=== PATIENT | male | born 1965 | race Caucasian/White ===

== ENCOUNTER 2022-09-06 08:24 | Outpatient (OUT) | payer OTHER, SELFPAY | END 2022-09-06 08:25 | disposition home or self-care (01) | LOC: LAB 08:24 | PROVIDERS: PCP Family Medicine; Visit Provider Family Medicine | DX: R19.7 Diarrhea, unspecified (principal) | CPT/HCPCS: 87045; 87046; 87427; 87493; 87507 ==

== ENCOUNTER 2022-11-27 14:05 | Outpatient (OUT) | payer OTHER, SELFPAY ==
[2022-11-27 14:54] LABS: Hematocrit 42.1 % (42.0-54.0); Hemoglobin 14.2 g/dL (14.0-18.0); Mean Corpuscular HGB Conc 33.7 g/dL (29.9-35.2); Mean Corpuscular Hemoglobin 31.6 pg (25.9-34.0); Mean Corpuscular Volume 93.6 fL (80.0-94.0); Mean Platelet Volume 9.4 fL (9.5-13.5); Platelet Count 235 10^3/uL (150-450); Red Cell Distribution Width 12.8 % (11.0-15.0); White Blood Count 5.3 10^3/uL (4.0-11.0)
[2022-11-27 15:00] LABS: Bilirubin Urine NEGATIVE (NEGATIVE); Blood Urine NEGATIVE (NEGATIVE); Clarity Urine CLEAR (CLEAR); Color Urine YELLOW (YELLOW); Glucose Urine UA NEGATIVE (NEGATIVE); Ketones Urine NEGATIVE (NEGATIVE); Leukocyte Esterase Urine NEGATIVE (NEGATIVE); Nitrite Urine NEGATIVE (NEGATIVE); Protein Urine NEGATIVE (NEG/TRACE); Urobilinogen Urine 0.2 EU/dL (0.2-1.0); pH Urine 5.5 (5.0-9.0)
[2022-11-27 15:08] LABS: Bacteria Urine NONE SEEN #/HPF (NONE SEEN); Mucus Urine NONE SEEN (NONE SEEN); RBC Urine NONE SEEN #/HPF (0-2); Squamous Epithelial Cell Urine RARE #/LPF (NONE/RARE); WBC Urine NONE SEEN #/HPF (NONE SEEN)
[2022-11-27 15:09] LABS: Cast Seen? SEEN #/LPF (NONE SEEN); Hyaline Casts Urine MODERATE
[2022-11-27 15:18] LABS: Creatinine Urine Random 128.19 mg/dL (20.00-300.00); Protein Creatinine Ratio Urine 0.08; Total Protein Urine Random 10.1 mg/dL (<=11.9)
[2022-11-27 15:26] LABS: Percent Iron Saturation 52.7 %
[2022-11-27 15:27] LABS: Albumin Level 3.8 g/dL (3.4-5.0); Anion Gap 11.3; BUN Creatinine Ratio 15.1; Calcium 8.9 mg/dL (8.5-10.1); Carbon Dioxide 29.3 mmol/L (21.0-32.0); Chloride 106 mmol/L (98-107); Estimated GFR (African America >60 (>=60); Estimated GFR (Non-African Ame 52 (>=60); Glucose 137 mg/dL (74-106); Magnesium 1.7 mg/dL (1.8-2.4); Phosphorus 2.2 mg/dL (2.6-4.7); Potassium 3.6 mmol/L (3.5-5.1); Sodium 143 mmol/L (136-145); Uric Acid 7.2 mg/dL (3.5-7.2)
[2022-11-28 11:09] LABS: PTH, Intact 59 pg/mL (15-65)
== END 2022-11-27 14:06 | disposition home or self-care (01) ==
LOC: LAB 14:07
PROVIDERS: PCP Family Medicine; Visit Provider Internal Medicine
DX: E11.22 Type 2 diabetes mellitus with diabetic chronic kidney disease (principal); N18.30 Chronic kidney disease, stage 3 unspecified; I12.9 Hypertensive chronic kidney disease with stage 1 through stage 4 chronic kidney disease, or unspecified chronic kidney disease; N25.81 Secondary hyperparathyroidism of renal origin; R31.29 Other microscopic hematuria; N20.0 Calculus of kidney; E79.0 Hyperuricemia without signs of inflammatory arthritis and tophaceous disease; D63.1 Anemia in chronic kidney disease
CPT/HCPCS: 36415; 80069; 81001; 82306; 82570; 82728; 83540; 83550; 83735; 83970; 84156; 84550; 85027

== ENCOUNTER 2022-12-24 10:50 | Outpatient (OUT) | payer OTHER, SELFPAY ==
--- NOTE | 2022-12-24 10:54 | XR_ITS ---
The [address] [address] Patient Name: SUKHDEEP SIMENTAL MRN: [id number] date: 1965 Sex: M Assigned Patient Location: [facility] Current Patient Location: [facility] Accession/Order Number: [id number] Exam Date: 12/24/2022 11:10 Report Date: 12/24/2022 11:27 At the request of: BLAYNE ISABEL Procedure: XR chest 2V EXAM: XR chest 2V HISTORY: Left Lower Lobe Consolidation J18.1 COMPARISON: None. TECHNIQUE: PA and lateral views of the chest. FINDINGS: The cardiomediastinal silhouette is normal. No focal consolidation is identified. There is no pneumothorax. No pleural effusion is noted. The osseous structures are intact. XR/XR chest 2V IMPRESSION: No acute cardiopulmonary process. Electronically authenticated by: SHANIA ORTEGA Date: 12/24/2022 11:27
== END 2022-12-24 10:51 | disposition home or self-care (01) ==
LOC: RAD 10:50
PROVIDERS: PCP Family Medicine; Visit Provider Family Medicine
DX: J18.1 Lobar pneumonia, unspecified organism (principal)
CPT/HCPCS: 71046

== ENCOUNTER 2022-12-25 17:01 | Outpatient (REF) | payer OTHER, SELFPAY | END 2022-12-25 17:02 | disposition home or self-care (01) | LOC: LAB 17:01 | PROVIDERS: PCP Family Medicine; Visit Provider Family Medicine | DX: J18.1 Lobar pneumonia, unspecified organism (principal) | CPT/HCPCS: 87070; 87106; 87205 ==

== ENCOUNTER 2023-01-30 10:14 | Outpatient (OUT) | payer OTHER, SELFPAY ==
--- NOTE | 2023-01-30 10:19 | CT_ITS ---
The [address] [address] Patient Name: SUKHDEEP SIMENTAL MRN: [id number] date: 1965 Sex: M Assigned Patient Location: CT Current Patient Location: CT Accession/Order Number: [id number] Exam Date: 01/30/2023 10:28 Report Date: 01/30/2023 10:54 At the request of: CECELIA MURILLO Procedure: CT abdomen pelvis wo con EXAM: CT abdomen pelvis wo con HISTORY: Kidney Stones N20.0 COMPARISON: CT abdomen and pelvis 07/06/2022.. TECHNIQUE: Axial soft tissue windows of the abdomen and pelvis with coronal and sagittal reformats. CT dose reduction technique was used including Automated Exposure Control. Findings: Lack of intravenous contrast limits evaluation. ABDOMEN: Within segment 4 of the liver there is a 1.0 cm cyst. There are couple other scattered hepatic low-attenuation lesions, too small to characterize. The gallbladder, spleen, pancreas, and adrenal glands are unremarkable. Mild nonspecific bilateral perinephric fat stranding. Originating from the lower pole the right kidney is a 2.7 cm cyst. There are nonobstructing bilateral renal stones. The largest is within the lower pole the right kidney measuring approximately 0.9 cm. No renal collecting system or ureteral dilatation bilaterally. Evaluation of the bowel is limited given the absence of oral contrast. There is a small region of inflammation adjacent to the distal descending colon which is stable when compared to the prior study. No bowel obstruction. Colonic diverticula. Postsurgical changes consistent with sleeve gastrectomy. The appendix is nondilated. The aorta is normal caliber. No enlarged abdominal lymph nodes or free abdominal fluid. Small fat-containing umbilicus hernia. Pelvis: Unremarkable bladder. The prostate is nonenlarged. No enlarged pelvic lymph nodes or free pelvic fluid. No aggressive sclerotic or lytic osseous lesions. Multilevel lumbar fusion and laminectomies. CT/CT abdomen pelvis wo con IMPRESSION: 1. Nonobstructing bilateral renal stones. 2. Other more incidental findings, as described above. Electronically authenticated by: SUZANNE CHRISTENSEN Date: 01/30/2023 10:54
== END 2023-01-30 10:15 | disposition home or self-care (01) ==
LOC: CT 10:14
PROVIDERS: PCP Family Medicine; Visit Provider Urology
DX: N20.0 Calculus of kidney (principal)
CPT/HCPCS: 74176

== ENCOUNTER 2023-02-12 12:52 | Outpatient (RCR) | payer OTHER, SELFPAY | END 2023-02-24 08:17 | disposition home or self-care (01) | LOC: PT 12:52 | PROVIDERS: PCP Family Medicine; Visit Provider Family Medicine | DX: R20.2 Paresthesia of skin (principal); R20.0 Anesthesia of skin | CPT/HCPCS: 97110; 97140; 97163 ==

== ENCOUNTER 2023-02-12 12:53 | Outpatient (RCR) | payer OTHER, SELFPAY | END 2023-02-24 08:16 | disposition home or self-care (01) | LOC: OT 12:53 | PROVIDERS: PCP Family Medicine; Visit Provider Family Medicine | DX: R20.2 Paresthesia of skin (principal); R20.0 Anesthesia of skin | CPT/HCPCS: 97165 ==

== ENCOUNTER 2023-02-25 09:33 | Outpatient (RCR) | payer OTHER, SELFPAY | END 2023-03-01 16:03 | disposition home or self-care (01) | LOC: PT 09:33 | PROVIDERS: PCP Family Medicine; Visit Provider Family Medicine | DX: R20.2 Paresthesia of skin (principal); R20.0 Anesthesia of skin | CPT/HCPCS: 97140 ==

== ENCOUNTER 2023-04-03 09:49 | Outpatient (OUT) | payer OTHER, SELFPAY ==
--- NOTE | 2023-04-03 09:52 | CT_ITS ---
The [address] [address] Patient Name: SUKHDEEP SIMENTAL MRN: [id number] date: 1965 Sex: M Assigned Patient Location: CT Current Patient Location: CT Accession/Order Number: [id number] Exam Date: 04/03/2023 10:04 Report Date: 04/03/2023 10:35 At the request of: NON-STAFF PHYSICIAN Procedure: CT lumbar spine wo con EXAM: CT lumbar spine wo con HISTORY: Spinal Stenosis Of Lumbar M48.062 COMPARISON: 01/30/2023 TECHNIQUE: Axial CT images were obtained of the lumbar spine without intravenous contrast. Multiplanar reconstructions were performed. FINDINGS: No acute fracture or malalignment. There is a chronic fibrous union fracture of the superior endplate of the L2 vertebral body, middle column of the spine, at the site of pedicle screws. There are postoperative changes of a posterior lumbar fusion and laminectomy spanning L2-S1. Intervertebral disc constructs are present at L2-L3 and L3-L4. There are extensive multilevel degenerative changes present at these levels. A slight chronic anterolisthesis of L4 on L5 is present. Overall the appearance is not significantly changed from previous exams. There is moderate bilateral neural foraminal stenosis at L5-S1 due to uncovertebral hypertrophy. Mild to moderate left neural foraminal stenosis is present at L2-L3 due to uncovertebral hypertrophy. Evaluation of the soft tissue structures of the spine is limited due to streak artifact from the orthopedic hardware. There is a chronic dextroscoliosis of the lumbar spine. Unremarkable appearance of the paraspinal soft tissues. Multiple nonobstructive renal calculi are noted in the kidneys bilaterally. There is a cyst noted at the lower pole of the right kidney. CT/CT lumbar spine wo con IMPRESSION: 1. No acute abnormality. 2. Postoperative fusion changes spanning L2-S1. 3. Multilevel degenerative changes are present with the greatest degree of bony stenosis at L5-S1 with moderate bilateral neural foraminal stenosis and at L2-L3 with moderate left-sided neural foraminal stenosis. Evaluation of the soft tissues is limited due to streak artifact from orthopedic hardware. 4. Nephrolithiasis Electronically authenticated by: HERRERA LAMAS Date: 04/03/2023 10:35
== END 2023-04-03 09:50 | disposition home or self-care (01) ==
LOC: CT 09:50
PROVIDERS: PCP Family Medicine
DX: M48.062 Spinal stenosis, lumbar region with neurogenic claudication (principal)
CPT/HCPCS: 72131

== ENCOUNTER 2023-06-21 09:40 | Outpatient (OUT) | payer OTHER, SELFPAY ==
[2023-06-21 10:28] LABS: Basophils Percent Auto 0.8 % (0.2-2.0); Eosinophils Absolute Auto 0.2 10^3/uL (0.0-0.7); Hematocrit 42.7 % (42.0-54.0); Hemoglobin 14.4 g/dL (14.0-18.0); Immature Granulocytes Abs Auto 0.01 10^3/uL (0.00-0.03); Immature Granulocytes Pct Auto 0.2 % (0.0-0.5); Lymphocytes Absolute Auto 0.8 10^3/uL (1.2-3.8); Lymphocytes Percent Auto 17.4 % (20.5-60.0); Mean Corpuscular HGB Conc 33.7 g/dL (29.9-35.2); Mean Corpuscular Hemoglobin 31.6 pg (25.9-34.0); Mean Corpuscular Volume 93.6 fL (80.0-94.0); Monocytes Absolute Auto 0.9 10^3/uL (0.3-0.8); Monocytes Percent Auto 18.4 % (1.7-12.0); Neutrophils Absolute Auto 2.8 10^3/uL (1.4-6.5); Neutrophils Percent Auto 59.2 % (43.0-75.0); Platelet Count 203 10^3/uL (150-450); Red Blood Count 4.56 10^6/uL (4.70-6.10); Red Cell Distribution Width 12.1 % (11.0-15.0); White Blood Count 4.7 10^3/uL (4.0-11.0)
[2023-06-21 11:46] LABS: Prostate Specific Antigen Scrn 1.11 ng/mL (<=4.00)
[2023-06-21 11:50] LABS: Estimated Average Glucose 111 mg/dL; Glycohemoglobin A1C 5.5 % (4.5-6.2)
[2023-06-21 11:59] LABS: Alanine Aminotransferase 26 U/L (16-63); Albumin Level 3.6 g/dL (3.4-5.0); Alkaline Phosphatase 77 U/L (46-116); Anion Gap 10.2; Aspartate Amino Transferase 23 U/L (15-37); BUN Creatinine Ratio 14.3; Calcium 8.7 mg/dL (8.5-10.1); Carbon Dioxide 31.4 mmol/L (21.0-32.0); Chloride 105 mmol/L (98-107); Chol HDL Ratio 3.3; Cholesterol 154 mg/dL (<=200); Estimated GFR (African America >60 (>=60); Estimated GFR (Non-African Ame 55 (>=60); Free T3 3.08 pg/mL (2.18-3.98); Globulin 3.5 g/dL; Glucose 105 mg/dL (74-106); HDL Cholesterol 47 mg/dL (40-60); Potassium 3.6 mmol/L (3.5-5.1); Sodium 143 mmol/L (136-145); Thyroid Stimulating Hormone 0.478 uIU/mL (0.358-3.740); Total Protein 7.1 g/dL (6.4-8.2); Triglycerides 95 mg/dL (<=150)
== END 2023-06-21 09:41 | disposition home or self-care (01) ==
LOC: LAB 09:40
PROVIDERS: PCP Family Medicine; Visit Provider Family Medicine
DX: Z00.00 Encounter for general adult medical examination without abnormal findings (principal); E78.5 Hyperlipidemia, unspecified; R73.9 Hyperglycemia, unspecified; Z12.5 Encounter for screening for malignant neoplasm of prostate; I50.30 Unspecified diastolic (congestive) heart failure; I11.0 Hypertensive heart disease with heart failure
CPT/HCPCS: 36415; 80053; 80061; 83036; 83880; 84436; 84443; 84481; 84550; 85025; G0103

== ENCOUNTER 2023-10-01 14:04 | Outpatient (OUT) | payer OTHER, SELFPAY ==
--- NOTE | 2023-10-01 14:17 | XR_ITS ---
The [address] [address] Patient Name: SUKHDEEP SIMENTAL MRN: [id number] date: 1965 Sex: M Assigned Patient Location: [facility] Current Patient Location: Accession/Order Number: [id number] Exam Date: 10/01/2023 14:10 Report Date: 10/03/2023 06:26 At the request of: NON-STAFF PHYSICIAN Procedure: XR lumbar spine 2-3V EXAMINATION: XR lumbar spine 2-3V HISTORY: Lumbar Region Radiculopathy M54.16 ; chronic low back pain COMPARISON: CT lumbar spine 04/03/2023 FINDINGS: BONES: Mechanical fusion L2-S1 via bilateral pedicle screws and rods; no appreciable hardware fracture or loosening. No bone fracture or significant listhesis. Mild-moderate curvature of lumbar spine. Posterior decompression L2-S1. DISC SPACES: Intervertebral disc spacers L2-L3, L3-L4. Moderate-marked narrowing L4-L5, L5-S1. PARASPINOUS: Negative. No paraspinous abnormality is seen. OTHER: Negative. XR/XR lumbar spine 2-3V IMPRESSION: 1. Grossly stable surgical changes and degenerative changes. No appreciable progression or acute abnormality. Electronically authenticated by: AUSTIN LARIOS Date: 10/03/2023 06:26
== END 2023-10-01 14:05 | disposition home or self-care (01) ==
LOC: RAD 14:04
PROVIDERS: PCP Family Medicine
DX: M47.26 Other spondylosis with radiculopathy, lumbar region (principal)
CPT/HCPCS: 72100

== ENCOUNTER 2023-10-29 12:52 | Outpatient (OUT) | payer OTHER, SELFPAY ==
[2023-10-29 13:23] LABS: Hematocrit 47.7 % (42.0-54.0); Hemoglobin 16.8 g/dL (14.0-18.0); Mean Corpuscular HGB Conc 35.2 g/dL (29.9-35.2); Mean Corpuscular Hemoglobin 32.2 pg (25.9-34.0); Mean Corpuscular Volume 91.6 fL (80.0-94.0); Mean Platelet Volume 8.9 fL (9.5-13.5); Platelet Count 236 10^3/uL (150-450); Red Blood Count 5.21 10^6/uL (4.70-6.10); Red Cell Distribution Width 11.5 % (11.0-15.0); White Blood Count 6.9 10^3/uL (4.0-11.0)
[2023-10-29 13:43] LABS: Creatinine Urine Random 15.18 mg/dL (20.00-300.00); Total Protein Urine Random <6.0 mg/dL (<=11.9)
[2023-10-29 13:46] LABS: Bilirubin Urine NEGATIVE (NEGATIVE); Blood Urine NEGATIVE (NEGATIVE); Clarity Urine CLEAR (CLEAR); Color Urine LT. YELLOW (YELLOW); Glucose Urine UA NEGATIVE (NEGATIVE); Ketones Urine NEGATIVE (NEGATIVE); Leukocyte Esterase Urine NEGATIVE (NEGATIVE); Nitrite Urine NEGATIVE (NEGATIVE); Protein Urine NEGATIVE (NEG/TRACE); Specific Gravity Urine 1.015 (1.005-1.025); Urobilinogen Urine 0.2 EU/dL (0.2-1.0)
[2023-10-29 13:55] LABS: Bacteria Urine NONE SEEN #/HPF (NONE SEEN); Mucus Urine NONE SEEN (NONE SEEN); RBC Urine NONE SEEN #/HPF (0-2); WBC Urine NONE SEEN #/HPF (NONE SEEN)
[2023-10-29 13:56] LABS: Cast Seen? SEEN #/LPF (NONE SEEN); Hyaline Casts Urine RARE; Squamous Epithelial Cell Urine FEW #/LPF (NONE/RARE)
[2023-10-29 13:56] LABS: Albumin Level 3.7 g/dL (3.4-5.0); Anion Gap 15.1; BUN Creatinine Ratio 18.4; Carbon Dioxide 26.8 mmol/L (21.0-32.0); Chloride 103 mmol/L (98-107); Estimated GFR (African America >60 (>=60); Estimated GFR (Non-African Ame 51 (>=60); Glucose 167 mg/dL (74-106); Magnesium 1.9 mg/dL (1.8-2.4); Phosphorus 2.3 mg/dL (2.6-4.7); Potassium 3.9 mmol/L (3.5-5.1); Sodium 141 mmol/L (136-145); Uric Acid 7.9 mg/dL (3.5-7.2)
[2023-10-30 10:09] LABS: PTH, Intact 91 pg/mL (15-65)
== END 2023-10-29 12:53 | disposition home or self-care (01) ==
LOC: LAB 12:52
PROVIDERS: PCP Family Medicine; Visit Provider Internal Medicine
DX: N18.30 Chronic kidney disease, stage 3 unspecified (principal); E11.22 Type 2 diabetes mellitus with diabetic chronic kidney disease; I12.9 Hypertensive chronic kidney disease with stage 1 through stage 4 chronic kidney disease, or unspecified chronic kidney disease; N25.81 Secondary hyperparathyroidism of renal origin; R31.29 Other microscopic hematuria; N20.0 Calculus of kidney; E79.0 Hyperuricemia without signs of inflammatory arthritis and tophaceous disease
CPT/HCPCS: 36415; 80069; 81001; 82306; 82570; 83735; 83970; 84156; 84550; 85027

== ENCOUNTER 2023-11-22 15:54 | Outpatient (OUT) | payer OTHER, SELFPAY ==
--- OUTSIDE RECORDS SUMMARY | 2023-11-22 15:59 | XMS_ITS | CCD ---
Author Organization [facility] CliniSywv Care Team Providers Care Hl7 Interface Developer Name Role Phone Derick Isabel Primary Care Provider SUZANNE DAVIES Attending Unavailable DERICK ISABEL Primary Care Unavailable ALINE BHATTI Referring Unavailable DERICK ISABEL Primary Care Unavailable ALINE BHATTI Referring Unavailable DERICK ISABEL Primary Care Unavailable ROSE HILTON Attending Unavailable DERICK ISABEL Primary Care Unavailable DERICK ISABEL Consulting Unavailable Derick Isabel Primary Care Provider [phone] Derick Isabel Primary Care Provider Octavio Becker Attending Provider Derick Isabel MD Primary Care Provider OCTAVIO MCCLELLAN Referring Unavailable DERICK ISABEL Primary Care Unavailable OCTAVIO MCCLELLAN Referring Unavailable DERICK ISABEL Primary Care Unavailable OCTAVIO MCCLELLAN Referring Unavailable DERICK ISABEL Primary Care Unavailable OCTAVIO MCCLELLAN Admitting Unavailable OCTAVIO MCCLELLAN Attending Unavailable DERICK ISABEL Primary Care Unavailable AGUSTIN FISCHER Consulting Unavailable LEISA PERRY Referring Unavailable DERICK ISABEL Primary Care Unavailable DORIE RUSH Consulting Unavailable SAI OWENS Attending Unavailable SAI OWENS Admitting Unavailable UNKNOWN, PHYSICIAN Referring Unavailable UNKNOWN, PHYSICIAN Primary Care Unavailable PAYTON HELM Attending Unavailable PAYTON HELM Admitting Unavailable Oumou Weinstein Unavailable STEPH Lowry Attending Provider Estephanie Lowry Unavailable STEPH Lowry Attending Provider NO FAMILY, PHYSICIAN Primary Care Provider Unava ilDO Gianni Balderasia Attending Provider [phone] Estephanie Lowry Admitting Unavailable Estephanie Lowry Attending Unavailable NO FAMILY, PHYSICIAN Primary Care Unavailable NO FAMILY, PHYSICIAN Primary Care Unavailable Gianni Richter Admitting Unavailable Gianni Richter Attending Unavailable Derick Isabel Primary Care Physician LIDIA ., DR RAI Consulting Unavailable MURILLO ., DR RAI Admitting Unavailable MURILLO ., DR RAI Attending Unavailable HOY ., DR CISNEROS Primary Care Unavailable BREE, ALBERTASAM Consulting Unavailable HOY ., DR CISNEROS Attending Unavailable HOY ., DR CISNEROS Consulting Unavailable HOY ., DR CISNEROS Primary Care Unavailable HOY ., DR CISNEROS Admitting Unavailable MISC, DR GARCIA Admitting Unavailable MISC, DR GARCIA Attending Unavailable WEST, DR OBIE Swartz Consulting Unavailable HOY ., DR CISNEROS Primary Care Unavailable MISC, DR GARCIA Consulting Unavailable CORINNA, OUMOU Admitting Unavailable CORINNA, OUMOU Attending Unavailable HOY ., DR CISNEROS Consulting Unavailable HOY ., DR CISNEROS Primary Care Unavailable MISC, DR GARCIA Consulting Unavailable MISC, DR GARCIA Admitting Unavailable MISC, DR GARCIA Attending Unavailable HOY ., DR CISNEROS Primary Care Unavailable HOY ., DR CISNEROS Attending Unavailable HOY ., DR CISNEROS Referring Unavailable HOY ., DR CISNEROS Consulting Unavailable HOY ., DR CISNEROS Primary Care Unavailable HOY ., DR CISNEROS Admitting Unavailable CORINNA, OUMOU Attending Unavailable CORINNA, OUMOU Admitting Unavailable HOY ., DR CISNEROS Primary Care Unavailable HOY ., DR CISNEROS Consulting Unavailable HOY ., DR ICSNEROS Primary Care Unavailable HOY ., DR CISNEROS Admitting Unavailable HOY ., DR CISNEROS Attending Unavailable HOY ., DR CISNEROS Attending Unavailable HOY ., DR CISNEROS Consulting Unavailable HOY ., DR CISENROS Primary Care Unavailable HOY ., DR CISNEROS Admitting Unavailable WEST, DR OBIE Swartz Consulting Unavailable HOY ., DR CISNEROS Attending Unavailable HOY ., DR CISNEROS Consulting Unavailable HOY ., DR CISNEROS Primary Care Unavailable HOY ., DR CISNEROS Admitting Unavailable MISC, DR GARCIA Admitting Unavailable HOY ., DR CISNEROS Consulting Unavailable MISC, DR GARCIA Attending Unavailable HOY ., DR CISNEROS Primary Care Unavailable MISC, DR GARCIA Consulting Unavailable CORINNA, OUMOU Admitting Unavailable CORINNA, OUMOU Attending Unavailable CORINNA, OUMOU Consulting Unavailable HOY ., DR CISNEROS Primary Care Unavailable HOY ., DR CISNEROS Consulting Unavailable HOY ., DR CISNEROS Admitting Unavailable HOY ., DR CISNEROS Primary Care Unavailable HOY ., DR CISNEROS Attending Unavailable WEST, DR OBIE Swartz Consulting Unavailable BARBARA SCHRADER Consulting Unavailable HOY ., DR CISNEROS Consulting Unavailable HOY ., DR CISNEROS Admitting Unavailable HOY ., DR CISNEROS Primary Care Unavailable HOY ., DR CISNEROS Attending Unavailable ZIEBER, DR AUSTIN Jj Consulting Unavailable HOY ., DR CISNEROS Attending Unavailable HOY ., DR ICSNEROS Consulting Unavailable HOY ., DR CISNEROS Primary Care Unavailable HOY ., DR CISNEROS Admitting Unavailable CORINNA, OUMOU Attending Unavailable CORINNA, OUMOU Consulting Unavailable HOY ., DR CISNEROS Primary Care Unavailable CORINNA, OUMOU Admitting Unavailable MISC, DR GARCIA Consulting Unavailable MISC, DR GARCIA Admitting Unavailable MISC, DR GARCIA Attending Unavailable HOY ., DR CISNEROS Primary Care Unavailable HOY ., DR CISNEROS Attending Unavailable HOY ., DR CISNEROS Consulting Unavailable HOY ., DR CISNEROS Primary Care Unavailable HOY ., DR CISNEROS Admitting Unavailable HOY ., DR CISNEROS Primary Care Unavailable HOY ., DR CISNEROS Consulting Unavailable HOY ., DR CISNEROS Admitting Unavailable HOY ., DR CISNEROS Attending Unavailable WEST, DR OBIE Swartz Consulting Unavailable ZIEBER, DR AUSTIN Jj Consulting Unavailable MURILLO ., DR RAI Admitting Unavailable MURILLO ., DR RAI Attending Unavailable MURILLO ., DR RAI Consulting Unavailable HOY ., DR CISNEROS Primary Care Unavailable WEST, DR OBIE Swartz Consulting Unavailable MISC, DR DOCTOR Recio Unavailable MISC, DR GARCIA Admitting Unavailable MISC, DR GARCIA Attending Unavailable HOY ., DR CISNEROS Primary Care Unavailable LEISA PERRY Admitting Unavailable LEISA PERRY Attending Unavailable MYRANDA .SCARLET Consulting Unavailabl e HOChad ., DR CISNEROS Primary Care Unavailable MISC, DR GARCIA Consulting Unavailable MISC, DR GARCIA Admitting Unavailable MISC, DR GARCIA Attending Unavailable HOY ., DR CISNEROS Primary Care Unavailable Derick Isabel MD Primary Care Provider [phone] ELGAFY, JASON Attending Unavailable SHENDGE, VITHAL Admitting Unavailable SHENDGE, VITHAL Attending Unavailable SHENDGE, VITHAL Referring Unavailable ELGAFY, JASON Attending Unavailable ELGAFY, JASON Referring Unavailable ELGAFY, JASON Referring Unavailable SHENDGE, VITHAL Referring Unavailable SHENDGE, VITHAL Admitting Unavailable SHENDGE, VITHAL Attending Unavailable SHENDGE, VITHAL Referring Unavailable ELGAFY, JASON Attending Unavailable SHENDGE, VITHAL Attending Unavailable SHENDGE, VITHAL Attending Unavailable SHENDGE, VITHAL Referring Unavailable SHENDGE, VITHAL Referring Unavailable SHENDGE, VITHAL Attending Unavailable NATHALY SINGH Attending Unavailable SHENDGE, VITHAL Attending Unavailable SHENDGE, VITHAL Attending Unavailable ELGAFY, JASON Attending Unavailable ELGAFY, JASON Referring Unavailable ELGAFY, JASON Referring Unavailable HABBOUB, EDD Attending Unavailable HABBOUB, EDD Admitting Unavailable HOY, DERICK M Primary Care Unavailable LUUL OVIEDO Consulting Unavailabl Cecelia Goldberg Attending Unavailable Cecelia MURILLO Attending Unavailable Cecelia MURILLO Attending Unavailable Cecelia MURILLO Attending Unavailable NILLCj Attending Unavailable Sarmady, Derick Referring Unavailable NILL, Cj Jj Attending Unavailable Hoy, Derick Referring Unavailable Cecelia MURILLO Attending Unavailable Cecelia MURILLO Attending Unavailable Derick Isabel MD Primary Care Provider [phone] Derick Isabel MD Primary Care Provider [phone] DERICK ISABEL Primary Care Unavailable HABBOUB, EDD Referring Unavailable CJ GALLOWAY Referring Unavailable HOY, DERICK M Primary Care Unavailable HOY, DERICK M Primary Care Unavailable CJ GALLOWAY Referring Unavailable AHSAN FLYNN Attending Unavailable HOY, DERICK M Referring Unavailable HOY, DERICK M Primary Care Unavailable AHSAN FLYNN Attending Unavailable HOY, DERICK M Referring Unavailable HOY, DERICK M Primary Care Unavailable RIDDHI GOSS Attending Unavailable HOY, DERICK M Primary Care Unavailable MYRNA SCHRADER Attending Unavailable HOY, DERICK M Primary Care Unavailable HABBOUB, EDD Attending Unavailable ELGAFY, JASON KAMAL Referring Unavailabl e DERICK ISABEL Primary Care Unavailable EDD MATHEW Attending Unavailable SELF Referring Unavailable DERICK ISABEL Primary Care Unavailable EDD MATHEW Referring Unavailable DERICK ISABEL Primary Care Unavailable EDD MATHEW Attending Unavailable DERICK ISABEL Primary Care Unavailable HELEN MORGAN Referring Unavailable DERICK ISABEL Primary Care Unavailable Unavailable Unavailable Unavailable Allergies Allergy Classification Reported Allergen(s) Allergy Type Date of Onset Reaction(s) Facility (8 sources) Povidone-Iodine; Translations: [povidone iodine topical] Drug Allergy 9 [facility] (11 sources) Povidone-Iodine; Translations: [povidone-iodine] Drug Allergy 9 [facility] (9 sources) soap; Translations: [soap] Allergy to substance 9 [facility] (9 sources) Chlorhexidine; Translations: [CHLORHEXIDINE] Drug Allergy 1 [facility] (9 sources) Iodine; Translations: [IODINE] Drug Allergy 9 [facility] Work Phone: (8 sources) Loratadine; Translations: [loratadine] Drug Allergy 2 [facility] (1 source) Chlorhexidine Drug Allergy [facility] (1 source) Povidone-Iodine; Translations: [Betadine] Drug Allergy [facility] Rep[facility] Medications Current Medications Medication Drug Class(es) Dates Sig (Normalized) Sig (Original) acetaminophen 500 mg oral tablet (8 sources) Start: 01-02-2022 End: 01-10-2023 take 2 tablets by mouth every eight hours acetaminophen (TYLENOL EXTRA STRENGTH) 500 mg tablet TAKE TWO TABLETS BY MOUTH EVERY 8 HOURS 0 01/02/2022 Active Comment on above: [facility] 2 tablets [facility] every 8 hours. acetaminophen 325 mg / HYDROcodone bitartrate 5 mg oral tablet (17 sources) Opioid Agonist Start: 11-10-2021 HYDROcodone-acetami nophen (NORCO) 5-325 mg per tablet Take 1 tablet by mouth 4 (four) times a day as needed. Max Daily Amount: 4 tablets 0 11/10/2021 Active Start: 05-05-2020 End: 05-08-2021 HYDROcodone-acetaminophen (N ORCO) 5-325 MG per tablet Hydrocodone-Acetaminophen Active 1 TAB PO As Directed May 05, 2020 11:40am 0 05/05/2020 05/08/2021 Discontinued (LIST CLEANUP) Start: 05-05-2020 End: 11-07-2023 Hydrocodone-Acetaminophen Di scontinued 1 TAB PO As Directed May 05, 2020 1:00am November 07, 2023 11:13am Start: 04-11-2019 End: 04-14-2019 take 1 tablet by mouth every four hours as needed for pain, then take 1 tablet by mouth as needed for pain HYDROcodone-acetaminophen (NORCO) 5-325 MG per tablet Indications: Acute bilateral low back pain with right-sided sciatica , Traumatic buttock pain Take 1 tablet by mouth every 4 hours as needed for Pain for up to 3 days. Intended supply: 3 days. Take lowest dose possible to manage pain 15 tablet 0 04/11/2019 04/14/2019 Active take 1 tablet by [facility] every six hours HYDROcodone-Acetaminophen 5-325 MG 1 tab let as needed Orally every 6 hrs Active acetaminophen 325 mg / oxyCODONE hydrochloride 10 mg oral tablet (9 sources) Opioid Agonist Start: 11-07-2023 take 1 tablet by mouth every six hours Oxycodone-Acetaminophen Active 1 TAB PO Every 6 hours November 07, 2023 12:00am Start: 10-10-2022 take 1 tablet by [facility] every six hours as needed for pain acetaminophen-oxycodone 325 mg-10 mg ora l tablet 1 tab(s), Oral, q6hr as needed for pain, Refill(s) 0 Start Date: 10/10/22 Status: Ordered Start: 05-25-2021 End: 06-01-2021 oxyCODONE-acetaminophen (PER COCET) 5-325 MG per tablet Indications: S/P laparoscopic sleeve gastrectomy Take 1 tablet by mouth every 6 hours as needed for Pain for up to 7 days. Intended supply: 7 days. Take lowest dose possible to manage pain 28 tablet 0 05/25/2021 06/01/2021 Active Start: 05-24-2021 oxyCODONE-acet aminophen (PERCOCET) 5-325 MG per tablet 1 tablet Start: 11-06-2013 take 1 tablet by [facility] every four hours as needed oxyCODONE-acetaminophen (PERCOCET) 5-325 mg tablet Take 1 tablet by mouth every 4 hours as needed. 20 tablet 0 11/06/2013 Active Comment on above: Take 1 tablet by [facility] every 4 hours as needed. [id number] 200 actuat albuterol 0.09 mg/actuat metered dose inhaler (5 sources) beta2-Adrenergic Agonist Start: 01-07-2021 albuterol (PROVENTIL HFA;VENTOLIN HFA) 90 mcg/actuation inhaler INHALE 2 PUFFS BY MOUTH FOUR TIMES DAILY NEEDED (practice 2 (TWO) puffs 30 MINUTES prior) 0 01/07/2021 Active ALBUTEROL SULFAT E HFA IN Inhale into the lungs as needed 0 Active albuterol 0.833 mg/ml / ipratropium bromide 0.167 mg/ml inhalation solution (1 source) Anticholinergic, beta2-Adrenergic Agonist Start: 05-24-2021 ipratropium-albuterol (DUONEB) nebulizer solution 1 ampule amLODIPine 10 mg oral tablet (7 sources) Dihydropyridine Calcium Channel Merlyn Start: 12-12-2019 take 1 tablet by mouth once daily amLODIPine 10 MG tablet Take 10 mg by mouth daily. 0 12/12/2019 Active Start: 12-12-2019 take 5 mg by mouth once daily amLODIPine 10 MG tablet Take 5 mg by mouth daily. 0 12/12/2019 Active Comment on above: Take 10 mg by mouth once daily. apixaban 5 mg oral tablet (3 sources) Factor Xa Inhibitor take 2 tablets by mouth twice daily, then take 1 tablet by mouth twice daily apixaban (ELIQUIS) 5 mg tablet Eliquis 5 mg tablet TAKE 2 TABLETS BY MOUTH TWICE DAILY FOR 3 DAYS, then TAKE 1 TABLET BY MOUTH TWICE DAILY 0 Active End: 05-08-2021 Apixaban (ELIQUIS PO) Take b y mouth 0 05/08/2021 Discontinued (LIST CLEANUP) aprepitant 40 mg oral capsule (1 source) Substance P/Neurokinin-1 Receptor Antagonist Start: 05-25-2021 aprepitant (EMEND) capsule 80 mg atropine sulfate 0.025 mg / diphenoxylate hydrochloride 2.5 mg oral tablet (2 sources) Anticholinergic, Cholinergic Muscarinic Antagonist, Antidiarrheal Start: 09-12-2018 take 1 tablet by mouth three times daily diphenoxylate-a tropine (LOMOTIL) 2.5-0.025 mg per tablet Take 1 tablet by mouth 3 (three) times a day. 0 09/12/2018 Active 60 actuat budesonide 0.16 mg/actuat / formoterol fumarate 0.0045 mg/actuat metered dose inhaler (2 sources) Corticosteroid, beta2-Adrenergic Agonist Start: 01-01-2021 take 2 puff(s) by inhalation twice daily SYMBICORT 160-4.5 mcg/actuation inhaler Inhale 2 puffs 2 (two) times a day. 0 01/01/2021 Active bumetanide 1 mg oral tablet (20 sources) Loop Diuretic Start: 11-07-2023 take 1 mg by mouth once daily Bumetanide Active 1 MG PO Daily November 07, 2023 12:00am Start: 11-07-2021 take 1 tablet by [facility] once daily bumetanide (BUMEX) 1 mg tablet Take 1 tablet by mouth once daily. 0 11/07/2021 Active Comment on above: Take 1 tablet by [facility] once daily. cyclobenzaprine hydrochloride 10 mg oral tablet (3 sources) Muscle Relaxant Start: 05-24-2021 cyclobenzaprine (FLEXERIL) tablet 10 mg Start: 09-29-2018 [facility] 2 tablets [facility] daily cyclobenzaprine (FLEXERIL) 10 mg tablet Take 20 mg by mouth nightly. 11 09/29/2018 Active diclofenac sodium 75 mg delayed release oral tablet (2 sources) Nonsteroidal Anti-inflammatory Drug Start: 09-09-2018 take 1 tablet by mouth in the morning diclofenac (VOLTAREN) 75 mg EC tablet Take 75 mg by mouth in the morning and 75 mg before bedtime. 11 09/09/2018 Active docusate sodium 100 mg oral capsule (6 sources) Start: 12-11-2022 End: 01-10-2023 take 1 capsule by mouth twice daily docusate sodium (COLACE) 100 mg capsule Take 1 capsule by mouth two times a day. 60 capsule 0 12/11/2022 01/10/2023 Active Comment on above: Take 1 capsule by [facility] two times a day. doxazosin 4 mg oral tablet (20 sources) alpha-Adrenergic Merlyn Start: 02-15-2021 doxazosin (CARDURA) 4 mg tablet Take 4 mg by mouth. 0 02/15/2021 Active Start: 05-05-2020 End: 05-08-2021 take 4 mg by mouth twice daily Doxazosin Active 4 MG P O Twice daily May 05, 2020 1:00am Comment on above: Take 4 mg by mouth. doxepin hydrochloride 10 mg oral capsule (5 sources) Tricyclic Antidepressant Start: take 10 mg by mouth once daily Doxepin Active 10 MG PO Daily November 07, 2023 12:00am Start: 11-29-2022 take 1 capsule by [facility] in the morning doxepin (SINEquan) 10 mg capsule Take 1 capsule (10 mg total) by mouth in the morning. 0 11/29/2022 Active doxycycline hyclate 100 mg oral capsule (4 sources) Tetracycline-class Drug take 1 capsule by mouth in the morning, then take 1 capsule by mouth at bedtime doxycycline (VIBRAMYCIN) 100 mg capsule Take 1 capsule (100 mg total) by mouth in the morning and 1 capsule (100 mg total) before bedtime. 0 Active 1 ml enoxaparin sodium 100 mg/ml prefilled syringe (3 sources) Low Molecular Weight Heparin Start: End: enoxaparin (LOVENOX) 100 MG/ML injection Inject 1 mL into the skin 2 times daily for 10 days 20 mL 0 05/26/2021 06/05/2021 Active Start: 05-24-2021 enoxaparin (LO VENOX) injection 60 mg ergocalciferol 1.25 mg oral capsule (4 sources) Provitamin D2 Compound Start: 01-05-2021 ergocalciferol (DRISDOL) 1,250 mcg (50,000 unit) capsule Take 50,000 Units by mouth. 0 01/05/2021 Active Start: 01-05-2021 take 1 capsule by [facility] vitamin D (ERGOCALCIFEROL) 1.25 MG (51907 UT) CAPS capsule Indications: Vitamin D deficiency Take 1 capsule by mouth once a week for 8 doses 8 capsule 0 01/05/2021 Active famotidine 20 mg oral tablet (12 sources) Histamine-2 Receptor Antagonist Start: 11-07-2021 take 1 tablet by mouth once daily famotidine (PEPCID) 20 mg tablet Take 20 mg by mouth nightly. 0 11/07/2021 Active Start: 05-24-2021 famotidine (PE PCID) tablet 20 mg FeroSul 325 mg oral tablet (3 sources) Start: 03-19-2022 take 1 tablet by mouth twice daily FeroSul 325 mg oral tablet 325 mg = 1 tab(s), Oral, BID, Refills(s) 0 Start Date: 03/19/22 Status: Ordered Start: 03-19-2022 FeroSul 325 mg oral tablet Refills(s) 0 Start Date: 03/19/22 Status: Ordered ferrous sulfate (20 sources) Start: 11-07-2023 take 1 tablet by [facility] twice daily Ferrous Sulfate Active 1 TAB PO Twice daily November 07, 2023 12:00am FreeTextSi tablet Orally twice a day; Note: Source Status: Taking; Provider: Corinna Coello ( ) Start: 10-31-2022 take 1 tablet by [facility] every twelve hours FEROSUL 325 mg (65 mg iron) tablet Take 1 tablet by mouth every 12 (twelve) hours. 0 10/31/2022 Active Start: 11-07-2021 take 1 tablet by [facility] in the morning, then take 1 tablet by mouth at bedtime FeroSuL 325 mg (65 mg iron) tablet Take 1 tablet (325 mg total) by mouth in the morning and 1 tablet (325 mg total) before bedtime. 0 11/07/2021 Active take 1 tablet by [facility] twice daily Ferrous Sulfate 325 (65 Fe) MG 1 tablet Orally twice a day Active Comment on above: Take 1 tablet by [facility] every 12 (twelve) hours. gabapentin 100 mg oral capsule (1 source) Anti-epileptic Agent Start: 022 gabapentin (NEURONTIN) capsule 100 mg hydroCHLOROthiazide 25 mg oral tablet (3 sources) Thiazide Diuretic Start: 020 take 1 tablet by mouth once daily hydroCHLOROthiazide 25 MG tablet Take 1 tablet by mouth daily. 30 tablet 3 02/02/2020 Active HYDROCHLOROTHIAZ NICK ORAL Take by mouth. 0 Active Comment on above: Take by mouth. 1 ml HYDROmorphone hydrochloride 1 mg/ml cartridge (2 sources) Opioid Agonist Start: 05-24-2021 HYDROmorphone (DILAUDID) injection 1 mg Start: 04-11-2019 End: 04-11-2019 HYDROmorphone (DILAUDID) inj ection 1 mg hydrOXYzine hydrochloride 25 mg oral tablet (16 sources) Antihistamine Start: 11-06-2022 take 1 tablet by mouth four times daily as needed hydrOXYzine HCl (ATARAX) 25 mg tablet TAKE 1 TABLET BY MOUTH FOUR TIMES DAILY NEEDED MUST LAST 30 DAYS 0 11/06/2022 Active Comment on above: TAKE 1 TABLET BY [facility] FOUR TIMES DAILY NEEDED MUST LAST 30 DAYS indomethacin 50 mg oral capsule (7 sources) Nonsteroidal Anti-inflammatory Drug indomethacin (INDOCIN) 50 mg capsule Take 50 mg by mouth in the morning and 50 mg at noon and 50 mg in the evening. Take with meals. 0 Active indomethacin 50 MG capsule Every 6 hours. 0 Active irbesartan 300 mg oral tablet (20 sources) Angiotensin 2 Receptor Merlyn Start: 11-07-2023 take 150 mg by mouth once daily Irbesartan Active 150 MG PO Daily November 07, 2023 12:00am Start: 02-15-2020 take 0.5 tablet by m outh once daily irbesartan (AVAPRO) 300 mg tablet 1/2 tablet Orally Once a day for 60 days 0 02/15/2020 Active Start: 02-15-2020 End: 05-08-2021 take 1 tablet by mouth once daily Avapro 300 mg Tab 300 mg = 1 tab(s), Oral, Daily, Refills(s) 0, High blood pressure Start Date: 02/15/20 Status: Ordered take 1 tablet by [facility] every twenty-four hours Irbesartan 150 MG 1 tablet Orally Once a day Active Comment on above: 1/2 tablet Orally On ce a day for 60 days 24 hr levomilnacipran 40 mg extended release oral capsule (2 sources) Serotonin and Norepinephrine Reuptake Inhibitor take 1 capsule by mouth every twenty-four hours in the morning levomilnacipran (FETZIMA) 40 mg capsule,extended release 24 hr Take 40 mg by mouth in the morning. 0 Active LORazepam 1 mg oral tablet (9 sources) Benzodiazepine Start: 023 take 1 tablet by mouth three times daily Ativan 1 mg Tab mg tab(s), Oral, TID, Refills(s) 0 Start Date: 03/19/22 Status: Ordered take 1 tablet by [facility] every six hours as needed LORazepam (ATIVAN) 1 mg tablet Take 1 tablet (1 mg total) by mouth every 6 (six) hours as needed. 0 Active LORazepam (ATIVA N) 0.5 mg tab Take by mouth three times daily as needed. 0 Active take 1 tablet by [facility] every twenty-four hours Ativan 1 MG 1 tablet at bedtime as neede d Orally Once a day Not-Taking Comment on above: Take by mouth three times daily as needed. metFORMIN hydrochloride 500 mg oral tablet (2 sources) Biguanide take 1 tablet by mouth in the morning metFORMIN (GLUCOPHAGE) 500 mg tablet Take 1 tablet by mouth in the morning and 1 tablet before bedtime. 0 Active metoclopramide 10 mg oral tablet (20 sources) Dopamine-2 Receptor Antagonist Start: 03-19-19 23 take 1 tablet by mouth twice daily at bedtime metoclopramide (REGLAN) 10 mg tablet TAKE 1 TABLET BY MOUTH TWICE DAILY (AT SUPPER & AT BEDTIME) 0 08/01/2022 Active Comment on above: Take 10 mg by mouth as needed. metoprolol tartrate 25 mg oral tablet (3 sources) beta-Adrenergic Merlyn Start: 05-26-19 End: 06-25-19 take 1 tablet by mouth twice daily metoprolol tartrate (LOPRESSOR) 25 MG tablet Take 1 tablet by mouth 2 times daily 60 tablet 0 05/25/2021 06/24/2021 Active Start: 05-24-2021 End: 05-25-2021 metoprolol (LOPRESSOR) injec tion 5 mg Multiple Vitamin (ONE-A-DAY MENS PO) (3 sources) Multiple Vitamin (ONE-A-DAY MENS PO) Take by mouth daily 0 Active Multivitamin, Therapeutic w/ Minerals (3 sources) Start: 0 take 1 tablet by mouth once daily Multivitamin, Therapeutic w/ Minerals 1 tab(s), Oral, Daily, Prophylaxis Start Date: 02/23/20 Status: Ordered naloxone hydrochloride 40 mg/ml nasal spray (11 sources) Opioid Antagonist Start: 3 naloxone 4 mg/actuation nasal spray (NARCAN) Use 1 spray in one nostril as needed for overdose. May repeat every 2 to 3 min in alternating nostrils until medical assistance is available 2 Each 0 12/20/2022 Active Comment on above: Use 1 spray in one n ostril as needed for overdose. May repeat every 2 to 3 min in alternating nostrils until medical assistance is available naloxone 4 mg/actuation nasal spray (NARCAN) (1 source) Start: 3 naloxone 4 mg/actuation nasal spray (NARCAN) Use 1 spray in one nostril as needed for overdose. May repeat every 2 to 3 min in alternating nostrils until medical assistance is available 2 Each 0 12/20/2022 Active omeprazole 20 mg delayed release oral capsule (20 sources) Proton Pump Inhibitor Start: take 20 mg by mouth twice daily Omeprazole Active 20 MG PO Twice daily November 07, 2023 12:00am Start: 01-16-2022 take 1 capsule by [facility] twice daily omeprazole (PRILOSEC) 20 mg capsule Indications: Pre-op examination Take 1 capsule by mouth twice daily. 0 11/21/2022 Active Comment on above: Take 1 capsule by [facility] twice daily. 2 ml ondansetron 2 mg/ml injection (4 sources) Serotonin-3 Receptor Antagonist Start: 05-24-2021 ondansetron (ZOFRAN) injection 4 mg Start: 09-29-2018 ondansetron OD T (ZOFRAN-ODT) 4 mg disintegrating tablet Dissolve 1 tablet on tongue as needed. 0 09/29/2018 Active oxaprozin (2 sources) Nonsteroidal Anti-inflammatory Drug oxaprozin (DAYPRO ORAL) Daypro 0 Active oxyCODONE hydrochloride 15 mg oral tablet (7 sources) Opioid Agonist Start: 2022 End: 2022 take 1 tablet by mouth every six hours as needed for pain oxyCODONE (ROXICODONE) 15 mg immediate release tablet Indications: Lumbar adjacent segment disease with spondylolisthesis Take 1 tablet by mouth every 6 hours as needed for pain for up to 7 days. 28 tablet 0 12/20/2022 12/27/2022 Active Start: 12-11-2022 End: 12-18-2022 take 1 tablet by mouth every three hours as needed for pain oxyCODONE (ROXICODONE) 15 mg immediate release tablet Indications: Post-op pain Take 1 tablet by mouth every 3 hours as needed for pain for up to 7 days. 56 tablet 0 12/11/2022 12/18/2022 Active Start: 03-19-2022 oxyCODONE 5 mg Tab Refills(s) 0 Start Date: 03/19/22 Status: Ordered Comment on above: Take 1 tablet by evangel[facility] every 3 hours as needed for pain for up to 7 days. Take 1 tablet by evangel[facility] th every 6 hours as needed for pain for up to 7 days. pantoprazole 40 mg delayed release oral tablet (14 sources) Proton Pump Inhibitor take 1 tablet by mouth in the morning pantoprazole (PROTONIX) 40 mg EC tablet Take 40 mg by mouth in the morning. 0 Active take 40 mg by mouth once daily P antoprazole Sodium (PROTONIX PO) Take 40 mg by mouth daily 0 Active Phenazopyridine (8 sources) Pyridium Active phentermine hydrochloride 37.5 mg oral tablet (6 sources) Sympathomimetic Amine Anorectic Start: 11-07-19 take 1 tablet by mouth once daily Phentermine (Adipex-P) 37.5 mg tablet Active 37.5 MG PO Daily November 07, 2023 12:00am take 1 tablet by mouth once tavo y phentermine (ADIPEX-P) 37.5 mg tablet phentermine 37.5 mg tablet TAKE 1 TABLET BY MOUTH ONCE DAILY 0 Active take 1 capsule by mo uth once daily in the morning phentermine (ADIPEX-P) 37.5 MG capsule T marco antonio 37.5 mg by mouth every morning. 0 Active pioglitazone 30 mg oral tablet (20 sources) Peroxisome Proliferator Receptor alpha Agonist, Peroxisome Proliferator Receptor gamma Agonist, Thiazolidinedione Start: 11-07-2023 take 15 mg by mouth once daily Pioglitazone Active 15 MG PO Daily November 07, 2023 11:13am Start: 12-12-2019 End: 11-07-2023 pioglitazone (ACTOS) 30 mg t ablet take 2 tablets by mo uth in the morning pioglitazone (ACTOS) 15 mg tablet Take 2 tablets (30 mg total) by mouth in the morning. 0 Active predniSONE 20 mg oral tablet (2 sources) Start: 04-12-2019 End: 04-17-2019 take 2 tablets by mouth once daily predniSONE (DELTASONE) 20 MG tablet Take 2 tablets by mouth daily for 5 days 10 tablet 0 04/12/2019 04/17/2019 Active pregabalin 100 mg oral capsule (3 sources) Start: 12-07-2020 End: 05-08-2021 take 1 capsule by mouth in the morning, then take 1 capsule by mouth at bedtime pregabalin (LYRICA) 100 mg capsule Take 1 capsule (100 mg total) by mouth in the morning and 1 capsule (100 mg total) before bedtime. 0 12/07/2020 Active Probiotic Product (PROBIOTIC DAILY PO) (3 sources) Probiotic Produc t (PROBIOTIC DAILY PO) Take by mouth daily 0 Active promethazine hydrochloride 25 mg oral tablet (2 sources) Phenothiazine Start: 05-25-2021 take 1 tablet by mouth every six hours as needed for nausea promethazine (PHENERGAN) 25 MG tablet Take 1 tablet by mouth every 6 hours as needed for Nausea 30 tablet 0 05/25/2021 Active Start: 05-24-2021 promethazine ( PHENERGAN) tablet 25 mg 5 ml sodium chloride 9 mg/ml injection (3 sources) Start: 05-24-2021 0.9 % sodium c hloride infusion Start: 05-24-2021 sodium chlorid e flush 0.9 % injection 5-40 mL spironolactone 100 mg oral tablet (7 sources) Aldosterone Antagonist Start: 01-01-2021 take 1 tablet by mouth once daily spironolactone (ALDACTONE) 100 mg tablet Take 100 mg by mouth daily. 0 01/01/2021 Active End: 05-25-2021 take 1 tablet by mouth every other day spironolactone (ALDACTONE) 100 MG tablet Take 100 mg by mouth every other day 0 05/25/2021 Discontinued (Stop Taking at Discharge) sucralfate 1000 mg oral tablet (16 sources) Aluminum Complex Start: 03-19-2022 take 1 tablet by mouth twice daily sucralfate 1 g Tab 1 gm = 1 tab(s), Oral, BID, Refills(s) 0 Start Date: 03/19/22 Status: Ordered Start: 03-19-2022 sucralfate 1 g Tab Refills(s) 0 Start Date: 03/19/22 Status: Ordered Start: 10-08-2021 take 1 tablet by evangel[facility] at bedtime sucralfate (CARAFATE) 1 gram tablet Take 1 tablet (1 g total) by mouth in the morning and 1 tablet (1 g total) at noon and 1 tablet (1 g total) in the evening and 1 tablet (1 g total) before bedtime. 0 10/08/2021 Active tamsulosin hydrochloride 0.4 mg oral capsule (20 sources) alpha-Adrenergic Merlyn Start: 11-07-2023 take 0.4 mg by mouth once daily at bedtime Tamsulosin Active 0.4 MG PO Daily at bedtime November 07, 2023 12:00am Start: 03-03-2021 [facility] 1 capsule [facility] daily tamsulosin (FLOMAX) 0.4 mg Take 1 capsule by mouth once daily. 0 03/19/2022 Active Comment on above: Take 1 capsule by [facility] once daily. temazepam 15 mg oral capsule (3 sources) Benzodiazepine Start: take 1 capsule by mouth once daily as needed temazepam (RESTORIL) 15 mg capsule Take 15 mg by mouth nightly as needed. 0 01/12/2021 Active End: 05-08-2021 take 2 capsules by mouth once daily as needed for sleep temazepam (RESTORIL) 15 MG capsule Take 30 mg by mouth nightly as needed for Sleep. 0 05/08/2021 Discontinued (LIST CLEANUP) 1 ml testosterone cypionate 200 mg/ml injection (20 sources) Androgen Start: 11-07-2023 inject 200 mg by intramuscular injection every other week Testosterone Cypionate Active 200 MG IM EVERY 2 WEEKS November 07, 2023 12:00am Start: 05-05-2020 testosterone c ypionate (DEPO-TESTOSTERONE) 100 mg/mL injection INJECT 1.5 ML INTO THE MUSCLE EVERY 2 WEEKS DIRECTED 0 05/05/2020 Active Start: 05-05-2020 End: 05-08-2021 inject 100 mg by intramuscular injection every other week testosterone cypionate (DEPOTESTOTERONE CYPIONATE) 100 MG/ML injection Testosterone Cypionate Active 100 MG IM EVERY 2 WEEKS May 05, 2020 11:40am Last taken 05/03/20 0 05/05/2020 05/08/2021 Discontinued (DUPLICATE) Start: 05-05-2020 End: 11-07-2023 inject 100 mg by intramuscular injection every other week Testosterone Cypionate Discontinued 100 MG IM EVERY 2 WEEKS May 05, 2020 1:00am November 07, 2023 11:18am Last taken 05/03/20 inject 0.75 mL by in tramuscular injection every other week Depo-Testosterone 200 MG/ML 3/4 ml Intramuscular every 2 weeks Active Comment on above: INJECT 1.5 ML INTO T HE MUSCLE EVERY 2 WEEKS DIRECTED TESTOSTERONE AQUEOUS IM (3 sources) TESTOSTERONE AQU EOUS IM Inject 0.75 mLs into the muscle every 14 days 0 Active Testosterone Cypionate 200 mg/mL intramuscular solution (3 sources) Start: 023 inject 200 mg by intramuscular injection every other week Testosterone Cypionate 200 mg/mL intramuscular solution 200 mg = 1 mL, IntraMuscular, q2wk, Refills(s) 0 Start Date: 03/19/22 Status: Ordered tiZANidine 4 mg oral tablet (20 sources) Central alpha-2 Adrenergic Agonist Start: 021 tiZANidine (ZANAFLEX) 4 MG tablet 4 mg 1-2 every night 0 05/05/2020 Active Start: 05-05-2020 take 8 mg by mouth o nce daily at bedtime Tizanidine Active 8 MG PO Daily at bedtime May 05, 2020 1:00am Start: 02-15-2020 take 1 tablet by evangel[facility] th every eight hours Zanaflex 4 mg Tab 4 mg = 1 tab(s), Oral, q8hr, Refills(s) 0, Sleep Start Date: 02/15/20 Status: Ordered Start: 08-21-2018 take 2 tablets by mo uth once daily tiZANidine (ZANAFLEX) 4 mg tablet Take 2 tablets (8 mg total) by mouth nightly. 0 08/21/2018 Active tizanidine HCl ( ZANAFLEX ORAL) daily at bedtime. 0 Active tizanidine HCl ( ZANAFLEX ORAL) tiZANidine (Omar flex) 4 MG tablet Every 8 hours. 0 Active Comment on above: daily at bedtime. traZODone hydrochloride 150 mg oral tablet (20 sources) Serotonin Reuptake Inhibitor Start: 4 take 150 mg by mouth once daily at bedtime Trazodone Active 150 MG PO Daily at bedtime November 07, 2023 12:00am Start: 10-31-2022 traZODone (GABINO YREL) 150 mg tablet Start: 04-17-2021 take 1 tablet by [facility] once daily traZODone (DESYREL) 50 mg tablet Take 1 tablet (50 mg total) by mouth nightly. 0 04/17/2021 Active Zinc (3 sources) ZINC PO Take by mouth daily 0 Active Completed/Discontinued Medications Medication Drug Class(es) Dates Sig (Normalized) Sig (Original) amitriptyline hydrochloride 50 mg oral tablet (16 sources) Tricyclic Antidepressant Start: 05-05-2020 End: 11-07-2023 take 150 mg by mouth once daily at bedtime Amitriptyline Discontinued 150 MG PO Daily at bedtime May 05, 2020 1:00am November 07, 2023 11:12am take 1 tablet by mouth once tavo y amitriptyline (ELAVIL) 50 mg tablet Take 50 mg by mouth nightly. 0 Active Comment on above: Take 50 mg by mouth daily at bedtime. baclofen 10 mg oral tablet (4 sources) gamma-Aminobutyric Acid-ergic Agonist Start: 021 End: take 10 mg by mouth once daily at bedtime Baclofen Discontinued 10 MG PO Daily at bedtime May 05, 2020 1:00am November 07, 2023 11:12am Takes if zanaflex is unavailable besifloxacin 6 mg/ml ophthalmic suspension (2 sources) Quinolone Antimicrobial Besifloxacin (BESIVANCE) 0.6 % drps Use 1 Drop in both eyes as directed. 0 Active Comment on above: Use 1 Drop in both e yes as directed. brimonidine tartrate 2 mg/ml / timolol 5 mg/ml ophthalmic solution (2 sources) alpha-Adrenergic Agonist, beta-Adrenergic Merlyn Brimonidine-Timolol (COMBIGAN) 0.2-0.5 % drop Use 1 Drop in the right eye twice daily. 0 Active Comment on above: Use 1 Drop in the ri ght eye twice daily. 168 hr buprenorphine 0.01 mg/hr transdermal system (2 sources) Partial Opioid Agonist apply 1 dose transdermal route every week buprenorphine (BUTRANS) 10 mcg/hour Apply 1 Patch as directed once each week. 0 Active Comment on above: Apply 1 Patch as dir ected once each week. calcium chloride 0.0014 meq/ml / potassium chloride 0.004 meq/ml / sodium chloride 0.103 meq/ml / sodium lactate 0.028 meq/ml injectable solution (2 sources) Start: End: lactated ringers infusion carvedilol 25 mg oral tablet (12 sources) alpha-Adrenergic Merlyn, beta-Adrenergic Merlyn Start: End: take 25 mg by mouth twice daily Carvedilol Discontinued 25 MG PO Twice daily May 05, 2020 1:00am November 07, 2023 11:12am Comment on above: Take 25 mg by mouth twice daily with meals. ceFAZolin (ANCEF) 1,000 mg in sterile water 10 mL IV syringe (1 source) Start: End: ceFAZolin (ANCEF) 1,000 mg in sterile water 10 mL IV syringe cephalexin 500 mg oral capsule (2 sources) Cephalosporin Antibacterial take 1 capsule by mouth twice daily cephALEXin (KEFLEX) 500 mg capsule Take 500 mg by mouth twice daily. 0 Active Comment on above: Take 500 mg by mouth twice daily. cetirizine hydrochloride 10 mg oral tablet (20 sources) Histamine-1 Receptor Antagonist Start: End: take 10 mg by mouth once daily at bedtime Cetirizine Discontinued 10 MG PO Daily at bedtime May 05, 2020 1:00am November 07, 2023 11:12am CETIRIZINE HCL ( ZYRTEC ORAL) Take by mouth. Prn 0 Active take 15 mg by mouth once daily C etirizine HCl (ZYRTEC ALLERGY PO) Take 15 mg by mouth daily 0 Active Comment on above: Take by mouth. Prn chlorhexidine gluconate 0.2 mg/ml in NS ophthalmic drops (2 sources) chlorhexidine gluconate 0.2 mg/ml in NS ophthalmic drops Use in the right eye every hour. 0 Active Comment on above: Use in the right eye every hour. cyclopentolate hydrochloride 5 mg/ml ophthalmic solution (2 sources) cyclopentolate (CYCLOGYL) 0.5 % ophthalmic solution Use 1 Drop in both eyes as directed. 0 Active Comment on above: Use 1 Drop in both e yes as directed. dapagliflozin 5 mg oral tablet (10 sources) Sodium-Glucose Cotransporter 2 Inhibitor Start: End: take 1 tablet by mouth once daily Dapagliflozin Propanediol (Farxiga) 5 mg tablet Discontinued 5 MG PO Daily May 05, 2020 1:00am November 07, 2023 11:12am 1 ml dexamethasone phosphate 10 mg/ml injection (1 source) Corticosteroid Start: End: dexamethasone (PF) (DECADRON) injection 10 mg 0.5 ml dulaglutide 1.5 mg/ml auto-injector (14 sources) GLP-1 Receptor Agonist Start: End: Dulaglutide (Trulicity) 0.75 mg/0.5 mL pen injector Discontinued 0.75 MG SUBCUT every week May 05, 2020 1:00am November 07, 2023 11:13am takes on Saturday dulaglutide 0.75 mg/0.5 mL pen injector Inject 0.75 mg under the skin every 7 days. On Mondays 0 Active Dulaglutide (Vinicius licity) 0.75 MG/0.5ML Solution Pen-injector injection as directed 0 Active erythromycin 0.005 mg/mg ophthalmic ointment (2 sources) Macrolide, Macrolide Antimicrobial erythromycin ophthalmic ointment Use 1 application in the right eye daily at bedtime. 0 Active Comment on above: Use 1 application in the right eye daily at bedtime. 2 ml fentaNYL 0.05 mg/ml injection (1 source) Opioid Agonist Start: 05-25-19 End: 05-25-19 fentaNYL (SUBLIMAZE) injection 50 mcg FLUoxetine 20 mg oral capsule (2 sources) Serotonin Reuptake Inhibitor take 1 capsule by mouth once daily FLUoxetine (PROZAC) 20 mg capsule Take 20 mg by mouth once daily. 0 Active Comment on above: Take 20 mg by mouth once daily. glimepiride 4 mg oral tablet (14 sources) Sulfonylurea Start: 12-12-19 End: 11-07-19 take 4 mg by mouth once daily Glimepiride Discontinued 4 MG PO Daily May 05, 2020 1:00am November 07, 2023 11:13am 1 ml ketorolac tromethamine 30 mg/ml cartridge (1 source) Nonsteroidal Anti-inflammatory Drug, Cyclooxygenase Inhibitor Start: 04-11-19 End: 04-11-19 ketorolac (TORADOL) injection 60 mg lansoprazole 30 mg delayed release oral capsule (2 sources) Proton Pump Inhibitor take 1 capsule by mouth once daily lansoprazole (PREVACID) 30 mg capsule Take 30 mg by mouth once daily. 0 Active Comment on above: Take 30 mg by mouth once daily. levoFLOXacin (10 sources) Quinolone Antimicrobial LEVOFLOXACIN ORAL Take by mouth. lavaza 0 Active levoFLOXacin Act deann Comment on above: Take by mouth. lavaz a 2 ml midazolam 1 mg/ml injection (1 source) Benzodiazepine Start: 2021 End: 2021 midazolam PF (VERSED) injection 1 mg 2 ml orphenadrine citrate 30 mg/ml injection (1 source) Muscle Relaxant Start: 2019 End: 2019 orphenadrine (NORFLEX) injection 60 mg PERFLUTREN LIPID MICROSPHERE 1.3 ML/8.7ML (1 source) Start: 2019 End: 2019 PERFLUTREN LIPID MICROSPHERE 1.3 ML/8.7ML prednisoLONE acetate 10 mg/ml ophthalmic suspension (2 sources) Corticosteroid Start: 2013 prednisoLONE acetate (PRED FORTE, ECONOPRED PLUS) 1 % ophthalmic suspension Use 1 Drop in the right eye once daily. 1 Bottle 0 12/29/2013 Active Comment on above: Use 1 Drop in the ri ght eye once daily. 72 hr scopolamine 0.0139 mg/hr transdermal system (1 source) Anticholinergic Start: 2021 End: 2021 scopolamine (TRANSDERM-SCOP) transdermal patch 1 patch simvastatin 10 mg oral tablet (20 sources) HMG-CoA Reductase Inhibitor Start: 2016 End: 2023 take 10 mg by mouth once daily at bedtime Simvastatin Discontinued 10 MG PO Daily at bedtime May 05, 2020 1:00am November 07, 2023 11:14am Comment on above: Take 1 tablet by [facility] once daily. tetrahydrozoline (2 sources) TETRAHYDROZOLINE HCL (EYE DROPS OPHTHALMIC) Use in eyes. voriconizole 1% q hour OD 0 Active Comment on above: Use in eyes. voricon izole 1% q hour OD tobramycin 3 mg/ml ophthalmic solution (2 sources) Aminoglycoside Antibacterial tobramycin (TOBREX) 0.3 % ophthalmic solution Use 1 Drop in the right eye as directed. 0 Active Comment on above: Use 1 Drop in the ri ght eye as directed. traMADol hydrochloride 50 mg oral tablet (3 sources) Opioid Agonist End: 2021 take 1 tablet by mouth every six hours as needed traMADol (ULTRAM) 50 mg tablet Take 50 mg by mouth every 6 hours as needed. 0 Active Comment on above: Take 50 mg by mouth every 6 hours as needed. valACYclovir 500 mg oral tablet (2 sources) Herpesvirus Nucleoside Analog DNA Polymerase Inhibitor, Herpes Simplex Virus Nucleoside Analog DNA Polymerase Inhibitor, Herpes Zoster Virus Nucleoside Analog DNA Polymerase Inhibitor Start: 2013 take 1 tablet by mouth once daily valACYclovir (VALTREX) 500 mg tablet Take 1 tablet by mouth once daily. 30 tablet 3 02/03/2014 Active Comment on above: Take 1 tablet by [facility] once daily. Vancomycin (2 sources) Glycopeptide Antibacterial VANCOMYCIN HCL (VANCOMYCIN 50 MG/ML) Use 1 Drop in the right eye as directed. 0 Active Comment on above: Use 1 Drop in the ri ght eye as directed. voriconazole 200 mg injection (4 sources) Azole Antifungal Start: 2013 take 1 tablet by mouth twice daily voriconazole (VFEND) 200 mg tablet Take 1 tablet by mouth twice daily. 60 tablet 2 11/26/2013 Active Start: 11-26-2013 take 1 drop(s) into the eye(s) every two hours voriconazole (VFEND) 1% Ophth Drops ([facility]) Use 1 Drop in the right eye every 2 hours. 1 Bottle 3 11/26/2013 Active Comment on above: Use 1 Drop in the ri ght eye every 2 hours. Take 1 tablet by [facility] th twice daily. Problems Active Problems Problem Classification Problem Date Documented Date Episodic/Chronic Allergic reactions (3 sources) Environmental allergy 05-24-2016 Episodic Anxiety disorders (17 sources) Anxiety disorder, unspecified; Translations: [Anxiety] Onset: 2 12-07-2022 Chronic Blindness and vision defects (1 source) Unspecified visual loss; Translations: [UNSPECIFIED VISUAL LOSS] Onset: 2 Chronic Calculus of urinary tract (20 sources) History of calculus of kidney; Translations: [Personal history of urinary calculi] Onset: 2 12-28-2020 Episodic Chronic kidney disease (20 sources) Chronic kidney disease stage 4; Translations: [Chronic kidney disease, stage 4 (severe)] Onset: 2 Resolved: 3 Chronic Complication of device; implant or graft (20 sources) Retained ureteric stent; Translations: [Infection and inflammatory reaction due to other internal joint prosthesis, subsequent encounter] Onset: 2 02-15-2020 Episodic Deficiency and other anemia (11 sources) Anemia of renal disease; Translations: [Anemia in chronic kidney disease] Chronic Deficiency and other anemia (4 sources) Anemia in chronic kidney disease; Translations: [ANEMIA IN CHRONIC KIDNEY DISEASE] Onset: 2 Resolved: 2 Chronic Diabetes mellitus with complications (20 sources) Type 2 diabetes mellitus in obese; Translations: [Type 2 diabetes mellitus with other specified complication] Onset: 1 Resolved: 2 12-28-2020 Chronic Diabetes mellitus without complication (20 sources) Type 2 diabetes mellitus without complication; Translations: [Diabetes mellitus] Onset: 0 02-02-2020 Chronic Disorders of lipid metabolism (18 sources) Pure hypercholesterolemia, unspecified; Translations: [Hyperlipidemia] Onset: 2 12-07-2022 Chronic Diverticulosis and diverticulitis (1 source) Diverticulosis of large intestine without perforation or abscess without bleeding; Translations: [DVRTCLOS LG INT NO PERF/ABSC W/O BL] Onset: 3 Chronic Esophageal disorders (17 sources) Gastro-esophageal reflux disease without esophagitis; Translations: [Gastroesophageal reflux disease] Onset: 2 12-07-2022 Chronic Essential hypertension (20 sources) Essential hypertension; Translations: [Hypertensive disorder] Onset: 0 02-02-2020 Chronic Fluid and electrolyte disorders (6 sources) Hyperkalemia; Translations: [HYPERKALEMIA] Onset: 2 Resolved: 2 Episodic Genitourinary symptoms and ill-defined conditions (15 sources) Dysuria; Translations: [Dysuria] Onset: 2 Episodic Hyperplasia of prostate (16 sources) Benign prostatic hyperplasia; Translations: [Benign prostatic hyperplasia without lower urinary tract symptoms] Onset: 3 12-07-2022 Chronic Hypertension with complications and secondary hypertension (20 sources) Chronic kidney disease due to hypertension; Translations: [Hypertensive chronic kidney disease with stage 1 through stage 4 chronic kidney disease, or unspecified chronic kidney disease] Onset: 2 Resolved: 2 Chronic Joint disorders and dislocations; trauma-related (2 sources) Chronic instability of knee, right knee; Translations: [Chronic instability of knee, right knee] Onset: 2 Chronic Osteoarthritis (1 source) Unspecified osteoarthritis, unspecified site; Translations: [UNSPECIFIED OSTEOARTHRITIS UNS SITE] Onset: 2 Chronic Other connective tissue disease (3 sources) Presence of unspecified artificial knee joint; Translations: [PRESENCE UNS ARTIFICIAL KNEE JOINT] Onset: 3 Chronic Other connective tissue disease (1 source) Presence of artificial knee joint, bilateral; Translations: [PRESENCE ARTIFICIAL KNEE JNT BILAT] Onset: 2 Chronic Other connective tissue disease (2 sources) Presence of right artificial knee joint; Translations: [Presence of right artificial knee joint] Onset: 2 Chronic Other diseases of kidney and ureters (16 sources) Secondary hyperparathyroidism; Translations: [Secondary hyperparathyroidism of renal origin] Onset: 3 Resolved: 3 11-21-2022 Chronic Other diseases of kidney and ureters (5 sources) Secondary hyperparathyroidism of renal origin; Translations: [Secondary hyperparathyroidism (of renal origin)] Onset: 2 Resolved: 2 Chronic Other diseases of kidney and ureters (2 sources) Disorder of kidney and/or ureter; Translations: [Other specified disorders of kidney and ureter] Onset: 3 Chronic Other diseases of kidney and ureters (3 sources) Renal mass 03-19-2022 Chronic Other diseases of kidney and ureters (4 sources) Other specified disorders of kidney and ureter; Translations: [OTHER SPEC DISORDERS KIDNEY URETER] Onset: 3 Chronic Other endocrine disorders (2 sources) Male hypogonadism 10-10-2022 Chronic Other gastrointestinal disorders (2 sources) History of sleeve gastrectomy; Translations: [Bariatric surgery status] Onset: 2 Episodic Other gastrointestinal disorders (5 sources) Altered bowel function; Translations: [Change in bowel habit] Onset: 3 Episodic Other gastrointestinal disorders (2 sources) Acute diarrhea 10-10-2022 Episodic Other hereditary and degenerative nervous system conditions (18 sources) Essential tremor; Translations: [Essential tremor] Onset: 3 10-10-2022 Chronic Other injuries and conditions due to external causes (1 source) Traumatic AND/OR non-traumatic injury; Translations: [Injury] Episodic Other nervous system disorders (3 sources) Other chronic pain; Translations: [OTHER CHRONIC PAIN] Onset: 2 Chronic Other nervous system disorders (2 sources) Neurogenic claudication 10-10-2022 Episodic Other nervous system disorders (3 sources) Other acute postprocedural pain; Translations: [Other acute postprocedural pain] Onset: 3 Episodic Other non-traumatic joint disorders (5 sources) Chronic pain following right total knee arthroplasty; Translations: [Pain in right knee] 12-28-2020 Episodic Other nutritional; endocrine; and metabolic disorders (19 sources) Morbid obesity; Translations: [Morbid (severe) obesity due to excess calories] Onset: 0 02-02-2020 Chronic Other nutritional; endocrine; and metabolic disorders (20 sources) Body mass index 40+ - severely obese; Translations: [Morbid (severe) obesity due to excess calories] Onset: 1 12-28-2020 Chronic Other nutritional; endocrine; and metabolic disorders (1 source) Obesity, unspecified; Translations: [OBESITY UNSPECIFIED] Onset: 2 Chronic Other nutritional; endocrine; and metabolic disorders (1 source) Body mass index (BMI) 45.0-49.9, adult; Translations: [BODY MASS INDEX BMI 45.0-49.9 ADULT] Onset: 2 Chronic Other nutritional; endocrine; and metabolic disorders (1 source) Morbid (severe) obesity due to excess calories; Translations: [MORBID SEVERE OBES D/T EXCESS CARLY] Onset: 2 Chronic Other nutritional; endocrine; and metabolic disorders (1 source) Body mass index (BMI) 40.0-44.9, adult; Translations: [BODY MASS INDEX BMI 40.0-44.9 ADULT] Onset: 2 Chronic Other nutritional; endocrine; and metabolic disorders (3 sources) Hyperuricemia without signs of inflammatory arthritis and tophaceous disease; Translations: [Other abnormal blood chemistry] Episodic Other nutritional; endocrine; and metabolic disorders (1 source) Hyperuricemia; Translations: [Hyperuricemia without signs of inflammatory arthritis and tophaceous disease] 11-06-2023 Episodic Other screening for suspected conditions (not mental disorders or infectious disease) (11 sources) Encounter for screening for malignant neoplasm of prostate; Translations: [Other specified abnormal findings of blood chemistry] Onset: 2 Episodic Pulmonary heart disease (2 sources) 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 Residual codes; unclassified (5 sources) Sleep apnea 05-25-2016 Chronic Comment on above: has cpap but hasnt w orn in 3 years because he is claustrophobic Residual codes; unclassified (1 source) Obstructive sleep apnea (adult) (pediatric); Translations: [OBSTRUCTIVE SLEEP APNEA] Onset: 2 Chronic Residual codes; unclassified (16 sources) Obstructive sleep apnea syndrome; Translations: [Obstructive sleep apnea (adult) (pediatric)] Onset: 2 12-07-2022 Chronic Residual codes; unclassified (1 source) Edema of lower extremity; Translations: [Fluid retention in legs] Episodic Residual codes; unclassified (1 source) Swelling - edema - symptom; Translations: [Edema] Onset: 0 02-02-2020 Episodic Residual codes; unclassified (3 sources) Insomnia 05-24-2016 Episodic Spondylosis; intervertebral disc disorders; other back problems (20 sources) Degeneration of lumbar intervertebral disc; Translations: [Other intervertebral disc degeneration, lumbar region] Onset: 2 10-10-2022 Chronic Unclassified (1 source) Infection and inflammatory reaction due to internal right knee prosthesis, initial encounter; Translations: [Infection and inflammatory reaction due to internal right knee prosthesis, initial encounter] Onset: 2 Unclassified (1 source) CHRN KIDNEY DISEASE STG 3 UNSP; Translations: [CHRN KIDNEY DISEASE STG 3 UNSP] Onset: 3 Unclassified (1 source) CONTACT W/AND (SUSP) EXPOS COVID-19; Translations: [CONTACT W/AND (SUSP) EXPOS COVID-19] Onset: 2 Unclassified (1 source) PERSONAL HISTORY OF COVID-19; Translations: [PERSONAL HISTORY OF COVID-19] Onset: 2 Unclassified (1 source) LOW BACK PAIN, UNSPECIFIED; Translations: [LOW BACK PAIN, UNSPECIFIED] Onset: 2 Unclassified (1 source) Patient encounter status 02-04-2023 Unclassified (1 source) New Patient Onset: 3 Past or Other Problems Problem Classification Problem Date Documented Da te Episodic/Chronic Abdominal pain (4 sources) Unspecified abdominal pain; Translations: [UNSPECIFIED ABDOMINAL PAIN] Onset: 12-21-2021 Episodic Cardiac dysrhythmias (5 sources) Tachycardia; Translations: [Tachycardia, unspecified] Onset: 01-25-2021 01-25-2021 Episodic Chronic kidney disease (12 sources) Chronic kidney disease; Translations: [Chronic kidney disease, stage III (moderate)] Deficiency and other anemia (4 sources) Anemia, unspecified; Translations: [ANEMIA UNSPECIFIED] Onset: 09-25-2021 Episodic Deficiency and other anemia (16 sources) Iron deficiency anemia; Translations: [Iron deficiency anemia, unspecified] Onset: 12-07-2022 12-07-2022 Episodic Inflammation; infection of eye (except that caused by tuberculosis or sexually transmitteddisease) (5 sources) Herpes simplex iridocyclitis; Translations: [Herpesviral iridocyclitis] Onset: 12-09-2013 Resolved: 12-07-2022 12-09-2013 Episodic Malaise and fatigue (4 sources) Other fatigue; Translations: [OTHER FATIGUE] Onset: 08-09-2021 Episodic Other acquired deformities (2 sources) Spondylolisthesis, lumbar region; Translations: [Lumbar adjacent segment disease with spondylolisthesis] Onset: 12-07-2022 Episodic Other aftercare (1 source) Other skilled nursing (current) drug therapy; Translations: [OTH CARE HOME CURRENT DRUG THERAPY] Onset: 06-28-2022 Episodic Other connective tissue disease (1 source) Arthrodesis status; Translations: [ARTHRODESIS STATUS] Onset: 08-22-2021 Episodic Other connective tissue disease (2 sources) Muscle weakness (generalized); Translations: [Muscle weakness (generalized)] Onset: 12-27-2021 Episodic Other connective tissue disease (16 sources) History of lumbar fusion; Translations: [Arthrodesis status] Onset: 12-07-2022 12-07-2022 Episodic Other eye disorders (5 sources) Corneal edema; Translations: [Unspecified corneal edema] Onset: 12-10-2013 Resolved: 12-07-2022 12-10-2013 Episodic Other gastrointestinal disorders (1 source) Bariatric surgery status; Translations: [BARIATRIC SURGERY STATUS] Onset: 08-22-2021 Episodic Other infections; including parasitic (3 sources) Personal history of other infectious and parasitic diseases; Translations: [PERSONAL HX OTH INF AND PARASITIC DZ] Onset: 03-16-2022 Episodic Other lower respiratory disease (5 sources) Dyspnea; Translations: [Dyspnea, unspecified] Onset: 01-25-2021 01-25-2021 Episodic Other lower respiratory disease (4 sources) Shortness of breath; Translations: [SHORTNESS OF BREATH] Onset: 10-31-2021 Episodic Other lower respiratory disease (1 source) Personal history of pneumonia (recurrent); Translations: [PERSONAL HX OF PNEUMONIA RECURRENT] Onset: 08-22-2021 Episodic Other non-traumatic joint disorders (2 sources) Pain in right knee; Translations: [Pain in right knee] Onset: 01-05-2022 Episodic Other non-traumatic joint disorders (2 sources) Other instability, right knee; Translations: [Other instability, right knee] Onset: 12-27-2021 Episodic Pulmonary heart disease (20 sources) H/O: pulmonary embolus; Translations: [Personal history of pulmonary embolism] Onset: 08-22-2021 12-28-2020 Episodic Residual codes; unclassified (1 source) Pain in buttock Episodic Residual codes; unclassified (3 sources) Other specified postprocedural states; Translations: [OTH SPECIFIED POSTPROCEDURAL STATES] Onset: 03-20-2022 Episodic Residual codes; unclassified (2 sources) Pain; Translations: [Pain] Onset: 12-20-2021 Episodic Skin and subcutaneous tissue infections (1 source) Cellulitis, unspecified; Translations: [CELLULITIS UNSPECIFIED] Onset: 09-28-2021 Episodic Spondylosis; intervertebral disc disorders; other back problems (20 sources) Acute back pain with sciatica; Translations: [Chronic low back pain] Onset: 08-17-2021 12-28-2020 Episodic Results Test Name Value Interpretation Reference Range Facility Erythrocyte distribution wid th Auto (RBC) [Ratio]on 10-29-2023 Erythrocyte distribution width (RBC) [Ratio] 11.5 % 11.0-15.0 [facility] Estimated glomerular filtrat ion rate (GFR) non- Americanon 10-29-2023 GFR/1.73 sq M.predicted among non-blacks MDRD (S/P/Bld) [Vol rate/Area] 51 mL/min/{1.73_m2} Low >=60 [facility] Hematocrit Auto (Bld) [Volum e fraction]on 10-29-2023 Hematocrit (Bld) [Volume fraction] 47.7 % 42.0-54.0 [facility] Hemoglobin [Mass/volume] in Bloodon 10-29-2023 Hemoglobin (Bld) [Mass/Vol] 16.8 g/dL 14.0-18.0 [facility] Laboratory - Chemistry and C hemistry - challengeon 10-29-2023 Albumin [Mass/Vol] 3.7 g/dL 3.4-5.0 [facility] Calcium [Mass/Vol] 9.0 mg/dL 8.5-10.1 [facility] Chloride [Moles/Vol] 103 mmol/L 98-107 [facility] CO2 [Moles/Vol] 26.8 mmol/L 21.0-32.0 [facility] Creatinine [Mass/Vol] 1.41 mg/dL High 0.70-1.30 [facility] GFR/1.73 sq M.predicted MDRD (S/P/Bld) [Vol rate/Area] mL/min/{1.73_m2} >=60 [facility] Glucose [Mass/Vol] 167 mg/dL High 74-106 [facility] Magnesium [Mass/Vol] 1.9 mg/dL 1.8-2.4 [facility] Potassium [Moles/Vol] 3.9 mmol/L 3.5-5.1 [facility] Sodium [Moles/Vol] 141 mmol/L 136-145 [facility] Urate [Mass/Vol] 7.9 mg/dL High 3.5-7.2 [facility] Urea nitrogen [Mass/Vol] 26.0 mg/dL High 7.0-18.0 [facility] Urea nitrogen/Creatinine [Mass ratio] 18.4 mg/mg [facility] Bilirubin Ql (U) Negative NEGATIVE [facility] Glucose (U) [Mass/Vol] Negative NEGATIVE [facility] Ketones Ql (U) Negative NEGATIVE [facility] pH (U) 6.0 [pH] 5.0-9.0 [facility] Specific gravity (U) [Rel density] 1.015 1.005-1.025 [facility] Urobilinogen Qn (U) 0.2 {Dahiana'U}/dL 0.2-1.0 [facility] Laboratory - Specimen inform ationon 10-29-2023 Appearance (U) CLEAR CLEAR [facility] Color (U) LT. YELLOW YELLOW [facility] Laboratory - Urinalysison Hyaline casts LM Ql (Urine sed) RARE [facility] Leukocyte esterase Test strip Ql (U) Negative NEGATIVE [facility] Mucus Ql (Urine sed) NONE SEEN NONE SEEN [facility] Nitrite Ql (U) Negative NEGATIVE [facility] Protein Ql (U) Negative NEG/TRACE [facility] Leukocytes [#/volume] correc romaine for nucleated erythrocytes in Blood by Automated counon 10-29-2023 WBC corrected for nucl RBC Auto (Bld) [#/Vol] 6.9 10 3/uL 4.0-11.0 [facility] MCH Auto (RBC) [Entitic mass ]on 10-29-2023 MCH (RBC) [Entitic mass] 32.2 pg 25.9-34.0 [facility] MCHC Auto (RBC) [Mass/Vol]on 10-29-2023 MCHC (RBC) [Mass/Vol] 35.2 g/dL 29.9-35.2 [facility] MCV Auto (RBC) [Entitic vol] on 10-29-2023 MCV (RBC) [Entitic vol] 91.6 fL 80.0-94.0 [facility] No Panel Informationon 10-28 25-Hydroxy Vitamin D Total 40.8 ng/mL [facility] Comment on above: <20 ng/mL Vit D defi cient20-<30 ng/mL Vit D doexymgrzjth21-613 ng/mL Vit D sufficient>100 ng/mL Potential Toxicity Parathyroid Hormone (Intact) 91 pg/mL Abnormal 15-65 [facility] Comment on above: Performed at: [facility] [place] [id number] Director: Logan Martinez PhD, Phone: [phone] Phosphorus Level 2.3 mg/dL Low 2.6-4.7 [facility] Urine Bacteria NONE SEEN #/HPF NONE SEEN [facility] Urine Occult Blood Negative NEGATIVE [facility] Urine Other Casts SEEN #/LPF Abnormal NONE SEEN [facility] Urine Random Creatinine 15.18 mg/dL Low 20.00-300.00 [facility] Urine Random Total Protein <6.0 mg/dL <=11.9 [facility] Urine RBC NONE SEEN #/HPF 0-2 [facility] Urine Squamous Epithelial Cells FEW #/LPF Abnormal NONE/RARE [facility] Urine WBC NONE SEEN #/HPF NONE SEEN [facility] Platelet mean volume Auto (B ld) [Entitic vol]on 10-29-2023 Platelet mean volume (Bld) [Entitic vol] 8.9 fL Low 9.5-13.5 [facility] Platelets Auto (Bld) [#/Vol] on 10-29-2023 Platelets (Bld) [#/Vol] 236 10 3/uL 150-450 [facility] RBC Auto (Bld) [#/Vol]on RBC (Bld) [#/Vol] 5.21 10 6/uL 4.70-6.10 [facility] Serum or plasma anion gap de terminationon 09-03-2024 Anion gap [Moles/Vol] 15.1 mmol/L [facility] CNPAlejandra 10-04-2023 CNPN Telephone (NEADFV) SUKHDEEP SIMENTAL ([id number]) 1965 M Date Time Provider Department 10/04/23 EDD MATHEW NEADFV During your visit today, we recorded the following information about you: Arianna Little 10/04/2023 10:42 AM Signed [place] report XR Lumbar Spine 2-3v scanned to Epic Allergies As of Date: 10/04/2023 (No Known Allergies) Date Reviewed: 03/25/2023 Reviewed by: Mundo Ness PCNA - Fully Assessed Reason for Visit: Results [95] Prescriptions as of 10/04/2023 - naloxone 4 mg/actuation nasal spray (NARCAN) Use 1 spray in one nostril as needed for overdose. May repeat every 2 to 3 min in alternating nostrils until medical assistance is available - metoclopramide HCl (REGLAN) 10 mg tablet Take 10 mg by mouth as needed. - FEROSUL 325 mg (65 mg iron) tablet Take 1 tablet by mouth every 12 (twelve) hours. - hydrOXYzine HCl (ATARAX) 25 mg tablet TAKE 1 TABLET BY MOUTH FOUR TIMES DAILY NEEDED MUST LAST 30 DAYS - omeprazole (PRILOSEC) 20 mg capsule Take 1 capsule by mouth twice daily. - doxazosin (CARDURA) 4 mg tablet Take 4 mg by mouth. - irbesartan (AVAPRO) 300 mg tablet 1/2 tablet Orally Once a day for 60 days - pioglitazone (ACTOS) 30 mg tablet - bumetanide (BUMEX) 1 mg tablet Take 1 tablet by mouth once daily. - tamsulosin (FLOMAX) 0.4 mg Take 1 capsule by mouth once daily. - tizanidine HCl (ZANAFLEX ORAL) daily at bedtime. - traZODone (DESYREL) 150 mg tablet - simvastatin (ZOCOR) 10 mg tablet Take 1 tablet by mouth once daily. 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] 12/09/2013 12/07/2022 Corneal edema, unspecified [H18.20] 12/10/2013 12/07/2022 Anxiety [F41.9] 12/27/2021 Essential hypertension [I10] 02/02/2020 Essential tremor [G25.0] 11/21/2022 Gastroesophageal reflux disease [K21.9] 12/27/2021 History of pulmonary embolism [Z86.711] 01/05/2022 Morbid obesity (HCC) [E66.01] 12/27/2021 ELIDA (obstructive sleep apnea) [G47.33] 12/27/2021 Secondary hyperparathyroidism (HCC) [N25.81] 11/21/2022 11/21/2022 Type 2 diabetes mellitus without complications *02/02/2020 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 Status post lumbar spinal fusion [Z98.1] 12/07/2022 Stage 3 chronic kidney disease (HCC) [N18.30] 12/07/2022 CIRO (iron deficiency anemia) [D50.9] 12/07/2022 HLD (hyperlipidemia) [E78.5] 12/07/2022 BPH (benign prostatic hyperplasia) [N40.0] 12/07/2022 Obesity, Class III, BMI >= 40 [E66.01] 12/08/2022 Encounter Status:Closed by JUAN PABLO NOVA on 10/04/23 [facility] [place] 07-30-2023 OLGAN Telephone (NEADFV) SUKHDEEP SIMENTAL ([id number]) 1965 M Date Time Provider Department 07/30/23 LOUARLEYMARIUMEDD NEADFV During your visit today, we recorded the following information about you: Arianna Little 07/30/2023 11:51 AM Signed Pt phoned regarding upcoming visit 10/06 work[employer]iance 11 comp appt. Pt unable to manage virtual visit asking for telephone visit. Pt asking how far in advance to do X-Ray. Pt will have X-Ray done locally at [place]. Please call and advise Pt phone # [phone] Emily Rondon 07/30/2023 1:07 PM Signed Have sent XR Lumbar order to [place] fax # [phone] as requested from patient. Riddhi Goss APRN.OLGA 07/30/2023 3:25 PM Signed Called Sukhdeep, no answer, left VM Allergies As of Date: 07/30/2023 (No Known Allergies) Date Reviewed: 03/25/2023 Reviewed by: Mundo Ness PCNA - Fully Assessed Reason for Visit: Appointment [186] Orders [681] Prescriptions as of 07/30/2023 - naloxone 4 mg/actuation nasal spray (NARCAN) Use 1 spray in one nostril as needed for overdose. May repeat every 2 to 3 min in alternating nostrils until medical assistance is available - metoclopramide HCl (REGLAN) 10 mg tablet Take 10 mg by mouth as needed. - FEROSUL 325 mg (65 mg iron) tablet Take 1 tablet by mouth every 12 (twelve) hours. - hydrOXYzine HCl (ATARAX) 25 mg tablet TAKE 1 TABLET BY MOUTH FOUR TIMES DAILY NEEDED MUST LAST 30 DAYS - omeprazole (PRILOSEC) 20 mg capsule Take 1 capsule by mouth twice daily. - doxazosin (CARDURA) 4 mg tablet Take 4 mg by mouth. - irbesartan (AVAPRO) 300 mg tablet 1/2 tablet Orally Once a day for 60 days - pioglitazone (ACTOS) 30 mg tablet - bumetanide (BUMEX) 1 mg tablet Take 1 tablet by mouth once daily. - tamsulosin (FLOMAX) 0.4 mg Take 1 capsule by mouth once daily. - tizanidine HCl (ZANAFLEX ORAL) daily at bedtime. - traZODone (DESYREL) 150 mg tablet - simvastatin (ZOCOR) 10 mg tablet Take 1 tablet by mouth once daily. 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] 12/09/2013 12/07/2022 Corneal edema, unspecified [H18.20] 12/10/2013 12/07/2022 Anxiety [F41.9] 12/27/2021 Essential hypertension [I10] 02/02/2020 Essential tremor [G25.0] 11/21/2022 Gastroesophageal reflux disease [K21.9] 12/27/2021 History of pulmonary embolism [Z86.711] 01/05/2022 Morbid obesity (HCC) [E66.01] 12/27/2021 ELIDA (obstructive sleep apnea) [G47.33] 12/27/2021 Secondary hyperparathyroidism (HCC) [N25.81] 11/21/2022 11/21/2022 Type 2 diabetes mellitus without complications *02/02/2020 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 Status post lumbar spinal fusion [Z98.1] 12/07/2022 Stage 3 chronic kidney disease (HCC) [N18.30] 12/07/2022 CIRO (iron deficiency anemia) [D50.9] 12/07/2022 HLD (hyperlipidemia) [E78.5] 12/07/2022 BPH (benign prostatic hyperplasia) [N40.0] 12/07/2022 Obesity, Class III, BMI >= 40 [E66.01] 12/08/2022 Encounter Status:Closed by RIDDHI GOSS on 07/30/23 [facility] 07-23-2023 HARIKA Telephone (NIQ) SIMENTAL,SUKHDEEP ([id number]) 1965 M Date Time Provider Department 07/23/23 EDD MATHEW During your visit today, we recorded the following information about you: Scherer Brenda Isabel 07/23/2023 9:38 AM Signed [facility], in epic for review. Juan Pablo Nova RN 07/23/2023 10:08 AM Signed Printed for review. Juan Pablo Nova RN 07/26/2023 10:57 AM Signed Office note faxed. Faxed verification received. Allergies As of Date: 07/23/2023 (No Known Allergies) Date Reviewed: 03/25/2023 Reviewed by: Mundo Ness PCNA - Fully Assessed Prescriptions as of 07/26/2023 - naloxone 4 mg/actuation nasal spray (NARCAN) Use 1 spray in one nostril as needed for overdose. May repeat every 2 to 3 min in alternating nostrils until medical assistance is available - metoclopramide HCl (REGLAN) 10 mg tablet Take 10 mg by mouth as needed. - FEROSUL 325 mg (65 mg iron) tablet Take 1 tablet by mouth every 12 (twelve) hours. - hydrOXYzine HCl (ATARAX) 25 mg tablet TAKE 1 TABLET BY MOUTH FOUR TIMES DAILY NEEDED MUST LAST 30 DAYS - omeprazole (PRILOSEC) 20 mg capsule Take 1 capsule by mouth twice daily. - doxazosin (CARDURA) 4 mg tablet Take 4 mg by mouth. - irbesartan (AVAPRO) 300 mg tablet 1/2 tablet Orally Once a day for 60 days - pioglitazone (ACTOS) 30 mg tablet - bumetanide (BUMEX) 1 mg tablet Take 1 tablet by mouth once daily. - tamsulosin (FLOMAX) 0.4 mg Take 1 capsule by mouth once daily. - tizanidine HCl (ZANAFLEX ORAL) daily at bedtime. - traZODone (DESYREL) 150 mg tablet - simvastatin (ZOCOR) 10 mg tablet Take 1 tablet by mouth once daily. 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] 12/09/2013 12/07/2022 Corneal edema, unspecified [H18.20] 12/10/2013 12/07/2022 Anxiety [F41.9] 12/27/2021 Essential hypertension [I10] 02/02/2020 Essential tremor [G25.0] 11/21/2022 Gastroesophageal reflux disease [K21.9] 12/27/2021 History of pulmonary embolism [Z86.711] 01/05/2022 Morbid obesity (HCC) [E66.01] 12/27/2021 ELIDA (obstructive sleep apnea) [G47.33] 12/27/2021 Secondary hyperparathyroidism (HCC) [N25.81] 11/21/2022 11/21/2022 Type 2 diabetes mellitus without complications *02/02/2020 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 Status post lumbar spinal fusion [Z98.1] 12/07/2022 Stage 3 chronic kidney disease (HCC) [N18.30] 12/07/2022 CIRO (iron deficiency anemia) [D50.9] 12/07/2022 HLD (hyperlipidemia) [E78.5] 12/07/2022 BPH (benign prostatic hyperplasia) [N40.0] 12/07/2022 Obesity, Class III, BMI >= 40 [E66.01] 12/08/2022 Encounter Status:Closed by JUAN PABLO NOVA on 07/26/23 [facility] [place] 04-16-2023 HARIKA Telephone (NIQ) SUKHDEEP SIMENTAL ([id number]) 1965 M Date Time Provider Department 04/16/23 EDD MATHEW During your visit today, we recorded the following information about you: Moriah Ferguson 04/16/2023 1:27 PM Signed Received imaging disc by mail from [facility]. Disc contains CT Lumbar spine done on 04/03/23. Will place in nurse folder in [address]. Allergies As of Date: 04/16/2023 (No Known Allergies) Date Reviewed: 03/25/2023 Reviewed by: Mundo Ness PCNA - Fully Assessed Reason for Visit: Imaging Disc [Other] Prescriptions as of 06/06/2023 - naloxone 4 mg/actuation nasal spray (NARCAN) Use 1 spray in one nostril as needed for overdose. May repeat every 2 to 3 min in alternating nostrils until medical assistance is available - metoclopramide HCl (REGLAN) 10 mg tablet Take 10 mg by mouth as needed. - FEROSUL 325 mg (65 mg iron) tablet Take 1 tablet by mouth every 12 (twelve) hours. - hydrOXYzine HCl (ATARAX) 25 mg tablet TAKE 1 TABLET BY MOUTH FOUR TIMES DAILY NEEDED MUST LAST 30 DAYS - omeprazole (PRILOSEC) 20 mg capsule Take 1 capsule by mouth twice daily. - doxazosin (CARDURA) 4 mg tablet Take 4 mg by mouth. - irbesartan (AVAPRO) 300 mg tablet 1/2 tablet Orally Once a day for 60 days - pioglitazone (ACTOS) 30 mg tablet - bumetanide (BUMEX) 1 mg tablet Take 1 tablet by mouth once daily. - tamsulosin (FLOMAX) 0.4 mg Take 1 capsule by mouth once daily. - tizanidine HCl (ZANAFLEX ORAL) daily at bedtime. - traZODone (DESYREL) 150 mg tablet - simvastatin (ZOCOR) 10 mg tablet Take 1 tablet by mouth once daily. 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] 12/09/2013 12/07/2022 Corneal edema, unspecified [H18.20] 12/10/2013 12/07/2022 Anxiety [F41.9] 12/27/2021 Essential hypertension [I10] 02/02/2020 Essential tremor [G25.0] 11/21/2022 Gastroesophageal reflux disease [K21.9] 12/27/2021 History of pulmonary embolism [Z86.711] 01/05/2022 Morbid obesity (HCC) [E66.01] 12/27/2021 ELIDA (obstructive sleep apnea) [G47.33] 12/27/2021 Secondary hyperparathyroidism (HCC) [N25.81] 11/21/2022 11/21/2022 Type 2 diabetes mellitus without complications *02/02/2020 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 Status post lumbar spinal fusion [Z98.1] 12/07/2022 Stage 3 chronic kidney disease (HCC) [N18.30] 12/07/2022 CIRO (iron deficiency anemia) [D50.9] 12/07/2022 HLD (hyperlipidemia) [E78.5] 12/07/2022 BPH (benign prostatic hyperplasia) [N40.0] 12/07/2022 Obesity, Class III, BMI >= 40 [E66.01] 12/08/2022 Encounter Status:Closed by MORIAH FERGUSON on 06/06/23 [facility] 04-10-2023 CNPN Telephone (NIQ) SUKHDEEP SIMENTAL ([id number]) 1965 M Date Time Provider Department 04/10/23 EDD MATHEW [facility] During your visit today, we recorded the following information about you: Moriah Ferguson 04/10/2023 2:11 PM Signed Received PT Certification from [facility] Scanned to chart for provider signature. Juan Pablo Nova RN 04/18/2023 8:43 AM Signed Printed for review and signature. Juan Pablo Nova RN 04/18/2023 9:25 AM Signed Signed form faxed to number requested. Faxed verification received. Allergies As of Date: 04/10/2023 (No Known Allergies) Date Reviewed: 03/25/2023 Reviewed by: Mundo Ness PCNA - Fully Assessed Reason for Visit: PT Certification [Other] Prescriptions as of 04/18/2023 - naloxone 4 mg/actuation nasal spray (NARCAN) Use 1 spray in one nostril as needed for overdose. May repeat every 2 to 3 min in alternating nostrils until medical assistance is available - metoclopramide HCl (REGLAN) 10 mg tablet Take 10 mg by mouth as needed. - FEROSUL 325 mg (65 mg iron) tablet Take 1 tablet by mouth every 12 (twelve) hours. - hydrOXYzine HCl (ATARAX) 25 mg tablet TAKE 1 TABLET BY MOUTH FOUR TIMES DAILY NEEDED MUST LAST 30 DAYS - omeprazole (PRILOSEC) 20 mg capsule Take 1 capsule by mouth twice daily. - doxazosin (CARDURA) 4 mg tablet Take 4 mg by mouth. - irbesartan (AVAPRO) 300 mg tablet 1/2 tablet Orally Once a day for 60 days - pioglitazone (ACTOS) 30 mg tablet - bumetanide (BUMEX) 1 mg tablet Take 1 tablet by mouth once daily. - tamsulosin (FLOMAX) 0.4 mg Take 1 capsule by mouth once daily. - tizanidine HCl (ZANAFLEX ORAL) daily at bedtime. - traZODone (DESYREL) 150 mg tablet - simvastatin (ZOCOR) 10 mg tablet Take 1 tablet by mouth once daily. 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] 12/09/2013 12/07/2022 Corneal edema, unspecified [H18.20] 12/10/2013 12/07/2022 Anxiety [F41.9] 12/27/2021 Essential hypertension [I10] 02/02/2020 Essential tremor [G25.0] 11/21/2022 Gastroesophageal reflux disease [K21.9] 12/27/2021 History of pulmonary embolism [Z86.711] 01/05/2022 Morbid obesity (HCC) [E66.01] 12/27/2021 ELIDA (obstructive sleep apnea) [G47.33] 12/27/2021 Secondary hyperparathyroidism (HCC) [N25.81] 11/21/2022 11/21/2022 Type 2 diabetes mellitus without complications *02/02/2020 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 Status post lumbar spinal fusion [Z98.1] 12/07/2022 Stage 3 chronic kidney disease (HCC) [N18.30] 12/07/2022 CIRO (iron deficiency anemia) [D50.9] 12/07/2022 HLD (hyperlipidemia) [E78.5] 12/07/2022 BPH (benign prostatic hyperplasia) [N40.0] 12/07/2022 Obesity, Class III, BMI >= 40 [E66.01] 12/08/2022 Encounter Status:Closed by JUAN PABLO NOVA on 04/18/23 [facility] CNPAlejandra 04-09-2023 CNPN Telephone (NIQ) SUKHDEEP SIMENTAL ([id number]) 1965 M Date Time Provider Department 04/09/23 EDD MATHEW During your visit today, we recorded the following information about you: Brenda Alex 04/09/2023 10:[address] Lumbar Spine Report from [facility], in epic to review. Brittany Carr PA-C 04/09/2023 12:24 PM Signed Will require images to be uploaded to assess for bony fusion at previous surgical site and adjacent segment disease. Robson Lazo RN 04/09/2023 12:34 PM Signed Called AND spoke with Sukhdeep Asked him to obtain imaging disc AND send to our office. Allergies As of Date: 04/09/2023 (No Known Allergies) Date Reviewed: 03/25/2023 Reviewed by: Mundo Ness PCNA - Fully Assessed Prescriptions as of 04/09/2023 - naloxone 4 mg/actuation nasal spray (NARCAN) Use 1 spray in one nostril as needed for overdose. May repeat every 2 to 3 min in alternating nostrils until medical assistance is available - metoclopramide HCl (REGLAN) 10 mg tablet Take 10 mg by mouth as needed. - FEROSUL 325 mg (65 mg iron) tablet Take 1 tablet by mouth every 12 (twelve) hours. - hydrOXYzine HCl (ATARAX) 25 mg tablet TAKE 1 TABLET BY MOUTH FOUR TIMES DAILY NEEDED MUST LAST 30 DAYS - omeprazole (PRILOSEC) 20 mg capsule Take 1 capsule by mouth twice daily. - doxazosin (CARDURA) 4 mg tablet Take 4 mg by mouth. - irbesartan (AVAPRO) 300 mg tablet 1/2 tablet Orally Once a day for 60 days - pioglitazone (ACTOS) 30 mg tablet - bumetanide (BUMEX) 1 mg tablet Take 1 tablet by mouth once daily. - tamsulosin (FLOMAX) 0.4 mg Take 1 capsule by mouth once daily. - tizanidine HCl (ZANAFLEX ORAL) daily at bedtime. - traZODone (DESYREL) 150 mg tablet - simvastatin (ZOCOR) 10 mg tablet Take 1 tablet by mouth once daily. 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] 12/09/2013 12/07/2022 Corneal edema, unspecified [H18.20] 12/10/2013 12/07/2022 Anxiety [F41.9] 12/27/2021 Essential hypertension [I10] 02/02/2020 Essential tremor [G25.0] 11/21/2022 Gastroesophageal reflux disease [K21.9] 12/27/2021 History of pulmonary embolism [Z86.711] 01/05/2022 Morbid obesity (HCC) [E66.01] 12/27/2021 ELIDA (obstructive sleep apnea) [G47.33] 12/27/2021 Secondary hyperparathyroidism (HCC) [N25.81] 11/21/2022 11/21/2022 Type 2 diabetes mellitus without complications *02/02/2020 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 Status post lumbar spinal fusion [Z98.1] 12/07/2022 Stage 3 chronic kidney disease (HCC) [N18.30] 12/07/2022 CIRO (iron deficiency anemia) [D50.9] 12/07/2022 HLD (hyperlipidemia) [E78.5] 12/07/2022 BPH (benign prostatic hyperplasia) [N40.0] 12/07/2022 Obesity, Class III, BMI >= 40 [E66.01] 12/08/2022 Encounter Status:Closed by ROBSON LAZO on 04/09/23 [facility] CNPNon 03-26-2023 CNPN Telephone (NEADFV) SUKHDEEP SIMENTAL ([id number]) 1965 M Date Time Provider Department 03/26/23 EDD MATHEW NEWALLYFV During your visit today, we recorded the following information about you: Emily Rondon 03/26/2023 10:20 AM Signed Patient called regarding his visit yesterday, he was given CT order and is requesting a C9 to be sent to his WC. Juan Pablo Nova RN 03/26/2023 10:39 AM Signed C9 created. Awaiting signature. Juan Pablo Nova RN 03/27/2023 12:44 PM Signed Signed C9 faxed. Faxed verification received. Allergies As of Date: 03/26/2023 (No Known Allergies) Date Reviewed: 03/25/2023 Reviewed by: Mundo Ness PCNA - Fully Assessed Reason for Visit: Orders [681] Patient Question [0507] Prescriptions as of 03/27/2023 - naloxone 4 mg/actuation nasal spray (NARCAN) Use 1 spray in one nostril as needed for overdose. May repeat every 2 to 3 min in alternating nostrils until medical assistance is available - metoclopramide HCl (REGLAN) 10 mg tablet Take 10 mg by mouth as needed. - FEROSUL 325 mg (65 mg iron) tablet Take 1 tablet by mouth every 12 (twelve) hours. - hydrOXYzine HCl (ATARAX) 25 mg tablet TAKE 1 TABLET BY MOUTH FOUR TIMES DAILY NEEDED MUST LAST 30 DAYS - omeprazole (PRILOSEC) 20 mg capsule Take 1 capsule by mouth twice daily. - doxazosin (CARDURA) 4 mg tablet Take 4 mg by mouth. - irbesartan (AVAPRO) 300 mg tablet 1/2 tablet Orally Once a day for 60 days - pioglitazone (ACTOS) 30 mg tablet - bumetanide (BUMEX) 1 mg tablet Take 1 tablet by mouth once daily. - tamsulosin (FLOMAX) 0.4 mg Take 1 capsule by mouth once daily. - tizanidine HCl (ZANAFLEX ORAL) daily at bedtime. - traZODone (DESYREL) 150 mg tablet - simvastatin (ZOCOR) 10 mg tablet Take 1 tablet by mouth once daily. 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] 12/09/2013 12/07/2022 Corneal edema, unspecified [H18.20] 12/10/2013 12/07/2022 Anxiety [F41.9] 12/27/2021 Essential hypertension [I10] 02/02/2020 Essential tremor [G25.0] 11/21/2022 Gastroesophageal reflux disease [K21.9] 12/27/2021 History of pulmonary embolism [Z86.711] 01/05/2022 Morbid obesity (HCC) [E66.01] 12/27/2021 ELIDA (obstructive sleep apnea) [G47.33] 12/27/2021 Secondary hyperparathyroidism (HCC) [N25.81] 11/21/2022 11/21/2022 Type 2 diabetes mellitus without complications *02/02/2020 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 Status post lumbar spinal fusion [Z98.1] 12/07/2022 Stage 3 chronic kidney disease (HCC) [N18.30] 12/07/2022 CIRO (iron deficiency anemia) [D50.9] 12/07/2022 HLD (hyperlipidemia) [E78.5] 12/07/2022 BPH (benign prostatic hyperplasia) [N40.0] 12/07/2022 Obesity, Class III, BMI >= 40 [E66.01] 12/08/2022 Encounter Status:Closed by JUAN PABLO NOVA on 03/27/23 [facility] ALLIED HEALTHon 03-25-2023 ALLIED HEALTH HNO ID: [id number] Author: YASH MORRISON RT(R) Service: ? Author Type: Technologist Type: Allied Health Filed: 03/25/2023 15:41 Note Text: Radiology Service Progress Note PATIENT NAME: Sukhdeep Simental DATE OF SERVICE: March 25, 2023 TIME: 3:40 PM PATIENT IDENTITY VERIFICATION COMPLETED USING TWO (2) IDENTIFIERS: Name and Date of confirmed by patient verbally and Name and Date of confirmed by identification band. FALL SCREENING: Has the patient had 2 falls in the last year or 1 fall with injury or currently using an Ambulatory Assistive Device (Walker, Cane, Wheelchair, Crutches, etc.)? Yes, Patient High Risk for Falls What interventions were put in place to prevent falls during this visit? Yellow Falls Risk Wristband Applied PATIENT GENDER DATA: Male PATIENT RELEVANT IMPLANT DATA REVIEWED: Not Applicable PATIENT PRESENTS WITH AN IMPLANTABLE OR ATTACHED LAYUP WORKER: No RADIOLOGY DEPARTMENT: General X-ray: Exam(s) Completed: Spine X-Ray(s): Lumbar AP / LAT PERIPHERAL IV DATA: Not applicable SIGNED BY: RT Carlos(R) March 25, 2023 3:40 PM [facility] CNOVon 03-25-2023 CNOV Office Visit (NSFRVW ) SIMENTALSUKHDEEP Gusman ([id number]) 1965 M Date Time Provider Department 03/25/23 2:20 PM EDD MATHEW NSFRVW During your visit today, we recorded the following information about you: Pulse Blood pressure 96/minute 153/94 Edd Mathew MD 03/26/2023 6:46 AM Signed SPINE SURGERY FOLLOW UP This is an in-person visit. SERVICE DATE: 03/25/2023 SURGERY DATE: 12/07/2022 L2-S1 revision instrumented fusion; L2/3, L3/4 TLIF Sukhdeep Simental is seen for 3 month post operative follow up. He continues to experience low back pain into the buttock. Radiation of pain down leg has resolved during the day but returns at night. Reports difficulty sleeping due to pain despite taking muscle relaxants (Zanaflex) and sleep aides. Has discomfort with both standing and sitting, states PT was suspended due to lack of efficacy. Ambulates with a walker due to weakness and imbalance. States skin on thigh has been sensitive to touch, did not occur prior to surgery. Does not note significant worsening or improvement since surgery. PAIN EVALUATION 03/25/2023 1411 Pain Level: 8 Pain Location: Back-Lower Description: Sharp Frequency: Continuous Pain Radiation: Low back into buttock and leg Aggravating Factors: Standing, Sitting ANTIPLATELET OR ANTICOAGULATION STATUS: No Patient Entered Questionnaires PROMIS Score Percentiles Percentiles provide an indication of how the patient's score ranks in relation to the general population. Higher percentile rankings indicate better function/quality of life. 50th percentile is the average of the general population and indicates half of respondents had a worse score. Depression Screening: PHQ-9 Self-Harm (Item 9) response options: 0 Not at all 1 Several days 2 More than half the days 3 Nearly every day PHQ-9 Levels: 0-4 No to mild depression 5-9 Mild depression 10-14 Moderate depression 15-19 Moderately severe depression 20-27 Severe depression PHYSICAL EXAM: BP 153/94 Pulse 96 SpO2 98% Oriented x3 PERRL FS Motor: UE D 5/5, B 5/5, T 5/5, G 5/5, HI 5/5 LE HF 5/5, KE 5/5, DF 5/5, PF 5/5, EHL 5/5 except R HF 2/5 Incision C/D/I DATA REVIEW No additional images reviewed today ASSESSMENT/PLAN (M51.36, M43.16) Lumbar adjacent segment disease with spondylolisthesis (primary encounter diagnosis) (M48.062) Spinal stenosis of lumbar region with neurogenic claudication Sukhdeep Simental has a condition that requires further workup. 1. Imaging: Lumbar X-Ray and Lumbar CT Without Contrast Symptoms of neuro deficit or red flag symptoms listed in HPI 2. Follow up: Following above Imaging Ordered: Lumbar X-Ray and Lumbar CT The documentation for this note was completed by Hannah Ochoa, AA Student acting as scribe for Edd Mathew MD. March 25, 2023 2:45 PM. SIGNATURE: Edd Mathew MD PATIENT NAME: Sukhdeep Simental DATE: March 25, 2023 TIME: 2:20 PM PAGER: Referring Provider: SELF [200] Allergies As of Date: 03/25/2023 (No Known Allergies) Date Reviewed: 03/25/2023 Reviewed by: Mundo Ness PCNA - Fully Assessed Reason for Visit: Follow Up [171] Cmt: Still having difficulty sleeping due to pain Primary Visit Diagnosis:Lumbar adjacent segment disease with spondylolisthesis [M51.36, M43.16] Other Visit Diagnosis:Spinal stenosis of lumbar region with neurogenic claudication [M48.062] Order(s):XR LUMBAR LIMITED 2V AP/LAT [[id number]] Order #: [id number] FUTURE CT LUMBAR SPINE WO IVCON [[id number]] Order #: [id number] FUTURE Prescriptions as of 03/26/2023 - naloxone 4 mg/actuation nasal spray (NARCAN) Use 1 spray in one nostril as needed for overdose. May repeat every 2 to 3 min in alternating nostrils until medical assistance is available - metoclopramide HCl (REGLAN) 10 mg tablet Take 10 mg by mouth as needed. - FEROSUL 325 mg (65 mg iron) tablet Take 1 tablet by mouth every 12 (twelve) hours. - hydrOXYzine HCl (ATARAX) 25 mg tablet TAKE 1 TABLET BY MOUTH FOUR TIMES DAILY NEEDED MUST LAST 30 DAYS - omeprazole (PRILOSEC) 20 mg capsule Take 1 capsule by mouth twice daily. - doxazosin (CARDURA) 4 mg tablet Take 4 mg by mouth. - irbesartan (AVAPRO) 300 mg tablet 1/2 tablet Orally Once a day for 60 days - pioglitazone (ACTOS) 30 mg tablet - bumetanide (BUMEX) 1 mg tablet Take 1 tablet by mouth once daily. - tamsulosin (FLOMAX) 0.4 mg Take 1 capsule by mouth once daily. - tizanidine HCl (ZANAFLEX ORAL) daily at bedtime. - traZODone (DESYREL) 150 mg tablet - simvastatin (ZOCOR) 10 mg tablet Take 1 tablet by mouth once daily. 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 [facility] XR LUMBAR 2V AP/LATon 2023 XR LUMBAR 2V AP/LAT * * *Final Report* * * DATE OF EXAM: Mar 25 2023 3:43PM FVX 5229 - XR LUMBAR 2V AP/LAT / PROCEDURE REASON: multiple diagnoses * * * * Physician Interpretation * * * * TECHNIQUE: Lumbosacral spine series 2 views HISTORY: Lumbar pain, spondylolisthesis. COMPARISON STUDY: 02/07/2023 RESULT: For the purpose of this report the iliac crest will be considered the L4/L5 level. There are postsurgical changes from a posterior L2-S1 fusion. There are disc cages at the L2/L3 and L3/L4. There is mild grade 1 retrolisthesis of L3 on L4 and possible minimal anterolisthesis of L4 on L5. There is significant narrowing of the L4/L5 and L5/S1 disc spaces. The hardware appears intact. IMPRESSION: 1. Degenerative and postsurgical changes. Television Station Manager: PSCB Transcribe Date/Time: Mar 27 2023 9:39A Dictated by : TYLER CASTILLO MD This examination was interpreted and the report reviewed and electronically signed by: TYLER CASTILLO MD on Mar 27 2023 9:41AM EST [id number] [facility] CNPAlejandra 03-07-2023 CNPN Telephone (NEADFV) SUKHDEEP SIMENTAL ([id number]) 1965 M Date Time Provider Department 03/07/23 EDD MATHEW During your visit today, we recorded the following information about you: Emily Rondon 03/07/2023 10:46 AM Signed Scan prudential completed form in chart for records. Allergies As of Date: 03/07/2023 (No Known Allergies) Date Reviewed: 02/07/2023 Reviewed by: Brittany Ratliff - Fully Assessed Prescriptions as of 03/14/2023 - naloxone 4 mg/actuation nasal spray (NARCAN) Use 1 spray in one nostril as needed for overdose. May repeat every 2 to 3 min in alternating nostrils until medical assistance is available - metoclopramide HCl (REGLAN) 10 mg tablet Take 10 mg by mouth as needed. - FEROSUL 325 mg (65 mg iron) tablet Take 1 tablet by mouth every 12 (twelve) hours. - hydrOXYzine HCl (ATARAX) 25 mg tablet TAKE 1 TABLET BY MOUTH FOUR TIMES DAILY NEEDED MUST LAST 30 DAYS - omeprazole (PRILOSEC) 20 mg capsule Take 1 capsule by mouth twice daily. - doxazosin (CARDURA) 4 mg tablet Take 4 mg by mouth. - irbesartan (AVAPRO) 300 mg tablet 1/2 tablet Orally Once a day for 60 days - pioglitazone (ACTOS) 30 mg tablet - bumetanide (BUMEX) 1 mg tablet Take 1 tablet by mouth once daily. - tamsulosin (FLOMAX) 0.4 mg Take 1 capsule by mouth once daily. - tizanidine HCl (ZANAFLEX ORAL) daily at bedtime. - traZODone (DESYREL) 150 mg tablet - simvastatin (ZOCOR) 10 mg tablet Take 1 tablet by mouth once daily. 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] 12/09/2013 12/07/2022 Corneal edema, unspecified [H18.20] 12/10/2013 12/07/2022 Anxiety [F41.9] 12/27/2021 Essential hypertension [I10] 02/02/2020 Essential tremor [G25.0] 11/21/2022 Gastroesophageal reflux disease [K21.9] 12/27/2021 History of pulmonary embolism [Z86.711] 01/05/2022 Morbid obesity (HCC) [E66.01] 12/27/2021 ELIDA (obstructive sleep apnea) [G47.33] 12/27/2021 Secondary hyperparathyroidism (HCC) [N25.81] 11/21/2022 11/21/2022 Type 2 diabetes mellitus without complications *02/02/2020 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 Status post lumbar spinal fusion [Z98.1] 12/07/2022 Stage 3 chronic kidney disease (HCC) [N18.30] 12/07/2022 CIRO (iron deficiency anemia) [D50.9] 12/07/2022 HLD (hyperlipidemia) [E78.5] 12/07/2022 BPH (benign prostatic hyperplasia) [N40.0] 12/07/2022 Obesity, Class III, BMI >= 40 [E66.01] 12/08/2022 Encounter Status:Closed by EMILY RONDON on 03/14/23 [facility] 03-06-2023 HARIKA Telephone (NSFRVW) SUKHDEEP SIMENTAL ([id number]) 1965 M Date Time Provider Department 03/06/23 EDD MATHEW [facility] During your visit today, we recorded the following information about you: Juan Pablo Nova RN 03/06/2023 9:34 AM Signed Patient called regarding disability forms. Patient is concerned as forms have him returning to work on 03/09/23. Per patient he is still using a walker, concerned about ability to return to work. Patient has a follow up appointment on 03/25/23. Asking for extension of leave. Will discuss with provider and update patient. Juan Pablo Nova RN 03/07/2023 10:24 AM Signed Spoke with patient and informed that leave has been extended through 03/26/23. Informed need for further extension can be discussed at upcoming appointment on 03/25/23. Allergies As of Date: 03/06/2023 (No Known Allergies) Date Reviewed: 02/07/2023 Reviewed by: Brittany Ratliff - Fully Assessed Prescriptions as of 03/07/2023 - naloxone 4 mg/actuation nasal spray (NARCAN) Use 1 spray in one nostril as needed for overdose. May repeat every 2 to 3 min in alternating nostrils until medical assistance is available - metoclopramide HCl (REGLAN) 10 mg tablet Take 10 mg by mouth as needed. - FEROSUL 325 mg (65 mg iron) tablet Take 1 tablet by mouth every 12 (twelve) hours. - hydrOXYzine HCl (ATARAX) 25 mg tablet TAKE 1 TABLET BY MOUTH FOUR TIMES DAILY NEEDED MUST LAST 30 DAYS - omeprazole (PRILOSEC) 20 mg capsule Take 1 capsule by mouth twice daily. - doxazosin (CARDURA) 4 mg tablet Take 4 mg by mouth. - irbesartan (AVAPRO) 300 mg tablet 1/2 tablet Orally Once a day for 60 days - pioglitazone (ACTOS) 30 mg tablet - bumetanide (BUMEX) 1 mg tablet Take 1 tablet by mouth once daily. - tamsulosin (FLOMAX) 0.4 mg Take 1 capsule by mouth once daily. - tizanidine HCl (ZANAFLEX ORAL) daily at bedtime. - traZODone (DESYREL) 150 mg tablet - simvastatin (ZOCOR) 10 mg tablet Take 1 tablet by mouth once daily. 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] 12/09/2013 12/07/2022 Corneal edema, unspecified [H18.20] 12/10/2013 12/07/2022 Anxiety [F41.9] 12/27/2021 Essential hypertension [I10] 02/02/2020 Essential tremor [G25.0] 11/21/2022 Gastroesophageal reflux disease [K21.9] 12/27/2021 History of pulmonary embolism [Z86.711] 01/05/2022 Morbid obesity (HCC) [E66.01] 12/27/2021 ELIDA (obstructive sleep apnea) [G47.33] 12/27/2021 Secondary hyperparathyroidism (HCC) [N25.81] 11/21/2022 11/21/2022 Type 2 diabetes mellitus without complications *02/02/2020 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 Status post lumbar spinal fusion [Z98.1] 12/07/2022 Stage 3 chronic kidney disease (HCC) [N18.30] 12/07/2022 CIRO (iron deficiency anemia) [D50.9] 12/07/2022 HLD (hyperlipidemia) [E78.5] 12/07/2022 BPH (benign prostatic hyperplasia) [N40.0] 12/07/2022 Obesity, Class III, BMI >= 40 [E66.01] 12/08/2022 Encounter Status:Closed by JUAN PABLO NOVA on 03/06/23 [facility] 02-11-2023 [facility] Telephone (NIQ) SUKHDEEP SIMENTAL ([id number]) 1965 M Date Time Provider Department 02/11/23 EDD MATHEW During your visit today, we recorded the following information about you: Moriah Ferguson 02/11/2023 1:36 PM Signed Received fax from [employer] requesting office notes, C-9, and [employer] 14. See fax scanned in patient's chart. Juan Pablo Nova RN 02/13/2023 3:14 PM Signed Information faxed to number requested. Faxed verification received. Neal Robson F 03/06/2023 3:20 PM Signed Received updated notes from [facility] dated 03/05/23. Scanned into [employer]. Allergies As of Date: 02/11/2023 (No Known Allergies) Date Reviewed: 02/07/2023 Reviewed by: Brittany Ratliff - Fully Assessed Reason for Visit: [facility] (Worker's Comp) [4136] Prescriptions as of 03/07/2023 - naloxone 4 mg/actuation nasal spray (NARCAN) Use 1 spray in one nostril as needed for overdose. May repeat every 2 to 3 min in alternating nostrils until medical assistance is available - metoclopramide HCl (REGLAN) 10 mg tablet Take 10 mg by mouth as needed. - FEROSUL 325 mg (65 mg iron) tablet Take 1 tablet by mouth every 12 (twelve) hours. - hydrOXYzine HCl (ATARAX) 25 mg tablet TAKE 1 TABLET BY MOUTH FOUR TIMES DAILY NEEDED MUST LAST 30 DAYS - omeprazole (PRILOSEC) 20 mg capsule Take 1 capsule by mouth twice daily. - doxazosin (CARDURA) 4 mg tablet Take 4 mg by mouth. - irbesartan (AVAPRO) 300 mg tablet 1/2 tablet Orally Once a day for 60 days - pioglitazone (ACTOS) 30 mg tablet - bumetanide (BUMEX) 1 mg tablet Take 1 tablet by mouth once daily. - tamsulosin (FLOMAX) 0.4 mg Take 1 capsule by mouth once daily. - tizanidine HCl (ZANAFLEX ORAL) daily at bedtime. - traZODone (DESYREL) 150 mg tablet - simvastatin (ZOCOR) 10 mg tablet Take 1 tablet by mouth once daily. 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] 12/09/2013 12/07/2022 Corneal edema, unspecified [H18.20] 12/10/2013 12/07/2022 Anxiety [F41.9] 12/27/2021 Essential hypertension [I10] 02/02/2020 Essential tremor [G25.0] 11/21/2022 Gastroesophageal reflux disease [K21.9] 12/27/2021 History of pulmonary embolism [Z86.711] 01/05/2022 Morbid obesity (HCC) [E66.01] 12/27/2021 ELIDA (obstructive sleep apnea) [G47.33] 12/27/2021 Secondary hyperparathyroidism (HCC) [N25.81] 11/21/2022 11/21/2022 Type 2 diabetes mellitus without complications *02/02/2020 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 Status post lumbar spinal fusion [Z98.1] 12/07/2022 Stage 3 chronic kidney disease (HCC) [N18.30] 12/07/2022 CIRO (iron deficiency anemia) [D50.9] 12/07/2022 HLD (hyperlipidemia) [E78.5] 12/07/2022 BPH (benign prostatic hyperplasia) [N40.0] 12/07/2022 Obesity, Class III, BMI >= 40 [E66.01] 12/08/2022 Encounter Status:Closed by JUAN PABLO NOVA on 02/13/23 [facility] Pre-Certification Formon Pre-Certification Form [id number] Normal [facility] CNOVon 02-07-2023 CNOV Office Visit (NSFRVW ) SUKHDEEP SIMENTAL ([id number]) 1965 M Date Time Provider Department 02/07/23 3:00 PM RIDDHI GOSS NSFRVW During your visit today, we recorded the following information about you: Temperature Pulse Blood pressure Weight 98.6 degrees 79/minute 157/80 122.9 kg Riddhi Goss APRN.MICA MINER BLASTING 02/08/2023 3:34 PM Signed SPINE SURGERY FOLLOW UP This is an in-person visit. SERVICE DATE: 02/07/2023 SURGERY DATE: 12/07/22 Sukhdeep Simental is seen for 6 week post operative follow up. He is s/p L2-S1 revision instrumented fusion, L2-3 3-4 TLIF. He states his low back pain is about the same since before surgery and his radicular pain is improved. He endorses right leg weakness since prior to surgery that has been unchanged. Since his procedure he endorses increased skin sensitivity and feeling of pins and needles in his feet and right calf. He endorses trouble sleeping. He continues to require using a Rolator for ambulation. Has tried gabapentin and lyrica in the past without relief. Denies bowel or bladder incontinence. PAIN EVALUATION 02/07/2023 1437 Pain Level: 4 Pain Location: Back-Lower Description: Aching;Shooting;Sharp Duration Units: Unknown Patient Entered Questionnaires PROMIS Score Percentiles Percentiles provide an indication of how the patient's score ranks in relation to the general population. Higher percentile rankings indicate better function/quality of life. 50th percentile is the average of the general population and indicates half of respondents had a worse score. Depression Screening: PHQ-9 Self-Harm (Item 9) response options: 0 Not at all 1 Several days 2 More than half the days 3 Nearly every day PHQ-9 Levels: 0-4 No to mild depression 5-9 Mild depression 10-14 Moderate depression 15-19 Moderately severe depression 20-27 Severe depression PHYSICAL EXAM: BP 157/80 Pulse 79 Temp 37 ?C (98.6 ?F) Wt 122.9 kg (271 lb) SpO2 98% BMI 40.02 kg/m? GENERAL APPEARANCE: Well nourished, well developed, and no apparent distress. NEURO PSYCH: Patient oriented to person, place, and time. Mood pleasant. Benign affect. MUSCULOSKELETAL VISUAL INSPECTION CERVICAL: WNL THORACIC: WNL LUMBAR: WNL MOTOR: 5/5 in all muscle groups. Except right HF 3/5 and KE 4/5 SENSORY: Normal sensory exam GAIT: Use rolator for support, +shopping cart LONG TRACT SIGNS: No clonus. No Hoffmans. WOUND ASSESSMENT: Well approximated incision, Non-reddened, well healing incision. DATA REVIEW [facility] records independently reviewed ASSESSMENT/PLAN (M51.36, M43.16) Lumbar adjacent segment disease with spondylolisthesis (primary encounter diagnosis) Sukhdeep Simental will continue with medical management of his condition. Ok to start aquatic therapy as incision is well healed, discussed starting PT, starting membrane stabilizer but he declined. Lumbar xray pending. 1. Consults: Physical Therapy 2. Follow up: Six weeks I spent a total of 17 minutes on the date of the service which included preparing to see the patient, [id number] patient care, completing clinical documentation, obtaining and/or reviewing separately obtained history, performing a medically appropriate examination, counseling and educating the patient/family/caregiv er, and ordering medications, tests, or procedures. 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 May repeat every 2 to 3 min in alternating nostrils until medical assistance is available - metoclopramide HCl (REGLAN) 10 mg tablet Take 10 mg by mouth as needed. - FEROSUL 325 mg (65 mg iron) tablet Take 1 tablet by mouth every 12 (twelve) hours. - hydrOXYzine HCl (ATARAX) 25 mg tablet TAKE 1 TABLET BY MOUTH FOUR TIMES DAILY NEEDED MUST LAST 30 DAYS - omeprazole (PRILOSEC) 20 mg capsule Take 1 capsule by mouth twice daily. - doxazosin (CARDURA) 4 mg tablet Take 4 mg by mouth. - irbesartan (AVAPRO) 300 mg tablet 1/2 tablet Orally Once a day for 60 days - pioglitazone (ACTOS) 30 mg tablet - bumetanide (BUMEX) 1 mg tablet Take 1 tablet by mouth once daily. - tamsulosin (FLOMAX) 0.4 mg Take 1 capsule by mouth once daily. - tizanidine HCl (ZANAFLEX ORAL) daily at bedtime. - traZODone (DESYREL) 150 mg tablet - simvastatin (ZOCOR) 10 mg tab (more content not included)... [facility] 02-07-2023 [facility] Telephone (NSFRVW) SUKHDEEP SIMENTAL ([id number]) 1965 M Date Time Provider Department 02/07/23 EDD MATHEW [facility] During your visit today, we recorded the following information about you: Juan Pablo Nova RN 02/07/2023 3:46 PM Signed C9 for physical therapy faxed to [employer]. Faxed verification received. Allergies As of Date: 02/07/2023 (No Known Allergies) Date Reviewed: 02/07/2023 Reviewed by: Brittany Ratliff - Fully Assessed Prescriptions as of 02/07/2023 - naloxone 4 mg/actuation nasal spray (NARCAN) Use 1 spray in one nostril as needed for overdose. May repeat every 2 to 3 min in alternating nostrils until medical assistance is available - metoclopramide HCl (REGLAN) 10 mg tablet Take 10 mg by mouth as needed. - FEROSUL 325 mg (65 mg iron) tablet Take 1 tablet by mouth every 12 (twelve) hours. - hydrOXYzine HCl (ATARAX) 25 mg tablet TAKE 1 TABLET BY MOUTH FOUR TIMES DAILY NEEDED MUST LAST 30 DAYS - omeprazole (PRILOSEC) 20 mg capsule Take 1 capsule by mouth twice daily. - doxazosin (CARDURA) 4 mg tablet Take 4 mg by mouth. - irbesartan (AVAPRO) 300 mg tablet 1/2 tablet Orally Once a day for 60 days - pioglitazone (ACTOS) 30 mg tablet - bumetanide (BUMEX) 1 mg tablet Take 1 tablet by mouth once daily. - tamsulosin (FLOMAX) 0.4 mg Take 1 capsule by mouth once daily. - tizanidine HCl (ZANAFLEX ORAL) daily at bedtime. - traZODone (DESYREL) 150 mg tablet - simvastatin (ZOCOR) 10 mg tablet Take 1 tablet by mouth once daily. 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] 12/09/2013 12/07/2022 Corneal edema, unspecified [H18.20] 12/10/2013 12/07/2022 Anxiety [F41.9] 12/27/2021 Essential hypertension [I10] 02/02/2020 Essential tremor [G25.0] 11/21/2022 Gastroesophageal reflux disease [K21.9] 12/27/2021 History of pulmonary embolism [Z86.711] 01/05/2022 Morbid obesity (HCC) [E66.01] 12/27/2021 ELIDA (obstructive sleep apnea) [G47.33] 12/27/2021 Secondary hyperparathyroidism (HCC) [N25.81] 11/21/2022 11/21/2022 Type 2 diabetes mellitus without complications *02/02/2020 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 Status post lumbar spinal fusion [Z98.1] 12/07/2022 Stage 3 chronic kidney disease (HCC) [N18.30] 12/07/2022 CIRO (iron deficiency anemia) [D50.9] 12/07/2022 HLD (hyperlipidemia) [E78.5] 12/07/2022 BPH (benign prostatic hyperplasia) [N40.0] 12/07/2022 Obesity, Class III, BMI >= 40 [E66.01] 12/08/2022 Encounter Status:Closed by JUAN PABLO NOVA on 02/07/23 [facility] XR LUMBAR 2V AP/LATon 2022 XR LUMBAR 2V AP/LAT * * *Final Report* * * DATE OF EXAM: Feb 07 2023 3:42PM FVX 5229 - XR LUMBAR 2V AP/LAT / PROCEDURE REASON: multiple diagnoses * * * * Physician Interpretation * * * * History: Pain TECHNIQUE: 2 views of the lumbar spine Comparison dated 12/09/2022. Findings/ impression: There are moderate degenerative changes of spine. Status post fusion of L2-S1 with interbody cages at L2/L3 and L3/L4. The hardware is intact. Television Station Manager: PSCB Transcribe Date/Time: Feb 12 2023 8:31A Dictated by : DANIELA SAHNI MD This examination was interpreted and the report reviewed and electronically signed by: DANIELA SAHNI MD on Feb 12 2023 8:35AM EST [id number] Normal [facility] RAD - CT Reporton 02-05-2023 RAD - CT Report [id number] 20 [id number] Normal [facility] Ambulatory Visit Summaryon 1 04-07-2022 Ambulatory Visit Summary SUKHDEEP SIMENTAL :1965 Visit Date:02/04/2023 Ambulatory Visit Instructions Your Diagnosis Renal mass Kidney stone Prostate cancer screening Tests Performed CT Abdomen/Pelvis w/o Contrast -- Results Pending -- Please visit your patient portal for your results or contact your primary care physician. Your Care Team Attending Physician - Cecelia MURILLO MD Primary Care Physician - Derick Isabel MD This Is Your Medications List Contact prescribing physician if questions or concerns acetaminophen-oxycodon e (acetaminophen-oxycodo ne 325 mg-10 mg oral tablet) bumetanide (bumetanide 1 mg Tab) doxazosin (doxazosin 4 mg Tab) doxepin (doxepin 10 mg Cap) ferrous sulfate (FeroSul 325 mg oral tablet) irbesartan (Avapro 300 mg Tab) metoclopramide (metoclopramide 10 mg Tab) multivitamin with minerals (Multivitamin, Therapeutic w/ Minerals) omeprazole (omeprazole 20 mg Cap-DR) pioglitazone (pioglitazone 30 mg Tab) simvastatin sucralfate (sucralfate 1 g Tab) tamsulosin (tamsulosin 0.4 mg Cap) testosterone (Testosterone Cypionate 200 mg/mL intramuscular solution) tizanidine (Zanaflex 4 mg Tab) trazodone (traZODONE 150 mg Tab) Procedures Performed Arthroplasty of knee (2022), Fusion of lumbar spine (2022), Cystoscopic removal of ureteric stent (07/13/2021), ESWL of kidney (07/13/2021), Cystoscopic insertion of ureteric stent (06/29/2021), Gastric sleeve (04/2021), Cystoscopy (03/28/2020), ESWL (extracorporeal shockwave lithotripsy) of ureteric calculus (02/24/2020), Colonoscopy (12/18/2017), cysto rt retrograde rt ureteroscopy rt holmium laser lithotripsy rt j stent with string (05/25/2016), Ankle joint operations, Bilateral replacement of knee joints, Cystoscopy, Lumbar spinal fusion, Meniscectomy. Discharge Vitals Heart Rate (Peripheral) 79 Respiratory Rate 16 Blood Pressure 139/88 Height 175 cm Height 69 in Weight 141 kg Weight 310.2 lb BMI 46.04 What to do next Scheduled Follow-Up Appointments Saturday 10:30 AM EST With: Cecelia MURILLO MD Where: [facility]04[facility]20[facility] SUKHDEEP SIMENTAL ([id number]) 1965 M Date Time Provider Department 02/04/23 EDD MATHEW [facility] During your visit today, we recorded the following information about you: Robson De Jesus 02/04/2023 9:01 AM Signed Received a fax from [employer] requesting additional information for a disability claim with a questionnaire to be filled out. Scanned into [employer]. Juan Pablo Nova RN 02/13/2023 1:09 PM Signed Form completed and faxed to number requested. Faxed verification received. Allergies As of Date: 02/04/2023 (No Known Allergies) Date Reviewed: 12/20/2022 Reviewed by: Mundo Ness PCNA - Fully Assessed Reason for Visit: Forms [913] Cmt: prudential Prescriptions as of 02/13/2023 - naloxone 4 mg/actuation nasal spray (NARCAN) Use 1 spray in one nostril as needed for overdose. May repeat every 2 to 3 min in alternating nostrils until medical assistance is available - metoclopramide HCl (REGLAN) 10 mg tablet Take 10 mg by mouth as needed. - FEROSUL 325 mg (65 mg iron) tablet Take 1 tablet by mouth every 12 (twelve) hours. - hydrOXYzine HCl (ATARAX) 25 mg tablet TAKE 1 TABLET BY MOUTH FOUR TIMES DAILY NEEDED MUST LAST 30 DAYS - omeprazole (PRILOSEC) 20 mg capsule Take 1 capsule by mouth twice daily. - doxazosin (CARDURA) 4 mg tablet Take 4 mg by mouth. - irbesartan (AVAPRO) 300 mg tablet 1/2 tablet Orally Once a day for 60 days - pioglitazone (ACTOS) 30 mg tablet - bumetanide (BUMEX) 1 mg tablet Take 1 tablet by mouth once daily. - tamsulosin (FLOMAX) 0.4 mg Take 1 capsule by mouth once daily. - tizanidine HCl (ZANAFLEX ORAL) daily at bedtime. - traZODone (DESYREL) 150 mg tablet - simvastatin (ZOCOR) 10 mg tablet Take 1 tablet by mouth once daily. 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] 12/09/2013 12/07/2022 Corneal edema, unspecified [H18.20] 12/10/2013 12/07/2022 Anxiety [F41.9] 12/27/2021 Essential hypertension [I10] 02/02/2020 Essential tremor [G25.0] 11/21/2022 Gastroesophageal reflux disease [K21.9] 12/27/2021 History of pulmonary embolism [Z86.711] 01/05/2022 Morbid obesity (HCC) [E66.01] 12/27/2021 ELIDA (obstructive sleep apnea) [G47.33] 12/27/2021 Secondary hyperparathyroidism (HCC) [N25.81] 11/21/2022 11/21/2022 Type 2 diabetes mellitus without complications *02/02/2020 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 Status post lumbar spinal fusion [Z98.1] 12/07/2022 Stage 3 chronic kidney disease (HCC) [N18.30] 12/07/2022 CIRO (iron deficiency anemia) [D50.9] 12/07/2022 HLD (hyperlipidemia) [E78.5] 12/07/2022 BPH (benign prostatic hyperplasia) [N40.0] 12/07/2022 Obesity, Class III, BMI >= 40 [E66.01] 12/08/2022 Encounter Status:Closed by JUAN PABLO NOVA on 02/13/23 [facility] Patient Educationon 02-05-20 Patient Education Nephrology Dietary Guidelines to Help Prevent Kidney Stones Kidney stones are deposits of minerals and salts that form inside your kidneys. Your risk of developing kidney stones may be greater depending on your diet, your lifestyle, the medicines you take, and whether you have certain medical conditions. Most people can lower their risks of developing kidney stones by following these dietary guidelines. Your dietitian may give you more specific instructions depending on your overall health and the type of kidney stones you tend to develop. What are tips for following this plan? Reading food labels ? Choose foods with no salt added or low-salt labels. Limit your salt (sodium) intake to less than 1,500 mg a day. ? Choose foods with calcium for each meal and snack. Try to eat about 300 mg of calcium at each meal. Foods that contain 200?500 mg of calcium a serving include: ? 8 oz (237 mL) of milk, ekwwdnl-mwcxkdbppquv-m airy milk, and calcium-fortifiedfruit juice. Calcium-fortified means that calcium has been added to these drinks. ? 8 oz (237 mL) of kefir, yogurt, and soy yogurt. ? 4 oz (114 g) of tofu. ? 1 oz (28 g) of cheese. ? 1 cup (150 g) of dried figs. ? 1 cup (91 g) of cooked broccoli. ? One 3 oz (85 g) can of sardines or mackerel. Most people need 1,000?1,500 mg of calcium a day. Talk to your dietitian about how much calcium is recommended for you. Shopping ? Buy plenty of fresh fruits and vegetables. Most people do not need to avoid fruits and vegetables, even if these foods contain nutrients that may contribute to kidney stones. ? When shopping for convenience foods, choose: ? Whole pieces of fruit. ? Pre-made salads with dressing on the side. ? Low-fat fruit and yogurt smoothies. ? Avoid buying frozen meals or prepared deli foods. These can be high in sodium. ? Look for foods with live cultures, such as yogurt and kefir. ? Choose high-fiber grains, such as whole-wheat breads, oat bran, and wheat cereals. Cooking ? Do not add salt to food when cooking. Place a salt shaker on the table and allow each person to add their own salt to taste. ? Use vegetable protein, such as beans, textured vegetable protein (TVP), or tofu, instead of meat in pasta, casseroles, and soups. Meal planning ? Eat less salt, if told by your dietitian. To do this: ? Avoid eating processed or pre-made food. ? Avoid eating fast food. ? Eat less animal protein, including cheese, meat, poultry, or fish, if told by your dietitian. To do this: ? Limit the number of times you have meat, poultry, fish, or cheese each week. Eat a diet free of meat at least 2 days a week. ? Eat only one serving each day of meat, poultry, fish, or seafood. ? When you prepare animal proteins, cut pieces into small portion sizes. For most meat and fish, one serving is about the size of the palm of your hand. ? Eat at least five servings of fresh fruits and vegetables each day. To do this: ? Keep fruits and vegetables on hand for snacks. ? Eat one piece of fruit or a handful of berries with breakfast. ? Have a salad and fruit at lunch. ? Have two kinds of vegetables at dinner. ? You may be told to limit foods that are high in a substance called oxalate. These include: ? Spinach (cooked), rhubarb, beets, sweet potatoes, and Prydeinig chard. ? Peanuts. ? Potato chips, costa rican fries, and baked potatoes with skin on. ? Nuts and nut products. ? Chocolate. ? If you regularly take a diuretic medicine, make sure to eat at least 1 or 2 servings of fruits or vegetables that are high in potassium each day. These include: ? Avocado. ? Banana. ? [place], prune, carrot, or tomato juice. ? Baked potato. ? Cabbage. ? Beans and split peas. Lifestyle ? Drink enough fluid to keep your urine pale yellow. This is the most important thing you can do. Spread your fluid intake throughout the day. ? If you drink alcohol: ? Limit how much you have to: ? 0?1 drink a day for women who are not . ? 0?2 drinks a day for men. ? Know how much alcohol is in your drink. In the [place] one drink equals one 12 oz bottle of beer (355 mL), one 5 oz glass of wine (148 mL), or one 1? oz glass of hard liquor (44 mL). ? Lose weight if told by your health care provider. Work with your dietitian to find an eating plan and weight loss strategies that work best for you. General information ? Talk to your health care provider and dietitian about taking daily supplements. Depending on your health and the cause of your kidney stones, you may be told: ? Do not take high-dose supplements of vitamin C (1,000 mg a day or more). ? To take a calcium supplement. ? To take a daily probiotic supplement. ? To take other supplements such as magnesium, fish oil, or vitamin B6. ? Take jnxq-tzp-xmyndkg and prescription medicines only as told by your health care provider. These include supplements. What foods sh (more content not included)... Normal [facility] Reminderson 02-04-2023 Reminders - From: Sosa Francisco To: EU - Recalls Murillo; Sent: 02/04/2023 10:31:25 EST Show up: 12/27/2023 10:31:00 EDT Subject: Ct scan Due Date/Time: 01/13/2024 10:31:00 EST Reminder/Recall [facility]- Ct scan ABD/Pelvis w/o contrast, ([facility]) prior to Feb 022023. Please follow thru with appt time and date. Last year pt was not called by our office or Hosp. He had to call to sched testing himself. Normal [facility] Urology Office/Clinic Noteon 02-04-2023 Urology Office/Clinic Note Chief Complaint right renal mass and kidney stones HPI Staff Pt last seen in our office 03/19/22 w/CT due to Renal Mass. Additional DX: Kidney Stone. Pt was then scheduled for 4m CT 07/16/22. However left that day without being seen due to long wait time. CT ap w/o 07/06/22 Pt is here today to follow up with another CT ap w/o 01/30/23 Tamsulosin 0.4mg QD from PCP. Dysuria: no Incomplete bladder emptying: no Hematuria: no Frequency: no Urgency: no Nocturia: no Stream: no straining Leaking: no Post void dripping: no Wearing pads/ Depends: no Urge incontinence: no Stress incontinence: no Incontinence without Sensory Awareness: no Abdominal pain: no Flank pain: no Sexual complaints: no History of Present Illness Tests reviewed: reviewed CT. I have reviewed the previous health record information and history for this patient from . I have reviewed and verified the staff HPI to be accurate for this encounter. There have been no associated fever, chills, flank pain, or blood in the urine. Denies any urinary infections since last encounter. Review of Systems PHQ Score Initial Depression Screen Score: 0 SCORE ROS - Provider Constitutional: denies weight loss, denies hot flashes. Eyes: denies eye problems. Gastrointestinal: denies nausea, denies vomiting. Cardiovascular: denies chest pain or angina. Integumentary: no dryness Musculoskeletal: denies musculoskeletal symptoms. ENMT: denies otolaryngeal symptoms. Respiratory: no shortness of breath. Heme/Lymph: denies easy bleeding tendency, denies easy bruising tendency. Psychiatric: no confusion, no anxiety. Genitourinary: See HPI. Physical Exam Vitals & Measurements HR: 79(Peripheral) RR: 16 BP: 139/88 HT: 69 in HT: 175 cm WT: 141 kg WT: 310.2 lb BMI: 46.04 General Appearance: alert, no distress, well nourished, well developed male. Assessment/Plan 1. Renal mass (N28.89: Other specified disorders of kidney and ureter) Seen in consult on 06/29/21 at [facility]. 11/14/21: BUN 19.0. Crea 1.62. eGFR 44. CT AP wo con done 03/12/22 shows 4 right renal hypodensities, the largest 3 cm, bilateral renal nonobstructive stones measuring up to 8 mm and stable mild bilateral adrenal nodularities. CT AP w/o Con 07/06/22 - multiple stable cortical hypodensities the largest measuring 2.8cm, cysts are suspected CT AP w/o Con 01/30/23 - mild nonspecific bilateral perinephric fat stranding, originating from the lower pole of the Rt kidney is a 2.7cm cyst Discussed imaging results with pt, stable, the mass may be a cyst and we would need an MRI or ct with contrast to determine if they are cysts for sure, but due to pt's previous surgeries of knee replacements and chronic kidney disease, we cannot do these. Advised pt that we could do a repeat CT scan in a year and if this is stable we can prolong the f/u's. Follow up in 1 yr w/CT. All questions/concerns were discussed. Pt to call the office if he encounters any issues prior. Pt acknowledges understanding. -Will order CT AP w/o Con. 2. Kidney stone (N20.0: Calculus of kidney) S/p L ESWL/L stent removal/L ureteroscopy/holmium laser litho of large left ureteral calculus/stone basket extraction done 07/13/[address] Murillo. SÁNCHEZ done 12/21/21 shows 1.7 x 1.3 x 1.1 cm hypervascular hypoechoic cortical medullary mass. Multiple echogenic foci in the right kidney, the largest measuring up to 1 (no measurement given) nonobstructing nephrolithiasis. 3 cm cortical cyst. Echogenic foci in the left kidney measuring up to 4 mm, nonobstructing nephrolithiasis. X-ray Ab done 12/21/21 shows no suspicious abdominal findings. Evaluation is slightly limited by patient body evidence. CT AP wo con done 03/12/22 shows bilateral renal nonobstructive stones measuring up to 8 mm and stable mild bilateral adrenal nodularities. CT AP w/o Con 07/06/22 - Bilateral nonobstructing stones CT AP w/o Con 01/30/23 - nonobstructing bilateral stones, largest is within the lower pole of the Rt kidney measuring approx 0.9cm 3. Prostate cancer screening (Z12.5: Encounter for screening for malignant neoplasm of prostate) Pt is not sure if he has had his PSA levels checked. Advised pt that we will order a PSA and call him with the results. -Will order PSA. Follow-up With When Contact Information Cecelia MURILLO MD, DILSHAD In 1 year [facility] [address] [place] [address]- Additional Instructions: w/CT AP w/o Con Patient Education Dietary Guidelines to Help Prevent Kidney Stones I, Nakia Ahn , personally scribed for Dr. Murillo on 02/04/2023 10:27:14. . Documentation recorded by the scribe, Nakia Ahn, accurately reflects the services(s) I performed and decisions made by me. Problem List/Past Medical History Ongoing Acute diarrhea Benign essential tremor BMI 40.0-44.9, adult Bowel habit changes Change in bowel habits (more content not included)... Normal [facility] Comment on above: Result Comment: Elec tronically Signed By: Cecelia MURILLO MD\\.br\\Date and Time Signed: 02/04/23 10:29 EST\\.br\\Electronically Co-Signed By: Nakia Ahn\\.br\\Date and Time Co-Signed: 02/04/23 10:27 EST Reminderson 02-01-2023 Reminders - From: Yaneth Frias To: EU - Alexis Murillo; Sent: 07/27/2022 14:22:37 EDT Show up: 11/26/2022 14:22:00 EDT Subject: Reminder Message Reminder Message Please Remember to:_ PATIENT RELATED REMINDER:_ ( X ) Call Patient To schedule CT Scan w/o contrast prior to next appt ( ) Ask Patient to ( ) Call Relative ( ) Schedule Patient ( ) Follow up on Results ( ) Other: PROVIDER RELATED REMINDER:_ ( ) Dairy Hand ( ) Call Pharmacy ( ) Call Lab ( ) Other: Special Instructions:_ Comments:_ From: Eve Kennedy MA (EU - Recalls Murillo) To: EU - Pending Results; Sent: 12/04/2022 11:31:17 EDT Show up: 01/07/2023 11:31:00 EST Subject: RE: Reminder Message Due Date/Time: 01/28/2023 11:31:00 EST Pt is scheduled to see PRW 02/04/23. Checked with Terri at [facility], no order. CT AP wo order faxed today. Spoke with Maribeth @ [facility] CS - precert pending through [employer]. CT complete and in chart. Will review at appt 02/04 [facility]23-2023 CNP[facility] Telephone ([facility]) SUKHDEEP SIMENTAL ([id number]) 1965 M Date Time Provider Department 01/23/23 EDD MATHEW [facility] During your visit today, we recorded the following information about you: Robson De Jesus 01/23/2023 10:26 AM Addendum Received fax from [employer]. Scanned into [employer]. Also received a RTW from [employer]. Scanned into [employer] as well. Allergies As of Date: 01/23/2023 (No Known Allergies) Date Reviewed: 12/20/2022 Reviewed by: Mundo Ness PCNA - Fully Assessed Reason for Visit: Received Outside Medical Records [[id number]] Cmt: [facility] Prescriptions as of 01/23/2023 - naloxone 4 mg/actuation nasal spray (NARCAN) Use 1 spray in one nostril as needed for overdose. May repeat every 2 to 3 min in alternating nostrils until medical assistance is available - metoclopramide HCl (REGLAN) 10 mg tablet Take 10 mg by mouth as needed. - FEROSUL 325 mg (65 mg iron) tablet Take 1 tablet by mouth every 12 (twelve) hours. - hydrOXYzine HCl (ATARAX) 25 mg tablet TAKE 1 TABLET BY MOUTH FOUR TIMES DAILY NEEDED MUST LAST 30 DAYS - omeprazole (PRILOSEC) 20 mg capsule Take 1 capsule by mouth twice daily. - doxazosin (CARDURA) 4 mg tablet Take 4 mg by mouth. - irbesartan (AVAPRO) 300 mg tablet 1/2 tablet Orally Once a day for 60 days - pioglitazone (ACTOS) 30 mg tablet - bumetanide (BUMEX) 1 mg tablet Take 1 tablet by mouth once daily. - tamsulosin (FLOMAX) 0.4 mg Take 1 capsule by mouth once daily. - tizanidine HCl (ZANAFLEX ORAL) daily at bedtime. - traZODone (DESYREL) 150 mg tablet - simvastatin (ZOCOR) 10 mg tablet Take 1 tablet by mouth once daily. 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] 12/09/2013 12/07/2022 Corneal edema, unspecified [H18.20] 12/10/2013 12/07/2022 Anxiety [F41.9] 12/27/2021 Essential hypertension [I10] 02/02/2020 Essential tremor [G25.0] 11/21/2022 Gastroesophageal reflux disease [K21.9] 12/27/2021 History of pulmonary embolism [Z86.711] 01/05/2022 Morbid obesity (HCC) [E66.01] 12/27/2021 ELIDA (obstructive sleep apnea) [G47.33] 12/27/2021 Secondary hyperparathyroidism (HCC) [N25.81] 11/21/2022 11/21/2022 Type 2 diabetes mellitus without complications *02/02/2020 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 Status post lumbar spinal fusion [Z98.1] 12/07/2022 Stage 3 chronic kidney disease (HCC) [N18.30] 12/07/2022 CIRO (iron deficiency anemia) [D50.9] 12/07/2022 HLD (hyperlipidemia) [E78.5] 12/07/2022 BPH (benign prostatic hyperplasia) [N40.0] 12/07/2022 Obesity, Class III, BMI >= 40 [E66.01] 12/08/2022 Encounter Status:Closed by JUAN PABLO NOVA on [facility]23/[facility] SUKHDEEP SIMENTAL ([id number]) 1965 M Date Time Provider Department 12/26/22 EDD MATHEW During your visit today, we recorded the following information about you: Emily Rondon 12/26/2022 1:57 PM Signed Received Prior Authorization from [employer] for medication Naloxone HC1 4 mg. Scan in patient chart for review. Juan Pablo Nova RN 12/27/2022 7:39 AM Signed PA completed. Awaiting response. Emily Rondon 12/27/2022 10:28 AM Signed Received prior authorization request form. Scan in patient chart for review. Emily Rondon 01/01/2023 10:39 AM Signed Received [facility] prior authorization. Scan in patient chart for review. Allergies As of Date: 12/26/2022 (No Known Allergies) Date Reviewed: 12/20/2022 Reviewed by: Mundo Ness PCNA - Fully Assessed Reason for Visit: Medication Authorization [[id number]] Prescriptions as of 01/01/2023 - naloxone 4 mg/actuation nasal spray (NARCAN) Use 1 spray in one nostril as needed for overdose. May repeat every 2 to 3 min in alternating nostrils until medical assistance is available - docusate sodium (COLACE) 100 mg capsule Take 1 capsule by mouth two times a day. - acetaminophen (TYLENOL) 500 mg tablet Take 2 tablets by mouth every 8 hours. - metoclopramide HCl (REGLAN) 10 mg tablet Take 10 mg by mouth as needed. - FEROSUL 325 mg (65 mg iron) tablet Take 1 tablet by mouth every 12 (twelve) hours. - hydrOXYzine HCl (ATARAX) 25 mg tablet TAKE 1 TABLET BY MOUTH FOUR TIMES DAILY NEEDED MUST LAST 30 DAYS - omeprazole (PRILOSEC) 20 mg capsule Take 1 capsule by mouth twice daily. - doxazosin (CARDURA) 4 mg tablet Take 4 mg by mouth. - irbesartan (AVAPRO) 300 mg tablet 1/2 tablet Orally Once a day for 60 days - pioglitazone (ACTOS) 30 mg tablet - bumetanide (BUMEX) 1 mg tablet Take 1 tablet by mouth once daily. - tamsulosin (FLOMAX) 0.4 mg Take 1 capsule by mouth once daily. - tizanidine HCl (ZANAFLEX ORAL) daily at bedtime. - traZODone (DESYREL) 150 mg tablet - simvastatin (ZOCOR) 10 mg tablet Take 1 tablet by mouth once daily. 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] 12/09/2013 12/07/2022 Corneal edema, unspecified [H18.20] 12/10/2013 12/07/2022 Anxiety [F41.9] 12/27/2021 Essential hypertension [I10] 02/02/2020 Essential tremor [G25.0] 11/21/2022 Gastroesophageal reflux disease [K21.9] 12/27/2021 History of pulmonary embolism [Z86.711] 01/05/2022 Morbid obesity (HCC) [E66.01] 12/27/2021 ELIDA (obstructive sleep apnea) [G47.33] 12/27/2021 Secondary hyperparathyroidism (HCC) [N25.81] 11/21/2022 11/21/2022 Type 2 diabetes mellitus without complications *02/02/2020 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 Status post lumbar spinal fusion [Z98.1] 12/07/2022 Stage 3 chronic kidney disease (HCC) [N18.30] 12/07/2022 CIRO (iron deficiency anemia) [D50.9] 12/07/2022 HLD (hyperlipidemia) [E78.5] 12/07/2022 BPH (benign prostatic hyperplasia) [N40.0] 12/07/2022 Obesity, Class III, BMI >= 40 [E66.01] 12/08/2022 Encounter Status:Closed by JUAN PABLO NOVA on 12/27/22 [facility] 12-21-2022 [facility] Telephone (NIQ) SUKHDEEP SIMENTAL ([id number]) 1965 M Date Time Provider Department 12/21/22 EDD MATHEW [facility] During your visit today, we recorded the following information about you: Moriah Ferguson 12/21/2022 9:29 AM Signed Patient called with complaints of [facility] not allowing him to strip picker the pain medication that was sent yesterday. They are telling the patient that he is picking it up too soon. Per patient, the old bottle had instructions to take every 12 hours, but his post op instruction said to take every 3 hours as needed, which is what he did. He would like our office to call the pharmacy and have them release is medication. Please call patient with an update. Allergies As of Date: 12/21/2022 (No Known Allergies) Date Reviewed: 12/20/2022 Reviewed by: Mundo Ness PCNA - Fully Assessed Reason for Visit: Medication Problem [65] Prescriptions as of 12/21/2022 - oxyCODONE (ROXICODONE) 15 mg immediate release tablet Take 1 tablet by mouth every 6 hours as needed for pain for up to 7 days. - naloxone 4 mg/actuation nasal spray (NARCAN) Use 1 spray in one nostril as needed for overdose. May repeat every 2 to 3 min in alternating nostrils until medical assistance is available - docusate sodium (COLACE) 100 mg capsule Take 1 capsule by mouth two times a day. - acetaminophen (TYLENOL) 500 mg tablet Take 2 tablets by mouth every 8 hours. - metoclopramide HCl (REGLAN) 10 mg tablet Take 10 mg by mouth as needed. - FEROSUL 325 mg (65 mg iron) tablet Take 1 tablet by mouth every 12 (twelve) hours. - hydrOXYzine HCl (ATARAX) 25 mg tablet TAKE 1 TABLET BY MOUTH FOUR TIMES DAILY NEEDED MUST LAST 30 DAYS - omeprazole (PRILOSEC) 20 mg capsule Take 1 capsule by mouth twice daily. - doxazosin (CARDURA) 4 mg tablet Take 4 mg by mouth. - irbesartan (AVAPRO) 300 mg tablet 1/2 tablet Orally Once a day for 60 days - pioglitazone (ACTOS) 30 mg tablet - bumetanide (BUMEX) 1 mg tablet Take 1 tablet by mouth once daily. - tamsulosin (FLOMAX) 0.4 mg Take 1 capsule by mouth once daily. - tizanidine HCl (ZANAFLEX ORAL) daily at bedtime. - traZODone (DESYREL) 150 mg tablet - simvastatin (ZOCOR) 10 mg tablet Take 1 tablet by mouth once daily. 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] 12/09/2013 12/07/2022 Corneal edema, unspecified [H18.20] 12/10/2013 12/07/2022 Anxiety [F41.9] 12/27/2021 Essential hypertension [I10] 02/02/2020 Essential tremor [G25.0] 11/21/2022 Gastroesophageal reflux disease [K21.9] 12/27/2021 History of pulmonary embolism [Z86.711] 01/05/2022 Morbid obesity (HCC) [E66.01] 12/27/2021 ELIDA (obstructive sleep apnea) [G47.33] 12/27/2021 Secondary hyperparathyroidism (HCC) [N25.81] 11/21/2022 11/21/2022 Type 2 diabetes mellitus without complications *02/02/2020 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 Status post lumbar spinal fusion [Z98.1] 12/07/2022 Stage 3 chronic kidney disease (HCC) [N18.30] 12/07/2022 CIRO (iron deficiency anemia) [D50.9] 12/07/2022 HLD (hyperlipidemia) [E78.5] 12/07/2022 BPH (benign prostatic hyperplasia) [N40.0] 12/07/2022 Obesity, Class III, BMI >= 40 [E66.01] 12/08/2022 Encounter Status:Closed by MYRNA SCHRADER on 12/21/22 [facility] CNOVon 12-20-2022 CNOV Office Visit (NSFRVW ) KAMILLESUKHDEEP ([id number]) 1965 M Date Time Provider Department 12/20/22 2:30 PM HELEN MORGAN NSFRVW During your visit today, we recorded the following information about you: Pulse Blood pressure Weight Height 76/minute 165/84 123.1 kg 1.753 m Helen Morgan PA-C 12/20/2022 3:17 PM Signed SPINE SURGERY FOLLOW UP This is an in-person visit. SERVICE DATE: 12/20/2022 SURGERY DATE: 12/07/22 Sukhdeep Simental is seen for 2 week post operative follow up from L2-S1 revision instrumented fusion, L2-3 3-4 TLIF. He states his pre-op pain is unchanged. He is using a rollator for ambulation. He is having a pins and needles feeling in his right foot which is new. PAIN EVALUATION 12/20/2022 1425 Pain Level: 8 Pain Location: Back-Lower Description: Burning;Aching;Other: See comment Frequency: Continuous Comments: spikes Patient Entered Questionnaires PROMIS Score Percentiles Percentiles provide an indication of how the patient's score ranks in relation to the general population. Higher percentile rankings indicate better function/quality of life. 50th percentile is the average of the general population and indicates half of respondents had a worse score. Depression Screening: PHQ-9 Self-Harm (Item 9) response options: 0 Not at all 1 Several days 2 More than half the days 3 Nearly every day PHQ-9 Levels: 0-4 No to mild depression 5-9 Mild depression 10-14 Moderate depression 15-19 Moderately severe depression 20-27 Severe depression PHYSICAL EXAM: BP 165/84 Pulse 76 Ht 175.3 cm (5' 9 ) Wt 123.1 kg (271 lb 6.4 oz) SpO2 97% BMI 40.08 kg/m? GENERAL APPEARANCE: Well nourished, well developed, and no apparent distress. NEURO PSYCH: Patient oriented to person, place, and time. Mood pleasant. Benign affect. MUSCULOSKELETAL VISUAL INSPECTION CERVICAL: WNL THORACIC: WNL LUMBAR: WNL MOTOR: 5/5 in all muscle groups. SENSORY: Normal sensory exam GAIT: Using rollator, + shopping cart. Incision healing well with mahendra. DATA REVIEW No additional images reviewed today ASSESSMENT/PLAN (M51.36, M43.16) Lumbar adjacent segment disease with spondylolisthesis (primary encounter diagnosis) Sukhdeep Simental will continue with medical management of his/her condition. 1. Percocet refill sent. 2. Follow up: 6 weeks post op 3. Standing x-rays ordered. 4. We will discuss PT at next appointment. I spent a total of 20 minutes on the date of the service which included preparing to see the patient, [id number] patient care, completing clinical documentation, obtaining and/or reviewing separately obtained history, performing a medically appropriate examination, counseling and educating the patient/family/caregiv er, and ordering medications, tests, or procedures. SIGNATURE: Helen Morgan PA-C PATIENT NAME: Sukhdeep Simental DATE: December 20, 2022 TIME: 2:58 PM PAGER: Referring Provider: SELF [200] Allergies As of Date: 12/20/2022 (No Known Allergies) Date Reviewed: 12/20/2022 Reviewed by: Mundo Ness PCNA - Fully Assessed Reason for Visit: Post Op [174] Cmt: Staple removal Primary Visit Diagnosis:Lumbar adjacent segment disease with spondylolisthesis [M51.36, M43.16] Order(s):XR LUMBAR LIMITED 2V AP/LAT [[id number]] Order #: [id number] FUTURE oxyCODONE (ROXICODONE) 15 mg immediate release tabletTake 1 tablet by mouth every 6 hours as needed for pain for up to 7 days.Disp: 28 tabletRfl: 0 naloxone 4 mg/actuation nasal spray (NARCAN)Use 1 spray in one nostril as needed for overdose. May repeat every 2 to 3 min in alternating nostrils until medical assistance is availableDisp: 2 EachRfl: 0 Prescriptions as of 12/20/2022 - oxyCODONE (ROXICODONE) 15 mg immediate release tablet Take 1 tablet by mouth every 6 hours as needed for pain for up to 7 days. - naloxone 4 mg/actuation nasal spray (NARCAN) Use 1 spray in one nostril as needed for overdose. May repeat every 2 to 3 min in alternating nostrils until medical assistance is available - docusate sodium (COLACE) 100 mg capsule Take 1 capsule by mouth two times a day. - acetaminophen (TYLENOL) 500 mg tablet Take 2 tablets by mouth every 8 hours. - metoclopramide HCl (REGLAN) 10 mg tablet Take 10 mg by mouth as needed. - FEROSUL 325 mg (65 mg iron) tablet Take 1 tablet by mouth every 12 (twelve) hours. - hydrOXYzine HCl (ATARAX) 25 mg tablet TAKE 1 TABLET BY MOUTH FOUR TIMES DAILY NEEDED MUST LAST 30 DAYS - omeprazole (PRILOSEC) 20 mg capsule Take 1 capsule by mouth twice daily. - doxazosin (CARDURA) 4 mg tablet Take 4 mg by mouth. - irbesartan (AVAPRO) 300 mg tablet 1/2 tablet Orally Once a day for 60 days - pioglitazone (ACTOS) 30 mg tablet - bumetanide (BUMEX) 1 mg tablet Take 1 tablet by mouth once daily. - tamsulosin (FLOMAX) 0.4 mg Take 1 capsule by (more content not included)... [facility] (PODCCP) SUKHDEEP SIMENTAL ([id number]) 1965 Date Time Provider Department 12/18/22 DERICK ISABEL PODCCP During your visit today, we recorded the following information about you: Amaury Carreon 12/18/2022 1:52 PM Signed PATIENT INFORMATION Record ID: [id number] Patient Name: Sukhdeep [facility]: [facility] [place]: [facility] [place] Attending: Edd Mathew [facility]: [facility] INSTRUCTIONS SN to remind patient of next upcoming appointment date, time, location SN TRANSFER TO [facility] SURVEY INFORMATION Medical/Nurse Paper Baler: Amaury Calderón 1. Your discharge instructions are important in guiding you through the recovery process. Is there anything I could help you clarify on your discharge instructions? (Standard Question) No, no clarification needed 2. We encourage a follow up appointment with your physician. Do you have one scheduled? If not; what is the name of the doctor you should be seeing for your follow up care? (Standard Question) Yes 3. Many patients have concerns about their medications once they are home. Do you have any questions about getting or taking your medications? (Standard Question) No 4. Do you have any new or worsening symptoms? (Standard Question) Yes MA/SN Notes: Pt state that his hand is numb and is having extreme pain on his foot 09/03 Allergies As of Date: 12/18/2022 (No Known Allergies) Date Reviewed: 12/10/2022 Reviewed by: Yoli Guerin, RN - Fully Assessed Reason for Visit: Follow Up Phone Call [[id number]] Cmt: All Clear Prescriptions as of 12/18/2022 - docusate sodium (COLACE) 100 mg capsule Take 1 capsule by mouth two times a day. - acetaminophen (TYLENOL) 500 mg tablet Take 2 tablets by mouth every 8 hours. - oxyCODONE (ROXICODONE) 15 mg immediate release tablet Take 1 tablet by mouth every 3 hours as needed for pain for up to 7 days. - metoclopramide HCl (REGLAN) 10 mg tablet Take 10 mg by mouth as needed. - FEROSUL 325 mg (65 mg iron) tablet Take 1 tablet by mouth every 12 (twelve) hours. - hydrOXYzine HCl (ATARAX) 25 mg tablet TAKE 1 TABLET BY MOUTH FOUR TIMES DAILY NEEDED MUST LAST 30 DAYS - omeprazole (PRILOSEC) 20 mg capsule Take 1 capsule by mouth twice daily. - doxazosin (CARDURA) 4 mg tablet Take 4 mg by mouth. - irbesartan (AVAPRO) 300 mg tablet 1/2 tablet Orally Once a day for 60 days - pioglitazone (ACTOS) 30 mg tablet - bumetanide (BUMEX) 1 mg tablet Take 1 tablet by mouth once daily. - tamsulosin (FLOMAX) 0.4 mg Take 1 capsule by mouth once daily. - tizanidine HCl (ZANAFLEX ORAL) daily at bedtime. - traZODone (DESYREL) 150 mg tablet - simvastatin (ZOCOR) 10 mg tablet Take 1 tablet by mouth once daily. 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] 12/09/2013 12/07/2022 Corneal edema, unspecified [H18.20] 12/10/2013 12/07/2022 Anxiety [F41.9] 12/27/2021 Essential hypertension [I10] 02/02/2020 Essential tremor [G25.0] 11/21/2022 Gastroesophageal reflux disease [K21.9] 12/27/2021 History of pulmonary embolism [Z86.711] 01/05/2022 Morbid obesity (HCC) [E66.01] 12/27/2021 ELIDA (obstructive sleep apnea) [G47.33] 12/27/2021 Secondary hyperparathyroidism (HCC) [N25.81] 11/21/2022 11/21/2022 Type 2 diabetes mellitus without complications *02/02/2020 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 Status post lumbar spinal fusion [Z98.1] 12/07/2022 Stage 3 chronic kidney disease (HCC) [N18.30] 12/07/2022 CIRO (iron deficiency anemia) [D50.9] 12/07/2022 HLD (hyperlipidemia) [E78.5] 12/07/2022 BPH (benign prostatic hyperplasia) [N40.0] 12/07/2022 Obesity, Class III, BMI >= 40 [E66.01] 12/08/2022 Encounter Status:Closed by AMAURY CARREON on 12/18/22 [facility] CNPNon 12-14-2022 CNPN Telephone (NIQ) SUKHDEEP SIMENTAL ([id number]) 1965 M Date Time Provider Department 12/14/22 EDD MATHEW During your visit today, we recorded the following information about you: Moriah Ferguson 12/14/2022 2:29 PM Signed Received FMLA form by fax from patient's . Scanned to patient's chart for review and completion. Juan Pablo Nova RN 12/14/2022 2:36 PM Signed Printed for review. Juan Pablo Nova RN 12/14/2022 2:58 PM Signed Form completed. Awaiting signature. Abby Hernandez RN 12/17/2022 4:07 PM Addendum Forms completed and signed by provider. Faxed to number provided and and Sukhdeep notified via voice mail, as requested. Scanned into [employer]. Allergies As of Date: 12/14/2022 (No Known Allergies) Date Reviewed: 12/10/2022 Reviewed by: Yoli Guerin RN - Fully Assessed Reason for Visit: FMLA Paperwork [4181] Prescriptions as of 12/17/2022 - docusate sodium (COLACE) 100 mg capsule Take 1 capsule by mouth two times a day. - acetaminophen (TYLENOL) 500 mg tablet Take 2 tablets by mouth every 8 hours. - oxyCODONE (ROXICODONE) 15 mg immediate release tablet Take 1 tablet by mouth every 3 hours as needed for pain for up to 7 days. - metoclopramide HCl (REGLAN) 10 mg tablet Take 10 mg by mouth as needed. - FEROSUL 325 mg (65 mg iron) tablet Take 1 tablet by mouth every 12 (twelve) hours. - hydrOXYzine HCl (ATARAX) 25 mg tablet TAKE 1 TABLET BY MOUTH FOUR TIMES DAILY NEEDED MUST LAST 30 DAYS - omeprazole (PRILOSEC) 20 mg capsule Take 1 capsule by mouth twice daily. - doxazosin (CARDURA) 4 mg tablet Take 4 mg by mouth. - irbesartan (AVAPRO) 300 mg tablet 1/2 tablet Orally Once a day for 60 days - pioglitazone (ACTOS) 30 mg tablet - bumetanide (BUMEX) 1 mg tablet Take 1 tablet by mouth once daily. - tamsulosin (FLOMAX) 0.4 mg Take 1 capsule by mouth once daily. - tizanidine HCl (ZANAFLEX ORAL) daily at bedtime. - traZODone (DESYREL) 150 mg tablet - simvastatin (ZOCOR) 10 mg tablet Take 1 tablet by mouth once daily. 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] 12/09/2013 12/07/2022 Corneal edema, unspecified [H18.20] 12/10/2013 12/07/2022 Anxiety [F41.9] 12/27/2021 Essential hypertension [I10] 02/02/2020 Essential tremor [G25.0] 11/21/2022 Gastroesophageal reflux disease [K21.9] 12/27/2021 History of pulmonary embolism [Z86.711] 01/05/2022 Morbid obesity (HCC) [E66.01] 12/27/2021 ELIDA (obstructive sleep apnea) [G47.33] 12/27/2021 Secondary hyperparathyroidism (HCC) [N25.81] 11/21/2022 11/21/2022 Type 2 diabetes mellitus without complications *02/02/2020 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 Status post lumbar spinal fusion [Z98.1] 12/07/2022 Stage 3 chronic kidney disease (HCC) [N18.30] 12/07/2022 CIRO (iron deficiency anemia) [D50.9] 12/07/2022 HLD (hyperlipidemia) [E78.5] 12/07/2022 BPH (benign prostatic hyperplasia) [N40.0] 12/07/2022 Obesity, Class III, BMI >= 40 [E66.01] 12/08/2022 Encounter Status:Closed by ABBY HERNANDEZ on 12/17/22 [facility] 12-13-2022 CNPN Telephone (NSFRVW) SUKHDEEP SIMENTAL ([id number]) 1965 M Date Time Provider Department 12/13/22 [facility] During your visit today, we recorded the following information about you: Eric Goldberg Eva 12/13/2022 12:17 PM Signed Patient at [phone] is requesting a call back. He had back surgery on 12-07. He states for the past 2 days his right ring and little finger has been numb. Myrna Schrader PA-C 12/13/2022 12:23 PM Signed Spoke with patient at 12:22 PM on 12/13/2022. Over the past 2 days he developed numbness in the right ring and little fingers. Denies spreading of the numbness, pain, or weakness in the hand or arm. Discussed that this could be from positioning during surgery but likely not related to the lumbar surgery. Advised to keep an eye on it and if anything worsens or he develops weakness to give our office a carly. Myrna Schrader PA-C Allergies As of Date: 12/13/2022 (No Known Allergies) Date Reviewed: 12/10/2022 Reviewed by: Yoli Guerin RN - Fully Assessed Reason for Visit: post op update [Other] Prescriptions as of 12/13/2022 - docusate sodium (COLACE) 100 mg capsule Take 1 capsule by mouth two times a day. - acetaminophen (TYLENOL) 500 mg tablet Take 2 tablets by mouth every 8 hours. - oxyCODONE (ROXICODONE) 15 mg immediate release tablet Take 1 tablet by mouth every 3 hours as needed for pain for up to 7 days. - metoclopramide HCl (REGLAN) 10 mg tablet Take 10 mg by mouth as needed. - FEROSUL 325 mg (65 mg iron) tablet Take 1 tablet by mouth every 12 (twelve) hours. - hydrOXYzine HCl (ATARAX) 25 mg tablet TAKE 1 TABLET BY MOUTH FOUR TIMES DAILY NEEDED MUST LAST 30 DAYS - omeprazole (PRILOSEC) 20 mg capsule Take 1 capsule by mouth twice daily. - doxazosin (CARDURA) 4 mg tablet Take 4 mg by mouth. - irbesartan (AVAPRO) 300 mg tablet 1/2 tablet Orally Once a day for 60 days - pioglitazone (ACTOS) 30 mg tablet - bumetanide (BUMEX) 1 mg tablet Take 1 tablet by mouth once daily. - tamsulosin (FLOMAX) 0.4 mg Take 1 capsule by mouth once daily. - tizanidine HCl (ZANAFLEX ORAL) daily at bedtime. - traZODone (DESYREL) 150 mg tablet - simvastatin (ZOCOR) 10 mg tablet Take 1 tablet by mouth once daily. 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] 12/09/2013 12/07/2022 Corneal edema, unspecified [H18.20] 12/10/2013 12/07/2022 Anxiety [F41.9] 12/27/2021 Essential hypertension [I10] 02/02/2020 Essential tremor [G25.0] 11/21/2022 Gastroesophageal reflux disease [K21.9] 12/27/2021 History of pulmonary embolism [Z86.711] 01/05/2022 Morbid obesity (HCC) [E66.01] 12/27/2021 ELIDA (obstructive sleep apnea) [G47.33] 12/27/2021 Secondary hyperparathyroidism (HCC) [N25.81] 11/21/2022 11/21/2022 Type 2 diabetes mellitus without complications *02/02/2020 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 Status post lumbar spinal fusion [Z98.1] 12/07/2022 Stage 3 chronic kidney disease (HCC) [N18.30] 12/07/2022 CIRO (iron deficiency anemia) [D50.9] 12/07/2022 HLD (hyperlipidemia) [E78.5] 12/07/2022 BPH (benign prostatic hyperplasia) [N40.0] 12/07/2022 Obesity, Class III, BMI >= 40 [E66.01] 12/08/2022 Encounter Status:Closed by MYRNA SCHRADER on 12/13/22 [facility] SUKHDEEP SIMENTAL ([id number]) 1965 M Date Time Provider Department 12/12/22 BRITTANY CARR During your visit today, we recorded the following information about you: Brenda Alex 12/12/2022 9:36 AM Signed [email or web address] [id number] - [place] [address] [phone] - [phone] Pharmacist at [facility] wanted to inform the office that this patient already takes Percocet 10-325 every 6 hours, picked it up 13 days ago. They tried running the Percocet but his insurance will not cover both. Please call them back with new instructions. Brittany Carr PA-C 12/12/2022 9:45 AM Signed I called the pharmacy on 12/12/2022 at 9:40 AM. Insurance will not pay for the frequency of medication written. They will cover q12h. Prescription changed to oxycodone 15 mg 12h. Emily Rondon 12/12/2022 11:14 AM Signed Patient called stating pharmacy needs a prior authorization for oxycodone 15 mg. Juan Pablo Nova RN 12/12/2022 4:40 PM Signed Spoke with pharmacy and was informed that medication is approved. No prior authorization needed. Allergies As of Date: 12/12/2022 (No Known Allergies) Date Reviewed: 12/10/2022 Reviewed by: Yoli Guerin RN - Fully Assessed Reason for Visit: Medication Problem [65] Prescriptions as of 12/12/2022 - docusate sodium (COLACE) 100 mg capsule Take 1 capsule by mouth two times a day. - acetaminophen (TYLENOL) 500 mg tablet Take 2 tablets by mouth every 8 hours. - oxyCODONE (ROXICODONE) 15 mg immediate release tablet Take 1 tablet by mouth every 3 hours as needed for pain for up to 7 days. - metoclopramide HCl (REGLAN) 10 mg tablet Take 10 mg by mouth as needed. - FEROSUL 325 mg (65 mg iron) tablet Take 1 tablet by mouth every 12 (twelve) hours. - hydrOXYzine HCl (ATARAX) 25 mg tablet TAKE 1 TABLET BY MOUTH FOUR TIMES DAILY NEEDED MUST LAST 30 DAYS - omeprazole (PRILOSEC) 20 mg capsule Take 1 capsule by mouth twice daily. - doxazosin (CARDURA) 4 mg tablet Take 4 mg by mouth. - irbesartan (AVAPRO) 300 mg tablet 1/2 tablet Orally Once a day for 60 days - pioglitazone (ACTOS) 30 mg tablet - bumetanide (BUMEX) 1 mg tablet Take 1 tablet by mouth once daily. - tamsulosin (FLOMAX) 0.4 mg Take 1 capsule by mouth once daily. - tizanidine HCl (ZANAFLEX ORAL) daily at bedtime. - traZODone (DESYREL) 150 mg tablet - simvastatin (ZOCOR) 10 mg tablet Take 1 tablet by mouth once daily. 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] 12/09/2013 12/07/2022 Corneal edema, unspecified [H18.20] 12/10/2013 12/07/2022 Anxiety [F41.9] 12/27/2021 Essential hypertension [I10] 02/02/2020 Essential tremor [G25.0] 11/21/2022 Gastroesophageal reflux disease [K21.9] 12/27/2021 History of pulmonary embolism [Z86.711] 01/05/2022 Morbid obesity (HCC) [E66.01] 12/27/2021 ELIDA (obstructive sleep apnea) [G47.33] 12/27/2021 Secondary hyperparathyroidism (HCC) [N25.81] 11/21/2022 11/21/2022 Type 2 diabetes mellitus without complications *02/02/2020 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 Status post lumbar spinal fusion [Z98.1] 12/07/2022 Stage 3 chronic kidney disease (HCC) [N18.30] 12/07/2022 CIRO (iron deficiency anemia) [D50.9] 12/07/2022 HLD (hyperlipidemia) [E78.5] 12/07/2022 BPH (benign prostatic hyperplasia) [N40.0] 12/07/2022 Obesity, Class III, BMI >= 40 [E66.01] 12/08/2022 Encounter Status:Closed by JUAN PABLO NOVA on 12/12/22 [facility] Basic metabolic 2000 panelon 12-11-2022 Anion gap [Moles/Vol] 8 mmol/L Low 11-12 [facility] Comment on above: Order Comment: Speci men Type: BLOOD SPECIMEN Ordering Facility: [facility] Address: [address] [place] [address] Performed By: #### 2 4321-2 #### [facility] CLIA [id number] [address] [place] [address] [place] Calcium [Mass/Vol] 8.7 mg/dL Normal 8.5-10.2 [facility] Comment on above: Order Comment: Speci men Type: BLOOD SPECIMEN Ordering Facility: [facility] Address: [address] [place] [address] Performed By: #### 2 4321-2 #### [facility] CLIA [id number] [address] [place], [place] [address] [place] Chloride [Moles/Vol] 106 mmol/L High 97-105 [facility] Comment on above: Order Comment: Speci men Type: BLOOD SPECIMEN Ordering Facility: [facility] Address: [address] [place] [address] Performed By: #### 2 4321-2 #### [facility] CLIA [id number] [address] [place], [place] [address] [place] CO2 [Moles/Vol] 29 mmol/L Normal 22-30 [facility] Comment on above: Order Comment: Speci men Type: BLOOD SPECIMEN Ordering Facility: [facility] Address: [address] [place] [address] Performed By: #### 2 4321-2 #### [facility] CLIA [id number] [address] [place] [address] [place] Creatinine [Mass/Vol] 1.17 mg/dL Normal 0.73-1.22 [facility] Comment on above: Order Comment: Speci men Type: BLOOD SPECIMEN Ordering Facility: [facility] Address: [address] [place] [address] Performed By: #### 2 4321-2 #### [facility] CLIA [id number] [address] [place] [address] [place] Creatinine and Glomerular filtration rate.predicted panel (S/P/Bld) 72 mL/min/1.73m??? Normal >=60 [facility] Comment on above: Order Comment: Speci men Type: BLOOD SPECIMEN Ordering Facility: [facility] Address: [address] [place] [address] Result Comment: Leah mated Glomerular Filtration Rate (eGFR) is calculated using the 2020 CKD-EPI creatinine equation. This equation utilizes serum creatinine, sex, and age as parameters. The creatinine assay has traceable calibration to isotope dilution-mass spectrometry. Refer to KDIGO guidelines for clinical interpretation. In patients with unstable renal function, e.g. those with acute kidney injury, the eGFR may not accurately reflect actual GFR. Performed By: #### 2 4321-2 #### [facility] [id number] [address] [place], [place] [address] [place] Glucose [Mass/Vol] 98 mg/dL Normal 74-99 [facility] Comment on above: Order Comment: Shahrzad dumont Type: BLOOD SPECIMEN Ordering Facility: [facility] Address: [address] [place] [address] Result Comment: The [place] [employer] (ADA) provides guidance for cutoff values for fasting glucose and random glucose. The ADA defines fasting as no caloric intake for at least 8 hours. Fasting plasma glucose results between 100 to 125 mg/dL indicate increased risk for diabetes (prediabetes). Fasting plasma glucose results greater than or equal to 126 mg/dL meet the criteria for diagnosis of diabetes. In the absence of unequivocal hyperglycemia, results should be confirmed by repeat testing. In a patient with classic symptoms of hyperglycemia or hyperglycemic crisis, random plasma glucose results greater than or equal to 200 mg/dL meet the criteria for diagnosis of diabetes. Reference: Standards of Medical Care in Diabetes 2016, [place] [employer]. Diabetes Care. 2016.39(Suppl 1). Performed By: #### 2 4321-2 #### [facility] [id number] [address] [place], [place] [address] [place] Potassium [Moles/Vol] 4.8 mmol/L Normal 3.7-5.1 [facility] Comment on above: Order Comment: Shahrzad dumont Type: BLOOD SPECIMEN Ordering Facility: [facility] Address: [address] [place] [address] Performed By: #### 2 4321-2 #### [facility] [id number] [address] [place], [place] [address] [place] Sodium [Moles/Vol] 143 mmol/L Normal 136-144 [facility] Comment on above: Order Comment: Shahrzad dumont Type: BLOOD SPECIMEN Ordering Facility: [facility] Address: [address] [place] [address] Performed By: #### 2 4321-2 #### [facility] CLIA [id number] [address] [place], [place] [address] [place] Urea nitrogen [Mass/Vol] 13 mg/dL Normal 9-24 [facility] Comment on above: Order Comment: Speci men Type: BLOOD SPECIMEN Ordering Facility: [facility] Address: [address] [place] [address] Performed By: #### 2 4321-2 #### [facility] [place] [id number] [address] [place], [place] [address] [facility] [place] CASE MANAGEMon 12-11-2022 CASE MANAGEM HNO ID: [id number] Author: Gloria Toro RN Service: ? Author Type: Registered Nurse Type: Care Mgt Progress Note Filed: 12/11/2022 3:26 PM Note Text: CARE MANAGEMENT PROGRESS NOTE SERVICE DATE: 12/11/2022 SERVICE TIME: 3:26 pm LOS: 4 days No further skilled PT / OT needed at [place]. SIGNATURE: Gloria Toro RN PATIENT NAME: Sukhdeep Simental DATE: December 11, 2022 TIME: 3:25 PM PAGER/CONTACT #: [phone] Normal [facility] CBC panel Auto (Bld)on 12-11 Erythrocyte distribution width (RBC) [Ratio] 12.5 % Normal 11.5-15.0 [facility] Comment on above: Order Comment: Speci men Type: BLOOD SPECIMEN Ordering Facility: [facility] Address: [address] [place] [address] Performed By: #### 5 8410-2 #### [facility] [place] [id number] [address] [place], [place] [address] [place] Hematocrit (Bld) [Volume fraction] 34.6 % Low 39.0-51.0 [facility] Comment on above: Order Comment: Speci men Type: BLOOD SPECIMEN Ordering Facility: [facility] Address: [address] [place] [address] Performed By: #### 5 8410-2 #### [facility] [place] [id number] [address] [place] [address] [place] Hemoglobin (Bld) [Mass/Vol] 11.7 g/dL Low 13.0-17.0 [facility] Comment on above: Order Comment: Speci men Type: BLOOD SPECIMEN Ordering Facility: [facility] Address: [address] [place] [address] Performed By: #### 5 8410-2 #### [facility] CLIA [id number] [address] [place] [address] [place] MCH (RBC) [Entitic mass] 32.0 pg Normal 26.0-34.0 [facility] Comment on above: Order Comment: Speci men Type: BLOOD SPECIMEN Ordering Facility: [facility] Address: [address] [place] [address] Performed By: #### 5 8410-2 #### [facility] CLIA [id number] [address] [place] [address] [place] MCHC (RBC) [Mass/Vol] 33.8 g/dL Normal 30.5-36.0 [facility] Comment on above: Order Comment: Speci men Type: BLOOD SPECIMEN Ordering Facility: [facility] Address: [address] [place] [address] Performed By: #### 5 8410-2 #### [facility] CLIA [id number] [address] [place] [address] [place] MCV (RBC) [Entitic vol] 94.5 fL Normal 80.0-100.0 [facility] Comment on above: Order Comment: Speci men Type: BLOOD SPECIMEN Ordering Facility: [facility] Address: [address] [place] [address] Performed By: #### 5 8410-2 #### [facility] CLIA [id number] [address] [place] [address] [place] Nucleated RBC (Bld) [#/Vol] 10*3/uL Normal <0.01 [facility] Comment on above: Order Comment: Speci men Type: BLOOD SPECIMEN Ordering Facility: [facility] Address: [address] [place] [address] Performed By: #### 5 8410-2 #### [facility] CLIA [id number] [address] [place] [address] [place] Platelet mean volume (Bld) [Entitic vol] 9.4 fL Normal 9.0-12.7 [facility] Comment on above: Order Comment: Speci men Type: BLOOD SPECIMEN Ordering Facility: [facility] Address: [address] [place] [address] Performed By: #### 5 8410-2 #### [facility] CLIA [id number] [address] [place] [address] [place] Platelets (Bld) [#/Vol] 196 10*3/uL Normal 150-400 [facility] Comment on above: Order Comment: Speci men Type: BLOOD SPECIMEN Ordering Facility: [facility] Address: [address] [place] [address] Performed By: #### 5 8410-2 #### [facility] IA [id number] [address] [place] [address] [place] RBC (Bld) [#/Vol] 3.66 10*6/uL Low 4.20-6.00 [facility] Comment on above: Order Comment: Speci men Type: BLOOD SPECIMEN Ordering Facility: [facility] Address: [address] [place] [address] Performed By: #### 5 8410-2 #### [facility] IA [id number] [address] [place] [address] [place] WBC (Bld) [#/Vol] 9.04 10*3/uL Normal 3.70-11.00 [facility] Comment on above: Order Comment: Speci men Type: BLOOD SPECIMEN Ordering Facility: [facility] Address: [address] [place] [address] Performed By: #### 5 8410-2 #### [facility] CLIA [id number] [address] [place] [address] OF [place] CNDSon 12-11-2022 CNDS HNO ID: [id number] Author: Brittany Carr PA-C Service: Neurosurgery Author Type: Physician Paper Baler Type: Discharge Summary Filed: 12/11/2022 10:38 AM Note Text: Attestation signed by Edd Mathew MD at 12/11/2022 11:33 AM Edd Mathew MD DISCHARGE SUMMARY PATIENT NAME: Sukhdeep Simental Code Status: Not on file Highest Readmission Risk Score: 11 The 30 day readmissions risk score is derived from an internally validated risk model which evaluates patient level characteristics, utilization history, medication orders and lab results up until the day of discharge. Patients with a score of 40 or above are considered highest risk for readmission. Specific patient level drivers will be listed at the bottom of the summary. Admission Information Admission Information ADMIT DATE: 12/07/2022 DISCHARGE DATE: 12/11/2022 MY DOCTORS AND MEDICAL TEAM: My Main Hospital Doctor: Edd Mathew MD Primary Care Provider: Derick Isabel MD My Medical Team Members: Treatment Team: Attending Provider: Edd Mathew MD Consulting: Lulu Oviedo MD MY CONDITION AT DISCHARGE: Stable REASON I WAS IN THE HOSPITAL: L2-S1 revision instrumented fusion, L2/3, L3/4 TLIF SUMMARY OF WHAT HAPPENED WHILE I WAS IN THE HOSPITAL: You were brought to the OR as scheduled on 12/07/2022 for a L2-S1 revision instrumented fusion, L2/3, L3/[address] Mathew. Post-operatively you were brought to PACU and subsequently transferred to a regular nursing floor in stable condition. Your pain was controlled on a combination of IV and oral pain medication. Physical and occupational therapy evaluated you and thought you fit for discharge home. You were discharged home on 12/11/2022 with prescriptions for oxycodone and Tylenol for pain control and colace for constipation. OTHER PROBLEMS/DIAGNOSIS: Principal Problem: Status post lumbar spinal fusion Active Problems: Anxiety Essential hypertension Gastroesophageal reflux disease History of pulmonary embolism Morbid obesity (HCC) ELIDA (obstructive sleep apnea) Type 2 diabetes mellitus without complications (HCC) Lumbar adjacent segment disease with spondylolisthesis Stage 3 chronic kidney disease (HCC) CIRO (iron deficiency anemia) HLD (hyperlipidemia) BPH (benign prostatic hyperplasia) Obesity, Class III, BMI >= 40 Resolved Problems: * No resolved hospital problems. * OPERATIONS PERFORMED WHILE IN THE HOSPITAL: 1. L2-S1 revision instrumented fusion 2. L2/3, L3/4 TLIF IMPORTANT TEST/PROCEDURES: No procedures performed TEST RESULTS NOT AVAILABLE AT THIS TIME: No pending results Discharge Disposition Discharge Disposition: Home With Self Care Activity When You Leave the Hospital Avoid activities or extremely hot conditions that may cause you to perspire Do not bend over at the waist to lift heavy objects Lifting is restricted to: 10 lbs May bathe and shower Okay to shower, do not submerge the incision No driving for: 2 weeks or while on narcotic pain medication No walking restrictions Diet Instructions After general anesthetic, your stomach may be sensitive. Begin slowly by drinking water, then clear liquids, and then a light meal Drink 6 to 8 glasses of fluids per day Resume your pre-hospital diet For Pain When You Leave the Hospital Apply a covered cold pack to the area Continue taking previously prescribed pain medications as directed If you become constipated, you may use any nbfd-brm-zctounw treatment such as Milk of Magnesia, Sennakot, Prune Juice, Suppositories, etc. in addition to the stool softener/fiber supplement No alcohol or driving while on pain medication Use the dispensed medication (see prescription) You should use an lgyl-sei-tvnvyib stool softener (Docusate sodium) and/or a fiber supplement (Metamucil, Fiber Con) every day while taking prescribed pain medication Wound/Surgical Site Care Apply ice packs as needed It is normal to have swelling, mild bruising, blood on the steri-strips, numbness and firmness around the incision Leave open to air Wash your hands frequently, especially before touching your incision, after using restroom and before eating Call Your Doctor If There is severe pain at the operative site You have lightheadedness, fainting, or confusion You have pain and swelling in your legs, especially if it is only on one side and not the other You have persistent or heavy bleeding You have redness, swelling, pus or drainage from the wound You have swollen glands or cold and clammy skin Your temperature is greater than 101F Follow Up Appointments Follow-Up Appointment 12/20/2022 2:30 PM (Arrive by 2:00 PM) When: In 2 weeks Patient/Parents to call for appointment?: (more content not included)... [facility] CONSULTon 12-11-2022 CONSULT HNO ID: [id number] Author: Jaiden Rucker PA-C Service: Pain Management Author Type: Physician Paper Baler Type: Consults Filed: 12/11/2022 8:09 AM Note Text: Attestation signed by Nila Cramer MD at 12/11/2022 3:42 PM I saw and evaluated the patient. Discussed with the pa and agree with scarlet's findings and plan as documented in the pa's note. INPATIENT PAIN MANAGEMENT CONSULT Patient Name: Sukhdeep Simental SERVICE DATE: December 11, 2022 SERVICE TIME: 7:59 AM PRIMARY SERVICE: Ortho and Spine Consult by Dr Mathew for acute post operative pain INTERVAL HPI: Is the patient having any pain? 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 PAST MEDICAL HISTORY Diagnosis Date Central corneal ulcer Herpes simplex iridocyclitis Hypertension PAST SURGICAL HISTORY Procedure Laterality Date PAST SURGICAL HISTORY OF knee replacment right PAST SURGICAL HISTORY OF kidney stones removed FAMILY HISTORY Problem Relation Age of Onset Cancer Father Diabetes Mother Detached Retina Maternal Uncle Hypertension Maternal Uncle Social History Tobacco Use Smoking status: Never Smokeless tobacco: Never Vaping Use Vaping Use: Never used Substance Use Topics Alcohol use: No Drug use: No MEDICATIONS: Current Facility-Administered Medications Medication Dose Route Frequency simvastatin 10 mg tab(s) (ZOCOR) 10 mg ORAL AT BEDTIME tamsulosin 0.4 mg cap(s) (FLOMAX) 0.4 mg ORAL DAILY doxazosin 4 mg tab(s) (CARDURA) 4 mg ORAL DAILY NaCl 0.9% iv flush bag 20 mL INTRAVENOUS PRN lactated ringers iv infusion 75 mL/hr INTRAVENOUS CONTINUOUS docusate sodium 100 mg cap(s) (COLACE) 100 mg ORAL BID valsartan 80 mg tab(s) (DIOVAN) 80 mg ORAL DAILY hydrOXYzine HCl 25 mg tab(s) (ATARAX) 25 mg ORAL q 6 H PRN ferrous sulfate 325 mg tab(s) 325 mg ORAL DAILY traZODone 150 mg tab(s) (DESYREL) 150 mg ORAL AT BEDTIME acetaminophen 1,000 mg tab(s) (TYLENOL) 1,000 mg ORAL q 8 H polyethylene glycol 3350 17 g packet 17 g ORAL DAILY dextrose 40 % 15 g 15 g ORAL PRN Or glucagon 1 mg injection 1 mg INTRAMUSCULAR PRN Or dextrose 10% iv bolus 12.5 g INTRAVENOUS PRN insulin lispro injection (rapid acting) (HumaLOG) SUBCUTANEOUS w MEALS AND HS bisacodyl EC 10 mg tab(s) (DULCOLAX) 10 mg ORAL DAILY PRN heparin 5,000 Units injection 5,000 Units SUBCUTANEOUS q 12 H aluminum-magnesium hydroxide-simethicone 200-200-20 mg/5 mL 30 mL 30 mL ORAL q 6 H PRN omeprazole 20 mg cap(s) (PriLOSEC) 20 mg ORAL 2 times per day naloxone 0.1 mg injection (NARCAN) 0.1 mg INTRAVENOUS q 2 MIN PRN tiZANidine 4 mg tab(s) (ZANAFLEX) 4 mg ORAL TID oxyCODONE IR 10-15 mg tab(s) (ROXICODONE) 10-15 mg ORAL q 3 H PRN metoclopramide HCl 10 mg injection (REGLAN) 10 mg INTRAVENOUS q 6 H PRN keTORolac 15 mg injection (Toradol) 15 mg INTRAVENOUS q 6 H PRN PHYSICAL EXAM: Blood pressure 156/83, pulse 100, temperature 36.8 ?C (98.3 ?F), temperature source Oral, resp. rate 16, height 175.3 cm (5' 9 ), weight 122.9 kg (271 lb), SpO2 100 %. GENERAL: Alert, no distress, cooperative SKIN: Skin color, texture, turgor normal. No rashes or lesions. HEAD/SINUSES: No significant findings EYES: PERRLA, EOMI Heart: RRR without murmur, gallop, or rubs. No ectopy Lungs: lungs clear to auscultation no wheezing or rhonchi Abdomen: Abdomen soft, non-tender. Bowel sounds normal. No masses, organomegaly EXTREMITIES: Extremities normal, no deformities, edema, clubbing or skin discoloration. NEURO: Motor and Sensory intact DATA: Diagnostic tests reviewed for today's visit: Most recent labs Glucose (mg/dL) Date Value 12/11/2022 98 Potassium (mmol/L) Date Value 12/11/2022 4.8 Sodium (mmol/L) Date Value 12/11/2022 143 Chloride (mmol/L) Date Value 12/11/2022 106 CO2 (mmol/L) Date Value 12/11/2022 29 Creatinine (mg/dL) Date Value 12/11/2022 1.17 BUN (mg/dL) Date Value 12/11/2022 13 Anion Gap (mmol/L) Date Value 12/11/2022 8 Calcium, Total (mg/dL) Date Value 12/11/2022 8.7 WBC (k/uL) Date Value 12/11/2022 9.04 RBC (m/uL) Date Value 12/11/2022 3.66 (L) Hemoglobin (g/dL) Date Value 12/11/2022 11.7 (L) Hematocrit (%) Date Value 12/11/2022 34.6 (L) MCV (fL) Date Saniya (more content not included)... [facility] NURSING PROGon 12-11-2022 NURSING PROG HNO ID: [id number] Author: Erlinda Bui, RN Service: Nursing Author Type: Advance Clinical Nurse Type: Nursing Progress Note Filed: 12/11/2022 1:43 PM Note Text: Other: Reviewed discharge instructions for spine with patient and as follows:showering and care of incision. Patient instructed to change dressing pod#4 and as needed postop. If drainage is greater than 7 days and the character of the drainage changes to call surgeon immediately. Patient instructed if any drainage from the incision they may not shower. No tub or pools till cleared by surgeon. Discussed with patient if fever greater than 101 and interventions, use of incentive spirometry at home, use of ice no heat, SANDS of DVT and PE and interventions, wearing protocol for romaine hose/ rohan wrap compression, good nutrition for healing, good body mechanics for moving and sitting, no chairs that have not support to the spine, no abdominal lying, no driving till cleared by the surgeon, no back exercises,the only exercises that patient should be doing is isometrics and walking as much as possible, no use of nicotine of any kind and no use of NSAID unless cleared by the surgeon , these things can interfere with bone and wound healing,patient also instructed if they have any acute loss of motor function in legs or loss of bowel or bladder they are to call the surgeon immediately if unable to reach go to nearest emergency room. Reviewed use of narcotics, constipation,driving. Patient aware to call if any questions or concerns. Patient given handouts to support the above information. Patient verbalizing understanding of instructions. [facility] Basic metabolic 2000 panelon 12-10-2022 Anion gap [Moles/Vol] 7 mmol/L Low -18 [facility] Comment on above: Order Comment: Speci men Type: BLOOD SPECIMEN Ordering Facility: [facility] Address: [address] [place] [address] [place] [address] Performed By: #### 2 4321-2 #### [facility] CLIA [id number] [address] [place] [address] [place] Calcium [Mass/Vol] 8.3 mg/dL Low 8.5-10.2 [facility] Comment on above: Order Comment: Speci men Type: BLOOD SPECIMEN Ordering Facility: [facility] Address: [address] [place] [address] Performed By: #### 2 4321-2 #### [facility] CLIA [id number] [address] [place] [address] [place] Chloride [Moles/Vol] 107 mmol/L High 97-105 [facility] Comment on above: Order Comment: Speci men Type: BLOOD SPECIMEN Ordering Facility: [facility] Address: [address] [place] [address] Performed By: #### 2 4321-2 #### [facility] CLIA [id number] [address] [place] [address] [place] CO2 [Moles/Vol] 26 mmol/L Normal 22-30 [facility] Comment on above: Order Comment: Speci men Type: BLOOD SPECIMEN Ordering Facility: [facility] Address: [address] [place] [address] Performed By: #### 2 4321-2 #### [facility] CLIA [id number] [address] [place] [address] [place] Creatinine [Mass/Vol] 1.16 mg/dL Normal 0.73-1.22 [facility] Comment on above: Order Comment: Speci men Type: BLOOD SPECIMEN Ordering Facility: [facility] Address: [address] [place] [address] Performed By: #### 2 4321-2 #### [facility] CLIA [id number] [address] [place] [address] [place] Creatinine and Glomerular filtration rate.predicted panel (S/P/Bld) 73 mL/min/1.73m??? Normal >=60 [facility] Comment on above: Order Comment: Speci men Type: BLOOD SPECIMEN Ordering Facility: [facility] Address: [address] [place] [address] Result Comment: Leah mated Glomerular Filtration Rate (eGFR) is calculated using the 2020 CKD-EPI creatinine equation. This equation utilizes serum creatinine, sex, and age as parameters. The creatinine assay has traceable calibration to isotope dilution-mass spectrometry. Refer to KDIGO guidelines for clinical interpretation. In patients with unstable renal function, e.g. those with acute kidney injury, the eGFR may not accurately reflect actual GFR. Performed By: #### 2 4321-2 #### [facility] IA [id number] [address] [place] [address] [place] Glucose [Mass/Vol] 129 mg/dL High 74-99 [facility] Comment on above: Order Comment: Shahrzad dumont Type: BLOOD SPECIMEN Ordering Facility: [facility] Address: [address] [place] [address] Result Comment: The [place] [employer] (ADA) provides guidance for cutoff values for fasting glucose and random glucose. The ADA defines fasting as no caloric intake for at least 8 hours. Fasting plasma glucose results between 100 to 125 mg/dL indicate increased risk for diabetes (prediabetes). Fasting plasma glucose results greater than or equal to 126 mg/dL meet the criteria for diagnosis of diabetes. In the absence of unequivocal hyperglycemia, results should be confirmed by repeat testing. In a patient with classic symptoms of hyperglycemia or hyperglycemic crisis, random plasma glucose results greater than or equal to 200 mg/dL meet the criteria for diagnosis of diabetes. Reference: Standards of Medical Care in Diabetes 2016, [place] [employer]. Diabetes Care. 2016.39(Suppl 1). Performed By: #### 2 4321-2 #### [facility] IA [id number] [address] [place], [place] [address] [place] Potassium [Moles/Vol] 4.3 mmol/L Normal 3.7-5.1 [facility] Comment on above: Order Comment: Shahrzad men Type: BLOOD SPECIMEN Ordering Facility: [facility] Address: [address] [place] [address] Performed By: #### 2 4321-2 #### [facility] IA [id number] [address] [place], [place] [address] [place] Sodium [Moles/Vol] 140 mmol/L Normal 136-144 [facility] Comment on above: Order Comment: Speci men Type: BLOOD SPECIMEN Ordering Facility: [facility] Address: [address] [place] [address] Performed By: #### 2 4321-2 #### [facility] CLIA [id number] [address] [place] [address] [place] Urea nitrogen [Mass/Vol] 16 mg/dL Normal 9-24 [facility] Comment on above: Order Comment: Speci men Type: BLOOD SPECIMEN Ordering Facility: [facility] Address: [address] [place] [address] Performed By: #### 2 4321-2 #### [facility] CLIA [id number] [address] [place] [address] [place] CBC panel Auto (Bld)on 12-10 Erythrocyte distribution width (RBC) [Ratio] 12.6 % Normal 11.5-15.0 [facility] Comment on above: Order Comment: Speci men Type: BLOOD SPECIMEN Ordering Facility: [facility] Address: [address] [place] [address] Performed By: #### 5 8410-2 #### [facility] CLIA [id number] [address] [place] [address] [place] Hematocrit (Bld) [Volume fraction] 32.7 % Low 39.0-51.0 [facility] Comment on above: Order Comment: Speci men Type: BLOOD SPECIMEN Ordering Facility: [facility] Address: [address] [place] [address] Performed By: #### 5 8410-2 #### [facility] CLIA [id number] [address] [place] [address] [place] Hemoglobin (Bld) [Mass/Vol] 10.9 g/dL Low 13.0-17.0 [facility] Comment on above: Order Comment: Speci men Type: BLOOD SPECIMEN Ordering Facility: [facility] Address: [address] [place] [address] Performed By: #### 5 8410-2 #### [facility] CLIA [id number] [address] [place] [address] [place] MCH (RBC) [Entitic mass] 31.5 pg Normal 26.0-34.0 [facility] Comment on above: Order Comment: Speci men Type: BLOOD SPECIMEN Ordering Facility: [facility] Address: [address] [place] [address] Performed By: #### 5 8410-2 #### [facility] IA [id number] [address] [place] [address] [place] MCHC (RBC) [Mass/Vol] 33.3 g/dL Normal 30.5-36.0 [facility] Comment on above: Order Comment: Speci men Type: BLOOD SPECIMEN Ordering Facility: [facility] Address: [address] [place] [address] Performed By: #### 5 8410-2 #### [facility] IA [id number] [address] [place] [address] [place] MCV (RBC) [Entitic vol] 94.5 fL Normal 80.0-100.0 [facility] Comment on above: Order Comment: Speci men Type: BLOOD SPECIMEN Ordering Facility: [facility] Address: [address] [place] [address] Performed By: #### 5 8410-2 #### [facility] IA [id number] [address] [place] [address] [place] Nucleated RBC (Bld) [#/Vol] 10*3/uL Normal <0.01 [facility] Comment on above: Order Comment: Speci men Type: BLOOD SPECIMEN Ordering Facility: [facility] Address: [address] [place] [address] Performed By: #### 5 8410-2 #### [facility] IA [id number] [address] [place] [address] [place] Platelet mean volume (Bld) [Entitic vol] 9.6 fL Normal 9.0-12.7 [facility] Comment on above: Order Comment: Speci men Type: BLOOD SPECIMEN Ordering Facility: [facility] Address: [address] [place] [address] Performed By: #### 5 8410-2 #### [facility] CLIA [id number] [address] [place], [place] [address] [place] Platelets (Bld) [#/Vol] 157 10*3/uL Normal 150-400 [facility] Comment on above: Order Comment: Speci men Type: BLOOD SPECIMEN Ordering Facility: [facility] Address: [address] [place] [address] Performed By: #### 5 8410-2 #### [facility] IA [id number] [address] [place] [address] [place] RBC (Bld) [#/Vol] 3.46 10*6/uL Low 4.20-6.00 [facility] Comment on above: Order Comment: Speci men Type: BLOOD SPECIMEN Ordering Facility: [facility] Address: [address] [place] [address] Performed By: #### 5 8410-2 #### [facility] IA [id number] [address] [place], [place] [address] [place] WBC (Bld) [#/Vol] 8.16 10*3/uL Normal 3.70-11.00 [facility] Comment on above: Order Comment: Speci men Type: BLOOD SPECIMEN Ordering Facility: [facility] Address: [address] [place] [address] Performed By: #### 5 8410-2 #### [facility] IA [id number] [address] [place], [place] [address] [place] THERAPY NTon 12-10-2022 THERAPY NT HNO ID: [id number] Author: Odilon Madrid PT Service: Physical Therapy Author Type: Physical Therapist Type: Therapy (PT/OT/Speech/Resp) Filed: 12/10/2022 11:20 AM Note Text: PHYSICAL THERAPY MISSED VISIT SERVICE DATE: 12/10/2022 SERVICE TIME: 1109 to 1111 ROOM: [place] [address] Patient not seen due to Refused Treatment. Pt reported pain levels are too high to attempt therapy. Will f/u as schedule allows and pain improves. SIGNATURE: Odilon Madrid PT PATIENT NAME: Sukhdeep Simental DATE: December 10, 2022 TIME: 11:20 AM [facility] ALLIED HEALTHon 12-09-2022 ALLIED HEALTH HNO ID: [id number] Author: Akila Huitron RT(R) Service: Radiology Author Type: Technologist Type: Allied Health Filed: 12/09/2022 2:02 PM Note Text: Radiology Service Progress Note PATIENT NAME: Sukhdeep Simental DATE OF SERVICE: December 09, 2022 TIME: 2:01 PM PATIENT IDENTITY VERIFICATION COMPLETED USING TWO (2) IDENTIFIERS: Name and Date of confirmed by patient verbally and Name and Date of confirmed by identification band. FALL SCREENING: Has the patient had 2 falls in the last year or 1 fall with injury or currently using an Ambulatory Assistive Device (Walker, Cane, Wheelchair, Crutches, etc.)? Inpatient: Screened on floor PATIENT GENDER DATA: Male PATIENT RELEVANT IMPLANT DATA REVIEWED: Not Applicable RADIOLOGY DEPARTMENT: General X-ray: Exam(s) Completed: Spine X-Ray(s): Lumbar AP / LAT PERIPHERAL IV DATA: Not applicable SIGNED BY: RT Jose(R) December 09, 2022 2:01 PM [facility] Basic metabolic 2000 panelon 12-09-2022 Anion gap [Moles/Vol] 6 mmol/L Low -18 [facility] Comment on above: Order Comment: Speci men Type: BLOOD SPECIMEN Ordering Facility: [facility] Address: [address] [place] [address] Performed By: #### 2 4321-2 #### [facility] CLIA [id number] [address] [place], [place] [address] [place] Calcium [Mass/Vol] 8.5 mg/dL Normal 8.5-10.2 [facility] Comment on above: Order Comment: Speci men Type: BLOOD SPECIMEN Ordering Facility: [facility] Address: [address] [place] [address] Performed By: #### 2 4321-2 #### [facility] CLIA [id number] [address] [place] [address] [place] Chloride [Moles/Vol] 106 mmol/L High 97-105 [facility] Comment on above: Order Comment: Speci men Type: BLOOD SPECIMEN Ordering Facility: [facility] Address: [address] [place] [address] Performed By: #### 2 4321-2 #### [facility] CLIA [id number] [address] [place] [address] [place] CO2 [Moles/Vol] 30 mmol/L Normal 22-30 [facility] Comment on above: Order Comment: Speci men Type: BLOOD SPECIMEN Ordering Facility: [facility] Address: [address] [place] [address] Performed By: #### 2 4321-2 #### [facility] CLIA [id number] [address] [place] [address] [place] Creatinine [Mass/Vol] 1.34 mg/dL High 0.73-1.22 [facility] Comment on above: Order Comment: Speci men Type: BLOOD SPECIMEN Ordering Facility: [facility] Address: [address] [place] [address] Performed By: #### 2 4321-2 #### [facility] CLIA [id number] [address] [place] [address] [place] Creatinine and Glomerular filtration rate.predicted panel (S/P/Bld) 61 mL/min/1.73m??? Normal >=60 [facility] Comment on above: Order Comment: Speci men Type: BLOOD SPECIMEN Ordering Facility: [facility] Address: [address] [place] [address] Result Comment: Leah mated Glomerular Filtration Rate (eGFR) is calculated using the 2020 CKD-EPI creatinine equation. This equation utilizes serum creatinine, sex, and age as parameters. The creatinine assay has traceable calibration to isotope dilution-mass spectrometry. Refer to KDIGO guidelines for clinical interpretation. In patients with unstable renal function, e.g. those with acute kidney injury, the eGFR may not accurately reflect actual GFR. Performed By: #### 2 4321-2 #### [facility] CLIA [id number] [address] [place] [address] [place] Glucose [Mass/Vol] 105 mg/dL High 74-99 [facility] Comment on above: Order Comment: Shahrzad dumont Type: BLOOD SPECIMEN Ordering Facility: [facility] Address: [address] [place] [address] Result Comment: The [place] [employer] (ADA) provides guidance for cutoff values for fasting glucose and random glucose. The ADA defines fasting as no caloric intake for at least 8 hours. Fasting plasma glucose results between 100 to 125 mg/dL indicate increased risk for diabetes (prediabetes). Fasting plasma glucose results greater than or equal to 126 mg/dL meet the criteria for diagnosis of diabetes. In the absence of unequivocal hyperglycemia, results should be confirmed by repeat testing. In a patient with classic symptoms of hyperglycemia or hyperglycemic crisis, random plasma glucose results greater than or equal to 200 mg/dL meet the criteria for diagnosis of diabetes. Reference: Standards of Medical Care in Diabetes 2016, [place] [employer]. Diabetes Care. 2016.39(Suppl 1). Performed By: #### 2 4321-2 #### [facility] CLIA [id number] [address] [place] [address] [place] Potassium [Moles/Vol] 3.9 mmol/L Normal 3.7-5.1 [facility] Comment on above: Order Comment: Shahrzad dumont Type: BLOOD SPECIMEN Ordering Facility: [facility] Address: [address] [place] [address] Performed By: #### 2 4321-2 #### [facility] CLIA [id number] [address] [place] [address] [place] Sodium [Moles/Vol] 142 mmol/L Normal 136-144 [facility] Comment on above: Order Comment: Shahrzad dumont Type: BLOOD SPECIMEN Ordering Facility: [facility] Address: [address] [place] [address] Performed By: #### 2 4321-2 #### [facility] CLIA [id number] [address] [place] [address] [place] Urea nitrogen [Mass/Vol] 18 mg/dL Normal 9-24 [facility] Comment on above: Order Comment: Shahrzad dumont Type: BLOOD SPECIMEN Ordering Facility: [facility] Address: [address] [place] [address] Performed By: #### 2 4321-2 #### [facility] CLIA [id number] [address] [place] [address] [place] CBC panel Auto (Bld)on 12-09 Erythrocyte distribution width (RBC) [Ratio] 12.7 % Normal 11.5-15.0 [facility] Comment on above: Order Comment: Speci men Type: BLOOD SPECIMEN Ordering Facility: [facility] Address: [address] [place] [address] Performed By: #### 5 8410-2 #### [facility] CLIA [id number] [address] [place] [address] [place] Hematocrit (Bld) [Volume fraction] 34.1 % Low 39.0-51.0 [facility] Comment on above: Order Comment: Speci men Type: BLOOD SPECIMEN Ordering Facility: [facility] Address: [address] [place] [address] Performed By: #### 5 8410-2 #### [facility] IA [id number] [address] [place] [address] [place] Hemoglobin (Bld) [Mass/Vol] 11.6 g/dL Low 13.0-17.0 [facility] Comment on above: Order Comment: Speci men Type: BLOOD SPECIMEN Ordering Facility: [facility] Address: [address] [place] [address] Performed By: #### 5 8410-2 #### [facility] CLIA [id number] [address] [place] [address] [place] MCH (RBC) [Entitic mass] 32.3 pg Normal 26.0-34.0 [facility] Comment on above: Order Comment: Speci men Type: BLOOD SPECIMEN Ordering Facility: [facility] Address: [address] [place] [address] Performed By: #### 5 8410-2 #### [facility] CLIA [id number] [address] [place] [address] [place] MCHC (RBC) [Mass/Vol] 34.0 g/dL Normal 30.5-36.0 [facility] Comment on above: Order Comment: Speci men Type: BLOOD SPECIMEN Ordering Facility: [facility] Address: [address] [place] [address] Performed By: #### 5 8410-2 #### [facility] IA [id number] [address] [place] [address] [place] MCV (RBC) [Entitic vol] 95.0 fL Normal 80.0-100.0 [facility] Comment on above: Order Comment: Speci men Type: BLOOD SPECIMEN Ordering Facility: [facility] Address: [address] [place] [address] Performed By: #### 5 8410-2 #### [facility] IA [id number] [address] [place] [address] [place] Nucleated RBC (Bld) [#/Vol] 10*3/uL Normal <0.01 [facility] Comment on above: Order Comment: Speci men Type: BLOOD SPECIMEN Ordering Facility: [facility] Address: [address] [place] [address] Performed By: #### 5 8410-2 #### [facility] IA [id number] [address] [place] [address] [place] Platelet mean volume (Bld) [Entitic vol] 9.6 fL Normal 9.0-12.7 [facility] Comment on above: Order Comment: Speci men Type: BLOOD SPECIMEN Ordering Facility: [facility] Address: [address] [place] [address] Performed By: #### 5 8410-2 #### [facility] CLIA [id number] [address] [place] [address] [place] Platelets (Bld) [#/Vol] 159 10*3/uL Normal 150-400 [facility] Comment on above: Order Comment: Speci men Type: BLOOD SPECIMEN Ordering Facility: [facility] Address: [address] [place] [address] Performed By: #### 5 8410-2 #### [facility] CLIA [id number] [address] [place] [address] [place] RBC (Bld) [#/Vol] 3.59 10*6/uL Low 4.20-6.00 [facility] Comment on above: Order Comment: Speci men Type: BLOOD SPECIMEN Ordering Facility: [facility] Address: [place] [id number] Performed By: #### 5 8410-2 #### [facility] CLIA [id number] [address] [place], [place] [address] [facility] WBC (Bld) [#/Vol] 8.72 10*3/uL Normal 3.70-11.00 [facility] Comment on above: Order Comment: Speci men Type: BLOOD SPECIMEN Ordering Facility: [facility] Address: [place] [id number] Performed By: #### 5 8410-2 #### [facility] CLIA [id number] [address] [place] [address] [facility] NURSING PROGon 12-09-2022 NURSING PROG HNO ID: [id number] Author: Abdias Pemberton RN Service: Nursing Author Type: Registered Nurse Type: Nursing Progress Note Filed: 12/09/2022 7:21 PM Note Text: 12/09/2022 0826: hydromorphone BED CONTROL SPECIALIST rate varied. Patient rating pain 8/10 at this time stating oh, its much better than yesterday . 0931: Patient working with PT at this time 1035: Patient resting/sleeping comfortably in bed at this time. 1200: fentaNYL BED CONTROL SPECIALIST ordered. 1345: Patient ambulating in the hallway with nursing staff and . 1402: Patient at radiology for post-op XR 1406: Hydromorphone BED CONTROL SPECIALIST discontinued. While discontinuing the hydromorphone BED CONTROL SPECIALIST, patient made several comments about unused hydromorphone, I can take that medication off your hands. Patient educated that the medication will be properly wasted per protocol. 1407: fentaNYL BED CONTROL SPECIALIST started and Hydromorphone properly wasted per protocol. 1530: Patient resting comfortably in bed at this time. Patient's no longer at the bedside. 1615: Patient resting/sleeping comfortably in bed at this time. 1737: Patient medicated per eMAR with Robaxin. 1821: Patient's returned to bedside. Patient rating his pain 10/10 while resting in bed. Patient states I know you guys started me off on the lowest dose of fentaNYL but the pain is starting to cycle again. Can't you increase my setting on the BED CONTROL SPECIALIST because I had better pain relief with the Dilaudid pump because I could press the button more frequent? Can you increase the pump settings? [facility] THERAPY NTon 12-09-2022 THERAPY NT HNO ID: [id number] Author: Abdias Crooks, OT/L Service: Occupational Therapy Author Type: Occupational Therapist Type: Therapy (PT/OT/Speech/Resp) Filed: 12/09/2022 3:30 PM Note Text: Occupational Therapy Evaluation SERVICE DATE: 12/09/2022 SERVICE TIME: 1438 to 1502 ROOM: [place] [address] Total Joint Replacement Discharge Readiness: Cleared from Occupational Therapy Recommended Discharge Disposition: Home Recommended Discharge Disposition Comments: Patient needs to continue with walking and functional mobility at home to help him achieve neuromuscular re-education following surgery to improve mobility and normalize pain. Anticipated Discharge Needs: Physical Assist at Home Physical Assist at Home for: Cleaning, Laundry, Meals, Stairs, Self Care, Shopping, Transportation Recommended Discharge Equipment: No equipment needs anticipated OT 6 Clicks Score: 24 Precautions/Activity Restrictions: Lines/Tubes/Drains, Spine Precaution/Activity Restriction Comments: Lumbar Current Hospital Course: s/p lumbar spinal fusion Reason for Hospital Admission: planned spine surgery Relevant Past Medical History: Central corneal ulcer, Herpes simplex iridocyclitis, Hypertension Response to Therapy Interventions: Pain, Requires Additional Time to Complete Activities, Requires Encouragement to Complete Activities Continued Skilled Needs Due to: Functional Impairment Occupational Therapy Problem List: Pain, Impaired Self Care, Decreased Activity Tolerance, Functional Mobility Impairment, Balance Impaired Cognition/Communicatio n Deficits Responsiveness: Alert, Awake Follows Commands: 3-step Commands Treatment Interventions: Education, Self Care/Home Management, Functional Mobility Training, Pain Management Plan for Next Visit: (N/A; cleared from an OT perspective.) Home Environment Patient Lives With: Spouse, Other: See Comment, Family (29 year old daughter) Assistance Available: Part-Time Entry To Home: Stairs Number Of Stairs Into Home: 1 Number Of Stairs To Bed/Bath: 0 Tub/Shower Type: walk in Laundry: will complete Equipment Owned: Cane, Grab Bars- Shower, Rollator, Walker- Wheeled Prior Functional Level: Required Assistance Assistance Required With: Cleaning, Laundry, Meals, Self Care, Shopping, Transportation Prior Functional Level Comments: Was using a rollator at home for mobility. assisted patient with LB ADLs prior to surgery. and daughter prepare meals, do housework and laundry, etc. Baseline Cognition: Oriented to self, Oriented to place, Oriented to time, Oriented to situation Subjective: I just got back into bed. They started me on Fentanyl, which should help, because the Dilaudid wasn't really working. CURRENT FUNCTIONAL STATUS: Most recent performance Current Activities of Daily Living Assist Level Additional Information Feeding Independent Grooming Set Up (while seated) Bathing Upper Body Set Up (while seated) Bathing Lower Body Stand By Assistance (using Figure 4 formation) Dressing Upper Body Set Up Dressing Lower Body Stand By Assistance (using Figure 4 formation) Toileting Stand By Assistance Instrumental Activities of Daily Living Assist Level Additional Information Meal/Beverage Prep Total Assistance Cleaning Total Assistance Laundry Total Assistance Medication Management with Strategies Set Up Functional Mobility Assist Level Additional Information Rolling Stand By Assistance Supine to Sit Stand By Assistance Sit to Supine Stand By Assistance Scooting Sit to Stand Stand By Assistance Stand to Sit Stand By Assistance Bed to Chair Stand By Assistance Stepping Wheeled Walker Toilet/Commode Stand By Assistance (with 3-in-1 commode over toilet) Shower Functional Mobility Stand By Assistance Wheeled Walker Blank garza indicate activity not attempted Balance: Static Sitting, Dynamic Sitting, Static Standing, Dynamic Standing Static Sitting Balance: Good Patient able to maintain balance without handhold support, limited postural sway Dynamic Sitting Balance: Good Patient accepts moderate challenge, able to maintain balance while picking up object off floor Static Standing Balance: Fair Patient able to maintain balance with handhold support, may require occasional minimal assistance Dynamic Standing Balance: Fair Patient accepts minimal challenge, able to maintain balance while turning head/trunk Learning/Educational Needs: Discharge Plan, Pain Management, Plan of Care, Precautions, Safety, Self Care Goals for Plan of Care: Patient/Caregiver Goals: Reduce ADL/IADL barriers Goals: Patient will demonstrate progress with self-care, cognitive and/or coping needs identified to allow safe discharge to home with available support and/or physical assistance. Lower Body Bathing with: Stand By Assistance Lower Body Dressing with: Stand By Assistance Progress Toward Goals: Progressing slower than expec (more content not included)... [facility] THERAPY NT HNO ID: [id number] Author: Hannah Mota, PT, DPT Service: Physical Therapy Author Type: Physical Therapist Type: Therapy (PT/OT/Speech/Resp) Filed: 12/09/2022 10:06 AM Note Text: Physical Therapy Treatment SERVICE DATE: 12/09/2022 SERVICE TIME: 930 to 954 ROOM: [place] [address] Total Joint Replacement Discharge Readiness: Cleared from Physical Therapy Recommended Discharge Disposition: Home Anticipated Discharge Needs: Physical Assist at Home Physical Assist at Home for: Cleaning, Laundry, Meals, Stairs, Safety Recommended Discharge Equipment: No equipment needs anticipated PT 6 Clicks Score: 24 Pt agreeable to participate. Reports slight improvement in pain compared to yesterday but relies highly on BED CONTROL SPECIALIST. Pt able to ambulate around unit with Wheeled walker and Supervision. Declined need for additional curb step training this session. I having no problem getting into my house . Reviewed post op exercises, precautions and use of staff to ambulate frequently on unit. Pt voiced understanding. Pt cleared from PT standpoint for D/C home with no skilled PT needs when medically cleared. Precautions/Activity Restrictions: Lines/Tubes/Drains, Spine Precaution/Activity Restriction Comments: Lumbar Current Hospital Course: s/p lumbar spinal fusion Reason for Hospital Admission: planned spine surgery Relevant Past Medical History: Central corneal ulcer, Herpes simplex iridocyclitis, Hypertension Response to Therapy Interventions: Good Participation in Activities, Improved Tolerance for Activity, On-Track to Achieve Discharge Goals, Notable Progression with Functional Activities/Skills, Pain Physical Therapy Problem List: Edema, Pain, Functional Mobility Impairment Treatment Interventions: Strengthening, Functional Mobility Training, Education, Pain Management Home Environment Patient Lives With: Spouse Assistance Available: PRN Entry To Home: Stairs Number Of Stairs Into Home: 1 Number Of Stairs To Bed/Bath: 0 Tub/Shower Type: walk in Laundry: will complete Equipment Owned: Cane, Grab Bars- Shower, Rollator, Walker- Wheeled Prior Functional Level: Within Functional Limits Prior Functional Level Comments: used rollator for all mobility due to RLE weakness Subjective: The pain was out of control yesterday. Today it's more like an 8.5 CURRENT FUNCTIONAL STATUS: Most recent performance Current Functional Mobility Assist Level Additional Information Rolling Supine to Sit Modified Independent Sit to Supine Minimal Assistance, Additional Information with Parviz Darby Modified Independent Sit to Stand Supervision Stand to Sit Supervision Bed to Chair Supervision Bed To Chair Transfer Type: Stepping Bed To Chair Transfer Equipment: Wheeled Walker Toilet/Commode Gait Supervision Gait Device: Wheeled Walker Gait Distance (feet): 200 feet x 1 Stairs Curb Step Additional Information Device: Wheeled Walker pt declined additional curb step training 12/09/22 Car Transfer Blank garza indicate activity not attempted Gait Deviations Right Lower Extremity: Stance time decreased, Weight bearing decreased General Deviations/Observation s: Briseida decreased, Shuffling Gait, Step length decreased, UE weight bearing on assistive device excessive JH-HLM: 7: Walk 25 feet or more Learning/Educational Needs: Discharge Plan, Plan of Care, Precautions, PT In-Hospital Exercise Program, Functional Activities/Mobility, Safety Goals for Plan of Care: Patient/Caregiver Goals: Go Home Goals: Patient will demonstrate progress with functional mobility to allow safe discharge to home with available support and/or physical assistance. Progress Toward Goals: Progressing as expected Rehab Potential: Good Patient will be discontinued from Physical Therapy when no further skilled needs are identified in this setting. PLAN: PT Frequency: 5 Times Per Week Plan of Care developed with: Patient TREATMENT INTERVENTIONS: Therapy Diagnosis: Reduced mobility-other, Difficulty walking-musculoskeleta l Interventions Provided: Therapeutic Activity (59403), Gait Training (16370) Therapeutic Activity (95193) Treatment Minutes: 10 $ Therapeutic Activity (15166) Billed Units: 1 unit Gait Training (23469) Treatment Minutes: 14 $ Gait Training (09575) Billed Units: 1 unit Training AND Education Provided in: Assistive Device Use, Discharge Planning, Edema Management, Exercise Program, Falls Prevention, Expected Functional Level, Handout Issued, Precautions/Restrictio ns, Positioning, Role of Physical Therapy, Transfers, Curb Step Navigation The Following Therapeutic Skills Were Used: Activity Dosing, Cues for Sequencing/Proper Technique for Activity, Cuing Verbal, Teach-Back for Education Timed Code Treatment (minutes): 24 Skilled Treatment Time (minutes): 24 Please see discipline specific clinical documentation flowsheet for complete details for this therapy (more content not included)... [facility] XR LUMBAR 2V AP/LATon 10-15- 2023 XR LUMBAR 2V AP/LAT * * *Final Report* * * DATE OF EXAM: Dec 09 2022 2:02PM LUX 5229 - XR LUMBAR 2V AP/LAT / PROCEDURE REASON: Postoperative assessment * * * * Physician Interpretation * * * * EXAMINATION: XR LUMBAR 2V AP/LAT PATIENT/TECHNOLOGIST PROVIDED HISTORY: post op 12/07 CLINICAL INFORMATION: 57 years old Male with Postoperative assessment Xray AP/LAT Lumbar Spine - weight bearing in Radiology on POD #2 TECHNIQUE: XR LUMBAR 2V AP/LAT Laterality: NOT APPLICABLE Number of different views (projections): 2 COMPARISON: Intraoperative lumbar spine radiographs 12/07/2022, outside hospital [place] 10/12/2022 RESULT: Lumbar spine: Counting reference: Lumbosacral junction. For the purposes of this report, L4-5 is considered the level of the iliac crest and there are 5 lumbar-type vertebrae. Anatomic Variants: None. Post-op assessment: Status post redo decompression and posterior instrumented fusion now extending from L2 to S1 with bilateral transpedicular screws, vertical interconnecting rods and interbody cages at L2-L3 and L3-L4. Surgical drain is present. Alignment: Straightening of the normal lumbar lordosis. Mild levoconvex curvature of the lower lumbar spine. Mild retrolisthesis of L2 on L3 and L3 on L4. Vertebral bodies: Vertebral body heights are maintained. Spine articulations: Interbody cages at L2-L3 and L3-L4. Severe disc space narrowing L4-L5 and L5-S1. Multilevel and plate osteophytes. Other: Sacroiliac joints are within normal limits. IMPRESSION: Postoperative and degenerative changes as described. Television Station Manager: PSCB Transcribe Date/Time: Dec 09 2022 3:39P Dictated by : DONNY WOO DO This examination was interpreted and the report reviewed and electronically signed by: DONNY WOO DO on Dec 09 2022 3:42PM EST [id number] Normal [facility] Basic metabolic 2000 panelon 12-08-2022 Anion gap [Moles/Vol] 7 mmol/L Low 11-12 [facility] Comment on above: Order Comment: Speci men Type: BLOOD SPECIMEN Ordering Facility: [facility] Address: [address] [place], [place] [address] Performed By: #### 2 4321-2 #### [facility] CLIA [id number] [address] [place] [address] [place] Calcium [Mass/Vol] 8.2 mg/dL Low 8.5-10.2 [facility] Comment on above: Order Comment: Speci men Type: BLOOD SPECIMEN Ordering Facility: [facility] Address: [address] [place] [address] Performed By: #### 2 4321-2 #### [facility] CLIA [id number] [address] [place] [address] [place] Chloride [Moles/Vol] 106 mmol/L High 97-105 [facility] Comment on above: Order Comment: Speci men Type: BLOOD SPECIMEN Ordering Facility: [facility] Address: [address] [place] [address] Performed By: #### 2 4321-2 #### [facility] CLIA [id number] [address] [place] [address] [place] CO2 [Moles/Vol] 28 mmol/L Normal 22-30 [facility] Comment on above: Order Comment: Speci men Type: BLOOD SPECIMEN Ordering Facility: [facility] Address: [address] [place] [address] Performed By: #### 2 4321-2 #### [facility] CLIA [id number] [address] [place] [address] [place] Creatinine [Mass/Vol] 1.35 mg/dL High 0.73-1.22 [facility] Comment on above: Order Comment: Speci men Type: BLOOD SPECIMEN Ordering Facility: [facility] Address: [address] [place] [address] Performed By: #### 2 4321-2 #### [facility] CLIA [id number] [address] [place] [address] [place] Creatinine and Glomerular filtration rate.predicted panel (S/P/Bld) 60 mL/min/1.73m??? Normal >=60 [facility] Comment on above: Order Comment: Speci men Type: BLOOD SPECIMEN Ordering Facility: [facility] Address: [address] [place] [address] Result Comment: Leah mated Glomerular Filtration Rate (eGFR) is calculated using the 2020 CKD-EPI creatinine equation. This equation utilizes serum creatinine, sex, and age as parameters. The creatinine assay has traceable calibration to isotope dilution-mass spectrometry. Refer to KDIGO guidelines for clinical interpretation. In patients with unstable renal function, e.g. those with acute kidney injury, the eGFR may not accurately reflect actual GFR. Performed By: #### 2 4321-2 #### [facility] CLIA [id number] [address] [place] [address] [place] Glucose [Mass/Vol] 139 mg/dL High 74-99 [facility] Comment on above: Order Comment: Shahrzad dumont Type: BLOOD SPECIMEN Ordering Facility: [facility] Address: [address] [place] [address] Result Comment: The [place] Diabetes Association (ADA) provides guidance for cutoff values for fasting glucose and random glucose. The ADA defines fasting as no caloric intake for at least 8 hours. Fasting plasma glucose results between 100 to 125 mg/dL indicate increased risk for diabetes (prediabetes). Fasting plasma glucose results greater than or equal to 126 mg/dL meet the criteria for diagnosis of diabetes. In the absence of unequivocal hyperglycemia, results should be confirmed by repeat testing. In a patient with classic symptoms of hyperglycemia or hyperglycemic crisis, random plasma glucose results greater than or equal to 200 mg/dL meet the criteria for diagnosis of diabetes. Reference: Standards of Medical Care in Diabetes 2016, [place] [employer]. Diabetes Care. 2016.39(Suppl 1). Performed By: #### 2 4321-2 #### [facility] IA [id number] [address] [place], [place] [id number] [place] Potassium [Moles/Vol] 3.7 mmol/L Normal 3.7-5.1 [facility] Comment on above: Order Comment: Shahrzad dumont Type: BLOOD SPECIMEN Ordering Facility: [facility] Address: [address] [place] [address] Performed By: #### 2 4321-2 #### [facility] CLIA [id number] [address] Sodium [Moles/Vol] 141 mmol/L Normal 136-144 [facility] Comment on above: Order Comment: Speci men Type: BLOOD SPECIMEN Ordering Facility: [facility] Address: [address] [place] [id number] Performed By: #### 2 4321-2 #### [facility] CLIA [id number] [address] [place], [place] [id number] [facility] Urea nitrogen [Mass/Vol] 23 mg/dL Normal 9-24 [facility] Comment on above: Order Comment: Speci men Type: BLOOD SPECIMEN Ordering Facility: [facility] Address: [address] [place] [address] Performed By: #### 2 4321-2 #### [facility] CLIA [id number] [address] [place] [id number] [facility] CASE MGT INIT ASSESon 2022 CASE MGT INIT ASSES HNO ID: [id number] Author: Gloria Toro RN Service: ? Author Type: Registered Nurse Type: Care Mgt Initial Assessment Filed: 12/08/2022 8:48 AM Note Text: CARE MANAGEMENT: ASSESSMENT AND DISCHARGE PLAN SERVICE DATE: December 08, 2022 SERVICE TIME: 8:46 am PCP: Derick Isabel MD Primary Contact: Extended Emergency Contact Information Primary Emergency Contact: Darryl Simental Address: [address] [place] [address] Mobile Relation: Spouse Admission Status: Inpatient - SURGERY/PROCEDURE(S): L2-S1 revision instrumented fusion L2/3, L3/4 TLIF Insurance Provider: [employer] Discharge Planning requested by: Per Department Practice Potential Transition Plans Home Advance Directives Current Advance Directive: None Current Living Arrangements and Support Lives with: Spouse/significant other Type of Residence: Private Residence (House) Support: Spouse/significant other How do you manage to accomplish the following: Needs Assistance: Transportation to appointments/community ;Ambulation Current Services/Equipment Current Post-Acute Service(s): DME Current DME Type: Cane, Rolling walker, Standard walker Discharge Planning Patient Goal(s): Better mobility, Be able to go home, General wellness, Less pain [place] of Choice Explained: [place] of Choice Given: No Reason Not Given: No placements necessary Discharge Planning Participant(s): Patient Patient/Family Comments: Caregiver Assessment: Transport at Discharge: Needs Prior to Discharge: Needs Prior to Discharge: To Be Determined;OT/PT Evaluation Post-Acute Discharge Plan: CM met with patient at the bedside this a.m., has rollator, cane AND walker, says will be driving him home at [place] and can assist him as well, per eval, no further skilled PT / OT needed at [place]. CM Department will continue to follow until [place]. SIGNATURE: Gloria Toro RN PATIENT NAME: Sukhdeep Simental DATE: December 08, 2022 TIME: 8:46 AM CONTACT #: [phone] [facility] CBC panel Auto (Bld)on 12-08 Erythrocyte distribution width (RBC) [Ratio] 12.8 % Normal 11.5-15.0 [facility] Comment on above: Order Comment: Shahrzad dumont Type: BLOOD SPECIMEN Ordering Facility: [facility] Address: [address] [place] [address] Performed By: #### 5 8410-2 #### [facility] CLIA [id number] [address] [place] [address] [place] Hematocrit (Bld) [Volume fraction] 34.8 % Low 39.0-51.0 [facility] Comment on above: Order Comment: Shahrzad dumont Type: BLOOD SPECIMEN Ordering Facility: [facility] Address: [address] [place] [address] Performed By: #### 5 8410-2 #### [facility] CLIA [id number] [address] [place] [address] [place] Hemoglobin (Bld) [Mass/Vol] 11.7 g/dL Low 13.0-17.0 [facility] Comment on above: Order Comment: Shahrzad dumont Type: BLOOD SPECIMEN Ordering Facility: [facility] Address: [address] [place] [address] Performed By: #### 5 8410-2 #### [facility] CLIA [id number] [address] [place] [address] [place] MCH (RBC) [Entitic mass] 31.8 pg Normal 26.0-34.0 [facility] Comment on above: Order Comment: Speci men Type: BLOOD SPECIMEN Ordering Facility: [facility] Address: [address] [place] [address] Performed By: #### 5 8410-2 #### [facility] CLIA [id number] [address] [place] [address] [place] MCHC (RBC) [Mass/Vol] 33.6 g/dL Normal 30.5-36.0 [facility] Comment on above: Order Comment: Speci men Type: BLOOD SPECIMEN Ordering Facility: [facility] Address: [address] [place] [address] Performed By: #### 5 8410-2 #### [facility] CLIA [id number] [address] [place] [address] [place] MCV (RBC) [Entitic vol] 94.6 fL Normal 80.0-100.0 [facility] Comment on above: Order Comment: Speci men Type: BLOOD SPECIMEN Ordering Facility: [facility] Address: [address] [place] [address] Performed By: #### 5 8410-2 #### [facility] IA [id number] [address] [place] [address] [place] Nucleated RBC (Bld) [#/Vol] 10*3/uL Normal <0.01 [facility] Comment on above: Order Comment: Speci men Type: BLOOD SPECIMEN Ordering Facility: [facility] Address: [address] [place] [address] Performed By: #### 5 8410-2 #### [facility] CLIA [id number] [address] [place] [address] [place] Platelet mean volume (Bld) [Entitic vol] 9.4 fL Normal 9.0-12.7 [facility] Comment on above: Order Comment: Speci men Type: BLOOD SPECIMEN Ordering Facility: [facility] Address: [address] [place] [address] Performed By: #### 5 8410-2 #### [facility] CLIA [id number] [address] [place] [address] [place] Platelets (Bld) [#/Vol] 162 10*3/uL Normal 150-400 [facility] Comment on above: Order Comment: Speci men Type: BLOOD SPECIMEN Ordering Facility: [facility] Address: [address] [place] [address] Performed By: #### 5 8410-2 #### [facility] CLIA [id number] [address] [place] [address] [place] RBC (Bld) [#/Vol] 3.68 10*6/uL Low 4.20-6.00 [facility] Comment on above: Order Comment: Speci men Type: BLOOD SPECIMEN Ordering Facility: [facility] Address: [address] [place] [address] Performed By: #### 5 8410-2 #### [facility] CLIA [id number] [address] [place] [address] [place] WBC (Bld) [#/Vol] 7.95 10*3/uL Normal 3.70-11.00 [facility] Comment on above: Order Comment: Speci men Type: BLOOD SPECIMEN Ordering Facility: [facility] Address: [address] [place] [address] Performed By: #### 5 8410-2 #### [facility] CLIA [id number] [address] [place], [place] [id number] [facility] [place] CONSULTon 12-08-2022 CONSULT HNO ID: [id number] Author: Lulu Oviedo MD Service: General Internal Medicine Author Type: Physician Type: Consults Filed: 12/08/2022 12:04 PM Note Text: INTERNAL MEDICINE CONSULT HISTORY AND PHYSICAL PLEASE DO NOT REMOVE FROM THE CHART OR MODIFY PRINTED COPY Patient Name: Sukhdeep Simental PRIMARY CARE PHYSICIAN: Derick Isabel MD CONSULTING PHYSICIAN: Edd Mathew MD MD DATE of CONSULT: 12:02 PM HPI: This is a 57 year old male who presents with L2-S1 revision instrumented fusion L2/3, L3/4 TLIF send seen postop day 1 pain pain is escalating to 8/10 denied any nausea vomiting history of hypertension history of GERD PAST MEDICAL HISTORY: PAST MEDICAL HISTORY Diagnosis Date Central corneal ulcer Herpes simplex iridocyclitis Hypertension PAST SURGICAL HISTORY: PAST SURGICAL HISTORY Procedure Laterality Date PAST SURGICAL HISTORY OF knee replacment right PAST SURGICAL HISTORY OF kidney stones removed FAMILY HISTORY: FAMILY HISTORY Problem Relation Age of Onset Cancer Father Diabetes Mother Detached Retina Maternal Uncle Hypertension Maternal Uncle SOCIAL HISTORY: Social History Tobacco Use Smoking status: Never Smokeless tobacco: Never Vaping Use Vaping Use: Never used Substance Use Topics Alcohol use: No Drug use: No ALLERGIES: ALLERGIES No Known Allergies PRIOR TO ADMISSION MEDICATIONS: bumetanide (BUMEX) 1 mg tablet, Take 1 tablet by mouth once daily., Disp: , Rfl: , 12/06/2022 doxazosin (CARDURA) 4 mg tablet, Take 4 mg by mouth., Disp: , Rfl: , 12/07/2022 FEROSUL 325 mg (65 mg iron) tablet, Take 1 tablet by mouth every 12 (twelve) hours., Disp: , Rfl: , 12/06/2022 hydrOXYzine HCl (ATARAX) 25 mg tablet, TAKE 1 TABLET BY MOUTH FOUR TIMES DAILY NEEDED MUST LAST 30 DAYS, Disp: , Rfl: , Past Week irbesartan (AVAPRO) 300 mg tablet, 1/2 tablet Orally Once a day for 60 days, Disp: , Rfl: , 12/06/2022 metoclopramide HCl (REGLAN) 10 mg tablet, Take 10 mg by mouth as needed., Disp: , Rfl: , 10/22/2022 omeprazole (PRILOSEC) 20 mg capsule, Take 1 capsule by mouth twice daily., Disp: , Rfl: , 12/06/2022 pioglitazone (ACTOS) 30 mg tablet, , Disp: , Rfl: , 12/06/2022 simvastatin (ZOCOR) 10 mg tablet, Take 1 tablet by mouth once daily., Disp: , Rfl: , 12/06/2022 tamsulosin (FLOMAX) 0.4 mg, Take 1 capsule by mouth once daily., Disp: , Rfl: , 12/07/2022 testosterone cypionate (DEPO-TESTOSTERONE) 100 mg/mL injection, INJECT 1.5 ML INTO THE MUSCLE EVERY 2 WEEKS DIRECTED, Disp: , Rfl: , 12/02/2022 tizanidine HCl (ZANAFLEX ORAL), daily at bedtime., Disp: , Rfl: , 12/05/2022 traZODone (DESYREL) 150 mg tablet, , Disp: , Rfl: , 12/06/2022 REVIEW OF SYSTEMS: GENERAL: No weight loss, malaise or fevers HEENT: Negative for frequent or significant headaches, No changes in hearing or vision, no nose bleeds or other nasal problems NECK: Negative for lumps, goiter, pain and significant neck swelling RESPIRATORY: Negative for cough, hemoptysis, wheezing, COPD, dyspnea or shortness of breath CARDIOVASCULAR: Negative for chest pain, leg swelling, hypertension, CHF or palpitations GI: No nausea, vomiting, or diarrhea MUSCULOSKELETAL: Negative for joint pain or swelling, back pain or muscle pain SKIN: Negative for lesions, rash, and itching HEMATOLOGY/LYMPHOLOGY: Negative for prolonged bleeding, bruising easily or swollen nodes ENDOCRINE: Negative for cold or heat intolerance, polyuria, polydipsia and goiter NEURO: No history of headaches, syncope, paralysis, seizures or tremors All other reviewed and negative other than HPI. PHYSICAL EXAM: Blood pressure 134/86, pulse 72, temperature 37 ?C (98.6 ?F), resp. rate 16, height 175.3 cm (5' 9 ), weight 122.9 kg (271 lb), SpO2 97 %. General appearance: well appearing, alert, in no acute distress, and well-hydrated, well nourished Skin: Skin color, texture, turgor normal, no suspicious rashes or lesions Head: normal Eyes: Anicteric sclera. Pupils are equally round and reactive to light. Extraocular movements are intact. Ears: external ears normal, canals clear, TM's normal Nose/Sinuses: Negative Oropharynx: Lips, mucosa, and tongue normal, teeth and gums normal, oropharynx normal Neck: Supple, no adenopathy; thyroid symmetric, normal size, no bruits Back: no pain to palpation over spine or costovertebral angles, reflexes are 2+ and symmetric, motor and sensory appear to be normal Lungs: clear to auscultation no wheezing or rhonchi Heart: RRR without murmur, gallop, or rubs. No ectopy Abdomen: Normal abdominal exam, Abdomen soft, non-tender. Bowel sounds normal. No masses, organomegaly Extremities: Extremities normal. No deformities, edema, or skin discoloration. Good capillary refill. Peripheral pulses: Normal Neuro: Gait normal. Reflexes normal and symmetric. Sensation grossly intact. DATA: CBC, Coags, BMP, Mg, Phos Recent Labs 12/08 (more content not included)... [facility] NURSING PROGon 12-08-2022 NURSING PROG HNO ID: [id number] Author: Abdias Pemberton, RN Service: Nursing Author Type: Registered Nurse Type: Nursing Progress Note Filed: 12/09/2022 7:14 PM Note Text: 12/08/2022 1645: Patient sitting up in chair, tearful, and rocking back and forth with at the bedside. Patient rating his pain 10/10 and stating I need the pain pump again , Fentanyl works for me, I need Fentanyl to break the cycle of pain, it is the only thing that will work , I know that Fentanyl is stronger than what I am getting now . 1650: Patient medicated per eMAR with Robaxin 1651: Pain management and Dr. Mathew notified of the patient's increased pain after BED CONTROL SPECIALIST was DC'ed earlier and transitioned to PO medications. Hydromorphone BED CONTROL SPECIALIST reordered per Dr. Mathew. 1729: Hydromorphone BED CONTROL SPECIALIST restarted. 1735: Patient assisted by nursing staff to bed and states that his pain has decreased. Patient resting comfortably in bed at this time. 1900: Patient resting comfortably in bed at this time. Normal [facility] THERAPY NTon 12-08-2022 THERAPY NT HNO ID: [id number] Author: Taylor Montoya OTR/Kelly Service: Occupational Therapy Author Type: Occupational Therapist Type: Therapy (PT/OT/Speech/Resp) Filed: 12/08/2022 12:35 PM Note Text: OCCUPATIONAL THERAPY MISSED VISIT SERVICE DATE: 12/08/2022 SERVICE TIME: 1233 to 1233 ROOM: [place] [address] Patient not seen due to Refused Treatment. Patient having a significant amount of pain. Offered patient option of working with OT tomorrow. Pt would prefer OT evaluation tomorrow. SIGNATURE: URSULA Glynn/Kelly PATIENT NAME: Sukhdeep Simental DATE: December 08, 2022 TIME: 12:34 PM [facility] THERAPY NT HNO ID: [id number] Author: Jean-Pierre Lutz, PT, DPT Service: Physical Therapy Author Type: Physical Therapist Type: Therapy (PT/OT/Speech/Resp) Filed: 12/08/2022 8:44 AM Note Text: Physical Therapy Evaluation SERVICE DATE: 12/08/2022 SERVICE TIME: 807 to 830 ROOM: [place] [address] Cleared from Physical Therapy Recommended Discharge Disposition: Home Anticipated Discharge Needs: Physical Assist at Home Physical Assist at Home for: Cleaning, Laundry, Meals, Stairs, Safety Recommended Discharge Equipment: No equipment needs anticipated PT 6 Clicks Score: 24 Precautions/Activity Restrictions: Lines/Tubes/Drains, Spine Precaution/Activity Restriction Comments: Lumbar Current Hospital Course: s/p lumbar spinal fusion Reason for Hospital Admission: planned spine surgery Relevant Past Medical History: Central corneal ulcer, Herpes simplex iridocyclitis, Hypertension Response to Therapy Interventions: Good Participation in Activities, On-Track to Achieve Discharge Goals, Pain Assessment Comments: Pt tolerated session well. Limited most by pain in low back and weakness in RLE. Patient able to complete all functional mobility without physical assistance this date. Currently safe to discharge home from therapy stand point. Will not need home PT. Continued Skilled Needs Due to: Functional Mobility/Skill Impairments, Family Training Required Physical Therapy Problem List: Edema, Pain, Functional Mobility Impairment Treatment Interventions: Strengthening, Functional Mobility Training, Education, Pain Management Plan for Next Visit: Bed Mobility, Edema Management, Gait Training, Family Instruction, Sit to Stand Transfers, Stair Training, Exercise Instruction/Handout, Walker Training Home Environment Patient Lives With: Spouse Assistance Available: PRN Entry To Home: Stairs Number Of Stairs Into Home: 1 Number Of Stairs To Bed/Bath: 0 Tub/Shower Type: walk in Laundry: will complete Equipment Owned: Cane, Grab Bars- Shower, Rollator, Walker- Wheeled Prior Functional Level: Within Functional Limits Prior Functional Level Comments: used rollator for all mobility due to RLE weakness Subjective: pt agreeable to therapy eval CURRENT FUNCTIONAL STATUS: Most recent performance Current Functional Mobility Assist Level Additional Information Rolling Supine to Sit Sit to Supine Scooting Independent Sit to Stand Supervision Stand to Sit Supervision Bed to Chair Toilet/Commode Gait Stand By Assistance Gait Device: Wheeled Walker (heavy reliance on UE WB) Gait Distance (feet): 100ft Stairs Curb Step Stand By Assistance Device: Wheeled Walker Car Transfer Blank garza indicate activity not attempted Gait Deviations Right Lower Extremity: Stance time decreased, Weight bearing decreased General Deviations/Observation s: Antalgic gait, Flexed trunk posture, Wide base of support -HLM: 7: Walk 25 feet or more Learning/Educational Needs: Discharge Plan, Plan of Care, Precautions, PT In-Hospital Exercise Program, Functional Activities/Mobility, Safety Goals for Plan of Care: Patient/Caregiver Goals: Go Home Goals: Patient will demonstrate progress with functional mobility to allow safe discharge to home with available support and/or physical assistance. Progress Toward Goals: Progressing as expected Rehab Potential: Good Patient will be discontinued from Physical Therapy when no further skilled needs are identified in this setting. PLAN: PT Frequency: 5 Times Per Week Plan of Care developed with: Patient TREATMENT INTERVENTIONS: Therapy Diagnosis: Reduced mobility-other, Muscle Weakness (generalized) Interventions Provided: Evaluation, Gait Training (04651) $ Evaluation-Low (21355) Billed Units: 1 unit Gait Training (64802) Treatment Minutes: 8 $ Gait Training (51028) Billed Units: 1 unit Training AND Education Provided in: Assistive Device Use, Discharge Planning, Edema Management, Exercise Program, Falls Prevention, Expected Functional Level, Handout Issued, Precautions/Restrictio ns, Positioning, Role of Physical Therapy, Transfers, Curb Step Navigation The Following Therapeutic Skills Were Used: Activity Dosing, Cues for Sequencing/Proper Technique for Activity, Cuing Verbal, Teach-Back for Education Timed Code Treatment (minutes): 8 Skilled Treatment Time (minutes): 23 Exercise Anti-Embolics (number of reps): 10 LAQ (number of reps): 10 Please see discipline specific clinical documentation flowsheet for complete details for this therapy evaluation/treatment. SIGNATURE: Jean-Pierre Lutz PT, DPT PATIENT NAME: Sukhdeep Simental DATE: December 08, 2022 TIME: 8:44 AM [facility] ANES POSTPROC EVALon -13-2 023 ANES POSTPROC EVAL HNO ID: [id number] Author: Ankit Orlando MD Service: Anesthesiology Author Type: Anesthesiologist Type: Anesthesia Postprocedure Evaluation Filed: 12/07/2022 3:37 PM Note Text: POST ANESTHESIA EVALUATION NOTE : 1965 Procedure Summary Date: 12/07/22 Room / Location: OR / OR Anesthesia Start: 737 Anesthesia Stop: 1255 Procedures: TLIF DECOMPRESSION LAMINECTOMY INTERBODY FUSION LUMBAR POSTERIOR (PLIF) LEVEL 1 (Spine Lumbar) DECOMPRESSION LAMINECTOMY INTERBODY FUSION LUMBAR POSTERIOR (PLIF) LEVEL 2 (Spine Lumbar) POSTERIOR SEGMENTAL INSTRUMENTATION FOLLOWING LUMBAR FUSION 3-6 LEVELS (Spine Lumbar) INSERTION INTERBODY BIOMED DEVICE(S) W/ANT INSTR ANCHORING TO DISC SPACE W/INTERBODY FUSION,EA INTERSPACE (Spine Lumbar) Diagnosis: Lumbar adjacent segment disease with spondylolisthesis (Lumbar adjacent segment disease with spondylolisthesis [M51.36, M43.16]) Surgeons: Edd Mathew MD Responsible Provider: Ankit Orlando MD Anesthesia Type: general ASA Status: 3 Anesthesia Type: general Airway Type: ETT Last Vitals Vitals Value Taken Time BP 140/71 12/07/22 1426 Temp 36.9 ?C (98.4 ?F) 12/07/22 1426 Pulse 83 12/07/22 1426 Resp 18 12/07/22 1426 SpO2 98 % 12/07/22 1426 Post Anesthesia Patient Status Patient Evaluation: PACU. PACU/ICU Patient Condition: stable. Anticipated Disposition: inpatient floor planned admission. Neurological Status: aware and responsive. Pulmonary Status: breathing comfortably on room air Airway Control: returned to baseline unsupported. Cardiovascular Status: stable. Pain Management: clinically adequate - multimodal analgesia pain management approach Postoperative Hydration: acceptable. Intraoperative Events: no significant anesthesia events Post Operative Nausea/Vomiting Status: no significant post operative nausea or vomiting Recommendation: continue current plan of care and further care per PACU/ICU/floor team. Anesthesia Observations No Documentation SIGNATURE: Ankit Orlando MD PATIENT NAME: Sukhdeep Simental DATE: December 07, 2022 TIME: 3:37 PM CSN: [id number] [facility] ANES PRE-OPon 12-07-2022 ANES PRE-OP HNO ID: [id number] Author: Nasim Pruett I, MD Service: Anesthesiology Author Type: Anesthesiologist Type: Anesthesia Preprocedure Evaluation Filed: 12/07/2022 7:02 AM Note Text: ANESTHESIOLOGY DAY OF SURGERY NOTE : 1965 Procedure Information Date/Time: 12/07/2230 Procedures: TLIF DECOMPRESSION LAMINECTOMY INTERBODY FUSION LUMBAR POSTERIOR (PLIF) LEVEL 1 (Spine Lumbar) DECOMPRESSION LAMINECTOMY INTERBODY FUSION LUMBAR POSTERIOR (PLIF) LEVEL 2 (Spine Lumbar) POSTERIOR SEGMENTAL INSTRUMENTATION FOLLOWING LUMBAR FUSION 3-6 LEVELS (Spine Lumbar) INSERTION INTERBODY BIOMED DEVICE(S) W/ANT INSTR ANCHORING TO DISC SPACE W/INTERBODY FUSION,EA INTERSPACE (Spine Lumbar) - L2-S1 revision fusion, L2-3, 3-4 TLIF O-Arm Location: [facility] / [facility] Surgeons: Edd Mathew MD Estimated body mass index is 40.02 kg/m? as calculated from the following: Height as of 11/21/22: 175.3 cm (5' 9 ). Weight as of 11/21/22: 122.9 kg (271 lb). Most recent hematocrit and potassium results: Hematocrit 42.9 11/21/2022 Potassium 4.2 11/21/2022 Relevant Problems ANESTHESIA (+) ELIDA (obstructive sleep apnea) CARDIO (+) Essential hypertension ENDO (+) Type 2 diabetes mellitus without complications (HCC) GI (+) Gastroesophageal reflux disease NEURO-PSYCH (+) History of pulmonary embolism PULMONARY (+) ELIDA (obstructive sleep apnea) I - PHYSICAL EVALUATION AIRWAY Patient intubated: No. Tracheostomy tube not present Mallampati: II. TM distance: >3 FB. Neck ROM: full ROM without neurological symptoms. Mouth opening: adequate. Short neck: no. Thick neck: yes Felder present: yes DENTAL Dental findings: missing tooth/teeth. II - ANESTHESIA PLAN ASA Score: 3 Anesthetic Plan: general Airway type: ETT NPO Status: adequate Beta Merlyn Monitoring Plan Monitoring plan: standard ASA. Post Procedure Analgesic Plan Postoperative analgesic plan: parenteral or oral opioids. Informed Consent Anesthetic risks, benefits, alternatives, personnel and consent discussed: yes. Patient / Responsible Libertarian agrees to proceed: yes Patient / Surrogate agrees to blood products: Yes DNR status not reviewed with patient and/or family prior to surgery. Significant changes in the patient condition since the History and Physical, not otherwise documented in primary service progress note: no. Vitals Value Taken Time BP 167/88 10/13/23 0640 Pulse 78 10/13/23 0640 Resp 16 12/07/22639 Temp 36.1 ?C (97 ?F) 12/07/22639 SpO2 100 % 12/07/22639 Facility-Administered Medications as of 12/07/2022 Medication Dose Route Frequency - ceFAZolin 3 g in D5W 100 mL (ANCEF) 3 g INTRAVENOUS ONCE - lactated ringers iv infusion 75 mL/hr INTRAVENOUS CONTINUOUS Outpatient Medications as of 12/07/2022 Medication Sig - bumetanide (BUMEX) 1 mg tablet Take 1 tablet by mouth once daily. - CETIRIZINE HCL (ZYRTEC ORAL) Take by mouth. Prn - doxazosin (CARDURA) 4 mg tablet Take 4 mg by mouth. - FEROSUL 325 mg (65 mg iron) tablet Take 1 tablet by mouth every 12 (twelve) hours. - hydrOXYzine HCl (ATARAX) 25 mg tablet TAKE 1 TABLET BY MOUTH FOUR TIMES DAILY NEEDED MUST LAST 30 DAYS - irbesartan (AVAPRO) 300 mg tablet 1/2 tablet Orally Once a day for 60 days - pioglitazone (ACTOS) 30 mg tablet - simvastatin (ZOCOR) 10 mg tablet Take 1 tablet by mouth once daily. - tamsulosin (FLOMAX) 0.4 mg Take 1 capsule by mouth once daily. - testosterone cypionate (DEPO-TESTOSTERONE) 100 mg/mL injection INJECT 1.5 ML INTO THE MUSCLE EVERY 2 WEEKS DIRECTED - tizanidine HCl (ZANAFLEX ORAL) daily at bedtime. - traZODone (DESYREL) 150 mg tablet I have interviewed and examined the patient. I have reviewed the medical record and/or the pre-anesthesia evaluation, pertinent labs, and test results. This contains updated information obtained within 48 hours of Surgery/Procedure. SIGNATURE: Nasim Pruett MD PATIENT NAME: Sukhdeep Simental DATE: December 07, 2022 TIME: 7:01 AM CSN: [id number] [facility] BRIEF OP NOTon 12-07-2022 BRIEF OP NOT HNO ID: [id number] Author: Edd Mathew MD Service: Neurosurgery Author Type: Physician Type: Brief Op Note Filed: 12/07/2022 12:49 PM Note Text: BRIEF OPERATIVE / PROCEDURE NOTE LOG ID: [id number] SURGERY/PROCEDURE DATE: 12/07/2022 INCISION/PROCEDURE START TIME: 8:09 AM INCISION CLOSE/PROCEDURE END TIME: 12:34 PM SURGEON(S)/PROCEDURALI ST(S) AND INFANT BABYSITTER(S): Surgeon(s) and Role: * Edd Mathew MD - Primary * Janey Hess MD - Resident - Assisting No Additional Staff SURGERY/PROCEDURE(S): L2-S1 revision instrumented fusion L2/3, L3/4 TLIF ANESTHESIA: General FINDINGS: Appropriate decompression and hardware placement ESTIMATED BLOOD LOSS: 450 mls SPECIMENS: None COMPLICATIONS: None DRAINS: Subfascial drain CLOSURE TECHNIQUE: Primary PRE-OP/PRE-PROCEDURE DIAGNOSIS: Adjacent segment spondylolisthesis, L2/3, L3/4 lumbar stenosis with neurogenic claudication, degenerative scoliosis POST-OP/POST-PROCEDURE DIAGNOSIS: Adjacent segment spondylolisthesis, L2/3, L3/4 lumbar stenosis with neurogenic claudication, degenerative scoliosis SIGNATURE: Edd Mathew MD PATIENT NAME: Sukhdeep Simental DATE: December 07, 2022 TIME: 12:31 PM [facility] NURSING PROGon 12-07-2022 NURSING PROG HNO ID: [id number] Author: Livia Calix RN Service: ? Author Type: Registered Nurse Type: Nursing Progress Note Filed: 12/07/2022 2:48 PM Note Text: Transfer Note: PATIENT NAME: Sukhdeep Simental Patient Location: [address]/[place] [address] Room: [place] [address] Patient transferred into room/unit [facility] in stable condition. Patient educated on use of call light, fall precautions, and incentive spirometer. No futher actions taken at this time. Will continue to monitor and check with patient. [facility] OPERATIVE NOon 12-07-2022 OPERATIVE NO HNO ID: [id number] Author: Edd Mathew MD Service: Neurosurgery Author Type: Physician Type: Operative Report Filed: 12/07/2022 3:54 PM Note Text: OPERATIVE/PROCEDURE REPORT LOG ID: [id number] SURGERY/PROCEDURE DATE: 12/07/2022 INCISION/PROCEDURE START TIME: 8:09 AM INCISION CLOSE/PROCEDURE END TIME: 12:34 PM SURGEON(S)/PROCEDURALI ST(S) AND INFANT BABYSITTER(S): Surgeon(s) and Role: * Edd Mathew MD - Primary * Janey Hess MD - Resident - Assisting No Additional Staff SURGERY/PROCEDURE(S): L2-S1 revision instrumented fusion L2/3, L3/4 TLIF ANESTHESIA: General INDICATION: 57-year-old male who presented clinic with symptoms low back bilateral leg pain. Patient failed conservative management. CT myelogram showed degenerative segment degeneration with spondylolisthesis at the L2-3 and L3-4. Decision was made for extension of fusion to L2. SURGERY/PROCEDURE DETAILS: Patient was brought to the operating room. A huddle was performed with anesthesia team and nursing staff and surgical team all agreed to proceed. Patient was positioned prone on the Anirudh table. IV antibiotics were given. The area was prepped and draped in usual fashion. A midline lumbar incision was created using a #10 blade scalpel and carried down through the subcutaneous tissue. Monopolar cautery was utilized for hemostasis and then to divide along the midline down to the spinous processes. The fascia was opened and of the L2-S1 level was dissected free in the subperiosteal plane. Dissection was carried out laterally over the transverse processes of L2-L4. A cross table lateral x-ray confirmed the appropriate level. The spinous process and a bulk of the lamina were removed with a Leksell rongeur and save this bone for arthrodesis later in the operation. A high speed air drill removed the remaining lamina over the region of the ligamentum flavum. Kerrison rongeurs completed the laminectomy. The lateral recesses were completely decompressed and the L2, L3 and L4 neural foramina were decompressed with Kerrison rongeurs. The right side inferior articulating facet and the pars of the L2 and L3 level were removed. The superior articulating process of the L3 and L4 level was removed on the same side. The disc space was identified and an annulotomy created with a #11 blade scalpel. The disc space was entered with ginna and spreaders. The endplates were prepared and a trial was placed into the disc space. A trial interbody cage was used and sized at a 10 mm. The [place] system was the instrumentation system used. Local autograft was used to pack the disc space in the anterior region. At that point, the interbody cage with local autograft was introduced into the disk space and positioned in the appropriate fashion. Again, local autograft was used to pack the posterior aspect of the disc space. Then, attention was turned towards placing the pedicle screws. The mammillary process of L2 and L3 were identified bilaterally. The high speed air drill was used to make a small pilot boat deckhand hole. The gear shift along with pedicle probe verification was created the pedicle screw trajectory. Each screw trajectory was tapped, pedicle probe verified, and then a MRI-compatible multi-axial pedicle screw was inserted. Screw sizes utilized: 6.5*45 at L2 and 6.5*55 at L3. At that point, small MRI-compatible rods were used to connect the screws on each side. Caps were removed at the L4 to S1. The luis was extended from the L2-S1.. Cross-table lateral x-ray demonstrated appropriate position of the hardware. The screw nuts were torqued to final tightness. The transverse process was decorticated with the high speed air drill. Local autograft was placed over the transverse process to perform an arthrodesis. A drain was tunneled out of the wound. Incision was closed in 3 layers. 1 Vicryl for fascia, 2-0 Vicryl for subcutaneous layer, mahendra for skin. Dressing was applied. Patient was gently emerged from anesthesia and was transferred to PACU in stable condition. PRE-OP/PRE-PROCEDURE DIAGNOSIS: Adjacent segment spondylolisthesis, L2/3, L3/4 lumbar stenosis with neurogenic claudication, degenerative scoliosis POST-OP/POST-PROCEDURE DIAGNOSIS: Adjacent segment spondylolisthesis, L2/3, L3/4 lumbar stenosis with neurogenic claudication, degenerative scoliosis ESTIMATED BLOOD LOSS: 450 mls SPECIMENS: None IMPLANTABLE DEVICES: Implant Name Type Inv. Item Serial No. Estimator Lot No. LRB No. Used Action PingerOSS [id number] BIOACTIVE BONE GRAFT SUBSTITUTE 5.0CUB CM Implant [place] [id number] N/A 1 Implanted CAGE TRITANIUM 6D [id number] SPINAL STERILE LATEX FREE LUMBAR POSTERIOR - [id number] Implant CAGE TRITANIUM 6D [id number] SPINAL STERILE LATEX FREE LUMBAR POSTERIOR [place] SPINE [id number] N/A 1 Implanted CAGE TRITANIUM 6D [id number] SPINAL STERILE LATEX FREE LUMBAR POSTERIOR - [id number] Implant CAGE TRITANIUM 6D [id number] (more content not included)... [facility] XR LUMBAR 2V AP/LATon 2022 XR LUMBAR 2V AP/LAT * * *Final Report* * * DATE OF EXAM: Dec 07 2022 12:52PM DI 5229 - XR LUMBAR 2V AP/LAT / PROCEDURE REASON: Lumbar adjacent segment disease with spondylolisthesis * * * * Physician Interpretation * * * * EXAMINATION: XR LUMBAR 2V AP/LAT CLINICAL INFORMATION: 57 years old Male with Lumbar adjacent segment disease with spondylolisthesis TECHNIQUE: Frontal and lateral intraoperative images of the lumbar spine timed 11:15 AM labeled #5 and #6. COMPARISON: Same-day intraoperative lumbar spine radiographs RESULT: Counting reference: Lumbosacral junction. L4-L5 is considered the level of the iliac crest. A single lateral image is obtained intraoperatively for surgical planning. Ongoing postsurgical changes of redo posterior instrumented fusion from L2 to S1 with transpedicular screws at all the levels, interbody cages at L2-L3 and L3-L4 and interval placement of vertical interconnecting rods. Surgical retractors are present. IMPRESSION: Intraoperative examination for surgical planning and documentation. . Television Station Manager: PSCB Transcribe Date/Time: Dec 07 2022 3:13P Dictated by : DONNY WOO DO This examination was interpreted and the report reviewed and electronically signed by: DONNY WOO DO on Dec 07 2022 3:15PM EST [id number] [facility] XR LUMBAR 2V AP/LAT * * *Final Report* * * DATE OF EXAM: Dec 07 2022 11:33AM DI 5229 - XR LUMBAR 2V AP/LAT / PROCEDURE REASON: Lumbar adjacent segment disease with spondylolisthesis * * * * Physician Interpretation * * * * EXAMINATION: XR LUMBAR 2V AP/LAT CLINICAL INFORMATION: 57 years old Male with Lumbar adjacent segment disease with spondylolisthesis TECHNIQUE: Frontal and lateral intraoperative image of the lumbar spine timed 11:20 AM labeled #3 and #4 COMPARISON: Same-day intraoperative lumbar spine radiographs, outside hospital CT lumbar spine 10/12/2022 RESULT: Counting reference: Lumbosacral junction. L4-L5 is considered the level of the iliac crest. A single lateral image is obtained intraoperatively for surgical planning. Ongoing postsurgical changes of redo posterior instrumented fusion now extending from L2 to S1 with placement of bilateral transpedicular screws. Interval placement of interbody cages at L2-L3 and L3-L4 and placement of RIGHT-sided vertical interconnecting luis at L2-L3 . Surgical retractors are present. IMPRESSION: Intraoperative examination for surgical planning and documentation. Television Station Manager: COURTNEY Transcribe Date/Time: Dec 07 2022 2:43P Dictated by : DONNY WOO DO This examination was interpreted and the report reviewed and electronically signed by: DONNY WOO DO on Dec 07 2022 2:46PM EST [id number] [facility] XR LUMBAR 2V AP/LAT * * *Final Report* * * DATE OF EXAM: Dec 07 2022 9:27AM DI 5229 - XR LUMBAR 2V AP/LAT / PROCEDURE REASON: Lumbar adjacent segment disease with spondylolisthesis * * * * Physician Interpretation * * * * EXAMINATION: XR LUMBAR 2V AP/LAT CLINICAL INFORMATION: 57 years old Male with Lumbar adjacent segment disease with spondylolisthesis TECHNIQUE: Frontal and lateral intraoperative images of the lumbar spine timed 9:20 AM labeled #1 and #2. COMPARISON: Outside hospital CT lumbar spine 10/12/2022 RESULT: Counting reference: Lumbosacral junction. L4-L5 is considered the level of the iliac crest. A single lateral image is obtained intraoperatively for surgical planning. Ongoing postsurgical changes of redo posterior instrumented fusion now extending from L2 to S1 with placement of bilateral transpedicular screws IMPRESSION: Intraoperative examination for surgical planning and documentation. . Television Station Manager: COURTNEY Transcribe Date/Time: Dec 07 2022 2:37P Dictated by : DONNY WOO DO This examination was interpreted and the report reviewed and electronically signed by: DONNY WOO DO on Dec 07 2022 2:40PM EST [id number] [facility] 11-29-2022 [facility] Telephone (NIQ) SUKHDEEP SIMENTAL ([id number]) 1965 M Date Time Provider Department 11/29/22 EDD MATHEW During your visit today, we recorded the following information about you: Moriah Ferguson 11/29/2022 9:50 AM Signed Patient called regarding a C/9 being filed for his Dec 07 surgery. He spoke to his [facility] contact and they said nothing has been filed yet. Please update patient. Juan Pablo Nova RN 11/29/2022 10:27 AM Signed C9 sent to provider for signature. Awaiting signature. Juan Pablo Nova RN 11/29/2022 12:20 PM Signed Signed C9 sent to [facility] and Mitra. Faxed verifications received. Kathe Lezama 12/05/2022 11:01 AM Signed Patient calling asking for an update on his C9 and surgery approval. He would like to know if nurse can reach out to mitra for an update and let him know. Juan Pablo Nova RN 12/05/2022 11:43 AM Signed Called Mitra and discussed patient's upcoming surgery. Per Mitra she did already explain to the patient that the information was submitted to the [employer] Worker for review and does take up to 5 business days for a decision. Juan Pablo Nova RN 12/05/2022 1:16 PM Signed Spoke with patient. Informed case is still on for Saturday and that I spoke with Mitra. Patient appreciative of call. Emily Rondon 12/06/2022 11:34 AM Addendum Mitra called from [facility], regarding patient surgery tomorrow. Surgery has been approved based on what it was shown on the medical record. Mitra wanted a called back # [phone] Emily Rondon 12/06/2022 11:35 AM Signed Received [facility] workers compensation forms. Scan in patient chart for review. Juan Pablo Nova RN 12/06/2022 1:09 PM Signed Called Mitra with no answer. Left message to return call. Wanted to get more information regarding her questions. Juan Pablo Nova RN 12/06/2022 2:00 PM Signed Spoke with Mitra who states surgery has been approved for the surgery requested and a 3 day stay after surgery. No further questions. Allergies As of Date: 11/29/2022 (No Known Allergies) Date Reviewed: 11/21/2022 Reviewed by: Cj Galloway APRN.MICA [employer] - Fully Assessed Reason for Visit: [facility] (Worker's Comp) [4136] Prescriptions as of 12/06/2022 - bumetanide (BUMEX) 1 mg tablet Take 1 tablet by mouth once daily. - CETIRIZINE HCL (ZYRTEC ORAL) Take by mouth. Prn - doxazosin (CARDURA) 4 mg tablet Take 4 mg by mouth. - FEROSUL 325 mg (65 mg iron) tablet Take 1 tablet by mouth every 12 (twelve) hours. - hydrOXYzine HCl (ATARAX) 25 mg tablet TAKE 1 TABLET BY MOUTH FOUR TIMES DAILY NEEDED MUST LAST 30 DAYS - irbesartan (AVAPRO) 300 mg tablet 1/2 tablet Orally Once a day for 60 days - metoclopramide HCl (REGLAN) 10 mg tablet Take 10 mg by mouth as needed. - mupirocin (BACTROBAN) 2 % ointment Apply 1/2 ointment with a cotton swab in each nostril 2x daily for five days preop - omeprazole (PRILOSEC) 20 mg capsule Take 1 capsule by mouth twice daily. - pioglitazone (ACTOS) 30 mg tablet - simvastatin (ZOCOR) 10 mg tablet Take 1 tablet by mouth once daily. - tamsulosin (FLOMAX) 0.4 mg Take 1 capsule by mouth once daily. - testosterone cypionate (DEPO-TESTOSTERONE) 100 mg/mL injection INJECT 1.5 ML INTO THE MUSCLE EVERY 2 WEEKS DIRECTED - tizanidine HCl (ZANAFLEX ORAL) daily at bedtime. 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 Corneal edema, unspecified [H18.20] 12/10/2013 Anxiety [F41.9] 12/27/2021 Essential hypertension [I10] 02/02/2020 Essential tremor [G25.0] 11/21/2022 Gastroesophageal reflux disease [K21.9] 12/27/2021 History of pulmonary embolism [Z86.711] 01/05/2022 Morbid obesity (HCC) [E66.01] 12/27/2021 ELIDA (obstructive sleep apnea) [G47.33] 12/27/2021 Secondary hyperparathyroidism (HCC) [N25.81] 11/21/2022 11/21/2022 Type 2 diabetes mellitus without complications *02/02/2020 Encounter Status:Closed by JUAN PABLO NOVA on 11/29/22 Normal [facility] CBC W Auto Differential pane l (Bld)on 11-21-2022 Basophils (Bld) [#/Vol] 0.04 10*3/uL Normal <0.11 [facility] Comment on above: Order Comment: Speci men Type: BLOOD SPECIMENOrdering Facility: [facility] Address: [address] [place] [address] Performed By: #### 5 7021-8 ####[facility] LABCLIA [id number] [place] [address] [place] Basophils/100 WBC (Bld) 0.8 % Normal [facility] Comment on above: Order Comment: Speci men Type: BLOOD SPECIMENOrdering Facility: [facility] Address: [address] [place] [address] Performed By: #### 5 7021-8 ####[facility] LABCLIA [id number] [place] [address] [place] Differential cell count method Nom (Bld) Auto Normal [facility] Comment on above: Order Comment: Speci men Type: BLOOD SPECIMENOrdering Facility: [facility] Address: [address] [place] [address] Performed By: #### 5 7021-8 ####[facility] LABCLIA [id number] [place] [address] [place] Eosinophils (Bld) [#/Vol] 0.11 10*3/uL Normal <0.46 [facility] Comment on above: Order Comment: Speci men Type: BLOOD SPECIMENOrdering Facility: [facility] Address: [address] [place], [place] [address] Performed By: #### 5 7021-8 ####[facility] LABCLIA [id number] [place] [address] [place] Eosinophils/100 WBC (Bld) 2.1 % Normal [facility] Comment on above: Order Comment: Speci men Type: BLOOD SPECIMENOrdering Facility: [facility] Address: [address] Performed By: #### 5 7021-8 ####[facility] LABIA [id number] [place] [address] [place] Erythrocyte distribution width (RBC) [Ratio] 12.4 % Normal 11.5-15.0 [facility] Comment on above: Order Comment: Speci men Type: BLOOD SPECIMENOrdering Facility: [facility] Address: [address] [place], [place] [address] Performed By: #### 5 7021-8 ####[facility] LABIA [id number] [place] [address] [place] Hematocrit (Bld) [Volume fraction] 42.9 % Normal 39.0-51.0 [facility] Comment on above: Order Comment: Speci men Type: BLOOD SPECIMENOrdering Facility: [facility] Address: [address] Performed By: #### 5 7021-8 ####[facility] LABIA [id number] [place] [address] [place] Hemoglobin (Bld) [Mass/Vol] 14.5 g/dL Normal 13.0-17.0 [facility] Comment on above: Order Comment: Speci men Type: BLOOD SPECIMENOrdering Facility: [facility] Address: [address] [place], [place] [address] Performed By: #### 5 7021-8 ####[facility] LABCLIA [id number] [place] [address] [place] Immature granulocytes (Bld) [#/Vol] 10*3/uL Normal <0.10 [facility] Comment on above: Order Comment: Speci men Type: BLOOD SPECIMENOrdering Facility: [facility] Address: [address] [place], [place] [address] Performed By: #### 5 7021-8 ####[facility] LABCLIA [id number] [address] [place] Immature granulocytes/100 WBC (Bld) 0.4 % Normal [facility] Comment on above: Order Comment: Speci men Type: BLOOD SPECIMENOrdering Facility: [facility] Address: [address] [place], [place] [address] Performed By: #### 5 7021-8 ####[facility] LABIA [id number] [place] [address] [place] Lymphocytes (Bld) [#/Vol] 1.45 10*3/uL Normal 1.00-4.00 [facility] Comment on above: Order Comment: Speci men Type: BLOOD SPECIMENOrdering Facility: [facility] Address: [address] [place] [address] Performed By: #### 5 7021-8 ####[facility] LABCLIA [id number] [address] [place] Lymphocytes/100 WBC (Bld) 27.4 % Normal [facility] Comment on above: Order Comment: Speci men Type: BLOOD SPECIMENOrdering Facility: [facility] Address: [address] [place] [address] Performed By: #### 5 7021-8 ####[facility] LABCLIA [id number] [place] [address] [place] MCH (RBC) [Entitic mass] 31.7 pg Normal 26.0-34.0 [facility] Comment on above: Order Comment: Speci men Type: BLOOD SPECIMENOrdering Facility: [facility] Address: [address] [place] [address] Performed By: #### 5 7021-8 ####[facility] LABCLIA [id number] [place] [address] [place] MCHC (RBC) [Mass/Vol] 33.8 g/dL Normal 30.5-36.0 [facility] Comment on above: Order Comment: Speci men Type: BLOOD SPECIMENOrdering Facility: [facility] Address: [address] [place] [address] Performed By: #### 5 7021-8 ####[facility] LABCLIA [id number] [place] [address] [place] MCV (RBC) [Entitic vol] 93.7 fL Normal 80.0-100.0 [facility] Comment on above: Order Comment: Speci men Type: BLOOD SPECIMENOrdering Facility: [facility] Address: [address] [place], [place] [address] Performed By: #### 5 7021-8 ####[facility] LABIA [id number] [place] [address] [place] Monocytes (Bld) [#/Vol] 0.49 10*3/uL Normal <0.87 [facility] Comment on above: Order Comment: Speci men Type: BLOOD SPECIMENOrdering Facility: [facility] Address: [address] [place], [place] [address] Performed By: #### 5 7021-8 ####[facility] LABIA [id number] [address] [place] Monocytes/100 WBC (Bld) 9.2 % Normal [facility] Comment on above: Order Comment: Speci men Type: BLOOD SPECIMENOrdering Facility: [facility] Address: [address] [place] [address] Performed By: #### 5 7021-8 ####[facility] LABCLIA [id number] [place] [address] [place] Neutrophils (Bld) [#/Vol] 3.19 10*3/uL Normal 1.45-7.50 [facility] Comment on above: Order Comment: Speci men Type: BLOOD SPECIMENOrdering Facility: [facility] Address: [address] Performed By: #### 5 7021-8 ####[facility] LABCLIA [id number] [place] [address] [place] Neutrophils/100 WBC (Bld) 60.1 % Normal [facility] Comment on above: Order Comment: Speci men Type: BLOOD SPECIMENOrdering Facility: [facility] Address: [address] Performed By: #### 5 7021-8 ####[facility] LABCLIA [id number] [place] [address] [place] Nucleated RBC (Bld) [#/Vol] 10*3/uL Normal <0.01 [facility] Comment on above: Order Comment: Speci men Type: BLOOD SPECIMENOrdering Facility: [facility] Address: [address] [place] [address] Performed By: #### 5 7021-8 ####[facility] LABCLIA [id number] [place] [address] [place] Nucleated RBC/100 WBC (Bld) [Ratio] 0.0 /100 WBC Normal [facility] Comment on above: Order Comment: Speci men Type: BLOOD SPECIMENOrdering Facility: [facility] Address: [address] [place] [address] Performed By: #### 5 7021-8 ####[facility] LABCLIA [id number] [place] [id number] [place] Platelet mean volume (Bld) [Entitic vol] 9.4 fL Normal 9.0-12.7 [facility] Comment on above: Order Comment: Speci men Type: BLOOD SPECIMENOrdering Facility: [facility] Address: [address] [place] [address] Performed By: #### 5 7021-8 ####[facility] LABCLIA [id number] [place] [address] [place] Platelets (Bld) [#/Vol] 222 10*3/uL Normal 150-400 [facility] Comment on above: Order Comment: Speci men Type: BLOOD SPECIMENOrdering Facility: [facility] Address: [address] [place] [address] Performed By: #### 5 7021-8 ####[facility] LABCLIA [id number] [place] [address] [place] RBC (Bld) [#/Vol] 4.58 10*6/uL Normal 4.20-6.00 [facility] Comment on above: Order Comment: Speci men Type: BLOOD SPECIMENOrdering Facility: [facility] Address: [address] [place], [place] [address] Performed By: #### 5 7021-8 ####[facility] LABCLIA [id number] [place] [address] [place] WBC (Bld) [#/Vol] 5.30 10*3/uL Normal 3.70-11.00 [facility] Comment on above: Order Comment: Speci men Type: BLOOD SPECIMENOrdering Facility: [facility] Address: [address] [place], [place] [address] Performed By: #### 5 7021-8 ####[facility] LABCLIA [id number] [place] [address] [place] CONFIRM BLOOD TYPEon 023 ABO A Normal [facility] Comment on above: Order Comment: Speci men Type: BLOOD SPECIMENOrdering Facility: [facility] Address: [address] [place] [address] Performed By: #### C ONABO ####CC [facility] BLOOD BANKCLIA [id number] [address] STATES OF [facility] Rh Nom (Bld) Negative Normal [facility] Comment on above: Order Comment: Speci men Type: BLOOD SPECIMENOrdering Facility: [facility] Address: [address] Performed By: #### C ONABO ####CC [facility] B[facility] BANKIA [id number] [address] OF [facility] Comprehensive metabolic 2000 panelon 11-21-2022 Albumin [Mass/Vol] 4.3 g/dL Normal 3.9-4.9 [facility] Comment on above: Order Comment: Speci men Type: BLOOD SPECIMENOrdering Facility: [facility] Address: [address] Performed By: #### 2 4323-8 ####[facility] LABCLIA [id number] [place] [address] [place] ALP [Catalytic activity/Vol] 68 U/L Normal 38-113 [facility] Comment on above: Order Comment: Speci men Type: BLOOD SPECIMENOrdering Facility: [facility] Address: [address] [place] [address] Performed By: #### 2 4323-8 ####[facility] LABCLIA [id number] [place] [address] [place] ALT [Catalytic activity/Vol] 16 U/L Normal 10-54 [facility] Comment on above: Order Comment: Speci men Type: BLOOD SPECIMENOrdering Facility: [facility] Address: [address] Performed By: #### 2 4323-8 ####[facility] LABCLIA [id number] [place] [address] [place] Anion gap [Moles/Vol] 10 mmol/L Normal 9-18 [facility] Comment on above: Order Comment: Speci men Type: BLOOD SPECIMENOrdering Facility: [facility] Address: [address] [place] [address] Performed By: #### 2 4323-8 ####[facility] LABCLIA [id number] [place] [address] [place] AST [Catalytic activity/Vol] 21 U/L Normal 14-40 [facility] Comment on above: Order Comment: Speci men Type: BLOOD SPECIMENOrdering Facility: [facility] Address: [address] [place] [address] Performed By: #### 2 4323-8 ####[facility] LABCLIA [id number] [place] [address] [place] Bilirubin [Mass/Vol] 0.5 mg/dL Normal 0.2-1.3 [facility] Comment on above: Order Comment: Speci men Type: BLOOD SPECIMENOrdering Facility: [facility] Address: [address] [place] [address] Performed By: #### 2 4323-8 ####[facility] LABCLIA [id number] [place] [address] [place] Calcium [Mass/Vol] 9.9 mg/dL Normal 8.5-10.2 [facility] Comment on above: Order Comment: Speci men Type: BLOOD SPECIMENOrdering Facility: [facility] Address: [address] [place] [address] Performed By: #### 2 4323-8 ####[facility] LABCLIA [id number] [place] [address] [place] Chloride [Moles/Vol] 106 mmol/L High 97-105 [facility] Comment on above: Order Comment: Speci men Type: BLOOD SPECIMENOrdering Facility: [facility] Address: [address] [place] [address] Performed By: #### 2 4323-8 ####[facility] LABCLIA [id number] [address] CO2 [Moles/Vol] 27 mmol/L Normal 22-30 [facility] Comment on above: Order Comment: Speci men Type: BLOOD SPECIMENOrdering Facility: [facility] Address: [address] [place] [address] Performed By: #### 2 4323-8 ####[facility] LABIA [id number] [address] OF [facility] Creatinine [Mass/Vol] 1.22 mg/dL Normal 0.73-1.22 [facility] Comment on above: Order Comment: Speci men Type: BLOOD SPECIMENOrdering Facility: [facility] Address: [address] [place] [address] Performed By: #### 2 4323-8 ####[facility] LABIA [id number] [address] Creatinine and Glomerular filtration rate.predicted panel (S/P/Bld) 68 mL/min/1.73m??? Normal >=60 [facility] Comment on above: Order Comment: Speci men Type: BLOOD SPECIMENOrdering Facility: [facility] Address: [address] [place] [address] Result Comment: Leah mated Glomerular Filtration Rate (eGFR) is calculated using the 2020 CKD-EPI creatinine equation. This equation utilizes serum creatinine, sex, and age as parameters. The creatinine assay has traceable calibration to isotope dilution-mass spectrometry. Refer to KDIGO guidelines for clinical interpretation. In patients with unstable renal function, e.g. those with acute kidney injury, the eGFR may not accurately reflect actual GFR. Performed By: #### 2 4323-8 ####[facility] LABIA [id number] [place] [id number] [place] Glucose [Mass/Vol] 111 mg/dL High 74-99 [facility] Comment on above: Order Comment: Speci men Type: BLOOD SPECIMENOrdering Facility: [facility] Address: [address] [place] [address] Result Comment: The [place] [employer] Association (ADA) provides guidance for cutoff values for fasting glucose and random glucose. The ADA defines fasting as no caloric intake for at least 8 hours. Fasting plasma glucose results between 100 to 125 mg/dL indicate increased risk for diabetes (prediabetes). Fasting plasma glucose results greater than or equal to 126 mg/dL meet the criteria for diagnosis of diabetes. In the absence of unequivocal hyperglycemia, results should be confirmed by repeat testing. In a patient with classic symptoms of hyperglycemia or hyperglycemic crisis, random plasma glucose results greater than or equal to 200 mg/dL meet the criteria for diagnosis of diabetes. Reference: Standards of Medical Care in Diabetes 2016, [place] [employer]. Diabetes Care. 2016.39(Suppl 1). Performed By: #### 2 4323-8 ####[facility] LABCLIA [id number] [place] [address] [place] Potassium [Moles/Vol] 4.2 mmol/L Normal 3.7-5.1 [facility] Comment on above: Order Comment: Toneyi tim Type: BLOOD SPECIMENOrdering Facility: [facility] Address: [address] [place] [address] Performed By: #### 2 4323-8 ####[facility] LABCLIA [id number] [place] [address] [place] Protein [Mass/Vol] 7.0 g/dL Normal 6.3-8.0 [facility] Comment on above: Order Comment: Speci men Type: BLOOD SPECIMENOrdering Facility: [facility] Address: [address] [place] [address] Performed By: #### 2 4323-8 ####[facility] LABCLIA [id number] [place] [address] [place] Sodium [Moles/Vol] 143 mmol/L Normal 136-144 [facility] Comment on above: Order Comment: Speci men Type: BLOOD SPECIMENOrdering Facility: [facility] Address: [address] [place] [address] Performed By: #### 2 4323-8 ####[facility] LABIA [id number] [address] [place] Urea nitrogen [Mass/Vol] 22 mg/dL Normal 9-24 [facility] Comment on above: Order Comment: Speci men Type: BLOOD SPECIMENOrdering Facility: [facility] Address: [place] [address] Performed By: #### 2 4323-8 ####[facility] LABIA [id number] [address] OF [place] [id number] 11-21-2022 ECG01 Ventricular Rate : 6 5 BPM Atrial Rate : 65 BPM P-R Interval : 180 ms QRS Duration : 98 ms Q-T Interval : 440 ms QTC Calculation(Bazett) : 457 ms Calculated P [place] : 0 degrees Calculated R [place] : -10 degrees Calculated T [place] : 49 degrees NORMAL SINUS RHYTHM NORMAL ECG Confirmed by SHANIA RESTREPO M.D. ([id number]) on 11/22/2022 12:00:34 PM NAME : SUKHDEEP SIMENTAL PID : [id number] : 1965 Gender : Male Race : ORD : Procedure Date : Nov 21 2022 10:59:49 Edit Date : Nov 22 2022 12:00:38 Diagnosis: NORMAL SINUS RHYTHM NORMAL ECG Confirmed by SHANIA RESTREPO M.D. ([id number]) on 11/22/2022 12:00:34 PM Test Reason : SURGERY Location : 545 : [facility] Overread By : SHANIA RESTREPO M.D. Edited By : SHANIA RESTREPO M.D. Referred By : EDD MATHEW Acquired by : Santiago DANIELLE [facility] HISTORY PHYSICALon HISTORY PHYSICAL HNO ID: [id number] Author: Cj Galloway APRN.CNP Service: ? Author Type: Nurse Practitioner Type: HANDP Filed: 11/23/2022 8:29 AM Note Text: HISTORY AND PHYSICAL EXAMINATION SERVICE DATE: 11/21/2022 SERVICE TIME: 10:51 AM PRIMARY CARE PHYSICIAN: Derick Isabel MD REASON FOR VISIT: Sukhdeep Simental is a 57 year old male who is scheduled for Procedure(s) (LRB): TLIF DECOMPRESSION LAMINECTOMY INTERBODY FUSION LUMBAR POSTERIOR (PLIF) LEVEL 1 (N/A) DECOMPRESSION LAMINECTOMY INTERBODY FUSION LUMBAR POSTERIOR (PLIF) LEVEL 2 (N/A) POSTERIOR SEGMENTAL INSTRUMENTATION FOLLOWING LUMBAR FUSION 3-6 LEVELS (N/A) INSERTION INTERBODY BIOMED DEVICE(S) W/ANT INSTR ANCHORING TO DISC SPACE W/INTERBODY FUSION,EA INTERSPACE (N/A) at the request of Dr. Edd Mathew for consultation. My final recommendation will be communicated back to the requesting physician by way of shared medical record or letter. 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 Patient denies any chest pain, shortness of breath, palpitations, fever/chills, nausea/vomiting, fatigue, or diarrhea. 8/10 pain at today's visit. Recommended for above surgery. PAST MEDICAL HISTORY Diagnosis Date Central corneal ulcer Herpes simplex iridocyclitis Hypertension PAST SURGICAL HISTORY Procedure Laterality Date PAST SURGICAL HISTORY OF knee replacment right PAST SURGICAL HISTORY OF kidney stones removed FAMILY HISTORY Problem Relation Age of Onset Cancer Father Diabetes Mother Detached Retina Maternal Uncle Hypertension Maternal Uncle SOCIAL HISTORY: Social History Tobacco Use Smoking status: Never Smokeless tobacco: Never Vaping Use Vaping Use: Never used Substance Use Topics Alcohol use: No Drug use: No MEDICATIONS: Prior to Admission medications as of 11/21/22 1054 Medication Sig Last Dose Taking metoclopramide HCl (REGLAN) 10 mg tablet Take 10 mg by mouth as needed. Taking Yes FEROSUL 325 mg (65 mg iron) tablet Take 1 tablet by mouth every 12 (twelve) hours. Taking Yes hydrOXYzine HCl (ATARAX) 25 mg tablet TAKE 1 TABLET BY MOUTH FOUR TIMES DAILY NEEDED MUST LAST 30 DAYS Taking Yes mupirocin (BACTROBAN) 2 % ointment Apply 1/2 ointment with a cotton swab in each nostril 2x daily for five days preop Taking Yes doxazosin (CARDURA) 4 mg tablet Take 4 mg by mouth. Taking Yes irbesartan (AVAPRO) 300 mg tablet 1/2 tablet Orally Once a day for 60 days Taking Yes pioglitazone (ACTOS) 30 mg tablet Taking Yes bumetanide (BUMEX) 1 mg tablet Take 1 tablet by mouth once daily. Taking Yes tamsulosin (FLOMAX) 0.4 mg Take 1 capsule by mouth once daily. Taking Yes tizanidine HCl (ZANAFLEX ORAL) daily at bedtime. Taking Yes traZODone (DESYREL) 150 mg tablet Taking Yes simvastatin (ZOCOR) 10 mg tablet Take 1 tablet by mouth once daily. Taking Yes testosterone cypionate (DEPO-TESTOSTERONE) 100 mg/mL injection INJECT 1.5 ML INTO THE MUSCLE EVERY 2 WEEKS DIRECTED Taking Yes CETIRIZINE HCL (ZYRTEC ORAL) Take by mouth. Prn Taking Yes omeprazole (PRILOSEC) 20 mg capsule Take 1 capsule by mouth twice daily. No medication comments found. CURRENT ALLERGIES: ALLERGIES No Known Allergies Covid Immunization Dates Overdue - Covid-19 Vaccine (1) Overdue - never done No completion, postpone, frequency change, or communication history exists for this topic. REVIEW OF SYSTEMS: PAIN ASSESSMENT: Pain Pain Level: 9 Pain Location: Back-Lower (right leg) Description: Aching, Bloating, Sharp Frequency: Continuous Intervention/Comfort measure: Declined General: No weight loss, malaise or fevers. Neuro: Postive for essential tremor, Negative for TIA's Headaches Seizures Respiratory: Positive for ELIDA, Negative for Current cough, Pneumonia within 6 weeks (date) Cardiovascular: Positive for: Hypertension, Negative for CAD, Chest Pain, CHF GI: Positive for GERD, Negative for Abdominal pain, Difficulty swallowing : No history of dysuria, frequency or incontinence,, stones or chronic kidney disease Endocrine: Diabetes Mellitus on oral agent, hyperparathyroidism Hematology: hx of pulmonary embolism, resolved July 2021, no thinners Oncology: No history of CA metastasis, chemo within 30 days, or radiotherapy within 90 days. Has not lost 10% of body wt in 6 months. No history of oncological symptoms or problems. Psych: Anxiety Musculoskeletal: Negative for joint pain or swelling, back pain or muscle pain. Skin: (more content not included)... Normal [facility] HbA1c (Bld)on 11-21-2022 Average glucose Estimated from glycated hemoglobin (Bld) [Mass/Vol] 111 mg/dL Normal [facility] Comment on above: Order Comment: Shahrzad dumont Type: BLOOD SPECIMENOrdering Facility: [facility] Address: [address] [place] [address] Result Comment: eAG: (Estimated average glucose) is a calculated value from HgbA1c and is apprenticeship representative of the average blood glucose level in the last 2-3 month period. Performed By: #### 5 5454-3 ####[facility] LABCLIA [id number] [address] HbA1c (Bld) [Mass fraction] 5.5 % Normal 4.3-5.6 [facility] Comment on above: Order Comment: Shahrzad dumont Type: BLOOD SPECIMENOrdering Facility: [facility] Address: [address] [place] [address] Result Comment: [place] Diabetes Association guidelines indicate that patients with HgbA1c in the range 5.7-6.4% are at increased risk for development of diabetes, and intervention by lifestyle modification may be beneficial. HgbA1c greater or equal to 6.5% is considered diagnostic of diabetes. Performed By: #### 5 5454-3 ####[facility] LABCLIA [id number] [address] TYPE AND SCREEN,30 DAYon ABO A Normal [facility] Comment on above: Order Comment: Shahrzad dumont Type: BLOOD SPECIMENOrdering Facility: [facility] Address: [address] [place] [address] Performed By: #### T SCR30 ####[facility] BLOOD BANKCLIA [id number] [address] HISTORICAL AB SCR STATUS Negative Normal [facility] Comment on above: Order Comment: Speci men Type: BLOOD SPECIMENOrdering Facility: [facility] Address: [address] [address] Performed By: #### T SCR30 ####CC MAIN BLOOD BANKCLIA [id number] [address] OF [place] Rh Nom (Bld) Negative Normal [facility] Comment on above: Order Comment: Speci men Type: BLOOD SPECIMENOrdering Facility: [facility] Address: [address] [place] [address] Performed By: #### T SCR30 ####CC MAIN BLOOD BANKCLIA [id number] [address] OF [facility] CNOVon 11-05-2022 CNOV Office Visit (NSFRVW ) SUKHDEEP SIMENTAL ([id number]) 1965 M Date Time Provider Department 11/05/22 2:00 PM EDD MATHEW NSFRVW During your visit today, we recorded the following information about you: Pulse Blood pressure Weight Height 66/minute 156/84 124 kg 1.753 m Edd Mathew MD 11/09/2022 8:29 AM Signed SPINE SURGERY NEW PATIENT This is an in-person visit. PCP: Derick Isabel MD REFERRING PROVIDER: Jason Kiser SUBJECTIVE HISTORY OF PRESENT ILLNESS: Sukhdeep Simental is a 57 year old male. Complains of lower back pain radiating to bilateral hips and down both thighs. Right leg pain > Left leg pain. Mild walking difficulty. The pain averages around 8/10. It is affecting the patient daily activities. The pain is worse with activities and partially relieved with rest. It has been debilitating to the patient. He denies any weakness, bowel or bladder incontinence. He is also complaining of acute numbness and tingling in toes of bilateral feet. He tried Percocet and Tramadol for pain relief. He received spinal injections which gave him minimal pain relief. He underwent an L4-S1 fusion in the past. CHIEF COMPLAINT: Lower back and bilateral leg pain PRECIPITATING EVENT: None DURATION OF SYMPTOMS: Greater Than 1 Year PAIN EVALUATION 11/05/2022 1401 Pain Level: 8 Pain Location: Back-Lower Description: Sharp;Burning;Aching Frequency: Continuous Pain Radiation: low back to bilateral hips and thighs Aggravating Factors: Constant Alleviating Factors: Medications Pain Ratio: Pain in the back is greater than in the leg DERMATOMAL DISTRIBUTION: Not applicable AMBULATORY STATUS: Impaired Community Distances ANTIPLATELET OR ANTICOAGULATION STATUS: No PREVIOUS CONSERVATIVE TREATMENTS: Percocet Tramadol Injections PREVIOUS SPINAL SURGERY: SURGERY #1: L4-S1 fusion ACTIVE PROBLEM LIST Herpes Simplex Iridocyclitis Corneal Edema, Unspecified PAST MEDICAL HISTORY Diagnosis Date Central corneal ulcer Herpes simplex iridocyclitis Hypertension PAST SURGICAL HISTORY Procedure Laterality Date PAST SURGICAL HISTORY OF knee replacment right PAST SURGICAL HISTORY OF kidney stones removed FAMILY HISTORY Problem Relation Age of Onset Cancer Father Diabetes Mother Detached Retina Maternal Uncle Hypertension Maternal Uncle Social History Tobacco Use Smoking status: Never Smokeless tobacco: Never Substance Use Topics Alcohol use: No Drug use: No ALLERGIES No Known Allergies MEDICATIONS: doxazosin (CARDURA) 4 mg tablet Take 4 mg by mouth. irbesartan (AVAPRO) 300 mg tablet 1/2 tablet Orally Once a day for 60 days pioglitazone (ACTOS) 30 mg tablet bumetanide (BUMEX) 1 mg tablet Take 1 tablet by mouth once daily. tamsulosin (FLOMAX) 0.4 mg Take 1 capsule by mouth once daily. tizanidine HCl (ZANAFLEX ORAL) traZODone (DESYREL) 150 mg tablet simvastatin (ZOCOR) 10 mg tablet Take 1 tablet by mouth once daily. testosterone cypionate (DEPO-TESTOSTERONE) 100 mg/mL injection INJECT 1.5 ML INTO THE MUSCLE EVERY 2 WEEKS DIRECTED CETIRIZINE HCL (ZYRTEC ORAL) Take by mouth. Prn [START ON 12/02/2022] mupirocin (BACTROBAN) 2 % ointment Apply 1/2 ointment with a cotton swab in each nostril 2x daily for five days preop valACYclovir (VALTREX) 500 mg tablet Take 1 tablet by mouth once daily. (Patient not taking: Reported on 11/05/2022) prednisoLONE acetate (PRED FORTE, ECONOPRED PLUS) 1 % ophthalmic suspension Use 1 Drop in the right eye once daily. (Patient not taking: Reported on 11/05/2022) buprenorphine (BUTRANS) 10 mcg/hour Apply 1 Patch as directed once each week. (Patient not taking: Reported on 11/05/2022) Brimonidine-Timolol (COMBIGAN) 0.2-0.5 % drop Use 1 Drop in the right eye twice daily. (Patient not taking: Reported on 11/05/2022) voriconazole (VFEND) 1% Ophth Drops ([facility]) Use 1 Drop in the right eye every 2 hours. (Patient not taking: Reported on 11/05/2022) voriconazole (VFEND) 200 mg tablet Take 1 tablet by mouth twice daily. (Patient not taking: Reported on 11/05/2022) chlorhexidine gluconate 0.2 mg/ml in NS ophthalmic drops Use in the right eye every hour. (Patient not taking: Reported on 11/05/2022) TETRAHYDROZOLINE HCL (EYE DROPS OPHTHALMIC) Use in eyes. voriconizole 1% q hour OD (Patient not taking: Reported on 11/05/2022) traMADol (ULTRAM) 50 mg tablet Take 50 mg by mouth every 6 hours as needed. (Patient not taking: Reported on 11/05/2022) amLODIPine (NORVASC) 10 mg tablet Take 10 mg by mouth once daily. (Patient not taking: Reported on 11/05/2022) carvedilol (COREG) 25 mg tablet Take 25 mg by mouth twice daily with meals. (Patient not taking: Reported on 11/05/2022) lansoprazole (PREVACID) 30 mg capsule Take 30 mg by mouth once daily. (Patient not taking: Reported on 11/05/2022) FLUoxetine (PROZAC) 20 mg capsule Take 20 mg by mouth on (more content not included)... [facility] 36on 10-18-2022 36 [place] in radiology called to notify that patient's CT scan showed significant findings. [facility] Ambulatory Visit Summaryon 0 10-17-2022 Ambulatory Visit Summary SUKHDEEP SIMENTAL :1965 Visit Date:10/17/2022 Ambulatory Visit Instructions Your Care Team Attending Physician - TAVIA JACOBS, Cj Jj Primary Care Physician - Birdie JACOBS, Derick Referring Physician - Derick Isabel MD This Is Your Medications List acetaminophen-oxycodon e (acetaminophen-oxycodo ne 325 mg-10 mg oral tablet) bumetanide (bumetanide 1 mg Tab) doxazosin (doxazosin 4 mg Tab) ferrous sulfate (FeroSul 325 mg oral tablet) irbesartan (Avapro 300 mg Tab) metoclopramide (metoclopramide 10 mg Tab) multivitamin with minerals (Multivitamin, Therapeutic w/ Minerals) omeprazole (omeprazole 20 mg Cap-DR) pioglitazone (pioglitazone 30 mg Tab) simvastatin sucralfate (sucralfate 1 g Tab) tamsulosin (tamsulosin 0.4 mg Cap) testosterone (Testosterone Cypionate 200 mg/mL intramuscular solution) tizanidine (Zanaflex 4 mg Tab) Procedures Performed Cystoscopic removal of ureteric stent (07/13/2021), ESWL of kidney (07/13/2021), Cystoscopic insertion of ureteric stent (06/29/2021), Gastric sleeve (04/2021), Cystoscopy (03/28/2020), ESWL (extracorporeal shockwave lithotripsy) of ureteric calculus (02/24/2020), Colonoscopy (12/18/2017), cysto rt retrograde rt ureteroscopy rt holmium laser lithotripsy rt j stent with string (05/25/2016), Ankle joint operations, Bilateral replacement of knee joints, Cystoscopy, Lumbar spinal fusion, Meniscectomy. Discharge Vitals Heart Rate (Peripheral) 70 Respiratory Rate 16 Blood Pressure 118/84 Height 175 cm Height 69 in Weight 124 kg Weight 272.8 lb BMI 40.49 What to do next Scheduled Follow-Up Appointments Saturday 9:15 AM EST With: LIDIA JACOBS, eCcelia Jj Where: [facility] [place] Normal [facility] [place] MYELOGRAM LUMBARon 2022 [place] MYELOGRAM LUMBAR Addendum: Reference air kerma is 0.19 mGy. Electronically signed: Cj Hernandez. [place] MYELOGRAM LUMBAR 10/12/2022 10:07 AM CLINICAL INDICATIONS: Lumbar radiculopathy. History of low back pain with prior fusion surgery in 2019. INFORMED CONSENT: Reason for procedure was discussed with the patient. The procedure expectations risks benefits options and alternatives were discussed. All the questions were answered. The patient understood that results cannot be guaranteed. The procedure is indicated and risks are acceptable. Consent was obtained. MEDICATIONS: 2 mg of versed and 50 micrograms of Fentanyl was used for moderate sedation monitored under my direction. Total physician intra-service time of sedation was 10 minutes. The patient's vital signs were monitored throughout the procedure and recorded by the nurse. Performing physician:Dr. Mg Start time: 1019 End time: 102 Conscious sedation was used for the lumbar myelogram due to patient significant back pain and discomfort and anxiety. Timeout: Firth protocol timeout verification performed. PROCEDURE: Estimated blood loss: 1 mL. Fluoroscopy time: 19 seconds Number of fluoroscopic images:5 CONTRAST: 15 mL Omnipaque 180 FINDINGS: After the consent was obtained and time out was performed, the patient was prepped and draped in the usual sterile fashion. Utilizing fluoroscopic guidance, L4-5 interspace was selected for the procedure. 1 percent lidocaine was used for local anesthesia. A 22 gauge needle was placed into the subarachnoid space under fluoroscopic guidance. The location of the needle was confirmed by CSF return. Approximately 15 mL of Omnipaque 180 was injected and presence of the contrast in the intrathecal space was documented by AP, lateral, and bilateral obliques views. Significant extrinsic indentation and compression on the anterior thecal sac above the fusion level at L3-4. Evidence of posterior spinal hardware fusion at L4-S1 level with laminectomy at L4 and L5. The patient tolerated the procedure well and was sent for CT lumbar myelogram. IMPRESSION: Successful lumbar spine myelogram. Please see separate CT lumbar spine report for detailed findings. Electronically signed: Parvin Mg. [facility] Comment on above: Order Comment: Emiliano islas requested 36on 10-05-2022 36 Patient has concerns about IV contrast with the CT Myelogram. His kidney function is at 18% so he cannot have the additional contrast through IV. Spoke to Fredy in radiology, who checked with one of the CT techs, who explained they do not use IV contrast, only the contrast injected through the spine. The patient verbalized understanding to this information and will follow through with his myelogram on 10/12. Normal [facility] CT LUMBAR SPINE W IV CONTRAS Ton 10-04-2022 CT LUMBAR SPINE W IV CONTRAST CT LUMBAR SPINE W IV CONTRAST 10/12/2022 10:37 AM CLINICAL INDICATIONS: Lumbar radiculopathy, spinal stenosis TECHNIQUE: Multi detector CT axial slices of the lumbar spine are obtained following the administration of intrathecal contrast. Volumetric acquisition sagittal, coronal, and 3-D reconstructions were performed and reviewed on a separate workstation. All CT scans at this facility use dose modulation, iterative reconstruction, and/or weight based dosing when appropriate to reduce radiation dose to as low as reasonably achievable. COMPARISON: CT myelogram 02/28/2021 FINDINGS: There are 5 lumbar-type nonrib-bearing vertebrae. There is a levoconvex curvature of the lumbar spine. There is minimal 1 to 2 mm of retrolisthesis of L3 on L4 and 1 to 2 millimeters of anterolisthesis of L4 and L5. There is moderate degenerative disc disease at L2-L3 and L3-L4 with vacuum disc phenomena, worse from prior. Mild degenerative changes of the sacroiliac joints. There is sclerosis of the right sacrum, possibly bone island. There is redemonstration of surgical posterior screw and luis fixation of L5-S1 as well as laminectomy changes at these levels. Hardware configuration is similar to prior. There are no prosthetic or periprosthetic fractures. There are no periprosthetic lucencies. At L4-L5 and L5-S1 there are partial fusion changes of the vertebral bodies. Partial osseous bridging on the left at the postsurgical levels. Conus medullaris tip is at the approximate L1 level. There is a masslike filling defect or punching of the cauda equina nerve roots at the L2-L3 level, particularly on the left, worsened from prior. There is also bunching of the cauda equina nerve roots just inferior to severe stenosis at L3. At L1-L2 there is a mild disc bulge and mild to moderate facet degeneration, particularly on the right. There is mild bilateral neural foraminal stenosis. These findings are similar to slightly worsened from prior exam. At L2-L3, there is moderate disc osteophyte complex and moderate facet degeneration. There is mild spinal canal stenosis. There is mild to moderate bilateral neural foraminal stenosis, greater on the left. These findings are similar prior exam. At L3-L4, there is new severe spinal canal stenosis with only a small amount of intrathecal contrast seen posterior right within the canal. Similar hypertrophic postoperative changes of the facets. Ill-defined material fills the neural foramina bilaterally. These findings have significantly progressed from prior. At L4-L5 there is mild to moderate disc osteophyte complex and postsurgical changes of the facets. There is no significant spinal canal stenosis. There is likely mild to moderate bilateral neural foraminal stenosis, greater on the right. These findings are similar to prior exam. At L5-S1, there is moderate disc osteophyte complex and postsurgical changes of the facets. There is no significant thecal sac narrowing. There is at least moderate neural foraminal stenosis on the left and moderate to severe on the right. These findings are similar to prior exam. There is an approximately 3 mm left renal calculus. Suggestion of multiple stones within the proximal right ureter, measuring up to 8mm. There is thickening of the left adrenal gland with questionable nodular indeterminate density area superiorly. Postsurgical changes of the epigastric region. IMPRESSION: 1.Interval worsening of spinal canal stenosis at L3-L4 with near complete myelographic block with small amount of contrast seen traversing this level. Ill-defined soft tissue fills the neural foramina at this level as well. In addition there is an ill-defined masslike filling defect within the spinal canal at the L2-L3 level which may be due to clumping of the nerve roots or mass lesion. Further evaluation with MRI with contrast recommended. 2.Suggestion of multiple stones within the proximal right ureter and questionable nodular lesion of the left adrenal gland. Further evaluation with adrenal protocol CT abdomen pelvis recommended. Significant findings were instructed to be communicated to the ordering clinician by the credit card control clerk at the time of dictation, on 10/18/2022 at 2:47 PM Electronically signed: Abdias Shannon. Normal [facility] Lab Reportson 09-14-2022 Lab Reports [id number] 0CD:127 Normal [facility] Physician Referralon 023 Physician Referral [id number] 0CD:127 [facility] Follow-Upon 08-15-2022 Follow-Up [id number] Sukhdeep Simental 1965 M Date Provider Department Center 08/15/2022 Yulissa-JASON [facility] ORTHO MPORTHO Family History Problem Relation Age of Onset Dementia Mother Esophageal cancer Father Alcohol abuse Father Family Status - Relation Status Age at Mother Alive Father Level of Service:[id number] [place] OFFICE/OUTPATIENT ESTABLISHED LOW MDM 20-29 MIN () Reason for Visit and Comments: Follow-up [333092] - [facility] packet to get surgery approved [facility] 36on 08-10-2022 36 Per juwan agustin p is an appt to fill out pre-op paperwork. Appt scheduled for next week. [facility] Auth for Release of Medical Recordson 08-09-2022 Auth for Release of Medical Records [id number] CD:127 [facility] Patient Educationon 07-17-19 23 Patient Education Nephrology Dietary Guidelines to Help Prevent Kidney Stones Kidney stones are deposits of minerals and salts that form inside your kidneys. Your risk of developing kidney stones may be greater depending on your diet, your lifestyle, the medicines you take, and whether you have certain medical conditions. Most people can lower their chances of developing kidney stones by following the instructions below. Your dietitian may give you more specific instructions depending on your overall health and the type of kidney stones you tend to develop. What are tips for following this plan? Reading food labels ? Choose foods with no salt added or low-salt labels. Limit your salt (sodium) intake to less than 1,500 mg a day. ? Choose foods with calcium for each meal and snack. Try to eat about 300 mg of calcium at each meal. Foods that contain 200?500 mg of calcium a serving include: ? 8 oz (237 mL) of milk, psvxekq-zngdoabugvvs-b airy milk, and calcium-fortifiedfruit juice. Calcium-fortified means that calcium has been added to these drinks. ? 8 oz (237 mL) of kefir, yogurt, and soy yogurt. ? 4 oz (114 g) of tofu. ? 1 oz (28 g) of cheese. ? 1 cup (150 g) of dried figs. ? 1 cup (91 g) of cooked broccoli. ? One 3 oz (85 g) can of sardines or mackerel. Most people need 1,000?1,500 mg of calcium a day. Talk to your dietitian about how much calcium is recommended for you. Shopping ? Buy plenty of fresh fruits and vegetables. Most people do not need to avoid fruits and vegetables, even if these foods contain nutrients that may contribute to kidney stones. ? When shopping for convenience foods, choose: ? Whole pieces of fruit. ? Pre-made salads with dressing on the side. ? Low-fat fruit and yogurt smoothies. ? Avoid buying frozen meals or prepared deli foods. These can be high in sodium. ? Look for foods with live cultures, such as yogurt and kefir. ? Choose high-fiber grains, such as whole-wheat breads, oat bran, and wheat cereals. Cooking ? Do not add salt to food when cooking. Place a salt shaker on the table and allow each person to add his or her own salt to taste. ? Use vegetable protein, such as beans, textured vegetable protein (TVP), or tofu, instead of meat in pasta, casseroles, and soups. Meal planning ? Eat less salt, if told by your dietitian. To do this: ? Avoid eating processed or pre-made food. ? Avoid eating fast food. ? Eat less animal protein, including cheese, meat, poultry, or fish, if told by your dietitian. To do this: ? Limit the number of times you have meat, poultry, fish, or cheese each week. Eat a diet free of meat at least 2 days a week. ? Eat only one serving each day of meat, poultry, fish, or seafood. ? When you prepare animal protein, cut pieces into small portion sizes. For most meat and fish, one serving is about the size of the palm of your hand. ? Eat at least five servings of fresh fruits and vegetables each day. To do this: ? Keep fruits and vegetables on hand for snacks. ? Eat one piece of fruit or a handful of berries with breakfast. ? Have a salad and fruit at lunch. ? Have two kinds of vegetables at dinner. ? Limit foods that are high in a substance called oxalate. These include: ? Spinach (cooked), rhubarb, beets, sweet potatoes, and Prydeinig chard. ? Peanuts. ? Potato chips, costa rican fries, and baked potatoes with skin on. ? Nuts and nut products. ? Chocolate. ? If you regularly take a diuretic medicine, make sure to eat at least 1 or 2 servings of fruits or vegetables that are high in potassium each day. These include: ? Avocado. ? Banana. ? [place], prune, carrot, or tomato juice. ? Baked potato. ? Cabbage. ? Beans and split peas. Lifestyle ? Drink enough fluid to keep your urine pale yellow. This is the most important thing you can do. Spread your fluid intake throughout the day. ? If you drink alcohol: ? Limit how much you use to: ? 0?1 drink a day for women who are not . ? 0?2 drinks a day for men. ? Be aware of how much alcohol is in your drink. In the [place] one drink equals one 12 oz bottle of beer (355 mL), one 5 oz glass of wine (148 mL), or one 1? oz glass of hard liquor (44 mL). ? Lose weight if told by your health care provider. Work with your dietitian to find an eating plan and weight loss strategies that work best for you. General information ? Talk to your health care provider and dietitian about taking daily supplements. You may be told the following depending on your health and the cause of your kidney stones: ? Not to take supplements with vitamin C. ? To take a calcium supplement. ? To take a daily probiotic supplement. ? To take other supplements such as magnesium, fish oil, or vitamin B6. ? Take ojsi-qfj-ugevfsz and prescription medicines only as told by your health care provider. These include supplements. What foods should I limit? Limit your in (more content not included)... Normal [facility] RAD - CT Reporton 07-09-2022 RAD - CT Report [id number] 0CD:127 Normal [facility] CT ABD/PELVIS WO CONon 07-06 CT ABD/PELVIS WO CON EXAMINATION: CT ABD/PELVIS WO CON, 07/06/2022 12:03 PM EDT HISTORY: Disorder of kidney and/or ureter COMPARISON: 03/12/2022 TECHNIQUE: CT scan of the abdomen and pelvis was performed without IV contrast. CT dose reduction technique was used, including Automated Exposure Control. FINDINGS: LUNG BASES: No visible pulmonary or pleural disease. LIVER: No enlargement, atrophy, abnormal density, or significant focal lesion. BILIARY: No dilatation or calcification. PANCREAS: No lesion, fluid collection, ductal dilatation, or atrophy. SPLEEN: No enlargement or focal lesion. ADRENALS: No mass or enlargement. KIDNEYS: Multiple stable cortical hypodensities the largest measuring 2.8 cm right cortical hypodensity. Bilateral nonobstructing nephrolithiasis. No hydronephrosis BOWEL/MESENTERY: No visible mass, obstruction, or bowel wall thickening. Normal appendix. Central line along the stomach AORTA/VASCULAR: No aneurysm or dissection. RETROPERITONEUM: No mass or adenopathy. LYMPH NODES: No adenopathy. URINARY BLADDER: No visible focal wall thickening, lesion, or calculus. PELVIC ORGANS: No visible mass. Pelvic organs appropriate for patient age. ABDOMINAL WALL: No mass or hernia. BONES: Posterior decompression and bilateral transpedicular fusion L4-S1. Moderate degenerative spondylosis. OTHER: Negative. IMPRESSION: Stable renal hypodensities. Cysts are suspected Electronically authenticated by: OBIE TSE Date: 2022-07-06 13:19 Normal [facility] Pre-Certification Formon Pre-Certification Form [id number] 0CD:127 Normal [facility] Orders Onlyon 06-25-2022 Orders Only [id number] SimentalSukhdeep Darrel 1965 M Date Provider Department Center 06/25/2022 BLAISE ANGELA MP ORTHO MPORTHO Family History Problem Relation Age of Onset Dementia Mother Esophageal cancer Father Alcohol abuse Father Family Status - Relation Status Age at Mother Alive Father Normal [facility] Follow-Upon 06-22-2022 Follow-Up [id number] SimentalSukhdeep 1965 M Date Provider Department Center 06/22/2022 PAYTON GRIFFITH MP ORTHO MPORTHO Family History Problem Relation Age of Onset Dementia Mother Esophageal cancer Father Alcohol abuse Father Family Status - Relation Status Age at Mother Alive Father Level of Service:15020 [place] POSTOP FOLLOW UP VISIT RELATED TO ORIGINAL PX Reason for Visit and Comments: Follow-up [817588] Normal [facility] Office Visiton 06-22-2022 Follow-up visit [id number] Sukhdeep Simental 1965 M Date Provider Department Center 06/22/2022 JASON ALVES MP ORTHO MPORTHO Family History Problem Relation Age of Onset Dementia Mother Esophageal cancer Father Alcohol abuse Father Family Status - Relation Status Age at Mother Alive Father Level of Service:31999 [place] OFFICE/OUTPATIENT ESTABLISHED MOD MDM 30-39 MIN (57) Reason for Visit and Comments: Follow-up [767908] Normal [facility] PTH INTACTon 06-12-2022 PTH, Intact 38 pg/mL Normal 15-65 [facility] Comment on above: Performed By: #### P T #### [facility] [address] [place] [address] Dr. Hugh Landis FERRITINon 06-11-2022 Ferritin [Mass/Vol] 96.0 ng/mL Normal 26.0-388.0 [facility] Comment on above: Performed By: #### P T #### [facility] [address] [address] [address] Hugh Landis HEMOGRAM AND PLATELon 2022 Hematocrit (Bld) [Volume fraction] 39.1 % Critically low 42.0-54.0 [facility] Comment on above: Performed By: #### H H #### [facility] [address] [address] [address] Hugh Landis Hemoglobin (Bld) [Mass/Vol] 13.3 g/dL Critically low 14.0-18.0 [facility] Comment on above: Performed By: #### H H #### [facility] [address] [address] [address] Hugh Landis MCH (RBC) [Entitic mass] 30.5 pg Normal 25.9-34.0 [facility] Comment on above: Performed By: #### H H #### [facility] [address] [address] [address] Hugh Landis MCHC (RBC) [Mass/Vol] 34.0 g/dL Normal 29.9-35.2 [facility] Comment on above: Performed By: #### H H #### [facility] [address] [address] [address] Hugh Landis MCV (RBC) [Entitic vol] 89.7 fL Normal 80.0-94.0 [facility] Comment on above: Performed By: #### H H #### [facility] [address] [place] [address] Dr. Hugh Landis PLT 230 103/ul Normal 150-450 [facility] Comment on above: Performed By: #### H H #### [facility] [address] [place] [address] Dr. Hugh Landis RBC 4.36 106/ul Critically low 4.70-6.10 [facility] Comment on above: Performed By: #### H H #### [facility] [address] [place] [address] Dr. Hugh Landis WBC 4.8 103/ul Normal 4.0-11.0 [facility] Comment on above: Performed By: #### H H #### [facility] [address] [place] [address] Dr. Hugh Landis IRON AND TIBCon 06-11-2022 % SATURATION 55.0 % Normal [facility] Comment on above: Performed By: #### P T #### [facility] [address] [place] [address] Dr. Hugh Landis Iron [Mass/Vol] 137.0 ug/dL Normal 65.0-175.0 [facility] Comment on above: Performed By: #### P T #### [facility] [address] [place] [address] Dr. Hugh Landis TIBC DIRECT 249.0 ug/dL Critically low 250.0-450.0 [facility] Comment on above: Performed By: #### P T #### [facility] [address] [address] [address] Hugh Landis MAGNESIUMon 06-11-2022 Magnesium [Mass/Vol] 1.9 mg/dL Normal 1.8-2.4 [facility] Comment on above: Performed By: #### P TT #### [facility] [address] [place] [address] Dr. Hugh Landis RENAL FUNCTION PANELon 06-11 Albumin [Mass/Vol] 3.5 g/dL Normal 3.4-5.0 [facility] Comment on above: Performed By: #### P TT #### [facility] [address] [place] [address] Dr. Hugh Landis Calcium [Mass/Vol] 9.5 mg/dL Normal 8.5-10.1 [facility] Comment on above: Performed By: #### P TT #### [facility] [address] [place] [address] Dr. Hugh Landis Chloride [Moles/Vol] 107 mmol/L Normal 98-107 [facility] Comment on above: Performed By: #### P TT #### [facility] [address] [place] [address] Dr. Hugh Landis CO2 [Moles/Vol] 30.9 mmol/L Normal 21.0-32.[address] [facility] Comment on above: Performed By: #### P TT #### [facility] [address] [place] [address] Dr. Hugh Landis Creatinine [Mass/Vol] 1.41 mg/dL Critically high 0.70-1.30 [facility] Comment on above: Performed By: #### P TT #### [facility] [address] [place] [address] Dr. Hugh Landis EGFR-AF GUAMANIAN >60 Normal >=[address] [facility] Comment on above: Performed By: #### P TT #### [facility] [address] [place] [address] Dr. Hugh Landis EGFR-NON AF GUAMANIAN 52 mL/min/1.73m2 Critically low >=60 [facility] Comment on above: Performed By: #### P TT #### [facility] [address] [address] [address] Hugh Landis Glucose [Mass/Vol] 118 mg/dL Critically high 74-106 [facility] Comment on above: Performed By: #### P TT #### [facility] [address] [address] [address] Hugh Landis Phosphate [Mass/Vol] 3.0 mg/dL Normal 2.6-4.7 [facility] Comment on above: Performed By: #### P TT #### [facility] [address] [address] [address] Hugh Landis Potassium [Moles/Vol] 3.9 mmol/L Normal 3.5-5.1 [facility] Comment on above: Performed By: #### P TT #### [facility] [address] [address] [address] Hugh Landis Sodium [Moles/Vol] 143 mmol/L Normal 136-145 [facility] Comment on above: Performed By: #### P TT #### [facility] [address] [address] [address] Hugh Landis Urea nitrogen [Mass/Vol] 19.0 mg/dL Critically high 7.0-18.0 [facility] Comment on above: Performed By: #### P TT #### [facility] [address] [address] [address] Hugh Landis UA RANDOM W/MICROSCOPICon BACTERIA NONE SEEN Normal NONE SEEN [facility] Comment on above: Performed By: #### P T #### [facility] [address] [address] [address] Hugh Landis Bilirubin Ql (U) Negative Normal NEGATIVE [facility] Comment on above: Performed By: #### P T #### [facility] [address] [address] [address] Hugh Landis CAST NONE SEEN Normal NONE SEEN [facility] Comment on above: Performed By: #### P T #### [facility] [address] [place] [address] Dr. Hugh Landis Clarity (U) CLEAR Normal CLEAR [facility] Comment on above: Performed By: #### P T #### [facility] [address] [place] [address] Dr. Hugh Landis Color (U) YELLOW Normal YELLOW [facility] Comment on above: Performed By: #### P T #### [facility] [address] [place] [address] Dr. Hugh Landis Crystals LM Nom (Urine sed) NONE SEEN Normal NONE SEEN [facility] Comment on above: Performed By: #### P T #### [facility] [address] [place] [address] Dr. Hugh Landis Epithelial cells LM Ql (Urine sed) FEW Abnormal NONE SEEN /RARE [facility] Comment on above: Performed By: #### P T #### [facility] [address] [place] [address] Dr. Hugh Landis Glucose Ql (U) Negative Normal NEGATIVE [facility] Comment on above: Performed By: #### P T #### [facility] [address] [place] [address] Dr. Hugh Landis Hemoglobin Ql (U) Negative Normal NEGATIVE [facility] Comment on above: Performed By: #### P T #### [facility] [address] [place] [address] Dr. Hugh Landis Ketones Ql (U) TRACE Abnormal NEGATIVE [facility] Comment on above: Performed By: #### P T #### [facility] [address] [place] [address] Dr. Hugh Landis LEUKOCYTES Negative Normal NEGATIVE [facility] Comment on above: Performed By: #### P T #### [facility] [address] [place] [address] Dr. Hugh Landis MUCOUS MODERATE Abnormal NONE SEEN [facility] Comment on above: Performed By: #### P T #### [facility] [address] [place] [address] Dr. Hugh Landis Nitrite Ql (U) Negative Normal NEGATIVE [facility] Comment on above: Performed By: #### P T #### [facility] [address] [place] [address] Dr. Hugh Landis pH (U) 5.0 [pH] Normal 5-9 [facility] Comment on above: Performed By: #### P T #### [facility] [address] [place] [address] Dr. Hugh Landis RBC NONE SEEN Abnormal 0-2 [facility] Comment on above: Performed By: #### P T #### [facility] [address] [place] [address] Dr. Hugh Landis SPEC GRAVITY 1.025 Normal 1.005-<=1.025 [facility] Comment on above: Performed By: #### P T #### [facility] [address] [place] [address] Dr. Hugh Landis UA PROTEIN TRACE Normal NEGATIVE/ TRACE [facility] Comment on above: Performed By: #### P T #### [facility] [address] [place] [address] Dr. Hugh Landis Urobilinogen Qn (U) 0.2 {Dahiana'U}/dL Normal 0.2 - 1. 0 [facility] Comment on above: Performed By: #### P T #### [facility] [address] [place] [address] Dr. Hugh Landis WBC NONE SEEN Normal NONE SEEN [facility] Comment on above: Performed By: #### P T #### [facility] [address] [place] [address] Dr. Hugh Landis URIC ACID SERUMon 06-11-2022 Urate [Mass/Vol] 7.5 mg/dL Critically high 3.5-7.2 [facility] Comment on above: Performed By: #### P TT #### [facility] [address] [place] [address] Dr. Hugh Landis VITAMIN D 25 OHon 06-11-2022 VIT D 25-OH 35.0 ng/mL Normal [facility] Comment on above: Performed By: #### P T #### [facility] [address] [place] [address] Dr. Hugh Landis VIT D RANGES SEE BELOW Normal [facility] Comment on above: Result Comment: <20 ng/mL Vit D deficient 20 - <30 ng/mL Vit D insufficient 30 - 100 ng/mL Vit D sufficient >100 ng/mL Potential Toxicity Performed By: #### P T #### [facility] [address] [address] [address] Hugh Landis Follow-Upon 04-18-2022 Follow-Up [id number] Sukhdeep Simental 1965 M Date Provider Department Center 04/18/2022 JASON ALVES MP ORTHO MPORTHO Family History Problem Relation Age of Onset Dementia Mother Esophageal cancer Father Alcohol abuse Father Family Status - Relation Status Age at Mother Alive Father Level of Service:03753 [place] OFFICE/OUTPATIENT ESTABLISHED LOW MDM 20-29 MIN (GC) Reason for Visit and Comments: Follow-up [048048] [facility] Office Visiton 04-13-2022 Follow-up visit [id number] Sukhdeep Simental 1965 M Date Provider Department Center 04/13/2022 PAYTON GRIFFITH MP Family History Problem Relation Age of Onset Dementia Mother Esophageal cancer Father Alcohol abuse Father Family Status - Relation Status Age at Mother Alive Father Level of Service:77668 [place] POST[place] FOLLOW UP VISIT RELATED TO ORIGINAL PX (GC) Reason for Visit and Comments: Post-op [483] Pain [136] [facility] 36on 04-04-2022 36 came in receive d copy of FMLA give by senior underwriter on 04/03/2022. Normal [facility] Letter (Out)on 04-04-2022 Letter (Out) [id number] Sukhdeep Simental 1965 M Date Provider Department Center 04/04/2022 PAYTON GRIFFITH MP Family History Problem Relation Age of Onset Dementia Mother Esophageal cancer Father Alcohol abuse Father Family Status - Relation Status Age at Mother Alive Father [facility] 36on 04-02-2022 36 Patient came in to the office requesting for a copy of patient FMLA paperwork, she states the employer stated that they did not receive the fax. Normal [facility] 36on 03-30-2022 36 I called and spoke t o the patient for a discharge follow up call following his joint replacement surgery. The patient is doing well at home but complains that his pain is not well controlled. He is requesting a stronger pain medication. Dr. Helm notified and a new script was written and sent to the patient's pharamacy. The patient has outpatient therapy appointments set up. He denies any issues with his surgical dressing. He is taking lovenox daily and doxycycline BID. I confirmed with the patient that he has a follow up on April 13 at 3:00pm [facility] Orders Onlyon 03-30-2022 Orders Only [id number] Sukhdeep Simental Darrel 1965 M Date Provider Department Center 03/30/2022 PAYTON GRIFFITH MP ORTHO MPORTHO Family History Problem Relation Age of Onset Dementia Mother Esophageal cancer Father Alcohol abuse Father Family Status - Relation Status Age at Mother Alive Father [facility] 30on 03-29-2022 30 The patient is Moderately Stable - Low risk of patient condition declining or worsening The patient's goals for the shift include comfort The clinical goals for the shift include comfort Over the shift, the patient did not make progress toward the following goals. Barriers to progression include post op pain. Recommendations to address these barriers include , meds as prescribed. Normal [facility] BASIC METABOLIC PANELon 02-0 Anion gap [Moles/Vol] 8 mmol/L Normal 7-20 [facility] Comment on above: Performed By: #### L AB15 ####[facility] [place] [address] Calcium [Mass/Vol] 8.5 mg/dL Low 8.6-10.3 [facility] Comment on above: Performed By: #### L AB15 ####[facility] [place] [address] Chloride [Moles/Vol] 106 mmol/L Normal 98-107 [facility] Comment on above: Performed By: #### L AB15 ####[facility] [place] [address] CO2 [Moles/Vol] 25 mmol/L Normal 21-31 [facility] Comment on above: Performed By: #### L AB15 ####[facility] ([facility] [place] [address] Creatinine [Mass/Vol] 1.41 mg/dL High 0.70-1.30 [facility] Comment on above: Performed By: #### L AB15 ####[facility] ([facility])[address] [place] [address] GLOMERULAR FILTRATION RATE ML/MIN/1.73 SQ M.PREDICTED 54.5 mL/min/1.73m*2 Low >60.0 [facility] Comment on above: Result Comment: [facility]???s estimated glomerular filtration rate (eGFR) will no longer include consideration of race in its calculation. The National Kidney Foundation???s eGFR Task Force developed new recommendations for the estimation of the glomerular filtration rate in the [place] They recommend immediate implementation of the new equation refit without the race variable in all laboratories because the calculation does not include race. In addition to not including race in the calculation and reporting, it included diversity in its development, and has acceptable performance characteristics and potential consequences that do not disproportionately affect any one group of individuals. Performed By: #### L AB15 ####[facility] ([facility])[address] [place] [address] Glucose [Mass/Vol] 187 mg/dL High 70-100 [facility] Comment on above: Performed By: #### L AB15 ####[facility] ([facility])[address] [place] [address] Potassium [Moles/Vol] 4.3 mmol/L Normal 3.5-5.1 [facility] Comment on above: Performed By: #### L AB15 ####[facility] ([facility])[address] [place] [address] Sodium [Moles/Vol] 139 mmol/L Normal 136-145 [facility] Comment on above: Performed By: #### L AB15 ####[facility] [place] [address] Urea nitrogen [Mass/Vol] 28 mg/dL High 7-25 [facility] Comment on above: Performed By: #### L AB15 ####[facility] ([facility])[address] [place] [address] UREA NITROGEN/CREATININE (MASS RATIO) IN SER/PLAS 19.86 Normal [facility] Comment on above: Performed By: #### L [id number] ####[facility] ([facility] [place] [address] C-REACTIVE PROTEINon 023 C REACTIVE PROTEIN (MG/L) IN SER/PLAS 10.3 mg/L High 0.0-7.0 [facility] Comment on above: Performed By: #### L [id number] ####[facility] ([facility])[address] [place] [address] CBCon 03-29-2022 Erythrocyte distribution width (RBC) [Ratio] 13.3 % Normal 11.5-15.0 [facility] Comment on above: Performed By: #### L [id number] ####[facility] ([facility] [place] [address] ERYTHROCYTE MEAN CORPUSCULAR HEMOGLOBIN CONCENTRATION (G/DL) BY AUTOMATED 34.2 g/dL Normal 32.0-35.0 [facility] Comment on above: Performed By: #### L [id number] ####[facility] ([facility])[address] [place] [address] Hematocrit (Bld) [Volume fraction] 34.8 % Low 39.0-55.0 [facility] Comment on above: Performed By: #### L [id number] ####[facility] ([facility])[address] [place] [address] Hemoglobin (Bld) [Mass/Vol] 11.9 g/dL Low 13.0-17.0 [facility] Comment on above: Performed By: #### L [id number] ####[facility] ([facility])[address] [place] [address] MCH (RBC) [Entitic mass] 30.8 pg Normal 27.0-33.0 [facility] Comment on above: Performed By: #### L [id number] ####[facility] ([facility])[address] [place] [address] MCV (RBC) [Entitic vol] 90.2 fL Normal 82.0-98.0 [facility] Comment on above: Performed By: #### L [id number] ####[facility] ([facility])[address] [place] [address] PLATELETS (10*3/UL) IN BLOOD AUTOMATED COUNT 178 10*3/uL Normal 150-400 [facility] Comment on above: Performed By: #### L [id number] ####[facility] ([facility])[address] [place] [address] RBC (Bld) [#/Vol] 3.86 10*6/uL Low 4.20-5.[address] [facility] Comment on above: Performed By: #### L [id number] ####[facility] ([facility])[address] [place] [address] WBC (Bld) [#/Vol] 10.22 10*3/uL Normal 4.00-10.60 [facility] Comment on above: Performed By: #### L [id number] ####[facility] ([facility])[address] [place] [address] DSon 03-29-2022 DS Admission Admitted 03/28/2022 for History of removal of joint prosthesis right knee joint antibiotic empirically and stage II revision knee arthroplasty. Patient has done well following this surgery and was admitted for pain control and other consults required as well as infectious disease consult. 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 Discharge Disposition Home or Self Care Discharge Medications Your medication list START taking these medications Instructions Last Dose Given Next Dose Due docusate sodium 100 mg capsule Commonly known as: Colace Take 1 capsule (100 mg) by mouth in the morning and at bedtime for 15 days. doxycycline 100 mg capsule Commonly known as: Vibramycin Take 1 capsule (100 mg) by mouth in the morning and at bedtime. Take with at least 8 ounces (large glass) of water, do not lie down for 30 minutes after enoxaparin 40 mg/0.4 mL syringe Commonly known as: Lovenox Inject 0.4 mL (40 mg) under the skin in the morning. CHANGE how you take these medications Instructions Last Dose Given Next Dose Due HYDROcodone-acetaminop hen 5-325 mg tablet Commonly known as: [place] What changed: Another medication with the same name was added. Make sure you understand how and when to take each. HYDROcodone-acetaminop hen 5-325 mg tablet Commonly known as: [place] What changed: You were already taking a medication with the same name, and this prescription was added. Make sure you understand how and when to take each. Take 1 tablet by mouth every 6 (six) hours if needed for severe pain (8-10 pain score) for up to 7 days. CONTINUE taking these medications Instructions Last Dose Given Next Dose Due bumetanide 1 mg tablet Commonly known as: Bumex doxazosin 4 mg tablet Commonly known as: Cardura famotidine 20 mg tablet Commonly known as: Pepcid ferrous sulfate 325 (65 Fe) MG tablet irbesartan 300 mg tablet Commonly known as: Avapro LORazepam 1 mg tablet Commonly known as: Ativan metoclopramide 10 mg tablet Commonly known as: Reglan omeprazole [address] capsule Commonly known as: PriLOSEC pantoprazole 40 mg EC tablet Commonly known as: ProtoNix pioglitazone 15 mg tablet Commonly known as: Actos simvastatin 10 mg tablet Commonly known as: Zocor sucralfate 1 gram tablet Commonly known as: Carafate tamsulosin 0.4 mg 24 hr capsule Commonly known as: Flomax testosterone cypionate 100 mg/mL injection Commonly known as: Depo-Testosterone testosterone cypionate 200 mg/mL injection Commonly known as: Depo-Testosterone traZODone 50 mg tablet Commonly known as: Desyrel ZANAFLEX ORAL STOP taking these medications apixaban 2.5 mg tablet Commonly known as: Eliquis oxyCODONE 5 mg immediate release tablet Commonly known as: Roxicodone Where to Get Your Medications These medications were sent to [facility] - [place], [place] - [address] [place] [address] doxycycline 100 mg capsule HYDROcodone-acetaminop hen 5-325 mg tablet These medications were sent to [facility] - [place], [place] - [address], [facility] [address] docusate sodium 100 mg capsule enoxaparin 40 mg/0.4 mL syringe Activity Patient currently has no discharge activity orders Diet Patient currently has no discharge diet orders Allergies Iodine and Loratadine Hospital Course Patient was admitted following his right stage II cemented total stabilized CCK revision knee arthroplasty with Biomet implants. Patient was allowed to weightbearing as tolerated . Patient was admitted for pain control reasons. He also had physical therapy and Occupational Therapy consults on the floor as well as infectious disease consult. Patient will be using a walker to ambulate around and milligrams precautions due to his lumbosacral radiculopathy, and weakness in his quads and hamstrings. Patient will be having a PICC line and IV antibiotics as well. Pertinent Physical Exam At Time of Discharge Physical Exam Patient had right knee examined his incision is healed, no signs of infection dressing in situ, no evidence of any major spotting noted. Patient has full active extension of his right knee joint along with flexion to about 30 to 40 degrees. Minor hematoma seen. No redness noted. No signs of deep vein thrombosis. Ankle and toe range of motion were well-maintained. No new neurological deficits seen. Lab Results Labs Reviewed BODY FLUID CULTURE - Abnormal Result Value Culture No growth at 2 days Gram Stain Result Polymorphonuclear leukocytes (*) Gram Stain Result No organisms seen (*) Gram Stain Result Cytocentrifuge sample (*) POCT GLUCOSE METER UNSOLICITED RESULTS - Abnormal Glucose POC 185 (*) POC (more content not included)... Normal [facility] POCT GLUCOSE METER UNSOLICIT ED RESULTSon 03-29-2022 Glucose [Mass/Vol] 186 mg/dL High 70-105 [facility] Comment on above: Result Comment: jeas tri2 Performed By: #### L [id number] ####[facility] ([facility])[address] [facility] [place] [address] Glucose [Mass/Vol] 170 mg/dL High 70-105 [facility] Comment on above: Result Comment: jay berry Performed By: #### L [id number] #### [facility] ([facility]) [address] [place] [address] SEDIMENTATION RATEon 023 SEDIMENTATION RATE, ERYTHROCYTE 30 mm/hr High <=10 [facility] Comment on above: Performed By: #### L [id number] ####[facility] ([facility])[address] [facility] [address] 29on 03-28-2022 29 Addendum created 03/28/22 1525 by Dereck Rosales MD Order list changed, Pharmacy for encounter modified Normal [facility] Anesthesiaon 03-28-2022 Anesthesia [id number] Sukhdeep Simental 1965 M Date Provider Department Center 03/28/2022 UMBERTO MACIAS [facility] OR SD Medical C Family History Problem Relation Age of Onset Dementia Mother Esophageal cancer Father Alcohol abuse Father Family Status - Relation Status Age at Mother Alive Father Normal [facility] BODY FLUID CULTUREon 023 Bacteria identified Cx Nom (Unsp spec) No growth at 5 days Normal [facility] Comment on above: Order Comment: Pre-o p diagnosis: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 [Z86.19, Z98.890] Performed By: #### L [id number] #### [facility] ([facility]) [address] [place] [address] GRAM STAIN RESULT Abnormal [facility] Comment on above: Order Comment: Pre-o p diagnosis: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 [Z86.19, Z98.890] Result Comment: Poly morphonuclear leukocytes No organisms seen Cytocentrifuge sample Performed By: #### L [id number] #### [facility] ([facility]) [address] [place] [address] HISTOLOGY - TISSUE EXAMon LAB AP CASE REPORT Normal [facility] Comment on above: Order Comment: Pre-o p diagnosis: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 [Z86.19, Z98.890] Result Comment: Surg ical Pathology Case: [id number] Authorizing Provider: Payton Helm MD Collected: 03/28/2022 1215 Ordering Location: [facility] Main Operating Room Received: 03/28/2022 1229 Pathologist: Estella Albert MD Intraop: Sherly Campos MD Specimens: A) - Knee, Right Knee, Posterior Capsule B) - Femur, Right Femur C) - Tibia, Right Tibia D) - Patella, Right Patella Performed By: #### L [id number] ####[facility] ([facility])[address] [place] [address] LAB AP CLINICAL INFORMATION Normal [facility] Comment on above: Order Comment: Pre-o p diagnosis: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 Knee. 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 It consists of 3 bundy-pink pieces of bone and soft tissue measuring 1.9 x 1.0 x 0.6 cm in aggregate. The soft tissue is entirely submitted for frozen analysis. The specimen is submitted entirely as follows: A1: remainder of frozen section A2: remainder of bone (decal) Yash Vela, Pathologists' Paper Baler Student Guille Sahni, Pathologists' Paper Baler B. Femur. Part B is received fresh for frozen section labeled Sukhdeep Simental and right femur. It consists of 4 bundy-pink pieces of bone and soft tissue measuring 4.4 x 3.1 x 1.2 cm in aggregate. The soft tissue is entirely submitted for frozen analysis. Firebreak Cutter sections of the specimen are submitted as follows: B1: Remainder of frozen section B2-B4: apprenticeship representative of bone (decal) Yash Vela, Pathologists' Paper Baler Student Guille Sahni, Pathologists' Paper Baler C. Tibia. Part C is received fresh for frozen section in a container labeled Sukhdeep Simental and right tibia. It consists of 2 pieces of bundy-pink pieces of soft tissue and bone measuring 2.6 x 2.5 x 0.4 cm in aggregate. The soft tissue is entirely submitted for frozen analysis. The specimen is submitted entirely as follows: C1: Remainder of frozen section C2-C3: Remainder of bone (decal) Lamine Melo, Pathologists' Paper Baler Student Guille Sahni, Pathologists' Paper Baler D. Patella. Part D is received fresh for frozen section in a container labeled Sukhdeep Simental and right patella. It consists of 7 pieces of bundy-pink soft tissue and bone measuring 2.4 x 1.9 x 1.1 cm in aggregate. The soft tissue is entirely submitted for frozen analysis. The specimen is submitted entirely as follows: D1: Remainder frozen section D2-D3: Remainder of bone (decal) Lamine Melo, Pathologists' Paper Baler Student Guille Sahni Pathologists' Paper Baler Performed By: #### L [id number] ####[facility] ([facility])[address] [place] [address] LAB AP INTRAOPERATIVE CONSULTATION A. Knee. 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 Soft tissue and fibrin 0 neutrophils/HPF 1 frozen block. Called to OR at 1:00 pm. B. Femur. Collected 03/28/22 12:15 PM by Payton Helm MD. Soft tissue with foci of chronic inflammation and fragments of bone. 0-2 neutrophils/HPF 1 frozen block Called to OR at 1:00 pm C. Tibia. Collected 03/28/22 12:16 PM by Payton Helm MD. Soft tissue with foci of chronic inflammation and fragments of bone. 0-1 neutrophils/HPF 1 frozen block Called to OR at 1:00 pm D. Patella. Collected 03/28/22 12:17 PM by Payton Helm MD. Soft tissue with foci of chronic inflammation and fragments of bone. 0-1 neutrophils/HPF 1 frozen block Called to OR at 1:00 pm Performed By: #### L [id number] ####[facility] ([facility])[address] [place] [address] LAB AP MICROSCOPIC DESCRIPTION Microscopic examination performed. 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 R ight knee, posterior capsule, biopsy: - Benign fibrovascular tissue and minute fragment of bone. Focal foreign body giant cell reaction. - 0-1 neutrophil/high power field. B. Right femur, biopsy: - Benign fibrovascular tissue and fragments of bone. Focal foreign body giant cell reaction. - 0-2 neutrophils/high power field. C. Right tibia, biopsy: - Benign fibrovascular tissue and fragments of bone. - 0-1 neutrophil/high power field. D. Right patella, biopsy: - Benign fibrovascular tissue and fragments of bone. Focal foreign body giant cell reaction. - 0-1 neutrophil/high power field. Final Diagnosis was reviewed during inter-department consult. Performed By: #### L [id number] ####[facility] ([facility])[address] [place] [address] HPon 03-28-2022 H&P reviewed. The patient was examined and there are no changes to the H&P. Normal [facility] History Of Present Illness Sukhdeep Simental is a 56 y.o. male presenting with Chief complaint: Follow-up status post stage I revision right TKA 02/23/22 Sukhdeep Simental is a 56 y.o. year old male presenting for preop visit and above-mentioned reason. DOS: 12/27/2021. Patient has completed IV antibiotics under the guidance of the infectious disease team and is eager to pursue a stage II revision today. Patient denies any incisional issues with the right knee. Denies any constitutional symptoms concerning for infection including fever/night sweats/chills/malaise/ fatigue. Patient denies any new numbness/tingling/weak ness to the right lower extremity that is different than his baseline. Patient has had multiple revisions to the right knee up to this point. He is unhealthy at baseline and he does understand that we will attempt one more revision to his right knee before we have to proceed with either a amputation or fusion. Past Medical History He has a past medical history of Allergic rhinitis, Anemia, Anxiety, BPH (benign prostatic hyperplasia), CKD (chronic kidney disease), Diabetes (CMS/[facility]), GERD (gastroesophageal reflux disease), Hyperlipidemia, Hyperparathyroidism ([facility]), Hypertension, Kidney stones, Lumbar pain, OA (osteoarthritis), Obesity, Obstetric pulmonary blood clot embolism, antepartum, and Sleep apnea. Surgical History He has a past surgical history that includes Stomach surgery (N/A); Kidney stone surgery; Lumbar fusion; Joint replacement (Bilateral); and Ankle surgery (Left). Social History He reports that he has never smoked. He has never used smokeless tobacco. He reports that he does not drink alcohol and does not use drugs. Family History Family History Problem Relation Name Age of Onset Dementia Mother Esophageal cancer Father Alcohol abuse Father Allergies Iodine and Loratadine Medications Medications Prior to Admission Medication Sig Dispense Refill Last Dose bumetanide (Bumex) 1 mg tablet Take 1 tablet by mouth in the morning. 03/27/2022 doxazosin (Cardura) 4 mg tablet Take 4 mg by mouth in the morning. 03/28/2022 at 0600 ferrous sulfate 325 (65 Fe) MG tablet Take 1 tablet by mouth in the morning and 1 tablet in the evening. 03/27/2022 irbesartan (Avapro) 300 mg tablet Take 1 tablet by mouth in the morning. 03/27/2022 metoclopramide (Reglan) 10 mg tablet Take 10 mg by mouth if needed. Past Week omeprazole (PriLOSEC) [address] capsule Take 20 mg by mouth in the morning and at bedtime. 03/28/2022 pioglitazone (Actos) 15 mg tablet Take 30 mg by mouth in the morning. 03/27/2022 simvastatin (Zocor) 10 mg tablet Take 10 mg by mouth at bedtime. 03/27/2022 sucralfate (Carafate) 1 gram tablet Take 1 g by mouth in the morning, at noon, in the evening, and at bedtime. 03/27/2022 tamsulosin (Flomax) 0.4 mg 24 hr capsule Take 0.4 mg by mouth in the morning. 03/28/2022 tizanidine HCl (ZANAFLEX ORAL) Take 4 mg by mouth at bedtime. 03/27/2022 traZODone (Desyrel) 50 mg tablet Take 50 mg by mouth at bedtime. 03/27/2022 apixaban (Eliquis) 2.5 mg tablet Take 1 tablet (2.5 mg) by mouth in the morning and at bedtime. Take this medication as prescribed to prevent a blood clot. 60 tablet 0 famotidine (Pepcid) 20 mg tablet in the morning. Not Taking HYDROcodone-acetaminop hen ([place]) 5-325 mg tablet 1 tablet if needed each day for severe pain (8-10 pain score). More than a month LORazepam (Ativan) 1 mg tablet Take 1 mg by mouth every 6 (six) hours if needed for anxiety. More than a month oxyCODONE (Roxicodone) 5 mg immediate release tablet Take 5 mg by mouth every 4 (four) hours if needed for severe pain (8-10 pain score). Not Taking pantoprazole (ProtoNix) 40 mg EC tablet Take 40 mg by mouth before breakfast. Not Taking testosterone cypionate (Depo-Testosterone) 100 mg/mL injection testosterone cypionate 100 mg/mL intramuscular oil INJECT 1.5 ML INTO THE MUSCLE EVERY 2 WEEKS DIRECTED Not Taking testosterone cypionate (Depo-Testosterone) 200 mg/mL injection testosterone cypionate 200 mg/mL intramuscular oil administer 3/4 mL INTRAMUSCULARLY EVERY 2 (TWO) weeks More than a month Review of Systems Last Recorded Vitals Patient Vitals for the past 24 hrs: BP Temp Temp src Pulse Resp SpO2 Height Weight 03/28/22 1000 139/78 36.2 ???C (97.2 ???F) Temporal 64 18 98 % 1.753 m (5' 9 ) 122 kg (270 lb) Physical Exam Relevant Lab Results Lab Results Component Value Date NA 141 01/02/2022 K 4.4 01/02/2022 CL 107 01/02/2022 CO2 30 01/02/2022 BUN 12 01/02/2022 CREATININE 1.23 01/02/2022 GLUCOSE 102 (H) 01/02/2022 CALCIUM 8.9 01/02/2022 ANIONGAP 4 (L) 01/02/2022 EGFR 64.3 01/02/2022 BCR 9.76 01/02/2022 Objective General: Body mass index is 38.69 kg/m???. General: No acute distress, comfortable Respiratory: Unlabored breathing with normal rate, no cough Cardiovascular: Warm and well perfused extremities Psych: Appropriate mood and behavior. A (more content not included)... [facility] MRSA/MSSA DNA NASALon 2022 MRSA DNA Negative Normal Negative, Invalid [facility] Comment on above: Performed By: #### L [id number] ####[facility] ([facility])[address] [place] [address] MSSA DNA Negative Normal Negative, Invalid [facility] Comment on above: Performed By: #### L [id number] ####[facility] ([facility])[address] [place] [address] NURSNOTEon 03-28-2022 NURSNOTE at [facility] to review x-rays and speak with pt. All questions answered. [facility] NURSNOTE Belongings at [facility], post op x-ray completed. 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 #2 augmentation and repair of the extensor mechanism of the patellar tendon back to the tibial tuberosity #3 debridement washout removal of antibiotic spacer and reconstruction of bone loss using augmented total knee arthroplasty using Biomet persona implants. #4 superficial and deep complex primary closure for right knee arthrotomy. Surgeons * Payton Helm - Primary Assistants: #1 Donn Horner MD resident orthopedic surgery #2 Mahad Stubbs landscape painter #3 Cj York medical student year 3 procedure Summary Anesthesia: General ASA: III Estimated Blood Loss: 150 mL Total IV Fluids: Please see anesthesia chart mL Tourniquet time: 88 minutes. Drains: Urethral Catheter 16 Fr. (Active) Specimens ID Source Type Tests Collected By Collected At Frozen? Priority Lab ID 1 Knee Synovial Fluid BODY FLUID CULTURE AND ANAEROBIC CULTURE Payton Helm MD 03/28/22 1214 [id number], [id number] Description: Right Knee A Knee Tissue HISTOLOGY - TISSUE EXAM Payton Helm MD 03/28/22 1215 Yes [id number] Description: Right Knee, Posterior Capsule B Femur Tissue HISTOLOGY - TISSUE EXAM Payton Helm MD 03/28/22 1215 Yes [id number] Description: Right Femur C Tibia Tissue HISTOLOGY - TISSUE EXAM Payton Helm MD 03/28/22 1216 Yes [id number] Description: Right Tibia D Patella Tissue HISTOLOGY - TISSUE EXAM Payton Helm MD 03/28/22 1217 Yes [id number] Description: Right Patella Implants Type Name Action Serial No. Bone Cement CEMENT,BONE,R,[id number] - [id number] Implanted Persona Revision Tibial Augment Cemented Implanted Persona Revision Tibia Fixed Cemented Implanted Persona Revision Stem Extension Implanted Persona Revision Femoral Distal Augment Cemented Implanted Persona Revision Stem Extension Implanted Persona Revision Femoral Distal Augment Cemented Implanted Persona Revision Femur Cemented Implanted Persona Revision Tibial Augment Cemented Implanted Persona Revision Vivacit-E Highly Crosslinked Polyethylene Articular Surface Implanted Staff: Staff Air Tactical Officer: Corrie Quijano RN Relief Staff Air Tactical Officer: Ashley Bhatti RN Scrub Person: Karina Gordon, CARLA; Lilia Garcia CST Satellite Communications Operator: Jef Stubbs CSA [employer] Staff Air Tactical Officer: Sonya Noriega Indications: Sukhdeep Simental is an 56 y.o. 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 Patient is a 56-year-old male who underwent right stage I revision knee arthroplasty for infected right knee arthroplasty along with severe instability the right knee joint secondary to weakness in his quadriceps and lumbosacral region about the distended cavity. Patient noted to have severe pain control issues along with previous lumbosacral degenerative disc disease that required fusion. Patient has been under pain management as well. Patient has failed nonsurgical treatment and has had stage I revision. He has completed a course of antibiotics and is now indicated for stage II revision meatoplasty. He denies any fever, chills or rigors breathlessness. X-rays of his right knee joint show right knee antibiotic impregnated spacer. No complications noted. Patient does have very thin patella along with loss of extensor mechanism with weakness of his right extensor mechanism. Patient has a higher than normal risk for recurrent instability and falls as well as previous hip fractures. Patient will need to lose weight to have optimal outcome as well as to have strict blood sugar control to have improvement in his future outcome of his right knee revision arthroplasty. Patient has had previous revisions and he understands that if he fails this revision he may end up needing right above-knee amputation. Patient has signed his consent form patient and the family agree with the treatment plan. Procedure Details: The patient was seen in the preoperative area. The risks, benefits, complications, treatment options, non-operative alternatives, expected recovery and outcomes were discussed with the patient. The possibilities of reaction to medication, pulmonary aspiration, injury to surrounding structures, bleeding, recurrent infection, the need for additional procedures, failure to diagnose (more content not included)... Normal [facility] POCT GLUCOSE METER UNSOLICIT ED RESULTSon 03-28-2022 Glucose [Mass/Vol] 236 mg/dL High 70-105 [facility] Comment on above: Result Comment: elac umsky Performed By: #### L [id number] ####[facility] ([facility])[address] [place] [address] Glucose [Mass/Vol] 185 mg/dL High 70-105 [facility] Comment on above: Result Comment: asor ia3 Performed By: #### L [id number] ####[facility] ([facility])[address] [place] [address] Glucose [Mass/Vol] 102 mg/dL Normal 70-105 [facility] Comment on above: Result Comment: [facility] Performed By: #### L [id number] ####[facility] ([facility])[address] [place] [address] POCT SARS-COV-2 PCRon 2022 POC SARS-COV-2 ANTIGEN Negative Normal Negative [facility] Comment on above: Result Comment: ID N OW COVID-19 assay performed on the [employer] NOW Instrument is a rapid molecular in vitro diagnostic test utilizing an isothermal nucleic acid amplification technology intended for the qualitative detection of nucleic acid from the SARS-CoV-2 virus in direct anterior nasal(nasal), nasopharyngeal or throat swabs from individuals who are suspected of COVID-19 by their healthcare provider within the first seven days of the onset of symptoms.Testing is limited to laboratories certified under the Clinical Laboratory Improvement Amendments of 1988 (CLIA), 42 U.S.C. ???263a,that meet the requirements to perform high, moderate, or waived complexity tests. The ID NOW COVID-19 assay is also authorized for use at the Point of Care (POC), i.e., in patient care settings operating under a CLIA Certificate of Waiver, Certificate of Compliance, or Certificate of Accreditation. Performed By: #### L [id number] ####[facility] ([facility])[address] [place] [address] TYPE AND SCREENon 03-28-2022 AB SCREEN Negative Normal [facility] Comment on above: Performed By: #### L [id number] ####[facility], ABO group Nom (Bld) A Normal [facility] Comment on above: Performed By: #### L [id number] ####[facility], RH TYPE IN BLOOD Negative Normal [facility] Comment on above: Performed By: #### L [id number] ####[facility], 36on 03-24-2022 36 Spoke with pateint's regarding FMLA forms, she stated she will have the forms faxed again. I spoke with Sukhdeep as well and let him know that he might have to reach out to customer services regarding anything with billing for his brace. Normal [facility] Orders Onlyon 03-23-2022 Orders Only [id number] Sukhdeep Simental 1965 M Date Provider Department Center 03/23/[address] [facility] Medical C Family History Problem Relation Age of Onset Dementia Mother Esophageal cancer Father Alcohol abuse Father Family Status - Relation Status Age at Mother Alive Father Normal [facility] Ambulatory Visit Summaryon 0 03-19-2022 Ambulatory Visit Summary SUKHDEEP SIMENTAL Darrel :1965 Visit Date:03/19/2022 Ambulatory Visit Instructions Your Diagnosis Renal mass Kidney stone Your Care Team Attending Physician - Cecelia MURILLO MD Primary Care Physician - Derick Isabel MD This Is Your Medications List Contact prescribing physician if questions or concerns bumetanide (bumetanide 1 mg Tab) doxazosin (doxazosin 4 mg Tab) ferrous sulfate (FeroSul 325 mg oral tablet) irbesartan (Avapro 300 mg Tab) lorazepam (Ativan 1 mg Tab) metoclopramide (metoclopramide 10 mg Tab) multivitamin with minerals (Multivitamin, Therapeutic w/ Minerals) omeprazole (omeprazole 20 mg Cap-DR) oxycodone (oxyCODONE 5 mg Tab) pioglitazone (pioglitazone 30 mg Tab) simvastatin sucralfate (sucralfate 1 g Tab) tamsulosin (tamsulosin 0.4 mg Cap) testosterone (Testosterone Cypionate 200 mg/mL intramuscular solution) tizanidine (Zanaflex 4 mg Tab) trazodone (traZODONE 50 mg Tab) Procedures Performed Cystoscopic removal of ureteric stent (07/13/2021), ESWL of kidney (07/13/2021), Cystoscopic insertion of ureteric stent (06/29/2021), Procedure on stomach (04/2021), Cystoscopy (03/28/2020), ESWL (extracorporeal shockwave lithotripsy) of ureteric calculus (02/24/2020), cysto rt retrograde rt ureteroscopy rt holmium laser lithotripsy rt j stent with string (05/25/2016), Ankle joint operations, Bilateral replacement of knee joints, Cystoscopy, Lumbar spinal fusion. Discharge Vitals Heart Rate (Peripheral) 78 Respiratory Rate 16 Blood Pressure 139/88 Height 175 cm Height 69 in Weight 140 kg Weight 308 lb BMI 45.71 What to do next Scheduled Follow-Up Appointments Saturday. 2022 2:45 PM EDT With: Cecelia MURILLO MD Where: [facility] Patient Educationon 03-19-19 Patient Education Urology Dietary Guidelines to Help Prevent Kidney Stones Kidney stones are deposits of minerals and salts that form inside your kidneys. Your risk of developing kidney stones may be greater depending on your diet, your lifestyle, the medicines you take, and whether you have certain medical conditions. Most people can reduce their chances of developing kidney stones by following the instructions below. Depending on your overall health and the type of kidney stones you tend to develop, your dietitian may give you more specific instructions. What are tips for following this plan? Reading food labels ? Choose foods with no salt added or low-salt labels. Limit your sodium intake to less than 1500 mg per day. ? Choose foods with calcium for each meal and snack. Try to eat about 300 mg of calcium at each meal. Foods that contain 200?500 mg of calcium per serving include: ? 8 oz (237 ml) of milk, fortified nondairy milk, and fortified fruit juice. ? 8 oz (237 ml) of kefir, yogurt, and soy yogurt. ? 4 oz (118 ml) of tofu. ? 1 oz of cheese. ? 1 cup (300 g) of dried figs. ? 1 cup (91 g) of cooked broccoli. ? 1?3 oz can of sardines or mackerel. ? Most people need 1000 to 1500 mg of calcium each day. Talk to your dietitian about how much calcium is recommended for you. Shopping ? Buy plenty of fresh fruits and vegetables. Most people do not need to avoid fruits and vegetables, even if they contain nutrients that may contribute to kidney stones. ? When shopping for convenience foods, choose: ? Whole pieces of fruit. ? Premade salads with dressing on the side. ? Low-fat fruit and yogurt smoothies. ? Avoid buying frozen meals or prepared deli foods. ? Look for foods with live cultures, such as yogurt and kefir. Cooking ? Do not add salt to food when cooking. Place a salt shaker on the table and allow each person to add his or her own salt to taste. ? Use vegetable protein, such as beans, textured vegetable protein (TVP), or tofu instead of meat in pasta, casseroles, and soups. Meal planning ? Eat less salt, if told by your dietitian. To do this: ? Avoid eating processed or premade food. ? Avoid eating fast food. ? Eat less animal protein, including cheese, meat, poultry, or fish, if told by your dietitian. To do this: ? Limit the number of times you have meat, poultry, fish, or cheese each week. Eat a diet free of meat at least 2 days a week. ? Eat only one serving each day of meat, poultry, fish, or seafood. ? When you prepare animal protein, cut pieces into small portion sizes. For most meat and fish, one serving is about the size of one deck of cards. ? Eat at least 5 servings of fresh fruits and vegetables each day. To do this: ? Keep fruits and vegetables on hand for snacks. ? Eat 1 piece of fruit or a handful of berries with breakfast. ? Have a salad and fruit at lunch. ? Have two kinds of vegetables at dinner. ? Limit foods that are high in a substance called oxalate. These include: ? Spinach. ? Rhubarb. ? Beets. ? Potato chips and costa rican fries. ? Nuts. ? If you regularly take a diuretic medicine, make sure to eat at least 1?2 fruits or vegetables high in potassium each day. These include: ? Avocado. ? Banana. ? [place], prune, carrot, or tomato juice. ? Baked potato. ? Cabbage. ? Beans and split peas. General instructions ? Drink enough fluid to keep your urine clear or pale yellow. This is the most important thing you can do. ? Talk to your health care provider and dietitian about taking daily supplements. Depending on your health and the cause of your kidney stones, you may be advised: ? Not to take supplements with vitamin C. ? To take a calcium supplement. ? To take a daily probiotic supplement. ? To take other supplements such as magnesium, fish oil, or vitamin B6. ? Take all medicines and supplements as told by your health care provider. ? Limit alcohol intake to no more than 1 drink a day for non women and 2 drinks a day for men. One drink equals 12 oz of beer, 5 oz of wine, or 1? oz of hard liquor. ? Lose weight if told by your health care provider. Work with your dietitian to find strategies and an eating plan that works best for you. What foods are not recommended? Limit your intake of the following foods, or as told by your dietitian. Talk to your dietitian about specific foods you should avoid based on the type of kidney stones and your overall health. Grains Breads. Bagels. Rolls. Baked goods. Salted crackers. Cereal. Pasta. Vegetables Spinach. Rhubarb. Beets. Canned vegetables. Pickles. Olives. Meats and other protein foods Nuts. Nut butters. Large portions of meat, poultry, or fish. Salted or cured meats. Deli meats. Hot dogs. Sausages. Dairy Cheese. Beverages Regular soft drinks. Regular vegetable juice. Seasonings and other foods Seasoning blends with salt. Faby baldwin (more content not included)... Normal [facility] Urology Office/Clinic Noteon 03-19-2022 Urology Office/Clinic Note Chief Complaint f/u to CT HPI Staff Pt is here for f/u to CT for renal mass. Previous dx of kidney stone and gross hematuria. CT done 1/16/23 shows 4 right renal hypodensities, the largest 3cm, bilateral renal nonobstructive stones measuring up to 8mm and stable mild bilateral adrenal nodularities. Dysuria: no Incomplete bladder emptying: no Hematuria: no Frequency: no Urgency: no Nocturia: does not get up Stream: good Leaking: no Post void dripping: no Wearing pads/ Depends: no Urge incontinence: no Stress incontinence: no Incontinence without Sensory Awareness: no Abdominal pain: no Flank pain: no Sexual complaints: no History of Present Illness Tests reviewed: reviewed UA, CT scan, KUB, SÁNCHEZ. I have reviewed the previous health record information and history for this patient from Dr. Murillo. I have reviewed and verified the staff HPI to be accurate for this encounter. There have been no associated fever, chills, flank pain, or blood in the urine. Denies any urinary infections since last encounter. Review of Systems PHQ Score Initial Depression Screen Score: 0 ROS - Provider Constitutional: denies weight loss, denies hot flashes. Eyes: denies eye problems. Gastrointestinal: denies nausea, denies vomiting. Cardiovascular: denies chest pain or angina. Integumentary: no dryness Musculoskeletal: denies musculoskeletal symptoms. ENMT: denies otolaryngeal symptoms. Respiratory: no shortness of breath. Heme/Lymph: denies easy bleeding tendency, denies easy bruising tendency. Psychiatric: no confusion, no anxiety. Genitourinary: See HPI. Physical Exam Vitals & Measurements HR: 78(Peripheral) RR: 16 BP: 139/88 HT: 69 in HT: 175 cm WT: 140 kg WT: 308 lb BMI: 45.71 General Appearance: alert, no distress, well nourished, well developed male. Genitourinary: normal scrotum, normal testes, normal urethra, normal epididymis, normal vas deferens/spermatic cord. Flank Pain: none. Bladder: nonpalpable. Assessment/Plan No sample provided for UA today. Pt is wheelchair bound at this time. 1. Renal mass (N28.89: Other specified disorders of kidney and ureter) Pt is here for f/u to CT for renal mass. Seen in consult on 06/29/21 at [facility]. 11/14/21: BUN 19.0. Crea 1.62. eGFR 44. CT AP wo con done 03/12/22 shows 4 right renal hypodensities, the largest 3 cm, bilateral renal nonobstructive stones measuring up to 8 mm and stable mild bilateral adrenal nodularities. Explained pt does have significant stone burden on the right but also has 3 growths on the right kidney. Discussed repeat CT with con, pt unable to have con due to kidney function. Reports kidney function was as low as 18%, cannot have IV con. Findings could represent simple cysts. Discussed MRI but pt has metal in his back, unable to have MRI. Could have repeat CT wo con imaging done in 4 mos to monitor for changes. Discussed bx if masses grow, does not seem warranted at this time. Follow up in [address] AP wo con. All questions/concerns were discussed. Pt to call the office if heencounters any issues prior. Pt acknowledges understanding and agrees with plan. 2. Kidney stone (N20.0: Calculus of kidney) -S/p L ESWL/L stent removal/L ureteroscopy/holmium laser litho of large left ureteral calculus/stone basket extraction done 07/13/[address] Murillo. -SÁNCHEZ done 12/21/21 shows 1.7 x 1.3 x 1.1 cm hypervascular hypoechoic cortical medullary mass. Multiple echogenic foci in the right kidney, the largest measuring up to 1 (no measurement given) nonobstructing nephrolithiasis. 3 cm cortical cyst. Echogenic foci in the left kidney measuring up to 4 mm, nonobstructing nephrolithiasis. -X-ray Ab done 12/21/21 shows no suspicious abdominal findings. Evaluation is slightly limited by patient body evidence. -CT AP wo con done 03/12/22 shows bilateral renal nonobstructive stones measuring up to 8 mm and stable mild bilateral adrenal nodularities. Explained pt does have significant stone burden on the right. Stones secondary concern to renal mass and his R knee crisis at this time. Follow-up With When Contact Information LIDIA JACOBS, Cecelia Jj, URL [facility] [address], [place] [address]- Additional Instructions: f/u [address] AP wo con Patient Education Dietary Guidelines to Help Prevent Kidney Stones I, Catherine Tan, personally scribed for Dr. Murillo on 03/19/2022 10:47:10. . Documentation recorded by the scribe, Catherine Tan, accurately reflects the services(s) I performed and decisions made by me. Authenticated by Dr. Murillo on 03/19/2022 10:53:32. Problem List/Past Medical History Ongoing Gross hematuria Kidney stone Morbid obesity with body mass index (BMI) of 45.0 to 49.9 in adult Renal mass Retained ureteral stent Historical No qualifying data Procedure/Surgical History Cystoscopic removal of ureteric stent (07/13/2021), ESWL of k (more content not included)... Normal [facility] Comment on above: Result Comment: Elec tronically Signed By: Cecelia MURILLO MD R\\.br\\Date and Time Signed: 03/19/22 10:53 EST\\.br\\Electronically Co-Signed By: Catherine Tan\\.br\\Date and Time Co-Signed: 03/19/22 10:47 EST PROTIMEon 03-15-2022 INR Coag (PPP) [Relative time] 1.11 {INR} Normal [facility] Comment on above: Performed By: #### P T #### [facility] [address] [address] [address] Hugh Landis INR GUIDELINES SEE BELOW Normal [facility] Comment on above: Result Comment: VIC RED INR: 2.0 - 3.0 CONDITIONS NOT LISTED BELOW 2.5 - 3.5 FOR PROSTHETIC HEART VALVE REPLACEMENT 2.5 - 3.5 RECURRENT THROMBOSIS Performed By: #### P T #### [facility] [address] [address] [address] Hugh Landis PT Coag (PPP) [Time] 11.7 s Critically high 9.0-11.6 [facility] Comment on above: Performed By: #### P T #### [facility] [address] [address] [address] Hugh Landis RAD - CT Reporton 03-15-2022 RAD - CT Report [id number]:[id number] Normal [facility] UA (CLEAN/CATCH) RN OBGYN/MICRO I F IND.on 03-15-2022 Bilirubin Ql (U) Negative Normal NEGATIVE [facility] Comment on above: Performed By: #### P TT #### [facility] [address] [place] [address] Dr. Hugh Landis Clarity (U) CLEAR Normal CLEAR [facility] Comment on above: Performed By: #### P TT #### [facility] [address] [place] [address] Dr. Hugh Landis Color (U) YELLOW Normal YELLOW [facility] Comment on above: Performed By: #### P TT #### [facility] [address] [place] [address] Dr. Hugh Landis Glucose Ql (U) Negative Normal NEGATIVE [facility] Comment on above: Performed By: #### P TT #### [facility] [address] [place] [address] Dr. Hugh Landis Hemoglobin Ql (U) SMALL Abnormal NEGATIVE [facility] Comment on above: Performed By: #### P TT #### [facility] [address] [place] [address] Dr. Hugh Landis Ketones Ql (U) Negative Normal NEGATIVE [facility] Comment on above: Performed By: #### P TT #### [facility] [address] [place] [address] Dr. Hugh Landis LEUKOCYTES Negative Normal NEGATIVE [facility] Comment on above: Performed By: #### P TT #### [facility] [address] [place] [address] Dr. Hugh Landis Nitrite Ql (U) Negative Normal NEGATIVE [facility] Comment on above: Performed By: #### P TT #### [facility] [address] [place] [address] Dr. Hugh Landis pH (U) 5.5 [pH] Normal 5-9 [facility] Comment on above: Performed By: #### P TT #### [facility] [address] [place] [address] Dr. Hugh Landis SPEC GRAVITY 1.025 Normal 1.005-<=1.025 [facility] Comment on above: Performed By: #### P TT #### [facility] [address] [place] [address] Dr. Hugh Landis UA PROTEIN Negative Normal NEGATIVE/ TRACE [facility] Comment on above: Performed By: #### P TT #### [facility] [address] [place] [address] Dr. Hugh Landis UR MICRO IND INDICATED Normal [facility] Comment on above: Performed By: #### P TT #### [facility] [address] [place] [address] Dr. Hugh Landis Urobilinogen Qn (U) 0.2 {Dahiana'U}/dL Normal 0.2 - 1. 0 [facility] Comment on above: Performed By: #### P TT #### [facility] [address] [place] [address] Dr. Hugh Landis URINE MICROSCOPIC ONLYon BACTERIA TRACE Abnormal NONE SEEN [facility] Comment on above: Performed By: #### P TT #### [facility] [address] [place] [address] Dr. Hugh Landis Bacteria identified Cx Nom (U) NOT INDICATED Normal [facility] Comment on above: Performed By: #### P TT #### [facility] [address] [place] [address] Dr. Hugh Landis CAST NONE SEEN Normal NONE SEEN [facility] Comment on above: Performed By: #### P TT #### [facility] [address] [place] [address] Dr. Hugh Landis Crystals LM Nom (Urine sed) NONE SEEN Normal NONE SEEN [facility] Comment on above: Performed By: #### P TT #### [facility] [address] [place] [address] Dr. Hugh Landis Epithelial cells LM Ql (Urine sed) RARE Normal NONE SEEN /RARE [facility] Comment on above: Performed By: #### P TT #### [facility] [address] [place] [address] Dr. Hugh Landis MUCOUS NONE SEEN Normal NONE SEEN [facility] Comment on above: Performed By: #### P TT #### [facility] [address] [place], [place] [address] Dr. Hugh Landis RBC 0-2 Normal 0-2 [facility] Comment on above: Performed By: #### P TT #### [facility] [address] [id number] Hugh Landis WBC 0-2 Abnormal NONE SEEN [facility] Comment on above: Performed By: #### P TT #### [facility] [id number] Hugh Landis [id number] 03-13-2022 [id number] NPO after [place] Must have a cement mixer driver to take you home and someone to stay for 24 hours after surgery. No jewelry. Hold the meds we spoke about: NSAIDS Take the meds we spoke about w/a sip of water DOS: PRILOSEC CARDURA TAMSULOSIN AND OXY AND ATIVAN PRN Bring insurance card and ID. [facility] 36on 03-13-2022 36 I called and spoke t o the patient for discharge planning prior to his joint replacement surgery. The patient would like to discharge to home following his release from the hospital. He has one step to get into his house, and once he is inside everything remains on one floor. He will have support at home. He has a walker, shower chair, and raised toilet seat. As long as Dr Helm clears him to do physical therapy, he would like [facility]. Normal [facility] Orders Onlyon 03-13-2022 Orders Only [id number] Sukhdeep Simental 1965 M Date Provider Department Center 03/13/2022 ROYER MICHAUD [facility] Family History Problem Relation Age of Onset Dementia Mother Esophageal cancer Father Alcohol abuse Father Family Status - Relation Status Age at Mother Alive Father [facility] Telephoneon 03-13-2022 Telephone [id number] Sukhdeep Simental F 1965 M Date Provider Department Center 03/13/2022 BLADIMIR ROSE [facility] Family History Problem Relation Age of Onset Dementia Mother Esophageal cancer Father Alcohol abuse Father Family Status - Relation Status Age at Mother Alive Father [facility] MRSA NARES #1on 03-08-2022 MRSA NARES #1 Culture Observations : NO GROWTH OF MRSA AT 48 HOURS. Normal [facility] Comment on above: Performed By: #### B MP #### [facility] [address] [place] [address] Dr. Hugh Landis PROF CHEM 8 (BAS METB)on Anion gap [Moles/Vol] 9.9 mmol/L Normal [facility] Comment on above: Performed By: #### C MP, LIPID, TSH #### [facility] [address] [place] [address] Dr. Hugh Landis Calcium [Mass/Vol] 9.4 mg/dL Normal 8.5-10.1 [facility] Comment on above: Performed By: #### C MP, LIPID, TSH #### [facility] [address] [place] [address] Dr. Hugh Landis Chloride [Moles/Vol] 103 mmol/L Normal 98-107 [facility] Comment on above: Performed By: #### C MP, LIPID, TSH #### [facility] [address] [place] [address] Dr. Hugh Landis CO2 [Moles/Vol] 31.6 mmol/L Normal 21.0-32.[address] [facility] Comment on above: Performed By: #### C MP, LIPID, TSH #### [facility] [address] [place] [address] Dr. Hugh Landis Creatinine [Mass/Vol] 1.25 mg/dL Normal 0.70-1.30 [facility] Comment on above: Performed By: #### C MP, LIPID, TSH #### [facility] [address] [place] [address] Dr. Hugh Landis EGFR-AF GUAMANIAN >60 Normal >=[address] [facility] Comment on above: Performed By: #### C MP, LIPID, TSH #### [facility] [address] [place] [address] Dr. Hugh Landis EGFR-NON AF GUAMANIAN 59 mL/min/1.73m2 Critically low >=60 [facility] Comment on above: Performed By: #### C MP, LIPID, TSH #### [facility] [address] [address] [address] Hugh Landis Glucose [Mass/Vol] 110 mg/dL Critically high 74-106 [facility] Comment on above: Performed By: #### C MP, LIPID, TSH #### [facility] [address] [place] [address] Dr. Hugh Landis Potassium [Moles/Vol] 3.5 mmol/L Normal 3.5-5.1 [facility] Comment on above: Performed By: #### C MP, LIPID, TSH #### [facility] [address] [place] [address] Dr. Hugh Landis Sodium [Moles/Vol] 141 mmol/L Normal 136-145 [facility] Comment on above: Performed By: #### C MP, LIPID, TSH #### [facility] [address] [place] [address] Dr. Hugh Landis Urea nitrogen [Mass/Vol] 27.0 mg/dL Critically high 7.0-18.0 [facility] Comment on above: Performed By: #### C MP, LIPID, TSH #### [facility] [address] [place] [address] Dr. Hugh Landis Urea nitrogen/Creatinine [Mass ratio] 21.6 mg/mg Normal [facility] Comment on above: Performed By: #### C MP, LIPID, TSH #### [facility] [address] [place] [address] Dr. Hugh Landis PTTon 03-08-2022 aPTT Coag (Bld) [Time] 27.0 s Normal 22.3-36.2 [facility] Comment on above: Performed By: #### P TT #### [facility] [address] [place] [address] Dr. Hugh Landis Letter (Out)on 03-07-2022 Letter (Out) [id number] Sukhdeep Simental 1965 M Date Provider Department Center 03/07/2022 None-None [facility] Medical C Family History Problem Relation Age of Onset Dementia Mother Esophageal cancer Father Alcohol abuse Father Family Status - Relation Status Age at Mother Alive Father Normal [facility] 29on 02-23-2022 29 Addended by: JACOB MCKEE on: 03/07/2022 11:52 AM Modules accepted: Leslie Barajas Normal [facility] C-REACTIVE PROTEINon 022 C REACTIVE PROTEIN (MG/L) IN SER/PLAS 24.6 mg/L High 0.0-7.0 [facility] Comment on above: Performed By: #### L [id number] #### [facility] ([facility]) [address] [place] [address] CBC WITH AUTO DIFFERENTIALon 02-23-2022 Basophils (Bld) [#/Vol] 0.02 10*3/uL Normal 0.00-0.20 [facility] Comment on above: Performed By: #### L [id number] ####[facility] ([facility])[address] [place] [address] Basophils/100 WBC (Bld) 0.4 % Normal 0.0-1.0 [facility] Comment on above: Performed By: #### L [id number] ####[facility] (BEAKER)[address] [place] [address] Eosinophils (Bld) [#/Vol] 0.16 10*3/uL Normal 0.00-0.50 [facility] Comment on above: Performed By: #### L [id number] ####[facility] (BEAKER)[address] [place] [address] Eosinophils/100 WBC (Bld) 2.8 % Normal 0.0-6.0 [facility] Comment on above: Performed By: #### L [id number] ####[facility] (BEAKER)[address] [place] [address] Erythrocyte distribution width (RBC) [Ratio] 12.6 % Normal 11.5-15.0 [facility] Comment on above: Performed By: #### L [id number] ####[facility] (BEAKER)[address] [place] [address] ERYTHROCYTE MEAN CORPUSCULAR HEMOGLOBIN CONCENTRATION (G/DL) BY AUTOMATED 32.1 g/dL Normal 32.0-35.0 [facility] Comment on above: Performed By: #### L [id number] ####[facility] (BEAKER)[address] [place] [address] Hematocrit (Bld) [Volume fraction] 40.5 % Normal 39.0-55.0 [facility] Comment on above: Performed By: #### L [id number] ####[facility] (BEAKER)[address] [place] [address] Hemoglobin (Bld) [Mass/Vol] 13.0 g/dL Normal 13.0-17.0 [facility] Comment on above: Performed By: #### L [id number] ####[facility] (BEAKER)[address] [place] [address] Immature granulocytes (Bld) [#/Vol] 0.01 10*3/uL Normal 0.00-0.20 [facility] Comment on above: Performed By: #### L [id number] ####[facility] (BEAKER)[address] [place] [address] Immature granulocytes/100 WBC (Bld) 0.2 % Normal 0.0-1.0 [facility] Comment on above: Performed By: #### L [id number] ####[facility] (BEAKER)[address] [place] [address] Lymphocytes (Bld) [#/Vol] 1.05 10*3/uL Low 1.20-4.00 [facility] Comment on above: Performed By: #### L [id number] ####[facility] (BEAKER)[address] [place] [address] Lymphocytes/100 WBC (Bld) 18.4 % Low 20.0-45.0 [facility] Comment on above: Performed By: #### L [id number] ####[facility] (BEAKER)[address] [place] [address] MCH (RBC) [Entitic mass] 29.3 pg Normal 27.0-33.0 [facility] Comment on above: Performed By: #### L [id number] ####[facility] ([facility] [place] [address] MCV (RBC) [Entitic vol] 91.2 fL Normal 82.0-98.0 [facility] Comment on above: Performed By: #### L [id number] ####[facility] ([facility] [place] [address] Monocytes (Bld) [#/Vol] 0.82 10*3/uL Normal 0.10-1.00 [facility] Comment on above: Performed By: #### L [id number] ####[facility] ([facility])[address] [place] [address] Monocytes/100 WBC (Bld) 14.4 % High 5.0-12.0 [facility] Comment on above: Performed By: #### L [id number] ####[facility] ([facility])[address] [place] [address] Neutrophils (Bld) [#/Vol] 3.65 10*3/uL Normal 1.60-7.60 [facility] Comment on above: Performed By: #### L [id number] ####[facility] ([facility])[address] [place] [address] Neutrophils/100 WBC (Bld) 63.8 % Normal 40.0-72.0 [facility] Comment on above: Performed By: #### L [id number] ####[facility] ([facility])[address] [place] [address] NRBC (PER 100 WBCS) BY AUTOMATED COUNT 0.0 % Normal 0.0-0.0 [facility] Comment on above: Performed By: #### L [id number] ####[facility] (BEAKER)[address] [place] [address] PLATELETS (10*3/UL) IN BLOOD AUTOMATED COUNT 210 10*3/uL Normal 150-400 [facility] Comment on above: Performed By: #### L [id number] ####[facility] ([facility])[address] [place] [address] RBC (Bld) [#/Vol] 4.44 10*6/uL Normal 4.20-5.[address] [facility] Comment on above: Performed By: #### L [id number] ####[facility] ([facility])[address] [place] [address] WBC (Bld) [#/Vol] 5.71 10*3/uL Normal 4.00-10.[address] [facility] Comment on above: Performed By: #### L [id number] ####[facility] ([facility])[address] [place] [address] Follow-Upon 02-23-2022 Follow-Up [id number] Sukhdeep Simental 1965 M Date Provider Department Center 02/23/2022 [facility] ORTHO MPORTHO Family History Problem Relation Age of Onset Dementia Mother Esophageal cancer Father Alcohol abuse Father Family Status - Relation Status Age at Mother Alive Father Level of Service:36228 [place] OFFICE/OUTPATIENT ESTABLISHED MOD MDM 30-39 MIN () Reason for Visit and Comments: Pain [136] Normal [facility] Labon 02-23-2022 Lab [id number] Sukhdeep Simental 1965 M Date Provider Department Center 02/23/2022 2244-[facility] MP LAB RESOURCE MP DRAW Medical Pavi Family History Problem Relation Age of Onset Dementia Mother Esophageal cancer Father Alcohol abuse Father Family Status - Relation Status Age at Mother Alive Father Normal [facility] SEDIMENTATION RATEon 022 SEDIMENTATION RATE, ERYTHROCYTE 39 mm/hr High <=10 [facility] Comment on above: Performed By: #### L [id number] ####[facility] ([facility])[address] [place] [address] Patient Educationon 02-13-20 22 Patient Education Urology Dietary Guidelines to Help Prevent Kidney Stones Kidney stones are deposits of minerals and salts that form inside your kidneys. Your risk of developing kidney stones may be greater depending on your diet, your lifestyle, the medicines you take, and whether you have certain medical conditions. Most people can reduce their chances of developing kidney stones by following the instructions below. Depending on your overall health and the type of kidney stones you tend to develop, your dietitian may give you more specific instructions. What are tips for following this plan? Reading food labels ? Choose foods with no salt added or low-salt labels. Limit your sodium intake to less than 1500 mg per day. ? Choose foods with calcium for each meal and snack. Try to eat about 300 mg of calcium at each meal. Foods that contain 200?500 mg of calcium per serving include: ? 8 oz (237 ml) of milk, fortified nondairy milk, and fortified fruit juice. ? 8 oz (237 ml) of kefir, yogurt, and soy yogurt. ? 4 oz (118 ml) of tofu. ? 1 oz of cheese. ? 1 cup (300 g) of dried figs. ? 1 cup (91 g) of cooked broccoli. ? 1?3 oz can of sardines or mackerel. ? Most people need 1000 to 1500 mg of calcium each day. Talk to your dietitian about how much calcium is recommended for you. Shopping ? Buy plenty of fresh fruits and vegetables. Most people do not need to avoid fruits and vegetables, even if they contain nutrients that may contribute to kidney stones. ? When shopping for convenience foods, choose: ? Whole pieces of fruit. ? Premade salads with dressing on the side. ? Low-fat fruit and yogurt smoothies. ? Avoid buying frozen meals or prepared deli foods. ? Look for foods with live cultures, such as yogurt and kefir. Cooking ? Do not add salt to food when cooking. Place a salt shaker on the table and allow each person to add his or her own salt to taste. ? Use vegetable protein, such as beans, textured vegetable protein (TVP), or tofu instead of meat in pasta, casseroles, and soups. Meal planning ? Eat less salt, if told by your dietitian. To do this: ? Avoid eating processed or premade food. ? Avoid eating fast food. ? Eat less animal protein, including cheese, meat, poultry, or fish, if told by your dietitian. To do this: ? Limit the number of times you have meat, poultry, fish, or cheese each week. Eat a diet free of meat at least 2 days a week. ? Eat only one serving each day of meat, poultry, fish, or seafood. ? When you prepare animal protein, cut pieces into small portion sizes. For most meat and fish, one serving is about the size of one deck of cards. ? Eat at least 5 servings of fresh fruits and vegetables each day. To do this: ? Keep fruits and vegetables on hand for snacks. ? Eat 1 piece of fruit or a handful of berries with breakfast. ? Have a salad and fruit at lunch. ? Have two kinds of vegetables at dinner. ? Limit foods that are high in a substance called oxalate. These include: ? Spinach. ? Rhubarb. ? Beets. ? Potato chips and [place] fries. ? Nuts. ? If you regularly take a diuretic medicine, make sure to eat at least 1?2 fruits or vegetables high in potassium each day. These include: ? Avocado. ? Banana. ? [place], prune, carrot, or tomato juice. ? Baked potato. ? Cabbage. ? Beans and split peas. General instructions ? Drink enough fluid to keep your urine clear or pale yellow. This is the most important thing you can do. ? Talk to your health care provider and dietitian about taking daily supplements. Depending on your health and the cause of your kidney stones, you may be advised: ? Not to take supplements with vitamin C. ? To take a calcium supplement. ? To take a daily probiotic supplement. ? To take other supplements such as magnesium, fish oil, or vitamin B6. ? Take all medicines and supplements as told by your health care provider. ? Limit alcohol intake to no more than 1 drink a day for non women and 2 drinks a day for men. One drink equals 12 oz of beer, 5 oz of wine, or 1? oz of hard liquor. ? Lose weight if told by your health care provider. Work with your dietitian to find strategies and an eating plan that works best for you. What foods are not recommended? Limit your intake of the following foods, or as told by your dietitian. Talk to your dietitian about specific foods you should avoid based on the type of kidney stones and your overall health. Grains Breads. Bagels. Rolls. Baked goods. Salted crackers. Cereal. Pasta. Vegetables Spinach. Rhubarb. Beets. Canned vegetables. Pickles. Olives. Meats and other protein foods Nuts. Nut butters. Large portions of meat, poultry, or fish. Salted or cured meats. Deli meats. Hot dogs. Sausages. Dairy Cheese. Beverages Regular soft drinks. Regular vegetable juice. Seasonings and other foods Seasoning blends with salt. Fbay baldwin (more content not included)... Normal [facility] INSULINon 01-25-2022 Insulin 11.1 uIU/mL Normal 2.6-24.9 [facility] Comment on above: Performed By: #### U TOMAS, TSH, CMP, LIPID, T7 #### [facility] [address] [address] [address] Hugh Landis CBC AUTO DIFFon 01-24-2022 BASO # 0.1 103/ul Normal 0.0-0.1 [facility] Comment on above: Performed By: #### C MP, LIPID, TSH #### [facility] [address] [address] [address] Hugh Landis Basophils/100 WBC (Bld) 1.3 % Normal 0.2-2.0 [facility] Comment on above: Performed By: #### C MP, LIPID, TSH #### [facility] [address] [address] [address] Hugh Landis EO # 0.2 103/ul Normal 0.0-0.7 [facility] Comment on above: Performed By: #### C MP, LIPID, TSH #### [facility] [address] [address] [address] Hugh Landis Eosinophils/100 WBC (Bld) 4.7 % Normal 0.9-7.0 [facility] Comment on above: Performed By: #### C MP, LIPID, TSH #### [facility] [address] [address] [address] Hugh Landis Erythrocyte distribution width (RBC) [Ratio] 12.6 % Normal 11.0-15.0 [facility] Comment on above: Performed By: #### C MP, LIPID, TSH #### [facility] [address] [address] [address] Hugh Landis Hematocrit (Bld) [Volume fraction] 39.1 % Critically low 42.0-54.0 [facility] Comment on above: Performed By: #### C MP, LIPID, TSH #### [facility] [address] [place] [address] Dr. Hugh Landis Hemoglobin (Bld) [Mass/Vol] 12.4 g/dL Critically low 14.0-18.0 [facility] Comment on above: Performed By: #### C MP, LIPID, TSH #### [facility] [address] [place] [address] Dr. Hugh Landis IG # 0.01 10e3/ul Normal 0.00-0.03 [facility] Comment on above: Performed By: #### C MP, LIPID, TSH #### [facility] [address] [place] [address] Dr. Hugh Landis IG % 0.2 % Normal 0.0-0.5 [facility] Comment on above: Performed By: #### C MP, LIPID, TSH #### [facility] [address] [place] [address] Dr. Hugh Landis LYMPH # 0.9 103/ul Critically low 1.2-3.8 [facility] Comment on above: Performed By: #### C MP, LIPID, TSH #### [facility] [address] [place] [address] Dr. Hugh Landis Lymphocytes/100 WBC (Bld) 19.4 % Critically low 20.5-60.0 [facility] Comment on above: Performed By: #### C MP, LIPID, TSH #### [facility] [address] [place] [address] Dr. Hugh Landis MANUAL DIFF REQ NO Normal [facility] Comment on above: Performed By: #### C MP, LIPID, TSH #### [facility] [address] [place] [address] Dr. Hugh Landis MCH (RBC) [Entitic mass] 29.2 pg Normal 25.9-34.0 [facility] Comment on above: Performed By: #### C MP, LIPID, TSH #### [facility] [address] [place] [address] Dr. Hugh Landis MCHC (RBC) [Mass/Vol] 31.7 g/dL Normal 29.9-35.2 [facility] Comment on above: Performed By: #### C MP, LIPID, TSH #### [facility] [address] [place] [address] Dr. Hugh Landis MCV (RBC) [Entitic vol] 92.0 fL Normal 80.0-94.0 [facility] Comment on above: Performed By: #### C MP, LIPID, TSH #### [facility] [address] [place] [address] Dr. Hugh Landis MONO # 0.5 103/ul Normal 0.3-0.8 [facility] Comment on above: Performed By: #### C MP, LIPID, TSH #### [facility] [address] [place] [address] Dr. Hugh Landis Monocytes/100 WBC (Bld) 9.6 % Normal 1.7-12.0 [facility] Comment on above: Performed By: #### C MP, LIPID, TSH #### [facility] [address] [place] [address] Dr. Hugh Landis NEUT # 3.0 103/ul Normal 1.4-6.5 [facility] Comment on above: Performed By: #### C MP, LIPID, TSH #### [facility] [address] [place] [address] Dr. Hugh Landis Neutrophils/100 WBC (Bld) 64.8 % Normal 43.0-75.0 [facility] Comment on above: Performed By: #### C MP, LIPID, TSH #### [facility] [address] [place] [address] Dr. Hugh Landis Platelet mean volume (Bld) [Entitic vol] 9.4 fL Critically low 9.5-13.5 [facility] Comment on above: Performed By: #### C MP, LIPID, TSH #### [facility] [address] [address] [address] Hugh Landis PLT 232 103/ul Normal 150-450 [facility] Comment on above: Performed By: #### C MP, LIPID, TSH #### [facility] [address] [address] [address] Hugh Landis RBC 4.25 106/ul Critically low 4.70-6.10 [facility] Comment on above: Performed By: #### C MP, LIPID, TSH #### [facility] [address] [address] [address] Hugh Landis WBC 4.7 103/ul Normal 4.0-11.0 [facility] Comment on above: Performed By: #### C MP, LIPID, TSH #### [facility] [address] [place] [address] Dr. Hugh Landis FREE THYROXINE INDEX T7on FTI 2.65 Normal 1.30-4.50 [facility] Comment on above: Performed By: #### B MP #### [facility] [address] [place] [address] Dr. Hugh Landis T3U 34.0 % Normal 33.0-40.0 [facility] Comment on above: Performed By: #### B MP #### [facility] [address] [place] [address] Dr. Hugh Landis T4 [Mass/Vol] 7.80 ug/dL Normal 4.50-12.10 [facility] Comment on above: Performed By: #### B MP #### [facility] [address] [place] [address] Dr. Hugh Landis GLYCOHEMOGLOBIN A1Con 2021 ADA RECOMMENDATION SEE BELOW Normal [facility] Comment on above: Result Comment: ADA RECOMMENDED LIMIT 4.0 - 6.0 ADA THERAPEUTIC TARGET < 7.0 ACTION SUGGESTED > 7.0 Performed By: #### C MP, LIPID, TSH #### [facility] [address] [place] [address] Dr. Hugh Landis Glucose [Mass/Vol] 123 mg/dL Normal [facility] Comment on above: Performed By: #### C MP, LIPID, TSH #### [facility] [address] [address] [address] Hugh Landis HbA1c (Bld) [Mass fraction] 5.9 % Normal 4.5-6.2 [facility] Comment on above: Performed By: #### C MP, LIPID, TSH #### [facility] [address] [address] [address] Hugh Landis LIPID PROFILEon 01-24-2022 CHOL-HDL RATIO NORM SEE BELOW Normal [facility] Comment on above: Result Comment: 3.3 - 4.4 LOW RISK 4.4 - 7.1 AVERAGE RISK 7.1 - 11.0 MODERATE RISK >11.0 HIGH RISK Performed By: #### U TOMAS, TSH, CMP, LIPID, T7 #### [facility] [address] [address] [address] Hugh Landis Cholesterol [Mass/Vol] 179 mg/dL Normal <=200 [facility] Comment on above: Performed By: #### U TOMAS, TSH, CMP, LIPID, T7 #### [facility] [address] [address] [address] Hugh Landis Cholesterol in HDL [Mass/Vol] 46 mg/dL Normal 40-60 [facility] Comment on above: Performed By: #### U TOMAS, TSH, CMP, LIPID, T7 #### [facility] [address] [address] [address] Hugh Landis Cholesterol in LDL [Mass/Vol] 100.4 mg/dL Normal [facility] Comment on above: Performed By: #### U TOMAS, TSH, CMP, LIPID, T7 #### [facility] [address] [address] [address] Hugh Landis Cholesterol.total/C holesterol in HDL [Mass ratio] 3.9 {ratio} Normal [facility] Comment on above: Performed By: #### U TOMAS, TSH, CMP, LIPID, T7 #### [facility] [address] [address] [address] Hugh Landis HDL NORMAL > or = 60 mg/dl - LO W CARDIOVASCULAR RISK <40 mg/dl - HIGH CARDIOVASCULAR RISK Normal [facility] Comment on above: Performed By: #### U TOMAS, TSH, CMP, LIPID, T7 #### [facility] [address] [address] [address] Hugh Landis LDL CALC NORMAL SEE BELOW Normal [facility] Comment on above: Result Comment: <100 mg/dl OPTIMAL 100 - 129 mg/dl NEAR OR ABOVE OPTIMAL 130 - 159 mg/dl BORDERLINE HIGH 160 - 189 mg/dl HIGH >190 mg/dl VERY HIGH Performed By: #### U TOMAS, TSH, CMP, LIPID, T7 #### [facility] [address] [address] [address] Hugh Lnadis Triglyceride [Mass/Vol] 163 mg/dL Critically high <=150 [facility] Comment on above: Performed By: #### U TOMAS, TSH, CMP, LIPID, T7 #### [facility] [address] [address] [address] Hugh Landis VLDL CALC 32.6 mg/dL Normal [facility] Comment on above: Performed By: #### U TOMAS, TSH, CMP, LIPID, T7 #### [facility] [address] [address] [address] Hugh Landis PROF 14(COMP METB)on 022 Albumin [Mass/Vol] 3.6 g/dL Normal 3.4-5.0 [facility] Comment on above: Performed By: #### U TOMAS, TSH, CMP, LIPID, T7 #### [facility] [address] [address] [address] Hugh Landis Albumin/Globulin [Mass ratio] 0.9 {ratio} Normal [facility] Comment on above: Performed By: #### U TOMAS, TSH, CMP, LIPID, T7 #### [facility] [address] [address] [address] Hugh Landis ALP [Catalytic activity/Vol] 81 U/L Normal 46-116 [facility] Comment on above: Performed By: #### U TOMAS, TSH, CMP, LIPID, T7 #### [facility] [address] [address] [address] Hugh Landis ALT [Catalytic activity/Vol] 19 U/L Normal 16-63 [facility] Comment on above: Performed By: #### U TOMAS, TSH, CMP, LIPID, T7 #### [facility] [address] [address] [address] Hugh Landis Anion gap [Moles/Vol] 13.4 mmol/L Normal [facility] Comment on above: Performed By: #### U TOMAS, TSH, CMP, LIPID, T7 #### [facility] [address] [address] [address] Hugh Landis AST [Catalytic activity/Vol] 16 U/L Normal 15-37 [facility] Comment on above: Performed By: #### U TOMAS, TSH, CMP, LIPID, T7 #### [facility] [address] [address] [address] Hugh Landis Bilirubin [Mass/Vol] 0.5 mg/dL Normal 0.2-1.0 [facility] Comment on above: Performed By: #### U TOMAS, TSH, CMP, LIPID, T7 #### [facility] [address] [address] [address] Hugh Landis Calcium [Mass/Vol] 9.7 mg/dL Normal 8.5-10.1 [facility] Comment on above: Performed By: #### U TOMAS, TSH, CMP, LIPID, T7 #### [facility] [address] [address] [address] Hugh Landis Chloride [Moles/Vol] 105 mmol/L Normal 98-107 [facility] Comment on above: Performed By: #### U TOMAS, TSH, CMP, LIPID, T7 #### [facility] [address] [address] [address] Hugh Landis CO2 [Moles/Vol] 27.4 mmol/L Normal 21.0-32.[address] [facility] Comment on above: Performed By: #### U TOMAS, TSH, CMP, LIPID, T7 #### [facility] [address] [address] [address] Hugh Landis Creatinine [Mass/Vol] 1.37 mg/dL Critically high 0.70-1.30 [facility] Comment on above: Performed By: #### U TOMAS, TSH, CMP, LIPID, T7 #### [facility] [address] [address] [address] Hugh Landis EGFR-AF GUAMANIAN >60 Normal >=[address] [facility] Comment on above: Performed By: #### U TOMAS, TSH, CMP, LIPID, T7 #### [facility] [address] [address] [address] Hugh Landis EGFR-NON AF GUAMANIAN 53 mL/min/1.73m2 Critically low >=60 [facility] Comment on above: Performed By: #### U TOMAS, TSH, CMP, LIPID, T7 #### [facility] [address] [place] [address] Dr. Hugh Landis Globulin (S) [Mass/Vol] 4.0 g/dL Normal [facility] Comment on above: Performed By: #### U TOMAS, TSH, CMP, LIPID, T7 #### [facility] [address] [address] [address] Hugh Landis Glucose [Mass/Vol] 113 mg/dL Critically high 74-106 [facility] Comment on above: Performed By: #### U TOMAS, TSH, CMP, LIPID, T7 #### [facility] [address] [address] [address] Hugh Landis Potassium [Moles/Vol] 3.8 mmol/L Normal 3.5-5.1 [facility] Comment on above: Performed By: #### U TOMAS, TSH, CMP, LIPID, T7 #### [facility] [address] [address] [address] Hugh Landis Protein [Mass/Vol] 7.6 g/dL Normal 6.4-8.2 [facility] Comment on above: Performed By: #### U TOMAS, TSH, CMP, LIPID, T7 #### [facility] [address] [address] [address] Hugh Landis Sodium [Moles/Vol] 142 mmol/L Normal 136-145 [facility] Comment on above: Performed By: #### U TOMAS, TSH, CMP, LIPID, T7 #### [facility] [address] [address] [address] Hugh Landis Urea nitrogen [Mass/Vol] 21.0 mg/dL Critically high 7.0-18.0 [facility] Comment on above: Performed By: #### U TOMAS, TSH, CMP, LIPID, T7 #### [facility] [address] [address] [address] Hugh Landis Urea nitrogen/Creatinine [Mass ratio] 15.3 mg/mg Normal [facility] Comment on above: Performed By: #### U TOMAS, TSH, CMP, LIPID, T7 #### [facility] [address] [place] [address] Dr. Hugh Landis TSHon 01-24-2022 TSH 0.663 uIU/mL Normal 0.358-3.740 [facility] Comment on above: Performed By: #### U TOMAS, TSH, CMP, LIPID, T7 #### [facility] [address] [address] [address] Hugh Landis URIC ACID SERUMon 01-24-2022 Urate [Mass/Vol] 6.9 mg/dL Normal 3.5-7.[address] [facility] Comment on above: Performed By: #### B MP #### [facility] [address] [place] [address] Dr. Hugh Landis VITAMIN D 25 OHon 01-24-2022 VIT D 25-OH 37.0 ng/mL Normal [facility] Comment on above: Performed By: #### P TT #### [facility] [address] [place] [address] Dr. Hugh Landis VIT D RANGES SEE BELOW Normal [facility] Comment on above: Result Comment: <20 ng/mL Vit D deficient 20 - <30 ng/mL Vit D insufficient 30 - 100 ng/mL Vit D sufficient >100 ng/mL Potential Toxicity Performed By: #### P TT #### [facility] [address] [place] [address] Dr. Hugh Landis 36on 01-22-2022 36 Called patient's wif e to discuss her FMLA forms no answer left detailed message. I will discuss a continus leave with Dr. Helm on 01/24/22 forms will then be updated based on his decision, the interment leave was requested from patient directly! Any changes made now will be based on Dr. Helm's discretion. [facility] Office Visiton 01-17-2022 Follow-up visit [id number] Sukhdeep Simental 1965 M Date Provider Department Center 01/17/2022 [facility] Family History Problem Relation Age of Onset Dementia Mother Esophageal cancer Father Alcohol abuse Father Family Status - Relation Status Age at Mother Alive Father Level of Service:28369 [place] PHYS/QHP TELEPHONE EVALUATION 11-20 MIN Reason for Visit and Comments: Infection in right knee [Other] [facility] Office Visiton 01-12-2022 Follow-up visit [id number] Sukhdeep Simental 1965 M Date Provider Department Center 01/12/2022 [facility] Family History Problem Relation Age of Onset Dementia Mother Esophageal cancer Father Alcohol abuse Father Family Status - Relation Status Age at Mother Alive Father Level of Service:37544 [place] POSTOP FOLLOW UP VISIT RELATED TO ORIGINAL PX (GC) Reason for Visit and Comments: Follow-up [336088] Pain [136] [facility] 01-11-2022 36 Jacob from ortho calling as pt concerned because [facility] where he is receiving his dalbavancin commented that the 1500 mg usually given only x 1. I reinforced that I spoke directly to Dr Richter and this x 2 was confirmed for his out pt infusions [facility] 3601-09-2022 36 Clarified with [facility] -Dalbavancin dose 1500 mg x 2 one week apart. [facility] 3601-04-2022 36 Confirmed with pt an d made f/up he is going back for 2nd dalba 01/09 [facility] 30on 01-02-2022 30 The patient is Moderately Stable - Low risk of patient condition declining or worsening The patient's goals for the shift include comfort The clinical goals for the shift include potential discharge Over the shift, the patient did not make progress toward the following goals. Barriers to progression include n/a. Recommendations to address these barriers include n/a. Normal [facility] BASIC METABOLIC PANELon 11-0 Anion gap [Moles/Vol] 4 mmol/L Low 7-20 [facility] Comment on above: Performed By: #### L [id number] ####[facility] ([facility])[address] [address] Calcium [Mass/Vol] 8.9 mg/dL Normal 8.6-10.3 [facility] Comment on above: Performed By: #### L [id number] ####[facility] ([facility])[address] [place] [address] Chloride [Moles/Vol] 107 mmol/L Normal 98-107 [facility] Comment on above: Performed By: #### L [id number] ####[facility] ([facility])[address] [place] [address] CO2 [Moles/Vol] 30 mmol/L Normal 21-31 [facility] Comment on above: Performed By: #### L [id number] ####[facility] ([facility])[address] [place] [address] Creatinine [Mass/Vol] 1.23 mg/dL Normal 0.70-1.30 [facility] Comment on above: Performed By: #### L [id number] ####[facility] ([facility])[address] [facility] [address] GLOMERULAR FILTRATION RATE ML/MIN/1.73 SQ M.PREDICTED 64.3 mL/min/1.73m*2 Normal >60.0 [facility] Comment on above: Result Comment: [facility]???s estimated glomerular filtration rate (eGFR) will no longer include consideration of race in its calculation. The National Kidney Foundation???s eGFR Task Force developed new recommendations for the estimation of the glomerular filtration rate in the [place] They recommend immediate implementation of the new equation refit without the race variable in all laboratories because the calculation does not include race. In addition to not including race in the calculation and reporting, it included diversity in its development, and has acceptable performance characteristics and potential consequences that do not disproportionately affect any one group of individuals. Performed By: #### L [id number] ####[facility] ([facility])[address] [place] [address] Glucose [Mass/Vol] 102 mg/dL High 70-100 [facility] Comment on above: Performed By: #### L [id number] ####[facility] ([facility])[address] [facility] [place] [address] Potassium [Moles/Vol] 4.4 mmol/L Normal 3.5-5.1 [facility] Comment on above: Performed By: #### L [id number] ####[facility] ([facility])[address] [facility] [place] [address] Sodium [Moles/Vol] 141 mmol/L Normal 136-145 [facility] Comment on above: Performed By: #### L [id number] ####[facility] ([facility])[address] [place] [address] Urea nitrogen [Mass/Vol] 12 mg/dL Normal 7-25 [facility] Comment on above: Performed By: #### L [id number] ####[facility] ([facility])[address] [place] [address] UREA NITROGEN/CREATININE (MASS RATIO) IN SER/PLAS 9.76 Normal [facility] Comment on above: Performed By: #### L [id number] ####[facility] ([facility])[address] [facility] [place] [address] DSon 01-02-2022 DS Admission Admitted 12/27/2021 for Chronic instability of right knee Discharge Diagnosis Right knee periprosthetic infection. Discharge Disposition Home-Health Care [facility] Discharge Medications Your medication list START taking these medications Instructions Last Dose Given Next Dose Due acetaminophen 500 mg tablet Commonly known as: Tylenol Take 2 tablets (1,000 mg) by mouth every 8 (eight) hours for 7 days. apixaban 2.5 mg tablet Commonly known as: Eliquis Take 1 tablet (2.5 mg) by mouth in the morning and at bedtime. Take this medication as prescribed to prevent a blood clot. docusate sodium 100 mg capsule Commonly known as: Colace Take 1 capsule (100 mg) by mouth in the morning and at bedtime for 10 days. Please take this medication as prescribed to prevent constipation if you are taking narcotics. oxyCODONE 5 mg immediate release tablet Commonly known as: Roxicodone Take 1 tablet (5 mg) by mouth every 6 (six) hours if needed for severe pain (8-10 pain score) for up to 7 days. CONTINUE taking these medications Instructions Last Dose Given Next Dose Due bumetanide 1 mg tablet Commonly known as: Bumex doxazosin 4 mg tablet Commonly known as: Cardura famotidine 20 mg tablet Commonly known as: Pepcid ferrous sulfate 325 (65 Fe) MG tablet irbesartan 300 mg tablet Commonly known as: Avapro LORazepam 1 mg tablet Commonly known as: Ativan metoclopramide 10 mg tablet Commonly known as: Reglan pantoprazole 40 mg EC tablet Commonly known as: ProtoNix pioglitazone 15 mg tablet Commonly known as: Actos simvastatin 10 mg tablet Commonly known as: Zocor sucralfate 1 gram tablet Commonly known as: Carafate tamsulosin 0.4 mg 24 hr capsule Commonly known as: Flomax testosterone cypionate 100 mg/mL injection Commonly known as: Depo-Testosterone testosterone cypionate 200 mg/mL injection Commonly known as: Depo-Testosterone traZODone 50 mg tablet Commonly known as: Desyrel ZANAFLEX ORAL STOP taking these medications HYDROcodone-acetaminop hen 5-325 mg tablet Commonly known as: [place] ASK your doctor about these medications Instructions Last Dose Given Next Dose Due dalbavancin 500 mg injection Commonly known as: Dalvanmerline Ask about: Should I take this medication? Infuse 1,500 mg into a venous catheter 1 (one) time for 1 dose. Do not start before January 01, 2022. Where to Get Your Medications You can get these medications from any pharmacy Bring a paper prescription for each of these medications acetaminophen 500 mg tablet apixaban 2.5 mg tablet dalbavancin 500 mg injection docusate sodium 100 mg capsule oxyCODONE 5 mg immediate release tablet Activity Do not drive or drink alcohol while taking narcotic pain medications. No tub baths, swimming, or submerging your incision. Keep clean and dry until your follow-up visit Diet Resume home diet. Allergies Loratadine and Iodine Hospital Course Sukhdeep was admitted for right knee revision arthroplasty. We are concerned with a right knee periprosthetic infection due to loose implants and frozen tissue samples which were indicative of infection. Due to this, we performed a stage I revision surgery where we remove the implants and placed an antibiotic cement spacer. After the surgery we consulted infectious disease. They helped place him on appropriate antibiotic regimen. The patient refused a PICC line for outpatient antibiotic therapy and because of this, they helped the patient set up an infusion of an antibiotic which has similar efficacy as vancomycin per infectious disease. We followed the patient's cultures during the patient's stay and while they are not growing any organisms, we still have a very high suspicion of a periprosthetic infection and we will treat him as such. Also during the patient's stay, he refused antihypertensive medications during episodes of hypertension. On the day of the patient's discharge, he refused IV vancomycin and we therefore attempted to give him doxycycline for 1 day but the patient is refusing. We will provide him a 1 day course of doxycycline in case he changes his mind however. Our social workers are helping him set up his antibiotic infusion so that he can get his first infusion the day after discharge. Of note, the patient was made nonweightbearing to the right lower extremity with a knee immobilizer that keeps his leg in extension. Pertinent Physical Exam At Time of Discharge Physical Exam: See progress note on day of discharge. Lab Results Labs Reviewed BODY FLUID CULTURE - Abnormal Result Value Culture No growth at 5 days Gram Stain Result Many Polymorphonuclear leukocytes (*) Gram Stain Result No organisms seen (*) POCT GLUCOSE METER UNSOLICITED RESULTS - Abnormal Glucose POC 183 (*) POCT GLUCOSE METER UNSOLICITED RESULTS - Abnormal Glucose POC 274 (*) BASIC METABOLIC PANEL - Abnormal Sodium 137 Potassium 4.4 C (more content not included)... Normal [facility] Orders Onlyon 01-02-2022 Orders Only [id number] Sukhdeep Simental 1965 M Date Provider Department Center 01/02/2022 1883-NADIRA AHN [facility] [address] Second Fl Family History Problem Relation Age of Onset Dementia Mother Esophageal cancer Father Alcohol abuse Father Family Status - Relation Status Age at Mother Alive Father Normal [facility] Orders Only [id number] Sukhdeep Simental 1965 M Date Provider Department Center 01/02/2022 1973-GRACIELA CASTAÑEDA [facility] 2A Second Fl Family History Problem Relation Age of Onset Dementia Mother Esophageal cancer Father Alcohol abuse Father Family Status - Relation Status Age at Mother Alive Father Normal [facility] POCT GLUCOSE METER UNSOLICIT ED RESULTSon 01-02-2022 Glucose [Mass/Vol] 139 mg/dL High 70-105 [facility] Comment on above: Result Comment: [email or web address] Performed By: #### L [id number] ####[facility] ([facility])[address] [place] [address] Glucose [Mass/Vol] 101 mg/dL Normal 70-105 [facility] Comment on above: Result Comment: [email or web address] [email or web address] Performed By: #### L [id number] ####[facility] ([facility])[address] [place] [address] VANCOMYCIN, PEAKon 2 VANCOMYCIN (UG/ML) IN SER/PLAS - PEAK 13.0 ug/mL Low 20.0-50.0 [facility] Comment on above: Performed By: #### L [id number] ####[facility] ([facility])[address] [place] [address] VANCOMYCIN, TROUGHon 022 VANCOMYCIN (UG/ML) IN SER/PLAS - TROUGH 10.5 ug/mL Normal 5.0-20.0 [facility] Comment on above: Performed By: #### L [id number] #### [facility] ([facility]) [address] [place] [address] NURSNOTEon 01-01-2022 NURSNOTE Pt with increased BP at 178/96 P- 74. PRN labetalol given per orders. Hospitalist aware. Pt remains asymptomatic. Normal [facility] POCT GLUCOSE METER UNSOLICIT ED RESULTSon 01-01-2022 Glucose [Mass/Vol] 150 mg/dL High 70-105 [facility] Comment on above: Result Comment: [email or web address] Performed By: #### L [id number] ####[facility] ([facility])[address] [place] [address] Glucose [Mass/Vol] 113 mg/dL High 70-105 [facility] Comment on above: Result Comment: [email or web address] Performed By: #### L [id number] ####[facility] ([facility])[address] [place] [address] Glucose [Mass/Vol] 128 mg/dL High 70-105 [facility] Comment on above: Result Comment: [email or web address] be Performed By: #### L [id number] ####[facility] ([facility])[address] [place] [address] Glucose [Mass/Vol] 111 mg/dL High 70-105 [facility] Comment on above: Result Comment: [email or web address] Performed By: #### L [id number] #### [facility] ([facility]) [address] [place] [address] BASIC METABOLIC PANELon 11-0 -2021 Anion gap [Moles/Vol] 5 mmol/L Low 7-20 [facility] Comment on above: Performed By: #### L [id number] #### [facility] ([facility]) [address] [place] [address] Calcium [Mass/Vol] 8.4 mg/dL Low 8.6-10.3 [facility] Comment on above: Performed By: #### L [id number] #### [facility] ([facility]) [address] [place] [address] Chloride [Moles/Vol] 107 mmol/L Normal 98-107 [facility] Comment on above: Performed By: #### L [id number] #### [facility] ([facility]) [address] [place] [address] CO2 [Moles/Vol] 27 mmol/L Normal 21-31 [facility] Comment on above: Performed By: #### L [id number] #### [facility] ([facility]) [address] [place] [address] Creatinine [Mass/Vol] 1.30 mg/dL Normal 0.70-1.30 [facility] Comment on above: Performed By: #### L [id number] #### [facility] ([facility]) [address] [facility] [place] [address] GLOMERULAR FILTRATION RATE ML/MIN/1.73 SQ M.PREDICTED 60.1 mL/min/1.73m*2 Normal >60.0 [facility] Comment on above: Result Comment: [facility]???s estimated glomerular filtration rate (eGFR) will no longer include consideration of race in its calculation. The National Kidney Foundation???s eGFR Task Force developed new recommendations for the estimation of the glomerular filtration rate in the [place] They recommend immediate implementation of the new equation refit without the race variable in all laboratories because the calculation does not include race. In addition to not including race in the calculation and reporting, it included diversity in its development, and has acceptable performance characteristics and potential consequences that do not disproportionately affect any one group of individuals. Performed By: #### L [id number] #### [facility] ([facility]) [address] [place] [address] Glucose [Mass/Vol] 150 mg/dL High 70-100 [facility] Comment on above: Performed By: #### L [id number] #### [facility] ([facility]) [address] [place] [address] Potassium [Moles/Vol] 3.7 mmol/L Normal 3.5-5.1 [facility] Comment on above: Performed By: #### L [id number] #### [facility] ([facility]) [address] [place] [address] Sodium [Moles/Vol] 139 mmol/L Normal 136-145 [facility] Comment on above: Performed By: #### L [id number] #### [facility] ([facility]) [address] [place] [address] Urea nitrogen [Mass/Vol] 14 mg/dL Normal 7-25 [facility] Comment on above: Performed By: #### L [id number] #### [facility] ([facility]) [address] [place] [address] UREA NITROGEN/CREATININE (MASS RATIO) IN SER/PLAS 10.77 Normal [facility] Comment on above: Performed By: #### L [id number] #### [facility] ([facility]) [address] [place] [address] CBC WITH AUTO DIFFERENTIALon 12-31-2021 Basophils (Bld) [#/Vol] 0.03 10*3/uL Normal 0.00-0.20 [facility] Comment on above: Performed By: #### L [id number] #### [facility] ([facility]) [address] [place] [address] Basophils/100 WBC (Bld) 0.5 % Normal 0.0-1.0 [facility] Comment on above: Performed By: #### L [id number] #### [facility] ([facility]) [address] [place] [address] Eosinophils (Bld) [#/Vol] 0.32 10*3/uL Normal 0.00-0.50 [facility] Comment on above: Performed By: #### L [id number] #### [facility] ([facility]) [address] [place] [address] Eosinophils/100 WBC (Bld) 4.8 % Normal 0.0-6.0 [facility] Comment on above: Performed By: #### L [id number] #### [facility] ([facility]) [address] [place] [address] ERYTHROCYTE DISTRIBUTION WIDTH (RATIO) STANDARD DEVIATION 44.7 Normal [facility] Comment on above: Performed By: #### L [id number] #### [facility] ([facility]) [address] [place] [address] Erythrocyte distribution width (RBC) [Ratio] 13.3 % Normal 11.5-15.0 [facility] Comment on above: Performed By: #### L [id number] #### [facility] ([facility]) [address] [place] [address] ERYTHROCYTE MEAN CORPUSCULAR HEMOGLOBIN CONCENTRATION (G/DL) BY AUTOMATED 32.3 g/dL Normal 32.0-35.0 [facility] Comment on above: Performed By: #### L [id number] #### [facility] ([facility]) [address] [place] [address] Hematocrit (Bld) [Volume fraction] 35.3 % Low 39.0-55.0 [facility] Comment on above: Performed By: #### L [id number] #### [facility] ([facility]) [address] [place] [address] Hemoglobin (Bld) [Mass/Vol] 11.4 g/dL Low 13.0-17.0 [facility] Comment on above: Performed By: #### L [id number] #### [facility] ([facility]) [address] [place] [address] Immature granulocytes (Bld) [#/Vol] 0.04 10*3/uL Normal 0.00-0.20 [facility] Comment on above: Performed By: #### L [id number] #### [facility] ([facility]) [address] [place] [address] Immature granulocytes/100 WBC (Bld) 0.6 % Normal 0.0-1.0 [facility] Comment on above: Performed By: #### L [id number] #### [facility] ([facility]) [address] [place] [address] Lymphocytes (Bld) [#/Vol] 1.44 10*3/uL Normal 1.20-4.00 [facility] Comment on above: Performed By: #### L [id number] #### [facility] ([facility]) [address] [place] [address] Lymphocytes/100 WBC (Bld) 21.7 % Normal 20.0-45.0 [facility] Comment on above: Performed By: #### L [id number] #### [facility] ([facility]) [address] [place] [address] MCH (RBC) [Entitic mass] 30.1 pg Normal 27.0-33.0 [facility] Comment on above: Performed By: #### L [id number] #### [facility] ([facility]) [address] [place] [address] MCV (RBC) [Entitic vol] 93.1 fL Normal 82.0-98.0 [facility] Comment on above: Performed By: #### L [id number] #### [facility] ([facility]) [address] [place] [address] Monocytes (Bld) [#/Vol] 0.61 10*3/uL Normal 0.10-1.00 [facility] Comment on above: Performed By: #### L [id number] #### [facility] ([facility]) [address] [place] [address] Monocytes/100 WBC (Bld) 9.2 % Normal 5.0-12.0 [facility] Comment on above: Performed By: #### L [id number] #### [facility] ([facility]) [address] [place] [address] Neutrophils (Bld) [#/Vol] 4.19 10*3/uL Normal 1.60-7.60 [facility] Comment on above: Performed By: #### L [id number] #### [facility] ([facility]) [address] [place] [address] Neutrophils/100 WBC (Bld) 63.2 % Normal 40.0-72.0 [facility] Comment on above: Performed By: #### L [id number] #### [facility] ([facility]) [address] [place] [address] NRBC (PER 100 WBCS) BY AUTOMATED COUNT 0.0 % Normal 0.0-0.0 [facility] Comment on above: Performed By: #### L [id number] #### [facility] ([facility]) [address] [place] [address] PLATELETS (10*3/UL) IN BLOOD AUTOMATED COUNT 228 10*3/uL Normal 150-400 [facility] Comment on above: Performed By: #### L [id number] #### [facility] ([facility]) [address] [place] [address] RBC (Bld) [#/Vol] 3.79 10*6/uL Low 4.20-5.[address] [facility] Comment on above: Performed By: #### L [id number] #### [facility] ([facility]) [address] [place] [address] WBC (Bld) [#/Vol] 6.63 10*3/uL Normal 4.00-10.[address] [facility] Comment on above: Performed By: #### L [id number] #### [facility] ([facility]) [address] [place] [address] POCT GLUCOSE METER UNSOLICIT ED RESULTSon 12-31-2021 Glucose [Mass/Vol] 129 mg/dL High 70-105 [facility] Comment on above: Result Comment: [email or web address] Performed By: #### L [id number] #### [facility] ([facility]) [address] [place] [address] Glucose [Mass/Vol] 136 mg/dL High 70-105 [facility] Comment on above: Result Comment: elac umsky Performed By: #### L [id number] #### [facility] ([facility]) [address] [place] [address] Glucose [Mass/Vol] 148 mg/dL High 70-105 [facility] Comment on above: Result Comment: elac umsky Performed By: #### L [id number] ####[facility] ([facility])[address] [place] [address] Glucose [Mass/Vol] 109 mg/dL High 70-105 [facility] Comment on above: Result Comment: elac umsky Performed By: #### L [id number] ####[facility] ([facility])[address] [place] [address] POCT GLUCOSE METER UNSOLICIT ED RESULTSon 12-30-2021 Glucose [Mass/Vol] 128 mg/dL High 70-105 [facility] Comment on above: Result Comment: [email or web address] Performed By: #### L [id number] ####[facility] ([facility])[address] [place] [address] Glucose [Mass/Vol] 117 mg/dL High 70-105 [facility] Comment on above: Result Comment: elac umsky Performed By: #### L [id number] #### [facility] ([facility]) [address] [place] [address] Glucose [Mass/Vol] 128 mg/dL High 70-105 [facility] Comment on above: Result Comment: [email or web address] Performed By: #### L [id number] ####[facility] ([facility])[address] [place] [address] Glucose [Mass/Vol] 94 mg/dL Normal 70-105 [facility] Comment on above: Result Comment: elac umsky Performed By: #### L [id number] ####[facility] ([facility])[address] [place] [address] POCT GLUCOSE METER UNSOLICIT ED RESULTSon 12-29-2021 Glucose [Mass/Vol] 153 mg/dL High 70-105 [facility] Comment on above: Result Comment: [email or web address] Performed By: #### L [id number] ####[facility] ([facility])[address] [place] [address] Glucose [Mass/Vol] 130 mg/dL High 70-105 [facility] Comment on above: Result Comment: ayah [email or web address] Performed By: #### L [id number] #### [facility] ([facility]) [address] [place] [address] Glucose [Mass/Vol] 98 mg/dL Normal 70-105 [facility] Comment on above: Result Comment: [email or web address] [email or web address] Performed By: #### L [id number] #### [facility] ([facility]) [address] [place] [address] Glucose [Mass/Vol] 124 mg/dL High 70-105 [facility] Comment on above: Result Comment: [email or web address] [email or web address] Performed By: #### L [id number] ####[facility] ([facility])[address] [place] [address] VANCOMYCIN, PEAKon VANCOMYCIN (UG/ML) IN SER/PLAS - PEAK 20.6 ug/mL Normal 20.0-50.0 [facility] Comment on above: Order Comment: (NOT duplicated order) Performed By: #### L [id number] #### [facility] ([facility]) [address] [place] [address] BASIC METABOLIC PANELon 110 Anion gap [Moles/Vol] 7 mmol/L Normal 7-20 [facility] Comment on above: Performed By: #### L [id number] ####[facility] ([facility])[address] [place] [address] Calcium [Mass/Vol] 8.4 mg/dL Low 8.6-10.3 [facility] Comment on above: Performed By: #### L [id number] ####[facility] ([facility])[address] [place] [address] Chloride [Moles/Vol] 107 mmol/L Normal 98-107 [facility] Comment on above: Performed By: #### L [id number] ####[facility] ([facility])[address] [place] [address] CO2 [Moles/Vol] 25 mmol/L Normal 21-31 [facility] Comment on above: Performed By: #### L [id number] ####[facility] ([facility])[address] [place] [address] Creatinine [Mass/Vol] 1.34 mg/dL High 0.70-1.30 [facility] Comment on above: Performed By: #### L [id number] ####[facility] ([facility])[address] [place] [address] GLOMERULAR FILTRATION RATE ML/MIN/1.73 SQ M.PREDICTED 58.0 mL/min/1.73m*2 Low >60.0 [facility] Comment on above: Result Comment: [facility]???s estimated glomerular filtration rate (eGFR) will no longer include consideration of race in its calculation. The National Kidney Foundation???s eGFR Task Force developed new recommendations for the estimation of the glomerular filtration rate in the [place] They recommend immediate implementation of the new equation refit without the race variable in all laboratories because the calculation does not include race. In addition to not including race in the calculation and reporting, it included diversity in its development, and has acceptable performance characteristics and potential consequences that do not disproportionately affect any one group of individuals. Performed By: #### L [id number] ####[facility] ([facility])[address] [place] [address] Glucose [Mass/Vol] 208 mg/dL High 70-100 [facility] Comment on above: Performed By: #### L [id number] ####[facility] ([facility])[address] [place] [address] Potassium [Moles/Vol] 5.1 mmol/L Normal 3.5-5.1 [facility] Comment on above: Performed By: #### L [id number] ####[facility] ([facility])[address] [place] [address] Sodium [Moles/Vol] 139 mmol/L Normal 136-145 [facility] Comment on above: Performed By: #### L [id number] ####[facility] ([facility])[address] [facility] [place] [address] Urea nitrogen [Mass/Vol] 23 mg/dL Normal 7-25 [facility] Comment on above: Performed By: #### L [id number] ####[facility] ([facility])[address] [place] [address] UREA NITROGEN/CREATININE (MASS RATIO) IN SER/PLAS 17.16 Normal [facility] Comment on above: Performed By: #### L [id number] ####[facility] ([facility])[address] [place] [address] C-REACTIVE PROTEINon 022 C REACTIVE PROTEIN (MG/L) IN SER/PLAS 14.2 mg/L High 0.0-7.0 [facility] Comment on above: Performed By: #### L [id number] #### [facility] ([facility]) [address] [place] [address] CBCon 12-28-2021 Erythrocyte distribution width (RBC) [Ratio] 13.2 % Normal 11.5-15.0 [facility] Comment on above: Performed By: #### L [id number] #### [facility] ([facility]) [address] [place] [address] ERYTHROCYTE MEAN CORPUSCULAR HEMOGLOBIN CONCENTRATION (G/DL) BY AUTOMATED 32.7 g/dL Normal 32.0-35.0 [facility] Comment on above: Performed By: #### L [id number] #### [facility] ([facility]) [address] [place] [address] Hematocrit (Bld) [Volume fraction] 32.1 % Low 39.0-55.0 [facility] Comment on above: Performed By: #### L [id number] #### [facility] ([facility]) [address] [place] [address] Hemoglobin (Bld) [Mass/Vol] 10.5 g/dL Low 13.0-17.0 [facility] Comment on above: Performed By: #### L [id number] #### [facility] ([facility]) [address] [place] [address] MCH (RBC) [Entitic mass] 30.2 pg Normal 27.0-33.0 [facility] Comment on above: Performed By: #### L [id number] #### [facility] ([facility]) [address] [place] [address] MCV (RBC) [Entitic vol] 92.2 fL Normal 82.0-98.0 [facility] Comment on above: Performed By: #### L [id number] #### [facility] ([facility]) [address] [place] [address] PLATELETS (10*3/UL) IN BLOOD AUTOMATED COUNT 235 10*3/uL Normal 150-400 [facility] Comment on above: Performed By: #### L [id number] #### [facility] ([facility]) [address] [place] [address] RBC (Bld) [#/Vol] 3.48 10*6/uL Low 4.20-5.[address] [facility] Comment on above: Performed By: #### L [id number] #### [facility] ([facility]) [address] [place] [address] WBC (Bld) [#/Vol] 12.19 10*3/uL High 4.00-10.60 [facility] Comment on above: Performed By: #### L [id number] #### [facility] ([facility]) [address] [place] [address] POCT GLUCOSE METER UNSOLICIT ED RESULTSon 12-28-2021 Glucose [Mass/Vol] 187 mg/dL High 70-105 [facility] Comment on above: Result Comment: [email or web address] Performed By: #### L [id number] ####[facility] ([facility])[address] [place] [address] Glucose [Mass/Vol] 135 mg/dL High 70-105 [facility] Comment on above: Result Comment: [email or web address] Performed By: #### L [id number] ####[facility] ([facility])[address] [place] [address] Glucose [Mass/Vol] 180 mg/dL High 70-105 [facility] Comment on above: Result Comment: bcur ry Performed By: #### L [id number] #### [facility] ([facility]) [address] [place] [address] Glucose [Mass/Vol] 165 mg/dL High 70-105 [facility] Comment on above: Result Comment: bcur ry Performed By: #### L [id number] ####[facility] ([facility])[address] [place] [address] SEDIMENTATION RATEon 022 SEDIMENTATION RATE, ERYTHROCYTE 53 mm/hr High <=10 [facility] Comment on above: Performed By: #### L [id number] #### [facility] ([facility]) [address] [place] [address] VANCOMYCIN, TROUGHon 022 VANCOMYCIN (UG/ML) IN SER/PLAS - TROUGH 13.1 ug/mL Normal 5.0-20.0 [facility] Comment on above: Performed By: #### L [id number] ####[facility] ([facility])[address] [place] [address] BASIC METABOLIC PANELon 11-0 Anion gap [Moles/Vol] 8 mmol/L Normal 7-20 [facility] Comment on above: Performed By: #### L [id number] #### [facility] ([facility]) [address] [place] [address] Calcium [Mass/Vol] 8.7 mg/dL Normal 8.6-10.3 [facility] Comment on above: Performed By: #### L [id number] #### [facility] ([facility]) [address] [place] [address] Chloride [Moles/Vol] 104 mmol/L Normal 98-107 [facility] Comment on above: Performed By: #### L [id number] #### [facility] ([facility]) [address] [place] [address] CO2 [Moles/Vol] 25 mmol/L Normal 21-31 [facility] Comment on above: Performed By: #### L [id number] #### [facility] ([facility]) [address] [place] [address] Creatinine [Mass/Vol] 1.49 mg/dL High 0.70-1.30 [facility] Comment on above: Performed By: #### L [id number] #### [facility] ([facility]) [address] [place] [address] GLOMERULAR FILTRATION RATE ML/MIN/1.73 SQ M.PREDICTED 51.0 mL/min/1.73m*2 Low >60.0 [facility] Comment on above: Result Comment: [facility]???s estimated glomerular filtration rate (eGFR) will no longer include consideration of race in its calculation. The National Kidney Foundation???s eGFR Task Force developed new recommendations for the estimation of the glomerular filtration rate in the [place] They recommend immediate implementation of the new equation refit without the race variable in all laboratories because the calculation does not include race. In addition to not including race in the calculation and reporting, it included diversity in its development, and has acceptable performance characteristics and potential consequences that do not disproportionately affect any one group of individuals. Performed By: #### L [id number] #### [facility] ([facility]) [address] [place] [address] Glucose [Mass/Vol] 246 mg/dL High 70-100 [facility] Comment on above: Performed By: #### L [id number] #### [facility] ([facility]) [address] [place] [address] Potassium [Moles/Vol] 4.4 mmol/L Normal 3.5-5.1 [facility] Comment on above: Performed By: #### L [id number] #### [facility] ([facility]) [address] [place] [address] Sodium [Moles/Vol] 137 mmol/L Normal 136-145 [facility] Comment on above: Performed By: #### L [id number] #### [facility] ([facility]) [address] [place] [address] Urea nitrogen [Mass/Vol] 23 mg/dL Normal 7-25 [facility] Comment on above: Performed By: #### L [id number] #### [facility] ([facility]) [address] [place] [address] UREA NITROGEN/CREATININE (MASS RATIO) IN SER/PLAS 15.44 Normal [facility] Comment on above: Performed By: #### L [id number] #### [facility] ([facility]) [address] [place] [address] BODY FLUID CULTUREon 022 Bacteria identified Cx Nom (Unsp spec) No growth at 5 days Normal [facility] Comment on above: Order Comment: Pre-o p diagnosis:Chronic instability of right knee [M23.51]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, initial encounter ([facility]) [T84.032A]Quadriceps weakness [M62.81]Lumbosacral radiculopathy [M54.17] Performed By: #### L [id number] #### [facility] ([facility]) [address] [place] [address] GRAM STAIN RESULT Abnormal [facility] Comment on above: Order Comment: Pre-o p diagnosis:Chronic instability of right knee [M23.51]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, initial encounter ([facility]) [T84.032A]Quadriceps weakness [M62.81]Lumbosacral radiculopathy [M54.17] Result Comment: Many Polymorphonuclear leukocytes No organisms seen Performed By: #### L [id number] #### [facility] ([facility]) [address] [place] [address] CONSULTon 12-27-2021 CONSULT Infectious Diseases - Initial Consult Note - Please contact us via [employer] chat during business hours. If no response within 15 min and after hours, call [phone] Patient name: Sukhdeep Simental Patient Today's Date and Time: 12/27/2021, 1:28 PM Admission Date: 12/27/2021 While we are always available for questions, only new STAT consults need to be called, in which case a physician to physician call should take place. 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 At this point will start patient on vancomycin and ceftriaxone and de-escalate based on culture results for more today. Case discussed with patient and at bedside she decision-making made all questions answered. Subjective Reason for consultation / Chief complaint: Antibiotic management History of Present Illness Sukhdeep Simental is a 56 y.o.-year-old male who was initially admitted on 12/27/2021 total knee revision and removal of infected hardware. Patient has a past medical history of obesity, diabetes, hyperlipidemia, dependent edema leading to secondary cellulitis, multiple knee replacements and revisions. Patient states he denies having any fevers or chills prior to coming the hospital. Did notice movement of his prosthesis in his right joint. Went to Ortho clinic who recommended removal. Patient came to the hospital today for removal of hardware. 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 The prosthesis has been removed. Past Medical History: Past Medical History: Diagnosis Date Allergic rhinitis Anemia Anxiety BPH (benign prostatic hyperplasia) CKD (chronic kidney disease) 3 Diabetes ([facility]) GERD (gastroesophageal reflux disease) Hyperlipidemia Hyperparathyroidism ([facility]) Hypertension Lumbar pain OA (osteoarthritis) Obesity Obstetric pulmonary blood clot embolism, antepartum Sleep apnea Past Surgical History: Past Surgical History: Procedure Laterality Date ANKLE SURGERY Left JOINT REPLACEMENT Bilateral KIDNEY STONE SURGERY MULTIPLE LUMBAR FUSION STOMACH SURGERY N/A GASTRIC SLEEVE Medications: [START ON 12/28/2021] apixaban, 2.5 mg, oral, BID [START ON 12/28/2021] bumetanide, 1 mg, oral, Daily bupivacaine-epinephrin e, , , ceFAZolin, 3 g, intravenous, q8h docusate sodium, 100 mg, oral, BID doxazosin, 4 mg, oral, Daily famotidine, 20 mg, oral, Daily ferrous sulfate, 325 mg, oral, BID with meals lidocaine, , , Oxygen Therapy, , inhalation, Continuous pantoprazole, 40 mg, oral, Nightly simvastatin, 10 mg, oral, Nightly sucralfate, 1 g, oral, BID AC tamsulosin, 0.4 mg, oral, Daily traZODone, 50 mg, oral, Nightly vancomycin, , , Social History: Social History Socioeconomic History Marital status: Spouse name: None Number of children: None Years of education: None Highest education level: None Occupational History None Tobacco Use Smoking status: Never Smokeless tobacco: Never Vaping Use Vaping Use: Never used Substance and Sexual Activity Alcohol use: Never Drug use: Never Sexual activity: Defer Other Topics Concern None Social History Narrative None Social Determinants of Health Financial Resource Strain: Low Risk Difficulty of Paying Living Expenses: Not hard at all Food Insecurity: No Food Insecurity Worried About Running Out of Food in the Last Year: Never true Ran Out of Food in the Last Year: Never true Transportation Needs: No Transportation Needs Lack of Transportation (Medical): No Lack of Transportation (Non-Medical): No Physical Activity: Inactive Days of Exercise per Week: 0 days Minutes of Exercise per Session: 20 min Stress: No Stress Concern Present Feeling of Stress : Not at all Social Connections: Moderately Isolated Frequency of Communication with Friends and Family: More than three times a week Frequency of Social Gatherings with Friends and Family: Once a week Attends Zoroastrian Services: Never Active Member of Clubs or Organizations: No Attends Club or Organization Meetings: Never Marital Status: Intimate Partner Violence: Not At Risk Fear of Current or Ex-Partner: No Emotionally Abused: No Physically Abused: No Sexually Abused: No Housing Stability: Low Risk Unable to Pay for Housing in the Last Year: No Number of Places Lived in the Last Year: 1 Unstable Housing in the Last Year: No Family History: Family History Problem Relation Name Age of Onset Dementia Mother Esophageal cancer Father Alcohol abuse Father Immunization History: There is no immunization history on file for this patient. Allergies: Allergies Allergen Reactions Loratadine Other reaction(s): rash hives Iodine Rash Topical iodi (more content not included)... [facility] CONSULT -- Attestation signed by Kb Cordova MD at 12/27/2021 5:19 PM I personally saw and examined the patient on the same date of service as resident/fellow . I discussed the findings and therapeutic plan with the resident/fellow . I agree with the documentation, except for any edits/updates below. Teaching Physician's Revisions: agree with plan of care and documentation. Reason For Consult Medicinal management and reconciliation Referring Provider: Payton Helm MD History Of Present Illness Sukhdeep Simental is a 56 y.o. male with history of osteoarthritis ,non-insulin dependent diabetes mellitus, h/o DVT/PE, essential hypertension, CKD, GERD, anxiety/depression, hyperlipidemia, who is admitted for total knee revision and removal of hardware. He was following with orthopedic surgery for painful and unsteady R revision total knee arthroplasty. He had knee arthroscopy which showed elevated ESR, WBC count. Cultures of aspirate showed polymorphonuclear WBCs, but had no bacteria on gram stain and are NGTD. Ortho took him to surgery where they found right femoral knee joint that was loose. Past Medical History He has a past medical history of Allergic rhinitis, Anemia, Anxiety, BPH (benign prostatic hyperplasia), CKD (chronic kidney disease), Diabetes ([facility]), GERD (gastroesophageal reflux disease), Hyperlipidemia, Hyperparathyroidism (CMS/HCC), Hypertension, Lumbar pain, OA (osteoarthritis), Obesity, Obstetric pulmonary blood clot embolism, antepartum, and Sleep apnea. Surgical History He has a past surgical history that includes Stomach surgery (N/A); Kidney stone surgery; Lumbar fusion; Joint replacement (Bilateral); and Ankle surgery (Left). Family History Family History Problem Relation Name Age of Onset Dementia Mother Esophageal cancer Father Alcohol abuse Father Social History He reports that he has never smoked. He has never used smokeless tobacco. He reports that he does not drink alcohol and does not use drugs. Allergies Loratadine and Iodine Medications Medications Prior to Admission Medication Sig Dispense Refill Last Dose bumetanide (Bumex) 1 mg tablet Take 1 tablet by mouth in the morning. 12/26/2021 at 0800 doxazosin (Cardura) 4 mg tablet Take 4 mg by mouth in the morning. 12/27/2021 famotidine (Pepcid) 20 mg tablet in the morning. 12/27/2021 ferrous sulfate 325 (65 Fe) MG tablet Take 1 tablet by mouth in the morning and 1 tablet in the evening. Past Week HYDROcodone-acetaminop hen ([place]) 5-325 mg tablet Take 1 tablet by mouth every 4 (four) hours if needed for severe pain (8-10 pain score). 12/26/2021 at 2200 irbesartan (Avapro) 300 mg tablet Take 1 tablet by mouth in the morning. 12/26/2021 at 0800 metoclopramide (Reglan) 10 mg tablet Take 10 mg by mouth if needed. 12/26/2021 at 1600 pantoprazole (ProtoNix) 40 mg EC tablet Take 40 mg by mouth at bedtime. 12/26/2021 at 2200 pioglitazone (Actos) 15 mg tablet Take 30 mg by mouth in the morning. 12/26/2021 at 2100 simvastatin (Zocor) 10 mg tablet Take 10 mg by mouth at bedtime. 12/26/2021 at 2100 sucralfate (Carafate) 1 gram tablet Take 1 g by mouth before breakfast and before evening meal. 12/26/2021 tamsulosin (Flomax) 0.4 mg 24 hr capsule Take 0.4 mg by mouth in the morning. 12/27/2021 at 0530 testosterone cypionate (Depo-Testosterone) 100 mg/mL injection testosterone cypionate 100 mg/mL intramuscular oil INJECT 1.5 ML INTO THE MUSCLE EVERY 2 WEEKS DIRECTED Past Week testosterone cypionate (Depo-Testosterone) 200 mg/mL injection testosterone cypionate 200 mg/mL intramuscular oil administer 3/4 mL INTRAMUSCULARLY EVERY 2 (TWO) weeks Past Week tizanidine HCl (ZANAFLEX ORAL) Take 4 mg by mouth at bedtime. 12/26/2021 at 2200 traZODone (Desyrel) 50 mg tablet Take 50 mg by mouth at bedtime. 12/26/2021 at 2130 LORazepam (Ativan) 1 mg tablet Take 1 mg by mouth every 6 (six) hours if needed for anxiety. More than a month Active Hospital Medications Medication Dose Route Frequency Last Admin [START ON 12/28/2021] apixaban 2.5 mg oral BID [START ON 12/28/2021] bumetanide 1 mg oral Daily bupivacaine-epinephrin e ceFAZolin 3 g intravenous q8h docusate sodium 100 mg oral BID doxazosin 4 mg oral Daily famotidine 20 mg oral Daily fentaNYL 25 mcg intravenous q10 min PRN fentaNYL 50 mcg intravenous q10 min PRN ferrous sulfate 325 mg oral BID with meals HYDROcodone-acetaminop hen 1 tablet oral q4h PRN HYDROcodone-acetaminop hen 2 tablet oral q4h PRN HYDROmorphone 0.3 mg intravenous q15 min PRN HYDROmorphone 0.4 mg intravenous q15 min PRN 0.4 mg at 12/27/21 1300 lidocaine ondansetron ODT 4 mg oral q8h PRN Or ondansetron 4 mg intravenous q6h PRN Oxygen Therapy inhalation Continuous PRN Oxygen Therapy 1 each inhalation Continuous PRN (more content not included)... Normal [facility] FUNGAL CULTUREon 12-27-2021 FUNGAL SMEAR No fungal elements seen Normal [facility] Comment on above: Order Comment: Pre-o p diagnosis:Chronic instability of right knee [M23.51]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, initial encounter ([facility]) [T84.032A]Quadriceps weakness [M62.81]Lumbosacral radiculopathy [M54.17] Performed By: #### L [id number] #### [facility] [address] [place] [address] FUNGAL SMEAR No fungal elements seen Normal [facility] Comment on above: Order Comment: Pre-o p diagnosis:Chronic instability of right knee [M23.51]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, initial encounter ([facility]) [T84.032A]Quadriceps weakness [M62.81]Lumbosacral radiculopathy [M54.17] Performed By: #### L [id number] #### [facility]) [address] [place] [address] FUNGAL SMEAR No fungal elements seen Normal [facility] Comment on above: Order Comment: Pre-o p diagnosis:Chronic instability of right knee [M23.51]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, initial encounter ([facility]) [T84.032A]Quadriceps weakness [M62.81]Lumbosacral radiculopathy [M54.17] Performed By: #### L [id number] #### [facility] ([facility]) [address] [place] [address] HISTOLOGY - TISSUE EXAMon LAB AP CASE REPORT Normal [facility] Comment on above: Order Comment: Pre-o p diagnosis:Chronic instability of right knee [M23.51]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, initial encounter ([facility]) [T84.032A]Quadriceps weakness [M62.81]Lumbosacral radiculopathy [M54.17] Result Comment: Surg ical Pathology Case: [id number] Authorizing Provider: Payton Helm MD Collected: 12/27/202118 Ordering Location: [facility] Main Operating Room Received: 12/27/2021 0952 Pathologist: Pricilla Fernando MD Intraop: Luis Juares MD Specimens: A) - Knee, RIGHT KNEE SYNOVIUM B) - Tibia, RIGHT TIBIA C) - Femur, RIGHT FEMUR D) - Patella, RIGHT PATELLA E) - Knee, RIGHT KNEE POSTERIOR CAPSULE Performed By: #### L [id number] #### [facility] ([facility]) [address] [place] [address] LAB AP CLINICAL INFORMATION Normal [facility] Comment on above: Order Comment: Pre-o p diagnosis:Chronic instability of right knee [M23.51]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, initial encounter ([facility]) [T84.032A]Quadriceps weakness [M62.81]Lumbosacral radiculopathy [M54.17] Result Comment: Pre- op diagnosis: Chronic instability of right knee [M23.51] 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, initial encounter ([facility]) [T84.032A] Quadriceps weakness [M62.81] Lumbosacral radiculopathy [M54.17] Performed By: #### L [id number] #### [facility] ([facility]) [address] [place] [address] LAB AP GROSS DESCRIPTION A. Knee. Normal [facility] Comment on above: Order Comment: Pre-o p diagnosis:Chronic instability of right knee [M23.51]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, initial encounter ([facility]) [T84.032A]Quadriceps weakness [M62.81]Lumbosacral radiculopathy [M54.17] Result Comment: Part A is received fresh for intraoperative consultation, labeled right knee synovium. It consists of a 4.2 x 3.5 x 1.5 cm unoriented, bundy-pink, rubbery, irregular piece of soft tissue. One side of the tissue is smooth and glistening. The opposing surface is roughened. The specimen is serially sectioned to reveal bundy-pink and bundy-white, rubbery cut surfaces. Firebreak Cutter sections are submitted for frozen section analysis. Firebreak Cutter sections are submitted as follows: A1: Frozen remnant A2-A4: Soft tissue Jacob Mc' Paper Baler B. Tibia. Part B is received fresh for intraoperative consultation, labeled right tibia. It consists of a 3.0 x 2.5 x 1.2 cm aggregate of bundy-pink, rubbery, irregular soft tissue and possible bone. The specimen is serially sectioned to reveal bundy-pink and bundy-white, rubbery cut surfaces. Firebreak Cutter sections are submitted for frozen section analysis. Firebreak Cutter sections are submitted as follows: B1: Frozen remnant B2-B4: Soft tissue and bone, following decalcification Jacob Mc' Paper Baler C. Femur. Part C is receivedfresh for intraoperative consultation, labeled Sukhdeep F Simental and RIGHT FEMUR. It consists of a 4.0 x 2.6 x 1.4 cm aggregate of bundy-pink, rubbery, irregular soft tissue and possible bone. The specimen is serially sectioned to reveal bundy-pink and bundy-white, rubbery cut surfaces. Firebreak Cutter sections are submitted for frozen section analysis. Firebreak Cutter sections are submitted as follows: C1: Frozen remnant C2-C4: Soft tissue and bone, following decalcification Jacob Mc' Paper Baler D. Patella. Part D is received fresh for intraoperative consultation, labeled right patella. It consists of a 6.4 x 4.6 x 1.3 cm aggregate of bundy-pink, rubbery, irregular soft tissue. The specimen is serially sectioned to reveal bundy-pink and bundy-white, rubbery cut surfaces. Firebreak Cutter sections are submitted for frozen section analysis. Firebreak Cutter sections are submitted as follows: D1: Frozen remnant D2-D4: Soft tissue Guille Sahni Pathologists' Paper Baler E. Knee. Part E is received fresh for intraoperative consultation, labeled right knee posterior capsule. It consists of a 1.6 x 0.8 x 0.5 cm piece of bundy-pink, rubbery, irregular soft tissue. The specimen is serially sectioned to reveal bundy-pink and bundy-white, rubbery cut surfaces. The specimen is entirely submitted for frozen section analysis. The frozen remnant is entirely submitted in 1 cassette. Guille Sahni Pathologists' Paper Baler Performed By: #### L [id number] #### [facility] ([facility]) [address] [place] [address] LAB AP INTRAOPERATIVE CONSULTATION A. Knee. [facility] Comment on above: Order Comment: Pre-o p diagnosis:Chronic instability of right knee [M23.51]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, initial encounter ([facility]) [T84.032A]Quadriceps weakness [M62.81]Lumbosacral radiculopathy [M54.17] Result Comment: Belinda ected 12/27/21 9:18 AM by Payton Helm MD. Negative for significant acute inflammation involving tissue, less than 5 neutrophils/HPF in 5/HPF. B. Tibia. Collected 12/27/21 9:36 AM by Payton Helm MD. >5 neutrophils/HPF in >5HPFs C. Femur. Collected 12/27/21 9:40 AM by Payton Helm MD. >5 neutrophils/HPF in 5 HPFs D. Patella. Collected 12/27/21 9:42 AM by Payton Helm MD. <5 neutrophils/HPF in 5 HPFs E. Knee. Collected 12/27/21 9:43 AM by Payton Helm MD. One field with 6 neutrophils/HPF Performed By: #### L [id number] #### [facility]) [address] [place] [address] LAB AP MICROSCOPIC DESCRIPTION Microscopic examination performed. [facility] Comment on above: Order Comment: Pre-o p diagnosis:Chronic instability of right knee [M23.51]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, initial encounter ([facility]) [T84.032A]Quadriceps weakness [M62.81]Lumbosacral radiculopathy [M54.17] Performed By: #### L [id number] #### [facility]) [address] [place] [address] LAB AP REPORT FINAL DIAGNOSIS NARRATIVE [facility] Comment on above: Order Comment: Pre-o p diagnosis:Chronic instability of right knee [M23.51]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, initial encounter ([facility]) [T84.032A]Quadriceps weakness [M62.81]Lumbosacral radiculopathy [M54.17] Result Comment: A. S oft tissue, right knee synovium, excision: - Necrosis and acute inflammation in fibrous soft tissue B. Soft tissue and bone, tibia, excision: - Minute focus of mild acute osteomyelitis - Necrosis and acute inflammation of soft tissue C. Soft tissue and bone, femur, excision: - Necrosis and acute inflammation in fibroadipose tissue - Reactive bone fragments D. Soft tissue, patella, excision: - Focal acute inflammation in fibrous soft tissue E. Soft tissue, right knee posterior capsule, excision: - Focal necrosis and acute inflammation in fibrous soft tissue Performed By: #### L [id number] #### [facility] [address] [place] [address] HPon 12-27-2021 CLAUDIO Simental is a 56 y.o. male who returns to see me today for a preoperative visit for his right revision knee arthroplasty. he says he has been cleared by his primary care physician. Patient has been initially has been referred by Dr. 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 Patient was recently seen and evaluated in the office with aspiration of his right total knee arthroplasty. He continues to have persistent complaints of painful/unsteady R revision TKA. He underwent revision for infection approximately 6 years ago and reports continued dysfunction of knee. He also reports multiple yearly episodes of lower extremity cellulitis associated with chronic vascular changes in legs for which he has a standing prn antibiotic prescription from his primary care physician. He was seen less than a week ago for aspiration of the knee due to elevated ESR and CRP, which shows elevated WBC count and PMN percentage but cultures without growth to date. He denies any erythema, warmth, or wound complication, denies fevers, chills, rigors, nausea, vomitting. Patient has a complex medical history with morbid obesity along with bilateral knee arthroplasty, previous abdominal plasty, infections around the abdominal pannus, deep vein thrombosis and pulmonary embolus. He reports that he has already begun working with a bariatric surgeon and should be undergoing gastric bypass surgery in the near future. He has been led to believe that this should result in significant weight loss in the next year. 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 . Objective Ht 1.753 m (5' 9 ) Wt 127 kg (280 lb) BMI 41.35 kg/m??? General: alert and oriented, in no acute distress Gait: Antalgic. The patient can bear weight on the injured extremity. Right Lower Extremity Hip Palpation: moderate tenderness over the greater trochanter Hip ROM: 25% of normal Hamstring tightness reveals a popliteal angle to be 15 degrees Knee Effusion: 1+ Ecchymosis: none Knee ROM: -5 to 100 degrees with subpatellar crepitance. Patella: Patella does track normally. Patellar apprehension test: negative Patellar compression test: negative Tenderness: none, medial joint line, lateral joint line, medial facet of the patella, lateral facet of the patella, medial femoral condyle, medial tibial plateau, lateral femoral condyle, lateral tibial plateau, tibial tubercle, and patellar tendon insertion Stability: Delphine's test: positive Posterior drawer: positive Medial collateral ligament: negative Lateral collateral ligament: negative Thelma Test: negative Robe's Test: negative with no joint line tenderness Sensation: deficit noted - around the incision site Pulses: normal DP and PT pulses General Appearance: NAD, morbidly obese Gait and Station Appearance: antalgic gait, waddling gait (Trendelenburg), ambulates with cane Cardiovascular System Arterial Pulses Right: dorsalis pedis diminished (chronic bilateal venous stasis ulcers to mid leg) Edema Right: pretibial 3+ Edema Left: pretibial 3+ Varicosities Right: no varicosities Varicosities Left: no varicosities Knees Inspection Right: no deformity, no mass, no induration, no warmth, no erythema (well healed midline surgical incision) Inspection Left: no deformity, no mass, no induration, no warmth, no erythema Bony Palpation Right: tenderness of the medial joint line, tenderness of the lateral joint line, tenderness of the lateral patellar facet, tenderness of the medial patellar facet, tenderness of the lateral tibial plateau, tenderness of the medial tibial plateau Soft Tissue Palpation Right: no tenderness of the quadriceps tendon, no tenderness of the patellar tendon Active Range of Motion Right: extension normal, flexion (100 deg), pain on initiation of movement Passive Range of Motion RIght: flexion (110 deg.), extension (0 deg.) Stability Right: ligamentous instability medial with valgus stress at 0 deg. grade 2, ligamentous instability medial with varus stress at 0 deg. grade 2, anterior drawer sign positive, Delphine test positive grade 3+ Strength Right: flexion 5/5, extension 5/5 Skin Right Lower Extremity: thin, rash Left Lower Extremity: thin, rash OE : AO X 3, Vitals: stable, R/S: No SOB CVS: No chest pain or palpitations. Right knee joint compared to left side: Incisions have healed well has severe trophic changes bilateral lower extremities along with anterior posterior drawer's test positive, mid flexion instability noted at about 30 and 90 degrees as well, varus valgus instability noted which is globally unstable right knee arthroplasty, tenderness is global around the knee joint, patella tracks normally, mild to moderate effusion noted. No localized redness (more content not included)... 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, initial encounter ([facility]) [T84.032A] * Quadriceps weakness [M62.81] * Lumbosacral radiculopathy [M54.17] Post-op Diagnosis * Chronic instability of right knee [M23.51] * 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, initial encounter ([facility]) [T84.032A] * Quadriceps weakness [M62.81] * Lumbosacral radiculopathy [M54.17] Procedures INFECTED PROSTHETIC, STAGE 1 REVISION AND DEBRIDEMENT, REMOVAL OF HARDWARE ALL COMPONENTS, WASHOUT AND SPACER PLACEMENT 30923 - [place] REVJ TOT KNEE ARTHRP FEM&ENTIRE TIBIAL COMPONE #1 removal of all hardware components secondary to loosening due to periprosthetic joint infection right knee joint #2 debridement subtotal synovectomy, washout of the infected periprosthetic joint infection #3 intraoperative frozen sections to confirm presence of infection, followed by placement of antibiotic impregnated spacer using Biomet implants. #4 superficial and deep complex primary closure of knee arthrotomy for morbidly obese patient. Surgeons * Payton Helm - Primary Paper Baler; Dave Brooke MD resident orthopedic surgery Procedure Summary Anesthesia: General ASA: ASA status not filed in the log. Estimated Blood Loss: 100 mL Total IV Fluids: Please see anesthesia chart mL Drains: * None in log * Specimens ID Source Type Tests Collected By Collected At Frozen? Priority Lab ID 1 Knee Synovial Fluid ANAEROBIC CULTURE FUNGAL CULTURE BODY FLUID CULTURE Payton Helm MD 12/27/21 0946 Routine [id number], [id number], [id number] Description: RIGHT KNEE SYNOVIAL FLUID 2 Femur Tissue ANAEROBIC CULTURE FUNGAL CULTURE TISSUE CULTURE Payton Helm MD 12/27/21 0951 Routine [id number], [id number], [id number] Description: RIGHT FEMUR 3 Tibia Tissue ANAEROBIC CULTURE FUNGAL CULTURE TISSUE CULTURE Payton Helm MD 12/27/21 0953 Routine [id number], [id number], [id number] Description: RIGHT TIBIA 4 Patella Tissue ANAEROBIC CULTURE FUNGAL CULTURE TISSUE CULTURE Payton Helm MD 12/27/21 0954 Routine [id number], [id number], [id number] Description: RIGHT PATELLA A Knee Synovium HISTOLOGY - TISSUE EXAM Payton Helm MD 12/27/21 0918 Yes STAT [id number] Description: RIGHT KNEE SYNOVIUM B Tibia Tissue HISTOLOGY - TISSUE EXAM Payton Helm MD 12/27/21 0936 Yes STAT [id number] Description: RIGHT TIBIA C Femur Tissue HISTOLOGY - TISSUE EXAM Payton Helm MD 12/27/21 0940 Yes STAT [id number] Description: RIGHT FEMUR D Patella Tissue HISTOLOGY - TISSUE EXAM Payton Helm MD 12/27/21 0942 Yes STAT [id number] Description: RIGHT PATELLA E Knee Tissue HISTOLOGY - TISSUE EXAM Payton Helm MD 12/27/21 0943 Yes STAT [id number] Description: RIGHT KNEE POSTERIOR CAPSULE Implants Type Name Action Serial No. Bone Cement CEMENT,BONE,R,1X40US - [id number] Implanted REMEDY TIBIAL INSERT WEDGE Implanted REMEDY STEMMED TIBIAL COMPONENT Implanted REMEDY STEMMED FEMORAL COMPONENT Implanted REMEDY STEM EXTENSION COMPONENT Implanted Staff: Staff Air Tactical Officer: Nathaly Funk RN Relief Scrub: Aline Brooke CST Scrub Person: Yany Chanel CST Satellite Communications Operator: Johnny Scott CSA Orientee Staff Air Tactical Officer: Sonya Noriega Indications: Sukhdeep Simental is an 56 y.o. 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 Procedure Details: The patient was seen in the preoperative area. The risks, benefits, complications, treatment options, non-operative alternatives, expected recovery and outcomes were discussed with the patient. The possibilities of reaction to medication, pulmonary aspiration, injury to surrounding structures, bleeding, recurrent infection, the need for additional procedures, failure to diagnose a condition, and creating a complication requiring transfusion or operation were discussed with the patient. The patient concurred with the proposed plan, giving informed consent. The site of surgery was properly noted/marked if necessary per policy. The patient has been actively warmed in preoperative area. Preoperative antibiotics have been ordered and given within 1 hours of incision. 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 Normal [facility] OPNOTE -- Attestation signed by Payton Helm MD at 12/27/2021 3:36 PM I was present for the entire procedure. 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 Estimated Blood Loss: 100 ml Total IV Fluids: Per anesthesia records Drains: * None in log * Specimens ID Source Type Tests Collected By Collected At Frozen? Priority Lab ID 1 Knee Synovial Fluid ANAEROBIC CULTURE FUNGAL CULTURE BODY FLUID CULTURE Payton Helm MD 12/27/21 0946 Routine [id number], [id number], [id number] Description: RIGHT KNEE SYNOVIAL FLUID 2 Femur Tissue ANAEROBIC CULTURE FUNGAL CULTURE TISSUE CULTURE Payton Helm MD 12/27/21 0951 Routine [id number], [id number], [id number] Description: RIGHT FEMUR 3 Tibia Tissue ANAEROBIC CULTURE FUNGAL CULTURE TISSUE CULTURE Payton Helm MD 12/27/21 0953 Routine [id number], [id number], [id number] Description: RIGHT TIBIA 4 Patella Tissue ANAEROBIC CULTURE FUNGAL CULTURE TISSUE CULTURE Payton Helm MD 12/27/21 0954 Routine [id number], [id number], [id number] Description: RIGHT PATELLA A Knee Synovium HISTOLOGY - TISSUE EXAM Payton Helm MD 12/27/21 0918 Yes STAT [id number] Description: RIGHT KNEE SYNOVIUM B Tibia Tissue HISTOLOGY - TISSUE EXAM Payton Helm MD 12/27/21 0936 Yes STAT [id number] Description: RIGHT TIBIA C Femur Tissue HISTOLOGY - TISSUE EXAM Payton Helm MD 12/27/21 0940 Yes STAT [id number] Description: RIGHT FEMUR D Patella Tissue HISTOLOGY - TISSUE EXAM Payton Helm MD 12/27/21 0942 Yes STAT [id number] Description: RIGHT PATELLA E Knee Tissue HISTOLOGY - TISSUE EXAM Payton Helm MD 12/27/21 0943 Yes STAT [id number] Description: RIGHT KNEE POSTERIOR CAPSULE Implants Type Name Action Serial No. Bone Cement CEMENT,BONE,R,1X40US - [id number] Implanted REMEDY TIBIAL INSERT WEDGE Implanted REMEDY STEMMED TIBIAL COMPONENT Implanted REMEDY STEMMED FEMORAL COMPONENT Implanted REMEDY STEM EXTENSION COMPONENT Implanted Staff: Staff Air Tactical Officer: Nathaly Funk RN Relief Scrub: Aline Brooke CST Scrub Person: Yany Chanel CST Satellite Communications Operator: Johnny Scott CSA Orientee Staff Air Tactical Officer: Sonya Noriega Indications: Sukhdeep Simental is an 56 y.o. 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 Findings: Right femoral and tibial components that are loose. Complications: None; patient tolerated the procedure well. Disposition: PACU - hemodynamically stable. 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, initial encounter ([facility]) [T84.032A] Quadriceps weakness [M62.81] Lumbosacral radiculopathy [M54.17] Collected By: Payton Helm MD 12/27/2021 9:47 AM Release to Patient Immediately BODY FLUID CULTURE Knee Pre-op diagnosis: Chronic instability of right knee [M23.51] 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 Normal [facility] POCT GLUCOSE METER UNSOLICIT ED RESULTSon 12-27-2021 Glucose [Mass/Vol] 275 mg/dL High 70-105 [facility] Comment on above: Result Comment: [email or web address] [email or web address] Performed By: #### L [id number] ####[facility] (BEAKER)[address] [place] [address] Glucose [Mass/Vol] 274 mg/dL High 70-105 [facility] Comment on above: Result Comment: elac umsky Performed By: #### L [id number] ####[facility] ([facility])[address] [place] [address] Glucose [Mass/Vol] 183 mg/dL High 70-105 [facility] Comment on above: Result Comment: emey [email or web address] Performed By: #### L [id number] #### [facility] ([facility]) [address] [place] [address] Glucose [Mass/Vol] 101 mg/dL Normal 70-105 [facility] Comment on above: Result Comment: miwa rd Performed By: #### L [id number] ####[facility] ([facility])[address] [place] [address] TISSUE CULTUREon 12-27-2021 Bacteria identified Cx Nom (Unsp spec) No growth at 5 days Normal [facility] Comment on above: Order Comment: Pre-o p diagnosis:Chronic instability of right knee [M23.51]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, initial encounter ([facility]) [T84.032A]Quadriceps weakness [M62.81]Lumbosacral radiculopathy [M54.17] Performed By: #### L [id number] #### [facility] ([facility]) [address] [place] [address] GRAM STAIN RESULT Normal [facility] Comment on above: Order Comment: Pre-o p diagnosis:Chronic instability of right knee [M23.51]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, initial encounter ([facility]) [T84.032A]Quadriceps weakness [M62.81]Lumbosacral radiculopathy [M54.17] Result Comment: Zero Polymorphonuclear leukocytes No organisms seen Performed By: #### L [id number] #### [facility] ([facility]) [address] [place] [address] Bacteria identified Cx Nom (Unsp spec) No growth at 5 days Normal [facility] Comment on above: Order Comment: Pre-o p diagnosis:Chronic instability of right knee [M23.51]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, initial encounter ([facility]) [T84.032A]Quadriceps weakness [M62.81]Lumbosacral radiculopathy [M54.17] Performed By: #### L [id number] #### [facility] ([facility]) [address] [place] [address] GRAM STAIN RESULT Normal [facility] Comment on above: Order Comment: Pre-o p diagnosis:Chronic instability of right knee [M23.51]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, initial encounter ([facility]) [T84.032A]Quadriceps weakness [M62.81]Lumbosacral radiculopathy [M54.17] Result Comment: Mode rate Polymorphonuclear leukocytes No organisms seen Performed By: #### L [id number] #### [facility] ([facility]) [address] [place] [address] Bacteria identified Cx Nom (Unsp spec) No growth at 5 days Normal [facility] Comment on above: Order Comment: Pre-o p diagnosis:Chronic instability of right knee [M23.51]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, initial encounter ([facility]) [T84.032A]Quadriceps weakness [M62.81]Lumbosacral radiculopathy [M54.17] Performed By: #### L [id number] #### [facility] ([facility]) [address] [place] [address] GRAM STAIN RESULT Normal [facility] Comment on above: Order Comment: Pre-o p diagnosis:Chronic instability of right knee [M23.51]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 Medical C Family History Problem Relation Age of Onset Dementia Mother Esophageal cancer Father Alcohol abuse Father Family Status - Relation Status Age at Mother Alive Father Normal [facility] US KIDNEYSon 12-21-2021 US KIDNEYS EXAMINATION: US KIDNEYS HISTORY: Urgent desire to urinate COMPARISON: No relevant comparison available. TECHNIQUE: Ultrasound examination was performed of the bladder. FINDINGS: Right Kidney: Normal in size, contour and cortical echotexture with no solid mass or hydronephrosis. Multiple echogenic foci the largest measuring up to 1 nonobstructing nephrolithiasis. 3 cm cortical cyst. Cortex measures 1 cm thick Height: 5.4 cm Length: 12.1 cm Width: 5.9 cm Left Kidney: Normal in size, contour and cortical echotexture. 1.7 cm cortical medullary hypoechogenic mass measuring 1.7 x 1.3 x 1.1 cm. No hydronephrosis. Echogenic foci measuring up to 4 mm, nonobstructing nephrolithiasis. The cortex measures 1.5 cm Height: 5.3 cm Length: 11.5 cm Width: 4.9 cm Urinary bladder measures 5.3 x 1.2 x 2.7 with a volume of 12 and L1 IMPRESSION: 1.7 cm hypervascular hypoechoic cortical medullary mass. Consider CT scan without and with contrast for further evaluation Bilateral nonobstructing nephrolithiasis Electronically authenticated by: OBIE TSE Date: 2021-12-21 17:34 Normal [facility] XR ABD FLAT UP_PA Barrett 12-21 XR ABD FLAT UP_PA CH EXAMINATION: XR ABD FLAT UP_PA CH HISTORY: Abdominal pain ; urinary frequency COMPARISON: XR chest 10/31/2021 FINDINGS: LUNGS: No infiltrate, pneumothorax, or pleural effusion. MEDIASTINUM: No abnormal widening. BOWEL GAS PATTERN: Non-obstructed. No abnormal dilation, suspicious fluid levels, or significant stool burden. FREE AIR: None. CALCIFICATIONS: None significant. BONES: Right convex curvature lumbar spine. Posterior mechanical fusion and decompression L4-L5-S1. OTHER: Negative. IMPRESSION: 1. No acute cardiopulmonary process. 2. No acute or suspicious abdominal findings. Evaluation is slightly limited by patient body evidence. Electronically authenticated by: AUSTIN LARIOS Date: 2021-12-21 18:13 Normal [facility] Office Visiton 12-20-2021 Follow-up visit [id number] Sukhdeep Simental 1965 M Date Provider Department Center 12/20/2021 Yulissa-JASON KISER MP ORTHO ESTEBAN Family History Problem Relation Age of Onset Dementia Mother Esophageal cancer Father Alcohol abuse Father Family Status - Relation Status Age at Mother Alive Father Level of Service:48198 [place] OFFICE/OUTPATIENT ESTABLISHED LOW MDM 20-29 MIN (GC) Reason for Visit and Comments: Pain [136] Normal [facility] [id number] 12-19-2021 [id number] NPO after MN Must have a cement mixer driver to take you home and someone to stay for 24 hours after surgery. No jewelry. Hold the meds we spoke about: VITAMINS AND NSAIDS Take the meds we spoke about w/a sip of water DOS: CARDURA, REGLAN, PEPCID FLOMAX Bring insurance card and ID. Normal [facility] Documentationon 12-19-2021 Documentation [id number] Sukhdeep Simental 1965 M Date Provider Department Center 12/19/2021 BLADIMIR ROSE MP Family History Problem Relation Age of Onset Dementia Mother Esophageal cancer Father Alcohol abuse Father Family Status - Relation Status Age at Mother Alive Father Reason for Visit and Comments: pre-op [Other] - Mr Simental called regarding HHC. He would like [place] [facility] to come out for the first 1-2 weeks then would like to go to outpatient therapy at [place]. Normal [facility] Urine culture routineOrdered By: Estephanie Lowry on 12-17-2021 Bacteria identified Cx Nom (U) No Growth 2 Days [facility] Chlamydia trachomatis DNA [P resence] in Specimen by MUKUL with probe detectionOrdered By: Estephanie Lowry on 12-15-2021 C. trachomatis DNA MUKUL+probe Ql (Unsp spec) Negative Negative [facility] Chlamydia/GC/Trich NAAon Chlamydia Trachomotis, MUKUL Negative Normal Negative [facility] Comment on above: Order Comment: Reaso n for Exam Dysuria Performed By: #### G CCHLAMTRI #### [facility] , #### CUU #### [facility] [address] [place] [address] Neisseria Gonorrhoeae, MUKUL Negative Normal Negative [facility] Comment on above: Order Comment: Reaso n for Exam Dysuria Performed By: #### G CCHLAMTRI #### [facility] , #### CUU #### [facility] [address] Trichomonas MUKUL Negative Normal Negative [facility] Comment on above: Order Comment: Reaso n for Exam Dysuria Result Comment: Perf ormed at: =G - [facility] [address] [id number] Order Detailer: Shoshnaa Camargo MD, Phone: [phone] PERFORMED BY: [place] [address] PATHOLOGIST SHIPPING CLERK/ADMIN SABRA SAUNDERS M.D. Performed By: #### G CCHLAMTRI #### [facility] , #### CUU #### [facility] [address] [place] [address] Chlamydia/GC/Trich MUKUL Negative Negative [facility] [employer] Other Neisseria gonorrhoeae DNA [P resence] in Specimen by MUKUL with probe detectionOrdered By: Estephanie Lowry on 12-15-2021 N. gonorrhoeae DNA MUKUL+probe Ql (Unsp spec) Negative Negative [facility] Trichomonas vaginalis DNA [P resence] in Specimen by MUKUL with probe detectionOrdered By: Estephanie Lowry on 12-15-2021 T. vaginalis DNA MUKUL+probe Ql (Unsp spec) Negative Negative [facility] Comment on above: Performed at: =G - [facility] [address] [id number] Director: Shoshana Camargo MD, Phone: [phone] Urinalysis - AUTOMATEDon Appearance (U) clear [employer] Other Bilirubin Ql (U) Negative Impulsiv ast [employer] Other Color (U) orange [facility] [employer] Other Glucose Ql (U) Negative [employer] Other Hemoglobin Ql (U) moderate [facility] [employer] Other Ketones Ql (U) Negative [employer] Other Leukocyte esterase Test strip Ql (U) Negative [employer] Other Nitrite Ql (U) Positive [employer] Other pH (U) 5.5 [pH] [facility] [employer] Other Protein Ql (U) Negative [employer] Other Specific gravity (U) [Rel density] 1.015 [facility] Other Urobilinogen (U) [Mass/Vol] 0.2 mg/dL [facility] Other Urinalysis - AUTOMATED [facility] Other Urine Cultureon 12-15-2021 Bacteria identified Cx Nom (U) Reason for Exam Dysuria Urine No Growth 2 Days PERFORMED BY: [place] [address] PATHOLOGIST SHIPPING CLERK/ADMIN SABRA SAUNDERS M.D. [facility] Comment on above: Performed By: #### G CCHLAMTRI #### [facility] , #### CUU #### [address] Bacteria identified Cx Nom (U) [facility] [employer] Other 36on 12-14-2021 36 I called and spoke t o the patient for discharge planning prior to his joint replacement surgery. The patient would like to discharge to home following his release from the hospital. He has one step to get into his house, and once he is inside everything remains on one floor. He will have support at home. He would like outpatient therapy at [place]. He has a walker, shower chair, and raised toilet seat. Normal [facility] Orders Onlyon 12-14-2021 Orders Only [id number] Sukhdeep Simental 1965 M Date Provider Department Center 12/14/2021 BLADIMIR ROSE MP Family History Problem Relation Age of Onset Dementia Mother Esophageal cancer Father Alcohol abuse Father Family Status - Relation Status Age at Mother Alive Father Normal [facility] Telephoneon 12-14-2021 Telephone [id number] Sukhdeep Simental 1965 M Date Provider Department Center 12/14/2021 BLADIMIR ROSE MP Family History Problem Relation Age of Onset Dementia Mother Esophageal cancer Father Alcohol abuse Father Family Status - Relation Status Age at Mother Alive Father Normal [facility] APTTon 12-01-2021 ACTIVATED PARTIAL THROMBOPLASTIN TIME IN PPP BY COAGULATION ASSAY 28.5 Seconds Normal 25.0-35.0 [facility] Comment on above: Performed By: #### L [id number] ####[facility] (AKER)[address] [place] [address] BASIC METABOLIC PANELon 10 Anion gap [Moles/Vol] 9 mmol/L Normal <=30 [facility] Comment on above: Performed By: #### L [id number] ####[facility] ([facility])[address] [place] [address] Calcium [Mass/Vol] 9.2 mg/dL Normal 8.6-10.3 [facility] Comment on above: Performed By: #### L [id number] ####[facility] ([facility])[address] [place] [address] Chloride [Moles/Vol] 104 mmol/L Normal 98-107 [facility] Comment on above: Performed By: #### L [id number] ####[facility] ([facility])[address] [place] [address] CO2 [Moles/Vol] 29 mmol/L Normal 21-31 [facility] Comment on above: Performed By: #### L [id number] ####[facility] ([facility])[address] [place] [address] Creatinine [Mass/Vol] 1.42 mg/dL High 0.70-1.30 [facility] Comment on above: Performed By: #### L [id number] ####[facility] ([facility])[address] [place] [address] GLOMERULAR FILTRATION RATE ML/MIN/1.73 SQ M.PREDICTED 54.1 mL/min/1.73m*2 Low >60.0 [facility] Comment on above: Result Comment: [facility]???s estimated glomerular filtration rate (eGFR) will no longer include consideration of race in its calculation. The National Kidney Foundation???s eGFR Task Force developed new recommendations for the estimation of the glomerular filtration rate in the [place] They recommend immediate implementation of the new equation refit without the race variable in all laboratories because the calculation does not include race. In addition to not including race in the calculation and reporting, it included diversity in its development, and has acceptable performance characteristics and potential consequences that do not disproportionately affect any one group of individuals. Performed By: #### L [id number] ####[facility] ([facility])[address] [place] [address] Glucose [Mass/Vol] 105 mg/dL High 70-100 [facility] Comment on above: Performed By: #### L [id number] ####[facility] ([facility])[address] [facility] [place] [place] [address] Potassium [Moles/Vol] 4.3 mmol/L Normal 3.5-5.1 [facility] Comment on above: Performed By: #### L [id number] ####[facility] ([facility])[address] [place] [address] Sodium [Moles/Vol] 142 mmol/L Normal 136-145 [facility] Comment on above: Performed By: #### L [id number] ####[facility] (BEAKER)[address] [place] [address] Urea nitrogen [Mass/Vol] 16 mg/dL Normal 7-25 [facility] Comment on above: Performed By: #### L [id number] ####[facility] ([facility])[address] [place] [address] UREA NITROGEN/CREATININE (MASS RATIO) IN SER/PLAS 11.27 Normal [facility] Comment on above: Performed By: #### L [id number] ####[facility] ([facility])[address] [place] [address] CBC WITH AUTO DIFFERENTIALon 12-01-2021 Basophils (Bld) [#/Vol] 0.02 10*3/uL Normal 0.00-0.20 [facility] Comment on above: Performed By: #### L [id number] ####[facility] ([facility])[address] [place] [address] Basophils/100 WBC (Bld) 0.4 % Normal 0.0-1.0 [facility] Comment on above: Performed By: #### L [id number] ####[facility] ([facility])[address] [place] [address] Eosinophils (Bld) [#/Vol] 0.08 10*3/uL Normal 0.00-0.50 [facility] Comment on above: Performed By: #### L [id number] ####[facility] ([facility])[address] [place] [address] Eosinophils/100 WBC (Bld) 1.5 % Normal 0.0-6.0 [facility] Comment on above: Performed By: #### L [id number] ####[facility] ([facility]ER)[address] [place] [address] ERYTHROCYTE DISTRIBUTION WIDTH (RATIO) STANDARD DEVIATION 44.9 Normal [facility] Comment on above: Performed By: #### L [id number] ####[facility] ([facility]ER)[address] [place] [address] Erythrocyte distribution width (RBC) [Ratio] 13.4 % Normal 11.5-15.0 [facility] Comment on above: Performed By: #### L [id number] ####[facility] ([facility]ER)[address] [place] [address] ERYTHROCYTE MEAN CORPUSCULAR HEMOGLOBIN CONCENTRATION (G/DL) BY AUTOMATED 32.9 g/dL Normal 32.0-35.0 [facility] Comment on above: Performed By: #### L [id number] ####[facility] (BE[facility]ER)[address] [place] [address] Hematocrit (Bld) [Volume fraction] 36.2 % Low 39.0-55.0 [facility] Comment on above: Performed By: #### L [id number] ####[facility] ([facility]ER)[address] [place], [place] [address] Hemoglobin (Bld) [Mass/Vol] 11.9 g/dL Low 13.0-17.0 [facility] Comment on above: Performed By: #### L [id number] ####[facility] (BEAKER)[address] [place] [address] Immature granulocytes (Bld) [#/Vol] 0.01 10*3/uL Normal 0.00-0.20 [facility] Comment on above: Performed By: #### L [id number] ####[facility] (BE[facility]ER)[address] [place] [address] Immature granulocytes/100 WBC (Bld) 0.2 % Normal 0.0-1.0 [facility] Comment on above: Performed By: #### L [id number] ####[facility] ([facility])[address] [place] [address] Lymphocytes (Bld) [#/Vol] 1.05 10*3/uL Low 1.20-4.00 [facility] Comment on above: Performed By: #### L [id number] ####[facility] ([facility])[address] [place] [address] Lymphocytes/100 WBC (Bld) 20.2 % Normal 20.0-45.0 [facility] Comment on above: Performed By: #### L [id number] ####[facility] ([facility])[address] [place] [address] MCH (RBC) [Entitic mass] 30.5 pg Normal 27.0-33.0 [facility] Comment on above: Performed By: #### L [id number] ####[facility] ([facility])[address] [place] [address] MCV (RBC) [Entitic vol] 92.8 fL Normal 82.0-98.0 [facility] Comment on above: Performed By: #### L [id number] ####[facility] ([facility])[address] [place] [address] Monocytes (Bld) [#/Vol] 0.64 10*3/uL Normal 0.10-1.00 [facility] Comment on above: Performed By: #### L [id number] ####[facility] ([facility])[address] [place] [address] Monocytes/100 WBC (Bld) 12.3 % High 5.0-12.0 [facility] Comment on above: Performed By: #### L [id number] ####[facility] ([facility])[address] [place] [address] Neutrophils (Bld) [#/Vol] 3.39 10*3/uL Normal 1.60-7.60 [facility] Comment on above: Performed By: #### L [id number] ####[facility] ([facility])[address] [place] [address] Neutrophils/100 WBC (Bld) 65.4 % Normal 40.0-72.0 [facility] Comment on above: Performed By: #### L [id number] ####[facility] ([facility])[address] [place] [address] NRBC (PER 100 WBCS) BY AUTOMATED COUNT 0.0 % Normal 0.0-0.0 [facility] Comment on above: Performed By: #### L [id number] ####[facility] ([facility])[address] [facility] [place] [address] PLATELETS (10*3/UL) IN BLOOD AUTOMATED COUNT 241 10*3/uL Normal 150-400 [facility] Comment on above: Performed By: #### L [id number] ####[facility] ([facility])[address] [place] [address] RBC (Bld) [#/Vol] 3.90 10*6/uL Low 4.20-5.[address] [facility] Comment on above: Performed By: #### L [id number] ####[facility] ([facility])[address] [facility] [place] [address] WBC (Bld) [#/Vol] 5.19 10*3/uL Normal 4.00-10.[address] [facility] Comment on above: Performed By: #### L [id number] ####[facility] ([facility])[address] [place] [address] HEMOGLOBIN A1Con 12-01-2021 Glucose [Mass/Vol] 119.76 mg/dL Normal [facility] Comment on above: Performed By: #### L [id number] ####[facility] ([facility])[address] [place] [address] HbA1c (Bld) [Mass fraction] 5.8 % Normal 4.0-6.0 [facility] Comment on above: Performed By: #### L [id number] ####[facility] ([facility])[address] [place] [address] Hospital Encounteron 022 Hospital Encounter [id number] Sukhdeep Simental 1965 M Date Provider Department Center 12/01/2021 None-None [facility] 6AB SD Medical C Family History Problem Relation Age of Onset Dementia Mother Esophageal cancer Father Alcohol abuse Father Family Status - Relation Status Age at Mother Alive Father Normal [facility] MRSA/MSSA DNA NASALon 2021 MRSA DNA Negative Normal Negative, Invalid [facility] Comment on above: Performed By: #### L [id number] #### [facility] ([facility]) [address] [place] [address] MSSA DNA Negative Normal Negative, Invalid [facility] Comment on above: Performed By: #### L [id number] #### [facility] ([facility]) [address] [place] [address] Office Visiton 12-01-2021 Follow-up visit [id number] Sukhdeep Simental 1965 M Date Provider Department Center 12/01/2021 PAYTON GRIFFITH MP ORTHO MPORTHO Family History Problem Relation Age of Onset Dementia Mother Esophageal cancer Father Alcohol abuse Father Family Status - Relation Status Age at Mother Alive Father Level of Service:52513 [place] OFFICE/OUTPATIENT ESTABLISHED MOD MDM 30-39 MIN Reason for Visit and Comments: Pain [136] - Kidney function is better per patient. His surgery was canceled do to abnormal lab results. Normal [facility] PROTIME-INRon 12-01-2021 INR IN PPP BY COAGULATION ASSAY 1.17 High 0.90-1.10 [facility] Comment on above: Result Comment: ACCC P RECOMMENDED INR FOR WARFARIN THERAPY CONDITION INR PROPHYLAXIS OF VENOUS THROMBOSIS 2-3 (HIGH-RISK SURGERY) TREATMENT OF VENOUS THROMBOSIS 2-3 TREATMENT OF PULMONARY EMBOLISM 2-3 PREVENTION OF SYSTEMIC EMBOLISM: 2-3 ACUTE MYOCARDIAL INFARCTION TISSUE HEART VALVES VALVULAR HEART DISEASE ATRIAL FIBRILLATION RECURRENT SYSTEMIC EMBOLISM MECHANICAL HEART VALVE 2.5-3.5 FROM: ORAL ANTICOAGULANTS. MECHANISM OF ACTION, CLINICAL EFFECTIVENESS, AND OPTIMAL THERAPEUTIC RANGE. CHEST 1995;108:231S-246S. Performed By: #### L [id number] ####[facility] ([facility])[address] [place] [id number] PROTHROMBIN TIME (PT) IN PPP BY COAGULATION ASSAY 14.8 Seconds Normal 12.3-14.8 [facility] Comment on above: Performed By: #### L [id number] ####[facility] ([place])[address] [place] [address] SARS-COV-2 IGG, QUALITATIVEo n 12-01-2021 COVID-19 IGG ANTIBODY Negative Normal Negative [facility] Comment on above: Result Comment: Nega tive results do not rule out SARS-CoV-2 infection, particularly in those who have been in contact with the virus. Follow-up testing with a molecular diagnostic test should be considered to rule out infection in these individuals. Results from antibody testing should not be used as the sole basis to diagnose or exclude SARS-CoV-2 infection or to inform infection status. INTERPRETIVE INFORMATION: COVID-19 IgG, Qualitative by PAULA The COVID-19 IgG, Qualitative by PAULA test is for in vitro diagnostic use under an FDA Emergency Use Authorization (EUA). In compliance with this authorization, please visit [email or web address] for more information and to access the applicable information sheets. This test should not be used for screening of donated blood. Use for the qualitative detection of IgG antibodies against the nucleocapsid protein of SARS-CoV-2 (COVID-19) that develop in response to natural infection with SARS-CoV-2. These antibodies do not develop as a result of a COVID-19 vaccination. There are no current recommendations for assessing COVID-19 vaccine response. Performed by [employer], [address], [place] [id number] [email or web address], Jean-Pierre Garnica MD, PHD, Lab. Director Performed By: #### L [id number] ####[email or web address] ([place])[address] [place] [address] TYPE AND SCREENon 12-01-2021 AB SCREEN Negative Normal [facility] Comment on above: Performed By: #### L [id number] ####[facility], ABO group Nom (Bld) A Normal [facility] Comment on above: Performed By: #### L [id number] ####[facility], RH TYPE IN BLOOD Negative Normal [facility] Comment on above: Performed By: #### L [id number] ####[facility], URINALYSISon 12-01-2021 BILIRUBIN, TOTAL PRESENCE IN URINE Negative Normal Negative [facility] Comment on above: Order Comment: 0000 Performed By: #### L [id number] ####[facility] ([place])[address] [place] [address] Clarity (U) Clear Normal Clear [facility] Comment on above: Order Comment: 0000 Performed By: #### L [id number] ####[facility] ([place])[address] [place] [address] Color (U) Yellow Normal Yellow, Dark Yellow, Straw [facility] Comment on above: Order Comment: 0000 Performed By: #### L [id number] ####[facility] ([facility])[address] [place] [address] Glucose (U) [Mass/Vol] Negative Normal Negative [facility] Comment on above: Order Comment: 0000 Performed By: #### L [id number] ####[facility] ([facility])[address] [place] [address] HEMOGLOBIN PRESENCE IN URINE Large Abnormal Negative [facility] Comment on above: Order Comment: 0000 Performed By: #### L [id number] ####[facility] ([facility])[address] [place] [address] Ketones Ql (U) Negative Normal Negative [facility] Comment on above: Order Comment: 0000 Performed By: #### L [id number] ####[facility] ([facility])[address] [place] [address] LEUKOCYTE ESTERASE PRESENCE IN URINE BY TEST STRIP Negative Normal Negative [facility] Comment on above: Order Comment: 0000 Performed By: #### L [id number] ####[facility] ([facility])[address] [place] [address] NITRITE PRESENCE IN URINE Negative Normal Negative [facility] Comment on above: Order Comment: 0000 Performed By: #### L [id number] ####[facility] ([facility])[address] [place] [address] pH (U) 7.5 [pH] Normal 5.0-8.0 [facility] Comment on above: Order Comment: 0000 Performed By: #### L [id number] ####[facility] ([facility])[address] [place] [address] Protein (U) [Mass/Vol] Negative Normal Negative [facility] Comment on above: Order Comment: 0000 Performed By: #### L [id number] ####[facility] ([facility])[address] [place] [address] Specific gravity (U) [Rel density] 1.025 High 1.015-1.020 [facility] Comment on above: Order Comment: 0000 Performed By: #### L [id number] ####[facility] ([facility])[address] [place] [address] UROBILINOGEN (EU/DL) IN URINE 0.2 EU/dL Normal Negative [facility] Comment on above: Order Comment: 0000 Performed By: #### L [id number] ####[facility] ([facility])[address] [place] [address] URINALYSIS MICROSCOPICon CASTS IN URINE Present Abnormal None Seen [facility] Comment on above: Performed By: #### L [id number] #### [facility] ([facility]) [address] [place] [address] CRYSTALS IN URINE Normal Univers [facility] Comment on above: Performed By: #### L [id number] #### [facility] ([facility]) [address] [place] [address] HYALINE CASTS /LPF IN URINE SEDIMENT BY MICROSCOPY 4 /LPF High <1 [facility] Comment on above: Performed By: #### L [id number] #### [facility] ([facility]) [address] [place] [address] MUCUS (#/HPF) IN URINE SEDIMENT Occasional Normal None Seen, Occasional, Few [facility] Comment on above: Performed By: #### L [id number] #### [facility] ([facility]) [address] [place] [address] RBC (#/HPF) IN URINE SEDIMENT 51-100 Abnormal None Seen [facility] Comment on above: Performed By: #### L [id number] #### [facility] ([facility]) [address] [place] [address] SQUAMOUS EPITHELIAL CELLS (#/HPF) IN URINE SEDIMENT Few Abnormal None Seen, Occasional [facility] Comment on above: Performed By: #### L [id number] #### [facility] ([facility]) [address] [place] [address] WBC (LEUKOCYTE) (#/HPF) IN URINE SEDIMENT 0-2 Abnormal None Seen [facility] Comment on above: Performed By: #### L [id number] #### [facility] ([facility]) [address] [place] [address] CULTURE URINEon 11-24-2021 CULTURE URINE Culture Observations : NO GROWTH. Normal [facility] Comment on above: Performed By: #### B MP #### [facility] [address] [place] [address] Dr. Hugh Landis PROTEIN ELECTROPHERESIS URIN E RANDOMon 11-17-2021 Albumin, U 33.4 % Normal [facility] Comment on above: Performed By: #### C MP, LIPID, TSH #### [facility] [address] [address] [address] Hugh Landis Alpha-1 Globulin U 4.7 % Normal [facility] Comment on above: Performed By: #### C MP, LIPID, TSH #### [facility] [address] [address] [address] Hugh Landis Alpha-2 Glubulin U 18.6 % Normal [facility] Comment on above: Performed By: #### C MP, LIPID, TSH #### [facility] [address] [address] [address] Hugh Landis Beta Globulin, U 19.9 % Normal [facility] Comment on above: Performed By: #### C MP, LIPID, TSH #### [facility] [address] [address] [address] Hugh Landis Gamma Globulin U 23.4 % Normal [facility] Comment on above: Performed By: #### C MP, LIPID, TSH #### [facility] [address] [address] [address] Hugh Landis M-Tariq, % Not Observed Normal Not Observed [facility] Comment on above: Performed By: #### C MP, LIPID, TSH #### [facility] [address] [address] [address] Hugh Landis PDF . Normal [facility] Comment on above: Performed By: #### C MP, LIPID, TSH #### [facility] [address] [place] [address] Dr. Hugh Landis Please note: Comment Normal [facility] Comment on above: Result Comment: Prot ein electrophoresis scan will follow via computer, mail, or diesel motor mechanic delivery. Performed By: #### C MP, LIPID, TSH #### [facility] [address] [address] [address] Hugh Landis Protein (U) [Mass/Vol] 4.9 mg/dL Normal Not Estab. [facility] Comment on above: Performed By: #### C MP, LIPID, TSH #### [facility] [address] [address] [address] Hugh Landis IMMUNOFIXATION(PRINCE),PROTEIN ELEC(PE),FREon 11-16-2021 Albumin [Mass/Vol] 3.4 g/dL Normal 2.9-4.4 [facility] Comment on above: Performed By: #### C MP, LIPID, TSH #### [facility] [address] [address] [address] Hugh Landis Albumin/Globulin [Mass ratio] 1.0 {ratio} Normal 0.7-1.7 [facility] Comment on above: Performed By: #### C MP, LIPID, TSH #### [facility] [address] [address] [address] Hugh Landis Jlalu-5-Ucgnuvyv 0.2 g/dL Normal 0.0-0.4 The [facility] Comment on above: Performed By: #### C MP, LIPID, TSH #### [facility] [address] [address] [address] Hugh Landis Rbxtr-8-Oemmnwhr 1.1 g/dL Critically high 0.4-1.0 [facility] Comment on above: Performed By: #### C MP, LIPID, TSH #### [facility] [address] [address] [address] Hugh Landis Beta Globulin 1.0 g/dL Normal 0.7-1.3 The [facility] Comment on above: Performed By: #### C MP, LIPID, TSH #### [facility] [address] [address] [address] Hugh Landis Free Braidwood Lt Chains,S 35.7 mg/L Critically high 3.3-19.4 [facility] Comment on above: Performed By: #### C MP, LIPID, TSH #### [facility] [address] [address] [address] Hugh Landis Free Lambda Lt Chains,S 21.1 mg/L Normal 5.7-26.3 [facility] Comment on above: Performed By: #### C MP, LIPID, TSH #### [facility] [address] [address] [address] uHgh Landis Gamma Globulin 1.2 g/dL Normal 0.4-1.8 [facility] Comment on above: Performed By: #### C MP, LIPID, TSH #### [facility] [address] [address] [address] Huhg Landis Globulin (S) [Mass/Vol] 3.5 g/dL Normal 2.2-3.9 [facility] Comment on above: Performed By: #### C MP, LIPID, TSH #### [facility] [address] [address] [address] Hugh Landis Immunofixation Result, Serum Comment Normal [facility] Comment on above: Result Comment: No m onoclonality detected. Performed By: #### C MP, LIPID, TSH #### [facility] [address] [address] [address] Hugh Landis Immunoglobulin A, Qn, Serum 228 mg/dL Normal 90-386 [facility] Comment on above: Performed By: #### C MP, LIPID, TSH #### [facility] [address] [address] [address] Hugh Landis Immunoglobulin G, Qn, Serum 1221 mg/dL Normal 603-1613 [facility] Comment on above: Performed By: #### C MP, LIPID, TSH #### [facility] [address] [address] [address] Hugh Landis Immunoglobulin M, Qn, Serum 79 mg/dL Normal 20-172 [facility] Comment on above: Performed By: #### C MP, LIPID, TSH #### [facility] [address] [address] [address] Hugh Landis Braidwood/Lambda Ratio, S 1.69 Critically high 0.26-1.65 [facility] Comment on above: Performed By: #### C MP, LIPID, TSH #### [facility] [address] [address] [address] Hugh Landis M-Tariq Not Observed Normal Not Observed [facility] Comment on above: Performed By: #### C MP, LIPID, TSH #### [facility] [address] [address] [address] Hugh Landis PDF . Normal [facility] Comment on above: Performed By: #### C MP, LIPID, TSH #### [facility] [address] [address] [address] Hugh Landis Please note: Comment Normal [facility] Comment on above: Result Comment: Prot ein electrophoresis scan will follow via computer, mail, or diesel motor mechanic delivery. Performed By: #### C MP, LIPID, TSH #### [facility] [address] [address] [address] Hugh Landis Protein [Mass/Vol] 6.9 g/dL Normal 6.0-8.5 [facility] Comment on above: Performed By: #### C MP, LIPID, TSH #### [facility] [address] [address] [address] Hugh Landis PROTEIN AND CREA RANDOM UR R ATIOon 11-16-2021 Creatinine, Urine 54.8 mg/dL Normal Not Estab. [facility] Comment on above: Performed By: #### C MP, LIPID, TSH #### [facility] [address] [address] [address] Hugh Landis Protein (U) [Mass/Vol] 4.1 mg/dL Normal Not Estab. [facility] Comment on above: Performed By: #### C MP, LIPID, TSH #### [facility] [address] [place] [address] Dr. Hugh Landis Protein/Creat Ratio 75 mg/g creat Normal 0-200 [facility] Comment on above: Performed By: #### C MP, LIPID, TSH #### [facility] [address] [place] [address] Dr. Hugh Landis PTH INTACTon 11-15-2021 PTH, Intact 39 pg/mL Normal 15-65 [facility] Comment on above: Performed By: #### P T #### [facility] [address] [place] [address] Dr. Hugh Landis UA RANDOM W/MICROSCOPICon BACTERIA NONE SEEN Normal NONE SEEN [facility] Comment on above: Performed By: #### P TT #### [facility] [address] [address] [address] Hugh Landis Bilirubin Ql (U) Negative Normal NEGATIVE [facility] Comment on above: Performed By: #### P TT #### [facility] [address] [place] [address] Dr. Hugh Landis CAST NONE SEEN Normal NONE SEEN [facility] Comment on above: Performed By: #### P TT #### [facility] [address] [place] [address] Dr. Hugh Landis Clarity (U) CLEAR Normal CLEAR [facility] Comment on above: Performed By: #### P TT #### [facility] [address] [address] [address] Hugh Landis Color (U) LT. YELLOW Normal YELLOW [facility] Comment on above: Performed By: #### P TT #### [facility] [address] [place] [address] Dr. Hugh Landis Crystals LM Nom (Urine sed) NONE SEEN Normal NONE SEEN [facility] Comment on above: Performed By: #### P TT #### [facility] [address] [place] [address] Dr. Hugh Landis Epithelial cells LM Ql (Urine sed) NONE SEEN Normal NONE SEEN /RARE [facility] Comment on above: Performed By: #### P TT #### [facility] [address] [place] [address] Dr. Hugh Landis Glucose Ql (U) Negative Normal NEGATIVE [facility] Comment on above: Performed By: #### P TT #### [facility] [address] [place] [address] Dr. Hugh Landis Hemoglobin Ql (U) MODERATE Abnormal NEGATIVE [facility] Comment on above: Performed By: #### P TT #### [facility] [address] [place] [address] Dr. Hugh Landis Ketones Ql (U) Negative Normal NEGATIVE [facility] Comment on above: Performed By: #### P TT #### [facility] [address] [place] [address] Dr. Hugh Landis LEUKOCYTES Negative Normal NEGATIVE [facility] Comment on above: Performed By: #### P TT #### [facility] [address] [place] [address] Dr. Hugh Landis MUCOUS NONE SEEN Normal NONE SEEN [facility] Comment on above: Performed By: #### P TT #### [facility] [address] [place] [address] Dr. Hugh Landis Nitrite Ql (U) Negative Normal NEGATIVE [facility] Comment on above: Performed By: #### P TT #### [facility] [address] [place] [address] Dr. Hugh Landis pH (U) 5.5 [pH] Normal 5-9 [facility] Comment on above: Performed By: #### P TT #### [facility] [address] [address] [address] Hugh Landis RBC 5-10 Abnormal 0-2 [facility] Comment on above: Performed By: #### P TT #### [facility] [address] [place] [address] Dr. Hugh Landis SPEC GRAVITY 1.010 Normal 1.005-<=1.025 [facility] Comment on above: Performed By: #### P TT #### [facility] [address] [place] [address] Dr. Hugh Landis UA PROTEIN Negative Normal NEGATIVE/ TRACE [facility] Comment on above: Performed By: #### P TT #### [facility] [address] [place] [address] Dr. Hugh Landis Urobilinogen Qn (U) 0.2 {Dahiana'U}/dL Normal 0.2 - 1. 0 [facility] Comment on above: Performed By: #### P TT #### [facility] [address] [place] [address] Dr. Hugh Landis WBC 0-2 Abnormal NONE SEEN [facility] Comment on above: Performed By: #### P TT #### [facility] [address] [place] [address] Dr. Hugh Landis URINE T PROTEIN CREAT RATIOo n 11-15-2021 Protein (U) [Mass/Vol] 10.0 mg/dL Normal <=12.0 [facility] Comment on above: Performed By: #### B MP #### [facility] [address] [place] [address] Dr. Hugh Landis UR PROT CREAT RAT 0.18 Normal [facility] Comment on above: Performed By: #### B MP #### [facility] [address] [place] [address] Dr. Hugh Landis URINE CREAT 57.11 mg/dL Normal 20.00-300.00 [facility] Comment on above: Performed By: #### B MP #### [facility] [address] [address] [address] Hugh Landis FERRITINon 11-14-2021 Ferritin [Mass/Vol] 95.0 ng/mL Normal 26.0-388.0 [facility] Comment on above: Performed By: #### C MP, LIPID, TSH #### [facility] [address] [place] [address] Dr. Hugh Landis HEMOGRAM AND PLATELon 2021 Hematocrit (Bld) [Volume fraction] 35.7 % Critically low 42.0-54.0 [facility] Comment on above: Performed By: #### U TOMAS, TSH, CMP, LIPID, T7 #### [facility] [address] [place] [address] Dr. Hugh Landis Hemoglobin (Bld) [Mass/Vol] 11.5 g/dL Critically low 14.0-18.0 [facility] Comment on above: Performed By: #### U TOMAS, TSH, CMP, LIPID, T7 #### [facility] [address] [place] [address] Dr. Hugh Landis MCH (RBC) [Entitic mass] 30.3 pg Normal 25.9-34.0 [facility] Comment on above: Performed By: #### U TOMAS, TSH, CMP, LIPID, T7 #### [facility] [address] [place] [address] Dr. Hugh Landis MCHC (RBC) [Mass/Vol] 32.2 g/dL Normal 29.9-35.2 [facility] Comment on above: Performed By: #### U TOMAS, TSH, CMP, LIPID, T7 #### [facility] [address] [place] [address] Dr. Hugh Landis MCV (RBC) [Entitic vol] 93.9 fL Normal 80.0-94.0 [facility] Comment on above: Performed By: #### U TOMAS, TSH, CMP, LIPID, T7 #### [facility] [address] [place] [address] Dr. Hugh Landis PLT 254 103/ul Normal 150-450 [facility] Comment on above: Performed By: #### U TOMAS, TSH, CMP, LIPID, T7 #### [facility] [address] [address] [address] Hugh Landis RBC 3.80 106/ul Critically low 4.70-6.10 [facility] Comment on above: Performed By: #### U TOMAS, TSH, CMP, LIPID, T7 #### [facility] [address] [place] [address] Dr. Hugh Landis WBC 6.4 103/ul Normal 4.0-11.0 [facility] Comment on above: Performed By: #### U TOMAS, TSH, CMP, LIPID, T7 #### [facility] [address] [place] [address] Dr. Hugh Landis IRON AND TIBCon 11-14-2021 % SATURATION 27.6 % Normal [facility] Comment on above: Performed By: #### C MP, LIPID, TSH #### [facility] [address] [place] [address] Dr. Hugh Landis Iron [Mass/Vol] 68.0 ug/dL Normal 65.0-175.0 [facility] Comment on above: Performed By: #### C MP, LIPID, TSH #### [facility] [address] [place] [address] Dr. Hugh Landis TIBC DIRECT 246.0 ug/dL Critically low 250.0-450.0 [facility] Comment on above: Performed By: #### C MP, LIPID, TSH #### [facility] [address] [place] [address] Dr. Hugh Landis MAGNESIUMon 11-14-2021 Magnesium [Mass/Vol] 1.8 mg/dL Normal 1.8-2.4 [facility] Comment on above: Performed By: #### U TOMAS, TSH, CMP, LIPID, T7 #### [facility] [address] [place] [address] Dr. Hugh Landis RENAL FUNCTION PANELon 11-14 Albumin [Mass/Vol] 3.4 g/dL Normal 3.4-5.0 [facility] Comment on above: Performed By: #### U TOMAS, TSH, CMP, LIPID, T7 #### [facility] [address] [address] [address] Hugh Landis Calcium [Mass/Vol] 9.1 mg/dL Normal 8.5-10.1 [facility] Comment on above: Performed By: #### U TOMAS, TSH, CMP, LIPID, T7 #### [facility] [address] [address] [address] Hugh Landis Chloride [Moles/Vol] 105 mmol/L Normal 98-107 [facility] Comment on above: Performed By: #### U TOMAS, TSH, CMP, LIPID, T7 #### [facility] [address] [address] [address] Hugh Landis CO2 [Moles/Vol] 29.2 mmol/L Normal 21.0-32.[address] [facility] Comment on above: Performed By: #### U TOMAS, TSH, CMP, LIPID, T7 #### [facility] [address] [address] [address] Hugh Landis Creatinine [Mass/Vol] 1.62 mg/dL Critically high 0.70-1.30 [facility] Comment on above: Performed By: #### U TOMAS, TSH, CMP, LIPID, T7 #### [facility] [address] [place] [address] Dr. Hugh Landis EGFR-AF GUAMANIAN 53 mL/min/1.73m2 Critically low >=60 [facility] Comment on above: Performed By: #### U TOMAS, TSH, CMP, LIPID, T7 #### [facility] [address] [address] [address] Hugh Landis EGFR-NON AF GUAMANIAN 44 mL/min/1.73m2 Critically low >=60 [facility] Comment on above: Performed By: #### U TOMAS, TSH, CMP, LIPID, T7 #### [facility] [address] [place] [address] Dr. Hugh Landis Glucose [Mass/Vol] 136 mg/dL Critically high 74-106 [facility] Comment on above: Performed By: #### U TOMAS, TSH, CMP, LIPID, T7 #### [facility] [address] [address] [address] Hugh Landis Phosphate [Mass/Vol] 2.8 mg/dL Normal 2.6-4.7 [facility] Comment on above: Performed By: #### U TOMAS, TSH, CMP, LIPID, T7 #### [facility] [address] [address] [address] Hugh Landis Potassium [Moles/Vol] 3.1 mmol/L Critically low 3.5-5.1 [facility] Comment on above: Performed By: #### U TOMAS, TSH, CMP, LIPID, T7 #### [facility] [address] [address] [address] Hugh Landis Sodium [Moles/Vol] 141 mmol/L Normal 136-145 [facility] Comment on above: Performed By: #### U TOMAS, TSH, CMP, LIPID, T7 #### [facility] [address] [place] [address] Dr. Hugh Landis Urea nitrogen [Mass/Vol] 19.0 mg/dL Critically high 7.0-18.0 [facility] Comment on above: Performed By: #### U TOMAS, TSH, CMP, LIPID, T7 #### [facility] [address] [place] [address] Dr. Hugh Landis URIC ACID SERUMon 11-14-2021 Urate [Mass/Vol] 8.7 mg/dL Critically high 3.5-7.2 [facility] Comment on above: Performed By: #### U TOMAS, TSH, CMP, LIPID, T7 #### [facility] [address] [place] [address] Dr. Hugh Landis VIT B12 AND FOLATEon 022 Cobalamin (Vitamin B12) [Mass/Vol] 373.0 pg/mL Normal 193.0-986.0 [facility] Comment on above: Performed By: #### U TOMAS, TSH, CMP, LIPID, T7 #### [facility] [address] [place] [address] Dr. Hugh Landis FOLATE 14.00 ng/mL Normal 8.60-58.90 [facility] Comment on above: Performed By: #### U TOMAS, TSH, CMP, LIPID, T7 #### [facility] [address] [place], [place] [address] Dr. Hugh Landis VITAMIN D 25 OHon 11-14-2021 VIT D 25-OH 33.8 ng/mL Normal [facility] Comment on above: Performed By: #### U TOMAS, TSH, CMP, LIPID, T7 #### [facility] [address] [place], [place] [address] Dr. Hugh Landis VIT D RANGES SEE BELOW Normal [facility] Comment on above: Result Comment: <20 ng/mL Vit D deficient 20 - <30 ng/mL Vit D insufficient 30 - 100 ng/mL Vit D sufficient >100 ng/mL Potential Toxicity Performed By: #### U TOMAS, TSH, CMP, LIPID, T7 #### [facility] [address] [place], [place] [address] Dr. Hugh Landis US KIDNEYS BLADDERon 022 US KIDNEYS BLADDER EXAMINATION: US KIDNEYS BLADDER HISTORY: Unspecified abnormal finding in specimens from other organs, systems and tissues COMPARISON: CT abdomen pelvis 06/26/2021 TECHNIQUE: Ultrasound examination was performed of the kidneys and urinary bladder. FINDINGS: RIGHT KIDNEY: Contains a few nonobstructing stones in a 2.6 cm benign-appearing cyst. Mild cortical thinning. No evidence of pelvocaliectasis, mass, or calculi. Normal renal cortical parenchymal echogenicity. Color Doppler demonstrates blood flow within the kidney. Kidney: 11.1 x 6.4 x 6.4 cm LEFT KIDNEY: No evidence of pelvocaliectasis, mass, or calculi. Normal renal cortical parenchymal echogenicity. Color Doppler demonstrates blood flow within the kidney. Kidney: 11.3 x 5.2 x 5.3 cm BLADDER: No visible wall thickening, mass, or calculi. Post void residual: 4 mL URETERAL JETS: Visualized bilaterally. IMPRESSION: 1. Nonobstructing right nephrolithiasis. Electronically authenticated by: AUSTIN LARIOS Date: 2021-11-01 16:44 Normal [facility] XR CHEST 2 Von 11-01-2021 XR CHEST 2 V EXAMINATION: XR CHES T 2 V HISTORY: Dyspnea COMPARISON: 07/15/2021 TECHNIQUE: PA and lateral FINDINGS: LUNGS: No significant pulmonary parenchymal abnormalities. VASCULATURE: No increased pulmonary vasculature. PLEURA: No pneumothorax, effusion, or pleural thickening. CARDIAC: No cardiomegaly or cardiac silhouette abnormality. MEDIASTINUM: No visible mass or adenopathy. BONES: No fracture or visible bone lesion. OTHER: Negative. IMPRESSION: No acute disease. Electronically authenticated by: OBIE TSE Date: 2021-11-01 06:51 Normal [facility] NM LUNG VENT_PERFon 11-01-19 22 NM LUNG VENT_PERF EXAM: NM LUNG VENT_PERF HISTORY: Dyspnea COMPARISON: Chest x-ray 10/31/2021 TECHNIQUE: 6.1 mCi technetium MAA. 24.9 mCi technetium DTPA. FINDINGS: Perfusion images demonstrate no segmental perfusion defects to suggest acute pulmonary embolism Ventilation images are normal without ventilation defects. IMPRESSION: Normal ventilation/perfusion scan Electronically authenticated by: BARBARA SCHRADER Date: 2021-10-31 12:35 Normal [facility] PROF CHEM 8 (BAS METB)on Anion gap [Moles/Vol] 17.5 mmol/L Normal [facility] Comment on above: Performed By: #### B MP #### [facility] [address] [place] [address] [address] Hugh Landis Calcium [Mass/Vol] 9.4 mg/dL Normal 8.5-10.1 [facility] Comment on above: Performed By: #### B MP #### [facility] [address] [place] [address] Dr. Hugh Landis Chloride [Moles/Vol] 100 mmol/L Normal 98-107 [facility] Comment on above: Performed By: #### B MP #### [facility] [address] [place] [address] [address] Hugh Landis CO2 [Moles/Vol] 22.8 mmol/L Normal 21.0-32.0 [facility] Comment on above: Performed By: #### B MP #### [facility] [address] [place] [address] [address] Hugh Landis Creatinine [Mass/Vol] 2.69 mg/dL Critically high 0.70-1.30 [facility] Comment on above: Performed By: #### B MP #### [facility] [address] [place] [address] [address] Hugh Landis EGFR-AF GUAMANIAN 30 mL/min/1.73m2 Critically low >=60 [facility] Comment on above: Performed By: #### B MP #### [facility] [address] [place] [address] [address] Hugh Landis EGFR-NON AF GUAMANIAN 24 mL/min/1.73m2 Critically low >=60 [facility] Comment on above: Performed By: #### B MP #### [facility] [address] [place] [address] [address] Hugh Landis Glucose [Mass/Vol] 117 mg/dL Critically high 74-106 [facility] Comment on above: Performed By: #### B MP #### [facility] [address] [place] [address] [address] Hugh Landis Potassium [Moles/Vol] 4.3 mmol/L Normal 3.5-5.1 [facility] Comment on above: Performed By: #### B MP #### [facility] [address] [place] [address] [address] Hugh Landis Sodium [Moles/Vol] 136 mmol/L Normal 136-145 [facility] Comment on above: Performed By: #### B MP #### [facility] [address] [place] [address] [address] Hugh Landis Urea nitrogen [Mass/Vol] 41.0 mg/dL Critically high 7.0-18.0 [facility] Comment on above: Performed By: #### B MP #### [facility] [address] [place] [address] [address] Hugh Landis Urea nitrogen/Creatinine [Mass ratio] 15.2 mg/mg Normal [facility] Comment on above: Performed By: #### B MP #### [facility] [address] [place] [address] [address] Hugh Landis CBC AUTO DIFFon 10-16-2021 BASO # 0.0 103/ul Normal 0.0-0.1 [facility] Comment on above: Performed By: #### P T #### [facility] [address] [place] [address] [address] Hugh Landis Basophils/100 WBC (Bld) 0.6 % Normal 0.2-2.0 [facility] Comment on above: Performed By: #### P T #### [facility] [address] [place] [address] Dr. Hugh Landis EO # 0.2 103/ul Normal 0.0-0.7 [facility] Comment on above: Performed By: #### P T #### [facility] [address] [place] [address] Dr. Hugh Landis Eosinophils/100 WBC (Bld) 2.3 % Normal 0.9-7.0 [facility] Comment on above: Performed By: #### P T #### [facility] [address] [place] [address] Dr. Hugh Landis Erythrocyte distribution width (RBC) [Ratio] 12.7 % Normal 11.0-15.0 [facility] Comment on above: Performed By: #### P T #### [facility] [address] [place] [address] Dr. Hugh Landis Hematocrit (Bld) [Volume fraction] 36.2 % Critically low 42.0-54.0 [facility] Comment on above: Performed By: #### P T #### [facility] [address] [place] [address] Dr. Hugh Landis Hemoglobin (Bld) [Mass/Vol] 11.5 g/dL Critically low 14.0-18.0 [facility] Comment on above: Performed By: #### P T #### [facility] [address] [place] [address] Dr. Hugh Landis IG # 0.02 10e3/ul Normal 0.00-0.03 [facility] Comment on above: Performed By: #### P T #### [facility] [address] [place] [address] Dr. Hugh Landis IG % 0.3 % Normal 0.0-0.5 [facility] Comment on above: Performed By: #### P T #### [facility] [address] [place] [address] Dr. Hugh Landis LYMPH # 1.4 103/ul Normal 1.2-3.8 [facility] Comment on above: Performed By: #### P T #### [facility] [address] [place] [address] Dr. Hugh Landis Lymphocytes/100 WBC (Bld) 21.3 % Normal 20.5-60.0 [facility] Comment on above: Performed By: #### P T #### [facility] [address] [place] [address] Dr. Hugh Landis MANUAL DIFF REQ NO Normal [facility] Comment on above: Performed By: #### P T #### [facility] [address] [place] [address] Dr. Hugh Landis MCH (RBC) [Entitic mass] 29.6 pg Normal 25.9-34.0 [facility] Comment on above: Performed By: #### P T #### [facility] [address] [place] [address] Dr. Hugh Landis MCHC (RBC) [Mass/Vol] 31.8 g/dL Normal 29.9-35.2 [facility] Comment on above: Performed By: #### P T #### [facility] [address] [place] [address] Dr. Hugh Landis MCV (RBC) [Entitic vol] 93.1 fL Normal 80.0-94.0 [facility] Comment on above: Performed By: #### P T #### [facility] [address] [place] [address] Dr. Hugh Landis MONO # 0.8 103/ul Normal 0.3-0.8 [facility] Comment on above: Performed By: #### P T #### [facility] [address] [place] [address] Dr. Hugh Landis Monocytes/100 WBC (Bld) 11.5 % Normal 1.7-12.0 [facility] Comment on above: Performed By: #### P T #### [facility] [address] [place] [address] [address] Hugh Landis NEUT # 4.2 103/ul Normal 1.4-6.5 [facility] Comment on above: Performed By: #### P T #### [facility] [address] [place] [address] [address] Hugh Landis Neutrophils/100 WBC (Bld) 64.0 % Normal 43.0-75.0 [facility] Comment on above: Performed By: #### P T #### [facility] [address] [place] [address] [address] Hugh Landis Platelet mean volume (Bld) [Entitic vol] 9.2 fL Critically low 9.5-13.5 [facility] Comment on above: Performed By: #### P T #### [facility] [address] [place] [address] Dr. Hugh Landis PLT 241 103/ul Normal 150-450 [facility] Comment on above: Performed By: #### P T #### [facility] [address] [place] [address] [address] Hugh Landis RBC 3.89 106/ul Critically low 4.70-6.10 [facility] Comment on above: Performed By: #### P T #### [facility] [address] [place] [address] [address] Hugh Landis WBC 6.5 103/ul Normal 4.0-11.0 [facility] Comment on above: Performed By: #### P T #### [facility] [address] [place] [address] Dr. Hugh Landis Covid-19 PCR (CVDTB)on 09-26 SARS-CoV-2 (COVID-19) RNA MUKUL+probe Ql (Unsp spec) Not detected Normal NOT DETECTED [facility] Comment on above: Result Comment: This test is not yet approved or cleared by the [place] FDA. When there are no FDA-approved or cleared tests available, and other criteria are met, FDA can make tests available under an emergency access mechanism called an Emergency Use Authorization (EUA). The EUA for this test is supported by the [place] Clerk of Health and Human Service's (HHS's) declaration that circumstances exist to justify the emergency use of in vitro diagnostics for the detection and/or diagnosis of the virus that causes COVID-19. This EUA will remain in effect (meaning this test can be used) for the duration of the COVID-19 declaration justifying emergency of IVDs, unless it is terminated or revoked by FDA (after which the test may no longer be used). When diagnostic testing is negative, the possibility of a false negative should be considered in the context of a patient's recent exposures and the presence of clinical signs and symptoms consistent with SARS-CoV-2. Performed By: #### U TOMAS, TSH, CMP, LIPID, T7 #### [facility] [address] [place] [address] [address] Hugh Landis PROF CHEM 8 (BAS METB)on Anion gap [Moles/Vol] 16.3 mmol/L Normal [facility] Comment on above: Performed By: #### C MP, LIPID, TSH #### [facility] [address] [place] [address] [address] Hugh Landis Calcium [Mass/Vol] 9.6 mg/dL Normal 8.5-10.1 [facility] Comment on above: Performed By: #### C MP, LIPID, TSH #### [facility] [address] [place] [address] Dr. Hugh Landis Chloride [Moles/Vol] 103 mmol/L Normal 98-107 [facility] Comment on above: Performed By: #### C MP, LIPID, TSH #### [facility] [address] [place] [address] Dr. Hugh Landis CO2 [Moles/Vol] 21.9 mmol/L Normal 21.0-32.0 [facility] Comment on above: Performed By: #### C MP, LIPID, TSH #### [facility] [address] [place] [address] Dr. Hugh Landis Creatinine [Mass/Vol] 3.58 mg/dL Critically high 0.70-1.30 [facility] Comment on above: Performed By: #### C MP, LIPID, TSH #### [facility] [address] [place] [address] [address] Hugh Landis EGFR-AF GUAMANIAN 21 mL/min/1.73m2 Critically low >=60 [facility] Comment on above: Performed By: #### C MP, LIPID, TSH #### [facility] [address] [place] [address] [address] Hugh Landis EGFR-NON AF GUAMANIAN 18 mL/min/1.73m2 Critically low >=60 [facility] Comment on above: Performed By: #### C MP, LIPID, TSH #### [facility] [address] [place] [address] Dr. Hugh Landis Glucose [Mass/Vol] 115 mg/dL Critically high 74-106 [facility] Comment on above: Performed By: #### C MP, LIPID, TSH #### [facility] [address] [place] [address] Dr. Hugh Landis Potassium [Moles/Vol] 5.2 mmol/L Critically high 3.5-5.1 [facility] Comment on above: Performed By: #### C MP, LIPID, TSH #### [facility] [address] [place] [address] Dr. Hugh Landis Sodium [Moles/Vol] 136 mmol/L Normal 136-145 [facility] Comment on above: Performed By: #### C MP, LIPID, TSH #### [facility] [address] [place] [address] Dr. Hugh Landis Urea nitrogen [Mass/Vol] 54.0 mg/dL Critically high 7.0-18.0 [facility] Comment on above: Performed By: #### C MP, LIPID, TSH #### [facility] [address] [place] [address] Dr. Hugh Landis Urea nitrogen/Creatinine [Mass ratio] 15.1 mg/mg Normal [facility] Comment on above: Performed By: #### C MP, LIPID, TSH #### [facility] [address] [place] [address] Dr. Hugh Landis MRSA COLONIZATION SCREENING CULTUREon 10-09-2021 MRSA Screening Culture Negative Normal [facility] Comment on above: Performed By: #### C MP, LIPID, TSH #### [facility] [address] [place] [address] Dr. Hugh Landis CBC AUTO DIFFon 10-06-2021 BASO # 0.0 103/ul Normal 0.0-0.1 [facility] Comment on above: Performed By: #### U TOMAS, TSH, CMP, LIPID, T7 #### [facility] [address] [place] [address] Dr. Hugh Landis Basophils/100 WBC (Bld) 0.3 % Normal 0.2-2.0 [facility] Comment on above: Performed By: #### U TOMAS, TSH, CMP, LIPID, T7 #### [facility] [address] [place] [address] Dr. Hugh Landis EO # 0.1 103/ul Normal 0.0-0.7 [facility] Comment on above: Performed By: #### U TOMAS, TSH, CMP, LIPID, T7 #### [facility] [address] [place] [address] Dr. Hugh Landis Eosinophils/100 WBC (Bld) 2.3 % Normal 0.9-7.0 [facility] Comment on above: Performed By: #### U TOMAS, TSH, CMP, LIPID, T7 #### [facility] [address] [place] [address] Dr. Hugh Landis Erythrocyte distribution width (RBC) [Ratio] 13.3 % Normal 11.0-15.0 [facility] Comment on above: Performed By: #### U TOMAS, TSH, CMP, LIPID, T7 #### [facility] [address] [place] [address] Dr. Hugh Landis Hematocrit (Bld) [Volume fraction] 36.5 % Critically low 42.0-54.0 [facility] Comment on above: Performed By: #### U TOMAS, TSH, CMP, LIPID, T7 #### [facility] [address] [place] [address] Dr. Hugh Landis Hemoglobin (Bld) [Mass/Vol] 11.7 g/dL Critically low 14.0-18.0 [facility] Comment on above: Performed By: #### U TOMAS, TSH, CMP, LIPID, T7 #### [facility] [address] [place] [address] [address] Hugh Landis IG # 0.02 10e3/ul Normal 0.00-0.03 [facility] Comment on above: Performed By: #### U TOMAS, TSH, CMP, LIPID, T7 #### [facility] [address] [place] [address] Dr. Hugh Landis IG % 0.3 % Normal 0.0-0.5 [facility] Comment on above: Performed By: #### U TOMAS, TSH, CMP, LIPID, T7 #### [facility] [address] [place] [address] Dr. Hugh Landis LYMPH # 1.3 103/ul Normal 1.2-3.8 [facility] Comment on above: Performed By: #### U TOMAS, TSH, CMP, LIPID, T7 #### [facility] [address] [place] [address] Dr. Hugh Landis Lymphocytes/100 WBC (Bld) 21.9 % Normal 20.5-60.0 [facility] Comment on above: Performed By: #### U TOMAS, TSH, CMP, LIPID, T7 #### [facility] [address] [place] [address] Dr. Hugh Landis MANUAL DIFF REQ NO Normal [facility] Comment on above: Performed By: #### U TOMAS, TSH, CMP, LIPID, T7 #### [facility] [address] [place] [address] Dr. Hugh Landis MCH (RBC) [Entitic mass] 29.7 pg Normal 25.9-34.0 [facility] Comment on above: Performed By: #### U TOMAS, TSH, CMP, LIPID, T7 #### [facility] [address] [place] [address] Dr. Hugh Landis MCHC (RBC) [Mass/Vol] 32.1 g/dL Normal 29.9-35.2 [facility] Comment on above: Performed By: #### U TOMAS, TSH, CMP, LIPID, T7 #### [facility] [address] [place] [address] Dr. Hugh Landis MCV (RBC) [Entitic vol] 92.6 fL Normal 80.0-94.0 [facility] Comment on above: Performed By: #### U TOMAS, TSH, CMP, LIPID, T7 #### [facility] [address] [place] [address] Dr. Hugh Landis MONO # 0.7 103/ul Normal 0.3-0.8 [facility] Comment on above: Performed By: #### U TOMAS, TSH, CMP, LIPID, T7 #### [facility] [address] [place] [address] Dr. Hugh Landis Monocytes/100 WBC (Bld) 11.3 % Normal 1.7-12.0 [facility] Comment on above: Performed By: #### U TOMAS, TSH, CMP, LIPID, T7 #### [facility] [address] [place] [address] Dr. Hugh Landis NEUT # 3.7 103/ul Normal 1.4-6.5 [facility] Comment on above: Performed By: #### U TOMAS, TSH, CMP, LIPID, T7 #### [facility] [address] [place] [address] Dr. Hugh Landis Neutrophils/100 WBC (Bld) 63.9 % Normal 43.0-75.0 [facility] Comment on above: Performed By: #### U TOMAS, TSH, CMP, LIPID, T7 #### [facility] [address] [place] [address] Dr. Hugh Landis Platelet mean volume (Bld) [Entitic vol] 8.9 fL Critically low 9.5-13.5 [facility] Comment on above: Performed By: #### U TOMAS, TSH, CMP, LIPID, T7 #### [facility] [address] [place] [address] Dr. Hugh Landis PLT 257 103/ul Normal 150-450 [facility] Comment on above: Performed By: #### U TOMAS, TSH, CMP, LIPID, T7 #### [facility] [address] [place] [address] Dr. Hugh Landis RBC 3.94 106/ul Critically low 4.70-6.10 [facility] Comment on above: Performed By: #### U TOMAS, TSH, CMP, LIPID, T7 #### [facility] [address] [place] [address] [address] Hugh Landis WBC 5.8 103/ul Normal 4.0-11.0 [facility] Comment on above: Performed By: #### U TOMAS, TSH, CMP, LIPID, T7 #### [facility] [address] [place] [address] [address] Hugh Landis GLYCOHEMOGLOBIN A1Con 2021 ADA RECOMMENDATION SEE BELOW Normal [facility] Comment on above: Result Comment: ADA RECOMMENDED LIMIT 4.0 - 6.0 ADA THERAPEUTIC TARGET < 7.0 ACTION SUGGESTED > 7.0 Performed By: #### U TOMAS, TSH, CMP, LIPID, T7 #### [facility] [address] [place] [address] [address] Hugh Landis Glucose [Mass/Vol] 134 mg/dL Normal [facility] Comment on above: Performed By: #### U TOMAS, TSH, CMP, LIPID, T7 #### [facility] [address] [place] [address] [address] Hugh Landis HbA1c (Bld) [Mass fraction] 6.3 % Critically high 4.5-6.2 [facility] Comment on above: Performed By: #### U TOMAS, TSH, CMP, LIPID, T7 #### [facility] [address] [address] [address] Hugh Landis PROF CHEM 8 (BAS METB)on Anion gap [Moles/Vol] 17.6 mmol/L Normal [facility] Comment on above: Performed By: #### C MP, LIPID, TSH #### [facility] [address] [address] [address] Hugh Landis Calcium [Mass/Vol] 9.5 mg/dL Normal 8.5-10.1 [facility] Comment on above: Performed By: #### C MP, LIPID, TSH #### [facility] [address] [place] [address] [address] Hugh Landis Chloride [Moles/Vol] 102 mmol/L Normal 98-107 [facility] Comment on above: Performed By: #### C MP, LIPID, TSH #### [facility] [address] [place] [address] Dr. Hugh Landis CO2 [Moles/Vol] 22.2 mmol/L Normal 21.0-32.[address] [facility] Comment on above: Performed By: #### C MP, LIPID, TSH #### [facility] [address] [address] [address] Hugh Landis Creatinine [Mass/Vol] 2.94 mg/dL Critically high 0.70-1.30 [facility] Comment on above: Performed By: #### C MP, LIPID, TSH #### [facility] [address] [place] [address] Dr. Hugh Landis EGFR-AF GUAMANIAN 27 mL/min/1.73m2 Critically low >=60 [facility] Comment on above: Performed By: #### C MP, LIPID, TSH #### [facility] [address] [place] [address] Dr. Hugh Landis EGFR-NON AF GUAMANIAN 22 mL/min/1.73m2 Critically low >=60 [facility] Comment on above: Performed By: #### C MP, LIPID, TSH #### [facility] [address] [place] [address] Dr. Hugh Landis Glucose [Mass/Vol] 234 mg/dL Critically high 74-106 [facility] Comment on above: Performed By: #### C MP, LIPID, TSH #### [facility] [address] [place] [address] Dr. Hugh Landis Potassium [Moles/Vol] 5.8 mmol/L Critically high 3.5-5.1 [facility] Comment on above: Performed By: #### C MP, LIPID, TSH #### [facility] [address] [place] [address] Dr. Hugh Lnadis Sodium [Moles/Vol] 136 mmol/L Normal 136-145 [facility] Comment on above: Performed By: #### C MP, LIPID, TSH #### [facility] [address] [address] [address] Hugh Landis Urea nitrogen [Mass/Vol] 46.0 mg/dL Critically high 7.0-18.0 [facility] Comment on above: Performed By: #### C MP, LIPID, TSH #### [facility] [address] [address] [address] Hugh Landis Urea nitrogen/Creatinine [Mass ratio] 15.6 mg/mg Normal [facility] Comment on above: Performed By: #### C MP, LIPID, TSH #### [facility] [address] [address] [address] Hugh Landis PROTIMEon 10-06-2021 INR Coag (PPP) [Relative time] 1.22 {INR} Normal [facility] Comment on above: Performed By: #### U TOMAS, TSH, CMP, LIPID, T7 #### [facility] [address] [place] [address] Dr. Hugh Landis INR GUIDELINES SEE BELOW Normal [facility] Comment on above: Result Comment: VIC RED INR: 2.0 - 3.0 CONDITIONS NOT LISTED BELOW 2.5 - 3.5 FOR PROSTHETIC HEART VALVE REPLACEMENT 2.5 - 3.5 RECURRENT THROMBOSIS Performed By: #### U TOMAS, TSH, CMP, LIPID, T7 #### [facility] [address] [place] [address] Dr. Hugh Landis PT Coag (PPP) [Time] 13.0 s Critically high 9.0-11.6 [facility] Comment on above: Performed By: #### U TOMAS, TSH, CMP, LIPID, T7 #### [facility] [address] [place] [address] Dr. Hugh Landis PTTon 10-06-2021 aPTT Coag (Bld) [Time] 30.6 s Normal 22.3-36.2 [facility] Comment on above: Performed By: #### U TOMAS, TSH, CMP, LIPID, T7 #### [facility] [address] [place] [address] Dr. Hugh Landis UA RANDOMon 10-06-2021 Bilirubin Ql (U) Negative Normal NEGATIVE [facility] Comment on above: Performed By: #### C MP, LIPID, TSH #### [facility] [address] [address] [address] Hugh Landis Clarity (U) CLEAR Normal CLEAR [facility] Comment on above: Performed By: #### C MP, LIPID, TSH #### [facility] [address] [address] [address] Hugh Landis Color (U) LT. YELLOW Normal YELLOW [facility] Comment on above: Performed By: #### C MP, LIPID, TSH #### [facility] [address] [address] [address] Hugh Landis Glucose Ql (U) Negative Normal NEGATIVE [facility] Comment on above: Performed By: #### C MP, LIPID, TSH #### [facility] [address] [address] [address] Hugh Landis Hemoglobin Ql (U) Negative Normal NEGATIVE [facility] Comment on above: Performed By: #### C MP, LIPID, TSH #### [facility] [address] [address] [address] Hugh Landis Ketones Ql (U) Negative Normal NEGATIVE [facility] Comment on above: Performed By: #### C MP, LIPID, TSH #### [facility] [address] [address] [address] Hugh Landis LEUKOCYTES Negative Normal NEGATIVE [facility] Comment on above: Performed By: #### C MP, LIPID, TSH #### [facility] [address] [address] [address] Hugh Landis Nitrite Ql (U) Negative Normal NEGATIVE [facility] Comment on above: Performed By: #### C MP, LIPID, TSH #### [facility] [address] [address] [address] Hugh Landis pH (U) 5.5 [pH] Normal 5-9 [facility] Comment on above: Performed By: #### C MP, LIPID, TSH #### [facility] [address] [address] [address] Hugh Landis SPEC GRAVITY 1.020 Normal 1.005-<=1.025 [facility] Comment on above: Performed By: #### C MP, LIPID, TSH #### [facility] [address] [address] [address] Hugh Landis UA PROTEIN Negative Normal NEGATIVE/ TRACE [facility] Comment on above: Performed By: #### C MP, LIPID, TSH #### [facility] [address] [address] [address] Hugh Landis Urobilinogen Qn (U) 0.2 {Dahiana'U}/dL Normal 0.2 - 1. 0 [facility] Comment on above: Performed By: #### C MP, LIPID, TSH #### [facility] [address] [place] [address] Dr. Hugh Landis CBC AUTO DIFFon 09-25-2021 BASO # 0.0 103/ul Normal 0.0-0.1 [facility] Comment on above: Performed By: #### U TOMAS, TSH, CMP, LIPID, T7 #### [facility] [address] [place] [address] Dr. Hugh Landis Basophils/100 WBC (Bld) 0.4 % Normal 0.2-2.0 [facility] Comment on above: Performed By: #### U TOMAS, TSH, CMP, LIPID, T7 #### [facility] [address] [place] [address] Dr. Hugh Landis EO # 0.1 103/ul Normal 0.0-0.7 [facility] Comment on above: Performed By: #### U TOMAS, TSH, CMP, LIPID, T7 #### [facility] [address] [address] [address] Hugh Landis Eosinophils/100 WBC (Bld) 1.7 % Normal 0.9-7.0 [facility] Comment on above: Performed By: #### U TOMAS, TSH, CMP, LIPID, T7 #### [facility] [address] [address] [address] Hugh Landis Erythrocyte distribution width (RBC) [Ratio] 13.5 % Normal 11.0-15.0 [facility] Comment on above: Performed By: #### U TOMAS, TSH, CMP, LIPID, T7 #### [facility] [address] [place] [address] Dr. Hugh Lnadis Hematocrit (Bld) [Volume fraction] 36.0 % Critically low 42.0-54.0 [facility] Comment on above: Performed By: #### U TOMAS, TSH, CMP, LIPID, T7 #### [facility] [address] [address] [address] Hugh Landis Hemoglobin (Bld) [Mass/Vol] 11.7 g/dL Critically low 14.0-18.0 [facility] Comment on above: Performed By: #### U TOMAS, TSH, CMP, LIPID, T7 #### [facility] [address] [place] [address] Dr. Hugh Landis IG # 0.02 10e3/ul Normal 0.00-0.03 [facility] Comment on above: Performed By: #### U TOMAS, TSH, CMP, LIPID, T7 #### [facility] [address] [place] [address] Dr. Hugh Landis IG % 0.3 % Normal 0.0-0.5 [facility] Comment on above: Performed By: #### U TOMAS, TSH, CMP, LIPID, T7 #### [facility] [address] [place] [address] Dr. Hugh Lanids LYMPH # 1.3 103/ul Normal 1.2-3.8 [facility] Comment on above: Performed By: #### U TOMAS, TSH, CMP, LIPID, T7 #### [facility] [address] [place] [address] Dr. Hugh Landis Lymphocytes/100 WBC (Bld) 18.3 % Critically low 20.5-60.0 [facility] Comment on above: Performed By: #### U TOMAS, TSH, CMP, LIPID, T7 #### [facility] [address] [place] [address] Dr. Hugh Landis MANUAL DIFF REQ NO Normal [facility] Comment on above: Performed By: #### U TOMAS, TSH, CMP, LIPID, T7 #### [facility] [address] [place] [address] Dr. Hugh Landis MCH (RBC) [Entitic mass] 29.4 pg Normal 25.9-34.0 [facility] Comment on above: Performed By: #### U TOMAS, TSH, CMP, LIPID, T7 #### [facility] [address] [place] [address] Dr. Hugh Landis MCHC (RBC) [Mass/Vol] 32.5 g/dL Normal 29.9-35.2 [facility] Comment on above: Performed By: #### U TOMAS, TSH, CMP, LIPID, T7 #### [facility] [address] [place] [address] Dr. Hugh Landis MCV (RBC) [Entitic vol] 90.5 fL Normal 80.0-94.0 [facility] Comment on above: Performed By: #### U TOMAS, TSH, CMP, LIPID, T7 #### [facility] [address] [place] [address] Dr. Hugh Landis MONO # 0.6 103/ul Normal 0.3-0.8 [facility] Comment on above: Performed By: #### U TOMAS, TSH, CMP, LIPID, T7 #### [facility] [address] [place] [address] Dr. Hugh Landis Monocytes/100 WBC (Bld) 8.6 % Normal 1.7-12.0 [facility] Comment on above: Performed By: #### U TOMAS, TSH, CMP, LIPID, T7 #### [facility] [address] [place] [address] Dr. Hugh Landis NEUT # 4.9 103/ul Normal 1.4-6.5 [facility] Comment on above: Performed By: #### U TOMAS, TSH, CMP, LIPID, T7 #### [facility] [address] [place] [address] Dr. Hugh Landis Neutrophils/100 WBC (Bld) 70.7 % Normal 43.0-75.0 [facility] Comment on above: Performed By: #### U TOMAS, TSH, CMP, LIPID, T7 #### [facility] [address] [place] [address] Dr. Hugh Landis Platelet mean volume (Bld) [Entitic vol] 8.8 fL Critically low 9.5-13.5 [facility] Comment on above: Performed By: #### U TOMAS, TSH, CMP, LIPID, T7 #### [facility] [address] [place] [address] Dr. Hugh Landis PLT 270 103/ul Normal 150-450 [facility] Comment on above: Performed By: #### U TOMAS, TSH, CMP, LIPID, T7 #### [facility] [address] [place] [address] Dr. Hugh Landis RBC 3.98 106/ul Critically low 4.70-6.10 [facility] Comment on above: Performed By: #### U TOMAS, TSH, CMP, LIPID, T7 #### [facility] [address] [place] [address] Dr. Hugh Landis WBC 6.9 103/ul Normal 4.0-11.0 [facility] Comment on above: Performed By: #### U TOMAS, TSH, CMP, LIPID, T7 #### [facility] [address] [place] [address] Dr. Hugh Lanids CRPon 09-25-2021 CRP [Mass/Vol] mg/L Normal <=1.0 [facility] Comment on above: Performed By: #### P T #### [facility] [address] [place] [address] Dr. Hugh Landis CULTURE BLOODon 09-25-2021 Microscopic examination of blood, culture Culture Observations: NO GROWTH AT 5 DAYS. Normal [facility] Comment on above: Performed By: #### B MP #### [facility] [address] [place] [address] Dr. Hugh Landis Microscopic examination of blood, culture Culture Observations: NO GROWTH AT 5 DAYS. Normal [facility] Comment on above: Performed By: #### B MP #### [facility] [address] [place] [address] Dr. Hugh Landis IRONon 09-25-2021 Iron [Mass/Vol] 62.0 ug/dL Critically low 65.0-175.0 [facility] Comment on above: Performed By: #### B MP #### [facility] [address] [address] [address] Hugh Landis SED RATE WESTERGRENon 2021 SED RATE 102 mm/hr Critically high <=20 [facility] Comment on above: Performed By: #### C MP, LIPID, TSH #### [facility] [address] [place] [address] Dr. 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 TECHNIQUE: 24.6 mCi Technetium 99m MDP was injected intravenously followed by acquisition of dynamic flow, immediate blood pool, and delayed static images. FINDINGS: IMAGED AREA: Bilateral knees FLOW PHASE: Normal. BLOOD POOL PHASE: Asymmetrically increased activity in the tibia and fibula surrounding the right knee prosthesis. Slight increased activity identified in the left medial tibial plateau at the margin of the prosthesis DELAYED IMAGES: Normal. OTHER: Negative. IMPRESSION: Diffuse increase in right knee periprosthetic bone activity on blood pool and delayed images, consider loosening or particle disease Slight increase activity left medial tibial plateau Electronically authenticated by: OBIE TSE Date: 2021-09-05 16:15 Normal [facility] CREATININEon 08-25-2021 Creatinine [Mass/Vol] 1.92 mg/dL Critically high 0.70-1.30 [facility] Comment on above: Performed By: #### C MP, LIPID, TSH #### [facility] [address] [place] [address] Dr. Hugh Landis EGFR-AF GUAMANIAN 44 mL/min/1.73m2 Critically low >=60 [facility] Comment on above: Performed By: #### C MP, LIPID, TSH #### [facility] [address] [address] [address] Hugh Landis EGFR-NON AF GUAMANIAN 36 mL/min/1.73m2 Critically low >=60 [facility] Comment on above: Performed By: #### C MP, LIPID, TSH #### [facility] [address] [address] [address] Hugh Landis CTA CHEST WO W CONon 022 CTA CHEST WO W CON EXAMINATION: CTA BOOKER ST WO W CON HISTORY: Pulmonary embolism COMPARISON: 07/15/2021 TECHNIQUE: Axial, Coronal, and Sagittal images were created without and with IV contrast. Dose reduction techniques were achieved by using automated exposure control and/or adjustment of mA and/or kV according to patient size and/or use of iterative reconstruction technique. FINDINGS: LUNGS: Scattered dependent opacities, atelectasis is favored. Scattered punctate pulmonary nodules of doubtful clinical significance. No significant peribronchial thickening or bronchiectasis. PLEURA: 8mm right and 5 mm left pleural effusions VASCULATURE: Normal postcontrast opacification of the central pulmonary arterial tree with no focal filling defects. WILL: No mass or adenopathy. MEDIASTINUM: No mass or adenopathy. CARDIAC: Stable cardiomegaly. No pericardial effusion. Mild coronary atherosclerosis AORTA: No aneurysm or dissection. CHEST WALL: No mass or axillary adenopathy. BONES: No bone lesion or fracture. LIMITED ABDOMEN: Suture line along the stomach OTHER: Negative. IMPRESSION: No central pulmonary thromboembolic disease Electronically authenticated by: OBIE TSE Date: 2021-08-25 10:16 Normal [facility] CBC AUTO DIFFon 08-18-2021 BASO # 0.0 103/ul Normal 0.0-0.1 [facility] Comment on above: Performed By: #### C MP, LIPID, TSH #### [facility] [address] [address] [address] Hugh Landis Basophils/100 WBC (Bld) 0.4 % Normal 0.2-2.0 [facility] Comment on above: Performed By: #### C MP, LIPID, TSH #### [facility] [address] [address] [address] Hugh Landis EO # 0.1 103/ul Normal 0.0-0.7 [facility] Comment on above: Performed By: #### C MP, LIPID, TSH #### [facility] [address] [place] [address] Dr. Hugh Landis Eosinophils/100 WBC (Bld) 1.8 % Normal 0.9-7.0 [facility] Comment on above: Performed By: #### C MP, LIPID, TSH #### [facility] [address] [address] [address] Hugh Landis Erythrocyte distribution width (RBC) [Ratio] 13.3 % Normal 11.0-15.0 [facility] Comment on above: Performed By: #### C MP, LIPID, TSH #### [facility] [address] [place] [address] Dr. Hugh Landis Hematocrit (Bld) [Volume fraction] 34.7 % Critically low 42.0-54.0 [facility] Comment on above: Performed By: #### C MP, LIPID, TSH #### [facility] [address] [place] [address] Dr. Hugh Ladnis Hemoglobin (Bld) [Mass/Vol] 11.3 g/dL Critically low 14.0-18.0 [facility] Comment on above: Performed By: #### C MP, LIPID, TSH #### [facility] [address] [place] [address] Dr. Hugh Landis IG # 0.05 10e3/ul Critically high 0.00-0.03 [facility] Comment on above: Performed By: #### C MP, LIPID, TSH #### [facility] [address] [place] [address] Dr. Hugh Landis IG % 0.7 % Critically high 0.0-0.5 [facility] Comment on above: Performed By: #### C MP, LIPID, TSH #### [facility] [address] [place] [address] Dr. Hugh Landis LYMPH # 1.1 103/ul Critically low 1.2-3.8 [facility] Comment on above: Performed By: #### C MP, LIPID, TSH #### [facility] [address] [place] [address] Dr. Hugh Landis Lymphocytes/100 WBC (Bld) 16.0 % Critically low 20.5-60.0 [facility] Comment on above: Performed By: #### C MP, LIPID, TSH #### [facility] [address] [place] [address] Dr. Hugh Landis MANUAL DIFF REQ NO Normal [facility] Comment on above: Performed By: #### C MP, LIPID, TSH #### [facility] [address] [place] [address] Dr. Hugh Landis MCH (RBC) [Entitic mass] 29.7 pg Normal 25.9-34.0 [facility] Comment on above: Performed By: #### C MP, LIPID, TSH #### [facility] [address] [place] [address] Dr. Hugh Landis MCHC (RBC) [Mass/Vol] 32.6 g/dL Normal 29.9-35.2 [facility] Comment on above: Performed By: #### C MP, LIPID, TSH #### [facility] [address] [place] [address] Dr. Hugh Landis MCV (RBC) [Entitic vol] 91.3 fL Normal 80.0-94.0 [facility] Comment on above: Performed By: #### C MP, LIPID, TSH #### [facility] [address] [place] [address] Dr. Hugh Landis MONO # 0.7 103/ul Normal 0.3-0.8 [facility] Comment on above: Performed By: #### C MP, LIPID, TSH #### [facility] [address] [place] [address] Dr. Hugh Landis Monocytes/100 WBC (Bld) 9.7 % Normal 1.7-12.0 [facility] Comment on above: Performed By: #### C MP, LIPID, TSH #### [facility] [address] [place] [address] Dr. Hugh Landis NEUT # 4.9 103/ul Normal 1.4-6.5 [facility] Comment on above: Performed By: #### C MP, LIPID, TSH #### [facility] [address] [place] [address] Dr. Hugh Landis Neutrophils/100 WBC (Bld) 71.4 % Normal 43.0-75.0 [facility] Comment on above: Performed By: #### C MP, LIPID, TSH #### [facility] [address] [address] [address] Hugh Landis Platelet mean volume (Bld) [Entitic vol] 9.0 fL Critically low 9.5-13.5 [facility] Comment on above: Performed By: #### C MP, LIPID, TSH #### [facility] [address] [place] [address] Dr. Hugh Landis PLT 264 103/ul Normal 150-450 [facility] Comment on above: Performed By: #### C MP, LIPID, TSH #### [facility] [address] [place] [address] Dr. Hugh Landis RBC 3.80 106/ul Critically low 4.70-6.10 [facility] Comment on above: Performed By: #### C MP, LIPID, TSH #### [facility] [address] [place] [address] Dr. Hugh Landis WBC 6.8 103/ul Normal 4.0-11.0 [facility] Comment on above: Performed By: #### C MP, LIPID, TSH #### [facility] [address] [place] [address] Dr. Hugh Landis PROF 14(COMP METB)on 022 Albumin [Mass/Vol] 3.5 g/dL Normal 3.4-5.0 [facility] Comment on above: Performed By: #### U TOMAS, TSH, CMP, LIPID, T7 #### [facility] [address] [place] [address] Dr. Hugh Landis Albumin/Globulin [Mass ratio] 0.8 {ratio} Normal [facility] Comment on above: Performed By: #### U TOMAS, TSH, CMP, LIPID, T7 #### [facility] [address] [place] [address] Dr. Hugh Landis ALP [Catalytic activity/Vol] 63 U/L Normal 46-116 [facility] Comment on above: Performed By: #### U TOMAS, TSH, CMP, LIPID, T7 #### [facility] [address] [address] [address] Hugh Landis ALT [Catalytic activity/Vol] 26 U/L Normal 16-63 [facility] Comment on above: Performed By: #### U TOMAS, TSH, CMP, LIPID, T7 #### [facility] [address] [address] [address] Hugh Landis Anion gap [Moles/Vol] 12.7 mmol/L Normal [facility] Comment on above: Performed By: #### U TOMAS, TSH, CMP, LIPID, T7 #### [facility] [address] [address] [address] Hugh Landis AST [Catalytic activity/Vol] 14 U/L Critically low 15-37 [facility] Comment on above: Performed By: #### U TOMAS, TSH, CMP, LIPID, T7 #### [facility] [address] [address] [address] Hugh Landis Bilirubin [Mass/Vol] 0.3 mg/dL Normal 0.2-1.0 [facility] Comment on above: Performed By: #### U TOMAS, TSH, CMP, LIPID, T7 #### [facility] [address] [place] [address] Dr. Hugh Landis Calcium [Mass/Vol] 9.2 mg/dL Normal 8.5-10.1 [facility] Comment on above: Performed By: #### U TOMAS, TSH, CMP, LIPID, T7 #### [facility] [address] [address] [address] Hugh Landis Chloride [Moles/Vol] 105 mmol/L Normal 98-107 [facility] Comment on above: Performed By: #### U TOMAS, TSH, CMP, LIPID, T7 #### [facility] [address] [place] [address] Dr. Hugh Landis CO2 [Moles/Vol] 25.5 mmol/L Normal 21.0-32.[address] [facility] Comment on above: Performed By: #### U TOMAS, TSH, CMP, LIPID, T7 #### [facility] [address] [address] [address] Hugh Landis Creatinine [Mass/Vol] 2.46 mg/dL Critically high 0.70-1.30 [facility] Comment on above: Performed By: #### U TOMAS, TSH, CMP, LIPID, T7 #### [facility] [address] [address] [address] Hugh Landis EGFR-AF GUAMANIAN 33 mL/min/1.73m2 Critically low >=60 [facility] Comment on above: Performed By: #### U TOMAS, TSH, CMP, LIPID, T7 #### [facility] [address] [address] [address] Hugh Landis EGFR-NON AF GUAMANIAN 27 mL/min/1.73m2 Critically low >=60 [facility] Comment on above: Performed By: #### U TOMAS, TSH, CMP, LIPID, T7 #### [facility] [address] [place] [address] Dr. Hugh Landis Globulin (S) [Mass/Vol] 4.5 g/dL Normal [facility] Comment on above: Performed By: #### U TOMAS, TSH, CMP, LIPID, T7 #### [facility] [address] [address] [address] Hugh Landis Glucose [Mass/Vol] 119 mg/dL Critically high 74-106 [facility] Comment on above: Performed By: #### U TOMAS, TSH, CMP, LIPID, T7 #### [facility] [address] [address] [address] Hugh Landis Potassium [Moles/Vol] 4.2 mmol/L Normal 3.5-5.1 [facility] Comment on above: Performed By: #### U TOMAS, TSH, CMP, LIPID, T7 #### [facility] [address] [place] [address] Dr. Hugh Landis Protein [Mass/Vol] 8.0 g/dL Normal 6.4-8.2 [facility] Comment on above: Performed By: #### U TOMAS, TSH, CMP, LIPID, T7 #### [facility] [address] [place] [address] Dr. Hugh Landis Sodium [Moles/Vol] 139 mmol/L Normal 136-145 [facility] Comment on above: Performed By: #### U TOMAS, TSH, CMP, LIPID, T7 #### [facility] [address] [address] [address] Hugh Landis Urea nitrogen [Mass/Vol] 49.0 mg/dL Critically high 7.0-18.0 [facility] Comment on above: Performed By: #### U TOMAS, TSH, CMP, LIPID, T7 #### [facility] [address] [address] [address] Hugh Landis Urea nitrogen/Creatinine [Mass ratio] 19.9 mg/mg Normal [facility] Comment on above: Performed By: #### U TOMAS, TSH, CMP, LIPID, T7 #### [facility] [address] [place] [address] Dr. Hugh Landis TESTOSTERONE, FREE,DIRECT, T OTALon 08-14-2021 Free Testosterone(Direct ) 5.9 pg/mL Critically low 7.2-24.0 [facility] Comment on above: Result Comment: Perf ormed at: BN Performed By: #### B MP #### [facility] [address] [place] [address] Dr. Hugh Landis Testosterone [Mass/Vol] 392 ng/dL Normal 264-916 [facility] Comment on above: Result Comment: Adul t male reference interval is based on a population of healthy nonobese males (BMI <30) between 19 and 39 years old. Gavi et.al. JCEM 2017,102;4755-1256. PMID: [id number]. Performed at: CB Performed By: #### B MP #### [facility] [address] [place], [place] [id number] Dr. Hugh Landis VITAMIN B1 (THIAMINE)on 07-27 Vit. B1, Whole Blood 145.1 nmol/L Normal 66.5-200.0 [facility] Comment on above: Performed By: #### C MP, LIPID, TSH #### [facility] [address] [place] [address] Dr. Hugh Landis VITAMIN Aon 08-13-2021 Vitamin A 82.7 ug/dL Critically high 20.1-62.0 [facility] Comment on above: Result Comment: Refe rence intervals for vitamin A determined from [facility] internal studies. Individuals with vitamin A less than 20 ug/dL are considered vitamin A deficient and those with serum concentrations less than 10 ug/dL are considered severely deficient. . This test was developed and its performance characteristics determined by [facility]. It has not been cleared or approved by the Food and Drug Administration. Performed By: #### P T #### [facility] [address] [place] [address] Dr. Hugh Landis ZINC SERUM OR PLASMAon 08-10 Zinc, Plasma or Serum 78 ug/dL Normal 44-115 [facility] Comment on above: Result Comment: Dete ction Limit = 5 Performed By: #### C MP, LIPID, TSH #### [facility] [address] [place] [address] Dr. Hugh Landis FOLATE ([facility])on 2 Folate 12.9 ng/mL Normal >3.0 [facility] Comment on above: Result Comment: A se rum folate concentration of less than 3.1 ng/mL is considered to represent clinical deficiency. Performed By: #### P TT #### [facility] [address] [place] [address] Dr. Hugh Landis PTH INTACTon 08-09-2021 PTH, Intact 29 pg/mL Normal 15-65 [facility] Comment on above: Performed By: #### P TT #### [facility] [address] [place] [address] Dr. Hugh Landis CBC AUTO DIFFon 08-08-2021 BASO # 0.0 103/ul Normal 0.0-0.1 [facility] Comment on above: Performed By: #### C MP, LIPID, TSH #### [facility] [address] [place] [address] Dr. Hugh Landis Basophils/100 WBC (Bld) 0.6 % Normal 0.2-2.0 [facility] Comment on above: Performed By: #### C MP, LIPID, TSH #### [facility] [address] [place] [address] Dr. Hugh Landis EO # 0.2 103/ul Normal 0.0-0.7 [facility] Comment on above: Performed By: #### C MP, LIPID, TSH #### [facility] [address] [place] [address] Dr. Hugh Landis Eosinophils/100 WBC (Bld) 2.2 % Normal 0.9-7.0 [facility] Comment on above: Performed By: #### C MP, LIPID, TSH #### [facility] [address] [place] [address] Dr. Hugh Landis Erythrocyte distribution width (RBC) [Ratio] 13.4 % Normal 11.0-15.0 [facility] Comment on above: Performed By: #### C MP, LIPID, TSH #### [facility] [address] [place] [address] Dr. Hugh Landis Hematocrit (Bld) [Volume fraction] 38.2 % Critically low 42.0-54.0 [facility] Comment on above: Performed By: #### C MP, LIPID, TSH #### [facility] [address] [place] [address] Dr. Hugh Landis Hemoglobin (Bld) [Mass/Vol] 11.8 g/dL Critically low 14.0-18.0 [facility] Comment on above: Performed By: #### C MP, LIPID, TSH #### [facility] [address] [place] [address] Dr. Hugh Landis IG # 0.03 10e3/ul Normal 0.00-0.03 [facility] Comment on above: Performed By: #### C MP, LIPID, TSH #### [facility] [address] [place] [address] Dr. Hugh Landis IG % 0.4 % Normal 0.0-0.5 [facility] Comment on above: Performed By: #### C MP, LIPID, TSH #### [facility] [address] [place] [address] Dr. Hugh Landis LYMPH # 1.0 103/ul Critically low 1.2-3.8 [facility] Comment on above: Performed By: #### C MP, LIPID, TSH #### [facility] [address] [place] [address] Dr. Hugh Landis Lymphocytes/100 WBC (Bld) 14.9 % Critically low 20.5-60.0 [facility] Comment on above: Performed By: #### C MP, LIPID, TSH #### [facility] [address] [place] [address] Dr. Hugh Landis MANUAL DIFF REQ NO Normal [facility] Comment on above: Performed By: #### C MP, LIPID, TSH #### [facility] [address] [place] [address] Dr. Hugh Landis MCH (RBC) [Entitic mass] 28.5 pg Normal 25.9-34.0 [facility] Comment on above: Performed By: #### C MP, LIPID, TSH #### [facility] [address] [place] [address] Dr. Hugh Landis MCHC (RBC) [Mass/Vol] 30.9 g/dL Normal 29.9-35.2 [facility] Comment on above: Performed By: #### C MP, LIPID, TSH #### [facility] [address] [place] [address] Dr. Hugh Landis MCV (RBC) [Entitic vol] 92.3 fL Normal 80.0-94.0 [facility] Comment on above: Performed By: #### C MP, LIPID, TSH #### [facility] [address] [place] [address] Dr. Hugh Landis MONO # 0.7 103/ul Normal 0.3-0.8 [facility] Comment on above: Performed By: #### C MP, LIPID, TSH #### [facility] [address] [place] [address] Dr. Hugh Landis Monocytes/100 WBC (Bld) 10.6 % Normal 1.7-12.0 [facility] Comment on above: Performed By: #### C MP, LIPID, TSH #### [facility] [address] [address] [address] Hugh Landis NEUT # 4.9 103/ul Normal 1.4-6.5 [facility] Comment on above: Performed By: #### C MP, LIPID, TSH #### [facility] [address] [place] [address] Dr. Hugh Landis Neutrophils/100 WBC (Bld) 71.3 % Normal 43.0-75.0 [facility] Comment on above: Performed By: #### C MP, LIPID, TSH #### [facility] [address] [place] [address] Dr. Hugh Landis Platelet mean volume (Bld) [Entitic vol] 9.4 fL Critically low 9.5-13.5 [facility] Comment on above: Performed By: #### C MP, LIPID, TSH #### [facility] [address] [place] [address] Dr. Hugh Landis PLT 249 103/ul Normal 150-450 [facility] Comment on above: Performed By: #### C MP, LIPID, TSH #### [facility] [address] [place] [address] Dr. Hugh Landis RBC 4.14 106/ul Critically low 4.70-6.10 [facility] Comment on above: Performed By: #### C MP, LIPID, TSH #### [facility] [address] [place] [address] Dr. Hugh Landis WBC 6.9 103/ul Normal 4.0-11.0 [facility] Comment on above: Performed By: #### C MP, LIPID, TSH #### [facility] [address] [place] [address] Dr. Hugh Landis FERRITINon 08-08-2021 Ferritin [Mass/Vol] 154.0 ng/mL Normal 26.0-388.0 [facility] Comment on above: Performed By: #### C MP, LIPID, TSH #### [facility] [address] [place] [address] Dr. Hugh Landis GLYCOHEMOGLOBIN A1Con 2021 ADA RECOMMENDATION SEE BELOW Normal [facility] Comment on above: Result Comment: ADA RECOMMENDED LIMIT 4.0 - 6.0 ADA THERAPEUTIC TARGET < 7.0 ACTION SUGGESTED > 7.0 Performed By: #### P T #### [facility] [address] [place] [address] Dr. Hugh Landis Glucose [Mass/Vol] 140 mg/dL Normal [facility] Comment on above: Performed By: #### P T #### [facility] [address] [address] [address] Hugh Landis HbA1c (Bld) [Mass fraction] 6.5 % Critically high 4.5-6.2 [facility] Comment on above: Performed By: #### P T #### [facility] [address] [place] [address] Dr. Hugh Landis IRON AND TIBCon 08-08-2021 % SATURATION 13.6 % Normal [facility] Comment on above: Performed By: #### C MP, LIPID, TSH #### [facility] [address] [place] [address] Dr. Hugh Landis Iron [Mass/Vol] 45.0 ug/dL Critically low 65.0-175.0 [facility] Comment on above: Performed By: #### C MP, LIPID, TSH #### [facility] [address] [place] [address] Dr. Hugh Landis TIBC DIRECT 332.0 ug/dL Normal 250.0-450.0 [facility] Comment on above: Performed By: #### C MP, LIPID, TSH #### [facility] [address] [place] [address] Dr. Hugh Landis LIPID PROFILEon 08-08-2021 CHOL-HDL RATIO NORM SEE BELOW Normal [facility] Comment on above: Result Comment: 3.3 - 4.4 LOW RISK 4.4 - 7.1 AVERAGE RISK 7.1 - 11.0 MODERATE RISK >11.0 HIGH RISK Performed By: #### C MP, LIPID, TSH #### [facility] [address] [place] [address] Dr. Hugh Landis Cholesterol [Mass/Vol] 187 mg/dL Normal <=200 [facility] Comment on above: Performed By: #### C MP, LIPID, TSH #### [facility] [address] [address] [address] Hugh Landis Cholesterol in HDL [Mass/Vol] 51 mg/dL Normal 40-60 [facility] Comment on above: Performed By: #### C MP, LIPID, TSH #### [facility] [address] [address] [address] Hugh Landis Cholesterol in LDL [Mass/Vol] 101.8 mg/dL Normal [facility] Comment on above: Performed By: #### C MP, LIPID, TSH #### [facility] [address] [address] [address] Hugh Landis Cholesterol.total/C holesterol in HDL [Mass ratio] 3.7 {ratio} Normal [facility] Comment on above: Performed By: #### C MP, LIPID, TSH #### [facility] [address] [address] [address] Hugh Landis HDL NORMAL > or = 60 mg/dl - LO W CARDIOVASCULAR RISK <40 mg/dl - HIGH CARDIOVASCULAR RISK Normal [facility] Comment on above: Performed By: #### C MP, LIPID, TSH #### [facility] [address] [address] [address] Hugh Landis LDL CALC NORMAL SEE BELOW Normal [facility] Comment on above: Result Comment: <100 mg/dl OPTIMAL 100 - 129 mg/dl NEAR OR ABOVE OPTIMAL 130 - 159 mg/dl BORDERLINE HIGH 160 - 189 mg/dl HIGH >190 mg/dl VERY HIGH Performed By: #### C MP, LIPID, TSH #### [facility] [address] [address] [address] Hugh Landis Triglyceride [Mass/Vol] 171 mg/dL Critically high <=150 [facility] Comment on above: Performed By: #### C MP, LIPID, TSH #### [facility] [address] [address] [address] Hugh Landis VLDL CALC 34.2 mg/dL Normal [facility] Comment on above: Performed By: #### C MP, LIPID, TSH #### [facility] [address] [address] [address] Hugh Landis PROF 14(COMP METB)on 022 Albumin [Mass/Vol] 3.6 g/dL Normal 3.4-5.0 [facility] Comment on above: Performed By: #### C MP, LIPID, TSH #### [facility] [address] [address] [address] Hugh Landis Albumin/Globulin [Mass ratio] 0.8 {ratio} Normal [facility] Comment on above: Performed By: #### C MP, LIPID, TSH #### [facility] [address] [address] [address] Hugh Landis ALP [Catalytic activity/Vol] 64 U/L Normal 46-116 [facility] Comment on above: Performed By: #### C MP, LIPID, TSH #### [facility] [address] [place] [address] Dr. Hugh Landis ALT [Catalytic activity/Vol] 28 U/L Normal 16-63 [facility] Comment on above: Performed By: #### C MP, LIPID, TSH #### [facility] [address] [address] [address] Hugh Landis Anion gap [Moles/Vol] 15.0 mmol/L Normal [facility] Comment on above: Performed By: #### C MP, LIPID, TSH #### [facility] [address] [address] [address] Hugh Landis AST [Catalytic activity/Vol] 14 U/L Critically low 15-37 [facility] Comment on above: Performed By: #### C MP, LIPID, TSH #### [facility] [address] [address] [address] Hugh Landis Bilirubin [Mass/Vol] 0.5 mg/dL Normal 0.2-1.0 [facility] Comment on above: Performed By: #### C MP, LIPID, TSH #### [facility] [address] [address] [address] Hugh Landis Calcium [Mass/Vol] 9.6 mg/dL Normal 8.5-10.1 [facility] Comment on above: Performed By: #### C MP, LIPID, TSH #### [facility] [address] [address] [address] Hugh Landis Chloride [Moles/Vol] 105 mmol/L Normal 98-107 [facility] Comment on above: Performed By: #### C MP, LIPID, TSH #### [facility] [address] [place] [address] Dr. Hugh Landis CO2 [Moles/Vol] 23.5 mmol/L Normal 21.0-32.[address] [facility] Comment on above: Performed By: #### C MP, LIPID, TSH #### [facility] [address] [place] [address] Dr. Hugh Landis Creatinine [Mass/Vol] 2.69 mg/dL Critically high 0.70-1.30 [facility] Comment on above: Performed By: #### C MP, LIPID, TSH #### [facility] [address] [place] [address] Dr. Hugh Landis EGFR-AF GUAMANIAN 30 mL/min/1.73m2 Critically low >=60 [facility] Comment on above: Performed By: #### C MP, LIPID, TSH #### [facility] [address] [place] [address] Dr. Hugh Landis EGFR-NON AF GUAMANIAN 25 mL/min/1.73m2 Critically low >=60 [facility] Comment on above: Performed By: #### C MP, LIPID, TSH #### [facility] [address] [place] [address] Dr. Hugh Landis Globulin (S) [Mass/Vol] 4.3 g/dL Normal [facility] Comment on above: Performed By: #### C MP, LIPID, TSH #### [facility] [address] [place] [address] Dr. Hugh Landis Glucose [Mass/Vol] 80 mg/dL Normal 74-106 [facility] Comment on above: Performed By: #### C MP, LIPID, TSH #### [facility] [address] [place] [address] Dr. Hugh Landis Potassium [Moles/Vol] 5.5 mmol/L Critically high 3.5-5.1 [facility] Comment on above: Performed By: #### C MP, LIPID, TSH #### [facility] [address] [place] [address] Dr. Hugh Landis Protein [Mass/Vol] 7.9 g/dL Normal 6.4-8.2 [facility] Comment on above: Performed By: #### C MP, LIPID, TSH #### [facility] [address] [place] [address] Dr. Hugh Landis Sodium [Moles/Vol] 138 mmol/L Normal 136-145 [facility] Comment on above: Performed By: #### C MP, LIPID, TSH #### [facility] [address] [place] [address] Dr. Hugh Landis Urea nitrogen [Mass/Vol] 47.0 mg/dL Critically high 7.0-18.0 [facility] Comment on above: Performed By: #### C MP, LIPID, TSH #### [facility] [address] [place] [address] Dr. Hugh Landis Urea nitrogen/Creatinine [Mass ratio] 17.5 mg/mg Normal [facility] Comment on above: Performed By: #### C MP, LIPID, TSH #### [facility] [address] [place] [address] Dr. Hugh Landis TSHon 08-08-2021 TSH 1.069 uIU/mL Normal 0.358-3.740 [facility] Comment on above: Performed By: #### C MP, LIPID, TSH #### [facility] [address] [place] [address] Dr. Hugh Landis TSH RANGE SEE BELOW Normal [facility] Comment on above: Result Comment: <0.3 4 UIU/ml HYPERTHYROID 0.34-5.60 UIU/ml EUTHYROID >5.60 UIU/ml HYPOTHYROID Performed By: #### C MP, LIPID, TSH #### [facility] [address] [place] [address] Dr. Hugh Landis VITAMIN B12on 08-08-2021 Cobalamin (Vitamin B12) [Mass/Vol] 336.0 pg/mL Normal 193.0-986.0 [facility] Comment on above: Performed By: #### C MP, LIPID, TSH #### [facility] [address] [address] [address] Hugh Landis VITAMIN D 25 OHon 08-08-2021 VIT D 25-OH 36.6 ng/mL Normal [facility] Comment on above: Performed By: #### C MP, LIPID, TSH #### [facility] [address] [address] [address] Hugh Landis VIT D RANGES SEE BELOW Normal [facility] Comment on above: Result Comment: <20 ng/mL Vit D deficient 20 - <30 ng/mL Vit D insufficient 30 - 100 ng/mL Vit D sufficient >100 ng/mL Potential Toxicity Performed By: #### C MP, LIPID, TSH #### [facility] [address] [address] [address] Hugh Landis KNEE RIGHT 3 Son 2 KNEE RIGHT 3 [facility] Department of Radiology [address] [place] [id number] ======== Patient Name: SUKHDEEP SIMENTAL : 1965 Sex: M Age: Race: White Pt. Location: Patient Status: D Ordered Date: 07/21/2021 3:35:00 PM Completed Date: 07/21/2021 03:37 PM Requesting Provider: PAYTON HELM Attending Provider: PAYTON HELM Report Copy To: Signs & Symptoms: M17.11 Unilateral primary osteoarthritis, right knee I10 History: Comments: Evaluate Exam: KNEE RIGHT 3 VWS ======== KNEE RIGHT 3 VWS 07/21/2021 3:37 PM CLINICAL INDICATIONS: M17.11 Unilateral primary osteoarthritis, right knee I10 TECHNOLOGIST COMMENTS: Patient complains of right knee pain with history of multiple surgeries. QUESTION FOR THE RADIOLOGIST: Evaluate PROTOCOL: AP,Lateral and Tangential views were obtained. COMPARISON: December 15, 2020 FINDINGS: Total knee arthroplasty with patellar resurfacing identified. There has been a significant increase in the soft tissues between the patellar and the femoral component suggesting a joint effusion. In addition the patella appears low lying with a measurement of approximately 35 mm on the tibial tuberosity as compared to 63 mm on the prior study. IMPRESSION: Significant widening of the patellofemoral articulation with large joint effusion. Low-lying patella suggesting quadriceps tendon disruption. Electronically signed: Gina Richmond. Transcribed by: [email or web address], User Resident: Electronically Signed by: GINA RICHMOND @ 07/23/2021 10:50 PM Normal [facility] Comment on above: Order Comment: Evalu ate CBCon 07-18-2021 Erythrocyte distribution width (RBC) [Ratio] 13.5 % Normal 11.8-14.4 [facility] Comment on above: Performed By: #### C BC, PT, PTT, BMP #### [employer] [address] [place] [id number] Order Detailer: Good Melendez MD #### ANICOT #### [facility] [address] [place] [address] Order Detailer: Troy Link MD Hematocrit (Bld) [Volume fraction] 39.1 % Low 40.7-50.3 [facility] Comment on above: Performed By: #### C BC, PT, PTT, BMP #### [employer] [address] [place] [id number] Order Detailer: Good Melendez MD #### ANICOT #### [facility] [address] [place], [place] [id number] Order Detailer: Troy Link MD Hemoglobin (Bld) [Mass/Vol] 12.3 g/dL Low 13.0-17.0 [facility] Comment on above: Performed By: #### C BC, PT, PTT, BMP #### [address] [address] Order Detailer: Good Melendez MD #### ANICOT #### [facility] [address] [place], [place] [id number] Order Detailer: Troy Link MD MCH (RBC) [Entitic mass] 28.8 pg Normal 25.2-33.5 [facility] Comment on above: Performed By: #### C BC, PT, PTT, BMP #### [address] [address] Order Detailer: Good Melendez MD #### ANICOT #### [facility] [address] [place] [address] Order Detailer: Troy Link MD MCHC (RBC) [Mass/Vol] 31.5 g/dL Normal 28.4-34.8 [facility] Comment on above: Performed By: #### C BC, PT, PTT, BMP #### [address] [address] Order Detailer: Good Melendez MD #### ANICOT #### [facility] [address] [place] [address] Order Detailer: Troy Link MD MCV (RBC) [Entitic vol] 91.6 fL Normal 82.6-102.9 [facility] Comment on above: Performed By: #### C BC, PT, PTT, BMP #### [address] [id number] Order Detailer: Good Melendez MD #### ANICOT #### [facility] [address] [place] [address] Order Detailer: Troy Link MD NRBC Automated 0.0 per 100 WBC Normal 0.0 [facility] Comment on above: Performed By: #### C BC, PT, PTT, BMP #### [address] [id number] Order Detailer: Good Melendez MD #### ANICOT #### [facility] [address] [place], [place] [id number] Order Detailer: Troy Link MD Platelet mean volume (Bld) [Entitic vol] 9.7 fL Normal 8.1-13.5 [facility] Comment on above: Performed By: #### C BC, PT, PTT, BMP #### [address] [id number] Order Detailer: Good Melendez MD #### ANICOT #### [facility] [address] [place] [address] Order Detailer: Troy Link MD Platelets (Bld) [#/Vol] 190 10*3/uL Normal 138-453 [facility] Comment on above: Performed By: #### C BC, PT, PTT, BMP #### [address] [address] Order Detailer: Good Melendez MD #### ANICOT #### [facility] [address] [place] [address] Order Detailer: Troy Link MD RBC (Bld) [#/Vol] 4.27 10*6/uL Normal 4.21-5.77 [facility] Comment on above: Performed By: #### C BC, PT, PTT, BMP #### [address] [address] Order Detailer: Good Melendez MD #### ANICOT #### [facility] [address] [place] [address] Order Detailer: Troy Link MD WBC (Bld) [#/Vol] 8.7 10*3/uL Normal 3.5-11.3 [facility] Comment on above: Performed By: #### C BC, PT, PTT, BMP #### [facility] [address] [place] [address] Order Detailer: Good Melendez MD #### ANICOT #### [facility] [address] [place] [address] Order Detailer: Troy Link MD APTTon 07-17-2021 aPTT Coag (Bld) [Time] 20.8 s Normal 20.5-30.5 [facility] Comment on above: Result Comment: IV Heparin Therapy Range: 48.6-77.8 Performed By: #### C BC, PT, PTT, BMP #### [address] [address] Order Detailer: Good Melendez MD #### ANICOT #### [facility] [address] [place], [place] [id number] Order Detailer: Troy Link MD aPTT Coag (Bld) [Time] 37.9 s High 20.5-30.5 [facility] Comment on above: Result Comment: IV Heparin Therapy Range: 48.6-77.8 Performed By: #### C BC, PT, PTT, BMP #### [address] [address] Order Detailer: Good Melendez MD #### ANICOT #### [facility] [address] [place], [place] [id number] Order Detailer: Troy Link MD aPTT Coag (Bld) [Time] 78.1 s High 20.5-30.5 [facility] Comment on above: Result Comment: IV Heparin Therapy Range: 48.6-77.8 Performed By: #### C BC, PT, PTT, BMP #### [facility] [place] [address] Order Detailer: Good Melendez MD #### ANICOT #### [facility] [address] [place], [place] [id number] Order Detailer: Troy Link MD Basic Metab w/rfx MGon 07-17 (cont.) Normal [facility] Comment on above: Result Comment: Aver age GFR for 50-59 years old: 93 mL/min/1.73sq m Chronic Kidney Disease: <60 mL/min/1.73sq m Kidney failure: <15 mL/min/1.73sq m eGFR calculated using average adult body mass. Additional eGFR calculator available at: http://www.[employer]/multiple_crcl_2012.htm Performed By: #### C BC, PT, PTT, BMP #### [facility] [employer] [address] [place] [address] Order Detailer: Good Melendez MD #### ANICOT #### [facility] [address] [place], [place] [id number] Order Detailer: Troy Link MD Anion gap [Moles/Vol] 9 mmol/L Normal 9-17 [facility] Comment on above: Performed By: #### C BC, PT, PTT, BMP #### [facility] [employer] [facility] [place] [address] Order Detailer: Good Melendez MD #### ANICOT #### [facility] [address] [place], [place] [id number] Order Detailer: Troy Link MD Calcium [Mass/Vol] 9.3 mg/dL Normal 8.6-10.4 [facility] Comment on above: Performed By: #### C BC, PT, PTT, BMP #### [address] [id number] Order Detailer: Good Melendez MD #### ANICOT #### [facility] [address] [place], [place] [id number] Order Detailer: Troy Link MD Chloride [Moles/Vol] 106 mmol/L Normal 98-107 [facility] Comment on above: Performed By: #### C BC, PT, PTT, BMP #### [address] [id number] Order Detailer: Good Melendez MD #### ANICOT #### [address] [address] Order Detailer: Troy Link MD CO2 [Moles/Vol] 23 mmol/L Normal 20-31 [facility] Comment on above: Performed By: #### C BC, PT, PTT, BMP #### [address] [id number] Order Detailer: Good Melendez MD #### ANICOT #### [facility] [address] [place] [id number] Order Detailer: Troy Link MD Creatinine [Mass/Vol] 1.40 mg/dL High 0.70-1.20 [facility] Comment on above: Performed By: #### C BC, PT, PTT, BMP #### [address] [id number] Order Detailer: Good Melendez MD #### ANICOT #### [facility] [address] [place] [address] Order Detailer: Troy Link MD GFR, Amer >60 Normal >60 [facility] Comment on above: Performed By: #### C BC, PT, PTT, BMP #### [facility] [address] [place] [address] Order Detailer: Good Melendez MD #### ANICOT #### [facility] [address] [place] [address] Order Detailer: Troy Link MD GFR,non Amer 52 mL/min Low >60 [facility] Comment on above: Performed By: #### C BC, PT, PTT, BMP #### [facility] [address] [place] [address] Order Detailer: Good Melendez MD #### ANICOT #### [address] [address] Order Detailer: Troy Link MD Glucose [Mass/Vol] 170 mg/dL High 70-99 [facility] Comment on above: Performed By: #### C BC, PT, PTT, BMP #### [address] [address] Order Detailer: Good Melendez MD #### ANICOT #### [address] [address] Order Detailer: Troy Link MD Potassium [Moles/Vol] 4.6 mmol/L Normal 3.7-5.3 [facility] Comment on above: Performed By: #### C BC, PT, PTT, BMP #### [facility] [employer] [address] [place] [address] Order Detailer: Good Melendez MD #### ANICOT #### [facility] [address] [place] [address] Order Detailer: Troy Link MD Sodium [Moles/Vol] 138 mmol/L Normal 135-144 [facility] Comment on above: Performed By: #### C BC, PT, PTT, BMP #### [address] [address] Order Detailer: Good Melendez MD #### ANICOT #### [facility] [address] [place] [address] Order Detailer: Troy Link MD Urea nitrogen [Mass/Vol] 33 mg/dL High 6-20 [facility] Comment on above: Performed By: #### C BC, PT, PTT, BMP #### [address] [address] Order Detailer: Good Melendez MD #### ANICOT #### [facility] [address] [place] [address] Order Detailer: Troy Link MD Basic Metabolic Profon 07-17 (cont.) Normal [facility] Comment on above: Result Comment: Aver age GFR for 50-59 years old: 93 mL/min/1.73sq m Chronic Kidney Disease: <60 mL/min/1.73sq m Kidney failure: <15 mL/min/1.73sq m eGFR calculated using average adult body mass. Additional eGFR calculator available at: http://www.[employer].com/multiple_crcl_2011.htm Performed By: #### C BC, PT, PTT, BMP #### [address] [address] Order Detailer: Good Melendez MD #### ANICOT #### [facility] [address] [place] [address] Order Detailer: Troy Link MD Anion gap [Moles/Vol] 8 mmol/L Low 9-17 [facility] Comment on above: Performed By: #### C BC, PT, PTT, BMP #### [address] [address] Order Detailer: Good Melendez MD #### ANICOT #### [facility] [address] [place] [address] Order Detailer: Troy Link MD Calcium [Mass/Vol] 9.5 mg/dL Normal 8.6-10.4 [facility] Comment on above: Performed By: #### C BC, PT, PTT, BMP #### [address] [address] Order Detailer: Good Melendez MD #### ANICOT #### [facility] [address] [place] [address] Order Detailer: Troy Link MD Chloride [Moles/Vol] 104 mmol/L Normal 98-107 [facility] Comment on above: Performed By: #### C BC, PT, PTT, BMP #### [address] [address] Order Detailer: Good Melendez MD #### ANICOT #### [facility] [address] [place] [id number] Order Detailer: Troy Link MD CO2 [Moles/Vol] 23 mmol/L Normal 20-31 [facility] Comment on above: Performed By: #### C BC, PT, PTT, BMP #### [address] [address] Order Detailer: Good Melendez MD #### ANICOT #### [facility] [address] [place] [address] Order Detailer: Troy Link MD Creatinine [Mass/Vol] 1.34 mg/dL High 0.70-1.20 [facility] Comment on above: Performed By: #### C BC, PT, PTT, BMP #### [address] [address] Order Detailer: Good Melendez MD #### ANICOT #### [facility] [address] [place], [place] [id number] Order Detailer: Troy Link MD GFR, Amer >60 Normal >60 [facility] Comment on above: Performed By: #### C BC, PT, PTT, BMP #### [address] [id number] Order Detailer: Good Melendez MD #### ANICOT #### [facility] [address] [place], [place] [id number] Order Detailer: Troy Link MD GFR,non Amer 55 mL/min Low >60 [facility] Comment on above: Performed By: #### C BC, PT, PTT, BMP #### [address] [phone] Order Detailer: Good Melendez MD #### ANICOT #### [facility] [address] [place], [place] [id number] Order Detailer: Troy Link MD Glucose [Mass/Vol] 136 mg/dL High 70-99 [facility] Comment on above: Performed By: #### C BC, PT, PTT, BMP #### [address] [address] Order Detailer: Good Melendez MD #### ANICOT #### [facility] [address] [place], [place] [id number] Order Detailer: Troy Link MD Potassium [Moles/Vol] 4.7 mmol/L Normal 3.7-5.3 [facility] Comment on above: Performed By: #### C BC, PT, PTT, BMP #### [address] [id number] Order Detailer: Good Melendez MD #### ANICOT #### [facility] [address] [place], [place] [id number] Order Detailer: Troy Link MD Sodium [Moles/Vol] 135 mmol/L Normal 135-144 [facility] Comment on above: Performed By: #### C BC, PT, PTT, BMP #### [facility] [address] [place] [address] Order Detailer: Good Melendez MD #### ANICOT #### [facility] [address] [place], [place] [id number] Order Detailer: Troy Link MD Urea nitrogen [Mass/Vol] 31 mg/dL High 6-20 [facility] Comment on above: Performed By: #### C BC, PT, PTT, BMP #### [facility] [address] [place] [address] Order Detailer: Good Melendez MD #### ANICOT #### [facility] [address] [place], [place] [id number] Order Detailer: Troy Link MD Fibrinogenon 07-17-2021 Fibrinogen 404 mg/dL Normal 140-420 [facility] Comment on above: Performed By: #### C BC, PT, PTT, BMP #### [address] [address] Order Detailer: Good Melendez MD #### ANICOT #### [facility] [address] [place], [place] [id number] Order Detailer: Troy Link MD Fibrinogen 395 mg/dL Normal 140-420 [facility] Comment on above: Performed By: #### C BC, PT, PTT, BMP #### [facility] [address] [place] [address] Order Detailer: Good Melendez MD #### ANICOT #### [facility] [address] [place], [place] [id number] Order Detailer: Troy Link MD Hemoglobin A1Con 07-17-2021 Glucose [Mass/Vol] 169 mg/dL Normal [facility] Comment on above: Result Comment: The ADA and AACC recommend providing the estimated average glucose result to permit better patient understanding of their HBA1c result. Performed By: #### C BC, PT, PTT, BMP #### [facility] [address] [place] [address] Order Detailer: Good Melendez MD #### ANICOT #### [facility] [address] [place], [place] [id number] Order Detailer: Troy Link MD HbA1c (Bld) [Mass fraction] 7.5 % High 4.0-6.0 [facility] Comment on above: Performed By: #### C BC, PT, PTT, BMP #### [facility] [employer] [address] [place] [address] Order Detailer: Good Melendez MD #### ANICOT #### [address] [id number] Order Detailer: Troy Link MD PTon 07-17-2021 INR Coag (PPP) [Relative time] 1.2 {INR} Normal [facility] Comment on above: Result Comment: Therapeutic Range: Moderate Anticoagulant Intensity: INR = 2.0-3.0 High Anticoagulant Intensity: INR = 2.5-3.5 Performed By: #### C BC, PT, PTT, BMP #### [facility] [employer] [address] [place] [address] Order Detailer: Good Melendez MD #### ANICOT #### [facility] [address] [place], [place] [id number] Order Detailer: Troy Link MD PT Coag (PPP) [Time] 12.6 s High 9.1-12.3 [facility] Comment on above: Performed By: #### C BC, PT, PTT, BMP #### [facility] [employer] [address] [place] [address] Order Detailer: Good Melendez MD #### ANICOT #### [facility] [address] [place], [place] [id number] Order Detailer: Troy Link MD Troponinon 07-17-2021 Troponin, High Sens 38 ng/L High 0-22 [facility] Comment on above: Result Comment: High Sensitivity Troponin values cannot be compared with other Troponin methodologies. Patients with high levels of Biotin oral intake (i.e >5mg/day) may have falsely decreased Troponin levels. Samples collected within 8 hours of biotin intake may require additional information for diagnosis. Performed By: #### C BC, PT, PTT, BMP #### [facility] [address] [place] [address] Order Detailer: Good Melendez MD #### ANICOT #### [facility] [address] [place], [place] [id number] Order Detailer: Troy Link MD APTTon 07-16-2021 aPTT Coag (Bld) [Time] 51.1 s High 20.5-30.5 [facility] Comment on above: Result Comment: IV Heparin Therapy Range: 48.6-77.8 Performed By: #### C BC, PT, PTT, BMP #### [facility] [address] [place] [address] Order Detailer: Good Melendez MD #### ANICOT #### [facility] [address] [place], [place] [id number] Order Detailer: Troy Link MD aPTT Coag (Bld) [Time] 31.1 s High 20.5-30.5 [facility] Comment on above: Result Comment: IV Heparin Therapy Range: 48.6-77.8 Performed By: #### C BC, PT, PTT, BMP #### [facility] [address] [place] [address] Order Detailer: Good Melendez MD #### ANICOT #### [facility] [address] [place], [place] [id number] Order Detailer: Troy Link MD Brain Natri. Peptideon 07-16 Natriuretic peptide B (Bld) [Mass/Vol] 1492 pg/mL High <300 [facility] Comment on above: Result Comment: An age-independent cutoff point of 300 pg/ml has a 98% negative predictive value excluding acute heart failure. Performed By: #### C BC, PT, PTT, BMP #### [address] [address] Order Detailer: Good Melendez MD #### ANICOT #### [facility] [address] [place], [place] [id number] Order Detailer: Troy Link MD [facility] Erythrocyte distribution width (RBC) [Ratio] 13.6 % Normal 11.8-14.4 [facility] Comment on above: Performed By: #### C BC, PT, PTT, BMP #### [facility] [employer] [address] [place] [address] Order Detailer: Good Melendez MD #### ANICOT #### [facility] [address] [place], [place] [id number] Order Detailer: Troy Link MD Hematocrit (Bld) [Volume fraction] 40.3 % Low 40.7-50.3 [facility] Comment on above: Performed By: #### C BC, PT, PTT, BMP #### [facility] [employer] [address] [place] [address] Order Detailer: Good Melendez MD #### ANICOT #### [facility] [address] [place], [place] [id number] Order Detailer: Troy Link MD Hemoglobin (Bld) [Mass/Vol] 13.0 g/dL Normal 13.0-17.0 [facility] Comment on above: Performed By: #### C BC, PT, PTT, BMP #### [facility] [employer] [address] [place] [address] Order Detailer: Good Melendez MD #### ANICOT #### [facility] [address] [place] [address] Order Detailer: Troy Link MD MCH (RBC) [Entitic mass] 28.7 pg Normal 25.2-33.5 [facility] Comment on above: Performed By: #### C BC, PT, PTT, BMP #### [address] [address] Order Detailer: Good Melendez MD #### ANICOT #### [address] [address] Order Detailer: Troy Link MD MCHC (RBC) [Mass/Vol] 32.3 g/dL Normal 28.4-34.8 [facility] Comment on above: Performed By: #### C BC, PT, PTT, BMP #### [address] [address] Order Detailer: Good Melendez MD #### ANICOT #### [address] [address] Order Detailer: Troy Link MD MCV (RBC) [Entitic vol] 89.0 fL Normal 82.6-102.9 [facility] Comment on above: Performed By: #### C BC, PT, PTT, BMP #### [address] [address] Order Detailer: Good Melendez MD #### ANICOT #### [facility] [address] [place] [address] Order Detailer: Troy Link MD NRBC Automated 0.0 per 100 WBC Normal 0.0 [facility] Comment on above: Performed By: #### C BC, PT, PTT, BMP #### [facility] [address] [place] [address] Order Detailer: Good Melendez MD #### ANICOT #### [facility] [address] [place] [address] Order Detailer: Troy Link MD Platelet mean volume (Bld) [Entitic vol] 9.6 fL Normal 8.1-13.5 [facility] Comment on above: Performed By: #### C BC, PT, PTT, BMP #### [address] [address] Order Detailer: Good Melendez MD #### ANICOT #### [facility] [address] [place], [place] [id number] Order Detailer: Troy Link MD Platelets (Bld) [#/Vol] 203 10*3/uL Normal 138-453 [facility] Comment on above: Performed By: #### C BC, PT, PTT, BMP #### [address] [id number] Order Detailer: Good Melendez MD #### ANICOT #### [facility] [address] [place], [place] [id number] Order Detailer: Troy Link MD RBC (Bld) [#/Vol] 4.53 10*6/uL Normal 4.21-5.77 [facility] Comment on above: Performed By: #### C BC, PT, PTT, BMP #### [address] [address] Order Detailer: Good Melendez MD #### ANICOT #### [facility] [address] [place], [place] [id number] Order Detailer: Troy Link MD WBC (Bld) [#/Vol] 6.8 10*3/uL Normal 3.5-11.3 [facility] Comment on above: Performed By: #### C BC, PT, PTT, BMP #### [facility] [address] [place] [address] Order Detailer: Good Melendez MD #### ANICOT #### [facility] [address] [place], [place] [id number] Order Detailer: Troy Link MD Troponinon 07-16-2021 Troponin, High Sens 59 ng/L Critically high 0- [facility] Comment on above: Result Comment: High Sensitivity Troponin values cannot be compared with other Troponin methodologies. Patients with high levels of Biotin oral intake (i.e >5mg/day) may have falsely decreased Troponin levels. Samples collected within 8 hours of biotin intake may require additional information for diagnosis. Performed By: #### C BC, PT, PTT, BMP #### [facility] [place] [address] Order Detailer: Good Melendez MD #### ANICOT #### [facility] [address] [place], [place] [id number] Order Detailer: Troy Link MD EKG 12 LeadOrdered By: Matias Varela on 05-26-2021 Atrial Rate 108 BPM [employer] Phone: P [place] -96 degrees [employer] Phone: P-R Interval 192 ms [employer] Phone: Q-T Interval 348 ms [employer] Phone: QRS Duration 94 ms [employer] Phone: QTc Calculation (Bazett) 466 ms [employer] Phone: R [place] -116 degrees [employer] Phone: T [place] -114 degrees [employer] Phone: Ventricular Rate 108 BPM [employer] Work Phone: [employer] Phone: EKG 12 Leadon 05-26-2021 Arm lead reversal Sinus Tachycardia V Leads placement error Repeat ECG When compared with ECG of 08-MAY-2021 11:42, Significant changes have occurred [facility] Matias Hernandez MD - 05/26/2021 Arm lead reversal Sinus Tachycardia V Leads placement error Repeat ECG When compared with ECG of 08-MAY-2021 11:42, Significant changes have occurred [employer] Work Phone: SURGICAL PATHOLOGY REPORTon 05-26-2021 Surgical Pathology Report -- Diagnosis -- STOMACH, SLEEVE GASTRECTOMY: - NORMAL GASTRIC MUCOSA AND WALL. Lucio Angeles M.D. Electronically Signed Out /05/26/2021 Clinical Information Pre-op Diagnosis: MORBID OBESITY, TYPE 2 DIABETES, HYPERTENSION Operative Findings: GASTRIC REMNANT Operation Performed: XI ROBOTIC LAPAROSCOPIC GASTRECTOMY SLEEVE, EGD Source of Specimen A: GASTRIC REMNANT Gross Description SUKHDEEP SIMENTAL, GASTRIC REMNANT 21.0 x 4.2 x 2.5 cm portion of stomach with a staple line that runs along its length. The serosa is pink-bundy and the mucosa is pink-red with no areas of granularity or masses. [employer] sections 1cs. tm Microscopic Description Sections of gastric wall show lamina propria without evidence of significant inflammation. There is no evidence of intestinal metaplasia or dysplasia. There is no evidence of organisms suspicious for Helicobacter with the routine H&E stain. SURGICAL PATHOLOGY CONSULTATION Patient Name: SUKHDEEP SIMENTAL [facility] Rec: [id number] Path Number: [id number] [employer] [facility] ANATOMIC PATHOLOGY [address] [place] [address]. [place], [place] [address] [facility] Basic Metabolic Panelon 03-3 Anion gap [Moles/Vol] 10 mmol/L 9 - 17 mmol/L [employer] Calcium [Mass/Vol] 9.1 mg/dL 8.6 - 10. 4 mg/dL [employer] Chloride [Moles/Vol] 106 mmol/L 98 - 107 mmol/L [employer] CO2 [Moles/Vol] 23 mmol/L 20 - 31 mmol/L [facility] Creatinine [Mass/Vol] 1.1 mg/dL 0.70 - 1.20 mg/dL [facility] GFR >60 >60 mL/min [facility] GFR Non- >60 >60 mL/min [facility] GFR/1.73 sq M.predicted MDRD (S/P/Bld) [Vol rate/Area] [facility] Comment on above: Average GFR for 50-5 9 years old: 93 mL/min/1.73sq m Chronic Kidney Disease: <60 mL/min/1.73sq m Kidney failure: <15 mL/min/1.73sq m eGFR calculated using average adult body mass. Additional eGFR calculator available at: http://www.[employer]/multiple_crcl_2012.htm Glucose [Mass/Vol] 127 mg/dL High 70 - 99 mg/dL [facility] Interpretation and review of laboratory results Abnormal [facility] Potassium [Moles/Vol] 4.8 mmol/L 3.7 - 5.3 mmol/L [facility] Sodium [Moles/Vol] 139 mmol/L 135 - 144 mmol/L [facility] Urea nitrogen (BldV) [Mass/Vol] 24 mg/dL High 6 - 20 mg/dL [facility] Basic Metabolic Profon 05-25 (cont.) Normal [facility] Comment on above: Result Comment: Aver age GFR for 50-59 years old: 93 mL/min/1.73sq m Chronic Kidney Disease: <60 mL/min/1.73sq m Kidney failure: <15 mL/min/1.73sq m eGFR calculated using average adult body mass. Additional eGFR calculator available at: http://www.[employer]/multiple_crcl_2011.htm Performed By: #### C BC, PT, PTT, BMP #### [employer] [address] [place], [place] [id number] Order Detailer: Good Melendez MD #### ANICOT #### [facility] [address] [place] [address] Order Detailer: Troy Link MD Anion gap [Moles/Vol] 10 mmol/L Normal -17 [facility] Comment on above: Performed By: #### C BC, PT, PTT, BMP #### [address] [address] Order Detailer: Good Melendez MD #### ANICOT #### [facility] [address] [place] [address] Order Detailer: Troy Link MD Calcium [Mass/Vol] 9.1 mg/dL Normal 8.6-10.4 [facility] Comment on above: Performed By: #### C BC, PT, PTT, BMP #### [address] [address] Order Detailer: Good Melendez MD #### ANICOT #### [facility] [address] [place] [address] [id number] Order Detailer: Troy Link MD Chloride [Moles/Vol] 106 mmol/L Normal 98-107 [facility] Comment on above: Performed By: #### C BC, PT, PTT, BMP #### [address] [address] Order Detailer: Good Melendez MD #### ANICOT #### [facility] [address] [place] [address] [id number] Order Detailer: Troy Link MD CO2 [Moles/Vol] 23 mmol/L Normal 20-31 [facility] Comment on above: Performed By: #### C BC, PT, PTT, BMP #### [address] [address] Order Detailer: Good Melendez MD #### ANICOT #### [facility] [address] [place], [place] [id number] Order Detailer: Troy Link MD Creatinine [Mass/Vol] 1.10 mg/dL Normal 0.70-1.20 [facility] Comment on above: Performed By: #### C BC, PT, PTT, BMP #### [address] [address] Order Detailer: Good Melendez MD #### ANICOT #### [facility] [address] [place], [place] [id number] Order Detailer: Troy Link MD GFR, Amer >60 Normal >60 [facility] Comment on above: Performed By: #### C BC, PT, PTT, BMP #### [address] [address] Order Detailer: Good Melendez MD #### ANICOT #### [address] [id number] Order Detailer: Troy Link MD GFR,non Amer >60 Normal >60 [facility] Comment on above: Performed By: #### C BC, PT, PTT, BMP #### [address] [address] Order Detailer: Good Melendez MD #### ANICOT #### [facility] [address] [place], [place] [id number] Order Detailer: Troy Link MD Glucose [Mass/Vol] 127 mg/dL High 70-99 [facility] Comment on above: Performed By: #### C BC, PT, PTT, BMP #### [address] [address] Order Detailer: Good Melendez MD #### ANICOT #### [facility] [address] [place] [address] Order Detailer: Troy Link MD Potassium [Moles/Vol] 4.8 mmol/L Normal 3.7-5.3 [facility] Comment on above: Performed By: #### C BC, PT, PTT, BMP #### [facility] [place] [address] Order Detailer: Good Melendez MD #### ANICOT #### [facility] [address] [place] [address] Order Detailer: Troy Link MD Sodium [Moles/Vol] 139 mmol/L Normal 135-144 [facility] Comment on above: Performed By: #### C BC, PT, PTT, BMP #### [facility] [address] [place] [address] Order Detailer: Good Melendez MD #### ANICOT #### [facility] [address] [place] [address] Order Detailer: Troy Link MD Urea nitrogen [Mass/Vol] 24 mg/dL High 6-20 [facility] Comment on above: Performed By: #### C BC, PT, PTT, BMP #### [facility] [address] [place] [address] Order Detailer: Good Melendez MD #### ANICOT #### [facility] [address] [place] [address] Order Detailer: Troy Link MD CBCon 05-25-2021 Erythrocyte distribution width (RBC) [Ratio] 13.9 % Normal 11.8-14.4 [facility] Comment on above: Performed By: #### C BC, PT, PTT, BMP #### [facility] [employer] [address] [place] [address] Order Detailer: Good Melendez MD #### ANICOT #### [facility] [address] [place] [address] Order Detailer: Troy Link MD Hematocrit (Bld) [Volume fraction] 39.5 % Low 40.7-50.3 [facility] Comment on above: Performed By: #### C BC, PT, PTT, BMP #### [address] [address] Order Detailer: Good Melendez MD #### ANICOT #### [facility] [address] [place], [place] [id number] Order Detailer: Troy Link MD Hemoglobin (Bld) [Mass/Vol] 12.2 g/dL Low 13.0-17.0 [facility] Comment on above: Performed By: #### C BC, PT, PTT, BMP #### [address] [address] Order Detailer: Good Melendez MD #### ANICOT #### [facility] [address] [place] [address] Order Detailer: Troy Link MD MCH (RBC) [Entitic mass] 30.2 pg Normal 25.2-33.5 [facility] Comment on above: Performed By: #### C BC, PT, PTT, BMP #### [address] [id number] Order Detailer: Good Melendez MD #### ANICOT #### [facility] [address] [place] [address] Order Detailer: Troy Link MD MCHC (RBC) [Mass/Vol] 30.9 g/dL Normal 28.4-34.8 [facility] Comment on above: Performed By: #### C BC, PT, PTT, BMP #### [address] [id number] Order Detailer: Good Melendez MD #### ANICOT #### [facility] [address] [place] [address] Order Detailer: Troy Link MD MCV (RBC) [Entitic vol] 97.8 fL Normal 82.6-102.9 [facility] Comment on above: Performed By: #### C BC, PT, PTT, BMP #### [address] [address] Order Detailer: Good Melendez MD #### ANICOT #### [facility] [address] [place] [address] Order Detailer: Troy Link MD NRBC Automated 0.0 per 100 WBC Normal 0.0 [facility] Comment on above: Performed By: #### C BC, PT, PTT, BMP #### [address] [id number] Order Detailer: Good Melendez MD #### ANICOT #### [facility] [address] [place] [address] Order Detailer: Troy Link MD Platelet mean volume (Bld) [Entitic vol] 8.8 fL Normal 8.1-13.5 [facility] Comment on above: Performed By: #### C BC, PT, PTT, BMP #### [address] [address] Order Detailer: Good Melendez MD #### ANICOT #### [facility] [address] [place] [address] Order Detailer: Troy Link MD Platelets (Bld) [#/Vol] 263 10*3/uL Normal 138-453 [facility] Comment on above: Performed By: #### C BC, PT, PTT, BMP #### [address] [address] Order Detailer: Good Melendez MD #### ANICOT #### [facility] [address] [place] [address] Order Detailer: Troy Link MD RBC (Bld) [#/Vol] 4.04 10*6/uL Low 4.21-5.77 [facility] Comment on above: Performed By: #### C BC, PT, PTT, BMP #### [facility] [address] [place], [place] [id number] Order Detailer: Good Melendez MD #### ANICOT #### [facility] [address] [place], [place] [phone] Order Detailer: Troy Link MD WBC (Bld) [#/Vol] 10.8 10*3/uL Normal 3.5-11.3 [facility] Comment on above: Performed By: #### C BC, PT, PTT, BMP #### [employer] [facility] [place] [address] Order Detailer: Good Melendez MD #### ANICOT #### [facility] [address] [place] [address] Order Detailer: Troy Link MD Hematocrit (Bld) [Volume fraction] 39.5 % Low 40.7 - 50.3 % [facility] [employer] Hemoglobin.gastroin testinal spec 1 Ql (Stl) 12.2 g/dL Low 13.0 - 17.0 g/dL [facility] [employer] Interpretation and review of laboratory results Abnormal [facility] MCH (RBC) [Entitic mass] 30.2 pg 25.2 - 33.5 pg [facility] [employer] MCHC (RBC) [Mass/Vol] 30.9 g/dL 28.4 - 34.8 g/dL [facility] MCV (RBC) [Entitic vol] 97.8 fL 82.6 - 102.9 fL [facility] NRBC Automated 0.0 0.0 per 100 WBC [facility] Platelet distribution width (Bld) [Ratio] 13.9 % 11.8 - 14.4 % [employer] Platelet mean volume (Bld) [Entitic vol] 8.8 fL 8.1 - 13.5 fL [facility] Platelets (Bld) [#/Vol] 263 10*3/uL [facility] RBC (Bld) [#/Vol] 4.04 10*6/uL Low 4.21 - 5.7 7 m/uL [facility] WBC (Bld) [#/Vol] 10.8 10*3/uL [facility] Magnesiumon 05-25-2021 Magnesium [Mass/Vol] 1.9 mg/dL Normal 1.6-2.6 [facility] Comment on above: Performed By: #### C BC, PT, PTT, BMP #### [employer] [facility] [place], [place] [id number] Order Detailer: Good Melendez MD #### ANLACEY #### [facility] [address] [place] [address] Order Detailer: Troy Link MD Magnesium [Mass/Vol] 1.9 mg/dL 1.6 - 2.6 mg/dL [facility] Surgical Pathologyon 022 Surgical Pathology (NOTE) -- Diagnosis -- STOMACH, SLEEVE GASTRECTOMY: - NORMAL GASTRIC MUCOSA AND WALL. Lucio Angeles M.D. Electronically Signed Out jet/05/26/2021 Clinical Information Pre-op Diagnosis: MORBID OBESITY, TYPE 2 DIABETES, HYPERTENSION Operative Findings: GASTRIC REMNANT Operation Performed: XI ROBOTIC LAPAROSCOPIC GASTRECTOMY SLEEVE, EGD Source of Specimen A: GASTRIC REMNANT Gross Description SUKHDEEP SIMENTAL, GASTRIC REMNANT 21.0 x 4.2 x 2.5 cm portion of stomach with a staple line that runs along its length. The serosa is pink-bundy and the mucosa is pink-red with no areas of granularity or masses. [employer] C[employer] sections 1cs. tm Microscopic Description Sections of gastric wall show lamina propria without evidence of significant inflammation. There is no evidence of intestinal metaplasia or dysplasia. There is no evidence of organisms suspicious for Helicobacter with the routine CANDY stain. SURGICAL PATHOLOGY CONSULTATION Patient Name: SUKHDEEP SIMENTAL [facility] Rec: [id number] Path Number: [id number] [facility] ANATOMIC PATHOLOGY [address] [place] [id number] Normal [facility] Comment on above: Performed By: #### C BC, PT, PTT, BMP #### [employer] [address] [place] [address] Order Detailer: Good Melendez MD #### ANICOT #### [facility] [address] [place] [address] Order Detailer: Troy Link MD Basic Metabolic Panelon - Anion gap [Moles/Vol] 13 mmol/L 9 - 17 mmol/L [employer] Calcium [Mass/Vol] 9.1 mg/dL 8.6 - 10. 4 mg/dL [facility] Chloride [Moles/Vol] 102 mmol/L 98 - 107 mmol/L [facility] CO2 [Moles/Vol] 17 mmol/L Low 20 - 31 mmol/L [facility] Creatinine [Mass/Vol] 1.16 mg/dL 0.70 - 1.20 mg/dL [facility] GFR >60 >60 mL/min [facility] [employer] GFR Non- >60 >60 mL/min [facility] GFR/1.73 sq M.predicted MDRD (S/P/Bld) [Vol rate/Area] [facility] [employer] Comment on above: Average GFR for 50-5 9 years old: 93 mL/min/1.73sq m Chronic Kidney Disease: <60 mL/min/1.73sq m Kidney failure: <15 mL/min/1.73sq m eGFR calculated using average adult body mass. Additional eGFR calculator available at: http://www.[employer]/multiple_crcl_2012.htm Glucose [Mass/Vol] 203 mg/dL High 70 - 99 mg/dL [facility] Interpretation and review of laboratory results Abnormal [employer] Potassium [Moles/Vol] 4.2 mmol/L 3.7 - 5.3 mmol/L [facility] [employer] Sodium [Moles/Vol] 132 mmol/L Low 135 - 144 mmol/L [facility] [employer] Urea nitrogen (BldV) [Mass/Vol] 29 mg/dL High 6 - 20 mg/dL [facility] Basic Metabolic Profon 05-24 (cont.) Normal [facility] Comment on above: Result Comment: Aver age GFR for 50-59 years old: 93 mL/min/1.73sq m Chronic Kidney Disease: <60 mL/min/1.73sq m Kidney failure: <15 mL/min/1.73sq m eGFR calculated using average adult body mass. Additional eGFR calculator available at: http://www.[employer]/multiple_crcl_2012.htm Performed By: #### C BC, BMP #### [facility] [employer] [address] [place] [address] Order Detailer: Good Melendez MD Anion gap [Moles/Vol] 13 mmol/L Normal 9-17 [facility] Comment on above: Performed By: #### C BC, BMP #### [facility] [employer] [address] [place] [address] Order Detailer: Good Melendez MD Calcium [Mass/Vol] 9.1 mg/dL Normal 8.6-10.4 [facility] Comment on above: Performed By: #### C BC, BMP #### [facility] [employer] [address] [place] [address] Order Detailer: Good Melendez MD Chloride [Moles/Vol] 102 mmol/L Normal 98-107 [facility] Comment on above: Performed By: #### C BC, BMP #### [address] [address] Order Detailer: Good Melendez MD CO2 [Moles/Vol] 17 mmol/L Low 20-31 [facility] Comment on above: Performed By: #### C BC, BMP #### [facility] [employer] [address] [place] [address] Order Detailer: Good Melendez MD Creatinine [Mass/Vol] 1.16 mg/dL Normal 0.70-1.20 [facility] Comment on above: Performed By: #### C BC, BMP #### [facility] [employer] [address] [place] [address] Order Detailer: Good Melendez MD GFR, Amer >60 Normal >60 [facility] Comment on above: Performed By: #### C BC, BMP #### [facility] [employer] [address] [place] [address] Order Detailer: Good Melendez MD GFR,non Amer >60 Normal >60 [facility] Comment on above: Performed By: #### C BC, BMP #### [facility] [employer] [address] [place] [address] Order Detailer: Good Melendez MD Glucose [Mass/Vol] 203 mg/dL High 70-99 [facility] Comment on above: Performed By: #### C BC, BMP #### [facility] [employer] [address] [place] [address] Order Detailer: Good Melendez MD Potassium [Moles/Vol] 4.2 mmol/L Normal 3.7-5.3 [facility] Comment on above: Performed By: #### C BC, BMP #### [facility] [employer] [address] [place] [address] Order Detailer: Good Melendez MD Sodium [Moles/Vol] 132 mmol/L Low 135-144 [facility] Comment on above: Performed By: #### C BC, BMP #### [facility] [employer] [address] [place] [address] Order Detailer: Good Melendez MD Urea nitrogen [Mass/Vol] 29 mg/dL High 6-20 [facility] Comment on above: Performed By: #### C BC, BMP #### [facility] [address] [place] [address] Order Detailer: Good Melendez MD CBCon 05-24-2021 Erythrocyte distribution width (RBC) [Ratio] 14.0 % Normal 11.8-14.4 [facility] Comment on above: Performed By: #### C BC, BMP #### [facility] [employer] [address] [place] [address] Order Detailer: Good Melendez MD Hematocrit (Bld) [Volume fraction] 41.0 % Normal 40.7-50.3 [facility] Comment on above: Performed By: #### C BC, BMP #### [address] [address] Order Detailer: Good Melendez MD Hemoglobin (Bld) [Mass/Vol] 12.7 g/dL Low 13.0-17.0 [facility] Comment on above: Performed By: #### C BC, BMP #### [address] [address] Order Detailer: Good Melendez MD MCH (RBC) [Entitic mass] 29.5 pg Normal 25.2-33.5 [facility] Comment on above: Performed By: #### C BC, BMP #### [address] [address] Order Detailer: Good Melendez MD MCHC (RBC) [Mass/Vol] 31.0 g/dL Normal 28.4-34.8 [facility] Comment on above: Performed By: #### C BC, BMP #### [address] [address] Order Detailer: Good Melendez MD MCV (RBC) [Entitic vol] 95.3 fL Normal 82.6-102.9 [facility] Comment on above: Performed By: #### C BC, BMP #### [address] [address] Order Detailer: Good Melendez MD NRBC Automated 0.0 per 100 WBC Normal 0.0 [facility] Comment on above: Performed By: #### C BC, BMP #### [address] [address] Order Detailer: Good Melendez MD Platelet mean volume (Bld) [Entitic vol] 8.8 fL Normal 8.1-13.5 [facility] Comment on above: Performed By: #### C JASE, BMP #### [facility] [employer] [facility] [place] [address] Order Detailer: Good Melendez MD Platelets (Bld) [#/Vol] 273 10*3/uL Normal 138-453 [facility] Comment on above: Performed By: #### C JASE, BMP #### [facility] [place] [address] Order Detailer: Good Melendez MD RBC (Bld) [#/Vol] 4.30 10*6/uL Normal 4.21-5.77 [facility] Comment on above: Performed By: #### Bennett LAGUNA, BMP #### [facility] [employer] [address] [place] [address] Order Detailer: Good Melendez MD WBC (Bld) [#/Vol] 9.6 10*3/uL Normal 3.5-11.3 [facility] Comment on above: Performed By: #### Bennett LAGUNA, BMP #### [facility] [employer] [address] [place] [address] Order Detailer: Good Melendez MD CBC without Diffon Hematocrit (Bld) [Volume fraction] 41.0 % 40.7 - 50.3 % [facility] Hemoglobin.gastroin testinal spec 1 Ql (Stl) 12.7 g/dL Low 13.0 - 17.0 g/dL [facility] Interpretation and review of laboratory results Abnormal [facility] MCH (RBC) [Entitic mass] 29.5 pg 25.2 - 33.5 pg [facility] MCHC (RBC) [Mass/Vol] 31.0 g/dL 28.4 - 34.8 g/dL [facility] MCV (RBC) [Entitic vol] 95.3 fL 82.6 - 102.9 fL [facility] NRBC Automated 0.0 0.0 per 100 WBC [facility] Platelet distribution width (Bld) [Ratio] 14.0 % 11.8 - 14.4 % [facility] Platelet mean volume (Bld) [Entitic vol] 8.8 fL 8.1 - 13.5 fL [facility] Platelets (Bld) [#/Vol] 273 10*3/uL [facility] RBC (Bld) [#/Vol] 4.30 10*6/uL 4.21 - 5.7 7 m/uL [facility] WBC (Bld) [#/Vol] 9.6 10*3/uL [facility] COVID-19, Rapidon 05-24-2021 SARS-CoV-2 (COVID-19) RNA MUKUL+probe Ql (Unsp spec) Not detected Not Detected [facility] Comment on above: Rapid NAAT: The specimen is NEGATIVE for SARS-CoV-2, the novel coronavirus associated with COVID-19. The ID NOW COVID-19 assay is designed to detect the virus that causes COVID-19 in patients with signs and symptoms of infection who are suspected of COVID-19. An individual without symptoms of COVID-19 and who is not shedding SARS-CoV-2 virus would expect to have a negative (not detected) result in this assay. Negative results should be treated as presumptive and, if inconsistent with clinical signs and symptoms or necessary for patient management, should be tested with an alternative molecular assay. Negative results do not preclude SARS-CoV-2 infection and should not be used as the sole basis for patient management decisions. Fact sheet for Healthcare Providers: https://www.fda.gov/media/552254/download Fact sheet for Patients: https://www.fda.gov/media/883741/download Methodology: Isothermal Nucleic Acid Amplification Specimen Description .NAS[facility]HARYNGEAL SWAB [facility] Calcium, Ionicon 05-24-2021 Calcium [Moles/Vol] 1.31 mmol/L Normal 1.13-1.33 [facility] Comment on above: Performed By: #### I MG BRAVO, BRITTANIE #### [facility] [employer] [address] [place] [address] Order Detailer: Good Melendez MD Calcium, Ionizedon Calcium [Moles/Vol] 1.31 mmol/L 1.13 - 1 .33 mmol/L [facility] Magnesiumon 05-24-2021 Magnesium [Mass/Vol] 2.0 mg/dL Normal 1.6-2.6 [facility] Comment on above: Performed By: #### C BC, PT, PTT, BMP #### [facility] [employer] [address] [place], [place] [phone] Order Detailer: Good Melendez MD #### ANICOT #### [facility] [address] [place] [address] Order Detailer: Troy Link MD Magnesium [Mass/Vol] 2.0 mg/dL 1.6 - 2.6 mg/dL [facility] No Panel Informationon 05-[address] [facility] POC Glucose Fingerstickon Glucose [Mass/Vol] 199 mg/dL High 75 - 110 mg/dL [facility] Interpretation and review of laboratory results Abnormal [facility] Glucose [Mass/Vol] 209 mg/dL High 75 - 110 mg/dL [facility] Interpretation and review of laboratory results Abnormal [facility] POCT Glucoseon 05-24-2021 Glucose [Mass/Vol] 150 mg/dL High 74 - 100 mg/dL [facility] Interpretation and review of laboratory results Abnormal [facility] POTASSIUM (POC)on 05-24-2021 Potassium [Moles/Vol] 3.9 mmol/L 3.5 - 4.5 mmol/L [facility] Phosphoruson 05-24-2021 Phosphate [Mass/Vol] 3.8 mg/dL 2.5 - 4.5 mg/dL [facility] Phosphorus, Inorg.on 022 Phosphorus, Inorg. 3.8 mg/dL Normal 2.5-4.5 [facility] Comment on above: Performed By: #### C BC, PT, PTT, BMP #### [facility] [employer] [address] [place], [place] [phone] Order Detailer: Good Melendez MD #### ANICOT #### [facility] [address] [place] [address] Order Detailer: Troy Link MD [id number] 05-24-2021 SARS-CoV-2 (COVID-19) RNA MUKUL+probe Ql (Unsp spec) Not detected Normal [facility] Comment on above: Result Comment: Rapid NAAT: The specimen is NEGATIVE for SARS-CoV-2, the novel coronavirus associated with COVID-19. The ID NOW COVID-19 assay is designed to detect the virus that causes COVID-19 in patients with signs and symptoms of infection who are suspected of COVID-19. An individual without symptoms of COVID-19 and who is not shedding SARS-CoV-2 virus would expect to have a negative (not detected) result in this assay. Negative results should be treated as presumptive and, if inconsistent with clinical signs and symptoms or necessary for patient management, should be tested with an alternative molecular assay. Negative results do not preclude SARS-CoV-2 infection and should not be used as the sole basis for patient management decisions. Fact sheet for Healthcare Providers: https://www.fda.gov/media/012896/download Fact sheet for Patients: https://www.fda.gov/media/544299/download Methodology: Isothermal Nucleic Acid Amplification Performed By: #### C OVRB #### [employer] [address] [place] [address] Order Detailer: Good Melendez MD Nicotineon 05-11-2021 [id number] <2 Normal [facility] Comment on above: Performed By: #### C BC, PT, PTT, BMP #### [employer] [address] [place] [address] Order Detailer: Good Melendez MD #### ANICOT #### [facility] [address] [place] [address] Order Detailer: Troy Link MD Cotinine <2 Normal [facility] Comment on above: Performed By: #### C BC, PT, PTT, BMP #### [employer] [address] [place] [address] Order Detailer: Good Melendez MD #### ANICOT #### [facility] [address] [place] [address] Order Detailer: Troy Link MD Nicotine <2 Normal [facility] Comment on above: Result Comment: (NOT E) Consistent with abstinence from nicotine-containing products for at least 1 week. INTERPRETIVE INFORMATION: Nicotine and Metabolites, Serum or Plasma, Quantitative Methodology: Quantitative Liquid Chromatography-Tandem Mass Spectrometry Positive cutoff: 2 ng/mL For medical purposes only; not valid for forensic use. This test is designed to evaluate recent use of nicotine-containing products. Passive and active exposure cannot be discriminated definitively, although a cutoff of 10 ng/mL cotinine is frequently used for surgery qualification purposes. For smoking cessation programs or compliance testing, the absence of expected drug(s) and/or drug metabolite(s) may indicate non-compliance, inappropriate timing of specimen collection relative to drug administration, poor drug absorption, or limitations of testing. This test cannot distinguish between use of tobacco and purified nicotine products. The concentration value must be greater than or equal to the cutoff to be reported as positive. This test was developed and its performance characteristics determined by [employer]. It has not been cleared or approved by the [place] Food and Drug Administration. This test was performed in a CLIA certified laboratory and is intended for clinical purposes. Performed By: [employer] [address] [place] [id number] General Practice: Ayse Diaz MD Performed By: #### C BC, PT, PTT, BMP #### [facility] [address] [address] Order Detailer: Good Melendez MD #### ANICOT #### [facility] [address] [place] [address] Order Detailer: Troy Link MD Nicotine, Bloodon 05-11-2021 [id number] <2 ng/mL [facility] h Cotinine <2 ng/mL [facility] Nicotine <2 ng/mL [facility] Comment on above: (NOTE) Consistent with abstinence from nicotine-containing products for at least 1 week. INTERPRETIVE INFORMATION: Nicotine and Metabolites, Serum or Plasma, Quantitative Methodology: Quantitative Liquid Chromatography-Tandem Mass Spectrometry Positive cutoff: 2 ng/mL For medical purposes only; not valid for forensic use. This test is designed to evaluate recent use of nicotine-containing products. Passive and active exposure cannot be discriminated definitively, although a cutoff of 10 ng/mL cotinine is frequently used for surgery qualification purposes. For smoking cessation programs or compliance testing, the absence of expected drug(s) and/or drug metabolite(s) may indicate non-compliance, inappropriate timing of specimen collection relative to drug administration, poor drug absorption, or limitations of testing. This test cannot distinguish between use of tobacco and purified nicotine products. The concentration value must be greater than or equal to the cutoff to be reported as positive. This test was developed and its performance characteristics determined by [employer]. It has not been cleared or approved by the [place] Food and Drug Administration. This test was performed in a CLIA certified laboratory and is intended for clinical purposes. Performed By: [employer] [address] [place] [address] General Practice: Ayse Diaz MD [employer] EKG 12 LeadOrdered By: Unkno wn Result on 05-09-2021 Atrial Rate 122 BPM [employer] P [place] 55 degrees [employer] P-R Interval 164 ms [employer] Q-T Interval 298 ms [employer] QRS Duration 84 ms [employer] QTc Calculation (Bazett) 424 ms [employer] R [place] -11 degrees [employer] T [place] 42 degrees [employer] Ventricular Rate 122 BPM [facility] EKG 12 Leadon 05-09-2021 Sinus tachycardia Otherwise normal ECG No previous ECGs available [facility] MUSE Result, Unknown Provider - 05/09/2021 Sinus tachycardia Otherwise normal ECG No previous ECGs available [employer] Work Phone: XR CHEST (2 VW)on 05-09-2021 XR CHEST (2 VW) EXAMINATION: TWO XRAY VIEWS OF THE CHEST 05/08/2021 12:06 pm COMPARISON: None. HISTORY: ORDERING SYSTEM PROVIDED HISTORY: Pre-op chest exam FINDINGS: Cardiac silhouette size at the upper limits of normal. Minimal linear opacities in the mid and lower lung garza, which may represent subsegmental atelectasis or scarring. There is no consolidation, pneumothorax or evidence for edema. No evidence for effusion. No acute osseous abnormality is identified. IMPRESSION: No acute airspace disease identified. Interpreted by: Helen Calero MD Signed by: Helen Calero MD 05/09/21 Final result Normal [facility] No acute airspace disease identified. [facility] EXAMINATION: TWO XRAY VIEWS OF THE CHEST 05/08/2021 12:06 pm COMPARISON: None. HISTORY: ORDERING SYSTEM PROVIDED HISTORY: Pre-op chest exam FINDINGS: Cardiac silhouette size at the upper limits of normal. Minimal linear opacities in the mid and lower lung garza, which may represent subsegmental atelectasis or scarring. There is no consolidation, pneumothorax or evidence for edema. No evidence for effusion. No acute osseous abnormality is identified. [facility] Helen Calero MD - 05/09/2021 EXAMINATION: TWO XRAY VIEWS OF THE CHEST 05/08/2021 12:06 pm COMPARISON: None. HISTORY: ORDERING SYSTEM PROVIDED HISTORY: Pre-op chest exam FINDINGS: Cardiac silhouette size at the upper limits of normal. Minimal linear opacities in the mid and lower lung garza, which may represent subsegmental atelectasis or scarring. There is no consolidation, pneumothorax or evidence for edema. No evidence for effusion. No acute osseous abnormality is identified. IMPRESSION: No acute airspace disease identified. [employer] Phone: XR CHEST (2 VW)Ordered By: Carlos Calero on 05-09-2021 [employer] Phone: APTTon 05-08-2021 aPTT Coag (Bld) [Time] 23.1 s Normal 20.5-30.5 [facility] Comment on above: Result Comment: IV Heparin Therapy Range: 48.6-77.8 Performed By: #### C BC, PT, PTT, BMP #### [employer] [address] [place] [address] Order Detailer: Good Melendez MD #### ANICOT #### [facility] [address] [place] [address] Order Detailer: Troy Link MD aPTT Coag (Bld) [Time] 23.1 s [facility] Comment on above: IV Heparin Therapy Range: 48.6-77.8 Basic Metabolic Panelon 04-25 Anion gap [Moles/Vol] 15 mmol/L 9 - 17 mmol/L [facility] [employer] Calcium [Mass/Vol] 9.4 mg/dL 8.6 - 10. 4 mg/dL [facility] [employer] Chloride [Moles/Vol] 103 mmol/L 98 - 107 mmol/L [facility] [employer] CO2 [Moles/Vol] 19 mmol/L Low 20 - 31 mmol/L [facility] [employer] Creatinine [Mass/Vol] 1.59 mg/dL High 0.70 - 1.20 mg/dL [facility] [employer] GFR 55 mL/min Low >60 [facility] [employer] GFR Non- 45 mL/min Low >60 [facility] [employer] GFR/1.73 sq M.predicted MDRD (S/P/Bld) [Vol rate/Area] [facility] Comment on above: Average GFR for 50-5 9 years old: 93 mL/min/1.73sq m Chronic Kidney Disease: <60 mL/min/1.73sq m Kidney failure: <15 mL/min/1.73sq m eGFR calculated using average adult body mass. Additional eGFR calculator available at: http://www.[employer]/multiple_crcl_2011.htm Glucose [Mass/Vol] 141 mg/dL High 70 - 99 mg/dL [facility] Interpretation and review of laboratory results Abnormal [facility] [employer] Potassium [Moles/Vol] 5.3 mmol/L 3.7 - 5.3 mmol/L [facility] [employer] Sodium [Moles/Vol] 137 mmol/L 135 - 144 mmol/L [facility] Urea nitrogen (BldV) [Mass/Vol] 37 mg/dL High 6 - 20 mg/dL [facility] Basic Metabolic Profon 05-08 (cont.) Normal [facility] Comment on above: Result Comment: Aver age GFR for 50-59 years old: 93 mL/min/1.73sq m Chronic Kidney Disease: <60 mL/min/1.73sq m Kidney failure: <15 mL/min/1.73sq m eGFR calculated using average adult body mass. Additional eGFR calculator available at: http://www.[employer].SocialExpress/multiple_crcl_2012.htm Performed By: #### C BC, PT, PTT, BMP #### [address] [address] Order Detailer: Good Melendez MD #### ANICOT #### [facility] [address] [place], [place] [id number] Order Detailer: Troy Link MD Anion gap [Moles/Vol] 15 mmol/L Normal 9-17 [facility] Comment on above: Performed By: #### C BC, PT, PTT, BMP #### [address] [address] Order Detailer: Good Melendez MD #### ANICOT #### [facility] [address] [place], [place] [id number] Order Detailer: Troy Link MD Calcium [Mass/Vol] 9.4 mg/dL Normal 8.6-10.4 [facility] Comment on above: Performed By: #### C BC, PT, PTT, BMP #### [address] [address] Order Detailer: Good Melendez MD #### ANICOT #### [facility] [address] [place], [place] [phone] Order Detailer: Troy Link MD Chloride [Moles/Vol] 103 mmol/L Normal 98-107 [facility] Comment on above: Performed By: #### C BC, PT, PTT, BMP #### [address] [address] Order Detailer: Good Melendez MD #### ANICOT #### [facility] [address] [place] [address] Order Detailer: Troy Link MD CO2 [Moles/Vol] 19 mmol/L Low 20-31 [facility] Comment on above: Performed By: #### C BC, PT, PTT, BMP #### [facility] [address] [place] [address] [phone] Order Detailer: Good Melendez MD #### ANICOT #### [facility] [address] [place], [place] [id number] Order Detailer: Troy Link MD Creatinine [Mass/Vol] 1.59 mg/dL High 0.70-1.20 [facility] Comment on above: Performed By: #### C BC, PT, PTT, BMP #### [address] [phone] Order Detailer: Good Melendez MD #### ANICOT #### [facility] [address] [place], [place] [id number] Order Detailer: Troy Link MD GFR, Amer 55 mL/min Low >60 [facility] Comment on above: Performed By: #### C BC, PT, PTT, BMP #### [address] [phone] Order Detailer: Good Melendez MD #### ANICOT #### [facility] [address] [place], [place] [id number] Order Detailer: Troy Link MD GFR,non Amer 45 mL/min Low >60 [facility] Comment on above: Performed By: #### C BC, PT, PTT, BMP #### [facility] [address] [place] [address] Order Detailer: Good Melendez MD #### ANICOT #### [facility] [address] [place], [place] [phone] Order Detailer: Troy Link MD Glucose [Mass/Vol] 141 mg/dL High 70-99 [facility] Comment on above: Performed By: #### C BC, PT, PTT, BMP #### [facility] [employer] [address] [place] [address] Order Detailer: Good Melendez MD #### ANICOT #### [facility] [address] [place], [place] [phone] Order Detailer: Troy Link MD Potassium [Moles/Vol] 5.3 mmol/L Normal 3.7-5.3 [facility] Comment on above: Performed By: #### C BC, PT, PTT, BMP #### [address] [address] Order Detailer: Good Melendez MD #### ANICOT #### [address] [address] Order Detailer: Troy Link MD Sodium [Moles/Vol] 137 mmol/L Normal 135-144 [facility] Comment on above: Performed By: #### C BC, PT, PTT, BMP #### [address] [address] Order Detailer: Good Melendez MD #### ANICOT #### [address] [address] Order Detailer: Troy Link MD Urea nitrogen [Mass/Vol] 37 mg/dL High 6-20 [facility] Comment on above: Performed By: #### C BC, PT, PTT, BMP #### [facility] [employer] [address] [place] [address] Order Detailer: Good Melendez MD #### ANICOT #### [address] [address] Order Detailer: Troy Link MD CBCon 05-08-2021 Erythrocyte distribution width (RBC) [Ratio] 14.1 % Normal 11.8-14.4 [facility] Comment on above: Performed By: #### C BC, PT, PTT, BMP #### [facility] [place] [address] Order Detailer: Good Melendez MD #### ANICOT #### [facility] [address] [place], [place] [id number] Order Detailer: Troy Link MD Hematocrit (Bld) [Volume fraction] 43.6 % Normal 40.7-50.3 [facility] Comment on above: Performed By: #### C BC, PT, PTT, BMP #### [facility] [address] [place] [address] Order Detailer: Good Melendez MD #### ANICOT #### [facility] [address] [place] [address] Order Detailer: Troy Link MD Hemoglobin (Bld) [Mass/Vol] 13.5 g/dL Normal 13.0-17.0 [facility] Comment on above: Performed By: #### C BC, PT, PTT, BMP #### [facility] [address] [place] [address] [phone] Order Detailer: Good Melendez MD #### ANICOT #### [facility] [address] [place] [address] Order Detailer: Troy Link MD MCH (RBC) [Entitic mass] 29.4 pg Normal 25.2-33.5 [facility] Comment on above: Performed By: #### C BC, PT, PTT, BMP #### [facility] [address] [place] [address] [phone] Order Detailer: Good Melendez MD #### ANICOT #### [facility] [address] [place] [address] Order Detailer: Troy Link MD MCHC (RBC) [Mass/Vol] 31.0 g/dL Normal 28.4-34.8 [facility] Comment on above: Performed By: #### C BC, PT, PTT, BMP #### [address] [phone] Order Detailer: Good Melendez MD #### ANICOT #### [facility] [address] [place] [address] Order Detailer: Troy Link MD MCV (RBC) [Entitic vol] 95.0 fL Normal 82.6-102.9 [facility] Comment on above: Performed By: #### C BC, PT, PTT, BMP #### [address] [address] Order Detailer: Good Melendez MD #### ANICOT #### [facility] [address] [place], [place] [id number] Order Detailer: Troy Link MD NRBC Automated 0.0 per 100 WBC Normal 0.0 [facility] Comment on above: Performed By: #### C BC, PT, PTT, BMP #### [address] [phone] Order Detailer: Good Melendez MD #### ANICOT #### [facility] [address] [place], [place] [id number] Order Detailer: Troy Link MD Platelet mean volume (Bld) [Entitic vol] 8.7 fL Normal 8.1-13.5 [facility] Comment on above: Performed By: #### C BC, PT, PTT, BMP #### [address] [phone] Order Detailer: Good Melendez MD #### ANICOT #### [facility] [address] [place], [place] [phone] Order Detailer: Troy Link MD Platelets (Bld) [#/Vol] 279 10*3/uL Normal 138-453 [facility] Comment on above: Performed By: #### C BC, PT, PTT, BMP #### [facility] [address] [place] [address] Order Detailer: Good Melendez MD #### ANICOT #### [facility] [address] [place], [place] [phone] Order Detailer: Troy Link MD RBC (Bld) [#/Vol] 4.59 10*6/uL Normal 4.21-5.77 [facility] Comment on above: Performed By: #### C BC, PT, PTT, BMP #### [facility] [address] [place] [address] [id number] Order Detailer: Good Melendez MD #### ANICOT #### [facility] [address] [place] [address] Order Detailer: Troy Link MD WBC (Bld) [#/Vol] 8.9 10*3/uL Normal 3.5-11.3 [facility] Comment on above: Performed By: #### C BC, PT, PTT, BMP #### [facility] [address] [place] [address] [phone] Order Detailer: Good Melendez MD #### ANICOT #### [facility] [address] [place], [place] [phone] Order Detailer: Troy Link MD Hematocrit (Bld) [Volume fraction] 43.6 % 40.7 - 50.3 % [facility] Hemoglobin.gastroin testinal spec 1 Ql (Stl) 13.5 g/dL 13.0 - 17.0 g/dL [facility] MCH (RBC) [Entitic mass] 29.4 pg 25.2 - 33.5 pg [facility] MCHC (RBC) [Mass/Vol] 31.0 g/dL 28.4 - 34.8 g/dL [facility] MCV (RBC) [Entitic vol] 95.0 fL 82.6 - 102.9 fL [facility] NRBC Automated 0.0 0.0 per 100 WBC [facility] Platelet distribution width (Bld) [Ratio] 14.1 % 11.8 - 14.4 % [facility] Platelet mean volume (Bld) [Entitic vol] 8.7 fL 8.1 - 13.5 fL [facility] Platelets (Bld) [#/Vol] 279 10*3/uL [facility] RBC (Bld) [#/Vol] 4.59 10*6/uL 4.21 - 5.7 7 m/uL [facility] WBC (Bld) [#/Vol] 8.9 10*3/uL [facility] No Panel Informationon 05-08 [facility] PTon 05-08-2021 INR Coag (PPP) [Relative time] 1.1 {INR} Normal [facility] Comment on above: Result Comment: Therapeutic Range: Moderate Anticoagulant Intensity: INR = 2.0-3.0 High Anticoagulant Intensity: INR = 2.5-3.5 Performed By: #### C BC, PT, PTT, BMP #### [facility] [place], [place] [phone] Order Detailer: Good Melendez MD #### JIMENA #### [facility] [address] [place] [address] Order Detailer: Troy Link MD PT Coag (PPP) [Time] 11.2 s Normal 9.1-12.3 [facility] Comment on above: Performed By: #### C BC, PT, PTT, BMP #### [employer] [address] [place] [address] Order Detailer: Good Melendez MD #### YASSINET #### [facility] [address] [place] [address] Order Detailer: Troy Link MD [employer]-INRon 05-08-2021 INR Coag (Bld) [Relative time] 1.1 {INR} [facility] Comment on above: Therapeutic Range: Moderate Anticoagulant Intensity: INR = 2.0-3.0 High Anticoagulant Intensity: INR = 2.5-3.5 PT Coag (PPP) [Time] 11.2 s [facility] XR CHEST (2 VW)on 05-08-2021 Radiology Study observation (narrative) [employer] Work Phone: CT LUMBAR SPINE W CONTRASTon 02-28-2021 CT LUMBAR SPINE W CONTRAST [facility] Department of Radiology [address] [place] [phone] ======== Patient Name: SUKHDEEP SIMENTAL : 1965 Sex: M Age: Race: White Pt. Location: Patient Status: D Ordered Date: 02/13/2021 9:35:00 AM Completed Date: 02/28/2021 02:00 PM Requesting Provider: JASON KISER Attending Provider: JASON KISER Report Copy To: Signs & Symptoms: Z98.1 Arthrodesis status I10 History: Crissy Comments: Exam: CT LUMBAR SPINE W CONTRAST ======== CT LUMBAR SPINE W CONTRAST 02/28/2021 2:00 PM CLINICAL INDICATIONS: Z98.1 Arthrodesis status I10 TECHNOLOGIST COMMENTS: QUESTION FOR THE RADIOLOGIST: PROTOCOL: Volume acquisition with MIP, multiplanar reformats and 3D reconstructed images were generated on an independent workstation and reviewed to further define anatomy and possible pathology. TECHNIQUE: Multidetector CT axial slices of thelumbar spine were obtained without IV contrast. Multiplanar reformats, MIP, volume rendered 3-D images were generated on a separate workstation and reviewed to further define anatomy and possible pathology. Study was performed following intrathecal administration of contrast All CT scans at this facility use dose modulation, iterative reconstruction, and/or weight based dosing when appropriate to reduce radiation dose to as low as reasonably achievable COMPARISON: Myelogram from earlier on the same day. Prior lumbar spine x-rays from 02/01/2021 FINDINGS: Axial CT scan images of the lumbar spine with sagittal, coronal and 3-D reconstruction revealed the presence of mild levoconvex lower lumbar scoliosis with evidence of prior L4 and L5 as well as L3 laminectomy with posterior spinal hardware fusion and transpedicular screws at L4-S1 level. There is vacuum disc phenomenon and severe disc space narrowing at L5-S1 level and severe disc space narrowing at L4-5. There is bony fusion masses seen bilaterally. There is significant vacuum disc phenomenon and narrowing with endplate sclerosis and Schmorl's nodes seen at L2-3 with vacuum disc phenomenon seen at L3-4 but without disc space narrowing. There is central spondylotic disc bulges at L2-3 with effacement of the thecal sac and mild acquired canal stenosis is noticed at L2-3. The graph at L3-4, there is focal eccentric disc protrusion to the right side of midline and extending to the right neural foramen with significant right neural foramen narrowing and moderate to severe acquired canal stenosis seen. The disc extends superiorly posterior to L3 vertebral body. The graph bilateral sacroiliac joint vacuum disc phenomenon and mild bony spurring. Visualized lower abdomen and pelvis soft tissues appear grossly unremarkable. Visualized part of the lungs are clear. IMPRESSION: Evidence of prior L3-L5 laminectomy and posterior spinal hardware fusion with transpedicular screws at L4-S1 level. Bony fusion masses are seen bilaterally and mild levoconvex scoliosis. Severe acquired canal stenosis at L3-4 secondary to focal eccentric disc protrusion extending superiorly posterior to L3 vertebral body to the right side of midline and associated with right neural foramen narrowing. Mild L2-3 spondylotic changes as described above Electronically signed: Parvin Mg. Transcribed by: [email or web address], User Resident: Electronically Signed by: PARVIN MG @ 03/01/2021 02:21 PM Normal [facility] LUMBAR MYELOGRAMon LUMBAR MYELOGRAM [facility] Department of Radiology [address] [place] [phone] ======== Patient Name: SUKHDEEP SIMENTAL : 1965 Sex: M Age: Race: White Pt. Location: 84 Patient Status: O Ordered Date: 02/13/2021 9:35:00 AM Completed Date: 02/28/2021 02:06 PM Requesting Provider: JASON KISER Attending Provider: JASON KISER Report Copy To: Signs & Symptoms: Z98.1 Arthrodesis status I10 History: [phone] Is patient on thinners? Eliquis hold 48hrs. 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 Mg and Dr. Hong 5 images sent .13 min fluoro time used 50 mGy QUESTION FOR THE RADIOLOGIST: INFORMED CONSENT: Reason for procedure was discussed with the patient. The procedure expectations risks benefits options and alternatives were discussed. All the questions were answered. The patient understood that results cannot be guaranteed. The procedure is indicated and risks are acceptable. Consent was obtained. Timeout: Firth protocol timeout verification performed. PROCEDURE: Estimated blood loss: None mL. Fluoroscopy time: 0.13 minutes Number of fluoroscopic images:5. Total radiation exposure is 50 mGy CONTRAST: Contrast: OMNIPAQUE 180 (LOCM), 15 milliliter FINDINGS: After the consent was obtained and time out was performed, the patient was prepped and draped in the usual sterile fashion. Utilizing fluoroscopic guidance, L4-L5 interspace was selected for the procedure. 1 percent lidocaine was used for local anesthesia. A 20 gauge needle was placed into the subarachnoid space under fluoroscopic guidance. The location of the needle was confirmed by lateral projection prior to injection of the contrast. Approximately 15 mL of Omnipaque 180 was injected and presence of the contrast in the intrathecal space was documented by AP, lateral, and bilateral obliques views. Posterior spinal hardware fusion was transpedicular screws at L4-S1 level. Frontal, lateral and oblique views are obtained of the lumbar spine and demonstrate disc bulges at L3-4 and L2-3 level. The patient tolerated the procedure well and was sent for CT lumbar myelogram. Dr. MG was present during the critical part of the procedure IMPRESSION: Successful lumbar spine myelogram. Please see separate CT lumbar spine report for detailed findings. Approved by:Ochoa Rogers02/28/2021 3:03 PM. I, Parvin Mg,have reviewed the image(s) and agree with the findings in this report. Electronically signed: Parvin Mg. Transcribed by: [email or web address], User Resident: OCHOA HONG Electronically Signed by: PARVIN MG @ 02/28/2021 03:13 PM I personally read this/these film(s) with this resident Normal [facility] LUMBAR SPINE 4 OR 5 [facility] LUMBAR SPINE 4 OR 5 [facility] Department of Radiology [address] [place] [phone] ======== Patient Name: SUKHDEEP SIMENTAL : 1965 Sex: M Age: Race: White Pt. Location: Patient Status: D Ordered Date: 02/01/2021 1:05:00 PM Completed Date: 02/01/2021 01:12 PM Requesting Provider: JASON KISER Attending Provider: JASON KISER Report Copy To: Signs & Symptoms: M54.16 Radiculopathy, lumbar region I10 History: Crissy Comments: Views (X-RAY, LUMBAR SPINE): AP, Lateral, L5-S1 Spot, Flexion, Extension Exam: LUMBAR SPINE 4 OR 5 VWS ======== LUMBAR SPINE 4 OR 5 VWS CLINICAL INFORMATION: pt states having lower back pain. hx of lumbar fusion. M54.16 Radiculopathy, lumbar region I10. COMPARISON: None. IMPRESSION: 1. Dextroconvex scoliosis. L4-S1 fusion. There is mild retrolisthesis of L2 on L3 and mild anterolisthesis of L4 on L5. No evidence of acute fracture. No instability on dynamic imaging. No loss of vertebral body height. Endplate and facet degenerative changes at multiple levels. Prior laminectomies in the lower lumbosacral spine. Osteopenia. Electronically signed: Ahsan Farmer. Transcribed by: [email or web address], User Resident: Electronically Signed by: AHSAN FARMER @ 02/02/2021 10:14 AM Normal [facility] Comment on above: Order Comment: Views (X-RAY, LUMBAR SPINE): AP, Lateral, L5-S1 Spot, Flexion, Extension C REACTIVE PROTEINon 021 CRP [Mass/Vol] 9.6 mg/L High 0.0-7.0 [facility] Comment on above: Performed By: #### 6 1405 #### [facility] [address] [place] [address], [facility] CBC W/DIFFon 12-15-2020 ABS IMM GRANS 0.1 10*3/uL Normal 0.0-0.2 [facility] Comment on above: Performed By: #### 5 6505, 32496 #### [facility] [address] [place] [id number], [facility] ABS NEUTROPHILS 6.1 10*3/uL Normal 1.6-7.6 [facility] Comment on above: Performed By: #### 5 6505, 01617 #### [facility] [address] [place] [address], [facility] Basophils (Bld) [#/Vol] 0.1 10*3/uL Normal 0.0-0.2 [facility] Comment on above: Performed By: #### 5 6505, 89996 #### [facility] [address] [place] [address], [facility] Basophils/100 WBC (Bld) 0.8 % Normal 0.0-1.0 [facility] Comment on above: Performed By: #### 5 6505, 81111 #### [facility] [address] [place] [address], [facility] Eosinophils (Bld) [#/Vol] 0.4 10*3/uL Normal 0.0-0.5 [facility] Comment on above: Performed By: #### 5 6505, 22641 #### [facility] [address] [place] [address], [facility] Eosinophils/100 WBC (Bld) 4.1 % Normal 0.0-6.0 [facility] Comment on above: Performed By: #### 5 6505, 98274 #### [facility] [address] [place] [address], [facility] Erythrocyte distribution width (RBC) [Ratio] 12.6 % Normal 11.5-15.0 [facility] Comment on above: Performed By: #### 5 6505, 99453 #### [facility] [address] Hematocrit (Bld) [Volume fraction] 40.2 % Normal 39.0-50.0 [facility] Comment on above: Performed By: #### 5 6505, 21963 #### [facility] [address] [place] [address], [facility] Hemoglobin (Bld) [Mass/Vol] 12.6 g/dL Low 13.0-17.0 [facility] Comment on above: Performed By: #### 5 6505, 22611 #### [facility] [address] [place] [address], [facility] IMMATURE GRANS 0.7 % Normal 0.0-1.0 [facility] Comment on above: Performed By: #### 5 6505, 57941 #### [facility] [address] Lymphocytes (Bld) [#/Vol] 2.0 10*3/uL Normal 1.2-4.0 [facility] Comment on above: Performed By: #### 5 6505, 47327 #### [facility] [address] [facility] [place] [address], [facility] Lymphocytes/100 WBC (Bld) 20.6 % Normal 20.0-45.0 [facility] Comment on above: Performed By: #### 5 6505, 98368 #### [facility] [address] [place] [address], [facility] MCH (RBC) [Entitic mass] 30.0 pg Normal 27.0-33.0 [facility] Comment on above: Performed By: #### 5 6505, 05981 #### [facility] [address] [place] [address], [facility] MCHC (RBC) [Mass/Vol] 31.3 g/dL Low 32.0-35.0 [facility] Comment on above: Performed By: #### 5 6505, 66515 #### [facility] [address] [place] [address], [facility] MCV (RBC) [Entitic vol] 95.7 fL Normal 82.0-98.0 [facility] Comment on above: Performed By: #### 5 6505, 40050 #### [facility] [address] [place] [address], [facility] Monocytes (Bld) [#/Vol] 1.2 10*3/uL High 0.1-1.0 [facility] Comment on above: Performed By: #### 5 6505, 12374 #### [facility] [address] [facility] [place] [address], [facility] MONOS 11.9 % Normal 5.0-12.0 [facility] Comment on above: Performed By: #### 5 6505, 62833 #### [facility] [address] [facility] [place] [address], [facility] Neutrophils/100 WBC (Bld) 61.9 % Normal 40.0-72.0 [facility] Comment on above: Performed By: #### 5 6505, 25323 #### [facility] [address] [facility] [place] [address], [facility] Nucleated RBC/100 WBC (Bld) [Ratio] 0 % Normal 0-0 [facility] Comment on above: Performed By: #### 5 6505, 05649 #### [facility] [address] [facility] [place] [address], [facility] PLAT CNT 335 10*3/uL Normal 150-400 [facility] Comment on above: Performed By: #### 5 6505, 85636 #### [facility] [address] [place] [address], [facility] RBC (Bld) [#/Vol] 4.20 10*6/uL Normal 4.20-5.70 [facility] Comment on above: Performed By: #### 5 6505, 67226 #### [facility] [address] [facility] [place], [place] [id number] [place] [address] WBC (Bld) [#/Vol] 9.86 10*3/uL Normal 4.00-10.60 [facility] Comment on above: Performed By: #### 5 6506, 66867 #### [facility] [address] [facility]. [place], [place] [id number] [place] [address] KNEE RIGHT 4 [facility] 1 KNEE RIGHT 4 S [facility] Department of Radiology [address] [place] [address] ======== Patient Name: SUKHDEEP SIMENTAL : 1965 Sex: M Age: Race: White Pt. Location: OUTP Patient Status: D Ordered Date: 12/15/2020 12:25:00 PM Completed Date: 12/15/2020 12:35 PM Requesting Provider: ROBBI MCKINNEY Attending Provider: ROBBI MCKINNEY Report Copy To: Signs & Symptoms: L03.115 cellulitis of rt lower limb History: Comments: evaluate Exam: KNEE RIGHT 4 [facility] ======== KNEE RIGHT 4 S 12/15/2020 12:35 PM CLINICAL INDICATIONS: L03.115 cellulitis of rt lower limb TECHNOLOGIST COMMENTS: pt states having right knee pain. hx of multiple right knee surgeries QUESTION FOR THE RADIOLOGIST: evaluate PROTOCOL: AP, Lateral, Tunnel and Tangential views were obtained. COMPARISON: None FINDINGS: There is a right knee prosthesis, without evidence of periprosthetic fracture or advanced osteolysis. Small suprapatellar effusion. IMPRESSION: No acute osseous abnormality. Small knee joint effusion. Approved by:Yash Littlejohnn1 8:20 AM. I, Alesha Jimenes,have reviewed the image(s) and agree with the findings in this report. Electronically signed: Alesha Jimenes. Transcribed by: [id number], User Resident: ALESHA MOCTEZUMAAH CONSUELO Electronically Signed by: ALESHA JIMENES @ 12/16/2020 09:18 AM I personally read this/these film(s) with this resident Normal [facility] Comment on above: Order Comment: evalu ate SEDIMENTATION RATEon 021 SED RATE 77 mm/hr High 0-10 [facility] Comment on above: Performed By: #### 5 [id number], [id number] #### [facility] [address] COVID-19 Positive/Negativeon 05-05-2020 COVID-19 Positive/Negative Negative Negative [facility] Comment on above: Reference: NegativeT esting for SARS-CoV-2 by RT-PCRThis test was developed and its performance characteristics determined by [employer] ([employer]) and validated at the [facility]. This test has not been FDA cleared or approved. This test has been authorized by FDA under an Emergency Use Authorization (EUA). This test has been validated in accordance with the FDA's Guidance Document (Policy for Diagnostics Testing in Laboratories Certified to Perform High Complexity Testing under CLIA prior to Emergency Use Authorization for Coronavirus Disease-2019 during the Public Health Emergency) issued on May 28, 2019. This test is only authorized for the duration of time the declaration that circumstances exist justifying the authorization of the emergency use of in vitro diagnostic tests for detection of SARS-CoV-2 virus and/or diagnosis of COVID-19 infection under section 564(b)(1) of the Act, 21 U.S.C. 360bbb-3(b)(1), unless the authorization is terminated or revoked sooner. Estimated glomerular filtrat ion rate (GFR) non- Americanon 05-05-2020 GFR/1.73 sq M predicted among non-blacks MDRD (S/P/Bld) [Vol rate/Area] mL/min/{1.73_m2} [facility] Otheron 05-05-2020 GFR/1.73 sq M.predicted MDRD (S/P/Bld) [Vol rate/Area] mL/min/{1.73_m2} [facility] Comment on above: GFR estimated refere nce range: According to KDOQI guidelines, <60 ml/min/1.73m2 is sufficient to diagnose a patient with chronic kidney disease. Pharmacy Creatinine Clearance (Chem N/A [facility] Coronavirus 2019 PCR Interp N/A [facility] Serum or plasma calcium yeni urement (mass/volume)on 05-05-2020 Calcium [Mass/Vol] 8.6 mg/dL 8.2-10.2 [facility] Serum or plasma chloride myrna surement (moles/volume)on 05-05-2020 Chloride [Moles/Vol] 104 mmol/L 95-114 [facility] Serum or plasma creatinine m easurement with calculation of estimated glomerular filtron 05-05-2020 Creatinine [Mass/Vol] 1.14 mg/dL 0.64-1.27 [facility] Serum or plasma glucose yeni urement (mass/volume)on 05-05-2020 Glucose [Mass/Vol] 178 mg/dL 70-100 [facility] Comment on above: ADA recommended refe rence rangeRandom Glucose Reference Range is dependent on time and content of last meal. Glucose of more than 200 mg/dL in a nonstressed, ambulatory subject supports the diagnosis of Diabetes Mellitus. Serum or plasma potassium me asurement (moles/volume)on 05-05-2020 Potassium [Moles/Vol] 4.0 mmol/L 3.5-5.1 [facility] Serum or plasma sodium measu rement (moles/volume)on 05-05-2020 Sodium [Moles/Vol] 141 mmol/L 136-146 [facility] Serum or plasma total carbon dioxide measurement (moles/volume)on 05-05-2020 CO2 [Moles/Vol] 27.4 mmol/L 22.0-30.0 [facility] Serum or plasma urea nitroge n measurement (mass/volume)on 05-05-2020 Urea nitrogen [Mass/Vol] 18 mg/dL 9-23 [facility] .eGFRon 06-10-2019 eGFR AA >60 Normal >=60 [facility] Comment on above: Result Comment: Resu lt = 0-14.9 mL/min/1.73 m2 Kidney failure or Dialysis Result = 15-29 mL/min/1.73 m2 Severe decrease in GFR Result = 30-59 mL/min/1.73 m2 Moderate decrease in GFR Result >= 60 mL/min/1.73 m2 Normal or increased GFR Performed By: #### E GFR #### [address] [address] eGFR Non-AA >60 Normal >=60 [facility] Comment on above: Result Comment: Resu lt = 0-14.9 mL/min/1.73 m2 Kidney failure or Dialysis Result = 15-29 mL/min/1.73 m2 Severe decrease in GFR Result = 30-59 mL/min/1.73 m2 Moderate decrease in GFR Result >= 60 mL/min/1.73 m2 Normal or increased GFR Chronic kidney disease is defined as either kidney damage or GFR < 60 mL/min/1.73 m2 for >= 3 months. Kidney damage is defined as pathologic abnormalities or markers of damage including abnormalities in blood or urine tests or imaging studies. This GFR is NOT used for medication dosing. Performed By: #### E GFR #### [address] [address] Basic Metabolic Profileon Anion gap [Moles/Vol] 15 mmol/L Normal 7-17 [facility] Comment on above: Performed By: #### C [id number] #### [address] [address] Calcium [Mass/Vol] 9.8 mg/dL Normal 8.5-10.3 [facility] Comment on above: Performed By: #### C [id number] #### [address] [place] [address] Chloride [Moles/Vol] 103 mmol/L Normal 98-110 [facility] Comment on above: Performed By: #### C [id number] #### [address] [address] CO2 [Moles/Vol] 27 mmol/L Normal 22-32 [facility] Comment on above: Performed By: #### C [id number] #### [address] [address] Creatinine [Mass/Vol] 0.98 mg/dL Normal 0.61-1.24 [facility] Comment on above: Performed By: #### C [id number] #### [address] [address] Glucose [Mass/Vol] 198 mg/dL High 70-99 [facility] Comment on above: Performed By: #### C [id number] #### [address] [address] Potassium [Moles/Vol] 4.0 mmol/L Normal 3.4-4.8 [facility] Comment on above: Performed By: #### C [id number] #### [address] [address] Sodium [Moles/Vol] 141 mmol/L Normal 133-142 [facility] Comment on above: Performed By: #### C [id number] #### [address] [address] Urea nitrogen [Mass/Vol] 18 mg/dL Normal 8-26 [facility] Comment on above: Performed By: #### C [id number] #### [address] [address] Urea nitrogen/Creatinine [Mass ratio] 18.4 mg/mg Normal 10.0-20.0 [facility] Comment on above: Performed By: #### C [id number] #### [address] [place] [address] CBCon 06-10-2019 Erythrocyte distribution width (RBC) [Ratio] 13.0 % Normal 11.6-14.8 [facility] Comment on above: Performed By: #### C BCI #### [address] [address] Hematocrit (Bld) [Volume fraction] 46.2 % Normal 41.0-53.0 [facility] Comment on above: Performed By: #### C BCI #### [address] [address] Hemoglobin (Bld) [Mass/Vol] 16.2 g/dL Normal 13.5-17.5 [facility] Comment on above: Performed By: #### C BCI #### [address] [address] MCH (RBC) [Entitic mass] 32.1 pg Normal 27.0-35.0 [facility] Comment on above: Performed By: #### C BCI #### [address] [address] MCHC (RBC) [Mass/Vol] 35.0 % Normal 31.0-37.0 [facility] Comment on above: Performed By: #### C BCI #### [address] [address] MCV (RBC) [Entitic vol] 91.6 fL Normal 80.0-100.0 [facility] Comment on above: Performed By: #### C BCI #### [address] [address] Platelet mean volume (Bld) [Entitic vol] 7.5 fL Normal 6.7-10.6 [facility] Comment on above: Performed By: #### C BCI #### [address] [address] Platelets (Bld) [#/Vol] 263 x10*3/mcL Normal 150-350 [facility] Comment on above: Performed By: #### C BCI #### [address] [address] RBC (Bld) [#/Vol] 5.04 x10*6/mcL Normal 4.30-5.80 [facility] Comment on above: Performed By: #### C BCI #### [address] [address] WBC (Bld) [#/Vol] 9.7 x10*3/mcL Normal 4.5-11.0 [facility] Comment on above: Performed By: #### C BCI #### [address] [address] Hgb A1con 06-10-2019 HbA1c (Bld) [Mass fraction] 134 mg/dL High 68-114 [facility] Comment on above: Result Comment: Math ematical Calc approx. The mean gluc equivalency of A1c Performed By: #### H BA1C #### [address] [address] HbA1c (Bld) [Mass fraction] 6.3 % A1c High 4.0-5.6 [facility] Comment on above: Result Comment: Refe rence Range: 4.0 - 5.6 % Normal 5.7 - 6.4 % Pre-Diabetes > 6.5 % Diabetes Performed By: #### H BA1C #### [address] [address] MRSA, PCRon 06-10-2019 INR Coag (Bld) [Relative time] Negative Normal [facility] Comment on above: Result Comment: The [employer] Xpert MRSA Assay is a qualitative in vitro diagnostic test designed for rapid detection of Methicillin-Resistant Staphylococcus aureus (MRSA) from nasal swabs in patients at risk for nasal colonization.The test utilizes automated real-time polymerase chain reaction (PCR) to detect MRSA DNA,because the detection of MRSA is dependent on the number of organisms present. A positive test result does not necessarily indicate the presence of viable organism. It is however,presumptive for the presence of MRSA.Test results might be affected by concurrent antibiotic therapy. Therefore, therapeutic success or failure cannot be assessed using this test because DNA might persist following antimicrobial therapy. Mutations or polymorphisms in primer or probe binding regions may affect detection of new or unknown MRSA variants resulting in a false negative result. Results from the Xpert MRSA Assay should be interpreted in conjunction with other laboratory and clinical data available to the clinician. Performed By: #### M RSAPC #### [address] [address] PTon 06-10-2019 INR Coag (PPP) [Relative time] 1.0 {INR} Normal <=3.5 [facility] Comment on above: Result Comment: INR has no normal range. INR Therapeutic range is: 2.0-3.0 (AF, CVA, TIAs, DVT prophylaxis, acute DVT) 2.5-3.5 ([facility] heart valves, recurrent thrombosis/emboli) Performed By: #### P TINR #### [address] [address] PT Coag (PPP) [Time] 11.9 s Normal 8.9-11.9 [facility] Comment on above: Performed By: #### P TINR #### [address] [address] PTTon 06-10-2019 aPTT Coag (Bld) [Time] 23.0 s Normal 19.2-27.8 [facility] Comment on above: Performed By: #### P TT #### [address] [address] XR Chest 2 Viewson 0 XR Chest 2 Views History: Preop for lumbar surgery There is no prior exam for comparison. There is no pulmonary vascular congestion. There is moderate ectasia of the thoracic aorta. There is no cardiac enlargement. There is no nodule, confluent infiltrate, or mass. There is no pleural effusion. There is no pneumothorax. No significant osseous abnormality is seen. IMPRESSION: No acute findings. Final Dictated by: Diana Delatorre MD Dictated DT/TM: 06/10/2019 2:08 pm Signed by: Diana Delatorre MD Signed (Electronic Signature): 06/10/2019 2:11 pm (If Report Is Signed, Electronically Signed in Other Vendor System) Normal [facility] XR LUMBAR SPINE (2-3 VIEWS)o n 04-16-2019 XR LUMBAR SPINE (2-3 VIEWS) EXAMINATION: 2 XRAY VIEWS OF THE LUMBAR SPINE 04/16/2019 10:21 am COMPARISON: None. HISTORY: ORDERING SYSTEM PROVIDED HISTORY: Injury Back pain after fall. FINDINGS: Lateral flexion extension views of the lumbar spine. With extension, no instability. Range of motion is reduced. With flexion, no substantial interval movement. No pathologic malalignment. Diffuse disc degeneration greatest in the lower lumbar spine. Spinous processes appear intact. IMPRESSION: Limited range of motion without evidence of instability. Multilevel disc degeneration. Interpreted by: Juwan Kumar MD Signed by: Juwan Kumar MD 04/16/19 Final result Normal [facility] Limited range of motion without evidence of instability. Multilevel disc degeneration. [facility] [place] EXAMINATION: 2 XRAY VIEWS OF THE LUMBAR SPINE 04/16/2019 10:21 am COMPARISON: None. HISTORY: ORDERING SYSTEM PROVIDED HISTORY: Injury Back pain after fall. FINDINGS: Lateral flexion extension views of the lumbar spine. With extension, no instability. Range of motion is reduced. With flexion, no substantial interval movement. No pathologic malalignment. Diffuse disc degeneration greatest in the lower lumbar spine. Spinous processes appear intact. [employer] [place] [facility], [employer] Incoming Radiant Results From [employer] - 04/16/2019 11:16 AM EST EXAMINATION: 2 XRAY VIEWS OF THE LUMBAR SPINE 04/16/2019 10:21 am COMPARISON: None. HISTORY: ORDERING SYSTEM PROVIDED HISTORY: Injury Back pain after fall. FINDINGS: Lateral flexion extension views of the lumbar spine. With extension, no instability. Range of motion is reduced. With flexion, no substantial interval movement. No pathologic malalignment. Diffuse disc degeneration greatest in the lower lumbar spine. Spinous processes appear intact. IMPRESSION: Limited range of motion without evidence of instability. Multilevel disc degeneration. [employer] [facility] [place] CT LUMBAR SPINE WO CONTRASTo n 04-11-2019 CT LUMBAR SPINE WO CONTRAST EXAMINATION: CT OF THE LUMBAR SPINE WITHOUT CONTRAST 04/11/2019 TECHNIQUE: CT of the lumbar spine was performed without the administration of intravenous contrast. Multiplanar reformatted images are provided for review. Dose modulation, iterative reconstruction, and/or weight based adjustment of the mA/kV was utilized to reduce the radiation dose to as low as reasonably achievable. COMPARISON: None HISTORY: ORDERING SYSTEM PROVIDED HISTORY: fall on ice. felt pop today. TECHNOLOGIST PROVIDED HISTORY: fall on ice. felt pop today. Reason for Exam: BACK PAIN Acuity: Acute Type of Exam: Initial Mechanism of Injury: PT STATES HE FELL AT WORK YESTERDAY, RE-INJURED IT TODAY FINDINGS: BONES/ALIGNMENT: No acute fracture. No subluxation. DEGENERATIVE CHANGES: Moderate-severe multilevel degenerative changes. SOFT TISSUES/RETROPERITONEU M: No acute paraspinal abnormality. IMPRESSION: Lumbar spine degenerative changes without acute findings. Interpreted by: Ahsan Guidry MD Signed by: Ahsan Guidry MD 04/11/19 Final result Normal [facility] XR PELVIS (1-2 VIEWS)on 03-28 XR PELVIS (1-2 VIEWS) EXAMINATION: ONE XRAY VIEW OF THE PELVIS 04/11/2019 1:24 pm COMPARISON: None. HISTORY: ORDERING SYSTEM PROVIDED HISTORY: fall right buttock pain TECHNOLOGIST PROVIDED HISTORY: fall right buttock pain Reason for Exam: fall buttocks pain Acuity: Acute Type of Exam: Initial FINDINGS: No acute fracture. No widening of the sacroiliac joints. Degenerative changes within the lower lumbar spine. Mild bilateral hip osteoarthritis. IMPRESSION: No acute findings. Interpreted by: Ahsan Guidry MD Signed by: Ahsan Guidry MD 04/11/19 Final result Normal [facility] No acute findings. [employer] Phone: EXAMINATION: ONE XRA Y VIEW OF THE PELVIS 04/11/2019 1:24 pm COMPARISON: None. HISTORY: ORDERING SYSTEM PROVIDED HISTORY: fall right buttock pain TECHNOLOGIST PROVIDED HISTORY: fall right buttock pain Reason for Exam: fall buttocks pain Acuity: Acute Type of Exam: Initial FINDINGS: No acute fracture. No widening of the sacroiliac joints. Degenerative changes within the lower lumbar spine. Mild bilateral hip osteoarthritis. [employer] Phone: [employer], [employer] Incoming Radiant Results From [employer] - 04/11/2019 2:02 PM EST EXAMINATION: ONE XRAY VIEW OF THE PELVIS 04/11/2019 1:24 pm COMPARISON: None. HISTORY: ORDERING SYSTEM PROVIDED HISTORY: fall right buttock pain TECHNOLOGIST PROVIDED HISTORY: fall right buttock pain Reason for Exam: fall buttocks pain Acuity: Acute Type of Exam: Initial FINDINGS: No acute fracture. No widening of the sacroiliac joints. Degenerative changes within the lower lumbar spine. Mild bilateral hip osteoarthritis. IMPRESSION: No acute findings. [employer] Work Phone: Vital Signs Date Time Vital Sign Value Performing Clinician Facility 11-07-2023 11:09-0400 Body height 175.26 cm [facility] 11-07-2023 11:09-0400 Body mass index (BMI) [Ratio] 39 kg/m2 [facility] 11-07-2023 11:09-0400 Body temperature 97.4 [degF] [facility] 11-07-2023 11:09-0400 Body weight 119.86 kg [facility] 11-07-2023 11:09-0400 Diastolic blood pressure 85 mm[Hg] [facility] 11-07-2023 11:09-0400 Heart rate 88 /min [facility] 11-07-2023 11:09-0400 Respiratory rate 18 /min [facility] 11-07-2023 11:09-0400 SaO2% (BldA) [Mass fraction] 98 % [facility] 11-07-2023 11:09-0400 Systolic blood pressure 123 mm[Hg] [facility] 02-07-2023 14:37-0500 Body temperature 98.6 [degF] Riddhi Schabel RANGE MECHANIC[employer] Work Phone: [facility] 02-07-2023 14:37-0500 Body weight 122.92 kg Riddhi Schabel RANGE MECHANIC[employer] Work Phone: [facility] 02-07-2023 14:37-0500 Diastolic blood pressure 80 mm[Hg] Riddhi Schabel RANGE MECHANIC[employer] Work Phone: [facility] 02-07-2023 14:37-0500 Heart rate 79 /min Riddhi Schabel RANGE MECHANIC[employer] Work Phone: [facility] 02-07-2023 14:37-0500 SaO2% (BldA) [Mass fraction] 98 % Riddhiyuly Goss RANGE MECHANIC[employer] Work Phone: [facility] 02-07-2023 14:37-0500 Systolic blood pressure 157 mm[Hg] Riddhi Ana Paula RANGE MECHANIC.[employer] Work Phone: [facility] 02-04-2023 09:16-0500 Blood Pressure Location Cecelia MURILLO [facility] 02-04-2023 09:16-0500 Diastolic blood pressure 88 mm[Hg] Cecelia MURILLO [facility] 02-04-2023 09:16-0500 Heart rate 79 /min Cecelia MURILLO [facility] 02-04-2023 09:16-0500 Respiratory rate 16 /min Cecelia MURILLO [facility] 02-04-2023 09:16-0500 Systolic blood pressure 139 mm[Hg] Cecelialitzy MURILLO [facility] 12-20-2022 14:26-0400 Body height 175.3 cm Helen Morgan PA-C Work Phone: [facility] 12-20-2022 14:26-0400 Body weight 123.11 kg Helen Morgan PA-C Work Phone: [facility] 12-20-2022 14:26-0400 Diastolic blood pressure 84 mm[Hg] Helen Morgan PA-C Work Phone: [facility] 12-20-2022 14:26-0400 Heart rate 76 /min Helen Morgan PA-C Work Phone: [facility] 12-20-2022 14:26-0400 SaO2% (BldA) [Mass fraction] 97 % Helen Morgan PA-C Work Phone: [facility] 12-20-2022 14:26-0400 Systolic blood pressure 165 mm[Hg] Helen Morgan PA-C Work Phone: [facility] 12-06-2022 15:00-0400 Body height 175.26 cm Oumou Corinna Other [employer] Other 12-06-2022 15:00-0400 Body mass index (BMI) [Ratio] 39.9 kg/m2 Oumou Corinna Other [facility] [employer] Other 12-06-2022 15:00-0400 Body temperature 98.1 [degF] Oumou Corinna Other [employer] Other 12-06-2022 15:00-0400 Body weight 122.56 kg Oumou Corinna Other [employer] Other 12-06-2022 15:00-0400 Diastolic blood pressure 81 mm[Hg] Oumou Corinna Other [employer] Other 12-06-2022 15:00-0400 Respiratory rate 20 /min Oumou Corinna Other [employer] Other 12-06-2022 15:00-0400 SaO2% (BldA) [Mass fraction] 97 % Oumou Corinna Other [employer] Other 12-06-2022 15:00-0400 Systolic blood pressure 127 mm[Hg] Oumou Corinna Other [employer] Other 11-05-2022 14:17-0400 Body height 175.3 cm Edd Mathew MD Work Phone: [facility] 11-05-2022 14:17-0400 Body weight 123.97 kg Edd Mathew MD Work Phone: [facility] 11-05-2022 14:17-0400 Diastolic blood pressure 84 mm[Hg] Edd Mathew MD Work Phone: [facility] 11-05-2022 14:17-0400 Heart rate 66 /min Edd Mathew MD Work Phone: [facility] 11-05-2022 14:17-0400 SaO2% (BldA) [Mass fraction] 100 % Edd Mathew MD Work Phone: [facility] 11-05-2022 14:17-0400 Systolic blood pressure 156 mm[Hg] Edd Mathew MD Work Phone: [facility] 10-17-2022 15:41-0400 Blood Pressure Location Cj SQUIRES [facility] 10-17-2022 15:41-0400 Diastolic blood pressure 84 mm[Hg] Cj RICKL [facility] [place] 10-17-2022 15:41-0400 Heart rate 70 /min Cj NILL [facility] 10-17-2022 15:41-0400 Respiratory rate 16 /min Cj RICKL [facility] [place] 10-17-2022 15:41-0400 Systolic blood pressure 118 mm[Hg] Cj NILL [facility] 06-21-2022 10:20-0400 Body height 175.26 cm Oumou Corinna Other [employer] Other 06-21-2022 10:20-0400 Body mass index (BMI) [Ratio] 40.02 kg/m2 Oumou Corinna Other [employer] Other 06-21-2022 10:20-0400 Body temperature 97.6 [degF] Oumou Corinna Other [employer] Other 06-21-2022 10:20-0400 Body weight 122.93 kg Oumou Corinna Other [employer] Other 06-21-2022 10:20-0400 Diastolic blood pressure 80 mm[Hg] Oumou Corinna Other [employer] Other 06-21-2022 10:20-0400 Respiratory rate 20 /min Oumou Corinna Other [employer] Other 06-21-2022 10:20-0400 SaO2% (BldA) [Mass fraction] 97 % Oumou Corinna Other [employer] Other 06-21-2022 10:20-0400 Systolic blood pressure 114 mm[Hg] Oumou Corinna Other [employer] Other 03-19-2022 09:48-0500 Blood Pressure Location Cecelia MURILLO [facility] 03-19-2022 09:48-0500 Diastolic blood pressure 88 mm[Hg] Cecelia MURILLO [facility] 03-19-2022 09:48-0500 Heart rate 78 /min Cecelia MURILLO [facility] 03-19-2022 09:48-0500 Respiratory rate 16 /min Cecelia MURILLO [facility] 03-19-2022 09:48-0500 Systolic blood pressure 139 mm[Hg] Cecelia MURILLO [facility] 01-11-2022 11:15-0500 Body temperature 98.1 [degF] PHYSICIAN NO [facility] 01-11-2022 11:15-0500 Diastolic blood pressure 88 mm[Hg] PHYSICIAN NO [facility] 01-11-2022 11:15-0500 Heart rate 79 /min PHYSICIAN NO [facility] 01-11-2022 11:15-0500 Respiratory rate 18 /min PHYSICIAN NO [facility] 01-11-2022 11:15-0500 SaO2% (BldA) [Mass fraction] 96 % PHYSICIAN NO [facility] 01-11-2022 11:15-0500 Systolic blood pressure 137 mm[Hg] PHYSICIAN NO [facility] 12-15-2021 12:20-0400 Body height 175.26 cm Estephanie Lowry Other [employer] Other 12-15-2021 12:20-0400 Body mass index (BMI) [Ratio] 41.49 kg/m2 Estephanie Lowry Other [employer] Other 12-15-2021 12:20-0400 Body temperature 98.6 [degF] Estephanie Lowry Other [employer] Other 12-15-2021 12:20-0400 Body weight 127.46 kg Estephanie Lowry Other [employer] Other 12-15-2021 12:20-0400 Diastolic blood pressure 96 mm[Hg] Estephanie Lowry Other [employer] Other 12-15-2021 12:20-0400 Respiratory rate 18 /min Estephanie Lowry Other [employer] Other 12-15-2021 12:20-0400 SaO2% (BldA) [Mass fraction] 97 % Estephanie Lowry Other [employer] Other 12-15-2021 12:20-0400 Systolic blood pressure 132 mm[Hg] Estephanie Lowry Other [employer] Other 10-25-2021 14:00-0400 Body height 175.26 cm Oumou Corinna Other [employer] Other 10-25-2021 14:00-0400 Body mass index (BMI) [Ratio] 42.02 kg/m2 Oumou Corinna Other [employer] Other 10-25-2021 14:00-0400 Body temperature 96.8 [degF] Oumou Corinna Other [employer] Other 10-25-2021 14:00-0400 Body weight 129.09 kg Oumou Corinna Other [employer] Other 10-25-2021 14:00-0400 Diastolic blood pressure 69 mm[Hg] Oumou Corinna Other [employer] Other 10-25-2021 14:00-0400 Respiratory rate 20 /min Oumou Corinna Other [employer] Other 10-25-2021 14:00-0400 SaO2% (BldA) [Mass fraction] 98 % Oumou Corinna Other [employer] Other 08-31-2022 14:00-0400 Systolic blood pressure 109 mm[Hg] Oumou Weinstein Other [place] [facility] Other 05-26-2021 10:45-0400 Body temperature 98.8 [degF] Octavio Mcclellan DO Work Phone: [employer] 05-26-2021 10:45-0400 Respiratory rate 18 /min Octavio Mcclellan DO Work Phone: [employer] 05-26-2021 10:45-0400 SaO2% (BldA) [Mass fraction] 98 % Octavio Mcclellan DO Work Phone: [facility] 05-26-2021 07:30-0400 Heart rate 105 /min Octavio Mcclellan DO Work Phone: [facility] 05-25-2021 23:20-0400 Diastolic blood pressure 85 mm[Hg] Octavio Mcclellan DO Work Phone: [facility] 05-25-2021 23:20-0400 Systolic blood pressure 130 mm[Hg] Octavio Mcclellan DO Work Phone: [facility] 05-24-2021 10:15-0400 Body height 175.3 cm Octavio Mcclellan DO Work Phone: [facility] 05-24-2021 10:15-0400 Body mass index (BMI) [Ratio] 50.65 kg/m2 Octavio Mcclellan DO Work Phone: [facility] 05-24-2021 10:15-0400 Body weight 155.58 kg Octavio Mcclellan DO Work Phone: [facility] 05-08-2021 11:04-0400 Body height 175.3 cm [facility] 2 [facility] 05-08-2021 11:04-0400 Body mass index (BMI) [Ratio] 51.98 kg/m2 [facility] 05-08-2021 11:04-0400 Body temperature 97.3 [degF] [facility] 05-08-2021 11:04-0400 Body weight 159.67 kg [facility] 2 [facility] 05-08-2021 11:04-0400 Diastolic blood pressure 83 mm[Hg] Stv 2 [facility] 05-08-2021 11:04-0400 Heart rate 126 /min [facility] 2 [facility] 05-08-2021 11:04-0400 Respiratory rate 20 /min [facility]-08[facility]21 11:04-0400 SaO2% (BldA) [Mass fraction] 95 % [facility] 2 [facility] 05-08-2021 11:04-0400 Systolic blood pressure 121 mm[Hg] [address] 01-08-2020 14:04-0500 BMI (Body Mass Index) 47.99 kg/m2 [facility] [employer] [facility] 01-08-2020 14:04-0500 Body Temperature 96.69 [degF] [facility] [employer]ion 01-08-2020 14:04-0500 Body weight 147.42 kg [facility] [employer] s tem 01-08-2020 14:04-0500 Height 175.3 cm [facility] [employer] [facility] 04-11-2019 12:42-0500 BMI (Body Mass Index) 44.3 kg/m2 [facility] Phone: 04-11-2019 12:42-0500 Body Temperature 97.39 [degF] [facility] Phone: 04-11-2019 12:42-0500 Body weight 136.08 kg [facility] Phone: 04-11-2019 12:42-0500 BP Diastolic 98 mm[Hg] [facility] Phone: 04-11-2019 12:42-0500 BP Systolic 196 mm[Hg] [facility] Phone: 04-11-2019 12:42-0500 Height 175.3 cm [facility] Phone: 04-11-2019 12:42-0500 Pulse (Heart Rate) 72 /min [facility] Phone: 04-11-2019 12:42-0500 Pulse Oximetry 96 % [facility] Work Phone: 04-11-2019 12:42-0500 Respiratory Rate 16 /min [facility] Work Phone: Encounters Encounter Date Encounter Type Care Provider Facility Start: 02-03-2024 ambulatory Cecelia MURILLO Salasfrances ty:MELANI JuniorLaura Start: 11-07-2023 End: 11-07-2023 ambulatory [facility] Work Phone: Start: 11-07-2023 End: 11-07-2023 Patient encounter procedure [facility] Nephrology Reg Work Phone: Start: 10-29-2023 Non-patient / Non-visit [facility] Work Phone: Start: 10-04-2023 Telephone encounter Edd crabtree MD Work Phone: Neurology Comment on above: Results Start: 08-15-2023 End: 08-15-2023 ambulatory AHSAN S RINA [facility] Start: 07-30-2023 Telephone encounter Edd crabtree MD Work Phone: Neurology Comment on above: Appointment; Orders Start: 07-23-2023 Telephone encounter Edd crabtree MD Work Phone: Neurology Start: 05-08-2023 End: 05-13-2023 ambulatory Edd Mathew MD Work Phone: Neurosurgery Comment on above: Radiculopathy, lumba r region (Primary Dx) Start: 05-08-2023 End: 05-08-2023 Telemedicine consultation with patient Edd Mathew MD Work Phone: [facility] Start: 05-08-2023 Telephone encounter Cherelle Oleary RN [facility] Start: 05-07-2023 Telephone encounter Cherelle Oleary RN [facility] Start: 04-16-2023 Telephone encounter Edd crabtree MD Work Phone: Neurology Comment on above: Imaging Disc Start: 04-10-2023 Telephone encounter Edd crabtree MD Work Phone: Neurology Comment on above: PT Certification Start: 04-09-2023 Telephone encounter Edd crabtree MD Work Phone: Neurology Start: 03-25-2023 End: 03-25-2023 ambulatory EDD MATHEW Facility:[facility] Start: 02-14-2023 End: 02-14-2023 ambulatory AHSAN [facility] Start: 02-07-2023 End: 02-07-2023 Patient encounter procedure Riddhi Goss [employer]CH[employer]MICA [employer]ING Work Phone: Neurosurgery Comment on above: 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) Start: 02-07-2023 End: 02-07-2023 ambulatory HELEN MORGAN Facility:[facility] Start: 02-07-2023 Telephone encounter Edd crabtree MD Work Phone: Neurosurgery Start: 02-04-2023 End: 02-05-2023 ambulatory Cecelia MURILLO Facility:[facility] Start: 02-04-2023 End: 02-04-2023 Patient encounter procedure Cecelia MURILLO [facility] Start: 01-23-2023 Telephone encounter Edd crabtree MD Work Phone: Neurology Comment on above: Received Outside Med ical Records ([facility]) Start: 12-21-2022 Telephone encounter Edd crabtree MD Work Phone: Neurology Comment on above: Medication Problem Start: 12-20-2022 End: 12-20-2022 Patient encounter procedure Helen Morgan PATed Work Phone: Neurosurgery Comment on above: 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) Start: 12-20-2022 End: 12-20-2022 ambulatory MYRNA SCHRADER Facility:[facility] Start: 12-18-2022 Telephone encounter Derick Isabel MD Work Phone: NOC Comment on above: Opened In Error Start: 12-14-2022 Telephone encounter Edd crabtree MD Work Phone: Neurology Comment on above: FMLA Paperwork Start: 12-13-2022 Telephone encounter Edd crabtree MD Work Phone: Neurosurgery Comment on above: post op update Start: 12-12-2022 Telephone encounter Brittany gaming PA-C Work Phone: Neurology Comment on above: Medication Problem Start: 12-07-2022 End: 12-11-2022 Evaluation and management of inpatient EDD MATHEW Facility:[facility] Start: 12-06-2022 End: 12-06-2022 ambulatory Oumou Weinstein Other [employer] Other Start: 12-06-2022 Office outpatient vi sit 25 minutes Oumou Weinstein [facility] Nephrology Reg Start: 11-21-2022 End: 11-21-2022 ambulatory CJ GALLOWAY Facility:[facility] Start: 11-21-2022 End: 11-21-2022 ambulatory DERICK ISABEL Facility:[facility] Start: 11-21-2022 End: 11-21-2022 ambulatory DERICK ISABEL Facility: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) Start: 11-05-2022 End: 11-05-2022 ambulatory EDD MATHEW Facility:[facility] Start: 10-17-2022 End: 10-18-2022 ambulatory Cj Jj PRABHJOTKelly Facility:[facility] Start: 10-17-2022 End: 10-17-2022 Patient encounter procedure Cj Jj TAVIA [facility] Nill/Nathanael [facility] Start: 10-12-2022 End: 10-13-2022 ambulatory [facility] Start: 10-04-2022 End: 10-05-2022 ambulatory [facility] Start: 09-20-2022 End: 09-20-2022 ambulatory Oumou Corinna Other [employer] Other Start: 09-20-2022 Chart abstracting None (Historical) Neurology Start: 09-20-2022 Telephone encounter Oumou Corinna [facility] Start: 09-05-2022 ambulatory Cj SQUIRES Facility :[facility] Start: 08-15-2022 End: 08-15-2022 ambulatory [facility] Start: 07-16-2022 End: 07-17-2022 ambulatory Cecelia MURILLO Facility:[facility] Start: 07-06-2022 End: 07-07-[address] CECELIA MURILLO . Facility:[facility] Start: 06-22-2022 End: 06-23-2022 ambulatory [facility] Start: 06-21-2022 End: 06-21-2022 ambulatory Oumou Corinna Other [employer] [facility] [employer] Other Start: 06-21-2022 Office outpatient vi sit 25 minutes Oumou Corinna [facility] Start: 06-11-2022 End: 06-12-2022 ambulatory OUMOU CORINNA Facility:[facility] Start: 04-30-2022 End: 05-01-2022 ambulatory Cecelia MURILLO Facility:[facility] Start: 04-18-[address] [facility] Start: 04-13-2022 End: 04-14-2022 ambulatory [facility] Start: 04-03-2022 End: 04-03-2022 ambulatory Oumou Weinstein Other [place] LMN-1 Other Start: 04-03-2022 Telephone encounter Oumou Weinstein [facility] Start: 03-28-2022 Evaluation and manag ement of inpatient [facility] Start: 03-28-2022 ambulatory [facility] Start: 03-28-2022 End: 03-29-2022 Evaluation and management of inpatient [facility] Start: 03-20-2022 Encounter for preprocedural laboratory examination DR DOCTOR MILES [facility] Start: 03-19-2022 End: 03-20-2022 ambulatory Cecelia MURILLO Facility:[facility] Start: 03-19-2022 End: 03-19-2022 Patient encounter procedure Cecelia MURILLO [facility] Start: 03-15-2022 End: 03-16-[address] DOCTOR MILES Facility:[facility] Start: 03-15-2022 End: 03-16-2022 Encounter for preprocedural laboratory examination DR DOCTOR MILES Facility:[facility] Start: 03-12-2022 End: 03-13-[address] CECELIA MURILLO . Facility:[facility] Start: 03-08-2022 End: 03-09-[address] DOCTOR MILES Facility:[facility] Start: 02-23-2022 ambulatory JASON KISER [facility] Start: 02-23-2022 End: 02-23-2022 ambulatory [facility] Start: 01-27-2022 Encounter for genera l adult medical examination without abnormal findings DR DERICK ISABEL . [facility] Start: 01-24-2022 End: 01-25-[address] DERICK ISABEL . Facility:[facility] Start: 01-24-2022 End: 01-25-2022 Encounter for general adult medical examination without abnormal findings DR DERICK ISABEL . Facility:[facility] Start: 01-22-2022 End: 01-22-2022 ambulatory Oumou Corinna Other [employer] Other Start: 01-22-2022 Telephone encounter Oumou Corinna [facility] Start: 01-17-2022 End: 01-17-2022 [facility] Start: 01-12-2022 End: 01-13-2022 ambulatory [facility] Start: 01-11-2022 End: 01-11-2022 ambulatory PHYSICIAN NO FAMILY Facility:[facility] Start: 01-11-2022 End: 01-11-2022 ambulatory PHYSICIAN NO [facility] Work Phone: Start: 01-11-2022 End: 01-11-2022 Discharged Recurring PHYSICIAN NO [facility]-Infusion Therapy - O/P Start: 01-10-2022 End: 01-10-2022 ambulatory Oumou Corinna Other [employer] Other Start: 01-10-2022 Telephone encounter Oumou Corinna [facility] Start: 01-02-2022 End: 01-02-2022 ambulatory Oumou Corinna Other [employer] Other Start: 01-02-2022 Telephone encounter Oumou Corinna [facility] Start: 01-01-2022 End: 01-01-2022 ambulatory Oumou Corinna Other [employer] Other Start: 01-01-2022 Telephone encounter Oumou Corinna [facility] Start: 12-27-2021 Encounter for preprocedural laboratory examination [facility] Start: 12-27-2021 Evaluation and manag ement of inpatient [facility] Start: 12-27-2021 End: 01-02-2022 Encounter for preprocedural laboratory examination [facility] Start: 12-27-2021 End: 01-02-2022 Evaluation and management of inpatient [facility] Start: 12-21-2021 End: 12-22-[address] DERICK ISABEL . Facility:[facility] Start: 12-20-2021 End: 12-20-2021 ambulatory [facility] Start: 12-15-2021 Office outpatient vi sit 15 minutes Estephanie Lowry [facility] Start: 12-15-2021 Telephone encounter Oumou Corinna [facility] Start: 12-15-2021 End: 12-15-2021 ambulatory Estephanie Lowry [facility] [employer] Other Start: 12-15-2021 End: 12-15-2021 Departed Referred [employer]-C Estephanie Lowry Work Phone: [facility] Start: 12-01-[address] [facility] Start: 12-01-2021 End: 12-01-2021 ambulatory [facility] Start: 11-24-2021 End: 11-25-2021 ambulatory OUMOU CORINNA Facility:[facility] Start: 11-15-2021 End: 11-15-2021 ambulatory OUMOU CORINNA Facility:[facility] Start: 11-14-2021 End: 11-15-2021 ambulatory OUMOU CORINNA Facility:[facility] Start: 11-01-2021 End: 11-02-[address] DERICK ISABEL . Facility:[facility] Start: 10-31-2021 End: 11-01-[address] DERICK ISABEL . Facility:[facility] Start: 10-25-2021 End: 10-25-2021 ambulatory Oumou Corinna Other [employer] Other Start: 10-25-2021 Office outpatient ne w 45 minutes Oumou Weinstein [facility] Nephrology Start: 10-18-2021 End: 10-19-[address] DERICK ISABEL . Facility:[facility] Start: 10-17-2021 Encounter for other specified special examinations DR DOCTOR MILES [facility] Start: 10-17-2021 Encounter for preprocedural laboratory examination DR DOCTOR MILES [facility] Start: 10-16-2021 End: 10-17-[address] DERICK ISABEL . Facility:[facility] Start: 10-16-2021 End: 10-17-2021 Encounter for other specified special examinations DR DOCTOR MILES Facility:[facility] Start: 10-13-2021 End: 10-21-2021 ambulatory PHYSICIAN BRADFORD Facility:[facility] Start: 10-10-2021 End: 10-11-[address] DERICK ISABEL . Facility:[facility] Start: 10-06-2021 End: 10-07-[address] DOCTOR MIELS Facility:[facility] Start: 09-25-2021 End: 09-26-[address] DERICK ISABEL . Facility:[facility] Start: 09-05-2021 End: 09-06-[address] DOCTOR MILES Facility:[facility] Start: 08-25-2021 End: 08-26-[address] DERICK ISABEL . Facility:[facility] Start: 08-18-2021 End: 08-18-2021 ambulatory LEISA PERRY Facility:[facility] Start: 08-09-2021 End: 08-09-[address] DERICK ISABEL . Facility:[facility] Start: 08-08-2021 End: 08-09-[address] DOCTOR MILES Facility:[facility] Start: 07-16-2021 End: 07-18-2021 Evaluation and management of inpatient LEISA JYOTIDK [facility] Start: 05-24-2021 End: 05-26-2021 ambulatory OCTAVIO MCCLELLAN [facility] Start: 05-24-2021 End: 05-26-2021 Subsequent hospital visit by physician Octavio Mcclellan DO Work Phone: [facility] Ortho/Med Surg Comment on above: S/P laparoscopic sle may gastrectomy (Primary Dx) Start: 05-08-2021 End: 05-08-2021 Subsequent hospital visit by physician Twyla Mccracken Rm 2 [facility] Pre-Admit Testing Comment on above: Canceled (Other) Start: 05-08-2021 End: 05-11-[address] [facility] Start: 05-08-2021 End: 05-13-[address] [facility] Start: 05-08-2021 End: 05-10-2021 Patient encounter status Stv Xr [facility] Radiology Start: 05-08-2021 End: 05-10-2021 Subsequent hospital visit by physician Glory Mccracken Xr [facility] Radiology Comment on above: Pre-op chest exam Start: 05-08-2021 End: 05-12-2021 Subsequent hospital visit by physician Twyla Mccracken Rm 2 [facility] Pre-Admit Testing Start: 05-05-2020 End: 05-05-2020 Patient encounter procedure Derick Isabel -Pre-Surgical Testing Start: 02-04-2020 End: 02-04-2020 Subsequent hospital visit by physician Suzanne Pruett Work Phone: [facility] Echocardiography Comment on above: Arrived Start: 01-08-2020 End: 01-08-2020 Subsequent hospital visit by physician Alexandro Muhammad Work Phone: [facility] Radiology Start: 01-08-2020 End: 01-08-2020 Office outpatient new 30 minutes Alexandro Muhammad Work Phone: [facility] Orthopedics Comment on above: Fluid retention in l egs (Primary Dx) Start: 06-10-2019 End: 06-11-2019 Patient encounter procedure [facility] Facility:[facility] Start: 04-16-2019 End: 04-19-2019 Patient encounter procedure ALINE Leyva DAVY [facility] Start: 04-16-2019 End: 04-18-2019 Subsequent hospital visit by physician Nelson Xr Room 4 On license of [facility] Comment on above: Injury Start: 04-11-2019 End: 04-11-2019 Emergency department patient visit SUZANNE DAVIES [facility] Start: 04-11-2019 End: 04-11-2019 Emergency department patient visit Suzanne Davies Work Phone: [facility] ED Comment on above: Acute bilateral low back pain with right-sided sciatica (Primary Dx); Traumatic buttock pain Procedures Date Procedure Procedure Detail Performing Clinician Start: 11-21-2022 Antibody screen DERICK ISABEL Comment on above: Order Comment: Speci men Type: BLOOD SPECIMENOrdering Facility: [facility] Address: [address] [address] Performed By: #### T [id number] ####CC MAIN BLOOD BANKCLIA [id number] [facility] [id number] [place] Start: 08-15-2022 Follow-up visit Follow-up JASON KISER Start: 02-25-2022 Arthroplasty of knee Scarlet MURILLO Start: 02-25-2022 Lumbar spinal fusion Scarlet MURILLO Start: 01-24-[address] SHERRI MURILLO . Comment on above: Performed By: #### P TT #### [facility] [address] [place] [address] Dr. Hugh Landis Start: 07-13-2021 Cystoscopic removal of ureteric stent Cecelia MURILLO Start: 07-13-2021 Extracorporeal shock wave lithotripsy of calculus of kidney Cecelia MURILLO Start: 06-29-2021 Cystoscopic insertio n of ureteric stent Cecelia MURILLO Start: 05-25-2021 HOME O2 EVAL (DESATU RATION SCREEN) Octavio Mcclellan DO Work Phone: Start: 05-25-2021 Assay of magnesium Zoran Hernandes MD Work Phone: Start: 05-25-2021 SURGICAL PATHOLOGY REPORT Octavio Mcclellan DO Work Phone: Start: 05-25-2021 Basic metabolic pane l calcium total Octavio Mcclellan DO Work Phone: Start: 05-24-2021 Glucose blood reagent strip Octavio Mcclellan DO Work Phone: Start: 05-24-2021 Calcium ionized Sonya I Desiree DO Work Phone: Start: 05-24-2021 Ecg routine ecg w/le ast 12 lds w/i&r Sonya I Desiree DO Work Phone: Start: 05-24-2021 End: 05-24-2021 Basic metabolic panel calcium total Octavio Mcclellan DO Work Phone: Start: 05-24-2021 End: 05-24-2021 Laps gstrc rstrictiv px longitudinal gastrectomy Octavio Mcclellan DO Work Phone: Start: 05-24-2021 Gluc bld gluc mntr d ev cleared fda spec home use Octavio Mcclellan DO Work Phone: Start: 05-24-2021 Potassium [Moles/vol ume] in Serum or Plasma Octavio Mcclellan DO Work Phone: Start: 05-24-2021 COVID-19, RAPID Octavio Mcclellan DO Work Phone: Start: 05-08-2021 Radiologic exam ches t 2 views Octavio Mcclellan DO Work Phone: Start: 05-08-2021 Assay of nicotine Ever Mcclellan DO Work Phone: Start: 05-08-2021 Basic metabolic pane l calcium total Octavio Mcclellan DO Work Phone: Start: 05-08-2021 Ecg routine ecg w/le ast 12 lds trcg only w/o i&r Octavio Mcclellan DO Work Phone: Start: 04-25-2021 Gastric sleeve Cj SQUIRES Start: 04-25-2021 Procedure on stomach Pa trick MURILLO Start: 03-28-2020 Cystoscopy Cecelia PICKETT Start: 02-24-2020 Extracorporeal shock wave lithotripsy of ureter Cecelia MURILLO Start: 04-16-2019 Radex spine lumbosac ral 2/3 views SUZANNE DAVIES Start: 04-16-2019 Radex spine lumbosac ral 2/3 views Aline Bhatti Work Phone: Start: 04-11-2019 Ct lumbar spine w/o contrast material SUZANNE DAVIES Start: 04-11-2019 Radiologic examinati on pelvis 1/2 views SUZANNE DAVIES Start: 04-11-2019 Ct lumbar spine w/o contrast material Cecilia Guajardo Huberpolo Work Phone: Start: 04-11-2019 Radiologic examinati on pelvis 1/2 views Cecilia Bennett Ngopolo Work Phone: Start: 12-18-2017 Colonoscopy Cj BETANCUR Start: 05-25-2016 cysto rt retrograde rt ureteroscopy rt holmium laser lithotripsy rt j stent with string Cecelia MURILLO Ankle joint operations Kaykayadalberto yoana MURILLO Bilateral replacemen t of knee joints Cecelia MURILLO Chondrectomy of semi lunar cartilage of knee Cj TAVIA Cystoscopy Cecelia MURILLO Lumbar spinal fusion Cecelia MURILLO Urine culture PHYSICIAN TOM BUSBY Plan of Treatment Date Care Activity Detail Author Start: 01-24-2027 Prostate Cancer Screening Discussion Prostate Cancer Screening Discussion [facility] Start: 01-24-2027 Prostate specific antigen measurement Prostate Cancer Screening Discussion [facility] Start: 02-15-2024 Adult BMI Screening Adult BMI Screening [facility] Start: 02-15-2024 Tobacco Screening Tobacco Screening [facility] Start: 12-12-2023 Creatinine measurement Serum Creatinine [facility] Start: 12-12-2023 Serum Creatinine Serum Creatinine [facility] Start: 10-27-2023 Influenza vaccination Influenza Vaccine (#1) [facility] Start: 10-07-2023 End: 10-07-2023 Follow-up encounter Neurosurgery Comment on above: FOLLOW UP Start: 2023 RSV Vaccine (1 - 1-dose 60+ series) RSV Vaccine (1 - 1-dose 60+ series) [facility] Start: 08-15-2023 End: 08-15-2023 Patient encounter procedure 08/15/2023 11:15 AM EDT Office Visit [facility] [address] [place] [id number] Ahsan Flynn PA [address] [place] [address] [facility] Start: 05-22-2023 Hemoglobin A1c measurement HbA1C [facility] Start: 05-22-2023 Hemoglobin A1c/Hemoglobin.total in Blood HbA1C [facility] Start: 02-25-2023 Behavioral Health Screening Behavioral Health Screening [facility] Start: 02-25-2023 Depression Assessment Depression Assessment [facility] Start: 01-20-2023 End: 01-19-2024 Radex spine lumbosacral 2/3 views XR LUMBAR LIMITED 2V AP/LAT Radiology Routine Lumbar adjacent segment disease with spondylolisthesis Expected: 01/20/2023, Expires: 01/19/2024 [facility] Work Phone: Comment on above: Expected: 01/20/2023, Expires: Start: 10-26-2022 Covid-19 Vaccine ( season) Covid-19 Vaccine ( season) [facility] Start: 10-26-2022 Influenza vaccination [facility] Start: 05-25-2022 Creatinine measurement Creatinine monitoring [facility] Start: 05-25-2022 Potassium monitoring Potassium monitoring [facility] Start: 05-08-2022 Creatinine measurement Creatinine monitoring [facility] Start: 05-08-2022 Potassium monitoring Potassium monitoring [facility] Start: 02-25-2022 DEPRESSION ASSESSMENT DEPRESSION ASSESSMENT [facility] Start: 01-03-2022 Hemoglobin A1c measurement A1C test (Diabetic or Prediabetic) [facility] Start: 01-03-2022 Lipid panel Lipid screen [facility] Start: 10-26-2021 Influenza vaccination Flu vaccine (Season Ended) Heydi celestin Start: 06-06-2021 End: 06-06-2021 Patient encounter procedure 06/06/2021 Office Visit Oncology Spencer Guy MD [address] [place] [address] [facility] Start: 06-02-2021 End: 06-02-2021 Patient encounter procedure 06/02/2021 Office Visit Bariatrics Octavio Mcclellan DO [address] [place] [address] [facility] Invasive Bariatric Surg Start: 05-24-2021 End: 05-24-2021 Admission to same day surgery center [facility] Comment on above: XI ROBOTIC LAPOROSCOPIC GASTRECTOMY SLEE VE, LIVER BIOPSY, EGD- GI SCHEDULED XI ROBOTIC LAPOROSCO PIC GASTRECTOMY SLEEVE, LIVER BIOPSY, EGD- GI SCHEDULED, POSSIBLE OPEN Start: 05-24-2021 End: 05-24-2021 Laps gstrc rstrictiv px longitudinal gastrectomy [facility] Start: 05-24-2021 Subsequent hospital visit by physician 05/24/2021 Hospital Encounter IP Unit Octavio Mcclellan DO [address] [address] [facility] Start: 05-19-2021 End: 05-19-2021 Patient encounter procedure 05/19/2021 Appointment Pre-Admission Testing [facility] PRE ADMIT Start: 05-18-2021 End: 05-18-2021 Patient encounter procedure 05/18/2021 Office Visit Bariatrics Octavio Mcclellan DO [address] [place], [place] [id number] [facility] In[facility] Bariatric Surg Start: 10-26-2020 Influenza vaccination Flu vaccine (#1) [facility] Start: 04-04-2020 End: 04-04-2020 Office Visit 04/04/2020 Office Visit Cardiovascular Medicine Suzanne Pruett MD [address] [place] [address] [phone] [facility] Start: 02-02-2020 End: 02-02-2020 Office Visit 02/02/2020 Office Visit Cardiovascular Medicine Suzanne Pruett MD [address] [place] [address] [phone] [facility] Start: 10-27-2019 Influenza vaccination INFLUENZA VACCINE (#1) [facility] stem Start: 10-26-2018 Influenza vaccination Flu vaccine (#1) [facility] [employer] Phone: Start: 09-10-2018 PROSTATE CANCER SCREENING DISCUSSION PROSTATE CANCER SCREENING DISCUSSION [facility] Start: 09-10-2013 Administration of varicella zoster vaccine Zoster (Shingles) Vaccine (1 of 2) [facility] Start: 09-10-2013 Colon cancer screen colonoscopy Colon cancer screen colonoscopy [facility] [employer] Phone: Start: 09-10-2013 Colonoscopy COLORECTAL CANCER SCREENING DISCUSSION [facility] Start: 09-10-2013 Prostate specific antigen measurement PROSTATE CANCER SCREENING DISCUSSION [facility] Start: 09-10-2013 Shingles Vaccine (1 of 2) Shingles Vaccine (1 of 2) [facility] Start: 09-10-2013 SHINGRIX VACCINE (1 of 2) SHINGRIX VACCINE (1 of 2) [facility] Start: 09-10-2013 Zoster vaccine hzv live for subcutaneous use ZOSTER (SHINGLES) VACCINE (1 of 2) [facility] Start: 09-10-2008 COLOGUARD (FIT-DNA) COLOGUARD (FIT-DNA) [facility] Start: 09-10-2008 Colonoscopy COLONOSCOPY [facility] Start: 09-10-2008 COLORECTAL CANCER SCREENING COLORECTAL CANCER SCREENING [facility] Start: 09-10-[address] COLONOGRAPHY [facility] Start: 09-10-2008 DIABETES SCREEN DIABETES SCREEN [facility] Start: 09-10-2008 Diabetes Screening Diabetes Screening [facility] Start: 09-10-2008 FECAL OCCULT BLOOD FECAL OCCULT BLOOD [facility] Start: 09-10-2008 Screening for malignant neoplasm of colon [facility] Start: 09-10-2008 SIGMOIDOSCOPY SIGMOIDOSCOPY [facility] Start: 2003 Diabetes screen Diabetes screen [facility] [employer] Phone: Start: 2003 Fasting lipid profile LIPID SCREENING [facility] [employer] [facility] Start: 2003 Lipid screen Lipid screen [facility] Phone: Start: 09-10-1998 Lipid 1996 panel - Serum or Plasma Lipid Screening [facility] Start: 09-10-1998 LIPID SCREEN LIPID SCREEN [facility] Start: 09-10-1982 DTaP,Tdap and Td Vaccines (1 - Tdap) DTaP,Tdap and Td Vaccines (1 - Tdap) [facility] Start: 09-10-1982 DTaP/Tdap/Td vaccine (1 - Tdap) DTaP/Tdap/Td vaccine (1 - Tdap) [facility] Start: 09-10-1982 Hepatitis B vaccine (1 of 3 - Risk 3-dose series) Hepatitis B vaccine (1 of 3 - Risk 3-dose series) [facility] Start: 09-10-1982 Third diphtheria, tetanus and acellular pertussis (DTaP) vaccination TDAP (ADULT) [facility] Start: 09-10-1982 Urine microalbumin profile [facility] Start: 09-10-1981 Adult BMI Follow Up Plan Adult BMI Follow Up Plan [facility] Start: 09-10-1981 Annual PCP Team Chronic Disease Visit Annual PCP Team Chronic Disease Visit [facility] Start: 09-10-1981 BP Controlled (<130/80) BP Controlled (<130/80) [facility] in Start: 09-10-1981 Depression Screening Depression Screening [facility] Start: 09-10-1981 Diabetic retinal exam Diabetic retinal exam [facility] Start: 09-10-1981 Hepatitis B surface antibody level LDL Cholesterol [facility] Start: 09-10-1981 HEPATITIS C SCREENING HEPATITIS C SCREENING [facility] Start: 09-10-1981 Hepatitis C screening Hepatitis C Screening [facility] Start: 09-10-1981 HIV SCREENING HIV SCREENING [facility] Start: 09-10-1981 HIV screening HIV Screening [facility] Start: 09-10-1981 Tetanus vaccination TETANUS [facility] Start: 09-10-1981 Urine screening for protein Diabetic microalbuminuria test [facility] Start: 09-10-1978 HIV screen HIV screen [facility] Phone: Start: 09-10-1978 HIV screening HIV screen [facility] Start: 09-10-1976 HIV screening HIV SCREENING DISCUSSION [facility] [employer] stem Start: 1975 Depression Screen Depression Screen [facility] Start: 1975 Depression Screening Depression Screening [facility] Start: 09-10-1974 DTaP/Tdap/Td vaccine (1 - Tdap) DTaP/Tdap/Td vaccine (1 - Tdap) [facility] Phone: Start: 09-10-1973 3 comp foot exam completed Diabetic Foot Exam [facility] Start: 09-10-1973 Diabetic foot examination Diabetic foot exam [facility] Start: 09-10-1973 Glaucoma screening Dilated Retinal Exam [facility] Start: 09-10-1973 Hepatitis B screening Urine Albumin:Creatinine Ratio [facility] Start: 09-10-1973 Hepatitis C antibody, confirmatory test Dilated Retinal Exam [facility] Start: 09-10-1969 Pneumococcal 0-64 years Vaccine (1 of 2 - PPSV23) Pneumococcal 0-64 years Vaccine (1 of 2 - PPSV23) [facility] Start: 09-10-1969 Pneumococcal vaccination [facility] Start: 09-10-1968 COVID-19 Vaccine (1) COVID-19 Vaccine (1) [facility] Start: 03-13-1964 COVID-19 VACCINE (#1) COVID-19 VACCINE (#1) [facility] Start: 1963 Hepatitis C antibody, confirmatory test HEPATITIS C VIRUS SCREENING [facility] Start: 1963 Hepatitis C screen Hepatitis C screen [facility] Phone: Start: 1963 Hepatitis C screening Hepatitis C screen [facility] Start: 1963 Potassium [Moles/Vol] POTASSIUM [facility] Bacteria identified in Urine by Culture [facility] Chlamydia trachomati s DNA [Presence] in Unspecified specimen by MUKUL with probe detection [facility] Work Phone: Continuous pulse oximetry Pulse oximetry, continuous Respiratory Care Routine Every 4hr until discontinued starting 05/24/2021 [facility] Phone: Comment on above: Every 4hr until discontinued starting CT LUMBAR SPINE WO CONTRAST CT LUMBAR SPINE WO CONTRAST Imaging STAT 04/11/2019 1:43 PM EST [employer] Work Phone: Neisseria gonorrhoea e DNA [Presence] in Unspecified specimen by MUKUL with probe detection [facility] Work Phone: Oxygen therapy [[facility] Data Set] Initiate Oxygen Therapy Protocol Respiratory Care Routine As Needed until discontinued starting 05/24/2021 [employer] Work Phone: Comment on above: As Needed until discontinued starting Radiography for bone length studies XR BONE LENGTH STUDY Imaging Routine Hx of total knee arthroplasty, right 01/08/2020 1:37 PM [employer] Renal function 2000 panel - Serum or Plasma [facility] Spirometry panel Incentive silverio metry Respiratory Care Routine Every 2hr while awake until discontinued starting 05/24/2021 [employer] Work Phone: Comment on above: Every 2hr while awake until discontinued starting 05/24/2021 Surgical Pathology Surgical Path ology Lab Routine Release Upon Ordering for 1 Occurrences starting 05/24/2021 [employer] Phone: Comment on above: Release Upon Ordering for 1 Occurrences starting 05/24/2021 Trichomonas vaginali s DNA [Presence] in Unspecified specimen by MUKUL with probe detection [facility] Work Phone: X-ray of right knee XR KNEE RIGH T 3 VIEWS Imaging Routine Hx of total knee arthroplasty, right 01/08/2020 1:37 PM [employer] End: 06-06-2024 XR Lumbar spine AP and Lateral XR LUMBAR LIMITED 2V AP/LAT Radiology Routine Radiculopathy, lumbar region 1 Occurrences starting 05/08/2023 until 06/06/2024 [facility] Work Phone: Comment on above: 1 Occurrences starting 05/08/2023 until 06/06/2024 [facility] Immunizations Immunization Date Immunization Notes Care Provider Jazimn mariscal 05-08-2023 influenza virus vacc ine, unspecified formulation Edd Mathew MD Work Phone: [facility] Payers Date Payer Category Payer Self-pay [id number] 2019 Private Health Insurance xxx [id number] [id number] 2019 Worker's Compensation [address] [facility] FUNDED xxxxxxxx 2019-Present [phone] [facility] [employer] [address] [place] [address] xxxxxxxx [id number]. 2.7.3.085766.315 2019 Unknown [id number] 2019 Unknown [id number] [facility] xxxxx 2019-Present [phone] [facility] [employer] [address] [place] [address] xxxxx 1.2.840.678135.1.13.239. 2.7.3.309749.315 2019 Unknown [id number]. 1.13.159. 2.7.3.208460.315 2019 Unknown [id number] 2014 Private Health Insurance [id number] 2014 Private Health Insurance [employer] xxxxxxxxxx 2014-Present [phone] [address] [place] [address] xxxxxxxxxx 1.2.840.991405.1.13.239. 2.7.3.342333.315 2013 Private Health Insurance 1965 Unknown [id number] 2.16.840.1.148878.3.579. 2.176 1963 Unknown [id number] 2.16.840.1.021320.3.579. 2.176 1963 Unknown [id number] 2.16.840.1.208771.3.579. 2.176 1963 Unknown [id number] 2.16.840.1.293968.3.579. 2.196 1963 Unknown [id number] 2.16.840.1.365425.3.579. 2.175 1963 Unknown [id number] 2.16.840.1.603885.3.579. 2.647 1963 Unknown [id number] 2.16.840.1.567204.3.579. 2.593 1963 Unknown [id number] 2.16.840.1.965809.3.579. 2.593 1963 Unknown [id number] 2.840.1.546151.3.579. 2.593 1963 Unknown [id number] 2.16.840.1.675940.3.579. 2.593 1963 Unknown [id number] 2.16840.1.909836.3.579. 2.593 1963 Unknown [id number] 2.16840.1.817976.3.579. 2.593 1963 Unknown [id number] 2.840.1.358735.3.579. 2.593 1963 Unknown [id number] 2.16.840.1.758176.3.579. 2.593 1963 Unknown [id number] 2.16840.1.158162.3.579. 2.593 1963 Unknown [id number] 2.16.840.1.119398.3.579. 2.593 1963 Unknown [id number] 2.16840.1.298462.3.579. 2.593 1963 Unknown [id number] 2.16.840.1.991821.3.579. 259 1963 Unknown [id number] 2.16.840.1.901527.3.579. 259 1963 Unknown [id number] 2.16.840.1.941080.3.579. 259 1963 Unknown [id number] 2.840.1.069922.3.579. 259 1963 Unknown [id number] 2..840.1.956912.3.579. 259 1963 Unknown [id number] 2.840.1.705728.3.579. 259 1963 Unknown [id number] .840.1.631896.3.579. 259 1963 Unknown [id number] .840.1.652409.3.579. 259 1963 Unknown [id number] .840.1.375746.3.579. 259 1963 Unknown [id number] .840.1.607653.3.579. 259 1963 Unknown [id number] 2..840.1.733341.3.579. 259 1963 Unknown [id number] .840.1.256297.3.579. 259 1963 Unknown [id number] .840.1.181995.3.579. 272 1963 Unknown [id number] .840.1.655604.3.579. 272 1963 Unknown [id number] 2.16840.1.769767.3.579. 272 1963 Unknown [id number] 2.840.1.135723.3.579. 272 1963 Unknown [id number] 2.16.840.1.400807.3.579. 2.727 1963 Unknown [id number] 2.16.840.1.746254.3.579. 2.727 1963 Unknown [id number] 2.16.840.1.528405.3.579. 2.727 1963 Unknown [id number] 2.16.840.1.063026.3.579. 2.1286 1963 Unknown [id number] 2.16.840.1.732625.3.579. 2.1286 1959 Unknown [id number] 1.2.840.447696.1.13.239. 2.7.3.476474.315 1959 Unknown [id number] Self-pay Self Pay [facility]mt [id number] Unknown [id number] 2.16.840.1.825177.3.579. 2.531 Unknown [id number] 2.16.840.1.576798.3.579. 2.531 Unknown [id number] 2.16.840.1.207662.19 Social History Date Type Detail Facility Start: 04-11-2019 End: 11-07-2023 Tobacco smoking status DEIS Never smoker [facility] Start: 04-11-2019 End: 05-25-2021 Alcohol intake Lifetime non-drinker (finding) [employer] Phone: Start: 04-11-2019 End: 01-08-2020 History SDOH Alcohol Frequency 1 [employer] Phone: Start: 1965 Sex Assigned At Not on file M [employer] Phone: Start: 11-26-2013 End: 01-08-2020 Tobacco use and exposure Never used [facility] Start: 1965 Sex Assigned At Male [facility] Start: 04-08-2021 End: 05-24-2021 Exposure to SARS-CoV-2 (event) Not sure [employer] Phone: Start: 11-05-2022 End: 03-25-2023 Sex Assigned At [facility] Start: 01-26-2014 End: 03-25-2023 Alcohol intake Current non-drinker of alcohol (finding) [facility] Tobacco smoking status Never [facility] Start: 11-05-2022 End: 03-25-2023 History of Social function [facility] Start: 02-14-2023 Alcohol intake Ex-drinker (finding) [employer] Medical Equipment Procedure Code Equipment Code Equipment Origin al Text Equipment Identifier Dates CYSTOSCOPY W/ HO MIUM LASER JOSE G JACOBS, Octavio Myers 03/28/20 Unknown Abdomen [id number] [id number] FDA Start: 03-28-2020 Screw Darby 3 Alicia nium Set Merlyn Spine - [id number] Start: 12-07-2022 Screw Darby 3 Serr eladio 6.5mm 50mm Bone Polyaxial Nonsterile Spine - [id number] Start: 12-07-2022 Vitoss Ba2x Bioactive Bone Graft Substitute 5.0cub Cm [id number] Start: 12-07-2022 Cage Tritanium 6 d [id number] Spinal Sterile Latex Free Lumbar Posterior - [id number] Start: 12-07-2022 Cage Tritanium 6 d [id number] Spinal Sterile Latex Free Lumbar Posterior - [id number] Start: 12-07-2022 Screw Darby 3 Serr eladio 6.5mm 45mm Bone Polyaxial Nonsterile Spine - [id number] Start: 12-07-2022 Goals Date Patient Goal Desired Activity /State Functional Status Date Assessment Result Facility 02-04-2023 Functional Status N/A [facility] 10-17-2022 Functional Status N/A General Anaya [facility] 03-19-2022 Functional Status N/A [facility] Clinical Notes 05-03-2021 to 10-04-2023 Telephone Encounter - Arianna Little - 10/04/2023 10:41 AM EDTTelephone Encounter - Arianna Little - 10/04/2023 10:41 AM EDTTelephone Encounter - Emily Rondon - 07/30/2023 1:06 PM EDT Note Date & Type Note Facility 10-04-2023 Telephone encounter Note Laura report XR Lumbar Spine 2-3v scanned to [facility] 10-04-2023 Miscellaneous Notes Laura report XR Lumbar Spine 2-3v scanned to [facility] documented in this encounter [facility] 07-30-2023 Telephone encounter Note Called Sukhdeep, no answer, left VM [facility] Work Phone: 07-30-2023 Miscellaneous Notes Called Sukhdeep, no answer, left VM Have sent XR Lumbar order to [place] fax # [phone] as requested from patient. Pt phoned regarding upcoming visit 10/06 workman's comp appt. Pt unable to manage virtual visit asking for telephone visit. Pt asking how far in advance to do X-Ray. Pt will have X-Ray done locally at [place]. Please call and advise Pt phone # [phone] documented in this encounter [facility] 07-30-2023 Telephone encounter Note Have sent XR Lumbar order to [place] fax # [phone] as requested from patient. [facility] 07-30-2023 Telephone encounter Note Pt phoned regarding upcoming visit 10/06 [place] comp appt. Pt unable to manage virtual visit asking for telephone visit. Pt asking how far in advance to do X-Ray. Pt will have X-Ray done locally at [place]. Please call and advise Pt phone # [phone] [facility] 07-26-2023 Telephone encounter Note Office note faxed. Faxed verification received. [facility] 07-26-2023 Miscellaneous Notes Office note faxed. Faxed verification received. Printed for review. Received request from [employer] needing more info, in [employer] for review. documented in this encounter [facility] 07-23-2023 Telephone encounter Note Printed for review. [facility] 07-23-2023 Telephone encounter Note Received request from [employer] needing more info, in [employer] for review. [facility] 05-08-2023 History of Presen t illness Narrative SPINE SURGERY FOLLOW UP This is a virtual visit using Audio Only Visit. It required patient-provider interaction for the medical decision making as documented below. I have communicated my name and active licensure. The patient's identity and physical location were verified at the time of this visit. Either the patient or their legal apprenticeship representative has been informed of the risks and benefits of -- and alternatives to -- treatment through a remote evaluation and consents to proceed with the evaluation remotely. SERVICE DATE: 05/08/2023 SURGERY DATE: 12/07/2022 L2-S1 revision instrumented fusion; L2/3, L3/4 TLIF Sukhdeep Simental is seen for 5 month post operative follow up. Continues to complain of back pain and thigh tenderness and difficulty ambulation. Some pain below knee. Reports improvement similar to last time. No significant change since last time. Pain continues to be severe. ANTIPLATELET OR ANTICOAGULATION STATUS: No Patient Entered Questionnaires PROMIS Score Percentiles Percentiles provide an indication of how the patient's score ranks in relation to the general population. Higher percentile rankings indicate better function/quality of life. 50th percentile is the average of the general population and indicates half of respondents had a worse score. Depression Screening: PHQ-9 Self-Harm (Item 9) response options: 0 Not at all 1 Several days 2 More than half the days 3 Nearly every day PHQ-9 Levels: 0-4 No to mild depression 5-9 Mild depression 10-14 Moderate depression 15-19 Moderately severe depression 20-27 Severe depression PHYSICAL EXAM: There were no vitals taken for this visit. Limited due to virtual visit DATA REVIEW CT scan showing possible pedicle fratcure L2 was not reported on the radiology report A/p Early kyphosis and L2 fracture appears to be healing l2-3 monitor at moment with repeat xray 2 months and virtual visit ASSESSMENT/PLAN (M54.16) Radiculopathy, 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primary encounter diagnosis) Sukhdeep Simental will continue with medical management of his/her condition. There appears to be L2 fracture at the bilateral pedicle which might explain some of the patient's symptoms. It is unclear if that area is healing versus developing early PJK. We will continue to monitor at moment with repeat X-ray in 2 months and virtual visit. There is a consideration of extension of fusion to L1. Imaging: Lumbar X-Ray Follow up: Two months (virtual visit) Imaging Ordered: Lumbar X-Ray I spent 15 minutes discussing with the patient his/her symptoms and future plans I have communicated my name and active licensure. The patient's identity and physical location were verified at the time of this visit. Either the patient or their legal apprenticeship representative has been informed of the risks and benefits of -- and alternatives to -- treatment through a remote evaluation and consents to proceed with the evaluation remotely. The documentation for this note was completed by Hannah Ochoa, AA Student acting as scribe for Edd Mathew MD. May 08, 2023 4:33 PM. SIGNATURE: Edd Mathew MD PATIENT NAME: Sukhdeep Simental DATE: May 08, 2023 TIME: 4:00 PM PAGER: documented in this encounter [facility] 05-08-2023 Note HNO ID: [id number] Author: EDD MATHEW MD Service: ? Author Type: Physician Type: Progress Notes Filed: 05/13/2023 07:52 Note Text: SPINE SURGERY FOLLOW UP This is a virtual visit using Audio Only Visit. It required patient-provider interaction for the medical decision making as documented below. I have communicated my name and active licensure. The patient's identity and physical location were verified at the time of this visit. Either the patient or their legal apprenticeship representative has been informed of the risks and benefits of -- and alternatives to -- treatment through a remote evaluation and consents to proceed with the evaluation remotely. SERVICE DATE: 05/08/2023 SURGERY DATE: 12/07/2022 L2-S1 revision instrumented fusion; L2/3, L3/4 TLIF Sukhdeep Simental is seen for 5 month post operative follow up. Continues to complain of back pain and thigh tenderness and difficulty ambulation. Some pain below knee. Reports improvement similar to last time. No significant change since last time. Pain continues to be severe. ANTIPLATELET OR ANTICOAGULATION STATUS: No Patient Entered Questionnaires PROMIS Score Percentiles Percentiles provide an indication of how the patient's score ranks in relation to the general population. Higher percentile rankings indicate better function/quality of life. 50th percentile is the average of the general population and indicates half of respondents had a worse score. Depression Screening: PHQ-9 Self-Harm (Item 9) response options: 0 Not at all 1 Several days 2 More than half the days 3 Nearly every day PHQ-9 Levels: 0-4 No to mild depression 5-9 Mild depression 10-14 Moderate depression 15-19 Moderately severe depression 20-27 Severe depression PHYSICAL EXAM: There were no vitals taken for this visit. Limited due to virtual visit DATA REVIEW CT scan showing possible pedicle fratcure L2 was not reported on the radiology report A/p Early kyphosis and L2 fracture appears to be healing l2-3 monitor at moment with repeat xray 2 months and virtual visit ASSESSMENT/PLAN (M54.16) Radiculopathy, 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primary encounter diagnosis) Sukhdeep Simental will continue with medical management of his/her condition. There appears to be L2 fracture at the bilateral pedicle which might explain some of the patient's symptoms. It is unclear if that area is healing versus developing early PJK. We will continue to monitor at moment with repeat X-ray in 2 months and virtual visit. There is a consideration of extension of fusion to L1. Imaging: Lumbar X-Ray Follow up: Two months (virtual visit) Imaging Ordered: Lumbar X-Ray I spent 15 minutes discussing with the patient his/her symptoms and future plans I have communicated my name and active licensure. The patient's identity and physical location were verified at the time of this visit. Either the patient or their legal apprenticeship representative has been informed of the risks and benefits of -- and alternatives to -- treatment through a remote evaluation and consents to proceed with the evaluation remotely. The documentation for this note was completed by Hannah Ochoa, JOSÉ MIGUEL Student acting as scribe for Edd Mathew MD. May 08, 2023 4:33 PM. SIGNATURE: Edd Mathew MD PATIENT NAME: Sukhdeep Simental DATE: May 08, 2023 TIME: 4:00 PM PAGER: [facility] 05-08-2023 Miscellaneous Notes A letter was received from the law office of Barbara Loredo. 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 The information was reviewed by Nadiya Flynn PA-C and he would not like to amend the [facility] claim to allow the above mentioned condition. Call placed to the office of Barbara Loredo to inform him of provider's decision. No answer at the time call was made. Message left. documented in this encounter [facility] 05-08-2023 Telephone encounter Note A letter was received from the law office of Barbara Loredo. 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 The information was reviewed by Nadiya Flynn PA-C and he would not like to amend the [facility] claim to allow the above mentioned condition. Call placed to the office of Barbara Loredo to inform him of provider's decision. No answer at the time call was made. Message left. [facility] Call received from Hannah, patient's case assistant. She called as patient's MEDCO-14 is expiring soon. Hannah is informed that patient called about this and an updated MEDCO-14 was completed and faxed on 05/03/2023. Hannah states she is his case assistant and would like information sent to her at - done. She asked what the form states. She is informed that there are no changes . She asks if patient is able to return to work. She is informed again that MEDCO 14 indicates No Changes and office restrictions ordered by this office have not changed. Hannah is reminded that patient had surgery. Hannah informed that new dates for restrictions will be 05/15/2023-11/14/2023. documented in this encounter [facility] 05-07-2023 Telephone encounter Note Call received from Hannah, patient's case assistant. She called as patient's MEDCO-14 is expiring soon. Hannah is informed that patient called about this and an updated MEDCO-14 was completed and faxed on 05/03/2023. Hannah states she is his case assistant and would like information sent to her at - [facility]. She asked what the form states. She is informed that there are no changes . She asks if patient is able to return to work. She is informed again that MEDCO 14 indicates No Changes and office restrictions ordered by this office have not changed. Hannah is reminded that patient had surgery. Hannah informed that new dates for restrictions will be 05/15/2023-11/14/2023. [facility] 04-18-2023 Miscellaneous Notes Signed form faxed to number requested. Faxed verification received. Printed for review and signature. Received PT Certification from [facility]. Scanned to chart for provider signature. documented in this encounter [facility] 04-16-2023 Miscellaneous Notes Received imaging disc by mail from [facility]. Disc contains CT Lumbar spine done on 04/03/23. Will place in nurse folder in [address]. documented in this encounter [facility] 04-09-2023 Miscellaneous Notes Called & spoke with Sukhdeep Asked him to obtain imaging disc & send to our office. Will require images to be uploaded to assess for bony fusion at previous surgical site and adjacent segment disease. Received CT Lumbar Spine Report from [facility], in epic to review. documented in this encounter [facility] 03-25-2023 Note HNO ID: [id number] Author: EDD MATHEW MD Service: ? Author Type: Physician Type: Progress Notes Filed: 03/26/2023 06:46 Note Text: SPINE SURGERY FOLLOW UP This is an in-person visit. SERVICE DATE: 03/25/2023 SURGERY DATE: 12/07/2022 L2-S1 revision instrumented fusion; L2/3, L3/4 TLIF Sukhdeep Simental is seen for 3 month post operative follow up. He continues to experience low back pain into the buttock. Radiation of pain down leg has resolved during the day but returns at night. Reports difficulty sleeping due to pain despite taking muscle relaxants (Zanaflex) and sleep aides. Has discomfort with both standing and sitting, states PT was suspended due to lack of efficacy. Ambulates with a walker due to weakness and imbalance. States skin on thigh has been sensitive to touch, did not occur prior to surgery. Does not note significant worsening or improvement since surgery. PAIN EVALUATION 03/25/2023 1411 Pain Level: 8 Pain Location: Back-Lower Description: Sharp Frequency: Continuous Pain Radiation: Low back into buttock and leg Aggravating Factors: Standing, Sitting ANTIPLATELET OR ANTICOAGULATION STATUS: No Patient Entered Questionnaires PROMIS Score Percentiles Percentiles provide an indication of how the patient's score ranks in relation to the general population. Higher percentile rankings indicate better function/quality of life. 50th percentile is the average of the general population and indicates half of respondents had a worse score. Depression Screening: PHQ-9 Self-Harm (Item 9) response options: 0 Not at all 1 Several days 2 More than half the days 3 Nearly every day PHQ-9 Levels: 0-4 No to mild depression 5-9 Mild depression 10-14 Moderate depression 15-19 Moderately severe depression 20-27 Severe depression PHYSICAL EXAM: BP 153/94 Pulse 96 SpO2 98% Oriented x3 PERRL FS Motor: UE D 5/5, B 5/5, T 5/5, G 5/5, HI 5/5 LE HF 5/5, KE 5/5, DF 5/5, PF 5/5, EHL 5/5 except R HF 2/5 Incision C/D/I DATA REVIEW No additional images reviewed today ASSESSMENT/PLAN (M51.36, M43.16) Lumbar adjacent segment disease with spondylolisthesis (primary encounter diagnosis) (M48.062) Spinal stenosis of lumbar region with neurogenic claudication Sukhdeep Simental has a condition that requires further workup. 1. Imaging: Lumbar X-Ray and Lumbar CT Without Contrast Symptoms of neuro deficit or red flag symptoms listed in HPI 2. Follow up: Following above Imaging Ordered: Lumbar X-Ray and Lumbar CT The documentation for this note was completed by Hannah Ochoa, AA Student acting as scribe for Edd Mathew MD. March 25, 2023 2:45 PM. SIGNATURE: Edd Mathew MD PATIENT NAME: Sukhdeep Simental DATE: March 25, 2023 TIME: 2:20 PM PAGER: [facility] 02-07-2023 Note HNO ID: [id number] Author: Christiano Griffiths RT(R) Service: ? Author Type: Technologist Type: Progress Notes Filed: 02/07/2023 3:42 PM Note Text: Radiology Service Progress Note PATIENT NAME: Sukhdeep Simental DATE OF SERVICE: February 07, 2023 TIME: 3:41 PM PATIENT IDENTITY VERIFICATION COMPLETED USING TWO (2) IDENTIFIERS: Name and Date of confirmed by patient verbally. FALL SCREENING: Has the patient had 2 falls in the last year or 1 fall with injury or currently using an Ambulatory Assistive Device (Walker, Cane, Wheelchair, Crutches, etc.)? Inpatient: Screened on floor PATIENT GENDER DATA: Male PATIENT RELEVANT IMPLANT DATA REVIEWED: Not Applicable RADIOLOGY DEPARTMENT: General X-ray: Exam(s) Completed: Spine X-Ray(s): Lumbar AP / LAT / L5-S1 PERIPHERAL IV DATA: Not applicable SIGNED BY: RT Norma(R) February 07, 2023 3:41 PM [facility] 02-07-2023 Miscellaneous Notes C9 for physical therapy faxed to [facility]. Faxed verification received. documented in this encounter [facility] 02-07-2023 Note HNO ID: [id number] Author: Riddhi Goss APRN.[employer] Service: ? Author Type: Nurse Practitioner Type: Progress Notes Filed: 02/08/2023 3:34 PM Note Text: SPINE SURGERY FOLLOW UP This is an in-person visit. SERVICE DATE: 02/07/2023 SURGERY DATE: 12/07/22 Sukhdeep Simental is seen for 6 week post operative follow up. He is s/p L2-S1 revision instrumented fusion, L2-3 3-4 TLIF. He states his low back pain is about the same since before surgery and his radicular pain is improved. He endorses right leg weakness since prior to surgery that has been unchanged. Since his procedure he endorses increased skin sensitivity and feeling of pins and needles in his feet and right calf. He endorses trouble sleeping. He continues to require using a Rolator for ambulation. Has tried gabapentin and lyrica in the past without relief. Denies bowel or bladder incontinence. PAIN EVALUATION 02/07/2023 1437 Pain Level: 4 Pain Location: Back-Lower Description: Aching;Shooting;Sharp Duration Units: Unknown Patient Entered Questionnaires PROMIS Score Percentiles Percentiles provide an indication of how the patient's score ranks in relation to the general population. Higher percentile rankings indicate better function/quality of life. 50th percentile is the average of the general population and indicates half of respondents had a worse score. Depression Screening: PHQ-9 Self-Harm (Item 9) response options: 0 Not at all 1 Several days 2 More than half the days 3 Nearly every day PHQ-9 Levels: 0-4 No to mild depression 5-9 Mild depression 10-14 Moderate depression 15-19 Moderately severe depression 20-27 Severe depression PHYSICAL EXAM: BP 157/80 Pulse 79 Temp 37 ?C (98.6 ?F) Wt 122.9 kg (271 lb) SpO2 98% BMI 40.02 kg/m? GENERAL APPEARANCE: Well nourished, well developed, and no apparent distress. NEURO PSYCH: Patient oriented to person, place, and time. Mood pleasant. Benign affect. MUSCULOSKELETAL VISUAL INSPECTION CERVICAL: WNL THORACIC: WNL LUMBAR: WNL MOTOR: 5/5 in all muscle groups. Except right HF 3/5 and KE 4/5 SENSORY: Normal sensory exam GAIT: Use rolator for support, +shopping cart LONG TRACT SIGNS: No clonus. No Hoffmans. WOUND ASSESSMENT: Well approximated incision, Non-reddened, well healing incision. DATA REVIEW [facility] records independently reviewed ASSESSMENT/PLAN (M51.36, M43.16) Lumbar adjacent segment disease with spondylolisthesis (primary encounter diagnosis) Sukhdeep Simental will continue with medical management of his condition. Ok to start aquatic therapy as incision is well healed, discussed starting PT, starting membrane stabilizer but he declined. Lumbar xray pending. 1. Consults: Physical Therapy 2. Follow up: Six weeks I spent a total of 17 minutes on the date of the service which included preparing to see the patient, [id number] patient care, completing clinical documentation, obtaining and/or reviewing separately obtained history, performing a medically appropriate examination, counseling and educating the patient/family/caregiver, and ordering medications, tests, or procedures. SIGNATURE: Riddhi Goss APRN.OLGA PATIENT NAME: Sukhdeep Simental DATE: February 07, 2023 TIME: 2:39 PM PAGER: [facility] 02-07-2023 History of Presen t illness Narrative SPINE SURGERY FOLLOW UP This is an in-person visit. SERVICE DATE: 02/07/2023 SURGERY DATE: 12/07/22 Sukhdeep Simental is seen for 6 week post operative follow up. He is s/p L2-S1 revision instrumented fusion, L2-3 3-4 TLIF. He states his low back pain is about the same since before surgery and his radicular pain is improved. He endorses right leg weakness since prior to surgery that has been unchanged. Since his procedure he endorses increased skin sensitivity and feeling of pins and needles in his feet and right calf. He endorses trouble sleeping. He continues to require using a Rolator for ambulation. Has tried gabapentin and lyrica in the past without relief. Denies bowel or bladder incontinence. PAIN EVALUATION 02/07/2023 1437 Pain Level: 4 Pain Location: Back-Lower Description: Aching;Shooting;Sharp Duration Units: Unknown Patient Entered Questionnaires PROMIS Score Percentiles Percentiles provide an indication of how the patient's score ranks in relation to the general population. Higher percentile rankings indicate better function/quality of life. 50th percentile is the average of the general population and indicates half of respondents had a worse score. Depression Screening: PHQ-9 Self-Harm (Item 9) response options: 0 Not at all 1 Several days 2 More than half the days 3 Nearly every day PHQ-9 Levels: 0-4 No to mild depression 5-9 Mild depression 10-14 Moderate depression 15-19 Moderately severe depression 20-27 Severe depression PHYSICAL EXAM: BP 157/80 Pulse 79 Temp 37 C (98.6 F) Wt 122.9 kg (271 lb) SpO2 98% BMI 40.02 kg/m GENERAL APPEARANCE: Well nourished, well developed, and no apparent distress. NEURO PSYCH: Patient oriented to person, place, and time. Mood pleasant. Benign affect. MUSCULOSKELETAL VISUAL INSPECTION CERVICAL: WNL THORACIC: WNL LUMBAR: WNL MOTOR: 5/5 in all muscle groups. Except right HF 3/5 and KE 4/5 SENSORY: Normal sensory exam GAIT: Use rolator for support, +shopping cart LONG TRACT SIGNS: No clonus. No Hoffmans. WOUND ASSESSMENT: Well approximated incision, Non-reddened, well healing incision. DATA REVIEW [facility] records independently reviewed ASSESSMENT/PLAN (M51.36, M43.16) Lumbar adjacent segment disease with spondylolisthesis (primary encounter diagnosis) Sukhdeep Simental will continue with medical management of his condition. Ok to start aquatic therapy as incision is well healed, discussed starting PT, starting membrane stabilizer but he declined. Lumbar xray pending. 1. Consults: Physical Therapy 2. Follow up: Six weeks I spent a total of 17 minutes on the date of the service which included preparing to see the patient, [id number] patient care, completing clinical documentation, obtaining and/or reviewing separately obtained history, performing a medically appropriate examination, counseling and educating the patient/family/caregiver, and ordering medications, tests, or procedures. SIGNATURE: Riddhi Goss APRN.CNP PATIENT NAME: Sukhdeep Simental DATE: February 07, 2023 TIME: 2:39 PM PAGER: documented in this encounter [facility] 02-04-2023 Hospital Discharg e instructions Patient Education 02/04/2023 10:26:49 Dietary Guidelines to Help Prevent Kidney Stones Dietary Guidelines to Help Prevent Kidney Stones Kidney stones are deposits of minerals and salts that form inside your kidneys. Your risk of developing kidney stones may be greater depending on your diet, your lifestyle, the medicines you take, and whether you have certain medical conditions. Most people can lower their risks of developing kidney stones by following these dietary guidelines. Your dietitian may give you more specific instructions depending on your overall health and the type of kidney stones you tend to develop. What are tips for following this plan? Reading food labels Choose foods with no salt added or low-salt labels. Limit your salt (sodium) intake to less than 1,500 mg a day. Choose foods with calcium for each meal and snack. Try to eat about 300 mg of calcium at each meal. Foods that contain 200 500 mg of calcium a serving include: ?8 oz (237 mL) of milk, ewtrnvu-mlqbwqplzyys-nuivn milk, and calcium-fortifiedfruit juice. Calcium-fortified means that calcium has been added to these drinks. ?8 oz (237 mL) of kefir, yogurt, and soy yogurt. ?4 oz (114 g) of tofu. ?1 oz (28 g) of cheese. ?1 cup (150 g) of dried figs. ?1 cup (91 g) of cooked broccoli. ?One 3 oz (85 g) can of sardines or mackerel. Most people need 1,000 1,500 mg of calcium a day. Talk to your dietitian about how much calcium is recommended for you. Shopping Buy plenty of fresh fruits and vegetables. Most people do not need to avoid fruits and vegetables, even if these foods contain nutrients that may contribute to kidney stones. When shopping for convenience foods, choose: ?Whole pieces of fruit. ?Pre-made salads with dressing on the side. ?Low-fat fruit and yogurt smoothies. Avoid buying frozen meals or prepared deli foods. These can be high in sodium. Look for foods with live cultures, such as yogurt and kefir. Choose high-fiber grains, such as whole-wheat breads, oat bran, and wheat cereals. Cooking Do not add salt to food when cooking. Place a salt shaker on the table and allow each person to add their own salt to taste. Use vegetable protein, such as beans, textured vegetable protein (TVP), or tofu, instead of meat in pasta, casseroles, and soups. Meal planning Eat less salt, if told by your dietitian. To do this: ?Avoid eating processed or pre-made food. ?Avoid eating fast food. Eat less animal protein, including cheese, meat, poultry, or fish, if told by your dietitian. To do this: ?Limit the number of times you have meat, poultry, fish, or cheese each week. Eat a diet free of meat at least 2 days a week. ?Eat only one serving each day of meat, poultry, fish, or seafood. ?When you prepare animal proteins, cut pieces into small portion sizes. For most meat and fish, one serving is about the size of the palm of your hand. Eat at least five servings of fresh fruits and vegetables each day. To do this: ?Keep fruits and vegetables on hand for snacks. ?Eat one piece of fruit or a handful of berries with breakfast. ?Have a salad and fruit at lunch. ?Have two kinds of vegetables at dinner. You may be told to limit foods that are high in a substance called oxalate. These include: ?Spinach (cooked), rhubarb, beets, sweet potatoes, and Prydeinig chard. ?Peanuts. ?Potato chips, [place] fries, and baked potatoes with skin on. ?Nuts and nut products. ?Chocolate. If you regularly take a diuretic medicine, make sure to eat at least 1 or 2 servings of fruits or vegetables that are high in potassium each day. These include: ?Avocado. ?Banana. ?[place], prune, carrot, or tomato juice. ?Baked potato. ?Cabbage. ?Beans and split peas. Lifestyle Drink enough fluid to keep your urine pale yellow. This is the most important thing you can do. Spread your fluid intake throughout the day. If you drink alcohol: ?Limit how much you have to: ?0 1 drink a day for women who are not . ?0 2 drinks a day for men. ?Know how much alcohol is in your drink. In the [place] one drink equals one 12 oz bottle of beer (355 mL), one 5 oz glass of wine (148 mL), or one 1 oz glass of hard liquor (44 mL). Lose weight if told by your health care provider. Work with your dietitian to find an eating plan and weight loss strategies that work best for you. General information Talk to your health care provider and dietitian about taking daily supplements. Depending on your health and the cause of your kidney stones, you may be told: ?Do not take high-dose supplements of vitamin C (1,000 mg a day or more). ?To take a calcium supplement. ?To take a daily probiotic supplement. ?To take other supplements such as magnesium, fish oil, or vitamin B6. Take dqpg-utb-rzroqgv and prescription medicines only as told by your health care provider. These include supplements. What foods should I limit? Limit your intake of the following foods, or eat them as told by your dietitian. Vegetables Spinach. Rhubarb. Beets. Canned vegetables. Pickles. Olives. Baked potatoes with skin. Grains Wheat bran. Baked goods. Salted crackers. Cereals high in sugar. Meats and other proteins Nuts. Nut butters. Large portions of meat, poultry, or fish. Salted, precooked, or cured meats, such as sausages, meat loaves, and hot dogs. Dairy Cheeses. Beverages Regular soft drinks. Regular vegetable juice. Seasonings and condiments Seasoning blends with salt. Salad dressings. Soy sauce. Ketchup. Barbecue sauce. Other foods Canned soups. Canned pasta sauce. Casseroles. Pizza. Lasagna. Frozen meals. Potato chips. Russian fries. The items listed above may not be a complete list of foods and beverages you should limit. Contact a dietitian for more information. What foods should I avoid? Talk to your dietitian about specific foods you should avoid based on the type of kidney stones you have and your overall health. Fruits Grapefruit. The item listed above may not be a complete list of foods and beverages you should avoid. Contact a dietitian for more information. Summary Kidney stones are deposits of minerals and salts that form inside your kidneys. You can lower your risk of kidney stones by making changes to your diet. The most important thing you can do is drink enough fluid. Drink enough fluid to keep your urine pale yellow. Talk to your dietitian about how much calcium you should have each day, and eat less salt and animal protein as told by your dietitian. This information is not intended to replace advice given to you by your health care provider. Make sure you discuss any questions you have with your health care provider. Document Revised: 05/24/2022 Document Reviewed: 05/24/2022 [employer] Patient Education 2022 [employer]. Follow Up Care 07/27/2022 14:20:34 With:LIDIA JACOBS, Cecelia Jj, URL Address: [facility] [address] , [place] [address]- When:Within 1 Year(s) Comments:w/CT AP w/o José [facility] 01-23-2023 Miscellaneous Notes Received fax from [employer]. Scanned into [employer]. Also received a RTW from [employer]. Scanned into [employer] as well. documented in this encounter [facility] 12-21-2022 Miscellaneous Notes Patient called with complaints of [facility] not allowing him to strip picker the pain medication that was sent yesterday. They are telling the patient that he is picking it up too soon. Per patient, the old bottle had instructions to take every 12 hours, but his post op instruction said to take every 3 hours as needed, which is what he did. He would like our office to call the pharmacy and have them release is medication. Please call patient with an update. documented in this encounter [facility] 12-20-2022 Note HNO ID: [id number] Author: Helen Morgan PA-C Service: ? Author Type: Physician Paper Baler Type: Progress Notes Filed: 12/20/2022 3:17 PM Note Text: SPINE SURGERY FOLLOW UP This is an in-person visit. SERVICE DATE: 12/20/2022 SURGERY DATE: 12/07/22 Sukhdeep Simental is seen for 2 week post operative follow up from L2-S1 revision instrumented fusion, L2-3 3-4 TLIF. He states his pre-op pain is unchanged. He is using a rollator for ambulation. He is having a pins and needles feeling in his right foot which is new. PAIN EVALUATION 12/20/2022 1425 Pain Level: 8 Pain Location: Back-Lower Description: Burning;Aching;Other: See comment Frequency: Continuous Comments: spikes Patient Entered Questionnaires PROMIS Score Percentiles Percentiles provide an indication of how the patient's score ranks in relation to the general population. Higher percentile rankings indicate better function/quality of life. 50th percentile is the average of the general population and indicates half of respondents had a worse score. Depression Screening: PHQ-9 Self-Harm (Item 9) response options: 0 Not at all 1 Several days 2 More than half the days 3 Nearly every day PHQ-9 Levels: 0-4 No to mild depression 5-9 Mild depression 10-14 Moderate depression 15-19 Moderately severe depression 20-27 Severe depression PHYSICAL EXAM: BP 165/84 Pulse 76 Ht 175.3 cm (5' 9 ) Wt 123.1 kg (271 lb 6.4 oz) SpO2 97% BMI 40.08 kg/m? GENERAL APPEARANCE: Well nourished, well developed, and no apparent distress. NEURO PSYCH: Patient oriented to person, place, and time. Mood pleasant. Benign affect. MUSCULOSKELETAL VISUAL INSPECTION CERVICAL: WNL THORACIC: WNL LUMBAR: WNL MOTOR: 5/5 in all muscle groups. SENSORY: Normal sensory exam GAIT: Using rollator, + shopping cart. Incision healing well with mahendra. DATA REVIEW No additional images reviewed today ASSESSMENT/PLAN (M51.36, M43.16) Lumbar adjacent segment disease with spondylolisthesis (primary encounter diagnosis) Sukhdeep Simental will continue with medical management of his/her condition. 1. Percocet refill sent. 2. Follow up: 6 weeks post op 3. Standing x-rays ordered. 4. We will discuss PT at next appointment. I spent a total of 20 minutes on the date of the service which included preparing to see the patient, [id number] patient care, completing clinical documentation, obtaining and/or reviewing separately obtained history, performing a medically appropriate examination, counseling and educating the patient/family/caregiver, and ordering medications, tests, or procedures. SIGNATURE: Helen Morgan PA-C PATIENT NAME: Sukhdeep Simental DATE: December 20, 2022 TIME: 2:58 PM PAGER: [facility] 12-20-2022 History of Presen t illness Narrative SPINE SURGERY FOLLOW UP This is an in-person visit. SERVICE DATE: 12/20/2022 SURGERY DATE: 12/07/22 Sukhdeep Simental is seen for 2 week post operative follow up from L2-S1 revision instrumented fusion, L2-3 3-4 TLIF. He states his pre-op pain is unchanged. He is using a rollator for ambulation. He is having a pins and needles feeling in his right foot which is new. PAIN EVALUATION 12/20/2022 1425 Pain Level: 8 Pain Location: Back-Lower Description: Burning;Aching;Other: See comment Frequency: Continuous Comments: spikes Patient Entered Questionnaires PROMIS Score Percentiles Percentiles provide an indication of how the patient's score ranks in relation to the general population. Higher percentile rankings indicate better function/quality of life. 50th percentile is the average of the general population and indicates half of respondents had a worse score. Depression Screening: PHQ-9 Self-Harm (Item 9) response options: 0 Not at all 1 Several days 2 More than half the days 3 Nearly every day PHQ-9 Levels: 0-4 No to mild depression 5-9 Mild depression 10-14 Moderate depression 15-19 Moderately severe depression 20-27 Severe depression PHYSICAL EXAM: BP 165/84 Pulse 76 Ht 175.3 cm (5' 9 ) Wt 123.1 kg (271 lb 6.4 oz) SpO2 97% BMI 40.08 kg/m GENERAL APPEARANCE: Well nourished, well developed, and no apparent distress. NEURO PSYCH: Patient oriented to person, place, and time. Mood pleasant. Benign affect. MUSCULOSKELETAL VISUAL INSPECTION CERVICAL: WNL THORACIC: WNL LUMBAR: WNL MOTOR: 5/5 in all muscle groups. SENSORY: Normal sensory exam GAIT: Using rollator, + shopping cart. Incision healing well with mahendra. DATA REVIEW No additional images reviewed today ASSESSMENT/PLAN (M51.36, M43.16) Lumbar adjacent segment disease with spondylolisthesis (primary encounter diagnosis) Sukhdeep Simental will continue with medical management of his/her condition. 1. Percocet refill sent. 2. Follow up: 6 weeks post op 3. Standing x-rays ordered. 4. We will discuss PT at next appointment. I spent a total of 20 minutes on the date of the service which included preparing to see the patient, [id number] patient care, completing clinical documentation, obtaining and/or reviewing separately obtained history, performing a medically appropriate examination, counseling and educating the patient/family/caregiver, and ordering medications, tests, or procedures. SIGNATURE: Helen Morgan PA-C PATIENT NAME: Sukhdeep Simental DATE: December 20, 2022 TIME: 2:58 PM PAGER: documented in this encounter [facility] 12-17-2022 Miscellaneous Notes Forms completed and signed by provider. Faxed to number provided and and Sukhdeep notified via voice mail, as requested. Scanned into OnBase. Form completed. Awaiting signature. Printed for review. Received FMLA form by fax from patient's . Scanned to patient's chart for review and completion. documented in this encounter [facility] 12-13-2022 Miscellaneous Notes Spoke with patient at 12:22 PM on 12/13/2022. Over the past 2 days he developed numbness in the right ring and little fingers. Denies spreading of the numbness, pain, or weakness in the hand or arm. Discussed that this could be from positioning during surgery but likely not related to the lumbar surgery. Advised to keep an eye on it and if anything worsens or he develops weakness to give our office a carly. Myrna Schrader PA-C Patient at [phone] is requesting a call back. He had back surgery on 12-07. He states for the past 2 days his right ring and little finger has been numb. documented in this encounter [facility] 12-12-2022 Miscellaneous Notes Spoke with pharmacy and was informed that medication is approved. No prior authorization needed. Patient called stating pharmacy needs a prior authorization for oxycodone 15 mg. I called the pharmacy on 12/12/2022 at 9:40 AM. Insurance will not pay for the frequency of medication written. They will cover q12h. Prescription changed to oxycodone 15 mg 12h. [email or web address] [id number] - [place] [address] - [phone] - [phone] Pharmacist at [facility] wanted to inform the office that this patient already takes Percocet 10-325 every 6 hours, picked it up 13 days ago. They tried running the Percocet but his insurance will not cover both. Please call them back with new instructions. documented in this encounter [facility] 12-11-2022 Note HNO ID: [id number] Author: Lulu Oviedo MD Service: General Internal Medicine Author Type: Physician Type: Progress Notes Filed: 12/11/2022 12:53 PM Note Text: PROGRESS NOTE - INTERNAL MEDICINE PATIENT NAME: Sukhdeep Simental SERVICE DATE: December 11, 2022 SERVICE TIME: 12:52 PM PCP: Derick Isabel MD ADMITTING PHYSICIAN: Edd Mahtew MD MD INTERVAL HISTORY OF PRESENT ILLNESS: pt seen denied cp/ sob no weakness . No n/v REVIEW OF SYSTEMS: GENERAL: No weight loss, malaise or fevers RESPIRATORY: Negative for cough, hemoptysis, wheezing, COPD, dyspnea or shortness of breath CARDIOVASCULAR: Negative for chest pain, leg swelling, hypertension, CHF or palpitations GI: No nausea, vomiting, or diarrhea : No history of dysuria, frequency or incontinence PSYCH: Negative for sleep disturbance, mood disorder and recent psychosocial stressors. ENDOCRINE: Negative for cold or heat intolerance, polyuria, polydipsia and goiter All other reviewed and negative other than HPI. PRIOR TO ADMISSION MEDICATIONS: FEROSUL 325 mg (65 mg iron) tablet, Take 1 tablet by mouth every 12 (twelve) hours., Disp: , Rfl: , 12/06/2022 hydrOXYzine HCl (ATARAX) 25 mg tablet, TAKE 1 TABLET BY MOUTH FOUR TIMES DAILY NEEDED MUST LAST 30 DAYS, Disp: , Rfl: , Past Week omeprazole (PRILOSEC) 20 mg capsule, Take 1 capsule by mouth twice daily., Disp: , Rfl: , 12/06/2022 doxazosin (CARDURA) 4 mg tablet, Take 4 mg by mouth., Disp: , Rfl: , 12/07/2022 irbesartan (AVAPRO) 300 mg tablet, 1/2 tablet Orally Once a day for 60 days, Disp: , Rfl: , 12/06/2022 pioglitazone (ACTOS) 30 mg tablet, , Disp: , Rfl: , 12/06/2022 bumetanide (BUMEX) 1 mg tablet, Take 1 tablet by mouth once daily., Disp: , Rfl: , 12/06/2022 tamsulosin (FLOMAX) 0.4 mg, Take 1 capsule by mouth once daily., Disp: , Rfl: , 12/07/2022 traZODone (DESYREL) 150 mg tablet, , Disp: , Rfl: , 12/06/2022 simvastatin (ZOCOR) 10 mg tablet, Take 1 tablet by mouth once daily., Disp: , Rfl: , 12/06/2022 metoclopramide HCl (REGLAN) 10 mg tablet, Take 10 mg by mouth as needed., Disp: , Rfl: , 10/22/2022 tizanidine HCl (ZANAFLEX ORAL), daily at bedtime., Disp: , Rfl: , 12/05/2022 testosterone cypionate (DEPO-TESTOSTERONE) 100 mg/mL injection, INJECT 1.5 ML INTO THE MUSCLE EVERY 2 WEEKS DIRECTED, Disp: , Rfl: , 12/02/2022 INs AND OUT SUMMARY: Intake/Output Summary (Last 24 hours) at 12/11/2022 1252 Last data filed at 12/10/2022 2300 Gross per 24 hour Intake -- Output 141 ml Net -141 ml PHYSICAL EXAM: Patient Vitals for the past 24 hrs: BP Temp Temp src Pulse Resp SpO2 12/11/22 1156 117/68 37.1 ?C (98.8 ?F) Oral 81 18 91 % 12/11/22 0507 156/83 36.8 ?C (98.3 ?F) Oral 100 16 100 % 12/10/22 2228 105/57 36.9 ?C (98.4 ?F) Oral 68 16 95 % 12/10/22 1757 126/70 -- -- (!) 55 -- -- GENERAL: Alert, no distress, cooperative SKIN: Skin color, texture, turgor normal. No rashes or lesions. NECK: No jugulovenous distention, No carotid bruits, Carotid pulse normal contour, Supple LUNGS: Lungs clear to auscultation. Good diaphragmatic excursion. CARDIAC: Normal S1 and S2; no rubs, murmurs, or gallops ABDOMEN: Abdomen soft, non-tender. BS normal. No masses or organomegaly. EXTREMETIES: Extremities normal. No deformities, edema, clubbing or skin discoloration. NEURO: Alert, oriented X 3, Cranial nerves II-XII intact, Gait normal. Reflexes normal and symmetric. Sensation grossly intact. PULSES: 2+ radial, 2+ carotid DATA: CBC, Coags, BMP, Mg, Phos Recent Labs 12/11/22 0450 12/10/22 0440 12/09/22 045 WBC 9.04 8.16 8.72 HB 11.7* 10.9* 11.6* HCT 34.6* 32.7* 34.1* PLT 196 157 159 NA 143 140 142 K 4.8 4.3 3.9 CHLOR 106* 107* 106* CO2 29 26 30 BUN 13 16 18 CREAT 1.17 1.16 1.34* GLUC 98 129* 105* CA 8.7 8.3* 8.5 CSF AND Dilantin Liver Function, Amylase, AND Lipase IMAGING Reviewed and discussed with the patient. IN-PATIENT MEDICATIONS: Current Facility-Administered Medications Medication Dose Route Frequency simvastatin 10 mg tab(s) (ZOCOR) 10 mg ORAL AT BEDTIME tamsulosin 0.4 mg cap(s) (FLOMAX) 0.4 mg ORAL DAILY doxazosin 4 mg tab(s) (CARDURA) 4 mg ORAL DAILY NaCl 0.9% iv flush bag 20 mL INTRAVENOUS PRN lactated ringers iv infusion 75 mL/hr INTRAVENOUS CONTINUOUS docusate sodium 100 mg cap(s) (COLACE) 100 mg ORAL BID valsartan 80 mg tab(s) (DIOVAN) 80 mg ORAL DAILY hydrOXYzine HCl 25 mg tab(s) (ATARAX) 25 mg ORAL q 6 H PRN ferrous sulfate 325 mg tab(s) 325 mg ORAL DAILY traZODone 150 mg tab(s) (DESYREL) 150 mg ORAL AT BEDTIME acetaminophen 1,000 mg tab(s) (TYLENOL) 1,000 mg ORAL q 8 H polyethylene glycol 3350 17 g packet 17 g ORAL DAILY dextrose 40 % 15 g 15 g ORAL PRN Or glucagon 1 mg injection 1 mg INTRAMUSCULAR PRN Or dextrose 10% iv bolus 12.5 g INTRAVENOUS PRN insulin lispro injection (rapid acting) (HumaLOG) SUBCUTANEOUS w MEALS AND HS bisacodyl EC 10 mg tab( (more content not included)... [facility] 12-10-2022 Note HNO ID: [id number] Author: Lulu Oviedo MD Service: General Internal Medicine Author Type: Physician Type: Progress Notes Filed: 12/10/2022 1:03 PM Note Text: PROGRESS NOTE - INTERNAL MEDICINE PATIENT NAME: Sukhdeep Simental SERVICE DATE: December 10, 2022 SERVICE TIME: 1:01 PM PCP: Derick Isabel MD ADMITTING PHYSICIAN: Edd Mathew MD MD INTERVAL HISTORY OF PRESENT ILLNESS: pt seen denied cp/ sob . Pain 07/04 / no weakness REVIEW OF SYSTEMS: GENERAL: No weight loss, malaise or fevers RESPIRATORY: Negative for cough, hemoptysis, wheezing, COPD, dyspnea or shortness of breath CARDIOVASCULAR: Negative for chest pain, leg swelling, hypertension, CHF or palpitations GI: No nausea, vomiting, or diarrhea : No history of dysuria, frequency or incontinence PSYCH: Negative for sleep disturbance, mood disorder and recent psychosocial stressors. ENDOCRINE: Negative for cold or heat intolerance, polyuria, polydipsia and goiter All other reviewed and negative other than HPI. PRIOR TO ADMISSION MEDICATIONS: bumetanide (BUMEX) 1 mg tablet, Take 1 tablet by mouth once daily., Disp: , Rfl: , 12/06/2022 doxazosin (CARDURA) 4 mg tablet, Take 4 mg by mouth., Disp: , Rfl: , 12/07/2022 FEROSUL 325 mg (65 mg iron) tablet, Take 1 tablet by mouth every 12 (twelve) hours., Disp: , Rfl: , 12/06/2022 hydrOXYzine HCl (ATARAX) 25 mg tablet, TAKE 1 TABLET BY MOUTH FOUR TIMES DAILY NEEDED MUST LAST 30 DAYS, Disp: , Rfl: , Past Week irbesartan (AVAPRO) 300 mg tablet, 1/2 tablet Orally Once a day for 60 days, Disp: , Rfl: , 12/06/2022 metoclopramide HCl (REGLAN) 10 mg tablet, Take 10 mg by mouth as needed., Disp: , Rfl: , 10/22/2022 omeprazole (PRILOSEC) 20 mg capsule, Take 1 capsule by mouth twice daily., Disp: , Rfl: , 12/06/2022 pioglitazone (ACTOS) 30 mg tablet, , Disp: , Rfl: , 12/06/2022 simvastatin (ZOCOR) 10 mg tablet, Take 1 tablet by mouth once daily., Disp: , Rfl: , 12/06/2022 tamsulosin (FLOMAX) 0.4 mg, Take 1 capsule by mouth once daily., Disp: , Rfl: , 12/07/2022 testosterone cypionate (DEPO-TESTOSTERONE) 100 mg/mL injection, INJECT 1.5 ML INTO THE MUSCLE EVERY 2 WEEKS DIRECTED, Disp: , Rfl: , 12/02/2022 tizanidine HCl (ZANAFLEX ORAL), daily at bedtime., Disp: , Rfl: , 12/05/2022 traZODone (DESYREL) 150 mg tablet, , Disp: , Rfl: , 12/06/2022 INs AND OUT SUMMARY: Intake/Output Summary (Last 24 hours) at 12/10/2022 1301 Last data filed at 12/10/2022 0500 Gross per 24 hour Intake 300 ml Output 435 ml Net -135 ml PHYSICAL EXAM: Patient Vitals for the past 24 hrs: BP Temp Temp src Pulse Resp SpO2 12/10/22 1120 173/63 36.9 ?C (98.5 ?F) Oral 90 18 97 % 12/10/22 0819 135/95 -- -- 80 -- -- 12/10/22 0401 144/78 37.2 ?C (99 ?F) Oral 79 18 91 % 12/09/22 2028 135/66 36.9 ?C (98.4 ?F) Oral 77 18 99 % 12/09/22 1821 -- -- -- -- 16 95 % 12/09/22 1639 123/61 37.1 ?C (98.8 ?F) Oral 78 16 94 % 12/09/22 1407 -- -- -- -- 16 97 % GENERAL: Alert, no distress, cooperative SKIN: Skin color, texture, turgor normal. No rashes or lesions. NECK: No jugulovenous distention, No carotid bruits, Carotid pulse normal contour, Supple LUNGS: Lungs clear to auscultation. Good diaphragmatic excursion. CARDIAC: Normal S1 and S2; no rubs, murmurs, or gallops ABDOMEN: Abdomen soft, non-tender. BS normal. No masses or organomegaly. EXTREMETIES: Extremities normal. No deformities, edema, clubbing or skin discoloration. NEURO: Alert, oriented X 3, Cranial nerves II-XII intact, Gait normal. Reflexes normal and symmetric. Sensation grossly intact. PULSES: 2+ radial, 2+ carotid DATA: CBC, Coags, BMP, Mg, Phos Recent Labs 12/10/22 0440 12/09/22 0459 12/08/22 0501 WBC 8.16 8.72 7.95 HB 10.9* 11.6* 11.7* HCT 32.7* 34.1* 34.8* PLT 157 159 162 NA 140 142 141 K 4.3 3.9 3.7 CHLOR 107* 106* 106* CO2 26 30 28 BUN 16 18 23 CREAT 1.16 1.34* 1.35* GLUC 129* 105* 139* CA 8.3* 8.5 8.2* CSF AND Dilantin Liver Function, Amylase, AND Lipase IMAGING Reviewed and discussed with the patient. IN-PATIENT MEDICATIONS: Current Facility-Administered Medications Medication Dose Route Frequency simvastatin 10 mg tab(s) (ZOCOR) 10 mg ORAL AT BEDTIME tamsulosin 0.4 mg cap(s) (FLOMAX) 0.4 mg ORAL DAILY doxazosin 4 mg tab(s) (CARDURA) 4 mg ORAL DAILY NaCl 0.9% iv flush bag 20 mL INTRAVENOUS PRN lactated ringers iv infusion 75 mL/hr INTRAVENOUS CONTINUOUS docusate sodium 100 mg cap(s) (COLACE) 100 mg ORAL BID valsartan 80 mg tab(s) (DIOVAN) 80 mg ORAL DAILY hydrOXYzine HCl 25 mg tab(s) (ATARAX) 25 mg ORAL q 6 H PRN ferrous sulfate 325 mg tab(s) 325 mg ORAL DAILY traZODone 150 mg tab(s) (DESYREL) 150 mg ORAL AT BEDTIME acetaminophen 1,000 mg tab(s) (TYLENOL) 1,000 mg ORAL q 8 H polyethylene glycol 3350 17 g packet 17 g ORAL DAILY dextrose 40 % 15 g 15 g ORAL PRN Or glucagon 1 mg injection 1 mg INTRAMUSCULAR PRN Or dextrose 10% iv bolu (more content not included)... [facility] 12-09-2022 Note HNO ID: [id number] Author: Alyssa Tim APRN.CNP Service: Neurosurgery Author Type: Nurse Practitioner Type: Progress Notes Filed: 12/09/2022 12:23 PM Note Text: NEUROSURGERY POST OP PROGRESS NOTE SERVICE DATE: December 09, 2022 SERVICE TIME: 12:03 PM POST OP DAY: #2 SUBJECTIVE Patient states that the preoperative symptoms of low back pain with radiation to right buttocks and down RLE are slightly improved but now he is having worsening burning pain in his left buttocks/hip area. Postoperative pain is currently not well controlled despite Dilaudid BED CONTROL SPECIALIST and Toradol. He denies new weakness, numbness, or tingling. He denies fevers, chest pain, SOB, or N/V. He is voiding well and passing flatus. YANG drain intact. OBJECTIVE BP 121/61 Pulse 86 Temp 37.2 ?C (99 ?F) (Oral) Resp 16 Ht 175.3 cm (5' 9 ) Wt 122.9 kg (271 lb) SpO2 91% BMI 40.02 kg/m? GENERAL: Alert, cooperative, and pleasant in no distress. Obese, appears well-developed and well-nourished. LUNGS: Lungs clear to auscultation, no wheezing or rales noted. Good diaphragmatic excursion. CARDIAC: Normal S1 and S2; no rubs, murmurs, or gallops. ABDOMEN: Soft, NTND, BS normal x4. EXTREMITIES: Bilateral lower extremities with 5/5 strength intact. NEURO: Alert and oriented to person, place, and time. Sensation and cognition intact. Incision: Dressing CDI. Drain: output is serosanguineous 180 ml/24hrs. Current Facility-Administered Medications Medication Dose Route Frequency Provider Last Rate Last Admin acetaminophen 1,000 mg tab(s) (TYLENOL) 1,000 mg ORAL q 8 H Alyssa Tim APRN.MICA MINER BLASTING 1,000 mg at 12/09/22 0559 aluminum-magnesium hydroxide-simethicone 200-200-20 mg/5 mL 30 mL 30 mL ORAL q 6 H PRN Alyssa Tim, RANGE MECHANIC.MICA MINER BLASTING bisacodyl EC 10 mg tab(s) (DULCOLAX) 10 mg ORAL DAILY PRN Alyssa Tim APRN.MICA MINER BLASTING dextrose 40 % 15 g 15 g ORAL PRN Archual, Alyssa, RANGE MECHANIC.MICA MINER [employer]ING Or glucagon 1 mg injection 1 mg INTRAMUSCULAR PRN Archual, Alyssa, RANGE MECHANIC.MICA MINER BLASTING Or dextrose 10% iv bolus 12.5 g INTRAVENOUS PRN Archual, Alyssa, RANGE MECHANIC.MICA MINER BLASTING docusate sodium 100 mg cap(s) (COLACE) 100 mg ORAL BID Edd Mathew MD 100 mg at 12/09/22 0821 doxazosin 4 mg tab(s) (CARDURA) 4 mg ORAL DAILY Edd Mathew MD 4 mg at 12/09/22 0821 fentaNYL BED CONTROL SPECIALIST 20 mcg/mL in NaCl 0.9% 100 mL (SUBLIMAZE) INTRAVENOUS CONTINUOUS Archual, Alyssa, RANGE MECHANIC.MICA MINER BLASTING ferrous sulfate 325 mg tab(s) 325 mg ORAL DAILY Archual, Alyssa, RANGE MECHANIC.MICA MINER BLASTING 325 mg at 12/09/22 0821 heparin 5,000 Units injection 5,000 Units SUBCUTANEOUS q 12 H Archual, Alyssa, RANGE MECHANIC.MICA MINER BLASTING 5,000 Units at 12/09/22 0821 hydrOXYzine HCl 25 mg tab(s) (ATARAX) 25 mg ORAL q 6 H PRN Archual, Alyssa, RANGE MECHANIC.MICA MINER BLASTING insulin lispro injection (rapid acting) (HumaLOG) SUBCUTANEOUS w MEALS AND HS Archual, Alyssa, RANGE MECHANIC.MICA MINER BLASTING 1 Units at 12/07/22 1803 lactated ringers iv infusion 75 mL/hr INTRAVENOUS CONTINUOUS Edd Mathew MD 75 mL/hr at 12/09/22 1018 75 mL/hr at 12/09/22 1018 methocarbamol 750 mg tab(s) (ROBAXIN) 750 mg ORAL QID Archual, Alyssa, RANGE MECHANIC.MICA MINER BLASTING NaCl 0.9% iv flush bag 20 mL INTRAVENOUS PRN Edd Mathew MD naloxone 0.1 mg injection (NARCAN) 0.1 mg INTRAVENOUS q 2 MIN PRN Archual, Alyssa, RANGE MECHANIC.MICA MINER BLASTING omeprazole 20 mg cap(s) (PriLOSEC) 20 mg ORAL 2 times per day Michael York RPh 20 mg at 12/08/222019 ondansetron 4 mg tab(s) (ZOFRAN) 4 mg ORAL q 6 H PRN Edd Mathew MD Or ondansetron (PF) 4 mg injection (ZOFRAN) 4 mg INTRAVENOUS q 6 H PRN Edd Mathew MD 4 mg at 12/09/22 0941 polyethylene glycol 3350 17 g packet 17 g ORAL DAILY Alyssa Tim APRN.MICA MINER BLASTING 17 g at 12/09/22 08 simvastatin 10 mg tab(s) (ZOCOR) 10 mg ORAL AT BEDTIME Edd Mathew MD 10 mg at 12/08/222019 tamsulosin 0.4 mg cap(s) (FLOMAX) 0.4 mg ORAL DAILY Edd Mathew MD 0.4 mg at 12/09/22 08 traZODone 150 mg tab(s) (DESYREL) 150 mg ORAL AT BEDTIME Alyssa Tim APRN.MICA MINER BLASTING 150 mg at 12/08/222019 valsartan 80 mg tab(s) (DIOVAN) 80 mg ORAL DAILY Alyssa Tim APRN.MICA MINER BLASTING 80 mg at 12/09/22 08 ASSESSMENT AND PLAN Sukhdeep Simental is a 57 year old male status post L2-S1 revision instrumented fusion and L2/3, L3/4 TLIF on 12/07/[address] Mathew. -Most recent labs and imaging results reviewed. -Strength is 5/5 in BLE -Dressing clean, dry, and intact -YANG drain intact, continue to monitor output -Recommend increasing activity and PT/OT consult -Incentive spirometry, ROMAINE hose, SCDs, Heparin SC started today -Post-operative pain control, Pain management consulted, started Fentanyl BED CONTROL SPECIALIST today due to continued uncontrolled pain, Robaxin and Tylenol scheduled, no further Toradol due to CKD 3. -Check postop lumbar XR today -Medicine consult for post-operative medical management -Discharge planning, anticipate discharge home in 1-2 more days. Plan of care discussed with Dr. Mathew via phone. Medication and Non-Pharmacologic VTE Prophylaxis/Anticoagulants 10/25/21 1215 vte pharmacologic prophylaxis contraindicated (fl,oh) (more content not included)... [facility] 12-08-2022 Note HNO ID: [id number] Author: Alyssa Tim APRN.MICA MINER BLASTING Service: Neurosurgery Author Type: Nurse Practitioner Type: Progress Notes Filed: 12/08/2022 1:50 PM Note Text: NEUROSURGERY POST OP PROGRESS NOTE SERVICE DATE: December 08, 2022 SERVICE TIME: 1:45 PM POST OP DAY: #1 SUBJECTIVE Patient states that the preoperative symptoms of low back pain with radiation to right buttocks and down RLE are the same since surgery. Postoperative pain is currently not well controlled. He denies new weakness, numbness, or tingling. He denies fevers, chest pain, SOB, or N/V. Browning removed, awaiting void. Passing flatus. YANG drain intact. OBJECTIVE BP 134/86 Pulse 72 Temp 37 ?C (98.6 ?F) Resp 16 Ht 175.3 cm (5' 9 ) Wt 122.9 kg (271 lb) SpO2 97% BMI 40.02 kg/m? GENERAL: Alert, cooperative, and pleasant in no distress. Obese, appears well-developed and well-nourished. LUNGS: Lungs clear to auscultation, no wheezing or rales noted. Good diaphragmatic excursion. CARDIAC: Normal S1 and S2; no rubs, murmurs, or gallops. ABDOMEN: Soft, NTND, BS normal x4. EXTREMITIES: Bilateral lower extremities with 5/5 strength intact. NEURO: Alert and oriented to person, place, and time. Sensation and cognition intact. Incision: dressing CDI. Drain: output is serosanguineous 500 ml/24hrs. Browning: Removed. Current Facility-Administered Medications Medication Dose Route Frequency NaCl 0.9% iv flush bag 20 mL INTRAVENOUS PRN sodium chloride 0.9 % (flush) 3-5 mL (BD POSIFLUSH) 3-5 mL INTRAVENOUS q 12 H lactated ringers iv infusion 50 mL/hr INTRAVENOUS CONTINUOUS oxyCODONE-acetaminophen 5-325 mg 1-2 tablet (PERCOCET) 1-2 tablet ORAL q 6 H PRN HYDROmorphone (PF) 0.5 mg injection (DILAUDID) 0.5 mg INTRAVENOUS q 3 H PRN keTORolac 15 mg injection (TORADOL) 15 mg INTRAVENOUS q 6 H cyclobenzaprine 10 mg tab(s) (FLEXERIL) 10 mg ORAL TID ondansetron 4 mg tab(s) (ZOFRAN) 4 mg ORAL q 6 H PRN Or ondansetron (PF) 4 mg injection (ZOFRAN) 4 mg INTRAVENOUS q 6 H PRN docusate sodium 100 mg cap(s) (COLACE) 100 mg ORAL BID [START ON 10/27/2021] bisacodyl 10 mg suppository (DULCOLAX) 10 mg RECTAL DAILY PRN thyroid 60 mg tab(s) 60 mg ORAL DAILY (6 AM) progesterone micronized 200 mg cap(s) (PROMETRIUM) 200 mg ORAL AT BEDTIME gabapentin 600 mg cap(s) (NEURONTIN) 600 mg ORAL TID DULoxetine 60 mg cap(s) (CYMBALTA) 60 mg ORAL AT BEDTIME ASSESSMENT AND PLAN Sukhdeep Simental is a 57 year old male status post L2-S1 revision instrumented fusion and L2/3, L3/4 TLIF on 12/07/[address] Mathew. -Most recent labs and imaging results reviewed. -Strength is 5/5 in BLE -Dressing clean, dry, and intact -YANG drain intact, continue to monitor output -Browning catheter removed, awaiting void -Recommend increasing activity and PT/OT consult -Incentive spirometry, ROMAINE hose, SCDs, Heparin SC to start on POD #2 -Post-operative pain control, Dilaudid BED CONTROL SPECIALIST discontinued. Continue Tylenol, Toradol IV, and Robaxin PRN. Start oxycodone every 3 hours PRN and Dilaudid IV PRN. -Check postop XR tomorrow. -Medicine consult for post-operative medical management -Discharge planning, anticipate discharge home in 1-2 more days. Plan of care discussed with Dr Hopper via phone. Medication and Non-Pharmacologic VTE Prophylaxis/Anticoagulants 10/25/21 1215 vte pharmacologic prophylaxis contraindicated (tn,az) 10/25/21 1215 pneumatic compression stockings (tn,az) 10/25/21 1215 activity - mobilize patient ([place], [place]) VTE Prophylaxis: VTE prophylaxis appropriate SIGNATURE: Alyssa Tim APRN.MICA MINER [employer]ING DATE: December 08, 2022 TIME: 1:50 PM [facility] 12-08-2022 Note HNO ID: [id number] Author: Note, Interface Service: ? Author Type: ? Type: Progress Notes Filed: 12/08/2022 3:59 AM Note Text: Epic Scheduled Downtime: 12/08/2022 1:00:00 AM to 12/08/2022 1:28:00 AM [facility] 12-07-2022 Note HNO ID: [id number] Author: Aaron Noriega AA Service: Anesthesiology Author Type: Ip Litigation Associate Type: Anesthesia Procedure Notes Filed: 12/07/2022 8:04 AM Note Text: ANESTHESIOLOGY PROCEDURE NOTE Airway General Information Procedure Start Time/Medication Administration: 12/07/2022 7:49 AM Patient location during procedure: OR Timeout Performed Pre-procedure: timeout performed Consent Obtained: Yes Patient identity confirmed: arm band and patient Staffing CAA: Aaron Noriega AA Performed by: anesthesiologist and CAA Indications and Patient Condition Indications for airway management: anesthesia Preoxygenated: yes anesthesia circuit Patient position: sniffing Method: asleep Cricoid Pressure: Yes Manual In-Line Stabilization: No Difficult Mask: No Airway Accessory: oral airway Final Airway Details Final airway type: endotracheal airway Final Endotracheal Airway: ETT Cuffed: yes Successful intubation technique: direct laryngoscopy Endotracheal tube insertion site: oral Blade: Victor Manuel Blade size: #4 ETT size (mm): 7.5 Measured from: lips Measurement (cm): 23 Placement verified by: chest auscultation and capnometry Cormack-Lehane Classification: grade IIa - partial view of glottis Number of attempts at approach: 1 Failed airway: no Airway not difficult SIGNATURE: JOSÉ MIGUEL Yan PATIENT NAME: Sukhdeep Simental DATE: December 07, 2022 TIME: 8:03 AM CSN: [id number] [facility] 12-06-2022 Evaluation note Encounter Date Diagnosis Assessment Notes Nov, 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 He currently takes irbesartan for renal protection. I will continue that. I discussed with him that he may benefit with the SGLT2 inhibitor due to his including Farxiga, Jardiance or Invokana. He reported that he was on Farxiga before but was not able to afford it due to the high cost. I also explained to him due to the hyperkalemia in the past with the spironolactone I will avoid to prescribe him Kerendia. Nov, Chronic kidney disease, stage III (moderate) (ICD-10 - N18.30) He has a CKD likely due to the longstanding DM and HTN. His baseline serum creatinine is 1.4- 1.6 mg/dL. His renal function fluctuates based on his hemodynamic and diuretic use. His renal ultrasound showed a right-sided nephrolithiasis and benign cysts with no evidence of obstructive uropathy or kidney mass. I discussed with him importance of good DM and HTN control to slow down the progression of CKD. He has no absolute contraindication for surgery from renal standpoint. Explained to him possible risk of LARS due to the perioperative hemodynamic changes. He understood and and verbalized information. He has a mildly elevated free light chain ratio likely due to the CKD but unremarkable SPEP, serum and urine immunofixation Nov, Ashvin hy kid w cr kid I-IV (ICD-10 - I12.9) Blood pressure is controlled. He appears to be euvolemic. Continue current medication irbesartan and Bumex. Nov, Secondary hyperparathyroidis m (ICD-10 - N25.81) MBD parameters including calcium, phosphorus, PTH and vitamin D are within the goal. Nov, Microscopic hematuria (ICD-10 - R31.29) He has intermittent microscopic hematuria likely due to the nephrolithiasis. Nov, Nephrolithiasis (ICD-10 - N20.0) Continue follow-up with urology. Nov, Hyperuricemia (ICD-10 - E79.0) He has hyperuricemia due to the CKD but denies any recent gout flare. We will continue to monitor without any medications. Nov, Other Hemoglobin is within the goal but has adequate iron stores. 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 12/07/2022 documented as of this encounter (statuses as of 12/18/2022) [address]27-2023 History of Past illness Narrative* Problem Noted Date Diagnosed Date Resolved Date Secondary hyperparathyroidism 11/21/2022 11/21/2022 11/21/2022 Corneal edema, unspecified 12/10/2013 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 12/07/2022 documented as of this encounter (statuses as of 12/21/2022) [address]27-2023 History of Past illness Narrative* Problem Noted Date Diagnosed Date Resolved Date Secondary hyperparathyroidism 11/21/2022 11/21/2022 11/21/2022 Corneal edema, unspecified 12/10/2013 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 12/07/2022 documented as of this encounter (statuses as of 12/21/2022) [address]27-2023 History of Past illness Narrative* Problem Noted Date Diagnosed Date Resolved Date Secondary hyperparathyroidism 11/21/2022 11/21/2022 11/21/2022 Corneal edema, unspecified 12/10/2013 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 12/07/2022 documented as of this encounter (statuses as of 01/24/2023) [address]27-2023 History of Past illness Narrative* Problem Noted Date Diagnosed Date Resolved Date Secondary hyperparathyroidism 11/21/2022 11/21/2022 11/21/2022 Corneal edema, unspecified 12/10/2013 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 12/07/2022 documented as of this encounter (statuses as of 02/08/2023) [address]27-2023 History of Past illness Narrative* Problem Noted Date Diagnosed Date Resolved Date Secondary hyperparathyroidism 11/21/2022 11/21/2022 11/21/2022 Corneal edema, unspecified 12/10/2013 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 12/07/2022 documented as of this encounter (statuses as of 02/09/2023) [facility]-27-2023 History of Past illness Narrative* Problem Noted Date Diagnosed Date Resolved Date Secondary hyperparathyroidism 11/21/2022 11/21/2022 11/21/2022 Corneal edema, unspecified 12/10/2013 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 12/07/2022 documented as of this encounter (statuses as of 04/09/2023) [facility]09-27-2023 History of Past illness Narrative* Problem Noted Date Diagnosed Date Resolved Date Secondary hyperparathyroidism 11/21/2022 11/21/2022 11/21/2022 Corneal edema, unspecified 12/10/2013 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 12/07/2022 documented as of this encounter (statuses as of 04/18/2023) [facility]-2023 History of Past illness Narrative* Problem Noted Date Diagnosed Date Resolved Date Secondary hyperparathyroidism 11/21/2022 11/21/2022 11/21/2022 Corneal edema, unspecified 12/10/2013 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 12/07/2022 documented as of this encounter (statuses as of 05/13/2023) [facility]27-2023 History of Past illness Narrative* Problem Noted Date Diagnosed Date Resolved Date Secondary hyperparathyroidism 11/21/2022 11/21/2022 11/21/2022 Corneal edema, unspecified 12/10/2013 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 12/07/2022 documented as of this encounter (statuses as of 06/06/2023) [facility]2023 Nurse Note* Juan Pablo Nova RN - 11/05/2022 3:11 PM EDT Neuro SPINE CARE COORDINATION PRE-OP VISIT Met with patient and spouse for pre op education. Given both written and verbal instructions re : Skin prep, wound care, pain management and post op restrictions. Provided to patient: [facility] Surgery Guide, skin prep supplies, Spine Surgery Pre/post op education packet. Yes Reviewed with patient to report to the registration desk for surgery? Yes. Reviewed with the patient that a surgery retail sales representative will call the working day prior to surgery to confirm surgery time? Yes. Patient aware eat nothing after midnight prior to surgery, clear liquids only until 2 hours before report time. Yes. Patient aware surgery will be INPATIENT. Discussed care post discharge : Self care. Does patient have transportation to and from surgery ? Yes. Falls Education provided ? Yes Nasal swab obtained ? No. Patient instructed in mupirocin treatment : Prescription will be sent to preferred pharmacy. Questions answered and patient and spouse voice(s) understanding via teach back. Additional Comments : Post -op Support. Juan Pablo Nova RN Neuro SPINE CARE COORDINATION SURGERY SCHEDULING Patient accepts surgery date of 12/07/[address] Mathew. Planned procedure is L2-S1 revision fusion, L2-3, 3-4 TLIF. PACC will be scheduled by office. [employer] : N/A Medications reviewed : Yes. Meds to be stopped prior to surgery : other : N/A. Additional pre op clearances needed : none. Any implanted devices : No. Transplant History No. Patient will get optimization lab work : To be completed at [facility]. Questions answered. Patient verbalizes understanding via teach back. Additional comments : Informed to call with any questions or concerns. Juan Pablo Nova RN [facility] NoteHNO ID: [id number] Author: Edd Mathew MD Service: ? Author Type: Physician Type: Progress Notes Filed: 11/09/2022 8:29 AM Note Text: SPINE SURGERY NEW PATIENT This is an in-person visit. PCP: Derick Isabel MD REFERRING PROVIDER: Jason Kiser SUBJECTIVE HISTORY OF PRESENT ILLNESS: Sukhdeep Simental is a 57 year old male. Complains of lower back pain radiating to bilateral hips and down both thighs. Right leg pain > Left leg pain. Mild walking difficulty. The pain averages around 8/10. It is affecting the patient daily activities. The pain is worse with activities and partially relieved with rest. It has been debilitating to the patient. He denies any weakness, bowel or bladder incontinence. He is also complaining of acute numbness and tingling in toes of bilateral feet. He tried Percocet and Tramadol for pain relief. He received spinal injections which gave him minimal pain relief. He underwent an L4-S1 fusion in the past. CHIEF COMPLAINT: Lower back and bilateral leg pain PRECIPITATING EVENT: None DURATION OF SYMPTOMS: Greater Than 1 Year PAIN EVALUATION 11/05/2022 1401 Pain Level: 8 Pain Location: Back-Lower Description: Sharp;Burning;Aching Frequency: Continuous Pain Radiation: low back to bilateral hips and thighs Aggravating Factors: Constant Alleviating Factors: Medications Pain Ratio: Pain in the back is greater than in the leg DERMATOMAL DISTRIBUTION: Not applicable AMBULATORY STATUS: Impaired Community Distances ANTIPLATELET OR ANTICOAGULATION STATUS: No PREVIOUS CONSERVATIVE TREATMENTS: Percocet Tramadol Injections PREVIOUS SPINAL SURGERY: SURGERY #1: L4-S1 fusion ACTIVE PROBLEM LIST Herpes Simplex Iridocyclitis Corneal Edema, Unspecified PAST MEDICAL HISTORY Diagnosis Date Central corneal ulcer Herpes simplex iridocyclitis Hypertension PAST SURGICAL HISTORY Procedure Laterality Date PAST SURGICAL HISTORY OF knee replacment right PAST SURGICAL HISTORY OF kidney stones removed FAMILY HISTORY Problem Relation Age of Onset Cancer Father Diabetes Mother Detached Retina Maternal Uncle Hypertension Maternal Uncle Social History Tobacco Use Smoking status: Never Smokeless tobacco: Never Substance Use Topics Alcohol use: No Drug use: No ALLERGIES No Known Allergies MEDICATIONS: doxazosin (CARDURA) 4 mg tablet Take 4 mg by mouth. irbesartan (AVAPRO) 300 mg tablet 1/2 tablet Orally Once a day for 60 days pioglitazone (ACTOS) 30 mg tablet bumetanide (BUMEX) 1 mg tablet Take 1 tablet by mouth once daily. tamsulosin (FLOMAX) 0.4 mg Take 1 capsule by mouth once daily. tizanidine HCl (ZANAFLEX ORAL) traZODone (DESYREL) 150 mg tablet simvastatin (ZOCOR) 10 mg tablet Take 1 tablet by mouth once daily. testosterone cypionate (DEPO-TESTOSTERONE) 100 mg/mL injection INJECT 1.5 ML INTO THE MUSCLE EVERY 2 WEEKS DIRECTED CETIRIZINE HCL (ZYRTEC ORAL) Take by mouth. Prn [START ON 12/02/2022] mupirocin (BACTROBAN) 2 % ointment Apply 1/2 ointment with a cotton swab in each nostril 2x daily for five days preop valACYclovir (VALTREX) 500 mg tablet Take 1 tablet by mouth once daily. (Patient not taking: Reported on 11/05/2022) prednisoLONE acetate (PRED FORTE, ECONOPRED PLUS) 1 % ophthalmic suspension Use 1 Drop in the right eye once daily. (Patient not taking: Reported on 11/05/2022) buprenorphine (BUTRANS) 10 mcg/hour Apply 1 Patch as directed once each week. (Patient not taking: Reported on 11/05/2022) Brimonidine-Timolol (COMBIGAN) 0.2-0.5 % drop Use 1 Drop in the right eye twice daily. (Patient not taking: Reported on 11/05/2022) voriconazole (VFEND) 1% Ophth Drops ([facility]F) Use 1 Drop in the right eye every 2 hours. (Patient not taking: Reported on 11/05/2022) voriconazole (VFEND) 200 mg tablet Take 1 tablet by mouth twice daily. (Patient not taking: Reported on 11/05/2022) chlorhexidine gluconate 0.2 mg/ml in NS ophthalmic drops Use in the right eye every hour. (Patient not taking: Reported on 11/05/2022) TETRAHYDROZOLINE HCL (EYE DROPS OPHTHALMIC) Use in eyes. voriconizole 1% q hour OD (Patient not taking: Reported on 11/05/2022) traMADol (ULTRAM) 50 mg tablet Take 50 mg by mouth every 6 hours as needed. (Patient not taking: Reported on 11/05/2022) amLODIPine (NORVASC) 10 mg tablet Take 10 mg by mouth once daily. (Patient not taking: Reported on 11/05/2022) carvedilol (COREG) 25 mg tablet Take 25 mg by mouth twice daily with meals. (Patient not taking: Reported on 11/05/2022) lansoprazole (PREVACID) 30 mg capsule Take 30 mg by mouth once daily. (Patient not taking: Reported on 11/05/2022) FLUoxetine (PROZAC) 20 mg capsule Take 20 mg by mouth once daily. (Patient not taking: Reported on 11/05/2022) amitriptyline (ELAVIL) 50 mg tablet Take 50 mg by mouth daily at bedtime. (Patient not taking: Reported on 11/05/2022) HYDROCHLOROTHIAZIDE ORAL Take by mouth. (Patient not taking: Reported on (more content not included)...[id number] of Present illness Narrative* Edd Mathew MD - 11/05/2022 2:20 PM EDT SPINE SURGERY NEW PATIENT This is an in-person visit. PCP: Derick Isabel MD REFERRING PROVIDER: Jason Kiser SUBJECTIVE HISTORY OF PRESENT ILLNESS: Sukhdeep Simental is a 57 year old male. Complains of lower back pain radiating to bilateral hips and down both thighs. Right leg pain > Left leg pain. Mild walking difficulty. The pain averages around 8/10. It is affecting the patient daily activities. The pain is worse with activities and partially relieved with rest. It has been debilitating to the patient. He denies any weakness, bowel or bladder incontinence. He is also complaining of acute numbness and tingling in toes of bilateral feet. He tried Percocet and Tramadol for pain relief. He received spinal injections which gave him minimal pain relief. He underwent an L4-S1 fusion in the past. CHIEF COMPLAINT: Lower back and bilateral leg pain PRECIPITATING EVENT: None DURATION OF SYMPTOMS: Greater Than 1 Year PAIN EVALUATION 11/05/2022 1401 Pain Level: 8 Pain Location: Back-Lower Description: Sharp;Burning;Aching Frequency: Continuous Pain Radiation: low back to bilateral hips and thighs Aggravating Factors: Constant Alleviating Factors: Medications Pain Ratio: Pain in the back is greater than in the leg DERMATOMAL DISTRIBUTION: Not applicable AMBULATORY STATUS: Impaired Community Distances ANTIPLATELET OR ANTICOAGULATION STATUS: No PREVIOUS CONSERVATIVE TREATMENTS: Percocet Tramadol Injections PREVIOUS SPINAL SURGERY: SURGERY #1: L4-S1 fusion ACTIVE PROBLEM LIST Herpes Simplex Iridocyclitis Corneal Edema, Unspecified PAST MEDICAL HISTORY Diagnosis Date Central corneal ulcer Herpes simplex iridocyclitis Hypertension PAST SURGICAL HISTORY Procedure Laterality Date PAST SURGICAL HISTORY OF knee replacment right PAST SURGICAL HISTORY OF kidney stones removed FAMILY HISTORY Problem Relation Age of Onset Cancer Father Diabetes Mother Detached Retina Maternal Uncle Hypertension Maternal Uncle Social History Tobacco Use Smoking status: Never Smokeless tobacco: Never Substance Use Topics Alcohol use: No Drug use: No ALLERGIES No Known Allergies MEDICATIONS: doxazosin (CARDURA) 4 mg tablet Take 4 mg by mouth. irbesartan (AVAPRO) 300 mg tablet 1/2 tablet Orally Once a day for 60 days pioglitazone (ACTOS) 30 mg tablet bumetanide (BUMEX) 1 mg tablet Take 1 tablet by mouth once daily. tamsulosin (FLOMAX) 0.4 mg Take 1 capsule by mouth once daily. tizanidine HCl (ZANAFLEX ORAL) traZODone (DESYREL) 150 mg tablet simvastatin (ZOCOR) 10 mg tablet Take 1 tablet by mouth once daily. testosterone cypionate (DEPO-TESTOSTERONE) 100 mg/mL injection INJECT 1.5 ML INTO THE MUSCLE EVERY 2 WEEKS DIRECTED CETIRIZINE HCL (ZYRTEC ORAL) Take by mouth. Prn [START ON 12/02/2022] mupirocin (BACTROBAN) 2 % ointment Apply 1/2 ointment with a cotton swab in each nostril 2x daily for five days preop valACYclovir (VALTREX) 500 mg tablet Take 1 tablet by mouth once daily. (Patient not taking: Reported on 11/05/2022) prednisoLONE acetate (PRED FORTE, ECONOPRED PLUS) 1 % ophthalmic suspension Use 1 Drop in the righteye once daily. (Patient not taking: Reported on 11/05/2022) buprenorphine (BUTRANS) 10 mcg/hour Apply 1 Patch as directed once each week. (Patient not taking: Reported on 11/05/2022) Brimonidine-Timolol (COMBIGAN) 0.2-0.5 % drop Use 1 Drop in the right eye twice daily. (Patient nottaking: Reported on 11/05/2022) voriconazole (VFEND) 1% Ophth Drops ([facility]F) Use 1 Drop in the right eye every 2 hours. (Patient not taking: Reported on 11/05/2022) voriconazole (VFEND) 200 mg tablet Take 1 tablet by mouth twice daily. (Patient not taking: Reported on 11/05/2022) chlorhexidine gluconate 0.2 mg/ml in NS ophthalmic drops Use in the right eye every hour. (Patient not taking: Reported on 11/05/2022) TETRAHYDROZOLINE HCL (EYE DROPS OPHTHALMIC) Use in eyes. voriconizole 1% q hour OD (Patient not taking: Reported on 11/05/2022) traMADol (ULTRAM) 50 mg tablet Take 50 mg by mouth every 6 hours as needed. (Patient not taking: Reported on 11/05/2022) amLODIPine (NORVASC) 10 mg tablet Take 10 mg by mouth once daily. (Patient not taking: Reported on 11/05/2022) carvedilol (COREG) 25 mg tablet Take 25 mg by mouth twice daily with meals. (Patient not taking: Reported on 11/05/2022) lansoprazole (PREVACID) 30 mg capsule Take 30 mg by mouth once daily. (Patient not taking: Reportedon 11/05/2022) FLUoxetine (PROZAC) 20 mg capsule Take 20 mg by mouth once daily. (Patient not taking: Reported on 11/05/2022) amitriptyline (ELAVIL) 50 mg tablet Take 50 mg by mouth daily at bedtime. (Patient not taking: Reported on 11/05/2022) HYDROCHLOROTHIAZIDE ORAL Take by mouth. (Patient not taking: Reported on 11/05/2022) LORazepam (ATIVAN) 0.5 mg tab Take by mouth three times daily as needed. (Patient not taking: Reported on 11/05/2022) LEVOFLOXACIN ORAL Take by mouth. lavaza (Patient not taking: Reported on 11/05/2022) Besifloxacin (BESIVANCE) 0.6 % drps Use 1 Drop in both eyes as directed. (Patient not taking: Reported on 11/05/2022) cyclopentolate (CYCLOGYL) 0.5 % ophthalmic solution Use 1 Drop in both eyes as directed. (Patient not taking: Reported on 11/05/2022) VANCOMYCIN HCL (VANCOMYCIN 50 MG/ML) Use 1 Drop in the right eye as directed. (Patient not taking: Reported on 11/05/2022) tobramycin (TOBREX) 0.3 % ophthalmic solution Use 1 Drop in the right eye as directed. (Patient nottaking: Reported on 11/05/2022) erythromycin ophthalmic ointment Use 1 application in the right eye daily at bedtime. (Patient not taking: Reported on 11/05/2022) cephALEXin (KEFLEX) 500 mg capsule Take 500 mg by mouth twice daily. (Patient not taking: Reported on 11/05/2022) oxyCODONE-acetaminophen (PERCOCET) 5-325 mg tablet Take 1 tablet by mouth every 4 hours as needed. (Patient not taking: Reported on 11/05/2022) oxyCODONE-acetaminophen (PERCOCET) 5-325 mg tablet Take 1 tablet by mouth every 4 hours as needed. (Patient not taking: Reported on 11/05/2022) REVIEW OF SYSTEMS: PAIN ASSESSMENT: See HPI. GENERAL: Denies fever, chills malaise and weight loss. HEENT: No recent change in vision or hearing. CARDIOVASCULAR: Denies chest pain, history of A-fib, valvular disease, or pacemaker/ICD. RESPIRATORY: Denies SOB, sputum production, and hemoptysis. GI: Denies GI ulcers, inflammatory disease, or liver disease. : Denies change in frequency or urgency, kidney disease, and burning with urination. MUSCULOSKELETAL: Low back pain radiates to bilateral hips and buttocks. Right leg pain > Left leg pain. SKIN: Denies rash or itching. PSYCHOLOGICAL: Denies uncontrolled depression or anxiety. NEURO: Acute numbness and tingling in toes of bilateral feet. ENDOCRINE: Denies diabetes, thyroid disease. HEMATOLOGY/LYMPHOLOGY: Denies cancer, bleeding or clotting disorders, anemia,and DVT's. ALLERGIC/IMMUNOLOGICAL: Denies risks for infection, or recent MRSA infections. Patient Entered Questionnaires PROMIS Score Percentiles Percentiles provide an indication of how the patient's score ranks in relation to the general population. Higher percentile rankings indicate better function/quality of life. 50th percentile is the average of the general population and indicates half of respondents had a worse score. Depression Screening: PHQ-9 Self-Harm (Item 9) response options: 0 Not at all 1 Several days 2 More than half the days 3 Nearly every day PHQ-9 Levels: 0-4 No to mild depression 5-9 Mild depression 10-14 Moderate depression 15-19 Moderately severe depression 20-27 Severe depression OBJECTIVE: PHYSICAL EXAM BP 156/84 Pulse 66 Ht 175.3 cm (5' 9 ) Wt 124 kg (273 lb 4.8 oz) SpO2 100% BMI 40.36 kg/m Oriented x3 PERRL FS Motor: UE D 5/5, B 5/5, T 5/5, G 5/5, HI 5/5 LE HF 5/5, KE 5/5, DF 5/5, PF 5/5, EHL 5/5 Incision C/D/I Gait is normal Hip exam is normal NEURO TESTS: None DATA REVIEW CT myelogram and XR lumbar spine shows adjacent segment degeneration with spondylolisthesis at L2/3and L3/4 causing severe lateral recess and foraminal stenosis. ASSESSMENT/PLAN (M51.36, M43.16) Lumbar adjacent segment disease with spondylolisthesis (primary encounter diagnosis) Patient with symptoms over several months. Conservative management offering only mild relieve. It has been debilitating to the patient 1. We will proceed with L2-S1 revision fusion, L2-3, 3-4 TLIF. I discussed with the patient the risks and benefits and he would like to proceed. 2. Referral to pain psychology 2. Follow up: for preoperative evaluation SIGNATURE: Edd Mathew MD PATIENT NAME: Sukhdeep Simental DATE: November 05, 2022 TIME: 2:20 PM PAGER: documented in [facility] NoteChief Complaint consultation for diarrhea HPI Staff 57 year old male presents on consultation from Dr. Isabel for diarrhea. Stool studies completed 09/10- negative. Reports approximate one year history of daily loose to liquid stool. Has been taking Imodium with relief for 3-4 days then stools returns to loose. Gastric sleeve completed 04/2021. Last colonoscopy completed 11/2017- normal. Denies abdominal or rectal pain, No rectal bleeding, nausea or vomiting. History of Present Illness 57 yo male with h/o htn, hyperlipidemia, ELIDA, lumbar disc disease, neurogenic claudication, referred for loose stools; patient had gastric sleeve resection 04/2021, and reports shortly after that surgery, he developed looser stools, only has bm once per day, soft and loose, not eating much fiber, mostly low residue foods and shakes; no N/V; no abd pain, no blood in stools, patient thought he was due for screening colonoscopy, but we found an operative report from 11/2017, which was a normal colonoscopy by Dr Orozco; no other abd operations; no asa or NSAID use; no tobacco use. no fmhx of GI malignancy or IBD. Review of Systems PHQ Score Initial Depression Screen Score: 0 ROS - Provider Constitutional: no fever, no sweats, no weight loss. Eyes: no glasses, no blurred vision, no visual loss. ENMT: no dentures, no hoarseness, no swallowing difficulties, no hearing loss, no ear infection(s),no nose bleeds. Cardiovascular: normal blood pressure, no chest pain, regular heartbeat, no heart murmur. Respiratory: no shortness of breath, no cough, no asthma, no wheezing. Gastrointestinal: no nausea, no vomiting, no diarrhea, no constipation, no blood in stool, no change in bowel habits, no abdominal pain, no hepatitis. Genitourinary: no kidney stones, no urine infection, no dysuria. Musculoskeletal: no pain, no weakness. Skin: no changing moles, no rash, no skin lumps. Neurologic: no seizures, no epilepsy, no headache. Psychiatric: no emotional or psychiatric problem. Heme/Lymph: no bleeding problems, no anemia, no blood clots, no transfusions. Allergy/Immunologic: no swollen lymph nodes/glands, no IV drug abuse. Other: Additional ROS info: Except as noted in the above Review of Systems and in the History of Present Illness, all other systems have been reviewed and are negative or noncontributory. Physical Exam Vitals & Measurements HR: 70(Peripheral) RR: 16 BP: 118/84 HT: 69 in HT: 175 cm WT: 124 kg WT: 272.8 lb BMI: 40.49 HEENT: normal conjunctiva, sclera clear, no scleral icterus, EOM intact, PERRLA, oral mucosa moist without lesions. Neck: trachea midline, no mass, symmetric, no thyromegaly or nodules, no adenopathy Respiratory: lungs CTA, respirations non labored. Cardiovascular: regular rate and rhythm, no murmur, no pedal edema or varicosities. Gastrointestinal: obese, soft, non distended, no tenderness, no masses, small reducible umbilical hernia, diastasis recti yes, no hepatosplenomegaly; normal bs Lymphatic: no cervical adenopathy, no supraclavicular adenopathy. Musculoskeletal: normal gait, digits and nails without infection, nodes, cyanosis, clubbing. Skin: no rashes, no lesions, no ulcers, no subcutaneous nodules, induration. Psychiatric/Neuro: oriented to time, place, person, judgement normal, affect appropriate for age, insight intact, no focal deficits. Tests: review of old records completed, Discussed surgical options, risks, and possible complications with patient. Assessment/Plan 1. Change in bowel habits (R19.4: Change in bowel habit) no diarrhea; likely related to gastric sleeve resection and major diet changes; recommend increasedfiber, fruits and vegetables; not due for screening colonoscopy for 5 years, will place in recall; call sooner if problems/questions. 2. BMI 40.0-44.9, adult (Z68.41: Body mass index [BMI] 40.0-44.9, adult) recommend diet and exercise. Follow-up No qualifying data available Problem List/Past Medical History Ongoing Acute diarrhea Benign essential tremor BMI 40.0-44.9, adult Bowel habit changes Change in bowel habits Degeneration of lumbar intervertebral disc Gross hematuria Kidney stone Male hypogonadism Morbid obesity Neurogenic claudication Renal mass Retained ureteral stent Saddle embolus of pulmonary artery Sleep apnea Spinal stenosis of lumbosacral region Historical Chronic kidney disease stage 4 Procedure/Surgical History Cystoscopic removal of ureteric stent (07/13/2021), ESWL of kidney (07/13/2021), Cystoscopic insertion of ureteric stent (06/29/2021), Gastric sleeve (04/2021), Cystoscopy (03/28/2020), ESWL (extracorporeal shockwave lithotripsy) of ureteric calculus (02/24/2020), Colonoscopy (12/18/2017), cysto rtretrograde rt ureteroscopy rt holmium laser lithotripsy rt j stent with string (05/25/2016), Ankle joint operations, Bilateral replacement of knee joints, Cystoscopy, Lumbar spinal fusion, Meniscectomy. Medications acetaminophen-oxyco (more content not included)...[facility] Comment on above:Result Comment: Electronically Signed By: TAVIA JACOBS, Cj Sneed\\Date and Time Signed: 10/17/22 21:18 [id number] NoteHNO ID: [id number] Author: Sonya Wilhelm APRN.[employer] Service: ? Author Type: Nurse Practitioner Type: Progress Notes Filed: 10/16/2022 4:03 PM Note Text: Per Triage: Sukhdeep Simental is a 57 year old male that requests evaluation of lumbar spine. Per review, they have symptoms of LBP Hip pain Leg pain (R) Numbness, Tingling Toes Trouble lifting leg (R) Prev surgery yes L4-S1 fusion in [facility] CMT: Injection Muscle relaxants, Zanaflex Studies (Reports unless indicated) CT lumbar report only Mild levoconvex lumbar scoliosis with evidence of prior L4-L5 as well as L3 laminectomy with posterior spinal hardware fusion and transpedicular screws at L4-S1. Vacuum disc phenomenon and severe disc space narrowing at L5-S1 level and severe disc space narrowing at L4-L5. There is significant vacuum disc phenomenon and narrowing of the endplate sclerosis and Schmorl's nodes seen at L2-3 with vacuum disc phenomenon seen at L3-4 but without disc space narrowing. L3-L4 shows significant right foraminal narrowing with moderate to severe acquired canal stenosis seen. Disposition: Please schedule with first available lumbar revision surgeon. [facility]08-22-2023 History of Present illness Narrative* Sonya Wilhelm APRN.[employer] - 10/16/2022 3:51 PM EDT Per Triage: Sukhdeep Simental is a 57 year old male that requests evaluation of lumbar spine. Per review, they have symptoms of LBP Hip pain Leg pain (R) Numbness, Tingling Toes Trouble lifting leg (R) Prev surgery yes L4-S1 fusion in [facility] CMT: Injection Muscle relaxants, Zanaflex Studies (Reports unless indicated) CT lumbar report only Mild levoconvex lumbar scoliosis with evidence of prior L4-L5 as well as L3 laminectomy with posterior spinal hardware fusion and transpedicular screws at L4-S1. Vacuum disc phenomenon and severe disc space narrowing at L5-S1 level and severe disc space narrowing at L4-L5. There is significant vacuum disc phenomenon and narrowing of the endplate sclerosis and Schmorl's nodes seen at L2-3 with vacuum disc phenomenon seen at L3-4 but without disc space narrowing. L3-L4 shows significant right foraminal narrowing with moderate to severe acquired canal stenosis seen. Disposition: Please schedule with first available lumbar revision surgeon. * Adonis Lopez P - 09/20/2022 1:17 PM EDT Patient name: Sukhdeep Simental Are you being referred by a [facility] or Pain Management Provider at [facility]? No If answer is YES please schedule directly with surgeon, triage does not need to be completed. Is this a self-referral Yes If not, who is the Referring Provider Is this a 2nd opinion? No Were you offered surgery? No MRI/CT/myelogram within 12 months? Yes If NO , please refer to medical spine or PCP to complete above imaging, triage does not need to be completed If YES, please ask for the name/address of the facility where the MRI/CT/myelogram was completed: [facility] Address: [address] [place] [address] MRI/CT/myelogram viewable in Epic: No If not, please provide [phone] to fax in imaging reports for review. Also, please inform patient to hand carry imaging disc to appointment. XR (spine) within 12 months: Yes If YES, please ask for the name/address of the facility where the XR was completed: Same Dr. Butcher[facility] patients: Have you had previous EMG/Nerve Conduction Study, Ultrasound, or MRI for thesesame symptoms? If YES, please ask for the name/address of the facility where they were completed: Requested provider (First and Last name): [facility] Are you interested in a virtual visit if offered? No 1. Where are you having symptoms related to this visit? LBP Hip pain Leg pain (R) Numbness, Tingling Toes Trouble lifting leg (R) Back pain Yes Leg pain Yes Arm pain No Neck pain No 2. Are you having any of the following symptoms: Difficulty walking Yes Numbness Yes Weakness Yes Trouble using your hands? No 3. Have you had any injections or physical therapy in the last 12 months? Yes If YES then please ask for the name/address of the facility where the injections and/or physical therapy was completed Injection [facility] Address: [address] [place] [address] Have you tried any other kinds of non-surgical treatments in the last 12 months? (For example: NSAIDS, muscle relaxants, analgesics, oral steroids, Chiropractor, Acupuncture): Muscle relaxants, 4. Are you currently taking daily prescribed narcotic medications for your current symptoms (For example Oxycodone, Hydrocodone, Tramadol, Morphine, Other)? No 5. Have you had previous spinal surgery for this same symptoms? Yes If YES please ask for the name of facility/address of where the surgery was completed: [facility] Address: [address], [place] [address] Additional Comments [phone] (Home Phone) [facility] NoteHNO ID: [id number] Author: Adonis Lopez Service: ? Author Type: ? Type: Progress Notes Filed: 10/16/2022 4:03 PM Note Text: Patient name: Sukhdeep Simental Are you being referred by a [place] [facility] Provider or Pain Management Provider at [facility]? No If answer is YES please schedule directly with surgeon, triage does not need to be completed. Is this a self-referral Yes If not, who is the Referring Provider Is this a 2nd opinion? No Were you offered surgery? No MRI/CT/myelogram within 12 months? Yes If NO , please refer to medical spine or PCP to complete above imaging, triage does not need to be completed If YES,? please ask for the name/address of the facility where the MRI/CT/myelogram was completed: [facility] Address: [address] [place] [address] MRI/CT/myelogram viewable in Epic: No If not, please provide [phone] to fax in imaging reports for review. Also, please inform patient to hand carry imaging disc to appointment. XR (spine) within 12 months: Yes If YES,? please ask for the name/address of the facility where the XR was completed: Same Dr. Butcher's patients: Have you had previous EMG/Nerve Conduction Study, Ultrasound, or MRI for these same symptoms? If YES,? please ask for the name/address of the facility where they were completed: Requested provider (First and Last name): [facility] Are you interested in a virtual visit if offered? No 1. Where are you having symptoms related to this visit? LBP Hip pain Leg pain (R) Numbness, Tingling Toes Trouble lifting leg (R) Back pain Yes Leg pain Yes Arm pain No Neck pain No 2. Are you having any of the following symptoms: Difficulty walking Yes Numbness Yes Weakness Yes Trouble using your hands? No 3. Have you had any injections or physical therapy in the last 12 months? Yes If YES then please ask for the name/address of the facility where the injections and/or physical therapy was completed Injection [facility] Address: [address] [place] [address] Have you tried any other kinds of non-surgical treatments in the last 12 months? (For example: NSAIDS, muscle relaxants, analgesics, oral steroids, Chiropractor, Acupuncture): Muscle relaxants, 4. Are you currently taking daily prescribed narcotic medications for your current symptoms (For example Oxycodone, Hydrocodone, Tramadol, Morphine, Other)? No 5. Have you had previous spinal surgery for this same symptoms? Yes If YES? please ask for the name of facility/address of where the surgery was completed: [facility] Address: [address] [place] [id number] Additional Comments [phone] (Home Phone)[facility]06-21-2023 NoteChief Complaint: lbp and radicular pain right lower extremity HPI When did this problem begin: Long time Timing/frequency of occurrence: Constant Pain description: dull ache to sharp pain Pain severity: 9 Radicular pain: right lower extremity Numbness/tingling: Yes Pain is getting: gradually worsening Weakness: Yes What improves symptoms: Rest What makes symptoms worse: Activity Gait disturbance: Yes Fine hand dexterity problem: No Previous surgeries for this problem: L4-S1 fusion Dr. Hilton [place], [place] ROS Constitutional: Fatigue: No Weight loss: No Fever: No Chills: No Past Surgical History: Procedure Laterality Date ANKLE SURGERY Left JOINT REPLACEMENT Bilateral KIDNEY STONE SURGERY MULTIPLE LUMBAR FUSION STOMACH SURGERY N/A GASTRIC SLEEVE Past Medical History: Diagnosis Date Allergic rhinitis Anemia Anxiety BPH (benign prostatic hyperplasia) CKD (chronic kidney disease) 3 Diabetes ([facility]) GERD (gastroesophageal reflux disease) Hyperlipidemia Hyperparathyroidism (CMS/HCC) Hypertension Kidney stones Lumbar pain OA (osteoarthritis) Obesity Obstetric pulmonary blood clot embolism, antepartum Sleep apnea Past Surgical History: Procedure Laterality Date ANKLE SURGERY Left JOINT REPLACEMENT Bilateral KIDNEY STONE SURGERY MULTIPLE LUMBAR FUSION STOMACH SURGERY N/A GASTRIC SLEEVE No Known Allergies Current Outpatient Medications: bumetanide (Bumex) 1 mg tablet, Take 1 tablet by mouth in the morning., Disp: , Rfl: doxazosin (Cardura) 4 mg tablet, Take 4 mg by mouth in the morning., Disp: , Rfl: doxycycline (Vibramycin) 100 mg capsule, Take 100 mg by mouth in the morning and at bedtime. Take with at least 8 ounces (large glass) of water, do not lie down for 30 minutes after, Disp: , Rfl: famotidine (Pepcid) 20 mg tablet, in the morning., Disp: , Rfl: ferrous sulfate 325 (65 Fe) MG tablet, Take 1 tablet by mouth in the morning and 1 tablet in the evening., Disp: , Rfl: irbesartan (Avapro) 300 mg tablet, Take 1 tablet by mouth in the morning., Disp: , Rfl: ketoconazole (NIZOral) 2 % cream, 1 application. every 12 (twelve) hours., Disp: , Rfl: LORazepam (Ativan) 1 mg tablet, Take 1 mg by mouth every 6 (six) hours if needed for anxiety., Disp: , Rfl: metoclopramide (Reglan) 10 mg tablet, Take 10 mg by mouth if needed., Disp: , Rfl: omeprazole (PriLOSEC) [address] capsule, Take 20 mg by mouth in the morning and at bedtime., Disp: , Rfl: pantoprazole (ProtoNix) 40 mg EC tablet, Take 40 mg by mouth before breakfast., Disp: , Rfl: pioglitazone (Actos) 15 mg tablet, Take 30 mg by mouth in the morning., Disp: , Rfl: simvastatin (Zocor) 10 mg tablet, Take 10 mg by mouth at bedtime., Disp: , Rfl: sucralfate (Carafate) 1 gram tablet, Take 1 g by mouth in the morning, at noon, in the evening, and at bedtime., Disp: , Rfl: tamsulosin (Flomax) 0.4 mg 24 hr capsule, Take 0.4 mg by mouth in the morning., Disp: , Rfl: testosterone cypionate (Depo-Testosterone) 200 mg/mL injection, testosterone cypionate 200 mg/mL intramuscular oil administer 3/4 mL INTRAMUSCULARLY EVERY 2 (TWO) weeks, Disp: , Rfl: tizanidine HCl (ZANAFLEX ORAL), Take 4 mg by mouth at bedtime., Disp: , Rfl: traZODone (Desyrel) 150 mg tablet, Take 150 mg by mouth at bedtime., Disp: , Rfl: Social History Socioeconomic History Marital status: Spouse name: Not on file Number of children: Not on file Years of education: Not on file Highest education level: Not on file Occupational History Not on file Tobacco Use Smoking status: Never Smokeless tobacco: Never Vaping Use Vaping Use: Never used Substance and Sexual Activity Alcohol use: Never Drug use: Never Sexual activity: Defer Other Topics Concern Not on file Social History Narrative Not on file Social Determinants of Health Financial Resource Strain: Low Risk Difficulty of Paying Living Expenses: Not hard at all Food Insecurity: No Food Insecurity Worried About Running Out of Food in the Last Year: Never true Ran Out of Food in the Last Year: Never true Transportation Needs: No Transportation Needs Lack of Transportation (Medical): No Lack of Transportation (Non-Medical): No Physical Activity: Inactive Days of Exercise per Week: 0 days Minutes of Exercise per Session: 20 min Stress: No Stress Concern Present Feeling of Stress : Not at all Social Connections: Moderately Isolated Frequency of Communication with Friends and Family: More than three times a week Frequency of Social Gatherings with Friends and Family: Once a week Attends Zoroastrian Services: Never Active Member of Clubs or Organizations: No Attends Club or Organization Meetings: Never Marital Status: Intimate Partner Violence: Not At Risk Fear of Current or Ex-Partner: No Emotionally Abused: No Physically Abused: No Sexually Abused: No Housing Stability: Low (more content not included)...[facility]06-16-2023 NotePatient stated that hes still waiting for a C9 to be put in for a surgery. We have the evaluation that he was originally supposed to be waiting on so hes not sure what the hold up is now.[facility]05-01-2023 Note This report has been cancelled.[facility]04-28-2023 NoteOrthopedic Surgery Subjective Chief complaint: Chief Complaint Patient presents with Right Knee - Follow-up 06/22/2022 Sukhdeep Simental is a 56 y.o. year old male presenting for evaluation of revision of the right knee arthroplasty along with quadriceps weakness and difficulty in walking for long distances without support. Patient has weakness in the bilateral lower extremities right side worse than left side and continues to have difficulty in having strong push of in the right foot. Continues to use a brace on the right knee joint due to the weakness in the leg and instability. Patient has not had any new falls. Patient is now almost 3 months following his right revision knee arthroplasty for aseptic loosening along with instability of the right knee joint and underwent complex revision including complete persona Biomet revision knee arthroplasty along with extensor mechanism reconstruction and augmentation for chronic insufficiency. Patient understands that he has limited options if this gets infected and/or fails in future. He has weakness in the lower extremity secondary to his adjacent level disc degenerative changes and lumbosacral difficulty that was evidenced on his CT scan of the lumbosacral spine. Patient continues to have paresthesia weakness in the both lower extremities right side seems to be worse than left side. Patient denies any bowel or bladder involvement or any saddle anesthesia at this point in time. He has some minor weakness in the foot and ankle region as well. He tends to use a walker to ambulate to prevent falls. He says he has tried a cane in the opposite hand but due to the weakness in the lower extremities and unable to get rid of his walker. He says he has been very afraid of losing power in both his lower extremities and ending in the wheelchair. He is s/p fusion of his L4-L5 and L5-S1 levels in the past. He is due to see for his lumbosacral spine today as well. He denies any change in his general health. Patient History Past Surgical History: Procedure Laterality Date ANKLE SURGERY Left JOINT REPLACEMENT Bilateral KIDNEY STONE SURGERY MULTIPLE LUMBAR FUSION STOMACH SURGERY N/A GASTRIC SLEEVE Past Medical History: Diagnosis Date Allergic rhinitis Anemia Anxiety BPH (benign prostatic hyperplasia) CKD (chronic kidney disease) 3 Diabetes ([facility]) GERD (gastroesophageal reflux disease) Hyperlipidemia Hyperparathyroidism ([facility]) Hypertension Kidney stones Lumbar pain OA (osteoarthritis) Obesity Obstetric pulmonary blood clot embolism, antepartum Sleep apnea Objective General: Body mass index is 38.4 kg/m???. No acute distress, comfortable Respiratory: Unlabored breathing with normal rate, no cough Cardiovascular: Warm well perfused extremities Psych: Appropriate mood behavior Right knee joint was examined in the lower extremity compared with the left side: Scar on the anterior aspect of the right knee joint has healed well no signs of any infection or inflammation seen. No major effusion noted. Patient has active contraction of the quads but power is about 3-4 out of 5 along with similar power in the left side. Patient also has hamstring power which is 3 out of 5. Weakness in the L3-L4 as well as L4-L5 level noted. Weakness in the foot noted both lower extremities with a EHL power of about 4 out of 5. DTR 1+. Patella tracks slightly laterally with no major physical instability noted. Ant and posterior drawer's test negative. Delphine's is negative. No calf swelling or tenderness noted, bilateral pitting edema noted right side worse than left side. Active extension is -10 degrees in the right knee joint and flexion to about 110- 120 degrees. Passive extension is full on the right side. Trophic changes noted in the luna on both the lower extremities. Imaging personally reviewed: X-rays of the right knee joint 3 views to 4 views that were done in the office was seen by myself and interpreted currently which were the patient has right revision knee arthroplasty which is well aligned well fixed without any major complicating process. He does have some mild lateral maltracking of the patella which is secondary to the none resurfacing secondary to bone loss as well as the previous extensor mechanism reconstruction. No evidence of any new fracture or dislocation seen. The details were explained to the patient and his family. Assessment/Plan Sukhdeep Simental is a 56 y.o. year old male with Status post revision of total knee replacement, right 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 Lumbosacral radiculopathy Quadriceps weakness Patient was explained that overall right knee looks good on the x-rays there is no evidence of any loosening or any fracture seen. Due to his previous scarring as well as previous weakness from his lumbosacral radiculopathy and failed back (more content not included)...[facility]04-28-2023 Note Chief Complaint: lbp and radicular pain right lower extremity HPI When did this problem begin: Long time Timing/frequency of occurrence: Constant Pain description: dull ache Pain severity: 9 Radicular pain: right lower extremity Numbness/tingling: Yes Pain is getting: gradually worsening Weakness: No What improves symptoms: Rest What makes symptoms worse: Activity Gait disturbance: No Fine hand dexterity problem: No Previous surgeries for this problem: L4-S1 fusion [facility] Constitutional: Fatigue: No Weight loss: No Fever: No Chills: No Past Surgical History: Procedure Laterality Date ANKLE SURGERY Left JOINT REPLACEMENT Bilateral KIDNEY STONE SURGERY MULTIPLE LUMBAR FUSION STOMACH SURGERY N/A GASTRIC SLEEVE Past Medical History: Diagnosis Date Allergic rhinitis Anemia Anxiety BPH (benign prostatic hyperplasia) CKD (chronic kidney disease) 3 Diabetes (CMS/HCC) GERD (gastroesophageal reflux disease) Hyperlipidemia Hyperparathyroidism (CMS/HCC) Hypertension Kidney stones Lumbar pain OA (osteoarthritis) Obesity Obstetric pulmonary blood clot embolism, antepartum Sleep apnea Past Surgical History: Procedure Laterality Date ANKLE SURGERY Left JOINT REPLACEMENT Bilateral KIDNEY STONE SURGERY MULTIPLE LUMBAR FUSION STOMACH SURGERY N/A GASTRIC SLEEVE No Known Allergies Current Outpatient Medications: bumetanide (Bumex) 1 mg tablet, Take 1 tablet by mouth in the morning., Disp: , Rfl: doxazosin (Cardura) 4 mg tablet, Take 4 mg by mouth in the morning., Disp: , Rfl: doxycycline (Vibramycin) 100 mg capsule, Take 100 mg by mouth in the morning and at bedtime. Take with at least 8 ounces (large glass) of water, do not lie down for 30 minutes after, Disp: , Rfl: famotidine (Pepcid) 20 mg tablet, in the morning., Disp: , Rfl: ferrous sulfate 325 (65 Fe) MG tablet, Take 1 tablet by mouth in the morning and 1 tablet in the evening., Disp: , Rfl: irbesartan (Avapro) 300 mg tablet, Take 1 tablet by mouth in the morning., Disp: , Rfl: ketoconazole (NIZOral) 2 % cream, 1 application. every 12 (twelve) hours., Disp: , Rfl: LORazepam (Ativan) 1 mg tablet, Take 1 mg by mouth every 6 (six) hours if needed for anxiety., Disp: , Rfl: metoclopramide (Reglan) 10 mg tablet, Take 10 mg by mouth if needed., Disp: , Rfl: omeprazole (PriLOSEC) [address] capsule, Take 20 mg by mouth in the morning and at bedtime., Disp: , Rfl: pantoprazole (ProtoNix) 40 mg EC tablet, Take 40 mg by mouth before breakfast., Disp: , Rfl: pioglitazone (Actos) 15 mg tablet, Take 30 mg by mouth in the morning., Disp: , Rfl: simvastatin (Zocor) 10 mg tablet, Take 10 mg by mouth at bedtime., Disp: , Rfl: sucralfate (Carafate) 1 gram tablet, Take 1 g by mouth in the morning, at noon, in the evening, and at bedtime., Disp: , Rfl: tamsulosin (Flomax) 0.4 mg 24 hr capsule, Take 0.4 mg by mouth in the morning., Disp: , Rfl: testosterone cypionate (Depo-Testosterone) 200 mg/mL injection, testosterone cypionate 200 mg/mL intramuscular oil administer 3/4 mL INTRAMUSCULARLY EVERY 2 (TWO) weeks, Disp: , Rfl: tizanidine HCl (ZANAFLEX ORAL), Take 4 mg by mouth at bedtime., Disp: , Rfl: traZODone (Desyrel) 150 mg tablet, Take 150 mg by mouth at bedtime., Disp: , Rfl: Social History Socioeconomic History Marital status: Spouse name: Not on file Number of children: Not on file Years of education: Not on file Highest education level: Not on file Occupational History Not on file Tobacco Use Smoking status: Never Smokeless tobacco: Never Vaping Use Vaping Use: Never used Substance and Sexual Activity Alcohol use: Never Drug use: Never Sexual activity: Defer Other Topics Concern Not on file Social History Narrative Not on file Social Determinants of Health Financial Resource Strain: Low Risk Difficulty of Paying Living Expenses: Not hard at all Food Insecurity: No Food Insecurity Worried About Running Out of Food in the Last Year: Never true Ran Out of Food in the Last Year: Never true Transportation Needs: No Transportation Needs Lack of Transportation (Medical): No Lack of Transportation (Non-Medical): No Physical Activity: Inactive Days of Exercise per Week: 0 days Minutes of Exercise per Session: 20 min Stress: No Stress Concern Present Feeling of Stress : Not at all Social Connections: Moderately Isolated Frequency of Communication with Friends and Family: More than three times a week Frequency of Social Gatherings with Friends and Family: Once a week Attends Zoroastrian Services: Never Active Member of Clubs or Organizations: No Attends Club or Organization Meetings: Never Marital Status: Intimate Partner Violence: Not At Risk Fear of Current or Ex-Partner: No Emotionally Abused: No Physically Abused: No Sexually Abused: No Housing Stability: Low Risk Unable t (more content not included)...[facility] 06-21-2022 Evaluation note* Encounter Date Diagnosis Assessment Notes Treatment Notes Treatment Clinical Notes May, 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 He currently takes irbesartan for renal protection. I will continue that. I discussed with him that he may benefit with the SGLT2 inhibitor due to his including Farxiga, Jardiance or Invokana. He reported that he was on Farxiga before but was not able to afford it due to the high cost. I also explained to him due to the hyperkalemia in the past with the spironolactone I will avoid to prescribe him Kerendia. May, Chronic kidney disea se, stage III (moderate) (ICD-10 - N18.30) He has a CKD likely due to the longstanding DM and HTN. His baseline serum creatinine is 1.4- 1.6 mg/dL. His renal function fluctuates based on his hemodynamic and diuretic use. His renal ultrasound showed a right-sided nephrolithiasis and benign cysts with no evidence of obstructive uropathy or kidney mass. I discussed with him importance of good DM and HTN control to slow down the progression of CKD. May, Ashvin hy kid w cr kid I-IV (ICD-10 - I12.9) Blood pressure is controlled. He appears to be euvolemic. Continue current medication irbesartan and Bumex. May, Secondary hyperparathyroidism (ICD-10 - N25.81) MBD parameters including calcium, phosphorus, PTH and vitamin D are within the goal. May, Anemia of renal dise ase (ICD-10 - D63.1) Hemoglobin is within the goal but has adequate iron stores. He has a mildly elevated free light chain ratio likely due to the CKD but unremarkable SPEP, serum and urine immunofixation May, Microscopic hematuri a (ICD-10 - R31.29) He has intermittent microscopic hematuria likely due to the nephrolithiasis. May, Nephrolithiasis (ICD -10 - N20.0) He denies any recent passage of kidney stones. Continue follow-up with urology. May, Hyperuricemia (ICD-1 0 - E79.0) He has hyperuricemia due to the CKD but denies any recent gout flare. We will continue to monitor without any medications. [employer] [facility] Other 02-22-2023 Note Attestation signed by Jason Kiser MD at 04/19/2022 8:57 AM I personally saw and examined the patient on the same date of service as resident/fellow paul goldberg. I discussed the findings and therapeutic plan with the resident/fellow paul goldberg. I agree with the documentation, except for any edits/updates below. Teaching Physician's Revisions: jason kiser Orthopaedic Surgery Subjective 04/18/22 Pain persists R side and low back. Had R TKA 3 weeks ago. Seen pain management and discussed spine stimulator and failed other modalities. 12/20/21 Sukhdeep Simental is a 56 y.o. year old male [facility] patient returns to clinic today for follow-up of low back pain and right lower extremity radicular symptoms. Patient does have history of previous L4 S1 laminectomy and fusion. He reports since his last visit he underwent a series of epidural injections with pain management. He states the first of these injections helped for several hours, but the remaining 2 injections did not provide him any relief. He has not had any relief from therapy in the past. He continues to report significant pain radiating from his right lower back, down his buttock and down his leg. He reports he continues to need a walker for ambulation reports difficulty with movement of his right leg. Does also report numbness and tingling distally. 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 available given his need for walker for ambulation When did this problem begin: Long time Timing/frequency of occurrence: Constant Pain description: dull ache Pain severity: 8 Radicular pain: Yes, right lower extremity Numbness/tingling: Yes Pain is getting: gradually worsening Weakness: Yes What improves symptoms: Rest What makes symptoms worse: Activity Gait disturbance: No Fine hand dexterity problem: No Previous surgeries for this problem: Yes, L4-S1 laminectomy and fusion Patient History Past Surgical History: Procedure Laterality Date ANKLE SURGERY Left JOINT REPLACEMENT Bilateral KIDNEY STONE SURGERY MULTIPLE LUMBAR FUSION STOMACH SURGERY N/A GASTRIC SLEEVE Past Medical History: Diagnosis Date Allergic rhinitis Anemia Anxiety BPH (benign prostatic hyperplasia) CKD (chronic kidney disease) 3 Diabetes ([facility]) GERD (gastroesophageal reflux disease) Hyperlipidemia Hyperparathyroidism ([facility]) Hypertension Kidney stones Lumbar pain OA (osteoarthritis) Obesity Obstetric pulmonary blood clot embolism, antepartum Sleep apnea Objective General: There is no height or weight on file to calculate BMI. No acute distress, comfortable Respiratory: Unlabored breathing with normal rate, no cough Cardiovascular: Warm well perfused extremities Psych: Appropriate mood and behavior MSK: Using rolling walker for ambulation Neck/Back: Normal neck/cervical spine flexion and extension Normal alignment of cervical spine No kyphosis, scoliosis, or cervical paraspinal muscle tenderness Limited thoracolumbar flexion and lumbosacral extension Lumbar pain with flexion and extension Paraspinal tenderness. Upper Extremity: Bilateral finger flexor strength 5/5 Abduction strength 5/5 Biceps strength 5/5 Wrist strength 5/5 Triceps strength 5/5 Normal sensation to pinprick Lower Extremity: Positive straight leg raise bilaterally Lower extremity peripheral pulses Normal sensation to pinprick Flexion at the hip strength 5/5 on the left, 2/5 on the right Quadriceps strength 5/5 on the left, 3/5 on the right Tibialis anterior strength 5/5 Plantar flexion strength 5/5 Extensor hallicis longus strength 5/5 Neurologic Detailed Exam Tan reflex absent DTRs 2+ bilaterally throughout Gait and Station: normal gait Imaging: Prior x-rays and CT myelogram demonstrate L1-4 disc degeneration, degenerative lumbar scoliosis, prior L4-S1 Ectomy and fusion, and L2-3 and L3-4 disc degeneration and foraminal stenosis Assessment/Plan Sukhdeep Simental is a 56 y.o. year old male [facility] patient with history of L4-S1 laminectomy and fusion with L1-L4 disc degeneration, degenerative lumbar scoliosis, L2-3 and L3-4 disc degeneration and foraminal stenosis Discussed the nature of the disease as well as treatment options including conservative vs surgical interventions Conservative interventions including: pain management, PT Surgical interventions including: L2-L3, L3-L4 decompression and fusion -Discussed we cannot stop at L3-L4 due to sagittal plane deformity; approval for L2-L3 would be required -Patient will return to clinic after TKA rehabilitation -Patient will continue pain management -Activity as tolerated Paul Goldberg MD By using the attestations below, the signing (more content not included)... [facility]02-17-2023 NoteOrthopedic Surgery Subjective 03/28/2022 Revision, Total Arthroplasty, Knee, All Components - Right 04/13/22 Sukhdeep presents today for his first postoperative visit, doing well, no reinjury or drainage. Has been working with PT 3x per week. Taking lovenox for DVT ppx. Patient has been using a brace on his right knee joint and has been trying to get his extension of the knee joint. He has flexion of about 70 to 80 degrees. He has been working with physical therapy in [place]. Patient denies any fever, chills or rigors or breathlessness. His pain is well controlled he does have a request for Ultram as he continues to have occasional pain. Patient has lumbosacral degenerative arthritis lumbar for spinal fusion surgery and weakness in the bilateral lower extremities right side worse than left side. Patient History Past Surgical History: Procedure Laterality Date ANKLE SURGERY Left JOINT REPLACEMENT Bilateral KIDNEY STONE SURGERY MULTIPLE LUMBAR FUSION STOMACH SURGERY N/A GASTRIC SLEEVE Past Medical History: Diagnosis Date Allergic rhinitis Anemia Anxiety BPH (benign prostatic hyperplasia) CKD (chronic kidney disease) 3 Diabetes ([facility]) GERD (gastroesophageal reflux disease) Hyperlipidemia Hyperparathyroidism ([facility]) Hypertension Kidney stones Lumbar pain OA (osteoarthritis) Obesity Obstetric pulmonary blood clot embolism, antepartum Sleep apnea Revision total knee arthroplasty Objective Exam: Right knee joint examined: Surgical incision healthy, most evidence of any redness noted, no evidence of any inflammation or infection seen. No localized collection noted. Patient has active extension of -5 to 10 degrees, passive extension is full. Flexion possible to about 90 to 95 degrees. No calf swelling or tenderness noted, no signs of deep and thrombosis seen. - Incision clean, dry, and intact. No drainage or erythema - Reasonable post-surgical ROM, swelling, and tenderness - 5-100 degrees passively, unable to perform an SLR due to weakness - Sensation grossly intact distally - Brisk capillary refill Assessment/Plan History of revision total knee arthroplasty right side for periprosthetic joint infection. Sukhdeep Simental is a 56 y.o. year old male s/p Revision, Total Arthroplasty, Knee, All Components - Right (03/28/2022) - Continue WBAT, PT, work on knee extension, wean from brace - Tramadol script given for 7 days. This will be her last refill for him he will need to continue stepping down for his oral narcotic medications. He will avoid falls. He may use his walker to ambulate full weightbearing. Patient will follow-up to see me in about 3 months time or earlier if required. He says he does have some limitations on his insurance after June he goes on to Medicare and may not be able to follow-up to see me. Patient was advised to continue with remembering to take oral antibiotics prior to dental work or colonoscopy in future. All questions were answered today. Note for physical therapy was given to the patient. Continue with weight loss program and strengthening of the lower extremity. - RTC in 3 months with repeat x-rays of the right knee joint 3-4 views. Randy Haynes MD Orthopedic Surgery, PGY-5 04/13/22 4:22 PM By using the attestations below, the signing clinician agrees that I have read and verify that the documentation has been personally reviewed by me and ensure that the documentation accurately reflects the encounter. GC: I personally saw this patient on the day of the encounter, performed the alvarez portion(s) of the service and participated in the management and confirm the resident's documentation. Please note there may be an additional personal documentation from me. Dr. Payton Helm MD MRCSEd Thermodynamicist orthopedic surgery-[facility]. [facility]02[facility] however after running his benefits they found that pt would have to pay $2274 before even being covered for 80%. Discussed this with pt who stated he will just do outpatient therapy instead. Obtained a script/order from Ortho and provided to the pt.[facility]02-02-2023 NotePt known from previous admissions. Still lives at home with and dgtr. PT reporting pt could benefit from home PT. Spoke with pt who wanted to try for [facility] but they are out of network. Sent multiple new referrals out but noted pt has recent history with [facility] 03-29-2022 NoteInfectious Diseases - Inpatient daily Progress Note - Patient name: Sukhdeep Simental Patient Today's Date and Time: 03/29/2022, 12:43 PM Admission Date: 03/28/2022 Assessment/Plan Impression: Infected right knee prosthetic joint s/p explantation 2 doses of dalbavancin and then reimplantation on this admission. Recommendations: Even though he did not have growth on cultures it is recommended to treat any for 6 months to cover for his infection so he will be given doxycycline 100 mg oral every 12 hourly for 6 months he is advised to avoid any antacids and any [id number] Maalox or Pepto-Bismol if he does think that he should space it was at least 2 hours before taking doxycycline he is also advised on use and sunscreen especially in the summertime because of doxycycline induced phototoxicity. He will require scheduled ESR and CRP to be done every 2 months while he is on doxycycline. Please schedule him to follow-up in ID clinic within 3 months of discharge. Subjective Interval history: The patient is well-known to ID service he had a right knee prosthetic joint that was infected cultures were negative he was empirically started on IV vancomycin and ceftriaxone later he was discharged on 2 doses of dalbavancin which he received dalbavancin on January 03 and the second dose was in January 11.That he had the been asked since then he had the second stage at this admission and ID is consulted again to assess if he needs more antibiotics. He has no fever no chills and he is anxious to go home. He has a relevant past history of chronic kidney disease that is why nephrotoxic agents are avoided and he has history of gastric sleeve surgery but he said he had tolerated doxycycline before. Objective Physical Examination: BP 127/71 Pulse 68 Temp 36.6 ???C (97.8 ???F) (Oral) Resp 20 Ht 1.753 m (5' 9 ) Wt 135 kg (296 lb 8.3 oz) SpO2 96% BMI 43.79 kg/m??? Temperature Range: Temp: 36.6 ???C (97.8 ???F) Temp Av.8 ???C (98.2 ???F) Min: 36.6 ???C (97.8 ???F) Max: 37.1 ???C (98.7 ???F) General Appearance: Awake, alert, and in no apparent distress, nontoxic Right knee is incision is covered with clean dressing. He is awake alert oriented x3. No skin rash. No respiratory distress. No fluid overload. Laboratory data: I have independently reviewed the following labs: Results from last 7 days Lab Units 03/29/22 0545 WBC AUTO 10*3/uL 10.22 HEMOGLOBIN g/dL 11.9* HEMATOCRIT % 34.8* MCV fL 90.2 PLATELETS AUTO 10*3/uL 178 Results from last 7 days Lab Units 03/29/22 0545 POTASSIUM mmol/L 4.3 CHLORIDE mmol/L 106 CO2 mmol/L 25 BUN mg/dL 28* CREATININE mg/dL 1.41* GLUCOSE mg/dL 187* CALCIUM mg/dL 8.5* Results from last 7 days Lab Units 03/29/22 0545 CRP mg/L 10.3* No lab exists for component: COLOR, TURBIDITY, SPECIFICGRA, PHURINE, LEUKOCYTE, PROTEIN, BLOODHGB, RBCELLS, RENALEPITH No lab exists for component: TOXIGENICC Imaging Studies: have reviewed myself the following imaging studies performed in the past 3 days: Right knee prosthetic joint in place no evidence of soft tissue swelling and no evidence of fracture. Cultures: Results for orders placed or performed during the hospital encounter of 03/28/22 Body fluid culture Specimen: Knee; Synovial Fluid Result Value Ref Range Culture No growth at 18-24 hours Gram Stain Result Polymorphonuclear leukocytes (A) Gram Stain Result No organisms seen (A) Gram Stain Result Cytocentrifuge sample (A) Anaerobic culture Specimen: Knee; Synovial Fluid Result Value Ref Range Anaerobic Culture No anaerobes isolated at 18-24 hours Medications: acetaminophen, 1,000 mg, oral, q8h bumetanide, 1 mg, oral, Daily ceFAZolin, 2 g, intravenous, q8h docusate sodium, 100 mg, oral, BID doxazosin, 4 mg, oral, Daily enoxaparin, 40 mg, subcutaneous, Daily famotidine, 40 mg, oral, Daily losartan, 100 mg, oral, Daily Oxygen Therapy, , inhalation, Continuous pantoprazole, 40 mg, oral, Daily pioglitazone, 30 mg, oral, Daily tamsulosin, 0.4 mg, oral, Daily tiZANidine, 4 mg, oral, Nightly traZODone, 50 mg, oral, Nightly This progress note was completed using a voice rubber stamp maker system. Every effort was made to ensure accuracy; however, inadvertent computerized rubber stamp maker errors may be present. Thank you for allowing me to see the patient Please call for any questions or concerns, Sammi Venegas MD [place] Infectious diseases P:[phone] Note Attestation signed by Deidra Camarillo OT at 03/29/2022 12:02 PM This senior underwriter present and provided 1:1 supervision and direction of patient care. Jamie VERGARA/ANTONIO Mendoza Occupational Therapy Occupational Therapy Evaluation Patient Name: Sukhdeep Simental : 1965 Today's Date: 03/29/2022 Time in: 1012 Time out: 1042 Surgery type: Stage II R TKA Revision Surgery date: 03/28/2022 BRETT ok for pt to be seen at this time. Pt sitting upright in bed upon arrival and agreeable to session. Pt completed functional mobility, functional transfers, toileting with distant supervision, and grooming at with close supervision. Pt was left sitting upright in bed with call light and needs in reach. RN aware of pt performance. General Subjective: 56 yo M presents for stage II revision of R TKA on 03/28. Pt has a hx of multiple revisions and was immobilized since 12/2021. Pt states that he is experiencing high pain but was happy to get out of bed to move. Family/Caregiver Present: No Patient Active Problem List Diagnosis Chronic instability of right knee Loose right total knee arthroplasty (CMS/HCC) Quadriceps weakness Lumbosacral radiculopathy Encounter for pre-operative laboratory testing HTN (hypertension) Diabetes mellitus, type 2 (CMS/HCC) Gastroesophageal reflux disease Morbid obesity (CMS/HCC) ELIDA (obstructive sleep apnea) Anxiety Chronic kidney disease Infection of prosthetic knee joint (CMS/HCC) Acute renal failure (CMS/HCC) Chronic knee pain 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 Chronic low back pain Corneal edema, unspecified Degeneration of lumbosacral intervertebral disc Dyspnea and respiratory abnormality Edema Herpes simplex iridocyclitis History of kidney stones History of pulmonary embolism Other specified inflammatory spondylopathies, 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CMS/HCC) Pulmonary embolism with acute cor pulmonale (CMS/HCC) Recurrent pulmonary emboli (CMS/HCC) S/P laparoscopic sleeve gastrectomy Spinal stenosis, lumbar region, with neurogenic claudication Tachycardia 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 Past Medical History: Diagnosis Date Allergic rhinitis Anemia Anxiety BPH (benign prostatic hyperplasia) CKD (chronic kidney disease) 3 Diabetes (CMS/HCC) GERD (gastroesophageal reflux disease) Hyperlipidemia Hyperparathyroidism ([facility]/H[facility]) Hypertension Kidney stones Lumbar pain OA (osteoarthritis) Obesity Obstetric pulmonary blood clot embolism, antepartum Sleep apnea Past Surgical History: Procedure Laterality Date ANKLE SURGERY Left JOINT REPLACEMENT Bilateral KIDNEY STONE SURGERY MULTIPLE LUMBAR FUSION STOMACH SURGERY N/A GASTRIC SLEEVE Pain Pain Assessment Pain Assessment: 0-10 Pain Score: 9 Pain Interventions: Cold applied Home Living Home Living Type of Home: House Lives With: Spouse Home Adaptive Equipment: Walker rolling, Wheelchair-manual Home Layout: One level Home Access: Stairs to enter without rails, Ramped entrance Entrance Stairs-Number of Steps: 1 Bathroom Shower/Tub: Walk-in shower Bathroom Toilet: Standard Bathroom Equipment: Grab bars in shower, Shower chair with back, Raised toilet seat with rails, Hand-held shower Prior Level of Function Prior Function Level of [place]: Independent with ADLs and functional transfers, Needs assistance with homemaking (Receives help as needed for ADLs but is typically independent.) Receives Help From: Family (PRN) ADL Assistance: Independent Static Sitting Balance Static Sitting Balance Static Sitting-Balance Support: Right upper extremity supported, Left upper extremity supported, Feet supported Static Sitting-Level of Assistance: Close supervision Dynamic Sitting Balance Dynamic Sitting Balance Dynamic Sitting-Balance Support: Unilateral upper extremity supported, Feet supported Dynamic Sitting-Balance: Forward lean, Lateral lean Dynamic Sitting Balance-Level of Assistance: Close supervision Static Standing Balance Static Standing Balance Static Standing-Balance Support: Right upper extremity supported, Left upper extremity supported Static Standing-Level of Assistance: Close supervision Dynamic Standing Balance Dynamic Standing Balance Dynamic Standing-Balance Support: Unilateral upper extremity supported Dynamic Standing-Balance: Forward lean, Reaching for objects Dynamic Standing Balance-Level of Assistance: Contact guard Bed Mobility Bed Mobility Bed Mobility: Yes Bed Mobility 1 Bed Mobility From 1: Supine Bed Mobility Type 1: To and from Bed Mobility to 1: Short sit Level of Assistance 1: Close supervision Transfers Transfers Transfer: Yes Transfer 1 Transfer From 1: Bed, Sit (more content not included)...[facility]02-02-2023 NotePhysical Therapy Physical Therapy Evaluation Patient Name: Sukhdeep Simental : 1965 Today's Date: 03/29/2022 General Subjective: 56 y.o. male h/o R TKA, stage I revision 12/27/21. Admit 03/28/22 for R TKA stage II revision, repair of extensor mechanism, and reconstruction of bone loss. Pt supine upon arrival, agreeable to PT. Pt amb to bathroom, then out to arboleda. Returned to supine in bed at end of session. Call light given, cold pack in place. Patient Active Problem List Diagnosis Chronic instability of right knee Loose right total knee arthroplasty (CMS/HCC) Quadriceps weakness Lumbosacral radiculopathy Encounter for pre-operative laboratory testing HTN (hypertension) Diabetes mellitus, type 2 (CMS/HCC) Gastroesophageal reflux disease Morbid obesity (CMS/HCC) ELIDA (obstructive sleep apnea) Anxiety Chronic kidney disease Infection of prosthetic knee joint (CMS/HCC) Acute renal failure (CMS/HCC) Chronic knee pain 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 Chronic low back pain Corneal edema, unspecified Degeneration of lumbosacral intervertebral disc Dyspnea and respiratory abnormality Edema Herpes simplex iridocyclitis History of kidney stones History of pulmonary embolism Other specified inflammatory spondylopathies, 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[facility]) Pulmonary embolism with acute cor pulmonale ([facility]) Recurrent pulmonary emboli ([facility]) S/P laparoscopic sleeve gastrectomy Spinal stenosis, lumbar region, with neurogenic claudication Tachycardia 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 Past Medical History: Diagnosis Date Allergic rhinitis Anemia Anxiety BPH (benign prostatic hyperplasia) CKD (chronic kidney disease) 3 Diabetes ([facility]) GERD (gastroesophageal reflux disease) Hyperlipidemia Hyperparathyroidism ([facility]) Hypertension Kidney stones Lumbar pain OA (osteoarthritis) Obesity Obstetric pulmonary blood clot embolism, antepartum Sleep apnea Past Surgical History: Procedure Laterality Date ANKLE SURGERY Left JOINT REPLACEMENT Bilateral KIDNEY STONE SURGERY MULTIPLE LUMBAR FUSION STOMACH SURGERY N/A GASTRIC SLEEVE Pain Pain Assessment Pain Assessment: 0-10 Pain Score: 9 Pain Type: Acute pain, Surgical pain Pain Location: Knee Pain Orientation: Right Pain Interventions: Cold applied Home Living Home Living Type of Home: House Lives With: Spouse Home Adaptive Equipment: Walker rolling, Wheelchair-manual Home Layout: One level Home Access: Ramped entrance Bathroom Shower/Tub: Walk-in shower Bathroom Toilet: Standard Bathroom Equipment: Grab bars in shower, Hand-held shower, Raised toilet seat without rails Prior Level of Function Prior Function Level of [place]: Independent with ADLs and functional transfers (Amb with r. walker in home, uses w/c for increased distance.) Receives Help From: Family ADL Assistance: Independent Homemaking Assistance: Needs assistance Objective Precautions Precautions LE Weight Bearing Status: Right, WBAT Medical Precautions: fall risk, IV, TKA Post-Surgical Precautions: TKA Cognition Cognition Arousal/Alertness: Appropriate responses to stimuli Following Commands: Follows all commands and directions without difficulty General Assessments Activity Tolerance Endurance: Stage III Stage III (METs 2.0-3.0) - Sitting to Standin-10 mins Sensation Light Touch: No apparent deficits Postural Control Posture Assessment: Flexed posture Static Sitting Balance Static Sitting-Balance Support: Right upper extremity supported, Left upper extremity supported, Feet supported Static Sitting-Level of Assistance: Close supervision Dynamic Sitting Balance Dynamic Sitting-Balance Support: Unilateral upper extremity supported, Feet supported Dynamic Sitting-Balance: Forward lean Dynamic Sitting Balance-Level of Assistance: Close supervision Static Standing Balance Static Standing-Balance Support: Right upper extremity supported, Left upper extremity supported (walker) Static Standing-Level of Assistance: Close supervision Dynamic Standing Balance Dynamic Standing-Balance Support: Right upper extremity supported, Left upper extremity supported (walker) Dynamic Standing-Balance: Forward lean Dynamic Standing Balance-Level of Assistance: Contact guard Functional Assessments Bed Mobility Bed Mobility: Yes Bed Mobility 1 Bed Mobility From 1: Supine Bed Mobility Type 1: To and from Bed Mobility to 1: Short sit Level of Assistance 1: Minimum assistance Transfers Transfer: Yes Transfer 1 Transfer From 1: Sit Transfer Type 1: To and from Transfer to 1: Stand Transfer Device 1: rolling walker Transfer Level of Assistance 1: Close supervision Ambulation Ambulation: Yes Ambulation 1 Surface 1: Level tile Device 1: Rolling walker Assistance 1: Close supervision Qu (more content not included)...[facility]02-02-2023 Note Attestation signed by Payton Helm MD at 03/29/2022 8:41 AM I have not seen patient personally and discussed plan with resident Dr Donn Horner MD Orthopedic Surgery Subjective No acute events overnight. Patient resting comfortably in bed. Pain controlled. Denies numbness, tingling, chest pain, shortness of breath. Patient History Past Surgical History: Procedure Laterality Date ANKLE SURGERY Left JOINT REPLACEMENT Bilateral KIDNEY STONE SURGERY MULTIPLE LUMBAR FUSION STOMACH SURGERY N/A GASTRIC SLEEVE Past Medical History: Diagnosis Date Allergic rhinitis Anemia Anxiety BPH (benign prostatic hyperplasia) CKD (chronic kidney disease) 3 Diabetes ([facility]) GERD (gastroesophageal reflux disease) Hyperlipidemia Hyperparathyroidism ([facility]) Hypertension Kidney stones Lumbar pain OA (osteoarthritis) Obesity Obstetric pulmonary blood clot embolism, antepartum Sleep apnea Objective General: Body mass index is 43.79 kg/m???. No acute distress, comfortable Respiratory: Unlabored breathing with normal rate, no cough Cardiovascular: Warm well perfused extremities Psych: Appropriate mood behavior General: No acute distress alert and oriented sitting comfortably in bed General: No acute distress alert and oriented sitting comfortably in bed Right lower extremity: Dressing: clean, dry, intact Tenderness to palpation: saúl-incisional ROM-deferred due to pain EHL, FHL, ankle plantar flexion, ankle dorsiflexion 5/5 Sensation-saphenous, sural, superficial peroneal, deep peroneal, tibial nerve distributions sensation intact to light touch Dorsalis pedis and posterior tibial pulses palpable Compartments are soft and compressible Imaging personally reviewed: Post op knee xray: no acute fractures, hardware in place without evidence of complications Labs: Lab Results Component Value Date HGB 11.9 (L) 03/29/2022 HGB 13.0 02/23/2022 HGB 11.4 (L) 12/31/2021 Lab Results Component Value Date CREATININE 1.41 (H) 03/29/2022 CREATININE 1.23 01/02/2022 CREATININE 1.30 12/31/2021 Lab Results Component Value Date CRP 24.6 (H) 02/23/2022 CRP 14.2 (H) 12/28/2021 CRP 9.6 (H) 12/15/2020 Lab Results Component Value Date SEDRATE 39 (H) 02/23/2022 SEDRATE 53 (H) 12/28/2021 Lab Results Component Value Date CULTURE No growth at 5 days 12/27/2021 CULTURE No growth at 5 days 12/27/2021 CULTURE No growth at 5 days 12/27/2021 Assessment/Plan Sukhdeep Simental is a 56 y.o. year old male with status post REVISION, TOTAL ARTHROPLASTY, KNEE, ALL COMPONENTS [id number] - [place] REVJ TOT KNEE ARTHRP FEM&ENTIRE TIBIAL COMPONE DOS: 03/28/22 Weight-bearing status:WBAT limit flexion to 90 DVT prophylaxis: Eliquis Antibiotics: saúl op ancef Infectious disease consulted for PJI abx recs Pain control, ice, elevate PT/OT Discharge home today or tomorrow Donn Horner MD Orthopedic Surgery Resident Orthopedic Surgery Pager: [phone] 03/29/22 7:[facility] NotePatient: Sukhdeep Simental Procedure Summary Date: 03/28/22 Room / Location: [facility] OPERATING ROOM 04 / [facility] Operating Room Anesthesia Start: 1140 Anesthesia Stop: 1437 Procedure: REVISION, TOTAL ARTHROPLASTY, KNEE, ALL COMPONENTS (Right: Knee) Diagnosis: 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 Quadriceps weakness Infection of prosthetic knee joint, subsequent encounter (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 [Z86.19, Z98.890]) Surgeons: Payton Helm MD Responsible Provider: Dereck Rosales MD Anesthesia Type: general, regional ASA Status: 3 Anesthesia Type: general, regional Vitals Value Taken Time BP 167/85 03/28/22 1430 Temp 36.6 ???C (97.9 ???F) 03/28/22 1430 Pulse 102 03/28/22 1500 Resp 18 03/28/22 1500 SpO2 99 % 03/28/22 1430 Anesthesia Post Evaluation Patient location during evaluation: PACU Patient participation: complete - patient participated Level of consciousness: awake and alert Pain score: 4 Pain management: adequate Airway patency: patent Cardiovascular status: acceptable Respiratory status: acceptable Hydration status: acceptable Comments: Pain reasonably controlled, suitable for discharge from PACU. There were no known notable events for this encounter.[facility]02-01-2023 NoteAirway Date/Time: 03/28/2022 11:48 AM Urgency: elective Airway not difficult General Information and Staff Patient location during procedure: OR Anesthesiologist: Dereck Rosales MD Resident/ROAD OILER/CAA: AMY Rust Performed: resident/ROAD OILER/AMY Indications and Patient Condition Indications for airway management: anesthesia Spontaneous Ventilation: absent Sedation level: deep Preoxygenated: yes Patient position: sniffing Mask difficulty assessment: 1 - vent by mask No planned trial extubation Final Airway Details Final airway type: endotracheal airway Successful airway: ETT Cuffed: yes Successful intubation technique: direct laryngoscopy Endotracheal tube insertion site: oral Blade: Dee Blade size: #3 ETT size (mm): 7.5 Cormack-Lehane Classification: grade I - full view of glottis Placement verified by: chest auscultation and capnometry Measured from: lips ETT to lips (cm): 22 Number of attempts at approach: 1 Number of other approaches attempted: 0[facility] 03-28-2022 NotePeripheral Block Patient location during procedure: pre-op Start time: 03/28/2022 10:43 AM End time: 03/28/2022 10:58 AM Reason for block: at surgeon's request and post-op pain management Staffing Performed: resident/ROAD OILER/CAA Anesthesiologist: Dereck Rosales MD Resident/ROAD OILER: Dami Henry MD Preanesthetic Checklist Completed: patient identified, IV checked, site marked, risks and benefits discussed, surgical consent, monitors and equipment checked, pre-op evaluation and timeout performed Peripheral Block Patient position: supine Prep: ChloraPrep Patient monitoring: continuous pulse ox and heart rate Block type: adductor canal block Laterality: right Injection technique: single-shot Guidance: ultrasound guided Needle Needle gauge: 21 G Needle length: 4 in Needle localization: ultrasound guidance Medications Administered Midazolam (VERSED) IV, 2 mg bupivacaine HCl (Marcaine) 0.5 % (5 mg/mL) injection, 100 mg Assessment Injection assessment: negative aspiration for heme and no paresthesia on injection Heart rate change: [facility]02-01-2023 NotePatient: Sukhdeep Simental Procedure Information Anesthesia Start Date/Time: 12/27/21 0838 Procedure: INFECTED PROSTHETIC, STAGE 1 REVISION AND DEBRIDEMENT, REMOVAL OF HARDWARE ALL COMPONENTS, WASHOUT AND SPACER PLACEMENT (Right: Knee) - biometInpatient Only, reps notified. 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 Patient understands these risks and is willing to proceed with the nerve block. ) intravenous induction Anesthetic plan and risks discussed with patient. Plan discussed with CAA. [facility] Note Patient called into the office and stated that his procedure is schedule on sat03/28/2022 for a knee replacement and he needs la paperwork completed and a letter for medical necessity for DOS 07/21/2021 claim# [id number], the letter can be faxed to [phone] subject line Attn Garrett roy , and questions in regards to procedure. He states that he know your in clinic and he tried calling several times today.[facility]01-23-2023 Hospital Discharge instructions Patient Education 03/19/2022 08:17:27 Dietary Guidelines to Help Prevent Kidney Stones Dietary Guidelines to Help Prevent Kidney Stones Kidney stones are deposits of minerals and salts that form inside your kidneys. Your risk of developing kidney stones may be greater depending on your diet, your lifestyle, the medicines you take, and whether you have certain medical conditions. Most people can reduce their chances of developing kidney stones by following the instructions below. Depending on your overall health and the type of kidney stones you tend to develop, your dietitian may give you more specific instructions. What are tips for following this plan? Reading food labels Choose foods with no salt added or low-salt labels. Limit your sodium intake to less than 1500 mg per day. Choose foods with calcium for each meal and snack. Try to eat about 300 mg of calcium at each meal.Foods that contain 200 500 mg of calcium per serving include: ?8 oz (237 ml) of milk, fortified nondairy milk, and fortified fruit juice. ?8 oz (237 ml) of kefir, yogurt, and soy yogurt. ?4 oz (118 ml) of tofu. ?1 oz of cheese. ?1 cup (300 g) of dried figs. ?1 cup (91 g) of cooked broccoli. ?1 3 oz can of sardines or mackerel. Most people need 1000 to 1500 mg of calcium each day. Talk to your dietitian about how much calciumis recommended for you. Shopping Buy plenty of fresh fruits and vegetables. Most people do not need to avoid fruits and vegetables, even if they contain nutrients that may contribute to kidney stones. When shopping for convenience foods, choose: ?Whole pieces of fruit. ?Premade salads with dressing on the side. ?Low-fat fruit and yogurt smoothies. Avoid buying frozen meals or prepared deli foods. Look for foods with live cultures, such as yogurt and kefir. Cooking Do not add salt to food when cooking. Place a salt shaker on the table and allow each person to addhis or her own salt to taste. Use vegetable protein, such as beans, textured vegetable protein (TVP), or tofu instead of meat in pasta, casseroles, and soups. Meal planning Eat less salt, if told by your dietitian. To do this: ?Avoid eating processed or premade food. ?Avoid eating fast food. Eat less animal protein, including cheese, meat, poultry, or fish, if told by your dietitian. To dothis: ?Limit the number of times you have meat, poultry, fish, or cheese each week. Eat a diet free of meat at least 2 days a week. ?Eat only one serving each day of meat, poultry, fish, or seafood. ?When you prepare animal protein, cut pieces into small portion sizes. For most meat and fish, one serving is about the size of one deck of cards. Eat at least 5 servings of fresh fruits and vegetables each day. To do this: ?Keep fruits and vegetables on hand for snacks. ?Eat 1 piece of fruit or a handful of berries with breakfast. ?Have a salad and fruit at lunch. ?Have two kinds of vegetables at dinner. Limit foods that are high in a substance called oxalate. These include: ?Spinach. ?Rhubarb. ?Beets. ?Potato chips and [place] fries. ?Nuts. If you regularly take a diuretic medicine, make sure to eat at least 1 2 fruits or vegetables high in potassium each day. These include: ?Avocado. ?Banana. ?[place], prune, carrot, or tomato juice. ?Baked potato. ?Cabbage. ?Beans and split peas. General instructions Drink enough fluid to keep your urine clear or pale yellow. This is the most important thing you can do. Talk to your health care provider and dietitian about taking daily supplements. Depending on your health and the cause of your kidney stones, you may be advised: ?Not to take supplements with vitamin C. ?To take a calcium supplement. ?To take a daily probiotic supplement. ?To take other supplements such as magnesium, fish oil, or vitamin B6. Take all medicines and supplements as told by your health care provider. Limit alcohol intake to no more than 1 drink a day for non women and 2 drinks a day for men. One drink equals 12 oz of beer, 5 oz of wine, or 1 oz of hard liquor. Lose weight if told by your health care provider. Work with your dietitian to find strategies and an eating plan that works best for you. What foods are not recommended? Limit your intake of the following foods, or as told by your dietitian. Talk to your dietitian about specific foods you should avoid based on the type of kidney stones and your overall health. Grains Breads. Bagels. Rolls. Baked goods. Salted crackers. Cereal. Pasta. Vegetables Spinach. Rhubarb. Beets. Canned vegetables. Pickles. Olives. Meats and other protein foods Nuts. Nut butters. Large portions of meat, poultry, or fish. Salted or cured meats. Deli meats. Hotdogs. Sausages. Dairy Cheese. Beverages Regular soft drinks. Regular vegetable juice. Seasonings and other foods Seasoning blends with salt. Salad dressings. Canned soups. Soy sauce. Ketchup. Barbecue sauce. Canned pasta sauce. Casseroles. Pizza. Lasagna. Frozen meals. Potato chips. Russian fries. Summary You can reduce your risk of kidney stones by making changes to your diet. The most important thing you can do is drink enough fluid. You should drink enough fluid to keep your urine clear or pale yellow. Ask your health care provider or dietitian how much protein from animal sources you should eat eachday, and also how much salt and calcium you should have each day. This information is not intended to replace advice given to you by your health care provider. Make sure you discuss any questions you have with your health care provider. Document Released: 06/08/2011 Document Revised: 06/03/2019 Document Reviewed: 01/22/2017 [employer] Patient Education 2019 [employer]. Follow Up Care 03/15/2022 09:49:40 With:LIDIA JACOBS, Cecelia Jj, URL Address: [facility] [address], [place] [address]- When: Unknown [facility] 01-16-2023 NoteIndication: Renal mass. Comparison: 07/14/2021 exam. Procedure: Axial images were made from the diaphragms through the symphysis pubis. No oral contrast or intravenous contrast was given. Dose reduction techniques were achieved by using automated exposure control and/or adjustment of mA and/or kV according to patient size and/or use of iterative reconstruction technique. Findings: Liver/Biliary System: Stable 3 hypodensities in the liver measuring up to 1.3 cm, most likely cysts. No suspicious liver lesions are seen. No intra or extrahepatic biliary dilatation. No gallstones or cholecystitis. Pancreas/Spleen: Pancreatic duct is not dilated. No evidence of pancreatitis. No obvious pancreatic lesions are seen. No splenomegaly. Kidneys/Adrenals: 3 right renal nonobstructive stones are seen, the largest measures 8mm. A 5 mm left renal nonobstructive stone. No ureteral stones. No hydronephrosis or hydroureter bilaterally. 4 hypodensities are seen in the right kidney, the largest measures 3 cm. Those hypodensities are most likely cysts, however evaluation is limited due to lack of IV contrast. No obvious renal masses identified, in limitation of no IV contrast. Stable nonspecific mild bilateral adrenal nodularities, probably benign.. Aorta/Vessels: No evidence of aortic aneurysm. Evaluation of vessels is limited due to lack of IV contrast. Bowel/Fluid/Nodes: No bowel dilatation. No bowel wall thickening. Colonic diverticulosis with no evidence of diverticulitis. Status post gastric sleeve procedure. Normal appendix. No ascites or fluid collection. No adenopathy. Lung bases: Clear. Other findings: No aggressive osseous lesions are seen. Hardware in lower lumbar spine. Pelvis: No pelvic masses or adenopathy. No free fluid seen in the pelvis. Bladder, seminal vesicles and prostate grossly unremarkable. Other Findings: No aggressive osseous lesions are seen. Impression: 1. 4 right renal hypodensities, the largest measures 3 cm. Those hypodensities are more likely cysts, however evaluation is limited due to lack of IV contrast. No obvious renal masses identified, in limitation of no IV contrast. 2. Bilateral renal nonobstructive stones measuring up to 8 mm. No hydronephrosis. 3. Colonic diverticulosis with no evidence of diverticulitis. Hepatic cysts measuring up to 1.3 cm. Stable mild bilateral adrenal nodularities, probably benign. Hardware in lower lumbar spine. Electronically authenticated by: CITLALI GIRON Date: 2022-03-12 18:03[facility]12-30-2022 NoteOrthopedic Surgery Visit Description: Follow-up Subjective Chief complaint: Follow-up status post stage I revision right TKA 02/23/22 Sukhdeep Simental is a 56 y.o. year old male presenting for preop visit and above-mentioned reason. DOS: 12/27/2021. Patient has completed IV antibiotics under the guidance of the infectious disease team and is eager to pursue a stage II revision today. Patient denies any incisional issues with the right knee. Denies any constitutional symptoms concerning for infection including fever/night sweats/chills/malaise/fatigue. Patient denies any new numbness/tingling/weakness to the right lower extremity that is different than his baseline. Patient has had multiple revisions to the right knee up to this point. He is unhealthy at baseline and he does understand that we will attempt one more revision to his right knee before we have to proceed with either a amputation or fusion. Patient History Past Surgical History: Procedure Laterality Date ANKLE SURGERY Left JOINT REPLACEMENT Bilateral KIDNEY STONE SURGERY MULTIPLE LUMBAR FUSION STOMACH SURGERY N/A GASTRIC SLEEVE Past Medical History: Diagnosis Date Allergic rhinitis Anemia Anxiety BPH (benign prostatic hyperplasia) CKD (chronic kidney disease) 3 Diabetes (CMS/HCC) GERD (gastroesophageal reflux disease) Hyperlipidemia Hyperparathyroidism (CMS/HCC) Hypertension Lumbar pain OA (osteoarthritis) Obesity Obstetric pulmonary blood clot embolism, antepartum Sleep apnea Objective General: Body mass index is 38.69 kg/m???. General: No acute distress, comfortable Respiratory: Unlabored breathing with normal rate, no cough Cardiovascular: Warm and well perfused extremities Psych: Appropriate mood and behavior. Alert and oriented to person, place, time, and event Right lower extremity: -Incision is completely healed without any signs of surrounding erythema or induration -There is not a significant effusion present -Active and passive range of motion exam deferred secondary to known static spacer in place -Compartments of thigh and leg are soft and compressible -Right lower extremity is grossly neurovascularly intact distally Imaging personally reviewed: X-rays show well-maintained static antibiotic cement spacer Assessment/Plan Sukhdeep Simental is a 56 y.o. year old male with right knee prosthetic joint infection that is status post stage I revision arthroplasty performed 12/27/2021 -Clinically, the right knee looks far improved today with no significant effusion. Furthermore, he denies any constitutional symptoms concerning for infection. Given his history and exam findings, we will proceed with right TKA revision in the form of either a stage I or stage II. We will obtain intraoperative frozen sections which will determine whether we proceed with a definitive stage II or repeat stage I. Consent obtained today -Repeat ESR, CRP, CBC= is a ESR has subsided from 53 months ago to 39 mm at the end of first hour. White cell count has subsided to 5.7. C-reactive protein is 24.6 I have explained to the patient that we will plan for stage II versus stage I revision of his right knee arthroplasty if deemed cleared by his infectious disease team as well as his primary care physician. Risk and benefits of multiple revisions were again discussed at length with the patient including the fact that he has had bone loss which was explained to him on the x-rays. Patient will benefit with stage II revision knee arthroplasty if infection is completely cleared and will need long-term antibiotic suppression to prevent recurrence of infection in future. Due to his weakness in his quadriceps and lumbosacral activity he will have guarded outcome following revision. Risk and benefits of his surgery were explained at length with the patient including complication which are but not restricted to bleeding, infection, neurovascular, residual pain and stiffness, anesthetic risk, deep vein thrombosis, pulmonary embolism, myocardial infarction, stroke, mortality less than 1%, loosening of the hardware, failure of knee arthroplasty requiring fusion and or above-knee amputation, wound dehiscence, wound healing complications, need for lifelong antibiotic suppression as well as long-term physical therapy rehab were all discussed at length with the patient. Despite all the risks he wishes to proceed with surgery. He has signed his consent form today. We will wait for his final paperwork prior to the placement of his wrist. He understand this may take about 3 to 4 weeks Prior to the surgery. All questions answered patient happy with plan. -Obtain preoperative clearance. Once he is able to do this, he can let us know over the phone and we can schedule his surgery and provide him with the appropriate instructions/orders without needing him to return for formal visit. Return to Clinic for routine (more content not included)...[facility]11-23-2022 NoteDate of Telehealth Visit: 01/17/2022 HPI: Sukhdeep Simental is a 56 y.o. male patient HPI: This is a 48 years old male patient, medical history of CKD 3, morbid obesity, bilateral knee arthoplasty with multiple knee replacement and revisions, BPH, and anxiety admitted to [facility] on 12/27/2021 for a planned right knee revision with hardware removal per . Of note, patient was seen in orthopedic clinic and there was concerns for loosening of the prosthesis. On 12/27/2021 patient underwent a debridement with stage I revision of the right knee arthroplasty with placement of antibiotic cement spacer. Infectious disease was consulted and patient was initially started on IV vancomycin and ceftriaxone pending susceptibility report. Intra-Op cultures were all negative. It is noted that patient completed a course of amoxicillin and oral cephalosporin for about 4 weeks (2 weeks prior to this infection). Fluid cultures grew many polymorphonuclear leukocytes. 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 IV Ceftriaxone was discontinued. ID recommended empiric IV Vancomycin for 6 weeks however patient declined need for extensive course of IV antibiotics due to high deductible. ID recommended IV Dalbavancin X 2( 1 week apart) which is tissue ANGELIQUE equivalent to 6 weeks course. Patient is seen via telemedicine visit. He completed IV Dalbavancin X 2 on 01/11/22. Patient states he tolerated IV antibiotics well without adverse reaction. Patient followed up with Dr Helm on 01/12/22; he states right knee is without drainage, warmth, or redness. He has an upcoming appointment on 02/23/[address] Helm plans to aspirate the knee and if cultures are negative then plans for stage 2 revision. Patient expresses concerns regarding need to have his new knee replaced as soon as possible as he stated no cultures were obtained. He reports right knee pain otherwise denies fever, chills, nausea, vomiting, or diarrhea. The patient was notified that using 3rd constitution party telecommunication application (e.g., [employer]) is not HIPPA compliant and may carry some privacy risks. Yes The visit was conducted [id number] with the use of audio and video technology [employer] between patient and provider for a virtual visit. Verbal consent to provide and bill this service was obtained on 01/17/2022. No signature was obtained due to the COVID-19 pandemic. Patient Location: home I spent 12 minutes of total time on the day of the visit. This time was spent preparing for the visit, obtaining and reviewing any outside history/data, taking a history, performing an exam/evaluation, counseling and educating patient/family about the diagnosis and plan, performing medical decision making, referring to and communicating with other health care referrals, independently interpreting results and documenting in the EMR, and coordinating care. Please see the additional documentation in this note for specific details. Review of Systems Constitutional: Negative. Negative for activity change. Right knee pain HENT: Negative. Eyes: Negative. Respiratory: Negative. Cardiovascular: Negative. Gastrointestinal: Negative. Endocrine: Negative. Genitourinary: Negative. Musculoskeletal: Negative. Skin: Positive for wound. Neurological: Negative. Hematological: Negative. Psychiatric/Behavioral: Frustration Objective Physical Exam Patient is alert and oriented x 4 Patient denies drainage, warmth, or hotness to right knee. States right knee is open to air LAB 01/02/22 Lab Results Component Value Date WBC 6.63 12/31/2021 BUN 12 01/02/2022 CRP 14.2 (H) 12/28/2021 SEDRATE 53 (H) 12/28/2021 Assessment/Plan Diagnoses and all orders for this visit: Infection of prosthetic knee joint, subsequent encounter [id number] patient with bilateral knee arthoplasty with multiple knee replacement and revisions admitted to [facility] on 12/27/2021 for prosthetic joint infection of the right knee sp debridement with stage I revision of the right knee arthroplasty with placement of antibiotic cement spacer on 12/27/21. Intra-operative cultures were all negative. However, intraoperative findings were concerning for true infection. Patient has completed IV Dalbavancin X 2 on 01/11/22 without adverse reaction. Patient again expresses frustration regarding need for implantation of new prosthesis within 4 weeks post IV Antibiotics. I reinforced to patient that while intraoperative cultures may have been negative, operative findings were concerning for true infection and it was imperative to follow evidenced based guidelines to avoid recurrent infection. I recommended to repeat inflammatory markers however patient declines at this time; He has an upcoming appointment with Orthopedic next month and they plan on obtaining an aspiration o (more content not included)...[facility] 01-12-2022 NoteOrthopedic Surgery Subjective Follow-up and Pain of the Right Knee 01/12/22 Sukhdeep Simental is a 56 y.o. male presenting for evaluation of first post operative visit status post right stage 1 revision with debridement and removal of hardware (DOS 12/27/21). The patient reports he has not had fevers, chills, rigors, or constitutional symptoms since he was discharged from the hospital. He has completed the antibiotic infusions of dalbavancin without complication. He has been nonweightbearing on the right lower extremity. He denies calf pain, CP, SOB, calf swelling, or pain with range of motion of the right ankle. Patient has questions about the cultures which did not grow anything and as to whether he can go for revision knee arthroplasty staged as soon as possible. Patient History Past Surgical History: Procedure Laterality Date ANKLE SURGERY Left JOINT REPLACEMENT Bilateral KIDNEY STONE SURGERY MULTIPLE LUMBAR FUSION STOMACH SURGERY N/A GASTRIC SLEEVE Past Medical History: Diagnosis Date Allergic rhinitis Anemia Anxiety BPH (benign prostatic hyperplasia) CKD (chronic kidney disease) 3 Diabetes ([facility]) GERD (gastroesophageal reflux disease) Hyperlipidemia Hyperparathyroidism ([facility]) Hypertension Lumbar pain OA (osteoarthritis) Obesity Obstetric pulmonary blood clot embolism, antepartum Sleep apnea Objective General: Body mass index is 41.05 kg/m???. No acute distress, comfortable Respiratory: Unlabored breathing with normal rate, no cough Cardiovascular: Warm well perfused extremities Psych: Appropriate mood behavior Right knee: Anterior knee incision has healed well, dressings were taken down did not show any major hematoma. No signs of redness noted. Knee immobilizer in place and rohan bandage taken down. Mepilex dressing in place. No visible erythema or redness about incision Non tender to palpation of right knee Motor intact to DF, PF, EHL, FHL SILT to ankle in sural, saphenous, spn, dpn, and tibial distributions WWP foot Knee quads and hamstring power cannot be tested due to the fusion due to spacer at this point in time. Imaging Xray of right knee obtained in clinic today were seen by myself and interpreted independently which were the patient has antibiotic implanted cement spacer with intramedullary extension stress to enable antibiotic extraction. Patient also has very thinned out kneecap on the anterior aspect. These were compared with the previous x-rays and these were shown and explained to the patient and his family. I have explained to him that he has some bone loss on the femur as well as the proximal tibia and the patella. Assessment/Plan Sukhdeep Simental is a 56 y.o. male with 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, initial encounter ([facility]) Disc degeneration, lumbar Infection of prosthetic knee joint, subsequent encounter presenting for first post operative visit s/p right stage 1 revision and debridement with removal of hardware components and antibiotic spacer placement. Details of the problem and treatment options were discussed at length with the patient including treatment options. Patient had questions about his cultures which did not grow any organism. I explained to him that about 10 to 15% of the cultures may not grow anything but since intraoperatively I found that he had high number of PMNs per high-power field in the frozen section he has infection of this problem otherwise. This may be due to slow-growing organism or organisms that are not detected. Newer modalities of investigations are not available at this point in time at [facility] and we will continue to plan his treatment as a gold standard two-stage treatment. We will review him in 4 weeks time and if he has effusion we will plan to aspirate his knee joint at that point in time. If he does not have any effusion we will plan for stage II revision as an as we get his clearance. I have explained to him that I cannot promise him that his stage II revision will be done before the end of the year. I have also explained to him that we have done our best to avoid premature placement of his new second stage knee arthroplasty and have failure requiring future amputations. We will also avoid future bone loss by doing two-stage revision. Also explained to him that he does have a very thinned out kneecap which had severe destruction of his bone due to possible chronic osteomyelitis. Since he had severe loosening of his hardware he has higher than normal risk for complications in future including further recurrent loosening and or bone loss and complications from scarring as well as loss of his extensor mechanism. I have shown him his previous preoperative x-rays which show that the patient has severe low-lying patella as well as severe lucency underlying the patella component as well as around the tibial and femoral component. I have (more content not included)...[facility]11-08-2022 NotePt ready for discharge and has been setup to do his 2 outpatient infusions through [facility] in [place]. Sent final AVS and discharge order to [facility] via [employer]. Also obtained scripts/face to face to [facility] in [place] for a bariatric rolling walker and provided pt with the address to pick it up.[facility]11-08-2022 NotePhysical Therapy Physical Therapy Treatment Patient Name: Sukhdeep Simental : 1965 Today's Date: 01/02/2022 Patient Active Problem List Diagnosis Chronic instability of right knee Loose right total knee arthroplasty (CMS/HCC) Quadriceps weakness Lumbosacral radiculopathy Encounter for pre-operative laboratory testing HTN (hypertension) Diabetes mellitus, type 2 (CMS/HCC) Gastroesophageal reflux disease Morbid obesity (CMS/HCC) ELIDA (obstructive sleep apnea) Anxiety Chronic kidney disease Infection of prosthetic knee joint (CMS/HCC) Pain Pain Assessment Pain Assessment: 0-10 Pain Score: 9 Pain Type: Acute pain Pain Location: Knee Pain Orientation: Right Pain Frequency: Constant/continuous Pain Onset: Ongoing Clinical Progression: Not changed Objective General Visit Information: PT Last Visit PT Received On: 01/02/22 Response to Previous Treatment: Patient with no complaints from previous session. General Family/Caregiver Present: No Subjective: Pt. seen bedside for PT session this a.m. Upon arrival, pt. in bedside chair and reports he has been sitting since ~0600. Pt. states I just decided I am going to go home . Pt. reports that he feels he is ready to go home and does not necessarily feel the need to work on anything with PT at this time. Did ask pt. if he needed to ambulate to the bathroom or would like to return to the bed, which he defers. Pt. cont. to report sig. right knee pain, but is agreeable to education with this [employer]NICE [employer]KER at this time. Precautions Precautions LE Weight Bearing Status: Right, NWB (Spoke to pt. regarding importance of maintaining NWBing with activities. Pt. reports he is in good understanding of this.) Medical Precautions: fall risk, immobilizer (Spoke to pt. regarding proper positioning of immobilizer, states he is in good understanding of this.) General Assessments: Cognition Overall Cognitive Status: Within Functional Limits Attention Span: Appears intact Memory: Appears intact Problem Solving: Assistance required to generate solutions Treatment: Stairs Stairs: No (Pt. reports one threshold step to enter his home. Demonstrated use of rollator at top of step with brakes applied as he uses RW to position himself so that he can turn and sit into rollator. Pt. reports good understanding of this.) Other Activity Other Activity 1: Spoke to pt. at length regarding home discharge. Pt. reports that he was able to manage getting OOB without assistance stabilizing RLE this morning and has adjustable bed at home. Does report he also has a lift chair at home which he intends on primarily sleeping in. Pt. has mostly only required CGA for transfers and limited ambulation for safety and states that or daughter would be able to give this assistance if needed. Pt. does report this date that he does not have a manual w/c at home but has rollator. SW is attempting to obtain bariatric RW for pt. at this time. Pt. states he would like to have a w/c for home and appointment use, but if needed can sit in rollator for longer distances. Did give education and demonstration of technique to negotiate one threshold step to enter home (see stair section) and pt. reports he is in good understanding of this. Pt. does not feel need to perform any activities with PT at this time. Outcome Assessments 6 Clicks (Mobility) Impairment Codes: Fracture/Other ortho Help from another person turning from your back to your side while in a flat bed without using bedrails: A little Help from another person moving from lying on your back to sitting on the side of a flat bed without using bedrails: A little Help from another person moving to and from a bed to a chair (including a wheelchair): A little Help from another person standing up from a chair using your arms (e.g. wheelchair or bedside chair): A little Help from another person to walk in hospital room: A little Help from another person climbing 3-5 steps with a railing: Total Mobility 6 Clicks T-Score: 16 Assessment/Plan PT Assessment PT Assessment/CORNICE MAKER Summary: Pt. reports good understanding of all education given this session. Evaluation/Treatment Tolerance: Patient limited by pain Medical Staff Made Aware: Yes PT Education/Comments: Pt. educated in home safety and fall prevention. Reports good understanding of this. Plan Level of assist: 1 assist Treatment/Interventions: Patient/family training PT Plan: Skilled PT PT Frequency: 1 time per day until discharge & PRN PT Discharge Recommendations: (Pt. reports wish to discharge home at this time.) Equipment Recommended: rolling walker (bariatric RW) Goals: Multi-Disciplinary Problems (from Physical Therapy) Active Problems Problem: Balance Start Date: 12/28/21 Goal Start Date Expected End Date End Date LTG - Patient will maintain standing and sitting balance to allow f (more content not included)...[facility]11-08-2022 Note Subjective Patient continues to endorse right knee pain this morning. He does not want a picc line and IV antibiotics, he is agreeable to the transfusion that infectious disease is setting up. Objective Patient Vitals for the past 24 hrs: BP Temp Temp src Pulse Resp SpO2 Weight 01/02/22 0413 -- -- -- -- -- -- (!) 138 kg (303 lb 2.1 oz) 01/01/22 1946 158/89 37.3 ???C (99.1 ???F) Oral 88 16 97 % -- 01/01/22 1500 (!) 188/99 36.9 ???C (98.5 ???F) Oral 82 17 99 % -- Physical Exam Gen: Alert, no acute distress. RLE: Dressing is clean, dry and intact. Fires ankle df/pf. SILT in SP/T. DP pulse intact. Lab Results Component Value Date NA 141 01/02/2022 K 4.4 01/02/2022 CL 107 01/02/2022 ANIONGAP 4 (L) 01/02/2022 BUN 12 01/02/2022 CREATININE 1.23 01/02/2022 CALCIUM 8.9 01/02/2022 No results found for: BILITOT, BILIDIR, ALKPHOS, AST, ALT, PROT, ALBUMIN Lab Results Component Value Date WBC 6.63 12/31/2021 RBC 3.79 (L) 12/31/2021 HGB 11.4 (L) 12/31/2021 HCT 35.3 (L) 12/31/2021 MCV 93.1 12/31/2021 MCH 30.1 12/31/2021 MCHC 32.3 12/31/2021 RDW 13.3 12/31/2021 NEUTOPHILPCT 63.2 12/31/2021 LYMPHOPCT 21.7 12/31/2021 MONOPCT 9.2 12/31/2021 EOSPCT 4.8 12/31/2021 BASOPCT 0.5 12/31/2021 NEUTROABS 4.19 12/31/2021 LYMPHSABS 1.44 12/31/2021 MONOSABS 0.61 12/31/2021 EOSABS 0.32 12/31/2021 BASOSABS 0.03 12/31/2021 PLT 228 12/31/2021 NRBC 0.0 12/31/2021 === Imaging Orders, Last 24 Hours === XR KNEE 1-2 VIEWS RIGHT - Impression - Right total knee arthroplasty revision. Arthroplasty hardware removed and a cement spacer and 2 small metal rods placed tibia and fibula. There is some immediate postprocedure soft tissue air and a soft tissue swelling Electronically signed: Todd Ashby. Assessment/Plan Active Problems: Chronic instability of right knee Loose right total knee arthroplasty ([facility]) 56 yo m with R knee stage 1 revision 12/27/21. 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 We explained this to the patient but he is adamant that he does not have an infection since his cultures are negative. We believe he would benefit from a proper stage 1 and 2 revision with at least 6 weeks of IV antibiotics but he is adamant that he does not need this. He wants only the infusion that Infectious disease is setting up and would like surgery earlier than 6-8 weeks and says he is willing to take the risk of not ridding his infection. -NWB RLE in Knee brace. -ID abs per ID. -Appreciate med management. -Pain meds. -DVT proph with eliquis. -DC likely today. Dave Reyes [id number] NoteOhio[facility] is only HHC agency that accepted and pt agreeable. Updated AVS.[facility]11-07-2022 NoteFinal ID recs are in for 2 outpatient doses of Dalbavancin. Advised [facility] of this and they ran the cost which would be $5279 for each dose and would be a problem for them. Discussed this with the pt on how if he went home and did the doses outpatient it would be significantly cheaper and that SNF placement would be very difficult now. Pt responded that he just wants to go home citing I was on the cusp about really wanting to go to a SNF anyway . Asked pt if he wanted us to set up [facility] and he is agreeable and wanted [facility] which after a phone call is only outpatient therapy, not home. Pt then stated he would want [facility] and is agreeable to multiple referrals in case they cannot accept. [facility] is working on setting up pt's outpatient infusions. Pt also reported his cannot pick him up tonight anyway. [facility]11-07-2022 NoteAwaiting fax [facility] Dalbavancin injections. Once this is filled out their scheduling department will call the patient.[facility]11-07-2022 Note Attestation signed by Gianni Richter DO at 01/01/2022 1:54 PM Reviewed and approved by GIANNI RICHTER on 01/01/22 at 1:54 PM. Patient name: Sukhdeep Simental Date of : 1965 Admission date: 12/27/2021 ANTIBIOTIC ORDERS Infectious Diseases Diagnosis for antibiotic management: Prosthetic joint infection right knee joint Name/dosing/frequency of antibiotic: dalbavancin x2 outpatient Continue antibiotics through: Two dose of dalbavancin LABORATORY ORDERS: CONTACT NUMBERS For all questions call: [phone] IV ACCESS: N/A IV ACCESS FLUSHING ORDERS PER INFUSION COMPANY PROTOCOL ID PHYSICIAN WHO WILL BE OVERSEEING OUTPATIENT IV ANTIMICROBIAL THERAPY: Dr. Asim Alfonso MD - fellow PRIMARY CARE PROVIDER: No primary care provider on file. ALLERGIES: Allergies Allergen Reactions Loratadine Other reaction(s): rash hives Iodine Rash Topical iodine-no dye per pain clinic Topical iodine WEIGHT: Wt Readings from Last 1 Encounters: 01/01/22 (!) 138 kg (303 lb 2.1 oz) HEIGHT: Ht Readings from Last 1 Encounters: 12/27/21 1.727 m (5' 8 ) RECENT LABS: Results from last 7 days Lab Units 12/31/21 0935 POTASSIUM mmol/L 3.7 CHLORIDE mmol/L 107 CO2 mmol/L 27 BUN mg/dL 14 CREATININE mg/dL 1.30 CALCIUM mg/dL 8.4* Results from last 7 days Lab Units 12/31/21 0935 WBC AUTO 10*3/uL 6.63 HEMOGLOBIN g/dL 11.4* HEMATOCRIT % 35.3* PLATELETS AUTO 10*3/uL 228 NEUTROS PCT AUTO % 63.2 LYMPHS PCT AUTO % 21.7 MONOS PCT AUTO % 9.2 EOS PCT AUTO % 4.8 Significant Hospital Summary: Patient is a 56-year-old male who presented to the hospital due to right knee stage I repair found to have infected hardware which was removed. Cultures negative thus far patient reluctant on starting or continuing 6 weeks of IV antibiotics decision made to give him 2 doses of dalbavancin. Patient agrees and understands plan. MICROBIOLOGY: Na DISPOSITION: TBD Follow-up: Patient needs to follow up in 2 weeks. Please call with appointment. This information has been explained to the patient: [facility]11-07-2022 NotePharmacy Dosing Service - Vancomycin Daily IVent Vancomycin Day 6 Indication: R knee periprosthetic infection Target: AUC 400-600 mg*hr/L and trough 10-20 mcg/mL Other Antimicrobial Regimens: None -Missed administrations? yes, 22:00 dose 12/30 -New Microbiology results? no -Renal function stable? yes -Date of last level evaluation? 12/29 Temp (24hrs), Av.9 ???C (98.4 ???F), Min:36.8 ???C (98.2 ???F), Max:36.9 ???C (98.5 ???F) Auto WBC Date/Time Value Ref Range Status 12/31/2021 09:35 AM 6.63 4.00 - 10.60 10*3/uL Final 12/28/2021 04:16 AM 12.19 (H) 4.00 - 10.60 10*3/uL Final 12/01/2021 12:11 PM 5.19 4.00 - 10.60 10*3/uL Final 12/19/2020 12:01 PM 11,976 WBC/uL Final Comment: Some reference interval(s) and other method performance specifications have not been established for analytes on this body fluid. The test result must be integrated into the clinical context for interpretation. 12/15/2020 11:51 AM 9.86 4.00 - 10.60 10*3/uL Final BUN Date/Time Value Ref Range Status 12/31/2021 09:35 AM 14 7 - 25 mg/dL Final 12/28/2021 04:16 AM 23 7 - 25 mg/dL Final 12/27/2021 06:45 PM 23 7 - 25 mg/dL Final 12/01/2021 12:11 PM 16 7 - 25 mg/dL Final Plan -Patient remains hemodynamically stable and afebrile with no leukocytosis and stable renal function on 12/31 labs -Continue vancomycin 1250 q12 with plans to switch to dalbavancin as outpatient per ID -Next levels on 01/02 Peak 01:00 Trough 09:00 -Check BUN/SCr daily Thank you for the consult! Abdias Tovar PharmD 01/01/2022[facility]11-07-2022 Note Attestation signed by Gianni Richter DO at 01/01/2022 2:06 PM I performed a history and physical examination of the patient Sukhdeep Simental, I independently reviewed the laboratory work and imaging as well as other studies mentioned in the above note; I have seen the patient along with and discussed the management with the Infectious Diseases fellow, Asim Alfonso MD I have reviewed the above note, I agree with the findings and plan of care with the following additions and corrections: Agree with above, discussed with patient at length. Given his underlying CKD he is reluctant to do 6 weeks of IV vanco therapy. I spoke with Ortho team and agree that intra-operative findings could very well be consistent with true infection even if surgical cultures are negative. Dalbavancin infusion times 2 achieves tissue ANGELIQUE equivalent of 6 weeks of therapy and would be a good alternative to daily IV therapy. It does not require the same kind of renal dose adjustments that vancomycin would. Patient would like to have new prosthesis implanted as soon as possible after completing antibiotics. I did explain that typical two stage procedure delays part two by 6-8 weeks to ensure there is no active infection and reduce risk of re-seeding new hardware. Patient stated he was willing the accept the risks of earlier placement. Ultimately it is at the discretion of Orthopedic surgery when to place new hardware. It is difficult to urge them to abandon the standard of care and place new hardware prior to 6 weeks. Thank you for allowing us to participate in the care of this patient. . Infectious Diseases - Progress Note Our team prefers to use [employer] for communication during business hours (8 AM - 5 PM). We make every effort to keep the Treatment Team in [facility] updated. If I do not respond within 30 minutes, please page me with urgent issues. From 5 PM - 8 AM, please page or call through the track moving machine operator for urgent issues. 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 Recommendations: Cultures negative thus far, does have a lot of leukocytes. Of note pt was on amoxicillin and oral cephalosporin for about 4 weeks (2 weeks prior to this infection). continue vancomycin, while inpatient Cultures have been negative thus far patient does not want to do 6 weeks of IV therapy at this time okay to give dalbavancin x2 outpatient if needed. Scripts in chart. If not approved can do oral therapy with doxycycline as an alternative option. No PICC line ordered for the above mentioned reasoning by pt. ID will sign off. Subjective Interval History: Patient seen and examined at bedside. No overnight events. No fevers no chills. No diarrhea. Objective Physical Examination : BP (!) 163/101 Pulse 83 Temp 36.9 ???C (98.5 ???F) (Oral) Resp 17 Ht 1.727 m (5' 8 ) Wt (!) 138 kg (303 lb 2.1 oz) SpO2 97% BMI 46.09 kg/m??? Temperature Range: Temp: 36.9 ???C (98.5 ???F) Temp Av.9 ???C (98.4 ???F) Min: 36.8 ???C (98.2 ???F) Max: 36.9 ???C (98.5 ???F) General Appearance: Awake, alert, and in no apparent distress Head: Normocephalic, without obvious abnormality, atraumatic Eyes: Pupils equal, round, reactive, to light and accommodation; extraocular movements intact; sclera anicteric; conjunctivae pink ENT: Oropharynx clear, without erythema, exudate, or thrush. Neck: Supple, without lymphadenopathy. Pulmonary/Chest: Clear to auscultation, without wheezes, rales, or rhonchi Cardiovascular: Regular rate and rhythm without murmurs, rubs, or gallops. Abdomen: Soft, nontender, nondistended. Extremities: Right knee wrapped in Rohan bandage Neurologic: Bulk and tone are normal. No atrophy is noted. Moves extremities.Sensation grossly intact Skin: No rash or lesions. Laboratory data: I have independently reviewed the following labs: Results from last 7 days Lab Units 12/31/21 0935 12/28/21 0416 WBC AUTO 10*3/uL 6.63 12.19* HEMOGLOBIN g/dL 11.4* 10.5* HEMATOCRIT % 35.3* 32.1* MCV fL 93.1 92.2 PLATELETS AUTO 10*3/uL 228 235 NEUTROS ABS 10*3/uL 4.19 -- LYMPHS ABS AUTO 10*3/uL 1.44 -- MONOS ABS AUTO 10*3/uL 0.61 -- EOS ABS AUTO 10*3/uL 0.32 -- BASOS ABS AUTO 10*3/uL 0.03 -- Results from last 7 days Lab Units 12/31/21 0935 12/28/21 0416 12/27/21 1845 POTASSIUM mmol/L 3.7 5.1 4.4 CHLORIDE mmol/L 107 107 104 CO2 mmol/L 27 25 25 BUN mg/dL 14 23 23 CREATININE mg/dL 1.30 1.34* 1.49* GLUCOSE mg/dL 150* 208* 246* CALCIUM mg/dL 8.4* 8.4* 8.7 Re (more content not included)...[facility]11-07-2022 NoteSent updates to [facility]. Awaiting pre-cert. Of note pt is refusing PICC placement.[facility]11-07-2022 Note Physical Therapy Physical Therapy Treatment Patient Name: Sukhdeep Simental : 1965 Today's Date: 01/01/2022 Patient Active Problem List Diagnosis Chronic instability of right knee Loose right total knee arthroplasty (CMS/HCC) Quadriceps weakness Lumbosacral radiculopathy Encounter for pre-operative laboratory testing HTN (hypertension) Diabetes mellitus, type 2 ([facility]/HCC) Gastroesophageal reflux disease Morbid obesity ([facility]) ELIDA (obstructive sleep apnea) Anxiety Chronic kidney disease Pain Pain Assessment Pain Assessment: 0-10 Pain Score: 9 Pain Type: Acute pain Pain Location: Knee Pain Orientation: Right Pain Frequency: Constant/continuous Pain Onset: Ongoing Clinical Progression: Not changed Pain Interventions: Cold applied, Repositioned Objective General Visit Information: PT Last Visit PT Received On: 01/01/22 Response to Previous Treatment: Patient with no complaints from previous session. General Family/Caregiver Present: No Subjective: Pt. seen bedside for PT session this a.m. Upon arrival, pt. in bed and cont. to report sig. right knee pain. Pt. also reports frustration with medical course at this time. States I told them what BP medication I take and they told me not to bring mine and they don't have it here also those doctors told me I don't have anything growing in my cultures so I don't know why they keep wanting me to have a PICC line . Pt. is overall pleasant and agreeable to working with PT at this time. RN vaughn session including up to bedside chair. Precautions Precautions LE Weight Bearing Status: Right, NWB Medical Precautions: fall risk, immobilizer Static Sitting Balance Static Sitting Balance Static Sitting-Balance Support: Unilateral upper extremity supported, Feet supported Static Sitting-Level of Assistance: Distant supervision Dynamic Sitting Balance Dynamic Sitting Balance Dynamic Sitting-Balance Support: Unilateral upper extremity supported, Feet supported Dynamic Sitting Balance-Level of Assistance: Close supervision Static Standing Balance Static Standing Balance Static Standing-Balance Support: Right upper extremity supported, Left upper extremity supported (UEs supported through RW) Static Standing-Level of Assistance: Contact guard Dynamic Standing Balance Dynamic Standing Balance Dynamic Standing-Balance Support: Right upper extremity supported, Left upper extremity supported (UEs supported through RW) Dynamic Standing Balance-Level of Assistance: Contact guard General Assessments: Activity Tolerance Ambulation comments: Pt. able to ambulate to and from bathroom from EOB with use of RW. Pt. again mostly maintains NWBing through RLE. Is noted to occassional place toe down for stability. Verbal reminder is given. Endurance: Stage III Activity Tolerance Comments: Pt. remains mostly limited by pain and occassional difficulty fully maintaining NWBing status. Cognition Overall Cognitive Status: Within Functional Limits Arousal/Alertness: Appropriate responses to stimuli Orientation Level: Oriented X4 Following Commands: Follows all commands and directions without difficulty Safety Judgment: Decreased awareness of need for safety Awareness of Errors: Assistance required to identify errors made Deficits: Decreased awareness of deficits Attention Span: Appears intact Memory: Appears intact Problem Solving: Assistance required to identify errors made Treatment: Therapeutic Exercise Therapeutic Exercise Activity 1: RLE (AROM) ankle pumps while long sitting in bedside chair Therapeutic Exercise Activity 2: Right heel cord stretches 4 x 20 ea. while long sitting in bedside chair Therapeutic Exercise Acitivity 3: RLE (AA/PROM) SLRs and hip abd/add 2 x 5 reps.ea. while long sitting in bedside chair Balance/Neuromuscular Re-Education Balance/Neuromuscular Re-Education Activity 1: Pt. stands for ~3 mins. at toilet to urinate using RW for stability. Ambulation Ambulation: Yes Ambulation 1 Surface 1: Level tile Device 1: Rolling walker Assistance 1: Contact guard Quality of Gait 1: Pt. mostly able to maintain NWBing through RLE, but occassionally places toe down for stability. Pt. with mild unsteadiness, but no LOB. Comments/Distance (ft) 1: 12' x 2 Stairs Stairs: No Bed Mobility Bed Mobility: Yes Bed Mobility 1 Bed Mobility From 1: Long sit Bed Mobility Type 1: To Bed Mobility to 1: Short sit Level of Assistance 1: Minimum assistance (pt. uses immobilizer to assist in advancing RLE to EOB. Min. A is given when lowering to the floor for stability.) Bed Mobility Comments 1: HOB is elevated and uses bedrail to assists Transfers Transfer: Yes Transfer 1 Transfer From 1: Sit Transfer Type 1: To and from Transfer to 1: Stand Transfer Device 1: rolling walker Transfer Level of Assistance 1: Contact guard Modalities Cryoth (more content not included)...[facility] 01-01-2022 NoteSubjective Patient endorses less pain to his right knee this morning. He is frustrated as he does not want to proceed with a picc line and would not like to wait 6 weeks to get a new knee as he believes there is no infection in his knee since his cultures post op have been no growth. Objective Patient Vitals for the past 24 hrs: BP Temp Temp src Pulse Resp SpO2 Weight 01/01/22 0355 -- -- -- -- -- -- (!) 138 kg (303 lb 2.1 oz) 12/31/21 2355 (!) 164/91 36.9 ???C (98.4 ???F) Oral 70 19 96 % -- 12/31/21 2210 (!) 178/98 36.9 ???C (98.5 ???F) Oral 79 19 98 % -- 12/31/21 1930 (!) 184/96 36.9 ???C (98.5 ???F) Oral 89 19 96 % -- 12/31/21 1700 (!) 158/92 36.8 ???C (98.2 ???F) Oral 80 16 94 % -- 12/31/21 0715 154/90 36.7 ???C (98.1 ???F) Oral 75 16 98 % -- Physical Exam Gen: Alert, no acute distress. RLE: Dressing is clean, dry and intact. Fires ankle df/pf. SILT in SP/DP/T. DP pulse intact. Lab Results Component Value Date NA 139 12/31/2021 K 3.7 12/31/2021 CL 107 12/31/2021 ANIONGAP 5 (L) 12/31/2021 BUN 14 12/31/2021 CREATININE 1.30 12/31/2021 CALCIUM 8.4 (L) 12/31/2021 No results found for: BILITOT, BILIDIR, ALKPHOS, AST, ALT, PROT, ALBUMIN Lab Results Component Value Date WBC 6.63 12/31/2021 RBC 3.79 (L) 12/31/2021 HGB 11.4 (L) 12/31/2021 HCT 35.3 (L) 12/31/2021 MCV 93.1 12/31/2021 MCH 30.1 12/31/2021 MCHC 32.3 12/31/2021 RDW 13.3 12/31/2021 NEUTOPHILPCT 63.2 12/31/2021 LYMPHOPCT 21.7 12/31/2021 MONOPCT 9.2 12/31/2021 EOSPCT 4.8 12/31/2021 BASOPCT 0.5 12/31/2021 NEUTROABS 4.19 12/31/2021 LYMPHSABS 1.44 12/31/2021 MONOSABS 0.61 12/31/2021 EOSABS 0.32 12/31/2021 BASOSABS 0.03 12/31/2021 PLT 228 12/31/2021 NRBC 0.0 12/31/2021 === Imaging Orders, Last 24 Hours === XR KNEE 1-2 VIEWS RIGHT - Impression - Right total knee arthroplasty revision. Arthroplasty hardware removed and a cement spacer and 2 small metal rods placed tibia and fibula. There is some immediate postprocedure soft tissue air and a soft tissue swelling Electronically signed: Todd Ashby. Assessment/Plan Active Problems: Chronic instability of right knee Loose right total knee arthroplasty ([facility]) 56 yo m with R knee stage 1 revision 12/27/21. 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 We explained this to the patient but he is adamant that he does not have an infection since his cultures are negative. We believe he would benefit from a proper stage 1 and 2 revision with at least 6 weeks of IV antibiotics but he is adamant that he does not need this. -NWB RLE in Knee brace. -ID abs per ID. -Appreciate med management. -Pain meds. -DVT proph with eliquis. -DC pending snf placement and abs. [id number] NoteSubjective Patient endorses pain to right knee this morning. He was able to get some sleep overnight. Objective Patient Vitals for the past 24 hrs: BP Temp Temp src Pulse Resp SpO2 12/30/21 2330 (!) 165/95 -- -- 77 -- -- 12/30/21 1630 (!) 168/101 36.8 ???C (98.3 ???F) Oral 72 16 96 % Physical Exam Gen: Alert, no acute distress. RLE: Dressing is clean, dry and intact. Fires ankle df/pf. SILT in SP/DP/T. DP pulse intact. Lab Results Component Value Date NA 139 12/28/2021 K 5.1 12/28/2021 CL 107 12/28/2021 ANIONGAP 7 12/28/2021 BUN 23 12/28/2021 CREATININE 1.34 (H) 12/28/2021 CALCIUM 8.4 (L) 12/28/2021 No results found for: BILITOT, BILIDIR, ALKPHOS, AST, ALT, PROT, ALBUMIN Lab Results Component Value Date WBC 12.19 (H) 12/28/2021 RBC 3.48 (L) 12/28/2021 HGB 10.5 (L) 12/28/2021 HCT 32.1 (L) 12/28/2021 MCV 92.2 12/28/2021 MCH 30.2 12/28/2021 MCHC 32.7 12/28/2021 RDW 13.2 12/28/2021 NEUTOPHILPCT 65.4 12/01/2021 LYMPHOPCT 20.2 12/01/2021 MONOPCT 12.3 (H) 12/01/2021 EOSPCT 1.5 12/01/2021 BASOPCT 0.4 12/01/2021 NEUTROABS 3.39 12/01/2021 LYMPHSABS 1.05 (L) 12/01/2021 MONOSABS 0.64 12/01/2021 EOSABS 0.08 12/01/2021 BASOSABS 0.02 12/01/2021 PLT 235 12/28/2021 NRBC 0.0 12/01/2021 === Imaging Orders, Last 24 Hours === XR KNEE 1-2 VIEWS RIGHT - Impression - Right total knee arthroplasty revision. Arthroplasty hardware removed and a cement spacer and 2 small metal rods placed tibia and fibula. There is some immediate postprocedure soft tissue air and a soft tissue swelling Electronically signed: Todd Ashby. Assessment/Plan Active Problems: Chronic instability of right knee Loose right total knee arthroplasty (CMS/HCC) 56 yo m with R knee stage 1 revision 12/27/21. -NWB RLE in Knee brace. -ID abs per ID. -Appreciate med management. -Pain meds. -DVT proph with eliquis. -DC pending snf placement. Dave Reyes [id number]22 NoteOccupational Therapy Occupational Therapy Treatment Patient Name: Sukhdeep Simental : 1965 Today's Date: 12/30/2021 Pt would benefit from SNF to increase overall strength, endurance, balance, activity tolerance and safety awareness necessary to promote ease with safe return to highest level of ind with adls/transfers while reducing risk for falls. 12/30/21 1433 OT Last Visit OT Received On 12/30/21 General Subjective Pt states, I looked it up myself, I can put weight on this leg.. pt demos poor return of RLE NWB prec Family/Caregiver Present No Precautions LE Weight Bearing Status Right;NWB Pain Assessment Pain Score 9 Pain Type Chronic pain Pain Location Back Cognition Overall Cognitive Status WFL Orientation Level Oriented X4 Safety Judgment Decreased awareness of need for safety Awareness of Errors Assistance required to identify errors made;Decreased awareness of errors Deficits Decreased awareness of deficits Problem Solving Assistance required to generate solutions;Assistance required to implement solutions Cognition Comments pt demos difficulty adhering to NWB prec this date and states he told the doctor that he looked up his surgery and that he is allowed to weightbear. pt is advised to follow doctors order of NWB with P return LE Dressing LE Dressing Yes LE Dressing Adaptive Equipment Sock aide;It Engineer Pants Level of Assistance Minimum assistance Sock Level of Assistance Minimum assistance LE Dressing Where Assessed Other (Comment) (seated at recliner chair) LE Dressing Comments pt attempting to place weight through RLE when pulling shorts over hips despite education from senior underwriter. pt was encouraged to sit to complete dressing task safely but pt deffered Toileting Toileting Level of Assistance Close supervision Where Assessed Toilet Toileting Comments completed in standing at RW Functional Standing Tolerance Time 6 min Activity functional mobility and urinating at toilet with use of RW for support Dynamic Standing Balance Dynamic Standing-Balance Support Right upper extremity supported;Left upper extremity supported Dynamic Standing-Balance Reaching for objects;Lateral lean Dynamic Standing Balance-Level of Assistance Contact guard Dynamic Standing-Comments use of RW, increased vcs to adhere to NWB prec Transfers Transfer Yes Transfer 1 Transfer From 1 Chair with arms Transfer Type 1 To and from Transfer to 1 Chair with arms Technique 1 Sit to stand;Stand to sit Transfer Device 1 rolling walker Transfer Level of Assistance 1 Contact guard Trials/Comments 1 pt continues to require mod vcs to adhere to NWB prec. pt demos ability to follow precs but believes he does not need to follow d/t looking up the procedure online. OT Assessment OT Impairments Decreased ADL status;Decreased safe judgment during ADL;Decreased endurance;Decreased functional mobility;Decreased IADLs Evaluation/Treatment Tolerance Patient tolerated treatment well Medical Staff Made Aware Yes Plan Level of assist 1 assist OT Plan Skilled OT OT Discharge Recommendations intermediate facility placement 12/30/21 1700 AM-PAC 6 Clicks Putting on and taking off regular lower body clothing? 3 Bathing(Including washing,rinsing,drying)? 3 Toileting, which includes using the toilet,bedpan,or urinal? 3 Putting on and taking off regular upper body clothing? 4 Taking care of personal grooming such as brushing teeth? 3 Eating meals? 4 Total Score OT [facility] 20 12/30/21 1713 Time Calculation Start Time 1433 Stop Time 1509 Time Calculation (min) 36 min OT Therapeutic Procedures Time Entry Self Care/Home Management (ADLs) Time Entry 20 Therapeutic Activity Time Entry 16 [facility]11-05-2022 NoteSent updates to [facility]. [facility] reported ID made new recommendations. Awaiting precert. Pt has DC orders.[facility]11-05-2022 Note Attestation signed by Gianni Richter DO at 12/30/2021 9:27 PM I performed a history and physical examination of the patient Sukhdeep Simental, I independently reviewed the laboratory work and imaging as well as other studies mentioned in the above note; I have seen the patient along with and discussed the management with the Infectious Diseases fellow, Asim Alfonso MD I have reviewed the above note, I agree with the findings and plan of care with the following additions and corrections: Agree with above. Cultures from stage 1 procedure have remained negative. He was noted to be on antibiotics prior to procedure with about a two week gap. He is reluctant to do 6 weeks of IV therapy, dalbavancin infusion is a reasonable option. If this is not approved then oral doxycyline would be an option Thank you for allowing us to participate in the care of this patient. . Infectious Diseases - Progress Note Our team prefers to use [employer] for communication during business hours (8 AM - 5 PM). We make every effort to keep the Treatment Team in [facility] updated. If I do not respond within 30 minutes, please page me with urgent issues. From 5 PM - 8 AM, please page or call through the track moving machine operator for urgent issues. 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 Recommendations: Cultures negative thus far, does have a lot of leukocytes. Of note pt was on amoxicillin and oral cephalosporin for about 4 weeks (2 weeks prior to this infection). We will continue with empiric vancomycin and Discontinue ceftriaxone as unlikely to be gram-negative organism causing current picture. Cultures have been negative thus far patient does not want to do 6 weeks of IV therapy at this time okay to give dalbavancin x2 outpatient if needed. Scripts in epic chart. If not approved can do oral therapy with doxycycline as an alternative option. No PICC line ordered for the above mentioned reasoning by pt. ID will continue to follow him. Subjective Interval History: Patient seen and examined at bedside. No overnight events. No fevers no chills. No diarrhea. Objective Physical Examination : BP (!) 176/98 Pulse 68 Temp 36.6 ???C (97.8 ???F) (Oral) Resp 18 Ht 1.727 m (5' 8 ) Wt (!) 140 kg (308 lb) SpO2 97% BMI 46.83 kg/m??? Temperature Range: Temp: 36.6 ???C (97.8 ???F) Temp Av.7 ???C (98 ???F) Min: 36.6 ???C (97.8 ???F) Max: 36.8 ???C (98.2 ???F) General Appearance: Awake, alert, and in no apparent distress Head: Normocephalic, without obvious abnormality, atraumatic Eyes: Pupils equal, round, reactive, to light and accommodation; extraocular movements intact; sclera anicteric; conjunctivae pink ENT: Oropharynx clear, without erythema, exudate, or thrush. Neck: Supple, without lymphadenopathy. Pulmonary/Chest: Clear to auscultation, without wheezes, rales, or rhonchi Cardiovascular: Regular rate and rhythm without murmurs, rubs, or gallops. Abdomen: Soft, nontender, nondistended. Extremities: Right knee wrapped in Rohan bandage Neurologic: Bulk and tone are normal. No atrophy is noted. Moves extremities.Sensation grossly intact Skin: No rash or lesions. Laboratory data: I have independently reviewed the following labs: Results from last 7 days Lab Units 12/28/21 0416 WBC AUTO 10*3/uL 12.19* HEMOGLOBIN g/dL 10.5* HEMATOCRIT % 32.1* MCV fL 92.2 PLATELETS AUTO 10*3/uL 235 Results from last 7 days Lab Units 12/28/21 0416 12/27/21 1845 POTASSIUM mmol/L 5.1 4.4 CHLORIDE mmol/L 107 104 CO2 mmol/L 25 25 BUN mg/dL 23 23 CREATININE mg/dL 1.34* 1.49* GLUCOSE mg/dL 208* 246* CALCIUM mg/dL 8.4* 8.7 Results from last 7 days Lab Units 12/28/21 0416 SED RATE mm/hr 53* CRP mg/L 14.2* No lab exists for component: COLOR, TURBIDITY, SPECIFICGRA, PHURINE, LEUKOCYTE, PROTEIN, BLOODHGB, RBCELLS, RENALEPITH No lab exists for component: TOXIGENICC Imaging Studies: I have personally reviewed this study. Cultures: Negative thus far Medications: acetaminophen, 1,000 mg, oral, q8h apixaban, 2.5 mg, oral, BID bumetanide, 1 mg, oral, Daily docusate sodium, 100 mg, oral, BID doxazosin, 4 mg, oral, Daily famotidine, 20 mg, oral, Daily ferrous sulfate, 325 mg, oral, BID with meals insulin aspart, 0-20 Units, subcutaneous, TID with meals And insulin aspart, 0-20 Units, subcutaneous, Nightly insulin NPH (Isophane), 5 Units, subcutaneous, Once losartan, 25 mg, oral, Daily Oxygen Therapy, , inhalation, Continuous pantoprazole, 4 (more content not included)...[facility]11-05-2022 NoteSubjective Patient endorses pain to right knee this morning and lower back. He says he has chronic low back pain and that the hospital bed is aggravating his back pain. Objective Patient Vitals for the past 24 hrs: BP Temp Temp src Pulse Resp SpO2 Weight 12/30/21 0700 (!) 176/98 36.6 ???C (97.8 ???F) Oral 68 18 97 % -- 12/30/21 0330 -- -- -- -- -- -- (!) 140 kg (308 lb) 12/29/21 2140 (!) 160/94 36.8 ???C (98.2 ???F) Oral 62 16 96 % -- 12/29/21 1200 -- -- -- -- -- 92 % -- Physical Exam Gen: Alert, no acute distress. RLE: Dressing is clean, dry and intact. Fires ankle df/pf. SILT in SP/DP/T. DP pulse intact. Lab Results Component Value Date NA 139 12/28/2021 K 5.1 12/28/2021 CL 107 12/28/2021 ANIONGAP 7 12/28/2021 BUN 23 12/28/2021 CREATININE 1.34 (H) 12/28/2021 CALCIUM 8.4 (L) 12/28/2021 No results found for: BILITOT, BILIDIR, ALKPHOS, AST, ALT, PROT, ALBUMIN Lab Results Component Value Date WBC 12.19 (H) 12/28/2021 RBC 3.48 (L) 12/28/2021 HGB 10.5 (L) 12/28/2021 HCT 32.1 (L) 12/28/2021 MCV 92.2 12/28/2021 MCH 30.2 12/28/2021 MCHC 32.7 12/28/2021 RDW 13.2 12/28/2021 NEUTOPHILPCT 65.4 12/01/2021 LYMPHOPCT 20.2 12/01/2021 MONOPCT 12.3 (H) 12/01/2021 EOSPCT 1.5 12/01/2021 BASOPCT 0.4 12/01/2021 NEUTROABS 3.39 12/01/2021 LYMPHSABS 1.05 (L) 12/01/2021 MONOSABS 0.64 12/01/2021 EOSABS 0.08 12/01/2021 BASOSABS 0.02 12/01/2021 PLT 235 12/28/2021 NRBC 0.0 12/01/2021 === Imaging Orders, Last 24 Hours === XR KNEE 1-2 VIEWS RIGHT - Impression - Right total knee arthroplasty revision. Arthroplasty hardware removed and a cement spacer and 2 small metal rods placed tibia and fibula. There is some immediate postprocedure soft tissue air and a soft tissue swelling Electronically signed: Todd Ashby. Assessment/Plan Active Problems: Chronic instability of right knee Loose right total knee arthroplasty (CMS/HCC) 56 yo m with R knee stage 1 revision 12/27/21. -NWB RLE in Knee brace. -ID abs per ID. -Appreciate med management. -Pain meds. -DVT proph with eliquis. Dave Reyes [id number]11-[facility]-2022 NotePhysical Therapy Physical Therapy Treatment Patient Name: Sukhdeep Simental : 1965 Today's Date: 12/30/2021 Patient Active Problem List Diagnosis Chronic instability of right knee Loose right total knee arthroplasty (CMS/HCC) Quadriceps weakness Lumbosacral radiculopathy Encounter for pre-operative laboratory testing HTN (hypertension) Diabetes mellitus, type 2 (CMS/HCC) Gastroesophageal reflux disease Morbid obesity (CMS/HCC) ELIDA (obstructive sleep apnea) Anxiety Chronic kidney disease Pain Pain Assessment Pain Assessment: 0-10 Pain Score: 9 Pain Type: Chronic pain Pain Location: Back Pain Frequency: Constant/continuous Pain Onset: Ongoing Clinical Progression: Not changed Pain Interventions: Repositioned, Cold applied Objective General Visit Information: PT Last Visit PT Received On: 12/30/21 Response to Previous Treatment: Patient with no complaints from previous session. General Family/Caregiver Present: No Subjective: Pt. seen bedside for PT session this a.m. Upon arrival, pt. in bed and reports sig. back and right knee pain. Pt. reports that majority of pain is in the back at this time. Pt. reports that this is chronic. Pt. is overall pleasant and agreeable to activities as able. RN okays session including up to bedside chair. Precautions Precautions LE Weight Bearing Status: Right, NWB Medical Precautions: fall risk, immobilizer Static Sitting Balance Static Sitting Balance Static Sitting-Balance Support: Unilateral upper extremity supported, Feet supported Static Sitting-Level of Assistance: Close supervision Dynamic Sitting Balance Dynamic Sitting Balance Dynamic Sitting-Balance Support: Unilateral upper extremity supported, Feet supported Dynamic Sitting Balance-Level of Assistance: Close supervision Static Standing Balance Static Standing Balance Static Standing-Balance Support: Right upper extremity supported, Left upper extremity supported (UEs supported through RW) Static Standing-Level of Assistance: Contact guard Dynamic Standing Balance Dynamic Standing Balance Dynamic Standing-Balance Support: Right upper extremity supported, Left upper extremity supported (UEs supported through RW) Dynamic Standing Balance-Level of Assistance: Contact guard General Assessments: Activity Tolerance Ambulation comments: Pt. able to ambulate within his room including into the bathroom and mostly maintains NWBing through RLE. Pt. is noted to occassionally place toe down for stability. Pt. reminded of need to remain NWBing. Endurance: Stage III Activity Tolerance Comments: Pt. primarily limited by pain at this time. Cognition Overall Cognitive Status: Within Functional Limits Arousal/Alertness: Appropriate responses to stimuli Orientation Level: Oriented X4 Following Commands: Follows all commands and directions without difficulty Safety Judgment: Good awareness of safety precautions Awareness of Errors: Assistance required to identify errors made Attention Span: Appears intact Memory: Appears intact Problem Solving: Assistance required to identify errors made Treatment: Therapeutic Exercise Therapeutic Exercise Activity 1: RLE (AROM) ankle pumps x 10 reps. ea. while long sitting in bedside chair Therapeutic Exercise Activity 2: Right heel cord stretches 4 x 20 ea. while long sitting in bedside chair Therapeutic Exercise Acitivity 3: Right (AAROM) SLRs and hip abd/add x 5 reps. ea. while long sitting in bedside chair Balance/Neuromuscular Re-Education Balance/Neuromuscular Re-Education Activity 1: Pt. stands for ~3 mins. at toilet to urinate using RW for stability. Ambulation Ambulation: Yes Ambulation 1 Surface 1: Level tile Device 1: Rolling walker Assistance 1: Contact guard Quality of Gait 1: Pt. mostly able to maintain NWBing through RLE but is noted to occassionally place toe down for stability. Verbal reminder given of NWBing status. Mild unsteadiness is noted, but no LOB. Comments/Distance (ft) 1: 16' x 2 Bed Mobility Bed Mobility: Yes Bed Mobility 1 Bed Mobility From 1: Long sit Bed Mobility Type 1: To Bed Mobility to 1: Short sit Level of Assistance 1: Minimum assistance (min. A given to advance RLE to EOB) Bed Mobility Comments 1: HOB is elevated and uses bedrail to assist Transfers Transfer: Yes Transfer 1 Transfer From 1: Sit Transfer Type 1: To Transfer to 1: Stand Transfer Device 1: rolling walker Transfer Level of Assistance 1: Contact guard Modalities Cryotherapy (Minutes/Location/Skin Check): cold pack placed to right knee at end of session Outcome Assessments 6 Clicks (Mobility) Impairment Codes: Fracture/Other ortho Help from another person turning from your back to your side while in a flat bed without using bedrails: A little Help from another person moving from lying on your back to sitting on the side of a flat bed (more content not included)...[facility]. Updated pt and updated AVS.[facility]11-04-2022 NoteThis report has been cancelled.[facility]11-04-2022 Note Attestation signed by Kb Cordova MD at 12/29/2021 2:27 PM I personally saw and examined the patient on the same date of service as resident/fellow . I discussed the findings and therapeutic plan with the resident/fellow . I agree with the documentation, except for any edits/updates below. Teaching Physician's Revisions: agree with plan of care and documentation Subjective Patient was seen and examined at the bedside this morning. Has significant pain over the right side of the lower limb 11/04 slightly controlled with med's. No acute events overnight reported. Vitally stable. Objective Patient Vitals for the past 24 hrs: BP Temp Temp src Pulse Resp SpO2 12/29/21 1009 164/89 36.7 ???C (98.1 ???F) Oral 85 18 97 % 12/29/21 0730 144/84 36.7 ???C (98.1 ???F) Oral 91 18 96 % 12/28/21 1953 148/70 36.9 ???C (98.5 ???F) Oral 74 16 92 % Physical Exam Constitutional: Appearance: Normal appearance. He is normal weight. HENT: Head: Normocephalic and atraumatic. Right Ear: Tympanic membrane, ear canal and external ear normal. Left Ear: Tympanic membrane, ear canal and external ear normal. Nose: Nose normal. Mouth/Throat: Mouth: Mucous membranes are moist. Pharynx: Oropharynx is clear. Eyes: Extraocular Movements: Extraocular movements intact. Conjunctiva/sclera: Conjunctivae normal. Pupils: Pupils are equal, round, and reactive to light. Cardiovascular: Rate and Rhythm: Normal rate and regular rhythm. Pulses: Normal pulses. Heart sounds: Normal heart sounds. Pulmonary: Effort: Pulmonary effort is normal. Breath sounds: Normal breath sounds. Abdominal: General: Abdomen is flat. Bowel sounds are normal. Palpations: Abdomen is soft. Musculoskeletal: General: Normal range of motion. Cervical back: Normal range of motion and neck supple. Skin: General: Skin is warm and dry. Neurological: General: No focal deficit present. Mental Status: He is alert and oriented to person, place, and time. Mental status is at baseline. Psychiatric: Mood and Affect: Mood normal. Behavior: Behavior normal. Thought Content: Thought content normal. Judgment: Judgment normal. Lab Results Component Value Date NA 139 12/28/2021 K 5.1 12/28/2021 CL 107 12/28/2021 ANIONGAP 7 12/28/2021 BUN 23 12/28/2021 CREATININE 1.34 (H) 12/28/2021 CALCIUM 8.4 (L) 12/28/2021 No results found for: BILITOT, BILIDIR, ALKPHOS, AST, ALT, PROT, ALBUMIN Lab Results Component Value Date WBC 12.19 (H) 12/28/2021 RBC 3.48 (L) 12/28/2021 HGB 10.5 (L) 12/28/2021 HCT 32.1 (L) 12/28/2021 MCV 92.2 12/28/2021 MCH 30.2 12/28/2021 MCHC 32.7 12/28/2021 RDW 13.2 12/28/2021 NEUTOPHILPCT 65.4 12/01/2021 LYMPHOPCT 20.2 12/01/2021 MONOPCT 12.3 (H) 12/01/2021 EOSPCT 1.5 12/01/2021 BASOPCT 0.4 12/01/2021 NEUTROABS 3.39 12/01/2021 LYMPHSABS 1.05 (L) 12/01/2021 MONOSABS 0.64 12/01/2021 EOSABS 0.08 12/01/2021 BASOSABS 0.02 12/01/2021 PLT 235 12/28/2021 NRBC 0.0 12/01/2021 === Imaging Orders, Last 24 Hours === XR KNEE 1-2 VIEWS RIGHT - Impression - Right total knee arthroplasty revision. Arthroplasty hardware removed and a cement spacer and 2 small metal rods placed tibia and fibula. There is some immediate postprocedure soft tissue air and a soft tissue swelling Electronically signed: Todd Ashby. Assessment/Plan Active Problems: Chronic instability of right knee Loose right total knee arthroplasty ([facility]) #Total knee arthroplasty debridement and hardware removal Suspicious for periprosthetic joint infection - ID are following,recommended Vancomycin and ceftriaxone. #Non-insulin dependent diabetes mellitus - Given 18mg of dexamethasone during surgery. - blood glucose looks more controlled with sliding scale lispro,CW - Would not restart home pioglitazone -If greater than 300, give one time dose of NPH. -Diet adjusted to diabetic diet. #Depression/Anxiety - CW home trazodone #Hyperlipidemia - CW home lipitor #Low testosterone levels - Last dose of testosterone was on Saturday12/24/2021. #Essential hypertension -CW home doxazosin 4 mg and losartan 25 mg. -diet with sodium restrictions. -keep close monitoring. #Chronic kidney disease stage II - Baseline around 1.4 - Monitor with BMP. #GERD - CW home sucralfate, protonix #BPH - CW home flomax Melina Hidalgo MD PGY 2,internal medicine resident.[facility]11-04-2022 NoteInfectious Diseases - Progress Note Our team prefers to use [employer] for communication during business hours (8 AM - 5 PM). We make every effort to keep the Treatment Team in [employer] updated. If I do not respond within 30 minutes, please page me with urgent issues. From 5 PM - 8 AM, please page or call through the track moving machine operator for urgent issues. 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 Recommendations: Cultures negative thus far, does have a lot of leukocytes, will follow up cultures. Of note pt was on amoxicillin and oral cephalosporin for about 4 weeks (2 weeks prior to this infection). We will continue with empiric vancomycin and ceftriaxone If patient does not grow any organism, will likely need empiric treatment with approximately 6 weeks of IV antibiotics. However pt is very reluctant to go for 6 weeks treatment if cx are negative as he feel it would be a huge deductible for him to pay for everything. He is okay with getting dalbavancin x 2 outpatient if needed. No PICC line ordered for the above mentioned reasoning by pt. ID will continue to follow him. Subjective Interval History: Patient seen and examined at bedside. No overnight events. No fevers no chills. No diarrhea. Continues to have some pain in the right lower extremity. Objective Physical Examination : BP 144/84 Pulse 91 Temp 36.7 ???C (98.1 ???F) (Oral) Resp 18 Ht 1.727 m (5' 8 ) Wt (!) 140 kg (308 lb 6.8 oz) SpO2 96% BMI 46.90 kg/m??? Temperature Range: Temp: 36.7 ???C (98.1 ???F) Temp Av.8 ???C (98.3 ???F) Min: 36.7 ???C (98.1 ???F) Max: 36.9 ???C (98.5 ???F) General Appearance: Awake, alert, and in no apparent distress Head: Normocephalic, without obvious abnormality, atraumatic Eyes: Pupils equal, round, reactive, to light and accommodation; extraocular movements intact; sclera anicteric; conjunctivae pink ENT: Oropharynx clear, without erythema, exudate, or thrush. Neck: Supple, without lymphadenopathy. Pulmonary/Chest: Clear to auscultation, without wheezes, rales, or rhonchi Cardiovascular: Regular rate and rhythm without murmurs, rubs, or gallops. Abdomen: Soft, nontender, nondistended. Extremities: Right knee wrapped in Rohan bandage Neurologic: Bulk and tone are normal. No atrophy is noted. Moves extremities.Sensation grossly intact Skin: No rash or lesions. Laboratory data: I have independently reviewed the following labs: Results from last 7 days Lab Units 12/28/21 0416 WBC AUTO 10*3/uL 12.19* HEMOGLOBIN g/dL 10.5* HEMATOCRIT % 32.1* MCV fL 92.2 PLATELETS AUTO 10*3/uL 235 Results from last 7 days Lab Units 12/28/21 0416 12/27/21 1845 POTASSIUM mmol/L 5.1 4.4 CHLORIDE mmol/L 107 104 CO2 mmol/L 25 25 BUN mg/dL 23 23 CREATININE mg/dL 1.34* 1.49* GLUCOSE mg/dL 208* 246* CALCIUM mg/dL 8.4* 8.7 Results from last 7 days Lab Units 12/28/21 0416 SED RATE mm/hr 53* CRP mg/L 14.2* No lab exists for component: COLOR, TURBIDITY, SPECIFICGRA, PHURINE, LEUKOCYTE, PROTEIN, BLOODHGB, RBCELLS, RENALEPITH No lab exists for component: TOXIGENICC Imaging Studies: I have personally reviewed this study. Cultures: Negative thus far Medications: acetaminophen, 1,000 mg, oral, q8h apixaban, 2.5 mg, oral, BID bumetanide, 1 mg, oral, Daily cefTRIAXone, 2 g, intravenous, q24h docusate sodium, 100 mg, oral, BID doxazosin, 4 mg, oral, Daily famotidine, 20 mg, oral, Daily ferrous sulfate, 325 mg, oral, BID with meals insulin aspart, 0-20 Units, subcutaneous, TID with meals And insulin aspart, 0-20 Units, subcutaneous, Nightly insulin NPH (Isophane), 5 Units, subcutaneous, Once losartan, 25 mg, oral, Daily Oxygen Therapy, , inhalation, Continuous pantoprazole, 40 mg, oral, Nightly simvastatin, 10 mg, oral, Nightly sucralfate, 1 g, oral, BID AC tamsulosin, 0.4 mg, oral, Daily traZODone, 50 mg, oral, Nightly vancomycin, 1.25 g, intravenous, q12h This progress note was completed using a voice rubber stamp maker system. Every effort was made to ensure accuracy; however, inadvertent computerized rubber stamp maker errors may be present. . Erica Pompa MD, [facility] Infectious Diseases Pager: [phone] Contact us via [employer] Chat or page through the [facility]11-04-2022 NotePharmacy Dosing Service - Vancomycin Follow Up Note Sukhdeep Simental is a 56 y.o. male admitted for No Principal Problem: There is no principal problem currently on the Problem List. Please update the Problem List and refresh.. Patient has a past medical history of Allergic rhinitis, Anemia, Anxiety, BPH (benign prostatic hyperplasia), CKD (chronic kidney disease), Diabetes (CMS/HCC), GERD (gastroesophageal reflux disease), Hyperlipidemia, Hyperparathyroidism (CMS/HCC), Hypertension, Lumbar pain, OA (osteoarthritis), Obesity, Obstetric pulmonary blood clot embolism, antepartum, and Sleep apnea. Pharmacy has been consulted for vancomycin dosing and monitoring for R knee periprosthetic infection . AUC 400-600 mg*hr/L and trough 10-20 mcg/mL Current Antimicrobial Regimens: Anti-infectives (From admission, onward) Start Dose/Rate Route Frequency Ordered Stop 12/27/212199 vancomycin IVPB 1 g 1 g 200 mL/hr over 60 Minutes intravenous Every 12 hours 12/27/21200212/30/21215812/27/211999 cefTRIAXone (Rocephin) IVPB 2 g in NS 50 mL (Mini-Bag Plus) 2 g 100 mL/hr over 30 Minutes intravenous Every 24 hours 12/27/21 19301/01/221958 Labs and Renal Function Total body weight: (!) 140 kg (308 lb 6.8 oz) [place] body weight: 68.4 kg (150 lb 12.7 oz) Adjusted ideal body weight: 97 kg (213 lb 13.5 oz) Body mass index is 46.9 kg/m???. Lab Results Component Value Date WBC 12.19 (H) 12/28/2021 WBC 5.19 12/01/2021 WBC 11,976 12/19/2020 Recent Labs 12/27/21 1845 12/28/21 0416 BUN 23 23 CREATININE 1.49* 1.34* BCR 15.44 17.16 Serum creatinine: 1.34 mg/dL (H) 12/28/21 0416 Estimated creatinine clearance: 82.4 mL/min (A) I/O last 3 completed shifts: In: 2299 (16.4 mL/kg) [P.O.:360; I.V.:1239 (8.9 mL/kg); IV Piggyback:700] Out: 1220 (8.7 mL/kg) [Urine:1220 (0.2 mL/kg/hr)] Weight: 139.9 kg Visit Vitals BP 148/70 Pulse 74 Temp 36.9 ???C (98.5 ???F) (Oral) Resp 16 Estimated Pharmacokinetic Parameters: Weight used to calculate CrCl and Ke: adjusted body weight (due to obesity) Last Dose: 1000 mg Date: 12/28/2021 Time: 23:13 Vancomycin Tr Date/Time Value Ref Range Status 12/28/2021 07:51 PM 13.1 5.0 - 20.0 ug/mL Final Vancomycin Pk Date/Time Value Ref Range Status 12/29/2021 02:06 AM 20.6 20.0 - 50.0 ug/mL Final Pharmacokinetic Evaluation: Ke 0.079 hr-1 T1/2 8.8 hr Peak 23.9 mcg/mL Trough 10.0 mcg/mL Vd 65.9 L (0.5 L/kg) Cl 5.18 hr/L (86.4 mL/min) AUC 385.8 mcg*hr/mL Microbiology: Results for orders placed or performed during the hospital encounter of 12/27/21 Tissue culture Specimen: Patella; Tissue Result Value Ref Range Culture No growth at 18-24 hours Gram Stain Result Zero Polymorphonuclear leukocytes Gram Stain Result No organisms seen Tissue culture Specimen: Tibia; Tissue Result Value Ref Range Culture No growth at 18-24 hours Gram Stain Result Moderate Polymorphonuclear leukocytes Gram Stain Result No organisms seen Tissue culture Specimen: Femur; Tissue Result Value Ref Range Culture No growth at 18-24 hours Gram Stain Result Many Polymorphonuclear leukocytes Gram Stain Result No organisms seen Body fluid culture Specimen: Knee; Synovial Fluid Result Value Ref Range Culture No growth at 18-24 hours Gram Stain Result Many Polymorphonuclear leukocytes (A) Gram Stain Result No organisms seen (A) Fungal culture Specimen: Patella; Tissue Result Value Ref Range Fungal Smear No fungal elements seen Fungal culture Specimen: Tibia; Tissue Result Value Ref Range Fungal Smear No fungal elements seen Fungal culture Specimen: Femur; Tissue Result Value Ref Range Fungal Smear No fungal elements seen Anaerobic culture Specimen: Patella; Tissue Result Value Ref Range Anaerobic Culture No anaerobes isolated at 18-24 hours Anaerobic culture Specimen: Tibia; Tissue Result Value Ref Range Anaerobic Culture No anaerobes isolated at 18-24 hours Anaerobic culture Specimen: Femur; Tissue Result Value Ref Range Anaerobic Culture No anaerobes isolated at 18-24 hours Anaerobic culture Specimen: Knee; Synovial Fluid Result Value Ref Range Anaerobic Culture No anaerobes isolated at 18-24 hours Assessment / Comments: - AUC of 385.8 mcg*hr/mL is subtherapeutic, goal range 400-600. Patient is hemodynamically stable and afebrile. - Cultures so far no growth - Current risk factors for nephrotoxicity: Baseline renal dysfunction - Comments on renal function / baseline serum creatinine: stable Plan: - Modify regimen to vancomycin 1250 mg every 12 hours for a predicted AUC of 482.2 mg*hr/L and trough of 13.3 mcg/mL - Plan to check serum peak and trough levels in 5-7 days or sooner if change in renal function - Check BUN/SCr every other day -Pharmacy will follow up daily on culture and sensitivity results and renal function -Please do not hesitate to contact us with comments or questions Thank you, Ly (more content not included)...[facility]11-04-2022 NoteSubjective Patient endorses pain to right knee this morning. He seems to be doing well overall however. Objective Patient Vitals for the past 24 hrs: BP Temp Temp src Pulse Resp SpO2 12/28/211952 148/70 36.9 ???C (98.5 ???F) Oral 74 16 92 % 12/28/21826 127/83 36.4 ???C (97.5 ???F) Oral 65 18 97 % Physical Exam Gen: Alert, no acute distress. RLE: Dressing is clean, dry and intact. Fires ankle df/pf. SILT in SP/DP/T. DP pulse intact. Lab Results Component Value Date NA 139 12/28/2021 K 5.1 12/28/2021 CL 107 12/28/2021 ANIONGAP 7 12/28/2021 BUN 23 12/28/2021 CREATININE 1.34 (H) 12/28/2021 CALCIUM 8.4 (L) 12/28/2021 No results found for: BILITOT, BILIDIR, ALKPHOS, AST, ALT, PROT, ALBUMIN Lab Results Component Value Date WBC 12.19 (H) 12/28/2021 RBC 3.48 (L) 12/28/2021 HGB 10.5 (L) 12/28/2021 HCT 32.1 (L) 12/28/2021 MCV 92.2 12/28/2021 MCH 30.2 12/28/2021 MCHC 32.7 12/28/2021 RDW 13.2 12/28/2021 NEUTOPHILPCT 65.4 12/01/2021 LYMPHOPCT 20.2 12/01/2021 MONOPCT 12.3 (H) 12/01/2021 EOSPCT 1.5 12/01/2021 BASOPCT 0.4 12/01/2021 NEUTROABS 3.39 12/01/2021 LYMPHSABS 1.05 (L) 12/01/2021 MONOSABS 0.64 12/01/2021 EOSABS 0.08 12/01/2021 BASOSABS 0.02 12/01/2021 PLT 235 12/28/2021 NRBC 0.0 12/01/2021 === Imaging Orders, Last 24 Hours === XR KNEE 1-2 VIEWS RIGHT - Impression - Right total knee arthroplasty revision. Arthroplasty hardware removed and a cement spacer and 2 small metal rods placed tibia and fibula. There is some immediate postprocedure soft tissue air and a soft tissue swelling Electronically signed: Todd Ashby. Assessment/Plan Active Problems: Chronic instability of right knee Loose right total knee arthroplasty ([facility]) 56 yo m with R knee stage 1 revision 12/27/21 who is post op day 2. -NWB RLE in Knee brace. -ID abs per ID. -Appreciate med management. -Pain meds. -DVT proph with eliquis. Dave Reyes [id number] Note Attestation signed by Sonal Bowles OT at 12/29/2021 5:19 PM This note has been reviewed and is co-signed by the supervising therapist. Occupational Therapy Pt is unable to be seen for therapy at this time secondary to pt requesting that senior underwriter return in about 15 mins to allow pain medication to kick in however, when senior underwriter returned pt stated that the pain medication was not working and he did not want to get up . Will continue to check back as appropriate. Time attempted: 1515 and 1537[facility] Note Physical Therapy Physical Therapy Evaluation Patient Name: Sukhdeep Simental : 1965 Today's Date: 12/28/2021 Time in: 09:25 Time out : 10:08 General Subjective: Patient resting in bed at start and end of session Present Illness: Admitted for stage 1 revision right knee due to knee dysfunction and instability. Recent knee aspiration. Stage 1 revision with spacer 12/27/21 PMH: obesity, bilateral TKA, abdominoplasty, pannus infections , DVT, PE, CKD, hypertension, right knee revision 6 years ago, lumbar fusion, left ankle surgery, back pain Patient Active Problem List Diagnosis Chronic instability of right knee Loose right total knee arthroplasty (CMS/HCC) Quadriceps weakness Lumbosacral radiculopathy Encounter for pre-operative laboratory testing HTN (hypertension) Diabetes mellitus, type 2 (CMS/HCC) Gastroesophageal reflux disease Morbid obesity (CMS/HCC) ELIDA (obstructive sleep apnea) Anxiety Chronic kidney disease Past Medical History: Diagnosis Date Allergic rhinitis Anemia Anxiety BPH (benign prostatic hyperplasia) CKD (chronic kidney disease) 3 Diabetes (CMS/HCC) GERD (gastroesophageal reflux disease) Hyperlipidemia Hyperparathyroidism (CMS/HCC) Hypertension Lumbar pain OA (osteoarthritis) Obesity Obstetric pulmonary blood clot embolism, antepartum Sleep apnea Past Surgical History: Procedure Laterality Date ANKLE SURGERY Left JOINT REPLACEMENT Bilateral KIDNEY STONE SURGERY MULTIPLE LUMBAR FUSION STOMACH SURGERY N/A GASTRIC SLEEVE Pain Pain Assessment Pain Assessment: 0-10 Pain Score: 9 Home Living Home Living Type of Home: House Lives With: Spouse, Daughter Home Adaptive Equipment: Rollator, Lift Chair, Wheelchair-manual Home Living Comments: Patient states that daughter is not home much and is ill, therefore he will not have much help at home Home Layout: One level Home Access: Stairs to enter with rails, Stairs to enter without rails Entrance Stairs-Number of Steps: 1 Prior Level of Function Prior Function Level of [place]: Independent with ADLs and functional transfers (household mobility and limited community due to back and knee problems) Prior Function Comments: patient states he has had difficulty with the right leg and always uses the 4 wheeled walker for support, he also at times does not bear as much weight on the right leg due to pain and dysfunction right leg Objective Precautions Precautions LE Weight Bearing Status: Right, NWB Medical Precautions: fall risk, immobilizer, IV, TKA (stage 1 revision) Cognition Cognition Overall Cognitive Status: Within Functional Limits General Assessments Activity Tolerance Ambulation comments: used 4 wheeled walker for ambulation Endurance: Stage III Sensation Light Touch: Partial deficits in the RLE (pain radiating down right leg with painful tingling in toes right foot from back problems) Functional Assessments Bed Mobility 1 Bed Mobility From 1: Supine Bed Mobility Type 1: To and from Level of Assistance 1: Minimum assistance Bed Mobility Comments 1: assist with right leg in and out of bed Transfer 1 Technique 1: Sit to stand, Stand pivot Transfer Device 1: rolling walker Transfer Level of Assistance 1: Contact guard Trials/Comments 1: patient needs reminders to maintain non-wieght bearing right leg, patient able to lift leg but tends to put partial weight to toe touch weight on right leg approximattely 25% of the time despite cuing Gait Ambulates with bariatric wheeled walker 20 ft with CGA for safety, NWB right leg but needs cues to consistently maintain no weight as patient puts toe touch weight and light partial weight on right foot at times Extremity Assessments AROM RLE (degrees) R Hip Flexion 0-125: 90 (able to long sit in bed with hip grossly at 90 degrees) R Knee Flexion 0-140: (not tested due to knee immobilizer maintaining knee extension right leg) R Ankle Dorsiflexion 0-20: 0 Strength RLE R Hip Flexion: 2-/5 R Hip ABduction: 2-/5 R Knee Extension: (weak but active quad set right leg) R Ankle Dorsiflexion: 5/5 LLE Assessment LLE Assessment: Within Functional Limits Outcome Assessments 6 Clicks (Mobility) Impairment Codes: Fracture/Other ortho Help from another person turning from your back to your side while in a flat bed without using bedrails: A little Help from another person moving from lying on your back to sitting on the side of a flat bed without using bedrails: A little Help from another person moving to and from a bed to a chair (including a wheelchair): A little Help from another person standing up from a chair using your arms (e.g. wheelchair or bedside chair): A little Help from another person to walk in hospital room: A little Help from another person climbing 3-5 steps with a railing: Total Mobility 6 Clicks T-Score: 16 As (more content not included)...[facility]11-03-2022 NotePt's first SN[facility] choice [facility] is out of network with insurance. Discussed with pt and he provided 3 more choices of 1. [facility], 2. [facility], 3. [facility]. Sent referrals via [facility]11-03-2022 NoteInfectious Diseases - Progress Note Our team prefers to use [employer] for communication during business hours (8 AM - 5 PM). We make every effort to keep the Treatment Team in [facility] updated. If I do not respond within 30 minutes, please page me with urgent issues. From 5 PM - 8 AM, please page or call through the track moving machine operator for urgent issues. 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 Recommendations: Cultures negative thus far does have a lot of leukocytes, will follow up cultures This time we will continue with vancomycin and ceftriaxone If patient does not grow any organism will likely need empiric treatment for approximately 6 weeks of IV antibiotics Case discussed with patient and at bedside she decision-making made all questions answered. Subjective Interval History: Patient seen and examined at bedside. No overnight events. No fevers no chills. No diarrhea. Objective Physical Examination : BP 127/83 (BP Location: Left arm) Pulse 65 Temp 36.4 ???C (97.5 ???F) (Oral) Resp 18 Ht 1.727 m (5' 8 ) Wt (!) 140 kg (308 lb 6.8 oz) SpO2 97% BMI 46.90 kg/m??? Temperature Range: Temp: 36.4 ???C (97.5 ???F) Temp Av.7 ???C (98.1 ???F) Min: 36.4 ???C (97.5 ???F) Max: 36.9 ???C (98.5 ???F) General Appearance: Awake, alert, and in no apparent distress Head: Normocephalic, without obvious abnormality, atraumatic Eyes: Pupils equal, round, reactive, to light and accommodation; extraocular movements intact; sclera anicteric; conjunctivae pink ENT: Oropharynx clear, without erythema, exudate, or thrush. Neck: Supple, without lymphadenopathy. Pulmonary/Chest: Clear to auscultation, without wheezes, rales, or rhonchi Cardiovascular: Regular rate and rhythm without murmurs, rubs, or gallops. Abdomen: Soft, nontender, nondistended. Extremities: Right knee wrapped in Rohan bandage, did not open as patient had recent surgery. Neurologic: Bulk and tone are normal. No atrophy is noted. Moves extremities.Sensation grossly intact Skin: No rash or lesions. Laboratory data: I have independently reviewed the following labs: Results from last 7 days Lab Units 12/28/21 0416 WBC AUTO 10*3/uL 12.19* HEMOGLOBIN g/dL 10.5* HEMATOCRIT % 32.1* MCV fL 92.2 PLATELETS AUTO 10*3/uL 235 Results from last 7 days Lab Units 12/28/21 0416 12/27/21 1845 POTASSIUM mmol/L 5.1 4.4 CHLORIDE mmol/L 107 104 CO2 mmol/L 25 25 BUN mg/dL 23 23 CREATININE mg/dL 1.34* 1.49* GLUCOSE mg/dL 208* 246* CALCIUM mg/dL 8.4* 8.7 No lab exists for component: PROCALCITON No lab exists for component: COLOR, TURBIDITY, SPECIFICGRA, PHURINE, LEUKOCYTE, PROTEIN, BLOODHGB, RBCELLS, RENALEPITH No lab exists for component: TOXIGENICC Imaging Studies: I have personally reviewed this study. Cultures: Negative thus far Medications: apixaban, 2.5 mg, oral, BID bumetanide, 1 mg, oral, Daily cefTRIAXone, 2 g, intravenous, q24h docusate sodium, 100 mg, oral, BID doxazosin, 4 mg, oral, Daily famotidine, 20 mg, oral, Daily ferrous sulfate, 325 mg, oral, BID with meals insulin aspart, 0-20 Units, subcutaneous, TID with meals And insulin aspart, 0-20 Units, subcutaneous, Nightly insulin NPH (Isophane), 5 Units, subcutaneous, Once losartan, 25 mg, oral, Daily Oxygen Therapy, , inhalation, Continuous pantoprazole, 40 mg, oral, Nightly simvastatin, 10 mg, oral, Nightly sucralfate, 1 g, oral, BID AC tamsulosin, 0.4 mg, oral, Daily traZODone, 50 mg, oral, Nightly vancomycin, 1 g, intravenous, q12h This progress note was completed using a voice rubber stamp maker system. Every effort was made to ensure accuracy; however, inadvertent computerized rubber stamp maker errors may be present. Thank you for allowing us to participate in the care of this patient. Asim Alfonso MD Infectious Diease Fellow PGY 5 [facility] I performed a history and physical examination of the patient Sukhdeep Simental, I independently reviewed the laboratory work and imaging as well as other studies mentioned in the above note; I have seen the patient along with and discussed the management with the Infectious Diseases fellow, Asim Alfonso MD I have reviewed the above note, I agree with the findings and plan of care with the following additions and corrections: Agree with A/P as above Thank you for allowing us to participate in the care of this patient. . Erica Pompa MD, [facility] Infectious Diseases Pager: [phone] Contact us via [employer] Chat or page through the [facility]11-03-2022 Note Attestation signed by Kb Cordova MD at 12/28/2021 5:10 PM I personally saw and examined the patient on the same date of service as resident/fellow . I discussed the findings and therapeutic plan with the resident/fellow . I agree with the documentation, except for any edits/updates below. Teaching Physician's Revisions: agree with plan of care and documentation Subjective Patient was seen and examined at the bedside this morning. No acute events overnight reported. Feels good overall. Vitally stable. Objective Patient Vitals for the past 24 hrs: BP Temp Temp src Pulse Resp SpO2 Height Weight 12/28/21 0827 127/83 36.4 ???C (97.5 ???F) Oral 65 18 97 % -- -- 12/27/212002 145/80 36.8 ???C (98.3 ???F) Oral 75 18 96 % -- -- 12/27/21 1730 141/88 36.9 ???C (98.5 ???F) Oral 86 16 97 % 1.727 m (5' 8 ) (!) 140 kg (308 lb 6.8 oz) 12/27/21 1640 -- -- -- 94 12 98 % -- -- 12/27/21 1635 -- -- -- 103 16 99 % -- -- 12/27/21 1630 (!) 154/93 -- -- 102 15 98 % -- -- 12/27/21 1625 -- -- -- 101 23 98 % -- -- 12/27/21 1405 -- -- -- 109 15 97 % -- -- 12/27/21 1400 139/81 -- -- 103 20 97 % -- -- 12/27/21 1355 -- -- -- 89 19 96 % -- -- 12/27/21 1350 -- -- -- 105 13 98 % -- -- 12/27/21 1300 158/85 -- -- (!) 114 16 97 % -- -- 12/27/21 1250 -- -- -- 101 (!) 9 97 % -- -- 12/27/21 1245 130/85 -- -- 108 15 98 % -- -- 12/27/21 1240 -- -- -- (!) 112 21 95 % -- -- 12/27/21 1235 -- -- -- 103 14 93 % -- -- 12/27/21 1230 147/83 -- -- 103 14 95 % -- -- 12/27/21 1225 -- -- -- 101 16 92 % -- -- 12/27/21 1220 -- -- -- 102 16 95 % -- -- 12/27/21 1200 -- 36 ???C (96.8 ???F) Temporal -- -- 95 % -- -- Physical Exam Constitutional: Appearance: Normal appearance. He is normal weight. HENT: Head: Normocephalic and atraumatic. Right Ear: Tympanic membrane, ear canal and external ear normal. Left Ear: Tympanic membrane, ear canal and external ear normal. Nose: Nose normal. Mouth/Throat: Mouth: Mucous membranes are moist. Pharynx: Oropharynx is clear. Eyes: Extraocular Movements: Extraocular movements intact. Conjunctiva/sclera: Conjunctivae normal. Pupils: Pupils are equal, round, and reactive to light. Cardiovascular: Rate and Rhythm: Normal rate and regular rhythm. Pulses: Normal pulses. Heart sounds: Normal heart sounds. Pulmonary: Effort: Pulmonary effort is normal. Breath sounds: Normal breath sounds. Abdominal: General: Abdomen is flat. Bowel sounds are normal. Palpations: Abdomen is soft. Musculoskeletal: General: Normal range of motion. Cervical back: Normal range of motion and neck supple. Skin: General: Skin is warm and dry. Neurological: General: No focal deficit present. Mental Status: He is alert and oriented to person, place, and time. Mental status is at baseline. Psychiatric: Mood and Affect: Mood normal. Behavior: Behavior normal. Thought Content: Thought content normal. Judgment: Judgment normal. Lab Results Component Value Date NA 139 12/28/2021 K 5.1 12/28/2021 CL 107 12/28/2021 ANIONGAP 7 12/28/2021 BUN 23 12/28/2021 CREATININE 1.34 (H) 12/28/2021 CALCIUM 8.4 (L) 12/28/2021 No results found for: BILITOT, BILIDIR, ALKPHOS, AST, ALT, PROT, ALBUMIN Lab Results Component Value Date WBC 12.19 (H) 12/28/2021 RBC 3.48 (L) 12/28/2021 HGB 10.5 (L) 12/28/2021 HCT 32.1 (L) 12/28/2021 MCV 92.2 12/28/2021 MCH 30.2 12/28/2021 MCHC 32.7 12/28/2021 RDW 13.2 12/28/2021 NEUTOPHILPCT 65.4 12/01/2021 LYMPHOPCT 20.2 12/01/2021 MONOPCT 12.3 (H) 12/01/2021 EOSPCT 1.5 12/01/2021 BASOPCT 0.4 12/01/2021 NEUTROABS 3.39 12/01/2021 LYMPHSABS 1.05 (L) 12/01/2021 MONOSABS 0.64 12/01/2021 EOSABS 0.08 12/01/2021 BASOSABS 0.02 12/01/2021 PLT 235 12/28/2021 NRBC 0.0 12/01/2021 === Imaging Orders, Last 24 Hours === XR KNEE 1-2 VIEWS RIGHT - Impression - Right total knee arthroplasty revision. Arthroplasty hardware removed and a cement spacer and 2 small metal rods placed tibia and fibula. There is some immediate postprocedure soft tissue air and a soft tissue swelling Electronically signed: Todd Ashby. Assessment/Plan Active Problems: Chronic instability of right knee Loose right total knee arthroplasty ([facility]) #Total knee arthroplasty debridement and hardware removal Suspicious for periprosthetic joint infection - ID are following,recommended Vancomycin and ceftriaxone. #Non-insulin dependent diabetes mellitus - Given 18mg of dexamethasone during surgery. - blood glucose 180s. Start sliding scale lispro - Would not restart home pioglitazone -If greater than 300, give one time dose of NPH. -Diet adjusted ,will monitor if still running high will switch to MCS. #Depression/Anxiety - CW home trazodone - Would hold off on home ativan given that patient (more content not included)...[facility]11-03-2022 Note Attestation signed by Deidra Camarillo OT at 12/28/2021 3:57 PM This senior underwriter present and provided 1:1 supervision and direction of patient care. Jamie CHONG, ANTONIO Occupational Therapy Occupational Therapy Evaluation Patient Name: Sukhdeep Simental : 1965 Today's Date: 12/28/2021 Uzma Oliver/ISSAC This session was completed under the supervision of ARLETTE King MOT Time in: 926 Time out: 100 Sx type: R knee stage 1 TKA revision and periprosthetic infection debridement, removal of hardware, washout and space placement Sx date: 12/27/21 General Subjective: 56 yoM presents with chronic instability of R knee and loose R TKA with periprosthetic infection. H/o lumbar fusion with lumbosacral radiculopathy and compressive neuropathy. Per pt report, is in need of additional lumbar sx. Family/Caregiver Present: No Pt presents semi-fowlers in bed wearing R knee immobilizer, agreeable to OT session. RN okay for pt to be seen OOB this date. Pt completed functional tasks including bed mobility, functional transfers, LB dressing, simulated toileting, functional ambulation, and post-op education. Pt demonstrated/verbalized understanding with frequent vc for maintenance of RLE NWB status. Upon completion of session, pt returned to semi-fowlers in bed with call light and needs in reach. RN updated on pt's performance. Patient Active Problem List Diagnosis Chronic instability of right knee Loose right total knee arthroplasty ([facility]) Quadriceps weakness Lumbosacral radiculopathy Encounter for pre-operative laboratory testing HTN (hypertension) Diabetes mellitus, type 2 ([facility]) Gastroesophageal reflux disease Morbid obesity ([facility]) ELIDA (obstructive sleep apnea) Anxiety Chronic kidney disease Past Medical History: Diagnosis Date Allergic rhinitis Anemia Anxiety BPH (benign prostatic hyperplasia) CKD (chronic kidney disease) 3 Diabetes ([facility]) GERD (gastroesophageal reflux disease) Hyperlipidemia Hyperparathyroidism ([facility]/HCC) Hypertension Lumbar pain OA (osteoarthritis) Obesity Obstetric pulmonary blood clot embolism, antepartum Sleep apnea Past Surgical History: Procedure Laterality Date ANKLE SURGERY Left JOINT REPLACEMENT Bilateral KIDNEY STONE SURGERY MULTIPLE LUMBAR FUSION STOMACH SURGERY N/A GASTRIC SLEEVE Precautions Precautions LE Weight Bearing Status: Right, NWB Medical Precautions: fall risk, immobilizer, IV, nerve block, TKA Pain Pain Assessment Pain Assessment: 0-10 Pain Score: 9 Home Living Home Living Type of Home: House Lives With: Spouse, Daughter ( and adult daughter) Home Adaptive Equipment: Rollator, Lift Chair, It Engineer, Cane, Wheelchair-manual Home Living Comments: Pt reports that his daughter is not consistently home to provide assistance PRN and that his is too sick to provide assistance PRN. Home Layout: One level Home Access: Stairs to enter without rails Entrance Stairs-Rails: None Entrance Stairs-Number of Steps: 1 Bathroom Shower/Tub: Walk-in shower Bathroom Toilet: Standard Bathroom Equipment: Other (Comment), Shower chair without back, Grab bars in shower, Hand-held shower (bidet) Bathroom Accessibility: Pt reports that rollator fits inside bathroom. Prior Level of Function Prior Function Level of [place]: Needs assistance with ADLs, Needs assistance with homemaking (Pt reports using rollator for ambulation.) Receives Help From: Family ADL Assistance: Needs assistance Homemaking Assistance: Needs assistance Meal Prep: (Pt reports that he was unable to tolerate standing to make a sandwich d/t pain.) Homemaking Assistance Comments: (Pt reports receiving assistance for most IADLs.) Prior Function Comments: Pt reports that he sometimes needed assistance with LB dressing. Prior IADLs IADL History Homemaking Responsibilities: No IADL Comments: Pt reports that he pays for lawncare and housekeeping services. Cognition Cognition Arousal/Alertness: Appropriate responses to stimuli Orientation Level: Oriented X4 Following Commands: Follows all commands and directions without difficulty Safety Judgment: Decreased awareness of need for safety Awareness of Errors: Assistance required to identify errors made, Decreased awareness of errors Attention Span: Appears intact Memory: Appears intact Problem Solving: Able to problem solve independently Communication: Intact Static Sitting Balance Static Sitting Balance Static Sitting-Balance Support: Unilateral upper extremity supported (L foot supported) Static Sitting-Level of Assistance: Close supervision Dynamic Sitting Balance Dynamic Sitting Balance Dynamic Sitting-Balance Support: Uni (more content not included)...[facility]11-03-2022 NotePt lives at home with his and 28 y/o dgtr. Is POD1 from right knee revision and is NWB. Pt expressed concerns about being being able to discharge home as his is recovering from pneumonia and his dgtr works all the time. Pt is requesting [facility]. Provided pt with a backup SNF list in case they cannot accept. Discussed with OT who reported pt could qualify for SNF but likely could also discharge home functionally. Sent referral and updated AVS. Advised pt of the pre-cert process that will be needed.[facility]11-03-2022 NoteSubjective Patient endorses pain to right knee this morning. He seems to be doing well overall however. Objective Patient Vitals for the past 24 hrs: BP Temp Temp src Pulse Resp SpO2 Height Weight 12/27/212002 145/80 36.8 ???C (98.3 ???F) Oral 75 18 96 % -- -- 12/27/21 1730 141/88 36.9 ???C (98.5 ???F) Oral 86 16 97 % 1.727 m (5' 8 ) (!) 140 kg (308 lb 6.8 oz) 12/27/21 1640 -- -- -- 94 12 98 % -- -- 12/27/21 1635 -- -- -- 103 16 99 % -- -- 12/27/21 1630 (!) 154/93 -- -- 102 15 98 % -- -- 12/27/21 1625 -- -- -- 101 23 98 % -- -- 12/27/21 1405 -- -- -- 109 15 97 % -- -- 12/27/21 1400 139/81 -- -- 103 20 97 % -- -- 12/27/21 1355 -- -- -- 89 19 96 % -- -- 12/27/21 1350 -- -- -- 105 13 98 % -- -- 12/27/21 1300 158/85 -- -- (!) 114 16 97 % -- -- 12/27/21 1250 -- -- -- 101 (!) 9 97 % -- -- 12/27/21 1245 130/85 -- -- 108 15 98 % -- -- 12/27/21 1240 -- -- -- (!) 112 21 95 % -- -- 12/27/21 1235 -- -- -- 103 14 93 % -- -- 12/27/21 1230 147/83 -- -- 103 14 95 % -- -- 12/27/21 1225 -- -- -- 101 16 92 % -- -- 12/27/21 1220 -- -- -- 102 16 95 % -- -- 12/27/21 1200 -- 36 ???C (96.8 ???F) Temporal -- -- 95 % -- -- 12/27/21 0736 153/89 36.6 ???C (97.9 ???F) Temporal 91 20 97 % 1.753 m (5' 9.02 ) 129 kg (283 lb 4.7 oz) Physical Exam Gen: Alert, no acute distress. RLE: Dressing is clean, dry and intact. Fires ankle df/pf. SILT in SP/DP/T. DP pulse intact. Lab Results Component Value Date NA 139 12/28/2021 K 5.1 12/28/2021 CL 107 12/28/2021 ANIONGAP 7 12/28/2021 BUN 23 12/28/2021 CREATININE 1.34 (H) 12/28/2021 CALCIUM 8.4 (L) 12/28/2021 No results found for: BILITOT, BILIDIR, ALKPHOS, AST, ALT, PROT, ALBUMIN Lab Results Component Value Date WBC 12.19 (H) 12/28/2021 RBC 3.48 (L) 12/28/2021 HGB 10.5 (L) 12/28/2021 HCT 32.1 (L) 12/28/2021 MCV 92.2 12/28/2021 MCH 30.2 12/28/2021 MCHC 32.7 12/28/2021 RDW 13.2 12/28/2021 NEUTOPHILPCT 65.4 12/01/2021 LYMPHOPCT 20.2 12/01/2021 MONOPCT 12.3 (H) 12/01/2021 EOSPCT 1.5 12/01/2021 BASOPCT 0.4 12/01/2021 NEUTROABS 3.39 12/01/2021 LYMPHSABS 1.05 (L) 12/01/2021 MONOSABS 0.64 12/01/2021 EOSABS 0.08 12/01/2021 BASOSABS 0.02 12/01/2021 PLT 235 12/28/2021 NRBC 0.0 12/01/2021 === Imaging Orders, Last 24 Hours === XR KNEE 1-2 VIEWS RIGHT - Impression - Right total knee arthroplasty revision. Arthroplasty hardware removed and a cement spacer and 2 small metal rods placed tibia and fibula. There is some immediate postprocedure soft tissue air and a soft tissue swelling Electronically signed: Todd Ashby. Assessment/Plan Active Problems: Chronic instability of right knee Loose right total knee arthroplasty ([facility]) 56 yo m with R knee stage 1 revision 12/27/21 who is post op day 1. -NWB RLE in Knee brace. -ID abs per ID. -Appreciate med management. -Pain meds. -DVT proph with eliquis. Dave Reyes [id number]22 NotePt seen and evaluated bedside per RT assess protocol. Pt reports no SOB or difficulty breathing at this time. He reports no pulmonary disease history. Coached pt with deep breathing and pt performed incentive spirometry reaching 2000ml x5. He has no other concerns at this time. Encouraged pt to continue to use IS hourly as tolerated.[facility]11-02-2022 NotePharmacy Dosing Service - Vancomycin Initial Consult Note Pharmacy has been consulted for the dosing and evaluation of Drug: Vancomycin Indication: Right knee periprosthetic infection AUC 400-600 mg*hr/L and trough 10-20 mcg/mL Other Antimicrobial Regimens: ceftriaxone Labs and Renal Function Total body weight: (!) 140 kg (308 lb 6.8 oz) [place] body weight: 68.4 kg (150 lb 12.7 oz) Adjusted ideal body weight: 97 kg (213 lb 13.5 oz) Body mass index is 46.9 kg/m???. Auto WBC Date/Time Value Ref Range Status 12/01/2021 12:11 PM 5.19 4.00 - 10.60 10*3/uL Final 12/19/2020 12:01 PM 11,976 WBC/uL Final Comment: Some reference interval(s) and other method performance specifications have not been established for analytes on this body fluid. The test result must be integrated into the clinical context for interpretation. 12/15/2020 11:51 AM 9.86 4.00 - 10.60 10*3/uL Final BUN Date/Time Value Ref Range Status 12/27/2021 06:45 PM 23 7 - 25 mg/dL Final 12/01/2021 12:11 PM 16 7 - 25 mg/dL Final CrCl or renal function: Estimated Creatinine Clearance: 74.1 mL/min (A) (by C-G formula based on SCr of 1.49 mg/dL (H)). I/O: I/O last 3 completed shifts: In: 953 (6.8 mL/kg) [I.V.:923 (6.6 mL/kg); IV Piggyback:30] Out: 100 (0.7 mL/kg) [Blood:100] Weight: 139.9 kg Estimated Pharmacokinetic Parameters: Weight used to calculate CrCl and Ke: adjusted body weight (due to obesity) Pharmacokinetic Parameters: Vd: 70 L Ke: 0.066 hr -1 T1/2: 10.5 hr Microbiology: Tissue cultures drawn -MRSA Nares ordered? N/A Assessment / Comments: - Patient received a dose of 1000 mg in the OR at 1124 - Based on age, weight and renal function, a regimen of 1000 mg q12h would estimate an AUC of 433.5 mg*L/hr (Goal = 400-600 mg*L/hr) and a trough of 12.7 mcg/mL - Current risk factors for nephrotoxicity: Baseline renal dysfunction - Comments on renal function / baseline serum creatinine: at baseline - Recent vancomycin history: No Plan: - Start vancomycin 1000 mg every 12 hours - Plan to check serum peak and trough levels at steady state - Check BUN/SCr daily -Pharmacy will follow up daily on culture and sensitivity results and renal function -Please do not hesitate to contact us with comments or questions Thank you, Balwinder Short, PharmD, 12/27/21UnMer[facility]11-02-2022 NotePatient: Sukhdeep Simental Procedure Summary Date: 12/27/21 Room / Location: [facility] OPERATING ROOM 02 / [facility] Operating Room Anesthesia Start: 0838 Anesthesia Stop: 1205 Procedure: INFECTED PROSTHETIC, STAGE 1 REVISION AND DEBRIDEMENT, REMOVAL OF HARDWARE ALL COMPONENTS, WASHOUT AND SPACER PLACEMENT (Right: Knee) Diagnosis: Chronic instability of right knee 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, initial encounter ([facility]) Quadriceps weakness Lumbosacral radiculopathy (Chronic instability of right knee [M23.51]) (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, initial encounter ([facility]) [T84.032A]) (Quadriceps weakness [M62.81]) (Lumbosacral radiculopathy [M54.17]) Surgeons: Payton Helm MD Responsible Provider: Steve Moses MD Anesthesia Type: general, regional ASA Status: Not recorded Anesthesia Type: general, regional Vitals Value Taken Time BP 160/92 12/27/21 1331 Temp 36 ???C (96.8 ???F) 12/27/21 1200 Pulse 108 12/27/21 1338 Resp 21 12/27/21 1338 SpO2 99 % 12/27/21 1338 Vitals shown include unvalidated device data. Anesthesia Post Evaluation Patient location during evaluation: PACU Patient participation: complete - patient participated Level of consciousness: awake and alert Pain management: adequate Airway patency: patent Cardiovascular status: acceptable Respiratory status: acceptable Hydration status: acceptable No notable events documented.[facility]11-02-2022 Note Patient: Sukhdeep Simental Procedure Information Anesthesia Start Date/Time: 12/27/21 0838 Procedure: INFECTED PROSTHETIC, STAGE 1 REVISION AND DEBRIDEMENT, REMOVAL OF HARDWARE ALL COMPONENTS, WASHOUT AND SPACER PLACEMENT (Right: Knee) - biometInpatient Only, reps notified. Location: [facility] OPERATING ROOM 02 / [facility] Operating Room Surgeons: Payton Helm MD Relevant Problems Anesthesia (+) ELIDA (obstructive sleep apnea) (-) History of anesthesia complications Cardio (+) HTN (hypertension) Endo (+) Diabetes mellitus, type 2 (CMS/HCC) GI (+) Gastroesophageal reflux disease /Renal (+) Chronic kidney disease Nervous (+) Lumbosacral radiculopathy Musculoskeletal (+) Chronic instability of right knee (+) Loose right total knee arthroplasty (CMS/HCC) (+) Quadriceps weakness Endocrine/Metabolic (+) Morbid obesity ([facility]) Other (+) Anxiety Clinical information reviewed: Tobacco Allergies Meds Med Hx Surg Hx Fam Hx Soc Hx Physical Exam Airway Mallampati: III TM distance: >3 FB Neck ROM: full Cardiovascular Rhythm: regular Rate: normal Dental Pulmonary Breath sounds clear to auscultation Abdominal Anesthesia Plan ASA 3 general (Discussed risks of peripheral nerve block with the patient, specifically including possible bleeding, infection, temporary or permanent neve damage. Patient understands these risks and is willing to proceed with the nerve block. ) intravenous induction Anesthetic plan and risks discussed with patient. Plan discussed with CAA, resident and medical student. [facility] Note Airway Date/Time: 12/27/2021 9:05 AM Urgency: elective Airway not difficult General Information and Staff Patient location during procedure: OR Anesthesiologist: Steve Moses MD Resident/ROAD OILER/CAA: AMY Gonzales Performed: other anesthesia staff Indications and Patient Condition Indications for airway management: anesthesia Spontaneous Ventilation: absent Sedation level: deep Preoxygenated: yes Mask difficulty assessment: 3 - difficult mask (inadequate, unstable or two providers) +/- NMBA Final Airway Details Final airway type: endotracheal airway Successful airway: ETT Cuffed: yes Successful intubation technique: video laryngoscopy Endotracheal tube insertion site: oral Blade: Dee Blade size: #4 ETT size (mm): 7.5 Cormack-Lehane Classification: grade IIa - partial view of glottis Placement verified by: chest auscultation and capnometry Measured from: lips ETT to lips (cm): 22 Number of attempts at approach: 1 Number of other approaches attempted: [facility]Un[facility] 12-[facility]-2021 NotePeripheral Block Patient location during procedure: pre-op Start time: 12/27/2021 8:24 AM End time: 12/27/2021 8:29 AM Reason for block: at surgeon's request and post-op pain management Staffing Performed: anesthesiologist Anesthesiologist: Steve Moses MD Resident/ROAD OILER: AMY Gonzales Other anesthesia staff: Umberto Garcia MD Preanesthetic Checklist Completed: patient identified, IV checked, site marked, risks and benefits discussed, surgical consent, monitors and equipment checked, pre-op evaluation and timeout performed Peripheral Block Patient position: supine Prep: ChloraPrep Patient monitoring: continuous pulse ox Block type: adductor canal block Laterality: right Injection technique: single-shot Guidance: ultrasound guided Local infiltration: bupivicaine Infiltration strength: 0.5 % Dose: 30 mL Needle Needle type: short-bevel Needle gauge: 22 G Needle length: 4 in Needle localization: ultrasound guidance and anatomical landmarks Medications Administered Midazolam (VERSED) IV, 2 mg fentaNYL (SUBLIMAZE) IV, 100 mcg bupivacaine HCl (Marcaine) 0.5 % (5 mg/mL) injection, 150 mg Assessment Injection assessment: negative aspiration for heme, no paresthesia on injection, incremental injection and local visualized surrounding nerve on ultrasound Paresthesia pain: none Heart rate change: no Slow fractionated injection: [facility]Un[facility] Note Attestation signed by Jason Kiser MD at 12/20/2021 8:01 PM I personally saw and examined the patient on the same date of service as resident/fellow Akash Loredo. I discussed the findings and therapeutic plan with the resident/fellow Akash Loredo. I agree with the documentation, except for any edits/updates below. Teaching Physician's Revisions: Jason Kiser Orthopaedic Surgery Subjective 12/20/21 Sukhdeep Simental is a 56 y.o. year old male [facility] patient returns to clinic today for follow-up of low back pain and right lower extremity radicular symptoms. Patient does have history of previous L4 S1 laminectomy and fusion. He reports since his last visit he underwent a series of epidural injections with pain management. He states the first of these injections helped for several hours, but the remaining 2 injections did not provide him any relief. He has not had any relief from therapy in the past. He continues to report significant pain radiating from his right lower back, down his buttock and down his leg. He reports he continues to need a walker for ambulation reports difficulty with movement of his right leg. Does also report numbness and tingling distally. 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 [employer] and there is no light duty options available given his need for walker for ambulation When did this problem begin: Long time Timing/frequency of occurrence: Constant Pain description: dull ache Pain severity: 8 Radicular pain: Yes, right lower extremity Numbness/tingling: Yes Pain is getting: gradually worsening Weakness: Yes What improves symptoms: Rest What makes symptoms worse: Activity Gait disturbance: No Fine hand dexterity problem: No Previous surgeries for this problem: Yes, L4-S1 laminectomy and fusion Patient History Past Surgical History: Procedure Laterality Date ANKLE SURGERY Left JOINT REPLACEMENT Bilateral KIDNEY STONE SURGERY MULTIPLE LUMBAR FUSION STOMACH SURGERY N/A GASTRIC SLEEVE Past Medical History: Diagnosis Date Allergic rhinitis Anemia Anxiety BPH (benign prostatic hyperplasia) CKD (chronic kidney disease) 3 Diabetes ([facility]) GERD (gastroesophageal reflux disease) Hyperlipidemia Hyperparathyroidism ([facility]) Hypertension Lumbar pain OA (osteoarthritis) Obesity Obstetric pulmonary blood clot embolism, antepartum Sleep apnea Objective General: Body mass index is 41.35 kg/m???. No acute distress, comfortable Respiratory: Unlabored breathing with normal rate, no cough Cardiovascular: Warm well perfused extremities Psych: Appropriate mood and behavior MSK: Using rolling walker for ambulation Neck/Back: Normal neck/cervical spine flexion and extension Normal alignment of cervical spine No kyphosis, scoliosis, or cervical paraspinal muscle tenderness Limited thoracolumbar flexion and lumbosacral extension Lumbar pain with flexion and extension Paraspinal tenderness. Upper Extremity: Bilateral finger flexor strength 5/5 Abduction strength 5/5 Biceps strength 5/5 Wrist strength 5/5 Triceps strength 5/5 Normal sensation to pinprick Lower Extremity: Positive straight leg raise bilaterally Lower extremity peripheral pulses Normal sensation to pinprick Flexion at the hip strength 5/5 on the left, 2/5 on the right Quadriceps strength 5/5 on the left, 3/5 on the right Tibialis anterior strength 5/5 Plantar flexion strength 5/5 Extensor hallicis longus strength 5/5 Neurologic Detailed Exam Tan reflex absent DTRs 2+ bilaterally throughout Gait and Station: normal gait Imaging: Prior x-rays and CT myelogram demonstrate L1-4 disc degeneration, degenerative lumbar scoliosis, prior L4-S1 Ectomy and fusion, and L2-3 and L3-4 disc degeneration and foraminal stenosis Assessment/Plan Sukhdeep Simental is a 56 y.o. year old male [facility] patient with history of L4-S1 laminectomy and fusion with L1-L4 disc degeneration, degenerative lumbar scoliosis, L2-3 and L3-4 disc degeneration and foraminal stenosis -Discussed clinical and imaging findings with the patient at length today -Recommend patient follow-up again with pain management clinic and discussed with them possibility of spinal cord stimulator or pain pump -Submit C9 to add L1-2 disc generation and L2-3 disc degeneration to approved diagnoses -Submit C9 to add L2-3 foraminal stenosis to approved diagnoses -Return to clinic after evaluation by pain management if symptoms persist. We did discuss that operative intervention would be very high risk due to his existing lumbar scoliosis as well as extensive fusion levels Akash Loredo MD Orthopaedic Surgery, PGY-5 By using the attestations below, the signing clinician agrees that I have read (more content not included)...[facility]10-21-2022 Evaluation note* Encounter Date Diagnosis Assessment Notes Treatment Notes Treatment Clinical Notes Nov, Dysuria (ICD-10 - R30.0) Dysuria: adult home care material was printed Drink plenty fluids, get plenty of rest. Continue home medications as prescribed including the levofloxacin. Follow-up with your family physician next week for recheck. Go to the ER for worsening symptoms or concerns Patient's urine dip is not convincing for a UTI. He is on levofloxacin for a sinus infection which should treat the UTI as well if it were present. Patient is instructed to continue the levofloxacin, his urine will be cultured for infection, gonorrhea, chlamydia, yeast. [employer] Other 10-07-2022 NoteSubjective Sukhdeep Simental is a 56 y.o. male who returns to see me today for a preoperative visit for his right revision knee arthroplasty. he says he has been cleared by his primary care physician. Patient has been initially has been referred by Dr. 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 Patient was recently seen and evaluated in the office with aspiration of his right total knee arthroplasty. He continues to have persistent complaints of painful/unsteady R revision TKA. He underwent revision for infection approximately 6 years ago and reports continued dysfunction of knee. He also reports multiple yearly episodes of lower extremity cellulitis associated with chronic vascular changes in legs for which he has a standing prn antibiotic prescription from his primary care physician. He was seen less than a week ago for aspiration of the knee due to elevated ESR and CRP, which shows elevated WBC count and PMN percentage but cultures without growth to date. He denies any erythema, warmth, or wound complication, denies fevers, chills, rigors, nausea, vomitting. Patient has a complex medical history with morbid obesity along with bilateral knee arthroplasty, previous abdominal plasty, infections around the abdominal pannus, deep vein thrombosis and pulmonary embolus. He reports that he has already begun working with a bariatric surgeon and should be undergoing gastric bypass surgery in the near future. He has been led to believe that this should result in significant weight loss in the next year. 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 . Objective Ht 1.753 m (5' 9 ) Wt 127 kg (280 lb) BMI 41.35 kg/m??? General: alert and oriented, in no acute distress Gait: Antalgic. The patient can bear weight on the injured extremity. Right Lower Extremity Hip Palpation: moderate tenderness over the greater trochanter Hip ROM: 25% of normal Hamstring tightness reveals a popliteal angle to be 15 degrees Knee Effusion: 1+ Ecchymosis: none Knee ROM: -5 to 100 degrees with subpatellar crepitance. Patella: Patella does track normally. Patellar apprehension test: negative Patellar compression test: negative Tenderness: none, medial joint line, lateral joint line, medial facet of the patella, lateral facet of the patella, medial femoral condyle, medial tibial plateau, lateral femoral condyle, lateral tibial plateau, tibial tubercle, and patellar tendon insertion Stability: Delphine's test: positive Posterior drawer: positive Medial collateral ligament: negative Lateral collateral ligament: negative Thelma Test: negative Robe's Test: negative with no joint line tenderness Sensation: deficit noted - around the incision site Pulses: normal DP and PT pulses General Appearance: NAD, morbidly obese Gait and Station Appearance: antalgic gait, waddling gait (Trendelenburg), ambulates with cane Cardiovascular System Arterial Pulses Right: dorsalis pedis diminished (chronic bilateal venous stasis ulcers to mid leg) Edema Right: pretibial 3+ Edema Left: pretibial 3+ Varicosities Right: no varicosities Varicosities Left: no varicosities Knees Inspection Right: no deformity, no mass, no induration, no warmth, no erythema (well healed midline surgical incision) Inspection Left: no deformity, no mass, no induration, no warmth, no erythema Bony Palpation Right: tenderness of the medial joint line, tenderness of the lateral joint line, tenderness of the lateral patellar facet, tenderness of the medial patellar facet, tenderness of the lateral tibial plateau, tenderness of the medial tibial plateau Soft Tissue Palpation Right: no tenderness of the quadriceps tendon, no tenderness of the patellar tendon Active Range of Motion Right: extension normal, flexion (100 deg), pain on initiation of movement Passive Range of Motion RIght: flexion (110 deg.), extension (0 deg.) Stability Right: ligamentous instability medial with valgus stress at 0 deg. grade 2, ligamentous instability medial with varus stress at 0 deg. grade 2, anterior drawer sign positive, Delphine test positive grade 3+ Strength Right: flexion 5/5, extension 5/5 Skin Right Lower Extremity: thin, rash Left Lower Extremity: thin, rash OE : AO X 3, Vitals: stable, R/S: No SOB CVS: No chest pain or palpitations. Right knee joint compared to left side: Incisions have healed well has severe trophic changes bilateral lower extremities along with anterior posterior drawer's test positive, mid flexion instability noted at about 30 and 90 degrees as well, varus valgus instability noted which is globally unstable right knee arthroplasty, tenderness is global around the knee joint, patella tracks normally, mild to moderate effusion noted. No local (more content not included)...[facility]08-31-2022 Evaluation note* Encounter Date Diagnosis Assessment Notes Treatment Notes Treatment Clinical Notes Sep, CKD (chronic kidney disease) stage 4, GFR 15-29 ml/min (ICD-10 - N18.4) Thanks for referring Mr. Simental to our office for an evaluation management of CKD. As you know he has longstanding DM with HTN and likely has a CKD as a result of these comorbidities. His renal function has been declining due to the progression of CKD. He reported that he is scheduled to have a renal ultrasound next week. I have ordered a UA UPCR to evaluate for hematuria proteinuria. I discussed with the importance of good DM and HTN control to slow down the progression of CKD. I have advised him to avoid NSAIDs. Sep, 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 He currently takes irbesartan for renal protection. I will continue that. Sep, Ashvin hy kid w cr kid I-IV (ICD-10 - I12.9) Blood pressure is controlled. He appears to be euvolemic. Continue current medication irbesartan and Bumex. Sep, Hyperkalemia (ICD-10 - E87.5) He had a hyperkalemia likely due to the combination of CKD, spironolactone and irbesartan. His potassium is back to normal after discontinuation of spironolactone. I have advised him low potassium diet and provide information about it. Sep, Secondary hyperparathyroidism (ICD-10 - N25.81) Calcium is within normal limit. We will check PTH and vitamin D. Sep, Anemia of renal dise ase (ICD-10 - D63.1) Hemoglobin is within the goal. We will check iron studies B12 and folate level. Also will check the work-up for paraproteinemia due to the CKD and anemia. [employer] [facility] Other 04-01-2022 History of Present illness Narrative* Jenny Lentz RN - 05/26/2021 2:30 PM EDT Discharge instructions reviewed with patient and spouse. Patient sent home with IS, CHG soap, scripts from outpatient pharmacy, home O2 and all belongings. Patient taken via wheelchair x 1 staff to waiting transportation. * Octavio Mcclellan DO - 05/26/2021 12:34 PM EDT Met with patient to discuss oxygen for hypoxic respiratory failure. Alternatives discussed. He would like to go home on oxygen at this point. Dx: hypoxic respiratory failure * Kraig Lake APRN - OLGA - 05/26/2021 12:10 PM EDT Images from the original note were not included. [employer] Progress Note Date: 05/26/2021 Patient name: Sukhdeep Simental Date of admission: 05/24/2021 9:07 AM Date of : 1965 PCP: Derick Isabel MD Reason for Admission: S/P laparoscopic sleeve gastrectomy [Z98.84] Subjective: Clinical Changes / Abnormalities: Pt seen and examined in the room. No further VT. Pt denies any CPor SOB Medications: Scheduled Meds: tamsulosin 0.4 mg Oral Daily metoprolol tartrate 25 mg Oral BID aprepitant 80 mg Oral Daily ipratropium-albuterol 1 ampule Inhalation Q6H WA enoxaparin 60 mg SubCUTAneous BID gabapentin 100 mg Oral TID sodium chloride flush 5-40 mL IntraVENous 2 times per day famotidine 20 mg Oral BID Or famotidine (PEPCID) injection 20 mg IntraVENous BID Continuous Infusions: sodium chloride CBC: Recent Labs 05/24/21 1558 05/25/21 0627 WBC 9.6 10.8 HGB 12.7* 12.2* PLT 273 263 BMP: Recent Labs 05/24/21 1558 05/25/21 0627 NA 132* 139 K 4.2 4.8 CL 102 106 CO2 17* 23 BUN 29* 24* CREATININE 1.16 1.10 GLUCOSE 203* 127* Hepatic: No results for input(s): AST, ALT, ALB, BILITOT, ALKPHOS in the last 72 hours. Troponin: No results for input(s): TROPHS in the last 72 hours. BNP: No results for input(s): BNP in the last 72 hours. Lipids: No results for input(s): CHOL, HDL in the last 72 hours. Invalid input(s): LDLCALCU INR: No results for input(s): INR in the last 72 hours. ECHO: previously taken 01/2020 and show mild LVH, reduced LV diastolic compliance, PA pressure 24 mmHg. Ejection fraction: 55-60% Objective: Vitals: BP 130/85 Pulse 105 Temp 98.8 F (37.1 C) (Oral) Resp 18 Ht 5' 9 (1.753 m) Wt (!)343 lb (155.6 kg) SpO2 98% BMI 50.65 kg/m General appearance: alert and cooperative with exam HEENT: Head: Normocephalic, no lesions, without obvious abnormality. Neck: no JVD, trachea midline, no adenopathy Lungs: Clear to auscultation Heart: Regular rate and rhythm, s1/s2 auscultated, no murmurs Abdomen: soft, non-tender, bowel sounds active Extremities: no edema Neurologic: not done Assessment / Acute Cardiac Problems: 1. VT 2. S/p Sleeve Patient Active Problem List: Diabetes mellitus type 2 in obese (HCC) Hypertension History of pulmonary embolism History of kidney stones Chronic knee pain 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 Chronic low back pain Morbid obesity with BMI of 50.0-59.9, adult (HCC) Dyspnea and respiratory abnormality Tachycardia S/P laparoscopic sleeve gastrectomy Plan of Treatment: 1. VT. No further episodes. Continue BB BID. 2. Ok for d/c from cardiology standpoint. [employer] [phone] * Octavio Mcclellan DO - 05/25/2021 5:42 PM EDT Met with patient to discuss oxygen for hypoxic respiratory failure and obstructive sleep apnea. Alternatives discussed. He would like to go home on oxygen at this point. Dx: hypoxic respiratory failure * Dottie Otoole RCP - 05/25/2021 4:45 PM EDT Home Oxygen Evaluation Home Oxygen Evaluation completed. Patient is on 3 liters per minute via nasal cannula. Resting SpO2 = 98% Resting SpO2 on room air = 95% SpO2 on room air with exercise =88% SpO2 on oxygen as above with exercise =95% Nocturnal Oximetry with patient on room air is recommended is SpO2 is between 89% and 95% (requiresadditional order). Dottie Otoole RCP 4:22 PM * Lucio Braswell RN - 05/25/2021 10:30 AM EDT Discussed bariatric discharge instructions with patient, allowed time for questions, had patient demonstrate IS, lovenox teaching done and patient voices understanding * Tona Foreman RN - 05/25/2021 8:32 AM EDT [employer] Documentation Note Admission Dx: S/P laparoscopic sleeve gastrectomy [Z98.84] Past Medical History: has a past medical history of Arthritis, Cellulitis, Diabetes mellitus (HCC),History of echocardiogram, Hypertension, Kidney stone, Obesity, Sciatica, Sleep apnea, Tachycardia,and Uses roller walker. Previous Testing: ECHO 02/04/2020: EF 55-60%, mild LVH, reduced LV diastolic compliance, PA pressure 24 mmHg. Previous office/hospital visit: Dr. Malone 05/23/2021: 1. Hypertension 2. Diabetes mellitus 3. Hyperlipidemia 4. Echocardiogram 01/2020 showed ejection fraction of 55-60% 5. Mild LVH with grade 1 diastolic dysfunction on echocardiogram 01/2020 6. DVT and PE July 2020 has been on Eliquis 7. COVID-19 pneumonia 12/2020 8. Morbid obesity 9. Lymphedema Plan -- 1. Preop risk stratification for gastric sleeve surgery since patient is fairly asymptomatic from cardiac standpoint with unremarkable echocardiogram with preserved LV systolic function his cardiac risk is intermediate and I gave him clearance. 2. Hypertension well controlled currently on Cardura and Avapro in addition to diuretics apparentlyCoreg was discontinued due to low diastolic blood pressure and side effects. Continue to monitor blood pressure at home 3. Hyperlipidemia currently on statins 4. Morbid obesity going for gastric sleeve surgery I advised him lifestyle modifications 5. DVT and PE currently Off anticoagulation 6. Follow-up on an annual basis Tona Foreman RN [employer] * Sonya Ramírez, - 05/25/2021 6:45 AM EDT General Surgery Progress Note PATIENT NAME: Sukhdeep Simental TODAY'S DATE: 05/25/2021, 6:45 AM SUBJECTIVE: Patient seen and examined at bedside. Short run of VT yesterday. EKG and labs ordered, cardiology contacted. No other events overnight. Reports some pain and nausea, controlled with medication. Tolerating liquids. Patient with some urine output, but required straight cath for bladder scan > 500 cc. ROS: Gen: No fever or chills Eyes: No blurry vision or conjunctivitis ENT: No sinus congestion or sore throat CV: No chest pain or dyspnea on exertion Pulm: No cough or shortness of breath GI: Positive for post operative abdominal pain, nausea Renal: No dysuria or hematuria Endo: No excessive sweating or cold intolerance Heme/Onc: No excessive bruising or swollen lymph nodes Neuro: No difficulty with speech or acute extremity weakness Skin: No rashes or ulcers OBJECTIVE: VITALS: BP (!) 155/86 Pulse 104 Temp 98.1 F (36.7 C) (Oral) Resp 14 Ht 5' 9 (1.753 m) Wt(!) 343 lb (155.6 kg) SpO2 98% BMI 50.65 kg/m INTAKE/OUTPUT: Intake/Output Summary (Last 24 hours) at 05/25/2021 0645 Last data filed at 05/25/2021 0400 Gross per 24 hour Intake 900 ml Output 405 ml Net 495 ml PHYSICAL EXAM GEN: alert, awake, oriented, NAD HEENT: normocephalic, no scleral icterus, moist mucous membranes CV: sinus tachycardia on monitor, low 100's LUNG: no respiratory distress, no audible wheezing ABDOMEN: soft, non-distended. Appropriately tender to palpation. Surgical incisions clean and dry with skin glue intact. No surrounding erythema, bleeding, or drainage. EXTREMITIES: no edema, cyanosis or clubbing Data: CBC with Differential: Lab Results Component Value Date WBC 10.8 05/25/2021 RBC 4.04 05/25/2021 HGB 12.2 05/25/2021 HCT 39.5 05/25/2021 PLT 263 05/25/2021 MCV 97.8 05/25/2021 MCH 30.2 05/25/2021 MCHC 30.9 05/25/2021 RDW 13.9 05/25/2021 LYMPHOPCT 16.3 12/03/2020 MONOPCT 9.5 12/03/2020 EOSPCT 2.3 12/03/2020 BASOPCT 0.6 12/03/2020 MONOSABS 0.8 12/03/2020 LYMPHSABS 1.4 12/03/2020 EOSABS 0.2 12/03/2020 BASOSABS 0.1 12/03/2020 BMP: Lab Results Component Value Date NA 139 05/25/2021 K 4.8 05/25/2021 CL 106 05/25/2021 CO2 23 05/25/2021 BUN 24 05/25/2021 LABALBU 3.4 12/03/2020 CREATININE 1.10 05/25/2021 CALCIUM 9.1 05/25/2021 GFRAA >60 05/25/2021 LABGLOM >60 05/25/2021 GLUCOSE 127 05/25/2021 Radiology Review: No results found. ASSESSMENT 1. 55 year old male POD #1 s/p gastric sleeve Plan 1. Continue bariatric CLD 2. Continue telemetry. Follow up Cardiology recommendations 3. Monitor urine output and monitor for urinary retention. Will add Flomax daily. 4. Encourage ambulation and IS use 5. DVT ppx: heparin Sonya Ramírez DO PGY-2 05/25/2021 at 6:45 AM Associated attestation - Octavio Mcclellan DO - 05/25/2021 7:42 PM EDT I have discussed the care of the patient, including pertinent history and exam findings, with the resident. I have seen and examined the patient and the alvarez elements of all parts of the encounter have been performed by me. I agree with the assessment, plan and orders as documented by the resident. * Octavio Mcclellan DO - 05/24/2021 12:32 PM EDT Discussed surgical consents with patient. Discussed risks of bleeding, leak, stricture, infection, PE/DVT, adverse cardiac event or . He was given time again to review the consents, all questions answered. He is aware given he is private pay that should he develop a complication after surgery or need hospitalization or further procedures he could receive further medical bills. He has been given option of medical weight loss and would like to move forward with surgical weight loss * Bennie Painting RN - 05/23/2021 1:51 PM EDT Cardiac clearance on chart for or 05/24/21. * Bennie Painting RN - 05/22/2021 8:43 AM EDT Medical clearance and cardiac clearance on chart.dr mcclellan request update cardiac clearance for or 05/24/21.appt dr malone 05/23/21 * Kraig Napier RN - 05/08/2021 11:52 AM EDT Day of Surgery/Procedure As a patient at [facility] you can expect quality medical and nursing care that is centered on your individual needs. Our goal is to make your surgical experience as comfortableas possible . Directions to the Surgery Center [facility] is located at [address] [place] [address]. Please pull into the Emergency parking lot and stop at the vertical contour band saw operator ojeda. We offer free vertical contour band saw operator service for all our surgery patients, if you choose not to have vertical contour band saw operator parking we have additional parking across the street.You will enter the facility under the blue canopy/walkway following the [facility] sign. Please stop at the reception clerk desk where you will be checked in by the staff. If you have any questions please call [phone]. Transportation after your procedure. You will need a friend or family member to drive you home after your procedure. Your cement mixer driver must be18 years of age or older and able to sign off on your discharge instructions. Taxi cabs or any formof public transportation is not acceptable. It is preferable that the friend or family member stay at the hospital throughout your procedure. Someone must remain with you for the first 24 hours after your surgery if you receive anesthesia ormedication. If you do not have someone to stay with you, your procedure may be cancelled. Patient Instructions If you are having any type of anesthesia you are to have nothing to eat or drink after midnight thenight before your surgery. This includes gum, mints, water or smoking or chewing tobacco. The only exception to this is a small sip of water to take with any morning dose of heart, blood pressure, orseizure medications. Bring a list of all medications you take, along with the dose of the medications and how often you take it. If more convenient bring the pharmacy bottles in a zip lock bag. Please shower the night before and the morning of surgery with an antibacterial soap. Please use the wipes given to you the night before your surgery after your shower. Unless otherwise told by your physician, please do not shave legs or any part of your body below your neck the night before or dayof your surgery. You may shave your face or neck. [place] your teeth but do not swallow water. Bring your inhaler if you are currently using one. Bring your eyeglasses and case with you. No contacts are to be worn the day of surgery. You also may bring your hearing aids. Bring your blood band if one has been given to you. Please do not close the clasp. If you are on C-PAP or Bi-PAP at home and plan on staying in the hospital overnight for your surgery please bring the machine with you. Do not wear any jewelry or body piercings day of surgery. Also, NO lotion, perfume or deodorant to be used the day of surgery. Do not bring any valuables, such as jewelry, zapata or credit cards. If you are staying overnight with us, please bring a SMALL bag of personal items. We cannot accommodate large items, like suitcases. Please wear loose, comfortable clothing. If you are potentially going to have a cast or brace bringclothing that will fit over them. In case of illness If you have cold or flu like symptoms (high fever, runny nose, sore throat, cough, etc.) rash, nausea, vomiting, loose stools, and/or recent contact with someone who has a contagious disease (chicken pox, measles, etc.) Please call your doctor before coming to the hospital. If your child is having surgery please make arrangements for any other children to be cared for at home on the day of surgery. Other children are not permitted in recovery room and we want you to be able to spend time with the patient. If other arrangements are not available then we suggest that you have a second adult to stay in the waiting room. If you have any other questions regarding your procedure or the day of surgery, please call [phone], or [phone] documented in this [facility] Phone: [phone]) 656-183003-31-2022 Hospital Discharge instructions* Discharge Instr - KAMARI* Jenny Lentz RN - 05/25/2021 5:44 PM EDT PHYSICIAN SIGNATURE: * Additional Instructions* Jenny Lentz, RN - 05/26/2021 Discharge Instructions for Bariatric Surgery You had a Laparoscopic Sleeve Gastrectomy (01620) surgery to treat obesity. Recovery from this surgery can take several weeks and requires permanent lifestyle changes. What You Will Need Protein Supplements Bariatric Vitamins Abdominal Binder Incentive spirometer (a breathing device) Home Care It is important to keep the incisions clean and dry to promote healing. Shower with soap and rinse and dry thoroughly. If incisions are oozing, you may cover with clean gauze. Use the incentive spirometer every couple of hours. This is to make sure you are breathing deeply and keeping the air sacs within your lungs as open as possible to prevent respiratory problems. Diet It is important to follow the diet progression very closely in order to prevent complications. When arriving home, follow the Phase 1A Liquid Diet for one weeks. Dehydration and changes in bowelhabits can occur after surgery. Refer to your educational binder provided pre-op for additional information. Once you move to solids, food must be chewed well. When making food choices, you'll need to ensure adequate protein intake, while avoiding sweets and fatty foods. Eating too much or too quickly can cause vomiting or intense pain under your breastbone. Most people quickly learn how much food they can tolerate. Physical Activity When home, we recommend that you take frequent walks, as tolerated, to prevent complications and increase your endurance. Ask your doctor when you will be able to return to work. You may need to wait 2- [address] unless you are no longer using pain medications Do not lift anything over ten pounds for 4 weeks. Medications Remember to avoid aspirin, aspirin-containing products, and nonsteroidal anti- inflammatory drugs (NSAIDs, such as ibuprofen, naproxen, etc.). If you were taking these medications before the procedure, and had to stop, ask your doctor when you can resume taking them. Be sure to review your medications with your primary care provider at yourfollow up office visit. Lifestyle Changes Changing your diet and level of activity are the biggest lifestyle changes associated with your success. Be aware that you may have emotional ups and downs after this surgery. Follow-up Follow up with your primary care physician in one week. Follow up with Dr. Mcclellan in 1 week. If you don't already have a scheduled appointment, please call the office at [phone]. Call Your Doctor If Any of the Following Occurs Monitor your recovery once you leave the hospital. If any of the following occur, call your doctor: Signs of infection, including fever above 100.5F Redness, swelling, increasing pain, excessive bleeding, or any discharge from the incision site Persistent nausea and/or vomiting Pain that you can't control with the medications you've been given Shortness of breath and/or chest pain Tachycardia (racing heart sensation) unrelieved by rest Pain, redness and/or swelling in your feet or legs Sudden onset of severe left shoulder pain or severe abdominal pain Any symptoms that are causing you concern In case of an emergency, call 911 immediately. * Attachments The following attachments cannot be sent through Care Everywhere. * Enoxaparin (Lovenox) (Gibraltarian) * metoprolol (oral/injection) (Gibraltarian) * acetaminophen and oxycodone (Gibraltarian) documented in this [facility] Phone: [phone]) 368-150803-09-2022 Hospital Discharge instructions* Instructions* Etelvina Ledbetter APRN - [employer] - 05/03/2021 Pre-operative Instructions Please arrive at the surgery center by 9:20 AM on 05/24/2021 (or as directed by your surgeon's office). See Directons to Surgery Center below. FASTING NOTHING TO EAT OR DRINK AFTER MIDNIGHT the night prior to surgery (This includes gum, candy, mints,chewing tobacco, etc). EXCEPT GATORADE PER SURGEON (Follow bowel prep instructions if instructed by your surgeon.) MEDICATIONS 1. What to STOP: ANY BLOOD THINNING MEDICATION(S) as directed by your surgeon or prescribing physician. FAILURE TO STOP CERTAIN MEDICATIONS MAY INTERFERE WITH YOUR SCHEDULED SURGERY. According to the medication list you provided today, ACCORDING TO YOUR WELLHEAD PUMPER, PLEASE HOLD ELIQUIS 3 DAYS PRIOR TO SURGERY. 2. What to CONTINUE leading up to your surgery: Please take all your other daily medications except the medications listed above that you were instructed to hold. 3. What to TAKE MORNING OF SURGERY with SMALL SIP OF WATER: irbesartan (Avapro), carvedilol (Coreg), doxazosin (Cardura), and if needed: norco IF APPLICABLE: -If you have been given a blood band, you must bring it with you the day of surgery, unclasped. -Use routine inhalers and bring inhalers the day of surgery. -Bring C-Pap/Bi-pap with you morning of surgery if planning on staying in the hospital overnight. -Do not take diabetic medications on the day of surgery. OTHER IMPORTANT REMINDERS 1) Please REMEMBER to get Covid-19 Screening if scheduled 2) You may be required to provide a urine sample upon your arrival to the pre-op area, so please take this into consideration. 3) If NOT planning on staying in the hospital overnight : A.You will need an adult family member /friend to drive you home after your procedure. Taxi cabs orany form of public transportation ALONE is not acceptable. -Your cement mixer driver must be 18 years of age or older and able to sign off on your discharge instructions. -It is preferable that the friend or family member stay at the hospital throughout your procedure. B. Someone must remain with you once you have arrived home for the first 24 hours after your surgery if you receive anesthesia or medication. If you do not have someone to stay with you, your procedure may be cancelled. 4) Do not wear any jewelry or body piercings day of surgery. 5) In case of illness If you have cold or flu like symptoms (high fever, runny nose, sore throat, cough, etc.) rash, nausea, vomiting, loose stools, and/or recent contact with someone who has a contagious disease (Covid-19, chicken pox, measles, etc.) PLEASE notify your surgeon as soon as possible. 05/03/21 3:27 PM Signature (Provider) Signature (Patient) Day of Surgery/Procedure As a patient at [facility] you can expect quality medical and nursing care that is centered on your individual needs. Our goal is to make your surgical experience as comfortableas possible . Directions to the Surgery Center [facility] is located at [address] [place] [address]. Please pull into the Emergency/Surgery Center parking lot and stop at the vertical contour band saw operator ojeda. We offer free vertical contour band saw operator service for all our surgery patients, if you choose not to have vertical contour band saw operator parking we have additional parking across the street. You will enter the facility under through the glass doors and proceed to registration check-in which is right inside the door. Thereafter you will be directed to the Surgery Center ON THE FIRST FLOOR. Patient Instructions Please shower the night before and the morning of surgery with an antibacterial soap. Please use the cleaning solution (bottle) given to you the night before your surgery after your shower. Unless otherwise told by your physician, please do not shave legs or any part of your body below your neck the night before or day of your surgery. You may shave your face or neck. Please wear loose, comfortable clothing. If you are potentially going to have a cast or brace bringclothing that will fit over them. Bring a list of all medications you take, along with the dose of the medications and how often you take it. If more convenient bring the pharmacy bottles in a zip lock bag. [place] your teeth but do not swallow water. Bring your eyeglasses and case with you. No contacts are to be worn the day of surgery. You also may bring your hearing aids. Do not bring any valuables, such as jewelry, zapata or credit cards. If you are staying overnight with us, please bring a SMALL bag of personal items. We cannot accommodate large items, like suitcases. If your child is having surgery please make arrangements for any other children to be cared for at home on the day of surgery. Other children are not permitted in recovery room and we want you to be able to spend time with the patient. If other arrangements are not available then we suggest that you have a second adult to stay in the waiting room. If you are having any type of anesthesia you are to have nothing to eat or drink after midnight thenight before your surgery. This includes gum, mints, water or smoking or chewing tobacco. The only exception to this is a small sip of water to take with any morning dose of heart, blood pressure, orseizure medications. Bring your inhaler if you are currently using one. Bring your blood band if one has been given to you. Please do not close the clasp. If you are on C-PAP or Bi-PAP at home and plan on staying in the hospital overnight for your surgery please bring the machine with you. Do not wear any jewelry or body piercings day of surgery. Also, NO lotion, perfume or deodorant to be used the day of surgery. If you have any other questions regarding your procedure/surgery please call your surgeon's office. If you have a last minute question(s) the DAY OF your surgery, you may call [phone] documented in this [facility] Phone: evaluation + Plan note Future Appointments Appointment Date:07/16/2022 02:45:00 PM Scheduled Provider:Cecelia MURILLO MD Location:[facility] Appointment Type:URO Office Visit [facility] evaluation + Plan note Future Appointments Appointment Date:02/04/2023 09:15:00 AM Scheduled Provider:Cecelia MURILLO MD Location:[facility] Appointment Type:URO Office Visit General Surgery Laura Evaluation + Plan note Future Appointments Appointment Date:02/03/2024 10:30:00 AM Scheduled Provider:Cecelia MURILLO MD Location:[facility] Appointment Type:URO Office Visit Diagnostic Tests Pending * PSA Total 02/04/23 [facility]* Diagnosis Pre-op chest exam Pre-operative respiratory examination documented in this encounter [employer] Phone: evaliwusgk note* Diagnosis S/P laparoscopic sleeve gastrectomy- Primary documented in this encounter [employer] Phone: evalupuddp noteNo InformationNort LMN-1 Other Evaluation noteNo assessment information available [facility] Work Phone: Evaluation note* Diagnosis Lumbar adjacent segment disease with spondylolisthesis- Primary Lumbar adjacent segment disease with spondylolisthesis documented in this encounter [facility] note* Diagnosis Lumbar adjacent segment disease with spondylolisthesis- Primary documented in this encounter [facility] note* Diagnosis Lumbar adjacent segment disease with spondylolisthesis- Primary documented in this encounter [facility] note* Diagnosis Radiculopathy, lumbar region- Primary Thoracic or lumbosacral neuritis or radiculitis, unspecified documented in this encounter [facility] note* Diagnosis Onset Date Resolution Status CKD (chronic kidney disease) stage 3, GFR 30-59 ml/min acute [id number] acute Hyperuricemia acute Microscopic hematuria acute Nephrolithiasis acute Secondary hyperparathyroidism acute Type 2 diabetes 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 acute [facility] Work Phone: [facility] general Narrative - Reported* Type Description Date Medical History RENAL CALCULUS, LEFT Medical History DISTAL URETERAL CALCULUS, RIGHT Medical History TEAR OF MEDIAL MENISCUS, RIGHT K NEE Medical History HEMATURIA Medical History PANIC ATTACK Medical History DEPRESSION Medical History IRRITABLE BOWEL SYNDROME Medical History KNEE OSTEOARTHRITIS Surgical History LEFT TOTAL KNEE ARTHROPLASTY Surgical History RIGHT KNEE ARTHROPLASTY x2 03/25 Surgical History VASECTOMY Surgical History LUMBAR DISKECTOMY L4-L5 10/16/18 Surgical History CYSTOSCOPY RIGHT RENAL CALCULI Surgical History CYSTOSCOPY LEFT Surgical History CYSTOSCOPY RIGHT URETERAL STENT REMOVAL Surgical History GASTRIC SLEEVE 04/2021 Hospitalization History SEE ABOVE [facility] Other [facility] Narrative - Reported* Type Description Date Medical History RENAL CALCULUS, LEFT Medical History DISTAL URETERAL CALCULUS, RIGHT Medical History TEAR OF MEDIAL MENISCUS, RIGHT K NEE Medical History HEMATURIA Medical History PANIC ATTACK Medical History DEPRESSION Medical History IRRITABLE BOWEL SYNDROME Medical History KNEE OSTEOARTHRITIS Medical History KNEE INFECTION Surgical History LEFT TOTAL KNEE ARTHROPLASTY Surgical History RIGHT KNEE ARTHROPLASTY x2 03/25 Surgical History VASECTOMY Surgical History LUMBAR DISKECTOMY L4-L5 10/16/18 Surgical History CYSTOSCOPY RIGHT RENAL CALCULI Surgical History CYSTOSCOPY LEFT Surgical History CYSTOSCOPY RIGHT URETERAL STENT REMOVAL Surgical History GASTRIC SLEEVE 04/2021 Surgical History KNEE JOINT REMOVED 12/2021 Surgical History NEW TOTAL KNEE REPLACEMENT 04/16 22 Hospitalization History SEE ABOVE [facility] Other Hospital course Narrative No data available for this section [facility] Hospital Discharge instructions No data available for this section General Surgery [place] InstructionsNot on filedocumented in this encounter [facility] No data available for this section [facility] reason for referral (narrative)* Diagnostic Procedure Only (Routine) - Pending Review Specialty Diagnoses / Procedures Referred By Contac t Referred To Contact XR IMAGING Diagnoses Lumbar adjacent segment disease with spondylolisthesis Procedures XR LUMBAR LIMITED 2V AP/LAT RADEX SPINE LUMBOSACRAL 2/3 VIEWS Helen Morgan PA-C [address] [place] [address] Xr Imaging [facility] Referral ID Status Reason Start Date Expiration Date Visits Requested Visits Authorized [id number] Pending Review Auto-Generat ed Referral 3 01/19/2024 1 1 [facility] for referral (narrative)* Diagnostic Procedure Only (Routine) - Pending Review Specialty Diagnoses / Procedures Referred By Contac t Referred To Contact XR IMAGING Diagnoses Radiculopathy, lumbar region Procedures XR LUMBAR LIMITED 2V AP/LAT RADEX SPINE LUMBOSACRAL 2/[place] [address] [place] [address] Xr Imaging [facility] Referral ID Status Reason Start Date Expiration Date Visits Requested Visits Authorized [id number] Pending Review Auto-Generat ed Referral 05/08/2023 06/06/2024 1 1 [facility] for visit Narrative* Auth/Cert Specialty Diagnoses / Procedures Referred By Contac t Referred To Contact Diagnoses Morbid obesity (HCC) Type II diabetes circulatory disorder causing erectile dysfunction (HCC) Hypertension MORBID OBESITY, TYPE II DIABETES, HYPERTENSION Procedures W[place] LAP, JUAN RESTRICT PROC, LONGITUDINAL GASTRECTOMY XI ROBOTIC LAPOROSCOPIC GASTRECTOMY SLEEVE, LIVER BIOPSY, EGD- GI SCHEDULED Octavio Mcclellan DO [address] [address] [employer] [address] [place] [address] Referral ID Status Reason Start Date Expiration Date Visits Re quested Visits Authorized [id number] 1 1 [employer] Phone: Advance Directives Documents on File Type Date Recorded Patient Firebreak Cutter Expl anation Advance Directives and Living Will Power of Physical Therapy Assistant Instructor Advance Directive Response Recorded Date/ Time Advance Directives No September 16 2:32pm Documents on File Type Date Recorded Patient Firebreak Cutter Expl anation ACP-Advance Directive ACP-Power of Physical Therapy Assistant Instructor Documents on File Type Date Recorded Patient Firebreak Cutter Expl anation ACP-Advance Directive ACP-Power of Physical Therapy Assistant Instructor Latest Code Status on File Code Status Date Activated Date Inactivated Comments Full Code 05/24/2021 4:29 PM Advance Directive Response Recorded Date/ Time Advance Directives No September 16 3:32pm Summary Purpose Family History Relationship Condition Age at Onset Recorded Date/T kelsi Not Specified History of gastric bypass Unknown father Malignant neoplasm of oral cavity Unknown Malignant neoplasm of pharynx Unknown Relationship Condition Age at Onset Recorded Date/T eklsi mother History of gastric bypass Unknown father Malignant neoplasm of oral cavity Unknown Malignant neoplasm of pharynx Unknown father Malignant neoplasm Unknown Unknown mother Heart disease Unknown Diabetes mellitus Unknown Hypertension Unknown son Heart disease Unknown Aneurysm Unknown Assessments Diagnosis Injury Injury, other and unspecified, unspecified site Diagnosis Fluid retention in legs- Primary Edema Diagnosis Acute bilateral low back pain with right-sided sciatica- Primary Traumatic buttock pain Reason for Referral Status Reason Specialty Diagnoses / Procedures Referred By Contact Referred To Contact Closed Cardiovascular Medicine Diagnoses Fluid retention in legs Alexandro Muhammad MD [address] [place] [id number] Cj John MD [address] [place] [id number] Scheduling Instructions . Specialty Diagnoses / Procedures Referred By Contac t Referred To Contact [facility] [place] Diagnoses Lumbar adjacent segment disease with spondylolisthesis Procedures CONSULT TO [facility] OFFICE/OUTPATIENT [facility] 60-[place] [address] [place] [address] Referral ID Status Reason Start Date Expiration Date Visits Requested Visits Authorized [id number] Pending Review PCP Requested Referral 11/05/2022 11/05/2023 1 1 Specialty Diagnoses / Procedures Referred By Contac t Referred To Contact [facility] Diagnoses Lumbar adjacent segment disease with spondylolisthesis Procedures CONSULT TO PHYSICAL THERAPY PHYSICAL THERAPY EVALUATION [facility] 45 MINS Riddhi Goss, RANGE MECHANIC.MICA [employer]ER BLASTING [address] [place] [address] [facility] [place] [address] [place] [address] Referral ID Status Reason Start Date Expiration Date Visits Requested Visits Authorized [id number] Pending Review Auto-Generat ed Referral 3 02/07/2024 1 1 History of Present Illness * Alexandro Muhammad MD - 01/08/2020 1:30 PM EST HPI: Patient is here today to be evaluated for right knee pain. He is a pleasant 54 y.o. male. He is here today as a referral from Dr. Silverio. Primary complaint is pain and discomfort. He has experienced a progressive decline in physical function and quality of life secondary to the discomfort in the right knee. He is status post a right total knee revision arthro[place] [address] Silverio with the primary knee being done in 2013. The more he is on it, the more it hurts. His primary complaint is with instability. He presents with excessive swelling in bilateral lower legs. He reports he has been treated in the past by [employer] financial developer as well as his PCP. They contribute his swe lling to his current increased BMI. His pain is a 8 on a 10 point scale today. At this point, he isinterested in what options are available to him today. PHYSICAL EXAM: This is an alert, oriented, and age-appropriate male. He is in no distress. Pleasantand cooperative. EXTREMITIES: The lower extremities have no gross deformities. Normal stability. Skin Intact. 5/5 motor. Intact sensation. Normal neurovascular status. Normal coordination. Excessive swelling in bilateral lower legs. Range of motion upon exam today is 0-120. Grossly instability withflexion and extension. Painful range of motion. Full motion of hip. No pain. No impingement. No instability. Contralateral leg has normal alignment. Full motion. No pain. No impingement. No instability. IMAGING: Plain film radiographs were reviewed. He has a right total knee revision arthroplasty in fair position and alignment, Emerald implant prosthesis. IMPRESSION: 1.) Status post a right total knee revision arthroplasty. 2.) Flexion and extension instability, right prosthetic knee. 3.) Obesity, increased BMI. PLAN: I have reviewed my findings with patient. We have gone over the diagnosis and treatment and have talked about his options for management. We discussed his need for a right total knee revision and the associated pros and cons. We also discussed his current BMI and its elevated risks in relation to the postoperative recovery of a total knee revision arthroplasty. I explained in depth the reasoning behind my recommendation. A weight loss goal amount was calculated and given to patient. He understands the importance of this, agrees with my recommendation in order to receive the best possible outcomes and lowest risk for complications. He will work towards achieving the weight loss goal. On ce he has reached the goal, he will call my office. In the meantime, I recommend a brace for his instability as well as a referral to Dr. John or Dr. Pruett for a second opinion on the water retention in the bilateral lower legs. I will make that referral today. He is in agreement with this plan of care going forward. All questions were answered. He has no further questions. Next appointment will be left open to him. Vitals: 01/08/20 1404 Temp: 96.7 degrees F (35.9 degrees C) TempSrc: Temporal Weight: (!) 147.4 kg (325 lb) Height: 1.753 m (5' 9 ) Pain Presence of Pain: complains of pain/discomfort Pain Location: knee, right Select Pain Scale: DVPRS (Defense and Veterans Pain Rating Scale) (Adult- Cognitively Intact) Pain Location: knee, right Select Pain Scale: DVPRS (Defense and Veterans Pain Rating Scale) (Adult- Cognitively Intact) Recent Labs No results found for: CRP No results found for: SEDRATE No results found for: WBC, WBCCOUNT, WBCFETAL, HGB, HCT, PLATELET, MCV Past Medical History: Diagnosis Date Cellulitis left and right ankle Past Surgical History: Procedure Laterality Date BACK SURGERY 06/2019 fusion ARTHROPLASTY KNEE TOTAL Right 03/22/2014 Revision ANKLE SURGERY spurs ARTHROPLASTY KNEE TOTAL Left BACK SURGERY L4-L5 History reviewed. No pertinent family history. Social History Socioeconomic History Marital status: Spouse name: Not on file Number of children: Not on file Years of education: Not on file Highest education level: Not on file Occupational History Not on file Social Needs Financial resource strain: Not on file Food insecurity Worry: Not on file Inability: Not on file Transportation needs Medical: Not on file Non-medical: Not on file Tobacco Use Smoking status: Never Smoker Smokeless tobacco: Never Used Substance and Sexual Activity Alcohol use: Never Frequency: Never Drug use: Never Sexual activity: Not on file Lifestyle Physical activity Days per week: Not on file Minutes per session: Not on file Stress: Not on file Relationships Social connections Talks on phone: Not on file Gets together: Not on file Attends jain service: Not on file Active member of club or organization: Not on file Attends meetings of clubs or organizations: Not on file Relationship status: Not on file Intimate partner violence Fear of current or ex partner: Not on file Emotionally abused: Not on file Physically abused: Not on file Forced sexual activity: Not on file Other Topics Concern Not on file Social History Narrative Not on file Current Outpatient Medications: amitriptyline 50 MG tablet, 1-3 tablet at bedtime, Disp: , Rfl: amLODIPine 10 MG tablet, Take 10 mg by mouth daily., Disp: , Rfl: carveDILOL (Coreg) 25 MG tablet, , Disp: , Rfl: cetirizine 10 MG tablet, Take 10 mg by mouth at bedtime., Disp: , Rfl: Dapagliflozin Propanediol (Farxiga) 5 MG tablet, 1 tablet, Disp: , Rfl: Dulaglutide (Trulicity) 0.75 MG/0.5ML Solution Pen-injector injection, as directed, Disp: , Rfl: gliMEPIride 4 MG tablet, Take 4 mg by mouth daily., Disp: , Rfl: indomethacin 50 MG capsule, Every 6 hours., Disp: , Rfl: irbesartan (Avapro) 300 MG tablet, 1 tablet, Disp: , Rfl: pioglitazone 30 MG tablet, Take 30 mg by mouth daily., Disp: , Rfl: simvastatin 10 MG tablet, 1 tablet in the evening, Disp: , Rfl: tiZANidine (Zanaflex) 4 MG tablet, Every 8 hours., Disp: , Rfl: Allergies Allergen Reactions Betadine [Povidone Iodine] Rash * Tima Bacon LPN - 01/08/2020 1:30 PM EST Ortho Nurse Patient Intake Room#: 2 Right knee pain of 8 , Dr Silverio revision 03-22-14, he has been back to Dr Silverio and he referred to Dr Muhammad Date: 01/08/2020 2:19 PM Patient: Sukhdeep Simental MR#: [id number] : 1965 Age: 54 y.o. Referring Physician: Alexandro Muhammad MD Insurance: Payor: AETNA / Plan: AETNA / Product Type: *No Product type* / Chief Complaint Patient presents with Right Knee - Pain Visit Vitals Temp 96.7 F (35.9 C) (Temporal) Ht 1.753 m (5' 9 ) Wt (!) 147.4 kg (325 lb) BMI 47.99 kg/m Pain Presence of Pain: complains of pain/discomfort Pain Location: knee, right Select Pain Scale: DVPRS (Defense and Veterans Pain Rating Scale) (Adult- Cognitively Intact) Pain Location: knee, right Select Pain Scale: DVPRS (Defense and Veterans Pain Rating Scale) (Adult- Cognitively Intact) Recent Labs No results found for: CRP No results found for: SEDRATE No results found for: WBC, WBCCOUNT, WBCFETAL, HGB, HCT, PLATELET, MCV History No past medical history on file. Past Surgical History: Procedure Laterality Date BACK SURGERY 06/2019 fusion ARTHROPLASTY KNEE TOTAL Right 03/22/2014 Revision ANKLE SURGERY spurs ARTHROPLASTY KNEE TOTAL Left BACK SURGERY L4-L5 Family History: His family history is not on file. Social History: His reports that he has never smoked. He has never used smokeless tobacco. He reports that he does not drink alcohol or use drugs. Additional Social History Y N Notes Do you live alone? [] [x] Who lives with you: Do you have children? [x] [] How many: 2 Do you currently work? 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 [] [x] How many do you have to climb to enter your home: What services do you currently receive at home? [] [x] Name: Do you have transportation to go to outpatient therapy if needed? [x] [] What Equipment do you have at home? [x] [] []Walker, []Crutches, []Commode Chair, []Shower []Chair,[]cane, []bracing Are you followed by a electronics production supervisor? [] [x] Name: Are you followed by pain management? [x] [] Name: Dr Jose Campbell pain manage Are you followed by any other specialists? [] [x] Name: Outpatient Medications Prior to Visit Medication Sig Dispense Refill amitriptyline 50 MG tablet 1-3 tablet at bedtime amLODIPine 10 MG tablet Take 10 mg by mouth daily. carveDILOL (Coreg) 25 MG tablet cetirizine 10 MG tablet Take 10 mg by mouth at bedtime. Dapagliflozin Propanediol (Farxiga) 5 MG tablet 1 tablet Dulaglutide (Trulicity) 0.75 MG/0.5ML Solution Pen-injector injection as directed gliMEPIride 4 MG tablet Take 4 mg by mouth daily. indomethacin 50 MG capsule Every 6 hours. irbesartan (Avapro) 300 MG tablet 1 tablet pioglitazone 30 MG tablet Take 30 mg by mouth daily. simvastatin 10 MG tablet 1 tablet in the evening tiZANidine (Zanaflex) 4 MG tablet Every 8 hours. No facility-administered medications prior to visit. Current Outpatient Medications: amitriptyline 50 MG tablet, 1-3 tablet at bedtime, Disp: , Rfl: amLODIPine 10 MG tablet, Take 10 mg by mouth daily., Disp: , Rfl: carveDILOL (Coreg) 25 MG tablet, , Disp: , Rfl: cetirizine 10 MG tablet, Take 10 mg by mouth at bedtime., Disp: , Rfl: Dapagliflozin Propanediol (Farxiga) 5 MG tablet, 1 tablet, Disp: , Rfl: Dulaglutide (Trulicity) 0.75 MG/0.5ML Solution Pen-injector injection, as directed, Disp: , Rfl: gliMEPIride 4 MG tablet, Take 4 mg by mouth daily., Disp: , Rfl: indomethacin 50 MG capsule, Every 6 hours., Disp: , Rfl: irbesartan (Avapro) 300 MG tablet, 1 tablet, Disp: , Rfl: pioglitazone 30 MG tablet, Take 30 mg by mouth daily., Disp: , Rfl: simvastatin 10 MG tablet, 1 tablet in the evening, Disp: , Rfl: tiZANidine (Zanaflex) 4 MG tablet, Every 8 hours., Disp: , Rfl: Allergies: He is allergic to betadine [povidone iodine]. Y N Are you allergic to any metals? [] [x] If yes, what metals: Review of Systems System Y N Symptoms Constitutional [] [x] Weight Loss [] [x] Weight Gain [] [x] Chronic Fever [x] [] Insomnia Eyes [] [x] Resent Vision Change [] [x] Cataracts [] [x] Glaucoma [] [x] Any Hx of Metal Fragments in the Eye ENT [] [x] Loss of hearing [] [x] Hearing Aids [x] [] Seasonal Allergies [] [x] Dental Issues Cardiovascular [] [x] Chest Pain [] [x] Angina [] [x] Stent [x] [] Hypertension [] [x] Heart Murmur [] [x] Irregular Pulse [] [x] Pacemaker [] [x] Palpitations [x] [] High cholesterol Respiratory [] [x] Wheezing [] [x] Shortness of Breath [] [x] Pneumonia [] [x] Bronchitis [x] [] Sleep Apnea [] [x] COPD [] [x] Date/ LOC of last CXR: Gastrointestinal [] [x] Heartburn [] [x] Indigestion [] [x] Constipation [] [x] Ulcer [] [x] GI Stomach Bleed [] [x] Diarrhea [] [x] Colon Cancer [] [x] Acid Reflux [] [x] Blood in Stools Musculoskeletal [x] [] Arthritis [] [x] Muscle Weakness [x] [] Joint Pain [x] [] Back Pain [] [x] Fibromyalgia [] [x] Bone Infection [] [x] Swelling Multiple Joints [] [x] Reflex Sympathetic Dystrophy Skin [] [x] Chronic Rash [] [x] Ulcers [] [x] Eczema [] [x] Psoriasis [] [x] Skin Cancer [] [x] Melanoma Neurologic [] [x] Numbness [] [x] Weakness or loss of sensation in arms or legs [] [x] Leg Pain / Sciatica [] [x] Headaches [] [x] Loss of bowel or bladder control Psychiatric [x] [] Anxiety [x] [] Claustrophobia [] [x] Other Psychiatric Problems Hematologic [] [x] Easy Bruising [] [x] Easy Bleeding [] [x] Blood Transfusion Date: Endocrine [] [x] Hypothyroid [] [x] Hyperthyroid [] [x] Hot Flashes [] [x] Hormone Replacement [x] [] Prednisone Use Does pt have dentures? 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 * Back Pain (Gibraltarian) documented in this encounter Additional Source Comments (unrecognized sect ion and content) No Status Records FoundNo Status Records FoundNo Status Records FoundNo Status Records FoundNo Status Records FoundNo Status Records FoundNo Status Records FoundNo Status Records FoundNo Status Records FoundNo Status Records FoundNo Status Records FoundNo Status Records Found INFORMATION SOURCE (unrecogn ized section and content) DATE CREATED AUTHOR 04/18/2019 [facility] DATE CREATED AUTHOR AUTHOR'S ORGANIZ ATION 06/10/2019 [facility] DATE CREATED AUTHOR AUTHOR'S ORGANIZ ATION 07/21/2021 [facility] DATE CREATED AUTHOR AUTHOR'S ORGANIZ ATION 10/22/2021 [facility] DATE CREATED AUTHOR AUTHOR'S ORGANIZ ATION 01/23/2022 [facility] DATE CREATED AUTHOR AUTHOR'S ORGANIZ ATION 08/04/2022 [facility] DATE CREATED AUTHOR AUTHOR'S ORGANIZ ATION 10/27/2022 [facility] DATE CREATED AUTHOR AUTHOR'S ORGANIZ ATION 12/12/2022 [facility] DATE CREATED AUTHOR AUTHOR'S ORGANIZ ATION 02/11/2023 [facility] DATE CREATED AUTHOR AUTHOR'S ORGANIZ ATION 07/27/2023 [facility] DATE CREATED AUTHOR AUTHOR'S ORGANIZ ATION 08/17/2023 [facility] DATE CREATED AUTHOR AUTHOR'S ORGANIZ ATION 10/07/2023 [facility] Reason for Visit (unrecogniz ed section and content) Status Reason Specialty Diagnoses / Procedures Referred By Contact Referred To Contact Pending Review Diagnoses Hx of total knee arthroplasty, right Procedures XR BONE LENGTH STUDY Alexandro Muhammad MD [address] [place] [id number] Reason Comments Pain Status Reason Specialty Diagnoses / Procedures Referred By Contact Referred To Contact Closed Cardiovascular Medicine Diagnoses Localized edema Procedures ECHOCARDIOGRAM [place] ECHO HEART XTHORACIC,COMPLETE W DOPPLER Suzanne Pruett MD [address] [place] [address] [address] Buc Echocardiograph y [address] [place] [address] Reason Comments Back Pain Lower back pain s/p slip on ice Buttocks Pain Rt buttocks pain Reason Comments New Patient Lumbar spine Specialty Diagnoses / Procedures Referred By Contac t Referred To Contact Neurosurgery / NEUROSURGERY Diagnoses lumbar spine eHealth records requested Procedures REFERRAL TO [facility] FINANCIAL COUNSELOR NEW SPINE SURGICAL TRIAGE Jason Kiser [address] [place] [address] [place] [address] [place] [address] Referral ID Status Reason Start Date Expiration Date V isits Requested Visits Authorized [id number] Outside PCP 11/05/2022 01/04/2023 99 99 Reason Comments Medication Problem Reason Comments post op update Reason Comments FMLA Paperwork Reason Comments Opened In Error Reason Comments Post Op Staple removal Specialty Diagnoses / Procedures Referred By Contac t Referred To Contact Neurosurgery / NEUROSURGERY Diagnoses Follow-up examination post op visit Procedures OFFICE/OUTPATIENT ESTABLISHED MOD MDM 30-39 MIN POST OP NEUS/NRES Self Myrna Schrader PA-C [id number] [place] [address] Referral ID Status Reason Start Date Expiration Date Visits Re quested Visits Authorized [id number] Closed 12/20/2022 02/24/2023 1 1 Reason Comments Received Outside Medical Records promedi ca Reason Comments Follow Up Specialty Diagnoses / Procedures Referred By Contac t Referred To Contact Neurosurgery / NEUROSURGERY Diagnoses Follow-up exam Follow Up Procedures OFFICE/OUTPATIENT ESTABLISHED MOD MDM 30-39 MIN EST NI PATIENT Self Myrna Schrader PA-C [id number] [place] [address] Referral ID Status Reason Start Date Expiration Date Visits Re quested Visits Authorized [id number] Closed 02/07/2023 02/07/2023 1 1 Reason Comments PT Certification Specialty Diagnoses / Procedures Referred By Contac t Referred To Contact Neurosurgery / NEUROSURGERY Diagnoses Lumbar adjacent segment disease with spondylolisthesis discuss imaging and BWC requirements Procedures PHYS/QHP TELEPHONE EVALUATION 5-10 MIN [place] [address] [place] [address] Referral ID Status Reason Start Date Expiration Date V isits Requested Visits Authorized [id number] Denied Patient Cleared - Admin/Chairm an/Director advise to proceed or did not respond 05/08/2023 08/06/2023 1 0 Reason Comments Imaging Disc Reason Comments Appointment Orders Reason Comments Results Care Teams (unrecognized sec tion and content) Team Status: Active Member Role Status Dates PHYSICIAN NO FAMILY Primary Care Provider Active Team Status: Active Member Role Status Dates PHYSICIAN NO FAMILY Primary Care Provider Active Start: October 29, 2023 Oumuo Weinstein MD Attending Provider Active Start : October 29, 2023 Team Status: Inactive Member Role Status Dates PHYSICIAN NO FAMILY Primary Care Provider Active Start: November 07, 2023 End: November 07, 2023 Oumou Weinstein MD Attending Provider Active Start : November 07, 2023 End: November 07, 2023 Hl7 Interface Developer Relationship Specialty Start Date End Date Derick Isabel MD [address] [place] [address] PCP - General Family Medicine 04/11/19 Hl7 Interface Developer Relationship Specialty Start Date End Date Derick Isabel MD [address] [place] [address] PCP - General Family Medicine 04/11/19 Hl7 Interface Developer Relationship Specialty Start Date End Date Derick Isabel MD [address] [place] [address] PCP - General Family Medicine 04/11/19 Hl7 Interface Developer Relationship Specialty Start Date End Date Derick Isabel MD [address] [place] [address] PCP - General Family Medicine 04/11/19 Team Status: Inactive Member Role Status Dates STEPH Sarkar Attending Provider Active Team Status: Inactive Member Role Status Dates PHYSICIAN NO FAMILY Primary Care Provider Active Gianni Richter DO Attending Provider Active Team Status: Inactive Member Role Status Dates STEPH Sarkar Attending Provider Active PHYSICIAN NO FAMILY Primary Care Provider Active Team Status: Active Member Role Status Dates PHYSICIAN NO FAMILY Primary Care Provider Active Hl7 Interface Developer Relationship Specialty Start Date End Date Derick Isabel MD PCP - General Family Medicine 11/06/13 Hl7 Interface Developer Relationship Specialty Start Date End Date Derick Isabel MD PCP - General Family Medicine 11/06/13 Hl7 Interface Developer Relationship Specialty Start Date End Date Derick Isabel MD PCP - General Family Medicine 11/06/13 Hl7 Interface Developer Relationship Specialty Start Date End Date Derick Isabel MD PCP - General Family Medicine 11/06/13 Hl7 Interface Developer Relationship Specialty Start Date End Date Derick Isabel MD PCP - General Family Medicine 11/06/13 Hl7 Interface Developer Relationship Specialty Start Date End Date Derick Isabel MD PCP - General Family Medicine 11/06/13 Hl7 Interface Developer Relationship Specialty Start Date End Date Derick Isabel MD PCP - General Family Medicine 11/06/13 Hl7 Interface Developer Relationship Specialty Start Date End Date Derick Isabel MD PCP - General Family Medicine 11/06/13 Hl7 Interface Developer Relationship Specialty Start Date End Date Derick Isabel MD PCP - General Family Medicine 11/06/13 Hl7 Interface Developer Relationship Specialty Start Date End Date Derick Isabel MD PCP - General Family Medicine 11/06/13 Hl7 Interface Developer Relationship Specialty Start Date End Date Derick Isabel MD PCP - General Family Medicine 11/06/13 Hl7 Interface Developer Relationship Specialty Start Date End Date Derick Isabel MD PCP - General Family Medicine 11/06/13 Hl7 Interface Developer Relationship Specialty Start Date End Date Derick Isabel MD [address] [place] [address] PCP - General Family Medicine 10/08/18 Team Status: Active Member Role Status Dates PHYSICIAN NO FAMILY Primary Care Provider Active Start: October 29, 2023 Oumou Weinstein MD Attending Provider Active Start : October 29, 2023 Team Status: Inactive Member Role Status Dates PHYSICIAN NO FAMILY Primary Care Provider Active Start: November 07, 2023 End: November 07, 2023 Oumou Weinstein MD Attending Provider Active Start : November 07, 2023 End: November 07, 2023 Ordered Prescriptions (unrec ognized section and content) Prescription Sig Dispensed Refills Start Date End Da te enoxaparin (LOVENOX) 100 MG/ML injection Inject 1 mL into the skin 2 times daily for 10 days 20 mL 0 05/26/2021 06/05/2021 promethazine (PHENERGAN) 25 MG tablet Take 1 tablet by mouth every 6 hours as needed for Nausea 30 tablet 0 05/25/2021 oxyCODONE-acetaminophen (PERCOCET) 5-325 MG per tabletIndications:S/P laparoscopic sleeve gastrectomy Take 1 tablet by mouth every 6 hours as needed for Pain for up to 7 days. Intended supply: 7 days. Take lowest dose possible to manage pain 28 tablet 0 05/25/2021 06/01/2021 metoprolol tartrate (LOPRESSOR) 25 MG tablet Take 1 tablet by mouth 2 times daily 60 tablet 0 05/25/2021 06/24/2021 enoxaparin (LOVENOX) 100 MG/ML injection Inject 1 mL into the skin 2 times daily 60 mL 0 05/25/2021 05/26/2021 Scheduled Active and Recently Administ ered Medications (unrecognized section and content) Medication Order 05/24/2021 05/25/2021 05/26/2021 aprepitant (EMEND) capsule 80 mg 80 mg, Oral, DAILY, First dose on Yaquelin 05/25/21 at 1815, Until Discontinued 1839 (Given - Provider: Milagros Reich RN) 0981 (Given - Provider: Jenny Lentz RN) ceFAZolin (ANCEF) 1,000 mg in sterile water 10 mL IV syringe (COMPLETED) 1,000 mg, IntraVENous, EVERY 8 HOURS, 2 doses, First dose (after last modification) on Sat05/24/21 at 2100, Last dose on Sat05/25/21 at 0500, Antimicrobial Indications: Surgical Prophylaxis, Administer over 5 mins. Reconstitute 1 g vial with 2.5 mL Sterile Water. Withdraw 3.1 mL from vial and further dilute with 6.9 mL Sterile Water (final administration volume=10 mL). 2117 (Given - Provider: Giselle Painting RN) 536 (Given - Provider: Giselle Painting RN) enoxaparin (LOVENOX) injection 60 mg 60 mg, SubCUTAneous, 2 TIMES DAILY, First dose on Sat05/24/21 at 2100, Until Discontinued, Pharmacy to dose if renal insufficiency present. 2116 (Given - Provider: Giselle Painting RN) 0843 (Given - Provider: Milagros Reich, BRETT)2131 (Given - Provider: Batsheva Carias, RN) 09 (Given - Provider: Jenny Lentz, RN)2099 (Due) famotidine (PEPCID) 20 mg in sodium chloride (PF) 10 mL injection(Linked Group 1) 20 mg, IntraVENous, 2 TIMES DAILY, First dose on Sat05/24/21 at 2100, Until Discontinued, Administer if oral route cannot be used, Post-op 2116 (See Alternative - Provider: Giselle Painting RN) 0839 (See Alternative - Provider: Milagros Reich, BRETT)2131 (See Alternative - Provider: Batsheva Carias, RN) 100 (See Alternative - Provider: Jenny Lentz, RN)2099 (Due) famotidine (PEPCID) tablet 20 mg(Linked Group 1) 20 mg, Oral, 2 TIMES DAILY, First dose on Sat05/24/21 at 2100, Until Discontinued, Post-op 2116 (Given - Provider: Giselle Painting RN) 0839 (Given - Provider: Milagros Reich, BRETT)2131 (Given - Provider: Batsheav Carias, BRETT) 100 (Given - Provider: Jenny Lentz, BRETT)2099 (Due) gabapentin (NEURONTIN) capsule 100 mg 100 mg, Oral, 3 TIMES DAILY, First dose on Sat05/24/21 at 1530, Until Discontinued 153 (Due)2117 (Given - Provider: Giselle Painting RN) 0838 (Not Given - Provider: Milagros Reich RN - Reason: Patient/family refused)1405 (Not Given - Provider: Milagros Reich RN - Reason: Patient/family refused)2131 (Not Given - Provider: Batsheva Carias, RN - Reason: Patient/family refused) 0900 (Not Given - Provider: Jenny Lentz, RN - Reason: Patient/family refused)1400 (Due)2100 (Due) ipratropium-albuterol (DUONEB) nebulizer solution 1 ampule 1 ampule, Inhalation, EVERY 6 HOURS WHILE AWAKE, First dose on Sat05/24/21 at 1530, Until Discontinued, Initiate RT Bronchodilator Protocol: Yes, q6 hours and PRN 1530 (Due)2057 (Not Given - Provider: Naheed Fernando RCP - Reason: Other - Comment: pt. sleeping) 0745 (Given - Provider: Dottie Otoole RCP)1301 (Given - Provider: Dottie Otoole REFINERY OPERATOR [employer]OV[employer] UNIT)1949 (Given - Provider: Yamilka Doyle REFINERY OPERATOR [employer]IT) 0729 (Not Given - Provider: Swapna De Anda RCP - Reason: Patient/family refused - Comment: pt stated he wants to sleep)1400 (Due)2000 (Due) metoprolol (LOPRESSOR) injection 5 mg (CANCELED) 5 mg, IntraVENous, EVERY 6 HOURS, First dose on Sat05/24/21 at 1530, Until Discontinued 1756 (Given - Provider: Milagros Reich RN) 0015 (Given - Provider: Giselle Painting RN)0605 (Given - Provider: Giselle Painting RN)1148 (Given - Provider: Milagros Reich RN) metoprolol tartrate (LOPRESSOR) tablet 25 mg 25 mg, Oral, 2 TIMES DAILY, First dose on Yaquelin 05/25/21 at 1315, Until Discontinued 1408 (Given - Provider: Milagros Reich RN)2132 (Given - Provider: Batsheva Carias, RN) 1009 (Given - Provider: Jenny Lentz, RN)2100 (Due) scopolamine (TRANSDERM-SCOP) transdermal patch 1 patch (CANCELED) 1 patch, TransDERmal, Administer over 72 Hours, EVERY 72 HOURS, First dose on Sat05/24/21 at 1700, 1.5 mg patch delivers 1 mg over 3 days. Apply patch to hairless area behind the ear., Post-op 1714 (Patch Applied - Provider: Milagros Reich RN) 1629 (Patch Removed - Provider: Milagros Reich RN - Comment: Time automatically adjusted from order being discontinued) sodium chloride flush 0.9 % injection 5-40 mL 5-40 mL, IntraVENous, EVERY 12 HOURS SCHEDULED (2 times per day), First dose on Sat05/24/21 at 2100, Until Discontinued, For Line Patency: Peripheral IV = 5 mL; Midline or Central Line = 10 mL/lumen. If following IV push medication, administer flush at same rate as the IV push. Flush volume is determined by type of infusion therapy being given. For non-viscous solutions use: Peripheral IV = 5 mL Midline or Central Line = 10 mL/lumen For viscous solutions (i.e. blood components, parenteral nutrition, contrast media, or after obtaining blood sample) use: Peripheral IV = 10 mL Midline or Central Line = 20 mL/lumen, Post-op 211 (Not Given - Provider: Giselle Painting RN - Reason: IV Fluid Infusing) 0838 (Not Given - Provider: Milagros Reich RN - Reason: IV Fluid Infusing)2132 (Given - Provider: Batsheva Carias RN) 1006 (Not Given - Provider: Jenny Lentz RN - Reason: Loss of IV access)2100 (Due) tamsulosin (FLOMAX) capsule 0.4 mg 0.4 mg, Oral, DAILY, First dose on [place] 05/25/21 at 0900, Until Discontinued, Do not crush or break. 0920 (Given - Provider: Milagros Reich RN) 0900 (Due) Continuous Medication Order 05/24/2021 05/25/2021 05/26/2021 lactated ringers infusion 1,000 mL (CANCELED) 1,000 mL, IntraVENous, at 50 mL/hr, CONTINUOUS, Starting on Sat05/24/21 at 1015, Pre-op (day of surgery) 1042 (New Bag - Provider: Molly Williamson RN)1301 (NoRateChange - Provider: Yi Mena, BRETT)1427 (Paused - Provider: Yi Mena RN - Comment: Switch to gravity)1428 (New Bag - Provider: Yi Mena RN)1503 (Anesthesia Volume Adjustment - Provider: Yi Mena RN) 0730 (Stopped - Provider: Jenny Lentz RN) lactated ringers infusion (CANCELED) IntraVENous, at 125 mL/hr, CONTINUOUS, Starting on Sat05/24/21 at 1645, Post-op 1638 (New Bag - Provider: Milagros Reich RN)1933 (New Bag - Provider: Milagros Reich RN) 0315 (New Bag - Provider: Giselle Painting RN) 0730 (Stopped - Provider: Jenny Lentz RN) PRN Medication Order 05/24/2021 05/25/2021 05/26/2021 0.9 % sodium chloride infusion 25 mL, IntraVENous, at 100 mL/hr, PRN, If patient receiving piggyback infusions without ordered maintenance IV fluids or with frequent/long duration piggyback infusions, Starting on Sat05/24/21 at 1628, Administer at the same rate as the piggyback being infused., Post-op bupivacaine (MARCAINE) 0.5 % injection (CANCELED) PRN, Starting on Sat05/24/21 at 1351, Until Sat05/24/21 at 1616, Intra-op 1351 (Given - Provider: Octavio Mcclellan, - Comment: Given at incision sites.) cyclobenzaprine (FLEXERIL) tablet 10 mg 10 mg, Oral, 3 TIMES DAILY PRN, Starting on Sat05/24/21 at 1507, Until Discontinued, Muscle spasms 0845 (Given - Provider: Milagros Reich RN)1541 (Given - Provider: Milagros Reich RN) fentaNYL (SUBLIMAZE) injection 50 mcg (COMPLETED) 50 mcg, IntraVENous, ONCE PRN, 1 dose, Starting on Sat05/24/21 at 1024, Until Sat05/24/21 at 2359, Pain Severe (7-10), ., Pre-op (day of surgery) 1043 (Given - Provider: Molly Williamson RN) fentaNYL (SUBLIMAZE) injection 50 mcg (CANCELED) 50 mcg, IntraVENous, EVERY 5 MIN PRN, 4 doses, Starting on Sat05/24/21 at 1404, Until Sat05/24/21 at 1620, Pain Severe (7-10), Phase I - Initial therapy for severe pain., PACU only 1545 (Given - Provider: Pricilla Vivar, BRETT)1550 (Given - Provider: Pricilla Vivar, BRETT) HYDROmorphone (DILAUDID) injection 1 mg HYDROmorphone (DILAUDID) 1.5mg IV is equivalent to morphine 10mg IV, 1 mg, IntraVENous, EVERY 3 HOURS PRN, Starting on Sat05/24/21 at 1628, Until Discontinued, Pain Moderate (4-6), Pain Severe (7-10), If oral and IV narcotics ordered, use oral first and only use IV if oral is ineffective or cannot take oral. Do Not give oral and IV within 1 hour of each other unless specifically ordered., Post-op 1637 (Given - Provider: Milagros Reich RN)1933 (Given - Provider: Milagros Reich RN) 0015 (Given - Provider: Giselle Painting RN)0841 (Given - Provider: Milagros Reich RN)2137 (Given - Provider: Batsheva Carias RN) midazolam PF (VERSED) injection 1 mg (CANCELED) 1 mg, IntraVENous, EVERY 10 MIN PRN, 2 doses, Starting on Sat05/24/21 at 1024, Until Sat05/24/21 at 1620, Anxiety, Anxiety pre-op. Max dose 2 mg., Pre-op (day of surgery) 1043 (Given - Provider: Molly Williamson RN) ondansetron (ZOFRAN) injection 4 mg 4 mg, IntraVENous, EVERY 6 HOURS PRN, Starting on Sat05/24/21 at 1628, Until Discontinued, Nausea, Post-op 2126 (Given - Provider: Giselle Painting RN) 0409 (Given - Provider: Giselle Painting RN)1616 (Given - Provider: Milagros Reich RN) oxyCODONE-acetaminophen (PERCOCET) 5-325 MG per tablet 1 tablet(Linked Group 2) Mg/kg dosing is based on the oxycodone component., 1 tablet, Oral, EVERY 6 HOURS PRN, Starting on Sat05/24/21 at 1507, Until Discontinued, Pain Moderate (4-6), Maximum dose of acetaminophen is 4000 mg from all sources in 24 hours. 2125 (See Alternative - Provider: Giselle Painting RN) 042 (See Alternative - Provider: Giselle Painting RN)1148 (See Alternative - Provider: Milagros Reich RN)183 (See Alternative - Provider: Milagros Reich RN) 0051 (See Alternative - Provider: Alesha Shaikh, BRETT)0755 (See Alternative - Provider: Jenny Lentz, BRETT)1348 (See Alternative - Provider: Jenny Lentz RN) oxyCODONE-acetaminophen (PERCOCET) 5-325 MG per tablet 2 tablet(Linked Group 2) Mg/kg dosing is based on the oxycodone component., 2 tablet, Oral, EVERY 6 HOURS PRN, Starting on Sat05/24/21 at 1507, Until Discontinued, Pain Severe (7-10), Maximum dose of acetaminophen is 4000 mg from all sources in 24 hours. 2125 (Given - Provider: Giselle Painting RN) 421 (Given - Provider: Giselle Painting RN)114 (Given - Provider: Milagros Reich RN)183 (Given - Provider: Milagros Reich RN) 005 (Given - Provider: Alesha Shaikh, BRETT)0755 (Given - Provider: Jenny Lentz, BRETT)1348 (Given - Provider: Jenny Lentz, BRETT) promethazine (PHENERGAN) tablet 25 mg 25 mg, Oral, EVERY 6 HOURS PRN, Starting on Sat05/24/21 at 1507, Until Discontinued, Nausea 1652 (Given - Provider: Milagros Reich RN) 0257 (Given - Provider: Alesha Shaikh RN) sodium chloride 0.9 % irrigation (COMPLETED) CONTINUOUS PRN, Starting on Sat05/24/21 at 1351, Intra-op 1351 (New Bag - Provider: Octavio Mcclellan, DO - Comment: 1000 ml. poured to back table, 1000 ml. for suction executive personal assistant.) sodium chloride flush 0.9 % injection 5-40 mL 5-40 mL, IntraVENous, PRN, Starting on Sat05/24/21 at 1628, Until Discontinued, Line Care, After every IV line use, Post-op Linked Groups Order Group 1: famotidine (PEPCID) tablet 20 mgJump to med 20 mg, Oral, 2 TIMES DAILY, First dose on Sat05/24/21 at 2100, Until Discontinued, Post-op Or famotidine (PEPCID) 20 mg in sodium chloride (PF) 10 mL injectionJump to med 20 mg, IntraVENous, 2 TIMES DAILY, First dose on Sat05/24/21 at 2100, Until Discontinued
Administer if oral route cannot be used
Post-op Group 2: oxyCODONE-acetaminophen (PERCOCET) 5-325 MG per tablet 1 tabletJump to med Mg/kg dosing is based on the oxycodone component.
1 tablet, Oral, EVERY 6 HOURS PRN, Starting on Sat05/24/21 at 1507, Until Discontinued, Pain Moderate (4-6)
Maximum dose of acetaminophen is 4000 mg from all sources in 24 hours.
Or oxyCODONE-acetaminophen (PERCOCET) 5-325 MG per tablet 2 tabletJump to med Mg/kg dosing is based on the oxycodone component.
2 tablet, Oral, EVERY 6 HOURS PRN, Starting on Sat05/24/21 at 1507, Until Discontinued, Pain Severe (7-10)
Maximum dose of acetaminophen is 4000 mg from all sources in 24 hours.
Goals (unrecognized section and content) Goals may be documented in a n alternate section Source Comments (unrecognize d section and content) In the event this informatio n is protected by the Federal Confidentiality of Alcohol and Drug Abuse Patient Records regulations: The Federal rules restrict any use of the information to criminally investigate or prosecute any alcohol or drug abuse patient.[facility] HospitalIn the event this information is protected by the Federal Confidentiality of Alcohol and Drug Abuse Patient Records regulations: The Federal rules restrict any use of the information to criminally investigate or prosecute any alcohol or drug abuse patient.[facility] HospitalIn the event this information is protected by the Federal Confidentiality of Alcohol and Drug Abuse Patient Records regulations: The Federal rules restrict any use of the information to criminally investigate or prosecute any alcohol or drug abuse patient.[facility] HospitalIn the event this information is protected by the Federal Confidentiality of Alcohol and Drug Abuse Patient Records regulations: The Federal rules restrict any use of the information to criminally investigate or prosecute any alcohol or drug abuse patient.[facility] HospitalIn the event this information is protected by the Federal Confidentiality of Alcohol and Drug Abuse Patient Records regulations: The Federal rules restrict any use of the information to criminally investigate or prosecute any alcohol or drug abuse patient.[facility] HospitalIn the event this information is protected by the Federal Confidentiality of Alcohol and Drug Abuse Patient Records regulations: The Federal rules restrict any use of the information to criminally investigate or prosecute any alcohol or drug abuse patient.[facility] HospitalIn the event this information is protected by the Federal Confidentiality of Alcohol and Drug Abuse Patient Records regulations: The Federal rules restrict any use of the information to criminally investigate or prosecute any alcohol or drug abuse patient.[facility] HospitalIn the event this information is protected by the Federal Confidentiality of Alcohol and Drug Abuse Patient Records regulations: The Federal rules restrict any use of the information to criminally investigate or prosecute any alcohol or drug abuse patient.[facility] HospitalIn the event this information is protected by the Federal Confidentiality of Alcohol and Drug Abuse Patient Records regulations: The Federal rules restrict any use of the information to criminally investigate or prosecute any alcohol or drug abuse patient.[facility] HospitalIn the event this information is protected by the Federal Confidentiality of Alcohol and Drug Abuse Patient Records regulations: The Federal rules restrict any use of the information to criminally investigate or prosecute any alcohol or drug abuse patient.[facility] HospitalIn the event this information is protected by the Federal Confidentiality of Alcohol and Drug Abuse Patient Records regulations: The Federal rules restrict any use of the information to criminally investigate or prosecute any alcohol or drug abuse patient.[facility] HospitalIn the event this information is protected by the Federal Confidentiality of Alcohol and Drug Abuse Patient Records regulations: The Federal rules restrict any use of the information to criminally investigate or prosecute any alcohol or drug abuse patient.[facility] HospitalIn the event this information is protected by the Federal Confidentiality of Alcohol and Drug Abuse Patient Records regulations: The Federal rules restrict any use of the information to criminally investigate or prosecute any alcohol or drug abuse patient.[facility] HospitalIn the event this information is protected by the Federal Confidentiality of Alcohol and Drug Abuse Patient Records regulations: The Federal rules restrict any use of the information to criminally investigate or prosecute any alcohol or drug abuse patient.[facility] HospitalIn the event this information is protected by the Federal Confidentiality of Alcohol and Drug Abuse Patient Records regulations: The Federal rules restrict any use of the information to criminally investigate or prosecute any alcohol or drug abuse patient.[facility] HospitalIn the event this information is protected by the Federal Confidentiality of Alcohol and Drug Abuse Patient Records regulations: The Federal rules restrict any use of the information to criminally investigate or prosecute any alcohol or drug abuse patient.[facility] HospitalIn the event this information is protected by the Federal Confidentiality of Alcohol and Drug Abuse Patient Records regulations: The Federal rules restrict any use of the information to criminally investigate or prosecute any alcohol or drug abuse patient.[facility] HospitalIn the event this information is protected by the Federal Confidentiality of Alcohol and Drug Abuse Patient Records regulations: The Federal rules restrict any use of the information to criminally investigate or prosecute any alcohol or drug abuse patient.[facility] FOR RECORDS PERTAINING TO PATIENTS WHO ARE OR HAVE BEEN ENROLLED IN A CHEMICAL DEPENDENCY/SUBSTANCEABUSE PROGRAM, SOME INFORMATION MAY BE OMITTED. This clinical summary was aggregated from multiple sources. Caution should be exercised in using it in the provision of clinical care. This summary normalizes information from multiple sources, and as a consequence, information in this document may materially change the coding, format and clinical context of patient data. In addition, data may be omitted in some cases. CLINICAL DECISIONS SHOULD BE BASED ON THE PRIMARY CLINICAL RECORDS. [facility]. provides no warranty or guarantee of the accuracy or completeness of information in this document."
[2023-11-24 08:09] LABS: Testosterone 628 ng/dL (264-916)
== END 2023-11-22 15:55 | disposition home or self-care (01) ==
LOC: LAB 15:54
PROVIDERS: PCP Family Medicine; Visit Provider Family Medicine
DX: E29.1 Testicular hypofunction (principal)
CPT/HCPCS: 36415; 84403

== ENCOUNTER 2023-12-03 11:35 | Outpatient (OUT) | payer OTHER, SELFPAY ==
[2023-12-04 04:08] LABS: Testosterone 556 ng/dL (264-916)
== END 2023-12-03 11:36 | disposition home or self-care (01) ==
LOC: LAB 11:36
PROVIDERS: PCP Family Medicine; Visit Provider Family Medicine
DX: E29.1 Testicular hypofunction (principal)
CPT/HCPCS: 36415; 84403

== ENCOUNTER 2024-03-17 06:40 | Outpatient (OUT) | payer OTHER, SELFPAY ==
--- OUTSIDE RECORDS SUMMARY | 2024-03-17 06:46 | XMS_ITS | CCD ---
Author Organization [facility] CliniSymd Care Team Providers Care Winding Rack Operator Name Role Phone Derick Isabel Primary Care Provider SUZANNE ACEVEDO Attending Unavailable DERICK ISABEL Primary Care Unavailable ALINE BHATTI Referring Unavailable DERICK ISABEL Primary Care Unavailable ALINE BHATTI Referring Unavailable DERICK ISABEL Primary Care Unavailable ROSE HILTON Attending Unavailable DERICK ISABEL Primary Care Unavailable DERICK ISABEL Consulting Unavailable Derick Isabel Primary Care Provider Derick Isabel Primary Care Provider Octavio Becker Attending Provider Derick Isabel MD Primary Care Provider OCTAVIO MCCLELLAN Referring Unavailable DERICK ISABEL Primary Care Unavailable OCTAVIO MCCLELLAN Referring Unavailable CHALO DERICK M Primary Care Unavailable OCTAVIO MCCLELLAN Referring Unavailable DERICK ISABEL Primary Care Unavailable OCTAVIO MCCLELLAN Admitting Unavailable OCTAVIO MCCLELLAN Attending Unavailable DERICK ISABEL Primary Care Unavailable AGUSTIN FISCHER Consulting Unavailable LEISA PERRY Referring Unavailable CHALO DERICK M Primary Care Unavailable DORIE RUSH Consulting Unavailable SAI OWENS Attending Unavailable SAI OWENS Admitting Unavailable UNKNOWN, PHYSICIAN Referring Unavailable UNKNOWN, PHYSICIAN Primary Care Unavailable PAYTON HEML Attending Unavailable PAYTON HELM Admitting Unavailable Oumou Weinstein Unavailable STEPH Lowry Attending Provider [phone] Estephanie Lowry Unavailable STEPH Lowry Attending Provider NO FAMILY, PHYSICIAN Primary Care Provider Unava ilable DO Gianni Richter Attending Provider Estephanie Lowry Admitting Unavailable Estephanie Lowry Attending Unavailable NO FAMILY, PHYSICIAN Primary Care Unavailable NO FAMILY, PHYSICIAN Primary Care Unavailable Gianni Richter Admitting Unavailable Gianni Richter Attending Unavailable Derick Isabel Primary Care Physician LIDIA Gaspar, DR RAI Consulting Unavailable MURILLO ., DR [...] DR CISNEROS Admitting Unavailable WEST, DR OBIE wSartz Consulting Unavailable HOY ., DR CISNEROS Attending [...] CISNEROS Consulting Unavailable HOY ., DR CISNEROS Admcleopatra Unavailable HOY ., DR CISNEROS Attending Unavailable [...] Unavailable Derick Isabel MD Primary Care Provider [phone] ELGAFY, JASON Attending Unavailable SHENDGE, VITHAL Admitting [...] Unavailable HOY, DERICK M Primary Care Unavailable LULU OVIEDO Consulting UnavailDerick Poole MD Primary Care Provider [phone] Derick Isabel MD Primary Care Provider [phone] DERICK ISABEL M Primary Care Unavailable HABBOUB, EDD Referring Unavailable CJ GALLOWAY Referring Unavailable HOY, DERICK M Primary Care Unavailable HOY, DERICK M Primary Care Unavailable CJ GALLOWAY Referring Unavailable RIDDHI GOSS Attending Unavailable HOY, DERICK M Primary Care Unavailable MYRNA SCHRADER Attending Unavailable HOY, DERICK M Primary Care Unavailable HABBOUB, EDD Attending Unavailable ELGAFY, JASON KAMAL Referring Unavailabl e HOY, DERICK M Primary Care Unavailable HABBOUB, EDD Attending Unavailable SELF Referring Unavailable HOY, DERICK M Primary Care Unavailable HABBOUB, EDD Referring Unavailable HOY, DERICK M Primary Care Unavailable HABBOUB, EDD Attending Unavailable HOY, DERICK M Primary Care Unavailable HELEN MORGAN Referring Unavailable HOY, DERICK M Primary Care Unavailable Derick Isabel MD Primary Care Provider [phone] Cecelia MURILLO Attending Unavailable AHSAN FLYNN Attending Unavailable DERICK ISABEL Referring Unavailable DERICK ISABEL Primary Care Unavailable AHSAN FLYNN Attending Unavailable DERICK ISABEL Referring Unavailable DERICK ISABEL Primary Care Unavailable AHSAN FLYNN Attending Unavailable DERICK ISABEL Referring Unavailable DERICK ISABEL Primary Care Unavailable Unavailable Unavailable Unavailable Allergies Allergy Classification Reported Allergen(s) Allergy Type Date of Onset Reaction(s) Facility (12 sources) Povidone-Iodine; Translations: [povidone iodine topical] Drug Allergy 9 [facility] (11 sources) Povidone-Iodine; Translations: [povidone-iodine] Drug Allergy 9 [facility] (9 sources) soap; Translations: [soap] Allergy to substance 9 [facility] (12 sources) Chlorhexidine; Translations: [CHLORHEXIDINE] Drug Allergy 1 [facility] (12 sources) Iodine; Translations: [IODINE] Drug Allergy 9 [facility] Work Phone: (12 sources) Loratadine; Translations: [loratadine] Drug Allergy 2 [facility] (1 source) Chlorhexidine Drug Allergy [facility] (1 source) Povidone-Iodine; Translations: [Betadine] Drug Allergy [facility] Repository Medications Current Medications Medication Drug Class(es) Dates Sig (Normalized) Sig (Original) acetaminophen 500 mg oral tablet (11 sources) Start: 01-02-2022 End: 01-10-2023 take 2 tablets by mouth every eight hours acetaminophen (TYLENOL EXTRA STRENGTH) 500 mg tablet TAKE TWO TABLETS BY MOUTH EVERY 8 HOURS 01/02/2022 Active Comment on above: Take 2 tablets by mo ut every 8 hours. acetaminophen 325 mg / HYDROcodone bitartrate 5 mg oral tablet (20 sources) Opioid Agonist Start: 11-10-2021 take 1 tablet by mouth four times daily as needed HYDROcodone-acetami nophen (NORCO) 5-325 mg per tablet Take 1 tablet by mouth 4 (four) times a day as needed. 11/10/2021 Active Start: 05-05-2020 End: 05-08-2021 HYDROcodone-acetaminophen [...] / oxyCODONE hydrochloride 10 mg oral tablet (13 sources) Opioid Agonist Start: 10-10-2022 take 1 tablet by mouth every six hours as needed for pain oxyCODONE-acetaminophen (PERCOCET) 10-325 mg per tablet Take 1 tablet by mouth every 6 (six) hours as needed for pain. 08/07/2023 Active Start: 05-25-2021 End: 06-01-2021 oxyCODONE-acetaminophen (PER COCET) [...] Comment on above: Take 1 tablet by [facility] every 4 hours as needed. [id number] 200 actuat albuterol 0.09 mg/actuat metered dose inhaler (8 sources) beta2-Adrenergic Agonist Start: 01-07-2021 albuterol (PROVENTIL HFA;VENTOLIN HFA) 90 mcg/actuation inhaler INHALE 2 PUFFS BY MOUTH FOUR TIMES DAILY NEEDED (practice 2 (TWO) puffs 30 MINUTES prior) 01/07/2021 Active ALBUTEROL SULFAT E HFA IN Inhale into the lungs as needed 0 Active albuterol 0.833 mg/ml / ipratropium bromide 0.167 mg/ml inhalation solution (1 source) Anticholinergic, beta2-Adrenergic Agonist Start: 05-24-2021 ipratropium-albuterol (DUONEB) nebulizer solution 1 ampule amLODIPine 10 mg oral tablet (10 sources) Dihydropyridine Calcium Channel Merlyn Start: 12-12-2019 [...] once daily. apixaban 5 mg oral tablet (6 sources) Factor Xa Inhibitor take 2 tablets by mouth twice daily, then take 1 tablet by mouth twice daily apixaban (ELIQUIS) 5 mg tablet Eliquis 5 mg tablet TAKE 2 TABLETS BY MOUTH TWICE DAILY FOR 3 DAYS, then TAKE 1 TABLET BY MOUTH TWICE DAILY Active End: 05-08-2021 Apixaban (ELIQUIS PO) Take b y mouth 0 05/08/2021 Discontinued (LIST CLEANUP) aprepitant 40 mg oral capsule (1 source) Substance P/Neurokinin-1 Receptor Antagonist Start: 05-25-2021 aprepitant (EMEND) capsule 80 mg atropine sulfate 0.025 mg / diphenoxylate hydrochloride 2.5 mg oral tablet (5 sources) Anticholinergic, Cholinergic Muscarinic Antagonist, Antidiarrheal Start: 09-12-2018 take 1 tablet by mouth three times daily diphenoxylate-atrop ine (LOMOTIL) 2.5-0.025 mg per tablet Take 1 tablet by mouth 3 (three) times a day. 0 09/12/2018 Active 60 actuat budesonide 0.16 mg/actuat / formoterol fumarate 0.0045 mg/actuat metered dose inhaler (5 sources) Corticosteroid, beta2-Adrenergic Agonist Start: 01-01-2021 take 2 puff(s) by inhalation twice daily SYMBICORT 160-4.5 mcg/actuation inhaler Inhale 2 puffs 2 (two) times a day. 01/01/2021 Active bumetanide 1 mg oral tablet (20 sources) Loop Diuretic Start: 11-07-2021 take 1 tablet by mouth once daily bumetanide (BUMEX) 1 mg tablet Take 1 tablet (1 mg total) by mouth daily. 11/07/2021 Active Comment on above: Take 1 tablet by [facility] once daily. cholecalciferol 0.125 mg oral tablet (3 sources) Vitamin D take 1 tablet by mouth in the morning cholecalciferol, vitamin D3, 5,000 units tablet Take 1 tablet (5,000 Units total) by mouth in the morning. Active cyclobenzaprine hydrochloride 10 mg oral tablet (6 sources) Muscle Relaxant Start: 05-24-2021 cyclobenzaprine (FLEXERIL) tablet 10 mg Start: 09-29-2018 take 2 tablets by [facility] once daily cyclobenzaprine (FLEXERIL) 10 mg tablet Take 20 mg by mouth nightly. 11 09/29/2018 Active diclofenac sodium 75 mg delayed release oral tablet (5 sources) Nonsteroidal Anti-inflammatory Drug Start: 09-09-2018 take [...] on above: Take 1 capsule by mo [facility] two times a day. doxazosin 4 mg oral tablet (20 sources) alpha-Adrenergic Merlyn Start: 02-15-2021 take 1 tablet by mouth in the morning doxazosin (CARDURA) 4 mg tablet Take 1 tablet (4 mg total) by mouth in the morning. 02/15/2021 Active Start: 05-05-2020 End: 05-08-2021 take 4 mg by mouth twice daily Doxazosin Active 4 MG P O Twice daily May 05, 2020 1:00am Comment on above: Take 4 mg by mouth. doxepin hydrochloride 10 mg oral capsule (9 sources) Tricyclic Antidepressant Start: 11-30-19 take 1 capsule by mouth in the morning doxepin (SINEquan) 10 mg capsule Take 1 capsule (10 mg total) by mouth in the morning. 11/29/2022 Active doxycycline hyclate 100 mg oral capsule (7 sources) Tetracycline-class Drug take 1 capsule by mouth in the morning, then take 1 capsule by mouth at bedtime doxycycline (VIBRAMYCIN) 100 mg capsule Take 1 capsule (100 mg total) by mouth in the morning and 1 capsule (100 mg total) before bedtime. Active 1 ml enoxaparin sodium 100 mg/ml prefilled syringe (3 sources) Low Molecular Weight Heparin Start: 05-26-19 End: 06-06-19 enoxaparin (LOVENOX) 100 MG/ML injection Inject 1 mL into the skin 2 times daily for 10 days 20 mL 0 05/26/2021 06/05/2021 Active Start: 05-24-2021 enoxaparin (LO VENOX) injection 60 mg ergocalciferol 1.25 mg oral capsule (7 sources) Provitamin D2 Compound Start: 01-05-2021 ergocalciferol (DRISDOL) 1,250 mcg (50,000 unit) capsule Take 50,000 Units by mouth. 01/05/2021 Active Start: 01-05-2021 take 1 capsule by mo uth every week vitamin D (ERGOCALCIFEROL) 1.25 MG (40711 UT) CAPS capsule Indications: Vitamin D deficiency Take 1 capsule by mouth once a week for 8 doses 8 capsule 0 01/05/2021 Active famotidine 20 mg oral tablet (15 sources) Histamine-2 Receptor Antagonist Start: 11-07-2021 take 1 tablet by mouth once daily famotidine (PEPCID) 20 mg tablet Take 20 mg by mouth nightly. 11/07/2021 Active Start: 05-24-2021 famotidine (PE PCID) tablet 20 mg FeroSul 325 mg oral tablet (4 sources) Start: 03-19-2022 take 1 tablet by [...] 1 tablet (325 mg total) before bedtime. 11/07/2021 Active take 1 tablet by [facility] twice daily Ferrous Sulfate 325 (65 Fe) MG 1 tablet Orally twice a day Active Comment on above: Take 1 tablet by [facility] every 12 (twelve) hours. gabapentin 100 mg oral capsule (1 source) Anti-epileptic Agent Start: 2021 gabapentin (NEURONTIN) capsule 100 mg glimepiride 4 mg oral tablet (17 sources) Sulfonylurea Start: 2019 End: 2023 take 1 tablet by mouth once daily glimepiride (AMARYL) 4 mg tablet Take 4 mg by mouth daily. 02/15/2021 Active hydroCHLOROthiazide 25 mg oral tablet (3 sources) Thiazide Diuretic Start: 2019 take 1 tablet by mouth once daily [...] 30 DAYS indomethacin 50 mg oral capsule (10 sources) Nonsteroidal Anti-inflammatory Drug indomethacin (INDOCIN) 50 mg capsule Take 50 mg by mouth in the morning and 50 mg at noon and 50 mg in the evening. Take with meals. Active indomethacin 50 MG capsule Every 6 [...] levomilnacipran 40 mg extended release oral capsule (5 sources) Serotonin and Norepinephrine Reuptake Inhibitor take 1 capsule by mouth every twenty-four hours in the morning levomilnacipran (FETZIMA) 40 mg capsule,extended release 24 hr Take 40 mg by mouth in the morning. Active LORazepam 1 mg oral tablet (12 sources) Benzodiazepine Start: 023 take 1 tablet by mouth three times daily Ativan 1 mg Tab mg tab(s), Oral, TID, Refills(s) 0 Start Date: 03/19/22 Status: Ordered take 1 tablet by [facility] every six hours as needed LORazepam (ATIVAN) 1 mg tablet Take 1 tablet (1 mg total) by mouth every 6 (six) hours as needed. Active LORazepam (ATIVA N) 0.5 mg tab Take by mouth three times daily as needed. 0 Active take 1 tablet by [facility] every twenty-four hours Ativan 1 MG 1 tablet at bedtime as neede d Orally Once a day Not-Taking Comment on above: Take by mouth three times daily as needed. metFORMIN hydrochloride 500 mg oral tablet (5 sources) Biguanide take 1 tablet by mouth in the morning metFORMIN (GLUCOPHAGE) 500 mg tablet Take 1 tablet by mouth in the morning and 1 tablet before bedtime. Active metoclopramide 10 mg oral tablet (20 sources) Dopamine-2 Receptor Antagonist Start: 03-19-19 take 1 tablet by mouth twice daily at bedtime metoclopramide (REGLAN) 10 mg tablet TAKE 1 TABLET BY MOUTH TWICE DAILY (AT SUPPER & AT BEDTIME) 08/01/2022 Active Comment on above: Take 10 [...] daily 0 Active Multivitamin, Therapeutic w/ Minerals (4 sources) Start: 0 take 1 tablet by [...] capsule (20 sources) Proton Pump Inhibitor Start: 2 take 1 capsule by mouth in the morning, then take 1 capsule by mouth at bedtime omeprazole (PriLOSEC) 20 mg capsule Take 1 capsule (20 mg total) by mouth in the morning and 1 capsule (20 mg total) before bedtime. 01/16/2022 Active Comment on above: Take 1 capsule by [facility] twice daily. 2 ml ondansetron 2 mg/ml injection (7 sources) Serotonin-3 Receptor Antagonist Start: 2 ondansetron (ZOFRAN) injection 4 mg Start: 09-29-2018 ondansetron OD T (ZOFRAN-ODT) 4 mg disintegrating tablet Dissolve 1 tablet on tongue as needed. 0 09/29/2018 Active oxaprozin (5 sources) Nonsteroidal Anti-inflammatory Drug oxaprozin (DAYPRO ORAL) Active oxaprozin (DAYPR O ORAL) Daypro 0 Active oxyCODONE hydrochloride 15 mg oral tablet (7 sources) Opioid Agonist Start: 12-20-2022 End: 12-27-2022 take 1 tablet by mouth every six [...] pantoprazole 40 mg delayed release oral tablet (17 sources) Proton Pump Inhibitor take 1 tablet by mouth in the morning pantoprazole (PROTONIX) 40 mg EC tablet Take 1 tablet (40 mg total) by mouth in the morning. Active take 40 mg by mouth once daily P antoprazole Sodium (PROTONIX PO) Take 40 mg by mouth daily 0 Active Phenazopyridine (8 sources) Pyridium Active phentermine hydrochloride 37.5 mg oral tablet (9 sources) Sympathomimetic Amine Anorectic Start: 11-07-19 take 1 tablet by mouth once daily Phentermine (Adipex-P) 37.5 mg tablet Active 37.5 MG PO Daily November 07, 2023 12:00am take 1 capsule by mo uth once [...] 07, 2023 11:13am Start: 12-12-2019 End: 11-07-2023 take 1 tablet by mouth once daily pioglitazone 30 mg Tab 30 mg = 1 tab(s), Oral, Daily, Blood glucose Start Date: 02/23/20 Status: Ordered take 2 tablets by mo uth in the morning pioglitazone (ACTOS) 15 mg tablet Take 2 tablets (30 mg total) by mouth in the morning. Active predniSONE 20 mg oral tablet (2 sources) Start: 04-12-2019 End: 04-17-2019 take 2 tablets by mouth once daily predniSONE (DELTASONE) 20 MG tablet Take 2 tablets by mouth daily for 5 days 10 tablet 0 04/12/2019 04/17/2019 Active pregabalin 100 mg oral capsule (6 sources) Start: 12-07-2020 End: 05-08-2021 take 1 capsule by mouth in the morning, then take 1 capsule by mouth at bedtime pregabalin (LYRICA) 100 mg capsule Take 1 capsule (100 mg total) by mouth in the morning and 1 capsule (100 mg total) before bedtime. 12/07/2020 Active Probiotic Product (PROBIOTIC DAILY PO) [...] 05-24-2021 promethazine ( PHENERGAN) tablet 25 mg simvastatin 10 mg oral tablet (20 sources) HMG-CoA Reductase Inhibitor Start: 05-24-2016 End: 11-07-2023 take 10 mg by mouth once daily at bedtime simvastatin 10 mg, Oral, Once a day (at bedtime), Refills(s) 0 Start Date: 05/24/16 Status: Ordered Comment on above: Take 1 tablet by [facility] once daily. 5 ml sodium chloride 9 mg/ml injection (3 sources) Start: 05-24-2021 0.9 % sodium chloride infusion Start: 05-24-2021 sodium chlorid e flush 0.9 % injection 5-40 mL spironolactone 100 mg oral tablet (10 sources) Aldosterone Antagonist Start: 01-01-2021 take 1 tablet by mouth in the morning spironolactone (ALDACTONE) 100 mg tablet Take 1 tablet (100 mg total) by mouth in the morning. 01/01/2021 Active End: 05-25-2021 take 1 tablet by mouth every other day spironolactone (ALDACTONE) 100 MG tablet Take 100 mg by mouth every other day 0 05/25/2021 Discontinued (Stop Taking at Discharge) sucralfate 1000 mg oral tablet (20 sources) Aluminum Complex Start: 03-19-2022 take 1 [...] 1 tablet (1 g total) before bedtime. 10/08/2021 Active tamsulosin hydrochloride 0.4 mg oral capsule (20 sources) alpha-Adrenergic Merlyn Start: 03-03-2021 take 1 capsule by mouth in the morning tamsulosin (FLOMAX) 0.4 mg capsule Take 1 capsule (0.4 mg total) by mouth in the morning. 03/03/2021 Active Comment on above: Take 1 capsule by mo [facility] once daily. temazepam 15 mg oral capsule (6 sources) Benzodiazepine Start: 01-12-2021 take 1 capsule by mouth once daily as needed temazepam (RESTORIL) 15 mg capsule Take 15 mg by mouth nightly as needed. 01/12/2021 Active End: 05-08-2021 take 2 capsules [...] WEEKS November 07, 2023 12:00am Start: 05-05-2020 inject 1.5 mL by int ramuscular injection every other week testosterone cypionate (DEPOTESTOTERONE CYPIONATE) 100 mg/mL injection testosterone cypionate 100 mg/mL intramuscular oil INJECT 1.5 ML INTO THE MUSCLE EVERY 2 WEEKS DIRECTED 05/05/2020 Active Start: 05-05-2020 End: 05-08-2021 inject [...] Active Testosterone Cypionate 200 mg/mL intramuscular solution (4 sources) Start: 023 inject 200 mg by [...] Start: 08-21-2018 take 2 tablets by mo [facility] once daily tiZANidine (ZANAFLEX) 4 mg tablet Take 2 tablets (8 mg total) by mouth nightly. 0 08/21/2018 Active tizanidine HCl ( ZANAFLEX ORAL) daily at bedtime. 0 Active tizanidine HCl ( ZANAFLEX ORAL) tiZANidine (Omar flex) 4 MG tablet Every 8 hours. 0 Active Comment on above: daily at bedtime. traZODone hydrochloride 150 mg oral tablet (20 sources) Serotonin Reuptake Inhibitor Start: take 150 mg by mouth once daily at bedtime Trazodone Active 150 MG PO Daily at bedtime November 07, 2023 12:00am Start: 04-17-2021 take 3 tablets by mo uth once daily traZODone (DESYREL) 50 mg tablet Take 3 tablets (150 mg total) by mouth nightly. 04/17/2021 Active Start: 04-17-2021 take 1 tablet by [facility] once daily traZODone (DESYREL) 50 mg tablet Take 1 tablet (50 mg total) by mouth nightly. 0 04/17/2021 Active Zinc (3 sources) ZINC PO Take by mouth daily 0 Active Completed/Discontinued Medications Medication Drug Class(es) Dates Sig (Normalized) Sig (Original) amitriptyline hydrochloride 50 mg oral tablet (19 sources) Tricyclic Antidepressant Start: 05-05-2020 End: 11-07-2023 take 150 mg by mouth once daily at bedtime Amitriptyline Discontinued 150 MG PO Daily at bedtime May 05, 2020 1:00am November 07, 2023 11:12am take 1 tablet by mouth once tavo y amitriptyline (ELAVIL) 50 mg tablet Take 50 mg by mouth nightly. Active Comment on above: Take 50 mg by mouth daily at bedtime. baclofen 10 mg oral tablet (4 sources) gamma-Aminobutyric Acid-ergic Agonist Start: End: take 10 mg by mouth [...] ringers infusion carvedilol 25 mg oral tablet (15 sources) alpha-Adrenergic Merlyn, beta-Adrenergic Merlyn Start: End: [...] as directed. dapagliflozin 5 mg oral tablet (13 sources) Sodium-Glucose Cotransporter 2 Inhibitor Start: End: take 1 tablet by mouth once daily Dapagliflozin Propanediol (Farxiga) 5 mg tablet Discontinued 5 MG PO Daily May 05, 2020 1:00am November 07, 2023 11:12am 1 ml dexamethasone phosphate 10 mg/ml injection (1 source) Corticosteroid Start: End: dexamethasone (PF) (DECADRON) injection 10 mg 0.5 ml dulaglutide 1.5 mg/ml auto-injector (17 sources) GLP-1 Receptor Agonist Start: End: Dulaglutide (Trulicity) 0.75 mg/0.5 mL pen injector Discontinued 0.75 MG SUBCUT every week May 05, 2020 1:00am November 07, 2023 11:13am takes on Saturday dulaglutide 0.75 mg/0.5 mL pen injector Inject 0.75 mg under the skin every 7 days. On Mondays Active Dulaglutide (Vinicius licity) 0.75 MG/0.5ML Solution [...] Take 20 mg by mouth once daily. 1 ml ketorolac tromethamine 30 mg/ml cartridge [...] above: Use 1 Drop in the ri t eye once daily. 72 hr scopolamine 0.0139 mg/hr transdermal system (1 source) Anticholinergic Start: 2021 End: 2021 scopolamine (TRANSDERM-SCOP) transdermal patch 1 patch tetrahydrozoline (2 sources) TETRAHYDROZOLINE HCL (EYE DROPS [...] Problem Date Documented Date Episodic/Chronic Allergic reactions (4 sources) Environmental allergy 05-24-2016 Episodic Anxiety disorders (17 sources) Anxiety disorder, unspecified; Translations: [Anxiety] Onset: 2 12-07-2022 Chronic Blindness and vision defects (1 source) Unspecified visual loss; Translations: [UNSPECIFIED VISUAL LOSS] Onset: 2 Chronic Calculus of urinary tract (20 sources) History of calculus of kidney; Translations: [Personal history of urinary calculi] Onset: 2 12-28-2020 Episodic Complication of device; implant or graft (20 [...] 2 Episodic Genitourinary symptoms and ill-defined conditions (16 sources) Dysuria; Translations: [Dysuria] Onset: 2 Episodic [...] diseases of kidney and ureters (4 sources) Renal mass 03-19-2022 Chronic Other diseases of kidney and ureters (4 sources) Other specified disorders of kidney and ureter; Translations: [OTHER SPEC DISORDERS KIDNEY URETER] Onset: 3 Chronic Other endocrine disorders (3 sources) Male hypogonadism 10-10-2022 Chronic Other gastrointestinal disorders (2 sources) History of sleeve gastrectomy; Translations: [Bariatric surgery status] Onset: 2 Episodic Other gastrointestinal disorders (7 sources) Altered bowel function; Translations: [Change in bowel habit] Onset: 3 Episodic Other gastrointestinal disorders (3 sources) Acute diarrhea 10-10-2022 Episodic Other hereditary and degenerative nervous system conditions (19 sources) Essential tremor; Translations: [Essential tremor] Onset: 3 10-10-2022 Chronic Other injuries and conditions due to external causes (1 source) Traumatic AND/OR non-traumatic injury; Translations: [Injury] Episodic Other nervous system disorders (3 sources) Other chronic pain; Translations: [OTHER CHRONIC PAIN] Onset: 2 Chronic Other nervous system disorders (3 sources) Neurogenic claudication 10-10-2022 Episodic Other nervous system disorders (3 sources) Other acute postprocedural pain; Translations: [Other acute postprocedural pain] Onset: 3 Episodic Other non-traumatic joint disorders (5 sources) Chronic pain following right total knee arthroplasty; Translations: [Pain in right knee] 12-28-2020 Episodic Other nutritional; endocrine; and metabolic disorders (20 sources) Morbid obesity; Translations: [Morbid (severe) obesity [...] chemistry] Onset: 2 Episodic Pulmonary heart disease (3 sources) 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 Residual codes; unclassified (7 sources) Sleep apnea 05-25-2016 Chronic Comment on [...] Onset: 0 02-02-2020 Episodic Residual codes; unclassified (4 sources) Insomnia 05-24-2016 Episodic Spondylosis; intervertebral disc [...] [LOW BACK PAIN, UNSPECIFIED] Onset: 2 Unclassified (2 sources) Patient encounter status 02-04-2023 Unclassified (1 source) New Patient Onset: 3 Past or Other Problems Problem Classification Problem Date Documented Da te Episodic/Chronic Abdominal pain (4 sources) Unspecified abdominal pain; Translations: [UNSPECIFIED ABDOMINAL PAIN] Onset: 12-21-2021 Episodic Cardiac dysrhythmias (5 sources) Tachycardia; Translations: [Tachycardia, unspecified] Onset: 01-25-2021 01-25-2021 Episodic Chronic kidney disease (20 sources) Chronic kidney disease stage 4; Translations: [Chronic kidney disease, stage 4 (severe)] Onset: 08-22-2021 Resolved: 10-10-2022 Chronic Chronic kidney disease (12 sources) Chronic kidney [...] 12-07-2022 Episodic Other aftercare (1 source) Other detention (current) drug therapy; Translations: [OTH STRATEGIC PLANNER CURRENT DRUG THERAPY] Onset: 08-22-2021 Episodic Other connective tissue disease (1 source) [...] distribution width (RBC) [Ratio] 11.5 % 11.0-15.0 [place] Estimated glomerular filtrat ion rate (GFR) non- Americanon 10-29-2023 GFR/1.73 sq M.predicted among non-blacks MDRD (S/P/Bld) [Vol rate/Area] 51 mL/min/{1.73_m2} Low >=60 [place] Hematocrit Auto (Bld) [Volum e fraction]on 10-29-2023 Hematocrit (Bld) [Volume fraction] 47.7 % 42.0-54.0 [place] Hemoglobin [Mass/volume] in Bloodon 10-29-2023 Hemoglobin (Bld) [Mass/Vol] 16.8 g/dL 14.0-18.0 [place] [facility] - Chemistry and C hemistry - challengeon 10-29-2023 Albumin [Mass/Vol] 3.7 g/dL 3.4-5.0 [facility] Calcium [Mass/Vol] 9.0 mg/dL 8.5-10.1 [facility] Chloride [Moles/Vol] 103 mmol/L 98-107 [place] CO2 [Moles/Vol] 26.8 mmol/L 21.0-32.0 [facility] Creatinine [Mass/Vol] 1.41 mg/dL High 0.70-1.30 [place] GFR/1.73 sq M.predicted MDRD (S/P/Bld) [Vol rate/Area] mL/min/{1.73_m2} >=60 [place] Glucose [Mass/Vol] 167 mg/dL High 74-106 [facility] Magnesium [Mass/Vol] 1.9 mg/dL 1.8-2.4 [place] Potassium [Moles/Vol] 3.9 mmol/L 3.5-5.1 [place] Sodium [Moles/Vol] 141 mmol/L 136-145 [facility] Urate [Mass/Vol] 7.9 mg/dL High 3.5-7.2 [facility] Urea nitrogen [Mass/Vol] 26.0 mg/dL High 7.0-18.0 [place] Urea nitrogen/Creatinine [Mass ratio] 18.4 mg/mg [place] Bilirubin Ql (U) Negative NEGATIVE [facility] Glucose (U) [Mass/Vol] Negative NEGATIVE [place] Ketones Ql (U) Negative NEGATIVE [place] pH (U) 6.0 [pH] 5.0-9.0 [place] Specific gravity (U) [Rel density] 1.015 1.005-1.025 [place] Urobilinogen Qn (U) 0.2 {Dahiana'U}/dL 0.2-1.0 [place] [facility] - Specimen inform ationon 10-29-2023 Appearance (U) CLEAR CLEAR [place] Color (U) LT. YELLOW YELLOW [place] [facility] - Urinalysison Hyaline casts LM Ql (Urine sed) RARE [place] Leukocyte esterase Test strip Ql (U) Negative NEGATIVE [place] Mucus Ql (Urine sed) NONE SEEN NONE SEEN [place] Nitrite Ql (U) Negative NEGATIVE [place] Protein Ql (U) Negative NEG/TRACE [place] Leukocytes [#/volume] correc romaine for nucleated erythrocytes in Blood by Automated counon 10-29-2023 WBC corrected for nucl RBC Auto (Bld) [#/Vol] 6.9 10 3/uL 4.0-11.0 [place] MCH Auto (RBC) [Entitic mass ]on 10-29-2023 MCH (RBC) [Entitic mass] 32.2 pg 25.9-34.0 [place] MCHC Auto (RBC) [Mass/Vol]on 10-29-2023 MCHC (RBC) [Mass/Vol] 35.2 g/dL 29.9-35.2 [place] MCV Auto (RBC) [Entitic vol] on 10-29-2023 MCV (RBC) [Entitic vol] 91.6 fL 80.0-94.0 [place] No Panel Informationon 10-28 25-Hydroxy Vitamin D Total 40.8 ng/mL [place] Comment on above: <20 ng/mL Vit D defi cient20-<30 ng/mL Vit D [id number] ng/mL Vit D sufficient>100 ng/mL Potential Toxicity Parathyroid Hormone (Intact) 91 pg/mL Abnormal 15-65 [place] Comment on above: Performed at: - [facility] [id number] Director: Logan Martinez PhD, Phone: [phone] Phosphorus Level 2.3 mg/dL Low 2.6-4.7 [facility] Urine Bacteria NONE SEEN #/HPF NONE SEEN [facility] Urine Occult Blood Negative NEGATIVE [facility] Urine Other Casts SEEN #/LPF Abnormal NONE SEEN [facility] Urine Random Creatinine 15.18 mg/dL Low 20.00-300.00 [place] Urine Random Total Protein <6.0 mg/dL <=11.9 [place] Urine RBC NONE SEEN #/HPF 0-2 [place] Urine Squamous Epithelial Cells FEW #/LPF Abnormal NONE/RARE [place] Urine WBC NONE SEEN #/HPF NONE SEEN [place] Platelet mean volume Auto (B ld) [Entitic vol]on 10-29-2023 Platelet mean volume (Bld) [Entitic vol] 8.9 fL Low 9.5-13.5 [place] Platelets Auto (Bld) [#/Vol] on 10-29-2023 Platelets (Bld) [#/Vol] 236 10 3/uL 150-450 [place] RBC Auto (Bld) [#/Vol]on RBC (Bld) [#/Vol] 5.21 10 6/uL 4.70-6.10 [facility] Serum or plasma anion gap de terminationon 10-29-2023 Anion gap [Moles/Vol] 15.1 mmol/L [place] CNPNon 10-04-2023 CNPN Telephone (NEADFV) KAMALJITSUKHDEEP ([id number]) 1965 M Date Time Provider Department 10/04/23 EDD MATHEW During your visit today, we recorded the following information about you: Arianna Little 10/04/2023 10:42 AM Signed Laura report XR Lumbar Spine 2-3v scanned [...] Status:Closed by JUAN PABLO NOVA on 10/04/23 [facility] [place] 07-30-2023 [facility] Telephone (NEADFV) SUKHDEEP SIMENTAL ([id number]) 1965 M Date Time Provider Department 07/30/23 EDD MATHEW During your visit today, we recorded the following information about you: Arianna Little 07/30/2023 11:51 AM Signed Pt phoned regarding upcoming visit 10/06 workman's comp appt. Pt unable to manage virtual visit asking for telephone visit. Pt asking how far in advance to do X-Ray. Pt will have X-Ray done locally at [place]. Please call and advise Pt phone # [phone] Emily Rondon 07/30/2023 1:07 PM Signed Have sent XR Lumbar order to [facility] fax # [phone] as requested from patient. Riddhi Goss APRN.OLGA [...] Encounter Status:Closed by [facility]IDDHI GOSS [facility] Telephone (NIQ) SUKHDEEP SIMENTAL ([id number]) 1965 M Date Time Provider Department 07/23/23 EDD MATHEW During your visit today, we recorded the following information about you: Brenda Alex 07/23/2023 9:38 AM Signed Received request from [employer] needing more info, in epic for review. Juan Pablo Nvoa RN 07/23/2023 10:08 AM Signed Printed for [...] Status:Closed by JUAN PABLO NOVA on 07/26/23 [facility] [place] 04-16-2023 CNPN Telephone (NIQ) SUKHDEEP SIMENTAL ([id number]) 1965 M Date Time Provider Department 04/16/23 EDD MATHEW During your visit today, we recorded the following information about you: Moriah Ferguson 04/16/2023 1:27 PM Signed Received imaging disc by mail from [facility]. Disc contains CT Lumbar spine done on 04/03/23. Will place in nurse folder in [address]. Allergies As of Date: 04/16/2023 (No Known Allergies) Date Reviewed: 03/25/2023 Reviewed by: Colon, Mundo, PCNA - Fully Assessed Reason for Visit: [...] Encounter Status:Closed by MORIAH FERGUSON on 06/06/23 [facility] 04-10-2023 CNPN Telephone (NIQ) SUKHDEEP SIMENTAL ([id number]) 1965 M Date Time Provider Department 04/10/23 EDD MATHEW [facility] During your visit today, we recorded [...] Status:Closed by JUAN PABLO NOVA on 04/18/23 [facility]PAlejandra 04-09-2023 CNPN Telephone (NIQ) SUKHDEEP SIMENTAL ([id number]) 1965 M Date Time Provider Department 04/09/23 EDD MATHEW During your visit today, we recorded the following information about you: Brenda Alex 04/09/2023 10:[address] Lumbar Spine Report from [facility], in epic to review. Brittany Carr PA-C [...] Encounter Status:Closed by ROBSON LAZO on 04/09/23 [facility] CNPN Telephone (NEADFV) SUKHDEEP SIMENTAL ([id number]) 1965 M Date Time Provider Department 03/26/23 EDD MATHEW NEADFV During your visit today, [...] Reason for Visit: Orders [681] Patient Question [0067] Prescriptions as of 03/27/2023 - naloxone 4 [...] Status:Closed by JUAN PABLO NOVA on 03/27/23 [facility] ALLIED HEALTHon 03-25-2023 ALLIED HEALTH HNO ID: [id number] Author: YASH MRORISON RT(R) Service: ? Author Type: Technologist Type: [...] PATIENT PRESENTS WITH AN IMPLANTABLE OR ATTACHED SANITATION INSPECTOR: No RADIOLOGY DEPARTMENT: General X-ray: Exam(s) Completed: Spine X-Ray(s): Lumbar AP / LAT PERIPHERAL IV DATA: Not applicable SIGNED BY: RT Carlos(R) March 25, 2023 3:40 PM [facility] CNOVon 03-25-2023 CNOV Office Visit (NSFRVW ) SUKHDEEP SIMENTAL ([id number]) 1965 M Date Time Provider Department 03/25/23 [...] claudication [M48.062] Order(s):XR LUMBAR LIMITED 2V AP/LAT [[id number]] Order #: [id number] FUTURE CT LUMBAR SPINE WO IVCON [[id number]] Order #: [id number] FUTURE Prescriptions as of 03/26/2023 - naloxone [...] edema, unspecified [H18.20] (more content not included)... [facility] XR LUMBAR 2V AP/LATon 2023 XR LUMBAR [...] intact. IMPRESSION: 1. Degenerative and postsurgical changes. Nurse Executive: COURTNEY Transcribe Date/Time: Mar 27 2023 9:39A Dictated by : TYLER CASTILLO MD This examination was interpreted and the report reviewed and electronically signed by: TYLER CASTILLO MD on Mar 27 2023 9:41AM EST [id number] [facility] [place] 03-07-2023 CNPN Telephone (NEADFV) SUKHDEEP SIMENTAL ([id number]) 1965 M Date Time Provider Department 03/07/23 [...] Encounter Status:Closed by EMILY RONDON on 03[facility]14/23 [facility] Telephone (NSFRVW) SUKHDEEP SIMENTAL ([id number]) 1965 M Date Time Provider Department 03/06/23 [facility] During [...] Status:Closed by JUAN PABLO NOVA on 03/06/23 [facility] SU[facility]EP SIM[facility]AL ([id number]) 1965 M Date Time Provider Department 02/11/23 EDD MATHEW During your visit today, we recorded the following information about you: Moriah Ferguson 02/11/2023 1:36 PM Signed Received fax from [employer] requesting office notes, C-9, and [employer] 14. See fax scanned in patient's chart. Juan Pablo Nova RN 02/13/2023 3:14 PM Signed Information faxed to number requested. Faxed verification received. Robson De Jesus 03/06/2023 3:20 PM Signed Received updated notes from [employer] dated 03/05/23. Scanned into Brammo. Allergies As of Date: 02/11/2023 (No Known Allergies) Date Reviewed: 02/07/2023 Reviewed by: Brittany Ratliff - Fully Assessed Reason for Visit: [facility] (Worker's Comp) [4136] Prescriptions as of 03/07/2023 [...] Status:Closed by JUAN PABLO NOVA on 02/13/23 [facility] CNOVon 02-07-2023 CNOV Office Visit (NSFRVW ) SUKHDEEP SIMENTAL ([id number]) 1965 M Date Time Provider Department 02/07/23 3:00 PM RIDDHI GOSS NSFRVW During your visit today, we recorded the following information about you: Temperature Pulse Blood pressure Weight 98.6 degrees 79/minute 157/80 122.9 kg Riddhi Goss, PURCHASE ANALYST.ASSESSMENT MANAGER 02/08/2023 3:34 PM Signed SPINE SURGERY FOLLOW [...] which included preparing to see the patient, [id number] patient care, completing clinical documentation, obtaining and/or reviewing separately obtained history, performing a medically appropriate examination, counseling and educating the patient/family/caregiv er, and ordering medications, tests, or procedures. 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 [facility] SUKHDEEP SIMENTAL ([id number]) 1965 M Date Time Provider Department 02/07/23 EDD MATHEW NSFRVW During your visit today, [...] Status:Closed by JUAN PABLO NOVA on 02/07/23 [facility] XR LUMBAR 2V AP/LATon 2022 XR LUMBAR [...] L2/L3 and L3/L4. The hardware is intact. Nurse Executive: ISABELLEB Transcribe Date/Time: Feb 12 2023 8:31A Dictated by : DANIELA SAHNI MD This examination was interpreted and the report reviewed and electronically signed by: DANIELA SAHNI MD on Feb 12 2023 8:35AM EST [id number] [facility] 02-04-2023 CNPN Telephone (NEADFV) SUKHDEEP SIMENTAL ([id number]) 1965 M Date Time Provider Department 02/04/23 EDD MATHEW [facility] During your visit today, we recorded the following information about you: Robson De Jesus 02/04/2023 9:01 AM Signed Received a fax from [employer] requesting additional information for a disability claim with a questionnaire to be filled out. Scanned into Brammo. Juan Pablo Nova RN 02/13/2023 1:09 PM [...] Status:Closed by JUAN PABLO NOVA on 02/13/23 [facility] 01-23-2023 CNPN Telephone (NEADFV) SIMENTALSUKHDEEP ([id number]) 1965 M Date Time Provider Department 01/23/23 EDD MATHEW NEADFV During your visit today, we recorded the following information about you: Robson De Jesus 01/23/2023 10:26 AM Addendum Received fax from [employer]. Scanned into Brammo. Also received a RTW from [employer]. Scanned into Brammo as well. Allergies As of Date: 01/23/2023 (No Known Allergies) Date Reviewed: 12/20/2022 Reviewed by: Mundo Ness PCNA - Fully Assessed Reason for Visit: Received Outside Medical Records [6436] Cmt: [employer] Prescriptions as of 01/23/2023 - naloxone 4 [...] Status:Closed by JUAN PABLO NOVA on 01/23/23 [facility] 12-26-2022 [facility] Telephone (NEADFV) SUKHDEEP SIMENTAL ([id number]) 1965 M Date Time Provider Department 12/26/22 EDD MATHEW During your visit today, we recorded the following information about you: Emily Rondon 12/26/2022 1:57 PM Signed Received Prior Authorization from [employer] for medication Naloxone HC1 4 mg. Scan in patient chart for review. Juan Pablo Nova RN 12/27/2022 7:39 AM Signed PA completed. Awaiting response. Emily Rondon 12/27/2022 10:28 AM Signed Received prior authorization request form. Scan in patient chart for review. Emily Rondon 01/01/2023 10:39 AM Signed Received [employer] prior authorization. Scan in patient chart for review. Allergies As of Date: 12/26/2022 (No Known Allergies) Date Reviewed: 12/20/2022 Reviewed by: Mundo Ness PCNA - Fully Assessed Reason for Visit: Medication Authorization [1699] Prescriptions as of 01/01/2023 - naloxone 4 [...] Status:Closed by JUAN PABLO NOVA on 12/27/22 [facility] 12-21-2022 [facility] Telephone (NIQ) SUKHDEEP SIMENTAL ([id number]) 1965 M Date Time Provider Department 12/21/22 EDD MATHEW During your visit today, we recorded the following information about you: Moriah Ferguson 12/21/2022 9:29 AM Signed Patient called with complaints of [facility] not allowing him to order picker the pain medication that was sent [...] Encounter Status:Closed by MYRNA SCHRADER on 12/21/22 [facility] CNOVon 12-20-2022 CNOV Office Visit (NSFRVW ) SUKHDEEP SIMENTAL ([id number]) 1965 M Date Time Provider Department 12/20/22 [...] which included preparing to see the patient, egam-qs-mrse patient care, completing clinical documentation, obtaining and/or [...] [M51.36, M43.16] Order(s):XR LUMBAR LIMITED 2V AP/LAT [[id number]] Order #: [id number] FUTURE oxyCODONE (ROXICODONE) 15 mg immediate release [...] 1 capsule by (more content not included)... [facility] 12-18-2022 [facility] Telephone (PODCCP) SUKHDEEP SIMENTAL ([id number]) 1965 Date Time Provider Department 12/18/22 [facility] ISABEL [facility] During your visit today, we recorded the following information about you: Amaury Carreon 12/18/2022 1:52 PM Signed PATIENT INFORMATION Record ID: [id number] Patient Name: Sukhdeep Simental [facility]: [facility] [place]: [facility] [place] Attending: Edd Mathew Center: [facility] INSTRUCTIONS SN to remind patient of next upcoming appointment date, time, location SN TRANSFER TO [facility] SURVEY INFORMATION Medical/Nurse Convex Grinder: Amaury Calderón 1. Your discharge instructions are [...] Reason for Visit: Follow Up Phone Call [0827] Cmt: All Clear Prescriptions as of 12/18/2022 [...] Encounter Status:Closed by AMAURY CARREON on 12/18/22 [facility] [place] 12-14-2022 [facility] Telephone (NIAlan) SUKHDEEP SIMENTAL ([id number]) 1965 M Date Time Provider Department 12/14/22 [...] Fully Assessed Reason for Visit: FMLA Paperwork [4185] Prescriptions as of 12/17/2022 - docusate sodium [...] Encounter Status:Closed by ABBY HERNANDEZ on 12/17/22 [facility] [place] 12-13-2022 [facility] Telephone (NSFRVW) SUKHDEEP SIMENTAL ([id number]) 1965 M Date Time Provider Department 12/13/22 EDD MATHEW NSFRVW During your visit today, we recorded the following information about you: Eva Galdamez 12/13/2022 12:17 PM Signed Patient at [phone] is requesting a call back. He had [...] Encounter Status:Closed by MYRNA SCHRADER [facility] C[facility] Telephone (NEADFV) SIMENTALSUKHDEEP ([id number]) 1965 M Date Time Provider Department 12/12/22 BRITTANY CARR NEADFV During your visit today, we recorded the following information about you: Brenda Alex 12/12/2022 9:36 AM Signed [facility] [place] [address] - [address] - [phone] Pharmacist at [employer] wanted to inform the office that this [...] Status:Closed by JUAN PABLO NOVA on 12/12/22 [facility] Basic metabolic 2000 panelon 12-11-2022 Anion gap [Moles/Vol] 8 mmol/L Low 11-12 [facility] Comment on above: Order Comment: Speci men Type: BLOOD SPECIMEN Ordering Facility: [facility] Address: [address] [place] [address] Performed By: #### 2 4321-2 #### [facility] CLIA [id number] [address] [place] [address] [place] Calcium [Mass/Vol] 8.7 mg/dL Normal 8.5-10.2 [facility] Comment on above: Order Comment: Speci men Type: BLOOD SPECIMEN Ordering Facility: [facility] Address: [address] [place] [address] Performed By: #### 2 4321-2 #### [facility] CLIA [id number] [address] [place] [address] [place] Chloride [Moles/Vol] 106 mmol/L High 97-105 [facility] Comment on above: Order Comment: Speci men Type: BLOOD SPECIMEN Ordering Facility: [facility] Address: [address] [place] [address] Performed By: #### 2 4321-2 #### [facility] CLIA [id number] [address] [place] [address] [place] CO2 [Moles/Vol] 29 mmol/L Normal 22-30 [facility] Comment on above: Order Comment: Speci men Type: BLOOD SPECIMEN Ordering Facility: [facility] Address: [address] [place] [address] Performed By: #### 2 4321-2 #### [facility] CLIA [id number] [address] [place], [place] [address] [place] Creatinine [Mass/Vol] 1.17 mg/dL Normal 0.73-1.22 [facility] Comment on above: Order Comment: Shahrzad dumont Type: BLOOD SPECIMEN Ordering Facility: [facility] Address: [address] [place] [address] Performed By: #### 2 4321-2 #### [facility] [place] [id number] [address] [place] [address] [place] Creatinine and Glomerular filtration rate.predicted panel (S/P/Bld) 72 mL/min/1.73m??? Normal >=60 [facility] Comment on above: Order Comment: Shahrzad dumont Type: BLOOD SPECIMEN Ordering Facility: [facility] Address: [address] [place] [address] Result Comment: Leah mated Glomerular Filtration Rate [...] GFR. Performed By: #### 2 4321-2 #### [facility] CLIA [id number] [address] [place], [place] [address] [place] Glucose [Mass/Vol] 98 mg/dL Normal 74-99 [facility] Comment on above: Order Comment: Shahrzad dumont Type: BLOOD SPECIMEN Ordering Facility: [facility] Address: [address] [place] [address] Result Comment: The [place] [employer] (ADA) provides guidance for cutoff [...] Standards of Medical Care in Diabetes 2016, [place] [employer]. Diabetes Care. 2016.39(Suppl 1). Performed By: #### 2 4321-2 #### [facility] CLIA [id number] [address] [place] [address] [place] Potassium [Moles/Vol] 4.8 mmol/L Normal 3.7-5.1 [facility] Comment on above: Order Comment: Shahrzad dumont Type: BLOOD SPECIMEN Ordering Facility: [facility] Address: [address] [place] [address] Performed By: #### 2 4321-2 #### [facility] [place] [id number] [address] [place] [address] STATES [facility] Sodium [Moles/Vol] 143 mmol/L Normal 136-144 [facility] Comment on above: Order Comment: Shahrzad dumont Type: BLOOD SPECIMEN Ordering Facility: [facility] Address: [address] [place] [address] Performed By: #### 2 4321-2 #### [facility] [place] [id number] [address] [place] [address] [place] Urea nitrogen [Mass/Vol] 13 mg/dL Normal 9-24 [facility] Comment on above: Order Comment: Shahrzad dumont Type: BLOOD SPECIMEN Ordering Facility: [facility] Address: [address] [place] [address] Performed By: #### 2 4321-2 #### [facility] [place] [id number] [address] [place] [address] OF ARE[place] CASE MANAGEMon 12-11-2022 CASE MANAGEM HNO ID: [id number] Author: Gloria Toro RN Service: ? Author Type: Registered Nurse Type: Care Mgt Progress Note Filed: 12/11/2022 3:26 PM Note Text: CARE MANAGEMENT PROGRESS NOTE SERVICE DATE: 12/11/2022 SERVICE TIME: 3:26 pm LOS: 4 days No further skilled PT / OT needed at [place]. SIGNATURE: Gloria Toro RN PATIENT NAME: Sukhdeep Simental DATE: December 11, 2022 TIME: 3:25 PM PAGER/CONTACT #: [phone] Normal [facility] CBC panel Auto (Bld)on 12-11 Erythrocyte distribution width (RBC) [Ratio] 12.5 % Normal 11.5-15.0 [facility] Comment on above: Order Comment: Speci men Type: BLOOD SPECIMEN Ordering Facility: [facility] Address: [address] [place] [address] Performed By: #### 5 8410-2 #### [facility] CLIA [id number] [address] [place] [address] OF [place] Hematocrit (Bld) [Volume fraction] 34.6 % Low 39.0-51.0 [facility] Comment on above: Order Comment: Speci men Type: BLOOD SPECIMEN Ordering Facility: [facility] Address: [address] [place] [address] Performed By: #### 5 8410-2 #### [facility] CLIA [id number] [address] [place] [address] [place] Hemoglobin (Bld) [Mass/Vol] 11.7 g/dL Low 13.0-17.0 [facility] Comment on above: Order Comment: Speci men Type: BLOOD SPECIMEN Ordering Facility: [facility] Address: [address] [place] [address] Performed By: #### 5 8410-2 #### [facility] CLIA [id number] [address] [place] [address] [place] MCH (RBC) [Entitic mass] 32.0 pg Normal 26.0-34.0 [facility] Comment on above: Order Comment: Speci men Type: BLOOD SPECIMEN Ordering Facility: [facility] Address: [address] [place] [address] Performed By: #### 5 8410-2 #### [facility] CLIA [id number] [address] [place] [address] [place] MCHC (RBC) [Mass/Vol] 33.8 g/dL Normal 30.5-36.0 [facility] Comment on above: Order Comment: Speci men Type: BLOOD SPECIMEN Ordering Facility: [facility] Address: [address] [place] [address] Performed By: #### 5 8410-2 #### [facility] CLIA [id number] [address] [place] [address] [place] MCV (RBC) [Entitic vol] 94.5 fL Normal 80.0-100.0 [facility] Comment on above: Order Comment: Speci men Type: BLOOD SPECIMEN Ordering Facility: [facility] [facility] Address: [address] [place] [address] Performed By: #### 5 8410-2 #### [facility] IA [id number] [address] [place] [address] [place] Nucleated RBC (Bld) [#/Vol] 10*3/uL Normal <0.01 [facility] Comment on above: Order Comment: Speci men Type: BLOOD SPECIMEN Ordering Facility: [facility] Address: [address] [place] [address] Performed By: #### 5 8410-2 #### [facility] IA [id number] [address] [place] [address] [place] Platelet mean volume (Bld) [Entitic vol] 9.4 fL Normal 9.0-12.7 [facility] Comment on above: Order Comment: Speci men Type: BLOOD SPECIMEN Ordering Facility: [facility] Address: [address] [place] [address] Performed By: #### 5 8410-2 #### [facility] CLIA [id number] [address] [place] [address] [place] Platelets (Bld) [#/Vol] 196 10*3/uL Normal 150-400 [facility] Comment on above: Order Comment: Speci men Type: BLOOD SPECIMEN Ordering Facility: [facility] Address: [address] [place] [address] Performed By: #### 5 8410-2 #### [facility] CLIA [id number] [address] [place] [address] [place] RBC (Bld) [#/Vol] 3.66 10*6/uL Low 4.20-6.00 [facility] Comment on above: Order Comment: Shahrzad dumont Type: BLOOD SPECIMEN Ordering Facility: [facility] Address: [place] [address] Performed By: #### 5 8410-2 #### [facility] CLIA [id number] [address] [place], [place] [address] [place] WBC (Bld) [#/Vol] 9.04 10*3/uL Normal 3.70-11.00 [facility] Comment on above: Order Comment: Shahrzad dumont Type: BLOOD SPECIMEN Ordering Facility: [facility] Address: [address] [place] [address] Performed By: #### 5 8410-2 #### [facility] CLIA [id number] [address] [place] [id number] [facility] CNDSon 12-11-2022 CNDS HNO ID: [id number] Author: Brittany Carr PA-C Service: Neurosurgery Author Type: Physician Convex Grinder Type: Discharge Summary Filed: 12/11/2022 10:38 AM [...] Doctor: Edd Mathew MD Primary Care Provider: Dreick Isabel MD My Medical Team Members: Treatment [...] you become constipated, you may use any dhrt-lsk-cijixmb treatment such as Milk of Magnesia, Sennakot, Prune Juice, Suppositories, etc. in addition to the stool softener/fiber supplement No alcohol or driving while on pain medication Use the dispensed medication (see prescription) You should use an juio-bew-fxgrohu stool softener (Docusate sodium) and/or a fiber [...] call for appointment?: (more content not included)... [facility] CONSULTon 12-11-2022 CONSULT HNO ID: [id number] Author: Jaiden Rucker PA-C Service: Pain Management Author Type: Physician Convex Grinder Type: Consults Filed: 12/11/2022 8:09 AM Note Text: Attestation signed by Nila Cramer MD at 12/11/2022 3:42 PM I saw and evaluated the patient. Discussed with the pa and agree with pa's findings and plan as documented in the [...] 8/10 Lack of pain control with iv sausage meat trimmer fentanyl and dilaudid PERTINENT ROS: denies fever, [...] (fL) Date Saniya (more content not included)... [facility] NURSING PROGon 12-11-2022 NURSING PROG HNO ID: [id number] Author: Erlinda Bui, RN Service: Nursing Author [...] above information. Patient verbalizing understanding of instructions. Normal [facility] Basic metabolic 2000 panelon 12-10-2022 Anion gap [Moles/Vol] 7 mmol/L Low 9-18 [facility] Comment on above: Order Comment: Speci men Type: BLOOD SPECIMEN Ordering Facility: [facility] Address: [address] [place] [address] Performed By: #### 2 4321-2 #### [facility] CLIA [id number] [address] [place] [address] [place] Calcium [Mass/Vol] 8.3 mg/dL Low 8.5-10.2 [facility] Comment on above: Order Comment: Speci men Type: BLOOD SPECIMEN Ordering Facility: [facility] Address: [address] [place] [address] Performed By: #### 2 4321-2 #### [facility] CLIA [id number] [address] [place] [address] [place] Chloride [Moles/Vol] 107 mmol/L High 97-105 [facility] Comment on above: Order Comment: Speci men Type: BLOOD SPECIMEN Ordering Facility: [facility] Address: [address] [place] [address] Performed By: #### 2 4321-2 #### [facility] CLIA [id number] [address] [place] [address] [place] CO2 [Moles/Vol] 26 mmol/L Normal 22-30 [facility] Comment on above: Order Comment: Shahrzad dumont Type: BLOOD SPECIMEN Ordering Facility: [facility] Address: [address] [place] [address] Performed By: #### 2 4321-2 #### [facility] CLIA [id number] [address] [place], [place] [address] [place] Creatinine [Mass/Vol] 1.16 mg/dL Normal 0.73-1.22 [facility] Comment on above: Order Comment: Shahrzad men Type: BLOOD SPECIMEN Ordering Facility: [facility] Address: [address] [place] [address] Performed By: #### 2 4321-2 #### [facility] CLIA [id number] [address] [place] [address] [place] Creatinine and Glomerular filtration rate.predicted panel (S/P/Bld) 73 mL/min/1.73m??? Normal >=60 [facility] Comment on above: Order Comment: Shahrzad dumont Type: BLOOD SPECIMEN Ordering Facility: [facility] Address: [address] [place] [address] Result Comment: Leah mated Glomerular Filtration Rate [...] GFR. Performed By: #### 2 4321-2 #### [facility] CLIA [id number] [address] [place], [place] [address] [place] Glucose [Mass/Vol] 129 mg/dL High 74-99 [facility] Comment on above: Order Comment: Shahrzad tim Type: BLOOD SPECIMEN Ordering Facility: [facility] Address: [address] [place] [address] Result Comment: The [place] [employer] (ADA) provides guidance for cutoff [...] Standards of Medical Care in Diabetes 2016, [place] [employer]. Diabetes Care. 2016.39(Suppl 1). Performed By: #### 2 4321-2 #### [facility] CLIA [id number] [address] [place] [address] [place] Potassium [Moles/Vol] 4.3 mmol/L Normal 3.7-5.1 [facility] Comment on above: Order Comment: Shahrzad dumont Type: BLOOD SPECIMEN Ordering Facility: [facility] Address: [address] [place] [address] Performed By: #### 2 4321-2 #### [facility] CLIA [id number] [address] [place] [address] [place] Sodium [Moles/Vol] 140 mmol/L Normal 136-144 [facility] Comment on above: Order Comment: Shahrzad dumont Type: BLOOD SPECIMEN Ordering Facility: [facility] Address: [address] [place] [address] Performed By: #### 2 4321-2 #### [facility] CLIA [id number] [address] [place] [address] [place] Urea nitrogen [Mass/Vol] 16 mg/dL Normal 9-24 [facility] Comment on above: Order Comment: Shahrzad dumont Type: BLOOD SPECIMEN Ordering Facility: [facility] Address: [address] [place] [address] Performed By: #### 2 4321-2 #### [facility] CLIA [id number] [address] [place] [address] [place] CBC panel Auto (Bld)on 12-10 Erythrocyte distribution width (RBC) [Ratio] 12.6 % Normal 11.5-15.0 [facility] Comment on above: Order Comment: Speci men Type: BLOOD SPECIMEN Ordering Facility: [facility] Address: [address] [place] [address] Performed By: #### 5 8410-2 #### [facility] CLIA [id number] [address] [place] [address] [place] Hematocrit (Bld) [Volume fraction] 32.7 % Low 39.0-51.0 [facility] Comment on above: Order Comment: Speci men Type: BLOOD SPECIMEN Ordering Facility: [facility] Address: [address] [place] [address] Performed By: #### 5 8410-2 #### [facility] CLIA [id number] [address] [place] [address] [place] [facility] Hemoglobin (Bld) [Mass/Vol] 10.9 g/dL Low 13.0-17.0 [facility] Comment on above: Order Comment: Speci men Type: BLOOD SPECIMEN Ordering Facility: [facility] Address: [address] [place] [address] Performed By: #### 5 8410-2 #### [facility] CLIA [id number] [address] [place] [address] [place] [facility] MCH (RBC) [Entitic mass] 31.5 pg Normal 26.0-34.0 [facility] Comment on above: Order Comment: Speci men Type: BLOOD SPECIMEN Ordering Facility: [facility] Address: [address] [place] [address] Performed By: #### 5 8410-2 #### [facility] CLIA [id number] [address] [place] [address] [place] MCHC (RBC) [Mass/Vol] 33.3 g/dL Normal 30.5-36.0 [facility] Comment on above: Order Comment: Speci men Type: BLOOD SPECIMEN Ordering Facility: [facility] Address: [address] [place] [address] Performed By: #### 5 8410-2 #### [facility] CLIA [id number] [address] [place] [address] [place] MCV (RBC) [Entitic vol] 94.5 fL Normal 80.0-100.0 [facility] Comment on above: Order Comment: Speci men Type: BLOOD SPECIMEN Ordering Facility: [facility] Address: [address] [place] [address] Performed By: #### 5 8410-2 #### [facility] CLIA [id number] [address] [place] [address] [place] Nucleated RBC (Bld) [#/Vol] 10*3/uL Normal <0.01 [facility] Comment on above: Order Comment: Speci men Type: BLOOD SPECIMEN Ordering Facility: [facility] Address: [address] [place] [address] Performed By: #### 5 8410-2 #### [facility] CLIA [id number] [address] [place] [address] [place] Platelet mean volume (Bld) [Entitic vol] 9.6 fL Normal 9.0-12.7 [facility] Comment on above: Order Comment: Speci men Type: BLOOD SPECIMEN Ordering Facility: [facility] Address: [address] [place] [address] Performed By: #### 5 8410-2 #### [facility] CLIA [id number] [address] [place] [address] [place] Platelets (Bld) [#/Vol] 157 10*3/uL Normal 150-400 [facility] Comment on above: Order Comment: Speci men Type: BLOOD SPECIMEN Ordering Facility: [facility] Address: [address] [place] [address] Performed By: #### 5 8410-2 #### [facility] CLIA [id number] [address] [place] [address] [place] RBC (Bld) [#/Vol] 3.46 10*6/uL Low 4.20-6.00 [facility] Comment on above: Order Comment: Speci men Type: BLOOD SPECIMEN Ordering Facility: [facility] Address: [address] [place] [address] Performed By: #### 5 8410-2 #### [facility] CLIA [id number] [address] [place], [place] [address] [place] WBC (Bld) [#/Vol] 8.16 10*3/uL Normal 3.70-11.00 [facility] Comment on above: Order Comment: Speci men Type: BLOOD SPECIMEN Ordering Facility: [facility] Address: [address] [place] [address] Performed By: #### 5 8410-2 #### [facility] CLIA [id number] [address] [place], [place] [address] [place] THERAPY NTon 12-10-2022 THERAPY NT HNO ID: [id number] Author: Odilon Madrid PT Service: Physical Therapy Author Type: Physical Therapist Type: Therapy (PT/OT/Speech/Resp) Filed: 12/10/2022 11:20 AM Note Text: PHYSICAL THERAPY MISSED VISIT SERVICE DATE: 12/10/2022 SERVICE TIME: 1109 to 1111 ROOM: [place] [address] Patient not seen due to Refused Treatment. Pt reported pain levels are too high to attempt therapy. Will f/u as schedule allows and pain improves. SIGNATURE: Odilon Madrid PT PATIENT NAME: Sukhdeep Simental DATE: December 10, 2022 TIME: 11:20 AM [facility] ALLIED HEALTHon 12-09-2022 ALLIED HEALTH HNO ID: [id number] Author: Akila Huitron RT(R) Service: Radiology Author [...] RT Jose(R) December 09, 2022 2:01 PM Normal [facility] Basic metabolic 2000 panelon 12-09-2022 Anion gap [Moles/Vol] 6 mmol/L Low 9-18 [facility] Comment on above: Order Comment: Speci men Type: BLOOD SPECIMEN Ordering Facility: [facility] Address: [address] [place] [address] Performed By: #### 2 4321-2 #### [facility] CLIA [id number] [address] [place] [address] [place] Calcium [Mass/Vol] 8.5 mg/dL Normal 8.5-10.2 [facility] Comment on above: Order Comment: Speci men Type: BLOOD SPECIMEN Ordering Facility: [facility] Address: [address] [place] [address] Performed By: #### 2 4321-2 #### [facility] CLIA [id number] [address] [place] [address] [place] Chloride [Moles/Vol] 106 mmol/L High 97-105 [facility] Comment on above: Order Comment: Speci men Type: BLOOD SPECIMEN Ordering Facility: [facility] Address: [address] [place] [address] Performed By: #### 2 4321-2 #### [facility] CLIA [id number] [address] [place], [place] [address] [place] CO2 [Moles/Vol] 30 mmol/L Normal 22-30 [facility] Comment on above: Order Comment: Speci men Type: BLOOD SPECIMEN Ordering Facility: [facility] Address: [address] [place] [address] Performed By: #### 2 4321-2 #### [facility] CLIA [id number] [address] [place], [place] [address] [place] Creatinine [Mass/Vol] 1.34 mg/dL High 0.73-1.22 [facility] Comment on above: Order Comment: Speci men Type: BLOOD SPECIMEN Ordering Facility: [facility] Address: [address] [place] [address] Performed By: #### 2 4321-2 #### [id number] [address] [place], [place] [address] [place] Creatinine and Glomerular filtration rate.predicted panel (S/P/Bld) 61 mL/min/1.73m??? Normal >=60 [facility] Comment on above: Order Comment: Shahrzad dumont Type: BLOOD SPECIMEN Ordering Facility: [facility] Address: [address] [place] [address] Result Comment: Leah mated Glomerular Filtration Rate [...] GFR. Performed By: #### 2 4321-2 #### [facility] [id number] [address] [place] [address] [place] Glucose [Mass/Vol] 105 mg/dL High 74-99 [facility] Comment on above: Order Comment: Shahrzad dumont Type: BLOOD SPECIMEN Ordering Facility: [facility] Address: [address] [place] [address] Result Comment: The [place] [employer] (ADA) provides guidance for cutoff [...] Standards of Medical Care in Diabetes 2016, [place] [employer]. Diabetes Care. 2016.39(Suppl 1). Performed By: #### 2 4321-2 #### [facility] IA [id number] [address] [place] [address] [place] Potassium [Moles/Vol] 3.9 mmol/L Normal 3.7-5.1 [facility] Comment on above: Order Comment: Speci men Type: BLOOD SPECIMEN Ordering Facility: [facility] Address: [address] [place] [address] Performed By: #### 2 4321-2 #### [facility] CLIA [id number] [address] [place] [address] [place] Sodium [Moles/Vol] 142 mmol/L Normal 136-144 [facility] Comment on above: Order Comment: Speci men Type: BLOOD SPECIMEN Ordering Facility: [facility] Address: [address] [place] [address] Performed By: #### 2 4321-2 #### [facility] CLIA [id number] [address] [place] [address] [place] Urea nitrogen [Mass/Vol] 18 mg/dL Normal 9-24 [facility] Comment on above: Order Comment: Speci men Type: BLOOD SPECIMEN Ordering Facility: [facility] Address: [address] [place] [address] Performed By: #### 2 4321-2 #### [facility] CLIA [id number] [address] [place] [address] [place] CBC panel Auto (Bld)on 12-09 Erythrocyte distribution width (RBC) [Ratio] 12.7 % Normal 11.5-15.0 [facility] Comment on above: Order Comment: Speci men Type: BLOOD SPECIMEN Ordering Facility: [facility] Address: [address] [place] [address] Performed By: #### 5 8410-2 #### [facility] CLIA [id number] [address] [place] [address] [place] Hematocrit (Bld) [Volume fraction] 34.1 % Low 39.0-51.0 [facility] Comment on above: Order Comment: Speci men Type: BLOOD SPECIMEN Ordering Facility: [facility] Address: [address] [place] [address] Performed By: #### 5 8410-2 #### [facility] IA [id number] [address] [place] [address] [place] Hemoglobin (Bld) [Mass/Vol] 11.6 g/dL Low 13.0-17.0 [facility] Comment on above: Order Comment: Speci men Type: BLOOD SPECIMEN Ordering Facility: [facility] Address: [address] [place] [address] Performed By: #### 5 8410-2 #### [facility] IA [id number] [address] [place] [address] [place] MCH (RBC) [Entitic mass] 32.3 pg Normal 26.0-34.0 [facility] Comment on above: Order Comment: Speci men Type: BLOOD SPECIMEN Ordering Facility: [facility] Address: [address] [place] [address] Performed By: #### 5 8410-2 #### [facility] IA [id number] [address] [place] [address] [place] MCHC (RBC) [Mass/Vol] 34.0 g/dL Normal 30.5-36.0 [facility] Comment on above: Order Comment: Speci men Type: BLOOD SPECIMEN Ordering Facility: [facility] Address: [address] [place] [address] Performed By: #### 5 8410-2 #### [facility] IA [id number] [address] [place] [address] [place] MCV (RBC) [Entitic vol] 95.0 fL Normal 80.0-100.0 [facility] Comment on above: Order Comment: Speci men Type: BLOOD SPECIMEN Ordering Facility: [facility] Address: [address] [place] [address] Performed By: #### 5 8410-2 #### [facility] IA [id number] [address] [place] [address] [place] Nucleated RBC (Bld) [#/Vol] 10*3/uL Normal <0.01 [facility] Comment on above: Order Comment: Speci men Type: BLOOD SPECIMEN Ordering Facility: [facility] Address: [address] [place] [address] Performed By: #### 5 8410-2 #### [facility] CLIA [id number] [address] [place], [place] [address] [place] Platelet mean volume (Bld) [Entitic vol] 9.6 fL Normal 9.0-12.7 [facility] Comment on above: Order Comment: Speci men Type: BLOOD SPECIMEN Ordering Facility: [facility] Address: [address] [place] [address] Performed By: #### 5 8410-2 #### [facility] CLIA [id number] [address] [place], [place] [address] [place] Platelets (Bld) [#/Vol] 159 10*3/uL Normal 150-400 [facility] Comment on above: Order Comment: Speci men Type: BLOOD SPECIMEN Ordering Facility: [facility] Address: [address] [place] [address] Performed By: #### 5 8410-2 #### [facility] IA [id number] [address] [place] [address] [place] RBC (Bld) [#/Vol] 3.59 10*6/uL Low 4.20-6.00 [facility] Comment on above: Order Comment: Speci men Type: BLOOD SPECIMEN Ordering Facility: [facility] Address: [address] [place] [address] Performed By: #### 5 8410-2 #### [facility] CLIA [id number] [address] [place], [place] [address] [place] WBC (Bld) [#/Vol] 8.72 10*3/uL Normal 3.70-11.00 [facility] Comment on above: Order Comment: Speci men Type: BLOOD SPECIMEN Ordering Facility: [facility] Address: [address] [place] [address] Performed By: #### 5 8410-2 #### [facility] CLIA [id number] [address] [place], [place] [address] [place] NURSING PROGon 12-09-2022 NURSING PROG HNO ID: [id number] Author: Abdias Pemberton, RN Service: Nursing Author Type: Registered Nurse Type: Nursing Progress Note Filed: 12/09/2022 7:21 PM Note Text: 12/09/2022 0826: hydromorphone TESTER REGULATOR rate varied. Patient rating pain 8/10 at this time stating oh, its much better than yesterday . 0931: Patient working with PT at this time 1035: Patient resting/sleeping comfortably in bed at this time. 1200: fentaNYL TESTER REGULATOR ordered. 1345: Patient ambulating in the hallway with nursing staff and . 1402: Patient at radiology for post-op XR 1406: Hydromorphone TESTER REGULATOR discontinued. While discontinuing the hydromorphone TESTER REGULATOR, patient made several comments about unused hydromorphone, I can take that medication off your hands. Patient educated that the medication will be properly wasted per protocol. 1407: fentaNYL TESTER REGULATOR started and Hydromorphone properly wasted per protocol. [...] Can't you increase my setting on the TESTER REGULATOR because I had better pain relief with the Dilaudid pump because I could press the button more frequent? Can you increase the pump settings? [facility] THERAPY NTon 12-09-2022 THERAPY NT HNO ID: [id number] Author: Abdias Crooks, OT/L Service: Occupational Therapy Author Type: Occupational Therapist Type: Therapy (PT/OT/Speech/Resp) Filed: 12/09/2022 3:30 PM Note Text: Occupational Therapy Evaluation SERVICE DATE: 12/09/2022 SERVICE TIME: 1438 to 1502 ROOM: [place] [address] Total Joint Replacement Discharge Readiness: Cleared from [...] slower than expec (more content not included)... [facility] THERAPY NT HNO ID: [id number] Author: Hannah Mota PT, DPT Service: Physical Therapy Author Type: Physical Therapist Type: Therapy (PT/OT/Speech/Resp) Filed: 12/09/2022 10:06 AM Note Text: Physical Therapy Treatment SERVICE DATE: 12/09/2022 SERVICE TIME: 930 to 954 ROOM: [place] [address] Total Joint Replacement Discharge Readiness: Cleared from Physical Therapy Recommended Discharge Disposition: Home Anticipated Discharge Needs: Physical Assist at Home Physical Assist at Home for: Cleaning, Laundry, Meals, Stairs, Safety Recommended Discharge Equipment: No equipment needs anticipated PT 6 Clicks Score: 24 Pt agreeable to participate. Reports slight improvement in pain compared to yesterday but relies highly on TESTER REGULATOR. Pt able to ambulate around unit with [...] control yesterday. Today it's more like an 8.5/10 CURRENT FUNCTIONAL STATUS: Most recent performance Current Functional Mobility Assist Level Additional Information Rolling Supine to Sit Modified Independent Sit to Supine Minimal Assistance, Additional Information with R LE Scooting Modified Independent Sit to Stand Supervision Stand [...] Difficulty walking-musculoskeleta l Interventions Provided: Therapeutic Activity (95864), Gait Training (37866) Therapeutic Activity (87761) Treatment Minutes: 10 $ Therapeutic Activity (29206) Billed Units: 1 unit Gait Training (60340) Treatment Minutes: 14 $ Gait Training (14925) Billed Units: 1 unit Training AND Education [...] for this therapy (more content not included)... [facility] XR LUMBAR 2V AP/LATon 2022 XR LUMBAR 2V AP/LAT * * *Final Report* * * DATE OF EXAM: Dec 09 2022 2:02PM SURI 5229 - XR LUMBAR 2V AP/LAT / [...] IMPRESSION: Postoperative and degenerative changes as described. Nurse Executive: COURTNEY Transcribe Date/Time: Dec 09 2022 3:39P Dictated by : DONNY WOO DO This examination was interpreted and the report reviewed and electronically signed by: DONNY WOO DO on Dec 09 2022 3:42PM EST [id number] Normal [facility] Basic metabolic 2000 panelon 12-08-2022 Anion gap [Moles/Vol] 7 mmol/L Low 9-18 [facility] Comment on above: Order Comment: Shahrzad dumont Type: BLOOD SPECIMEN Ordering Facility: [facility] Address: [address] [place] [address] Performed By: #### 2 4321-2 #### [facility] CLIA [id number] [address] [place] [address] [place] Calcium [Mass/Vol] 8.2 mg/dL Low 8.5-10.2 [facility] Comment on above: Order Comment: Shahrzad dumont Type: BLOOD SPECIMEN Ordering Facility: [facility] Address: [address] [place] [address] Performed By: #### 2 4321-2 #### [facility] CLIA [id number] [address] [place] [address] [place] Chloride [Moles/Vol] 106 mmol/L High 97-105 [facility] Comment on above: Order Comment: Shahrzad dumont Type: BLOOD SPECIMEN Ordering Facility: [facility] Address: [address] [place] [address] Performed By: #### 2 4321-2 #### [facility] CLIA [id number] [address] [place] [address] [place] CO2 [Moles/Vol] 28 mmol/L Normal 22-30 [facility] Comment on above: Order Comment: Shahrzad dumont Type: BLOOD SPECIMEN Ordering Facility: [facility] Address: [address] [place] [address] Performed By: #### 2 4321-2 #### [facility] [place] [id number] [address] [place], [place] [address] [place] Creatinine [Mass/Vol] 1.35 mg/dL High 0.73-1.22 [facility] Comment on above: Order Comment: Shahrzad men Type: BLOOD SPECIMEN Ordering Facility: [facility] Address: [address] [place] [address] Performed By: #### 2 4321-2 #### [facility] IA [id number] [address] [place] [address] [place] Creatinine and Glomerular filtration rate.predicted panel (S/P/Bld) 60 mL/min/1.73m??? Normal >=60 [facility] Comment on above: Order Comment: Shahrzad dumont Type: BLOOD SPECIMEN Ordering Facility: [facility] Address: [address] [place] [address] Result Comment: Leah mated Glomerular Filtration Rate [...] GFR. Performed By: #### 2 4321-2 #### [facility] [place] [id number] [address] [place] [address] [place] Glucose [Mass/Vol] 139 mg/dL High 74-99 [facility] Comment on above: Order Comment: Shahrzad tim Type: BLOOD SPECIMEN Ordering Facility: [facility] Address: [address] [place] [address] Result Comment: The [place] Diabetes Association (ADA) provides guidance for cutoff [...] Standards of Medical Care in Diabetes 2016, [place] [employer]. Diabetes Care. 2016.39(Suppl 1). Performed By: #### 2 4321-2 #### [facility] CLIA [id number] [address] [place] [address] [place] Potassium [Moles/Vol] 3.7 mmol/L Normal 3.7-5.1 [facility] Comment on above: Order Comment: Shahrzad dumont Type: BLOOD SPECIMEN Ordering Facility: [facility] Address: [address] [place] [address] Performed By: #### 2 4321-2 #### [facility] CLIA [id number] [address] [place] [address] [place] Sodium [Moles/Vol] 141 mmol/L Normal 136-144 [facility] Comment on above: Order Comment: Shahrzad dumont Type: BLOOD SPECIMEN Ordering Facility: [facility] Address: [address] [place] [address] Performed By: #### 2 4321-2 #### [facility] CLIA [id number] [address] [place] [address] [place] Urea nitrogen [Mass/Vol] 23 mg/dL Normal 9-24 [facility] Comment on above: Order Comment: Shahrzad dumont Type: BLOOD SPECIMEN Ordering Facility: [facility] Address: [address] [place] [address] Performed By: #### 2 4321-2 #### [facility] CLIA [id number] [address] [place] [address] [place] CASE MGT INIT ASSESon 2022 CASE MGT INIT ASSES HNO ID: [id number] Author: Gloria Toro RN Service: ? Author Type: Registered Nurse Type: Care Mgt Initial Assessment Filed: 12/08/2022 8:48 AM Note Text: CARE MANAGEMENT: ASSESSMENT AND DISCHARGE PLAN SERVICE DATE: December 08, 2022 SERVICE TIME: 8:46 am PCP: Derick Isabel MD Primary Contact: Extended Emergency Contact Information Primary Emergency Contact: Darryl Simental Address: [address] [place] [address] [place] [address] [facility] Mobile Relation: Spouse Admission Status: Inpatient - SURGERY/PROCEDURE(S): L2-S1 revision instrumented fusion L2/3, L3/4 TLIF Insurance Provider: [employer] [facility] Discharge Planning requested by: Per Department Practice [...] to go home, General wellness, Less pain [place] of Choice Explained: [place] of Choice Given: No Reason Not Given: No placements necessary Discharge Planning Participant(s): Patient Patient/Family Comments: Caregiver Assessment: Transport at Discharge: Needs Prior to Discharge: Needs Prior to Discharge: To Be Determined;OT/PT Evaluation Post-Acute Discharge Plan: CM met with patient at the bedside this a.m., has rollator, cane AND walker, says will be driving him home at DC and can assist him as well, per eval, no further skilled PT / OT needed at DC. CM Department will continue to follow until DC. SIGNATURE: Gloria Toro RN PATIENT NAME: Sukhdeep Simental DATE: December 08, 2022 TIME: 8:46 AM CONTACT #: [phone] [facility] CBC panel Auto (Bld)on 12-08 Erythrocyte distribution width (RBC) [Ratio] 12.8 % Normal 11.5-15.0 [facility] Comment on above: Order Comment: Speci men Type: BLOOD SPECIMEN Ordering Facility: [facility] Address: [address] [place] [address] Performed By: #### 5 8410-2 #### [facility] CLIA [id number] [address] [place] [address] [place] Hematocrit (Bld) [Volume fraction] 34.8 % Low 39.0-51.0 [facility] Comment on above: Order Comment: Speci men Type: BLOOD SPECIMEN Ordering Facility: [facility] Address: [address] [place] [address] Performed By: #### 5 8410-2 #### [facility] CLIA [id number] [address] [place] [address] [place] Hemoglobin (Bld) [Mass/Vol] 11.7 g/dL Low 13.0-17.0 [facility] Comment on above: Order Comment: Speci men Type: BLOOD SPECIMEN Ordering Facility: [facility] Address: [address] [place] [address] Performed By: #### 5 8410-2 #### [facility] CLIA [id number] [address] [place] [address] [place] MCH (RBC) [Entitic mass] 31.8 pg Normal 26.0-34.0 [facility] Comment on above: Order Comment: Speci men Type: BLOOD SPECIMEN Ordering Facility: [facility] Address: [address] [place] [address] Performed By: #### 5 8410-2 #### [facility] CLIA [id number] [address] [place] [address] [place] MCHC (RBC) [Mass/Vol] 33.6 g/dL Normal 30.5-36.0 [facility] Comment on above: Order Comment: Speci men Type: BLOOD SPECIMEN Ordering Facility: [facility] Address: [address] [place] [address] Performed By: #### 5 8410-2 #### [facility] CLIA [id number] [address] [place] [address] [place] MCV (RBC) [Entitic vol] 94.6 fL Normal 80.0-100.0 [facility] Comment on above: Order Comment: Speci men Type: BLOOD SPECIMEN Ordering Facility: [facility] Address: [address] [place] [address] Performed By: #### 5 8410-2 #### [facility] CLIA [id number] [address] [place] [address] [place] Nucleated RBC (Bld) [#/Vol] 10*3/uL Normal <0.01 [facility] Comment on above: Order Comment: Speci men Type: BLOOD SPECIMEN Ordering Facility: [facility] Address: [address] [place] [address] Performed By: #### 5 8410-2 #### [facility] CLIA [id number] [address] [place] [address] [place] Platelet mean volume (Bld) [Entitic vol] 9.4 fL Normal 9.0-12.7 [facility] Comment on above: Order Comment: Speci men Type: BLOOD SPECIMEN Ordering Facility: [facility] Address: [address] [place] [address] Performed By: #### 5 8410-2 #### [facility] CLIA [id number] [address] [place] [address] [place] Platelets (Bld) [#/Vol] 162 10*3/uL Normal 150-400 [facility] Comment on above: Order Comment: Speci men Type: BLOOD SPECIMEN Ordering Facility: [facility] Address: [address] [place] [address] Performed By: #### 5 8410-2 #### [facility] CLIA [id number] [address] [place] [address] [place] RBC (Bld) [#/Vol] 3.68 10*6/uL Low 4.20-6.00 [facility] Comment on above: Order Comment: Speci men Type: BLOOD SPECIMEN Ordering Facility: [facility] Address: [address] [place] [address] Performed By: #### 5 8410-2 #### [facility] CLIA [id number] [address] [place], [place] [address] [place] WBC (Bld) [#/Vol] 7.95 10*3/uL Normal 3.70-11.00 [facility] Comment on above: Order Comment: Speci men Type: BLOOD SPECIMEN Ordering Facility: [facility] Address: [address] [place] [address] [place] [address] Performed By: #### 5 8410-2 #### [facility] CLIA [id number] [address] [place], [place] [address] [place] CONSULTon 12-08-2022 CONSULT HNO ID: [id number] Author: Lulu Oviedo MD Service: General Internal [...] Recent Labs 12/08 (more content not included)... Normal [facility] NURSING PROGon 12-08-2022 NURSING PROG HNO ID: [id number] Author: Abdias Pemberton, RN Service: Nursing Author [...] notified of the patient's increased pain after TESTER REGULATOR was DC'ed earlier and transitioned to PO medications. Hydromorphone TESTER REGULATOR reordered per Dr. Mathew. 1729: Hydromorphone TESTER REGULATOR restarted. 1735: Patient assisted by nursing staff to bed and states that his pain has decreased. Patient resting comfortably in bed at this time. 1900: Patient resting comfortably in bed at this time. [facility] THERAPY NT 12-08-2022 THERAPY NT HNO ID: [id number] Author: Taylor Montoya OTR/L Service: Occupational Therapy Author Type: Occupational Therapist Type: Therapy (PT/OT/Speech/Resp) Filed: 12/08/2022 12:35 PM Note Text: OCCUPATIONAL THERAPY MISSED VISIT SERVICE DATE: 12/08/2022 SERVICE TIME: 1233 to 1233 ROOM: [place] [address] Patient not seen due to Refused Treatment. Patient having a significant amount of pain. Offered patient option of working with OT tomorrow. Pt would prefer OT evaluation tomorrow. SIGNATURE: URSULA Glynn/L PATIENT NAME: Sukhdeep Simental DATE: December 08, 2022 TIME: 12:34 PM [facility] THERAPY NT HNO ID: [id number] Author: Jean-Pierre Lutz, PT, DPT Service: Physical Therapy Author Type: Physical Therapist Type: Therapy (PT/OT/Speech/Resp) Filed: 12/08/2022 8:44 AM Note Text: Physical Therapy Evaluation SERVICE DATE: 12/08/2022 SERVICE TIME: 807 to 08 ROOM: [place] [address] Cleared from Physical Therapy Recommended Discharge Disposition: [...] Weakness (generalized) Interventions Provided: Evaluation, Gait Training (48848) $ Evaluation-Low (50274) Billed Units: 1 unit Gait Training (86370) Treatment Minutes: 8 $ Gait Training (94710) Billed Units: 1 unit Training AND Education [...] DATE: December 08, 2022 TIME: 8:44 AM [facility] ANES POSTPROC EVALon 023 ANES POSTPROC EVAL HNO ID: [id number] Author: Ankit Orlando MD Service: Anesthesiology Author Type: Anesthesiologist Type: Anesthesia Postprocedure Evaluation Filed: 12/07/2022 3:37 PM Note Text: POST ANESTHESIA EVALUATION NOTE : 1965 Procedure Summary Date: 12/07/22 Room / Location: [place] [address] / OR Anesthesia Start: 07 Anesthesia Stop: 125 Procedures: TLIF DECOMPRESSION LAMINECTOMY INTERBODY FUSION LUMBAR [...] 1426 Temp 36.9 ?C (98.4 ?F) 12/07/22 142 Pulse 83 12/07/22 142 Resp 18 12/07/22 142 SpO2 98 % 12/07/221425 Post Anesthesia Patient Status Patient Evaluation: PACU. [...] December 07, 2022 TIME: 3:37 PM CSN: [id number] [facility] ANES PRE-OPon 12-07-2022 ANES PRE-OP HNO ID: [id number] Author: Nasim Pruett I, MD Service: Anesthesiology Author Type: Anesthesiologist Type: Anesthesia Preprocedure Evaluation Filed: 12/07/2022 7:02 AM Note Text: ANESTHESIOLOGY DAY OF SURGERY NOTE : 1965 Procedure Information Date/Time: 12/07/22729 Procedures: TLIF DECOMPRESSION LAMINECTOMY INTERBODY FUSION LUMBAR POSTERIOR (PLIF) LEVEL 1 (Spine Lumbar) DECOMPRESSION LAMINECTOMY INTERBODY FUSION LUMBAR POSTERIOR (PLIF) LEVEL 2 (Spine Lumbar) POSTERIOR SEGMENTAL INSTRUMENTATION FOLLOWING LUMBAR FUSION 3-6 LEVELS (Spine Lumbar) INSERTION INTERBODY BIOMED DEVICE(S) W/ANT INSTR ANCHORING TO DISC SPACE W/INTERBODY FUSION,EA INTERSPACE (Spine Lumbar) - L2-S1 revision fusion, L2-3, 3-4 TLIF O-Arm Location: OR / [facility] OR Surgeons: Edd Mathew MD [...] and consent discussed: yes. Patient / Responsible Constitution Party agrees to proceed: yes Patient / Surrogate agrees to blood products: Yes DNR status not reviewed with patient and/or family prior to surgery. Significant changes in the patient condition since the History and Physical, not otherwise documented in primary service progress note: no. Vitals Value Taken Time BP 167/88 12/07/2240 Pulse 78 12/07/2240 Resp 16 12/07/2240 Temp 36.1 ?C (97 ?F) 12/07/2240 SpO2 100 % 12/07/22639 Facility-Administered Medications as [...] December 07, 2022 TIME: 7:01 AM CSN: [id number] [facility] BRIEF OP NOTon 12-07-2022 BRIEF OP NOT HNO ID: [id number] Author: Edd Mathew MD Service: Neurosurgery Author Type: Physician Type: Brief Op Note Filed: 12/07/2022 12:49 PM Note Text: BRIEF OPERATIVE / PROCEDURE NOTE LOG ID: [id number] SURGERY/PROCEDURE DATE: 12/07/2022 INCISION/PROCEDURE START TIME: 8:09 AM INCISION CLOSE/PROCEDURE END TIME: 12:34 PM SURGEON(S)/PROCEDURALI ST(S) AND LIQUOR DEPARTMENT MANAGER(S): Surgeon(s) and Role: * Edd Mathew MD [...] DATE: December 07, 2022 TIME: 12:31 PM [facility] NURSING PROGon 12-07-2022 NURSING PROG HNO ID: [id number] Author: Livia Calix RN Service: ? Author Type: Registered Nurse Type: Nursing Progress Note Filed: 12/07/2022 2:48 PM Note Text: Transfer Note: PATIENT NAME: Sukhdeep Simental [facility] [address] Room: [address] Patient transferred into room/unit 503-2 in stable condition. Patient educated on use of call light, fall precautions, and incentive spirometer. No futher actions taken at this time. Will continue to monitor and check with patient. [facility] OPERATIVE NOon 12-07-2022 OPERATIVE NO HNO ID: [id number] Author: Edd Mathew MD Service: Neurosurgery Author Type: Physician Type: Operative Report Filed: 12/07/2022 3:54 PM Note Text: OPERATIVE/PROCEDURE REPORT LOG ID: [id number] SURGERY/PROCEDURE DATE: 12/07/2022 INCISION/PROCEDURE START TIME: 8:09 AM INCISION CLOSE/PROCEDURE END TIME: 12:34 PM SURGEON(S)/PROCEDURALI ST(S) AND LIQUOR DEPARTMENT MANAGER(S): Surgeon(s) and Role: * Edd Mathew MD [...] and sized at a 10 mm. The [employer] system was the instrumentation system used. Local [...] drill was used to make a small yard pilot hole. The gear shift along with pedicle [...] Implant Name Type Inv. Item Serial No. Assistant Director Of Admissions Lot No. LRB No. Used Action [id number] BIOACTIVE BONE GRAFT SUBSTITUTE [id number] CM Implant [place] [id number] N/A 1 Implanted CAGE TRITANIUM 6D [id number] SPINAL STERILE LATEX FREE LUMBAR POSTERIOR - [id number] Implant CAGE TRITANIUM 6D [id number] SPINAL STERILE LATEX FREE LUMBAR POSTERIOR [place] SPINE [id number] N/A 1 Implanted CAGE TRITANIUM 6D [id number] SPINAL STERILE LATEX FREE LUMBAR POSTERIOR - [id number] Implant CAGE TRITANIUM 6D [id number] (more content not included)... [facility] XR LUMBAR 2V AP/LATon 2022 XR LUMBAR 2V AP/LAT * * *Final Report* * * DATE OF EXAM: Dec 07 2022 12:52PM [facility] [place] [place] 5229 - XR LUMBAR 2V AP/LAT / [...] examination for surgical planning and documentation. . Nurse Executive: COURTNEY Transcribe Date/Time: Dec 07 2022 3:13P Dictated by : DONNY WOO DO This examination was interpreted and the report reviewed and electronically signed by: DONNY WOO DO on Dec 07 2022 3:15PM EST [id number] [facility] XR LUMBAR 2V AP/LAT * * *Final [...] Intraoperative examination for surgical planning and documentation. Nurse Executive: COURTNEY Transcribe Date/Time: Dec 07 2022 2:43P Dictated by : DONNY WOO DO This examination was interpreted and the report reviewed and electronically signed by: DONNY WOO DO on Dec 07 2022 2:46PM EST [id number] [facility] XR LUMBAR 2V AP/LAT * * *Final [...] examination for surgical planning and documentation. . Nurse Executive: PSCJohn Transcribe Date/Time: Dec 07 2022 2:37P Dictated by : DONNY WOO DO This examination was interpreted and the report reviewed and electronically signed by: DONNY WOO DO on Dec 07 2022 2:40PM EST [id number] [facility] 11-29-2022 [facility] Telephone (NIQ) SUKHDEEP SIMENTAL ([id number]) 1965 M Date Time Provider Department 11/29/22 [facility] During your visit today, we recorded the following information about you: Moriah Ferguson 11/29/2022 9:50 AM Signed Patient called regarding a C/9 being filed for his Dec 07 surgery. He spoke to his [facility] contact and they said nothing has been filed yet. Please update patient. Juan Pablo Nova RN 11/29/2022 10:27 AM Signed C9 sent to provider for signature. Awaiting signature. Juan Pablo Nova RN 11/29/2022 12:20 PM Signed Signed C9 sent to [facility] and [facility]. Faxed verifications received. Kathe Lezama 12/05/2022 11:01 AM Signed Patient calling asking for an update on his C9 and surgery approval. He would like to know if nurse can reach out to [facility] for an update and let him know. Juan Pablo Nova, BRETT 12/05/2022 11:43 AM Signed Called [facility] and discussed patient's upcoming surgery. Per [facility] she did already explain to the patient that the information was submitted to the [employer] Administrator for review and does take up to 5 business days for a decision. Juan Pablo Nova, BRETT 12/05/2022 1:16 PM Signed Spoke with patient. Informed case is still on for Saturday and that I spoke with [facility]. Patient appreciative of call. Emily Rondon 12/06/2022 11:34 AM Addendum [facility] called from [facility], regarding patient surgery tomorrow. Surgery has been approved based on what it was shown on the medical record. [facility] wanted a called back # [phone] Emily Rondon 12/06/2022 11:35 AM Signed Received [facility] workers compensation forms. Scan in patient chart [...] Date Reviewed: 11/21/2022 Reviewed by: Cj Galloway APRN.ASSESSMENT MANAGER - Fully Assessed Reason for Visit: Bwc (Worker's Comp) [4136] Prescriptions as of 12/06/2022 [...] by JUAN PABLO NOVA on 11/29/22 Normal [facility] CBC W Auto Differential pane l (Bld)on 11-21-2022 Basophils (Bld) [#/Vol] 0.04 10*3/uL Normal <0.11 [facility] Comment on above: Order Comment: Speci men Type: BLOOD SPECIMENOrdering Facility: [facility] Address: [address] [place] [address] [place] [address] Performed By: #### 5 7021-8 ####[facility] [id number] [place] [address] [place] Basophils/100 WBC (Bld) 0.8 % Normal [facility] Comment on above: Order Comment: Speci men Type: BLOOD SPECIMENOrdering Facility: [facility] Address: [address] [place] [address] Performed By: #### 5 7021-8 ####[facility] [id number] [place] [address] [place] Differential cell count method Nom (Bld) Auto Normal [facility] Comment on above: Order Comment: Speci men Type: BLOOD SPECIMENOrdering Facility: [facility] Address: [address] [place] [address] Performed By: #### 5 7021-8 ####[facility] [id number] [place] [address] [place] Eosinophils (Bld) [#/Vol] 0.11 10*3/uL Normal <0.46 [facility] Comment on above: Order Comment: Speci men Type: BLOOD SPECIMENOrdering Facility: [facility] Address: [address] [place] [address] Performed By: #### 5 7021-8 ####[facility] [id number] [address] [place] Eosinophils/100 WBC (Bld) 2.1 % Normal [facility] Comment on above: Order Comment: Speci men Type: BLOOD SPECIMENOrdering Facility: [facility] Address: [address] [place], [place] [address] Performed By: #### 5 7021-8 ####[facility] [id number] [place] [address] [place] Erythrocyte distribution width (RBC) [Ratio] 12.4 % Normal 11.5-15.0 [facility] Comment on above: Order Comment: Speci men Type: BLOOD SPECIMENOrdering Facility: [facility] Address: [address] [place] [address] Performed By: #### 5 7021-8 ####[facility] [id number] [address] [place] Hematocrit (Bld) [Volume fraction] 42.9 % Normal 39.0-51.0 [facility] Comment on above: Order Comment: Speci men Type: BLOOD SPECIMENOrdering Facility: [facility] Address: [address] Performed By: #### 5 7021-8 ####[facility] LABIA [id number] [place] [address] [place] Hemoglobin (Bld) [Mass/Vol] 14.5 g/dL Normal 13.0-17.0 [facility] Comment on above: Order Comment: Speci men Type: BLOOD SPECIMENOrdering Facility: [facility] Address: [address] Performed By: #### 5 7021-8 ####[facility] LABIA [id number] [address] [place] Immature granulocytes (Bld) [#/Vol] 10*3/uL Normal <0.10 [facility] Comment on above: Order Comment: Speci men Type: BLOOD SPECIMENOrdering Facility: [facility] Address: [address] Performed By: #### 5 7021-8 ####[facility] LABCLIA [id number] [address] [place] Immature granulocytes/100 WBC (Bld) 0.4 % Normal [facility] Comment on above: Order Comment: Speci men Type: BLOOD SPECIMENOrdering Facility: [facility] Address: [address] Performed By: #### 5 7021-8 ####[facility] LABCLIA [id number] [place] [address] [place] Lymphocytes (Bld) [#/Vol] 1.45 10*3/uL Normal 1.00-4.00 [facility] Comment on above: Order Comment: Speci men Type: BLOOD SPECIMENOrdering Facility: [facility] Address: [address] [place] [address] Performed By: #### 5 7021-8 ####[facility]IA [id number] [place] [address] [place] Lymphocytes/100 WBC (Bld) 27.4 % Normal [facility] Comment on above: Order Comment: Speci men Type: BLOOD SPECIMENOrdering Facility: [facility] Address: [address] [place] [address] Performed By: #### 5 7021-8 ####[facility] LABIA [id number] [place] [address] [place] MCH (RBC) [Entitic mass] 31.7 pg Normal 26.0-34.0 [facility] Comment on above: Order Comment: Speci men Type: BLOOD SPECIMENOrdering Facility: [facility] Address: [address] [place], [place] [address] Performed By: #### 5 7021-8 ####[facility]IA [id number] [place] [address] [place] MCHC (RBC) [Mass/Vol] 33.8 g/dL Normal 30.5-36.0 [facility] Comment on above: Order Comment: Speci men Type: BLOOD SPECIMENOrdering Facility: [facility] Address: [address] [place], [place] [address] Performed By: #### 5 7021-8 ####[facility]IA [id number] [address] [place] MCV (RBC) [Entitic vol] 93.7 fL Normal 80.0-100.0 [facility] Comment on above: Order Comment: Speci men Type: BLOOD SPECIMENOrdering Facility: [facility] Address: [address] Performed By: #### 5 7021-8 ####[facility] LABCLIA [id number] [place] [address] [place] Monocytes (Bld) [#/Vol] 0.49 10*3/uL Normal <0.87 [facility] Comment on above: Order Comment: Speci men Type: BLOOD SPECIMENOrdering Facility: [facility] Address: [address] [place], [place] [address] Performed By: #### 5 7021-8 ####[facility] LABCLIA [id number] [place] [address] [place] Monocytes/100 WBC (Bld) 9.2 % Normal [facility] Comment on above: Order Comment: Speci men Type: BLOOD SPECIMENOrdering Facility: [facility] Address: [address] [place], [place] [address] Performed By: #### 5 7021-8 ####[facility] LABCLIA [id number] [place] [address] [place] Neutrophils (Bld) [#/Vol] 3.19 10*3/uL Normal 1.45-7.50 [facility] Comment on above: Order Comment: Speci men Type: BLOOD SPECIMENOrdering Facility: [facility] Address: [address] [place], [place] [address] Performed By: #### 5 7021-8 ####[facility] LABCLIA [id number] [place] [address] [place] Neutrophils/100 WBC (Bld) 60.1 % Normal [facility] Comment on above: Order Comment: Speci men Type: BLOOD SPECIMENOrdering Facility: [facility] Address: [address] [place], [place] [address] Performed By: #### 5 7021-8 ####[facility] LABCLIA [id number] [place] [address] [place] Nucleated RBC (Bld) [#/Vol] 10*3/uL Normal <0.01 [facility] Comment on above: Order Comment: Speci men Type: BLOOD SPECIMENOrdering Facility: [facility] Address: [address] [place] [address] Performed By: #### 5 7021-8 ####[facility] LABCLIA [id number] [place] [address] [place] Nucleated RBC/100 WBC (Bld) [Ratio] 0.0 /100 WBC Normal [facility] Comment on above: Order Comment: Speci men Type: BLOOD SPECIMENOrdering Facility: [facility] Address: [address] [place] [phone] Performed By: #### 5 7021-8 ####[facility]IA [id number] [place] [address] [place] Platelet mean volume (Bld) [Entitic vol] 9.4 fL Normal 9.0-12.7 [facility] Comment on above: Order Comment: Speci men Type: BLOOD SPECIMENOrdering Facility: [facility] Address: [address] [place] [address] Performed By: #### 5 7021-8 ####[facility]IA [id number] [place] [address] [place] Platelets (Bld) [#/Vol] 222 10*3/uL Normal 150-400 [facility] Comment on above: Order Comment: Speci men Type: BLOOD SPECIMENOrdering Facility: [facility] Address: [address] [place] Performed By: #### 5 7021-8 ####[facility] LABCLIA [id number] [place] [address] [place] RBC (Bld) [#/Vol] 4.58 10*6/uL Normal 4.20-6.00 [facility] Comment on above: Order Comment: Speci men Type: BLOOD SPECIMENOrdering Facility: [facility] Address: [address] [place] [address] Performed By: #### 5 7021-8 ####[facility] LABCLIA [id number] [address] [place] OF [facility] WBC (Bld) [#/Vol] 5.30 10*3/uL Normal 3.70-11.00 [facility] Comment on above: Order Comment: Speci men Type: BLOOD SPECIMENOrdering Facility: [facility] Address: [address] [place] [address] Performed By: #### 5 7021-8 ####[facility] LABCLIA [id number] [address] OF [facility] CONFIRM BLOOD TYPEon 023 ABO A Normal [facility] Comment on above: Order Comment: Speci men Type: BLOOD SPECIMENOrdering Facility: [facility] Address: [address] [place] [address] Performed By: #### C ONABO ####[facility] BLOOD BANKCLIA [id number] [address] [place] Rh Nom (Bld) Negative Normal [facility] Comment on above: Order Comment: Speci men Type: BLOOD SPECIMENOrdering Facility: [facility] Address: [address] [place] [address] Performed By: #### C ONABO ####[facility] BLOOD BANKCLIA [id number] [address] [place] Comprehensive metabolic 2000 panelon 11-21-2022 Albumin [Mass/Vol] 4.3 g/dL Normal 3.9-4.9 [facility] Comment on above: Order Comment: Speci men Type: BLOOD SPECIMENOrdering Facility: [facility] Address: [address] [place], [place] [address] Performed By: #### 2 4323-8 ####[facility] LABCLIA [id number] [place] [address] [place] ALP [Catalytic activity/Vol] 68 U/L Normal 38-113 [facility] Comment on above: Order Comment: Speci men Type: BLOOD SPECIMENOrdering Facility: [facility] Address: [address] [address] Performed By: #### 2 4323-8 ####[facility] LABCLIA [id number] [place] [address] [place] ALT [Catalytic activity/Vol] 16 U/L Normal 10-54 [facility] Comment on above: Order Comment: Speci men Type: BLOOD SPECIMENOrdering Facility: [facility] Address: [address] [place], [place] [address] Performed By: #### 2 4323-8 ####[facility] LABCLIA [id number] [place] [address] [place] Anion gap [Moles/Vol] 10 mmol/L Normal 9-18 [facility] Comment on above: Order Comment: Speci men Type: BLOOD SPECIMENOrdering Facility: [facility] Address: [address] [place], [place] [address] Performed By: #### 2 4323-8 ####[facility] LABCLIA [id number] [place] [address] [place] AST [Catalytic activity/Vol] 21 U/L Normal 14-40 [facility] Comment on above: Order Comment: Speci men Type: BLOOD SPECIMENOrdering Facility: [facility] Address: [address] [place], [place] [address] Performed By: #### 2 4323-8 ####[facility] LABCLIA [id number] [place] [address] [place] Bilirubin [Mass/Vol] 0.5 mg/dL Normal 0.2-1.3 [facility] Comment on above: Order Comment: Speci men Type: BLOOD SPECIMENOrdering Facility: [facility] Address: [address] [place] [address] Performed By: #### 2 4323-8 ####[facility] LABCLIA [id number] [place] [address] [place] Calcium [Mass/Vol] 9.9 mg/dL Normal 8.5-10.2 [facility] Comment on above: Order Comment: Speci men Type: BLOOD SPECIMENOrdering Facility: [facility] Address: [address] [place] [address] Performed By: #### 2 4323-8 ####[facility] LABCLIA [id number] [place] [address] [place] Chloride [Moles/Vol] 106 mmol/L High 97-105 [facility] Comment on above: Order Comment: Speci men Type: BLOOD SPECIMENOrdering Facility: [facility] Address: [address] [place], [place] [address] Performed By: #### 2 4323-8 ####[facility] LABCLIA [id number] [place] [address] [place] CO2 [Moles/Vol] 27 mmol/L Normal 22-30 [facility] Comment on above: Order Comment: Speci men Type: BLOOD SPECIMENOrdering Facility: [facility] Address: [address] [place], [place] [address] Performed By: #### 2 4323-8 ####[facility] LABCLIA [id number] [place] [address] [place] Creatinine [Mass/Vol] 1.22 mg/dL Normal 0.73-1.22 [facility] Comment on above: Order Comment: Speci men Type: BLOOD SPECIMENOrdering Facility: [facility] Address: [address] [address] Performed By: #### 2 4323-8 ####[facility]IA [id number] [address] [place] Creatinine and Glomerular filtration rate.predicted panel (S/P/Bld) 68 mL/min/1.73m??? Normal >=60 [facility] Comment on above: Order Comment: Shahrzad dumont Type: BLOOD SPECIMENOrdering Facility: [facility] Address: [address] [address] Result Comment: Leah mated Glomerular Filtration Rate [...] actual GFR. Performed By: #### 2 4323-8 ####[facility] LABIA [id number] [place] [address] [place] Glucose [Mass/Vol] 111 mg/dL High 74-99 [facility] Comment on above: Order Comment: Shahrzad dumont Type: BLOOD SPECIMENOrdering Facility: [facility] Address: [address] [place] [address] Result Comment: The [place] [employer] (ADA) provides guidance for cutoff [...] Standards of Medical Care in Diabetes 2016, [place] [employer]. Diabetes Care. 2016.39(Suppl 1). Performed By: #### 2 4323-8 ####[facility] LABCLIA [id number] [place] [address] [place] Potassium [Moles/Vol] 4.2 mmol/L Normal 3.7-5.1 [facility] Comment on above: Order Comment: Speci men Type: BLOOD SPECIMENOrdering Facility: [facility] Address: [address] [place] [address] Performed By: #### 2 4323-8 ####[facility] LABIA [id number] [place] [address] [place] Protein [Mass/Vol] 7.0 g/dL Normal 6.3-8.0 [facility] Comment on above: Order Comment: Speci men Type: BLOOD SPECIMENOrdering Facility: [facility] Address: [address] [place] [address] Performed By: #### 2 4323-8 ####[facility]IA [id number] [place] [address] [place] Sodium [Moles/Vol] 143 mmol/L Normal 136-144 [facility] Comment on above: Order Comment: Speci men Type: BLOOD SPECIMENOrdering Facility: [facility] Address: [address] [place] [address] Performed By: #### 2 4323-8 ####[facility] LABIA [id number] [place] [address] [place] Urea nitrogen [Mass/Vol] 22 mg/dL Normal 9-24 [facility] Comment on above: Order Comment: Speci men Type: BLOOD SPECIMENOrdering Facility: [facility] Address: [address] [place] [address] Performed By: #### 2 4323-8 ####[facility] LABIA [id number] [place] [address] [place] [id number] 11-21-2022 ECG01 Ventricular Rate : 6 5 BPM Atrial Rate : 65 BPM P-R Interval : 180 ms QRS Duration : 98 ms Q-T Interval : 440 ms QTC Calculation(Bazett) : 457 ms Calculated P [place] : 0 degrees Calculated R [place] : -10 degrees Calculated T [place] : 49 degrees NORMAL SINUS RHYTHM NORMAL ECG Confirmed by SHANIA RESTREPO M.D. ([id number]) on 11/22/2022 12:00:34 PM NAME : SUKHDEEP SIMENTAL PID : [id number] : 1965 Gender : Male Race : ORD : Procedure Date : Nov 21 2022 10:59:49 Edit Date : Nov 22 2022 12:00:38 Diagnosis: NORMAL SINUS RHYTHM NORMAL ECG Confirmed by SHANIA RESTREPO M.D. ([id number]) on 11/22/2022 12:00:34 PM Test Reason : SURGERY Location : 545 : [facility] Overread By : SHANIA RESTREPO M.D. Edited By : SHANIA RESTREPO M.D. Referred By : EDD MATHEW Acquired by : Santiago DANIELLE [facility] HISTORY PHYSICALon HISTORY PHYSICAL HNO ID: [id number] Author: Cj Galloway APRN.ASSESSMENT MANAGER Service: ? Author Type: Nurse Practitioner Type: [...] pain. Skin: (more content not included)... Normal [facility] HbA1c (Bld)on 11-21-2022 Average glucose Estimated from glycated hemoglobin (Bld) [Mass/Vol] 111 mg/dL Normal [facility] Comment on above: Order Comment: Speci men Type: BLOOD SPECIMENOrdering Facility: [facility] Address: [address] [id number] Result Comment: eAG: (Estimated average glucose) is a calculated value from HgbA1c and is education courses sales representative of the average blood glucose level in the last 2-3 month period. Performed By: #### 5 5454-3 ####[facility] LABCLIA [id number] [place] [address] [place] HbA1c (Bld) [Mass fraction] 5.5 % Normal 4.3-5.6 [facility] Comment on above: Order Comment: Speci men Type: BLOOD SPECIMENOrdering Facility: [facility] Address: [address] [place] [address] Result Comment: [place] Diabetes Association guidelines indicate that patients with HgbA1c in the range 5.7-6.4% are at increased risk for development of diabetes, and intervention by lifestyle modification may be beneficial. HgbA1c greater or equal to 6.5% is considered diagnostic of diabetes. Performed By: #### 5 5454-3 ####[facility] LABCLIA [id number] [address] TYPE AND SCREEN,30 DAYon ABO A Normal [facility] Comment on above: Order Comment: Speci men Type: BLOOD SPECIMENOrdering Facility: [facility] Address: [address] [place] [address] Performed By: #### T SCR30 ####[facility] BLOOD BANKCLIA [id number] [address] HISTORICAL AB SCR STATUS Negative Normal [facility] Comment on above: Order Comment: Speci men Type: BLOOD SPECIMENOrdering Facility: [facility] Address: [address] [place] [address] Performed By: #### T SCR30 ####[facility] BLOOD BANKCLIA [id number] [address] [place] Rh Nom (Bld) Negative Normal [facility] Comment on above: Order Comment: Speci men Type: BLOOD SPECIMENOrdering Facility: [facility] Address: [address] [place] [address] Performed By: #### T SCR30 ####[facility] BLOOD BANKCLIA [id number] [address] CNOVon 11-05-2022 CNOV Office Visit (NSFRVW ) SUKHDEEP SIMENTAL ([id number]) 1965 M Date Time Provider Department 11/05/22 [...] by mouth on (more content not included)... Normal [facility] 36on 10-18-2022 36 [place] in radiology called to notify that patient's CT scan showed significant findings. Normal [facility] [place] MYELOGRAM LUMBARon 2022 [place] MYELOGRAM LUMBAR [...] physician:Dr. Mg Start time: 1019 End time: 1029 Conscious sedation was used for the lumbar myelogram due to patient significant back pain and discomfort and anxiety. Timeout: [place] protocol timeout verification performed. PROCEDURE: Estimated blood [...] for detailed findings. Electronically signed: Parvin Mg. Normal [facility] Comment on above: Order Comment: Emiliano islas [...] through with his myelogram on 10/12. Normal [facility] CT LUMBAR SPINE W IV CONTRAS [...] communicated to the ordering clinician by the minute clerk at the time of dictation, on 10/18/2022 at 2:47 PM Electronically signed: Abdias Shannon. [facility] Follow-Upon 08-15-2022 Follow-Up [id number] Sukhdeep Simental 1965 M Date Provider Department Center 08/15/2022 Yulissa-JASON KISER MP ORTHO MPORTHO Family History Problem Relation Age of Onset Dementia Mother Esophageal cancer Father Alcohol abuse Father Family Status - Relation Status Age at Mother Alive Father Level of Service:55864 [place] OFFICE/OUTPATIENT ESTABLISHED LOW MDM 20-29 MIN (GC) Reason for Visit and Comments: Follow-up [372591] - [facility] packet to get surgery approved [facility] 36on 08-10-2022 36 Per juwan - graeme manohar p is an appt to fill out pre-op paperwork. Appt scheduled for next week. [facility] CT ABD/PELVIS WO CONon 07-06 CT ABD/PELVIS [...] by: OBIE TSE Date: 2022-07-06 13:19 Normal [facility] Orders Onlyon 06-25-2022 Orders Only [id number] Sukhdeep Simental 1965 M Date Provider Department Center 06/25/2022 Courtney3-BLAISE YEPEZ MP ORTHO MPORTHO Family History Problem Relation Age of Onset Dementia Mother Esophageal cancer Father Alcohol abuse Father Family Status - Relation Status Age at Mother Alive Father Normal [facility] Follow-Upon 06-22-2022 Follow-Up [id number] Sukhdeep Simental 1965 M Date Provider Department Center 06/22/2022 Benito-PAYTON HELM MP ORTHO MPORTHO Family History Problem Relation Age of Onset Dementia Mother Esophageal cancer Father Alcohol abuse Father Family Status - Relation Status Age at Mother Alive Father Level of Service:23143 [place] POSTOP FOLLOW UP VISIT RELATED TO ORIGINAL PX Reason for Visit and Comments: Follow-up [486781] Normal [facility] Office Visiton 06-22-2022 Follow-up visit [id number] Sukhdeep Simental 1965 M Date Provider Department Center 06/22/2022 Yulissa-JASON KISER MP ORTHO MPORTHO Family History Problem Relation Age of Onset Dementia Mother Esophageal cancer Father Alcohol abuse Father Family Status - Relation Status Age at Mother Alive Father Level of Service:92825 [place] OFFICE/OUTPATIENT ESTABLISHED MOD MDM 30-39 MIN (57) Reason for Visit and Comments: Follow-up [[id number]] Normal [facility] PTH INTACTon 06-12-2022 PTH, Intact 38 pg/mL Normal 15-65 [facility] Comment on above: Performed By: #### P T #### [facility] [address] [place] [address] Dr. Hugh Landis FERRITINon 06-11-2022 Ferritin [Mass/Vol] 96.0 ng/mL Normal 26.0-388.0 [facility] Comment on above: Performed By: #### P T #### [facility] [address] [place] [address] Dr. Hugh Landis HEMOGRAM AND PLATELon 2022 Hematocrit (Bld) [Volume fraction] 39.1 % Critically low 42.0-54.0 [facility] Comment on above: Performed By: #### H H #### [facility] [address] [place] [address] Dr. Hugh Landis Hemoglobin (Bld) [Mass/Vol] 13.3 g/dL Critically low 14.0-18.0 [facility] Comment on above: Performed By: #### H H #### [facility] [address] [place] [address] Dr. Hugh Landis MCH (RBC) [Entitic mass] 30.5 pg Normal 25.9-34.0 [facility] Comment on above: Performed By: #### H H #### [facility] [address] [place] [address] Dr. Hugh Landis MCHC (RBC) [Mass/Vol] 34.0 g/dL Normal 29.9-35.2 [facility] Comment on above: Performed By: #### H H #### [facility] [address] [place] [address] Dr. Hugh Landis MCV (RBC) [Entitic vol] 89.7 fL Normal 80.0-94.0 [facility] Comment on above: Performed By: #### H H #### [facility] [address] [address] [address] Hugh Landis PLT 230 103/ul Normal 150-450 [facility] Comment on above: Performed By: #### H H #### [facility] [address] [address] [address] Hugh Landis RBC 4.36 106/ul Critically low 4.70-6.10 [facility] Comment on above: Performed By: #### H H #### [facility] [address] [address] [address] Hugh Landis WBC 4.8 103/ul Normal 4.0-11.0 [facility] Comment on above: Performed By: #### H H #### [facility] [address] [address] [address] Hugh Landis IRON AND TIBCon 06-11-2022 % SATURATION 55.0 % Normal [facility] Comment on above: Performed By: #### P T #### [facility] [address] [place] [address] Dr. Hugh Landis Iron [Mass/Vol] 137.0 ug/dL Normal 65.0-175.0 [facility] Comment on above: Performed By: #### P T #### [facility] [address] [address] [address] Hugh Landis TIBC DIRECT 249.0 ug/dL Critically low 250.0-450.0 [facility] Comment on above: Performed By: #### P T #### [facility] [address] [place] [address] Dr. Hugh Landis MAGNESIUMon 06-11-2022 Magnesium [Mass/Vol] 1.9 mg/dL Normal 1.8-2.4 [facility] Comment on above: Performed By: #### P TT #### [facility] [address] [place] [address] Dr. Hugh Landis RENAL FUNCTION PANELon 06-11 Albumin [Mass/Vol] 3.5 g/dL Normal 3.4-5.0 [facility] Comment on above: Performed By: #### P TT #### [facility] [address] [address] [address] Hugh Landis Calcium [Mass/Vol] 9.5 mg/dL Normal 8.5-10.1 [facility] Comment on above: Performed By: #### P TT #### [facility] [address] [address] [address] Hugh Landis Chloride [Moles/Vol] 107 mmol/L Normal 98-107 [facility] Comment on above: Performed By: #### P TT #### [facility] [address] [address] Dr. Hugh Landis CO2 [Moles/Vol] 30.9 mmol/L Normal 21.0-32.0 [facility] Comment on above: Performed By: #### P TT #### [facility] [address] [address] [address] Hugh Landis Creatinine [Mass/Vol] 1.41 mg/dL Critically high 0.70-1.30 [facility] Comment on above: Performed By: #### P TT #### [facility] [address] [address] [address] Hugh Landis EGFR-AF [place] >60 Normal >=60 [facility] Comment on above: Performed By: #### P TT #### [facility] [address] [place] [address] Dr. Hugh Landis EGFR-NON AF [place] 52 mL/min/1.73m2 Critically low >=60 [facility] Comment on above: Performed By: #### P TT #### [facility] [address] [address] [address] Hugh Landis Glucose [Mass/Vol] 118 mg/dL Critically high 74-106 [facility] Comment on above: Performed By: #### P TT #### [facility] [address] [address] [address] Hugh Landis Phosphate [Mass/Vol] 3.0 mg/dL Normal 2.6-4.7 [facility] Comment on above: Performed By: #### P TT #### [facility] [address] [address] [address] Hugh Landis Potassium [Moles/Vol] 3.9 mmol/L Normal 3.5-5.1 [facility] Comment on above: Performed By: #### P TT #### [facility] [address] [place] [address] Dr. Hugh Landis Sodium [Moles/Vol] 143 mmol/L Normal 136-145 [facility] Comment on above: Performed By: #### P TT #### [facility] [address] [place] [address] Dr. Hugh Landis Urea nitrogen [Mass/Vol] 19.0 mg/dL Critically high 7.0-18.0 [facility] Comment on above: Performed By: #### P TT #### [facility] [address] [place] [address] Dr. Hugh Landis UA RANDOM W/MICROSCOPICon BACTERIA NONE SEEN Normal NONE SEEN [facility] Comment on above: Performed By: #### P T #### [facility] [address] [place] [address] Dr. Hugh Landis Bilirubin Ql (U) Negative Normal NEGATIVE [facility] Comment on above: Performed By: #### P T #### [facility] [address] [place] [address] Dr. Hugh Landis CAST NONE SEEN Normal NONE SEEN [facility] Comment on above: Performed By: #### P T #### [facility] [address] [place] [address] Dr. Hugh Landis Clarity (U) CLEAR Normal CLEAR [facility] Comment on above: Performed By: #### P T #### [facility] [address] [place] [address] Dr. Hugh Landis Color (U) YELLOW Normal YELLOW [facility] Comment on above: Performed By: #### P T #### [facility] [address] [place] [address] Dr. Hugh Landis Crystals LM Nom (Urine sed) NONE SEEN Normal NONE SEEN [facility] Comment on above: Performed By: #### P T #### [facility] [address] [place] [address] Dr. Hugh Landis Epithelial cells LM Ql (Urine sed) FEW Abnormal NONE SEEN /RARE [facility] Comment on above: Performed By: #### P T #### [facility] [address] [place] [address] Dr. Hugh Landis Glucose Ql (U) Negative Normal NEGATIVE [facility] Comment on above: Performed By: #### P T #### [facility] [address] [place] [address] Dr. Hugh Landis Hemoglobin Ql (U) Negative Normal NEGATIVE [facility] Comment on above: Performed By: #### P T #### [facility] [address] [place] [address] Dr. Hugh Landis Ketones Ql (U) TRACE Abnormal NEGATIVE [facility] Comment on above: Performed By: #### P T #### [facility] [address] [place] [address] Dr. Hugh Landis LEUKOCYTES Negative Normal NEGATIVE [facility] Comment on above: Performed By: #### P T #### [facility] [address] [place] [address] Dr. Hugh Landis MUCOUS MODERATE Abnormal NONE SEEN [facility] Comment on above: Performed By: #### P T #### [facility] [address] [place] [address] Dr. Hugh Landis Nitrite Ql (U) Negative Normal NEGATIVE [facility] Comment on above: Performed By: #### P T #### [facility] [address] [place] [address] Dr. Hugh Landis pH (U) 5.0 [pH] Normal 5-9 [facility] Comment on above: Performed By: #### P T #### [facility] [address] [place] [address] Dr. Hugh Landis RBC NONE SEEN Abnormal 0-2 [facility] Comment on above: Performed By: #### P T #### [facility] [address] [place] [address] Dr. Hugh Landis SPEC GRAVITY 1.025 Normal 1.005-<=1.025 [facility] Comment on above: Performed By: #### P T #### [facility] [address] [address] [address] Hugh Landis UA PROTEIN TRACE Normal NEGATIVE/ TRACE [facility] Comment on above: Performed By: #### P T #### [facility] [address] [address] [address] Hugh Landis Urobilinogen Qn (U) 0.2 {Dahiana'U}/dL Normal 0.2 - 1. 0 [facility] Comment on above: Performed By: #### P T #### [facility] [address] [place] [address] Dr. Hugh Landis WBC NONE SEEN Normal NONE SEEN [facility] Comment on above: Performed By: #### P T #### [facility] [address] [place] [address] Dr. Hugh Landis URIC ACID SERUMon 06-11-2022 Urate [Mass/Vol] 7.5 mg/dL Critically high 3.5-7.2 [facility] Comment on above: Performed By: #### P TT #### [facility] [address] [place] [address] Dr. Hugh Landis VITAMIN D 25 OHon 06-11-2022 VIT D 25-OH 35.0 ng/mL Normal [facility] Comment on above: Performed By: #### P T #### [facility] [address] [place] [address] Dr. Hugh Landis VIT D RANGES SEE BELOW Normal [facility] Comment on above: Result Comment: <20 ng/mL Vit D deficient 20 - <30 ng/mL Vit D insufficient 30 - 100 ng/mL Vit D sufficient >100 ng/mL Potential Toxicity Performed By: #### P T #### [facility] [address] [place] [address] Dr. Hugh Landis Follow-Upon 04-18-2022 Follow-Up [id number] Sukhdeep Simental 1965 M Date Provider Department Center 04/18/2022 JASON ALVES MP ORTHO MPORTHO Family History Problem Relation Age of Onset Dementia Mother Esophageal cancer Father Alcohol abuse Father Family Status - Relation Status Age at Mother Alive Father Level of Service:13807 [place] OFFICE/OUTPATIENT ESTABLISHED LOW MDM 20-29 MIN (GC) Reason for Visit and Comments: Follow-up [[id number]] [facility] Office Visiton 04-13-2022 Follow-up visit [id number] Sukhdeep Simental 1965 M Date Provider Department Center 04/13/2022 PAYTON GRIFFITH MP Family History Problem Relation Age of Onset Dementia Mother Esophageal cancer Father Alcohol abuse Father Family Status - Relation Status Age at Mother Alive Father Level of Service:77846 [place] POSTOP FOLLOW UP VISIT RELATED TO ORIGINAL PX (GC) Reason for Visit and Comments: Post-op [483] Pain [136] [facility] 36on 04-04-2022 36 came in receive d copy of FMLA give by keno writer / runner on 04/03/2022. [facility] Letter (Out)on 04-04-2022 Letter (Out) [id number] Sukhdeep Simental 1965 M Date Provider Department Center 04/04/2022 PAYTON GRIFFITH MP Family History Problem Relation Age of Onset Dementia Mother Esophageal cancer Father Alcohol abuse Father Family Status - Relation Status Age at Mother Alive Father [facility] 36on 04-02-2022 36 Patient came in to the office requesting for a copy of patient FMLA paperwork, she states the employer stated that they did not receive the fax. [facility] 3603-30-2022 36 I called and spoke t o [...] follow up on April 13 at 3:00pm [facility] Orders Onlyon 03-30-2022 Orders Only [id number] Sukhdeep Simental 1965 M Date Provider Department Center 03/30/2022 PAYTON GRIFFITH MP ORTHO MPOKATHIA Family History Problem Relation Age of Onset Dementia Mother Esophageal cancer Father Alcohol abuse Father Family Status - Relation Status Age at Mother Alive Father Normal [facility] 30on 03-29-2022 30 The patient is Moderately [...] barriers include , meds as prescribed. Normal [facility] BASIC METABOLIC PANELon Anion gap [Moles/Vol] 8 mmol/L Normal 7-20 [facility] Comment on above: Performed By: #### L [id number] ####[facility] ([facility])[address] [place] [address] Calcium [Mass/Vol] 8.5 mg/dL Low 8.6-10.3 [facility] Comment on above: Performed By: #### L [id number] ####[facility] ([facility])[address] [place] [address] Chloride [Moles/Vol] 106 mmol/L Normal 98-107 [facility] Comment on above: Performed By: #### L [id number] ####[facility] ([facility]ER)[address] [place] [address] CO2 [Moles/Vol] 25 mmol/L Normal 21-31 [facility] Comment on above: Performed By: #### L [id number] ####[facility] ([facility]ER)[address] [place] [address] Creatinine [Mass/Vol] 1.41 mg/dL High 0.70-1.30 [facility] Comment on above: Performed By: #### L [id number] ####[facility] ([facility]ER)[address] [place] [address] GLOMERULAR FILTRATION RATE ML/MIN/1.73 SQ M.PREDICTED 54.5 mL/min/1.73m*2 Low >60.0 [facility] Comment on above: Result Comment: [facility]???s estimated glomerular filtration rate (eGFR) will [...] of individuals. Performed By: #### L [id number] ####[facility] ([facility])[address] [place] [address] Glucose [Mass/Vol] 187 mg/dL High 70-100 [facility] Comment on above: Performed By: #### L [id number] ####[facility] ([facility])[address] [place] [address] Potassium [Moles/Vol] 4.3 mmol/L Normal 3.5-5.1 [facility] Comment on above: Performed By: #### L [id number] ####[facility] ([facility])[address] [place] [address] Sodium [Moles/Vol] 139 mmol/L Normal 136-145 [facility] Comment on above: Performed By: #### L [id number] ####[facility] ([facility])[address] [place] [address] Urea nitrogen [Mass/Vol] 28 mg/dL High 7-25 [facility] Comment on above: Performed By: #### L [id number] ####[facility] ([facility])[address] [place] [address] UREA NITROGEN/CREATININE (MASS RATIO) IN SER/PLAS 19.86 Normal [facility] Comment on above: Performed By: #### L [id number] ####[facility] ([facility])[address] [place] [place] [address] C-REACTIVE PROTEINon 02-02-2 023 C REACTIVE PROTEIN (MG/L) IN SER/PLAS 10.3 mg/L High 0.0-7.0 [facility] Comment on above: Performed By: #### L [id number] ####[facility] ([facility])[address] [address] CBCon 03-29-2022 Erythrocyte distribution width (RBC) [Ratio] 13.3 % Normal 11.5-15.0 [facility] Comment on above: Performed By: #### L [id number] ####[facility] ([facility])[address] [place] [address] ERYTHROCYTE MEAN CORPUSCULAR HEMOGLOBIN CONCENTRATION (G/DL) BY AUTOMATED 34.2 g/dL Normal 32.0-35.0 [facility] Comment on above: Performed By: #### L [id number] ####[facility] ([facility])[address] [place] [address] Hematocrit (Bld) [Volume fraction] 34.8 % Low 39.0-55.0 [facility] Comment on above: Performed By: #### L [id number] ####[facility] ([facility])[address] [place] [address] Hemoglobin (Bld) [Mass/Vol] 11.9 g/dL Low 13.0-17.0 [facility] Comment on above: Performed By: #### L [id number] ####[facility] ([facility])[address] [place] [address] MCH (RBC) [Entitic mass] 30.8 pg Normal 27.0-33.0 [facility] Comment on above: Performed By: #### L [id number] ####[facility] ([facility])[address] [place] [address] MCV (RBC) [Entitic vol] 90.2 fL Normal 82.0-98.0 [facility] Comment on above: Performed By: #### L [id number] ####[facility] ([facility])[address] [place] [address] PLATELETS (10*3/UL) IN BLOOD AUTOMATED COUNT 178 10*3/uL Normal 150-400 [facility] Comment on above: Performed By: #### L [id number] ####[facility] ([facility])[address] [place] [address] RBC (Bld) [#/Vol] 3.86 10*6/uL Low 4.20-5.70 [facility] Comment on above: Performed By: #### L [id number] ####[facility] ([facility])[address] [facility] [place] [address] WBC (Bld) [#/Vol] 10.22 10*3/uL Normal 4.00-10.60 [facility] Comment on above: Performed By: #### L [id number] ####[facility] ([facility])[address] [place] [address] DSon 03-29-2022 DS Admission Admitted 03/28/2022 for [...] hen 5-325 mg tablet Commonly known as: [place] What changed: Another medication with the same name was added. Make sure you understand how and when to take each. HYDROcodone-acetaminop hen 5-325 mg tablet Commonly known as: [place] What changed: You were already taking a [...] Your Medications These medications were sent to [id number] [place] - [address] [facility] [address] [place] [address] doxycycline 100 mg capsule HYDROcodone-acetaminop hen 5-325 mg tablet These medications were sent to [facility] - [place], [place] - [address] [place] [address], [facility] [address] docusate sodium 100 mg capsule enoxaparin 40 [...] (*) POC (more content not included)... Normal [facility] POCT GLUCOSE METER UNSOLICIT ED RESULTSon 03-29-2022 Glucose [Mass/Vol] 186 mg/dL High 70-105 [facility] Comment on above: Result Comment: jay tri2 Performed By: #### L [id number] ####[facility] [place] [address] Glucose [Mass/Vol] 170 mg/dL High 70-105 [facility] Comment on above: Result Comment: [email or web address] tri2 Performed By: #### L [id number] #### [facility] ([facility]) [address] [place] [address] SEDIMENTATION RATEon 023 SEDIMENTATION RATE, ERYTHROCYTE 30 mm/hr High <=10 [facility] Comment on above: Performed By: #### L [id number] ####[facility] [place] [address] 29on 03-28-2022 29 Addendum created 03/28/22 1525 by Dereck Rosales MD Order list changed, Pharmacy for encounter modified Normal [facility] Anesthesiaon 03-28-2022 Anesthesia [id number] Sukhdeep Simental 1965 M Date Provider Department Center 03/28/2022 UMBERTO MACIAS [facility] Family History Problem Relation Age of Onset Dementia Mother Esophageal cancer Father Alcohol abuse Father Family Status - Relation Status Age at Mother Alive Father Normal [facility] BODY FLUID CULTUREon 023 Bacteria identified Cx Nom (Unsp spec) No growth at 5 days Normal [facility] Comment on above: Order Comment: Pre-o p diagnosis: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 [Z86.19, Z98.890] Performed By: #### L [id number] #### [facility] ([facility]) [address] [place] [address] GRAM STAIN RESULT Abnormal [facility] Comment on above: Order Comment: Pre-o p diagnosis: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 [Z86.19, Z98.890] Result Comment: Poly morphonuclear leukocytes No organisms seen Cytocentrifuge sample Performed By: #### L [id number] #### [facility] ([facility]) [address] [place] [address] HISTOLOGY - TISSUE EXAMon LAB AP CASE REPORT Normal [facility] Comment on above: Order Comment: Pre-o p diagnosis: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 [address] LAB AP GROSS DESCRIPTION A. Knee. 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 It consists of 3 bundy-pink pieces of bone and soft tissue measuring 1.9 x 1.0 x 0.6 cm in aggregate. The soft tissue is entirely submitted for frozen analysis. The specimen is submitted entirely as follows: A1: remainder of frozen section A2: remainder of bone (decal) Yash Vela, Pathologists' Convex Grinder Student Guille Sahni, Pathologists' Convex Grinder B. Femur. Part B is received fresh for frozen section labeled Sukhdeep Simental and right femur. It consists of 4 bundy-pink pieces of bone and soft tissue measuring 4.4 x 3.1 x 1.2 cm in aggregate. The soft tissue is entirely submitted for frozen analysis. Editor sections of the specimen are submitted as follows: B1: Remainder of frozen section B2-B4: education courses sales representative of bone (decal) Yash Vela, Pathologists' Convex Grinder Student Guille Sahni, Pathologists' Convex Grinder C. Tibia. Part C is received fresh [...] Remainder of bone (decal) Lamine Melo, Pathologists' Convex Grinder Student Guille Sahni, Pathologists' Convex Grinder D. Patella. Part D is received fresh [...] Remainder of bone (decal) Lamine Melo, Pathologists' Convex Grinder Student Guille Sahni, Pathologists' Convex Grinder Performed By: #### L [id number] ####[facility] ([facility]ER)[address] [place] [address] LAB AP INTRAOPERATIVE CONSULTATION A. Knee. [facility] Comment on above: Order Comment: Pre-o [...] at 1:00 pm Performed By: #### L [id number] ####[facility] ([facility])[address] [place] [address] LAB AP MICROSCOPIC DESCRIPTION Microscopic examination performed. 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 Performed By: #### L [id number] ####[facility] ([facility])[address] [place] [address] HPon 03-28-2022 HP H&P reviewed. The patient was examined and there are no changes to the H&P. [facility] HP History Of Present Illness Sukhdeep Simental is [...] (gastroesophageal reflux disease), Hyperlipidemia, Hyperparathyroidism (CMS/HCC), Hypertension, Kidney stones, Lumbar pain, OA (osteoarthritis), [...] in the morning. Not Taking HYDROcodone-acetaminop hen ([place]) 5-325 mg tablet 1 tablet if needed [...] and behavior. A (more content not included)... [facility] MRSA/MSSA DNA NASALon 2022 MRSA DNA Negative Normal Negative, Invalid [facility] Comment on above: Performed By: #### L [id number] ####[facility] ([facility]ER)[address] [place] [address] MSSA DNA Negative Normal Negative, Invalid [facility] Comment on above: Performed By: #### L [id number] ####[facility] (BEAKER)[address] [place] [address] NURSNOTEon 03-28-2022 [facility] and speak with pt. All questions answered. [facility] NURSNOTE Belongings at [facility], post op x-ray completed. 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] * Infection of prosthetic knee joint, subsequent encounter [T84.59XD, Z96.659] Procedures REVISION, TOTAL ARTHROPLASTY, KNEE, ALL COMPONENTS [id number] - [place] REVJ TOT KNEE ARTHRP FEM&ENTIRE TIBIAL COMPONE [...] MD resident orthopedic surgery #2 Mahad Stubbs senior writer #3 [employer] 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 Bone Cement CEMENT,BONE,R,[id number] - [id number] Implanted Persona Revision Tibial Augment Cemented Implanted Person[employer] Tibia Fixed Cemented Implanted Person[employer] Stem Extension Implanted Person[employer] Femoral Distal Augment Cemented Implanted Person[employer] Stem Extension Implanted Person[employer] Rev[employer] Femoral Distal Augment Cemented Implanted Persona Revision Femur Cemented Implanted Persona Revision Tibial Augment Cemented Implanted Persona Revision Vivacit-E Highly Crosslinked Polyethylene Articular Surface Implanted Staff: Blood Bank Booking Clerk: Corrie Quijano RN Relief Blood Bank Booking Clerk: Ashley Bhatti RN Scrub Person: Karina Gordon CST; Lilia Garcia CST Store Group Manager: Jef Stubbs CSA [employer] Blood Bank Booking Clerk: Sonya Noriega Indications: Sukhdeep Simental is an [...] to diagnose (more content not included)... Normal [facility] POCT GLUCOSE METER UNSOLICIT ED RESULTSon 03-28-2022 Glucose [Mass/Vol] 236 mg/dL High 70-105 [facility] Comment on above: Result Comment: elac umsky Performed By: #### L [id number] ####[facility] (MELODIE)[address] [place] [address] Glucose [Mass/Vol] 185 mg/dL High 70-105 [facility] Comment on above: Result Comment: asor ia3 Performed By: #### L [id number] ####[facility] (BEAKER)[address] [place] [address] Glucose [Mass/Vol] 102 mg/dL Normal 70-105 [facility] Comment on above: Result Comment: [facility] [place] [facility] Performed By: #### L [id number] ####[facility] (SHAUNAKER)[address] [place] [address] POCT SARS-COV-2 PCRon 2022 POC SARS-COV-2 ANTIGEN Negative Normal Negative [facility] Comment on above: Result Comment: ID N OW COVID-19 assay performed on the ID NOW Instrument is a rapid molecular in [...] Certificate of Accreditation. Performed By: #### L [id number] ####[facility] (KAYLENE)[address] [place] [address] TYPE AND SCREENon 03-28-2022 AB SCREEN Negative Normal [facility] Comment on above: Performed By: #### L [id number] ####[facility] BLOOD BANK, ABO group Nom (Bld) A Normal [facility] Comment on above: Performed By: #### L [id number] ####[facility], RH TYPE IN BLOOD Negative Normal [facility] Comment on above: Performed By: #### L [id number] ####[facility], 36on 03-24-2022 36 Spoke with pateint's regarding FMLA forms, she stated she will have the forms faxed again. I spoke with Sukhdeep as well and let him know that he might have to reach out to customer services regarding anything with billing for his brace. Normal [facility] Orders Onlyon 03-23-2022 Orders Only [id number] Sukhdeep Simental 1965 M Date Provider Department Center 03/23/2022 TonyDevinSoniyaDANAY JENNY [facility] PAT [place] [facility] C Family History Problem Relation Age of Onset Dementia Mother Esophageal cancer Father Alcohol abuse Father Family Status - Relation Status Age at Mother Alive Father Normal [facility] PROTIMEon 03-15-2022 INR Coag (PPP) [Relative time] 1.11 {INR} Normal [facility] Comment on above: Performed By: #### P T #### [facility] [address] [place] [address] Dr. Hugh Landis INR GUIDELINES SEE BELOW Normal [facility] Comment on above: Result Comment: VIC RED INR: 2.0 - 3.0 CONDITIONS NOT LISTED BELOW 2.5 - 3.5 FOR PROSTHETIC HEART VALVE REPLACEMENT 2.5 - 3.5 RECURRENT THROMBOSIS Performed By: #### P T #### [facility] [address] [place] [address] Dr. Hugh Landis PT Coag (PPP) [Time] 11.7 s Critically high 9.0-11.6 [facility] Comment on above: Performed By: #### P T #### [facility] [address] [place] [address] Dr. Hugh Landis UA (CLEAN/CATCH) CNC PROGRAMMER/MICRO I F IND.on 03-15-2022 Bilirubin Ql (U) Negative Normal NEGATIVE [facility] Comment on above: Performed By: #### P TT #### [facility] [address] [place] [address] Dr. Hugh Landis Clarity (U) CLEAR Normal CLEAR [facility] Comment on above: Performed By: #### P TT #### [facility] [address] [place] [address] Dr. Hugh Landis Color (U) YELLOW Normal YELLOW [facility] Comment on above: Performed By: #### P TT #### [facility] [address] [place] [address] Dr. Hugh Landis Glucose Ql (U) Negative Normal NEGATIVE [facility] Comment on above: Performed By: #### P TT #### [facility] [address] [address] [address] Hugh Landis Hemoglobin Ql (U) SMALL Abnormal NEGATIVE [facility] Comment on above: Performed By: #### P TT #### [facility] [address] [place] [address] Dr. Hugh Landis Ketones Ql (U) Negative Normal NEGATIVE [facility] Comment on above: Performed By: #### P TT #### [facility] [address] [place] [address] Dr. Hugh Landis LEUKOCYTES Negative Normal NEGATIVE [facility] Comment on above: Performed By: #### P TT #### [facility] [address] [place] [address] Dr. Hugh Landis Nitrite Ql (U) Negative Normal NEGATIVE [facility] Comment on above: Performed By: #### P TT #### [facility] [address] [place] [address] Dr. Hugh Landis pH (U) 5.5 [pH] Normal 5-9 [facility] Comment on above: Performed By: #### P TT #### [facility] [address] [place] [address] Dr. Hugh Landis SPEC GRAVITY 1.025 Normal 1.005-<=1.025 [facility] Comment on above: Performed By: #### P TT #### [facility] [address] [place] [address] Dr. Hugh Landis UA PROTEIN Negative Normal NEGATIVE/ TRACE [facility] Comment on above: Performed By: #### P TT #### [facility] [address] [place] [address] Dr. Hugh Landis UR MICRO IND INDICATED Normal [facility] Comment on above: Performed By: #### P TT #### [facility] [address] [place] [address] Dr. Hugh Landis Urobilinogen Qn (U) 0.2 {Dahiana'U}/dL Normal 0.2 - 1. 0 [facility] Comment on above: Performed By: #### P TT #### [facility] [address] [place] [address] Dr. Hugh Landis URINE MICROSCOPIC ONLYon BACTERIA TRACE Abnormal NONE SEEN [facility] Comment on above: Performed By: #### P TT #### [facility] [address] [place] [address] Dr. Hugh Landis Bacteria identified Cx Nom (U) NOT INDICATED Normal [facility] Comment on above: Performed By: #### P TT #### [facility] [address] [place] [address] Dr. Hugh Landis CAST NONE SEEN Normal NONE SEEN [facility] Comment on above: Performed By: #### P TT #### [facility] [address] [place] [address] Dr. Hugh Landis Crystals LM Nom (Urine sed) NONE SEEN Normal NONE SEEN [facility] Comment on above: Performed By: #### P TT #### [facility] [address] [place] [address] Dr. Hugh Landis Epithelial cells LM Ql (Urine sed) RARE Normal NONE SEEN /RARE [facility] Comment on above: Performed By: #### P TT #### [facility] [address] [place] [address] Dr. Hugh Landis MUCOUS NONE SEEN Normal NONE SEEN [facility] Comment on above: Performed By: #### P TT #### [facility] [address] [place] [address] Dr. Hugh Landis RBC 0-2 Normal 0-2 [facility] Comment on above: Performed By: #### P TT #### [facility] [address] [place] [address] Dr. Hugh Landis WBC 0-2 Abnormal NONE SEEN [facility] Comment on above: Performed By: #### P TT #### [facility] [address] [place] [address] Dr. Hugh Landis [id number] 03-13-2022 [id number] NPO after [place] Must have a driver helper to take you home and someone to stay for 24 hours after surgery. No jewelry. Hold the meds we spoke about: NSAIDS Take the meds we spoke about w/a sip of water DOS: PRILOSEC CARDURA TAMSULOSIN AND OXY AND ATIVAN PRN Bring insurance card and ID. [facility] 36on 03-13-2022 36 I called and spoke [...] to do physical therapy, he would like [facility]. [facility] Orders Onlyon 03-13-2022 Orders Only [id number] Sukhdeep Simental 1965 M Date Provider Department Center 03/13/2022 ROYER MICHAUD [facility] Family History Problem Relation Age of Onset Dementia Mother Esophageal cancer Father Alcohol abuse Father Family Status - Relation Status Age at Mother Alive Father [facility] Telephoneon 03-13-2022 Telephone [id number] KamaljitSukhdeep 1965 M Date Provider Department Center 03/13/2022 BLADIMIR ROSE MP ORTHO MPORTHO Family History Problem Relation Age of Onset Dementia Mother Esophageal cancer Father Alcohol abuse Father Family Status - Relation Status Age at Mother Alive Father [facility] MRSA NARES #1on 03-08-2022 MRSA NARES #1 Culture Observations : NO GROWTH OF MRSA AT 48 HOURS. [facility] Comment on above: Performed By: #### B MP #### [facility] [address] [address] [address] Hugh Landis PROF CHEM 8 (BAS METB)on Anion gap [Moles/Vol] 9.9 mmol/L [facility] Comment on above: Performed By: #### C MP, LIPID, TSH #### [facility] [address] [address] [address] Hugh Landis Calcium [Mass/Vol] 9.4 mg/dL Normal 8.5-10.1 [facility] Comment on above: Performed By: #### C MP, LIPID, TSH #### [facility] [address] [address] [address] Hugh Landis Chloride [Moles/Vol] 103 mmol/L Normal 98-107 [facility] Comment on above: Performed By: #### C MP, LIPID, TSH #### [facility] [address] [address] [address] Hugh Landis CO2 [Moles/Vol] 31.6 mmol/L Normal 21.0-32.0 [facility] Comment on above: Performed By: #### C MP, LIPID, TSH #### [facility] [address] [place] [address] Dr. Hugh Landis Creatinine [Mass/Vol] 1.25 mg/dL Normal 0.70-1.30 [facility] Comment on above: Performed By: #### C MP, LIPID, TSH #### [facility] [address] [address] [address] Hugh Landis EGFR-AF [place] >60 Normal >=60 [facility] Comment on above: Performed By: #### C MP, LIPID, TSH #### [facility] [address] [address] [address] Hugh Landis EGFR-NON AF [place] 59 mL/min/1.73m2 Critically low >=60 [facility] Comment on above: Performed By: #### C MP, LIPID, TSH #### [facility] [address] [address] [address] Hugh Landis Glucose [Mass/Vol] 110 mg/dL Critically high 74-106 [facility] Comment on above: Performed By: #### C MP, LIPID, TSH #### [facility] [address] [address] [address] Hugh Landis Potassium [Moles/Vol] 3.5 mmol/L Normal 3.5-5.1 [facility] Comment on above: Performed By: #### C MP, LIPID, TSH #### [facility] [address] [address] [address] Hugh Landis Sodium [Moles/Vol] 141 mmol/L Normal 136-145 [facility] Comment on above: Performed By: #### C MP, LIPID, TSH #### [facility] [address] [address] [address] Hugh Landis Urea nitrogen [Mass/Vol] 27.0 mg/dL Critically high 7.0-18.0 [facility] Comment on above: Performed By: #### C MP, LIPID, TSH #### [facility] [address] [address] [address] Hugh Landis Urea nitrogen/Creatinine [Mass ratio] 21.6 mg/mg Normal [facility] Comment on above: Performed By: #### C MP, LIPID, TSH #### [facility] [address] [place] [address] Dr. Hugh Landis PTTon 03-08-2022 aPTT Coag (Bld) [Time] 27.0 s Normal 22.3-36.2 [facility] Comment on above: Performed By: #### P TT #### [facility] [address] [place] [address] Dr. Hugh Landis Letter (Out)on 03-07-2022 Letter (Out) [id number] Sukhdeep Simental 1965 M Date Provider Department Center 03/07/2022 None-None [facility] AUTH [place] Medical C Family History Problem Relation Age of Onset Dementia Mother Esophageal cancer Father Alcohol abuse Father Family Status - Relation Status Age at Mother Alive Father Normal [facility] 29on 02-23-2022 29 Addended by: JACOB MCKEE on: 03/07/2022 11:52 AM Modules accepted: Orders, SmartSet Normal [facility] C-REACTIVE PROTEINon 022 C REACTIVE PROTEIN (MG/L) IN SER/PLAS 24.6 mg/L High 0.0-7.0 [facility] Comment on above: Performed By: #### L [id number] #### [facility] (BEAKER) [address] [place] [address] CBC WITH AUTO DIFFERENTIALon 02-23-2022 Basophils (Bld) [#/Vol] 0.02 10*3/uL Normal 0.00-0.20 [facility] Comment on above: Performed By: #### L [id number] ####[facility] (BEAKER)[address] [place] [address] Basophils/100 WBC (Bld) 0.4 % Normal 0.0-1.0 [facility] Comment on above: Performed By: #### L [id number] ####[facility] [place] [address] Eosinophils (Bld) [#/Vol] 0.16 10*3/uL Normal 0.00-0.50 [facility] Comment on above: Performed By: #### L [id number] ####[facility] [place] [address] Eosinophils/100 WBC (Bld) 2.8 % Normal 0.0-6.0 [facility] Comment on above: Performed By: #### L [id number] ####[facility] [place] [address] Erythrocyte distribution width (RBC) [Ratio] 12.6 % Normal 11.5-15.0 [facility] Comment on above: Performed By: #### L [id number] ####[facility] [place] [address] ERYTHROCYTE MEAN CORPUSCULAR HEMOGLOBIN CONCENTRATION (G/DL) BY AUTOMATED 32.1 g/dL Normal 32.0-35.0 [facility] Comment on above: Performed By: #### L [id number] ####[facility] (BEAKER)[address] [place] [address] Hematocrit (Bld) [Volume fraction] 40.5 % Normal 39.0-55.0 [facility] Comment on above: Performed By: #### L [id number] ####[facility] (BEAKER)[address] [place] [address] Hemoglobin (Bld) [Mass/Vol] 13.0 g/dL Normal 13.0-17.0 [facility] Comment on above: Performed By: #### L [id number] ####[facility] (BEAKER)[address] [place] [address] Immature granulocytes (Bld) [#/Vol] 0.01 10*3/uL Normal 0.00-0.20 [facility] Comment on above: Performed By: #### L [id number] ####[facility] (BEAKER)[address] [place] [address] Immature granulocytes/100 WBC (Bld) 0.2 % Normal 0.0-1.0 [facility] Comment on above: Performed By: #### L [id number] ####[facility] (BEAKER)[address] [place] [address] Lymphocytes (Bld) [#/Vol] 1.05 10*3/uL Low 1.20-4.00 [facility] Comment on above: Performed By: #### L [id number] ####[facility] (BEAKER)[address] [place] [address] Lymphocytes/100 WBC (Bld) 18.4 % Low 20.0-45.0 [facility] Comment on above: Performed By: #### L [id number] ####[facility] (BEAKER)[address] [place] [address] MCH (RBC) [Entitic mass] 29.3 pg Normal 27.0-33.0 [facility] Comment on above: Performed By: #### L [id number] ####[facility] (BEAKER)[address] [place] [address] MCV (RBC) [Entitic vol] 91.2 fL Normal 82.0-98.0 [facility] Comment on above: Performed By: #### L [id number] ####[facility] (BEAKER)[address] [place] [address] Monocytes (Bld) [#/Vol] 0.82 10*3/uL Normal 0.10-1.00 [facility] Comment on above: Performed By: #### L [id number] ####[facility] ([facility])[address] [place] [address] Monocytes/100 WBC (Bld) 14.4 % High 5.0-12.0 [facility] Comment on above: Performed By: #### L [id number] ####[facility] ([facility])[address] [place] [address] Neutrophils (Bld) [#/Vol] 3.65 10*3/uL Normal 1.60-7.60 [facility] Comment on above: Performed By: #### L [id number] ####[facility] ([facility])[address] [place] [address] Neutrophils/100 WBC (Bld) 63.8 % Normal 40.0-72.0 [facility] Comment on above: Performed By: #### L [id number] ####[facility] ([facility])[address] [place] [address] NRBC (PER 100 WBCS) BY AUTOMATED COUNT 0.0 % Normal 0.0-0.0 [facility] Comment on above: Performed By: #### L [id number] ####[facility] ([facility])[address] [place] [address] PLATELETS (10*3/UL) IN BLOOD AUTOMATED COUNT 210 10*3/uL Normal 150-400 [facility] Comment on above: Performed By: #### L [id number] ####[facility] ([facility])[address] [place] [address] RBC (Bld) [#/Vol] 4.44 10*6/uL Normal 4.20-5.70 [facility] Comment on above: Performed By: #### L [id number] ####[facility] ([facility])[address] [place] [address] WBC (Bld) [#/Vol] 5.71 10*3/uL Normal 4.00-10.60 [facility] Comment on above: Performed By: #### L [id number] ####[facility] ([facility])[address] [place] [address] Follow-Upon 02-23-2022 Follow-Up [id number] Sukhdeep Simental 1965 M Date Provider Department Center 02/23/2022 433-[place] [facility] MP ORTHO MPORTHO Family History Problem Relation Age of Onset Dementia Mother Esophageal cancer Father Alcohol abuse Father Family Status - Relation Status Age at Mother Alive Father Level of Service:39292 [place] OFFICE/OUTPATIENT ESTABLISHED MOD MDM 30-39 MIN () Reason for Visit and Comments: Pain [136] Normal [facility] Labon 02-23-2022 Lab [id number] Sukhdeep Simental 1965 M Date Provider Department Center 02/23/2022 2244-[facility] MP LAB RESOURCE MP DRAW Medical Pavi Family History Problem Relation Age of Onset Dementia Mother Esophageal cancer Father Alcohol abuse Father Family Status - Relation Status Age at Mother Alive Father Normal [facility] SEDIMENTATION RATEon 022 SEDIMENTATION RATE, ERYTHROCYTE 39 mm/hr High <=10 [facility] Comment on above: Performed By: #### L [id number] ####[facility] ([facility])[address] [place] [address] INSULINon 01-25-2022 Insulin 11.1 uIU/mL Normal 2.6-24.9 [facility] Comment on above: Performed By: #### U TOMAS, TSH, CMP, LIPID, T7 #### [facility] [address] [address] [address] Hugh Landis CBC AUTO DIFFon 01-24-2022 BASO # 0.1 103/ul Normal 0.0-0.1 [facility] Comment on above: Performed By: #### C MP, LIPID, TSH #### [facility] [address] [place] [address] Dr. Hugh Landis Basophils/100 WBC (Bld) 1.3 % Normal 0.2-2.0 [facility] Comment on above: Performed By: #### C MP, LIPID, TSH #### [facility] [address] [place] [address] Dr. uHgh Landis EO # 0.2 103/ul Normal 0.0-0.7 [facility] Comment on above: Performed By: #### C MP, LIPID, TSH #### [facility] [address] [place] [address] Dr. Hugh Landis Eosinophils/100 WBC (Bld) 4.7 % Normal 0.9-7.0 [facility] Comment on above: Performed By: #### C MP, LIPID, TSH #### [facility] [address] [place] [address] Dr. Hugh Landis Erythrocyte distribution width (RBC) [Ratio] 12.6 % Normal 11.0-15.0 [facility] Comment on above: Performed By: #### C MP, LIPID, TSH #### [facility] [address] [place] [address] Dr. Hugh Landis Hematocrit (Bld) [Volume fraction] 39.1 % Critically low 42.0-54.0 [facility] Comment on above: Performed By: #### C MP, LIPID, TSH #### [facility] [address] [place] [address] Dr. Hugh Landis Hemoglobin (Bld) [Mass/Vol] 12.4 g/dL Critically low 14.0-18.0 [facility] Comment on above: Performed By: #### C MP, LIPID, TSH #### [facility] [address] [place] [address] Dr. Hugh Landis IG # 0.01 10e3/ul Normal 0.00-0.03 [facility] Comment on above: Performed By: #### C MP, LIPID, TSH #### [facility] [address] [place] [address] Dr. Hugh Landis IG % 0.2 % Normal 0.0-0.5 [facility] Comment on above: Performed By: #### C MP, LIPID, TSH #### [facility] [address] [place] [address] Dr. Hugh Landis LYMPH # 0.9 103/ul Critically low 1.2-3.8 [facility] Comment on above: Performed By: #### C MP, LIPID, TSH #### [facility] [address] [place] [address] Dr. Hugh Landis Lymphocytes/100 WBC (Bld) 19.4 % Critically low 20.5-60.0 [facility] Comment on above: Performed By: #### C MP, LIPID, TSH #### [facility] [address] [place] [address] Dr. Hugh Landis MANUAL DIFF REQ NO Normal [facility] Comment on above: Performed By: #### C MP, LIPID, TSH #### [facility] [address] [place] [address] Dr. Hugh Landis MCH (RBC) [Entitic mass] 29.2 pg Normal 25.9-34.0 [facility] Comment on above: Performed By: #### C MP, LIPID, TSH #### [facility] [address] [place] [address] Dr. Hugh Landis MCHC (RBC) [Mass/Vol] 31.7 g/dL Normal 29.9-35.2 [facility] Comment on above: Performed By: #### C MP, LIPID, TSH #### [facility] [address] [place] [address] Dr. Hugh Landis MCV (RBC) [Entitic vol] 92.0 fL Normal 80.0-94.0 [facility] Comment on above: Performed By: #### C MP, LIPID, TSH #### [facility] [address] [place] [address] Dr. Hugh Landis MONO # 0.5 103/ul Normal 0.3-0.8 [facility] Comment on above: Performed By: #### C MP, LIPID, TSH #### [facility] [address] [place] [address] Dr. Hugh Landis Monocytes/100 WBC (Bld) 9.6 % Normal 1.7-12.0 [facility] Comment on above: Performed By: #### C MP, LIPID, TSH #### [facility] [address] [place], [place] [id number] Dr. Hugh Landis NEUT # 3.0 103/ul Normal 1.4-6.5 [facility] [facility] Comment on above: Performed By: #### C MP, LIPID, TSH #### [facility] [address] [place] [address] Dr. Hugh Landis Neutrophils/100 WBC (Bld) 64.8 % Normal 43.0-75.0 [facility] Comment on above: Performed By: #### C MP, LIPID, TSH #### [facility] [address] [place] [address] Dr. Hugh Landis Platelet mean volume (Bld) [Entitic vol] 9.4 fL Critically low 9.5-13.5 [facility] Comment on above: Performed By: #### C MP, LIPID, TSH #### [facility] [address] [place] [address] Dr. Hugh Landis PLT 232 103/ul Normal 150-450 [facility] Comment on above: Performed By: #### C MP, LIPID, TSH #### [facility] [address] [place] [address] Dr. Hugh Landis RBC 4.25 106/ul Critically low 4.70-6.10 [facility] Comment on above: Performed By: #### C MP, LIPID, TSH #### [facility] [address] [place] [address] Dr. Hugh Landis WBC 4.7 103/ul Normal 4.0-11.0 [facility] Comment on above: Performed By: #### C MP, LIPID, TSH #### [facility] [address] [place] [address] Dr. Hugh Landis FREE THYROXINE INDEX T7on FTI 2.65 Normal 1.30-4.50 [facility] Comment on above: Performed By: #### B MP #### [facility] [address] [place] [address] Dr. Hugh Landis T3U 34.0 % Normal 33.0-40.0 [facility] Comment on above: Performed By: #### B MP #### [facility] [address] [address] [address] Hugh Landis T4 [Mass/Vol] 7.80 ug/dL Normal 4.50-12.10 [facility] Comment on above: Performed By: #### B MP #### [facility] [address] [address] [address] Hugh Landis GLYCOHEMOGLOBIN A1Con 2021 ADA RECOMMENDATION SEE BELOW Normal [facility] Comment on above: Result Comment: ADA RECOMMENDED LIMIT 4.0 - 6.0 ADA THERAPEUTIC TARGET < 7.0 ACTION SUGGESTED > 7.0 Performed By: #### C MP, LIPID, TSH #### [facility] [address] [address] [address] Hugh Landis Glucose [Mass/Vol] 123 mg/dL Normal [facility] Comment on above: Performed By: #### C MP, LIPID, TSH #### [facility] [address] [address] [address] Hugh Landis HbA1c (Bld) [Mass fraction] 5.9 % Normal 4.5-6.2 [facility] Comment on above: Performed By: #### C MP, LIPID, TSH #### [facility] [address] [address] [address] Hugh Landis LIPID PROFILEon 01-24-2022 CHOL-HDL RATIO NORM SEE BELOW Normal [facility] Comment on above: Result Comment: 3.3 - 4.4 LOW RISK 4.4 - 7.1 AVERAGE RISK 7.1 - 11.0 MODERATE RISK >11.0 HIGH RISK Performed By: #### U TOMAS, TSH, CMP, LIPID, T7 #### [facility] [address] [address] [address] Hugh Landis Cholesterol [Mass/Vol] 179 mg/dL Normal <=200 [facility] Comment on above: Performed By: #### U TOMAS, TSH, CMP, LIPID, T7 #### [facility] [address] [address] [address] Hugh Landis Cholesterol in HDL [Mass/Vol] 46 mg/dL Normal 40-60 [facility] Comment on above: Performed By: #### U TOMAS, TSH, CMP, LIPID, T7 #### [facility] [address] [place], [place] [address] Dr. Hugh Landis Cholesterol in LDL [Mass/Vol] 100.4 mg/dL Normal [facility] Comment on above: Performed By: #### U TOMAS, TSH, CMP, LIPID, T7 #### [facility] [address] [address] [address] Hugh Landis Cholesterol.total/C holesterol in HDL [Mass ratio] 3.9 {ratio} Normal [facility] Comment on above: Performed By: #### U TOMAS, TSH, CMP, LIPID, T7 #### [facility] [address] [address] [address] Hugh Landis HDL NORMAL > or = 60 mg/dl - LO W CARDIOVASCULAR RISK <40 mg/dl - HIGH CARDIOVASCULAR RISK Normal [facility] Comment on above: Performed By: #### U TOMAS, TSH, CMP, LIPID, T7 #### [facility] [address] [address] [address] Hugh Landis LDL CALC NORMAL SEE BELOW Normal [facility] Comment on above: Result Comment: <100 mg/dl OPTIMAL 100 - 129 mg/dl NEAR OR ABOVE OPTIMAL 130 - 159 mg/dl BORDERLINE HIGH 160 - 189 mg/dl HIGH >190 mg/dl VERY HIGH Performed By: #### U TOMAS, TSH, CMP, LIPID, T7 #### [facility] [address] [address] [address] Hugh Landis Triglyceride [Mass/Vol] 163 mg/dL Critically high <=150 [facility] Comment on above: Performed By: #### U TOMAS, TSH, CMP, LIPID, T7 #### [facility] [address] [address] [address] Hugh Landis VLDL CALC 32.6 mg/dL Normal [facility] Comment on above: Performed By: #### U TOMAS, TSH, CMP, LIPID, T7 #### [facility] [address] [address] [address] Hugh Landis PROF 14(COMP METB)on 022 Albumin [Mass/Vol] 3.6 g/dL Normal 3.4-5.0 [facility] Comment on above: Performed By: #### U TOMAS, TSH, CMP, LIPID, T7 #### [facility] [address] [place] [address] Dr. Hugh Landis Albumin/Globulin [Mass ratio] 0.9 {ratio} Normal [facility] Comment on above: Performed By: #### U TOMAS, TSH, CMP, LIPID, T7 #### [facility] [address] [place] [address] Dr. Hugh Landis ALP [Catalytic activity/Vol] 81 U/L Normal 46-116 [facility] Comment on above: Performed By: #### U TOMAS, TSH, CMP, LIPID, T7 #### [facility] [address] [place] [address] Dr. Hugh Landis ALT [Catalytic activity/Vol] 19 U/L Normal 16-63 [facility] Comment on above: Performed By: #### U TOMAS, TSH, CMP, LIPID, T7 #### [facility] [address] [place] [address] Dr. Hugh Landis Anion gap [Moles/Vol] 13.4 mmol/L Normal [facility] Comment on above: Performed By: #### U TOMAS, TSH, CMP, LIPID, T7 #### [facility] [address] [place] [address] Dr. Hugh Landis AST [Catalytic activity/Vol] 16 U/L Normal 15-37 [facility] Comment on above: Performed By: #### U TOMAS, TSH, CMP, LIPID, T7 #### [facility] [address] [place] [address] Dr. Hugh Landis Bilirubin [Mass/Vol] 0.5 mg/dL Normal 0.2-1.0 [facility] Comment on above: Performed By: #### U TOMAS, TSH, CMP, LIPID, T7 #### [facility] [address] [place] [address] Dr. Hugh Landis Calcium [Mass/Vol] 9.7 mg/dL Normal 8.5-10.1 [facility] Comment on above: Performed By: #### U TOMAS, TSH, CMP, LIPID, T7 #### [facility] [address] [address] [address] Hugh Landis Chloride [Moles/Vol] 105 mmol/L Normal 98-107 [facility] Comment on above: Performed By: #### U TOMAS, TSH, CMP, LIPID, T7 #### [facility] [address] [place] [address] Dr. Hugh Landis CO2 [Moles/Vol] 27.4 mmol/L Normal 21.0-32.0 [facility] Comment on above: Performed By: #### U TOMAS, TSH, CMP, LIPID, T7 #### [facility] [address] [address] [address] Hugh Landis Creatinine [Mass/Vol] 1.37 mg/dL Critically high 0.70-1.30 [facility] Comment on above: Performed By: #### U TOMAS, TSH, CMP, LIPID, T7 #### [facility] [address] [place] [address] Dr. Hugh Landis EGFR-AF [place] >60 Normal >=60 [facility] Comment on above: Performed By: #### U TOMAS, TSH, CMP, LIPID, T7 #### [facility] [address] [place] [address] Dr. Hugh Landis EGFR-NON AF [place] 53 mL/min/1.73m2 Critically low >=60 [facility] Comment on above: Performed By: #### U TOMAS, TSH, CMP, LIPID, T7 #### [facility] [address] [address] [address] Hugh Landis Globulin (S) [Mass/Vol] 4.0 g/dL Normal [facility] Comment on above: Performed By: #### U TOMAS, TSH, CMP, LIPID, T7 #### [facility] [address] [place] [address] Dr. Hugh Landis Glucose [Mass/Vol] 113 mg/dL Critically high 74-106 T [facility] Comment on above: Performed By: #### U TOMAS, TSH, CMP, LIPID, T7 #### [facility] [address] [place] [address] Dr. Hugh Landis Potassium [Moles/Vol] 3.8 mmol/L Normal 3.5-5.1 [facility] Comment on above: Performed By: #### U TOMAS, TSH, CMP, LIPID, T7 #### [facility] [address] [address] [address] Hugh Landis Protein [Mass/Vol] 7.6 g/dL Normal 6.4-8.2 [facility] Comment on above: Performed By: #### U TOMAS, TSH, CMP, LIPID, T7 #### [facility] [address] [address] [address] Hugh Landis Sodium [Moles/Vol] 142 mmol/L Normal 136-145 [facility] Comment on above: Performed By: #### U TOMAS, TSH, CMP, LIPID, T7 #### [facility] [address] [place] [address] Dr. Hugh Landis Urea nitrogen [Mass/Vol] 21.0 mg/dL Critically high 7.0-18.0 [facility] Comment on above: Performed By: #### U TOMAS, TSH, CMP, LIPID, T7 #### [facility] [address] [address] [address] Hugh Landis Urea nitrogen/Creatinine [Mass ratio] 15.3 mg/mg Normal [facility] Comment on above: Performed By: #### U TOMAS, TSH, CMP, LIPID, T7 #### [facility] [address] [place] [address] Dr. Hugh Landis TSHon 01-24-2022 TSH 0.663 uIU/mL Normal 0.358-3.740 [facility] Comment on above: Performed By: #### U TOMAS, TSH, CMP, LIPID, T7 #### [facility] [address] [place] [address] Dr. Hugh Landis URIC ACID SERUMon 01-24-2022 Urate [Mass/Vol] 6.9 mg/dL Normal 3.5-7.2 [facility] Comment on above: Performed By: #### B MP #### [facility] [address] [place] [address] Dr. Hugh Landis VITAMIN D 25 OHon 01-24-2022 VIT D 25-OH 37.0 ng/mL Normal [facility] Comment on above: Performed By: #### P TT #### [facility] [address] [address] [address] Hugh Landis VIT D RANGES SEE BELOW Normal [facility] Comment on above: Result Comment: <20 ng/mL Vit D deficient 20 - <30 ng/mL Vit D insufficient 30 - 100 ng/mL Vit D sufficient >100 ng/mL Potential Toxicity Performed By: #### P TT #### [facility] [address] [address] [address] Hugh Landis 36on 01-22-2022 36 Called patient's wif e to discuss her FMLA forms no answer left detailed message. I will discuss a continus leave with Dr. Helm on 01/24/22 forms will then be updated based on his decision, the interment leave was requested from patient directly! Any changes made now will be based on Dr. Helm's discretion. Normal [facility] Office Visiton 01-17-2022 Follow-up visit [id number] Sukhdeep Simental 1965 M Date Provider Department Center 01/17/2022 NATHALY ADAMS [facility] Family History Problem Relation Age of Onset Dementia Mother Esophageal cancer Father Alcohol abuse Father Family Status - Relation Status Age at Mother Alive Father Level of Service:75756 [place] PHYS/QHP TELEPHONE EVALUATION 11-20 MIN Reason for Visit and Comments: Infection in right knee [Other] Normal [facility] Office Visiton 01-12-2022 Follow-up visit [id number] SimentalSukhdeep F 1965 M Date Provider Department Center 01/12/2022 PAYTON GRIFFITH MP ORTHO MPORTHO Family History Problem Relation Age of Onset Dementia Mother Esophageal cancer Father Alcohol abuse Father Family Status - Relation Status Age at Mother Alive Father Level of Service:49585 [place] POSTOP FOLLOW UP VISIT RELATED TO ORIGINAL PX (GC) Reason for Visit and Comments: Follow-up [274899] Pain [136] [facility] 01-11-2022 36 Jacob from ortho calling as pt concerned because [facility] where he is receiving his dalbavancin commented that the 1500 mg usually given only x 1. I reinforced that I spoke directly to Dr Richter and this x 2 was confirmed for his out pt infusions [facility] 01-09-2022 36 Clarified with Day myers -Dalbavancin dose 1500 mg x 2 one week apart. [facility] 01-04-2022 36 Confirmed with pt an d made f/up he is going back for 2nd dalba 01/09 [facility] 3001-02-2022 30 The patient is Moderately Stable - Low risk of patient condition declining or worsening The patient's goals for the shift include comfort The clinical goals for the shift include potential discharge Over the shift, the patient did not make progress toward the following goals. Barriers to progression include n/a. Recommendations to address these barriers include n/a. [facility] BASIC METABOLIC PANELon 11 Anion gap [Moles/Vol] 4 mmol/L Low 7-20 [facility] Comment on above: Performed By: #### L [id number] ####[facility] ([facility])[address] [place] [address] Calcium [Mass/Vol] 8.9 mg/dL Normal 8.6-10.3 [facility] Comment on above: Performed By: #### L [id number] ####[facility] ([facility])[address] [place] [address] Chloride [Moles/Vol] 107 mmol/L Normal 98-107 [facility] Comment on above: Performed By: #### L [id number] ####[facility] ([facility])[address] [place] [address] CO2 [Moles/Vol] 30 mmol/L Normal 21-31 [facility] Comment on above: Performed By: #### L [id number] ####[facility] ([facility])[address] [place] [address] Creatinine [Mass/Vol] 1.23 mg/dL Normal 0.70-1.30 [facility] Comment on above: Performed By: #### L [id number] ####[facility] ([facility])[address] [place] [address] GLOMERULAR FILTRATION RATE ML/MIN/1.73 SQ M.PREDICTED 64.3 mL/min/1.73m*2 Normal >60.0 [facility] Comment on above: Result Comment: The [facility]???s estimated glomerular filtration rate (eGFR) will [...] of individuals. Performed By: #### L [id number] ####[facility] ([facility])[address] [place] [address] Glucose [Mass/Vol] 102 mg/dL High 70-100 [facility] Comment on above: Performed By: #### L [id number] ####[facility] ([facility])[address] [place] [address] Potassium [Moles/Vol] 4.4 mmol/L Normal 3.5-5.1 [facility] Comment on above: Performed By: #### L [id number] ####[facility] ([facility])[address] [place] [address] Sodium [Moles/Vol] 141 mmol/L Normal 136-145 [facility] Comment on above: Performed By: #### L [id number] ####[facility] ([facility])[address] [place] [place] [address] Urea nitrogen [Mass/Vol] 12 mg/dL Normal 7-25 [facility] Comment on above: Performed By: #### L [id number] ####[facility] ([facility])[address] [place] [address] UREA NITROGEN/CREATININE (MASS RATIO) IN SER/PLAS 9.76 Normal [facility] Comment on above: Performed By: #### L [id number] ####[facility] ([place])[address] [address] DSon 01-02-2022 DS Admission Admitted 12/27/2021 for Chronic instability of right knee Discharge Diagnosis Right knee periprosthetic infection. Discharge Disposition Home-Health Care [facility] Discharge Medications Your medication list START taking [...] hen 5-325 mg tablet Commonly known as: [place] ASK your doctor about these medications Instructions Last Dose Given Next Dose Due dalbavancin 500 mg injection Commonly known as: [place] Ask about: Should I take this medication? [...] 4.4 C (more content not included)... Normal [facility] Orders Onlyon 01-02-2022 Orders Only [id number] Sukhdeep Simental F 1965 M Date Provider Department Center 01/02/2022 1883-NADIRA AHN [facility] 2A Second Fl Family History Problem Relation Age of Onset Dementia Mother Esophageal cancer Father Alcohol abuse Father Family Status - Relation Status Age at Mother Alive Father Normal [facility] Orders Only [id number] Sukhdeep Simental F 1965 M Date Provider Department Center 01/02/2022 1973-GRACIELA CASTAÑEDA [facility] 2A Second Fl Family History Problem Relation Age of Onset Dementia Mother Esophageal cancer Father Alcohol abuse Father Family Status - Relation Status Age at Mother Alive Father Normal [facility] POCT GLUCOSE METER UNSOLICIT ED RESULTSon 01-02-2022 Glucose [Mass/Vol] 139 mg/dL High 70-105 [facility] Comment on above: Result Comment: [email or web address] Performed By: #### L [id number] ####[facility] ([facility])[address] [place] [address] Glucose [Mass/Vol] 101 mg/dL Normal 70-105 [facility] Comment on above: Result Comment: [email or web address] [email or web address] Performed By: #### L [id number] ####[facility] ([facility])[address] [place] [address] VANCOMYCIN, PEAKon 2 VANCOMYCIN (UG/ML) IN SER/PLAS - PEAK 13.0 ug/mL Low 20.0-50.0 [facility] Comment on above: Performed By: #### L [id number] ####[facility] ([facility])[address] [place] [address] VANCOMYCIN, TROUGHon 022 VANCOMYCIN (UG/ML) IN SER/PLAS - TROUGH 10.5 ug/mL Normal 5.0-20.0 [facility] Comment on above: Performed By: #### L [id number] #### [facility] ([facility]) [address] [place] [address] NURSNOTEon 01-01-2022 NURSNOTE Pt with increased BP at 178/96 P- 74. PRN labetalol given per orders. Hospitalist aware. Pt remains asymptomatic. Normal [facility] POCT GLUCOSE METER UNSOLICIT ED RESULTSon 01-01-2022 Glucose [Mass/Vol] 150 mg/dL High 70-105 [facility] Comment on above: Result Comment: [email or web address] Performed By: #### L [id number] ####[facility] ([facility])[address] [place] [address] Glucose [Mass/Vol] 113 mg/dL High 70-105 [facility] Comment on above: Result Comment: [email or web address] Performed By: #### L [id number] ####[facility] ([facility])[address] [place] [address] Glucose [Mass/Vol] 128 mg/dL High 70-105 [facility] Comment on above: Result Comment: [email or web address] be Performed By: #### L [id number] ####[facility] ([facility])[address] [place] [address] Glucose [Mass/Vol] 111 mg/dL High 70-105 [facility] Comment on above: Result Comment: [email or web address] Performed By: #### L [id number] #### [facility] ([facility]) [address] [place] [address] BASIC METABOLIC PANELon Anion gap [Moles/Vol] 5 mmol/L Low 7-20 [facility] Comment on above: Performed By: #### L [id number] #### [facility] ([facility]) [address] [place] [address] Calcium [Mass/Vol] 8.4 mg/dL Low 8.6-10.3 [facility] Comment on above: Performed By: #### L [id number] #### [facility] ([facility]) [address] [place] [address] Chloride [Moles/Vol] 107 mmol/L Normal 98-107 [facility] Comment on above: Performed By: #### L [id number] #### [facility] ([facility]) [address] [place] [address] CO2 [Moles/Vol] 27 mmol/L Normal 21-31 [facility] Comment on above: Performed By: #### L [id number] #### [facility] ([facility]) [address] [place] [address] Creatinine [Mass/Vol] 1.30 mg/dL Normal 0.70-1.30 [facility] Comment on above: Performed By: #### L [id number] #### [facility] ([facility]) [address] [place] [address] GLOMERULAR FILTRATION RATE ML/MIN/1.73 SQ M.PREDICTED 60.1 mL/min/1.73m*2 Normal >60.0 [facility] Comment on above: Result Comment: The [facility]???s estimated glomerular filtration rate (eGFR) will [...] group of individuals. Performed By: #### L [id number] #### [facility] ([facility]) [address] [place] [address] Glucose [Mass/Vol] 150 mg/dL High 70-100 [facility] Comment on above: Performed By: #### L [id number] #### [facility] ([facility]) [address] [place] [address] Potassium [Moles/Vol] 3.7 mmol/L Normal 3.5-5.1 [facility] Comment on above: Performed By: #### L [id number] #### [facility] ([facility]) [address] [place] [address] Sodium [Moles/Vol] 139 mmol/L Normal 136-145 [facility] Comment on above: Performed By: #### L [id number] #### [facility] ([facility]) [address] [place] [address] Urea nitrogen [Mass/Vol] 14 mg/dL Normal 7-25 [facility] Comment on above: Performed By: #### L [id number] #### [facility] ([facility]) [address] [place] [address] UREA NITROGEN/CREATININE (MASS RATIO) IN SER/PLAS 10.77 Normal [facility] Comment on above: Performed By: #### L [id number] #### [facility] ([facility]) [address] [place] [address] CBC WITH AUTO DIFFERENTIALon 12-31-2021 Basophils (Bld) [#/Vol] 0.03 10*3/uL Normal 0.00-0.20 [facility] Comment on above: Performed By: #### L [id number] #### [facility] ([facility]) [address] [place] [address] Basophils/100 WBC (Bld) 0.5 % Normal 0.0-1.0 [facility] Comment on above: Performed By: #### L [id number] #### [facility] ([facility]) [address] [place] [address] Eosinophils (Bld) [#/Vol] 0.32 10*3/uL Normal 0.00-0.50 [facility] Comment on above: Performed By: #### L [id number] #### [facility] ([facility]) [address] [place] [address] Eosinophils/100 WBC (Bld) 4.8 % Normal 0.0-6.0 [facility] Comment on above: Performed By: #### L [id number] #### [facility] ([facility]) [address] [place] [address] ERYTHROCYTE DISTRIBUTION WIDTH (RATIO) STANDARD DEVIATION 44.7 Normal [facility] Comment on above: Performed By: #### L [id number] #### [facility] [address] [place] [address] Erythrocyte distribution width (RBC) [Ratio] 13.3 % Normal 11.5-15.0 [facility] Comment on above: Performed By: #### L [id number] #### [facility] ([facility]) [address] [place] [address] ERYTHROCYTE MEAN CORPUSCULAR HEMOGLOBIN CONCENTRATION (G/DL) BY AUTOMATED 32.3 g/dL Normal 32.0-35.0 [facility] Comment on above: Performed By: #### L [id number] #### [facility] ([facility]) [address] [place] [address] Hematocrit (Bld) [Volume fraction] 35.3 % Low 39.0-55.0 [facility] Comment on above: Performed By: #### L [id number] #### [facility] ([facility]) [address] [place] [address] Hemoglobin (Bld) [Mass/Vol] 11.4 g/dL Low 13.0-17.0 [facility] Comment on above: Performed By: #### L [id number] #### [facility] ([facility]) [address] [place] [address] Immature granulocytes (Bld) [#/Vol] 0.04 10*3/uL Normal 0.00-0.20 [facility] Comment on above: Performed By: #### L [id number] #### [facility] ([facility]) [address] [place] [address] Immature granulocytes/100 WBC (Bld) 0.6 % Normal 0.0-1.0 [facility] Comment on above: Performed By: #### L [id number] #### [facility] ([facility]) [address] [place] [address] Lymphocytes (Bld) [#/Vol] 1.44 10*3/uL Normal 1.20-4.00 [facility] Comment on above: Performed By: #### L [id number] #### [facility] ([facility]) [address] [place] [address] Lymphocytes/100 WBC (Bld) 21.7 % Normal 20.0-45.0 [facility] Comment on above: Performed By: #### L [id number] #### [facility] ([facility]) [address] [place] [address] MCH (RBC) [Entitic mass] 30.1 pg Normal 27.0-33.0 [facility] Comment on above: Performed By: #### L [id number] #### [facility] ([facility]) [address] [place] [address] MCV (RBC) [Entitic vol] 93.1 fL Normal 82.0-98.0 [facility] Comment on above: Performed By: #### L [id number] #### [facility] ([facility]) [address] [place] [address] Monocytes (Bld) [#/Vol] 0.61 10*3/uL Normal 0.10-1.00 [facility] Comment on above: Performed By: #### L [id number] #### [facility] ([facility]) [address] [place] [address] Monocytes/100 WBC (Bld) 9.2 % Normal 5.0-12.0 [facility] Comment on above: Performed By: #### L [id number] #### [facility] ([facility]) [address] [place] [address] Neutrophils (Bld) [#/Vol] 4.19 10*3/uL Normal 1.60-7.60 [facility] Comment on above: Performed By: #### L [id number] #### [facility] ([facility]) [address] [place] [address] Neutrophils/100 WBC (Bld) 63.2 % Normal 40.0-72.0 [facility] Comment on above: Performed By: #### L [id number] #### [facility] ([facility]) [address] [place] [address] NRBC (PER 100 WBCS) BY AUTOMATED COUNT 0.0 % Normal 0.0-0.0 [facility] Comment on above: Performed By: #### L [id number] #### [facility] ([facility]) [address] [place] [address] PLATELETS (10*3/UL) IN BLOOD AUTOMATED COUNT 228 10*3/uL Normal 150-400 [facility] Comment on above: Performed By: #### L [id number] #### [facility] ([facility]) [address] [place] [address] RBC (Bld) [#/Vol] 3.79 10*6/uL Low 4.20-5.70 [facility] Comment on above: Performed By: #### L [id number] #### [facility] ([facility]) [address] [place] [address] WBC (Bld) [#/Vol] 6.63 10*3/uL Normal 4.00-10.60 [facility] Comment on above: Performed By: #### L [id number] #### [facility] ([facility]) [address] [place] [address] POCT GLUCOSE METER UNSOLICIT ED RESULTSon 12-31-2021 Glucose [Mass/Vol] 129 mg/dL High 70-105 [facility] Comment on above: Result Comment: hayley [email or web address] Performed By: #### L [id number] #### [facility] ([facility]) [address] [place] [address] Glucose [Mass/Vol] 136 mg/dL High 70-105 [facility] Comment on above: Result Comment: elac umsky Performed By: #### L [id number] #### [facility] ([facility]) [address] [place] [address] Glucose [Mass/Vol] 148 mg/dL High 70-105 [facility] Comment on above: Result Comment: elac umsky Performed By: #### L [id number] ####[facility] ([facility])[address] [place] [address] Glucose [Mass/Vol] 109 mg/dL High 70-105 [facility] Comment on above: Result Comment: elac umsky Performed By: #### L [id number] ####[facility] ([facility])[address] [place] [address] POCT GLUCOSE METER UNSOLICIT ED RESULTSon 12-30-2021 Glucose [Mass/Vol] 128 mg/dL High 70-105 [facility] Comment on above: Result Comment: [email or web address] Performed By: #### L [id number] ####[facility] ([facility])[address] [place] [address] Glucose [Mass/Vol] 117 mg/dL High 70-105 [facility] Comment on above: Result Comment: elac umsky Performed By: #### L [id number] #### [facility] ([facility]) [address] [place] [address] Glucose [Mass/Vol] 128 mg/dL High 70-105 [facility] Comment on above: Result Comment: [email or web address] Performed By: #### L [id number] ####[facility] ([facility])[address] [place] [address] Glucose [Mass/Vol] 94 mg/dL Normal 70-105 [facility] Comment on above: Result Comment: elac umsky Performed By: #### L [id number] ####[facility] ([facility])[address] [place] [address] POCT GLUCOSE METER UNSOLICIT ED RESULTSon 12-29-2021 Glucose [Mass/Vol] 153 mg/dL High 70-105 [facility] Comment on above: Result Comment: leah guerra Performed By: #### L [id number] ####[facility] ([facility])[address] [place] [address] Glucose [Mass/Vol] 130 mg/dL High 70-105 [facility] Comment on above: Result Comment: ayah whalen Performed By: #### L [id number] #### [facility] ([facility]) [address] [place] [address] Glucose [Mass/Vol] 98 mg/dL Normal 70-105 [facility] Comment on above: Result Comment: debbie solis Performed By: #### L [id number] #### [facility] ([facility]) [address] [place] [address] Glucose [Mass/Vol] 124 mg/dL High 70-105 [facility] Comment on above: Result Comment: [email or web address] Performed By: #### L [id number] ####[facility] ([facility])[address] [place] [address] VANCOMYCIN, PEAKon 2 VANCOMYCIN (UG/ML) IN SER/PLAS - PEAK 20.6 ug/mL Normal 20.0-50.0 [facility] Comment on above: Order Comment: (NOT duplicated order) Performed By: #### L [id number] #### [facility] ([facility]) [address] [place] [address] BASIC METABOLIC PANELon 11-0 Anion gap [Moles/Vol] 7 mmol/L Normal 7-20 [facility] Comment on above: Performed By: #### L [id number] ####[facility] ([facility])[address] [place] [address] Calcium [Mass/Vol] 8.4 mg/dL Low 8.6-10.3 [facility] Comment on above: Performed By: #### L [id number] ####[facility] ([facility])[address] [place] [address] Chloride [Moles/Vol] 107 mmol/L Normal 98-107 [facility] Comment on above: Performed By: #### L [id number] ####[facility] ([facility])[address] [place] [address] CO2 [Moles/Vol] 25 mmol/L Normal 21-31 [facility] Comment on above: Performed By: #### L [id number] ####[facility] ([facility])[address] [place] [address] Creatinine [Mass/Vol] 1.34 mg/dL High 0.70-1.30 [facility] Comment on above: Performed By: #### L [id number] ####[facility] ([facility])[address] [place] [address] GLOMERULAR FILTRATION RATE ML/MIN/1.73 SQ M.PREDICTED 58.0 mL/min/1.73m*2 Low >60.0 [facility] Comment on above: Result Comment: The [facility]???s estimated glomerular filtration rate (eGFR) will [...] of individuals. Performed By: #### L [id number] ####[facility] ([facility])[address] [place] [address] Glucose [Mass/Vol] 208 mg/dL High 70-100 [facility] Comment on above: Performed By: #### L [id number] ####[facility] ([facility])[address] [place] [address] Potassium [Moles/Vol] 5.1 mmol/L Normal 3.5-5.1 [facility] Comment on above: Performed By: #### L [id number] ####[facility] ([facility])[address] [place] [address] Sodium [Moles/Vol] 139 mmol/L Normal 136-145 [facility] Comment on above: Performed By: #### L [id number] ####[facility] ([facility])[address] [place] [address] Urea nitrogen [Mass/Vol] 23 mg/dL Normal 7-25 [facility] Comment on above: Performed By: #### L [id number] ####[facility] ([facility])[address] [place] [address] UREA NITROGEN/CREATININE (MASS RATIO) IN SER/PLAS 17.16 Normal [facility] Comment on above: Performed By: #### L [id number] ####[facility] ([facility])[address] [place] [address] C-REACTIVE PROTEINon 022 C REACTIVE PROTEIN (MG/L) IN SER/PLAS 14.2 mg/L High 0.0-7.0 [facility] Comment on above: Performed By: #### L [id number] #### [facility] ([facility]) [address] [place] [address] CBCon 12-28-2021 Erythrocyte distribution width (RBC) [Ratio] 13.2 % Normal 11.5-15.0 [facility] Comment on above: Performed By: #### L [id number] #### [facility] ([facility]) [address] [place] [address] ERYTHROCYTE MEAN CORPUSCULAR HEMOGLOBIN CONCENTRATION (G/DL) BY AUTOMATED 32.7 g/dL Normal 32.0-35.0 [facility] Comment on above: Performed By: #### L [id number] #### [facility] ([facility]) [address] [place] [address] Hematocrit (Bld) [Volume fraction] 32.1 % Low 39.0-55.0 [facility] Comment on above: Performed By: #### L [id number] #### [facility] ([facility]) [address] [place] [address] Hemoglobin (Bld) [Mass/Vol] 10.5 g/dL Low 13.0-17.0 [facility] Comment on above: Performed By: #### L [id number] #### [facility] ([facility]) [address] [place] [address] MCH (RBC) [Entitic mass] 30.2 pg Normal 27.0-33.0 [facility] Comment on above: Performed By: #### L [id number] #### [facility] ([facility]) [address] [place] [address] MCV (RBC) [Entitic vol] 92.2 fL Normal 82.0-98.0 [facility] Comment on above: Performed By: #### L [id number] #### [facility] ([facility]) [address] [place] [address] PLATELETS (10*3/UL) IN BLOOD AUTOMATED COUNT 235 10*3/uL Normal 150-400 [facility] Comment on above: Performed By: #### L [id number] #### [facility] ([facility]) [address] [place] [address] RBC (Bld) [#/Vol] 3.48 10*6/uL Low 4.20-5.70 [facility] Comment on above: Performed By: #### L [id number] #### [facility] ([facility]) [address] [place] [address] WBC (Bld) [#/Vol] 12.19 10*3/uL High 4.00-10.60 [facility] Comment on above: Performed By: #### L [id number] #### [facility] ([facility]) [address] [place] [address] POCT GLUCOSE METER UNSOLICIT ED RESULTSon 12-28-2021 Glucose [Mass/Vol] 187 mg/dL High 70-105 [facility] Comment on above: Result Comment: [email or web address] Performed By: #### L [id number] ####[facility] ([facility])[address] [place] [address] Glucose [Mass/Vol] 135 mg/dL High 70-105 [facility] Comment on above: Result Comment: [email or web address] Performed By: #### L [id number] ####[facility] ([facility])[address] [place] [address] Glucose [Mass/Vol] 180 mg/dL High 70-105 [facility] Comment on above: Result Comment: bcur ry Performed By: #### L [id number] #### [facility] ([facility]) [address] [place] [address] Glucose [Mass/Vol] 165 mg/dL High 70-105 [facility] Comment on above: Result Comment: bcur ry Performed By: #### L [id number] ####[facility] ([facility])[address] [place] [address] SEDIMENTATION RATEon 022 SEDIMENTATION RATE, ERYTHROCYTE 53 mm/hr High <=10 [facility] Comment on above: Performed By: #### L [id number] #### [facility] ([facility]) [address] [place] [address] VANCOMYCIN, TROUGHon 022 VANCOMYCIN (UG/ML) IN SER/PLAS - TROUGH 13.1 ug/mL Normal 5.0-20.0 [facility] Comment on above: Performed By: #### L [id number] ####[facility] ([facility])[address] [place] [address] BASIC METABOLIC PANELon 11-0 Anion gap [Moles/Vol] 8 mmol/L Normal 7-20 [facility] Comment on above: Performed By: #### L [id number] #### [facility] ([facility]) [address] [place] [address] Calcium [Mass/Vol] 8.7 mg/dL Normal 8.6-10.3 [facility] Comment on above: Performed By: #### L [id number] #### [facility] ([facility]) [address] [place] [address] Chloride [Moles/Vol] 104 mmol/L Normal 98-107 [facility] Comment on above: Performed By: #### L [id number] #### [facility] ([facility]) [address] [place] [address] CO2 [Moles/Vol] 25 mmol/L Normal 21-31 [facility] Comment on above: Performed By: #### L [id number] #### [facility] ([facility]) [address] [place] [address] Creatinine [Mass/Vol] 1.49 mg/dL High 0.70-1.30 [facility] Comment on above: Performed By: #### L [id number] #### [facility] ([facility]) [address] [place] [address] GLOMERULAR FILTRATION RATE ML/MIN/1.73 SQ M.PREDICTED 51.0 mL/min/1.73m*2 Low >60.0 [facility] Comment on above: Result Comment: [facility]???s estimated glomerular filtration rate (eGFR) will [...] group of individuals. Performed By: #### L [id number] #### [facility] ([facility]) [address] [place] [address] Glucose [Mass/Vol] 246 mg/dL High 70-100 [facility] Comment on above: Performed By: #### L [id number] #### [facility] ([facility]) [address] [place] [address] Potassium [Moles/Vol] 4.4 mmol/L Normal 3.5-5.1 [facility] Comment on above: Performed By: #### L [id number] #### [facility] ([facility]) [address] [place] [address] Sodium [Moles/Vol] 137 mmol/L Normal 136-145 [facility] Comment on above: Performed By: #### L [id number] #### [facility] ([facility]) [address] [place] [address] Urea nitrogen [Mass/Vol] 23 mg/dL Normal 7-25 [facility] Comment on above: Performed By: #### L [id number] #### [facility] ([facility]) [address] [place] [address] UREA NITROGEN/CREATININE (MASS RATIO) IN SER/PLAS 15.44 Normal [facility] Comment on above: Performed By: #### L [id number] #### [facility] ([facility]) [address] [place] [address] BODY FLUID CULTUREon 022 Bacteria identified Cx Nom (Unsp spec) No growth at 5 days Normal [facility] Comment on above: Order Comment: Pre-o p diagnosis:Chronic instability of right knee [M23.51]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, initial encounter (CMS/[facility]) [T84.032A]Quadriceps weakness [M62.81]Lumbosacral radiculopathy [M54.17] Performed By: #### L [id number] #### [facility] ([facility]) [address] [place] [address] GRAM STAIN RESULT Abnormal [facility] Comment on above: Order Comment: Pre-o p diagnosis:Chronic instability of right knee [M23.51]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 If no response within 15 min and after hours, call [phone] Patient name: Sukhdeep Simental Patient Today's Date [...] hardware. Infectious is consulted for possible infected publicity director to her infection. The prosthesis has been [...] Friends and Family: Once a week Attends Islam Services: Never Active Member of Clubs or [...] Rash Topical iodi (more content not included)... Normal [facility] CONSULT -- Attestation signed by Kb Cordova [...] prostatic hyperplasia), CKD (chronic kidney disease), Diabetes ([facility]), GERD (gastroesophageal reflux disease), Hyperlipidemia, Hyperparathyroidism ([facility]), Hypertension, Lumbar pain, OA (osteoarthritis), Obesity, Obstetric [...] in the evening. Past Week HYDROcodone-acetaminop hen ([place]) 5-325 mg tablet Take 1 tablet by [...] Continuous PRN (more content not included)... 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, initial encounter ([facility]) [T84.032A]Quadriceps weakness [M62.81]Lumbosacral radiculopathy [M54.17] Performed By: #### L [id number] #### [facility] ([facility]) [address] [place] [address] FUNGAL SMEAR No fungal elements seen Normal [facility] Comment on above: Order Comment: Pre-o p diagnosis:Chronic instability of right knee [M23.51]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, initial encounter (CMS/[facility]) [T84.032A]Quadriceps weakness [M62.81]Lumbosacral radiculopathy [M54.17] Performed By: #### L [id number] #### [facility] ([facility]) [address] [place] [address] FUNGAL SMEAR No fungal elements seen Normal [facility] Comment on above: Order Comment: Pre-o p diagnosis:Chronic instability of right knee [M23.51]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, initial encounter (CMS/[facility]) [T84.032A]Quadriceps weakness [M62.81]Lumbosacral radiculopathy [M54.17] Performed By: #### L [id number] #### [facility] [address] [place] [address] HISTOLOGY - TISSUE EXAMon LAB AP CASE REPORT Normal [facility] Comment on above: Order Comment: Pre-o p diagnosis:Chronic instability of right knee [M23.51]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, initial encounter ([facility]) [T84.032A]Quadriceps weakness [M62.81]Lumbosacral radiculopathy [M54.17] Result Comment: Surg ical Pathology Case: [id number] Authorizing Provider: Payton Helm MD Collected: 12/27/202118 Ordering Location: [facility] Main Operating Room Received: 12/27/2021 0952 Pathologist: Pricilla Fernando MD Intraop: Luis Juares MD Specimens: A) - Knee, RIGHT KNEE SYNOVIUM B) - Tibia, RIGHT TIBIA C) - Femur, RIGHT FEMUR D) - Patella, RIGHT PATELLA E) - Knee, RIGHT KNEE POSTERIOR CAPSULE Performed By: #### L [id number] #### [facility] ([facility]) [address] [place] [address] LAB AP CLINICAL INFORMATION Normal [facility] Comment on above: Order Comment: Pre-o p diagnosis:Chronic instability of right knee [M23.51]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, initial encounter ([facility]) [T84.032A]Quadriceps weakness [M62.81]Lumbosacral radiculopathy [M54.17] Result Comment: Pre- op diagnosis: Chronic instability of right knee [M23.51] 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 Knee. 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 Editor sections are submitted for frozen section analysis. Editor sections are submitted as follows: A1: Frozen remnant A2-A4: Soft tissue [facility] [employer] Grinder B. Tibia. Part B is received fresh for intraoperative consultation, labeled right tibia. It consists of a 3.0 x 2.5 x 1.2 cm aggregate of bundy-pink, rubbery, irregular soft tissue and possible bone. The specimen is serially sectioned to reveal bundy-pink and bundy-white, rubbery cut surfaces. Editor sections are submitted for frozen section analysis. Editor sections are submitted as follows: B1: Frozen remnant B2-B4: Soft tissue and bone, following decalcification [employer] C. Femur. Part C is receivedfresh for intraoperative consultation, labeled Sukhdeep F Simental and RIGHT FEMUR. It consists of a 4.0 x 2.6 x 1.4 cm aggregate of bundy-pink, rubbery, irregular soft tissue and possible bone. The specimen is serially sectioned to reveal bundy-pink and bundy-white, rubbery cut surfaces. Editor sections are submitted for frozen section analysis. Editor sections are submitted as follows: C1: Frozen remnant C2-C4: Soft tissue and bone, following decalcification Guille aShni [employer]' [employer]vex Grinder D. Patella. Part D is received fresh for intraoperative consultation, labeled right patella. It consists of a 6.4 x 4.6 x 1.3 cm aggregate of bundy-pink, rubbery, irregular soft tissue. The specimen is serially sectioned to reveal bundy-pink and bundy-white, rubbery cut surfaces. Editor sections are submitted for frozen section analysis. Editor sections are submitted as follows: D1: Frozen remnant D2-D4: Soft tissue Guille Sahni Pathologists' Convex Grinder E. Knee. Part E is received fresh for intraoperative consultation, labeled right knee posterior capsule. It consists of a 1.6 x 0.8 x 0.5 cm piece of bundy-pink, rubbery, irregular soft tissue. The specimen is serially sectioned to reveal bundy-pink and bundy-white, rubbery cut surfaces. The specimen is entirely submitted for frozen section analysis. The frozen remnant is entirely submitted in 1 cassette. Jacob Mc' Convex Grinder Performed By: #### L [id number] #### [facility] ([facility]) [address] [place] [address] LAB AP INTRAOPERATIVE CONSULTATION A. Knee. 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, initial encounter ([facility]) [T84.032A]Quadriceps weakness [M62.81]Lumbosacral radiculopathy [M54.17] Performed By: #### L [id number] #### [facility] ([facility]) [address] [place] [address] LAB AP REPORT FINAL DIAGNOSIS NARRATIVE Normal [facility] Comment on above: Order Comment: Pre-o p diagnosis:Chronic instability of right knee [M23.51]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 Surgeons * Payton Helm - Primary Convex Grinder; Dave Brooke MD resident orthopedic surgery Procedure [...] CULTURE Payton Helm MD 12/27/21 0946 Routine [id number], [id number], [id number] Description: RIGHT KNEE SYNOVIAL FLUID 2 Femur Tissue ANAEROBIC CULTURE FUNGAL CULTURE TISSUE CULTURE Payton Helm MD 12/27/21 0951 Routine [id number], [id number], [id number] Description: RIGHT FEMUR 3 Tibia Tissue ANAEROBIC CULTURE FUNGAL CULTURE TISSUE CULTURE Payton Helm MD 12/27/21 0953 Routine [id number], [id number], [id number] Description: RIGHT TIBIA 4 Patella Tissue ANAEROBIC CULTURE FUNGAL CULTURE TISSUE CULTURE Payton Helm MD 12/27/21 0954 Routine [id number], [id number], [id number] Description: RIGHT PATELLA A Knee Synovium HISTOLOGY - TISSUE EXAM Payton Helm MD 12/27/21 0918 Yes STAT [id number] Description: RIGHT KNEE SYNOVIUM B Tibia Tissue HISTOLOGY - TISSUE EXAM Payton Helm MD 12/27/21 0936 Yes STAT [id number] Description: RIGHT TIBIA C Femur Tissue HISTOLOGY - TISSUE EXAM Payton Helm MD 12/27/21 0940 Yes STAT [id number] Description: RIGHT FEMUR D Patella Tissue HISTOLOGY - TISSUE EXAM Payton Helm MD 12/27/21 0942 Yes STAT [id number] Description: RIGHT PATELLA E Knee Tissue HISTOLOGY - TISSUE EXAM Payton Helm MD 12/27/21 0943 Yes STAT [id number] Description: RIGHT KNEE POSTERIOR CAPSULE Implants Type Name Action Serial No. Bone Cement CEMENT,BONE,R,1X40US - [id number] Implanted REMEDY TIBIAL INSERT WEDGE Implanted REMEDY STEMMED TIBIAL COMPONENT Implanted REMEDY STEMMED FEMORAL COMPONENT Implanted REMEDY STEM EXTENSION COMPONENT Implanted Staff: Blood Bank Booking Clerk: Nathaly Funk RN Relief Scrub: Aline Brooke, CARLA Scrub Person: Yany Chanel CST Store Group Manager: Johnny Scott [employer] Blood Bank Booking Clerk: Sonya Noriega Indications: Sukhdeep Simental is an 56 y.o. 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 [...] as wel (more content not included)... Normal [facility] OPNOTE -- Attestation signed by Payton Helm MD at 12/27/2021 3:36 PM I was present for the entire procedure. 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, initial encounter ([facility]) [T84.032A] * Quadriceps weakness [M62.81] * Lumbosacral radiculopathy [M54.17] Procedures INFECTED PROSTHETIC, STAGE 1 REVISION AND DEBRIDEMENT, REMOVAL OF HARDWARE ALL COMPONENTS, WASHOUT AND SPACER PLACEMENT [address] - [place] REVJ TOT KNEE ARTHRP FEM&ENTIRE TIBIAL COMPONE [...] CULTURE Payton Helm MD 12/27/21 0946 Routine [id number], [id number], [id number] Description: RIGHT KNEE SYNOVIAL FLUID 2 Femur Tissue ANAEROBIC CULTURE FUNGAL CULTURE TISSUE CULTURE Payton Helm MD 12/27/21 0951 Routine [id number], [id number], [id number] Description: RIGHT FEMUR 3 Tibia Tissue ANAEROBIC CULTURE FUNGAL CULTURE TISSUE CULTURE Payton Helm MD 12/27/21 0953 Routine [id number], [id number], [id number] Description: RIGHT TIBIA 4 Patella Tissue ANAEROBIC CULTURE FUNGAL CULTURE TISSUE CULTURE Payton Helm MD 12/27/21 0954 Routine [id number], [id number], [id number] Description: RIGHT PATELLA A Knee Synovium HISTOLOGY - TISSUE EXAM Payton Helm MD 12/27/21 0918 Yes STAT [id number] Description: RIGHT KNEE SYNOVIUM B Tibia Tissue HISTOLOGY - TISSUE EXAM Payton Helm MD 12/27/21 0936 Yes STAT [id number] Description: RIGHT TIBIA C Femur Tissue HISTOLOGY - TISSUE EXAM Payton Helm MD 12/27/21 0940 Yes STAT [id number] Description: RIGHT FEMUR D Patella Tissue HISTOLOGY - TISSUE EXAM Payton Helm MD 12/27/21 0942 Yes STAT [id number] Description: RIGHT PATELLA E Knee Tissue HISTOLOGY - TISSUE EXAM Payton Helm MD 12/27/21 0943 Yes STAT [id number] Description: RIGHT KNEE POSTERIOR CAPSULE Implants Type Name Action Serial No. Bone Cement CEMENT,BONE,R,1X40US - [id number] Implanted REMEDY TIBIAL INSERT WEDGE Implanted REMEDY STEMMED TIBIAL COMPONENT Implanted REMEDY STEMMED FEMORAL COMPONENT Implanted REMEDY STEM EXTENSION COMPONENT Implanted Staff: Blood Bank Booking Clerk: Nathaly Funk RN Relief Scrub: Aline Brooke, LOG ROLLER Scrub Person: Yany Chanel, CARLA Store Group Manager: Johnny Scott [employer] Booking Clerk: Sonya Noriega Indications: Sukhdeep Simental is an 56 y.o. 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 Findings: Right femoral and tibial components that are loose. Complications: None; patient tolerated the procedure well. Disposition: PACU - hemodynamically stable. 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, initial encounter ([facility]) [T84.032A] Quadriceps weakness [M62.81] Lumbosacral radiculopathy [M54.17] Collected By: Payton Helm MD 12/27/2021 9:47 AM Release to Patient Immediately BODY FLUID CULTURE Knee Pre-op diagnosis: Chronic instability of right knee [M23.51] 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 Normal [facility] POCT GLUCOSE METER UNSOLICIT ED RESULTSon 12-27-2021 Glucose [Mass/Vol] 275 mg/dL High 70-105 [facility] Comment on above: Result Comment: abar [email or web address] Performed By: #### L [id number] ####[facility] ([facility])[address] [facility] [place] [address] Glucose [Mass/Vol] 274 mg/dL High 70-105 [facility] Comment on above: Result Comment: elac umsky Performed By: #### L [id number] ####[facility] ([facility])[address] [facility] [place] [address] Glucose [Mass/Vol] 183 mg/dL High 70-105 [facility] Comment on above: Result Comment: yesenia [email or web address] Performed By: #### L [id number] #### [facility] ([facility]) [address] [place] [address] Glucose [Mass/Vol] 101 mg/dL Normal 70-105 [facility] Comment on above: Result Comment: fawn rd Performed By: #### L [id number] ####[facility] ([facility])[address] 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, initial encounter ([facility]) [T84.032A]Quadriceps weakness [M62.81]Lumbosacral radiculopathy [M54.17] Performed By: #### L [id number] #### [facility] ([facility]) [address] [place] [address] GRAM STAIN RESULT Normal [facility] Comment on above: Order Comment: Pre-o p diagnosis:Chronic instability of right knee [M23.51]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, initial encounter (CMS/[facility]) [T84.032A]Quadriceps weakness [M62.81]Lumbosacral radiculopathy [M54.17] Result Comment: Zero Polymorphonuclear leukocytes No organisms seen Performed By: #### L [id number] #### [facility] ([facility]) [address] [place] [address] Bacteria identified Cx Nom (Unsp spec) No growth at 5 days Normal [facility] Comment on above: Order Comment: Pre-o p diagnosis:Chronic instability of right knee [M23.51]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, initial encounter (CMS/[facility]) [T84.032A]Quadriceps weakness [M62.81]Lumbosacral radiculopathy [M54.17] Performed By: #### L [id number] #### [facility] ([facility]) [address] [place] [address] GRAM STAIN RESULT Normal [facility] Comment on above: Order Comment: Pre-o p diagnosis:Chronic instability of right knee [M23.51]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, initial encounter (CMS/[facility]) [T84.032A]Quadriceps weakness [M62.81]Lumbosacral radiculopathy [M54.17] Result Comment: Mode rate Polymorphonuclear leukocytes No organisms seen Performed By: #### L [id number] #### [facility] ([facility]) [address] [place] [address] Bacteria identified Cx Nom (Unsp spec) No growth at 5 days Normal [facility] Comment on above: Order Comment: Pre-o p diagnosis:Chronic instability of right knee [M23.51]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, initial encounter (CMS/HCC) [T84.032A]Quadriceps weakness [M62.81]Lumbosacral radiculopathy [M54.17] Performed By: #### L [id number] #### [facility] ([facility]) [address] [place] [address] GRAM STAIN RESULT Normal [facility] Comment on above: Order Comment: Pre-o p diagnosis:Chronic instability of right knee [M23.51]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, initial encounter (CMS/[facility]) [T84.032A]Quadriceps weakness [M62.81]Lumbosacral radiculopathy [M54.17] Result Comment: Many Polymorphonuclear leukocytes No organisms seen Performed By: #### L [id number] #### [facility] ([facility]) [address] [place] [address] Orders Onlyon 12-25-2021 Orders Only [id number] Sukhdeep Simetnal 1965 M Date Provider Department Center 12/25/2021 [id number], [facility]IST[facility]ICAL [facility] Medical Family History Problem Relation Age of Onset Dementia Mother Esophageal cancer Father Alcohol abuse Father Family Status - Relation Status Age at Mother Alive Father Normal [facility] US KIDNEYSon 12-21-2021 US KIDNEYS EXAMINATION: [...] by: OBIE TSE Date: 2021-12-21 17:34 Normal [facility] XR ABD FLAT UP_PA Barrett 12-21 XR [...] by: AUSTIN LARIOS Date: 2021-12-21 18:13 Normal [facility] Office Visiton 12-20-2021 Follow-up visit [id number] Sukhdeep Simental 1965 M Date Provider Department Center 12/20/2021 JASON ALVES MP ORTHO MPORTHO Family History Problem Relation Age of Onset Dementia Mother Esophageal cancer Father Alcohol abuse Father Family Status - Relation Status Age at Mother Alive Father Level of Service:[address] [place] OFFICE/OUTPATIENT ESTABLISHED LOW MDM 20-29 MIN (GC) Reason for Visit and Comments: Pain [136] Normal [facility] [id number] 12-19-2021 [id number] NPO after MN Must have a driver helper to take you home and someone to stay for 24 hours after surgery. No jewelry. Hold the meds we spoke about: VITAMINS AND NSAIDS Take the meds we spoke about w/a sip of water DOS: CARDURA, REGLAN, PEPCID FLOMAX Bring insurance card and ID. Normal [facility] Documentationon 12-19-2021 Documentation [id number] Sukhdeep Simental 1965 M Date Provider Department Center 12/19/2021 BLADIMIR ROSE MP ORTHO MPORTHO Family History Problem Relation Age of Onset Dementia Mother Esophageal cancer Father Alcohol abuse Father Family Status - Relation Status Age at Mother Alive Father Reason for Visit and Comments: pre-op [Other] - Mr Simental called regarding HHC. He would like [facility] to come out for the first 1-2 weeks then would like to go to outpatient therapy at [facility]. Normal [facility] Urine culture routineOrdered By: Estephanie Lowry on 12-17-2021 Bacteria identified Cx Nom (U) No Growth 2 Days [place] Chlamydia trachomatis DNA [P resence] in Specimen by MUKUL with probe detectionOrdered By: Estephanie Lowry on 12-15-2021 C. trachomatis DNA MUKUL+probe Ql (Unsp spec) Negative Negative [place] Chlamydia/GC/Trich NAAon Chlamydia Trachomotis, MUKUL Negative Normal Negative [place] Comment on above: Order Comment: Reaso n for Exam Dysuria Performed By: #### G CCHLAMTRI #### [facility] , #### CUU #### [facility] [address] Neisseria Gonorrhoeae, MUKUL Negative Normal Negative [place] Comment on above: Order Comment: Reaso n for Exam Dysuria Performed By: #### G CCHLAMTRI #### [facility] , #### CUU #### [facility] [address] Trichomonas MUKUL Negative Normal Negative [place] Comment on above: Order Comment: Reaso n for Exam Dysuria Result Comment: Perf ormed at: =G - [facility] [address] [id number] Home Health Manager: Shoshana Camargo MD, Phone: [phone] PERFORMED BY: [place] [address] PATHOLOGIST SCALE MODEL MAKER SABRA SAUNDERS M.D. Performed By: #### G CCHLAMTRI #### [facility] , #### CUU #### [facility] [address] [place] [address] [place] Chlamydia/GC/Trich MUKUL Negative Negative [facility] Other Neisseria gonorrhoeae DNA [P resence] in Specimen by MUKUL with probe detectionOrdered By: Estephanie Lowry on 12-15-2021 N. gonorrhoeae DNA MUKUL+probe Ql (Unsp spec) Negative Negative [place] Trichomonas vaginalis DNA [P resence] in Specimen by MUKUL with probe detectionOrdered By: Estephanie Lowry on 12-15-2021 T. vaginalis DNA MUKUL+probe Ql (Unsp spec) Negative Negative [place] Comment on above: Performed at: [facility] [address] [id number] Director: Shoshana Camargo MD, Phone: [phone] Urinalysis - AUTOMATEDon Appearance (U) clear Health: [place] Other Bilirubin Ql (U) Negative [employer] Other Color (U) orange [facility] Other Glucose Ql (U) Negative Health: [place] Other Hemoglobin Ql (U) moderate mWater Other Ketones Ql (U) Negative Health: [place] Other Leukocyte esterase Test strip Ql (U) Negative [facility] Other Nitrite Ql (U) Positive Health: [place] Other pH (U) 5.5 [pH] [facility] Other Protein Ql (U) Negative Health: [place] Other Specific gravity (U) [Rel density] 1.015 [facility] Other Urobilinogen (U) [Mass/Vol] 0.2 mg/dL [facility] Other Urinalysis - AUTOMATED [facility] Other Urine Cultureon 12-15-2021 Bacteria identified Cx Nom (U) Reason for Exam Dysuria Urine No Growth 2 Days PERFORMED BY: [place] [address] PATHOLOGIST SCALE MODEL MAKER SABRA SAUNDERS M.D. Normal [place] Comment on above: Performed By: #### G CCHLAMTRI #### [facility] , #### CUU #### [address] Bacteria identified Cx Nom (U) [facility] Other 36on 12-14-2021 36 I called and [...] home. He would like outpatient therapy at [facility]. He has a walker, shower chair, and raised toilet seat. Normal [facility] Orders Onlyon 12-14-2021 Orders Only [id number] Sukhdeep Simental 1965 M [facility] Provider Department Center 12/14/2021 BLADIMIR ROSE MP Family History Problem Relation Age of Onset Dementia Mother Esophageal cancer Father Alcohol abuse Father Family Status - Relation Status Age at Mother Alive Father Normal [facility] Telephoneon 12-14-2021 Telephone [id number] Sukhdeep Simental 1965 M Date Provider Department Center 12/14/2021 BLADIMIR ROSE MP Family History Problem Relation Age of Onset Dementia Mother Esophageal cancer Father Alcohol abuse Father Family Status - Relation Status Age at Mother Alive Father Normal [facility] APTTon 12-01-2021 ACTIVATED PARTIAL THROMBOPLASTIN TIME IN PPP BY COAGULATION ASSAY 28.5 Seconds Normal 25.0-35.0 [facility] Comment on above: Performed By: #### L [id number] ####[facility] ([facility])[address] [place] [address] BASIC METABOLIC PANELon Anion gap [Moles/Vol] 9 mmol/L Normal <=30 [facility] Comment on above: Performed By: #### L [id number] ####[facility] ([facility])[address] [place] [address] Calcium [Mass/Vol] 9.2 mg/dL Normal 8.6-10.3 [facility] Comment on above: Performed By: #### L [id number] ####[facility] ([facility])[address] [place] [address] Chloride [Moles/Vol] 104 mmol/L Normal 98-107 [facility] Comment on above: Performed By: #### L [id number] ####[facility] ([facility])[address] [place] [address] CO2 [Moles/Vol] 29 mmol/L Normal 21-31 [facility] Comment on above: Performed By: #### L [id number] ####[facility] ([facility])[address] [place] [address] Creatinine [Mass/Vol] 1.42 mg/dL High 0.70-1.30 [facility] Comment on above: Performed By: #### L [id number] ####[facility] [place] [address] GLOMERULAR FILTRATION RATE ML/MIN/1.73 SQ M.PREDICTED 54.1 mL/min/1.73m*2 Low >60.0 [facility] Comment on above: Result Comment: [facility]???s estimated glomerular filtration rate (eGFR) will [...] of individuals. Performed By: #### L [id number] ####[facility] ([facility])[address] [place] [address] Glucose [Mass/Vol] 105 mg/dL High 70-100 [facility] Comment on above: Performed By: #### L [id number] ####[facility] ([facility])[address] [place] [address] Potassium [Moles/Vol] 4.3 mmol/L Normal 3.5-5.1 [facility] Comment on above: Performed By: #### L [id number] ####[facility] ([facility])[address] [place] [address] Sodium [Moles/Vol] 142 mmol/L Normal 136-145 [facility] Comment on above: Performed By: #### L [id number] ####[facility] ([facility])[address] [place] [address] Urea nitrogen [Mass/Vol] 16 mg/dL Normal 7-25 [facility] Comment on above: Performed By: #### L [id number] ####[facility] ([facility])[address] [place] [address] UREA NITROGEN/CREATININE (MASS RATIO) IN SER/PLAS 11.27 Normal [facility] Comment on above: Performed By: #### L [id number] ####[facility] ([facility])[address] [place] [address] CBC WITH AUTO DIFFERENTIALon 12-01-2021 Basophils (Bld) [#/Vol] 0.02 10*3/uL Normal 0.00-0.20 [facility] Comment on above: Performed By: #### L [id number] ####[facility] ([facility])[address] [place] [address] Basophils/100 WBC (Bld) 0.4 % Normal 0.0-1.0 [facility] Comment on above: Performed By: #### L [id number] ####[facility] ([facility])[address] [place] [address] Eosinophils (Bld) [#/Vol] 0.08 10*3/uL Normal 0.00-0.50 [facility] Comment on above: Performed By: #### L [id number] ####[facility] (BEAKER)[address] [place] [address] Eosinophils/100 WBC (Bld) 1.5 % Normal 0.0-6.0 [facility] Comment on above: Performed By: #### L [id number] ####[facility] (BEAK[facility])[address] [place] [address] ERYTHROCYTE DISTRIBUTION WIDTH (RATIO) STANDARD DEVIATION 44.9 Normal [facility] Comment on above: Performed By: #### L [id number] ####[facility] (BEAKER)[address] [place] [address] Erythrocyte distribution width (RBC) [Ratio] 13.4 % Normal 11.5-15.0 [facility] Comment on above: Performed By: #### L [id number] ####[facility] (BEAKER)[address] [place] [address] ERYTHROCYTE MEAN CORPUSCULAR HEMOGLOBIN CONCENTRATION (G/DL) BY AUTOMATED 32.9 g/dL Normal 32.0-35.0 [facility] Comment on above: Performed By: #### L [id number] ####[facility] (BEAKER)[address] [place] [address] Hematocrit (Bld) [Volume fraction] 36.2 % Low 39.0-55.0 [facility] Comment on above: Performed By: #### L [id number] ####[facility] (BEAK[facility])[address] [place] [address] Hemoglobin (Bld) [Mass/Vol] 11.9 g/dL Low 13.0-17.0 [facility] Comment on above: Performed By: #### L [id number] ####[facility] (BEAKER)[address] [place] [address] Immature granulocytes (Bld) [#/Vol] 0.01 10*3/uL Normal 0.00-0.20 [facility] Comment on above: Performed By: #### L [id number] ####[facility] (BE[facility])[address] [place] [address] Immature granulocytes/100 WBC (Bld) 0.2 % Normal 0.0-1.0 [facility] Comment on above: Performed By: #### L [id number] ####[facility] (BE[facility]ER)[address] [place] [address] Lymphocytes (Bld) [#/Vol] 1.05 10*3/uL Low 1.20-4.00 [facility] Comment on above: Performed By: #### L [id number] ####[facility] (BE[facility]ER)[address] [place] [address] Lymphocytes/100 WBC (Bld) 20.2 % Normal 20.0-45.0 [facility] Comment on above: Performed By: #### L [id number] ####[facility] ([facility] [place] [address] MCH (RBC) [Entitic mass] 30.5 pg Normal 27.0-33.0 [facility] Comment on above: Performed By: #### L [id number] ####[facility] (BE[facility]ER)[address] [place] [address] MCV (RBC) [Entitic vol] 92.8 fL Normal 82.0-98.0 [facility] Comment on above: Performed By: #### L [id number] ####[facility] (BE[facility]ER)[address] [place] [address] Monocytes (Bld) [#/Vol] 0.64 10*3/uL Normal 0.10-1.00 [facility] Comment on above: Performed By: #### L [id number] ####[facility] (BE[facility]ER)[address] [facility] [address] Monocytes/100 WBC (Bld) 12.3 % High 5.0-12.0 [facility] Comment on above: Performed By: #### L [id number] ####[facility] (BEAKER)[address] [place] [address] Neutrophils (Bld) [#/Vol] 3.39 10*3/uL Normal 1.60-7.60 [facility] Comment on above: Performed By: #### L [id number] ####[facility] ([facility])[address] [place] [address] Neutrophils/100 WBC (Bld) 65.4 % Normal 40.0-72.0 [facility] Comment on above: Performed By: #### L [id number] ####[facility] ([facility])[address] [place] [address] NRBC (PER 100 WBCS) BY AUTOMATED COUNT 0.0 % Normal 0.0-0.0 [facility] Comment on above: Performed By: #### L [id number] ####[facility] ([facility])[address] [place] [address] PLATELETS (10*3/UL) IN BLOOD AUTOMATED COUNT 241 10*3/uL Normal 150-400 [facility] Comment on above: Performed By: #### L [id number] ####[facility] ([facility])[address] [place] [address] RBC (Bld) [#/Vol] 3.90 10*6/uL Low 4.20-5.70 [facility] Comment on above: Performed By: #### L [id number] ####[facility] ([facility])[address] [place] [address] WBC (Bld) [#/Vol] 5.19 10*3/uL Normal 4.00-10.60 [facility] Comment on above: Performed By: #### L [id number] ####[facility] ([facility] [place] [address] HEMOGLOBIN A1Con 12-01-2021 Glucose [Mass/Vol] 119.76 mg/dL Normal [facility] Comment on above: Performed By: #### L [id number] ####[facility] ([facility])[address] [place] [address] HbA1c (Bld) [Mass fraction] 5.8 % Normal 4.0-6.0 [facility] Comment on above: Performed By: #### L [id number] ####[facility] ([facility])[address] [place] [address] Hospital Encounteron 022 Hospital Encounter [id number] Sukhdeep Simental 1965 M Date Provider Department Center 12/01/2021 None-None [facility] Family History Problem Relation Age of Onset Dementia Mother Esophageal cancer Father Alcohol abuse Father Family Status - Relation Status Age at Mother Alive Father Normal [facility] MRSA/MSSA DNA NASALon 2021 MRSA DNA Negative Normal Negative, Invalid [facility] Comment on above: Performed By: #### L [id number] #### [facility] ([facility]) [address] [place] [address] MSSA DNA Negative Normal Negative, Invalid [facility] Comment on above: Performed By: #### L [id number] #### [facility] ([facility]) [address] [place] [address] Office Visiton 12-01-2021 Follow-up visit [id number] Sukhdeep Simental 1965 M Date Provider Department Center 12/01/2021 [facility] Family History Problem Relation Age of Onset Dementia Mother Esophageal cancer Father Alcohol abuse Father Family Status - Relation Status Age at Mother Alive Father Level of Service:19713 [place] OFFICE/OUTPATIENT ESTABLISHED MOD MDM 30-39 MIN Reason for Visit and Comments: Pain [136] - Kidney function is better per patient. His surgery was canceled do to abnormal lab results. Normal [facility] PROTIME-INRon 12-01-2021 INR IN PPP BY COAGULATION ASSAY 1.17 High 0.90-1.10 [facility] Comment on above: Result Comment: ACCC [...] CHEST 1995;[id number]. Performed By: #### L [id number] ####[facility])[address] [place] [address] PROTHROMBIN TIME (PT) IN PPP BY COAGULATION ASSAY 14.8 Seconds Normal 12.3-14.8 [facility] Comment on above: Performed By: #### L [id number] ####[facility] (Retrophin)[address] [place] [address] SARS-COV-2 IGG, QUALITATIVEo n 12-01-2021 COVID-19 IGG ANTIBODY Negative Normal Negative [facility] Comment on above: Result Comment: Nega [...] In compliance with this authorization, please visit [email or web address] for more information and to access the [...] for assessing COVID-19 vaccine response. Performed by [facility], [address] [place] [address] [email or web address], Jean-Pierre Garnica MD, PHD, Lab. Director Performed By: #### L [id number] ####[facility] ([facility])[address] [place] [address] TYPE AND SCREENon 12-01-2021 AB SCREEN Negative Normal [facility] Comment on above: Performed By: #### L [id number] ####[facility] BLOOD BANK, ABO group Nom (Bld) A Normal [facility] Comment on above: Performed By: #### L [id number] ####[facility]OD [facility], RH TYPE IN BLOOD Negative Normal [facility] Comment on above: Performed By: #### L [id number] ####[facility] BLOOD [facility], URINALYSISon 12-01-2021 BILIRUBIN, TOTAL PRESENCE IN URINE Negative Normal Negative [facility] Comment on above: Order Comment: 0000 Performed By: #### L [id number] ####[facility] (BEAKER)[address] [facility] [place] [address] Clarity (U) Clear Normal Clear [facility] Comment on above: Order Comment: 0000 Performed By: #### L [id number] ####[facility] (BEAKER)[address] [facility] [place] [address] Color (U) Yellow Normal Yellow, Dark Yellow, Straw [facility] Comment on above: Order Comment: 0000 Performed By: #### L [id number] ####[facility] (BEAKER)[address] [place] [address] Glucose (U) [Mass/Vol] Negative Normal Negative [facility] Comment on above: Order Comment: 0000 Performed By: #### L [id number] ####[facility] (BEAKER)[address] [place] [address] HEMOGLOBIN PRESENCE IN URINE Large Abnormal Negative [facility] Comment on above: Order Comment: 0000 Performed By: #### L [id number] ####[facility] (BEAKER)[address] [place] [address] Ketones Ql (U) Negative Normal Negative [facility] Comment on above: Order Comment: 0000 Performed By: #### L [id number] ####[facility] (BEAKER)[address] [place] [address] LEUKOCYTE ESTERASE PRESENCE IN URINE BY TEST STRIP Negative Normal Negative [facility] Comment on above: Order Comment: 0000 Performed By: #### L [id number] ####[facility] (BEAKER)[address] [place] [address] NITRITE PRESENCE IN URINE Negative Normal Negative [facility] Comment on above: Order Comment: 0000 Performed By: #### L [id number] ####[facility] (BEAKER)[address] [place] [address] pH (U) 7.5 [pH] Normal 5.0-8.0 [facility] Comment on above: Order Comment: 0000 Performed By: #### L [id number] ####[facility] (BEAKER)[address] [place] [address] Protein (U) [Mass/Vol] Negative Normal Negative [facility] Comment on above: Order Comment: 0000 Performed By: #### L [id number] ####[facility] (BEAKER)[address] [place] [address] Specific gravity (U) [Rel density] 1.025 High 1.015-1.020 [facility] Comment on above: Order Comment: 0000 Performed By: #### L [id number] ####[facility] (BEAKER)[address] [place] [address] UROBILINOGEN (EU/DL) IN URINE 0.2 EU/dL Normal Negative [facility] Comment on above: Order Comment: 0000 Performed By: #### L [id number] ####[facility] (BEAKER)[address] [place] [address] URINALYSIS MICROSCOPICon CASTS IN URINE Present Abnormal None Seen [facility] Comment on above: Performed By: #### L [id number] #### [facility] ([facility] [address] [place] [address] CRYSTALS IN URINE Normal [facility] Comment on above: Performed By: #### L [id number] #### [facility] (BEAKER) [address] [place] [address] HYALINE CASTS /LPF IN URINE SEDIMENT BY MICROSCOPY 4 /LPF High <1 [facility] Comment on above: Performed By: #### L [id number] #### [facility] ([facility]) [address] [place] [address] MUCUS (#/HPF) IN URINE SEDIMENT Occasional Normal None Seen, Occasional, Few [facility] Comment on above: Performed By: #### L [id number] #### [facility] ([facility]) [address] [place] [address] RBC (#/HPF) IN URINE SEDIMENT 51-100 Abnormal None Seen [facility] Comment on above: Performed By: #### L [id number] #### [facility] ([facility]) [address] [place] [address] SQUAMOUS EPITHELIAL CELLS (#/HPF) IN URINE SEDIMENT Few Abnormal None Seen, Occasional [facility] Comment on above: Performed By: #### L [id number] #### [facility] ([facility]) [address] [place] [address] WBC (LEUKOCYTE) (#/HPF) IN URINE SEDIMENT 0-2 Abnormal None Seen [facility] Comment on above: Performed By: #### L [id number] #### [facility] (BEAKER) [address] [place] [address] CULTURE URINEon 11-24-2021 CULTURE URINE Culture Observations : NO GROWTH. Normal [facility] Comment on above: Performed By: #### B MP #### [facility] [address] [place], [place] [address] Dr. Hugh Landis PROTEIN ELECTROPHERESIS URIN E RANDOMon 11-17-2021 Albumin, U 33.4 % Normal [facility] Comment on above: Performed By: #### C MP, LIPID, TSH #### [facility] [address] [address] [address] Hugh Landis Alpha-1 Globulin U 4.7 % Normal [facility] Comment on above: Performed By: #### C MP, LIPID, TSH #### [facility] [address] [address] [address] Hugh Landis Alpha-2 Glubulin U 18.6 % Normal [facility] Comment on above: Performed By: #### C MP, LIPID, TSH #### [facility] [address] [address] [address] Hugh Landis Beta Globulin, U 19.9 % Normal [facility] Comment on above: Performed By: #### C MP, LIPID, TSH #### [facility] [address] [address] [address] Hugh Landis Gamma Globulin U 23.4 % Normal [facility] Comment on above: Performed By: #### C MP, LIPID, TSH #### [facility] [address] [address] [address] Hugh Landis M-Tariq, % Not Observed Normal Not Observed [facility] Comment on above: Performed By: #### C MP, LIPID, TSH #### [facility] [address] [place] [address] Dr. Hugh Landis PDF . Normal [facility] Comment on above: Performed By: #### C MP, LIPID, TSH #### [facility] [address] [address] [address] Hugh Lnadis Please note: Comment Normal [facility] Comment on above: Result Comment: Prot ein electrophoresis scan will follow via computer, mail, or doughnut glazier delivery. Performed By: #### C MP, LIPID, TSH #### [facility] [address] [address] [address] Hugh Lanids Protein (U) [Mass/Vol] 4.9 mg/dL Normal Not Estab. [facility] Comment on above: Performed By: #### C MP, LIPID, TSH #### [facility] [address] [place] [address] Dr. Hugh Landis IMMUNOFIXATION(PRINCE),PROTEIN ELEC(PE),QUOCflo 11-16-2021 Albumin [Mass/Vol] 3.4 g/dL Normal 2.9-4.4 [facility] Comment on above: Performed By: #### C MP, LIPID, TSH #### [facility] [address] [place] [address] Dr. Hugh Landis Albumin/Globulin [Mass ratio] 1.0 {ratio} Normal 0.7-1.7 [facility] Comment on above: Performed By: #### C MP, LIPID, TSH #### [facility] [address] [place] [address] Dr. Hugh Landis Zvhnm-2-Eiglecmh 0.2 g/dL Normal 0.0-0.4 [facility] Comment on above: Performed By: #### C MP, LIPID, TSH #### [facility] [address] [place] [address] Dr. Hugh Landis Gmhny-0-Bfrvkrfd 1.1 g/dL Critically high 0.4-1.0 [facility] Comment on above: Performed By: #### C MP, LIPID, TSH #### [facility] [address] [place] [address] Dr. Hugh Landis Beta Globulin 1.0 g/dL Normal 0.7-1.3 [facility] Comment on above: Performed By: #### C MP, LIPID, TSH #### [facility] [address] [place] [address] Dr. Hugh Landis Free Meservey Lt Chains,S 35.7 mg/L Critically high 3.3-19.4 [facility] Comment on above: Performed By: #### C MP, LIPID, TSH #### [facility] [address] [place] [address] Dr. Hugh Landis Free Lambda Lt Chains,S 21.1 mg/L Normal 5.7-26.3 [facility] Comment on above: Performed By: #### C MP, LIPID, TSH #### [facility] [address] [address] [address] Hugh Landis Gamma Globulin 1.2 g/dL Normal 0.4-1.8 [facility] Comment on above: Performed By: #### C MP, LIPID, TSH #### [facility] [address] [address] [address] Hugh Landis Globulin (S) [Mass/Vol] 3.5 g/dL Normal 2.2-3.9 [facility] Comment on above: Performed By: #### C MP, LIPID, TSH #### [facility] [address] [address] [address] Hugh Landis Immunofixation Result, Serum Comment Normal [facility] Comment on above: Result Comment: No m onoclonality detected. Performed By: #### C MP, LIPID, TSH #### [facility] [address] [place] [address] Dr. Hugh Landis Immunoglobulin A, Qn, Serum 228 mg/dL Normal 90-386 [facility] Comment on above: Performed By: #### C MP, LIPID, TSH #### [facility] [address] [place] [address] Dr. Hugh Landis Immunoglobulin G, Qn, Serum 1221 mg/dL Normal 603-1613 [facility] Comment on above: Performed By: #### C MP, LIPID, TSH #### [facility] [address] [place] [address] Dr. Hugh Landis Immunoglobulin M, Qn, Serum 79 mg/dL Normal 20-172 [facility] Comment on above: Performed By: #### C MP, LIPID, TSH #### [facility] [address] [place] [address] Dr. Hugh Landis Meservey/Lambda Ratio, S 1.69 Critically high 0.26-1.65 [facility] Comment on above: Performed By: #### C MP, LIPID, TSH #### [facility] [address] [place] [address] Dr. Hugh aLndis M-Tariq Not Observed Normal Not Observed [facility] Comment on above: Performed By: #### C MP, LIPID, TSH #### [facility] [address] [address] [address] Hugh Landis PDF . Normal [facility] Comment on above: Performed By: #### C MP, LIPID, TSH #### [facility] [address] [place] [address] Dr. Hugh Landis Please note: Comment Normal [facility] Comment on above: Result Comment: Prot ein electrophoresis scan will follow via computer, mail, or doughnut glazier delivery. Performed By: #### C MP, LIPID, TSH #### [facility] [address] [address] [address] Hugh Landis Protein [Mass/Vol] 6.9 g/dL Normal 6.0-8.5 [facility] Comment on above: Performed By: #### C MP, LIPID, TSH #### [facility] [address] [place] [address] Dr. Hugh Landis PROTEIN AND CREA RANDOM UR R ATIOon 11-16-2021 Creatinine, Urine 54.8 mg/dL Normal Not Estab. [facility] Comment on above: Performed By: #### C MP, LIPID, TSH #### [facility] [address] [address] [address] Hugh Landis Protein (U) [Mass/Vol] 4.1 mg/dL Normal Not Estab. [facility] Comment on above: Performed By: #### C MP, LIPID, TSH #### [facility] [address] [place] [address] Dr. Hugh Landis Protein/Creat Ratio 75 mg/g creat Normal 0-200 [facility] Comment on above: Performed By: #### C MP, LIPID, TSH #### [facility] [address] [place] [address] Dr. Hugh Landis PTH INTACTon 11-15-2021 PTH, Intact 39 pg/mL Normal 15-65 [facility] Comment on above: Performed By: #### P T #### [facility] [address] [place] [address] Dr. Hugh Landis UA RANDOM W/MICROSCOPICon BACTERIA NONE SEEN Normal NONE SEEN [facility] Comment on above: Performed By: #### P TT #### [facility] [address] [place] [address] Dr. Hugh Landis Bilirubin Ql (U) Negative Normal NEGATIVE [facility] Comment on above: Performed By: #### P TT #### [facility] [address] [place] [address] Dr. Hugh Landis CAST NONE SEEN Normal NONE SEEN [facility] Comment on above: Performed By: #### P TT #### [facility] [address] [place] [address] Dr. Hugh Landis Clarity (U) CLEAR Normal CLEAR [facility] Comment on above: Performed By: #### P TT #### [facility] [address] [place] [address] Dr. Hugh Landis Color (U) LT. YELLOW Normal YELLOW [facility] Comment on above: Performed By: #### P TT #### [facility] [address] [place] [address] Dr. Hugh Landis Crystals LM Nom (Urine sed) NONE SEEN Normal NONE SEEN [facility] Comment on above: Performed By: #### P TT #### [facility] [address] [place] [address] Dr. Hugh Landis Epithelial cells LM Ql (Urine sed) NONE SEEN Normal NONE SEEN /RARE [facility] Comment on above: Performed By: #### P TT #### [facility] [address] [place] [address] Dr. Hugh Landis Glucose Ql (U) Negative Normal NEGATIVE [facility] Comment on above: Performed By: #### P TT #### [facility] [address] [place] [address] Dr. Hugh Landis Hemoglobin Ql (U) MODERATE Abnormal NEGATIVE [facility] Comment on above: Performed By: #### P TT #### [facility] [address] [place] [address] Dr. Hugh Landis Ketones Ql (U) Negative Normal NEGATIVE [facility] Comment on above: Performed By: #### P TT #### [facility] [address] [place] [address] Dr. Hugh Landis LEUKOCYTES Negative Normal NEGATIVE [facility] Comment on above: Performed By: #### P TT #### [facility] [address] [place] [address] Dr. Hugh Landis MUCOUS NONE SEEN Normal NONE SEEN [facility] Comment on above: Performed By: #### P TT #### [facility] [address] [place] [address] Dr. Hugh Landis Nitrite Ql (U) Negative Normal NEGATIVE [facility] Comment on above: Performed By: #### P TT #### [facility] [address] [place] [address] Dr. Hugh Landis pH (U) 5.5 [pH] Normal 5-9 [facility] Comment on above: Performed By: #### P TT #### [facility] [address] [place] [address] Dr. Hugh Landis RBC 5-10 Abnormal 0-2 [facility] Comment on above: Performed By: #### P TT #### [facility] [address] [place] [address] Dr. Hugh Landis SPEC GRAVITY 1.010 Normal 1.005-<=1.025 [facility] Comment on above: Performed By: #### P TT #### [facility] [address] [place] [address] Dr. Hugh Landis UA PROTEIN Negative Normal NEGATIVE/ TRACE [facility] Comment on above: Performed By: #### P TT #### [facility] [address] [place] [address] Dr. Hugh Landis Urobilinogen Qn (U) 0.2 {Dahiana'U}/dL Normal 0.2 - 1. 0 [facility] Comment on above: Performed By: #### P TT #### [facility] [address] [place] [address] Dr. Hugh Landis WBC 0-2 Abnormal NONE SEEN [facility] Comment on above: Performed By: #### P TT #### [facility] [address] [place] [address] Dr. Hugh Landis URINE T PROTEIN CREAT RATIOo n 11-15-2021 Protein (U) [Mass/Vol] 10.0 mg/dL Normal <=12.0 [facility] Comment on above: Performed By: #### B MP #### [facility] [address] [place] [address] Dr. Hugh Landis UR PROT CREAT RAT 0.18 Normal [facility] Comment on above: Performed By: #### B MP #### [facility] [address] [place] [address] Dr. Hugh Landis URINE CREAT 57.11 mg/dL Normal 20.00-300.00 [facility] Comment on above: Performed By: #### B MP #### [facility] [address] [place] [address] Dr. Hugh Landis FERRITINon 11-14-2021 Ferritin [Mass/Vol] 95.0 ng/mL Normal 26.0-388.0 [facility] Comment on above: Performed By: #### C MP, LIPID, TSH #### [facility] [address] [place] [address] Dr. Hugh Landis HEMOGRAM AND PLATELon 2021 Hematocrit (Bld) [Volume fraction] 35.7 % Critically low 42.0-54.0 [facility] Comment on above: Performed By: #### U TOMAS, TSH, CMP, LIPID, T7 #### [facility] [address] [place] [address] Dr. Hugh Landis Hemoglobin (Bld) [Mass/Vol] 11.5 g/dL Critically low 14.0-18.0 [facility] Comment on above: Performed By: #### U TOMAS, TSH, CMP, LIPID, T7 #### [facility] [address] [place] [address] Dr. Hugh Landis MCH (RBC) [Entitic mass] 30.3 pg Normal 25.9-34.0 [facility] Comment on above: Performed By: #### U TOMAS, TSH, CMP, LIPID, T7 #### [facility] [address] [place] [address] Dr. Hugh Landis MCHC (RBC) [Mass/Vol] 32.2 g/dL Normal 29.9-35.2 [facility] Comment on above: Performed By: #### U TOMAS, TSH, CMP, LIPID, T7 #### [facility] [address] [address] [address] Hugh Landis MCV (RBC) [Entitic vol] 93.9 fL Normal 80.0-94.0 [facility] Comment on above: Performed By: #### U TOMAS, TSH, CMP, LIPID, T7 #### [facility] [address] [address] [address] Hugh Landis PLT 254 103/ul Normal 150-450 [facility] Comment on above: Performed By: #### U TOMAS, TSH, CMP, LIPID, T7 #### [facility] [address] [address] [address] Hugh Landis RBC 3.80 106/ul Critically low 4.70-6.10 [facility] Comment on above: Performed By: #### U TOMAS, TSH, CMP, LIPID, T7 #### [facility] [address] [address] [address] Hugh Landis WBC 6.4 103/ul Normal 4.0-11.0 [facility] Comment on above: Performed By: #### U TOMAS, TSH, CMP, LIPID, T7 #### [facility] [address] [place] [address] Dr. Hugh Landis IRON AND TIBCon 11-14-2021 % SATURATION 27.6 % Normal [facility] Comment on above: Performed By: #### C MP, LIPID, TSH #### [facility] [address] [address] [address] Hugh Landis Iron [Mass/Vol] 68.0 ug/dL Normal 65.0-175.0 [facility] Comment on above: Performed By: #### C MP, LIPID, TSH #### [facility] [address] [address] [address] Hugh Landis TIBC DIRECT 246.0 ug/dL Critically low 250.0-450.0 [facility] Comment on above: Performed By: #### C MP, LIPID, TSH #### [facility] [address] [address] [address] Hugh Landis MAGNESIUMon 11-14-2021 Magnesium [Mass/Vol] 1.8 mg/dL Normal 1.8-2.4 [facility] Comment on above: Performed By: #### U TOMAS, TSH, CMP, LIPID, T7 #### [facility] [address] [address] [address] Hugh Landis RENAL FUNCTION PANELon 11-14 Albumin [Mass/Vol] 3.4 g/dL Normal 3.4-5.0 [facility] Comment on above: Performed By: #### U TOMAS, TSH, CMP, LIPID, T7 #### [facility] [address] [address] [address] Hugh Landis Calcium [Mass/Vol] 9.1 mg/dL Normal 8.5-10.1 [facility] Comment on above: Performed By: #### U TOMAS, TSH, CMP, LIPID, T7 #### [facility] [address] [address] [address] Hugh Landis Chloride [Moles/Vol] 105 mmol/L Normal 98-107 [facility] Comment on above: Performed By: #### U TOMAS, TSH, CMP, LIPID, T7 #### [facility] [address] [address] [address] Hugh Landis CO2 [Moles/Vol] 29.2 mmol/L Normal 21.0-32.0 [facility] Comment on above: Performed By: #### U TOMAS, TSH, CMP, LIPID, T7 #### [facility] [address] [address] [address] Hugh Landis Creatinine [Mass/Vol] 1.62 mg/dL Critically high 0.70-1.30 [facility] Comment on above: Performed By: #### U TOMAS, TSH, CMP, LIPID, T7 #### [facility] [address] [address] [address] Hugh Landis EGFR-AF [place] 53 mL/min/1.73m2 Critically low >=60 [facility] Comment on above: Performed By: #### U TOMAS, TSH, CMP, LIPID, T7 #### [facility] [address] [address] [address] Hugh Landis EGFR-NON AF [place] 44 mL/min/1.73m2 Critically low >=60 [facility] Comment on above: Performed By: #### U TOMAS, TSH, CMP, LIPID, T7 #### [facility] [address] [address] [address] Hugh Landis Glucose [Mass/Vol] 136 mg/dL Critically high 74-106 [facility] Comment on above: Performed By: #### U TOMAS, TSH, CMP, LIPID, T7 #### [facility] [address] [address] [address] Hugh Landis Phosphate [Mass/Vol] 2.8 mg/dL Normal 2.6-4.7 [facility] Comment on above: Performed By: #### U TOMAS, TSH, CMP, LIPID, T7 #### [facility] [address] [place] [address] Dr. Hugh Landis Potassium [Moles/Vol] 3.1 mmol/L Critically low 3.5-5.1 [facility] Comment on above: Performed By: #### U TOMAS, TSH, CMP, LIPID, T7 #### [facility] [address] [address] [address] Hugh Landis Sodium [Moles/Vol] 141 mmol/L Normal 136-145 [facility] Comment on above: Performed By: #### U TOMAS, TSH, CMP, LIPID, T7 #### [facility] [address] [address] [address] Hugh Landis Urea nitrogen [Mass/Vol] 19.0 mg/dL Critically high 7.0-18.0 [facility] Comment on above: Performed By: #### U TOMAS, TSH, CMP, LIPID, T7 #### [facility] [address] [place] [address] Dr. Hugh Landis URIC ACID SERUMon 11-14-2021 Urate [Mass/Vol] 8.7 mg/dL Critically high 3.5-7.2 [facility] Comment on above: Performed By: #### U TOMAS, TSH, CMP, LIPID, T7 #### [facility] [address] [address] [address] Hugh Landis VIT B12 AND FOLATEon Cobalamin (Vitamin B12) [Mass/Vol] 373.0 pg/mL Normal 193.0-986.0 [facility] Comment on above: Performed By: #### U TOMAS, TSH, CMP, LIPID, T7 #### [facility] [address] [place], [place] [address] Dr. Hugh Landis FOLATE 14.00 ng/mL Normal 8.60-58.90 [facility] Comment on above: Performed By: #### U TOMAS, TSH, CMP, LIPID, T7 #### [facility] [address] [address] [address] Hugh Landis VITAMIN D 25 OHon 11-14-2021 VIT D 25-OH 33.8 ng/mL Normal [facility] Comment on above: Performed By: #### U TOMAS, TSH, CMP, LIPID, T7 #### [facility] [address] [id number] Hugh Landis VIT D RANGES SEE BELOW Normal [facility] Comment on above: Result Comment: <20 ng/mL Vit D deficient 20 - <30 ng/mL Vit D insufficient 30 - 100 ng/mL Vit D sufficient >100 ng/mL Potential Toxicity Performed By: #### U TOMAS, TSH, CMP, LIPID, T7 #### [facility] [address] [address] [address] Hugh Landis US KIDNEYS BLADDERon 022 [...] by: AUSTIN LARIOS Date: 2021-11-01 16:44 Normal [facility] XR CHEST 2 Von 11-01-2021 XR CHEST [...] by: OBIE TSE Date: 2021-11-01 06:51 Normal [facility] NM LUNG VENT_PERFon 11-01-19 22 NM LUNG VENT_PERF EXAM: NM LUNG VENT_PERF HISTORY: Dyspnea COMPARISON: Chest x-ray 10/31/2021 TECHNIQUE: 6.1 mCi technetium MAA. 24.9 mCi technetium DTPA. FINDINGS: Perfusion images demonstrate no segmental perfusion defects to suggest acute pulmonary embolism Ventilation images are normal without ventilation defects. IMPRESSION: Normal ventilation/perfusion scan Electronically authenticated by: BARBARA SCHRADER Date: 2021-10-31 12:35 Normal [facility] PROF CHEM 8 (BAS METB)on Anion gap [Moles/Vol] 17.5 mmol/L Normal [facility] Comment on above: Performed By: #### B MP #### [facility] [address] [address] [address] Hugh Landis Calcium [Mass/Vol] 9.4 mg/dL Normal 8.5-10.1 [facility] Comment on above: Performed By: #### B MP #### [facility] [address] [address] [address] Hugh Landis Chloride [Moles/Vol] 100 mmol/L Normal 98-107 [facility] Comment on above: Performed By: #### B MP #### [facility] [address] [address] [address] Hugh Landis CO2 [Moles/Vol] 22.8 mmol/L Normal 21.0-32.0 [facility] Comment on above: Performed By: #### B MP #### [facility] [address] [address] [address] Hugh Landis Creatinine [Mass/Vol] 2.69 mg/dL Critically high 0.70-1.30 [facility] Comment on above: Performed By: #### B MP #### [facility] [address] [address] [address] Hugh Landis EGFR-AF [place] 30 mL/min/1.73m2 Critically low >=60 [facility] Comment on above: Performed By: #### B MP #### [facility] [address] [address] [address] Hugh Landis EGFR-NON AF [place] 24 mL/min/1.73m2 Critically low >=60 [facility] Comment on above: Performed By: #### B MP #### [facility] [address] [address] [address] Hugh Landis Glucose [Mass/Vol] 117 mg/dL Critically high 74-106 [facility] Comment on above: Performed By: #### B MP #### [facility] [address] [address] [address] Hugh Landis Potassium [Moles/Vol] 4.3 mmol/L Normal 3.5-5.1 [facility] Comment on above: Performed By: #### B MP #### [facility] [address] [address] [address] Hugh Landis Sodium [Moles/Vol] 136 mmol/L Normal 136-145 [facility] Comment on above: Performed By: #### B MP #### [facility] [address] [address] [address] Hugh Landis Urea nitrogen [Mass/Vol] 41.0 mg/dL Critically high 7.0-18.0 [facility] Comment on above: Performed By: #### B MP #### [facility] [address] [place] [address] Dr. Hugh Landis Urea nitrogen/Creatinine [Mass ratio] 15.2 mg/mg Normal [facility] Comment on above: Performed By: #### B MP #### [facility] [address] [place] [address] Dr. Hugh Landis CBC AUTO DIFFon 10-16-2021 BASO # 0.0 103/ul Normal 0.0-0.1 [facility] Comment on above: Performed By: #### P T #### [facility] [address] [place] [address] Dr. Hugh Landis Basophils/100 WBC (Bld) 0.6 % Normal 0.2-2.0 [facility] Comment on above: Performed By: #### P T #### [facility] [address] [place] [address] Dr. Hugh Landis EO # 0.2 103/ul Normal 0.0-0.7 [facility] Comment on above: Performed By: #### P T #### [facility] [address] [place] [address] Dr. Hugh Landis Eosinophils/100 WBC (Bld) 2.3 % Normal 0.9-7.0 [facility] Comment on above: Performed By: #### P T #### [facility] [address] [place] [address] Dr. Hugh Landis Erythrocyte distribution width (RBC) [Ratio] 12.7 % Normal 11.0-15.0 [facility] Comment on above: Performed By: #### P T #### [facility] [address] [place] [address] Dr. Hugh Landis Hematocrit (Bld) [Volume fraction] 36.2 % Critically low 42.0-54.0 [facility] Comment on above: Performed By: #### P T #### [facility] [address] [place] [address] Dr. Hugh Landis Hemoglobin (Bld) [Mass/Vol] 11.5 g/dL Critically low 14.0-18.0 [facility] Comment on above: Performed By: #### P T #### [facility] [address] [place] [address] Dr. Hugh Landis IG # 0.02 10e3/ul Normal 0.00-0.03 [facility] Comment on above: Performed By: #### P T #### [facility] [address] [place] [address] Dr. Hugh Landis IG % 0.3 % Normal 0.0-0.5 [facility] Comment on above: Performed By: #### P T #### [facility] [address] [place] [address] Dr. Hugh Landis LYMPH # 1.4 103/ul Normal 1.2-3.8 [facility] Comment on above: Performed By: #### P T #### [facility] [address] [place] [address] Dr. Hugh Landis Lymphocytes/100 WBC (Bld) 21.3 % Normal 20.5-60.0 [facility] Comment on above: Performed By: #### P T #### [facility] [address] [place] [address] Dr. Hugh Landis MANUAL DIFF REQ NO Normal [facility] Comment on above: Performed By: #### P T #### [facility] [address] [place] [address] Dr. Hugh Landis MCH (RBC) [Entitic mass] 29.6 pg Normal 25.9-34.0 [facility] Comment on above: Performed By: #### P T #### [facility] [address] [place] [address] Dr. Hugh Landis MCHC (RBC) [Mass/Vol] 31.8 g/dL Normal 29.9-35.2 [facility] Comment on above: Performed By: #### P T #### [facility] [address] [place] [address] Dr. Hugh Landis MCV (RBC) [Entitic vol] 93.1 fL Normal 80.0-94.0 [facility] Comment on above: Performed By: #### P T #### [facility] [address] [place] [address] Dr. Hugh Landis MONO # 0.8 103/ul Normal 0.3-0.8 [facility] Comment on above: Performed By: #### P T #### [facility] [address] [place] [address] Dr. Hugh Landis Monocytes/100 WBC (Bld) 11.5 % Normal 1.7-12.0 [facility] Comment on above: Performed By: #### P T #### [facility] [address] [place] [address] Dr. Hugh Landis NEUT # 4.2 103/ul Normal 1.4-6.5 [facility] Comment on above: Performed By: #### P T #### [facility] [address] [place] [address] Dr. Hugh Landis Neutrophils/100 WBC (Bld) 64.0 % Normal 43.0-75.0 [facility] Comment on above: Performed By: #### P T #### [facility] [address] [place] [address] Dr. Hugh Landis Platelet mean volume (Bld) [Entitic vol] 9.2 fL Critically low 9.5-13.5 [facility] Comment on above: Performed By: #### P T #### [facility] [address] [place] [address] Dr. Hugh Landsi PLT 241 103/ul Normal 150-450 [facility] Comment on above: Performed By: #### P T #### [facility] [address] [place] [address] Dr. Hugh Landis RBC 3.89 106/ul Critically low 4.70-6.10 [facility] Comment on above: Performed By: #### P T #### [facility] [address] [place] [address] Dr. Hugh Landis WBC 6.5 103/ul Normal 4.0-11.0 [facility] Comment on above: Performed By: #### P T #### [facility] [address] [place] [address] Dr. Hugh Landis [facility] SARS-CoV-2 (COVID-19) RNA MUKUL+probe Ql (Unsp spec) Not detected Normal NOT DETECTED [facility] Comment on above: Result Comment: This test is not yet approved or cleared by the [place] FDA. When there are no FDA-approved or cleared tests available, and other criteria are met, FDA can make tests available under an emergency access mechanism called an Emergency Use Authorization (EUA). The EUA for this test is supported by the [employer] Advisor of Health and Human Service's (HHS's) declaration [...] U TOMAS, TSH, CMP, LIPID, T7 #### [facility] [address] [place] [address] Dr. Hugh Landis PROF CHEM 8 (BAS METB)on Anion gap [Moles/Vol] 16.3 mmol/L Normal [facility] Comment on above: Performed By: #### C MP, LIPID, TSH #### [facility] [address] [address] [address] Hugh Landis Calcium [Mass/Vol] 9.6 mg/dL Normal 8.5-10.1 [facility] Comment on above: Performed By: #### C MP, LIPID, TSH #### [facility] [address] [address] [address] Hugh Landis Chloride [Moles/Vol] 103 mmol/L Normal 98-107 [facility] Comment on above: Performed By: #### C MP, LIPID, TSH #### [facility] [address] [address] [address] Hugh Landis CO2 [Moles/Vol] 21.9 mmol/L Normal 21.0-32.0 [facility] Comment on above: Performed By: #### C MP, LIPID, TSH #### [facility] [address] [address] [address] Huhg Landis Creatinine [Mass/Vol] 3.58 mg/dL Critically high 0.70-1.30 [facility] Comment on above: Performed By: #### C MP, LIPID, TSH #### [facility] [address] [address] [address] Hugh Landis EGFR-AF [place] 21 mL/min/1.73m2 Critically low >=60 [facility] Comment on above: Performed By: #### C MP, LIPID, TSH #### [facility] [address] [place] [address] Dr. Hugh Landis EGFR-NON AF [place] 18 mL/min/1.73m2 Critically low >=60 [facility] Comment on above: Performed By: #### C MP, LIPID, TSH #### [facility] [address] [address] [address] Hugh Landis Glucose [Mass/Vol] 115 mg/dL Critically high 74-106 [facility] Comment on above: Performed By: #### C MP, LIPID, TSH #### [facility] [address] [place] [address] Dr. Hugh Landis Potassium [Moles/Vol] 5.2 mmol/L Critically high 3.5-5.1 [facility] Comment on above: Performed By: #### C MP, LIPID, TSH #### [facility] [address] [address] [address] Hugh Landis Sodium [Moles/Vol] 136 mmol/L Normal 136-145 [facility] Comment on above: Performed By: #### C MP, LIPID, TSH #### [facility] [address] [place] [address] Dr. Hugh Landis Urea nitrogen [Mass/Vol] 54.0 mg/dL Critically high 7.0-18.0 [facility] Comment on above: Performed By: #### C MP, LIPID, TSH #### [facility] [address] [place] [address] Dr. Hugh Landis Urea nitrogen/Creatinine [Mass ratio] 15.1 mg/mg Normal [facility] Comment on above: Performed By: #### C MP, LIPID, TSH #### [facility] [address] [place] [address] Dr. Hugh Landis MRSA COLONIZATION SCREENING CULTUREon 10-09-2021 MRSA Screening Culture Negative Normal [facility] Comment on above: Performed By: #### C MP, LIPID, TSH #### [facility] [address] [place] [address] Dr. Hugh Landis CBC AUTO DIFFon 10-06-2021 BASO # 0.0 103/ul Normal 0.0-0.1 [facility] Comment on above: Performed By: #### U TOMAS, TSH, CMP, LIPID, T7 #### [facility] [address] [place] [address] Dr. Hugh Landis Basophils/100 WBC (Bld) 0.3 % Normal 0.2-2.0 [facility] Comment on above: Performed By: #### U TOMAS, TSH, CMP, LIPID, T7 #### [facility] [address] [place] [address] Dr. Hugh Landis EO # 0.1 103/ul Normal 0.0-0.7 [facility] Comment on above: Performed By: #### U TOMAS, TSH, CMP, LIPID, T7 #### [facility] [address] [place] [address] Dr. Hugh Landis Eosinophils/100 WBC (Bld) 2.3 % Normal 0.9-7.0 [facility] Comment on above: Performed By: #### U TOMAS, TSH, CMP, LIPID, T7 #### [facility] [address] [place] [address] Dr. Hugh Landis Erythrocyte distribution width (RBC) [Ratio] 13.3 % Normal 11.0-15.0 [facility] Comment on above: Performed By: #### U TOMAS, TSH, CMP, LIPID, T7 #### [facility] [address] [address] [address] Hugh Landis Hematocrit (Bld) [Volume fraction] 36.5 % Critically low 42.0-54.0 [facility] Comment on above: Performed By: #### U TOMAS, TSH, CMP, LIPID, T7 #### [facility] [address] [address] [address] Hugh Landis Hemoglobin (Bld) [Mass/Vol] 11.7 g/dL Critically low 14.0-18.0 [facility] Comment on above: Performed By: #### U TOMAS, TSH, CMP, LIPID, T7 #### [facility] [address] [address] [address] Hugh Landis IG # 0.02 10e3/ul Normal 0.00-0.03 [facility] Comment on above: Performed By: #### U TOMAS, TSH, CMP, LIPID, T7 #### [facility] [address] [address] [address] Hugh Landis IG % 0.3 % Normal 0.0-0.5 [facility] Comment on above: Performed By: #### U TOMAS, TSH, CMP, LIPID, T7 #### [facility] [address] [address] [address] Hugh Landis LYMPH # 1.3 103/ul Normal 1.2-3.8 [facility] Comment on above: Performed By: #### U TOMAS, TSH, CMP, LIPID, T7 #### [facility] [address] [address] [address] Hugh Landis Lymphocytes/100 WBC (Bld) 21.9 % Normal 20.5-60.0 [facility] Comment on above: Performed By: #### U TOMAS, TSH, CMP, LIPID, T7 #### [facility] [address] [address] [address] Hugh Landis MANUAL DIFF REQ NO Normal [facility] Comment on above: Performed By: #### U TOMAS, TSH, CMP, LIPID, T7 #### [facility] [address] [address] [address] Hugh Landis MCH (RBC) [Entitic mass] 29.7 pg Normal 25.9-34.0 [facility] Comment on above: Performed By: #### U TOMAS, TSH, CMP, LIPID, T7 #### [facility] [address] [place] [address] Dr. Hugh Landis MCHC (RBC) [Mass/Vol] 32.1 g/dL Normal 29.9-35.2 [facility] Comment on above: Performed By: #### U TOMAS, TSH, CMP, LIPID, T7 #### [facility] [address] [place] [address] Dr. Hugh Landis MCV (RBC) [Entitic vol] 92.6 fL Normal 80.0-94.0 [facility] Comment on above: Performed By: #### U TOMAS, TSH, CMP, LIPID, T7 #### [facility] [address] [place] [address] Dr. Hugh Landis MONO # 0.7 103/ul Normal 0.3-0.8 [facility] Comment on above: Performed By: #### U TOMAS, TSH, CMP, LIPID, T7 #### [facility] [address] [place] [address] Dr. Hugh Landis Monocytes/100 WBC (Bld) 11.3 % Normal 1.7-12.0 [facility] Comment on above: Performed By: #### U TOMAS, TSH, CMP, LIPID, T7 #### [facility] [address] [place] [address] Dr. Hugh Landis NEUT # 3.7 103/ul Normal 1.4-6.5 [facility] Comment on above: Performed By: #### U TOMAS, TSH, CMP, LIPID, T7 #### [facility] [address] [place] [address] Dr. Hugh Landis Neutrophils/100 WBC (Bld) 63.9 % Normal 43.0-75.0 [facility] Comment on above: Performed By: #### U TOMAS, TSH, CMP, LIPID, T7 #### [facility] [address] [address] [address] Hugh Landis Platelet mean volume (Bld) [Entitic vol] 8.9 fL Critically low 9.5-13.5 [facility] Comment on above: Performed By: #### U TOMAS, TSH, CMP, LIPID, T7 #### [facility] [address] [address] [address] Hugh Landis PLT 257 103/ul Normal 150-450 [facility] Comment on above: Performed By: #### U TOMAS, TSH, CMP, LIPID, T7 #### [facility] [address] [address] [address] Hugh Landis RBC 3.94 106/ul Critically low 4.70-6.10 [facility] Comment on above: Performed By: #### U TOMAS, TSH, CMP, LIPID, T7 #### [facility] [address] [address] [address] Hugh Landis WBC 5.8 103/ul Normal 4.0-11.0 [facility] Comment on above: Performed By: #### U TOMAS, TSH, CMP, LIPID, T7 #### [facility] [address] [address] [address] Hugh Landis GLYCOHEMOGLOBIN A1Con 2021 ADA RECOMMENDATION SEE BELOW Normal [facility] Comment on above: Result Comment: ADA RECOMMENDED LIMIT 4.0 - 6.0 ADA THERAPEUTIC TARGET < 7.0 ACTION SUGGESTED > 7.0 Performed By: #### U TOMAS, TSH, CMP, LIPID, T7 #### [facility] [address] [address] [address] Hugh Landis Glucose [Mass/Vol] 134 mg/dL Normal [facility] Comment on above: Performed By: #### U TOMAS, TSH, CMP, LIPID, T7 #### [facility] [address] [address] [address] Hugh Landis HbA1c (Bld) [Mass fraction] 6.3 % Critically high 4.5-6.2 [facility] Comment on above: Performed By: #### U TOMAS, TSH, CMP, LIPID, T7 #### [facility] [address] [address] [address] Hugh Landis PROF CHEM 8 (BAS METB)on Anion gap [Moles/Vol] 17.6 mmol/L Normal [facility] Comment on above: Performed By: #### C MP, LIPID, TSH #### [facility] [address] [place] [address] Dr. Hugh Landis Calcium [Mass/Vol] 9.5 mg/dL Normal 8.5-10.1 [facility] Comment on above: Performed By: #### C MP, LIPID, TSH #### [facility] [address] [address] [address] Hugh Landis Chloride [Moles/Vol] 102 mmol/L Normal 98-107 [facility] Comment on above: Performed By: #### C MP, LIPID, TSH #### [facility] [address] [place] [address] Dr. Hugh Landis CO2 [Moles/Vol] 22.2 mmol/L Normal 21.0-32.0 [facility] Comment on above: Performed By: #### C MP, LIPID, TSH #### [facility] [address] [place] [address] Dr. Hugh Landis Creatinine [Mass/Vol] 2.94 mg/dL Critically high 0.70-1.30 [facility] Comment on above: Performed By: #### C MP, LIPID, TSH #### [facility] [address] [place] [address] Dr. Hugh Landis EGFR-AF [place] 27 mL/min/1.73m2 Critically low >=60 [facility] Comment on above: Performed By: #### C MP, LIPID, TSH #### [facility] [address] [place] [address] Dr. Hugh Landis EGFR-NON AF [place] 22 mL/min/1.73m2 Critically low >=60 [facility] Comment on above: Performed By: #### C MP, LIPID, TSH #### [facility] [address] [address] [address] Hugh Landis Glucose [Mass/Vol] 234 mg/dL Critically high 74-106 T [facility] Comment on above: Performed By: #### C MP, LIPID, TSH #### [facility] [address] [address] [address] Hugh Landis Potassium [Moles/Vol] 5.8 mmol/L Critically high 3.5-5.1 [facility] Comment on above: Performed By: #### C MP, LIPID, TSH #### [facility] [address] [address] [address] Hugh Landis Sodium [Moles/Vol] 136 mmol/L Normal 136-145 [facility] Comment on above: Performed By: #### C MP, LIPID, TSH #### [facility] [address] [address] [address] Hugh Landis Urea nitrogen [Mass/Vol] 46.0 mg/dL Critically high 7.0-18.0 [facility] Comment on above: Performed By: #### C MP, LIPID, TSH #### [facility] [address] [address] [address] Hugh Landis Urea nitrogen/Creatinine [Mass ratio] 15.6 mg/mg Normal [facility] Comment on above: Performed By: #### C MP, LIPID, TSH #### [facility] [address] [address] [address] Hugh Landis PROTIMEon 10-06-2021 INR Coag (PPP) [Relative time] 1.22 {INR} Normal [facility] Comment on above: Performed By: #### U TOMAS, TSH, CMP, LIPID, T7 #### [facility] [address] [address] [address] Hugh Landis INR GUIDELINES SEE BELOW Normal [facility] Comment on above: Result Comment: VIC RED INR: 2.0 - 3.0 CONDITIONS NOT LISTED BELOW 2.5 - 3.5 FOR PROSTHETIC HEART VALVE REPLACEMENT 2.5 - 3.5 RECURRENT THROMBOSIS Performed By: #### U TOMAS, TSH, CMP, LIPID, T7 #### [facility] [address] [address] [address] Hugh Landis PT Coag (PPP) [Time] 13.0 s Critically high 9.0-11.6 [facility] Comment on above: Performed By: #### U TOMAS, TSH, CMP, LIPID, T7 #### [facility] [address] [place] [address] Dr. Hugh Landis PTTon 10-06-2021 aPTT Coag (Bld) [Time] 30.6 s Normal 22.3-36.2 [facility] Comment on above: Performed By: #### U TOMAS, TSH, CMP, LIPID, T7 #### [facility] [address] [place] [address] Dr. Hugh Landis UA RANDOMon 10-06-2021 Bilirubin Ql (U) Negative Normal NEGATIVE [facility] Comment on above: Performed By: #### C MP, LIPID, TSH #### [facility] [address] [place] [address] Dr. Hugh Landis Clarity (U) CLEAR Normal CLEAR [facility] Comment on above: Performed By: #### C MP, LIPID, TSH #### [facility] [address] [place] [address] Dr. Hugh Landis Color (U) LT. YELLOW Normal YELLOW [facility] Comment on above: Performed By: #### C MP, LIPID, TSH #### [facility] [address] [place] [address] Dr. Hugh Landis Glucose Ql (U) Negative Normal NEGATIVE [facility] Comment on above: Performed By: #### C MP, LIPID, TSH #### [facility] [address] [place] [address] Dr. Hugh Landis Hemoglobin Ql (U) Negative Normal NEGATIVE [facility] Comment on above: Performed By: #### C MP, LIPID, TSH #### [facility] [address] [place] [address] Dr. Hugh Landis Ketones Ql (U) Negative Normal NEGATIVE [facility] Comment on above: Performed By: #### C MP, LIPID, TSH #### [facility] [address] [place] [address] Dr. Hugh Landis LEUKOCYTES Negative Normal NEGATIVE [facility] Comment on above: Performed By: #### C MP, LIPID, TSH #### [facility] [address] [place] [address] Dr. Hugh Landis Nitrite Ql (U) Negative Normal NEGATIVE [facility] Comment on above: Performed By: #### C MP, LIPID, TSH #### [facility] [address] [place] [address] Dr. Hugh Landis pH (U) 5.5 [pH] Normal 5-9 [facility] Comment on above: Performed By: #### C MP, LIPID, TSH #### [facility] [address] [place] [address] Dr. Hugh Landis SPEC GRAVITY 1.020 Normal 1.005-<=1.025 [facility] Comment on above: Performed By: #### C MP, LIPID, TSH #### [facility] [address] [place] [address] Dr. Hugh Landis UA PROTEIN Negative Normal NEGATIVE/ TRACE [facility] Comment on above: Performed By: #### C MP, LIPID, TSH #### [facility] [address] [place] [address] Dr. Hugh Landis Urobilinogen Qn (U) 0.2 {Dahiana'U}/dL Normal 0.2 - 1. 0 [facility] Comment on above: Performed By: #### C MP, LIPID, TSH #### [facility] [address] [place] [address] Dr. Hugh Landis CBC AUTO DIFFon 09-25-2021 BASO # 0.0 103/ul Normal 0.0-0.1 [facility] Comment on above: Performed By: #### U TOMAS, TSH, CMP, LIPID, T7 #### [facility] [address] [place] [address] Dr. Hugh Landis Basophils/100 WBC (Bld) 0.4 % Normal 0.2-2.0 [facility] Comment on above: Performed By: #### U TOMAS, TSH, CMP, LIPID, T7 #### [facility] [address] [address] [address] Hugh Landis EO # 0.1 103/ul Normal 0.0-0.7 [facility] Comment on above: Performed By: #### U TOMAS, TSH, CMP, LIPID, T7 #### [facility] [address] [place] [address] Dr. Hugh Landis Eosinophils/100 WBC (Bld) 1.7 % Normal 0.9-7.0 [facility] Comment on above: Performed By: #### U TOMAS, TSH, CMP, LIPID, T7 #### [facility] [address] [place] [address] Dr. Hugh Landis Erythrocyte distribution width (RBC) [Ratio] 13.5 % Normal 11.0-15.0 [facility] Comment on above: Performed By: #### U TOMAS, TSH, CMP, LIPID, T7 #### [facility] [address] [place] [address] Dr. Hugh Landis Hematocrit (Bld) [Volume fraction] 36.0 % Critically low 42.0-54.0 [facility] Comment on above: Performed By: #### U TOMAS, TSH, CMP, LIPID, T7 #### [facility] [address] [place] [address] Dr. Hugh Landis Hemoglobin (Bld) [Mass/Vol] 11.7 g/dL Critically low 14.0-18.0 [facility] Comment on above: Performed By: #### U TOMAS, TSH, CMP, LIPID, T7 #### [facility] [address] [place] [address] Dr. Hugh Landis IG # 0.02 10e3/ul Normal 0.00-0.03 [facility] Comment on above: Performed By: #### U TOMAS, TSH, CMP, LIPID, T7 #### [facility] [address] [place] [address] Dr. Hugh aLndis IG % 0.3 % Normal 0.0-0.5 [facility] Comment on above: Performed By: #### U TOMAS, TSH, CMP, LIPID, T7 #### [facility] [address] [place] [address] Dr. Hugh Landis LYMPH # 1.3 103/ul Normal 1.2-3.8 [facility] Comment on above: Performed By: #### U TOMAS, TSH, CMP, LIPID, T7 #### [facility] [address] [place] [address] Dr. Hugh Landis Lymphocytes/100 WBC (Bld) 18.3 % Critically low 20.5-60.0 [facility] Comment on above: Performed By: #### U TOMAS, TSH, CMP, LIPID, T7 #### [facility] [address] [place] [address] Dr. Hugh Landis MANUAL DIFF REQ NO Normal [facility] Comment on above: Performed By: #### U TOMAS, TSH, CMP, LIPID, T7 #### [facility] [address] [place] [address] Dr. Hugh Landis MCH (RBC) [Entitic mass] 29.4 pg Normal 25.9-34.0 [facility] Comment on above: Performed By: #### U TOMAS, TSH, CMP, LIPID, T7 #### [facility] [address] [place] [address] Dr. Hugh Landis MCHC (RBC) [Mass/Vol] 32.5 g/dL Normal 29.9-35.2 [facility] Comment on above: Performed By: #### U TOMAS, TSH, CMP, LIPID, T7 #### [facility] [address] [place] [address] Dr. Hugh Landis MCV (RBC) [Entitic vol] 90.5 fL Normal 80.0-94.0 [facility] Comment on above: Performed By: #### U TOMAS, TSH, CMP, LIPID, T7 #### [facility] [address] [place] [address] Dr. Hugh Landis MONO # 0.6 103/ul Normal 0.3-0.8 [facility] Comment on above: Performed By: #### U TOMAS, TSH, CMP, LIPID, T7 #### [facility] [address] [place] [address] Dr. Hugh Landis Monocytes/100 WBC (Bld) 8.6 % Normal 1.7-12.0 [facility] Comment on above: Performed By: #### U TOMAS, TSH, CMP, LIPID, T7 #### [facility] [address] [address] [address] Hugh Landis NEUT # 4.9 103/ul Normal 1.4-6.5 [facility] Comment on above: Performed By: #### U TOMAS, TSH, CMP, LIPID, T7 #### [facility] [address] [address] [address] Hugh Landis Neutrophils/100 WBC (Bld) 70.7 % Normal 43.0-75.0 [facility] Comment on above: Performed By: #### U TOMAS, TSH, CMP, LIPID, T7 #### [facility] [address] [address] [address] Hugh Landis Platelet mean volume (Bld) [Entitic vol] 8.8 fL Critically low 9.5-13.5 [facility] Comment on above: Performed By: #### U TOMAS, TSH, CMP, LIPID, T7 #### [facility] [address] [address] [address] Hugh Landis PLT 270 103/ul Normal 150-450 [facility] Comment on above: Performed By: #### U TOMAS, TSH, CMP, LIPID, T7 #### [facility] [id number] Hugh Landis RBC 3.98 106/ul Critically low 4.70-6.10 [facility] Comment on above: Performed By: #### U TOMAS, TSH, CMP, LIPID, T7 #### [facility] [id number] Hugh Landis WBC 6.9 103/ul Normal 4.0-11.0 [facility] Comment on above: Performed By: #### U TOMAS, TSH, CMP, LIPID, T7 #### [facility] [address] [address] [address] Hugh Landis CRPon 09-25-2021 CRP [Mass/Vol] mg/L Normal <=1.0 [facility] Comment on above: Performed By: #### P T #### [facility] [address] [place] [address] Dr. Hugh Landis CULTURE BLOODon 09-25-2021 Microscopic examination of blood, culture Culture Observations: NO GROWTH AT 5 DAYS. Normal [facility] Comment on above: Performed By: #### B MP #### [facility] [address] [place] [address] Dr. Hugh Landis Microscopic examination of blood, culture Culture Observations: NO GROWTH AT 5 DAYS. Normal [facility] Comment on above: Performed By: #### B MP #### [facility] [address] [place] [address] Dr. Hugh Landis IRONon 09-25-2021 Iron [Mass/Vol] 62.0 ug/dL Critically low 65.0-175.0 [facility] Comment on above: Performed By: #### B MP #### [facility] [address] [place] [address] Dr. Hugh Landis SED RATE WESTERGREN 2021 SED RATE 102 mm/hr Critically high <=20 [facility] Comment on above: Performed By: #### C MP, LIPID, TSH #### [facility] [address] [place] [address] Dr. Hugh Landis NM BONE IMAGE 3 [...] by: OBIE TSE Date: 2021-09-05 16:15 Normal [facility] CREATININEon 08-25-2021 Creatinine [Mass/Vol] 1.92 mg/dL Critically high 0.70-1.30 [facility] Comment on above: Performed By: #### C MP, LIPID, TSH #### [facility] [address] [address] [address] Hugh Landis EGFR-AF [place] 44 mL/min/1.73m2 Critically low >=60 [facility] Comment on above: Performed By: #### C MP, LIPID, TSH #### [facility] [address] [place], [place] [address] Dr. Hugh Landis EGFR-NON AF [place] 36 mL/min/1.73m2 Critically low >=60 [facility] Comment on above: Performed By: #### C MP, LIPID, TSH #### [facility] [address] [address] [address] Hugh Landis CTA CHEST WO W [...] by: OBIE TSE Date: 2021-08-25 10:16 Normal [facility] CBC AUTO DIFFon 08-18-2021 BASO # 0.0 103/ul Normal 0.0-0.1 [facility] Comment on above: Performed By: #### C MP, LIPID, TSH #### [facility] [address] [place] [address] Dr. Hugh Landis Basophils/100 WBC (Bld) 0.4 % Normal 0.2-2.0 [facility] Comment on above: Performed By: #### C MP, LIPID, TSH #### [facility] [address] [place] [address] Dr. Hugh Landis EO # 0.1 103/ul Normal 0.0-0.7 [facility] Comment on above: Performed By: #### C MP, LIPID, TSH #### [facility] [address] [place] [address] Dr. Hugh Landis Eosinophils/100 WBC (Bld) 1.8 % Normal 0.9-7.0 [facility] Comment on above: Performed By: #### C MP, LIPID, TSH #### [facility] [address] [place] [address] Dr. Hugh Landis Erythrocyte distribution width (RBC) [Ratio] 13.3 % Normal 11.0-15.0 [facility] Comment on above: Performed By: #### C MP, LIPID, TSH #### [facility] [address] [place] [address] Dr. Hugh Landis Hematocrit (Bld) [Volume fraction] 34.7 % Critically low 42.0-54.0 [facility] Comment on above: Performed By: #### C MP, LIPID, TSH #### [facility] [address] [place] [address] Dr. Hugh Landis Hemoglobin (Bld) [Mass/Vol] 11.3 g/dL Critically low 14.0-18.0 [facility] Comment on above: Performed By: #### C MP, LIPID, TSH #### [facility] [address] [place] [address] Dr. Hugh Landis IG # 0.05 10e3/ul Critically high 0.00-0.03 [facility] Comment on above: Performed By: #### C MP, LIPID, TSH #### [facility] [address] [address] [address] Hugh Landis IG % 0.7 % Critically high 0.0-0.5 [facility] Comment on above: Performed By: #### C MP, LIPID, TSH #### [facility] [address] [address] [address] Hugh Landis LYMPH # 1.1 103/ul Critically low 1.2-3.8 [facility] Comment on above: Performed By: #### C MP, LIPID, TSH #### [facility] [address] [address] [address] Hugh Landis Lymphocytes/100 WBC (Bld) 16.0 % Critically low 20.5-60.0 [facility] Comment on above: Performed By: #### C MP, LIPID, TSH #### [facility] [address] [place] [address] Dr. Hugh Landis MANUAL DIFF REQ NO Normal [facility] Comment on above: Performed By: #### C MP, LIPID, TSH #### [facility] [address] [address] [address] Hugh Landis MCH (RBC) [Entitic mass] 29.7 pg Normal 25.9-34.0 [facility] Comment on above: Performed By: #### C MP, LIPID, TSH #### [facility] [address] [place] [address] Dr. Hugh Landis MCHC (RBC) [Mass/Vol] 32.6 g/dL Normal 29.9-35.2 [facility] Comment on above: Performed By: #### C MP, LIPID, TSH #### [facility] [address] [address] [address] Hugh Landis MCV (RBC) [Entitic vol] 91.3 fL Normal 80.0-94.0 [facility] Comment on above: Performed By: #### C MP, LIPID, TSH #### [facility] [address] [address] [address] Hugh Landis MONO # 0.7 103/ul Normal 0.3-0.8 [facility] Comment on above: Performed By: #### C MP, LIPID, TSH #### [facility] [address] [address] [address] Hugh Landis Monocytes/100 WBC (Bld) 9.7 % Normal 1.7-12.0 [facility] Comment on above: Performed By: #### C MP, LIPID, TSH #### [facility] [address] [place] [address] Dr. Hugh Landis NEUT # 4.9 103/ul Normal 1.4-6.5 [facility] Comment on above: Performed By: #### C MP, LIPID, TSH #### [facility] [address] [place] [address] Dr. Hugh Landis Neutrophils/100 WBC (Bld) 71.4 % Normal 43.0-75.0 [facility] Comment on above: Performed By: #### C MP, LIPID, TSH #### [facility] [address] [place] [address] Dr. Hugh Landis Platelet mean volume (Bld) [Entitic vol] 9.0 fL Critically low 9.5-13.5 [facility] Comment on above: Performed By: #### C MP, LIPID, TSH #### [facility] [address] [place] [address] Dr. Hugh Landis PLT 264 103/ul Normal 150-450 [facility] Comment on above: Performed By: #### C MP, LIPID, TSH #### [facility] [address] [place] [address] Dr. Hugh Landis RBC 3.80 106/ul Critically low 4.70-6.10 [facility] Comment on above: Performed By: #### C MP, LIPID, TSH #### [facility] [address] [place] [address] Dr. Hugh Landis WBC 6.8 103/ul Normal 4.0-11.0 [facility] Comment on above: Performed By: #### C MP, LIPID, TSH #### [facility] [address] [place] [address] Dr. Hugh Landis PROF 14(COMP METB)on 06-24-2 022 Albumin [Mass/Vol] 3.5 g/dL Normal 3.4-5.0 [facility] Comment on above: Performed By: #### U TOMAS, TSH, CMP, LIPID, T7 #### [facility] [address] [address] [address] Hugh Landis Albumin/Globulin [Mass ratio] 0.8 {ratio} Normal [facility] Comment on above: Performed By: #### U TOMAS, TSH, CMP, LIPID, T7 #### [facility] [address] [address] [address] Hugh Landis ALP [Catalytic activity/Vol] 63 U/L Normal 46-116 [facility] Comment on above: Performed By: #### U TOMAS, TSH, CMP, LIPID, T7 #### [facility] [address] [address] [address] Hugh Landis ALT [Catalytic activity/Vol] 26 U/L Normal 16-63 [facility] Comment on above: Performed By: #### U TOMAS, TSH, CMP, LIPID, T7 #### [facility] [address] [address] [address] Hugh Landis Anion gap [Moles/Vol] 12.7 mmol/L Normal [facility] Comment on above: Performed By: #### U TOMAS, TSH, CMP, LIPID, T7 #### [facility] [address] [address] [address] Hugh Landis AST [Catalytic activity/Vol] 14 U/L Critically low 15-37 [facility] Comment on above: Performed By: #### U TOMAS, TSH, CMP, LIPID, T7 #### [facility] [address] [address] [address] Hugh Landis Bilirubin [Mass/Vol] 0.3 mg/dL Normal 0.2-1.0 [facility] Comment on above: Performed By: #### U TOMAS, TSH, CMP, LIPID, T7 #### [facility] [address] [address] [address] Hugh Landis Calcium [Mass/Vol] 9.2 mg/dL Normal 8.5-10.1 [facility] Comment on above: Performed By: #### U TOMAS, TSH, CMP, LIPID, T7 #### [facility] [address] [address] [address] Hugh Landis Chloride [Moles/Vol] 105 mmol/L Normal 98-107 [facility] Comment on above: Performed By: #### U TOMAS, TSH, CMP, LIPID, T7 #### [facility] [address] [place] [address] Dr. Hugh Landis CO2 [Moles/Vol] 25.5 mmol/L Normal 21.0-32.0 [facility] Comment on above: Performed By: #### U TOMAS, TSH, CMP, LIPID, T7 #### [facility] [address] [place] [address] Dr. Hugh Landis Creatinine [Mass/Vol] 2.46 mg/dL Critically high 0.70-1.30 [facility] Comment on above: Performed By: #### U TOMAS, TSH, CMP, LIPID, T7 #### [facility] [address] [place] [address] Dr. Hugh Landis EGFR-AF [place] 33 mL/min/1.73m2 Critically low >=60 [facility] Comment on above: Performed By: #### U TOMAS, TSH, CMP, LIPID, T7 #### [facility] [address] [place] [address] Dr. Hugh Landis EGFR-NON AF [place] 27 mL/min/1.73m2 Critically low >=60 [facility] Comment on above: Performed By: #### U TOMAS, TSH, CMP, LIPID, T7 #### [facility] [address] [place] [address] Dr. Hugh Landis Globulin (S) [Mass/Vol] 4.5 g/dL Normal [facility] Comment on above: Performed By: #### U TOMAS, TSH, CMP, LIPID, T7 #### [facility] [address] [place] [address] Dr. Hugh Landis Glucose [Mass/Vol] 119 mg/dL Critically high 74-106 [facility] Comment on above: Performed By: #### U TOMAS, TSH, CMP, LIPID, T7 #### [facility] [address] [address] [address] Hugh Landis Potassium [Moles/Vol] 4.2 mmol/L Normal 3.5-5.1 [facility] Comment on above: Performed By: #### U TOMAS, TSH, CMP, LIPID, T7 #### [facility] [address] [address] [address] Hugh Landis Protein [Mass/Vol] 8.0 g/dL Normal 6.4-8.2 [facility] Comment on above: Performed By: #### U TOMAS, TSH, CMP, LIPID, T7 #### [facility] [address] [place] [address] Dr. Hugh Landis Sodium [Moles/Vol] 139 mmol/L Normal 136-145 [facility] Comment on above: Performed By: #### U TOMAS, TSH, CMP, LIPID, T7 #### [facility] [address] [address] [address] Hugh Landis Urea nitrogen [Mass/Vol] 49.0 mg/dL Critically high 7.0-18.0 [facility] Comment on above: Performed By: #### U TOMAS, TSH, CMP, LIPID, T7 #### [facility] [address] [place] [address] Dr. Hugh Landis Urea nitrogen/Creatinine [Mass ratio] 19.9 mg/mg Normal [facility] Comment on above: Performed By: #### U TOMAS, TSH, CMP, LIPID, T7 #### [facility] [address] [place] [address] Dr. Hugh Landis [facility], [facility] Free Testosterone(Direct ) 5.9 pg/mL Critically low 7.2-24.0 [facility] Comment on above: Result Comment: Perf ormed at: BN Performed By: #### B MP #### [facility] [address] [place] [address] Dr. Hugh Landis Testosterone [Mass/Vol] 392 ng/dL Normal 264-916 [facility] Comment on above: Result Comment: Adul t male reference interval is based on a population of healthy nonobese males (BMI <30) between 19 and 39 years old. Gavi, et.al. JCEM 2017,102;1018-6198. PMID: [id number]. Performed at: CB Performed By: #### B MP #### [facility] [address] [address] [address] Hugh Landis VITAMIN B1 (THIAMINE)on 07-27 Vit. B1, Whole Blood 145.1 nmol/L Normal 66.5-200.0 [facility] Comment on above: Performed By: #### C MP, LIPID, TSH #### [facility] [address] [address] [address] Hugh Landis VITAMIN Aon 08-13-2021 Vitamin A 82.7 ug/dL Critically high 20.1-62.0 [facility] Comment on above: Result Comment: Refe rence [...] Administration. Performed By: #### P T #### [facility] [address] [place] [address] Dr. Hugh Landis ZINC SERUM OR PLASMAon 08-10 Zinc, Plasma or Serum 78 ug/dL Normal 44-115 [facility] Comment on above: Result Comment: Dete ction Limit = 5 Performed By: #### C MP, LIPID, TSH #### [facility] [id number] Hugh Landis FOLATE ([facility])on 2 Folate 12.9 ng/mL Normal >3.0 [facility] Comment on above: Result Comment: A se rum folate concentration of less than 3.1 ng/mL is considered to represent clinical deficiency. Performed By: #### P TT #### [facility] [address] [address] [address] Hugh Landis PTH INTACTon 08-09-2021 PTH, Intact 29 pg/mL Normal 15-65 [facility] Comment on above: Performed By: #### P TT #### [facility] [address] [place] [address] Dr. Hugh Landis CBC AUTO DIFFon 08-08-2021 BASO # 0.0 103/ul Normal 0.0-0.1 [facility] Comment on above: Performed By: #### C MP, LIPID, TSH #### [facility] [address] [place] [address] Dr. Hugh Landis Basophils/100 WBC (Bld) 0.6 % Normal 0.2-2.0 [facility] Comment on above: Performed By: #### C MP, LIPID, TSH #### [facility] [address] [place] [address] Dr. Hugh Landis EO # 0.2 103/ul Normal 0.0-0.7 [facility] Comment on above: Performed By: #### C MP, LIPID, TSH #### [facility] [address] [place] [address] Dr. Hugh Landis Eosinophils/100 WBC (Bld) 2.2 % Normal 0.9-7.0 [facility] Comment on above: Performed By: #### C MP, LIPID, TSH #### [facility] [address] [place] [address] Dr. Hugh Landis Erythrocyte distribution width (RBC) [Ratio] 13.4 % Normal 11.0-15.0 [facility] Comment on above: Performed By: #### C MP, LIPID, TSH #### [facility] [address] [place] [address] Dr. Hugh Landis Hematocrit (Bld) [Volume fraction] 38.2 % Critically low 42.0-54.0 [facility] Comment on above: Performed By: #### C MP, LIPID, TSH #### [facility] [address] [place] [address] Dr. Hugh Landis Hemoglobin (Bld) [Mass/Vol] 11.8 g/dL Critically low 14.0-18.0 [facility] Comment on above: Performed By: #### C MP, LIPID, TSH #### [facility] [address] [address] [address] Hugh Landis IG # 0.03 10e3/ul Normal 0.00-0.03 [facility] Comment on above: Performed By: #### C MP, LIPID, TSH #### [facility] [address] [address] [address] Hugh Landis IG % 0.4 % Normal 0.0-0.5 [facility] Comment on above: Performed By: #### C MP, LIPID, TSH #### [facility] [address] [address] [address] Hugh Landis LYMPH # 1.0 103/ul Critically low 1.2-3.8 [facility] Comment on above: Performed By: #### C MP, LIPID, TSH #### [facility] [address] [address] [address] Hugh Landis Lymphocytes/100 WBC (Bld) 14.9 % Critically low 20.5-60.0 [facility] Comment on above: Performed By: #### C MP, LIPID, TSH #### [facility] [address] [address] [address] Hugh Landis MANUAL DIFF REQ NO Normal [facility] Comment on above: Performed By: #### C MP, LIPID, TSH #### [facility] [address] [address] [address] Hugh Landis MCH (RBC) [Entitic mass] 28.5 pg Normal 25.9-34.0 [facility] Comment on above: Performed By: #### C MP, LIPID, TSH #### [facility] [address] [address] [address] Hugh Landis MCHC (RBC) [Mass/Vol] 30.9 g/dL Normal 29.9-35.2 [facility] Comment on above: Performed By: #### C MP, LIPID, TSH #### [facility] [address] [address] [address] Hugh Landis MCV (RBC) [Entitic vol] 92.3 fL Normal 80.0-94.0 [facility] Comment on above: Performed By: #### C MP, LIPID, TSH #### [facility] [address] [place] [address] Dr. Hugh Landis MONO # 0.7 103/ul Normal 0.3-0.8 [facility] Comment on above: Performed By: #### C MP, LIPID, TSH #### [facility] [address] [place] [address] Dr. Hugh Landis Monocytes/100 WBC (Bld) 10.6 % Normal 1.7-12.0 [facility] Comment on above: Performed By: #### C MP, LIPID, TSH #### [facility] [address] [place] [address] Dr. Hugh Landis NEUT # 4.9 103/ul Normal 1.4-6.5 [facility] Comment on above: Performed By: #### C MP, LIPID, TSH #### [facility] [address] [place] [address] Dr. Hugh Landis Neutrophils/100 WBC (Bld) 71.3 % Normal 43.0-75.0 [facility] Comment on above: Performed By: #### C MP, LIPID, TSH #### [facility] [address] [place] [address] Dr. Hugh Landis Platelet mean volume (Bld) [Entitic vol] 9.4 fL Critically low 9.5-13.5 [facility] Comment on above: Performed By: #### C MP, LIPID, TSH #### [facility] [address] [place] [address] Dr. Hugh Landis PLT 249 103/ul Normal 150-450 [facility] Comment on above: Performed By: #### C MP, LIPID, TSH #### [facility] [address] [place] [address] Dr. Hugh Landis RBC 4.14 106/ul Critically low 4.70-6.10 [facility] Comment on above: Performed By: #### C MP, LIPID, TSH #### [facility] [address] [place], [place] [id number] Dr. Hugh Landis WBC 6.9 103/ul Normal 4.0-11.0 [facility] Comment on above: Performed By: #### C MP, LIPID, TSH #### [facility] [address] [address] [address] Hugh Landis FERRITINon 08-08-2021 Ferritin [Mass/Vol] 154.0 ng/mL Normal 26.0-388.0 [facility] Comment on above: Performed By: #### C MP, LIPID, TSH #### [facility] [address] [address] [address] Hugh Landis GLYCOHEMOGLOBIN A1Con 2021 ADA RECOMMENDATION SEE BELOW Normal [facility] Comment on above: Result Comment: ADA RECOMMENDED LIMIT 4.0 - 6.0 ADA THERAPEUTIC TARGET < 7.0 ACTION SUGGESTED > 7.0 Performed By: #### P T #### [facility] [address] [place] [address] Dr. Hugh Landis Glucose [Mass/Vol] 140 mg/dL Normal [facility] Comment on above: Performed By: #### P T #### [facility] [address] [address] [address] Hugh Landis HbA1c (Bld) [Mass fraction] 6.5 % Critically high 4.5-6.2 [facility] Comment on above: Performed By: #### P T #### [facility] [address] [place] [address] Dr. Hugh Landis IRON AND TIBCon 08-08-2021 % SATURATION 13.6 % Normal [facility] Comment on above: Performed By: #### C MP, LIPID, TSH #### [facility] [address] [address] [address] Hugh Landis Iron [Mass/Vol] 45.0 ug/dL Critically low 65.0-175.0 [facility] Comment on above: Performed By: #### C MP, LIPID, TSH #### [facility] [address] [address] [address] Hugh Landis TIBC DIRECT 332.0 ug/dL Normal 250.0-450.0 [facility] Comment on above: Performed By: #### C MP, LIPID, TSH #### [facility] [address] [address] [address] Hugh Landis LIPID PROFILEon 08-08-2021 CHOL-HDL RATIO NORM SEE BELOW Normal [facility] Comment on above: Result Comment: 3.3 - 4.4 LOW RISK 4.4 - 7.1 AVERAGE RISK 7.1 - 11.0 MODERATE RISK >11.0 HIGH RISK Performed By: #### C MP, LIPID, TSH #### [facility] [address] [address] [address] Hugh Landis Cholesterol [Mass/Vol] 187 mg/dL Normal <=200 [facility] Comment on above: Performed By: #### C MP, LIPID, TSH #### [facility] [address] [address] [address] Hugh Landis Cholesterol in HDL [Mass/Vol] 51 mg/dL Normal 40-60 [facility] Comment on above: Performed By: #### C MP, LIPID, TSH #### [facility] [address] [address] [address] Hugh Landis Cholesterol in LDL [Mass/Vol] 101.8 mg/dL Normal [facility] Comment on above: Performed By: #### C MP, LIPID, TSH #### [facility] [address] [address] [address] Hugh Landis Cholesterol.total/C holesterol in HDL [Mass ratio] 3.7 {ratio} Normal [facility] Comment on above: Performed By: #### C MP, LIPID, TSH #### [facility] [address] [address] [address] Hugh Landis HDL NORMAL > or = 60 mg/dl - LO W CARDIOVASCULAR RISK <40 mg/dl - HIGH CARDIOVASCULAR RISK Normal [facility] Comment on above: Performed By: #### C MP, LIPID, TSH #### [facility] [address] [address] [address] Hugh Landis LDL CALC NORMAL SEE BELOW Normal [facility] Comment on above: Result Comment: <100 mg/dl OPTIMAL 100 - 129 mg/dl NEAR OR ABOVE OPTIMAL 130 - 159 mg/dl BORDERLINE HIGH 160 - 189 mg/dl HIGH >190 mg/dl VERY HIGH Performed By: #### C MP, LIPID, TSH #### [facility] [address] [place] [address] Dr. Hugh Landis Triglyceride [Mass/Vol] 171 mg/dL Critically high <=150 [facility] Comment on above: Performed By: #### C MP, LIPID, TSH #### [facility] [address] [address] [address] Hugh Landis VLDL CALC 34.2 mg/dL Normal [facility] Comment on above: Performed By: #### C MP, LIPID, TSH #### [facility] [address] [place] [address] Dr. Hugh Landis PROF 14(COMP METB)on 022 Albumin [Mass/Vol] 3.6 g/dL Normal 3.4-5.0 [facility] Comment on above: Performed By: #### C MP, LIPID, TSH #### [facility] [address] [place] [address] Dr. Hugh Landis Albumin/Globulin [Mass ratio] 0.8 {ratio} Normal [facility] Comment on above: Performed By: #### C MP, LIPID, TSH #### [facility] [address] [place] [address] Dr. Hugh Landis ALP [Catalytic activity/Vol] 64 U/L Normal 46-116 [facility] Comment on above: Performed By: #### C MP, LIPID, TSH #### [facility] [address] [place] [address] Dr. Hugh Landis ALT [Catalytic activity/Vol] 28 U/L Normal 16-63 [facility] Comment on above: Performed By: #### C MP, LIPID, TSH #### [facility] [address] [place] [address] Dr. Hugh Landis Anion gap [Moles/Vol] 15.0 mmol/L Normal [facility] Comment on above: Performed By: #### C MP, LIPID, TSH #### [facility] [address] [address] [address] Hugh Landis AST [Catalytic activity/Vol] 14 U/L Critically low 15-37 [facility] Comment on above: Performed By: #### C MP, LIPID, TSH #### [facility] [address] [address] [address] Hugh Landis Bilirubin [Mass/Vol] 0.5 mg/dL Normal 0.2-1.0 [facility] Comment on above: Performed By: #### C MP, LIPID, TSH #### [facility] [address] [address] [address] Hugh Landis Calcium [Mass/Vol] 9.6 mg/dL Normal 8.5-10.1 [facility] Comment on above: Performed By: #### C MP, LIPID, TSH #### [facility] [address] [address] [address] Hugh Landis Chloride [Moles/Vol] 105 mmol/L Normal 98-107 [facility] Comment on above: Performed By: #### C MP, LIPID, TSH #### [facility] [address] [address] [address] Hugh Landis CO2 [Moles/Vol] 23.5 mmol/L Normal 21.0-32.0 [facility] Comment on above: Performed By: #### C MP, LIPID, TSH #### [facility] [address] [address] [address] Hugh Landis Creatinine [Mass/Vol] 2.69 mg/dL Critically high 0.70-1.30 [facility] Comment on above: Performed By: #### C MP, LIPID, TSH #### [facility] [address] [address] [address] Hugh Landis EGFR-AF [place] 30 mL/min/1.73m2 Critically low >=60 [facility] Comment on above: Performed By: #### C MP, LIPID, TSH #### [facility] [address] [address] [address] Hugh Landis EGFR-NON AF [place] 25 mL/min/1.73m2 Critically low >=60 [facility] Comment on above: Performed By: #### C MP, LIPID, TSH #### [facility] [address] [address] [address] Hugh Landis Globulin (S) [Mass/Vol] 4.3 g/dL Normal [facility] Comment on above: Performed By: #### C MP, LIPID, TSH #### [facility] [address] [address] [address] Hugh Landis Glucose [Mass/Vol] 80 mg/dL Normal 74-106 [facility] Comment on above: Performed By: #### C MP, LIPID, TSH #### [facility] [address] [address] [address] Hugh Landis Potassium [Moles/Vol] 5.5 mmol/L Critically high 3.5-5.1 [facility] Comment on above: Performed By: #### C MP, LIPID, TSH #### [facility] [address] [place] [address] Dr. Hugh Landis Protein [Mass/Vol] 7.9 g/dL Normal 6.4-8.2 [facility] Comment on above: Performed By: #### C MP, LIPID, TSH #### [facility] [address] [place] [address] Dr. Hugh Landis Sodium [Moles/Vol] 138 mmol/L Normal 136-145 [facility] Comment on above: Performed By: #### C MP, LIPID, TSH #### [facility] [address] [place] [address] Dr. Hugh Landis Urea nitrogen [Mass/Vol] 47.0 mg/dL Critically high 7.0-18.0 [facility] Comment on above: Performed By: #### C MP, LIPID, TSH #### [facility] [address] [place] [address] Dr. Hugh Landis Urea nitrogen/Creatinine [Mass ratio] 17.5 mg/mg Normal [facility] Comment on above: Performed By: #### C MP, LIPID, TSH #### [facility] [address] [place] [address] Dr. Hugh Landis TSHon 08-08-2021 TSH 1.069 uIU/mL Normal 0.358-3.740 [facility] Comment on above: Performed By: #### C MP, LIPID, TSH #### [facility] [address] [place] [address] Dr. Hugh Landis TSH RANGE SEE BELOW Normal [facility] Comment on above: Result Comment: <0.3 4 UIU/ml HYPERTHYROID 0.34-5.60 UIU/ml EUTHYROID >5.60 UIU/ml HYPOTHYROID Performed By: #### C MP, LIPID, TSH #### [facility] [address] [address] [address] Hugh Landis VITAMIN B12on 08-08-2021 Cobalamin (Vitamin B12) [Mass/Vol] 336.0 pg/mL Normal 193.0-986.0 [facility] Comment on above: Performed By: #### C MP, LIPID, TSH #### [facility] [address] [place] [address] Dr. Hugh Landis VITAMIN D 25 OHon 08-08-2021 VIT D 25-OH 36.6 ng/mL Normal [facility] Comment on above: Performed By: #### C MP, LIPID, TSH #### [facility] [address] [place] [address] Dr. Hugh Landis VIT D RANGES SEE BELOW Normal [facility] Comment on above: Result Comment: <20 ng/mL Vit D deficient 20 - <30 ng/mL Vit D insufficient 30 - 100 ng/mL Vit D sufficient >100 ng/mL Potential Toxicity Performed By: #### C MP, LIPID, TSH #### [facility] [address] [place] [address] Dr. Hugh Landis KNEE RIGHT 3 [facility] 2 KNEE RIGHT 3 [facility] Department of Radiology [address] [place] [id number] ======== Patient Name: SUKHDEEP SIMENTAL : 1965 Sex: M Age: Race: White Pt. Location: 84 Patient Status: D Ordered Date: 07/21/2021 3:35:00 [...] patella suggesting quadriceps tendon disruption. Electronically signed: [employer] [place]. Transcribed by: [email or web address], User Resident: Electronically Signed by: GINA RICHMOND @ 07/23/2021 10:50 PM Normal [facility] Comment on above: Order Comment: Evalu ate CBCon 07-18-2021 Erythrocyte distribution width (RBC) [Ratio] 13.5 % Normal 11.8-14.4 [facility] Comment on above: Performed By: #### C BC, PT, PTT, BMP #### [facility] [address] [place] [address] [phone] Home Health Manager: Good Melendez MD #### ANICOT #### [facility] [address] [place], [place] [id number] Home Health Manager: Troy Link MD Hematocrit (Bld) [Volume fraction] 39.1 % Low 40.7-50.3 [facility] Comment on above: Performed By: #### C BC, PT, PTT, BMP #### [address] [id number] Home Health Manager: Good Melendez MD #### ANICOT #### [facility] [address] [place] [address] Home Health Manager: Troy Link MD Hemoglobin (Bld) [Mass/Vol] 12.3 g/dL Low 13.0-17.0 [facility] Comment on above: Performed By: #### C BC, PT, PTT, BMP #### [address] [id number] Home Health Manager: Good Melendez MD #### ANICOT #### [facility] [address] [place] [address] Home Health Manager: Troy Link MD MCH (RBC) [Entitic mass] 28.8 pg Normal 25.2-33.5 [facility] Comment on above: Performed By: #### C BC, PT, PTT, BMP #### [address] [id number] Home Health Manager: Good Melendez MD #### ANICOT #### [facility] [address] [place], [place] [id number] Home Health Manager: Troy Link MD MCHC (RBC) [Mass/Vol] 31.5 g/dL Normal 28.4-34.8 [facility] Comment on above: Performed By: #### C BC, PT, PTT, BMP #### [address] [id number] Home Health Manager: Good Melendez MD #### ANICOT #### [facility] [address] [place] [address] Home Health Manager: Troy Link MD MCV (RBC) [Entitic vol] 91.6 fL Normal 82.6-102.9 [facility] Comment on above: Performed By: #### C BC, PT, PTT, BMP #### [address] [id number] Home Health Manager: Good Melendez MD #### ANICOT #### [address] [id number] Home Health Manager: Troy Link MD NRBC Automated 0.0 per 100 WBC Normal 0.0 [facility] Comment on above: Performed By: #### C BC, PT, PTT, BMP #### [address] [id number] Home Health Manager: Good Melendez MD #### ANICOT #### [facility] [address] [place] [address] [phone] Home Health Manager: Troy Link MD Platelet mean volume (Bld) [Entitic vol] 9.7 fL Normal 8.1-13.5 [facility] Comment on above: Performed By: #### C BC, PT, PTT, BMP #### [address] [id number] Home Health Manager: Good Melendez MD #### ANICOT #### [facility] [address] [place] [address] Home Health Manager: Troy Link MD Platelets (Bld) [#/Vol] 190 10*3/uL Normal 138-453 [facility] Comment on above: Performed By: #### C BC, PT, PTT, BMP #### [address] [address] Home Health Manager: Good Melendez MD #### ANICOT #### [facility] [address] [place] [address] Home Health Manager: Troy Link MD RBC (Bld) [#/Vol] 4.27 10*6/uL Normal 4.21-5.77 [facility] Comment on above: Performed By: #### C BC, PT, PTT, BMP #### [address] [address] Home Health Manager: Good Melendez MD #### ANICOT #### [facility] [address] [place], [place] [id number] Home Health Manager: Troy Link MD WBC (Bld) [#/Vol] 8.7 10*3/uL Normal 3.5-11.3 [facility] Comment on above: Performed By: #### C BC, PT, PTT, BMP #### [address] [address] Home Health Manager: Good Melendez MD #### ANICOT #### [facility] [address] [place], [place] [id number] Home Health Manager: Troy Link MD APTTon 07-17-2021 aPTT Coag (Bld) [Time] 20.8 s Normal 20.5-30.5 [facility] Comment on above: Result Comment: IV Heparin Therapy Range: 48.6-77.8 Performed By: #### C BC, PT, PTT, BMP #### [address] [address] Home Health Manager: Good Melendez MD #### ANICOT #### [facility] [address] [place] [address] Home Health Manager: Troy Link MD aPTT Coag (Bld) [Time] 37.9 s High 20.5-30.5 [facility] Comment on above: Result Comment: IV Heparin Therapy Range: 48.6-77.8 Performed By: #### C BC, PT, PTT, BMP #### [address] [address] Home Health Manager: Good Melendez MD #### ANICOT #### [facility] [address] [place] [address] Home Health Manager: Troy Link MD aPTT Coag (Bld) [Time] 78.1 s High 20.5-30.5 [facility] Comment on above: Result Comment: IV Heparin Therapy Range: 48.6-77.8 Performed By: #### C BC, PT, PTT, BMP #### [address] [address] Home Health Manager: Good Melendez MD #### ANICOT #### [address] [id number] Home Health Manager: Troy Link MD Basic Metab w/rfx MGon 07-17 (cont.) Normal [facility] Comment on above: Result Comment: Aver age GFR for 50-59 years old: 93 mL/min/1.73sq m Chronic Kidney Disease: <60 mL/min/1.73sq m Kidney failure: <15 mL/min/1.73sq m eGFR calculated using average adult body mass. Additional eGFR calculator available at: http://www.DNS:Net.com/multiple_crcl_2012.htm Performed By: #### C BC, PT, PTT, BMP #### [address] [address] Home Health Manager: Good Melendez MD #### ANICOT #### [facility] [address] [place] [address] Home Health Manager: Troy Link MD Anion gap [Moles/Vol] 9 mmol/L Normal 9-17 [facility] Comment on above: Performed By: #### C BC, PT, PTT, BMP #### [address] [address] Home Health Manager: Good Melendez MD #### ANICOT #### [facility] [address] [place] [address] Home Health Manager: Troy Link MD Calcium [Mass/Vol] 9.3 mg/dL Normal 8.6-10.4 [facility] Comment on above: Performed By: #### C BC, PT, PTT, BMP #### [address] [address] Home Health Manager: Good Melendez MD #### ANICOT #### [facility] [address] [place] [address] [phone] Home Health Manager: Troy Link MD Chloride [Moles/Vol] 106 mmol/L Normal 98-107 [facility] Comment on above: Performed By: #### C BC, PT, PTT, BMP #### [address] [address] Home Health Manager: Good Melendez MD #### ANICOT #### [facility] [address] [place] [address] Home Health Manager: Troy Link MD CO2 [Moles/Vol] 23 mmol/L Normal 20-31 [facility] Comment on above: Performed By: #### C BC, PT, PTT, BMP #### [address] [address] Home Health Manager: Good Melendez MD #### ANICOT #### [facility] [address] [place], [place] [id number] Home Health Manager: Troy Link MD Creatinine [Mass/Vol] 1.40 mg/dL High 0.70-1.20 [facility] Comment on above: Performed By: #### C BC, PT, PTT, BMP #### [address] [address] Home Health Manager: Good Melendez MD #### ANICOT #### [facility] [address] [place], [place] [id number] Home Health Manager: Troy Link MD GFR, Amer >60 Normal >60 [facility] Comment on above: Performed By: #### C BC, PT, PTT, BMP #### [address] [address] Home Health Manager: Good Melendez MD #### ANICOT #### [facility] [address] [place], [place] [id number] Home Health Manager: Troy Link MD GFR,non Amer 52 mL/min Low >60 [facility] Comment on above: Performed By: #### C BC, PT, PTT, BMP #### [address] [address] Home Health Manager: Good Melendez MD #### ANICOT #### [facility] [address] [place], [place] [id number] Home Health Manager: Troy Link MD Glucose [Mass/Vol] 170 mg/dL High 70-99 [facility] Comment on above: Performed By: #### C BC, PT, PTT, BMP #### [address] [address] Home Health Manager: Good Melendez MD #### ANICOT #### [facility] [address] [place] [address] Home Health Manager: Troy Link MD Potassium [Moles/Vol] 4.6 mmol/L Normal 3.7-5.3 [facility] Comment on above: Performed By: #### C BC, PT, PTT, BMP #### [facility] [employer] [address] [place] [address] [phone] Home Health Manager: Good Melendez MD #### ANICOT #### [facility] [address] [place], [place] [id number] Home Health Manager: Troy Link MD Sodium [Moles/Vol] 138 mmol/L Normal 135-144 [facility] Comment on above: Performed By: #### C BC, PT, PTT, BMP #### [address] [id number] Home Health Manager: Good Melendez MD #### ANICOT #### [facility] [address] [place] [address] Home Health Manager: Troy Link MD Urea nitrogen [Mass/Vol] 33 mg/dL High 6-20 [facility] Comment on above: Performed By: #### Bennett BC, PT, PTT, BMP #### [facility] [employer] [address] [place] [address] [phone] Home Health Manager: Good Melendez MD #### ANICOT #### [facility] [address] [place] [address] Home Health Manager: Troy Link MD Basic Metabolic Profon 07-17 (cont.) Normal [facility] Comment on above: Result Comment: Aver age GFR for 50-59 years old: 93 mL/min/1.73sq m Chronic Kidney Disease: <60 mL/min/1.73sq m Kidney failure: <15 mL/min/1.73sq m eGFR calculated using average adult body mass. Additional eGFR calculator available at: http://www.DNS:Net.Hookflash/multiple_crcl_2011.htm Performed By: #### C BC, PT, PTT, BMP #### [facility] [employer] [address] [place] [id number] Home Health Manager: Good Melendez MD #### ANICOT #### [facility] [address] [place] [address] Home Health Manager: Troy Link MD Anion gap [Moles/Vol] 8 mmol/L Low 9-17 [facility] Comment on above: Performed By: #### C BC, PT, PTT, BMP #### [facility] [address] [place] [phone] Home Health Manager: Good Melendez MD #### ANICOT #### [facility] [address] [place] [address] Home Health Manager: Troy Link MD Calcium [Mass/Vol] 9.5 mg/dL Normal 8.6-10.4 [facility] Comment on above: Performed By: #### [place] BC, PT, PTT, BMP #### [address] [address] Home Health Manager: Good Melendez MD #### ANICOT #### [facility] [address] [place] [address] Home Health Manager: Troy Link MD Chloride [Moles/Vol] 104 mmol/L Normal 98-107 [facility] Comment on above: Performed By: #### C BC, PT, PTT, BMP #### [facility] [address] [place] [address] Home Health Manager: Good Melendez MD #### ANICOT #### [facility] [address] [place] [address] Home Health Manager: Troy Link MD CO2 [Moles/Vol] 23 mmol/L Normal 20-31 [facility] Comment on above: Performed By: #### C BC, PT, PTT, BMP #### [address] [address] Home Health Manager: Good Melendez MD #### ANICOT #### [facility] [address] [place] [address] Home Health Manager: Troy Link MD Creatinine [Mass/Vol] 1.34 mg/dL High 0.70-1.20 [facility] Comment on above: Performed By: #### C BC, PT, PTT, BMP #### [facility] [address] [place] [address] Home Health Manager: Good Melendez MD #### ANICOT #### [facility] [address] [place] [address] Home Health Manager: Troy Link MD GFR, Amer >60 Normal >60 [facility] Comment on above: Performed By: #### C BC, PT, PTT, BMP #### [address] [address] Home Health Manager: Good Melendez MD #### ANICOT #### [facility] [address] [place] [address] Home Health Manager: Troy Link MD GFR,non Amer 55 mL/min Low >60 [facility] Comment on above: Performed By: #### C BC, PT, PTT, BMP #### [facility] [address] [place] [address] Home Health Manager: Good Melendez MD #### ANICOT #### [facility] [address] [place] [address] Home Health Manager: Troy Link MD Glucose [Mass/Vol] 136 mg/dL High 70-99 [facility] Comment on above: Performed By: #### C BC, PT, PTT, BMP #### [facility] [employer] [address] [place] [address] Home Health Manager: Good Melendez MD #### ANICOT #### [facility] [address] [place] [address] Home Health Manager: Troy Link MD Potassium [Moles/Vol] 4.7 mmol/L Normal 3.7-5.3 [facility] Comment on above: Performed By: #### C BC, PT, PTT, BMP #### [address] [address] Home Health Manager: Good Melendez MD #### ANICOT #### [facility] [address] [place] [address] Home Health Manager: Troy Link MD Sodium [Moles/Vol] 135 mmol/L Normal 135-144 [facility] Comment on above: Performed By: #### C BC, PT, PTT, BMP #### [address] [address] Home Health Manager: Good Melendez MD #### ANICOT #### [facility] [address] [place] [address] Home Health Manager: Troy Link MD Urea nitrogen [Mass/Vol] 31 mg/dL High 6-20 [facility] Comment on above: Performed By: #### C BC, PT, PTT, BMP #### [facility] [employer] [address] [place] [phone] Home Health Manager: Good Melendez MD #### ANICOT #### [facility] [address] [place] [address] Home Health Manager: Troy Link MD Fibrinogenon 07-17-2021 Fibrinogen 404 mg/dL Normal 140-420 [facility] Comment on above: Performed By: #### C BC, PT, PTT, BMP #### [facility] [employer] [address] [place] [phone] Home Health Manager: Good Melendez MD #### ANICOT #### [facility] [address] [place] [address] Home Health Manager: Troy Link MD Fibrinogen 395 mg/dL Normal 140-420 [facility] Comment on above: Performed By: #### C BC, PT, PTT, BMP #### [facility] [address] [place] [address] Home Health Manager: Good Melendez MD #### ANICOT #### [facility] [address] [place] [address] Home Health Manager: Troy Link MD Hemoglobin A1Con 07-17-2021 Glucose [Mass/Vol] 169 mg/dL Normal [facility] Comment on above: Result Comment: The ADA and AACC recommend providing the estimated average glucose result to permit better patient understanding of their HBA1c result. Performed By: #### C BC, PT, PTT, BMP #### [facility] [address] [place] [address] Home Health Manager: Good Melendez MD #### ANICOT #### [facility] [address] [place], [place] [id number] Home Health Manager: Troy Link MD HbA1c (Bld) [Mass fraction] 7.5 % High 4.0-6.0 [facility] Comment on above: Performed By: #### C BC, PT, PTT, BMP #### [facility] [address] [place] [phone] Home Health Manager: Good Melendez MD #### ANICOT #### [facility] [address] [place], [place] [id number] Home Health Manager: Troy Link MD PTon 07-17-2021 INR Coag (PPP) [Relative time] 1.2 {INR} Normal [facility] Comment on above: Result Comment: Therapeutic Range: Moderate Anticoagulant Intensity: INR = 2.0-3.0 High Anticoagulant Intensity: INR = 2.5-3.5 Performed By: #### C BC, PT, PTT, BMP #### [facility] [address] [place] [address] [phone] Home Health Manager: Good Melendez MD #### ANICOT #### [facility] [address] [place], [place] [id number] Home Health Manager: Troy Link MD PT Coag (PPP) [Time] 12.6 s High 9.1-12.3 [facility] Comment on above: Performed By: #### C BC, PT, PTT, BMP #### [facility] [address] [place] [address] [phone] Home Health Manager: Good Melendez MD #### ANICOT #### [facility] [address] [place] [address] Home Health Manager: Troy Link MD Troponinon 07-17-2021 Troponin, High Sens 38 ng/L High 0-22 [facility] Comment on above: Result Comment: High Sensitivity Troponin values cannot be compared with other Troponin methodologies. Patients with high levels of Biotin oral intake (i.e >5mg/day) may have falsely decreased Troponin levels. Samples collected within 8 hours of biotin intake may require additional information for diagnosis. Performed By: #### C BC, PT, PTT, BMP #### [facility] [address] [place] [id number] Home Health Manager: Good Melendez MD #### ANICOT #### [facility] [address] [place], [place] [id number] Home Health Manager: Troy Link MD APTTon 07-16-2021 aPTT Coag (Bld) [Time] 51.1 s High 20.5-30.5 [facility] Comment on above: Result Comment: IV Heparin Therapy Range: 48.6-77.8 Performed By: #### C BC, PT, PTT, BMP #### [facility] [address] [place] [address] Home Health Manager: Good Melendez MD #### ANICOT #### [facility] [address] [place], [place] [id number] Home Health Manager: Troy Link MD aPTT Coag (Bld) [Time] 31.1 s High 20.5-30.5 [facility] Comment on above: Result Comment: IV Heparin Therapy Range: 48.6-77.8 Performed By: #### C BC, PT, PTT, BMP #### [facility] [address] [place] [address] Home Health Manager: Good Melendez MD #### ANICOT #### [facility] [address] [place], [place] [id number] Home Health Manager: Troy Link MD Brain Natri. Peptideon 07-161 Natriuretic peptide B (Bld) [Mass/Vol] 1492 pg/mL High <300 [facility] Comment on above: Result Comment: An age-independent cutoff point of 300 pg/ml has a 98% negative predictive value excluding acute heart failure. Performed By: #### C BC, PT, PTT, BMP #### [address] [address] Home Health Manager: Good Melendez MD #### ANICOT #### [facility] [address] [place], [place] [id number] Home Health Manager: Troy Link MD CBCon 7 Erythrocyte distribution width (RBC) [Ratio] 13.6 % Normal 11.8-14.4 [facility] Comment on above: Performed By: #### C BC, PT, PTT, BMP #### [address] [address] Home Health Manager: Good Melendez MD #### ANICOT #### [facility] [address] [place], [place] [id number] Home Health Manager: Troy Link MD Hematocrit (Bld) [Volume fraction] 40.3 % Low 40.7-50.3 [facility] Comment on above: Performed By: #### C BC, PT, PTT, BMP #### [address] [address] Home Health Manager: Good Melendez MD #### ANICOT #### [address] [id number] Home Health Manager: Troy Link MD Hemoglobin (Bld) [Mass/Vol] 13.0 g/dL Normal 13.0-17.0 [facility] Comment on above: Performed By: #### C BC, PT, PTT, BMP #### [address] [address] Home Health Manager: Good Melendez MD #### ANICOT #### [address] [id number] Home Health Manager: Troy Link MD MCH (RBC) [Entitic mass] 28.7 pg Normal 25.2-33.5 [facility] Comment on above: Performed By: #### C BC, PT, PTT, BMP #### [address] [phone] Home Health Manager: Good Melendez MD #### ANICOT #### [address] [id number] Home Health Manager: Troy Link MD MCHC (RBC) [Mass/Vol] 32.3 g/dL Normal 28.4-34.8 [facility] Comment on above: Performed By: #### C BC, PT, PTT, BMP #### [address] [id number] Home Health Manager: Good Melendez MD #### ANICOT #### [address] [phone] Home Health Manager: Troy Link MD MCV (RBC) [Entitic vol] 89.0 fL Normal 82.6-102.9 [facility] Comment on above: Performed By: #### C BC, PT, PTT, BMP #### [address] [address] Home Health Manager: Good Melendez MD #### ANICOT #### [facility] [address] [place] [address] Home Health Manager: Troy Link MD NRBC Automated 0.0 per 100 WBC Normal 0.0 [facility] Comment on above: Performed By: #### C BC, PT, PTT, BMP #### [address] [address] Home Health Manager: Good Melendez MD #### ANICOT #### [address] [address] Home Health Manager: Troy Link MD Platelet mean volume (Bld) [Entitic vol] 9.6 fL Normal 8.1-13.5 [facility] Comment on above: Performed By: #### C BC, PT, PTT, BMP #### [address] [address] Home Health Manager: Good Melendez MD #### ANICOT #### [facility] [address] [place] [address] Home Health Manager: Troy Link MD Platelets (Bld) [#/Vol] 203 10*3/uL Normal 138-453 [facility] Comment on above: Performed By: #### C BC, PT, PTT, BMP #### [address] [address] Home Health Manager: Good Melendez MD #### ANICOT #### [facility] [address] [place], [place] [id number] Home Health Manager: Troy Link MD RBC (Bld) [#/Vol] 4.53 10*6/uL Normal 4.21-5.77 [facility] Comment on above: Performed By: #### C BC, PT, PTT, BMP #### [address] [address] Home Health Manager: Good Melendez MD #### ANICOT #### [facility] [address] [place], [place] [id number] Home Health Manager: Troy Link MD WBC (Bld) [#/Vol] 6.8 10*3/uL Normal 3.5-11.3 [facility] Comment on above: Performed By: #### C BC, PT, PTT, BMP #### [address] [phone] Home Health Manager: Good Melendez MD #### ANICOT #### [facility] [address] [place] [address] [phone] Home Health Manager: Troy Link MD Troponinon 07-16-2021 Troponin, High Sens 59 ng/L Critically high 0-22 [facility] Comment on above: Result Comment: High Sensitivity Troponin values cannot be compared with other Troponin methodologies. Patients with high levels of Biotin oral intake (i.e >5mg/day) may have falsely decreased Troponin levels. Samples collected within 8 hours of biotin intake may require additional information for diagnosis. Performed By: #### C BC, PT, PTT, BMP #### [facility] [address] [place] [address] Home Health Manager: Good Melendez MD #### ANICOT #### [facility] [address] [place], [place] [id number] Home Health Manager: Troy Link MD EKG 12 LeadOrdered By: Matias Varela on 05-26-2021 Atrial Rate 108 BPM [facility] [employer] Work Phone: P [place] -96 degrees [employer] Phone: P-R Interval 192 ms [employer] Phone: Q-T Interval 348 ms [employer] Phone: QRS Duration 94 ms [employer] Phone: QTc Calculation (Bazett) 466 ms [employer] Phone: R [place] -116 degrees [facility] Work Phone: T [place] -114 degrees [employer] Phone: Ventricular Rate 108 BPM [employer] Work Phone: [employer] Phone: EKG 12 Leadon 05-26-2021 Arm lead reversal Sinus Tachycardia V Leads placement error Repeat ECG When compared with ECG of 08-MAY-2021 11:42, Significant changes have occurred [facility] Matias Andrade MD - 05/26/2021 Arm lead reversal Sinus Tachycardia V Leads placement error Repeat ECG When compared with ECG of 08-MAY-2021 11:42, Significant changes have occurred [employer] Phone: SURGICAL PATHOLOGY REPORTon 05-26-2021 Surgical Pathology [...] with no areas of granularity or masses. Editor sections 1cs. tm Microscopic Description Sections of gastric wall show lamina propria without evidence of significant inflammation. There is no evidence of intestinal metaplasia or dysplasia. There is no evidence of organisms suspicious for Helicobacter with the routine H&E stain. SURGICAL PATHOLOGY CONSULTATION Patient Name: SUKHDEEP SIMENTAL [facility] Rec: [id number] Path Number: [id number] [facility] [employer] [facility] ANATOMIC PATHOLOGY [address] [place] [address]. [place], [place] [address] [facility] Basic Metabolic Panelon 04-27 Anion gap [Moles/Vol] 10 mmol/L 9 - 17 mmol/L [facility] Calcium [Mass/Vol] 9.1 mg/dL 8.6 - 10. 4 mg/dL [facility] Chloride [Moles/Vol] 106 mmol/L 98 - 107 mmol/L [facility] CO2 [Moles/Vol] 23 mmol/L 20 - 31 mmol/L [facility] Creatinine [Mass/Vol] 1.1 mg/dL 0.70 - 1.20 mg/dL [facility] GFR >60 >60 mL/min [facility] GFR Non- >60 >60 mL/min [facility] GFR/1.73 sq M.predicted MDRD (S/P/Bld) [Vol rate/Area] [facility] Comment on above: Average GFR for 50-5 9 years old: 93 mL/min/1.73sq m Chronic Kidney Disease: <60 mL/min/1.73sq m Kidney failure: <15 mL/min/1.73sq m eGFR calculated using average adult body mass. Additional eGFR calculator available at: http://www.DNS:Net.Hookflash/multiple_crcl_2012.htm Glucose [Mass/Vol] 127 mg/dL High 70 - 99 mg/dL [facility] [employer] Interpretation and review of laboratory results Abnormal [facility] Potassium [Moles/Vol] 4.8 mmol/L 3.7 - 5.3 mmol/L [facility] Sodium [Moles/Vol] 139 mmol/L 135 - 144 mmol/L [facility] Urea nitrogen (BldV) [Mass/Vol] 24 mg/dL High 6 - 20 mg/dL [facility] Basic Metabolic Profon 05-25 (cont.) Normal [facility] Comment on above: Result Comment: Aver age GFR for 50-59 years old: 93 mL/min/1.73sq m Chronic Kidney Disease: <60 mL/min/1.73sq m Kidney failure: <15 mL/min/1.73sq m eGFR calculated using average adult body mass. Additional eGFR calculator available at: http://www.DNS:Net.com/multiple_crcl_2012.htm Performed By: #### C BC, PT, PTT, BMP #### [facility] [address] [place] [address] [phone] Home Health Manager: Good Melendez MD #### ANICOT #### [facility] [address] [place], [place] [id number] Home Health Manager: Troy Link MD Anion gap [Moles/Vol] 10 mmol/L Normal 9-17 [facility] Comment on above: Performed By: #### C BC, PT, PTT, BMP #### [address] [phone] Home Health Manager: Good Melendez MD #### ANICOT #### [facility] [address] [place] [address] Home Health Manager: Troy Link MD Calcium [Mass/Vol] 9.1 mg/dL Normal 8.6-10.4 [facility] Comment on above: Performed By: #### C BC, PT, PTT, BMP #### [facility] [address] [place] [address] [phone] Home Health Manager: Good Melendez MD #### ANICOT #### [facility] [address] [place] [address] Home Health Manager: Troy Link MD Chloride [Moles/Vol] 106 mmol/L Normal 98-107 [facility] Comment on above: Performed By: #### C BC, PT, PTT, BMP #### [facility] [address] [place] [address] Home Health Manager: Good Melendez MD #### ANICOT #### [facility] [address] [place] [address] Home Health Manager: Troy Link MD CO2 [Moles/Vol] 23 mmol/L Normal 20-31 [facility] Comment on above: Performed By: #### C BC, PT, PTT, BMP #### [address] [address] Home Health Manager: Good Melendez MD #### ANICOT #### [facility] [address] [place] [address] Home Health Manager: Troy Link MD Creatinine [Mass/Vol] 1.10 mg/dL Normal 0.70-1.20 [facility] Comment on above: Performed By: #### C BC, PT, PTT, BMP #### [address] [address] Home Health Manager: Good Melendez MD #### ANICOT #### [facility] [address] [place], [place] [phone] Home Health Manager: Troy Link MD GFR, Amer >60 Normal >60 [facility] Comment on above: Performed By: #### C BC, PT, PTT, BMP #### [address] [address] Home Health Manager: Good Melendez MD #### ANICOT #### [facility] [address] [place] [address] Home Health Manager: Troy Link MD GFR,non Amer >60 Normal >60 [facility] Comment on above: Performed By: #### C BC, PT, PTT, BMP #### [address] [address] Home Health Manager: Good Melendez MD #### ANICOT #### [facility] [address] [place] [address] Home Health Manager: Troy Link MD Glucose [Mass/Vol] 127 mg/dL High 70-99 [facility] Comment on above: Performed By: #### C BC, PT, PTT, BMP #### [address] [address] Home Health Manager: Good Melendez MD #### ANICOT #### [address] [address] Home Health Manager: Troy Link MD Potassium [Moles/Vol] 4.8 mmol/L Normal 3.7-5.3 [facility] Comment on above: Performed By: #### C BC, PT, PTT, BMP #### [address] [phone] Home Health Manager: Good Melendez MD #### ANICOT #### [address] [phone] Home Health Manager: Troy Link MD Sodium [Moles/Vol] 139 mmol/L Normal 135-144 [facility] Comment on above: Performed By: #### C BC, PT, PTT, BMP #### [address] [address] Home Health Manager: Good Melendez MD #### ANICOT #### [address] [phone] Home Health Manager: Troy Link MD Urea nitrogen [Mass/Vol] 24 mg/dL High 6-20 [facility] Comment on above: Performed By: #### C BC, PT, PTT, BMP #### [address] [address] Home Health Manager: Good Melendez MD #### ANICOT #### [facility] [address] [place] [address] [phone] Home Health Manager: Troy Link MD CBCon 05-25-2021 Erythrocyte distribution width (RBC) [Ratio] 13.9 % Normal 11.8-14.4 [facility] Comment on above: Performed By: #### C BC, PT, PTT, BMP #### [address] [address] Home Health Manager: Good Melendez MD #### ANICOT #### [address] [phone] Home Health Manager: Troy Link MD Hematocrit (Bld) [Volume fraction] 39.5 % Low 40.7-50.3 [facility] Comment on above: Performed By: #### C BC, PT, PTT, BMP #### [address] [phone] Home Health Manager: Good Melendez MD #### ANICOT #### [address] [phone] Home Health Manager: Troy Link MD Hemoglobin (Bld) [Mass/Vol] 12.2 g/dL Low 13.0-17.0 [facility] Comment on above: Performed By: #### C BC, PT, PTT, BMP #### [address] [id number] Home Health Manager: Good Melendez MD #### ANICOT #### [address] [phone] Home Health Manager: Troy Link MD MCH (RBC) [Entitic mass] 30.2 pg Normal 25.2-33.5 [facility] Comment on above: Performed By: #### C BC, PT, PTT, BMP #### [address] [phone] Home Health Manager: Good Melendez MD #### ANICOT #### [address] [phone] Home Health Manager: Troy Link MD MCHC (RBC) [Mass/Vol] 30.9 g/dL Normal 28.4-34.8 [facility] Comment on above: Performed By: #### C BC, PT, PTT, BMP #### [address] [id number] Home Health Manager: Good Melendez MD #### ANICOT #### [facility] [address] [place], [place] [phone] Home Health Manager: Troy Link MD MCV (RBC) [Entitic vol] 97.8 fL Normal 82.6-102.9 [facility] Comment on above: Performed By: #### C BC, PT, PTT, BMP #### [address] [phone] Home Health Manager: Good Melendez MD #### ANICOT #### [address] [address] Home Health Manager: Troy Link MD NRBC Automated 0.0 per 100 WBC Normal 0.0 [facility] Comment on above: Performed By: #### C BC, PT, PTT, BMP #### [address] [phone] Home Health Manager: Good Melendez MD #### ANICOT #### [facility] [address] [place] [address] [phone] Home Health Manager: Troy Link MD Platelet mean volume (Bld) [Entitic vol] 8.8 fL Normal 8.1-13.5 [facility] Comment on above: Performed By: #### C BC, PT, PTT, BMP #### [address] [phone] Home Health Manager: Good Melendez MD #### ANICOT #### [address] [address] Home Health Manager: Troy Link MD Platelets (Bld) [#/Vol] 263 10*3/uL Normal 138-453 [facility] Comment on above: Performed By: #### C BC, PT, PTT, BMP #### [facility] [address] [place] [address] Home Health Manager: Good Melendez MD #### ANICOT #### [facility] [address] [place] [address] Home Health Manager: Troy Link MD RBC (Bld) [#/Vol] 4.04 10*6/uL Low 4.21-5.77 [facility] Comment on above: Performed By: #### C BC, PT, PTT, BMP #### [facility] [address] [place] [address] [phone] Home Health Manager: Good Melendez MD #### ANICOT #### [facility] [address] [place] [address] Home Health Manager: Troy Link MD WBC (Bld) [#/Vol] 10.8 10*3/uL Normal 3.5-11.3 [facility] Comment on above: Performed By: #### C BC, PT, PTT, BMP #### [facility] [address] [place] [address] Home Health Manager: Good Melendez MD #### ANICOT #### [facility] [address] [place] [address] Home Health Manager: Troy Link MD Hematocrit (Bld) [Volume fraction] 39.5 % Low 40.7 - 50.3 % [facility] Hemoglobin.gastroin testinal spec 1 Ql (Stl) 12.2 g/dL Low 13.0 - 17.0 g/dL [facility] Interpretation and review of laboratory results Abnormal [facility] MCH (RBC) [Entitic mass] 30.2 pg 25.2 - 33.5 pg [facility] MCHC (RBC) [Mass/Vol] 30.9 g/dL 28.4 - 34.8 g/dL [facility] MCV (RBC) [Entitic vol] 97.8 fL 82.6 - 102.9 fL [facility] NRBC Automated 0.0 0.0 per 100 WBC [facility] Platelet distribution width (Bld) [Ratio] 13.9 % 11.8 - 14.4 % [facility] Platelet mean volume (Bld) [Entitic vol] 8.8 fL 8.1 - 13.5 fL [facility] Platelets (Bld) [#/Vol] 263 10*3/uL [facility] RBC (Bld) [#/Vol] 4.04 10*6/uL Low 4.21 - 5.7 7 m/uL [facility] WBC (Bld) [#/Vol] 10.8 10*3/uL [facility] Magnesiumon 05-25-2021 Magnesium [Mass/Vol] 1.9 mg/dL Normal 1.6-2.6 [facility] Comment on above: Performed By: #### C BC, PT, PTT, BMP #### [facility] [address] [place] [address] Home Health Manager: Good Melendez MD #### ANICOT #### [facility] [address] [place] [address] Home Health Manager: Troy Link MD Magnesium [Mass/Vol] 1.9 mg/dL 1.6 - 2.6 mg/dL [facility] Surgical Pathologyon 022 Surgical Pathology (NOTE) -- Diagnosis -- STOMACH, SLEEVE GASTRECTOMY: - NORMAL GASTRIC MUCOSA AND WALL. Lucio Angeles M.D. Electronically Signed Out 05/26/2021 Clinical Information Pre-op Diagnosis: MORBID OBESITY, TYPE [...] with no areas of granularity or masses. Editor sections 1cs. tm Microscopic Description Sections of gastric wall show lamina propria without evidence of significant inflammation. There is no evidence of intestinal metaplasia or dysplasia. There is no evidence of organisms suspicious for Helicobacter with the routine CANDY stain. SURGICAL PATHOLOGY CONSULTATION Patient Name: SUKHDEEP SIMENTAL [facility] Rec: [id number] Path Number: [id number] [facility] [employer] [facility] ANATOMIC PATHOLOGY [address] [place] [phone] Normal [facility] Comment on above: Performed By: #### C BC, PT, PTT, BMP #### [facility] [address] [place] [phone] Home Health Manager: Good Melendez MD #### ANICOT #### [facility] [address] [place] [address] Home Health Manager: Troy Link MD Basic Metabolic Panelon 03-3 Anion gap [Moles/Vol] 13 mmol/L 9 - 17 mmol/L [facility] Calcium [Mass/Vol] 9.1 mg/dL 8.6 - 10. 4 mg/dL [facility] Chloride [Moles/Vol] 102 mmol/L 98 - 107 mmol/L [facility] CO2 [Moles/Vol] 17 mmol/L Low 20 - 31 mmol/L [facility] Creatinine [Mass/Vol] 1.16 mg/dL 0.70 - 1.20 mg/dL [facility] GFR >60 >60 mL/min [facility] GFR Non- >60 >60 mL/min [facility] GFR/1.73 sq M.predicted MDRD (S/P/Bld) [Vol rate/Area] [facility] Comment on above: Average GFR for 50-5 9 years old: 93 mL/min/1.73sq m Chronic Kidney Disease: <60 mL/min/1.73sq m Kidney failure: <15 mL/min/1.73sq m eGFR calculated using average adult body mass. Additional eGFR calculator available at: http://www.globalrph.com/multiple_crcl_2012.htm Glucose [Mass/Vol] 203 mg/dL High 70 - 99 mg/dL [facility] Interpretation and review of laboratory results Abnormal [facility] Potassium [Moles/Vol] 4.2 mmol/L 3.7 - 5.3 mmol/L [facility] Sodium [Moles/Vol] 132 mmol/L Low 135 - 144 mmol/L [facility] Urea nitrogen (BldV) [Mass/Vol] 29 mg/dL High 6 - 20 mg/dL [facility] Basic Metabolic Profon 05-24 (cont.) Normal [facility] Comment on above: Result Comment: Aver age GFR for 50-59 years old: 93 mL/min/1.73sq m Chronic Kidney Disease: <60 mL/min/1.73sq m Kidney failure: <15 mL/min/1.73sq m eGFR calculated using average adult body mass. Additional eGFR calculator available at: http://www.BioCurity/Culinary Agents_crcl_2011.htm Performed By: #### C BC, BMP #### [facility] [address] [place] [address] [phone] Home Health Manager: Good Melendez MD Anion gap [Moles/Vol] 13 mmol/L Normal 9-17 [facility] Comment on above: Performed By: #### C BC, BMP #### [facility] [address] [place] [id number] Home Health Manager: Good Melendez MD Calcium [Mass/Vol] 9.1 mg/dL Normal 8.6-10.4 [facility] Comment on above: Performed By: #### C BC, BMP #### [facility] [address] [place] [phone] Home Health Manager: Good Melendez MD Chloride [Moles/Vol] 102 mmol/L Normal 98-107 [facility] Comment on above: Performed By: #### C BC, BMP #### [facility] [address] [place] [address] [phone] Home Health Manager: Good Melendez MD CO2 [Moles/Vol] 17 mmol/L Low 20-31 [facility] Comment on above: Performed By: #### C BC, BMP #### [facility] [address] [place] [address] Home Health Manager: Good Melendez MD Creatinine [Mass/Vol] 1.16 mg/dL Normal 0.70-1.20 [facility] Comment on above: Performed By: #### C BC, BMP #### [facility] [address] [place] [phone] Home Health Manager: Good Melendez MD GFR, Amer >60 Normal >60 [facility] Comment on above: Performed By: #### C BC, BMP #### [facility] [employer] [address] [place] [phone] Home Health Manager: Good Melendez MD GFR,non Amer >60 Normal >60 [facility] Comment on above: Performed By: #### C BC, BMP #### [facility] [employer] [address] [place] [phone] Home Health Manager: Good Melendez MD Glucose [Mass/Vol] 203 mg/dL High 70-99 [facility] Comment on above: Performed By: #### C BC, BMP #### [facility] [employer] [address] [place] [phone] Home Health Manager: Good Melendez MD Potassium [Moles/Vol] 4.2 mmol/L Normal 3.7-5.3 [facility] Comment on above: Performed By: #### C BC, BMP #### [facility] [employer] [address] [place] [phone] Home Health Manager: Good Melendez MD Sodium [Moles/Vol] 132 mmol/L Low 135-144 [facility] Comment on above: Performed By: #### C BC, BMP #### [facility] [address] Home Health Manager: Good Melendez MD Urea nitrogen [Mass/Vol] 29 mg/dL High 6-20 [facility] Comment on above: Performed By: #### C BC, BMP #### [address] [address] Home Health Manager: Good Melendez MD CBCon 05-24-2021 Erythrocyte distribution width (RBC) [Ratio] 14.0 % Normal 11.8-14.4 [facility] Comment on above: Performed By: #### C BC, BMP #### [facility] [employer] [address] [place] [phone] Home Health Manager: Good Melendez MD Hematocrit (Bld) [Volume fraction] 41.0 % Normal 40.7-50.3 [facility] Comment on above: Performed By: #### C BC, BMP #### [facility] [employer] [address] [place] [phone] Home Health Manager: Good Melendez MD Hemoglobin (Bld) [Mass/Vol] 12.7 g/dL Low 13.0-17.0 [facility] Comment on above: Performed By: #### C BC, BMP #### [facility] [employer] [address] [place] [id number] Home Health Manager: Good Melendez MD MCH (RBC) [Entitic mass] 29.5 pg Normal 25.2-33.5 [facility] Comment on above: Performed By: #### C BC, BMP #### [facility] [employer] [address] [place] [address] Home Health Manager: Good Melendez MD MCHC (RBC) [Mass/Vol] 31.0 g/dL Normal 28.4-34.8 [facility] Comment on above: Performed By: #### C BC, BMP #### [facility] [employer] [address] [place] [phone] Home Health Manager: Good Melendez MD MCV (RBC) [Entitic vol] 95.3 fL Normal 82.6-102.9 [facility] Comment on above: Performed By: #### C BC, BMP #### [address] [address] Home Health Manager: Good Melendez MD NRBC Automated 0.0 per 100 WBC Normal 0.0 [facility] Comment on above: Performed By: #### C BC, BMP #### [address] [address] Home Health Manager: Good Melendez MD Platelet mean volume (Bld) [Entitic vol] 8.8 fL Normal 8.1-13.5 [facility] Comment on above: Performed By: #### C BC, BMP #### [address] [address] Home Health Manager: Good Melendez MD Platelets (Bld) [#/Vol] 273 10*3/uL Normal 138-453 [facility] Comment on above: Performed By: #### C BC, BMP #### [address] [address] Home Health Manager: Good Melendez MD RBC (Bld) [#/Vol] 4.30 10*6/uL Normal 4.21-5.77 [facility] Comment on above: Performed By: #### C BC, BMP #### [address] [address] Home Health Manager: Good Melendez MD WBC (Bld) [#/Vol] 9.6 10*3/uL Normal 3.5-11.3 [facility] Comment on above: Performed By: #### C BC, BMP #### [address] [address] Home Health Manager: Good Melendez MD CBC without Diffon Hematocrit (Bld) [Volume fraction] 41.0 % 40.7 - 50.3 % [facility] Hemoglobin.gastroin testinal spec 1 Ql (Stl) 12.7 g/dL Low 13.0 - 17.0 g/dL [facility] Interpretation and review of laboratory results Abnormal [facility] MCH (RBC) [Entitic mass] 29.5 pg 25.2 - 33.5 pg [facility] MCHC (RBC) [Mass/Vol] 31.0 g/dL 28.4 - 34.8 g/dL [facility] MCV (RBC) [Entitic vol] 95.3 fL 82.6 - 102.9 fL [facility] NRBC Automated 0.0 0.0 per 100 WBC [facility] Platelet distribution width (Bld) [Ratio] 14.0 % 11.8 - 14.4 % [facility] Platelet mean volume (Bld) [Entitic vol] 8.8 fL 8.1 - 13.5 fL [facility] Platelets (Bld) [#/Vol] 273 10*3/uL [facility] RBC (Bld) [#/Vol] 4.30 10*6/uL 4.21 - 5.7 7 m/uL [facility] WBC (Bld) [#/Vol] 9.6 10*3/uL [facility] COVID-19, Rapidon 05-24-2021 SARS-CoV-2 (COVID-19) RNA MUKUL+probe Ql (Unsp spec) Not detected Not Detected [facility] Comment on above: Rapid NAAT: The [...] management decisions. Fact sheet for Healthcare Providers: https://www.fda.gov/media/697623/download Fact sheet for Patients: https://www.fda.gov/media/032622/download Methodology: Isothermal Nucleic Acid Amplification Specimen Description .NASOPHARYNGEAL SWAB [facility] Calcium, Ionicon 05-24-2021 Calcium [Moles/Vol] 1.31 mmol/L Normal 1.13-1.33 [facility] Comment on above: Performed By: #### I OCAL, MG, BRITTANIE #### [facility] [address] [place], [place] [phone] Home Health Manager: Good Melendez MD Calcium, Ionizedon Calcium [Moles/Vol] 1.31 mmol/L 1.13 - 1 .33 mmol/L [facility] Magnesiumon 05-24-2021 Magnesium [Mass/Vol] 2.0 mg/dL Normal 1.6-2.6 [facility] Comment on above: Performed By: #### C BC, PT, PTT, BMP #### [facility] [address] [place] [address] [phone] Home Health Manager: Good Melendez MD #### ANICOT #### [facility] [address] [place] [address] Home Health Manager: Troy Link MD Magnesium [Mass/Vol] 2.0 mg/dL 1.6 - 2.6 mg/dL [facility] No Panel Informationon 05-24 [facility] POC Glucose Fingerstickon Glucose [Mass/Vol] 199 mg/dL High 75 - 110 mg/dL [facility] Interpretation and review of laboratory results Abnormal [facility] Glucose [Mass/Vol] 209 mg/dL High 75 - 110 mg/dL [facility] Interpretation and review of laboratory results Abnormal [facility] POCT Glucoseon 05-24-2021 Glucose [Mass/Vol] 150 mg/dL High 74 - 100 mg/dL [facility] Interpretation and review of laboratory results Abnormal [facility] POTASSIUM (POC)on 05-24-2021 Potassium [Moles/Vol] 3.9 mmol/L 3.5 - 4.5 mmol/L [facility] Phosphoruson 05-24-2021 Phosphate [Mass/Vol] 3.8 mg/dL 2.5 - 4.5 mg/dL [facility] Phosphorus, Inorg.on 022 Phosphorus, Inorg. 3.8 mg/dL Normal 2.5-4.5 [facility] Comment on above: Performed By: #### C BC, PT, PTT, BMP #### [facility] [address] [place] [address] Home Health Manager: Good Melendez MD #### ANICOT #### [facility] [address] [place] [address] Home Health Manager: Troy Link MD [id number] 05-24-2021 SARS-CoV-2 (COVID-19) RNA MUKUL+probe Ql (Unsp spec) Not detected Normal NOTDET [facility] Comment on above: Result Comment: Rapid NAAT: [...] management decisions. Fact sheet for Healthcare Providers: https://www.fda.gov/media/514554/download Fact sheet for Patients: https://www.fda.gov/media/598646/download Methodology: Isothermal Nucleic Acid Amplification Performed By: #### C OVRB #### [facility] [address] [place], [place] [phone] Home Health Manager: Good Melendez MD Nicotineon 05-11-2021 6-HP-Wbyetock <2 Normal [facility] Comment on above: Performed By: #### C BC, PT, PTT, BMP #### [address] [phone] Home Health Manager: Good Melendez MD #### ANICOT #### [facility] [address] [place] [address] [phone] Home Health Manager: Troy Link MD Cotinine <2 Normal [facility] Comment on above: Performed By: #### C BC, PT, PTT, BMP #### [address] [phone] Home Health Manager: Good Melendez MD #### ANICOT #### [facility] [address] [place] [address] [phone] Home Health Manager: Troy Link MD Nicotine <2 Normal [facility] Comment on above: Result Comment: (NOT E) [...] developed and its performance characteristics determined by [facility]. It has not been cleared or approved by the [place] Food and Drug Administration. This test was performed in a CLIA certified laboratory and is intended for clinical purposes. Performed By: [facility] [address] [place] [id number] Pals Specialist: Ayse Diaz MD Performed By: #### C BC, PT, PTT, BMP #### [facility] [address] [place] [address] Home Health Manager: Good Melendez MD #### ANICOT #### [facility] [address] [place] [address] Home Health Manager: Troy Link MD Nicotine, Bloodon 05-11-2021 1-CR-Abdducxv <2 ng/mL [facility] Cot[facility] <2 ng/mL [facility] Nicotine <2 ng/mL [facility] Comment on above: (NOTE) Consistent with abstinence [...] developed and its performance characteristics determined by [facility]. It has not been cleared or approved by the [place] Food and Drug Administration. This test was performed in a CLIA certified laboratory and is intended for clinical purposes. Performed By: [facility] [address] [place] [address] Pals Specialist: Ayse Diaz MD [facility] EKG 12 LeadOrdered By: Unkno wn Result on 05-09-2021 Atrial Rate 122 BPM [facility] P Presidio 55 degrees [facility] P-R Interval 164 ms [facility] Q-T Interval 298 ms [facility] QRS Duration 84 ms [facility] QTc Calculation (Bazett) 424 ms [facility] R [place] -11 degrees [facility] T Pres[place] 42 degrees [facility] Ventricular Rate 122 BPM [facility] EKG 12 Leadon 05-09-2021 Sinus tachycardia Otherwise normal ECG No previous ECGs available [facility] Result, Unknown Provider - 05/09/2021 Sinus tachycardia Otherwise normal ECG No previous ECGs available [facility] [employer]: XR CHEST (2 VW)on 05-09-2021 XR [...] Helen Calero MD 05/09/21 Final result Normal [facility] No acute airspace disease identified. [facility] CON[facility] EXAMINATION: TWO XRAY VIEWS OF THE CHEST [...] effusion. No acute osseous abnormality is identified. [facility] Helen Calero MD - 05/09/2021 EXAMINATION: [...] identified. IMPRESSION: No acute airspace disease identified. [facility]: XR CHEST (2 VW)Ordered By: Carlos Calero on 05-09-2021 [facility] Phone: APTTon 05-08-2021 aPTT Coag (Bld) [Time] 23.1 s Normal 20.5-30.5 [facility] Comment on above: Result Comment: IV Heparin Therapy Range: 48.6-77.8 Performed By: #### C BC, PT, PTT, BMP #### [facility] [address] [place] [address] Home Health Manager: Good Melendez MD #### ANICOT #### [facility] [address] [place] [address] Home Health Manager: Troy Link MD aPTT Coag (Bld) [Time] 23.1 s [facility] Comment on above: IV Heparin Therapy Range: 48.6-77.8 Basic Metabolic Panelon 04-25 Anion gap [Moles/Vol] 15 mmol/L 9 - 17 mmol/L [facility] Calcium [Mass/Vol] 9.4 mg/dL 8.6 - 10. 4 mg/dL [facility] Chloride [Moles/Vol] 103 mmol/L 98 - 107 mmol/L [facility] CO2 [Moles/Vol] 19 mmol/L Low 20 - 31 mmol/L [facility] Creatinine [Mass/Vol] 1.59 mg/dL High 0.70 - 1.20 mg/dL [facility] GFR 55 mL/min Low >60 [facility] GFR Non- 45 mL/min Low >60 [facility] GFR/1.73 sq M.predicted MDRD (S/P/Bld) [Vol rate/Area] [facility] Comment on above: Average GFR for 50-5 9 years old: 93 mL/min/1.73sq m Chronic Kidney Disease: <60 mL/min/1.73sq m Kidney failure: <15 mL/min/1.73sq m eGFR calculated using average adult body mass. Additional eGFR calculator available at: http://www.DNS:Net.Hookflash/multiple_crcl_2012.htm Glucose [Mass/Vol] 141 mg/dL High 70 - 99 mg/dL [facility]eda Interpretation and review of laboratory results Abnormal [facility] Potassium [Moles/Vol] 5.3 mmol/L 3.7 - 5.3 mmol/L [facility] Sodium [Moles/Vol] 137 mmol/L 135 - 144 mmol/L [facility] Urea nitrogen (BldV) [Mass/Vol] 37 mg/dL High 6 - 20 mg/dL [facility] Basic Metabolic Profon 05-08 (cont.) Normal [facility] Comment on above: Result Comment: Aver age GFR for 50-59 years old: 93 mL/min/1.73sq m Chronic Kidney Disease: <60 mL/min/1.73sq m Kidney failure: <15 mL/min/1.73sq m eGFR calculated using average adult body mass. Additional eGFR calculator available at: http://www.BioCurity/multiple_crcl_2012.htm Performed By: #### C BC, PT, PTT, BMP #### [facility] [address] [place], [place] [id number] Home Health Manager: Good Melendez MD #### ANICOT #### [facility] [address] [place] [address] Home Health Manager: Troy Link MD Anion gap [Moles/Vol] 15 mmol/L Normal - [facility] Comment on above: Performed By: #### C BC, PT, PTT, BMP #### [facility] [address] [place], [place] [phone] Home Health Manager: Good Melendez MD #### ANICOT #### [facility] [address] [place] [address] Home Health Manager: Troy Link MD Calcium [Mass/Vol] 9.4 mg/dL Normal 8.6-10.4 [facility] Comment on above: Performed By: #### C BC, PT, PTT, BMP #### [facility] [address] [place] [address] [id number] Home Health Manager: Good Melendez MD #### ANICOT #### [facility] [address] [place] [address] Home Health Manager: Troy Link MD Chloride [Moles/Vol] 103 mmol/L Normal 98-107 [facility] Comment on above: Performed By: #### C BC, PT, PTT, BMP #### [address] [address] Home Health Manager: Good Melendez MD #### ANICOT #### [facility] [address] [place] [address] Home Health Manager: Troy Link MD CO2 [Moles/Vol] 19 mmol/L Low 20-31 [facility] Comment on above: Performed By: #### C BC, PT, PTT, BMP #### [address] [address] Home Health Manager: Good Melendez MD #### ANICOT #### [facility] [address] [place], [place] [id number] Home Health Manager: Troy Link MD Creatinine [Mass/Vol] 1.59 mg/dL High 0.70-1.20 [facility] Comment on above: Performed By: #### C BC, PT, PTT, BMP #### [address] [address] Home Health Manager: Good Melendez MD #### ANICOT #### [facility] [address] [place], [place] [id number] Home Health Manager: Troy Link MD GFR, Amer 55 mL/min Low >60 [facility] Comment on above: Performed By: #### C BC, PT, PTT, BMP #### [address] [address] Home Health Manager: Good Melendez MD #### ANICOT #### [facility] [address] [place] [address] Home Health Manager: Troy Link MD GFR,non Amer 45 mL/min Low >60 [facility] Comment on above: Performed By: #### C BC, PT, PTT, BMP #### [facility] [address] [place] [address] Home Health Manager: Good Melendez MD #### ANICOT #### [facility] [address] [place] [address] Home Health Manager: Troy Link MD Glucose [Mass/Vol] 141 mg/dL High 70-99 [facility] Comment on above: Performed By: #### C BC, PT, PTT, BMP #### [address] [address] Home Health Manager: Good Melendez MD #### ANICOT #### [facility] [address] [place] [address] Home Health Manager: Troy Link MD Potassium [Moles/Vol] 5.3 mmol/L Normal 3.7-5.3 [facility] Comment on above: Performed By: #### C BC, PT, PTT, BMP #### [address] [address] Home Health Manager: Good Melendez MD #### ANICOT #### [facility] [address] [place] [address] Home Health Manager: Troy Link MD Sodium [Moles/Vol] 137 mmol/L Normal 135-144 [facility] Comment on above: Performed By: #### C BC, PT, PTT, BMP #### [facility] [address] [place] [address] Home Health Manager: Good Melendez MD #### ANICOT #### [facility] [address] [place], [place] [id number] Home Health Manager: Troy Link MD Urea nitrogen [Mass/Vol] 37 mg/dL High 6-20 [facility] Comment on above: Performed By: #### C BC, PT, PTT, BMP #### [address] [address] Home Health Manager: Good Melendez MD #### ANICOT #### [facility] [address] [place], [place] [id number] Home Health Manager: Troy Link MD CBCon 05-08-2021 Erythrocyte distribution width (RBC) [Ratio] 14.1 % Normal 11.8-14.4 [facility] Comment on above: Performed By: #### C BC, PT, PTT, BMP #### [address] [id number] Home Health Manager: Good Melendez MD #### ANICOT #### [address] [phone] Home Health Manager: Troy Link MD Hematocrit (Bld) [Volume fraction] 43.6 % Normal 40.7-50.3 [facility] Comment on above: Performed By: #### C BC, PT, PTT, BMP #### [address] [id number] Home Health Manager: Good Melendez MD #### ANICOT #### [address] [phone] Home Health Manager: Troy Link MD Hemoglobin (Bld) [Mass/Vol] 13.5 g/dL Normal 13.0-17.0 [facility] Comment on above: Performed By: #### C BC, PT, PTT, BMP #### [address] [id number] Home Health Manager: Good Melendez MD #### ANICOT #### [address] [id number] Home Health Manager: Troy Link MD MCH (RBC) [Entitic mass] 29.4 pg Normal 25.2-33.5 [facility] Comment on above: Performed By: #### C BC, PT, PTT, BMP #### [address] [address] Home Health Manager: Good Melendez MD #### ANICOT #### [facility] [address] [place], [place] [id number] Home Health Manager: Troy Link MD MCHC (RBC) [Mass/Vol] 31.0 g/dL Normal 28.4-34.8 [facility] Comment on above: Performed By: #### C BC, PT, PTT, BMP #### [place] [address] Home Health Manager: Good Melendez MD #### ANICOT #### [address] [phone] Home Health Manager: Troy Link MD MCV (RBC) [Entitic vol] 95.0 fL Normal 82.6-102.9 [facility] Comment on above: Performed By: #### C BC, PT, PTT, BMP #### [place] [address] Home Health Manager: Good Melendez MD #### ANICOT #### [facility] [address] [place] [address] Home Health Manager: Troy Link MD NRBC Automated 0.0 per 100 WBC Normal 0.0 [facility] Comment on above: Performed By: #### C BC, PT, PTT, BMP #### [address] [address] Home Health Manager: Good Melendez MD #### ANICOT #### [address] [address] Home Health Manager: Troy Link MD Platelet mean volume (Bld) [Entitic vol] 8.7 fL Normal 8.1-13.5 [facility] Comment on above: Performed By: #### C BC, PT, PTT, BMP #### [address] [address] Home Health Manager: Good Melendez MD #### ANICOT #### [facility] [address] [place] [address] Home Health Manager: Troy Link MD Platelets (Bld) [#/Vol] 279 10*3/uL Normal 138-453 [facility] Comment on above: Performed By: #### C BC, PT, PTT, BMP #### [address] [address] Home Health Manager: Good Melendez MD #### ANICOT #### [facility] [address] [place] [address] Home Health Manager: Troy Link MD RBC (Bld) [#/Vol] 4.59 10*6/uL Normal 4.21-5.77 [facility] Comment on above: Performed By: #### C BC, PT, PTT, BMP #### [address] [address] Home Health Manager: Good Melendez MD #### ANICOT #### [facility] [address] [place] [address] Home Health Manager: Troy Link MD WBC (Bld) [#/Vol] 8.9 10*3/uL Normal 3.5-11.3 [facility] Comment on above: Performed By: #### C BC, PT, PTT, BMP #### [address] [id number] Home Health Manager: Good Melendez MD #### YASSINET #### [facility] [address] [place], [place] [id number] Home Health Manager: Troy Link MD Hematocrit (Bld) [Volume fraction] 43.6 % 40.7 - 50.3 % [facility] Hemoglobin.gastroin testinal spec 1 Ql (Stl) 13.5 g/dL 13.0 - 17.0 g/dL [facility] MCH (RBC) [Entitic mass] 29.4 pg 25.2 - 33.5 pg [facility] MCHC (RBC) [Mass/Vol] 31.0 g/dL 28.4 - 34.8 g/dL [facility] MCV (RBC) [Entitic vol] 95.0 fL 82.6 - 102.9 fL [facility] NRBC Automated 0.0 0.0 per 100 WBC [facility] Platelet distribution width (Bld) [Ratio] 14.1 % 11.8 - 14.4 % [facility] Platelet mean volume (Bld) [Entitic vol] 8.7 fL 8.1 - 13.5 fL [facility] Platelets (Bld) [#/Vol] 279 10*3/uL [facility] RBC (Bld) [#/Vol] 4.59 10*6/uL 4.21 - 5.7 7 m/uL [facility] WBC (Bld) [#/Vol] 8.9 10*3/uL [facility] No Panel Informationon 05-08 [facility] PTon 05-08-2021 INR Coag (PPP) [Relative time] 1.1 {INR} Normal [facility] Comment on above: Result Comment: Therapeutic Range: Moderate Anticoagulant Intensity: INR = 2.0-3.0 High Anticoagulant Intensity: INR = 2.5-3.5 Performed By: #### C BC, PT, PTT, BMP #### [facility] [address] [place], [place] [id number] Home Health Manager: Good Melendez MD #### YASSINET #### [facility] [address] [place] [address] Home Health Manager: Troy Link MD PT Coag (PPP) [Time] 11.2 s Normal 9.1-12.3 [facility] Comment on above: Performed By: #### C BC, PT, PTT, BMP #### [facility] [address] [place], [place] [id number] Home Health Manager: Good Melendez MD #### ANICOT #### [facility] [address] [place] [address] Home Health Manager: Troy Link MD Protime-INRon 05-08-2021 INR Coag (Bld) [Relative time] 1.1 {INR} [facility] Comment on above: Therapeutic Range: Moderate Anticoagulant Intensity: INR = 2.0-3.0 High Anticoagulant Intensity: INR = 2.5-3.5 PT Coag (PPP) [Time] 11.2 s [facility] XR CHEST (2 VW)on 05-08-2021 Radiology Study observation (narrative) [facility] Work Phone: CT LUMBAR SPINE W CONTRASTon 02-28-2021 CT LUMBAR SPINE W CONTRAST [facility] Department of Radiology [address] [place] [address] ======== Patient Name: SUKHDEEP SIMENTAL [...] above Electronically signed: Parvin Mg. Transcribed by: [email or web address], User Resident: Electronically Signed by: PARVIN MG @ 03/01/2021 02:21 PM Normal [facility] LUMBAR MYELOGRAMon LUMBAR MYELOGRAM [facility] Department of Radiology [address] [place] [phone] ======== Patient Name: SUKHDEEP SIMENTAL : 1965 Sex: M Age: Race: White Pt. Location: Patient Status: O Ordered Date: 02/13/2021 9:35:00 AM Completed Date: 02/28/2021 02:06 PM Requesting Provider: JASON KISER Attending Provider: JASON KISER Report Copy To: Signs & Symptoms: Z98.1 Arthrodesis status I10 History: [phone] Is patient on thinners? Eliquis hold 48hrs. 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 Consent was obtained. Timeout: [place] protocol timeout verification performed. PROCEDURE: Estimated blood [...] report. Electronically signed: Parvin Mg. Transcribed by: [email or web address], User Resident: OCHOA HONG Electronically Signed by: PARVIN MG @ 02/28/2021 03:13 PM I personally read this/these film(s) with this resident Normal [facility] LUMBAR SPINE 4 OR 5 [facility] LUMBAR SPINE 4 OR 5 [facility] Department of Radiology [address] [place] [address] ======== Patient Name: SUKHDEEP SIMENTAL [...] Extension Exam: LUMBAR SPINE 4 OR 5 [facility] ======== LUMBAR SPINE 4 OR 5 [facility] CLINICAL INFORMATION: pt states having lower back [...] Osteopenia. Electronically signed: Ahsan Farmer. Transcribed by: [email or web address], User Resident: Electronically Signed by: AHSAN FARMER @ 02/02/2021 10:14 AM Normal [facility] Comment on above: Order Comment: Views (X-RAY, LUMBAR SPINE): AP, Lateral, L5-S1 Spot, Flexion, Extension C REACTIVE PROTEINon 021 CRP [Mass/Vol] 9.6 mg/L High 0.0-7.0 [facility] Comment on above: Performed By: #### 6 1405 #### [facility] [address] CBC W/DIFFon 12-15-2020 ABS IMM GRANS 0.1 10*3/uL Normal 0.0-0.2 [facility] Comment on above: Performed By: #### 5 2666, [address] #### [facility] [address] ABS NEUTROPHILS 6.1 10*3/uL Normal 1.6-7.6 [facility] Comment on above: Performed By: #### 5 2326, [address]10 #### [facility] [address] [place] [address], [facility] Basophils (Bld) [#/Vol] 0.1 10*3/uL Normal 0.0-0.2 [facility] Comment on above: Performed By: #### 5 6506, [address] #### [facility] [address] [place] [address], [facility] Basophils/100 WBC (Bld) 0.8 % Normal 0.0-1.0 [facility] Comment on above: Performed By: #### 5 4996, 85858 #### [facility] [address] [place] [address], [facility] Eosinophils (Bld) [#/Vol] 0.4 10*3/uL Normal 0.0-0.5 [facility] Comment on above: Performed By: #### 5 650, [address] #### [facility] [address] [place] [address], [facility] Eosinophils/100 WBC (Bld) 4.1 % Normal 0.0-6.0 [facility] Comment on above: Performed By: #### 5 6505, 378[address] #### [facility] [address] [place] [address], [place] Erythrocyte distribution width (RBC) [Ratio] 12.6 % Normal 11.5-15.0 [facility] Comment on above: Performed By: #### 5 6505, 22447 #### [facility] [address] [place] [address], [facility] Hematocrit (Bld) [Volume fraction] 40.2 % Normal 39.0-50.0 [facility] Comment on above: Performed By: #### 5 6505, [address] #### [facility] [address] [place] [id number], [facility] Hemoglobin (Bld) [Mass/Vol] 12.6 g/dL Low 13.0-17.0 [facility] Comment on above: Performed By: #### 5 6505, 05152 #### [facility] [address] [place] [address], [facility] IMMATURE GRANS 0.7 % Normal 0.0-1.0 [facility] Comment on above: Performed By: #### 5 6505, 62759 #### [facility] [address] [place] [address], [facility] Lymphocytes (Bld) [#/Vol] 2.0 10*3/uL Normal 1.2-4.0 [facility] Comment on above: Performed By: #### 5 6505, 15765 #### [facility] [address] [place] [address], [place] Lymphocytes/100 WBC (Bld) 20.6 % Normal 20.0-45.0 [facility] Comment on above: Performed By: #### 5 6505, 24984 #### [facility] [address] [place] [address], [facility] MCH (RBC) [Entitic mass] 30.0 pg Normal 27.0-33.0 [facility] Comment on above: Performed By: #### 5 6505, 82462 #### [facility] [address] [place] [address], [facility] MCHC (RBC) [Mass/Vol] 31.3 g/dL Low 32.0-35.0 [facility] Comment on above: Performed By: #### 5 6505, 96763 #### [facility] [address] [place] [address], [facility] MCV (RBC) [Entitic vol] 95.7 fL Normal 82.0-98.0 [facility] Comment on above: Performed By: #### 5 6505, 68518 #### [facility] [address] [place] [address], [facility] Monocytes (Bld) [#/Vol] 1.2 10*3/uL High 0.1-1.0 [facility] Comment on above: Performed By: #### 5 6505, 98987 #### [facility] [address] [place] [address], [facility] MONOS 11.9 % Normal 5.0-12.0 [facility] Comment on above: Performed By: #### 5 6505, 72436 #### [facility] [address] [place] [address], [facility] Neutrophils/100 WBC (Bld) 61.9 % Normal 40.0-72.0 [facility] Comment on above: Performed By: #### 5 6505, 92011 #### [facility] [address] [place] [address], [facility] Nucleated RBC/100 WBC (Bld) [Ratio] 0 % Normal 0-0 [facility] Comment on above: Performed By: #### 5 6506, 83383 #### [facility] [address] [facility] [place] [address], [facility] PLAT CNT 335 10*3/uL Normal 150-400 [facility] Comment on above: Performed By: #### 5 6506, 86102 #### [facility] [address] [facility] [place] [address], [facility] RBC (Bld) [#/Vol] 4.20 10*6/uL Normal 4.20-5.70 [facility] Comment on above: Performed By: #### 5 6506, 02087 #### [facility] [address] [place] [address], [facility] WBC (Bld) [#/Vol] 9.86 10*3/uL Normal 4.00-10.60 [facility] Comment on above: Performed By: #### 5 6506, 89596 #### [facility] [address] [place], [place] [address] [place] [address] KNEE RIGHT 4 [facility] 1 KNEE RIGHT 4 S [facility] Department of Radiology [address] [place] [phone] ======== Patient Name: SUKHDEEP SIMENTAL : 1965 Sex: M Age: Race: White Pt. Location: OUT Patient Status: D Ordered Date: 12/15/2020 12:25:00 PM Completed Date: 12/15/2020 12:35 PM Requesting Provider: ROBBI MCKINNEY Attending Provider: ROBIB MCKINNEY Report Copy To: Signs & Symptoms: L03.115 cellulitis of rt lower limb History: Comments: evaluate Exam: KNEE RIGHT 4 S ======== KNEE RIGHT 4 S 12/15/2020 12:35 [...] report. Electronically signed: Alesha Jimenes. Transcribed by: [email or web address], User Resident: ALESHA CORDERO Electronically Signed by: ALESHA JIMENES @ 12/16/2020 09:18 AM I personally read this/these film(s) with this resident Normal [facility] Comment on above: Order Comment: evalu ate SEDIMENTATION RATEon 021 SED RATE 77 mm/hr High 0-10 [facility] Comment on above: Performed By: #### 5 6506, [address] #### [place] [address], [facility] COVID-19 Positive/Negativeon 05-05-2020 COVID-19 Positive/Negative Negative Negative [facility] Comment on above: Reference: NegativeT esting for SARS-CoV-2 by RT-PCRThis test was developed and its performance characteristics determined by [employer] ([employer]) and validated at the [place]. This test has not been FDA cleared [...] among non-blacks MDRD (S/P/Bld) [Vol rate/Area] mL/min/{1.73_m2} [facility] Otheron 05-05-2020 GFR/1.73 sq M.predicted MDRD (S/P/Bld) [Vol rate/Area] mL/min/{1.73_m2} [facility] Comment on above: GFR estimated refere nce range: According to KDOQI guidelines, <60 ml/min/1.73m2 is sufficient to diagnose a patient with chronic kidney disease. Pharmacy Creatinine Clearance (Chem N/A [facility] Coronavirus 2019 PCR Interp N/A [facility] Serum or plasma calcium yeni urement (mass/volume)on 05-05-2020 Calcium [Mass/Vol] 8.6 mg/dL 8.2-10.2 [facility] Serum or plasma chloride myrna surement (moles/volume)on 05-05-2020 Chloride [Moles/Vol] 104 mmol/L 95-114 [facility] Serum or plasma creatinine m easurement with calculation of estimated glomerular filtron 05-05-2020 Creatinine [Mass/Vol] 1.14 mg/dL 0.64-1.27 [facility] Serum or plasma glucose yeni urement (mass/volume)on 05-05-2020 Glucose [Mass/Vol] 178 mg/dL 70-100 [facility] Comment on above: ADA recommended refe rence rangeRandom Glucose Reference Range is dependent on time and content of last meal. Glucose of more than 200 mg/dL in a nonstressed, ambulatory subject supports the diagnosis of Diabetes Mellitus. Serum or plasma potassium me asurement (moles/volume)on 05-05-2020 Potassium [Moles/Vol] 4.0 mmol/L 3.5-5.1 [facility] Serum or plasma sodium measu rement (moles/volume)on 05-05-2020 Sodium [Moles/Vol] 141 mmol/L 136-146 [facility] Serum or plasma total carbon dioxide measurement (moles/volume)on 05-05-2020 CO2 [Moles/Vol] 27.4 mmol/L 22.0-30.0 [facility] Serum or plasma urea nitroge n measurement (mass/volume)on 05-05-2020 Urea nitrogen [Mass/Vol] 18 mg/dL 9-23 [facility] .eGFRon 06-10-2019 eGFR AA >60 Normal >=60 [facility] Comment on above: Result Comment: Resu lt = 0-14.9 mL/min/1.73 m2 Kidney failure or Dialysis Result = 15-29 mL/min/1.73 m2 Severe decrease in GFR Result = 30-59 mL/min/1.73 m2 Moderate decrease in GFR Result >= 60 mL/min/1.73 m2 Normal or increased GFR Performed By: #### E GFR #### [address] [address] eGFR Non-AA >60 Normal >=60 [facility] Comment on above: Result Comment: Resu lt [...] dosing. Performed By: #### E GFR #### [address] [address] Basic Metabolic Profileon Anion gap [Moles/Vol] 15 mmol/L Normal 7-17 [facility] Comment on above: Performed By: #### C [id number] #### [address] [address] Calcium [Mass/Vol] 9.8 mg/dL Normal 8.5-10.3 [facility] Comment on above: Performed By: #### C [id number] #### [address] [address] Chloride [Moles/Vol] 103 mmol/L Normal 98-110 [facility] Comment on above: Performed By: #### C [id number] #### [address] [address] CO2 [Moles/Vol] 27 mmol/L Normal 22-32 [facility] Comment on above: Performed By: #### C [id number] #### [address] [address] Creatinine [Mass/Vol] 0.98 mg/dL Normal 0.61-1.24 [facility] Comment on above: Performed By: #### C [id number] #### [address] [address] Glucose [Mass/Vol] 198 mg/dL High 70-99 [facility] Comment on above: Performed By: #### C [id number] #### [address] [address] Potassium [Moles/Vol] 4.0 mmol/L Normal 3.4-4.8 [facility] Comment on above: Performed By: #### C [id number] #### [address] [address] Sodium [Moles/Vol] 141 mmol/L Normal 133-142 [facility] Comment on above: Performed By: #### C [id number] #### [address] [address] Urea nitrogen [Mass/Vol] 18 mg/dL Normal 8-26 [facility] Comment on above: Performed By: #### C [id number] #### [address] [address] Urea nitrogen/Creatinine [Mass ratio] 18.4 mg/mg Normal 10.0-20.0 [facility] Comment on above: Performed By: #### C [id number] #### [address] [address] CBCon 06-10-2019 Erythrocyte distribution width (RBC) [Ratio] 13.0 % Normal 11.6-14.8 [facility] Comment on above: Performed By: #### C BCI #### [place] [id number] Hematocrit (Bld) [Volume fraction] 46.2 % Normal 41.0-53.0 [facility] Comment on above: Performed By: #### C BCI #### [address] [address] Hemoglobin (Bld) [Mass/Vol] 16.2 g/dL Normal 13.5-17.5 [facility] Comment on above: Performed By: #### C BCI #### [address] [address] MCH (RBC) [Entitic mass] 32.1 pg Normal 27.0-35.0 [facility] Comment on above: Performed By: #### C BCI #### [address] [address] MCHC (RBC) [Mass/Vol] 35.0 % Normal 31.0-37.0 [facility] Comment on above: Performed By: #### C BCI #### [address] [address] MCV (RBC) [Entitic vol] 91.6 fL Normal 80.0-100.0 [facility] [facility] Comment [facility] above: Performed By: #### C BCI #### [address] [address] Platelet mean volume (Bld) [Entitic vol] 7.5 fL Normal 6.7-10.6 [facility] Comment on above: Performed By: #### C BCI #### [address] [address] Platelets (Bld) [#/Vol] 263 x10*3/mcL Normal 150-350 [facility] Comment on above: Performed By: #### C BCI #### [address] [address] RBC (Bld) [#/Vol] 5.04 x10*6/mcL Normal 4.30-5.80 [facility] Comment on above: Performed By: #### C BCI #### [address] [address] WBC (Bld) [#/Vol] 9.7 x10*3/mcL Normal 4.5-11.0 [facility] Comment on above: Performed By: #### C BCI #### [address] [address] Hgb A1con 06-10-2019 HbA1c (Bld) [Mass fraction] 134 mg/dL High 68-114 [facility] Comment on above: Result Comment: Math ematical Calc approx. The mean gluc equivalency of A1c Performed By: #### H BA1C #### [address] [address] HbA1c (Bld) [Mass fraction] 6.3 % A1c High 4.0-5.6 [facility] Comment on above: Result Comment: Refe rence Range: 4.0 - 5.6 % Normal 5.7 - 6.4 % Pre-Diabetes > 6.5 % Diabetes Performed By: #### H BA1C #### [address] [address] MRSA, PCRon 06-10-2019 INR Coag (Bld) [Relative time] Negative Normal [facility] Comment on above: Result Comment: The [employer] Xpert MRSA Assay is a qualitative in [...] clinician. Performed By: #### M RSAPC #### [place] [id number] PTon 06-10-2019 INR Coag (PPP) [Relative time] 1.0 {INR} Normal <=3.5 [facility] Comment on above: Result Comment: INR has no normal range. INR Therapeutic range is: 2.0-3.0 (AF, CVA, TIAs, DVT prophylaxis, acute DVT) 2.5-3.5 (Mech heart valves, recurrent thrombosis/emboli) Performed By: #### P TINR #### [place] [id number] PT Coag (PPP) [Time] 11.9 s Normal 8.9-11.9 [facility] Comment on above: Performed By: #### P TINR #### [place] [id number] PTTon 06-10-2019 aPTT Coag (Bld) [Time] 23.0 s Normal 19.2-27.8 [facility] Comment on above: Performed By: #### P TT #### [place] [id number] XR Chest 2 Viewson 0 XR Chest [...] Electronically Signed in Other Vendor System) Normal [facility] XR LUMBAR SPINE (2-3 VIEWS)o n 04-16-2019 [...] Juwan Kumar MD 04/16/19 Final result Normal [facility] Limited range of motion without evidence of instability. Multilevel disc degeneration. [facility] NM EXAMINATION: 2 XRAY VIEWS OF THE LUMBAR SPINE 04/16/2019 10:21 am COMPARISON: None. HISTORY: ORDERING SYSTEM PROVIDED HISTORY: Injury Back pain after fall. FINDINGS: Lateral flexion extension views of the lumbar spine. With extension, no instability. Range of motion is reduced. With flexion, no substantial interval movement. No pathologic malalignment. Diffuse disc degeneration greatest in the lower lumbar spine. Spinous processes appear intact. [facility] NM Josafat, Mhpn Incoming Radiant Results From [employer] - 04/16/2019 11:16 AM EST EXAMINATION: 2 [...] without evidence of instability. Multilevel disc degeneration. [employer] [facility] [place] [place] LUMBAR SPINE WO CONTRASTo n 04-11-2019 [...] Ahsan Guidry MD 04/11/19 Final result Normal [facility] XR PELVIS (1-2 VIEWS)on 03-28 XR PELVIS [...] Ahsan Guidry MD 04/11/19 Final result Normal [facility] No acute findings. [facility] Work Phone: EXAMINATION: ONE XRA Y VIEW OF THE PELVIS 04/11/2019 1:24 pm COMPARISON: None. HISTORY: ORDERING SYSTEM PROVIDED HISTORY: fall right buttock pain TECHNOLOGIST PROVIDED HISTORY: fall right buttock pain Reason for Exam: fall buttocks pain Acuity: Acute Type of Exam: Initial FINDINGS: No acute fracture. No widening of the sacroiliac joints. Degenerative changes within the lower lumbar spine. Mild bilateral hip osteoarthritis. [facility] Work Phone: Josafat, Mhpn Incoming Radiant Results From [employer] - 04/11/2019 2:02 PM EST EXAMINATION: ONE [...] bilateral hip osteoarthritis. IMPRESSION: No acute findings. [facility] Work Phone: Vital Signs Date Time Vital Sign Value Performing Clinician Facility 02-13-2024 11:22-0500 Body mass index (BMI) [Ratio] 38.99 kg/m2 Ahsan NOVAK [facility] 02-13-2024 11:22-0500 Body weight 119.75 kg Ahsan NOVAK Work Phone[facility] 02-13-2024 11:22-0500 Diastolic blood pressure 100 mm[Hg] Ahsan NOVAK Work Phone[facility] 02-13-2024 11:22-0500 Heart rate 92 /min Ahsan NOVAK Work Phone[facility] 02-13-2024 11:22-0500 Respiratory rate 18 /min [facility]hsan NOVAK [facility] 02-13-2024 11:22-0500 Systolic blood pressure 150 mm[Hg] Ahsan NOVAK Work Phone: [facility] 12-05-2023 10:05-0400 Body height 175.3 cm Ahsan Flynn PA Work Phone: [facility] 12-05-2023 10:05-0400 Body mass index (BMI) [Ratio] 39.28 kg/m2 Ahsan Flynn PA Work Phone: [facility] 12-05-2023 10:05-0400 Body weight 120.66 kg Ahsan Flynn PA Work Phone: [facility] 12-05-2023 10:05-0400 Diastolic blood pressure 90 mm[Hg] Ahsan Flynn PA Work Phone: [facility] 12-05-2023 10:05-0400 Heart rate 91 /min Ahsan Flynn PA Work Phone: [facility] 12-05-2023 10:05-0400 Respiratory rate 16 /min Ahsan Flynn PA Work Phone: [facility] 12-05-2023 10:05-0400 SaO2% (BldA) [Mass fraction] 95 % Ahsan Flynn PA Work Phone: [facility] 12-05-2023 10:05-0400 Systolic blood pressure 131 mm[Hg] Ahsan Flynn PA Work Phone: [facility] 11-07-2023 11:090400 Body height 175.26 cm [facility] 11-07-2023 11:090400 Body mass index (BMI) [Ratio] 39 kg/m2 [place] 11-07-2023 11:090400 Body temperature 97.4 [degF] [facility] 11-07-2023 11:090400 Body weight 119.86 kg [facility] 11-07-2023 11:090400 Diastolic blood pressure 85 mm[Hg] [place] 11-07-2023 11:09-0400 Heart rate 88 /min [facility] 11-07-2023 11:09-0400 Respiratory rate 18 /min [facility] 11-07-2023 11:09-0400 SaO2% (BldA) [Mass fraction] 98 % [place] 11-07-2023 11:09-0400 Systolic blood pressure 123 mm[Hg] [place] 02-07-2023 14:37-0500 Body temperature 98.6 [degF] Riddhi Schabel PURCHASE ANALYST.ASSESSMENT MANAGER Work Phone: [facility] 02-07-2023 14:37-0500 Body weight 122.92 kg Riddhi Schabel PURCHASE ANALYST.ASSESSMENT MANAGER Work Phone: [facility] 02-07-2023 14:37-0500 Diastolic blood pressure 80 mm[Hg] Riddhi Schabel PURCHASE ANALYST.ASSESSMENT MANAGER Work Phone: [facility] 02-07-2023 14:37-0500 Heart rate 79 /min Riddhi Schabel PURCHASE ANALYST.ASSESSMENT MANAGER Work Phone: [facility] 02-07-2023 14:37-0500 SaO2% (BldA) [Mass fraction] 98 % Riddhi Schabel PURCHASE ANALYST.ASSESSMENT MANAGER Work Phone: [facility] 02-07-2023 14:37-0500 Systolic blood pressure 157 mm[Hg] Riddhi Schabel PURCHASE ANALYST.ASSESSMENT MANAGER Work Phone: [facility] 02-04-2023 09:16-0500 Blood Pressure Location Cecelia MURILLO [facility] 02-04-2023 09:16-0500 Diastolic blood pressure 88 mm[Hg] Cecelia MURILLO [facility] 02-04-2023 09:16-0500 Heart rate 79 /min Cecelia MURILLO [facility] 02-04-2023 09:16-0500 Respiratory rate 16 /min Cecelia MURILLO [facility] 02-04-2023 09:16-0500 Systolic blood pressure 139 mm[Hg] Cecelia MURILLO [facility] 12-20-2022 14:26-0400 Body height 175.3 cm Helen Morgan PA-C Work Phone: [facility] 12-20-2022 14:26-0400 Body weight 123.11 kg Helen Morgan PA-C Work Phone: [facility] 12-20-2022 14:26-0400 Diastolic blood pressure 84 mm[Hg] Helen Morgan PA-C Work Phone: [facility] 12-20-2022 14:26-0400 Heart rate 76 /min Helen Morgan PA-C Work Phone: [facility] 12-20-2022 14:26-0400 SaO2% (BldA) [Mass fraction] 97 % Helen Morgan PA-C Work Phone: [facility] 12-20-2022 14:26-0400 Systolic blood pressure 165 mm[Hg] Helen Morgan PA-C Work Phone: [facility] 12-06-2022 15:00-0400 Body height 175.26 cm Oumou Corinna Other [facility] Other 12-06-2022 15:00-0400 Body mass index (BMI) [Ratio] 39.9 kg/m2 Oumou Corinna Other [facility] Other 12-06-2022 15:00-0400 Body temperature 98.1 [degF] Oumou Corinna Other [facility] Other 12-06-2022 15:00-0400 Body weight 122.56 kg Oumou Corinna Other [facility] Other 12-06-2022 15:00-0400 Diastolic blood pressure 81 mm[Hg] Oumou Corinna Other [facility] Other 12-06-2022 15:00-0400 Respiratory rate 20 /min Oumou Corinna Other [facility] Other 12-06-2022 15:00-0400 SaO2% (BldA) [Mass fraction] 97 % Oumou Corinna Other [facility] Other 12-06-2022 15:00-0400 Systolic blood pressure 127 mm[Hg] Oumou Corinna Other [facility] Other 11-05-2022 14:17-0400 Body height 175.3 cm Edd Mathew MD Work Phone: [facility] 11-05-2022 14:17-0400 Body weight 123.97 kg Edd Mathew MD Work Phone: [facility] 11-05-2022 14:17-0400 Diastolic blood pressure 84 mm[Hg] Edd Mathew MD Work Phone: [facility] 11-05-2022 14:17-0400 Heart rate 66 /min Edd Mathew MD Work Phone: [facility] 11-05-2022 14:17-0400 SaO2% (BldA) [Mass fraction] 100 % Edd Mathew MD Work Phone: [facility] 11-05-2022 14:17-0400 Systolic blood pressure 156 mm[Hg] Edd Mathew MD Work Phone: [facility] 10-17-2022 15:41-0400 Blood Pressure Location [facility] [place] 10-17-2022 15:41-0400 Diastolic blood pressure 84 mm[Hg] Cj RICKL [facility] [place] 10-17-2022 15:41-0400 Heart rate 70 /min Cj NILL [facility] [place] 10-17-2022 15:41-0400 Respiratory rate 16 /min Cj RICKL [facility] [place] 10-17-2022 15:41-0400 Systolic blood pressure 118 mm[Hg] Cj RICKL [facility] [place] 06-21-2022 10:20-0400 Body height 175.26 cm Oumou Corinna Other [facility] Other 06-21-2022 10:20-0400 Body mass index (BMI) [Ratio] 40.02 kg/m2 Oumou Corinna Other [facility] Other 06-21-2022 10:20-0400 Body temperature 97.6 [degF] Oumou Corinna Other [facility] Other 06-21-2022 10:20-0400 Body weight 122.93 kg Oumou Corinna Other [facility] Other 06-21-2022 10:20-0400 Diastolic blood pressure 80 mm[Hg] Oumou Corinna Other [facility] Other 06-21-2022 10:20-0400 Respiratory rate 20 /min Oumou Corinna Other [facility] Other 06-21-2022 10:20-0400 SaO2% (BldA) [Mass fraction] 97 % Oumou Corinna Other [facility] [employer] Other 06-21-2022 10:20-0400 Systolic blood pressure 114 mm[Hg] Oumou Russellr Other [facility] [employer] Other 03-19-2022 09:48-0500 Blood Pressure Location Cecelia MURILLO [facility] 03-19-2022 09:48-0500 Diastolic blood pressure 88 mm[Hg] Cecelia MURILLO [facility] 03-19-2022 09:48-0500 Heart rate 78 /min Cecelia MURILLO [facility] 03-19-2022 09:48-0500 Respiratory rate 16 /min Cecelia MURILLO [facility] 03-19-2022 09:48-0500 Systolic blood pressure 139 mm[Hg] Cecelia MURILLO [facility] 01-11-2022 11:15-0500 Body temperature 98.1 [degF] PHYSICIAN NO [facility] 01-11-2022 11:15-0500 Diastolic blood pressure 88 mm[Hg] PHYSICIAN NO [facility] 01-11-2022 11:15-0500 Heart rate 79 /min PHYSICIAN NO [facility] 01-11-2022 11:15-0500 Respiratory rate 18 /min PHYSICIAN NO [facility] 01-11-2022 11:15-0500 SaO2% (BldA) [Mass fraction] 96 % PHYSICIAN NO [facility] 01-11-2022 11:15-0500 Systolic blood pressure 137 mm[Hg] PHYSICIAN NO [facility] 12-15-2021 12:20-0400 Body height 175.26 cm Estephanie Lowry Other [facility] Other 12-15-2021 12:20-0400 Body mass index (BMI) [Ratio] 41.49 kg/m2 Estephanie Lowry Other [facility] Other 12-15-2021 12:20-0400 Body temperature 98.6 [degF] Estephanie Hammondmond Other [facility] Other 12-15-2021 12:20-0400 Body weight 127.46 kg Estephanie Lowry Other [facility] Other 12-15-2021 12:20-0400 Diastolic blood pressure 96 mm[Hg] Estephanie Lowry Other [facility] Other 12-15-2021 12:20-0400 Respiratory rate 18 /min Estephanie Lowry Other [facility] Other 12-15-2021 12:20-0400 SaO2% (BldA) [Mass fraction] 97 % Estephanie Lowry Other [facility] Other 12-15-2021 12:20-0400 Systolic blood pressure 132 mm[Hg] Estephanie Lowry Other [facility] Other 10-25-2021 14:00-0400 Body height 175.26 cm Oumou Corinna Other [facility] Other 10-25-2021 14:00-0400 Body mass index (BMI) [Ratio] 42.02 kg/m2 Oumou Corinna Other [facility] Other 10-25-2021 14:00-0400 Body temperature 96.8 [degF] Oumou Corinna Other [facility] Other 10-25-2021 14:00-0400 Body weight 129.09 kg Oumou Corinna Other [facility] Other 10-25-2021 14:00-0400 Diastolic blood pressure 69 mm[Hg] Oumou Corinna Other [facility] Other 10-25-2021 14:00-0400 Respiratory rate 20 /min Oumou Corinna Other [facility] Other 10-25-2021 14:00-0400 SaO2% (BldA) [Mass fraction] 98 % Oumou Corinna Other [facility] Other 10-25-2021 14:00-0400 Systolic blood pressure 109 mm[Hg] Oumou Corinna Other [facility] Other 05-26-2021 10:45-0400 Body temperature 98.8 [degF] Octavio Mcclellan DO Work Phone: [facility] 05-26-2021 10:45-0400 Respiratory rate 18 /min Octavio Mcclellan DO Work Phone: [facility] 05-26-2021 10:45-0400 SaO2% (BldA) [Mass fraction] 98 % Octavio Mcclellan DO Work Phone: [facility] 05-26-2021 07:30-0400 Heart rate 105 /min Octavio Mcclellan DO Work Phone: [facility] 05-25-2021 23:20-0400 Diastolic blood pressure 85 mm[Hg] Octavio Mcclellan [employer] Work Phone: [facility] 05-25-2021 23:20-0400 Systolic blood pressure 130 mm[Hg] Octavio Mcclellan [employer] Work Phone: [facility] 05-24-2021 10:15-0400 Body height 175.3 cm Octavio Mcclellan [employer] Work Phone: [facility] 05-24-2021 10:15-0400 Body mass index (BMI) [Ratio] 50.65 kg/m2 Octavio Mcclellan [employer] Work Phone: [facility] 05-24-2021 10:15-0400 Body weight 155.58 kg Octavio Mcclellan [employer] Work Phone: [facility] 05-08-2021 11:04-0400 Body height 175.3 cm Stvz 2 [facility] 05-08-2021 11:04-0400 Body mass index (BMI) [Ratio] 51.98 kg/m2 Stv[facility] 2 [facility] 05-08-2021 11:04-0400 Body temperature 97.3 [degF] [facility] 05-08-2021 11:04-0400 Body weight 159.67 kg Stvz 2 [facility] 05-08-2021 11:04-0400 Diastolic blood pressure 83 mm[Hg] [facility] 05-08-2021 11:04-0400 Heart rate 126 /min [facility] 05-08-2021 11:04-0400 Respiratory rate 20 /min [facility] 05-08-2021 11:04-0400 SaO2% (BldA) [Mass fraction] 95 % [facility] 05-08-2021 11:04-0400 Systolic blood pressure 121 mm[Hg] [facility] 01-08-2020 14:04-0500 BMI (Body Mass Index) 47.99 kg/m2 [facility] 01-08-2020 14:04-0500 Body Temperature 96.69 [degF] [facility] 01-08-2020 14:04-0500 Body weight 147.42 [facility] 01-08-2020 14:04-0500 Height 175.3 cm [facility] 04-11-2019 12:42-0500 BMI (Body Mass Index) 44.3 kg/m2 [employer] Phone: 04-11-2019 12:42-0500 Body Temperature 97.39 [degF] [employer] Phone: 04-11-2019 12:42-0500 Body weight 136.08 kg [employer] Phone: 04-11-2019 12:42-0500 BP Diastolic 98 mm[Hg] [employer] Phone: 04-11-2019 12:42-0500 BP Systolic 196 mm[Hg] [employer] Phone: 04-11-2019 12:42-0500 Height 175.3 cm [employer] Phone: 04-11-2019 12:42-0500 Pulse (Heart Rate) 72 /min [employer] Phone: 04-11-2019 12:42-0500 Pulse Oximetry 96 % [employer] Phone: 04-11-2019 12:42-0500 Respiratory Rate 16 /min [employer] Phone: Encounters Encounter Date Encounter Type Care Provider Facility Start: 03-03-2024 End: 03-04-2024 Telephone encounter Cherelle Oleary RN [facility] Start: 02-13-2024 End: 02-13-2024 ambulatory AHSAN FLYNN [facility] Start: 02-13-2024 End: 02-13-2024 Office outpatient visit 15 minutes Ahsan Flynn PA Work Phone: [facility] Comment on above: Spinal stenosis, lum bar region, with neurogenic claudication (Primary Dx) Start: 02-03-2024 End: 02-03-2024 ambulatory Cecelia MURILLO Facility:[facility] Start: 02-03-2024 End: 02-03-2024 Patient encounter procedure Cecelia MURILLO [facility] Start: 12-05-2023 End: 12-05-2023 ambulatory AHSANDENIA FLYNN [facility] Start: 12-05-2023 End: 12-05-2023 Office outpatient visit 15 minutes Ahsan Flynn PA Work Phone: [facility] Comment on above: Spinal stenosis, lum bar region, with neurogenic claudication (Primary Dx) Start: 11-07-2023 End: 11-07-2023 ambulatory [facility] Work Phone: Start: 11-07-2023 End: 11-07-2023 Patient encounter procedure [facility] Work Phone: Start: 10-29-2023 Non-patient / Non-visit [facility] Work Phone: Start: 10-04-2023 Telephone encounter Edd crabtree MD Work Phone: Neurology Comment on above: Results Start: 08-15-2023 End: 08-15-2023 ambulatory [facility] Start: 07-30-2023 Telephone encounter Edd crabtree MD Work Phone: Neurology Comment on above: Appointment; Orders Start: 07-23-2023 Telephone encounter Edd crabtree MD Work Phone: Neurology Start: 05-08-2023 End: 05-13-2023 ambulatory Edd Mathew MD Work Phone: Neurosurgery Comment on above: Radiculopathy, lumba r region (Primary Dx) Start: 05-08-2023 End: 05-08-2023 Telemedicine consultation with patient Edd Mathew MD Work Phone: [facility] Start: 05-08-2023 Telephone encounter Cherelle Oleary RN [facility] Start: 05-07-2023 Telephone encounter Cherelle Oleary RN [facility] Start: 04-16-2023 Telephone encounter Edd crabtree MD Work Phone: Neurology Comment on above: Imaging Disc Start: 04-10-2023 Telephone encounter Edd crabtree MD Work Phone: Neurology Comment on above: PT Certification Start: 04-09-2023 Telephone encounter Edd crabtree MD Work Phone: Neurology Start: 03-25-2023 End: 03-25-2023 ambulatory EDD MATHEW Facility: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 Start: 02-07-2023 Telephone encounter Edd crabtree MD Work Phone: Neurosurgery Start: 02-04-2023 End: 02-04-2023 Patient encounter procedure Cecelia MURILLO [facility] Start: 01-23-2023 Telephone encounter Edd crabtree MD Work Phone: Neurology Comment on above: Received Outside Med ical Records ([facility]) Start: 12-21-2022 Telephone encounter Edd crabtree MD Work Phone: Neurology Comment on above: Medication Problem Start: 12-20-2022 End: 12-20-2022 Patient encounter procedure Helen Morgan PASoniyaC Work Phone: Neurosurgery Comment on above: 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 Start: 12-18-2022 Telephone encounter Derick Isabel [...] Evaluation and management of inpatient EDD MATHEW Facility:[facility] Start: 12-06-2022 End: 12-06-2022 ambulatory Oumou Weinstein Other [facility] Other Start: 12-06-2022 Office outpatient vi sit 25 minutes Oumou Weinstein [facility] Start: 11-21-2022 End: 11-21-2022 ambulatory CJ GALLOWAY Facility:[facility] Start: 11-21-2022 End: 11-21-2022 ambulatory DERICK ISABEL Facility:[facility] Start: 11-21-2022 End: 11-21-2022 ambulatory DERICK ISABEL Facility:[facility] Start: 11-21-2022 Encounter for other preprocedural examination DERICK ISABEL [facility] Start: 11-05-2022 End: 11-05-2022 Patient encounter procedure Edd Mathew MD Work Phone: Neurosurgery Comment on above: 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 Start: 10-17-2022 End: 10-17-2022 Patient encounter procedure Cj SQUIRES General Surgery Nill/Nathanael Sanchez Start: 10-12-2022 End: 10-13-2022 ambulatory [facility] Start: 10-04-2022 End: 10-05-2022 ambulatory [facility] Start: 09-20-2022 End: 09-20-2022 ambulatory Oumou Corinna Other [facility] Other Start: 09-20-2022 Chart abstracting None (Historical) Neurology Start: 09-20-2022 Telephone encounter Oumou Corinna [facility] Start: 08-15-2022 End: 08-15-2022 ambulatory [facility] Start: 07-06-2022 End: 07-07-[address] CECELIA MURILLO . Facility:[facility] Start: 06-22-2022 End: 06-23-2022 ambulatory [facility] Start: 06-21-2022 End: 06-21-2022 ambulatory Oumou Corinna Other [facility] Other Start: 06-21-2022 Office outpatient vi sit 25 minutes Oumou Corinna [facility] Start: 06-11-2022 End: 06-12-2022 ambulatory OUMOU CORINNA Facility:[facility] Start: 04-18-2022 ambulatory [facility] Start: 04-13-2022 End: 04-14-2022 [facility] Start: 04-03-2022 End: 04-03-2022 ambulatory Oumou Corinna Other [facility] Other Start: 04-03-2022 Telephone encounter Oumou Corinna [facility] Start: 03-28-2022 Evaluation and manag ement of inpatient [facility] Start: 03-28-2022 End: 03-29-2022 Evaluation and management of inpatient [facility] Start: 03-20-2022 Encounter for preprocedural laboratory examination DR DOCTOR MILES [facility] Start: 03-19-2022 End: 03-19-2022 Patient encounter procedure Cecelia MURILLO [facility] Start: 03-15-2022 End: 03-16-[address] DOCTOR MILES Facility:[facility] Start: 03-15-2022 End: 03-16-2022 Encounter for preprocedural laboratory examination DR DOCTOR MILES Facility:[facility] Start: 03-12-2022 End: 03-13-[address] CECELIA MURILLO . Facility:[facility] Start: 03-08-2022 End: 03-09-[address] DOCTOR MILES Facility:[facility] Start: 02-23-2022 ambulatory [facility] Start: 02-23-2022 End: 02-23-2022 ambulatory [facility] Start: 01-27-2022 Encounter for genera l adult medical examination without abnormal findings DR DERICK ISABEL . [facility] Start: 01-24-2022 End: 01-25-[address] DERICK ISABEL . Facility:[facility] Start: 01-24-2022 End: 01-25-2022 Encounter for general adult medical examination without abnormal findings DR DERICK ISABEL . Facility:[facility] Start: 01-22-2022 End: 01-22-2022 ambulatory Oumou Weinstein Other [employer] Other Start: 01-22-2022 Telephone encounter Oumou Weinstein [facility] Start: 01-17-2022 End: 01-17-2022 ambulatory [facility] Start: 01-12-2022 End: 01-13-2022 [facility] Start: 01-11-2022 End: 01-11-2022 ambulatory PHYSICIAN NO FAMILY Facility:[place] Start: 01-11-2022 End: 01-11-2022 ambulatory PHYSICIAN NO [facility] Work Phone: Start: 01-11-2022 End: 01-11-2022 Discharged Recurring PHYSICIAN NO [facility]-Infusion Therapy - O/P Start: 01-10-2022 End: 01-10-2022 ambulatory Oumou Corinna Other [employer] Other Start: 01-10-2022 Telephone encounter Oumou Corinna [facility] Start: 01-02-2022 End: 01-02-2022 ambulatory Oumou Corinna Other [employer] Other Start: 01-02-2022 Telephone encounter Oumou Corinna [facility] Start: 01-01-2022 End: 01-01-2022 ambulatory Oumou Corinna Other [employer] Other Start: 01-01-2022 Telephone encounter Oumou Corinna [facility] Start: 12-27-2021 Encounter for preprocedural laboratory examination [facility] Start: 12-27-2021 Evaluation and manag ement of inpatient [facility] Start: 12-27-2021 End: 01-02-2022 Encounter for preprocedural laboratory examination [facility] Start: 12-27-2021 End: 01-02-2022 Evaluation and management of inpatient [facility] Start: 12-21-2021 End: 12-22-[address] DERICK ISABEL . Facility: Start: 12-20-2021 End: 12-20-2021 ambulatory JASON KISER [facility] Start: 12-15-2021 Office outpatient vi sit 15 minutes Estephanie Lowry [facility] Start: 12-15-2021 Telephone encounter Oumou Corinna [facility] Start: 12-15-2021 End: 12-15-2021 ambulatory Estephanie Lowry [facility] Other Start: 12-15-2021 End: 12-15-2021 Departed Referred BUTTON FACING MACHINE OPERATOR-C Estephanie Lowry Work Phone: [facility] [place] Start: 12-01-2021 ambulatory JASON KISER [facility] Start: 12-01-2021 End: 12-01-2021 [facility] Start: 11-24-2021 End: 11-25-2021 ambulatory OUMOU CORINNA Facility:[facility] Start: 11-15-2021 End: 11-15-2021 ambulatory OUMOU CORINNA Facility:[facility] Start: 11-14-2021 End: 11-15-2021 ambulatory OUMOU CORINNA Facility:[facility] Start: 11-01-2021 End: 11-02-[address] DERICK ISABEL . Facility:[facility] Start: 10-31-2021 End: 11-01-[address] DERICK ISABEL . Facility:[facility] Start: 10-25-2021 End: 10-25-2021 ambulatory Oumou Corinna Other [place] [employer] Other Start: 10-25-2021 Office outpatient ne w 45 minutes Oumou Corinna [facility] Start: 10-18-2021 End: 10-19-[address] DERICK ISABEL . Facility:[facility] Start: 10-17-2021 Encounter for other specified special examinations DR DOCTOR MILES [facility] Start: 10-17-2021 Encounter for preprocedural laboratory examination DR DOCTOR MILES [facility] Start: 10-16-2021 End: 10-17-[address] DERICK ISABEL . Facility:[facility] Start: 10-16-2021 End: 10-17-2021 Encounter for other specified special examinations DR DOCTOR MILES Facility:[facility] Start: 10-13-2021 End: 10-21-2021 ambulatory PHYSICIAN BRADFORD Facility:[facility] Start: 10-10-2021 End: 10-11-[address] DERICK ISABEL . Facility:[facility] Start: 10-06-2021 End: 10-07-[address] DOCTOR MILES Facility:[facility] Start: 09-25-2021 End: 09-26-[address] [...] 07-18-2021 Evaluation and management of inpatient LEISA PERRY [facility] Start: 05-24-2021 End: 05-26-2021 ambulatory OCTAVIO Jj [facility] Start: 05-24-2021 End: 05-26-2021 Subsequent hospital visit by physician Octavio Mcclellan DO Work Phone: [facility] Ortho/Med Surg Comment on above: S/P laparoscopic sle may gastrectomy (Primary Dx) Start: 05-08-2021 End: 05-08-2021 Subsequent hospital visit by physician Jesus Mccracken 2 [facility] Pre-Admit Testing Comment on above: Canceled (Other) Start: 05-08-2021 End: 05-11-2021 ambulatory OCTAVIO Jj [facility] Start: 05-08-2021 End: 05-13-2021 ambulatory OCTAVIO Jj [facility] Start: 05-08-2021 End: 05-10-2021 Patient encounter status Stv Xr [facility] Start: 05-08-2021 End: 05-10-2021 Subsequent hospital visit by physician Glory Mccracken Xr [facility] Rad[facility] Comment on above: Pre-op chest exam Start: 05-08-2021 End: 05-12-2021 Subsequent hospital visit by physician Jesus Mccracken Rm 2 [facility] Pre-Admit Testing Start: 05-05-2020 End: 05-05-2020 Patient encounter procedure Derick Isabel -Pre-Surgical Testing Start: 02-04-2020 End: 02-04-2020 Subsequent hospital visit by physician Suzanne Pruett Work Phone: [facility] Echocardi[facility] Comment on above: Arrived Start: 01-08-2020 End: 01-08-2020 Subsequent hospital visit by physician Alexandro Muhammad Work Phone: [facility] Start: 01-08-2020 End: 01-08-2020 Office outpatient new 30 minutes Alexandro Muhammad Work Phone: [facility] Orthopedics Comment on above: Fluid retention in l egs (Primary Dx) Start: 06-10-2019 End: 06-11-2019 Patient encounter procedure [facility] Facility:[facility] Start: 04-16-2019 End: 04-19-2019 Patient encounter procedure ALINE BHATTI [facility] Start: 04-16-2019 End: 04-18-2019 Subsequent hospital visit by physician Nelson Xr Room 4 [facility] Comment on above: Injury Start: 04-11-2019 End: 04-11-2019 Emergency department patient visit [facility] Start: 04-11-2019 End: 04-11-2019 Emergency department patient visit [facility] Work Phone: [facility] ED Comment on above: Acute bilateral low back pain with right-sided sciatica (Primary Dx); Traumatic buttock pain Procedures Date Procedure Procedure Detail Performing Clinician Start: 11-21-2022 Antibody screen DERICK ISABEL Comment on above: Order Comment: Speci men Type: BLOOD SPECIMENOrdering Facility: [facility] Address: [address] [id number] Performed By: #### T [id number] ####CC MAIN BLOOD BANKCLIA [id number] [facility] [id number] OF [place] Start: 08-15-2022 Follow-up visit Follow-up JASON KISER Start: 02-25-2022 Arthroplasty of knee Pa hiram MURILLO Start: 02-25-2022 Lumbar spinal fusion Pa hiram MURILLO Start: 01-24-[address] SHERRI MURILLO . Comment on above: Performed By: #### P TT #### [facility] [address] [place] [address] Dr. Hguh Landis Start: 07-13-2021 Cystoscopic removal of ureteric stent Cecelia MURILLO Start: 07-13-2021 Extracorporeal shock wave lithotripsy of calculus of kidney Cecelia MURILLO Start: 06-29-2021 Cystoscopic insertio n of ureteric stent Cecelia MURILLO Start: 05-25-2021 HOME O2 EVAL (DESATU RATION SCREEN) Octavio Mcclellan [employer] Work Phone: Start: 05-25-2021 Assay of magnesium Zoran Hernandes MD Work Phone: Start: 05-25-2021 SURGICAL PATHOLOGY REPORT Octavio Mcclellan [employer] Work Phone: Start: 05-25-2021 Basic metabolic pane l calcium total Octavio Mcclellan [employer] Work Phone: Start: 05-24-2021 Glucose blood reagent strip Octavio Mcclellan [employer] Work Phone: Start: 05-24-2021 Calcium ionized Sonya I Desiree DO Work Phone: Start: 05-24-2021 Ecg routine ecg w/le ast 12 lds w/i&r Sonya I Desiree DO Work Phone: Start: 05-24-2021 End: 05-24-2021 Basic metabolic panel calcium total Octavio Mcclellan [employer] Work Phone: Start: 05-24-2021 End: 05-24-2021 Laps [...] Start: 05-08-2021 Assay of nicotine Ever Mcclellan [employer] Work Phone: Start: 05-08-2021 Basic metabolic pane l calcium total Octavio Mcclellan DO Work Phone: Start: 05-08-2021 Ecg routine ecg w/le ast 12 lds trcg only w/o i&r Octavio Mcclellan DO Work Phone: Start: 04-25-2021 Gastric sleeve Cj SQUIRES Start: 04-25-2021 Procedure on stomach Scarlet MURILLO Start: 03-28-2020 Cystoscopy Cecelia PICKETT Start: 02-24-2020 Extracorporeal shock wave lithotripsy of ureter Cecelia MURILLO Start: 04-16-2019 Radex spine lumbosac ral 2/3 views SUZANNE ACEVEDO Start: 04-16-2019 Radex spine lumbosac ral 2/3 views Aline Bhatti Work Phone: Start: 04-11-2019 Ct lumbar spine w/o contrast material SUZANNE ACEVEDO Start: 04-11-2019 Radiologic examinati on pelvis 1/2 views SUZANNE ACEVEDO Start: 04-11-2019 Ct lumbar spine w/o contrast material Cecilia Reyes Work Phone: Start: 04-11-2019 Radiologic examinati on pelvis 1/2 views Cecilia Ngopolo Work Phone: Start: 12-18-2017 Colonoscopy Cj BETANCUR Start: 05-25-2016 cysto rt retrograde rt ureteroscopy rt holmium laser lithotripsy rt j stent with string Cecelia MURILLO Ankle joint operations Kaykayadalberto MURILLO Bilateral replacemen t of knee joints Cecelia MURILLO Chondrectomy of semi lunar cartilage of knee Cj SQUIRES Cystoscopy Cecelia MURILLO Lumbar spinal fusion Cecelia MURILLO Urine culture PHYSICIAN TOM BUSBY Plan of Treatment Date Care Activity Detail Author Start: 01-24-2027 Prostate Cancer Screening Discussion Prostate Cancer Screening Discussion [facility] Start: 01-24-2027 Prostate specific antigen measurement Prostate Cancer Screening Discussion [facility] Start: 02-12-2025 Adult BMI Screening Adult BMI Screening [facility] Start: 02-12-2025 Tobacco Screening Tobacco Screening [facility] Start: 12-04-2024 Adult BMI Screening Adult BMI Screening [facility] Start: 12-04-2024 Tobacco Screening Tobacco Screening [facility] Start: 02-15-2024 Adult BMI Screening Adult BMI Screening [facility] Start: 02-15-2024 Tobacco Screening Tobacco Screening [facility] Start: 02-13-2024 End: 02-13-2024 Patient encounter procedure 02/13/2024 10:45 AM EST Office Visit [facility] [address] [place] [address] Ahsan Flynn PA [address] [place] [address] [facility] Start: 12-12-2023 Creatinine measurement Serum Creatinine [facility] Start: 12-12-2023 Serum Creatinine Serum Creatinine [facility] Start: 10-27-2023 Influenza vaccination [facility] Start: 10-07-2023 End: 10-07-2023 Follow-up encounter Neurosurgery Comment on above: FOLLOW UP Start: 2023 RSV Vaccine (1 - 1-dose 60+ series) RSV Vaccine (1 - 1-dose 60+ series) [facility] Start: 08-15-2023 End: 08-15-2023 Patient encounter procedure 08/15/2023 11:15 AM EDT Office Visit [facility] [address] [place] [id number] Ahsan Flynn, SCARLET [address] [place], [place] [id number] [facility] Start: 05-22-2023 Hemoglobin A1c measurement HbA1C [facility] Start: 05-22-2023 Hemoglobin A1c/Hemoglobin.total in Blood HbA1C [facility] Start: 02-25-2023 Behavioral Health Screening Behavioral Health Screening [facility] Start: 02-25-2023 Depression Assessment Depression Assessment [facility] Start: 01-20-2023 End: 01-19-2024 Radex spine lumbosacral 2/3 views XR LUMBAR LIMITED 2V AP/LAT Radiology Routine Lumbar adjacent segment disease with spondylolisthesis Expected: 01/20/2023, Expires: 01/19/2024 [facility] Work Phone: Comment on above: Expected: 01/20/2023, Expires: Start: 10-26-2022 Covid-19 Vaccine ( season) Covid-19 Vaccine ( season) [facility] Start: 10-26-2022 Influenza vaccination [facility] Start: 05-25-2022 Creatinine measurement Creatinine monitoring [facility] Start: 05-25-2022 Potassium monitoring Potassium monitoring [facility] Start: 05-08-2022 Creatinine measurement Creatinine monitoring [facility] Start: 05-08-2022 Potassium monitoring Potassium monitoring [facility] Start: 02-25-2022 DEPRESSION ASSESSMENT DEPRESSION ASSESSMENT [facility] Start: 01-03-2022 Hemoglobin A1c measurement A1C test (Diabetic or Prediabetic) [facility] Start: 01-03-2022 Lipid panel Lipid screen [facility] Start: 10-26-2021 Influenza vaccination Flu vaccine (Season Ended) [facility] Osmar celestin Start: 06-06-2021 End: 06-06-2021 Patient encounter procedure 06/06/2021 Office Visit Oncology Spencer Guy MD [address] [place], [place] [id number] [facility] Start: 06-02-2021 End: 06-02-2021 Patient encounter procedure 06/02/2021 Office Visit Bariatrics Octavio Mcclellan DO [address] [place] [phone] [facility] Min Invasive Bariatric Surg Start: 05-24-2021 End: 05-24-2021 Admission to same day surgery center [facility] Comment on above: XI ROBOTIC LAPOROSCOPIC GASTRECTOMY SLEE VE, LIVER BIOPSY, EGD- GI SCHEDULED XI ROBOTIC LAPOROSCO PIC GASTRECTOMY SLEEVE, LIVER BIOPSY, EGD- GI SCHEDULED, POSSIBLE OPEN Start: 05-24-2021 End: 05-24-2021 Laps gstrc rstrictiv px longitudinal gastrectomy [facility] Start: 05-24-2021 Subsequent hospital visit by physician 05/24/2021 Hospital Encounter IP Unit Octavio Mcclellan DO [address] [place] [phone] [facility] Start: 05-19-2021 End: 05-19-2021 Patient encounter procedure 05/19/2021 Appointment Pre-Admission Testing [facility] PRE ADMIT Start: 05-18-2021 End: 05-18-2021 Patient encounter procedure 05/18/2021 Office Visit BariatricOctavio Gray DO [address] [place] [address] [facility] Min Invasive Bariatric Surg Start: 10-26-2020 Influenza vaccination Flu vaccine (#1) [facility] Start: 04-04-2020 End: 04-04-2020 Office Visit 04/04/2020 Office Visit Cardiovascular Medicine Suzanne Pruett MD [address] [place] [address] [phone] [facility] Cardiology Start: 02-02-2020 End: 02-02-2020 Office Visit 02/02/2020 Office Visit Cardiovascular Medicine Suzanne Pruett MD [address] [place] [address] [phone] [facility] Start: 10-27-2019 Influenza vaccination INFLUENZA VACCINE (#1) [facility] Start: 10-26-2018 Influenza vaccination Flu vaccine (#1) [facility] [employer] Phone: Start: 09-10-2018 PROSTATE CANCER SCREENING DISCUSSION PROSTATE CANCER SCREENING DISCUSSION [facility] Start: 09-10-2013 Administration of varicella zoster vaccine Zoster (Shingles) Vaccine (1 of 2) [facility] Start: 09-10-2013 Colon cancer screen colonoscopy Colon cancer screen colonoscopy [facility] Phone: Start: 09-10-2013 Colonoscopy COLORECTAL CANCER SCREENING DISCUSSION [facility] Start: 09-10-2013 Prostate specific antigen measurement PROSTATE CANCER SCREENING DISCUSSION [facility] Start: 09-10-2013 Shingles Vaccine (1 of 2) Shingles Vaccine (1 of 2) [facility] Start: 09-10-2013 SHINGRIX VACCINE (1 of 2) SHINGRIX VACCINE (1 of 2) [facility] Start: 09-10-2013 Zoster vaccine hzv live for subcutaneous use ZOSTER (SHINGLES) VACCINE (1 of 2) [facility] Start: 09-10-2008 COLOGUARD (FIT-DNA) COLOGUARD (FIT-DNA) [facility] Start: 09-10-2008 Colonoscopy COLONOSCOPY [facility] Start: 09-10-2008 COLORECTAL CANCER SCREENING COLORECTAL CANCER SCREENING [facility] Start: 09-10-[address] COLONOGRAPHY [facility] Start: 09-10-2008 DIABETES SCREEN DIABETES SCREEN [facility] Start: 09-10-2008 Diabetes Screening Diabetes Screening [facility] Start: 09-10-2008 FECAL OCCULT BLOOD FECAL OCCULT BLOOD [facility] Start: 09-10-2008 Screening for malignant neoplasm of colon [facility] Start: 09-10-2008 SIGMOIDOSCOPY SIGMOIDOSCOPY [facility] Start: 2003 Diabetes screen Diabetes screen [facility] Phone: Start: 2003 Fasting lipid profile LIPID SCREENING [facility] Start: 2003 Lipid screen Lipid screen [facility] Phone: Start: 09-10-1998 Lipid 1996 panel - Serum or Plasma Lipid Screening [facility] Start: 09-10-1998 LIPID SCREEN LIPID SCREEN [facility] Start: 09-10-1982 DTaP,Tdap and Td Vaccines (1 - Tdap) DTaP,Tdap and Td Vaccines (1 - Tdap) [facility] Start: 09-10-1982 DTaP/Tdap/Td vaccine (1 - Tdap) DTaP/Tdap/Td vaccine (1 - Tdap) [facility] Start: 09-10-1982 Hepatitis B vaccine (1 of 3 - Risk 3-dose series) Hepatitis B vaccine (1 of 3 - Risk 3-dose series) [facility] Start: 09-10-1982 Third diphtheria, tetanus and acellular pertussis (DTaP) vaccination TDAP (ADULT) [facility] Start: 09-10-1982 Urine microalbumin profile [facility] Start: 09-10-1981 Adult BMI Follow Up Plan Adult BMI Follow Up Plan [facility] Start: 09-10-1981 Annual PCP Team Chronic Disease Visit Annual PCP Team Chronic Disease Visit [facility] Start: 09-10-1981 BP Controlled (<130/80) BP Controlled (<130/80) [facility] Start: 09-10-1981 Depression Screening Depression Screening [facility] Start: 09-10-1981 Diabetic retinal exam Diabetic retinal exam [facility] Start: 09-10-1981 Hepatitis B surface antibody level LDL Cholesterol [facility] Start: 09-10-1981 HEPATITIS C SCREENING HEPATITIS C SCREENING [facility] Start: 09-10-1981 Hepatitis C screening Hepatitis C Screening [facility] Start: 09-10-1981 HIV SCREENING HIV SCREENING [facility] Start: 09-10-1981 HIV screening HIV Screening [facility] Start: 09-10-1981 Tetanus vaccination TETANUS [facility] Start: 09-10-1981 Urine screening for protein Diabetic microalbuminuria test [facility] Start: 09-10-1978 HIV screen HIV screen [facility] Phone: Start: 09-10-1978 HIV screening HIV screen [facility] Start: 09-10-1976 HIV screening HIV SCREENING DISCUSSION [facility] Start: 1975 Depression Screen Depression Screen [facility] Start: 1975 Depression Screening Depression Screening [facility] Start: 09-10-1974 DTaP/Tdap/Td vaccine (1 - Tdap) DTaP/Tdap/Td vaccine (1 - Tdap) [facility] Phone: Start: 09-10-1973 3 comp foot exam completed Diabetic Foot Exam [facility] Start: 09-10-1973 Diabetic foot examination Diabetic foot exam [facility] Start: 09-10-1973 Glaucoma screening Dilated Retinal Exam [facility] Start: 09-10-1973 Hepatitis B screening Urine Albumin:Creatinine Ratio [facility] Start: 09-10-1973 Hepatitis C antibody, confirmatory test Dilated Retinal Exam [facility] Start: 09-10-1969 Pneumococcal 0-64 years Vaccine (1 of 2 - PPSV23) Pneumococcal 0-64 years Vaccine (1 of 2 - PPSV23) [facility] Start: 09-10-1969 Pneumococcal vaccination [facility] Start: 09-10-1968 COVID-19 Vaccine (1) COVID-19 Vaccine (1) [facility] Start: 03-13-1964 COVID-19 VACCINE (#1) COVID-19 VACCINE (#1) [facility] Start: 1963 Hepatitis C antibody, confirmatory test HEPATITIS C VIRUS SCREENING [facility] Start: 1963 Hepatitis C screen Hepatitis C screen [facility] Phone: Start: 1963 Hepatitis C screening Hepatitis C screen [facility] Start: 1963 Potassium [Moles/Vol] POTASSIUM [facility] Bacteria identified in Urine by Culture [place] Chlamydia trachomati s DNA [Presence] in Unspecified specimen by MUKUL with probe detection [facility] Work Phone: Continuous pulse oximetry Pulse oximetry, continuous Respiratory Care Routine Every 4hr until discontinued starting 05/24/2021 [employer] Phone: Comment on above: Every 4hr until discontinued starting CT LUMBAR SPINE WO CONTRAST CT LUMBAR SPINE WO CONTRAST Imaging STAT 04/11/2019 1:43 PM [employer] Phone: Neisseria gonorrhoea e DNA [Presence] in Unspecified specimen by MUKUL with probe detection [facility] Work Phone: Oxygen therapy [[facility] Data Set] Initiate Oxygen Therapy Protocol Respiratory Care Routine As Needed until discontinued starting 05/24/2021 [facility] Work Phone: Comment on above: As Needed until discontinued starting Radiography for bone length studies XR BONE LENGTH STUDY Imaging Routine Hx of total knee arthroplasty, right 01/08/2020 1:37 PM [employer] Renal function 2000 panel - Serum or Plasma [place] Spirometry panel Incentive silverio metry Respiratory Care Routine Every 2hr while awake until discontinued starting 05/24/2021 [employer] Phone: Comment on above: Every 2hr while awake until discontinued starting 05/24/2021 Surgical Pathology Surgical Path ology Lab Routine Release Upon Ordering for 1 Occurrences starting 05/24/2021 [employer] Phone: Comment on above: Release Upon Ordering for 1 Occurrences starting 05/24/2021 Trichomonas vaginali s DNA [Presence] in Unspecified specimen by MUKUL with probe detection [facility] Work Phone: X-ray of right knee XR KNEE RIGH T 3 VIEWS Imaging Routine Hx of total knee arthroplasty, right 01/08/2020 1:37 PM [facility] End: 06-06-2024 XR Lumbar spine AP and Lateral XR LUMBAR LIMITED 2V AP/LAT Radiology Routine Radiculopathy, lumbar region 1 Occurrences starting 05/08/2023 until 06/06/2024 [facility] Work Phone: Comment on above: 1 Occurrences starting 05/08/2023 until 06/06/2024 [facility] Immunizations Immunization Date Immunization Notes Care Provider Jazmin mariscal 05-08-2023 influenza virus vacc ine, unspecified formulation Edd Mathew MD Work Phone: [facility] Payers Date Payer Category Payer Self-pay [id number] 2019 Private Health Insurance xxx [id number] [id number] 2019 Worker's Compensation 2019 Unknown [facility] FUNDED xxxxxxxx 2019-Present [phone] [facility] [address] [place] [id number] xxxxxxxx [id number]. 2.7.3.243171.315 2019 Unknown [id number] 2019 Unknown [id number] 2019 Unknown ATEME [facility] FUNDED xxxxx 2019-Present [phone] [facility] [address] [place] [id number] xxxxx 1.2.840.115383.1.13.239. 2.7.3.845516.315 2019 Unknown [id number]. 1.13.159. 2.7.3.720594.315 2019 Worker's Comp Other [facility] 1.2.840.486198.1.13.424. 2.7.9.893714.306.315 2019 Unknown [id number] 2014 Private Health Insurance [id number] 2014 Private Health Insurance BRENTON PARIKH xxxxxxxxxx 2014-Present [phone] [facility] [address] [place] [address] xxxxxxxxxx 1.2.840.456610.1.13.239. 2.7.3.006053.315 2013 Private Health Insurance 1965 Unknown [id number] 2.16.840.1.557257.3.579. 2.176 1963 Unknown [id number] 2.16.840.1.065693.3.579. 2.176 1963 Unknown [id number] 2.16.840.1.701291.3.579. 2.176 1963 Unknown [id number] 2.16.840.1.653789.3.579. 2.196 1963 Unknown [id number] 2.16.840.1.823924.3.579. 2.175 1963 Unknown [id number] 2.16.840.1.468064.3.579. 2.647 1963 Unknown [id number] 2.16.840.1.216934.3.579. 2.593 1963 Unknown [id number] 2.16.840.1.193271.3.579. 2.593 1963 Unknown [id number] 2.16.840.1.199660.3.579. 2.593 1963 Unknown [id number] 2.16.840.1.250358.3.579. 2.593 1963 Unknown [id number] 2.16.840.1.066180.3.579. 2.593 1963 Unknown [id number] 2.16.840.1.623462.3.579. 2.59 1963 Unknown [id number] .840.1.456594.3.579. 259 1963 Unknown [id number] .16840.1.640197.3.579. 259 1963 Unknown [id number] .840.1.971464.3.579. 2 1963 Unknown [id number] .840.1.304837.3.579. 259 1963 Unknown [id number] .840.1.806333.3.579. 2 1963 Unknown [id number] 2.840.1.370325.3.579. 259 1963 Unknown [id number] 04.12.830.1.791402.3.579. 2 1963 Unknown [id number] .840.1.835265.3.579. 259 1963 Unknown [id number] 840.1.359493.3.579. 2 1963 Unknown [id number] 840.1.363861.3.579. 259 1963 Unknown [id number] 840.1.523306.3.579. 259 1963 Unknown [id number] 840.1.905174.3.579. 259 1963 Unknown [id number] 840.1.826009.3.579. 259 1963 Unknown [id number] 840.1.918907.3.579. 259 1963 Unknown [id number] 840.1.018791.3.579. 2 1963 Unknown [id number] 2.16.840.1.310455.3.579. 2.593 1963 Unknown [id number] 2.16.840.1.698773.3.579. 2.593 1963 Unknown [id number] 2.16.840.1.359100.3.579. 2.727 1963 Unknown [id number] 2.16.840.1.288256.3.579. 2.1286 1963 Unknown [id number] 2.16.840.1.865618.3.579. 2.1286 1963 Unknown [id number] 2.16.840.1.217009.3.579. 2.1286 1959 Unknown [id number] 1.2.840.546469.1.13.239. 2.7.3.442330.315 1959 Unknown [id number] Self-pay Self Pay [facility] [id number] Unknown [id number] 2.16.840.1.091002.3.579. 2.531 Unknown [id number] 2.16.840.1.520041.3.579. 2.531 Unknown [id number] 2.16.840.1.825817.19 Social History Date Type Detail Facility Start: 04-11-2019 End: 02-15-2022 Tobacco smoking status NHIS Never smoker [facility] Start: 04-11-2019 End: 05-25-2021 Alcohol intake Lifetime non-drinker (finding) [facility] Phone: Start: 04-11-2019 End: 01-08-2020 History SDOH Alcohol Frequency 1 [facility] Phone: Start: 1965 Sex Assigned At Not on file M Birthday [facility] Phone: Start: 01-08-2020 End: 02-15-2022 Tobacco use and exposure Never used [employer] Start: 1965 Sex Assigned At Male F [facility] Start: 04-08-2021 End: 05-24-2021 Exposure to SARS-CoV-2 (event) Not sure [facility] Work Phone: Start: 04-07-2020 End: 11-05-2022 Sex Assigned At [facility] Start: 01-26-2014 End: 03-25-2023 Alcohol intake Current non-drinker of alcohol (finding) [facility] Tobacco smoking status Never [facility] Start: 04-07-2020 End: 11-05-2022 History of Social function [facility] Start: 02-14-2023 End: 02-13-2024 Alcohol intake Ex-drinker (finding) [employer] Start: 09-30-2014 Sex Male (finding) [facility] Procedure Code Equipment Code Equipment Origin al Text Equipment Identifier Dates CYSTOSCOPY W/ HO MIUM LASER Octavio ARAIZA MD 03/28/20 Unknown Abdomen {[id number] Start: 03-28-2020 Screw Darby 3 Alicia nium Set [facility] Spine - [id number] Start: 12-07-2022 Screw Darby 3 Serr eladio 6.5mm 50mm Bone Polyaxial Nonsterile Spine - [id number] Start: 12-07-2022 Vitoss Ba2x Bioactive Bone Graft Substitute 5.0cub Cm [id number] Start: 12-07-2022 Cage Tritanium 6 d [id number] Spinal Sterile Latex Free Lumbar Posterior - [id number] Start: 12-07-2022 Cage Tritanium 6 d [id number] Spinal Sterile Latex Free Lumbar Posterior - [id number] Start: 12-07-2022 Screw Darby 3 Serr eladio 6.5mm 45mm Bone Polyaxial Nonsterile Spine - [id number] Start: 12-07-2022 Goals Date Patient Goal Desired Activity /State Functional Status Date Assessment Result Facility 02-04-2023 Functional Status N/A [facility] 10-17-2022 Functional Status N/A [facility] 03-19-2022 Functional Status N/A [facility] Clinical Notes 05-03-2021 to 03-03-2024 Telephone Encounter - Cherelle Oleary RN - 03/03/2024 10:14 AM ESTTelephone Encounter - Cherelle Oleary RN - 03/03/2024 10:14 AM SCARLET Enriquez - 02/13/2024 10:45 AM EST Note Date & Type Note Facility 03-03-2024 Miscellaneous Notes Patient called today to follow up on his request for a written statement stating that provider feels that patient is totally disabled. Patient is informed that this office does not write such letters, however, office notes can be faxed to his ip attorney's office if that would be beneficial. documented in this encounter [facility] 03-03-2024 Telephone encounter Note Patient called today to follow up on his request for a written statement stating that provider feels that patient is totally disabled. Patient is informed that this office does not write such letters, however, office notes can be faxed to his ip attorney's office if that would be beneficial. [facility] 02-13-2024 History of Presen t illness Narrative [facility] [address] [place] [address] Patient: Sukhdeep Simental Sex: male : 1965 Age: 58 y.o. PCP: DERICK ISABEL MD 02/13/2024 Sukhdeep Simental is here for a(n) follow up for his [facility] work injury. Sukhdeep is unable to ambulate without use of a walker. Attempting to ambulation without use of walker results in patient falling. He is unable to go upstairs due to right leg weakness. He must reposition himself frequently while sitting. He is barely able to bend over, he cannot squat. Reaching pulls and causes right arm weakness. 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 Chief Complaint Patient presents with Back Pain [facility] HPI: 12/07/2022 L2/3 fusion and revised L3/4, S1 at [facility] per patient. Bilateral SI joint injection on 04/17/2021 with 10% relief, pain is worse. 07/07/21 Bilateral L3/4 Medial branch block with no relief. right L 3, 4 nerve root injection on 09/01/2021 with no relef. Back Pain This is a chronic problem. The current episode started more than 1 year ago (surgery 10/16/18 discectomy and 07/10/2019 fusion in [place]). The problem occurs constantly. The problem is unchanged. The pain is present in the lumbar spine, gluteal and thoracic spine. The quality of the pain is described as aching, stabbing, shooting and cramping (spike pain). The pain radiates to the right thigh (states pain to right thigh is 60% better than previous visit). The pain is at a severity of 8/10 (higher pain level in the mornings (9/10)). The pain is severe. The pain is The same all the time. The symptoms are aggravated by standing, sitting, lying down, bending and twisting (walking). Stiffness is present In the morning. Associated symptoms include leg pain (Right anterior/posterior thigh 60% better post surgery), numbness (Right hand d/t positioning from surgery from right elbow to middle, ring and pinky fingers) and weakness (BLE uses wheeled seated walker). Pertinent negatives include no bladder incontinence, bowel incontinence, chest pain, fever or tingling. (Burning ) Risk factors include sedentary lifestyle. Treatments tried: PT/HEP (current) with pool therapy, surgery x's2 (last 07/14), inj w/ dr larose (06/15), rest/heat/ice, meds: NSAIDs (celebrex,vol po/gel,motrin), norco, dilaudid, perc., oxy, lyrica, daypro, indometicin, bacof/flexiri/zanflex, biofreeze, campoz, hemp oil, The treatment provided mild relief. The effect of pain on patient's ADLS: Severe Impairment. Past Medical History: Diagnosis Date Arthritis Chronic kidney disease stones Chronic pain disorder Claustrophobia Diabetes mellitus type 2, controlled ([facility]) Fractures Hyperlipidemia Hypertension Joint pain Low back pain Major depression Obesity Osteoarthritis Pulmonary embolism ([facility]) Seasonal allergies Sleep apnea does not use machine Sleep apnea Visual impairment glasses Past Surgical History: Procedure Laterality Date ANKLE SURGERY spurs removed INJECTION BLOCK EPIDURAL CAUDAL STEROID N/A 10/27/2021 Performed by Darren Lackey MD at [facility] INJECTION BLOCK NERVE MEDIAL BRANCH: bilat L 3/4 Bilateral 07/07/2021 Performed by Darren Lackey MD at [facility] INJECTION BLOCK SACROILIAC JOINT Bilateral 04/17/2021 Performed by Darren Lackey MD at [facility] INJECTION SPINE TRANSFORAMINAL: right L 3,4 Nroot Right 09/01/2021 Performed by Darren Lackey MD at [facility] JOINT REPLACEMENT knees- right x2, left x1 KNEE SURGERY rt knee inf removed tka added rods LITHOTRIPSY LUMBAR DISCECTOMY L4-5 Left 10/16/2018 Performed by Suzanne Silverio DO at [facility] 04/2021 sleeve Allergies Allergen Reactions Loratadine Other reaction(s): rash hives Chlorhexidine Red discoloration for one hour x5 years ago Iodine Rash Topical iodine-no dye per pain clinic Povidone-Iodine Rash Other reaction(s): rash, redness Family History Problem Relation Age of Onset No Known Problems Mother Cancer Father jaw Social History Socioeconomic History Marital status: Spouse name: Not on file Number of children: Not on file Years of education: Not on file Highest education level: Not on file Occupational History Not on file Tobacco Use Smoking status: Never Smokeless tobacco: Never Substance and Sexual Activity Alcohol use: Not Currently Drug use: Never Sexual activity: Defer Other Topics Concern Not on file Social History Narrative Not on file Social Drivers of Health Financial Resource Strain: Low Risk (03/28/2022) [facility] Overall Financial Resource Strain (CARDIA) Difficulty of Paying Living Expenses: Not hard at all Food Insecurity: No Food Insecurity (12/05/2023) Hunger Screening Food Insecurity - Worry: Never True Food Insecurity - Inability: Never True Transportation Needs: Unknown (03/28/2022) Received from [facility] PRAPARE - Transportation Lack of Transportation (Medical): No Lack of Transportation (Non-Medical): Not on file Physical Activity: Inactive (12/01/2021) Received from [facility] Exercise Vital Sign Days of Exercise per Week: 0 days Minutes of Exercise per Session: 20 min Stress: No Stress Concern Present (12/01/2021) Received from [facility] [place] [employer] - Occupational Stress Questionnaire Feeling of Stress : Not at all Social Connections: Moderately Isolated (12/01/2021) Received from [facility], [facility] Social Connection and Isolation Panel [NHANES] Frequency of Communication with Friends and Family: More than three times a week Frequency of Social Gatherings with Friends and Family: Once a week Attends Islam Services: Never Active Member of Clubs or Organizations: No Attends Club or Organization Meetings: Never Marital Status: Interpersonal Safety: Unknown (04/18/2023) Received from [facility] [place] Safety [place] Fear of Current or Ex-Partner: Not on file Emotionally Abused: Not on file Physically Abused: Not on file Sexually Abused: Not on file Physically or Sexually Abused: Not on file Housing Instability: Unknown (03/28/2022) Received from [facility] Housing Stability Vital Sign Unable to Pay for Housing in the Last Year: Not on file Number of Places Lived in the Last Year: Not on file Unstable Housing in the Last Year: No Review of Systems Constitutional: Negative. Negative for fever. HENT: Negative. Eyes: Negative. Respiratory: Negative. Cardiovascular: Negative for chest pain. Gastrointestinal: Negative. Negative for bowel incontinence. Endocrine: Negative. Genitourinary: Negative. Negative for bladder incontinence. Skin: Negative. Allergic/Immunologic: Negative. Neurological: Positive for weakness (BLE uses wheeled seated walker) and numbness (Right hand d/t positioning from surgery from right elbow to middle, ring and pinky fingers). Negative for tingling. Hematological: Negative. Psychiatric/Behavioral: Negative. Vital Signs: BP (!) 150/100 Pulse 92 Resp 18 Wt 119.7 kg (264 lb) BMI 38.99 kg/m Physical Exam: GENERAL - Healthy patient that appears stated age. HEENT - Normocephalic / Atraumatic, Extraoccular movements intact, trachea midline, thyroid within normal limits. CV - pulse regular, Warm extremities with appropriate color of nailbeds. RESP - No obvious wheezing, No Shortness of Breath, No overexertion response to exam maneuvers. COORDINATION - remains intact. PSYCH - Alert and Oriented x4, Attentive and appropriate, constitutionally normal, displays normal mood and affect per situation, answered questions appropriately during examination, demonstrated appropriate attention during discussion, demonstrated appropriate cognitive reasoning and understanding of the medical condition by asking appropriate questions regarding the diagnosis and risks/benefits/alternatives of treatment modalities. No obvious deficits in memory, reasoning, or intellect. Lumbar: SKIN - No rashes or bruising in the area of the patient s pain. LYMPH NODES - demonstrate no obvious enlargement. EXTREMITIES - Lower extremities are warm, with minimal edema and palpable pulses. Tenderness to palpation noted in the lumbar spine and paraspinal musculature. Pain is elicited with flexion, extension, and lateral rotation of the lumbar spine. Range of motion is diminished with these motions due to pain. Facet palpation is noted to be somewhat tender and facet loading maneuvers are mildly positive, but not concordant with the patient s normal pain complaints. STRENGTH - noted to be 5 out of 5 all muscle groups left lower extremity including muscles involving hip flexion and abduction, knee flexion and extension, as well as foot dorsiflexion and plantarflexion. Chronic right lower extremity weakness. No notable atrophy, fasciculations or spasm. SENSORY - No notable sensory deficits in the bilateral lower extremities to touch or pinprick in all dermatomal distributions with exception to decreased sensation in the Right L4 and L5 levels. Straight Leg Raise is Positive on the Right Gait is assisted with ambulatory aid(s): Walker. Assessment/Treatment Plan: Sukhdeep was seen today for back pain. Diagnoses and all orders for this visit: Spinal stenosis, lumbar region, with neurogenic claudication Monitor Follow up as needed The medications prescribed have been reviewed for medication interactions/contraindications and/or for upcoming procedures: continue current medication regimen without any changes. DISCUSSION: Treatment options discussed with patient and all questions answered to patient's satisfaction. Discussed the rules and regulations surrounding prescription of opioids and compliance at length. Failure to follow the rules and regulation will result in tapering and discontinuation of medications if applicable. Prescribed medication that requires intensive monitoring for toxicity We do not currently prescribe any controlled substance from this practice. At this time it does appear that the patient s pain is under adequate control with conservative care. It is felt that we should continue this approach and continue to monitor these symptoms and address them again in the future if they become more problematic. This approach was discussed with the patient and they are in agreement. The spine model was demonstrated and MRI was reviewed and used to explain the condition. Chronic conditions not treated during this visit that affected my overall medical decision making: Obesity. OARRS: Reviewed. Scribe Statement: Scribed for and in the presence of SCARLET AGUSTIN by Cherelle Oleary RN. Provider Statement: I, SCARLET AGUSTIN, personally performed the services described in the documentation, as scribed by Cherelle Oleary RN in my presence, and it is both accurate and complete. Cherelle Oleary RN 02/13/24 1329 SCARLET Agustin 02/13/24 1603 documented in this encounter [facility] 12-05-2023 History of Presen t illness Narrative [facility] [address] [place] [address] Patient: Sukhdeep Simental Sex: male : 1965 Age: 58 y.o. PCP: DERICK ISABEL MD 12/05/2023 Sukhdeep Simental is here for a(n) follow up for his [facility] work injury. He reports he remains about the same as last visit. Chief Complaint Patient presents with Back Pain HPI: 12/07/2022 L2/3 fusion and revised L3/4, S1 at [facility] per patient. Bilateral SI joint injection on 04/17/2021 with 10% relief, pain is worse. 07/07/21 Bilateral L3/4 Medial branch block with no relief. right L 3, 4 nerve root injection on 09/01/2021 with no relef. Back Pain This is a chronic problem. The current episode started more than 1 year ago (surgery 10/16/18 discectomy and 07/10/2019 fusion in [place]). The problem occurs constantly. The problem is unchanged. The pain is present in the lumbar spine, gluteal and thoracic spine. The quality of the pain is described as aching, stabbing, shooting and cramping (spike pain). The pain radiates to the right thigh (states pain to right thigh is 60% better than previous visit). The pain is at a severity of 8/10 (higher pain level in the mornings (9/10)). The pain is severe. The pain is The same all the time. The symptoms are aggravated by standing, sitting, lying down, bending and twisting (walking). Stiffness is present In the morning. Associated symptoms include leg pain (Right anterior/posterior thigh 60% better post surgery), numbness (Right hand d/t positioning from surgery from right elbow to middle, ring and pinky fingers) and weakness (BLE uses wheeled seated walker). Pertinent negatives include no bladder incontinence, bowel incontinence, chest pain, fever or tingling. Risk factors include sedentary lifestyle. Treatments tried: PT/HEP (current) with pool therapy, surgery x's2 (last 07/14), inj w/ dr larose (06/15), rest/heat/ice, meds: NSAIDs (celebrex,vol po/gel,motrin), norco, dilaudid, perc., oxy, lyrica, daypro, indometicin, bacof/flexiri/zanflex, biofreeze, campoz, hemp oil, The treatment provided mild relief. The effect of pain on patient's ADLS: Severe Impairment. Past Medical History: Diagnosis Date Arthritis Chronic kidney disease stones Chronic pain disorder Claustrophobia Diabetes mellitus type 2, controlled ([facility]) Fractures Hyperlipidemia Hypertension Joint pain Low back pain Major depression Obesity Osteoarthritis Pulmonary embolism ([facility]) Seasonal allergies Sleep apnea does not use machine Sleep apnea Visual impairment glasses Past Surgical History: Procedure Laterality Date ANKLE SURGERY spurs removed INJECTION BLOCK EPIDURAL CAUDAL STEROID N/A 10/27/2021 Performed by Darren Lackey MD at [facility] INJECTION BLOCK NERVE MEDIAL BRANCH: bilat L 3/4 Bilateral 07/07/2021 Performed by Darren Lackey MD at [facility] INJECTION BLOCK SACROILIAC JOINT Bilateral 04/17/2021 Performed by Darren Lackey MD at [facility] SPINE TRANSFORAMINAL: right L 3,4 Nroot Right 09/01/2021 Performed by Darren Lackey MD at [facility] JOINT REPLACEMENT knees- right x2, left x1 KNEE SURGERY rt knee inf removed tka added rods LITHOTRIPSY LUMBAR DISCECTOMY L4-5 Left 10/16/2018 Performed by Suzanne Silverio DO at [facility] 04/2021 sleeve Allergies Allergen Reactions Loratadine Other reaction(s): rash hives Chlorhexidine Red discoloration for one hour x5 years ago Iodine Rash Topical iodine-no dye per pain clinic Povidone-Iodine Rash Other reaction(s): rash, redness Family History Problem Relation Age of Onset No Known Problems Mother Cancer Father jaw Social History Socioeconomic History Marital status: Spouse name: Not on file Number of children: Not on file Years of education: Not on file Highest education level: Not on file Occupational History Not on file Tobacco Use Smoking status: Never Smokeless tobacco: Never Substance and Sexual Activity Alcohol use: Not Currently Drug use: Never Sexual activity: Defer Other Topics Concern Not on file Social History Narrative Not on file Social Determinants of Health Financial Resource Strain: Low Risk (03/28/2022) Received from [facility] Overall Financial Resource Strain (CARDIA) Difficulty of Paying Living Expenses: Not hard at all Food Insecurity: No Food Insecurity (12/05/2023) Hunger Screening Food Insecurity - Worry: Never True Food Insecurity - Inability: Never True Transportation Needs: Unknown (03/28/2022) Received from [facility] PRAPARE - Transportation Lack of Transportation (Medical): No Lack of Transportation (Non-Medical): Not on file Physical Activity: Inactive (12/01/2021) Received from [facility] Exercise Vital Sign Days of Exercise per Week: 0 days Minutes of Exercise per Session: 20 min Stress: No Stress Concern Present (12/01/2021) Received from [facility], [facility] [place] [facility] Occup[employer] [facility] - Occupational Stress Questionnaire Feeling of Stress : Not at all Social Connections: Moderately Isolated (12/01/2021) Received from [facility], [facility] Social Connection and Isolation Panel [NHANES] Frequency of Communication with Friends and Family: More than three times a week Frequency of Social Gatherings with Friends and Family: Once a week Attends Islam Services: Never Active Member of Clubs or Organizations: No Attends Club or Organization Meetings: Never Marital Status: Interpersonal Safety: Unknown (04/18/2023) Received from [facility] Safety & Environment Fear of Current or Ex-Partner: Not on file Emotionally Abused: Not on file Physically Abused: Not on file Sexually Abused: Not on file Physically or Sexually Abused: Not on file Housing Instability: Unknown (03/28/2022) Received from [facility], [facility] Housing Stability Vital Sign Unable to Pay for Housing in the Last Year: Not on file Number of Places Lived in the Last Year: Not on file In the last 12 months, was there a time when you did not have a steady place to sleep or slept in a residential (including now)?: No Review of Systems Constitutional: Negative for fever. Respiratory: Negative for cough and shortness of breath. Cardiovascular: Negative for chest pain. Gastrointestinal: Negative for bowel incontinence, constipation and diarrhea. Genitourinary: Negative for bladder incontinence and difficulty urinating. Musculoskeletal: Positive for back pain. Skin: Negative. Neurological: Positive for weakness (BLE uses wheeled seated walker) and numbness (Right hand d/t positioning from surgery from right elbow to middle, ring and pinky fingers). Negative for tingling. Psychiatric/Behavioral: Negative. Vital Signs: BP 131/90 Pulse 91 Resp 16 Ht 175.3 cm (5' 9 ) Wt 120.7 kg (266 lb) SpO2 95% BMI 39.28 kg/m Physical Exam: GENERAL - Healthy patient that appears stated age. HEENT - Normocephalic / Atraumatic, Extraoccular movements intact, trachea midline, thyroid within normal limits. CV - pulse regular, Warm extremities with appropriate color of nailbeds. RESP - No obvious wheezing, No Shortness of Breath, No overexertion response to exam maneuvers. COORDINATION - remains intact. PSYCH - Alert and Oriented x4, Attentive and appropriate, constitutionally normal, displays normal mood and affect per situation, answered questions appropriately during examination, demonstrated appropriate attention during discussion, demonstrated appropriate cognitive reasoning and understanding of the medical condition by asking appropriate questions regarding the diagnosis and risks/benefits/alternatives of treatment modalities. No obvious deficits in memory, reasoning, or intellect. Lumbar: SKIN - No rashes or bruising in the area of the patient s pain. LYMPH NODES - demonstrate no obvious enlargement. EXTREMITIES - Lower extremities are warm, with minimal edema and palpable pulses. Tenderness to palpation noted in the lumbar spine and paraspinal musculature. Pain is elicited with flexion, extension, and lateral rotation of the lumbar spine. Range of motion is diminished with these motions due to pain. Facet palpation is noted to be somewhat tender and facet loading maneuvers are mildly positive, but not concordant with the patient s normal pain complaints. STRENGTH - noted to be 5 out of 5 all muscle groups bilateral lower extremities including muscles involving hip flexion and abduction, knee flexion and extension, as well as foot dorsiflexion and plantarflexion. No notable atrophy, fasciculations or spasm. SENSORY - No notable sensory deficits in the bilateral lower extremities to touch or pinprick in all dermatomal distributions. Straight Leg Raise is negative. Gait is antalgic and assisted with ambulatory aid(s): Walker. Assessment/Treatment Plan: Sukhdeep was seen today for back pain. Diagnoses and all orders for this visit: Spinal stenosis, lumbar region, with neurogenic claudication Monitor Follow up PRN The medications prescribed have been reviewed for medication interactions/contraindications and/or for upcoming procedures: continue current medication regimen without any changes. It is felt that the patient s current pain is related to the described work related injury as well as the allowed condition mentioned. DISCUSSION: Treatment options discussed with patient and all questions answered to patient's satisfaction. Discussed the rules and regulations surrounding prescription of opioids and compliance at length. Failure to follow the rules and regulation will result in tapering and discontinuation of medications if applicable. Prescribed medication that requires intensive monitoring for toxicity We do not currently prescribe any controlled substance from this practice. At this time it does appear that the patient s pain is under adequate control with conservative care. It is felt that we should continue this approach and continue to monitor these symptoms and address them again in the future if they become more problematic. This approach was discussed with the patient and they are in agreement. The spine model was demonstrated and MRI was reviewed and used to explain the condition. Chronic conditions not treated during this visit that affected my overall medical decision making: Obesity OARRS: Reviewed. Scribe Statement: Scribed for and in the presence of SCARLET AGUSTIN by Sonal Rodriguez CNA. Provider Statement: I, SCARLET AGUSTIN, personally performed the services described in the documentation, as scribed by Sonal Rodriguez CNA in my presence, and it is both accurate and complete. Sonal Rodriguez CNA 12/05/23 1058 SCARLET Agustin 12/12/23 0942 documented in this encounter [facility] 10-04-2023 Telephone encounter Note Laura report XR Lumbar Spine 2-3v scanned to Epic [facility] 10-04-2023 Miscellaneous Notes Laura report XR Lumbar Spine 2-3v scanned to Epic documented in this encounter [facility] 07-30-2023 Telephone encounter Note Called Sukhdeep, no answer, left VM [facility] Work Phone: 07-30-2023 Miscellaneous Notes Called Sukhdeep, no answer, left VM Have sent XR Lumbar order to Laura fax # [phone] as requested from patient. Pt phoned regarding upcoming visit 10/06 [facility] comp appt. Pt unable to manage virtual visit asking for telephone visit. Pt asking how far in advance to do X-Ray. Pt will have X-Ray done locally at [place]. Please call and advise Pt phone # [phone] documented in this encounter [facility] 07-30-2023 Telephone encounter Note Have sent XR Lumbar order to [place] fax # [phone] as requested from patient. [facility] 07-30-2023 Telephone encounter Note Pt phoned regarding upcoming visit 10/06 [facility] comp appt. Pt unable to manage virtual visit asking for telephone visit. Pt asking how far in advance to do X-Ray. Pt will have X-Ray done locally at [place]. Please call and advise Pt phone # [phone] [facility] 07-26-2023 Telephone encounter Note Office note faxed. Faxed verification received. [facility] 07-26-2023 Miscellaneous Notes Office note faxed. Faxed verification received. Printed for review. Received request from [employer] needing more info, in epic for review. documented in this encounter [facility] 07-23-2023 Telephone encounter Note Printed for review. [facility] 07-23-2023 Telephone encounter Note Received request from [employer] needing more info, in epic for review. [facility] 05-08-2023 History of Presen t illness Narrative SPINE SURGERY FOLLOW UP This is a virtual visit using Audio Only Visit. It required patient-provider interaction for the medical decision making as documented below. I have communicated my name and active licensure. The patient's identity and physical location were verified at the time of this visit. Either the patient or their legal education courses sales representative has been informed of the risks [...] visit. Either the patient or their legal education courses sales representative has been informed of the risks [...] 4:00 PM PAGER: documented in this encounter [facility] 05-08-2023 Note HNO ID: [id number] Author: EDD MATHEW MD Service: ? Author [...] visit. Either the patient or their legal education courses sales representative has been informed of the risks [...] visit. Either the patient or their legal education courses sales representative has been informed of the risks [...] May 08, 2023 TIME: 4:00 PM PAGER: [facility] 05-08-2023 Miscellaneous Notes A letter was received from the law office of Barbara Loredo. 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 The information was reviewed by Nadiya Flynn PA-C and he would not like to amend the BWC claim to allow the above mentioned condition. Call placed to the office of Barbara Loredo to inform him of provider's decision. No answer at the time call was made. Message left. documented in this encounter [facility] 05-08-2023 Telephone encounter Note A letter was received from the law office of Barbara Loredo. 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 The information was reviewed by Nadiya Flynn PA-C and he would not like to amend the BWC claim to allow the above mentioned condition. Call placed to the office of Barbara Loredo to inform him of provider's decision. No answer at the time call was made. Message left. [facility] 05-07-2023 Miscellaneous Notes Call received from Hannah, patient's protective services case worker. She called as patient's MEDCO-14 is expiring soon. Hannah is informed that patient called about this and an updated MEDCO-14 was completed and faxed on 05/03/2023. Hannah states she is his protective services case worker and would like information sent to her at - obcz. She asked what the form states. She [...] will be 05/15/2023-11/14/2023. documented in this encounter [facility] 05-07-2023 Telephone encounter Note Call received from Hannah, patient's protective services case worker. She called as patient's MEDCO-14 is expiring soon. Hannah is informed that patient called about this and an updated MEDCO-14 was completed and faxed on 05/03/2023. Hannah states she is his protective services case worker and would like information sent to her [...] new dates for restrictions will be 05/15/2023-11/14/2023. [facility] 04-18-2023 Miscellaneous Notes Signed form faxed to number requested. Faxed verification received. Printed for review and signature. Received PT Certification from [facility]. Scanned to chart for provider signature. documented in this encounter [facility] 04-16-2023 Miscellaneous Notes Received imaging disc by mail from [facility]. Disc contains CT Lumbar spine done on 04/03/23. Will place in nurse folder in [address]. documented in this encounter [facility] 04-09-2023 Miscellaneous Notes Called & spoke with Sukhdeep Asked him to obtain imaging disc & send to our office. Will require images to be uploaded to assess for bony fusion at previous surgical site and adjacent segment disease. Received CT Lumbar Spine Report from [facility], in epic to review. documented in this encounter [facility] 03-25-2023 Note HNO ID: [id number] Author: EDD MATHEW MD Service: ? Author [...] March 25, 2023 TIME: 2:20 PM PAGER: [facility] 02-07-2023 Note HNO ID: [id number] Author: Christiano Griffiths RT(R) Service: ? Author [...] RT Norma(R) February 07, 2023 3:41 PM [facility] 02-07-2023 Miscellaneous Notes C9 for physical therapy faxed to [employer]. Faxed verification received. documented in this encounter [facility] 02-07-2023 Note HNO ID: [id number] Author: Riddhi Goss APRN.ASSESSMENT MANAGER Service: ? Author Type: Nurse Practitioner Type: [...] bowel or bladder incontinence. PAIN EVALUATION 02/07/2023 3297 Pain Level: 4 Pain Location: Back-Lower Description: [...] which included preparing to see the patient, qome-kk-kqdz patient care, completing clinical documentation, obtaining and/or reviewing separately obtained history, performing a medically appropriate examination, counseling and educating the patient/family/caregiver, and ordering medications, tests, or procedures. SIGNATURE: Riddhi Goss APRN.OLGA PATIENT NAME: Sukhdeep Simental DATE: February 07, 2023 TIME: 2:39 PM PAGER: [facility] 02-07-2023 History of Presen t illness [...] which included preparing to see the patient, gjmx-bg-jtvk patient care, completing clinical documentation, obtaining and/or reviewing separately obtained history, performing a medically appropriate examination, counseling and educating the patient/family/caregiver, and ordering medications, tests, or procedures. SIGNATURE: Riddhi Goss APRN.CNP PATIENT NAME: Sukhdeep Simental DATE: February 07, 2023 TIME: 2:39 PM PAGER: documented in this encounter [facility] 02-04-2023 Hospital Discharg e instructions Patient Education [...] include: ?8 oz (237 mL) of milk, mitlmvf-iyhvwlrbtgsi-vphfu milk, and calcium-fortifiedfruit juice. Calcium-fortified means that [...] ?Spinach (cooked), rhubarb, beets, sweet potatoes, and Nepalese chard. ?Peanuts. ?Potato chips, lao fries, and baked potatoes with skin on. ?Nuts and nut products. ?Chocolate. If you regularly take a diuretic medicine, make sure to eat at least 1 or 2 servings of fruits or vegetables that are high in potassium each day. These include: ?Avocado. ?Banana. ?[place], prune, carrot, or tomato juice. ?Baked potato. [...] magnesium, fish oil, or vitamin B6. Take hlem-hro-ayvbgll and prescription medicines only as told by [...] Casseroles. Pizza. Lasagna. Frozen meals. Potato chips. Tajik fries. The items listed above may not [...] provider. Document Revised: 05/24/2022 Document Reviewed: 05/24/2022 [employer] Patient Education 2022 [employer]. Follow Up Care 07/27/2022 14:20:34 With:LIDIA JACOBS, Cecelia Jj, URL Address: [facility] [address] , [place] [address]- When:Within 1 Year(s) Comments:w/CT AP w/o José [facility] 01-23-2023 Miscellaneous Notes Received fax from [employer]. Scanned into [employer]. Also received a RTW from [employer]. Scanned into Brammo as well. documented in this encounter [facility] 12-21-2022 Miscellaneous Notes Patient called with complaints of [facility] not allowing him to order picker the pain medication that was sent [...] with an update. documented in this encounter [facility] 12-20-2022 Note HNO ID: [id number] Author: Helen Morgan PA-C Service: ? Author Type: Physician Convex Grinder Type: Progress Notes Filed: 12/20/2022 3:17 PM [...] which included preparing to see the patient, qswm-rh-lipj patient care, completing clinical documentation, obtaining and/or reviewing separately obtained history, performing a medically appropriate examination, counseling and educating the patient/family/caregiver, and ordering medications, tests, or procedures. SIGNATURE: Helen Morgan PA-C PATIENT NAME: Sukhdeep Simental DATE: December 20, 2022 TIME: 2:58 PM PAGER: [facility] 12-20-2022 History of Presen t illness [...] which included preparing to see the patient, kdph-yz-kxsx patient care, completing clinical documentation, obtaining and/or reviewing separately obtained history, performing a medically appropriate examination, counseling and educating the patient/family/caregiver, and ordering medications, tests, or procedures. SIGNATURE: Helen Morgan PA-C PATIENT NAME: Sukhdeep Simental DATE: December 20, 2022 TIME: 2:58 PM PAGER: documented in this encounter [facility] 12-17-2022 Miscellaneous Notes Forms completed and signed by provider. Faxed to number roger and and Sukhdeep notified via voice mail, as requested. Scanned into [employer]. Form completed. Awaiting signature. Printed for review. Received FMLA form by fax from patient's . Scanned to patient's chart for review and completion. documented in this encounter [facility] 12-13-2022 Miscellaneous Notes Spoke with patient at [...] a carly. Myrna Schrader PA-C Patient at [phone] is requesting a call back. He had back surgery on 12-07. He states for the past 2 days his right ring and little finger has been numb. documented in this encounter [facility] 12-12-2022 Miscellaneous Notes Spoke with pharmacy and was informed that medication is approved. No prior authorization needed. Patient called stating pharmacy needs a prior authorization for oxycodone 15 mg. I called the pharmacy on 12/12/2022 at 9:40 AM. Insurance will not pay for the frequency of medication written. They will cover q12h. Prescription changed to oxycodone 15 mg 12h. [id number] [place] [address] - [address] - [phone] Pharmacist at [facility] wanted to inform the office that this patient already takes Percocet 10-325 every 6 hours, picked it up 13 days ago. They tried running the Percocet but his insurance will not cover both. Please call them back with new instructions. documented in this encounter [facility] 12-11-2022 Note HNO ID: [id number] Author: Lulu Oviedo MD Service: General Internal [...] Recent Labs 12/11/22 0450 12/10/22 0440 12/09/22 0459 WBC 9.04 8.16 8.72 HB 11.7* 10.9* [...] 10 mg tab( (more content not included)... [facility] 12-10-2022 Note HNO ID: [id number] Author: Lulu Oviedo MD Service: General Internal [...] (99 ?F) Oral 79 18 91 % 12/09/222027 135/66 36.9 ?C (98.4 ?F) Oral 77 [...] 10% iv bolu (more content not included)... [facility] 12-09-2022 Note HNO ID: [id number] Author: Alyssa Tim APRN.OLGA Service: Neurosurgery Author Type: Nurse Practitioner Type: [...] is currently not well controlled despite Dilaudid TESTER REGULATOR and Toradol. He denies new weakness, numbness, [...] mg ORAL q 8 H Alyssa Tim APRN.ASSESSMENT MANAGER 1,000 mg at 1015/23 0559 aluminum-magnesium hydroxide-simethicone 200-200-20 mg/5 mL 30 mL 30 mL ORAL q 6 H PRN Archual, Alyssa, PURCHASE ANALYST.ASSESSMENT MANAGER bisacodyl EC 10 mg tab(s) (DULCOLAX) 10 mg ORAL DAILY PRN Archual, Alyssa, PURCHASE ANALYST.ASSESSMENT MANAGER dextrose 40 % 15 g 15 g ORAL PRN Archual, Alyssa, PURCHASE ANALYST.ASSESSMENT MANAGER Or glucagon 1 mg injection 1 mg INTRAMUSCULAR PRN Archual, Alyssa, PURCHASE ANALYST.ASSESSMENT MANAGER Or dextrose 10% iv bolus 12.5 g INTRAVENOUS PRN Archual, Alyssa, PURCHASE ANALYST.ASSESSMENT MANAGER docusate sodium 100 mg cap(s) (COLACE) 100 mg ORAL BID Edd Mathew MD 100 mg at 12/09/22 0821 doxazosin 4 mg tab(s) (CARDURA) 4 mg ORAL DAILY Edd Mathew MD 4 mg at 12/09/22 0821 fentaNYL TESTER REGULATOR 20 mcg/mL in NaCl 0.9% 100 mL (SUBLIMAZE) INTRAVENOUS CONTINUOUS Archual, Alyssa, PURCHASE ANALYST.ASSESSMENT MANAGER ferrous sulfate 325 mg tab(s) 325 mg ORAL DAILY Archual, Alyssa, PURCHASE ANALYST.ASSESSMENT MANAGER 325 mg at 12/09/22 0821 heparin 5,000 Units injection 5,000 Units SUBCUTANEOUS q 12 H Archual, Alyssa, PURCHASE ANALYST.ASSESSMENT MANAGER 5,000 Units at 12/09/22 0821 hydrOXYzine HCl 25 mg tab(s) (ATARAX) 25 mg ORAL q 6 H PRN Archual, Alyssa, PURCHASE ANALYST.ASSESSMENT MANAGER insulin lispro injection (rapid acting) (HumaLOG) SUBCUTANEOUS w MEALS AND HS Archual, Alyssa, PURCHASE ANALYST.ASSESSMENT MANAGER 1 Units at 12/07/22 1803 lactated ringers iv infusion 75 mL/hr INTRAVENOUS CONTINUOUS Edd Mathew MD 75 mL/hr at 12/09/22 1018 75 mL/hr at 12/09/22 1018 methocarbamol 750 mg tab(s) (ROBAXIN) 750 mg ORAL QID Archual, Alyssa, PURCHASE ANALYST.ASSESSMENT MANAGER NaCl 0.9% iv flush bag 20 mL INTRAVENOUS PRN Edd Mathew MD naloxone 0.1 mg injection (NARCAN) 0.1 mg INTRAVENOUS q 2 MIN PRN Archual, Alyssa, PURCHASE ANALYST.ASSESSMENT MANAGER omeprazole 20 mg cap(s) (PriLOSEC) 20 mg ORAL 2 times per day Michael York, Sarah 20 mg at 12/08/222019 ondansetron 4 mg tab(s) (ZOFRAN) 4 mg ORAL q 6 H PRN Edd Mathew MD Or ondansetron (PF) 4 mg injection (ZOFRAN) 4 mg INTRAVENOUS q 6 H PRN Edd Mathew MD 4 mg at 12/09/22 0941 polyethylene glycol 3350 17 g packet 17 g ORAL DAILY Archual, Alyssa, PURCHASE ANALYST.ASSESSMENT MANAGER 17 g at 12/09/22 08 simvastatin 10 mg tab(s) (ZOCOR) 10 mg ORAL AT BEDTIME Edd Mathew MD 10 mg at 12/08/222019 tamsulosin 0.4 mg cap(s) (FLOMAX) 0.4 mg ORAL DAILY Edd Mathew MD 0.4 mg at 12/09/22820 traZODone 150 mg tab(s) (DESYREL) 150 mg ORAL AT BEDTIME Archual, Alyssa, PURCHASE ANALYST.ASSESSMENT MANAGER 150 mg at 12/08/222019 valsartan 80 mg tab(s) (DIOVAN) 80 mg ORAL DAILY Archual, Alyssa, PURCHASE ANALYST.ASSESSMENT MANAGER 80 mg at 12/09/22 08 ASSESSMENT AND [...] pain control, Pain management consulted, started Fentanyl TESTER REGULATOR today due to continued uncontrolled pain, Robaxin and Tylenol scheduled, no further Toradol due to CKD 3. -Check postop lumbar XR today -Medicine consult for post-operative medical management -Discharge planning, anticipate discharge home in 1-2 more days. Plan of care discussed with Dr. Mathew via phone. Medication and Non-Pharmacologic VTE Prophylaxis/Anticoagulants 10/25/21 1215 vte pharmacologic prophylaxis contraindicated (fl,oh) (more content not included)... [facility] 12-08-2022 Note HNO ID: [id number] Author: Alyssa Tim APRN.ASSESSMENT MANAGER Service: Neurosurgery Author Type: Nurse Practitioner Type: [...] on POD #2 -Post-operative pain control, Dilaudid TESTER REGULATOR discontinued. Continue Tylenol, Toradol IV, and Robaxin PRN. Start oxycodone every 3 hours PRN and Dilaudid IV PRN. -Check postop XR tomorrow. -Medicine consult for post-operative medical management -Discharge planning, anticipate discharge home in 1-2 more days. Plan of care discussed with Dr Hopper via phone. Medication and Non-Pharmacologic VTE Prophylaxis/Anticoagulants 10/25/21 1215 vte pharmacologic prophylaxis contraindicated (ny,ut) 10/25/21 1215 pneumatic compression stockings (ny,oh) 10/25/21 1215 activity - mobilize patient (ny,ut) VTE Prophylaxis: VTE prophylaxis appropriate SIGNATURE: Alyssa Tim APRN.ASSESSMENT MANAGER DATE: December 08, 2022 TIME: 1:50 PM [facility] 12-08-2022 Note HNO ID: [id number] Author: Note, Interface Service: ? Author Type: ? Type: Progress Notes Filed: 12/08/2022 3:59 AM Note Text: Epic Scheduled Downtime: 12/08/2022 1:00:00 AM to 12/08/2022 1:28:00 AM [facility] 12-07-2022 Note HNO ID: [id number] Author: Aaron Noriega AA Service: Anesthesiology Author Type: Silviculture Forester Type: Anesthesia Procedure Notes Filed: 12/07/2022 8:04 [...] December 07, 2022 TIME: 8:03 AM CSN: [id number] [facility] 12-06-2022 Evaluation note Encounter Date Diagnosis Assessment [...] has adequate iron stores. 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 12/07/2022 documented as of this encounter (statuses as of 12/18/2022) [address]27-2023 History of Past illness Narrative* Problem Noted Date Diagnosed Date Resolved Date Secondary hyperparathyroidism 11/21/2022 11/21/2022 11/21/2022 Corneal edema, unspecified 12/10/2013 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 12/07/2022 documented as of this encounter (statuses as of 12/21/2022) [address]27-2023 History of Past illness Narrative* Problem Noted Date Diagnosed Date Resolved Date Secondary hyperparathyroidism 11/21/2022 11/21/2022 11/21/2022 Corneal edema, unspecified 12/10/2013 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 12/07/2022 documented as of this encounter (statuses as of 12/21/2022) [address]27-2023 History of Past illness Narrative* Problem Noted Date Diagnosed Date Resolved Date Secondary hyperparathyroidism 11/21/2022 11/21/2022 11/21/2022 Corneal edema, unspecified 12/10/2013 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 12/07/2022 documented as of this encounter (statuses as of 01/24/2023) [address]27-2023 History of Past illness Narrative* Problem Noted Date Diagnosed Date Resolved Date Secondary hyperparathyroidism 11/21/2022 11/21/2022 11/21/2022 Corneal edema, unspecified 12/10/2013 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 12/07/2022 documented as of this encounter (statuses as of 02/08/2023) [facility]09-27-2023 History of Past illness Narrative* Problem Noted Date Diagnosed Date Resolved Date Secondary hyperparathyroidism 11/21/2022 11/21/2022 11/21/2022 Corneal edema, unspecified 12/10/2013 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 12/07/2022 documented as of this encounter (statuses as of 02/09/2023) [address]27-2023 History of Past illness Narrative* Problem Noted Date Diagnosed Date Resolved Date Secondary hyperparathyroidism 11/21/2022 11/21/2022 11/21/2022 Corneal edema, unspecified 12/10/2013 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 12/07/2022 documented as of this encounter (statuses as of 04/09/2023) [place] [id number] History of Past illness Narrative* Problem Noted Date Diagnosed Date Resolved Date Secondary hyperparathyroidism 11/21/2022 11/21/2022 11/21/2022 Corneal edema, unspecified 12/10/2013 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 12/07/2022 documented as of this encounter (statuses as of 04/18/2023) [address]27-2023 History of Past illness Narrative* Problem Noted Date Diagnosed Date Resolved Date Secondary hyperparathyroidism 11/21/2022 11/21/2022 11/21/2022 Corneal edema, unspecified 12/10/2013 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 12/07/2022 documented as of this encounter (statuses as of 05/13/2023) [address]27-2023 History of Past illness Narrative* Problem Noted Date Diagnosed Date Resolved Date Secondary hyperparathyroidism 11/21/2022 11/21/2022 11/21/2022 Corneal edema, unspecified 12/10/2013 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 12/07/2022 documented as of this encounter (statuses as of 06/06/2023) [facility]2023 Nurse Note* Juan Pablo Nova RN - 11/05/2022 3:11 PM EDT Neuro SPINE CARE COORDINATION PRE-OP VISIT Met with patient and spouse for pre op education. Given both written and verbal instructions re : Skin prep, wound care, pain management and post op restrictions. Provided to patient: [facility] Surgery Guide, skin prep supplies, Spine Surgery Pre/post op education packet. Yes Reviewed with patient to report to the registration desk for surgery? Yes. Reviewed with the patient that a surgery public utilities sales representative will call the working day [...] lab work : To be completed at [facility]. Questions answered. Patient verbalizes understanding via teach back. Additional comments : Informed to call with any questions or concerns. Juan Pablo Nova RN documented in this encounter[facility] NoteHNO ID: [id number] Author: Edd Mathew MD Service: ? Author [...] not taking: Reported on (more content not included)...[id number] History of Present illness Narrative* Edd Mathew [...] on 11/05/2022) LEVOFLOXACIN ORAL Take by mouth. stefanie (Patient not taking: Reported on 11/05/2022) Besifloxacin [...] TIME: 2:20 PM PAGER: documented in this encounterSelect [facility]23 NoteHNO ID: [id number] Author: Sonya Wilhelm APRN.ASSESSMENT MANAGER Service: ? Author Type: Nurse Practitioner Type: Progress Notes Filed: 10/16/2022 4:03 PM Note Text: Per Triage: Sukhdeep Simental is a 57 year old male that requests evaluation of lumbar spine. Per review, they have symptoms of LBP Hip pain Leg pain (R) Numbness, Tingling Toes Trouble lifting leg (R) Prev surgery yes L4-S1 fusion in [facility] CMT: Injection Muscle relaxants, Zanaflex Studies [...] schedule with first available lumbar revision surgeon. [facility]08-22-2023 History of Present illness Narrative* Sonya Wilhelm APRN.ASSESSMENT MANAGER - 10/16/2022 3:51 PM EDT Per Triage: Sukhdeep Simental is a 57 year old male that requests evaluation of lumbar spine. Per review, they have symptoms of LBP Hip pain Leg pain (R) Numbness, Tingling Toes Trouble lifting leg (R) Prev surgery yes L4-S1 fusion in [facility] CMT: Injection Muscle relaxants, Zanaflex Studies [...] Health Provider or Pain Management Provider at [facility]? No If answer is YES please schedule [...] facility where the MRI/CT/myelogram was completed: [facility] Address: [address] [place] [address] MRI/CT/myelogram viewable in Epic: No If not, please provide [phone] to fax in imaging reports for review. [...] injections and/or physical therapy was completed Injection [facility] Address: [address] [place] [address] Have you tried any other kinds of [...] of where the surgery was completed: [facility] Address: [address], [place] [address] Additional Comments [phone] (Home Phone) documented in this encounterSelect [facility]23 NoteHNO ID: [id number] Author: Adonis Lopez Service: ? Author Type: ? Type: Progress Notes Filed: 10/16/2022 4:03 PM Note Text: Patient name: Sukhdeep Simental Are you being referred by a [place] for Spine Health Provider or Pain Management Provider at [facility]? No If answer is YES please schedule [...] facility where the MRI/CT/myelogram was completed: [facility] Address: [address] [place] [address] MRI/CT/myelogram viewable in Epic: No If not, please provide [phone] to fax in imaging reports for review. [...] injections and/or physical therapy was completed Injection [facility] Address: [address] [place] [address] Have you tried any other kinds of [...] of where the surgery was completed: [facility] Address: [address] [place] [address] [address], [place] [address] Additional Comments [phone] (Home Phone)[facility]06-21-2023 NoteChief Complaint: lbp and radicular pain [...] for this problem: L4-S1 fusion Dr. Hilton [place], [place] ROS Constitutional: Fatigue: No Weight loss: No Fever: No Chills: No Past Surgical History: Procedure Laterality Date ANKLE SURGERY Left JOINT REPLACEMENT Bilateral KIDNEY STONE SURGERY MULTIPLE LUMBAR FUSION STOMACH SURGERY N/A GASTRIC SLEEVE Past Medical History: Diagnosis Date Allergic rhinitis Anemia Anxiety BPH (benign prostatic hyperplasia) CKD (chronic kidney disease) 3 Diabetes ([facility]) GERD (gastroesophageal reflux disease) Hyperlipidemia Hyperparathyroidism ([facility]) Hypertension Kidney stones Lumbar pain OA (osteoarthritis) [...] Friends and Family: Once a week Attends Islam Services: Never Active Member of Clubs or Organizations: No Attends Club or Organization Meetings: Never Marital Status: Intimate Partner Violence: Not At Risk Fear of Current or Ex-Partner: No Emotionally Abused: No Physically Abused: No Sexually Abused: No Housing Stability: Low (more content not included)...[facility]06-16-2023 NotePatient stated that hes still waiting for a C9 to be put in for a surgery. We have the evaluation that he was originally supposed to be waiting on so hes not sure what the hold up is now.[facility]05-01-2023 Note This report has been cancelled.[facility]04-28-2023 NoteOrthopedic Surgery Subjective Chief complaint: Chief [...] hyperplasia) CKD (chronic kidney disease) 3 Diabetes ([facility]) GERD (gastroesophageal reflux disease) Hyperlipidemia Hyperparathyroidism (CMS/HCC) [...] radiculopathy and failed back (more content not included)...[facility]04-28-2023 Note Chief Complaint: lbp and radicular [...] for this problem: L4-S1 fusion [facility] Constitutional: Fatigue: No Weight loss: No Fever: [...] Friends and Family: Once a week Attends Islam Services: Never Active Member of Clubs or Organizations: No Attends Club or Organization Meetings: Never Marital Status: Intimate Partner Violence: Not At Risk Fear of Current or Ex-Partner: No Emotionally Abused: No Physically Abused: No Sexually Abused: No Housing Stability: Low Risk Unable t (more content not included)...[facility] 06-21-2022 Evaluation note* Encounter Date Diagnosis [...] will continue to monitor without any medications. Preggers Other 02-22-2023 Note Attestation signed by Jason [...] stimulator and failed other modalities. 12/20/21 Sukhdeep Simnetal is a 56 y.o. 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 year old male [facility] patient with history of L4-S1 laminectomy and [...] below, the signing (more content not included)... [facility]02-17-2023 NoteOrthopedic Surgery Subjective 03/28/2022 Revision, Total [...] has been working with physical therapy in [place]. Patient denies any fever, chills or rigors [...] hyperplasia) CKD (chronic kidney disease) 3 Diabetes ([facility]) GERD (gastroesophageal reflux disease) Hyperlipidemia Hyperparathyroidism ([facility]) Hypertension Kidney stones Lumbar pain OA (osteoarthritis) [...] from me. Dr. Payton Helm MD MRCSEd Geospatial Extractor Analysis orthopedic surgery-[facility]. [facility]02-02-20[facility] however after running his benefits they found that pt would have to pay $2274 before even being covered for 80%. Discussed this with pt who stated he will just do outpatient therapy instead. Obtained a script/order from Ortho and provided to the pt.[facility]02-02-2023 NotePt known from previous admissions. Still lives at home with and dgtr. PT reporting pt could benefit from home PT. Spoke with pt who wanted to try for [facility] but they are out of network. Sent multiple new referrals out but noted pt has recent history with [facility] 03-29-2022 NoteInfectious Diseases - Inpatient daily [...] advised to avoid any antacids and any [id number] Maalox or Pepto-Bismol if he does think [...] progress note was completed using a voice conservation scientist system. Every effort was made to ensure accuracy; however, inadvertent computerized conservation scientist errors may be present. Thank you for allowing me to see the patient Please call for any questions or concerns, Sammi Venegas MD [place] Infectious diseases P:[phone] Deaconess Hospital02-02-2023 Note Attestation signed by Deidra Camarillo OT at 03/29/2022 12:02 PM This keno writer / runner present and provided 1:1 supervision and direction of patient care. Jamie VERGARA/ANTONIO Mendoza Occupational Therapy Occupational Therapy Evaluation Patient Name: Sukhdeep Simental : 1965 Today's Date: 03/29/2022 Time in: 1012 Time out: 1042 Surgery type: Stage II R TKA Revision Surgery date: 03/28/2022 RN ok for pt to be seen at [...] right knee Loose right total knee arthroplasty ([facility]/HCC) Quadriceps weakness Lumbosacral radiculopathy Encounter for pre-operative laboratory testing HTN (hypertension) Diabetes mellitus, type 2 ([facility]) Gastroesophageal reflux disease Morbid obesity ([facility]) ELIDA (obstructive sleep apnea) Anxiety Chronic kidney disease Infection of prosthetic knee joint ([facility]) Acute renal failure ([facility]) Chronic knee pain 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 Chronic low back pain Corneal edema, unspecified Degeneration of lumbosacral intervertebral disc Dyspnea and respiratory abnormality Edema Herpes simplex iridocyclitis History of kidney stones History of pulmonary embolism Other specified inflammatory spondylopathies, 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[facility]) Pulmonary embolism with acute cor pulmonale ([facility]) Recurrent pulmonary emboli ([facility]) S/P laparoscopic sleeve gastrectomy Spinal stenosis, lumbar region, with neurogenic claudication Tachycardia 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 Past Medical History: Diagnosis Date Allergic rhinitis Anemia Anxiety BPH (benign prostatic hyperplasia) CKD (chronic kidney disease) 3 Diabetes ([facility]) GERD (gastroesophageal reflux disease) Hyperlipidemia Hyperparathyroidism ([facility]) Hypertension Kidney stones Lumbar pain OA (osteoarthritis) [...] Level of Function Prior Function Level of [place]: Independent with ADLs and functional transfers, Needs [...] From 1: Bed, Sit (more content not included)...[facility]02-02-2023 NotePhysical Therapy Physical Therapy Evaluation Patient [...] hyperplasia) CKD (chronic kidney disease) 3 Diabetes ([facility]) GERD (gastroesophageal reflux disease) Hyperlipidemia Hyperparathyroidism ([facility]) Hypertension Kidney stones Lumbar pain OA (osteoarthritis) [...] Level of Function Prior Function Level of [place]: Independent with ADLs and functional transfers (Amb [...] 1: Close supervision Qu (more content not included)...[facility]02-02-2023 Note Attestation signed by Payton Helm [...] hyperplasia) CKD (chronic kidney disease) 3 Diabetes ([facility]) GERD (gastroesophageal reflux disease) Hyperlipidemia Hyperparathyroidism ([facility]) Hypertension Kidney stones Lumbar pain OA (osteoarthritis) [...] post REVISION, TOTAL ARTHROPLASTY, KNEE, ALL COMPONENTS [id number] - [place] REVJ TOT KNEE ARTHRP FEM&ENTIRE TIBIAL COMPONE DOS: 03/28/22 Weight-bearing status:WBAT limit flexion to 90 DVT prophylaxis: Eliquis Antibiotics: saúl op ancef Infectious disease consulted for PJI abx recs Pain control, ice, elevate PT/OT Discharge home today or tomorrow Donn Horner MD Orthopedic Surgery Resident Orthopedic Surgery Pager: [phone] 03/29/22 7:11 [facility]02-01-2023 NotePatient: Sukhdeep Simental Procedure Summary Date: 03/28/22 Room / Location: [facility] OPERATING ROOM 04 / [facility] Operating Room Anesthesia Start: 1140 Anesthesia [...] were no known notable events for this encounter.[facility]02-01-2023 NoteAirway Date/Time: 03/28/2022 11:48 AM Urgency: elective Airway not difficult General Information and Staff Patient location during procedure: OR Anesthesiologist: Dereck Rosales MD Resident/CRO/CAA: AMY Rust Performed: resident/CRO/CAA Indications and Patient Condition Indications for airway [...] approach: 1 Number of other approaches attempted: [facility] 03-28-2022 NotePeripheral Block Patient location during procedure: pre-op Start time: 03/28/2022 10:43 AM End time: 03/28/2022 10:58 AM Reason for block: at surgeon's request and post-op pain management Staffing Performed: resident/CRO/CAA Anesthesiologist: Dereck Rosales MD Resident/CRO: Dami Henry MD Preanesthetic Checklist Completed: patient [...] no paresthesia on injection Heart rate change: [facility]02-01-2023 NotePatient: Sukhdeep Simental Procedure Information Anesthesia Start Date/Time: 12/27/2138 Procedure: INFECTED PROSTHETIC, STAGE 1 REVISION AND DEBRIDEMENT, REMOVAL OF HARDWARE ALL COMPONENTS, WASHOUT AND SPACER PLACEMENT (Right: Knee) - biometInpatient Only, reps notified. Location: [facility] OPERATING ROOM 02 / [facility] Operating Room Surgeons: Payton Helm MD [...] patient. Plan discussed with CAA. Additional Equipment RequestsProtestant Deaconess Hospital01-27-2023 Note Patient called into the office and stated that his procedure is schedule on sat03/28/2022 for a knee replacement and he needs Fmla paperwork completed and a letter for medical necessity for DOS 07/21/2021 claim# [id number], the letter can be faxed to [phone] subject line Attn Garrett roy , and questions in regards to procedure. He states that he know your in clinic and he tried calling several times today.[facility]01-23-2023 Hospital Discharge instructions Patient Education 03/19/2022 [...] include: ?Spinach. ?Rhubarb. ?Beets. ?Potato chips and lao fries. ?Nuts. If you regularly take a diuretic medicine, make sure to eat at least 1 2 fruits or vegetables high in potassium each day. These include: ?Avocado. ?Banana. ?[place], prune, carrot, or tomato juice. ?Baked potato. [...] Casseroles. Pizza. Lasagna. Frozen meals. Potato chips. Tajik fries. Summary You can reduce your risk [...] 06/08/2011 Document Revised: 06/03/2019 Document Reviewed: 01/22/2017 ComputeNext Patient Education 2020 RatingBug. Follow Up Care 03/15/2022 09:49:40 With:LIDIA JACOBS, Cecelia Jj, URL Address: [facility] [address], [place] [address]- When: Unknown [facility] 01-16-2023 NoteIndication: Renal mass. Comparison: 07/14/2021 exam. [...] Electronically authenticated by: CITLALI GIRON Date: 2022-03-12 18:03[facility]12-30-2022 NoteOrthopedic Surgery Visit Description: Follow-up Subjective Chief [...] hyperplasia) CKD (chronic kidney disease) 3 Diabetes ([facility]) GERD (gastroesophageal reflux disease) Hyperlipidemia Hyperparathyroidism ([facility]) Hypertension Lumbar pain OA (osteoarthritis) Obesity Obstetric [...] to Clinic for routine (more content not included)...[facility]11-23-2022 NoteDate of Telehealth Visit: 01/17/2022 HPI: Sukhdeep Simental is a 56 y.o. male patient HPI: This is a 48 years old male patient, medical history of CKD 3, morbid obesity, bilateral knee arthoplasty with multiple knee replacement and revisions, BPH, and anxiety admitted to [facility] on 12/27/2021 for a planned right knee [...] using 3rd constitution party telecommunication application (e.g., [employer]) is not HIPPA compliant and may carry some privacy risks. Yes The visit was conducted [id number] with the use of audio and video technology between patient and provider for a virtual [...] Infection of prosthetic knee joint, subsequent encounter [id number]-male patient with bilateral knee arthoplasty with multiple knee replacement and revisions admitted to [facility] on 12/27/2021 for prosthetic joint infection of [...] obtaining an aspiration o (more content not included)...[facility] 01-12-2022 NoteOrthopedic Surgery Subjective Follow-up and [...] hyperplasia) CKD (chronic kidney disease) 3 Diabetes ([facility]) GERD (gastroesophageal reflux disease) Hyperlipidemia Hyperparathyroidism ([facility]) Hypertension Lumbar pain OA (osteoarthritis) Obesity Obstetric [...] of right total knee replacement, initial encounter ([facility]) Disc degeneration, lumbar Infection of prosthetic knee [...] available at this point in time at [facility] and we will continue to plan his [...] femoral component. I have (more content not included)...[facility]11-08-2022 NotePt ready for discharge and has been setup to do his 2 outpatient infusions through [facility] in [place]. Sent final AVS and discharge order to [facility] via [employer]. [facility] [place] [facility] and provided pt with the address to pick it up.[facility]11-08-2022 NotePhysical Therapy Physical Therapy Treatment Patient [...] but is agreeable to education with this VICE CHAIR at this time. Precautions Precautions LE Weight [...] Clicks T-Score: 16 Assessment/Plan PT Assessment PT Assessment/VICE CHAIR Summary: Pt. reports good understanding of all [...] balance to allow f (more content not included)...[facility]11-08-2022 Note Subjective Patient continues to endorse [...] right knee Loose right total knee arthroplasty ([facility] [facility] 56 yo m with R knee stage [...] with eliquis. -DC likely today. Dave Reyes [id number] Nelsonville Health Center11-07-2022 NoteOhioans [facility] only [facility] and pt agreeable. Updated AVS.[facility]11-07-2022 NoteFinal ID recs are in for 2 outpatient doses of Dalbavancin. Advised [facility] of this and they ran the [...] if he wanted us to set up [facility] and he is agreeable and wanted [facility] which after a phone call is only outpatient therapy, not home. Pt then stated he would want [facility] and is agreeable to multiple referrals in case they cannot accept. [facility] is working on setting up pt's outpatient infusions. Pt also reported his cannot pick him up tonight anyway. [facility]11-07-2022 NoteAwaiting fax from [facility] to fill out form for outpatient Dalbavancin injections. Once this is filled out their scheduling department will call the patient.[facility]11-07-2022 Note Attestation signed by Gianni Richter [...] ORDERS: CONTACT NUMBERS For all questions call: [phone] IV ACCESS: N/A IV ACCESS FLUSHING ORDERS [...] information has been explained to the patient: [facility]11-07-2022 NotePharmacy Dosing Service - Vancomycin Daily [...] daily Thank you for the consult! Abdias Tovar, PharmD 01/01/2022UnOhioHealth Nelsonville Health Center11-07-2022 Note Attestation signed by Gianni Richter DO [...] Progress Note Our team prefers to use [employer] for communication during business hours (8 AM - 5 PM). We make every effort to keep the Treatment Team in Brammo updated. If I do not respond within 30 minutes, please page me with urgent issues. From 5 PM - 8 AM, please page or call through the banding machine operator for urgent issues. Patient name: [...] 8.4* 8.4* 8.7 Re (more content not included)...[facility]11-07-2022 NoteSent updates to [facility]. Awaiting pre-cert. Of note pt is refusing PICC placement.[facility]11-07-2022 Note Physical Therapy Physical Therapy Treatment [...] working with PT at this time. RN okays session including up to bedside [...] Contact guard Modalities Cryoth (more content not included)...[facility] 01-01-2022 NoteSubjective Patient endorses less pain [...] right knee Loose right total knee arthroplasty ([facility]) 56 yo m with R knee stage [...] snf placement and abs. Dave Brooke Ortho [id number] Nelsonville Health Center11-06-2022 NoteSubjective Patient endorses pain to right knee [...] right knee Loose right total knee arthroplasty (CMS/[facility]) 56 yo m with R knee stage 1 revision 12/27/21. -NWB RLE in Knee brace. -ID abs per ID. -Appreciate med management. -Pain meds. -DVT proph with eliquis. -DC pending snf placement. Dave Reyes [id number] Nelsonville Health Center11-05-2022 NoteOccupational Therapy Occupational Therapy Treatment Patient Name: [...] Dressing Yes LE Dressing Adaptive Equipment Sock aide;Spring Crater Pants Level of Assistance Minimum assistance Sock Level of Assistance Minimum assistance LE Dressing Where Assessed Other (Comment) (seated at recliner chair) LE Dressing Comments pt attempting to place weight through RLE when pulling shorts over hips despite education from keno writer / runner. pt was encouraged to sit to complete [...] OT Plan Skilled OT OT Discharge Recommendations halfway facility placement 12/30/21 1700 AM-PAC 6 Clicks Putting on and taking off regular lower body clothing? 3 Bathing(Including washing,rinsing,drying)? 3 Toileting, which includes using the toilet,bedpan,or urinal? 3 Putting on and taking off regular upper body clothing? 4 Taking care of personal grooming such as brushing teeth? 3 Eating meals? 4 Total Score OT [facility] 20 12/30/21 1713 Time Calculation Start Time 1433 Stop Time 1509 Time Calculation (min) 36 min OT Therapeutic Procedures Time Entry Self Care/Home Management (ADLs) Time Entry 20 Therapeutic Activity Time Entry 16 DACIA Araya/[facility]11-05-2022 NoteSent updates to [facility]. [facility] reported ID made new recommendations. Awaiting precert. Pt has DC orders.[facility]11-05-2022 Note Attestation signed by Gianni Richter [...] Progress Note Our team prefers to use [employer] for communication during business hours (8 AM - 5 PM). We make every effort to keep the Treatment Team in Brammo updated. If I do not respond within 30 minutes, please page me with urgent issues. From 5 PM - 8 AM, please page or call through the banding machine operator for urgent issues. Patient name: [...] dalbavancin x2 outpatient if needed. Scripts in SAFCell chart. If not approved can do oral [...] inhalation, Continuous pantoprazole, 4 (more content not included)...[facility]11-05-2022 NoteSubjective Patient endorses pain to right [...] med management. -Pain meds. -DVT proph with catequjohnna. Dave Reyes [id number] Nelsonville Health Center11-05-2022 NotePhysical Therapy Physical Therapy Treatment Patient Name: [...] of a flat bed (more content not included)...[facility]. Updated pt and updated AVS.[facility]11-04-2022 NoteThis report has been cancelled.[facility]11-04-2022 Note Attestation signed by Kb Cordova [...] ???F) Oral 91 18 96 % 12/28/21 195 148/70 36.9 ???C (98.5 ???F) Oral 74 [...] knee Loose right total knee arthroplasty (CMS/HCC) #Total knee arthroplasty debridement and hardware removal [...] flomax Melina Hidalgo MD PGY 2,internal medicine resident.[facility]11-04-2022 NoteInfectious Diseases - Progress Note Our team prefers to use [employer] for communication during business hours (8 AM - 5 PM). We make every effort to keep the Treatment Team in Brammo updated. If I do not respond within 30 minutes, please page me with urgent issues. From 5 PM - 8 AM, please page or call through the banding machine operator for urgent issues. Patient name: [...] Results from last 7 days Lab Units 12/28/216 WBC AUTO 10*3/uL 12.19* HEMOGLOBIN g/dL 10.5* HEMATOCRIT % 32.1* MCV fL 92.2 PLATELETS AUTO 10*3/uL 235 Results from last 7 days Lab Units 12/28/2141512/27/21 1845 POTASSIUM mmol/L 5.1 4.4 CHLORIDE mmol/L 107 104 CO2 mmol/L 25 25 BUN mg/dL 23 23 CREATININE mg/dL 1.34* 1.49* GLUCOSE mg/dL 208* 246* CALCIUM mg/dL 8.4* 8.7 Results from last 7 days Lab Units 12/28/21 041 SED RATE mm/hr 53* CRP mg/L 14.2* [...] progress note was completed using a voice conservation scientist system. Every effort was made to ensure accuracy; however, inadvertent computerized conservation scientist errors may be present. . Erica Pompa MD, [facility] Infectious Diseases Pager: [phone] Contact us via Brammo Chat or page through the [facility]11-04-2022 NotePharmacy Dosing Service - Vancomycin Follow [...] over 30 Minutes intravenous Every 24 hours 12/27/214 01/01/221958 Labs and Renal Function Total body weight: (!) 140 kg (308 lb 6.8 oz) Barnard body weight: 68.4 kg (150 lb 12.7 [...] questions Thank you, Ly (more content not included)...[facility]11-04-2022 NoteSubjective Patient endorses pain to right [...] right knee Loose right total knee arthroplasty ([facility]) 56 yo m with R knee stage 1 revision 12/27/21 who is post op day 2. -NWB RLE in Knee brace. -ID abs per ID. -Appreciate med management. -Pain meds. -DVT proph with eliquis. Dave Reyes [id number] Nelsonville Health Center11-04-2022 Note Attestation signed by Sonal Bowles OT at 12/29/2021 5:19 PM This note has been reviewed and is co-signed by the supervising therapist. Occupational Therapy Pt is unable to be seen for therapy at this time secondary to pt requesting that keno writer / runner return in about 15 mins to allow pain medication to kick in however, when keno writer / runner returned pt stated that the pain medication was not working and he did not want to get up . Will continue to check back as appropriate. Time attempted: 1515 and 1537UnOhioHealth Nelsonville Health Center11-03-2022 Note Physical Therapy Physical Therapy Evaluation Patient [...] Level of Function Prior Function Level of [place]: Independent with ADLs and functional transfers (household [...] Clicks T-Score: 16 As (more content not included)...[facility]11-03-2022 NotePt's first SNF choice [facility] is out of network with insurance. Discussed with pt and he provided 3 more choices of 1. [facility], 2. [facility], 3. [facility]. Sent referrals via Careport.[facility]11-03-2022 NoteInfectious Diseases - Progress Note Our team prefers to use [employer] for communication during business hours (8 AM - 5 PM). We make every effort to keep the Treatment Team in Epic updated. If I do not respond within 30 minutes, please page me with urgent issues. From 5 PM - 8 AM, please page or call through the banding machine operator for urgent issues. Patient name: [...] progress note was completed using a voice conservation scientist system. Every effort was made to ensure accuracy; however, inadvertent computerized conservation scientist errors may be present. Thank you for allowing us to participate in the care of this patient. Asim Alfonso MD Infectious Diease Fellow PGY 5 [facility] I performed a history and physical [...] this patient. . Erica Pompa MD, [facility] Infectious Diseases Pager: [phone] Contact us via Brammo Chat or page through the [facility]11-03-2022 Note Attestation signed by Kb Cordova [...] right knee Loose right total knee arthroplasty ([facility]) #Total knee arthroplasty debridement and hardware removal [...] ativan given that patient (more content not included)...[facility]11-03-2022 Note Attestation signed by Deidra Camarillo OT at 12/28/2021 3:57 PM This keno writer / runner present and provided 1:1 supervision and direction of patient care. Jamie CHONG, MOT Occupational Therapy Occupational Therapy Evaluation Patient Name: Sukhdeep Simental : 1965 Today's Date: 12/28/2021 Uzma Oliver/ISSAC This session was completed under the supervision of ARLETTE King, ANTONIO Time in: 926 Time out: 1008 Sx type: R knee stage 1 TKA [...] (CMS/HCC) GERD (gastroesophageal reflux disease) Hyperlipidemia Hyperparathyroidism (CMS/[facility]) Hypertension Lumbar pain OA (osteoarthritis) Obesity Obstetric [...] daughter) Home Adaptive Equipment: Rollator, Lift Chair, Spring Crater, Cane, Wheelchair-manual Home Living Comments: Pt reports [...] Level of Function Prior Function Level of [place]: Needs assistance with ADLs, Needs assistance with [...] Dynamic Sitting-Balance Support: Uni (more content not included)...[facility]11-03-2022 NotePt lives at home with his [...] of the pre-cert process that will be needed.[facility]11-03-2022 NoteSubjective Patient endorses pain to right [...] right knee Loose right total knee arthroplasty ([facility]) 56 yo m with R knee stage 1 revision 12/27/21 who is post op day 1. -NWB RLE in Knee brace. -ID abs per ID. -Appreciate med management. -Pain meds. -DVT proph with eliquis. Dave Reyes [id number] Nelsonville Health Center11-02-2022 NotePt seen and evaluated bedside per RT assess protocol. Pt reports no SOB or difficulty breathing at this time. He reports no pulmonary disease history. Coached pt with deep breathing and pt performed incentive spirometry reaching 2000ml x5. He has no other concerns at this time. Encouraged pt to continue to use IS hourly as tolerated.[facility]11-02-2022 NotePharmacy Dosing Service - Vancomycin Initial Consult Note Pharmacy has been consulted for the dosing and evaluation of Drug: Vancomycin Indication: Right knee periprosthetic infection AUC 400-600 mg*hr/L and trough 10-20 mcg/mL Other Antimicrobial Regimens: ceftriaxone Labs and Renal Function Total body weight: (!) 140 kg (308 lb 6.8 oz) Barnard body weight: 68.4 kg (150 lb 12.7 [...] or questions Thank you, Balwinder Short, PharmD, 12/27/21[facility]11-02-2022 NotePatient: Sukhdeep Simental Procedure Summary Date: 12/27/21 Room / Location: [facility] OPERATING ROOM 02 / [facility] Operating Room Anesthesia Start: 837 Anesthesia Stop: 1205 Procedure: INFECTED PROSTHETIC, STAGE 1 REVISION AND DEBRIDEMENT, REMOVAL OF HARDWARE ALL COMPONENTS, WASHOUT AND SPACER PLACEMENT (Right: Knee) Diagnosis: Chronic instability of right knee 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, initial encounter (CMS/[facility]) Quadriceps weakness Lumbosacral radiculopathy (Chronic instability of right knee [M23.51]) (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, initial encounter (CMS/[facility]) [T84.032A]) (Quadriceps weakness [M62.81]) (Lumbosacral radiculopathy [M54.17]) [...] acceptable Hydration status: acceptable No notable events documented.[facility]11-02-2022 Note Patient: Sukhdeep Simental Procedure Information Anesthesia Start Date/Time: 12/27/21837 Procedure: INFECTED PROSTHETIC, STAGE 1 REVISION AND DEBRIDEMENT, REMOVAL OF HARDWARE ALL COMPONENTS, WASHOUT AND SPACER PLACEMENT (Right: Knee) - biometInpatient Only, reps notified. Location: [facility] OPERATING ROOM 02 / [facility] Operating Room Surgeons: Payton Helm MD [...] (+) Quadriceps weakness Endocrine/Metabolic (+) Morbid obesity (CMS/HCC) Other (+) Anxiety Clinical information reviewed: Tobacco [...] CAA, resident and medical student. Additional Equipment RequestsProtestant Deaconess Hospital11-02-2022 Note Airway Date/Time: 12/27/2021 9:05 AM Urgency: elective Airway not difficult General Information and Staff Patient location during procedure: OR Anesthesiologist: Steve Moses MD Resident/CRO/AMY: AMY Gonzales Performed: other anesthesia staff Indications [...] approach: 1 Number of other approaches attempted: 0[facility] 12-27-2021 NotePeripheral Block Patient location during procedure: pre-op Start time: 12/27/2021 8:24 AM End time: 12/27/2021 8:29 AM Reason for block: at surgeon's request and post-op pain management Staffing Performed: anesthesiologist Anesthesiologist: Steve Moses MD Resident/CRO: AMY Gonzales Other anesthesia staff: Umberto Garcia [...] Heart rate change: no Slow fractionated injection: yes[facility]10-26-2022 Note Attestation signed by Jason Kiser [...] is a 56 y.o. 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 year old male [facility] patient with history of L4-S1 laminectomy and [...] that I have read (more content not included)...[facility]10-21-2022 Evaluation note* Encounter Date Diagnosis Assessment [...] be cultured for infection, gonorrhea, chlamydia, yeast. [facility] Other 10-07-2022 NoteSubjective Sukhdeep Simental is a [...] notes, operative reports, and notes from his package dyer who has cleared him for upcoming right [...] effusion noted. No local (more content not included)...[facility]08-31-2022 Evaluation note* Encounter Date Diagnosis Assessment [...] paraproteinemia due to the CKD and anemia. [facility] Other 04-01-2022 History of Present illness Narrative* [...] this point. Dx: hypoxic respiratory failure * Lucrecia Lake, PURCHASE ANALYST - ASSESSMENT MANAGER - 05/26/2021 12:10 PM EDT Images from the original note were not included. Rogelio Mangle Catcher Progress Note Date: 05/26/2021 Patient name: Sukhdeep [...] sodium chloride CBC: Recent Labs 05/24/21 1558 05/25/21626 WBC 9.6 10.8 HGB 12.7* 12.2* PLT 273 263 BMP: Recent Labs 05/24/21 1558 05/25/21626 NA 132* 139 K 4.2 4.8 CL [...] 2. Ok for d/c from cardiology standpoint. [place] [employer] [phone] * Octavio Mcclellan DO - 05/25/2021 5:42 [...] Foreman RN - 05/25/2021 8:32 AM EDT Mix [employer] Documentation Note Admission Dx: S/P laparoscopic sleeve [...] on an annual basis Tona Foreman RN [place] [employer] * Sonya Ramírez, DO - 05/25/2021 6:45 AM EDT General Surgery [...] IS use 5. DVT ppx: heparin Sonya Ramírez, DO PGY-2 05/25/2021 at 6:45 AM Associated [...] for or 05/24/21.appt dr malone 05/23/21 * Lucrecia Napier RN - 05/08/2021 11:52 AM EDT Day of Surgery/Procedure As a patient at [facility] you can expect quality medical and nursing care that is centered on your individual needs. Our goal is to make your surgical experience as comfortableas possible . Directions to the [facility] is located at [address] [place] [address]. Please pull into the Emergency parking lot and stop at the plastic straightening roll operator ojeda. We offer free plastic straightening roll operator service for all our surgery patients, if you choose not to have plastic straightening roll operator parking we have additional parking across the street.You will enter the facility under the blue canopy/walkway following the [facility] [place] sign. Please stop at the medical office specialist desk where you will be checked in by the staff. If you have any questions please call [phone]. Transportation after your procedure. You will need a friend or family member to drive you home after your procedure. Your driver helper must be18 years of age or older [...] You may shave your face or neck. [place] your teeth but do not swallow water. [...] or the day of surgery, please call [phone], or [phone] [facility] [employer] Work Phone: 1(591) 167-490903-31-2022 Hospital Discharge instructions* Discharge Instr - KAMARI* Jenny Lentz RN - 05/25/2021 5:44 PM EDT PHYSICIAN SIGNATURE: * Additional Instructions* Jenny Lentz RN - 05/26/2021 Discharge Instructions for Bariatric Surgery You had a Laparoscopic Sleeve Gastrectomy (02011) surgery to treat obesity. Recovery from this [...] scheduled appointment, please call the office at [phone]. Call Your Doctor If Any of the [...] sent through Care Everywhere. * Enoxaparin (Lovenox) ([place]) * metoprolol (oral/injection) ([place]or[place]) * acetaminophen and oxycodone ([place]) [facility] Phone: 1(795) 700-814003-09-2022 Hospital Discharge instructions* Instructions* Etelvina Ledbetter APRN - ASSESSMENT MANAGER - 05/03/2021 Pre-operative Instructions Please arrive at [...] list you provided today, ACCORDING TO YOUR BUYER AGENT, PLEASE HOLD ELIQUIS 3 DAYS PRIOR TO [...] public transportation ALONE is not acceptable. -Your driver helper must be 18 years of age or [...] Day of Surgery/Procedure As a patient at [facility] you can expect quality medical and nursing care that is centered on your individual needs. Our goal is to make your surgical experience as comfortableas possible . Directions to the [facility] is located at [address] [place] [address]. Please pull into the Emergency/Surgery Center parking lot and stop at the plastic straightening roll operator ojeda. We offer free plastic straightening roll operator service for all our surgery patients, if you choose not to have plastic straightening roll operator parking we have additional parking across [...] pharmacy bottles in a zip lock bag. [place] your teeth but do not swallow water. [...] DAY OF your surgery, you may call [phone] [facility] Phone: evaluation + Plan note Future Appointments Appointment Date:07/16/2022 02:45:00 PM Scheduled Provider:Cecelia MURILLO MD Location:[facility] Appointment Type:URO Office Visit [facility] evaluation + Plan note Future Appointments Appointment Date:02/04/2023 09:15:00 AM Scheduled Provider:Cecelia MURILLO MD Location:[facility] Appointment Type:URO Office Visit General Surgery [facility] Evaluation + Plan note Future Appointments Appointment Date:02/03/2024 10:30:00 AM Scheduled Provider:Cecelia MURILLO MD Location:[facility] Appointment Type:URO Office Visit Diagnostic Tests Pending * PSA Total 02/04/23 [facility] evalqhrusp note* Diagnosis Pre-op chest exam Pre-operative respiratory examination [facility]: evaldgwgxy note* Diagnosis S/P laparoscopic sleeve gastrectomy- Primary [facility] this encounter [facility] Phone: evalaxlwam noteNo InformationNouniversity of [facility] Get[employer] Other Evaluation noteNo assessment information available [facility] Work Phone: Evaluation note* Diagnosis Lumbar adjacent segment disease with spondylolisthesis- Primary Lumbar adjacent segment disease with spondylolisthesis documented [facility] this [facility]* Diagnosis Lumbar adjacent segment disease with spondylolisthesis- Primary documented in this encounter [facility] note* Diagnosis Lumbar adjacent segment disease with spondylolisthesis- Primary documented in this encounter [facility] note* Diagnosis Radiculopathy, lumbar region- Primary Thoracic or lumbosacral neuritis or radiculitis, unspecified documented [facility] encounter [facility] Diagnosis Onset Date Resolution Status CKD (chronic kidney disease) stage 3, GFR 30-59 ml/min acute [id number] acute Hyperuricemia acute Microscopic hematuria acute Nephrolithiasis acute Secondary hyperparathyroidism acute Type 2 diabetes 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 acute [facility] Work Phone: Evaluation note* Diagnosis Spinal stenosis, lumbar region, with neurogenic claudication- Primary documented in this encounter [facility] Diagnosis Spinal stenosis, lumbar region, with neurogenic claudication- Primary documented in this encounter [facility] general Narrative - Reported* Type Description Date [...] GASTRIC SLEEVE 04/2021 Hospitalization History SEE ABOVE [facility] Other [facility] general Narrative - Reported* Type Description Date [...] REPLACEMENT 04/16 22 Hospitalization History SEE ABOVE [facility] Other Hospital course Narrative No data available for this section [facility] Discharge instructions No data available for this section General Surgery [place] InstructionsNot on filedocumented in this encounter [facility] on filedocumented in this encounter [facility] SystemInstructionsNot on filedocumented in this encounter [facility] SystemProgress note No data available for this section [facility] Laura reason for referral (narrative)* Diagnostic Procedure Only (Routine) - Pending Review Specialty Diagnoses / Procedures Referred By Contac t Referred To Contact XR IMAGING Diagnoses Lumbar adjacent segment disease with spondylolisthesis Procedures XR LUMBAR LIMITED 2V AP/LAT RADEX SPINE LUMBOSACRAL 2/3 VIEWS Helen Mogran PA-C [address] [place] [address] Xr Imaging [facility]95 Referral ID Status Reason Start Date Expiration Date Visits Requested Visits Authorized [id number] Pending Review Auto-Generat ed Referral 3 01/19/2024 1 1 [facility] for referral (narrative)* Diagnostic Procedure Only (Routine) - Pending Review Specialty Diagnoses / Procedures Referred By Contac t Referred To Contact XR IMAGING Diagnoses Radiculopathy, lumbar region Procedures XR LUMBAR LIMITED 2V AP/LAT RADEX SPINE LUMBOSACRAL 2/[place] [address] [place] [id number] Xr Imaging [facility]95 Referral ID Status Reason Start Date Expiration Date Visits Requested Visits Authorized [id number] Pending Review Auto-Generat ed Referral 05/08/2023 06/06/2024 1 1 [facility] for visit Narrative* Auth/Cert Specialty Diagnoses / Procedures Referred By Contac t Referred To Contact Diagnoses Morbid obesity (HCC) Type II diabetes circulatory disorder causing erectile dysfunction (HCC) Hypertension MORBID OBESITY, TYPE II DIABETES, HYPERTENSION Procedures [place] LAP, JUAN RESTRICT PROC, LONGITUDINAL GASTRECTOMY XI ROBOTIC LAPOROSCOPIC GASTRECTOMY SLEEVE, LIVER BIOPSY, EGD- GI SCHEDULED Octavio Mcclellan DO [address] [address] [facility] [address] [place] [address] Referral ID Status Reason Start Date Expiration Date Visits Re quested Visits Authorized [id number] 1 1 Qraved Phone: Advance Directives Documents on File Type Date Recorded Patient Editor Expl anation Advance Directives and Living Will Power of Asbestos Microscopist Advance Directive Response Recorded Date/ Time Advance Directives No September 16 2:32pm Documents on File Type Date Recorded Patient Editor Expl anation ACP-Advance Directive ACP-Power of Asbestos Microscopist Documents on File Type Date Recorded Patient Editor Expl anation ACP-Advance Directive ACP-Power of Asbestos Microscopist Latest Code Status on File Code Status [...] Condition Age at Onset Recorded Date/T kelsi mother History of gastric bypass Unknown father [...] Fluid retention in legs Alexandro Muhammad MD [address] [place] [address] Cj John MD [address] [place] [id number] Scheduling Instructions . Specialty Diagnoses / Procedures Referred By Contac t Referred To Contact [facility] Diagnoses Lumbar adjacent segment disease with spondylolisthesis Procedures CONSULT TO [facility] ([facility]IN) OFFICE/OUTPATIENT [facility] 60-[place] [address] [place] [address] Referral ID Status Reason Start Date Expiration Date Visits Requested Visits Authorized [id number] Pending Review PCP Requested Referral 11/05/2022 11/05/2023 1 1 Specialty Diagnoses / Procedures Referred By Contac t Referred To Contact [facility] Diagnoses Lumbar adjacent segment disease with spondylolisthesis Procedures CONSULT TO PHYSICAL THERAPY PHYSICAL THERAPY EVALUATION [facility] 45 MINS Riddhi Goss, PURCHASE ANALYST.ASSESSMENT MANAGER [address] [place] [address] [facility] [address] [place] [address] Referral ID Status Reason Start Date Expiration Date Visits Requested Visits Authorized [id number] Pending Review Auto-Generat ed Referral 3 02/07/2024 [...] has been treated in the past by senior medical transcriptionist as well as his PCP. They contribute [...] file Gets together: Not on file Attends adventism service: Not on file Active member of [...] 01/08/2020 2:19 PM Patient: Sukhdeep Simental MR#: [id number] : 1965 Age: 54 y.o. 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 [...] []Chair,[]cane, []bracing Are you followed by a hog stomach preparer? [] [x] Name: Are you followed by [...] kidney disease) stage 3, GFR 30-59 ml/min [id number] Hyperuricemia Microscopic hematuria Nephrolithiasis Secondary hyperparathyroidism Type 2 diabetes mellitus with diabetic chronic kidney disease Discharge Instructions * Attachments The following attachments cannot be sent through Care Everywhere. * Back Pain ([place]) documented in this encounter Additional Source Comments (unrecognized sect ion and content) No Status Records FoundNo Status Records FoundNo Status Records FoundNo Status Records FoundNo Status Records FoundNo Status Records FoundNo Status Records FoundNo Status Records FoundNo Status Records FoundNo Status Records FoundNo Status Records FoundNo Status Records Found INFORMATION SOURCE (unrecogn ized section and content) DATE CREATED AUTHOR 04/18/2019 [facility] DATE CREATED AUTHOR AUTHOR'S ORGANIZ ATION 06/10/2019 [facility] DATE CREATED AUTHOR AUTHOR'S ORGANIZ ATION 07/21/2021 [facility] DATE CREATED AUTHOR AUTHOR'S ORGANIZ ATION 10/22/2021 [facility] DATE CREATED AUTHOR AUTHOR'S ORGANIZ ATION 01/23/2022 [facility] DATE CREATED AUTHOR AUTHOR'S ORGANIZ ATION 08/04/2022 [facility] DATE CREATED AUTHOR AUTHOR'S ORGANIZ ATION 10/27/2022 [facility] DATE CREATED AUTHOR AUTHOR'S ORGANIZ ATION 12/12/2022 [facility] DATE CREATED AUTHOR AUTHOR'S ORGANIZ ATION 07/27/2023 [facility] DATE CREATED AUTHOR AUTHOR'S ORGANIZ ATION 10/07/2023 [facility] DATE CREATED AUTHOR AUTHOR'S ORGANIZ ATION 02/07/2024 [facility] DATE CREATED AUTHOR AUTHOR'S ORGANIZ ATION 02/16/2024 [facility] Reason for Visit (unrecogniz ed section and content) Status Reason Specialty Diagnoses / Procedures Referred By Contact Referred To Contact Pending Review Diagnoses Hx of total knee arthroplasty, right Procedures XR BONE LENGTH STUDY Alexandro Muhammad MD [address] [place] [address] Reason Comments Pain Status Reason Specialty Diagnoses / Procedures Referred By Contact Referred To Contact Closed Cardiovascular Medicine Diagnoses Localized edema Procedures ECHOCARDIOGRAM [place] ECHO HEART XTHORACIC,COMPLETE W DOPPLER Suzanne Pruett MD [address] [place] [address] Horace Buc Echocardiograph y [address] [place] [address] Reason Comments Back Pain Lower back pain s/p slip on ice Buttocks Pain Rt buttocks pain Reason Comments New Patient Lumbar spine Specialty Diagnoses / Procedures Referred By Contac t Referred To Contact Neurosurgery / NEUROSURGERY Diagnoses lumbar spine eHealth records requested Procedures REFERRAL TO [facility] Jason Kiser [address] [place] [address] [place] [address] [place] [address] Referral ID Status Reason Start Date Expiration Date V isits Requested Visits Authorized [id number] Outside PCP 11/05/2022 01/04/2023 99 99 Reason [...] POST OP NEUS/NRES Self Myrna Schrader PA-C [address] [place] [id number] Referral ID Status Reason Start Date Expiration Date Visits Re quested Visits Authorized [id number] Closed 12/20/2022 02/24/2023 1 1 Reason Comments Received Outside Medical Records [facility] Reason Comments Follow Up Specialty Diagnoses / Procedures Referred By Contac t Referred To Contact Neurosurgery / NEUROSURGERY Diagnoses Follow-up exam Follow Up Procedures OFFICE/OUTPATIENT ESTABLISHED MOD MDM 30-39 MIN EST NI PATIENT Self Myrna Schrader PA-C [address] [place] [id number] Referral ID Status Reason Start Date Expiration Date Visits Re quested Visits Authorized [id number] Closed 02/07/2023 02/07/2023 1 1 Reason Comments PT Certification Specialty Diagnoses / Procedures Referred By Contac t Referred To Contact Neurosurgery / NEUROSURGERY Diagnoses Lumbar adjacent segment disease with spondylolisthesis discuss imaging and C requirements Procedures PHYS/QHP TELEPHONE EVALUATION 5-10 MIN [place] [address] [place] [id number] Referral ID Status Reason Start Date Expiration Date V isits Requested Visits Authorized [id number] Denied Patient Cleared - Admin/Chairm an/Director advise to proceed or did not respond 05/08/2023 08/06/2023 1 0 Reason Comments Imaging Disc Reason Comments Appointment Orders Reason Comments Results Reason Comments Back Pain Reason Comments Back Pain [facility] Care Teams (unrecognized sec tion and content) [...] November 07, 2023 End: November 07, 2023 Winding Rack Operator Relationship Specialty Start Date End Date Derick Isabel MD [address] [place] [address] PCP - General Family Medicine 04/11/19 Winding Rack Operator Relationship Specialty Start Date End Date Derick Isabel MD [address] [place] [address] PCP - General Family Medicine 04/11/19 Winding Rack Operator Relationship Specialty Start Date End Date Derick Isabel MD [address] [place] [address] PCP - General Family Medicine 04/11/19 Winding Rack Operator Relationship Specialty Start Date End Date Derick Isabel MD [address] [place] [address] PCP - General Family Medicine 04/11/19 Team Status: Inactive Member Role Status Dates STEPH Sarkar Attending Provider Active Team Status: Inactive Member Role Status Dates PHYSICIAN NO FAMILY Primary Care Provider Active Gianni Richter DO Attending Provider Active Team Status: Inactive Member Role Status Dates STEPH Sarkar Attending Provider Active PHYSICIAN NO FAMILY Primary Care Provider Active Winding Rack Operator Relationship Specialty Start Date End Date Derick Isabel MD PCP - General Family Medicine 11/06/13 Winding Rack Operator Relationship Specialty Start Date End Date Derick Isabel MD PCP - General Family Medicine 11/06/13 Winding Rack Operator Relationship Specialty Start Date End Date Derick Isabel MD PCP - General Family Medicine 11/06/13 Winding Rack Operator Relationship Specialty Start Date End Date Derick Isabel MD PCP - General Family Medicine 11/06/13 Winding Rack Operator Relationship Specialty Start Date End Date Derick Isabel MD PCP - General Family Medicine 11/06/13 Winding Rack Operator Relationship Specialty Start Date End Date Derick Isabel MD PCP - General Family Medicine 11/06/13 Winding Rack Operator Relationship Specialty Start Date End Date Derick Isabel MD PCP - General Family Medicine 11/06/13 Winding Rack Operator Relationship Specialty Start Date End Date Derick Isabel MD PCP - General Family Medicine 11/06/13 Winding Rack Operator Relationship Specialty Start Date End Date Derick Isabel MD PCP - General Family Medicine 11/06/13 Winding Rack Operator Relationship Specialty Start Date End Date Derick Isabel MD PCP - General Family Medicine 11/06/13 Winding Rack Operator Relationship Specialty Start Date End Date Derick Isabel MD PCP - General Family Medicine 11/06/13 Winding Rack Operator Relationship Specialty Start Date End Date Derick Isabel MD PCP - General Family Medicine 11/06/13 Winding Rack Operator Relationship Specialty Start Date End Date Derick Isabel MD [address] [place] [address] PCP - General Family Medicine 10/08/18 Winding Rack Operator Relationship Specialty Start Date End Date Derick Isabel MD PCP - General Family Medicine 10/08/18 Winding Rack Operator Relationship Specialty Start Date End Date Derick Isabel MD PCP - General Family Medicine 10/08/18 Winding Rack Operator Relationship Specialty Start Date End Date Derick Isabel MD PCP - General Family Medicine 10/08/18 Ordered Prescriptions (unrec ognized section and content) [...] 1839 (Given - Provider: Milagros Reich RN) 09 (Given - Provider: Jenny Lentz, RN) ceFAZolin (ANCEF) 1,000 mg in sterile [...] Painting RN) 0843 (Given - Provider: Milagros Reich RN)2131 (Given - Provider: Batsheva Carias, RN) 09 (Given - Provider: Jenny Lentz, RN)2099 (Due) famotidine (PEPCID) 20 mg in sodium chloride (PF) 10 mL injection(Linked Group 1) 20 mg, IntraVENous, 2 TIMES DAILY, First dose on Sat05/24/21 at 2100, Until Discontinued, Administer if oral route cannot be used, Post-op 2116 (See Alternative - Provider: Giselle Painting RN) 0839 (See Alternative - Provider: Milagros Reich RN)2131 (See Alternative - Provider: Batsheva Carias, RN) 100 (See Alternative - Provider: Jenny Lentz, RN)2099 (Due) famotidine (PEPCID) tablet 20 mg(Linked Group 1) 20 mg, Oral, 2 TIMES DAILY, First dose on Sat05/24/21 at 2100, Until Discontinued, Post-op 2116 (Given - Provider: Giselle Painting RN) 0839 (Given - Provider: Milagros Reich RN)2131 (Given - Provider: Batsheva Carias, RN) 1008 (Given - Provider: Jenny Lentz, RN)2100 (Due) gabapentin (NEURONTIN) capsule 100 mg 100 mg, Oral, 3 TIMES DAILY, First dose on Sat05/24/21 at 1530, Until Discontinued 1529 (Due)2116 (Given - Provider: Giselle Painting RN) 0838 (Not Given - Provider: Milagros Reich RN - Reason: Patient/family refused)1405 (Not Given - Provider: Milagros Reich RN - Reason: Patient/family refused)213 (Not Given - Provider: Batsheva Carias RN - Reason: Patient/family refused) 0900 (Not Given - Provider: Jenny Lentz, BRETT - Reason: Patient/family refused)1400 (Due)2100 (Due) ipratropium-albuterol (DUONEB) nebulizer solution 1 ampule 1 ampule, Inhalation, EVERY 6 HOURS WHILE AWAKE, First dose on Sat05/24/21 at 1530, Until Discontinued, Initiate RT Bronchodilator Protocol: Yes, q6 hours and PRN 153 (Due)2057 (Not Given - Provider: Naheed Fernando RCP - Reason: Other - Comment: pt. sleeping) 0745 (Given - Provider: Dottie Otoole RCP)1301 (Given - Provider: Dottie Otoole RCP)1949 (Given - Provider: Yamilka Doyle RCP) 0729 (Not Given - Provider: Swapna De [...] Oral, 2 TIMES DAILY, First dose on Sat05/25/21 at 1315, Until Discontinued 1408 (Given - Provider: Milagros Reich RN)2132 (Given - Provider: Batsheva Carias RN) 1009 (Given - Provider: Jenny Lentz, [...] Milagros Reich RN - Reason: IV Fluid Infusing)213 (Given - Provider: Batsheva Carias RN) 1006 [...] Mena RN) 0730 (Stopped - Provider: Jenny Lentz, RN) lactated ringers infusion (CANCELED) IntraVENous, at [...] Pricilla Vivar, BRETT)1550 (Given - Provider: Pricilla Vivar RN) HYDROmorphone (DILAUDID) injection 1 mg HYDROmorphone (DILAUDID) [...] ordered., Post-op 1637 (Given - Provider: Milagros Reihc RN)1933 (Given - Provider: Milagros Reich RN) 0015 (Given - Provider: Giselle Painting, BRETT)0841 (Given - Provider: Milagros Reich RN)2137 (Given - Provider: Batsheva Carias RN) midazolam PF (VERSED) injection 1 mg (CANCELED) 1 mg, IntraVENous, EVERY 10 MIN PRN, 2 doses, Starting on Sat05/24/21 at 1024, Until Sat05/24/21 at 1620, Anxiety, Anxiety pre-op. Max dose 2 mg., Pre-op (day of surgery) 1043 (Given - Provider: Molly Williamson, BRETT) ondansetron (ZOFRAN) injection 4 mg 4 mg, IntraVENous, EVERY 6 HOURS PRN, Starting on Sat05/24/21 at 1628, Until Discontinued, Nausea, Post-op 2126 (Given - Provider: Giselle Painting RN) 0409 (Given - Provider: Giselle Painting, RN)1616 (Given - Provider: Milagros Reich RN) oxyCODONE-acetaminophen (PERCOCET) 5-325 MG per tablet 1 tablet(Linked Group 2) Mg/kg dosing is based on the oxycodone component., 1 tablet, Oral, EVERY 6 HOURS PRN, Starting on Sat05/24/21 at 1507, Until Discontinued, Pain Moderate (4-6), Maximum dose of acetaminophen is 4000 mg from all sources in 24 hours. 2125 (See Alternative - Provider: Giselle Painting RN) 0422 (See Alternative - Provider: Giselle Painting RN)1148 (See Alternative - Provider: Milagros Reich RN)183 (See Alternative - Provider: Milagros Reich RN) 0051 (See Alternative - Provider: Alesha Shaikh, BRETT)0755 (See Alternative - Provider: Jenny Lentz, BRETT)1348 (See Alternative - Provider: Jenny Lentz, BRETT) oxyCODONE-acetaminophen (PERCOCET) 5-325 MG per tablet 2 tablet(Linked Group 2) Mg/kg dosing is based on the oxycodone component., 2 tablet, Oral, EVERY 6 HOURS PRN, Starting on Sat05/24/21 at 1507, Until Discontinued, Pain Severe (7-10), Maximum dose of acetaminophen is 4000 mg from all sources in 24 hours. 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.) sodium chloride flush 0.9 % injection 5-40 [...] or prosecute any alcohol or drug abuse patient.[facility] the event this information is protected by the Federal Confidentiality of Alcohol and Drug Abuse Patient Records regulations: The Federal rules restrict any use of the information to criminally investigate or prosecute any alcohol or drug abuse patient.[facility] the event this information is protected by the Federal Confidentiality of Alcohol and Drug Abuse Patient Records regulations: The Federal rules restrict any use of the information to criminally investigate or prosecute any alcohol or drug abuse patient.[facility] the event this information is protected by the Federal Confidentiality of Alcohol and Drug Abuse Patient Records regulations: The Federal rules restrict any use of the information to criminally investigate or prosecute any alcohol or drug abuse patient.[facility]stown[facility] the event this information is protected by the Federal Confidentiality of Alcohol and Drug Abuse Patient Records regulations: The Federal rules restrict any use of the information to criminally investigate or prosecute any alcohol or drug abuse patient.[facility] the event this information is protected by the Federal Confidentiality of Alcohol and Drug Abuse Patient Records regulations: The Federal rules restrict any use of the information to criminally investigate or prosecute any alcohol or drug abuse patient.[facility]stownIn the event this information is protected by the Federal Confidentiality of Alcohol and Drug Abuse Patient Records regulations: The Federal rules restrict any use of the information to criminally investigate or prosecute any alcohol or drug abuse patient.[facility]stownIn the event this information is protected by the Federal Confidentiality of Alcohol and Drug Abuse Patient Records regulations: The Federal rules restrict any use of the information to criminally investigate or prosecute any alcohol or drug abuse patient.[facility]stownIn the event this information is protected by the Federal Confidentiality of Alcohol and Drug Abuse Patient Records regulations: The Federal rules restrict any use of the information to criminally investigate or prosecute any alcohol or drug abuse patient.[facility]stownIn the event this information is protected by the Federal Confidentiality of Alcohol and Drug Abuse Patient Records regulations: The Federal rules restrict any use of the information to criminally investigate or prosecute any alcohol or drug abuse patient.[facility]stownIn the event this information is protected by the Federal Confidentiality of Alcohol and Drug Abuse Patient Records regulations: The Federal rules restrict any use of the information to criminally investigate or prosecute any alcohol or drug abuse patient.[facility]stownIn the event this information is protected by the Federal Confidentiality of Alcohol and Drug Abuse Patient Records regulations: The Federal rules restrict any use of the information to criminally investigate or prosecute any alcohol or drug abuse patient.[facility]In the event this information is protected by the Federal Confidentiality of Alcohol and Drug Abuse Patient Records regulations: The Federal rules restrict any use of the information to criminally investigate or prosecute any alcohol or drug abuse patient.[facility]stownIn the event this information is protected by the Federal Confidentiality of Alcohol and Drug Abuse Patient Records regulations: The Federal rules restrict any use of the information to criminally investigate or prosecute any alcohol or drug abuse patient.[facility]stownIn the event this information is protected by the Federal Confidentiality of Alcohol and Drug Abuse Patient Records regulations: The Federal rules restrict any use of the information to criminally investigate or prosecute any alcohol or drug abuse patient.[facility]stownIn the event this information is protected by the Federal Confidentiality of Alcohol and Drug Abuse Patient Records regulations: The Federal rules restrict any use of the information to criminally investigate or prosecute any alcohol or drug abuse patient.[facility]stownIn the event this information is protected by the Federal Confidentiality of Alcohol and Drug Abuse Patient Records regulations: The Federal rules restrict any use of the information to criminally investigate or prosecute any alcohol or drug abuse patient.[facility]stownIn the event this information is protected by the Federal Confidentiality of Alcohol and Drug Abuse Patient Records regulations: The Federal rules restrict any use of the information to criminally investigate or prosecute any alcohol or drug abuse patient.[facility] FOR RECORDS PERTAINING TO PATIENTS WHO ARE [...] BE BASED ON THE PRIMARY CLINICAL RECORDS. [facility] [employer] [facility]. provides no warranty or guarantee of the accuracy or completeness of information in this document.
[2024-03-17 07:02] LABS: Basophils Absolute Auto 0.1 10^3/uL (0.0-0.1); Basophils Percent Auto 0.8 % (0.2-2.0); Eosinophils Absolute Auto 0.2 10^3/uL (0.0-0.7); Eosinophils Percent Auto 3.7 % (0.9-7.0); Hematocrit 47.8 % (42.0-54.0); Hemoglobin 16.3 g/dL (14.0-18.0); Immature Granulocytes Abs Auto 0.01 10^3/uL (0.00-0.03); Immature Granulocytes Pct Auto 0.2 % (0.0-0.5); Lymphocytes Absolute Auto 2.1 10^3/uL (1.2-3.8); Lymphocytes Percent Auto 34.9 % (20.5-60.0); Mean Corpuscular HGB Conc 34.1 g/dL (29.9-35.2); Mean Corpuscular Hemoglobin 31.9 pg (25.9-34.0); Mean Corpuscular Volume 93.5 fL (80.0-94.0); Mean Platelet Volume 8.8 fL (9.5-13.5); Monocytes Absolute Auto 0.5 10^3/uL (0.3-0.8); Monocytes Percent Auto 8.8 % (1.7-12.0); Neutrophils Absolute Auto 3.1 10^3/uL (1.4-6.5); Neutrophils Percent Auto 51.6 % (43.0-75.0); Platelet Count 215 10^3/uL (150-450); Red Blood Count 5.11 10^6/uL (4.70-6.10); Red Cell Distribution Width 11.6 % (11.0-15.0); White Blood Count 5.9 10^3/uL (4.0-11.0)
--- NOTE | 2024-03-17 07:12 | XR_ITS ---
The [address] [address] Patient Name: SUKHDEEP SIMENTAL MRN: [id number] date: 1965 Sex: M Assigned Patient Location: LAB Current Patient Location: LAB Accession/Order Number: [id number] Exam Date: 03/17/2024 07:03 Report Date: 03/17/2024 12:49 At the request of: BLAYNE ISABEL Procedure: XR knee RT 3V PROCEDURE: XR knee RT 3V HISTORY: Right knee pain, M25.561 COMPARISON: XR knee right 01/08/2020 FINDINGS: BONES: 1. Total knee replacement and resurfacing of patella. No appreciable hardware fracture or loosening. No bone fracture. Small ossifications/bone fragments favoring sequela of prior surgery. SOFT TISSUES:No visible soft tissue swelling. EFFUSION:None visible. OTHER: Negative. XR/XR knee RT 3V IMPRESSION: 1. Total right knee replacement without appreciable hardware failure or acute abnormality. Electronically authenticated by: AUSTIN LARIOS Date: 03/17/2024 12:49
[2024-03-17 07:14] LABS: Erythrocyte Sedimentation Rate 8 mm/hr (<=20)
[2024-03-17 07:47] LABS: Alanine Aminotransferase 33 U/L (16-63); Albumin Level 3.5 g/dL (3.4-5.0); Alkaline Phosphatase 70 U/L (46-116); Anion Gap 7.5; Aspartate Amino Transferase 20 U/L (15-37); BUN Creatinine Ratio 15.6; Bilirubin Total 0.7 mg/dL (0.2-1.0); Calcium 9.2 mg/dL (8.5-10.1); Carbon Dioxide 32.1 mmol/L (21.0-32.0); Chloride 108 mmol/L (98-107); Estimated GFR (African America >60 (>=60 mL/min/1.73m^2); Estimated GFR (Non-African Ame 54 (>=60 mL/min/1.73m^2); Globulin 3.5 g/dL; Glucose 101 mg/dL (74-106); Potassium 4.6 mmol/L (3.5-5.1); Sodium 143 mmol/L (136-145)
[2024-03-17 08:01] LABS: C Reactive Protein <0.50 mg/dL (<=0.50)
== END 2024-03-17 06:41 | disposition home or self-care (01) ==
LOC: LAB 06:41
PROVIDERS: PCP Family Medicine; Visit Provider Family Medicine
DX: M25.561 Pain in right knee (principal); Z96.651 Presence of right artificial knee joint
CPT/HCPCS: 36415; 73562; 80053; 85025; 85652; 86140

== ENCOUNTER 2024-04-07 10:08 | Outpatient (OUT) | payer OTHER, SELFPAY ==
--- NOTE | 2024-04-07 10:10 | CT_ITS ---
The [address] [address] Patient Name: SUKHDEEP SIMENTAL MRN: [id number] date: 1965 Sex: M Assigned Patient Location: CT Current Patient Location: Accession/Order Number: [id number] Exam Date: 04/07/2024 10:15 Report Date: 04/08/2024 05:34 At the request of: BLAYNE ISABEL Procedure: CT knee RT wo con EXAMINATION: CT knee RT wo con HISTORY: Right Knee Pain COMPARISON: XR knee right 03/17/2024 TECHNIQUE: Multi-planar CT images were created without and/or with IV contrast according to examination type. Dose reduction techniques were achieved by using automated exposure control and/or adjustment of mA and/or kV according to patient size and/or use of iterative reconstruction technique. FINDINGS: BONES: Total knee replacement and resurfacing of the patella. No appreciable hardware fracture or bone fracture. The proximal and distal ends of the medullary shafts within the femur and tibia were not included. SOFT TISSUES: No appreciable soft tissue swelling or inflammatory changes. Evaluation is slightly limited due to significant amount of metallic streak artifact. EFFUSION: Small amount of fluid within joint capsule cephalad to the patella. OTHER: Negative. CT/CT knee RT wo con IMPRESSION: 1. No appreciable hardware failure or bone fracture. Please note limitations above. 2. Small joint effusion/fluid within joint capsule cephalad to the patella. 3. No appreciable surrounding inflammatory changes/edema/evidence of infectious etiology Electronically authenticated by: AUSTIN LARIOS Date: 04/08/2024 05:34
== END 2024-04-07 10:09 | disposition home or self-care (01) ==
LOC: CT 10:08
PROVIDERS: PCP Family Medicine; Visit Provider Family Medicine
DX: M25.561 Pain in right knee (principal); Z96.651 Presence of right artificial knee joint
CPT/HCPCS: 73700

== ENCOUNTER 2024-04-10 11:21 | Outpatient (OUT) | payer OTHER, SELFPAY ==
--- NOTE | 2024-04-10 11:26 | XR_ITS ---
The [place] [id number] Patient Name: SUKHDEEP SIMENTAL MRN: [id number] date: 1965 Sex: M Assigned Patient Location: [facility] Current Patient Location: Accession/Order Number: [id number] Exam Date: 04/10/2024 11:30 Report Date: 04/11/2024 08:26 At the request of: BLAYNE ISABEL Procedure: XR chest 2V EXAMINATION: XR chest 2V HISTORY: Cough COMPARISON: 12/24/2022 TECHNIQUE: PA and lateral FINDINGS: LUNGS: No significant pulmonary parenchymal abnormalities. VASCULATURE: No increased pulmonary vasculature. PLEURA: No pneumothorax, effusion, or pleural thickening. CARDIAC: No cardiomegaly or cardiac silhouette abnormality. MEDIASTINUM: No visible mass or adenopathy. BONES: No fracture or visible bone lesion. OTHER: Negative. XR/XR chest 2V IMPRESSION: No acute cardiopulmonary process Electronically authenticated by: OBIE TSE Date: 04/11/2024 08:26
== END 2024-04-10 11:22 | disposition home or self-care (01) ==
LOC: LAB 11:23 → RAD 11:26
PROVIDERS: PCP Family Medicine; Visit Provider Family Medicine
DX: R05.9 Cough, unspecified (principal)
CPT/HCPCS: 71046

== ENCOUNTER 2024-07-16 08:19 | Outpatient (OUT) | payer OTHER, SELFPAY ==
--- OUTSIDE RECORDS SUMMARY | 2021-07-31 04:10 | XMS_ITS | Continuity of Care Document ---
Author Organization [facility] Address [address] [place] [address] Phone Care Team Providers Care Manager Unit Name Role Phone Andrés Faye MD Unavailable Unavailab le Allergies, Adverse Reactions, Alerts Substance Reaction Status Criticality IODINE RashRash Active No Information Medications Medication Instructions Dosage Effective Dates (start - stop) Status Comments Cardura 4 mg tablet take 1 tablet by ora l route every day 4 MG - Active Avapro 300 mg tablet take 1 tablet by or al route every day 300 MG - Active Zanaflex 4 mg capsule take 1 capsule by oral route every 6 - 8 hours as needed not to exceed 3 doses in 24 hours 4 MG - Active trazodone 50 mg tablet take 0.5 tablet b y oral route every day at bedtime 25 MG - Active indomethacin 50 mg capsule take 1 capsule by oral route 3 times every day with food 50 MG - Active simvastatin 10 mg tablet take 1 tablet by oral route every day in the evening 10 MG - Active spironolactone 100 mg tablet take 1 tablet by oral route every day 100 MG - Active Flomax 0.4 mg capsule take 1 capsule by oral route every day 1/2 hour following the same meal each day 0.4 MG - Active Protonix 40 mg tablet,delayed release take 1 tablet by oral route every day 40 MG - Active Eliquis 5 mg tablet take 1 tablet by ora l route 2 times every day 5 MG - Active testosterone cypionate 100 mg/mL intramuscular oil inject 0.5 milliliter by intramuscular route every 4 weeks 50 MG - Active Procedures Procedure Date POSTOP FOLLOW-UP VISIT Advance Directives Directive Yes / No Effective Date File Name No Information Encounters Encounter Description Practice Location Reason(s) For Visit Diagnoses Date Provider Providers Copied on Encounter [facility], [address], [place], [place], [id number], [place] tel:[phone] [facility] venous insufficiency (chief complaint)Comme nt (chief complaint) Acute saddle pulmonary embolism with acute cor pulmonale Preeti Bowen. [facility], [address], [place], [address], [place]. tel:[phone] Referring Provider: Adnrés Gee MD, [address], [place], [address]. tel:[phone] Family History Family Member Type Diagnosis Age At Onset No Information Payers Payer name Insurance type Covered republican ID Authoriza tion(s) No Information Social History Type Description Quantity Date Captured Comments Alcohol Use Details Unknown Caffeine Use Details Unknown Tobacco Use Status Current non-smoker Smoking Status Never smoker Non-Smoking Tobacco Use Details : No Details Available : No Details Available Sex Male Vital Signs Date / Time: Height Weight BMI Pulse Rate Blood Pressure Temperature Respiratory Rate Body Surface Area Head Circumference Head Circ. Percentile Wt./Jose Eduardo. Percentile BMI percentile Pulse Ox Inhaled Ox 8:23 AM 99 /min 149/84 mm[Hg] 96.80 F 18 /min 96 % 21 % Chief Complaint And Reason For Visit From encounter dated 07/31/2021 08:10'. venous insufficiency (chief complaint). Description: It [...] therapy he will need follow-up with a pipe organ mechanic apprentice to clear him from home oxygen use. [...] be on anticoagulation at least 6 months. Reason For Referral Reason For Referral No Information History Of Present Illness Encounter Date Complaint [...] therapy he will need follow-up with a pipe organ mechanic apprentice to clear him from home oxygen use. [...] at least 6 months. Functional Status Date Functional Assessmen t No Information Instructions Date Instruction Additional Infor clint No Information Assessments Type Assessment Date assessment Acute saddle pulmonary embolism with acute cor pulmonale impression Unfortunately I memo ot prove holding his anticoagulation any sooner than 6 months. He has significant perioperative risk of a recurrent of thromboemboli. In terms of his oxygen he will need to see a pipe organ mechanic apprentice of to clear whether not he can be taken off home oxygen therapy. I plan to see him back in 6 months. Mental Status Date Cognitive Assessment Orientation - [place] ed to time, place, person, situation. Patient Care Teams Name Effective Dates (start - stop) Status Members No Information
--- OUTSIDE RECORDS SUMMARY | 2024-05-15 10:48 | XMS_ITS ---
Author Organization The [facility] in [place] Address [address] [place] [address] Care Team Providers Care Food Service Coordinator Name Role Phone ABELARDO PACKER MD Primary Care Provider Abelardo Packer Unavailable [phone] Helm's- LMTCB X 1 Encounters Encounter Location Date Provider Diagnosis [facility] [address] [place] [address] 05/15/2024 Abelardo Packer Plan Of Treatment No Information Progress Notes * KAMILLE AldoDOB:1965 (4 0 yo M)Acc No.[id number]:05/15/2024 Patient: Aldo DIXON :1965 A ge:58 Y S ex:Male Address:[address] [place], [address] * true * Date: Generated for Printi ng/Faxing/eTransmitting on: 0 07/16/2024 08:23 AM EDT
--- OUTSIDE RECORDS SUMMARY | 2024-06-15 06:45 | XMS_ITS ---
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 Name Role Phone ABELARDO ISABEL MD Primary Care Provider Abelardo Isabel Unavailable [phone] Allergies No Known Allergies REASON FOR VISIT adipex Medications Medication SIG (Take, Route, Frequency, Duration) Notes Start Date End Date Status Testosterone Cypionate 200 mg/mL INJECT 3/4 mls INTRAMUSCULARLY EVERY 2 (TWO) weeks *MUST LAST 30 DAYS* for 30 02/25/2024 Active Tamsulosin HCl 0.4 mg TAKE 1 CAPSULE BY MOUTH DAILY for 30 Active traZODone HCl 150 MG 1 tablet at bedtime Orally Once a day for 30 days Active tiZANidine HCl 4 mg TAKE 2 TABLETS BY [facility] AT BEDTIME for 30 Active Triamcinolone Acetonide 0.1 % 1 application Externally Twice a day for 30 07/31/2023 Active Omeprazole 20 mg TAKE 1 CAPSULE BY MO UT TWICE DAILY 30 MINUTES BEFORE morning meal for 30 Activ e oxyCODONE-Acetaminophen 10-325 MG TAKE 1 TABLET BY MOUTH EVERY 6 HOURS NEEDED *MUST LAST 30 DAYS* for 30 06/03/2024 Activ e Simvastatin 10 MG 1 tablet Orally Once a day for 90 days Active Reglan 10 MG 1 tablet before meal s Orally Twice a day for 90 days Active Adipex-P 37.5 MG 1 tablet before lo kfast Orally Once a day 06/15/2024 Active Doxycycline Monohydrate 100 MG 1 capsule Orally bid for 10 days 05/15/2024 Active Doxepin HCl 10 mg TAKE 1 TO 2 CAPSULES BY MOUTH EVERY 6 HOURS NEEDED FOR 30 DAYS for 30 Active Ketoconazole 2 % 1 application [employer] ally bid for 14 days 04/03/2024 Active Irbesartan 300 mg TAKE 1/2 (ONE-HALF) OF A TABLET BY MOUTH ONCE DAILY for 60 Active BD Luer-Meli Syringe 22G X 1-1/2 3 ML Use 1 (ONE) syringe as directed once a week for use with testosterone for 90 Active Doxazosin Mesylate 4 mg TAKE 1 TABLET BY MOUTH ONCE DAILY for 30 Active Bumetanide 1 mg TAKE 1 TABLET BY JUAN CARLOS TH ONCE DAILY for 30 Active Social History Tobacco Use: Social History Observation Description Date Details (start date - stop date) Never Smoker NA - NA Tobacco Use/Smoking Question Answer Notes Patient is a nonsmoker AUDIT-C (Standard) Question Answer Notes Did you have a drink containing alcohol in the p ast year? No Points 0 Interpretation Negative Vital Signs Blood pressure systolic 116 mm Hg 06/16/19 25 Blood pressure diastolic 80 mm Hg 025 Height 69 in 06/15/2024 Weight 271.6 lbs 06/15/2024 BMI 40.1 kg/m2 06/15/2024 Encounters Encounter Location Date Provider Diagnosis [address] [address] 06/15/2024 Abelardo Isabel Spondylosis without myelopathy or radiculopathy, lumbar region M47.816 Assessments Encounter Date Diagnosis (ICD Code) Assessment Notes Treatment Notes Treatment Clinical Notes Section Notes 06/15/2024 Spondylosis without myelopathy or radiculopathy, 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ICD-10 - M47.816) Plan Of Treatment Medication Medication Name Sig Start Date Stop Date Notes Adipex-P 37.5 MG 1 tablet before lo kfast Orally Once a day 06/15/2024 Progress Notes * Aldo SIMENTALDOB:1965 ([age] yo M)Acc No.[id number]:06/15/2024 Progress Note Patient: Aldo DIXON Provider: Marisabel Isabel ([facility])MD :1965 A ge:58 Y S ex:Male Date:06/15/2024 Address:[facility] [address] Pcp:ABELARDO ISABEL MD Check In:10:43 AM ESTCheck O ut:11:31 AM EST Subjective: * Chief Complaints: * A dipex * ROS: E ENT: hearing changes d enies. v isual changes d enies.?non-healing mouth sores d enies. s wollen glands or neck lumps d enies. h oarseness d enies. s ore throat d enies. d ifficulty swallowing d enies. n ose bleeds d enies. n jenn congestion d enies. e ar ache d enies. e ar discharge?denies. r inging in ears d enies. l ight sensitivity d enies. e ye pain d enies. b lurring d enies. e ye irritation d enies. d ouble vision d enies.?vision loss d enies. G eneral/Constitutional: Sweats: D enies. F atigue d enies. S leep problems d enies. A norexia d enies. M alaise d enies. W eight loss d enies.?Fatigue or Weakness d enies. F ever or Chills d enies. C ardiovascular: Shortness of Breath w/lying flat d enies. L ightheadedness/dizziness d enies. C hest tightness/ heavy pressure d enies. S welling of legs, ankles, or feet d enies. W aking up with shortness of breath d enies. C hest pain denies. P alpitations d enies. W eight gain d enies. R espiratory: Chronic or frequent cough d enies. C oughing up blood?denies. D ifficulty breathing d enies. P roductive cough d enies. S noring?denies. S hortness of breath that awakens from sleep (PND) d enies. C hest pain d enies. S putum production d enies. W heezing d enies. M usculoskeletal: Joint pain d enies. J oint Fluid d enies. B ack pain d enies. K nee pain d enies. N herman pain d enies. J oint Stiffness d enies. M uscle cramps d enies. W eakness of muscles d enies. A rthritis d enies. M uscle aches d enies. P ain in shoulder(s) d enies. S wollen joints d enies. * Active Problem List I26.02 Acute saddle pulmona ry embolism with acute cor pulmonale Modified On:07/24/2021U Status:confirmed M51.36 Other intervertebral disc degeneration, lumbar region Modified On:08/01/2022U Status:confirmed E29.1 Testicular hypofunct ion Modified On:07/11/2022U Status:confirmed R19.7 Acute diarrhea Modified On:09/05/2022U Status:confirmed L03.90 Cellulitis Modified On:09/21/2022U Status:confirmed B02.9 Shingles Modified On:11/12/2022U Status:confirmed M47.816 Spondylosis without myelopathy or radiculopathy, lumbar region Modified On:01/09/2023U Status:confirmed J21.9 Acute bronchiolitis Modified On:12/14/2022U Status:confirmed J18.1 Left lower lobe cons olidation Modified On:12/24/2022U Status:confirmed M25.561 Knee pain, right Modified On:03/16/2024U Status:confirmed * Medical History: * Surgical History: g astric sleeve 05/16ankle surgery 05/2014knee surgery 04/19Lumbar and sacral fusion 12/07/22 * Hospitalization/Major Diagno stic Procedure: s ee above * Family History: F ather: 67 yrs, diagnosed with Other malignant neoplasm of unspecified site. M other: alive. B rother(s): alive. D aughter(s): alive. 2 brother(s) - healthy. 1 daughter(s) - healthy. . * Social History: T obacco Use: T obacco Use/Smoking P atient is a n onsmoker D rug/Alcohol: A JARRELL-C (Standard) D id you have a drink containing alcohol in the past year? N o P oints 0 I nterpretation N egative * Medications: T akingAdipex-P(Phentermine HCl) 37.5 MG Tablet 1 tablet before breakfast Orally Once a day BD Luer-Meli Syringe(Syringe/Needle (Disp)) 22G X 1-1/2 3 ML Miscellaneous Use 1 (ONE) syringe as directed once a week for use with testosterone Bumetanide 1 mg Tablet TAKE 1 TABLET BY MOUTH ONCE DAILY Doxazosin Mesylate 4 mg Tablet TAKE 1 TABLET BY MOUTH ONCE DAILY Doxepin HCl 10 mg Capsule TAKE 1 TO 2 CAPSULES BY MOUTH EVERY 6 HOURS NEEDED FOR 30 DAYS Doxycycline Monohydrate 100 MG Capsule 1 capsule Orally bid Irbesartan 300 mg Tablet TAKE 1/2 (ONE-HALF) OF A TABLET BY MOUTH ONCE DAILY Ketoconazole 2 % Cream 1 application Externally bid Omeprazole 20 mg Capsule Delayed Release TAKE 1 CAPSULE BY MOUTH TWICE DAILY 30 MINUTES BEFORE morning meal oxyCODONE-Acetaminophen 10-325 MG Tablet TAKE 1 TABLET BY MOUTH EVERY 6 HOURS NEEDED *MUST LAST 30 DAYS* Reglan(Metoclopramide HCl) 10 MG Tablet 1 tablet before meals Orally Twice a day Simvastatin 10 MG Tablet 1 tablet Orally Once a day Tamsulosin HCl 0.4 mg Capsule TAKE 1 CAPSULE BY MOUTH DAILY Testosterone Cypionate 200 mg/mL Solution INJECT 3/4 mls INTRAMUSCULARLY EVERY 2 (TWO) weeks *MUST LAST 30 DAYS* tiZANidine HCl 4 mg Tablet TAKE 2 TABLETS BY MOUTH AT BEDTIME traZODone HCl 150 MG Tablet 1 tablet at bedtime Orally Once a day Triamcinolone Acetonide 0.1 % Cream 1 application Externally Twice a day Taking Adipex-P(Phentermine HCl) 37.5 MG Tablet 1 tablet before breakfast Orally Once a day Taking BD Luer-Meli Syringe(Syringe/Needle (Disp)) 22G X 1-1/2 3 ML Miscellaneous Use 1 (ONE) syringe as directed once a week for use with testosterone Taking Bumetanide 1 mg Tablet TAKE 1 TABLET BY MOUTH ONCE DAILY Taking Doxazosin Mesylate 4 mg Tablet TAKE 1 TABLET BY MOUTH ONCE DAILY Taking Doxepin HCl 10 mg Capsule TAKE 1 TO 2 CAPSULES BY MOUTH EVERY 6 HOURS NEEDED FOR 30 DAYS Taking Doxycycline Monohydrate 100 MG Capsule 1 capsule Orally bid Taking Irbesartan 300 mg Tablet TAKE 1/2 (ONE-HALF) OF A TABLET BY MOUTH ONCE DAILY Taking Ketoconazole 2 % Cream 1 application Externally bid Taking Omeprazole 20 mg Capsule Delayed Release TAKE 1 CAPSULE BY MOUTH TWICE DAILY 30 MINUTES BEFORE morning meal Taking oxyCODONE-Acetaminophen 10-325 MG Tablet TAKE 1 TABLET BY MOUTH EVERY 6 HOURS NEEDED *MUST LAST 30 DAYS* Taking Reglan(Metoclopramide HCl) 10 MG Tablet 1 tablet before meals Orally Twice a day Taking Simvastatin 10 MG Tablet 1 tablet Orally Once a day Taking Tamsulosin HCl 0.4 mg Capsule TAKE 1 CAPSULE BY MOUTH DAILY Taking Testosterone Cypionate 200 mg/mL Solution INJECT 3/4 mls INTRAMUSCULARLY EVERY 2 (TWO) weeks *MUST LAST 30 DAYS* Taking tiZANidine HCl 4 mg Tablet TAKE 2 TABLETS BY MOUTH AT BEDTIME Taking traZODone HCl 150 MG Tablet 1 tablet at bedtime Orally Once a day Taking Triamcinolone Acetonide 0.1 % Cream 1 application Externally Twice a day DiscontinuedlevoFLOXacin 750 MG Tablet 1 tablet Orally Once a day Medication List reviewed and reconciled with the patientDiscontinued levoFLOXacin 750 MG Tablet 1 tablet Orally Once a day Medication List reviewed and reconciled with the patient * Allergies: N .K.D.A.no[Allergies Verified] Objective: * Vitals: W t:271.6lbs, Ht: 69 in, BP:116/80mm Hg, BMI:40.1Index, Ht-cm: 175.26 cm, Wt-k.2 kg. * Examination: P hysical Exam: GENERAL: w ell developed, well nourished, in no acute distress. HEAD: n ormocephalic/atraumatic. EYES: p upils equal, round and reactive to light, conjunctivae and sclerae normal. EARS: n o deformity or lesion of external ear, canals and TM appear normal bilaterally, TM's intact, not inflamed with normal light reflex, hearing grossly normal to conversational speech. NOSE: n o deformity, discharge, inflammation, or lesions.? MOUTH: m ucous membranes moist, normal oropharynx and posterior pharynx without lesions or exudates, tongue normal, dentition normal. NECK: n herman supple, no masses or palpable cervical nodes, trachea midline, thyroid without nodules, masses, tenderness, or enlargement. CHEST: n o chest wall deformity, no chest wall tenderness.? LUNGS: n ormal respiratory effort and clear to auscultation, no wheezes, rales, or rhonchi, good air exchange. CARDIO: r egular rate and rhythm, normal S1 and S2, nor murmur, rub, or gallop. PULSES: n ormal capillary refill. ABDOMEN: s oft, non-distended, non-tender, no masses. MUSCULOSKELETAL: n o deformity or scoliosis noted, normal range of motion, joints normal, no erythema, edema, effusion, or ecchymosis. EXTREMITY: n o clubbing, cyanosis, edema, or deformity with normal ROM in both upper and lower bilateral extremities. NEUROLOGIC: g rossly normal. SKIN: n o rashes, ulcerations, or suspicious lesions. LYMPH NODES: n o cervical adenopathy, nodes normal. MENTAL STATUS: a lert and oriented x3, normal mood and affect. Assessment: * Assessment: 1. S pondylosis without myelopathy or radiculopathy, lumbar region - M47.816 (Primary) ? Plan: * Treatment: * Procedure Codes: * Preventive Medicine: Screenings/Counseling: B LA ACTION PLAN Above Normal BMI Follow-up D ietary management education, guidance, and counseling * * Sign off status: Completed Visit Status: C HK (Check Out) true * Provider: Marisabel Isabel ([facility])MD Date: 0 06/15/2024 Generated for Printi ng/Faxing/eTransmitting on: 0 07/16/2024 08:23 AM EDT History and Physical Notes * Examination Category Sub-Category Detail Notes Category Not es Physical Exam GENERAL: well developed, well nourished, in no acute distress HEAD: normocephalic/atraum atic EYES: pupils equal, round and reactive to light, conjunctivae and sclerae normal EARS: no deformity or lesi on of external ear, canals and TM appear normal bilaterally, TM's intact, not inflamed with normal light reflex, hearing grossly normal to conversational speech NOSE: no deformity, discha rge, inflammation, or lesions MOUTH: mucous membranes steve st, normal oropharynx and posterior pharynx without lesions or exudates, tongue normal, dentition normal NECK: neck supple, no mass es or palpable cervical nodes, trachea midline, thyroid without nodules, masses, tenderness, or enlargement CHEST: no chest wall deform ity, no chest wall tenderness LUNGS: normal respiratory e ffort and clear to auscultation, no wheezes, rales, or rhonchi, good air exchange CARDIO: regular rate and rhy thm, normal S1 and S2, nor murmur, rub, or gallop PULSES: normal capillary ref ill ABDOMEN: soft, non-distended, non-tender, no masses RECTAL: MUSCULOSKELETAL: no deformity or scol iosis noted, normal range of motion, joints normal, no erythema, edema, effusion, or ecchymosis EXTREMITY: no clubbing, cyanosi s, edema, or deformity with normal ROM in both upper and lower bilateral extremities NEUROLOGIC: grossly normal SKIN: no rashes, ulceratio ns, or suspicious lesions LYMPH NODES: no cervical adenopat hy, nodes normal MENTAL STATUS: alert and oriented x 3, normal mood and affect
--- OUTSIDE RECORDS SUMMARY | 2024-06-22 13:45 | XMS_ITS ---
Author Name Auto Generated Organization OHIP Care Team Providers Care Timber Packer Name Role Phone PAYTON HELM Attending Unavailable PAYTON HELM Referring Unavailable PAYTON HELM Attending Unavailable Spenser MURILLO Attending Unavailable Spenser MURILLO Attending Unavailable AHSAN FLYNN Attending Unavailable BLAYNE PACKER Referring Unavailable BLAYNE PACKER Primary Care Unavailable AHSAN FLYNN Attending Unavailable BLAYNE PACKER Referring Unavailable BLAYNE PACKER M Primary Care Unavailable AHSAN FLYNN Attending Unavailable BLAYNE PACKER Referring Unavailable BLAYNE PACKER Primary Care Unavailable PROBLEMS DATE TYPE CONDITION / CODE ATTENDING STATUS [facility] 03/22/2022 Admitting Diagnosis Personal history of other infectious and parasitic diseases / Z86.19(ICD-10) SHENDGE, [facility] 03/22/2022 Admitting Diagnosis Other specified postprocedural states / Z98.890(ICD-10) DANAPolo [facility] 12/27/2021 Admitting Diagnosis Muscle weakness (generalized) / M62.81(ICD-10) DANAPolo [facility] 05/18/2024 Admitting Diagnosis Presence of right artificial knee joint / Z96.651(ICD-10) DANAPolo [facility] 09/28/2021 Unknown Spinal stenosis, lumbar region with neurogenic claudication / M48.062(ICD-10) JACOBY [facility] 08/15/2023 Unknown Back Pain / FREETEXT(AOF) [facility] PROCEDURES No Procedure Records Found RESULTS PATIENT LETTER FT Observed: 06/22/2024 3:27 PM Status: F Source: [facility] Patient [place] [facility] [place] [place], 2024 [place] [address] : 1965 Dear Mr. Sukhdeep Mari, You missed your scheduled appointment on: 06/22/2024. Please note our appointment slots fill quickly. When you fail to cancel or reschedule an appointment the office is unable to fill the appointment slot that was reserved for you. In the future, we ask that you call 24 hours in advance to cancel your appointment. Our current reminder system gives you the opportunity to cancel by responding to our reminder text, phone call or email. You can also call the office to reschedule during normal business hours or use our on-line scheduling portal at your convenience. Our goal is to provide convenient and quality care to all of our patients. We appreciate your consideration regarding any future cancellations. Sincerely, [facility] [address] [address] ext.[phone] PROGRESS Observed: 06/17/2024 3:15 PM Status: COMPLETED Source: [facility] Orthopedic Surgery Subjective Chief complaint: No chief complaint on file. 06/17/24 Patient is a 58-year-old male who returns to see me today for further evaluation of his right revision total knee arthroplasty. Patient has stopped his antibiotics about few weeks ago and had some aching pain in his right knee joint without any major swelling. He is here for further evaluation of his right knee joint as he wants to ensure that there is no further infection. Patient has seen infectious disease team when he had his revision but has not had any follow-up to see them and was not sure whether he should have followed up with them. He was never given an appointment to follow-up with infectious disease team in the past. Patient denies any fever, chills or rigors or any breathlessness. He has been swimming on a regular basis to strengthen his quads and hamstrings as he has weakness in the quadriceps on the right side due to his previous back issues as well, which sometimes aggravates his knee. Patient was seen in April 2024 and was planned for aspiration of the knee joint if he has continued to have issues. Since he does not have any clinical symptoms of infection and knee is not swollen today we will plan to hold this off. Patient does use the brace on occasions but since this. His skin he tries to avoid this. He tends to use his walker most times and rarely uses his wheelchair. 05/18/2024 Patient is a 58-year-old male who presents for evaluation of revision of right knee arthroplasty along with quadriceps weakness. Patient states that approximately 2 months ago he started to notice frequent/intermittent pain and swelling of the right knee with activity such as swelling. He also reports some start up pain with ambulation. Rates the pain as a 6 out of 10 today. He states that he had a CT of the right knee completed at [facility] which we do not have access to today. He denies any recent fevers, chills, rigors, or breathlessness. He states that the right knee is slightly warmer compared to the left but denies significant redness of the knee. Patient states that his primary care provider prescribed him 2 antibiotics which she has been taking since Saturday. 06/22/2022 Sukhdeep Mari is a 58 y.o. year old adult presenting for evaluation of revision of the [...] denies any change in his general health. History Past Surgical History: Procedure Laterality Date ANKLE SURGERY Left JOINT REPLACEMENT Bilateral KIDNEY STONE SURGERY MULTIPLE LUMBAR FUSION STOMACH SURGERY N/A GASTRIC SLEEVE Past Medical History: Diagnosis Date Allergic rhinitis Anemia Anxiety BPH (benign prostatic hyperplasia) CKD (chronic kidney disease) 3 Diabetes ([facility]) GERD (gastroesophageal reflux disease) Hyperlipidemia Hyperparathyroidism Hypertension Kidney stones Lumbar pain OA (osteoarthritis) [...] contraction of the quads but power is consistently about 3-4 out of 5 along with similar power in the left side. Patient also has hamstring power which is 3 out of 5. Weakness in the L3-L4 as well as L4-L5 level noted. Weakness in the foot noted both lower extremities with a EHL power of about 4 out of 5. DTR 1+. Patient has some mild weakness in the left side but is stronger than the right. Patella tracks slightly laterally with no major physical instability noted. Ant and posterior drawer's test positive for mid flexion instability with minimal mediolateral instability. Delphine's is negative. No calf swelling or tenderness noted, bilateral pitting edema noted right side worse than left side. Active extension is -10 degrees in the right knee joint and flexion to about 110- 120 degrees. Passive extension is full on the left side. Passive extension and flexion on the right side is almost full. Trophic changes noted in the luna on both the lower extremities. Imaging personally reviewed: X-rays of the right knee joint 4-5 views were repeated today in the office was seen by myself and interpreted independently which do not show any major change in the overall alignment of the right revision knee arthroplasty and no major effusion noted on the x-rays. There is no loosening of the hardware noted although the previous findings are unchanged. These details were shown and explained to the patient and his family. X-ray of the right knee joint performed in the clinic today demonstrates revision right knee arthroplasty which is well aligned and well-fixed. There is some lucency at the proximal and distal aspects of the femoral and tibial stems respectively. No acute fracture or dislocation. He does have some mild lateral maltracking of the patella which is unchanged compared to previous imaging. X-rays of the right knee joint 3 [...] the patient and his family. Assessment/Plan Sukhdeep Mair is a 58 y.o. year old adult with Status post revision of total knee replacement, right 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 Quadriceps weakness Lumbosacral radiculopathy Patient was again reassured and explained that overall right knee looks good on the x-rays with some unchanged early loosening around femoral and tibial stems. Since he does not have any start of pain we will continue to watch this closely on an annual basis. Due to his previous scarring as well as previous weakness from his lumbosacral radiculopathy and failed back syndrome he may have persistent instability of his right knee joint since his power in the quads and hamstrings is suboptimal persistent weakness in his quads as well as hamstrings and diminished reflexes on the right side. Patient has mid flexion instability of his knee joint which is very minimally changed from his last visit.. Patient presents today secondary to concern for infection in his right knee joint given recent intermittent pain and swelling of the right knee. Clinically the right knee does not appear infected as he does not have significant erythema or significant pain with range of motion of the right knee. He has not had any recent fevers, chills, rigors or other constitutional symptoms. Labs reviewed from outside hospital in February including CBC, CRP, and ESR were within normal limits. Patient will benefit with using brace with the hinges on the right knee joint especially locked in extension if he plans to go for long walks. Patient would benefit continuing his with weight loss program and strength of the lower extremity. Risk and benefits of future need for any revisions of his right knee arthroplasty were discussed as patient had questions. Due to his weakness in the lower extremity muscles he has higher than normal risk for falls and would be best treated with continuation of his range of motion, strengthening, weight loss program. Since he has been feeling better we can hold off as patient feels right knee joint at this point in time to prevent any further recurrence of infection. We will recommend that he continues with his activities and may discontinue his antibiotic. If he starts to get fever or any redness or increased pain out of proportion we can see him earlier for his right knee joint. Patient agrees with treatment plan all questions answered today. All questions were answered today. Patient is happy with the plan. Follow-up in 12 months with repeat x-rays of the right knee joint 4-5 views as he has revision knee arthroplasty. Patient will remember to take oral antibiotics prior to dental work or colonoscopy in future. All questions answered. Dr. Payton Helm MD [facility] Dermatology Nurse orthopedic surgery Adult Reconstruction and Trauma [facility]. FOLLOW-UP Observed: 06/17/2024 3:15 PM Status: COMPLETED Source: [facility] [id number] Suhkdeep Mari 1965 M Date Provider Department Center 06/17/2024 433-PAYTON HELM MP ORTHO MPORTHO Family History Problem Relation Age of Onset Dementia Mother Esophageal cancer Father Alcohol abuse Father Family Status - Relation Status Age at Mother Alive Father Level of Service:27447 [place] OFFICE/OUTPATIENT ESTABLISHED SF MDM 10 MIN LAB Observed: 05/18/2024 2:25 PM Status: COMPLETED Source: [facility] [id number] Sukhdeep Mari [birth year] Date Provider Department Center 05/18/2024 [id number] MP LAB RESOURCE MP DRAW Medical Pavi Family History Problem Relation Age of Onset Dementia Mother Esophageal cancer Father Alcohol abuse Father Family Status - Relation Status Age at Mother Alive Father BASIC METABOLIC PANEL Collected: 2024 2:21 PM Status: UNK Source: [facility] TYPE CODE TESTS RESULT OUT OF RANGE REFERENCE UNITS LAB [id number] SODIUM (MMOL/L) IN SER/PLAS 140 136-145 mmol/L LAB [id number] POTASSIUM (MMOL/L) IN SER/PLAS 4.4 3.5-5.1 mmol/L LAB [id number] CHLORIDE (MMOL/L) IN SER/PLAS 105 98-107 mmol/L LAB [id number] CARBON DIOXIDE, TOTAL (MMOL/L) IN SER/PLAS 27 21-31 mmol/L LAB [id number] UREA NITROGEN (MG/DL) IN SER/PLAS 23 7-25 mg/dL LAB [id number] CREATININE (MG/DL) IN SER/PLAS 1.42 High 0.70-1.30 mg/dL LAB [id number] GLUCOSE (MG/DL) IN SER/PLAS 102 High 70-100 mg/dL LAB [id number] CALCIUM (MG/DL) IN SER/PLAS 9.9 8.6-10.3 mg/dL LAB [id number] ANION GAP IN SER/PLAS 12 7-20 mmol/L LAB 1976006 GLOMERULAR FILTRATION RATE ML/MIN/1.73 SQ M.PREDICTED 56.6 Low >60.0 mL/min/ 1.73m*2 Result Comment: [facility]???s estimated glomerular filtration rate (eGFR) will [...] disproportionately affect any one group of individuals. LAB [id number] UREA NITROGEN/CREA TININE (MASS RATIO) IN SER/PLAS 16.2 NA Performed By: #### [id number] ### # [facility] ([facility]) [address] [place] [address] 159[address] C-REACTIVE PROTEIN Collected: 2:21 PM Status: UNK Source: [facility] TYPE CODE TESTS RESULT OUT OF RANGE REFERENCE UNITS LAB [id number] C REACTIVE PROTEIN (MG/L) IN SER/PLAS <5.4 <=5.0 mg/L Result Comment: Testing perf ormed using a new methodology, turbidimetry. Normal ranges have been updated. Old normal range was <8 mg/L. Performed By: #### [id number] ## ## [facility] ([facility]) [address] [place] [address] SEDIMENTATION RATE Collected: 05/18/2024 2:21 PM Sta tus: UNK Source: [facility] TYPE CODE TESTS RESULT OUT OF RANGE REFERENCE UNITS LAB 1834408 SEDIMENTATION RATE, ERYTHROCYTE 5 <20 mm/hr Performed By: #### [id number] ## ## [facility] ([facility]) [address] [place] [address] CBC WITH AUTO DIFFERENTIAL Collected: 05/18/2024 2:21 PM Status: UNK Source: [facility] TYPE CODE TESTS RESULT OUT OF RANGE REFERENCE UNITS LAB 1233063 LEUKOCYTES(10*3/ UL) IN BLOOD BY AUTOMATED COUNT 8.26 4.00-10.60 10*3/uL LAB [id number] ERYTHROCYTES (10*6/UL) IN BLOOD BY AUTOMATED COUNT 5.23 4.20-5.70 10*6/uL LAB 4554787 HEMOGLOBIN (G/DL) IN BLOOD 16.5 13.0-17.0 g/dL LAB 8648743 HEMATOCRIT (%) IN BLOOD BY AUTOMATED COUNT 47.8 39.0-50.0 % LAB [id number] ERYTHROCYTE MEAN CORPUSCULAR VOLUME (FL) BY AUTOMATED COUNT 91.4 82.0-98.0 fL LAB [id number] ERYTHROCYTE MEAN CORPUSCULAR HEMOGLOBIN (PG) BY AUTOMATED COUNT 31.5 27.0-33.0 pg LAB [id number] ERYTHROCYTE MEAN CORPUSCULAR HEMOGLOBIN CONCENTRATION (G/DL) BY AUTOMATED 34.5 32.0-35.0 g/dL LAB [id number] ERYTHROCYTE DISTRIBUTION WIDTH (RATIO) BY AUTOMATED COUNT 11.9 11.5-15.0 % LAB [id number] NEUTROPHILS/100 LEUKOCYTES IN BLOOD BY AUTOMATED COUNT 67.3 40.0-72.0 % LAB 8791303 LYMPHOCYTES/100 LEUKOCYTES IN BLOOD BY AUTOMATED COUNT 21.8 20.0-45.0 % LAB [id number] MONOCYTES/100 LEUKOCYTES IN BLOOD BY AUTOMATED COUNT 8.0 5.0-12.0 % LAB 4445115 EOSINOPHILS/100 LEUKOCYTES IN BLOOD BY AUTOMATED COUNT 1.8 0.0-6.0 % LAB [id number] BASOPHILS/100 LEUKOCYTES IN BLOOD BY AUTOMATED COUNT 0.7 0.0-1.0 % LAB [id number] NEUTROPHILS (10*3/UL) IN BLOOD BY AUTOMATED COUNT 5.56 1.60-7.60 10*3/uL LAB 9186430 LYMPHOCYTES (10*3/UL) IN BLOOD BY AUTOMATED COUNT 1.80 1.20-4.00 10*3/uL LAB [id number] MONOCYTES (10*3/UL) IN BLOOD BY AUTOMATED COUNT 0.66 0.10-1.00 10*3/uL LAB [id number] EOSINOPHILS (10*3/UL) IN BLOOD BY AUTOMATED COUNT 0.15 0.00-0.50 10*3/uL LAB [id number] BASOPHILS (10*3/UL) IN BLOOD BY AUTOMATED COUNT 0.06 0.00-0.20 10*3/uL LAB [id number] PLATELETS (10*3/UL) IN BLOOD AUTOMATED COUNT 247 150-400 10*3/uL LAB 254 NRBC (PER 100 WBCS) BY AUTOMATED COUNT 0.0 0 % LAB 1767 IMMATURE GRANULOCYTES/100 LEUKOCYTES IN BLOOD BY AUTOMATED COUNT 0.4 0.0-1.0 % LAB 1768 IMMATURE GRANULOCYTES (10*3/UL) IN BLOOD BY AUTOMATED COUNT 0.03 0.00-0.20 10*3/uL Performed By: #### [id number] # ### [facility] ([facility]) [address] [place] [address] PROGRESS Observed: 05/18/2024 1:45 PM Status: COMPLETED Source: [facility] Orthopedic Surgery Subjective Chief complaint: Chief Complaint Patient presents with Right Knee - Pain, Edema Swelling starts 2 months ago, started swimming about a month ago and it only made his knee worse 05/18/2024 Patient is a 58-year-old male who presents for evaluation of revision of right knee arthroplasty along with quadriceps weakness. Patient states that approximately 2 months ago he started to notice frequent/intermittent pain and swelling of the right knee with activity such as swelling. He also reports some start up pain with ambulation. Rates the pain as a 6 out of 10 today. He states that he had a CT of the right knee completed at [facility] which we do not have access to today. He denies any recent fevers, chills, rigors, or breathlessness. He states that the right knee is slightly warmer compared to the left but denies significant redness of the knee. Patient states that his primary care provider prescribed him 2 antibiotics which she has been taking since Saturday. 06/22/2022 Sukhdeep Mari is a 58 y.o. year old male presenting for evaluation [...] denies any change in his general health. History Past Surgical History: Procedure Laterality Date ANKLE SURGERY Left JOINT REPLACEMENT Bilateral KIDNEY STONE SURGERY MULTIPLE LUMBAR FUSION STOMACH SURGERY N/A GASTRIC SLEEVE Past Medical History: Diagnosis Date Allergic rhinitis Anemia Anxiety BPH (benign prostatic hyperplasia) CKD (chronic kidney disease) 3 Diabetes ([facility]) GERD (gastroesophageal reflux disease) Hyperlipidemia Hyperparathyroidism Hypertension Kidney stones Lumbar pain OA (osteoarthritis) Obesity Obstetric pulmonary blood clot embolism, antepartum Sleep apnea Objective General: Body mass index is 39.87 kg/m???. No acute distress, comfortable Respiratory: Unlabored breathing with normal rate, no cough Cardiovascular: Warm well perfused extremities Psych: Appropriate mood behavior Right knee joint was examined in the lower extremity compared with the left side: Scar on the anterior aspect of the right knee joint has healed well no signs of any infection or inflammation seen. Mild effusion noted. Patient has active contraction of [...] instability noted. Ant and posterior drawer's test positive for mid flexion instability with minimal mediolateral instability. Delphine's is negative. No calf swelling or tenderness noted, bilateral pitting edema noted right side worse than left side. Active extension is -10 degrees in the right knee joint and flexion to about 110- 120 degrees. Passive extension is full on the left side. Passive extension and flexion on the right side is almost full. Trophic changes noted in the luna on both the lower extremities. Imaging personally reviewed: X-ray of the right knee joint performed in the clinic today demonstrates revision right knee arthroplasty which is well aligned and well-fixed. There is some lucency at the proximal and distal aspects of the femoral and tibial stems respectively. No acute fracture or dislocation. He does have some mild lateral maltracking of the patella which is unchanged compared to previous imaging. X-rays of the right knee joint 3 [...] the patient and his family. Assessment/Plan Sukhdeep Mari is a 58 y.o. year old male with Status post revision of total knee replacement, right 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 Quadriceps weakness Patient was explained that overall right knee looks good on the x-rays with some early loosening around femoral and tibial stems. Due to his previous scarring as well as previous weakness from his lumbosacral radiculopathy and failed back syndrome he may have persistent instability of his right knee joint since his power in the quads and hamstrings is suboptimal persistent weakness in his quads as well as hamstrings and diminished reflexes on the right side. Patient has mid flexion instability of his knee joint which is very minimally changed from his last visit.. Patient presents today secondary to concern for infection in his right knee joint given recent intermittent pain and swelling of the right knee. Clinically the right knee does not appear infected as he does not have significant erythema or significant pain with range of motion of the right knee. He has not had any recent fevers, chills, rigors or other constitutional symptoms. Labs reviewed from outside hospital in February including CBC, CRP, and ESR were within normal limits. Patient will benefit with using brace with the hinges on the right knee joint especially locked in extension if he plans to go for long walks. Patient would benefit continuing his with weight loss program and strength of the lower extremity. He should complete course of antibiotics prescribed from his PCP. Risk and benefits of future need for any revisions of his right knee arthroplasty were discussed as patient had questions. Due to his weakness in the lower extremity muscles he has higher than normal risk for falls and would be best treated with continuation of his range of motion, strengthening, weight loss program. We will obtain basic labs for infection workup and patient will return to clinic 2 weeks following completion of antibiotics. We can plan for aspiration of his right knee joint depending on his presentation in 4 weeks time. If he has been feeling better we can hold off this in future. All questions were answered today. Patient is happy with the plan. Follow-up in 4 weeks. Moisés Shaikh MD Orthopaedic Surgery, Resident 05/18/24 2:56 PM By using the attestations below, the [...] documentation from me. Dr. Payton Helm [facility] Nurse orthopedic surgery Adult Reconstruction and Trauma [facility]. FOLLOW-UP Observed: 05/18/2024 1:45 PM Status: COMPLETED Source: [facility] [id number] Sukhdeep Mari Darrel 1965 M Date Provider Department Center 05/18/2024 433-PAYTON HELM ORTHO MPORTHO Family History Problem Relation Age of Onset Dementia Mother Esophageal cancer Father Alcohol abuse Father Family Status - Relation Status Age at Mother Alive Father Level of Service:85608 [place] OFFICE/OUTPATIENT ESTABLISHED MOD MDM 30 MIN () Reason for Visit and Comments: Pain [136] - Swelling starts 2 months ago, started swimming about a month ago and it only made his knee worse Edema [[id number]] - Swelling starts 2 months ago, started swimming about a month ago and it only made his knee worse 36 Observed: 05/18/2024 10:37 AM Status: COMPLETED Source: [facility] Will need to see the patient as soon as possible repeat x-rays and blood test to further evaluate as he has had previous infections and has high risk for recurrent infections and 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 PT WILL COME IN TODAY 36 Observed: 05/15/2024 3:53 PM Status: COMPLETED Source: [facility] Patient feels like his infec tion is back. Right knee swelling and pain but no fever. He was seen by Dr. Packer and he put him on oral antibiotics and wanted Dr. Helm know in case he wants him to come in and be exam. CNPN Observed: 10/07/2023 12:00 AM Status: COMPLETED Source: [facility] Telephone ([facility]) SUKHDEEP MARI ([id number]) 1965 M Date Time Provider Department 10/07/23 EDD MATHEW [facility] During your visit today, we recorded the following information about you: Arianna Little 10/07/2023 3:28 PM Signed Pt phoned to ensure todays appt was via phone as noted in appt. Pt unable to manage computer. 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] 12/09/2013 12/07/2022 Corneal edema, unspecified [H18.20] 12/10/2013 12/07/2022 Anxiety [F41.9] 12/27/2021 Diagnosed: 11/21/2022 Essential hypertension [I10] 02/02/2020 Diagnosed: 11/21/2022 Essential tremor [G25.0] 11/21/2022 Diagnosed: 11/21/2022 Gastroesophageal reflux disease [K21.9] 12/27/2021 Diagnosed: 11/21/2022 History of pulmonary embolism [Z86.711] 01/05/2022 Diagnosed: 11/21/2022 Morbid obesity (HCC) [E66.01] 12/27/2021 Diagnosed: 11/21/2022 ELIDA (obstructive sleep apnea) [G47.33] 12/27/2021 Diagnosed: 11/21/2022 Secondary hyperparathyroidism (HCC) [N25.81] 11/21/2022 11/21/2022 Diagnosed: 11/21/2022 Type 2 diabetes mellitus without complications *02/02/2020 Diagnosed: 11/21/2022 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 Status post lumbar spinal fusion [Z98.1] 12/07/2022 Stage 3 chronic kidney disease (HCC) [N18.30] 12/07/2022 Diagnosed: 12/07/2022 CIRO (iron deficiency anemia) [D50.9] 12/07/2022 HLD (hyperlipidemia) [E78.5] 12/07/2022 BPH (benign prostatic hyperplasia) [N40.0] 12/07/2022 Obesity, Class III, BMI >= 40 [E66.813] 12/08/2022 Encounter Status:Closed by ARIANNA MUHAMMAD on 06/25/24 CNPN Observed: 10/04/2023 12:00 AM Status: COMPLETED Source: [facility] Telephone ([employer]) SUKHDEEP MARI ([id number]) 1965 M Date Time Provider Department 10/04/23 EDD MATHEW JRapidMobilisafe During your visit today, we recorded the [...] [E66.01] 12/08/2022 Encounter Status:Closed by JUAN PABLO FIELD on 10/04/23 CNPN Observed: 07/30/2023 12:00 AM Status: COMPLETED Source: [facility] Telephone ([employer]) SUKHDEEP MARI ([id number]) 1965 M Date Time Provider Department 07/30/23 EDD MATHEW NEADFV During your visit today, we recorded the following information about you: Arianna Little 07/30/2023 11:51 AM Signed Pt phoned regarding upcoming visit 10/06 Prediculous appt. Pt unable to manage virtual visit asking for telephone visit. Pt asking how far in advance to do X-Ray. Pt will have X-Ray done locally at [facility]. Please call and advise Pt phone # [phone] Ekaterina Rondon 07/30/2023 1:07 PM Signed Have sent XR Lumbar order to [facility] fax # [phone] as requested from patient. Riddhi Goss APRN.[facility] 07/30/2023 3:25 PM Signed Called Sukhdeep, no [...] Encounter Status:Closed by RIDDHI GOSS on 07/30/23 HARIKA Observed: 07/23/2023 12:00 AM Status: COMPLETED Source: [facility] Telephone (NIQ) SUKHDEEP MARI ([id number]) 1965 M Date Time Provider Department 07/23/23 EDD MATHEW During your visit today, we recorded the following information about you: Brenda Alex 07/23/2023 9:38 AM Signed Received request from [employer] needing more info, in [place] for review. Juan Pablo Field RN 07/23/2023 10:08 AM Signed Printed for review. Juan Pablo Field RN 07/26/2023 10:57 AM Signed Office note [...] [E66.01] 12/08/2022 Encounter Status:Closed by JUAN PABLO FIELD on 07/26/23 ALLERGIES DATE TYPE / CODE NAME / CODE REACTION SEVERITY SOURCE 03/16/2021 DRUG INGREDI~NON-CBO RD/[id number](SN OMED CT) LORATADINE [facility] 06/22/2020 DRUG INGREDI~NON-CBO RD/[id number](SN OMED CT) CHLORHEXIDINE [facility] 10/08/2018 DRUG INGREDI~Food/41 [id number](SNOMED CT) IODINE Rash [facility] 09/26/2018 DRUG INGREDI~NON-CBO RD/[id number](SN OMED CT) POVIDONE-IODINE Rash [facility] [place]/631436 006(SNOMED CT) NO KNOWN ALLERGIES [facility] /[id number](SN OMED CT) loratadine rash hives [facility] /[id number](SN OMED CT) Betadine SK7513-5 [facility] /[id number](SN OMED CT) No Known Allergies [facility] ENCOUNTERS ADMIT/DISCHARGE ACCOUNT NUMBER ADMITTING ENCOUNTER CLASS LOCATION SOURCE 06/22/2024/ 5 [id number] Ambulatory [place]EL[place] [facility] 06/17/2024/ 5 [id number] Ambulatory Buildin 0 [facility] 05/18/2024 [id number] Ambulatory Building:MP DRAW [facility] 05/18/2024/ 5 [id number] Ambulatory Buildin 0 [facility] 05/18/2024/ 5 [id number] Ambulatory Buildin [id number] [facility] 02/13/2024/ 4 [id number] [facility] 4 [id number] Ambulatory EU [place]:MELANI [facility] 12/05/2023/ 4 [id number] [facility]15/2023/ 4 [id number] [facility]/08/2020 [id number] [place]ulatory [place] [facility] PAYERS ENCOUNTER GUARANTOR PAYER SUBSCRIBER SOURCE 06/22/2024 SUKHDEEP Rojo ADRIANSDOB: SANDHYA RIDLEYTel: ~~(4 1 (HP) Primary Insurance:[facility] BenefitsPolicy Number: [id number] Date:1007-30-01OC MAYRA [id number] [place] [address]QZ: JOSESITO CAMPBELLNICKYCharla [facility] 06/17/2024 Primary Insurance:WITTER HEALTHCAREPolicy Number: [id number] Date:2022-02-25 JOSESITO CAMPBELLIGNACIAOB: [id number] [place] [address] [facility] 05/18/2024 Primary Insurance:WITTER [employer]Policy Number: [id number] Date:2022-02-25 JOSESITO CARINOB: [id number] [place] [address] [facility] 05/18/2024 Primary Insurance:[employer] HEALTHCAREPolicy Number: [id number] Date:2022-02-25 JOSESITO CARINOB: [id number] [place] [address] [facility] 05/18/2024 Primary Insurance:Room[employer]Policy Number: [id number] Date:2022-02-25 JOSESITO CARINOB: [id number] [place] [address] [facility] 02/13/2024 SUKHDEEP CAMPBELLSDOB: [place], [place] [address]Oqy: (HP) Primary Insurance:[facility]Policy Number: [id number] Date:2019-04-10 SUKHDEEP CAMPBELLSDOB: [id number] [place], [place] [address]Tay: (HP) (WP) [facility] 02/03/2024 SUKHDEEP CAMPBELLSDOB: LAWIKT RIDLEYTel: ~~(4 1 (HP) Primary Insurance:[employer] BenefitsPolicy Number: [id number] Date:9007-01-51[address] [address], [place] [address]QR: JOSESITO M [facility] 12/05/20[address] CAMPBELLSDOB: [address] [place], [place] [address]Itb: (HP) Primary Insurance:[employer] [facility]Policy Number: [id number] Date:2019-04-10 SUKHDEEP CAMPBELLSDOB: [id number] [place], [place] [address]Obs: (HP) (WP) [facility] 08/15/2023 SUKHDEEP CAMPBELLSDOB: [place], [place] [address]Olb: (HP) Primary Insurance:[employer] [facility]ITALPolicy Number: [id number] Date:2019-04-10 SUKHDEEP CAMPBELLSDOB: [id number] [place], [place] [address]Mhr: (HP) (WP) [facility] 02/08/2020 SUKHDEEP CAMPBELLSDOB: [place] RIDLEYTel: (HP) Primary Insurance:AETNAPolicy Number: [id number] Date:8038-03-47[address], [place] [address]GH: SUKHDEEP Rojo [facility]
--- OUTSIDE RECORDS SUMMARY | 2024-07-15 07:15 | XMS_ITS ---
Author Organization [facility] [place] Address [address] [place] [place] [address] Care Team Providers Care Wagon Driller Name Role Phone ABELARDO ISABEL MD Primary Care Provider Abelardo Isabel Unavailable [phone] Allergies No Known Allergies REASON FOR VISIT diet check- Adipex Medications Medication SIG (Take, Route, Frequency, Duration) Notes Start Date End Date Status traZODone HCl 150 MG 1 tablet at bedtime Orally Once a day for 30 days Active Triamcinolone Acetonide 0.1 % 1 application Externally Twice a day for 30 07/31/2023 Active Testosterone Cypionate 200 mg/mL INJECT 3/4 mls INTRAMUSCULARLY EVERY 2 (TWO) weeks *MUST LAST 30 DAYS* for 30 02/25/2024 Active tiZANidine HCl 4 mg TAKE 2 TABLETS BY MO [facility] AT BEDTIME for 30 Active Tamsulosin HCl 0.4 mg TAKE 1 CAPSULE BY MOUTH DAILY for 30 Active Omeprazole 20 mg TAKE 1 CAPSULE BY MO [facility] TWICE DAILY 30 MINUTES BEFORE morning meal for 30 Activ e Ketoconazole 2 % 1 application Body Hanger ally bid for 14 days 04/03/2024 Active Simvastatin 10 mg TAKE 1 TABLET BY JUAN CARLOS ONCE DAILY for 90 Active oxyCODONE-Acetaminophen 10-325 MG TAKE 1 TABLET BY MOUTH EVERY 6 HOURS NEEDED *MUST LAST 30 DAYS* for 30 07/01/2024 Activ e Reglan 10 MG 1 tablet before meal s Orally Twice a day for 90 days Active Irbesartan 300 mg TAKE 1/2 (ONE-HALF) OF A TABLET BY MOUTH ONCE DAILY for 60 Active Phentermine HCl 37.5 MG 1 capsule Orally Once a day 07/15/2024 Active Doxepin HCl 10 mg TAKE 1 TO 2 CAPSULES BY MOUTH EVERY 6 HOURS NEEDED FOR 30 DAYS for 30 Active Doxycycline Monohydrate 100 MG 1 capsule Orally bid for 10 days 05/15/2024 Active Doxazosin Mesylate 4 mg TAKE 1 TABLET BY MOUTH ONCE DAILY for 30 Active Entresto 24-26 MG 1 tablet Orally Twic e a day for 30 day(s) 07/15/2024 Active Bumetanide 1 mg TAKE 1 TABLET BY JUAN CARLOS TH ONCE DAILY for 30 Active Adipex-P 37.5 MG 1 tablet before lo kfast Orally Once a day 06/15/2024 Active BD Luer-Meli Syringe 22G X 1-1/2 3 ML Use 1 (ONE) syringe as directed once a week for use with testosterone for 90 Active Social History Tobacco Use: Social History Observation Description Date Details (start date - stop date) Never Smoker NA - NA Tobacco Use/Smoking Question Answer Notes Patient is a nonsmoker Problems Problem Type SNOMED Code ICD Code Onset Dates Problem Status W/U Status Risk Notes Problem Hypertension (26825763) Hypertension (I10) Active confirmed Problem Edema (R60.9) Active confirmed Vital Signs Blood pressure systolic 142 mm Hg 07/16/19 25 Blood pressure diastolic 92 mm Hg 025 Height 69 in 07/15/2024 Weight 272.0 lbs 07/15/2024 BMI 40.16 kg/m2 07/15/2024 Encounters Encounter Location Date Provider Diagnosis [facility] [address] [place] [address] 07/15/2024 Abelardo Hoy Edema R60.9 and Hypertension I10 Assessments Encounter Date Diagnosis (ICD Code) Assessment Notes Treatment Notes Treatment Clinical Notes Section Notes 07/15/2024 Edema (ICD-10 - R60.9) 07/15/2024 Hypertension (ICD-10 - I10) Plan Of Treatment Medication Medication Name Sig Start Date Stop Date Notes Phentermine HCl 37.5 MG 1 capsule Orally Once a day 2024 Entresto 24-26 MG 1 tablet Orally Twic e a day for 30 day(s) 07/15/2024 Pending Test Test Name Order Date BNP 07/15/2024 PROF 14(COMP METB) 07/15/2024 Progress Notes * Aldo SIMENTALDOB:1965 (4 0 yo M)Acc No.[id number]:07/15/2024 UNLOCKED PROGRESS NOTE Progress Note Patient: Aldo DIXON Provider: Marisabel Isabel ([facility])MD :1965 A ge:58 Y S ex:Male Date:07/15/2024 Address:[address] [place] [address] [facility], [id number] Pcp:ABELARDO ISABEL MD Check In:11:23 AM ESTCheck O ut:12:11 PM EST Subjective: * Chief Complaints: * 1 . diet check- Adipex. * ROS: E ENT: hearing changes d [...] enies. S wollen joints d enies. * Medical History: B enign essential tremor, Arthritis, Hypogonadism male, DDD (degenerative disc disease), lumbosacral, Acute pulmonary embolism, Bilateral kidney stones, Apnea, sleep. * Surgical History: g astric sleeve 05/16, ankle surgery 05/2014, knee surgery 04/19, Lumbar and sacral fusion 12/07/22. * Hospitalization/Major Diagno stic Procedure: s ee above . * Family History: F ather: 67 yrs, diagnosed with Other malignant neoplasm of unspecified site. M other: alive. B meenuer(s): alive. D luis carlos(s): alive. 2 brother(s) - healthy. 1 daughter(s) - healthy. . * Social History: T obacco Use: T obacco Use/Smoking P atient is a n onsmoker * Medications: T aking Adipex-P(Phentermine HCl) 37.5 MG Tablet 1 tablet before breakfast Orally Once a day , Taking BD Luer-Meli Syringe(Syringe/Needle (Disp)) 22G X 1-1/2 3 ML Miscellaneous Use 1 (ONE) syringe as directed once a week for use with testosterone , Taking Bumetanide 1 mg Tablet TAKE 1 TABLET BY MOUTH ONCE DAILY , Taking Doxazosin Mesylate 4 mg Tablet TAKE 1 TABLET BY MOUTH ONCE DAILY , Taking Doxepin HCl 10 mg Capsule TAKE 1 TO 2 CAPSULES BY MOUTH EVERY 6 HOURS NEEDED FOR 30 DAYS , Taking Doxycycline Monohydrate 100 MG Capsule 1 capsule Orally bid , Taking Irbesartan 300 mg Tablet TAKE 1/2 (ONE-HALF) OF A TABLET BY MOUTH ONCE DAILY , Taking Ketoconazole 2 % Cream 1 application Externally bid , Taking Omeprazole 20 mg Capsule Delayed Release TAKE 1 CAPSULE BY MOUTH TWICE DAILY 30 MINUTES BEFORE morning meal , Taking oxyCODONE-Acetaminophen 10-325 MG Tablet TAKE 1 TABLET BY MOUTH EVERY 6 HOURS NEEDED *MUST LAST 30 DAYS* , Taking Reglan(Metoclopramide HCl) 10 MG Tablet 1 tablet before meals Orally Twice a day , Taking Simvastatin 10 mg Tablet TAKE 1 TABLET BY MOUTH ONCE DAILY , Taking Tamsulosin HCl 0.4 mg Capsule TAKE 1 CAPSULE BY MOUTH DAILY , Taking Testosterone Cypionate 200 mg/mL Solution INJECT 3/4 mls INTRAMUSCULARLY EVERY 2 (TWO) weeks *MUST LAST 30 DAYS* , Taking tiZANidine HCl 4 mg Tablet TAKE 2 TABLETS BY MOUTH AT BEDTIME , Taking traZODone HCl 150 MG Tablet 1 tablet at bedtime Orally Once a day , Taking Triamcinolone Acetonide 0.1 % Cream 1 application Externally Twice a day , Medication List reviewed and reconciled with the patient * Allergies: N .K.D.A. Objective: * Vitals: W t:272.0lbs, Ht: 69 in, BP:142/92mm Hg, BMI:40.16Index, Ht-cm: 175.26 cm, Wt-k.38 kg. * Examination: P hysical Exam: GENERAL: [...] mood and affect. Assessment: * Assessment: 1. E margarito - R60.9 (Primary) 2 . H ypertension - I10 Plan: * Treatment: * Preventive Medicine: Screenings/Counseling: B IA ACTION PLAN Above Normal BMI Follow-up D ietary management education, guidance, and counseling * * Electronic signature of Abelardo Isabel MD, [id number] on 07/16/2024 at 08:22 AM EDT Sign off status: Pending Visit Status: C HK (Check Out) * Provider: Marisabel Isabel ([facility])MD Date: 07/15/2024 Generated for Printi ng/Faxing/eTransmitting on: 07/16/2024 08:22 AM EDT History and Physical Notes * [...]
--- NOTE | 2024-07-16 | XR_ITS ---
The [address] [address] Patient Name: SUKHDEEP SIMENTAL MRN: [id number] date: 1965 Sex: M Assigned Patient Location: US Current Patient Location: US Accession/Order Number: [id number] Exam Date: 07/16/2024 10:07 Report Date: 07/16/2024 10:13 At the request of: CECELIA MURILLO MD Procedure: XR abdomen 1V SINGLE VIEW ABDOMEN CLINICAL DATA: Follow-up of kidney stones COMPARISON: Ultrasound 07/16/2024 and lumbar plain films 10/01/2023 Erect views of the abdomen and pelvis were obtained. There is air and stool in the colon. There is also small bowel air without disproportionate distention. No free air or significant fluid levels are noted. No soft tissue masses are identified. On one of the images, there is question of a subtle 8 mm stone at the lower pole of the right kidney. No other suspect renal calculi are seen. There is slight dextroscoliotic curvature. Postoperative changes are present at the spine. XR/XR abdomen 1V IMPRESSION: NONSPECIFIC BOWEL GAS PATTERN. POTENTIAL RIGHT NEPHROLITHIASIS. Impression dictated by: Erlinda Sadler M.D. 07/16/2024 10:13 AM Dictation Location: [place] [address] Electronically authenticated by: [id number] Y Date: 07/16/2024 10:13
--- NOTE | 2024-07-16 | US_ITS ---
The [address] [address] Patient Name: SUKHDEEP SIMENTAL MRN: [id number] date: 1965 Sex: M Assigned Patient Location: US Current Patient Location: US Accession/Order Number: [id number] Exam Date: 07/16/2024 10:03 Report Date: 07/16/2024 10:07 At the request of: CECELIA MURILLO MD Procedure: US renal BI BILATERAL RENAL AND BLADDER ULTRASOUND CLINICAL HISTORY: N28.89 Other specified disorders of kidney and ureter. Kidney stones. COMPARISON: CT 02/01/2023 Estimation of renal size is approximately 7.6 cm on the right and 11.2 cm on the left. No hydronephrosis is identified. At least one suspected renal stone is present at the lower pole of the right kidney measuring up to 8 mm in size. There is also a cyst at the inferior pole on that side measuring 3.1 x 3.0 x 3.0 cm . There is no perinephric fluid. The urinary bladder is partially distended with a volume of 65 mL No obvious contour or intraluminal abnormalities are seen. US/US renal BI IMPRESSION: RIGHT RENAL CYST AND NEPHROLITHIASIS. NO OBSTRUCTIVE UROPATHY. Impression dictated by: Erlinda Sadler M.D. 07/16/2024 10:07 AM Dictation Location: [place] [address] Electronically authenticated by: [id number] Y Date: 07/16/2024 10:07
--- OUTSIDE RECORDS SUMMARY | 2024-07-16 08:22 | XMS_ITS | Encounter Summary ---
Author Organization [facility] tem Address [id number] [address] [place] [address] Care Team Providers Care Chemical Process Project Engineer Name Role Phone Derick Packer MD Primary Care Provider [phone] Encounter Details Date Type Department Care Team (Late st Contact Info) Description 04/03/2022 Telephone [facility] [address] [place] [id number] Cherelle Oleary RN Social History Tobacco Use Types Packs/Day Years Used Date Smoking Tobacco: Never Smokeless Tobacco: Never Alcohol Use Standard Drinks/Week Comments Not Currently 0 (1 standard drink = 0.6 oz pur e alcohol) AUDIT-C Answer Date Recorded Frequency of Alcohol Consumption Never 10/08/2018 Average Number of Drinks Not on file 019 Frequency of Binge Drinking Not on file 09/25 Childcare Answer Date Recorded Childcare Unknown 08/06/2018 Employment Answer Date Recorded Employment Unknown 08/06/2018 Purpose - Life Answer Date Recorded Purpose and direction in life Unknown Sex and Gender Information Value Date Recorded Sex Assigned at Not on file Legal Sex Male 11:40 AM EDT Gender Identity Not on file Sexual Orientation Not on file documented as of this encounter Miscellaneous Notes * Telephone Encounter - Cherelle Oleary RN - 04/03/2022 8:56 AM EST Call returned to patient after speaking with Nadiya Landrum confirmed that since patient was seen in the office 01/2022 he may call office in April 2022 to have [facility] forms completed as needed. documented in this encounter Plan of Treatment Not on file documented as of this encounter Visit Diagnoses Not on filedocumented in this encounter Care Teams Chemical Process Project Engineer Relationship Specialty Start Date End Date Derick Packer MD PCP - General Family Medicine 10/08/18 documented as of this encounter
--- OUTSIDE RECORDS SUMMARY | 2024-07-16 08:22 | XMS_ITS | Clinical Summary ---
Author Organization [facility] tem Address [id number] [address] [place] [address] Care Team Providers Care Chef & Owner Name Role Phone Derick Packer MD Primary Care Provider [phone] Allergies Active Allergy Reactions Criticality Noted Date Comments Chlorhexidine Low 06/22/2020 Red discoloration for one hour x5 years ago Iodine Rash Low 10/08/2018 Topical iodine-no dye per pain clinic Loratadine 03/16/2021 Other reaction(s): rash hives Povidone-Iodine Rash Low 09/26/2018 Other reaction(s): rash, redness Medications metFORMIN (GLUCOPHAGE) 500 mg tablet Take 1 tablet by mouth in the morning and 1 tablet before bedtime. Active pioglitazone (ACTOS) 15 mg tablet Take 2 tablets (30 mg total) by mouth in the morning. Active dapagliflozin (FARXIGA) 5 mg tablet Take 1 tablet (5 mg total) by mouth in the morning. Active amLODIPine (NORVASC) 10 mg tablet Take 10 mg by mouth daily. Active irbesartan (AVAPRO) 300 mg tablet Take 1 tablet (300 mg total) by mouth nightly. Active carvedilol (COREG) 25 mg tablet Take 25 mg by mouth in the morning and 25 mg in the evening. Take with meals. Active amitriptyline (ELAVIL) 50 mg tablet Take 50 mg by mouth nightly. Active cetirizine (ZyrTEC) 10 mg tablet Take 10 mg by mouth in the morning. Active simvastatin (ZOCOR) 10 mg tablet Take 1 tablet (10 mg total) by mouth nightly. Active levomilnacipran (FETZIMA) 40 mg capsule,extended release 24 hr Take 40 mg by mouth in the morning. Active indomethacin (INDOCIN) 50 mg capsule Take 50 mg by mouth in the morning and 50 mg at noon and 50 mg in the evening. Take with meals. Active dulaglutide 0.75 mg/0.5 mL pen injector Inject 0.75 mg under the skin every 7 days. On Mondays Active cyclobenzaprine (FLEXERIL) 10 mg tablet Take 20 mg by mouth nightly. 11 09/30/19 19 Active diclofenac (VOLTAREN) 75 mg EC tablet Take 75 mg by mouth in the morning and 75 mg before bedtime. 11 09/10/19 19 Active diphenoxylate-atro pine (LOMOTIL) 2.5-0.025 mg per tablet Take 1 tablet by mouth 3 (three) times a day. 0 09/13/19 19 Active ondansetron ODT (ZOFRAN-ODT) 4 mg disintegrating tablet Dissolve 1 tablet on tongue as needed. 0 09/30/19 19 Active tiZANidine (ZANAFLEX) 4 mg tablet Take 2 tablets (8 mg total) by mouth nightly. 0 08/22/19 19 Active doxazosin (CARDURA) 4 mg tablet Take 1 tablet (4 mg total) by mouth in the morning. 02/16/20 21 Active glimepiride (AMARYL) 4 mg tablet Take 4 mg by mouth daily. 02/16/20 21 Active oxaprozin (DAYPRO ORAL) Active pregabalin (LYRICA) 100 mg capsule Take 1 capsule (100 mg total) by mouth in the morning and 1 capsule (100 mg total) before bedtime. 12/08/19 21 Active testosterone cypionate (DEPOTESTOTERONE CYPIONATE) 100 mg/mL injection testosterone cypionate 100 mg/mL intramuscular oil INJECT 1.5 ML INTO THE MUSCLE EVERY 2 WEEKS DIRECTED 05/06/19 21 Active albuterol (PROVENTIL HFA;VENTOLIN HFA) 90 mcg/actuation inhaler INHALE 2 PUFFS BY MOUTH FOUR TIMES DAILY NEEDED (practice 2 (TWO) puffs 30 MINUTES prior) 01/08/20 21 Active SYMBICORT 160-4.5 mcg/actuation inhaler Inhale 2 puffs 2 (two) times a day. 01/02/20 Active ergocalciferol (DRISDOL) 1,250 mcg (50,000 unit) capsule Take 50,000 Units by mouth. 01/06/20 Active spironolactone (ALDACTONE) 100 mg tablet Take 1 tablet (100 mg total) by mouth in the morning. 01/02/20 Active tamsulosin (FLOMAX) 0.4 mg capsule Take 1 capsule (0.4 mg total) by mouth in the morning. 03/03/19 Active temazepam (RESTORIL) 15 mg capsule Take 15 mg by mouth nightly as needed. 01/13/20 Active phentermine (ADIPEX-P) 37.5 mg tablet Active traZODone (DESYREL) 50 mg tablet Take 3 tablets (150 mg total) by mouth nightly. 04/17/19 Active pantoprazole (PROTONIX) 40 mg EC tablet Take 1 tablet (40 mg total) by mouth in the morning. Active apixaban (ELIQUIS) 5 mg tablet Eliquis 5 mg tablet TAKE 2 TABLETS BY MOUTH TWICE DAILY FOR 3 DAYS, then TAKE 1 TABLET BY MOUTH TWICE DAILY Active famotidine (PEPCID) 20 mg tablet Take 20 mg by mouth nightly. 11/08/19 Active bumetanide (BUMEX) 1 mg tablet Take 1 tablet (1 mg total) by mouth daily. 11/08/19 Active sucralfate (CARAFATE) 1 gram tablet Take 1 tablet (1 g total) by mouth in the morning and 1 tablet (1 g total) at noon and 1 tablet (1 g total) in the evening and 1 tablet (1 g total) before bedtime. 10/09/19 Active FeroSuL 325 mg (65 mg iron) tablet Take 1 tablet (325 mg total) by mouth in the morning and 1 tablet (325 mg total) before bedtime. 11/08/19 Active acetaminophen (TYLENOL EXTRA STRENGTH) 500 mg tablet TAKE TWO TABLETS BY MOUTH EVERY 8 HOURS 01/03/20 Active HYDROcodone-acetam inophen (NORCO) 5-325 mg per tablet Take 1 tablet by mouth 4 (four) times a day as needed. 11/11/19 Active LORazepam (ATIVAN) 1 mg tablet Take 1 tablet (1 mg total) by mouth every 6 (six) hours as needed. Active omeprazole (PriLOSEC) 20 mg capsule Take 1 capsule (20 mg total) by mouth in the morning and 1 capsule (20 mg total) before bedtime. 01/17/20 22 Active doxycycline (VIBRAMYCIN) 100 mg capsule Take 1 capsule (100 mg total) by mouth in the morning and 1 capsule (100 mg total) before bedtime. Active metoclopramide (REGLAN) 10 mg tablet TAKE 1 TABLET BY MOUTH TWICE DAILY (AT SUPPER & AT BEDTIME) 08/02/19 23 Active doxepin (SINEquan) 10 mg capsule Take 1 capsule (10 mg total) by mouth in the morning. 11/30/19 23 Active oxyCODONE-acetamin ophen (PERCOCET) 10-325 mg per tablet Take 1 tablet by mouth every 6 (six) hours as needed for pain. 08/07/19 24 Active cholecalciferol, vitamin D3, 5,000 units tablet Take 1 tablet (5,000 Units total) by mouth in the morning. Active Active Problems Problem Noted Date Diagnosed Date Spinal stenosis, lumbar yohan on, with neurogenic claudication 08/17/2021 Overview (08/17/2021): Added automatically from request for surgery [id number] Degeneration of lumbosacral intervertebral disc 03/28/2021 Overview (03/28/2021): Added automatically from request for surgery [id number] Other specified inflammatory spondylopathies, candi mbar region 03/28/2021 Overview (03/28/2021): Added automatically from request for surgery [id number] Family History Medical History Relation Name Comments Cancer Father jaw No Known Problems Mother Relation Name Status Comments Father Mother Alive Social History Tobacco Use Types Packs/Day Years Used Date Smoking Tobacco: Never Smokeless Tobacco: Never Tobacco Cessation:Counseling Given: Not Answered Alcohol Use Standard Drinks/Week Comments Not Currently 0 (1 standard drink = 0.6 oz pur e alcohol) AUDIT-C Answer Date Recorded Frequency of Alcohol Consumption Never 10/08/2018 Average Number of Drinks Not on file 019 Frequency of Binge Drinking Not on file 09/25 Childcare Answer Date Recorded Childcare Unknown 08/06/2018 Employment Answer Date Recorded Employment Unknown 08/06/2018 Hunger Screening Answer Date Recorded Within the past 12 months we worried whether our food would run out before we got money to buy more. Never True 12/05/2023 Within the past 12 months th e food we bought just didn't last and we didn't have money to get more. Never True 12/05/2023 Purpose - Life Answer Date Recorded Purpose and direction in life Unknown Sex and Gender Information Value Date Recorded Sex Assigned at Not on file Legal Sex Male 11:40 AM EDT Gender Identity Not on file Sexual Orientation Not on file Last Filed Vital Signs Vital Sign Reading Time Taken Comments Blood Pressure 150/100 02/13/2024 11:22 AM EST Pulse 92 02/13/2024 11:22 AM EST Temperature 37.1 C (98.7 F) 10/27/2021 7:28 AM EDT Respiratory Rate 18 02/13/2024 11:22 AM EST Oxygen Saturation 95% 12/05/2023 10:05 AM EDT Inhaled Oxygen Concentration - - Weight 119.7 kg (264 lb) 02/13/2024 11:22 AM EST Height 175.3 cm (5' 9 ) 12/05/2023 10:05 AM EDT Body Mass Index 38.99 12/05/2023 10:05 AM EDT Plan of Treatment Health Maintenance Due Date Last Done Comments Depression Screening 1977 Adult BMI Follow Up Plan 09/10/1981 DTaP,Tdap and Td Vaccines (1 - Tdap) 09/10/1982 Zoster (Shingles) Vaccine (1 of 2) 09/10/2013 Influenza Vaccine 10/26/2024 Adult BMI Screening 02/12/2025 02/13/2024 Tobacco Screening 02/12/2025 02/13/2024 Medical Devices Not on file Insurance [facility] [employer] Care Teams Chef & Owner Relationship Specialty Start Date End Date Derick Packer MD PCP - General Family Medicine 10/08/18
--- OUTSIDE RECORDS SUMMARY | 2024-07-16 08:22 | XMS_ITS | Clinical Summary ---
Author Organization [facility] Address [address] [place] [id number] Care Team Providers Care Retail Customer Service Specialist Name Role Phone Derick Packer MD Primary Care Provider [phone] Allergies No known active allergies Medications doxazosin (CARDURA) 4 mg tablet Take 4 mg by mouth. 1 Active irbesartan (AVAPRO) 300 mg tablet 1/2 tablet Orally Once a day for 60 days 0 Active pioglitazone (ACTOS) 30 mg tablet 3 Active bumetanide (BUMEX) 1 mg tablet Take 1 tablet by mouth once daily. 2 Active tamsulosin (FLOMAX) 0.4 mg Take 1 capsule by mouth once daily. 3 Active tizanidine HCl (ZANAFLEX ORAL) daily at bedtime. Active traZODone (DESYREL) 150 mg tablet 3 Active simvastatin (ZOCOR) 10 mg tablet Take 1 tablet by mouth once daily. 7 Active testosterone cypionate (DEPO-TESTOSTERO NE) 100 mg/mL injection INJECT 1.5 ML INTO THE MUSCLE EVERY 2 WEEKS DIRECTED 1 Active metoclopramide HCl (REGLAN) 10 mg tablet Take 10 mg by mouth as needed. Active FEROSUL 325 mg (65 mg iron) tablet Take 1 tablet by mouth every 12 (twelve) hours. 3 Active hydrOXYzine HCl (ATARAX) 25 mg tablet TAKE 1 TABLET BY MOUTH FOUR TIMES DAILY NEEDED MUST LAST 30 DAYS 3 Active omeprazole (PRILOSEC) 20 mg capsuleIndicatio ns:Pre-op examination Take 1 capsule by mouth twice daily. 3 Active naloxone 4 mg/actuation nasal spray (NARCAN) Use 1 spray in one nostril as needed for overdose. 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 Resolved July 2021, completed course of Eliquis. No thinners. Anxiety 12/27/2021 11/21/2022 Gastroesophageal reflux disease 12/27/2021 11/21/2022 Assessment & Plan (11/21/2022 11:29 AM EDT): Assessment: Managed and stable with current medication. Denies difficulty swallowing or any bleeding. Morbid obesity 12/27/2021 11/21/2022 Assessment & Plan (11/21/2022 11:30 AM EDT): Assessment: Body mass index is 40.02 kg/m . ELIDA (obstructive sleep apnea) 12/27/2021 Assessment & Plan (11/21/2022 11:29 AM EDT): Assessment: does not use CPAP Essential hypertension 02/02/2020 Assessment & Plan (11/21/2022 11:28 AM EDT): Assessment: compliant with current medications Followed by PCP Last 5 Encounter BP Readings: Date: BP: 11/21/2022 147/82 11/05/2022 156/84 Type 2 diabetes mellitus without complications 1 04/04/2019 11/21/2022 Assessment & Plan (11/23/2022 8:28 AM EDT): Assessment: Currently taking actos Follows with PCP Hemoglobin A1C (%) Date Value 11/21/2022 5.5 Resolved Problems Problem Noted Date Diagnosed Date Resolved Date Secondary hyperparathyroidism 11/21/2022 11/21/2022 11/21/2022 Corneal edema, unspecified 12/10/2013 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 12/07/2022 Family History Medical History Relation Comments Cancer Father Detached Retina Maternal Uncle Hypertension Maternal Uncle Diabetes Mother Relation Status Comments Father Maternal Uncle Mother Social History Tobacco Use Types Packs/Day Years Used Date Smoking Tobacco: Never Smokeless Tobacco: Never Tobacco Cessation:Counseling Given: Not Answered Alcohol Use Standard Drinks/Week Comments No 0 (1 standard drink = 0.6 oz pur e alcohol) Area Deprivation Index Answer Date Jamie rded National Score (1-100), lower number is lower ri sk 92 11/05/2022 State Score (1-10), lower number is lower risk 9 11/05/2022 Data from: https://www.neighborhoodatlas.medicine.[facility].edu/. Last address used for calculation [address] 11/05/2022 Sex and Gender Information Value Date Recorded Sex Assigned at Not on file Legal Sex Male 8:37 AM EDT Gender Identity Not on file Sexual Orientation Not on file Last Filed Vital Signs Vital Sign Reading Time Taken Comments Blood Pressure 153/94 03/25/2023 2:13 PM EST Pulse 96 03/25/2023 2:13 PM EST Temperature 37 C (98.6 F) 02/07/2023 2:37 PM EST Respiratory Rate 18 12/11/2022 11:56 AM EDT Oxygen Saturation 98% 03/25/2023 2:13 PM EST Inhaled Oxygen Concentration - - Weight 122.9 kg (271 lb) 02/07/2023 2:37 PM EST Height 175.3 cm (5' 9 ) 12/20/2022 2:26 PM EDT Body Mass Index 40.02 12/20/2022 2:26 PM EDT Plan of Treatment Health Maintenance Due Date Last Done Comments Diabetic Foot Exam 09/10/1973 Dilated Retinal Exam 09/10/1973 Urine Albumin:Creatinine Ratio 09/10/1973 Annual PCP Team Chronic Dise ase Visit 09/10/1981 BP Controlled (<130/80) 09/10/1981 Depression Screening 09/10/1981 HIV Screening 09/10/1981 Hepatitis C Screening 09/10/1981 LDL Cholesterol 09/10/1981 DTaP,Tdap,Td Vaccine (1 - Tdap) 09/10/1982 Pneumococcal Vaccine: 50+ (1 of 2 - PCV) 09/10/1982 CT Colonography 09/10/2008 Cologuard (FIT-DNA) 09/10/2008 Colonoscopy 09/10/2008 Colorectal Cancer Screening 09/10/2008 Fecal Occult Blood 09/10/2008 Sigmoidoscopy 09/10/2008 Shingrix Vaccine (1 of 2) 09/10/2013 HbA1C 05/22/2023 11/21/2022, 100 08/2021, 07/17/2021, Additional history exists RSV Vaccine (1 - Risk 60-74 years 1-dose series) 2023 Covid-19 Vaccine (1 - 2023-2 5 season) 2023 Serum Creatinine 12/12/2023 12/11/2022, , 12/09/2022, Additional history exists Influenza Vaccine (Season Ended) 2024 05/08/19 24 Prostate Cancer Screening Discussion 01/24/2027 01/24/2022 Medical Devices Implanted Type Area Earth Auger Operator Device Identifier Shelf Expiration Date Model / Serial / Lot Vitoss Ba2x Bioactive Bone Graft Substitute 5.0cub Cm Implanted:Qty: 1 on 12/07/2022 at [facility] Implant N/A: Spine - Lumbar [place] 08/23/2023 [id number] / / [id number] Cage Tritanium 6d [id number] Spinal Sterile Latex Free Lumbar Posterior - [id number] Implanted:Qty: 1 on 12/07/2022 at [facility] Implant N/A: Spine - Lumbar [place] SPINE 08/11/2025 [id number] / / [id number] Cage Tritanium 6d [id number] Spinal Sterile Latex Free Lumbar Posterior - [id number] Implanted:Qty: 1 on 12/07/2022 at [facility] Implant N/A: Spine - Lumbar [place] SPINE 12/20/2026 [id number] / / [id number] Screw Darby 3 Titanium Set Merlyn Spine - [id number] Implanted:Qty: 10 on 12/07/2022 at [facility] Implant N/A: Spine - Lumbar [place] SPINE [id number] / / Screw Darby 3 Gloria 6.5mm 45mm Bone Polyaxial Nonsterile Spine - [id number] Implanted:Qty: 2 on 12/07/2022 at [facility] Screw N/A: Spine - Lumbar [place] [employer]INE [id number] / / Screw Darby 3 Gloria 6.5mm 50mm Bone Polyaxial Nonsterile Spine - [id number] Implanted:Qty: 2 on 12/07/2022 at [facility] Screw N/A: Spine - Lumbar [place] SPINE [id number] / / Procedures Procedure Name Priority Date/Time Associated Diagnosis Comments BASIC METABOLIC PANEL Routine 12/11/2022 4:50 AM EDT HEMOGLOBIN A1C Routine 11/21/2022 11:39 AM EDT Pre-op examination from Last 3 Months or Most Recently Relevant to Health Maintenance Results * (ABNORMAL) BASIC METABOLIC PNL (12/11/2022 4:50 AM EDT) [facility] Glucose 98 74 - 99 mg/dL 12/11/2022 6:30 AM EDT [facility] Comment: The [place] Diabetes Association (ADA) provides guidance for cutoff [...] Standards of Medical Care in Diabetes 2016, [place] Diabetes Association. Diabetes Care. 2016.39(Suppl 1). BUN 13 9 - 24 mg/dL 12/11/2022 6:30 AM EDT [facility] Creatinine 1.17 0.73 - 1.22 mg/dL 12/11/2022 6:30 AM EDT [facility] Sodium 143 136 - 144 mmol/L 12/11/2022 6:30 AM EDT [facility] Potassium 4.8 3.7 - 5.1 mmol/L 12/11/2022 6:30 AM EDT [facility] Chloride 106(H) 97 - 105 mmol/L 12/11/2022 6:30 AM EDT [facility] CO2 29 22 - 30 mmol/L 12/11/2022 6:30 AM EDT [facility] Anion Gap 8(L) 9 - 18 mmol/L 12/11/2022 6:30 AM EDT [facility] Calcium, Total 8.7 8.5 - 10.2 mg/dL 12/11/2022 6:30 AM EDT [facility] Estimated Glomerular Filtration Rate 72 >=60 mL/min/1. 73m 12/11/2022 6:30 AM EDT [facility] Comment:Estimated Glomerular Filtration Rate (eGFR) is calculated using the 2020 CKD-EPI creatinine equation. This equation utilizes serum creatinine, sex, and age as parameters. The creatinine assay has traceable calibration to isotope dilution- mass spectrometry. Refer to KDIGO guidelines for clinical interpretation. In patients with unstable renal function, e.g. those with acute kidney injury, the eGFR may not accurately reflect actual GFR. Blood BLOOD SPECIMEN / Unknown Venipuncture / Unknown 12/11/2022 4:50 AM EDT 12/11/2022 5:59 AM EDT us Alyssa Archual PRINCIPAL AR[employer]URAL [employer]M.TRANSFER AND PUMPHOUSE OPERATOR [facility] Final Res ult [facility] [address] [address], * HGB A1C (11/21/2022 11:39 AM EDT) Hemoglobin A1C 5.5 4.3 - 5.6 % 11/22/2022 6:07 AM EDT [facility] Comment:[place] Diabetes As sociation guidelines indicate that patients with HgbA1c in the range 5.7-6.4% are at increased risk for development of diabetes, and intervention by lifestyle modification may be beneficial. HgbA1c greater or equal to 6.5% is considered diagnostic of diabetes. Estimated Average Glucose 111 mg/dL 11/22/2022 6:07 AM EDT [facility] Comment:eAG: (Estimated aver age glucose) is a calculated value from HgbA1c and is senior human resources representative of the average blood glucose level in the last 2-3 month period. Blood BLOOD SPECIMEN / Unknown Venipuncture / Unknown 11/21/2022 11:39 AM EDT 11/21/2022 11:39 AM EDT us Brenton Anton APRN.TRANSFER AND PUMPHOUSE OPERATOR [facility] Final Re sult [facility] [address] [id number], [place] from Last 3 Months or Most Recently Relevant to Health Maintenance Insurance [facility] [address] [place] [phone] Care Teams Retail Customer Service Specialist Relationship Specialty Start Date End Date Derick Packer MD PCP - General Family Medicine 11/06/13
--- OUTSIDE RECORDS SUMMARY | 2024-07-16 08:22 | XMS_ITS | Encounter Summary ---
Author Organization [facility] tem Address [id number] [address] [place] [address] Care Team Providers Care Binder Cutter Hand Name Role Phone Derick Packer MD Primary Care Provider [phone] Encounter Details Date Type Department Care Team (Late st Contact Info) Description 05/09/2022 Telephone [facility] [address] [place] [id number] Cherelle Oleary RN Social History Tobacco Use [...] Telephone Encounter - Cherelle Oleary RN - 05/09/2022 10:37 AM EDT Patient left message yesterday requesting that a C84 be completed. Call to clarify which form patient needs completed as a [employer]-14 was previously filled out per this office. Call placed to patient. No answer. Message left-await call back. * Telephone Encounter - Cherelle Oleary RN - 05/09/2022 10:37 AM EDT [employer] [address] Lackey and faxed today. documented in this encounter Plan of Treatment Not on file documented as of this encounter Visit Diagnoses Not on filedocumented in this encounter Care Teams Binder Cutter Hand Relationship Specialty Start Date End Date Derick Packer MD PCP - General Family Medicine 10/08/18 documented as of this encounter
--- OUTSIDE RECORDS SUMMARY | 2024-07-16 08:22 | XMS_ITS | Clinical Summary ---
Author Organization [facility] Address [address] [place] [address] Care Team Providers Care Cosmetic Dentist Name Role Phone None, Provided MD Primary Care Provider Unavaila ble Allergies No known active allergies Medications Medication Sig Dispensed Refills Start Date End Date Status bumetanide (Bumex) 1 mg tablet Take 1 tablet by mouth in the morning. Active doxazosin (Cardura) 4 mg tablet Take 4 mg by mouth in the morning. Active famotidine (Pepcid) 20 mg tablet in the morning. 11/07/2021 Active ferrous sulfate 325 (65 Fe) MG tablet Take 1 tablet by mouth in the morning and 1 tablet in the evening. 11/07/2021 Activ e irbesartan (Avapro) 300 mg tablet Take 1 tablet by mouth in the morning. Active pantoprazole (ProtoNix) 40 mg EC tablet Take 40 mg by mouth before breakfast. Active pioglitazone (Actos) 15 mg tablet Take 30 mg by mouth in the morning. Active simvastatin (Zocor) 10 mg tablet Take 10 mg by mouth at bedtime. 05/05/2020 Active sucralfate (Carafate) 1 gram tablet Take 1 g by mouth in the morning, at noon, in the evening, and at bedtime. 08/18/2021 Active testosterone cypionate (Depo-Testosterone ) 200 mg/mL injection testosterone cypionate 200 mg/mL intramuscular oil administer 3/4 mL INTRAMUSCULARLY EVERY 2 (TWO) weeks Active tizanidine HCl (ZANAFLEX ORAL) Take 4 mg by mouth at bedtime. Active tamsulosin (Flomax) 0.4 mg 24 hr capsule Take 0.4 mg by mouth in the morning. Active LORazepam (Ativan) 1 mg tablet Take 1 mg by mouth every 6 (six) hours if needed for anxiety. Active metoclopramide (Reglan) 10 mg tablet Take 10 mg by mouth if needed. Active omeprazole (PriLOSEC) [address] capsule Take 20 mg by mouth in the morning and at bedtime. 01/16/2022 Active traZODone (Desyrel) 150 mg tablet Take 150 mg by mouth at bedtime. 04/03/2022 Active ketoconazole (NIZOral) 2 % cream 1 application. every 12 (twelve) hours. 06/12/2022 Active doxycycline (Vibramycin) 100 mg capsule Take 100 mg by mouth in the morning and at bedtime. Take with at least 8 ounces (large glass) of water, do not lie down for 30 minutes after Active oxyCODONE-acetamin ophen (Percocet) 10-325 mg tablet Take 1 tablet by mouth if needed for severe pain (8-10 pain score). Active Active Problems Problem Noted Date Diagnosed Date 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 03/07/2022 Overview (03/07/2022): Added automatically from request for surgery [id number] Chronic knee pain after tota l replacement of right knee joint 01/05/2022 Chronic low back pain 01/05/2022 History of kidney stones 01/05/2022 History of pulmonary embolism 01/05/2022 Infection of prosthetic knee joint 01/02/2022 Encounter for pre-operative laboratory testing 1 02/26/2021 HTN (hypertension) 12/27/2021 Diabetes mellitus, type 2 12/27/2021 Gastroesophageal reflux disease 12/27/2021 Morbid obesity 12/27/2021 ELIDA (obstructive sleep apnea) 12/27/2021 Anxiety 12/27/2021 Chronic kidney disease 12/27/2021 Chronic instability of right knee 12/01/2021 Overview (12/01/2021): Added automatically from request for surgery [id number] Loose right total knee arthroplasty 12/01/2021 Overview (12/01/2021): Added automatically from request for surgery [id number] Quadriceps weakness 12/01/2021 Overview (12/01/2021): Added automatically from request for surgery [id number] Lumbosacral radiculopathy 12/01/2021 Overview (12/01/2021): Added automatically from request for surgery [id number] Acute renal failure 08/18/2021 Spinal stenosis, lumbar yohan on, with neurogenic claudication 08/17/2021 Overview (01/05/2022): Added automatically from request for surgery [id number] Pulmonary embolism with acute cor pulmonale 06/26 Recurrent pulmonary emboli 07/16/2021 S/P laparoscopic sleeve gastrectomy 05/24/2021 Degeneration of lumbosacral intervertebral disc 03/28/2021 Overview (01/05/2022): Added automatically from request for surgery [id number] Other specified inflammatory spondylopathies, candi mbar region 03/28/2021 Overview (01/05/2022): Added automatically from request for surgery [id number] Dyspnea and respiratory abnormality 01/25/2021 Tachycardia 01/25/2021 Edema 02/02/2020 Corneal edema, unspecified 12/10/2013 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 Encounters Date Type Department Care Team Description 06/17/2024 3:15 PM EDT Follow-Up [facility] Orthopaedics [address] [place] [address] [place] [phone] Kaleb Helm MD Status post revision of total knee replacement, right (Primary Dx); 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; Quadriceps weakness; Lumbosacral radiculopathy 05/18/2024 2:25 PM EDT Lab [facility] Draw Station [address] [place] [address] [place] [phone] 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; Status post revision of total knee replacement, right; Quadriceps weakness 05/18/2024 1:45 PM EDT Follow-Up [address] [place] [phone] Kaleb Helm MD Status post revision of total knee replacement, right (Primary Dx); 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; Quadriceps weakness; Lumbosacral radiculopathy 05/18/2024 10:36 AM EDT - 05/18/2024 11:59 PM EDT Hospital Encounter [facility] X-Ray Imaging [address] [place] [address] [place] [phone] 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 Discharge Disposition: Home or Self Care () 05/15/[address] [place] [phone] Jaja Disla MA from Last 3 Months Family History Medical History Relation Name Comments Alcohol abuse Father Esophageal cancer Father Dementia Mother Relation Name Status Comments Father Mother Alive Social History Tobacco Use Types Packs/Day Years Used Date Smoking Tobacco: Never Smokeless Tobacco: Never Tobacco Cessation:Counseling Given: Not Answered Alcohol Use Standard Drinks/Week Comments Never 0 (1 standard drink = 0.6 oz pur e alcohol) [facility] Utilities Answer Date Recorded In the past 12 months has e [employer], gas, oil, or water [employer] threatened to shut off services in your home? No 05/18/2024 Humiliation, Afraid, Rape, and Kick questionnair e Answer Date Recorded Within the last year, have y ou been afraid of your partner or ex-partner? No 03/28/2022 Emotionally Abused Not on file 03/28/2022 Physically Abused Not on file 03/28/2022 Sexually Abused Not on file 03/28/2022 Social Connection and Isolat ion Panel [NHANES] Answer Date Recorded In a typical week, how many times do you talk on the phone with family, friends, or neighbors? More than three times a week 12/01/2021 How often do you get togethe r with friends or relatives? Once a week 12/01/2021 How often do you attend [facility] or hindu services? Never 12/01/2021 Do you belong to any clubs o r organizations such as orthodox groups, unions, fraternal or athletic groups, or school groups? No 12/01/2021 How often do you attend meet ings of the clubs or organizations you belong to? Never 12/01/2021 Are you , , di vorced, , never , or living with a partner? 12/01/2021 AUDIT-C Answer Date Recorded Q1: How often do you have a drink containing alcohol? Never 12/01/2021 Q2: How many drinks containi ng alcohol do you have on a typical day when you are drinking? Patient does not drink Q3: How often do you have si x or more drinks on one occasion? Never 12/01/2021 Overall Financial Resource Strain (CARDIA) Answe r Date Recorded How hard is it for you to pa y for the very basics like food, housing, medical care, and heating? Not hard at all 03/28/2022 PHQ-2 Answer Date Recorded Patient Health Questionnaire-2 Score 0 05/18/2024 [facility] - Occupational Stress Questionnaire Answer Date Recorded Do you feel stress - tense, restless, nervous, or anxious, or unable to sleep at night because your mind is troubled all the time - these days? Not at all 12/01/2021 Exercise Vital Sign Answer Date Recorde d On average, how many days pe r week do you engage in moderate to strenuous exercise (like a brisk walk)? 0 days 12/01/2021 On average, how many minutes do you engage in exercise at this level? 20 min 12/01/2021 Hunger Vital Sign Answer Date Recorded Within the past 12 months, y ou worried that your food would run out before you got the money to buy more. Never true 03/28/19 23 Ran Out of Food in the Last Year Not on file 03/28/2022 PRAPARE - Transportation Answer Date Re corded In the past 12 months, has l ack of transportation kept you from medical appointments or from getting medications? No 03/28/2022 Lack of Transportation (Non-Medical) Not on file 03/28/2022 Housing Stability Vital Sign Answer Jimmy e Recorded Unable to Pay for Housing in the Last Year Not o n file 03/28/2022 Number of Places Lived in the Last Year Not on f ile 03/28/2022 In the last 12 months, was t here a time when you did not have a steady place to sleep or slept in a [place] facility (including now)? No 03/28/2022 MA Safety & Environment Answer Date Rec orded Fear of Current or Ex-Partner Not on file Emotionally Abused Not on file 04/18/2023 Physically Abused Not on file 04/18/2023 Sexually Abused Not on file 04/18/2023 Physically or Sexually Abused Not on file Sex and Gender Information Value Date Recorded Sex Assigned at Choose not to disclose 3:06 PM EDT Gender Identity Male 06/17/2024 3:06 PM EDT Sexual Orientation Choose not to disclose 2024 3:06 PM EDT Last Filed Vital Signs Vital Sign Reading Time Taken Comments Blood Pressure 114/73 10/12/2022 11:10 AM EDT Pulse 69 10/12/2022 11:10 AM EDT Temperature 36.6 C (97.8 F) 10/12/2022 9:36 AM EDT Respiratory Rate 24 10/12/2022 11:10 AM EDT Oxygen Saturation 95% 10/12/2022 11:10 AM EDT Inhaled Oxygen Concentration - - Weight 122 kg (270 lb) 05/18/2024 1:00 PM EDT Height 175.3 cm (5' 9 ) 05/18/2024 1:00 PM EDT Body Mass Index 39.87 05/18/2024 1:00 PM EDT Plan of Treatment Health Maintenance Due Date Last Done Comments CT Colonography 1963 Colonoscopy 1963 Colorectal Cancer Screening 1963 FIT-DNA 1963 FIT 1963 FOBT 1963 Sigmoidoscopy 1963 Pneumococcal Vaccine: Pediat rics (0 to 5 Years) and At-Risk Patients (6 to 64 Years) (1 of 2 - PCV) 09/10/1969 Diabetes: Retinopathy Screening 09/10/1973 Diabetes: Urine Protein Screening 09/10/1982 Pap Smear 09/10/1984 Adult Tetanus 09/10/1985 Cervical Cancer Screening 09/10/1993 HPV/Cotest 09/10/1993 Mammogram 2003 Zoster Vaccines (1 of 2) 09/10/2013 Diabetes: Hemoglobin A1C 03/03/2022 12/01/2021 COVID-19 Vaccine (2023-2 5 season) 2023 Influenza Vaccine (Season Ended) 2024 Depression Screening 05/18/2025 05/18/2024 HIB Vaccines Aged Out No longer eligi ble based on patient's age to complete this topic HPV Vaccines Aged Out No longer eligi ble based on patient's age to complete this topic IPV Vaccines Aged Out No longer eligi ble based on patient's age to complete this topic Meningococcal B Vaccine Aged Out No l onger eligible based on patient's age to complete this topic Meningococcal Vaccine Aged Out No kay oziel eligible based on patient's age to complete this topic Rotavirus Vaccines Aged Out No longer eligible based on patient's age to complete this topic Medical Devices Implanted Type Area Veterinary Pathologist Device Identifier Shelf Expiration Date Model / Serial / Lot Cement,Bone,R,1x 40us - [id number] Implanted:Qty: 4 on 12/27/2021 by Kaleb Helm MD at [facility] Bone Cement Right: Knee AZALIA 12/26/2023 [id number] / / [id number] Description:For third cement , only enclosed solution was used. MIXED WITH 6G VANCOMYCIN (LOT [id number], 06/2024; LOT [id number], 05/2024; LOT [id number], 05/2024) 4.8G TOBRAMYCIN (LOT [id number], 02/2023; LOT [id number], 02/2023) Fourth cement implanted without antibiotics. Cement,Bone,R,1x 40us - [id number] Implanted:Qty: 2 on 03/28/2022 by Kaleb Helm MD at [facility] Bone Cement Right: Knee AZALIA [id number] 05/25/2024 [id number] / / [id number] Remedy Tibial Insert Wedge Implanted:Qty: 1 on 12/27/2021 by Kaleb Helm MD at [facility] Right: Knee Other 04/24/2025 ADI / / [id number] Description:MANAGER [employer]IL [employer] Remedy Stemmed Tibial Component Implanted:Qty: 1 on 12/27/2021 by Kaleb Helm MD at [facility] Right: Knee Other 05/25/2024 [id number] / / [id number] Description:MANAGER MAIL OST EOREMEDFarmstr Remedy Stemmed Femoral Component Implanted:Qty: 1 on 12/27/2021 by Kaleb Helm MD at [facility] Right: Knee Other 04/24/2024 [id number] / / [id number] Description:MANUFACTURED BY OSTEOREMEDFarmstr Remedy Stem Extension Component Implanted:Qty: 2 on 12/27/2021 by Kaleb Helm MD at [facility] Right: Knee Other 12/26/2023 [id number] / / [id number] Description:MANUFACTURED BY OSTEZAOZAO Persona Revision Femoral Distal Augment Cemented Implanted:Qty: 1 on 03/28/2022 by Kaleb Helm MD at [facility] Right: Knee AZALIA [id number] 01/10/2032 42-5566-066 -10 / / [id number] Persona Revision Stem Extension Implanted:Qty: 1 on 03/28/2022 by Kaleb Helm MD at [facility] Right: Knee AZALIA [id number] 02/06/2030 42-5606-135 -14 / / [id number] Persona Revision Femoral Distal Augment Cemented Implanted:Qty: 1 on 03/28/2022 by Kaleb Helm MD at [facility] Right: Knee AZALIA [id number] 01/10/2032 42-5566-066 -10 / / [id number] Persona Revision Femur Cemented Implanted:Qty: 1 on 03/28/2022 by Kaleb Helm MD at [facility] Right: Knee AZALIA [id number] 09/28/2030 42-5046-066 -12 / / [id number] Persona Revision Tibial Augment Cemented Implanted:Qty: 1 on 03/28/2022 by Kaleb Helm MD at [facility] Right: Knee AZALIA [id number] 06/24/2031 42-5558-052 -10 / / [id number] Persona Revision Vivacit-E Highly Crosslinked Polyethylene Articular Surface Implanted:Qty: 1 on 03/28/2022 by Kaleb Helm MD at [facility] Right: Knee AZALIA [id number] 07/03/2025 42-5228-007 -18 / / [id number] Persona Revision Tibial Augment Cemented Implanted:Qty: 1 on 03/28/2022 by Kaleb Helm MD at [facility] Right: Knee AZALIA [id number] 10/10/2031 42-5558-054 -10 / / [id number] Persona Revision Tibia Fixed Cemented Implanted:Qty: 1 on 03/28/2022 by Kaleb Helm MD at [facility] Right: Knee AZALIA [id number] 01/24/2032 [id number] -02 / / [id number] Persona Revision Stem Extension Implanted:Qty: 1 on 03/28/2022 by Kaleb Helm MD at [facility] Right: Knee AZALIA [id number] 07/25/2029 42-5606-135 -11 / / [id number] Procedures Procedure Name Priority Date/Time Associated Diagnosis Comments CBC WITH AUTO DIFFERENTIAL Routine 05/18/2024 2:21 PM EDT 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, right Quadriceps weakness CBC AND DIFFERENTIAL Routine 05/18/2024 2:21 PM EDT 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, right Quadriceps weakness BASIC METABOLIC PANEL Routine 05/18/2024 2:21 PM EDT 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, right Quadriceps weakness SEDIMENTATION RATE Routine 05/18/2024 2: 21 PM EDT 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, right Quadriceps weakness C-REACTIVE PROTEIN Routine 05/18/2024 2: 21 PM EDT 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, right Quadriceps weakness XR KNEE 3 VIEWS RIGHT Routine 05/18/2024 1:21 PM EDT 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 HEMOGLOBIN A1C Routine 12/01/2021 12:11 PM EDT 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, initial encounter from Last 3 Months or Most Recently Relevant to Health Maintenance Results * CBC auto differential (05/18/2024 2:21 PM EDT) Auto WBC 8.26 4.00 - 10.60 10*3/uL 05/18/2024 2:50 PM EDT [facility] ([facility]) RBC 5.23 4.20 - 5.70 10*6/uL 05/18/2024 2:50 PM EDT [facility] ([facility]) Hemoglobin 16.5 13.0 - 17.0 g/dL 05/18/2024 2:50 PM EDT [facility] ([facility]) Hematocrit 47.8 39.0 - 50.0 % 05/18/2024 2:50 PM EDT [facility] ([facility]) MCV 91.4 82.0 - 98.0 fL 05/18/2024 2:50 PM EDT [facility] ([facility]) MCH 31.5 27.0 - 33.0 pg 05/18/2024 2:50 PM EDT [facility] ([facility]) MCHC 34.5 32.0 - 35.0 g/dL 05/18/2024 2:50 PM EDT [facility] ([facility]) RDW 11.9 11.5 - 15.0 % 05/18/2024 2:50 PM EDT [facility] ([facility]) Neutrophils % 67.3 40.0 - 72.0 % 05/18/2024 2:50 PM EDT [facility] ([facility]) Lymphocytes % 21.8 20.0 - 45.0 % 05/18/2024 2:50 PM EDT [facility] ([facility]) Monocytes % 8.0 5.0 - 12.0 % 05/18/2024 2:50 PM EDT [facility] ([facility]) Eosinophils % 1.8 0.0 - 6.0 % 05/18/2024 2:50 PM EDT [facility] ([facility]) Basophils % 0.7 0.0 - 1.0 % 05/18/2024 2:50 PM EDT [facility] ([facility]) Neutrophils Absolute 5.56 1.60 - 7.60 10*3/uL 05/18/2024 2:50 PM EDT [facility] ([facility]) Lymphocytes Absolute 1.80 1.20 - 4.00 10*3/uL 05/18/2024 2:50 PM EDT [facility] ([facility]) Monocytes Absolute 0.66 0.10 - 1.00 10*3/uL 05/18/2024 2:50 PM EDT [facility] ([facility]) Eosinophils Absolute 0.15 0.00 - 0.50 10*3/uL 05/18/2024 2:50 PM EDT [facility] ([facility]) Basophils Absolute 0.06 0.00 - 0.20 10*3/uL 05/18/2024 2:50 PM EDT [facility] ([facility]) Platelets 247 150 - 400 10*3/uL 05/18/2024 2:50 PM EDT [facility]) nRBC % 0.0 0 % 05/18/2024 2:50 PM T [facility] ([facility]) Immature Granulocytes % 0.4 0.0 - 1.0 % 05/18/2024 2:50 PM T [facility]) Immature Granulocytes Absolute 0.03 0.00 - 0.20 10*3/uL 05/18/2024 2:50 PM T [facility]) Blood Venous blood specimen / Unknown Venipuncture / Unknown 05/18/2024 2:21 PM EDT 05/18/2024 2:43 PM EDT Kaleb Helm MD LAB BLOOD ORDERABLES Performing Organization Address City/[facility]/ZIP Co de Phone Number [facility] ([facility]) [address] [place] [address] * Sedimentation rate (05/18/2024 2:21 PM EDT) Sed Rate 5 <20 mm/hr 05/18/2024 3:0 8 PM EDT [facility] ([facility]) Blood Venous blood specimen / Unknown Venipuncture / Unknown 05/18/2024 2:21 PM EDT 05/18/2024 2:43 PM EDT Kaleb Helm MD LAB BLOOD ORDERABLES Performing Organization Address [facility] Co de Phone Number [facility] ([facility]) [address] [place] [address] * C-reactive protein (05/18/2024 2:21 PM EDT) CRP <5.4 <=5.0 mg/L 05/18/2024 4:06 PM EDT [facility] ([facility]) Comment:Testing performed us ing a new methodology, turbidimetry. Normal ranges have been updated. Old normal range was <8 mg/L. Blood Venous blood specimen / Unknown Venipuncture / Unknown 05/18/2024 2:21 PM EDT 05/18/2024 2:44 PM EDT Kaleb Helm MD LAB BLOOD ORDERABLES Performing Organization Address City/[facility]/ZIP Co de Phone Number [facility] ([facility]) [address] [place], [place] [id number] * (ABNORMAL) Basic metabolic panel (05/18/2024 2:21 PM EDT) Sodium 140 136 - 145 mmol/L 05/18/2024 3:07 PM EDT [facility] ([facility]) Potassium 4.4 3.5 - 5.1 mmol/L 05/18/2024 3:07 PM EDT [facility] ([facility]) Chloride 105 98 - 107 mmol/L 05/18/2024 3:07 PM EDT [facility] ([facility]) CO2 27 21 - 31 mmol/L 05/18/2024 3:07 PM EDT [facility] ([facility]) BUN 23 7 - 25 mg/dL 05/18/2024 3:07 PM EDT [facility] ([facility]) Creatinine 1.42(H) 0.70 - 1.30 mg/dL 05/18/2024 3:07 PM EDT [facility] ([facility]) Glucose 102(H) 70 - 100 mg/dL 05/18/2024 3:07 PM EDT [facility] ([facility]) Calcium 9.9 8.6 - 10.3 mg/dL 05/18/2024 3:07 PM EDT [facility] ([facility]) Anion Gap 12 7 - 20 mmol/L 05/18/2024 3:07 PM T [facility] ([facility]) eGFR 56.6(L) >60.0 mL/min/1. 73m*2 05/18/2024 3:07 PM EDT [facility] ([facility]) Comment:The [facility] s estimated glomerular filtration rate (eGFR) will no longer include consideration of race in its calculation. The [employer] s eGFR Task Force developed new recommendations for [...] disproportionately affect any one group of individuals. BUN/Creatinine Ratio 16.2 04/26 3:07 PM EDT [facility] ([facility]) Blood Venous blood specimen / Unknown Venipuncture / Unknown 05/18/2024 2:21 PM EDT 05/18/2024 2:44 PM EDT Kaleb Helm MD LAB BLOOD ORDERABLES [facility] ([facility]) [address] [place] [address] * XR knee 3 views right (05/18/2024 1:21 PM EDT) Anatomical Region Laterality Modality Lower Extremities, Knee Right Computed Radiography 05/18/2024 4:21 PM EDT Impressions 05/18/2024 4:22 PM EDT Impression: * No acute findings. Prosthesis is similar to 06/22/2022 * Electronically signed: Jesus Guajardo. Narrative 05/18/2024 4:22 PM EDT XR KNEE 3 VIEWS RIGHT History: Pain and swelling Findings: There is no fracture or destructive lesion. Procedure Note Jesus Guajardo MD - 05/18/2024 XR KNEE 3 VIEWS RIGHT History: Pain and swelling Findings: There is no fracture or destructive lesion. IMPRESSION: Impression: *No acute findings. Prosthesis is similar to 06/22/2022 *Electronically signed: Jesus Guajardo. Kaleb Helm MD IMG XR PROCEDURES * Hemoglobin A1c (12/01/2021 12:11 PM EDT) Hemoglobin A1C 5.8 4.0 - 6.0 % 12/04/2021 12:01 PM EDT [facility] ([place]) Estimated Average Glucose 119.76 mg/dL 12/04/2021 12:01 PM EDT [facility] ([place]) Blood Venous blood specimen / Unknown Venipuncture / Unknown 12/01/2021 12:11 PM EDT 12/01/2021 12:11 PM EDT Kaleb Helm MD LAB BLOOD ORDERABLES [facility] ([place]) [address] [place] [address] from Last 3 Months or Most Recently Relevant to Health Maintenance Advance Directives * Full Code (Latest Code Status on File) Date Activated Date Inactivated Comments 03/28/2022 2:09 PM 03/29/2022 7:53 PM * Full Code Date Activated Date Inactivated Comments 12/27/2021 12:14 PM 01/02/2022 3:46 PM Care Teams Cosmetic Dentist Relationship Specialty Start Date End Date None, Provided, PCP - General 09/04/22
--- OUTSIDE RECORDS SUMMARY | 2024-07-16 08:22 | XMS_ITS | Clinical Summary ---
Author Organization [facility] Address [address] [place] [address] Care Team Providers Care Slasher Hand Name Role Phone Derick Packer MD Primary Care Provider [phone] Allergies Active Allergy Reactions Criticality Noted Date Comments Povidone Iodine Rash Low 01/08/2020 Medications cetirizine 10 MG tablet Take 10 mg by mouth at bedtime. 0 Active carveDILOL (Coreg) 25 MG tablet Active irbesartan (Avapro) 300 MG tablet 1 tablet Active amitriptyline 50 MG tablet 1-3 tablet at bedtime Active amLODIPine 10 MG tablet Take 5 mg by mouth daily. 0 Active Dulaglutide (Trulicity) 0.75 MG/0.5ML Solution Pen-injector injection as directed Active Dapagliflozin Propanediol (Farxiga) 5 MG tablet 1 tablet Active gliMEPIride 4 MG tablet Take 4 mg by mouth daily. 0 Active pioglitazone 30 MG tablet Take 30 mg by mouth daily. 0 Active simvastatin 10 MG tablet 1 tablet in the evening Active tiZANidine (Zanaflex) 4 MG tablet Every 8 hours. Only taking NEEDED Active oxybutynin 5 MG tablet Take 5 mg by mouth 2 times daily. Active hydroCHLOROthiaz cl 25 MG tabletIndication s:Essential hypertension,[place] ma, unspecified type TAKE 1 TABLET BY MOUTH DAILY 90 tablet 3 1 Active Active Problems Problem Noted Date Diagnosed Date Edema 02/02/2020 Type 2 diabetes mellitus without complications 1 04/04/2019 Essential hypertension 02/02/2020 body mass index of 40.0-49.9 02/02/2020 Social History Tobacco Use Types Packs/Day Years Used Date Smoking Tobacco: Never Smokeless Tobacco: Never Alcohol Use Standard Drinks/Week Comments Never 0 (1 standard drink = 0.6 oz pur e alcohol) AUDIT-C Answer Date Recorded Q1: How often do you have a drink containing alc ohol? Never 02/02/2020 Average Number of Drinks Not on file 020 Frequency of Binge Drinking Not on file 09/2019 Sex and Gender Information Value Date Recorded Sex Assigned at Not on file Legal Sex Male 11:39 AM EDT Gender Identity Not on file Sexual Orientation Not on file Last Filed Vital Signs Vital Sign Reading Time Taken Comments Blood Pressure 130/88 03/29/2020 1:28 PM EST Pulse 92 03/29/2020 1:28 PM EST Temperature 35.9 C (96.7 F) 01/08/2020 2:04 PM EST Respiratory Rate 18 03/29/2020 1:28 PM EST Oxygen Saturation 94% 03/29/2020 1:28 PM EST Inhaled Oxygen Concentration - - Weight 149.3 kg (329 lb 3.2 oz) 03/29/2020 1:28 PM EST Height 175.3 cm (5' 9 ) 03/29/2020 1:28 PM EST Body Mass Index 48.61 03/29/2020 1:28 PM EST Plan of Treatment Health Maintenance Due Date Last Done Comments HEPATITIS C VIRUS SCREENING 1963 TETANUS 1963 HIV SCREENING DISCUSSION 09/10/1978 TDAP (ADULT) 09/10/1982 LIPID SCREENING 2003 COLORECTAL CANCER SCREENING DISCUSSION 09/10/2008 PNEUMOCOCCAL VACCINE SERIES (1 of 1 - PCV) 09/10/2013 ZOSTER (SHINGLES) VACCINE (1 of 2) 09/10/2013 PROSTATE CANCER SCREENING DISCUSSION 09/10/2018 COVID-19 VACCINE ( - 2023-2 5 season) 2023 INFLUENZA VACCINE (Season Ended) 2024 RSV VACCINE (1 - 1-dose 75+ series) 09/10/2038 HEP B VACCINE Aged Out No longer elig ible based on patient's age to complete this topic Insurance [employer] Care Teams Slasher Hand Relationship Specialty Start Date End Date Derick Packer MD PCP - General Family Medicine 01/08/20
--- OUTSIDE RECORDS SUMMARY | 2024-07-16 08:22 | XMS_ITS | Encounter Summary ---
Author Organization [facility] tem Address [id number] [address] [place] [address] Care Team Providers Care Hospital Nursing Assistant Name Role Phone Derick Packer MD Primary Care Provider [phone] Encounter Details Date Type Department Care Team (Late st Contact Info) Description 02/20/2022 Telephone [facility] [address] [place] [id number] Cherelle Oleary RN Social History Tobacco Use [...] on file Sexual Orientation Not on file COVID-19 Exposure Response Date Recorded In the last month, have you been in contact with someone who was confirmed or suspected to have Coronavirus / COVID-19? No / Unsure 02/15/2022 10:44 AM EST documented as of this encounter Plan of Treatment Not on file documented as of this encounter Visit Diagnoses Not on filedocumented in this encounter Care Teams Hospital Nursing Assistant Relationship Specialty Start Date End Date Derick Packer MD PCP - General Family Medicine 10/08/18 documented as of this encounter
--- OUTSIDE RECORDS SUMMARY | 2024-07-16 08:22 | XMS_ITS | Clinical Summary ---
Author Organization [facility] Healthcare Address [address] [place] [address] Care Team Providers Care Crown Pouncer Name Role Phone Unavailable Primary Care Provider Unavailabl e Social History Tobacco Use Types Packs/Day Years Used Date Smoking Tobacco: Never Assessed Sex and Gender Information Value Date Recorded Sex Assigned at Not on file Legal Sex Male 6:40 PM EDT Gender Identity Not on file Sexual Orientation Not on file Last Filed Vital Signs Vital Sign Reading Time Taken Comments Blood Pressure 125/82 05/01/2017 12:00 PM EST Pulse - - Temperature - - Respiratory Rate - - Oxygen Saturation - - Inhaled Oxygen Concentration - - Weight 142 kg (312 lb) 12/17/2019 12:00 PM EDT Height 175.3 cm (5' 9 ) 12/22/2020 12:00 PM EDT Body Mass Index 46.07 12/17/2019 12:00 PM EDT Plan of Treatment Not on file
--- OUTSIDE RECORDS SUMMARY | 2024-07-16 08:23 | XMS_ITS | Patient Health Record ---
Author Organization [facility] Address [address] [place] [address] Care Team Providers Care Drafter Cartographic Name Role Phone Rakesh Quiñones Unavailable [phone] UNASSIGNED, UNASSIGNED Unavailable Unavailab le Allergies Allergen (clinical drug ingredient) Drug/Non Drug Allergy documented on EMR Reaction Allergy Type Onset Date Status povidone-iodine Betadine rash, redness Drug Allergy Active Reason For Referral No Information Social History Tobacco Use: Social History Observation Description Date Details (start date - stop date) Never Smoker NA - NA Smoking History Question Answer Notes Smoking Status NonSmoker Problems Problem Type SNOMED Code ICD Code Onset Dates Problem Status W/U Status Risk Notes Problem 819691008 Spinal stenosis, lumbosacral region (M48.07) Active confirmed Problem Spinal stenosis of lumbar region with neurogenic claudication (M48.062) Active confirmed Plan Of Treatment No Information Insurance Providers Payer Name Payer Address Payer Phone Subscriber Number Group Number Insured Name Patient Relationship to Insured Coverage Start Date Coverage End Date [facility] ([facility]) [id number] [place] [address] [id number] SUKHDEEP SIMENTAL Self - patient is the insured 0 Medical (General) History Medical History History ICD Code Diabetes: Yes High Blood Pressure: Yes Anxiety: Yes Sleep apnea: Yes CPAP Machine: Yes Do you use the CPAP machine? No Kidney trouble Yes, Kisney Stones Drug Allergies: Yes Surgical History Surgery Date(Month/Year) abdominal procedure 04/2020 Kidney stone removal 02/2020 L4-S1 laminectomy, PSF 06/2019 ANKLE SPURS 2018 BILATERAL KNEE ARTHOPLASTY [phone] Hospitalization History Reason Date(Month/Year) L-SPINE BULGING DISC 2019
--- OUTSIDE RECORDS SUMMARY | 2024-07-16 08:23 | XMS_ITS | Clinical Summary ---
Author Organization [facility] Address [address] [place] [address] Care Team Providers Care Electric Distribution Checker Name Role Phone Derick Packer MD Primary Care Provider [phone] Allergies Active Allergy Reactions Criticality Noted Date Comments Chlorhexidine Low 06/22/2020 Iodine Rash Low 10/08/2018 Topical iodine Povidone-Iodine Rash Low 09/26/2018 Medications tiZANidine (ZANAFLEX) 4 MG tablet 4 mg 1-2 every night 1 Active simvastatin (ZOCOR) 10 MG tablet Simvastatin Active 10 MG PO Daily at bedtime May 05, 2020 11:40am 1 Active doxazosin (CARDURA) 4 MG tablet Take 4 mg by mouth nightly Active irbesartan (AVAPRO) 300 MG tablet Take 300 mg by mouth nightly Active traZODone (DESYREL) 50 MG tablet Take 50 mg by mouth nightly Active Cetirizine HCl (ZYRTEC ALLERGY PO) Take 15 mg by mouth daily Active tamsulosin (FLOMAX) 0.4 MG capsule Take 0.4 mg by mouth daily Active pantoprazole (PROTONIX) 40 MG tablet TAKE 1 TABLET BY MOUTH EVERY DAY 2 Active metoprolol tartrate (LOPRESSOR) 25 MG tablet Take 1 tablet by mouth 2 times daily 60 tablet 2 Active apixaban (ELIQUIS) 5 MG TABS tablet Take 2 tablets by mouth 2 times daily for 12 doses 12 tablet 2 Active indomethacin (INDOCIN) 50 mg capsule TAKE 1 CAPSULE BY MOUTH THREE TIMES DAILY NEEDED FOR PAIN 2 Active pioglitazone (ACTOS) 30 MG tablet TAKE 1 TABLET BY MOUTH ONCE DAILY 2 Active glimepiride (AMARYL) 4 MG tablet TAKE 1 TABLET BY MOUTH EVERY DAY 2 Active ondansetron (ZOFRAN) 4 MG tabletIndication s:Diabetes mellitus type 2 in obese,Hypertensi on, unspecified type,Obesity, Class III, BMI 40-49.9 (morbid obesity) (HCC),Recurrent pulmonary emboli (HCC),History of kidney stones,Chronic knee pain 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,S/P laparoscopic sleeve gastrectomy Take 1 tablet by mouth every 8 hours as needed for Nausea or Vomiting 30 tablet 2 2 Active famotidine (PEPCID) 20 MG tabletIndication s:Diabetes mellitus type 2 in obese,Hypertensi on, unspecified type,Obesity, Class III, BMI 40-49.9 (morbid obesity) (HCC),Recurrent pulmonary emboli (HCC),History of kidney stones,Chronic 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 Post -op Bariatric Summary Procedure: sleeve Surgeon:Dr. Newsome HT: 5'9 Date Weight Labs Ordered Labs Resulted Notes Initial Wt 06-22-20 333 Day of Surgery 05-24-21 343 1 Wk Post-op 06-02-21 325 5 Wk Post-op ? 3 Mon Post-op 08-18-21 307 ? ? 6 Mon Post-op ? 9 Mon Post-op ? 1 Year Post-op ? Annual ? ? Starting at 1 Wk Post-op: Bariatric Multivitamin with iron and Calcium Problem Noted Date Diagnosed Date Acute renal failure 08/18/2021 Obesity, Class III, BMI 40-49.9 (morbid obesity) 07/26/2021 Recurrent pulmonary emboli 07/16/2021 Pulmonary embolism with acute cor pulmonale 06/26 S/P laparoscopic sleeve gastrectomy 05/24/2021 Dyspnea and respiratory abnormality 01/25/2021 Tachycardia 01/25/2021 Type 2 diabetes mellitus with obesity 12/28/2020 Overview (11/27/2023): Problem List Diagnosis Replacement Utility 11/26/2023 Hypertension History of pulmonary embolism History of kidney stones Chronic knee pain after tota l replacement of right knee joint Chronic low back pain Resolved Problems Problem Noted Date Diagnosed Date Resolved Date Morbid obesity with BMI of 50.0-59.9, adult 12/28/2020 07/26/2021 Encounters Date Type Department Care Team Description 05/12/2024 Telephone [facility] [address] [facility] [address] [place] [address] Jace Newsome DO Annual post op appointment from Last 3 Months Family History Medical History Relation Name Comments Cancer Father bone and jaw ca ncer Breast Cancer Maternal Grandmother Relation Name Status Comments Father Maternal Grandmother Social History Tobacco Use Types Packs/Day Years Used Date Smoking Tobacco: Never Smokeless Tobacco: Never Alcohol Use Standard Drinks/Week Comments Never 0 (1 standard drink = 0.6 oz pur e alcohol) AUDIT-C Answer Date Recorded Frequency of Alcohol Consumption Never 04/11/2019 Average Number of Drinks Not on file 020 Frequency of Binge Drinking Not on file 03/28 Sex and Gender Information Value Date Recorded Sex Assigned at Not on file Legal Sex Male 10:06 AM EDT Gender Identity Not on file Sexual Orientation Not on file Last Filed Vital Signs Vital Sign Reading Time Taken Comments Blood Pressure 120/75 08/18/2021 3:30 PM EDT Pulse 102 08/18/2021 3:30 PM EDT Temperature 36.3 C (97.4 F) 07/18/2021 4:45 PM EDT Respiratory Rate 20 07/26/2021 2:29 PM EDT Oxygen Saturation 94% 07/18/2021 12:00 PM EDT Inhaled Oxygen Concentration - - Weight 139.3 kg (307 lb) 08/18/2021 3:30 PM EDT Height 175.3 cm (5' 9 ) 08/18/2021 3:30 PM EDT Body Mass Index 45.34 08/18/2021 3:30 PM EDT Plan of Treatment Health Maintenance Due Date Last Done Comments Diabetic foot exam 09/10/1973 Depression Screen 1975 HIV screen 09/10/1978 Diabetic Alb to Cr ratio (uACR) test 09/10/1981 Diabetic retinal exam 09/10/1981 Hepatitis C screen 09/10/1981 DTaP/Tdap/Td vaccine (1 - Tdap) 09/10/1982 Pneumococcal 50+ years Vaccine (1 of 2 - PCV) 09/10/1982 Colonoscopy 09/10/2008 Colorectal Cancer Screen 09/10/2008 FIT/FOBT: Average risk 09/10/2008 Fecal-DNA (Cologuard): Average risk 09/10/2008 Sigmoidoscopy/CT colonography 09/10/2008 Shingles vaccine (1 of 2) 09/10/2013 GFR test (Diabetes, CKD 3-4, OR last GFR 15-59) 07/17/2022 07/17/2021, 07/17/2021, 05/25/2021, Additional history exists A1C test (Diabetic or Prediabetic) 08/08/2022 08/08/2021, 07/17/2021, 01/03/2021 Lipids 08/08/2022 08/08/2021, 01/03/2021 Respiratory Syncytial Virus (RSV) or age 60 yrs+ (1 - Risk 60-74 years 1-dose series) 2023 COVID-19 Vaccine ( - 2023- season) 2023 Flu vaccine (Season Ended) 2024 Diabetes screen Discontinued 08/08/2021, 06/26, 01/03/2021 Hepatitis A vaccine Aged Out No longe r eligible based on patient's age to complete this topic Hepatitis B vaccine Aged Out No longe r eligible based on patient's age to complete this topic Hib vaccine Aged Out No longer eligi ble based on patient's age to complete this topic Meningococcal (ACWY) vaccine Aged Out No longer eligible based on patient's age to complete this topic Meningococcal B vaccine Aged Out No l onger eligible based on patient's age to complete this topic Polio vaccine Aged Out No longer elig ible based on patient's age to complete this topic Medical Devices Implanted Type Area Wheel Mill Operator Device Identifier Shelf Expiration Date Model / Serial / Lot Joint Component Joint Component Bilateral: Knee Screw/Plate/N ail/Luis Screw/Plate/N ail/Luis N/A: Spine Thoracic Procedures Procedure Name Priority Date/Time Associated Diagnosis Comments LIPID PANEL Routine 08/08/2021 Diabetes mellitus type 2 in obese (HCC) Hypertension, unspecified type History of pulmonary embolism Chronic low back pain, unspecified back pain laterality, unspecified whether sciatica present S/P laparoscopic sleeve gastrectomy Obesity, Class III, BMI 40-49.9 (morbid obesity) ([facility]) HEMOGLOBIN A1C Routine 08/08/2021 Diabetes mellitus type 2 in obese (HCC) Hypertension, unspecified type History of pulmonary embolism Chronic low back pain, unspecified back pain laterality, unspecified whether sciatica present S/P laparoscopic sleeve gastrectomy Obesity, Class III, BMI 40-49.9 (morbid obesity) ([facility]) BASIC METABOLIC PANEL W/ REFLEX TO MG FOR LOW K Routine 07/17/2021 2:06 AM EDT from Last 3 Months or Most Recently Relevant to Health Maintenance Results * Hemoglobin A1C (08/08/2021) Hemoglobin A1C 6.5 % Estimated Avg Glucose 140 BLOOD SPECIMEN / Unknown 08/08/2021 Gabbie Kendall SALES REPRESENTATIVE [employer] - CH[employer]ST[employer] SEAT JOINER CHEMISTRY ORDERABLES Final Result * Lipid Panel (08/08/2021) Cholesterol, Total 187 mg/dL HDL 51 35 - 70 mg/dL LDL Calculated 101.8 0 - 160 mg/dL Triglycerides 171 mg/dL Chol/HDL Ratio 3.7 VLDL 34.2 mg/dL Cholesterol non HDL BLOOD SPECIMEN / Unknown 08/08/2021 Gabbie Kendall SALES REPRESENTATIVE [employer] - CHAINSTITCH SEAT JOINER CHEMISTRY ORDERABLES Final Result * (ABNORMAL) Basic Metabolic Panel w/ Reflex to MG (07/17/2021 2:06 AM EDT) Glucose 170(H) 70 - 99 mg/dL 07/17/2021 2:06 AM EDT [facility] BUN 33(H) 6 - 20 mg/dL 07/17/2021 2:06 AM EDT [facility] Creatinine 1.40(H) 0.70 - 1.20 mg/dL 07/17/2021 2:06 AM EDT [facility] Calcium 9.3 8.6 - 10.4 mg/dL 07/17/2021 2:06 AM EDT [facility] Sodium 138 135 - 144 mmol/L 07/17/2021 2:06 AM EDT [facility] Potassium 4.6 3.7 - 5.3 mmol/L 07/17/2021 2:06 AM EDT [facility] Chloride 106 98 - 107 mmol/L 07/17/2021 2:06 AM EDT [facility] CO2 23 20 - 31 mmol/L 07/17/2021 2:06 AM EDT [facility] Anion Gap 9 9 - 17 mmol/L 07/17/2021 2:06 AM EDT [facility] GFR Non- 52(L) >60 mL/min 07/17/2021 2:06 AM EDT [facility] GFR >60 >60 mL/min 07/17/2021 2:06 AM EDT [facility] GFR Comment 07/17/2021 2:06 AM EDT [facility] Comment: Average GFR for 50-59 years old: 93 mL/min/1.73sq m Chronic Kidney Disease: <60 mL/min/1.73sq m Kidney failure: <15 mL/min/1.73sq m eGFR calculated using average adult body mass. Additional eGFR calculator available at: http://[email or web address]/multiple_crcl_2012.htm 07/17/2021 2:06 AM EDT 07/17/2021 2:09 AM EDT us Lynn Parada SALES REPRESENTATIVE PUBLIC [employer] - DIRECTOR OF PHOTOGRAPHY CHEMISTRY ORDERABLES [place] [address], [facility] [phone] from Last 3 Months or Most Recently Relevant to Health Maintenance Insurance [employer] [place] [id number] Advance Directives * Full Code (Latest Code Status on File) Date Activated Date Inactivated Comments 07/16/2021 9:42 AM 07/18/2021 8:50 PM * Full Code Date Activated Date Inactivated Comments 05/24/2021 4:29 PM 05/26/2021 4:33 PM Care Teams Electric Distribution Checker Relationship Specialty Start Date End Date Derick Packer MD [address] [place] [address] PCP - General Family Medicine 04/11/19
--- OUTSIDE RECORDS SUMMARY | 2024-07-16 08:23 | XMS_ITS | Patient Health Record ---
Author Organization [facility] in [place] Address [address] [place] [address] Care Team Providers Care Animal Trainer Name Role Phone ABELARDO PACKER MD Primary Care Provider [phone] BLAYNE PACKER Unavailable [phone] Abelardo Packer Unavailable [phone] Estephanie Nevarez Unavailable [phone] Allergies No Known Allergies Results Component Value Reference Range Notes XR chest 2V Reviewed date:04/11/2024 02:13:28 PM Interpretation: Performing Lab: Notes/Report: Source Facility: [place] [address] XRay Report Signed Patient: SUKHDEEP SIMENTAL MR#: [id number] : 1965 Acct:[id number] Age/Sex: 58 / M ADM Date: 04/10/24 Loc: RAD Attending Dr: Blayne Packer M.D. Ordering Physician: Blayne Packer M.D. Date of Service: 04/10/24 Procedure(s): XR chest 2V Accession Number(s): [id number] cc: Blayne Packer M.D. [place] [address] Patient Name: SUKHDEEP SIMENTAL MRN: [id number] date: 1965 Sex: M Assigned Patient Location: RAD Current Patient Location: Accession/Order Number: [id number] Exam Date: 04/10/2024 11:30 Report Date: 04/11/2024 08:26 At the request of: BLAYNE PACKER Procedure: XR chest 2V EXAMINATION: XR chest 2V HISTORY: Cough COMPARISON: 12/24/2022 TECHNIQUE: PA and lateral FINDINGS: LUNGS: No significant pulmonary parenchymal abnormalities. VASCULATURE: No increased pulmonary vasculature. PLEURA: No pneumothorax, effusion, or pleural thickening. CARDIAC: No cardiomegaly or cardiac silhouette abnormality. MEDIASTINUM: No visible mass or adenopathy. BONES: No fracture or visible bone lesion. OTHER: Negative. XR/XR chest 2V IMPRESSION: No acute cardiopulmonary process Electronically authenticated by: OBIE TSE Date: 04/11/2024 08:26 Dictated By: Obie Tse M.D. Signed By: 04/11/24827 DD/ 5 TD/TT: Rough Rice Tender: [place] [address] XRay Report Signed Patient: SUKHDEEP SIMENTAL MR#: [id number] : 1965 Acct:[id number] Age/Sex: 58 / M ADM Date: 04/10/24 Loc: RAD Attending Dr: Payton Packer M.D. Ordering Physician: Blayne Packer M.D. Date of Service: 04/10/24 Procedure(s): XR zoie st 2V Accession Number(s): [id number] cc: Blayne Packer M.D. The [place] [address] Patient Name: SUKHDEEP SIMENTAL MRN: [id number] date: 1965 Sex: M Assigned Patient Location: RAD Current Patient Location: Accession/Order Numb er: [id number] Exam Date: 04/10/2024 11:30 Report Date: 04/11/2024 08:26 At the request of: BLAYNE PACKER Procedure: XR chest 2V EXAMINATION: XR chest 2V HISTORY: Cough COMPARISON: 12/24/2022 TECHNIQUE: PA and lateral FINDINGS: LUNGS: No significan t pulmonary parenchymal abnormalities. VASCULATURE: No increased pulmonary vasculature. PLEURA: No pneumotho rax, effusion, or pleural thickening. CARDIAC: No cardiome shaista or cardiac silhouette abnormality. MEDIASTINUM: No visi ble mass or adenopathy. BONES: No fracture o r visible bone lesion. OTHER: Negative. X R/XR chest 2V IMPRESSION: No acute cardiopulmo nary process Electronically authenticated by: OBIE TSE Date: 04/11/2024 08:26 Dictated By: Froy Tse M.D. Signed By: 04/11/24827 DD/ 5 TD/TT: Rough Rice Tender: MAGNESIUM Reviewed date:10/29/2023 08:50:38 PM Interpretation: Performing Lab: Notes/Report: [facility] , Magnesium 1.9 1.8-2.4 mg/dL Performing Lab: see note ML - [facility] LB RENAL FUNCTION PANEL Reviewed date:10/29/2023 08:50:38 PM Interpretation: Performing Lab: Notes/Report: [facility] , Sodium 141 136-145 mmol/L Potassium 3.9 3.5-5.1 mmol/L Chloride 103 98-107 mmol/L Carbon Dioxide 26.8 21.0-32.0 mmol/L Anion Gap 15.1 Glucose 167 74-106 mg/dL Blood Urea Nitrogen 26.0 7.0-18.0 mg/dL Creatinine 1.41 0.70-1.30 mg/dL Estimated GFR ( Tess >60 >=60 Estimated GFR (Non- Cherise 51 >=60 BUN Creatinine Ratio 18.4 Calcium 9.0 8.5-10.1 mg/dL Phosphorus 2.3 2.6-4.7 mg/dL Albumin Level 3.7 3.4-5.0 g/dL Performing Lab: see note ML - [facility] LB UA RANDOM W or MICROSCOPIC Reviewed date:10/29/2023 08:50:38 PM Interpretation: Performing Lab: Notes/Report: [facility] , Color Urine LT. YELLOW YELLOW Clarity Urine CLEAR CLEAR Specific [place] Urine 1.015 1.005-1.025 pH Urine 6.0 5.0-9.0 Protein Urine NEGATIVE NEG/TRACE mg/dL Glucose Urine UA NEGATIVE NEGATIVE mg/dL Bilirubin Urine NEGATIVE NEGATIVE Ketones Urine NEGATIVE NEGATIVE mg/dL Blood Urine NEGATIVE NEGATIVE Nitrite Urine NEGATIVE NEGATIVE Urobilinogen Urine 0.2 0.2-1.0 EU/dL Leukocyte Esterase Urine NEGATIVE NEGATIVE WBC Urine NONE SEEN NONE SEEN #/HPF RBC Urine NONE SEEN 0-2 #/HPF Bacteria Urine NONE SEEN NONE SEEN #/HPF Mucus Urine NONE SEEN NONE SEEN Squamous Epithelial Cell Urine FEW NONE/RARE #/LPF Cast Seen? SEEN NONE SEEN #/LPF Hyaline Casts Urine RARE Performing Lab: see note [facility] URIC ACID SERUM Reviewed date:10/29/2023 08:50:38 PM Interpretation: Performing Lab: Notes/Report: [facility] , Uric Acid 7.9 3.5-7.2 mg/dL Performing Lab: see note [facility] CBC no Diff (Hemogram) Reviewed date:10/29/2023 08:50:38 PM Interpretation: Performing Lab: Notes/Report: [facility] , White Blood Count 6.9 4.0-11.0 10 3/uL Red Blood Count 5.21 4.70-6.10 10 6/uL Hemoglobin 16.8 14.0-18.0 g/dL Hematocrit 47.7 42.0-54.0 % Mean Corpuscular Volume 91.6 80.0-94.0 fL Mean Corpuscular Hemoglobin 32.2 25.9-34.0 pg Mean Corpuscular HGB Conc 35.2 29.9-35.2 g/dL Red Cell Distribution Width 11.5 11.0-15.0 % Platelet Count 236 150-450 10 3/uL Mean Platelet Volume 8.9 9.5-13.5 fL Performing Lab: see note - [facility] LB Testosterone Reviewed date:11/24/2023 11:48:26 AM Interpretation: Performing Lab: Notes/Report: [facility] , Testosterone 628 264-916 ng/dL Adult male reference interval is based on a population of healthy nonobese males (BMI <30) between 19 and 39 years old. patrick Gatica.al. JCEM 2017,102;1913-2180 . PMID: 43214421. Performed at: [address] [id number] Bander: Logan Martinez PhD, Phone: [phone] Performing Lab: see note LC - [facility] LB Erythrocyte Sedimentation Ra te Reviewed date:03/17/2024 01:14:22 PM Interpretation: Performing Lab: Notes/Report: [facility] , Erythrocyte Sedimentation Rate 8 <=20 mm/hr Performing Lab: see note - [facility] LB PTH, Intact Reviewed date:10/30/2023 07:25:38 PM Interpretation: Performing Lab: Notes/Report: [facility] , PTH, Intact 91 15-65 pg/mL Performed at: [facility] Lab[address] [id number] Bander: Logan Martinez PhD, Phone: [phone] Performing Lab: see note - [facility] LB VITAMIN D 25 [place] Reviewed date:10/29/2023 08:50:38 PM Interpretation: Performing Lab: Notes/Report: [facility] , Vitamin D 40.8 <20 ng/mL Vit D deficient 20-<30 ng/mL Vit D insufficient 30-100 ng/mL Vit D sufficient >100 ng/mL Potential Toxicity Performing Lab: see note - [facility] LB URINE T PROTEIN CREAT RATIO Reviewed date:10/29/2023 08:50:38 PM Interpretation: Performing Lab: Notes/Report: [facility] , Total Protein Urine Random <6.0 <=11.9 mg/dL Creatinine Urine Random 15.18 20.00-300.00 mg/d L Performing Lab: see note - [facility] LB XR lumbar spine 2-3V Reviewed date:10/03/2023 06:11:28 PM Interpretation: Performing Lab: Notes/Report: Source Facility: [place] [address] [place] [address] XRay Report Signed Patient: SUKHDEEP SIMENTAL MR#: [id number] : 1965 Acct:[id number] Age/Sex: 58 / M ADM Date: 10/01/23 Loc: UMER Attending Dr: AlexStaff Physician Lomax Ordering Physician: Dillon Moss M.D. Date of Service: 10/01/23 Procedure(s): XR lumbar spine 2-3V Accession Number(s): [id number] cc: Blayne Packer M.D.; PhysicianDillon M.D. The [address] [id number] Patient Name: SUKHDEEP SIMENTAL MRN: [id number] date: 1965 Sex: M Assigned Patient Location: [facility] Current Patient Location: Accession/Order Number: [id number] Exam Date: 10/01/2023 14:10 Report Date: 10/03/2023 06:26 At the request of: NON-STAFF PHYSICIAN Procedure: XR lumbar spine 2-3V EXAMINATION: XR lumbar spine 2-3V HISTORY: Lumbar Region Radiculopathy M54.16 ; chronic low back pain COMPARISON: CT lumbar spine 04/03/2023 FINDINGS: BONES: Mechanical fusion L2-S1 via bilateral pedicle screws and rods; no appreciable hardware fracture or loosening. No bone fracture or significant listhesis. Mild-moderate curvature of lumbar spine. Posterior decompression L2-S1. DISC SPACES: Intervertebral disc spacers L2-L3, L3-L4. Moderate-marked narrowing L4-L5, L5-S1. PARASPINOUS: Negative. No paraspinous abnormality is seen. OTHER: Negative. XR/XR lumbar spine 2-3V IMPRESSION: 1. Grossly stable surgical changes and degenerative changes. No appreciable progression or acute abnormality. Electronically authenticated by: RAKESH RANDALL Date: 10/03/2023 06:26 Dictated By: Rakesh Randall M.D. Signed By: 10/03/23628 DD/ 5 TD/TT: Rough Rice Tender: [place] [address] XRay Report Signed Patient: SUKHDEEP SIMENTAL MR#: [id number] : 1965 Acct:[id number] Age/Sex: 58 / M ADM Date: 10/01/23 Loc: RAD Attending Dr: Evelin Moss M.D. Ordering Physician: Dillon Moss M.D. Date of Service: 10/01/23 Procedure(s): XR lum bar spine 2-3V Accession Number(s): [id number] cc: Blayne Packer M.D. ; Physician,Non-Staff Monie The [place] [address] Patient Name: SUKHDEEP SIMENTAL MRN: [id number] date: 1965 Sex: M Assigned Patient Location: [facility] Current Patient Location: Accession/Order Numb er: [id number] Exam Date: 10/01/2023 14:10 Report Date: 10/03/2023 06:26 At the request of: NON-STAFF PHYSICIAN Procedure: XR lumbar spine 2-3V EXAMINATION: XR lumb ar spine 2-3V HISTORY: Lumbar Angela on Radiculopathy M54.16 ; chronic low back pain COMPARISON: CT lumba r spine 04/03/2023 FINDINGS: BONES: Mechanical fu abhijeet L2-S1 via bilateral pedicle screws and rods; no appreciable hardware fracture or loosening. No bone fracture or significant listhesis. Mild-mode rate curvature of lumbar spine. Posterior decompression L2-S1. DISC SPACES: Intervertebral disc spacers L2-L3, L3-L4. Moderate-marked narrowing L4-L5, L5-S1. PARASPINOUS: Negativ e. No paraspinous abnormality is seen. OTHER: Negative. X R/XR lumbar spine 2-3V IMPRESSION: 1. Grossly stable surgical changes and degenerative changes. No appreciable progression or acute abnormality. Electronically authenticated by: RAKESH RANDALL Date: 10/03/2023 06:26 Dictated By: Rakesh Randall M.D. Signed By: 10/03/2329 DD/ 5 TD/TT: Rough Rice Tender: CT knee RT wo con Reviewed date:04/08/2024 09:52:06 PM Interpretation: Performing Lab: Notes/Report: Source Facility: [facility] [place] [address] [place] [address] CT Scan Report Signed Patient: SUKHDEEP SIMENTAL MR#: [id number] : 1965 Acct:[id number] Age/Sex: 58 / M ADM Date: 04/07/24 Loc: CT Attending Dr: Blayne Packer M.D. Ordering Physician: Blayne Packer M.D. Date of Service: 04/07/24 Procedure(s): CT knee RT wo con Accession Number(s): [id number] cc: Blayne Packer M.D. The [place] [id number] Patient Name: SUKHDEEP SIMENTAL MRN: [id number] date: 1965 Sex: M Assigned Patient Location: CT Current Patient Location: Accession/Order Number: [id number] Exam Date: 04/07/2024 10:15 Report Date: 04/08/2024 05:34 At the request of: BLAYNE PACKER Procedure: CT knee RT wo con EXAMINATION: CT knee RT wo con HISTORY: Right Knee Pain COMPARISON: XR knee right 03/17/2024 TECHNIQUE: Multi-planar CT images were created without and/or with IV contrast according to examination type. Dose reduction techniques were achieved by using automated exposure control and/or adjustment of mA and/or kV according to patient size and/or use of iterative reconstruction technique. FINDINGS: BONES: Total knee replacement and resurfacing of the patella. No appreciable hardware fracture or bone fracture. The proximal and distal ends of the medullary shafts within the femur and tibia were not included. SOFT TISSUES: No appreciable soft tissue swelling or inflammatory changes. Evaluation is slightly limited due to significant amount of metallic streak artifact. EFFUSION: Small amount of fluid within joint capsule cephalad to the patella. OTHER: Negative. CT/CT knee RT wo con IMPRESSION: 1. No appreciable hardware failure or bone fracture. Please note limitations above. 2. Small joint effusion/fluid within joint capsule cephalad to the patella. 3. No appreciable surrounding inflammatory changes/edema/evidence of infectious etiology Electronically authenticated by: RAKESH RANDALL Date: 04/08/2024 05:34 Dictated By: Rakesh Randall M.D. Signed By: 04/08/24 0537 DD/ 0534 TD/TT: Rough Rice Tender: The [address] [address] [address] Scan Report Signed Patient: SUKHDEEP SIMENTAL MR#: [id number] : 1965 Acct:[id number] Age/Sex: 58 / M ADM Date: 04/07/24 Loc: CT Attending Dr: Payton Packer M.D. Ordering Physician: Blayne Packer M.D. Date of Service: 04/07/24 Procedure(s): CT kne e RT wo con Accession Number(s): [id number] cc: Blayne Packer M.D. [place] [address] Patient Name: SUKHDEEP SIMENTAL MRN: [id number] date: 1965 Sex: M Assigned Patient Location: CT Current Patient Location: Accession/Order Numb er: [id number] Exam Date: 04/07/2024 10:15 Report Date: 04/08/2024 05:34 At the request of: BLAYNE PACKER Procedure: CT knee R T wo con EXAMINATION: CT knee RT wo con HISTORY: Right Knee Pain COMPARISON: XR knee right 03/17/2024 TECHNIQUE: Multi-murphy nick CT images were created without and/or with IV contrast according to examina tion type. Dose reduction techniques were achieved by using automated exposure control and/or adjustment of mA and/or kV according to patient size and/or use of iterative reconstruction technique. FINDINGS: BONES: Total knee replacement and resurfacing of the patella. No appreciable hardware fracture or bone fracture. The proximal and distal ends of the medullary shafts wit hin the femur and tibia were not included. SOFT TISSUES: No appreciable soft tissue swelling or inflammatory changes. Evaluation is slight ly limited due to significant amount of metallic streak artifact. EFFUSION: Small amou nt of fluid within joint capsule cephalad to the patella. OTHER: Negative. C T/CT knee RT wo con IMPRESSION: 1. No appreciable hardware failure or bone fracture. Please note limitations above. 2. Small joint effusion/fluid within joint capsule cephalad to the patella. 3. No appreciable surrounding inflammatory changes/edema/evidence of infectious etiology Electronically authenticated by: RAKESH RANDALL Date: 04/08/2024 05:34 Dictated By: Rakesh Randall M.D. Signed By: 04/08/24 0537 DD/ 0534 TD/TT: Rough Rice Tender: XR KNEE RT 3V Reviewed date:03/17/2024 01:14:22 PM Interpretation: Performing Lab: Notes/Report: Source Facility: [place] [address] [place] [address] XRay Report Signed Patient: SUKHDEEP SIMENTAL MR#: [id number] : 1965 Acct:[id number] Age/Sex: 58 / M ADM Date: 03/17/24 Loc: LAB Attending Dr: Blayne Packer M.D. Ordering Physician: Blayne Packer M.D. Date of Service: 03/17/24 Procedure(s): XR knee RT 3V Accession Number(s): [id number] cc: Blayne Packer M.D. [place] [address] Patient Name: SUKHDEEP SIMENTAL MRN: [id number] date: 1965 Sex: M Assigned Patient Location: LAB Current Patient Location: LAB Accession/Order Number: [id number] Exam Date: 03/17/2024 07:03 Report Date: 03/17/2024 12:49 At the request of: BLAYNE PACKER Procedure: XR knee RT 3V PROCEDURE: XR knee RT 3V HISTORY: Right knee pain, M25.561 COMPARISON: XR knee right 01/08/2020 FINDINGS: BONES: 1. Total knee replacement and resurfacing of patella. No appreciable hardware fracture or loosening. No bone fracture. Small ossifications/bone fragments favoring sequela of prior surgery. SOFT TISSUES:No visible soft tissue swelling. EFFUSION:None visible. OTHER: Negative. XR/XR knee RT 3V IMPRESSION: 1. Total right knee replacement without appreciable hardware failure or acute abnormality. Electronically authenticated by: RAKESH RANDALL Date: 03/17/2024 12:49 Dictated By: Rakesh Randall M.D. Signed By: 03/17/24 1255 DD/ 1249 TD/TT: Rough Rice Tender: [place] [address] XRay Report Signed Patient: SUKHDEEP SIMENTAL MR#: [id number] : 1965 Acct:[id number] Age/Sex: 58 / M ADM Date: 03/17/24 Loc: LAB Attending Dr: Payton Packer M.D. Ordering Physician: Blayne Packer M.D. Date of Service: 03/17/24 Procedure(s): XR kne e RT 3V Accession Number(s): [id number] cc: Blayne Packer M.D. The [place] [id number] Patient Name: SUKHDEEP SIMENTAL MRN: [id number] date: 1965 Sex: M Assigned Patient Location: LAB Current Patient Location: LAB Accession/Order Numb er: [id number] Exam Date: 03/17/2024 07:03 Report Date: 03/17/2024 12:49 At the request of: BLAYNE PACKER Procedure: XR knee RT 3V PROCEDURE: XR knee RT 3V HISTORY: Right knee pain, M25.561 COMPARISON: XR knee right 01/08/2020 FINDINGS: BONES: 1. Total knee replacement and resurfacing of patella. No appreciable hardware fracture or loosenin g. No bone fracture. Small ossifications/bone fragments favoring sequela of prior surgery. SOFT TISSUES:No visi ble soft tissue swelling. EFFUSION:None visible. OTHER: Negative. X R/XR knee RT 3V IMPRESSION: 1. Total right knee replacement without appreciable hardware failure or acute abnormality. Electronically authenticated by: RAKESH RANDALL Date: 03/17/2024 12:49 Dictated By: Rakesh Randall M.D. Signed By: 03/17/24 1251 DD/ 1249 TD/TT: Rough Rice Tender: PROF Thompson(COMP METB) Reviewed date:03/17/2024 01:14:22 PM Interpretation: Performing Lab: Notes/Report: [facility] , Sodium 143 136-145 mmol/L Potassium 4.6 3.5-5.1 mmol/L Chloride 108 98-107 mmol/L Carbon Dioxide 32.1 21.0-32.0 mmol/L Anion Gap 7.5 Glucose 101 74-106 mg/dL Blood Urea Nitrogen 21.0 7.0-18.0 mg/dL Creatinine 1.35 0.70-1.30 mg/dL Estimated GFR ( Tess >60 >=60 mL/min/1.73m 2 Estimated GFR (Non- Cherise 54 >=60 mL/min/1.73m 2 BUN Creatinine Ratio 15.6 Calcium 9.2 8.5-10.1 mg/dL Bilirubin Total 0.7 0.2-1.0 mg/dL Aspartate Amino Transferase 20 15-37 U/L Alanine Aminotransferase 33 16-63 U/L Alkaline Phosphatase 70 46-116 U/L Total Protein 7.0 6.4-8.2 g/dL Albumin Level 3.5 3.4-5.0 g/dL Globulin 3.5 Albumin Globulin Ratio 1.0 Performing Lab: see note ML - [facility] LB CRP Reviewed date:03/17/2024 01:14:22 PM Interpretation: Performing Lab: Notes/Report: [facility] , C Reactive Protein <0.50 <=0.50 mg/dL Performing Lab: see note ML - [facility] LB CBC AUTO DIFF Reviewed date:03/17/2024 01:14:22 PM Interpretation: Performing Lab: Notes/Report: [facility] , White Blood Count 5.9 4.0-11.0 10 3/uL Red Blood Count 5.11 4.70-6.10 10 6/uL Hemoglobin 16.3 14.0-18.0 g/dL Hematocrit 47.8 42.0-54.0 % Mean Corpuscular Volume 93.5 80.0-94.0 fL Mean Corpuscular Hemoglobin 31.9 25.9-34.0 pg Mean Corpuscular HGB Conc 34.1 29.9-35.2 g/dL Red Cell Distribution Width 11.6 11.0-15.0 % Platelet Count 215 150-450 10 3/uL Mean Platelet Volume 8.8 9.5-13.5 fL Neutrophils Percent Auto 51.6 43.0-75.0 % Lymphocytes Percent Auto 34.9 20.5-60.0 % Monocytes Percent Auto 8.8 1.7-12.0 % Eosinophils Percent Auto 3.7 0.9-7.0 % Basophils Percent Auto 0.8 0.2-2.0 % Immature Granulocytes Pct Auto 0.2 0.0-0.5 % Neutrophils Absolute Auto 3.1 1.4-6.5 10 3/uL Lymphocytes Absolute Auto 2.1 1.2-3.8 10 3/uL Monocytes Absolute Auto 0.5 0.3-0.8 10 3/uL Eosinophils Absolute Auto 0.2 0.0-0.7 10 3/uL Basophils Absolute Auto 0.1 0.0-0.1 10 3/uL Immature Granulocytes Abs Auto 0.01 0.00-0.03 10 3/uL Performing Lab: see note - [facility] LB Testosterone Reviewed date:12/04/2023 08:36:27 PM Interpretation: Performing Lab: Notes/Report: [facility] , Testosterone 556 264-916 ng/dL Adult male reference interval is based on a population of healthy nonobese males (BMI <30) between 19 and 39 years old. patrick Gatica.al. JCEM 2017,102;0181-9067 . PMID: [id number]. Performed at: [facility] Lab[address] [id number] Bander: Logan Martinez PhD, Phone: [phone] Performing Lab: see note - [facility] LB Reason For Referral No Information Medications Medication SIG (Take, Route, Frequency, Duration) Notes Start Date End Date Status Entresto 24-26 MG 1 tablet Orally Twic e a day for 30 day(s) 07/15/2024 Active Omeprazole 20 mg TAKE 1 CAPSULE BY [facility] TWICE DAILY 30 MINUTES BEFORE morning meal for 30 Activ e Irbesartan 300 mg TAKE 1/2 (ONE-HALF) OF A TABLET BY MOUTH ONCE DAILY for 60 Active Ketoconazole 2 % 1 application Plant Guide ally bid for 14 days 04/03/2024 Active Phentermine HCl 37.5 MG 1 capsule Orally Once a day 07/15/2024 Active Doxepin HCl 10 mg TAKE 1 TO 2 CAPSULES BY MOUTH EVERY 6 HOURS NEEDED FOR 30 DAYS for 30 Active traZODone HCl 150 MG 1 tablet at bedtime Orally Once a day for 30 days Active Doxycycline Monohydrate 100 MG 1 capsule Orally bid for 10 days 05/15/2024 Active Triamcinolone Acetonide 0.1 % 1 application Externally Twice a day for 30 07/31/2023 Active Bumetanide 1 mg TAKE 1 TABLET [facility] for 30 Active Testosterone Cypionate 200 mg/mL INJECT 3/4 mls INTRAMUSCULARLY EVERY 2 (TWO) weeks *MUST LAST 30 DAYS* for 30 02/25/2024 Active Doxazosin Mesylate 4 mg TAKE 1 TABLET BY MOUTH ONCE DAILY for 30 Active tiZANidine HCl 4 mg TAKE 2 TABLETS BY [facility] AT BEDTIME for 30 Active Adipex-P 37.5 MG 1 tablet before lo kfast Orally Once a day 06/15/2024 Active Simvastatin 10 mg TAKE 1 TABLET [facility] for 90 Active BD Luer-Meli Syringe 22G X 1-1/2 3 ML Use 1 (ONE) syringe as directed once a week for use with testosterone for 90 Active Tamsulosin HCl 0.4 mg TAKE 1 CAPSULE BY MOUTH DAILY for 30 Active oxyCODONE-Acetaminophen 10-325 MG TAKE 1 TABLET BY MOUTH EVERY 6 HOURS NEEDED *MUST LAST 30 DAYS* for 30 07/01/2024 Activ e Reglan 10 MG 1 tablet before meal s Orally Twice a day for 90 days Active Social History Tobacco Use: Social History Observation Description Date Details (start date - stop date) Never Smoker NA - NA Tobacco Use/Smoking Question Answer Notes Patient is a nonsmoker Alcohol Screen (Audit-C) Question Answer Notes Did you have a drink containing alcohol in the p ast year? No Points 0 Interpretation Negative AUDIT-C (Standard) Question Answer Notes Did you have a drink containing alcohol in the p ast year? No Points 0 Interpretation Negative Problems Problem Type SNOMED Code ICD Code Onset Dates Problem Status W/U Status Risk Notes Problem 72208914 Testicular hypofunction (E29.1) Active confirmed Problem 151821699 Spondylosis without myelopathy or radiculopathy, 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M47.816) Active confirmed Problem Degeneration of lumbar intervertebral disc (77959724) Other intervertebral disc degeneration, 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M51.36) Active confirmed Problem Hypertension (33022331) Hypertension (I10) Active confirmed Problem Edema (26598419) Edema (R60.9) Active confirmed Problem Pain of right knee region (finding) (742016454642143) Knee pain, right (M25.561) Active confirmed Problem Cellulitis (751699787) Cellulitis (L03.90) Active confirmed Problem Shingles (1087109) Shingles (B02.9) Active conf irmed Problem [id number] Acute saddle pulmonary embolism with acute cor pulmonale (I26.02) Active confirmed Problem Acute diarrhea (096566334) Acute diarrhea (R19.7) Active confirmed Problem Acute bronchiolitis (8924217) Acute bronchiolitis (J21.9) Active confirmed Problem Pneumococcal pneumonia (976556368) Left lower lobe consolidation (J18.1) Active confirmed Vital Signs Temperature 98.9 degrees Fahrenheit 04/03/2024 Blood pressure diastolic 92 mm Hg 07/15/2024 Height 69 in 07/15/2024 Blood pressure systolic 142 mm Hg 07/15/2024 Weight 272.0 lbs 07/15/2024 BMI 40.16 kg/m2 07/15/2024 Encounters Encounter Location Date Provider Diagnosis [facility] [address] [facility] [place] [address] 07/29/2023 BLAYNE HOY [facility] [address] [place] [address] 08/06/2023 BLAYNE HOY Spondylosis without myelopathy or radiculopathy, lumbar region M47.816 [facility] [address] [place] [address] 08/09/2023 BLAYNE HOY [facility] [address] [place] [address] 08/09/2023 BLAYNE HOY [facility] [address] [facility] [place] [place] [address] 09/06/2023 Abelardo Hoy Spondylosis without myelopathy or radiculopathy, lumbar region M47.816 [facility] [address] [place] [facility] [place] [address] 10/10/2023 Abelardo Hoy Spondylosis without myelopathy or radiculopathy, lumbar region M47.816 [facility] [address] [place] [facility] [place] [address] 10/15/2023 Abelardo Hoy Other intervertebral disc degeneration, lumbar region M51.36 [facility] [address] [place] [facility] [address] 10/29/2023 Abelardo Hoy [facility] [address] [place] [facility] [address] 11/11/2023 Abelardo Hoy Spondylosis without myelopathy or radiculopathy, lumbar region M47.816 [facility] [address] [facility] [place] [address] 11/21/2023 Abelardo Hoy 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 [facility] [address] [place] [facility] [place] [address] 11/24/2023 Abelardo Hoy [facility] [address] [facility] [place] [address] 12/03/2023 Abelardo Hoy [facility] [address] [place] [facility] [address] 12/04/2023 Abelardo Hoy [facility] [address] [place] [facility] [address] 12/23/2023 Estephanie Geri Spondylosis without myelopathy or radiculopathy, lumbar region M47.816 [facility] [address] [facility] [place] [address] 12/31/2023 Abelardo Hoy [facility] [address] [facility] [place] [address] 01/09/2024 Abelardo Hoy [facility] [address] [facility] [place] [address] 01/30/2024 Abelardo Hoy Spondylosis without myelopathy or radiculopathy, lumbar region M47.816 [facility] [address] [facility] [place] [address] 02/24/2024 Abelardo Hoy [facility] [address] [facility] [place] [address] 03/03/2024 Abelardo Hoy Spondylosis without myelopathy or radiculopathy, lumbar region M47.816 [facility] [address] [facility] [place] [address] 03/17/2024 Abelardo Hoy Knee pain, right M25.561 [facility] [address] [place] [facility] [place] [address] 04/06/2024 Abelardo Hoy Spondylosis without myelopathy or radiculopathy, lumbar region M47.816 and Acute non-recurrent sinusitis, unspecified location J01.90 [facility] [address] [place] [facility] [address] 04/08/2024 Abelardo Hoy Cough R05.9 [facility] [address] [place] [facility] [address] 04/11/2024 Abelardo Hoy [facility] [address] [place] [facility] [address] 04/27/2024 Abelardo Hoy [facility] [address] [place] [facility] [address] 05/15/2024 Abelardo Hoy [facility] [address] [place] [facility] [place] [address] 08/15/2023 BLAYNE HOY Other intervertebral disc degeneration, lumbar region M51.36 and Encounter for medication review Z79.899 [facility] [address] [place] [facility] [place] [address] 07/31/2023 BLAYNE HOY Cellulitis L03.90 [facility] [address] [place] [facility] [place] [address] 09/17/2023 Abelardo Hoy Other intervertebral disc degeneration, lumbar region M51.36 [facility] [address] [place] [facility] [place] [address] 11/25/2023 Abelardo Hoy 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 and Spondylosis without myelopathy or radiculopathy, lumbar region M47.816 [facility] [address] [place] [facility] [address] 12/31/2023 Abelardo Hoy Other intervertebral disc degeneration, lumbar region M51.36 [facility] [address] [place] [facility] [address] 02/07/2024 Abelardo Hoy Other intervertebral disc degeneration, lumbar region M51.36 [facility] [address] [place] [address] 05/15/2024 Aeblardo Hoy Knee pain, right M25.561 [facility] [address] [place] [address] 06/15/2024 Abelardo Hoy Spondylosis without myelopathy or radiculopathy, lumbar region M47.816 [facility] [address] [place] [address] 07/15/2024 Abelardo Hoy Edema R60.9 and Hypertension I10 [facility] [address] [place] [address] 03/16/2024 Abelardo Hoy Knee pain, right M25.561 [facility] [address] [place] [address] 04/03/2024 Abelardo Hoy Acute non-recurrent sinusitis, unspecified location J01.90 and Nasal congestion R09.81 Assessments Encounter Date Diagnosis (ICD Code) Assessment Notes Treatment Notes Treatment Clinical Notes Section Notes 08/15/2023 Other intervertebral disc degeneration, 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ICD-10 - M51.36) 08/15/2023 Encounter for medication review (ICD-10 - Z79.899) 07/31/2023 Cellulitis (ICD-10 - L03.90) 09/17/2023 Other intervertebral disc degeneration, 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ICD-10 - M51.36) 11/25/2023 Testicular hypofunction (ICD-10 - E29.1) level was dfin but wa day after injection - 11/25/2023 Spondylosis without myelopathy or radiculopathy, 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ICD-10 - M47.816) needs weith loss 12/31/2023 Other intervertebral disc degeneration, 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ICD-10 - M51.36) 02/07/2024 Other intervertebral disc degeneration, 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ICD-10 - M51.36) stil neds weight loss 03/16/2024 Knee pain, right (ICD-10 - M25.561) 04/03/2024 Acute non-recurrent sinusitis, unspecified location (ICD-10 - J01.90) Rest and drink more liquids, especially water. You may use a humidifier or vaporizer to help keep the drainage moist. Tuvr-gqp-gafyowp Nasal Saline may help the stuffy and runny nose. Use Ibuprofen and or Tylenol as needed for fever, chills, body aches or pain. Children 5 years old should not be given hiau-dns-pvhydge cough and cold medications such as guaifenesin and dextromethorphan. If you're over age 5, you may try lwbv-kdz-fgebmwj cold medications such as guaifenesin and dextromethorphan, or multi-symptom cold reliever such as Dayquil to help reduce the symptoms. Antibiotics have been prescribed. You should take these until completed and follow the directions. Antibiotics can sometimes cause upset stomach, and in rare cases, serious allergic reactions or serious gastrointestinal problems. If you start having severe abdominal pain, severe vomiting, or bloody diarrhea, you should be reevaluated by your physician or urgent care immediately. Follow up with your Primary Care Provider or return to clinic if symptoms do not improve within 3-5 days 05/15/2024 Knee pain, right (ICD-10 - M25.561) see n Dr Hutton - nurse [phone] feel like infection coming back 06/15/2024 Spondylosis without myelopathy or radiculopathy, 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ICD-10 - M47.816) 07/15/2024 Edema (ICD-10 - R60.9) 07/15/2024 Hypertension (ICD-10 - I10) 08/06/2023 Spondylosis without myelopathy or radiculopathy, 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ICD-10 - M47.816) 09/06/2023 Spondylosis without myelopathy or radiculopathy, 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ICD-10 - M47.816) 10/10/2023 Spondylosis without myelopathy or radiculopathy, 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ICD-10 - M47.816) 10/15/2023 Other intervertebral disc degeneration, 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ICD-10 - M51.36) 11/11/2023 Spondylosis without myelopathy or radiculopathy, 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ICD-10 - M47.816) 11/21/2023 Testicular hypofunction (ICD-10 - E29.1) 12/23/2023 Spondylosis without myelopathy or radiculopathy, 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ICD-10 - M47.816) 01/30/2024 Spondylosis without myelopathy or radiculopathy, 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ICD-10 - M47.816) 03/03/2024 Spondylosis without myelopathy or radiculopathy, 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ICD-10 - M47.816) 03/17/2024 Knee pain, right (ICD-10 - M25.561) 04/06/2024 Spondylosis without myelopathy or radiculopathy, 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ICD-10 - M47.816) 04/08/2024 Cough (ICD-10 - R05.9) 04/06/2024 Acute non-recurrent sinusitis, unspecified location (ICD-10 - J01.90) 04/03/2024 Nasal congestion (ICD-10 - R09.81) Plan Of Treatment Pending Test Test Name Order Date CMP (COMPLETE METABOLIC PANEL) 4 CULTURE, STOOL 09/05/2022 HEMOGLOBIN A1C (GLYCO) 06/17/2023 LIPID PANEL (CHOL/TRIG/HDL/LDL) 06/17/19 24 CBC WITH DIFF 06/17/2023 PSA, PROSTATE-SPECIFIC ANTIGEN 4 URIC ACID 06/17/2023 XR Chest PA and Lateral (Routine CXR) * 12/24/2022 BNP 07/15/2024 C. DIFF PCR 09/05/2022 GI PANEL (PCR) 09/05/2022 PROF 14(COMP METB) 07/15/2024 SED RATE WESTERGREN 03/16/2024 SPUTUM GRAM STAIN 12/24/2022 TESTOSTERONE, TOTAL 11/21/2023 TESTOSTERONE, TOTAL 11/25/2023 THYROID PANEL (T4/TSH/FREE T3) 4 Insurance Providers Payer Name Payer Address Payer Phone Subscriber Number Group Number Insured Name Patient Relationship to Insured Coverage Start Date Coverage End Date [employer] [address] [address] [place] [address] [id number] Lena Simental Spouse - patient is the spouse of the insured Medications Administered Medication Instructions Date of Administration Dosage Notes Kenalog-40 07/05/2023 120 mg 120 Ketorolac Tromethamine 07/05/2023 60 mg 60 Orphenadrine Citrate 07/05/2023 60 mg 60 Rocephin 09/21/2022 1 g Medical (General) History Medical History History ICD Code Benign essential tremor G25.0 Arthritis M19.90 Hypogonadism male E29.1 DDD (degenerative disc disease), lumbosa cral M51.37 Acute pulmonary embolism I26.99 Bilateral kidney stones N20.0 Apnea, sleep G47.30 Surgical History Surgery Date(Month/Year) Lumbar and sacral fusion 12/07/22 knee surgery 04/19 ankle surgery 05/2014 gastric sleeve 05/16 Hospitalization History Reason Date(Month/Year) see above
== END 2024-07-16 08:20 | disposition home or self-care (01) ==
LOC: US 08:19
PROVIDERS: PCP Family Medicine; Visit Provider Urology
DX: N28.89 Other specified disorders of kidney and ureter (principal); N20.0 Calculus of kidney; N28.1 Cyst of kidney, acquired
CPT/HCPCS: 74018; 76775

== ENCOUNTER 2024-11-10 09:02 | Outpatient (OUT) | payer OTHER, SELFPAY ==
--- OUTSIDE RECORDS SUMMARY | 2024-11-10 09:16 | XMS_ITS | CCD ---
Author Organization [facility] Care Team Providers Care Animal Control Officer Name Role Phone Blayne Isabel Primary Care Provider [phone] SUZANNE ACEVEDO Attending Unavailable BLAYNE ISABEL Primary Care Unavailable ARSENIO BHATTI Referring Unavailable BLAYNE ISABEL Primary Care Unavailable ARSENIO BHATTI Referring Unavailable BLAYNE ISABEL Primary Care Unavailable ROSE SOTELO Attending Unavailable BLAYNE ISABEL Primary Care Unavailable BLAYNE ISABEL Consulting Unavailable Blayne Isabel Primary Care Provider [phone] Blayne Isabel Primary Care Provider Octavio Becker Attending Provider Blayne Isabel MD Primary Care Provider OCTAVIO MCCLELLAN Referring Unavailable BLAYNE ISABEL Primary Care Unavailable OCTAVIO MCCLELLAN Referring Unavailable BLAYNE ISABEL Primary Care Unavailable OCTAVIO MCCLELLAN Referring Unavailable BLAYNE ISABEL Primary Care Unavailable OCTAVIO MCCLELLAN Admitting Unavailable OCTAVIO MCCLELLAN Attending Unavailable BLAYNE ISABEL Primary Care Unavailable AGUSTIN FISCHER Consulting Unavailable LEISA PERRY Referring Unavailable BLAYNE ISABEL Primary Care Unavailable DORIE RUSH Consulting Unavailable SAI OWENS Attending Unavailable SAI OWENS Admitting Unavailable UNKNOWN, PHYSICIAN Referring Unavailable UNKNOWN, PHYSICIAN Primary Care Unavailable PAYTON HELM Attending Unavailable PAYTON HELM Admitting Unavailable Oumou Weinstein Unavailable STEPH Lowry Attending Provider [phone] Estephanie Lowry Unavailable STEPH Lowry Attending Provider [phone] NO FAMILY, PHYSICIAN Primary Care Provider Unava ilable DO Gianni Nelson Attending Provider [phone] Estephanie Lowry Admitting Unavailable Estephanie Lowry Attending Unavailable NO FAMILY, PHYSICIAN Primary Care Unavailable NO FAMILY, PHYSICIAN Primary Care Unavailable Gianni Nelson Admitting Unavailable Gianni Nelson Attending Unavailable Blayne Isabel Primary Care Physician LIDIA ., DR [...] Care Unavailable MISC, DR GARCIA Consulting Unavailable REJI, OUMOU Admitting Unavailable REJI, OUMOU Attending Unavailable HOY ., DR CISNEROS Consulting Unavailable HOY ., DR CISNEROS Primary Care Unavailable MISC, DR GARICA Consulting Unavailable MISC, DR GARCIA Admitting Unavailable MISC, DR GARCIA Attending Unavailable HOY ., DR CISNEROS Primary Care Unavailable HOY ., DR CISNEROS Attending Unavailable HOY ., DR CISNEROS Referring Unavailable HOY ., DR CISNEROS Consulting Unavailable HOY ., DR CISNEROS Primary Care Unavailable HOY ., DR CISNEROS Admitting Unavailable REJI, OUMOU Attending Unavailable REJI, OUMOU Admitting Unavailable HOY ., DR CISNEROS [...] Care Unavailable MISC, DR GARCIA Consulting Unavailable REJI, OUMOU Admitting Unavailable REJI, OUMOU Attending Unavailable REJI, OUMOU Consulting Unavailable HOY ., DR CISNEROS Primary Care Unavailable HOY ., DR CISNEROS Consulting Unavailable HOY ., DR CISNEROS Admitting Unavailable HOY ., DR CISNEROS Primary Care Unavailable HOY ., DR CISNEROS Attending Unavailable WEST, DR OBIE Swartz Consulting Unavailable JASPER SCHRADER Consulting Unavailable HOY ., DR CISNEROS Consulting Unavailable HOY ., DR CISNEROS Admitting Unavailable HOY ., DR CISNEROS Primary Care Unavailable HOY ., DR CISNEROS Attending Unavailable ZIEBER, DR AUSTIN Jj Consulting Unavailable HOY ., DR CISNEROS Attending Unavailable HOY ., DR CISNEROS Consulting Unavailable HOY ., DR CISNEROS Primary Care Unavailable HOY ., DR CISNEROS Admitting Unavailable REJI, OUMOU Attending Unavailable REJI, OUMOU Consulting Unavailable HOY ., DR CISNEROS Primary Care Unavailable REJI, OUMOU Admitting Unavailable MISC, DR GARCIA Consulting [...] DR OBIE Swartz Consulting Unavailable MISC, DR GARCIA Consulting Unavailable MISC, [...] HOY ., DR CISNEROS Primary Care Unavailable Blayne Isabel MD Primary Care Provider [phone] [facility], THOMAS Attending Unavailable QUINCY THOMAS Admitting Unavailable HOY, BLAYNE M Primary Care Unavailable LULU OVIEDO Consulting UnavailBlayne Poole MD Primary Care Provider [phone] BLAYNE ISABEL M Primary Care Unavailable QUINCY, THOMAS Referring Unavailable MAITE GALLOWAY Referring Unavailable HOY, BLAYNE M Primary Care Unavailable HOY, BLAYNE M Primary Care Unavailable MAITE GALLOWAY Referring Unavailable Blayne Isabel MD Primary Care Provider [phone] AHSAN FLYNN Attending Unavailable HOY, BLAYNE M Referring Unavailable HOY, BLAYNE M Primary Care Unavailable AHSAN FLYNN Attending Unavailable HOY, BLAYNE M Referring Unavailable HOY, BLAYNE M Primary Care Unavailable AHSNA FLYNN Attending Unavailable HOY, BLAYNE M Referring Unavailable HOChad BLAYNE M Primary Care Unavailable Blayne Isabel MD Primary Care Provider [phone] PAYTON HELM Referring Unavailable PAYTON HELM Attending Unavailable PAYTON HELM Attending Unavailable Cecelia MURILLO Attending Unavailable MURILLOCecelia R Attending Unavailable MURILLO, Cecelia R Attending Unavailable MURILLO, Cecelia R Attending Unavailable Unavailable Unavailable Unavailable Allergies Allergy Classification Reported Allergen(s) Allergy Type Date of Onset Reaction(s) Facility (16 sources) Povidone-Iodine; Translations: [povidone iodine topical] Drug Allergy 9 [facility] (11 sources) Povidone-Iodine; Translations: [povidone-iodine] Drug Allergy 9 [facility] (9 sources) soap; Translations: [soap] Allergy to substance 9 [facility] (14 sources) Chlorhexidine; Translations: [CHLORHEXIDINE] Drug Allergy [facility] (14 sources) Iodine; Translations: [IODINE] Drug Allergy 9 [facility] Work Phone: (15 sources) Loratadine; Translations: [loratadine] Drug Allergy 2 [facility] (1 source) Chlorhexidine Drug Allergy [facility] (1 source) Povidone-Iodine; Translations: [Betadine] Drug Allergy [facility] Medications Current Medications Medication Drug Class(es) Dates Sig (Normalized) Sig (Original) acetaminophen 500 mg oral tablet (14 sources) Start: 01-02-2022 End: 01-10-2023 take 2 tablets by mouth every eight hours acetaminophen (TYLENOL EXTRA STRENGTH) 500 mg tablet TAKE TWO TABLETS BY MOUTH EVERY 8 HOURS 01/02/2022 Active Comment on above: Take 2 tablets by mo inh every 8 hours. acetaminophen 325 mg / [...] 04/11/2019 04/14/2019 Active take 1 tablet by juan carlos every six hours HYDROcodone-Acetaminophen 5-325 MG 1 tab let as needed Orally every 6 hrs Active acetaminophen 325 mg / oxyCODONE hydrochloride 10 mg oral tablet (16 sources) Opioid Agonist Start: 10-10-2022 take 1 tablet by mouth every six hours as needed for pain acetaminophen-oxycodone 325 mg-10 mg oral tablet 1 tab(s), Oral, q6hr as needed for pain, Refill(s) 0 Start Date: 10/10/22 Status: Ordered Repeat number: 1 Start: 05-25-2021 End: 06-01-2021 oxyCODONE-acetaminophen (PER COCET) [...] tablet Start: 11-06-2013 take 1 tablet by juan carlos th every four hours as needed oxyCODONE-acetaminophen (PERCOCET) 5-325 mg tablet Take 1 tablet by mouth every 4 hours as needed. 20 tablet 0 11/06/2013 Active Comment on above: Take 1 tablet by juan carlos th every 4 hours as needed. [id number] actuat albuterol 0.09 mg/actuat metered dose inhaler (11 sources) beta2-Adrenergic Agonist Start: 01-07-2021 albuterol (PROVENTIL [...] 1 ampule amLODIPine 10 mg oral tablet (13 sources) Dihydropyridine Calcium Channel Merlyn Start: 12-12-2019 [...] once daily. apixaban 5 mg oral tablet (9 sources) Factor Xa Inhibitor take 2 tablets [...] / diphenoxylate hydrochloride 2.5 mg oral tablet (8 sources) Anticholinergic, Cholinergic Muscarinic Antagonist, Antidiarrheal Start: 09-12-2018 take 1 tablet by mouth three times daily diphenoxylate-atrop ine (LOMOTIL) 2.5-0.025 mg per tablet Take 1 tablet by mouth 3 (three) times a day. 0 09/12/2018 Active 60 actuat budesonide 0.16 mg/actuat / formoterol fumarate 0.0045 mg/actuat metered dose inhaler (8 sources) Corticosteroid, beta2-Adrenergic Agonist Start: 01-01-2021 take 2 puff(s) by inhalation twice daily SYMBICORT 160-4.5 mcg/actuation inhaler Inhale 2 puffs 2 (two) times a day. 01/01/2021 Active bumetanide 1 mg oral tablet (20 sources) Loop Diuretic Start: 11-07-2021 take 1 tablet by mouth once daily bumetanide 1 mg Tab 1 mg = 1 tab(s), Oral, Daily, Refills(s) 0 Start Date: 03/19/22 Status: Ordered Repeat number: 1 Comment on above: Take 1 tablet by juan carlos th once daily. cholecalciferol 0.125 mg oral tablet (4 sources) Vitamin D take 1 tablet by mouth in the morning cholecalciferol, vitamin D3, 5,000 units tablet Take 1 tablet (5,000 Units total) by mouth in the morning. Active cyclobenzaprine hydrochloride 10 mg oral tablet (9 sources) Muscle Relaxant Start: 05-24-2021 cyclobenzaprine (FLEXERIL) tablet 10 mg Start: 09-29-2018 take 2 tablets by mo uth once daily cyclobenzaprine (FLEXERIL) 10 mg tablet Take 20 mg by mouth nightly. 11 09/29/2018 Active diclofenac sodium 75 mg delayed release oral tablet (8 sources) Nonsteroidal Anti-inflammatory Drug Start: 09-09-2018 take [...] on above: Take 1 capsule by mo uth two times a day. doxazosin 4 mg oral tablet (20 sources) alpha-Adrenergic Merlyn Start: 02-15-2021 take 1 tablet by mouth once daily doxazosin 4 mg Tab 4 mg = 1 tab(s), Oral, Daily, Refills(s) 0 Start Date: 03/19/22 Status: Ordered Repeat number: 1 Start: 05-05-2020 End: 05-08-2021 take 4 mg by mouth twice daily Doxazosin Active 4 MG P O Twice daily May 05, 2020 1:00am Comment on above: Take 4 mg by mouth. doxepin hydrochloride 10 mg oral capsule (13 sources) Tricyclic Antidepressant Start: 11-30-19 doxepin 10 mg Cap Refills(s) 0 Start Date: 02/04/23 Status: Ordered Repeat number: 1 doxycycline hyclate 100 mg oral capsule (10 sources) Tetracycline-class Drug take 1 capsule by [...] 60 mg ergocalciferol 1.25 mg oral capsule (10 sources) Provitamin D2 Compound Start: 01-05-2021 ergocalciferol (DRISDOL) 1,250 mcg (50,000 unit) capsule Take 50,000 Units by mouth. 01/05/2021 Active Start: 01-05-2021 take 1 capsule by mo [facility] every week vitamin D (ERGOCALCIFEROL) 1.25 MG (24708 UT) CAPS capsule Indications: Vitamin D deficiency Take 1 capsule by mouth once a week for 8 doses 8 capsule 0 01/05/2021 Active famotidine 20 mg oral tablet (18 sources) Histamine-2 Receptor Antagonist Start: 11-07-2021 take 1 tablet by mouth once daily famotidine (PEPCID) 20 mg tablet Take 20 mg by mouth nightly. 11/07/2021 Active Start: 05-24-2021 famotidine (PE PCID) tablet 20 mg FeroSul 325 mg oral tablet (5 sources) Start: 03-19-2022 take 1 tablet by mouth twice daily FeroSul 325 mg oral tablet 325 mg = 1 tab(s), Oral, BID, Refills(s) 0 Start Date: 03/19/22 Status: Ordered Repeat number: 1 Start: 03-19-2022 take 1 tablet by juan carlos twice daily FeroSul 325 mg oral tablet 325 mg = 1 tab(s), Oral, BID, Refills(s) 0 Start Date: 03/19/22 Status: Ordered Start: 03-19-2022 FeroSul 325 mg oral tablet Refills(s) 0 Start Date: 03/19/22 Status: Ordered ferrous sulfate (20 sources) Start: 11-07-2023 take 1 tablet by juan carlos th twice daily Ferrous Sulfate Active 1 TAB PO Twice daily November 07, 2023 12:00am FreeTextSi tablet Orally twice a day; Note: Source Status: Taking; Provider: Reji Coello ( ) Start: 10-31-2022 take 1 tablet by juan carlos every twelve hours FEROSUL 325 mg (65 mg iron) tablet Take 1 tablet by mouth every 12 (twelve) hours. 10/31/2022 Active Start: 11-07-2021 take 1 tablet by juan carlos th in the morning, then take 1 tablet by mouth at bedtime FeroSuL 325 mg (65 mg iron) tablet Take 1 tablet (325 mg total) by mouth in the morning and 1 tablet (325 mg total) before bedtime. 11/07/2021 Active take 1 tablet by juan carlos th twice daily Ferrous Sulfate 325 (65 Fe) MG 1 tablet Orally twice a day Active Comment on above: Take 1 tablet by juan carlos th every 12 (twelve) hours. gabapentin 100 mg oral capsule (1 source) Anti-epileptic Agent Start: 2021 gabapentin (NEURONTIN) capsule 100 mg glimepiride 4 mg oral tablet (20 sources) Sulfonylurea Start: 2019 End: 2023 take [...] mg hydrOXYzine hydrochloride 25 mg oral tablet (17 sources) Antihistamine Start: 11-06-2022 take 1 tablet by mouth four times daily as needed hydrOXYzine HCl (ATARAX) 25 mg tablet TAKE 1 TABLET BY MOUTH FOUR TIMES DAILY NEEDED MUST LAST 30 DAYS 11/06/2022 Active Comment on above: TAKE 1 TABLET BY JUAN CARLOS TH FOUR TIMES DAILY NEEDED MUST LAST 30 DAYS indomethacin 50 mg oral capsule (13 sources) Nonsteroidal Anti-inflammatory Drug indomethacin (INDOCIN) 50 [...] Orally Once a day for 60 days 02/15/2020 Active Start: 02-15-2020 End: 05-08-2021 take 1 tablet by mouth once daily Avapro 300 mg Tab 300 mg = 1 tab(s), Oral, Daily, Refills(s) 0, High blood pressure Start Date: 02/15/20 Status: Ordered Repeat number: 1 take 1 tablet by juan carlos th every twenty-four hours Irbesartan 150 MG 1 tablet Orally Once a day Active Comment on above: 1/2 tablet Orally On ce a day for 60 days 24 hr levomilnacipran 40 mg extended release oral capsule (8 sources) Serotonin and Norepinephrine Reuptake Inhibitor take 1 capsule by mouth every twenty-four hours in the morning levomilnacipran (FETZIMA) 40 mg capsule,extended release 24 hr Take 40 mg by mouth in the morning. Active LORazepam 1 mg oral tablet (15 sources) Benzodiazepine Start: 023 take 1 tablet by mouth three times daily Ativan 1 mg Tab mg tab(s), Oral, TID, Refills(s) 0 Start Date: 03/19/22 Status: Ordered take 1 tablet by juan carlos th every six hours as needed LORazepam (ATIVAN) 1 mg tablet Take 1 tablet (1 mg total) by mouth every 6 (six) hours as needed. Active LORazepam (ATIVA N) 0.5 mg tab Take by mouth three times daily as needed. 0 Active take 1 tablet by juan carlos th every twenty-four hours Ativan 1 MG 1 tablet at bedtime as neede d Orally Once a day Not-Taking Comment on above: Take by mouth three times daily as needed. metFORMIN hydrochloride 500 mg oral tablet (8 sources) Biguanide take 1 tablet by mouth in the morning metFORMIN (GLUCOPHAGE) 500 mg tablet Take 1 tablet by mouth in the morning and 1 tablet before bedtime. Active metoclopramide 10 mg oral tablet (20 sources) Dopamine-2 Receptor Antagonist Start: 03-19-19 take 1 tablet by mouth twice daily metoclopramide 10 mg Tab 10 mg = 1 tab(s), Oral, BID, Refills(s) 0 Start Date: 03/19/22 Status: Ordered Repeat number: 1 Comment on above: Take 10 mg by [...] daily 0 Active Multivitamin, Therapeutic w/ Minerals (5 sources) Start: 02-23-2020 take 1 tablet by mouth once daily Multivitamin, Therapeutic w/ Minerals 1 tab(s), Oral, Daily, Prophylaxis Start Date: 02/23/20 Status: Ordered Repeat number: 1 Start: 02-23-2020 take 1 tablet by juan carlos th once daily Multivitamin, Therapeutic w/ Minerals 1 tab(s), Oral, Daily, Prophylaxis Start Date: 02/23/20 Status: Ordered naloxone hydrochloride 40 mg/ml nasal spray (11 sources) Opioid Antagonist Start: 12-20-2022 naloxone 4 mg/actuation nasal spray (NARCAN) Use [...] available naloxone 4 mg/actuation nasal spray (NARCAN) (2 sources) Start: 12-20-2022 naloxone 4 mg/actuation nasal spray (NARCAN) Use 1 spray in one nostril as needed for overdose. May repeat every 2 to 3 min in alternating nostrils until medical assistance is available 2 Each 12/20/2022 Active Start: 12-20-2022 naloxone 4 mg/ actuation nasal spray (NARCAN) Use 1 spray in one nostril as needed for overdose. May repeat every 2 to 3 min in alternating nostrils until medical assistance is available 2 Each 0 12/20/2022 Active omeprazole 20 mg delayed release oral capsule (20 sources) Proton Pump Inhibitor Start: 01-16-2022 take 1 capsule by mouth twice daily omeprazole 20 mg Cap-DR 20 mg = 1 cap(s), Oral, BID, Refills(s) 0 Start Date: 03/19/22 Status: Ordered Repeat number: 1 Comment on above: Take 1 capsule by mo [facility] twice daily. 2 ml ondansetron 2 mg/ml injection (10 sources) Serotonin-3 Receptor Antagonist Start: 05-24-2021 ondansetron (ZOFRAN) injection 4 mg Start: 09-29-2018 ondansetron OD T (ZOFRAN-ODT) 4 mg disintegrating tablet Dissolve 1 tablet on tongue as needed. 0 09/29/2018 Active oxaprozin (8 sources) Nonsteroidal Anti-inflammatory Drug oxaprozin (DAYPRO ORAL) [...] Comment on above: Take 1 tablet by [facility] every 3 hours as needed for pain for up to 7 days. Take 1 tablet by juan carlos th every 6 hours as needed for pain for up to 7 days. pantoprazole 40 mg delayed release oral tablet (20 sources) Proton Pump Inhibitor take 1 tablet by mouth in the morning pantoprazole (PROTONIX) 40 mg EC tablet Take 1 tablet (40 mg total) by mouth in the morning. Active take 40 mg by mouth once daily P antoprazole Sodium (PROTONIX PO) Take 40 mg by mouth daily 0 Active Phenazopyridine (8 sources) Pyridium Active phentermine hydrochloride 37.5 mg oral tablet (12 sources) Sympathomimetic Amine Anorectic Start: 11-07-19 24 take 1 tablet by mouth once daily Phentermine (Adipex-P) 37.5 mg tablet Active 37.5 MG PO Daily November 07, 2023 12:00am take 1 capsule by [facility] once daily in the morning phentermine (ADIPEX-P) [...] Blood glucose Start Date: 02/23/20 Status: Ordered Repeat number: 1 take 2 tablets by [facility] in the morning pioglitazone (ACTOS) 15 mg tablet Take 2 tablets (30 mg total) by mouth in the morning. Active predniSONE 20 mg oral tablet (2 sources) Start: 04-12-2019 End: 04-17-2019 take 2 tablets by mouth once daily predniSONE (DELTASONE) 20 MG tablet Take 2 tablets by mouth daily for 5 days 10 tablet 0 04/12/2019 04/17/2019 Active pregabalin 100 mg oral capsule (9 sources) Start: 12-07-2020 End: 05-08-2021 take 1 [...] Refills(s) 0 Start Date: 05/24/16 Status: Ordered Repeat number: 1 Comment on above: Take 1 tablet by juan carlos th once daily. 5 ml sodium chloride 9 mg/ml injection (3 sources) Start: 05-24-2021 0.9 % sodium chloride infusion Start: 05-24-2021 sodium chlorid e flush 0.9 % injection 5-40 mL spironolactone 100 mg oral tablet (13 sources) Aldosterone Antagonist Start: 01-01-2021 End: 05-25-2021 take 1 tablet by mouth in the morning spironolactone (ALDACTONE) 100 mg tablet Take 1 tablet (100 mg total) by mouth in the morning. 01/01/2021 Active Start: 01-01-2021 take 1 tablet by juan carlos th once daily spironolactone (ALDACTONE) 100 mg tablet Take 100 mg by mouth daily. 0 01/01/2021 Active sucralfate 1000 mg oral tablet (20 sources) Aluminum Complex Start: 03-19-2022 take 1 tablet by mouth twice daily sucralfate 1 g Tab 1 gm = 1 tab(s), Oral, BID, Refills(s) 0 Start Date: 03/19/22 Status: Ordered Repeat number: 1 Start: 03-19-2022 sucralfate 1 g Tab Refills(s) 0 Start Date: 03/19/22 Status: Ordered Start: 10-08-2021 take 1 tablet by juan carlos th at bedtime sucralfate (CARAFATE) 1 gram tablet Take 1 tablet (1 g total) by mouth in the morning and 1 tablet (1 g total) at noon and 1 tablet (1 g total) in the evening and 1 tablet (1 g total) before bedtime. 10/08/2021 Active tamsulosin hydrochloride 0.4 mg oral capsule (20 sources) alpha-Adrenergic Merlyn Start: 03-03-2021 take 1 capsule by mouth once daily tamsulosin 0.4 mg Cap 0.4 mg = 1 cap(s), Oral, Daily, Refills(s) 0 Start Date: 03/19/22 Status: Ordered Repeat number: 1 Comment on above: Take 1 capsule by [facility] once daily. temazepam 15 mg oral capsule (9 sources) Benzodiazepine Start: 01-12-2021 take 1 capsule [...] Active Testosterone Cypionate 200 mg/mL intramuscular solution (5 sources) Start: 03-19-19 inject 200 mg by intramuscular injection every other week Testosterone Cypionate 200 mg/mL intramuscular solution 200 mg = 1 mL, IntraMuscular, q2wk, Refills(s) 0 Start Date: 03/19/22 Status: Ordered Repeat number: 1 Start: 03-19-2022 inject 200 mg by int ramuscular injection every other week Testosterone Cypionate 200 mg/mL intramuscular solution 200 mg = 1 mL, IntraMuscular, q2wk, Refills(s) 0 Start Date: 03/19/22 Status: Ordered tiZANidine 4 mg oral tablet (20 sources) Central alpha-2 Adrenergic Agonist Start: 05-05-2020 tiZANidine (ZANAFLEX ) 4 MG tablet 4 mg 1-2 every night 0 05/05/2020 Active Start: 05-05-2020 take 8 mg by mouth o nce daily at bedtime Tizanidine Active 8 MG PO Daily at bedtime May 05, 2020 1:00am Start: 02-15-2020 take 1 tablet by juan carlos every eight hours Zanaflex 4 mg Tab 4 mg = 1 tab(s), Oral, q8hr, Refills(s) 0, Sleep Start Date: 02/15/20 Status: Ordered Repeat number: 1 Start: 08-21-2018 take 2 tablets by mo [facility] once daily tiZANidine (ZANAFLEX) 4 mg tablet Take 2 tablets (8 mg total) by mouth nightly. 0 08/21/2018 Active tizanidine HCl ( ZANAFLEX ORAL) daily at bedtime. Active tizanidine HCl ( ZANAFLEX ORAL) daily at bedtime. 0 Active tizanidine HCl ( ZANAFLEX ORAL) tiZANidine (Omar flex) 4 MG tablet Every 8 hours. 0 Active Comment on above: daily at bedtime. traZODone hydrochloride 150 mg oral tablet (20 sources) Serotonin Reuptake Inhibitor Start: 10-31-2022 traZODONE 150 mg Tab Refills(s) 0 Start Date: 02/04/23 Status: Ordered Repeat number: 1 Start: 04-17-2021 take 3 tablets by mo [facility] once daily traZODone (DESYREL) 50 mg tablet Take 3 tablets (150 mg total) by mouth nightly. 04/17/2021 Active Start: 04-17-2021 take 1 tablet by juan carlos th once daily traZODone (DESYREL) 50 mg tablet Take 1 tablet (50 mg total) by mouth nightly. 0 04/17/2021 Active Zinc (3 sources) ZINC PO Take by mouth daily 0 Active Completed/Discontinued Medications Medication Drug Class(es) Dates Sig (Normalized) Sig (Original) amitriptyline hydrochloride 50 mg oral tablet (20 sources) Tricyclic Antidepressant Start: 05-05-2020 End: 11-07-2023 [...] sources) gamma-Aminobutyric Acid-ergic Agonist Start: 021 End: 024 take 10 mg by mouth once daily [...] ringers infusion carvedilol 25 mg oral tablet (18 sources) alpha-Adrenergic Merlyn, beta-Adrenergic Merlyn Start: End: [...] as directed. dapagliflozin 5 mg oral tablet (16 sources) Sodium-Glucose Cotransporter 2 Inhibitor Start: End: take 1 tablet by mouth once daily Dapagliflozin Propanediol (Farxiga) 5 mg tablet Discontinued 5 MG PO Daily May 05, 2020 1:00am November 07, 2023 11:12am 1 ml dexamethasone phosphate 10 mg/ml injection (1 source) Corticosteroid Start: End: dexamethasone (PF) (DECADRON) injection 10 mg 0.5 ml dulaglutide 1.5 mg/ml auto-injector (20 sources) GLP-1 Receptor Agonist Start: End: Dulaglutide [...] Drug, Cyclooxygenase Inhibitor Start: 04-11-19 End: 04-11-19 20 ketorolac (TORADOL) injection 60 mg lansoprazole 30 [...] on above: Use 1 Drop in the [facility] once daily. 72 hr scopolamine 0.0139 [...] on above: [facility] traMADol hydrochloride 50 mg [...] Comment on above: Take 1 tablet by juan carlos th once daily. Vancomycin (2 sources) Glycopeptide [...] every 2 hours. Take 1 tablet by juan carlos th twice daily. Problems Active Problems Problem Classification Problem Date Documented Date Episodic/Chronic Allergic reactions (5 sources) Environmental allergy 05-24-2016 Episodic Anxiety disorders (19 sources) Anxiety disorder, unspecified; Translations: [Anxiety] Onset: 2 12-07-2022 Chronic Blindness and vision defects (1 source) Unspecified visual loss; Translations: [UNSPECIFIED VISUAL LOSS] Onset: 2 Chronic Calculus of urinary tract (20 sources) History of calculus of kidney; Translations: [Personal history of urinary calculi] Onset: 2 12-28-2020 Episodic Complication of device; implant or graft (14 sources) Retained ureteric stent; Translations: [Infection and [...] 0 02-02-2020 Chronic Disorders of lipid metabolism (20 sources) Pure hypercholesterolemia, unspecified; Translations: [Hyperlipidemia] Onset: 2 12-07-2022 Chronic Diverticulosis and diverticulitis (1 source) Diverticulosis of large intestine without perforation or abscess without bleeding; Translations: [DVRTCLOS LG INT NO PERF/ABSC W/O BL] Onset: 3 Chronic Esophageal disorders (19 sources) Gastro-esophageal reflux disease without esophagitis; Translations: [Gastroesophageal reflux disease] Onset: 2 12-07-2022 Chronic Essential hypertension (20 sources) Essential hypertension; Translations: [Hypertensive disorder] Onset: 0 02-02-2020 Chronic Fluid and electrolyte disorders (6 sources) Hyperkalemia; Translations: [HYPERKALEMIA] Onset: 2 Resolved: 2 Episodic Genitourinary symptoms and ill-defined conditions (17 sources) Dysuria; Translations: [Dysuria] Onset: 2 Episodic Hyperplasia of prostate (19 sources) Benign prostatic hyperplasia; Translations: [Benign prostatic hyperplasia without lower urinary tract symptoms] Onset: 3 12-07-2022 Chronic Hypertension with complications and secondary hypertension (20 sources) Chronic kidney disease due to hypertension; Translations: [Hypertensive chronic kidney disease with stage 1 through stage 4 chronic kidney disease, or unspecified chronic kidney disease] Onset: 2 Resolved: 2 Chronic Osteoarthritis (1 source) Unspecified osteoarthritis, unspecified site; Translations: [UNSPECIFIED OSTEOARTHRITIS UNS SITE] Onset: 2 Chronic Other acquired deformities (1 source) Spondylolisthesis, lumbar region; Translations: [Lumbar adjacent segment disease with spondylolisthesis] Onset: 3 Episodic Other connective tissue disease (1 source) Presence of unspecified artificial knee joint; Translations: [PRESENCE UNS ARTIFICIAL KNEE JOINT] Onset: 3 Chronic Other connective tissue disease (1 source) Presence of artificial knee joint, bilateral; Translations: [PRESENCE ARTIFICIAL KNEE JNT BILAT] Onset: 2 Chronic Other connective tissue disease (2 sources) Presence of right artificial knee joint; Translations: [Presence of right artificial knee joint] Onset: 5 Chronic Other connective tissue disease (2 sources) Muscle weakness (generalized); Translations: [Muscle weakness (generalized)] Onset: 2 Episodic Other diseases of kidney and ureters (5 sources) Secondary hyperparathyroidism of renal origin; Translations: [Secondary hyperparathyroidism (of renal origin)] Onset: 2 Resolved: 2 Chronic Other diseases of kidney and ureters (2 sources) Disorder of kidney and/or ureter; Translations: [Other specified disorders of kidney and ureter] Onset: 3 Chronic Other diseases of kidney and ureters (5 sources) Renal mass 03-19-2022 Chronic Other diseases of kidney and ureters (4 sources) Other specified disorders of kidney and ureter; Translations: [OTHER SPEC DISORDERS KIDNEY URETER] Onset: 3 Chronic Other diseases of kidney and ureters (1 source) Acquired renal cyst without neoplastic change; Translations: [Cyst of kidney, acquired] Onset: 5 Episodic Other diseases of kidney and ureters (1 source) Cyst of kidney 08-07-2024 Episodic Other endocrine disorders (4 sources) Male hypogonadism 10-10-2022 Chronic Other gastrointestinal disorders (2 sources) History of sleeve gastrectomy; Translations: [Bariatric surgery status] Onset: 2 Episodic Other gastrointestinal disorders (9 sources) Altered bowel function; Translations: [Change in bowel habit] Onset: 3 Episodic Other gastrointestinal disorders (4 sources) Acute diarrhea 10-10-2022 Episodic Other hereditary and degenerative nervous system conditions (20 sources) Essential tremor; Translations: [Essential tremor] Onset: 3 10-10-2022 Chronic Other infections; including parasitic (3 sources) Personal history of other infectious and parasitic diseases; Translations: [PERSONAL HX OTH INF AND PARASITIC DZ] Onset: 3 Episodic Other injuries and conditions due to external causes (1 source) Traumatic AND/OR non-traumatic injury; Translations: [Injury] Episodic Other nervous system disorders (1 source) Other chronic pain; Translations: [OTHER CHRONIC PAIN] Onset: 2 Chronic Other nervous system disorders (4 sources) Neurogenic claudication 10-10-2022 Episodic Other nervous system disorders (1 source) Other acute postprocedural pain; Translations: [Post-op pain] Onset: 3 Episodic Other non-traumatic joint [...] calories; Translations: [MORBID SEVERE OBES D/T EXCESS KENYA] Onset: 2 Chronic Other nutritional; endocrine; and [...] chemistry] Onset: 2 Episodic Pulmonary heart disease (4 sources) 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 Residual codes; unclassified (9 sources) Sleep apnea 05-25-2016 Chronic Comment on above: has cpap but hasnt w orn in 3 years because he is claustrophobic Residual codes; unclassified (1 source) Obstructive sleep apnea (adult) (pediatric); Translations: [OBSTRUCTIVE SLEEP APNEA] Onset: 2 Chronic Residual codes; unclassified (17 sources) Obstructive sleep apnea syndrome; Translations: [Obstructive sleep apnea (adult) (pediatric)] Onset: 2 12-07-2022 Chronic Residual codes; unclassified (1 source) Edema of lower extremity; Translations: [Fluid retention in legs] Episodic Residual codes; unclassified (1 source) Swelling - edema - symptom; Translations: [Edema] Onset: 0 02-02-2020 Episodic Residual codes; unclassified (5 sources) Insomnia 05-24-2016 Episodic Residual codes; unclassified (3 sources) Other specified postprocedural states; Translations: [OTH SPECIFIED POSTPROCEDURAL STATES] Onset: 3 Episodic Spondylosis; intervertebral disc disorders; other back problems (20 sources) Degeneration of lumbar intervertebral disc; Translations: [Lumbar spondylosis] Onset: 2 10-10-2022 Chronic Spondylosis; intervertebral disc disorders; other back problems (20 sources) Acute back pain with sciatica; Translations: [Chronic low back pain] Onset: 2 12-28-2020 Episodic Unclassified (1 source) Infection and inflammatory reaction [...] [LOW BACK PAIN, UNSPECIFIED] Onset: 2 Unclassified (3 sources) Patient encounter status 02-04-2023 Past or Other Problems Problem Classification Problem Date Documented Date Episodic/Chronic Abdominal pain (4 sources) Unspecified abdominal pain; Translations: [UNSPECIFIED ABDOMINAL PAIN] Onset: 2 Episodic Cardiac dysrhythmias (5 sources) Tachycardia; Translations: [Tachycardia, unspecified] Onset: 1 01-25-2021 Episodic Chronic kidney disease (20 sources) Chronic kidney disease stage 4; Translations: [Chronic kidney disease, stage 4 (severe)] Onset: 2 Resolved: 5 Chronic Chronic kidney disease (12 sources) Chronic kidney disease; Translations: [Chronic kidney disease, stage III (moderate)] Deficiency and other anemia (4 sources) Anemia, unspecified; Translations: [ANEMIA UNSPECIFIED] Onset: 2 Episodic Deficiency and other anemia (17 sources) Iron deficiency anemia; Translations: [Iron deficiency anemia, unspecified] Onset: 3 12-07-2022 Episodic Inflammation; infection of eye (except that caused by tuberculosis or sexually transmitteddisease) (6 sources) Herpes simplex iridocyclitis; Translations: [Herpesviral iridocyclitis] Onset: 4 Resolved: 3 12-09-2013 Episodic Malaise and fatigue (4 sources) Other fatigue; Translations: [OTHER FATIGUE] Onset: 2 Episodic Other aftercare (1 source) 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; Translations: [OTH MCC CURRENT DRUG THERAPY] Onset: 2 Episodic Other connective tissue disease (1 source) Arthrodesis status; Translations: [ARTHRODESIS STATUS] Onset: 2 Episodic Other connective tissue disease (17 sources) History of lumbar fusion; Translations: [Arthrodesis status] Onset: 3 12-07-2022 Episodic Other diseases of kidney and ureters (17 sources) Secondary hyperparathyroidism; Translations: [Secondary hyperparathyroidism of renal origin] Onset: 3 Resolved: 3 11-21-2022 Chronic Other eye disorders (6 sources) Corneal edema; Translations: [Unspecified corneal edema] Onset: 4 Resolved: 3 12-10-2013 Episodic Other gastrointestinal disorders (1 source) Bariatric surgery status; Translations: [BARIATRIC SURGERY STATUS] Onset: 2 Episodic Other lower respiratory disease (5 sources) Dyspnea; Translations: [Dyspnea, unspecified] Onset: 1 01-25-2021 Episodic Other lower respiratory disease (4 sources) Shortness of breath; Translations: [SHORTNESS OF BREATH] Onset: 2 Episodic Other lower respiratory disease (1 source) Personal history of pneumonia (recurrent); Translations: [PERSONAL HX OF PNEUMONIA RECURRENT] Onset: 2 Episodic Pulmonary heart disease (20 sources) H/O: pulmonary embolus; Translations: [Personal history of pulmonary embolism] Onset: 2 12-28-2020 Episodic Residual codes; unclassified (1 source) Pain in buttock Episodic Skin and subcutaneous tissue infections (1 source) Cellulitis, unspecified; Translations: [CELLULITIS UNSPECIFIED] Onset: 2 Episodic Results Test Name Value Interpretation Reference Range Facility Ambulatory Visit Summaryon 0 08-07-2024 Ambulatory Visit Summary Ambulatory Visit Summary SUKHDEEP SIMENTAL :1965 Visit Date:08/07/2024 Ambulatory Visit Instructions Your Diagnosis Renal cyst Kidney stone BPH with urinary obstruction Tests Performed XR Abdomen 1 View -- Results Pending -- Please visit your patient portal for your results or contact your primary care physician. Your Care Team Attending Physician - LIDIA JACOBS, Cecelia Jj Primary Care Physician - Blayne Isabel MD This Is Your Medications List [...] Cystoscopy, Lumbar spinal fusion, Meniscectomy. Discharge Vitals Temperature (Temporal Artery) 37 ???C Heart Rate (Peripheral) 79 Respiratory Rate 16 Blood Pressure 132/89 Height 175 cm Height 69 in Weight 122.4 kg Weight 269.845 lb BMI 39.97 What to do next Scheduled Follow-Up Appointments Saturday2025 10:45 AM EDT With: Cecelia MURILLO MD Where: [facility] [address] [place] [address]- You Need to Schedule the Following Appointments Follow Up with Cecelia MURILLO MD, URL When: Where: [facility] [place] [address]- Medications What How Much When Instructions Unchanged acetaminophen-oxycodon e (acetaminophen-oxycodo ne 325 mg-10 mg oral tablet) 1 Tablets By Mouth Every 6 hours as needed for as needed for pain Contact prescribing physician if questions or concerns Unchanged bumetanide (bumetanide 1 mg Tab) 1 Tablets By Mouth Every day Contact prescribing physician if questions or concerns Unchanged doxazosin (doxazosin 4 mg Tab) 1 Tablets By Mouth Every day Contact prescribing physician if questions or concerns Unchanged doxepin (doxepin 10 mg Cap) Contact prescribing physician if questions or concerns Unchanged ferrous sulfate (FeroSul 325 mg oral tablet) 1 Tablets By Mouth 2 times a day Contact prescribing physician if questions or concerns Unchanged irbesartan (Avapro 300 mg Tab) 1 Tablets By Mouth Every day Contact prescribing physician if questions or concerns Unchanged metoclopramide (metoclopramide 10 mg Tab) 1 Tablets By Mouth 2 times a day Contact prescribing physician if questions or concerns Unchanged multivitamin with minerals (Multivitamin, Therapeutic w/ Minerals) 1 Tablets By Mouth Every day Contact prescribing physician if questions or concerns Unchanged omeprazole (omeprazole 20 mg Cap-DR) 1 Capsules By Mouth 2 times a day Contact prescribing physician if questions or concerns Unchanged pioglitazone (pioglitazone 30 mg Tab) 1 Tablets By Mouth Every day Contact prescribing physician if questions or concerns Unchanged simvastatin 10 Milligram By Mouth Once a day (at bedtime) Contact prescribing physician if questions or concerns Unchanged sucralfate (sucralfate 1 g Tab) 1 Tablets By Mouth 2 times a day Contact prescribing physician if questions or concerns Unchanged tamsulosin (tamsulosin 0.4 mg Cap) 1 Capsules By Mouth Every day Contact prescribing physician if questions or concerns Unchanged testosterone (Testosterone Cypionate 200 mg/ mL intramuscular solution) 1 Milliliter Intramuscular Every other week Contact prescribing physician if questions or concerns Unchanged tizanidine (Zanaflex 4 mg Tab) 1 Tablets By Mouth Every 8 hours Contact prescribing physician if questions or concerns Unchanged trazodone (traZODONE 150 mg Tab) Contact prescribing physician if questions or concerns Allergies Betadine (Rash) loratadine (rash hives) Problems Ongoing - Any problem that you are currently receiving treatment for. Acute diarrhea Anxiety Benign essential tremor BMI 40.0-44.9, adult Bowel habit changes BPH with urinary obstructio (more content not included)... Normal [facility] Urology Office/Clinic Noteon 08-07-2024 Urology Office/Clinic Note Urology Office/Clinic Note Chief Complaint 18 month f/u with SÁNCHEZ and KUB HPI Staff 58 year old male patient here for follow up with KUB/SÁNCHEZ. KUB/SÁNCHEZ done 07/16/24 @ [facility]. Previous dx: renal mass, kidney stone, prostate cancer screening. S/P L ESWL/L stent removal/L ureteroscopy/holmium laser litho of large left ureteral calculus/stone basket extraction done 07/13/21 *flomax 0.4 mg qd from PCP Denies any urinary concerns at this time. History of Present Illness Tests reviewed: reviewed UA, PSA, SÁNCHEZ, KUB. I have reviewed the previous health record information and history for this patient from Dr. Murillo I have reviewed and verified the staff [...] See HPI. Physical Exam Vitals & Measurements T: 37 ???C(Temporal Artery) HR: 79(Peripheral) RR: 16 BP: 132/89 HT: 69 in HT: 175 cm WT: 269.845 lb WT: 122.4 kg BMI: 39.97 General Appearance: alert, no distress, well nourished, well developed male. Assessment/Plan 1. Renal cyst (N28.1: Cyst of kidney, acquired) Seen in consult on 06/29/21 at [facility]. 11/14/21 - BUN 19.0. Crea 1.62. eGFR 44. SÁNCHEZ 12/21/21 - 1.7 x 1.3 x 1.1 cm hypervascular hypoechoic cortical medullary mass. CT AP wo con 03/12/22 - 4 right renal hypodensities, the largest 3 cm, bilateral renal nonobstructive stones measuring up to 8 mm and stable mild bilateral adrenal nodularities. CT AP w/o Con 07/06/22 - multiple stable cortical hypodensities the largest measuring 2.8cm, cysts are suspected CT AP w/o Con 01/30/23 - mild nonspecific bilateral perinephric fat stranding, originating from the lower pole of the Rt kidney is a 2.7 cm cyst. SÁNCHEZ 07/16/24 [facility] - Cyst at the RIP 3.1 x 3.0 x 3.0 cm. Of note, pt was to have CT prior to visit. Pt states he is unable to afford a CT unfortunately. Prior possible mass has been confirmed as a simple cyst. No further imaging is warranted. 2. Kidney stone (N20.0: Calculus of kidney) Largest stone in the past was 22 mm. Pt states he has had multiple surgeries to treat stones. S/p L ESWL/L stent removal/L ureteroscopy/holmium laser litho of large left ureteral calculus/stone basket extraction 07/13/21. SÁNCHEZ 12/21/21 - Multiple echogenic foci in the right kidney, the largest measuring up to 1 (no measurement given) nonobstructing nephrolithiasis. 3 cm cortical cyst. Echogenic foci in the left kidney measuring up to 4 mm, nonobstructing nephrolithiasis. X-ray Ab 12/21/21 - no suspicious abdominal findings. Evaluation is slightly limited by patient body evidence. CT AP wo con 03/12/22 - bilateral renal nonobstructive stones measuring up to 8 mm and stable mild bilateral adrenal nodularities. CT AP w/o Con 07/06/22 - Bilateral stones. CT AP w/o Con 01/30/23 - bilateral stones, largest is within the RLP measuring approx 0.9 cm. KUB 07/16/24 [facility] - question of a subtle 8 mm stone at the RLP. SÁNCHEZ 07/16/24 [facility] - at least one suspected renal stone is present the RLP up to 8 mm. Pt states he passes 10-12 small stones every couple of months. States they are red in color. Recommended ESWL for R sided stone however up to pt on timeline. Pt states he has a lot going on right now and wishes to schedule in the future. He understands that the stone can decide to pass at anytime and cause severe pain. Also recommended met w/up given his extensive history of stones. -F/up in 1 year with KUB -Complete met w/up 3. BPH with urinary obstruction (N40.1: Benign prostatic hyperplasia with lower urinary tract symptoms) PSA 06/21/23 - 1.11 Baseline PSA. On Flomax 0.4 mg qd through primary care. -PSA prior to next visit Follow-up With When Contact Information LIDIA JACOBS, Cecelia Jj, URL [address] [place] [address]- Additional Instructions: 1 year w/ KUB and PSA Patient Education Dietary Guidelines to Help Prevent Kidney Stones I, Jacqueline Calero, personally scribed for Dr. Murillo on 08/07/2024 11:53:15. . Documentation recorded by the scribe, Jacqueline Calero, accurately reflects the services(s) I performed and decisions made by me. Authenticated by Dr. Murillo on 08/07/2024 12:00:12. Problem List/Past Medical History Ongoing Acute diarrhea Anxiety Benign essential tremor BMI 40.0- (more content not included)... Normal [facility] Comment on above: Result Comment: Elec tronically Signed By: Cecelia MURILLO MD\.br\Date and Time Signed: 08/07/24 12:00 EDT\.br\Electronically Co-Signed By: Jacqueline Calero\.br\Date and Time Co-Signed: 08/07/24 11:53 EDT\.br\Electronically Co-Signed By: Jacqueline Calero\.br\Date and Time Co-Signed: 08/07/24 11:56 EDT\.br\Electronically Co-Signed By: Jacqueline Calero\.br\Date and Time Co-Signed: 08/07/24 11:57 EDT [facility] [place] [place] [place] [facility] [place] [facility] Patient Letter [facility] [place] June 22, 2024 [place] [address] : 1965 Dear Mr. Sukhdeep Simental, You missed your scheduled appointment on: 06/22/2024. [...] any future cancellations. Sincerely, [place] [address] ext.3 [facility] Follow-Upon 06-17-2024 Follow-Up [id number] Sukhdeep Simental F 1965 M Date Provider Department Center 06/17/2024 [facility]O Family History Problem Relation Age of Onset Dementia Mother Esophageal cancer Father Alcohol abuse Father Family Status - Relation Status Age at Mother Alive Father Level of Service:17093 [place] OFFICE/OUTPATIENT ESTABLISHED SF MDM 10 MIN [facility] 36on 05-18-2024 36 Will need to see the patient as soon as possible repeat x-rays and blood test to further evaluate as he has had previous infections and has high risk for recurrent infections and 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 PT WILL COME IN TODAY [facility] BASIC METABOLIC PANELon 03-2 Anion gap [Moles/Vol] 12 mmol/L Normal 7-20 [facility] Comment on above: Performed By: #### L [id number] #### [facility] (Yodio) [address] [place] [address] Calcium [Mass/Vol] 9.9 mg/dL Normal 8.6-10.3 [facility] Comment on above: Performed By: #### L [id number] #### [facility] (BEimport2) [address] [place] [address] Chloride [Moles/Vol] 105 mmol/L Normal 98-107 [facility] Comment on above: Performed By: #### L [id number] #### [facility] ([facility]) [address] [place] [address] CO2 [Moles/Vol] 27 mmol/L Normal 21-31 [facility] Comment on above: Performed By: #### L [id number] #### [facility] ([facility]) [address] [place] [address] Creatinine [Mass/Vol] 1.42 mg/dL High 0.70-1.30 [facility] Comment on above: Performed By: #### L [id number] #### [facility] ([facility]) [address] [place] [address] GLOMERULAR FILTRATION RATE ML/MIN/1.73 SQ M.PREDICTED 56.6 mL/min/1.73m*2 Low >60.0 [facility] Comment on above: Result Comment: The [facility]???s estimated glomerular filtration rate (eGFR) will [...] of individuals. Performed By: #### L [id number] #### [facility] ([facility]) [address] [place] [address] Glucose [Mass/Vol] 102 mg/dL High 70-100 [facility] Comment on above: Performed By: #### L [id number] #### [facility] ([facility]) [address] [place] [address] Potassium [Moles/Vol] 4.4 mmol/L Normal 3.5-5.1 [facility] Comment on above: Performed By: #### L [id number] #### [facility] ([facility]) [address] [place] [address] Sodium [Moles/Vol] 140 mmol/L Normal 136-145 [facility] Comment on above: Performed By: #### L [id number] #### [facility] ([facility]) [address] [place] [address] Urea nitrogen [Mass/Vol] 23 mg/dL Normal 7-25 [facility] Comment on above: Performed By: #### L [id number] #### [facility] ([facility]) [address] [facility] [place] [address] UREA NITROGEN/CREATININE (MASS RATIO) IN SER/PLAS 16.2 Normal [facility] Comment on above: Performed By: #### L [id number] #### [facility] ([facility]) [address] [place] [address] C-REACTIVE PROTEINon 025 C REACTIVE PROTEIN (MG/L) IN SER/PLAS <5.4 Normal <=5.0 [facility] Comment on above: Result Comment: Test ing performed using a new methodology, turbidimetry. Normal ranges have been updated. Old normal range was <8 mg/L. Performed By: #### L [id number] #### [facility] ([facility]) [address] [facility] [place] [address] CBC WITH AUTO DIFFERENTIALon 05-18-2024 Basophils (Bld) [#/Vol] 0.06 10*3/uL Normal 0.00-0.20 [facility] Comment on above: Performed By: #### L [id number] #### [facility] ([facility]) [address] [facility] [place] [address] Basophils/100 WBC (Bld) 0.7 % Normal 0.0-1.0 [facility] Comment on above: Performed By: #### L [id number] #### [facility] ([facility]) [address] [place] [address] Eosinophils (Bld) [#/Vol] 0.15 10*3/uL Normal 0.00-0.50 [facility] Comment on above: Performed By: #### L [id number] #### [facility] ([facility]) [address] [place] [address] Eosinophils/100 WBC (Bld) 1.8 % Normal 0.0-6.0 [facility] Comment on above: Performed By: #### L [id number] #### [facility] ([facility]) [address] [place] [address] Erythrocyte distribution width (RBC) [Ratio] 11.9 % Normal 11.5-15.0 [facility] Comment on above: Performed By: #### L [id number] #### [facility] ([facility]) [address] [place] [address] ERYTHROCYTE MEAN CORPUSCULAR HEMOGLOBIN CONCENTRATION (G/DL) BY AUTOMATED 34.5 g/dL Normal 32.0-35.0 [facility] Comment on above: Performed By: #### L [id number] #### [facility] ([facility]) [address] [place] [address] Hematocrit (Bld) [Volume fraction] 47.8 % Normal 39.0-50.0 [facility] Comment on above: Performed By: #### L [id number] #### [facility] ([facility]) [address] [place] [address] Hemoglobin (Bld) [Mass/Vol] 16.5 g/dL Normal 13.0-17.0 [facility] Comment on above: Performed By: #### L [id number] #### [facility] ([facility]) [address] [place] [address] Immature granulocytes (Bld) [#/Vol] 0.03 10*3/uL Normal 0.00-0.20 [facility] Comment on above: Performed By: #### L [id number] #### [facility] (BEAKER) [address] [place] [address] Immature granulocytes/100 WBC (Bld) 0.4 % Normal 0.0-1.0 [facility] Comment on above: Performed By: #### L [id number] #### [facility] ([facility]) [address] [place] [address] Lymphocytes (Bld) [#/Vol] 1.80 10*3/uL Normal 1.20-4.00 [facility] Comment on above: Performed By: #### L [id number] #### [facility] ([facility]) [address] [address] Lymphocytes/100 WBC (Bld) 21.8 % Normal 20.0-45.0 [facility] Comment on above: Performed By: #### L [id number] #### [facility] ([facility]) [address] [place] [address] MCH (RBC) [Entitic mass] 31.5 pg Normal 27.0-33.0 [facility] Comment on above: Performed By: #### L [id number] #### [facility] ([facility]) [address] [address] MCV (RBC) [Entitic vol] 91.4 fL Normal 82.0-98.0 [facility] Comment on above: Performed By: #### L [id number] #### [facility] ([facility]) [address] [place] [address] Monocytes (Bld) [#/Vol] 0.66 10*3/uL Normal 0.10-1.00 [facility] Comment on above: Performed By: #### L [id number] #### [facility] ([facility]) [address] [place] [address] Monocytes/100 WBC (Bld) 8.0 % Normal 5.0-12.0 [facility] Comment on above: Performed By: #### L [id number] #### [facility] ([facility]) [address] [place] [address] Neutrophils (Bld) [#/Vol] 5.56 10*3/uL Normal 1.60-7.60 [facility] Comment on above: Performed By: #### L [id number] #### [facility] ([facility]) [address] [place] [address] Neutrophils/100 WBC (Bld) 67.3 % Normal 40.0-72.0 [facility] Comment on above: Performed By: #### L [id number] #### [facility] ([facility]) [address] [place] [address] NRBC (PER 100 WBCS) BY AUTOMATED COUNT 0.0 % Normal 0 [facility] Comment on above: Performed By: #### L [id number] #### [facility] ([facility]) [address] [place] [address] PLATELETS (10*3/UL) IN BLOOD AUTOMATED COUNT 247 10*3/uL Normal 150-400 [facility] Comment on above: Performed By: #### L [id number] #### [facility] ([facility]) [address] [place] [address] RBC (Bld) [#/Vol] 5.23 10*6/uL Normal 4.20-5.70 [facility] Comment on above: Performed By: #### L [id number] #### [facility] ([facility]) [address] [place] [address] WBC (Bld) [#/Vol] 8.26 10*3/uL Normal 4.00-10.60 [facility] Comment on above: Performed By: #### L [id number] #### [facility] ([facility]) [address] [place] [address] Follow-Upon 05-18-2024 Follow-Up [id number] Sukhdeep Simental 1965 M Date Provider Department Center 05/18/2024 PAYTON GRIFFITH MP ORTHO MPOKATHIA Family History Problem Relation Age of Onset Dementia Mother Esophageal cancer Father Alcohol abuse Father Family Status - Relation Status Age at Mother Alive Father Level of Service:18615 [place] OFFICE/OUTPATIENT ESTABLISHED MOD MDM 30 MIN () Reason for Visit and Comments: Pain [136] - Swelling starts 2 months ago, started swimming about a month ago and it only made his knee worse Edema [[id number]] - Swelling starts 2 months ago, started swimming about a month ago and it only made his knee worse Normal [facility] Labon 05-18-2024 Lab [id number] Sukhdeep Simental 1965 M Date Provider Department Center 05/18/2024 2244-[facility] MP LAB RESOURCE MP DRAW Medical Pavi Family History Problem Relation Age of Onset Dementia Mother Esophageal cancer Father Alcohol abuse Father Family Status - Relation Status Age at Mother Alive Father Normal [facility] SEDIMENTATION RATEon 025 SEDIMENTATION RATE, ERYTHROCYTE 5 mm/hr Normal <20 [facility] Comment on above: Performed By: #### L [id number] #### [facility] ([facility]) [address] [place] [address] 36on 05-15-2024 36 Patient feels like h is infection is back. Right knee swelling and pain but no fever. He was seen by Dr. Isabel and he put him on oral antibiotics and wanted Dr. Helm know in case he wants him to come in and be exam. Normal [facility] Erythrocyte distribution wid th Auto (RBC) [Ratio]on 10-29-2023 Erythrocyte distribution width (RBC) [Ratio] 11.5 % 11.0-15.0 [facility] Estimated glomerular filtrat ion rate (GFR) non- Americanon 10-29-2023 GFR/1.73 sq M.predicted among non-blacks MDRD (S/P/Bld) [Vol rate/Area] 51 mL/min/{1.73_m2} Low >=60 [facility] Hematocrit Auto (Bld) [Volum e fraction]on 10-29-2023 Hematocrit (Bld) [Volume fraction] 47.7 % 42.0-54.0 [facility] Hemoglobin [Mass/volume] in Bloodon 10-29-2023 Hemoglobin (Bld) [Mass/Vol] 16.8 g/dL 14.0-18.0 [facility] Laboratory - Chemistry and C hemistry - challengeon 10-29-2023 Albumin [Mass/Vol] 3.7 g/dL 3.4-5.0 [facility] Calcium [Mass/Vol] 9.0 mg/dL 8.5-10.1 [facility] Chloride [Moles/Vol] 103 mmol/L 98-107 [facility] CO2 [Moles/Vol] 26.8 mmol/L 21.0-32.0 [facility] Creatinine [Mass/Vol] 1.41 mg/dL High 0.70-1.30 [facility] GFR/1.73 sq M.predicted MDRD (S/P/Bld) [Vol rate/Area] mL/min/{1.73_m2} >=60 [facility] Glucose [Mass/Vol] 167 mg/dL High 74-106 [facility] Magnesium [Mass/Vol] 1.9 mg/dL 1.8-2.4 [facility] Potassium [Moles/Vol] 3.9 mmol/L 3.5-5.1 [facility] Sodium [Moles/Vol] 141 mmol/L 136-145 [facility] Urate [Mass/Vol] 7.9 mg/dL High 3.5-7.2 [facility] Urea nitrogen [Mass/Vol] 26.0 mg/dL High 7.0-18.0 [facility] Urea nitrogen/Creatinine [Mass ratio] 18.4 mg/mg [facility] Bilirubin Ql (U) Negative NEGATIVE [facility] Glucose (U) [Mass/Vol] Negative NEGATIVE [facility] Ketones Ql (U) Negative NEGATIVE [facility] pH (U) 6.0 [pH] 5.0-9.0 [facility] Specific gravity (U) [Rel density] 1.015 1.005-1.025 [facility] Urobilinogen Qn (U) 0.2 {Dahiana'U}/dL 0.2-1.0 [facility] Laboratory - Specimen inform ationon 10-29-2023 Appearance (U) CLEAR CLEAR [facility] Color (U) LT. YELLOW YELLOW [facility] Laboratory - Urinalysison Hyaline casts LM Ql (Urine sed) RARE [facility] Leukocyte esterase Test strip Ql (U) Negative NEGATIVE [facility] Mucus Ql (Urine sed) NONE SEEN NONE SEEN [facility] Nitrite Ql (U) Negative NEGATIVE [facility] Protein Ql (U) Negative NEG/TRACE [facility] Leukocytes [#/volume] correc romaine for nucleated erythrocytes in Blood by Automated counon 10-29-2023 WBC corrected for nucl RBC Auto (Bld) [#/Vol] 6.9 10 3/uL 4.0-11.0 [facility] MCH Auto (RBC) [Entitic mass ]on 10-29-2023 MCH (RBC) [Entitic mass] 32.2 pg 25.9-34.0 [facility] MCHC Auto (RBC) [Mass/Vol]on 10-29-2023 MCHC (RBC) [Mass/Vol] 35.2 g/dL 29.9-35.2 [facility] MCV Auto (RBC) [Entitic vol] on 10-29-2023 MCV (RBC) [Entitic vol] 91.6 fL 80.0-94.0 [facility] No Panel Informationon 10-28 25-Hydroxy Vitamin D Total 40.8 ng/mL [facility] Comment on above: <20 ng/mL Vit D defi cient20-<30 ng/mL Vit D cxucksdbbgkp94-454 ng/mL Vit D sufficient>100 ng/mL Potential Toxicity Parathyroid Hormone (Intact) 91 pg/mL Abnormal 15-65 [facility] Comment on above: Performed at: - [employer] [address] [id number] Director: Logan Martinez PhD, Phone: [phone] Phosphorus Level 2.3 mg/dL Low 2.6-4.7 [facility] Urine Bacteria NONE SEEN #/HPF NONE SEEN [facility] Urine Occult Blood Negative NEGATIVE [facility] Urine Other Casts SEEN #/LPF Abnormal NONE SEEN [facility] Urine Random Creatinine 15.18 mg/dL Low 20.00-300.00 [facility] Urine Random Total Protein <6.0 mg/dL <=11.9 [facility] Urine RBC NONE SEEN #/HPF 0-2 [facility] Urine Squamous Epithelial Cells FEW #/LPF Abnormal NONE/RARE [facility] Urine WBC NONE SEEN #/HPF NONE SEEN [facility] Platelet mean volume Auto (B ld) [Entitic vol]on 10-29-2023 Platelet mean volume (Bld) [Entitic vol] 8.9 fL Low 9.5-13.5 [facility] Platelets Auto (Bld) [#/Vol] on 10-29-2023 Platelets (Bld) [#/Vol] 236 10 3/uL 150-450 [facility] RBC Auto (Bld) [#/Vol]on RBC (Bld) [#/Vol] 5.21 10 6/uL 4.70-6.10 [facility] Serum or plasma anion gap de terminationon 10-29-2023 Anion gap [Moles/Vol] 15.1 mmol/L [facility] CNPNon 10-07-2023 CNPN Telephone (NEADFV) SUKHDEEP SIMENTAL ([id number]) 1965 M Date Time Provider Department 10/07/23 [facility] During your visit today, we recorded the [...] Encounter Status:Closed by ARIANNA MUHAMMAD [facility] C[facility]N Telephone (Solar CensusFV) SUKHDEEP SIMENTAL ([id number]) 1965 M Date Time Provider Department 10/04/23 THOMAS MATHEW [facility] During your visit today, we recorded [...] Status:Closed by JUAN PABLO NOVA on 10/04/23 [facility] SUKHDEEP SIMENTAL ([id number]) 1965 M Date Time Provider Department 07/30/23 THOMAS MATHEW [facility] During your visit today, we recorded the following information about you: Arianna Little 07/30/2023 11:51 AM Signed Pt phoned regarding upcoming visit 10/06 [employer] appt. Pt unable to manage virtual visit asking for telephone visit. Pt asking how far in advance to do X-Ray. Pt will have X-Ray done locally at [facility]. Please call and advise Pt phone # [phone] Ekaterina Rondon 07/30/2023 1:07 PM Signed Have sent XR Lumbar order to [facility] fax # [phone] as requested from patient. Riddhi Goss APRN.[facility] 07/30/2023 3:25 PM Signed Called Sukhdeep, [...] Encounter Status:Closed by RIDDHI GOSS on 07/30/23 [facility] CNPN Telephone (NIQ) SUKHDEEP SIMENTAL ([id number]) 1965 M Date Time Provider Department 07/23/23 THOMAS MATHEW During your visit today, we recorded the following information about you: Brenda Alex 07/23/2023 9:38 AM Signed Received request from [employer] needing more info, in Snipd for review. Juan Pablo Nova RN 07/23/2023 [...] Status:Closed by JUAN PABLO NOVA on 07/26/23 [facility] 04-16-2023 CNPN Telephone (NIQ) SUKHDEEP SIMENTAL ([id number]) 1965 M Date Time Provider Department 04/16/23 THOMAS MATHEW [facility] During your visit today, we recorded the following information about you: Moriah Ferguson 04/16/2023 1:27 PM Signed Received imaging disc by mail from [facility]. Disc contains CT Lumbar spine [...] Encounter Status:Closed by MORIAH FERGUSON on 06/06/23 [facility] [place] 04-10-2023 HARIKA Telephone (NIQ) SUKHDEEP SIMENTAL ([id number]) 1965 M Date Time Provider Department 04/10/23 THOMAS MATHEW During your visit today, we recorded [...] Status:Closed by JUAN PABLO NOVA on 04/18/23 [facility] [place] 04-09-2023 CNPN Telephone (NIQ) SUKHDEEP SIMENTAL ([id number]) 1965 M Date Time Provider Department 04/09/23 THOMAS MATHEW During your visit today, we recorded the following information about you: Brenda Alex 04/09/2023 10:[address] Lumbar Spine Report from [facility], in epic to review. Brittany Rubio PA-C 04/09/2023 12:24 PM Signed Will require [...] Encounter Status:Closed by ROBSON LAZO on 04/09/23 [facility] 02-11-2023 [facility] Telephone (NIQ) SUKHDEEP SIMENTAL ([id number]) 1965 M Date Time Provider Department 02/11/23 THOMAS MATHEW During your visit today, we recorded the following information about you: Moriah Ferguson 02/11/2023 1:36 PM Signed Received fax from [employer] requesting office notes, C-9, and [employer] 14. See fax scanned in patient's chart. Juan Pablo Nova RN 02/13/2023 3:14 PM Signed Information faxed to number requested. Faxed verification received. MariamVincent jiménezbrigido Rojo 03/06/2023 3:20 PM Signed Received updated notes from [facility] dated 03/05/23. Scanned into [employer]. Allergies As of Date: 02/11/2023 (No Known Allergies) Date Reviewed: 02/07/2023 Reviewed by: Brittany Ratliff - Fully Assessed Reason for Visit: [facility] (Worker's Comp) [4136] Prescriptions as of [...] Status:Closed by JUAN PABLO NOVA on 02/13/23 [facility] [place] 12-21-2022 [facility] Telephone (NIQ) SUKHDEEP SIMENTAL ([id number]) 1965 M Date Time Provider Department 12/21/22 THOMAS MATHEW During your visit today, we recorded the following information about you: Moriah Ferguson 12/21/2022 9:29 AM Signed Patient called with complaints of Drug [facility] not allowing him to hop picker the pain medication that was sent [...] >= 40 [E66.01] 12/08/2022 Encounter Status:Closed by XI SCHRADER on 12/21/22 [facility] 12-18-2022 CNPN Telephone (PODCCP) SUKHDEEP SIMENTAL ([id number]) 1965 M Date Time Provider Department 12/18/22 BLAYNE ISABEL PODCCP During your visit today, we recorded the following information about you: Amaury Carreon 12/18/2022 1:52 PM Signed PATIENT INFORMATION Record ID: [id number] Patient [facility]: [facility]: [facility] [place]: [facility] [place] Attending: Thomas Mathew Center: [facility] INSTRUCTIONS SN to remind patient of next upcoming appointment date, time, location SN TRANSFER TO [facility] SURVEY INFORMATION Medical/Nurse Web Art Director: Amaury Calderón 1. Your discharge instructions are [...] Reason for Visit: Follow Up Phone Call [9421] Cmt: All Clear Prescriptions as of 12/18/2022 [...] Encounter Status:Closed by AMAURY CARREON [facility] Telephone (NIQ) SUKHDEEP SIMENTAL ([id number]) 1965 M Date Time Provider Department 12/14/22 THOMAS MATHEW During your visit today, we recorded [...] via voice mail, as requested. Scanned into [employer]. Allergies As of Date: 12/14/2022 (No Known Allergies) Date Reviewed: 12/10/2022 Reviewed by: Yoli Guerin RN - Fully Assessed Reason for Visit: FMLA Paperwork [4182] Prescriptions as of 12/17/2022 - docusate sodium [...] Encounter Status:Closed by ABBY HERNANDEZ on 12/17/22 Normal [facility] Basic metabolic 2000 panelon 12-11-2022 Anion gap [Moles/Vol] 8 mmol/L Low 9-18 [facility] Comment on above: Order Comment: Speci men Type: BLOOD SPECIMEN Ordering Facility: [facility] Address: [address] [place] [address] Performed By: #### 2 4321-2 #### [facility] CLIA [id number] [address] [place] [address] [place] Calcium [Mass/Vol] 8.7 mg/dL Normal 8.5-10.2 [facility] Comment on above: Order Comment: Speci men Type: BLOOD SPECIMEN Ordering Facility: [facility] Address: [address] [place] [address] Performed By: #### 2 4321-2 #### [facility] CLIA [id number] [address] [place] [address] [place] Chloride [Moles/Vol] 106 mmol/L High 97-105 [facility] Comment on above: Order Comment: Speci men Type: BLOOD SPECIMEN Ordering Facility: [facility] Address: [address] [place] [address] Performed By: #### 2 4321-2 #### [facility] CLIA [id number] [address] [place] [address] [place] CO2 [Moles/Vol] 29 mmol/L Normal 22-30 [facility] Comment on above: Order Comment: Speci men Type: BLOOD SPECIMEN Ordering Facility: [facility] Address: [address] [place] [address] Performed By: #### 2 4321-2 #### [facility] CLIA [id number] [address] [place] [address] [place] Creatinine [Mass/Vol] 1.17 mg/dL Normal 0.73-1.22 [facility] Comment on above: Order Comment: Speci men Type: BLOOD SPECIMEN Ordering Facility: [facility] Address: [address] [place] [address] Performed By: #### 2 4321-2 #### [facility] CLIA [id number] [address] [place] [address] [place] Creatinine and Glomerular filtration rate.predicted panel (S/P/Bld) 72 mL/min/1.73m??? Normal >=60 [facility] Comment on above: Order Comment: Shahrzad dumont Type: BLOOD SPECIMEN Ordering Facility: [facility] Address: [address] [place] [address] Result Comment: Leah mated Glomerular Filtration Rate [...] #### 2 4321-2 #### [facility] CLIA [id number] [address] [place] [address] [place] Glucose [Mass/Vol] 98 mg/dL Normal 74-99 [facility] Comment on above: Order Comment: Shahrzad dumont Type: BLOOD SPECIMEN Ordering Facility: [facility] Address: [address] [place] [address] Result Comment: The [place] Diabetes Association (ADA) provides guidance for cutoff [...] Standards of Medical Care in Diabetes 2016, [place] [employer] Association. Diabetes Care. 2016.39(Suppl 1). Performed By: #### 2 4321-2 #### [facility] CLIA [id number] [address] [place], [place] [address] [place] Potassium [Moles/Vol] 4.8 mmol/L Normal 3.7-5.1 [facility] Comment on above: Order Comment: Speci men Type: BLOOD SPECIMEN Ordering Facility: [facility] Address: [address] [place] [address] Performed By: #### 2 4321-2 #### [facility] CLIA [id number] [address] [place], [place] [address] [facility] Sodium [Moles/Vol] 143 mmol/L Normal 136-144 [facility] Comment on above: Order Comment: Speci men Type: BLOOD SPECIMEN Ordering Facility: [facility] Address: [address] [place] [address] Performed By: #### 2 4321-2 #### [facility] CLIA [id number] [address] [place], [place] [address] [place] [facility] Urea nitrogen [Mass/Vol] 13 mg/dL Normal 9-24 [facility] Comment on above: Order Comment: Speci men Type: BLOOD SPECIMEN Ordering Facility: [facility] Address: [address] [place] [address] Performed By: #### 2 4321-2 #### [facility] CLIA [id number] [address] [place], [place] [address] [facility] CASE MANAGEMon 12-11-2022 CASE MANAGEM HNO ID: [id number] Author: Gloria Toro RN Service: ? Author Type: Registered Nurse Type: Care Mgt Progress Note Filed: 12/11/2022 3:26 PM Note Text: CARE MANAGEMENT PROGRESS NOTE SERVICE DATE: 12/11/2022 SERVICE TIME: 3:26 pm LOS: 4 days No further skilled PT / OT needed at [place]. SIGNATURE: Gloria Toro RN PATIENT NAME: Sukhdeep Simental DATE: December 11, 2022 TIME: 3:25 PM PAGER/CONTACT #: [phone] Normal [facility] CBC panel Auto (Bld)on 12-11 Erythrocyte distribution width (RBC) [Ratio] 12.5 % Normal 11.5-15.0 [facility] Comment on above: Order Comment: Speci men Type: BLOOD SPECIMEN Ordering Facility: [facility] Address: [address] [place] [address] Performed By: #### 5 8410-2 #### [facility] CLIA [id number] [address] [place] [address] [place] Hematocrit (Bld) [Volume fraction] 34.6 % Low 39.0-51.0 [facility] Comment on above: Order Comment: Speci men Type: BLOOD SPECIMEN Ordering Facility: [facility] Address: [address] [place] [address] Performed By: #### 5 8410-2 #### [facility] [place] [id number] [address] [place] [address] [place] Hemoglobin (Bld) [Mass/Vol] 11.7 g/dL Low 13.0-17.0 [facility] Comment on above: Order Comment: Speci men Type: BLOOD SPECIMEN Ordering Facility: [facility] Address: [address] [place] [address] Performed By: #### 5 8410-2 #### [facility] [place] [id number] [address] [place] [address] [place] MCH (RBC) [Entitic mass] 32.0 pg Normal 26.0-34.0 [facility] Comment on above: Order Comment: Speci men Type: BLOOD SPECIMEN Ordering Facility: [facility] Address: [address] [place] [address] Performed By: #### 5 8410-2 #### [facility] [place] [id number] [address] [place] [address] [place] MCHC (RBC) [Mass/Vol] 33.8 g/dL Normal 30.5-36.0 [facility] Comment on above: Order Comment: Speci men Type: BLOOD SPECIMEN Ordering Facility: [facility] Address: [address] [place] [address] Performed By: #### 5 8410-2 #### [facility] [place] [id number] [address] [place] [address] [place] MCV (RBC) [Entitic vol] 94.5 fL Normal 80.0-100.0 [facility] Comment on above: Order Comment: Speci men Type: BLOOD SPECIMEN Ordering Facility: [facility] Address: [address] [place] [address] Performed By: #### 5 8410-2 #### [facility] CLIA [id number] [address] [place], [place] [address] [place] Nucleated RBC (Bld) [#/Vol] 10*3/uL Normal <0.01 [facility] Comment on above: Order Comment: Speci men Type: BLOOD SPECIMEN Ordering Facility: [facility] Address: [address] [place] [address] Performed By: #### 5 8410-2 #### [facility] CLIA [id number] [address] [place] [address] [place] Platelet mean volume (Bld) [Entitic vol] 9.4 fL Normal 9.0-12.7 [facility] Comment on above: Order Comment: Speci men Type: BLOOD SPECIMEN Ordering Facility: [facility] Address: [address] [place] [address] Performed By: #### 5 8410-2 #### [facility] CLIA [id number] [address] [place] [address] [place] Platelets (Bld) [#/Vol] 196 10*3/uL Normal 150-400 [facility] Comment on above: Order Comment: Speci men Type: BLOOD SPECIMEN Ordering Facility: [facility] Address: [address] [place] [address] Performed By: #### 5 8410-2 #### [facility] CLIA [id number] [address] [place] [address] [place] RBC (Bld) [#/Vol] 3.66 10*6/uL Low 4.20-6.00 [facility] Comment on above: Order Comment: Speci men Type: BLOOD SPECIMEN Ordering Facility: [facility] Address: [address] [place] [address] Performed By: #### 5 8410-2 #### [facility] CLIA [id number] [address] [place] [address] [place] WBC (Bld) [#/Vol] 9.04 10*3/uL Normal 3.70-11.00 [facility] Comment on above: Order Comment: Shahrzad dumont Type: BLOOD SPECIMEN Ordering Facility: [facility] Address: [place] [address] Performed By: #### 5 8410-2 #### [facility] CLIA [id number] [facility] [address] OF [facility] CNDSon 12-11-2022 CNDS HNO ID: [id number] Author: Brittany Rubio PA-C Service: Neurosurgery Author Type: Physician Web Art Director Type: Discharge Summary Filed: 12/11/2022 10:38 AM Note Text: Attestation signed by Thomas Mathew MD at 12/11/2022 11:33 AM Thomas Mathew MD DISCHARGE SUMMARY PATIENT NAME: Sukhdeep [...] AND MEDICAL TEAM: [facility] Doctor: Thomas Mathew MD Primary Care Provider: Blayne Isabel MD My Medical Team Members: Treatment Team: Attending Provider: Thomas Mathew MD Consulting: Lulu Oviedo MD MY [...] you become constipated, you may use any yleh-trq-gesknck treatment such as Milk of Magnesia, Sennakot, Prune Juice, Suppositories, etc. in addition to the stool softener/fiber supplement No alcohol or driving while on pain medication Use the dispensed medication (see prescription) You should use an mwad-jbg-sbvicag stool softener (Docusate sodium) and/or a fiber [...] call for appointment?: (more content not included)... [facility] CONSULTon 12-11-2022 CONSULT HNO ID: [id number] Author: Jaiden Rucker PA-C Service: Pain Management Author Type: Physician Web Art Director Type: Consults Filed: 12/11/2022 8:09 AM Note [...] 8/10 Lack of pain control with iv regroover fentanyl and dilaudid PERTINENT ROS: denies fever, [...] (fL) Date Saniya (more content not included)... [facility] NURSING PROGon 12-11-2022 NURSING PROG HNO ID: [id number] Author: Erlinda Bui, RN Service: Nursing Author [...] information. Patient verbalizing understanding of instructions. Normal [facility] Basic metabolic 2000 panelon 12-10-2022 Anion gap [Moles/Vol] 7 mmol/L Low -18 [facility] Comment on above: Order Comment: Speci men Type: BLOOD SPECIMEN Ordering Facility: [facility] Address: [address] [place] [address] Performed By: #### 2 4321-2 #### [facility] CLIA [id number] [address] [place] [address] [place] Calcium [Mass/Vol] 8.3 mg/dL Low 8.5-10.2 [facility] Comment on above: Order Comment: Speci men Type: BLOOD SPECIMEN Ordering Facility: [facility] Address: [address] [place] [address] Performed By: #### 2 4321-2 #### [facility] CLIA [id number] [address] [place] [address] [place] Chloride [Moles/Vol] 107 mmol/L High 97-105 [facility] Comment on above: Order Comment: Speci men Type: BLOOD SPECIMEN Ordering Facility: [facility] Address: [address] [place] [address] Performed By: #### 2 4321-2 #### [facility] CLIA [id number] [address] [place] [address] [place] CO2 [Moles/Vol] 26 mmol/L Normal 22-30 [facility] Comment on above: Order Comment: Speci men Type: BLOOD SPECIMEN Ordering Facility: [facility] Address: [address] [place] [address] Performed By: #### 2 4321-2 #### [facility] CLIA [id number] [address] [place] [address] [place] Creatinine [Mass/Vol] 1.16 mg/dL Normal 0.73-1.22 [facility] Comment on above: Order Comment: Shahrzad dumont Type: BLOOD SPECIMEN Ordering Facility: [facility] Address: [address] [place] [address] Performed By: #### 2 4321-2 #### [facility] CLIA [id number] [address] [place], [place] [address] [place] Creatinine and Glomerular filtration rate.predicted panel (S/P/Bld) 73 mL/min/1.73m??? Normal >=60 [facility] Comment on above: Order Comment: Toneyfrances dumont Type: BLOOD SPECIMEN Ordering Facility: [facility] Address: [address] [place] [address] Result Comment: Leah mated Glomerular Filtration Rate [...] GFR. Performed By: #### 2 4321-2 #### [facility] CLIA [id number] [address] [place], [place] [address] [place] Glucose [Mass/Vol] 129 mg/dL High 74-99 [facility] Comment on above: Order Comment: Shahrzad dumont Type: BLOOD SPECIMEN Ordering Facility: [facility] Address: [address] [place] [address] Result Comment: The [place] [employer] (ADA) provides guidance for cutoff [...] Standards of Medical Care in Diabetes 2016, [place] [employer]. Diabetes Care. 2016.39(Suppl 1). Performed By: #### 2 4321-2 #### [facility] CLIA [id number] [address] [place] [address] [place] Potassium [Moles/Vol] 4.3 mmol/L Normal 3.7-5.1 [facility] Comment on above: Order Comment: Speci men Type: BLOOD SPECIMEN Ordering Facility: [facility] Address: [address] [place] [address] Performed By: #### 2 4321-2 #### [facility] CLIA [id number] [address] [place] [address] [place] Sodium [Moles/Vol] 140 mmol/L Normal 136-144 [facility] Comment on above: Order Comment: Speci men Type: BLOOD SPECIMEN Ordering Facility: [facility] Address: [address] [place] [address] Performed By: #### 2 4321-2 #### [facility] CLIA [id number] [address] [place] [address] [place] Urea nitrogen [Mass/Vol] 16 mg/dL Normal 9-24 [facility] Comment on above: Order Comment: Speci men Type: BLOOD SPECIMEN Ordering Facility: [facility] Address: [address] [place] [address] Performed By: #### 2 4321-2 #### [facility] IA [id number] [address] [place] [address] [place] CBC panel Auto (Bld)on 12-10 Erythrocyte distribution width (RBC) [Ratio] 12.6 % Normal 11.5-15.0 [facility] Comment on above: Order Comment: Speci men Type: BLOOD SPECIMEN Ordering Facility: [facility] Address: [address] [place] [address] Performed By: #### 5 8410-2 #### [facility] CLIA [id number] [address] [place] [address] [place] Hematocrit (Bld) [Volume fraction] 32.7 % Low 39.0-51.0 [facility] Comment on above: Order Comment: Speci men Type: BLOOD SPECIMEN Ordering Facility: [facility] Address: [address] [place] [address] Performed By: #### 5 8410-2 #### [facility] CLIA [id number] [address] [place] [address] [place] Hemoglobin (Bld) [Mass/Vol] 10.9 g/dL Low 13.0-17.0 [facility] Comment on above: Order Comment: Speci men Type: BLOOD SPECIMEN Ordering Facility: [facility] Address: [address] [place] [address] Performed By: #### 5 8410-2 #### [facility] IA [id number] [address] [place] [address] [place] MCH (RBC) [Entitic mass] 31.5 pg Normal 26.0-34.0 [facility] Comment on above: Order Comment: Speci men Type: BLOOD SPECIMEN Ordering Facility: [facility] Address: [address] [place] [address] Performed By: #### 5 8410-2 #### [facility] IA [id number] [address] [place] [address] [place] MCHC (RBC) [Mass/Vol] 33.3 g/dL Normal 30.5-36.0 [facility] Comment on above: Order Comment: Speci men Type: BLOOD SPECIMEN Ordering Facility: [facility] Address: [address] [place] [address] Performed By: #### 5 8410-2 #### [facility] IA [id number] [address] [place] [address] [place] MCV (RBC) [Entitic vol] 94.5 fL Normal 80.0-100.0 [facility] Comment on above: Order Comment: Speci men Type: BLOOD SPECIMEN Ordering Facility: [facility] Address: [address] [place] [address] Performed By: #### 5 8410-2 #### [facility] IA [id number] [address] [place] [address] [place] Nucleated RBC (Bld) [#/Vol] 10*3/uL Normal <0.01 [facility] Comment on above: Order Comment: Speci men Type: BLOOD SPECIMEN Ordering Facility: [facility] Address: [address] [place] [address] Performed By: #### 5 8410-2 #### [facility] CLIA [id number] [address] [place], [place] [address] [place] Platelet mean volume (Bld) [Entitic vol] 9.6 fL Normal 9.0-12.7 [facility] Comment on above: Order Comment: Speci men Type: BLOOD SPECIMEN Ordering Facility: [facility] Address: [address] [place] [address] Performed By: #### 5 8410-2 #### [facility] CLIA [id number] [address] [place] [address] [place] Platelets (Bld) [#/Vol] 157 10*3/uL Normal 150-400 [facility] Comment on above: Order Comment: Speci men Type: BLOOD SPECIMEN Ordering Facility: [facility] Address: [address] [place] [address] Performed By: #### 5 8410-2 #### [facility] IA [id number] [address] [place] [address] [place] RBC (Bld) [#/Vol] 3.46 10*6/uL Low 4.20-6.00 [facility] Comment on above: Order Comment: Speci men Type: BLOOD SPECIMEN Ordering Facility: [facility] Address: [address] [place] [address] Performed By: #### 5 8410-2 #### [facility] CLIA [id number] [address] [place] [address] [place] WBC (Bld) [#/Vol] 8.16 10*3/uL Normal 3.70-11.00 [facility] Comment on above: Order Comment: Speci men Type: BLOOD SPECIMEN Ordering Facility: [facility] Address: [address] [place] [address] Performed By: #### 5 8410-2 #### [facility] CLIA [id number] [address] [place] [address] [place] THERAPY NTon 12-10-2022 THERAPY NT HNO ID: [id number] Author: Odilon Madrid PT Service: Physical Therapy Author Type: Physical Therapist Type: Therapy (PT/OT/Speech/Resp) Filed: 12/10/2022 11:20 AM Note Text: PHYSICAL THERAPY MISSED VISIT SERVICE DATE: 12/10/2022 SERVICE TIME: 1109 to 1111 ROOM: [place] [address] Patient not seen due to Refused Treatment. Pt reported pain levels are too high to attempt therapy. Will f/u as schedule allows and pain improves. SIGNATURE: Odilon Madrid PT PATIENT NAME: Sukhdeep Simental DATE: December 10, 2022 TIME: 11:20 AM [facility] ALLIED HEALTHon 12-09-2022 ALLIED HEALTH HNO ID: [id number] Author: Akila Huitron RT(R) Service: Radiology Author [...] RT Jose(R) December 09, 2022 2:01 PM [facility] Basic metabolic 2000 panelon 12-09-2022 Anion gap [Moles/Vol] 6 mmol/L Low 11-12 [facility] Comment on above: Order Comment: Speci men Type: BLOOD SPECIMEN Ordering Facility: [facility] Address: [address] [place] [address] Performed By: #### 2 4321-2 #### [facility] CLIA [id number] [address] [address] [place] Calcium [Mass/Vol] 8.5 mg/dL Normal 8.5-10.2 [facility] Comment on above: Order Comment: Speci men Type: BLOOD SPECIMEN Ordering Facility: [facility] Address: [address] [place] [address] Performed By: #### 2 4321-2 #### [facility] CLIA [id number] [address] [place] [address] [place] Chloride [Moles/Vol] 106 mmol/L High 97-105 [facility] Comment on above: Order Comment: Speci men Type: BLOOD SPECIMEN Ordering Facility: [facility] Address: [address] [place] [address] Performed By: #### 2 4321-2 #### [facility] CLIA [id number] [address] [place] [address] [place] CO2 [Moles/Vol] 30 mmol/L Normal 22-30 [facility] Comment on above: Order Comment: Speci men Type: BLOOD SPECIMEN Ordering Facility: [facility] Address: [address] [place] [address] Performed By: #### 2 4321-2 #### [facility] IA [id number] [address] [place] [address] [place] Creatinine [Mass/Vol] 1.34 mg/dL High 0.73-1.22 [facility] Comment on above: Order Comment: Speci men Type: BLOOD SPECIMEN Ordering Facility: [facility] Address: [address] [place] [address] Performed By: #### 2 4321-2 #### [facility] CLIA [id number] [address] [place] [address] [place] Creatinine and Glomerular filtration rate.predicted panel (S/P/Bld) 61 mL/min/1.73m??? Normal >=60 [facility] Comment on above: Order Comment: Speci men Type: BLOOD SPECIMEN Ordering Facility: [facility] Address: [address] [place] [address] Result Comment: Leah mated Glomerular Filtration Rate [...] #### 2 4321-2 #### [facility] CLIA [id number] [address] [place] [address] [place] Glucose [Mass/Vol] 105 mg/dL High 74-99 [facility] Comment on above: Order Comment: Shahrzad dumont Type: BLOOD SPECIMEN Ordering Facility: [facility] Address: [address] [place] [address] Result Comment: The [place] [employer] (ADA) provides guidance for cutoff [...] Standards of Medical Care in Diabetes 2016, [place] [employer]. Diabetes Care. 2016.39(Suppl 1). Performed By: #### 2 4321-2 #### [facility] CLIA [id number] [address] [place], [place] [address] [place] Potassium [Moles/Vol] 3.9 mmol/L Normal 3.7-5.1 [facility] Comment on above: Order Comment: Shahrzad dumont Type: BLOOD SPECIMEN Ordering Facility: [facility] Address: [place] [address] Performed By: #### 2 4321-2 #### [facility] CLIA [id number] [address] [place], [place] [address] [place] Sodium [Moles/Vol] 142 mmol/L Normal 136-144 [facility] Comment on above: Order Comment: Speci men Type: BLOOD SPECIMEN Ordering Facility: [facility] Address: [address] [place] [address] Performed By: #### 2 4321-2 #### [facility] CLIA [id number] [address] [place] [address] [place] Urea nitrogen [Mass/Vol] 18 mg/dL Normal 9-24 [facility] Comment on above: Order Comment: Speci men Type: BLOOD SPECIMEN Ordering Facility: [facility] Address: [address] [place] [address] Performed By: #### 2 4321-2 #### [facility] CLIA [id number] [address] [place] [address] [place] CBC panel Auto (Bld)on 12-09 Erythrocyte distribution width (RBC) [Ratio] 12.7 % Normal 11.5-15.0 [facility] Comment on above: Order Comment: Speci men Type: BLOOD SPECIMEN Ordering Facility: [facility] Address: [address] [place] [address] Performed By: #### 5 8410-2 #### [facility] CLIA [id number] [address] [place] [address] [place] Hematocrit (Bld) [Volume fraction] 34.1 % Low 39.0-51.0 [facility] Comment on above: Order Comment: Speci men Type: BLOOD SPECIMEN Ordering Facility: [facility] Address: [address] [place] [address] Performed By: #### 5 8410-2 #### [facility] CLIA [id number] [address] [place] [address] [place] Hemoglobin (Bld) [Mass/Vol] 11.6 g/dL Low 13.0-17.0 [facility] Comment on above: Order Comment: Speci men Type: BLOOD SPECIMEN Ordering Facility: [facility] Address: [address] [place] [address] Performed By: #### 5 8410-2 #### [facility] CLIA [id number] [address] [place] [address] [place] MCH (RBC) [Entitic mass] 32.3 pg Normal 26.0-34.0 [facility] Comment on above: Order Comment: Speci men Type: BLOOD SPECIMEN Ordering Facility: [facility] Address: [address] [place] [address] Performed By: #### 5 8410-2 #### [facility] CLIA [id number] [address] [place] [address] [place] MCHC (RBC) [Mass/Vol] 34.0 g/dL Normal 30.5-36.0 [facility] Comment on above: Order Comment: Speci men Type: BLOOD SPECIMEN Ordering Facility: [facility] Address: [address] [place] [address] Performed By: #### 5 8410-2 #### [facility] CLIA [id number] [address] [place] [address] [place] MCV (RBC) [Entitic vol] 95.0 fL Normal 80.0-100.0 [facility] Comment on above: Order Comment: Speci men Type: BLOOD SPECIMEN Ordering Facility: [facility] Address: [address] [place] [address] Performed By: #### 5 8410-2 #### [facility] IA [id number] [address] [place] [address] [place] Nucleated RBC (Bld) [#/Vol] 10*3/uL Normal <0.01 [facility] Comment on above: Order Comment: Speci men Type: BLOOD SPECIMEN Ordering Facility: [facility] Address: [address] [place] [address] Performed By: #### 5 8410-2 #### [facility] CLIA [id number] [address] [place] [address] [place] Platelet mean volume (Bld) [Entitic vol] 9.6 fL Normal 9.0-12.7 [facility] Comment on above: Order Comment: Speci men Type: BLOOD SPECIMEN Ordering Facility: [facility] Address: [address] [place] [address] Performed By: #### 5 8410-2 #### [facility] CLIA [id number] [address] [place], [place] [address] [place] Platelets (Bld) [#/Vol] 159 10*3/uL Normal 150-400 [facility] Comment on above: Order Comment: Speci men Type: BLOOD SPECIMEN Ordering Facility: [facility] Address: [address] [place] [address] Performed By: #### 5 8410-2 #### [facility] CLIA [id number] [address] [place], [place] [address] [place] RBC (Bld) [#/Vol] 3.59 10*6/uL Low 4.20-6.00 [facility] Comment on above: Order Comment: Speci men Type: BLOOD SPECIMEN Ordering Facility: [facility] Address: [address] [place] [address] Performed By: #### 5 8410-2 #### [facility] IA [id number] [address] [place], [place] [address] [place] WBC (Bld) [#/Vol] 8.72 10*3/uL Normal 3.70-11.00 [facility] Comment on above: Order Comment: Speci men Type: BLOOD SPECIMEN Ordering Facility: [facility] Address: [address] [place] [address] Performed By: #### 5 8410-2 #### [facility] IA [id number] [address] [place], [place] [address] [facility] OF [place] NURSING PROGon 12-09-2022 NURSING PROG HNO ID: [id number] Author: Abdias Pemberton RN Service: Nursing Author Type: Registered Nurse Type: Nursing Progress Note Filed: 12/09/2022 7:21 PM Note Text: 12/09/2022 0826: hydromorphone ADMISSIONS RN rate varied. Patient rating pain 8/10 at this time stating oh, its much better than yesterday . 0931: Patient working with PT at this time 1035: Patient resting/sleeping comfortably in bed at this time. 1200: fentaNYL ADMISSIONS RN ordered. 1345: Patient ambulating in the hallway with nursing staff and . 1402: Patient at radiology for post-op XR 1406: Hydromorphone ADMISSIONS RN discontinued. While discontinuing the hydromorphone ADMISSIONS RN, patient made several comments about unused hydromorphone, I can take that medication off your hands. Patient educated that the medication will be properly wasted per protocol. 1407: fentaNYL ADMISSIONS RN started and Hydromorphone properly wasted per protocol. [...] Can't you increase my setting on the ADMISSIONS RN because I had better pain relief with the Dilaudid pump because I could press the button more frequent? Can you increase the pump settings? [facility] THERAPY NTon 12-09-2022 THERAPY NT HNO ID: [id number] Author: Abdias Crooks OT/L Service: Occupational Therapy Author Type: Occupational Therapist Type: Therapy (PT/OT/Speech/Resp) Filed: 12/09/2022 3:30 PM Note Text: Occupational Therapy Evaluation SERVICE DATE: 12/09/2022 SERVICE TIME: 1438 to 1502 ROOM: [place] [address] Total Joint Replacement Discharge Readiness: Cleared from [...] slower than expec (more content not included)... [facility] THERAPY NT HNO ID: [id number] Author: Hannah Mota PT, DPT Service: Physical Therapy Author Type: Physical Therapist Type: Therapy (PT/OT/Speech/Resp) Filed: 12/09/2022 10:06 AM Note Text: Physical Therapy Treatment SERVICE DATE: 12/09/2022 SERVICE TIME: 930 to 954 ROOM: [place] [address] Total Joint Replacement Discharge Readiness: Cleared from Physical Therapy Recommended Discharge Disposition: Home Anticipated Discharge Needs: Physical Assist at Home Physical Assist at Home for: Cleaning, Laundry, Meals, Stairs, Safety Recommended Discharge Equipment: No equipment needs anticipated PT 6 Clicks Score: 24 Pt agreeable to participate. Reports slight improvement in pain compared to yesterday but relies highly on ADMISSIONS RN. Pt able to ambulate around unit with [...] Difficulty walking-musculoskeleta l Interventions Provided: Therapeutic Activity (97847), Gait Training (61948) Therapeutic Activity (12485) Treatment Minutes: 10 $ Therapeutic Activity (42977) Billed Units: 1 unit Gait Training (21761) Treatment Minutes: 14 $ Gait Training (72416) Billed Units: 1 unit Training AND Education [...] for this therapy (more content not included)... [facility] XR LUMBAR 2V AP/LATon 2022 XR LUMBAR [...] IMPRESSION: Postoperative and degenerative changes as described. Twister Operator: COURTNEY Transcribe Date/Time: Dec 09 2022 3:39P Dictated by : DONNY WOO DO This examination was interpreted and the report reviewed and electronically signed by: DONNY WOO DO on Dec 09 2022 3:42PM EST [id number] Normal [facility] Basic metabolic 2000 panelon 12-08-2022 Anion gap [Moles/Vol] 7 mmol/L Low 9-18 [facility] Comment on above: Order Comment: Speci men Type: BLOOD SPECIMEN Ordering Facility: [facility] Address: [address] [place] [address] Performed By: #### 2 4321-2 #### [facility] CLIA [id number] [address] [place] [address] [place] Calcium [Mass/Vol] 8.2 mg/dL Low 8.5-10.2 [facility] Comment on above: Order Comment: Speci men Type: BLOOD SPECIMEN Ordering Facility: [facility] Address: [address] [place] [address] Performed By: #### 2 4321-2 #### [facility] CLIA [id number] [address] [place] [address] [place] Chloride [Moles/Vol] 106 mmol/L High 97-105 [facility] Comment on above: Order Comment: Speci men Type: BLOOD SPECIMEN Ordering Facility: [facility] Address: [address] [place] [address] Performed By: #### 2 4321-2 #### [facility] CLIA [id number] [address] [place], [place] [address] [place] CO2 [Moles/Vol] 28 mmol/L Normal 22-30 [facility] Comment on above: Order Comment: Speci men Type: BLOOD SPECIMEN Ordering Facility: [facility] Address: [address] [place] [address] Performed By: #### 2 4321-2 #### [facility] CLIA [id number] [address] [place] [address] [place] Creatinine [Mass/Vol] 1.35 mg/dL High 0.73-1.22 [facility] Comment on above: Order Comment: Shahrzad dumont Type: BLOOD SPECIMEN Ordering Facility: [facility] Address: [address] [place] [address] Performed By: #### 2 4321-2 #### [facility] CLIA [id number] [address] [place] [address] [place] Creatinine and Glomerular filtration rate.predicted panel (S/P/Bld) 60 mL/min/1.73m??? Normal >=60 [facility] Comment on above: Order Comment: Shahrzad dumont Type: BLOOD SPECIMEN Ordering Facility: [facility] Address: [address] [place] [address] Result Comment: Leah mated Glomerular Filtration Rate [...] #### 2 4321-2 #### [facility] CLIA [id number] [address] [place], [place] [address] [place] Glucose [Mass/Vol] 139 mg/dL High 74-99 [facility] Comment on above: Order Comment: Shahrzad dumont Type: BLOOD SPECIMEN Ordering Facility: [facility] Address: [address] [place] [address] Result Comment: The [place] [employer] (ADA) provides guidance for cutoff [...] Standards of Medical Care in Diabetes 2016, [place] [employer]. Diabetes Care. 2016.39(Suppl 1). Performed By: #### 2 4321-2 #### [facility] CLIA [id number] [address] [place] [address] [place] Potassium [Moles/Vol] 3.7 mmol/L Normal 3.7-5.1 [facility] Comment on above: Order Comment: Speci men Type: BLOOD SPECIMEN Ordering Facility: [facility] Address: [address] [place] [address] Performed By: #### 2 4321-2 #### [facility] CLIA [id number] [address] [place] [address] [place] Sodium [Moles/Vol] 141 mmol/L Normal 136-144 [facility] Comment on above: Order Comment: Speci men Type: BLOOD SPECIMEN Ordering Facility: [facility] Address: [address] [place] [address] Performed By: #### 2 4321-2 #### [facility] CLIA [id number] [address] [place] [address] [place] Urea nitrogen [Mass/Vol] 23 mg/dL Normal 9-24 [facility] Comment on above: Order Comment: Speci men Type: BLOOD SPECIMEN Ordering Facility: [facility] Address: [address] [place] [address] Performed By: #### 2 4321-2 #### [facility] CLIA [id number] [address] [place] [address] [place] CASE MGT INIT ASSESon 2022 CASE MGT INIT ASSES HNO ID: [id number] Author: Gloria Toro RN Service: ? Author Type: Registered Nurse Type: Care Mgt Initial Assessment Filed: 12/08/2022 8:48 AM Note Text: CARE MANAGEMENT: ASSESSMENT AND DISCHARGE PLAN SERVICE DATE: December 08, 2022 SERVICE TIME: 8:46 am PCP: Blayne Isabel MD Primary Contact: Extended Emergency Contact Information Primary Emergency Contact: Darryl Simental Address: [address] [place] [address] [place] Mobile Relation: Spouse Admission Status: Inpatient - SURGERY/PROCEDURE(S): L2-S1 revision instrumented fusion L2/3, L3/4 TLIF Insurance Provider: TESHA [employer]OS [employer] Discharge Planning requested by: Per [...] to go home, General wellness, Less pain [place] Explained: [place] Given: No Reason Not Given: No placements necessary Discharge Planning Participant(s): Patient Patient/Family Comments: Caregiver Assessment: Transport at Discharge: Needs Prior to Discharge: Needs Prior to Discharge: To Be Determined;OT/PT Evaluation Post-Acute Discharge Plan: CM met with patient at the bedside this a.m., has rollator, cane AND walker, says will be driving him home at [place] and can assist him as well, per eval, no further skilled PT / OT needed at [place]. CM Department will continue to follow until [place]. SIGNATURE: Gloria Toro RN PATIENT NAME: Sukhdeep Simental DATE: December 08, 2022 TIME: 8:46 AM CONTACT #: [phone] [facility] CBC panel Auto (Bld)on 12-08 Erythrocyte distribution width (RBC) [Ratio] 12.8 % Normal 11.5-15.0 [facility] Comment on above: Order Comment: Shahrzad dumont Type: BLOOD SPECIMEN Ordering Facility: [facility] Address: [address] [place] [address] Performed By: #### 5 8410-2 #### [facility] CLIA [id number] [address] [place] [address] [place] Hematocrit (Bld) [Volume fraction] 34.8 % Low 39.0-51.0 [facility] Comment on above: Order Comment: Shahrzad dumont Type: BLOOD SPECIMEN Ordering Facility: [facility] Address: [address] [place] [address] Performed By: #### 5 8410-2 #### [facility] [place] [id number] [address] [place] [address] [place] Hemoglobin (Bld) [Mass/Vol] 11.7 g/dL Low 13.0-17.0 [facility] Comment on above: Order Comment: Speci men Type: BLOOD SPECIMEN Ordering Facility: [facility] Address: [address] [place] [address] Performed By: #### 5 8410-2 #### [facility] IA [id number] [address] [place] [address] [place] MCH (RBC) [Entitic mass] 31.8 pg Normal 26.0-34.0 [facility] Comment on above: Order Comment: Speci men Type: BLOOD SPECIMEN Ordering Facility: [facility] Address: [address] [place] [address] Performed By: #### 5 8410-2 #### [facility] [place] [id number] [address] [place] [address] [place] MCHC (RBC) [Mass/Vol] 33.6 g/dL Normal 30.5-36.0 [facility] Comment on above: Order Comment: Speci men Type: BLOOD SPECIMEN Ordering Facility: [facility] Address: [address] [place] [address] Performed By: #### 5 8410-2 #### [facility] [place] [id number] [address] [place] [address] [place] MCV (RBC) [Entitic vol] 94.6 fL Normal 80.0-100.0 [facility] Comment on above: Order Comment: Speci men Type: BLOOD SPECIMEN Ordering Facility: [facility] Address: [address] [place] [address] Performed By: #### 5 8410-2 #### [facility] [place] [id number] [address] [place] [address] [place] Nucleated RBC (Bld) [#/Vol] 10*3/uL Normal <0.01 [facility] Comment on above: Order Comment: Speci men Type: BLOOD SPECIMEN Ordering Facility: [facility] Address: [address] [place] [address] Performed By: #### 5 8410-2 #### [facility] CLIA [id number] [address] [place] [address] [place] Platelet mean volume (Bld) [Entitic vol] 9.4 fL Normal 9.0-12.7 [facility] Comment on above: Order Comment: Speci men Type: BLOOD SPECIMEN Ordering Facility: [facility] Address: [address] [place] [address] Performed By: #### 5 8410-2 #### [facility] CLIA [id number] [address] [place] [address] [place] Platelets (Bld) [#/Vol] 162 10*3/uL Normal 150-400 [facility] Comment on above: Order Comment: Speci men Type: BLOOD SPECIMEN Ordering Facility: [facility] Address: [address] [place] [address] Performed By: #### 5 8410-2 #### [facility] CLIA [id number] [address] [place] [address] [place] RBC (Bld) [#/Vol] 3.68 10*6/uL Low 4.20-6.00 [facility] Comment on above: Order Comment: Speci men Type: BLOOD SPECIMEN Ordering Facility: [facility] Address: [address] [place] [address] Performed By: #### 5 8410-2 #### [facility] CLIA [id number] [address] [place] [address] [place] WBC (Bld) [#/Vol] 7.95 10*3/uL Normal 3.70-11.00 [facility] Comment on above: Order Comment: Speci men Type: BLOOD SPECIMEN Ordering Facility: [facility] Address: [address] [place] [address] Performed By: #### 5 8410-2 #### [facility] CLIA [id number] [address] [place] [address] [place] CONSULTon 12-08-2022 CONSULT HNO ID: [id number] Author: Lulu Oviedo MD Service: General Internal Medicine Author Type: Physician Type: Consults Filed: 12/08/2022 12:04 PM Note Text: INTERNAL MEDICINE CONSULT HISTORY AND PHYSICAL PLEASE DO NOT REMOVE FROM THE CHART OR MODIFY PRINTED COPY Patient Name: Sukhdeep Simental PRIMARY CARE PHYSICIAN: Blayne Isabel MD CONSULTING PHYSICIAN: Thomas Mathew MD MD DATE of CONSULT: 12:02 [...] Recent Labs 12/08 (more content not included)... [facility] NURSING PROGon 12-08-2022 NURSING PROG HNO ID: [id number] Author: Abdias Pemberton, RN Service: Nursing Author [...] notified of the patient's increased pain after ADMISSIONS RN was DC'ed earlier and transitioned to PO medications. Hydromorphone ADMISSIONS RN reordered per Dr. Mathew. 1729: Hydromorphone ADMISSIONS RN restarted. 1735: Patient assisted by nursing staff to bed and states that his pain has decreased. Patient resting comfortably in bed at this time. 1900: Patient resting comfortably in bed at this time. [facility] THERAPY NTon 12-08-2022 THERAPY NT HNO ID: [id number] Author: Taylor Montoya OTR/Kelly Service: Occupational Therapy Author Type: Occupational Therapist Type: Therapy (PT/OT/Speech/Resp) Filed: 12/08/2022 12:35 PM Note Text: OCCUPATIONAL THERAPY MISSED VISIT SERVICE DATE: 12/08/2022 SERVICE TIME: 1233 to 1233 ROOM: [place] [address] Patient not seen due to Refused Treatment. Patient having a significant amount of pain. Offered patient option of working with OT tomorrow. Pt would prefer OT evaluation tomorrow. SIGNATURE: URSULA Glynn/Kelly PATIENT NAME: Sukhdeep Simental DATE: December 08, 2022 TIME: 12:34 PM [facility] THERAPY NT HNO ID: [id number] Author: Jean-Pierre Lutz, PT, DPT Service: Physical Therapy Author Type: Physical Therapist Type: Therapy (PT/OT/Speech/Resp) Filed: 12/08/2022 8:44 AM Note Text: Physical Therapy Evaluation SERVICE DATE: 12/08/2022 SERVICE TIME: 807 to 830 ROOM: [place] [address] Cleared from Physical Therapy Recommended Discharge Disposition: [...] Weakness (generalized) Interventions Provided: Evaluation, Gait Training (31531) $ Evaluation-Low (74279) Billed Units: 1 unit Gait Training (83489) Treatment Minutes: 8 $ Gait Training (47887) Billed Units: 1 unit Training AND Education [...] DATE: December 08, 2022 TIME: 8:44 AM [facility] ANES POSTPROC EVALon 023 ANES POSTPROC EVAL HNO ID: [id number] Author: Ankit Orlando MD Service: Anesthesiology Author Type: Anesthesiologist Type: Anesthesia Postprocedure Evaluation Filed: 12/07/2022 3:37 PM Note Text: POST ANESTHESIA EVALUATION NOTE : 1965 Procedure Summary Date: 12/07/22 Room / Location: [place] [address] / OR Anesthesia Start: 737 Anesthesia Stop: 125 Procedures: TLIF DECOMPRESSION LAMINECTOMY [...] 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 Patient / Responsible Democrat agrees to proceed: yes Patient / Surrogate agrees to blood products: Yes DNR status not reviewed with patient and/or family prior to surgery. Significant changes in the patient condition since the History and Physical, not otherwise documented in primary service progress note: no. Vitals Value Taken Time BP 167/88 12/07/22639 Pulse 78 12/07/22639 Resp 16 12/07/22639 Temp 36.1 ?C (97 [...] December 07, 2022 TIME: 7:01 AM CSN: [id number] [facility] BRIEF OP NOTon 12-07-2022 BRIEF OP NOT HNO ID: [id number] Author: Thomas Mathew MD Service: Neurosurgery Author Type: Physician Type: Brief Op Note Filed: 12/07/2022 12:49 PM Note Text: BRIEF OPERATIVE / PROCEDURE NOTE LOG ID: [id number] SURGERY/PROCEDURE DATE: 12/07/2022 INCISION/PROCEDURE START TIME: 8:09 AM INCISION CLOSE/PROCEDURE END TIME: 12:34 PM SURGEON(S)/PROCEDURALI ST(S) AND BUSINESS PRACTICES SUPERVISOR(S): Surgeon(s) and Role: * Thomas Mathew MD - Primary * Janey Hess [...] stenosis with neurogenic claudication, degenerative scoliosis SIGNATURE: Thomas Mathew MD PATIENT NAME: Sukhdeep Simental DATE: December 07, 2022 TIME: 12:31 PM [facility] NURSING PROGon 12-07-2022 NURSING PROG HNO ID: [id number] Author: Livia Calix RN Service: ? Author Type: Registered Nurse Type: Nursing Progress Note Filed: 12/07/2022 2:48 PM Note Text: Transfer Note: PATIENT NAME: Sukhdeep Simental Patient Location: [address]/[place] [address] Room: [place] [address] Patient transferred into room/unit 503-2 in stable condition. Patient educated on use of call light, fall precautions, and incentive spirometer. No futher actions taken at this time. Will continue to monitor and check with patient. [facility] OPERATIVE NOon 12-07-2022 OPERATIVE NO HNO ID: [id number] Author: Thomas Mathew MD Service: Neurosurgery Author Type: Physician Type: Operative Report Filed: 12/07/2022 3:54 PM Note Text: OPERATIVE/PROCEDURE REPORT LOG ID: [id number] SURGERY/PROCEDURE DATE: 12/07/2022 INCISION/PROCEDURE START TIME: 8:09 AM INCISION CLOSE/PROCEDURE END TIME: 12:34 PM SURGEON(S)/PROCEDURALI ST(S) AND BUSINESS PRACTICES SUPERVISOR(S): Surgeon(s) and Role: * Thomas Mathew MD - Primary * Janey Hess [...] and sized at a 10 mm. The BiondVax system was the instrumentation system used. Local [...] drill was used to make a small state pilot hole. The gear shift along with [...] removed at the L4 to S1. The maribell was extended from the L2-S1.. Cross-table lateral [...] Implant Name Type Inv. Item Serial No. Critical Care Educator Lot No. LRB No. Used Action VITOSS [id number] BIOACTIVE BONE GRAFT SUBSTITUTE 5.0CUB CM Implant [place] [id number] N/A 1 Implanted CAGE TRITANIUM 6D [id number] SPINAL STERILE LATEX FREE LUMBAR POSTERIOR - [id number] Implant CAGE TRITANIUM 6D [id number] SPINAL STERILE LATEX FREE LUMBAR POSTERIOR [place] SPINE T9H8 N/A 1 Implanted CAGE TRITANIUM 6D [id number] SPINAL STERILE LATEX FREE LUMBAR POSTERIOR - [id number] Implant CAGE TRITANIUM 6D [id number] (more content not included)... [facility] XR LUMBAR 2V AP/LATon 2022 XR LUMBAR 2V AP/LAT * * *Final Report* * * DATE OF EXAM: Dec 07 2022 12:52PM DI [facility] - XR LUMBAR 2V AP/LAT / PROCEDURE [...] examination for surgical planning and documentation. . Twister Operator: PSCB Transcribe Date/Time: Dec 07 2022 3:13P Dictated by : DONNY WOO DO This examination was interpreted and the report reviewed and electronically signed by: DONNY WOO DO on Dec 07 2022 3:15PM EST [id number] [facility] XR LUMBAR 2V AP/LAT * * *Final Report* * * DATE OF EXAM: Dec 07 2022 11:33AM [place] [address] - XR LUMBAR 2V AP/LAT / PROCEDURE [...] L3-L4 and placement of RIGHT-sided vertical interconnecting maribell at L2-L3 . Surgical retractors are present. IMPRESSION: Intraoperative examination for surgical planning and documentation. Twister Operator: COURTNEY Transcribe Date/Time: Dec 07 2022 2:43P Dictated by : DONNY WOO DO This examination was interpreted and the report reviewed and electronically signed by: DONNY WOO DO on Dec 07 2022 2:46PM EST [id number] [facility] XR LUMBAR 2V AP/LAT * * *Final [...] examination for surgical planning and documentation. . Twister Operator: Prezi Transcribe Date/Time: Dec 07 2022 2:37P Dictated by : DONNY WOO DO This examination was interpreted and the report reviewed and electronically signed by: DONNY WOO DO on Dec 07 2022 2:40PM EST [id number] [facility] 11-29-2022 [facility] Telephone (NIQ) SUKHDEEP SIMENTAL ([id number]) 1965 M Date Time Provider Department 11/29/22 THOM[facility] During your visit today, we recorded the following information about you: Moriah Ferguson 11/29/2022 9:50 AM Signed Patient called regarding a C/9 being filed for his Dec 07 surgery. He spoke to his [facility] contact and they said nothing has been filed yet. Please update patient. Juan Pablo Nova RN 11/29/2022 10:27 AM Signed C9 sent to provider for signature. Awaiting signature. Juan Pablo Nova RN 11/29/2022 12:20 PM Signed Signed C9 sent to [facility] and [facility]. Faxed verifications received. Kathe Lezama 12/05/2022 11:01 AM Signed Patient calling asking for an update on his C9 and surgery approval. He would like to know if nurse can reach out to [facility] for an update and let him know. Juan Pablo Nova RN 12/05/2022 11:43 AM Signed Called Sunita and discussed patient's upcoming surgery. Per Sunita she did already explain to the patient that the information was submitted to the Health Services Manager for review and does take up to 5 business days for a decision. Juan Pablo Nova RN 12/05/2022 1:16 PM Signed Spoke with patient. Informed case is still on for Saturday and that I spoke with Sunita. Patient appreciative of call. Ekaterina Rondon 12/06/2022 11:34 AM Addendum Sunita called from [facility], regarding patient surgery tomorrow. Surgery has been approved based on what it was shown on the medical record. Sunita wanted a called back # [phone] Ekaterina Rondon 12/06/2022 11:35 AM Signed [facility] Scan in patient chart for review. Juan Pablo Nova RN 12/06/2022 1:09 PM Signed Called Sunita with no answer. Left message to return call. Wanted to get more information regarding her questions. Juan Pablo Nova RN 12/06/2022 2:00 PM Signed Spoke with Sunita who states surgery has been approved for the surgery requested and a 3 day stay after surgery. No further questions. Allergies As of Date: 11/29/2022 (No Known Allergies) Date Reviewed: 11/21/2022 Reviewed by: Maite Galloway APRN.1ST [employer] - Fully Assessed Reason for Visit: Bwc [...] by JUAN PABLO NOVA on 11/29/22 Normal [facility] CBC W Auto Differential pane l (Bld)on 11-21-2022 Basophils (Bld) [#/Vol] 0.04 10*3/uL Normal <0.11 [facility] Comment on above: Order Comment: Speci men Type: BLOOD SPECIMENOrdering Facility: [facility] Address: [address] [place] [address] Performed By: #### 5 7021-8 ####[facility] [id number] [place] [address] [place] Basophils/100 WBC (Bld) 0.8 % Normal [facility] Comment on above: Order Comment: Speci men Type: BLOOD SPECIMENOrdering Facility: [facility] Address: [address] [place] [address] Performed By: #### 5 7021-8 ####[facility] [id number] [address] [place] Differential cell count method Nom (Bld) Auto Normal [facility] Comment on above: Order Comment: Speci men Type: BLOOD SPECIMENOrdering Facility: [facility] Address: [address] [place] [address] Performed By: #### 5 7021-8 ####[facility] [id number] [place] [address] [place] Eosinophils (Bld) [#/Vol] 0.11 10*3/uL Normal <0.46 [facility] Comment on above: Order Comment: Speci men Type: BLOOD SPECIMENOrdering Facility: [facility] Address: [address] [place] [address] Performed By: #### 5 7021-8 ####[facility] [id number] [address] [place] Eosinophils/100 WBC (Bld) 2.1 % Normal [facility] Comment on above: Order Comment: Speci men Type: BLOOD SPECIMENOrdering Facility: [facility] Address: [address] [place], [place] [address] Performed By: #### 5 7021-8 ####[facility] [id number] [place] [address] [place] Erythrocyte distribution width (RBC) [Ratio] 12.4 % Normal 11.5-15.0 [facility] Comment on above: Order Comment: Speci men Type: BLOOD SPECIMENOrdering Facility: [facility] Address: [address] [place], [place] [address] Performed By: #### 5 7021-8 ####[facility] [id number] [place] [address] [place] Hematocrit (Bld) [Volume fraction] 42.9 % Normal 39.0-51.0 [facility] Comment on above: Order Comment: Speci men Type: BLOOD SPECIMENOrdering Facility: [facility] Address: [address] Performed By: #### 5 7021-8 ####[facility] [id number] [place] [address] [place] Hemoglobin (Bld) [Mass/Vol] 14.5 g/dL Normal 13.0-17.0 [facility] Comment on above: Order Comment: Speci men Type: BLOOD SPECIMENOrdering Facility: [facility] Address: [address] [place], [place] [address] Performed By: #### 5 7021-8 ####[facility] [id number] [place] [address] [place] Immature granulocytes (Bld) [#/Vol] 10*3/uL Normal <0.10 [facility] Comment on above: Order Comment: Speci men Type: BLOOD SPECIMENOrdering Facility: [facility] Address: [address] [place], [place] [address] Performed By: #### 5 7021-8 ####[facility] [id number] [place] [address] [place] Immature granulocytes/100 WBC (Bld) 0.4 % Normal [facility] Comment on above: Order Comment: Speci men Type: BLOOD SPECIMENOrdering Facility: [facility] Address: [address] [place], [place] [address] Performed By: #### 5 7021-8 ####[facility] [id number] [place] [address] [place] Lymphocytes (Bld) [#/Vol] 1.45 10*3/uL Normal 1.00-4.00 [facility] Comment on above: Order Comment: Speci men Type: BLOOD SPECIMENOrdering Facility: [facility] Address: [address] [place], [place] [address] Performed By: #### 5 7021-8 ####[facility] [id number] [address] [place] Lymphocytes/100 WBC (Bld) 27.4 % Normal [facility] Comment on above: Order Comment: Speci men Type: BLOOD SPECIMENOrdering Facility: [facility] Address: [address] [place] [address] Performed By: #### 5 7021-8 ####[facility] [id number] [address] MCH (RBC) [Entitic mass] 31.7 pg Normal 26.0-34.0 [facility] Comment on above: Order Comment: Speci men Type: BLOOD SPECIMENOrdering Facility: [facility] Address: [address] [place] [address] Performed By: #### 5 7021-8 ####[facility] [id number] [address] [place] [facility] MCHC (RBC) [Mass/Vol] 33.8 g/dL Normal 30.5-36.0 [facility] Comment on above: Order Comment: Speci men Type: BLOOD SPECIMENOrdering Facility: [facility] Address: [address] [place], [place] [address] Performed By: #### 5 7021-8 ####[facility] [id number] [address] [place] MCV (RBC) [Entitic vol] 93.7 fL Normal 80.0-100.0 [facility] Comment on above: Order Comment: Speci men Type: BLOOD SPECIMENOrdering Facility: [facility] Address: [address] [place], [place] [address] Performed By: #### 5 7021-8 ####[facility] [id number] [place] [address] [place] Monocytes (Bld) [#/Vol] 0.49 10*3/uL Normal <0.87 [facility] Comment on above: Order Comment: Speci men Type: BLOOD SPECIMENOrdering Facility: [facility] Address: [address] Performed By: #### 5 7021-8 ####[facility] [id number] [place] [address] [place] Monocytes/100 WBC (Bld) 9.2 % Normal [facility] Comment on above: Order Comment: Speci men Type: BLOOD SPECIMENOrdering Facility: [facility] Address: [address] Performed By: #### 5 7021-8 ####[facility] [id number] [place] [address] [place] Neutrophils (Bld) [#/Vol] 3.19 10*3/uL Normal 1.45-7.50 [facility] Comment on above: Order Comment: Speci men Type: BLOOD SPECIMENOrdering Facility: [facility] Address: [address] Performed By: #### 5 7021-8 ####[facility] [id number] [place] [address] [place] Neutrophils/100 WBC (Bld) 60.1 % Normal [facility] Comment on above: Order Comment: Speci men Type: BLOOD SPECIMENOrdering Facility: [facility] Address: [address] [place] [address] Performed By: #### 5 7021-8 ####[facility] [id number] [place] [address] [place] Nucleated RBC (Bld) [#/Vol] 10*3/uL Normal <0.01 [facility] Comment on above: Order Comment: Speci men Type: BLOOD SPECIMENOrdering Facility: [facility] Address: [address] [place] [address] Performed By: #### 5 7021-8 ####[facility] [id number] [place] [address] [place] Nucleated RBC/100 WBC (Bld) [Ratio] 0.0 /100 WBC Normal [facility] Comment on above: Order Comment: Speci men Type: BLOOD SPECIMENOrdering Facility: [facility] Address: [address] [place] [address] Performed By: #### 5 7021-8 ####[facility] [id number] [place] [address] [place] Platelet mean volume (Bld) [Entitic vol] 9.4 fL Normal 9.0-12.7 [facility] Comment on above: Order Comment: Speci men Type: BLOOD SPECIMENOrdering Facility: [facility] Address: [address] [place] [address] Performed By: #### 5 7021-8 ####[facility] [id number] [place] [address] [place] Platelets (Bld) [#/Vol] 222 10*3/uL Normal 150-400 [facility] Comment on above: Order Comment: Speci men Type: BLOOD SPECIMENOrdering Facility: [facility] Address: [address] [place] [address] Performed By: #### 5 7021-8 ####[facility] [id number] [place] [address] [place] RBC (Bld) [#/Vol] 4.58 10*6/uL Normal 4.20-6.00 [facility] Comment on above: Order Comment: Speci men Type: BLOOD SPECIMENOrdering Facility: [facility] Address: [address] [place] [address] Performed By: #### 5 7021-8 ####[facility] [id number] [place] [address] [place] WBC (Bld) [#/Vol] 5.30 10*3/uL Normal 3.70-11.00 [facility] Comment on above: Order Comment: Speci men Type: BLOOD SPECIMENOrdering Facility: [facility] Address: [address] [place] [address] Performed By: #### 5 7021-8 ####[facility] [id number] [address] STATES OF [facility] [place] BLOOD TYPEon 023 ABO A Normal [facility] Comment on above: Order Comment: Speci men Type: BLOOD SPECIMENOrdering Facility: [facility] Address: [address] [place] [address] Performed By: #### C ONABO ####[facility] BLOOD BANKCLIA [id number] [place] [address] [place] Rh Nom (Bld) Negative Normal [facility] Comment on above: Order Comment: Speci men Type: BLOOD SPECIMENOrdering Facility: [facility] Address: [address] [place] [address] Performed By: #### C ONABO ####[facility] BLOOD BANKCLIA [id number] [place] [address] [place] Comprehensive metabolic 2000 panelon 11-21-2022 Albumin [Mass/Vol] 4.3 g/dL Normal 3.9-4.9 [facility] Comment on above: Order Comment: Speci men Type: BLOOD SPECIMENOrdering Facility: [facility] Address: [address] [place] [address] Performed By: #### 2 4323-8 ####[facility] [id number] [place] [address] [place] ALP [Catalytic activity/Vol] 68 U/L Normal 38-113 [facility] Comment on above: Order Comment: Speci men Type: BLOOD SPECIMENOrdering Facility: [facility] Address: [address] [place] [address] Performed By: #### 2 4323-8 ####[facility] [id number] [address] [place] ALT [Catalytic activity/Vol] 16 U/L Normal 10-54 [facility] Comment on above: Order Comment: Speci men Type: BLOOD SPECIMENOrdering Facility: [facility] Address: [address] [place] [address] Performed By: #### 2 4323-8 ####[facility] [id number] [place] [address] [place] Anion gap [Moles/Vol] 10 mmol/L Normal 9-18 [facility] Comment on above: Order Comment: Speci men Type: BLOOD SPECIMENOrdering Facility: [facility] Address: [address] [place] [address] Performed By: #### 2 4323-8 ####[facility] [id number] [place] [address] [place] AST [Catalytic activity/Vol] 21 U/L Normal 14-40 [facility] Comment on above: Order Comment: Speci men Type: BLOOD SPECIMENOrdering Facility: [facility] Address: [address] [place] [address] Performed By: #### 2 4323-8 ####[facility] [id number] [place] [address] [place] Bilirubin [Mass/Vol] 0.5 mg/dL Normal 0.2-1.3 [facility] Comment on above: Order Comment: Speci men Type: BLOOD SPECIMENOrdering Facility: [facility] Address: [address] [place] [address] Performed By: #### 2 4323-8 ####[facility] [id number] [place] [address] [place] Calcium [Mass/Vol] 9.9 mg/dL Normal 8.5-10.2 [facility] Comment on above: Order Comment: Speci men Type: BLOOD SPECIMENOrdering Facility: [facility] Address: [address] Performed By: #### 2 4323-8 ####[facility] [id number] [place] [address] [place] Chloride [Moles/Vol] 106 mmol/L High 97-105 [facility] Comment on above: Order Comment: Speci men Type: BLOOD SPECIMENOrdering Facility: [facility] Address: [address] [place] [address] Performed By: #### 2 4323-8 ####[facility] [id number] [place] [address] [place] CO2 [Moles/Vol] 27 mmol/L Normal 22-30 [facility] Comment on above: Order Comment: Speci men Type: BLOOD SPECIMENOrdering Facility: [facility] Address: [address] [place], [place] [address] Performed By: #### 2 4323-8 ####[facility] [id number] [place] [address] [place] Creatinine [Mass/Vol] 1.22 mg/dL Normal 0.73-1.22 [facility] Comment on above: Order Comment: Speci men Type: BLOOD SPECIMENOrdering Facility: [facility] Address: [address] Performed By: #### 2 4323-8 ####[facility] [id number] [place] [address] [place] Creatinine and Glomerular filtration rate.predicted panel (S/P/Bld) 68 mL/min/1.73m??? Normal >=60 [facility] Comment on above: Order Comment: Speci men Type: BLOOD SPECIMENOrdering Facility: [facility] Address: [address] [id number] Result Comment: Leah mated Glomerular Filtration Rate [...] actual GFR. Performed By: #### 2 4323-8 ####[facility] [id number] [place] [address] [place] Glucose [Mass/Vol] 111 mg/dL High 74-99 [facility] Comment on above: Order Comment: Shahrzad dumont Type: BLOOD SPECIMENOrdering Facility: [facility] Address: [address] [address] Result Comment: The [place] Diabetes Association (ADA) provides guidance for cutoff [...] Standards of Medical Care in Diabetes 2016, [place] Diabetes Association. Diabetes Care. 2016.39(Suppl 1). Performed By: #### 2 4323-8 ####[facility] [id number] [place] [address] [place] Potassium [Moles/Vol] 4.2 mmol/L Normal 3.7-5.1 [facility] Comment on above: Order Comment: Shahrzad dumont Type: BLOOD SPECIMENOrdering Facility: [facility] Address: [address] [address] Performed By: #### 2 4323-8 ####[facility] [id number] [place] [address] [place] Protein [Mass/Vol] 7.0 g/dL Normal 6.3-8.0 [facility] Comment on above: Order Comment: Speci men Type: BLOOD SPECIMENOrdering Facility: [facility] Address: [address] [place] [address] Performed By: #### 2 4323-8 ####[facility] [id number] [place] [address] [place] Sodium [Moles/Vol] 143 mmol/L Normal 136-144 [facility] Comment on above: Order Comment: Speci men Type: BLOOD SPECIMENOrdering Facility: [facility] Address: [address] [place] [address] Performed By: #### 2 4323-8 ####[facility] [id number] [address] STATES OF [facility] Urea nitrogen [Mass/Vol] 22 mg/dL Normal 9-24 [facility] Comment on above: Order Comment: Speci men Type: BLOOD SPECIMENOrdering Facility: [facility] Address: [address] [place] [address] Performed By: #### 2 4323-8 ####[facility] [id number] [address] [place] DIW50al 11-21-2022 ECG01 Ventricular Rate : 6 5 BPM Atrial Rate : 65 BPM P-R Interval : 180 ms QRS Duration : 98 ms Q-T Interval : 440 ms QTC Calculation(Bazett) : 457 ms Calculated P Mcdaniels : 0 degrees Calculated R Mcdaniels : -10 degrees Calculated T Mcdaniels : 49 degrees NORMAL SINUS RHYTHM NORMAL ECG Confirmed by SHANIA RESTREPO M.D. ([id number]) on 11/22/2022 12:00:34 PM NAME : SUKHDEEP SIMENTAL PID : [id number] : 1965 Gender : Male Race : ORD : Procedure Date : Nov 21 2022 10:59:49 Edit Date : Nov 22 2022 12:00:38 Diagnosis: NORMAL SINUS RHYTHM NORMAL ECG Confirmed by SHANIA RESTREPO M.D. ([id number]) on 11/22/2022 12:00:34 PM Test Reason : SURGERY Location : 545 : [facility] Overread By : SHANIA RESTREPO M.D. Edited By : SHANIA RESTREPO M.D. Referred By : THOMAS MATHEW Acquired by : Santiago DANIELLE [facility] HISTORY PHYSICALon HISTORY PHYSICAL HNO ID: [id number] Author: Maite Galloway APRN.[employer] Service: ? Author Type: Nurse Practitioner Type: HANDP Filed: 11/23/2022 8:29 AM Note Text: HISTORY AND PHYSICAL EXAMINATION SERVICE DATE: 11/21/2022 SERVICE TIME: 10:51 AM PRIMARY CARE PHYSICIAN: Blayne Isabel MD REASON FOR VISIT: Sukhdeep Simental [...] INTERSPACE (N/A) at the request of Dr. Thomas Mathew for consultation. My final recommendation will [...] pain. Skin: (more content not included)... Normal [facility] HbA1c (Bld)on 11-21-2022 Average glucose Estimated from glycated hemoglobin (Bld) [Mass/Vol] 111 mg/dL Normal [facility] Comment on above: Order Comment: Shahrzad dumont Type: BLOOD SPECIMENOrdering Facility: [facility] Address: [address] [address] Result Comment: eAG: (Estimated average glucose) is a calculated value from HgbA1c and is sales development representative of the average blood glucose level in the last 2-3 month period. Performed By: #### 5 5454-3 ####[facility] [id number] [place] [address] [place] HbA1c (Bld) [Mass fraction] 5.5 % Normal 4.3-5.6 [facility] Comment on above: Order Comment: Shahrzad dumont Type: BLOOD SPECIMENOrdering Facility: [facility] Address: [address] [address] Result Comment: [place] Diabetes Association guidelines indicate that patients with HgbA1c in the range 5.7-6.4% are at increased risk for development of diabetes, and intervention by lifestyle modification may be beneficial. HgbA1c greater or equal to 6.5% is considered diagnostic of diabetes. Performed By: #### 5 5454-3 ####[facility] [id number] [address] OF [place] TYPE AND SCREEN,30 DAYon ABO A Normal [facility] Comment on above: Order Comment: Speci men Type: BLOOD SPECIMENOrdering Facility: [facility] Address: [address] [place] [address] Performed By: #### T SCR30 ####[facility] BLOOD BANKCLIA [id number] [address] HISTORICAL AB SCR STATUS Negative Normal [facility] Comment on above: Order Comment: Speci men Type: BLOOD SPECIMENOrdering Facility: [facility] Address: [address] [place] [address] Performed By: #### T SCR30 ####[facility] BLOOD BANKCLIA [id number] [address] Rh Nom (Bld) Negative Normal [facility] Comment on above: Order Comment: Speci men Type: BLOOD SPECIMENOrdering Facility: [facility] Address: [address] [place] [address] Performed By: #### T SCR30 ####[facility] BLOOD BANKCLIA [id number] [address] ABD/PELVIS WO CONon 07-06 CT ABD/PELVIS [...] by: OBIE TSE Date: 2022-07-06 13:19 Normal [facility] PTH INTACTon 06-12-2022 PTH, Intact 38 pg/mL Normal 15-65 [facility] Comment on above: Performed By: #### P T #### [facility] [address] [place] [address] Dr. Hugh Landis FERRITINon 06-11-2022 Ferritin [Mass/Vol] 96.0 ng/mL Normal 26.0-388.0 [facility] Comment on above: Performed By: #### P T #### [facility] [address] [place] [address] Dr. Hugh Landis HEMOGRAM AND PLATELon 2022 Hematocrit (Bld) [Volume fraction] 39.1 % Critically low 42.0-54.0 [facility] Comment on above: Performed By: #### H H #### [facility] [address] [place] [address] Dr. Hugh Landis Hemoglobin (Bld) [Mass/Vol] 13.3 g/dL Critically low 14.0-18.0 [facility] Comment on above: Performed By: #### H H #### [facility] [address] [place] [address] Dr. Hugh Landis MCH (RBC) [Entitic mass] 30.5 pg Normal 25.9-34.0 [facility] Comment on above: Performed By: #### H H #### [facility] [address] [place] [address] Dr. Hugh Landis MCHC (RBC) [Mass/Vol] 34.0 g/dL Normal 29.9-35.2 [facility] Comment on above: Performed By: #### H H #### [facility] [address] [place] [address] Dr. Hugh Landis MCV (RBC) [Entitic vol] 89.7 fL Normal 80.0-94.0 [facility] Comment on above: Performed By: #### H H #### [facility] [address] [place] [address] Dr. Hugh Landis PLT 230 103/ul Normal 150-450 [facility] Comment on above: Performed By: #### H H #### [facility] [address] [address] [address] Hugh Landis RBC 4.36 106/ul Critically low 4.70-6.10 [facility] Comment on above: Performed By: #### H H #### [facility] [address] [address] [address] Hugh Landis WBC 4.8 103/ul Normal 4.0-11.0 [facility] Comment on above: Performed By: #### H H #### [facility] [address] [place] [address] Dr. Hugh Landis IRON AND TIBCon 06-11-2022 % SATURATION 55.0 % Normal [facility] Comment on above: Performed By: #### P T #### [facility] [address] [place] [address] Dr. Hugh Landis Iron [Mass/Vol] 137.0 ug/dL Normal 65.0-175.0 [facility] Comment on above: Performed By: #### P T #### [facility] [address] [place] [address] Dr. Hugh Landis TIBC DIRECT 249.0 ug/dL Critically low 250.0-450.0 [facility] Comment on above: Performed By: #### P T #### [facility] [address] [place] [address] Dr. Hugh Landis MAGNESIUMon 06-11-2022 Magnesium [Mass/Vol] 1.9 mg/dL Normal 1.8-2.4 [facility] Comment on above: Performed By: #### P TT #### [facility] [address] [address] [address] Hugh Landis RENAL FUNCTION PANELon 06-11 Albumin [Mass/Vol] 3.5 g/dL Normal 3.4-5.0 [facility] Comment on above: Performed By: #### P TT #### [facility] [address] [place] [address] Dr. Hugh Landis Calcium [Mass/Vol] 9.5 mg/dL Normal 8.5-10.1 [facility] Comment on above: Performed By: #### P TT #### [facility] [address] [place] [address] Dr. Hugh Landis Chloride [Moles/Vol] 107 mmol/L Normal 98-107 [facility] Comment on above: Performed By: #### P TT #### [facility] [address] [place] [address] Dr. Hugh Landis CO2 [Moles/Vol] 30.9 mmol/L Normal 21.0-32.0 [facility] Comment on above: Performed By: #### P TT #### [facility] [address] [place] [address] Dr. Hugh Landis Creatinine [Mass/Vol] 1.41 mg/dL Critically high 0.70-1.30 [facility] Comment on above: Performed By: #### P TT #### [facility] [address] [place] [address] Dr. Hugh Landis EGFR-AF GUYANESE >60 Normal >=60 [facility] Comment on above: Performed By: #### P TT #### [facility] [address] [place] [address] Dr. Hugh Landis EGFR-NON AF GUYANESE 52 mL/min/1.73m2 Critically low >=60 [facility] Comment on above: Performed By: #### P TT #### [facility] [address] [place] [address] Dr. Hugh Landis Glucose [Mass/Vol] 118 mg/dL Critically high 74-106 [facility] Comment on above: Performed By: #### P TT #### [facility] [address] [address] [address] Hugh Landis Phosphate [Mass/Vol] 3.0 mg/dL Normal 2.6-4.7 [facility] Comment on above: Performed By: #### P TT #### [facility] [address] [address] [address] Hugh Landis Potassium [Moles/Vol] 3.9 mmol/L Normal 3.5-5.1 [facility] Comment on above: Performed By: #### P TT #### [facility] [address] [place] [address] Dr. Hugh Landis Sodium [Moles/Vol] 143 mmol/L Normal 136-145 [facility] Comment on above: Performed By: #### P TT #### [facility] [address] [place] [address] Dr. Hugh Landis Urea nitrogen [Mass/Vol] 19.0 mg/dL Critically high 7.0-18.0 [facility] Comment on above: Performed By: #### P TT #### [facility] [address] [place] [address] Dr. Hugh Landis UA RANDOM W/MICROSCOPICon BACTERIA NONE SEEN Normal NONE SEEN [facility] Comment on above: Performed By: #### P T #### [facility] [address] [place] [address] Dr. Hugh Landis Bilirubin Ql (U) Negative Normal NEGATIVE [facility] Comment on above: Performed By: #### P T #### [facility] [address] [place] [address] Dr. Hugh Landis CAST NONE SEEN Normal NONE SEEN [facility] Comment on above: Performed By: #### P T #### [facility] [address] [place] [address] Dr. Hugh Landis Clarity (U) CLEAR Normal CLEAR [facility] Comment on above: Performed By: #### P T #### [facility] [address] [place] [address] Dr. Hugh Landis Color (U) YELLOW Normal YELLOW [facility] Comment on above: Performed By: #### P T #### [facility] [address] [place] [address] Dr. Hugh Landis Crystals LM Nom (Urine sed) NONE SEEN Normal NONE SEEN [facility] Comment on above: Performed By: #### P T #### [facility] [address] [place] [address] Dr. Hugh Landis Epithelial cells LM Ql (Urine sed) FEW Abnormal NONE SEEN /RARE [facility] Comment on above: Performed By: #### P T #### [facility] [address] [place] [address] Dr. Hugh Landis Glucose Ql (U) Negative Normal NEGATIVE [facility] Comment on above: Performed By: #### P T #### [facility] [address] [place] [address] Dr. Hugh Landis Hemoglobin Ql (U) Negative Normal NEGATIVE [facility] Comment on above: Performed By: #### P T #### [facility] [address] [place] [address] Dr. Hugh Landis Ketones Ql (U) TRACE Abnormal NEGATIVE [facility] Comment on above: Performed By: #### P T #### [facility] [address] [place] [address] Dr. Hugh Landis LEUKOCYTES Negative Normal NEGATIVE [facility] Comment on above: Performed By: #### P T #### [facility] [address] [place] [address] Dr. Hugh Landis MUCOUS MODERATE Abnormal NONE SEEN [facility] Comment on above: Performed By: #### P T #### [facility] [address] [place] [address] Dr. Hugh Landis Nitrite Ql (U) Negative Normal NEGATIVE [facility] Comment on above: Performed By: #### P T #### [facility] [address] [place] [address] Dr. Hugh Landis pH (U) 5.0 [pH] Normal 5-9 [facility] Comment on above: Performed By: #### P T #### [facility] [address] [place] [address] Dr. Hugh Landis RBC NONE SEEN Abnormal 0-2 [facility] Comment on above: Performed By: #### P T #### [facility] [address] [place] [address] Dr. Hugh Landis SPEC GRAVITY 1.025 Normal 1.005-<=1.02 5 [facility] Comment on above: Performed By: #### P T #### [facility] [address] [place] [address] Dr. Hugh Landis UA PROTEIN TRACE Normal NEGATIVE/ TRACE [facility] Comment on above: Performed By: #### P T #### [facility] [address] [place] [address] Dr. Hugh Landis Urobilinogen Qn (U) 0.2 {Dahiana'U}/dL Normal 0.2 - 1. 0 [facility] Comment on above: Performed By: #### P T #### [facility] [address] [place] [address] Dr. Hugh Landis WBC NONE SEEN Normal NONE SEEN [facility] Comment on above: Performed By: #### P T #### [facility] [address] [place] [address] Dr. Hugh Landis URIC ACID SERUMon 06-11-2022 Urate [Mass/Vol] 7.5 mg/dL Critically high 3.5-7.2 [facility] Comment on above: Performed By: #### P TT #### [facility] [address] [place] [address] Dr. Hugh Landis VITAMIN D 25 OHon 06-11-2022 VIT D 25-OH 35.0 ng/mL Normal [facility] Comment on above: Performed By: #### P T #### [facility] [address] [place] [address] Dr. Hugh Landis VIT D RANGES SEE BELOW Normal [facility] Comment on above: Result Comment: <20 ng/mL Vit D deficient 20 - <30 ng/mL Vit D insufficient 30 - 100 ng/mL Vit D sufficient >100 ng/mL Potential Toxicity Performed By: #### P T #### [facility] [address] [place] [address] Dr. Hugh Landis PROTIMEon 03-15-2022 INR Coag (PPP) [Relative time] 1.11 {INR} Normal [facility] Comment on above: Performed By: #### P T #### [facility] [address] [place] [address] Dr. Hugh Landis INR GUIDELINES SEE BELOW Normal [facility] Comment on above: Result Comment: VIC RED INR: 2.0 - 3.0 CONDITIONS NOT LISTED BELOW 2.5 - 3.5 FOR PROSTHETIC HEART VALVE REPLACEMENT 2.5 - 3.5 RECURRENT THROMBOSIS Performed By: #### P T #### [facility] [address] [place] [address] Dr. Hugh Landis PT Coag (PPP) [Time] 11.7 s Critically high 9.0-11.6 [facility] Comment on above: Performed By: #### P T #### [facility] [address] [place] [address] Dr. Hugh Landis UA (CLEAN/CATCH) SURGICAL ENDOSCOPIST/MICRO I F IND.on 03-15-2022 Bilirubin Ql (U) Negative Normal NEGATIVE [facility] Comment on above: Performed By: #### P TT #### [facility] [address] [place] [address] Dr. Hugh Landis Clarity (U) CLEAR Normal CLEAR [facility] Comment on above: Performed By: #### P TT #### [facility] [address] [place] [address] Dr. Hugh Landis Color (U) YELLOW Normal YELLOW [facility] Comment on above: Performed By: #### P TT #### [facility] [address] [place] [address] Dr. Hugh Landis Glucose Ql (U) Negative Normal NEGATIVE [facility] Comment on above: Performed By: #### P TT #### [facility] [address] [place] [address] Dr. Hugh Landis Hemoglobin Ql (U) SMALL Abnormal NEGATIVE [facility] Comment on above: Performed By: #### P TT #### [facility] [address] [place] [address] Dr. Hugh Landis Ketones Ql (U) Negative Normal NEGATIVE [facility] Comment on above: Performed By: #### P TT #### [facility] [address] [place] [address] Dr. Hugh Landis LEUKOCYTES Negative Normal NEGATIVE [facility] Comment on above: Performed By: #### P TT #### [facility] [address] [address] [address] Hugh Landis Nitrite Ql (U) Negative Normal NEGATIVE [facility] Comment on above: Performed By: #### P TT #### [facility] [address] [place] [address] Dr. Hugh Landis pH (U) 5.5 [pH] Normal 5-9 [facility] Comment on above: Performed By: #### P TT #### [facility] [address] [place] [address] Dr. Hugh Landis SPEC GRAVITY 1.025 Normal 1.005-<=1.02 5 [facility] Comment on above: Performed By: #### P TT #### [facility] [address] [place] [address] Dr. Hugh Landis UA PROTEIN Negative Normal NEGATIVE/ TRACE [facility] Comment on above: Performed By: #### P TT #### [facility] [address] [place] [address] Dr. Hugh Landis UR MICRO IND INDICATED Normal [facility] Comment on above: Performed By: #### P TT #### [facility] [address] [place] [address] Dr. Hugh Landis Urobilinogen Qn (U) 0.2 {Dahiana'U}/dL Normal 0.2 - 1. 0 [facility] Comment on above: Performed By: #### P TT #### [facility] [address] [place] [address] Dr. Hugh Landis URINE MICROSCOPIC ONLYon BACTERIA TRACE Abnormal NONE SEEN [facility] Comment on above: Performed By: #### P TT #### [facility] [address] [place] [address] Dr. Hugh Landis Bacteria identified Cx Nom (U) NOT INDICATED Normal [facility] Comment on above: Performed By: #### P TT #### [facility] [address] [place] [address] Dr. Hugh Landis CAST NONE SEEN Normal NONE SEEN [facility] Comment on above: Performed By: #### P TT #### [facility] [address] [place] [address] Dr. Hugh Landis Crystals LM Nom (Urine sed) NONE SEEN Normal NONE SEEN [facility] Comment on above: Performed By: #### P TT #### [facility] [address] [place] [address] Dr. Hugh Landis Epithelial cells LM Ql (Urine sed) RARE Normal NONE SEEN /RARE [facility] Comment on above: Performed By: #### P TT #### [facility] [address] [place] [address] Dr. Hugh Landis MUCOUS NONE SEEN Normal NONE SEEN [facility] Comment on above: Performed By: #### P TT #### [facility] [address] [place] [address] Dr. Hugh Landis RBC 0-2 Normal 0-2 [facility] Comment on above: Performed By: #### P TT #### [facility] [address] [place] [address] Dr. Hugh Landis WBC 0-2 Abnormal NONE SEEN [facility] Comment on above: Performed By: #### P TT #### [facility] [address] [place] [address] Dr. Hugh Landis MRSA NARES #1on 03-08-2022 MRSA NARES #1 Culture Observations : NO GROWTH OF MRSA AT 48 HOURS. Normal [facility] Comment on above: Performed By: #### B MP #### [facility] [address] [place] [address] Dr. Hugh Landis PROF CHEM 8 (BAS METB)on Anion gap [Moles/Vol] 9.9 mmol/L Normal [facility] Comment on above: Performed By: #### C MP, LIPID, TSH #### [facility] [address] [place] [address] Dr. Hugh Landis Calcium [Mass/Vol] 9.4 mg/dL Normal 8.5-10.1 [facility] Comment on above: Performed By: #### C MP, LIPID, TSH #### [facility] [address] [address] [address] Hugh Landis Chloride [Moles/Vol] 103 mmol/L Normal 98-107 [facility] Comment on above: Performed By: #### C MP, LIPID, TSH #### [facility] [address] [place] [address] Dr. Hugh Landis CO2 [Moles/Vol] 31.6 mmol/L Normal 21.0-32.0 [facility] Comment on above: Performed By: #### C MP, LIPID, TSH #### [facility] [address] [place] [address] Dr. Hugh Landis Creatinine [Mass/Vol] 1.25 mg/dL Normal 0.70-1.30 [facility] Comment on above: Performed By: #### C MP, LIPID, TSH #### [facility] [address] [place] [address] Dr. Hugh Landis EGFR-AF GUYANESE >60 Normal >=60 [facility] Comment on above: Performed By: #### C MP, LIPID, TSH #### [facility] [address] [place] [address] Dr. Hugh Landis EGFR-NON AF GUYANESE 59 mL/min/1.73m2 Critically low >=60 [facility] Comment on above: Performed By: #### C MP, LIPID, TSH #### [facility] [address] [place] [address] Dr. Hugh Landis Glucose [Mass/Vol] 110 mg/dL Critically high 74-106 [facility] Comment on above: Performed By: #### C MP, LIPID, TSH #### [facility] [address] [place] [address] Dr. Hugh Landis Potassium [Moles/Vol] 3.5 mmol/L Normal 3.5-5.1 [facility] Comment on above: Performed By: #### C MP, LIPID, TSH #### [facility] [address] [place] [address] Dr. Hugh Landis Sodium [Moles/Vol] 141 mmol/L Normal 136-145 [facility] Comment on above: Performed By: #### C MP, LIPID, TSH #### [facility] [address] [place] [address] Dr. Hugh Landis Urea nitrogen [Mass/Vol] 27.0 mg/dL Critically high 7.0-18.0 [facility] Comment on above: Performed By: #### C MP, LIPID, TSH #### [facility] [address] [address] [address] Hugh Landis Urea nitrogen/Creatinine [Mass ratio] 21.6 mg/mg Normal [facility] Comment on above: Performed By: #### C MP, LIPID, TSH #### [facility] [address] [place] [address] Dr. Hugh Landis PTTon 03-08-2022 aPTT Coag (Bld) [Time] 27.0 s Normal 22.3-36.2 [facility] Comment on above: Performed By: #### P TT #### [facility] [address] [place] [address] Dr. Hugh Landis INSULINon 01-25-2022 Insulin 11.1 uIU/mL Normal 2.6-24.9 [facility] Comment on above: Performed By: #### U TOMAS, TSH, CMP, LIPID, T7 #### [facility] [address] [place] [address] Dr. Hugh Landis CBC AUTO DIFFon 01-24-2022 BASO # 0.1 103/ul Normal 0.0-0.1 [facility] Comment on above: Performed By: #### C MP, LIPID, TSH #### [facility] [address] [place] [address] Dr. Hugh Landis Basophils/100 WBC (Bld) 1.3 % Normal 0.2-2.0 [facility] Comment on above: Performed By: #### C MP, LIPID, TSH #### [facility] [address] [place] [address] Dr. Hugh Landis EO # 0.2 103/ul Normal 0.0-0.7 [facility] Comment on above: Performed By: #### C MP, LIPID, TSH #### [facility] [address] [place] [address] Dr. Hugh Landis Eosinophils/100 WBC (Bld) 4.7 % Normal 0.9-7.0 [facility] Comment on above: Performed By: #### C MP, LIPID, TSH #### [facility] [address] [place] [address] Dr. Hugh Landis Erythrocyte distribution width (RBC) [Ratio] 12.6 % Normal 11.0-15.0 [facility] Comment on above: Performed By: #### C MP, LIPID, TSH #### [facility] [address] [place] [address] Dr. Hugh Landis Hematocrit (Bld) [Volume fraction] 39.1 % Critically low 42.0-54.0 [facility] Comment on above: Performed By: #### C MP, LIPID, TSH #### [facility] [address] [place] [address] Dr. Hugh Landis Hemoglobin (Bld) [Mass/Vol] 12.4 g/dL Critically low 14.0-18.0 [facility] Comment on above: Performed By: #### C MP, LIPID, TSH #### [facility] [address] [place] [address] Dr. Hugh Landis IG # 0.01 10e3/ul Normal 0.00-0.03 [facility] Comment on above: Performed By: #### C MP, LIPID, TSH #### [facility] [address] [place] [address] Dr. Hugh Landis IG % 0.2 % Normal 0.0-0.5 [facility] Comment on above: Performed By: #### C MP, LIPID, TSH #### [facility] [address] [address] [address] Hugh Landis LYMPH # 0.9 103/ul Critically low 1.2-3.8 [facility] Comment on above: Performed By: #### C MP, LIPID, TSH #### [facility] [address] [address] [address] Hugh Landis Lymphocytes/100 WBC (Bld) 19.4 % Critically low 20.5-60.0 [facility] Comment on above: Performed By: #### C MP, LIPID, TSH #### [facility] [address] [address] [address] Hugh Landis MANUAL DIFF REQ NO Normal [facility] Comment on above: Performed By: #### C MP, LIPID, TSH #### [facility] [address] [place] [address] Dr. Hugh Landis MCH (RBC) [Entitic mass] 29.2 pg Normal 25.9-34.0 [facility] Comment on above: Performed By: #### C MP, LIPID, TSH #### [facility] [address] [place] [address] Dr. Hugh Landis MCHC (RBC) [Mass/Vol] 31.7 g/dL Normal 29.9-35.2 [facility] Comment on above: Performed By: #### C MP, LIPID, TSH #### [facility] [address] [address] [address] Hugh Landis MCV (RBC) [Entitic vol] 92.0 fL Normal 80.0-94.0 [facility] Comment on above: Performed By: #### C MP, LIPID, TSH #### [facility] [address] [address] [address] Hugh Landis MONO # 0.5 103/ul Normal 0.3-0.8 [facility] Comment on above: Performed By: #### C MP, LIPID, TSH #### [facility] [address] [address] [address] Hugh Landis Monocytes/100 WBC (Bld) 9.6 % Normal 1.7-12.0 [facility] Comment on above: Performed By: #### C MP, LIPID, TSH #### [facility] [address] [address] [address] Hugh Landis NEUT # 3.0 103/ul Normal 1.4-6.5 [facility] Comment on above: Performed By: #### C MP, LIPID, TSH #### [facility] [address] [place] [address] Dr. Hugh Landis Neutrophils/100 WBC (Bld) 64.8 % Normal 43.0-75.0 [facility] Comment on above: Performed By: #### C MP, LIPID, TSH #### [facility] [address] [place] [address] Dr. Hugh Landis Platelet mean volume (Bld) [Entitic vol] 9.4 fL Critically low 9.5-13.5 [facility] Comment on above: Performed By: #### C MP, LIPID, TSH #### [facility] [address] [place] [address] Dr. Hugh Landis PLT 232 103/ul Normal 150-450 [facility] Comment on above: Performed By: #### C MP, LIPID, TSH #### [facility] [address] [place] [address] Dr. Hugh Landis RBC 4.25 106/ul Critically low 4.70-6.10 [facility] Comment on above: Performed By: #### C MP, LIPID, TSH #### [facility] [address] [place] [address] Dr. Hugh Landis WBC 4.7 103/ul Normal 4.0-11.0 [facility] Comment on above: Performed By: #### C MP, LIPID, TSH #### [facility] [address] [place] [address] Dr. Hugh Landis FREE THYROXINE INDEX T7on -2021 FTI 2.65 Normal 1.30-4.50 [facility] Comment on above: Performed By: #### B MP #### [facility] [address] [place] [address] Dr. Hugh Landis T3U 34.0 % Normal 33.0-40.0 [facility] Comment on above: Performed By: #### B MP #### [facility] [address] [address] [address] Hugh Landis T4 [Mass/Vol] 7.80 ug/dL Normal 4.50-12.[address] [facility] Comment on above: Performed By: #### B MP #### [facility] [address] [address] [address] Hugh Landis GLYCOHEMOGLOBIN A1Con 2021 ADA RECOMMENDATION SEE BELOW Normal [facility] Comment on above: Result Comment: ADA RECOMMENDED LIMIT 4.0 - 6.0 ADA THERAPEUTIC TARGET < 7.0 ACTION SUGGESTED > 7.0 Performed By: #### C MP, LIPID, TSH #### [facility] [address] [place] [address] Dr. Hugh Landis Glucose [Mass/Vol] 123 mg/dL Normal [facility] Comment on above: Performed By: #### C MP, LIPID, TSH #### [facility] [address] [place] [address] Dr. Hugh Landis HbA1c (Bld) [Mass fraction] 5.9 % Normal 4.5-6.2 [facility] Comment on above: Performed By: #### C MP, LIPID, TSH #### [facility] [address] [place] [address] Dr. Hugh Landis LIPID PROFILEon 01-24-2022 CHOL-HDL RATIO NORM SEE BELOW Normal [facility] Comment on above: Result Comment: 3.3 - 4.4 LOW RISK 4.4 - 7.1 AVERAGE RISK 7.1 - 11.0 MODERATE RISK >11.0 HIGH RISK Performed By: #### U TOMAS, TSH, CMP, LIPID, T7 #### [facility] [address] [place] [address] Dr. Hugh Landis Cholesterol [Mass/Vol] 179 mg/dL Normal <=200 [facility] Comment on above: Performed By: #### U TOMAS, TSH, CMP, LIPID, T7 #### [facility] [address] [place] [address] Dr. Hguh Landis Cholesterol in HDL [Mass/Vol] 46 mg/dL Normal 40-60 [facility] Comment on above: Performed By: #### U TOMAS, TSH, CMP, LIPID, T7 #### [facility] [address] [address] [address] Hugh Landis Cholesterol in LDL [Mass/Vol] 100.4 mg/dL Normal [facility] Comment on above: Performed By: #### U TOMAS, TSH, CMP, LIPID, T7 #### [facility] [address] [address] [address] Hugh Landis Cholesterol.total/Ch olesterol in HDL [Mass ratio] 3.9 {ratio} Normal [facility] Comment on above: Performed By: #### U TOMAS, TSH, CMP, LIPID, T7 #### [facility] [address] [address] [address] Hugh Landis HDL NORMAL > or = 60 mg/dl - LO W CARDIOVASCULAR RISK <40 mg/dl - HIGH CARDIOVASCULAR RISK Normal [facility] Comment on above: Performed By: #### U TOMAS, TSH, CMP, LIPID, T7 #### [facility] [address] [address] [address] Hugh Landis LDL CALC NORMAL SEE BELOW Normal [facility] Comment on above: Result Comment: <100 mg/dl OPTIMAL 100 - 129 mg/dl NEAR OR ABOVE OPTIMAL 130 - 159 mg/dl BORDERLINE HIGH 160 - 189 mg/dl HIGH >190 mg/dl VERY HIGH Performed By: #### U TOMAS, TSH, CMP, LIPID, T7 #### [facility] [address] [address] [address] Hugh Landis Triglyceride [Mass/Vol] 163 mg/dL Critically high <=150 [facility] Comment on above: Performed By: #### U TOMAS, TSH, CMP, LIPID, T7 #### [facility] [address] [address] [address] Hugh Landis VLDL CALC 32.6 mg/dL Normal [facility] Comment on above: Performed By: #### U TOMAS, TSH, CMP, LIPID, T7 #### [facility] [address] [place] [address] Dr. Hugh Landis PROF 14(COMP METB)on 022 Albumin [Mass/Vol] 3.6 g/dL Normal 3.4-5.0 [facility] Comment on above: Performed By: #### U TOMAS, TSH, CMP, LIPID, T7 #### [facility] [address] [place] [address] Dr. Hugh Landis Albumin/Globulin [Mass ratio] 0.9 {ratio} Normal [facility] Comment on above: Performed By: #### U TOMAS, TSH, CMP, LIPID, T7 #### [facility] [address] [place] [address] Dr. Hugh Landis ALP [Catalytic activity/Vol] 81 U/L Normal 46-116 [facility] Comment on above: Performed By: #### U TOMAS, TSH, CMP, LIPID, T7 #### [facility] [address] [place] [address] Dr. Hugh Landis ALT [Catalytic activity/Vol] 19 U/L Normal 16-63 [facility] Comment on above: Performed By: #### U TOMAS, TSH, CMP, LIPID, T7 #### [facility] [address] [place] [address] Dr. Hugh Landis Anion gap [Moles/Vol] 13.4 mmol/L Normal [facility] Comment on above: Performed By: #### U TOMAS, TSH, CMP, LIPID, T7 #### [facility] [address] [place] [address] Dr. Hugh Landis AST [Catalytic activity/Vol] 16 U/L Normal 15-37 [facility] Comment on above: Performed By: #### U TOMAS, TSH, CMP, LIPID, T7 #### [facility] [address] [place] [address] Dr. Hguh Landis Bilirubin [Mass/Vol] 0.5 mg/dL Normal 0.2-1.0 [facility] Comment on above: Performed By: #### U TOMAS, TSH, CMP, LIPID, T7 #### [facility] [address] [place] [address] Dr. Hugh Landis Calcium [Mass/Vol] 9.7 mg/dL Normal 8.5-10.1 [facility] Comment on above: Performed By: #### U TOMAS, TSH, CMP, LIPID, T7 #### [facility] [address] [address] [address] Hugh Landis Chloride [Moles/Vol] 105 mmol/L Normal 98-107 [facility] Comment on above: Performed By: #### U TOMAS, TSH, CMP, LIPID, T7 #### [facility] [address] [address] [address] Hugh Landis CO2 [Moles/Vol] 27.4 mmol/L Normal 21.0-32.0 [facility] Comment on above: Performed By: #### U TOMAS, TSH, CMP, LIPID, T7 #### [facility] [address] [address] [address] Hugh Landis Creatinine [Mass/Vol] 1.37 mg/dL Critically high 0.70-1.30 [facility] Comment on above: Performed By: #### U TOMAS, TSH, CMP, LIPID, T7 #### [facility] [address] [address] [address] Hugh Landis EGFR-AF GUYANESE >60 Normal >=60 [facility] Comment on above: Performed By: #### U TOMAS, TSH, CMP, LIPID, T7 #### [facility] [address] [address] [address] Hugh Landis EGFR-NON AF GUYANESE 53 mL/min/1.73m2 Critically low >=60 [facility] Comment on above: Performed By: #### U TOMAS, TSH, CMP, LIPID, T7 #### [facility] [address] [address] [address] Hugh Landis Globulin (S) [Mass/Vol] 4.0 g/dL Normal [facility] Comment on above: Performed By: #### U TOMAS, TSH, CMP, LIPID, T7 #### [facility] [address] [address] [address] Hugh Landis Glucose [Mass/Vol] 113 mg/dL Critically high 74-106 [facility] Comment on above: Performed By: #### U TOMAS, TSH, CMP, LIPID, T7 #### [facility] [address] [address] [address] Hugh Landis Potassium [Moles/Vol] 3.8 mmol/L Normal 3.5-5.1 [facility] Comment on above: Performed By: #### U TOMAS, TSH, CMP, LIPID, T7 #### [facility] [address] [address] [address] Hugh Landis Protein [Mass/Vol] 7.6 g/dL Normal 6.4-8.2 [facility] Comment on above: Performed By: #### U TOMAS, TSH, CMP, LIPID, T7 #### [facility] [address] [place] [address] Dr. Hugh Landis Sodium [Moles/Vol] 142 mmol/L Normal 136-145 [facility] Comment on above: Performed By: #### U TOMAS, TSH, CMP, LIPID, T7 #### [facility] [address] [place] [address] Dr. Hugh Landis Urea nitrogen [Mass/Vol] 21.0 mg/dL Critically high 7.0-18.0 [facility] Comment on above: Performed By: #### U TOMAS, TSH, CMP, LIPID, T7 #### [facility] [address] [place] [address] Dr. Hugh Landis Urea nitrogen/Creatinine [Mass ratio] 15.3 mg/mg Normal [facility] Comment on above: Performed By: #### U TOMAS, TSH, CMP, LIPID, T7 #### [facility] [address] [place] [address] Dr. Hugh Landis TSHon 01-24-2022 TSH 0.663 uIU/mL Normal 0.358-3.[address] [facility] Comment on above: Performed By: #### U TOMAS, TSH, CMP, LIPID, T7 #### [facility] [address] [place] [address] Dr. Hugh Landis URIC ACID SERUMon 01-24-2022 Urate [Mass/Vol] 6.9 mg/dL Normal 3.5-7.2 [facility] Comment on above: Performed By: #### B MP #### [facility] [address] [place] [address] Dr. Hugh Landis VITAMIN D 25 OHon 01-24-2022 VIT D 25-OH 37.0 ng/mL Normal [facility] Comment on above: Performed By: #### P TT #### [facility] [address] [place] [address] Dr. Hugh Landis VIT D RANGES SEE BELOW Normal [facility] Comment on above: Result Comment: <20 ng/mL Vit D deficient 20 - <30 ng/mL Vit D insufficient 30 - 100 ng/mL Vit D sufficient >100 ng/mL Potential Toxicity Performed By: #### P TT #### [facility] [address] [place] [address] Dr. Hugh Landis US KIDNEYSon 12-21-2021 US KIDNEYS EXAMINATION: US [...] by: OBIE TSE Date: 2021-12-21 17:34 Normal [facility] XR ABD FLAT UP_PA Barrett 12-21 XR [...] by: AUSTIN LARIOS Date: 2021-12-21 18:13 Normal [facility] Urine culture routineOrdered By: Estephanie Lowry on 12-17-2021 Bacteria identified Cx Nom (U) No Growth 2 Days [facility] Chlamydia trachomatis DNA [P resence] in Specimen by MUKUL with probe detectionOrdered By: Estephanie Lowry on 12-15-2021 C. trachomatis DNA MUKUL+probe Ql (Unsp spec) Negative Negative [facility] Chlamydia/GC/Trich NAAon Chlamydia Trachomotis, MUKUL Negative Normal Negative [facility] Comment on above: Order Comment: Reaso n for Exam Dysuria Performed By: #### G CCHLAMTRI #### [facility] , #### CUU #### [facility] [address] Neisseria Gonorrhoeae, MUKUL Negative Normal Negative [facility] Comment on above: Order Comment: Reaso n for Exam Dysuria Performed By: #### G CCHLAMTRI #### [facility] , #### CUU #### [facility] [address] [place] [address] [place] Trichomonas MUKUL Negative Normal Negative [facility] Comment on above: Order Comment: Reaso n for Exam Dysuria Result Comment: Perf ormed at: =G - [facility] [address] [id number] [place] Sifter: Shoshana Camargo MD, Phone: [phone] PERFORMED BY: [address] [id number] PATHOLOGIST EMBOSSER APPRENTICE SABRA SAUNDERS M.D. Performed By: #### G CCHLAMTRI #### [facility] , #### CUU #### [facility] [address] [id number] [facility] Chlamydia/GC/Trich MUKUL Negative Negative [employer] Other Neisseria gonorrhoeae DNA [P resence] in Specimen by MUKUL with probe detectionOrdered By: Estephanie Lowry on 12-15-2021 N. gonorrhoeae DNA MUKUL+probe Ql (Unsp spec) Negative Negative [facility] Trichomonas vaginalis DNA [P resence] in Specimen by MUKUL with probe detectionOrdered By: Estephanie Lowry on 12-15-2021 T. vaginalis DNA MUKUL+probe Ql (Unsp spec) Negative Negative [facility] Comment on above: Performed at: =[address] [id number] Director: Shoshana Camargo MD, Phone: [phone] Urinalysis - AUTOMATEDon Appearance (U) clear [employer] Other Bilirubin Ql (U) Negative [employer] Other Color (U) orange [employer] Other Glucose Ql (U) Negative [employer] Other Hemoglobin Ql (U) moderate [employer] Other Ketones Ql (U) Negative [employer] Other Leukocyte esterase Test strip Ql (U) Negative [employer] Other Nitrite Ql (U) Positive [employer] Other pH (U) 5.5 [pH] [employer] Other Protein Ql (U) Negative [employer] Other Specific gravity (U) [Rel density] 1.015 [employer] Other Urobilinogen (U) [Mass/Vol] 0.2 mg/dL [employer] Other Urinalysis - AUTOMATED [employer] Other Urine Cultureon 12-15-2021 Bacteria identified Cx Nom (U) Reason for Exam Dysuria Urine No Growth 2 Days PERFORMED BY: [place] [address] PATHOLOGIST EMBOSSER APPRENTICE SABRA SAUNDERS M.D. Normal [facility] Comment on above: Performed By: #### G CCHLAMTRI #### [facility] , #### CUU #### [address] Bacteria identified Cx Nom (U) [address] [facility] [employer] Other CULTURE URINEon 11-24-2021 CULTURE URINE Culture Observations : NO GROWTH. Normal [facility] Comment on above: Performed By: #### B MP #### [facility] [address] [address] [address] Hugh Landis PROTEIN ELECTROPHERESIS URIN E RANDOMon 11-17-2021 Albumin, U 33.4 % Normal [facility] Comment on above: Performed By: #### C MP, LIPID, TSH #### [facility] [address] [address] [address] Hugh Landis Alpha-1 Globulin U 4.7 % Normal [facility] Comment on above: Performed By: #### C MP, LIPID, TSH #### [facility] [address] [address] [address] Hugh Landis Alpha-2 Glubulin U 18.6 % Normal [facility] Comment on above: Performed By: #### C MP, LIPID, TSH #### [facility] [address] [address] [address] Hugh Landis Beta Globulin, U 19.9 % Normal [facility] Comment on above: Performed By: #### C MP, LIPID, TSH #### [facility] [address] [address] [address] Hugh Landis Gamma Globulin U 23.4 % Normal [facility] Comment on above: Performed By: #### C MP, LIPID, TSH #### [facility] [address] [address] [address] Hugh Landis M-Tariq, % Not Observed Normal Not Observed [facility] [place] [facility] Comment on above: Performed By: #### C MP, LIPID, TSH #### [facility] [address] [address] [address] Hugh Landis PDF . Normal [facility] Comment on above: Performed By: #### C MP, LIPID, TSH #### [facility] [address] [address] [address] Hugh Landis Please note: Comment Normal [facility] Comment on above: Result Comment: Prot ein electrophoresis scan will follow via computer, mail, or supervisor lime delivery. Performed By: #### C MP, LIPID, TSH #### [facility] [address] [address] [address] Hugh Landis Protein (U) [Mass/Vol] 4.9 mg/dL Normal Not Estab. [facility] Comment on above: Performed By: #### C MP, LIPID, TSH #### [facility] [address] [address] [address] Hugh Landis IMMUNOFIXATION(PRINCE),PROTEIN ELEC(PE),FREon 11-16-2021 Albumin [Mass/Vol] 3.4 g/dL Normal 2.9-4.4 [facility] Comment on above: Performed By: #### C MP, LIPID, TSH #### [facility] [address] [address] [address] Hugh Landis Albumin/Globulin [Mass ratio] 1.0 {ratio} Normal 0.7-1.7 [facility] Comment on above: Performed By: #### C MP, LIPID, TSH #### [facility] [address] [address] [address] Hugh Landis Ilmim-2-Dzpaqpsd 0.2 g/dL Normal 0.0-0.4 [facility] Comment on above: Performed By: #### C MP, LIPID, TSH #### [facility] [address] [place] [address] Dr. Hugh Landis Grbzo-4-Mbagcwfs 1.1 g/dL Critically high 0.4-1.0 [facility] Comment on above: Performed By: #### C MP, LIPID, TSH #### [facility] [address] [place] [address] Dr. Hugh Landis Beta Globulin 1.0 g/dL Normal 0.7-1.3 The [facility] Comment on above: Performed By: #### C MP, LIPID, TSH #### [facility] [address] [place] [address] Dr. Hugh Landis Free [place] Lt Chains,S 35.7 mg/L Critically high 3.3-19.4 [facility] Comment on above: Performed By: #### C MP, LIPID, TSH #### [facility] [address] [place] [address] Dr. Hugh Landis Free Lambda Lt Chains,S 21.1 mg/L Normal 5.7-26.3 [facility] Comment on above: Performed By: #### C MP, LIPID, TSH #### [facility] [address] [place] [address] Dr. Hugh Landis Gamma Globulin 1.2 g/dL Normal 0.4-1.8 [facility] [place] [facility] Comment on above: Performed By: #### C MP, LIPID, TSH #### [facility] [address] [place] [address] Dr. Hugh Landis Globulin (S) [Mass/Vol] 3.5 g/dL Normal 2.2-3.9 [facility] Comment on above: Performed By: #### C MP, LIPID, TSH #### [facility] [address] [place] [address] Dr. Hugh Landis Immunofixation Result, Serum Comment Normal [facility] Comment on above: Result Comment: No m onoclonality detected. Performed By: #### C MP, LIPID, TSH #### [facility] [address] [address] [address] Hugh Landis Immunoglobulin A, Qn, Serum 228 mg/dL Normal 90-386 [facility] Comment on above: Performed By: #### C MP, LIPID, TSH #### [facility] [address] [address] [address] Hugh Landis Immunoglobulin G, Qn, Serum 1221 mg/dL Normal 603-1613 [facility] Comment on above: Performed By: #### C MP, LIPID, TSH #### [facility] [address] [address] [address] Hugh Landis Immunoglobulin M, Qn, Serum 79 mg/dL Normal 20-172 [facility] Comment on above: Performed By: #### C MP, LIPID, TSH #### [facility] [address] [place] [address] Dr. Hugh Landis [place]/Lambda Ratio, S 1.69 Critically high 0.26-1.65 [facility] Comment on above: Performed By: #### C MP, LIPID, TSH #### [facility] [address] [address] [address] Hugh Landis M-Tariq Not Observed Normal Not Observed [facility] [place] [facility] Comment on above: Performed By: #### C MP, LIPID, TSH #### [facility] [address] [address] [address] Hugh Landis PDF . Normal [facility] Comment on above: Performed By: #### C MP, LIPID, TSH #### [facility] [address] [address] [address] Hugh Landis Please note: Comment Normal [facility] Comment on above: Result Comment: Prot ein electrophoresis scan will follow via computer, mail, or supervisor lime delivery. Performed By: #### C MP, LIPID, TSH #### [facility] [address] [place] [address] Dr. Hugh Landis Protein [Mass/Vol] 6.9 g/dL Normal 6.0-8.5 [facility] Comment on above: Performed By: #### C MP, LIPID, TSH #### [facility] [address] [address] [address] Hugh Landis PROTEIN AND CREA RANDOM UR R ATIOon 11-16-2021 Creatinine, Urine 54.8 mg/dL Normal Not Estab. [facility] Comment on above: Performed By: #### C MP, LIPID, TSH #### [facility] [address] [place] [address] Dr. Hugh Landis Protein (U) [Mass/Vol] 4.1 mg/dL Normal Not Estab. [facility] Comment on above: Performed By: #### C MP, LIPID, TSH #### [facility] [address] [address] [address] Hugh Landis Protein/Creat Ratio 75 mg/g creat Normal 0-200 [facility] Comment on above: Performed By: #### C MP, LIPID, TSH #### [facility] [address] [place] [address] Dr. Hugh Landis PTH INTACTon 11-15-2021 PTH, Intact 39 pg/mL Normal 15-65 [facility] Comment on above: Performed By: #### P T #### [facility] [address] [place] [address] Dr. Hugh Landis UA RANDOM W/MICROSCOPICon BACTERIA NONE SEEN Normal NONE SEEN [facility] Comment on above: Performed By: #### P TT #### [facility] [address] [place] [address] Dr. Hugh Landis Bilirubin Ql (U) Negative Normal NEGATIVE [facility] Comment on above: Performed By: #### P TT #### [facility] [address] [place] [address] Dr. Hugh Landis CAST NONE SEEN Normal NONE SEEN [facility] Comment on above: Performed By: #### P TT #### [facility] [address] [place] [address] Dr. Hugh Landis Clarity (U) CLEAR Normal CLEAR [facility] Comment on above: Performed By: #### P TT #### [facility] [address] [place] [address] Dr. Hugh Landis Color (U) LT. YELLOW Normal YELLOW [facility] Comment on above: Performed By: #### P TT #### [facility] [address] [place] [address] Dr. Hugh Landis Crystals LM Nom (Urine sed) NONE SEEN Normal NONE SEEN [facility] Comment on above: Performed By: #### P TT #### [facility] [address] [place] [address] Dr. Hugh Landis Epithelial cells LM Ql (Urine sed) NONE SEEN Normal NONE SEEN /RARE [facility] Comment on above: Performed By: #### P TT #### [facility] [address] [place] [address] Dr. Hugh Landis Glucose Ql (U) Negative Normal NEGATIVE [facility] Comment on above: Performed By: #### P TT #### [facility] [address] [place] [address] Dr. Hugh Landis Hemoglobin Ql (U) MODERATE Abnormal NEGATIVE [facility] Comment on above: Performed By: #### P TT #### [facility] [address] [place] [address] Dr. Hugh Landis Ketones Ql (U) Negative Normal NEGATIVE [facility] Comment on above: Performed By: #### P TT #### [facility] [address] [place] [address] Dr. Hugh Landis LEUKOCYTES Negative Normal NEGATIVE [facility] Comment on above: Performed By: #### P TT #### [facility] [address] [place] [address] Dr. Hugh Landis MUCOUS NONE SEEN Normal NONE SEEN [facility] Comment on above: Performed By: #### P TT #### [facility] [address] [place] [address] Dr. Hugh Landis Nitrite Ql (U) Negative Normal NEGATIVE [facility] Comment on above: Performed By: #### P TT #### [facility] [address] [place] [address] Dr. Hugh Landis pH (U) 5.5 [pH] Normal 5-9 [facility] Comment on above: Performed By: #### P TT #### [facility] [address] [place] [address] Dr. Hugh Landis RBC 5-10 Abnormal 0-2 [facility] Comment on above: Performed By: #### P TT #### [facility] [address] [place] [address] Dr. Hugh Landis SPEC GRAVITY 1.010 Normal 1.005-<=1.02 5 [facility] Comment on above: Performed By: #### P TT #### [facility] [address] [place] [address] Dr. Hugh Landis UA PROTEIN Negative Normal NEGATIVE/ TRACE [facility] Comment on above: Performed By: #### P TT #### [facility] [address] [place] [address] Dr. Hugh Landis Urobilinogen Qn (U) 0.2 {Dahiana'U}/dL Normal 0.2 - 1. 0 [facility] Comment on above: Performed By: #### P TT #### [facility] [address] [place] [address] Dr. Hugh Landis WBC 0-2 Abnormal NONE SEEN [facility] Comment on above: Performed By: #### P TT #### [facility] [address] [place] [address] Dr. Hugh Landis URINE T PROTEIN CREAT RATIOo n 11-15-2021 Protein (U) [Mass/Vol] 10.0 mg/dL Normal <=12.0 [facility] Comment on above: Performed By: #### B MP #### [facility] [address] [place] [address] Dr. Hugh Landis UR PROT CREAT RAT 0.18 Normal [facility] Comment on above: Performed By: #### B MP #### [facility] [address] [place] [address] Dr. Hugh Landis URINE CREAT 57.11 mg/dL Normal 20.00-300.00 [facility] Comment on above: Performed By: #### B MP #### [facility] [address] [place] [address] Dr. Hugh Landis FERRITINon 11-14-2021 Ferritin [Mass/Vol] 95.0 ng/mL Normal 26.0-388.0 [facility] Comment on above: Performed By: #### C MP, LIPID, TSH #### [facility] [address] [place] [address] Dr. Hugh Landis HEMOGRAM AND PLATELon 2021 Hematocrit (Bld) [Volume fraction] 35.7 % Critically low 42.0-54.0 [facility] Comment on above: Performed By: #### U TOMAS, TSH, CMP, LIPID, T7 #### [facility] [address] [place] [address] Dr. Hugh Landis Hemoglobin (Bld) [Mass/Vol] 11.5 g/dL Critically low 14.0-18.0 [facility] Comment on above: Performed By: #### U TOMAS, TSH, CMP, LIPID, T7 #### [facility] [address] [place] [address] Dr. Hugh Landis MCH (RBC) [Entitic mass] 30.3 pg Normal 25.9-34.0 [facility] Comment on above: Performed By: #### U TOMAS, TSH, CMP, LIPID, T7 #### [facility] [address] [place] [address] Dr. Hugh Landis MCHC (RBC) [Mass/Vol] 32.2 g/dL Normal 29.9-35.2 [facility] Comment on above: Performed By: #### U TOMAS, TSH, CMP, LIPID, T7 #### [facility] [address] [place] [address] Dr. Hugh Landis MCV (RBC) [Entitic vol] 93.9 fL Normal 80.0-94.0 [facility] Comment on above: Performed By: #### U TOMAS, TSH, CMP, LIPID, T7 #### [facility] [address] [place] [address] Dr. Hugh Landis PLT 254 103/ul Normal 150-450 [facility] Comment on above: Performed By: #### U TOMAS, TSH, CMP, LIPID, T7 #### [facility] [address] [address] [address] Hugh Landis RBC 3.80 106/ul Critically low 4.70-6.10 [facility] Comment on above: Performed By: #### U TOMAS, TSH, CMP, LIPID, T7 #### [facility] [address] [address] [address] Hugh Landis WBC 6.4 103/ul Normal 4.0-11.0 [facility] Comment on above: Performed By: #### U TOMAS, TSH, CMP, LIPID, T7 #### [facility] [address] [address] [address] Hugh Landis IRON AND TIBCon 11-14-2021 % SATURATION 27.6 % Normal [facility] Comment on above: Performed By: #### C MP, LIPID, TSH #### [facility] [address] [place] [address] Dr. Hugh Landis Iron [Mass/Vol] 68.0 ug/dL Normal 65.0-175.0 [facility] Comment on above: Performed By: #### C MP, LIPID, TSH #### [facility] [address] [address] [address] Hugh Landis TIBC DIRECT 246.0 ug/dL Critically low 250.0-450.0 [facility] Comment on above: Performed By: #### C MP, LIPID, TSH #### [facility] [address] [place] [address] Dr. Hugh Landis MAGNESIUMon 11-14-2021 Magnesium [Mass/Vol] 1.8 mg/dL Normal 1.8-2.4 [facility] Comment on above: Performed By: #### U TOMAS, TSH, CMP, LIPID, T7 #### [facility] [address] [address] [address] Hugh Landis RENAL FUNCTION PANELon 11-14 Albumin [Mass/Vol] 3.4 g/dL Normal 3.4-5.0 [facility] Comment on above: Performed By: #### U TOMAS, TSH, CMP, LIPID, T7 #### [facility] [address] [place] [address] Dr. Hugh Landis Calcium [Mass/Vol] 9.1 mg/dL Normal 8.5-10.1 [facility] Comment on above: Performed By: #### U TOMAS, TSH, CMP, LIPID, T7 #### [facility] [address] [address] [address] Hugh Landis Chloride [Moles/Vol] 105 mmol/L Normal 98-107 [facility] Comment on above: Performed By: #### U TOMAS, TSH, CMP, LIPID, T7 #### [facility] [address] [address] [address] Hugh Landis CO2 [Moles/Vol] 29.2 mmol/L Normal 21.0-32.0 [facility] Comment on above: Performed By: #### U TOMAS, TSH, CMP, LIPID, T7 #### [facility] [address] [place] [address] Dr. Hugh Landis Creatinine [Mass/Vol] 1.62 mg/dL Critically high 0.70-1.30 [facility] Comment on above: Performed By: #### U TOMAS, TSH, CMP, LIPID, T7 #### [facility] [address] [address] [address] Hugh Landis EGFR-AF GUYANESE 53 mL/min/1.73m2 Critically low >=60 [facility] Comment on above: Performed By: #### U TOMAS, TSH, CMP, LIPID, T7 #### [facility] [address] [address] [address] Hugh Landis EGFR-NON AF GUYANESE 44 mL/min/1.73m2 Critically low >=60 [facility] Comment on above: Performed By: #### U TOMAS, TSH, CMP, LIPID, T7 #### [facility] [address] [address] [address] Hugh Landis Glucose [Mass/Vol] 136 mg/dL Critically high 74-106 [facility] Comment on above: Performed By: #### U TOMAS, TSH, CMP, LIPID, T7 #### [facility] [address] [address] [address] Hugh Landis Phosphate [Mass/Vol] 2.8 mg/dL Normal 2.6-4.7 [facility] Comment on above: Performed By: #### U TOMAS, TSH, CMP, LIPID, T7 #### [facility] [address] [place] [address] Dr. Hugh Landis Potassium [Moles/Vol] 3.1 mmol/L Critically low 3.5-5.1 [facility] Comment on above: Performed By: #### U TOMAS, TSH, CMP, LIPID, T7 #### [facility] [address] [place] [address] Dr. Hugh Landis Sodium [Moles/Vol] 141 mmol/L Normal 136-145 [facility] Comment on above: Performed By: #### U TOMAS, TSH, CMP, LIPID, T7 #### [facility] [address] [place] [address] Dr. Hugh Landis Urea nitrogen [Mass/Vol] 19.0 mg/dL Critically high 7.0-18.0 [facility] Comment on above: Performed By: #### U TOMAS, TSH, CMP, LIPID, T7 #### [facility] [address] [place] [address] Dr. Hugh Landis URIC ACID SERUMon 11-14-2021 Urate [Mass/Vol] 8.7 mg/dL Critically high 3.5-7.2 [facility] Comment on above: Performed By: #### U TOMAS, TSH, CMP, LIPID, T7 #### [facility] [address] [place] [address] Dr. Hugh Landis VIT B12 AND FOLATEon 022 Cobalamin (Vitamin B12) [Mass/Vol] 373.0 pg/mL Normal 193.0-986.0 [facility] Comment on above: Performed By: #### U TOMAS, TSH, CMP, LIPID, T7 #### [facility] [address] [place] [address] Dr. uHgh Landis FOLATE 14.00 ng/mL Normal 8.60-58.90 [facility] Comment on above: Performed By: #### U TOMAS, TSH, CMP, LIPID, T7 #### [facility] [address] [place], [place] [address] Dr. Hugh Landis VITAMIN D 25 OHon 11-14-2021 VIT D 25-OH 33.8 ng/mL Normal [facility] Comment on above: Performed By: #### U TOMAS, TSH, CMP, LIPID, T7 #### [facility] [address] [place], [place] [address] Dr. Hugh Landis VIT D RANGES SEE BELOW Normal [facility] Comment on above: Result Comment: <20 ng/mL Vit D deficient 20 - <30 ng/mL Vit D insufficient 30 - 100 ng/mL Vit D sufficient >100 ng/mL Potential Toxicity Performed By: #### U TOMAS, TSH, CMP, LIPID, T7 #### [facility] [id number] Hugh Landis US KIDNEYS BLADDERon 022 [...] by: AUSTIN LARIOS Date: 2021-11-01 16:44 Normal [facility] XR CHEST 2 Von 11-01-2021 XR CHEST [...] by: OBIE TSE Date: 2021-11-01 06:51 Normal [facility] NM LUNG VENT_PERFon 11-01-19 22 NM LUNG VENT_PERF EXAM: NM LUNG VENT_PERF HISTORY: Dyspnea COMPARISON: Chest x-ray 10/31/2021 TECHNIQUE: 6.1 mCi technetium MAA. 24.9 mCi technetium DTPA. FINDINGS: Perfusion images demonstrate no segmental perfusion defects to suggest acute pulmonary embolism Ventilation images are normal without ventilation defects. IMPRESSION: Normal ventilation/perfusion scan Electronically authenticated by: JASPER SCHRADER Date: 2021-10-31 12:35 Normal [facility] PROF CHEM 8 (BAS METB)on Anion gap [Moles/Vol] 17.5 mmol/L Normal [facility] Comment on above: Performed By: #### B MP #### [facility] [address] [place] [address] Dr. Hugh Landis Calcium [Mass/Vol] 9.4 mg/dL Normal 8.5-10.1 [facility] Comment on above: Performed By: #### B MP #### [facility] [address] [place] [address] Dr. Hugh Landis Chloride [Moles/Vol] 100 mmol/L Normal 98-107 [facility] Comment on above: Performed By: #### B MP #### [facility] [address] [address] [address] Hugh Landis CO2 [Moles/Vol] 22.8 mmol/L Normal 21.0-32.0 [facility] Comment on above: Performed By: #### B MP #### [facility] [address] [address] [address] Hugh Landis Creatinine [Mass/Vol] 2.69 mg/dL Critically high 0.70-1.30 [facility] Comment on above: Performed By: #### B MP #### [facility] [address] [address] [address] Hugh Landis EGFR-AF GUYANESE 30 mL/min/1.73m2 Critically low >=60 [facility] Comment on above: Performed By: #### B MP #### [facility] [address] [address] [address] Hugh Landis EGFR-NON AF GUYANESE 24 mL/min/1.73m2 Critically low >=60 [facility] Comment on above: Performed By: #### B MP #### [facility] [address] [address] [address] Hugh Landis Glucose [Mass/Vol] 117 mg/dL Critically high 74-106 [facility] Comment on above: Performed By: #### B MP #### [facility] [address] [address] [address] Hugh Landis Potassium [Moles/Vol] 4.3 mmol/L Normal 3.5-5.1 [facility] Comment on above: Performed By: #### B MP #### [facility] [address] [place] [address] Dr. Hugh Landis Sodium [Moles/Vol] 136 mmol/L Normal 136-145 [facility] Comment on above: Performed By: #### B MP #### [facility] [address] [place] [address] Dr. Hugh Landis Urea nitrogen [Mass/Vol] 41.0 mg/dL Critically high 7.0-18.0 [facility] Comment on above: Performed By: #### B MP #### [facility] [address] [address] [address] Hugh Landis Urea nitrogen/Creatinine [Mass ratio] 15.2 mg/mg Normal [facility] Comment on above: Performed By: #### B MP #### [facility] [address] [place] [address] Dr. Hugh Landis CBC AUTO DIFFon 10-16-2021 BASO # 0.0 103/ul Normal 0.0-0.1 [facility] Comment on above: Performed By: #### P T #### [facility] [address] [place] [address] Dr. Hugh Landis Basophils/100 WBC (Bld) 0.6 % Normal 0.2-2.0 [facility] Comment on above: Performed By: #### P T #### [facility] [address] [place] [address] Dr. Hugh Landis EO # 0.2 103/ul Normal 0.0-0.7 [facility] Comment on above: Performed By: #### P T #### [facility] [address] [place] [address] Dr. Hugh Landis Eosinophils/100 WBC (Bld) 2.3 % Normal 0.9-7.0 [facility] Comment on above: Performed By: #### P T #### [facility] [address] [place] [address] Dr. Hugh Landis Erythrocyte distribution width (RBC) [Ratio] 12.7 % Normal 11.0-15.0 [facility] Comment on above: Performed By: #### P T #### [facility] [address] [place] [address] Dr. Hugh Landis Hematocrit (Bld) [Volume fraction] 36.2 % Critically low 42.0-54.0 [facility] Comment on above: Performed By: #### P T #### [facility] [address] [place] [address] Dr. Hugh Landis Hemoglobin (Bld) [Mass/Vol] 11.5 g/dL Critically low 14.0-18.0 [facility] Comment on above: Performed By: #### P T #### [facility] [address] [place] [address] Dr. Hugh Landis IG # 0.02 10e3/ul Normal 0.00-0.03 [facility] Comment on above: Performed By: #### P T #### [facility] [address] [place] [address] Dr. Hugh Landis IG % 0.3 % Normal 0.0-0.5 [facility] Comment on above: Performed By: #### P T #### [facility] [address] [place] [address] Dr. Hugh Landis LYMPH # 1.4 103/ul Normal 1.2-3.8 [facility] Comment on above: Performed By: #### P T #### [facility] [address] [place] [address] Dr. Hugh Landis Lymphocytes/100 WBC (Bld) 21.3 % Normal 20.5-60.0 [facility] Comment on above: Performed By: #### P T #### [facility] [address] [place] [address] Dr. Hugh Landis MANUAL DIFF REQ NO Normal [facility] Comment on above: Performed By: #### P T #### [facility] [address] [place] [address] Dr. Hugh Landis MCH (RBC) [Entitic mass] 29.6 pg Normal 25.9-34.0 [facility] Comment on above: Performed By: #### P T #### [facility] [address] [place] [address] Dr. Hugh Landis MCHC (RBC) [Mass/Vol] 31.8 g/dL Normal 29.9-35.2 [facility] Comment on above: Performed By: #### P T #### [facility] [address] [place] [address] Dr. Hugh Landis MCV (RBC) [Entitic vol] 93.1 fL Normal 80.0-94.0 [facility] Comment on above: Performed By: #### P T #### [facility] [address] [place] [address] Dr. Hugh Landis MONO # 0.8 103/ul Normal 0.3-0.8 [facility] Comment on above: Performed By: #### P T #### [facility] [address] [place] [address] Dr. Hugh Landis Monocytes/100 WBC (Bld) 11.5 % Normal 1.7-12.0 [facility] Comment on above: Performed By: #### P T #### [facility] [address] [place] [address] Dr. uHgh Landis NEUT # 4.2 103/ul Normal 1.4-6.5 [facility] Comment on above: Performed By: #### P T #### [facility] [address] [place] [address] Dr. Hugh Landis Neutrophils/100 WBC (Bld) 64.0 % Normal 43.0-75.0 [facility] Comment on above: Performed By: #### P T #### [facility] [address] [place] [address] Dr. Hugh Landis Platelet mean volume (Bld) [Entitic vol] 9.2 fL Critically low 9.5-13.5 [facility] Comment on above: Performed By: #### P T #### [facility] [address] [place] [address] Dr. Hugh Landis PLT 241 103/ul Normal 150-450 [facility] Comment on above: Performed By: #### P T #### [facility] [address] [place] [address] Dr. Hugh Landis RBC 3.89 106/ul Critically low 4.70-6.10 [facility] Comment on above: Performed By: #### P T #### [facility] [address] [place] [address] Dr. Hugh Landis WBC 6.5 103/ul Normal 4.0-11.0 [facility] Comment on above: Performed By: #### P T #### [facility] [address] [place] [address] Dr. Hugh Landis [facility] SARS-CoV-2 (COVID-19) RNA MUKUL+probe Ql (Unsp spec) Not detected Normal NOT DETECTED [facility] Comment on above: Result Comment: This test is not yet approved or cleared by the [place] FDA. When there are no FDA-approved or cleared tests available, and other criteria are met, FDA can make tests available under an emergency access mechanism called an Emergency Use Authorization (EUA). The EUA for this test is supported by the [place] of Health and Human Service's (HHS's) declaration [...] U TOMAS, TSH, CMP, LIPID, T7 #### [facility] [address] [place] [address] Dr. Hugh Landis PROF CHEM 8 (BAS METB)on Anion gap [Moles/Vol] 16.3 mmol/L Normal [facility] Comment on above: Performed By: #### C MP, LIPID, TSH #### [facility] [address] [place] [address] Dr. Hugh Landis Calcium [Mass/Vol] 9.6 mg/dL Normal 8.5-10.1 [facility] Comment on above: Performed By: #### C MP, LIPID, TSH #### [facility] [address] [place] [address] Dr. Hugh Landis Chloride [Moles/Vol] 103 mmol/L Normal 98-107 [facility] Comment on above: Performed By: #### C MP, LIPID, TSH #### [facility] [address] [place] [address] Dr. Hugh Landis CO2 [Moles/Vol] 21.9 mmol/L Normal 21.0-32.0 [facility] Comment on above: Performed By: #### C MP, LIPID, TSH #### [facility] [address] [place] [address] Dr. Hugh Landis Creatinine [Mass/Vol] 3.58 mg/dL Critically high 0.70-1.30 [facility] Comment on above: Performed By: #### C MP, LIPID, TSH #### [facility] [address] [place] [address] Dr. Hugh Landis EGFR-AF GUYANESE 21 mL/min/1.73m2 Critically low >=60 [facility] Comment on above: Performed By: #### C MP, LIPID, TSH #### [facility] [address] [place] [address] Dr. Hugh Landis EGFR-NON AF GUYANESE 18 mL/min/1.73m2 Critically low >=60 [facility] Comment on above: Performed By: #### C MP, LIPID, TSH #### [facility] [address] [place] [address] Dr. Hugh Landis Glucose [Mass/Vol] 115 mg/dL Critically high 74-106 [facility] Comment on above: Performed By: #### C MP, LIPID, TSH #### [facility] [address] [place] [address] Dr. Hugh Landis Potassium [Moles/Vol] 5.2 mmol/L Critically high 3.5-5.1 [facility] Comment on above: Performed By: #### C MP, LIPID, TSH #### [facility] [address] [place] [address] Dr. Hugh Landis Sodium [Moles/Vol] 136 mmol/L Normal 136-145 [facility] Comment on above: Performed By: #### C MP, LIPID, TSH #### [facility] [address] [place] [address] Dr. Hugh Landis Urea nitrogen [Mass/Vol] 54.0 mg/dL Critically high 7.0-18.0 [facility] Comment on above: Performed By: #### C MP, LIPID, TSH #### [facility] [address] [place] [address] Dr. Hugh Landis Urea nitrogen/Creatinine [Mass ratio] 15.1 mg/mg Normal [facility] Comment on above: Performed By: #### C MP, LIPID, TSH #### [facility] [address] [place] [address] Dr. Hugh Landis MRSA COLONIZATION SCREENING CULTUREon 10-09-2021 MRSA Screening Culture Negative Normal [facility] Comment on above: Performed By: #### C MP, LIPID, TSH #### [facility] [address] [place] [address] Dr. Hugh Landis CBC AUTO DIFFon 10-06-2021 BASO # 0.0 103/ul Normal 0.0-0.1 [facility] Comment on above: Performed By: #### U TOMAS, TSH, CMP, LIPID, T7 #### [facility] [address] [place] [address] Dr. Hugh Landis Basophils/100 WBC (Bld) 0.3 % Normal 0.2-2.0 [facility] Comment on above: Performed By: #### U TOMAS, TSH, CMP, LIPID, T7 #### [facility] [address] [place] [address] Dr. Hugh Landis EO # 0.1 103/ul Normal 0.0-0.7 [facility] Comment on above: Performed By: #### U TOMAS, TSH, CMP, LIPID, T7 #### [facility] [address] [place] [address] Dr. Hugh Landis Eosinophils/100 WBC (Bld) 2.3 % Normal 0.9-7.0 [facility] Comment on above: Performed By: #### U TOMAS, TSH, CMP, LIPID, T7 #### [facility] [address] [place] [address] Dr. Hugh Landis Erythrocyte distribution width (RBC) [Ratio] 13.3 % Normal 11.0-15.0 [facility] Comment on above: Performed By: #### U TOMAS, TSH, CMP, LIPID, T7 #### [facility] [address] [place] [address] Dr. Hugh Landis Hematocrit (Bld) [Volume fraction] 36.5 % Critically low 42.0-54.0 [facility] Comment on above: Performed By: #### U TOMAS, TSH, CMP, LIPID, T7 #### [facility] [address] [place] [address] Dr. Hugh Landis Hemoglobin (Bld) [Mass/Vol] 11.7 g/dL Critically low 14.0-18.0 [facility] Comment on above: Performed By: #### U TOMAS, TSH, CMP, LIPID, T7 #### [facility] [address] [address] [address] Hugh Landis IG # 0.02 10e3/ul Normal 0.00-0.03 [facility] Comment on above: Performed By: #### U TOMAS, TSH, CMP, LIPID, T7 #### [facility] [address] [address] [address] Hugh Landis IG % 0.3 % Normal 0.0-0.5 [facility] Comment on above: Performed By: #### U TOMAS, TSH, CMP, LIPID, T7 #### [facility] [address] [place] [address] Dr. Hugh Landis LYMPH # 1.3 103/ul Normal 1.2-3.8 [facility] Comment on above: Performed By: #### U TOMAS, TSH, CMP, LIPID, T7 #### [facility] [address] [place] [address] Dr. Hugh Landis Lymphocytes/100 WBC (Bld) 21.9 % Normal 20.5-60.0 [facility] Comment on above: Performed By: #### U TOMAS, TSH, CMP, LIPID, T7 #### [facility] [address] [place] [address] Dr. Hugh Landis MANUAL DIFF REQ NO Normal [facility] Comment on above: Performed By: #### U TOMAS, TSH, CMP, LIPID, T7 #### [facility] [address] [place] [address] Dr. Hugh Landis MCH (RBC) [Entitic mass] 29.7 pg Normal 25.9-34.0 [facility] Comment on above: Performed By: #### U TOMAS, TSH, CMP, LIPID, T7 #### [facility] [address] [place] [address] Dr. Hugh Landis MCHC (RBC) [Mass/Vol] 32.1 g/dL Normal 29.9-35.2 [facility] Comment on above: Performed By: #### U TOMAS, TSH, CMP, LIPID, T7 #### [facility] [address] [place] [address] Dr. Hugh Landis MCV (RBC) [Entitic vol] 92.6 fL Normal 80.0-94.0 [facility] Comment on above: Performed By: #### U TOMAS, TSH, CMP, LIPID, T7 #### [facility] [address] [address] [address] Hugh Landis MONO # 0.7 103/ul Normal 0.3-0.8 [facility] Comment on above: Performed By: #### U TOMAS, TSH, CMP, LIPID, T7 #### [facility] [address] [address] [address] Hugh Landis Monocytes/100 WBC (Bld) 11.3 % Normal 1.7-12.0 [facility] Comment on above: Performed By: #### U TOMAS, TSH, CMP, LIPID, T7 #### [facility] [address] [address] [address] Hugh Landis NEUT # 3.7 103/ul Normal 1.4-6.5 [facility] Comment on above: Performed By: #### U TOMAS, TSH, CMP, LIPID, T7 #### [facility] [address] [place] [address] Dr. Hugh Landis Neutrophils/100 WBC (Bld) 63.9 % Normal 43.0-75.0 [facility] Comment on above: Performed By: #### U TOMAS, TSH, CMP, LIPID, T7 #### [facility] [address] [address] [address] Hugh Landis Platelet mean volume (Bld) [Entitic vol] 8.9 fL Critically low 9.5-13.5 [facility] Comment on above: Performed By: #### U TOMAS, TSH, CMP, LIPID, T7 #### [facility] [address] [address] [address] Hugh Landis PLT 257 103/ul Normal 150-450 [facility] Comment on above: Performed By: #### U TOMAS, TSH, CMP, LIPID, T7 #### [facility] [address] [address] [address] Hugh Landis RBC 3.94 106/ul Critically low 4.70-6.10 [facility] Comment on above: Performed By: #### U TOMAS, TSH, CMP, LIPID, T7 #### [facility] [address] [address] [address] Hugh Landis WBC 5.8 103/ul Normal 4.0-11.0 [facility] Comment on above: Performed By: #### U TOMAS, TSH, CMP, LIPID, T7 #### [facility] [address] [address] [address] Hugh Landis GLYCOHEMOGLOBIN A1Con 2021 ADA RECOMMENDATION SEE BELOW Normal [facility] Comment on above: Result Comment: ADA RECOMMENDED LIMIT 4.0 - 6.0 ADA THERAPEUTIC TARGET < 7.0 ACTION SUGGESTED > 7.0 Performed By: #### U TOMAS, TSH, CMP, LIPID, T7 #### [facility] [address] [address] [address] Hugh Landis Glucose [Mass/Vol] 134 mg/dL Normal [facility] Comment on above: Performed By: #### U TOMAS, TSH, CMP, LIPID, T7 #### [facility] [address] [address] [address] Hugh Landis HbA1c (Bld) [Mass fraction] 6.3 % Critically high 4.5-6.2 [facility] Comment on above: Performed By: #### U TOMAS, TSH, CMP, LIPID, T7 #### [facility] [address] [address] [address] Hugh Landis PROF CHEM 8 (BAS METB)on Anion gap [Moles/Vol] 17.6 mmol/L Normal [facility] Comment on above: Performed By: #### C MP, LIPID, TSH #### [facility] [address] [address] [address] Hugh Landis Calcium [Mass/Vol] 9.5 mg/dL Normal 8.5-10.1 [facility] Comment on above: Performed By: #### C MP, LIPID, TSH #### [facility] [address] [address] [address] Hugh Landis Chloride [Moles/Vol] 102 mmol/L Normal 98-107 [facility] Comment on above: Performed By: #### C MP, LIPID, TSH #### [facility] [address] [place] [address] Dr. Hugh Landis CO2 [Moles/Vol] 22.2 mmol/L Normal 21.0-32.0 [facility] Comment on above: Performed By: #### C MP, LIPID, TSH #### [facility] [address] [place] [address] Dr. Hugh Landis Creatinine [Mass/Vol] 2.94 mg/dL Critically high 0.70-1.30 [facility] Comment on above: Performed By: #### C MP, LIPID, TSH #### [facility] [address] [place] [address] Dr. Hugh Landis EGFR-AF GUYANESE 27 mL/min/1.73m2 Critically low >=60 [facility] Comment on above: Performed By: #### C MP, LIPID, TSH #### [facility] [address] [place] [address] Dr. Hugh Landis EGFR-NON AF GUYANESE 22 mL/min/1.73m2 Critically low >=60 [facility] Comment on above: Performed By: #### C MP, LIPID, TSH #### [facility] [address] [place] [address] Dr. Hugh Landis Glucose [Mass/Vol] 234 mg/dL Critically high 74-106 [facility] Comment on above: Performed By: #### C MP, LIPID, TSH #### [facility] [address] [place] [address] Dr. Hugh Landis Potassium [Moles/Vol] 5.8 mmol/L Critically high 3.5-5.1 [facility] Comment on above: Performed By: #### C MP, LIPID, TSH #### [facility] [address] [place] [address] Dr. Hugh Landis Sodium [Moles/Vol] 136 mmol/L Normal 136-145 [facility] Comment on above: Performed By: #### C MP, LIPID, TSH #### [facility] [address] [address] [address] Hugh Landis Urea nitrogen [Mass/Vol] 46.0 mg/dL Critically high 7.0-18.0 [facility] Comment on above: Performed By: #### C MP, LIPID, TSH #### [facility] [address] [address] [address] Hugh Landis Urea nitrogen/Creatinine [Mass ratio] 15.6 mg/mg Normal [facility] Comment on above: Performed By: #### C MP, LIPID, TSH #### [facility] [address] [address] [address] Hugh Landis PROTIMEon 10-06-2021 INR Coag (PPP) [Relative time] 1.22 {INR} Normal [facility] Comment on above: Performed By: #### U TOMAS, TSH, CMP, LIPID, T7 #### [facility] [address] [place] [address] Dr. Hugh Landis INR GUIDELINES SEE BELOW Normal [facility] Comment on above: Result Comment: VIC RED INR: 2.0 - 3.0 CONDITIONS NOT LISTED BELOW 2.5 - 3.5 FOR PROSTHETIC HEART VALVE REPLACEMENT 2.5 - 3.5 RECURRENT THROMBOSIS Performed By: #### U TOMAS, TSH, CMP, LIPID, T7 #### [facility] [address] [place] [address] Dr. Hugh Landis PT Coag (PPP) [Time] 13.0 s Critically high 9.0-11.6 [facility] Comment on above: Performed By: #### U TOMAS, TSH, CMP, LIPID, T7 #### [facility] [address] [place] [address] Dr. Hugh Landis PTTon 10-06-2021 aPTT Coag (Bld) [Time] 30.6 s Normal 22.3-36.2 [facility] Comment on above: Performed By: #### U TOMAS, TSH, CMP, LIPID, T7 #### [facility] [address] [place] [address] Dr. Hugh Landis UA RANDOMon 10-06-2021 Bilirubin Ql (U) Negative Normal NEGATIVE [facility] Comment on above: Performed By: #### C MP, LIPID, TSH #### [facility] [address] [address] [address] Hugh Landis Clarity (U) CLEAR Normal CLEAR [facility] Comment on above: Performed By: #### C MP, LIPID, TSH #### [facility] [address] [address] [address] Hugh Landis Color (U) LT. YELLOW Normal YELLOW [facility] Comment on above: Performed By: #### C MP, LIPID, TSH #### [facility] [address] [address] [address] Hugh Landis Glucose Ql (U) Negative Normal NEGATIVE [facility] Comment on above: Performed By: #### C MP, LIPID, TSH #### [facility] [address] [place] [address] Dr. Hugh Landis Hemoglobin Ql (U) Negative Normal NEGATIVE [facility] Comment on above: Performed By: #### C MP, LIPID, TSH #### [facility] [address] [place] [address] Dr. Hugh Landis Ketones Ql (U) Negative Normal NEGATIVE [facility] Comment on above: Performed By: #### C MP, LIPID, TSH #### [facility] [address] [place] [address] Dr. Hugh Landis LEUKOCYTES Negative Normal NEGATIVE [facility] Comment on above: Performed By: #### C MP, LIPID, TSH #### [facility] [address] [address] [address] Hugh Landis Nitrite Ql (U) Negative Normal NEGATIVE [facility] Comment on above: Performed By: #### C MP, LIPID, TSH #### [facility] [address] [address] [address] Hugh Landis pH (U) 5.5 [pH] Normal 5-9 [facility] Comment on above: Performed By: #### C MP, LIPID, TSH #### [facility] [address] [address] [address] Hugh Landis SPEC GRAVITY 1.020 Normal 1.005-<=1.02 5 [facility] Comment on above: Performed By: #### C MP, LIPID, TSH #### [facility] [address] [place] [address] Dr. Hugh Landis UA PROTEIN Negative Normal NEGATIVE/ TRACE [facility] Comment on above: Performed By: #### C MP, LIPID, TSH #### [facility] [address] [place] [address] Dr. Hugh Landis Urobilinogen Qn (U) 0.2 {Dahiana'U}/dL Normal 0.2 - 1. 0 [facility] Comment on above: Performed By: #### C MP, LIPID, TSH #### [facility] [address] [place] [address] Dr. Hugh Landis CBC AUTO DIFFon 09-25-2021 BASO # 0.0 103/ul Normal 0.0-0.1 [facility] Comment on above: Performed By: #### U TOMAS, TSH, CMP, LIPID, T7 #### [facility] [address] [place] [address] Dr. Hugh Landis Basophils/100 WBC (Bld) 0.4 % Normal 0.2-2.0 [facility] Comment on above: Performed By: #### U TOMAS, TSH, CMP, LIPID, T7 #### [facility] [address] [place] [address] Dr. Hugh Landis EO # 0.1 103/ul Normal 0.0-0.7 [facility] Comment on above: Performed By: #### U TOMAS, TSH, CMP, LIPID, T7 #### [facility] [address] [place] [address] Dr. Hugh Landis Eosinophils/100 WBC (Bld) 1.7 % Normal 0.9-7.0 [facility] Comment on above: Performed By: #### U TOMAS, TSH, CMP, LIPID, T7 #### [facility] [address] [place] [address] Dr. Hugh Landis Erythrocyte distribution width (RBC) [Ratio] 13.5 % Normal 11.0-15.0 [facility] Comment on above: Performed By: #### U TOMAS, TSH, CMP, LIPID, T7 #### [facility] [address] [place] [address] Dr. Hugh Landis Hematocrit (Bld) [Volume fraction] 36.0 % Critically low 42.0-54.0 [facility] Comment on above: Performed By: #### U TOMAS, TSH, CMP, LIPID, T7 #### [facility] [address] [place] [address] Dr. Hugh Landis Hemoglobin (Bld) [Mass/Vol] 11.7 g/dL Critically low 14.0-18.0 [facility] Comment on above: Performed By: #### U TOMAS, TSH, CMP, LIPID, T7 #### [facility] [address] [place] [address] Dr. Hugh Landis IG # 0.02 10e3/ul Normal 0.00-0.03 [facility] Comment on above: Performed By: #### U TOMAS, TSH, CMP, LIPID, T7 #### [facility] [address] [place] [address] Dr. Hugh Landis IG % 0.3 % Normal 0.0-0.5 [facility] Comment on above: Performed By: #### U TOMAS, TSH, CMP, LIPID, T7 #### [facility] [address] [place] [address] Dr. Hugh Landis LYMPH # 1.3 103/ul Normal 1.2-3.8 [facility] Comment on above: Performed By: #### U TOMAS, TSH, CMP, LIPID, T7 #### [facility] [address] [place] [address] Dr. Hugh Landis Lymphocytes/100 WBC (Bld) 18.3 % Critically low 20.5-60.0 [facility] Comment on above: Performed By: #### U TOMAS, TSH, CMP, LIPID, T7 #### [facility] [address] [place] [address] Dr. Hugh Landis MANUAL DIFF REQ NO Normal [facility] Comment on above: Performed By: #### U TOMAS, TSH, CMP, LIPID, T7 #### [facility] [address] [place] [address] Dr. Hugh Landis MCH (RBC) [Entitic mass] 29.4 pg Normal 25.9-34.0 [facility] Comment on above: Performed By: #### U TOMAS, TSH, CMP, LIPID, T7 #### [facility] [address] [place] [address] Dr. Hugh Landis MCHC (RBC) [Mass/Vol] 32.5 g/dL Normal 29.9-35.2 [facility] Comment on above: Performed By: #### U TOMAS, TSH, CMP, LIPID, T7 #### [facility] [address] [place] [address] Dr. Hugh Landis MCV (RBC) [Entitic vol] 90.5 fL Normal 80.0-94.0 [facility] Comment on above: Performed By: #### U TOMAS, TSH, CMP, LIPID, T7 #### [facility] [address] [place] [address] Dr. Hugh Landis MONO # 0.6 103/ul Normal 0.3-0.8 [facility] Comment on above: Performed By: #### U TOMAS, TSH, CMP, LIPID, T7 #### [facility] [address] [place] [address] Dr. Hugh Landis Monocytes/100 WBC (Bld) 8.6 % Normal 1.7-12.0 [facility] Comment on above: Performed By: #### U TOMAS, TSH, CMP, LIPID, T7 #### [facility] [address] [place] [address] Dr. Hugh Landis NEUT # 4.9 103/ul Normal 1.4-6.5 [facility] Comment on above: Performed By: #### U TOMAS, TSH, CMP, LIPID, T7 #### [facility] [address] [place] [address] Dr. Hugh Landis Neutrophils/100 WBC (Bld) 70.7 % Normal 43.0-75.0 [facility] Comment on above: Performed By: #### U TOMAS, TSH, CMP, LIPID, T7 #### [facility] [address] [address] [address] Hugh Landis Platelet mean volume (Bld) [Entitic vol] 8.8 fL Critically low 9.5-13.5 [facility] Comment on above: Performed By: #### U TOMAS, TSH, CMP, LIPID, T7 #### [facility] [address] [place] [address] Dr. Hugh Landis PLT 270 103/ul Normal 150-450 [facility] Comment on above: Performed By: #### U TOMAS, TSH, CMP, LIPID, T7 #### [facility] [address] [place] [address] Dr. Hugh Landis RBC 3.98 106/ul Critically low 4.70-6.10 [facility] Comment on above: Performed By: #### U TOMAS, TSH, CMP, LIPID, T7 #### [facility] [address] [place] [address] Dr. Hugh Landis WBC 6.9 103/ul Normal 4.0-11.0 [facility] Comment on above: Performed By: #### U TOMAS, TSH, CMP, LIPID, T7 #### [facility] [address] [place] [address] Dr. Hugh Landis CRPon 09-25-2021 CRP [Mass/Vol] mg/L Normal <=1.0 [facility] Comment on above: Performed By: #### P T #### [facility] [address] [place] [address] Dr. Hugh Landis CULTURE BLOODon 09-25-2021 Microscopic examination of blood, culture Culture Observations: NO GROWTH AT 5 DAYS. Normal [facility] Comment on above: Performed By: #### B MP #### [facility] [address] [place] [address] Dr. Hugh Landis Microscopic examination of blood, culture Culture Observations: NO GROWTH AT 5 DAYS. Normal [facility] Comment on above: Performed By: #### B MP #### [facility] [address] [place] [address] Dr. Hugh Landis IRONon 09-25-2021 Iron [Mass/Vol] 62.0 ug/dL Critically low 65.0-175.0 [facility] Comment on above: Performed By: #### B MP #### [facility] [address] [address] [address] Hugh Landis SED RATE WEST LIBERTYERGRENon 2021 SED RATE 102 mm/hr Critically high <=20 [facility] Comment on above: Performed By: #### C MP, LIPID, TSH #### [facility] [address] [place] [address] Dr. Hugh Landis NM BONE IMAGE 3 [...] OBIE TSE Date: 2021-09-05 16:15 Normal [facility] CREATININEon 08-25-2021 Creatinine [Mass/Vol] 1.92 mg/dL Critically high 0.70-1.30 [facility] Comment on above: Performed By: #### C MP, LIPID, TSH #### [facility] [address] [place] [address] Dr. Hugh Landis EGFR-AF GUYANESE 44 mL/min/1.73m2 Critically low >=60 [facility] Comment on above: Performed By: #### C MP, LIPID, TSH #### [facility] [address] [place] [address] Dr. Hugh Landis EGFR-NON AF GUYANESE 36 mL/min/1.73m2 Critically low >=60 [facility] Comment on above: Performed By: #### C MP, LIPID, TSH #### [facility] [address] [address] [address] Hugh Landis CTA CHEST WO W [...] pulmonary thromboembolic disease Electronically authenticated by: OBIE STE Date: 2021-08-25 10:16 Normal [facility] CBC AUTO DIFFon 08-18-2021 BASO # 0.0 103/ul Normal 0.0-0.1 [facility] Comment on above: Performed By: #### C MP, LIPID, TSH #### [facility] [address] [address] [address] Hugh Landis Basophils/100 WBC (Bld) 0.4 % Normal 0.2-2.0 [facility] Comment on above: Performed By: #### C MP, LIPID, TSH #### [facility] [address] [address] [address] Hugh Landis EO # 0.1 103/ul Normal 0.0-0.7 [facility] Comment on above: Performed By: #### C MP, LIPID, TSH #### [facility] [address] [address] [address] Hugh Landis Eosinophils/100 WBC (Bld) 1.8 % Normal 0.9-7.0 [facility] Comment on above: Performed By: #### C MP, LIPID, TSH #### [facility] [address] [place] [address] Dr. Hugh Landis Erythrocyte distribution width (RBC) [Ratio] 13.3 % Normal 11.0-15.0 [facility] Comment on above: Performed By: #### C MP, LIPID, TSH #### [facility] [address] [place] [address] Dr. Hugh Landis Hematocrit (Bld) [Volume fraction] 34.7 % Critically low 42.0-54.0 [facility] Comment on above: Performed By: #### C MP, LIPID, TSH #### [facility] [address] [place] [address] Dr. Hugh Landis Hemoglobin (Bld) [Mass/Vol] 11.3 g/dL Critically low 14.0-18.0 [facility] Comment on above: Performed By: #### C MP, LIPID, TSH #### [facility] [address] [place] [address] Dr. Hugh Landis IG # 0.05 10e3/ul Critically high 0.00-0.03 [facility] Comment on above: Performed By: #### C MP, LIPID, TSH #### [facility] [address] [place] [address] Dr. Hugh Landis IG % 0.7 % Critically high 0.0-0.5 [facility] Comment on above: Performed By: #### C MP, LIPID, TSH #### [facility] [address] [place] [address] Dr. Hugh Landis LYMPH # 1.1 103/ul Critically low 1.2-3.8 [facility] Comment on above: Performed By: #### C MP, LIPID, TSH #### [facility] [address] [place] [address] Dr. Hugh Landis Lymphocytes/100 WBC (Bld) 16.0 % Critically low 20.5-60.0 [facility] Comment on above: Performed By: #### C MP, LIPID, TSH #### [facility] [address] [place] [address] Dr. Hugh Landis MANUAL DIFF REQ NO Normal [facility] Comment on above: Performed By: #### C MP, LIPID, TSH #### [facility] [address] [place] [address] Dr. Hugh Landis MCH (RBC) [Entitic mass] 29.7 pg Normal 25.9-34.0 [facility] Comment on above: Performed By: #### C MP, LIPID, TSH #### [facility] [address] [place] [address] Dr. Hugh Landis MCHC (RBC) [Mass/Vol] 32.6 g/dL Normal 29.9-35.2 [facility] Comment on above: Performed By: #### C MP, LIPID, TSH #### [facility] [address] [place] [address] Dr. Hugh Landis MCV (RBC) [Entitic vol] 91.3 fL Normal 80.0-94.0 [facility] Comment on above: Performed By: #### C MP, LIPID, TSH #### [facility] [address] [place] [address] Dr. Hugh Landis MONO # 0.7 103/ul Normal 0.3-0.8 [facility] Comment on above: Performed By: #### C MP, LIPID, TSH #### [facility] [address] [place] [address] Dr. Hugh Landis Monocytes/100 WBC (Bld) 9.7 % Normal 1.7-12.0 [facility] Comment on above: Performed By: #### C MP, LIPID, TSH #### [facility] [address] [place] [address] Dr. Hugh Landis NEUT # 4.9 103/ul Normal 1.4-6.5 [facility] Comment on above: Performed By: #### C MP, LIPID, TSH #### [facility] [address] [place] [address] Dr. Hugh Landis Neutrophils/100 WBC (Bld) 71.4 % Normal 43.0-75.0 [facility] Comment on above: Performed By: #### C MP, LIPID, TSH #### [facility] [address] [address] [address] Hugh Landis Platelet mean volume (Bld) [Entitic vol] 9.0 fL Critically low 9.5-13.5 [facility] Comment on above: Performed By: #### C MP, LIPID, TSH #### [facility] [address] [address] [address] Hugh Landis PLT 264 103/ul Normal 150-450 [facility] Comment on above: Performed By: #### C MP, LIPID, TSH #### [facility] [address] [address] [address] Hugh Landis RBC 3.80 106/ul Critically low 4.70-6.10 [facility] Comment on above: Performed By: #### C MP, LIPID, TSH #### [facility] [address] [place] [address] Dr. Hugh Landis WBC 6.8 103/ul Normal 4.0-11.0 [facility] Comment on above: Performed By: #### C MP, LIPID, TSH #### [facility] [address] [place] [address] Dr. Hugh Landis PROF 14(COMP METB)on 022 Albumin [Mass/Vol] 3.5 g/dL Normal 3.4-5.0 [facility] Comment on above: Performed By: #### U TOMAS, TSH, CMP, LIPID, T7 #### [facility] [address] [place] [address] Dr. Hugh Landis Albumin/Globulin [Mass ratio] 0.8 {ratio} Normal [facility] Comment on above: Performed By: #### U TOMAS, TSH, CMP, LIPID, T7 #### [facility] [address] [place] [address] Dr. Hugh Landis ALP [Catalytic activity/Vol] 63 U/L Normal 46-116 [facility] Comment on above: Performed By: #### U TOMAS, TSH, CMP, LIPID, T7 #### [facility] [address] [address] [address] Hugh Landis ALT [Catalytic activity/Vol] 26 U/L Normal 16-63 [facility] Comment on above: Performed By: #### U TOMAS, TSH, CMP, LIPID, T7 #### [facility] [address] [address] [address] Hugh Landis Anion gap [Moles/Vol] 12.7 mmol/L Normal [facility] Comment on above: Performed By: #### U TOMAS, TSH, CMP, LIPID, T7 #### [facility] [address] [address] [address] Hugh Landis AST [Catalytic activity/Vol] 14 U/L Critically low 15-37 [facility] Comment on above: Performed By: #### U TOMAS, TSH, CMP, LIPID, T7 #### [facility] [address] [address] [address] Hugh Landis Bilirubin [Mass/Vol] 0.3 mg/dL Normal 0.2-1.0 [facility] Comment on above: Performed By: #### U TOMAS, TSH, CMP, LIPID, T7 #### [facility] [address] [address] [address] Hugh Landis Calcium [Mass/Vol] 9.2 mg/dL Normal 8.5-10.1 [facility] Comment on above: Performed By: #### U TOMAS, TSH, CMP, LIPID, T7 #### [facility] [address] [address] [address] Hugh Landis Chloride [Moles/Vol] 105 mmol/L Normal 98-107 [facility] Comment on above: Performed By: #### U TOMAS, TSH, CMP, LIPID, T7 #### [facility] [address] [address] [address] Hugh Landis CO2 [Moles/Vol] 25.5 mmol/L Normal 21.0-32.0 [facility] Comment on above: Performed By: #### U TOMAS, TSH, CMP, LIPID, T7 #### [facility] [address] [address] [address] Hugh Landis Creatinine [Mass/Vol] 2.46 mg/dL Critically high 0.70-1.30 [facility] Comment on above: Performed By: #### U TOMAS, TSH, CMP, LIPID, T7 #### [facility] [address] [address] [address] Hugh Landis EGFR-AF GUYANESE 33 mL/min/1.73m2 Critically low >=60 [facility] Comment on above: Performed By: #### U TOMAS, TSH, CMP, LIPID, T7 #### [facility] [address] [address] [address] Hugh Landis EGFR-NON AF GUYANESE 27 mL/min/1.73m2 Critically low >=60 [facility] Comment on above: Performed By: #### U TOMAS, TSH, CMP, LIPID, T7 #### [facility] [address] [address] [address] Hugh Landis Globulin (S) [Mass/Vol] 4.5 g/dL Normal [facility] Comment on above: Performed By: #### U TOMAS, TSH, CMP, LIPID, T7 #### [facility] [address] [address] [address] Hugh Landis Glucose [Mass/Vol] 119 mg/dL Critically high 74-106 [facility] Comment on above: Performed By: #### U TOMAS, TSH, CMP, LIPID, T7 #### [facility] [address] [address] [address] Hugh Landis Potassium [Moles/Vol] 4.2 mmol/L Normal 3.5-5.1 [facility] Comment on above: Performed By: #### U TOMAS, TSH, CMP, LIPID, T7 #### [facility] [address] [address] [address] Hugh Landis Protein [Mass/Vol] 8.0 g/dL Normal 6.4-8.2 [facility] Comment on above: Performed By: #### U TOMAS, TSH, CMP, LIPID, T7 #### [facility] [address] [address] [address] Hugh Landis Sodium [Moles/Vol] 139 mmol/L Normal 136-145 [facility] Comment on above: Performed By: #### U TOMAS, TSH, CMP, LIPID, T7 #### [facility] [address] [address] [address] Hugh Landis Urea nitrogen [Mass/Vol] 49.0 mg/dL Critically high 7.0-18.0 [facility] Comment on above: Performed By: #### U TOMAS, TSH, CMP, LIPID, T7 #### [facility] [id number] Hugh Landis Urea nitrogen/Creatinine [Mass ratio] 19.9 mg/mg Normal [facility] Comment on above: Performed By: #### U TOMAS, TSH, CMP, LIPID, T7 #### [facility] [address] [address] [address] Hugh Landis TESTOSTERONE, FREE,DIRECT, T OTALon 08-14-2021 Free Testosterone(Direct) 5.9 pg/mL Critically low 7.2-24.[address] [facility] Comment on above: Result Comment: Perf ormed at: BN Performed By: #### B MP #### [facility] [address] [place] [address] Dr. Hugh Landis Testosterone [Mass/Vol] 392 ng/dL Normal 264-916 [facility] Comment on above: Result Comment: Adul t male reference interval is based on a population of healthy nonobese males (BMI <30) between 19 and 39 years old. Gavi, et.al. JCEM 2017,102;3959-1414. PMID: [id number]. Performed at: CB Performed By: #### B MP #### [facility] [address] [place], [place] [id number] Dr. Hugh Landis VITAMIN B1 (THIAMINE)on 07-27 Vit. B1, Whole Blood 145.1 nmol/L Normal 66.5-200.0 [facility] Comment on above: Performed By: #### C MP, LIPID, TSH #### [facility] [id number] Hugh Landis VITAMIN Aon 08-13-2021 Vitamin A 82.7 ug/dL Critically high 20.1-62.0 [facility] Comment on above: Result Comment: Refe rence [...] Administration. Performed By: #### P T #### [facility] [address] [place] [address] Dr. Hugh Landis ZINC SERUM OR PLASMAon 08-10 Zinc, Plasma or Serum 78 ug/dL Normal 44-115 [facility] Comment on above: Result Comment: Dete ction Limit = 5 Performed By: #### C MP, LIPID, TSH #### [facility] [address] [place] [address] Dr. Hugh Landis FOLATE ([facility])on Folate 12.9 ng/mL Normal >3.0 [facility] Comment on above: Result Comment: A se rum folate concentration of less than 3.1 ng/mL is considered to represent clinical deficiency. Performed By: #### P TT #### [facility] [address] [place] [address] Dr. Hugh Landis PTH INTACTon 08-09-2021 PTH, Intact 29 pg/mL Normal 15-65 [facility] Comment on above: Performed By: #### P TT #### [facility] [address] [place] [address] Dr. Hugh Landis CBC AUTO DIFFon 08-08-2021 BASO # 0.0 103/ul Normal 0.0-0.1 [facility] Comment on above: Performed By: #### C MP, LIPID, TSH #### [facility] [address] [place] [address] Dr. Hugh Landis Basophils/100 WBC (Bld) 0.6 % Normal 0.2-2.0 [facility] Comment on above: Performed By: #### C MP, LIPID, TSH #### [facility] [address] [place] [address] Dr. Hugh Landis EO # 0.2 103/ul Normal 0.0-0.7 [facility] Comment on above: Performed By: #### C MP, LIPID, TSH #### [facility] [address] [place] [address] Dr. Hugh Landis Eosinophils/100 WBC (Bld) 2.2 % Normal 0.9-7.0 [facility] Comment on above: Performed By: #### C MP, LIPID, TSH #### [facility] [address] [place] [address] Dr. Hugh Landis Erythrocyte distribution width (RBC) [Ratio] 13.4 % Normal 11.0-15.0 [facility] Comment on above: Performed By: #### C MP, LIPID, TSH #### [facility] [address] [place] [address] Dr. Hugh Landis Hematocrit (Bld) [Volume fraction] 38.2 % Critically low 42.0-54.0 [facility] Comment on above: Performed By: #### C MP, LIPID, TSH #### [facility] [address] [place] [address] Dr. Hugh Landis Hemoglobin (Bld) [Mass/Vol] 11.8 g/dL Critically low 14.0-18.0 [facility] Comment on above: Performed By: #### C MP, LIPID, TSH #### [facility] [address] [place] [address] Dr. Hugh Landis IG # 0.03 10e3/ul Normal 0.00-0.03 [facility] Comment on above: Performed By: #### C MP, LIPID, TSH #### [facility] [address] [place] [address] Dr. Hugh Landis IG % 0.4 % Normal 0.0-0.5 [facility] Comment on above: Performed By: #### C MP, LIPID, TSH #### [facility] [address] [place] [address] Dr. Hugh Landis LYMPH # 1.0 103/ul Critically low 1.2-3.8 [facility] Comment on above: Performed By: #### C MP, LIPID, TSH #### [facility] [address] [place] [address] Dr. Hugh Landis Lymphocytes/100 WBC (Bld) 14.9 % Critically low 20.5-60.0 [facility] Comment on above: Performed By: #### C MP, LIPID, TSH #### [facility] [address] [place] [address] Dr. Hugh Landis MANUAL DIFF REQ NO Normal [facility] Comment on above: Performed By: #### C MP, LIPID, TSH #### [facility] [address] [place] [address] Dr. Hugh Landis MCH (RBC) [Entitic mass] 28.5 pg Normal 25.9-34.0 [facility] Comment on above: Performed By: #### C MP, LIPID, TSH #### [facility] [address] [place] [address] Dr. Hugh Landis MCHC (RBC) [Mass/Vol] 30.9 g/dL Normal 29.9-35.2 [facility] Comment on above: Performed By: #### C MP, LIPID, TSH #### [facility] [address] [place] [address] Dr. Hugh Landis MCV (RBC) [Entitic vol] 92.3 fL Normal 80.0-94.0 [facility] Comment on above: Performed By: #### C MP, LIPID, TSH #### [facility] [address] [place] [address] Dr. Hugh Landis MONO # 0.7 103/ul Normal 0.3-0.8 [facility] Comment on above: Performed By: #### C MP, LIPID, TSH #### [facility] [address] [place] [address] Dr. Hugh Landis Monocytes/100 WBC (Bld) 10.6 % Normal 1.7-12.0 [facility] Comment on above: Performed By: #### C MP, LIPID, TSH #### [facility] [address] [place] [address] Dr. Hugh Landis NEUT # 4.9 103/ul Normal 1.4-6.5 [facility] Comment on above: Performed By: #### C MP, LIPID, TSH #### [facility] [address] [place] [address] Dr. Hugh Landis Neutrophils/100 WBC (Bld) 71.3 % Normal 43.0-75.0 [facility] Comment on above: Performed By: #### C MP, LIPID, TSH #### [facility] [address] [place] [address] Dr. Hugh Landis Platelet mean volume (Bld) [Entitic vol] 9.4 fL Critically low 9.5-13.5 [facility] Comment on above: Performed By: #### C MP, LIPID, TSH #### [facility] [address] [place] [address] Dr. Hugh Landis PLT 249 103/ul Normal 150-450 [facility] Comment on above: Performed By: #### C MP, LIPID, TSH #### [facility] [address] [place] [address] Dr. Hugh Landis RBC 4.14 106/ul Critically low 4.70-6.10 [facility] Comment on above: Performed By: #### C MP, LIPID, TSH #### [facility] [address] [place] [address] Dr. Hugh Landis WBC 6.9 103/ul Normal 4.0-11.0 [facility] Comment on above: Performed By: #### C MP, LIPID, TSH #### [facility] [address] [place] [address] Dr. Hugh Landis FERRITINon 08-08-2021 Ferritin [Mass/Vol] 154.0 ng/mL Normal 26.0-388.0 [facility] Comment on above: Performed By: #### C MP, LIPID, TSH #### [facility] [address] [place] [address] Dr. Hugh Landis GLYCOHEMOGLOBIN A1Con 2021 ADA RECOMMENDATION SEE BELOW Normal [facility] Comment on above: Result Comment: ADA RECOMMENDED LIMIT 4.0 - 6.0 ADA THERAPEUTIC TARGET < 7.0 ACTION SUGGESTED > 7.0 Performed By: #### P T #### [facility] [address] [address] [address] Hugh Landis Glucose [Mass/Vol] 140 mg/dL Normal [facility] Comment on above: Performed By: #### P T #### [facility] [address] [address] [address] Hugh Landis HbA1c (Bld) [Mass fraction] 6.5 % Critically high 4.5-6.2 [facility] Comment on above: Performed By: #### P T #### [facility] [address] [address] [address] Hugh Landis IRON AND TIBCon 08-08-2021 % SATURATION 13.6 % Normal [facility] Comment on above: Performed By: #### C MP, LIPID, TSH #### [facility] [address] [address] [address] Hugh Landis Iron [Mass/Vol] 45.0 ug/dL Critically low 65.0-175.0 [facility] Comment on above: Performed By: #### C MP, LIPID, TSH #### [facility] [address] [address] [address] Hugh Landis TIBC DIRECT 332.0 ug/dL Normal 250.0-450.[address] [facility] Comment on above: Performed By: #### C MP, LIPID, TSH #### [facility] [address] [address] [address] Hugh Landis LIPID PROFILEon 08-08-2021 CHOL-HDL RATIO NORM SEE BELOW Normal [facility] Comment on above: Result Comment: 3.3 - 4.4 LOW RISK 4.4 - 7.1 AVERAGE RISK 7.1 - 11.0 MODERATE RISK >11.0 HIGH RISK Performed By: #### C MP, LIPID, TSH #### [facility] [address] [address] [address] Hugh Landis Cholesterol [Mass/Vol] 187 mg/dL Normal <=200 [facility] Comment on above: Performed By: #### C MP, LIPID, TSH #### [facility] [address] [address] [address] Hugh Landis Cholesterol in HDL [Mass/Vol] 51 mg/dL Normal 40-60 [facility] Comment on above: Performed By: #### C MP, LIPID, TSH #### [facility] [address] [address] [address] Hugh Landis Cholesterol in LDL [Mass/Vol] 101.8 mg/dL Normal [facility] Comment on above: Performed By: #### C MP, LIPID, TSH #### [facility] [address] [address] [address] Hugh Landis Cholesterol.total/Ch olesterol in HDL [Mass ratio] 3.7 {ratio} Normal [facility] Comment on above: Performed By: #### C MP, LIPID, TSH #### [facility] [address] [address] [address] Hugh Landis HDL NORMAL > or = 60 mg/dl - LO W CARDIOVASCULAR RISK <40 mg/dl - HIGH CARDIOVASCULAR RISK Normal [facility] Comment on above: Performed By: #### C MP, LIPID, TSH #### [facility] [address] [address] [address] Hugh Landis LDL CALC NORMAL SEE BELOW Normal [facility] Comment on above: Result Comment: <100 mg/dl OPTIMAL 100 - 129 mg/dl NEAR OR ABOVE OPTIMAL 130 - 159 mg/dl BORDERLINE HIGH 160 - 189 mg/dl HIGH >190 mg/dl VERY HIGH Performed By: #### C MP, LIPID, TSH #### [facility] [address] [address] [address] Hugh Landis Triglyceride [Mass/Vol] 171 mg/dL Critically high <=150 [facility] Comment on above: Performed By: #### C MP, LIPID, TSH #### [facility] [address] [address] [address] Hugh Landis VLDL CALC 34.2 mg/dL Normal [facility] Comment on above: Performed By: #### C MP, LIPID, TSH #### [facility] [address] [address] [address] Hugh Landis PROF 14(COMP METB)on 022 Albumin [Mass/Vol] 3.6 g/dL Normal 3.4-5.0 [facility] Comment on above: Performed By: #### C MP, LIPID, TSH #### [facility] [address] [address] [address] Hugh Landis Albumin/Globulin [Mass ratio] 0.8 {ratio} Normal [facility] Comment on above: Performed By: #### C MP, LIPID, TSH #### [facility] [address] [address] [address] Hugh Landis ALP [Catalytic activity/Vol] 64 U/L Normal 46-116 [facility] Comment on above: Performed By: #### C MP, LIPID, TSH #### [facility] [address] [address] [address] Hugh Landis ALT [Catalytic activity/Vol] 28 U/L Normal 16-63 [facility] Comment on above: Performed By: #### C MP, LIPID, TSH #### [facility] [address] [address] [address] Hugh Landis Anion gap [Moles/Vol] 15.0 mmol/L Normal [facility] Comment on above: Performed By: #### C MP, LIPID, TSH #### [facility] [address] [address] [address] Hugh Landis AST [Catalytic activity/Vol] 14 U/L Critically low 15-37 [facility] Comment on above: Performed By: #### C MP, LIPID, TSH #### [facility] [address] [address] [address] Hugh Landis Bilirubin [Mass/Vol] 0.5 mg/dL Normal 0.2-1.0 [facility] Comment on above: Performed By: #### C MP, LIPID, TSH #### [facility] [address] [address] [address] Hugh Landis Calcium [Mass/Vol] 9.6 mg/dL Normal 8.5-10.1 [facility] Comment on above: Performed By: #### C MP, LIPID, TSH #### [facility] [address] [address] [address] Hugh Landis Chloride [Moles/Vol] 105 mmol/L Normal 98-107 [facility] Comment on above: Performed By: #### C MP, LIPID, TSH #### [facility] [address] [address] [address] Hugh Landis CO2 [Moles/Vol] 23.5 mmol/L Normal 21.0-32.0 [facility] Comment on above: Performed By: #### C MP, LIPID, TSH #### [facility] [address] [address] [address] Hugh Landis Creatinine [Mass/Vol] 2.69 mg/dL Critically high 0.70-1.30 [facility] Comment on above: Performed By: #### C MP, LIPID, TSH #### [facility] [address] [address] [address] Hugh Landis EGFR-AF GUYANESE 30 mL/min/1.73m2 Critically low >=60 [facility] Comment on above: Performed By: #### C MP, LIPID, TSH #### [facility] [address] [address] [address] Hugh Landis EGFR-NON AF GUYANESE 25 mL/min/1.73m2 Critically low >=60 [facility] Comment on above: Performed By: #### C MP, LIPID, TSH #### [facility] [address] [address] [address] Hugh Landis Globulin (S) [Mass/Vol] 4.3 g/dL Normal [facility] Comment on above: Performed By: #### C MP, LIPID, TSH #### [facility] [address] [address] [address] Hugh Landis Glucose [Mass/Vol] 80 mg/dL Normal 74-106 [facility] Comment on above: Performed By: #### C MP, LIPID, TSH #### [facility] [address] [address] [address] Hugh Landis Potassium [Moles/Vol] 5.5 mmol/L Critically high 3.5-5.1 [facility] Comment on above: Performed By: #### C MP, LIPID, TSH #### [facility] [address] [place] [address] Dr. Hugh Landis Protein [Mass/Vol] 7.9 g/dL Normal 6.4-8.2 [facility] Comment on above: Performed By: #### C MP, LIPID, TSH #### [facility] [address] [place] [address] Dr. Hugh Landis Sodium [Moles/Vol] 138 mmol/L Normal 136-145 [facility] Comment on above: Performed By: #### C MP, LIPID, TSH #### [facility] [address] [place] [address] Dr. Hugh Landis Urea nitrogen [Mass/Vol] 47.0 mg/dL Critically high 7.0-18.0 [facility] Comment on above: Performed By: #### C MP, LIPID, TSH #### [facility] [address] [place] [address] Dr. Hugh Landis Urea nitrogen/Creatinine [Mass ratio] 17.5 mg/mg Normal [facility] Comment on above: Performed By: #### C MP, LIPID, TSH #### [facility] [address] [place] [address] Dr. Hugh Landis TSHon 08-08-2021 TSH 1.069 uIU/mL Normal 0.358-3.740 [facility] Comment on above: Performed By: #### C MP, LIPID, TSH #### [facility] [address] [place] [address] Dr. Hugh Landis TSH RANGE SEE BELOW Normal [facility] Comment on above: Result Comment: <0.3 4 UIU/ml HYPERTHYROID 0.34-5.60 UIU/ml EUTHYROID >5.60 UIU/ml HYPOTHYROID Performed By: #### C MP, LIPID, TSH #### [facility] [address] [place] [address] Dr. Hugh Landis VITAMIN B12on 08-08-2021 Cobalamin (Vitamin B12) [Mass/Vol] 336.0 pg/mL Normal 193.0-986.0 [facility] Comment on above: Performed By: #### C MP, LIPID, TSH #### [facility] [address] [place], [place] [id number] Dr. Hugh Landis VITAMIN D 25 OHon 08-08-2021 VIT D 25-OH 36.6 ng/mL Normal [facility] Comment on above: Performed By: #### C MP, LIPID, TSH #### [facility] [address] [place], [place] [id number] Dr. Hugh Landis VIT D RANGES SEE BELOW Normal [facility] Comment on above: Result Comment: <20 ng/mL Vit D deficient 20 - <30 ng/mL Vit D insufficient 30 - 100 ng/mL Vit D sufficient >100 ng/mL Potential Toxicity Performed By: #### C MP, LIPID, TSH #### [facility] [address] [place] [address] Dr. Hugh Landis KNEE RIGHT 3 Son 2 KNEE RIGHT 3 [facility] Department of Radiology [address] [place] [id number] ======== Patient Name: SUKHDEEP SIMENTAL : 1965 Sex: M Age: Race: White Pt. Location: Patient Status: D Ordered Date: 07/21/2021 3:35:00 PM Completed Date: 07/21/2021 03:37 PM Requesting Provider: PAYTON HELM Attending Provider: PAYTON HELM Report Copy To: Signs & Symptoms: M17.11 Unilateral primary osteoarthritis, right knee I10 History: Comments: Evaluate Exam: KNEE RIGHT 3 S ======== KNEE RIGHT 3 VWS 07/21/2021 3:37 [...] patella suggesting quadriceps tendon disruption. Electronically signed: Cole Richmond. Transcribed by: [email or web address], User Resident: Electronically Signed by: COLE RICHMOND @ 07/23/2021 10:50 PM Normal [facility] Comment on above: Order Comment: Evalu ate CBCon 07-18-2021 Erythrocyte distribution width (RBC) [Ratio] 13.5 % Normal 11.8-14.4 [facility] Comment on above: Performed By: #### C BC, PT, PTT, BMP #### [facility] [address] [place] [address] Rouge Sifter: Good Melendez MD #### ANICOT #### [facility] [address] [place], [place] [id number] Rouge Sifter: Troy Link MD Hematocrit (Bld) [Volume fraction] 39.1 % Low 40.7-50.3 [facility] Comment on above: Performed By: #### C BC, PT, PTT, BMP #### [facility] [address] [place] [id number] Rouge Sifter: Good Melendez MD #### ANICOT #### [facility] [address] [place], [place] [id number] Rouge Sifter: Troy Link MD Hemoglobin (Bld) [Mass/Vol] 12.3 g/dL Low 13.0-17.0 [facility] Comment on above: Performed By: #### C BC, PT, PTT, BMP #### [address] [id number] Rouge Sifter: Good Melendez MD #### ANICOT #### [facility] [address] [place], [place] [id number] Rouge Sifter: Troy Link MD MCH (RBC) [Entitic mass] 28.8 pg Normal 25.2-33.5 [facility] Comment on above: Performed By: #### C BC, PT, PTT, BMP #### [address] [id number] Rouge Sifter: Good Melendez MD #### ANICOT #### [facility] [address] [place], [place] [id number] Rouge Sifter: Troy Link MD MCHC (RBC) [Mass/Vol] 31.5 g/dL Normal 28.4-34.8 [facility] Comment on above: Performed By: #### C BC, PT, PTT, BMP #### [address] [id number] Rouge Sifter: Good Melendez MD #### ANICOT #### [facility] [address] [place], [place] [id number] Rouge Sifter: Troy Link MD MCV (RBC) [Entitic vol] 91.6 fL Normal 82.6-102.9 [facility] Comment on above: Performed By: #### C BC, PT, PTT, BMP #### [address] [id number] Rouge Sifter: Good Melendez MD #### ANICOT #### [facility] [address] [place] [address] Rouge Sifter: Troy Link MD NRBC Automated 0.0 per 100 WBC Normal 0.0 [facility] Comment on above: Performed By: #### C BC, PT, PTT, BMP #### [address] [address] Rouge Sifter: Good Melendez MD #### ANICOT #### [facility] [address] [place] [address] Rouge Sifter: Troy Link MD Platelet mean volume (Bld) [Entitic vol] 9.7 fL Normal 8.1-13.5 [facility] Comment on above: Performed By: #### C BC, PT, PTT, BMP #### [place] [address] Rouge Sifter: Good Melendez MD #### ANICOT #### [facility] [address] [place] [address] Rouge Sifter: Troy Link MD Platelets (Bld) [#/Vol] 190 10*3/uL Normal 138-453 [facility] Comment on above: Performed By: #### C BC, PT, PTT, BMP #### [address] [address] Rouge Sifter: Good Melendez MD #### ANICOT #### [facility] [address] [place] [address] Rouge Sifter: Troy Link MD RBC (Bld) [#/Vol] 4.27 10*6/uL Normal 4.21-5.77 [facility] Comment on above: Performed By: #### C BC, PT, PTT, BMP #### [address] [id number] Rouge Sifter: Good Melendez MD #### ANICOT #### [facility] [address] [place], [place] [id number] Rouge Sifter: Troy Link MD WBC (Bld) [#/Vol] 8.7 10*3/uL Normal 3.5-11.3 [facility] Comment on above: Performed By: #### C BC, PT, PTT, BMP #### [facility] [address] [place] [address] Rouge Sifter: Good Melendez MD #### ANICOT #### [facility] [address] [place], [place] [id number] Rouge Sifter: Troy Link MD APTTon 07-17-2021 aPTT Coag (Bld) [Time] 20.8 s Normal 20.5-30.5 [facility] Comment on above: Result Comment: IV Heparin Therapy Range: 48.6-77.8 Performed By: #### C BC, PT, PTT, BMP #### [address] [address] Rouge Sifter: Good Melendez MD #### ANICOT #### [facility] [address] [place], [place] [id number] Rouge Sifter: Troy Link MD aPTT Coag (Bld) [Time] 37.9 s High 20.5-30.5 [facility] Comment on above: Result Comment: IV Heparin Therapy Range: 48.6-77.8 Performed By: #### C BC, PT, PTT, BMP #### [address] [address] Rouge Sifter: Good Melendez MD #### ANICOT #### [facility] [address] [place], [place] [id number] Rouge Sifter: Troy Link MD aPTT Coag (Bld) [Time] 78.1 s High 20.5-30.5 [facility] Comment on above: Result Comment: IV Heparin Therapy Range: 48.6-77.8 Performed By: #### C BC, PT, PTT, BMP #### [address] [id number] Rouge Sifter: Good Melendez MD #### ANICOT #### [facility] [address] [place], [place] [id number] Rouge Sifter: Troy Link MD Basic Metab w/rfx MGon 07-17 (cont.) Normal [facility] Comment on above: Result Comment: Aver age GFR for 50-59 years old: 93 mL/min/1.73sq m Chronic Kidney Disease: <60 mL/min/1.73sq m Kidney failure: <15 mL/min/1.73sq m eGFR calculated using average adult body mass. Additional eGFR calculator available at: http://www.ProTenders.GapJumpers/multiple_crcl_2011.htm Performed By: #### C BC, PT, PTT, BMP #### [address] [id number] Rouge Sifter: Good Melendez MD #### ANAPARNAT #### [facility] [address] [place] [address] Rouge Sifter: Troy Link MD Anion gap [Moles/Vol] 9 mmol/L Normal 9-17 [facility] Comment on above: Performed By: #### C BC, PT, PTT, BMP #### [facility] [address] [place] [address] Rouge Sifter: Good Melendez MD #### ANICOT #### [facility] [address] [place] [address] Rouge Sifter: Troy Link MD Calcium [Mass/Vol] 9.3 mg/dL Normal 8.6-10.4 [facility] Comment on above: Performed By: #### C BC, PT, PTT, BMP #### [address] [address] Rouge Sifter: Good Melendez MD #### ANICOT #### [facility] [address] [place] [address] Rouge Sifter: Troy Link MD Chloride [Moles/Vol] 106 mmol/L Normal 98-107 [facility] Comment on above: Performed By: #### C BC, PT, PTT, BMP #### [address] [address] Rouge Sifter: Good Melendez MD #### ANICOT #### [address] [address] Rouge Sifter: Troy Link MD CO2 [Moles/Vol] 23 mmol/L Normal 20-31 [facility] Comment on above: Performed By: #### C BC, PT, PTT, BMP #### [address] [address] Rouge Sifter: Good Melendez MD #### ANICOT #### [facility] [address] [place] [address] Rouge Sifter: Troy Link MD Creatinine [Mass/Vol] 1.40 mg/dL High 0.70-1.20 [facility] Comment on above: Performed By: #### C BC, PT, PTT, BMP #### [address] [address] Rouge Sifter: Good Melendez MD #### ANICOT #### [facility] [address] [place] [address] Rouge Sifter: Troy Link MD GFR, Amer >60 Normal >60 [facility] Comment on above: Performed By: #### C BC, PT, PTT, BMP #### [address] [place] [address] Rouge Sifter: Good Melendez MD #### ANICOT #### [facility] [address] [place] [address] Rouge Sifter: Troy Link MD GFR,non Amer 52 mL/min Low >60 [facility] Comment on above: Performed By: #### C BC, PT, PTT, BMP #### [address] [address] Rouge Sifter: Good Melendez MD #### ANICOT #### [facility] [address] [place] [address] Rouge Sifter: Troy Link MD Glucose [Mass/Vol] 170 mg/dL High 70-99 [facility] Comment on above: Performed By: #### C BC, PT, PTT, BMP #### [address] [address] Rouge Sifter: Good Melendez MD #### ANICOT #### [facility] [address] [place] [address] Rouge Sifter: Troy Link MD Potassium [Moles/Vol] 4.6 mmol/L Normal 3.7-5.3 [facility] Comment on above: Performed By: #### C BC, PT, PTT, BMP #### [address] [address] Rouge Sifter: Good Melendez MD #### ANICOT #### [facility] [address] [place] [address] Rouge Sifter: Troy Link MD Sodium [Moles/Vol] 138 mmol/L Normal 135-144 [facility] Comment on above: Performed By: #### C BC, PT, PTT, BMP #### [facility] [address] [place] [address] Rouge Sifter: Good Melendez MD #### ANICOT #### [facility] [address] [place] [address] Rouge Sifter: Troy Link MD Urea nitrogen [Mass/Vol] 33 mg/dL High 6-20 [facility] Comment on above: Performed By: #### C BC, PT, PTT, BMP #### [address] [id number] Rouge Sifter: Good Melendez MD #### ANICOT #### [facility] [address] [place] [address] Rouge Sifter: Troy Link MD Basic Metabolic Profon 07-17 (cont.) Normal [facility] Comment on above: Result Comment: Aver age GFR for 50-59 years old: 93 mL/min/1.73sq m Chronic Kidney Disease: <60 mL/min/1.73sq m Kidney failure: <15 mL/min/1.73sq m eGFR calculated using average adult body mass. Additional eGFR calculator available at: http://www.ProTenders.com/multiple_crcl_2011.htm Performed By: #### C BC, PT, PTT, BMP #### [address] [id number] Rouge Sifter: Good Melendez MD #### ANICOT #### [facility] [address] [place], [place] [id number] Rouge Sifter: Troy Link MD Anion gap [Moles/Vol] 8 mmol/L Low 9-17 [facility] Comment on above: Performed By: #### C BC, PT, PTT, BMP #### [address] [address] Rouge Sifter: Good Melendez MD #### ANICOT #### [facility] [address] [place], [place] [id number] Rouge Sifter: Troy Link MD Calcium [Mass/Vol] 9.5 mg/dL Normal 8.6-10.4 [facility] Comment on above: Performed By: #### C BC, PT, PTT, BMP #### [address] [address] Rouge Sifter: Good Melendez MD #### ANICOT #### [facility] [address] [place], [place] [id number] Rouge Sifter: Troy Link MD Chloride [Moles/Vol] 104 mmol/L Normal 98-107 [facility] Comment on above: Performed By: #### C BC, PT, PTT, BMP #### [address] [id number] Rouge Sifter: Good Melendez MD #### ANICOT #### [facility] [address] [place], [place] [id number] Rouge Sifter: Troy Link MD CO2 [Moles/Vol] 23 mmol/L Normal 20-31 [facility] Comment on above: Performed By: #### C BC, PT, PTT, BMP #### [address] [address] Rouge Sifter: Good Melendez MD #### ANICOT #### [facility] [address] [place] [address] Rouge Sifter: Troy Link MD Creatinine [Mass/Vol] 1.34 mg/dL High 0.70-1.20 [facility] Comment on above: Performed By: #### C BC, PT, PTT, BMP #### [address] [address] Rouge Sifter: Good Melendez MD #### ANICOT #### [facility] [address] [place] [address] Rouge Sifter: Troy Link MD GFR, Amer >60 Normal >60 [facility] Comment on above: Performed By: #### C BC, PT, PTT, BMP #### [address] [id number] Rouge Sifter: Good Melendez MD #### ANICOT #### [facility] [address] [place], [place] [id number] Rouge Sifter: Troy Link MD GFR,non Amer 55 mL/min Low >60 [facility] Comment on above: Performed By: #### C BC, PT, PTT, BMP #### [address] [id number] Rouge Sifter: Good Melendez MD #### ANICOT #### [facility] [address] [place] [address] Rouge Sifter: Troy Link MD Glucose [Mass/Vol] 136 mg/dL High 70-99 [facility] Comment on above: Performed By: #### C BC, PT, PTT, BMP #### [address] [id number] Rouge Sifter: Good Melendez MD #### ANICOT #### [facility] [address] [place] [address] Rouge Sifter: Troy Link MD Potassium [Moles/Vol] 4.7 mmol/L Normal 3.7-5.3 [facility] Comment on above: Performed By: #### C BC, PT, PTT, BMP #### [address] [address] Rouge Sifter: Good Melendez MD #### ANICOT #### [facility] [address] [place], [place] [id number] Rouge Sifter: Troy Link MD Sodium [Moles/Vol] 135 mmol/L Normal 135-144 [facility] Comment on above: Performed By: #### C BC, PT, PTT, BMP #### [facility] [address] [place] [address] Rouge Sifter: Good Melendez MD #### ANICOT #### [facility] [address] [place] [address] Rouge Sifter: Troy Link MD Urea nitrogen [Mass/Vol] 31 mg/dL High 6-20 [facility] Comment on above: Performed By: #### C BC, PT, PTT, BMP #### [address] [address] Rouge Sifter: Good Melendez MD #### ANICOT #### [facility] [address] [place], [place] [id number] Rouge Sifter: Troy Link MD Fibrinogenon 07-17-2021 Fibrinogen 404 mg/dL Normal 140-420 [facility] Comment on above: Performed By: #### C BC, PT, PTT, BMP #### [address] [address] Rouge Sifter: Good Melendez MD #### ANICOT #### [facility] [address] [place], [place] [id number] Rouge Sifter: Troy Link MD Fibrinogen 395 mg/dL Normal 140-420 [facility] Comment on above: Performed By: #### C BC, PT, PTT, BMP #### [facility] [address] [place] [address] Rouge Sifter: Good Melendez MD #### ANICOT #### [facility] [address] [place] [address] Rouge Sifter: Troy Link MD Hemoglobin A1Con 07-17-2021 Glucose [Mass/Vol] 169 mg/dL Normal [facility] Comment on above: Result Comment: The ADA and AACC recommend providing the estimated average glucose result to permit better patient understanding of their HBA1c result. Performed By: #### C BC, PT, PTT, BMP #### [facility] [address] [place] [address] Rouge Sifter: Good Melendez MD #### ANICOT #### [facility] [address] [place], [place] [id number] Rouge Sifter: Troy Link MD HbA1c (Bld) [Mass fraction] 7.5 % High 4.0-6.0 [facility] Comment on above: Performed By: #### C BC, PT, PTT, BMP #### [facility] [address] [place] [address] Rouge Sifter: Good Melendez MD #### ANICOT #### [facility] [address] [place] [address] Rouge Sifter: Troy Link MD PTon 07-17-2021 INR Coag (PPP) [Relative time] 1.2 {INR} Normal [facility] Comment on above: Result Comment: Therapeutic Range: Moderate Anticoagulant Intensity: INR = 2.0-3.0 High Anticoagulant Intensity: INR = 2.5-3.5 Performed By: #### C BC, PT, PTT, BMP #### [facility] [address] [place] [address] Rouge Sifter: Good Melendez MD #### ANICOT #### [facility] [address] [place], [place] [id number] Rouge Sifter: Troy Link MD PT Coag (PPP) [Time] 12.6 s High 9.1-12.3 [facility] Comment on above: Performed By: #### C BC, PT, PTT, BMP #### [facility] [address] [place] [address] Rouge Sifter: Good Melendez MD #### ANICOT #### [facility] [address] [place], [place] [id number] Rouge Sifter: Troy Link MD Troponinon 07-17-2021 Troponin, High Sens 38 ng/L High 0-22 [facility] Comment on above: Result Comment: High Sensitivity Troponin values cannot be compared with other Troponin methodologies. Patients with high levels of Biotin oral intake (i.e >5mg/day) may have falsely decreased Troponin levels. Samples collected within 8 hours of biotin intake may require additional information for diagnosis. Performed By: #### C BC, PT, PTT, BMP #### [facility] [address] [place] [address] Rouge Sifter: Good Melendez MD #### ANICOT #### [facility] [address] [place], [place] [id number] Rouge Sifter: Troy Link MD APTTon 07-16-2021 aPTT Coag (Bld) [Time] 51.1 s High 20.5-30.5 [facility] Comment on above: Result Comment: IV Heparin Therapy Range: 48.6-77.8 Performed By: #### C BC, PT, PTT, BMP #### [facility] [address] [place] [address] Rouge Sifter: Good Melendez MD #### ANICOT #### [facility] [address] [place], [place] [id number] Rouge Sifter: Troy Link MD aPTT Coag (Bld) [Time] 31.1 s High 20.5-30.5 [facility] Comment on above: Result Comment: IV Heparin Therapy Range: 48.6-77.8 Performed By: #### C BC, PT, PTT, BMP #### [facility] [address] [place] [address] Rouge Sifter: Good Melendez MD #### ANICOT #### [facility] [address] [place], [place] [id number] Rouge Sifter: Troy Link MD Brain Natri. Peptideon 07-16 Natriuretic peptide B (Bld) [Mass/Vol] 1492 pg/mL High <300 [facility] [facility] Comment on above: Result Comment: An age-independent cutoff point of 300 pg/ml has a 98% negative predictive value excluding acute heart failure. Performed By: #### C BC, PT, PTT, BMP #### [facility] [address] [place] [address] Rouge Sifter: Good Melendez MD #### ANICOT #### [facility] [address] [place], [place] [id number] Rouge Sifter: Troy Link MD [facility] Erythrocyte distribution width (RBC) [Ratio] 13.6 % Normal 11.8-14.4 [facility] Comment on above: Performed By: #### C BC, PT, PTT, BMP #### [facility] [address] [place] [address] Rouge Sifter: Good Melendez MD #### ANICOT #### [facility] [address] [place] [address] Rouge Sifter: Troy Link MD Hematocrit (Bld) [Volume fraction] 40.3 % Low 40.7-50.3 [facility] Comment on above: Performed By: #### C BC, PT, PTT, BMP #### [facility] [address] [place] [address] Rouge Sifter: Good Melendez MD #### ANICOT #### [facility] [address] [place] [address] Rouge Sifter: Troy Link MD Hemoglobin (Bld) [Mass/Vol] 13.0 g/dL Normal 13.0-17.0 [facility] Comment on above: Performed By: #### C BC, PT, PTT, BMP #### [facility] [address] [place] [address] [id number] Rouge Sifter: Good Melendez MD #### ANICOT #### [facility] [address] [place] [address] Rouge Sifter: Troy Link MD MCH (RBC) [Entitic mass] 28.7 pg Normal 25.2-33.5 [facility] Comment on above: Performed By: #### C BC, PT, PTT, BMP #### [address] [address] Rouge Sifter: Good Melendez MD #### ANICOT #### [facility] [address] [place] [address] Rouge Sifter: Troy Link MD MCHC (RBC) [Mass/Vol] 32.3 g/dL Normal 28.4-34.8 [facility] Comment on above: Performed By: #### C BC, PT, PTT, BMP #### [address] [address] Rouge Sifter: Good Melendez MD #### ANICOT #### [address] [address] Rouge Sifter: Troy Link MD MCV (RBC) [Entitic vol] 89.0 fL Normal 82.6-102.9 [facility] Comment on above: Performed By: #### C BC, PT, PTT, BMP #### [address] [address] Rouge Sifter: Good Melendez MD #### ANICOT #### [facility] [address] [place] [address] Rouge Sifter: Troy Link MD NRBC Automated 0.0 per 100 WBC Normal 0.0 [facility] Comment on above: Performed By: #### C BC, PT, PTT, BMP #### [address] [address] Rouge Sifter: Good Melendez MD #### ANICOT #### [facility] [address] [place] [address] Rouge Sifter: Troy Link MD Platelet mean volume (Bld) [Entitic vol] 9.6 fL Normal 8.1-13.5 [facility] Comment on above: Performed By: #### C BC, PT, PTT, BMP #### [address] [address] Rouge Sifter: Good Melendez MD #### ANICOT #### [facility] [address] [place] [address] Rouge Sifter: Troy Link MD Platelets (Bld) [#/Vol] 203 10*3/uL Normal 138-453 [facility] Comment on above: Performed By: #### C BC, PT, PTT, BMP #### [address] [address] Rouge Sifter: Good Melendez MD #### ANICOT #### [facility] [address] [place] [address] Rouge Sifter: Troy Link MD RBC (Bld) [#/Vol] 4.53 10*6/uL Normal 4.21-5.77 [facility] Comment on above: Performed By: #### C BC, PT, PTT, BMP #### [address] [address] Rouge Sifter: Good Melendez MD #### ANICOT #### [facility] [address] [place] [address] Rouge Sifter: Troy Link MD WBC (Bld) [#/Vol] 6.8 10*3/uL Normal 3.5-11.3 [facility] Comment on above: Performed By: #### C BC, PT, PTT, BMP #### [facility] [address] [place] [address] Rouge Sifter: Good Melendez MD #### YASSINET #### [facility] [address] [place], [place] [id number] Rouge Sifter: Troy Link MD Troponinon 07-16-2021 Troponin, High Sens 59 ng/L Critically high 0-22 [facility] Comment on above: Result Comment: High Sensitivity Troponin values cannot be compared with other Troponin methodologies. Patients with high levels of Biotin oral intake (i.e >5mg/day) may have falsely decreased Troponin levels. Samples collected within 8 hours of biotin intake may require additional information for diagnosis. Performed By: #### C BC, PT, PTT, BMP #### [facility] [address] [place] [address] Rouge Sifter: Good Melendez MD #### YASSINET #### [facility] [address] [place] [address] Rouge Sifter: Troy Link MD EKG 12 LeadOrdered By: Matias Varela on 05-26-2021 Atrial Rate 108 BPM [employer] Phone: P Mcdaniels -96 degrees [employer] Phone: P-R Interval 192 ms [employer] Phone: Q-T Interval 348 ms [employer] Phone: QRS Duration 94 ms [employer] Phone: QTc Calculation (Bazett) 466 ms [employer] Phone: R Mcdaniels -116 degrees [employer] Phone: T Mcdaniels -114 degrees [employer] Phone: Ventricular Rate 108 BPM [employer] Work Phone: [employer] Phone: EKG 12 Leadon 05-26-2021 Arm lead reversal Sinus Tachycardia V Leads placement error Repeat ECG When compared with ECG of 08-MAY-2021 11:42, Significant changes have occurred PN STV Matias Andrade MD - 05/26/2021 Arm lead reversal Sinus Tachycardia V Leads placement error Repeat ECG When compared with ECG of 08-MAY-2021 11:42, Significant changes have occurred [employer] Work Phone: SURGICAL PATHOLOGY REPORTon 05-26-2021 Surgical [...] with no areas of granularity or masses. 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 There is no evidence of intestinal metaplasia or dysplasia. There is no evidence of organisms suspicious for Helicobacter with the routine H&E stain. SURGICAL PATHOLOGY CONSULTATION Patient Name: SUKHDEEP SIMENTAL [facility] Rec: [id number] Path Number: [id number] [employer] [facility] ANATOMIC PATHOLOGY [address] [place] [address]. [place], [place] [address] [employer] Basic Metabolic Panelon 03-3 Anion gap [Moles/Vol] 10 mmol/L 9 - 17 mmol/L [employer] Calcium [Mass/Vol] 9.1 mg/dL 8.6 - 10. 4 mg/dL [employer] Chloride [Moles/Vol] 106 mmol/L 98 - 10 7 mmol/L [employer] CO2 [Moles/Vol] 23 mmol/L 20 - 31 mmol/L [employer] Creatinine [Mass/Vol] 1.1 mg/dL 0.70 - 1.20 mg/dL [employer] GFR >60 >60 mL/min [employer] GFR Non- >60 >60 mL/min [employer] GFR/1.73 sq M.predicted MDRD (S/P/Bld) [Vol rate/Area] [facility] Comment on above: Average GFR for 50-5 9 years old: 93 mL/min/1.73sq m Chronic Kidney Disease: <60 mL/min/1.73sq m Kidney failure: <15 mL/min/1.73sq m eGFR calculated using average adult body mass. Additional eGFR calculator available at: http://www.Simplify/J[employer]_crcl_2012.htm Glucose [Mass/Vol] 127 mg/dL High 70 - 99 mg/dL [facility] [employer] Interpretation and review of laboratory results Abnormal [employer] Potassium [Moles/Vol] 4.8 mmol/L 3.7 - 5.3 mmol/L [employer] Sodium [Moles/Vol] 139 mmol/L 135 - 144 mmol/L [employer] Urea nitrogen (BldV) [Mass/Vol] 24 mg/dL High 6 - 20 mg/dL [facility] [employer] Basic Metabolic Profon 05-25 (cont.) Normal [facility] Comment on above: Result Comment: Aver age GFR for 50-59 years old: 93 mL/min/1.73sq m Chronic Kidney Disease: <60 mL/min/1.73sq m Kidney failure: <15 mL/min/1.73sq m eGFR calculated using average adult body mass. Additional eGFR calculator available at: http://www.Simplify/[employer]_crcl_2012.htm Performed By: #### C BC, PT, PTT, BMP #### [facility] [address] [place], [place] [id number] Rouge Sifter: Good Melendez MD #### JIMENA #### [facility] [address] [place] [address] Rouge Sifter: Troy Link MD Anion gap [Moles/Vol] 10 mmol/L Normal - [facility] Comment on above: Performed By: #### C BC, PT, PTT, BMP #### [facility] [address] [place] [address] Rouge Sifter: Good Melendez MD #### ANICOT #### [facility] [address] [place], [place] [id number] Rouge Sifter: Troy Link MD Calcium [Mass/Vol] 9.1 mg/dL Normal 8.6-10.4 [facility] Comment on above: Performed By: #### C BC, PT, PTT, BMP #### [address] [address] Rouge Sifter: Good Melendez MD #### ANICOT #### [address] [id number] Rouge Sifter: Troy Link MD Chloride [Moles/Vol] 106 mmol/L Normal 98-107 [facility] Comment on above: Performed By: #### C BC, PT, PTT, BMP #### [address] [address] Rouge Sifter: Good Melendez MD #### ANICOT #### [address] [id number] Rouge Sifter: Troy Link MD CO2 [Moles/Vol] 23 mmol/L Normal 20-31 [facility] Comment on above: Performed By: #### C BC, PT, PTT, BMP #### [address] [address] Rouge Sifter: Good Melendez MD #### ANICOT #### [facility] [address] [place], [place] [id number] Rouge Sifter: Troy Link MD Creatinine [Mass/Vol] 1.10 mg/dL Normal 0.70-1.20 [facility] Comment on above: Performed By: #### C BC, PT, PTT, BMP #### [facility] [address] [place] [address] Rouge Sifter: Good Melendez MD #### ANICOT #### [facility] [address] [place], [place] [id number] Rouge Sifter: Troy Link MD GFR, Amer >60 Normal >60 [facility] Comment on above: Performed By: #### C BC, PT, PTT, BMP #### [facility] [address] [place] [address] Rouge Sifter: Good Melendez MD #### ANICOT #### [facility] [address] [place] [address] Rouge Sifter: Troy Link MD GFR,non Amer >60 Normal >60 [facility] Comment on above: Performed By: #### C BC, PT, PTT, BMP #### [address] [address] Rouge Sifter: Good Melendez MD #### ANICOT #### [facility] [address] [place] [address] Rouge Sifter: Troy Link MD Glucose [Mass/Vol] 127 mg/dL High 70-99 [facility] Comment on above: Performed By: #### C BC, PT, PTT, BMP #### [facility] [address] [place] [address] Rouge Sifter: Good Melendez MD #### ANICOT #### [facility] [address] [place] [address] Rouge Sifter: Troy Link MD Potassium [Moles/Vol] 4.8 mmol/L Normal 3.7-5.3 [facility] Comment on above: Performed By: #### C BC, PT, PTT, BMP #### [facility] [address] [place] [id number] Rouge Sifter: Good Melendez MD #### ANICOT #### [facility] [address] [place] [address] Rouge Sifter: Troy Link MD Sodium [Moles/Vol] 139 mmol/L Normal 135-144 [facility] Comment on above: Performed By: #### C BC, PT, PTT, BMP #### [address] [address] Rouge Sifter: Good Melendez MD #### ANICOT #### [facility] [address] [place] [address] Rouge Sifter: Troy Link MD Urea nitrogen [Mass/Vol] 24 mg/dL High 6-20 [facility] Comment on above: Performed By: #### C BC, PT, PTT, BMP #### [address] [address] Rouge Sifter: Good Melendez MD #### ANICOT #### [facility] [address] [place] [address] Rouge Sifter: Troy Link MD [facility] Erythrocyte distribution width (RBC) [Ratio] 13.9 % Normal 11.8-14.4 [facility] Comment on above: Performed By: #### C BC, PT, PTT, BMP #### [facility] [address] [place] [address] Rouge Sifter: Good Melendez MD #### ANICOT #### [facility] [address] [place] [address] Rouge Sifter: Troy Link MD Hematocrit (Bld) [Volume fraction] 39.5 % Low 40.7-50.3 [facility] Comment on above: Performed By: #### C BC, PT, PTT, BMP #### [address] [address] Rouge Sifter: Good Melendez MD #### ANICOT #### [facility] [address] [place] [address] Rouge Sifter: Troy Link MD Hemoglobin (Bld) [Mass/Vol] 12.2 g/dL Low 13.0-17.0 [facility] Comment on above: Performed By: #### C BC, PT, PTT, BMP #### [address] [address] Rouge Sifter: Good Meelndez MD #### ANICOT #### [facility] [address] [place] [address] Rouge Sifter: Troy Link MD MCH (RBC) [Entitic mass] 30.2 pg Normal 25.2-33.5 [facility] Comment on above: Performed By: #### C BC, PT, PTT, BMP #### [address] [address] Rouge Sifter: Good Melendez MD #### ANICOT #### [facility] [address] [place] [address] Rouge Sifter: Troy Link MD MCHC (RBC) [Mass/Vol] 30.9 g/dL Normal 28.4-34.8 [facility] Comment on above: Performed By: #### C BC, PT, PTT, BMP #### [address] [address] Rouge Sifter: Good Melendez MD #### ANICOT #### [facility] [address] [place] [address] Rouge Sifter: Troy Link MD MCV (RBC) [Entitic vol] 97.8 fL Normal 82.6-102.9 [facility] Comment on above: Performed By: #### C BC, PT, PTT, BMP #### [address] [address] Rouge Sifter: Good Melendez MD #### ANICOT #### [facility] [address] [place] [address] Rouge Sifter: Troy Link MD NRBC Automated 0.0 per 100 WBC Normal 0.0 [facility] Comment on above: Performed By: #### C BC, PT, PTT, BMP #### [address] [address] Rouge Sifter: Good Melendez MD #### ANICOT #### [facility] [address] [place], [place] [id number] Rouge Sifter: Troy Link MD Platelet mean volume (Bld) [Entitic vol] 8.8 fL Normal 8.1-13.5 [facility] Comment on above: Performed By: #### C BC, PT, PTT, BMP #### [address] [address] Rouge Sifter: Good Melendez MD #### ANICOT #### [facility] [address] [place] [address] Rouge Sifter: Troy Link MD Platelets (Bld) [#/Vol] 263 10*3/uL Normal 138-453 [facility] Comment on above: Performed By: #### C BC, PT, PTT, BMP #### [address] [address] Rouge Sifter: Good Melendez MD #### ANICOT #### [facility] [address] [place], [place] [id number] Rouge Sifter: Troy Link MD RBC (Bld) [#/Vol] 4.04 10*6/uL Low 4.21-5.77 [facility] Comment on above: Performed By: #### C BC, PT, PTT, BMP #### [facility] [address] [place], [place] [id number] Rouge Sifter: Good Melendez MD #### ANAPARNAT #### [facility] [address] [place], [place] [id number] Rouge Sifter: Troy Link MD WBC (Bld) [#/Vol] 10.8 10*3/uL Normal 3.5-11.3 [facility] Comment on above: Performed By: #### C BC, PT, PTT, BMP #### [facility] [address] [place] [address] Rouge Sifter: Good Melendez MD #### ANICOT #### [facility] [address] [place] [address] Rouge Sifter: Troy Link MD Hematocrit (Bld) [Volume fraction] 39.5 % Low 40.7 - 50.3 % [facility] Hemoglobin.gastroint estinal spec 1 Ql (Stl) 12.2 g/dL Low 13.0 - 17.0 g/dL [facility] Interpretation and review of laboratory results Abnormal [facility] MCH (RBC) [Entitic mass] 30.2 pg 25.2 - 33.5 pg [facility] MCHC (RBC) [Mass/Vol] 30.9 g/dL 28.4 - 34.8 g/dL [facility] MCV (RBC) [Entitic vol] 97.8 fL 82.6 - 102.9 fL [facility] [employer] NRBC Automated 0.0 0.0 per 100 WBC [facility] [employer] Platelet distribution width (Bld) [Ratio] 13.9 % 11.8 - 14.4 % [facility] Platelet mean volume (Bld) [Entitic vol] 8.8 fL 8.1 - 13.5 fL [facility] [employer] Platelets (Bld) [#/Vol] 263 10*3/uL [facility] RBC (Bld) [#/Vol] 4.04 10*6/uL Low 4.21 - 5.7 7 m/uL [facility] [employer] WBC (Bld) [#/Vol] 10.8 10*3/uL [facility] Magnesiumon 05-25-2021 Magnesium [Mass/Vol] 1.9 mg/dL Normal 1.6-2.6 [facility] Comment on above: Performed By: #### C BC, PT, PTT, BMP #### [facility] [place], [place] [id number] Rouge Sifter: Good Melendez MD #### ANICOT #### [facility] [address] [place] [address] Rouge Sifter: Troy Link MD Magnesium [Mass/Vol] 1.9 mg/dL 1.6 - 2 .6 mg/dL [facility] Surgical Pathologyon 022 Surgical Pathology (NOTE) -- [...] with no areas of granularity or masses. 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 There is no evidence of intestinal metaplasia or dysplasia. There is no evidence of organisms suspicious for Helicobacter with the routine CANDY stain. SURGICAL PATHOLOGY CONSULTATION Patient Name: SUKHDEEP SIMENTAL [facility] Rec: [id number] Path Number: [id number] [facility] ANATOMIC PATHOLOGY [address] [place] [id number] Normal [facility] Comment on above: Performed By: #### C BC, PT, PTT, BMP #### [facility] [place], [place] [id number] Rouge Sifter: Good Melendez MD #### ANICOT #### [facility] [address] [place] [address] Rouge Sifter: Troy Link MD Basic Metabolic Panelon 04-27 Anion gap [Moles/Vol] 13 mmol/L 9 - 17 mmol/L [employer] Calcium [Mass/Vol] 9.1 mg/dL 8.6 - 10. 4 mg/dL [employer] Chloride [Moles/Vol] 102 mmol/L 98 - 10 7 mmol/L [employer] CO2 [Moles/Vol] 17 mmol/L Low 20 - 31 mmol/L [employer] Creatinine [Mass/Vol] 1.16 mg/dL 0.70 - 1.20 mg/dL [employer] GFR >60 >60 mL/min [employer] GFR Non- >60 >60 mL/min [employer] GFR/1.73 sq M.predicted MDRD (S/P/Bld) [Vol rate/Area] [facility] Comment on above: Average GFR for 50-5 9 years old: 93 mL/min/1.73sq m Chronic Kidney Disease: <60 mL/min/1.73sq m Kidney failure: <15 mL/min/1.73sq m eGFR calculated using average adult body mass. Additional eGFR calculator available at: http://www.Simplify/multiple_crcl_2012.htm Glucose [Mass/Vol] 203 mg/dL High 70 - 99 mg/dL [facility] Interpretation and review of laboratory results Abnormal [employer] Potassium [Moles/Vol] 4.2 mmol/L 3.7 - 5.3 mmol/L [employer] Sodium [Moles/Vol] 132 mmol/L Low 135 - 144 mmol/L [facility] Urea nitrogen (BldV) [Mass/Vol] 29 mg/dL High 6 - 20 mg/dL [facility] Basic Metabolic Profon 05-24 (cont.) Normal [facility] Comment on above: Result Comment: Aver age GFR for 50-59 years old: 93 mL/min/1.73sq m Chronic Kidney Disease: <60 mL/min/1.73sq m Kidney failure: <15 mL/min/1.73sq m eGFR calculated using average adult body mass. Additional eGFR calculator available at: http://www.ProTenders.GapJumpers/multiple_crcl_2012.htm Performed By: #### C BC, BMP #### [address] [address] Rouge Sifter: Good Melendez MD Anion gap [Moles/Vol] 13 mmol/L Normal 9-17 [facility] Comment on above: Performed By: #### C BC, BMP #### [address] [address] Rouge Sifter: Good Melendez MD Calcium [Mass/Vol] 9.1 mg/dL Normal 8.6-10.4 [facility] Comment on above: Performed By: #### C JASE, BMP #### [address] [address] Rouge Sifter: Good Melendez MD Chloride [Moles/Vol] 102 mmol/L Normal 98-107 [facility] Comment on above: Performed By: #### C BC, BMP #### [address] [address] Rouge Sifter: Good Melendez MD CO2 [Moles/Vol] 17 mmol/L Low 20-31 [facility] Comment on above: Performed By: #### C BC, BMP #### [address] [address] Rouge Sifter: Good Melendze MD Creatinine [Mass/Vol] 1.16 mg/dL Normal 0.70-1.20 [facility] Comment on above: Performed By: #### C BC, BMP #### [address] [address] Rouge Sifter: Good Melendez MD GFR, Amer >60 Normal >60 [facility] Comment on above: Performed By: #### C BC, BMP #### [facility] [address] [place] [address] Rouge Sifter: Good Melendez MD GFR,non Amer >60 Normal >60 [facility] Comment on above: Performed By: #### C BC, BMP #### [facility] [address] [place] [address] Rouge Sifter: Good Melendez MD Glucose [Mass/Vol] 203 mg/dL High 70-99 [facility] Comment on above: Performed By: #### C BC, BMP #### [facility] [address] [place] [address] Rouge Sifter: Good Melendez MD Potassium [Moles/Vol] 4.2 mmol/L Normal 3.7-5.3 [facility] Comment on above: Performed By: #### C BC, BMP #### [facility] [address] [place] [address] Rouge Sifter: Good Melendez MD Sodium [Moles/Vol] 132 mmol/L Low 135-144 [facility] Comment on above: Performed By: #### C BC, BMP #### [facility] [address] [place] [address] Rouge Sifter: Good Melendez MD Urea nitrogen [Mass/Vol] 29 mg/dL High 6-20 [facility] Comment on above: Performed By: #### C BC, BMP #### [facility] [address] [place] [address] Rouge Sifter: Good Melendez MD CBCon 05-24-2021 Erythrocyte distribution width (RBC) [Ratio] 14.0 % Normal 11.8-14.4 [facility] Comment on above: Performed By: #### C BC, BMP #### [facility] [address] [place] [address] Rouge Sifter: Good Melendez MD Hematocrit (Bld) [Volume fraction] 41.0 % Normal 40.7-50.3 [facility] Comment on above: Performed By: #### C BC, BMP #### [address] [address] Rouge Sifter: Good Melendez MD Hemoglobin (Bld) [Mass/Vol] 12.7 g/dL Low 13.0-17.0 [facility] Comment on above: Performed By: #### C BC, BMP #### [facility] [address] [place] [address] Rouge Sifter: Good Melendez MD MCH (RBC) [Entitic mass] 29.5 pg Normal 25.2-33.5 [facility] Comment on above: Performed By: #### C JASE, BMP #### [address] [address] Rouge Sifter: Good Melendez MD MCHC (RBC) [Mass/Vol] 31.0 g/dL Normal 28.4-34.8 [facility] Comment on above: Performed By: #### C JASE, BMP #### [address] [address] Rouge Sifter: Good Melendez MD MCV (RBC) [Entitic vol] 95.3 fL Normal 82.6-102.9 [facility] Comment on above: Performed By: #### C BC, BMP #### [facility] [address] [place] [address] Rouge Sifter: Good Melendez MD NRBC Automated 0.0 per 100 WBC Normal 0.0 [facility] Comment on above: Performed By: #### C BC, BMP #### [facility] [address] [place] [id number] Rouge Sifter: Good Melendez MD Platelet mean volume (Bld) [Entitic vol] 8.8 fL Normal 8.1-13.5 [facility] Comment on above: Performed By: #### C BC, BMP #### [facility] [address] [place] [address] Rouge Sifter: Good Melendez MD Platelets (Bld) [#/Vol] 273 10*3/uL Normal 138-453 [facility] Comment on above: Performed By: #### C BC, BMP #### [facility] [address] [place] [address] Rouge Sifter: Good Melendez MD RBC (Bld) [#/Vol] 4.30 10*6/uL Normal 4.21-5.77 [facility] Comment on above: Performed By: #### C JASE, BMP #### [facility] [address] [place] [address] Rouge Sifter: Good Melendez MD WBC (Bld) [#/Vol] 9.6 10*3/uL Normal 3.5-11.3 [facility] Comment on above: Performed By: #### C BC, BMP #### [facility] [address] [place] [address] Rouge Sifter: Good Melendez MD CBC without Diffon Hematocrit (Bld) [Volume fraction] 41.0 % 40.7 - 50.3 % [facility] Hemoglobin.gastroint estinal spec 1 Ql (Stl) 12.7 g/dL Low 13.0 - 17.0 g/dL [facility] Interpretation and review of laboratory results Abnormal [employer] MCH (RBC) [Entitic mass] 29.5 pg 25.2 - 33.5 pg [employer] MCHC (RBC) [Mass/Vol] 31.0 g/dL 28.4 - 34.8 g/dL [employer] MCV (RBC) [Entitic vol] 95.3 fL 82.6 - 102.9 fL [employer] NRBC Automated 0.0 0.0 per 100 WBC [employer] Platelet distribution width (Bld) [Ratio] 14.0 % 11.8 - 14.4 % [facility] Platelet mean volume (Bld) [Entitic vol] 8.8 fL 8.1 - 13.5 fL [facility] Platelets (Bld) [#/Vol] 273 10*3/uL [facility] RBC (Bld) [#/Vol] 4.30 10*6/uL 4.21 - 5.7 7 m/uL [facility] WBC (Bld) [#/Vol] 9.6 10*3/uL [facility] COVID-19, Rapidon 05-24-2021 SARS-CoV-2 (COVID-19) RNA MUKUL+probe Ql (Unsp spec) Not detected Not Detected [facility] Comment on above: Rapid NAAT: The specimen [...] management decisions. Fact sheet for Healthcare Providers: https://www.fda.gov/media/384121/download Fact sheet for Patients: https://www.fda.gov/media/715013/download Methodology: Isothermal Nucleic Acid Amplification Specimen Description .NASOPHARYNGEAL SWAB [facility] Calcium, Ionicon 05-24-2021 Calcium [Moles/Vol] 1.31 mmol/L Normal 1.13-1.33 [facility] Comment on above: Performed By: #### I OCSETH MG, BRITTANIE #### [facility] [employer] [employer] [facility] [place] [address] Rouge Sifter: Good Melendez MD Calcium, Ionizedon Calcium [Moles/Vol] 1.31 mmol/L 1.13 - 1 .33 mmol/L [facility] Magnesiumon 05-24-2021 Magnesium [Mass/Vol] 2.0 mg/dL Normal 1.6-2.6 [facility] Comment on above: Performed By: #### C BC, PT, PTT, BMP #### [facility] [address] [place], [place] [id number] Rouge Sifter: Good Melendez MD #### ANICOT #### [facility] [address] [place] [address] Rouge Sifter: Troy Link MD Magnesium [Mass/Vol] 2.0 mg/dL 1.6 - 2 .6 mg/dL [facility] No Panel Informationon 05-24 [facility] POC Glucose Fingerstickon Glucose [Mass/Vol] 199 mg/dL High 75 - 110 mg/dL [facility] Interpretation and review of laboratory results Abnormal [facility] Glucose [Mass/Vol] 209 mg/dL High 75 - 110 mg/dL [facility] Interpretation and review of laboratory results Abnormal [facility] POCT Glucoseon 05-24-2021 Glucose [Mass/Vol] 150 mg/dL High 74 - 100 mg/dL [facility] Interpretation and review of laboratory results Abnormal [facility] POTASSIUM (POC)on 05-24-2021 Potassium [Moles/Vol] 3.9 mmol/L 3.5 - 4.5 mmol/L [facility] Phosphoruson 05-24-2021 Phosphate [Mass/Vol] 3.8 mg/dL 2.5 - 4 .5 mg/dL [facility] Phosphorus, Inorg.on 022 Phosphorus, Inorg. 3.8 mg/dL Normal 2.5-4.5 [facility] Comment on above: Performed By: #### C BC, PT, PTT, BMP #### [facility] [address] [place], [place] [id number] Rouge Sifter: Good Melendez MD #### ANICOT #### [facility] [address] [place] [address] Rouge Sifter: Troy Link MD [id number] 05-24-2021 SARS-CoV-2 (COVID-19) RNA MUKUL+probe Ql (Unsp spec) Not detected Normal NOTDET [facility] Comment on above: Result Comment: Rapid NAAT: [...] management decisions. Fact sheet for Healthcare Providers: https://www.fda.gov/media/574616/download Fact sheet for Patients: https://www.fda.gov/media/606830/download Methodology: Isothermal Nucleic Acid Amplification Performed By: #### C OVRB #### [facility] [address] [place] [address] Rouge Sifter: Good Melendez MD Nicotineon 05-11-2021 [id number] <2 Normal [facility] Comment on above: Performed By: #### C BC, PT, PTT, BMP #### [facility] [address] [place] [address] Rouge Sifter: Good Melendez MD #### ANICOT #### [facility] [address] [place] [address] Rouge Sifter: Troy Link MD Cotinine <2 Normal [facility] Comment on above: Performed By: #### C BC, PT, PTT, BMP #### [facility] [address] [place] [address] Rouge Sifter: Good Melendez MD #### ANICOT #### [facility] [employer] [address] [place] [address] Rouge Sifter: Troy Link MD Nicotine <2 Normal [facility] Comment on above: Result Comment: (NOT E) [...] developed and its performance characteristics determined by [facility]. It has not been cleared or approved by the US Food and Drug Administration. This test was performed in a CLIA certified laboratory and is intended for clinical purposes. Performed By: [facility] [address] [place] [id number] Senior Php Web Developer: Ayse Diaz MD Performed By: #### C BC, PT, PTT, BMP #### [facility] [place] [address] Rouge Sifter: Good Melendez MD #### ANICOT #### [facility] [employer] [address] [place] [address] Rouge Sifter: Troy Link MD Nicotine, Bloodon 05-11-2021 8-IL-Avpizbsg <2 ng/mL [facility] h Cotinine <2 ng/mL [facility] Nicotine <2 ng/mL [facility] Comment on above: (NOTE) Consistent with abstinence [...] developed and its performance characteristics determined by [employer]. It has not been cleared or approved by the US Food and Drug Administration. This test was performed in a CLIA certified laboratory and is intended for clinical purposes. Performed By: [facility] [address] [place] [id number] Senior Php Web Developer: Ayse Diaz MD [facility] EKG 12 LeadOrdered By: Unkno wn Result on 05-09-2021 Atrial Rate 122 BPM [employer] P Mcdaniels 55 degrees [employer] P-R Interval 164 ms [employer] Q-T Interval 298 ms [employer] QRS Duration 84 ms [facility] Q[facility] Calculation (Bazett) 424 ms [employer] R Mcdaniels -11 degrees [employer] T Mcdaniels 42 degrees [employer] Ventricular Rate 122 BPM [facility] 12 Leadon 05-09-2021 Sinus tachycardia Otherwise normal ECG No previous ECGs available [facility] STV MUSE Result, Unknown Provider - 05/09/2021 Sinus tachycardia Otherwise normal ECG No previous ECGs available [employer] Work Phone: XR CHEST (2 VW)on 05-09-2021 [...] No acute airspace disease identified. Interpreted by: Singh Calero MD Signed by: Singh Calero MD 05/09/21 Final result Normal [facility] No acute airspace disease identified. [facility] EXAMINATION: TWO XRAY VIEWS OF THE [...] effusion. No acute osseous abnormality is identified. [facility] Singh Calero MD - 05/09/2021 EXAMINATION: TWO XRAY [...] identified. IMPRESSION: No acute airspace disease identified. [employer] Work Phone: XR CHEST (2 VW)Ordered By: Carlos Calero on 05-09-2021 [employer] Work Phone: APTTon 05-08-2021 aPTT Coag (Bld) [Time] 23.1 s Normal 20.5-30.5 [facility] Comment on above: Result Comment: IV Heparin Therapy Range: 48.6-77.8 Performed By: #### C BC, PT, PTT, BMP #### [facility] [address] [place], [place] [id number] Rouge Sifter: Good Melendez MD #### ANICOT #### [facility] [address] [place] [address] Rouge Sifter: Troy Link MD aPTT Coag (Bld) [Time] 23.1 s [facility] [employer] Comment on above: IV Heparin Therapy Range: 48.6-77.8 Basic Metabolic Panelon 03- Anion gap [Moles/Vol] 15 mmol/L 9 - 17 mmol/L [facility] Calcium [Mass/Vol] 9.4 mg/dL 8.6 - 10. 4 mg/dL [facility] Chloride [Moles/Vol] 103 mmol/L 98 - 10 7 mmol/L [facility] CO2 [Moles/Vol] 19 mmol/L Low 20 - 31 mmol/L [facility] Creatinine [Mass/Vol] 1.59 mg/dL High 0.70 - 1.20 mg/dL [facility] GFR 55 mL/min Low >60 [facility] GFR Non- 45 mL/min Low >60 [facility] GFR/1.73 sq M.predicted MDRD (S/P/Bld) [Vol rate/Area] [facility] Comment on above: Average GFR for 50-5 9 years old: 93 mL/min/1.73sq m Chronic Kidney Disease: <60 mL/min/1.73sq m Kidney failure: <15 mL/min/1.73sq m eGFR calculated using average adult body mass. Additional eGFR calculator available at: http://www.Simplify/[employer]_crcl_2012.htm Glucose [Mass/Vol] 141 mg/dL High 70 - 99 mg/dL [facility] Interpretation and review of laboratory results Abnormal [facility] Potassium [Moles/Vol] 5.3 mmol/L 3.7 - 5.3 mmol/L [facility] Sodium [Moles/Vol] 137 mmol/L 135 - 144 mmol/L [facility] Urea nitrogen (BldV) [Mass/Vol] 37 mg/dL High 6 - 20 mg/dL [facility] Basic Metabolic Profon 05-08 (cont.) Normal [facility] Comment on above: Result Comment: Aver age GFR for 50-59 years old: 93 mL/min/1.73sq m Chronic Kidney Disease: <60 mL/min/1.73sq m Kidney failure: <15 mL/min/1.73sq m eGFR calculated using average adult body mass. Additional eGFR calculator available at: http://www.Simplify/multiple_crcl_2012.htm Performed By: #### C BC, PT, PTT, BMP #### [facility] [employer] [facility] [place] [address] Rouge Sifter: Good Melendez MD #### ANICOT #### [facility] [address] [place], [place] [id number] Rouge Sifter: Troy Link MD Anion gap [Moles/Vol] 15 mmol/L Normal 9-17 [facility] Comment on above: Performed By: #### C BC, PT, PTT, BMP #### [address] [address] Rouge Sifter: Good Melendez MD #### ANICOT #### [facility] [address] [place], [place] [id number] Rouge Sifter: Troy Link MD Calcium [Mass/Vol] 9.4 mg/dL Normal 8.6-10.4 [facility] Comment on above: Performed By: #### C BC, PT, PTT, BMP #### [address] [address] Rouge Sifter: Good Melendez MD #### ANICOT #### [facility] [address] [place] [address] Rouge Sifter: Troy Link MD Chloride [Moles/Vol] 103 mmol/L Normal 98-107 [facility] Comment on above: Performed By: #### C BC, PT, PTT, BMP #### [address] [address] Rouge Sifter: Good Melendez MD #### ANICOT #### [facility] [address] [place] [address] Rouge Sifter: Troy Link MD CO2 [Moles/Vol] 19 mmol/L Low 20-31 [facility] Comment on above: Performed By: #### C BC, PT, PTT, BMP #### [facility] [place] [address] Rouge Sifter: Good Melendez MD #### ANICOT #### [facility] [address] [place], [place] [id number] Rouge Sifter: Troy Link MD Creatinine [Mass/Vol] 1.59 mg/dL High 0.70-1.20 [facility] Comment on above: Performed By: #### C BC, PT, PTT, BMP #### [facility] [address] [place] [address] Rouge Sifter: Good Melendez MD #### ANICOT #### [facility] [address] [place] [address] Rouge Sifter: Troy Link MD GFR, Amer 55 mL/min Low >60 [facility] Comment on above: Performed By: #### C BC, PT, PTT, BMP #### [facility] [address] [place] [address] Rouge Sifter: Good Melendez MD #### ANICOT #### [facility] [address] [place], [place] [id number] Rouge Sifter: Troy Link MD GFR,non Amer 45 mL/min Low >60 [facility] Comment on above: Performed By: #### C BC, PT, PTT, BMP #### [facility] [address] [place] [address] Rouge Sifter: Good Melendez MD #### ANICOT #### [facility] [address] [place] [address] Rouge Sifter: Troy Link MD Glucose [Mass/Vol] 141 mg/dL High 70-99 [facility] Comment on above: Performed By: #### C BC, PT, PTT, BMP #### [facility] [address] [place], [place] [address], [place] [address] Rouge Sifter: Good Melendez MD #### ANICOT #### [facility] [address] [place] [address] Rouge Sifter: Troy Link MD Potassium [Moles/Vol] 5.3 mmol/L Normal 3.7-5.3 [facility] Comment on above: Performed By: #### C BC, PT, PTT, BMP #### [address] [id number] Rouge Sifter: Good Melendez MD #### ANICOT #### [address] [address] Rouge Sifter: Troy Link MD Sodium [Moles/Vol] 137 mmol/L Normal 135-144 [facility] Comment on above: Performed By: #### C BC, PT, PTT, BMP #### [address] [address] Rouge Sifter: Good Melendez MD #### ANICOT #### [address] [address] Rouge Sifter: Troy Link MD Urea nitrogen [Mass/Vol] 37 mg/dL High 6-20 [facility] Comment on above: Performed By: #### C BC, PT, PTT, BMP #### [address] [address] Rouge Sifter: Good Melendez MD #### ANICOT #### [facility] [address] [place] [address] Rouge Sifter: Troy Link MD CBCon 05-08-2021 Erythrocyte distribution width (RBC) [Ratio] 14.1 % Normal 11.8-14.4 [facility] Comment on above: Performed By: #### C BC, PT, PTT, BMP #### [address] [place] [address] Rouge Sifter: Good Melendez MD #### ANICOT #### [facility] [address] [place] [address] Rouge Sifter: Troy Link MD Hematocrit (Bld) [Volume fraction] 43.6 % Normal 40.7-50.3 [facility] Comment on above: Performed By: #### C BC, PT, PTT, BMP #### [facility] [address] [place] [address] Rouge Sifter: Good Melendez MD #### ANICOT #### [facility] [address] [place] [address] Rouge Sifter: Troy Link MD Hemoglobin (Bld) [Mass/Vol] 13.5 g/dL Normal 13.0-17.0 [facility] Comment on above: Performed By: #### C BC, PT, PTT, BMP #### [address] [address] Rouge Sifter: Good Melendez MD #### ANICOT #### [facility] [address] [place] [address] Rouge Sifter: Troy Link MD MCH (RBC) [Entitic mass] 29.4 pg Normal 25.2-33.5 [facility] Comment on above: Performed By: #### C BC, PT, PTT, BMP #### [address] [address] Rouge Sifter: Good Melendez MD #### ANICOT #### [facility] [address] [place] [address] Rouge Sifter: Troy Link MD MCHC (RBC) [Mass/Vol] 31.0 g/dL Normal 28.4-34.8 [facility] Comment on above: Performed By: #### C BC, PT, PTT, BMP #### [facility] [employer] [facility] [place] [address] Rouge Sifter: Good Melendez MD #### ANICOT #### [facility] [address] [place], [place] [id number] Rouge Sifter: Troy Link MD MCV (RBC) [Entitic vol] 95.0 fL Normal 82.6-102.9 [facility] Comment on above: Performed By: #### C BC, PT, PTT, BMP #### [address] [id number] Rouge Sifter: Good Melendez MD #### ANICOT #### [facility] [address] [place] [address] Rouge Sifter: Troy Link MD NRBC Automated 0.0 per 100 WBC Normal 0.0 [facility] Comment on above: Performed By: #### C BC, PT, PTT, BMP #### [address] [address] Rouge Sifter: Good Melendez MD #### ANICOT #### [facility] [address] [place] [address] Rouge Sifter: Troy Link MD Platelet mean volume (Bld) [Entitic vol] 8.7 fL Normal 8.1-13.5 [facility] Comment on above: Performed By: #### C BC, PT, PTT, BMP #### [address] [address] Rouge Sifter: Good Melendez MD #### ANICOT #### [facility] [address] [place] [address] Rouge Sifter: Troy Link MD Platelets (Bld) [#/Vol] 279 10*3/uL Normal 138-453 [facility] Comment on above: Performed By: #### C BC, PT, PTT, BMP #### [facility] [place], [place] [address] Rouge Sifter: Good Melendez MD #### ANICOT #### [facility] [address] [place], [place] [id number] Rouge Sifter: Troy Link MD RBC (Bld) [#/Vol] 4.59 10*6/uL Normal 4.21-5.77 [facility] Comment on above: Performed By: #### C BC, PT, PTT, BMP #### [facility] [address] [place] [id number] Rouge Sifter: Good Melendez MD #### ANICOT #### [facility] [address] [place], [place] [address] Rouge Sifter: Troy Link MD WBC (Bld) [#/Vol] 8.9 10*3/uL Normal 3.5-11.3 [facility] Comment on above: Performed By: #### C BC, PT, PTT, BMP #### [facility] [address] [place] [id number] Rouge Sifter: Good Melendez MD #### ANICOT #### [facility] [address] [place], [place] [id number] Rouge Sifter: Troy Link MD Hematocrit (Bld) [Volume fraction] 43.6 % 40.7 - 50.3 % [facility] Hemoglobin.gastroint estinal spec 1 Ql (Stl) 13.5 g/dL 13.0 - 17.0 g/dL [facility] MCH (RBC) [Entitic mass] 29.4 pg 25.2 - 33.5 pg [facility] [employer] MCHC (RBC) [Mass/Vol] 31.0 g/dL 28.4 - 34.8 g/dL [facility] MCV (RBC) [Entitic vol] 95.0 fL 82.6 - 102.9 fL [facility] [employer] NRBC Automated 0.0 0.0 per 100 WBC [facility] Platelet distribution width (Bld) [Ratio] 14.1 % 11.8 - 14.4 % [facility] Platelet mean volume (Bld) [Entitic vol] 8.7 fL 8.1 - 13.5 fL [facility] Platelets (Bld) [#/Vol] 279 10*3/uL [facility] RBC (Bld) [#/Vol] 4.59 10*6/uL 4.21 - 5.7 7 m/uL [facility] WBC (Bld) [#/Vol] 8.9 10*3/uL [facility] No Panel Informationon 05-08 [facility] PTon 05-08-2021 INR Coag (PPP) [Relative time] 1.1 {INR} Normal [facility] Comment on above: Result Comment: Therapeutic Range: Moderate Anticoagulant Intensity: INR = 2.0-3.0 High Anticoagulant Intensity: INR = 2.5-3.5 Performed By: #### C BC, PT, PTT, BMP #### [facility] [address] [place] [address] Rouge Sifter: Good Melendez MD #### ANICOT #### [facility] [address] [place] [address] Rouge Sifter: Troy Link MD PT Coag (PPP) [Time] 11.2 s Normal 9.1-12.3 [facility] Comment on above: Performed By: #### C BC, PT, PTT, BMP #### [facility] [address] [place] [address] Rouge Sifter: Good Melendez MD #### ANICOT #### [facility] [address] [place] [address] Rouge Sifter: Troy Link MD Protime-INRon 05-08-2021 INR Coag (Bld) [Relative time] 1.1 {INR} [facility] Comment on above: Therapeutic Range: Moderate Anticoagulant Intensity: INR = 2.0-3.0 High Anticoagulant Intensity: INR = 2.5-3.5 PT Coag (PPP) [Time] 11.2 s [employer] XR CHEST (2 VW)on 05-08-2021 Radiology Study observation (narrative) [employer] Work Phone: CT LUMBAR SPINE W CONTRASTon 02-28-2021 CT LUMBAR SPINE W CONTRAST [facility] Department of Radiology [address] [place] [address] ======== Patient Name: SUKHDEEP SIMENTAL : 1965 Sex: M Age: Race: White Pt. Location: Patient Status: D Ordered Date: 02/13/2021 9:35:00 AM Completed Date: 02/28/2021 02:00 PM Requesting Provider: JASON MILLER Attending Provider: JASON MILLER Report Copy To: Signs & Symptoms: Z98.1 Arthrodesis status I10 History: [place] Comments: Exam: CT LUMBAR SPINE W CONTRAST [...] spondylotic changes as described above Electronically signed: Petar Mg. Transcribed by: [email or web address], User Resident: Electronically Signed by: PETAR MG @ 03/01/2021 02:21 PM Normal [facility] LUMBAR MYELOGRAMon 2 LUMBAR MYELOGRAM [facility] Department of Radiology [address] [place] [id number] ======== Patient Name: SUKHDEEP SIMENTAL : 1965 Sex: M Age: Race: White Pt. Location: 84 Patient Status: O Ordered Date: 02/13/2021 9:35:00 AM Completed Date: 02/28/2021 02:06 PM Requesting Provider: JASON MILLER Attending Provider: JASON MILLER Report Copy To: Signs & Symptoms: Z98.1 Arthrodesis status I10 History: [phone] Is patient on thinners? Eliquis hold 48hrs. 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 Consent was obtained. Timeout: Superior protocol timeout verification performed. PROCEDURE: Estimated blood [...] findings. Approved by:Ochoa Rogers02/28/2021 3:03 PM. I, Petar Mg,have reviewed the image(s) and agree with the findings in this report. Electronically signed: Petar Mg. Transcribed by: [email or web address], User Resident: OCHOA HONG Electronically Signed by: PETAR MG @ 02/28/2021 03:13 PM I personally read this/these film(s) with this resident Normal [facility] LUMBAR SPINE 4 OR 5 [facility] LUMBAR SPINE 4 OR 5 [facility] Department of Radiology [address] [place] [id number] ======== Patient Name: SUKHDEEP SIMENTAL : 1965 Sex: M Age: Race: White Pt. Location: Patient Status: D Ordered Date: 02/01/2021 1:05:00 PM Completed Date: 02/01/2021 01:12 PM Requesting Provider: JASON MILLER Attending Provider: JASON MILLER Report Copy To: Signs & Symptoms: M54.16 Radiculopathy, lumbar region I10 History: [place] Comments: Views (X-RAY, LUMBAR SPINE): AP, Lateral, [...] Osteopenia. Electronically signed: Ahsan Farmer. Transcribed by: [email or web address], User Resident: Electronically Signed by: AHSAN FARMER @ 02/02/2021 10:14 AM Normal [facility] Comment on above: Order Comment: Views (X-RAY, LUMBAR SPINE): AP, Lateral, L5-S1 Spot, Flexion, Extension C REACTIVE PROTEINon 021 CRP [Mass/Vol] 9.6 mg/L High 0.0-7.0 [facility] Comment on above: Performed By: #### 6 1405 #### [facility] [address] [place] [address], [facility] CBC W/DIFFon 12-15-2020 ABS IMM GRANS 0.1 10*3/uL Normal 0.0-0.2 [facility] Comment on above: Performed By: #### 5 6505, 12755 #### [facility] [address] [place] [address], [facility] ABS NEUTROPHILS 6.1 10*3/uL Normal 1.6-7.6 [facility] Comment on above: Performed By: #### 5 6505, 56421 #### [facility] [address] [place] [address], [place] Basophils (Bld) [#/Vol] 0.1 10*3/uL Normal 0.0-0.2 [facility] Comment on above: Performed By: #### 5 6505, 59736 #### [facility] [address] [place] [address], [place] Basophils/100 WBC (Bld) 0.8 % Normal 0.0-1.0 [facility] Comment on above: Performed By: #### 5 6505, 73115 #### [facility] [address] [place] [address], [place] Eosinophils (Bld) [#/Vol] 0.4 10*3/uL Normal 0.0-0.5 [facility] Comment on above: Performed By: #### 5 6505, 02832 #### [facility] [address] [place] [address], [place] Eosinophils/100 WBC (Bld) 4.1 % Normal 0.0-6.0 [facility] Comment on above: Performed By: #### 5 6505, 79077 #### [facility] [address] [place] [address], [place] Erythrocyte distribution width (RBC) [Ratio] 12.6 % Normal 11.5-15.0 [facility] Comment on above: Performed By: #### 5 6505, 85200 #### [facility] [address] [place] [address], [place] Hematocrit (Bld) [Volume fraction] 40.2 % Normal 39.0-50.0 [facility] Comment on above: Performed By: #### 5 6505, 56772 #### [facility] [address] [place] [address], [facility] Hemoglobin (Bld) [Mass/Vol] 12.6 g/dL Low 13.0-17.0 [facility] Comment on above: Performed By: #### 5 6505, 37076 #### [facility] [address] [place] [address], [facility] IMMATURE GRANS 0.7 % Normal 0.0-1.0 [facility] Comment on above: Performed By: #### 5 6505, 38524 #### [facility] [address] [facility] [place] [address], [facility] Lymphocytes (Bld) [#/Vol] 2.0 10*3/uL Normal 1.2-4.0 [facility] Comment on above: Performed By: #### 5 6505, 53015 #### [facility] [address] [facility] [place] [address], [facility] Lymphocytes/100 WBC (Bld) 20.6 % Normal 20.0-45.0 [facility] Comment on above: Performed By: #### 5 6505, 89439 #### [facility] [address] [facility] [place] [address], [facility] MCH (RBC) [Entitic mass] 30.0 pg Normal 27.0-33.0 [facility] Comment on above: Performed By: #### 5 6505, 61722 #### [facility] [address] [facility] [place] [address], [facility] MCHC (RBC) [Mass/Vol] 31.3 g/dL Low 32.0-35.0 [facility] Comment on above: Performed By: #### 5 6505, 41096 #### [facility] [address] [place] [address], [facility] MCV (RBC) [Entitic vol] 95.7 fL Normal 82.0-98.0 [facility] Comment on above: Performed By: #### 5 6505, 42108 #### [facility] [address] [place] [id number], [facility] Monocytes (Bld) [#/Vol] 1.2 10*3/uL High 0.1-1.0 [facility] Comment on above: Performed By: #### 5 6505, 78336 #### [facility] [address] [place] [id number], [facility] MONOS 11.9 % Normal 5.0-12.0 [facility] Comment on above: Performed By: #### 5 [id number], [id number] #### [facility] [address] [place] [id number], [facility] Neutrophils/100 WBC (Bld) 61.9 % Normal 40.0-72.0 [facility] Comment on above: Performed By: #### 5 6505, [id number] #### [facility] [address] [facility] [place] [id number], [facility] Nucleated RBC/100 WBC (Bld) [Ratio] 0 % Normal 0-0 [facility] Comment on above: Performed By: #### 5 6505, [id number] #### [facility] [address] [place] [id number], [place] PLAT CNT 335 10*3/uL Normal 150-400 [facility] Comment on above: Performed By: #### 5 6505, [id number] #### [facility] [address] [place] [address], [facility] RBC (Bld) [#/Vol] 4.20 10*6/uL Normal 4.20-5.70 [facility] Comment on above: Performed By: #### 5 6505, 84975 #### [facility] [address] WBC (Bld) [#/Vol] 9.86 10*3/uL Normal 4.00-10.60 [facility] Comment on above: Performed By: #### 5 6506, 40578 #### [address] KNEE RIGHT 4 [facility] 1 KNEE RIGHT 4 [facility] Department of Radiology [address] [place] [id number] ======== Patient Name: SUKHDEEP SIMENTAL : 1965 Sex: M Age: Race: White Pt. Location: OUTP Patient Status: D Ordered Date: 12/15/2020 12:25:00 PM Completed Date: 12/15/2020 12:35 PM Requesting Provider: ROBBI PEPE Attending Provider: ROBBI PEPE Report Copy To: Signs & Symptoms: L03.115 cellulitis of rt lower limb History: Comments: evaluate Exam: KNEE RIGHT 4 [facility] ======== KNEE RIGHT 4 [facility] 12/15/2020 12:35 PM CLINICAL INDICATIONS: L03.115 cellulitis [...] osseous abnormality. Small knee joint effusion. Approved by:Eun [email or web address] 8:20 AM. I, Layo Jimenes,have reviewed the image(s) and agree with the findings in this report. Electronically signed: Layo Jimenes. Transcribed by: [email or web address], User Resident: LAYO CORDERO Electronically Signed by: LAYO JIMENES @ 12/16/2020 09:18 AM I personally read this/these film(s) with this resident Normal [facility] Comment on above: Order Comment: evalu ate SEDIMENTATION RATEon 021 SED RATE 77 mm/hr High 0-10 [facility] Comment on above: Performed By: #### 5 6506, 73244 #### [facility] [address] COVID-19 Positive/Negativeon 05-05-2020 COVID-19 Positive/Negative Negative Negative [facility] Comment on above: Reference: NegativeT esting for SARS-CoV-2 by RT-PCRThis test was developed and its performance characteristics determined by [employer] and validated at the [facility]. This test has not been FDA cleared [...] among non-blacks MDRD (S/P/Bld) [Vol rate/Area] mL/min/{1.73_m2} [facility] Otheron 05-05-2020 GFR/1.73 sq M.predicted MDRD (S/P/Bld) [Vol rate/Area] mL/min/{1.73_m2} [facility] Comment on above: GFR estimated refere nce range: According to KDOQI guidelines, <60 ml/min/1.73m2 is sufficient to diagnose a patient with chronic kidney disease. Pharmacy Creatinine Clearance (Chem N/A [facility] Coronavirus 2019 PCR Interp N/A [facility] Serum or plasma calcium yeni urement (mass/volume)on 05-05-2020 Calcium [Mass/Vol] 8.6 mg/dL 8.2-10.2 [facility] Serum or plasma chloride xi surement (moles/volume)on 05-05-2020 Chloride [Moles/Vol] 104 mmol/L 95-114 [facility] Serum or plasma creatinine m easurement with calculation of estimated glomerular filtron 05-05-2020 Creatinine [Mass/Vol] 1.14 mg/dL 0.64-1.27 [facility] Serum or plasma glucose yeni urement (mass/volume)on 05-05-2020 Glucose [Mass/Vol] 178 mg/dL 70-100 [facility] Comment on above: ADA recommended refe rence rangeRandom Glucose Reference Range is dependent on time and content of last meal. Glucose of more than 200 mg/dL in a nonstressed, ambulatory subject supports the diagnosis of Diabetes Mellitus. Serum or plasma potassium me asurement (moles/volume)on 05-05-2020 Potassium [Moles/Vol] 4.0 mmol/L 3.5-5.1 [facility] Serum or plasma sodium measu rement (moles/volume)on 05-05-2020 Sodium [Moles/Vol] 141 mmol/L 136-146 [facility] Serum or plasma total carbon dioxide measurement (moles/volume)on 05-05-2020 CO2 [Moles/Vol] 27.4 mmol/L 22.0-30.0 [facility] Serum or plasma urea nitroge n measurement (mass/volume)on 05-05-2020 Urea nitrogen [Mass/Vol] 18 mg/dL 9-23 [facility] .eGFRon 06-10-2019 eGFR AA >60 Normal >=60 [facility] Comment on above: Result Comment: Resu lt = 0-14.9 mL/min/1.73 m2 Kidney failure or Dialysis Result = 15-29 mL/min/1.73 m2 Severe decrease in GFR Result = 30-59 mL/min/1.73 m2 Moderate decrease in GFR Result >= 60 mL/min/1.73 m2 Normal or increased GFR Performed By: #### E GFR #### [address] [address] eGFR Non-AA >60 Normal >=60 [facility] Comment on above: Result Comment: Resu [...] dosing. Performed By: #### E GFR #### [address] [address] Basic Metabolic Profileon Anion gap [Moles/Vol] 15 mmol/L Normal 7-17 [facility] Comment on above: Performed By: #### C [id number] #### [address] [address] Calcium [Mass/Vol] 9.8 mg/dL Normal 8.5-10.3 [facility] Comment on above: Performed By: #### C [id number] #### [address] [address] Chloride [Moles/Vol] 103 mmol/L Normal 98-110 [facility] Comment on above: Performed By: #### C [id number] #### [address] [address] CO2 [Moles/Vol] 27 mmol/L Normal 22-32 [facility] Comment on above: Performed By: #### C [id number] #### [address] [address] Creatinine [Mass/Vol] 0.98 mg/dL Normal 0.61-1.24 [facility] Comment on above: Performed By: #### C [id number] #### [address] [address] Glucose [Mass/Vol] 198 mg/dL High 70-99 [facility] Comment on above: Performed By: #### C [id number] #### [address] [address] Potassium [Moles/Vol] 4.0 mmol/L Normal 3.4-4.8 [facility] Comment on above: Performed By: #### C [id number] #### [address] [address] Sodium [Moles/Vol] 141 mmol/L Normal 133-142 [facility] Comment on above: Performed By: #### C [id number] #### [address] [address] Urea nitrogen [Mass/Vol] 18 mg/dL Normal 8-26 [facility] Comment on above: Performed By: #### C [id number] #### [address] [address] Urea nitrogen/Creatinine [Mass ratio] 18.4 mg/mg Normal 10.0-20.0 [facility] Comment on above: Performed By: #### C [id number] #### [address] [address] CBCon 06-10-2019 Erythrocyte distribution width (RBC) [Ratio] 13.0 % Normal 11.6-14.8 [facility] Comment on above: Performed By: #### C BCI #### [address] [address] Hematocrit (Bld) [Volume fraction] 46.2 % Normal 41.0-53.0 [facility] Comment on above: Performed By: #### C BCI #### [address] [address] Hemoglobin (Bld) [Mass/Vol] 16.2 g/dL Normal 13.5-17.5 [facility] Comment on above: Performed By: #### C BCI #### [address] [address] MCH (RBC) [Entitic mass] 32.1 pg Normal 27.0-35.0 [facility] Comment on above: Performed By: #### C BCI #### [address] [address] MCHC (RBC) [Mass/Vol] 35.0 % Normal 31.0-37.0 [facility] Comment on above: Performed By: #### C BCI #### [address] [address] MCV (RBC) [Entitic vol] 91.6 fL Normal 80.0-100.0 [facility] Comment on above: Performed By: #### C BCI #### [address] [address] Platelet mean volume (Bld) [Entitic vol] 7.5 fL Normal 6.7-10.6 [facility] Comment on above: Performed By: #### C BCI #### [address] [address] Platelets (Bld) [#/Vol] 263 x10*3/mcL Normal 150-350 [facility] Comment on above: Performed By: #### C BCI #### [address] [address] RBC (Bld) [#/Vol] 5.04 x10*6/mcL Normal 4.30-5.80 [facility] Comment on above: Performed By: #### C BCI #### [address] [address] WBC (Bld) [#/Vol] 9.7 x10*3/mcL Normal 4.5-11.0 [facility] Comment on above: Performed By: #### C BCI #### [address] [address] Hgb A1con 06-10-2019 HbA1c (Bld) [Mass fraction] 134 mg/dL High 68-114 [facility] Comment on above: Result Comment: Math ematical Calc approx. The mean gluc equivalency of A1c Performed By: #### H BA1C #### [address] [address] HbA1c (Bld) [Mass fraction] 6.3 % A1c High 4.0-5.6 [facility] Comment on above: Result Comment: Refe rence Range: 4.0 - 5.6 % Normal 5.7 - 6.4 % Pre-Diabetes > 6.5 % Diabetes Performed By: #### H BA1C #### [address] [address] MRSA, PCRon 06-10-2019 INR Coag (Bld) [Relative time] Negative Normal [facility] Comment on above: Result Comment: The [employer] Xpert MRSA Assay is a qualitative in [...] clinician. Performed By: #### M RSAPC #### [address] [address] PTon 06-10-2019 INR Coag (PPP) [Relative time] 1.0 {INR} Normal <=3.5 [facility] Comment on above: Result Comment: INR has no normal range. INR Therapeutic range is: 2.0-3.0 (AF, CVA, TIAs, DVT prophylaxis, acute DVT) 2.5-3.5 ([facility] heart valves, recurrent thrombosis/emboli) Performed By: #### P TINR #### [address] [address] PT Coag (PPP) [Time] 11.9 s Normal 8.9-11.9 [facility] Comment on above: Performed By: #### P TINR #### [address] [address] PTTon 06-10-2019 aPTT Coag (Bld) [Time] 23.0 s Normal 19.2-27.8 [facility] Comment on above: Performed By: #### P TT #### [address] [address] XR Chest 2 Viewson 0 XR Chest [...] Electronically Signed in Other Vendor System) Normal [facility] XR LUMBAR SPINE (2-3 VIEWS)o n [...] Juwan Kumar MD 04/16/19 Final result Normal [facility] Limited range of motion without evidence of instability. Multilevel disc degeneration. [place], [place] EXAMINATION: 2 XRAY VIEWS OF THE LUMBAR SPINE 04/16/2019 10:21 am COMPARISON: None. HISTORY: ORDERING SYSTEM PROVIDED HISTORY: Injury Back pain after fall. FINDINGS: Lateral flexion extension views of the lumbar spine. With extension, no instability. Range of motion is reduced. With flexion, no substantial interval movement. No pathologic malalignment. Diffuse disc degeneration greatest in the lower lumbar spine. Spinous processes appear intact. [facility] Josafat, Mhpn Incoming Radiant Results From [employer] - 04/16/2019 11:16 AM EST EXAMINATION: 2 [...] without evidence of instability. Multilevel disc degeneration. [facility] LUMBAR SPINE WO CONTRASTo n 04-11-2019 [...] Ahsan Guidry MD 04/11/19 Final result Normal [facility] XR PELVIS (1-2 VIEWS)on 03-28 XR PELVIS [...] Ahsan Guidry MD 04/11/19 Final result Normal [facility] No acute findings. [employer] Phone: EXAMINATION: ONE XRA Y VIEW OF THE PELVIS 04/11/2019 1:24 pm COMPARISON: None. HISTORY: ORDERING SYSTEM PROVIDED HISTORY: fall right buttock pain TECHNOLOGIST PROVIDED HISTORY: fall right buttock pain Reason for Exam: fall buttocks pain Acuity: Acute Type of Exam: Initial FINDINGS: No acute fracture. No widening of the sacroiliac joints. Degenerative changes within the lower lumbar spine. Mild bilateral hip osteoarthritis. [employer] Phone: Josafat, [employer] Incoming Radiant Results From [employer] - 04/11/2019 2:02 PM EST EXAMINATION: ONE [...] bilateral hip osteoarthritis. IMPRESSION: No acute findings. [employer] Work Phone: Vital Signs Date Time Vital Sign Value Performing Clinician Facility 02-13-2024 11:22-0500 Body mass index (BMI) [Ratio] 38.99 kg/m2 Ahsan Nienberg PA Work Phone: [facility] 02-13-2024 11:22-0500 Body weight 119.75 kg Ahsan Nienberg PA Work Phone: [facility] [employer] [facility] 02-13-2024 11:22-0500 Diastolic blood pressure 100 mm[Hg] Ahsan Nienberg PA Work Phone: [facility] 02-13-2024 11:22-0500 Heart rate 92 /min Ahsan Nienberg PA Work Phone: [facility] 02-13-2024 11:22-0500 Respiratory rate 18 /min Ahsan Nienberg PA Work Phone: [facility] 02-13-2024 11:22-0500 Systolic blood pressure 150 mm[Hg] Ahsan Nienberg PA Work Phone: [facility] 12-05-2023 10:05-0400 Body height 175.3 cm Ahsan Nienberg PA Work Phone: [facility] [employer] [facility] 12-05-2023 10:05-0400 Body mass index (BMI) [Ratio] 39.28 kg/m2 Ahsan Nienberg PA Work Phone: [facility] [employer] [facility] 12-05-2023 10:05-0400 Body weight 120.66 kg Ahsan Nienberg PA Work Phone: [facility] [employer] [facility] 12-05-2023 10:05-0400 Diastolic blood pressure 90 mm[Hg] Ahsan Nienberg PA Work Phone: [facility] [employer] [facility] 12-05-2023 10:05-0400 Heart rate 91 /min Ahsan Nienberg PA Work Phone: [facility] 12-05-2023 10:05-0400 Respiratory rate 16 /min Ahsan Flynn PA Work Phone: [facility] 12-05-2023 10:05-0400 SaO2% (BldA) [Mass fraction] 95 % Ahsan NOVAK Work Phone: [facility] 12-05-2023 10:05-0400 Systolic blood pressure 131 mm[Hg] Ahsan NOVAK Work Phone: [facility] 11-07-2023 11:09-0400 Body height 175.26 cm [facility] 11-07-2023 11:09-0400 Body mass index (BMI) [Ratio] 39 kg/m2 [facility] 11-07-2023 11:09-0400 Body temperature 97.4 [degF] [facility] 11-07-2023 11:09-0400 Body weight 119.86 kg [facility] 11-07-2023 11:09-0400 Diastolic blood pressure 85 mm[Hg] [facility] 11-07-2023 11:09-0400 Heart rate 88 /min [facility] 11-07-2023 11:09-0400 Respiratory rate 18 /min [facility] 11-07-2023 11:09-0400 SaO2% (BldA) [Mass fraction] 98 % [facility] 11-07-2023 11:09-0400 Systolic blood pressure 123 mm[Hg] [facility] 08-15-2023 11:27-0400 Diastolic blood pressure 84 mm[Hg] Ahsan NOVAK Work Phone: [facility] 08-15-2023 11:27-0400 Heart rate 110 /min Ahsan Flynn PA Work Phone: [facility] 08-15-2023 11:27-0400 Respiratory rate 20 /min Ahsan Flynn PA Work Phone: [facility] 08-15-2023 11:27-0400 Systolic blood pressure 126 mm[Hg] Ahsan Flynn PA Work Phone: [facility] [employer] [facility] 02-14-2023 11:12-0500 Body height 175.3 cm Ahsan Flynn PA Work Phone: [facility] 02-14-2023 11:12-0500 Body mass index (BMI) [Ratio] 39.43 kg/m2 Ahsan Flynn PA Work Phone: [facility] 02-14-2023 11:12-0500 Body weight 121.11 kg Ahsan Flynn PA Work Phone: [facility] 02-14-2023 11:12-0500 Diastolic blood pressure 94 mm[Hg] Ahsan Flynn PA Work Phone: [facility] 02-14-2023 11:12-0500 Heart rate 89 /min Ahsan Flynn PA Work Phone: [facility] 02-14-2023 11:12-0500 Respiratory rate 18 /min Ahsan Fylnn PA Work Phone: [facility] [employer] [facility] 02-14-2023 11:12-0500 SaO2% (BldA) [Mass fraction] 98 % Ahsan Flynn PA Work Phone: [facility] 02-14-2023 11:12-0500 Systolic blood pressure 143 mm[Hg] Ahsan Flynn PA Work Phone: [facility] 02-07-2023 14:37-0500 Body temperature 98.6 [degF] Riddhi Goss INSPECTOR [employer] Work Phone: [facility] 02-07-2023 14:37-0500 Body weight 122.92 kg Riddhi Goss INSPECTOR [employer] Work Phone: [facility] 02-07-2023 14:37-0500 Diastolic blood pressure 80 mm[Hg] Riddhi Goss INSPECTOR [employer] Work Phone: [facility] 02-07-2023 14:37-0500 Heart rate 79 /min Riddhi Goss INSPECTOR [employer] Work Phone: [facility] 02-07-2023 14:37-0500 SaO2% (BldA) [Mass fraction] 98 % Riddhi Goss INSPECTOR [employer] Work Phone: [facility] 02-07-2023 14:37-0500 Systolic blood pressure 157 mm[Hg] Riddhi Goss INSPECTOR [employer] Work Phone: [facility] 02-04-2023 09:16-0500 Blood Pressure Location Cecelia MURILLO [facility] 02-04-2023 09:16-0500 Diastolic blood pressure 88 mm[Hg] Cecelia MURILLO [facility] 02-04-2023 09:16-0500 Heart rate 79 /min Cecelia MURILLO [facility] 02-04-2023 09:16-0500 Respiratory rate 16 /min Cecelia MURILLO [facility] 02-04-2023 09:16-0500 Systolic blood pressure 139 mm[Hg] Cecelia MURILLO [facility] 12-20-2022 14:26-0400 Body height 175.3 cm Singh Morgan PA-C Work Phone: [facility] 12-20-2022 14:26-0400 Body weight 123.11 kg Singh Morgan PA-C Work Phone: [facility] 12-20-2022 14:26-0400 Diastolic blood pressure 84 mm[Hg] Singh Morgan PA-C Work Phone: [facility] 12-20-2022 14:26-0400 Heart rate 76 /min Singh Morgan PA-C Work Phone: [facility] 12-20-2022 14:26-0400 SaO2% (BldA) [Mass fraction] 97 % Singh Morgan PA-C Work Phone: [facility] 12-20-2022 14:26-0400 Systolic blood pressure 165 mm[Hg] Singh Morgan PA-C Work Phone: [facility] 12-06-2022 15:00-0400 Body height 175.26 cm Oumou Reji Other [employer] Other 12-06-2022 15:00-0400 Body mass index (BMI) [Ratio] 39.9 kg/m2 Oumou Reji Other [employer] Other 12-06-2022 15:00-0400 Body temperature 98.1 [degF] Oumou Reji Other [employer] Other 12-06-2022 15:00-0400 Body weight 122.56 kg Oumou Reji Other [employer] Other 12-06-2022 15:00-0400 Diastolic blood pressure 81 mm[Hg] Oumou Reji Other [employer] Other 12-06-2022 15:00-0400 Respiratory rate 20 /min Oumou Reji Other [employer] Other 12-06-2022 15:00-0400 SaO2% (BldA) [Mass fraction] 97 % Oumou Reji Other [employer] Other 12-06-2022 15:00-0400 Systolic blood pressure 127 mm[Hg] Oumou Reji Other [employer] Other 11-05-2022 14:17-0400 Body height 175.3 cm Thomas Mathew MD Work Phone: [facility] 11-05-2022 14:17-0400 Body weight 123.97 kg Thomas Mathew MD Work Phone: [facility] 11-05-2022 14:17-0400 Diastolic blood pressure 84 mm[Hg] Thomas Mathew MD Work Phone: [facility] 11-05-2022 14:17-0400 Heart rate 66 /min Thomas Mathew MD Work Phone: [facility] 11-05-2022 14:17-0400 SaO2% (BldA) [Mass fraction] 100 % Thomas Mathew MD Work Phone: [facility] 11-05-2022 14:17-0400 Systolic blood pressure 156 mm[Hg] Thomas Mathew MD Work Phone: [facility] 10-17-2022 15:41-0400 Blood Pressure Location Maite SQUIRES [facility] 10-17-2022 15:41-0400 Diastolic blood pressure 84 mm[Hg] Maite SQUIR[facility] 10-17-2022 15:41-0400 Heart rate 70 /min Maite SQUIRES [facility] 10-17-2022 15:41-0400 Respiratory rate 16 /min Maite SQUIRES [facility] 10-17-2022 15:41-0400 Systolic blood pressure 118 mm[Hg] Maite RICKL [facility] 06-21-2022 10:20-0400 Body height 175.26 cm Oumouyesenia Weinstein Other [employer] Other 06-21-2022 10:20-0400 Body mass index (BMI) [Ratio] 40.02 kg/m2 Oumou Reji Other [employer] Other 06-21-2022 10:20-0400 Body temperature 97.6 [degF] Oumou Reji Other [employer] Other 06-21-2022 10:20-0400 Body weight 122.93 kg Oumou Reji Other [employer] Other 06-21-2022 10:20-0400 Diastolic blood pressure 80 mm[Hg] Oumou Reji Other [employer] Other 06-21-2022 10:20-0400 Respiratory rate 20 /min Oumou Reji Other [employer] Other 06-21-2022 10:20-0400 SaO2% (BldA) [Mass fraction] 97 % Oumou Reji Other [employer] Other 06-21-2022 10:20-0400 Systolic blood pressure 114 mm[Hg] Oumou Reji Other [employer] Other 03-19-2022 09:48-0500 Blood Pressure Location Cecelia LIDIA [facility] 03-19-2022 09:48-0500 Diastolic blood pressure 88 mm[Hg] Cecelia MURILLO [facility] 03-19-2022 09:48-0500 Heart rate 78 /min Cecelia MURILLO [facility] 03-19-2022 09:48-0500 Respiratory rate 16 /min Cecelia MURILLO [facility] 03-19-2022 09:48-0500 Systolic blood pressure 139 mm[Hg] Cecelia MURILLO [facility] 01-11-2022 11:15-0500 Body temperature 98.1 [degF] PHYSICIAN NO [facility] 01-11-2022 11:15-0500 Diastolic blood pressure 88 mm[Hg] PHYSICIAN NO [facility] 01-11-2022 11:15-0500 Heart rate 79 /min PHYSICIAN NO [facility] 01-11-2022 11:15-0500 Respiratory rate 18 /min PHYSICIAN NO [facility] 01-11-2022 11:15-0500 SaO2% (BldA) [Mass fraction] 96 % PHYSICIAN NO [facility] 01-11-2022 11:15-0500 Systolic blood pressure 137 mm[Hg] PHYSICIAN NO [facility] 12-15-2021 12:20-0400 Body height 175.26 cm Estephanie Lowry Other [facility] [employer] Other 12-15-2021 12:20-0400 Body mass index (BMI) [Ratio] 41.49 kg/m2 Estephanie Lowry Other [facility] [employer] Other 12-15-2021 12:20-0400 Body temperature 98.6 [degF] Estephanie Lowry Other [employer] Other 12-15-2021 12:20-0400 Body weight 127.46 kg Estephanie Lowry Other [employer] Other 12-15-2021 12:20-0400 Diastolic blood pressure 96 mm[Hg] Estephanie Lowry Other [employer] Other 12-15-2021 12:20-0400 Respiratory rate 18 /min Estephanie Hammondmond Other [employer] Other 12-15-2021 12:20-0400 SaO2% (BldA) [Mass fraction] 97 % Estephanie Lowry Other [employer] Other 12-15-2021 12:20-0400 Systolic blood pressure 132 mm[Hg] Estephanie Lowry Other [employer] Other 10-25-2021 14:00-0400 Body height 175.26 cm Oumou Reji Other [employer] Other 10-25-2021 14:00-0400 Body mass index (BMI) [Ratio] 42.02 kg/m2 Oumou Reji Other [employer] Other 10-25-2021 14:00-0400 Body temperature 96.8 [degF] Oumou Reji Other [employer] Other 10-25-2021 14:00-0400 Body weight 129.09 kg Oumou Reji Other [employer] Other 10-25-2021 14:00-0400 Diastolic blood pressure 69 mm[Hg] Oumou Reji Other [employer] Other 10-25-2021 14:00-0400 Respiratory rate 20 /min Oumou Reji Other [employer] Other 10-25-2021 14:00-0400 SaO2% (BldA) [Mass fraction] 98 % Oumou Reji Other [employer] Other 10-25-2021 14:00-0400 Systolic blood pressure 109 mm[Hg] Oumou Reji Other [employer] Other 05-26-2021 10:45-0400 Body temperature 98.8 [degF] Octavio Mcclellan [employer] Work Phone: [employer] 05-26-2021 10:45-0400 Respiratory rate 18 /min Octavio Mcclellan [employer] Work Phone: [employer] 05-26-2021 10:45-0400 SaO2% (BldA) [Mass fraction] 98 % Octavio Mcclellan [employer] Work Phone: [employer] 05-26-2021 07:30-0400 Heart rate 105 /min Octavio Mcclellan [employer] Work Phone: [employer] 05-25-2021 23:20-0400 Diastolic blood pressure 85 mm[Hg] Octavio Mcclellan [employer] Work Phone: [employer] 05-25-2021 23:20-0400 Systolic blood pressure 130 mm[Hg] Octavio Mcclellan [employer] Work Phone: [employer] 05-24-2021 10:15-0400 Body height 175.3 cm Octavio Mcclellan [employer] Work Phone: [employer] 05-24-2021 10:15-0400 Body mass index (BMI) [Ratio] 50.65 kg/m2 Octavio Mcclellan [employer] Work Phone: [employer] 05-24-2021 10:15-0400 Body weight 155.58 kg Octavio Mcclellan [employer] Work Phone: [employer] 05-08-2021 11:04-0400 Body height 175.[address] [employer] 05-08-2021 11:04-0400 Body mass index (BMI) [Ratio] 51.98 kg/m2 St 2 [employer] 05-08-2021 11:04-0400 Body temperature 97.3 [degF] [facility] 11:04-0400 Body weight 159.[address] [employer] 05-08-2021 11:04-0400 Diastolic blood pressure 83 mm[Hg] [address] [employer] 05-08-2021 11:04-0400 Heart rate 126 /min [address] [employer] 05-08-2021 11:04-0400 Respiratory rate 20 /min [address] [employer] 05-08-2021 11:04-0400 SaO2% (BldA) [Mass fraction] 95 % [address] [employer] 05-08-2021 11:04-0400 Systolic blood pressure 121 mm[Hg] [address] [employer] 01-08-2020 14:04-0500 BMI (Body Mass Index) 47.99 kg/m2 [facility] 01-08-2020 14:04-0500 Body Temperature 96.69 [degF] [facility] [employer] [facility] 01-08-2020 14:04-0500 Body weight 147.42 kg [facility] [employer] [facility] 01-08-2020 14:04-0500 Height 175.3 cm [facility] [employer] [facility] 04-11-2019 12:42-0500 BMI (Body Mass Index) 44.3 kg/m2 [employer] Work Phone: 04-11-2019 12:42-0500 Body Temperature 97.39 [degF] [employer] Work Phone: 04-11-2019 12:42-0500 Body weight 136.08 kg [employer] Work Phone: 04-11-2019 12:42-0500 BP Diastolic 98 mm[Hg] [employer] Work Phone: 04-11-2019 12:42-0500 BP Systolic 196 mm[Hg] [employer] Work Phone: 04-11-2019 12:42-0500 Height 175.3 cm Suzanne Nepris Phone: 04-11-2019 12:42-0500 Pulse (Heart Rate) 72 /min Suzanne Nepris Phone: 04-11-2019 12:42-0500 Pulse Oximetry 96 % [employer] Phone: 04-11-2019 12:42-0500 Respiratory Rate 16 /min Suzanne Cytheris Work Phone: Encounters Encounter Date Encounter Type Care Provider Facility Start: 08-13-2025 ambulatory Cecelia MURILLO [facility] ty: Laura Start: 08-07-2024 End: 08-07-2024 ambulatory Cecelia MURILLO Facility[facility] Start: 08-07-2024 End: 08-07-2024 Patient encounter procedure [facility] Start: 06-22-2024 End: 06-22-2024 ambulatory Cecelia MURILLO Facility:[facility] Start: 06-17-2024 End: 06-17-2024 ambulatory [facility] Start: 05-18-2024 ambulatory [facility] Start: 05-18-2024 End: 05-18-2024 ambulatory [facility] Start: 04-10-2024 End: 04-21-2024 Telephone encounter Cherelle Oleary RN [facility] Start: 03-03-2024 End: 03-04-2024 Telephone encounter Cherelle Oleary RN [facility] Start: 02-13-2024 End: 02-13-2024 ambulatory AHSAN FLYNN [facility] Start: 02-13-2024 End: 02-13-2024 Office outpatient visit 15 minutes Ahsan Flynn PA Work Phone: [facility] Comment on above: Spinal stenosis, lum bar region, with neurogenic claudication (Primary Dx) Start: 02-03-2024 End: 02-03-2024 ambulatory Cecelia MURILLO Facility:[facility] Start: 02-03-2024 End: 02-03-2024 Patient encounter procedure Cecelia MURILLO [facility] Start: 12-05-2023 End: 12-05-2023 ambulatory [facility] Start: 12-05-2023 End: 12-05-2023 Office outpatient visit 15 minutes Ahsan NOVAK Work Phone: [facility] Comment on above: Spinal stenosis, lum bar region, with neurogenic claudication (Primary Dx) Start: 11-07-2023 End: 11-07-[address] [facility] Work Phone: Start: 11-07-2023 End: 11-07-2023 Patient encounter procedure [facility] Physician [facility] Ne[facility] Work Phone: Start: 10-29-2023 Non-patient / Non-visit [facility] Physician [facility] Work Phone: Start: 10-07-2023 End: 06-25-2024 Telephone encounter Thomas Mathew MD Work Phone: Neurology Comment on above: Appointment Start: 10-04-2023 Telephone encounter Thomas crabtree MD Work Phone: Neurology Comment on above: Results Start: 08-15-2023 End: 08-15-2023 Office outpatient visit 15 minutes Ahsan NOVAK Work Phone: [facility] Comment on above: Spinal stenosis, lum bar region, with neurogenic claudication (Primary Dx) Start: 08-15-2023 End: 08-15-2023 ambulatory [facility] Start: 07-30-2023 Telephone encounter Thomas crabtree MD Work Phone: Neurology Comment on above: Appointment; Orders Start: 07-23-2023 Telephone encounter Thomas crabtree MD Work Phone: Neurology Start: 05-08-2023 End: 05-08-2023 ambulatory Thomas Mathew MD Work Phone: Neurosurgery Comment on above: Radiculopathy, lumba r region (Primary Dx) Start: 05-08-2023 End: 05-08-2023 Telemedicine consultation with patient Thomas Mathew MD Work Phone: [facility] Start: 05-08-2023 Telephone encounter Cherelle Oleary RN [facility] Start: 05-07-2023 Telephone encounter Cherelle Oleary RN [facility] Start: 04-16-2023 Telephone encounter Thomas crabtree MD Work Phone: Neurology Comment on above: Imaging Disc Start: 04-10-2023 Telephone encounter Thomas crabtree MD Work Phone: Neurology Comment on above: PT Certification Start: 04-09-2023 Telephone encounter Thomas crabtree MD Work Phone: Neurology Start: 02-14-2023 End: 02-14-2023 Office outpatient visit 15 minutes Ahsan NOVAK Work Phone: [facility] Comment on above: Spinal stenosis, lum bar region, with neurogenic claudication (Primary Dx) Start: 02-07-2023 End: 02-07-2023 Patient encounter procedure 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 Goss 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 OPEN DIE.1ST [employer] Work Phone: Neurosurgery Comment on above: 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) Start: 02-07-2023 Telephone encounter Thomas crabtree MD Work Phone: Neurosurgery Start: 02-04-2023 End: 02-04-2023 Patient encounter procedure Cecelia Jj LIDIA [facility] Start: 01-23-2023 Telephone encounter Thomas crabtree MD Work Phone: Neurology Comment on above: Received Outside Med ical Records ([facility]) Start: 12-21-2022 Telephone encounter Thomas crabtree MD Work Phone: Neurology Comment on above: Medication Problem Start: 12-20-2022 End: 12-20-2022 Patient encounter procedure Singh Morgan PA-C Work Phone: Neurosurgery Comment on above: 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) Start: 12-18-2022 Telephone encounter Blayne Isabel MD Work Phone: NOC Comment on above: Opened In Error Start: 12-14-2022 Telephone encounter Thomas crabtree MD Work Phone: Neurology Comment on above: FMLA Paperwork Start: 12-13-2022 Telephone encounter Thomas crabtree MD Work Phone: Neurosurgery Comment on above: post op update Start: 12-12-2022 Telephone encounter Brittany gaming PA-C Work Phone: Neurology Comment on above: Medication Problem Start: 12-07-2022 End: 12-11-2022 Evaluation and management of inpatient THOMAS MATHEW Facility:[facility] Start: 12-06-2022 End: 12-06-2022 ambulatory Oumou Weinstein Other [employer] Other Start: 12-06-2022 Office outpatient vi sit 25 minutes Oumou Weinstein [facility] Start: 11-21-2022 End: 11-21-2022 ambulatory MAITE GALLOWAY Facility:[facility] Start: 11-21-2022 End: 11-21-2022 ambulatory BLAYNE ISABEL Facility:[facility] Start: 11-21-2022 End: 11-21-2022 ambulatory BLAYNE ISABEL Facility:[facility] Start: 11-21-2022 Encounter for other preprocedural examination BLAYNE ISABEL [facility] Start: 11-05-2022 End: 11-05-2022 Patient encounter procedure Thomas Mathew MD Work Phone: Neurosurgery Comment on above: 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 Facility:[facility] Start: 06-21-2022 End: 06-21-2022 ambulatory Oumou Reji Other [employer] Other Start: 06-21-2022 Office outpatient vi sit 25 minutes Oumou Reji [facility] Start: 06-11-2022 End: 06-12-2022 ambulatory OUMOU REJI Facility:[facility] Start: 04-03-2022 End: 04-03-2022 ambulatory Oumou Reji Other [employer] Other Start: 04-03-2022 Telephone encounter Oumou Reji [facility] Start: 03-20-2022 Encounter for preprocedural laboratory examination DR DOCTOR MILES [facility] Start: 03-19-2022 End: 03-19-2022 Patient encounter procedure Cecelia MURILLO [facility] Start: 03-15-2022 End: 03-16-[address] DOCTOR MILES Facility:[facility] Start: 03-15-2022 End: 03-16-2022 Encounter for preprocedural laboratory examination DR DOCTOR MILES Facility:[facility] Start: 03-12-2022 End: 03-13-[address] CECELIA MURILLO . Facility:[facility] Start: 03-08-2022 End: 03-09-[address] DOCTOR MILES Facility:[facility] Start: 01-27-2022 Encounter for genera l adult medical examination without abnormal findings DR BLAYNE ISABEL . [facility] Start: 01-24-2022 End: 01-25-[address] BLAYNE ISABEL . Facility:[facility] Start: 01-24-2022 End: 01-25-2022 Encounter for general adult medical examination without abnormal findings DR BLAYNE ISABEL . Facility:[facility] Start: 01-22-2022 End: 01-22-2022 ambulatory Oumou Reji Other [employer] Other Start: 01-22-2022 Telephone encounter Oumou Reji [facility] Start: 01-11-2022 End: 01-11-2022 ambulatory PHYSICIAN NO FAMILY Facility:[facility] Start: 01-11-2022 End: 01-11-2022 ambulatory PHYSICIAN NO [facility] Work Phone: Start: 01-11-2022 End: 01-11-2022 Discharged Recurring PHYSICIAN NO [facility]-Infusion Therapy - O/P Start: 01-10-2022 End: 01-10-2022 ambulatory Oumou Reji Other [employer] Other Start: 01-10-2022 Telephone encounter Oumou Reji [facility] Start: 01-02-2022 End: 01-02-2022 ambulatory Oumou Reji Other [employer] Other Start: 01-02-2022 Telephone encounter Oumou Reji [facility] Start: 01-01-2022 End: 01-01-2022 ambulatory Oumou Reji Other [employer] Other Start: 01-01-2022 Telephone encounter Oumou Reji [facility] Start: 12-21-2021 End: 12-22-[address] BLAYNE ISABEL . 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 Facility:[facility] Start: 10-31-2021 End: 11-01-[address] BLAYNE ISABEL . Facility:[facility] Start: 10-25-2021 End: 10-25-2021 ambulatory Oumou Reji Other [employer] Other Start: 10-25-2021 Office outpatient ne w 45 minutes Oumou Reji [facility] Start: 10-18-2021 End: 10-19-[address] BLAYNE ISABEL . Facility:[facility] Start: 10-17-2021 Encounter for other specified [facility] Start: 10-17-2021 Encounter for preproced[facility] Start: 10-16-2021 End: 10-17-[address] BLAYNE ISABEL . Facility:[facility] Start: 10-16-2021 End: 10-17-2021 Encounter for other specified special examinations DR DOCTOR MILES Facility:[facility] Start: 10-13-2021 End: 10-21-2021 ambulatory PHYSICIAN BRADFORD Facility:[facility] Start: 10-10-2021 End: 10-11-[address] BLAYNE ISABEL . Facility:[facility] Start: 10-06-2021 End: 10-07-[address] DOCTOR MILES Facility:[facility] Start: 09-25-2021 End: 09-26-[address] BLAYNE ISABEL . Facility:[facility] Start: 09-05-2021 End: 09-06-[address] DOCTOR MILES Facility:[facility] Start: 08-25-2021 End: 08-26-[address] BLAYNE ISABEL . Facility:[facility] Start: 08-18-2021 End: 08-18-2021 ambulatory LEISA PERRY Facility:[facility] Start: 08-09-2021 End: 08-09-[address] BLAYNE ISABEL . Facility:[facility] Start: 08-08-2021 End: 08-09-[address] DOCTOR MILES Facility:[facility] Start: 07-16-2021 End: 07-18-2021 Evaluation and management of inpatient LEISA PERRY [facility] Start: 05-24-2021 End: 05-26-2021 ambulatory OCTAVIO Jj [facility] Start: 05-24-2021 End: 05-26-2021 Subsequent hospital visit by physician Octavio Mcclellan DO Work Phone: [facility] Ortho/Med Surg Comment on above: S/P laparoscopic sle may gastrectomy (Primary Dx) Start: 05-08-2021 End: 05-08-2021 Subsequent hospital visit by physician Twyla Pat 2 [facility] Pre-Admit Testing Comment on above: Canceled (Other) Start: 05-08-2021 End: 05-11-2021 ambulatory OCTAVIO MCCLELLAN [facility] Start: 05-08-2021 End: 05-13-2021 ambulatory OCTAVIO Jj [facility] Start: 05-08-2021 End: 05-10-2021 Patient encounter status Stv Xr [facility] Start: 05-08-2021 End: 05-10-2021 Subsequent hospital visit by physician Glory Mccracken Xr [facility] Rad[facility] Comment on above: Pre-op chest exam Start: 05-08-2021 End: 05-12-2021 Subsequent hospital visit by physician Twyla Mccracken Rm 2 [facility] Pre-Admit Testing Start: 05-05-2020 End: 05-05-2020 Patient encounter procedure Blayne Bañuelosy -Pre-Surgical Testing Start: 02-04-2020 End: 02-04-2020 Subsequent hospital visit by physician Suzanne Pruett Work Phone: [facility] Echocardiography Comment on above: Arrived Start: 01-08-2020 End: 01-08-2020 Subsequent hospital visit by physician Alexandro Muhammad Work Phone: [facility] Radiology Start: 01-08-2020 End: 01-08-2020 Office outpatient new 30 minutes Alexandro Muhammad Work Phone: [facility] Orthopedics Comment on above: Fluid retention in l egs (Primary Dx) Start: 06-10-2019 End: 06-11-2019 Patient encounter procedure [facility] Facility:[facility] Start: 04-16-2019 End: 04-19-2019 Patient encounter procedure ARSENIO BHATTI [facility] Start: 04-16-2019 End: 04-18-2019 Subsequent hospital visit by physician Nelson Xr Room 4 [facility] Comment on above: Injury Start: 04-11-2019 End: 04-11-2019 Emergency department patient visit [facility] Start: 04-11-2019 End: 04-11-2019 Emergency department patient visit [facility] Work Phone: [facility] ED Comment on above: Acute bilateral low back pain with right-sided sciatica (Primary Dx); Traumatic buttock pain Procedures Date Procedure Procedure Detail Performing Clinician Start: 11-21-2022 Antibody screen BLAYNE ISABEL Comment on above: Order Comment: Speci men Type: BLOOD SPECIMENOrdering Facility: [facility] Address: [address] [place], [place] [id number] Performed By: #### T [id number] ####CC MAIN BLOOD BANKCLIA [id number] [facility] [id number] [place], [place] [id number] [place] Start: 02-25-2022 Arthroplasty of knee Pa hiram MURILLO Start: 02-25-2022 Lumbar spinal fusion Pa zelalemvarghese MURILLO Start: 01-24-[address] SHERRI MURILLO . Comment on above: Performed By: #### P TT #### [facility] [address] [place] [address] Dr. Hugh Landis Start: 07-13-2021 Cystoscopic removal [...] Start: 05-08-2021 Assay of nicotine Ever Mcclellan [employer] Work Phone: Start: 05-08-2021 Basic metabolic pane l calcium total Octavio Mcclellan DO Work Phone: Start: 05-08-2021 Ecg routine ecg w/le ast 12 lds trcg only w/o i&r Octavio Mcclellan DO Work Phone: Start: 04-25-2021 Gastric sleeve Maite SQUIRES Start: 04-25-2021 Procedure on stomach Pa hiram MURILLO Start: 03-28-2020 Cystoscopy Cecelia PICKETT Start: 02-24-2020 Extracorporeal shock wave lithotripsy of ureter Cecelia MURILLO Start: 04-16-2019 Radex spine lumbosac ral 2/3 views SUZANNE ACEVEDO Start: 04-16-2019 Radex spine lumbosac ral 2/3 views Arsenio Bhatti Work Phone: Start: 04-11-2019 Ct lumbar spine w/o contrast material SUZANNE ACEVEDO Start: 04-11-2019 Radiologic examinati on pelvis 1/2 views SUZANNE ACEVEDO Start: 04-11-2019 Ct lumbar spine w/o contrast material Cecilia Reyes Work Phone: Start: 04-11-2019 Radiologic examinati on pelvis 1/2 views Cecilia Reyes Work Phone: Start: 12-18-2017 Colonoscopy Maite BUSH PIPE Start: 05-25-2016 cysto rt retrograde rt ureteroscopy rt holmium laser lithotripsy rt j stent with string Cecelia MURILLO Ankle joint operations Daly MURILLO Bilateral replacemen t of knee joints Cecelia MURILLO Chondrectomy of semi lunar cartilage of knee Maite RICKKelly Cystoscopy Cecelia MURILLO Lumbar spinal fusion Cecelia MURILLO Urine culture PHYSICIAN TOM BUSBY Plan of Treatment Date Care Activity Detail Author Start: 01-24-2027 Prostate Cancer Screening Discussion Prostate Cancer Screening Discussion [facility] Start: 01-24-2027 Prostate specific antigen measurement Prostate Cancer Screening Discussion [facility] Start: 02-12-2025 Adult BMI Screening Adult BMI Screening [facility] Start: 02-12-2025 Tobacco Screening Tobacco Screening [facility] Start: 12-04-2024 Adult BMI Screening Adult BMI Screening [facility] Start: 12-04-2024 Tobacco Screening Tobacco Screening [facility] Start: 10-26-2024 Influenza vaccination Influenza Vaccine (Season Ended) [facility] Start: 08-14-2024 Tobacco Screening Tobacco Screening [facility] Start: 02-15-2024 Adult BMI Screening Adult BMI Screening [facility] Start: 02-15-2024 Tobacco Screening Tobacco Screening [facility] Start: 02-13-2024 End: 02-13-2024 Patient encounter procedure 02/13/2024 10:45 AM EST Office Visit [facility] [address] [place] [address] Ahsan Flynn, PA [address] [place] [address] [facility] Pain Management [facility] Start: 12-12-2023 Creatinine measurement Serum Creatinine [facility] Start: 12-12-2023 Serum Creatinine Serum Creatinine [facility] Start: 10-27-2023 Covid-19 Vaccine () Covid-19 Vaccine ( season) [facility] Start: 10-27-2023 Influenza vaccination [facility] Start: 10-07-2023 End: 10-07-2023 Follow-up encounter Neurosurgery Comment on above: FOLLOW UP Start: 2023 RSV Vaccine (1 - 1-dose 60+ series) RSV Vaccine (1 - 1-dose 60+ series) [facility] Start: 2023 RSV Vaccine (1 - Risk 60-74 years 1-dose series) RSV Vaccine (1 - Risk 60-74 years 1-dose series) [facility] Start: 08-15-2023 End: 08-15-2023 Patient encounter procedure 08/15/2023 11:15 AM EDT Office Visit [facility] Pain Management [facility] [address] [place] [id number] Ahsan Flynn PA [address] [place] [address] [facility] Pain [facility] Start: 05-22-2023 Hemoglobin A1c measurement HbA1C [facility] Start: 05-22-2023 Hemoglobin A1c/Hemoglobin.total in Blood HbA1C [facility] Start: 02-25-2023 Behavioral Health Screening Behavioral Health Screening [facility] Start: 02-25-2023 Depression Assessment Depression Assessment [facility] Start: 01-20-2023 End: 01-19-2024 Radex spine lumbosacral 2/3 views XR LUMBAR LIMITED 2V AP/LAT Radiology Routine Lumbar adjacent segment disease with spondylolisthesis Expected: 01/20/2023, Expires: 01/19/2024 [facility] Work Phone: Comment on above: Expected: 01/20/2023, Expires: Start: 10-26-2022 Covid-19 Vaccine ( season) Covid-19 Vaccine ( season) [facility] Start: 10-26-2022 Influenza vaccination [facility] Start: 05-25-2022 Creatinine measurement Creatinine monitoring [facility] Start: 05-25-2022 Potassium monitoring Potassium monitoring [facility] Start: 05-08-2022 Creatinine measurement Creatinine monitoring [facility] Start: 05-08-2022 Potassium monitoring Potassium monitoring [facility] Start: 02-25-2022 DEPRESSION ASSESSMENT DEPRESSION ASSESSMENT [facility] Start: 01-03-2022 Hemoglobin A1c measurement A1C test (Diabetic or Prediabetic) [facility] Start: 01-03-2022 Lipid panel Lipid screen [facility] Start: 10-26-2021 Influenza vaccination Flu vaccine (Season Ended) [facility] Start: 06-06-2021 End: 06-06-2021 Patient encounter procedure 06/06/2021 Office Visit Oncology Spencer Guy MD [address] [place] [address] [facility] Start: 06-02-2021 End: 06-02-2021 Patient encounter procedure 06/02/2021 Office Visit Bariatrics Octavio Mcclellan DO [address] [place] [phone] [facility] Invasive Bariatric Surg Start: 05-24-2021 End: 05-24-2021 Admission to same day surgery center [facility] OR Comment on above: XI ROBOTIC LAPOROSCOPIC GASTRECTOMY SLEE VE, LIVER BIOPSY, EGD- GI SCHEDULED XI ROBOTIC LAPOROSCO PIC GASTRECTOMY SLEEVE, LIVER BIOPSY, EGD- GI SCHEDULED, POSSIBLE OPEN Start: 05-24-2021 End: 05-24-2021 Laps gstrc rstrictiv px longitudinal gastrectomy [facility] Start: 05-24-2021 Subsequent hospital visit by physician 05/24/2021 Hospital Encounter IP Unit Octavio Mcclellan DO [address] [place] [id number] [facility] Start: 05-19-2021 End: 05-19-2021 Patient encounter procedure 05/19/2021 Appointment Pre-Admission Testing [facility] PRE ADMIT Start: 05-18-2021 End: 05-18-2021 Patient encounter procedure 05/18/2021 Office Visit Bariatrics JerodOctavio, DO [address] [place] [phone] [facility] Invasive Bariatric Surg Start: 10-26-2020 Influenza vaccination Flu vaccine (#1) [facility] [employer] Start: 04-04-2020 End: 04-04-2020 Office Visit 04/04/2020 Office Visit Cardiovascular Medicine Suzanne Pruett MD [address] [place] [address] [phone] [facility] Cardiology Start: 02-02-2020 End: 02-02-2020 Office Visit 02/02/2020 Office Visit Cardiovascular Medicine Suzanne Pruett MD [address] [place] [address] [phone] [facility] Start: 10-27-2019 Influenza vaccination INFLUENZA VACCINE (#1) [facility] Start: 10-26-2018 Influenza vaccination Flu vaccine (#1) [employer] Phone: Start: 09-10-2018 PROSTATE CANCER SCREENING DISCUSSION PROSTATE CANCER SCREENING DISCUSSION [facility] Start: 09-10-2013 Administration of varicella zoster vaccine Zoster (Shingles) Vaccine (1 of 2) [facility] Start: 09-10-2013 Colon cancer screen colonoscopy Colon cancer screen colonoscopy [employer] Phone: Start: 09-10-2013 Colonoscopy COLORECTAL CANCER SCREENING DISCUSSION [facility] Start: 09-10-2013 Prostate specific antigen measurement PROSTATE CANCER SCREENING DISCUSSION [facility] Start: 09-10-2013 Shingles Vaccine (1 of 2) Shingles Vaccine (1 of 2) [facility] Start: 09-10-2013 SHINGRIX VACCINE (1 of 2) SHINGRIX VACCINE (1 of 2) [facility] Start: 09-10-2013 Zoster vaccine hzv live for subcutaneous use ZOSTER (SHINGLES) VACCINE (1 of 2) [facility] Start: 09-10-2008 COLOGUARD (FIT-DNA) COLOGUARD (FIT-DNA) [facility] Start: 09-10-2008 Colonoscopy COLONOSCOPY [facility] Start: 09-10-2008 COLORECTAL CANCER SCREENING COLORECTAL CANCER SCREENING [facility] Start: 09-10-[address] COLONOGRAPHY [facility] Start: 09-10-2008 DIABETES SCREEN DIABETES SCREEN [facility] Start: 09-10-2008 Diabetes Screening Diabetes Screening [facility] Start: 09-10-2008 FECAL OCCULT BLOOD FECAL OCCULT BLOOD [facility] Start: 09-10-2008 Screening for malignant neoplasm of colon [facility] Start: 09-10-2008 SIGMOIDOSCOPY SIGMOIDOSCOPY [facility] Start: 2003 Diabetes screen Diabetes screen [facility] [employer] Phone: Start: 2003 Fasting lipid profile LIPID SCREENING [facility] [employer] Start: 2003 Lipid [address] Lipid screen [facility] Phone: Start: 09-10-1998 Lipid 1996 panel - Serum or Plasma Lipid Screening [facility] Start: 09-10-1998 LIPID SCREEN LIPID SCREEN [facility] Start: 09-10-1982 DTaP,Tdap and Td Vaccines (1 - Tdap) DTaP,Tdap and Td Vaccines (1 - Tdap) [facility] Start: 09-10-1982 DTaP/Tdap/Td vaccine (1 - Tdap) DTaP/Tdap/Td vaccine (1 - Tdap) [facility] Start: 09-10-1982 Hepatitis B vaccine (1 of 3 - Risk 3-dose series) Hepatitis B vaccine (1 of 3 - Risk 3-dose series) [facility] Start: 09-10-1982 Pneumococcal Vaccine: 50+ (1 of 2 - PCV) Pneumococcal Vaccine: 50+ (1 of 2 - PCV) [facility] Start: 09-10-1982 Third diphtheria, tetanus and acellular pertussis (DTaP) vaccination TDAP (ADULT) [facility] Start: 09-10-1982 Urine microalbumin profile [facility] Start: 09-10-1981 Adult BMI Follow Up Plan Adult BMI Follow Up Plan [facility] Start: 09-10-1981 Annual PCP Team Chronic Disease Visit Annual PCP Team Chronic Disease Visit [facility] Start: 09-10-1981 BP Controlled (<130/80) BP Controlled (<130/80) [facility] Start: 09-10-1981 Depression Screening Depression Screening [facility] Start: 09-10-1981 Diabetic retinal exam Diabetic retinal exam [facility] Start: 09-10-1981 Hepatitis B surface antibody level LDL Cholesterol [facility] Start: 09-10-1981 HEPATITIS C SCREENING HEPATITIS C SCREENING [facility] Start: 09-10-1981 Hepatitis C screening Hepatitis C Screening [facility] Start: 09-10-1981 HIV SCREENING HIV SCREENING [facility] Start: 09-10-1981 HIV screening HIV Screening [facility] Start: 09-10-1981 Tetanus vaccination TETANUS [facility] Start: 09-10-1981 Urine screening for protein Diabetic microalbuminuria test [facility] Start: 09-10-1978 HIV screen HIV screen [facility] Phone: Start: 09-10-1978 HIV screening HIV screen [facility] Start: 09-10-1976 HIV screening HIV SCREENING DISCUSSION [employer] Start: 1975 Depression Screen Depression Screen [facility] Start: 1975 Depression Screening Depression Screening [facility] Start: 09-10-1974 DTaP/Tdap/Td vaccine (1 - Tdap) DTaP/Tdap/Td vaccine (1 - Tdap) [facility] [employer] Phone: Start: 09-10-1973 3 comp foot exam completed Diabetic Foot Exam [facility] Start: 09-10-1973 Diabetic foot examination Diabetic foot exam [facility] Start: 09-10-1973 Glaucoma screening Dilated Retinal Exam [facility] Start: 09-10-1973 Hepatitis B screening Urine Albumin:Creatinine Ratio [facility] Start: 09-10-1973 Hepatitis C antibody, confirmatory test Dilated Retinal Exam [facility] Start: 09-10-1969 Pneumococcal 0-64 years Vaccine (1 of 2 - PPSV23) Pneumococcal 0-64 years Vaccine (1 of 2 - PPSV23) [facility] Start: 09-10-1969 Pneumococcal vaccination [facility] Start: 09-10-1968 COVID-19 Vaccine (1) COVID-19 Vaccine (1) [employer] Start: 03-13-1964 COVID-19 VACCINE (#1) COVID-19 VACCINE (#1) [facility] Start: 1965 Hepatitis C antibody, confirmatory test HEPATITIS C VIRUS SCREENING [employer] Start: 1965 Hepatitis C screen Hepatitis C screen [employer] Phone: Start: 1965 Hepatitis C screening Hepatitis C screen [employer] Start: 1963 Potassium [Moles/Vol] POTASSIUM [facility] Bacteria identified in Urine by Culture [facility] Chlamydia trachomati s DNA [Presence] in Unspecified specimen by MUKUL with probe detection [facility] Work Phone: Continuous pulse oximetry Pulse oximetry, continuous Respiratory Care Routine Every 4hr until discontinued starting 05/24/2021 [employer] Phone: Comment on above: Every 4hr until discontinued starting CT LUMBAR SPINE WO CONTRAST CT LUMBAR SPINE WO CONTRAST Imaging STAT 04/11/2019 1:43 PM EST [employer] Phone: Neisseria gonorrhoea e DNA [Presence] in Unspecified specimen by MUKUL with probe detection [facility] Work Phone: Oxygen therapy [[facility] Data Set] Initiate Oxygen Therapy Protocol Respiratory Care Routine As Needed until discontinued starting 05/24/2021 [employer] Phone: Comment on above: As Needed until discontinued starting Radiography for bone length studies XR BONE LENGTH STUDY Imaging Routine Hx of total knee arthroplasty, right 01/08/2020 1:37 PM EST [employer] Renal function 2000 panel - Serum or Plasma [facility] Spirometry panel Incentive silverio metry Respiratory Care Routine Every 2hr while awake until discontinued starting 05/24/2021 [employer] Phone: Comment on above: Every 2hr while awake until discontinued starting 05/24/2021 Surgical Pathology Surgical Path ology Lab Routine Release Upon Ordering for 1 Occurrences starting 05/24/2021 [employer] Phone: Comment on above: Release Upon Ordering for 1 Occurrences starting 05/24/2021 Trichomonas vaginali s DNA [Presence] in Unspecified specimen by MUKUL with probe detection [facility] Work Phone: X-ray of right knee XR KNEE RIGH T 3 VIEWS Imaging Routine Hx of total knee arthroplasty, right 01/08/2020 1:37 PM [facility] End: 06-06-2024 XR Lumbar spine AP and Lateral XR LUMBAR LIMITED 2V AP/LAT Radiology Routine Radiculopathy, lumbar region 1 Occurrences starting 05/08/2023 until 06/06/2024 [facility] Work Phone: Comment on above: 1 Occurrences starting 05/08/2023 until 06/06/2024 [facility] Immunizations Immunization Date Immunization Notes Care Provider Jazmin mariscal 05-08-2023 influenza virus vacc ine, unspecified formulation Thomas Mathew MD Work Phone: [facility] Payers Date Payer Category Payer Self-pay [id number] 2019 Private Health Insurance xxx [id number] 2019 Worker's Compensation 2019 Government (not [facility] care or Medicaid) [facility] [place] [address] [id number]. [id number] 2019 Unknown HEALTH MANAGEMEN T SOLUTIONS HEALTH MGMT SOLUTIONS [facility] FUNDED xxxxxxxx 2019-Present [phone] [place] [address] xxxxxxxx [id number]. 2.7.3.839547.315 2019 Unknown [id number] 2019 Unknown [id number] 2019 Unknown HEALTH MANAGEMEN T SOLUTIONS HEALTH MGMT SOLUTIONS [facility] FUNDED xxxxx 2019-Present [phone] [place] [address] xxxxx [id number]. 2.7.3.003169.315 2019 Unknown [id number]. 1.13.159. 2.7.3.951900.315 2019 Worker's Comp Other Managed Care [facility] [id number]. 2.7.9.693252.306.315 2019 Unknown [id number] 2014 Private Health Insurance [id number] 2014 Private Health Insurance BRENTON Carlos KATI xxxxxxxxxx 2014-Present [phone] [address] [place] [address] xxxxxxxxxx 1.2.840.639093.1.13.239. 2.7.3.247433.315 2013 Private Health Insurance 1965 Unknown [id number] 2.16.840.1.195814.3.579. 2.176 1963 Unknown [id number] 2.16.840.1.902031.3.579. 2.176 1963 Unknown [id number] 2.16.840.1.230068.3.579. 2.176 1963 Unknown [id number] 2.16.840.1.122634.3.579. 2.196 1963 Unknown [id number] 2.16.840.1.968530.3.579. 2.175 1963 Unknown [id number] 2.16.840.1.458800.3.579. 2.647 1963 Unknown [id number] 2.16.840.1.261405.3.579. 2.593 1963 Unknown [id number] 2.16.840.1.981966.3.579. 2.593 1963 Unknown [id number] 2.16.840.1.486301.3.579. 2.593 1963 Unknown [id number] 2.16.840.1.352398.3.579. 2.593 1963 Unknown [id number] 2.16.840.1.449155.3.579. 2.593 1963 Unknown [id number] 2.16.840.1.828062.3.579. 2.593 1963 Unknown [id number] 2.16.840.1.514273.3.579. 2.593 1963 Unknown [id number] 2.16.840.1.932675.3.579. 2.593 1963 Unknown [id number] 2.16.840.1.604820.3.579. 2.593 1963 Unknown [id number] 2.16.840.1.673202.3.579. 2.593 1963 Unknown [id number] 2.16.840.1.643782.3.579. 2.593 1963 Unknown [id number] 2.16.840.1.446031.3.579. 2.59 1963 Unknown [id number] 2.16.840.1.342911.3.579. 2.59 1963 Unknown [id number] 2.16840.1.364644.3.579. 2.59 1963 Unknown [id number] 2.16840.1.218470.3.579. 2.59 1963 Unknown [id number] 2.840.1.942415.3.579. 259 1963 Unknown [id number] 2.840.1.443984.3.579. 259 1963 Unknown [id number] 2.840.1.807188.3.579. 259 1963 Unknown [id number] 2.840.1.460709.3.579. 2.59 1963 Unknown [id number] 2.840.1.026396.3.579. 259 1963 Unknown [id number] 2.840.1.658416.3.579. 2.59 1963 Unknown [id number] 2.840.1.430347.3.579. 2.59 1963 Unknown [id number] 2.840.1.413146.3.579. 2.59 1963 Unknown [id number] 2.840.1.729266.3.579. 2.1286 1963 Unknown [id number] 2.16840.1.404429.3.579. 2.128 1963 Unknown [id number] 2.840.1.906458.3.579. 2.1286 1963 Unknown [id number] 2.16.840.1.672967.3.579. 2.727 1963 Unknown [id number] 2.16.840.1.852313.3.579. 2.727 1963 Unknown [id number] 2.16.840.1.674142.3.579. 2.727 1963 Unknown [id number] 2.16.840.1.428917.3.579. 2.727 1959 Unknown [id number] 1.2.840.487233.1.13.239. 2.7.3.272172.315 1959 Unknown [id number] Self-pay Self Pay [facility]Pain Mgmt [id number] Unknown [id number] 2.16.840.1.500834.3.579. 2.531 Unknown [id number] 2.16.840.1.596335.3.579. 2.531 Unknown [id number] 2.16.840.1.479683.19 Social History Date Type Detail Facility Start: 04-11-2019 End: 08-07-2024 Tobacco smoking status CTIS Never smoker [employer] Start: 04-11-2019 End: 05-25-2021 Alcohol intake Lifetime non-drinker (finding) [employer] Phone: Start: 04-11-2019 End: 01-08-2020 History SDOH Alcohol Frequency 1 [employer] Phone: Start: 1965 Sex Assigned At Not on file [employer] Phone: Start: 11-26-2013 End: 01-08-2020 Tobacco use and exposure Never used [employer] Start: 1965 Sex Assigned At Male [facility] Start: 04-08-2021 End: 05-24-2021 Exposure to SARS-CoV-2 (event) Not sure [employer] Phone: Start: 11-05-2022 End: 03-25-2023 Sex Assigned At [facility] Start: 01-26-2014 End: 03-25-2023 Alcohol intake Current non-drinker of alcohol (finding) [facility] Tobacco smoking status Never [facility] Start: 11-05-2022 End: 03-25-2023 [facility] Start: 12-05-2023 End: 02-13-2024 Alcoholic beverage intake [facility] Start: 06-08-2009 End: 09-30-2014 Sex Male (finding) [facility] Sexual Orientation [facility] Medical Equipment Procedure Code Equipment Code Equipment Origin al Text Equipment Identifier Dates CYSTOSCOPY W/ HO MIUM LASER Octavio ARAIZA MD 03/28/20 Unknown Abdomen {[id number] FDA Start: 03-28-2020 Screw Darby 3 Alicia nium Set Merlyn Spine - [id number] Start: 12-07-2022 Screw Darby 3 Serr eladio 6.5mm 50mm Bone Polyaxial Nonsterile Spine - [id number] Start: 12-07-2022 Vitoss Ba2x Bioactive Bone Graft Substitute 5.0cub Cm [id number] Start: 12-07-2022 Cage Tritanium 6 d [id number] Spinal Sterile Latex Free Lumbar Posterior - [id number] Start: 12-07-2022 Cage Tritanium 6 d [id number] Spinal Sterile Latex Free Lumbar Posterior - [id number] Start: 12-07-2022 Screw Darby 3 Serr eladio 6.5mm 45mm Bone Polyaxial Nonsterile Spine - [id number] Start: 12-07-2022 Goals Date Patient Goal Desired Activity /State Functional Status Date Assessment Result Facility 02-04-2023 Functional Status N/A [facility] 12-11-2022 Are you deaf, or do you have serious difficulty hearing No 12/11/2022 12:52 PM EDT Livia Calix RN No [facility] 12-11-2022 Are you blind, or do you have serious difficulty seeing, even when wearing glasses No 12/11/2022 12:52 PM EDT Livia Calix RN No [facility] 12-11-2022 Do you have serious difficulty walking or climbing stairs No 12/11/2022 12:52 PM EDT Livia Calix RN No [facility] 12-11-2022 Do you have difficul ty dressing or bathing No 12/11/2022 12:52 PM EDT Livia Calix RN No [facility] 12-11-2022 Because of a physica l, mental, or emotional condition, do you have difficulty doing errands alone such as visiting a physician's office or shopping No 12/11/2022 12:52 PM EDT Livia Calix RN [facility] 10-17-2022 Functional Status N/A General Anaya [facility] 03-19-2022 Functional Status N/A [facility] Mental Status Date Assessment Result Facility 12-11-2022 Because of a physica l, mental, or emotional condition, do you have serious difficulty concentrating, remembering, or making decisions No 12/11/2022 12:52 PM EDT Livia Calix RN [facility] Clinical Notes 05-03-2021 to 08-07-2024 Telephone Encounter - Cherelle Oleary RN - 04/10/2024 2:13 PM ESTTelephone Encounter - Cherelle Oleary RN - 04/10/2024 2:13 PM SCARLET Enriquez - 02/13/2024 10:45 AM EST Note Date & Type Note Facility 08-07-2024 Hospital Discharge instructions Patient Education 08/07/2024 11:52:55 Dietary Guidelines to Help Prevent Kidney Stones [...] include: ?8 oz (237 mL) of milk, bzzakwo-eskivijiigko-wykkx milk, and calcium-fortifiedfruit juice. Calcium-fortified means that [...] ?Spinach (cooked), rhubarb, beets, sweet potatoes, and Citizen [place] chard. ?Peanuts. ?Potato chips, somali fries, and baked potatoes with skin on. ?Nuts and nut products. ?Chocolate. If you regularly take a diuretic medicine, make sure to eat at least 1 or 2 servings of fruits or vegetables that are high in potassium each day. These include: ?Avocado. ?Banana. ?[place], prune, carrot, or tomato juice. ?Baked potato. [...] magnesium, fish oil, or vitamin B6. Take fxof-afk-qovcmgw and prescription medicines only as told by [...] Casseroles. Pizza. Lasagna. Frozen meals. Potato chips. [place] Citizen fries. The items listed above may not [...] provider. Document Revised: 05/24/2022 Document Reviewed: 05/24/2022 [employer] Patient Education 2023 [employer] Follow Up Care 07/03/2024 14:31:41 With:LIDIA JACOBS, Cecelia Jj, URL Address: [address] [place], [place] [id number]- When: Unknown [facility] 08-07-2024 Note Patient Education Nephrology Dietary Guidelines to Help [...] for following this plan? Reading food labels ??? Choose foods with no salt added or low-salt labels. Limit your salt (sodium) intake to less than 1,500 mg a day. ??? Choose foods with calcium for each meal and snack. Try to eat about 300 mg of calcium at each meal. Foods that contain 200?500 mg of calcium a serving include: ? 8 oz (237 mL) of milk, eynnyzz-wjghceospyzk-ktfja milk, and calcium-fortifiedfruit juice. Calcium-fortified means that [...] much calcium is recommended for you. Shopping ??? Buy plenty of fresh fruits and vegetables. Most people do not need to avoid fruits and vegetables, even if these foods contain nutrients that may contribute to kidney stones. ??? When shopping for convenience foods, choose: ? Whole pieces of fruit. ? Pre-made salads with dressing on the side. ? Low-fat fruit and yogurt smoothies. ??? Avoid buying frozen meals or prepared deli foods. These can be high in sodium. ??? Look for foods with live cultures, such as yogurt and kefir. ??? Choose high-fiber grains, such as whole-wheat breads, oat bran, and wheat cereals. Cooking ??? Do not add salt to food when cooking. Place a salt shaker on the table and allow each person to add their own salt to taste. ??? Use vegetable protein, such as beans, textured vegetable protein (TVP), or tofu, instead of meat in pasta, casseroles, and soups. Meal planning ??? Eat less salt, if told by your dietitian. To do this: ? Avoid eating processed or pre-made food. ? Avoid eating fast food. ??? Eat less animal protein, including cheese, meat, [...] size of the palm of your hand. ??? Eat at least five servings of fresh fruits and vegetables each day. To do this: ? Keep fruits and vegetables on hand for snacks. ? Eat one piece of fruit or a handful of berries with breakfast. ? Have a salad and fruit at lunch. ? Have two kinds of vegetables at dinner. ??? You may be told to limit foods that are high in a substance called oxalate. These include: ? Spinach (cooked), rhubarb, beets, sweet potatoes, and Citizen [place] chard. ? Peanuts. ? Potato chips, somali fries, and baked potatoes with skin on. ? Nuts and nut products. ? Chocolate. ??? If you regularly take a diuretic medicine, make sure to eat at least 1 or 2 servings of fruits or vegetables that are high in potassium each day. These include: ? Avocado. ? Banana. ? [place], prune, carrot, or tomato juice. ? Baked potato. ? Cabbage. ? Beans and split peas. Lifestyle ??? Drink enough fluid to keep your urine pale yellow. This is the most important thing you can do. Spread your fluid intake throughout the day. ??? If you drink alcohol: ? Limit how [...] oz glass of hard liquor (44 mL). ??? Lose weight if told by your health care provider. Work with your dietitian to find an eating plan and weight loss strategies that work best for you. General information ??? Talk to your health care provider and [...] as magnesium, fish oil, or vitamin B6. ??? Take fcnq-mjr-oqskedo and prescription medicines only as told by your health (more content not included)... [facility] 06-17-2024 Note Orthopedic Surgery Subjective Chief complaint: No chief [...] CT of the right knee completed at [facility] which we do not have access to today. He denies any recent fevers, chills, rigors, or breathlessness. He states that the right knee is slightly warmer compared to the left but denies significant redness of the knee. Patient states that his primary care provider prescribed him 2 antibiotics which she has been taking since Saturday. 06/22/2022 Sukhdeep Simental is a 58 y.o. year old adult [...] (CMS/HCC) GERD (gastroesophageal reflux disease) Hyperlipidemia Hyperparathyroidism Hypertension Kidney stones Lumbar pain OA (osteoarthritis) Obesity Obstetric pulmonary blood clot embolism, antepartum Sleep apnea Objective General: There is no height or weight on file to calculate BMI. No acute distress, comfortable Respiratory: Unlabored breathing with normal rate, no cough Cardiovascular: Warm well perfused extremiti (more content not included)... [facility] 05-18-2024 Note Orthopedic Surgery Subjective Chief complaint: Chief Complaint [...] CT of the right knee completed at [facility] which we do not have access to today. He denies any recent fevers, chills, rigors, or breathlessness. He states that the right knee is slightly warmer compared to the left but denies significant redness of the knee. Patient states that his primary care provider prescribed him 2 antibiotics which she has been taking since Saturday. 06/22/2022 Sukhdeep Simental is a 58 y.o. year old male [...] (CMS/HCC) GERD (gastroesophageal reflux disease) Hyperlipidemia Hyperparathyroidism Hypertension [...] Imaging personally reviewed: X-ray of the right k (more content not included)... [facility] 04-10-2024 Miscellaneous Notes Patient brought in [employer] forms on 04/07/2024. Patient was informed at that time that this office does not do anything with disability form however, we would be happy to provide office notes if he would like. This was again discussed with Diallo who confirmed the above. Patient asks if Dr. Lackey would be willing to complete the disability forms. This matter was discussed with Dr. Lackey today and he too stated that this office does not complete disability forms. Call was placed to patient. He was informed of the above information. If patient requests, office visit notes can be submitted via [facility]. documented in this encounter [employer] 04-10-2024 Telephone encounter Note Patient brought in [employer] forms on 04/07/2024. Patient was informed at that time that this office does not do anything with disability form however, we would be happy to provide office notes if he would like. This was again discussed with Diallo who confirmed the above. Patient asks if Dr. Lackey would be willing to complete the disability forms. This matter was discussed with Dr. Lackey today and he too stated that this office does not complete disability forms. Call was placed to patient. He was informed of the above information. If patient requests, office visit notes can be submitted via [facility]. [facility] 03-03-2024 Miscellaneous Notes Patient called today to follow up on his request for a written statement stating that provider feels that patient is totally disabled. Patient is informed that this office does not write such letters, however, office notes can be faxed to his personal injury attorney's office if that would be beneficial. documented in this encounter [facility] 03-03-2024 Telephone encounter Note Patient called today to follow up on his request for a written statement stating that provider feels that patient is totally disabled. Patient is informed that this office does not write such letters, however, office notes can be faxed to his personal injury attorney's office if that would be beneficial. [facility] 02-13-2024 History of Present illness Narrative [facility] [address] [place] [address] Patient: Sukhdeep Simental Sex: male : 1965 Age: 58 y.o. PCP: BLAYNE ISABEL MD 02/13/2024 Sukhdeep Simental is here for a(n) follow up for his [facility] work injury. 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 Chief Complaint Patient presents with Back Pain [facility] HPI: 12/07/2022 L2/3 fusion and revised L3/4, S1 at [facility] per patient. Bilateral SI joint injection on 04/17/2021 with 10% relief, pain is worse. 07/07/21 Bilateral L3/4 Medial branch block with no relief. right L 3, 4 nerve root injection on 09/01/2021 with no relef. Back Pain This is a chronic problem. The current episode started more than 1 year ago (surgery 10/16/18 discectomy and 07/10/2019 fusion in almo). The problem occurs constantly. The problem is [...] disorder Claustrophobia Diabetes mellitus type 2, controlled ([facility]) Fractures Hyperlipidemia Hypertension Joint pain Low back pain Major depression Obesity Osteoarthritis Pulmonary embolism ([facility]) Seasonal allergies Sleep apnea does not use machine Sleep apnea Visual impairment glasses Past Surgical History: Procedure Laterality Date ANKLE SURGERY spurs removed INJECTION BLOCK EPIDURAL CAUDAL STEROID N/A 10/27/2021 Performed by Darren Lackey MD at [facility] INJECTION BLOCK NERVE MEDIAL BRANCH: bilat L 3/4 Bilateral 07/07/2021 Performed by Darren Lackey MD at [facility] INJECTION BLOCK SACROILIAC JOINT Bilateral 04/17/2021 Performed by Darren Lackey MD at [facility] SPINE TRANSFORAMINAL: right L 3,4 Nroot Right 09/01/2021 Performed by Darren Lackey MD at [facility] JOINT REPLACEMENT knees- right x2, left x1 KNEE SURGERY rt knee inf removed tka added rods LITHOTRIPSY LUMBAR DISCECTOMY L4-5 Left 10/16/2018 Performed by Suzanne Silverio DO at [facility] STOMACH SURGERY 04/2021 sleeve Allergies Allergen Reactions [...] Strain: Low Risk (03/28/2022) Received from [facility], [facility] Overall Financial Resource Strain (CARDIA) Difficulty of Paying Living Expenses: Not hard at all Food Insecurity: No Food Insecurity (12/05/2023) Hunger Screening Food Insecurity - Worry: Never True Food Insecurity - Inability: Never True Transportation Needs: Unknown (03/28/2022) Received from [facility], [facility] PRAPARE - Transportation Lack of Transportation (Medical): No Lack of Transportation (Non-Medical): Not on file Physical Activity: Inactive (12/01/2021) Received from [facility], [facility] Exercise Vital Sign Days of Exercise per Week: 0 days Minutes of Exercise per Session: 20 min Stress: No Stress Concern Present (12/01/2021) Received from [facility], [facility] [employer] [place] [employer] - Occupational Stress Questionnaire Feeling of Stress : Not at all Social Connections: Moderately Isolated (12/01/2021) Received from [facility], [facility] Social Connection and Isolation Panel [NHANES] Frequency of Communication with Friends and Family: More than three times a week Frequency of Social Gatherings with Friends and Family: Once a week Attends Episcopal Services: Never Active Member of Clubs or Organizations: No Attends Club or Organization Meetings: Never Marital Status: Interpersonal Safety: Unknown (04/18/2023) Received from [facility] [place] Safety & [place] Fear of Current or Ex-Partner: Not on file Emotionally Abused: Not on file Physically Abused: Not on file Sexually Abused: Not on file Physically or Sexually Abused: Not on file Housing Instability: Unknown (03/28/2022) Received from [facility], [facility] Housing Stability Vital Sign Unable to [...] Agustin 02/13/24 1603 documented in this encounter [facility] 12-05-2023 History of Present illness Narrative [facility] [address] [place] [address] Patient: Sukhdeep Simental Sex: male : 1965 Age: 58 y.o. PCP: BLAYNE ISABEL MD 12/05/2023 Sukhdeep Simental is here for a(n) follow up for his [facility] work injury. He reports he remains about the same as last visit. Chief Complaint Patient presents with Back Pain HPI: 12/07/2022 L2/3 fusion and revised L3/4, S1 at [facility] per patient. Bilateral SI joint injection on 04/17/2021 with 10% relief, pain is worse. 07/07/21 Bilateral L3/4 Medial branch block with no relief. right L 3, 4 nerve root injection on 09/01/2021 with no relef. Back Pain This is a chronic problem. The current episode started more than 1 year ago (surgery 10/16/18 discectomy and 07/10/2019 fusion in almo). The problem occurs constantly. The problem is [...] disorder Claustrophobia Diabetes mellitus type 2, controlled ([facility]) Fractures Hyperlipidemia Hypertension Joint pain Low back pain Major depression Obesity Osteoarthritis Pulmonary embolism ([facility]) Seasonal allergies Sleep apnea does not use machine Sleep apnea Visual impairment glasses Past Surgical History: Procedure Laterality Date ANKLE SURGERY spurs removed INJECTION BLOCK EPIDURAL CAUDAL STEROID N/A 10/27/2021 Performed by Darren Lackey MD at [facility] INJECTION BLOCK NERVE MEDIAL BRANCH: bilat L 3/4 Bilateral 07/07/2021 Performed by Darren Lackey MD at [facility] INJECTION BLOCK SACROILIAC JOINT Bilateral 04/17/2021 Performed by Darren Lackey MD at [facility] INJECTION SPINE TRANSFORAMINAL: right L 3,4 Nroot Right 09/01/2021 Performed by Darren Lackey MD at [facility] JOINT REPLACEMENT knees- right x2, left x1 KNEE SURGERY rt knee inf removed tka added rods LITHOTRIPSY LUMBAR DISCECTOMY L4-5 Left 10/16/2018 Performed by Suzanne Silverio DO at [facility] STOMACH SURGERY 04/2021 sleeve Allergies Allergen Reactions [...] Strain: Low Risk (03/28/2022) Received from [facility], [facility] Overall Financial Resource Strain (CARDIA) Difficulty of Paying Living Expenses: Not hard at all Food Insecurity: No Food Insecurity (12/05/2023) Hunger Screening Food Insecurity - Worry: Never True Food Insecurity - Inability: Never True Transportation Needs: Unknown (03/28/2022) Received from [facility], [facility] PRAPARE - Transportation Lack of Transportation (Medical): No Lack of Transportation (Non-Medical): Not on file Physical Activity: Inactive (12/01/2021) Received from [facility], [facility] Exercise Vital Sign Days of Exercise per Week: 0 days Minutes of Exercise per Session: 20 min Stress: No Stress Concern Present (12/01/2021) Received from [facility], [facility] [place] [employer] - Occupational Stress Questionnaire Feeling of Stress : Not at all Social Connections: Moderately Isolated (12/01/2021) Received from [facility], [facility] Social Connection and Isolation Panel [NHANES] Frequency of Communication with Friends and Family: More than three times a week Frequency of Social Gatherings with Friends and Family: Once a week Attends Episcopal Services: Never Active Member of Clubs or Organizations: No Attends Club or Organization Meetings: Never Marital Status: Interpersonal Safety: Unknown (04/18/2023) Received from [facility] Safety & Environment Fear of Current or Ex-Partner: Not on file Emotionally Abused: Not on file Physically Abused: Not on file Sexually Abused: Not on file Physically or Sexually Abused: Not on file Housing Instability: Unknown (03/28/2022) Received from [facility], [facility] Housing Stability Vital Sign Unable to Pay for Housing in the Last Year: Not on file Number of Places Lived in the Last Year: Not on file In the last 12 months, was there a time when you did not have a steady place to sleep or slept in a fdc (including now)?: No Review of Systems Constitutional: [...] Agustin 12/12/23 0942 documented in this encounter [facility] 10-07-2023 Telephone encounter Note Pt phoned to ensure todays appt was via phone as noted in appt. Pt unable to manage computer. [facility] 10-07-2023 Miscellaneous Notes Pt phoned to ensure todays appt was via phone as noted in appt. Pt unable to manage computer. documented in this encounter [facility] 10-04-2023 Telephone encounter Note Agency report XR Lumbar Spine 2-3v scanned to Epic [facility] 10-04-2023 Miscellaneous Notes Laura report XR Lumbar Spine 2-3v scanned to Epic documented in this encounter [facility] 08-15-2023 History of Present illness Narrative [facility] [address] [place] [address] Patient: Sukhdeep Simental Sex: male : 1965 Age: 57 y.o. PCP: BLAYNE ISABEL MD 08/15/2023 Sukhdeep Simental is here for a(n) follow up for his [facility] work injury. He reports he has pain higher than before surgery. Chief Complaint Patient presents with Back Pain HPI: 12/07/2022 L2/3 fusion and revised L3/4, S1 at [facility] per patient. Bilateral SI joint injection on 04/17/2021 with 10% relief, pain is worse. 07/07/21 Bilateral L3/4 Medial branch block with no relief. right L 3, 4 nerve root injection on 09/01/2021 with no relef. Back Pain This is a chronic problem. The current episode started more than 1 year ago (surgery 10/16/18 discectomy and 07/10/2019 fusion in almo). The problem occurs constantly. The problem has been gradually worsening since onset. The pain is present in the lumbar spine and gluteal. The quality of the pain is described as aching, stabbing, shooting and cramping (spike pain, twing pain). The pain radiates to the right thigh (across back, posterior below buttocks and thigh). The pain is at a severity of 8/10 (higher pain level in the mornings). The pain is severe. The pain is The same all the time. The symptoms are aggravated by standing and sitting (walking). Stiffness is present: n/a. Associated symptoms include leg pain (Right anterior/posterior thigh), numbness (Right hand d/t positioning from surgery 2 months ago. Going to PT for this) and weakness (BLE uses wheeled seated walker). Pertinent negatives include no bladder incontinence, bowel incontinence, chest pain, fever or tingling. Risk factors include sedentary lifestyle. Treatments tried: PT/HEP (current) with pool therapy, surgery x's2 (last 07/14), inj w/ dr larose (06/15), rest/heat/ice, meds: NSAIDs (celebrex,vol po/gel,motrin), norco, dilaudid, perc., oxy, lyrica, daypro, indometicin, bacof/flexiri/zanflex, biofreeze, campoz, hemp oil. The treatment provided mild relief. The effect of pain on patient's ADLS: Severe Impairment. Past Medical History: Diagnosis Date Arthritis Chronic kidney disease stones Chronic pain disorder Claustrophobia Diabetes mellitus type 2, controlled ([facility]) Fractures Hyperlipidemia Hypertension Joint pain Low back pain Major depression Obesity Osteoarthritis Pulmonary embolism ([facility]) Seasonal allergies Sleep apnea does not use machine Sleep apnea Visual impairment glasses Past Surgical History: Procedure Laterality Date ANKLE SURGERY spurs removed INJECTION BLOCK EPIDURAL CAUDAL STEROID N/A 10/27/2021 Performed by Darren Lackey MD at [facility] INJECTION BLOCK NERVE MEDIAL BRANCH: bilat L 3/4 Bilateral 07/07/2021 Performed by Darren Lackey MD at [facility] INJECTION BLOCK SACROILIAC JOINT Bilateral 04/17/2021 Performed by Darren Lackey MD at [facility] SPINE TRANSFORAMINAL: right L 3,4 Nroot Right 09/01/2021 Performed by Darren Lackey MD at [facility] JOINT REPLACEMENT knees- right x2, left x1 KNEE SURGERY rt knee inf removed tka added rods LITHOTRIPSY LUMBAR DISCECTOMY L4-5 Left 10/16/2018 Performed by Suzanne Silverio DO at [facility] STOMACH SURGERY 04/2021 sleeve Allergies Allergen Reactions [...] Strain: Low Risk (03/28/2022) [facility], [facility] Overall Financial Resource Strain (CARDIA) Difficulty of Paying Living Expenses: Not hard at all Food Insecurity: No Food Insecurity (08/15/2023) Hunger Screening Food Insecurity - Worry: Never True Food Insecurity - Inability: Never True Transportation Needs: Unknown (03/28/2022) Received from [facility], [facility] PRAPARE - Transportation Lack of Transportation (Medical): No Lack of Transportation (Non-Medical): Not on file Physical Activity: Inactive (12/01/2021) Received from [facility], [facility] Exercise Vital Sign Days of Exercise per Week: 0 days Minutes of Exercise per Session: 20 min Stress: No Stress Concern Present (12/01/2021) Received from [facility], [facility] [place] [employer] - Occupational Stress Questionnaire Feeling of Stress : Not at all Social Connections: Moderately Isolated (12/01/2021) Received from [facility], [facility] Social Connection and Isolation Panel [NHANES] Frequency of Communication with Friends and Family: More than three times a week Frequency of Social Gatherings with Friends and Family: Once a week Attends Episcopal Services: Never Active Member of Clubs or Organizations: No Attends Club or Organization Meetings: Never Marital Status: Interpersonal Safety: Unknown (04/18/2023) Received from [facility] [place] Safety & [place] Fear of Current or Ex-Partner: Not on file Emotionally Abused: Not on file Physically Abused: Not on file Sexually Abused: Not on file Physically or Sexually Abused: Not on file Housing Instability: Unknown (03/28/2022) Received from [facility], [facility] Housing Stability Vital Sign Unable to Pay for Housing in the Last Year: Not on file Number of Places Lived in the Last Year: Not on file In the last 12 months, was there a time when you did not have a steady place to sleep or slept in a fdc (including now)?: No Review of Systems Constitutional: Negative. Negative for chills, fatigue and fever. HENT: Negative. Eyes: Negative. Respiratory: Negative. Cardiovascular: Negative. Negative for chest pain. Gastrointestinal: Negative. Negative for bowel incontinence. Endocrine: Negative. Genitourinary: Negative. Negative for bladder incontinence. Musculoskeletal: Positive for back pain. Skin: Negative. Allergic/Immunologic: Negative. Neurological: Positive for weakness (BLE uses wheeled seated walker) and numbness (Right hand d/t positioning from surgery 2 months ago. Going to PT for this). Negative for tingling. Vital Signs: BP 126/84 (BP Site: Right Arm, BP Postition: Sitting) Pulse 110 Resp 20 Physical Exam: GENERAL - Healthy patient that [...] groups bilateral lower extremities including muscles involving knee flexion and extension, as well as foot dorsiflexion and plantarflexion, 3/5 with hip flexion and abduction, No notable atrophy, fasciculations or spasm. SENSORY - No notable sensory deficits in the bilateral lower extremities to touch or pinprick in all dermatomal distributions Straight Leg Raise is negative. Gait is antalgic and assisted with ambulatory aid(s): Walker. Assessment/Treatment Plan: Sukhdeep was seen today for back pain. Diagnoses and all orders for this visit: Spinal stenosis, lumbar region, with neurogenic claudication Monitor Follow up 6 months It is felt that the patient s [...] tapering and discontinuation of medications if applicable. At this time it does appear that the patient s pain is under adequate control with conservative care. It is felt that we should continue this approach and continue to monitor these symptoms and address them again in the future if they become more problematic. This approach was discussed with the patient and they are in agreement. The spine model was demonstrated and CT was reviewed and used to explain the [...] both accurate and complete. Sonal Rodriguez CNA 08/15/23 1228 SCARLET Agustin 08/15/23 1311 documented in this encounter [facility] 07-30-2023 Telephone encounter Note Called Sukhdeep, no answer, left VM [facility] Work Phone: 07-30-2023 Miscellaneous Notes Called Sukhdeep, no answer, left VM Have sent XR Lumbar order to Agency fax # [phone] as requested from patient. Pt phoned regarding upcoming visit 10/06 [employer] comp appt. Pt unable to manage virtual visit asking for telephone visit. Pt asking how far in advance to do X-Ray. Pt will have X-Ray done locally at Agency. Please call and advise Pt phone # [phone] documented in this encounter [facility] 07-30-2023 Telephone encounter Note Have sent XR Lumbar order to Agency fax # [phone] as requested from patient. [facility] 07-30-2023 Telephone encounter Note Pt phoned regarding upcoming visit 10/06 [employer] appt. Pt unable to manage virtual visit asking for telephone visit. Pt asking how far in advance to do X-Ray. Pt will have X-Ray done locally at Agency. Please call and advise Pt phone # [phone] [facility] 07-26-2023 Telephone encounter Note Office note faxed. Faxed verification received. [facility] 07-26-2023 Miscellaneous Notes Office note faxed. Faxed verification received. Printed for review. Received request from [employer] needing more info, in epic for review. documented in this encounter [facility] 07-23-2023 Telephone encounter Note Printed for review. [facility] 07-23-2023 Telephone encounter Note Received request from [employer] needing more info, in Snipd for review. [facility] 05-08-2023 History of Present illness Narrative SPINE SURGERY FOLLOW UP This is a virtual visit using Audio Only Visit. It required patient-provider interaction for the medical decision making as documented below. I have communicated my name and active licensure. The patient's identity and physical location were verified at the time of this visit. Either the patient or their legal sales development representative has been informed of the risks [...] visit. Either the patient or their legal sales development representative has been informed of the risks and benefits of -- and alternatives to -- treatment through a remote evaluation and consents to proceed with the evaluation remotely. The documentation for this note was completed by Hannah Ochoa, AA Student acting as scribe for Thomas Mathew MD. May 08, 2023 4:33 PM. SIGNATURE: Thomas Mathew MD PATIENT NAME: Sukhdeep Simental DATE: May 08, 2023 TIME: 4:00 PM PAGER: documented in this encounter [facility] 05-08-2023 Miscellaneous Notes A letter was received from the law office of Jasper Loredo. 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 The information was reviewed by Nadiya Flynn PA-C and he would not like to amend the [facility] claim to allow the above mentioned condition. Call placed to the office of Jasper Loredo to inform him of provider's decision. No answer at the time call was made. Message left. documented in this encounter [facility] [employer] [facility] 05-08-2023 Telephone encounter Note A letter was received from the law office of Jasper Loredo. 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 The information was reviewed by Nadiya Flynn PA-C and he would not like to amend the [facility] claim to allow the above mentioned condition. Call placed to the office of Jasper Loredo to inform him of provider's decision. No answer at the time call was made. Message left. [facility] 05-07-2023 Miscellaneous Notes Call received from Hannah, patient's gearcase assembler. She called as patient's MEDCO-14 is expiring soon. Hannah is informed that patient called about this and an updated MEDCO-14 was completed and faxed on 05/03/2023. Hannah states she is his gearcase assembler and would like information sent to her [...] will be 05/15/2023-11/14/2023. [facility] 05-07-2023 Telephone encounter Note Call received from Hannah, patient's gearcase assembler. She called as patient's MEDCO-14 is expiring soon. Hannah is informed that patient called about this and an updated MEDCO-14 was completed and faxed on 05/03/2023. Hannah states she is his gearcase assembler and would like information sent to her [...] new dates for restrictions will be 05/15/2023-11/14/2023. [facility] [employer] [facility] 04-18-2023 Miscellaneous Notes Signed form faxed to number requested. Faxed verification received. Printed for review and signature. Received PT Certification from [facility]. Scanned to chart for provider signature. documented in this encounter [facility] 04-16-2023 Miscellaneous Notes Received imaging disc by mail from [facility]. Disc contains CT Lumbar spine done on 04/03/23. Will place in nurse folder in [address]. documented in this encounter [facility] 04-09-2023 Miscellaneous Notes Called & spoke with Sukhdeep Asked him to obtain imaging disc & send to our office. Will require images to be uploaded to assess for bony fusion at previous surgical site and adjacent segment disease. Received CT Lumbar Spine Report from [facility], in epic to review. documented in this encounter [facility] 02-14-2023 History of Present illness Narrative [facility] [address] [place] [address] Patient: Sukhdeep Simental Sex: male : 1965 Age: 57 y.o. PCP: BLAYNE ISABEL MD 02/14/2023 Sukhdeep Simental is here for a 6 month follow up for his [facility] work injury. Chief Complaint Patient presents with Back Pain HPI: 12/07/2022 L2/3 fusion and revised L3/4, S1 at [facility] per patient. Bilateral SI joint injection on 04/17/2021 with 10% relief, pain is worse. 07/07/21 Bilateral L3/4 Medial branch block with no relief. right L 3, 4 nerve root injection on 09/01/2021 with no relef. Back Pain This is a chronic problem. The current episode started more than 1 year ago (surgery 10/16/18 discectomy and 07/10/2019 fusion in almo). The problem occurs constantly. The problem has been gradually worsening since onset. The pain is present in the lumbar spine and gluteal. The quality of the pain is described as aching, stabbing and shooting (throbbing, sharp poke). The pain radiates to the right thigh (right hip; Right anterior thigh is extremely sensitive). The pain is at a severity of 9/10 (8.5/10 at this time but does increase to 9/10 in the evenings). The pain is severe. The pain is The same all the time. The symptoms are aggravated by standing and sitting (walking). Stiffness is present: n/a. Associated symptoms include leg pain (Right anterior thigh is super sensitive pt states. Not so much painful), numbness (Right hand d/t positioning from surgery 2 months ago. Going to PT for this) and weakness (BLE uses wheeled seated walker). Pertinent negatives include no bladder incontinence, bowel incontinence, chest pain, fever or tingling. Risk factors include sedentary lifestyle. Treatments tried: PT/HEP (current) with pool therapy, surgery x's2 (last 07/14), inj w/ dr larose (06/15), rest/heat/ice, meds: NSAIDs (celebrex,vol po/gel,motrin), norco, dilaudid, perc., oxy, lyrica, daypro, indometicin, bacof/flexiri/zanflex, biofreeze, campoz, hemp oil. The treatment provided mild relief. The effect of pain on patient's ADLS: Severe Impairment. Past Medical History: Diagnosis Date Arthritis Chronic kidney disease stones Chronic pain disorder Claustrophobia Diabetes mellitus type 2, controlled ([facility]) Fractures Hyperlipidemia Hypertension Joint pain Low back pain Major depression Obesity Osteoarthritis Pulmonary embolism ([facility]) Seasonal allergies Sleep apnea does not use machine Sleep apnea Visual impairment glasses Past Surgical History: Procedure Laterality Date ANKLE SURGERY spurs removed INJECTION BLOCK EPIDURAL CAUDAL STEROID N/A 10/27/2021 Performed by Darren Lackey MD at [facility] INJECTION BLOCK NERVE MEDIAL BRANCH: bilat L 3/4 Bilateral 07/07/2021 Performed by Darren Lackey MD at [facility] INJECTION BLOCK SACROILIAC JOINT Bilateral 04/17/2021 Performed by Darren Lackey MD at [facility] INJECTION SPINE TRANSFORAMINAL: right L 3,4 Nroot Right 09/01/2021 Performed by Darren Lackey MD at [facility] JOINT REPLACEMENT knees- right x2, left x1 KNEE SURGERY rt knee inf removed tka added rods LITHOTRIPSY LUMBAR DISCECTOMY L4-5 Left 10/16/2018 Performed by Suzanne Silverio DO at [facility] STOMACH SURGERY 04/2021 sleeve Allergies Allergen Reactions Loratadine Other reaction(s): rash hives Chlorhexidine Iodine Rash Topical iodine-no dye per pain [...] Social Determinants of Health Financial Resource Strain: Not on file Food Insecurity: No Food Insecurity (02/14/2023) Hunger Screening Food Insecurity - Worry: Never True Food Insecurity - Inability: Never True Transportation Needs: Not on file Physical Activity: Not on file Stress: Not on file Social Connections: Not on file Interpersonal Safety: Not on file Review of Systems Constitutional: Negative. Negative for chills and fever. HENT: Negative. Eyes: Negative. Respiratory: Negative. Cardiovascular: Negative for chest pain. Gastrointestinal: Negative. Negative for bowel incontinence. Genitourinary: Negative. Negative for bladder incontinence. Musculoskeletal: Positive for back pain. Skin: Negative. Neurological: Positive for weakness (BLE uses wheeled seated walker) and numbness (Right hand d/t positioning from surgery 2 months ago. Going to PT for this). Negative for tingling. Vital Signs: BP (!) 143/94 (BP Site: Right Arm, BP Postition: Sitting) Pulse 89 Resp 18 Ht 175.3 cm (5' 9 ) Wt 121.1 kg (267 lb) SpO2 98% BMI 39.43 kg/m Physical Exam: GENERAL - Healthy patient [...] extension, as well as foot dorsiflexion and plantarflexion with exception to 3/5 strength with right hip dorsiflexion. No notable atrophy, fasciculations or spasm. SENSORY - No notable sensory deficits in the bilateral lower extremities to touch or pinprick in all dermatomal distributions with exception to increased sensation in the Right L2 and L3 levels. Straight Leg Raise is negative. Gait is antalgic and assisted with ambulatory aid(s): Walker. Assessment/Treatment Plan: Sukhdeep was seen today for back pain. Diagnoses and all orders for this visit: Spinal stenosis, lumbar region, with neurogenic claudication Monitor Follow up 6 months The medications prescribed have been reviewed for [...] affected my overall medical decision making: Obesity and Diabetes OARRS: Reviewed. Scribe Statement: Scribed for and in the presence of SCARLET AGUSTIN by Sonal Rodriguez CNA. Provider Statement: I, SCARLET AGUSTIN, personally performed the services described in the documentation, as scribed by Sonal Rodriguez CNA in my presence, and it is both accurate and complete. Sonal Rodriguez CNA 02/14/23 1237 Sonal Rodriguez CNA 02/14/23 1256 SCARLET Agustin 02/21/23 1159 documented in this encounter [facility] 02-07-2023 Miscellaneous Notes C9 for physical therapy faxed to [employer]. Faxed verification received. documented in this encounter [facility] 02-07-2023 History of Present illness Narrative SPINE SURGERY FOLLOW UP This [...] which included preparing to see the patient, [id number]-bpbk patient care, completing clinical documentation, obtaining and/or reviewing separately obtained history, performing a medically appropriate examination, counseling and educating the patient/family/caregiver, and ordering medications, tests, or procedures. SIGNATURE: Riddhi Goss APRN.CNP PATIENT NAME: Sukhdeep Simental DATE: February 07, 2023 TIME: 2:39 PM PAGER: documented in this encounter [facility] 02-04-2023 Hospital Discharge instructions Patient Education 02/04/2023 10:26:49 Dietary Guidelines [...] include: ?8 oz (237 mL) of milk, sepicfw-puoakyazdyod-qffyg milk, and calcium-fortifiedfruit juice. Calcium-fortified means that [...] ?Spinach (cooked), rhubarb, beets, sweet potatoes, and Citizen [place] chard. ?Peanuts. ?Potato chips, somali fries, and baked potatoes with skin on. ?Nuts and nut products. ?Chocolate. If you regularly take a diuretic medicine, make sure to eat at least 1 or 2 servings of fruits or vegetables that are high in potassium each day. These include: ?Avocado. ?Banana. ?[place], prune, carrot, or tomato juice. ?Baked potato. [...] magnesium, fish oil, or vitamin B6. Take vqyh-plk-flbhgyz and prescription medicines only as told by [...] Casseroles. Pizza. Lasagna. Frozen meals. Potato chips. [place] Citizen fries. The items listed above may not [...] provider. Document Revised: 05/24/2022 Document Reviewed: 05/24/2022 [employer] Patient Education 2022 [employer]. Follow Up Care 07/27/2022 14:20:34 With:LIDIA JACOBS, Cecelia Jj, URL Address: [facility] [address] , [place] [address]- When:Within 1 Year(s) Comments:w/CT AP w/o Con [facility] 01-23-2023 Miscellaneous Notes Received fax from [employer]. Scanned into inContact. Also received a RTW from [employer]. Scanned into [employer] as well. documented in this encounter [facility] 12-21-2022 Miscellaneous Notes Patient called with complaints of Drug Mccleary not allowing him to hop picker the pain medication that was sent [...] with an update. documented in this encounter [facility] 12-20-2022 History of Present illness Narrative SPINE SURGERY FOLLOW UP This [...] which included preparing to see the patient, wgom-qr-[id number] patient care, completing clinical documentation, obtaining and/or reviewing separately obtained history, performing a medically appropriate examination, counseling and educating the patient/family/caregiver, and ordering medications, tests, or procedures. SIGNATURE: Singh Morgan PA-C PATIENT NAME: Sukhdeep Simental DATE: December 20, 2022 TIME: 2:58 PM PAGER: documented in this encounter [facility] 12-17-2022 Miscellaneous Notes Forms completed and signed by provider. Faxed to number provided and and Sukhdeep notified via voice mail, as requested. Scanned into [employer]. Form completed. Awaiting signature. Printed for review. Received FMLA form by fax from patient's . Scanned to patient's chart for review and completion. documented in this encounter [facility] 12-13-2022 Miscellaneous Notes Spoke with patient at [...] develops weakness to give our office a kenya. Xi Schrader PA-C Patient at [phone] is requesting a call back. He had back surgery on 12-07. He states for the past 2 days his right ring and little finger has been numb. documented in this encounter [facility] 12-12-2022 Miscellaneous Notes Spoke with pharmacy and was informed that medication is approved. No prior authorization needed. Patient called stating pharmacy needs a prior authorization for oxycodone 15 mg. I called the pharmacy on 12/12/2022 at 9:40 AM. Insurance will not pay for the frequency of medication written. They will cover q12h. Prescription changed to oxycodone 15 mg 12h. [id number] [place] [address] - [address] - [phone] Pharmacist at [facility] wanted to inform the office that this patient already takes Percocet 10-325 every 6 hours, picked it up 13 days ago. They tried running the Percocet but his insurance will not cover both. Please call them back with new instructions. documented in this encounter [facility] 12-11-2022 Note HNO ID: [id number] Author: Lulu Oviedo MD Service: General Internal Medicine Author Type: Physician Type: Progress Notes Filed: 12/11/2022 12:53 PM Note Text: PROGRESS NOTE - INTERNAL MEDICINE PATIENT NAME: Sukhdeep Simental SERVICE DATE: December 11, 2022 SERVICE TIME: 12:52 PM PCP: Blayne Isabel MD ADMITTING PHYSICIAN: Thomas Mathew MD MD INTERVAL HISTORY OF PRESENT [...] 10 mg tab( (more content not included)... [facility] 12-10-2022 Note HNO ID: [id number] Author: Lulu Oviedo MD Service: General Internal Medicine Author Type: Physician Type: Progress Notes Filed: 12/10/2022 1:03 PM Note Text: PROGRESS NOTE - INTERNAL MEDICINE PATIENT NAME: Sukhdeep Simental SERVICE DATE: December 10, 2022 SERVICE TIME: 1:01 PM PCP: Blayne Isabel MD ADMITTING PHYSICIAN: Thomas Mathew MD MD INTERVAL HISTORY OF PRESENT [...] 10% iv bolu (more content not included)... [facility] 12-09-2022 Note HNO ID: [id number] Author: Alyssa Tim APRN.1ST PRESSMAN [employer] Service: Neurosurgery Author Type: Nurse Practitioner Type: [...] is currently not well controlled despite Dilaudid ADMISSIONS RN and Toradol. He denies new weakness, numbness, [...] mg ORAL q 8 H Alyssa Tim APRN.1ST PRESSMAN [employer] 1,000 mg at 12/09/22 0559 aluminum-magnesium hydroxide-simethicone 200-200-20 mg/5 mL 30 mL 30 mL ORAL q 6 H PRN Archual, Alyssa, INSPECTOR OPEN DIE.1ST PRESSMAN [employer] bisacodyl EC 10 mg tab(s) (DULCOLAX) 10 mg ORAL DAILY PRN Archual, Alyssa, INSPECTOR OPEN DIE.1ST PRESSMAN [employer] dextrose 40 % 15 g 15 g ORAL PRN Archual, Alyssa, INSPECTOR OPEN DIE.1ST PRESSMAN [employer] Or glucagon 1 mg injection 1 mg INTRAMUSCULAR PRN Archual, Alyssa, INSPECTOR OPEN DIE.1ST PRESSMAN [employer] Or dextrose 10% iv bolus 12.5 g INTRAVENOUS PRN Archual, Alyssa, INSPECTOR OPEN DIE.1ST PRESSMAN [employer] docusate sodium 100 mg cap(s) (COLACE) 100 mg ORAL BID Thomas Mathew MD 100 mg at 12/09/22 0821 doxazosin 4 mg tab(s) (CARDURA) 4 mg ORAL DAILY Thomas Mathew MD 4 mg at 12/09/22 0821 fentaNYL ADMISSIONS RN 20 mcg/mL in NaCl 0.9% 100 mL (SUBLIMAZE) INTRAVENOUS CONTINUOUS Archual, Alyssa, INSPECTOR OPEN DIE.1ST PRESSMAN [employer] ferrous sulfate 325 mg tab(s) 325 mg ORAL DAILY Archual, Alyssa, INSPECTOR OPEN DIE.1ST PRESSMAN [employer] 325 mg at 12/09/22 0821 heparin 5,000 Units injection 5,000 Units SUBCUTANEOUS q 12 H Archual, Alyssa, INSPECTOR OPEN DIE.1ST PRESSMAN [employer] 5,000 Units at 12/09/22 0821 hydrOXYzine HCl 25 mg tab(s) (ATARAX) 25 mg ORAL q 6 H PRN Archual, Alyssa, INSPECTOR OPEN DIE.1ST PRESSMAN [employer] insulin lispro injection (rapid acting) (HumaLOG) SUBCUTANEOUS w MEALS AND HS Archual, Alyssa, INSPECTOR OPEN DIE.1ST PRESSMAN [employer] 1 Units at 12/07/22 1803 lactated ringers iv infusion 75 mL/hr INTRAVENOUS CONTINUOUS Thomas Mathew MD 75 mL/hr at 12/09/22 1018 75 mL/hr at 12/09/22 1018 methocarbamol 750 mg tab(s) (ROBAXIN) 750 mg ORAL QID Archual, Alyssa, INSPECTOR OPEN DIE.1ST PRESSMAN [employer] NaCl 0.9% iv flush bag 20 mL INTRAVENOUS PRN Thomas Mathew MD naloxone 0.1 mg injection (NARCAN) 0.1 mg INTRAVENOUS q 2 MIN PRN Archual, Alyssa, INSPECTOR OPEN DIE.1ST PRESSMAN [employer] omeprazole 20 mg cap(s) (PriLOSEC) 20 mg ORAL 2 times per day Michael York, RPh 20 mg at 12/08/222019 ondansetron 4 mg tab(s) (ZOFRAN) 4 mg ORAL q 6 H PRN Thomas Mathew MD Or ondansetron (PF) 4 mg injection (ZOFRAN) 4 mg INTRAVENOUS q 6 H PRN Thomas Mathew MD 4 mg at 12/09/22 0941 polyethylene glycol 3350 17 g packet 17 g ORAL DAILY Archual, Alyssa, INSPECTOR OPEN DIE.1ST PRESSMAN [employer] 17 g at 12/09/22 0821 simvastatin 10 mg tab(s) (ZOCOR) 10 mg ORAL AT BEDTIME Thomas Mathew MD 10 mg at 12/08/222019 tamsulosin 0.4 mg cap(s) (FLOMAX) 0.4 mg ORAL DAILY Thomas Mathew MD 0.4 mg at 12/09/22 08 traZODone 150 mg tab(s) (DESYREL) 150 mg ORAL AT BEDTIME Archual, Alyssa, INSPECTOR OPEN DIE.1ST PRESSMAN [employer] 150 mg at 12/08/222019 valsartan 80 mg tab(s) (DIOVAN) 80 mg ORAL DAILY Archual, Alyssa, INSPECTOR OPEN DIE.1ST PRESSMAN [employer] 80 mg at 12/09/22 08 ASSESSMENT AND [...] pain control, Pain management consulted, started Fentanyl ADMISSIONS RN today due to continued uncontrolled pain, Robaxin and Tylenol scheduled, no further Toradol due to CKD 3. -Check postop lumbar XR today -Medicine consult for post-operative medical management -Discharge planning, anticipate discharge home in 1-2 more days. Plan of care discussed with Dr. Mathew via phone. Medication and Non-Pharmacologic VTE Prophylaxis/Anticoagulants 10/25/21 1215 vte pharmacologic prophylaxis contraindicated (fl,oh) (more content not included)... [facility] 12-08-2022 Note HNO ID: [id number] Author: Alyssa Tim APRN.OLGA Service: Neurosurgery Author [...] activity and PT/OT consult -Incentive spirometry, ROMAINE jarrell, SCDraul, Heparin SC to start on POD #2 -Post-operative pain control, Dilaudid ADMISSIONS RN discontinued. Continue Tylenol, Toradol IV, and Robaxin PRN. Start oxycodone every 3 hours PRN and Dilaudid IV PRN. -Check postop XR tomorrow. -Medicine consult for post-operative medical management -Discharge planning, anticipate discharge home in 1-2 more days. Plan of care discussed with Dr Hopper via phone. Medication and Non-Pharmacologic VTE Prophylaxis/Anticoagulants 10/25/21 1215 vte pharmacologic prophylaxis contraindicated (hi,sd) 10/25/21 1215 pneumatic compression stockings (hi,sd) 10/25/21 1215 activity - mobilize patient (hi,sd) VTE Prophylaxis: VTE prophylaxis appropriate SIGNATURE: Alyssa Tim APRN.CNP DATE: December 08, 2022 TIME: 1:50 PM [facility] 12-08-2022 Note HNO ID: [id number] Author: Note, Interface Service: ? Author Type: ? Type: Progress Notes Filed: 12/08/2022 3:59 AM Note Text: Epic Scheduled Downtime: 12/08/2022 1:00:00 AM to 12/08/2022 1:28:00 AM [facility] 12-07-2022 Note HNO ID: [id number] Author: Aaron Noriega AA Service: Anesthesiology Author Type: Cork Slabs Sawyer Type: Anesthesia Procedure Notes Filed: 12/07/2022 8:04 [...] December 07, 2022 TIME: 8:03 AM CSN: [id number] [facility] 12-06-2022 Evaluation note Encounter Date Diagnosis [...] has adequate iron stores. 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 12/07/2022 documented as of this encounter (statuses as of 12/18/2022) [address]27-2023 History of Past illness Narrative* Problem Noted Date Diagnosed Date Resolved Date Secondary hyperparathyroidism 11/21/2022 11/21/2022 11/21/2022 Corneal edema, unspecified 12/10/2013 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 12/07/2022 documented as of this encounter (statuses as of 12/21/2022) [address]27-2023 History of Past illness Narrative* Problem Noted Date Diagnosed Date Resolved Date Secondary hyperparathyroidism 11/21/2022 11/21/2022 11/21/2022 Corneal edema, unspecified 12/10/2013 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 12/07/2022 documented as of this encounter (statuses as of 12/21/2022) [address]27-2023 History of Past illness Narrative* Problem Noted Date Diagnosed Date Resolved Date Secondary hyperparathyroidism 11/21/2022 11/21/2022 11/21/2022 Corneal edema, unspecified 12/10/2013 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 12/07/2022 documented as of this encounter (statuses as of 01/24/2023) [address]27-2023 History of Past illness Narrative* Problem Noted Date Diagnosed Date Resolved Date Secondary hyperparathyroidism 11/21/2022 11/21/2022 11/21/2022 Corneal edema, unspecified 12/10/2013 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 12/07/2022 documented as of this encounter (statuses as of 02/08/2023) [address]-2023 History of Past illness Narrative* Problem Noted Date Diagnosed Date Resolved Date Secondary hyperparathyroidism 11/21/2022 11/21/2022 11/21/2022 Corneal edema, unspecified 12/10/2013 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 12/07/2022 documented as of this encounter (statuses as of 02/09/2023) [facility]20[facility] History of Past illness Narrative* Problem Noted Date Diagnosed Date Resolved Date Secondary hyperparathyroidism 11/21/2022 11/21/2022 11/21/2022 Corneal edema, unspecified 12/10/2013 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 12/07/2022 documented as of this encounter (statuses as of 04/09/2023) [facility]2023 History of Past illness Narrative* Problem Noted Date Diagnosed Date Resolved Date Secondary hyperparathyroidism 11/21/2022 11/21/2022 11/21/2022 Corneal edema, unspecified 12/10/2013 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 12/07/2022 documented as of this encounter (statuses as of 04/18/2023) [facility]2023 History of Past illness Narrative* Problem Noted Date Diagnosed Date Resolved Date Secondary hyperparathyroidism 11/21/2022 11/21/2022 11/21/2022 Corneal edema, unspecified 12/10/2013 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 Given both written and verbal instructions re : Skin prep, wound care, pain management and post op restrictions. Provided to patient: [facility] Surgery Guide, skin prep supplies, Spine Surgery Pre/post op education packet. Yes Reviewed with patient to report to the registration desk for surgery? Yes. Reviewed with the patient that a surgery customer engagement representative will call the working day prior [...] lab work : To be completed at [facility]. Questions answered. Patient verbalizes understanding via teach back. Additional comments : Informed to call with any questions or concerns. Juan Pablo Nova RN [facility] History of Present illness Narrative* Thomas Mathew MD - 11/05/2022 2:20 PM EDT SPINE SURGERY NEW PATIENT This is an in-person visit. PCP: Blayne Isabel MD REFERRING PROVIDER: Jason Miller SUBJECTIVE HISTORY OF PRESENT ILLNESS: Sukhdeep Simental [...] 2. Follow up: for preoperative evaluation SIGNATURE: Thomas Mathew MD PATIENT NAME: Sukhdeep Simental DATE: November 05, 2022 TIME: 2:20 PM PAGER: [facility]23 NoteHNO ID: [id number] Author: Sonya Wilhelm APRN.1ST PRESSMAN [employer] Service: ? Author Type: Nurse Practitioner Type: Progress Notes Filed: 10/16/2022 4:03 PM Note Text: Per Triage: Sukhdeep Simental is a 57 year old male that requests evaluation of lumbar spine. Per review, they have symptoms of LBP Hip pain Leg pain (R) Numbness, Tingling Toes Trouble lifting leg (R) Prev surgery yes L4-S1 fusion in [facility] CMT: Injection Muscle relaxants, Zanaflex Studies (Reports [...] schedule with first available lumbar revision surgeon. [facility]08-22-2023 History of Present illness Narrative* Sonya Wilhelm APRN.1ST PRESSMAN [employer] - 10/16/2022 3:51 PM EDT Per Triage: Sukhdeep Simental is a 57 year old male that requests evaluation of lumbar spine. Per review, they have symptoms of LBP Hip pain Leg pain (R) Numbness, Tingling Toes Trouble lifting leg (R) Prev surgery yes L4-S1 fusion in [facility] CMT: Injection Muscle relaxants, Zanaflex Studies (Reports [...] with first available lumbar revision surgeon. * Lisseth Lopezance P - 09/20/2022 1:17 PM EDT Patient name: Sukhdeep Simental Are you being referred by a [place] for Spine Health Provider or Pain Management Provider at [facility]? No If answer is YES please schedule [...] facility where the MRI/CT/myelogram was completed: [facility] Address: [facility] [place] [address] MRI/CT/myelogram viewable in Epic: No If not, please provide [phone] to fax in imaging reports for review. [...] injections and/or physical therapy was completed Injection [facility] Address: [address] [place] [address] Have you tried any other kinds of [...] of where the surgery was completed: 2019 [facility] Address: [address] [facility] [address] [place] [id number] Additional Comments [phone] (Home Phone) [facility]23 NoteHNO ID: [id number] Author: Adonis Lopez Service: ? Author Type: ? Type: Progress Notes Filed: 10/16/2022 4:03 PM Note Text: Patient name: Sukhdeep Simental Are you being referred by a [place] for Spine Health Provider or Pain Management Provider at [facility]? No If answer is YES please schedule [...] facility where the MRI/CT/myelogram was completed: [facility] Address: [address] [place] [address] MRI/CT/myelogram viewable in Epic: No If not, please provide [phone] to fax in imaging reports for review. 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 He currently takes irbesartan for renal protection. I will continue that. I discussed with him that he may benefit with the SGLT2 inhibitor due to his including Mariely Cramer or [employer]ok[employer]. He reported that he was [...] will continue to monitor without any medications. [employer] Other 01-23-2023 Hospital Discharge instructions Patient Education 03/19/2022 08:17:27 [...] include: ?Spinach. ?Rhubarb. ?Beets. ?Potato chips and somali fries. ?Nuts. If you regularly take a diuretic medicine, make sure to eat at least 1 2 fruits or vegetables high in potassium each day. These include: ?Avocado. ?Banana. ?[place], prune, carrot, or tomato juice. ?Baked potato. [...] Casseroles. Pizza. Lasagna. Frozen meals. Potato chips. [place] Citizen fries. Summary You can reduce your risk [...] 06/08/2011 Document Revised: 06/03/2019 Document Reviewed: 01/22/2017 [employer] Patient Education 2020 [employer]. Follow Up Care 03/15/2022 09:49:40 With:LIDIA JACOBS, Cecelia Jj, URL Address: [facility] [address] [place] [address]- When: Unknown [facility] 01-16-2023 NoteIndication: Renal mass. Comparison: 07/14/2021 [...] Electronically authenticated by: CITLALI GIRON Date: 2022-03-12 18:03[facility]10-21-2022 Evaluation note* Encounter Date Diagnosis Assessment [...] be cultured for infection, gonorrhea, chlamydia, yeast. [employer] Other 08-31-2022 Evaluation note* Encounter Date Diagnosis Assessment Notes [...] paraproteinemia due to the CKD and anemia. [employer] Other 04-01-2022 History of Present illness Narrative* [...] point. Dx: hypoxic respiratory failure * Lucrecia Lake APRN - OLGA - 05/26/2021 12:10 PM EDT Images from the original note were not included. [employer] Note Date: 05/26/2021 Patient name: Sukhdeep Simental Date of admission: 05/24/2021 9:07 AM Date of : 1965 PCP: Blayne Isabel MD Reason for Admission: S/P laparoscopic [...] 2. Ok for d/c from cardiology standpoint. [employer] [phone] * Octavio Mcclellan, - 05/25/2021 5:42 PM EDT Met with [...] Foreman RN - 05/25/2021 8:32 AM EDT [employer] Documentation Note Admission Dx: S/P laparoscopic sleeve [...] on an annual basis Tona Foreman RN [employer] * Sonya Ramírez, DO - 05/25/2021 6:45 [...] Day of Surgery/Procedure As a patient at [facility] you can expect quality medical and nursing care that is centered on your individual needs. Our goal is to make your surgical experience as comfortableas possible . Directions to the Surgery Center [facility] is located at [address] [place] [address]. Please pull into the Emergency parking lot and stop at the fire inspector ojeda. We offer free fire inspector service for all our surgery patients, if you choose not to have fire inspector parking we have additional parking across the street.You will enter the facility under the blue canopy/walkway following the [facility] sign. Please stop at the clinic receptionist desk where you will be checked in by the staff. If you have any questions please call [phone]. Transportation after your procedure. You will need a friend or family member to drive you home after your procedure. Your city bus driver must be18 years of age or [...] You may shave your face or neck. [place] your teeth but do not swallow water. [...] or the day of surgery, please call [phone], or [phone] [facility] [employer] Phone: [phone]) 577-124903-31-2022 Hospital Discharge instructions* Discharge Instr - KAMARI* Jenny Lentz RN - 05/25/2021 5:44 PM EDT PHYSICIAN SIGNATURE: * Additional Instructions* Jenny Lentz, RN - 05/26/2021 Discharge Instructions for Bariatric Surgery You had a Laparoscopic Sleeve Gastrectomy (58096) surgery to treat obesity. Recovery from this [...] scheduled appointment, please call the office at [phone]. Call Your Doctor If Any of the [...] sent through Care Everywhere. * Enoxaparin (Lovenox) (Puerto Rican) * metoprolol (oral/injection) (Puerto Rican) * acetaminophen and oxycodone ([place]ican) documented in this [facility] Phone: [phone]) 206-378403-09-2022 Hospital Discharge instructions* Instructions* Etelvina Ledbetter APRN - 1ST PRESSMAN ON [employer] - 05/03/2021 Pre-operative Instructions Please arrive at [...] list you provided today, ACCORDING TO YOUR IRONWORKER APPRENTICE SHOP, PLEASE HOLD ELIQUIS 3 DAYS PRIOR TO [...] public transportation ALONE is not acceptable. -Your city bus driver must be 18 years of age [...] Day of Surgery/Procedure As a patient at [facility] you can expect quality medical and nursing care that is centered on your individual needs. Our goal is to make your surgical experience as comfortableas possible . Directions to the Surgery Center [facility] is located at [address] [place] [address]. Please pull into the Emergency/Surgery Center parking lot and stop at the [employer] ojeda. We offer free fire inspector service for all our surgery patients, if you choose not to have fire inspector parking we have additional parking across the [...] pharmacy bottles in a zip lock bag. [place] your teeth but do not swallow water. [...] DAY OF your surgery, you may call [phone] documented in this [facility] CenterFlow[facility] Work Phone: evaluation + Plan note Future Appointments Appointment Date:07/16/2022 02:45:00 PM Scheduled Provider:Cecelia MURILLO MD Location:[facility] Appointment Type:URO Office Visit [facility] evaluation + Plan note Future Appointments Appointment Date:02/04/2023 09:15:00 AM Scheduled Provider:Cecelia MURILLO MD Location:[facility] Appointment Type:URO Office Visit General Surgery Agency Evaluation + Plan note Future Appointments Appointment Date:02/03/2024 10:30:00 AM Scheduled Provider:Cecelia MURILLO MD Location:[facility] Appointment Type:URO Office Visit Diagnostic Tests Pending * PSA Total 02/04/23 [facility] evaluation + Plan note Future Appointments Appointment Date:08/13/2025 10:45:00 AM Scheduled Provider:Cecelia MURILLO MD Location:[facility] Appointment Type:URO Office Visit Diagnostic Tests Pending * PSA Total 06/25/25 [facility] evalarqwct note* Diagnosis Pre-op chest exam Pre-operative respiratory examination documented [facility] this encounter [facility] Work Phone: evallmlvqu note* Diagnosis S/P laparoscopic sleeve gastrectomy- Primary documented in this encounter [facility] Phone: evaluation noteNo InformationNort [employer] Other evaluation noteNo assessment information available [facility] Work Phone: Evaluation note* Diagnosis Lumbar adjacent segment disease with spondylolisthesis- Primary Lumbar adjacent segment disease with spondylolisthesis [facility]* Diagnosis Lumbar adjacent segment disease with spondylolisthesis- Primary documented [facility]* Diagnosis Lumbar adjacent segment disease with spondylolisthesis- Primary documented in this encounter [facility] note* Diagnosis Radiculopathy, lumbar region- Primary Thoracic or lumbosacral neuritis or radiculitis, unspecified documented in this [facility]* Diagnosis Onset Date Resolution Status CKD (chronic kidney disease) stage 3, GFR 30-59 ml/min acute [id number] acute Hyperuricemia acute Microscopic hematuria acute Nephrolithiasis acute Secondary hyperparathyroidism acute Type 2 diabetes 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 acute [facility] Work Phone: evaluhvxdi note* Diagnosis Spinal stenosis, lumbar region, with neurogenic claudication- Primary [facility]* Diagnosis Spinal stenosis, lumbar region, with neurogenic claudication- Primary [facility] this [facility]* Diagnosis Spinal stenosis, lumbar region, with neurogenic claudication- Primary [facility] this [facility] Narrative - Reported* Type Description Date [...] GASTRIC SLEEVE 04/2021 Hospitalization History SEE ABOVE [employer] Other [employer] general Narrative - Reported* Type Description Date [...] REPLACEMENT 04/16 22 Hospitalization History SEE ABOVE [employer] Other Hospital course Narrative No data available for this section [facility] Hospital Discharge instructions No data available for this section General Surgery Agency InstructionsNot on filedocumented in this encounter [facility] filedocumented in this encounter [facility] filedocumented in this encounter [facility]Not on filedocumented in this encounter [facility] No data available for this section [facility] reason for referral (narrative)* Diagnostic Procedure Only (Routine) - Pending Review Specialty Diagnoses / Procedures Referred By Enoch luna Referred To Contact XR IMAGING Diagnoses Lumbar adjacent segment disease with spondylolisthesis Procedures XR LUMBAR LIMITED 2V AP/LAT RADEX SPINE LUMBOSACRAL 2/3 VIEWS Singh Morgan PA-C [address] [id number] Xr Imaging [place] [address] Referral ID Status Reason Start Date Expiration Date Visits Requested Visits Authorized [id number] Pending Review Auto-Generat ed Referral 3 01/19/2024 1 1 [facility] for referral (narrative)* Diagnostic Procedure Only (Routine) - Pending Review Specialty Diagnoses / Procedures Referred By Enoch luna Referred To Contact XR IMAGING Diagnoses Radiculopathy, lumbar region Procedures XR LUMBAR LIMITED 2V AP/LAT RADEX SPINE LUMBOSACRAL 2/[place] [address] [place] [address] [place] [address] Referral ID Status Reason Start Date Expiration Date Visits Requested Visits Authorized [id number] Pending Review Auto-Generat ed Referral 05/08/2023 06/06/2024 1 1 [facility] for visit Narrative* Auth/Cert Specialty Diagnoses / Procedures Referred By Contac t Referred To Contact Diagnoses Morbid obesity (HCC) Type II diabetes circulatory disorder causing erectile dysfunction (HCC) Hypertension MORBID OBESITY, TYPE II DIABETES, HYPERTENSION Procedures TN LAP, JUAN RESTRICT PROC, LONGITUDINAL GASTRECTOMY XI ROBOTIC LAPOROSCOPIC GASTRECTOMY SLEEVE, LIVER BIOPSY, EGD- GI SCHEDULED Octavio Mcclellan DO [address] [facility] [address] [place] [address] [employer] [address] [place] [address] Referral ID Status Reason Start Date Expiration Date Visits Re quested Visits Authorized [id number] 1 1 [employer] Phone: Advance Directives No Advanced Directives Records FoundDocuments on File Type Date Recorded Patient Twister Operator Expl anation Advance Directives and Living Will Power of Baked And Graphite Inspector Advance Directive Response Recorded Date/ Time Advance Directives No September 16 2:32pm Documents on File Type Date Recorded Patient Twister Operator Expl anation ACP-Advance Directive ACP-Power of Baked And Graphite Inspector Documents on File Type Date Recorded Patient Twister Operator Expl anation ACP-Advance Directive ACP-Power of Baked And Graphite Inspector Latest Code Status on File Code Status Date Activated Date Inactivated Comments Full Code 05/24/2021 4:29 PM Advance Directive Response Recorded Date/ Time Advance Directives No September 16 3:32pm Summary Purpose Family History No Family History Records Found Relationship Condition Age at Onset Recorded Date/T [...] Fluid retention in legs Alexandro Muhammad MD [address] [place] [address] Maite John MD [address] [place] [address] Scheduling Instructions . Specialty Diagnoses / Procedures Referred By Contac t Referred To Contact [facility] [place] Diagnoses Lumbar adjacent segment disease with spondylolisthesis Procedures CONSULT TO [facility] ([facility]IN) OFFICE/OUTPATIENT [facility] 60-[place] [address] [address] [id number] Referral ID Status Reason Start Date Expiration Date Visits Requested Visits Authorized [id number] Pending Review PCP Requested Referral 11/05/2022 11/05/2023 1 1 Specialty Diagnoses / Procedures Referred By Contac t Referred To Contact [facility] Diagnoses Lumbar adjacent segment disease with spondylolisthesis Procedures CONSULT TO PHYSICAL THERAPY PHYSICAL THERAPY EVALUATION HIGH COMPLEX 45 MINS Riddhi Goss, INSPECTOR OPEN DIE.1ST PR[employer]MAN [employer] [address] [place] [address] [facility] [place] [address] [place] [address] Referral ID Status Reason Start Date Expiration Date Visits Requested Visits Authorized [id number] Pending Review Auto-Generat ed Referral 3 02/07/2024 [...] has been treated in the past by cardiovascular surgical tech as well as his PCP. They contribute [...] file Gets together: Not on file Attends temple service: Not on file Active member of [...] pain of 8 , Dr Silverio revision 1-26-15, he has been back to Dr Silverio and he referred to Dr Muhammad Date: 01/08/2020 2:19 PM Patient: Sukhdeep Simental MR#: [id number] : 1965 Age: 54 y.o. 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 [...] []Chair,[]cane, []bracing Are you followed by a supervisor grinding? [] [x] Name: Are you followed by [...] kidney disease) stage 3, GFR 30-59 ml/min [id number] Hyperuricemia Microscopic hematuria Nephrolithiasis Secondary hyperparathyroidism Type 2 diabetes mellitus with diabetic chronic kidney disease Discharge Instructions * Attachments The following attachments cannot be sent through Care Everywhere. * Back Pain (Puerto Rican) documented in this encounter Additional Source Comments (unrecognized sect ion and content) No Status Records FoundNo Status Records FoundNo Status Records FoundNo Status Records FoundNo Status Records FoundNo Status Records FoundNo Status Records FoundNo Status Records FoundNo Status Records FoundNo Status Records FoundNo Status Records FoundNo Status Records Found INFORMATION SOURCE (unrecogn ized section and content) DATE CREATED AUTHOR 04/18/2019 [facility] DATE CREATED AUTHOR AUTHOR'S ORGANIZ ATION 06/10/2019 [facility] DATE CREATED AUTHOR AUTHOR'S ORGANIZ ATION 07/21/2021 [facility] DATE CREATED AUTHOR AUTHOR'S ORGANIZ ATION 10/22/2021 [facility] DATE CREATED AUTHOR AUTHOR'S ORGANIZ ATION 01/23/2022 [facility] DATE CREATED AUTHOR AUTHOR'S ORGANIZ ATION 08/04/2022 [facility] DATE CREATED AUTHOR AUTHOR'S ORGANIZ ATION 12/12/2022 [facility] DATE CREATED AUTHOR AUTHOR'S ORGANIZ ATION 07/27/2023 [facility] DATE CREATED AUTHOR AUTHOR'S ORGANIZ ATION 02/16/2024 [facility] DATE CREATED AUTHOR AUTHOR'S ORGANIZ ATION 06/19/2024 [facility] DATE CREATED AUTHOR AUTHOR'S ORGANIZ ATION 06/30/2024 [facility] DATE CREATED AUTHOR AUTHOR'S ORGANIZ ATION 08/10/2024 [facility] Reason for Visit (unrecogniz ed section and content) Status Reason Specialty Diagnoses / Procedures Referred By Contact Referred To Contact Pending Review Diagnoses Hx of total knee arthroplasty, right Procedures XR BONE LENGTH STUDY Alexandro Muhammad MD [address] [place] [address] Reason Comments Pain Status Reason Specialty Diagnoses / Procedures Referred By Contact Referred To Contact Closed Cardiovascular Medicine Diagnoses Localized edema Procedures ECHOCARDIOGRAM TN ECHO HEART XTHORACIC,COMPLETE W DOPPLER Suzanne Pruett MD [address] [place] [address] Horace Buc Echocardiograph y [address] [place] [address] Reason Comments Back Pain Lower back pain s/p slip on ice Buttocks Pain Rt buttocks pain Reason Comments New Patient Lumbar spine Specialty Diagnoses / Procedures Referred By Contac t Referred To Contact Neurosurgery / NEUROSURGERY Diagnoses lumbar spine eHealth records requested Procedures REFERRAL TO [facility] FINANCIAL COUNSELOR NEW SPINE SURGICAL TRIAGE Jason Miller [address] [place] [address] [place] [address] [place] [address] Referral ID Status Reason Start Date Expiration Date V isits Requested Visits Authorized [id number] Outside PCP 11/05/2022 01/04/2023 99 99 Reason Comments Medication Problem Reason Comments post op update Reason Comments FMLA Paperwork Reason Comments Opened In Error Reason Comments Post Op Staple removal Specialty Diagnoses / Procedures Referred By Contac t Referred To Contact Neurosurgery / NEUROSURGERY Diagnoses Follow-up examination post op visit Procedures OFFICE/OUTPATIENT ESTABLISHED MOD MDM 30-39 MIN POST OP NEUS/NRES Self Xi Schrader PA-C [address] [place] [id number] Referral ID Status Reason Start Date Expiration Date Visits Re quested Visits Authorized [id number] Closed 12/20/2022 02/24/2023 1 1 Reason Comments Received Outside Medical Records promedi ca Reason Comments Follow Up Specialty Diagnoses / Procedures Referred By Contac t Referred To Contact Neurosurgery / NEUROSURGERY Diagnoses Follow-up exam Follow Up Procedures OFFICE/OUTPATIENT ESTABLISHED MOD MDM 30-39 MIN EST NI PATIENT Self Xi Schrader PATed [address] [place] [address] Referral ID Status Reason Start Date Expiration Date Visits Re quested Visits Authorized [id number] Closed 02/07/2023 02/07/2023 1 1 Reason Comments PT Certification Specialty Diagnoses / Procedures Referred By Contac t Referred To Contact Neurosurgery / NEUROSURGERY Diagnoses Lumbar adjacent segment disease with spondylolisthesis discuss imaging and BWC requirements Procedures PHYS/QHP TELEPHONE EVALUATION 5-10 MIN VIDEO [place] [address] [place] [address] Referral ID Status Reason Start Date Expiration Date V isits Requested Visits Authorized [id number] Denied Patient Cleared - Admin/Chairm an/Director advise to proceed or did not respond 05/08/2023 08/06/2023 1 0 Reason Comments Imaging Disc Reason Comments Appointment Orders Reason Comments Results Reason Comments Back Pain BW Reason Comments Back Pain Reason Comments Appointment Care Teams (unrecognized sec tion and content) [...] November 07, 2023 End: November 07, 2023 Animal Control Officer Relationship Specialty Start Date End Date Blayne Isabel MD [address] [phone] PCP - General Family Medicine 04/11/19 Animal Control Officer Relationship Specialty Start Date End Date Blayne Isabel MD [address] [phone] PCP - General Family Medicine 04/11/19 Animal Control Officer Relationship Specialty Start Date End Date Blayne Isabel MD [address] [phone] PCP - General Family Medicine 04/11/19 Animal Control Officer Relationship Specialty Start Date End Date Blayne Isabel MD [address] [phone] PCP - General Family Medicine 04/11/19 Team Status: Inactive Member Role Status Dates STEPH Sarkar Attending Provider Active Team Status: Inactive Member Role Status Dates PHYSICIAN NO FAMILY Primary Care Provider Active Gianni James Nelson , DO Attending Provider Active Team Status: Inactive Member Role Status Dates Estephanie Lowry TOOL MACHINIST-C Attending Provider Active PHYSICIAN NO FAMILY Primary Care Provider Active Animal Control Officer Relationship Specialty Start Date End Date Blayne Isabel MD PCP - General Family Medicine 11/06/13 Animal Control Officer Relationship Specialty Start Date End Date Blayne Isabel MD PCP - General Family Medicine 11/06/13 Animal Control Officer Relationship Specialty Start Date End Date Blayne Isabel MD PCP - General Family Medicine 11/06/13 Animal Control Officer Relationship Specialty Start Date End Date Blayne Isabel MD PCP - General Family Medicine 11/06/13 Animal Control Officer Relationship Specialty Start Date End Date Blayne Isabel MD PCP - General Family Medicine 11/06/13 Animal Control Officer Relationship Specialty Start Date End Date Blayne Isabel MD PCP - General Family Medicine 11/06/13 Animal Control Officer Relationship Specialty Start Date End Date Blayne Isabel MD PCP - General Family Medicine 11/06/13 Animal Control Officer Relationship Specialty Start Date End Date Blayne Isabel MD PCP - General Family Medicine 11/06/13 Animal Control Officer Relationship Specialty Start Date End Date Blayne Isabel MD PCP - General Family Medicine 11/06/13 Animal Control Officer Relationship Specialty Start Date End Date Blayne Isabel MD PCP - General Family Medicine 11/06/13 Animal Control Officer Relationship Specialty Start Date End Date Blayne Isabel MD PCP - General Family Medicine 11/06/13 Animal Control Officer Relationship Specialty Start Date End Date Blayne Isabel MD PCP - General Family Medicine 11/06/13 Animal Control Officer Relationship Specialty Start Date End Date Blayne Isabel MD PCP - General [facility] Medicine 10/08/18 Animal Control Officer Relationship Specialty Start Date End Date Blayne Isabel MD PCP - General [facility] Medicine 10/08/18 Animal Control Officer Relationship Specialty Start Date End Date Blayne Isabel MD [address] [place] [address] P[address] [facility] 10/08/18 Animal Control Officer Relationship Specialty Start Date End Date Blayne Isabel MD [address] [place] [address] PCP - General [facility] Medicine 10/08/18 Animal Control Officer Relationship Specialty Start Date End Date Blayne Isabel MD PCP - General [facility] Medicine 10/08/18 Animal Control Officer Relationship Specialty Start Date End Date Blayne Isabel MD PCP - General Family Medicine 11/06/13 Ordered Prescriptions (unrec ognized section and content) [...] 80 mg, Oral, DAILY, First dose on Sat05/25/21 at 1815, Until Discontinued 1838 (Given - Provider: Milagros Reich, BRETT) 925 (Given - Provider: Jenny Lentz RN) ceFAZolin [...] volume=10 mL). 2117 (Given - Provider: Giselle Painting, RN) 536 (Given - Provider: Giselle Painting, RN) enoxaparin (LOVENOX) injection 60 mg 60 mg, SubCUTAneous, 2 TIMES DAILY, First dose on Sat05/24/21 at 2100, Until Discontinued, Pharmacy to dose if renal insufficiency present. 2116 (Given - Provider: Giselle Painting RN) 0843 (Given - Provider: Milagros Reich, BRETT)2131 (Given - Provider: Batsheva Carias, RN) 0926 (Given - Provider: Jenny Lentz, RN)2099 (Due) [...] (See Alternative - Provider: Batsheva Carias, RN) 1008 (See Alternative - Provider: Jenny Lentz, RN)2099 (Due) famotidine (PEPCID) tablet 20 mg(Linked Group 1) 20 mg, Oral, 2 TIMES DAILY, First dose on Sat05/24/21 at 2100, Until Discontinued, Post-op 2116 (Given - Provider: Giselle Painting RN) 0839 (Given - Provider: Milagros Reich RN)2131 (Given - Provider: Batsheva Carias, RN) 100 (Given - Provider: Jenny Lentz, RN)2099 (Due) gabapentin (NEURONTIN) capsule 100 mg 100 mg, Oral, 3 TIMES DAILY, First dose on Sat05/24/21 at 1530, Until Discontinued 1529 (Due)2116 (Given - Provider: Giselle Painting RN) 0838 (Not Given - Provider: Milagros Reich RN - Reason: Patient/family refused)1405 (Not Given - Provider: Milgaros Reich RN - Reason: Patient/family refused)2130 (Not Given - Provider: Batsheva Carias, RN - Reason: Patient/family refused) 09 (Not Given - Provider: Jenny Lentz, RN - Reason: Patient/family refused)1400 (Due)2099 (Due) ipratropium-albuterol (DUONEB) nebulizer solution 1 ampule [...] Otoole RCP)1949 (Given - Provider: Yamilka Doyle TELEVISION EQUIPMENT OPERATOR) 0729 (Not Given - Provider: Swapna De Anda TELEVISION EQUIPMENT OPERATOR - Reason: Patient/family refused - Comment: pt stated he wants to sleep)1400 (Due)1999 (Due) metoprolol (LOPRESSOR) injection 5 mg (CANCELED) [...] Reich RN)2132 (Given - Provider: Batsheva Carias, BRETT) 1009 (Given - Provider: Jenny Lentz, BRETT)2100 (Due) scopolamine (TRANSDERM-SCOP) transdermal patch 1 patch [...] or Central Line = 20 mL/lumen, Post-op 2116 (Not Given - Provider: Giselle Painting RN - Reason: IV Fluid Infusing) 0838 (Not Given - Provider: Milagros Reich RN - Reason: IV Fluid Infusing)2132 (Given - Provider: Batsheva Carias RN) 1006 (Not Given - Provider: Jenny Lentz, BRETT - Reason: Loss of IV access)2100 (Due) [...] RN) 0315 (New Bag - Provider: Giselle Painting, RN) 0730 (Stopped - Provider: Jenny Lentz, RN) PRN Medication Order 05/24/2021 05/25/2021 05/26/2021 [...] Intra-op 1351 (Given - Provider: Octavio Mcclellan, DO - Comment: Given at incision sites.) cyclobenzaprine [...] ordered., Post-op 1637 (Given - Provider: Milagros Reich, BRETT)1933 (Given - Provider: Milagros Reich RN) 0015 (Given - Provider: Giselle Painting RN)0841 (Given - Provider: Milagros Reich, BRETT)2137 (Given - Provider: Batsheva Carias, BRETT) midazolam PF (VERSED) injection 1 mg (CANCELED) [...] mg from all sources in 24 hours. 2126 (See Alternative - Provider: Giselle Painting RN) 0422 (See Alternative - Provider: Giselle Painting RN)1148 (See Alternative - Provider: Milagros Reich RN)1839 (See Alternative - Provider: Milagros Reich RN) 0051 (See Alternative - Provider: Alesha Shaikh RN)0755 (See Alternative - Provider: Jenny Lentz, BRETT)1348 (See Alternative - Provider: Jenny Lentz, RN) oxyCODONE-acetaminophen (PERCOCET) 5-325 MG per tablet 2 tablet(Linked Group 2) Mg/kg dosing is based on the oxycodone component., 2 tablet, Oral, EVERY 6 HOURS PRN, Starting on Sat05/24/21 at 1507, Until Discontinued, Pain Severe (7-10), Maximum dose of acetaminophen is 4000 mg from all sources in 24 hours. 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.) sodium chloride flush 0.9 % injection 5-40 [...] or prosecute any alcohol or drug abuse patient.[facility]In the event this information is protected by the Federal Confidentiality of Alcohol and Drug Abuse Patient Records regulations: The Federal rules restrict any use of the information to criminally investigate or prosecute any alcohol or drug abuse patient.[facility] ClinicIn the event this information is protected by the Federal Confidentiality of Alcohol and Drug Abuse Patient Records regulations: The Federal rules restrict any use of the information to criminally investigate or prosecute any alcohol or drug abuse patient.[facility]In the event this information is protected by the Federal Confidentiality of Alcohol and Drug Abuse Patient Records regulations: The Federal rules restrict any use of the information to criminally investigate or prosecute any alcohol or drug abuse patient.[facility]In the event this information is protected by the Federal Confidentiality of Alcohol and Drug Abuse Patient Records regulations: The Federal rules restrict any use of the information to criminally investigate or prosecute any alcohol or drug abuse patient.[facility]In the event this information is protected by the Federal Confidentiality of Alcohol and Drug Abuse Patient Records regulations: The Federal rules restrict any use of the information to criminally investigate or prosecute any alcohol or drug abuse patient.[facility] ClinicIn the event this information is protected by the Federal Confidentiality of Alcohol and Drug Abuse Patient Records regulations: The Federal rules restrict any use of the information to criminally investigate or prosecute any alcohol or drug abuse patient.[facility] ClinicIn the event this information is protected by the Federal Confidentiality of Alcohol and Drug Abuse Patient Records regulations: The Federal rules restrict any use of the information to criminally investigate or prosecute any alcohol or drug abuse patient.[facility]In the event this information is protected by the Federal Confidentiality of Alcohol and Drug Abuse Patient Records regulations: The Federal rules restrict any use of the information to criminally investigate or prosecute any alcohol or drug abuse patient.[facility] ClinicIn the event this information is protected by the Federal Confidentiality of Alcohol and Drug Abuse Patient Records regulations: The Federal rules restrict any use of the information to criminally investigate or prosecute any alcohol or drug abuse patient.[facility] ClinicIn the event this information is protected by the Federal Confidentiality of Alcohol and Drug Abuse Patient Records regulations: The Federal rules restrict any use of the information to criminally investigate or prosecute any alcohol or drug abuse patient.[facility] ClinicIn the event this information is protected by the Federal Confidentiality of Alcohol and Drug Abuse Patient Records regulations: The Federal rules restrict any use of the information to criminally investigate or prosecute any alcohol or drug abuse patient.[facility] ClinicIn the event this information is protected by the Federal Confidentiality of Alcohol and Drug Abuse Patient Records regulations: The Federal rules restrict any use of the information to criminally investigate or prosecute any alcohol or drug abuse patient.[facility] ClinicIn the event this information is protected by the Federal Confidentiality of Alcohol and Drug Abuse Patient Records regulations: The Federal rules restrict any use of the information to criminally investigate or prosecute any alcohol or drug abuse patient.[facility] ClinicIn the event this information is protected by the Federal Confidentiality of Alcohol and Drug Abuse Patient Records regulations: The Federal rules restrict any use of the information to criminally investigate or prosecute any alcohol or drug abuse patient.[facility] ClinicIn the event this information is protected by the Federal Confidentiality of Alcohol and Drug Abuse Patient Records regulations: The Federal rules restrict any use of the information to criminally investigate or prosecute any alcohol or drug abuse patient.[facility] ClinicIn the event this information is protected by the Federal Confidentiality of Alcohol and Drug Abuse Patient Records regulations: The Federal rules restrict any use of the information to criminally investigate or prosecute any alcohol or drug abuse patient.[facility] ClinicIn the event this information is protected by the Federal Confidentiality of Alcohol and Drug Abuse Patient Records regulations: The Federal rules restrict any use of the information to criminally investigate or prosecute any alcohol or drug abuse patient.[facility] ClinicIn the event this information is protected by the Federal Confidentiality of Alcohol and Drug Abuse Patient Records regulations: The Federal rules restrict any use of the information to criminally investigate or prosecute any alcohol or drug abuse patient.[facility] FOR RECORDS PERTAINING TO PATIENTS WHO ARE [...] BE BASED ON THE PRIMARY CLINICAL RECORDS. [facility]. provides no warranty or guarantee of the accuracy or completeness of information in this document.
[2024-11-10 09:20] LABS: Protein Creatinine Ratio Urine 0.18; Total Protein Urine Random 7.8 mg/dL (<=11.9)
[2024-11-10 09:29] LABS: Hematocrit 43.5 % (42.0-54.0); Hemoglobin 14.9 g/dL (14.0-18.0); Mean Corpuscular HGB Conc 34.3 g/dL (29.9-35.2); Mean Corpuscular Hemoglobin 31.3 pg (25.9-34.0); Mean Corpuscular Volume 91.4 fL (80.0-94.0); Platelet Count 188 10^3/uL (150-450); Red Blood Count 4.76 10^6/uL (4.70-6.10); White Blood Count 5.8 10^3/uL (4.0-11.0)
[2024-11-10 10:04] LABS: Glucose Urine UA NEGATIVE (NEGATIVE)
[2024-11-10 10:05] LABS: Albumin Level 3.5 g/dL (3.4-5.0); Anion Gap 13.3; Blood Urea Nitrogen 23.0 mg/dL (7.0-18.0); Calcium 8.9 mg/dL (8.5-10.1); Carbon Dioxide 27.5 mmol/L (21.0-32.0); Chloride 106 mmol/L (98-107); Estimated GFR (African America >60 (>=60 mL/min/1.73m^2); Estimated GFR (Non-African Ame 55 (>=60 mL/min/1.73m^2); Glucose 246 mg/dL (74-106); Magnesium 1.8 mg/dL (1.8-2.4); Potassium 3.8 mmol/L (3.5-5.1); Sodium 143 mmol/L (136-145); Uric Acid 7.5 mg/dL (3.5-7.2)
[2024-11-10 10:11] LABS: Cast Seen? NONE SEEN #/LPF (NONE SEEN); Crystals Seen? None Seen #/HPF (None Seen)
== END 2024-11-10 09:03 | disposition home or self-care (01) ==
LOC: LAB 09:02
PROVIDERS: PCP Family Medicine; Visit Provider Internal Medicine
DX: E78.5 Hyperlipidemia, unspecified (principal); E79.0 Hyperuricemia without signs of inflammatory arthritis and tophaceous disease; N20.0 Calculus of kidney; R31.29 Other microscopic hematuria; N25.81 Secondary hyperparathyroidism of renal origin; I12.9 Hypertensive chronic kidney disease with stage 1 through stage 4 chronic kidney disease, or unspecified chronic kidney disease; E11.22 Type 2 diabetes mellitus with diabetic chronic kidney disease; N18.30 Chronic kidney disease, stage 3 unspecified; R31.0 Gross hematuria
CPT/HCPCS: 36415; 80069; 81001; 82306; 82570; 83735; 83970; 84156; 84550; 85027

== ENCOUNTER 2024-11-11 16:40 | Emergency (ER) | payer OTHER, SELFPAY ==
--- OUTSIDE RECORDS SUMMARY | 2021-07-31 04:10 | XMS_ITS | Continuity of Care Document ---
Author Organization [employer] [facility] [facility] Address [address] [place] [address] Phone Care Team Providers Care Outsole Rounder Name Role Phone Andrés Faye MD Unavailable Unavailab le Allergies, Adverse Reactions, Alerts Substance Reaction Status Criticality IODINE RashRash Active No Information Medications Medication Instructions Dosage Effective Dates (start - stop) Status Comments testosterone cypionate 100 mg/mL intramuscular oil inject 0.5 milliliter by intramuscular route every 4 weeks 50 MG - Active Eliquis 5 mg tablet take 1 tablet by ora l route 2 times every day 5 MG - Active Protonix 40 mg tablet,delayed release take 1 tablet by oral route every day 40 MG - Active Flomax 0.4 mg capsule take 1 capsule by oral route every day 1/2 hour following the same meal each day 0.4 MG - Active spironolactone 100 mg tablet take 1 tablet by oral route every day 100 MG - Active simvastatin 10 mg tablet take 1 tablet by oral route every day in the evening 10 MG - Active indomethacin 50 mg capsule take 1 capsule by oral route 3 times every day with food 50 MG - Active trazodone 50 mg tablet take 0.5 tablet b y oral route every day at bedtime 25 MG - Active Zanaflex 4 mg capsule take 1 capsule by oral route every 6 - 8 hours as needed not to exceed 3 doses in 24 hours 4 MG - Active Avapro 300 mg tablet take 1 tablet by or al route every day 300 MG - Active Cardura 4 mg tablet take 1 tablet by ora l route every day 4 MG - Active Procedures Procedure Date POSTOP FOLLOW-UP VISIT Advance Directives Directive Yes / No Effective Date File Name No Information Encounters Encounter Description Practice Location Reason(s) For Visit Diagnoses Date Provider Providers Copied on Encounter [facility] [facility] [facility], [address], [place], [place], [id number], [place] tel:[phone] [facility] venous insufficiency (chief complaint)Comme nt (chief complaint) Acute saddle pulmonary embolism with acute cor pulmonale Preeti Bowen. [address] [place], [address], [place]. tel:[phone] Referring Provider: Andrés [place], [address] [place], [address]. tel:[phone] Family History Family Member Type Diagnosis Age At Onset No Information Payers Payer name Insurance type Covered constitution party ID Authoriza tion(s) No Information Social History [...] therapy he will need follow-up with a automated manufacturing instructor to clear him from home oxygen use. [...] therapy he will need follow-up with a automated manufacturing instructor to clear him from home oxygen use. [...] oxygen he will need to see a automated manufacturing instructor of to clear whether not he can be taken off home oxygen therapy. I plan to see him back in 6 months. Mental Status Date Cognitive Assessment Orientation - [place] ed to time, place, person, situation. Patient Care Teams Name Effective Dates (start - stop) Status Members No Information
[2024-11-11] VITALS (14 sets, daily range): BP systolic 128–149; BP diastolic 76–95; PULSE 54–72; TEMP 36.6–36.9; O2SAT 93–97; BMI 39.9
--- OUTSIDE RECORDS SUMMARY | 2024-11-11 17:24 | XMS_ITS | Patient Health Record ---
Author Organization [facility] in [place] Address [address] [place] [address] Care Team Providers Care Aircraft Seat Upholsterer Name Role Phone ABELARDO PACKER MD Primary Care Provider [phone] Abelardo Packer Unavailable [phone] Estephanie Nevarez Unavailable [phone] Allergies No Known Allergies Results Component Value Reference Range Notes CBC AUTO DIFF Reviewed date:03/17/2024 01:14:22 PM Interpretation: Performing Lab: Notes/Report: [facility] , White Blood Count 5.9 4.0-11.0 10 [...] 10 3/uL Performing Lab: see note - [facility] LB CRP Reviewed date:03/17/2024 01:14:22 PM Interpretation: Performing Lab: Notes/Report: [facility] , C Reactive Protein <0.50 <=0.50 mg/dL Performing Lab: see note [facility] PROF 14(COMP METB) Reviewed date:03/17/2024 01:14:22 PM Interpretation: Performing Lab: Notes/Report: [facility] , Sodium 143 136-145 mmol/L Potassium 4.6 3.5-5.1 mmol/L Chloride 108 98-107 mmol/L Carbon Dioxide 32.1 21.0-32.0 mmol/L Anion Gap 7.5 Glucose 101 74-106 mg/dL Blood Urea Nitrogen 21.0 7.0-18.0 mg/dL Creatinine 1.35 0.70-1.30 mg/dL Estimated GFR ( Tess >60 >=60 mL/mi n/1.73m 2 Estimated GFR (Non- Cherise 54 >=60 mL/mi n/1.73m 2 BUN Creatinine Ratio 15.6 Calcium 9.2 8.5-10.1 mg/dL Bilirubin Total 0.7 0.2-1.0 mg/dL Aspartate Amino Transferase 20 15-37 U/L Alanine Aminotransferase 33 16-63 U/L Alkaline Phosphatase 70 46-116 U/L Total Protein 7.0 6.4-8.2 g/dL Albumin Level 3.5 3.4-5.0 g/dL Globulin 3.5 Albumin Globulin Ratio 1.0 Performing Lab: see note - [facility] LB XR KNEE RT 3V Reviewed date:03/17/2024 01:14:22 PM Interpretation: Performing Lab: Notes/Report: Source Facility: [facility] [place] [address] XRay Report Signed Patient: SUKHDEEP SIMENTAL MR#: [id number] : 1965 Acct:[id number] Age/Sex: 58 / M ADM Date: 03/17/24 Loc: LAB Attending Dr: Blayne Packer M.D. Ordering Physician: Blayne Packer M.D. Date of Service: 03/17/24 Procedure(s): XR knee RT 3V Accession Number(s): [id number] cc: Blayne Packer M.D. [place] [address] Patient Name: SUKHDEEP SIMENTAL MRN: [id number] date: 1965 Sex: M Assigned Patient Location: LAB Current Patient Location: LAB Accession/Order Number: [id number] Exam Date: 03/17/2024 07:03 Report Date: 03/17/2024 [...] Signed By: 03/17/24 1251 DD/ 1249 TD/TT: Lining Vamper: CT knee RT wo con Reviewed date:04/08/2024 09:52:06 PM Interpretation: Performing Lab: Notes/Report: Source Facility: [facility] [place] [address] CT Scan Report Signed Patient: SUKHDEEP SIMENTAL#: [id number] : 1965 Acct:[id number] Age/Sex: 58 / M ADM Date: 04/07/24 Loc: CT Attending Dr: Blayne Packer M.D. Ordering Physician: Blayne Packer M.D. Date of Service: 04/07/24 Procedure(s): CT knee RT wo con Accession Number(s): [id number] cc: Blayne Packer M.D. [place] [address] Patient Name: SUKHDEEP SIMENTAL MRN: [facility]:[id number] date: 1965 Sex: M Assigned Patient Location: CT Current Patient Location: Accession/Order Number: [id number] Exam Date: 04/07/2024 10:15 Report Date: 04/08/2024 [...] Randall M.D. Signed By: 04/08/24 0537 DD/ TD/TT: Lining Vamper: XR chest 2V Reviewed date:04/11/2024 02:13:28 PM Interpretation: Performing Lab: Notes/Report: Source Facility: [address] [address] XRay Report Signed Patient: SUKHDEEP SIMENTAL MR#: [id number] : 1965 Acct:[id number] Age/Sex: 58 / M ADM Date: 04/10/24 Loc: RAD Attending Dr: Blayne Packer M.D. Ordering Physician: Blayne Packer M.D. Date of Service: 04/10/24 Procedure(s): XR chest 2V Accession Number(s): [id number] cc: Blayne Packer M.D. [place] [address] Patient Name: SUKHDEEP SIMENTAL MRN: [facility]:[id number] date: 1965 Sex: M Assigned Patient Location: [facility] Current Patient Location: Accession/Order Number: [id number] Exam Date: 04/10/2024 11:30 Report Date: 04/11/2024 [...] M.D. Signed By: 04/11/24827 DD/ 5 TD/TT: Lining Vamper: Testosterone Reviewed date:11/24/2023 11:48:26 AM Interpretation: Performing Lab: Notes/Report: [facility] , Testosterone 628 264-916 ng/dL Adult male reference interval is based on a population of healthy nonobese males (BMI <30) between 19 and 39 years old. Travison, et.al. [facility] [place],102;6469-9902. PMID: [id number]. Performed at: [address] [id number] [employer]: Logan Martinez PhD, Phone: [phone] Performing Lab: see note LC - [facility] LB Testosterone Reviewed date:12/04/2023 08:36:27 PM Interpretation: Performing Lab: Notes/Report: [facility] , Testosterone 556 264-916 ng/dL Adult male reference interval is based on a population of healthy nonobese males (BMI <30) between 19 and 39 years old. Travison, et.al. [facility] [place],102;0509-8859. PMID: [id number]. Performed at: [address] [id number] [employer]: Logan Martinez PhD, Phone: [phone] Performing Lab: see note - [facility] LB XR abdomen 1V Reviewed date:07/16/2024 08:12:11 PM Interpretation: Performing Lab: Notes/Report: Source Facility: [place] [address] XRay Report Signed Patient: SUKHDEEP SIMENTAL MR#: [id number] : 1965 Acct:[id number] Age/Sex: 58 / M ADM Date: 07/16/24 Loc: US Attending Dr: Spenser Murillo M.D. Ordering Physician: Spenser Murillo M.D. Date of Service: 07/16/24 Procedure(s): XR abdomen 1V Accession Number(s): [id number] cc: Blayne Packer M.D.; Spenser Murillo M.D. [place] [address] Patient Name: SUKHDEEP SIMENTAL MRN: [id number] date: 1965 Sex: M Assigned Patient Location: US Current Patient Location: Accession/Order Number: [id number] Exam Date: 07/16/2024 10:07 Report Date: 07/16/2024 10:13 At the request of: SPENSER MURILLO MD Procedure: XR abdomen 1V SINGLE VIEW ABDOMEN CLINICAL DATA: Follow-up of kidney stones COMPARISON: Ultrasound 07/16/2024 and lumbar plain films 10/01/2023 Erect views of the abdomen and pelvis were obtained. There is air and stool in the colon. There is also small bowel air without disproportionate distention. No free air or significant fluid levels are noted. No soft tissue masses are identified. On one of the images, there is question of a subtle 8 mm stone at the lower pole of the right kidney. No other suspect renal calculi are seen. There is slight dextroscoliotic curvature. Postoperative changes are present at the spine. XR/XR abdomen 1V IMPRESSION: NONSPECIFIC BOWEL GAS PATTERN. POTENTIAL RIGHT NEPHROLITHIASIS. Impression dictated by: Erlinda Sadler M.D. 07/16/2024 10:13 AM Dictation Location: [place] [address] Electronically authenticated by: [id number] Y Date: 07/16/2024 10:13 Dictated By: Erlinda Sadler M.D. Signed By: 07/16/24 1015 DD/ 1013 TD/TT: Lining Vamper: US renal BI Reviewed date:07/16/2024 08:12:11 PM Interpretation: Performing Lab: Notes/Report: Source Facility: [place] [address] [place] [address] Ultrasound Report Signed Patient: SUKHDEEP SIMENTAL MR#: [id number] : 1965 Acct:[id number] Age/Sex: 58 / M ADM Date: 07/16/24 Loc: US Attending Dr: Spenser Murillo M.D. Ordering Physician: Spenser Murillo M.D. Date of Service: 07/16/24 Procedure(s): US renal BI Accession Number(s): [id number] cc: Blayne Packer M.D.; Spenser Murillo M.D. [place] [id number] Patient Name: SUKHDEEP SIMENTAL MRN: [id number] date: 1965 Sex: M Assigned Patient Location: US Current Patient Location: US Accession/Order Number: [id number] Exam Date: 07/16/2024 10:03 Report Date: 07/16/2024 10:07 At the request of: SPENSER MURILLO MD Procedure: US renal BI BILATERAL RENAL AND BLADDER ULTRASOUND CLINICAL HISTORY: N28.89 Other specified disorders of kidney and ureter. Kidney stones. COMPARISON: CT 02/01/2023 Estimation of renal size is approximately 7.6 cm on the right and 11.2 cm on the left. No hydronephrosis is identified. At least one suspected renal stone is present at the lower pole of the right kidney measuring up to 8 mm in size. There is also a cyst at the inferior pole on that side measuring 3.1 x 3.0 x 3.0 cm . There is no perinephric fluid. The urinary bladder is partially distended with a volume of 65 mL No obvious contour or intraluminal abnormalities are seen. US/US renal BI IMPRESSION: RIGHT RENAL CYST AND NEPHROLITHIASIS. NO OBSTRUCTIVE UROPATHY. Impression dictated by: Erlinda Sadler M.D. 07/16/2024 10:07 AM Dictation Location: [place] [address] Electronically authenticated by: [id number] Y Date: 07/16/2024 10:07 Dictated By: Erlinda Sadler M.D. Signed By: 07/16/24 1009 DD/ 1007 TD/TT: Lining Vamper: MAGNESIUM Reviewed date:11/10/2024 05:18:02 PM Interpretation: Performing Lab: Notes/Report: [facility] , Magnesium 1.8 1.8-2.4 mg/dL Performing Lab: see note ML - [facility] LB RENAL FUNCTION PANEL Reviewed date:11/10/2024 05:18:02 PM Interpretation: Performing Lab: Notes/Report: [facility] , Sodium 143 136-145 mmol/L Potassium 3.8 3.5-5.1 mmol/L Chloride 106 98-107 mmol/L Carbon Dioxide 27.5 21.0-32.0 mmol/L Anion Gap 13.3 Glucose 246 74-106 mg/dL Blood Urea Nitrogen 23.0 7.0-18.0 mg/dL Creatinine 1.32 0.70-1.30 mg/dL Estimated GFR ( Tess >60 >=60 mL/mi n/1.73m 2 Estimated GFR (Non- Cherise 55 >=60 mL/mi n/1.73m 2 BUN Creatinine Ratio 17.4 Calcium 8.9 8.5-10.1 mg/dL Phosphorus 2.6 2.6-4.7 mg/dL Albumin Level 3.5 3.4-5.0 g/dL Performing Lab: see note ML - [facility] UA RANDOM W or MICROSCOPIC Reviewed date:11/10/2024 05:18:02 PM Interpretation: Performing Lab: Notes/Report: [facility] , Color Urine LT. YELLOW YELLOW Clarity Urine CLEAR CLEAR Specific Bridger Urine 1.015 1.005-1.025 pH Urine 5.5 5.0-9.0 Protein Urine NEGATIVE NEG/TRACE mg/dL Glucose Urine UA NEGATIVE NEGATIVE mg/dL Bilirubin Urine NEGATIVE NEGATIVE Ketones Urine NEGATIVE NEGATIVE mg/dL Blood Urine MODERATE NEGATIVE Nitrite Urine NEGATIVE NEGATIVE Urobilinogen Urine 0.2 0.2-1.0 EU/dL Leukocyte Esterase Urine NEGATIVE NEGATIVE WBC Urine 0-2 NONE SEEN #/HPF RBC Urine 5-10 0-2 #/HPF Bacteria Urine NONE SEEN NONE SEEN #/HPF Mucus Urine NONE SEEN NONE SEEN Squamous Epithelial Cell Urine NONE SEEN NONE/RARE #/LPF Crystals Seen? None Seen None Seen #/HPF Cast Seen? NONE SEEN NONE SEEN #/LPF Performing Lab: see note ML - [facility] LB URIC ACID SERUM Reviewed date:11/10/2024 05:18:02 PM Interpretation: Performing Lab: Notes/Report: [facility] , Uric Acid 7.5 3.5-7.2 mg/dL Performing Lab: see note ML - [facility] LB VITAMIN D 25 [place] Reviewed date:11/10/2024 05:18:02 PM Interpretation: Performing Lab: Notes/Report: [facility] , Vitamin D 44.6 <20 ng/mL Vit D deficient 20-<30 ng/mL Vit D insufficient 30-100 ng/mL Vit D sufficient >100 ng/mL Potential Toxicity Performing Lab: see note ML - [facility] CBC no Diff (Hemogram) Reviewed date:11/10/2024 05:18:02 PM Interpretation: Performing Lab: Notes/Report: [facility] , White Blood Count 5.8 4.0-11.0 10 3/uL Red Blood Count 4.76 4.70-6.10 10 6/uL Hemoglobin 14.9 14.0-18.0 g/dL Hematocrit 43.5 42.0-54.0 % Mean Corpuscular Volume 91.4 80.0-94.0 fL Mean Corpuscular Hemoglobin 31.3 25.9-34.0 pg Mean Corpuscular HGB Conc 34.3 29.9-35.2 g/dL Red Cell Distribution Width 12.1 11.0-15.0 % Platelet Count 188 150-450 10 3/uL Mean Platelet Volume 8.9 9.5-13.5 fL Performing Lab: see note [facility] PTH, Intact Reviewed date:11/11/2024 12:33:51 PM Interpretation: Performing Lab: Notes/Report: [facility] , PTH, Intact 50 15-65 pg/mL Performed at: - [facility] [address] [id number] [employer]: Logan Martinez PhD, Phone: [phone] Performing Lab: see note - [facility] LB URINE T PROTEIN CREAT RATIO Reviewed date:11/10/2024 05:18:02 PM Interpretation: Performing Lab: Notes/Report: [facility] , Total Protein Urine Random 7.8 <=11.9 mg/dL Creatinine Urine Random 44.26 20.00-300.00 mg/d L Protein Creatinine Ratio Urine 0.18 Performing Lab: see note - [facility] LB Erythrocyte Sedimentation Ra te Reviewed date:03/17/2024 01:14:22 PM Interpretation: Performing Lab: Notes/Report: [facility] , Erythrocyte Sedimentation Rate 8 <=20 mm/hr Performing Lab: see note - [facility] LB Reason For Referral No Information Medications Medication SIG (Take, Route, Frequency, Duration) Notes Start Date End Date Status traZODone HCl 150 mg TAKE 1 TABLET BY MO UT AT BEDTIME; Duration: 30 Active Triamcinolone Acetonide 0.1 % 1 application Externally Twice a day; Duration: 30 07/31/2023 Active Ketoconazole 2 % 1 application Manager Of Radiology ally bid; Duration: 14 days 04/03/2024 Active Omeprazole 20 mg TAKE 1 CAPSULE BY [facility] TWICE DAILY 30 MINUTES BEFORE morning meal; Duration: 30 Active Adipex-P 37.5 MG 1 tablet before lo kfast Orally Once a day 08/14/2024 Active Reglan 10 MG 1 tablet before meal s Orally Twice a day; Duration: 90 days Active BD Luer-Meli Syringe 22G X 1-1/2 3 ML Use 1 (ONE) syringe as directed once a week for use with testosterone; Duration: 90 days Active Simvastatin 10 mg TAKE 1 TABLET BY JUAN CARLOS ONCE DAILY; Duration: 90 Active Bumetanide 1 mg TAKE 1 TABLET BY JUAN CARLOS ONCE DAILY; Duration: 30 Active Tamsulosin HCl 0.4 mg TAKE 1 CAPSULE BY MOUTH DAILY; Duration: 30 Active Doxazosin Mesylate 4 mg TAKE 1 TABLET BY MOUTH ONCE DAILY; Duration: 30 Active Doxepin HCl 10 mg TAKE 1 TO 2 CAPSULES BY MOUTH EVERY 6 HOURS NEEDED FOR 30 DAYS; Duration: 30 Active tiZANidine HCl 4 mg TAKE 2 TABLETS BY [facility] AT BEDTIME; Duration: 30 Active Irbesartan 300 mg TAKE 1/2 (ONE-HALF) OF A TABLET BY MOUTH DAILY; Duration: 60 Active predniSONE 20 MG 3 tablets Orally Onc e a day; Duration: 5 days 09/21/2024 Active oxyCODONE-Acetaminophen 10-325 MG TAKE 1 TABLET BY MOUTH EVERY 6 HOURS NEEDED *MUST LAST 30 DAYS*; Duration: 30 10/13/2024 Active Testosterone Cypionate 200 mg/mL INJECT 3/4 mls INTRAMUSCULARLY EVERY 2 (TWO) weeks *MUST LAST 30 DAYS*; Duration: 30 10/05/2024 Active Social History Tobacco Use: Social History [...] Problem Status W/U Status Risk Notes Problem Testicular hypofunction (467848819) Testicular hypofunction (E29.1) Active confirmed Problem Lumbosacral spondylosis without myelopathy (17916482) Spondylosis without myelopathy or radiculopathy, 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M47.816) Active confirmed Problem Degeneration of lumbar intervertebral disc (67944464) Other intervertebral disc degeneration, 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M51.36) Active confirmed Problem Hypertension (37077058) Hypertension (I10) Active confirmed Problem Edema (93426839) Edema (R60.9) Active confirmed Problem Pain of right knee region (finding) (505683900455284) Knee pain, right (M25.561) Active confirmed Problem Cellulitis (802427896) Cellulitis (L03.90) Active confirmed Problem Shingles (2537484) Shingles (B02.9) Active confirmed Problem Acute cor pulmonale co-occurrent and due to saddle embolus of pulmonary artery (disorder) (1826799251854678 9) Acute saddle pulmonary embolism with acute cor pulmonale (I26.02) Active confirmed Problem Acute diarrhea (790163611) Acute diarrhea (R19.7) Active confirmed Problem Acute bronchiolitis (9576801) Acute bronchiolitis (J21.9) Active confirmed Problem Pneumococcal pneumonia (400687857) Left lower lobe consolidation (J18.1) Active confirmed Vital Signs Temperature 98.9 degrees Fahrenheit 04/03/2024 Blood pressure diastolic 80 mm Hg 09/14/2024 Height 69 in 09/14/2024 Blood pressure systolic 128 mm Hg 09/14/2024 Weight 270.4 lbs 09/14/2024 BMI 39.93 kg/m2 09/14/2024 Encounters Encounter Location Date Provider Diagnosis [facility] [address] [place] [address] 09/04/2024 Abelardo [facility] [address] [place] [address] 09/21/2024 Abelardo Packer [facility] [address] [place] [address] 10/05/2024 [facility] [address] [place] [address] 10/13/[address] [facility] [address] [facility] [place] [address] 11/10/[address] [facility] [address] [facility] [place] [address] 11/11/2024 Abelardo [facility] [address] [facility] [place] [address] 04/11/[address] [facility] [address] [facility] [place] [address] 04/27/[address] [facility] [address] [facility] [place] [address] 05/15/[address] [facility] [address] [facility] [place] [address] 07/28/2024 Abelardo Packer [facility] [address] [facility] [address] 08/07/[address] [facility] [address] [facility] [place] [address] 08/18/2024 Abelardo Sarmady [facility] [address] [facility] [place] [address] 01/30/2024 Abelardo Hoy Spondylosis without myelopathy or radiculopathy, lumbar region M47.816 [facility] [address] [facility] [place] [address] 02/24/2024 Abelardo Hoy [facility] [address] [facility] [place] [address] 03/03/2024 Abelardo Hoy Spondylosis without myelopathy or radiculopathy, lumbar region M47.816 [facility] [address] [facility] [place] [address] 03/17/2024 Abelardo Hoy Knee pain, right M25.561 [facility] [address] [facility] [place] [address] 04/06/2024 Abelardo Hoy Spondylosis without myelopathy or radiculopathy, lumbar region M47.816 and Acute non-recurrent sinusitis, unspecified location J01.90 [facility] [address] [place] [facility] [place] [place] [address] 04/08/2024 [address] Cough R05.9 [facility] [address] [place] [facility] [place] [address] 11/24/2023 Abelardo Hoy [facility] [address] [place] [facility] [address] 12/03/[address] [facility] [address] [place] [facility] [place] [address] 12/04/[address] [facility] [address] [place] [place] [place] [address] 12/23/2023 Estephanie Geri Spondylosis without myelopathy or radiculopathy, lumbar region M47.816 [facility] [address] [place] [facility] [place] [address] 12/31/[address] [facility] [address] [place] [facility] [place] [address] 01/09/[address] [facility] [address] [place] [place] [place] [address] 11/21/2023 Abelardo Hoy 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 [facility] [address] [place] [place] [place] [address] 06/15/2024 Abelardo Hoy Spondylosis without myelopathy or radiculopathy, lumbar region M47.816 [facility] [address] [place] [place] [address] 07/15/2024 Abelardo Hoy Edema R60.9 ; Hypertension I10 and Encounter for medication review Z79.899 [facility] [address] [place] [place] [place] [address] 08/14/2024 [address]ema R60.9 [facility] [address] [place] [place] [place] [address] 09/14/2024 Abelardo Hoy Hypertension I10 and Edema R60.9 [place] [address] [place] [place] [address] 11/25/2023 Abelardo Hoy 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 and Spondylosis without myelopathy or radiculopathy, lumbar region M47.816 [facility] [address] [place] [place] [address] 12/31/2023 Abelardo Hoy Other intervertebral disc degeneration, lumbar region M51.36 [facility] [address] [place] [place] [address] 02/07/2024 Abelardo Hoy Other intervertebral disc degeneration, lumbar region M51.36 [facility] [address] [place] [place] [place] [address] 05/15/2024 Abelardo Hoy Knee pain, right M25.561 [facility] [address] [place] [place] [place] [address] 03/16/2024 Abelardo Hoy Knee pain, right M25.561 [facility] [address] [place] [place] [address] 04/03/2024 Abelardo Hoy Acute non-recurrent sinusitis, unspecified location J01.90 and Nasal congestion R09.81 Assessments Encounter Date Diagnosis (ICD Code) Assessment Notes Treatment Notes Treatment Clinical Notes Section Notes 11/25/2023 Testicular hypofunction (ICD-10 - E29.1) level [...] vaporizer to help keep the drainage moist. Csdt-dbt-wvxshhb Nasal Saline may help the stuffy and runny nose. Use Ibuprofen and or Tylenol as needed for fever, chills, body aches or pain. Children 5 years old should not be given kalr-yab-mrkqyhq cough and cold medications such as guaifenesin and dextromethorphan. If you're over age 5, you may try asho-nvx-pordtdb cold medications such as guaifenesin and dextromethorphan, [...] symptoms do not improve within 3-5 days 11/21/2023 Testicular hypofunction (ICD-10 - E29.1) 12/23/2023 Spondylosis without myelopathy or radiculopathy, 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ICD-10 - M47.816) 01/30/2024 Spondylosis without myelopathy or radiculopathy, 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ICD-10 - M47.816) 03/03/2024 Spondylosis without myelopathy or radiculopathy, 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ICD-10 - M47.816) 03/17/2024 Knee pain, right (ICD-10 - M25.561) 04/06/2024 Spondylosis without myelopathy or radiculopathy, 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ICD-10 - M47.816) 08/14/2024 Edema (ICD-10 - R60.9) 09/14/2024 Hypertension (ICD-10 - I10) inc water pil to bid for 09/14/2024 Edema (ICD-10 - R60.9) 05/15/2024 Knee pain, right (ICD-10 - M25.561) see n Dr Hutton - nurse [phone] feel like infection coming back 06/15/2024 Spondylosis without myelopathy or radiculopathy, 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ICD-10 - M47.816) 07/15/2024 Edema (ICD-10 - R60.9) 07/15/2024 Hypertension (ICD-10 - I10) 04/08/2024 Cough (ICD-10 - R05.9) 07/15/2024 Encounter for medication review (ICD-10 - Z79.899) 04/06/2024 Acute non-recurrent sinusitis, unspecified location (ICD-10 [...] 03/16/2024 SPUTUM GRAM STAIN 12/24/2022 TESTOSTERONE, TOTAL 11/25/2023 TESTOSTERONE, TOTAL 11/21/2023 THYROID PANEL (T4/TSH/FREE T3) 4 Insurance Providers Payer Name Payer Address Payer Phone Subscriber Number Group Number Insured Name Patient Relationship to Insured Coverage Start Date Coverage End Date [employer] [address] [address] [place] [address] [id number] Lena Simental Spouse - patient is the [...] Apnea, sleep G47.30 Surgical History Surgery Date(Month/Year) gastric sleeve 05/16 Lumbar and sacral fusion 12/07/22 knee surgery 04/19 ankle surgery 05/2014 Hospitalization History Reason Date(Month/Year) see above
--- OUTSIDE RECORDS SUMMARY | 2024-11-11 17:24 | XMS_ITS | Clinical Summary ---
Author Organization [facility] Address [address], [address] [place] [address] Care Team Providers Care Stringing Machine Operator Name Role Phone Derick Packer MD Primary Care Provider [phone] Allergies Active Allergy Reactions Criticality Noted Date [...] with BMI of 50.0-59.9, adult 12/28/2020 07/26/2021 Family History Medical History Relation Name Comments [...] 08/18/2021 3:30 PM EDT Plan of Treatment Not on file Medical Devices Implanted Type Area Outsole Beveler Device Identifier Shelf Expiration Date Model / Serial / Lot Joint Component Joint Component Bilateral: Knee Screw/Plate/N ail/Luis Screw/Plate/N ail/Luis N/A: Spine Thoracic Insurance [employer] Advance Directives * Full Code (Latest Code Status on File) Date Activated Date Inactivated Comments 07/16/2021 9:42 AM 07/18/2021 8:50 PM * Full Code Date Activated Date Inactivated Comments 05/24/2021 4:29 PM 05/26/2021 4:33 PM Care Teams Stringing Machine Operator Relationship Specialty Start Date End Date Derick Packer MD [address] [place] [address] PCP - General Family Medicine 04/11/19
--- OUTSIDE RECORDS SUMMARY | 2024-11-11 17:24 | XMS_ITS | Encounter Summary ---
Author Organization [facility] tem Address [facility]-[id number] [address] [place] [address] Care Team Providers Care Curriculum Director Name Role Phone Derick Packer MD Primary Care Provider [phone] Encounter Details Date Type Department Care Team (Late st Contact Info) Description 04/03/[address] [facility] [address] [place] [phone] Cherelle Oleary RN Social History Tobacco Use [...] call office in April 2022 to have [facility] forms completed as needed. documented in this encounter Plan of Treatment Not on file documented as of this encounter Visit Diagnoses Not on filedocumented in this encounter Care Teams Curriculum Director Relationship Specialty Start Date End Date Derick Packer MD PCP - General Family Medicine 10/08/18 documented as of this encounter
--- OUTSIDE RECORDS SUMMARY | 2024-11-11 17:24 | XMS_ITS | Clinical Summary ---
Author Organization [facility] tem Address [facility]-[id number] [address] [place] [address] Care Team Providers Care Machine Operator Packaging Name Role Phone Derick Packer MD Primary Care Provider [phone] Allergies Active Allergy Reactions Criticality Noted Date [...] (08/17/2021): Added automatically from request for surgery [id number] Degeneration of lumbosacral intervertebral disc 03/28/2021 Overview (03/28/2021): Added automatically from request for surgery [id number] Other specified inflammatory spondylopathies, candi mbar region 03/28/2021 Overview (03/28/2021): Added automatically from request for surgery [id number] Family History Medical History Relation Name Comments [...] 02/13/2024 Medical Devices Not on file Insurance [facility] [employer] Care Teams Machine Operator Packaging Relationship Specialty Start Date End Date Derick Packer MD PCP - General Family Medicine 10/08/18
--- OUTSIDE RECORDS SUMMARY | 2024-11-11 17:24 | XMS_ITS | Clinical Summary ---
Author Organization [facility] Healthcare Address [address] [place] [address] Care Team Providers Care Medical Stenographer Name Role Phone Unavailable Primary Care Provider [...]
--- OUTSIDE RECORDS SUMMARY | 2024-11-11 17:24 | XMS_ITS | Clinical Summary ---
Author Organization [facility] Address [address] [place] [id number] Care Team Providers Care Surveyor Mine Name Role Phone Derick Packer MD Primary Care Provider [phone] Allergies No known active allergies Medications doxazosin [...] is lower risk 9 11/05/2022 Data from: https://www.neighborhoodatlas.medicine.[email or web address].edu/. Last address used for calculation Paula ARTHUR [...] PCP Team Chronic Dise ase Visit 09/10/1981 Depression Screening 09/10/1981 HIV Screening 09/10/1981 Hepatitis C Screening 09/10/1981 LDL Cholesterol 09/10/1981 DTaP,Tdap,Td Vaccine (1 - Tdap) 09/10/1982 Pneumococcal Vaccine: 50+ (1 of 2 - PCV) 09/10/1982 CT Colonography 09/10/2008 Cologuard (FIT-DNA) 09/10/2008 Colonoscopy 09/10/2008 Colorectal Cancer Screening 09/10/2008 Fecal Occult Blood 09/10/2008 Sigmoidoscopy 09/10/2008 Shingrix Vaccine (1 of 2) 09/10/2013 HbA1C 05/22/2023 11/21/2022, 10/0 08/2021, 07/17/2021, Additional history exists RSV Vaccine (1 - Risk 60-74 years 1-dose series) 2023 Serum Creatinine 12/12/2023 12/11/2022, , 12/09/2022, Additional history exists Influenza Vaccine (#1) 2024 05/08/2023 Prostate Cancer Screening Discussion 01/24/2027 01/24/2022 Medical Devices Implanted Type Area Stage Rigger Device Identifier Shelf Expiration Date Model / Serial / Lot Vitoss Ba2x Bioactive Bone Graft Substitute 5.0cub Cm Implanted:Qty: 1 on 12/07/[address] [facility] Implant N/A: Spine - Lumbar [place] 08/23/2023 [id number] / / [id number] Cage Tritanium 6d [id number] Spinal Sterile Latex Free Lumbar Posterior - [id number] Implanted:Qty: 1 on 12/07/[address] [facility] Implant N/A: Spine - Lumbar [place] SPINE 08/11/2025 [id number] / / [id number] Cage Tritanium 6d [id number] Spinal Sterile Latex Free Lumbar Posterior - [id number] Implanted:Qty: 1 on 12/07/[address] [facility] Implant N/A: Spine - Lumbar [place] SPINE 12/20/2026 [id number] / / [id number] Screw Darby 3 Titanium Set Merlyn Spine - [id number] Implanted:Qty: 10 on 12/07/[address] [facility] Implant N/A: Spine - Lumbar [place] [employer]INE [id number] / / Screw Darby 3 Gloria 6.5mm 45mm Bone Polyaxial Nonsterile Spine - [id number] Implanted:Qty: 2 on 12/07/[address] [facility] Screw N/A: Spine - Lumbar [place] SPINE [id number] / / Screw Darby 3 Gloria 6.5mm 50mm Bone Polyaxial Nonsterile Spine - [id number] Implanted:Qty: 2 on 12/07/[address] [facility] Screw N/A: Spine - Lumbar [place] SPINE [id number] / / Procedures Procedure Name Priority Date/Time Associated Diagnosis Comments BASIC METABOLIC PANEL Routine 12/11/2022 4:50 AM EDT HEMOGLOBIN A1C Routine 11/21/2022 11:39 AM EDT Pre-op examination from Last 3 Months or Most Recently Relevant to Health Maintenance Results * (ABNORMAL) BASIC METABOLIC PNL (12/11/2022 4:50 AM EDT) [facility] Glucose 98 74 - 99 mg/dL 12/11/2022 6:30 AM EDT [facility] Comment: The [place] Diabetes Association (ADA) provides guidance for cutoff [...] Standards of Medical Care in Diabetes 2016, [place] Diabetes Association. Diabetes Care. 2016.39(Suppl 1). BUN 13 9 - 24 mg/dL 12/11/2022 6:30 AM EDT [facility] Creatinine 1.17 0.73 - 1.22 mg/dL 12/11/2022 6:30 AM EDT [facility] Sodium 143 136 - 144 mmol/L 12/11/2022 6:30 AM EDT [facility] Potassium 4.8 3.7 - 5.1 mmol/L 12/11/2022 6:30 AM EDT [facility] Chloride 106(H) 97 - 105 mmol/L 12/11/2022 6:30 AM EDT [facility] CO2 29 22 - 30 mmol/L 12/11/2022 6:30 AM EDT [facility] Anion Gap 8(L) 9 - 18 mmol/L 12/11/2022 6:30 AM EDT [facility] Calcium, Total 8.7 8.5 - 10.2 mg/dL 12/11/2022 6:30 AM EDT [facility] Estimated Glomerular Filtration Rate 72 >=60 mL/min/1. 73m 12/11/2022 6:30 AM EDT [facility] Comment:Estimated Glomerular Filtration Rate (eGFR) is [...] 12/11/2022 5:59 AM EDT us Alyssa Archual MUSIC SOUND LIGHT TECHNICIAN.[facility] Final Res ult [facility] [address] [place] [address], * HGB A1C (11/21/2022 11:39 AM EDT) Hemoglobin A1C 5.5 4.3 - 5.6 % 11/22/2022 6:07 AM EDT [facility] Comment:[place] Diabetes As sociation guidelines indicate that patients with HgbA1c in the range 5.7-6.4% are at increased risk for development of diabetes, and intervention by lifestyle modification may be beneficial. HgbA1c greater or equal to 6.5% is considered diagnostic of diabetes. Estimated Average Glucose 111 mg/dL 11/22/2022 6:07 AM EDT [facility] Comment:eAG: (Estimated aver age glucose) is a calculated value from HgbA1c and is graphic art sales representative of the average blood glucose level in the last 2-3 month period. Blood BLOOD SPECIMEN / Unknown Venipuncture / Unknown 11/21/2022 11:39 AM EDT 11/21/2022 11:39 AM EDT us Brenton Anton MUSIC SOUND LIGHT TECHNICIAN[facility] Final Re sult [facility] [address] [place] [address], [place] from Last 3 Months or Most Recently Relevant to Health Maintenance [facility] [address] [id number] Care Teams Surveyor Mine Relationship Specialty Start Date End Date Derick Packer MD PCP - General Family Medicine 11/06/13
--- OUTSIDE RECORDS SUMMARY | 2024-11-11 17:24 | XMS_ITS | Encounter Summary ---
Author Organization [facility] tem Address [facility]-[id number] [address] [place] [address] Care Team Providers Care Counter Professional Name Role Phone Derick Packer MD Primary Care Provider [phone] Encounter Details Date Type Department Care Team (Late st Contact Info) Description 05/09/2022 Telephone [facility] [address] [place] [phone] Cherelle Oleary RN Social History Tobacco Use [...] on filedocumented in this encounter Care Teams Counter Professional Relationship Specialty Start Date End Date Derick Packer MD PCP - General Family Medicine 10/08/18 documented as of this encounter
--- OUTSIDE RECORDS SUMMARY | 2024-11-11 17:24 | XMS_ITS | Patient Health Record ---
Author Organization [facility] Address [address] [place] [address] Care Team Providers Care Resistance Brazer Name Role Phone Rakesh Quiñones Unavailable [phone] UNASSIGNED, UNASSIGNED Unavailable Unavailab le Allergies Allergen [...] Problem Status W/U Status Risk Notes Problem 692983556 Spinal stenosis, lumbosacral region (M48.07) Active confirmed Problem Neurogenic claudication (957295899) Spinal stenosis of lumbar region with neurogenic claudication (M48.062) Active confirmed Plan Of Treatment No Information Insurance Providers Payer Name Payer Address Payer Phone Subscriber Number Group Number Insured Name Patient Relationship to Insured Coverage Start Date Coverage End Date [facility] [employer] [facility] (Health Mgmt) [address] [place] [phone] SUKHDEEP SIMENTAL Self - patient is the insured 0 Medical (General) History Medical History History ICD Code Diabetes: Yes High Blood Pressure: Yes Anxiety: Yes Sleep apnea: Yes CPAP Machine: Yes Do you use the CPAP machine? No Kidney trouble Yes, [place] Stones Drug Allergies: Yes Surgical History Surgery Date(Month/Year) ANKLE SPURS 2017 L4-S1 laminectomy, PSF 06/2019 abdominal procedure 04/2020 Kidney stone removal 02/2020 BILATERAL KNEE ARTHOPLASTY [phone] Hospitalization History Reason Date(Month/Year) L-SPINE BULGING DISC 2019
--- OUTSIDE RECORDS SUMMARY | 2024-11-11 17:24 | XMS_ITS | Encounter Summary ---
Author Organization [facility] tem Address [facility]-[id number] [address] [place] [address] Care Team Providers Care Regulator Tester Name Role Phone Derick Packer MD Primary Care Provider [phone] Encounter Details Date Type Department Care Team (Late st Contact Info) Description 02/20/2022 Telephone [facility] [address] [place] [phone] Cherelle Oleary RN Social History Tobacco Use [...] on filedocumented in this encounter Care Teams Regulator Tester Relationship Specialty Start Date End Date Derick Packer MD PCP - General Family Medicine 10/08/18 documented as of this encounter
--- OUTSIDE RECORDS SUMMARY | 2024-11-11 17:38 | XMS_ITS | CCD ---
Author Organization [facility] CliniSyoh Care Team Providers Care .Net Developer Name Role Phone Blayne Isabel Primary Care Provider SUZANNE ACEVEDO Attending Unavailable BLAYNE ISABEL Primary Care Unavailable ARSENIO BHATTI Referring Unavailable BLAYNE ISABEL Primary Care Unavailable ARSENIO BHATTI Referring Unavailable BLAYNE ISABEL Primary Care Unavailable ROSE SOTELO Attending Unavailable BLAYNE ISABEL Primary Care Unavailable BLAYNE ISABEL Consulting Unavailable Blayne Isabel Primary Care Provider [phone] Blayne Isabel Primary Care Provider [phone] Octavio Becker Attending Provider [phone] Blayne Isabel MD Primary Care Provider [phone] OCTAVIO MCCLELLAN Referring Unavailable BLAYNE ISABEL Primary [...] Oumou Weinstein Unavailable STEPH Lowry Attending Provider [phone] Estephanie Lowry Unavailable STEPH Lowry Attending Provider NO FAMILY, PHYSICIAN Primary Care Provider Unava ilable DO Gianni Nelson Attending Provider Estehpanie Lowry Admitting Unavailable Estephanie Lowry Attending Unavailable [...] Unavailable Blayne Isabel MD Primary Care Provider [phone] [facility] Attending Unavailable QUINCY THOMAS Admitting Unavailable [...] Unavailable Blayne Isabel MD Primary Care Provider [phone] PAYTON HELM Referring Unavailable PAYTON HELM Attending Unavailable PAYTON HELM Attending Unavailable Cecelia MURILLO Attending Unavailable MURILLOCecelia R Attending Unavailable MURILLO, Cecelia R Attending Unavailable MURILLO, Cecelia R Attending Unavailable Unavailable Unavailable Unavailable Allergies Allergy Classification Reported Allergen(s) Allergy Type Date of Onset Reaction(s) Facility (16 sources) Povidone-Iodine; Translations: [povidone iodine topical] Drug Allergy 9 [facility] (11 sources) Povidone-Iodine; Translations: [povidone-iodine] Drug Allergy 9 [facility] (9 sources) soap; Translations: [soap] Allergy to substance 9 [facility] (14 sources) Chlorhexidine; Translations: [CHLORHEXIDINE] Drug Allergy 1 [facility] (14 sources) Iodine; Translations: [IODINE] Drug Allergy 9 [facility] Work Phone: (15 sources) Loratadine; Translations: [loratadine] Drug Allergy 2 [facility] (1 source) Chlorhexidine Drug Allergy [facility] Repository (1 source) Povidone-Iodine; Translations: [Betadine] Drug Allergy [facility] Repository Medications Current Medications Medication Drug Class(es) Dates Sig (Normalized) Sig (Original) acetaminophen 500 mg oral tablet (14 sources) Start: 01-02-2022 End: 01-10-2023 take 2 tablets by mouth every eight hours acetaminophen (TYLENOL EXTRA STRENGTH) 500 mg tablet TAKE TWO TABLETS BY MOUTH EVERY 8 HOURS 01/02/2022 Active Comment on above: Take 2 tablets by mo txh every 8 hours. acetaminophen 325 mg / [...] carlos th every 4 hours as needed. [id number] 200 actuat albuterol 0.09 mg/actuat metered dose [...] Start: 01-05-2021 take 1 capsule by mo [facility] every week vitamin D (ERGOCALCIFEROL) 1.25 MG (22946 UT) CAPS capsule Indications: Vitamin D deficiency [...] on above: Take 1 capsule by mo [facility] twice daily. 2 ml ondansetron 2 mg/ml [...] Comment on above: Take 1 tablet by [facility] every 3 hours as needed for [...] 07, 2023 12:00am take 1 capsule by [facility] once daily in the morning phentermine (ADIPEX-P) [...] Repeat number: 1 take 2 tablets by [facility] in the morning pioglitazone (ACTOS) 15 mg [...] Comment on above: Take 1 capsule by [facility] once daily. temazepam 15 mg oral capsule [...] Start: 08-21-2018 take 2 tablets by mo [facility] once daily tiZANidine (ZANAFLEX) 4 mg tablet [...] on above: Use 1 Drop in the [facility] eye once daily. 72 hr [...] on above: Use [facility]. 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 Normal [facility] Urology Office/Clinic Noteon 08-07-2024 Urology Office/Clinic Note Urology Office/Clinic Note Chief Complaint 18 month f/u with SÁNCHEZ and KUB HPI Staff 58 year old male patient here for follow up with KUB/SÁNCHEZ. KUB/SÁNCHEZ done 07/16/24 @ [facility]. Previous dx: renal mass, kidney stone, prostate [...] acquired) Seen in consult on 06/29/21 at [facility]. 11/14/21 - BUN 19.0. Crea 1.62. eGFR [...] Information LIDIA JACOBS, Cecelia Jj, URL [address] [place] [address]- Additional Instructions: 1 year w/ KUB and [...] BMI 40.0- (more content not included)... Normal [facility] Comment on above: Result Comment: Elec tronically Signed By: Cecelia MURILLO MD\.br\Date and Time Signed: 08/07/24 12:00 EDT\.br\Electronically Co-Signed By: Jacqueline Calero\.br\Date and Time Co-Signed: 08/07/24 11:53 EDT\.br\Electronically Co-Signed By: Jacqueline Calero\.br\Date and Time Co-Signed: 08/07/24 11:56 EDT\.br\Electronically Co-Signed By: Jacqueline Calero\.br\Date and Time Co-Signed: 08/07/24 11:57 EDT [facility] [place] [facility] [facility] [place] [facility] [place] [facility] June 22, 2024 [place] [address] : 1965 Dear Mr. Sukhdeep Simental, You [...] any future cancellations. Sincerely, [place] [address] ext.[phone] [facility] Follow-Upon 06-17-2024 Follow-Up [id number] Sukhdeep Simental F 1965 M Date Provider Department Center 06/17/2024 PAYTON GRIFFITH MP ORTHO MPORTHO Family History Problem Relation Age of Onset Dementia Mother Esophageal cancer Father Alcohol abuse Father Family Status - Relation Status Age at Mother Alive Father Level of Service:80019 [place] OFFICE/OUTPATIENT ESTABLISHED SF MDM 10 MIN [facility] 36on 05-18-2024 36 Will need to see the patient as soon as possible repeat x-rays and blood test to further evaluate as he has had previous infections and has high risk for recurrent infections and 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 PT WILL COME IN TODAY [facility] BASIC METABOLIC PANELon 03-2 Anion gap [Moles/Vol] 12 mmol/L Normal 7-20 [facility] Comment on above: Performed By: #### L [id number] #### [facility] ([employer] [address] [place] [address] Calcium [Mass/Vol] 9.9 mg/dL Normal 8.6-10.3 [facility] Comment on above: Performed By: #### L [id number] #### [facility] ([employer]) [address] [place] [address] Chloride [Moles/Vol] 105 mmol/L Normal 98-107 [facility] Comment on above: Performed By: #### L [id number] #### [facility] ([employer]) [address] [place] [address] CO2 [Moles/Vol] 27 mmol/L Normal 21-31 [facility] Comment on above: Performed By: #### L [id number] #### [facility] ([facility]) [address] [place] [address] Creatinine [Mass/Vol] 1.42 mg/dL High 0.70-1.30 [facility] Comment on above: Performed By: #### L [id number] #### [facility] ([facility]) [address] [place] [address] GLOMERULAR FILTRATION RATE ML/MIN/1.73 SQ M.PREDICTED 56.6 mL/min/1.73m*2 Low >60.0 [facility] Comment on above: Result Comment: [facility]???s estimated glomerular filtration rate (eGFR) will no [...] individuals. Performed By: #### L [id number] #### [facility] ([facility]) [address] [place] [address] Glucose [Mass/Vol] 102 mg/dL High 70-100 [facility] Comment on above: Performed By: #### L [id number] #### [facility] ([facility]) [address] [place] [address] Potassium [Moles/Vol] 4.4 mmol/L Normal 3.5-5.1 [facility] Comment on above: Performed By: #### L [id number] #### [facility] ([facility] [address] [place] [address] Sodium [Moles/Vol] 140 mmol/L Normal 136-145 [facility] Comment on above: Performed By: #### L [id number] #### [facility] ([facility]) [address] [place] [address] Urea nitrogen [Mass/Vol] 23 mg/dL Normal 7-25 [facility] Comment on above: Performed By: #### L [id number] #### [facility] ([facility]) [address] [facility] [place] [address] UREA NITROGEN/CREATININE (MASS RATIO) IN SER/PLAS 16.2 Normal [facility] Comment on above: Performed By: #### L [id number] #### [facility] ([facility]) [address] [place] [address] C-REACTIVE PROTEINon 025 C REACTIVE PROTEIN (MG/L) IN SER/PLAS <5.4 Normal <=5.0 [facility] Comment on above: Result Comment: Test ing performed using a new methodology, turbidimetry. Normal ranges have been updated. Old normal range was <8 mg/L. Performed By: #### L [id number] #### [facility] ([facility]) [address] [place] [address] CBC WITH AUTO DIFFERENTIALon 05-18-2024 Basophils (Bld) [#/Vol] 0.06 10*3/uL Normal 0.00-0.20 [facility] Comment on above: Performed By: #### L [id number] #### [facility] ([facility] [address] [place] [address] Basophils/100 WBC (Bld) 0.7 % Normal 0.0-1.0 [facility] Comment on above: Performed By: #### L [id number] #### [facility] ([facility] [address] [place] [address] Eosinophils (Bld) [#/Vol] 0.15 10*3/uL Normal 0.00-0.50 [facility] Comment on above: Performed By: #### L [id number] #### [facility] ([facility] [address] [place] [address] Eosinophils/100 WBC (Bld) 1.8 % Normal 0.0-6.0 [facility] Comment on above: Performed By: #### L [id number] #### [facility] ([facility]) [address] [place] [address] Erythrocyte distribution width (RBC) [Ratio] 11.9 % Normal 11.5-15.0 [facility] Comment on above: Performed By: #### L [id number] #### [facility] ([facility]) [address] [place] [address] ERYTHROCYTE MEAN CORPUSCULAR HEMOGLOBIN CONCENTRATION (G/DL) BY AUTOMATED 34.5 g/dL Normal 32.0-35.0 [facility] Comment on above: Performed By: #### L [id number] #### [facility] ([facility]) [address] [place] [address] Hematocrit (Bld) [Volume fraction] 47.8 % Normal 39.0-50.0 [facility] Comment on above: Performed By: #### L [id number] #### [facility] ([facility] [address] [place] [address] Hemoglobin (Bld) [Mass/Vol] 16.5 g/dL Normal 13.0-17.0 [facility] Comment on above: Performed By: #### L [id number] #### [facility] ([facility]) [address] [place] [address] Immature granulocytes (Bld) [#/Vol] 0.03 10*3/uL Normal 0.00-0.20 [facility] Comment on above: Performed By: #### L [id number] #### [facility] ([facility]) [address] [place] [address] Immature granulocytes/100 WBC (Bld) 0.4 % Normal 0.0-1.0 [facility] Comment on above: Performed By: #### L [id number] #### [facility] ([facility]) [address] [place] [address] Lymphocytes (Bld) [#/Vol] 1.80 10*3/uL Normal 1.20-4.00 [facility] Comment on above: Performed By: #### L [id number] #### [facility] ([facility]) [address] [place] [address] Lymphocytes/100 WBC (Bld) 21.8 % Normal 20.0-45.0 [facility] Comment on above: Performed By: #### L [id number] #### [facility] ([facility]) [address] [place] [address] MCH (RBC) [Entitic mass] 31.5 pg Normal 27.0-33.0 [facility] Comment on above: Performed By: #### L [id number] #### [facility] ([facility]) [address] [place] [address] MCV (RBC) [Entitic vol] 91.4 fL Normal 82.0-98.0 [facility] Comment on above: Performed By: #### L [id number] #### [facility] ([facility]) [address] [place] [address] Monocytes (Bld) [#/Vol] 0.66 10*3/uL Normal 0.10-1.00 [facility] Comment on above: Performed By: #### L [id number] #### [facility] ([facility]) [address] [place] [address] Monocytes/100 WBC (Bld) 8.0 % Normal 5.0-12.0 [facility] Comment on above: Performed By: #### L [id number] #### [facility] ([facility]) [address] [place] [address] Neutrophils (Bld) [#/Vol] 5.56 10*3/uL Normal 1.60-7.60 [facility] Comment on above: Performed By: #### L [id number] #### [facility] ([facility] [address] [place] [address] Neutrophils/100 WBC (Bld) 67.3 % Normal 40.0-72.0 [facility] Comment on above: Performed By: #### L [id number] #### [facility] ([facility] [address] [place] [address] NRBC (PER 100 WBCS) BY AUTOMATED COUNT 0.0 % Normal 0 [facility] Comment on above: Performed By: #### L [id number] #### [facility] ([facility]) [address] [place] [address] PLATELETS (10*3/UL) IN BLOOD AUTOMATED COUNT 247 10*3/uL Normal 150-400 [facility] Comment on above: Performed By: #### L [id number] #### [facility] ([facility]) [address] [place] [address] RBC (Bld) [#/Vol] 5.23 10*6/uL Normal 4.20-5.70 [facility] Comment on above: Performed By: #### L [id number] #### [facility] ([facility]) [address] [place] [address] WBC (Bld) [#/Vol] 8.26 10*3/uL Normal 4.00-10.60 [facility] Comment on above: Performed By: #### L [id number] #### [facility] ([facility]) [address] [place] [address] Follow-Upon 05-18-2024 Follow-Up [id number] Sukhdeep Simental 1965 M Date Provider Department Center 05/18/2024 PAYTON GRIFFITH MP ORTHO MPOKATHIA Family History Problem Relation Age of Onset Dementia Mother Esophageal cancer Father Alcohol abuse Father Family Status - Relation Status Age at Mother Alive Father Level of Service:74278 [place] OFFICE/OUTPATIENT ESTABLISHED MOD MDM 30 MIN () Reason for Visit and Comments: Pain [136] - Swelling starts 2 months ago, started swimming about a month ago and it only made his knee worse Edema [[id number]] - Swelling starts 2 months ago, started swimming about a month ago and it only made his knee worse Normal [facility] Labon 05-18-2024 Lab [id number] Sukhdeep Simental 1965 M Date Provider Department Center 05/18/2024 2244-[facility] MP LAB RESOURCE MP DRAW Medical Pavi Family History Problem Relation Age of Onset Dementia Mother Esophageal cancer Father Alcohol abuse Father Family Status - Relation Status Age at Mother Alive Father Normal [facility] SEDIMENTATION RATEon 025 SEDIMENTATION RATE, ERYTHROCYTE 5 mm/hr Normal <20 [facility] Comment on above: Performed By: #### L [id number] #### [facility] ([facility]) [address] [place] [address] 36on 05-15-2024 36 Patient feels like h is infection is back. Right knee swelling and pain but no fever. He was seen by Dr. Isabel and he put him on oral antibiotics and wanted Dr. Helm know in case he wants him to come in and be exam. Normal [facility] Erythrocyte distribution wid th Auto (RBC) [Ratio]on 10-29-2023 Erythrocyte distribution width (RBC) [Ratio] 11.5 % 11.0-15.0 [facility] Estimated glomerular filtrat ion rate (GFR) non- Americanon 10-29-2023 GFR/1.73 sq M.predicted among non-blacks MDRD (S/P/Bld) [Vol rate/Area] 51 mL/min/{1.73_m2} Low >=60 [facility] Hematocrit Auto (Bld) [Volum e fraction]on 10-29-2023 Hematocrit (Bld) [Volume fraction] 47.7 % 42.0-54.0 [facility] Hemoglobin [Mass/volume] in Bloodon 10-29-2023 Hemoglobin (Bld) [Mass/Vol] 16.8 g/dL 14.0-18.0 [facility] Laboratory - Chemistry and C hemistry - challengeon 10-29-2023 Albumin [Mass/Vol] 3.7 g/dL 3.4-5.0 [facility] Calcium [Mass/Vol] 9.0 mg/dL 8.5-10.1 [facility] Chloride [Moles/Vol] 103 mmol/L 98-107 [facility] CO2 [Moles/Vol] 26.8 mmol/L 21.0-32.0 [facility] Creatinine [Mass/Vol] 1.41 mg/dL High 0.70-1.30 [facility] GFR/1.73 sq M.predicted MDRD (S/P/Bld) [Vol rate/Area] mL/min/{1.73_m2} >=60 [facility] Glucose [Mass/Vol] 167 mg/dL High 74-106 [facility] Magnesium [Mass/Vol] 1.9 mg/dL 1.8-2.4 [facility] Potassium [Moles/Vol] 3.9 mmol/L 3.5-5.1 [facility] Sodium [Moles/Vol] 141 mmol/L 136-145 [facility] Urate [Mass/Vol] 7.9 mg/dL High 3.5-7.2 [facility] Urea nitrogen [Mass/Vol] 26.0 mg/dL High 7.0-18.0 [facility] Urea nitrogen/Creatinine [Mass ratio] 18.4 mg/mg [facility] Bilirubin Ql (U) Negative NEGATIVE [facility] Glucose (U) [Mass/Vol] Negative NEGATIVE [facility] Ketones Ql (U) Negative NEGATIVE [facility] pH (U) 6.0 [pH] 5.0-9.0 [facility] Specific gravity (U) [Rel density] 1.015 1.005-1.025 [facility] Urobilinogen Qn (U) 0.2 {Dahiana'U}/dL 0.2-1.0 [facility] Laboratory - Specimen inform ationon 10-29-2023 Appearance (U) CLEAR CLEAR [facility] Color (U) LT. YELLOW YELLOW [facility] Laboratory - Urinalysison Hyaline casts LM Ql (Urine sed) RARE [facility] Leukocyte esterase Test strip Ql (U) Negative NEGATIVE [facility] Mucus Ql (Urine sed) NONE SEEN NONE SEEN [facility] Nitrite Ql (U) Negative NEGATIVE [facility] Protein Ql (U) Negative NEG/TRACE [facility] Leukocytes [#/volume] correc romaine for nucleated erythrocytes in Blood by Automated counon 10-29-2023 WBC corrected for nucl RBC Auto (Bld) [#/Vol] 6.9 10 3/uL 4.0-11.0 [facility] MCH Auto (RBC) [Entitic mass ]on 10-29-2023 MCH (RBC) [Entitic mass] 32.2 pg 25.9-34.0 [facility] MCHC Auto (RBC) [Mass/Vol]on 10-29-2023 MCHC (RBC) [Mass/Vol] 35.2 g/dL 29.9-35.2 [facility] MCV Auto (RBC) [Entitic vol] on 10-29-2023 MCV (RBC) [Entitic vol] 91.6 fL 80.0-94.0 [facility] No Panel Informationon 10-28 25-Hydroxy Vitamin D Total 40.8 ng/mL [facility] Comment on above: <20 ng/mL Vit D defi cient20-<30 ng/mL Vit D [id number] ng/mL Vit D sufficient>100 ng/mL Potential Toxicity Parathyroid Hormone (Intact) 91 pg/mL Abnormal 15-65 [facility] Comment on above: Performed at: - [facility] [address] [id number] Director: Logan Martinez PhD, Phone: [phone] Phosphorus Level 2.3 mg/dL Low 2.6-4.7 [facility] Urine Bacteria NONE SEEN #/HPF NONE SEEN [facility] Urine Occult Blood Negative NEGATIVE [facility] Urine Other Casts SEEN #/LPF Abnormal NONE SEEN [facility] Urine Random Creatinine 15.18 mg/dL Low 20.00-300.00 [facility] Urine Random Total Protein <6.0 mg/dL <=11.9 [facility] Urine RBC NONE SEEN #/HPF 0-2 [facility] Urine Squamous Epithelial Cells FEW #/LPF Abnormal NONE/RARE [facility] Urine WBC NONE SEEN #/HPF NONE SEEN [facility] Platelet mean volume Auto (B ld) [Entitic vol]on 10-29-2023 Platelet mean volume (Bld) [Entitic vol] 8.9 fL Low 9.5-13.5 [facility] Platelets Auto (Bld) [#/Vol] on 10-29-2023 Platelets (Bld) [#/Vol] 236 10 3/uL 150-450 [facility] RBC Auto (Bld) [#/Vol]on RBC (Bld) [#/Vol] 5.21 10 6/uL 4.70-6.10 [facility] Serum or plasma anion gap de terminationon 10-29-2023 Anion gap [Moles/Vol] 15.1 mmol/L [facility] CNPNon 10-07-2023 CNPN Telephone (NEADFV) SUKHDEEP SIMENTAL ([id number]) 1965 M Date Time Provider Department 10/07/23 [facility] During your visit today, we recorded the [...] Encounter Status:Closed by ARIANNA [facility]HAMMAD [facility] C[facility]N Tele[facility] (Gamblino[facility]) SUKHDEEP SIMENTAL ([id number]) 1965 M Date Time Provider Department 10/04/23 THOM[facility] MATHEW [facility] During your visit today, we recorded the [...] Status:Closed by JUAN PABLO NOVA on 10/04/23 [facility] SUKHDEEP SIMENTAL ([id number]) 1965 M Date Time Provider Department 07/30/23 THOMAS MATHEW [facility] During your visit today, we recorded the following information about you: Arianna Little 07/30/2023 11:51 AM Signed Pt phoned regarding upcoming visit 10/06 [employer] appt. Pt unable to manage virtual visit asking for telephone visit. Pt asking how far in advance to do X-Ray. Pt will have X-Ray done locally at [facility]. Please call and advise Pt phone # [phone] Ekaterina Rondon 07/30/2023 1:07 PM Signed Have sent XR Lumbar order to [facility] fax # [phone] as requested from patient. Riddhi Goss APRN.[facility] 07/30/2023 3:25 PM Signed Called Sukhdeep, [...] Encounter Status:Closed by RIDDHI GOSS on 07/30/23 [facility] CNPN Telephone (NIQ) SUKHDEEP SIMENTAL ([id number]) 1965 M Date Time Provider Department 07/23/23 THOMAS MATHEW During your visit today, we recorded the following information about you: Brenda Alex 07/23/2023 9:38 AM Signed Received request from [employer] needing more info, in [employer] for review. Juan Pablo Nova RN 07/23/2023 [...] Status:Closed by JUAN PABLO NOVA on 07/26/23 [facility] 04-16-2023 CNPN Telephone (NIQ) SUKHDEEP SIMENTAL ([id number]) 1965 M Date Time Provider Department 04/16/23 THOMAS MATHEW [facility] During your visit today, we recorded the following information about you: Moriah Ferguson 04/16/2023 1:27 PM Signed Received imaging disc by mail from [facility]. Disc contains CT Lumbar spine [...] Status:Closed by MORIAH FERGUSON on 06/06/23 [facility] [place] 04-10-2023 HARIKA Telephone (NIQ) SUKHDEEP SIMENTAL ([id number]) 1965 M Date Time Provider Department 04/10/23 [...] Status:Closed by JUAN PABLO NOVA on 04/18/23 [facility] [place] 04-09-2023 CNPN Telephone (NIQ) SUKHDEEP SIMENTAL ([id number]) 1965 M Date Time Provider Department 04/09/23 THOMAS MAHTEW During your visit today, we recorded the following information about you: Brenda Alex 04/09/2023 10:[address] Lumbar Spine Report from [facility], in epic to review. Brittany [...] Encounter Status:Closed by ROBSON LAZO on 04/09/23 [facility] 02-11-2023 [facility] Telephone (NIQ) SUKHDEEP SIMENTAL ([id number]) 1965 M Date Time Provider Department 02/11/23 THOMAS MATHEW During your visit today, we recorded the following information about you: Moriah Ferguson 02/11/2023 1:36 PM Signed Received fax from [employer] requesting office notes, C-9, and [employer] 14. See fax scanned in patient's chart. Juan Pablo oNva RN 02/13/2023 3:14 PM Signed Information faxed to number requested. Faxed verification received. MariamVincent jiménezbrigido Rojo 03/06/2023 3:20 PM Signed Received updated notes from [facility] dated 03/05/23. Scanned into [employer]. Allergies As of Date: 02/11/2023 (No Known Allergies) Date Reviewed: 02/07/2023 Reviewed by: Brittany Ratliff - Fully Assessed Reason for Visit: 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 [...] 3 chronic kidney disease (HCC) [N18.30] 12/07/2022 ICRO (iron deficiency anemia) [D50.9] 12/07/2022 HLD (hyperlipidemia) [E78.5] 12/07/2022 BPH (benign prostatic hyperplasia) [N40.0] 12/07/2022 Obesity, Class III, BMI >= 40 [E66.01] 12/08/2022 Encounter Status:Closed by XI SCHRADER on 12/21/22 [facility] 12-18-2022 CNPN Telephone (PODCCP) SUKHDEEP SIMENTAL ([id number]) 1965 M Date Time Provider Department 12/18/22 BLAYNE ISABEL PODCCP During your visit today, we recorded the following information about you: Amaury Carreon 12/18/2022 1:52 PM Signed PATIENT INFORMATION Record ID: [id number] Patient Name: [facility]: [facility]: [facility] Attending: Thomas Mathew Center: [facility] INSTRUCTIONS SN to remind patient of next upcoming appointment date, time, location SN TRANSFER TO [facility] SURVEY INFORMATION Medical/Nurse Exchange Specialist: Amaury Calderón 1. Your discharge instructions are [...] Reason for Visit: Follow Up Phone Call [6998] Cmt: All Clear Prescriptions as of 12/18/2022 [...] Encounter Status:Closed by AMAURY CARREON [facility] OLGA Tele[facility] (NIQ) SUKHDEEP SIMENTAL ([id number]) 1965 M Date Time Provider Department 12/14/22 [...] via voice mail, as requested. Scanned into [employer]. Allergies As of Date: 12/14/2022 (No Known Allergies) Date Reviewed: 12/10/2022 Reviewed by: Yoli Guerin RN - Fully Assessed Reason for Visit: FMLA Paperwork [4187] Prescriptions as of 12/17/2022 - docusate sodium [...] Status:Closed by ABBY HERNANDEZ on 12/17/22 Normal [facility] Basic metabolic 2000 panelon 12-11-2022 Anion gap [Moles/Vol] 8 mmol/L Low 9-18 [facility] Comment on above: Order Comment: Speci men Type: BLOOD SPECIMEN Ordering Facility: [facility] Address: [address] [place] [address] Performed By: #### 2 4321-2 #### [facility] CLIA [id number] [address] [place] [address] [place] Calcium [Mass/Vol] 8.7 mg/dL Normal 8.5-10.2 [facility] Comment on above: Order Comment: Speci men Type: BLOOD SPECIMEN Ordering Facility: [facility] Address: [address] [place] [address] Performed By: #### 2 4321-2 #### [facility] CLIA [id number] [address] [place] [address] [place] Chloride [Moles/Vol] 106 mmol/L High 97-105 [facility] Comment on above: Order Comment: Speci men Type: BLOOD SPECIMEN Ordering Facility: [facility] Address: [address] [place] [address] Performed By: #### 2 4321-2 #### [facility] CLIA [id number] [address] [place] [address] [place] CO2 [Moles/Vol] 29 mmol/L Normal 22-30 [facility] Comment on above: Order Comment: Speci men Type: BLOOD SPECIMEN Ordering Facility: [facility] Address: [address] [place] [address] Performed By: #### 2 4321-2 #### [facility] CLIA [id number] [address] [place] [address] [place] Creatinine [Mass/Vol] 1.17 mg/dL Normal 0.73-1.22 [facility] Comment on above: Order Comment: Speci men Type: BLOOD SPECIMEN Ordering Facility: [facility] Address: [address] [place] [address] Performed By: #### 2 4321-2 #### [facility] CLIA [id number] [address] [place] [address] [place] Creatinine and Glomerular filtration rate.predicted panel (S/P/Bld) 72 mL/min/1.73m??? Normal >=60 [facility] Comment on above: Order Comment: Shahrzad dumont Type: BLOOD SPECIMEN Ordering Facility: [facility] Address: [address] [place] [address] Result Comment: Leah mated Glomerular Filtration Rate [...] GFR. Performed By: #### 2 4321-2 #### [facility] CLIA [id number] [address] [place] [address] [place] Glucose [Mass/Vol] 98 mg/dL Normal 74-99 [facility] Comment on above: Order Comment: Shahrzad dumont Type: BLOOD SPECIMEN Ordering Facility: [facility] Address: [address] [place] [address] Result Comment: The [place] Diabetes Association (ADA) provides guidance for cutoff [...] Standards of Medical Care in Diabetes 2016, [place] [employer]. Diabetes Care. 2016.39(Suppl 1). Performed By: #### 2 4321-2 #### [facility] CLIA [id number] [address] [place], [place] [address] [place] Potassium [Moles/Vol] 4.8 mmol/L Normal 3.7-5.1 [facility] Comment on above: Order Comment: Speci men Type: BLOOD SPECIMEN Ordering Facility: [facility] Address: [address] [place] [address] Performed By: #### 2 4321-2 #### [facility] CLIA [id number] [address] [place], [place] [address] [facility] Sodium [Moles/Vol] 143 mmol/L Normal 136-144 [facility] Comment on above: Order Comment: Speci men Type: BLOOD SPECIMEN Ordering Facility: [facility] Address: [address] [place] [address] Performed By: #### 2 4321-2 #### [facility] CLIA [id number] [address] [place], [place] [address] [facility] Urea nitrogen [Mass/Vol] 13 mg/dL Normal 9-24 [facility] Comment on above: Order Comment: Speci men Type: BLOOD SPECIMEN Ordering Facility: [facility] Address: [address] [place] [address] Performed By: #### 2 4321-2 #### [facility] CLIA [id number] [address] [place], [place] [address] [facility] CASE MANAGEMon 12-11-2022 CASE MANAGEM HNO ID: [id number] Author: Gloria Toro RN Service: ? Author Type: Registered Nurse Type: Care Mgt Progress Note Filed: 12/11/2022 3:26 PM Note Text: CARE MANAGEMENT PROGRESS NOTE SERVICE DATE: 12/11/2022 SERVICE TIME: 3:26 pm LOS: 4 days No further skilled PT / OT needed at [place]. SIGNATURE: Gloria Toro RN PATIENT NAME: Sukhdeep Simental DATE: December 11, 2022 TIME: 3:25 PM PAGER/CONTACT #: [phone] Normal [facility] CBC panel Auto (Bld)on 12-11 Erythrocyte distribution width (RBC) [Ratio] 12.5 % Normal 11.5-15.0 [facility] Comment on above: Order Comment: Speci men Type: BLOOD SPECIMEN Ordering Facility: [facility] Address: [address] [place] [address] Performed By: #### 5 8410-2 #### [facility] CLIA [id number] [address] [place] [address] [place] Hematocrit (Bld) [Volume fraction] 34.6 % Low 39.0-51.0 [facility] Comment on above: Order Comment: Speci men Type: BLOOD SPECIMEN Ordering Facility: [facility] Address: [address] [place] [address] Performed By: #### 5 8410-2 #### [facility] IA [id number] [address] [place] [address] [place] Hemoglobin (Bld) [Mass/Vol] 11.7 g/dL Low 13.0-17.0 [facility] Comment on above: Order Comment: Speci men Type: BLOOD SPECIMEN Ordering Facility: [facility] Address: [address] [place] [address] Performed By: #### 5 8410-2 #### [facility] IA [id number] [address] [place] [address] [place] MCH (RBC) [Entitic mass] 32.0 pg Normal 26.0-34.0 [facility] Comment on above: Order Comment: Speci men Type: BLOOD SPECIMEN Ordering Facility: [facility] Address: [address] [place] [address] Performed By: #### 5 8410-2 #### [facility] IA [id number] [address] [place] [address] [place] MCHC (RBC) [Mass/Vol] 33.8 g/dL Normal 30.5-36.0 [facility] Comment on above: Order Comment: Speci men Type: BLOOD SPECIMEN Ordering Facility: [facility] Address: [address] [place] [address] Performed By: #### 5 8410-2 #### [facility] IA [id number] [address] [place] [address] [place] MCV (RBC) [Entitic vol] 94.5 fL Normal 80.0-100.0 [facility] Comment on above: Order Comment: Speci men Type: BLOOD SPECIMEN Ordering Facility: [facility] Address: [address] [place] [address] Performed By: #### 5 8410-2 #### [facility] CLIA [id number] [address] [place], [place] [address] [place] Nucleated RBC (Bld) [#/Vol] 10*3/uL Normal <0.01 [facility] Comment on above: Order Comment: Speci men Type: BLOOD SPECIMEN Ordering Facility: [facility] Address: [address] [place] [address] Performed By: #### 5 8410-2 #### [facility] CLIA [id number] [address] [place] [address] [place] Platelet mean volume (Bld) [Entitic vol] 9.4 fL Normal 9.0-12.7 [facility] Comment on above: Order Comment: Speci men Type: BLOOD SPECIMEN Ordering Facility: [facility] Address: [address] [place] [address] Performed By: #### 5 8410-2 #### [facility] CLIA [id number] [address] [place] [address] [place] Platelets (Bld) [#/Vol] 196 10*3/uL Normal 150-400 [facility] Comment on above: Order Comment: Speci men Type: BLOOD SPECIMEN Ordering Facility: [facility] Address: [address] [place] [address] Performed By: #### 5 8410-2 #### [facility] CLIA [id number] [address] [place] [address] [place] RBC (Bld) [#/Vol] 3.66 10*6/uL Low 4.20-6.00 [facility] Comment on above: Order Comment: Speci men Type: BLOOD SPECIMEN Ordering Facility: [facility] Address: [address] [place] [address] Performed By: #### 5 8410-2 #### [facility] CLIA [id number] [address] [place] [address] [place] WBC (Bld) [#/Vol] 9.04 10*3/uL Normal 3.70-11.00 [facility] Comment on above: Order Comment: Shahrzad dumont Type: BLOOD SPECIMEN Ordering Facility: [facility] Address: [place] [address] Performed By: #### 5 8410-2 #### [facility] CLIA [id number] [facility] [address] [facility] CNDSon 12-11-2022 CNDS HNO ID: [id number] Author: Brittany Rubio PA-C Service: Neurosurgery Author Type: Physician Exchange Specialist Type: Discharge Summary Filed: 12/11/2022 10:38 AM [...] you become constipated, you may use any zsdm-xfy-hcfxgki treatment such as Milk of Magnesia, Sennakot, Prune Juice, Suppositories, etc. in addition to the stool softener/fiber supplement No alcohol or driving while on pain medication Use the dispensed medication (see prescription) You should use an brup-bgf-fjyqist stool softener (Docusate sodium) and/or a fiber [...] call for appointment?: (more content not included)... [facility] CONSULTon 12-11-2022 CONSULT HNO ID: [id number] Author: Jaiden Rucker PA-C Service: Pain Management Author Type: Physician Exchange Specialist Type: Consults Filed: 12/11/2022 8:09 AM Note [...] 8/10 Lack of pain control with iv buyer assistant fentanyl and dilaudid PERTINENT ROS: denies fever, [...] (fL) Date Saniya (more content not included)... [facility] NURSING PROGon 12-11-2022 NURSING PROG HNO ID: [id number] Author: Erlinda Bui, RN Service: Nursing Author [...] information. Patient verbalizing understanding of instructions. Normal [facility] Basic metabolic 2000 panelon 12-10-2022 Anion gap [Moles/Vol] 7 mmol/L Low -18 [facility] Comment on above: Order Comment: Speci men Type: BLOOD SPECIMEN Ordering Facility: [facility] Address: [address] [place] [address] Performed By: #### 2 4321-2 #### [facility] CLIA [id number] [address] [place] [address] [place] Calcium [Mass/Vol] 8.3 mg/dL Low 8.5-10.2 [facility] Comment on above: Order Comment: Speci men Type: BLOOD SPECIMEN Ordering Facility: [facility] Address: [address] [place] [address] Performed By: #### 2 4321-2 #### [facility] CLIA [id number] [address] [place] [address] [place] Chloride [Moles/Vol] 107 mmol/L High 97-105 [facility] Comment on above: Order Comment: Speci men Type: BLOOD SPECIMEN Ordering Facility: [facility] Address: [address] [place] [address] Performed By: #### 2 4321-2 #### [facility] CLIA [id number] [address] [place] [address] [place] CO2 [Moles/Vol] 26 mmol/L Normal 22-30 [facility] Comment on above: Order Comment: Speci men Type: BLOOD SPECIMEN Ordering Facility: [facility] Address: [address] [place] [address] Performed By: #### 2 4321-2 #### [facility] CLIA [id number] [address] [place] [address] [place] Creatinine [Mass/Vol] 1.16 mg/dL Normal 0.73-1.22 [facility] Comment on above: Order Comment: Shahrzad dumont Type: BLOOD SPECIMEN Ordering Facility: [facility] Address: [address] [place] [address] Performed By: #### 2 4321-2 #### [facility] CLIA [id number] [address] [place], [place] [address] [place] Creatinine and Glomerular filtration rate.predicted panel (S/P/Bld) 73 mL/min/1.73m??? Normal >=60 [facility] Comment on above: Order Comment: Toneyfrances dumont Type: BLOOD SPECIMEN Ordering Facility: [facility] Address: [address] [place] [address] Result Comment: Leah mated Glomerular Filtration Rate [...] By: #### 2 4321-2 #### [facility] CLIA [id number] [address] [place], [place] [address] [place] Glucose [Mass/Vol] 129 mg/dL High 74-99 [facility] Comment on above: Order Comment: Shahrzad dumont Type: BLOOD SPECIMEN Ordering Facility: [facility] Address: [address] [place] [address] Result Comment: The [place] Diabetes Association (ADA) provides guidance for cutoff [...] Standards of Medical Care in Diabetes 2016, [place] [employer]. Diabetes Care. 2016.39(Suppl 1). Performed By: #### 2 4321-2 #### [facility] CLIA [id number] [address] [place] [address] [place] Potassium [Moles/Vol] 4.3 mmol/L Normal 3.7-5.1 [facility] Comment on above: Order Comment: Speci men Type: BLOOD SPECIMEN Ordering Facility: [facility] Address: [address] [place] [address] Performed By: #### 2 4321-2 #### [facility] CLIA [id number] [address] [place] [address] [place] Sodium [Moles/Vol] 140 mmol/L Normal 136-144 [facility] Comment on above: Order Comment: Speci men Type: BLOOD SPECIMEN Ordering Facility: [facility] Address: [address] [place] [address] Performed By: #### 2 4321-2 #### [facility] CLIA [id number] [address] [place] [address] [place] Urea nitrogen [Mass/Vol] 16 mg/dL Normal 9-24 [facility] Comment on above: Order Comment: Speci men Type: BLOOD SPECIMEN Ordering Facility: [facility] Address: [address] [place] [address] Performed By: #### 2 4321-2 #### [facility] IA [id number] [address] [place] [address] [place] CBC panel Auto (Bld)on 12-10 Erythrocyte distribution width (RBC) [Ratio] 12.6 % Normal 11.5-15.0 [facility] Comment on above: Order Comment: Speci men Type: BLOOD SPECIMEN Ordering Facility: [facility] Address: [address] [place] [address] Performed By: #### 5 8410-2 #### [facility] CLIA [id number] [address] [place] [address] [place] Hematocrit (Bld) [Volume fraction] 32.7 % Low 39.0-51.0 [facility] Comment on above: Order Comment: Speci men Type: BLOOD SPECIMEN Ordering Facility: [facility] Address: [address] [place] [address] Performed By: #### 5 8410-2 #### [facility] CLIA [id number] [address] [place] [address] [place] Hemoglobin (Bld) [Mass/Vol] 10.9 g/dL Low 13.0-17.0 [facility] Comment on above: Order Comment: Speci men Type: BLOOD SPECIMEN Ordering Facility: [facility] Address: [address] [place] [address] Performed By: #### 5 8410-2 #### [facility] IA [id number] [address] [place] [address] [place] MCH (RBC) [Entitic mass] 31.5 pg Normal 26.0-34.0 [facility] Comment on above: Order Comment: Speci men Type: BLOOD SPECIMEN Ordering Facility: [facility] Address: [address] [place] [address] Performed By: #### 5 8410-2 #### [facility] IA [id number] [address] [place] [address] [place] MCHC (RBC) [Mass/Vol] 33.3 g/dL Normal 30.5-36.0 [facility] Comment on above: Order Comment: Speci men Type: BLOOD SPECIMEN Ordering Facility: [facility] Address: [address] [place] [address] Performed By: #### 5 8410-2 #### [facility] IA [id number] [address] [place] [address] [place] MCV (RBC) [Entitic vol] 94.5 fL Normal 80.0-100.0 [facility] Comment on above: Order Comment: Speci men Type: BLOOD SPECIMEN Ordering Facility: [facility] Address: [address] [place] [address] Performed By: #### 5 8410-2 #### [facility] IA [id number] [address] [place] [address] [place] Nucleated RBC (Bld) [#/Vol] 10*3/uL Normal <0.01 [facility] Comment on above: Order Comment: Speci men Type: BLOOD SPECIMEN Ordering Facility: [facility] Address: [address] [place] [address] Performed By: #### 5 8410-2 #### [facility] CLIA [id number] [address] [place], [place] [address] [place] Platelet mean volume (Bld) [Entitic vol] 9.6 fL Normal 9.0-12.7 [facility] Comment on above: Order Comment: Speci men Type: BLOOD SPECIMEN Ordering Facility: [facility] Address: [address] [place] [address] Performed By: #### 5 8410-2 #### [facility] CLIA [id number] [address] [place] [address] [place] Platelets (Bld) [#/Vol] 157 10*3/uL Normal 150-400 [facility] Comment on above: Order Comment: Speci men Type: BLOOD SPECIMEN Ordering Facility: [facility] Address: [address] [place] [address] Performed By: #### 5 8410-2 #### [facility] IA [id number] [address] [place] [address] [place] RBC (Bld) [#/Vol] 3.46 10*6/uL Low 4.20-6.00 [facility] Comment on above: Order Comment: Speci men Type: BLOOD SPECIMEN Ordering Facility: [facility] Address: [address] [place] [address] Performed By: #### 5 8410-2 #### [facility] CLIA [id number] [address] [place] [address] [place] WBC (Bld) [#/Vol] 8.16 10*3/uL Normal 3.70-11.00 [facility] Comment on above: Order Comment: Speci men Type: BLOOD SPECIMEN Ordering Facility: [facility] Address: [address] [place] [address] Performed By: #### 5 8410-2 #### [facility] CLIA [id number] [address] [place] [address] [place] THERAPY NTon 12-10-2022 THERAPY NT HNO ID: [id number] Author: Odilon Madrid PT Service: Physical Therapy Author Type: Physical Therapist Type: Therapy (PT/OT/Speech/Resp) Filed: 12/10/2022 11:20 AM Note Text: PHYSICAL THERAPY MISSED VISIT SERVICE DATE: 12/10/2022 SERVICE TIME: 1109 to 1111 ROOM: [place] [address] Patient not seen due to Refused Treatment. Pt reported pain levels are too high to attempt therapy. Will f/u as schedule allows and pain improves. SIGNATURE: Odilon Madrid PT PATIENT NAME: Sukhdeep Simental DATE: December 10, 2022 TIME: 11:20 AM [facility] ALLIED HEALTHon 12-09-2022 ALLIED HEALTH HNO ID: [id number] Author: Akila Huitron RT(R) Service: Radiology Author [...] RT Jose(R) December 09, 2022 2:01 PM [facility] Basic metabolic 2000 panelon 12-09-2022 Anion gap [Moles/Vol] 6 mmol/L Low 11-12 [facility] Comment on above: Order Comment: Speci men Type: BLOOD SPECIMEN Ordering Facility: [facility] Address: [address] [place] [address] Performed By: #### 2 4321-2 #### [facility] CLIA [id number] [address] [place] [address] [place] Calcium [Mass/Vol] 8.5 mg/dL Normal 8.5-10.2 [facility] Comment on above: Order Comment: Speci men Type: BLOOD SPECIMEN Ordering Facility: [facility] Address: [address] [place] [address] Performed By: #### 2 4321-2 #### [facility] CLIA [id number] [address] [place] [address] [place] Chloride [Moles/Vol] 106 mmol/L High 97-105 [facility] Comment on above: Order Comment: Speci men Type: BLOOD SPECIMEN Ordering Facility: [facility] Address: [address] [place] [address] Performed By: #### 2 4321-2 #### [facility] CLIA [id number] [address] [place] [address] [place] CO2 [Moles/Vol] 30 mmol/L Normal 22-30 [facility] Comment on above: Order Comment: Speci men Type: BLOOD SPECIMEN Ordering Facility: [facility] Address: [address] [place] [address] Performed By: #### 2 4321-2 #### [facility] IA [id number] [address] [place] [address] [place] Creatinine [Mass/Vol] 1.34 mg/dL High 0.73-1.22 [facility] Comment on above: Order Comment: Speci men Type: BLOOD SPECIMEN Ordering Facility: [facility] Address: [address] [place] [address] Performed By: #### 2 4321-2 #### [facility] CLIA [id number] [address] [place] [address] [place] Creatinine and Glomerular filtration rate.predicted panel (S/P/Bld) 61 mL/min/1.73m??? Normal >=60 [facility] Comment on above: Order Comment: Speci men Type: BLOOD SPECIMEN Ordering Facility: [facility] Address: [address] [place] [address] Result Comment: Leah mated Glomerular Filtration Rate [...] GFR. Performed By: #### 2 4321-2 #### [facility] CLIA [id number] [address] [place] [address] [place] Glucose [Mass/Vol] 105 mg/dL High 74-99 [facility] Comment on above: Order Comment: Shahrzad dumont Type: BLOOD SPECIMEN Ordering Facility: [facility] Address: [place] [address] Result Comment: The [place] Diabetes Association (ADA) provides guidance for cutoff [...] Standards of Medical Care in Diabetes 2016, [place] [employer]. Diabetes Care. 2016.39(Suppl 1). Performed By: #### 2 4321-2 #### [facility] CLIA [id number] [address] [place], [place] [address] [place] Potassium [Moles/Vol] 3.9 mmol/L Normal 3.7-5.1 [facility] Comment on above: Order Comment: Shahrzad dumont Type: BLOOD SPECIMEN Ordering Facility: [facility] Address: [place] [address] Performed By: #### 2 4321-2 #### [facility] CLIA [id number] [address] [place], [place] [address] [place] Sodium [Moles/Vol] 142 mmol/L Normal 136-144 [facility] Comment on above: Order Comment: Speci men Type: BLOOD SPECIMEN Ordering Facility: [facility] Address: [address] [place] [address] Performed By: #### 2 4321-2 #### [facility] CLIA [id number] [address] [place] [address] [place] Urea nitrogen [Mass/Vol] 18 mg/dL Normal 9-24 [facility] Comment on above: Order Comment: Speci men Type: BLOOD SPECIMEN Ordering Facility: [facility] Address: [address] [place] [address] Performed By: #### 2 4321-2 #### [facility] CLIA [id number] [address] [place] [address] [place] CBC panel Auto (Bld)on 12-09 Erythrocyte distribution width (RBC) [Ratio] 12.7 % Normal 11.5-15.0 [facility] Comment on above: Order Comment: Speci men Type: BLOOD SPECIMEN Ordering Facility: [facility] Address: [address] [place] [address] Performed By: #### 5 8410-2 #### [facility] CLIA [id number] [address] [place] [address] [place] Hematocrit (Bld) [Volume fraction] 34.1 % Low 39.0-51.0 [facility] Comment on above: Order Comment: Speci men Type: BLOOD SPECIMEN Ordering Facility: [facility] Address: [address] [place] [address] Performed By: #### 5 8410-2 #### [facility] CLIA [id number] [address] [place] [address] [place] Hemoglobin (Bld) [Mass/Vol] 11.6 g/dL Low 13.0-17.0 [facility] Comment on above: Order Comment: Speci men Type: BLOOD SPECIMEN Ordering Facility: [facility] Address: [address] [place] [address] Performed By: #### 5 8410-2 #### [facility] CLIA [id number] [address] [place] [address] [place] MCH (RBC) [Entitic mass] 32.3 pg Normal 26.0-34.0 [facility] Comment on above: Order Comment: Speci men Type: BLOOD SPECIMEN Ordering Facility: [facility] Address: [address] [place] [address] Performed By: #### 5 8410-2 #### [facility] CLIA [id number] [address] [place] [address] [place] MCHC (RBC) [Mass/Vol] 34.0 g/dL Normal 30.5-36.0 [facility] Comment on above: Order Comment: Speci men Type: BLOOD SPECIMEN Ordering Facility: [facility] Address: [address] [place] [address] Performed By: #### 5 8410-2 #### [facility] CLIA [id number] [address] [place] [address] [place] MCV (RBC) [Entitic vol] 95.0 fL Normal 80.0-100.0 [facility] Comment on above: Order Comment: Speci men Type: BLOOD SPECIMEN Ordering Facility: [facility] Address: [address] [place] [address] Performed By: #### 5 8410-2 #### [facility] IA [id number] [address] [place] [address] [place] Nucleated RBC (Bld) [#/Vol] 10*3/uL Normal <0.01 [facility] Comment on above: Order Comment: Speci men Type: BLOOD SPECIMEN Ordering Facility: [facility] Address: [address] [place] [address] Performed By: #### 5 8410-2 #### [facility] CLIA [id number] [address] [place] [address] [place] Platelet mean volume (Bld) [Entitic vol] 9.6 fL Normal 9.0-12.7 [facility] Comment on above: Order Comment: Speci men Type: BLOOD SPECIMEN Ordering Facility: [facility] Address: [address] [place] [address] Performed By: #### 5 8410-2 #### [facility] CLIA [id number] [address] [place], [place] [address] [place] Platelets (Bld) [#/Vol] 159 10*3/uL Normal 150-400 [facility] Comment on above: Order Comment: Speci men Type: BLOOD SPECIMEN Ordering Facility: [facility] Address: [address] [place] [address] Performed By: #### 5 8410-2 #### [facility] CLIA [id number] [address] [place], [place] [address] [place] RBC (Bld) [#/Vol] 3.59 10*6/uL Low 4.20-6.00 [facility] Comment on above: Order Comment: Speci men Type: BLOOD SPECIMEN Ordering Facility: [facility] Address: [address] [place] [address] Performed By: #### 5 8410-2 #### [facility] IA [id number] [address] [place], [place] [address] [place] WBC (Bld) [#/Vol] 8.72 10*3/uL Normal 3.70-11.00 [facility] Comment on above: Order Comment: Speci men Type: BLOOD SPECIMEN Ordering Facility: [facility] Address: [address] [place] [address] Performed By: #### 5 8410-2 #### [facility] IA [id number] [address] [place], [place] [address] [facility] OF [place] NURSING PROGon 12-09-2022 NURSING PROG HNO ID: [id number] Author: Abdias Pemberton RN Service: Nursing Author Type: Registered Nurse Type: Nursing Progress Note Filed: 12/09/2022 7:21 PM Note Text: 12/09/2022 0826: hydromorphone STICK WELDER rate varied. Patient rating pain 8/10 at this time stating oh, its much better than yesterday . 0931: Patient working with PT at this time 1035: Patient resting/sleeping comfortably in bed at this time. 1200: fentaNYL STICK WELDER ordered. 1345: Patient ambulating in the hallway with nursing staff and . 1402: Patient at radiology for post-op XR 1406: Hydromorphone STICK WELDER discontinued. While discontinuing the hydromorphone STICK WELDER, patient made several comments about unused hydromorphone, I can take that medication off your hands. Patient educated that the medication will be properly wasted per protocol. 1407: fentaNYL STICK WELDER started and Hydromorphone properly wasted per protocol. [...] Can't you increase my setting on the STICK WELDER because I had better pain relief with the Dilaudid pump because I could press the button more frequent? Can you increase the pump settings? [facility] THERAPY NTon 12-09-2022 THERAPY NT HNO ID: [id number] Author: Abdias Crooks OT/L Service: Occupational Therapy Author Type: Occupational Therapist Type: Therapy (PT/OT/Speech/Resp) Filed: 12/09/2022 3:30 PM Note Text: Occupational Therapy Evaluation SERVICE DATE: 12/09/2022 SERVICE TIME: 1438 to 1502 ROOM: [place] [address] Total Joint Replacement Discharge Readiness: Cleared from [...] slower than expec (more content not included)... [facility] THERAPY NT HNO ID: [id number] Author: Hannah Mota PT, DPT Service: Physical Therapy Author Type: Physical Therapist Type: Therapy (PT/OT/Speech/Resp) Filed: 12/09/2022 10:06 AM Note Text: Physical Therapy Treatment SERVICE DATE: 12/09/2022 SERVICE TIME: 930 to 954 ROOM: [place] [address] Total Joint Replacement Discharge Readiness: Cleared from Physical Therapy Recommended Discharge Disposition: Home Anticipated Discharge Needs: Physical Assist at Home Physical Assist at Home for: Cleaning, Laundry, Meals, Stairs, Safety Recommended Discharge Equipment: No equipment needs anticipated PT 6 Clicks Score: 24 Pt agreeable to participate. Reports slight improvement in pain compared to yesterday but relies highly on STICK WELDER. Pt able to ambulate around unit with [...] Difficulty walking-musculoskeleta l Interventions Provided: Therapeutic Activity (93014), Gait Training (88633) Therapeutic Activity (86890) Treatment Minutes: 10 $ Therapeutic Activity (89125) Billed Units: 1 unit Gait Training (69841) Treatment Minutes: 14 $ Gait Training (81108) Billed Units: 1 unit Training AND Education [...] for this therapy (more content not included)... [facility] XR LUMBAR 2V AP/LATon 2022 XR LUMBAR [...] IMPRESSION: Postoperative and degenerative changes as described. Gauge Maker: COURTNEY Transcribe Date/Time: Dec 09 2022 3:39P Dictated by : DONNY WOO DO This examination was interpreted and the report reviewed and electronically signed by: DONNY WOO DO on Dec 09 2022 3:42PM EST [id number] Normal [facility] Basic metabolic 2000 panelon 12-08-2022 Anion gap [Moles/Vol] 7 mmol/L Low 9-18 [facility] Comment on above: Order Comment: Speci men Type: BLOOD SPECIMEN Ordering Facility: [facility] Address: [address] [place] [address] Performed By: #### 2 4321-2 #### [facility] CLIA [id number] [address] [place] [address] [place] Calcium [Mass/Vol] 8.2 mg/dL Low 8.5-10.2 [facility] Comment on above: Order Comment: Speci men Type: BLOOD SPECIMEN Ordering Facility: [facility] Address: [address] [place] [address] Performed By: #### 2 4321-2 #### [facility] CLIA [id number] [address] [place] [address] [place] Chloride [Moles/Vol] 106 mmol/L High 97-105 [facility] Comment on above: Order Comment: Speci men Type: BLOOD SPECIMEN Ordering Facility: [facility] Address: [address] [place] [address] Performed By: #### 2 4321-2 #### [facility] CLIA [id number] [address] [place], [place] [address] [place] CO2 [Moles/Vol] 28 mmol/L Normal 22-30 [facility] Comment on above: Order Comment: Speci men Type: BLOOD SPECIMEN Ordering Facility: [facility] Address: [address] [place] [address] Performed By: #### 2 4321-2 #### [facility] CLIA [id number] [address] [place] [address] [place] Creatinine [Mass/Vol] 1.35 mg/dL High 0.73-1.22 [facility] Comment on above: Order Comment: Shahrzad dumont Type: BLOOD SPECIMEN Ordering Facility: [facility] Address: [address] [place] [address] Performed By: #### 2 4321-2 #### [facility] CLIA [id number] [address] [place] [address] [place] Creatinine and Glomerular filtration rate.predicted panel (S/P/Bld) 60 mL/min/1.73m??? Normal >=60 [facility] Comment on above: Order Comment: Shahrzad dumont Type: BLOOD SPECIMEN Ordering Facility: [facility] Address: [address] [place] [address] Result Comment: Leah mated Glomerular Filtration Rate [...] GFR. Performed By: #### 2 4321-2 #### [facility] CLIA [id number] [address] [place], [place] [address] [place] Glucose [Mass/Vol] 139 mg/dL High 74-99 [facility] Comment on above: Order Comment: Shahrzad dumont Type: BLOOD SPECIMEN Ordering Facility: [facility] Address: [address] [place] [address] Result Comment: The [place] [employer] Association (ADA) provides guidance for cutoff [...] Standards of Medical Care in Diabetes 2016, [place] [employer]. Diabetes Care. 2016.39(Suppl 1). Performed By: #### 2 4321-2 #### [facility] CLIA [id number] [address] [place] [address] [place] Potassium [Moles/Vol] 3.7 mmol/L Normal 3.7-5.1 [facility] Comment on above: Order Comment: Speci men Type: BLOOD SPECIMEN Ordering Facility: [facility] Address: [address] [place] [address] Performed By: #### 2 4321-2 #### [facility] CLIA [id number] [address] [place] [address] [place] Sodium [Moles/Vol] 141 mmol/L Normal 136-144 [facility] Comment on above: Order Comment: Speci men Type: BLOOD SPECIMEN Ordering Facility: [facility] Address: [address] [place] [address] Performed By: #### 2 4321-2 #### [facility] CLIA [id number] [address] [place] [address] [place] Urea nitrogen [Mass/Vol] 23 mg/dL Normal 9-24 [facility] Comment on above: Order Comment: Speci men Type: BLOOD SPECIMEN Ordering Facility: [facility] Address: [address] [place] [address] Performed By: #### 2 4321-2 #### [facility] CLIA [id number] [address] [place] [address] OF [place] CASE MGT INIT ASSESon 2022 CASE MGT INIT ASSES HNO ID: [id number] Author: Gloria Toro RN Service: ? Author Type: Registered Nurse Type: Care Mgt Initial Assessment Filed: 12/08/2022 8:48 AM Note Text: CARE MANAGEMENT: ASSESSMENT AND DISCHARGE PLAN SERVICE DATE: December 08, 2022 SERVICE TIME: 8:46 am PCP: Blayne Isabel MD Primary Contact: Extended Emergency Contact Information Primary Emergency Contact: Darryl Simental Address: [address] [place] [address] [place] Mobile Relation: Spouse [...] to go home, General wellness, Less pain [place] Explained: [place] Given: No Reason Not Given: No placements necessary Discharge Planning Participant(s): Patient Patient/Family Comments: Caregiver Assessment: Transport at Discharge: Needs Prior to Discharge: Needs Prior to Discharge: To Be Determined;OT/PT Evaluation Post-Acute Discharge Plan: CM met with patient at the bedside this a.m., has rollator, cane AND walker, says will be driving him home at [place] and can assist him as well, per eval, no further skilled PT / OT needed at [place]. CM Department will continue to follow until [place]. SIGNATURE: Gloria Toro RN PATIENT NAME: Sukhdeep Simental DATE: December 08, 2022 TIME: 8:46 AM CONTACT #: [phone] [facility] CBC panel Auto (Bld)on 12-08 Erythrocyte distribution width (RBC) [Ratio] 12.8 % Normal 11.5-15.0 [facility] Comment on above: Order Comment: Shahrzad dumont Type: BLOOD SPECIMEN Ordering Facility: [facility] Address: [address] [place] [address] Performed By: #### 5 8410-2 #### [facility] CLIA [id number] [address] [place] [address] [place] Hematocrit (Bld) [Volume fraction] 34.8 % Low 39.0-51.0 [facility] Comment on above: Order Comment: Shahrzad dumont Type: BLOOD SPECIMEN Ordering Facility: [facility] Address: [address] [place] [address] Performed By: #### 5 8410-2 #### [facility] IA [id number] [address] [place] [address] [place] Hemoglobin (Bld) [Mass/Vol] 11.7 g/dL Low 13.0-17.0 [facility] Comment on above: Order Comment: Speci men Type: BLOOD SPECIMEN Ordering Facility: [facility] Address: [address] [place] [address] Performed By: #### 5 8410-2 #### [facility] IA [id number] [address] [place] [address] [place] MCH (RBC) [Entitic mass] 31.8 pg Normal 26.0-34.0 [facility] Comment on above: Order Comment: Speci men Type: BLOOD SPECIMEN Ordering Facility: [facility] Address: [address] [place] [address] Performed By: #### 5 8410-2 #### [facility] IA [id number] [address] [place] [address] [place] MCHC (RBC) [Mass/Vol] 33.6 g/dL Normal 30.5-36.0 [facility] Comment on above: Order Comment: Speci men Type: BLOOD SPECIMEN Ordering Facility: [facility] Address: [address] [place] [address] Performed By: #### 5 8410-2 #### [facility] IA [id number] [address] [place] [address] [place] MCV (RBC) [Entitic vol] 94.6 fL Normal 80.0-100.0 [facility] Comment on above: Order Comment: Speci men Type: BLOOD SPECIMEN Ordering Facility: [facility] Address: [address] [place] [address] Performed By: #### 5 8410-2 #### [facility] IA [id number] [address] [place] [address] [place] Nucleated RBC (Bld) [#/Vol] 10*3/uL Normal <0.01 [facility] Comment on above: Order Comment: Speci men Type: BLOOD SPECIMEN Ordering Facility: [facility] Address: [address] [place] [address] Performed By: #### 5 8410-2 #### [facility] CLIA [id number] [address] [place] [address] [place] Platelet mean volume (Bld) [Entitic vol] 9.4 fL Normal 9.0-12.7 [facility] Comment on above: Order Comment: Speci men Type: BLOOD SPECIMEN Ordering Facility: [facility] Address: [address] [place] [address] Performed By: #### 5 8410-2 #### [facility] CLIA [id number] [address] [place] [address] [place] Platelets (Bld) [#/Vol] 162 10*3/uL Normal 150-400 [facility] Comment on above: Order Comment: Speci men Type: BLOOD SPECIMEN Ordering Facility: [facility] Address: [address] [place] [address] Performed By: #### 5 8410-2 #### [facility] CLIA [id number] [address] [place] [address] [place] RBC (Bld) [#/Vol] 3.68 10*6/uL Low 4.20-6.00 [facility] Comment on above: Order Comment: Speci men Type: BLOOD SPECIMEN Ordering Facility: [facility] Address: [address] [place] [address] Performed By: #### 5 8410-2 #### [facility] CLIA [id number] [address] [place] [address] [place] WBC (Bld) [#/Vol] 7.95 10*3/uL Normal 3.70-11.00 [facility] Comment on above: Order Comment: Speci men Type: BLOOD SPECIMEN Ordering Facility: [facility] Address: [address] [place] [address] Performed By: #### 5 8410-2 #### [facility] CLIA [id number] [address] [place] [address] [place] CONSULTon 12-08-2022 CONSULT HNO ID: [id number] Author: Lulu Oviedo MD Service: General Internal [...] Recent Labs 12/08 (more content not included)... [facility] NURSING PROGon 12-08-2022 NURSING PROG HNO ID: [id number] Author: Abdias Pemberton, RN Service: Nursing Author [...] notified of the patient's increased pain after STICK WELDER was DC'ed earlier and transitioned to PO medications. Hydromorphone STICK WELDER reordered per Dr. Mathew. 1729: Hydromorphone STICK WELDER restarted. 1735: Patient assisted by nursing staff to bed and states that his pain has decreased. Patient resting comfortably in bed at this time. 1900: Patient resting comfortably in bed at this time. [facility] THERAPY NTon 12-08-2022 THERAPY NT HNO ID: [id number] Author: Taylor Montoya OTR/Kelly Service: Occupational Therapy Author Type: Occupational Therapist Type: Therapy (PT/OT/Speech/Resp) Filed: 12/08/2022 12:35 PM Note Text: OCCUPATIONAL THERAPY MISSED VISIT SERVICE DATE: 12/08/2022 SERVICE TIME: 1233 to 1233 ROOM: [place] [address] Patient not seen due to Refused Treatment. Patient having a significant amount of pain. Offered patient option of working with OT tomorrow. Pt would prefer OT evaluation tomorrow. SIGNATURE: URSULA Glynn/Kelly PATIENT NAME: Sukhdeep Simental DATE: December 08, 2022 TIME: 12:34 PM [facility] THERAPY NT HNO ID: [id number] Author: Jean-Pierre Lutz, PT, DPT Service: Physical Therapy Author Type: Physical Therapist Type: Therapy (PT/OT/Speech/Resp) Filed: 12/08/2022 8:44 AM Note Text: Physical Therapy Evaluation SERVICE DATE: 12/08/2022 SERVICE TIME: 807 to 830 ROOM: [place] [address] Cleared from Physical Therapy Recommended Discharge Disposition: [...] Weakness (generalized) Interventions Provided: Evaluation, Gait Training (72591) $ Evaluation-Low (58426) Billed Units: 1 unit Gait Training (28908) Treatment Minutes: 8 $ Gait Training (76878) Billed Units: 1 unit Training AND Education [...] DATE: December 08, 2022 TIME: 8:44 AM [facility] ANES POSTPROC EVALon 023 ANES POSTPROC EVAL HNO ID: [id number] Author: Ankit Orlando MD Service: Anesthesiology Author Type: Anesthesiologist Type: Anesthesia Postprocedure Evaluation Filed: 12/07/2022 3:37 PM Note Text: POST ANESTHESIA EVALUATION NOTE : 1965 Procedure Summary Date: 12/07/22 Room / Location: [place] [address] / OR Anesthesia Start: 737 Anesthesia Stop: [...] December 07, 2022 TIME: 3:37 PM CSN: [id number] [facility] ANES PRE-OPon 12-07-2022 ANES PRE-OP HNO ID: [id number] Author: Nasim Pruett I, MD Service: Anesthesiology [...] December 07, 2022 TIME: 7:01 AM CSN: [id number] [facility] BRIEF OP NOTon 12-07-2022 BRIEF OP NOT HNO ID: [id number] Author: Thomas Mathew MD Service: Neurosurgery Author Type: Physician Type: Brief Op Note Filed: 12/07/2022 12:49 PM Note Text: BRIEF OPERATIVE / PROCEDURE NOTE LOG ID: [id number] SURGERY/PROCEDURE DATE: 12/07/2022 INCISION/PROCEDURE START TIME: 8:09 AM INCISION CLOSE/PROCEDURE END TIME: 12:34 PM SURGEON(S)/PROCEDURALI ST(S) AND MANAGER DEMAND(S): Surgeon(s) and Role: * Thomas Mathew MD [...] DATE: December 07, 2022 TIME: 12:31 PM [facility] NURSING PROGon 12-07-2022 NURSING PROG HNO ID: [id number] Author: Livia Calix RN Service: ? Author Type: Registered Nurse Type: Nursing Progress Note Filed: 12/07/2022 2:48 PM Note Text: Transfer Note: PATIENT NAME: Sukhdeep Simental Patient Location: [address]/[place] [address] Room: [place] [address] Patient transferred into room/unit 503-2 in stable condition. Patient educated on use of call light, fall precautions, and incentive spirometer. No futher actions taken at this time. Will continue to monitor and check with patient. [facility] OPERATIVE NOon 12-07-2022 OPERATIVE NO HNO ID: [id number] Author: Thomas Mathew MD Service: Neurosurgery Author Type: Physician Type: Operative Report Filed: 12/07/2022 3:54 PM Note Text: OPERATIVE/PROCEDURE REPORT LOG ID: [id number] SURGERY/PROCEDURE DATE: 12/07/2022 INCISION/PROCEDURE START TIME: 8:09 AM INCISION CLOSE/PROCEDURE END TIME: 12:34 PM SURGEON(S)/PROCEDURALI ST(S) AND MANAGER DEMAND(S): Surgeon(s) and Role: * Thomas Mathew MD [...] and sized at a 10 mm. The Spinal Restoration system was the instrumentation system used. Local [...] drill was used to make a small airplane pilot helper hole. The gear shift along with pedicle [...] Implant Name Type Inv. Item Serial No. Icu Tech Lot No. LRB No. Used Action VITOSS [id number] BIOACTIVE BONE GRAFT SUBSTITUTE 5.0CUB CM Implant [place] [id number] N/A 1 Implanted CAGE TRITANIUM 6D [id number] SPINAL STERILE LATEX FREE LUMBAR POSTERIOR - [id number] Implant CAGE TRITANIUM 6D [id number] SPINAL STERILE LATEX FREE LUMBAR POSTERIOR [place] SPINE T9H8 N/A 1 Implanted CAGE TRITANIUM 6D [id number] SPINAL STERILE LATEX FREE LUMBAR POSTERIOR - [id number] Implant CAGE TRITANIUM 6D [id number] (more content not included)... [facility] XR LUMBAR 2V AP/LATon 2022 XR LUMBAR 2V AP/LAT * * *Final Report* * * DATE OF EXAM: Dec 07 2022 12:52PM [facility] - XR LUMBAR 2V AP/LAT / PROCEDURE [...] examination for surgical planning and documentation. . Gauge Maker: PSCB Transcribe Date/Time: Dec 07 2022 3:13P Dictated by : DONNY WOO DO This examination was interpreted and the report reviewed and electronically signed by: DONNY WOO DO on Dec 07 2022 3:15PM EST [id number] [facility] XR LUMBAR 2V AP/LAT * * *Final Report* * * DATE OF EXAM: Dec 07 2022 11:33AM [place] [id number] - XR LUMBAR 2V AP/LAT / PROCEDURE [...] Intraoperative examination for surgical planning and documentation. Gauge Maker: COURTNEY Transcribe Date/Time: Dec 07 2022 2:43P Dictated by : DONNY WOO DO This examination was interpreted and the report reviewed and electronically signed by: DONNY WOO DO on Dec 07 2022 2:46PM EST [id number] [facility] XR LUMBAR 2V AP/LAT * * *Final [...] examination for surgical planning and documentation. . Gauge Maker: Red Seraphim Transcribe Date/Time: Dec 07 2022 2:37P Dictated by : DONNY WOO DO This examination was interpreted and the report reviewed and electronically signed by: DONNY WOO DO on Dec 07 2022 2:40PM EST [id number] [facility] 11-29-2022 [facility] Telephone (NIQ) SUKHDEEP SIMENTAL ([id number]) 1965 M Date Time Provider Department 11/29/22 THOM[facility] MATHEW [facility] During your visit today, we recorded the following information about you: Moriah Ferguson 11/29/2022 9:50 AM Signed Patient called regarding a C/9 being filed for his Dec 07 surgery. He spoke to his [facility] contact and they said nothing has been filed yet. Please update patient. Juan Pablo Nova RN 11/29/2022 10:27 AM Signed C9 sent to provider for signature. Awaiting signature. Juan Pablo Nova RN 11/29/2022 12:20 PM Signed Signed C9 sent to [facility] and [facility]. Faxed verifications received. Kathe Lezama 12/05/2022 11:01 AM Signed Patient calling asking for an update on his C9 and surgery approval. He would like to know if nurse can reach out to [facility] for an update and let him know. Juan Pablo Nova RN 12/05/2022 11:43 AM Signed Called Sunita and discussed patient's upcoming surgery. Per Sunita she did already explain to the patient that the information was submitted to the Bereavement Program Coordinator for review and does take up to 5 business days for a decision. Juan Pablo Nova RN 12/05/2022 1:16 PM Signed Spoke with patient. Informed case is still on for Saturday and that I spoke with Sunita. Patient appreciative of call. Ekaterina Rondon 12/06/2022 11:34 AM Addendum Sunita called from [facility], regarding patient surgery tomorrow. Surgery has been approved based on what it was shown on the medical record. Sunita wanted a called back # [phone] Ekaterina Rondon 12/06/2022 11:35 AM [facility] Scan in patient chart [...] Date Reviewed: 11/21/2022 Reviewed by: Maite Galloway APRN.TAPEMAN - Fully Assessed Reason for Visit: Bwc [...] by JUAN PABLO NOVA on 11/29/22 Normal [facility] CBC W Auto Differential pane l (Bld)on 11-21-2022 Basophils (Bld) [#/Vol] 0.04 10*3/uL Normal <0.11 [facility] Comment on above: Order Comment: Speci men Type: BLOOD SPECIMENOrdering Facility: [facility] Address: [address] [address] Performed By: #### 5 7021-8 ####[facility] LABIA [id number] [place] [address] [place] Basophils/100 WBC (Bld) 0.8 % Normal [facility] Comment on above: Order Comment: Speci men Type: BLOOD SPECIMENOrdering Facility: [facility] Address: [address] [address] Performed By: #### 5 7021-8 ####[facility] LABIA [id number] [place] Differential cell count method Nom (Bld) Auto Normal [facility] Comment on above: Order Comment: Speci men Type: BLOOD SPECIMENOrdering Facility: [facility] Address: [address] [place] [address] Performed By: #### 5 7021-8 ####[facility] LABCLIA [id number] [place] [address] [place] Eosinophils (Bld) [#/Vol] 0.11 10*3/uL Normal <0.46 [facility] Comment on above: Order Comment: Speci men Type: BLOOD SPECIMENOrdering Facility: [facility] Address: [address] [place] [address] Performed By: #### 5 7021-8 ####[facility] LABCLIA [id number] [address] [place] Eosinophils/100 WBC (Bld) 2.1 % Normal [facility] Comment on above: Order Comment: Speci men Type: BLOOD SPECIMENOrdering Facility: [facility] Address: [address] [place], [place] [address] Performed By: #### 5 7021-8 ####[facility] LABCLIA [id number] [place] [address] [place] Erythrocyte distribution width (RBC) [Ratio] 12.4 % Normal 11.5-15.0 [facility] Comment on above: Order Comment: Speci men Type: BLOOD SPECIMENOrdering Facility: [facility] Address: [address] [place], [place] [address] Performed By: #### 5 7021-8 ####[facility] LABCLIA [id number] [place] [address] [place] Hematocrit (Bld) [Volume fraction] 42.9 % Normal 39.0-51.0 [facility] Comment on above: Order Comment: Speci men Type: BLOOD SPECIMENOrdering Facility: [facility] Address: [address] Performed By: #### 5 7021-8 ####[facility] LABCLIA [id number] [place] [address] [place] Hemoglobin (Bld) [Mass/Vol] 14.5 g/dL Normal 13.0-17.0 [facility] Comment on above: Order Comment: Speci men Type: BLOOD SPECIMENOrdering Facility: [facility] Address: [address] [place], [place] [address] Performed By: #### 5 7021-8 ####[facility] LABCLIA [id number] [place] [address] [place] Immature granulocytes (Bld) [#/Vol] 10*3/uL Normal <0.10 [facility] Comment on above: Order Comment: Speci men Type: BLOOD SPECIMENOrdering Facility: [facility] Address: [address] [place], [place] [address] Performed By: #### 5 7021-8 ####[facility] LABCLIA [id number] [place] [address] [place] Immature granulocytes/100 WBC (Bld) 0.4 % Normal [facility] Comment on above: Order Comment: Speci men Type: BLOOD SPECIMENOrdering Facility: [facility] Address: [address] [place], [place] [address] Performed By: #### 5 7021-8 ####[facility] LABCLIA [id number] [place] [address] [place] Lymphocytes (Bld) [#/Vol] 1.45 10*3/uL Normal 1.00-4.00 [facility] Comment on above: Order Comment: Speci men Type: BLOOD SPECIMENOrdering Facility: [facility] Address: [address] [place], [place] [address] Performed By: #### 5 7021-8 ####[facility] LABCLIA [id number] [address] [place] Lymphocytes/100 WBC (Bld) 27.4 % Normal [facility] Comment on above: Order Comment: Speci men Type: BLOOD SPECIMENOrdering Facility: [facility] Address: [address] [place] [address] Performed By: #### 5 7021-8 ####[facility] LABIA [id number] MCH (RBC) [Entitic mass] 31.7 pg Normal 26.0-34.0 [facility] Comment on above: Order Comment: Speci men Type: BLOOD SPECIMENOrdering Facility: [facility] Address: [address] [place] [address] Performed By: #### 5 7021-8 ####[facility] LABIA [id number] [address] STATES [facility] MCHC (RBC) [Mass/Vol] 33.8 g/dL Normal 30.5-36.0 [facility] Comment on above: Order Comment: Speci men Type: BLOOD SPECIMENOrdering Facility: [facility] Address: [address] [place], [place] [address] Performed By: #### 5 7021-8 ####[facility] LABIA [id number] [address] [place] MCV (RBC) [Entitic vol] 93.7 fL Normal 80.0-100.0 [facility] Comment on above: Order Comment: Speci men Type: BLOOD SPECIMENOrdering Facility: [facility] Address: [address] [place], [place] [address] Performed By: #### 5 7021-8 ####[facility] LABIA [id number] [place] [address] [place] Monocytes (Bld) [#/Vol] 0.49 10*3/uL Normal <0.87 [facility] Comment on above: Order Comment: Speci men Type: BLOOD SPECIMENOrdering Facility: [facility] Address: [address] Performed By: #### 5 7021-8 ####[facility] LABIA [id number] [place] [address] [place] Monocytes/100 WBC (Bld) 9.2 % Normal [facility] Comment on above: Order Comment: Speci men Type: BLOOD SPECIMENOrdering Facility: [facility] Address: [address] Performed By: #### 5 7021-8 ####[facility] LABIA [id number] [place] [address] [place] Neutrophils (Bld) [#/Vol] 3.19 10*3/uL Normal 1.45-7.50 [facility] Comment on above: Order Comment: Speci men Type: BLOOD SPECIMENOrdering Facility: [facility] Address: [address] Performed By: #### 5 7021-8 ####[facility] LABIA [id number] [place] [address] [place] Neutrophils/100 WBC (Bld) 60.1 % Normal [facility] Comment on above: Order Comment: Speci men Type: BLOOD SPECIMENOrdering Facility: [facility] Address: [address] [place] [address] Performed By: #### 5 7021-8 ####[facility] LABIA [id number] [place] [address] [place] Nucleated RBC (Bld) [#/Vol] 10*3/uL Normal <0.01 [facility] Comment on above: Order Comment: Speci men Type: BLOOD SPECIMENOrdering Facility: [facility] Address: [address] [place] [address] Performed By: #### 5 7021-8 ####[facility] LABIA [id number] [place] [address] [place] Nucleated RBC/100 WBC (Bld) [Ratio] 0.0 /100 WBC Normal [facility] Comment on above: Order Comment: Speci men Type: BLOOD SPECIMENOrdering Facility: [facility] Address: [address] [place] [address] Performed By: #### 5 7021-8 ####[facility] LABIA [id number] [place] [address] [place] Platelet mean volume (Bld) [Entitic vol] 9.4 fL Normal 9.0-12.7 [facility] Comment on above: Order Comment: Speci men Type: BLOOD SPECIMENOrdering Facility: [facility] Address: [address] [place] [address] Performed By: #### 5 7021-8 ####[facility] LABIA [id number] [place] [address] [place] Platelets (Bld) [#/Vol] 222 10*3/uL Normal 150-400 [facility] Comment on above: Order Comment: Speci men Type: BLOOD SPECIMENOrdering Facility: [facility] Address: [address] [place] [address] Performed By: #### 5 7021-8 ####[facility] LABIA [id number] [place] [address] [place] RBC (Bld) [#/Vol] 4.58 10*6/uL Normal 4.20-6.00 [facility] Comment on above: Order Comment: Speci men Type: BLOOD SPECIMENOrdering Facility: [facility] Address: [address] [place] [address] Performed By: #### 5 7021-8 ####[facility] LABIA [id number] [place] [address] [place] WBC (Bld) [#/Vol] 5.30 10*3/uL Normal 3.70-11.00 [facility] Comment on above: Order Comment: Speci men Type: BLOOD SPECIMENOrdering Facility: [facility] Address: [address] [place] [address] Performed By: #### 5 7021-8 ####[facility] LABCLIA [id number] [address] [facility] BLOOD TYPEon 023 ABO A Normal [facility] Comment on above: Order Comment: Speci men Type: BLOOD SPECIMENOrdering Facility: [facility] Address: [address] [place] [address] Performed By: #### C ONABO ####[facility] BLOOD BANKCLIA [id number] [place] [address] [place] Rh Nom (Bld) Negative Normal [facility] Comment on above: Order Comment: Speci men Type: BLOOD SPECIMENOrdering Facility: [facility] Address: [address] [place] [address] Performed By: #### C ONABO ####[facility] BLOOD BANKCLIA [id number] [place] [address] [place] Comprehensive metabolic 2000 panelon 11-21-2022 Albumin [Mass/Vol] 4.3 g/dL Normal 3.9-4.9 [facility] Comment on above: Order Comment: Speci men Type: BLOOD SPECIMENOrdering Facility: [facility] Address: [address] [place] [address] Performed By: #### 2 4323-8 ####[facility] LABCLIA [id number] [place] [address] [place] ALP [Catalytic activity/Vol] 68 U/L Normal 38-113 [facility] Comment on above: Order Comment: Speci men Type: BLOOD SPECIMENOrdering Facility: [facility] Address: [address] [place] [address] Performed By: #### 2 4323-8 ####[facility] LABCLIA [id number] [address] [place] ALT [Catalytic activity/Vol] 16 U/L Normal 10-54 [facility] Comment on above: Order Comment: Speci men Type: BLOOD SPECIMENOrdering Facility: [facility] Address: [address] [place] [address] Performed By: #### 2 4323-8 ####[facility] LABCLIA [id number] [place] [address] [place] Anion gap [Moles/Vol] 10 mmol/L Normal 9-18 [facility] Comment on above: Order Comment: Speci men Type: BLOOD SPECIMENOrdering Facility: [facility] Address: [address] [place] [address] Performed By: #### 2 4323-8 ####[facility] LABCLIA [id number] [place] [address] [place] AST [Catalytic activity/Vol] 21 U/L Normal 14-40 [facility] Comment on above: Order Comment: Speci men Type: BLOOD SPECIMENOrdering Facility: [facility] Address: [address] [place] [address] Performed By: #### 2 4323-8 ####[facility] LABCLIA [id number] [place] [address] [place] Bilirubin [Mass/Vol] 0.5 mg/dL Normal 0.2-1.3 [facility] Comment on above: Order Comment: Speci men Type: BLOOD SPECIMENOrdering Facility: [facility] Address: [address] [place] [address] Performed By: #### 2 4323-8 ####[facility] LABCLIA [id number] [place] [address] [place] Calcium [Mass/Vol] 9.9 mg/dL Normal 8.5-10.2 [facility] Comment on above: Order Comment: Speci men Type: BLOOD SPECIMENOrdering Facility: [facility] Address: [address] Performed By: #### 2 4323-8 ####[facility] LABCLIA [id number] [place] [address] [place] Chloride [Moles/Vol] 106 mmol/L High 97-105 [facility] Comment on above: Order Comment: Speci men Type: BLOOD SPECIMENOrdering Facility: [facility] Address: [address] [place] [address] Performed By: #### 2 4323-8 ####[facility] LABCLIA [id number] [place] [address] [place] CO2 [Moles/Vol] 27 mmol/L Normal 22-30 [facility] Comment on above: Order Comment: Speci men Type: BLOOD SPECIMENOrdering Facility: [facility] Address: [address] [place], [place] [address] Performed By: #### 2 4323-8 ####[facility] LABCLIA [id number] [place] [address] [place] Creatinine [Mass/Vol] 1.22 mg/dL Normal 0.73-1.22 [facility] Comment on above: Order Comment: Speci men Type: BLOOD SPECIMENOrdering Facility: [facility] Address: [address] Performed By: #### 2 4323-8 ####[facility] LABCLIA [id number] [place] [address] [place] Creatinine and Glomerular filtration rate.predicted panel (S/P/Bld) 68 mL/min/1.73m??? Normal >=60 [facility] Comment on above: Order Comment: Speci men Type: BLOOD SPECIMENOrdering Facility: [facility] Address: [address] [id number] Result Comment: Laeh mated Glomerular Filtration Rate (eGFR) is calculated [...] actual GFR. Performed By: #### 2 4323-8 ####[facility] LABCLIA [id number] [place] [address] [place] Glucose [Mass/Vol] 111 mg/dL High 74-99 [facility] Comment on above: Order Comment: Shahrzad dumont Type: BLOOD SPECIMENOrdering Facility: [facility] Address: [address] [address] Result Comment: The [place] Diabetes Association (ADA) provides guidance for cutoff [...] Standards of Medical Care in Diabetes 2016, [place] [employer]. Diabetes Care. 2016.39(Suppl 1). Performed By: #### 2 4323-8 ####[facility] LABCLIA [id number] [place] [address] [place] Potassium [Moles/Vol] 4.2 mmol/L Normal 3.7-5.1 [facility] Comment on above: Order Comment: Shahrzad dumont Type: BLOOD SPECIMENOrdering Facility: [facility] Address: [address] [address] Performed By: #### 2 4323-8 ####[facility] LABCLIA [id number] [place] [address] [place] Protein [Mass/Vol] 7.0 g/dL Normal 6.3-8.0 [facility] Comment on above: Order Comment: Speci men Type: BLOOD SPECIMENOrdering Facility: [facility] Address: [address] [place] [address] Performed By: #### 2 4323-8 ####[facility] LABCLIA [id number] [place] [address] [place] Sodium [Moles/Vol] 143 mmol/L Normal 136-144 [facility] Comment on above: Order Comment: Speci men Type: BLOOD SPECIMENOrdering Facility: [facility] Address: [address] [place] [address] Performed By: #### 2 4323-8 ####[facility] LABIA [id number] [address] [place] OF [facility] Urea nitrogen [Mass/Vol] 22 mg/dL Normal 9-24 [facility] Comment on above: Order Comment: Speci men Type: BLOOD SPECIMENOrdering Facility: [facility] Address: [address] [place] [address] Performed By: #### 2 4323-8 ####[facility] LABIA [id number] [address] [place] DPQ01es 11-21-2022 ECG01 Ventricular Rate : 6 5 BPM Atrial Rate : 65 BPM P-R Interval : 180 ms QRS Duration : 98 ms Q-T Interval : 440 ms QTC Calculation(Bazett) : 457 ms Calculated P [place] : 0 degrees Calculated R [place] : -10 degrees Calculated T [place] : 49 degrees NORMAL SINUS RHYTHM NORMAL ECG Confirmed by SHANIA RESTREPO M.D. ([id number]) on 11/22/2022 12:00:34 PM NAME : SUKHDEEP SIMENTAL PID : [id number] : 1965 Gender : Male Race : ORD : Procedure Date : Nov 21 2022 10:59:49 Edit Date : Nov 22 2022 12:00:38 Diagnosis: NORMAL SINUS RHYTHM NORMAL ECG Confirmed by SHANIA RESTREPO M.D. ([id number]) on 11/22/2022 12:00:34 PM Test Reason : SURGERY Location : 545 : [facility] Overread By : SHANIA RESTREPO M.D. Edited By : SHANIA RESTREPO M.D. Referred By : THOMAS MATHEW Acquired by : Santiago DANIELLE [facility] HISTORY PHYSICALon HISTORY PHYSICAL HNO ID: [id number] Author: Maite Galloway APRN.TAPEMAN Service: ? Author Type: Nurse Practitioner Type: [...] pain. Skin: (more content not included)... Normal [facility] HbA1c (Bld)on 11-21-2022 Average glucose Estimated from glycated hemoglobin (Bld) [Mass/Vol] 111 mg/dL Normal [facility] Comment on above: Order Comment: Shahrzad dumont Type: BLOOD SPECIMENOrdering Facility: [facility] Address: [address] [address] Result Comment: eAG: (Estimated average glucose) is a calculated value from HgbA1c and is inside technical sales representative of the average blood glucose level in the last 2-3 month period. Performed By: #### 5 5454-3 ####[facility] LABCLIA [id number] [place] [address] [place] HbA1c (Bld) [Mass fraction] 5.5 % Normal 4.3-5.6 [facility] Comment on above: Order Comment: Shahrzad dumont Type: BLOOD SPECIMENOrdering Facility: [facility] Address: [address] [address] Result Comment: [place] Diabetes Association guidelines indicate that patients with HgbA1c in the range 5.7-6.4% are at increased risk for development of diabetes, and intervention by lifestyle modification may be beneficial. HgbA1c greater or equal to 6.5% is considered diagnostic of diabetes. Performed By: #### 5 5454-3 ####[facility] LABCLIA [id number] [address] OF [place] TYPE AND SCREEN,30 DAYon ABO A Normal [facility] Comment on above: Order Comment: Speci men Type: BLOOD SPECIMENOrdering Facility: [facility] Address: [address] [place] [address] Performed By: #### T SCR30 ####[facility] BLOOD BANKCLIA [id number] [address] HISTORICAL AB SCR STATUS Negative Normal [facility] Comment on above: Order Comment: Speci men Type: BLOOD SPECIMENOrdering Facility: [facility] Address: [address] [place] [address] Performed By: #### T SCR30 ####[facility] BLOOD BANKCLIA [id number] [address] Rh Nom (Bld) Negative Normal [facility] Comment on above: Order Comment: Speci men Type: BLOOD SPECIMENOrdering Facility: [facility] Address: [address] [place] [address] Performed By: #### T SCR30 ####[facility] BLOOD BANKCLIA [id number] [address] ABD/PELVIS WO CONon 07-06 CT [...] by: OBIE TSE Date: 2022-07-06 13:19 Normal [facility] PTH INTACTon 06-12-2022 PTH, Intact 38 pg/mL Normal 15-65 [facility] Comment on above: Performed By: #### P T #### [facility] [address] [place] [address] Dr. Hugh Landis FERRITINon 06-11-2022 Ferritin [Mass/Vol] 96.0 ng/mL Normal 26.0-388.0 [facility] Comment on above: Performed By: #### P T #### [facility] [address] [place] [address] Dr. Hugh Landis HEMOGRAM AND PLATELon 2022 Hematocrit (Bld) [Volume fraction] 39.1 % Critically low 42.0-54.0 [facility] Comment on above: Performed By: #### H H #### [facility] [address] [place] [address] Dr. Hugh Landis Hemoglobin (Bld) [Mass/Vol] 13.3 g/dL Critically low 14.0-18.0 [facility] Comment on above: Performed By: #### H H #### [facility] [address] [place] [address] Dr. Hugh Landis MCH (RBC) [Entitic mass] 30.5 pg Normal 25.9-34.0 [facility] Comment on above: Performed By: #### H H #### [facility] [address] [place] [address] Dr. Hugh Landis MCHC (RBC) [Mass/Vol] 34.0 g/dL Normal 29.9-35.2 [facility] Comment on above: Performed By: #### H H #### [facility] [address] [place] [address] Dr. Hugh Landis MCV (RBC) [Entitic vol] 89.7 fL Normal 80.0-94.0 [facility] Comment on above: Performed By: #### H H #### [facility] [address] [place] [address] Dr. Hugh Landis PLT 230 103/ul Normal 150-450 [facility] Comment on above: Performed By: #### H H #### [facility] [address] [address] [address] Hugh Landis RBC 4.36 106/ul Critically low 4.70-6.10 [facility] Comment on above: Performed By: #### H H #### [facility] [address] [address] [address] Hugh Landis WBC 4.8 103/ul Normal 4.0-11.0 [facility] Comment on above: Performed By: #### H H #### [facility] [address] [place] [address] Dr. Hugh Landis IRON AND TIBCon 06-11-2022 % SATURATION 55.0 % Normal [facility] Comment on above: Performed By: #### P T #### [facility] [address] [place] [address] Dr. Hugh Landis Iron [Mass/Vol] 137.0 ug/dL Normal 65.0-175.0 [facility] Comment on above: Performed By: #### P T #### [facility] [address] [place] [address] Dr. Hugh Landis TIBC DIRECT 249.0 ug/dL Critically low 250.0-450.0 [facility] Comment on above: Performed By: #### P T #### [facility] [address] [place] [address] Dr. Hugh Landis MAGNESIUMon 06-11-2022 Magnesium [Mass/Vol] 1.9 mg/dL Normal 1.8-2.4 [facility] Comment on above: Performed By: #### P TT #### [facility] [address] [address] [address] Hugh Landis RENAL FUNCTION PANELon 06-11 Albumin [Mass/Vol] 3.5 g/dL Normal 3.4-5.0 [facility] Comment on above: Performed By: #### P TT #### [facility] [address] [place] [address] Dr. Hugh Landis Calcium [Mass/Vol] 9.5 mg/dL Normal 8.5-10.1 [facility] Comment on above: Performed By: #### P TT #### [facility] [address] [place] [address] Dr. Hugh Landis Chloride [Moles/Vol] 107 mmol/L Normal 98-107 [facility] Comment on above: Performed By: #### P TT #### [facility] [address] [place] [address] Dr. Hugh Landis CO2 [Moles/Vol] 30.9 mmol/L Normal 21.0-32.0 [facility] Comment on above: Performed By: #### P TT #### [facility] [address] [place] [address] Dr. Hugh Landis Creatinine [Mass/Vol] 1.41 mg/dL Critically high 0.70-1.30 [facility] Comment on above: Performed By: #### P TT #### [facility] [address] [place] [address] Dr. Hugh Landis EGFR-AF CHINESE >60 Normal >=60 [facility] Comment on above: Performed By: #### P TT #### [facility] [address] [place] [address] Dr. Hugh Landis EGFR-NON AF CHINESE 52 mL/min/1.73m2 Critically low >=60 [facility] Comment on above: Performed By: #### P TT #### [facility] [address] [place] [address] Dr. Hugh Landis Glucose [Mass/Vol] 118 mg/dL Critically high 74-106 [facility] Comment on above: Performed By: #### P TT #### [facility] [address] [address] [address] Hugh Landis Phosphate [Mass/Vol] 3.0 mg/dL Normal 2.6-4.7 [facility] Comment on above: Performed By: #### P TT #### [facility] [address] [address] [address] Hugh Landis Potassium [Moles/Vol] 3.9 mmol/L Normal 3.5-5.1 [facility] Comment on above: Performed By: #### P TT #### [facility] [address] [place] [address] Dr. Hugh Landis Sodium [Moles/Vol] 143 mmol/L Normal 136-145 [facility] Comment on above: Performed By: #### P TT #### [facility] [address] [place] [address] Dr. Hugh Landis Urea nitrogen [Mass/Vol] 19.0 mg/dL Critically high 7.0-18.0 [facility] Comment on above: Performed By: #### P TT #### [facility] [address] [place] [address] Dr. Hugh Landis UA RANDOM W/MICROSCOPICon BACTERIA NONE SEEN Normal NONE SEEN [facility] Comment on above: Performed By: #### P T #### [facility] [address] [place] [address] Dr. Hugh Landis Bilirubin Ql (U) Negative Normal NEGATIVE [facility] Comment on above: Performed By: #### P T #### [facility] [address] [place] [address] Dr. Hugh Landis CAST NONE SEEN Normal NONE SEEN [facility] Comment on above: Performed By: #### P T #### [facility] [address] [place] [address] Dr. Hugh Landis Clarity (U) CLEAR Normal CLEAR [facility] Comment on above: Performed By: #### P T #### [facility] [address] [place] [address] Dr. Hugh Landis Color (U) YELLOW Normal YELLOW [facility] Comment on above: Performed By: #### P T #### [facility] [address] [place] [address] Dr. Hugh Landis Crystals LM Nom (Urine sed) NONE SEEN Normal NONE SEEN [facility] Comment on above: Performed By: #### P T #### [facility] [address] [place] [address] Dr. Hugh Landis Epithelial cells LM Ql (Urine sed) FEW Abnormal NONE SEEN /RARE The [facility] Comment on above: Performed By: #### P T #### [facility] [address] [place] [address] Dr. Hugh Landis Glucose Ql (U) Negative Normal NEGATIVE [facility] Comment on above: Performed By: #### P T #### [facility] [address] [place] [address] Dr. Hugh Landis Hemoglobin Ql (U) Negative Normal NEGATIVE [facility] Comment on above: Performed By: #### P T #### [facility] [address] [place] [address] Dr. Hugh Landis Ketones Ql (U) TRACE Abnormal NEGATIVE [facility] Comment on above: Performed By: #### P T #### [facility] [address] [place] [address] Dr. Hugh Landis LEUKOCYTES Negative Normal NEGATIVE [facility] Comment on above: Performed By: #### P T #### [facility] [address] [place] [address] Dr. Hugh Landis MUCOUS MODERATE Abnormal NONE SEEN [facility] Comment on above: Performed By: #### P T #### [facility] [address] [place] [address] Dr. Hugh Landis Nitrite Ql (U) Negative Normal NEGATIVE [facility] Comment on above: Performed By: #### P T #### [facility] [address] [place] [address] Dr. Hugh Landis pH (U) 5.0 [pH] Normal 5-9 [facility] Comment on above: Performed By: #### P T #### [facility] [address] [place] [address] Dr. Hugh Landis RBC NONE SEEN Abnormal 0-2 [facility] Comment on above: Performed By: #### P T #### [facility] [address] [place] [address] Dr. Hugh Landis SPEC GRAVITY 1.025 Normal 1.005-<=1.02 5 [facility] Comment on above: Performed By: #### P T #### [facility] [address] [place] [address] Dr. Hugh Landis UA PROTEIN TRACE Normal NEGATIVE/ TRACE [facility] Comment on above: Performed By: #### P T #### [facility] [address] [place] [address] Dr. Hugh Landis Urobilinogen Qn (U) 0.2 {Dahiana'U}/dL Normal 0.2 - 1. 0 [facility] Comment on above: Performed By: #### P T #### [facility] [address] [place] [address] Dr. Hugh Landis WBC NONE SEEN Normal NONE SEEN The [facility] Comment on above: Performed By: #### P T #### [facility] [address] [place] [address] Dr. Hugh Landis URIC ACID SERUMon 06-11-2022 Urate [Mass/Vol] 7.5 mg/dL Critically high 3.5-7.2 [facility] Comment on above: Performed By: #### P TT #### [facility] [address] [place] [address] Dr. Hugh Landis VITAMIN D 25 OHon 06-11-2022 VIT D 25-OH 35.0 ng/mL Normal [facility] Comment on above: Performed By: #### P T #### [facility] [address] [place] [address] Dr. Hugh Landis VIT D RANGES SEE BELOW Normal [facility] Comment on above: Result Comment: <20 ng/mL Vit D deficient 20 - <30 ng/mL Vit D insufficient 30 - 100 ng/mL Vit D sufficient >100 ng/mL Potential Toxicity Performed By: #### P T #### [facility] [address] [place] [address] Dr. Hugh Landis PROTIMEon 03-15-2022 INR Coag (PPP) [Relative time] 1.11 {INR} Normal [facility] Comment on above: Performed By: #### P T #### [facility] [address] [place] [address] Dr. Hugh Landis INR GUIDELINES SEE BELOW Normal [facility] Comment on above: Result Comment: VIC RED INR: 2.0 - 3.0 CONDITIONS NOT LISTED BELOW 2.5 - 3.5 FOR PROSTHETIC HEART VALVE REPLACEMENT 2.5 - 3.5 RECURRENT THROMBOSIS Performed By: #### P T #### [facility] [address] [place] [address] Dr. Hugh Landis PT Coag (PPP) [Time] 11.7 s Critically high 9.0-11.6 [facility] Comment on above: Performed By: #### P T #### [facility] [address] [place] [address] Dr. Hugh Landis UA (CLEAN/CATCH) SALES REPRESENTATIVE JEWELRY/MICRO I F IND.on 03-15-2022 Bilirubin Ql (U) Negative Normal NEGATIVE [facility] Comment on above: Performed By: #### P TT #### [facility] [address] [place] [address] Dr. Hugh Landis Clarity (U) CLEAR Normal CLEAR [facility] Comment on above: Performed By: #### P TT #### [facility] [address] [place] [address] Dr. Hugh Landis Color (U) YELLOW Normal YELLOW [facility] Comment on above: Performed By: #### P TT #### [facility] [address] [place] [address] Dr. Hugh Landis Glucose Ql (U) Negative Normal NEGATIVE [facility] Comment on above: Performed By: #### P TT #### [facility] [address] [place] [address] Dr. Hugh Landis Hemoglobin Ql (U) SMALL Abnormal NEGATIVE [facility] Comment on above: Performed By: #### P TT #### [facility] [address] [place] [address] Dr. Hugh Landis Ketones Ql (U) Negative Normal NEGATIVE [facility] Comment on above: Performed By: #### P TT #### [facility] [address] [place] [address] Dr. Huhg Landis LEUKOCYTES Negative Normal NEGATIVE [facility] Comment on above: Performed By: #### P TT #### [facility] [address] [address] [address] Hugh Landis Nitrite Ql (U) Negative Normal NEGATIVE [facility] Comment on above: Performed By: #### P TT #### [facility] [address] [place] [address] Dr. Hugh Landis pH (U) 5.5 [pH] Normal 5-9 [facility] Comment on above: Performed By: #### P TT #### [facility] [address] [place] [address] Dr. Hugh Landis SPEC GRAVITY 1.025 Normal 1.005-<=1.02 5 [facility] Comment on above: Performed By: #### P TT #### [facility] [address] [place] [address] Dr. Hugh Landis UA PROTEIN Negative Normal NEGATIVE/ TRACE [facility] Comment on above: Performed By: #### P TT #### [facility] [address] [place] [address] Dr. Hugh Landis UR MICRO IND INDICATED Normal [facility] Comment on above: Performed By: #### P TT #### [facility] [address] [place] [address] Dr. Hugh Landis Urobilinogen Qn (U) 0.2 {Dahiana'U}/dL Normal 0.2 - 1. 0 [facility] Comment on above: Performed By: #### P TT #### [facility] [address] [place] [address] Dr. Hugh Landis URINE MICROSCOPIC ONLYon BACTERIA TRACE Abnormal NONE SEEN [facility] Comment on above: Performed By: #### P TT #### [facility] [address] [place] [address] Dr. Hugh Landis Bacteria identified Cx Nom (U) NOT INDICATED Normal The [facility] Comment on above: Performed By: #### P TT #### [facility] [address] [place] [address] Dr. Hugh Landis CAST NONE SEEN Normal NONE SEEN [facility] Comment on above: Performed By: #### P TT #### [facility] [address] [place] [address] Dr. Hugh Landis Crystals LM Nom (Urine sed) NONE SEEN Normal NONE SEEN [facility] Comment on above: Performed By: #### P TT #### [facility] [address] [place] [address] Dr. Hugh Landis Epithelial cells LM Ql (Urine sed) RARE Normal NONE SEEN /RARE The [facility] Comment on above: Performed By: #### P TT #### [facility] [address] [place] [address] Dr. Hugh Landis MUCOUS NONE SEEN Normal NONE SEEN [facility] Comment on above: Performed By: #### P TT #### [facility] [address] [place] [address] Dr. Hugh Landis RBC 0-2 Normal 0-2 [facility] Comment on above: Performed By: #### P TT #### [facility] [address] [place] [address] Dr. Hugh Landis WBC 0-2 Abnormal NONE SEEN [facility] Comment on above: Performed By: #### P TT #### [facility] [address] [place] [address] Dr. Hugh Landis MRSA NARES #1on 03-08-2022 MRSA NARES #1 Culture Observations : NO GROWTH OF MRSA AT 48 HOURS. Normal The [facility] Comment on above: Performed By: #### B MP #### [facility] [address] [place] [address] Dr. Hugh Landis PROF CHEM 8 (BAS METB)on Anion gap [Moles/Vol] 9.9 mmol/L Normal [facility] Comment on above: Performed By: #### C MP, LIPID, TSH #### [facility] [address] [place] [address] Dr. Hugh Landis Calcium [Mass/Vol] 9.4 mg/dL Normal 8.5-10.1 [facility] Comment on above: Performed By: #### C MP, LIPID, TSH #### [facility] [address] [address] [address] Hugh Landis Chloride [Moles/Vol] 103 mmol/L Normal 98-107 [facility] Comment on above: Performed By: #### C MP, LIPID, TSH #### [facility] [address] [place] [address] Dr. Hugh Landis CO2 [Moles/Vol] 31.6 mmol/L Normal 21.0-32.0 [facility] Comment on above: Performed By: #### C MP, LIPID, TSH #### [facility] [address] [place] [address] Dr. Hugh Landis Creatinine [Mass/Vol] 1.25 mg/dL Normal 0.70-1.30 [facility] Comment on above: Performed By: #### C MP, LIPID, TSH #### [facility] [address] [place] [address] Dr. Hugh Landis EGFR-AF CHINESE >60 Normal >=60 [facility] Comment on above: Performed By: #### C MP, LIPID, TSH #### [facility] [address] [place] [address] Dr. Hugh Landis EGFR-NON AF CHINESE 59 mL/min/1.73m2 Critically low >=60 [facility] Comment on above: Performed By: #### C MP, LIPID, TSH #### [facility] [address] [place] [address] Dr. Hugh Landis Glucose [Mass/Vol] 110 mg/dL Critically high 74-106 [facility] Comment on above: Performed By: #### C MP, LIPID, TSH #### [facility] [address] [place] [address] Dr. Hugh Landis Potassium [Moles/Vol] 3.5 mmol/L Normal 3.5-5.1 [facility] Comment on above: Performed By: #### C MP, LIPID, TSH #### [facility] [address] [place] [address] Dr. Hugh Landis Sodium [Moles/Vol] 141 mmol/L Normal 136-145 [facility] Comment on above: Performed By: #### C MP, LIPID, TSH #### [facility] [address] [place] [address] Dr. Hugh Landis Urea nitrogen [Mass/Vol] 27.0 mg/dL Critically high 7.0-18.0 [facility] Comment on above: Performed By: #### C MP, LIPID, TSH #### [facility] [address] [address] [address] Hugh Landis Urea nitrogen/Creatinine [Mass ratio] 21.6 mg/mg Normal [facility] Comment on above: Performed By: #### C MP, LIPID, TSH #### [facility] [address] [place] [address] Dr. Hugh Landis PTTon 03-08-2022 aPTT Coag (Bld) [Time] 27.0 s Normal 22.3-36.2 [facility] Comment on above: Performed By: #### P TT #### [facility] [address] [place] [address] Dr. Hugh Landis INSULINon 01-25-2022 Insulin 11.1 uIU/mL Normal 2.6-24.9 [facility] Comment on above: Performed By: #### U TOMAS, TSH, CMP, LIPID, T7 #### [facility] [address] [place] [address] Dr. Hugh Landis CBC AUTO DIFFon 01-24-2022 BASO # 0.1 103/ul Normal 0.0-0.1 [facility] Comment on above: Performed By: #### C MP, LIPID, TSH #### [facility] [address] [place] [address] Dr. Hugh Landis Basophils/100 WBC (Bld) 1.3 % Normal 0.2-2.0 [facility] Comment on above: Performed By: #### C MP, LIPID, TSH #### [facility] [address] [place] [address] Dr. Hugh Landis EO # 0.2 103/ul Normal 0.0-0.7 [facility] Comment on above: Performed By: #### C MP, LIPID, TSH #### [facility] [address] [place] [address] Dr. Hugh Landis Eosinophils/100 WBC (Bld) 4.7 % Normal 0.9-7.0 [facility] Comment on above: Performed By: #### C MP, LIPID, TSH #### [facility] [address] [place] [address] Dr. Hugh Landis Erythrocyte distribution width (RBC) [Ratio] 12.6 % Normal 11.0-15.0 [facility] Comment on above: Performed By: #### C MP, LIPID, TSH #### [facility] [address] [place] [address] Dr. Hugh Landis Hematocrit (Bld) [Volume fraction] 39.1 % Critically low 42.0-54.0 [facility] Comment on above: Performed By: #### C MP, LIPID, TSH #### [facility] [address] [place] [address] Dr. Hugh Landis Hemoglobin (Bld) [Mass/Vol] 12.4 g/dL Critically low 14.0-18.0 [facility] Comment on above: Performed By: #### C MP, LIPID, TSH #### [facility] [address] [place] [address] Dr. Hugh Landis IG # 0.01 10e3/ul Normal 0.00-0.03 [facility] Comment on above: Performed By: #### C MP, LIPID, TSH #### [facility] [address] [place] [address] Dr. Hugh Landis IG % 0.2 % Normal 0.0-0.5 [facility] Comment on above: Performed By: #### C MP, LIPID, TSH #### [facility] [address] [address] [address] Hugh Landis LYMPH # 0.9 103/ul Critically low 1.2-3.8 [facility] Comment on above: Performed By: #### C MP, LIPID, TSH #### [facility] [address] [address] [address] Hugh Landis Lymphocytes/100 WBC (Bld) 19.4 % Critically low 20.5-60.0 [facility] Comment on above: Performed By: #### C MP, LIPID, TSH #### [facility] [address] [address] [address] Hugh Landis MANUAL DIFF REQ NO Normal The [facility] Comment on above: Performed By: #### C MP, LIPID, TSH #### [facility] [address] [place] [address] Dr. Hugh Landis MCH (RBC) [Entitic mass] 29.2 pg Normal 25.9-34.0 [facility] Comment on above: Performed By: #### C MP, LIPID, TSH #### [facility] [address] [place] [address] Dr. Hugh Landis MCHC (RBC) [Mass/Vol] 31.7 g/dL Normal 29.9-35.2 [facility] Comment on above: Performed By: #### C MP, LIPID, TSH #### [facility] [address] [address] [address] Hugh Landis MCV (RBC) [Entitic vol] 92.0 fL Normal 80.0-94.0 [facility] Comment on above: Performed By: #### C MP, LIPID, TSH #### [facility] [address] [address] [address] Hugh Landis MONO # 0.5 103/ul Normal 0.3-0.8 [facility] Comment on above: Performed By: #### C MP, LIPID, TSH #### [facility] [address] [address] [address] Hugh Landis Monocytes/100 WBC (Bld) 9.6 % Normal 1.7-12.0 [facility] Comment on above: Performed By: #### C MP, LIPID, TSH #### [facility] [address] [address] [address] Hugh Landis NEUT # 3.0 103/ul Normal 1.4-6.5 [facility] Comment on above: Performed By: #### C MP, LIPID, TSH #### [facility] [address] [place] [address] Dr. Hugh Landis Neutrophils/100 WBC (Bld) 64.8 % Normal 43.0-75.0 [facility] Comment on above: Performed By: #### C MP, LIPID, TSH #### [facility] [address] [place] [address] Dr. Hugh Landis Platelet mean volume (Bld) [Entitic vol] 9.4 fL Critically low 9.5-13.5 [facility] Comment on above: Performed By: #### C MP, LIPID, TSH #### [facility] [address] [place] [address] Dr. Hugh Landis PLT 232 103/ul Normal 150-450 [facility] Comment on above: Performed By: #### C MP, LIPID, TSH #### [facility] [address] [place] [address] Dr. Hugh Landis RBC 4.25 106/ul Critically low 4.70-6.10 [facility] Comment on above: Performed By: #### C MP, LIPID, TSH #### [facility] [address] [place] [address] Dr. Hugh Landis WBC 4.7 103/ul Normal 4.0-11.0 [facility] Comment on above: Performed By: #### C MP, LIPID, TSH #### [facility] [address] [place] [address] Dr. Hugh Landis FREE THYROXINE INDEX T7on -2021 FTI 2.65 Normal 1.30-4.50 [facility] Comment on above: Performed By: #### B MP #### [facility] [address] [place] [address] Dr. Hugh Landis T3U 34.0 % Normal 33.0-40.0 [facility] Comment on above: Performed By: #### B MP #### [facility] [address] [address] [address] Hugh Landis T4 [Mass/Vol] 7.80 ug/dL Normal 4.50-12.10 [facility] Comment on above: Performed By: #### B MP #### [facility] [address] [address] [address] Hugh Landis GLYCOHEMOGLOBIN A1Con 2021 ADA RECOMMENDATION SEE BELOW Normal [facility] Comment on above: Result Comment: ADA RECOMMENDED LIMIT 4.0 - 6.0 ADA THERAPEUTIC TARGET < 7.0 ACTION SUGGESTED > 7.0 Performed By: #### C MP, LIPID, TSH #### [facility] [address] [place] [address] Dr. Hugh Landis Glucose [Mass/Vol] 123 mg/dL Normal [facility] Comment on above: Performed By: #### C MP, LIPID, TSH #### [facility] [address] [place] [address] Dr. Hugh Landis HbA1c (Bld) [Mass fraction] 5.9 % Normal 4.5-6.2 [facility] Comment on above: Performed By: #### C MP, LIPID, TSH #### [facility] [address] [place] [address] Dr. Hugh Landis LIPID PROFILEon 01-24-2022 CHOL-HDL RATIO NORM SEE BELOW Normal [facility] Comment on above: Result Comment: 3.3 - 4.4 LOW RISK 4.4 - 7.1 AVERAGE RISK 7.1 - 11.0 MODERATE RISK >11.0 HIGH RISK Performed By: #### U TOMAS, TSH, CMP, LIPID, T7 #### [facility] [address] [place] [address] Dr. Hugh Landis Cholesterol [Mass/Vol] 179 mg/dL Normal <=200 [facility] [facility] Comment on above: Performed By: #### U TOMAS, TSH, CMP, LIPID, T7 #### [facility] [address] [place] [address] Dr. Hugh Landis Cholesterol in HDL [Mass/Vol] 46 mg/dL Normal 40-60 [facility] Comment on above: Performed By: #### U TOMAS, TSH, CMP, LIPID, T7 #### [facility] [address] [address] [address] Hugh Landis Cholesterol in LDL [Mass/Vol] 100.4 mg/dL Normal [facility] Comment on above: Performed By: #### U TOMAS, TSH, CMP, LIPID, T7 #### [facility] [address] [address] [address] Hugh Landis Cholesterol.total/Ch olesterol in HDL [Mass ratio] 3.9 {ratio} Normal [facility] Comment on above: Performed By: #### U TOMAS, TSH, CMP, LIPID, T7 #### [facility] [address] [address] [address] Hugh Landis HDL NORMAL > or = 60 mg/dl - LO W CARDIOVASCULAR RISK <40 mg/dl - HIGH CARDIOVASCULAR RISK Normal [facility] Comment on above: Performed By: #### U TOMAS, TSH, CMP, LIPID, T7 #### [facility] [address] [address] [address] Hugh Landis LDL CALC NORMAL SEE BELOW Normal [facility] Comment on above: Result Comment: <100 mg/dl OPTIMAL 100 - 129 mg/dl NEAR OR ABOVE OPTIMAL 130 - 159 mg/dl BORDERLINE HIGH 160 - 189 mg/dl HIGH >190 mg/dl VERY HIGH Performed By: #### U TOMAS, TSH, CMP, LIPID, T7 #### [facility] [address] [address] [address] Hugh Landis Triglyceride [Mass/Vol] 163 mg/dL Critically high <=150 [facility] Comment on above: Performed By: #### U TOMAS, TSH, CMP, LIPID, T7 #### [facility] [address] [address] [address] Hugh Landis VLDL CALC 32.6 mg/dL Normal [facility] Comment on above: Performed By: #### U TOMAS, TSH, CMP, LIPID, T7 #### [facility] [address] [place] [address] Dr. Hugh Landis PROF 14(COMP METB)on 022 Albumin [Mass/Vol] 3.6 g/dL Normal 3.4-5.0 [facility] Comment on above: Performed By: #### U TOMAS, TSH, CMP, LIPID, T7 #### [facility] [address] [place] [address] Dr. Hugh Landis Albumin/Globulin [Mass ratio] 0.9 {ratio} Normal [facility] Comment on above: Performed By: #### U TOMAS, TSH, CMP, LIPID, T7 #### [facility] [address] [place] [address] Dr. Hugh Landis ALP [Catalytic activity/Vol] 81 U/L Normal 46-116 [facility] Comment on above: Performed By: #### U TOMAS, TSH, CMP, LIPID, T7 #### [facility] [address] [place] [address] Dr. Hugh Landis ALT [Catalytic activity/Vol] 19 U/L Normal 16-63 [facility] Comment on above: Performed By: #### U TOMAS, TSH, CMP, LIPID, T7 #### [facility] [address] [place] [address] Dr. Hugh Landis Anion gap [Moles/Vol] 13.4 mmol/L Normal [facility] Comment on above: Performed By: #### U OTMAS, TSH, CMP, LIPID, T7 #### [facility] [address] [place] [address] Dr. Hugh Landis AST [Catalytic activity/Vol] 16 U/L Normal 15-37 [facility] Comment on above: Performed By: #### U TOMAS, TSH, CMP, LIPID, T7 #### [facility] [address] [place] [address] Dr. Hugh Landis Bilirubin [Mass/Vol] 0.5 mg/dL Normal 0.2-1.0 [facility] Comment on above: Performed By: #### U TOMAS, TSH, CMP, LIPID, T7 #### [facility] [address] [place] [address] Dr. Hugh Landis Calcium [Mass/Vol] 9.7 mg/dL Normal 8.5-10.1 [facility] Comment on above: Performed By: #### U TOMAS, TSH, CMP, LIPID, T7 #### [facility] [address] [address] [address] Hugh Landis Chloride [Moles/Vol] 105 mmol/L Normal 98-107 [facility] Comment on above: Performed By: #### U TOMAS, TSH, CMP, LIPID, T7 #### [facility] [address] [address] [address] Hugh Landis CO2 [Moles/Vol] 27.4 mmol/L Normal 21.0-32.0 [facility] Comment on above: Performed By: #### U TOMAS, TSH, CMP, LIPID, T7 #### [facility] [address] [address] [address] Hugh Landis Creatinine [Mass/Vol] 1.37 mg/dL Critically high 0.70-1.30 [facility] Comment on above: Performed By: #### U TOMAS, TSH, CMP, LIPID, T7 #### [facility] [address] [address] [address] Hugh Landis EGFR-AF CHINESE >60 Normal >=60 [facility] Comment on above: Performed By: #### U TOMAS, TSH, CMP, LIPID, T7 #### [facility] [address] [address] [address] Hugh Landis EGFR-NON AF CHINESE 53 mL/min/1.73m2 Critically low >=60 [facility] Comment on above: Performed By: #### U TOMAS, TSH, CMP, LIPID, T7 #### [facility] [address] [address] [address] Hugh Landis Globulin (S) [Mass/Vol] 4.0 g/dL Normal [facility] Comment on above: Performed By: #### U TOMAS, TSH, CMP, LIPID, T7 #### [facility] [address] [address] [address] Hugh Landis Glucose [Mass/Vol] 113 mg/dL Critically high 74-106 [facility] Comment on above: Performed By: #### U TOMAS, TSH, CMP, LIPID, T7 #### [facility] [address] [address] [address] Hugh Landis Potassium [Moles/Vol] 3.8 mmol/L Normal 3.5-5.1 [facility] Comment on above: Performed By: #### U TOMAS, TSH, CMP, LIPID, T7 #### [facility] [address] [address] [address] Hugh Landis Protein [Mass/Vol] 7.6 g/dL Normal 6.4-8.2 [facility] Comment on above: Performed By: #### U TOMAS, TSH, CMP, LIPID, T7 #### [facility] [address] [place] [address] Dr. Hugh Landis Sodium [Moles/Vol] 142 mmol/L Normal 136-145 [facility] Comment on above: Performed By: #### U TOMAS, TSH, CMP, LIPID, T7 #### [facility] [address] [place] [address] Dr. Hugh Landis Urea nitrogen [Mass/Vol] 21.0 mg/dL Critically high 7.0-18.0 [facility] Comment on above: Performed By: #### U TOMAS, TSH, CMP, LIPID, T7 #### [facility] [address] [place] [address] Dr. Hugh Landis Urea nitrogen/Creatinine [Mass ratio] 15.3 mg/mg Normal [facility] Comment on above: Performed By: #### U TOMAS, TSH, CMP, LIPID, T7 #### [facility] [address] [place] [address] Dr. Hugh Landis TSHon 01-24-2022 TSH 0.663 uIU/mL Normal 0.358-3.740 [facility] Comment on above: Performed By: #### U TOMAS, TSH, CMP, LIPID, T7 #### [facility] [address] [place] [address] Dr. Hugh Landis URIC ACID SERUMon 01-24-2022 Urate [Mass/Vol] 6.9 mg/dL Normal 3.5-7.2 [facility] Comment on above: Performed By: #### B MP #### [facility] [address] [place] [address] Dr. Hugh Landis VITAMIN D 25 OHon 01-24-2022 VIT D 25-OH 37.0 ng/mL Normal [facility] Comment on above: Performed By: #### P TT #### [facility] [address] [place] [address] Dr. Hugh Landis VIT D RANGES SEE BELOW Normal [facility] Comment on above: Result Comment: <20 ng/mL Vit D deficient 20 - <30 ng/mL Vit D insufficient 30 - 100 ng/mL Vit D sufficient >100 ng/mL Potential Toxicity Performed By: #### P TT #### [facility] [address] [place] [address] Dr. Hugh Landis US KIDNEYSon 12-21-2021 US [...] OBIE TSE Date: 2021-12-21 17:34 Normal [facility] XR ABD FLAT UP_PA Barrett [...] by: AUSTIN LARIOS Date: 2021-12-21 18:13 Normal [facility] Urine culture routineOrdered By: Estephanie Lowry on 12-17-2021 Bacteria identified Cx Nom (U) No Growth 2 Days [facility] Chlamydia trachomatis DNA [P resence] in Specimen by MUKUL with probe detectionOrdered By: Estephanie Lowry on 12-15-2021 C. trachomatis DNA MUKUL+probe Ql (Unsp spec) Negative Negative [facility] Chlamydia/GC/Trich NAAon Chlamydia Trachomotis, MUKUL Negative Normal Negative [facility] Comment on above: Order Comment: Reaso n for Exam Dysuria Performed By: #### G CCHLAMTRI #### [facility] , #### CUU #### [facility] [address] Neisseria Gonorrhoeae, MUKUL Negative Normal Negative [facility] Comment on above: Order Comment: Reaso n for Exam Dysuria Performed By: #### G CCHLAMTRI #### [facility] , #### CUU #### [facility] [address] [place] [address] [place] Trichomonas MUKUL Negative Normal Negative [facility] Comment on above: Order Comment: Reaso n for Exam Dysuria Result Comment: Perf ormed at: =G - [facility] [address] [id number] Statistical Technician: Shoshana Camargo MD, Phone: [phone] PERFORMED BY: [address] [id number] PATHOLOGIST STAFFING MGR SABRA SAUNDERS M.D. Performed By: #### G CCHLAMTRI #### [facility] , #### CUU #### [facility] [address] [id number] [facility] Chlamydia/GC/Trich MUKUL Negative Negative [facility] Other Neisseria gonorrhoeae DNA [P resence] in Specimen by MUKUL with probe detectionOrdered By: Estephanie Lowry on 12-15-2021 N. gonorrhoeae DNA MUKUL+probe Ql (Unsp spec) Negative Negative [facility] Trichomonas vaginalis DNA [P resence] in Specimen by MUKUL with probe detectionOrdered By: Estephanie Lowry on 12-15-2021 T. vaginalis DNA MUKUL+probe Ql (Unsp spec) Negative Negative [facility] Comment on above: Performed at: =[address] [id number] Director: Shoshana Camargo MD, Phone: [phone] Urinalysis - AUTOMATEDon Appearance (U) clear [facility] Other Bilirubin Ql (U) Negative [facility] Other Color (U) orange [facility] [facility] Other Glucose Ql (U) Negative [facility] Other Hemoglobin Ql (U) moderate [facility] Other Ketones Ql (U) Negative [facility] Other Leukocyte esterase Test strip Ql (U) Negative [facility] Other Nitrite Ql (U) Positive [facility] Other pH (U) 5.5 [pH] [facility] Other Protein Ql (U) Negative [facility] Other Specific gravity (U) [Rel density] 1.015 [facility] Other Urobilinogen (U) [Mass/Vol] 0.2 mg/dL [facility] Other Urinalysis - AUTOMATED [facility] [facility] Other Urine Cultureon 12-15-2021 Bacteria identified Cx Nom (U) Reason for Exam Dysuria Urine No Growth 2 Days PERFORMED BY: [place] [address] PATHOLOGIST STAFFING MGR SABRA SAUNDERS M.D. Normal [facility] Comment on above: Performed By: #### G CCHLAMTRI #### [facility] , #### CUU #### [address] Bacteria identified Cx Nom (U) [employer]! [facility] [employer] Other CULTURE URINEon 11-24-2021 CULTURE URINE Culture Observations : NO GROWTH. Normal [facility] Comment on above: Performed By: #### B MP #### [facility] [address] [address] [address] Hugh Landis PROTEIN ELECTROPHERESIS URIN E RANDOMon 11-17-2021 Albumin, U 33.4 % Normal [facility] Comment on above: Performed By: #### C MP, LIPID, TSH #### [facility] [address] [address] [address] Hugh Landis Alpha-1 Globulin U 4.7 % Normal [facility] Comment on above: Performed By: #### C MP, LIPID, TSH #### [facility] [address] [address] [address] Hugh Landis Alpha-2 Glubulin U 18.6 % Normal [facility] Comment on above: Performed By: #### C MP, LIPID, TSH #### [facility] [address] [address] [address] Hugh Landis Beta Globulin, U 19.9 % Normal [facility] Comment on above: Performed By: #### C MP, LIPID, TSH #### [facility] [address] [address] [address] Hugh Landis Gamma Globulin U 23.4 % Normal [facility] Comment on above: Performed By: #### C MP, LIPID, TSH #### [facility] [address] [address] [address] Hugh Landis M-Tariq, % Not Observed Normal Not Observed [facility] Comment on above: Performed By: #### C MP, LIPID, TSH #### [facility] [address] [address] [address] Hugh Landis PDF . Normal [facility] Comment on above: Performed By: #### C MP, LIPID, TSH #### [facility] [address] [address] [address] Hugh Landis Please note: Comment Normal [facility] Comment on above: Result Comment: Prot ein electrophoresis scan will follow via computer, mail, or link trainer delivery. Performed By: #### C MP, LIPID, TSH #### [facility] [address] [address] [address] Hugh Landis Protein (U) [Mass/Vol] 4.9 mg/dL Normal Not Estab. [facility] Comment on above: Performed By: #### C MP, LIPID, TSH #### [facility] [address] [address] [address] Hugh Landis IMMUNOFIXATION(PRINCE),PROTEIN ELEC(PE),FREon 11-16-2021 Albumin [Mass/Vol] 3.4 g/dL Normal 2.9-4.4 [facility] Comment on above: Performed By: #### C MP, LIPID, TSH #### [facility] [address] [address] [address] Hugh Landis Albumin/Globulin [Mass ratio] 1.0 {ratio} Normal 0.7-1.7 [facility] Comment on above: Performed By: #### C MP, LIPID, TSH #### [facility] [address] [address] [address] Hugh Landis Cixnw-3-Nztjzqfx 0.2 g/dL Normal 0.0-0.4 [facility] Comment on above: Performed By: #### C MP, LIPID, TSH #### [facility] [address] [place] [address] Dr. Hugh Landis Hyiii-4-Csmiywnz 1.1 g/dL Critically high 0.4-1.0 [facility] Comment on above: Performed By: #### C MP, LIPID, TSH #### [facility] [address] [place] [address] Dr. Hugh Landis Beta Globulin 1.0 g/dL Normal 0.7-1.3 [facility] Comment on above: Performed By: #### C MP, LIPID, TSH #### [facility] [address] [place] [address] Dr. Hugh Landis Free [place] Lt Chains,S 35.7 mg/L Critically high 3.3-19.4 [facility] Comment on above: Performed By: #### C MP, LIPID, TSH #### [facility] [address] [place] [address] Dr. Hugh Landis Free Lambda Lt Chains,S 21.1 mg/L Normal 5.7-26.3 [facility] Comment on above: Performed By: #### C MP, LIPID, TSH #### [facility] [address] [place] [address] Dr. Hugh Landis Gamma Globulin 1.2 g/dL Normal 0.4-1.8 [facility] Comment on above: Performed By: #### C MP, LIPID, TSH #### [facility] [address] [place] [address] Dr. Hugh Landis Globulin (S) [Mass/Vol] 3.5 g/dL Normal 2.2-3.9 [facility] Comment on above: Performed By: #### C MP, LIPID, TSH #### [facility] [address] [place] [address] Dr. Hugh Landis Immunofixation Result, Serum Comment Normal [facility] Comment on above: Result Comment: No m onoclonality detected. Performed By: #### C MP, LIPID, TSH #### [facility] [address] [address] [address] Hugh Landis Immunoglobulin A, Qn, Serum 228 mg/dL Normal 90-386 [facility] Comment on above: Performed By: #### C MP, LIPID, TSH #### [facility] [address] [address] [address] Hugh Landis Immunoglobulin G, Qn, Serum 1221 mg/dL Normal 603-1613 [facility] Comment on above: Performed By: #### C MP, LIPID, TSH #### [facility] [address] [address] [address] Hugh Landis Immunoglobulin M, Qn, Serum 79 mg/dL Normal 20-172 [facility] Comment on above: Performed By: #### C MP, LIPID, TSH #### [facility] [address] [place] [address] Dr. Hugh Landis [place]/Lambda Ratio, S 1.69 Critically high 0.26-1.65 [facility] Comment on above: Performed By: #### C MP, LIPID, TSH #### [facility] [address] [address] [address] Hugh Landis M-Tariq Not Observed Normal Not Observed [facility] Comment on above: Performed By: #### C MP, LIPID, TSH #### [facility] [address] [address] [address] Hugh Landis PDF . Normal [facility] Comment on above: Performed By: #### C MP, LIPID, TSH #### [facility] [address] [address] [address] Hugh Landis Please note: Comment Normal [facility] Comment on above: Result Comment: Prot ein electrophoresis scan will follow via computer, mail, or link trainer delivery. Performed By: #### C MP, LIPID, TSH #### [facility] [address] [place] [address] Dr. Hugh Landis Protein [Mass/Vol] 6.9 g/dL Normal 6.0-8.5 [facility] Comment on above: Performed By: #### C MP, LIPID, TSH #### [facility] [address] [address] [address] Hugh Landis PROTEIN AND CREA RANDOM UR R ATIOon 11-16-2021 Creatinine, Urine 54.8 mg/dL Normal Not Estab. [facility] Comment on above: Performed By: #### C MP, LIPID, TSH #### [facility] [address] [place] [address] Dr. Hugh Landis Protein (U) [Mass/Vol] 4.1 mg/dL Normal Not Estab. [facility] Comment on above: Performed By: #### C MP, LIPID, TSH #### [facility] [address] [address] [address] Hugh Landis Protein/Creat Ratio 75 mg/g creat Normal 0-200 [facility] Comment on above: Performed By: #### C MP, LIPID, TSH #### [facility] [address] [place] [address] Dr. Hugh Landis PTH INTACTon 11-15-2021 PTH, Intact 39 pg/mL Normal 15-65 [facility] Comment on above: Performed By: #### P T #### [facility] [address] [place] [address] Dr. Hugh Landis UA RANDOM W/MICROSCOPICon BACTERIA NONE SEEN Normal NONE SEEN [facility] Comment on above: Performed By: #### P TT #### [facility] [address] [place] [address] Dr. Hugh Landis Bilirubin Ql (U) Negative Normal NEGATIVE [facility] Comment on above: Performed By: #### P TT #### [facility] [address] [place] [address] Dr. Hugh Landis CAST NONE SEEN Normal NONE SEEN [facility] Comment on above: Performed By: #### P TT #### [facility] [address] [place] [address] Dr. Hugh Landis Clarity (U) CLEAR Normal CLEAR [facility] Comment on above: Performed By: #### P TT #### [facility] [address] [place] [address] Dr. Hugh Landis Color (U) LT. YELLOW Normal YELLOW [facility] Comment on above: Performed By: #### P TT #### [facility] [address] [place] [address] Dr. Hugh Landis Crystals LM Nom (Urine sed) NONE SEEN Normal NONE SEEN [facility] Comment on above: Performed By: #### P TT #### [facility] [address] [place] [address] Dr. Hugh Landis Epithelial cells LM Ql (Urine sed) NONE SEEN Normal NONE SEEN /RARE [facility] Comment on above: Performed By: #### P TT #### [facility] [address] [place] [address] Dr. Hugh Landis Glucose Ql (U) Negative Normal NEGATIVE [facility] Comment on above: Performed By: #### P TT #### [facility] [address] [place] [address] Dr. Hugh Landis Hemoglobin Ql (U) MODERATE Abnormal NEGATIVE [facility] Comment on above: Performed By: #### P TT #### [facility] [address] [place] [address] Dr. Hugh Landis Ketones Ql (U) Negative Normal NEGATIVE [facility] Comment on above: Performed By: #### P TT #### [facility] [address] [place] [address] Dr. Hugh Landis LEUKOCYTES Negative Normal NEGATIVE [facility] Comment on above: Performed By: #### P TT #### [facility] [address] [place] [address] Dr. Hugh Landis MUCOUS NONE SEEN Normal NONE SEEN [facility] Comment on above: Performed By: #### P TT #### [facility] [address] [place] [address] Dr. Hugh Landis Nitrite Ql (U) Negative Normal NEGATIVE [facility] Comment on above: Performed By: #### P TT #### [facility] [address] [place] [address] Dr. Hugh Landis pH (U) 5.5 [pH] Normal 5-9 [facility] Comment on above: Performed By: #### P TT #### [facility] [address] [place] [address] Dr. Hugh Landis RBC 5-10 Abnormal 0-2 [facility] Comment on above: Performed By: #### P TT #### [facility] [address] [place] [address] Dr. Hugh Landis SPEC GRAVITY 1.010 Normal 1.005-<=1.02 5 [facility] Comment on above: Performed By: #### P TT #### [facility] [address] [place] [address] Dr. Hugh Landis UA PROTEIN Negative Normal NEGATIVE/ TRACE [facility] Comment on above: Performed By: #### P TT #### [facility] [address] [place] [address] Dr. Hugh Landis Urobilinogen Qn (U) 0.2 {Dahiana'U}/dL Normal 0.2 - 1. 0 The [facility] Comment on above: Performed By: #### P TT #### [facility] [address] [place] [address] Dr. Hugh Landis WBC 0-2 Abnormal NONE SEEN The [facility] Comment on above: Performed By: #### P TT #### [facility] [address] [place] [address] Dr. Hugh Landis URINE T PROTEIN CREAT RATIOo n 11-15-2021 Protein (U) [Mass/Vol] 10.0 mg/dL Normal <=12.0 The [facility] Comment on above: Performed By: #### B MP #### [facility] [address] [place] [address] Dr. Hugh Landis UR PROT CREAT RAT 0.18 Normal The [facility] [place] [facility] Comment on above: Performed By: #### B MP #### [facility] [address] [place] [address] Dr. Hugh Landis URINE CREAT 57.11 mg/dL Normal 20.00-300.00 The [facility] Comment on above: Performed By: #### B MP #### [facility] [address] [place] [address] Dr. Hugh Landis FERRITINon 11-14-2021 Ferritin [Mass/Vol] 95.0 ng/mL Normal 26.0-388.0 [facility] Comment on above: Performed By: #### C MP, LIPID, TSH #### [facility] [address] [place] [address] Dr. Hugh Landis HEMOGRAM AND PLATELon 2021 Hematocrit (Bld) [Volume fraction] 35.7 % Critically low 42.0-54.0 [facility] Comment on above: Performed By: #### U TOMAS, TSH, CMP, LIPID, T7 #### [facility] [address] [place] [address] Dr. Hugh Landis Hemoglobin (Bld) [Mass/Vol] 11.5 g/dL Critically low 14.0-18.0 [facility] Comment on above: Performed By: #### U TOMAS, TSH, CMP, LIPID, T7 #### [facility] [address] [place] [address] Dr. Hugh Landis MCH (RBC) [Entitic mass] 30.3 pg Normal 25.9-34.0 [facility] Comment on above: Performed By: #### U TOMAS, TSH, CMP, LIPID, T7 #### [facility] [address] [place] [address] Dr. Hugh Landis MCHC (RBC) [Mass/Vol] 32.2 g/dL Normal 29.9-35.2 [facility] Comment on above: Performed By: #### U TOMAS, TSH, CMP, LIPID, T7 #### [facility] [address] [place] [address] Dr. Hugh Landis MCV (RBC) [Entitic vol] 93.9 fL Normal 80.0-94.0 [facility] Comment on above: Performed By: #### U TOMAS, TSH, CMP, LIPID, T7 #### [facility] [address] [place] [address] Dr. Hugh Landis PLT 254 103/ul Normal 150-450 The [facility] Comment on above: Performed By: #### U TOMAS, TSH, CMP, LIPID, T7 #### [facility] [address] [address] [address] Hugh Landis RBC 3.80 106/ul Critically low 4.70-6.10 The [facility] Comment on above: Performed By: #### U TOMAS, TSH, CMP, LIPID, T7 #### [facility] [address] [address] [address] Hugh Landis WBC 6.4 103/ul Normal 4.0-11.0 The [facility] Comment on above: Performed By: #### U TOMAS, TSH, CMP, LIPID, T7 #### [facility] [address] [address] [address] Hugh Landis IRON AND TIBCon 11-14-2021 % SATURATION 27.6 % Normal [facility] Comment on above: Performed By: #### C MP, LIPID, TSH #### [facility] [address] [place] [address] Dr. Hugh Landis Iron [Mass/Vol] 68.0 ug/dL Normal 65.0-175.0 The [facility] Comment on above: Performed By: #### C MP, LIPID, TSH #### [facility] [address] [address] [address] Hugh Landis TIBC DIRECT 246.0 ug/dL Critically low 250.0-450.0 [facility] [place] [facility] Comment on above: Performed By: #### C MP, LIPID, TSH #### [facility] [address] [place] [address] Dr. Hugh Landis MAGNESIUMon 11-14-2021 Magnesium [Mass/Vol] 1.8 mg/dL Normal 1.8-2.4 [facility] Comment on above: Performed By: #### U TOMAS, TSH, CMP, LIPID, T7 #### [facility] [address] [address] [address] Hugh Landis RENAL FUNCTION PANELon 11-14 Albumin [Mass/Vol] 3.4 g/dL Normal 3.4-5.0 [facility] Comment on above: Performed By: #### U TOMAS, TSH, CMP, LIPID, T7 #### [facility] [address] [place] [address] Dr. Hugh Landis Calcium [Mass/Vol] 9.1 mg/dL Normal 8.5-10.1 [facility] Comment on above: Performed By: #### U TOMAS, TSH, CMP, LIPID, T7 #### [facility] [address] [address] [address] Hugh Landis Chloride [Moles/Vol] 105 mmol/L Normal 98-107 [facility] Comment on above: Performed By: #### U TOMAS, TSH, CMP, LIPID, T7 #### [facility] [address] [address] [address] Hugh Landis CO2 [Moles/Vol] 29.2 mmol/L Normal 21.0-32.0 [facility] Comment on above: Performed By: #### U TOMAS, TSH, CMP, LIPID, T7 #### [facility] [address] [place] [address] Dr. Hugh Landis Creatinine [Mass/Vol] 1.62 mg/dL Critically high 0.70-1.30 [facility] Comment on above: Performed By: #### U TOMAS, TSH, CMP, LIPID, T7 #### [facility] [address] [address] [address] Hugh Landis EGFR-AF CHINESE 53 mL/min/1.73m2 Critically low >=60 [facility] Comment on above: Performed By: #### U TOMAS, TSH, CMP, LIPID, T7 #### [facility] [address] [address] [address] Hugh Landis EGFR-NON AF CHINESE 44 mL/min/1.73m2 Critically low >=60 [facility] Comment on above: Performed By: #### U TOMAS, TSH, CMP, LIPID, T7 #### [facility] [address] [address] [address] Hugh Landis Glucose [Mass/Vol] 136 mg/dL Critically high 74-106 [facility] Comment on above: Performed By: #### U TOMAS, TSH, CMP, LIPID, T7 #### [facility] [address] [address] [address] Hugh Landis Phosphate [Mass/Vol] 2.8 mg/dL Normal 2.6-4.7 [facility] Comment on above: Performed By: #### U TOMAS, TSH, CMP, LIPID, T7 #### [facility] [address] [place] [address] Dr. Hugh Landis Potassium [Moles/Vol] 3.1 mmol/L Critically low 3.5-5.1 [facility] Comment on above: Performed By: #### U TOMAS, TSH, CMP, LIPID, T7 #### [facility] [address] [place] [address] Dr. Hugh Landis Sodium [Moles/Vol] 141 mmol/L Normal 136-145 [facility] Comment on above: Performed By: #### U TOMAS, TSH, CMP, LIPID, T7 #### [facility] [address] [place] [address] Dr. Hugh Landis Urea nitrogen [Mass/Vol] 19.0 mg/dL Critically high 7.0-18.0 [facility] Comment on above: Performed By: #### U TOMAS, TSH, CMP, LIPID, T7 #### [facility] [address] [place] [address] Dr. Hugh Landis URIC ACID SERUMon 11-14-2021 Urate [Mass/Vol] 8.7 mg/dL Critically high 3.5-7.2 [facility] Comment on above: Performed By: #### U TOMAS, TSH, CMP, LIPID, T7 #### [facility] [address] [place] [address] Dr. Hugh Landis VIT B12 AND FOLATEon 022 Cobalamin (Vitamin B12) [Mass/Vol] 373.0 pg/mL Normal 193.0-986.0 [facility] Comment on above: Performed By: #### U TOMAS, TSH, CMP, LIPID, T7 #### [facility] [address] [place] [address] Dr. Hugh Landis FOLATE 14.00 ng/mL Normal 8.60-58.90 [facility] Comment on above: Performed By: #### U TOMAS, TSH, CMP, LIPID, T7 #### [facility] [address] [place], [place] [address] Dr. Hugh Landis VITAMIN D 25 OHon 11-14-2021 VIT D 25-OH 33.8 ng/mL Normal [facility] Comment on above: Performed By: #### U TOMAS, TSH, CMP, LIPID, T7 #### [facility] [address] [place], [place] [address] Dr. Hugh Landis VIT D RANGES SEE BELOW Normal [facility] Comment on above: Result Comment: <20 ng/mL Vit D deficient 20 - <30 ng/mL Vit D insufficient 30 - 100 ng/mL Vit D sufficient >100 ng/mL Potential Toxicity Performed By: #### U TOMAS, TSH, CMP, LIPID, T7 #### [facility] [id number] Hugh Landis US KIDNEYS BLADDERon 022 [...] AUSTIN LARIOS Date: 2021-11-01 16:44 Normal [facility] XR CHEST 2 Von 11-01-2021 [...] OBIE TSE Date: 2021-11-01 06:51 Normal The [facility] NM LUNG VENT_PERFon 11-01-19 22 NM LUNG VENT_PERF EXAM: NM LUNG VENT_PERF HISTORY: Dyspnea COMPARISON: Chest x-ray 10/31/2021 TECHNIQUE: 6.1 mCi technetium MAA. 24.9 mCi technetium DTPA. FINDINGS: Perfusion images demonstrate no segmental perfusion defects to suggest acute pulmonary embolism Ventilation images are normal without ventilation defects. IMPRESSION: Normal ventilation/perfusion scan Electronically authenticated by: JASPER SCHRADER Date: 2021-10-31 12:35 Normal [facility] PROF CHEM 8 (BAS METB)on Anion gap [Moles/Vol] 17.5 mmol/L Normal [facility] Comment on above: Performed By: #### B MP #### [facility] [address] [place] [address] Dr. Hugh Landis Calcium [Mass/Vol] 9.4 mg/dL Normal 8.5-10.1 [facility] Comment on above: Performed By: #### B MP #### [facility] [address] [place] [address] Dr. Hugh Landis Chloride [Moles/Vol] 100 mmol/L Normal 98-107 [facility] Comment on above: Performed By: #### B MP #### [facility] [address] [address] [address] Hugh Landis CO2 [Moles/Vol] 22.8 mmol/L Normal 21.0-32.0 [facility] Comment on above: Performed By: #### B MP #### [facility] [address] [address] [address] Hugh Landis Creatinine [Mass/Vol] 2.69 mg/dL Critically high 0.70-1.30 [facility] Comment on above: Performed By: #### B MP #### [facility] [address] [address] [address] Hugh Landis EGFR-AF CHINESE 30 mL/min/1.73m2 Critically low >=60 [facility] Comment on above: Performed By: #### B MP #### [facility] [address] [address] [address] Hugh Landis EGFR-NON AF CHINESE 24 mL/min/1.73m2 Critically low >=60 [facility] Comment on above: Performed By: #### B MP #### [facility] [address] [address] [address] Hugh Landis Glucose [Mass/Vol] 117 mg/dL Critically high 74-106 [facility] Comment on above: Performed By: #### B MP #### [facility] [address] [address] [address] Hugh Landis Potassium [Moles/Vol] 4.3 mmol/L Normal 3.5-5.1 [facility] Comment on above: Performed By: #### B MP #### [facility] [address] [place] [address] Dr. Hugh Landis Sodium [Moles/Vol] 136 mmol/L Normal 136-145 [facility] Comment on above: Performed By: #### B MP #### [facility] [address] [place] [address] Dr. Hugh Landis Urea nitrogen [Mass/Vol] 41.0 mg/dL Critically high 7.0-18.0 [facility] Comment on above: Performed By: #### B MP #### [facility] [address] [address] [address] Hugh Landis Urea nitrogen/Creatinine [Mass ratio] 15.2 mg/mg Normal [facility] Comment on above: Performed By: #### B MP #### [facility] [address] [place] [address] Dr. Hugh Landis CBC AUTO DIFFon 10-16-2021 BASO # 0.0 103/ul Normal 0.0-0.1 [facility] Comment on above: Performed By: #### P T #### [facility] [address] [place] [address] Dr. Hugh Landis Basophils/100 WBC (Bld) 0.6 % Normal 0.2-2.0 [facility] Comment on above: Performed By: #### P T #### [facility] [address] [place] [address] Dr. Hugh Landis EO # 0.2 103/ul Normal 0.0-0.7 [facility] Comment on above: Performed By: #### P T #### [facility] [address] [place] [address] Dr. Hugh Landis Eosinophils/100 WBC (Bld) 2.3 % Normal 0.9-7.0 [facility] Comment on above: Performed By: #### P T #### [facility] [address] [place] [address] Dr. Hugh Landis Erythrocyte distribution width (RBC) [Ratio] 12.7 % Normal 11.0-15.0 [facility] Comment on above: Performed By: #### P T #### [facility] [address] [place] [address] Dr. Hugh Landis Hematocrit (Bld) [Volume fraction] 36.2 % Critically low 42.0-54.0 [facility] Comment on above: Performed By: #### P T #### [facility] [address] [place] [address] Dr. Hugh Landis Hemoglobin (Bld) [Mass/Vol] 11.5 g/dL Critically low 14.0-18.0 [facility] Comment on above: Performed By: #### P T #### [facility] [address] [place] [address] Dr. Hugh Landis IG # 0.02 10e3/ul Normal 0.00-0.03 [facility] Comment on above: Performed By: #### P T #### [facility] [address] [place] [address] Dr. Hugh Landis IG % 0.3 % Normal 0.0-0.5 [facility] Comment on above: Performed By: #### P T #### [facility] [address] [place] [address] Dr. Hugh Landis LYMPH # 1.4 103/ul Normal 1.2-3.8 [facility] Comment on above: Performed By: #### P T #### [facility] [address] [place] [address] Dr. Hugh Landis Lymphocytes/100 WBC (Bld) 21.3 % Normal 20.5-60.0 [facility] Comment on above: Performed By: #### P T #### [facility] [address] [place] [address] Dr. Hugh Landis MANUAL DIFF REQ NO Normal [facility] Comment on above: Performed By: #### P T #### [facility] [address] [place] [address] Dr. Hugh Landis MCH (RBC) [Entitic mass] 29.6 pg Normal 25.9-34.0 [facility] Comment on above: Performed By: #### P T #### [facility] [address] [place] [address] Dr. Hugh Landis MCHC (RBC) [Mass/Vol] 31.8 g/dL Normal 29.9-35.2 [facility] Comment on above: Performed By: #### P T #### [facility] [address] [place] [address] Dr. Huhg Landis MCV (RBC) [Entitic vol] 93.1 fL Normal 80.0-94.0 [facility] Comment on above: Performed By: #### P T #### [facility] [address] [place] [address] Dr. Hugh Landis MONO # 0.8 103/ul Normal 0.3-0.8 [facility] Comment on above: Performed By: #### P T #### [facility] [address] [place] [address] Dr. Hugh Landis Monocytes/100 WBC (Bld) 11.5 % Normal 1.7-12.0 [facility] Comment on above: Performed By: #### P T #### [facility] [address] [place] [address] Dr. Hugh Landis NEUT # 4.2 103/ul Normal 1.4-6.5 [facility] Comment on above: Performed By: #### P T #### [facility] [address] [place] [address] Dr. Hugh Landis Neutrophils/100 WBC (Bld) 64.0 % Normal 43.0-75.0 [facility] Comment on above: Performed By: #### P T #### [facility] [address] [place] [address] Dr. Hugh Landis Platelet mean volume (Bld) [Entitic vol] 9.2 fL Critically low 9.5-13.5 [facility] Comment on above: Performed By: #### P T #### [facility] [address] [place] [address] Dr. Hugh Landis PLT 241 103/ul Normal 150-450 [facility] Comment on above: Performed By: #### P T #### [facility] [address] [place] [address] Dr. Hugh Landis RBC 3.89 106/ul Critically low 4.70-6.10 [facility] Comment on above: Performed By: #### P T #### [facility] [address] [place] [address] Dr. Hugh Landis WBC 6.5 103/ul Normal 4.0-11.0 [facility] Comment on above: Performed By: #### P T #### [facility] [address] [place] [address] Dr. Hugh Landis [facility] SARS-CoV-2 (COVID-19) RNA MUKUL+probe Ql (Unsp spec) Not detected Normal NOT DETECTED [facility] Comment on above: Result Comment: This test is not yet approved or cleared by the [place] FDA. When there are no FDA-approved or cleared tests available, and other criteria are met, FDA can make tests available under an emergency access mechanism called an Emergency Use Authorization (EUA). The EUA for this test is supported by the [place] of Health and Human Service's (HHS's) declaration [...] U TOMAS, TSH, CMP, LIPID, T7 #### [facility] [address] [place] [address] Dr. Hugh Landis PROF CHEM 8 (BAS METB)on Anion gap [Moles/Vol] 16.3 mmol/L Normal [facility] Comment on above: Performed By: #### C MP, LIPID, TSH #### [facility] [address] [place] [address] Dr. Hugh Landis Calcium [Mass/Vol] 9.6 mg/dL Normal 8.5-10.1 [facility] Comment on above: Performed By: #### C MP, LIPID, TSH #### [facility] [address] [place] [address] Dr. Hugh Landis Chloride [Moles/Vol] 103 mmol/L Normal 98-107 [facility] Comment on above: Performed By: #### C MP, LIPID, TSH #### [facility] [address] [place] [address] Dr. Hugh Landis CO2 [Moles/Vol] 21.9 mmol/L Normal 21.0-32.0 [facility] Comment on above: Performed By: #### C MP, LIPID, TSH #### [facility] [address] [place] [address] Dr. Hugh Landis Creatinine [Mass/Vol] 3.58 mg/dL Critically high 0.70-1.30 [facility] Comment on above: Performed By: #### C MP, LIPID, TSH #### [facility] [address] [place] [address] Dr. Hugh Landis EGFR-AF CHINESE 21 mL/min/1.73m2 Critically low >=60 [facility] Comment on above: Performed By: #### C MP, LIPID, TSH #### [facility] [address] [place] [address] Dr. Hugh Landis EGFR-NON AF CHINESE 18 mL/min/1.73m2 Critically low >=60 [facility] Comment on above: Performed By: #### C MP, LIPID, TSH #### [facility] [address] [place] [address] Dr. Hugh Landis Glucose [Mass/Vol] 115 mg/dL Critically high 74-106 [facility] Comment on above: Performed By: #### C MP, LIPID, TSH #### [facility] [address] [place] [address] Dr. Hugh Landis Potassium [Moles/Vol] 5.2 mmol/L Critically high 3.5-5.1 [facility] Comment on above: Performed By: #### C MP, LIPID, TSH #### [facility] [address] [place] [address] Dr. Hugh Landis Sodium [Moles/Vol] 136 mmol/L Normal 136-145 [facility] Comment on above: Performed By: #### C MP, LIPID, TSH #### [facility] [address] [place] [address] Dr. Hugh Landis Urea nitrogen [Mass/Vol] 54.0 mg/dL Critically high 7.0-18.0 [facility] Comment on above: Performed By: #### C MP, LIPID, TSH #### [facility] [address] [place] [address] Dr. Hugh Landis Urea nitrogen/Creatinine [Mass ratio] 15.1 mg/mg Normal [facility] Comment on above: Performed By: #### C MP, LIPID, TSH #### [facility] [address] [place] [address] Dr. Hugh Landis MRSA COLONIZATION SCREENING CULTUREon 10-09-2021 MRSA Screening Culture Negative Normal [facility] Comment on above: Performed By: #### C MP, LIPID, TSH #### [facility] [address] [place] [address] Dr. Hugh Landis CBC AUTO DIFFon 10-06-2021 BASO # 0.0 103/ul Normal 0.0-0.1 [facility] Comment on above: Performed By: #### U TOMAS, TSH, CMP, LIPID, T7 #### [facility] [address] [place] [address] Dr. uHgh Landis Basophils/100 WBC (Bld) 0.3 % Normal 0.2-2.0 [facility] Comment on above: Performed By: #### U TOMAS, TSH, CMP, LIPID, T7 #### [facility] [address] [place] [address] Dr. Hugh Landis EO # 0.1 103/ul Normal 0.0-0.7 [facility] Comment on above: Performed By: #### U TOMAS, TSH, CMP, LIPID, T7 #### [facility] [address] [place] [address] Dr. Hugh Landis Eosinophils/100 WBC (Bld) 2.3 % Normal 0.9-7.0 [facility] Comment on above: Performed By: #### U TOMAS, TSH, CMP, LIPID, T7 #### [facility] [address] [place] [address] Dr. Hugh Landis Erythrocyte distribution width (RBC) [Ratio] 13.3 % Normal 11.0-15.0 [facility] Comment on above: Performed By: #### U TOMAS, TSH, CMP, LIPID, T7 #### [facility] [address] [place] [address] Dr. Hugh Landis Hematocrit (Bld) [Volume fraction] 36.5 % Critically low 42.0-54.0 [facility] Comment on above: Performed By: #### U TOMAS, TSH, CMP, LIPID, T7 #### [facility] [address] [place] [address] Dr. Hugh Landis Hemoglobin (Bld) [Mass/Vol] 11.7 g/dL Critically low 14.0-18.0 [facility] Comment on above: Performed By: #### U TOMAS, TSH, CMP, LIPID, T7 #### [facility] [address] [address] [address] Hugh Landis IG # 0.02 10e3/ul Normal 0.00-0.03 [facility] Comment on above: Performed By: #### U TOMAS, TSH, CMP, LIPID, T7 #### [facility] [address] [address] [address] Hugh Landis IG % 0.3 % Normal 0.0-0.5 [facility] Comment on above: Performed By: #### U TOMAS, TSH, CMP, LIPID, T7 #### [facility] [address] [place] [address] Dr. Hugh Landis LYMPH # 1.3 103/ul Normal 1.2-3.8 [facility] Comment on above: Performed By: #### U TOMAS, TSH, CMP, LIPID, T7 #### [facility] [address] [place] [address] Dr. Hugh Landis Lymphocytes/100 WBC (Bld) 21.9 % Normal 20.5-60.0 [facility] Comment on above: Performed By: #### U TOMAS, TSH, CMP, LIPID, T7 #### [facility] [address] [place] [address] Dr. Hugh Landis MANUAL DIFF REQ NO Normal [facility] Comment on above: Performed By: #### U TOMAS, TSH, CMP, LIPID, T7 #### [facility] [address] [place] [address] Dr. Hugh Landis MCH (RBC) [Entitic mass] 29.7 pg Normal 25.9-34.0 [facility] Comment on above: Performed By: #### U TOMAS, TSH, CMP, LIPID, T7 #### [facility] [address] [place] [address] Dr. Hugh Landis MCHC (RBC) [Mass/Vol] 32.1 g/dL Normal 29.9-35.2 [facility] Comment on above: Performed By: #### U TOMAS, TSH, CMP, LIPID, T7 #### [facility] [address] [place] [address] Dr. Hugh Landis MCV (RBC) [Entitic vol] 92.6 fL Normal 80.0-94.0 [facility] Comment on above: Performed By: #### U TOMAS, TSH, CMP, LIPID, T7 #### [facility] [address] [address] [address] Hugh Landis MONO # 0.7 103/ul Normal 0.3-0.8 [facility] Comment on above: Performed By: #### U TOMAS, TSH, CMP, LIPID, T7 #### [facility] [address] [address] [address] Hugh Landis Monocytes/100 WBC (Bld) 11.3 % Normal 1.7-12.0 [facility] Comment on above: Performed By: #### U TOMAS, TSH, CMP, LIPID, T7 #### [facility] [address] [address] [address] Hugh Landis NEUT # 3.7 103/ul Normal 1.4-6.5 [facility] Comment on above: Performed By: #### U TOMAS, TSH, CMP, LIPID, T7 #### [facility] [address] [place] [address] Dr. Hugh Landis Neutrophils/100 WBC (Bld) 63.9 % Normal 43.0-75.0 [facility] Comment on above: Performed By: #### U TOMAS, TSH, CMP, LIPID, T7 #### [facility] [address] [address] [address] Hugh Landis Platelet mean volume (Bld) [Entitic vol] 8.9 fL Critically low 9.5-13.5 [facility] Comment on above: Performed By: #### U TOMAS, TSH, CMP, LIPID, T7 #### [facility] [address] [address] [address] Hugh Landis PLT 257 103/ul Normal 150-450 [facility] Comment on above: Performed By: #### U TOMAS, TSH, CMP, LIPID, T7 #### [facility] [address] [address] [address] Hugh Landis RBC 3.94 106/ul Critically low 4.70-6.10 [facility] Comment on above: Performed By: #### U TOMAS, TSH, CMP, LIPID, T7 #### [facility] [address] [address] [address] Hugh Landis WBC 5.8 103/ul Normal 4.0-11.0 [facility] Comment on above: Performed By: #### U TOMAS, TSH, CMP, LIPID, T7 #### [facility] [address] [address] [address] Hugh Landis GLYCOHEMOGLOBIN A1Con 2021 ADA RECOMMENDATION SEE BELOW Normal [facility] Comment on above: Result Comment: ADA RECOMMENDED LIMIT 4.0 - 6.0 ADA THERAPEUTIC TARGET < 7.0 ACTION SUGGESTED > 7.0 Performed By: #### U TOMAS, TSH, CMP, LIPID, T7 #### [facility] [address] [address] [address] Hugh Landis Glucose [Mass/Vol] 134 mg/dL Normal [facility] Comment on above: Performed By: #### U TOMAS, TSH, CMP, LIPID, T7 #### [facility] [address] [address] [address] Hugh Landis HbA1c (Bld) [Mass fraction] 6.3 % Critically high 4.5-6.2 [facility] Comment on above: Performed By: #### U TOMAS, TSH, CMP, LIPID, T7 #### [facility] [address] [address] [address] Hugh Landis PROF CHEM 8 (BAS METB)on Anion gap [Moles/Vol] 17.6 mmol/L Normal [facility] Comment on above: Performed By: #### C MP, LIPID, TSH #### [facility] [address] [address] [address] Hugh Landis Calcium [Mass/Vol] 9.5 mg/dL Normal 8.5-10.1 [facility] Comment on above: Performed By: #### C MP, LIPID, TSH #### [facility] [address] [address] [address] Hugh Landis Chloride [Moles/Vol] 102 mmol/L Normal 98-107 [facility] Comment on above: Performed By: #### C MP, LIPID, TSH #### [facility] [address] [place] [address] Dr. Hugh Landis CO2 [Moles/Vol] 22.2 mmol/L Normal 21.0-32.0 [facility] Comment on above: Performed By: #### C MP, LIPID, TSH #### [facility] [address] [place] [address] Dr. Hugh Landis Creatinine [Mass/Vol] 2.94 mg/dL Critically high 0.70-1.30 [facility] Comment on above: Performed By: #### C MP, LIPID, TSH #### [facility] [address] [place] [address] Dr. Hugh Landis EGFR-AF CHINESE 27 mL/min/1.73m2 Critically low >=60 [facility] Comment on above: Performed By: #### C MP, LIPID, TSH #### [facility] [address] [place] [address] Dr. Hugh Landis EGFR-NON AF CHINESE 22 mL/min/1.73m2 Critically low >=60 [facility] Comment on above: Performed By: #### C MP, LIPID, TSH #### [facility] [address] [place] [address] Dr. Hugh Landis Glucose [Mass/Vol] 234 mg/dL Critically high 74-106 [facility] Comment on above: Performed By: #### C MP, LIPID, TSH #### [facility] [address] [place] [address] Dr. Hugh Landis Potassium [Moles/Vol] 5.8 mmol/L Critically high 3.5-5.1 [facility] Comment on above: Performed By: #### C MP, LIPID, TSH #### [facility] [address] [place] [address] Dr. Hugh Landis Sodium [Moles/Vol] 136 mmol/L Normal 136-145 [facility] Comment on above: Performed By: #### C MP, LIPID, TSH #### [facility] [address] [address] [address] Hugh Landis Urea nitrogen [Mass/Vol] 46.0 mg/dL Critically high 7.0-18.0 [facility] Comment on above: Performed By: #### C MP, LIPID, TSH #### [facility] [address] [address] [address] Hugh Landis Urea nitrogen/Creatinine [Mass ratio] 15.6 mg/mg Normal [facility] Comment on above: Performed By: #### C MP, LIPID, TSH #### [facility] [address] [address] [address] Hugh Landis PROTIMEon 10-06-2021 INR Coag (PPP) [Relative time] 1.22 {INR} Normal [facility] Comment on above: Performed By: #### U TOMAS, TSH, CMP, LIPID, T7 #### [facility] [address] [place] [address] Dr. Hugh Landis INR GUIDELINES SEE BELOW Normal [facility] Comment on above: Result Comment: VIC RED INR: 2.0 - 3.0 CONDITIONS NOT LISTED BELOW 2.5 - 3.5 FOR PROSTHETIC HEART VALVE REPLACEMENT 2.5 - 3.5 RECURRENT THROMBOSIS Performed By: #### U TOMAS, TSH, CMP, LIPID, T7 #### [facility] [address] [place] [address] Dr. Hugh Landis PT Coag (PPP) [Time] 13.0 s Critically high 9.0-11.6 [facility] Comment on above: Performed By: #### U TOMAS, TSH, CMP, LIPID, T7 #### [facility] [address] [place] [address] Dr. Hugh Landis PTTon 10-06-2021 aPTT Coag (Bld) [Time] 30.6 s Normal 22.3-36.2 [facility] Comment on above: Performed By: #### U TOMAS, TSH, CMP, LIPID, T7 #### [facility] [address] [place] [address] Dr. Hugh Landis UA RANDOMon 10-06-2021 Bilirubin Ql (U) Negative Normal NEGATIVE [facility] Comment on above: Performed By: #### C MP, LIPID, TSH #### [facility] [address] [address] [address] Hugh Landis Clarity (U) CLEAR Normal CLEAR [facility] Comment on above: Performed By: #### C MP, LIPID, TSH #### [facility] [address] [address] [address] Hugh Landis Color (U) LT. YELLOW Normal YELLOW [facility] Comment on above: Performed By: #### C MP, LIPID, TSH #### [facility] [address] [address] [address] Hugh Landis Glucose Ql (U) Negative Normal NEGATIVE [facility] Comment on above: Performed By: #### C MP, LIPID, TSH #### [facility] [address] [place] [address] Dr. Hugh Landis Hemoglobin Ql (U) Negative Normal NEGATIVE [facility] Comment on above: Performed By: #### C MP, LIPID, TSH #### [facility] [address] [place] [address] Dr. Hugh Landis Ketones Ql (U) Negative Normal NEGATIVE [facility] Comment on above: Performed By: #### C MP, LIPID, TSH #### [facility] [address] [place] [address] Dr. Hugh Landis LEUKOCYTES Negative Normal NEGATIVE [facility] Comment on above: Performed By: #### C MP, LIPID, TSH #### [facility] [address] [address] [address] Hugh Landis Nitrite Ql (U) Negative Normal NEGATIVE [facility] Comment on above: Performed By: #### C MP, LIPID, TSH #### [facility] [address] [address] [address] Hugh Landis pH (U) 5.5 [pH] Normal 5-9 [facility] Comment on above: Performed By: #### C MP, LIPID, TSH #### [facility] [address] [address] [address] Hugh Landis SPEC GRAVITY 1.020 Normal 1.005-<=1.02 5 [facility] Comment on above: Performed By: #### C MP, LIPID, TSH #### [facility] [address] [place] [address] Dr. Hugh Landis UA PROTEIN Negative Normal NEGATIVE/ TRACE [facility] Comment on above: Performed By: #### C MP, LIPID, TSH #### [facility] [address] [place] [address] Dr. Hugh Landis Urobilinogen Qn (U) 0.2 {Dahiana'U}/dL Normal 0.2 - 1. 0 [facility] Comment on above: Performed By: #### C MP, LIPID, TSH #### [facility] [address] [place] [address] Dr. Hugh Landis CBC AUTO DIFFon 09-25-2021 BASO # 0.0 103/ul Normal 0.0-0.1 [facility] Comment on above: Performed By: #### U TOMAS, TSH, CMP, LIPID, T7 #### [facility] [address] [place] [address] Dr. Hugh Landis Basophils/100 WBC (Bld) 0.4 % Normal 0.2-2.0 [facility] Comment on above: Performed By: #### U TOMAS, TSH, CMP, LIPID, T7 #### [facility] [address] [place] [address] Dr. Hugh Landis EO # 0.1 103/ul Normal 0.0-0.7 [facility] Comment on above: Performed By: #### U TOMAS, TSH, CMP, LIPID, T7 #### [facility] [address] [place] [address] Dr. Hugh Landis Eosinophils/100 WBC (Bld) 1.7 % Normal 0.9-7.0 [facility] Comment on above: Performed By: #### U TOMAS, TSH, CMP, LIPID, T7 #### [facility] [address] [place] [address] Dr. Hugh Landis Erythrocyte distribution width (RBC) [Ratio] 13.5 % Normal 11.0-15.0 [facility] Comment on above: Performed By: #### U TOMAS, TSH, CMP, LIPID, T7 #### [facility] [address] [place] [address] Dr. Hugh Landis Hematocrit (Bld) [Volume fraction] 36.0 % Critically low 42.0-54.0 [facility] Comment on above: Performed By: #### U TOMAS, TSH, CMP, LIPID, T7 #### [facility] [address] [place] [address] Dr. Hugh Landis Hemoglobin (Bld) [Mass/Vol] 11.7 g/dL Critically low 14.0-18.0 [facility] Comment on above: Performed By: #### U TOMAS, TSH, CMP, LIPID, T7 #### [facility] [address] [place] [address] Dr. Hugh Landis IG # 0.02 10e3/ul Normal 0.00-0.03 [facility] Comment on above: Performed By: #### U TOMAS, TSH, CMP, LIPID, T7 #### [facility] [address] [place] [address] Dr. Hugh Landis IG % 0.3 % Normal 0.0-0.5 [facility] Comment on above: Performed By: #### U TOMAS, TSH, CMP, LIPID, T7 #### [facility] [address] [place] [address] Dr. Hugh Landis LYMPH # 1.3 103/ul Normal 1.2-3.8 [facility] Comment on above: Performed By: #### U TOMAS, TSH, CMP, LIPID, T7 #### [facility] [address] [place] [address] Dr. Hugh Landis Lymphocytes/100 WBC (Bld) 18.3 % Critically low 20.5-60.0 [facility] Comment on above: Performed By: #### U TOMAS, TSH, CMP, LIPID, T7 #### [facility] [address] [place] [address] Dr. Hugh Landis MANUAL DIFF REQ NO Normal [facility] Comment on above: Performed By: #### U TOMAS, TSH, CMP, LIPID, T7 #### [facility] [address] [place] [address] Dr. Hugh Landis MCH (RBC) [Entitic mass] 29.4 pg Normal 25.9-34.0 [facility] Comment on above: Performed By: #### U TOMAS, TSH, CMP, LIPID, T7 #### [facility] [address] [place] [address] Dr. Hugh Landis MCHC (RBC) [Mass/Vol] 32.5 g/dL Normal 29.9-35.2 [facility] Comment on above: Performed By: #### U TOMAS, TSH, CMP, LIPID, T7 #### [facility] [address] [place] [address] Dr. Hugh Landis MCV (RBC) [Entitic vol] 90.5 fL Normal 80.0-94.0 [facility] Comment on above: Performed By: #### U TOMAS, TSH, CMP, LIPID, T7 #### [facility] [address] [place] [address] Dr. Hugh Landis MONO # 0.6 103/ul Normal 0.3-0.8 [facility] Comment on above: Performed By: #### U TOMAS, TSH, CMP, LIPID, T7 #### [facility] [address] [place] [address] Dr. Hugh Landis Monocytes/100 WBC (Bld) 8.6 % Normal 1.7-12.0 [facility] Comment on above: Performed By: #### U TOMAS, TSH, CMP, LIPID, T7 #### [facility] [address] [place] [address] Dr. Hugh Landis NEUT # 4.9 103/ul Normal 1.4-6.5 [facility] Comment on above: Performed By: #### U TOMAS, TSH, CMP, LIPID, T7 #### [facility] [address] [place] [address] Dr. Hugh Landis Neutrophils/100 WBC (Bld) 70.7 % Normal 43.0-75.0 [facility] Comment on above: Performed By: #### U TOMAS, TSH, CMP, LIPID, T7 #### [facility] [address] [address] [address] Hugh Landis Platelet mean volume (Bld) [Entitic vol] 8.8 fL Critically low 9.5-13.5 [facility] Comment on above: Performed By: #### U TOMAS, TSH, CMP, LIPID, T7 #### [facility] [address] [place] [address] Dr. Hugh Landis PLT 270 103/ul Normal 150-450 [facility] Comment on above: Performed By: #### U TOMAS, TSH, CMP, LIPID, T7 #### [facility] [address] [place] [address] Dr. Hugh Landis RBC 3.98 106/ul Critically low 4.70-6.10 [facility] Comment on above: Performed By: #### U TOMAS, TSH, CMP, LIPID, T7 #### [facility] [address] [place] [address] Dr. Hugh Landis WBC 6.9 103/ul Normal 4.0-11.0 [facility] Comment on above: Performed By: #### U TOMAS, TSH, CMP, LIPID, T7 #### [facility] [address] [place] [address] Dr. Hugh Landis CRPon 09-25-2021 CRP [Mass/Vol] mg/L Normal <=1.0 [facility] Comment on above: Performed By: #### P T #### [facility] [address] [place] [address] Dr. Hugh Landis CULTURE BLOODon 09-25-2021 Microscopic examination of blood, culture Culture Observations: NO GROWTH AT 5 DAYS. Normal [facility] Comment on above: Performed By: #### B MP #### [facility] [address] [place] [address] Dr. Hugh Landis Microscopic examination of blood, culture Culture Observations: NO GROWTH AT 5 DAYS. Normal [facility] Comment on above: Performed By: #### B MP #### [facility] [address] [place] [address] Dr. Hugh Landis IRONon 09-25-2021 Iron [Mass/Vol] 62.0 ug/dL Critically low 65.0-175.0 [facility] Comment on above: Performed By: #### B MP #### [facility] [address] [address] [address] Hugh Landis SED RATE SALYERSVILLEERGRENon 2021 SED RATE 102 mm/hr Critically high <=20 [facility] Comment on above: Performed By: #### C MP, LIPID, TSH #### [facility] [address] [place] [address] Dr. Hugh Landis NM BONE IMAGE 3 [...] OBIE TSE Date: 2021-09-05 16:15 Normal [facility] CREATININEon 08-25-2021 Creatinine [Mass/Vol] 1.92 mg/dL Critically high 0.70-1.30 [facility] Comment on above: Performed By: #### C MP, LIPID, TSH #### [facility] [address] [place] [address] Dr. Hugh Landis EGFR-AF CHINESE 44 mL/min/1.73m2 Critically low >=60 [facility] Comment on above: Performed By: #### C MP, LIPID, TSH #### [facility] [address] [place] [address] Dr. Hugh Landis EGFR-NON AF CHINESE 36 mL/min/1.73m2 Critically low >=60 [facility] Comment on above: Performed By: #### C MP, LIPID, TSH #### [facility] [address] [address] [address] Hugh Landis CTA CHEST WO W [...] OBIE TSE Date: 2021-08-25 10:16 Normal [facility] CBC AUTO DIFFon 08-18-2021 BASO # 0.0 103/ul Normal 0.0-0.1 [facility] Comment on above: Performed By: #### C MP, LIPID, TSH #### [facility] [address] [address] [address] Hugh Landis Basophils/100 WBC (Bld) 0.4 % Normal 0.2-2.0 [facility] Comment on above: Performed By: #### C MP, LIPID, TSH #### [facility] [address] [address] [address] Hugh Landis EO # 0.1 103/ul Normal 0.0-0.7 [facility] Comment on above: Performed By: #### C MP, LIPID, TSH #### [facility] [address] [address] [address] Hugh Landis Eosinophils/100 WBC (Bld) 1.8 % Normal 0.9-7.0 [facility] Comment on above: Performed By: #### C MP, LIPID, TSH #### [facility] [address] [place] [address] Dr. Hugh Landis Erythrocyte distribution width (RBC) [Ratio] 13.3 % Normal 11.0-15.0 [facility] Comment on above: Performed By: #### C MP, LIPID, TSH #### [facility] [address] [place] [address] Dr. Hugh Landis Hematocrit (Bld) [Volume fraction] 34.7 % Critically low 42.0-54.0 [facility] Comment on above: Performed By: #### C MP, LIPID, TSH #### [facility] [address] [place] [address] Dr. Hugh Landis Hemoglobin (Bld) [Mass/Vol] 11.3 g/dL Critically low 14.0-18.0 [facility] Comment on above: Performed By: #### C MP, LIPID, TSH #### [facility] [address] [place] [address] Dr. Hugh Landis IG # 0.05 10e3/ul Critically high 0.00-0.03 [facility] Comment on above: Performed By: #### C MP, LIPID, TSH #### [facility] [address] [place] [address] Dr. Hugh Landis IG % 0.7 % Critically high 0.0-0.5 [facility] Comment on above: Performed By: #### C MP, LIPID, TSH #### [facility] [facility] [address] [place] [address] Dr. Hugh Landis LYMPH # 1.1 103/ul Critically low 1.2-3.8 [facility] Comment on above: Performed By: #### C MP, LIPID, TSH #### [facility] [address] [place] [address] Dr. Hugh Landis Lymphocytes/100 WBC (Bld) 16.0 % Critically low 20.5-60.0 [facility] Comment on above: Performed By: #### C MP, LIPID, TSH #### [facility] [address] [place] [address] Dr. Hugh Landis MANUAL DIFF REQ NO Normal [facility] Comment on above: Performed By: #### C MP, LIPID, TSH #### [facility] [address] [place] [address] Dr. Hugh Landis MCH (RBC) [Entitic mass] 29.7 pg Normal 25.9-34.0 [facility] Comment on above: Performed By: #### C MP, LIPID, TSH #### [facility] [address] [place] [address] Dr. Hugh Landis MCHC (RBC) [Mass/Vol] 32.6 g/dL Normal 29.9-35.2 [facility] Comment on above: Performed By: #### C MP, LIPID, TSH #### [facility] [address] [place] [address] Dr. Hugh Landis MCV (RBC) [Entitic vol] 91.3 fL Normal 80.0-94.0 [facility] Comment on above: Performed By: #### C MP, LIPID, TSH #### [facility] [address] [place] [address] Dr. Hugh Landis MONO # 0.7 103/ul Normal 0.3-0.8 [facility] Comment on above: Performed By: #### C MP, LIPID, TSH #### [facility] [address] [place] [address] Dr. Hugh Landis Monocytes/100 WBC (Bld) 9.7 % Normal 1.7-12.0 [facility] Comment on above: Performed By: #### C MP, LIPID, TSH #### [facility] [address] [place] [address] Dr. Hugh Landis NEUT # 4.9 103/ul Normal 1.4-6.5 [facility] Comment on above: Performed By: #### C MP, LIPID, TSH #### [facility] [address] [place] [address] Dr. Hugh Landis Neutrophils/100 WBC (Bld) 71.4 % Normal 43.0-75.0 [facility] Comment on above: Performed By: #### C MP, LIPID, TSH #### [facility] [address] [address] [address] Hugh Landis Platelet mean volume (Bld) [Entitic vol] 9.0 fL Critically low 9.5-13.5 [facility] Comment on above: Performed By: #### C MP, LIPID, TSH #### [facility] [address] [address] [address] Hugh Landis PLT 264 103/ul Normal 150-450 [facility] Comment on above: Performed By: #### C MP, LIPID, TSH #### [facility] [address] [address] [address] Hugh Landis RBC 3.80 106/ul Critically low 4.70-6.10 [facility] Comment on above: Performed By: #### C MP, LIPID, TSH #### [facility] [address] [place] [address] Dr. Hugh Landis WBC 6.8 103/ul Normal 4.0-11.0 [facility] Comment on above: Performed By: #### C MP, LIPID, TSH #### [facility] [address] [place] [address] Dr. Hugh Landis PROF 14(COMP METB)on 022 Albumin [Mass/Vol] 3.5 g/dL Normal 3.4-5.0 [facility] Comment on above: Performed By: #### U TOMAS, TSH, CMP, LIPID, T7 #### [facility] [address] [place] [address] Dr. Hugh Landis Albumin/Globulin [Mass ratio] 0.8 {ratio} Normal [facility] Comment on above: Performed By: #### U TOMAS, TSH, CMP, LIPID, T7 #### [facility] [address] [place] [address] Dr. Hugh Landis ALP [Catalytic activity/Vol] 63 U/L Normal 46-116 [facility] Comment on above: Performed By: #### U TOMAS, TSH, CMP, LIPID, T7 #### [facility] [address] [address] [address] Hugh Landis ALT [Catalytic activity/Vol] 26 U/L Normal 16-63 [facility] Comment on above: Performed By: #### U TOMAS, TSH, CMP, LIPID, T7 #### [facility] [address] [address] [address] Hugh Landis Anion gap [Moles/Vol] 12.7 mmol/L Normal [facility] Comment on above: Performed By: #### U TOMAS, TSH, CMP, LIPID, T7 #### [facility] [address] [address] [address] Hugh Landis AST [Catalytic activity/Vol] 14 U/L Critically low 15-37 [facility] Comment on above: Performed By: #### U TOMAS, TSH, CMP, LIPID, T7 #### [facility] [address] [address] [address] Hugh Landis Bilirubin [Mass/Vol] 0.3 mg/dL Normal 0.2-1.0 [facility] Comment on above: Performed By: #### U TOMAS, TSH, CMP, LIPID, T7 #### [facility] [address] [address] [address] Hugh Landis Calcium [Mass/Vol] 9.2 mg/dL Normal 8.5-10.1 [facility] Comment on above: Performed By: #### U TOMAS, TSH, CMP, LIPID, T7 #### [facility] [address] [address] [address] Hugh Landis Chloride [Moles/Vol] 105 mmol/L Normal 98-107 [facility] Comment on above: Performed By: #### U TOMAS, TSH, CMP, LIPID, T7 #### [facility] [address] [address] [address] Hugh Landis CO2 [Moles/Vol] 25.5 mmol/L Normal 21.0-32.0 [facility] Comment on above: Performed By: #### U TOMAS, TSH, CMP, LIPID, T7 #### [facility] [address] [address] [address] Hugh Landis Creatinine [Mass/Vol] 2.46 mg/dL Critically high 0.70-1.30 [facility] Comment on above: Performed By: #### U TOMAS, TSH, CMP, LIPID, T7 #### [facility] [address] [address] [address] Hugh Landis EGFR-AF CHINESE 33 mL/min/1.73m2 Critically low >=60 [facility] Comment on above: Performed By: #### U TOMAS, TSH, CMP, LIPID, T7 #### [facility] [address] [address] [address] Hugh Landis EGFR-NON AF CHINESE 27 mL/min/1.73m2 Critically low >=60 [facility] Comment on above: Performed By: #### U TOMAS, TSH, CMP, LIPID, T7 #### [facility] [address] [address] [address] Hugh Landis Globulin (S) [Mass/Vol] 4.5 g/dL Normal [facility] Comment on above: Performed By: #### U TOMAS, TSH, CMP, LIPID, T7 #### [facility] [address] [address] [address] Hugh Landis Glucose [Mass/Vol] 119 mg/dL Critically high 74-106 [facility] Comment on above: Performed By: #### U TOMAS, TSH, CMP, LIPID, T7 #### [facility] [address] [address] [address] Hugh Landis Potassium [Moles/Vol] 4.2 mmol/L Normal 3.5-5.1 [facility] Comment on above: Performed By: #### U TOMAS, TSH, CMP, LIPID, T7 #### [facility] [address] [address] [address] Hugh Landis Protein [Mass/Vol] 8.0 g/dL Normal 6.4-8.2 [facility] Comment on above: Performed By: #### U TOMAS, TSH, CMP, LIPID, T7 #### [facility] [address] [address] [address] Hugh Landis Sodium [Moles/Vol] 139 mmol/L Normal 136-145 [facility] Comment on above: Performed By: #### U TOMAS, TSH, CMP, LIPID, T7 #### [facility] [address] [address] [address] Hugh Landis Urea nitrogen [Mass/Vol] 49.0 mg/dL Critically high 7.0-18.0 [facility] Comment on above: Performed By: #### U TOMAS, TSH, CMP, LIPID, T7 #### [facility] [address] [id number] [address] Hugh Landis Urea nitrogen/Creatinine [Mass ratio] 19.9 mg/mg Normal [facility] Comment on above: Performed By: #### U TOMAS, TSH, CMP, LIPID, T7 #### [facility] [address] [address] [address] Hugh Landis TESTOSTERONE, FREE,DIRECT, T OTALon 08-14-2021 Free Testosterone(Direct) 5.9 pg/mL Critically low 7.2-24.0 [facility] Comment on above: Result Comment: Perf ormed at: BN Performed By: #### B MP #### [facility] [address] [place] [address] Dr. Hugh Landis Testosterone [Mass/Vol] 392 ng/dL Normal 264-916 [facility] Comment on above: Result Comment: Adul t male reference interval is based on a population of healthy nonobese males (BMI <30) between 19 and 39 years old. Gavi, et.al. JCEM 2017,102;3540-9815. PMID: [id number]. Performed at: CB Performed By: #### B MP #### [facility] [address] [place], [place] [id number] Dr. Hugh Landis VITAMIN B1 (THIAMINE)on 07-27 Vit. B1, Whole Blood 145.1 nmol/L Normal 66.5-200.0 [facility] Comment on above: Performed By: #### C MP, LIPID, TSH #### [facility] [id number] [address] Hugh Landis VITAMIN Aon 08-13-2021 Vitamin A 82.7 ug/dL Critically high 20.1-62.0 [facility] Comment on above: Result Comment: Refe rence [...] Administration. Performed By: #### P T #### [facility] [address] [place] [address] Dr. Hugh Landis ZINC SERUM OR PLASMAon 08-10 Zinc, Plasma or Serum 78 ug/dL Normal 44-115 [facility] Comment on above: Result Comment: Dete ction Limit = 5 Performed By: #### C MP, LIPID, TSH #### [facility] [address] [place] [address] Dr. Hugh Landis FOLATE ([facility])on Folate 12.9 ng/mL Normal >3.0 [facility] Comment on above: Result Comment: A se rum folate concentration of less than 3.1 ng/mL is considered to represent clinical deficiency. Performed By: #### P TT #### [facility] [address] [place] [address] Dr. Hugh Landis PTH INTACTon 08-09-2021 PTH, Intact 29 pg/mL Normal 15-65 [facility] Comment on above: Performed By: #### P TT #### [facility] [address] [place] [address] Dr. Hugh Landis CBC AUTO DIFFon 08-08-2021 BASO # 0.0 103/ul Normal 0.0-0.1 [facility] Comment on above: Performed By: #### C MP, LIPID, TSH #### [facility] [address] [place] [address] Dr. Hugh Landis Basophils/100 WBC (Bld) 0.6 % Normal 0.2-2.0 [facility] Comment on above: Performed By: #### C MP, LIPID, TSH #### [facility] [address] [place] [address] Dr. Hugh Landis EO # 0.2 103/ul Normal 0.0-0.7 [facility] Comment on above: Performed By: #### C MP, LIPID, TSH #### [facility] [address] [place] [address] Dr. Hugh Landis Eosinophils/100 WBC (Bld) 2.2 % Normal 0.9-7.0 [facility] Comment on above: Performed By: #### C MP, LIPID, TSH #### [facility] [address] [place] [address] Dr. Hugh Landis Erythrocyte distribution width (RBC) [Ratio] 13.4 % Normal 11.0-15.0 [facility] Comment on above: Performed By: #### C MP, LIPID, TSH #### [facility] [address] [place] [address] Dr. Hugh Landis Hematocrit (Bld) [Volume fraction] 38.2 % Critically low 42.0-54.0 [facility] Comment on above: Performed By: #### C MP, LIPID, TSH #### [facility] [address] [place] [address] Dr. Hugh Landis Hemoglobin (Bld) [Mass/Vol] 11.8 g/dL Critically low 14.0-18.0 [facility] Comment on above: Performed By: #### C MP, LIPID, TSH #### [facility] [address] [place] [address] Dr. Hugh Landis IG # 0.03 10e3/ul Normal 0.00-0.03 [facility] Comment on above: Performed By: #### C MP, LIPID, TSH #### [facility] [address] [place] [address] Dr. Hugh Landis IG % 0.4 % Normal 0.0-0.5 [facility] Comment on above: Performed By: #### C MP, LIPID, TSH #### [facility] [address] [place] [address] Dr. Hugh Landis LYMPH # 1.0 103/ul Critically low 1.2-3.8 [facility] Comment on above: Performed By: #### C MP, LIPID, TSH #### [facility] [address] [place] [address] Dr. Hugh Landis Lymphocytes/100 WBC (Bld) 14.9 % Critically low 20.5-60.0 [facility] Comment on above: Performed By: #### C MP, LIPID, TSH #### [facility] [address] [place] [address] Dr. Hugh Landis MANUAL DIFF REQ NO Normal [facility] Comment on above: Performed By: #### C MP, LIPID, TSH #### [facility] [address] [place] [address] Dr. Hugh Landis MCH (RBC) [Entitic mass] 28.5 pg Normal 25.9-34.0 [facility] Comment on above: Performed By: #### C MP, LIPID, TSH #### [facility] [address] [place] [address] Dr. Hugh Landis MCHC (RBC) [Mass/Vol] 30.9 g/dL Normal 29.9-35.2 [facility] Comment on above: Performed By: #### C MP, LIPID, TSH #### [facility] [address] [place] [address] Dr. Hugh Landis MCV (RBC) [Entitic vol] 92.3 fL Normal 80.0-94.0 [facility] Comment on above: Performed By: #### C MP, LIPID, TSH #### [facility] [address] [place] [address] Dr. Hugh Landis MONO # 0.7 103/ul Normal 0.3-0.8 [facility] Comment on above: Performed By: #### C MP, LIPID, TSH #### [facility] [address] [place] [address] Dr. Hugh Landis Monocytes/100 WBC (Bld) 10.6 % Normal 1.7-12.0 [facility] Comment on above: Performed By: #### C MP, LIPID, TSH #### [facility] [address] [place] [address] Dr. Hugh Landis NEUT # 4.9 103/ul Normal 1.4-6.5 [facility] Comment on above: Performed By: #### C MP, LIPID, TSH #### [facility] [address] [place] [address] Dr. Hugh Landis Neutrophils/100 WBC (Bld) 71.3 % Normal 43.0-75.0 [facility] Comment on above: Performed By: #### C MP, LIPID, TSH #### [facility] [address] [place] [address] Dr. Hugh Landis Platelet mean volume (Bld) [Entitic vol] 9.4 fL Critically low 9.5-13.5 [facility] Comment on above: Performed By: #### C MP, LIPID, TSH #### [facility] [address] [place] [address] Dr. Hugh Landis PLT 249 103/ul Normal 150-450 [facility] Comment on above: Performed By: #### C MP, LIPID, TSH #### [facility] [address] [place] [address] Dr. Hugh Landis RBC 4.14 106/ul Critically low 4.70-6.10 [facility] Comment on above: Performed By: #### C MP, LIPID, TSH #### [facility] [address] [place] [address] Dr. Hugh Landis WBC 6.9 103/ul Normal 4.0-11.0 [facility] Comment on above: Performed By: #### C MP, LIPID, TSH #### [facility] [address] [place] [address] Dr. Hugh Landis FERRITINon 08-08-2021 Ferritin [Mass/Vol] 154.0 ng/mL Normal 26.0-388.0 [facility] Comment on above: Performed By: #### C MP, LIPID, TSH #### [facility] [address] [place] [address] Dr. Hugh Landis GLYCOHEMOGLOBIN A1Con 2021 ADA RECOMMENDATION SEE BELOW Normal [facility] Comment on above: Result Comment: ADA RECOMMENDED LIMIT 4.0 - 6.0 ADA THERAPEUTIC TARGET < 7.0 ACTION SUGGESTED > 7.0 Performed By: #### P T #### [facility] [address] [address] [address] Hugh Landis Glucose [Mass/Vol] 140 mg/dL Normal [facility] Comment on above: Performed By: #### P T #### [facility] [address] [address] [address] Hugh Landis HbA1c (Bld) [Mass fraction] 6.5 % Critically high 4.5-6.2 [facility] Comment on above: Performed By: #### P T #### [facility] [address] [address] [address] Hugh Landis IRON AND TIBCon 08-08-2021 % SATURATION 13.6 % Normal [facility] Comment on above: Performed By: #### C MP, LIPID, TSH #### [facility] [address] [address] [address] Hugh Landis Iron [Mass/Vol] 45.0 ug/dL Critically low 65.0-175.0 [facility] Comment on above: Performed By: #### C MP, LIPID, TSH #### [facility] [address] [address] [address] Hugh Landis TIBC DIRECT 332.0 ug/dL Normal 250.0-450.0 [facility] Comment on above: Performed By: #### C MP, LIPID, TSH #### [facility] [address] [address] [address] Hugh Landis LIPID PROFILEon 08-08-2021 CHOL-HDL RATIO NORM SEE BELOW Normal [facility] Comment on above: Result Comment: 3.3 - 4.4 LOW RISK 4.4 - 7.1 AVERAGE RISK 7.1 - 11.0 MODERATE RISK >11.0 HIGH RISK Performed By: #### C MP, LIPID, TSH #### [facility] [address] [address] [address] Hugh Landis Cholesterol [Mass/Vol] 187 mg/dL Normal <=200 [facility] Comment on above: Performed By: #### C MP, LIPID, TSH #### [facility] [address] [address] [address] Hugh Landis Cholesterol in HDL [Mass/Vol] 51 mg/dL Normal 40-60 [facility] Comment on above: Performed By: #### C MP, LIPID, TSH #### [facility] [address] [address] [address] Hugh Landis Cholesterol in LDL [Mass/Vol] 101.8 mg/dL Normal [facility] Comment on above: Performed By: #### C MP, LIPID, TSH #### [facility] [address] [address] [address] Hugh Landis Cholesterol.total/Ch olesterol in HDL [Mass ratio] 3.7 {ratio} Normal [facility] Comment on above: Performed By: #### C MP, LIPID, TSH #### [facility] [address] [address] [address] Hugh Landis HDL NORMAL > or = 60 mg/dl - LO W CARDIOVASCULAR RISK <40 mg/dl - HIGH CARDIOVASCULAR RISK Normal [facility] Comment on above: Performed By: #### C MP, LIPID, TSH #### [facility] [address] [address] [address] Hugh Landis LDL CALC NORMAL SEE BELOW Normal [facility] Comment on above: Result Comment: <100 mg/dl OPTIMAL 100 - 129 mg/dl NEAR OR ABOVE OPTIMAL 130 - 159 mg/dl BORDERLINE HIGH 160 - 189 mg/dl HIGH >190 mg/dl VERY HIGH Performed By: #### C MP, LIPID, TSH #### [facility] [address] [address] [address] Hugh Landis Triglyceride [Mass/Vol] 171 mg/dL Critically high <=150 [facility] Comment on above: Performed By: #### C MP, LIPID, TSH #### [facility] [address] [address] [address] Hugh Landis VLDL CALC 34.2 mg/dL Normal [facility] Comment on above: Performed By: #### C MP, LIPID, TSH #### [facility] [address] [address] [address] Hugh Landis PROF 14(COMP METB)on 022 Albumin [Mass/Vol] 3.6 g/dL Normal 3.4-5.0 [facility] Comment on above: Performed By: #### C MP, LIPID, TSH #### [facility] [address] [address] [address] Hugh Landis Albumin/Globulin [Mass ratio] 0.8 {ratio} Normal [facility] Comment on above: Performed By: #### C MP, LIPID, TSH #### [facility] [address] [address] [address] Hugh Landis ALP [Catalytic activity/Vol] 64 U/L Normal 46-116 [facility] Comment on above: Performed By: #### C MP, LIPID, TSH #### [facility] [address] [address] [address] Hugh Landis ALT [Catalytic activity/Vol] 28 U/L Normal 16-63 [facility] Comment on above: Performed By: #### C MP, LIPID, TSH #### [facility] [address] [address] [address] Hugh Landis Anion gap [Moles/Vol] 15.0 mmol/L Normal [facility] Comment on above: Performed By: #### C MP, LIPID, TSH #### [facility] [address] [address] [address] Hugh Landis AST [Catalytic activity/Vol] 14 U/L Critically low 15-37 [facility] Comment on above: Performed By: #### C MP, LIPID, TSH #### [facility] [address] [address] [address] Hugh Landis Bilirubin [Mass/Vol] 0.5 mg/dL Normal 0.2-1.0 [facility] Comment on above: Performed By: #### C MP, LIPID, TSH #### [facility] [address] [address] [address] Hugh Landis Calcium [Mass/Vol] 9.6 mg/dL Normal 8.5-10.1 [facility] Comment on above: Performed By: #### C MP, LIPID, TSH #### [facility] [address] [address] [address] Hugh Landis Chloride [Moles/Vol] 105 mmol/L Normal 98-107 [facility] Comment on above: Performed By: #### C MP, LIPID, TSH #### [facility] [address] [address] [address] Hugh Landis CO2 [Moles/Vol] 23.5 mmol/L Normal 21.0-32.0 [facility] Comment on above: Performed By: #### C MP, LIPID, TSH #### [facility] [address] [address] [address] Hugh Landis Creatinine [Mass/Vol] 2.69 mg/dL Critically high 0.70-1.30 [facility] Comment on above: Performed By: #### C MP, LIPID, TSH #### [facility] [address] [address] [address] Hugh Landis EGFR-AF CHINESE 30 mL/min/1.73m2 Critically low >=60 [facility] [facility] Comment on above: Performed By: #### C MP, LIPID, TSH #### [facility] [address] [address] [address] Hugh Landis EGFR-NON AF CHINESE 25 mL/min/1.73m2 Critically low >=60 [facility] Comment on above: Performed By: #### C MP, LIPID, TSH #### [facility] [address] [address] [address] Hugh Landis Globulin (S) [Mass/Vol] 4.3 g/dL Normal [facility] Comment on above: Performed By: #### C MP, LIPID, TSH #### [facility] [address] [address] [address] Hugh Landis Glucose [Mass/Vol] 80 mg/dL Normal 74-106 [facility] Comment on above: Performed By: #### C MP, LIPID, TSH #### [facility] [address] [address] [address] Hugh Landis Potassium [Moles/Vol] 5.5 mmol/L Critically high 3.5-5.1 [facility] Comment on above: Performed By: #### C MP, LIPID, TSH #### [facility] [address] [place] [address] Dr. Hugh Landis Protein [Mass/Vol] 7.9 g/dL Normal 6.4-8.2 [facility] Comment on above: Performed By: #### C MP, LIPID, TSH #### [facility] [address] [place] [address] Dr. Hugh Landis Sodium [Moles/Vol] 138 mmol/L Normal 136-145 [facility] Comment on above: Performed By: #### C MP, LIPID, TSH #### [facility] [address] [place] [address] Dr. Hugh Landis Urea nitrogen [Mass/Vol] 47.0 mg/dL Critically high 7.0-18.0 [facility] Comment on above: Performed By: #### C MP, LIPID, TSH #### [facility] [address] [place] [address] Dr. Hugh Landis Urea nitrogen/Creatinine [Mass ratio] 17.5 mg/mg Normal [facility] Comment on above: Performed By: #### C MP, LIPID, TSH #### [facility] [address] [place] [address] Dr. Hugh Landis TSHon 08-08-2021 TSH 1.069 uIU/mL Normal 0.358-3.740 [facility] Comment on above: Performed By: #### C MP, LIPID, TSH #### [facility] [address] [place] [address] Dr. Hugh Landis TSH RANGE SEE BELOW Normal [facility] Comment on above: Result Comment: <0.3 4 UIU/ml HYPERTHYROID 0.34-5.60 UIU/ml EUTHYROID >5.60 UIU/ml HYPOTHYROID Performed By: #### C MP, LIPID, TSH #### [facility] [address] [place] [address] Dr. Hugh Landis VITAMIN B12on 08-08-2021 Cobalamin (Vitamin B12) [Mass/Vol] 336.0 pg/mL Normal 193.0-986.0 [facility] Comment on above: Performed By: #### C MP, LIPID, TSH #### [facility] [address] [place], [place] [phone] Dr. Hugh Landis VITAMIN D 25 OHon 08-08-2021 VIT D 25-OH 36.6 ng/mL Normal [facility] Comment on above: Performed By: #### C MP, LIPID, TSH #### [facility] [address] [place], [place] [phone] Dr. Hugh Landis VIT D RANGES SEE BELOW Normal [facility] Comment on above: Result Comment: <20 ng/mL Vit D deficient 20 - <30 ng/mL Vit D insufficient 30 - 100 ng/mL Vit D sufficient >100 ng/mL Potential Toxicity Performed By: #### C MP, LIPID, TSH #### [facility] [address] [place] [address] Dr. Hugh Landis KNEE RIGHT 3 Son 2 KNEE RIGHT 3 [facility] Department of Radiology [address] [place] [id number] ======== Patient Name: SUKHDEEP SIMENTAL : [...] disruption. Electronically signed: Cole Richmond. Transcribed by: [email or web address], User Resident: Electronically Signed by: COLE RICHMOND @ 07/23/2021 10:50 PM Normal [facility] Comment on above: Order Comment: Evalu ate CBCon 07-18-2021 Erythrocyte distribution width (RBC) [Ratio] 13.5 % Normal 11.8-14.4 [facility] Comment on above: Performed By: #### C BC, PT, PTT, BMP #### [employer] [address] [place] [address] Statistical Technician: Good Melendez MD #### ANICOT #### [facility] [address], [place] [id number] Statistical Technician: Troy Link MD Hematocrit (Bld) [Volume fraction] 39.1 % Low 40.7-50.3 [facility] Comment on above: Performed By: #### C BC, PT, PTT, BMP #### [employer] [address] [place] [address] [phone] Statistical Technician: Good Melendez MD #### ANICOT #### [facility] [address] [place], [place] [id number] Statistical Technician: Troy Link MD Hemoglobin (Bld) [Mass/Vol] 12.3 g/dL Low 13.0-17.0 [facility] Comment on above: Performed By: #### C BC, PT, PTT, BMP #### [address] [phone] Statistical Technician: Good Melendez MD #### ANICOT #### [facility] [address] [place], [place] [id number] Statistical Technician: Troy Link MD MCH (RBC) [Entitic mass] 28.8 pg Normal 25.2-33.5 [facility] Comment on above: Performed By: #### C BC, PT, PTT, BMP #### [address] [phone] Statistical Technician: Good Melendez MD #### ANICOT #### [facility] [address] [place], [place] [id number] Statistical Technician: Troy Link MD MCHC (RBC) [Mass/Vol] 31.5 g/dL Normal 28.4-34.8 [facility] Comment on above: Performed By: #### C BC, PT, PTT, BMP #### [address] [phone] Statistical Technician: Good Melendez MD #### ANICOT #### [facility] [address] [place], [place] [id number] Statistical Technician: Troy Link MD MCV (RBC) [Entitic vol] 91.6 fL Normal 82.6-102.9 [facility] Comment on above: Performed By: #### C BC, PT, PTT, BMP #### [address] [phone] Statistical Technician: Good Melendez MD #### ANICOT #### [facility] [address] [place] [address] Statistical Technician: Troy Link MD NRBC Automated 0.0 per 100 WBC Normal 0.0 [facility] Comment on above: Performed By: #### C BC, PT, PTT, BMP #### [address] [address] Statistical Technician: Good Melendez MD #### ANICOT #### [facility] [address] [place] [address] Statistical Technician: Troy Link MD Platelet mean volume (Bld) [Entitic vol] 9.7 fL Normal 8.1-13.5 [facility] Comment on above: Performed By: #### C BC, PT, PTT, BMP #### [place] [address] Statistical Technician: Good Melendez MD #### ANICOT #### [facility] [address] [place] [address] Statistical Technician: Troy Link MD Platelets (Bld) [#/Vol] 190 10*3/uL Normal 138-453 [facility] Comment on above: Performed By: #### C BC, PT, PTT, BMP #### [address] [address] Statistical Technician: Good Melendez MD #### ANICOT #### [facility] [address] [place] [address] Statistical Technician: Troy Link MD RBC (Bld) [#/Vol] 4.27 10*6/uL Normal 4.21-5.77 [facility] Comment on above: Performed By: #### C BC, PT, PTT, BMP #### [address] [phone] Statistical Technician: Good Melendez MD #### ANICOT #### [facility] [address] [place], [place] [id number] Statistical Technician: Troy Link MD WBC (Bld) [#/Vol] 8.7 10*3/uL Normal 3.5-11.3 [facility] Comment on above: Performed By: #### C BC, PT, PTT, BMP #### [facility] [address] [place] [address] Statistical Technician: Good Melendez MD #### ANICOT #### [facility] [address] [place], [place] [id number] Statistical Technician: Troy Link MD APTTon 07-17-2021 aPTT Coag (Bld) [Time] 20.8 s Normal 20.5-30.5 [facility] Comment on above: Result Comment: IV Heparin Therapy Range: 48.6-77.8 Performed By: #### C BC, PT, PTT, BMP #### [address] [address] Statistical Technician: Good Melendez MD #### ANICOT #### [facility] [address] [place], [place] [id number] Statistical Technician: Troy Link MD aPTT Coag (Bld) [Time] 37.9 s High 20.5-30.5 [facility] Comment on above: Result Comment: IV Heparin Therapy Range: 48.6-77.8 Performed By: #### C BC, PT, PTT, BMP #### [address] [address] Statistical Technician: Good Melendez MD #### ANICOT #### [facility] [address] [place], [place] [id number] Statistical Technician: Troy Link MD aPTT Coag (Bld) [Time] 78.1 s High 20.5-30.5 [facility] Comment on above: Result Comment: IV Heparin Therapy Range: 48.6-77.8 Performed By: #### C BC, PT, PTT, BMP #### [address] [phone] Statistical Technician: Good Melendez MD #### ANICOT #### [facility] [address] [place], [place] [id number] Statistical Technician: Troy Link MD Basic Metab w/rfx MGon 07-17 (cont.) Normal [facility] Comment on above: Result Comment: Aver age GFR for 50-59 years old: 93 mL/min/1.73sq m Chronic Kidney Disease: <60 mL/min/1.73sq m Kidney failure: <15 mL/min/1.73sq m eGFR calculated using average adult body mass. Additional eGFR calculator available at: http://www.[employer]ils/multiple_crcl_2011.htm Performed By: #### C BC, PT, PTT, BMP #### [address] [phone] Statistical Technician: Good Melendez MD #### ANAPARNAT #### [facility] [address] [place] [address] Statistical Technician: Troy Link MD Anion gap [Moles/Vol] 9 mmol/L Normal 9-17 [facility] Comment on above: Performed By: #### C BC, PT, PTT, BMP #### [facility] [address] [place] [address] Statistical Technician: Good Melendez MD #### ANICOT #### [facility] [address] [place] [address] Statistical Technician: Troy Link MD Calcium [Mass/Vol] 9.3 mg/dL Normal 8.6-10.4 [facility] Comment on above: Performed By: #### C BC, PT, PTT, BMP #### [address] [address] Statistical Technician: Good Melendez MD #### ANICOT #### [facility] [address] [place] [address] Statistical Technician: Troy Link MD Chloride [Moles/Vol] 106 mmol/L Normal 98-107 [facility] Comment on above: Performed By: #### C BC, PT, PTT, BMP #### [address] [address] Statistical Technician: Good Melendez MD #### ANICOT #### [address] [address] Statistical Technician: Troy Lnik MD CO2 [Moles/Vol] 23 mmol/L Normal 20-31 [facility] Comment on above: Performed By: #### C BC, PT, PTT, BMP #### [address] [address] Statistical Technician: Good Melendez MD #### ANICOT #### [facility] [address] [place] [address] Statistical Technician: Troy Link MD Creatinine [Mass/Vol] 1.40 mg/dL High 0.70-1.20 [facility] Comment on above: Performed By: #### C BC, PT, PTT, BMP #### [address] [address] Statistical Technician: Good Melendez MD #### ANICOT #### [facility] [address] [place] [address] Statistical Technician: Troy Link MD GFR, Amer >60 Normal >60 [facility] Comment on above: Performed By: #### C BC, PT, PTT, BMP #### [address] [place] [address] Statistical Technician: Good Melendez MD #### ANICOT #### [facility] [address] [place] [address] Statistical Technician: Troy Link MD GFR,non Amer 52 mL/min Low >60 [facility] Comment on above: Performed By: #### C BC, PT, PTT, BMP #### [address] [address] Statistical Technician: Good Melendez MD #### ANICOT #### [facility] [address] [place] [address] Statistical Technician: Troy Link MD Glucose [Mass/Vol] 170 mg/dL High 70-99 [facility] Comment on above: Performed By: #### C BC, PT, PTT, BMP #### [address] [address] Statistical Technician: Good Melendez MD #### ANICOT #### [facility] [address] [place] [address] Statistical Technician: Troy Link MD Potassium [Moles/Vol] 4.6 mmol/L Normal 3.7-5.3 [facility] Comment on above: Performed By: #### C BC, PT, PTT, BMP #### [address] [address] Statistical Technician: Good Melendez MD #### ANICOT #### [facility] [address] [place] [address] Statistical Technician: Troy Link MD Sodium [Moles/Vol] 138 mmol/L Normal 135-144 [facility] Comment on above: Performed By: #### C BC, PT, PTT, BMP #### [facility] [address] [place] [address] Statistical Technician: Good Melendez MD #### ANICOT #### [facility] [address] [place] [address] Statistical Technician: Troy Link MD Urea nitrogen [Mass/Vol] 33 mg/dL High 6-20 [facility] Comment on above: Performed By: #### C BC, PT, PTT, BMP #### [address] [phone] Statistical Technician: Good Melendez MD #### ANICOT #### [facility] [address] [place] [address] Statistical Technician: Troy Link MD Basic Metabolic Profon 07-17 (cont.) Normal [facility] Comment on above: Result Comment: Aver age GFR for 50-59 years old: 93 mL/min/1.73sq m Chronic Kidney Disease: <60 mL/min/1.73sq m Kidney failure: <15 mL/min/1.73sq m eGFR calculated using average adult body mass. Additional eGFR calculator available at: http://www.[employer].com/multiple_crcl_2011.htm Performed By: #### C BC, PT, PTT, BMP #### [address] [phone] Statistical Technician: Good Melendez MD #### ANICOT #### [facility] [address] [place], [place] [id number] Statistical Technician: Troy Link MD Anion gap [Moles/Vol] 8 mmol/L Low 9-17 [facility] Comment on above: Performed By: #### C BC, PT, PTT, BMP #### [address] [address] Statistical Technician: Good Melendez MD #### ANICOT #### [facility] [address] [place], [place] [id number] Statistical Technician: Troy Link MD Calcium [Mass/Vol] 9.5 mg/dL Normal 8.6-10.4 [facility] Comment on above: Performed By: #### C BC, PT, PTT, BMP #### [address] [address] Statistical Technician: Good Melendez MD #### ANICOT #### [facility] [address] [place], [place] [id number] Statistical Technician: Troy Link MD Chloride [Moles/Vol] 104 mmol/L Normal 98-107 [facility] Comment on above: Performed By: #### C BC, PT, PTT, BMP #### [address] [phone] Statistical Technician: Good Melendez MD #### ANICOT #### [facility] [address] [place], [place] [id number] Statistical Technician: Troy Link MD CO2 [Moles/Vol] 23 mmol/L Normal 20-31 [facility] Comment on above: Performed By: #### C BC, PT, PTT, BMP #### [address] [address] Statistical Technician: Good Melendez MD #### ANICOT #### [facility] [address] [place] [address] Statistical Technician: Troy Link MD Creatinine [Mass/Vol] 1.34 mg/dL High 0.70-1.20 [facility] Comment on above: Performed By: #### C BC, PT, PTT, BMP #### [address] [address] Statistical Technician: Good Melendez MD #### ANICOT #### [facility] [address] [place] [address] Statistical Technician: Troy Link MD GFR, Amer >60 Normal >60 [facility] Comment on above: Performed By: #### C BC, PT, PTT, BMP #### [address] [phone] Statistical Technician: Good Melendez MD #### ANICOT #### [facility] [address] [place], [place] [id number] Statistical Technician: Troy Link MD GFR,non Amer 55 mL/min Low >60 [facility] Comment on above: Performed By: #### C BC, PT, PTT, BMP #### [address] [phone] Statistical Technician: Good Melendez MD #### ANICOT #### [facility] [address] [place] [address] Statistical Technician: Troy Link MD Glucose [Mass/Vol] 136 mg/dL High 70-99 [facility] Comment on above: Performed By: #### C BC, PT, PTT, BMP #### [address] [phone] Statistical Technician: Good Melendez MD #### ANICOT #### [facility] [address] [place] [address] Statistical Technician: Troy Link MD Potassium [Moles/Vol] 4.7 mmol/L Normal 3.7-5.3 [facility] Comment on above: Performed By: #### C BC, PT, PTT, BMP #### [address] [address] Statistical Technician: Good Melendez MD #### ANICOT #### [facility] [address] [place], [place] [id number] Statistical Technician: Troy Link MD Sodium [Moles/Vol] 135 mmol/L Normal 135-144 [facility] Comment on above: Performed By: #### C BC, PT, PTT, BMP #### [facility] [address] [place] [address] Statistical Technician: Good Melendez MD #### ANICOT #### [facility] [address] [place] [address] Statistical Technician: Troy Link MD Urea nitrogen [Mass/Vol] 31 mg/dL High 6-20 [facility] Comment on above: Performed By: #### C BC, PT, PTT, BMP #### [address] [address] Statistical Technician: Good Melendez MD #### ANICOT #### [facility] [address] [place], [place] [id number] Statistical Technician: Troy Link MD Fibrinogenon 07-17-2021 Fibrinogen 404 mg/dL Normal 140-420 [facility] Comment on above: Performed By: #### C BC, PT, PTT, BMP #### [address] [address] Statistical Technician: Good Melendez MD #### ANICOT #### [facility] [address] [place], [place] [id number] Statistical Technician: Troy Link MD Fibrinogen 395 mg/dL Normal 140-420 [facility] Comment on above: Performed By: #### C BC, PT, PTT, BMP #### [facility] [address] [place] [address] Statistical Technician: Good Melendez MD #### ANICOT #### [facility] [address] [place] [address] Statistical Technician: Troy Link MD Hemoglobin A1Con 07-17-2021 Glucose [Mass/Vol] 169 mg/dL Normal [facility] Comment on above: Result Comment: The ADA and AACC recommend providing the estimated average glucose result to permit better patient understanding of their HBA1c result. Performed By: #### C BC, PT, PTT, BMP #### [facility] [address] [place] [address] Statistical Technician: Good Melendez MD #### ANICOT #### [facility] [address] [place], [place] [id number] Statistical Technician: Troy Link MD HbA1c (Bld) [Mass fraction] 7.5 % High 4.0-6.0 [facility] Comment on above: Performed By: #### C BC, PT, PTT, BMP #### [facility] [address] [place] [address] Statistical Technician: Good Melendez MD #### ANICOT #### [facility] [address] [place] [address] Statistical Technician: Troy Link MD PTon 07-17-2021 INR Coag (PPP) [Relative time] 1.2 {INR} Normal [facility] Comment on above: Result Comment: Therapeutic Range: Moderate Anticoagulant Intensity: INR = 2.0-3.0 High Anticoagulant Intensity: INR = 2.5-3.5 Performed By: #### C BC, PT, PTT, BMP #### [facility] [address] [place] [address] Statistical Technician: Good Melendez MD #### ANICOT #### [facility] [address] [place], [place] [id number] Statistical Technician: Troy Link MD PT Coag (PPP) [Time] 12.6 s High 9.1-12.3 [facility] Comment on above: Performed By: #### C BC, PT, PTT, BMP #### [facility] [address] [place] [address] Statistical Technician: Good Melendez MD #### ANICOT #### [facility] [address] [place], [place] [id number] Statistical Technician: Troy Link MD Troponinon 07-17-2021 Troponin, High Sens 38 ng/L High 0-22 [facility] Comment on above: Result Comment: High Sensitivity Troponin values cannot be compared with other Troponin methodologies. Patients with high levels of Biotin oral intake (i.e >5mg/day) may have falsely decreased Troponin levels. Samples collected within 8 hours of biotin intake may require additional information for diagnosis. Performed By: #### C BC, PT, PTT, BMP #### [facility] [address] [place] [address] Statistical Technician: Good Melendez MD #### ANICOT #### [facility] [address] [place], [place] [id number] Statistical Technician: Troy Link MD APTTon 07-16-2021 aPTT Coag (Bld) [Time] 51.1 s High 20.5-30.5 [facility] Comment on above: Result Comment: IV Heparin Therapy Range: 48.6-77.8 Performed By: #### C BC, PT, PTT, BMP #### [facility] [address] [place] [address] Statistical Technician: Good Melendez MD #### ANICOT #### [facility] [address] [place], [place] [id number] Statistical Technician: Troy Link MD aPTT Coag (Bld) [Time] 31.1 s High 20.5-30.5 [facility] Comment on above: Result Comment: IV Heparin Therapy Range: 48.6-77.8 Performed By: #### C BC, PT, PTT, BMP #### [facility] [address] [place] [address] Statistical Technician: Good Melendez MD #### ANICOT #### [facility] [address] [place], [place] [id number] Statistical Technician: Troy Link MD Brain Natri. Peptideon 07-16 Natriuretic peptide B (Bld) [Mass/Vol] 1492 pg/mL High <300 [facility] Comment on above: Result Comment: An age-independent cutoff point of 300 pg/ml has a 98% negative predictive value excluding acute heart failure. Performed By: #### C BC, PT, PTT, BMP #### [facility] [address] [place] [address] Statistical Technician: Good Melendez MD #### ANICOT #### [facility] [address] [place], [place] [id number] Statistical Technician: Troy Link MD [facility] Erythrocyte distribution width (RBC) [Ratio] 13.6 % Normal 11.8-14.4 [facility] Comment on above: Performed By: #### C BC, PT, PTT, BMP #### [facility] [address] [place] [address] Statistical Technician: Good Melendez MD #### ANICOT #### [facility] [address] [place] [address] Statistical Technician: Troy Link MD Hematocrit (Bld) [Volume fraction] 40.3 % Low 40.7-50.3 [facility] Comment on above: Performed By: #### C BC, PT, PTT, BMP #### [facility] [address] [place] [address] Statistical Technician: Good Melendez MD #### ANICOT #### [facility] [address] [place] [address] Statistical Technician: Troy Link MD Hemoglobin (Bld) [Mass/Vol] 13.0 g/dL Normal 13.0-17.0 [facility] Comment on above: Performed By: #### C BC, PT, PTT, BMP #### [facility] [address] [place] [address] [phone] Statistical Technician: Good Melendez MD #### ANICOT #### [facility] [address] [place] [address] Statistical Technician: Troy Link MD MCH (RBC) [Entitic mass] 28.7 pg Normal 25.2-33.5 [facility] Comment on above: Performed By: #### C BC, PT, PTT, BMP #### [address] [address] Statistical Technician: Good Melendez MD #### ANICOT #### [facility] [address] [place] [address] Statistical Technician: Troy Link MD MCHC (RBC) [Mass/Vol] 32.3 g/dL Normal 28.4-34.8 [facility] Comment on above: Performed By: #### C BC, PT, PTT, BMP #### [address] [address] Statistical Technician: Good Melendez MD #### ANICOT #### [address] [address] Statistical Technician: Troy Link MD MCV (RBC) [Entitic vol] 89.0 fL Normal 82.6-102.9 [facility] Comment on above: Performed By: #### C BC, PT, PTT, BMP #### [address] [address] Statistical Technician: Good Melendez MD #### ANICOT #### [facility] [address] [place] [address] Statistical Technician: Troy Link MD NRBC Automated 0.0 per 100 WBC Normal 0.0 [facility] Comment on above: Performed By: #### C BC, PT, PTT, BMP #### [facility] [address] Statistical Technician: Good Melendez MD #### ANICOT #### [facility] [address] [place] [address] Statistical Technician: Troy Link MD Platelet mean volume (Bld) [Entitic vol] 9.6 fL Normal 8.1-13.5 [facility] Comment on above: Performed By: #### C BC, PT, PTT, BMP #### [address] [address] Statistical Technician: Good Melendez MD #### ANICOT #### [facility] [address] [place] [address] Statistical Technician: Troy Link MD Platelets (Bld) [#/Vol] 203 10*3/uL Normal 138-453 [facility] Comment on above: Performed By: #### C BC, PT, PTT, BMP #### [address] [address] Statistical Technician: Good Melendez MD #### ANICOT #### [facility] [address] [place] [address] Statistical Technician: Troy Link MD RBC (Bld) [#/Vol] 4.53 10*6/uL Normal 4.21-5.77 [facility] Comment on above: Performed By: #### C BC, PT, PTT, BMP #### [address] [address] Statistical Technician: Good Melendez MD #### ANICOT #### [facility] [address] [place] [address] Statistical Technician: Troy Link MD WBC (Bld) [#/Vol] 6.8 10*3/uL Normal 3.5-11.3 [facility] Comment on above: Performed By: #### C BC, PT, PTT, BMP #### [facility] [address] [place] [address] Statistical Technician: Good Melendez MD #### YASSINET #### [facility] [address] [place], [place] [id number] Statistical Technician: Troy Link MD Troponinon 07-16-2021 Troponin, High Sens 59 ng/L Critically high 0-22 [facility] Comment on above: Result Comment: High Sensitivity Troponin values cannot be compared with other Troponin methodologies. Patients with high levels of Biotin oral intake (i.e >5mg/day) may have falsely decreased Troponin levels. Samples collected within 8 hours of biotin intake may require additional information for diagnosis. Performed By: #### C BC, PT, PTT, BMP #### [facility] [address] [place] [address] Statistical Technician: Good Melendez MD #### YASSINET #### [facility] [address] [place] [address] Statistical Technician: Troy Link MD EKG 12 LeadOrdered By: Matias Varela on 05-26-2021 Atrial Rate 108 BPM [employer] Phone: P [place] -96 degrees [employer] Phone: P-R Interval 192 ms [employer] Phone: Q-T Interval 348 ms [employer] Phone: QRS Duration 94 ms [employer] Phone: QTc Calculation (Bazett) 466 ms [employer] Phone: R [place] -116 degrees [employer] Phone: T [place] -114 degrees [employer] Phone: Ventricular Rate 108 BPM [employer] Work Phone: [employer] Phone: EKG 12 Leadon 05-26-2021 Arm lead reversal Sinus Tachycardia V Leads placement error Repeat ECG When compared with ECG of 08-MAY-2021 11:42, Significant changes have occurred PN STV Matias Andrade MD - 05/26/2021 Arm lead reversal Sinus Tachycardia V Leads placement error Repeat ECG When compared with ECG of 08-MAY-2021 11:42, Significant changes have occurred [facility] Work Phone: SURGICAL PATHOLOGY REPORTon 05-26-2021 Surgical [...] with no areas of granularity or masses. 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 Technician sections 1cs. tm Microscopic Description Sections of gastric wall show lamina propria without evidence of significant inflammation. There is no evidence of intestinal metaplasia or dysplasia. There is no evidence of organisms suspicious for Helicobacter with the routine H&E stain. SURGICAL PATHOLOGY CONSULTATION Patient Name: SUKHDEEP SIMENTAL [facility] Rec: [id number] Path Number: [id number] [facility] ANATOMIC PATHOLOGY [address] [place] [address]. [place], [place] [address] [employer] Basic Metabolic Panelon 03-3 Anion gap [Moles/Vol] 10 mmol/L 9 - 17 mmol/L [facility] Calcium [Mass/Vol] 9.1 mg/dL 8.6 - 10. 4 mg/dL [facility] Chloride [Moles/Vol] 106 mmol/L 98 - 10 7 mmol/L [facility] CO2 [Moles/Vol] 23 mmol/L 20 - 31 mmol/L [facility] Creatinine [Mass/Vol] 1.1 mg/dL 0.70 - 1.20 mg/dL [facility] GFR >60 >60 mL/min [employer] GFR Non- >60 >60 mL/min [employer] GFR/1.73 sq M.predicted MDRD (S/P/Bld) [Vol rate/Area] [facility] Comment on above: Average GFR for 50-5 9 years old: 93 mL/min/1.73sq m Chronic Kidney Disease: <60 mL/min/1.73sq m Kidney failure: <15 mL/min/1.73sq m eGFR calculated using average adult body mass. Additional eGFR calculator available at: http://www.ConforMIS/RentMama_crcl_2012.htm Glucose [Mass/Vol] 127 mg/dL High 70 - 99 mg/dL [facility] Interpretation and review of laboratory results Abnormal [facility] Potassium [Moles/Vol] 4.8 mmol/L 3.7 - 5.3 mmol/L [facility] Sodium [Moles/Vol] 139 mmol/L 135 - 144 mmol/L [employer] Urea nitrogen (BldV) [Mass/Vol] 24 mg/dL High 6 - 20 mg/dL [facility] [employer] Basic Metabolic Profon 05-25 (cont.) Normal [facility] Comment on above: Result Comment: Aver age GFR for 50-59 years old: 93 mL/min/1.73sq m Chronic Kidney Disease: <60 mL/min/1.73sq m Kidney failure: <15 mL/min/1.73sq m eGFR calculated using average adult body mass. Additional eGFR calculator available at: http://www.ConforMIS/RentMama_crcl_2012.htm Performed By: #### C BC, PT, PTT, BMP #### [employer] [address] [place], [place] [id number] Statistical Technician: Good Melendez MD #### JIMENA #### [facility] [address] [place] [address] Statistical Technician: Troy Link MD Anion gap [Moles/Vol] 10 mmol/L Normal - [facility] Comment on above: Performed By: #### C BC, PT, PTT, BMP #### [facility] [address] [place] [address] Statistical Technician: Good Melendez MD #### ANICOT #### [facility] [address] [place], [place] [id number] Statistical Technician: Troy Link MD Calcium [Mass/Vol] 9.1 mg/dL Normal 8.6-10.4 [facility] Comment on above: Performed By: #### C BC, PT, PTT, BMP #### [address] [address] Statistical Technician: Good Melendez MD #### ANICOT #### [address] [id number] Statistical Technician: Troy Link MD Chloride [Moles/Vol] 106 mmol/L Normal 98-107 [facility] Comment on above: Performed By: #### C BC, PT, PTT, BMP #### [address] [address] Statistical Technician: Good Melendez MD #### ANICOT #### [address] [id number] Statistical Technician: Troy Link MD CO2 [Moles/Vol] 23 mmol/L Normal 20-31 [facility] Comment on above: Performed By: #### C BC, PT, PTT, BMP #### [address] [address] Statistical Technician: Good Melendez MD #### ANICOT #### [facility] [address] [place], [place] [id number] Statistical Technician: Troy Link MD Creatinine [Mass/Vol] 1.10 mg/dL Normal 0.70-1.20 [facility] Comment on above: Performed By: #### C BC, PT, PTT, BMP #### [facility] [address] [place] [address] Statistical Technician: Good Melendez MD #### ANICOT #### [facility] [address] [place], [place] [id number] Statistical Technician: Troy Link MD GFR, Amer >60 Normal >60 [facility] Comment on above: Performed By: #### C BC, PT, PTT, BMP #### [facility] [address] [place] [address] Statistical Technician: Good Melendez MD #### ANICOT #### [facility] [address] [place] [address] Statistical Technician: Troy Link MD GFR,non Amer >60 Normal >60 [facility] Comment on above: Performed By: #### C BC, PT, PTT, BMP #### [address] [address] Statistical Technician: Good Melendez MD #### ANICOT #### [facility] [address] [place] [address] Statistical Technician: Troy Link MD Glucose [Mass/Vol] 127 mg/dL High 70-99 [facility] Comment on above: Performed By: #### C BC, PT, PTT, BMP #### [facility] [address] [place] [address] Statistical Technician: Good Melendez MD #### ANICOT #### [facility] [address] [place] [address] Statistical Technician: Troy Link MD Potassium [Moles/Vol] 4.8 mmol/L Normal 3.7-5.3 [facility] Comment on above: Performed By: #### C BC, PT, PTT, BMP #### [facility] [address] [place] [id number] Statistical Technician: Good Melendez MD #### ANICOT #### [facility] [address] [place] [address] Statistical Technician: Troy Link MD Sodium [Moles/Vol] 139 mmol/L Normal 135-144 [facility] Comment on above: Performed By: #### C BC, PT, PTT, BMP #### [address] [address] Statistical Technician: Good Melendez MD #### ANICOT #### [facility] [address] [place] [address] Statistical Technician: Troy Link MD Urea nitrogen [Mass/Vol] 24 mg/dL High 6-20 [facility] Comment on above: Performed By: #### C BC, PT, PTT, BMP #### [address] [address] Statistical Technician: Good Melendez MD #### ANICOT #### [facility] [address] [place] [address] Statistical Technician: Troy Link MD [facility] Erythrocyte distribution width (RBC) [Ratio] 13.9 % Normal 11.8-14.4 [facility] Comment on above: Performed By: #### C BC, PT, PTT, BMP #### [facility] [address] [place] [address] Statistical Technician: Good Melendez MD #### ANICOT #### [facility] [address] [place] [address] Statistical Technician: Troy Link MD Hematocrit (Bld) [Volume fraction] 39.5 % Low 40.7-50.3 [facility] Comment on above: Performed By: #### C BC, PT, PTT, BMP #### [address] [address] Statistical Technician: Good Melendez MD #### ANICOT #### [facility] [address] [place] [address] Statistical Technician: Troy Link MD Hemoglobin (Bld) [Mass/Vol] 12.2 g/dL Low 13.0-17.0 [facility] Comment on above: Performed By: #### C BC, PT, PTT, BMP #### [address] [address] Statistical Technician: Good Melendez MD #### ANICOT #### [facility] [address] [place] [address] Statistical Technician: Troy Link MD MCH (RBC) [Entitic mass] 30.2 pg Normal 25.2-33.5 [facility] Comment on above: Performed By: #### C BC, PT, PTT, BMP #### [address] [address] Statistical Technician: Good Melendez MD #### ANICOT #### [facility] [address] [place] [address] Statistical Technician: Troy Link MD MCHC (RBC) [Mass/Vol] 30.9 g/dL Normal 28.4-34.8 [facility] Comment on above: Performed By: #### C BC, PT, PTT, BMP #### [address] [address] Statistical Technician: Good Melendez MD #### ANICOT #### [facility] [address] [place] [address] Statistical Technician: Troy Link MD MCV (RBC) [Entitic vol] 97.8 fL Normal 82.6-102.9 [facility] Comment on above: Performed By: #### C BC, PT, PTT, BMP #### [address] [address] Statistical Technician: Good Melendez MD #### ANICOT #### [facility] [address] [place] [address] Statistical Technician: Troy Link MD NRBC Automated 0.0 per 100 WBC Normal 0.0 [facility] Comment on above: Performed By: #### C BC, PT, PTT, BMP #### [address] [address] Statistical Technician: Good Melendez MD #### ANICOT #### [facility] [address] [place], [place] [id number] Statistical Technician: Troy Link MD Platelet mean volume (Bld) [Entitic vol] 8.8 fL Normal 8.1-13.5 [facility] Comment on above: Performed By: #### C BC, PT, PTT, BMP #### [address] [address] Statistical Technician: Good Melendez MD #### ANICOT #### [facility] [address] [place] [address] Statistical Technician: Troy Link MD Platelets (Bld) [#/Vol] 263 10*3/uL Normal 138-453 [facility] Comment on above: Performed By: #### C BC, PT, PTT, BMP #### [address] [address] Statistical Technician: Good Melendez MD #### ANICOT #### [facility] [address] [place], [place] [id number] Statistical Technician: Troy Link MD RBC (Bld) [#/Vol] 4.04 10*6/uL Low 4.21-5.77 [facility] Comment on above: Performed By: #### C BC, PT, PTT, BMP #### [facility] [address] [place], [place] [id number] Statistical Technician: Good Melendez MD #### ANAPARNAT #### [facility] [address] [place], [place] [id number] Statistical Technician: Troy Link MD WBC (Bld) [#/Vol] 10.8 10*3/uL Normal 3.5-11.3 [facility] Comment on above: Performed By: #### C BC, PT, PTT, BMP #### [facility] [address] [place] [address] Statistical Technician: Good Melendez MD #### ANICOT #### [facility] [address] [place] [address] Statistical Technician: Troy Link MD Hematocrit (Bld) [Volume fraction] 39.5 % Low 40.7 - 50.3 % [facility] Hemoglobin.gastroint estinal spec 1 Ql (Stl) 12.2 g/dL Low 13.0 - 17.0 g/dL [facility] Interpretation and review of laboratory results Abnormal [facility] MCH (RBC) [Entitic mass] 30.2 pg 25.2 - 33.5 pg [facility] MCHC (RBC) [Mass/Vol] 30.9 g/dL 28.4 - 34.8 g/dL [facility] MCV (RBC) [Entitic vol] 97.8 fL 82.6 - 102.9 fL [facility] NRBC Automated 0.0 0.0 per 100 WBC [facility] Platelet distribution width (Bld) [Ratio] 13.9 % 11.8 - 14.4 % [facility] Platelet mean volume (Bld) [Entitic vol] 8.8 fL 8.1 - 13.5 fL [facility] Platelets (Bld) [#/Vol] 263 10*3/uL [facility] RBC (Bld) [#/Vol] 4.04 10*6/uL Low 4.21 - 5.7 7 m/uL [facility] WBC (Bld) [#/Vol] 10.8 10*3/uL [facility] Magnesiumon 05-25-2021 Magnesium [Mass/Vol] 1.9 mg/dL Normal 1.6-2.6 [facility] Comment on above: Performed By: #### C BC, PT, PTT, BMP #### [employer] [facility] [address] [place], [place] [id number] Statistical Technician: Good Melendez MD #### ANICOT #### [facility] [address] [place] [address] Statistical Technician: Troy Link MD Magnesium [Mass/Vol] 1.9 mg/dL 1.6 - 2 .6 mg/dL [facility] Surgical Pathologyon 022 Surgical Pathology (NOTE) -- [...] with no areas of granularity or masses. 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 Technician sections 1cs. tm Microscopic Description Sections of gastric wall show lamina propria without evidence of significant inflammation. There is no evidence of intestinal metaplasia or dysplasia. There is no evidence of organisms suspicious for Helicobacter with the routine CANDY stain. SURGICAL PATHOLOGY CONSULTATION Patient Name: SUKHDEEP SIMENTAL [facility] Rec: [id number] Path Number: [id number] [facility] ANATOMIC PATHOLOGY [address] [place] [phone] Normal [facility] Comment on above: Performed By: #### C BC, PT, PTT, BMP #### [employer] [facility] [address] [place], [place] [id number] Statistical Technician: Good Melendez MD #### ANICOT #### [facility] [address] [place] [address] Statistical Technician: Troy Link MD Basic Metabolic Panelon 04-27 Anion gap [Moles/Vol] 13 mmol/L 9 - 17 mmol/L [facility] Calcium [Mass/Vol] 9.1 mg/dL 8.6 - 10. 4 mg/dL [facility] Chloride [Moles/Vol] 102 mmol/L 98 - 10 7 mmol/L [facility] CO2 [Moles/Vol] 17 mmol/L Low 20 - 31 mmol/L [facility] Creatinine [Mass/Vol] 1.16 mg/dL 0.70 - 1.20 mg/dL [facility] GFR >60 >60 mL/min [employer] GFR Non- >60 >60 mL/min [facility] GFR/1.73 sq M.predicted MDRD (S/P/Bld) [Vol rate/Area] [facility] Comment on above: Average GFR for 50-5 9 years old: 93 mL/min/1.73sq m Chronic Kidney Disease: <60 mL/min/1.73sq m Kidney failure: <15 mL/min/1.73sq m eGFR calculated using average adult body mass. Additional eGFR calculator available at: http://www.ConforMIS/multiple_crcl_2012.htm Glucose [Mass/Vol] 203 mg/dL High 70 - 99 mg/dL [facility] Interpretation and review of laboratory results Abnormal [facility] Potassium [Moles/Vol] 4.2 mmol/L 3.7 - 5.3 mmol/L [facility] Sodium [Moles/Vol] 132 mmol/L Low 135 - 144 mmol/L [facility] Urea nitrogen (BldV) [Mass/Vol] 29 mg/dL High 6 - 20 mg/dL [facility] Basic Metabolic Profon 05-24 (cont.) Normal [facility] Comment on above: Result Comment: Aver age GFR for 50-59 years old: 93 mL/min/1.73sq m Chronic Kidney Disease: <60 mL/min/1.73sq m Kidney failure: <15 mL/min/1.73sq m eGFR calculated using average adult body mass. Additional eGFR calculator available at: http://www.[employer]/multiple_crcl_2012.htm Performed By: #### C BC, BMP #### [address] [address] Statistical Technician: Good Melendez MD Anion gap [Moles/Vol] 13 mmol/L Normal 9-17 [facility] Comment on above: Performed By: #### C BC, BMP #### [address] [address] Statistical Technician: Good Melendez MD Calcium [Mass/Vol] 9.1 mg/dL Normal 8.6-10.4 [facility] Comment on above: Performed By: #### C JASE, BMP #### [address] [address] Statistical Technician: Good Melendez MD Chloride [Moles/Vol] 102 mmol/L Normal 98-107 [facility] Comment on above: Performed By: #### C BC, BMP #### [address] [address] Statistical Technician: Good Melendez MD CO2 [Moles/Vol] 17 mmol/L Low 20-31 [facility] Comment on above: Performed By: #### C BC, BMP #### [address] [address] Statistical Technician: Good Melendez MD Creatinine [Mass/Vol] 1.16 mg/dL Normal 0.70-1.20 [facility] Comment on above: Performed By: #### C BC, BMP #### [address] [address] Statistical Technician: Good Melendez MD GFR, Amer >60 Normal >60 [facility] Comment on above: Performed By: #### C BC, BMP #### [facility] [address] [place] [address] Statistical Technician: Good Melendez MD GFR,non Amer >60 Normal >60 [facility] Comment on above: Performed By: #### C BC, BMP #### [facility] [address] [place] [address] Statistical Technician: Good Melendez MD Glucose [Mass/Vol] 203 mg/dL High 70-99 [facility] Comment on above: Performed By: #### C BC, BMP #### [facility] [address] [place] [address] Statistical Technician: Good Melendez MD Potassium [Moles/Vol] 4.2 mmol/L Normal 3.7-5.3 [facility] Comment on above: Performed By: #### C BC, BMP #### [facility] [address] [place] [address] Statistical Technician: Good Melendez MD Sodium [Moles/Vol] 132 mmol/L Low 135-144 [facility] Comment on above: Performed By: #### C BC, BMP #### [facility] [address] [place] [address] Statistical Technician: Good Melendez MD Urea nitrogen [Mass/Vol] 29 mg/dL High 6-20 [facility] Comment on above: Performed By: #### C BC, BMP #### [facility] [address] [place] [address] Statistical Technician: Good Melendez MD CBCon 05-24-2021 Erythrocyte distribution width (RBC) [Ratio] 14.0 % Normal 11.8-14.4 [facility] Comment on above: Performed By: #### C BC, BMP #### [facility] [address] [place] [address] Statistical Technician: Good Melendez MD Hematocrit (Bld) [Volume fraction] 41.0 % Normal 40.7-50.3 [facility] Comment on above: Performed By: #### C BC, BMP #### [address] [address] Statistical Technician: Good Melendez MD Hemoglobin (Bld) [Mass/Vol] 12.7 g/dL Low 13.0-17.0 [facility] Comment on above: Performed By: #### C BC, BMP #### [facility] [address] [place] [address] Statistical Technician: Good Melendez MD MCH (RBC) [Entitic mass] 29.5 pg Normal 25.2-33.5 [facility] Comment on above: Performed By: #### C JASE, BMP #### [address] [address] Statistical Technician: Good Melendez MD MCHC (RBC) [Mass/Vol] 31.0 g/dL Normal 28.4-34.8 [facility] Comment on above: Performed By: #### C JASE, BMP #### [address] [address] Statistical Technician: Good Melendez MD MCV (RBC) [Entitic vol] 95.3 fL Normal 82.6-102.9 [facility] Comment on above: Performed By: #### C BC, BMP #### [facility] [address] [place] [address] Statistical Technician: Good Melendez MD NRBC Automated 0.0 per 100 WBC Normal 0.0 [facility] Comment on above: Performed By: #### C BC, BMP #### [facility] [address] [place] [address] [phone] Statistical Technician: Good Melendez MD Platelet mean volume (Bld) [Entitic vol] 8.8 fL Normal 8.1-13.5 [facility] Comment on above: Performed By: #### C BC, BMP #### [facility] [address] [place] [address] Statistical Technician: Good Melendez MD Platelets (Bld) [#/Vol] 273 10*3/uL Normal 138-453 [facility] Comment on above: Performed By: #### C BC, BMP #### [facility] [address] [place] [address] Statistical Technician: Good Melendez MD RBC (Bld) [#/Vol] 4.30 10*6/uL Normal 4.21-5.77 [facility] Comment on above: Performed By: #### C JASE, BMP #### [employer] [address] [place] [address] Statistical Technician: Good Melendez MD WBC (Bld) [#/Vol] 9.6 10*3/uL Normal 3.5-11.3 [facility] Comment on above: Performed By: #### C BC, BMP #### [facility] [address] [place] [address] Statistical Technician: Good Melendez MD CBC without Diffon Hematocrit (Bld) [Volume fraction] 41.0 % 40.7 - 50.3 % [facility] Hemoglobin.gastroint estinal spec 1 Ql (Stl) 12.7 g/dL Low 13.0 - 17.0 g/dL [facility] Interpretation and review of laboratory results Abnormal [facility] MCH (RBC) [Entitic mass] 29.5 pg 25.2 - 33.5 pg [facility] MCHC (RBC) [Mass/Vol] 31.0 g/dL 28.4 - 34.8 g/dL [facility] MCV (RBC) [Entitic vol] 95.3 fL 82.6 - 102.9 fL [facility] NRBC Automated 0.0 0.0 per 100 WBC [facility] Platelet distribution width (Bld) [Ratio] 14.0 % 11.8 - 14.4 % [facility] Platelet mean volume (Bld) [Entitic vol] 8.8 fL 8.1 - 13.5 fL [facility] Platelets (Bld) [#/Vol] 273 10*3/uL [facility] RBC (Bld) [#/Vol] 4.30 10*6/uL 4.21 - 5.7 7 m/uL [facility] WBC (Bld) [#/Vol] 9.6 10*3/uL [facility] COVID-19, Rapidon 05-24-2021 SARS-CoV-2 (COVID-19) RNA MUKUL+probe Ql (Unsp spec) Not detected Not Detected [facility] Comment on above: Rapid NAAT: The specimen [...] management decisions. Fact sheet for Healthcare Providers: https://www.fda.gov/media/906195/download Fact sheet for Patients: https://www.fda.gov/media/824509/download Methodology: Isothermal Nucleic Acid Amplification Specimen Description .NASOPHARYNGEAL SWAB [facility] Calcium, Ionicon 05-24-2021 Calcium [Moles/Vol] 1.31 mmol/L Normal 1.13-1.33 [facility] Comment on above: Performed By: #### I OCSETH MG, BRITTANIE #### [facility] [place] [address] Statistical Technician: Good Melendez MD Calcium, Ionizedon Calcium [Moles/Vol] 1.31 mmol/L 1.13 - 1 .33 mmol/L [facility] Magnesiumon 05-24-2021 Magnesium [Mass/Vol] 2.0 mg/dL Normal 1.6-2.6 [facility] Comment on above: Performed By: #### C BC, PT, PTT, BMP #### [facility] [address] [place], [place] [id number] Statistical Technician: Good Melendez MD #### ANICOT #### [facility] [address] [place] [address] Statistical Technician: Troy Link MD Magnesium [Mass/Vol] 2.0 mg/dL 1.6 - 2 .6 mg/dL [facility] No Panel Informationon 05-24 [facility] POC Glucose Fingerstickon Glucose [Mass/Vol] 199 mg/dL High 75 - 110 mg/dL [facility] Interpretation and review of laboratory results Abnormal [facility] Glucose [Mass/Vol] 209 mg/dL High 75 - 110 mg/dL [facility] Interpretation and review of laboratory results Abnormal [facility] POCT Glucoseon 05-24-2021 Glucose [Mass/Vol] 150 mg/dL High 74 - 100 mg/dL [facility] Interpretation and review of laboratory results Abnormal [facility] POTASSIUM (POC)on 05-24-2021 Potassium [Moles/Vol] 3.9 mmol/L 3.5 - 4.5 mmol/L [facility] Phosphoruson 05-24-2021 Phosphate [Mass/Vol] 3.8 mg/dL 2.5 - 4 .5 mg/dL [facility] Phosphorus, Inorg.on 022 Phosphorus, Inorg. 3.8 mg/dL Normal 2.5-4.5 [facility] Comment on above: Performed By: #### C BC, PT, PTT, BMP #### [facility] [address] [place], [place] [id number] Statistical Technician: Good Melendez MD #### ANICOT #### [facility] [address] [place] [address] Statistical Technician: Troy Link MD [id number] 05-24-2021 SARS-CoV-2 (COVID-19) RNA MUKUL+probe Ql (Unsp spec) Not detected Normal NOTDET [facility] Comment on above: Result Comment: Rapid [...] management decisions. Fact sheet for Healthcare Providers: https://www.fda.gov/media/243727/download Fact sheet for Patients: https://www.fda.gov/media/547211/download Methodology: Isothermal Nucleic Acid Amplification Performed By: #### C OVRB #### [facility] [address] [place] [address] Statistical Technician: Good Melendez MD Nicotineon 05-11-2021 3-SS-Ysyhmckc <2 Normal [facility] Comment on above: Performed By: #### C BC, PT, PTT, BMP #### [facility] [address] [place] [address] Statistical Technician: Good Melendez MD #### ANICOT #### [facility] [address] [place] [address] Statistical Technician: Troy Link MD Cotinine <2 Normal [facility] Comment on above: Performed By: #### C BC, PT, PTT, BMP #### [facility] [address] [place] [address] Statistical Technician: Good Melendez MD #### ANICOT #### [facility] [address] [place] [address] Statistical Technician: Troy Link MD Nicotine <2 Normal [facility] Comment on above: Result Comment: (NOT [...] developed and its performance characteristics determined by [employer]. It has not been cleared or approved by the [place] Food and Drug Administration. This test was performed in a CLIA certified laboratory and is intended for clinical purposes. Performed By: [facility] [address] [place] [address] Brush Cleaner: Ayse Diaz MD Performed By: #### C BC, PT, PTT, BMP #### [facility] [place] [address] Statistical Technician: Good Melendez MD #### ANICOT #### [facility] [address] [place] [address] Statistical Technician: Troy Link MD Nicotine, Bloodon 05-11-2021 3-CH-Snbbzodo <2 ng/mL [facility] h Cotinine <2 ng/mL [facility] Nicotine <2 ng/mL [facility] Comment on above: (NOTE) Consistent with abstinence [...] developed and its performance characteristics determined by [employer]. It has not been cleared or approved by the US Food and Drug Administration. This test was performed in a CLIA certified laboratory and is intended for clinical purposes. Performed By: [facility] [address] [place] [address] Brush Cleaner: Ayse Diaz MD [facility] EKG 12 LeadOrdered By: Unkno wn Result on 05-09-2021 Atrial Rate 122 BPM [facility] [place] 55 degrees [facility] P-R Interval 164 ms [facility] Q-T Interval 298 ms [facility] QRS Duration 84 ms [facility] QTc Calculation (Bazett) 424 ms [facility] R [place] -11 degrees [facility] T [place] 42 degrees [facility] Ventricular Rate 122 BPM [facility] EKG 12 Leadon 05-09-2021 Sinus tachycardia Otherwise normal ECG No previous ECGs available [facility] ST[facility] MUSE Result, Unknown Provider - 05/09/2021 Sinus tachycardia Otherwise normal ECG No previous ECGs available [facility] Work Phone: XR CHEST (2 VW)on 05-09-2021 [...] Singh Calero MD 05/09/21 Final result Normal [facility] No acute airspace disease identified. [facility] EXAMINATION: TWO XRAY VIEWS OF THE [...] effusion. No acute osseous abnormality is identified. [facility] Singh Calero MD - 05/09/2021 EXAMINATION: [...] identified. IMPRESSION: No acute airspace disease identified. [facility] Work Phone: XR CHEST (2 VW)Ordered By: Carlos Calero on 05-09-2021 [facility] Work Phone: APTTon 05-08-2021 aPTT Coag (Bld) [Time] 23.1 s Normal 20.5-30.5 [facility] Comment on above: Result Comment: IV Heparin Therapy Range: 48.6-77.8 Performed By: #### C BC, PT, PTT, BMP #### [facility] [address] [place], [place] [id number] Statistical Technician: Good Melendez MD #### ANICOT #### [facility] [address] [place] [address] Statistical Technician: Troy Link MD aPTT Coag (Bld) [Time] 23.1 s [facility] Comment on above: IV Heparin Therapy Range: 48.6-77.8 Basic Metabolic Panelon 03- Anion gap [Moles/Vol] 15 mmol/L 9 - 17 mmol/L [facility] Calcium [Mass/Vol] 9.4 mg/dL 8.6 - 10. 4 mg/dL [facility] Chloride [Moles/Vol] 103 mmol/L 98 - 10 7 mmol/L [facility] CO2 [Moles/Vol] 19 mmol/L Low 20 - 31 mmol/L [facility] Creatinine [Mass/Vol] 1.59 mg/dL High 0.70 - 1.20 mg/dL [facility] GFR 55 mL/min Low >60 [facility] GFR Non- 45 mL/min Low >60 [facility] GFR/1.73 sq M.predicted MDRD (S/P/Bld) [Vol rate/Area] [facility] Comment on above: Average GFR for 50-5 9 years old: 93 mL/min/1.73sq m Chronic Kidney Disease: <60 mL/min/1.73sq m Kidney failure: <15 mL/min/1.73sq m eGFR calculated using average adult body mass. Additional eGFR calculator available at: http://www.ConforMIS/RentMama_crcl_2012.htm Glucose [Mass/Vol] 141 mg/dL High 70 - 99 mg/dL [facility] Interpretation and review of laboratory results Abnormal [facility] Potassium [Moles/Vol] 5.3 mmol/L 3.7 - 5.3 mmol/L [facility] Sodium [Moles/Vol] 137 mmol/L 135 - 144 mmol/L [facility] Urea nitrogen (BldV) [Mass/Vol] 37 mg/dL High 6 - 20 mg/dL [facility] Basic Metabolic Profon 05-08 (cont.) Normal [facility] Comment on above: Result Comment: Aver age GFR for 50-59 years old: 93 mL/min/1.73sq m Chronic Kidney Disease: <60 mL/min/1.73sq m Kidney failure: <15 mL/min/1.73sq m eGFR calculated using average adult body mass. Additional eGFR calculator available at: http://www.ConforMIS/multiple_crcl_2012.htm Performed By: #### C BC, PT, PTT, BMP #### [facility] [address] [place] [address] Statistical Technician: Good Melendez MD #### ANICOT #### [facility] [address] [place], [place] [id number] Statistical Technician: Troy Link MD Anion gap [Moles/Vol] 15 mmol/L Normal 9-17 [facility] Comment on above: Performed By: #### C BC, PT, PTT, BMP #### [address] [address] Statistical Technician: Good Melendez MD #### ANICOT #### [facility] [address] [place], [place] [id number] Statistical Technician: Troy Link MD Calcium [Mass/Vol] 9.4 mg/dL Normal 8.6-10.4 [facility] Comment on above: Performed By: #### C BC, PT, PTT, BMP #### [address] [address] Statistical Technician: Good Melendez MD #### ANICOT #### [facility] [address] [place] [address] Statistical Technician: Troy Link MD Chloride [Moles/Vol] 103 mmol/L Normal 98-107 [facility] Comment on above: Performed By: #### C BC, PT, PTT, BMP #### [address] [address] Statistical Technician: Good Melendez MD #### ANICOT #### [facility] [address] [place] [address] Statistical Technician: Troy Link MD CO2 [Moles/Vol] 19 mmol/L Low 20-31 [facility] Comment on above: Performed By: #### C BC, PT, PTT, BMP #### [facility] [address] [place] [address] Statistical Technician: Good Melendez MD #### ANICOT #### [facility] [address] [place], [place] [id number] Statistical Technician: Troy Link MD Creatinine [Mass/Vol] 1.59 mg/dL High 0.70-1.20 [facility] Comment on above: Performed By: #### C BC, PT, PTT, BMP #### [facility] [address] [place] [address] Statistical Technician: Good Melendez MD #### ANICOT #### [facility] [address] [place] [address] Statistical Technician: Troy Link MD GFR, Amer 55 mL/min Low >60 [facility] Comment on above: Performed By: #### C BC, PT, PTT, BMP #### [facility] [address] [place] [address] Statistical Technician: Good Melendez MD #### ANICOT #### [facility] [address] [place], [place] [id number] Statistical Technician: Troy Link MD GFR,non Amer 45 mL/min Low >60 [facility] Comment on above: Performed By: #### C BC, PT, PTT, BMP #### [facility] [address] [place] [address] Statistical Technician: Good Melendez MD #### ANICOT #### [facility] [address] [place] [address] Statistical Technician: Troy Link MD Glucose [Mass/Vol] 141 mg/dL High 70-99 [facility] Comment on above: Performed By: #### C BC, PT, PTT, BMP #### [facility] [address] [place], [place] [address], [place] [address] Statistical Technician: Good Melendez MD #### ANICOT #### [facility] [address] [place] [address] Statistical Technician: Troy Link MD Potassium [Moles/Vol] 5.3 mmol/L Normal 3.7-5.3 [facility] Comment on above: Performed By: #### C BC, PT, PTT, BMP #### [address] [id number] Statistical Technician: Good Melendez MD #### ANICOT #### [address] [address] Statistical Technician: Troy Link MD Sodium [Moles/Vol] 137 mmol/L Normal 135-144 [facility] Comment on above: Performed By: #### C BC, PT, PTT, BMP #### [address] [address] Statistical Technician: Good Melendez MD #### ANICOT #### [address] [address] Statistical Technician: Troy Link MD Urea nitrogen [Mass/Vol] 37 mg/dL High 6-20 [facility] Comment on above: Performed By: #### C BC, PT, PTT, BMP #### [address] [address] Statistical Technician: Good Melendez MD #### ANICOT #### [facility] [address] [place] [address] Statistical Technician: Troy Link MD CBCon 05-08-2021 Erythrocyte distribution width (RBC) [Ratio] 14.1 % Normal 11.8-14.4 [facility] Comment on above: Performed By: #### C BC, PT, PTT, BMP #### [address] [place] [address] Statistical Technician: Godo Melendez MD #### ANICOT #### [facility] [address] [place] [address] Statistical Technician: Troy Link MD Hematocrit (Bld) [Volume fraction] 43.6 % Normal 40.7-50.3 [facility] Comment on above: Performed By: #### C BC, PT, PTT, BMP #### [facility] [address] [place] [address] Statistical Technician: Good Melendez MD #### ANICOT #### [facility] [address] [place] [address] Statistical Technician: Troy Link MD Hemoglobin (Bld) [Mass/Vol] 13.5 g/dL Normal 13.0-17.0 [facility] Comment on above: Performed By: #### C BC, PT, PTT, BMP #### [address] [address] Statistical Technician: Good Melendez MD #### ANICOT #### [facility] [address] [place] [address] Statistical Technician: Troy Link MD MCH (RBC) [Entitic mass] 29.4 pg Normal 25.2-33.5 [facility] Comment on above: Performed By: #### C BC, PT, PTT, BMP #### [address] [address] Statistical Technician: Good Melendez MD #### ANICOT #### [facility] [address] [place] [address] Statistical Technician: Troy Link MD MCHC (RBC) [Mass/Vol] 31.0 g/dL Normal 28.4-34.8 [facility] Comment on above: Performed By: #### C BC, PT, PTT, BMP #### [facility] [address] [place] [address] Statistical Technician: Good Melendez MD #### ANICOT #### [facility] [address] [place], [place] [id number] Statistical Technician: Troy Link MD MCV (RBC) [Entitic vol] 95.0 fL Normal 82.6-102.9 [facility] Comment on above: Performed By: #### C BC, PT, PTT, BMP #### [address] [id number] Statistical Technician: Good Melendez MD #### ANICOT #### [facility] [address] [place] [address] Statistical Technician: Troy Link MD NRBC Automated 0.0 per 100 WBC Normal 0.0 [facility] Comment on above: Performed By: #### C BC, PT, PTT, BMP #### [address] [address] Statistical Technician: Good Melendez MD #### ANICOT #### [facility] [address] [place] [address] Statistical Technician: Troy Link MD Platelet mean volume (Bld) [Entitic vol] 8.7 fL Normal 8.1-13.5 [facility] Comment on above: Performed By: #### C BC, PT, PTT, BMP #### [address] [address] Statistical Technician: Good Melendez MD #### ANICOT #### [facility] [address] [place] [address] Statistical Technician: Troy Link MD Platelets (Bld) [#/Vol] 279 10*3/uL Normal 138-453 [facility] Comment on above: Performed By: #### C BC, PT, PTT, BMP #### [facility] [address] [place], [place] [address] Statistical Technician: Good Melendez MD #### ANICOT #### [facility] [address] [place], [place] [id number] Statistical Technician: Troy Link MD RBC (Bld) [#/Vol] 4.59 10*6/uL Normal 4.21-5.77 [facility] Comment on above: Performed By: #### C BC, PT, PTT, BMP #### [facility] [address] [place] [id number] Statistical Technician: Good Melendez MD #### ANICOT #### [facility] [address] [place], [place] [id number] Statistical Technician: Troy Link MD WBC (Bld) [#/Vol] 8.9 10*3/uL Normal 3.5-11.3 [facility] Comment on above: Performed By: #### C BC, PT, PTT, BMP #### [facility] [address] [place] [address] [id number] Statistical Technician: Good Melendez MD #### ANICOT #### [facility] [address] [place], [place] [id number] Statistical Technician: Troy Link MD Hematocrit (Bld) [Volume fraction] 43.6 % 40.7 - 50.3 % [facility] Hemoglobin.gastroint estinal spec 1 Ql (Stl) 13.5 g/dL 13.0 - 17.0 g/dL [facility] MCH (RBC) [Entitic mass] 29.4 pg 25.2 - 33.5 pg [facility] MCHC (RBC) [Mass/Vol] 31.0 g/dL 28.4 - 34.8 g/dL [facility] MCV (RBC) [Entitic vol] 95.0 fL 82.6 - 102.9 fL [facility] NRBC Automated 0.0 0.0 per 100 WBC [facility] Platelet distribution width (Bld) [Ratio] 14.1 % 11.8 - 14.4 % [facility] Platelet mean volume (Bld) [Entitic vol] 8.7 fL 8.1 - 13.5 fL [facility] Platelets (Bld) [#/Vol] 279 10*3/uL [facility] RBC (Bld) [#/Vol] 4.59 10*6/uL 4.21 - 5.7 7 m/uL [facility] WBC (Bld) [#/Vol] 8.9 10*3/uL [facility] No Panel Informationon 05-08 [facility] PTon 05-08-2021 INR Coag (PPP) [Relative time] 1.1 {INR} Normal [facility] Comment on above: Result Comment: Therapeutic Range: Moderate Anticoagulant Intensity: INR = 2.0-3.0 High Anticoagulant Intensity: INR = 2.5-3.5 Performed By: #### C BC, PT, PTT, BMP #### [facility] [address] [place] [address] Statistical Technician: Good Melendez MD #### ANICOT #### [facility] [address] [place] [address] Statistical Technician: Troy Link MD PT Coag (PPP) [Time] 11.2 s Normal 9.1-12.3 [facility] Comment on above: Performed By: #### C BC, PT, PTT, BMP #### [facility] [address] [place] [address] Statistical Technician: Good Melendez MD #### ANICOT #### [facility] [address] [place] [address] Statistical Technician: Troy Link MD Protime-INRon 05-08-2021 INR Coag (Bld) [Relative time] 1.1 {INR} [facility] Comment on above: Therapeutic Range: Moderate Anticoagulant Intensity: INR = 2.0-3.0 High Anticoagulant Intensity: INR = 2.5-3.5 PT Coag (PPP) [Time] 11.2 s [facility] XR CHEST (2 VW)on 05-08-2021 Radiology Study observation (narrative) [facility] Work Phone: CT LUMBAR SPINE W CONTRASTon 02-28-2021 CT LUMBAR SPINE W CONTRAST [facility] Department of Radiology [address] [place] [address] ======== Patient Name: SUKHDEEP SIMENTAL : 1965 Sex: M Age: Race: White Pt. Location: Patient Status: D Ordered Date: 02/13/2021 9:35:00 AM Completed Date: 02/28/2021 02:00 PM Requesting Provider: JASON MILLER Attending Provider: JASON MILLER Report Copy To: Signs & Symptoms: Z98.1 Arthrodesis status I10 History: [place] Comments: Exam: CT LUMBAR SPINE W CONTRAST [...] above Electronically signed: Petar Mg. Transcribed by: [email or web address], User Resident: Electronically Signed by: PETAR MG @ 03/01/2021 02:21 PM Normal [facility] LUMBAR MYELOGRAMon 2 LUMBAR MYELOGRAM [facility] Department of Radiology [address] [place] [phone] ======== Patient Name: SUKHDEEP SIMENTAL : 1965 Sex: M Age: Race: White Pt. Location: 84 Patient Status: O Ordered Date: 02/13/2021 9:35:00 AM Completed Date: 02/28/2021 02:06 PM Requesting Provider: JASON MILLER Attending Provider: JASON MILLER Report Copy To: Signs & Symptoms: Z98.1 Arthrodesis status I10 History: [phone] Is patient on thinners? Eliquis hold 48hrs. 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 Consent was obtained. Timeout: [place] protocol timeout verification performed. PROCEDURE: Estimated blood [...] report. Electronically signed: Petar Mg. Transcribed by: [email or web address], User Resident: OCHOA HONG Electronically Signed by: PETAR MG @ 02/28/2021 03:13 PM I personally read this/these film(s) with this resident Normal [facility] LUMBAR SPINE 4 OR 5 [facility] LUMBAR SPINE 4 OR 5 [facility] Department of Radiology [address] [place] [phone] ======== Patient Name: SUKHDEEP SIMENTAL : 1965 Sex: M Age: Race: White Pt. Location: Patient Status: D Ordered Date: 02/01/2021 1:05:00 PM Completed Date: 02/01/2021 01:12 PM Requesting Provider: JASON MILLER Attending Provider: JASON MILLER Report Copy To: Signs & Symptoms: M54.16 Radiculopathy, lumbar region I10 History: [place] Comments: Views (X-RAY, LUMBAR SPINE): AP, Lateral, [...] Osteopenia. Electronically signed: Ahsan Farmer. Transcribed by: [email or web address], User Resident: Electronically Signed by: AHSAN FARMER @ 02/02/2021 10:14 AM Normal [facility] Comment on above: Order Comment: Views (X-RAY, LUMBAR SPINE): AP, Lateral, L5-S1 Spot, Flexion, Extension C REACTIVE PROTEINon 021 CRP [Mass/Vol] 9.6 mg/L High 0.0-7.0 [facility] Comment on above: Performed By: #### 6 1405 #### [facility] [address] [place] [address], [place] CBC W/DIFFon 12-15-2020 ABS IMM GRANS 0.1 10*3/uL Normal 0.0-0.2 [facility] Comment on above: Performed By: #### 5 6505, 88786 #### [facility] [address] [place] [address], [place] ABS NEUTROPHILS 6.1 10*3/uL Normal 1.6-7.6 [facility] Comment on above: Performed By: #### 5 6505, 45394 #### [facility] [address] [place] [address], [place] Basophils (Bld) [#/Vol] 0.1 10*3/uL Normal 0.0-0.2 [facility] Comment on above: Performed By: #### 5 6505, 58428 #### [facility] [address] [place] [address], [place] Basophils/100 WBC (Bld) 0.8 % Normal 0.0-1.0 [facility] Comment on above: Performed By: #### 5 6505, 33418 #### [facility] [address] [place] [address], [place] Eosinophils (Bld) [#/Vol] 0.4 10*3/uL Normal 0.0-0.5 [facility] Comment on above: Performed By: #### 5 6505, 19537 #### [facility] [address] [place] [address], [place] Eosinophils/100 WBC (Bld) 4.1 % Normal 0.0-6.0 [facility] Comment on above: Performed By: #### 5 6505, 19796 #### [facility] [address] [place] [address], [place] Erythrocyte distribution width (RBC) [Ratio] 12.6 % Normal 11.5-15.0 [facility] Comment on above: Performed By: #### 5 6505, 44225 #### [facility] [address] [place] [address], [place] Hematocrit (Bld) [Volume fraction] 40.2 % Normal 39.0-50.0 [facility] Comment on above: Performed By: #### 5 6505, 63872 #### [facility] [address] [place] [address], [place] Hemoglobin (Bld) [Mass/Vol] 12.6 g/dL Low 13.0-17.0 [facility] Comment on above: Performed By: #### 5 6505, 06549 #### [facility] [address] [place] [address], [place] IMMATURE GRANS 0.7 % Normal 0.0-1.0 [facility] Comment on above: Performed By: #### 5 6505, 10080 #### [facility] [address] [facility] [place] [address], [place] Lymphocytes (Bld) [#/Vol] 2.0 10*3/uL Normal 1.2-4.0 [facility] Comment on above: Performed By: #### 5 6505, 15219 #### [facility] [address] [facility] [place] [address], [place] Lymphocytes/100 WBC (Bld) 20.6 % Normal 20.0-45.0 [facility] Comment on above: Performed By: #### 5 6505, 62408 #### [facility] [address] [facility] [place] [address], [place] MCH (RBC) [Entitic mass] 30.0 pg Normal 27.0-33.0 [facility] Comment on above: Performed By: #### 5 6505, 40238 #### [facility] [address] [facility] [place] [address], [place] MCHC (RBC) [Mass/Vol] 31.3 g/dL Low 32.0-35.0 [facility] Comment on above: Performed By: #### 5 6505, 75546 #### [facility] [address] [place] [address], [place] MCV (RBC) [Entitic vol] 95.7 fL Normal 82.0-98.0 [facility] Comment on above: Performed By: #### 5 6505, 22470 #### [facility] [address] [place] [id number], [place] Monocytes (Bld) [#/Vol] 1.2 10*3/uL High 0.1-1.0 [facility] Comment on above: Performed By: #### 5 6505, 90887 #### [facility] [address] [place] [id number], [place] MONOS 11.9 % Normal 5.0-12.0 [facility] Comment on above: Performed By: #### 5 6505, 78624 #### [facility] [address] [place] [address], [place] Neutrophils/100 WBC (Bld) 61.9 % Normal 40.0-72.0 [facility] Comment on above: Performed By: #### 5 6505, 61074 #### [facility] [address] [facility] [place] [address], [place] Nucleated RBC/100 WBC (Bld) [Ratio] 0 % Normal 0-0 [facility] Comment on above: Performed By: #### 5 6505, 01920 #### [facility] [address] [place] [id number], [place] PLAT CNT 335 10*3/uL Normal 150-400 [facility] Comment on above: Performed By: #### 5 6505, 21857 #### [facility] [address] [place] [address], [place] RBC (Bld) [#/Vol] 4.20 10*6/uL Normal 4.20-5.70 [facility] Comment on above: Performed By: #### 5 6505, 28011 #### [facility] [address] WBC (Bld) [#/Vol] 9.86 10*3/uL Normal 4.00-10.60 [facility] Comment on above: Performed By: #### 5 6506, [address] #### [address] KNEE RIGHT 4 [facility] 1 KNEE RIGHT 4 [facility] Department of Radiology [address] [place] [phone] ======== Patient Name: SUKHDEEP SIMENTAL : 1965 Sex: M Age: Race: White Pt. Location: OUTP Patient Status: D Ordered Date: 12/15/2020 12:25:00 PM Completed Date: 12/15/2020 12:35 PM Requesting Provider: ROBBI PEPE Attending Provider: ROBBI PEPE Report Copy To: Signs & Symptoms: L03.115 cellulitis of rt lower limb History: Comments: evaluate Exam: KNEE RIGHT 4 [facility] ======== KNEE RIGHT 4 [facility] 12/15/2020 12:35 PM CLINICAL INDICATIONS: L03.115 cellulitis [...] report. Electronically signed: Layo Jimenes. Transcribed by: [email or web address], User Resident: LAYO CORDERO Electronically Signed by: LAYO JIMENES @ 12/16/2020 09:18 AM I personally read this/these film(s) with this resident Normal [facility] Comment on above: Order Comment: evalu ate SEDIMENTATION RATEon 021 SED RATE 77 mm/hr High 0-10 [facility] Comment on above: Performed By: #### 5 [id number], [id number] #### [facility] [address] COVID-19 Positive/Negativeon 05-05-2020 COVID-19 Positive/Negative Negative Negative [facility] Comment on above: Reference: NegativeT esting for SARS-CoV-2 by RT-PCRThis test was developed and its performance characteristics determined by [employer] ([employer] and validated at the [facility]. This test has not been FDA cleared [...] among non-blacks MDRD (S/P/Bld) [Vol rate/Area] mL/min/{1.73_m2} [facility] Otheron 05-05-2020 GFR/1.73 sq M.predicted MDRD (S/P/Bld) [Vol rate/Area] mL/min/{1.73_m2} [facility] Comment on above: GFR estimated refere nce range: According to KDOQI guidelines, <60 ml/min/1.73m2 is sufficient to diagnose a patient with chronic kidney disease. Pharmacy Creatinine Clearance (Chem N/A [facility] Coronavirus 2019 PCR Interp N/A [facility] Serum or plasma calcium yeni urement (mass/volume)on 05-05-2020 Calcium [Mass/Vol] 8.6 mg/dL 8.2-10.2 [facility] Serum or plasma chloride xi surement (moles/volume)on 05-05-2020 Chloride [Moles/Vol] 104 mmol/L 95-114 [facility] Serum or plasma creatinine m easurement with calculation of estimated glomerular filtron 05-05-2020 Creatinine [Mass/Vol] 1.14 mg/dL 0.64-1.27 [facility] Serum or plasma glucose yeni urement (mass/volume)on 05-05-2020 Glucose [Mass/Vol] 178 mg/dL 70-100 [facility] Comment on above: ADA recommended refe rence rangeRandom Glucose Reference Range is dependent on time and content of last meal. Glucose of more than 200 mg/dL in a nonstressed, ambulatory subject supports the diagnosis of Diabetes Mellitus. Serum or plasma potassium me asurement (moles/volume)on 05-05-2020 Potassium [Moles/Vol] 4.0 mmol/L 3.5-5.1 [facility] Serum or plasma sodium measu rement (moles/volume)on 05-05-2020 Sodium [Moles/Vol] 141 mmol/L 136-146 [facility] Serum or plasma total carbon dioxide measurement (moles/volume)on 05-05-2020 CO2 [Moles/Vol] 27.4 mmol/L 22.0-30.0 [facility] Serum or plasma urea nitroge n measurement (mass/volume)on 05-05-2020 Urea nitrogen [Mass/Vol] 18 mg/dL 9-23 [facility] .eGFRon 06-10-2019 eGFR AA >60 Normal >=60 [facility] Comment on above: Result Comment: Resu lt = 0-14.9 mL/min/1.73 m2 Kidney failure or Dialysis Result = 15-29 mL/min/1.73 m2 Severe decrease in GFR Result = 30-59 mL/min/1.73 m2 Moderate decrease in GFR Result >= 60 mL/min/1.73 m2 Normal or increased GFR Performed By: #### E GFR #### [address] [address] eGFR Non-AA >60 Normal >=60 [facility] Comment on above: Result Comment: [...] dosing. Performed By: #### E GFR #### [address] [address] Basic Metabolic Profileon Anion gap [Moles/Vol] 15 mmol/L Normal 7-17 [facility] Comment on above: Performed By: #### C [id number] #### [address] [address] Calcium [Mass/Vol] 9.8 mg/dL Normal 8.5-10.3 [facility] Comment on above: Performed By: #### C [id number] #### [address] [address] Chloride [Moles/Vol] 103 mmol/L Normal 98-110 [facility] Comment on above: Performed By: #### C [id number] #### [address] [address] CO2 [Moles/Vol] 27 mmol/L Normal 22-32 [facility] Comment on above: Performed By: #### C [id number] #### [address] [address] Creatinine [Mass/Vol] 0.98 mg/dL Normal 0.61-1.24 [facility] Comment on above: Performed By: #### C [id number] #### [address] [address] Glucose [Mass/Vol] 198 mg/dL High 70-99 [facility] Comment on above: Performed By: #### C [id number] #### [address] [address] Potassium [Moles/Vol] 4.0 mmol/L Normal 3.4-4.8 [facility] Comment on above: Performed By: #### C [id number] #### [address] [address] Sodium [Moles/Vol] 141 mmol/L Normal 133-142 [facility] Comment on above: Performed By: #### C [id number] #### [address] [address] Urea nitrogen [Mass/Vol] 18 mg/dL Normal 8-26 [facility] Comment on above: Performed By: #### C [id number] #### [address] [address] Urea nitrogen/Creatinine [Mass ratio] 18.4 mg/mg Normal 10.0-20.0 [facility] Comment on above: Performed By: #### C [id number] #### [address] [address] CBCon 06-10-2019 Erythrocyte distribution width (RBC) [Ratio] 13.0 % Normal 11.6-14.8 [facility] Comment on above: Performed By: #### C BCI #### [address] [address] Hematocrit (Bld) [Volume fraction] 46.2 % Normal 41.0-53.0 [facility] Comment on above: Performed By: #### C BCI #### [address] [address] Hemoglobin (Bld) [Mass/Vol] 16.2 g/dL Normal 13.5-17.5 [facility] Comment on above: Performed By: #### C BCI #### [address] [address] MCH (RBC) [Entitic mass] 32.1 pg Normal 27.0-35.0 [facility] Comment on above: Performed By: #### C BCI #### [address] [address] MCHC (RBC) [Mass/Vol] 35.0 % Normal 31.0-37.0 [facility] Comment on above: Performed By: #### C BCI #### [address] [address] MCV (RBC) [Entitic vol] 91.6 fL Normal 80.0-100.0 [facility] Comment on above: Performed By: #### C BCI #### [address] [address] Platelet mean volume (Bld) [Entitic vol] 7.5 fL Normal 6.7-10.6 [facility] Comment on above: Performed By: #### C BCI #### [address] [address] Platelets (Bld) [#/Vol] 263 x10*3/mcL Normal 150-350 [facility] Comment on above: Performed By: #### C BCI #### [address] [address] RBC (Bld) [#/Vol] 5.04 x10*6/mcL Normal 4.30-5.80 [facility] Comment on above: Performed By: #### C BCI #### [address] [address] WBC (Bld) [#/Vol] 9.7 x10*3/mcL Normal 4.5-11.0 [facility] Comment on above: Performed By: #### C BCI #### [address] [address] Hgb A1con 06-10-2019 HbA1c (Bld) [Mass fraction] 134 mg/dL High 68-114 [facility] Comment on above: Result Comment: Math ematical Calc approx. The mean gluc equivalency of A1c Performed By: #### H BA1C #### [address] [address] HbA1c (Bld) [Mass fraction] 6.3 % A1c High 4.0-5.6 [facility] Comment on above: Result Comment: Refe rence Range: 4.0 - 5.6 % Normal 5.7 - 6.4 % Pre-Diabetes > 6.5 % Diabetes Performed By: #### H BA1C #### [address] [address] MRSA, PCRon 06-10-2019 INR Coag (Bld) [Relative time] Negative Normal [facility] Comment on above: Result Comment: The Pure life renal Xpert MRSA Assay is a qualitative in [...] clinician. Performed By: #### M RSAPC #### [address] [address] PTon 06-10-2019 INR Coag (PPP) [Relative time] 1.0 {INR} Normal <=3.5 [facility] Comment on above: Result Comment: INR has no normal range. INR Therapeutic range is: 2.0-3.0 (AF, CVA, TIAs, DVT prophylaxis, acute DVT) 2.5-3.5 ([facility] heart valves, recurrent thrombosis/emboli) Performed By: #### P TINR #### [address] [address] PT Coag (PPP) [Time] 11.9 s Normal 8.9-11.9 [facility] Comment on above: Performed By: #### P TINR #### [address] [address] PTTon 06-10-2019 aPTT Coag (Bld) [Time] 23.0 s Normal 19.2-27.8 [facility] Comment on above: Performed By: #### P TT #### [address] [address] XR Chest 2 Viewson 0 XR Chest [...] Electronically Signed in Other Vendor System) Normal [facility] XR LUMBAR SPINE (2-3 VIEWS)o n 04-16-2019 [...] Juwan Kumar MD 04/16/19 Final result Normal [facility] Limited range of motion without evidence of instability. Multilevel disc degeneration. [place], [place] EXAMINATION: 2 XRAY VIEWS OF THE [...] lower lumbar spine. Spinous processes appear intact. [facility] Jos[facility]at[facility] Incoming Radiant Results From [employer] - 04/16/2019 11:16 AM EST EXAMINATION: 2 [...] without evidence of instability. Multilevel disc degeneration. [facility] [place] [facility] LUMBAR SPINE WO CONTRASTo n 04-11-2019 [...] Ahsan Guidry MD 04/11/19 Final result Normal [facility] XR PELVIS (1-2 VIEWS)on 03-28 XR [...] Ahsan Guidry MD 04/11/19 Final result Normal [facility] No acute findings. [employer] Phone: EXAMINATION: ONE XRA Y VIEW OF THE PELVIS 04/11/2019 1:24 pm COMPARISON: None. HISTORY: ORDERING SYSTEM PROVIDED HISTORY: fall right buttock pain TECHNOLOGIST PROVIDED HISTORY: fall right buttock pain Reason for Exam: fall buttocks pain Acuity: Acute Type of Exam: Initial FINDINGS: No acute fracture. No widening of the sacroiliac joints. Degenerative changes within the lower lumbar spine. Mild bilateral hip osteoarthritis. [employer] Phone: Josafat, [employer] Incoming Radiant Results From [employer] - 04/11/2019 2:02 PM EST EXAMINATION: ONE [...] bilateral hip osteoarthritis. IMPRESSION: No acute findings. [employer] Work Phone: Vital Signs Date Time Vital Sign Value Performing Clinician Facility 02-13-2024 11:22-0500 Body mass index (BMI) [Ratio] 38.99 kg/m2 Ahsan Nienberg PA Work Phone: [facility] 02-13-2024 11:22-0500 Body weight 119.75 kg Ahsan Nienberg PA Work Phone: [facility] 02-13-2024 11:22-0500 Diastolic blood pressure 100 mm[Hg] Ahsan Nienberg PA Work Phone: [facility] 02-13-2024 11:22-0500 Heart rate 92 /min Ahsan Nienberg PA Work Phone: [facility] 02-13-2024 11:22-0500 Respiratory rate 18 /min Ahsan Nienberg PA Work Phone: [facility] 02-13-2024 11:22-0500 Systolic blood pressure 150 mm[Hg] Ahsan Nienberg PA Work Phone: [facility] 12-05-2023 10:05-0400 Body height 175.3 cm Ahsan Nienberg PA Work Phone: [facility] 12-05-2023 10:05-0400 Body mass index (BMI) [Ratio] 39.28 kg/m2 Ahsan Nienberg PA Work Phone: [facility] 12-05-2023 10:05-0400 Body weight 120.66 kg Ahsan Nienberg PA Work Phone: [facility] 12-05-2023 10:05-0400 Diastolic blood pressure 90 mm[Hg] Ahsan Nienberg PA Work Phone: [facility] 12-05-2023 10:05-0400 Heart rate 91 /min Ahsan Nienberg PA Work Phone: [facility] 12-05-2023 10:05-0400 Respiratory rate 16 /min Ahsan Flynn PA Work Phone: [facility] 12-05-2023 10:05-0400 SaO2% (BldA) [Mass fraction] 95 % Ahsan NOVAK Work Phone: [facility] 12-05-2023 10:05-0400 Systolic blood pressure 131 mm[Hg] Ahsan NOVAK Work Phone: [facility] 11-07-2023 11:09-0400 Body height 175.26 cm [facility] 11-07-2023 11:09-0400 Body mass index (BMI) [Ratio] 39 kg/m2 [facility] 11-07-2023 11:09-0400 Body temperature 97.4 [degF] [facility] 11-07-2023 11:09-0400 Body weight 119.86 kg [facility] 11-07-2023 11:09-0400 Diastolic blood pressure 85 mm[Hg] [facility] 11-07-2023 11:09-0400 Heart rate 88 /min [facility] 11-07-2023 11:09-0400 Respiratory rate 18 /min [facility] 11-07-2023 11:09-0400 SaO2% (BldA) [Mass fraction] 98 % [facility] 11-07-2023 11:09-0400 Systolic blood pressure 123 mm[Hg] [facility] 08-15-2023 11:27-0400 Diastolic blood pressure 84 mm[Hg] Ahsan NOVAK Work Phone: [facility] 08-15-2023 11:27-0400 Heart rate 110 /min Ahsan Flynn PA Work Phone: [facility] 08-15-2023 11:27-0400 Respiratory rate 20 /min Ahsan Flynn PA Work Phone: [facility] 08-15-2023 11:27-0400 Systolic blood pressure 126 mm[Hg] Ahsan Flynn PA Work Phone: [facility] 02-14-2023 11:12-0500 Body height 175.3 cm Ahsan Flynn PA Work Phone: [facility] 02-14-2023 11:12-0500 Body mass index (BMI) [Ratio] 39.43 kg/m2 Ahsan Flynn PA Work Phone: [facility] 02-14-2023 11:12-0500 Body weight 121.11 kg Ahsan Flynn PA Work Phone: [facility] 02-14-2023 11:12-0500 Diastolic blood pressure 94 mm[Hg] Ahsan Flynn PA Work Phone: [facility] 02-14-2023 11:12-0500 Heart rate 89 /min Ahsan Flynn PA Work Phone: [facility] 02-14-2023 11:12-0500 Respiratory rate 18 /min Ahsan Flynn PA Work Phone: [facility] 02-14-2023 11:12-0500 SaO2% (BldA) [Mass fraction] 98 % Ahsan Flynn PA Work Phone: [facility] 02-14-2023 11:12-0500 Systolic blood pressure 143 mm[Hg] Ahsan Flynn PA Work Phone: [facility] 02-07-2023 14:37-0500 Body temperature 98.6 [degF] Riddhi Goss DIRECTOR OF DAT[employer]ASE MARKETING[employer] Work Phone: [facility] 02-07-2023 14:37-0500 Body weight 122.92 kg Riddhi Goss DIRECTOR OF DAT[employer]ASE MARKETING[employer] Work Phone: [facility] 02-07-2023 14:37-0500 Diastolic blood pressure 80 mm[Hg] Riddhi Goss DIRECTOR OF DATABASE MARKETING[employer] Work Phone: [facility] 02-07-2023 14:37-0500 Heart rate 79 /min Riddhi Goss DIRECTOR OF DAT[employer]ASE MARKETING[employer] Work Phone: [facility] 02-07-2023 14:37-0500 SaO2% (BldA) [Mass fraction] 98 % Riddhi Goss DIRECTOR OF DAT[employer]ASE MARKETING[employer] Work Phone: [facility] 02-07-2023 14:37-0500 Systolic blood pressure 157 mm[Hg] Riddhi Goss DIRECTOR OF DATABASE MARKETING[employer] Work Phone: [facility] 02-04-2023 09:16-0500 Blood Pressure Location Cecelia MURILLO [facility] 02-04-2023 09:16-0500 Diastolic blood pressure 88 mm[Hg] Cecelia MURILLO [facility] 02-04-2023 09:16-0500 Heart rate 79 /min Cecelia MURILLO [facility] 02-04-2023 09:16-0500 Respiratory rate 16 /min Cecelia MURILLO [facility] 02-04-2023 09:16-0500 Systolic blood pressure 139 mm[Hg] Cecelia MURILLO [facility] 12-20-2022 14:26-0400 Body height 175.3 cm Singh Morgan PA-C Work Phone: [facility] 12-20-2022 14:26-0400 Body weight 123.11 kg Singh Morgan PA-C Work Phone: [facility] 12-20-2022 14:26-0400 Diastolic blood pressure 84 mm[Hg] Singh Morgan PA-C Work Phone: [facility] 12-20-2022 14:26-0400 Heart rate 76 /min Singh Morgan PA-C Work Phone: [facility] 12-20-2022 14:26-0400 SaO2% (BldA) [Mass fraction] 97 % Singh Morgan PA-C Work Phone: [facility] 12-20-2022 14:26-0400 Systolic blood pressure 165 mm[Hg] Singh Morgan PA-C Work Phone: [facility] 12-06-2022 15:00-0400 Body height 175.26 cm Oumou Reji Other [employer] Other 12-06-2022 15:00-0400 Body mass index (BMI) [Ratio] 39.9 kg/m2 Oumou Reji Other [employer] Other 12-06-2022 15:00-0400 Body temperature 98.1 [degF] Oumou Reji Other [employer] Other 12-06-2022 15:00-0400 Body weight 122.56 kg Oumou Reji Other [employer] Other 12-06-2022 15:00-0400 Diastolic blood pressure 81 mm[Hg] Oumou Reji Other [employer] Other 12-06-2022 15:00-0400 Respiratory rate 20 /min Oumou Reji Other [employer] Other 12-06-2022 15:00-0400 SaO2% (BldA) [Mass fraction] 97 % Oumou Reji Other [employer] Other 12-06-2022 15:00-0400 Systolic blood pressure 127 mm[Hg] Oumou Reji Other [employer] Other 11-05-2022 14:17-0400 Body height 175.3 cm Thomas Mathew MD Work Phone: [facility] 11-05-2022 14:17-0400 Body weight 123.97 kg Thomas Mathew MD Work Phone: [facility] 11-05-2022 14:17-0400 Diastolic blood pressure 84 mm[Hg] Thomas Mathew MD Work Phone: [facility] 11-05-2022 14:17-0400 Heart rate 66 /min Thomas Mathew MD Work Phone: [facility] 11-05-2022 14:17-0400 SaO2% (BldA) [Mass fraction] 100 % Thomas Mathew MD Work Phone: [facility] 11-05-2022 14:17-0400 Systolic blood pressure 156 mm[Hg] Thomas Mathew MD Work Phone: [facility] 10-17-2022 15:41-0400 Blood Pressure Location Maite SQUIRES [facility] [place] 10-17-2022 15:41-0400 Diastolic blood pressure 84 mm[Hg] Maite SQUIRES [facility] [place] 10-17-2022 15:41-0400 Heart rate 70 /min Maite SQUIRES [facility] [place] 10-17-2022 15:41-0400 Respiratory rate 16 /min Maite SQUIRES [facility] [place] 10-17-2022 15:41-0400 Systolic blood pressure 118 mm[Hg] Maite RICKL [facility] [place] 06-21-2022 10:20-0400 Body height 175.26 cm Oumouyesenia Weinstein Other [employer] Other 06-21-2022 10:20-0400 Body mass index (BMI) [Ratio] 40.02 kg/m2 Oumou Reji Other [employer] Other 06-21-2022 10:20-0400 Body temperature 97.6 [degF] Oumuo Reji Other [employer] Other 06-21-2022 10:20-0400 Body weight 122.93 kg Oumou Reji Other [employer] Other 06-21-2022 10:20-0400 Diastolic blood pressure 80 mm[Hg] Oumou Reji Other [employer] Other 06-21-2022 10:20-0400 Respiratory rate 20 /min Oumou Reji Other [employer] Other 06-21-2022 10:20-0400 SaO2% (BldA) [Mass fraction] 97 % Oumou Reji Other [employer] Other 06-21-2022 10:20-0400 Systolic blood pressure 114 mm[Hg] Oumou Reji Other [employer] Other 03-19-2022 09:48-0500 Blood Pressure Location Cecelia LIDIA [facility] 03-19-2022 09:48-0500 Diastolic blood pressure 88 mm[Hg] Cecelia MURILLO [facility] 03-19-2022 09:48-0500 Heart rate 78 /min Cecelia MURILLO [facility] 03-19-2022 09:48-0500 Respiratory rate 16 /min Cecelia MURILLO [facility] 03-19-2022 09:48-0500 Systolic blood pressure 139 mm[Hg] Cecelia MURILLO [facility] 01-11-2022 11:15-0500 Body temperature 98.1 [degF] PHYSICIAN NO [facility] 01-11-2022 11:15-0500 Diastolic blood pressure 88 mm[Hg] PHYSICIAN NO [facility] 01-11-2022 11:15-0500 Heart rate 79 /min PHYSICIAN NO [facility] 01-11-2022 11:15-0500 Respiratory rate 18 /min PHYSICIAN NO [facility] 01-11-2022 11:15-0500 SaO2% (BldA) [Mass fraction] 96 % PHYSICIAN NO [facility] 01-11-2022 11:15-0500 Systolic blood pressure 137 mm[Hg] PHYSICIAN NO [facility] 12-15-2021 12:20-0400 Body height 175.26 cm Estephanie Lowry Other [facility] [employer] Other 12-15-2021 12:20-0400 Body mass index (BMI) [Ratio] 41.49 kg/m2 Estephanie Lowry Other [employer] [facility] [employer] Other 12-15-2021 12:20-0400 Body temperature 98.6 [degF] Estephanie Lowry Other [employer] Other 12-15-2021 12:20-0400 Body weight 127.46 kg Estephanie Lowry Other [employer] Other 12-15-2021 12:20-0400 Diastolic blood pressure 96 mm[Hg] Estephanie Lowry Other [employer] Other 12-15-2021 12:20-0400 Respiratory rate 18 /min Estephanie Hammondmond Other [employer] Other 12-15-2021 12:20-0400 SaO2% (BldA) [Mass fraction] 97 % Estephanie Lowry Other [employer] Other 12-15-2021 12:20-0400 Systolic blood pressure 132 mm[Hg] Estephanie Lowry Other [employer] Other 10-25-2021 14:00-0400 Body height 175.26 cm Oumou Reji Other [employer] Other 10-25-2021 14:00-0400 Body mass index (BMI) [Ratio] 42.02 kg/m2 Oumou Reji Other [employer] Other 10-25-2021 14:00-0400 Body temperature 96.8 [degF] Oumou Reji Other [employer] Other 10-25-2021 14:00-0400 Body weight 129.09 kg Oumou Reji Other [employer] Other 10-25-2021 14:00-0400 Diastolic blood pressure 69 mm[Hg] Oumou Reji Other [employer] Other 10-25-2021 14:00-0400 Respiratory rate 20 /min Oumou Reji Other [employer] Other 10-25-2021 14:00-0400 SaO2% (BldA) [Mass fraction] 98 % Oumou Reji Other [employer] Other 10-25-2021 14:00-0400 Systolic blood pressure 109 mm[Hg] Oumou Reji Other [employer] Other 05-26-2021 10:45-0400 Body temperature 98.8 [degF] Octavio Mcclellan [employer] Work Phone: [employer] 05-26-2021 10:45-0400 Respiratory rate 18 /min Octavio Mcclellan [employer] Work Phone: [facility] 05-26-2021 10:45-0400 SaO2% (BldA) [Mass fraction] 98 % Octavio Mcclellan [employer] Work Phone: [facility] 05-26-2021 07:30-0400 Heart rate 105 /min Octavio Mcclellan [employer] Work Phone: [facility] 05-25-2021 23:20-0400 Diastolic blood pressure 85 mm[Hg] Octavio Mcclellan [employer] Work Phone: [facility] 05-25-2021 23:20-0400 Systolic blood pressure 130 mm[Hg] Octavio Mcclellan [employer] Work Phone: [facility] 05-24-2021 10:15-0400 Body height 175.3 cm Octavio Mcclellan [employer] Work Phone: [facility] 05-24-2021 10:15-0400 Body mass index (BMI) [Ratio] 50.65 kg/m2 Octavio Mcclellan [employer] Work Phone: [facility] 05-24-2021 10:15-0400 Body weight 155.58 kg Octavio Mcclellan [employer] Work Phone: [facility] 05-08-2021 11:04-0400 Body height 175.[address] [facility] 05-08-2021 11:04-0400 Body mass index (BMI) [Ratio] 51.98 kg/m2 [facility] 05-08-2021 11:04-0400 Body temperature 97.3 [degF] [facility] 05-08-[facility]21 11:04-0400 Body weight 159.[address] [place] 05-08-2021 11:04-0400 Diastolic blood pressure 83 mm[Hg] [address] [place] 05-08-2021 11:04-0400 Heart rate 126 /min [address] [place] 05-08-2021 11:04-0400 Respiratory rate 20 /min [address] [place] 05-08-2021 11:04-0400 SaO2% (BldA) [Mass fraction] 95 % [address] [facility] 05-08-2021 11:04-0400 Systolic blood pressure 121 mm[Hg] [address] [place] 01-08-2020 14:04-0500 BMI (Body Mass Index) 47.99 kg/m2 [facility] 01-08-2020 14:04-0500 Body Temperature 96.69 [degF] [facility] [employer] [facility] 01-08-2020 14:04-0500 Body weight 147.42 kg [facility] [employer] [facility] 01-08-2020 14:04-0500 Height 175.3 cm [facility] [employer] [facility] 04-11-2019 12:42-0500 BMI (Body Mass Index) 44.3 kg/m2 [employer] Work Phone: 04-11-2019 12:42-0500 Body Temperature 97.39 [degF] [employer] Work Phone: 04-11-2019 12:42-0500 Body weight 136.08 kg [employer] Work Phone: 04-11-2019 12:42-0500 BP Diastolic 98 mm[Hg] [employer] Work Phone: 04-11-2019 12:42-0500 BP Systolic 196 mm[Hg] [employer] Work Phone: 04-11-2019 12:42-0500 Height 175.3 cm [employer] Phone: 04-11-2019 12:42-0500 Pulse (Heart Rate) 72 /min [employer] Phone: 04-11-2019 12:42-0500 Pulse Oximetry 96 % [employer] Phone: 04-11-2019 12:42-0500 Respiratory Rate 16 /min [employer] Work Phone: Encounters Encounter Date Encounter Type Care Provider Facility Start: 08-13-2025 ambulatory Cecelia MURILLO [facility] ty: Laura Start: 08-07-2024 End: 08-07-2024 ambulatory Cecelia MURILLO Facility:[facility] [place] Start: 08-07-2024 End: 08-07-2024 Patient encounter procedure Cecelia MURILLO [facility] [facility] Start: 06-22-2024 End: 06-22-2024 ambulatory Cecelia MURILLO Facility:[facility] Start: 06-17-2024 End: 06-17-2024 ambulatory [facility] Start: 05-18-2024 ambulatory [facility] Start: 05-18-2024 End: 05-18-2024 ambulatory [facility] Start: 04-10-2024 End: 04-21-2024 Telephone encounter Cherelle Oleary RN [facility] Start: 03-03-2024 End: 03-04-2024 Telephone encounter Cherelle Oleary RN [facility] Start: 02-13-2024 End: 02-13-2024 ambulatory AHSAN FLYNN [facility] Start: 02-13-2024 End: 02-13-2024 Office outpatient visit 15 minutes Ahsan Flynn PA Work Phone: [facility] Comment on above: Spinal stenosis, lum bar region, with neurogenic claudication (Primary Dx) Start: 02-03-2024 End: 02-03-2024 ambulatory Cecelia MURILLO Facility:[facility] Start: 02-03-2024 End: 02-03-2024 Patient encounter procedure Cecelia MURILLO [facility] Start: 12-05-2023 End: 12-05-2023 ambulatory [facility] Start: 12-05-2023 End: 12-05-2023 Office outpatient visit 15 minutes Ahsan NOVAK Work Phone: [facility] Comment on above: Spinal stenosis, lum bar region, with neurogenic claudication (Primary Dx) Start: 11-07-2023 End: 11-07-2023 ambulatory [facility] Work Phone: Start: 11-07-2023 End: 11-07-2023 Patient encounter procedure Count Includes [facility] Physician [facility] Nephrology Reg Work Phone: Start: 10-29-2023 Non-patient / Non-visit Count Includes [facility] Physician [facility] Work Phone: Start: 10-07-2023 End: 06-25-2024 Telephone encounter Thomas Mathew MD Work Phone: Neurology Comment on above: Appointment Start: 10-04-2023 Telephone encounter Thomas crabtree MD Work Phone: Neurology Comment on above: Results Start: 08-15-2023 End: 08-15-2023 Office outpatient visit 15 minutes Ahsan NOVAK Work Phone: [facility] Comment on above: Spinal stenosis, lum bar region, with neurogenic claudication (Primary Dx) Start: 08-15-2023 End: 08-15-2023 ambulatory [facility] Start: 07-30-2023 Telephone encounter Thomas crabtree MD Work Phone: Neurology Comment on above: Appointment; Orders Start: 07-23-2023 Telephone encounter Thomas crabtree MD Work Phone: Neurology Start: 05-08-2023 End: 05-08-2023 ambulatory Thomas Mathew MD Work Phone: Neurosurgery Comment on above: Radiculopathy, lumba r region (Primary Dx) Start: 05-08-2023 End: 05-08-2023 Telemedicine consultation with patient Thomas Mathew MD Work Phone: [facility] Start: 05-08-2023 Telephone encounter Cherelle Oleary RN [facility] Start: 05-07-2023 Telephone encounter Cherelle Oleary RN [facility] Start: 04-16-2023 Telephone encounter Thomas crabtree MD Work Phone: Neurology Comment on above: Imaging Disc Start: 04-10-2023 Telephone encounter Thomas crabtree MD Work Phone: Neurology Comment on above: PT Certification Start: 04-09-2023 Telephone encounter Thomas crabtree MD Work Phone: Neurology Start: 02-14-2023 End: 02-14-2023 Office outpatient visit 15 minutes Ahsan NOVAK Work Phone: [facility] Comment on above: Spinal stenosis, lum bar region, with neurogenic claudication (Primary Dx) Start: 02-07-2023 End: 02-07-2023 Patient encounter procedure Riddhi Goss DIRECTOR OF DATABASE MARKETING.TAPEMAN Work Phone: Neurosurgery Comment on above: 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) Start: 02-07-2023 Telephone encounter Thomas crabtree MD Work Phone: Neurosurgery Start: 02-04-2023 End: 02-04-2023 Patient encounter procedure Cecelia Jj LIDIA [facility] Start: 01-23-2023 Telephone encounter Thomas crabtree [...] Evaluation and management of inpatient THOMAS MATHEW Facility:[facility] Start: 12-06-2022 End: 12-06-2022 ambulatory Oumou Weinstein Other [employer] Other Start: 12-06-2022 Office outpatient vi sit 25 minutes Oumou Weinstein [facility] Nephrology Reg Start: 11-21-2022 End: 11-21-2022 ambulatory MAITE GALLOWAY Facility:[facility] Start: 11-21-2022 End: 11-21-2022 ambulatory BLAYNE ISABEL Facility:[facility] Start: 11-21-2022 End: 11-21-2022 ambulatory BLAYNE ISABEL Facility:[facility] Start: 11-21-2022 Encounter for other preprocedural examination BLAYNE ISABEL [facility] Start: 11-05-2022 End: 11-05-2022 Patient encounter procedure Thomas Mathew MD Work Phone: Neurosurgery Comment on above: 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 Facility:[facility] Start: 06-21-2022 End: 06-21-2022 ambulatory Oumou Reji Other [employer] Other Start: 06-21-2022 Office outpatient vi sit 25 minutes Oumou Reji [facility] Start: 06-11-2022 End: 06-12-2022 ambulatory OUMOU REJI Facility:[facility] Start: 04-03-2022 End: 04-03-2022 ambulatory Oumou Reji Other [employer] Other Start: 04-03-2022 Telephone encounter Oumou Reji [facility] Start: 03-20-2022 Encounter for preprocedural laboratory examination DR DOCTOR MILES [facility] Start: 03-19-2022 End: 03-19-2022 Patient encounter procedure Cecelia MURILLO [facility] Start: 03-15-2022 End: 03-16-[address] DOCTOR MILES Facility:[facility] Start: 03-15-2022 End: 03-16-2022 Encounter for preprocedural laboratory examination DR DOCTOR MILES Facility:[facility] Start: 03-12-2022 End: 03-13-[address] CECELIA MURILLO . Facility:[facility] Start: 03-08-2022 End: 03-09-[address] DOCTOR MILES Facility:[facility] Start: 01-27-2022 Encounter for genera l adult medical examination without abnormal findings DR BLAYNE ISABEL . [facility] Start: 01-24-2022 End: 01-25-[address] BLAYNE ISABEL . Facility:[facility] Start: 01-24-2022 End: 01-25-2022 Encounter for general adult medical examination without abnormal findings DR BLAYNE ISABEL . Facility:[facility] Start: 01-22-2022 End: 01-22-2022 ambulatory Oumou Reji Other [employer] Other Start: 01-22-2022 Telephone encounter Oumou Reji [facility] Start: 01-11-2022 End: 01-11-2022 ambulatory PHYSICIAN NO FAMILY Facility:[facility] Start: 01-11-2022 End: 01-11-2022 ambulatory PHYSICIAN NO [facility] Work Phone: Start: 01-11-2022 End: 01-11-2022 Discharged Recurring PHYSICIAN NO [facility]-Infusion Therapy - O/P Start: 01-10-2022 End: 01-10-2022 ambulatory Oumou Reji Other [employer] Other Start: 01-10-2022 Telephone encounter Oumou Reji [facility] Start: 01-02-2022 End: 01-02-2022 ambulatory Oumou Reji Other [employer] Other Start: 01-02-2022 Telephone encounter Oumou Reji [facility] Start: 01-01-2022 End: 01-01-2022 ambulatory Oumou Reji Other [employer] Other Start: 01-01-2022 Telephone encounter Oumou Reji [facility] Start: 12-21-2021 End: 12-22-[address] BLAYNE ISABEL . Facility:[facility] Start: 12-15-2021 Office outpatient vi sit 15 minutes Estephanie Lowry [facility] Start: 12-15-2021 Telephone encounter Oumou Reji [facility] Start: 12-15-2021 End: 12-15-2021 ambulatory Estephanie Lowry [facility] [employer] Other Start: 12-15-2021 End: 12-15-2021 Departed Referred SAND MILL OPERATOR-C Estephanie Lowry Work Phone: [facility] Main [place] Start: 11-24-2021 End: 11-25-2021 ambulatory OUMOU REJI Facility:[facility] Start: 11-15-2021 End: 11-15-2021 ambulatory OUMOU REJI Facility:[facility] Start: 11-14-2021 End: 11-15-2021 ambulatory OUMOU REJI Facility:[facility] Start: 11-01-2021 End: 11-02-[address] BLAYNE ISABEL . Facility:[facility] Start: 10-31-2021 End: 11-01-[address] BLAYNE ISABEL . Facility:[facility] Start: 10-25-2021 End: 10-25-2021 ambulatory Oumou Reji Other [employer] Other Start: 10-25-2021 Office outpatient ne w 45 minutes Oumou Reji [facility] Start: 10-18-2021 End: 10-19-[address] BLAYNE ISABEL . Facility:[facility] Start: 10-17-2021 Encounter for other specified special [facility] Start: 10-17-2021 Encounter for preprocedural laboratory examination [facility] Start: 10-16-2021 End: 10-17-[address] BLAYNE ISABEL . Facility:[facility] Start: 10-16-2021 End: 10-17-2021 Encounter for other specified special examinations DR DOCTOR MILES Facility:[facility] Start: 10-13-2021 End: 10-21-2021 ambulatory PHYSICIAN BRADFORD Facility:[facility] Start: 10-10-2021 End: 10-11-[address] [...] Evaluation and management of inpatient LEISA PERRY [facility] Start: 05-24-2021 End: 05-26-2021 ambulatory OCTAVIO Jj [facility] Start: 05-24-2021 End: 05-26-2021 Subsequent hospital visit by physician Octavio Mcclellan DO Work Phone: [facility] Ortho/Med Surg Comment on above: S/P laparoscopic sle may gastrectomy (Primary Dx) Start: 05-08-2021 End: 05-08-2021 Subsequent hospital visit by physician Twyla Pat 2 [facility] Pre-Admit Testing Comment on above: Canceled (Other) Start: 05-08-2021 End: 05-11-2021 ambulatory OCTAVIO MCCLELLAN [facility] Start: 05-08-2021 End: 05-13-2021 ambulatory OCTAVIO Jj [facility] Start: 05-08-2021 End: 05-10-2021 Patient encounter status Stv Xr [facility] Radiology Start: 05-08-2021 End: 05-10-2021 Subsequent hospital visit by physician Glory Mccracken Xr [facility] Radiology Comment on above: Pre-op chest exam Start: 05-08-2021 End: 05-12-2021 Subsequent hospital visit by physician Twyla Mccracken Rm 2 [facility] Pre-Admit Testing Start: 05-05-2020 End: 05-05-2020 Patient encounter procedure Blayne Bañuelosy -Pre-Surgical Testing Start: 02-04-2020 End: 02-04-2020 Subsequent hospital visit by physician Suzanne Pruett Work Phone: [facility] Echocardi[facility] Comment on above: Arrived Start: 01-08-2020 End: 01-08-2020 Subsequent hospital visit by physician Alexandro Muhammad Work Phone: [facility] Radiology Start: 01-08-2020 End: 01-08-2020 Office outpatient new 30 minutes Alexandro Muhammad Work Phone: [facility] Comment on above: Fluid retention in l egs (Primary Dx) Start: 06-10-2019 End: 06-11-2019 Patient encounter procedure SELVON [facility] Facility:[facility] Start: 04-16-2019 End: 04-19-2019 Patient encounter procedure ARSENIO BHATTI [facility] Start: 04-16-2019 End: 04-18-2019 Subsequent hospital visit by physician Nelson Xr Room 4 [facility] Comment on above: Injury Start: 04-11-2019 End: 04-11-2019 Emergency department [facility] Start: 04-11-2019 End: 04-11-2019 [facility] Work Phone: [facility] ED Comment on above: Acute bilateral low back pain with right-sided sciatica (Primary Dx); Traumatic buttock pain Procedures Date Procedure Procedure Detail Performing Clinician Start: 11-21-2022 Antibody screen BLAYNE ISABEL Comment on above: Order Comment: Speci men Type: BLOOD SPECIMENOrdering Facility: [facility] Address: [address] [place], [place] [id number] Performed By: #### T [id number] ####CC MAIN BLOOD BANKCLIA [id number] [facility] [id number] [place], [place] [id number] [place] Start: 02-25-2022 Arthroplasty of knee Pa hiram MURILLO Start: 02-25-2022 Lumbar spinal fusion Pa zelalemvarghese MURILLO Start: 01-24-[address] SHERRI MURILLO . Comment on above: Performed By: #### P TT #### [facility] [address] [place] [address] Dr. Hugh Landis Start: 07-13-2021 Cystoscopic removal [...] Start: 05-08-2021 Assay of nicotine Ever Mcclellan [employer] Work Phone: Start: 05-08-2021 Basic metabolic pane [...] MURILLO Bilateral replacemen t of knee joints Cceelia MURILLO Chondrectomy of semi lunar cartilage of knee Maite RICKKelly Cystoscopy Cecelia MURILLO Lumbar spinal fusion Cecelia MURILLO Urine culture PHYSICIAN TOM BUSBY Plan of Treatment Date Care Activity Detail Author Start: 01-24-2027 Prostate Cancer Screening Discussion Prostate Cancer Screening Discussion [facility] Start: 01-24-2027 Prostate specific antigen measurement Prostate Cancer Screening Discussion [facility] Start: 02-12-2025 Adult BMI Screening Adult BMI Screening [facility] Start: 02-12-2025 Tobacco Screening Tobacco Screening [facility] Start: 12-04-2024 Adult BMI Screening Adult BMI Screening [facility] Start: 12-04-2024 Tobacco Screening Tobacco Screening [facility] Start: 10-26-2024 Influenza vaccination Influenza Vaccine (Season Ended) [facility] Start: 08-14-2024 Tobacco Screening Tobacco Screening [facility] Start: 02-15-2024 Adult BMI Screening Adult BMI Screening [facility] Start: 02-15-2024 Tobacco Screening Tobacco Screening [facility] Start: 02-13-2024 End: 02-13-2024 Patient encounter procedure 02/13/2024 10:45 AM EST Office Visit [facility] [address] [place] [address] Ahsan Flynn, PA [address] [place] [address] [facility] Pain Management [facility] Start: 12-12-2023 Creatinine measurement Serum Creatinine [facility] Start: 12-12-2023 Serum Creatinine Serum Creatinine [facility] Start: 10-27-2023 Covid-19 Vaccine () Covid-19 Vaccine ( season) [facility] Start: 10-27-2023 Influenza vaccination [facility] Start: 10-07-2023 End: 10-07-2023 Follow-up encounter Neurosurgery Comment on above: FOLLOW UP Start: 2023 RSV Vaccine (1 - 1-dose 60+ series) RSV Vaccine (1 - 1-dose 60+ series) [facility] Start: 2023 RSV Vaccine (1 - Risk 60-74 years 1-dose series) RSV Vaccine (1 - Risk 60-74 years 1-dose series) [facility] Start: 08-15-2023 End: 08-15-2023 Patient encounter procedure 08/15/2023 11:15 AM EDT Office Visit [facility] Pain [facility] [address] [place] [phone] Ahsan Flynn PA [address] [place] [address] [facility] Pain [facility] Start: 05-22-2023 Hemoglobin A1c measurement HbA1C [facility] Start: 05-22-2023 Hemoglobin A1c/Hemoglobin.total in Blood HbA1C [facility] Start: 02-25-2023 Behavioral Health Screening Behavioral Health Screening [facility] Start: 02-25-2023 Depression Assessment Depression Assessment [facility] Start: 01-20-2023 End: 01-19-2024 Radex spine lumbosacral 2/3 views XR LUMBAR LIMITED 2V AP/LAT Radiology Routine Lumbar adjacent segment disease with spondylolisthesis Expected: 01/20/2023, Expires: 01/19/2024 [facility] Work Phone: Comment on above: Expected: 01/20/2023, Expires: Start: 10-26-2022 Covid-19 Vaccine ( season) Covid-19 Vaccine ( season) [facility] Start: 10-26-2022 Influenza vaccination [facility] Start: 05-25-2022 Creatinine measurement Creatinine monitoring [facility] Start: 05-25-2022 Potassium monitoring Potassium monitoring [facility] Start: 05-08-2022 Creatinine measurement Creatinine monitoring [facility] Start: 05-08-2022 Potassium monitoring Potassium monitoring [facility] Start: 02-25-2022 DEPRESSION ASSESSMENT DEPRESSION ASSESSMENT [facility] Start: 01-03-2022 Hemoglobin A1c measurement A1C test (Diabetic or Prediabetic) [facility] Start: 01-03-2022 Lipid panel Lipid screen [facility] Start: 10-26-2021 Influenza vaccination Flu vaccine (Season Ended) [facility] Start: 06-06-2021 End: 06-06-2021 Patient encounter procedure 06/06/2021 Office Visit Oncology Spencer Guy MD [address] [place] [address] [facility] Start: 06-02-2021 End: 06-02-2021 Patient encounter procedure 06/02/2021 Office Visit Bariatrics Octavio Mcclellan DO [address] [place] [phone] [facility] Invasive Bariatric Surg Start: 05-24-2021 End: 05-24-2021 Admission to same day surgery center [facility] OR Comment on above: XI ROBOTIC LAPOROSCOPIC GASTRECTOMY SLEE VE, LIVER BIOPSY, EGD- GI SCHEDULED XI ROBOTIC LAPOROSCO PIC GASTRECTOMY SLEEVE, LIVER BIOPSY, EGD- GI SCHEDULED, POSSIBLE OPEN Start: 05-24-2021 End: 05-24-2021 Laps gstrc rstrictiv px longitudinal gastrectomy [facility] Start: 05-24-2021 Subsequent hospital visit by physician 05/24/2021 Hospital Encounter IP Unit Octavio Mcclellan DO [address] [place] [id number] [facility] Start: 05-19-2021 End: 05-19-2021 Patient encounter procedure 05/19/2021 Appointment Pre-Admission Testing [facility] PRE ADMIT Start: 05-18-2021 End: 05-18-2021 Patient encounter procedure 05/18/2021 Office Visit Bariatrics JerodOctavio, DO [address] [place] [phone] [facility] Invasive Bariatric Surg Start: 10-26-2020 Influenza vaccination Flu vaccine (#1) [facility] [employer] Start: 04-04-2020 End: 04-04-2020 Office Visit 04/04/2020 Office Visit Cardiovascular Medicine Suzanne Pruett MD [address] [place] [address] [phone] [facility] Cardiology Start: 02-02-2020 End: 02-02-2020 Office Visit 02/02/2020 Office Visit Cardiovascular Medicine Suzanne Pruett MD [address] [place] [address] [phone] [facility] Start: 10-27-2019 Influenza vaccination INFLUENZA VACCINE (#1) [facility] Start: 10-26-2018 Influenza vaccination Flu vaccine (#1) [employer] Phone: Start: 09-10-2018 PROSTATE CANCER SCREENING DISCUSSION PROSTATE CANCER SCREENING DISCUSSION [facility] Start: 09-10-2013 Administration of varicella zoster vaccine Zoster (Shingles) Vaccine (1 of 2) [facility] Start: 09-10-2013 Colon cancer screen colonoscopy Colon cancer screen colonoscopy [employer] Phone: Start: 09-10-2013 Colonoscopy COLORECTAL CANCER SCREENING DISCUSSION [facility] Start: 09-10-2013 Prostate specific antigen measurement PROSTATE CANCER SCREENING DISCUSSION [facility] Start: 09-10-2013 Shingles Vaccine (1 of 2) Shingles Vaccine (1 of 2) [facility] Start: 09-10-2013 SHINGRIX VACCINE (1 of 2) SHINGRIX VACCINE (1 of 2) [facility] Start: 09-10-2013 Zoster vaccine hzv live for subcutaneous use ZOSTER (SHINGLES) VACCINE (1 of 2) [facility] Start: 09-10-2008 COLOGUARD (FIT-DNA) COLOGUARD (FIT-DNA) [facility] Start: 09-10-2008 Colonoscopy COLONOSCOPY [facility] Start: 09-10-2008 COLORECTAL CANCER SCREENING COLORECTAL CANCER SCREENING [facility] Start: 09-10-[address] COLONOGRAPHY [facility] Start: 09-10-2008 DIABETES SCREEN DIABETES SCREEN [facility] Start: 09-10-2008 Diabetes Screening Diabetes Screening [facility] Start: 09-10-2008 FECAL OCCULT BLOOD FECAL OCCULT BLOOD [facility] Start: 09-10-2008 Screening for malignant neoplasm of colon [facility] Start: 09-10-2008 SIGMOIDOSCOPY SIGMOIDOSCOPY [facility] Start: 2003 Diabetes screen Diabetes screen [facility] [employer] Phone: Start: 2003 Fasting lipid profile LIPID SCREENING [facility] [employer] Start: 2003 Lipid screen Lipid screen [facility] Phone: Start: 09-10-1998 Lipid 1996 panel - Serum or Plasma Lipid Screening [facility] Start: 09-10-1998 LIPID SCREEN LIPID SCREEN [facility] Start: 09-10-1982 DTaP,Tdap and Td Vaccines (1 - Tdap) DTaP,Tdap and Td Vaccines (1 - Tdap) [facility] Start: 09-10-1982 DTaP/Tdap/Td vaccine (1 - Tdap) DTaP/Tdap/Td vaccine (1 - Tdap) [facility] Start: 09-10-1982 Hepatitis B vaccine (1 of 3 - Risk 3-dose series) Hepatitis B vaccine (1 of 3 - Risk 3-dose series) [facility] Start: 09-10-1982 Pneumococcal Vaccine: 50+ (1 of 2 - PCV) Pneumococcal Vaccine: 50+ (1 of 2 - PCV) [facility] Start: 09-10-1982 Third diphtheria, tetanus and acellular pertussis (DTaP) vaccination TDAP (ADULT) [facility] Start: 09-10-1982 Urine microalbumin profile [facility] Start: 09-10-1981 Adult BMI Follow Up Plan Adult BMI Follow Up Plan [facility] Start: 09-10-1981 Annual PCP Team Chronic Disease Visit Annual PCP Team Chronic Disease Visit [facility] Start: 09-10-1981 BP Controlled (<130/80) BP Controlled (<130/80) [facility] Start: 09-10-1981 Depression Screening Depression Screening [facility] Start: 09-10-1981 Diabetic retinal exam Diabetic retinal exam [facility] Start: 09-10-1981 Hepatitis B surface antibody level LDL Cholesterol [facility] Start: 09-10-1981 HEPATITIS C SCREENING HEPATITIS C SCREENING [facility] Start: 09-10-1981 Hepatitis C screening Hepatitis C Screening [facility] Start: 09-10-1981 HIV SCREENING HIV SCREENING [facility] Start: 09-10-1981 HIV screening HIV Screening [facility] Start: 09-10-1981 Tetanus vaccination TETANUS [facility] Start: 09-10-1981 Urine screening for protein Diabetic microalbuminuria test [facility] Start: 09-10-1978 HIV screen HIV screen [facility] Phone: Start: 09-10-1978 HIV screening HIV screen [facility] Start: 09-10-1976 HIV screening HIV SCREENING DISCUSSION [employer] Start: 1975 Depression Screen Depression Screen [facility] Start: 1975 Depression Screening Depression Screening [facility] Start: 09-10-1974 DTaP/Tdap/Td vaccine (1 - Tdap) DTaP/Tdap/Td vaccine (1 - Tdap) [facility] [employer] Phone: Start: 09-10-1973 3 comp foot exam completed Diabetic Foot Exam [facility] Start: 09-10-1973 Diabetic foot examination Diabetic foot exam [facility] Start: 09-10-1973 Glaucoma screening Dilated Retinal Exam [facility] Start: 09-10-1973 Hepatitis B screening Urine Albumin:Creatinine Ratio [facility] Start: 09-10-1973 Hepatitis C antibody, confirmatory test Dilated Retinal Exam [facility] Start: 09-10-1969 Pneumococcal 0-64 years Vaccine (1 of 2 - PPSV23) Pneumococcal 0-64 years Vaccine (1 of 2 - PPSV23) [facility] Start: 09-10-1969 Pneumococcal vaccination [facility] Start: 09-10-1968 COVID-19 Vaccine (1) COVID-19 Vaccine (1) [employer] Start: 03-13-1964 COVID-19 VACCINE (#1) COVID-19 VACCINE (#1) [facility] Start: 1965 Hepatitis C antibody, confirmatory test HEPATITIS C VIRUS SCREENING [employer] Start: 1965 Hepatitis C screen Hepatitis C screen [employer] Phone: Start: 1965 Hepatitis C screening Hepatitis C screen [employer] Start: 1965 Potassium [Moles/Vol] POTASSIUM Platogo Syste m Bacteria identified in Urine by Culture [facility] Chlamydia trachomati s DNA [Presence] in Unspecified specimen by MUKUL with probe detection [facility] Work Phone: Continuous pulse oximetry Pulse oximetry, continuous Respiratory Care Routine Every 4hr until discontinued starting 05/24/2021 [employer] Phone: Comment on above: Every 4hr until discontinued starting CT LUMBAR SPINE WO CONTRAST CT LUMBAR SPINE WO CONTRAST Imaging STAT 04/11/2019 1:43 PM EST [employer] Phone: Neisseria gonorrhoea e DNA [Presence] in Unspecified specimen by MUKUL with probe detection [facility] Work Phone: Oxygen therapy [[facility] Data Set] Initiate Oxygen Therapy Protocol Respiratory Care Routine As Needed until discontinued starting 05/24/2021 [employer] Phone: Comment on above: As Needed until discontinued starting Radiography for bone length studies XR BONE LENGTH STUDY Imaging Routine Hx of total knee arthroplasty, right 01/08/2020 1:37 PM EST [employer] Renal function 2000 panel - Serum or Plasma [facility] Spirometry panel Incentive silverio metry Respiratory Care Routine Every 2hr while awake until discontinued starting 05/24/2021 [employer] Phone: Comment on above: Every 2hr while awake until discontinued starting 05/24/2021 Surgical Pathology Surgical Path ology Lab Routine Release Upon Ordering for 1 Occurrences starting 05/24/2021 [employer] Phone: Comment on above: Release Upon Ordering for 1 Occurrences starting 05/24/2021 Trichomonas vaginali s DNA [Presence] in Unspecified specimen by MUKUL with probe detection [facility] Work Phone: X-ray of right knee XR KNEE RIGH T 3 VIEWS Imaging Routine Hx of total knee arthroplasty, right 01/08/2020 1:37 PM [facility] End: 06-06-2024 XR Lumbar spine AP and Lateral XR LUMBAR LIMITED 2V AP/LAT Radiology Routine Radiculopathy, lumbar region 1 Occurrences starting 05/08/2023 until 06/06/2024 [facility] Work Phone: Comment on above: 1 Occurrences starting 05/08/2023 until 06/06/2024 [facility] Immunizations Immunization Date Immunization Notes Care Provider Jazmin mariscal 05-08-2023 influenza virus vacc ine, unspecified formulation Thomas Mathew MD Work Phone: [facility] Payers Date Payer Category Payer Self-pay [id number] 2019 Private Health Insurance [id number] 2019 Worker's Compensation 2019 Government (not [facility] care or Medicaid) [facility] [place] [address] [id number] [id number] 2019 Unknown HEALTH MANAGEMEN T SOLUTIONS HEALTH MGMT SOLUTIONS [facility] FUNDED xxxxxxxx 2019-Present [phone] [place] [address] xxxxxxxx [id number]. 2.7.3.987389.315 2019 Unknown [id number] 2019 Unknown [id number] 2019 Unknown HEALTH MANAGEMEN T SOLUTIONS HEALTH MGMT SOLUTIONS [facility] FUNDED xxxxx 2019-Present [phone] [place] [address] xxxxx [id number]. 2.7.3.826847.315 2019 Unknown [id number]. 1.13.159. 2.7.3.597446.315 2019 Worker's Comp Other Managed Care [facility] [id number]. 2.7.9.955536.306.315 2019 Unknown [id number] 2014 Private Health Insurance [id number] 2014 Private Health Insurance BRENTON Carlos KATI xxxxxxxxxx 2014-Present [phone] [id number] [place] [address] xxxxxxxxxx 1.2.840.420161.1.13.239. 2.7.3.975860.315 2013 Private Health Insurance 1965 Unknown [id number] 2.16.840.1.019126.3.579. 2.176 1963 Unknown [id number] 2.16.840.1.433517.3.579. 2.176 1963 Unknown [id number] 2.16.840.1.260549.3.579. 2.176 1963 Unknown [id number] 2.16.840.1.567846.3.579. 2.196 1963 Unknown [id number] 2.16.840.1.485889.3.579. 2.175 1963 Unknown [id number] 2.16.840.1.424858.3.579. 2.647 1963 Unknown [id number] 2.16.840.1.171472.3.579. 2.593 1963 Unknown [id number] 2.16.840.1.408250.3.579. 2.593 1963 Unknown [id number] 2.16.840.1.751943.3.579. 2.593 1963 Unknown [id number] 2.16.840.1.730797.3.579. 2.593 1963 Unknown [id number] 2.16.840.1.031994.3.579. 2.593 1963 Unknown [id number] 2.16.840.1.305119.3.579. 2.593 1963 Unknown [id number] 2.16.840.1.545842.3.579. 2.593 1963 Unknown [id number] 2.16.840.1.494923.3.579. 2.593 1963 Unknown [id number] 2.16.840.1.774196.3.579. 2.593 1963 Unknown [id number] 2.16.840.1.889663.3.579. 2.593 1963 Unknown [id number] 2.16.840.1.584326.3.579. 2.593 1963 Unknown [id number] 2.16.840.1.165339.3.579. 2.59 1963 Unknown [id number] 2.16.840.1.324745.3.579. 2.59 1963 Unknown [id number] 2.16840.1.316483.3.579. 2.59 1963 Unknown [id number] 2.16840.1.331925.3.579. 2.59 1963 Unknown [id number] 2.840.1.740515.3.579. 259 1963 Unknown [id number] 2.840.1.279498.3.579. 259 1963 Unknown [id number] 2.840.1.682484.3.579. 259 1963 Unknown [id number] 2.840.1.394686.3.579. 2.59 1963 Unknown [id number] 2.840.1.178163.3.579. 259 1963 Unknown [id number] 2.840.1.881243.3.579. 2.59 1963 Unknown [id number] 2.840.1.021180.3.579. 2.59 1963 Unknown [id number] 2.840.1.187603.3.579. 2.59 1963 Unknown [id number] 2.840.1.659978.3.579. 2.1286 1963 Unknown [id number] 2.16840.1.705003.3.579. 2.128 1963 Unknown [id number] 2.840.1.246735.3.579. 2.1286 1963 Unknown [id number] 2.16.840.1.291120.3.579. 2.727 1963 Unknown [id number] 2.16.840.1.944743.3.579. 2.727 1963 Unknown [id number] 2.16.840.1.820912.3.579. 2.727 1963 Unknown [id number] 2.16.840.1.427285.3.579. 2.727 1959 Unknown [id number] 1.2.840.611619.1.13.239. 2.7.3.127477.315 1959 Unknown [id number] Self-pay Self Pay Cosmet[facility] c/Pain Mgmt [id number] Unknown [id number] 2.16.840.1.292842.3.579. 2.531 Unknown [id number] 2.16.840.1.464792.3.579. 2.531 Unknown [id number] 2.16.840.1.150098.19 Social History Date Type Detail Facility Start: 04-11-2019 End: 08-07-2024 Tobacco smoking status CAIS Never smoker [facility] Start: 04-11-2019 End: 05-25-2021 Alcohol intake Lifetime non-drinker (finding) [employer] Phone: Start: 04-11-2019 End: 01-08-2020 History SDOH Alcohol Frequency 1 [employer] Phone: Start: 1965 Sex Assigned At Not on file [employer] Phone: Start: 11-26-2013 End: 01-08-2020 Tobacco use and exposure Never used [employer] Start: 1965 Sex Assigned At Male F [facility] Start: 04-08-2021 End: 05-24-2021 Exposure to SARS-CoV-2 (event) Not sure [employer] Phone: Start: 11-05-2022 End: 03-25-2023 Sex Assigned At [facility] Start: 01-26-2014 End: 03-25-2023 Alcohol intake Current non-drinker of alcohol (finding) [facility] Tobacco smoking status Never [facility] [place] Start: 11-05-2022 End: 03-25-2023 History of Social function [facility] Start: 12-05-2023 End: 02-13-2024 Alcoholic beverage intake Ex-drinker (finding) [facility] [employer] [facility] Start: 06-08-2009 End: 09-30-2014 Sex Male (finding) [facility] Sexual Orientation [facility] Medical Equipment Procedure Code Equipment Code Equipment Origin al Text Equipment Identifier Dates CYSTOSCOPY W/ HO MIUM LASER Octavio ARAIZA MD 03/28/20 Unknown Abdomen {[id number] [id number] Start: 03-28-2020 Screw Darby 3 Alicia nium Set Merlyn Spine - [id number] Start: 12-07-2022 Screw Darby 3 Serr eladio 6.5mm 50mm Bone Polyaxial Nonsterile Spine - [id number] Start: 12-07-2022 Vitoss Ba2x Bioactive Bone Graft Substitute 5.0cub Cm [id number] Start: 12-07-2022 Cage Tritanium 6 d [id number] Spinal Sterile Latex Free Lumbar Posterior - [id number] Start: 12-07-2022 Cage Tritanium 6 d [id number] Spinal Sterile Latex Free Lumbar Posterior - [id number] Start: 12-07-2022 Screw Darby 3 Serr eladio 6.5mm 45mm Bone Polyaxial Nonsterile Spine - [id number] Start: 12-07-2022 Goals Date Patient Goal Desired Activity /State Functional Status Date Assessment Result Facility 02-04-2023 Functional Status N/A [facility] 12-11-2022 Are you deaf, or do you have serious difficulty hearing No 12/11/2022 12:52 PM EDT Livia Calix RN No [facility] 12-11-2022 Are you blind, or do you have serious difficulty seeing, even when wearing glasses No 12/11/2022 12:52 PM EDT Livia Calix RN No [facility] 12-11-2022 Do you have serious difficulty walking or climbing stairs No 12/11/2022 12:52 PM EDT Livia Calix RN No [facility] 12-11-2022 Do you have difficul ty dressing or bathing No 12/11/2022 12:52 PM EDT Livia Calix RN No [facility] 12-11-2022 Because of a physica l, mental, or emotional condition, do you have difficulty doing errands alone such as visiting a physician's office or shopping No 12/11/2022 12:52 PM EDT Livia Calix RN [facility] 10-17-2022 Functional Status N/A General Anaya [facility] 03-19-2022 Functional Status N/A [facility] Mental Status Date Assessment Result Facility 12-11-2022 Because of a physica l, mental, or emotional condition, do you have serious difficulty concentrating, remembering, or making decisions No 12/11/2022 12:52 PM EDT Livia Calix RN [facility] Clinical Notes 05-03-2021 to 08-07-2024 Telephone Encounter [...] include: ?8 oz (237 mL) of milk, hjvloof-cnuduzidgkgq-vorur milk, and calcium-fortifiedfruit juice. Calcium-fortified means that [...] ?Spinach (cooked), rhubarb, beets, sweet potatoes, and Tajik chard. ?Peanuts. ?Potato chips, paraguayan fries, and baked potatoes with skin on. ?Nuts and nut products. ?Chocolate. If you regularly take a diuretic medicine, make sure to eat at least 1 or 2 servings of fruits or vegetables that are high in potassium each day. These include: ?Avocado. ?Banana. ?[place], prune, carrot, or tomato juice. ?Baked potato. [...] magnesium, fish oil, or vitamin B6. Take nzyg-yks-tmfjnkr and prescription medicines only as told by [...] Casseroles. Pizza. Lasagna. Frozen meals. Potato chips. Malagasy fries. The items listed above may not [...] provider. Document Revised: 05/24/2022 Document Reviewed: 05/24/2022 Yvolver Patient Education 2023 [employer] Follow Up Care 07/03/2024 14:31:41 With:LIDIA JACOBS, Cecelia Jj, URL Address: [address] [place], [place] [address]- When: Unknown [facility] 08-07-2024 Note Patient Education Nephrology Dietary Guidelines [...] ? 8 oz (237 mL) of milk, ccuucvi-gymbhgigbzoo-yeqar milk, and calcium-fortifiedfruit juice. Calcium-fortified means that [...] Spinach (cooked), rhubarb, beets, sweet potatoes, and Tajik chard. ? Peanuts. ? Potato chips, paraguayan fries, and baked potatoes with skin on. ? Nuts and nut products. ? Chocolate. ??? If you regularly take a diuretic medicine, make sure to eat at least 1 or 2 servings of fruits or vegetables that are high in potassium each day. These include: ? Avocado. ? Banana. ? [place], prune, carrot, or tomato juice. ? Baked [...] fish oil, or vitamin B6. ??? Take upjf-cdd-kkcqecf and prescription medicines only as told by your health (more content not included)... [facility] 06-17-2024 Note Orthopedic Surgery Subjective Chief complaint: [...] CT of the right knee completed at [facility] which we do not have [...] well perfused extremiti (more content not included)... [facility] 05-18-2024 Note Orthopedic Surgery Subjective Chief complaint: [...] CT of the right knee completed at [facility] which we do not have [...] the right k (more content not included)... [facility] 04-10-2024 Miscellaneous Notes Patient brought in [employer] [...] office visit notes can be submitted via [employer] Medical Records. documented in this encounter [employer] 04-10-2024 Telephone encounter Note Patient brought in [...] office visit notes can be submitted via [facility] Medical Records. [facility] 03-03-2024 Miscellaneous Notes Patient called today to follow up on his request for a written statement stating that provider feels that patient is totally disabled. 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 documented in this encounter [facility] 03-03-2024 Telephone encounter Note Patient called today to follow up on his request for a written statement stating that provider feels that patient is totally disabled. 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 [facility] 02-13-2024 History of Present illness Narrative [facility] [address] [place] [address] Patient: Sukhdeep Simental Sex: male : 1965 Age: 58 y.o. PCP: BLAYNE ISABEL MD 02/13/2024 Sukhdeep Simental is here for a(n) follow up for his [facility] work injury. 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 Chief Complaint Patient presents with Back Pain [facility] HPI: 12/07/2022 L2/3 fusion and revised L3/4, S1 at [facility] per patient. Bilateral SI joint injection on 04/17/2021 with 10% relief, pain is worse. 07/07/21 Bilateral L3/4 Medial branch block with no relief. right L 3, 4 nerve root injection on 09/01/2021 with no relef. Back Pain This is a chronic problem. The current episode started more than 1 year ago (surgery 10/16/18 discectomy and 07/10/2019 fusion in [place]). The problem occurs constantly. The problem is [...] disorder Claustrophobia Diabetes mellitus type 2, controlled ([facility]) Fractures Hyperlipidemia Hypertension Joint pain Low back pain Major depression Obesity Osteoarthritis Pulmonary embolism ([facility]) Seasonal allergies Sleep apnea does not use machine Sleep apnea Visual impairment glasses Past Surgical History: Procedure Laterality Date ANKLE SURGERY spurs removed INJECTION BLOCK EPIDURAL CAUDAL STEROID N/A 10/27/2021 Performed by Darren Lackey MD at [facility] INJECTION BLOCK NERVE MEDIAL BRANCH: bilat L 3/4 Bilateral 07/07/2021 Performed by Darren Lackey MD at [facility] INJECTION BLOCK SACROILIAC JOINT Bilateral 04/17/2021 Performed by Darren Lackey MD at [facility] SPINE TRANSFORAMINAL: right L 3,4 Nroot Right 09/01/2021 Performed by Darren Lackey MD at [facility] JOINT REPLACEMENT knees- right x2, left x1 KNEE SURGERY rt knee inf removed tka added rods LITHOTRIPSY LUMBAR DISCECTOMY L4-5 Left 10/16/2018 Performed by Suzanne Silverio DO at [facility] STOMACH SURGERY 04/2021 sleeve Allergies Allergen [...] Strain: Low Risk (03/28/2022) Re[facility] from [facility] Overall Financial Resource Strain (CARDIA) Difficulty of Paying Living Expenses: Not hard at all Food Insecurity: No Food Insecurity (12/05/2023) Hunger Screening Food Insecurity - Worry: Never True Food Insecurity - Inability: Never True Transportation Needs: Unknown (03/28/2022) Received from [facility], [facility] PRAPARE - Transportation Lack of Transportation (Medical): No Lack of Transportation (Non-Medical): Not on file Physical Activity: Inactive (12/01/2021) Received from [facility], [facility] Exercise Vital Sign Days of Exercise per Week: 0 days Minutes of Exercise per Session: 20 min Stress: No Stress Concern Present (12/01/2021) Received from [facility], [facility] [place] [employer] [employer] Occupational Health - Occupational Stress Questionnaire Feeling of Stress : Not at all Social Connections: Moderately Isolated (12/01/2021) Received from [facility], [facility] Social Connection and Isolation Panel [NHANES] Frequency of Communication with Friends and Family: More than three times a week Frequency of Social Gatherings with Friends and Family: Once a week Attends Oriental Orthodox Services: Never Active Member of Clubs or Organizations: No Attends Club or Organization Meetings: Never Marital Status: Interpersonal Safety: Unknown (04/18/2023) Received from [facility] [place] Safety & Environment Fear of Current or Ex-Partner: Not on file Emotionally Abused: Not on file Physically Abused: Not on file Sexually Abused: Not on file Physically or Sexually Abused: Not on file Housing Instability: Unknown (03/28/2022) Received from [facility], [facility] Housing Stability Vital Sign Unable to [...] Agustin 02/13/24 1603 documented in this encounter [facility] 12-05-2023 History of Present illness Narrative [facility] [address] [place] [address] Patient: Sukhdeep Simental Sex: male : 1965 Age: 58 y.o. PCP: BLAYNE ISABEL MD 12/05/2023 Sukhdeep Simental is here for a(n) follow up for his [facility] work injury. He reports he remains about the same as last visit. Chief Complaint Patient presents with Back Pain HPI: 12/07/2022 L2/3 fusion and revised L3/4, S1 at [facility] per patient. Bilateral SI joint injection on 04/17/2021 with 10% relief, pain is worse. 07/07/21 Bilateral L3/4 Medial branch block with no relief. right L 3, 4 nerve root injection on 09/01/2021 with no relef. Back Pain This is a chronic problem. The current episode started more than 1 year ago (surgery 10/16/18 discectomy and 07/10/2019 fusion in [place]). The problem occurs constantly. The problem is [...] disorder Claustrophobia Diabetes mellitus type 2, controlled ([facility]) Fractures Hyperlipidemia Hypertension Joint pain Low back pain Major depression Obesity Osteoarthritis Pulmonary embolism ([facility]) Seasonal allergies Sleep apnea does not use machine Sleep apnea Visual impairment glasses Past Surgical History: Procedure Laterality Date ANKLE SURGERY spurs removed INJECTION BLOCK EPIDURAL CAUDAL STEROID N/A 10/27/2021 Performed by Darren Lackey MD at [facility] INJECTION BLOCK NERVE MEDIAL BRANCH: bilat L 3/4 Bilateral 07/07/2021 Performed by Darren Lackey MD at [facility] INJECTION BLOCK SACROILIAC JOINT Bilateral 04/17/2021 Performed by Darren Lackey MD at [facility] INJECTION SPINE TRANSFORAMINAL: right L 3,4 Nroot Right 09/01/2021 Performed by Darren Lackey MD at [facility] JOINT REPLACEMENT knees- right x2, left x1 KNEE SURGERY rt knee inf removed tka added rods LITHOTRIPSY LUMBAR DISCECTOMY L4-5 Left 10/16/2018 Performed by Suzanne Silverio DO at [facility] STOMACH SURGERY 04/2021 sleeve Allergies Allergen [...] Strain: Low Risk (03/28/2022) Received from [facility], [facility] Overall Financial Resource Strain (CARDIA) Difficulty of Paying Living Expenses: Not hard at all Food Insecurity: No Food Insecurity (12/05/2023) Hunger Screening Food Insecurity - Worry: Never True Food Insecurity - Inability: Never True Transportation Needs: Unknown (03/28/2022) Received from [facility], [facility] PRAPARE - Transportation Lack of Transportation (Medical): No Lack of Transportation (Non-Medical): Not on file Physical Activity: Inactive (12/01/2021) Received from [facility] Exercise Vital Sign Days of Exercise per Week: 0 days Minutes of Exercise per Session: 20 min Stress: No Stress Concern Present (12/01/2021) Received from [facility], [facility] [place] [employer] [employer]ational Health - Occupational Stress Questionnaire Feeling of Stress : Not at all Social Connections: Moderately Isolated (12/01/2021) Received from [facility], [facility] Social Connection and Isolation Panel [NHANES] Frequency of Communication with Friends and Family: More than three times a week Frequency of Social Gatherings with Friends and Family: Once a week Attends Oriental Orthodox Services: Never Active Member of Clubs or Organizations: No Attends Club or Organization Meetings: Never Marital Status: Interpersonal Safety: Unknown (04/18/2023) Received from [facility] Safety & Environment Fear of Current or Ex-Partner: Not on file Emotionally Abused: Not on file Physically Abused: Not on file Sexually Abused: Not on file Physically or Sexually Abused: Not on file Housing Instability: Unknown (03/28/2022) Received from [facility], [facility] Housing Stability Vital Sign Unable to Pay for Housing in the Last Year: Not on file Number of Places Lived in the Last Year: Not on file In the last 12 months, was there a time when you did not have a steady place to sleep or slept in a long-term (including now)?: No Review of Systems Constitutional: [...] Agustin 12/12/23 0942 documented in this encounter [facility] 10-07-2023 Telephone encounter Note Pt phoned to ensure todays appt was via phone as noted in appt. Pt unable to manage computer. [facility] 10-07-2023 Miscellaneous Notes Pt phoned to ensure todays appt was via phone as noted in appt. Pt unable to manage computer. documented in this encounter [facility] 10-04-2023 Telephone encounter Note [place] report XR Lumbar Spine 2-3v scanned to Epic [facility] 10-04-2023 Miscellaneous Notes [place] report XR Lumbar Spine 2-3v scanned to Epic documented in this encounter [facility] 08-15-2023 History of Present illness Narrative [facility] [address] [place] [address] Patient: Sukhdeep Simental Sex: male : 1965 Age: 57 y.o. PCP: BLAYNE ISABEL MD 08/15/2023 Sukhdeep Simental is here for a(n) follow up for his [facility] work injury. He reports he has pain higher than before surgery. Chief Complaint Patient presents with Back Pain HPI: 12/07/2022 L2/3 fusion and revised L3/4, S1 at [facility] per patient. Bilateral SI joint injection on 04/17/2021 with 10% relief, pain is worse. 07/07/21 Bilateral L3/4 Medial branch block with no relief. right L 3, 4 nerve root injection on 09/01/2021 with no relef. Back Pain This is a chronic problem. The current episode started more than 1 year ago (surgery 10/16/18 discectomy and 07/10/2019 fusion in [place]). The problem occurs constantly. The problem has [...] disorder Claustrophobia Diabetes mellitus type 2, controlled ([facility]) Fractures Hyperlipidemia Hypertension Joint pain Low back pain Major depression Obesity Osteoarthritis Pulmonary embolism ([facility]) Seasonal allergies Sleep apnea does not use machine Sleep apnea Visual impairment glasses Past Surgical History: Procedure Laterality Date ANKLE SURGERY spurs removed INJECTION BLOCK EPIDURAL CAUDAL STEROID N/A 10/27/2021 Performed by Darren Lackey MD at [facility] INJECTION BLOCK NERVE MEDIAL BRANCH: bilat L 3/4 Bilateral 07/07/2021 Performed by Darren Lackey MD at [facility] INJECTION BLOCK SACROILIAC JOINT Bilateral 04/17/2021 Performed by Darren Lackey MD at [facility] SPINE TRANSFORAMINAL: right L 3,4 Nroot Right 09/01/2021 Performed by Darren Lackey MD at [facility] JOINT REPLACEMENT knees- right x2, left x1 KNEE SURGERY rt knee inf removed tka added rods LITHOTRIPSY LUMBAR DISCECTOMY L4-5 Left 10/16/2018 Performed by Suzanne Silverio DO at [facility] STOMACH SURGERY 04/2021 sleeve Allergies Allergen [...] Low Risk (03/28/2022) Received from [facility], [facility] Overall Financial Resource Strain (CARDIA) Difficulty of Paying Living Expenses: Not hard at all Food Insecurity: No Food Insecurity (08/15/2023) Hunger Screening Food Insecurity - Worry: Never True Food Insecurity - Inability: Never True Transportation Needs: Unknown (03/28/2022) Received from [facility], [facility] PRAPARE - Transportation Lack of Transportation (Medical): No Lack of Transportation (Non-Medical): Not on file Physical Activity: Inactive (12/01/2021) Received from [facility], [facility] Exercise Vital Sign Days of Exercise per Week: 0 days Minutes of Exercise per Session: 20 min Stress: No Stress Concern Present (12/01/2021) Received from [facility], [facility] [place] of Occupational Health - Occupational Stress Questionnaire Feeling of Stress : Not at all Social Connections: Moderately Isolated (12/01/2021) Received from [facility], [facility] Social Connection and Isolation Panel [NHANES] Frequency of Communication with Friends and Family: More than three times a week Frequency of Social Gatherings with Friends and Family: Once a week Attends Oriental Orthodox Services: Never Active Member of Clubs or Organizations: No Attends Club or Organization Meetings: Never Marital Status: Interpersonal Safety: Unknown (04/18/2023) Received from [facility] [place] Safety & Environment Fear of Current or Ex-Partner: Not on file Emotionally Abused: Not on file Physically Abused: Not on file Sexually Abused: Not on file Physically or Sexually Abused: Not on file Housing Instability: Unknown (03/28/2022) Received from [facility], [facility] Housing Stability Vital Sign Unable to Pay for Housing in the Last Year: Not on file Number of Places Lived in the Last Year: Not on file In the last 12 months, was there a time when you did not have a steady place to sleep or slept in a long-term (including now)?: No Review of Systems Constitutional: [...] the presence of SCARLET AGUSTIN by Sonal Rordiguez CNA. Provider Statement: I, SCARLET AGUSTIN, personally performed the services described in the documentation, as scribed by Sonal Rodriguez CNA in my presence, and it is both accurate and complete. Sonal Rodriguez CNA 08/15/23 1228 SCARLET Agustin 08/15/23 1311 documented in this encounter [facility] 07-30-2023 Telephone encounter Note Called Sukhdeep, no answer, left VM [facility] Work Phone: 07-30-2023 Miscellaneous Notes Called Sukhdeep, no answer, left VM Have sent XR Lumbar order to [facility] fax # [phone] as requested from patient. Pt phoned regarding upcoming visit 10/06 Advaxis comp appt. Pt unable to manage virtual visit asking for telephone visit. Pt asking how far in advance to do X-Ray. Pt will have X-Ray done locally at [facility]. Please call and advise Pt phone # [phone] documented in this encounter [facility] 07-30-2023 Telephone encounter Note Have sent XR Lumbar order to [facility] fax # [phone] as requested from patient. [facility] 07-30-2023 Telephone encounter Note Pt phoned regarding upcoming visit 10/06 [employer] appt. Pt unable to manage virtual visit asking for telephone visit. Pt asking how far in advance to do X-Ray. Pt will have X-Ray done locally at [facility]. Please call and advise Pt phone # [phone] [facility] 07-26-2023 Telephone encounter Note Office note faxed. Faxed verification received. [facility] 07-26-2023 Miscellaneous Notes Office note faxed. Faxed verification received. Printed for review. Received request from [employer] needing more info, in epic for review. documented in this encounter [facility] 07-23-2023 Telephone encounter Note Printed for review. [facility] 07-23-2023 Telephone encounter Note Received request from [employer] needing more info, in [employer] for review. [facility] 05-08-2023 History of Present illness Narrative SPINE SURGERY FOLLOW UP This is a virtual visit using Audio Only Visit. It required patient-provider interaction for the medical decision making as documented below. I have communicated my name and active licensure. The patient's identity and physical location were verified at the time of this visit. Either the patient or their legal inside technical sales representative has been informed of the [...] visit. Either the patient or their legal inside technical sales representative has been informed of the [...] 4:00 PM PAGER: documented in this encounter [facility] 05-08-2023 Miscellaneous Notes A letter was received from the law office of Jasper Loredo. 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 The information was reviewed by Nadiya Flynn PA-C and he would not like to amend the [facility] claim to allow the above mentioned condition. Call placed to the office of Jasper Loredo to inform him of provider's decision. No answer at the time call was made. Message left. documented in this encounter [facility] 05-08-2023 Telephone encounter Note A letter was received from the law office of Jasper Loredo. 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 The information was reviewed by Nadiya Flynn PA-C and he would not like to amend the [facility] claim to allow the above mentioned condition. Call placed to the office of Jasper Loredo to inform him of provider's decision. No answer at the time call was made. Message left. [facility] 05-07-2023 Miscellaneous Notes Call received from Hannah, patient's rifle case repairer. She called as patient's MEDCO-14 is expiring soon. Hannah is informed that patient called about this and an updated MEDCO-14 was completed and faxed on 05/03/2023. Hannah states she is his rifle case repairer and would like information sent to her [...] will be 05/15/2023-11/14/2023. documented in this encounter [facility] 05-07-2023 Telephone encounter Note Call received from Hannah, patient's rifle case repairer. She called as patient's MEDCO-14 is expiring soon. Hannah is informed that patient called about this and an updated MEDCO-14 was completed and faxed on 05/03/2023. Hannah states she is his rifle case repairer and would like information sent to her [...] new dates for restrictions will be 05/15/2023-11/14/2023. [facility] 04-18-2023 Miscellaneous Notes Signed form faxed to number requested. Faxed verification received. Printed for review and signature. Received PT Certification from [facility]. Scanned to chart for provider signature. documented in this encounter [facility] 04-16-2023 Miscellaneous Notes Received imaging disc by mail from [facility]. Disc contains CT Lumbar spine done on 04/03/23. Will place in nurse folder in [address]. documented in this encounter [facility] 04-09-2023 Miscellaneous Notes Called & spoke with Sukhdeep Asked him to obtain imaging disc & send to our office. Will require images to be uploaded to assess for bony fusion at previous surgical site and adjacent segment disease. Received CT Lumbar Spine Report from [facility], in epic to review. documented in this encounter [facility] 02-14-2023 History of Present illness Narrative [facility] [address] [place] [address] Patient: Sukhdeep Simental Sex: male : 1965 Age: 57 y.o. PCP: BLAYNE ISABEL MD 02/14/2023 Sukhdeep Simental is here for a 6 month follow up for his [facility] work injury. Chief Complaint Patient presents with Back Pain HPI: 12/07/2022 L2/3 fusion and revised L3/4, S1 at [facility] per patient. Bilateral SI joint injection on 04/17/2021 with 10% relief, pain is worse. 07/07/21 Bilateral L3/4 Medial branch block with no relief. right L 3, 4 nerve root injection on 09/01/2021 with no relef. Back Pain This is a chronic problem. The current episode started more than 1 year ago (surgery 10/16/18 discectomy and 07/10/2019 fusion in [place]). The problem occurs constantly. The problem has [...] disorder Claustrophobia Diabetes mellitus type 2, controlled ([facility]) Fractures Hyperlipidemia Hypertension Joint pain Low back pain Major depression Obesity Osteoarthritis Pulmonary embolism ([facility]) Seasonal allergies Sleep apnea does not use machine Sleep apnea Visual impairment glasses Past Surgical History: Procedure Laterality Date ANKLE SURGERY spurs removed INJECTION BLOCK EPIDURAL CAUDAL STEROID N/A 10/27/2021 Performed by Darren Lackey MD at [facility] INJECTION BLOCK NERVE MEDIAL BRANCH: bilat L 3/4 Bilateral 07/07/2021 Performed by Darren Lackey MD at [facility] INJECTION BLOCK SACROILIAC JOINT Bilateral 04/17/2021 Performed by Darren Lackey MD at [facility] INJECTION SPINE TRANSFORAMINAL: right L 3,4 Nroot Right 09/01/2021 Performed by Darren Lackey MD at [facility] JOINT REPLACEMENT knees- right x2, left x1 KNEE SURGERY rt knee inf removed tka added rods LITHOTRIPSY LUMBAR DISCECTOMY L4-5 Left 10/16/2018 Performed by Suzanne Silverio DO at [facility] STOMACH SURGERY 04/2021 sleeve Allergies Allergen [...] CNA 02/14/23 1237 Sonal Rodriguez CNA 02/14/23 1252 SCARLET Agustin 02/21/23 1156 documented in this encounter [facility] 02-07-2023 Miscellaneous Notes C9 for physical therapy faxed to [facility]. Faxed verification received. documented in this encounter [facility] 02-07-2023 History of Present illness Narrative SPINE [...] which included preparing to see the patient, uckl-im-yxuf patient care, completing clinical documentation, obtaining and/or reviewing separately obtained history, performing a medically appropriate examination, counseling and educating the patient/family/caregiver, and ordering medications, tests, or procedures. SIGNATURE: Riddhi Goss APRN.CNP PATIENT NAME: Sukhdeep Simental DATE: February 07, 2023 TIME: 2:39 PM PAGER: documented in this encounter [facility] 02-04-2023 Hospital Discharge instructions Patient Education 02/04/2023 [...] include: ?8 oz (237 mL) of milk, yymxybp-ntjxkqjqnyhk-ixkuk milk, and calcium-fortifiedfruit juice. Calcium-fortified means that [...] ?Spinach (cooked), rhubarb, beets, sweet potatoes, and Tajik chard. ?Peanuts. ?Potato chips, paraguayan fries, and baked potatoes with skin on. ?Nuts and nut products. ?Chocolate. If you regularly take a diuretic medicine, make sure to eat at least 1 or 2 servings of fruits or vegetables that are high in potassium each day. These include: ?Avocado. ?Banana. ?[place], prune, carrot, or tomato juice. ?Baked potato. [...] magnesium, fish oil, or vitamin B6. Take qcnd-ddo-jifscge and prescription medicines only as told by [...] Casseroles. Pizza. Lasagna. Frozen meals. Potato chips. Malagasy fries. The items listed above may not [...] provider. Document Revised: 05/24/2022 Document Reviewed: 05/24/2022 [employer] Patient Education 2022 [employer]. Follow Up Care 07/27/2022 14:20:34 With:LIDIA JACOBS, Cecelia Jj, URL Address: [facility] [address] , [place] [address]- When:Within 1 Year(s) Comments:w/CT AP w/o Con [facility] 01-23-2023 Miscellaneous Notes Received fax from [employer]. Scanned into [employer]. Also received a RTW from [employer]. Scanned into [employer] as well. 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 [...] with an update. documented in this encounter [facility] 12-20-2022 History of Present illness Narrative SPINE [...] which included preparing to see the patient, litx-nl-veal patient care, completing clinical documentation, obtaining and/or reviewing separately obtained history, performing a medically appropriate examination, counseling and educating the patient/family/caregiver, and ordering medications, tests, or procedures. SIGNATURE: Singh Morgan PA-C PATIENT NAME: Sukhdeep Simental DATE: December 20, 2022 TIME: 2:58 PM PAGER: documented in this encounter [facility] 12-17-2022 Miscellaneous Notes Forms completed and signed by provider. Faxed to number provided and and Sukhdeep notified via voice mail, as requested. Scanned into [employer]. Form completed. Awaiting signature. Printed for review. Received FMLA form by fax from patient's . Scanned to patient's chart for review and completion. documented in this encounter [facility] 12-13-2022 Miscellaneous Notes Spoke with patient [...] a kenya. Xi Schrader PA-C Patient at [phone] is requesting a call back. He had back surgery on 12-07. He states for the past 2 days his right ring and little finger has been numb. documented in this encounter [facility] 12-12-2022 Miscellaneous Notes Spoke with pharmacy and was informed that medication is approved. No prior authorization needed. Patient called stating pharmacy needs a prior authorization for oxycodone 15 mg. I called the pharmacy on 12/12/2022 at 9:40 AM. Insurance will not pay for the frequency of medication written. They will cover q12h. Prescription changed to oxycodone 15 mg 12h. [id number] [place] [address] - [address] - [phone] Pharmacist at [facility] wanted to inform the office that this patient already takes Percocet 10-325 every 6 hours, picked it up 13 days ago. They tried running the Percocet but his insurance will not cover both. Please call them back with new instructions. documented in this encounter [facility] 12-11-2022 Note HNO ID: [id number] Author: Lulu Oviedo MD Service: General Internal [...] 10 mg tab( (more content not included)... [facility] 12-10-2022 Note HNO ID: [id number] Author: Lulu Oviedo MD Service: General Internal [...] 10% iv bolu (more content not included)... [facility] 12-09-2022 Note HNO ID: [id number] Author: Alyssa Tim APRN.TAPEMAN Service: Neurosurgery Author Type: Nurse Practitioner Type: [...] is currently not well controlled despite Dilaudid STICK WELDER and Toradol. He denies new weakness, numbness, [...] mg ORAL q 8 H Alyssa Tim APRN.TAPEMAN 1,000 mg at 12/09/22 0559 aluminum-magnesium hydroxide-simethicone 200-200-20 mg/5 mL 30 mL 30 mL ORAL q 6 H PRN Archual, Alyssa, DIRECTOR OF DATABASE MARKETING.TAPEMAN bisacodyl EC 10 mg tab(s) (DULCOLAX) 10 mg ORAL DAILY PRN Archual, Alyssa, DIRECTOR OF DATABASE MARKETING.TAPEMAN dextrose 40 % 15 g 15 g ORAL PRN Archual, Alyssa, DIRECTOR OF DATABASE MARKETING.TAPEMAN Or glucagon 1 mg injection 1 mg INTRAMUSCULAR PRN Archual, Alyssa, DIRECTOR OF DATABASE MARKETING.TAPEMAN Or dextrose 10% iv bolus 12.5 g INTRAVENOUS PRN Archual, Alyssa, DIRECTOR OF DATABASE MARKETING.TAPEMAN docusate sodium 100 mg cap(s) (COLACE) 100 mg ORAL BID Thomas Mathew MD 100 mg at 12/09/22 0821 doxazosin 4 mg tab(s) (CARDURA) 4 mg ORAL DAILY Thomas Mathew MD 4 mg at 12/09/22 0821 fentaNYL STICK WELDER 20 mcg/mL in NaCl 0.9% 100 mL (SUBLIMAZE) INTRAVENOUS CONTINUOUS Archual, Alyssa, DIRECTOR OF DATABASE MARKETING.TAPEMAN ferrous sulfate 325 mg tab(s) 325 mg ORAL DAILY Archual, Alyssa, DIRECTOR OF DATABASE MARKETING.TAPEMAN 325 mg at 12/09/22 0821 heparin 5,000 Units injection 5,000 Units SUBCUTANEOUS q 12 H Archual, Alyssa, DIRECTOR OF DATABASE MARKETING.TAPEMAN 5,000 Units at 12/09/22 0821 hydrOXYzine HCl 25 mg tab(s) (ATARAX) 25 mg ORAL q 6 H PRN Archual, Alyssa, DIRECTOR OF DATABASE MARKETING.TAPEMAN insulin lispro injection (rapid acting) (HumaLOG) SUBCUTANEOUS w MEALS AND HS Archual, Alyssa, DIRECTOR OF DATABASE MARKETING.TAPEMAN 1 Units at 12/07/22 1803 lactated ringers iv infusion 75 mL/hr INTRAVENOUS CONTINUOUS Thomas Mathew MD 75 mL/hr at 12/09/22 1018 75 mL/hr at 12/09/22 1018 methocarbamol 750 mg tab(s) (ROBAXIN) 750 mg ORAL QID Archual, Alyssa, DIRECTOR OF DATABASE MARKETING.TAPEMAN NaCl 0.9% iv flush bag 20 mL INTRAVENOUS PRN Thomas Mathew MD naloxone 0.1 mg injection (NARCAN) 0.1 mg INTRAVENOUS q 2 MIN PRN Archual, Alyssa, DIRECTOR OF DATABASE MARKETING.TAPEMAN omeprazole 20 mg cap(s) (PriLOSEC) 20 mg [...] packet 17 g ORAL DAILY Archual, Alyssa, DIRECTOR OF DATABASE MARKETING.TAPEMAN 17 g at 12/09/22 0821 simvastatin 10 mg tab(s) (ZOCOR) 10 mg ORAL AT BEDTIME Thomas Mathew MD 10 mg at 12/08/222019 tamsulosin 0.4 mg cap(s) (FLOMAX) 0.4 mg ORAL DAILY Thomas Mathew MD 0.4 mg at 12/09/22 08 traZODone 150 mg tab(s) (DESYREL) 150 mg ORAL AT BEDTIME Archual, Alyssa, DIRECTOR OF DATABASE MARKETING.TAPEMAN 150 mg at 12/08/222019 valsartan 80 mg tab(s) (DIOVAN) 80 mg ORAL DAILY Archual, Alyssa, DIRECTOR OF DATABASE MARKETING.TAPEMAN 80 mg at 12/09/22 08 ASSESSMENT AND [...] pain control, Pain management consulted, started Fentanyl STICK WELDER today due to continued uncontrolled pain, Robaxin and Tylenol scheduled, no further Toradol due to CKD 3. -Check postop lumbar XR today -Medicine consult for post-operative medical management -Discharge planning, anticipate discharge home in 1-2 more days. Plan of care discussed with Dr. Mathew via phone. Medication and Non-Pharmacologic VTE Prophylaxis/Anticoagulants 10/25/21 1215 vte pharmacologic prophylaxis contraindicated (fl,oh) (more content not included)... [facility] 12-08-2022 Note HNO ID: [id number] Author: Alyssa Tim APRN.OLGA Service: Neurosurgery Author [...] on POD #2 -Post-operative pain control, Dilaudid STICK WELDER discontinued. Continue Tylenol, Toradol IV, and Robaxin PRN. Start oxycodone every 3 hours PRN and Dilaudid IV PRN. -Check postop XR tomorrow. -Medicine consult for post-operative medical management -Discharge planning, anticipate discharge home in 1-2 more days. Plan of care discussed with Dr Hopper via phone. Medication and Non-Pharmacologic VTE Prophylaxis/Anticoagulants 10/25/21 1215 vte pharmacologic prophylaxis contraindicated (in,tn) 10/25/21 1215 pneumatic compression stockings (in,tn) 10/25/21 1215 activity - mobilize patient (in,tn) VTE Prophylaxis: VTE prophylaxis appropriate SIGNATURE: Alyssa Tim APRN.CNP DATE: December 08, 2022 TIME: 1:50 PM [facility] 12-08-2022 Note HNO ID: [id number] Author: Note, Interface Service: ? Author Type: ? Type: Progress Notes Filed: 12/08/2022 3:59 AM Note Text: Epic Scheduled Downtime: 12/08/2022 1:00:00 AM to 12/08/2022 1:28:00 AM [facility] 12-07-2022 Note HNO ID: [id number] Author: Aaron Noriega AA Service: Anesthesiology Author Type: Automotive Collision Estimator Type: Anesthesia Procedure Notes Filed: 12/07/2022 8:04 [...] December 07, 2022 TIME: 8:03 AM CSN: [id number] [facility] 12-06-2022 Evaluation note Encounter Date Diagnosis [...] has adequate iron stores. 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 12/07/2022 documented as of this encounter (statuses as of 12/18/2022) [address]27-2023 History of Past illness Narrative* Problem Noted Date Diagnosed Date Resolved Date Secondary hyperparathyroidism 11/21/2022 11/21/2022 11/21/2022 Corneal edema, unspecified 12/10/2013 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 12/07/2022 documented as of this encounter (statuses as of 12/21/2022) [address]27-2023 History of Past illness Narrative* Problem Noted Date Diagnosed Date Resolved Date Secondary hyperparathyroidism 11/21/2022 11/21/2022 11/21/2022 Corneal edema, unspecified 12/10/2013 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 12/07/2022 documented as of this encounter (statuses as of 12/21/2022) [address]-2023 History of Past illness Narrative* Problem Noted Date Diagnosed Date Resolved Date Secondary hyperparathyroidism 11/21/2022 11/21/2022 11/21/2022 Corneal edema, unspecified 12/10/2013 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 12/07/2022 documented as of this encounter (statuses as of 01/24/2023) [address]27-2023 History of Past illness Narrative* Problem Noted Date Diagnosed Date Resolved Date Secondary hyperparathyroidism 11/21/2022 11/21/2022 11/21/2022 Corneal edema, unspecified 12/10/2013 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 12/07/2022 documented as of this encounter (statuses as of 02/08/2023) [address]-2023 History of Past illness Narrative* Problem Noted Date Diagnosed Date Resolved Date Secondary hyperparathyroidism 11/21/2022 11/21/2022 11/21/2022 Corneal edema, unspecified 12/10/2013 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 12/07/2022 documented as of this encounter (statuses as of 02/09/2023) [facility] History of Past illness Narrative* Problem Noted Date Diagnosed Date Resolved Date Secondary hyperparathyroidism 11/21/2022 11/21/2022 11/21/2022 Corneal edema, unspecified 12/10/2013 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 12/07/2022 documented as of this encounter (statuses as of 04/09/2023) [facility] History of Past illness Narrative* Problem Noted Date Diagnosed Date Resolved Date Secondary hyperparathyroidism 11/21/2022 11/21/2022 11/21/2022 Corneal edema, unspecified 12/10/2013 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 12/07/2022 documented as of this encounter (statuses as of 04/18/2023) [facility] History of Past illness Narrative* Problem Noted Date Diagnosed Date Resolved Date Secondary hyperparathyroidism 11/21/2022 11/21/2022 11/21/2022 Corneal edema, unspecified 12/10/2013 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 Given both written and verbal instructions re : Skin prep, wound care, pain management and post op restrictions. Provided to patient: [facility] Surgery Guide, skin prep supplies, Spine Surgery Pre/post op education packet. Yes Reviewed with patient to report to the registration desk for surgery? Yes. Reviewed with the patient that a surgery patient access representative will call the working day prior [...] lab work : To be completed at [facility]. Questions answered. Patient verbalizes understanding via teach back. Additional comments : Informed to call with any questions or concerns. Juan Pablo Nova RN [facility] History of Present illness Narrative* Thomas Mathew [...] TIME: 2:20 PM PAGER: documented in this [facility]08-22-2023 NoteHNO ID: [id number] Author: Sonya Wilhelm APRN.TAPEMAN Service: ? Author Type: Nurse Practitioner Type: Progress Notes Filed: 10/16/2022 4:03 PM Note Text: Per Triage: Sukhdeep Simental is a 57 year old male that requests evaluation of lumbar spine. Per review, they have symptoms of LBP Hip pain Leg pain (R) Numbness, Tingling Toes Trouble lifting leg (R) Prev surgery yes L4-S1 fusion in [facility] CMT: Injection Muscle relaxants, Zanaflex Studies [...] schedule with first available lumbar revision surgeon. [facility]08-22-2023 History of Present illness Narrative* Sonya Wilhelm APRN.TAPEMAN - 10/16/2022 3:51 PM EDT Per Triage: Sukhdeep Simental is a 57 year old male that requests evaluation of lumbar spine. Per review, they have symptoms of LBP Hip pain Leg pain (R) Numbness, Tingling Toes Trouble lifting leg (R) Prev surgery yes L4-S1 fusion in [facility] CMT: Injection Muscle relaxants, Zanaflex Studies [...] Simental Are you being referred by a Duson for Spine Health Provider or Pain Management Provider at [facility]? No If answer is YES please [...] facility where the MRI/CT/myelogram was completed: [facility] Address: Formerly named [facility] [place] [address] MRI/CT/myelogram viewable in Epic: No If not, please provide [phone] to fax in imaging reports for review. [...] injections and/or physical therapy was completed Injection [facility] Address: [address] [place] [address] Have you tried any other kinds of [...] of where the surgery was completed: 2019 [facility] Address: [address] [facility] [address] [place] [address] Additional Comments [phone] (Home Phone) documented in this [facility]07-27-2023 NoteHNO ID: [id number] Author: Adonis Lopez Service: ? Author Type: ? Type: Progress Notes Filed: 10/16/2022 4:03 PM Note Text: Patient name: Sukhdeep Simental Are you being referred by a Duson for Spine Health Provider or Pain Management Provider at [facility]? No If answer is YES please [...] facility where the MRI/CT/myelogram was completed: [facility] Address: [address] [place] [address] MRI/CT/myelogram viewable in Epic: No If not, please provide [phone] to fax in imaging reports for review. [...] injections and/or physical therapy was completed Injection [facility] Address: [address] [place] [address] Have you tried any other kinds of [...] of where the surgery was completed: 2019 [facility] Address: [address] [place] [address] Additional Comments [phone] (Home Phone)[facility]04-27-2023 Evaluation note* Encounter Date Diagnosis [...] will continue to monitor without any medications. [facility] [facility] Other 01-23-2023 Hospital Discharge instructions Patient Education [...] include: ?Spinach. ?Rhubarb. ?Beets. ?Potato chips and paraguayan fries. ?Nuts. If you regularly take a diuretic medicine, make sure to eat at least 1 2 fruits or vegetables high in potassium each day. These include: ?Avocado. ?Banana. ?[place], prune, carrot, or tomato juice. ?Baked potato. [...] Casseroles. Pizza. Lasagna. Frozen meals. Potato chips. Malagasy fries. Summary You can reduce your risk [...] 06/08/2011 Document Revised: 06/03/2019 Document Reviewed: 01/22/2017 [employer] Patient Education 2020 [employer]. Follow Up Care 03/15/2022 09:49:40 With:LIDIA JACOBS, Cecelia Jj, URL Address: [facility] [address] [place] [address]- When: Unknown [facility] 01-16-2023 NoteIndication: Renal mass. Comparison: 07/14/2021 exam. [...] Electronically authenticated by: CITLALI GIRON Date: 2022-03-12 18:03[facility]10-21-2022 Evaluation note* Encounter Date Diagnosis Assessment [...] be cultured for infection, gonorrhea, chlamydia, yeast. [facility] [facility] Other 08-31-2022 Evaluation note* Encounter Date Diagnosis [...] paraproteinemia due to the CKD and anemia. [facility] [facility] Other 04-01-2022 History of Present illness Narrative* [...] from the original note were not included. [employer] Progress Note Date: 05/26/2021 Patient name: Sukhdeep [...] Ok for d/c from cardiology standpoint. [employer] [phone] * Octavio Mcclellan, - 05/25/2021 5:42 PM [...] Foreman RN - 05/25/2021 8:32 AM EDT [employer] Documentation Note Admission Dx: S/P laparoscopic sleeve [...] on an annual basis Tona Foreman RN [employer] * Sonya Ramírez, DO - 05/25/2021 6:45 [...] 05/25/2021 at 6:45 AM Associated attestation - Octvaio Mcclellan DO - 05/25/2021 7:42 PM EDT [...] Day of Surgery/Procedure As a patient at [facility] you can expect quality medical and nursing care that is centered on your individual needs. Our goal is to make your surgical experience as comfortableas possible . Directions to the Surgery Center [facility] is located at [address] [place] [address]. Please pull into the Emergency parking lot and stop at the customer account representative ojeda. We offer free customer account representative service for all our surgery patients, if you choose not to have customer account representative parking we have additional parking across the street.You will enter the facility under the blue canopy/walkway following the [facility] sign. Please stop at the traffic i manager desk where you will be checked in by the staff. If you have any questions please call [phone]. Transportation after your procedure. You will need a friend or family member to drive you home after your procedure. Your cat driver must be18 years of age or [...] You may shave your face or neck. [place] your teeth but do not swallow water. [...] or the day of surgery, please call [phone], or [phone] documented in this [facility] [employer] Phone: 1(301) 614-936603-31-2022 Hospital Discharge instructions* Discharge Instr - KAMARI* Jenny Lentz RN - 05/25/2021 5:44 PM EDT PHYSICIAN SIGNATURE: * Additional Instructions* Jenny Lentz, RN - 05/26/2021 Discharge Instructions for Bariatric Surgery You had a Laparoscopic Sleeve Gastrectomy (46956) surgery to treat obesity. Recovery from this [...] scheduled appointment, please call the office at [phone]. Call Your Doctor If Any of the [...] sent through Care Everywhere. * Enoxaparin (Lovenox) (Guatemalan) * metoprolol (oral/injection) (Guatemalan) * acetaminophen and oxycodone (Guatemalan) documented in this [facility] Phone: 1(968) 804-817903-09-2022 Hospital Discharge instructions* Instructions* Etelvina Ledbetter APRN - TAPEMAN - 05/03/2021 Pre-operative Instructions Please arrive at [...] list you provided today, ACCORDING TO YOUR HOMOEOPATH, PLEASE HOLD ELIQUIS 3 DAYS PRIOR TO [...] public transportation ALONE is not acceptable. -Your cat driver must be 18 years of age [...] Day of Surgery/Procedure As a patient at [facility] you can expect quality medical and nursing care that is centered on your individual needs. Our goal is to make your surgical experience as comfortableas possible . Directions to the Surgery Center [facility] is located at [address] [place] [address]. Please pull into the Emergency/Surgery Center parking lot and stop at the [employer]ch ojeda. We offer free customer account representative service for all our surgery patients, if you choose not to have customer account representative parking we have additional parking across the [...] pharmacy bottles in a zip lock bag. [place] your teeth but do not swallow water. [...] DAY OF your surgery, you may call [phone] documented in this encounterLutheran HospitalMakstr Work Phone: evaluation + Plan note Future Appointments Appointment Date:07/16/2022 02:45:00 PM Scheduled Provider:Cecelia MURILLO MD Location:[facility] Appointment Type:URO Office Visit [facility] evaluation + Plan note Future Appointments Appointment Date:02/04/2023 09:15:00 AM Scheduled Provider:Cecelia MURILLO MD Location:[facility] Appointment Type:URO Office Visit General Surgery [place] Evaluation + Plan note Future Appointments Appointment Date:02/03/2024 10:30:00 AM Scheduled Provider:Cecelia MURILLO MD Location:[facility] Appointment Type:URO Office Visit Diagnostic Tests Pending * PSA Total 02/04/23 [facility] evaluation + Plan note Future Appointments Appointment Date:08/13/2025 10:45:00 AM Scheduled Provider:Cecelia MURILLO MD Location:[facility] Appointment Type:URO Office Visit Diagnostic Tests Pending * PSA Total 06/25/25 [facility] evaliecsaj note* Diagnosis Pre-op chest exam Pre-operative respiratory examination documented [facility] this encounter [facility] Work Phone: [email or web address] note* Diagnosis S/P laparoscopic sleeve gastrectomy- Primary documented in this encounter [facility] Phone: evaluation noteNo InformationNort Loyalis Other evaluation noteNo assessment information available [facility] Work Phone: Evaluation note* Diagnosis Lumbar adjacent segment disease with spondylolisthesis- Primary Lumbar adjacent segment disease with spondylolisthesis documented in this encounter [facility]* Diagnosis Lumbar adjacent segment disease with spondylolisthesis- Primary documented in this encounter [facility]* Diagnosis Lumbar adjacent segment disease with spondylolisthesis- Primary documented in this encounter [facility] note* Diagnosis Radiculopathy, lumbar region- Primary Thoracic or lumbosacral neuritis or radiculitis, unspecified documented in this encounter [facility]* Diagnosis Onset Date Resolution Status CKD (chronic kidney disease) stage 3, GFR 30-59 ml/min acute [id number] acute Hyperuricemia acute Microscopic hematuria acute Nephrolithiasis acute Secondary hyperparathyroidism acute Type 2 diabetes 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 acute [facility] Work Phone: [email or web address] note* Diagnosis Spinal stenosis, lumbar region, with neurogenic claudication- Primary [facility] in this encounter [facility]* Diagnosis Spinal stenosis, lumbar region, with neurogenic claudication- Primary documented in this encounter [facility]* Diagnosis Spinal stenosis, lumbar region, with neurogenic claudication- Primary documented in this encounter [facility] Narrative - Reported* Type Description [...] GASTRIC SLEEVE 04/2021 Hospitalization History SEE ABOVE [facility] Other [place] general Narrative - Reported* Type Description Date [...] REPLACEMENT 04/16 22 Hospitalization History SEE ABOVE [facility] Other Hospital course Narrative No data available for this section [facility] Hospital Discharge instructions No data available for this section General Surgery [place] InstructionsNot on filedocumented in this encounter [facility] filedocumented in this encounter [facility] on filedocumented in this encounter [facility]Not on filedocumented in this encounter [facility] No data available for this section [facility] reason for referral (narrative)* Diagnostic Procedure Only (Routine) - Pending Review Specialty Diagnoses / Procedures Referred By Enoch luna Referred To Contact XR IMAGING Diagnoses Lumbar adjacent segment disease with spondylolisthesis Procedures XR LUMBAR LIMITED 2V AP/LAT RADEX SPINE LUMBOSACRAL 2/3 VIEWS Singh Morgan PA-C [address] [id number] Xr Imaging [place] [address] Referral ID Status Reason Start Date Expiration Date Visits Requested Visits Authorized [id number] Pending Review Auto-Generat ed Referral 3 01/19/2024 1 1 [facility] for referral (narrative)* Diagnostic Procedure Only (Routine) - Pending Review Specialty Diagnoses / Procedures Referred By Enoch luna Referred To Contact XR IMAGING Diagnoses Radiculopathy, lumbar region Procedures XR LUMBAR LIMITED 2V AP/LAT RADEX SPINE LUMBOSACRAL 2/[place] [address] [place] [address] [place] [address] Referral ID Status Reason Start Date Expiration Date Visits Requested Visits Authorized [id number] Pending Review Auto-Generat ed Referral 05/08/2023 06/06/2024 1 1 [facility] for visit Narrative* Auth/Cert Specialty Diagnoses / Procedures Referred By Contac t Referred To Contact Diagnoses Morbid obesity (HCC) Type II diabetes circulatory disorder causing erectile dysfunction (HCC) Hypertension MORBID OBESITY, TYPE II DIABETES, HYPERTENSION Procedures GA LAP, JUAN RESTRICT PROC, LONGITUDINAL GASTRECTOMY XI ROBOTIC LAPOROSCOPIC GASTRECTOMY SLEEVE, LIVER BIOPSY, EGD- GI SCHEDULED Octavio Mcclellan DO [address] [place] [address] [address] [place] [address] Referral ID Status Reason Start Date Expiration Date Visits Re quested Visits Authorized [id number] 1 1 [employer] Phone: Advance Directives No Advanced Directives Records FoundDocuments on File Type Date Recorded Patient 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 Expl anation Advance Directives and Living Will Power of Mobile Electronics Installer Advance Directive Response Recorded Date/ Time Advance Directives No September 16 2:32pm Documents on File Type Date Recorded Patient 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 Technician Expl anation ACP-Advance Directive ACP-Power of Mobile Electronics Installer Documents on File Type Date Recorded Patient 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 Technician Expl anation ACP-Advance Directive ACP-Power of Mobile Electronics Installer Latest Code Status on File Code Status [...] retention in legs Alexandro Muhammad MD [address] [place] [address] Maite John MD [address] [place] [address] Scheduling Instructions . Specialty Diagnoses / Procedures Referred By Contac t Referred To Contact [facility] Diagnoses Lumbar adjacent segment disease with spondylolisthesis Procedures CONSULT TO [facility] ([facility] PAIN) OFFICE/OUTPATIENT [facility] 60-[place] [address] [address] [id number] Referral ID Status Reason Start Date Expiration Date Visits Requested Visits Authorized [id number] Pending Review PCP Requested Referral 11/05/2022 11/05/2023 1 1 Specialty Diagnoses / Procedures Referred By Contac t Referred To Contact [facility] Diagnoses Lumbar adjacent segment disease with spondylolisthesis Procedures CONSULT TO PHYSICAL THERAPY PHYSICAL THERAPY EVALUATION HIGH COMPLEX 45 MINS Riddhi Goss, DIRECTOR OF DATABASE MARKETING.TAPEMAN [address] [place] [address] [facility] [address] [place] [address] Referral ID Status Reason Start Date Expiration Date Visits Requested Visits Authorized [id number] Pending Review Auto-Generat ed Referral 3 02/07/2024 [...] has been treated in the past by kosher inspector as well as his PCP. They contribute [...] file Gets together: Not on file Attends rastafari service: Not on file Active member of [...] 01/08/2020 2:19 PM Patient: Sukhdeep Simental MR#: [id number] : 1965 Age: 54 y.o. 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 [...] []Chair,[]cane, []bracing Are you followed by a bond manager? [] [x] Name: Are you followed by [...] kidney disease) stage 3, GFR 30-59 ml/min [id number] Hyperuricemia Microscopic hematuria Nephrolithiasis Secondary hyperparathyroidism Type 2 diabetes mellitus with diabetic chronic kidney disease Discharge Instructions * Attachments The following attachments cannot be sent through Care Everywhere. * Back Pain (Guatemalan) documented in this encounter Additional Source Comments (unrecognized sect ion and content) No Status Records FoundNo Status Records FoundNo Status Records FoundNo Status Records FoundNo Status Records FoundNo Status Records FoundNo Status Records FoundNo Status Records FoundNo Status Records FoundNo Status Records FoundNo Status Records FoundNo Status Records Found INFORMATION SOURCE (unrecogn ized section and content) DATE CREATED AUTHOR 04/18/2019 [facility] DATE CREATED AUTHOR AUTHOR'S ORGANIZ ATION 06/10/2019 [facility] DATE CREATED AUTHOR AUTHOR'S ORGANIZ ATION 07/21/2021 [facility] DATE CREATED AUTHOR AUTHOR'S ORGANIZ ATION 10/22/2021 [facility] DATE CREATED AUTHOR AUTHOR'S ORGANIZ ATION 01/23/2022 [facility] DATE CREATED AUTHOR AUTHOR'S ORGANIZ ATION 08/04/2022 [facility] DATE CREATED AUTHOR AUTHOR'S ORGANIZ ATION 12/12/2022 [facility] DATE CREATED AUTHOR AUTHOR'S ORGANIZ ATION 07/27/2023 [facility] DATE CREATED AUTHOR AUTHOR'S ORGANIZ ATION 02/16/2024 [facility] DATE CREATED AUTHOR AUTHOR'S ORGANIZ ATION 06/19/2024 [facility] DATE CREATED AUTHOR AUTHOR'S ORGANIZ ATION 06/30/2024 [facility] DATE CREATED AUTHOR AUTHOR'S ORGANIZ ATION 08/10/2024 [facility] Reason for Visit (unrecogniz ed section and content) Status Reason Specialty Diagnoses / Procedures Referred By Contact Referred To Contact Pending Review Diagnoses Hx of total knee arthroplasty, right Procedures XR BONE LENGTH STUDY Alexandro Muhammad MD [address] [place] [address] Reason Comments Pain Status Reason Specialty Diagnoses / Procedures Referred By Contact Referred To Contact Closed Cardiovascular Medicine Diagnoses Localized edema Procedures ECHOCARDIOGRAM GA ECHO HEART XTHORACIC,COMPLETE W DOPPLER Suzanne Pruett MD [address] [place] [address] Horace Buc Echocardiograph y [address] [place] [address] Reason Comments Back Pain Lower back pain s/p slip on ice Buttocks Pain Rt buttocks pain Reason Comments New Patient Lumbar spine Specialty Diagnoses / Procedures Referred By Contac t Referred To Contact Neurosurgery / NEUROSURGERY Diagnoses lumbar spine eHealth records requested Procedures REFERRAL TO [facility] FINANCIAL COUNSELOR NEW SPINE SURGICAL TRIAGE Jason Miller [address] [place] [address] [place] [address] [place] [address] Referral ID Status Reason Start Date Expiration Date V isits Requested Visits Authorized [id number] Outside PCP 11/05/2022 01/04/2023 99 99 Reason [...] POST OP NEUS/NRES Self Xi Schrader PA-C [address] [place] [id number] Referral ID Status Reason Start Date Expiration Date Visits Re quested Visits Authorized [id number] Closed 12/20/2022 02/24/2023 1 1 Reason Comments Received Outside Medical Records promedi ca Reason Comments Follow Up Specialty Diagnoses / Procedures Referred By Contac t Referred To Contact Neurosurgery / NEUROSURGERY Diagnoses Follow-up exam Follow Up Procedures OFFICE/OUTPATIENT ESTABLISHED MOD MDM 30-39 MIN EST NI PATIENT Self Xi Schrader PATed [id number] [place] [address] Referral ID Status Reason Start Date Expiration Date Visits Re quested Visits Authorized [id number] Closed 02/07/2023 02/07/2023 1 1 Reason Comments PT Certification Specialty Diagnoses / Procedures Referred By Contac t Referred To Contact Neurosurgery / NEUROSURGERY Diagnoses Lumbar adjacent segment disease with spondylolisthesis discuss imaging and BWC requirements Procedures PHYS/QHP TELEPHONE EVALUATION 5-10 MIN [place]IDEO [place] [address] [place] [address] Referral ID Status Reason Start Date Expiration Date V isits Requested Visits Authorized [id number] Denied Patient Cleared - Admin/Chairm an/Director advise [...] November 07, 2023 End: November 07, 2023 .Net Developer Relationship Specialty Start Date End Date Blayne Isabel MD [address] [id number] PCP - General Family Medicine 04/11/19 .Net Developer Relationship Specialty Start Date End Date Blayne Isabel MD [address] [id number] PCP - General Family Medicine 04/11/19 .Net Developer Relationship Specialty Start Date End Date Blayne Isabel MD [address] [id number] PCP - General Family Medicine 04/11/19 .Net Developer Relationship Specialty Start Date End Date Blayne Isabel MD [address] [id number] PCP - General Family Medicine 04/11/19 Team Status: Inactive Member Role Status Dates STEPH Sarkar Attending Provider Active Team Status: Inactive Member Role Status Dates PHYSICIAN NO FAMILY Primary Care Provider Active Gianni James Nelson , DO Attending Provider Active Team Status: Inactive Member Role Status Dates Estephanie Lowry SAND MILL OPERATOR-C Attending Provider Active PHYSICIAN NO FAMILY Primary Care Provider Active .Net Developer Relationship Specialty Start Date End Date Blayne Isabel MD PCP - General Family Medicine 11/06/13 .Net Developer Relationship Specialty Start Date End Date Blayne Isabel MD PCP - General Family Medicine 11/06/13 .Net Developer Relationship Specialty Start Date End Date Blayne Isabel MD PCP - General Family Medicine 11/06/13 .Net Developer Relationship Specialty Start Date End Date Blayne Isabel MD PCP - General Family Medicine 11/06/13 .Net Developer Relationship Specialty Start Date End Date Blayne Isabel MD PCP - General Family Medicine 11/06/13 .Net Developer Relationship Specialty Start Date End Date Blayne Isabel MD PCP - General Family Medicine 11/06/13 .Net Developer Relationship Specialty Start Date End Date Blayne Isabel MD PCP - General Family Medicine 11/06/13 .Net Developer Relationship Specialty Start Date End Date Blayne Isabel MD PCP - General Family Medicine 11/06/13 .Net Developer Relationship Specialty Start Date End Date Blayne Isabel MD PCP - General Family Medicine 11/06/13 .Net Developer Relationship Specialty Start Date End Date Blayne Isabel MD PCP - General Family Medicine 11/06/13 .Net Developer Relationship Specialty Start Date End Date Blayne Isabel MD PCP - General Family Medicine 11/06/13 .Net Developer Relationship Specialty Start Date End Date Blayne Isabel MD PCP - General Family Medicine 11/06/13 .Net Developer Relationship Specialty Start Date End Date Blayne Isabel MD PCP - General [facility] Medicine 10/08/18 .Net Developer Relationship Specialty Start Date End Date Blayne Isabel MD PCP - General [facility] Medicine 10/08/18 .Net Developer Relationship Specialty Start Date End Date Blayne Isabel MD [address] [place] [address] PCP - [facility] 10/08/18 .Net Developer Relationship Specialty Start Date End Date Blayne Isabel MD [address] [place] [address] PCP - General [facility] Medicine 10/08/18 .Net Developer Relationship Specialty Start Date End Date Blayne Isabel MD PCP - General [facility] 10/08/18 .Net Developer Relationship Specialty Start Date End Date Blayne [...] Provider: Milagros Reich RN - Reason: Patient/family refused)[id number] (Not [...] Otoole RCP)1949 (Given - Provider: Yamilka Doyle E/M ENGINEER) 0729 (Not Given - Provider: Swapna De Anda E/M ENGINEER - Reason: Patient/family refused - Comment: pt [...] to back table, 1000 ml. for suction manager reliability.) sodium chloride flush 0.9 % injection 5-40 [...] or prosecute any alcohol or drug abuse patient.[facility] the event this information is protected by the Federal Confidentiality of Alcohol and Drug Abuse Patient Records regulations: The Federal rules restrict any use of the information to criminally investigate or prosecute any alcohol or drug abuse patient.[facility] HospitalIn the event this information is protected by the Federal Confidentiality of Alcohol and Drug Abuse Patient Records regulations: The Federal rules restrict any use of the information to criminally investigate or prosecute any alcohol or drug abuse patient.[facility] HospitalIn the event this information is protected by the Federal Confidentiality of Alcohol and Drug Abuse Patient Records regulations: The Federal rules restrict any use of the information to criminally investigate or prosecute any alcohol or drug abuse patient.[facility] HospitalIn the event this information is protected by the Federal Confidentiality of Alcohol and Drug Abuse Patient Records regulations: The Federal rules restrict any use of the information to criminally investigate or prosecute any alcohol or drug abuse patient.[facility] HospitalIn the event this information is protected by the Federal Confidentiality of Alcohol and Drug Abuse Patient Records regulations: The Federal rules restrict any use of the information to criminally investigate or prosecute any alcohol or drug abuse patient.[facility] HospitalIn the event this information is protected by the Federal Confidentiality of Alcohol and Drug Abuse Patient Records regulations: The Federal rules restrict any use of the information to criminally investigate or prosecute any alcohol or drug abuse patient.[facility] HospitalIn the event this information is protected by the Federal Confidentiality of Alcohol and Drug Abuse Patient Records regulations: The Federal rules restrict any use of the information to criminally investigate or prosecute any alcohol or drug abuse patient.[facility] HospitalIn the event this information is protected by the Federal Confidentiality of Alcohol and Drug Abuse Patient Records regulations: The Federal rules restrict any use of the information to criminally investigate or prosecute any alcohol or drug abuse patient.[facility] HospitalIn the event this information is protected by the Federal Confidentiality of Alcohol and Drug Abuse Patient Records regulations: The Federal rules restrict any use of the information to criminally investigate or prosecute any alcohol or drug abuse patient.[facility] HospitalIn the event this information is protected by the Federal Confidentiality of Alcohol and Drug Abuse Patient Records regulations: The Federal rules restrict any use of the information to criminally investigate or prosecute any alcohol or drug abuse patient.[facility] HospitalIn the event this information is protected by the Federal Confidentiality of Alcohol and Drug Abuse Patient Records regulations: The Federal rules restrict any use of the information to criminally investigate or prosecute any alcohol or drug abuse patient.[facility] HospitalIn the event this information is protected by the Federal Confidentiality of Alcohol and Drug Abuse Patient Records regulations: The Federal rules restrict any use of the information to criminally investigate or prosecute any alcohol or drug abuse patient.[facility] HospitalIn the event this information is protected by the Federal Confidentiality of Alcohol and Drug Abuse Patient Records regulations: The Federal rules restrict any use of the information to criminally investigate or prosecute any alcohol or drug abuse patient.[facility] HospitalIn the event this information is protected by the Federal Confidentiality of Alcohol and Drug Abuse Patient Records regulations: The Federal rules restrict any use of the information to criminally investigate or prosecute any alcohol or drug abuse patient.[facility] HospitalIn the event this information is protected by the Federal Confidentiality of Alcohol and Drug Abuse Patient Records regulations: The Federal rules restrict any use of the information to criminally investigate or prosecute any alcohol or drug abuse patient.[facility] HospitalIn the event this information is protected by the Federal Confidentiality of Alcohol and Drug Abuse Patient Records regulations: The Federal rules restrict any use of the information to criminally investigate or prosecute any alcohol or drug abuse patient.[facility] HospitalIn the event this information is protected by the Federal Confidentiality of Alcohol and Drug Abuse Patient Records regulations: The Federal rules restrict any use of the information to criminally investigate or prosecute any alcohol or drug abuse patient.[facility] HospitalIn the event this information is protected by the Federal Confidentiality of Alcohol and Drug Abuse Patient Records regulations: The Federal rules restrict any use of the information to criminally investigate or prosecute any alcohol or drug abuse patient.[facility] FOR RECORDS PERTAINING TO PATIENTS WHO [...] BE BASED ON THE PRIMARY CLINICAL RECORDS. [employer] [facility]. provides no warranty or guarantee of the accuracy or completeness of information in this document.
[2024-11-11 18:18] LABS: Glucose Urine UA NEGATIVE (NEGATIVE)
[2024-11-11 18:31] LABS: Cast Seen? NONE SEEN #/LPF (NONE SEEN); Crystals Seen? None Seen #/HPF (None Seen); Urine Culture Indicated NO
--- NOTE | 2024-11-11 19:54 | CT_ITS ---
[address] [address] Patient Name: SUKHDEEP SIMENTAL MRN: [id number] date: 1965 Sex: M Assigned Patient Location: ER Current Patient Location: .[facility] Accession/Order Number: [id number] Exam Date: 11/11/2024 20:29 Report Date: 11/11/2024 21:00 At the request of: SOFIA HARDY DO Procedure: CT abdomen pelvis wo con CT abdomen pelvis wo con 11/11/2024 8:33 PM SIGNS AND SYMPTOMS: Right flank pain, hematuria TECHNIQUE: Multidetector ct axial images of the abdomen and pelvis were obtained without IV contrast. Multiplanar reformats were performed and reviewed to further define anatomy and possible pathology. CT was performed with one or more of the following dose reduction techniques: Automated exposure control, adjustment of the mA and/or kV according to patient size, or use of iterative reconstruction technique. COMPARISON: 01/30/2023 FINDINGS: Lower Chest: There is a small right-sided pleural effusion. ABDOMEN: Liver: Within normal limits. Bile Ducts: Normal caliber. Gallbladder: No calcified gallstones. Normal caliber wall. Pancreas: Within normal limits. Spleen: Within normal limits. Adrenals: Within normal limits. Kidneys: There is a 3.3 cm simple appearing right renal cyst. There is a 4 mm stone at the inferior pole of the right renal collecting system. There is a 1 cm stone in the right renal pelvis. No hydronephrosis. Pelvis: Reproductive Organs: No pelvic masses. Ureters: Within normal limits. Bladder: Within normal limits. Bowel: Normal caliber. There is a normal appendix in the right lower quadrant. Mesenteric Lymph Nodes: No enlarged mesenteric lymph nodes. Peritoneum: No ascites or free air, no fluid collection. Vessels: Atherosclerotic changes are noted in the abdominal aorta. Retroperitoneum: Within normal limits. Abdominal Wall: There is a fat-containing ventral wall hernia. Bones: Posterior fusion hardware is noted from L2 through S1. There is evidence of posterior decompression at these levels. Degenerative changes are noted in the sacroiliac joints. CT/CT abdomen pelvis wo con IMPRESSION: There is a 1 cm stone in the right renal pelvis. This has migrated from the right renal collecting system when compared to the prior exam. No hydronephrosis. Smaller right-sided renal stones are noted. No ureteral or bladder stones. No bowel obstruction. Additional chronic findings are noted as above. Impression dictated by: Felipe Morgan M.D. 11/11/2024 9:00 PM Dictation Location: [place] [address] Electronically authenticated by: [id number] Y Date: 11/11/2024 21:00
--- NOTE | 2024-11-11 19:57 | ED.GENADUL1 ---
HPI HPI - General Adult General Chief complaint: Abdominal Pain Stated complaint: FLANK PAIN Time Seen by Provider: 11/11/24 19:48 Source: patient Mode of arrival: walk-in History of Present Illness HPI narrative: Patient is a 59-year-old male, history significant for recurrent kidney stones and CKD, presenting to the emergency department for evaluation of right flank pain. Patient states the pain began yesterday, and has slowly progressed to the point where is a persistent, severe pain in the right flank. He states this feels exactly like prior episodes of kidney stones. He states he had a urinalysis at an outpatient clinic that demonstrated large amount of blood. Other than some nausea, he denies vomiting, chest pain, diarrhea, constipation, fevers, chills, or shortness of breath. Related Data Previous Rx's ?Medication ?Instructions ?Recorded ketorolac 10 mg tablet 10 mg PO Q6H PRN pain 4 days #14 11/11/24 tabs Allergies Allergy/AdvReac Type Severity Reaction Status Date / Time No Known Drug Allergies Allergy Verified 11/11/24 16:52 Opioid HPI Opioid Management Most Recent Opioid Data: Last Pain Scale 6 Today, 20:43 Last ED Pain Assessment Today, 20:43 Last MAR Pain Assessment Today, 20:16 Review of Systems ROS Status of ROS 10 or more systems reviewed and unremarkable except as noted in history and below PFSH PFSH Social History Little interest or pleasure in doing things: not at all Feeling down, depressed, or hopeless: not at all Exam Narrative Exam Narrative: CONSTITUTIONAL: Patient appears to be in acute distress, writhing on the stretcher with his eyes closed, cannot get comfortable SKIN: Was warm and dry, no rashes on the flank. EYES: Sclerae white. EARS, NOSE, THROAT: Moist oral mucosa. RESPIRATORY: Clear to auscultation bilaterally, no wheezes, crackles, or stridor, no use of accessory muscles CARDIOVASCULAR: Normal rate and regular rhythm. There is no S3, S4, murmur, rub. GASTROINTESTINAL: Abdomen is soft, nontender, nondistended. Negative CVA tenderness bilaterally. MUSCULOSKELETAL: No peripheral edema. NEUROLOGIC: Patient is awake and alert. Facies were symmetrical. Constitutional Vital Signs, click to edit/add: Last Vital Signs Temp 98.4 F 11/11/24 21:41 Pulse 57 L 11/11/24 21:41 Resp 17 11/11/24 21:41 BP 133/76 11/11/24 21:41 Pulse Ox 94 L 11/11/24 21:41 O2 Del Method Room Air 11/11/24 16:48 Course Vital Signs Vital signs: Vital Signs Temperature 97.8 F 11/11/24 16:48 Pulse Rate 72 11/11/24 16:48 Respiratory Rate 22 H 11/11/24 16:48 Blood Pressure 149/81 H 11/11/24 16:48 Pulse Oximetry 97 11/11/24 16:48 Oxygen Delivery Method Room Air 11/11/24 16:48 Temperature 98.4 F 11/11/24 21:41 Pulse Rate 57 L 11/11/24 21:41 Respiratory Rate 17 11/11/24 21:41 Blood Pressure 133/76 11/11/24 21:41 Pulse Oximetry 94 L 11/11/24 21:41 Oxygen Delivery Method Room Air 11/11/24 16:48 Medical Decision Making MDM Narrative Medical decision making narrative: Patient is a 59-year-old male, history significant for recurrent nephrolithiasis and CKD, presenting to the emergency department with a 1 day history of right flank pain. Vital signs arrival are significant for mild hypertension tachypnea, likely secondary to his acute pain. He is otherwise afebrile and hemodynamically stable. Examination as noted above. His abdomen was soft, nontender without peritoneal signs. Differential diagnose includes right-sided nephrolithiasis, UTI, or other intra-abdominal/electrolyte/metabolic derangement. IV was established and laboratory studies were obtained. CT abdomen without contrast was ordered. He was given IV Dilaudid, IV Zofran, IV ketorolac, and a 1 L bolus normal saline for symptomatic treatment. Laboratory studies were unremarkable. No significant electrolyte or metabolic derangement. No evidence of acute kidney injury. No anemia, leukocytosis, or thrombocytopenia. No transaminitis or hyperbilirubinemia. Urinalysis was positive for hematuria, but no infection. CT abdomen/pelvis independently reviewed and interpreted by myself and radiology demonstrated 1 cm stone in the right renal pelvis without hydronephrosis. I did consult discussed the patient with urology, Dr. Montoya, given the large size of the stone. Given that there is no evidence of obstructive uropathy or infection, and the location of the stone within the renal pelvis, he is appropriate for outpatient follow-up in their clinic. On reevaluation, patient states his pain has significantly improved. He is tolerating p.o. I do believe the patient is stable for discharge at this time. They were instructed to follow up with urology for further follow-up. Return precautions were given including any new or worsening symptoms. They were given a prescription for ketorolac 10 mg every 6 hours as needed for pain x 4 days. Patient understands and agrees to the plan. FINAL IMPRESSION: #Acute right-sided nephrolithiasis DISPOSITION: Discharged home CONDITION: Fair Medical Records Medical records reviewed: Yes I reviewed the patient's medical records Lab Data Lab results reviewed: Yes I reviewed the patient's lab results Labs: Lab Results 11/11/24 11/11/24 Range/Units 17:45 20:05 WBC 7.3 (4.0-11.0) 10^3/uL RBC 4.71 (4.70-6.10) 10^6/uL Hgb 15.1 (14.0-18.0) g/dL Hct 43.1 (42.0-54.0) % MCV 91.5 (80.0-94.0) fL MCH 32.1 (25.9-34.0) pg MCHC 35.0 (29.9-35.2) g/dL RDW 12.1 (11.0-15.0) % Plt Count 219 (150-450) 10^3/uL MPV 9.2 L (9.5-13.5) fL Neut % (Auto) 55.9 (43.0-75.0) % Lymph % (Auto) 28.6 (20.5-60.0) % [place] % (Auto) 10.8 (1.7-12.0) % Eos % (Auto) 3.7 (0.9-7.0) % Baso % (Auto) 0.7 (0.2-2.0) % Neut # (Auto) 4.1 (1.4-6.5) 10^3/uL Lymph # (Auto) 2.1 (1.2-3.8) 10^3/uL [place] # (Auto) 0.8 (0.3-0.8) 10^3/uL Eos # (Auto) 0.3 (0.0-0.7) 10^3/uL Baso # (Auto) 0.1 (0.0-0.1) 10^3/uL Abs Immat Gran (auto) 0.02 (0.00-0.03) 10^3/uL Imm/Tot Granulo (auto) 0.3 (0.0-0.5) % Sodium 145 (136-145) mmol/L Potassium 4.2 (3.5-5.1) mmol/L Chloride 109 H (98-107) mmol/L Carbon Dioxide 29.9 (21.0-32.0) mmol/L Anion Gap 10.3 BUN 22.0 H (7.0-18.0) mg/dL Creatinine 1.27 (0.70-1.30) mg/dL Est GFR ( Amer) >60 (>=60 mL/min/1.73m^2) Est GFR (Non-Af Amer) 58 L (>=60 mL/min/1.73m^2) BUN/Creatinine Ratio 17.3 Glucose 109 H (74-106) mg/dL Calcium 9.2 (8.5-10.1) mg/dL Total Bilirubin 0.4 (0.2-1.0) mg/dL AST 28 (15-37) U/L ALT 48 (16-63) U/L Alkaline Phosphatase 71 (46-116) U/L Total Protein 7.6 (6.4-8.2) g/dL Albumin 3.9 (3.4-5.0) g/dL Globulin 3.7 g/dL Albumin/Globulin Ratio 1.1 Urine Color Yellow (YELLOW) Urine Clarity Clear (CLEAR) Urine pH 5.5 (5.0-9.0) Ur Specific [place] >=1.030 A (1.005-1.025) Urine Protein Trace (NEG/TRACE) mg/dL Urine Glucose (UA) Negative (NEGATIVE) mg/dL Urine Ketones Negative (NEGATIVE) mg/dL Urine Occult Blood Large A (NEGATIVE) Urine Nitrite Negative (NEGATIVE) Urine Bilirubin Negative (NEGATIVE) Urine Urobilinogen 1.0 (0.2-1.0) EU/dL Ur Leukocyte Esterase Negative (NEGATIVE) Urine RBC 50-75 A (0-2) #/HPF Urine WBC 0-2 A (NONE SEEN) #/HPF Ur Squamous Epith Cells Rare (NONE/RARE) #/LPF Urine Crystals None seen (None Seen) #/HPF Urine Bacteria Trace A (NONE SEEN) #/HPF Urine Casts None seen (NONE SEEN) #/LPF Urine Mucus Trace A (NONE SEEN) Ur Culture Indicated? No Imaging Data CT scan - abdomen: Attestation: I personally reviewed and interpreted this imaging study as follows: Radiologist's impression: ITS Impressions Abdomen/Pelvis CT 11/11/24 19:54 IMPRESSION: There is a 1 cm stone in the right renal pelvis. This has migrated from the right renal collecting system when compared to the prior exam. No hydronephrosis. Smaller right-sided renal stones are noted. No ureteral or bladder stones. No bowel obstruction. Additional chronic findings are noted as above. Impression dictated by: Fleipe Morgan M.D. 11/11/2024 9:00 PM Dictation Location: [place] [address] Electronically authenticated by: [id number] Y Date: 11/11/2024 21:00 Discharge Plan Discharge Chief Complaint: Abdominal Pain Clinical Impression: Calculus of kidney Patient Disposition: Home, Self-Care Time of Disposition Decision: 21:28 Condition: Fair Mode of Transportation: Private Vehicle Prescriptions / Home Meds: New ketorolac 10 mg tablet 10 mg PO Q6H PRN (Reason: pain) 4 Days Qty: 14 0RF Print Language: Ghanaian Instructions: Kidney Stones (ED) Referrals: Derick Packer MD [Primary Care Provider, Family Practice] - 1 week Discharge Date/Time: 11/11/24 21:47
[2024-11-11] MEDS: 0.9 % SODIUM CHLORIDE 1,000 ML 1000 ML IV (20:15)
[2024-11-11 20:16] LABS: Hematocrit 43.1 % (42.0-54.0); Hemoglobin 15.1 g/dL (14.0-18.0); Immature Granulocytes Abs Auto 0.02 10^3/uL (0.00-0.03); Immature Granulocytes Pct Auto 0.3 % (0.0-0.5); Lymphocytes Absolute Auto 2.1 10^3/uL (1.2-3.8); Mean Corpuscular HGB Conc 35.0 g/dL (29.9-35.2); Mean Corpuscular Hemoglobin 32.1 pg (25.9-34.0); Mean Corpuscular Volume 91.5 fL (80.0-94.0); Platelet Count 219 10^3/uL (150-450); Red Blood Count 4.71 10^6/uL (4.70-6.10); White Blood Count 7.3 10^3/uL (4.0-11.0)
[2024-11-11] MEDS: KETOROLAC TROMETHAMINE 30 MG/ML VIAL 15 MG IVP (20:16)
[2024-11-11] MEDS: HYDROMORPHONE HCL 1 MG/ML CARTRIDGE IV (20:16)
[2024-11-11 20:37] LABS: Alanine Aminotransferase 48 U/L (16-63); Albumin Globulin Ratio 1.1; Albumin Level 3.9 g/dL (3.4-5.0); Alkaline Phosphatase 71 U/L (46-116); Anion Gap 10.3; Aspartate Amino Transferase 28 U/L (15-37); Blood Urea Nitrogen 22.0 mg/dL (7.0-18.0); Calcium 9.2 mg/dL (8.5-10.1); Carbon Dioxide 29.9 mmol/L (21.0-32.0); Chloride 109 mmol/L (98-107); Estimated GFR (African America >60 (>=60 mL/min/1.73m^2); Estimated GFR (Non-African Ame 58 (>=60 mL/min/1.73m^2); Globulin 3.7 g/dL; Glucose 109 mg/dL (74-106); Potassium 4.2 mmol/L (3.5-5.1); Sodium 145 mmol/L (136-145); Total Protein 7.6 g/dL (6.4-8.2)
--- NOTE | 2024-11-11 21:48 | PC.NURSE ---
i gave this patient verbal and written discharge orders along with 1 e-scripts, this patient voices yes to understanding these. at time of discharge this patient voices no concerns, needs and shows no signs of distress
== END 2024-11-11 21:47 | disposition home or self-care (01) ==
PROVIDERS: Emergency Medicine; Emergency Provider Student in an Organized Health Care Education/Training Program; PCP Family Medicine
DX: N20.0 Calculus of kidney (principal); Z87.442 Personal history of urinary calculi; N18.9 Chronic kidney disease, unspecified
CPT/HCPCS: 36415; 74176; 80053; 81001; 85025; 96374; 96375; 99285; J1171; J1885; J2405

== ENCOUNTER 2024-11-12 14:42 | Observation (INO) | payer OTHER, MEDICARE, SELFPAY ==
--- OUTSIDE RECORDS SUMMARY | 2021-07-31 04:10 | XMS_ITS | Continuity of Care Document ---
Author Organization [facility] Address [address] [place] [address] Phone Care Team Providers Care Technical Support Coordinator Name Role Phone Andrés Faye MD Unavailable [...] route every day 100 MG - Active Zanaflex 4 mg capsule [...] route every day 4 MG - Active simvastatin 10 mg tablet take 1 tablet by oral route every day in the evening 10 MG - Active indomethacin 50 mg capsule take 1 capsule by oral route 3 times every day with food 50 MG - Active trazodone 50 mg tablet take 0.5 tablet b y oral route every day at bedtime 25 MG - Active Procedures Procedure Date POSTOP FOLLOW-UP VISIT Advance Directives Directive Yes / No Effective Date File Name No Information Encounters Encounter Description Practice Location Reason(s) For Visit Diagnoses Date Provider Providers Copied on Encounter [facility], [address], [place], [place], [id number], [place] tel:[phone] [facility] venous insufficiency (chief complaint)Comme nt (chief complaint) Acute saddle pulmonary embolism with acute cor pulmonale Preeti Bowen. [address] [place], [address], [place]. tel:[phone] Referring Provider: [place]és [place], [address] [place], [address]. tel:[phone] Family History Family Member Type Diagnosis Age [...] therapy he will need follow-up with a gm to clear him from home oxygen use. [...] therapy he will need follow-up with a gm to clear him from home oxygen use. [...] oxygen he will need to see a gm of to clear whether not he can be taken off home oxygen therapy. I plan to see him back in 6 months. Mental Status Date Cognitive Assessment Orientation - [place] ed to time, place, person, situation. Patient Care Teams Name Effective Dates (start - stop) Status Members No Information
[2024-11-12] VITALS (8 sets, daily range): BP systolic 114–166; BP diastolic 71–94; PULSE 62–84; TEMP 36.4–37; O2SAT 84–100; BMI 39.9; BMI 40.0
--- OUTSIDE RECORDS SUMMARY | 2024-11-12 14:50 | XMS_ITS | Encounter Summary ---
Author Organization [facility] tem Address [id number] [place] [address] Care Team Providers Care Sodium Chlorite Operator Name Role Phone Derick Packer MD Primary Care Provider [phone] Encounter Details Date Type Department Care Team (Late st Contact Info) Description 05/09/2022 Telephone [facility] [address] [place] [phone] Cherelle Oleary RN Social History Tobacco Use [...] on filedocumented in this encounter Care Teams Sodium Chlorite Operator Relationship Specialty Start Date End Date Derick Packer MD PCP - General Family Medicine 10/08/18 documented as of this encounter
--- OUTSIDE RECORDS SUMMARY | 2024-11-12 14:50 | XMS_ITS | Encounter Summary ---
Author Organization [facility] tem Address [id number] [address] [place] [address] Care Team Providers Care Senior Gamemaster Name Role Phone Derick Packer MD Primary Care Provider [phone] Encounter Details Date Type Department Care Team (Late st Contact Info) Description 04/03/2022 Telephone [facility] Management [facility] [address] [place] [phone] Cherelle Oleary RN Social History Tobacco Use [...] April 2022 to have [facility] forms completed as needed. documented in this encounter Plan of Treatment Not on file documented as of this encounter Visit Diagnoses Not on filedocumented in this encounter Care Teams Senior Gamemaster Relationship Specialty Start Date End Date Derick Packer MD PCP - General Family Medicine 10/08/18 documented as of this encounter
--- OUTSIDE RECORDS SUMMARY | 2024-11-12 14:50 | XMS_ITS | Encounter Summary ---
Author Organization [facility] tem Address [id number] [place] [address] Care Team Providers Care Foreman Shipping Department Name Role Phone Derick Packer MD Primary Care Provider [phone] Encounter Details Date Type Department Care Team (Late st Contact Info) Description 02/20/2022 Telephone [facility] [address] [place] [phone] Cherelle Oleary RN Social History Tobacco Use [...] on filedocumented in this encounter Care Teams Foreman Shipping Department Relationship Specialty Start Date End Date Derick Packer MD PCP - General Family Medicine 10/08/18 documented as of this encounter
--- OUTSIDE RECORDS SUMMARY | 2024-11-12 14:50 | XMS_ITS | Clinical Summary ---
Author Organization [facility] tem Address [facility] [id number] [place] [address] Care Team Providers Care Machine Load Clerk Name Role Phone Derick Packer MD Primary Care Provider [phone] Allergies Active Allergy Reactions Criticality Noted Date [...] (08/17/2021): Added automatically from request for surgery [id number] Degeneration of lumbosacral intervertebral disc 03/28/2021 Overview (03/28/2021): Added automatically from request for surgery [id number] Other specified inflammatory spondylopathies, candi mbar region 03/28/2021 Overview (03/28/2021): Added automatically from request for surgery [id number] Family History Medical History Relation Name Comments [...] 02/13/2024 Medical Devices Not on file Insurance [facility] [employer] Care Teams Machine Load Clerk Relationship Specialty Start Date End Date Derick Packer MD PCP - General Family Medicine 10/08/18
--- OUTSIDE RECORDS SUMMARY | 2024-11-12 14:50 | XMS_ITS | Clinical Summary ---
Author Organization [facility] Address [address], [address] [place] [address] Care Team Providers Care Repairer Name Role Phone Derick Packer MD Primary Care Provider [phone] Allergies Active Allergy Reactions Criticality Noted Date [...] on file Medical Devices Implanted Type Area Cigar Patcher Device Identifier Shelf Expiration Date Model / [...] 4:29 PM 05/26/2021 4:33 PM Care Teams Repairer Relationship Specialty Start Date End Date Derick Packer MD [address] [place] [address] PCP - General Family Medicine 04/11/19
--- OUTSIDE RECORDS SUMMARY | 2024-11-12 14:50 | XMS_ITS | Clinical Summary ---
Author Organization [facility] Address [address] [place] [id number] Care Team Providers Care Ballet Professor Name Role Phone Derick Packer MD Primary Care Provider [phone] Allergies No known active allergies Medications doxazosin [...] is lower risk 9 11/05/2022 Data from: [email or web address] Last address used for calculation Paula [...] 01/24/2027 01/24/2022 Medical Devices Implanted Type Area Swager Operator Device Identifier Shelf Expiration Date Model / Serial / Lot Vitoss Ba2x Bioactive Bone Graft Substitute 5.0cub Cm Implanted:Qty: 1 on 12/07/2022 at [facility] Implant N/A: Spine - Lumbar [place] 08/23/2023 [id number] / / [id number] Cage Tritanium 6d [id number] Spinal Sterile Latex Free Lumbar Posterior - [id number] Implanted:Qty: 1 on 12/07/2022 at [facility] Implant N/A: Spine - Lumbar [place] [employer] 08/11/2025 [id number] / / [id number] Cage Tritanium 6d [id number] Spinal Sterile Latex Free Lumbar Posterior - [id number] Implanted:Qty: 1 on 12/07/2022 at [facility] Implant N/A: Spine - Lumbar [place] [employer] 12/20/2026 [id number] / / [id number] Screw Darby 3 Titanium Set Merlyn Spine - [id number] Implanted:Qty: 10 on 12/07/2022 at [facility] Implant N/A: Spine - Lumbar [place] [employer] [id number] / / Screw Darby 3 Gloria 6.5mm 45mm Bone Polyaxial Nonsterile Spine - [id number] Implanted:Qty: 2 on 12/07/2022 at [facility] Screw N/A: Spine - Lumbar [place] [employer] [id number] / / Screw Darby 3 Gloria 6.5mm 50mm Bone Polyaxial Nonsterile Spine - [id number] Implanted:Qty: 2 on 12/07/2022 at [facility] Screw N/A: Spine - Lumbar [place] [employer] [id number] / / Procedures Procedure Name Priority Date/Time Associated Diagnosis Comments BASIC METABOLIC PANEL Routine 12/11/2022 4:50 AM EDT HEMOGLOBIN A1C Routine 11/21/2022 11:39 AM EDT Pre-op examination from Last 3 Months or Most Recently Relevant to Health Maintenance Results * (ABNORMAL) BASIC METABOLIC PNL (12/11/2022 4:50 AM EDT) [facility] Glucose 98 74 - 99 mg/dL 12/11/2022 6:30 AM EDT [facility] Comment: The [place] Diabetes Association (ADA) provides guidance for cutoff [...] Standards of Medical Care in Diabetes 2016, [place] Diabetes Association. Diabetes Care. 2016.39(Suppl 1). BUN 13 9 - 24 mg/dL 12/11/2022 6:30 AM EDT [facility] Creatinine 1.17 0.73 - 1.22 mg/dL 12/11/2022 6:30 AM EDT [facility] Sodium 143 136 - 144 mmol/L 12/11/2022 6:30 AM EDT [facility] Potassium 4.8 3.7 - 5.1 mmol/L 12/11/2022 6:30 AM EDT [facility] Chloride 106(H) 97 - 105 mmol/L 12/11/2022 6:30 AM EDT [facility] CO2 29 22 - 30 mmol/L 12/11/2022 6:30 AM EDT [facility] Anion Gap 8(L) 9 - 18 mmol/L 12/11/2022 6:30 AM EDT [facility] Calcium, Total 8.7 8.5 - 10.2 mg/dL 12/11/2022 6:30 AM EDT [facility] Estimated Glomerular Filtration Rate 72 >=60 mL/min/1. 73m 12/11/2022 6:30 AM EDT [facility] Comment:Estimated Glomerular Filtration Rate (eGFR) is [...] 12/11/2022 5:59 AM EDT us Alyssa Archual TELECASTING TECHNICIAN.CORN SHELL[employer] [facility]PER[facility] LABORATORY Final Res ult [facility] [address] [place] [address], * HGB A1C (11/21/2022 11:39 AM EDT) Hemoglobin A1C 5.5 4.3 - 5.6 % 11/22/2022 6:07 AM EDT [facility] Comment:[place] Diabetes As sociation guidelines indicate that patients with HgbA1c in the range 5.7-6.4% are at increased risk for development of diabetes, and intervention by lifestyle modification may be beneficial. HgbA1c greater or equal to 6.5% is considered diagnostic of diabetes. Estimated Average Glucose 111 mg/dL 11/22/2022 6:07 AM EDT [facility] Comment:eAG: (Estimated aver age glucose) is a calculated value from HgbA1c and is provider service representative of the average blood glucose level in the last 2-3 month period. Blood BLOOD SPECIMEN / Unknown Venipuncture / Unknown 11/21/2022 11:39 AM EDT 11/21/2022 11:39 AM EDT us Brenton Anton TELECASTING TECHNICIAN.[facility] [facility] Final Re sult [facility] [address] [place] [address], [place] from Last 3 Months or Most Recently Relevant to Health Maintenance Insurance [facility] [address] [id number] Care Teams Ballet Professor Relationship Specialty Start Date End Date Derick Packer MD PCP - General Family Medicine 11/06/13
--- OUTSIDE RECORDS SUMMARY | 2024-11-12 14:50 | XMS_ITS | Clinical Summary ---
Author Organization [facility] Healthcare Address [address] [place] [place] [address] Care Team Providers Care Heavy Equipment Plumbing Supervisor Name Role Phone Unavailable Primary Care Provider [...]
--- OUTSIDE RECORDS SUMMARY | 2024-11-12 14:50 | XMS_ITS | Clinical Summary ---
Author Organization [facility] Address [address] [place] [address] Care Team Providers Care Regulatory Analyst Name Role Phone Derick Packer MD Primary Care Provider [phone] Allergies Active Allergy Reactions Criticality Noted Date [...] - 2023-2 5 season) 2023 INFLUENZA VACCINE (#1) 2024 RSV VACCINE (1 - 1-dose 75+ series) 09/10/2038 HEP B VACCINE Aged Out No longer elig ible based on patient's age to complete this topic Insurance [employer] Care Teams Regulatory Analyst Relationship Specialty Start Date End Date Derick Packer MD PCP - General Family Medicine 01/08/20
--- NOTE | 2024-11-12 14:59 | PC.NURSE ---
right side flank pain from kidney stone. pt just picked up Toradol at pharmacy per pt
--- OUTSIDE RECORDS SUMMARY | 2024-11-12 15:03 | XMS_ITS | CCD ---
Author Organization [facility] CliniSyri Care Team Providers Care Lead Trainer Name Role Phone Blayne Isabel Primary Care Provider [phone] SUZANNE ACEVEDO Attending Unavailable BLAYNE ISABEL Primary Care Unavailable ARSENIO BHATTI Referring Unavailable BLAYNE ISABEL Primary Care Unavailable ARSENIO BHATTI Referring Unavailable BLAYNE ISABEL Primary Care Unavailable ROSE SOTELO Attending Unavailable BLAYNE ISABEL Primary Care Unavailable BLAYNE ISABEL Consulting Unavailable Blayne Isabel Primary Care Provider [phone] Blayne Isabel Primary Care Provider [phone] Octavio Becker Attending Provider Blayne Isabel MD Primary Care Provider [phone] OCTAVIO MCCLELLAN Referring Unavailable BLAYNE ISABEL [...] Unava ilable DO Gianni Nelson Attending Provider [phone] Estephanie Lowry Admitting Unavailable Estephanie Lowry Attending Unavailable NO FAMILY, PHYSICIAN Primary Care Unavailable NO FAMILY, PHYSICIAN Primary Care Unavailable Gianni Nelson Admitting Unavailable Gianni Nelson Attending Unavailable Blayne Isabel Primary Care Physician ILDIA ., DR RAI Consulting Unavailable MURILLO ., [...] Unavailable Blayne Isabel MD Primary Care Provider [phone] [facility], THOMAS Attending Unavailable QUINCY THOMAS Admitting Unavailable HOY, BLAYNE M Primary Care Unavailable LULU OVIEDO Consulting UnavailBlayne Poole MD Primary Care Provider [phone] BLAYNE ISABEL M Primary Care Unavailable QUINCY, THOMAS Referring Unavailable MAITE GALLOWAY Referring Unavailable HOY, BLAYNE M Primary Care Unavailable HOY, BLAYNE M Primary Care Unavailable MAITE GALLOWAY Referring Unavailable Blayne Isabel MD Primary Care Provider [phone] HASAN FLYNN Attending Unavailable HOY, BLAYNE M Referring Unavailable HOY, BLAYNE M Primary Care Unavailable AHSAN FLYNN Attending Unavailable HOY, BLAYNE M Referring Unavailable HOY, BLAYNE M Primary Care Unavailable AHSAN FLYNN Attending Unavailable HOY, BLAYNE M Referring Unavailable HOChad BLAYNE M Primary Care Unavailable Blayne Isabel MD Primary Care Provider [phone] PAYTON HELM Referring Unavailable PAYTON HELM Attending Unavailable PAYTON HELM Attending Unavailable Cecelia MURILLO Attending Unavailable MURILLOCecelia R Attending Unavailable MURILLO, Cecelia R Attending Unavailable MURILLO, Cecelia R Attending Unavailable Unavailable Unavailable Unavailable Allergies Allergy Classification Reported Allergen(s) Allergy Type Date of Onset Reaction(s) Facility (16 sources) Povidone-Iodine; Translations: [povidone iodine topical] Drug Allergy 9 [facility] (11 sources) Povidone-Iodine; Translations: [povidone-iodine] Drug Allergy 9 [facility] (9 sources) soap; Translations: [soap] Allergy to substance 9 [facility] (14 sources) Chlorhexidine; Translations: [CHLORHEXIDINE] Drug Allergy 1 [facility] (14 sources) Iodine; Translations: [IODINE] Drug Allergy [address] [facility] Work Phone: (15 sources) Loratadine; Translations: [loratadine] Drug Allergy 2 [facility] (1 source) Chlorhexidine Drug Allergy [facility] (1 source) Povidone-Iodine; Translations: [Betadine] Drug Allergy [facility] Repository Medications Current Medications Medication Drug Class(es) Dates Sig (Normalized) Sig (Original) acetaminophen 500 mg oral tablet (14 sources) Start: 01-02-2022 End: 01-10-2023 take 2 tablets by mouth every eight hours acetaminophen (TYLENOL EXTRA STRENGTH) 500 mg tablet TAKE TWO TABLETS BY MOUTH EVERY 8 HOURS 01/02/2022 Active Comment on above: Take 2 tablets by mo deh every 8 hours. acetaminophen 325 mg / [...] carlos th every 4 hours as needed. [id number] 200 actuat albuterol 0.09 mg/actuat metered dose [...] Start: 01-05-2021 take 1 capsule by mo [facility] every week vitamin D (ERGOCALCIFEROL) 1.25 MG (35335 UT) CAPS capsule Indications: Vitamin D deficiency [...] on above: Take 1 capsule by mo [facility] twice daily. 2 ml ondansetron 2 [...] Comment on above: Take 1 tablet by [facility] every 3 hours as needed for pain [...] 07, 2023 12:00am take 1 capsule by [facility] once daily in the morning phentermine (ADIPEX-P) [...] Repeat number: 1 take 2 tablets by [facility] in the morning pioglitazone (ACTOS) 15 mg [...] Comment on above: Take 1 capsule by [facility] once daily. temazepam 15 mg oral [...] Start: 08-21-2018 take 2 tablets by mo [facility] once daily tiZANidine (ZANAFLEX) 4 mg [...] on above: Use 1 Drop in the [facility] once daily. 72 hr scopolamine 0.0139 [...] on above: [facility] 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 [place] [address]- Medications What How Much When Instructions Unchanged [...] urinary obstructio (more content not included)... Normal [facility] Urology Office/Clinic Noteon 08-07-2024 Urology Office/Clinic Note Urology Office/Clinic Note Chief Complaint 18 month f/u with SÁNCHEZ and KUB HPI Staff 58 year old male patient here for follow up with KUB/SÁNCHEZ. KUB/SÁNCHEZ done 07/16/24 @ [facility]. Previous dx: renal mass, kidney stone, prostate [...] acquired) Seen in consult on 06/29/21 at [facility]. 11/14/21 - BUN 19.0. Crea 1.62. eGFR [...] Information LIDIA JACOBS, Cecelia Jj, URL [address] [place] [address]- Additional Instructions: 1 year w/ KUB and [...] BMI 40.0- (more content not included)... Normal [facility] Comment on above: Result Comment: Elec tronically Signed By: Cecelia MURILLO MD\.br\Date and Time Signed: 08/07/24 12:00 EDT\.br\Electronically Co-Signed By: Jacqueline Calero\.br\Date and Time Co-Signed: 08/07/24 11:53 EDT\.br\Electronically Co-Signed By: Jacqueline Calero\.br\Date and Time Co-Signed: 08/07/24 11:56 EDT\.br\Electronically Co-Signed By: Jacqueline Calero\.br\Date and Time Co-Signed: 08/07/24 11:57 EDT [facility] Patient Letter [facility] June 22, 2024 [place] [address] : 1965 Dear Mr. Sukhdeep Simental, You [...] any future cancellations. Sincerely, [place] [address] ext.[phone] [facility] Follow-Upon 06-17-2024 Follow-Up [id number] Sukhdeep Simental F 1965 M Date Provider Department Center 06/17/2024 PAYTON GRIFFITH MP ORTHO MPORTHO Family History Problem Relation Age of Onset Dementia Mother Esophageal cancer Father Alcohol abuse Father Family Status - Relation Status Age at Mother Alive Father Level of Service:45853 SD OFFICE/OUTPATIENT ESTABLISHED SF MDM 10 MIN [facility] 36on 05-18-2024 36 Will need to see the patient as soon as possible repeat x-rays and blood test to further evaluate as he has had previous infections and has high risk for recurrent infections and 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 PT WILL COME IN TODAY [facility] BASIC METABOLIC PANELon 03-2 Anion gap [Moles/Vol] 12 mmol/L Normal 7-20 [facility] Comment on above: Performed By: #### L [id number] #### [facility] ([employer]) [address] [place] [address] Calcium [Mass/Vol] 9.9 mg/dL Normal 8.6-10.3 [facility] Comment on above: Performed By: #### L [id number] #### [facility] ([employer]) [address] [place] [address] Chloride [Moles/Vol] 105 mmol/L Normal 98-107 [facility] Comment on above: Performed By: #### L [id number] #### [facility] ([facility]) [address] [place] [address] CO2 [Moles/Vol] 27 mmol/L Normal 21-31 [facility] Comment on above: Performed By: #### L [id number] #### [facility] ([facility]) [address] [place] [address] Creatinine [Mass/Vol] 1.42 mg/dL High 0.70-1.30 [facility] Comment on above: Performed By: #### L [id number] #### [facility] ([facility]) [address] [place] [address] GLOMERULAR FILTRATION RATE ML/MIN/1.73 SQ M.PREDICTED 56.6 mL/min/1.73m*2 Low >60.0 [facility] Comment on above: Result Comment: The [facility]???s estimated glomerular filtration rate (eGFR) will no [...] individuals. Performed By: #### L [id number] #### [facility] ([facility]) [address] [place] [address] Glucose [Mass/Vol] 102 mg/dL High 70-100 [facility] Comment on above: Performed By: #### L [id number] #### [facility] ([facility]) [address] [place] [address] Potassium [Moles/Vol] 4.4 mmol/L Normal 3.5-5.1 [facility] Comment on above: Performed By: #### L [id number] #### [facility] ([facility] [address] [place] [address] Sodium [Moles/Vol] 140 mmol/L Normal 136-145 [facility] Comment on above: Performed By: #### L [id number] #### [facility] ([facility]) [address] [place] [address] Urea nitrogen [Mass/Vol] 23 mg/dL Normal 7-25 [facility] Comment on above: Performed By: #### L [id number] #### [facility] ([facility]) [address] [facility] [place] [address] UREA NITROGEN/CREATININE (MASS RATIO) IN SER/PLAS 16.2 Normal [facility] Comment on above: Performed By: #### L [id number] #### [facility] ([facility]) [address] [place] [address] C-REACTIVE PROTEINon 025 C REACTIVE PROTEIN (MG/L) IN SER/PLAS <5.4 Normal <=5.0 [facility] Comment on above: Result Comment: Test ing performed using a new methodology, turbidimetry. Normal ranges have been updated. Old normal range was <8 mg/L. Performed By: #### L [id number] #### [facility] ([facility]) [address] [facility] [place] [address] CBC WITH AUTO DIFFERENTIALon 05-18-2024 Basophils (Bld) [#/Vol] 0.06 10*3/uL Normal 0.00-0.20 [facility] Comment on above: Performed By: #### L [id number] #### [facility] ([facility] [address] [facility] [place] [address] Basophils/100 WBC (Bld) 0.7 % Normal 0.0-1.0 [facility] Comment on above: Performed By: #### L [id number] #### [facility] ([facility] [address] [place] [address] Eosinophils (Bld) [#/Vol] 0.15 10*3/uL Normal 0.00-0.50 [facility] Comment on above: Performed By: #### L [id number] #### [facility] ([facility] [address] [place] [address] Eosinophils/100 WBC (Bld) 1.8 % Normal 0.0-6.0 [facility] Comment on above: Performed By: #### L [id number] #### [facility] ([facility]) [address] [place] [address] Erythrocyte distribution width (RBC) [Ratio] 11.9 % Normal 11.5-15.0 [facility] Comment on above: Performed By: #### L [id number] #### [facility] ([facility]) [address] [place] [address] ERYTHROCYTE MEAN CORPUSCULAR HEMOGLOBIN CONCENTRATION (G/DL) BY AUTOMATED 34.5 g/dL Normal 32.0-35.0 [facility] Comment on above: Performed By: #### L [id number] #### [facility] ([facility]) [address] [place] [address] Hematocrit (Bld) [Volume fraction] 47.8 % Normal 39.0-50.0 [facility] Comment on above: Performed By: #### L [id number] #### [facility] ([facility] [address] [place] [address] Hemoglobin (Bld) [Mass/Vol] 16.5 g/dL Normal 13.0-17.0 [facility] Comment on above: Performed By: #### L [id number] #### [facility] ([facility]) [address] [place] [address] Immature granulocytes (Bld) [#/Vol] 0.03 10*3/uL Normal 0.00-0.20 [facility] Comment on above: Performed By: #### L [id number] #### [facility] ([employer]) [address] [place] [address] Immature granulocytes/100 WBC (Bld) 0.4 % Normal 0.0-1.0 [facility] Comment on above: Performed By: #### L [id number] #### [facility] ([facility]) [address] [place] [address] Lymphocytes (Bld) [#/Vol] 1.80 10*3/uL Normal 1.20-4.00 [facility] Comment on above: Performed By: #### L [id number] #### [facility] ([facility]) [address] [place] [address] Lymphocytes/100 WBC (Bld) 21.8 % Normal 20.0-45.0 [facility] Comment on above: Performed By: #### L [id number] #### [facility] ([facility]) [address] [place] [address] MCH (RBC) [Entitic mass] 31.5 pg Normal 27.0-33.0 [facility] Comment on above: Performed By: #### L [id number] #### [facility] ([facility]) [address] [place] [address] MCV (RBC) [Entitic vol] 91.4 fL Normal 82.0-98.0 [facility] Comment on above: Performed By: #### L [id number] #### [facility] ([facility]) [address] [place] [address] Monocytes (Bld) [#/Vol] 0.66 10*3/uL Normal 0.10-1.00 [facility] Comment on above: Performed By: #### L [id number] #### [facility] ([facility]) [address] [place] [address] Monocytes/100 WBC (Bld) 8.0 % Normal 5.0-12.0 [facility] Comment on above: Performed By: #### L [id number] #### [facility] ([facility]) [address] [place] [address] Neutrophils (Bld) [#/Vol] 5.56 10*3/uL Normal 1.60-7.60 [facility] Comment on above: Performed By: #### L [id number] #### [facility] ([facility] [address] [place] [address] Neutrophils/100 WBC (Bld) 67.3 % Normal 40.0-72.0 [facility] Comment on above: Performed By: #### L [id number] #### [facility] ([facility] [address] [place] [address] NRBC (PER 100 WBCS) BY AUTOMATED COUNT 0.0 % Normal 0 [facility] Comment on above: Performed By: #### L [id number] #### [facility] ([facility]) [address] [place] [address] PLATELETS (10*3/UL) IN BLOOD AUTOMATED COUNT 247 10*3/uL Normal 150-400 [facility] Comment on above: Performed By: #### L [id number] #### [facility] ([facility]) [address] [place] [address] RBC (Bld) [#/Vol] 5.23 10*6/uL Normal 4.20-5.70 [facility] Comment on above: Performed By: #### L [id number] #### [facility] ([facility]) [address] [place] [address] WBC (Bld) [#/Vol] 8.26 10*3/uL Normal 4.00-10.60 [facility] Comment on above: Performed By: #### L [id number] #### [facility] ([facility]) [address] [place] [address] Follow-Upon 05-18-2024 Follow-Up [id number] Sukhdeep Simental 1965 M Date Provider Department Center 05/18/2024 PAYTON GRIFFITH MP ORTHO MPOKATHIA Family History Problem Relation Age of Onset Dementia Mother Esophageal cancer Father Alcohol abuse Father Family Status - Relation Status Age at Mother Alive Father Level of Service:55599 SD OFFICE/OUTPATIENT ESTABLISHED MOD MDM 30 MIN () Reason for Visit and Comments: Pain [136] - Swelling starts 2 months ago, started swimming about a month ago and it only made his knee worse Edema [[id number]] - Swelling starts 2 months ago, started swimming about a month ago and it only made his knee worse Normal [facility] Labon 05-18-2024 Lab [id number] Sukhdeep Simental 1965 M Date Provider Department Center 05/18/2024 2244-[facility] MP LAB RESOURCE MP DRAW Medical Pavi Family History Problem Relation Age of Onset Dementia Mother Esophageal cancer Father Alcohol abuse Father Family Status - Relation Status Age at Mother Alive Father Normal [facility] SEDIMENTATION RATEon 025 SEDIMENTATION RATE, ERYTHROCYTE 5 mm/hr Normal <20 [facility] Comment on above: Performed By: #### L [id number] #### [facility] ([facility]) [address] [place] [address] 36on 05-15-2024 36 Patient feels like h is infection is back. Right knee swelling and pain but no fever. He was seen by Dr. Isabel and he put him on oral antibiotics and wanted Dr. Helm know in case he wants him to come in and be exam. Normal [facility] Erythrocyte distribution wid th Auto (RBC) [Ratio]on 10-29-2023 Erythrocyte distribution width (RBC) [Ratio] 11.5 % 11.0-15.0 [facility] Estimated glomerular filtrat ion rate (GFR) non- Americanon 10-29-2023 GFR/1.73 sq M.predicted among non-blacks MDRD (S/P/Bld) [Vol rate/Area] 51 mL/min/{1.73_m2} Low >=60 [facility] Hematocrit Auto (Bld) [Volum e fraction]on 10-29-2023 Hematocrit (Bld) [Volume fraction] 47.7 % 42.0-54.0 [facility] Hemoglobin [Mass/volume] in Bloodon 10-29-2023 Hemoglobin (Bld) [Mass/Vol] 16.8 g/dL 14.0-18.0 [facility] Laboratory - Chemistry and C hemistry - challengeon 10-29-2023 Albumin [Mass/Vol] 3.7 g/dL 3.4-5.0 [facility] Calcium [Mass/Vol] 9.0 mg/dL 8.5-10.1 [facility] Chloride [Moles/Vol] 103 mmol/L 98-107 [facility] CO2 [Moles/Vol] 26.8 mmol/L 21.0-32.0 [facility] Creatinine [Mass/Vol] 1.41 mg/dL High 0.70-1.30 [facility] GFR/1.73 sq M.predicted MDRD (S/P/Bld) [Vol rate/Area] mL/min/{1.73_m2} >=60 [facility] Glucose [Mass/Vol] 167 mg/dL High 74-106 [facility] Magnesium [Mass/Vol] 1.9 mg/dL 1.8-2.4 [facility] Potassium [Moles/Vol] 3.9 mmol/L 3.5-5.1 [facility] Sodium [Moles/Vol] 141 mmol/L 136-145 [facility] Urate [Mass/Vol] 7.9 mg/dL High 3.5-7.2 [facility] Urea nitrogen [Mass/Vol] 26.0 mg/dL High 7.0-18.0 [facility] Urea nitrogen/Creatinine [Mass ratio] 18.4 mg/mg [facility] Bilirubin Ql (U) Negative NEGATIVE [facility] Glucose (U) [Mass/Vol] Negative NEGATIVE [facility] Ketones Ql (U) Negative NEGATIVE [facility] pH (U) 6.0 [pH] 5.0-9.0 [facility] Specific gravity (U) [Rel density] 1.015 1.005-1.025 [facility] Urobilinogen Qn (U) 0.2 {Dahiana'U}/dL 0.2-1.0 [facility] Laboratory - Specimen inform ationon 10-29-2023 Appearance (U) CLEAR CLEAR [facility] Color (U) LT. YELLOW YELLOW [facility] Laboratory - Urinalysison Hyaline casts LM Ql (Urine sed) RARE [facility] Leukocyte esterase Test strip Ql (U) Negative NEGATIVE [facility] Mucus Ql (Urine sed) NONE SEEN NONE SEEN [facility] Nitrite Ql (U) Negative NEGATIVE [facility] Protein Ql (U) Negative NEG/TRACE [facility] Leukocytes [#/volume] correc romaine for nucleated erythrocytes in Blood by Automated counon 10-29-2023 WBC corrected for nucl RBC Auto (Bld) [#/Vol] 6.9 10 3/uL 4.0-11.0 [facility] MCH Auto (RBC) [Entitic mass ]on 10-29-2023 MCH (RBC) [Entitic mass] 32.2 pg 25.9-34.0 [facility] MCHC Auto (RBC) [Mass/Vol]on 10-29-2023 MCHC (RBC) [Mass/Vol] 35.2 g/dL 29.9-35.2 [facility] MCV Auto (RBC) [Entitic vol] on 10-29-2023 MCV (RBC) [Entitic vol] 91.6 fL 80.0-94.0 [facility] No Panel Informationon 10-28 25-Hydroxy Vitamin D Total 40.8 ng/mL [facility] Comment on above: <20 ng/mL Vit D defi cient20-<30 ng/mL Vit D [id number] ng/mL Vit D sufficient>100 ng/mL Potential Toxicity Parathyroid Hormone (Intact) 91 pg/mL Abnormal 15-65 [facility] Comment on above: Performed at: - [facility] [address] [id number] Director: Logan Martinez PhD, Phone: [phone] Phosphorus Level 2.3 mg/dL Low 2.6-4.7 [facility] Urine Bacteria NONE SEEN #/HPF NONE SEEN [facility] Urine Occult Blood Negative NEGATIVE [facility] Urine Other Casts SEEN #/LPF Abnormal NONE SEEN [facility] Urine Random Creatinine 15.18 mg/dL Low 20.00-300.00 [facility] Urine Random Total Protein <6.0 mg/dL <=11.9 [facility] Urine RBC NONE SEEN #/HPF 0-2 [facility] Urine Squamous Epithelial Cells FEW #/LPF Abnormal NONE/RARE [facility] Urine WBC NONE SEEN #/HPF NONE SEEN [facility] Platelet mean volume Auto (B ld) [Entitic vol]on 10-29-2023 Platelet mean volume (Bld) [Entitic vol] 8.9 fL Low 9.5-13.5 [facility] Platelets Auto (Bld) [#/Vol] on 10-29-2023 Platelets (Bld) [#/Vol] 236 10 3/uL 150-450 [facility] RBC Auto (Bld) [#/Vol]on RBC (Bld) [#/Vol] 5.21 10 6/uL 4.70-6.10 [facility] Serum or plasma anion gap de terminationon 10-29-2023 Anion gap [Moles/Vol] 15.1 mmol/L [facility] CNPNon 10-07-2023 CNPN Telephone (NEADFV) SUKHDEEP SIMENTAL ([id number]) 1965 M Date Time Provider Department 10/07/23 [facility] During your visit today, we recorded the [...] Encounter Status:Closed by ARIANNA MUHAMMAD [facility] C[facility]N Telephone (PinnattaFV) SUKHDEEP SIMENTAL ([id number]) 1965 M Date Time Provider Department 10/04/23 THOMAS MATHEW [facility] During your visit today, we [...] Status:Closed by JUAN PABLO NOVA on 10/04/23 [facility] SUKHDEEP SIMENTAL ([id number]) 1965 M Date Time Provider Department 07/30/23 THOMAS MATHEW [facility] During your visit today, we recorded the following information about you: Arianna Little 07/30/2023 11:51 AM Signed Pt phoned regarding upcoming visit 10/06 [employer] appt. Pt unable to manage virtual visit asking for telephone visit. Pt asking how far in advance to do X-Ray. Pt will have X-Ray done locally at [facility] [place]. Please call and advise Pt phone # [phone] Ekaterina Rondon 07/30/2023 1:07 PM Signed Have sent XR Lumbar order to [facility] fax # [phone] as requested from patient. Riddhi Goss APRN.[facility] 07/30/2023 3:25 PM Signed Called Sukhdeep, [...] Encounter Status:Closed by RIDDHI GOSS on 07/30/23 [facility] CNPN Telephone (NIQ) SUKHDEEP SIMENTAL ([id number]) 1965 M Date Time Provider Department 07/23/23 THOMAS MATHEW During your visit today, we recorded the following information about you: Brenda Alex 07/23/2023 9:38 AM Signed Received request from [employer] needing more info, in [employer] for review. Juan Pablo Nova RN 07/23/2023 [...] Status:Closed by JUAN PABLO NOVA on 07/26/23 [facility] 04-16-2023 CNPN Telephone (NIQ) SUKHDEEP SIMENTAL ([id number]) 1965 M Date Time Provider Department 04/16/23 THOMAS MATHE[address] [facility] During your visit today, we recorded the following information about you: Moriah Ferguson 04/16/2023 1:27 PM Signed Received imaging disc by mail from [facility]. Disc contains CT Lumbar spine done [...] Status:Closed by MORIAH FERGUSON on 06/06/23 [facility] 04-10-2023 HARIKA Telephone (NIQ) SUKHDEEP SIMENTAL ([id number]) 1965 M Date Time Provider Department 04/10/23 [...] Status:Closed by JUAN PABLO NOVA on 04/18/23 [facility] 04-09-2023 CNPN Telephone (NIQ) SUKHDEEP SIMENTAL ([id number]) 1965 M Date Time Provider Department 04/09/23 THOMAS MATHEW During your visit today, we recorded the following information about you: Brenda Alex 04/09/2023 10:[address] Lumbar Spine Report from [facility], in epic to review. Brittany Rubio PA-C [...] by ROBSON LAZO on 04/09/23 [facility] 02-11-[address] [facility] Telephone (NIQ) SUKHDEEP SIMENTAL ([id number]) 1965 M Date Time Provider Department 02/11/23 THOMAS MATHEW During your visit today, we recorded the following information about you: Moriah Ferguson 02/11/2023 1:36 PM Signed Received fax from [employer] requesting office notes, C-9, and [employer] work 14. See fax scanned in patient's chart. Juan Pablo Nova RN 02/13/2023 3:14 PM Signed Information faxed to number requested. Faxed verification received. MariamVincent jiménezbrigido Rojo 03/06/2023 3:20 PM Signed Received updated notes from [facility] dated 03/05/23. Scanned into [employer]. Allergies As of Date: 02/11/2023 (No Known Allergies) Date Reviewed: 02/07/2023 Reviewed by: Brittany Ratliff - Fully Assessed Reason for Visit: [facility] (Worker's Comp) [4136] Prescriptions as of [...] Status:Closed by JUAN PABLO NOVA on 02/13/23 [facility] [place] 12-21-2022 [facility] Telephone (NIQ) SUKHDEEP SIMENTAL ([id number]) 1965 M Date Time Provider Department 12/21/22 THOMAS MATHEW During your visit today, we recorded the following information about you: Moriah Ferguson 12/21/2022 9:29 AM Signed Patient called with complaints of [facility] not allowing him to apple picker the pain medication that was sent [...] Encounter Status:Closed by XI SCHRADER on 12/21/22 [facility] 12-18-2022 CNPN Telephone (PODCCP) SUKHDEEP SIMENTAL ([id number]) 1965 M Date Time Provider Department 12/18/22 BLAYNE ISABEL PODCCP During your visit today, we recorded the following information about you: Amaury Carreon 12/18/2022 1:52 PM Signed PATIENT INFORMATION Record ID: [id number] Patient Name: [facility]: Roman Catholic A[place]: Neurological [place] Attending: Thomas Mathew Center: [facility] INSTRUCTIONS SN to remind patient of next upcoming appointment date, time, location SN TRANSFER TO [facility] SURVEY INFORMATION Medical/Nurse Heart Surgeon: Amaury Calderón 1. Your discharge instructions are [...] Reason for Visit: Follow Up Phone Call [3340] Cmt: All Clear Prescriptions as of 12/18/2022 [...] Encounter Status:Closed by AMAURY CARREON on 12/18/22 [facility] OLGA Telephone (NIQ) SUKHDEEP SIMENTAL ([id number]) 1965 M Date Time Provider Department 12/14/22 [...] via voice mail, as requested. Scanned into [facility]. Allergies As of Date: 12/14/2022 (No Known Allergies) Date Reviewed: 12/10/2022 Reviewed by: oYli Guerin RN - Fully Assessed Reason for Visit: FMLA Paperwork [4188] Prescriptions as of 12/17/2022 - docusate sodium [...] Status:Closed by ABBY HERNANDEZ on 12/17/22 Normal [facility] Basic metabolic 2000 panelon 12-11-2022 Anion gap [Moles/Vol] 8 mmol/L Low 9-18 [facility] Comment on above: Order Comment: Speci men Type: BLOOD SPECIMEN Ordering Facility: [facility] Address: [address] [place] [address] Performed By: #### 2 4321-2 #### [facility] CLIA [id number] [address] [place] [address] [place] Calcium [Mass/Vol] 8.7 mg/dL Normal 8.5-10.2 [facility] Comment on above: Order Comment: Speci men Type: BLOOD SPECIMEN Ordering Facility: [facility] Address: [address] [place] [address] Performed By: #### 2 4321-2 #### [facility] CLIA [id number] [address] [place] [address] [place] Chloride [Moles/Vol] 106 mmol/L High 97-105 [facility] Comment on above: Order Comment: Speci men Type: BLOOD SPECIMEN Ordering Facility: [facility] Address: [address] [place] [address] Performed By: #### 2 4321-2 #### [facility] CLIA [id number] [address] [place] [address] [place] CO2 [Moles/Vol] 29 mmol/L Normal 22-30 [facility] Comment on above: Order Comment: Speci men Type: BLOOD SPECIMEN Ordering Facility: [facility] Address: [address] [place] [address] Performed By: #### 2 4321-2 #### [facility] CLIA [id number] [address] [place] [address] [place] Creatinine [Mass/Vol] 1.17 mg/dL Normal 0.73-1.22 [facility] Comment on above: Order Comment: Speci men Type: BLOOD SPECIMEN Ordering Facility: [facility] Address: [address] [place] [address] Performed By: #### 2 4321-2 #### [facility] CLIA [id number] [address] [place] [address] [place] Creatinine and Glomerular filtration rate.predicted panel (S/P/Bld) 72 mL/min/1.73m??? Normal >=60 [facility] Comment on above: Order Comment: Shahrzad dumont Type: BLOOD SPECIMEN Ordering Facility: [facility] Address: [address] [place] [address] Result Comment: Leah mated Glomerular Filtration Rate [...] GFR. Performed By: #### 2 4321-2 #### [facility] CLIA [id number] [address] [place] [address] [place] Glucose [Mass/Vol] 98 mg/dL Normal 74-99 [facility] Comment on above: Order Comment: Shahrzad dumont Type: BLOOD SPECIMEN Ordering Facility: [facility] Address: [address] [place] [address] Result Comment: The [place] Diabetes Association (ADA) provides guidance for cutoff [...] Standards of Medical Care in Diabetes 2016, [place] [employer]. Diabetes Care. 2016.39(Suppl 1). Performed By: #### 2 4321-2 #### [facility] CLIA [id number] [address] [place], [place] [address] [place] Potassium [Moles/Vol] 4.8 mmol/L Normal 3.7-5.1 [facility] Comment on above: Order Comment: Speci men Type: BLOOD SPECIMEN Ordering Facility: [facility] Address: [address] [place] [address] Performed By: #### 2 4321-2 #### [facility] CLIA [id number] [address] [place], [place] [address] [facility] Sodium [Moles/Vol] 143 mmol/L Normal 136-144 [facility] Comment on above: Order Comment: Speci men Type: BLOOD SPECIMEN Ordering Facility: [facility] Address: [address] [place] [address] Performed By: #### 2 4321-2 #### [facility] CLIA [id number] [address] [place], [place] [address] [facility] Urea nitrogen [Mass/Vol] 13 mg/dL Normal 9-24 [facility] Comment on above: Order Comment: Speci men Type: BLOOD SPECIMEN Ordering Facility: [facility] Address: [address] [place] [address] Performed By: #### 2 4321-2 #### [facility] CLIA [id number] [address] [place], [place] [address] [facility] CASE MANAGEMon 12-11-2022 CASE MANAGEM HNO ID: [id number] Author: Gloria Toro RN Service: ? Author Type: Registered Nurse Type: Care Mgt Progress Note Filed: 12/11/2022 3:26 PM Note Text: CARE MANAGEMENT PROGRESS NOTE SERVICE DATE: 12/11/2022 SERVICE TIME: 3:26 pm LOS: 4 days No further skilled PT / OT needed at [place]. SIGNATURE: Gloria Toro RN PATIENT NAME: Sukhdeep Simental DATE: December 11, 2022 TIME: 3:25 PM PAGER/CONTACT #: [phone] Normal [facility] CBC panel Auto (Bld)on 12-11 Erythrocyte distribution width (RBC) [Ratio] 12.5 % Normal 11.5-15.0 [facility] Comment on above: Order Comment: Speci men Type: BLOOD SPECIMEN Ordering Facility: [facility] Address: [address] [place] [address] Performed By: #### 5 8410-2 #### [facility] CLIA [id number] [address] [place] [address] [place] Hematocrit (Bld) [Volume fraction] 34.6 % Low 39.0-51.0 [facility] Comment on above: Order Comment: Speci men Type: BLOOD SPECIMEN Ordering Facility: [facility] Address: [address] [place] [address] Performed By: #### 5 8410-2 #### [facility] IA [id number] [address] [place] [address] [place] Hemoglobin (Bld) [Mass/Vol] 11.7 g/dL Low 13.0-17.0 [facility] Comment on above: Order Comment: Speci men Type: BLOOD SPECIMEN Ordering Facility: [facility] Address: [address] [place] [address] Performed By: #### 5 8410-2 #### [facility] IA [id number] [address] [place] [address] [place] MCH (RBC) [Entitic mass] 32.0 pg Normal 26.0-34.0 [facility] Comment on above: Order Comment: Speci men Type: BLOOD SPECIMEN Ordering Facility: [facility] Address: [address] [place] [address] Performed By: #### 5 8410-2 #### [facility] IA [id number] [address] [place] [address] [place] MCHC (RBC) [Mass/Vol] 33.8 g/dL Normal 30.5-36.0 [facility] Comment on above: Order Comment: Speci men Type: BLOOD SPECIMEN Ordering Facility: [facility] Address: [address] [place] [address] Performed By: #### 5 8410-2 #### [facility] IA [id number] [address] [place] [address] [place] MCV (RBC) [Entitic vol] 94.5 fL Normal 80.0-100.0 [facility] Comment on above: Order Comment: Speci men Type: BLOOD SPECIMEN Ordering Facility: [facility] Address: [address] [place] [address] Performed By: #### 5 8410-2 #### [facility] CLIA [id number] [address] [place], [place] [address] [place] Nucleated RBC (Bld) [#/Vol] 10*3/uL Normal <0.01 [facility] Comment on above: Order Comment: Speci men Type: BLOOD SPECIMEN Ordering Facility: [facility] Address: [address] [place] [address] Performed By: #### 5 8410-2 #### [facility] CLIA [id number] [address] [place] [address] [place] Platelet mean volume (Bld) [Entitic vol] 9.4 fL Normal 9.0-12.7 [facility] Comment on above: Order Comment: Speci men Type: BLOOD SPECIMEN Ordering Facility: [facility] Address: [address] [place] [address] Performed By: #### 5 8410-2 #### [facility] CLIA [id number] [address] [place] [address] [place] Platelets (Bld) [#/Vol] 196 10*3/uL Normal 150-400 [facility] Comment on above: Order Comment: Speci men Type: BLOOD SPECIMEN Ordering Facility: [facility] Address: [address] [place] [address] Performed By: #### 5 8410-2 #### [facility] CLIA [id number] [address] [place] [address] [place] RBC (Bld) [#/Vol] 3.66 10*6/uL Low 4.20-6.00 [facility] Comment on above: Order Comment: Speci men Type: BLOOD SPECIMEN Ordering Facility: [facility] Address: [address] [place] [address] Performed By: #### 5 8410-2 #### [facility] CLIA [id number] [address] [place] [address] [place] WBC (Bld) [#/Vol] 9.04 10*3/uL Normal 3.70-11.00 [facility] Comment on above: Order Comment: Shahrzad dumont Type: BLOOD SPECIMEN Ordering Facility: [facility] Address: [place] [address] Performed By: #### 5 8410-2 #### [facility] CLIA [id number] [facility] [address] OF [facility] CNDSon 12-11-2022 CNDS HNO ID: [id number] Author: Brittany Rubio PA-C Service: Neurosurgery Author Type: Physician Heart Surgeon Type: Discharge Summary Filed: 12/11/2022 10:38 AM [...] you become constipated, you may use any irza-mqd-egfstbb treatment such as Milk of Magnesia, Sennakot, Prune Juice, Suppositories, etc. in addition to the stool softener/fiber supplement No alcohol or driving while on pain medication Use the dispensed medication (see prescription) You should use an fvui-eys-dmwvdnf stool softener (Docusate sodium) and/or a fiber [...] for appointment?: (more content not included)... [facility] CONSULTon 12-11-2022 CONSULT HNO ID: [id number] Author: Jaiden Rucker PA-C Service: Pain Management Author Type: Physician Heart Surgeon Type: Consults Filed: 12/11/2022 8:09 AM Note [...] 8/10 Lack of pain control with iv ball winder fentanyl and dilaudid PERTINENT ROS: denies fever, [...] Date Saniya (more content not included)... [facility] NURSING PROGon 12-11-2022 NURSING PROG HNO ID: [id number] Author: Erlinda Bui, RN Service: Nursing Author [...] information. Patient verbalizing understanding of instructions. Normal [facility] Basic metabolic 2000 panelon 12-10-2022 Anion gap [Moles/Vol] 7 mmol/L Low -18 [facility] Comment on above: Order Comment: Speci men Type: BLOOD SPECIMEN Ordering Facility: [facility] Address: [address] [place] [address] Performed By: #### 2 4321-2 #### [facility] CLIA [id number] [address] [place] [address] [place] Calcium [Mass/Vol] 8.3 mg/dL Low 8.5-10.2 [facility] Comment on above: Order Comment: Speci men Type: BLOOD SPECIMEN Ordering Facility: [facility] Address: [address] [place] [address] Performed By: #### 2 4321-2 #### [facility] CLIA [id number] [address] [place] [address] [place] Chloride [Moles/Vol] 107 mmol/L High 97-105 [facility] Comment on above: Order Comment: Speci men Type: BLOOD SPECIMEN Ordering Facility: [facility] Address: [address] [place] [address] Performed By: #### 2 4321-2 #### [facility] CLIA [id number] [address] [place] [address] [place] CO2 [Moles/Vol] 26 mmol/L Normal 22-30 [facility] Comment on above: Order Comment: Speci men Type: BLOOD SPECIMEN Ordering Facility: [facility] Address: [address] [place] [address] Performed By: #### 2 4321-2 #### [facility] CLIA [id number] [address] [place] [address] [place] Creatinine [Mass/Vol] 1.16 mg/dL Normal 0.73-1.22 [facility] Comment on above: Order Comment: Shahrzad dumont Type: BLOOD SPECIMEN Ordering Facility: [facility] Address: [address] [place] [address] Performed By: #### 2 4321-2 #### [facility] CLIA [id number] [address] [place], [place] [address] [place] Creatinine and Glomerular filtration rate.predicted panel (S/P/Bld) 73 mL/min/1.73m??? Normal >=60 [facility] Comment on above: Order Comment: Toneyfrances dumont Type: BLOOD SPECIMEN Ordering Facility: [facility] Address: [address] [place] [address] Result Comment: Leah mated Glomerular Filtration Rate [...] GFR. Performed By: #### 2 4321-2 #### [facility] CLIA [id number] [address] [place], [place] [address] [place] Glucose [Mass/Vol] 129 mg/dL High 74-99 [facility] Comment on above: Order Comment: Shahrzad dumont Type: BLOOD SPECIMEN Ordering Facility: [facility] Address: [address] [place] [address] Result Comment: The [place] Diabetes Association (ADA) provides guidance for cutoff [...] Standards of Medical Care in Diabetes 2016, [place] [employer]. Diabetes Care. 2016.39(Suppl 1). Performed By: #### 2 4321-2 #### [facility] CLIA [id number] [address] [place] [address] [place] Potassium [Moles/Vol] 4.3 mmol/L Normal 3.7-5.1 [facility] Comment on above: Order Comment: Speci men Type: BLOOD SPECIMEN Ordering Facility: [facility] Address: [address] [place] [address] Performed By: #### 2 4321-2 #### [facility] CLIA [id number] [address] [place] [address] [place] Sodium [Moles/Vol] 140 mmol/L Normal 136-144 [facility] Comment on above: Order Comment: Speci men Type: BLOOD SPECIMEN Ordering Facility: [facility] Address: [address] [place] [address] Performed By: #### 2 4321-2 #### [facility] CLIA [id number] [address] [place] [address] [place] Urea nitrogen [Mass/Vol] 16 mg/dL Normal 9-24 [facility] Comment on above: Order Comment: Speci men Type: BLOOD SPECIMEN Ordering Facility: [facility] Address: [address] [place] [address] Performed By: #### 2 4321-2 #### [facility] IA [id number] [address] [place] [address] [place] CBC panel Auto (Bld)on 12-10 Erythrocyte distribution width (RBC) [Ratio] 12.6 % Normal 11.5-15.0 [facility] Comment on above: Order Comment: Speci men Type: BLOOD SPECIMEN Ordering Facility: [facility] Address: [address] [place] [address] Performed By: #### 5 8410-2 #### [facility] CLIA [id number] [address] [place] [address] [place] Hematocrit (Bld) [Volume fraction] 32.7 % Low 39.0-51.0 [facility] Comment on above: Order Comment: Speci men Type: BLOOD SPECIMEN Ordering Facility: [facility] Address: [address] [place] [address] Performed By: #### 5 8410-2 #### [facility] CLIA [id number] [address] [place] [address] [place] Hemoglobin (Bld) [Mass/Vol] 10.9 g/dL Low 13.0-17.0 [facility] Comment on above: Order Comment: Speci men Type: BLOOD SPECIMEN Ordering Facility: [facility] Address: [address] [place] [address] Performed By: #### 5 8410-2 #### [facility] IA [id number] [address] [place] [address] [place] MCH (RBC) [Entitic mass] 31.5 pg Normal 26.0-34.0 [facility] Comment on above: Order Comment: Speci men Type: BLOOD SPECIMEN Ordering Facility: [facility] Address: [address] [place] [address] Performed By: #### 5 8410-2 #### [facility] IA [id number] [address] [place] [address] [place] MCHC (RBC) [Mass/Vol] 33.3 g/dL Normal 30.5-36.0 [facility] Comment on above: Order Comment: Speci men Type: BLOOD SPECIMEN Ordering Facility: [facility] Address: [address] [place] [address] Performed By: #### 5 8410-2 #### [facility] IA [id number] [address] [place] [address] [place] MCV (RBC) [Entitic vol] 94.5 fL Normal 80.0-100.0 [facility] Comment on above: Order Comment: Speci men Type: BLOOD SPECIMEN Ordering Facility: [facility] Address: [address] [place] [address] Performed By: #### 5 8410-2 #### [facility] IA [id number] [address] [place] [address] [place] Nucleated RBC (Bld) [#/Vol] 10*3/uL Normal <0.01 [facility] Comment on above: Order Comment: Speci men Type: BLOOD SPECIMEN Ordering Facility: [facility] Address: [address] [place] [address] Performed By: #### 5 8410-2 #### [facility] CLIA [id number] [address] [place], [place] [address] [place] Platelet mean volume (Bld) [Entitic vol] 9.6 fL Normal 9.0-12.7 [facility] Comment on above: Order Comment: Speci men Type: BLOOD SPECIMEN Ordering Facility: [facility] Address: [address] [place] [address] Performed By: #### 5 8410-2 #### [facility] CLIA [id number] [address] [place] [address] [place] Platelets (Bld) [#/Vol] 157 10*3/uL Normal 150-400 [facility] Comment on above: Order Comment: Speci men Type: BLOOD SPECIMEN Ordering Facility: [facility] Address: [address] [place] [address] Performed By: #### 5 8410-2 #### [facility] IA [id number] [address] [place] [address] [place] RBC (Bld) [#/Vol] 3.46 10*6/uL Low 4.20-6.00 [facility] Comment on above: Order Comment: Speci men Type: BLOOD SPECIMEN Ordering Facility: [facility] Address: [address] [place] [address] Performed By: #### 5 8410-2 #### [facility] CLIA [id number] [address] [place] [address] [place] WBC (Bld) [#/Vol] 8.16 10*3/uL Normal 3.70-11.00 [facility] Comment on above: Order Comment: Speci men Type: BLOOD SPECIMEN Ordering Facility: [facility] Address: [address] [place] [address] Performed By: #### 5 8410-2 #### [facility] CLIA [id number] [address] [place] [address] [place] THERAPY NTon 12-10-2022 THERAPY NT HNO ID: [id number] Author: Odilon Madrid PT Service: Physical Therapy Author Type: Physical Therapist Type: Therapy (PT/OT/Speech/Resp) Filed: 12/10/2022 11:20 AM Note Text: PHYSICAL THERAPY MISSED VISIT SERVICE DATE: 12/10/2022 SERVICE TIME: 1109 to 1111 ROOM: [place] [address] Patient not seen due to Refused Treatment. Pt reported pain levels are too high to attempt therapy. Will f/u as schedule allows and pain improves. SIGNATURE: Odilon Madrid PT PATIENT NAME: Sukhdeep Simental DATE: December 10, 2022 TIME: 11:[address] [facility] ALLIED HEALTHon 12-09-2022 ALLIED HEALTH HNO ID: [id number] Author: Akila Huitron RT(R) Service: Radiology Author [...] Jose(R) December 09, 2022 2:[address] [facility] Basic metabolic 2000 panelon 12-09-2022 Anion gap [Moles/Vol] 6 mmol/L Low 11-12 [facility] Comment on above: Order Comment: Speci men Type: BLOOD SPECIMEN Ordering Facility: [facility] Address: [address] [place] [address] Performed By: #### 2 4321-2 #### [facility] CLIA [id number] [address] [place] [id number] [place] Calcium [Mass/Vol] 8.5 mg/dL Normal 8.5-10.2 [facility] Comment on above: Order Comment: Speci men Type: BLOOD SPECIMEN Ordering Facility: [facility] Address: [address] [place] [address] Performed By: #### 2 4321-2 #### [facility] CLIA [id number] [address] [place] [address] [place] Chloride [Moles/Vol] 106 mmol/L High 97-105 [facility] Comment on above: Order Comment: Speci men Type: BLOOD SPECIMEN Ordering Facility: [facility] Address: [address] [place] [address] Performed By: #### 2 4321-2 #### [facility] CLIA [id number] [address] [place] [address] [place] CO2 [Moles/Vol] 30 mmol/L Normal 22-30 [facility] Comment on above: Order Comment: Speci men Type: BLOOD SPECIMEN Ordering Facility: [facility] Address: [address] [place] [address] Performed By: #### 2 4321-2 #### [facility] IA [id number] [address] [place] [address] [place] Creatinine [Mass/Vol] 1.34 mg/dL High 0.73-1.22 [facility] Comment on above: Order Comment: Speci men Type: BLOOD SPECIMEN Ordering Facility: [facility] Address: [address] [place] [address] Performed By: #### 2 4321-2 #### [facility] CLIA [id number] [address] [place] [address] [place] Creatinine and Glomerular filtration rate.predicted panel (S/P/Bld) 61 mL/min/1.73m??? Normal >=60 [facility] Comment on above: Order Comment: Speci men Type: BLOOD SPECIMEN Ordering Facility: [facility] Address: [address] [place] [address] Result Comment: Leah mated Glomerular Filtration Rate [...] GFR. Performed By: #### 2 4321-2 #### [facility] CLIA [id number] [address] [place] [address] [place] Glucose [Mass/Vol] 105 mg/dL High 74-99 [facility] Comment on above: Order Comment: Shahrzad dumont Type: BLOOD SPECIMEN Ordering Facility: [facility] Address: [address] [place] [address] Result Comment: The [place] [employer] Association (ADA) provides guidance for cutoff [...] Standards of Medical Care in Diabetes 2016, [place] [employer]. Diabetes Care. 2016.39(Suppl 1). Performed By: #### 2 4321-2 #### [facility] CLIA [id number] [address] [place], [place] [address] [place] Potassium [Moles/Vol] 3.9 mmol/L Normal 3.7-5.1 [facility] Comment on above: Order Comment: Shahrzad dumont Type: BLOOD SPECIMEN Ordering Facility: [facility] Address: [place] [address] Performed By: #### 2 4321-2 #### [facility] CLIA [id number] [address] [place], [place] [address] [place] Sodium [Moles/Vol] 142 mmol/L Normal 136-144 [facility] Comment on above: Order Comment: Speci men Type: BLOOD SPECIMEN Ordering Facility: [facility] Address: [address] [place] [address] Performed By: #### 2 4321-2 #### [facility] CLIA [id number] [address] [place] [address] [place] Urea nitrogen [Mass/Vol] 18 mg/dL Normal 9-24 [facility] Comment on above: Order Comment: Speci men Type: BLOOD SPECIMEN Ordering Facility: [facility] Address: [address] [place] [address] Performed By: #### 2 4321-2 #### [facility] CLIA [id number] [address] [place] [address] [place] CBC panel Auto (Bld)on 12-09 Erythrocyte distribution width (RBC) [Ratio] 12.7 % Normal 11.5-15.0 [facility] Comment on above: Order Comment: Speci men Type: BLOOD SPECIMEN Ordering Facility: [facility] Address: [address] [place] [address] Performed By: #### 5 8410-2 #### [facility] CLIA [id number] [address] [place] [address] [place] Hematocrit (Bld) [Volume fraction] 34.1 % Low 39.0-51.0 [facility] Comment on above: Order Comment: Speci men Type: BLOOD SPECIMEN Ordering Facility: [facility] Address: [address] [place] [address] Performed By: #### 5 8410-2 #### [facility] CLIA [id number] [address] [place] [address] [place] Hemoglobin (Bld) [Mass/Vol] 11.6 g/dL Low 13.0-17.0 [facility] Comment on above: Order Comment: Speci men Type: BLOOD SPECIMEN Ordering Facility: [facility] Address: [address] [place] [address] Performed By: #### 5 8410-2 #### [facility] CLIA [id number] [address] [place] [address] [place] MCH (RBC) [Entitic mass] 32.3 pg Normal 26.0-34.0 [facility] Comment on above: Order Comment: Speci men Type: BLOOD SPECIMEN Ordering Facility: [facility] Address: [address] [place] [address] Performed By: #### 5 8410-2 #### [facility] CLIA [id number] [address] [place] [address] [place] MCHC (RBC) [Mass/Vol] 34.0 g/dL Normal 30.5-36.0 [facility] Comment on above: Order Comment: Speci men Type: BLOOD SPECIMEN Ordering Facility: [facility] Address: [address] [place] [address] Performed By: #### 5 8410-2 #### [facility] CLIA [id number] [address] [place] [address] [place] MCV (RBC) [Entitic vol] 95.0 fL Normal 80.0-100.0 [facility] Comment on above: Order Comment: Speci men Type: BLOOD SPECIMEN Ordering Facility: [facility] Address: [address] [place] [address] Performed By: #### 5 8410-2 #### [facility] IA [id number] [address] [place] [address] [place] Nucleated RBC (Bld) [#/Vol] 10*3/uL Normal <0.01 [facility] Comment on above: Order Comment: Speci men Type: BLOOD SPECIMEN Ordering Facility: [facility] Address: [address] [place] [address] Performed By: #### 5 8410-2 #### [facility] CLIA [id number] [address] [place] [address] [place] Platelet mean volume (Bld) [Entitic vol] 9.6 fL Normal 9.0-12.7 [facility] Comment on above: Order Comment: Speci men Type: BLOOD SPECIMEN Ordering Facility: [facility] Address: [address] [place] [address] Performed By: #### 5 8410-2 #### [facility] CLIA [id number] [address] [place], [place] [address] [place] Platelets (Bld) [#/Vol] 159 10*3/uL Normal 150-400 [facility] Comment on above: Order Comment: Speci men Type: BLOOD SPECIMEN Ordering Facility: [facility] Address: [address] [place] [address] Performed By: #### 5 8410-2 #### [facility] CLIA [id number] [address] [place], [place] [address] [place] RBC (Bld) [#/Vol] 3.59 10*6/uL Low 4.20-6.00 [facility] Comment on above: Order Comment: Speci men Type: BLOOD SPECIMEN Ordering Facility: [facility] Address: [address] [place] [address] Performed By: #### 5 8410-2 #### [facility] IA [id number] [address] [place], [place] [address] [place] WBC (Bld) [#/Vol] 8.72 10*3/uL Normal 3.70-11.00 [facility] Comment on above: Order Comment: Speci men Type: BLOOD SPECIMEN Ordering Facility: [facility] Address: [address] [place] [address] Performed By: #### 5 8410-2 #### [facility] IA [id number] [address] [place], [place] [address] [facility] [place] NURSING PROGon 12-09-2022 NURSING PROG HNO ID: [id number] Author: Abdias Pemberton RN Service: Nursing Author Type: Registered Nurse Type: Nursing Progress Note Filed: 12/09/2022 7:21 PM Note Text: 12/09/2022 0826: hydromorphone MEDICAL COORDINATOR PESTICIDE USE rate varied. Patient rating pain 8/10 at this time stating oh, its much better than yesterday . 0931: Patient working with PT at this time 1035: Patient resting/sleeping comfortably in bed at this time. 1200: fentaNYL MEDICAL COORDINATOR PESTICIDE USE ordered. 1345: Patient ambulating in the hallway with nursing staff and . 1402: Patient at radiology for post-op XR 1406: Hydromorphone MEDICAL COORDINATOR PESTICIDE USE discontinued. While discontinuing the hydromorphone MEDICAL COORDINATOR PESTICIDE USE, patient made several comments about unused hydromorphone, I can take that medication off your hands. Patient educated that the medication will be properly wasted per protocol. 1407: fentaNYL MEDICAL COORDINATOR PESTICIDE USE started and Hydromorphone properly wasted per protocol. [...] Can't you increase my setting on the MEDICAL COORDINATOR PESTICIDE USE because I had better pain relief with the Dilaudid pump because I could press the button more frequent? Can you increase the pump settings? [facility] THERAPY NTon 12-09-2022 THERAPY NT HNO ID: [id number] Author: Abdias Crooks OT/L Service: Occupational Therapy Author Type: Occupational Therapist Type: Therapy (PT/OT/Speech/Resp) Filed: 12/09/2022 3:30 PM Note Text: Occupational Therapy Evaluation SERVICE DATE: 12/09/2022 SERVICE TIME: 1438 to 1502 ROOM: [place] [address] Total Joint Replacement Discharge Readiness: Cleared from [...] than expec (more content not included)... [facility] THERAPY NT HNO ID: [id number] Author: Hannah Mota PT, DPT Service: Physical Therapy Author Type: Physical Therapist Type: Therapy (PT/OT/Speech/Resp) Filed: 12/09/2022 10:06 AM Note Text: Physical Therapy Treatment SERVICE DATE: 12/09/2022 SERVICE TIME: 930 to 954 ROOM: [place] [address] Total Joint Replacement Discharge Readiness: Cleared from Physical Therapy Recommended Discharge Disposition: Home Anticipated Discharge Needs: Physical Assist at Home Physical Assist at Home for: Cleaning, Laundry, Meals, Stairs, Safety Recommended Discharge Equipment: No equipment needs anticipated PT 6 Clicks Score: 24 Pt agreeable to participate. Reports slight improvement in pain compared to yesterday but relies highly on MEDICAL COORDINATOR PESTICIDE USE. Pt able to ambulate around unit with [...] Difficulty walking-musculoskeleta l Interventions Provided: Therapeutic Activity (85122), Gait Training (75940) Therapeutic Activity (07095) Treatment Minutes: 10 $ Therapeutic Activity (60212) Billed Units: 1 unit Gait Training (58354) Treatment Minutes: 14 $ Gait Training (68481) Billed Units: 1 unit Training AND Education [...] this therapy (more content not included)... [facility] XR LUMBAR 2V AP/LATon 2022 XR [...] IMPRESSION: Postoperative and degenerative changes as described. Cooling Pan Tender: COURTNEY Transcribe Date/Time: Dec 09 2022 3:39P Dictated by : DONNY WOO DO This examination was interpreted and the report reviewed and electronically signed by: DONNY WOO DO on Dec 09 2022 3:42PM EST [id number] Normal [facility] Basic metabolic 2000 panelon 12-08-2022 Anion gap [Moles/Vol] 7 mmol/L Low 9-18 [facility] Comment on above: Order Comment: Speci men Type: BLOOD SPECIMEN Ordering Facility: [facility] Address: [address] [place] [address] Performed By: #### 2 4321-2 #### [facility] CLIA [id number] [address] [place] [address] [place] Calcium [Mass/Vol] 8.2 mg/dL Low 8.5-10.2 [facility] Comment on above: Order Comment: Speci men Type: BLOOD SPECIMEN Ordering Facility: [facility] Address: [address] [place] [address] Performed By: #### 2 4321-2 #### [facility] CLIA [id number] [address] [place] [address] [place] Chloride [Moles/Vol] 106 mmol/L High 97-105 [facility] Comment on above: Order Comment: Speci men Type: BLOOD SPECIMEN Ordering Facility: [facility] Address: [address] [place] [address] Performed By: #### 2 4321-2 #### [facility] CLIA [id number] [address] [place], [place] [address] [place] CO2 [Moles/Vol] 28 mmol/L Normal 22-30 [facility] Comment on above: Order Comment: Speci men Type: BLOOD SPECIMEN Ordering Facility: [facility] Address: [address] [place] [address] Performed By: #### 2 4321-2 #### [facility] CLIA [id number] [address] [place] [id number] [place] Creatinine [Mass/Vol] 1.35 mg/dL High 0.73-1.22 [facility] Comment on above: Order Comment: Shahrzad dumont Type: BLOOD SPECIMEN Ordering Facility: [facility] Address: [address] [place] [address] Performed By: #### 2 4321-2 #### [facility] CLIA [id number] [address] [place] [address] [place] Creatinine and Glomerular filtration rate.predicted panel (S/P/Bld) 60 mL/min/1.73m??? Normal >=60 [facility] Comment on above: Order Comment: Shahrzad dumont Type: BLOOD SPECIMEN Ordering Facility: [facility] Address: [address] [place] [address] Result Comment: Leah mated Glomerular Filtration Rate [...] GFR. Performed By: #### 2 4321-2 #### [facility] CLIA [id number] [address] [place], [place] [address] [place] Glucose [Mass/Vol] 139 mg/dL High 74-99 [facility] Comment on above: Order Comment: Shahrzad dumont Type: BLOOD SPECIMEN Ordering Facility: [facility] Address: [address] [place] [address] Result Comment: The [place] Diabetes Association (ADA) provides guidance for cutoff [...] Standards of Medical Care in Diabetes 2016, [place] [employer]. Diabetes Care. 2016.39(Suppl 1). Performed By: #### 2 4321-2 #### [facility] CLIA [id number] [address] [place] [address] [place] Potassium [Moles/Vol] 3.7 mmol/L Normal 3.7-5.1 [facility] Comment on above: Order Comment: Speci men Type: BLOOD SPECIMEN Ordering Facility: [facility] Address: [address] [place] [address] Performed By: #### 2 4321-2 #### [facility] CLIA [id number] [address] [place] [address] [place] Sodium [Moles/Vol] 141 mmol/L Normal 136-144 [facility] Comment on above: Order Comment: Speci men Type: BLOOD SPECIMEN Ordering Facility: [facility] Address: [address] [place] [address] Performed By: #### 2 4321-2 #### [facility] CLIA [id number] [address] [place] [address] [place] Urea nitrogen [Mass/Vol] 23 mg/dL Normal 9-24 [facility] Comment on above: Order Comment: Speci men Type: BLOOD SPECIMEN Ordering Facility: [facility] Address: [address] [place] [address] Performed By: #### 2 4321-2 #### [facility] CLIA [id number] [address] [place] [address] [place] CASE MGT INIT ASSESon 2022 CASE MGT INIT ASSES HNO ID: [id number] Author: Gloria Toro RN Service: ? Author Type: Registered Nurse Type: Care Mgt Initial Assessment Filed: 12/08/2022 8:48 AM Note Text: CARE MANAGEMENT: ASSESSMENT AND DISCHARGE PLAN SERVICE DATE: December 08, 2022 SERVICE TIME: 8:46 am PCP: Blayne Isabel MD Primary Contact: Extended Emergency Contact Information Primary Emergency Contact: Darryl Simental Address: [address] [place] [address] [place] Mobile Relation: Spouse [...] to go home, General wellness, Less pain Thor of Choice Explained: Thor of Choice Given: No Reason Not Given: [...] 08, 2022 TIME: 8:46 AM CONTACT #: [phone] [facility] CBC panel Auto (Bld)on 12-08 Erythrocyte distribution width (RBC) [Ratio] 12.8 % Normal 11.5-15.0 [facility] Comment on above: Order Comment: Shahrzad dumont Type: BLOOD SPECIMEN Ordering Facility: [facility] Address: [address] [place] [address] Performed By: #### 5 8410-2 #### [facility] CLIA [id number] [address] [place] [address] [place] Hematocrit (Bld) [Volume fraction] 34.8 % Low 39.0-51.0 [facility] Comment on above: Order Comment: Shahrzad dumont Type: BLOOD SPECIMEN Ordering Facility: [facility] Address: [address] [place] [address] Performed By: #### 5 8410-2 #### [facility] IA [id number] [address] [place] [address] [place] Hemoglobin (Bld) [Mass/Vol] 11.7 g/dL Low 13.0-17.0 [facility] Comment on above: Order Comment: Speci men Type: BLOOD SPECIMEN Ordering Facility: [facility] Address: [address] [place] [address] Performed By: #### 5 8410-2 #### [facility] IA [id number] [address] [place] [address] [place] MCH (RBC) [Entitic mass] 31.8 pg Normal 26.0-34.0 [facility] Comment on above: Order Comment: Speci men Type: BLOOD SPECIMEN Ordering Facility: [facility] Address: [address] [place] [address] Performed By: #### 5 8410-2 #### [facility] IA [id number] [address] [place] [address] [place] MCHC (RBC) [Mass/Vol] 33.6 g/dL Normal 30.5-36.0 [facility] Comment on above: Order Comment: Speci men Type: BLOOD SPECIMEN Ordering Facility: [facility] Address: [address] [place] [address] Performed By: #### 5 8410-2 #### [facility] IA [id number] [address] [place] [address] [place] MCV (RBC) [Entitic vol] 94.6 fL Normal 80.0-100.0 [facility] Comment on above: Order Comment: Speci men Type: BLOOD SPECIMEN Ordering Facility: [facility] Address: [address] [place] [address] Performed By: #### 5 8410-2 #### [facility] IA [id number] [address] [place] [address] [place] Nucleated RBC (Bld) [#/Vol] 10*3/uL Normal <0.01 [facility] Comment on above: Order Comment: Speci men Type: BLOOD SPECIMEN Ordering Facility: [facility] Address: [address] [place] [address] Performed By: #### 5 8410-2 #### [facility] CLIA [id number] [address] [place] [address] [place] Platelet mean volume (Bld) [Entitic vol] 9.4 fL Normal 9.0-12.7 [facility] Comment on above: Order Comment: Speci men Type: BLOOD SPECIMEN Ordering Facility: [facility] Address: [address] [place] [address] Performed By: #### 5 8410-2 #### [facility] CLIA [id number] [address] [place] [address] [place] Platelets (Bld) [#/Vol] 162 10*3/uL Normal 150-400 [facility] Comment on above: Order Comment: Speci men Type: BLOOD SPECIMEN Ordering Facility: [facility] Address: [address] [place] [address] Performed By: #### 5 8410-2 #### [facility] CLIA [id number] [address] [place] [address] [place] RBC (Bld) [#/Vol] 3.68 10*6/uL Low 4.20-6.00 [facility] Comment on above: Order Comment: Speci men Type: BLOOD SPECIMEN Ordering Facility: [facility] Address: [address] [place] [address] Performed By: #### 5 8410-2 #### [facility] CLIA [id number] [address] [place] [address] [place] WBC (Bld) [#/Vol] 7.95 10*3/uL Normal 3.70-11.00 [facility] Comment on above: Order Comment: Speci men Type: BLOOD SPECIMEN Ordering Facility: [facility] Address: [address] [place] [address] Performed By: #### 5 8410-2 #### [facility] CLIA [id number] [address] [place] [address] [place] CONSULTon 12-08-2022 CONSULT HNO ID: [id number] Author: Lulu Oviedo MD Service: General Internal [...] Labs 12/08 (more content not included)... [facility] NURSING PROGon 12-08-2022 NURSING PROG HNO ID: [id number] Author: Abdias Pemberton, RN Service: Nursing Author [...] notified of the patient's increased pain after MEDICAL COORDINATOR PESTICIDE USE was DC'ed earlier and transitioned to PO medications. Hydromorphone MEDICAL COORDINATOR PESTICIDE USE reordered per Dr. Mathew. 1729: Hydromorphone MEDICAL COORDINATOR PESTICIDE USE restarted. 1735: Patient assisted by nursing staff to bed and states that his pain has decreased. Patient resting comfortably in bed at this time. 1900: Patient resting comfortably in bed at this time. [facility] THERAPY NTon 12-08-2022 THERAPY NT HNO ID: [id number] Author: Taylor Montoya OTR/Kelly Service: Occupational Therapy Author Type: Occupational Therapist Type: Therapy (PT/OT/Speech/Resp) Filed: 12/08/2022 12:35 PM Note Text: OCCUPATIONAL THERAPY MISSED VISIT SERVICE DATE: 12/08/2022 SERVICE TIME: 1233 to 1233 ROOM: [place] [address] Patient not seen due to Refused Treatment. Patient having a significant amount of pain. Offered patient option of working with OT tomorrow. Pt would prefer OT evaluation tomorrow. SIGNATURE: URSULA Glynn/Kelly PATIENT NAME: Sukhdeep Simental DATE: December 08, 2022 TIME: 12:[address] [facility] THERAPY NT HNO ID: [id number] Author: Jean-Pierre Lutz, PT, DPT Service: Physical Therapy Author Type: Physical Therapist Type: Therapy (PT/OT/Speech/Resp) Filed: 12/08/2022 8:44 AM Note Text: Physical Therapy Evaluation SERVICE DATE: 12/08/2022 SERVICE TIME: 807 to 830 ROOM: [place] [address] Cleared from Physical Therapy Recommended Discharge Disposition: [...] Weakness (generalized) Interventions Provided: Evaluation, Gait Training (12641) $ Evaluation-Low (66519) Billed Units: 1 unit Gait Training (73216) Treatment Minutes: 8 $ Gait Training (96912) Billed Units: 1 unit Training AND Education [...] December 08, 2022 TIME: 8:[address] [facility] ANES POSTPROC EVALon 023 ANES POSTPROC EVAL HNO ID: [id number] Author: Ankit Orlando MD Service: Anesthesiology Author Type: Anesthesiologist Type: Anesthesia Postprocedure Evaluation Filed: 12/07/2022 3:37 PM Note Text: POST ANESTHESIA EVALUATION NOTE : 1965 Procedure Summary Date: 12/07/22 Room / Location: [place] [address] / [place] Anesthesia Start: 737 Anesthesia Stop: [...] December 07, 2022 TIME: 3:37 PM CSN: [id number] [facility] ANES PRE-OPon 12-07-2022 ANES PRE-OP HNO ID: [id number] Author: Nasim Pruett I, MD Service: Anesthesiology [...] December 07, 2022 TIME: 7:01 AM CSN: [id number] [facility] BRIEF OP NOTon 12-07-2022 BRIEF OP NOT HNO ID: [id number] Author: Thomas Mathew MD Service: Neurosurgery Author Type: Physician Type: Brief Op Note Filed: 12/07/2022 12:49 PM Note Text: BRIEF OPERATIVE / PROCEDURE NOTE LOG ID: [id number] SURGERY/PROCEDURE DATE: 12/07/2022 INCISION/PROCEDURE START TIME: 8:09 AM INCISION CLOSE/PROCEDURE END TIME: 12:34 PM SURGEON(S)/PROCEDURALI ST(S) AND LABORATORY ADMINISTRATIVE DIRECTOR(S): Surgeon(s) and Role: * Thomas Mathew MD [...] December 07, 2022 TIME: 12:[address] [facility] NURSING PROGon 12-07-2022 NURSING PROG HNO ID: [id number] Author: Livia Calix RN Service: ? Author Type: Registered Nurse Type: Nursing Progress Note Filed: 12/07/2022 2:48 PM Note Text: Transfer Note: PATIENT NAME: Sukhdeep Simental Patient Location: [address]/[place] [address] Room: [place] [address] Patient transferred into room/unit 503-2 in stable condition. Patient educated on use of call light, fall precautions, and incentive spirometer. No futher actions taken at this time. Will continue to monitor and check with patient. [facility] OPERATIVE NOon 12-07-2022 OPERATIVE NO HNO ID: [id number] Author: Thomas Mathew MD Service: Neurosurgery Author Type: Physician Type: Operative Report Filed: 12/07/2022 3:54 PM Note Text: OPERATIVE/PROCEDURE REPORT LOG ID: [id number] SURGERY/PROCEDURE DATE: 12/07/2022 INCISION/PROCEDURE START TIME: 8:09 AM INCISION CLOSE/PROCEDURE END TIME: 12:34 PM SURGEON(S)/PROCEDURALI ST(S) AND LABORATORY ADMINISTRATIVE DIRECTOR(S): Surgeon(s) and Role: * Thomas Mathew MD [...] and sized at a 10 mm. The [employer] system was the instrumentation system used. Local [...] drill was used to make a small marine pilot hole. The gear shift along with [...] Implant Name Type Inv. Item Serial No. Systematic Theology Professor Lot No. LRB No. Used Action VITOSS [id number] BIOACTIVE BONE GRAFT SUBSTITUTE 5.0CUB CM Implant [place] [id number] N/A 1 Implanted CAGE TRITANIUM 6D [id number] SPINAL STERILE LATEX FREE LUMBAR POSTERIOR - [id number] Implant CAGE TRITANIUM 6D [id number] SPINAL STERILE LATEX FREE LUMBAR POSTERIOR [place] SPINE T9H8 N/A 1 Implanted CAGE TRITANIUM 6D [id number] SPINAL STERILE LATEX FREE LUMBAR POSTERIOR - [id number] Implant CAGE TRITANIUM 6D [id number] (more content not included)... [facility] XR LUMBAR 2V AP/LATon 2022 XR LUMBAR 2V AP/LAT * * *Final Report* * * DATE OF EXAM: Dec 07 2022 12:52PM DI [facility] - XR LUMBAR 2V AP/LAT / PROCEDURE [...] examination for surgical planning and documentation. . Cooling Pan Tender: PSCB Transcribe Date/Time: Dec 07 2022 3:13P Dictated by : DONNY WOO DO This examination was interpreted and the report reviewed and electronically signed by: DONNY WOO DO on Dec 07 2022 3:15PM EST [id number] [facility] XR LUMBAR 2V AP/LAT * * *Final Report* * * DATE OF EXAM: Dec 07 2022 11:33AM [place] [id number] - XR LUMBAR 2V AP/LAT / PROCEDURE [...] Intraoperative examination for surgical planning and documentation. Cooling Pan Tender: COURTNEY Transcribe Date/Time: Dec 07 2022 2:43P Dictated by : DONNY WOO DO This examination was interpreted and the report reviewed and electronically signed by: DONNY WOO DO on Dec 07 2022 2:46PM EST [id number] [facility] XR LUMBAR 2V AP/LAT * * [...] examination for surgical planning and documentation. . Cooling Pan Tender: Earnix Transcribe Date/Time: Dec 07 2022 2:37P Dictated by : DONNY WOO DO This examination was interpreted and the report reviewed and electronically signed by: DONNY WOO DO on Dec 07 2022 2:40PM EST [id number] [facility] 11-29-[address] [facility] Telephone (NIQ) SUKHDEEP SIMENTAL ([id number]) 1965 M Date Time Provider Department 11/29/22 THOMAS MATHEW [facility] During your visit today, we recorded the following information about you: Moriah Ferguson 11/29/2022 9:50 AM Signed Patient called regarding a C/9 being filed for his Dec 07 surgery. He spoke to his [facility] contact and they said nothing has been filed yet. Please update patient. Juan Pablo Nova RN 11/29/2022 10:27 AM Signed C9 sent to provider for signature. Awaiting signature. Juan Pablo Nova RN 11/29/2022 12:20 PM Signed Signed C9 sent to [facility] and [facility]. Faxed verifications received. Kathe Lezama 12/05/2022 11:01 AM Signed Patient calling asking for an update on his C9 and surgery approval. He would like to know if nurse can reach out to [facility] for an update and let him know. Juan Pablo Nova RN 12/05/2022 11:43 AM Signed Called Sunita and discussed patient's upcoming surgery. Per Sunita she did already explain to the patient that the information was submitted to the Cnc Laser Operator for review and does take up to 5 business days for a decision. Juan Pablo Nova RN 12/05/2022 1:16 PM Signed Spoke with patient. Informed case is still on for Saturday and that I spoke with Sunita. Patient appreciative of call. Ekaterina Rondon 12/06/2022 11:34 AM Addendum Sunita called from [facility], regarding patient surgery tomorrow. Surgery has been approved based on what it was shown on the medical record. Sunita wanted a called back # [phone] Ekaterina Rondon 12/06/2022 11:35 AM Signed [facility] Scan in patient [...] Date Reviewed: 11/21/2022 Reviewed by: Maite Galloway APRN.WORKDAY CONSULTANT - Fully Assessed Reason for Visit: Bwc [...] by JUAN PABLO NOVA on 11/29/22 Normal [facility] CBC W Auto Differential pane l (Bld)on 11-21-2022 Basophils (Bld) [#/Vol] 0.04 10*3/uL Normal <0.11 [facility] Comment on above: Order Comment: Speci men Type: BLOOD SPECIMENOrdering Facility: [facility] Address: [address] [address] Performed By: #### 5 7021-8 ####[facility] LABIA [id number] [place] [address] [place] Basophils/100 WBC (Bld) 0.8 % Normal [facility] Comment on above: Order Comment: Speci men Type: BLOOD SPECIMENOrdering Facility: [facility] Address: [address] [address] Performed By: #### 5 7021-8 ####[facility] LABIA [id number] [place] Differential cell count method Nom (Bld) Auto Normal [facility] Comment on above: Order Comment: Speci men Type: BLOOD SPECIMENOrdering Facility: [facility] Address: [address] [place] [address] Performed By: #### 5 7021-8 ####[facility] LABCLIA [id number] [place] [address] [place] Eosinophils (Bld) [#/Vol] 0.11 10*3/uL Normal <0.46 [facility] Comment on above: Order Comment: Speci men Type: BLOOD SPECIMENOrdering Facility: [facility] Address: [address] [place] [address] Performed By: #### 5 7021-8 ####[facility] LABCLIA [id number] [address] [place] Eosinophils/100 WBC (Bld) 2.1 % Normal [facility] Comment on above: Order Comment: Speci men Type: BLOOD SPECIMENOrdering Facility: [facility] Address: [address] [place], [place] [address] Performed By: #### 5 7021-8 ####[facility] LABCLIA [id number] [place] [address] [place] Erythrocyte distribution width (RBC) [Ratio] 12.4 % Normal 11.5-15.0 [facility] Comment on above: Order Comment: Speci men Type: BLOOD SPECIMENOrdering Facility: [facility] Address: [address] [place], [place] [address] Performed By: #### 5 7021-8 ####[facility] LABCLIA [id number] [place] [address] [place] Hematocrit (Bld) [Volume fraction] 42.9 % Normal 39.0-51.0 [facility] Comment on above: Order Comment: Speci men Type: BLOOD SPECIMENOrdering Facility: [facility] Address: [address] Performed By: #### 5 7021-8 ####[facility] LABCLIA [id number] [place] [address] [place] Hemoglobin (Bld) [Mass/Vol] 14.5 g/dL Normal 13.0-17.0 [facility] Comment on above: Order Comment: Speci men Type: BLOOD SPECIMENOrdering Facility: [facility] Address: [address] [place], [place] [address] Performed By: #### 5 7021-8 ####[facility] LABCLIA [id number] [place] [address] [place] Immature granulocytes (Bld) [#/Vol] 10*3/uL Normal <0.10 [facility] Comment on above: Order Comment: Speci men Type: BLOOD SPECIMENOrdering Facility: [facility] Address: [address] [place], [place] [address] Performed By: #### 5 7021-8 ####[facility] LABCLIA [id number] [place] [address] [place] Immature granulocytes/100 WBC (Bld) 0.4 % Normal [facility] Comment on above: Order Comment: Speci men Type: BLOOD SPECIMENOrdering Facility: [facility] Address: [address] [place], [place] [address] Performed By: #### 5 7021-8 ####[facility] LABCLIA [id number] [place] [address] [place] Lymphocytes (Bld) [#/Vol] 1.45 10*3/uL Normal 1.00-4.00 [facility] Comment on above: Order Comment: Speci men Type: BLOOD SPECIMENOrdering Facility: [facility] Address: [address] [place], [place] [address] Performed By: #### 5 7021-8 ####[facility] LABCLIA [id number] [address] [place] Lymphocytes/100 WBC (Bld) 27.4 % Normal [facility] Comment on above: Order Comment: Speci men Type: BLOOD SPECIMENOrdering Facility: [facility] Address: [address] [place] [address] Performed By: #### 5 7021-8 ####[facility] LABIA [id number] [address] MCH (RBC) [Entitic mass] 31.7 pg Normal 26.0-34.0 [facility] Comment on above: Order Comment: Speci men Type: BLOOD SPECIMENOrdering Facility: [facility] Address: [address] [place] [address] Performed By: #### 5 7021-8 ####[facility] LABIA [id number] [address] STATES [facility] MCHC (RBC) [Mass/Vol] 33.8 g/dL Normal 30.5-36.0 [facility] Comment on above: Order Comment: Speci men Type: BLOOD SPECIMENOrdering Facility: [facility] Address: [address] [place], [place] [address] Performed By: #### 5 7021-8 ####[facility] LABIA [id number] [address] [place] MCV (RBC) [Entitic vol] 93.7 fL Normal 80.0-100.0 [facility] Comment on above: Order Comment: Speci men Type: BLOOD SPECIMENOrdering Facility: [facility] Address: [address] [place], [place] [address] Performed By: #### 5 7021-8 ####[facility] LABIA [id number] [place] [address] [place] Monocytes (Bld) [#/Vol] 0.49 10*3/uL Normal <0.87 [facility] Comment on above: Order Comment: Speci men Type: BLOOD SPECIMENOrdering Facility: [facility] Address: [address] Performed By: #### 5 7021-8 ####[facility] LABIA [id number] [place] [address] [place] Monocytes/100 WBC (Bld) 9.2 % Normal [facility] Comment on above: Order Comment: Speci men Type: BLOOD SPECIMENOrdering Facility: [facility] Address: [address] Performed By: #### 5 7021-8 ####[facility] LABIA [id number] [place] [address] [place] Neutrophils (Bld) [#/Vol] 3.19 10*3/uL Normal 1.45-7.50 [facility] Comment on above: Order Comment: Speci men Type: BLOOD SPECIMENOrdering Facility: [facility] Address: [address] Performed By: #### 5 7021-8 ####[facility] LABIA [id number] [place] [address] [place] Neutrophils/100 WBC (Bld) 60.1 % Normal [facility] Comment on above: Order Comment: Speci men Type: BLOOD SPECIMENOrdering Facility: [facility] Address: [address] [place] [address] Performed By: #### 5 7021-8 ####[facility] LABIA [id number] [place] [address] [place] Nucleated RBC (Bld) [#/Vol] 10*3/uL Normal <0.01 [facility] Comment on above: Order Comment: Speci men Type: BLOOD SPECIMENOrdering Facility: [facility] Address: [address] [place] [address] Performed By: #### 5 7021-8 ####[facility] LABIA [id number] [place] [address] [place] Nucleated RBC/100 WBC (Bld) [Ratio] 0.0 /100 WBC Normal [facility] Comment on above: Order Comment: Speci men Type: BLOOD SPECIMENOrdering Facility: [facility] Address: [address] [place] [address] Performed By: #### 5 7021-8 ####[facility] LABIA [id number] [place] [address] [place] Platelet mean volume (Bld) [Entitic vol] 9.4 fL Normal 9.0-12.7 [facility] Comment on above: Order Comment: Speci men Type: BLOOD SPECIMENOrdering Facility: [facility] Address: [address] [place] [address] Performed By: #### 5 7021-8 ####[facility] LABIA [id number] [place] [address] [place] Platelets (Bld) [#/Vol] 222 10*3/uL Normal 150-400 [facility] Comment on above: Order Comment: Speci men Type: BLOOD SPECIMENOrdering Facility: [facility] Address: [address] [place] [address] Performed By: #### 5 7021-8 ####[facility] LABIA [id number] [place] [address] [place] RBC (Bld) [#/Vol] 4.58 10*6/uL Normal 4.20-6.00 [facility] Comment on above: Order Comment: Speci men Type: BLOOD SPECIMENOrdering Facility: [facility] Address: [address] [place] [address] Performed By: #### 5 7021-8 ####[facility] LABIA [id number] [place] [address] [place] WBC (Bld) [#/Vol] 5.30 10*3/uL Normal 3.70-11.00 [facility] Comment on above: Order Comment: Speci men Type: BLOOD SPECIMENOrdering Facility: [facility] Address: [address] [place] [address] Performed By: #### 5 7021-8 ####[facility] LABCLIA [id number] [address] STATES OF [facility] CONFIRM BLOOD TYPEon 023 ABO A Normal [facility] Comment on above: Order Comment: Speci men Type: BLOOD SPECIMENOrdering Facility: [facility] Address: [address] [place] [address] Performed By: #### C ONABO ####[facility] BLOOD BANKCLIA [id number] [place] [address] [place] Rh Nom (Bld) Negative Normal [facility] Comment on above: Order Comment: Speci men Type: BLOOD SPECIMENOrdering Facility: [facility] Address: [address] [place] [address] Performed By: #### C ONABO ####[facility] BLOOD BANKCLIA [id number] [place] [address] [place] Comprehensive metabolic 2000 panelon 11-21-2022 Albumin [Mass/Vol] 4.3 g/dL Normal 3.9-4.9 [facility] Comment on above: Order Comment: Speci men Type: BLOOD SPECIMENOrdering Facility: [facility] Address: [address] [place] [address] Performed By: #### 2 4323-8 ####[facility] LABCLIA [id number] [place] [address] [place] ALP [Catalytic activity/Vol] 68 U/L Normal 38-113 [facility] Comment on above: Order Comment: Speci men Type: BLOOD SPECIMENOrdering Facility: [facility] Address: [address] [place] [address] Performed By: #### 2 4323-8 ####[facility] LABCLIA [id number] [address] [place] ALT [Catalytic activity/Vol] 16 U/L Normal 10-54 [facility] Comment on above: Order Comment: Speci men Type: BLOOD SPECIMENOrdering Facility: [facility] Address: [address] [place] [address] Performed By: #### 2 4323-8 ####[facility] LABCLIA [id number] [place] [address] [place] Anion gap [Moles/Vol] 10 mmol/L Normal 9-18 [facility] Comment on above: Order Comment: Speci men Type: BLOOD SPECIMENOrdering Facility: [facility] Address: [address] [place] [address] Performed By: #### 2 4323-8 ####[facility] LABCLIA [id number] [place] [address] [place] AST [Catalytic activity/Vol] 21 U/L Normal 14-40 [facility] Comment on above: Order Comment: Speci men Type: BLOOD SPECIMENOrdering Facility: [facility] Address: [address] [place] [address] Performed By: #### 2 4323-8 ####[facility] LABCLIA [id number] [place] [address] [place] Bilirubin [Mass/Vol] 0.5 mg/dL Normal 0.2-1.3 [facility] Comment on above: Order Comment: Speci men Type: BLOOD SPECIMENOrdering Facility: [facility] Address: [address] [place] [address] Performed By: #### 2 4323-8 ####[facility] LABCLIA [id number] [place] [address] [place] Calcium [Mass/Vol] 9.9 mg/dL Normal 8.5-10.2 [facility] Comment on above: Order Comment: Speci men Type: BLOOD SPECIMENOrdering Facility: [facility] Address: [address] Performed By: #### 2 4323-8 ####[facility] LABCLIA [id number] [place] [address] [place] Chloride [Moles/Vol] 106 mmol/L High 97-105 [facility] Comment on above: Order Comment: Speci men Type: BLOOD SPECIMENOrdering Facility: [facility] Address: [address] [place] [address] Performed By: #### 2 4323-8 ####[facility] LABCLIA [id number] [place] [address] [place] CO2 [Moles/Vol] 27 mmol/L Normal 22-30 [facility] Comment on above: Order Comment: Speci men Type: BLOOD SPECIMENOrdering Facility: [facility] Address: [address] [place], [place] [address] Performed By: #### 2 4323-8 ####[facility] LABCLIA [id number] [place] [address] [place] Creatinine [Mass/Vol] 1.22 mg/dL Normal 0.73-1.22 [facility] Comment on above: Order Comment: Speci men Type: BLOOD SPECIMENOrdering Facility: [facility] Address: [address] Performed By: #### 2 4323-8 ####[facility] LABCLIA [id number] [place] [address] [place] Creatinine and Glomerular filtration rate.predicted panel (S/P/Bld) 68 mL/min/1.73m??? Normal >=60 [facility] Comment on above: Order Comment: Speci men Type: BLOOD SPECIMENOrdering Facility: [facility] Address: [address] [id number] Result Comment: Leah mated Glomerular Filtration Rate [...] actual GFR. Performed By: #### 2 4323-8 ####[facility] LABCLIA [id number] [place] [address] [place] Glucose [Mass/Vol] 111 mg/dL High 74-99 [facility] Comment on above: Order Comment: Shahrzad dumont Type: BLOOD SPECIMENOrdering Facility: [facility] Address: [address] [address] Result Comment: The [place] Diabetes Association (ADA) provides guidance for cutoff [...] Standards of Medical Care in Diabetes 2016, [place] Diabetes Association. Diabetes Care. 2016.39(Suppl 1). Performed By: #### 2 4323-8 ####[facility] LABCLIA [id number] [place] [address] [place] Potassium [Moles/Vol] 4.2 mmol/L Normal 3.7-5.1 [facility] Comment on above: Order Comment: Shahrzad dumont Type: BLOOD SPECIMENOrdering Facility: [facility] Address: [address] [address] Performed By: #### 2 4323-8 ####[facility] LABCLIA [id number] [place] [address] [place] Protein [Mass/Vol] 7.0 g/dL Normal 6.3-8.0 [facility] Comment on above: Order Comment: Speci men Type: BLOOD SPECIMENOrdering Facility: [facility] Address: [address] [place] [address] Performed By: #### 2 4323-8 ####[facility] LABCLIA [id number] [place] [address] [place] Sodium [Moles/Vol] 143 mmol/L Normal 136-144 [facility] Comment on above: Order Comment: Speci men Type: BLOOD SPECIMENOrdering Facility: [facility] Address: [address] [place] [address] Performed By: #### 2 4323-8 ####[facility] LABIA [id number] [address] STATES OF [facility] Urea nitrogen [Mass/Vol] 22 mg/dL Normal 9-24 [facility] Comment on above: Order Comment: Speci men Type: BLOOD SPECIMENOrdering Facility: [facility] Address: [address] [place] [address] Performed By: #### 2 4323-8 ####[facility] LABIA [id number] [address] [place] REN07em 11-21-2022 ECG01 Ventricular Rate : 6 5 BPM Atrial Rate : 65 BPM P-R Interval : 180 ms QRS Duration : 98 ms Q-T Interval : 440 ms QTC Calculation(Bazett) : 457 ms Calculated P Eminence : 0 degrees Calculated R Eminence : -10 degrees Calculated T Eminence : 49 degrees NORMAL SINUS RHYTHM NORMAL ECG Confirmed by SHANIA RESTREPO M.D. ([id number]) on 11/22/2022 12:00:34 PM NAME : SUKHDEEP SIMENTAL PID : [id number] : 1965 Gender : Male Race : ORD : Procedure Date : Nov 21 2022 10:59:49 Edit Date : Nov 22 2022 12:00:38 Diagnosis: NORMAL SINUS RHYTHM NORMAL ECG Confirmed by SHANIA RESTREPO M.D. ([id number]) on 11/22/2022 12:00:34 PM Test Reason : SURGERY Location : 545 : [facility] Overread By : SHANIA RESTREPO M.D. Edited By : SHANIA RESTREPO M.D. Referred By : THOMAS MATHEW Acquired by : Santiago DANIELLE [facility] HISTORY PHYSICALon HISTORY PHYSICAL HNO ID: [id number] Author: Maite Galloway APRN.WORKDAY CONSULTANT Service: ? Author Type: Nurse Practitioner Type: [...] pain. Skin: (more content not included)... Normal [facility] HbA1c (Bld)on 11-21-2022 Average glucose Estimated from glycated hemoglobin (Bld) [Mass/Vol] 111 mg/dL Normal [facility] Comment on above: Order Comment: Shahrzad dumont Type: BLOOD SPECIMENOrdering Facility: [facility] Address: [address] [address] Result Comment: eAG: (Estimated average glucose) is a calculated value from HgbA1c and is training representative of the average blood glucose level in the last 2-3 month period. Performed By: #### 5 5454-3 ####[facility] LABCLIA [id number] [place] [address] [place] HbA1c (Bld) [Mass fraction] 5.5 % Normal 4.3-5.6 [facility] Comment on above: Order Comment: Shahrzad dumont Type: BLOOD SPECIMENOrdering Facility: [facility] Address: [address] [address] Result Comment: [place] Diabetes Association guidelines indicate that patients with HgbA1c in the range 5.7-6.4% are at increased risk for development of diabetes, and intervention by lifestyle modification may be beneficial. HgbA1c greater or equal to 6.5% is considered diagnostic of diabetes. Performed By: #### 5 5454-3 ####[facility] LABCLIA [id number] [address] OF [place] TYPE AND SCREEN,30 DAYon ABO A Normal [facility] Comment on above: Order Comment: Speci men Type: BLOOD SPECIMENOrdering Facility: [facility] Address: [address] [place] [address] Performed By: #### T SCR30 ####[facility] BLOOD BANKCLIA [id number] [address] HISTORICAL AB SCR STATUS Negative Normal [facility] Comment on above: Order Comment: Speci men Type: BLOOD SPECIMENOrdering Facility: [facility] Address: [address] [place] [address] Performed By: #### T SCR30 ####[facility] BLOOD BANKCLIA [id number] [address] Rh Nom (Bld) Negative Normal [facility] Comment on above: Order Comment: Speci men Type: BLOOD SPECIMENOrdering Facility: [facility] Address: [address] [place] [address] Performed By: #### T SCR30 ####[facility] BLOOD BANKCLIA [id number] [address] ABD/PELVIS WO CONon 07-06 CT [...] by: OBIE TSE Date: 2022-07-06 13:19 Normal [facility] PTH INTACTon 06-12-2022 PTH, Intact 38 pg/mL Normal 15-65 [facility] Comment on above: Performed By: #### P T #### [facility] [address] [place] [address] Dr. Hugh Landis FERRITINon 06-11-2022 Ferritin [Mass/Vol] 96.0 ng/mL Normal 26.0-388.0 [facility] Comment on above: Performed By: #### P T #### [facility] [address] [place] [address] Dr. Hugh Landis HEMOGRAM AND PLATELon 2022 Hematocrit (Bld) [Volume fraction] 39.1 % Critically low 42.0-54.0 [facility] Comment on above: Performed By: #### H H #### [facility] [address] [place] [address] Dr. Hugh Landis Hemoglobin (Bld) [Mass/Vol] 13.3 g/dL Critically low 14.0-18.0 [facility] Comment on above: Performed By: #### H H #### [facility] [address] [place] [address] Dr. Hugh Landis MCH (RBC) [Entitic mass] 30.5 pg Normal 25.9-34.0 [facility] Comment on above: Performed By: #### H H #### [facility] [address] [place] [address] Dr. Hugh Landis MCHC (RBC) [Mass/Vol] 34.0 g/dL Normal 29.9-35.[address] [facility] Comment on above: Performed By: #### H H #### [facility] [address] [place] [address] Dr. Hugh Landis MCV (RBC) [Entitic vol] 89.7 fL Normal 80.0-94.[address] [facility] Comment on above: Performed By: #### H H #### [facility] [address] [place] [address] Dr. Hugh Landis PLT 230 103/ul Normal 150-450 [facility] Comment on above: Performed By: #### H H #### [facility] [address] [address] [address] Hugh Landis RBC 4.36 106/ul Critically low 4.70-6.10 [facility] Comment on above: Performed By: #### H H #### [facility] [address] [address] [address] Hugh Landis WBC 4.8 103/ul Normal 4.0-11.[address] [facility] Comment on above: Performed By: #### H H #### [facility] [address] [place] [address] Dr. Hugh Landis IRON AND TIBCon 06-11-2022 % SATURATION 55.0 % Normal [facility] Comment on above: Performed By: #### P T #### [facility] [address] [place] [address] Dr. Hugh Landis Iron [Mass/Vol] 137.0 ug/dL Normal 65.0-175.0 [facility] Comment on above: Performed By: #### P T #### [facility] [address] [place] [address] Dr. Hugh Landis TIBC DIRECT 249.0 ug/dL Critically low 250.0-450.0 [facility] Comment on above: Performed By: #### P T #### [facility] [address] [place] [address] Dr. Hugh Landis MAGNESIUMon 06-11-2022 Magnesium [Mass/Vol] 1.9 mg/dL Normal 1.8-2.4 [facility] Comment on above: Performed By: #### P TT #### [facility] [address] [address] [address] Hugh Landis RENAL FUNCTION PANELon 06-11 Albumin [Mass/Vol] 3.5 g/dL Normal 3.4-5.0 [facility] Comment on above: Performed By: #### P TT #### [facility] [address] [place] [address] Dr. Hugh Landis Calcium [Mass/Vol] 9.5 mg/dL Normal 8.5-10.1 [facility] Comment on above: Performed By: #### P TT #### [facility] [address] [place] [address] Dr. Hugh Landis Chloride [Moles/Vol] 107 mmol/L Normal 98-[address] [facility] Comment on above: Performed By: #### P TT #### [facility] [address] [place] [address] Dr. Hugh Landis CO2 [Moles/Vol] 30.9 mmol/L Normal 21.0-32.0 [facility] Comment on above: Performed By: #### P TT #### [facility] [address] [place] [address] Dr. Hugh Landis Creatinine [Mass/Vol] 1.41 mg/dL Critically high 0.70-1.[address] [facility] Comment on above: Performed By: #### P TT #### [facility] [address] [place] [address] Dr. Hugh Landis EGFR-AF BRUNEIAN >60 Normal >=60 [facility] Comment on above: Performed By: #### P TT #### [facility] [address] [place] [address] Dr. Hugh Landis EGFR-NON AF BRUNEIAN 52 mL/min/1.73m2 Critically low >=[address] [facility] Comment on above: Performed By: #### P TT #### [facility] [address] [place] [address] Dr. Hugh Landis Glucose [Mass/Vol] 118 mg/dL Critically high 74-106 [facility] Comment on above: Performed By: #### P TT #### [facility] [address] [address] [address] Hugh Landis Phosphate [Mass/Vol] 3.0 mg/dL Normal 2.6-4.7 [facility] Comment on above: Performed By: #### P TT #### [facility] [address] [address] [address] Hugh Landis Potassium [Moles/Vol] 3.9 mmol/L Normal 3.5-5.1 [facility] Comment on above: Performed By: #### P TT #### [facility] [address] [place] [address] Dr. Hugh Landis Sodium [Moles/Vol] 143 mmol/L Normal 136-145 [facility] Comment on above: Performed By: #### P TT #### [facility] [address] [place] [address] Dr. Hugh Landis Urea nitrogen [Mass/Vol] 19.0 mg/dL Critically high 7.0-18.0 [facility] Comment on above: Performed By: #### P TT #### [facility] [address] [place] [address] Dr. Hugh Landis UA RANDOM W/MICROSCOPICon BACTERIA NONE SEEN Normal NONE SEEN [facility] Comment on above: Performed By: #### P T #### [facility] [address] [place] [address] Dr. Hugh Landis Bilirubin Ql (U) Negative Normal NEGATIVE [facility] Comment on above: Performed By: #### P T #### [facility] [address] [place] [address] Dr. Hugh Landis CAST NONE SEEN Normal NONE SEEN [facility] Comment on above: Performed By: #### P T #### [facility] [address] [place] [address] Dr. Hugh Landis Clarity (U) CLEAR Normal CLEAR [facility] Comment on above: Performed By: #### P T #### [facility] [address] [place] [address] Dr. Hugh Landis Color (U) YELLOW Normal YELLOW [facility] Comment on above: Performed By: #### P T #### [facility] [address] [place] [address] Dr. Hugh Landis Crystals LM Nom (Urine sed) NONE SEEN Normal NONE SEEN [facility] Comment on above: Performed By: #### P T #### [facility] [address] [place] [address] Dr. Hugh Landis Epithelial cells LM Ql (Urine sed) FEW Abnormal NONE SEEN /RARE [facility] Comment on above: Performed By: #### P T #### [facility] [address] [place] [address] Dr. Hugh Landis Glucose Ql (U) Negative Normal NEGATIVE [facility] Comment on above: Performed By: #### P T #### [facility] [address] [place] [address] Dr. Hugh Landis Hemoglobin Ql (U) Negative Normal NEGATIVE [facility] Comment on above: Performed By: #### P T #### [facility] [address] [place] [address] Dr. Hugh Landis Ketones Ql (U) TRACE Abnormal NEGATIVE [facility] Comment on above: Performed By: #### P T #### [facility] [address] [place] [address] Dr. Hugh Landis LEUKOCYTES Negative Normal NEGATIVE [facility] Comment on above: Performed By: #### P T #### [facility] [address] [place] [address] Dr. Hugh Landis MUCOUS MODERATE Abnormal NONE SEEN [facility] Comment on above: Performed By: #### P T #### [facility] [address] [place] [address] Dr. Hugh Landis Nitrite Ql (U) Negative Normal NEGATIVE [facility] Comment on above: Performed By: #### P T #### [facility] [address] [place] [address] Dr. Hugh Landis pH (U) 5.0 [pH] Normal 5-[address] [facility] Comment on above: Performed By: #### P T #### [facility] [address] [place] [address] Dr. Hugh Landis RBC NONE SEEN Abnormal 0-[address] [facility] Comment on above: Performed By: #### P T #### [facility] [address] [place] [address] Dr. Hugh Landis SPEC GRAVITY 1.025 Normal 1.005-<=1.02 5 [facility] Comment on above: Performed By: #### P T #### [facility] [address] [place] [address] Dr. Hugh Landis UA PROTEIN TRACE Normal NEGATIVE/ TRACE [facility] Comment on above: Performed By: #### P T #### [facility] [address] [place] [address] Dr. Hugh Landis Urobilinogen Qn (U) 0.2 {Dahiana'U}/dL Normal 0.2 - 1. 0 [facility] Comment on above: Performed By: #### P T #### [facility] [address] [place] [address] Dr. Hugh Landis WBC NONE SEEN Normal NONE SEEN [facility] Comment on above: Performed By: #### P T #### [facility] [address] [place] [address] Dr. Hugh Landis URIC ACID SERUMon 06-11-2022 Urate [Mass/Vol] 7.5 mg/dL Critically high 3.5-7.2 [facility] Comment on above: Performed By: #### P TT #### [facility] [address] [place] [address] Dr. Hugh Landis VITAMIN D 25 OHon 06-11-2022 VIT D 25-OH 35.0 ng/mL Normal [facility] Comment on above: Performed By: #### P T #### [facility] [address] [place] [address] Dr. Hugh Landis VIT D RANGES SEE BELOW Normal [facility] Comment on above: Result Comment: <20 ng/mL Vit D deficient 20 - <30 ng/mL Vit D insufficient 30 - 100 ng/mL Vit D sufficient >100 ng/mL Potential Toxicity Performed By: #### P T #### [facility] [address] [place] [address] Dr. Hugh Landis PROTIMEon 03-15-2022 INR Coag (PPP) [Relative time] 1.11 {INR} Normal [facility] Comment on above: Performed By: #### P T #### [facility] [address] [place] [address] Dr. Hugh Landis INR GUIDELINES SEE BELOW Normal [facility] Comment on above: Result Comment: VIC RED INR: 2.0 - 3.0 CONDITIONS NOT LISTED BELOW 2.5 - 3.5 FOR PROSTHETIC HEART VALVE REPLACEMENT 2.5 - 3.5 RECURRENT THROMBOSIS Performed By: #### P T #### [facility] [address] [place] [address] Dr. Hugh Landis PT Coag (PPP) [Time] 11.7 s Critically high 9.0-11.6 [facility] Comment on above: Performed By: #### P T #### [facility] [address] [place] [address] Dr. Hugh Landis UA (CLEAN/CATCH) CUSTOMER EXPERT/MICRO I F IND.on 03-15-2022 Bilirubin Ql (U) Negative Normal NEGATIVE [facility] Comment on above: Performed By: #### P TT #### [facility] [address] [place] [address] Dr. Hugh Landis Clarity (U) CLEAR Normal CLEAR [facility] Comment on above: Performed By: #### P TT #### [facility] [address] [place] [address] Dr. Hugh Landis Color (U) YELLOW Normal YELLOW [facility] Comment on above: Performed By: #### P TT #### [facility] [address] [place] [address] Dr. Hugh Landis Glucose Ql (U) Negative Normal NEGATIVE [facility] Comment on above: Performed By: #### P TT #### [facility] [address] [place] [address] Dr. Hugh Landis Hemoglobin Ql (U) SMALL Abnormal NEGATIVE [facility] Comment on above: Performed By: #### P TT #### [facility] [address] [place] [address] Dr. Hugh Landis Ketones Ql (U) Negative Normal NEGATIVE [facility] Comment on above: Performed By: #### P TT #### [facility] [address] [place] [address] Dr. Hugh Landis LEUKOCYTES Negative Normal NEGATIVE [facility] Comment on above: Performed By: #### P TT #### [facility] [address] [address] [address] Hugh Landis Nitrite Ql (U) Negative Normal NEGATIVE [facility] Comment on above: Performed By: #### P TT #### [facility] [address] [place] [address] Dr. Hugh Landis pH (U) 5.5 [pH] Normal 5-9 [facility] Comment on above: Performed By: #### P TT #### [facility] [address] [place] [address] Dr. Hugh Landis SPEC GRAVITY 1.025 Normal 1.005-<=1.02 5 [facility] Comment on above: Performed By: #### P TT #### [facility] [address] [place] [address] Dr. Hugh Landis UA PROTEIN Negative Normal NEGATIVE/ TRACE [facility] Comment on above: Performed By: #### P TT #### [facility] [address] [place] [address] Dr. Hugh Landis UR MICRO IND INDICATED Normal [facility] Comment on above: Performed By: #### P TT #### [facility] [address] [place] [address] Dr. Hugh Landis Urobilinogen Qn (U) 0.2 {Dahiana'U}/dL Normal 0.2 - 1. 0 [facility] Comment on above: Performed By: #### P TT #### [facility] [address] [place] [address] Dr. Hugh Landis URINE MICROSCOPIC ONLYon BACTERIA TRACE Abnormal NONE SEEN [facility] Comment on above: Performed By: #### P TT #### [facility] [address] [place] [address] Dr. Hugh Landis Bacteria identified Cx Nom (U) NOT INDICATED Normal [facility] Comment on above: Performed By: #### P TT #### [facility] [address] [place] [address] Dr. Hugh Landis CAST NONE SEEN Normal NONE SEEN [facility] Comment on above: Performed By: #### P TT #### [facility] [address] [place] [address] Dr. Hugh Landis Crystals LM Nom (Urine sed) NONE SEEN Normal NONE SEEN [facility] Comment on above: Performed By: #### P TT #### [facility] [address] [place] [address] Dr. Hugh Landis Epithelial cells LM Ql (Urine sed) RARE Normal NONE SEEN /RARE [facility] Comment on above: Performed By: #### P TT #### [facility] [address] [place] [address] Dr. Hugh Landis MUCOUS NONE SEEN Normal NONE SEEN [facility] Comment on above: Performed By: #### P TT #### [facility] [address] [place] [address] Dr. Hugh Landis RBC 0-2 Normal 0-[address] [facility] Comment on above: Performed By: #### P TT #### [facility] [address] [place] [address] Dr. Hugh Landis WBC 0-2 Abnormal NONE SEEN [facility] Comment on above: Performed By: #### P TT #### [facility] [address] [place] [address] Dr. Hugh Landis MRSA NARES #1on 03-08-2022 MRSA NARES #1 Culture Observations : NO GROWTH OF MRSA AT 48 HOURS. Normal [facility] Comment on above: Performed By: #### B MP #### [facility] [address] [place] [address] Dr. Hugh Landis PROF CHEM 8 (BAS METB)on Anion gap [Moles/Vol] 9.9 mmol/L Normal [facility] Comment on above: Performed By: #### C MP, LIPID, TSH #### [facility] [address] [place] [address] Dr. Hugh Landis Calcium [Mass/Vol] 9.4 mg/dL Normal 8.5-10.1 [facility] Comment on above: Performed By: #### C MP, LIPID, TSH #### [facility] [address] [address] [address] Hugh Landis Chloride [Moles/Vol] 103 mmol/L Normal 98-107 [facility] Comment on above: Performed By: #### C MP, LIPID, TSH #### [facility] [address] [place] [address] Dr. Hugh Landis CO2 [Moles/Vol] 31.6 mmol/L Normal 21.0-32.0 [facility] Comment on above: Performed By: #### C MP, LIPID, TSH #### [facility] [address] [place] [address] Dr. Hugh Landis Creatinine [Mass/Vol] 1.25 mg/dL Normal 0.70-1.30 [facility] Comment on above: Performed By: #### C MP, LIPID, TSH #### [facility] [address] [place] [address] Dr. Hugh Landis EGFR-AF BRUNEIAN >60 Normal >=60 [facility] Comment on above: Performed By: #### C MP, LIPID, TSH #### [facility] [address] [place] [address] Dr. Hugh Landis EGFR-NON AF BRUNEIAN 59 mL/min/1.73m2 Critically low >=60 [facility] Comment on above: Performed By: #### C MP, LIPID, TSH #### [facility] [address] [place] [address] Dr. Hugh Landis Glucose [Mass/Vol] 110 mg/dL Critically high 74-106 [facility] Comment on above: Performed By: #### C MP, LIPID, TSH #### [facility] [address] [place] [address] Dr. Hugh Landis Potassium [Moles/Vol] 3.5 mmol/L Normal 3.5-5.1 [facility] Comment on above: Performed By: #### C MP, LIPID, TSH #### [facility] [address] [place] [address] Dr. Hugh Landis Sodium [Moles/Vol] 141 mmol/L Normal 136-145 [facility] Comment on above: Performed By: #### C MP, LIPID, TSH #### [facility] [address] [place] [address] Dr. Hugh Landis Urea nitrogen [Mass/Vol] 27.0 mg/dL Critically high 7.0-18.0 [facility] Comment on above: Performed By: #### C MP, LIPID, TSH #### [facility] [address] [address] [address] Hugh Landis Urea nitrogen/Creatinine [Mass ratio] 21.6 mg/mg Normal [facility] Comment on above: Performed By: #### C MP, LIPID, TSH #### [facility] [address] [place] [address] Dr. Hugh Landis PTTon 03-08-2022 aPTT Coag (Bld) [Time] 27.0 s Normal 22.3-36.2 [facility] Comment on above: Performed By: #### P TT #### [facility] [address] [place] [address] Dr. Hugh Landis INSULINon 01-25-2022 Insulin 11.1 uIU/mL Normal 2.6-24.9 [facility] Comment on above: Performed By: #### U TOMAS, TSH, CMP, LIPID, T7 #### [facility] [address] [place] [address] Dr. Hugh Landis CBC AUTO DIFFon 01-24-2022 BASO # 0.1 103/ul Normal 0.0-0.1 [facility] Comment on above: Performed By: #### C MP, LIPID, TSH #### [facility] [address] [place] [address] Dr. Hugh Landis Basophils/100 WBC (Bld) 1.3 % Normal 0.2-2.[address] [facility] Comment on above: Performed By: #### C MP, LIPID, TSH #### [facility] [address] [place] [address] Dr. Hugh Landis EO # 0.2 103/ul Normal 0.0-0.[address] [facility] Comment on above: Performed By: #### C MP, LIPID, TSH #### [facility] [address] [place] [address] Dr. Hugh Landis Eosinophils/100 WBC (Bld) 4.7 % Normal 0.9-7.[address] [facility] Comment on above: Performed By: #### C MP, LIPID, TSH #### [facility] [address] [place] [address] Dr. Hugh Landis Erythrocyte distribution width (RBC) [Ratio] 12.6 % Normal 11.0-15.0 [facility] Comment on above: Performed By: #### C MP, LIPID, TSH #### [facility] [address] [place] [address] Dr. Hugh Landis Hematocrit (Bld) [Volume fraction] 39.1 % Critically low 42.0-54.0 [facility] Comment on above: Performed By: #### C MP, LIPID, TSH #### [facility] [address] [place] [address] Dr. Hugh Landis Hemoglobin (Bld) [Mass/Vol] 12.4 g/dL Critically low 14.0-18.[address] [facility] Comment on above: Performed By: #### C MP, LIPID, TSH #### [facility] [address] [place] [address] Dr. Hugh Landis IG # 0.01 10e3/ul Normal 0.00-0.[address] [facility] Comment on above: Performed By: #### C MP, LIPID, TSH #### [facility] [address] [place] [address] Dr. Hugh Landis IG % 0.2 % Normal 0.0-0.[address] [facility] Comment on above: Performed By: #### C MP, LIPID, TSH #### [facility] [address] [address] [address] Hugh Landis LYMPH # 0.9 103/ul Critically low 1.2-3.8 [facility] Comment on above: Performed By: #### C MP, LIPID, TSH #### [facility] [address] [address] [address] Hugh Landis Lymphocytes/100 WBC (Bld) 19.4 % Critically low 20.5-60.0 [facility] Comment on above: Performed By: #### C MP, LIPID, TSH #### [facility] [address] [address] [address] Hugh Landis MANUAL DIFF REQ NO Normal [facility] Comment on above: Performed By: #### C MP, LIPID, TSH #### [facility] [address] [place] [address] Dr. Hugh Landis MCH (RBC) [Entitic mass] 29.2 pg Normal 25.9-34.0 [facility] Comment on above: Performed By: #### C MP, LIPID, TSH #### [facility] [address] [place] [address] Dr. Hugh Landis MCHC (RBC) [Mass/Vol] 31.7 g/dL Normal 29.9-35.2 [facility] Comment on above: Performed By: #### C MP, LIPID, TSH #### [facility] [address] [address] [address] Hugh Landis MCV (RBC) [Entitic vol] 92.0 fL Normal 80.0-94.0 [facility] Comment on above: Performed By: #### C MP, LIPID, TSH #### [facility] [address] [address] [address] Hugh Landis MONO # 0.5 103/ul Normal 0.3-0.8 [facility] Comment on above: Performed By: #### C MP, LIPID, TSH #### [facility] [address] [address] [address] Hugh Landis Monocytes/100 WBC (Bld) 9.6 % Normal 1.7-12.0 [facility] Comment on above: Performed By: #### C MP, LIPID, TSH #### [facility] [address] [address] [address] Hugh Landis NEUT # 3.0 103/ul Normal 1.4-6.5 [facility] Comment on above: Performed By: #### C MP, LIPID, TSH #### [facility] [address] [place] [address] Dr. Hugh Landis Neutrophils/100 WBC (Bld) 64.8 % Normal 43.0-75.0 [facility] Comment on above: Performed By: #### C MP, LIPID, TSH #### [facility] [address] [place] [address] Dr. Hugh Landis Platelet mean volume (Bld) [Entitic vol] 9.4 fL Critically low 9.5-13.5 [facility] Comment on above: Performed By: #### C MP, LIPID, TSH #### [facility] [address] [place] [address] Dr. Hugh Landis PLT 232 103/ul Normal 150-[address] [facility] Comment on above: Performed By: #### C MP, LIPID, TSH #### [facility] [address] [place] [address] Dr. Hugh Landis RBC 4.25 106/ul Critically low 4.70-6.10 [facility] Comment on above: Performed By: #### C MP, LIPID, TSH #### [facility] [address] [place] [address] Dr. Hugh Landis WBC 4.7 103/ul Normal 4.0-11.[address] [facility] Comment on above: Performed By: #### C MP, LIPID, TSH #### [facility] [address] [place] [address] Dr. Hugh Landis FREE THYROXINE INDEX T7on -2021 FTI 2.65 Normal 1.30-4.50 [facility] Comment on above: Performed By: #### B MP #### [facility] [address] [place] [address] Dr. Hugh Landis T3U 34.0 % Normal 33.0-40.0 [facility] Comment on above: Performed By: #### B MP #### [facility] [address] [address] [address] Hugh Landis T4 [Mass/Vol] 7.80 ug/dL Normal 4.50-12.10 [facility] Comment on above: Performed By: #### B MP #### [facility] [address] [address] [address] Hugh Landis GLYCOHEMOGLOBIN A1Con 2021 ADA RECOMMENDATION SEE BELOW Normal [facility] Comment on above: Result Comment: ADA RECOMMENDED LIMIT 4.0 - 6.0 ADA THERAPEUTIC TARGET < 7.0 ACTION SUGGESTED > 7.0 Performed By: #### C MP, LIPID, TSH #### [facility] [address] [place] [address] Dr. Hugh Landis Glucose [Mass/Vol] 123 mg/dL Normal [facility] Comment on above: Performed By: #### C MP, LIPID, TSH #### [facility] [address] [place] [address] Dr. Hugh Landis HbA1c (Bld) [Mass fraction] 5.9 % Normal 4.5-6.2 [facility] Comment on above: Performed By: #### C MP, LIPID, TSH #### [facility] [address] [place] [address] Dr. Hugh Landis LIPID PROFILEon 01-24-2022 CHOL-HDL RATIO NORM SEE BELOW Normal [facility] Comment on above: Result Comment: 3.3 - 4.4 LOW RISK 4.4 - 7.1 AVERAGE RISK 7.1 - 11.0 MODERATE RISK >11.0 HIGH RISK Performed By: #### U TOMAS, TSH, CMP, LIPID, T7 #### [facility] [address] [place] [address] Dr. Hugh Landis Cholesterol [Mass/Vol] 179 mg/dL Normal <=200 [facility] Comment on above: Performed By: #### U TOMAS, TSH, CMP, LIPID, T7 #### [facility] [address] [place] [address] Dr. Hugh Landis Cholesterol in HDL [Mass/Vol] 46 mg/dL Normal 40-60 [facility] Comment on above: Performed By: #### U TOMAS, TSH, CMP, LIPID, T7 #### [facility] [address] [address] [address] Hugh Landis Cholesterol in LDL [Mass/Vol] 100.4 mg/dL Normal [facility] Comment on above: Performed By: #### U TOMAS, TSH, CMP, LIPID, T7 #### [facility] [address] [address] [address] Hugh Landis Cholesterol.total/Ch olesterol in HDL [Mass ratio] 3.9 {ratio} Normal [facility] Comment on above: Performed By: #### U TOMAS, TSH, CMP, LIPID, T7 #### [facility] [address] [address] [address] Hugh Landis HDL NORMAL > or = 60 mg/dl - LO W CARDIOVASCULAR RISK <40 mg/dl - HIGH CARDIOVASCULAR RISK Normal [facility] Comment on above: Performed By: #### U TOMAS, TSH, CMP, LIPID, T7 #### [facility] [address] [address] [address] Hugh Landis LDL CALC NORMAL SEE BELOW Normal [facility] Comment on above: Result Comment: <100 mg/dl OPTIMAL 100 - 129 mg/dl NEAR OR ABOVE OPTIMAL 130 - 159 mg/dl BORDERLINE HIGH 160 - 189 mg/dl HIGH >190 mg/dl VERY HIGH Performed By: #### U TOMAS, TSH, CMP, LIPID, T7 #### [facility] [address] [address] [address] Hugh Landis Triglyceride [Mass/Vol] 163 mg/dL Critically high <=[address] [facility] Comment on above: Performed By: #### U TOMAS, TSH, CMP, LIPID, T7 #### [facility] [address] [address] [address] Hugh Landis VLDL CALC 32.6 mg/dL Normal [facility] Comment on above: Performed By: #### U TOMAS, TSH, CMP, LIPID, T7 #### [facility] [address] [place] [address] Dr. Hugh Landis PROF 14(COMP METB)on 022 Albumin [Mass/Vol] 3.6 g/dL Normal 3.4-5.0 [facility] Comment on above: Performed By: #### U TOMAS, TSH, CMP, LIPID, T7 #### [facility] [address] [place] [address] Dr. Hugh Landis Albumin/Globulin [Mass ratio] 0.9 {ratio} Normal [facility] Comment on above: Performed By: #### U TOMAS, TSH, CMP, LIPID, T7 #### [facility] [address] [place] [address] Dr. Hugh Landis ALP [Catalytic activity/Vol] 81 U/L Normal 46-116 [facility] Comment on above: Performed By: #### U TOMAS, TSH, CMP, LIPID, T7 #### [facility] [address] [place] [address] Dr. Hugh Landis ALT [Catalytic activity/Vol] 19 U/L Normal 16-63 [facility] Comment on above: Performed By: #### U TOMAS, TSH, CMP, LIPID, T7 #### [facility] [address] [place] [address] Dr. Hugh Landis Anion gap [Moles/Vol] 13.4 mmol/L Normal [facility] Comment on above: Performed By: #### U TOMAS, TSH, CMP, LIPID, T7 #### [facility] [address] [place] [address] Dr. Hugh Landis AST [Catalytic activity/Vol] 16 U/L Normal 15-37 [facility] Comment on above: Performed By: #### U TOMAS, TSH, CMP, LIPID, T7 #### [facility] [address] [place] [address] Dr. Hugh Landis Bilirubin [Mass/Vol] 0.5 mg/dL Normal 0.2-1.0 [facility] Comment on above: Performed By: #### U TOMAS, TSH, CMP, LIPID, T7 #### [facility] [address] [place] [address] Dr. Hugh Landis Calcium [Mass/Vol] 9.7 mg/dL Normal 8.5-10.1 [facility] Comment on above: Performed By: #### U TOMAS, TSH, CMP, LIPID, T7 #### [facility] [address] [address] [address] Hugh Landis Chloride [Moles/Vol] 105 mmol/L Normal 98-107 [facility] Comment on above: Performed By: #### U TOMAS, TSH, CMP, LIPID, T7 #### [facility] [address] [address] [address] Hugh Landis CO2 [Moles/Vol] 27.4 mmol/L Normal 21.0-32.0 [facility] Comment on above: Performed By: #### U TOMAS, TSH, CMP, LIPID, T7 #### [facility] [address] [address] [address] Hugh Landis Creatinine [Mass/Vol] 1.37 mg/dL Critically high 0.70-1.30 [facility] Comment on above: Performed By: #### U TOMAS, TSH, CMP, LIPID, T7 #### [facility] [address] [address] [address] Hugh Landis EGFR-AF BRUNEIAN >60 Normal >=60 [facility] Comment on above: Performed By: #### U TOMAS, TSH, CMP, LIPID, T7 #### [facility] [address] [address] [address] Hugh Landis EGFR-NON AF BRUNEIAN 53 mL/min/1.73m2 Critically low >=60 [facility] Comment on above: Performed By: #### U TOMAS, TSH, CMP, LIPID, T7 #### [facility] [address] [address] [address] Hugh Landis Globulin (S) [Mass/Vol] 4.0 g/dL Normal [facility] Comment on above: Performed By: #### U TOMAS, TSH, CMP, LIPID, T7 #### [facility] [address] [address] [address] Hugh Landis Glucose [Mass/Vol] 113 mg/dL Critically high 74-106 [facility] Comment on above: Performed By: #### U TOMSA, TSH, CMP, LIPID, T7 #### [facility] [address] [address] [address] Hugh Landis Potassium [Moles/Vol] 3.8 mmol/L Normal 3.5-5.1 [facility] Comment on above: Performed By: #### U TOMAS, TSH, CMP, LIPID, T7 #### [facility] [address] [address] [address] Hugh Landis Protein [Mass/Vol] 7.6 g/dL Normal 6.4-8.2 [facility] Comment on above: Performed By: #### U TOMAS, TSH, CMP, LIPID, T7 #### [facility] [address] [place] [address] Dr. Hugh Landis Sodium [Moles/Vol] 142 mmol/L Normal 136-145 [facility] Comment on above: Performed By: #### U TOMAS, TSH, CMP, LIPID, T7 #### [facility] [address] [place] [address] Dr. Hugh aLndis Urea nitrogen [Mass/Vol] 21.0 mg/dL Critically high 7.0-18.0 [facility] Comment on above: Performed By: #### U TOMAS, TSH, CMP, LIPID, T7 #### [facility] [address] [place] [address] Dr. Hugh Landis Urea nitrogen/Creatinine [Mass ratio] 15.3 mg/mg Normal [facility] Comment on above: Performed By: #### U TOMAS, TSH, CMP, LIPID, T7 #### [facility] [address] [place] [address] Dr. Hugh Landis TSHon 01-24-2022 TSH 0.663 uIU/mL Normal 0.358-3.740 [facility] Comment on above: Performed By: #### U TOMAS, TSH, CMP, LIPID, T7 #### [facility] [address] [place] [address] Dr. Hugh Landis URIC ACID SERUMon 01-24-2022 Urate [Mass/Vol] 6.9 mg/dL Normal 3.5-7.2 [facility] Comment on above: Performed By: #### B MP #### [facility] [address] [place] [address] Dr. Hugh Landis VITAMIN D 25 OHon 01-24-2022 VIT D 25-OH 37.0 ng/mL Normal [facility] Comment on above: Performed By: #### P TT #### [facility] [address] [place] [address] Dr. Hugh Landis VIT D RANGES SEE BELOW Normal [facility] Comment on above: Result Comment: <20 ng/mL Vit D deficient 20 - <30 ng/mL Vit D insufficient 30 - 100 ng/mL Vit D sufficient >100 ng/mL Potential Toxicity Performed By: #### P TT #### [facility] [address] [place] [address] Dr. Hugh Landis US KIDNEYSon 12-21-2021 [place] [...] Date: 2021-12-21 17:34 Normal [facility] XR ABD FLAT UP_PA Barrett 12-21 [...] by: AUSTIN LARIOS Date: 2021-12-21 18:13 Normal [facility] Urine culture routineOrdered By: Estephanie Lowry on 12-17-2021 Bacteria identified Cx Nom (U) No Growth 2 Days [facility] Chlamydia trachomatis DNA [P resence] in Specimen by MUKUL with probe detectionOrdered By: Estephanie Lowry on 12-15-2021 C. trachomatis DNA MUKUL+probe Ql (Unsp spec) Negative Negative [facility] Chlamydia/GC/Trich NAAon Chlamydia Trachomotis, MUKUL Negative Normal Negative [facility] Comment on above: Order Comment: Reaso n for Exam Dysuria Performed By: #### G CCHLAMTRI #### [facility] , #### CUU #### [facility] [address] Neisseria Gonorrhoeae, MUKUL Negative Normal Negative [facility] Comment on above: Order Comment: Reaso n for Exam Dysuria Performed By: #### G CCHLAMTRI #### [facility] , #### CUU #### [facility] [address] [place] [address] [place] Trichomonas MUKUL Negative Normal Negative [facility] Comment on above: Order Comment: Reaso n for Exam Dysuria Result Comment: Perf ormed at: =G - [facility] [address] [id number] Sped Teacher: Shoshana Camargo MD, Phone: [phone] PERFORMED BY: [address] [id number] PATHOLOGIST MANAGER VALIDATION SABRA SAUNDERS M.D. Performed By: #### G CCHLAMTRI #### [facility] , #### CUU #### [facility] [address] [id number] [facility] Chlamydia/GC/Trich MUKUL Negative Negative [employer] Other Neisseria gonorrhoeae DNA [P resence] in Specimen by MUKUL with probe detectionOrdered By: Estephanie Lowry on 12-15-2021 N. gonorrhoeae DNA MUKUL+probe Ql (Unsp spec) Negative Negative [facility] Trichomonas vaginalis DNA [P resence] in Specimen by MUKUL with probe detectionOrdered By: Estephanie Lowry on 12-15-2021 T. vaginalis DNA MUKUL+probe Ql (Unsp spec) Negative Negative [facility] Comment on above: Performed at: =[address] [id number] Director: Shoshana Camargo MD, Phone: [phone] Urinalysis - AUTOMATEDon Appearance (U) clear [employer] Other Bilirubin Ql (U) Negative [employer] Other Color (U) orange [employer] Other Glucose Ql (U) Negative [employer] Other Hemoglobin Ql (U) moderate [employer] Other Ketones Ql (U) Negative [employer] Other Leukocyte esterase Test strip Ql (U) Negative [employer] Other Nitrite Ql (U) Positive [employer] Other pH (U) 5.5 [pH] [employer] Other Protein Ql (U) Negative [employer] Other Specific gravity (U) [Rel density] 1.015 [employer] Other Urobilinogen (U) [Mass/Vol] 0.2 mg/dL [employer] Other Urinalysis - AUTOMATED [employer] Other Urine Cultureon 12-15-2021 Bacteria identified Cx Nom (U) Reason for Exam Dysuria Urine No Growth 2 Days PERFORMED BY: [id number] PATHOLOGIST MANAGER VALIDATION SABRA SAUNDERS M.D. Normal [facility] Comment on above: Performed By: #### G CCHLAMTRI #### [facility] , #### CUU #### [address] Bacteria identified Cx Nom (U) Work in Field [facility] [employer] Other CULTURE URINEon 11-24-2021 CULTURE URINE Culture Observations : NO GROWTH. Normal [facility] Comment on above: Performed By: #### B MP #### [facility] [address] [address] [address] Hugh Landis PROTEIN ELECTROPHERESIS URIN E RANDOMon 11-17-2021 Albumin, U 33.4 % Normal [facility] Comment on above: Performed By: #### C MP, LIPID, TSH #### [facility] [address] [address] [address] Hugh Landis Alpha-1 Globulin U 4.7 % Normal [facility] Comment on above: Performed By: #### C MP, LIPID, TSH #### [facility] [address] [address] [address] Hugh Landis Alpha-2 Glubulin U 18.6 % Normal [facility] Comment on above: Performed By: #### C MP, LIPID, TSH #### [facility] [address] [address] [address] Hugh Landis Beta Globulin, U 19.9 % Normal [facility] Comment on above: Performed By: #### C MP, LIPID, TSH #### [facility] [address] [address] [address] Hugh Landis Gamma Globulin U 23.4 % Normal [facility] Comment on above: Performed By: #### C MP, LIPID, TSH #### [facility] [address] [address] [address] Hugh Landis M-Tariq, % Not Observed Normal Not Observed [facility] Comment on above: Performed By: #### C MP, LIPID, TSH #### [facility] [address] [address] [address] Hugh Landis PDF . Normal [facility] Comment on above: Performed By: #### C MP, LIPID, TSH #### [facility] [address] [address] [address] Hugh Landis Please note: Comment Normal [facility] Comment on above: Result Comment: Prot ein electrophoresis scan will follow via computer, mail, or drum maker delivery. Performed By: #### C MP, LIPID, TSH #### [facility] [address] [address] [address] Hugh Landis Protein (U) [Mass/Vol] 4.9 mg/dL Normal Not Estab. [facility] Comment on above: Performed By: #### C MP, LIPID, TSH #### [facility] [address] [address] [address] Hugh Landis IMMUNOFIXATION(PRINCE),PROTEIN ELEC(PE),FREon 11-16-2021 Albumin [Mass/Vol] 3.4 g/dL Normal 2.9-4.4 [facility] Comment on above: Performed By: #### C MP, LIPID, TSH #### [facility] [address] [address] [address] Hugh Landis Albumin/Globulin [Mass ratio] 1.0 {ratio} Normal 0.7-1.7 [facility] Comment on above: Performed By: #### C MP, LIPID, TSH #### [facility] [address] [address] [address] Hugh Landis Ccieh-8-Szxssqdk 0.2 g/dL Normal 0.0-0.4 [facility] Comment on above: Performed By: #### C MP, LIPID, TSH #### [facility] [address] [place] [address] Dr. Hugh Landis Ihafd-3-Qprgtcke 1.1 g/dL Critically high 0.4-1.0 [facility] Comment on above: Performed By: #### C MP, LIPID, TSH #### [facility] [address] [place] [address] Dr. Hugh Landis Beta Globulin 1.0 g/dL Normal 0.7-1.3 [facility] Comment on above: Performed By: #### C MP, LIPID, TSH #### [facility] [address] [place] [address] Dr. Hugh Landis Free Mcalester Lt Chains,S 35.7 mg/L Critically high 3.3-19.[address] [facility] Comment on above: Performed By: #### C MP, LIPID, TSH #### [facility] [address] [place] [address] Dr. Hugh Landis Free Lambda Lt Chains,S 21.1 mg/L Normal 5.7-26.[address] [facility] Comment on above: Performed By: #### C MP, LIPID, TSH #### [facility] [address] [place] [address] Dr. Hugh Landis Gamma Globulin 1.2 g/dL Normal 0.4-1.8 [facility] Comment on above: Performed By: #### C MP, LIPID, TSH #### [facility] [address] [place] [address] Dr. Hugh Landis Globulin (S) [Mass/Vol] 3.5 g/dL Normal 2.2-3.[address] [facility] Comment on above: Performed By: #### C MP, LIPID, TSH #### [facility] [address] [place] [address] Dr. Hugh Landis Immunofixation Result, Serum Comment Normal [facility] Comment on above: Result Comment: No m onoclonality detected. Performed By: #### C MP, LIPID, TSH #### [facility] [address] [address] [address] Hugh Landis Immunoglobulin A, Qn, Serum 228 mg/dL Normal 90-386 [facility] Comment on above: Performed By: #### C MP, LIPID, TSH #### [facility] [address] [address] [address] Hugh Landis Immunoglobulin G, Qn, Serum 1221 mg/dL Normal 603-1613 [facility] Comment on above: Performed By: #### C MP, LIPID, TSH #### [facility] [address] [address] [address] Hugh Landis Immunoglobulin M, Qn, Serum 79 mg/dL Normal 20-172 [facility] Comment on above: Performed By: #### C MP, LIPID, TSH #### [facility] [address] [place] [address] Dr. Hugh Landis Mcalester/Lambda Ratio, S 1.69 Critically high 0.26-1.65 [facility] Comment on above: Performed By: #### C MP, LIPID, TSH #### [facility] [address] [address] [address] Hugh Landis M-Tariq Not Observed Normal Not Observed [facility] Comment on above: Performed By: #### C MP, LIPID, TSH #### [facility] [address] [address] [address] Hugh Landis PDF . Normal [facility] Comment on above: Performed By: #### C MP, LIPID, TSH #### [facility] [address] [address] [address] Hugh Landis Please note: Comment Normal [facility] Comment on above: Result Comment: Prot ein electrophoresis scan will follow via computer, mail, or drum maker delivery. Performed By: #### C MP, LIPID, TSH #### [facility] [address] [place] [address] Dr. Hugh Landis Protein [Mass/Vol] 6.9 g/dL Normal 6.0-8.5 [facility] Comment on above: Performed By: #### C MP, LIPID, TSH #### [facility] [address] [address] [address] Hugh Landis PROTEIN AND CREA RANDOM UR R ATIOon 11-16-2021 Creatinine, Urine 54.8 mg/dL Normal Not Estab. [facility] Comment on above: Performed By: #### C MP, LIPID, TSH #### [facility] [address] [place] [address] Dr. Hugh Landis Protein (U) [Mass/Vol] 4.1 mg/dL Normal Not Estab. [facility] Comment on above: Performed By: #### C MP, LIPID, TSH #### [facility] [address] [address] [address] Hugh Landis Protein/Creat Ratio 75 mg/g creat Normal 0-200 [facility] Comment on above: Performed By: #### C MP, LIPID, TSH #### [facility] [address] [place] [address] Dr. Hugh Landis PTH INTACTon 11-15-2021 PTH, Intact 39 pg/mL Normal 15-65 [facility] Comment on above: Performed By: #### P T #### [facility] [address] [place] [address] Dr. Hugh Landis UA RANDOM W/MICROSCOPICon BACTERIA NONE SEEN Normal NONE SEEN [facility] Comment on above: Performed By: #### P TT #### [facility] [address] [place] [address] Dr. Hugh Landis Bilirubin Ql (U) Negative Normal NEGATIVE [facility] Comment on above: Performed By: #### P TT #### [facility] [address] [place] [address] Dr. Hugh Landis CAST NONE SEEN Normal NONE SEEN [facility] Comment on above: Performed By: #### P TT #### [facility] [address] [place] [address] Dr. Hugh Landis Clarity (U) CLEAR Normal CLEAR [facility] Comment on above: Performed By: #### P TT #### [facility] [address] [place] [address] Dr. Hugh Landis Color (U) LT. YELLOW Normal YELLOW [facility] Comment on above: Performed By: #### P TT #### [facility] [address] [place] [address] Dr. Hugh Landis Crystals LM Nom (Urine sed) NONE SEEN Normal NONE SEEN [facility] Comment on above: Performed By: #### P TT #### [facility] [address] [place] [address] Dr. Hugh Landis Epithelial cells LM Ql (Urine sed) NONE SEEN Normal NONE SEEN /RARE [facility] Comment on above: Performed By: #### P TT #### [facility] [address] [place] [address] Dr. Hugh Landis Glucose Ql (U) Negative Normal NEGATIVE [facility] Comment on above: Performed By: #### P TT #### [facility] [address] [place] [address] Dr. Hugh Landis Hemoglobin Ql (U) MODERATE Abnormal NEGATIVE [facility] Comment on above: Performed By: #### P TT #### [facility] [address] [place] [address] Dr. Hugh Landis Ketones Ql (U) Negative Normal NEGATIVE [facility] Comment on above: Performed By: #### P TT #### [facility] [address] [place] [address] Dr. Hugh Landis LEUKOCYTES Negative Normal NEGATIVE [facility] Comment on above: Performed By: #### P TT #### [facility] [address] [place] [address] Dr. Hugh Landis MUCOUS NONE SEEN Normal NONE SEEN [facility] Comment on above: Performed By: #### P TT #### [facility] [address] [place] [address] Dr. Hugh Landis Nitrite Ql (U) Negative Normal NEGATIVE [facility] Comment on above: Performed By: #### P TT #### [facility] [address] [place] [address] Dr. Hugh Landis pH (U) 5.5 [pH] Normal 5-[address] [facility] Comment on above: Performed By: #### P TT #### [facility] [address] [place] [address] Dr. Hugh Landis RBC 5-10 Abnormal 0-[address] [facility] Comment on above: Performed By: #### P TT #### [facility] [address] [place] [address] Dr. Hugh Landis SPEC GRAVITY 1.010 Normal 1.005-<=1.02 [address] [facility] Comment on above: Performed By: #### P TT #### [facility] [address] [place] [address] Dr. Hugh Landis UA PROTEIN Negative Normal NEGATIVE/ TRACE [facility] Comment on above: Performed By: #### P TT #### [facility] [facility] [address] [place] [address] Dr. Hugh Landis Urobilinogen Qn (U) 0.2 {Dahiana'U}/dL Normal 0.2 - 1. [address] [facility] Comment on above: Performed By: #### P TT #### [facility] [address] [place] [address] Dr. Hugh Landis WBC 0-2 Abnormal NONE SEEN [facility] Comment on above: Performed By: #### P TT #### [facility] [address] [place] [address] Dr. Hugh Landis URINE T PROTEIN CREAT RATIOo n 11-15-2021 Protein (U) [Mass/Vol] 10.0 mg/dL Normal <=12.[address] [facility] Comment on above: Performed By: #### B MP #### [facility] [address] [place] [address] Dr. Hugh Landis UR PROT CREAT RAT 0.18 Normal [facility] Comment on above: Performed By: #### B MP #### [facility] [address] [place] [address] Dr. Hugh Landis URINE CREAT 57.11 mg/dL Normal 20.00-300.00 [facility] Comment on above: Performed By: #### B MP #### [facility] [address] [place] [address] Dr. Hugh Landis FERRITINon 11-14-2021 Ferritin [Mass/Vol] 95.0 ng/mL Normal 26.0-388.0 [facility] Comment on above: Performed By: #### C MP, LIPID, TSH #### [facility] [address] [place] [address] Dr. Hugh Landis HEMOGRAM AND PLATELon 2021 Hematocrit (Bld) [Volume fraction] 35.7 % Critically low 42.0-54.0 [facility] Comment on above: Performed By: #### U TOMAS, TSH, CMP, LIPID, T7 #### [facility] [address] [place] [address] Dr. Hugh Landis Hemoglobin (Bld) [Mass/Vol] 11.5 g/dL Critically low 14.0-18.0 [facility] Comment on above: Performed By: #### U TOMAS, TSH, CMP, LIPID, T7 #### [facility] [address] [place] [address] Dr. Hugh Landis MCH (RBC) [Entitic mass] 30.3 pg Normal 25.9-34.0 [facility] Comment on above: Performed By: #### U TOMAS, TSH, CMP, LIPID, T7 #### [facility] [address] [place] [address] Dr. Huhg Landis MCHC (RBC) [Mass/Vol] 32.2 g/dL Normal 29.9-35.2 [facility] Comment on above: Performed By: #### U TOMAS, TSH, CMP, LIPID, T7 #### [facility] [address] [place] [address] Dr. Hugh Landis MCV (RBC) [Entitic vol] 93.9 fL Normal 80.0-94.[address] [facility] Comment on above: Performed By: #### U TOMAS, TSH, CMP, LIPID, T7 #### [facility] [address] [place] [address] Dr. Hugh Landis PLT 254 103/ul Normal 150-[address] [facility] Comment on above: Performed By: #### U TOMAS, TSH, CMP, LIPID, T7 #### [facility] [address] [address] [address] Hugh Landis RBC 3.80 106/ul Critically low 4.70-6.10 [facility] Comment on above: Performed By: #### U TOMAS, TSH, CMP, LIPID, T7 #### [facility] [address] [address] [address] Hugh Landis WBC 6.4 103/ul Normal 4.0-11.[address] [facility] Comment on above: Performed By: #### U TOMAS, TSH, CMP, LIPID, T7 #### [facility] [address] [address] [address] Hugh Landis IRON AND TIBCon 11-14-2021 % SATURATION 27.6 % Normal [facility] Comment on above: Performed By: #### C MP, LIPID, TSH #### [facility] [address] [place] [address] Dr. Hugh Landis Iron [Mass/Vol] 68.0 ug/dL Normal 65.0-175.0 [facility] Comment on above: Performed By: #### C MP, LIPID, TSH #### [facility] [address] [address] [address] Hugh Landis TIBC DIRECT 246.0 ug/dL Critically low 250.0-450.0 [facility] Comment on above: Performed By: #### C MP, LIPID, TSH #### [facility] [address] [place] [address] Dr. Hugh Landis MAGNESIUMon 11-14-2021 Magnesium [Mass/Vol] 1.8 mg/dL Normal 1.8-2.4 [facility] Comment on above: Performed By: #### U TOMAS, TSH, CMP, LIPID, T7 #### [facility] [address] [address] [address] Hugh Landis RENAL FUNCTION PANELon 11-14 Albumin [Mass/Vol] 3.4 g/dL Normal 3.4-5.0 [facility] Comment on above: Performed By: #### U TOMAS, TSH, CMP, LIPID, T7 #### [facility] [address] [place] [address] Dr. Hugh Landis Calcium [Mass/Vol] 9.1 mg/dL Normal 8.5-10.1 [facility] Comment on above: Performed By: #### U TOMAS, TSH, CMP, LIPID, T7 #### [facility] [address] [address] [address] Hugh Landis Chloride [Moles/Vol] 105 mmol/L Normal 98-107 [facility] Comment on above: Performed By: #### U TOMAS, TSH, CMP, LIPID, T7 #### [facility] [address] [address] [address] Hugh Landis CO2 [Moles/Vol] 29.2 mmol/L Normal 21.0-32.0 [facility] Comment on above: Performed By: #### U TOMAS, TSH, CMP, LIPID, T7 #### [facility] [address] [place] [address] Dr. Hugh Landis Creatinine [Mass/Vol] 1.62 mg/dL Critically high 0.70-1.30 [facility] Comment on above: Performed By: #### U TOMAS, TSH, CMP, LIPID, T7 #### [facility] [address] [address] [address] Hugh Landis EGFR-AF BRUNEIAN 53 mL/min/1.73m2 Critically low >=60 [facility] Comment on above: Performed By: #### U TOMAS, TSH, CMP, LIPID, T7 #### [facility] [address] [address] [address] Hugh Landis EGFR-NON AF BRUNEIAN 44 mL/min/1.73m2 Critically low >=60 [facility] Comment on above: Performed By: #### U TOMAS, TSH, CMP, LIPID, T7 #### [facility] [address] [address] [address] Hugh Landis Glucose [Mass/Vol] 136 mg/dL Critically high 74-106 [facility] Comment on above: Performed By: #### U TOMAS, TSH, CMP, LIPID, T7 #### [facility] [address] [address] [address] Hugh Landis Phosphate [Mass/Vol] 2.8 mg/dL Normal 2.6-4.7 [facility] Comment on above: Performed By: #### U TOMAS, TSH, CMP, LIPID, T7 #### [facility] [address] [place] [address] Dr. Hugh Landis Potassium [Moles/Vol] 3.1 mmol/L Critically low 3.5-5.1 [facility] Comment on above: Performed By: #### U TOMAS, TSH, CMP, LIPID, T7 #### [facility] [address] [place] [address] Dr. Hugh Landis Sodium [Moles/Vol] 141 mmol/L Normal 136-145 [facility] Comment on above: Performed By: #### U TOMAS, TSH, CMP, LIPID, T7 #### [facility] [address] [place] [address] Dr. Hugh Landis Urea nitrogen [Mass/Vol] 19.0 mg/dL Critically high 7.0-18.0 [facility] Comment on above: Performed By: #### U TOMAS, TSH, CMP, LIPID, T7 #### [facility] [address] [place] [address] Dr. Hugh Landis URIC ACID SERUMon 11-14-2021 Urate [Mass/Vol] 8.7 mg/dL Critically high 3.5-7.2 [facility] Comment on above: Performed By: #### U TOMAS, TSH, CMP, LIPID, T7 #### [facility] [address] [place] [address] Dr. Hugh Landis VIT B12 AND FOLATEon 022 Cobalamin (Vitamin B12) [Mass/Vol] 373.0 pg/mL Normal 193.0-986.0 [facility] Comment on above: Performed By: #### U TOMAS, TSH, CMP, LIPID, T7 #### [facility] [address] [place] [address] Dr. Hugh Landis FOLATE 14.00 ng/mL Normal 8.60-58.90 [facility] Comment on above: Performed By: #### U TOMAS, TSH, CMP, LIPID, T7 #### [facility] [address] [place], [place] [address] Dr. Hugh Landis VITAMIN D 25 OHon 11-14-2021 VIT D 25-OH 33.8 ng/mL Normal [facility] Comment on above: Performed By: #### U TOMAS, TSH, CMP, LIPID, T7 #### [facility] [address] [place], [place] [address] Dr. Hugh Landis VIT D RANGES SEE BELOW Normal [facility] Comment on above: Result Comment: <20 ng/mL Vit D deficient 20 - <30 ng/mL Vit D insufficient 30 - 100 ng/mL Vit D sufficient >100 ng/mL Potential Toxicity Performed By: #### U TOMAS, TSH, CMP, LIPID, T7 #### [facility] [address] [id number] Hugh Landis US KIDNEYS BLADDERon 022 [...] Date: 2021-11-01 16:44 Normal [facility] XR CHEST 2 Von 11-01-2021 XR [...] Date: 2021-11-01 06:51 Normal [facility] NM LUNG VENT_PERFon 11-01-19 22 NM [...] Date: 2021-10-31 12:35 Normal [facility] PROF CHEM 8 (BAS METB)on Anion gap [Moles/Vol] 17.5 mmol/L Normal [facility] Comment on above: Performed By: #### B MP #### [facility] [address] [place] [address] Dr. Hugh Landis Calcium [Mass/Vol] 9.4 mg/dL Normal 8.5-10.1 [facility] Comment on above: Performed By: #### B MP #### [facility] [address] [place] [address] Dr. Hugh Landis Chloride [Moles/Vol] 100 mmol/L Normal 98-107 [facility] Comment on above: Performed By: #### B MP #### [facility] [address] [address] [address] Hugh Landis CO2 [Moles/Vol] 22.8 mmol/L Normal 21.0-32.0 [facility] Comment on above: Performed By: #### B MP #### [facility] [address] [address] [address] Hugh Landis Creatinine [Mass/Vol] 2.69 mg/dL Critically high 0.70-1.30 [facility] Comment on above: Performed By: #### B MP #### [facility] [address] [address] [address] Hugh Landis EGFR-AF BRUNEIAN 30 mL/min/1.73m2 Critically low >=60 [facility] Comment on above: Performed By: #### B MP #### [facility] [address] [address] [address] Hugh Landis EGFR-NON AF BRUNEIAN 24 mL/min/1.73m2 Critically low >=60 [facility] Comment on above: Performed By: #### B MP #### [facility] [address] [address] [address] Hugh Landis Glucose [Mass/Vol] 117 mg/dL Critically high 74-106 [facility] Comment on above: Performed By: #### B MP #### [facility] [address] [address] [address] Hugh Landis Potassium [Moles/Vol] 4.3 mmol/L Normal 3.5-5.1 [facility] Comment on above: Performed By: #### B MP #### [facility] [address] [place] [address] Dr. Hugh Landis Sodium [Moles/Vol] 136 mmol/L Normal 136-145 [facility] Comment on above: Performed By: #### B MP #### [facility] [address] [place] [address] Dr. Hugh Landis Urea nitrogen [Mass/Vol] 41.0 mg/dL Critically high 7.0-18.0 [facility] Comment on above: Performed By: #### B MP #### [facility] [address] [address] [address] Hugh Landis Urea nitrogen/Creatinine [Mass ratio] 15.2 mg/mg Normal [facility] Comment on above: Performed By: #### B MP #### [facility] [address] [place] [address] Dr. Hugh Landis CBC AUTO DIFFon 10-16-2021 BASO # 0.0 103/ul Normal 0.0-0.1 [facility] Comment on above: Performed By: #### P T #### [facility] [address] [place] [address] Dr. Hugh Landis Basophils/100 WBC (Bld) 0.6 % Normal 0.2-2.0 [facility] Comment on above: Performed By: #### P T #### [facility] [address] [place] [address] Dr. Hugh Landis EO # 0.2 103/ul Normal 0.0-0.[address] [facility] Comment on above: Performed By: #### P T #### [facility] [address] [place] [address] Dr. Hugh Landis Eosinophils/100 WBC (Bld) 2.3 % Normal 0.9-7.0 [facility] Comment on above: Performed By: #### P T #### [facility] [address] [place] [address] Dr. Hugh Landis Erythrocyte distribution width (RBC) [Ratio] 12.7 % Normal 11.0-15.0 [facility] Comment on above: Performed By: #### P T #### [facility] [address] [place] [address] Dr. Hugh Landis Hematocrit (Bld) [Volume fraction] 36.2 % Critically low 42.0-54.0 [facility] Comment on above: Performed By: #### P T #### [facility] [address] [place] [address] Dr. Hugh Landis Hemoglobin (Bld) [Mass/Vol] 11.5 g/dL Critically low 14.0-18.0 [facility] Comment on above: Performed By: #### P T #### [facility] [address] [place] [address] Dr. Hugh Landis IG # 0.02 10e3/ul Normal 0.00-0.[address] [facility] Comment on above: Performed By: #### P T #### [facility] [address] [place] [address] Dr. Hugh Landis IG % 0.3 % Normal 0.0-0.[address] [facility] Comment on above: Performed By: #### P T #### [facility] [address] [place] [address] Dr. Hugh Landis LYMPH # 1.4 103/ul Normal 1.2-3.8 [facility] Comment on above: Performed By: #### P T #### [facility] [address] [place] [address] Dr. Hugh Landis Lymphocytes/100 WBC (Bld) 21.3 % Normal 20.5-60.0 [facility] Comment on above: Performed By: #### P T #### [facility] [address] [place] [address] Dr. Hugh Landis MANUAL DIFF REQ NO Normal [facility] Comment on above: Performed By: #### P T #### [facility] [address] [place] [address] Dr. Hugh Landis MCH (RBC) [Entitic mass] 29.6 pg Normal 25.9-34.0 [facility] Comment on above: Performed By: #### P T #### [facility] [address] [place] [address] Dr. uHgh Landis MCHC (RBC) [Mass/Vol] 31.8 g/dL Normal 29.9-35.2 [facility] Comment on above: Performed By: #### P T #### [facility] [address] [place] [address] Dr. Hugh Landis MCV (RBC) [Entitic vol] 93.1 fL Normal 80.0-94.0 [facility] Comment on above: Performed By: #### P T #### [facility] [address] [place] [address] Dr. Hugh Landis MONO # 0.8 103/ul Normal 0.3-0.8 [facility] Comment on above: Performed By: #### P T #### [facility] [address] [place] [address] Dr. Hugh Landis Monocytes/100 WBC (Bld) 11.5 % Normal 1.7-12.0 [facility] Comment on above: Performed By: #### P T #### [facility] [address] [place] [address] Dr. Hugh Landis NEUT # 4.2 103/ul Normal 1.4-6.5 [facility] Comment on above: Performed By: #### P T #### [facility] [address] [place] [address] Dr. Hugh Landis Neutrophils/100 WBC (Bld) 64.0 % Normal 43.0-75.0 [facility] Comment on above: Performed By: #### P T #### [facility] [address] [place] [address] Dr. Hugh Landis Platelet mean volume (Bld) [Entitic vol] 9.2 fL Critically low 9.5-13.5 [facility] Comment on above: Performed By: #### P T #### [facility] [address] [place] [address] Dr. Hugh Landis PLT 241 103/ul Normal 150-[address] [facility] Comment on above: Performed By: #### P T #### [facility] [address] [place] [address] Dr. Hugh Landis RBC 3.89 106/ul Critically low 4.70-6.10 [facility] Comment on above: Performed By: #### P T #### [facility] [address] [place] [address] Dr. Hugh Landis WBC 6.5 103/ul Normal 4.0-11.[address] [facility] Comment on above: Performed By: #### P T #### [facility] [address] [place] [address] Dr. Hugh Landis [facility] SARS-CoV-2 (COVID-19) RNA MUKUL+probe Ql (Unsp spec) Not detected Normal NOT DETECTED [facility] Comment on above: Result Comment: This test is not yet approved or cleared by the [place] FDA. When there are no FDA-approved or cleared tests available, and other criteria are met, FDA can make tests available under an emergency access mechanism called an Emergency Use Authorization (EUA). The EUA for this test is supported by the [place] of Health and Human Service's (HHS's) declaration [...] TSH, CMP, LIPID, T7 #### [facility] [address] [place] [address] Dr. Hugh Landis PROF CHEM 8 (BAS METB)on Anion gap [Moles/Vol] 16.3 mmol/L Normal [facility] Comment on above: Performed By: #### C MP, LIPID, TSH #### [facility] [address] [place] [address] Dr. Hugh Landis Calcium [Mass/Vol] 9.6 mg/dL Normal 8.5-10.1 [facility] Comment on above: Performed By: #### C MP, LIPID, TSH #### [facility] [address] [place] [address] Dr. Hugh Landis Chloride [Moles/Vol] 103 mmol/L Normal 98-107 [facility] Comment on above: Performed By: #### C MP, LIPID, TSH #### [facility] [address] [place] [address] Dr. Hugh Landis CO2 [Moles/Vol] 21.9 mmol/L Normal 21.0-32.0 [facility] Comment on above: Performed By: #### C MP, LIPID, TSH #### [facility] [address] [place] [address] Dr. Hugh Landis Creatinine [Mass/Vol] 3.58 mg/dL Critically high 0.70-1.30 [facility] Comment on above: Performed By: #### C MP, LIPID, TSH #### [facility] [address] [place] [address] Dr. Hugh Landis EGFR-AF BRUNEIAN 21 mL/min/1.73m2 Critically low >=60 [facility] Comment on above: Performed By: #### C MP, LIPID, TSH #### [facility] [address] [place] [address] Dr. Hugh Landis EGFR-NON AF BRUNEIAN 18 mL/min/1.73m2 Critically low >=60 [facility] Comment on above: Performed By: #### C MP, LIPID, TSH #### [facility] [address] [place] [address] Dr. Hugh Landis Glucose [Mass/Vol] 115 mg/dL Critically high 74-106 [facility] Comment on above: Performed By: #### C MP, LIPID, TSH #### [facility] [address] [place] [address] Dr. Hugh Landis Potassium [Moles/Vol] 5.2 mmol/L Critically high 3.5-5.1 [facility] Comment on above: Performed By: #### C MP, LIPID, TSH #### [facility] [address] [place] [address] Dr. Hugh Landis Sodium [Moles/Vol] 136 mmol/L Normal 136-145 [facility] Comment on above: Performed By: #### C MP, LIPID, TSH #### [facility] [address] [place] [address] Dr. Hugh Landis Urea nitrogen [Mass/Vol] 54.0 mg/dL Critically high 7.0-18.0 [facility] Comment on above: Performed By: #### C MP, LIPID, TSH #### [facility] [address] [place] [address] Dr. Hugh Landis Urea nitrogen/Creatinine [Mass ratio] 15.1 mg/mg Normal [facility] Comment on above: Performed By: #### C MP, LIPID, TSH #### [facility] [address] [place] [address] Dr. Hugh Landis MRSA COLONIZATION SCREENING CULTUREon 10-09-2021 MRSA Screening Culture Negative Normal [facility] Comment on above: Performed By: #### C MP, LIPID, TSH #### [facility] [address] [place] [address] Dr. Hugh Landis CBC AUTO DIFFon 10-06-2021 BASO # 0.0 103/ul Normal 0.0-0.1 [facility] Comment on above: Performed By: #### U TOMAS, TSH, CMP, LIPID, T7 #### [facility] [address] [place] [address] Dr. Hugh Landis Basophils/100 WBC (Bld) 0.3 % Normal 0.2-2.[address] [facility] Comment on above: Performed By: #### U TOMAS, TSH, CMP, LIPID, T7 #### [facility] [address] [place] [address] Dr. Hugh Landis EO # 0.1 103/ul Normal 0.0-0.[address] [facility] Comment on above: Performed By: #### U TOMAS, TSH, CMP, LIPID, T7 #### [facility] [address] [place] [address] Dr. Hugh Landis Eosinophils/100 WBC (Bld) 2.3 % Normal 0.9-7.[address] [facility] Comment on above: Performed By: #### U TOMAS, TSH, CMP, LIPID, T7 #### [facility] [address] [place] [address] Dr. Hugh Landis Erythrocyte distribution width (RBC) [Ratio] 13.3 % Normal 11.0-15.0 [facility] Comment on above: Performed By: #### U TOMAS, TSH, CMP, LIPID, T7 #### [facility] [address] [place] [address] Dr. Hugh Landis Hematocrit (Bld) [Volume fraction] 36.5 % Critically low 42.0-54.[address] [facility] Comment on above: Performed By: #### U TOMAS, TSH, CMP, LIPID, T7 #### [facility] [address] [place] [address] Dr. Hugh Landis Hemoglobin (Bld) [Mass/Vol] 11.7 g/dL Critically low 14.0-18.0 [facility] Comment on above: Performed By: #### U TOMAS, TSH, CMP, LIPID, T7 #### [facility] [address] [address] [address] Hugh Landis IG # 0.02 10e3/ul Normal 0.00-0.03 [facility] Comment on above: Performed By: #### U TOMAS, TSH, CMP, LIPID, T7 #### [facility] [address] [address] [address] Hugh Landis IG % 0.3 % Normal 0.0-0.5 [facility] Comment on above: Performed By: #### U TOMAS, TSH, CMP, LIPID, T7 #### [facility] [address] [place] [address] Dr. Hugh Landis LYMPH # 1.3 103/ul Normal 1.2-3.8 [facility] Comment on above: Performed By: #### U TOMAS, TSH, CMP, LIPID, T7 #### [facility] [address] [place] [address] Dr. Hugh Landis Lymphocytes/100 WBC (Bld) 21.9 % Normal 20.5-60.0 [facility] Comment on above: Performed By: #### U TOMAS, TSH, CMP, LIPID, T7 #### [facility] [address] [place] [address] Dr. Hugh Landis MANUAL DIFF REQ NO Normal [facility] Comment on above: Performed By: #### U TOMSA, TSH, CMP, LIPID, T7 #### [facility] [address] [place] [address] Dr. Hugh Landis MCH (RBC) [Entitic mass] 29.7 pg Normal 25.9-34.0 [facility] Comment on above: Performed By: #### U TOMAS, TSH, CMP, LIPID, T7 #### [facility] [address] [place] [address] Dr. Hugh Landis MCHC (RBC) [Mass/Vol] 32.1 g/dL Normal 29.9-35.2 [facility] Comment on above: Performed By: #### U TOMAS, TSH, CMP, LIPID, T7 #### [facility] [address] [place] [address] Dr. Hugh Landis MCV (RBC) [Entitic vol] 92.6 fL Normal 80.0-94.0 [facility] Comment on above: Performed By: #### U TOMAS, TSH, CMP, LIPID, T7 #### [facility] [address] [address] [address] Hugh Landis MONO # 0.7 103/ul Normal 0.3-0.[address] [facility] Comment on above: Performed By: #### U TOMAS, TSH, CMP, LIPID, T7 #### [facility] [facility] [address] [address] [address] Hugh Landis Monocytes/100 WBC (Bld) 11.3 % Normal 1.7-12.[address] [facility] Comment on above: Performed By: #### U TOMAS, TSH, CMP, LIPID, T7 #### [facility] [address] [address] [address] Hugh Landis NEUT # 3.7 103/ul Normal 1.4-6.[address] [facility] Comment on above: Performed By: #### U TOMAS, TSH, CMP, LIPID, T7 #### [facility] [address] [place] [address] Dr. Hugh Landis Neutrophils/100 WBC (Bld) 63.9 % Normal 43.0-75.[address] [facility] Comment on above: Performed By: #### U TOMAS, TSH, CMP, LIPID, T7 #### [facility] [address] [address] [address] Hugh Landis Platelet mean volume (Bld) [Entitic vol] 8.9 fL Critically low 9.5-13.[address] [facility] Comment on above: Performed By: #### U TOMAS, TSH, CMP, LIPID, T7 #### [facility] [address] [address] [address] Hugh Landis PLT 257 103/ul Normal 150-[address] [facility] Comment on above: Performed By: #### U TOMAS, TSH, CMP, LIPID, T7 #### [facility] [address] [address] [address] Hugh Landis RBC 3.94 106/ul Critically low 4.70-6.10 [facility] Comment on above: Performed By: #### U TOMAS, TSH, CMP, LIPID, T7 #### [facility] [address] [address] [address] Hugh Landis WBC 5.8 103/ul Normal 4.0-11.0 [facility] Comment on above: Performed By: #### U TOMAS, TSH, CMP, LIPID, T7 #### [facility] [address] [address] [address] Hugh Landis GLYCOHEMOGLOBIN A1Con 2021 ADA RECOMMENDATION SEE BELOW Normal [facility] Comment on above: Result Comment: ADA RECOMMENDED LIMIT 4.0 - 6.0 ADA THERAPEUTIC TARGET < 7.0 ACTION SUGGESTED > 7.0 Performed By: #### U TOMAS, TSH, CMP, LIPID, T7 #### [facility] [address] [address] [address] Hugh Landis Glucose [Mass/Vol] 134 mg/dL Normal [facility] Comment on above: Performed By: #### U TOMAS, TSH, CMP, LIPID, T7 #### [facility] [address] [address] [address] Hugh Landis HbA1c (Bld) [Mass fraction] 6.3 % Critically high 4.5-6.2 [facility] Comment on above: Performed By: #### U TOMAS, TSH, CMP, LIPID, T7 #### [facility] [address] [address] [address] Hugh Landis PROF CHEM 8 (BAS METB)on Anion gap [Moles/Vol] 17.6 mmol/L Normal [facility] Comment on above: Performed By: #### C MP, LIPID, TSH #### [facility] [address] [address] [address] Hugh Landis Calcium [Mass/Vol] 9.5 mg/dL Normal 8.5-10.1 [facility] Comment on above: Performed By: #### C MP, LIPID, TSH #### [facility] [address] [address] [address] Hugh Landis Chloride [Moles/Vol] 102 mmol/L Normal 98-107 [facility] Comment on above: Performed By: #### C MP, LIPID, TSH #### [facility] [address] [place] [address] Dr. Hugh Landis CO2 [Moles/Vol] 22.2 mmol/L Normal 21.0-32.0 [facility] Comment on above: Performed By: #### C MP, LIPID, TSH #### [facility] [address] [place] [address] Dr. Hugh Landis Creatinine [Mass/Vol] 2.94 mg/dL Critically high 0.70-1.30 [facility] Comment on above: Performed By: #### C MP, LIPID, TSH #### [facility] [address] [place] [address] Dr. Hugh Landis EGFR-AF BRUNEIAN 27 mL/min/1.73m2 Critically low >=60 [facility] Comment on above: Performed By: #### C MP, LIPID, TSH #### [facility] [address] [place] [address] Dr. Hugh Landis EGFR-NON AF BRUNEIAN 22 mL/min/1.73m2 Critically low >=60 [facility] Comment on above: Performed By: #### C MP, LIPID, TSH #### [facility] [address] [place] [address] Dr. Hugh Landis Glucose [Mass/Vol] 234 mg/dL Critically high 74-106 [facility] Comment on above: Performed By: #### C MP, LIPID, TSH #### [facility] [address] [place] [address] Dr. Hugh Landis Potassium [Moles/Vol] 5.8 mmol/L Critically high 3.5-5.1 [facility] Comment on above: Performed By: #### C MP, LIPID, TSH #### [facility] [address] [place] [address] Dr. Hugh Landis Sodium [Moles/Vol] 136 mmol/L Normal 136-145 [facility] Comment on above: Performed By: #### C MP, LIPID, TSH #### [facility] [address] [address] [address] Hugh Landis Urea nitrogen [Mass/Vol] 46.0 mg/dL Critically high 7.0-18.[address] [facility] Comment on above: Performed By: #### C MP, LIPID, TSH #### [facility] [address] [address] [address] Hugh Landis Urea nitrogen/Creatinine [Mass ratio] 15.6 mg/mg Normal [facility] Comment on above: Performed By: #### C MP, LIPID, TSH #### [facility] [address] [address] [address] Hugh Landis PROTIMEon 10-06-2021 INR Coag (PPP) [Relative time] 1.22 {INR} Normal [facility] Comment on above: Performed By: #### U TOMAS, TSH, CMP, LIPID, T7 #### [facility] [address] [place] [address] Dr. Hugh Landis INR GUIDELINES SEE BELOW Normal [facility] Comment on above: Result Comment: VIC RED INR: 2.0 - 3.0 CONDITIONS NOT LISTED BELOW 2.5 - 3.5 FOR PROSTHETIC HEART VALVE REPLACEMENT 2.5 - 3.5 RECURRENT THROMBOSIS Performed By: #### U TOMAS, TSH, CMP, LIPID, T7 #### [facility] [address] [place] [address] Dr. Hugh Landis PT Coag (PPP) [Time] 13.0 s Critically high 9.0-11.[address] [facility] Comment on above: Performed By: #### U TOMAS, TSH, CMP, LIPID, T7 #### [facility] [address] [place] [address] Dr. Hugh Landis PTTon 10-06-2021 aPTT Coag (Bld) [Time] 30.6 s Normal 22.3-36.[address] [facility] Comment on above: Performed By: #### U TOMAS, TSH, CMP, LIPID, T7 #### [facility] [address] [place] [address] Dr. Hugh Landis UA RANDOMon 10-06-2021 Bilirubin Ql (U) Negative Normal NEGATIVE [facility] Comment on above: Performed By: #### C MP, LIPID, TSH #### [facility] [address] [address] [address] Hugh Landis Clarity (U) CLEAR Normal CLEAR [facility] Comment on above: Performed By: #### C MP, LIPID, TSH #### [facility] [address] [address] [address] Hugh Landis Color (U) LT. YELLOW Normal YELLOW [facility] Comment on above: Performed By: #### C MP, LIPID, TSH #### [facility] [address] [address] [address] Hugh Landis Glucose Ql (U) Negative Normal NEGATIVE [facility] Comment on above: Performed By: #### C MP, LIPID, TSH #### [facility] [address] [place] [address] Dr. Hugh Landis Hemoglobin Ql (U) Negative Normal NEGATIVE [facility] Comment on above: Performed By: #### C MP, LIPID, TSH #### [facility] [address] [place] [address] Dr. Hugh Landis Ketones Ql (U) Negative Normal NEGATIVE [facility] Comment on above: Performed By: #### C MP, LIPID, TSH #### [facility] [address] [place] [address] Dr. Hugh Landis LEUKOCYTES Negative Normal NEGATIVE [facility] Comment on above: Performed By: #### C MP, LIPID, TSH #### [facility] [address] [address] [address] Hugh Landis Nitrite Ql (U) Negative Normal NEGATIVE [facility] Comment on above: Performed By: #### C MP, LIPID, TSH #### [facility] [address] [address] [address] Hugh Landis pH (U) 5.5 [pH] Normal 5-9 [facility] Comment on above: Performed By: #### C MP, LIPID, TSH #### [facility] [address] [address] [address] Hugh Landis SPEC GRAVITY 1.020 Normal 1.005-<=1.02 [address] [facility] Comment on above: Performed By: #### C MP, LIPID, TSH #### [facility] [address] [place] [address] Dr. Hugh Landis UA PROTEIN Negative Normal NEGATIVE/ TRACE [facility] Comment on above: Performed By: #### C MP, LIPID, TSH #### [facility] [address] [place] [address] Dr. Hugh Landis Urobilinogen Qn (U) 0.2 {Dahiana'U}/dL Normal 0.2 - 1. [address] [facility] Comment on above: Performed By: #### C MP, LIPID, TSH #### [facility] [address] [place] [address] Dr. Hugh Landis CBC AUTO DIFFon 09-25-2021 BASO # 0.0 103/ul Normal 0.0-0.[address] [facility] Comment on above: Performed By: #### U TOMAS, TSH, CMP, LIPID, T7 #### [facility] [address] [place] [address] Dr. Hugh Landis Basophils/100 WBC (Bld) 0.4 % Normal 0.2-2.[address] [facility] Comment on above: Performed By: #### U TOMAS, TSH, CMP, LIPID, T7 #### [facility] [address] [place] [address] Dr. Hugh Landis EO # 0.1 103/ul Normal 0.0-0.[address] [facility] Comment on above: Performed By: #### U TOMAS, TSH, CMP, LIPID, T7 #### [facility] [address] [place] [address] Dr. Hugh Landis Eosinophils/100 WBC (Bld) 1.7 % Normal 0.9-7.[address] [facility] Comment on above: Performed By: #### U TOMAS, TSH, CMP, LIPID, T7 #### [facility] [address] [place] [address] Dr. Hugh Landis Erythrocyte distribution width (RBC) [Ratio] 13.5 % Normal 11.0-15.[address] [facility] Comment on above: Performed By: #### U TOMAS, TSH, CMP, LIPID, T7 #### [facility] [address] [place] [address] Dr. Hugh Landis Hematocrit (Bld) [Volume fraction] 36.0 % Critically low 42.0-54.0 [facility] Comment on above: Performed By: #### U TOMAS, TSH, CMP, LIPID, T7 #### [facility] [address] [place] [address] Dr. Hugh Landis Hemoglobin (Bld) [Mass/Vol] 11.7 g/dL Critically low 14.0-18.0 [facility] Comment on above: Performed By: #### U TOMAS, TSH, CMP, LIPID, T7 #### [facility] [address] [place] [address] Dr. Hugh Landis IG # 0.02 10e3/ul Normal 0.00-0.03 [facility] Comment on above: Performed By: #### U TOMAS, TSH, CMP, LIPID, T7 #### [facility] [address] [place] [address] Dr. Hugh Landis IG % 0.3 % Normal 0.0-0.5 [facility] Comment on above: Performed By: #### U TOMAS, TSH, CMP, LIPID, T7 #### [facility] [address] [place] [address] Dr. Hugh Landis LYMPH # 1.3 103/ul Normal 1.2-3.[address] [facility] Comment on above: Performed By: #### U TOMAS, TSH, CMP, LIPID, T7 #### [facility] [address] [place] [address] Dr. Hugh Landis Lymphocytes/100 WBC (Bld) 18.3 % Critically low 20.5-60.[address] [facility] Comment on above: Performed By: #### U TOMAS, TSH, CMP, LIPID, T7 #### [facility] [address] [place] [address] Dr. Hugh Landis MANUAL DIFF REQ NO Normal [facility] Comment on above: Performed By: #### U TOMAS, TSH, CMP, LIPID, T7 #### [facility] [address] [place] [address] Dr. Hugh Landis MCH (RBC) [Entitic mass] 29.4 pg Normal 25.9-34.[address] [facility] Comment on above: Performed By: #### U TOMAS, TSH, CMP, LIPID, T7 #### [facility] [address] [place] [address] Dr. Hugh Landis MCHC (RBC) [Mass/Vol] 32.5 g/dL Normal 29.9-35.[address] [facility] Comment on above: Performed By: #### U TOMAS, TSH, CMP, LIPID, T7 #### [facility] [address] [place] [address] Dr. Hugh Landis MCV (RBC) [Entitic vol] 90.5 fL Normal 80.0-94.0 [facility] Comment on above: Performed By: #### U TOMAS, TSH, CMP, LIPID, T7 #### [facility] [address] [place] [address] Dr. Hugh Landis MONO # 0.6 103/ul Normal 0.3-0.[address] [facility] Comment on above: Performed By: #### U TOMAS, TSH, CMP, LIPID, T7 #### [facility] [address] [place] [address] Dr. Hugh Landis Monocytes/100 WBC (Bld) 8.6 % Normal 1.7-12.0 [facility] Comment on above: Performed By: #### U TOMAS, TSH, CMP, LIPID, T7 #### [facility] [address] [place] [address] Dr. Hugh Landis NEUT # 4.9 103/ul Normal 1.4-6.[address] [facility] Comment on above: Performed By: #### U TOMAS, TSH, CMP, LIPID, T7 #### [facility] [address] [place] [address] Dr. Hugh Landis Neutrophils/100 WBC (Bld) 70.7 % Normal 43.0-75.0 [facility] Comment on above: Performed By: #### U TOMAS, TSH, CMP, LIPID, T7 #### [facility] [address] [address] [address] Hugh Landis Platelet mean volume (Bld) [Entitic vol] 8.8 fL Critically low 9.5-13.[address] [facility] Comment on above: Performed By: #### U TOMAS, TSH, CMP, LIPID, T7 #### [facility] [address] [place] [address] Dr. Hugh Landis PLT 270 103/ul Normal 150-[address] [facility] Comment on above: Performed By: #### U TOMAS, TSH, CMP, LIPID, T7 #### [facility] [address] [place] [address] Dr. Hugh Landis RBC 3.98 106/ul Critically low 4.70-6.10 [facility] Comment on above: Performed By: #### U TOMAS, TSH, CMP, LIPID, T7 #### [facility] [address] [place] [address] Dr. Hugh Landis WBC 6.9 103/ul Normal 4.0-11.0 [facility] Comment on above: Performed By: #### U TOMAS, TSH, CMP, LIPID, T7 #### [facility] [address] [place] [address] Dr. Hugh Landis CRPon 09-25-2021 CRP [Mass/Vol] mg/L Normal <=1.0 [facility] Comment on above: Performed By: #### P T #### [facility] [address] [place] [address] Dr. Hugh Landis CULTURE BLOODon 09-25-2021 Microscopic examination of blood, culture Culture Observations: NO GROWTH AT 5 DAYS. Normal [facility] Comment on above: Performed By: #### B MP #### [facility] [address] [place] [address] Dr. Hugh Landis Microscopic examination of blood, culture Culture Observations: NO GROWTH AT 5 DAYS. Normal [facility] Comment on above: Performed By: #### B MP #### [facility] [address] [place] [address] Dr. Hugh Landis IRONon 09-25-2021 Iron [Mass/Vol] 62.0 ug/dL Critically low 65.0-175.0 [facility] Comment on above: Performed By: #### B MP #### [facility] [address] [address] [address] Hugh Landis SED RATE OZARKERGRENon 2021 SED RATE 102 mm/hr Critically high <=20 [facility] Comment on above: Performed By: #### C MP, LIPID, TSH #### [facility] [address] [place] [address] Dr. uHgh Landis NM BONE IMAGE 3 PHASEon 08-25 [...] Date: 2021-09-05 16:15 [address] [facility] CREATININEon 08-25-2021 Creatinine [Mass/Vol] 1.92 mg/dL Critically high 0.70-1.30 [facility] Comment on above: Performed By: #### C MP, LIPID, TSH #### [facility] [address] [place] [address] Dr. Hugh Landis EGFR-AF BRUNEIAN 44 mL/min/1.73m2 Critically low >=60 [facility] Comment on above: Performed By: #### C MP, LIPID, TSH #### [facility] [address] [place] [address] Dr. Hugh Landis EGFR-NON AF BRUNEIAN 36 mL/min/1.73m2 Critically low >=60 [facility] Comment on above: Performed By: #### C MP, LIPID, TSH #### [facility] [address] [address] [address] Hugh Landis CTA CHEST WO W [...] Date: 2021-08-25 10:16 Normal [facility] CBC AUTO DIFFon 08-18-2021 BASO # 0.0 103/ul Normal 0.0-0.1 [facility] Comment on above: Performed By: #### C MP, LIPID, TSH #### [facility] [address] [address] [address] Hugh Landis Basophils/100 WBC (Bld) 0.4 % Normal 0.2-2.0 [facility] Comment on above: Performed By: #### C MP, LIPID, TSH #### [facility] [address] [address] [address] Hugh Landis EO # 0.1 103/ul Normal 0.0-0.7 [facility] Comment on above: Performed By: #### C MP, LIPID, TSH #### [facility] [address] [address] [address] Hugh Landis Eosinophils/100 WBC (Bld) 1.8 % Normal 0.9-7.0 [facility] Comment on above: Performed By: #### C MP, LIPID, TSH #### [facility] [address] [place] [address] Dr. Hugh Landis Erythrocyte distribution width (RBC) [Ratio] 13.3 % Normal 11.0-15.0 [facility] Comment on above: Performed By: #### C MP, LIPID, TSH #### [facility] [address] [place] [address] Dr. Hugh Landis Hematocrit (Bld) [Volume fraction] 34.7 % Critically low 42.0-54.[address] [facility] Comment on above: Performed By: #### C MP, LIPID, TSH #### [facility] [address] [place] [address] Dr. Hugh Landis Hemoglobin (Bld) [Mass/Vol] 11.3 g/dL Critically low 14.0-18.0 [facility] Comment on above: Performed By: #### C MP, LIPID, TSH #### [facility] [address] [place] [address] Dr. Hugh Landis IG # 0.05 10e3/ul Critically high 0.00-0.03 [facility] Comment on above: Performed By: #### C MP, LIPID, TSH #### [facility] [address] [place] [address] Dr. Hugh Landis IG % 0.7 % Critically high 0.0-0.5 [facility] Comment on above: Performed By: #### C MP, LIPID, TSH #### [facility] [address] [place] [address] Dr. Hugh Landis LYMPH # 1.1 103/ul Critically low 1.2-3.8 [facility] Comment on above: Performed By: #### C MP, LIPID, TSH #### [facility] [address] [place] [address] Dr. Hugh Landis Lymphocytes/100 WBC (Bld) 16.0 % Critically low 20.5-60.0 [facility] Comment on above: Performed By: #### C MP, LIPID, TSH #### [facility] [address] [place] [address] Dr. Hugh Landis MANUAL DIFF REQ NO Normal [facility] Comment on above: Performed By: #### C MP, LIPID, TSH #### [facility] [address] [place] [address] Dr. Hugh Landis MCH (RBC) [Entitic mass] 29.7 pg Normal 25.9-34.[address] [facility] Comment on above: Performed By: #### C MP, LIPID, TSH #### [facility] [address] [place] [address] Dr. Hugh Landis MCHC (RBC) [Mass/Vol] 32.6 g/dL Normal 29.9-35.[address] [facility] Comment on above: Performed By: #### C MP, LIPID, TSH #### [facility] [address] [place] [address] Dr. Hugh Landis MCV (RBC) [Entitic vol] 91.3 fL Normal 80.0-94.0 [facility] Comment on above: Performed By: #### C MP, LIPID, TSH #### [facility] [address] [place] [address] Dr. Hugh Landis MONO # 0.7 103/ul Normal 0.3-0.[address] [facility] Comment on above: Performed By: #### C MP, LIPID, TSH #### [facility] [address] [place] [address] Dr. Hugh Landis Monocytes/100 WBC (Bld) 9.7 % Normal 1.7-12.[address] [facility] Comment on above: Performed By: #### C MP, LIPID, TSH #### [facility] [address] [place] [address] Dr. Hugh Landis NEUT # 4.9 103/ul Normal 1.4-6.[address] [facility] Comment on above: Performed By: #### C MP, LIPID, TSH #### [facility] [address] [place] [address] Dr. Hugh Landis Neutrophils/100 WBC (Bld) 71.4 % Normal 43.0-75.[address] [facility] Comment on above: Performed By: #### C MP, LIPID, TSH #### [facility] [address] [address] [address] Hugh Landis Platelet mean volume (Bld) [Entitic vol] 9.0 fL Critically low 9.5-13.5 [facility] Comment on above: Performed By: #### C MP, LIPID, TSH #### [facility] [address] [address] [address] Hugh Landis PLT 264 103/ul Normal 150-450 [facility] Comment on above: Performed By: #### C MP, LIPID, TSH #### [facility] [address] [address] [address] Hugh Landis RBC 3.80 106/ul Critically low 4.70-6.10 [facility] Comment on above: Performed By: #### C MP, LIPID, TSH #### [facility] [address] [place] [address] Dr. Hugh Landis WBC 6.8 103/ul Normal 4.0-11.0 [facility] Comment on above: Performed By: #### C MP, LIPID, TSH #### [facility] [address] [place] [address] Dr. Hugh Landis PROF 14(COMP METB)on 022 Albumin [Mass/Vol] 3.5 g/dL Normal 3.4-5.0 [facility] Comment on above: Performed By: #### U TOMAS, TSH, CMP, LIPID, T7 #### [facility] [address] [place] [address] Dr. Hugh Landis Albumin/Globulin [Mass ratio] 0.8 {ratio} Normal [facility] Comment on above: Performed By: #### U TOMAS, TSH, CMP, LIPID, T7 #### [facility] [address] [place] [address] Dr. Hugh Landis ALP [Catalytic activity/Vol] 63 U/L Normal 46-116 [facility] Comment on above: Performed By: #### U TOMAS, TSH, CMP, LIPID, T7 #### [facility] [address] [address] [address] Hugh Landis ALT [Catalytic activity/Vol] 26 U/L Normal 16-63 [facility] Comment on above: Performed By: #### U TOMAS, TSH, CMP, LIPID, T7 #### [facility] [address] [address] [address] Hugh Landis Anion gap [Moles/Vol] 12.7 mmol/L Normal [facility] Comment on above: Performed By: #### U TOMAS, TSH, CMP, LIPID, T7 #### [facility] [address] [address] [address] Hugh Landis AST [Catalytic activity/Vol] 14 U/L Critically low 15-37 [facility] Comment on above: Performed By: #### U TOMAS, TSH, CMP, LIPID, T7 #### [facility] [address] [address] [address] Hugh Landis Bilirubin [Mass/Vol] 0.3 mg/dL Normal 0.2-1.0 [facility] Comment on above: Performed By: #### U TOMAS, TSH, CMP, LIPID, T7 #### [facility] [address] [address] [address] Hugh Landis Calcium [Mass/Vol] 9.2 mg/dL Normal 8.5-10.1 [facility] [facility] Comment on above: Performed By: #### U TOMAS, TSH, CMP, LIPID, T7 #### [facility] [address] [address] [address] Hugh Landis Chloride [Moles/Vol] 105 mmol/L Normal 98-[address] [facility] Comment on above: Performed By: #### U TOMAS, TSH, CMP, LIPID, T7 #### [facility] [address] [address] [address] Hugh Landis CO2 [Moles/Vol] 25.5 mmol/L Normal 21.0-32.0 [facility] Comment on above: Performed By: #### U TOMAS, TSH, CMP, LIPID, T7 #### [facility] [address] [address] [address] Hugh Landis Creatinine [Mass/Vol] 2.46 mg/dL Critically high 0.70-1.30 [facility] Comment on above: Performed By: #### U TOMAS, TSH, CMP, LIPID, T7 #### [facility] [address] [address] [address] Hugh Landis EGFR-AF BRUNEIAN 33 mL/min/1.73m2 Critically low >=60 [facility] Comment on above: Performed By: #### U TOMAS, TSH, CMP, LIPID, T7 #### [facility] [address] [address] [address] Hugh Landis EGFR-NON AF BRUNEIAN 27 mL/min/1.73m2 Critically low >=60 [facility] Comment on above: Performed By: #### U TOMAS, TSH, CMP, LIPID, T7 #### [facility] [address] [address] [address] Hugh Landis Globulin (S) [Mass/Vol] 4.5 g/dL Normal [facility] Comment on above: Performed By: #### U TOMAS, TSH, CMP, LIPID, T7 #### [facility] [address] [address] [address] Hugh Landis Glucose [Mass/Vol] 119 mg/dL Critically high 74-106 [facility] Comment on above: Performed By: #### U TOMAS, TSH, CMP, LIPID, T7 #### [facility] [address] [address] [address] Hugh Landis Potassium [Moles/Vol] 4.2 mmol/L Normal 3.5-5.1 [facility] Comment on above: Performed By: #### U TOMAS, TSH, CMP, LIPID, T7 #### [facility] [address] [address] [address] Hugh Landis Protein [Mass/Vol] 8.0 g/dL Normal 6.4-8.2 [facility] Comment on above: Performed By: #### U TOMAS, TSH, CMP, LIPID, T7 #### [facility] [address] [address] [address] Hugh Landis Sodium [Moles/Vol] 139 mmol/L Normal 136-145 [facility] Comment on above: Performed By: #### U TOMAS, TSH, CMP, LIPID, T7 #### [facility] [address] [address] [address] Hugh Landis Urea nitrogen [Mass/Vol] 49.0 mg/dL Critically high 7.0-18.0 [facility] Comment on above: Performed By: #### U TOMAS, TSH, CMP, LIPID, T7 #### [facility] [id number] Hugh Landis Urea nitrogen/Creatinine [Mass ratio] 19.9 mg/mg Normal [facility] Comment on above: Performed By: #### U TOMAS, TSH, CMP, LIPID, T7 #### [facility] [address] [address] [address] Hugh Landis TESTOSTERONE, FREE,DIRECT, T OTALon 08-14-2021 Free Testosterone(Direct) 5.9 pg/mL Critically low 7.2-24.0 [facility] Comment on above: Result Comment: Perf ormed at: BN Performed By: #### B MP #### [facility] [address] [place] [address] Dr. Hugh Landis Testosterone [Mass/Vol] 392 ng/dL Normal 264-916 [facility] Comment on above: Result Comment: Adul t male reference interval is based on a population of healthy nonobese males (BMI <30) between 19 and 39 years old. Gavi, et.al. JCEM 2017,102;8427-3179. PMID: [id number]. Performed at: CB Performed By: #### B MP #### [facility] [address] [place], [place] [id number] Dr. Hugh Landis VITAMIN B1 (THIAMINE)on 07-27 Vit. B1, Whole Blood 145.1 nmol/L Normal 66.5-200.0 [facility] Comment on above: Performed By: #### C MP, LIPID, TSH #### [facility] [id number] Hugh Landis VITAMIN Aon 08-13-2021 Vitamin A 82.7 ug/dL Critically high 20.1-62.0 [facility] Comment on above: Result Comment: [...] By: #### P T #### [facility] [address] [place] [address] Dr. Hugh Landis ZINC SERUM OR PLASMAon 08-10 Zinc, Plasma or Serum 78 ug/dL Normal 44-[address] [facility] Comment on above: Result Comment: Dete ction Limit = 5 Performed By: #### C MP, LIPID, TSH #### [facility] [address] [place] [address] Dr. Hugh Landis FOLATE ([facility])on Folate 12.9 ng/mL Normal >3.[address] [facility] Comment on above: Result Comment: A se rum folate concentration of less than 3.1 ng/mL is considered to represent clinical deficiency. Performed By: #### P TT #### [facility] [address] [place] [address] Dr. Hugh Landis PTH INTACTon 08-09-2021 PTH, Intact 29 pg/mL Normal 15-[address] [facility] Comment on above: Performed By: #### P TT #### [facility] [address] [place] [address] Dr. Hugh Landis CBC AUTO DIFFon 08-08-2021 BASO # 0.0 103/ul Normal 0.0-0.[address] [facility] Comment on above: Performed By: #### C MP, LIPID, TSH #### [facility] [address] [place] [address] Dr. Hugh Landis Basophils/100 WBC (Bld) 0.6 % Normal 0.2-2.0 [facility] Comment on above: Performed By: #### C MP, LIPID, TSH #### [facility] [address] [place] [address] Dr. Hugh Landis EO # 0.2 103/ul Normal 0.0-0.[address] [facility] Comment on above: Performed By: #### C MP, LIPID, TSH #### [facility] [address] [place] [address] Dr. Hugh Landis Eosinophils/100 WBC (Bld) 2.2 % Normal 0.9-7.[address] [facility] Comment on above: Performed By: #### C MP, LIPID, TSH #### [facility] [address] [place] [address] Dr. Hugh Landis Erythrocyte distribution width (RBC) [Ratio] 13.4 % Normal 11.0-15.0 [facility] Comment on above: Performed By: #### C MP, LIPID, TSH #### [facility] [address] [place] [address] Dr. Hugh Landis Hematocrit (Bld) [Volume fraction] 38.2 % Critically low 42.0-54.0 [facility] Comment on above: Performed By: #### C MP, LIPID, TSH #### [facility] [address] [place] [address] Dr. Hugh Landis Hemoglobin (Bld) [Mass/Vol] 11.8 g/dL Critically low 14.0-18.0 [facility] Comment on above: Performed By: #### C MP, LIPID, TSH #### [facility] [address] [place] [address] Dr. Hugh Landis IG # 0.03 10e3/ul Normal 0.00-0.[address] [facility] Comment on above: Performed By: #### C MP, LIPID, TSH #### [facility] [address] [place] [address] Dr. Hugh Landis IG % 0.4 % Normal 0.0-0.[address] [facility] Comment on above: Performed By: #### C MP, LIPID, TSH #### [facility] [address] [place] [address] Dr. Hugh Landis LYMPH # 1.0 103/ul Critically low 1.2-3.8 [facility] Comment on above: Performed By: #### C MP, LIPID, TSH #### [facility] [address] [place] [address] Dr. Hugh Landis Lymphocytes/100 WBC (Bld) 14.9 % Critically low 20.5-60.0 [facility] Comment on above: Performed By: #### C MP, LIPID, TSH #### [facility] [address] [place] [address] Dr. Hugh Landis MANUAL DIFF REQ NO Normal [facility] Comment on above: Performed By: #### C MP, LIPID, TSH #### [facility] [address] [place] [address] Dr. Hugh Landis MCH (RBC) [Entitic mass] 28.5 pg Normal 25.9-34.0 [facility] Comment on above: Performed By: #### C MP, LIPID, TSH #### [facility] [address] [place] [address] Dr. Hugh Landis MCHC (RBC) [Mass/Vol] 30.9 g/dL Normal 29.9-35.2 [facility] Comment on above: Performed By: #### C MP, LIPID, TSH #### [facility] [address] [place] [address] Dr. Hugh Landis MCV (RBC) [Entitic vol] 92.3 fL Normal 80.0-94.0 [facility] Comment on above: Performed By: #### C MP, LIPID, TSH #### [facility] [address] [place] [address] Dr. Hugh Landis MONO # 0.7 103/ul Normal 0.3-0.8 [facility] Comment on above: Performed By: #### C MP, LIPID, TSH #### [facility] [address] [place] [address] Dr. Hugh Landis Monocytes/100 WBC (Bld) 10.6 % Normal 1.7-12.0 [facility] Comment on above: Performed By: #### C MP, LIPID, TSH #### [facility] [address] [place] [address] Dr. Hugh Landis NEUT # 4.9 103/ul Normal 1.4-6.5 [facility] Comment on above: Performed By: #### C MP, LIPID, TSH #### [facility] [address] [place] [address] Dr. Hugh Landis Neutrophils/100 WBC (Bld) 71.3 % Normal 43.0-75.0 [facility] Comment on above: Performed By: #### C MP, LIPID, TSH #### [facility] [address] [place] [address] Dr. Hugh Landis Platelet mean volume (Bld) [Entitic vol] 9.4 fL Critically low 9.5-13.5 [facility] Comment on above: Performed By: #### C MP, LIPID, TSH #### [facility] [address] [place] [address] Dr. Hugh Landis PLT 249 103/ul Normal 150-450 [facility] Comment on above: Performed By: #### C MP, LIPID, TSH #### [facility] [address] [place] [address] Dr. Hugh Landis RBC 4.14 106/ul Critically low 4.70-6.10 [facility] Comment on above: Performed By: #### C MP, LIPID, TSH #### [facility] [address] [place] [address] Dr. Hugh Landis WBC 6.9 103/ul Normal 4.0-11.0 [facility] Comment on above: Performed By: #### C MP, LIPID, TSH #### [facility] [address] [place] [address] Dr. Hugh Landis FERRITINon 08-08-2021 Ferritin [Mass/Vol] 154.0 ng/mL Normal 26.0-388.0 [facility] Comment on above: Performed By: #### C MP, LIPID, TSH #### [facility] [address] [place] [address] Dr. Hugh Landis GLYCOHEMOGLOBIN A1Con 2021 ADA RECOMMENDATION SEE BELOW Normal [facility] Comment on above: Result Comment: ADA RECOMMENDED LIMIT 4.0 - 6.0 ADA THERAPEUTIC TARGET < 7.0 ACTION SUGGESTED > 7.0 Performed By: #### P T #### [facility] [address] [address] [address] Hugh Landis Glucose [Mass/Vol] 140 mg/dL Normal [facility] Comment on above: Performed By: #### P T #### [facility] [address] [address] [address] Hugh Landis HbA1c (Bld) [Mass fraction] 6.5 % Critically high 4.5-6.2 [facility] Comment on above: Performed By: #### P T #### [facility] [address] [address] [address] Hugh Landis IRON AND TIBCon 08-08-2021 % SATURATION 13.6 % Normal [facility] Comment on above: Performed By: #### C MP, LIPID, TSH #### [facility] [address] [address] [address] Hugh Landis Iron [Mass/Vol] 45.0 ug/dL Critically low 65.0-175.0 [facility] Comment on above: Performed By: #### C MP, LIPID, TSH #### [facility] [address] [address] [address] Hugh Landis TIBC DIRECT 332.0 ug/dL Normal 250.0-450.0 [facility] Comment on above: Performed By: #### C MP, LIPID, TSH #### [facility] [address] [address] [address] Hugh Landis LIPID PROFILEon 08-08-2021 CHOL-HDL RATIO NORM SEE BELOW Normal [facility] Comment on above: Result Comment: 3.3 - 4.4 LOW RISK 4.4 - 7.1 AVERAGE RISK 7.1 - 11.0 MODERATE RISK >11.0 HIGH RISK Performed By: #### C MP, LIPID, TSH #### [facility] [address] [address] [address] Hugh Landis Cholesterol [Mass/Vol] 187 mg/dL Normal <=200 [facility] Comment on above: Performed By: #### C MP, LIPID, TSH #### [facility] [address] [address] [address] Hugh Landis Cholesterol in HDL [Mass/Vol] 51 mg/dL Normal 40-60 [facility] Comment on above: Performed By: #### C MP, LIPID, TSH #### [facility] [address] [address] [address] Hugh Landis Cholesterol in LDL [Mass/Vol] 101.8 mg/dL Normal [facility] Comment on above: Performed By: #### C MP, LIPID, TSH #### [facility] [address] [address] [address] Hugh Landis Cholesterol.total/Ch olesterol in HDL [Mass ratio] 3.7 {ratio} Normal [facility] Comment on above: Performed By: #### C MP, LIPID, TSH #### [facility] [address] [address] [address] Hugh Landis HDL NORMAL > or = 60 mg/dl - LO W CARDIOVASCULAR RISK <40 mg/dl - HIGH CARDIOVASCULAR RISK Normal [facility] Comment on above: Performed By: #### C MP, LIPID, TSH #### [facility] [address] [address] [address] Hugh Landis LDL CALC NORMAL SEE BELOW Normal [facility] Comment on above: Result Comment: <100 mg/dl OPTIMAL 100 - 129 mg/dl NEAR OR ABOVE OPTIMAL 130 - 159 mg/dl BORDERLINE HIGH 160 - 189 mg/dl HIGH >190 mg/dl VERY HIGH Performed By: #### C MP, LIPID, TSH #### [facility] [address] [address] [address] Hugh Landis Triglyceride [Mass/Vol] 171 mg/dL Critically high <=[address] [facility] Comment on above: Performed By: #### C MP, LIPID, TSH #### [facility] [address] [address] [address] Hugh Landis VLDL CALC 34.2 mg/dL Normal [facility] Comment on above: Performed By: #### C MP, LIPID, TSH #### [facility] [address] [address] [address] Hugh Landis PROF 14(COMP METB)on 022 Albumin [Mass/Vol] 3.6 g/dL Normal 3.4-5.0 [facility] Comment on above: Performed By: #### C MP, LIPID, TSH #### [facility] [address] [address] [address] Hugh Landis Albumin/Globulin [Mass ratio] 0.8 {ratio} Normal [facility] Comment on above: Performed By: #### C MP, LIPID, TSH #### [facility] [address] [address] [address] Hugh Landis ALP [Catalytic activity/Vol] 64 U/L Normal 46-116 [facility] Comment on above: Performed By: #### C MP, LIPID, TSH #### [facility] [address] [address] [address] Hugh Landis ALT [Catalytic activity/Vol] 28 U/L Normal 16-63 [facility] Comment on above: Performed By: #### C MP, LIPID, TSH #### [facility] [address] [address] [address] Hugh Landis Anion gap [Moles/Vol] 15.0 mmol/L Normal [facility] Comment on above: Performed By: #### C MP, LIPID, TSH #### [facility] [address] [address] [address] Hugh Landis AST [Catalytic activity/Vol] 14 U/L Critically low 15-37 [facility] Comment on above: Performed By: #### C MP, LIPID, TSH #### [facility] [address] [address] [address] Hugh Landis Bilirubin [Mass/Vol] 0.5 mg/dL Normal 0.2-1.[address] [facility] Comment on above: Performed By: #### C MP, LIPID, TSH #### [facility] [address] [address] [address] Hugh Landis Calcium [Mass/Vol] 9.6 mg/dL Normal 8.5-10.1 [facility] Comment on above: Performed By: #### C MP, LIPID, TSH #### [facility] [address] [address] [address] Hugh Landis Chloride [Moles/Vol] 105 mmol/L Normal 98-[address] [facility] Comment on above: Performed By: #### C MP, LIPID, TSH #### [facility] [address] [address] [address] Hugh Landis CO2 [Moles/Vol] 23.5 mmol/L Normal 21.0-32.0 [facility] Comment on above: Performed By: #### C MP, LIPID, TSH #### [facility] [address] [address] [address] Hugh Landis Creatinine [Mass/Vol] 2.69 mg/dL Critically high 0.70-1.[address] [facility] Comment on above: Performed By: #### C MP, LIPID, TSH #### [facility] [address] [address] [address] Hugh Landis EGFR-AF BRUNEIAN 30 mL/min/1.73m2 Critically low >=[address] [facility] Comment on above: Performed By: #### C MP, LIPID, TSH #### [facility] [address] [address] [address] Hugh Landis EGFR-NON AF BRUNEIAN 25 mL/min/1.73m2 Critically low >=60 [facility] Comment on above: Performed By: #### C MP, LIPID, TSH #### [facility] [address] [address] [address] Hugh Landis Globulin (S) [Mass/Vol] 4.3 g/dL Normal [facility] Comment on above: Performed By: #### C MP, LIPID, TSH #### [facility] [address] [address] [address] Hugh Landis Glucose [Mass/Vol] 80 mg/dL Normal 74-106 [facility] Comment on above: Performed By: #### C MP, LIPID, TSH #### [facility] [address] [address] [address] Hugh Landis Potassium [Moles/Vol] 5.5 mmol/L Critically high 3.5-5.1 [facility] Comment on above: Performed By: #### C MP, LIPID, TSH #### [facility] [address] [place] [address] Dr. Hugh Landis Protein [Mass/Vol] 7.9 g/dL Normal 6.4-8.2 [facility] Comment on above: Performed By: #### C MP, LIPID, TSH #### [facility] [address] [place] [address] Dr. Hugh Landis Sodium [Moles/Vol] 138 mmol/L Normal 136-145 [facility] Comment on above: Performed By: #### C MP, LIPID, TSH #### [facility] [address] [place] [address] Dr. Hugh Landis Urea nitrogen [Mass/Vol] 47.0 mg/dL Critically high 7.0-18.0 [facility] Comment on above: Performed By: #### C MP, LIPID, TSH #### [facility] [address] [place] [address] Dr. Hugh Landis Urea nitrogen/Creatinine [Mass ratio] 17.5 mg/mg Normal [facility] Comment on above: Performed By: #### C MP, LIPID, TSH #### [facility] [address] [place] [address] Dr. Hugh Landis TSHon 08-08-2021 TSH 1.069 uIU/mL Normal 0.358-3.740 [facility] Comment on above: Performed By: #### C MP, LIPID, TSH #### [facility] [address] [place] [address] Dr. Hugh Landis TSH RANGE SEE BELOW Normal [facility] Comment on above: Result Comment: <0.3 4 UIU/ml HYPERTHYROID 0.34-5.60 UIU/ml EUTHYROID >5.60 UIU/ml HYPOTHYROID Performed By: #### C MP, LIPID, TSH #### [facility] [address] [place] [address] Dr. Hugh Landis VITAMIN B12on 08-08-2021 Cobalamin (Vitamin B12) [Mass/Vol] 336.0 pg/mL Normal 193.0-986.0 [facility] Comment on above: Performed By: #### C MP, LIPID, TSH #### [facility] [address] [place], [place] [id number] Dr. Hugh Landis VITAMIN D 25 OHon 08-08-2021 VIT D 25-OH 36.6 ng/mL Normal [facility] Comment on above: Performed By: #### C MP, LIPID, TSH #### [facility] [address] [place], [place] [id number] Dr. Hugh Landis VIT D RANGES SEE BELOW Normal [facility] Comment on above: Result Comment: <20 ng/mL Vit D deficient 20 - <30 ng/mL Vit D insufficient 30 - 100 ng/mL Vit D sufficient >100 ng/mL Potential Toxicity Performed By: #### C MP, LIPID, TSH #### [facility] [address] [place] [address] Dr. Hugh Landis KNEE RIGHT 3 Son 2 KNEE RIGHT 3 [facility] Department of Radiology [address] [place] [id number] ======== Patient Name: SUKHDEEP SIMENTAL : [...] disruption. Electronically signed: Cole Richmond. Transcribed by: [email or web address], User Resident: Electronically Signed by: COLE RICHMOND @ 07/23/2021 10:50 PM Normal [facility] Comment on above: Order Comment: Evalu ate CBCon 07-18-2021 Erythrocyte distribution width (RBC) [Ratio] 13.5 % Normal 11.8-14.4 [facility] Comment on above: Performed By: #### C BC, PT, PTT, BMP #### [facility] [address] [place] [id number] Sped Teacher: Good Melendez MD #### ANICOT #### [facility] [address] [place], [place] [id number] Sped Teacher: Troy Link MD Hematocrit (Bld) [Volume fraction] 39.1 % Low 40.7-50.3 [facility] Comment on above: Performed By: #### C BC, PT, PTT, BMP #### [facility] [address] [place] [id number] Sped Teacher: Good Melendez MD #### ANICOT #### [facility] [address] [place], [place] [id number] Sped Teacher: Troy Link MD Hemoglobin (Bld) [Mass/Vol] 12.3 g/dL Low 13.0-17.0 [facility] Comment on above: Performed By: #### C BC, PT, PTT, BMP #### [address] [id number] Sped Teacher: Good Melendez MD #### ANICOT #### [facility] [address] [place], [place] [id number] Sped Teacher: Troy Link MD MCH (RBC) [Entitic mass] 28.8 pg Normal 25.2-33.5 [facility] Comment on above: Performed By: #### C BC, PT, PTT, BMP #### [address] [id number] Sped Teacher: Good Melendez MD #### ANICOT #### [facility] [address] [place], [place] [id number] Sped Teacher: Troy Link MD MCHC (RBC) [Mass/Vol] 31.5 g/dL Normal 28.4-34.8 [facility] Comment on above: Performed By: #### C BC, PT, PTT, BMP #### [address] [id number] Sped Teacher: Good Melendez MD #### ANICOT #### [facility] [address] [place], [place] [id number] Sped Teacher: Troy Link MD MCV (RBC) [Entitic vol] 91.6 fL Normal 82.6-102.9 [facility] Comment on above: Performed By: #### C BC, PT, PTT, BMP #### [address] [id number] Sped Teacher: Good Melendez MD #### ANICOT #### [facility] [address] [place] [address] Sped Teacher: Troy Link MD NRBC Automated 0.0 per [address] [facility] Comment on above: Performed By: #### C BC, PT, PTT, BMP #### [address] [address] Sped Teacher: Good Melendez MD #### ANICOT #### [facility] [address] [place] [address] Sped Teacher: Troy Link MD Platelet mean volume (Bld) [Entitic vol] 9.7 fL Normal 8.1-13.5 [facility] Comment on above: Performed By: #### C BC, PT, PTT, BMP #### [place] [address] Sped Teacher: Good Melendez MD #### ANICOT #### [facility] [address] [place] [address] Sped Teacher: Troy Link MD Platelets (Bld) [#/Vol] 190 10*3/uL Normal 138-453 [facility] Comment on above: Performed By: #### C BC, PT, PTT, BMP #### [address] [id number] Sped Teacher: Good Melendez MD #### ANICOT #### [facility] [address] [place] [address] Sped Teacher: Troy Link MD RBC (Bld) [#/Vol] 4.27 10*6/uL Normal 4.21-5.77 [facility] Comment on above: Performed By: #### C BC, PT, PTT, BMP #### [address] [id number] Sped Teacher: Good Melendez MD #### ANICOT #### [facility] [address] [place], [place] [id number] Sped Teacher: Troy Link MD WBC (Bld) [#/Vol] 8.7 10*3/uL Normal 3.5-11.3 [facility] Comment on above: Performed By: #### C BC, PT, PTT, BMP #### [facility] [address] [place] [id number] Sped Teacher: Good Melendez MD #### ANICOT #### [facility] [address] [place], [place] [id number] Sped Teacher: Troy Link MD APTTon 07-17-2021 aPTT Coag (Bld) [Time] 20.8 s Normal 20.5-30.5 [facility] Comment on above: Result Comment: IV Heparin Therapy Range: 48.6-77.8 Performed By: #### C BC, PT, PTT, BMP #### [address] [address] Sped Teacher: Good Melendez MD #### ANICOT #### [facility] [address] [place], [place] [id number] Sped Teacher: Troy Link MD aPTT Coag (Bld) [Time] 37.9 s High 20.5-30.5 [facility] Comment on above: Result Comment: IV Heparin Therapy Range: 48.6-77.8 Performed By: #### C BC, PT, PTT, BMP #### [address] [address] Sped Teacher: Good Melendez MD #### ANICOT #### [facility] [address] [place], [place] [id number] Sped Teacher: Troy Link MD aPTT Coag (Bld) [Time] 78.1 s High 20.5-30.5 [facility] Comment on above: Result Comment: IV Heparin Therapy Range: 48.6-77.8 Performed By: #### C BC, PT, PTT, BMP #### [address] [id number] Sped Teacher: Good Melendez MD #### ANICOT #### [facility] [address] [place], [place] [id number] Sped Teacher: Troy Link MD Basic Metab w/rfx MGon 07-17 (cont.) Normal [facility] Comment on above: Result Comment: Aver age GFR for 50-59 years old: 93 mL/min/1.73sq m Chronic Kidney Disease: <60 mL/min/1.73sq m Kidney failure: <15 mL/min/1.73sq m eGFR calculated using average adult body mass. Additional eGFR calculator available at: http://www.Appian.Qustodio/multiple_crcl_2011.htm Performed By: #### C BC, PT, PTT, BMP #### [address] [id number] Sped Teacher: Good Melendez MD #### ANAPARNAT #### [facility] [address] [place] [address] Sped Teacher: Troy Link MD Anion gap [Moles/Vol] 9 mmol/L Normal 9-17 [facility] Comment on above: Performed By: #### C BC, PT, PTT, BMP #### [facility] [address] [place] [address] Sped Teacher: Good Melendez MD #### ANICOT #### [facility] [address] [place] [address] Sped Teacher: Troy Link MD Calcium [Mass/Vol] 9.3 mg/dL Normal 8.6-10.4 [facility] Comment on above: Performed By: #### C BC, PT, PTT, BMP #### [address] [address] Sped Teacher: Good Melendez MD #### ANICOT #### [facility] [address] [place] [address] Sped Teacher: Troy Link MD Chloride [Moles/Vol] 106 mmol/L Normal 98-107 [facility] Comment on above: Performed By: #### C BC, PT, PTT, BMP #### [address] [address] Sped Teacher: Good Melendez MD #### ANICOT #### [address] [address] Sped Teacher: Troy Link MD CO2 [Moles/Vol] 23 mmol/L Normal 20-31 [facility] Comment on above: Performed By: #### C BC, PT, PTT, BMP #### [address] [address] Sped Teacher: Good Melendez MD #### ANICOT #### [facility] [address] [place] [address] Sped Teacher: Troy Link MD Creatinine [Mass/Vol] 1.40 mg/dL High 0.70-1.20 [facility] Comment on above: Performed By: #### C BC, PT, PTT, BMP #### [address] [address] Sped Teacher: Good Melendez MD #### ANICOT #### [facility] [address] [place] [address] Sped Teacher: Troy Link MD GFR, Amer >60 Normal >60 [facility] Comment on above: Performed By: #### C BC, PT, PTT, BMP #### [address] [place] [address] Sped Teacher: Good Melendez MD #### ANICOT #### [facility] [address] [place] [address] Sped Teacher: Troy Link MD GFR,non Amer 52 mL/min Low >60 [facility] Comment on above: Performed By: #### C BC, PT, PTT, BMP #### [address] [address] Sped Teacher: Good Melendez MD #### ANICOT #### [facility] [address] [place] [address] Sped Teacher: Troy Link MD Glucose [Mass/Vol] 170 mg/dL High 70-99 [facility] Comment on above: Performed By: #### C BC, PT, PTT, BMP #### [address] [address] Sped Teacher: Good Melendez MD #### ANICOT #### [facility] [address] [place] [address] Sped Teacher: Troy Link MD Potassium [Moles/Vol] 4.6 mmol/L Normal 3.7-5.3 [facility] Comment on above: Performed By: #### C BC, PT, PTT, BMP #### [address] [address] Sped Teacher: Good Melendez MD #### ANICOT #### [facility] [address] [place] [address] Sped Teacher: Troy Link MD Sodium [Moles/Vol] 138 mmol/L Normal 135-144 [facility] Comment on above: Performed By: #### C BC, PT, PTT, BMP #### [facility] [address] [place] [address] Sped Teacher: Good Melendez MD #### ANICOT #### [facility] [address] [place] [address] Sped Teacher: Troy Link MD Urea nitrogen [Mass/Vol] 33 mg/dL High 6-20 [facility] Comment on above: Performed By: #### C BC, PT, PTT, BMP #### [address] [id number] Sped Teacher: Good Melendez MD #### ANICOT #### [facility] [address] [place] [address] Sped Teacher: Troy Link MD Basic Metabolic Profon 07-17 (cont.) Normal [facility] Comment on above: Result Comment: Aver age GFR for 50-59 years old: 93 mL/min/1.73sq m Chronic Kidney Disease: <60 mL/min/1.73sq m Kidney failure: <15 mL/min/1.73sq m eGFR calculated using average adult body mass. Additional eGFR calculator available at: http://www.Appian.com/multiple_crcl_2011.htm Performed By: #### C BC, PT, PTT, BMP #### [address] [id number] Sped Teacher: Good Melendez MD #### ANICOT #### [facility] [address] [place], [place] [id number] Sped Teacher: Troy Link MD Anion gap [Moles/Vol] 8 mmol/L Low 9-17 [facility] Comment on above: Performed By: #### C BC, PT, PTT, BMP #### [address] [address] Sped Teacher: Good Melendez MD #### ANICOT #### [facility] [address] [place], [place] [id number] Sped Teacher: Troy Link MD Calcium [Mass/Vol] 9.5 mg/dL Normal 8.6-10.4 [facility] Comment on above: Performed By: #### C BC, PT, PTT, BMP #### [address] [address] Sped Teacher: Good Melendez MD #### ANICOT #### [facility] [address] [place], [place] [id number] Sped Teacher: Troy Link MD Chloride [Moles/Vol] 104 mmol/L Normal 98-107 [facility] Comment on above: Performed By: #### C BC, PT, PTT, BMP #### [address] [id number] Sped Teacher: Good Melendez MD #### ANICOT #### [facility] [address] [place], [place] [id number] Sped Teacher: Troy Link MD CO2 [Moles/Vol] 23 mmol/L Normal 20-31 [facility] Comment on above: Performed By: #### C BC, PT, PTT, BMP #### [address] [address] Sped Teacher: Good Melendez MD #### ANICOT #### [facility] [address] [place] [address] Sped Teacher: Troy Link MD Creatinine [Mass/Vol] 1.34 mg/dL High 0.70-1.20 [facility] Comment on above: Performed By: #### C BC, PT, PTT, BMP #### [address] [address] Sped Teacher: Good Melendez MD #### ANICOT #### [facility] [address] [place] [address] Sped Teacher: Troy Link MD GFR, Amer >60 Normal >60 [facility] Comment on above: Performed By: #### C BC, PT, PTT, BMP #### [address] [id number] Sped Teacher: Good Melendez MD #### ANICOT #### [facility] [address] [place], [place] [id number] Sped Teacher: Troy Link MD GFR,non Amer 55 mL/min Low >60 [facility] Comment on above: Performed By: #### C BC, PT, PTT, BMP #### [address] [id number] Sped Teacher: Good Melendez MD #### ANICOT #### [facility] [address] [place] [address] Sped Teacher: Troy Link MD Glucose [Mass/Vol] 136 mg/dL High 70-99 [facility] Comment on above: Performed By: #### C BC, PT, PTT, BMP #### [address] [id number] Sped Teacher: Good Melendez MD #### ANICOT #### [facility] [address] [place] [address] Sped Teacher: Troy Link MD Potassium [Moles/Vol] 4.7 mmol/L Normal 3.7-5.3 [facility] Comment on above: Performed By: #### C BC, PT, PTT, BMP #### [address] [address] Sped Teacher: Good Melendez MD #### ANICOT #### [facility] [address] [place], [place] [id number] Sped Teacher: Troy Link MD Sodium [Moles/Vol] 135 mmol/L Normal 135-144 [facility] Comment on above: Performed By: #### C BC, PT, PTT, BMP #### [facility] [address] [place] [address] Sped Teacher: Good Melendez MD #### ANICOT #### [facility] [address] [place] [address] Sped Teacher: Troy Link MD Urea nitrogen [Mass/Vol] 31 mg/dL High 6-20 [facility] Comment on above: Performed By: #### C BC, PT, PTT, BMP #### [address] [address] Sped Teacher: Good Melendez MD #### ANICOT #### [facility] [address] [place], [place] [id number] Sped Teacher: Troy Link MD Fibrinogenon 07-17-2021 Fibrinogen 404 mg/dL Normal 140-420 [facility] Comment on above: Performed By: #### C BC, PT, PTT, BMP #### [address] [address] Sped Teacher: Good Melendez MD #### ANICOT #### [facility] [address] [place], [place] [id number] Sped Teacher: Troy Link MD Fibrinogen 395 mg/dL Normal 140-420 [facility] Comment on above: Performed By: #### C BC, PT, PTT, BMP #### [facility] [address] [place] [address] Sped Teacher: Good Melendez MD #### ANICOT #### [facility] [address] [place] [address] Sped Teacher: Troy Link MD Hemoglobin A1Con 07-17-2021 Glucose [Mass/Vol] 169 mg/dL Normal [facility] Comment on above: Result Comment: The ADA and AACC recommend providing the estimated average glucose result to permit better patient understanding of their HBA1c result. Performed By: #### C BC, PT, PTT, BMP #### [facility] [address] [place] [address] Sped Teacher: Good Melendez MD #### ANICOT #### [facility] [address] [place], [place] [id number] Sped Teacher: Troy Link MD HbA1c (Bld) [Mass fraction] 7.5 % High 4.0-6.0 [facility] Comment on above: Performed By: #### C BC, PT, PTT, BMP #### [facility] [address] [place] [address] Sped Teacher: Good Melendez MD #### ANICOT #### [facility] [address] [place] [address] Sped Teacher: Troy Link MD PTon 07-17-2021 INR Coag (PPP) [Relative time] 1.2 {INR} Normal [facility] Comment on above: Result Comment: Therapeutic Range: Moderate Anticoagulant Intensity: INR = 2.0-3.0 High Anticoagulant Intensity: INR = 2.5-3.5 Performed By: #### C BC, PT, PTT, BMP #### [facility] [address] [place] [address] Sped Teacher: Good Melendez MD #### ANICOT #### [facility] [address] [place], [place] [id number] Sped Teacher: Troy Link MD PT Coag (PPP) [Time] 12.6 s High 9.1-12.3 [facility] Comment on above: Performed By: #### C BC, PT, PTT, BMP #### [facility] [address] [place] [address] Sped Teacher: Good Melendez MD #### ANICOT #### [facility] [address] [place], [place] [id number] Sped Teacher: Troy Link MD Troponinon 07-17-2021 Troponin, High Sens 38 ng/L High 0-22 [facility] Comment on above: Result Comment: High Sensitivity Troponin values cannot be compared with other Troponin methodologies. Patients with high levels of Biotin oral intake (i.e >5mg/day) may have falsely decreased Troponin levels. Samples collected within 8 hours of biotin intake may require additional information for diagnosis. Performed By: #### C BC, PT, PTT, BMP #### [facility] [address] [place] [address] Sped Teacher: Good Melendez MD #### ANICOT #### [facility] [address] [place], [place] [id number] Sped Teacher: Troy Link MD APTTon 07-16-2021 aPTT Coag (Bld) [Time] 51.1 s High 20.5-30.5 [facility] Comment on above: Result Comment: IV Heparin Therapy Range: 48.6-77.8 Performed By: #### C BC, PT, PTT, BMP #### [facility] [address] [place] [address] Sped Teacher: Good Melendez MD #### ANICOT #### [facility] [address] [place], [place] [id number] Sped Teacher: Troy Link MD aPTT Coag (Bld) [Time] 31.1 s High 20.5-30.5 [facility] Comment on above: Result Comment: IV Heparin Therapy Range: 48.6-77.8 Performed By: #### C BC, PT, PTT, BMP #### [facility] [address] [place] [address] Sped Teacher: Good Melendez MD #### ANICOT #### [facility] [address] [place], [place] [id number] Sped Teacher: Troy Link MD Brain Natri. Peptideon 07-16 Natriuretic peptide B (Bld) [Mass/Vol] 1492 pg/mL High <300 [facility] Comment on above: Result Comment: An age-independent cutoff point of 300 pg/ml has a 98% negative predictive value excluding acute heart failure. Performed By: #### C BC, PT, PTT, BMP #### [facility] [address] [place] [address] Sped Teacher: Good Melendez MD #### ANICOT #### [facility] [address] [place], [place] [id number] Sped Teacher: Troy Link MD [facility] Erythrocyte distribution width (RBC) [Ratio] 13.6 % Normal 11.8-14.4 [facility] Comment on above: Performed By: #### C BC, PT, PTT, BMP #### [facility] [address] [place] [address] Sped Teacher: Good Melendez MD #### ANICOT #### [facility] [address] [place] [address] Sped Teacher: Troy Link MD Hematocrit (Bld) [Volume fraction] 40.3 % Low 40.7-50.3 [facility] Comment on above: Performed By: #### C BC, PT, PTT, BMP #### [facility] [address] [place] [address] Sped Teacher: Good Melendez MD #### ANICOT #### [facility] [address] [place] [address] Sped Teacher: Troy Link MD Hemoglobin (Bld) [Mass/Vol] 13.0 g/dL Normal 13.0-17.0 [facility] Comment on above: Performed By: #### C BC, PT, PTT, BMP #### [facility] [address] [place] [id number] Sped Teacher: Good Melendez MD #### ANICOT #### [facility] [address] [place] [address] Sped Teacher: Troy Link MD MCH (RBC) [Entitic mass] 28.7 pg Normal 25.2-33.5 [facility] Comment on above: Performed By: #### C BC, PT, PTT, BMP #### [address] [address] Sped Teacher: Good Melendez MD #### ANICOT #### [facility] [address] [place] [address] Sped Teacher: Troy Link MD MCHC (RBC) [Mass/Vol] 32.3 g/dL Normal 28.4-34.8 [facility] Comment on above: Performed By: #### C BC, PT, PTT, BMP #### [address] [address] Sped Teacher: Good Melendez MD #### ANICOT #### [address] [address] Sped Teacher: Troy Link MD MCV (RBC) [Entitic vol] 89.0 fL Normal 82.6-102.9 [facility] Comment on above: Performed By: #### C BC, PT, PTT, BMP #### [address] [address] Sped Teacher: Good Melendez MD #### ANICOT #### [facility] [address] [place] [address] Sped Teacher: Troy Link MD NRBC Automated 0.0 per [address] [facility] Comment on above: Performed By: #### C BC, PT, PTT, BMP #### [facility] [address] Sped Teacher: Good Melendez MD #### ANICOT #### [facility] [address] [place] [address] Sped Teacher: Troy Link MD Platelet mean volume (Bld) [Entitic vol] 9.6 fL Normal 8.1-13.5 [facility] Comment on above: Performed By: #### C BC, PT, PTT, BMP #### [address] [address] Sped Teacher: Good Melendez MD #### ANICOT #### [facility] [address] [place] [address] Sped Teacher: Troy Link MD Platelets (Bld) [#/Vol] 203 10*3/uL Normal 138-453 [facility] Comment on above: Performed By: #### C BC, PT, PTT, BMP #### [address] [address] Sped Teacher: Good Melendez MD #### ANICOT #### [facility] [address] [place] [address] Sped Teacher: Troy Link MD RBC (Bld) [#/Vol] 4.53 10*6/uL Normal 4.21-5.77 [facility] Comment on above: Performed By: #### C BC, PT, PTT, BMP #### [address] [address] Sped Teacher: Good Melendez MD #### ANICOT #### [facility] [address] [place] [address] Sped Teacher: Troy Link MD WBC (Bld) [#/Vol] 6.8 10*3/uL Normal 3.5-11.3 [facility] Comment on above: Performed By: #### C BC, PT, PTT, BMP #### [facility] [address] [place] [address] Sped Teacher: Good Melendez MD #### YASSINET #### [facility] [address] [place], [place] [id number] Sped Teacher: Troy Link MD Troponinon 07-16-2021 Troponin, High Sens 59 ng/L Critically high 0-22 [facility] Comment on above: Result Comment: High Sensitivity Troponin values cannot be compared with other Troponin methodologies. Patients with high levels of Biotin oral intake (i.e >5mg/day) may have falsely decreased Troponin levels. Samples collected within 8 hours of biotin intake may require additional information for diagnosis. Performed By: #### C BC, PT, PTT, BMP #### [facility] [address] [place] [address] Sped Teacher: Good Melendez MD #### YASSINET #### [facility] [address] [place] [address] Sped Teacher: Troy Link MD EKG 12 LeadOrdered By: Matias Varela on 05-26-2021 Atrial Rate 108 BPM [employer] Phone: P Eminence -96 degrees [employer] Phone: P-R Interval 192 ms [employer] Phone: Q-T Interval 348 ms [employer] Phone: QRS Duration 94 ms [employer] Phone: QTc Calculation (Bazett) 466 ms [employer] Phone: R Eminence -116 degrees [employer] Phone: T Eminence -114 degrees [employer] Phone: Ventricular Rate 108 BPM [employer] Work Phone: [employer] Phone: EKG 12 Leadon 05-26-2021 Arm lead reversal Sinus Tachycardia V Leads placement error Repeat ECG When compared with ECG of 08-MAY-2021 11:42, Significant changes have occurred PN STV Matias Andrade MD - 05/26/2021 Arm lead reversal Sinus Tachycardia V Leads placement error Repeat ECG When compared with ECG of 08-MAY-2021 11:42, Significant changes have occurred [employer] Work Phone: SURGICAL PATHOLOGY REPORTon 05-26-2021 Surgical [...] with no areas of granularity or masses. Cad [employer]man sections 1cs. tm Microscopic Description Sections of gastric wall show lamina propria without evidence of significant inflammation. There is no evidence of intestinal metaplasia or dysplasia. There is no evidence of organisms suspicious for Helicobacter with the routine H&E stain. SURGICAL PATHOLOGY CONSULTATION Patient Name: SUKHDEEP SIMENTAL [facility] Rec: [id number] Path Number: [id number] [facility] ANATOMIC PATHOLOGY [address] [place] [address]. [place], [place] [address] [employer] Basic Metabolic Panelon 03-3 Anion gap [Moles/Vol] 10 mmol/L 9 - 17 mmol/L [facility] Calcium [Mass/Vol] 9.1 mg/dL 8.6 - 10. 4 mg/dL [facility] Chloride [Moles/Vol] 106 mmol/L 98 - 10 7 mmol/L [facility] CO2 [Moles/Vol] 23 mmol/L 20 - 31 mmol/L [facility] Creatinine [Mass/Vol] 1.1 mg/dL 0.70 - 1.20 mg/dL [facility] GFR >60 >60 mL/min [employer] GFR Non- >60 >60 mL/min [employer] GFR/1.73 sq M.predicted MDRD (S/P/Bld) [Vol rate/Area] [facility] Comment on above: Average GFR for 50-5 9 years old: 93 mL/min/1.73sq m Chronic Kidney Disease: <60 mL/min/1.73sq m Kidney failure: <15 mL/min/1.73sq m eGFR calculated using average adult body mass. Additional eGFR calculator available at: http://www.Guidance Software/B[place] acquired by [employer]/Bandsintown_crcl_2012.htm Glucose [Mass/Vol] 127 mg/dL High 70 - 99 mg/dL [facility] [employer] Interpretation and review of laboratory results Abnormal [employer] Potassium [Moles/Vol] 4.8 mmol/L 3.7 - 5.3 mmol/L [facility] Sodium [Moles/Vol] 139 mmol/L 135 - 144 mmol/L [employer] Urea nitrogen (BldV) [Mass/Vol] 24 mg/dL High 6 - 20 mg/dL [facility] [employer] Basic Metabolic Profon 05-25 (cont.) Normal [facility] Comment on above: Result Comment: Aver age GFR for 50-59 years old: 93 mL/min/1.73sq m Chronic Kidney Disease: <60 mL/min/1.73sq m Kidney failure: <15 mL/min/1.73sq m eGFR calculated using average adult body mass. Additional eGFR calculator available at: http://www.Guidance Software/B[place] acquired by [employer]/Bandsintown_crcl_2012.htm Performed By: #### C BC, PT, PTT, BMP #### [facility] [address] [place], [place] [id number] Sped Teacher: Good Melendez MD #### JIMENA #### [facility] [address] [place] [address] Sped Teacher: Troy Link MD Anion gap [Moles/Vol] 10 mmol/L Normal - [facility] Comment on above: Performed By: #### C BC, PT, PTT, BMP #### [facility] [address] [place] [address] Sped Teacher: Good Melendez MD #### ANICOT #### [facility] [address] [place], [place] [id number] Sped Teacher: Troy Link MD Calcium [Mass/Vol] 9.1 mg/dL Normal 8.6-10.4 [facility] Comment on above: Performed By: #### C BC, PT, PTT, BMP #### [address] [address] Sped Teacher: Good Melendez MD #### ANICOT #### [address] [id number] Sped Teacher: Troy Link MD Chloride [Moles/Vol] 106 mmol/L Normal 98-107 [facility] Comment on above: Performed By: #### C BC, PT, PTT, BMP #### [address] [address] Sped Teacher: Good Melendez MD #### ANICOT #### [address] [id number] Sped Teacher: Troy Link MD CO2 [Moles/Vol] 23 mmol/L Normal 20-31 [facility] Comment on above: Performed By: #### C BC, PT, PTT, BMP #### [address] [address] Sped Teacher: Good Melendez MD #### ANICOT #### [facility] [address] [place], [place] [id number] Sped Teacher: Troy Link MD Creatinine [Mass/Vol] 1.10 mg/dL Normal 0.70-1.20 [facility] Comment on above: Performed By: #### C BC, PT, PTT, BMP #### [facility] [address] [place] [address] Sped Teacher: Good Melendez MD #### ANICOT #### [facility] [address] [place], [place] [id number] Sped Teacher: Troy Link MD GFR, Amer >60 Normal >60 [facility] Comment on above: Performed By: #### C BC, PT, PTT, BMP #### [facility] [address] [place] [address] Sped Teacher: Good Melendez MD #### ANICOT #### [facility] [address] [place] [address] Sped Teacher: Troy Link MD GFR,non Amer >60 Normal >60 [facility] Comment on above: Performed By: #### C BC, PT, PTT, BMP #### [address] [address] Sped Teacher: Good Melendez MD #### ANICOT #### [facility] [address] [place] [address] Sped Teacher: Troy Link MD Glucose [Mass/Vol] 127 mg/dL High 70-99 [facility] Comment on above: Performed By: #### C BC, PT, PTT, BMP #### [facility] [address] [place] [address] Sped Teacher: Good Melendez MD #### ANICOT #### [facility] [address] [place] [address] Sped Teacher: Troy Link MD Potassium [Moles/Vol] 4.8 mmol/L Normal 3.7-5.3 [facility] Comment on above: Performed By: #### C BC, PT, PTT, BMP #### [facility] [address] [place] [id number] Sped Teacher: Good Melendez MD #### ANICOT #### [facility] [address] [place] [address] Sped Teacher: Troy Link MD Sodium [Moles/Vol] 139 mmol/L Normal 135-144 [facility] Comment on above: Performed By: #### C BC, PT, PTT, BMP #### [address] [address] Sped Teacher: Good Melendez MD #### ANICOT #### [facility] [address] [place] [address] Sped Teacher: Troy Link MD Urea nitrogen [Mass/Vol] 24 mg/dL High 6-20 [facility] Comment on above: Performed By: #### C BC, PT, PTT, BMP #### [address] [address] Sped Teacher: Good Melendez MD #### ANICOT #### [facility] [address] [place] [address] Sped Teacher: Troy Link MD [facility] Erythrocyte distribution width (RBC) [Ratio] 13.9 % Normal 11.8-14.4 [facility] Comment on above: Performed By: #### C BC, PT, PTT, BMP #### [facility] [address] [place] [address] Sped Teacher: Good Melendez MD #### ANICOT #### [facility] [address] [place] [address] Sped Teacher: Troy Link MD Hematocrit (Bld) [Volume fraction] 39.5 % Low 40.7-50.3 [facility] Comment on above: Performed By: #### C BC, PT, PTT, BMP #### [address] [address] Sped Teacher: Good Melendez MD #### ANICOT #### [facility] [address] [place] [address] Sped Teacher: Troy Link MD Hemoglobin (Bld) [Mass/Vol] 12.2 g/dL Low 13.0-17.0 [facility] Comment on above: Performed By: #### C BC, PT, PTT, BMP #### [address] [address] Sped Teacher: Good Melendez MD #### ANICOT #### [facility] [address] [place] [address] Sped Teacher: Troy Link MD MCH (RBC) [Entitic mass] 30.2 pg Normal 25.2-33.5 [facility] Comment on above: Performed By: #### C BC, PT, PTT, BMP #### [address] [address] Sped Teacher: Good Melendez MD #### ANICOT #### [facility] [address] [place] [address] Sped Teacher: Troy Link MD MCHC (RBC) [Mass/Vol] 30.9 g/dL Normal 28.4-34.8 [facility] Comment on above: Performed By: #### C BC, PT, PTT, BMP #### [address] [address] Sped Teacher: Good Melendez MD #### ANICOT #### [facility] [address] [place] [address] Sped Teacher: Troy Link MD MCV (RBC) [Entitic vol] 97.8 fL Normal 82.6-102.9 [facility] Comment on above: Performed By: #### C BC, PT, PTT, BMP #### [address] [address] Sped Teacher: Good Melendez MD #### ANICOT #### [facility] [address] [place] [address] Sped Teacher: Troy Link MD NRBC Automated 0.0 per [address] [facility] Comment on above: Performed By: #### C BC, PT, PTT, BMP #### [address] [address] Sped Teacher: Good Melendez MD #### ANICOT #### [facility] [address] [place], [place] [id number] Sped Teacher: Troy Link MD Platelet mean volume (Bld) [Entitic vol] 8.8 fL Normal 8.1-13.5 [facility] Comment on above: Performed By: #### C BC, PT, PTT, BMP #### [address] [address] Sped Teacher: Good Melendez MD #### ANICOT #### [facility] [address] [place] [address] Sped Teacher: Troy Link MD Platelets (Bld) [#/Vol] 263 10*3/uL Normal 138-453 [facility] Comment on above: Performed By: #### C BC, PT, PTT, BMP #### [address] [address] Sped Teacher: Good Melendez MD #### ANICOT #### [facility] [address] [place], [place] [id number] Sped Teacher: Troy Link MD RBC (Bld) [#/Vol] 4.04 10*6/uL Low 4.21-5.77 [facility] Comment on above: Performed By: #### C BC, PT, PTT, BMP #### [facility] [address] [place], [place] [id number] Sped Teacher: Good Melendez MD #### ANAPARNAT #### [facility] [address] [place], [place] [id number] Sped Teacher: Troy Link MD WBC (Bld) [#/Vol] 10.8 10*3/uL Normal 3.5-11.3 [facility] Comment on above: Performed By: #### C BC, PT, PTT, BMP #### [facility] [address] [place] [address] Sped Teacher: Good Melendez MD #### ANICOT #### [facility] [address] [place] [address] Sped Teacher: Troy Link MD Hematocrit (Bld) [Volume fraction] 39.5 % Low 40.7 - 50.3 % [facility] Hemoglobin.gastroint estinal spec 1 Ql (Stl) 12.2 g/dL Low 13.0 - 17.0 g/dL [facility] Interpretation and review of laboratory results Abnormal [facility] MCH (RBC) [Entitic mass] 30.2 pg 25.2 - 33.5 pg [facility] MCHC (RBC) [Mass/Vol] 30.9 g/dL 28.4 - 34.8 g/dL [facility] MCV (RBC) [Entitic vol] 97.8 fL 82.6 - 102.9 fL [facility] NRBC Automated 0.0 0.0 per 100 WBC [facility] Platelet distribution width (Bld) [Ratio] 13.9 % 11.8 - 14.4 % [facility] Platelet mean volume (Bld) [Entitic vol] 8.8 fL 8.1 - 13.5 fL [facility] Platelets (Bld) [#/Vol] 263 10*3/uL [facility] RBC (Bld) [#/Vol] 4.04 10*6/uL Low 4.21 - 5.7 7 m/uL [facility] WBC (Bld) [#/Vol] 10.8 10*3/uL [facility] Magnesiumon 05-25-2021 Magnesium [Mass/Vol] 1.9 mg/dL Normal 1.6-2.6 [facility] Comment on above: Performed By: #### C BC, PT, PTT, BMP #### [facility] [place], [place] [address] Sped Teacher: Good Melendez MD #### ANICOT #### [facility] [address] [place] [address] Sped Teacher: Troy Link MD Magnesium [Mass/Vol] 1.9 mg/dL 1.6 - 2 .6 mg/dL [facility] Surgical Pathologyon 022 Surgical Pathology (NOTE) -- [...] with no areas of granularity or masses. Cad [employer]sman sections 1cs. tm Microscopic Description Sections of gastric wall show lamina propria without evidence of significant inflammation. There is no evidence of intestinal metaplasia or dysplasia. There is no evidence of organisms suspicious for Helicobacter with the routine CANDY stain. SURGICAL PATHOLOGY CONSULTATION Patient Name: SUKHDEEP SIMENTAL [facility] Rec: [id number] Path Number: [id number] [facility] ANATOMIC PATHOLOGY [address] [place] [phone] [facility] Comment on above: Performed By: #### C BC, PT, PTT, BMP #### [facility] [place], [place] [id number] Sped Teacher: Good Melendez MD #### ANICOT #### [facility] [address] [place] [address] Sped Teacher: Troy Link MD Basic Metabolic Panelon 04-27 Anion gap [Moles/Vol] 13 mmol/L 9 - 17 mmol/L [facility] Calcium [Mass/Vol] 9.1 mg/dL 8.6 - 10. 4 mg/dL [facility] Chloride [Moles/Vol] 102 mmol/L 98 - 10 7 mmol/L [facility] CO2 [Moles/Vol] 17 mmol/L Low 20 - 31 mmol/L [facility] Creatinine [Mass/Vol] 1.16 mg/dL 0.70 - 1.20 mg/dL [facility] GFR >60 >60 mL/min [employer] GFR Non- >60 >60 mL/min [facility] GFR/1.73 sq M.predicted MDRD (S/P/Bld) [Vol rate/Area] [facility] Comment on above: Average GFR for 50-5 9 years old: 93 mL/min/1.73sq m Chronic Kidney Disease: <60 mL/min/1.73sq m Kidney failure: <15 mL/min/1.73sq m eGFR calculated using average adult body mass. Additional eGFR calculator available at: http://www.Guidance Software/multiple_crcl_2012.htm Glucose [Mass/Vol] 203 mg/dL High 70 - 99 mg/dL [facility] Interpretation and review of laboratory results Abnormal [facility] Potassium [Moles/Vol] 4.2 mmol/L 3.7 - 5.3 mmol/L [facility] Sodium [Moles/Vol] 132 mmol/L Low 135 - 144 mmol/L [facility] Urea nitrogen (BldV) [Mass/Vol] 29 mg/dL High 6 - 20 mg/dL [facility] Basic Metabolic Profon 05-24 (cont.) Normal [facility] Comment on above: Result Comment: Aver age GFR for 50-59 years old: 93 mL/min/1.73sq m Chronic Kidney Disease: <60 mL/min/1.73sq m Kidney failure: <15 mL/min/1.73sq m eGFR calculated using average adult body mass. Additional eGFR calculator available at: http://www.Appian.Qustodio/multiple_crcl_2012.htm Performed By: #### C BC, BMP #### [address] [address] Sped Teacher: Good Melendez MD Anion gap [Moles/Vol] 13 mmol/L Normal 9-17 [facility] Comment on above: Performed By: #### C BC, BMP #### [address] [address] Sped Teacher: Good Melendez MD Calcium [Mass/Vol] 9.1 mg/dL Normal 8.6-10.4 [facility] Comment on above: Performed By: #### C JASE, BMP #### [address] [address] Sped Teacher: Good Melendez MD Chloride [Moles/Vol] 102 mmol/L Normal 98-107 [facility] Comment on above: Performed By: #### C BC, BMP #### [address] [address] Sped Teacher: Godo Melendez MD CO2 [Moles/Vol] 17 mmol/L Low 20-31 [facility] Comment on above: Performed By: #### C BC, BMP #### [address] [address] Sped Teacher: Good Melendez MD Creatinine [Mass/Vol] 1.16 mg/dL Normal 0.70-1.20 [facility] Comment on above: Performed By: #### C BC, BMP #### [address] [address] Sped Teacher: Good Melendez MD GFR, Amer >60 Normal >60 [facility] Comment on above: Performed By: #### C BC, BMP #### [facility] [address] [place] [address] Sped Teacher: Good Melendez MD GFR,non Amer >60 Normal >60 [facility] Comment on above: Performed By: #### C BC, BMP #### [facility] [address] [place] [address] Sped Teacher: Good Melendez MD Glucose [Mass/Vol] 203 mg/dL High 70-99 [facility] Comment on above: Performed By: #### C BC, BMP #### [facility] [address] [place] [address] Sped Teacher: Good Melendez MD Potassium [Moles/Vol] 4.2 mmol/L Normal 3.7-5.3 [facility] Comment on above: Performed By: #### C BC, BMP #### [facility] [address] [place] [address] Sped Teacher: Good Melendez MD Sodium [Moles/Vol] 132 mmol/L Low 135-144 [facility] Comment on above: Performed By: #### C BC, BMP #### [facility] [address] [place] [address] Sped Teacher: Good Melendez MD Urea nitrogen [Mass/Vol] 29 mg/dL High 6-20 [facility] Comment on above: Performed By: #### C BC, BMP #### [facility] [address] [place] [address] Sped Teacher: Good Melendez MD CBCon 05-24-2021 Erythrocyte distribution width (RBC) [Ratio] 14.0 % Normal 11.8-14.4 [facility] Comment on above: Performed By: #### C BC, BMP #### [facility] [address] [place] [address] Sped Teacher: Good Melendez MD Hematocrit (Bld) [Volume fraction] 41.0 % Normal 40.7-50.3 [facility] Comment on above: Performed By: #### C BC, BMP #### [address] [address] Sped Teacher: Good Melendez MD Hemoglobin (Bld) [Mass/Vol] 12.7 g/dL Low 13.0-17.0 [facility] Comment on above: Performed By: #### C BC, BMP #### [facility] [address] [place] [address] Sped Teacher: Good Melendez MD MCH (RBC) [Entitic mass] 29.5 pg Normal 25.2-33.5 [facility] Comment on above: Performed By: #### C JASE, BMP #### [address] [address] Sped Teacher: Good Melendez MD MCHC (RBC) [Mass/Vol] 31.0 g/dL Normal 28.4-34.8 [facility] Comment on above: Performed By: #### C JASE, BMP #### [address] [address] Sped Teacher: Good Melendez MD MCV (RBC) [Entitic vol] 95.3 fL Normal 82.6-102.9 [facility] Comment on above: Performed By: #### C BC, BMP #### [facility] [address] [place] [address] Sped Teacher: Good Melendez MD NRBC Automated 0.0 per [address] [facility] Comment on above: Performed By: #### C BC, BMP #### [facility] [address] [place] [phone] Sped Teacher: Good Melendez MD Platelet mean volume (Bld) [Entitic vol] 8.8 fL Normal 8.1-13.5 [facility] Comment on above: Performed By: #### C BC, BMP #### [facility] [address] [place] [address] Sped Teacher: Good Melendez MD Platelets (Bld) [#/Vol] 273 10*3/uL Normal 138-453 [facility] Comment on above: Performed By: #### C BC, BMP #### [facility] [address] [place] [address] Sped Teacher: Good Melendez MD RBC (Bld) [#/Vol] 4.30 10*6/uL Normal 4.21-5.77 [facility] Comment on above: Performed By: #### C JASE, BMP #### [facility] [address] [place] [address] Sped Teacher: Good Melendez MD WBC (Bld) [#/Vol] 9.6 10*3/uL Normal 3.5-11.3 [facility] Comment on above: Performed By: #### C BC, BMP #### [facility] [address] [place] [address] Sped Teacher: Good Melendez MD CBC without Diffon Hematocrit (Bld) [Volume fraction] 41.0 % 40.7 - 50.3 % [facility] Hemoglobin.gastroint estinal spec 1 Ql (Stl) 12.7 g/dL Low 13.0 - 17.0 g/dL [facility] Interpretation and review of laboratory results Abnormal [facility] MCH (RBC) [Entitic mass] 29.5 pg 25.2 - 33.5 pg [facility] MCHC (RBC) [Mass/Vol] 31.0 g/dL 28.4 - 34.8 g/dL [facility] MCV (RBC) [Entitic vol] 95.3 fL 82.6 - 102.9 fL [facility] NRBC Automated 0.0 0.0 per 100 WBC [facility] Platelet distribution width (Bld) [Ratio] 14.0 % 11.8 - 14.4 % [facility] Platelet mean volume (Bld) [Entitic vol] 8.8 fL 8.1 - 13.5 fL [facility] Platelets (Bld) [#/Vol] 273 10*3/uL [facility] RBC (Bld) [#/Vol] 4.30 10*6/uL 4.21 - 5.7 7 m/uL [facility] WBC (Bld) [#/Vol] 9.6 10*3/uL [facility] COVID-19, Rapidon 05-24-2021 SARS-CoV-2 (COVID-19) RNA MUKLU+probe Ql (Unsp spec) Not detected Not Detected [facility] Comment on above: Rapid NAAT: The specimen [...] management decisions. Fact sheet for Healthcare Providers: https://www.fda.gov/media/907074/download Fact sheet for Patients: https://www.fda.gov/media/600863/download Methodology: Isothermal Nucleic Acid Amplification Specimen Description .NASOPHARYNGEAL SWAB [facility] Calcium, Ionicon 05-24-2021 Calcium [Moles/Vol] 1.31 mmol/L Normal 1.13-1.33 [facility] Comment on above: Performed By: #### I OCSETH MG, BRITTANIE #### [facility] [place] [address] Sped Teacher: Good Melendez MD Calcium, Ionizedon Calcium [Moles/Vol] 1.31 mmol/L 1.13 - 1 .33 mmol/L [facility] Magnesiumon 05-24-2021 Magnesium [Mass/Vol] 2.0 mg/dL Normal 1.6-2.6 [facility] Comment on above: Performed By: #### C BC, PT, PTT, BMP #### [facility] [address] [place], [place] [id number] Sped Teacher: Good Melendez MD #### ANICOT #### [facility] [address] [place] [address] Sped Teacher: Troy Link MD Magnesium [Mass/Vol] 2.0 mg/dL 1.6 - 2 .6 mg/dL [facility] No Panel Informationon 05-24 [facility] POC Glucose Fingerstickon Glucose [Mass/Vol] 199 mg/dL High 75 - 110 mg/dL [facility] Interpretation and review of laboratory results Abnormal [facility] Glucose [Mass/Vol] 209 mg/dL High 75 - 110 mg/dL [facility] Interpretation and review of laboratory results Abnormal [facility] POCT Glucoseon 05-24-2021 Glucose [Mass/Vol] 150 mg/dL High 74 - 100 mg/dL [facility] Interpretation and review of laboratory results Abnormal [facility] POTASSIUM (POC)on 05-24-2021 Potassium [Moles/Vol] 3.9 mmol/L 3.5 - 4.5 mmol/L [facility] Phosphoruson 05-24-2021 Phosphate [Mass/Vol] 3.8 mg/dL 2.5 - 4 .5 mg/dL [facility] Phosphorus, Inorg.on 022 Phosphorus, Inorg. 3.8 mg/dL Normal 2.5-4.5 [facility] Comment on above: Performed By: #### C BC, PT, PTT, BMP #### [facility] [address] [place], [place] [id number] Sped Teacher: Good Melendez MD #### ANICOT #### [facility] [address] [place] [address] Sped Teacher: Troy Link MD [id number] 05-24-2021 SARS-CoV-2 (COVID-19) RNA MUKUL+probe Ql (Unsp spec) Not detected Normal NOTDET [facility] Comment on above: Result Comment: Rapid [...] management decisions. Fact sheet for Healthcare Providers: https://www.fda.gov/media/132144/download Fact sheet for Patients: https://www.fda.gov/media/373618/download Methodology: Isothermal Nucleic Acid Amplification Performed By: #### C OVRB #### [facility] [address] [place] [address] Sped Teacher: Good Melendez MD Nicotineon 05-11-2021 [id number] <[address] [facility] Comment on above: Performed By: #### C BC, PT, PTT, BMP #### [facility] [address] [place] [address] Sped Teacher: Good Melendez MD #### ANICOT #### [facility] [address] [place] [address] Sped Teacher: Troy Link MD Cotinine <[address] [facility] Comment on above: Performed By: #### C BC, PT, PTT, BMP #### [facility] [address] [place] [address] Sped Teacher: Good Melendez MD #### ANICOT #### [facility] [address] [place] [address] Sped Teacher: Troy Link MD Nicotine <[address] [facility] Comment on above: Result Comment: (NOT [...] developed and its performance characteristics determined by [facility]. It has not been cleared or approved by the [place] Food and Drug Administration. This test was performed in a CLIA certified laboratory and is intended for clinical purposes. Performed By: [facility] [address] [place] [id number] Community Life Director: Ayse Diaz MD Performed By: #### C BC, PT, PTT, BMP #### [facility] [place] [address] Sped Teacher: Good Melendez MD #### ANICOT #### [facility] [address] [place] [address] Sped Teacher: Troy Link MD Nicotine, Bloodon 05-11-2021 [id number] <2 ng/mL [facility] h Cotinine <2 ng/mL [facility] Nicotine <2 ng/mL [facility] Comment on above: (NOTE) Consistent with abstinence [...] developed and its performance characteristics determined by [facility]. It has not been cleared or approved by the [place] Food and Drug Administration. This test was performed in a CLIA certified laboratory and is intended for clinical purposes. Performed By: [facility] [address] [place] [address] Community Life Director: Ayse Diaz MD [facility] EKG 12 LeadOrdered By: Unkno wn Result on 05-09-2021 Atrial Rate 122 BPM [facility] P Eminence 55 degrees [facility] P-R Interval 164 ms [facility] Q-T Interval 298 ms [facility] QRS Duration 84 ms [facility] QTc Calculation (Bazett) 424 ms [facility] R Eminence -11 degrees [facility] T Eminence 42 degrees [facility] Ventricular Rate [address] [facility] alth [facility] EKG 12 Leadon 05-09-2021 Sinus tachycardia Otherwise normal ECG No previous ECGs available [facility] STV MUSE Result, Unknown Provider - 05/09/2021 Sinus tachycardia Otherwise normal ECG No previous ECGs available [facility] Work Phone: XR CHEST (2 VW)on 05-09-2021 [...] Singh Calero MD 05/09/[address] [facility] No acute airspace disease identified. [facility] EXAMINATION: TWO XRAY VIEWS OF [...] effusion. No acute osseous abnormality is identified. [facility] Singh Calero MD - 05/09/2021 [...] identified. IMPRESSION: No acute airspace disease identified. [facility] Work Phone: XR CHEST (2 VW)Ordered By: Carlos Calero on 05-09-2021 [facility] Work Phone: APTTon 05-08-2021 aPTT Coag (Bld) [Time] 23.1 s Normal 20.5-30.5 [facility] Comment on above: Result Comment: IV Heparin Therapy Range: 48.6-77.8 Performed By: #### C BC, PT, PTT, BMP #### [facility] [address] [place], [place] [id number] Sped Teacher: Good Melendez MD #### ANICOT #### [facility] [address] [place] [address] Sped Teacher: Troy Link MD aPTT Coag (Bld) [Time] 23.1 s [facility] Comment on above: IV Heparin Therapy Range: 48.6-77.8 Basic Metabolic Panelon 03- Anion gap [Moles/Vol] 15 mmol/L 9 - 17 mmol/L [facility] Calcium [Mass/Vol] 9.4 mg/dL 8.6 - 10. 4 mg/dL [facility] Chloride [Moles/Vol] 103 mmol/L 98 - 10 7 mmol/L [facility] CO2 [Moles/Vol] 19 mmol/L Low 20 - 31 mmol/L [facility] Creatinine [Mass/Vol] 1.59 mg/dL High 0.70 - 1.20 mg/dL [facility] GFR 55 mL/min Low >60 [facility] GFR Non- 45 mL/min Low >60 [facility] GFR/1.73 sq M.predicted MDRD (S/P/Bld) [Vol rate/Area] [facility] Comment on above: Average GFR for 50-5 9 years old: 93 mL/min/1.73sq m Chronic Kidney Disease: <60 mL/min/1.73sq m Kidney failure: <15 mL/min/1.73sq m eGFR calculated using average adult body mass. Additional eGFR calculator available at: http://www.Guidance Software/B[place] [employer] by [employer]/Bandsintown_crcl_2012.htm Glucose [Mass/Vol] 141 mg/dL High 70 - 99 mg/dL [facility] Interpretation and review of laboratory results Abnormal [facility] Potassium [Moles/Vol] 5.3 mmol/L 3.7 - 5.3 mmol/L [facility] Sodium [Moles/Vol] 137 mmol/L 135 - 144 mmol/L [facility] Urea nitrogen (BldV) [Mass/Vol] 37 mg/dL High 6 - 20 mg/dL [facility] Basic Metabolic Profon 05-08 (cont.) Normal [facility] Comment on above: Result Comment: Aver age GFR for 50-59 years old: 93 mL/min/1.73sq m Chronic Kidney Disease: <60 mL/min/1.73sq m Kidney failure: <15 mL/min/1.73sq m eGFR calculated using average adult body mass. Additional eGFR calculator available at: http://www.Guidance Software/multiple_crcl_2012.htm Performed By: #### C BC, PT, PTT, BMP #### [facility] [place] [address] Sped Teacher: Good Melendez MD #### ANICOT #### [facility] [address] [place], [place] [id number] Sped Teacher: Troy Link MD Anion gap [Moles/Vol] 15 mmol/L Normal 9-17 [facility] Comment on above: Performed By: #### C BC, PT, PTT, BMP #### [address] [address] Sped Teacher: Good Melendez MD #### ANICOT #### [facility] [address] [place], [place] [id number] Sped Teacher: Troy Link MD Calcium [Mass/Vol] 9.4 mg/dL Normal 8.6-10.4 [facility] Comment on above: Performed By: #### C BC, PT, PTT, BMP #### [address] [address] Sped Teacher: Good Melendez MD #### ANICOT #### [facility] [address] [place] [address] Sped Teacher: Troy Link MD Chloride [Moles/Vol] 103 mmol/L Normal 98-107 [facility] Comment on above: Performed By: #### C BC, PT, PTT, BMP #### [address] [address] Sped Teacher: Good Melendez MD #### ANICOT #### [facility] [address] [place] [address] Sped Teacher: Troy Link MD CO2 [Moles/Vol] 19 mmol/L Low 20-31 [facility] Comment on above: Performed By: #### C BC, PT, PTT, BMP #### [facility] [place] [address] Sped Teacher: Good Melendez MD #### ANICOT #### [facility] [address] [place], [place] [id number] Sped Teacher: Troy Link MD Creatinine [Mass/Vol] 1.59 mg/dL High 0.70-1.20 [facility] Comment on above: Performed By: #### C BC, PT, PTT, BMP #### [facility] [address] [place] [address] Sped Teacher: Good Melendez MD #### ANICOT #### [facility] [address] [place] [address] Sped Teacher: Troy Link MD GFR, Amer 55 mL/min Low >60 [facility] Comment on above: Performed By: #### C BC, PT, PTT, BMP #### [facility] [address] [place] [address] Sped Teacher: Good Melendez MD #### ANICOT #### [facility] [address] [place], [place] [id number] Sped Teacher: Troy Link MD GFR,non Amer 45 mL/min Low >60 [facility] Comment on above: Performed By: #### C BC, PT, PTT, BMP #### [facility] [address] [place] [address] Sped Teacher: Good Melendez MD #### ANICOT #### [facility] [address] [place] [address] Sped Teacher: Troy Link MD Glucose [Mass/Vol] 141 mg/dL High 70-99 [facility] Comment on above: Performed By: #### C BC, PT, PTT, BMP #### [facility] [address] [place], [place] [address], [place] [address] Sped Teacher: Good Melendez MD #### ANICOT #### [facility] [address] [place] [address] Sped Teacher: Troy Link MD Potassium [Moles/Vol] 5.3 mmol/L Normal 3.7-5.3 [facility] Comment on above: Performed By: #### C BC, PT, PTT, BMP #### [address] [id number] Sped Teacher: Good Melendez MD #### ANICOT #### [address] [address] Sped Teacher: Troy Link MD Sodium [Moles/Vol] 137 mmol/L Normal 135-144 [facility] Comment on above: Performed By: #### C BC, PT, PTT, BMP #### [address] [address] Sped Teacher: Good Melnedez MD #### ANICOT #### [address] [address] Sped Teacher: Troy Link MD Urea nitrogen [Mass/Vol] 37 mg/dL High 6-20 [facility] Comment on above: Performed By: #### C BC, PT, PTT, BMP #### [address] [address] Sped Teacher: Good Melendez MD #### ANICOT #### [facility] [address] [place] [address] Sped Teacher: Troy Link MD CBCon 05-08-2021 Erythrocyte distribution width (RBC) [Ratio] 14.1 % Normal 11.8-14.4 [facility] Comment on above: Performed By: #### C BC, PT, PTT, BMP #### [address] [place] [address] Sped Teacher: Good Melendez MD #### ANICOT #### [facility] [address] [place] [address] Sped Teacher: Troy Link MD Hematocrit (Bld) [Volume fraction] 43.6 % Normal 40.7-50.3 [facility] Comment on above: Performed By: #### C BC, PT, PTT, BMP #### [facility] [address] [place] [address] Sped Teacher: Good Melendez MD #### ANICOT #### [facility] [address] [place] [address] Sped Teacher: Troy Link MD Hemoglobin (Bld) [Mass/Vol] 13.5 g/dL Normal 13.0-17.0 [facility] Comment on above: Performed By: #### C BC, PT, PTT, BMP #### [address] [address] Sped Teacher: Good Melendez MD #### ANICOT #### [facility] [address] [place] [address] Sped Teacher: Troy Link MD MCH (RBC) [Entitic mass] 29.4 pg Normal 25.2-33.5 [facility] Comment on above: Performed By: #### C BC, PT, PTT, BMP #### [address] [address] Sped Teacher: Good Melendez MD #### ANICOT #### [facility] [address] [place] [address] Sped Teacher: Troy Link MD MCHC (RBC) [Mass/Vol] 31.0 g/dL Normal 28.4-34.8 [facility] Comment on above: Performed By: #### C BC, PT, PTT, BMP #### [facility] [place] [address] Sped Teacher: Good Melendez MD #### ANICOT #### [facility] [address] [place], [place] [id number] Sped Teacher: Troy Link MD MCV (RBC) [Entitic vol] 95.0 fL Normal 82.6-102.9 [facility] Comment on above: Performed By: #### C BC, PT, PTT, BMP #### [address] [id number] Sped Teacher: Good Melendez MD #### ANICOT #### [facility] [address] [place] [address] Sped Teacher: Troy Link MD NRBC Automated 0.0 per [address] [facility] Comment on above: Performed By: #### C BC, PT, PTT, BMP #### [address] [address] Sped Teacher: Good Melendez MD #### ANICOT #### [facility] [address] [place] [address] Sped Teacher: Troy Link MD Platelet mean volume (Bld) [Entitic vol] 8.7 fL Normal 8.1-13.5 [facility] Comment on above: Performed By: #### C BC, PT, PTT, BMP #### [address] [address] Sped Teacher: Good Melendez MD #### ANICOT #### [facility] [address] [place] [address] Sped Teacher: Troy Link MD Platelets (Bld) [#/Vol] 279 10*3/uL Normal 138-453 [facility] Comment on above: Performed By: #### C BC, PT, PTT, BMP #### [facility] [place], [place] [id number] Sped Teacher: Good Melendez MD #### ANICOT #### [facility] [address] [place], [place] [id number] Sped Teacher: Troy Link MD RBC (Bld) [#/Vol] 4.59 10*6/uL Normal 4.21-5.77 [facility] Comment on above: Performed By: #### C BC, PT, PTT, BMP #### [facility] [address] [place] [id number] Sped Teacher: Good Melendez MD #### ANICOT #### [facility] [address] [place], [place] [id number] Sped Teacher: Troy Link MD WBC (Bld) [#/Vol] 8.9 10*3/uL Normal 3.5-11.3 [facility] Comment on above: Performed By: #### C BC, PT, PTT, BMP #### [facility] [address] [place] [address] [phone] Sped Teacher: Good Melendez MD #### ANICOT #### [facility] [address] [place], [place] [id number] Sped Teacher: Troy Link MD Hematocrit (Bld) [Volume fraction] 43.6 % 40.7 - 50.3 % [facility] Hemoglobin.gastroint estinal spec 1 Ql (Stl) 13.5 g/dL 13.0 - 17.0 g/dL [facility] MCH (RBC) [Entitic mass] 29.4 pg 25.2 - 33.5 pg [facility] MCHC (RBC) [Mass/Vol] 31.0 g/dL 28.4 - 34.8 g/dL [facility] MCV (RBC) [Entitic vol] 95.0 fL 82.6 - 102.9 fL [facility] NRBC Automated 0.0 0.0 per 100 WBC [facility] Platelet distribution width (Bld) [Ratio] 14.1 % 11.8 - 14.4 % [facility] Platelet mean volume (Bld) [Entitic vol] 8.7 fL 8.1 - 13.5 fL [facility] Platelets (Bld) [#/Vol] 279 10*3/uL [facility] RBC (Bld) [#/Vol] 4.59 10*6/uL 4.21 - 5.7 7 m/uL [facility] WBC (Bld) [#/Vol] 8.9 10*3/uL [facility] No Panel Informationon 05-08 [facility] PTon 05-08-2021 INR Coag (PPP) [Relative time] 1.1 {INR} Normal [facility] Comment on above: Result Comment: Therapeutic Range: Moderate Anticoagulant Intensity: INR = 2.0-3.0 High Anticoagulant Intensity: INR = 2.5-3.5 Performed By: #### C BC, PT, PTT, BMP #### [facility] [address] [place] [address] Sped Teacher: Good Melendez MD #### ANICOT #### [facility] [address] [place] [address] Sped Teacher: Troy Link MD PT Coag (PPP) [Time] 11.2 s Normal 9.1-12.3 [facility] Comment on above: Performed By: #### C BC, PT, PTT, BMP #### [facility] [address] [place] [address] Sped Teacher: Good Melendez MD #### ANICOT #### [facility] [address] [place] [address] Sped Teacher: Troy Link MD Protime-INRon 05-08-2021 INR Coag (Bld) [Relative time] 1.1 {INR} [facility] Comment on above: Therapeutic Range: Moderate Anticoagulant Intensity: INR = 2.0-3.0 High Anticoagulant Intensity: INR = 2.5-3.5 PT Coag (PPP) [Time] 11.2 s [employer] XR CHEST (2 VW)on 05-08-2021 Radiology Study observation (narrative) [employer] Work Phone: CT LUMBAR SPINE W CONTRASTon 02-28-2021 CT LUMBAR SPINE W CONTRAST [facility] Department of Radiology [address] [place] [address] ======== Patient Name: SUKHDEEP SIMENTAL : 1965 Sex: M Age: Race: White Pt. Location: Patient Status: D Ordered Date: 02/13/2021 9:35:00 AM Completed Date: 02/28/2021 02:00 PM Requesting Provider: JASON MILLER Attending Provider: JASON MILLER Report Copy To: Signs & Symptoms: Z98.1 Arthrodesis status I10 History: [place] Comments: Exam: CT LUMBAR SPINE W CONTRAST [...] above Electronically signed: Petar Mg. Transcribed by: [email or web address], User Resident: Electronically Signed by: PETAR MG @ 03/01/2021 02:21 PM Normal [facility] LUMBAR MYELOGRAMon 2 LUMBAR MYELOGRAM [facility] Department of Radiology [address] [place] [id number] ======== Patient Name: SUKHDEEP SIMENTAL : 1965 Sex: M Age: Race: White Pt. Location: 84 Patient Status: O Ordered Date: 02/13/2021 9:35:00 AM Completed Date: 02/28/2021 02:06 PM Requesting Provider: JASON MILLER Attending Provider: JASON MILLER Report Copy To: Signs & Symptoms: Z98.1 Arthrodesis status I10 History: [phone] Is patient on thinners? Eliquis hold 48hrs. 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 Consent was obtained. Timeout: [place] protocol timeout verification performed. PROCEDURE: Estimated blood [...] report. Electronically signed: Petar Mg. Transcribed by: [email or web address], User Resident: OCHOA HONG Electronically Signed by: PETAR MG @ 02/28/2021 03:13 PM I personally read this/these film(s) with this resident Normal [facility] LUMBAR SPINE 4 OR 5 [facility] LUMBAR SPINE 4 OR 5 [facility] Department of Radiology [address] [place] [phone] ======== Patient Name: SUKHDEEP SIMENTAL : 1965 Sex: M Age: Race: White Pt. Location: Patient Status: D Ordered Date: 02/01/2021 1:05:00 PM Completed Date: 02/01/2021 01:12 PM Requesting Provider: JASON MILLER Attending Provider: JASON MILLER Report Copy To: Signs & Symptoms: M54.16 Radiculopathy, lumbar region I10 History: [place] Comments: Views (X-RAY, LUMBAR SPINE): AP, Lateral, [...] Osteopenia. Electronically signed: Ahsan Farmer. Transcribed by: [email or web address], User Resident: Electronically Signed by: AHSAN FARMER @ 02/02/2021 10:14 AM Normal [facility] Comment on above: Order Comment: Views (X-RAY, LUMBAR SPINE): AP, Lateral, L5-S1 Spot, Flexion, Extension C REACTIVE PROTEINon 021 CRP [Mass/Vol] 9.6 mg/L High 0.0-7.0 [facility] Comment on above: Performed By: #### 6 1405 #### [facility] [address] [place] [address], [facility] CBC W/DIFFon 12-15-2020 ABS IMM GRANS 0.1 10*3/uL Normal 0.0-0.2 [facility] Comment on above: Performed By: #### 5 6505, 957[address] #### [facility] [address] [place] [address], [facility] ABS NEUTROPHILS 6.1 10*3/uL Normal 1.6-7.6 [facility] Comment on above: Performed By: #### 5 6505, 37773 #### [facility] [address] [place] [address], [place] Basophils (Bld) [#/Vol] 0.1 10*3/uL Normal 0.0-0.2 [facility] Comment on above: Performed By: #### 5 6505, 04454 #### [facility] [address] [place] [address], [place] Basophils/100 WBC (Bld) 0.8 % Normal 0.0-1.0 [facility] Comment on above: Performed By: #### 5 6505, 13298 #### [facility] [address] [place] [address], [place] Eosinophils (Bld) [#/Vol] 0.4 10*3/uL Normal 0.0-0.5 [facility] Comment on above: Performed By: #### 5 6505, 95814 #### [facility] [address] [place] [address], [place] Eosinophils/100 WBC (Bld) 4.1 % Normal 0.0-6.0 [facility] Comment on above: Performed By: #### 5 6505, 48592 #### [facility] [address] [place] [address], [place] Erythrocyte distribution width (RBC) [Ratio] 12.6 % Normal 11.5-15.0 [facility] Comment on above: Performed By: #### 5 6505, 82750 #### [facility] [address] [place] [address], [place] Hematocrit (Bld) [Volume fraction] 40.2 % Normal 39.0-50.0 [facility] Comment on above: Performed By: #### 5 6505, 27073 #### [facility] [address] [place] [address], [facility] Hemoglobin (Bld) [Mass/Vol] 12.6 g/dL Low 13.0-17.0 [facility] Comment on above: Performed By: #### 5 6505, 77579 #### [facility] [address] [place] [address], [facility] IMMATURE GRANS 0.7 % Normal 0.0-1.0 [facility] Comment on above: Performed By: #### 5 6505, 20154 #### [facility] [address] [facility] [place] [address], [facility] Lymphocytes (Bld) [#/Vol] 2.0 10*3/uL Normal 1.2-4.0 [facility] Comment on above: Performed By: #### 5 6505, 36306 #### [facility] [address] [facility] [facility] [place] [address], [facility] Lymphocytes/100 WBC (Bld) 20.6 % Normal 20.0-45.0 [facility] Comment on above: Performed By: #### 5 6505, 50964 #### [facility] [address] [facility] [facility] [place] [address], [facility] MCH (RBC) [Entitic mass] 30.0 pg Normal 27.0-33.0 [facility] Comment on above: Performed By: #### 5 6505, 35235 #### [facility] [address] [place] [address], [facility] MCHC (RBC) [Mass/Vol] 31.3 g/dL Low 32.0-35.0 [facility] Comment on above: Performed By: #### 5 6505, 82937 #### [facility] [address] [place] [address], [facility] MCV (RBC) [Entitic vol] 95.7 fL Normal 82.0-98.0 [facility] Comment on above: Performed By: #### 5 6505, 77057 #### [facility] [address] [place] [id number], [facility] Monocytes (Bld) [#/Vol] 1.2 10*3/uL High 0.1-1.0 [facility] Comment on above: Performed By: #### 5 6505, 10605 #### [facility] [address] [place] [id number], [facility] MONOS 11.9 % Normal 5.0-12.0 [facility] Comment on above: Performed By: #### 5 6505, 93160 #### [facility] [address] [place] [address], [facility] Neutrophils/100 WBC (Bld) 61.9 % Normal 40.0-72.0 [facility] Comment on above: Performed By: #### 5 6505, 81795 #### [facility] [address] [facility] [place] [address], [facility] Nucleated RBC/100 WBC (Bld) [Ratio] 0 % Normal 0-0 [facility] Comment on above: Performed By: #### 5 6505, 20981 #### [facility] [address] [place] [address], [place] PLAT CNT 335 10*3/uL Normal 150-400 [facility] Comment on above: Performed By: #### 5 6505, 32816 #### [facility] [address] [place] [address], [facility] RBC (Bld) [#/Vol] 4.20 10*6/uL Normal 4.20-5.[address] [facility] Comment on above: Performed By: #### 5 6505, 96625 #### [facility] [address] WBC (Bld) [#/Vol] 9.86 10*3/uL Normal 4.00-10.60 [facility] Comment on above: Performed By: #### 5 6506, 41873 #### [address] KNEE RIGHT 4 [facility] 1 KNEE RIGHT 4 [facility] Department of Radiology [address] [place] [phone] ======== Patient Name: SUKHDEEP SIMENTAL : 1965 Sex: M Age: Race: White Pt. Location: OUTP Patient Status: D Ordered Date: 12/15/2020 12:25:00 PM Completed Date: 12/15/2020 12:35 PM Requesting Provider: ROBBI PEPE Attending Provider: ROBBI PEPE Report Copy To: Signs & Symptoms: L03.115 cellulitis of rt lower limb History: Comments: evaluate Exam: KNEE RIGHT 4 [facility] ======== KNEE RIGHT 4 [facility] 12/15/2020 12:35 PM CLINICAL INDICATIONS: [...] report. Electronically signed: Layo Jimenes. Transcribed by: [email or web address], User Resident: LAYO CORDERO Electronically Signed by: LAYO JIMENES @ 12/16/2020 09:18 AM I personally read this/these film(s) with this resident Normal [facility] Comment on above: Order Comment: evalu ate SEDIMENTATION RATEon 021 SED RATE 77 mm/hr High 0-10 [facility] Comment on above: Performed By: #### 5 6506, 02184 #### [facility] [address] COVID-19 Positive/Negativeon 05-05-2020 COVID-19 Positive/Negative Negative Negative [facility] Comment on above: Reference: NegativeT esting for SARS-CoV-2 by RT-PCRThis test was developed and its performance characteristics determined by [employer] ([employer] and validated at the [facility]. This test has not been FDA cleared [...] among non-blacks MDRD (S/P/Bld) [Vol rate/Area] mL/min/{1.73_m2} [facility] Otheron 05-05-2020 GFR/1.73 sq M.predicted MDRD (S/P/Bld) [Vol rate/Area] mL/min/{1.73_m2} [facility] Comment on above: GFR estimated refere nce range: According to KDOQI guidelines, <60 ml/min/1.73m2 is sufficient to diagnose a patient with chronic kidney disease. Pharmacy Creatinine Clearance (Chem N/A [facility] Coronavirus 2019 PCR Interp N/A [facility] Serum or plasma calcium yeni urement (mass/volume)on 05-05-2020 Calcium [Mass/Vol] 8.6 mg/dL 8.2-10.2 [facility] Serum or plasma chloride xi surement (moles/volume)on 05-05-2020 Chloride [Moles/Vol] 104 mmol/L 95-114 [facility] Serum or plasma creatinine m easurement with calculation of estimated glomerular filtron 05-05-2020 Creatinine [Mass/Vol] 1.14 mg/dL 0.64-1.27 [facility] Serum or plasma glucose yeni urement (mass/volume)on 05-05-2020 Glucose [Mass/Vol] 178 mg/dL 70-100 [facility] Comment on above: ADA recommended refe rence rangeRandom Glucose Reference Range is dependent on time and content of last meal. Glucose of more than 200 mg/dL in a nonstressed, ambulatory subject supports the diagnosis of Diabetes Mellitus. Serum or plasma potassium me asurement (moles/volume)on 05-05-2020 Potassium [Moles/Vol] 4.0 mmol/L 3.5-5.1 [facility] Serum or plasma sodium measu rement (moles/volume)on 05-05-2020 Sodium [Moles/Vol] 141 mmol/L 136-146 [facility] Serum or plasma total carbon dioxide measurement (moles/volume)on 05-05-2020 CO2 [Moles/Vol] 27.4 mmol/L 22.0-30.0 [facility] Serum or plasma urea nitroge n measurement (mass/volume)on 05-05-2020 Urea nitrogen [Mass/Vol] 18 mg/dL 9-23 [facility] .eGFRon 06-10-2019 eGFR AA >60 Normal >=60 [facility] Comment on above: Result Comment: Resu lt = 0-14.9 mL/min/1.73 m2 Kidney failure or Dialysis Result = 15-29 mL/min/1.73 m2 Severe decrease in GFR Result = 30-59 mL/min/1.73 m2 Moderate decrease in GFR Result >= 60 mL/min/1.73 m2 Normal or increased GFR Performed By: #### E GFR #### [address] [address] eGFR Non-AA >60 Normal >=60 [facility] Comment on above: Result Comment: [...] dosing. Performed By: #### E GFR #### [address] [address] Basic Metabolic Profileon Anion gap [Moles/Vol] 15 mmol/L Normal 7-17 [facility] Comment on above: Performed By: #### C [id number] #### [address] [address] Calcium [Mass/Vol] 9.8 mg/dL Normal 8.5-10.3 [facility] Comment on above: Performed By: #### C [id number] #### [address] [address] Chloride [Moles/Vol] 103 mmol/L Normal 98-110 [facility] Comment on above: Performed By: #### C [id number] #### [address] [address] CO2 [Moles/Vol] 27 mmol/L Normal 22-32 [facility] Comment on above: Performed By: #### C [id number] #### [address] [address] Creatinine [Mass/Vol] 0.98 mg/dL Normal 0.61-1.24 [facility] Comment on above: Performed By: #### C [id number] #### [address] [address] Glucose [Mass/Vol] 198 mg/dL High 70-99 [facility] Comment on above: Performed By: #### C [id number] #### [address] [address] Potassium [Moles/Vol] 4.0 mmol/L Normal 3.4-4.8 [facility] Comment on above: Performed By: #### C [id number] #### [address] [address] Sodium [Moles/Vol] 141 mmol/L Normal 133-142 [facility] Comment on above: Performed By: #### C [id number] #### [address] [address] Urea nitrogen [Mass/Vol] 18 mg/dL Normal 8-26 [facility] Comment on above: Performed By: #### C [id number] #### [address] [address] Urea nitrogen/Creatinine [Mass ratio] 18.4 mg/mg Normal 10.0-20.0 [facility] Comment on above: Performed By: #### C [id number] #### [address] [address] CBCon 06-10-2019 Erythrocyte distribution width (RBC) [Ratio] 13.0 % Normal 11.6-14.8 [facility] Comment on above: Performed By: #### C BCI #### [address] [address] Hematocrit (Bld) [Volume fraction] 46.2 % Normal 41.0-53.0 [facility] Comment on above: Performed By: #### C BCI #### [address] [address] Hemoglobin (Bld) [Mass/Vol] 16.2 g/dL Normal 13.5-17.5 [facility] Comment on above: Performed By: #### C BCI #### [address] [address] MCH (RBC) [Entitic mass] 32.1 pg Normal 27.0-35.0 [facility] Comment on above: Performed By: #### C BCI #### [address] [address] MCHC (RBC) [Mass/Vol] 35.0 % Normal 31.0-37.0 [facility] Comment on above: Performed By: #### C BCI #### [address] [address] MCV (RBC) [Entitic vol] 91.6 fL Normal 80.0-100.0 [facility] Comment on above: Performed By: #### C BCI #### [address] [address] Platelet mean volume (Bld) [Entitic vol] 7.5 fL Normal 6.7-10.6 [facility] Comment on above: Performed By: #### C BCI #### [address] [address] Platelets (Bld) [#/Vol] 263 x10*3/mcL Normal 150-350 [facility] Comment on above: Performed By: #### C BCI #### [address] [address] RBC (Bld) [#/Vol] 5.04 x10*6/mcL Normal 4.30-5.80 [facility] Comment on above: Performed By: #### C BCI #### [address] [address] WBC (Bld) [#/Vol] 9.7 x10*3/mcL Normal 4.5-11.0 [facility] Comment on above: Performed By: #### C BCI #### [address] [address] Hgb A1con 06-10-2019 HbA1c (Bld) [Mass fraction] 134 mg/dL High 68-114 [facility] Comment on above: Result Comment: Math ematical Calc approx. The mean gluc equivalency of A1c Performed By: #### H BA1C #### [address] [address] HbA1c (Bld) [Mass fraction] 6.3 % A1c High 4.0-5.6 [facility] Comment on above: Result Comment: Refe rence Range: 4.0 - 5.6 % Normal 5.7 - 6.4 % Pre-Diabetes > 6.5 % Diabetes Performed By: #### H BA1C #### [address] [address] MRSA, PCRon 06-10-2019 INR Coag (Bld) [Relative time] Negative Normal [facility] Comment on above: Result Comment: The Manflu Xpert MRSA Assay is a qualitative in [...] clinician. Performed By: #### M RSAPC #### [address] [address] PTon 06-10-2019 INR Coag (PPP) [Relative time] 1.0 {INR} Normal <=3.5 [facility] Comment on above: Result Comment: INR has no normal range. INR Therapeutic range is: 2.0-3.0 (AF, CVA, TIAs, DVT prophylaxis, acute DVT) 2.5-3.5 ([facility] heart valves, recurrent thrombosis/emboli) Performed By: #### P TINR #### [address] [address] PT Coag (PPP) [Time] 11.9 s Normal 8.9-11.9 [facility] Comment on above: Performed By: #### P TINR #### [address] [address] PTTon 06-10-2019 aPTT Coag (Bld) [Time] 23.0 s Normal 19.2-27.8 [facility] Comment on above: Performed By: #### P TT #### [address] [address] XR Chest 2 Viewson 0 XR Chest [...] Electronically Signed in Other Vendor System) Normal [facility] XR LUMBAR SPINE (2-3 VIEWS)o [...] Juwan Kumar MD 04/16/19 Final result Normal [facility] Limited range of motion without evidence of instability. Multilevel disc degeneration. [place], [place] EXAMINATION: 2 XRAY VIEWS OF THE [...] appear intact. [facility] [place] [facility], [employer] Incoming Radiant Results From [employer] - 04/16/2019 11:16 AM EST EXAMINATION: 2 [...] disc degeneration. [facility] [place] CT LUMBAR SPINE WO CONTRASTo n 04-11-2019 [...] Ahsan Guidry MD 04/11/19 Final result Normal [facility] XR PELVIS (1-2 VIEWS)on 03-28 [...] Ahsan Guidry MD 04/11/19 Final result Normal [facility] No acute findings. [employer] Phone: EXAMINATION: ONE XRA Y VIEW OF THE PELVIS 04/11/2019 1:24 pm COMPARISON: None. HISTORY: ORDERING SYSTEM PROVIDED HISTORY: fall right buttock pain TECHNOLOGIST PROVIDED HISTORY: fall right buttock pain Reason for Exam: fall buttocks pain Acuity: Acute Type of Exam: Initial FINDINGS: No acute fracture. No widening of the sacroiliac joints. Degenerative changes within the lower lumbar spine. Mild bilateral hip osteoarthritis. [employer] Phone: Josafat, [employer] Incoming Radiant Results From [employer] - 04/11/2019 2:02 PM EST EXAMINATION: ONE [...] bilateral hip osteoarthritis. IMPRESSION: No acute findings. [employer] Work Phone: Vital Signs Date Time Vital Sign Value Performing Clinician Facility 02-13-2024 11:22-0500 Body mass index (BMI) [Ratio] 38.99 kg/m2 Ahsan Nienberg PA Work Phone: [facility] 02-13-2024 11:22-0500 Body weight 119.75 kg Ahsan Nienberg PA Work Phone: [facility] 02-13-2024 11:22-0500 Diastolic blood pressure 100 mm[Hg] Ahsan Nienberg PA Work Phone: [facility] 02-13-2024 11:22-0500 Heart rate 92 /min Ahsan Nienberg PA Work Phone: [facility] 02-13-2024 11:22-0500 Respiratory rate 18 /min Ahsan Nienberg PA Work Phone: [facility] 02-13-2024 11:22-0500 Systolic blood pressure 150 mm[Hg] Ahsan Nienberg PA Work Phone: [facility] 12-05-2023 10:05-0400 Body height 175.3 cm Ahsan Nienberg PA Work Phone: [facility] 12-05-2023 10:05-0400 Body mass index (BMI) [Ratio] 39.28 kg/m2 Ahsan Nienberg PA Work Phone: [facility] 12-05-2023 10:05-0400 Body weight 120.66 kg Ahsan Nienberg PA Work Phone: [facility] 12-05-2023 10:05-0400 Diastolic blood pressure 90 mm[Hg] Ahsan Nienberg PA Work Phone: [facility] 12-05-2023 10:05-0400 Heart rate 91 /min Ahsan Nienberg PA Work Phone: [facility] 12-05-2023 10:05-0400 Respiratory rate 16 /min Ahsan Flynn PA Work Phone: [facility] 12-05-2023 10:05-0400 SaO2% (BldA) [Mass fraction] 95 % Ahsan NOVAK Work Phone: [facility] 12-05-2023 10:05-0400 Systolic blood pressure 131 mm[Hg] Ahsan NOVAK Work Phone: [facility] 11-07-2023 11:09-0400 Body height 175.26 cm [facility] 11-07-2023 11:09-0400 Body mass index (BMI) [Ratio] 39 kg/m2 [facility] 11-07-2023 11:09-0400 Body temperature 97.4 [degF] [facility] 11-07-2023 11:09-0400 Body weight 119.86 kg [facility] 11-07-2023 11:09-0400 Diastolic blood pressure 85 mm[Hg] [facility] 11-07-2023 11:09-0400 Heart rate 88 /min [facility] 11-07-2023 11:09-0400 Respiratory rate 18 /min [facility] 11-07-2023 11:09-0400 SaO2% (BldA) [Mass fraction] 98 % [facility] 11-07-2023 11:09-0400 Systolic blood pressure 123 mm[Hg] [facility] 08-15-2023 11:27-0400 Diastolic blood pressure 84 mm[Hg] Ahsan NOVAK Work Phone: [facility] 08-15-2023 11:27-0400 Heart rate 110 /min Ahsan Flynn PA Work Phone: [facility] 08-15-2023 11:27-0400 Respiratory rate 20 /min Ahsan Flynn PA Work Phone: [facility] 08-15-2023 11:27-0400 Systolic blood pressure 126 mm[Hg] Ahsan Flynn PA Work Phone: [facility] 02-14-2023 11:12-0500 Body height 175.3 cm Ahsan Flynn PA Work Phone: [facility] 02-14-2023 11:12-0500 Body mass index (BMI) [Ratio] 39.43 kg/m2 Ahsan Flynn PA Work Phone: [facility] 02-14-2023 11:12-0500 Body weight 121.11 kg Ahsan Flynn PA Work Phone: [facility] 02-14-2023 11:12-0500 Diastolic blood pressure 94 mm[Hg] Ahsan Flynn PA Work Phone: [facility] 02-14-2023 11:12-0500 Heart rate 89 /min Ahsan Flynn PA Work Phone: [facility] 02-14-2023 11:12-0500 Respiratory rate 18 /min Ahsan Flynn PA Work Phone: [facility] 02-14-2023 11:12-0500 SaO2% (BldA) [Mass fraction] 98 % Ahsan Flynn PA Work Phone: [facility] 02-14-2023 11:12-0500 Systolic blood pressure 143 mm[Hg] Ahsan Flynn PA Work Phone: [facility] 02-07-2023 14:37-0500 Body temperature 98.6 [degF] Riddhi Goss TELEPHONE RECORDER.WORKDAY CONSULTANT Work Phone: [facility] 02-07-2023 14:37-0500 Body weight 122.92 kg Riddhi Goss TELEPHONE RECORDER.WORKDAY CONSULTANT Work Phone: [facility] 02-07-2023 14:37-0500 Diastolic blood pressure 80 mm[Hg] Riddhi Goss TELEPHONE RECORDER.WORKDAY CONSULTANT Work Phone: [facility] 02-07-2023 14:37-0500 Heart rate 79 /min Riddhi Goss TELEPHONE RECORDER.WORKDAY CONSULTANT Work Phone: [facility] 02-07-2023 14:37-0500 SaO2% (BldA) [Mass fraction] 98 % Riddhi Goss TELEPHONE RECORDER.WORKDAY CONSULTANT Work Phone: [facility] 02-07-2023 14:37-0500 Systolic blood pressure 157 mm[Hg] Riddhi Goss TELEPHONE RECORDER.WORKDAY CONSULTANT Work Phone: [facility] 02-04-2023 09:16-0500 Blood Pressure Location Cecelia MURILLO [facility] 02-04-2023 09:16-0500 Diastolic blood pressure 88 mm[Hg] Cecelia MURILLO [facility] 02-04-2023 09:16-0500 Heart rate 79 /min Cecelia MURILLO [facility] 02-04-2023 09:16-0500 Respiratory rate 16 /min Cecelia MURILLO [facility] 02-04-2023 09:16-0500 Systolic blood pressure 139 mm[Hg] Cecelia MURILLO [facility] 12-20-2022 14:26-0400 Body height 175.3 cm Singh Morgan PA-C Work Phone: [facility] 12-20-2022 14:26-0400 Body weight 123.11 kg Singh Morgan PA-C Work Phone: [facility] 12-20-2022 14:26-0400 Diastolic blood pressure 84 mm[Hg] Singh Morgan PA-C Work Phone: [facility] 12-20-2022 14:26-0400 Heart rate 76 /min Singh Morgan PA-C Work Phone: [facility] 12-20-2022 14:26-0400 SaO2% (BldA) [Mass fraction] 97 % Singh Morgan PA-C Work Phone: [facility] 12-20-2022 14:26-0400 Systolic blood pressure 165 mm[Hg] Singh Morgan PA-C Work Phone: [facility] 12-06-2022 15:00-0400 Body height 175.26 cm Oumou Reji Other [employer] Other 12-06-2022 15:00-0400 Body mass index (BMI) [Ratio] 39.9 kg/m2 Oumou Reji Other [employer] Other 12-06-2022 15:00-0400 Body temperature 98.1 [degF] Oumou Reji Other [employer] Other 12-06-2022 15:00-0400 Body weight 122.56 kg Oumou Reji Other [employer] Other 12-06-2022 15:00-0400 Diastolic blood pressure 81 mm[Hg] Oumou Reji Other [employer] Other 12-06-2022 15:00-0400 Respiratory rate 20 /min Oumou Reji Other [employer] Other 12-06-2022 15:00-0400 SaO2% (BldA) [Mass fraction] 97 % Oumou Reji Other [employer] Other 12-06-2022 15:00-0400 Systolic blood pressure 127 mm[Hg] Oumou Reji Other [employer] Other 11-05-2022 14:17-0400 Body height 175.3 cm Thomas Mathew MD Work Phone: [facility] 11-05-2022 14:17-0400 Body weight 123.97 kg Thomas Mathew MD Work Phone: [facility] 11-05-2022 14:17-0400 Diastolic blood pressure 84 mm[Hg] Thomas Mathew MD Work Phone: [facility] 11-05-2022 14:17-0400 Heart rate 66 /min Thomas Mathew MD Work Phone: [facility] 11-05-2022 14:17-0400 SaO2% (BldA) [Mass fraction] 100 % Thomas Mathew MD Work Phone: [facility] 11-05-2022 14:17-0400 Systolic blood pressure 156 mm[Hg] Thomas Mathew MD Work Phone: [facility] 10-17-2022 15:41-0400 Blood Pressure Location Maite SQUIRES [facility] [place] 10-17-2022 15:41-0400 Diastolic blood pressure 84 mm[Hg] Maite SQUIRES [facility] [place] 10-17-2022 15:41-0400 Heart rate 70 /min Maite SQUIRES [facility] [place] 10-17-2022 15:41-0400 Respiratory rate 16 /min Maite SQUIRES [facility] [place] 10-17-2022 15:41-0400 Systolic blood pressure 118 mm[Hg] Maite RICKL [facility] [place] 06-21-2022 10:20-0400 Body height 175.26 cm Oumouyesenia Weinstein Other [employer] Other 06-21-2022 10:20-0400 Body mass index (BMI) [Ratio] 40.02 kg/m2 Oumou Reji Other [employer] Other 06-21-2022 10:20-0400 Body temperature 97.6 [degF] Oumou Reji Other [employer] Other 06-21-2022 10:20-0400 Body weight 122.93 kg Oumou Reji Other [employer] Other 06-21-2022 10:20-0400 Diastolic blood pressure 80 mm[Hg] Oumou Reji Other [employer] Other 06-21-2022 10:20-0400 Respiratory rate 20 /min Oumou Reji Other [employer] Other 06-21-2022 10:20-0400 SaO2% (BldA) [Mass fraction] 97 % Oumou Reji Other [employer] Other 06-21-2022 10:20-0400 Systolic blood pressure 114 mm[Hg] Oumou Reji Other [employer] Other 03-19-2022 09:48-0500 Blood Pressure Location Cecelia LIDIA [facility] 03-19-2022 09:48-0500 Diastolic blood pressure 88 mm[Hg] Cecelia MURILLO [facility] 03-19-2022 09:48-0500 Heart rate 78 /min Cecelia MURILLO [facility] 03-19-2022 09:48-0500 Respiratory rate 16 /min Cecelia MURILLO [facility] 03-19-2022 09:48-0500 Systolic blood pressure 139 mm[Hg] Cecelia MURILLO [facility] 01-11-2022 11:15-0500 Body temperature 98.1 [degF] PHYSICIAN NO [facility] 01-11-2022 11:15-0500 Diastolic blood pressure 88 mm[Hg] PHYSICIAN NO [facility] 01-11-2022 11:15-0500 Heart rate 79 /min PHYSICIAN NO [facility] 01-11-2022 11:15-0500 Respiratory rate 18 /min PHYSICIAN NO [facility] 01-11-2022 11:15-0500 SaO2% (BldA) [Mass fraction] 96 % PHYSICIAN NO [facility] 01-11-2022 11:15-0500 Systolic blood pressure 137 mm[Hg] PHYSICIAN NO [facility] 12-15-2021 12:20-0400 Body height 175.26 cm Estephanie Lowry Other [facility] [employer] Other 12-15-2021 12:20-0400 Body mass index (BMI) [Ratio] 41.49 kg/m2 Estephanie Lowry Other Work in Field [facility] [employer] Other 12-15-2021 12:20-0400 Body temperature 98.6 [degF] Estephanie Lowry Other [employer] Other 12-15-2021 12:20-0400 Body weight 127.46 kg Estephanie Lowry Other [employer] Other 12-15-2021 12:20-0400 Diastolic blood pressure 96 mm[Hg] Estephanie Lowry Other [employer] Other 12-15-2021 12:20-0400 Respiratory rate 18 /min Estephanie Hammondmond Other [employer] Other 12-15-2021 12:20-0400 SaO2% (BldA) [Mass fraction] 97 % Estephanie Lowry Other [employer] Other 12-15-2021 12:20-0400 Systolic blood pressure 132 mm[Hg] Estephanie Lowry Other [employer] Other 10-25-2021 14:00-0400 Body height 175.26 cm Oumou Reji Other [employer] Other 10-25-2021 14:00-0400 Body mass index (BMI) [Ratio] 42.02 kg/m2 Oumou Reji Other [employer] Other 10-25-2021 14:00-0400 Body temperature 96.8 [degF] Oumou Reji Other [employer] Other 10-25-2021 14:00-0400 Body weight 129.09 kg Oumou Reji Other [employer] Other 10-25-2021 14:00-0400 Diastolic blood pressure 69 mm[Hg] Oumou Reji Other [employer] Other 10-25-2021 14:00-0400 Respiratory rate 20 /min Oumou Reji Other [employer] Other 10-25-2021 14:00-0400 SaO2% (BldA) [Mass fraction] 98 % Oumou Reji Other [employer] Other 10-25-2021 14:00-0400 Systolic blood pressure 109 mm[Hg] Oumou Erji Other [employer] Other 05-26-2021 10:45-0400 Body temperature 98.8 [degF] Octavio Mcclellan [employer] Work Phone: [employer] 05-26-2021 10:45-0400 Respiratory rate 18 /min Octavio Mcclellan [employer] Work Phone: [employer] 05-26-2021 10:45-0400 SaO2% (BldA) [Mass fraction] 98 % Octavio Mcclellan [employer] Work Phone: [employer] 05-26-2021 07:30-0400 Heart rate 105 /min Octavio Mcclellan [employer] Work Phone: [employer] 05-25-2021 23:20-0400 Diastolic blood pressure 85 mm[Hg] Octavio Mcclellan [employer] Work Phone: [employer] 05-25-2021 23:20-0400 Systolic blood pressure 130 mm[Hg] Octavio Mcclellan [employer] Work Phone: [employer] 05-24-2021 10:15-0400 Body height 175.3 cm Octavio Mcclellan [employer] Work Phone: [employer] 05-24-2021 10:15-0400 Body mass index (BMI) [Ratio] 50.65 kg/m2 Octavio Mcclellan [employer] Work Phone: [employer] 05-24-2021 10:15-0400 Body weight 155.58 kg Octavio Mcclellan [employer] Work Phone: [employer] 05-08-2021 11:04-0400 Body height 175.[address] [facility] [employer] 05-08-2021 11:04-0400 Body mass index (BMI) [Ratio] 51.98 kg/m2 [facility] [employer] 05-08-2021 11:04-0400 Body temperature 97.3 [degF] [facility] [employer] [facility] [employer] 05-08-2021 11:04-0400 Body weight 159.[address] [facility] 05-08-2021 11:04-0400 Diastolic blood pressure 83 mm[Hg] [address] [facility] 05-08-2021 11:04-0400 Heart rate 126 /min [address] [facility] 05-08-2021 11:04-0400 Respiratory rate 20 /min [address] [facility] 05-08-2021 11:04-0400 SaO2% (BldA) [Mass fraction] 95 % [address] [facility] 05-08-2021 11:04-0400 Systolic blood pressure 121 mm[Hg] [address] [facility] 01-08-2020 14:04-0500 BMI (Body Mass Index) 47.99 kg/m2 [facility] [employer] [facility] 01-08-2020 14:04-0500 Body Temperature 96.69 [degF] [facility] [employer] [facility] 01-08-2020 14:04-0500 Body weight 147.42 kg [facility] [employer] [facility] 01-08-2020 14:04-0500 Height 175.3 cm [facility] [employer] [facility] 04-11-2019 12:42-0500 BMI (Body Mass Index) 44.3 kg/m2 [employer] Work Phone: 04-11-2019 12:42-0500 Body Temperature 97.39 [degF] [employer] Work Phone: 04-11-2019 12:42-0500 Body weight 136.08 kg [employer] Work Phone: 04-11-2019 12:42-0500 BP Diastolic 98 mm[Hg] [employer] Work Phone: 04-11-2019 12:42-0500 BP Systolic 196 mm[Hg] [employer] Work Phone: 04-11-2019 12:42-0500 Height 175.3 cm [employer] Phone: 04-11-2019 12:42-0500 Pulse (Heart Rate) 72 /min [employer] Phone: 04-11-2019 12:42-0500 Pulse Oximetry 96 % [employer] Phone: 04-11-2019 12:42-0500 Respiratory Rate 16 /min [employer] Work Phone: Encounters Encounter Date Encounter Type Care Provider Facility Start: 08-13-2025 ambulatory Cecelia MURILLO [facility] ty: [place] Start: 08-07-2024 End: 08-07-2024 ambulatory Cecelia MURILLO Facility:[facility] [place] Start: 08-07-2024 End: 08-07-2024 Patient encounter procedure [facility] Start: 06-22-2024 End: 06-22-2024 ambulatory Cecelia MURILLO Facility:[facility] [place] Start: 06-17-2024 End: 06-17-2024 ambulatory [facility] Start: 05-18-2024 ambulatory [facility] Start: 05-18-2024 End: 05-18-2024 ambulatory [facility] Start: 04-10-2024 End: 04-21-2024 Telephone encounter Cherelle Oleary RN [facility] Start: 03-03-2024 End: 03-04-2024 Telephone encounter Cherelle Oleary RN [facility] Start: 02-13-2024 End: 02-13-2024 ambulatory AHSAN FLYNN [facility] Start: 02-13-2024 End: 02-13-2024 Office outpatient visit 15 minutes Ahsan Flynn PA Work Phone: [facility] Comment on above: Spinal stenosis, lum bar region, with neurogenic claudication (Primary Dx) Start: 02-03-2024 End: 02-03-2024 ambulatory Cecelia MURILLO Facility:[facility] Start: 02-03-2024 End: 02-03-2024 Patient encounter procedure Cecelia MURILLO [facility] Start: 12-05-2023 End: 12-05-2023 ambulatory [facility] Start: 12-05-2023 End: 12-05-2023 Office outpatient visit 15 minutes Ahsan NOVAK Work Phone: [facility] Comment on above: Spinal stenosis, lum bar region, with neurogenic claudication (Primary Dx) Start: 11-07-2023 End: 11-07-2023 ambulatory [facility] Work Phone: Start: 11-07-2023 End: 11-07-2023 Patient encounter procedure [facility] Physician [facility] Ne[facility] Work Phone: Start: 10-29-2023 Non-patient / Non-visit [facility] Physician [facility] Work Phone: Start: 10-07-2023 End: 06-25-2024 Telephone encounter Thomas Mathew MD Work Phone: Neurology Comment on above: Appointment Start: 10-04-2023 Telephone encounter Thomas crabtree MD Work Phone: Neurology Comment on above: Results Start: 08-15-2023 End: 08-15-2023 Office outpatient visit 15 minutes Ahsan ONVAK Work Phone: [facility] Comment on above: Spinal stenosis, lum bar region, with neurogenic claudication (Primary Dx) Start: 08-15-2023 End: 08-15-2023 ambulatory [facility] Start: 07-30-2023 Telephone encounter Thomas crabtree MD Work Phone: Neurology Comment on above: Appointment; Orders Start: 07-23-2023 Telephone encounter Thomas crabtree MD Work Phone: Neurology Start: 05-08-2023 End: 05-08-2023 ambulatory Thomas Mathew MD Work Phone: Neurosurgery Comment on above: Radiculopathy, lumba r region (Primary Dx) Start: 05-08-2023 End: 05-08-2023 Telemedicine consultation with patient Thomas Mathew MD Work Phone: [facility] Start: 05-08-2023 Telephone encounter Cherelle Oleary RN [facility] Start: 05-07-2023 Telephone encounter Cherelle Oleary RN [facility] Start: 04-16-2023 Telephone encounter Thomas crabtree MD Work Phone: Neurology Comment on above: Imaging Disc Start: 04-10-2023 Telephone encounter Thomas crabtree MD Work Phone: Neurology Comment on above: PT Certification Start: 04-09-2023 Telephone encounter Thomas crabtree MD Work Phone: Neurology Start: 02-14-2023 End: 02-14-2023 Office outpatient visit 15 minutes Ahsan NOVAK Work Phone: 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) Start: 02-07-2023 Telephone encounter Thomas crabtree MD Work Phone: Neurosurgery Start: 02-04-2023 End: 02-04-2023 Patient encounter procedure Cecelia Jj LIDIA [facility] Start: 01-23-2023 Telephone encounter Thomas [...] Evaluation and management of inpatient THOMAS MATHEW Facility:[facility] Start: 12-06-2022 End: 12-06-2022 ambulatory Oumou Weinstein Other [employer] Other Start: 12-06-2022 Office outpatient vi sit 25 minutes Oumou Weinstein [facility] Start: 11-21-2022 End: 11-21-2022 ambulatory MAITE GALLOWAY Facility:[facility] Start: 11-21-2022 End: 11-21-2022 ambulatory BLAYNE ISABEL Facility:[facility] Start: 11-21-2022 End: 11-21-2022 ambulatory BLAYNE ISABEL Facility:[facility] Start: 11-21-2022 Encounter for other preprocedural examination BLAYNE ISABEL [facility] Start: 11-05-2022 End: 11-05-2022 Patient encounter procedure Thomas Mathew MD Work Phone: Neurosurgery Comment on above: 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 Facility:[facility] Start: 06-21-2022 End: 06-21-2022 ambulatory Oumou Reji Other [employer] Other Start: 06-21-2022 Office outpatient vi sit 25 minutes Oumou Reji [facility] Start: 06-11-2022 End: 06-12-2022 ambulatory OUMOU REJI Facility:[facility] Start: 04-03-2022 End: 04-03-2022 ambulatory Oumou Reji Other [employer] Other Start: 04-03-2022 Telephone encounter Oumou Reji [facility] Start: 03-20-2022 Encounter for preprocedural laboratory examination DR DOCTOR MILES [facility] Start: 03-19-2022 End: 03-19-2022 Patient encounter procedure Cecelia MURILLO [facility] Start: 03-15-2022 End: 03-16-[address] DOCTOR MILES Facility:[facility] Start: 03-15-2022 End: 03-16-2022 Encounter for preprocedural laboratory examination DR DOCTOR MILES Facility:[facility] Start: 03-12-2022 End: 03-13-[address] CECELIA MURILLO . Facility:[facility] Start: 03-08-2022 End: 03-09-[address] DOCTOR MILES Facility:[facility] Start: 01-27-2022 Encounter for genera l adult medical examination without abnormal findings DR BLAYNE ISABEL . [facility] Start: 01-24-2022 End: 01-25-[address] BLAYNE ISABEL . Facility:[facility] Start: 01-24-2022 End: 01-25-2022 Encounter for general adult medical examination without abnormal findings DR BLAYNE ISABEL . Facility:[facility] Start: 01-22-2022 End: 01-22-2022 ambulatory Oumou Reji Other [employer] Other Start: 01-22-2022 Telephone encounter Oumou Reji [facility] Start: 01-11-2022 End: 01-11-2022 ambulatory PHYSICIAN NO FAMILY Facility:[facility] Start: 01-11-2022 End: 01-11-2022 ambulatory PHYSICIAN NO [facility] Work Phone: Start: 01-11-2022 End: 01-11-2022 Discharged Recurring PHYSICIAN NO [facility] - O/P Start: 01-10-2022 End: 01-10-2022 ambulatory Oumou Reji Other [employer] Other Start: 01-10-2022 Telephone encounter Oumou Reji [facility] Start: 01-02-2022 End: 01-02-2022 ambulatory Oumou Reji Other [employer] Other Start: 01-02-2022 Telephone encounter Oumou Reji [facility] Start: 01-01-2022 End: 01-01-2022 ambulatory Oumou Reji Other [employer] Other Start: 01-01-2022 Telephone encounter Oumou Reji [facility] Start: 12-21-2021 End: 12-22-[address] BLAYNE ISABEL . Facility:[facility] Start: 12-15-2021 Office outpatient vi sit 15 minutes Estephanie Lowry [facility] Start: 12-15-2021 Telephone encounter Oumou Reji [facility] Start: 12-15-2021 End: 12-15-2021 ambulatory Estephanie Lowry [facility] [employer] Other Start: 12-15-2021 End: 12-15-2021 Departed Referred ANIMAL PATHOLOGIST-C Estephanie Lowry Work Phone: [facility] [place] Start: 11-24-2021 End: 11-25-2021 ambulatory OUMOU REJI Facility:[facility] Start: 11-15-2021 End: 11-15-2021 ambulatory OUMOU REJI Facility:[facility] Start: 11-14-2021 End: 11-15-2021 ambulatory OUMOU REJI Facility:[facility] Start: 11-01-2021 End: 11-02-[address] BLAYNE ISABEL . Facility:[facility] Start: 10-31-2021 End: 11-01-[address] BLAYNE ISABEL . Facility:[facility] Start: 10-25-2021 End: 10-25-2021 ambulatory Oumou Reji Other [employer] Other Start: 10-25-2021 Office outpatient ne w 45 minutes Oumou Reji [facility] Start: 10-18-2021 End: 10-19-[address] BLAYNE ISABEL . Facility:[facility] Start: 10-17-2021 [facility]counter for other [facility] Start[facility] 10-17-2021 [facility]ced[facility] Start: 10-16-2021 End: 10-17-[address] BLAYNE ISABEL . Facility:[facility] Start: 10-16-2021 End: 10-17-2021 Encounter for other specified special examinations DR DOCTOR MILES Facility:[facility] Start: 10-13-2021 End: 10-21-2021 ambulatory PHYSICIAN BRADFORD Facility:[facility] Start: 10-10-2021 End: 10-11-2021 ambulatory [...] Evaluation and management of inpatient LEISA PERRY [facility] Start: 05-24-2021 End: 05-26-2021 ambulatory OCTAVIO Jj [facility] Start: 05-24-2021 End: 05-26-2021 Subsequent hospital visit by physician Octavio Mcclellan DO Work Phone: [id number] Ortho/Med Surg Comment on above: S/P laparoscopic sle may gastrectomy (Primary Dx) Start: 05-08-2021 End: 05-08-2021 Subsequent hospital visit by physician Twyla Pat 2 [facility] Pre-Admit Testing Comment on above: Canceled (Other) Start: 05-08-2021 End: 05-11-[address] [facility] Start: 05-08-2021 End: 05-13-2021 ambulatory OCTAVIO Jj [facility] Start: 05-08-2021 End: 05-10-2021 Patient encounter status Stv Xr [facility] Start: 05-08-2021 End: 05-10-2021 Subsequent hospital visit by physician Glory Mccracken Xr [facility] Comment on above: Pre-op chest exam Start: 05-08-2021 End: 05-12-2021 Subsequent hospital visit by physician Twyla Mccracken Rm 2 [facility] Pre-Admit Testing Start: 05-05-2020 End: 05-05-2020 Patient encounter procedure Blayne Bañuelosy -Pre-Surgical Testing Start: 02-04-2020 End: 02-04-2020 Subsequent hospital visit by physician Suzanne Prutet Work Phone: [facility] Echocardiography Comment on above: Arrived Start: 01-08-2020 End: 01-08-2020 Subsequent hospital visit by physician Alexandro Muhammad Work Phone: [facility] Radiology Start: 01-08-2020 End: 01-08-2020 Office outpatient new 30 minutes Alexandro Muhammad Work Phone: [facility] Orthopedics Comment on above: Fluid retention in l egs (Primary Dx) Start: 06-10-2019 End: 06-11-2019 Patient encounter procedure [facility] Facility:[facility] Start: 04-16-2019 End: 04-19-2019 Patient encounter procedure ARSENIO BHATTI [facility] Start: 04-16-2019 End: 04-18-2019 Subsequent hospital visit by physician Nelson Xr Room 4 [facility] Comment on above: Injury Start: 04-11-2019 End: 04-11-2019 Emergency department patient visit [facility] Start: 04-11-2019 End: 04-11-2019 Emergency department patient visit [facility] Work Phone: [facility] ED Comment on above: Acute bilateral low back pain with right-sided sciatica (Primary Dx); Traumatic buttock pain Procedures Date Procedure Procedure Detail Performing Clinician Start: 11-21-2022 Antibody screen BLAYNE ISABEL Comment on above: Order Comment: Speci men Type: BLOOD SPECIMENOrdering Facility: [facility] Address: [address] [place], [place] [address] Performed By: #### T [id number] ####CC MAIN BLOOD BANKCLIA [id number] [facility] [id number] [place], [place] [id number] [place] Start: 02-25-2022 Arthroplasty of knee Pa hiram MURILLO Start: 02-25-2022 Lumbar spinal fusion Pa zelalemvarghese MURILLO Start: 01-24-[address] SHERRI MURILLO . Comment on above: Performed By: #### P TT #### [facility] [address] [place] [address] Dr. Hugh Landis Start: 07-13-2021 Cystoscopic removal [...] Start: 05-08-2021 Assay of nicotine Ever Mcclellan [employer] Work Phone: Start: 05-08-2021 Basic metabolic pane [...] Cancer Screening Discussion Prostate Cancer Screening Discussion [facility] Start: 01-24-2027 Prostate specific antigen measurement Prostate Cancer Screening Discussion [facility] Start: 02-12-2025 Adult BMI Screening Adult BMI Screening [facility] Start: 02-12-2025 Tobacco Screening Tobacco Screening [facility] Start: 12-04-2024 Adult BMI Screening Adult BMI Screening [facility] Start: 12-04-2024 Tobacco Screening Tobacco Screening [facility] Start: 10-26-2024 Influenza vaccination Influenza Vaccine (Season Ended) [facility] Start: 08-14-2024 Tobacco Screening Tobacco Screening [facility] Start: 02-15-2024 Adult BMI Screening Adult BMI Screening [facility] Start: 02-15-2024 Tobacco Screening Tobacco Screening [facility] Start: 02-13-2024 End: 02-13-2024 Patient encounter procedure 02/13/2024 10:45 AM EST Office Visit [facility] [address] [place] [address] Ahsan Flynn, PA [address] [place] [address] [facility] Start: 12-12-2023 Creatinine measurement Serum Creatinine [facility] Start: 12-12-2023 Serum Creatinine Serum Creatinine [facility] Start: 10-27-2023 Covid-19 Vaccine () Covid-19 Vaccine ( season) [facility] Start: 10-27-2023 Influenza vaccination [facility] Start: 10-07-2023 End: 10-07-2023 Follow-up encounter Neurosurgery Comment on above: FOLLOW UP Start: 2023 RSV Vaccine (1 - 1-dose 60+ series) RSV Vaccine (1 - 1-dose 60+ series) [facility] Start: 2023 RSV Vaccine (1 - Risk 60-74 years 1-dose series) RSV Vaccine (1 - Risk 60-74 years 1-dose series) [facility] Start: 08-15-2023 End: 08-15-2023 Patient encounter procedure 08/15/2023 11:15 AM EDT Office Visit [facility] [address] [place] [phone] Ahsan Flynn PA [address] [place] [address] [facility] Start: 05-22-2023 Hemoglobin A1c measurement HbA1C [facility] Start: 05-22-2023 Hemoglobin A1c/Hemoglobin.total in Blood HbA1C [facility] Start: 02-25-2023 Behavioral Health Screening Behavioral Health Screening [facility] Start: 02-25-2023 Depression Assessment Depression Assessment [facility] Start: 01-20-2023 End: 01-19-2024 Radex spine lumbosacral 2/3 views XR LUMBAR LIMITED 2V AP/LAT Radiology Routine Lumbar adjacent segment disease with spondylolisthesis Expected: 01/20/2023, Expires: 01/19/2024 [facility] Work Phone: Comment on above: Expected: 01/20/2023, Expires: Start: 10-26-2022 Covid-19 Vaccine ( season) Covid-19 Vaccine ( season) [facility] Start: 10-26-2022 Influenza vaccination [facility] Start: 05-25-2022 Creatinine measurement Creatinine monitoring [facility] Start: 05-25-2022 Potassium monitoring Potassium monitoring [facility] Start: 05-08-2022 Creatinine measurement Creatinine monitoring [facility] Start: 05-08-2022 Potassium monitoring Potassium monitoring [facility] Start: 02-25-2022 DEPRESSION ASSESSMENT DEPRESSION ASSESSMENT [facility] Start: 01-03-2022 Hemoglobin A1c measurement A1C test (Diabetic or Prediabetic) [facility] Start: 01-03-2022 Lipid panel Lipid screen [facility] Start: 10-26-2021 Influenza vaccination Flu vaccine (Season Ended) [facility] Start: 06-06-2021 End: 06-06-2021 Patient encounter procedure 06/06/2021 Office Visit Oncology Spencer [place] MD [address] [place] [address] [facility] Start: 06-02-2021 End: 06-02-2021 Patient encounter procedure 06/02/2021 Office Visit Bariatrics Octavio Mcclellan DO [address] [place] [phone] [facility] Invasive Bariatric Surg Start: 05-24-2021 End: 05-24-2021 Admission to same day surgery center [facility] OR Comment on above: XI ROBOTIC LAPOROSCOPIC GASTRECTOMY SLEE VE, LIVER BIOPSY, EGD- GI SCHEDULED XI ROBOTIC LAPOROSCO PIC GASTRECTOMY SLEEVE, LIVER BIOPSY, EGD- GI SCHEDULED, POSSIBLE OPEN Start: 05-24-2021 End: 05-24-2021 Laps gstrc rstrictiv px longitudinal gastrectomy [facility] Start: 05-24-2021 Subsequent hospital visit by physician 05/24/2021 Hospital Encounter IP Unit Octavio Mcclellan DO [address] [place] [id number] [facility] Start: 05-19-2021 End: 05-19-2021 Patient encounter procedure 05/19/2021 Appointment Pre-Admission Testing [facility] PRE ADMIT Start: 05-18-2021 End: 05-18-2021 Patient encounter procedure 05/18/2021 Office Visit Bariatrics JerodOctavio, DO [address] [place] [phone] [facility] Invasive Bariatric Surg Start: 10-26-2020 Influenza vaccination Flu vaccine (#1) [facility] Start: 04-04-2020 End: 04-04-2020 Office Visit 04/04/2020 Office Visit Cardiovascular Medicine Suzanne Pruett MD [address] [place] [address] [phone] [facility] Start: 02-02-2020 End: 02-02-2020 Office Visit 02/02/2020 Office Visit Cardiovascular Medicine Suzanne Pruett MD [address] [place] [address] [phone] [facility] Start: 10-27-2019 Influenza vaccination INFLUENZA VACCINE (#1) [facility] Start: 10-26-2018 Influenza vaccination Flu vaccine (#1) [employer] Phone: Start: 09-10-2018 PROSTATE CANCER SCREENING DISCUSSION PROSTATE CANCER SCREENING DISCUSSION [facility] Start: 09-10-2013 Administration of varicella zoster vaccine Zoster (Shingles) Vaccine (1 of 2) [facility] Start: 09-10-2013 Colon cancer screen colonoscopy Colon cancer screen colonoscopy [employer] Phone: Start: 09-10-2013 Colonoscopy COLORECTAL CANCER SCREENING DISCUSSION [facility] Start: 09-10-2013 Prostate specific antigen measurement PROSTATE CANCER SCREENING DISCUSSION [facility] Start: 09-10-2013 Shingles Vaccine (1 of 2) Shingles Vaccine (1 of 2) [facility] Start: 09-10-2013 SHINGRIX VACCINE (1 of 2) SHINGRIX VACCINE (1 of 2) [facility] Start: 09-10-2013 Zoster vaccine hzv live for subcutaneous use ZOSTER (SHINGLES) VACCINE (1 of 2) [facility] Start: 09-10-2008 COLOGUARD (FIT-DNA) COLOGUARD (FIT-DNA) [facility] Start: 09-10-2008 Colonoscopy COLONOSCOPY [facility] Start: 09-10-2008 COLORECTAL CANCER SCREENING COLORECTAL CANCER SCREENING [facility] Start: 09-10-[address] COLONOGRAPHY [facility] Start: 09-10-2008 DIABETES SCREEN DIABETES SCREEN [facility] Start: 09-10-2008 Diabetes Screening Diabetes Screening [facility] Start: 09-10-2008 FECAL OCCULT BLOOD FECAL OCCULT BLOOD [facility] Start: 09-10-2008 Screening for malignant neoplasm of colon [facility] Start: 09-10-2008 SIGMOIDOSCOPY SIGMOIDOSCOPY [facility] Start: 2003 Diabetes screen Diabetes screen [facility] [employer] Phone: Start: 2003 Fasting lipid profile LIPID SCREENING [facility] [employer] Start: 2003 Lipid screen Lipid screen [facility] Phone: Start: 09-10-1998 Lipid 1996 panel - Serum or Plasma Lipid Screening [facility] Start: 09-10-1998 LIPID SCREEN LIPID SCREEN [facility] Start: 09-10-1982 DTaP,Tdap and Td Vaccines (1 - Tdap) DTaP,Tdap and Td Vaccines (1 - Tdap) [facility] Start: 09-10-1982 DTaP/Tdap/Td vaccine (1 - Tdap) DTaP/Tdap/Td vaccine (1 - Tdap) [facility] Start: 09-10-1982 Hepatitis B vaccine (1 of 3 - Risk 3-dose series) Hepatitis B vaccine (1 of 3 - Risk 3-dose series) [facility] Start: 09-10-1982 Pneumococcal Vaccine: 50+ (1 of 2 - PCV) Pneumococcal Vaccine: 50+ (1 of 2 - PCV) [facility] Start: 09-10-1982 Third diphtheria, tetanus and acellular pertussis (DTaP) vaccination TDAP (ADULT) [facility] Start: 09-10-1982 Urine microalbumin profile [facility] Start: 09-10-1981 Adult BMI Follow Up Plan Adult BMI Follow Up Plan [facility] Start: 09-10-1981 Annual PCP Team Chronic Disease Visit Annual PCP Team Chronic Disease Visit [facility] Start: 09-10-1981 BP Controlled (<130/80) BP Controlled (<130/80) [facility] Start: 09-10-1981 Depression Screening Depression Screening [facility] Start: 09-10-1981 Diabetic retinal exam Diabetic retinal exam [facility] Start: 09-10-1981 Hepatitis B surface antibody level LDL Cholesterol [facility] Start: 09-10-1981 HEPATITIS C SCREENING HEPATITIS C SCREENING [facility] Start: 09-10-1981 Hepatitis C screening Hepatitis C Screening [facility] Start: 09-10-1981 HIV SCREENING HIV SCREENING [facility] Start: 09-10-1981 HIV screening HIV Screening [facility] Start: 09-10-1981 Tetanus vaccination TETANUS [facility] Start: 09-10-1981 Urine screening for protein Diabetic microalbuminuria test [facility] Start: 09-10-1978 HIV screen HIV screen [facility] Phone: Start: 09-10-1978 HIV screening HIV screen [facility] Start: 09-10-1976 HIV screening HIV SCREENING DISCUSSION [employer] Start: 1975 Depression Screen Depression Screen [facility] Start: 1975 Depression Screening Depression Screening [facility] Start: 09-10-1974 DTaP/Tdap/Td vaccine (1 - Tdap) DTaP/Tdap/Td vaccine (1 - Tdap) [facility] [employer] Phone: Start: 09-10-1973 3 comp foot exam completed Diabetic Foot Exam [facility] Start: 09-10-1973 Diabetic foot examination Diabetic foot exam [facility] Start: 09-10-1973 Glaucoma screening Dilated Retinal Exam [facility] Start: 09-10-1973 Hepatitis B screening Urine Albumin:Creatinine Ratio [facility] Start: 09-10-1973 Hepatitis C antibody, confirmatory test Dilated Retinal Exam [facility] Start: 09-10-1969 Pneumococcal 0-64 years Vaccine (1 of 2 - PPSV23) Pneumococcal 0-64 years Vaccine (1 of 2 - PPSV23) [facility] Start: 09-10-1969 Pneumococcal vaccination [facility] Start: 09-10-1968 COVID-19 Vaccine (1) COVID-19 Vaccine (1) [facility] Start: 03-13-1964 COVID-19 VACCINE (#1) COVID-19 VACCINE (#1) [facility] Start: 1963 Hepatitis C antibody, confirmatory test HEPATITIS C VIRUS SCREENING [employer] Start: 1963 Hepatitis C screen Hepatitis C screen [employer] Phone: Start: 1963 Hepatitis C screening Hepatitis C screen [facility] Start: 1963 Potassium [Moles/Vol] POTASSIUM [employer] [facility] Bacteria identified in Urine by Culture [facility] Chlamydia trachomati s DNA [Presence] in Unspecified specimen by MUKUL with probe detection [facility] Work Phone: Continuous pulse oximetry Pulse oximetry, continuous Respiratory Care Routine Every 4hr until discontinued starting 05/24/2021 [employer] Phone: Comment on above: Every 4hr until discontinued starting CT LUMBAR SPINE WO CONTRAST CT LUMBAR SPINE WO CONTRAST Imaging STAT 04/11/2019 1:43 PM EST [employer] Phone: Neisseria gonorrhoea e DNA [Presence] in Unspecified specimen by MUKUL with probe detection [facility] Work Phone: Oxygen therapy [[facility] Data Set] Initiate Oxygen Therapy Protocol Respiratory Care Routine As Needed until discontinued starting 05/24/2021 [employer] Phone: Comment on above: As Needed until discontinued starting Radiography for bone length studies XR BONE LENGTH STUDY Imaging Routine Hx of total knee arthroplasty, right 01/08/2020 1:37 PM EST [employer] Renal function 2000 panel - Serum or Plasma [facility] Spirometry panel Incentive silverio metry Respiratory Care Routine Every 2hr while awake until discontinued starting 05/24/2021 [employer] Phone: Comment on above: Every 2hr while awake until discontinued starting 05/24/2021 Surgical Pathology Surgical Path ology Lab Routine Release Upon Ordering for 1 Occurrences starting 05/24/2021 [employer] Phone: Comment on above: Release Upon Ordering for 1 Occurrences starting 05/24/2021 Trichomonas vaginali s DNA [Presence] in Unspecified specimen by MUKUL with probe detection [facility] Work Phone: X-ray of right knee XR KNEE RIGH T 3 VIEWS Imaging Routine Hx of total knee arthroplasty, right 01/08/2020 1:37 PM [facility] End: 06-06-2024 XR Lumbar spine AP and Lateral XR LUMBAR LIMITED 2V AP/LAT Radiology Routine Radiculopathy, lumbar region 1 Occurrences starting 05/08/2023 until 06/06/2024 [facility] Work Phone: Comment on above: 1 Occurrences starting 05/08/2023 until 06/06/2024 [facility] Immunizations Immunization Date Immunization Notes Care Provider Jazmin mariscal 05-08-2023 influenza virus vacc ine, unspecified formulation Thomas Mathew MD Work Phone: [facility] Payers Date Payer Category Payer Self-pay [id number] 2019 Private Health Insurance xxx [id number] [id number] 2019 Worker's Compensation 2019 Government (not [facility] care or Medicaid) [facility] [address] [id number]. [id number] 2019 Unknown HEALTH MANAGEMEN T SOLUTIONS HEALTH MGMT SOLUTIONS [facility] xxxxxxxx 2019-Present [phone] [place] [address] xxxxxxxx [id number]. 2.7.3.485164.315 2019 Unknown [id number] 2019 Unknown [id number] 2019 Unknown HEALTH MANAGEMEN T SOLUTIONS HEALTH MGMT SOLUTIONS [facility] xxxxx 2019-Present [phone] [place] [address] xxxxx 1.2.840.904410.1.13.239. 2.7.3.479020.315 2019 Unknown [id number]. 1.13.159. 2.7.3.736111.315 2019 Worker's Comp Other Managed Care [facility] 1.2.840.477385.1.13.424. 2.7.9.604851.306.315 2019 Unknown [id number] 2014 Private Health Insurance [id number] 2014 Private Health Insurance BRENTON Carlos KATI xxxxxxxxxx 2014-Present [phone] [address] [place] [address] xxxxxxxxxx 1.2.840.421154.1.13.239. 2.7.3.895872.315 2013 Private Health Insurance 1965 Unknown [id number] 2.16.840.1.269394.3.579. 2.176 1963 Unknown [id number] 2.16.840.1.428684.3.579. 2.176 1963 Unknown [id number] 2.16.840.1.509823.3.579. 2.176 1963 Unknown [id number] 2.16.840.1.688823.3.579. 2.196 1963 Unknown [id number] 2.16.840.1.116077.3.579. 2.175 1963 Unknown [id number] 2.16.840.1.087948.3.579. 2.647 1963 Unknown [id number] 2.16.840.1.221989.3.579. 2.593 1963 Unknown [id number] 2.16.840.1.936965.3.579. 2.593 1963 Unknown [id number] 2.16.840.1.783315.3.579. 2.593 1963 Unknown [id number] 2.16.840.1.705141.3.579. 2.593 1963 Unknown [id number] 2.16.840.1.429592.3.579. 2.593 1963 Unknown [id number] 2.16.840.1.765982.3.579. 2.593 1963 Unknown [id number] 2.16.840.1.304213.3.579. 2.593 1963 Unknown [id number] 2.16.840.1.742657.3.579. 2.593 1963 Unknown [id number] 2.16.840.1.237441.3.579. 2.593 1963 Unknown [id number] 2.16.840.1.471864.3.579. 2.593 1963 Unknown [id number] 2.16.840.1.561391.3.579. 2.593 1963 Unknown [id number] 2.16.840.1.803913.3.579. 2.59 1963 Unknown [id number] 2.16.840.1.911560.3.579. 2.59 1963 Unknown [id number] 2.16840.1.685481.3.579. 2.59 1963 Unknown [id number] 2.16840.1.431339.3.579. 2.59 1963 Unknown [id number] 2.840.1.021261.3.579. 259 1963 Unknown [id number] 2.840.1.115657.3.579. 259 1963 Unknown [id number] 2.840.1.693724.3.579. 259 1963 Unknown [id number] 2.840.1.221747.3.579. 2.59 1963 Unknown [id number] 2.840.1.893178.3.579. 259 1963 Unknown [id number] 2.840.1.445630.3.579. 2.59 1963 Unknown [id number] 2.840.1.338996.3.579. 2.59 1963 Unknown [id number] 2.840.1.238722.3.579. 2.59 1963 Unknown [id number] 2.840.1.317494.3.579. 2.1286 1963 Unknown [id number] 2.16840.1.200860.3.579. 2.128 1963 Unknown [id number] 2.840.1.524088.3.579. 2.1286 1963 Unknown [id number] 2.16.840.1.882301.3.579. 2.727 1963 Unknown [id number] 2.16.840.1.415811.3.579. 2.727 1963 Unknown [id number] 2.16.840.1.658260.3.579. 2.727 1963 Unknown [id number] 2.16.840.1.645984.3.579. 2.727 1959 Unknown [id number] 1.2.840.397105.1.13.239. 2.7.3.761292.315 1959 Unknown [id number] Self-pay Self Pay [facility]/Pain Mgmt [id number] Unknown [id number] 2.16.840.1.604994.3.579. 2.531 Unknown [id number] 2.16.840.1.126556.3.579. 2.531 Unknown [id number] 2.16.840.1.110068.19 Social History Date Type Detail Facility Start: 04-11-2019 End: 08-07-2024 Tobacco smoking status GAIS Never smoker [facility] Start: 04-11-2019 End: 05-25-2021 Alcohol intake Lifetime non-drinker (finding) [employer] Phone: Start: 04-11-2019 End: 01-08-2020 History SDOH Alcohol Frequency 1 [employer] Phone: Start: 1965 Sex Assigned At Not on file M [employer] Phone: Start: 11-26-2013 End: 01-08-2020 Tobacco use and exposure Never used [employer] Start: 1965 Sex Assigned At Male [facility] Start: 04-08-2021 End: 05-24-2021 Exposure to SARS-CoV-2 (event) Not sure [employer] Phone: Start: 11-05-2022 End: 03-25-2023 Sex Assigned At [facility] Start: 01-26-2014 End: 03-25-2023 Alcohol intake Current non-drinker of alcohol (finding) [facility] Tobacco smoking status Never [facility] Start: 11-05-2022 End: 03-25-2023 [facility] Start: 12-05-2023 End: 02-13-2024 Alcoholic beverage intake [facility]-drinker (finding[facility] Start: 06-08-2009 End: 09-30-2014 Sex Male (finding) [facility] Sexual Orientation [facility] Medical Equipment Procedure Code Equipment Code Equipment Origin al Text Equipment Identifier Dates CYSTOSCOPY W/ HO MIUM LASER Octavio ARAIZA MD 03/28/20 Unknown Abdomen {[id number] [id number] Start: 03-28-2020 Screw Darby 3 Alicia nium Set Mer[facility] - [id number] Start: 12-07-2022 Screw Darby 3 Serr eladio 6.5mm 50mm Bone Polyaxial Nonsterile Spine - [id number] Start: 12-07-2022 Vitoss Ba2x Bioactive Bone Graft Substitute 5.0cub Cm [id number] Start: 12-07-2022 Cage Tritanium 6 d [id number] Spinal Sterile Latex Free Lumbar Posterior - [id number] Start: 12-07-2022 Cage Tritanium 6 d [id number] Spinal Sterile Latex Free Lumbar Posterior - [id number] Start: 12-07-2022 Screw Darby 3 Serr eladio 6.5mm 45mm Bone Polyaxial Nonsterile Spine - [id number] Start: 12-07-2022 Goals Date Patient Goal Desired Activity /State Functional Status Date Assessment Result Facility 02-04-2023 Functional Status N/A [facility] 12-11-2022 Are you deaf, or do you have serious difficulty hearing No 12/11/2022 12:52 PM EDT Livia Calix RN No [facility] 12-11-2022 Are you blind, or do you have serious difficulty seeing, even when wearing glasses No 12/11/2022 12:52 PM EDT Livia Calix RN No [facility] 12-11-2022 Do you have serious difficulty walking or climbing stairs No 12/11/2022 12:52 PM EDT Livia Calix RN No [facility] 12-11-2022 Do you have difficul ty dressing or bathing No 12/11/2022 12:52 PM EDT Livia Calix RN No [facility] 12-11-2022 Because of a physica l, mental, or emotional condition, do you have difficulty doing errands alone such as visiting a physician's office or shopping No 12/11/2022 12:52 PM EDT Livia Calix RN [facility] 10-17-2022 Functional Status N/A General [facility] 03-19-2022 Functional Status N/A [facility] Mental Status Date Assessment Result Facility 12-11-2022 Because of a physica l, mental, or emotional condition, do you have serious difficulty concentrating, remembering, or making decisions No 12/11/2022 12:52 PM EDT Livia Calix RN [facility] Clinical Notes 05-03-2021 to 08-07-2024 Telephone Encounter [...] include: ?8 oz (237 mL) of milk, amvqcjo-uqmrpvglcplf-gstgz milk, and calcium-fortifiedfruit juice. Calcium-fortified means that [...] ?Spinach (cooked), rhubarb, beets, sweet potatoes, and Solomon Islander chard. ?Peanuts. ?Potato chips, tristanian fries, and baked potatoes with skin on. ?Nuts and nut products. ?Chocolate. If you regularly take a diuretic medicine, make sure to eat at least 1 or 2 servings of fruits or vegetables that are high in potassium each day. These include: ?Avocado. ?Banana. ?[place], prune, carrot, or tomato juice. ?Baked potato. [...] magnesium, fish oil, or vitamin B6. Take kozv-tag-hjokguo and prescription medicines only as told by [...] Casseroles. Pizza. Lasagna. Frozen meals. Potato chips. American fries. The items listed above may not [...] provider. Document Revised: 05/24/2022 Document Reviewed: 05/24/2022 Brain in Hand Patient Education 2023 [employer]. Follow Up Care 07/03/2024 14:31:41 With:LIDIA JACOBS, Cecelia Jj, URL Address: [address] [place], [place] [id number]- When: Unknown [facility] 08-07-2024 Note Patient Education Nephrology [...] ? 8 oz (237 mL) of milk, hhxbvip-dkscgexylpcg-yvcjn milk, and calcium-fortifiedfruit juice. Calcium-fortified means that [...] Spinach (cooked), rhubarb, beets, sweet potatoes, and Solomon Islander chard. ? Peanuts. ? Potato chips, tristanian fries, and baked potatoes with skin on. ? Nuts and nut products. ? Chocolate. ??? If you regularly take a diuretic medicine, make sure to eat at least 1 or 2 servings of fruits or vegetables that are high in potassium each day. These include: ? Avocado. ? Banana. ? [place], prune, carrot, or tomato juice. ? Baked [...] fish oil, or vitamin B6. ??? Take bajw-cxk-ugdkgrd and prescription medicines only as told by your health (more content not included)... [facility] 06-17-2024 Note Orthopedic [...] the right knee completed at [facility] which we do not have access [...] well perfused extremiti (more content not included)... [facility] 05-18-2024 Note Orthopedic Surgery Subjective Chief complaint: [...] the right knee completed at [facility] which we do not have access [...] the right k (more content not included)... [facility] 04-10-2024 Miscellaneous Notes Patient brought in [employer] [...] office visit notes can be submitted via [facility] Medical Records. documented in this encounter [facility] 04-10-2024 Telephone encounter Note Patient brought in [...] office visit notes can be submitted via [facility] Medical Records. [facility] 03-03-2024 Miscellaneous Notes Patient called today to follow up on his request for a written statement stating that provider feels that patient is totally disabled. Patient is informed that this office does not write such letters, however, office notes can be faxed to his erisa attorney's office if that would be beneficial. documented in this encounter [facility] 03-03-2024 Telephone encounter Note Patient called today to follow up on his request for a written statement stating that provider feels that patient is totally disabled. Patient is informed that this office does not write such letters, however, office notes can be faxed to his erisa attorney's office if that would be beneficial. [facility] 02-13-2024 History of Present illness Narrative [facility] [address] [place] [address] Patient: Sukhdeep Simental Sex: male : 1965 Age: 58 y.o. PCP: BLAYNE ISABEL MD 02/13/2024 Sukhdeep Simental is here for a(n) follow up for his [facility] work injury. 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 Chief Complaint Patient presents with Back Pain [facility] HPI: 12/07/2022 L2/3 fusion and revised L3/4, S1 at [facility] per patient. Bilateral SI joint injection on 04/17/2021 with 10% relief, pain is worse. 07/07/21 Bilateral L3/4 Medial branch block with no relief. right L 3, 4 nerve root injection on 09/01/2021 with no relef. Back Pain This is a chronic problem. The current episode started more than 1 year ago (surgery 10/16/18 discectomy and 07/10/2019 fusion in [place]). The problem occurs constantly. The problem is [...] disorder Claustrophobia Diabetes mellitus type 2, controlled [place] Fractures Hyperlipidemia Hypertension Joint pain Low back pain Major depression Obesity Osteoarthritis Pulmonary embolism [place] Seasonal allergies Sleep apnea does not use machine Sleep apnea Visual impairment glasses Past Surgical History: Procedure Laterality Date ANKLE SURGERY spurs removed INJECTION BLOCK EPIDURAL CAUDAL STEROID N/A 10/27/2021 Performed by Darren Lackey MD at [facility] INJECTION BLOCK NERVE MEDIAL BRANCH: bilat L 3/4 Bilateral 07/07/2021 Performed by Darren Lackey MD at [facility] INJECTION BLOCK SACROILIAC JOINT Bilateral 04/17/2021 Performed by Darren Lackey MD at [facility] SPINE TRANSFORAMINAL: right L 3,4 Nroot Right 09/01/2021 Performed by Darren Lackey MD at [facility] JOINT REPLACEMENT knees- right x2, left x1 KNEE SURGERY rt knee inf removed tka added rods LITHOTRIPSY LUMBAR DISCECTOMY L4-5 Left 10/16/2018 Performed by Suzanne Silverio DO at [facility] STOMACH SURGERY 04/2021 sleeve Allergies Allergen Reactions [...] Strain: Low Risk (03/28/2022) Received from [facility], [facility] Overall Financial Resource Strain (CARDIA) Difficulty of Paying Living Expenses: Not hard at all Food Insecurity: No Food Insecurity (12/05/2023) Hunger Screening Food Insecurity - Worry: Never True Food Insecurity - Inability: Never True Transportation Needs: Unknown (03/28/2022) Received from [facility], [facility] PRAPARE - Transportation Lack of Transportation (Medical): No Lack of Transportation (Non-Medical): Not on file Physical Activity: Inactive (12/01/2021) Received from [facility], [facility] Exercise Vital Sign Days of Exercise per Week: 0 days Minutes of Exercise per Session: 20 min Stress: No Stress Concern Present (12/01/2021) Received from [facility], [facility] [place] [employer] - Occupational Stress Questionnaire Feeling of Stress : Not at all Social Connections: Moderately Isolated (12/01/2021) Received from [facility], [facility] Social Connection and Isolation Panel [NHANES] Frequency of Communication with Friends and Family: More than three times a week Frequency of Social Gatherings with Friends and Family: Once a week Attends Religion Services: Never Active Member of Clubs or Organizations: No Attends Club or Organization Meetings: Never Marital Status: Interpersonal Safety: Unknown (04/18/2023) Received from [facility] [place] Safety & [place] Fear of Current or Ex-Partner: Not on file Emotionally Abused: Not on file Physically Abused: Not on file Sexually Abused: Not on file Physically or Sexually Abused: Not on file Housing Instability: Unknown (03/28/2022) Received from [facility], [facility] Housing Stability Vital Sign Unable to [...] Agustin 02/13/24 1603 documented in this encounter [facility] 12-05-2023 History of Present illness Narrative [facility] [address] [place] [address] Patient: Sukhdeep Simental Sex: male : 1965 Age: 58 y.o. PCP: BLAYNE ISABEL MD 12/05/2023 Sukhdeep Simental is here for a(n) follow up for his [facility] work injury. He reports he remains about the same as last visit. Chief Complaint Patient presents with Back Pain HPI: 12/07/2022 L2/3 fusion and revised L3/4, S1 at [facility] per patient. Bilateral SI joint injection on 04/17/2021 with 10% relief, pain is worse. 07/07/21 Bilateral L3/4 Medial branch block with no relief. right L 3, 4 nerve root injection on 09/01/2021 with no relef. Back Pain This is a chronic problem. The current episode started more than 1 year ago (surgery 10/16/18 discectomy and 07/10/2019 fusion in [place]). The problem occurs constantly. The problem is [...] disorder Claustrophobia Diabetes mellitus type 2, controlled ([facility]) Fractures Hyperlipidemia Hypertension Joint pain Low back pain Major depression Obesity Osteoarthritis Pulmonary embolism ([facility]) Seasonal allergies Sleep apnea does not use machine Sleep apnea Visual impairment glasses Past Surgical History: Procedure Laterality Date ANKLE SURGERY spurs removed INJECTION BLOCK EPIDURAL CAUDAL STEROID N/A 10/27/2021 Performed by Darren Lackey MD at [facility] INJECTION BLOCK NERVE MEDIAL BRANCH: bilat L 3/4 Bilateral 07/07/2021 Performed by Darren Lackey MD at [facility] INJECTION BLOCK SACROILIAC JOINT Bilateral 04/17/2021 Performed by Darren Lackey MD at [facility] INJECTION SPINE TRANSFORAMINAL: right L 3,4 Nroot Right 09/01/2021 Performed by Darren Lackey MD at [facility] JOINT REPLACEMENT knees- right x2, left x1 KNEE SURGERY rt knee inf removed tka added rods LITHOTRIPSY LUMBAR DISCECTOMY L4-5 Left 10/16/2018 Performed by Suzanne Silverio DO at [facility] STOMACH SURGERY 04/2021 sleeve Allergies Allergen Reactions [...] Strain: Low Risk (03/28/2022) Received from [facility], [facility] Overall Financial Resource Strain (CARDIA) Difficulty of Paying Living Expenses: Not hard at all Food Insecurity: No Food Insecurity (12/05/2023) Hunger Screening Food Insecurity - Worry: Never True Food Insecurity - Inability: Never True Transportation Needs: Unknown (03/28/2022) Received from [facility], [facility] PRAPARE - Transportation Lack of Transportation (Medical): No Lack of Transportation (Non-Medical): Not on file Physical Activity: Inactive (12/01/2021) Received from [facility], [facility] Exercise Vital Sign Days of Exercise per Week: 0 days Minutes of Exercise per Session: 20 min Stress: No Stress Concern Present (12/01/2021) Received from [facility], [facility] [place] [employer] - Occupational Stress Questionnaire Feeling of Stress : Not at all Social Connections: Moderately Isolated (12/01/2021) Received from [facility], [facility] Social Connection and Isolation Panel [NHANES] Frequency of Communication with Friends and Family: More than three times a week Frequency of Social Gatherings with Friends and Family: Once a week Attends Religion Services: Never Active Member of Clubs or Organizations: No Attends Club or Organization Meetings: Never Marital Status: Interpersonal Safety: Unknown (04/18/2023) Received from [facility] Safety & Environment Fear of Current or Ex-Partner: Not on file Emotionally Abused: Not on file Physically Abused: Not on file Sexually Abused: Not on file Physically or Sexually Abused: Not on file Housing Instability: Unknown (03/28/2022) Received from [facility], [facility] Housing Stability Vital Sign Unable to Pay for Housing in the Last Year: Not on file Number of Places Lived in the Last Year: Not on file In the last 12 months, was there a time when you did not have a steady place to sleep or slept in a penitentiary (including now)?: No Review of Systems Constitutional: [...] Agustin 12/12/23 0942 documented in this encounter [facility] 10-07-2023 Telephone encounter Note Pt phoned to ensure todays appt was via phone as noted in appt. Pt unable to manage computer. [facility] 10-07-2023 Miscellaneous Notes Pt phoned to ensure todays appt was via phone as noted in appt. Pt unable to manage computer. documented in this encounter [facility] 10-04-2023 Telephone encounter Note [place] report XR Lumbar Spine 2-3v scanned to Epic [facility] 10-04-2023 Miscellaneous Notes [place] report XR Lumbar Spine 2-3v scanned to Epic documented in this encounter [facility] 08-15-2023 History of Present illness Narrative [facility] [address] [place] [address] Patient: Sukhdeep Simental Sex: male : 1965 Age: 57 y.o. PCP: BLAYNE ISABEL MD 08/15/2023 Sukhdeep Simental is here for a(n) follow up for his [facility] work injury. He reports he has pain higher than before surgery. Chief Complaint Patient presents with Back Pain HPI: 12/07/2022 L2/3 fusion and revised L3/4, S1 at [facility] per patient. Bilateral SI joint injection on 04/17/2021 with 10% relief, pain is worse. 07/07/21 Bilateral L3/4 Medial branch block with no relief. right L 3, 4 nerve root injection on 09/01/2021 with no relef. Back Pain This is a chronic problem. The current episode started more than 1 year ago (surgery 10/16/18 discectomy and 07/10/2019 fusion in [place]). The problem occurs constantly. The problem has [...] disorder Claustrophobia Diabetes mellitus type 2, controlled ([facility]) Fractures Hyperlipidemia Hypertension Joint pain Low back pain Major depression Obesity Osteoarthritis Pulmonary embolism ([facility]) Seasonal allergies Sleep apnea does not use machine Sleep apnea Visual impairment glasses Past Surgical History: Procedure Laterality Date ANKLE SURGERY spurs removed INJECTION BLOCK EPIDURAL CAUDAL STEROID N/A 10/27/2021 Performed by Darren Lackey MD at [facility] INJECTION BLOCK NERVE MEDIAL BRANCH: bilat L 3/4 Bilateral 07/07/2021 Performed by Darren Lackey MD at [facility] INJECTION BLOCK SACROILIAC JOINT Bilateral 04/17/2021 Performed by Darren Lackey MD at [facility] SPINE TRANSFORAMINAL: right L 3,4 Nroot Right 09/01/2021 Performed by Darren Lackey MD at [facility] JOINT REPLACEMENT knees- right x2, left x1 KNEE SURGERY rt knee inf removed tka added rods LITHOTRIPSY LUMBAR DISCECTOMY L4-5 Left 10/16/2018 Performed by Suzanne Silverio DO at [facility] STOMACH SURGERY 04/2021 sleeve Allergies Allergen Reactions [...] Low Risk (03/28/2022) Received from [facility], [facility] Overall Financial Resource Strain (CARDIA) Difficulty of Paying Living Expenses: Not hard at all Food Insecurity: No Food Insecurity (08/15/2023) Hunger Screening Food Insecurity - Worry: Never True Food Insecurity - Inability: Never True Transportation Needs: Unknown (03/28/2022) Received from [facility], [facility] PRAPARE - Transportation Lack of Transportation (Medical): No Lack of Transportation (Non-Medical): Not on file Physical Activity: Inactive (12/01/2021) Received from [facility], [facility] Exercise Vital Sign Days of Exercise per Week: 0 days Minutes of Exercise per Session: 20 min Stress: No Stress Concern Present (12/01/2021) Received from [facility], [facility] [place] [employer] - Occupational Stress Questionnaire Feeling of Stress : Not at all Social Connections: Moderately Isolated (12/01/2021) Received from [facility], [facility] Social Connection and Isolation Panel [NHANES] Frequency of Communication with Friends and Family: More than three times a week Frequency of Social Gatherings with Friends and Family: Once a week Attends Religion Services: Never Active Member of Clubs or Organizations: No Attends Club or Organization Meetings: Never Marital Status: Interpersonal Safety: Unknown (04/18/2023) Received from [facility] [place] Safety & [place] Fear of Current or Ex-Partner: Not on file Emotionally Abused: Not on file Physically Abused: Not on file Sexually Abused: Not on file Physically or Sexually Abused: Not on file Housing Instability: Unknown (03/28/2022) Received from [facility], [facility] Housing Stability Vital Sign Unable to Pay for Housing in the Last Year: Not on file Number of Places Lived in the Last Year: Not on file In the last 12 months, was there a time when you did not have a steady place to sleep or slept in a penitentiary (including now)?: No Review of Systems Constitutional: [...] Agustin 08/15/23 1311 documented in this encounter [facility] 07-30-2023 Telephone encounter Note Called Sukhdeep, no answer, left VM [facility] Work Phone: 07-30-2023 Miscellaneous Notes Called Sukhdeep, no answer, left VM Have sent XR Lumbar order to [place] fax # [phone] as requested from patient. Pt phoned regarding upcoming visit 10/06 [employer] [facility] appt. Pt unable to manage virtual visit asking for telephone visit. Pt asking how far in advance to do X-Ray. Pt will have X-Ray done locally at [place]. Please call and advise Pt phone # [phone] documented in this encounter [facility] 07-30-2023 Telephone encounter Note Have sent XR Lumbar order to [place] fax # [phone] as requested from patient. [facility] 07-30-2023 Telephone encounter Note Pt phoned regarding upcoming visit 10/06 [employer] appt. Pt unable to manage virtual visit asking for telephone visit. Pt asking how far in advance to do X-Ray. Pt will have X-Ray done locally at [place]. Please call and advise Pt phone # [phone] [facility] 07-26-2023 Telephone encounter Note Office note faxed. Faxed verification received. [facility] 07-26-2023 Miscellaneous Notes Office note faxed. Faxed verification received. Printed for review. Received request from [employer] needing more info, in epic for review. documented in this encounter [facility] 07-23-2023 Telephone encounter Note Printed for review. [facility] 07-23-2023 Telephone encounter Note Received request from [employer] needing more info, in [employer] for review. [facility] 05-08-2023 History of Present illness Narrative SPINE SURGERY FOLLOW UP This is a virtual visit using Audio Only Visit. It required patient-provider interaction for the medical decision making as documented below. I have communicated my name and active licensure. The patient's identity and physical location were verified at the time of this visit. Either the patient or their legal training representative has been informed of the risks [...] visit. Either the patient or their legal training representative has been informed of the risks [...] 4:00 PM PAGER: documented in this encounter [facility] 05-08-2023 Miscellaneous Notes A letter was received from the law office of Jasper Loredo. 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 The information was reviewed by Nadiya Flynn PA-C and he would not like to amend the [facility] claim to allow the above mentioned condition. Call placed to the office of Jasper Loredo to inform him of provider's decision. No answer at the time call was made. Message left. documented in this encounter [facility] 05-08-2023 Telephone encounter Note A letter was received from the law office of Jasper Loredo. 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 The information was reviewed by Nadiya Flynn PA-C and he would not like to amend the [facility] claim to allow the above mentioned condition. Call placed to the office of Jasper Loredo to inform him of provider's decision. No answer at the time call was made. Message left. [facility] 05-07-2023 Miscellaneous Notes Call received from Hannah, patient's therapeutic case manager. She called as patient's MEDCO-14 is expiring soon. Hannah is informed that patient called about this and an updated MEDCO-14 was completed and faxed on 05/03/2023. Hannah states she is his therapeutic case manager and would like information sent to her [...] will be 05/15/2023-11/14/2023. documented in this [facility] 05-07-2023 Telephone encounter Note Call received from Hannah, patient's therapeutic case manager. She called as patient's MEDCO-14 is expiring soon. Hannah is informed that patient called about this and an updated MEDCO-14 was completed and faxed on 05/03/2023. Hannah states she is his therapeutic case manager and would like information sent to her [...] new dates for restrictions will be 05/15/2023-11/14/2023. [facility] 04-18-2023 Miscellaneous Notes Signed form faxed to number requested. Faxed verification received. Printed for review and signature. Received PT Certification from [facility]. Scanned to chart for provider signature. documented in this encounter [facility] 04-16-2023 Miscellaneous Notes Received imaging disc by mail from [facility]. Disc contains CT Lumbar spine done on 04/03/23. Will place in nurse folder in [address]. documented in this encounter [facility] 04-09-2023 Miscellaneous Notes Called & spoke with Sukhdeep Asked him to obtain imaging disc & send to our office. Will require images to be uploaded to assess for bony fusion at previous surgical site and adjacent segment disease. Received CT Lumbar Spine Report from [facility], in epic to review. documented in this encounter [facility] 02-14-2023 History of Present illness Narrative [facility] [address] [place] [address] Patient: Sukhdeep Simental Sex: male : 1965 Age: 57 y.o. PCP: BLAYNE ISABEL MD 02/14/2023 Sukhdeep Simental is here for a 6 month follow up for his [facility] work injury. Chief Complaint Patient presents with Back Pain HPI: 12/07/2022 L2/3 fusion and revised L3/4, S1 at [facility] per patient. Bilateral SI joint injection on 04/17/2021 with 10% relief, pain is worse. 07/07/21 Bilateral L3/4 Medial branch block with no relief. right L 3, 4 nerve root injection on 09/01/2021 with no relef. Back Pain This is a chronic problem. The current episode started more than 1 year ago (surgery 10/16/18 discectomy and 07/10/2019 fusion in [place]). The problem occurs constantly. The problem has [...] disorder Claustrophobia Diabetes mellitus type 2, [place] Fractures Hyperlipidemia Hypertension Joint pain Low back pain Major depression Obesity Osteoarthritis Pulmonary embolism [place] Seasonal allergies Sleep apnea does not use machine Sleep apnea Visual impairment glasses Past Surgical History: Procedure Laterality Date ANKLE SURGERY spurs removed INJECTION BLOCK EPIDURAL CAUDAL STEROID N/A 10/27/2021 Performed by Darren Lackey MD at [facility] INJECTION BLOCK NERVE MEDIAL BRANCH: bilat L 3/4 Bilateral 07/07/2021 Performed by Darren Lackey MD at [facility] INJECTION BLOCK SACROILIAC JOINT Bilateral 04/17/2021 Performed by Darren Lackey MD at [facility] INJECTION SPINE TRANSFORAMINAL: right L 3,4 Nroot Right 09/01/2021 Performed by Darren Lackey MD at [facility] JOINT REPLACEMENT knees- right x2, left x1 KNEE SURGERY rt knee inf removed tka added rods LITHOTRIPSY LUMBAR DISCECTOMY L4-5 Left 10/16/2018 Performed by Suzanne Silverio DO at [facility] STOMACH SURGERY 04/2021 sleeve Allergies Allergen Reactions [...] CNA 02/14/23 1237 Sonal Rodriguez CNA 02/14/23 1258 SCARLET Agustin 02/21/23 1154 documented in this encounter [facility] 02-07-2023 Miscellaneous Notes C9 for physical therapy faxed to [employer]. Faxed verification received. documented in this encounter [facility] 02-07-2023 History of Present illness Narrative SPINE [...] which included preparing to see the patient, bkto-jy-yhbz patient care, completing clinical documentation, obtaining and/or reviewing separately obtained history, performing a medically appropriate examination, counseling and educating the patient/family/caregiver, and ordering medications, tests, or procedures. SIGNATURE: Riddhi Goss APRN.CNP PATIENT NAME: Sukhdeep Simental DATE: February 07, 2023 TIME: 2:39 PM PAGER: documented in this encounter [facility] 02-04-2023 Hospital Discharge instructions Patient Education 02/04/2023 [...] include: ?8 oz (237 mL) of milk, ysifyfr-yuixcnnxcphv-fhyky milk, and calcium-fortifiedfruit juice. Calcium-fortified means that [...] ?Spinach (cooked), rhubarb, beets, sweet potatoes, and Solomon Islander chard. ?Peanuts. ?Potato chips, tristanian fries, and baked potatoes with skin on. ?Nuts and nut products. ?Chocolate. If you regularly take a diuretic medicine, make sure to eat at least 1 or 2 servings of fruits or vegetables that are high in potassium each day. These include: ?Avocado. ?Banana. ?[place], prune, carrot, or tomato juice. ?Baked potato. [...] magnesium, fish oil, or vitamin B6. Take ghrg-pqb-rudbadw and prescription medicines only as told by [...] Casseroles. Pizza. Lasagna. Frozen meals. Potato chips. American fries. The items listed above may not [...] provider. Document Revised: 05/24/2022 Document Reviewed: 05/24/2022 [employer] Patient Education 2022 [employer]. Follow Up Care 07/27/2022 14:20:34 With:LIDIA JACOBS, Cecelia Jj, URL Address: [facility] [address] , [place] [address]- When:Within 1 Year(s) Comments:w/CT AP w/o Con [facility] 01-23-2023 Miscellaneous Notes Received fax from [employer] Scanned into [employer]. Also received a RTW from [employer]. Scanned into [employer] as well. documented in this encounter [facility] 12-21-2022 Miscellaneous Notes Patient called with complaints of [facility] not allowing him to apple picker the pain medication that was sent [...] with an update. documented in this encounter [facility] 12-20-2022 History of Present illness Narrative SPINE [...] which included preparing to see the patient, wisk-sp-tuwk patient care, completing clinical documentation, obtaining and/or reviewing separately obtained history, performing a medically appropriate examination, counseling and educating the patient/family/caregiver, and ordering medications, tests, or procedures. SIGNATURE: Singh Morgan PA-C PATIENT NAME: Sukhdeep Simental DATE: December 20, 2022 TIME: 2:58 PM PAGER: documented in this encounter [facility] 12-17-2022 Miscellaneous Notes Forms completed and signed by provider. Faxed to number provided and and Sukhdeep notified via voice mail, as requested. Scanned into [employer]. Form completed. Awaiting signature. Printed for review. Received FMLA form by fax from patient's . Scanned to patient's chart for review and completion. documented in this encounter [facility] 12-13-2022 Miscellaneous Notes Spoke with patient at [...] a kenya. Xi Schrader PA-C Patient at [phone] is requesting a call back. He had back surgery on 12-07. He states for the past 2 days his right ring and little finger has been numb. documented in this encounter [facility] 12-12-2022 Miscellaneous Notes Spoke with pharmacy and was informed that medication is approved. No prior authorization needed. Patient called stating pharmacy needs a prior authorization for oxycodone 15 mg. I called the pharmacy on 12/12/2022 at 9:40 AM. Insurance will not pay for the frequency of medication written. They will cover q12h. Prescription changed to oxycodone 15 mg 12h. [facility] [id number] [place] [id number] - [address] - [phone] Pharmacist at [facility] wanted to inform the office that this patient already takes Percocet 10-325 every 6 hours, picked it up 13 days ago. They tried running the Percocet but his insurance will not cover both. Please call them back with new instructions. documented in this encounter [facility] 12-11-2022 Note HNO ID: [id number] Author: Lulu Oviedo MD Service: General Internal [...] 10 mg tab( (more content not included)... [facility] 12-10-2022 Note HNO ID: [id number] Author: Lulu Oviedo MD Service: General Internal [...] 10% iv bolu (more content not included)... [facility] 12-09-2022 Note HNO ID: [id number] Author: Alyssa Tim APRN.WORKDAY CONSULTANT Service: Neurosurgery Author Type: Nurse Practitioner Type: [...] is currently not well controlled despite Dilaudid MEDICAL COORDINATOR PESTICIDE USE and Toradol. He denies new weakness, numbness, [...] mg ORAL q 8 H Alyssa Tim APRN.WORKDAY CONSULTANT 1,000 mg at 12/09/22 0559 aluminum-magnesium hydroxide-simethicone 200-200-20 mg/5 mL 30 mL 30 mL ORAL q 6 H PRN Archual, Alyssa, TELEPHONE RECORDER.WORKDAY CONSULTANT bisacodyl EC 10 mg tab(s) (DULCOLAX) 10 mg ORAL DAILY PRN Archual, Alyssa, TELEPHONE RECORDER.WORKDAY CONSULTANT dextrose 40 % 15 g 15 g ORAL PRN Archual, Alyssa, TELEPHONE RECORDER.WORKDAY CONSULTANT Or glucagon 1 mg injection 1 mg INTRAMUSCULAR PRN [employer]ual, Alyssa, TELEPHONE RECORDER.WORKDAY CONSULTANT Or dextrose 10% iv bolus 12.5 g INTRAVENOUS PRN [employer], Alyssa, TELEPHONE RECORDER.WORKDAY CONSULTANT docusate sodium 100 mg cap(s) (COLACE) 100 mg ORAL BID Thomas Mathew MD 100 mg at 12/09/22 0821 doxazosin 4 mg tab(s) (CARDURA) 4 mg ORAL DAILY Thomas Mathew MD 4 mg at 12/09/22 0821 fentaNYL MEDICAL COORDINATOR PESTICIDE USE 20 mcg/mL in NaCl 0.9% 100 mL (SUBLIMAZE) INTRAVENOUS CONTINUOUS Archual, Alyssa, TELEPHONE RECORDER.WORKDAY CONSULTANT ferrous sulfate 325 mg tab(s) 325 mg ORAL DAILY Archual, Alyssa, TELEPHONE RECORDER.WORKDAY CONSULTANT 325 mg at 12/09/22 0821 heparin 5,000 Units injection 5,000 Units SUBCUTANEOUS q 12 H Archual, Alyssa, TELEPHONE RECORDER.WORKDAY CONSULTANT 5,000 Units at 12/09/22 0821 hydrOXYzine HCl 25 mg tab(s) (ATARAX) 25 mg ORAL q 6 H PRN [employer]ual, Alyssa, TELEPHONE RECORDER.WORKDAY CONSULTANT insulin lispro injection (rapid acting) (HumaLOG) SUBCUTANEOUS w MEALS AND HS Archual, Alyssa, TELEPHONE RECORDER.WORKDAY CONSULTANT 1 Units at 12/07/22 1803 lactated ringers iv infusion 75 mL/hr INTRAVENOUS CONTINUOUS Thomas Mathew MD 75 mL/hr at 12/09/22 1018 75 mL/hr at 12/09/22 1018 methocarbamol 750 mg tab(s) (ROBAXIN) 750 mg ORAL QID Archual, Alyssa, TELEPHONE RECORDER.WORKDAY CONSULTANT NaCl 0.9% iv flush bag 20 mL INTRAVENOUS PRN Thomas Mathew MD naloxone 0.1 mg injection (NARCAN) 0.1 mg INTRAVENOUS q 2 MIN PRN Arch[employer], Alyssa, TELEPHONE RECORDER.WORKDAY CONSULTANT omeprazole 20 mg cap(s) (PriLOSEC) 20 mg [...] packet 17 g ORAL DAILY Archual, Alyssa, TELEPHONE RECORDER.WORKDAY CONSULTANT 17 g at 12/09/22 0821 simvastatin 10 mg tab(s) (ZOCOR) 10 mg ORAL AT BEDTIME Thomas Mathew MD 10 mg at 12/08/222019 tamsulosin 0.4 mg cap(s) (FLOMAX) 0.4 mg ORAL DAILY Thomas Mathew MD 0.4 mg at 12/09/22 08 traZODone 150 mg tab(s) (DESYREL) 150 mg ORAL AT BEDTIME Archual, Alyssa, TELEPHONE RECORDER.WORKDAY CONSULTANT 150 mg at 12/08/222019 valsartan 80 mg tab(s) (DIOVAN) 80 mg ORAL DAILY Archual, Alyssa, TELEPHONE RECORDER.WORKDAY CONSULTANT 80 mg at 12/09/22 08 ASSESSMENT AND [...] pain control, Pain management consulted, started Fentanyl MEDICAL COORDINATOR PESTICIDE USE today due to continued uncontrolled pain, Robaxin and Tylenol scheduled, no further Toradol due to CKD 3. -Check postop lumbar XR today -Medicine consult for post-operative medical management -Discharge planning, anticipate discharge home in 1-2 more days. Plan of care discussed with Dr. Mathew via phone. Medication and Non-Pharmacologic VTE Prophylaxis/Anticoagulants 10/25/21 1215 vte pharmacologic prophylaxis contraindicated (fl,oh) (more content not included)... [facility] 12-08-2022 Note HNO ID: [id number] Author: Alyssa Tim APRN.OLGA Service: Neurosurgery Author [...] on POD #2 -Post-operative pain control, Dilaudid MEDICAL COORDINATOR PESTICIDE USE discontinued. Continue Tylenol, Toradol IV, and Robaxin PRN. Start oxycodone every 3 hours PRN and Dilaudid IV PRN. -Check postop XR tomorrow. -Medicine consult for post-operative medical management -Discharge planning, anticipate discharge home in 1-2 more days. Plan of care discussed with Dr oHpper via phone. Medication and Non-Pharmacologic VTE Prophylaxis/Anticoagulants 10/25/21 1215 vte pharmacologic prophylaxis contraindicated (sc,wi) 10/25/21 1215 pneumatic compression stockings (sc,wi) 10/25/21 1215 activity - mobilize patient (sc,wi) VTE Prophylaxis: VTE prophylaxis appropriate SIGNATURE: Alyssa Tim APRN.CNP DATE: December 08, 2022 TIME: 1:50 PM [facility] 12-08-2022 Note HNO ID: [id number] Author: Note, Interface Service: ? Author Type: ? Type: Progress Notes Filed: 12/08/2022 3:59 AM Note Text: Epic Scheduled Downtime: 12/08/2022 1:00:00 AM to 12/08/2022 1:28:00 AM [facility] 12-07-2022 Note HNO ID: [id number] Author: Aaron Noriega AA Service: Anesthesiology Author Type: Dairy Scientist Type: Anesthesia Procedure Notes Filed: 12/07/2022 8:04 [...] December 07, 2022 TIME: 8:03 AM CSN: [id number] [facility] 12-06-2022 Evaluation note Encounter Date Diagnosis Assessment [...] has adequate iron stores. 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 12/07/2022 documented as of this encounter (statuses as of 12/18/2022) [address]27-2023 History of Past illness Narrative* Problem Noted Date Diagnosed Date Resolved Date Secondary hyperparathyroidism 11/21/2022 11/21/2022 11/21/2022 Corneal edema, unspecified 12/10/2013 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 12/07/2022 documented as of this encounter (statuses as of 12/21/2022) [address]27-2023 History of Past illness Narrative* Problem Noted Date Diagnosed Date Resolved Date Secondary hyperparathyroidism 11/21/2022 11/21/2022 11/21/2022 Corneal edema, unspecified 12/10/2013 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 12/07/2022 documented as of this encounter (statuses as of 12/21/2022) [address]27-2023 History of Past illness Narrative* Problem Noted Date Diagnosed Date Resolved Date Secondary hyperparathyroidism 11/21/2022 11/21/2022 11/21/2022 Corneal edema, unspecified 12/10/2013 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 12/07/2022 documented as of this encounter (statuses as of 01/24/2023) [address]-2023 History of Past illness Narrative* Problem Noted Date Diagnosed Date Resolved Date Secondary hyperparathyroidism 11/21/2022 11/21/2022 11/21/2022 Corneal edema, unspecified 12/10/2013 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 12/07/2022 documented as of this encounter (statuses as of 02/08/2023) [address]-2023 History of Past illness Narrative* Problem Noted Date Diagnosed Date Resolved Date Secondary hyperparathyroidism 11/21/2022 11/21/2022 11/21/2022 Corneal edema, unspecified 12/10/2013 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 12/07/2022 documented as of this encounter (statuses as of 02/09/2023) [facility] History of Past illness Narrative* Problem Noted Date Diagnosed Date Resolved Date Secondary hyperparathyroidism 11/21/2022 11/21/2022 11/21/2022 Corneal edema, unspecified 12/10/2013 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 12/07/2022 documented as of this encounter (statuses as of 04/09/2023) [facility] History of Past illness Narrative* Problem Noted Date Diagnosed Date Resolved Date Secondary hyperparathyroidism 11/21/2022 11/21/2022 11/21/2022 Corneal edema, unspecified 12/10/2013 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 12/07/2022 documented as of this encounter (statuses as of 04/18/2023) [facility] History of Past illness Narrative* Problem Noted Date Diagnosed Date Resolved Date Secondary hyperparathyroidism 11/21/2022 11/21/2022 11/21/2022 Corneal edema, unspecified 12/10/2013 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 Given both written and verbal instructions re : Skin prep, wound care, pain management and post op restrictions. Provided to patient: [facility] Surgery Guide, skin prep supplies, Spine Surgery Pre/post op education packet. Yes Reviewed with patient to report to the registration desk for surgery? Yes. Reviewed with the patient that a surgery manufacturing sales representative will call the working day [...] lab work : To be completed at [facility]. Questions answered. Patient verbalizes understanding via teach back. Additional comments : Informed to call with any questions or concerns. Juan Pablo Nova RN [facility] History of Present illness Narrative* Thomas Mathew [...] TIME: 2:20 PM PAGER: [facility] NoteHNO ID: [id number] Author: Sonya Wilhelm APRN.WORKDAY CONSULTANT Service: ? Author Type: Nurse Practitioner Type: Progress Notes Filed: 10/16/2022 4:03 PM Note Text: Per Triage: Sukhdeep Simental is a 57 year old male that requests evaluation of lumbar spine. Per review, they have symptoms of LBP Hip pain Leg pain (R) Numbness, Tingling Toes Trouble lifting leg (R) Prev surgery yes L4-S1 fusion in [facility] CMT: Injection Muscle relaxants, Zanaflex Studies [...] schedule with first available lumbar revision surgeon. [facility]08-22-2023 History of Present illness Narrative* Sonya Wilhelm APRN.WORKDAY CONSULTANT - 10/16/2022 3:51 PM EDT Per Triage: Sukhdeep Simental is a 57 year old male that requests evaluation of lumbar spine. Per review, they have symptoms of LBP Hip pain Leg pain (R) Numbness, Tingling Toes Trouble lifting leg (R) Prev surgery yes L4-S1 fusion in [facility] CMT: Injection Muscle relaxants, Zanaflex Studies [...] Simental Are you being referred by a Murphy for Spine Health Provider or Pain Management Provider at [facility]? No If answer is YES please [...] facility where the MRI/CT/myelogram was completed: [facility] Address: [facility] [place] [address] MRI/CT/myelogram viewable in Epic: No If not, please provide [phone] to fax in imaging reports for review. [...] injections and/or physical therapy was completed Injection [facility] Address: [address] [place] [address] Have you tried any other kinds of [...] of where the surgery was completed: [facility] Address: [address] [place] [address] Additional Comments [phone] (Home Phone) [facility] NoteHNO ID: [id number] Author: Adonis Lopez Service: ? Author Type: ? Type: Progress Notes Filed: 10/16/2022 4:03 PM Note Text: Patient name: Sukhdeep Simental Are you being referred by a Murphy for Spine Health Provider or Pain Management Provider at [facility]? No If answer is YES please [...] facility where the MRI/CT/myelogram was completed: [facility] Address: [address] [place] [address] MRI/CT/myelogram viewable in Epic: No If not, please provide [phone] to fax in imaging reports for review. [...] injections and/or physical therapy was completed Injection [facility] Address: [address] [place] [address] Have you tried any other kinds of [...] of where the surgery was completed: [facility] Address: [address] [place] [address] Additional Comments [phone] (Home Phone)[facility]04-27-2023 Evaluation note* Encounter Date Diagnosis Assessment Notes [...] will continue to monitor without any medications. [employer] [facility] 01-23-2023 Hospital Discharge instructions Patient Education [...] include: ?Spinach. ?Rhubarb. ?Beets. ?Potato chips and tristanian fries. ?Nuts. If you regularly take a diuretic medicine, make sure to eat at least 1 2 fruits or vegetables high in potassium each day. These include: ?Avocado. ?Banana. ?[place], prune, carrot, or tomato juice. ?Baked potato. [...] Casseroles. Pizza. Lasagna. Frozen meals. Potato chips. American fries. Summary You can reduce your risk [...] 06/08/2011 Document Revised: 06/03/2019 Document Reviewed: 01/22/2017 [employer] Patient Education 2020 [employer]. Follow Up Care 03/15/2022 09:49:40 With:LIDIA JACOBS, Cecelia Jj, URL Address: [facility] [address] [place] [address]- When: Unknown [facility] 01-16-2023 NoteIndication: Renal mass. Comparison: [...] Electronically authenticated by: CITLALI GIRON Date: 2022-03-12 18:03[facility]10-21-2022 Evaluation note* Encounter Date Diagnosis Assessment [...] be cultured for infection, gonorrhea, chlamydia, yeast. [employer] [facility] 08-31-2022 Evaluation note* Encounter Date Diagnosis [...] paraproteinemia due to the CKD and anemia. [employer] [facility] 04-01-2022 History of Present illness Narrative* [...] from the original note were not included. [employer] Progress Note Date: 05/26/2021 Patient name: Sukhdeep [...] Ok for d/c from cardiology standpoint. [employer] [phone] * Octavio Mcclellan, - 05/25/2021 5:42 PM [...] Foreman RN - 05/25/2021 8:32 AM EDT [employer] Documentation Note Admission Dx: S/P laparoscopic sleeve [...] on an annual basis Tona Foreman RN [employer] * Sonya Ramírez, DO - 05/25/2021 6:45 [...] Day of Surgery/Procedure As a patient at [facility] you can expect quality medical and nursing care that is centered on your individual needs. Our goal is to make your surgical experience as comfortableas possible . Directions to the Surgery Center [facility] is located at [address] [place] [address]. Please pull into the Emergency parking lot and stop at the padder cushion ojeda. We offer free padder cushion service for all our surgery patients, if you choose not to have padder cushion parking we have additional parking across the street.You will enter the facility under the blue canopy/walkway following the [facility] sign. Please stop at the family law legal assistant desk where you will be checked in by the staff. If you have any questions please call [phone]. Transportation after your procedure. You will need a friend or family member to drive you home after your procedure. Your class c truck driver must be18 years of age or [...] You may shave your face or neck. Lizemores your teeth but do not swallow water. [...] or the day of surgery, please call [phone], or [phone] documented in this [facility] Phone: 1(864) 517-343003-31-2022 Hospital Discharge instructions* Discharge Instr - KAMARI* Jenny Lentz RN - 05/25/2021 5:44 PM EDT PHYSICIAN SIGNATURE: * Additional Instructions* Jenny Lentz, RN - 05/26/2021 Discharge Instructions for Bariatric Surgery You had a Laparoscopic Sleeve Gastrectomy (72610) surgery to treat obesity. Recovery from this [...] scheduled appointment, please call the office at [phone]. Call Your Doctor If Any of the [...] sent through Care Everywhere. * Enoxaparin (Lovenox) (Australian) * metoprolol (oral/injection) (Australian) * acetaminophen and oxycodone (Australian) documented [facility] this [facility] Phone: 1(358) 256-872103-09-2022 Hospital Discharge instructions* Instructions* Etelvina Ledbetter APRN - WORKDAY CONSULTANT - 05/03/2021 Pre-operative Instructions Please arrive at [...] list you provided today, ACCORDING TO YOUR POURER OFF, PLEASE HOLD ELIQUIS 3 DAYS PRIOR TO [...] public transportation ALONE is not acceptable. -Your class c truck driver must be 18 years of age [...] Day of Surgery/Procedure As a patient at [facility] you can expect quality medical and nursing care that is centered on your individual needs. Our goal is to make your surgical experience as comfortableas possible . Directions to the Surgery Center [facility] is located at [address] [place] [address]. Please pull into the Emergency/Surgery Center parking lot and stop at the [employer] ojeda. We offer free padder cushion service for all our surgery patients, if you choose not to have padder cushion parking we have additional parking across the [...] pharmacy bottles in a zip lock bag. Lizemores your teeth but do not swallow water. [...] DAY OF your surgery, you may call [phone] documented in this [facility] Work Phone: evaluation + Plan note Future Appointments Appointment Date:07/16/2022 02:45:00 PM Scheduled Provider:Cecelia MURILLO MD Location:[facility] Appointment Type:URO Office Visit [facility] evaluation + Plan note Future Appointments Appointment Date:02/04/2023 09:15:00 AM Scheduled Provider:Cecelia MURLILO MD Location:[facility] Appointment Type:URO Office Visit General Surgery [place] Evaluation + Plan note Future Appointments Appointment Date:02/03/2024 10:30:00 AM Scheduled Provider:Cecelia MURILLO MD Location:[facility] Appointment Type:URO Office Visit Diagnostic Tests Pending * PSA Total 02/04/23 [facility] evaluation + Plan note Future Appointments Appointment Date:08/13/2025 10:45:00 AM Scheduled Provider:Cecelia MURILLO MD Location:[facility] Appointment Type:URO Office Visit Diagnostic Tests Pending * PSA Total 06/25/25 [facility] evalkenxeb note* Diagnosis Pre-op chest exam Pre-operative respiratory examination documented in this encounter [facility] Work Phone: evalltdlsm note* Diagnosis S/P laparoscopic sleeve gastrectomy- Primary documented in this encounter [facility] Phone: evaluation noteNo InformationNort [employer] Other evaluation noteNo assessment information available [facility] Work Phone: Evaluation note* Diagnosis Lumbar adjacent segment disease with spondylolisthesis- Primary Lumbar adjacent segment disease with spondylolisthesis [facility] [facility] [place] [facility]* Diagnosis Lumbar adjacent segment disease with spondylolisthesis- [facility] [facility] Diagnosis Lumbar adjacent segment disease with spondylolisthesis- Primary documented in this encounter [facility] note* Diagnosis Radiculopathy, lumbar region- Primary Thoracic or lumbosacral neuritis or radiculitis, unspecified [facility] this [facility] [facility]* Diagnosis Onset Date Resolution Status CKD (chronic kidney disease) stage 3, GFR 30-59 ml/min acute [id number] acute Hyperuricemia acute Microscopic hematuria acute Nephrolithiasis acute Secondary hyperparathyroidism acute Type 2 diabetes 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 acute [facility] Work Phone: [email or web address] note* Diagnosis Spinal stenosis, lumbar region, with neurogenic claudication- [facility] Diagnosis Spinal stenosis, lumbar region, with neurogenic claudication- Primary [facility] Diagnosis Spinal stenosis, lumbar region, with neurogenic claudication- Primary [facility] Narrative - Reported* Type Description Date [...] GASTRIC SLEEVE 04/2021 Hospitalization History SEE ABOVE [facility] Other [facility] general Narrative - Reported* Type Description Date [...] REPLACEMENT 04/16 22 Hospitalization History SEE ABOVE [facility] Hospital course Narrative No data available for this section [facility] Hospital Discharge instructions No data available for this section General Surgery [place] InstructionsNot on filedocumented in this encounter [facility] filedocumented in this encounter [facility] filedocumented in this encounter [facility] No data available for this section [facility] reason for referral (narrative)* Diagnostic Procedure Only (Routine) - Pending Review Specialty Diagnoses / Procedures Referred By Enoch luna Referred To Contact XR IMAGING Diagnoses Lumbar adjacent segment disease with spondylolisthesis Procedures XR LUMBAR LIMITED 2V AP/LAT RADEX SPINE LUMBOSACRAL 2/3 VIEWS Singh Morgan PA-C [address] [id number] Xr Imaging [place] [address] Referral ID Status Reason Start Date Expiration Date Visits Requested Visits Authorized [id number] Pending Review Auto-Generat ed Referral 3 01/19/2024 1 1 [facility] (narrative)* Diagnostic Procedure Only (Routine) - Pending Review Specialty Diagnoses / Procedures Referred By Enoch luna Referred To Contact XR IMAGING Diagnoses Radiculopathy, lumbar region Procedures XR LUMBAR LIMITED 2V AP/LAT RADEX SPINE LUMBOSACRAL 2/[place] [address] [place] [address] [place] [address] Referral ID Status Reason Start Date Expiration Date Visits Requested Visits Authorized [id number] Pending Review Auto-Generat ed Referral 05/08/2023 06/06/2024 1 1 [facility] for visit Narrative* Auth/Cert Specialty Diagnoses / Procedures Referred By Contac t Referred To Contact Diagnoses Morbid obesity (HCC) Type II diabetes circulatory disorder causing erectile dysfunction (HCC) Hypertension MORBID OBESITY, TYPE II DIABETES, HYPERTENSION Procedures SD LAP, JUAN RESTRICT PROC, LONGITUDINAL GASTRECTOMY XI ROBOTIC LAPOROSCOPIC GASTRECTOMY SLEEVE, LIVER BIOPSY, EGD- GI SCHEDULED Octavio Mcclellan DO [address] [facility] [address] [place] [address] [employer] [address] [place] [address] Referral ID Status Reason Start Date Expiration Date Visits Re quested Visits Authorized [id number] 1 1 [employer] Phone: Advance Directives No Advanced Directives Records FoundDocuments on File Type Date Recorded Patient Cad Draftsman Expl anation Advance Directives and Living Will Power of Edger Automatic Advance Directive Response Recorded Date/ Time Advance Directives No September 16 2:32pm Documents on File Type Date Recorded Patient Cad Draftsman Expl anation ACP-Advance Directive ACP-Power of Edger Automatic Documents on File Type Date Recorded Patient Cad Draftsman Expl anation ACP-Advance Directive ACP-Power of Edger Automatic Latest Code Status on File Code Status [...] retention in legs Alexandro Muhammad MD [address] [place] [address] Maite John MD [address] [place] [address] Scheduling Instructions . Specialty Diagnoses / Procedures Referred By Contac t Referred To Contact [facility] Diagnoses Lumbar adjacent segment disease with spondylolisthesis Procedures [facility]SULT TO [facility]) OFFICE/OUTPATIENT [facility] 60-[place] [address] [address] [id number] Referral ID Status Reason Start Date Expiration Date Visits Requested Visits Authorized [id number] Pending Review PCP Requested Referral 11/05/2022 11/05/2023 1 1 Specialty Diagnoses / Procedures Referred By Contac t Referred To Contact [facility] Diagnoses Lumbar adjacent segment disease with spondylolisthesis Procedures CONSULT TO PHYSICAL THERAPY PHYSICAL THERAPY EVALUATION HIGH COMPLEX 45 MINS Riddhi Goss, TELEPHONE RECORDER.WORKDAY CONSULTANT [address] [place] [address] [facility] [address] [place] [address] Referral ID Status Reason Start Date Expiration Date Visits Requested Visits Authorized [id number] Pending Review Auto-Generat ed Referral 3 02/07/2024 1 1 History of Present Illness * Alexandro Muhammad MD - 01/08/2020 1:30 PM EST HPI: Patient is here today to be evaluated for right knee pain. He is a pleasant 54 y.o. male. He is here today as a referral from Dr. Silveroi. Primary complaint is pain and discomfort. He [...] has been treated in the past by childcare administrator as well as his PCP. They contribute [...] file Gets together: Not on file Attends catholic service: Not on file Active member of [...] 01/08/2020 2:19 PM Patient: Sukhdeep Simental MR#: [id number] : 1965 Age: 54 y.o. 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 [...] []Chair,[]cane, []bracing Are you followed by a meat cutter apprentice? [] [x] Name: Are you followed by [...] kidney disease) stage 3, GFR 30-59 ml/min [id number] Hyperuricemia Microscopic hematuria Nephrolithiasis Secondary hyperparathyroidism Type 2 diabetes mellitus with diabetic chronic kidney disease Discharge Instructions * Attachments The following attachments cannot be sent through Care Everywhere. * Back Pain (Australian) documented in this encounter Additional Source Comments (unrecognized sect ion and content) No Status Records FoundNo Status Records FoundNo Status Records FoundNo Status Records FoundNo Status Records FoundNo Status Records FoundNo Status Records FoundNo Status Records FoundNo Status Records FoundNo Status Records FoundNo Status Records FoundNo Status Records Found INFORMATION SOURCE (unrecogn ized section and content) DATE CREATED AUTHOR 04/18/2019 [facility] DATE CREATED AUTHOR AUTHOR'S ORGANIZ ATION 06/10/2019 [facility] DATE CREATED AUTHOR AUTHOR'S ORGANIZ ATION 07/21/2021 [facility] DATE CREATED AUTHOR AUTHOR'S ORGANIZ ATION 10/22/2021 [facility] DATE CREATED AUTHOR AUTHOR'S ORGANIZ ATION 01/23/2022 [facility] DATE CREATED AUTHOR AUTHOR'S ORGANIZ ATION 08/04/2022 [facility] DATE CREATED AUTHOR AUTHOR'S ORGANIZ ATION 12/12/2022 [facility] DATE CREATED AUTHOR AUTHOR'S ORGANIZ ATION 07/27/2023 [facility] DATE CREATED AUTHOR AUTHOR'S ORGANIZ ATION 02/16/2024 [facility] DATE CREATED AUTHOR AUTHOR'S ORGANIZ ATION 06/19/2024 [facility] DATE CREATED AUTHOR AUTHOR'S ORGANIZ ATION 06/30/2024 [facility] DATE CREATED AUTHOR AUTHOR'S ORGANIZ ATION 08/10/2024 [facility] Reason for Visit (unrecogniz ed section and content) Status Reason Specialty Diagnoses / Procedures Referred By Contact Referred To Contact Pending Review Diagnoses Hx of total knee arthroplasty, right Procedures XR BONE LENGTH STUDY Alexandro Muhammad MD [address] [place] [address] Reason Comments Pain Status Reason Specialty Diagnoses / Procedures Referred By Contact Referred To Contact Closed Cardiovascular Medicine Diagnoses Localized edema Procedures ECHOCARDIOGRAM SD ECHO HEART XTHORACIC,COMPLETE W DOPPLER Suzanne Pruett MD [address] [place] [address] Horace Buc Echocardiograph y [address] [place] [address] Reason Comments Back Pain Lower back pain s/p slip on ice Buttocks Pain Rt buttocks pain Reason Comments New Patient Lumbar spine Specialty Diagnoses / Procedures Referred By Contac t Referred To Contact Neurosurgery / NEUROSURGERY Diagnoses lumbar spine [facility]Health records requested Procedures REFERRAL TO [facility]CIAL [facility]SEL[facility] NEW SPINE SURGICAL TRIAGE Jason Miller [address] [place] [address] [place] [address] [place] [address] Referral ID Status Reason Start Date Expiration Date V isits Requested Visits Authorized [id number] Outside PCP 11/05/2022 01/04/2023 99 99 Reason [...] POST OP NEUS/NRES Self Xi Schrader PA-C [address] [place] [id number] Referral ID Status Reason Start Date Expiration Date Visits Re quested Visits Authorized [id number] Closed 12/20/2022 02/24/2023 1 1 Reason Comments Received Outside Medical Records promedi ca Reason Comments Follow Up Specialty Diagnoses / Procedures Referred By Contac t Referred To Contact Neurosurgery / NEUROSURGERY Diagnoses Follow-up exam Follow Up Procedures OFFICE/OUTPATIENT ESTABLISHED MOD MDM 30-39 MIN EST NI PATIENT Self Xi Schrader PATed [id number] [place] [address] Referral ID Status Reason Start Date Expiration Date Visits Re quested Visits Authorized [id number] Closed 02/07/2023 02/07/2023 1 1 Reason Comments PT Certification Specialty Diagnoses / Procedures Referred By Contac t Referred To Contact Neurosurgery / NEUROSURGERY Diagnoses Lumbar adjacent segment disease with spondylolisthesis discuss imaging and BWC requirements Procedures PHYS/QHP TELEPHONE EVALUATION 5-10 MIN [place] [address] [place] [address] Referral ID Status Reason Start Date Expiration Date V isits Requested Visits Authorized [id number] Denied Patient Cleared - Admin/Chairm an/Director advise [...] November 07, 2023 End: November 07, 2023 Lead Trainer Relationship Specialty Start Date End Date Blayne Isabel MD [address] [id number] PCP - General Family Medicine 04/11/19 Lead Trainer Relationship Specialty Start Date End Date Blayne Isabel MD [address] [id number] PCP - General Family Medicine 04/11/19 Lead Trainer Relationship Specialty Start Date End Date Blayne Isabel MD [address] [id number] PCP - General Family Medicine 04/11/19 Lead Trainer Relationship Specialty Start Date End Date Blayne Isabel MD [address] [phone] PCP - General Family Medicine 04/11/19 Team Status: Inactive Member Role Status Dates STEPH Sarkar Attending Provider Active Team Status: Inactive Member Role Status Dates PHYSICIAN NO FAMILY Primary Care Provider Active Gianni James Nelson , DO Attending Provider Active Team Status: Inactive Member Role Status Dates Estephanie Lowry ANIMAL PATHOLOGIST-C Attending Provider Active PHYSICIAN NO FAMILY Primary Care Provider Active Lead Trainer Relationship Specialty Start Date End Date Blayne Isabel MD PCP - General Family Medicine 11/06/13 Lead Trainer Relationship Specialty Start Date End Date Blayne Isabel MD PCP - General Family Medicine 11/06/13 Lead Trainer Relationship Specialty Start Date End Date Blayne Isabel MD PCP - General Family Medicine 11/06/13 Lead Trainer Relationship Specialty Start Date End Date Blayne Isabel MD PCP - General Family Medicine 11/06/13 Lead Trainer Relationship Specialty Start Date End Date Blayne Isabel MD PCP - General Family Medicine 11/06/13 Lead Trainer Relationship Specialty Start Date End Date Blayne Isabel MD PCP - General Family Medicine 11/06/13 Lead Trainer Relationship Specialty Start Date End Date Blayne Isabel MD PCP - General Family Medicine 11/06/13 Lead Trainer Relationship Specialty Start Date End Date Blayne Isabel MD PCP - General Family Medicine 11/06/13 Lead Trainer Relationship Specialty Start Date End Date Blayne Isabel MD PCP - General Family Medicine 11/06/13 Lead Trainer Relationship Specialty Start Date End Date Blayne Isabel MD PCP - General Family Medicine 11/06/13 Lead Trainer Relationship Specialty Start Date End Date Blayne Isbael MD PCP - General Family Medicine 11/06/13 Lead Trainer Relationship Specialty Start Date End Date Blayne Isabel MD PCP - General Family Medicine 11/06/13 Lead Trainer Relationship Specialty Start Date End Date Blayne Isabel MD PCP - General [facility] Medicine 10/08/18 Lead Trainer Relationship Specialty Start Date End Date Blayne Isabel MD PCP - General [facility] Medicine 10/08/18 Lead Trainer Relationship Specialty Start Date End Date Blayne Isabel MD [address] [place] [address] PCP - [facility] 10/08/18 Lead Trainer Relationship Specialty Start Date End Date Blayne Isabel MD [address] [place] [address] PCP - General [facility] Medicine 10/08/18 Lead Trainer Relationship Specialty Start Date End Date Blayne Isabel MD PCP - General [facility] Medicine 10/08/18 Lead Trainer Relationship Specialty Start Date End Date Blayne [...] RN) 0839 (See Alternative - Provider: Milagros eRich, BRETT)2131 (See Alternative - Provider: Batsheva Carias, [...] Otoole RCP)1951 (Given - Provider: Yamilka Doyle HEEL PRICKER) 0729 (Not Given - Provider: Swapna De Anda HEEL PRICKER - Reason: Patient/family refused - Comment: pt [...] (day of surgery) 1043 (Given - Provider: Molyl Williamson RN) ondansetron (ZOFRAN) injection 4 mg [...] to back table, 1000 ml. for suction director of blood.) sodium chloride flush 0.9 % injection 5-40 [...] or prosecute any alcohol or drug abuse patient.[facility] the event this information is protected by the Federal Confidentiality of Alcohol and Drug Abuse Patient Records regulations: The Federal rules restrict any use of the information to criminally investigate or prosecute any alcohol or drug abuse patient.[facility] DaytonIn the event this information is protected by the Federal Confidentiality of Alcohol and Drug Abuse Patient Records regulations: The Federal rules restrict any use of the information to criminally investigate or prosecute any alcohol or drug abuse patient.[facility] DaytonIn the event this information is protected by the Federal Confidentiality of Alcohol and Drug Abuse Patient Records regulations: The Federal rules restrict any use of the information to criminally investigate or prosecute any alcohol or drug abuse patient.[facility] DaytonIn the event this information is protected by the Federal Confidentiality of Alcohol and Drug Abuse Patient Records regulations: The Federal rules restrict any use of the information to criminally investigate or prosecute any alcohol or drug abuse patient.[facility] DaytonIn the event this information is protected by the Federal Confidentiality of Alcohol and Drug Abuse Patient Records regulations: The Federal rules restrict any use of the information to criminally investigate or prosecute any alcohol or drug abuse patient.[facility] DaytonIn the event this information is protected by the Federal Confidentiality of Alcohol and Drug Abuse Patient Records regulations: The Federal rules restrict any use of the information to criminally investigate or prosecute any alcohol or drug abuse patient.[facility] DaytonIn the event this information is protected by the Federal Confidentiality of Alcohol and Drug Abuse Patient Records regulations: The Federal rules restrict any use of the information to criminally investigate or prosecute any alcohol or drug abuse patient.[facility] DaytonIn the event this information is protected by the Federal Confidentiality of Alcohol and Drug Abuse Patient Records regulations: The Federal rules restrict any use of the information to criminally investigate or prosecute any alcohol or drug abuse patient.[facility] DaytonIn the event this information is protected by the Federal Confidentiality of Alcohol and Drug Abuse Patient Records regulations: The Federal rules restrict any use of the information to criminally investigate or prosecute any alcohol or drug abuse patient.[facility] DaytonIn the event this information is protected by the Federal Confidentiality of Alcohol and Drug Abuse Patient Records regulations: The Federal rules restrict any use of the information to criminally investigate or prosecute any alcohol or drug abuse patient.[facility] DaytonIn the event this information is protected by the Federal Confidentiality of Alcohol and Drug Abuse Patient Records regulations: The Federal rules restrict any use of the information to criminally investigate or prosecute any alcohol or drug abuse patient.[facility] DaytonIn the event this information is protected by the Federal Confidentiality of Alcohol and Drug Abuse Patient Records regulations: The Federal rules restrict any use of the information to criminally investigate or prosecute any alcohol or drug abuse patient.[facility] DaytonIn the event this information is protected by the Federal Confidentiality of Alcohol and Drug Abuse Patient Records regulations: The Federal rules restrict any use of the information to criminally investigate or prosecute any alcohol or drug abuse patient.[facility] DaytonIn the event this information is protected by the Federal Confidentiality of Alcohol and Drug Abuse Patient Records regulations: The Federal rules restrict any use of the information to criminally investigate or prosecute any alcohol or drug abuse patient.[facility] DaytonIn the event this information is protected by the Federal Confidentiality of Alcohol and Drug Abuse Patient Records regulations: The Federal rules restrict any use of the information to criminally investigate or prosecute any alcohol or drug abuse patient.[facility] DaytonIn the event this information is protected by the Federal Confidentiality of Alcohol and Drug Abuse Patient Records regulations: The Federal rules restrict any use of the information to criminally investigate or prosecute any alcohol or drug abuse patient.[facility] DaytonIn the event this information is protected by the Federal Confidentiality of Alcohol and Drug Abuse Patient Records regulations: The Federal rules restrict any use of the information to criminally investigate or prosecute any alcohol or drug abuse patient.[facility] DaytonIn the event this information is protected by the Federal Confidentiality of Alcohol and Drug Abuse Patient Records regulations: The Federal rules restrict any use of the information to criminally investigate or prosecute any alcohol or drug abuse patient.[facility] FOR RECORDS PERTAINING TO PATIENTS WHO ARE [...] BE BASED ON THE PRIMARY CLINICAL RECORDS. [facility]. provides no warranty or guarantee of the accuracy or completeness of information in this document.
[2024-11-12] MEDS: KETOROLAC TROMETHAMINE 30 MG/ML VIAL IVP (15:24)
[2024-11-12] MEDS: HYDROMORPHONE HCL 1 MG/ML CARTRIDGE IV ×3 (15:24→21:54)
[2024-11-12] MEDS: 0.9 % SODIUM CHLORIDE 1,000 ML 1000 ML IV (15:24)
[2024-11-12 15:25] LABS: Hematocrit 41.1 % (42.0-54.0); Hemoglobin 14.5 g/dL (14.0-18.0); Immature Granulocytes Abs Auto 0.01 10^3/uL (0.00-0.03); Immature Granulocytes Pct Auto 0.2 % (0.0-0.5); Lymphocytes Absolute Auto 2.3 10^3/uL (1.2-3.8); Mean Corpuscular HGB Conc 35.3 g/dL (29.9-35.2); Mean Corpuscular Hemoglobin 32.2 pg (25.9-34.0); Mean Corpuscular Volume 91.1 fL (80.0-94.0); Platelet Count 201 10^3/uL (150-450); Red Blood Count 4.51 10^6/uL (4.70-6.10); White Blood Count 6.5 10^3/uL (4.0-11.0)
[2024-11-12 15:39] LABS: Anion Gap 12.7; Blood Urea Nitrogen 27.0 mg/dL (7.0-18.0); Calcium 8.4 mg/dL (8.5-10.1); Carbon Dioxide 27.1 mmol/L (21.0-32.0); Chloride 108 mmol/L (98-107); Estimated GFR (African America >60 (>=60 mL/min/1.73m^2); Estimated GFR (Non-African Ame 50 (>=60 mL/min/1.73m^2); Glucose 154 mg/dL (74-106); Potassium 3.8 mmol/L (3.5-5.1); Sodium 144 mmol/L (136-145)
--- NOTE | 2024-11-12 15:48 | ED.GENADUL1 ---
HPI HPI - General Adult General Chief complaint: Back Pain/Injury Stated complaint: BACK PAIN Time Seen by Provider: 11/12/24 14:54 Source: patient Mode of arrival: walk-in History of Present Illness HPI narrative: Patient is a 59-year-old male that presents to the emergency department with complaints of right sided flank pain. He was present in the emergency department yesterday with the same complaint and was found to have a large right-sided kidney stone 1 cm without hydronephrosis, nonobstructing. Patient was discharged with Toradol that he just picked up today and states this is not controlling his pain. He rates his pain is a 9.7 out of 10. He also took a Percocet 10 mg that he had at home for another condition that he states has not touched the pain. He called the urology office to make a follow-up and they state he cannot get in for a month. He was told by the doctor last night if his pain is not controlled to return. There is been no change. The pain is the same as last night. No urinary symptom changes. He denies hematuria, dysuria, frequency, retention. Related Data Home Medications ?Medication ?Instructions ?Recorded ?Confirmed bumetanide 1 mg tablet 1 mg PO DAILY 11/12/24 11/12/24 doxazosin 4 mg tablet 4 mg PO DAILY 11/12/24 11/12/24 doxepin 10 mg capsule 10 mg PO QPM 11/12/24 11/12/24 irbesartan 150 mg tablet 150 mg PO DAILY 11/12/24 11/12/24 omeprazole 20 mg capsule,delayed 20 mg PO BID 11/12/24 11/12/24 release oxycodone-acetaminophen 10 mg-325 1 tab PO Q6H PRN pain 11/12/24 11/12/24 mg tablet tamsulosin 0.4 mg capsule 0.4 mg PO DAILY 11/12/24 11/12/24 tizanidine 4 mg tablet 8 mg PO QPM 11/12/24 11/12/24 trazodone 150 mg tablet 150 mg PO QPM 11/12/24 11/12/24 Previous Rx's ?Medication ?Instructions ?Recorded ketorolac 10 mg tablet 10 mg PO Q6H PRN pain 4 days #14 11/11/24 tabs Allergies Allergy/AdvReac Type Severity Reaction Status Date / Time No Known Drug Allergies Allergy Verified 11/11/24 16:52 Opioid HPI Opioid Management Most Recent Opioid Data: Last Pain Scale 8 Today, 17:35 Last ED Pain Assessment 11/11/24, 20:43 Last MAR Pain Assessment 11/11/24, 20:16 PFSH PFSH Social History Little interest or pleasure in doing things: not at all Feeling down, depressed, or hopeless: not at all Exam Narrative Exam Narrative: General: No distress, age-appropriate, sitting on the ED cart comfortably. Skin: Warm, dry, no pallor. No rash. Head: Normocephalic, atraumatic. Neck: Supple, non-tender. Eye: Pupils are equal, round and EOMI. No scleral icterus. Ears, Nose, Mouth, and Throat: No nasal mucosal hypertrophy. Oral mucosa is moist, no posterior oropharynx erythema, uvula is mid-line Cardiovascular: Regular Rate and Rhythm without murmur, gallop or rub. Respiratory: No accessory muscle use or respiratory distress. Lungs are clear to auscultation, no wheezing, rales or rhonchi Chest Wall: no tenderness Back: No midline thoracic or lumbar vertebral tenderness. Musculoskeletal: Full ROM of all extremities, no calf or popliteal tenderness GI: Abdomen is soft, non-distended, non tender to palpation. No masses appreciated. No rebound, guarding, or rigidity noted. Right CVA tenderness with palpation. Neurological: A&O x4. No cranial nerve dysfunction observed. No truncal ataxia. Moves all extremities. Sensation intact. Psychiatric: Cooperative and interactive. Normal mood and affect. Constitutional Vital Signs, click to edit/add: Last Vital Signs Temp 98.6 F 11/12/24 14:47 Pulse 68 11/12/24 20:12 Resp 18 11/12/24 20:12 BP 149/94 H 11/12/24 20:12 Pulse Ox 95 11/12/24 20:12 O2 Del Method Room Air 11/12/24 14:47 Course Vital Signs Vital signs: Vital Signs Temperature 98.6 F 11/12/24 14:47 Pulse Rate 84 11/12/24 14:47 Respiratory Rate 18 11/12/24 14:47 Blood Pressure 152/91 H 11/12/24 14:47 Pulse Oximetry 96 11/12/24 14:47 Oxygen Delivery Method Room Air 11/12/24 14:47 Temperature 98.6 F 11/12/24 14:47 Pulse Rate 68 11/12/24 20:12 Respiratory Rate 18 11/12/24 20:12 Blood Pressure 149/94 H 11/12/24 20:12 Pulse Oximetry 95 11/12/24 20:12 Oxygen Delivery Method Room Air 11/12/24 14:47 Medical Decision Making MDM Narrative Medical decision making narrative: 59-year-old male return to the emergency department today after being seen last night for the same condition with complaints of uncontrolled right flank pain. He does have a 1 cm nonobstructing stone in the renal pelvis. Dr. Nina did talk with the urologist last night who recommended outpatient follow-up. Patient called today and is unable to be seen for a month. He was given Toradol at discharge and took his first dose today as well as a Percocet 10 he had at home and pain is still uncontrolled. On arrival he is sitting comfortably on the ED cart. Vitals are stable. IV was placed. 1 L normal saline ordered. 1 mg Dilaudid, Toradol IV 30 mg, and Zofran 4 mg ordered. CBC and BMP and UA ordered to confirm no change in condition. Patient questioned at first why labs were being drawn as the doctor last night told him this would not happen if he returned. Dr. Snowden did speak with him and he then agreed to labs. On reexamination, the Zofran and Dilaudid and Toradol did help but he states that his pain is starting to creep back up again. Currently at a 6 out of 10. He told me that he hopes to be admitted as he cannot handle this pain at home. CBC shows no leukocytosis. Stable hemoglobin. Creatinine increased to 1.4 from 1.2 yesterday. BUN also bumped up to 27 from 22 yesterday. UA again with large occult blood but no markers for infection. I discussed that we are going to rescan his abdomen/pelvis to evaluate for any change in the stone or kidney. His pain on reexamination did start to return and I did give him another 1 mg dose of Dilaudid. Once CT scan resulted I will speak with Urology about admission. The stone on repeat scan today had not changed, still in the right renal pelvis, no hydronephrosis. I did call and speak with Dr. Fernandez with Urology at 1845 and recommended stenting to help with patient's pain. I did discuss this with patient and he is amendable to this procedure. I spoke with Dr. Pelaez, Hospitalist, who will accept patient for pain control tonight and stenting with urology tomorrow. Patient is to be n.p.o. at midnight. Patient was admitted to [facility] for pain control tonight and procedure with Urology tomorrow. Differential Diagnosis Differential Diagnosis: Uncontrolled pain, obstructing kidney stone Lab Data Lab results reviewed: Yes I reviewed the patient's lab results Labs: Lab Results 11/12/24 11/12/24 Range/Units 15:10 15:15 WBC 6.5 (4.0-11.0) 10^3/uL RBC 4.51 L (4.70-6.10) 10^6/uL Hgb 14.5 (14.0-18.0) g/dL Hct 41.1 L (42.0-54.0) % MCV 91.1 (80.0-94.0) fL MCH 32.2 (25.9-34.0) pg MCHC 35.3 H (29.9-35.2) g/dL RDW 12.3 (11.0-15.0) % Plt Count 201 (150-450) 10^3/uL MPV 9.5 (9.5-13.5) fL Neut % (Auto) 48.6 (43.0-75.0) % Lymph % (Auto) 35.1 (20.5-60.0) % [place] % (Auto) 11.2 (1.7-12.0) % Eos % (Auto) 4.0 (0.9-7.0) % Baso % (Auto) 0.9 (0.2-2.0) % Neut # (Auto) 3.2 (1.4-6.5) 10^3/uL Lymph # (Auto) 2.3 (1.2-3.8) 10^3/uL [place] # (Auto) 0.7 (0.3-0.8) 10^3/uL Eos # (Auto) 0.3 (0.0-0.7) 10^3/uL Baso # (Auto) 0.1 (0.0-0.1) 10^3/uL Abs Immat Gran (auto) 0.01 (0.00-0.03) 10^3/uL Imm/Tot Granulo (auto) 0.2 (0.0-0.5) % Sodium 144 (136-145) mmol/L Potassium 3.8 (3.5-5.1) mmol/L Chloride 108 H (98-107) mmol/L Carbon Dioxide 27.1 (21.0-32.0) mmol/L Anion Gap 12.7 BUN 27.0 H (7.0-18.0) mg/dL Creatinine 1.44 H (0.70-1.30) mg/dL Est GFR ( Amer) >60 (>=60 mL/min/1.73m^2) Est GFR (Non-Af Amer) 50 L (>=60 mL/min/1.73m^2) BUN/Creatinine Ratio 18.8 Glucose 154 H (74-106) mg/dL Calcium 8.4 L (8.5-10.1) mg/dL Urine Color Yellow (YELLOW) Urine Clarity Clear (CLEAR) Urine pH 5.0 (5.0-9.0) Ur Specific [place] 1.025 (1.005-1.025) Urine Protein Negative (NEG/TRACE) mg/dL Urine Glucose (UA) Negative (NEGATIVE) mg/dL Urine Ketones Negative (NEGATIVE) mg/dL Urine Occult Blood Large A (NEGATIVE) Urine Nitrite Negative (NEGATIVE) Urine Bilirubin Negative (NEGATIVE) Urine Urobilinogen 0.2 (0.2-1.0) EU/dL Ur Leukocyte Esterase Negative (NEGATIVE) Urine RBC 20-50 A (0-2) #/HPF Urine WBC 0-2 A (NONE SEEN) #/HPF Ur Squamous Epith Cells Few A (NONE/RARE) #/LPF Urine Crystals None seen (None Seen) #/HPF Urine Bacteria Trace A (NONE SEEN) #/HPF Urine Casts None seen (NONE SEEN) #/LPF Urine Mucus Trace A (NONE SEEN) Ur Culture Indicated? No Imaging Data CT scan - abdomen: Attestation: I have reviewed the pertinent imaging results. Radiologist's impression: ITS Impressions Abdomen/Pelvis CT 11/12/24 17:56 IMPRESSION: There is a 1.2 cm stone in the right renal pelvis. This is unchanged in position when compared with prior exam. There is no hydronephrosis. Additional smaller right-sided renal stones are noted. Simple cysts are noted in the right renal cortex requiring no further follow-up. Impression dictated by: Felipe Morgan M.D. 11/12/2024 6:15 PM Dictation Location: [place] [address] Electronically authenticated by: [id number] Y Date: 11/12/2024 18:15 Discharge Plan Discharge Chief Complaint: Back Pain/Injury Clinical Impression: Calculus of kidney Patient Disposition: Admitted as Observation Time of Disposition Decision: 19:10 Condition: Good
[2024-11-12 16:08] LABS: Glucose Urine UA NEGATIVE (NEGATIVE)
[2024-11-12 16:16] LABS: Cast Seen? NONE SEEN #/LPF (NONE SEEN); Crystals Seen? None Seen #/HPF (None Seen); Urine Culture Indicated NO
--- NOTE | 2024-11-12 17:56 | CT_ITS ---
[address] [address] Patient Name: SUKHDEEP SIMENTAL MRN: [id number] date: 1965 Sex: M Assigned Patient Location: ER Current Patient Location: ER Accession/Order Number: [id number] Exam Date: 11/12/2024 17:52 Report Date: 11/12/2024 18:15 At the request of: SHMUEL NOVAK Procedure: CT abdomen pelvis wo con CT abdomen pelvis wo con 11/12/2024 5:57 PM SIGNS AND SYMPTOMS: ^R Kidney stone, right flank pain eval for obstruction TECHNIQUE: Multidetector ct axial images of the abdomen and pelvis were obtained without IV contrast. Multiplanar reformats were performed and reviewed to further define anatomy and possible pathology. CT was performed with one or more of the following dose reduction techniques: Automated exposure control, adjustment of the mA and/or kV according to patient size, or use of iterative reconstruction technique. COMPARISON: 11/11/2024 FINDINGS: Lower Chest: Small bilateral pleural effusions are present. There is dependent atelectasis in the right lung base. ABDOMEN: Liver: Within normal limits. Bile Ducts: Normal caliber. Gallbladder: No calcified gallstones. Normal caliber wall. Pancreas: Within normal limits. Spleen: Within normal limits. Adrenals: Within normal limits. Kidneys: There is a 1.2 cm stone in the right renal pelvis. This is unchanged in position when compared with prior exam. There is no hydronephrosis. Additional smaller right-sided renal stones are noted. Simple cysts are noted in the right renal cortex requiring no further follow-up. Pelvis: Reproductive Organs: No pelvic masses. Ureters: Within normal limits. Bladder: Within normal limits. Bowel: Normal caliber. There is a normal appendix in the right lower quadrant. Postsurgical changes are noted along the gastric wall. Mesenteric Lymph Nodes: No enlarged mesenteric lymph nodes. Peritoneum: No ascites or free air, no fluid collection. Vessels: Atherosclerotic changes are noted in the abdominal aorta and its branches Retroperitoneum: Within normal limits. Abdominal Wall: Within normal limits. Bones: There is posterior fusion from L2 through S1. CT/CT abdomen pelvis wo con IMPRESSION: There is a 1.2 cm stone in the right renal pelvis. This is unchanged in position when compared with prior exam. There is no hydronephrosis. Additional smaller right-sided renal stones are noted. Simple cysts are noted in the right renal cortex requiring no further follow-up. Impression dictated by: Felipe Morgan M.D. 11/12/2024 6:15 PM Dictation Location: [place] [id number] Electronically authenticated by: [id number] Y Date: 11/12/2024 18:15
--- OUTSIDE RECORDS SUMMARY | 2024-11-12 22:51 | XMS_ITS | CCD ---
Author Organization [facility] Care Team Providers Care Graduate Advisor Name Role Phone Blayne Isabel Primary Care Provider SUZANNE ACEVEDO Attending Unavailable BLAYNE ISABEL Primary Care Unavailable ARSENIO BHATTI Referring Unavailable BLAYNE ISABEL Primary Care Unavailable ARSENIO BHATTI Referring Unavailable BLAYNE ISABEL Primary Care Unavailable ROSE SOTELO Attending Unavailable BLAYNE ISABEL Primary Care Unavailable BLAYNE ISABEL Consulting Unavailable Blayne Isabel Primary Care Provider [phone] Blayne Isabel Primary Care Provider [phone] Octavio Becker Attending Provider [phone] Blayne Isabel MD Primary Care Provider OCTAVIO [...] Estephanie Lowry Unavailable STEPH Lowry Attending Provider [phone] NO FAMILY, PHYSICIAN Primary Care Provider Unava ilable DO Gianni Nelson Attending Provider Estephanie Lowry Admitting Unavailable Estephanie [...] Unavailable Blayne Isabel MD Primary Care Provider [phone] [facility], THOMAS Attending Unavailable QUINCY THOMAS Admitting Unavailable [...] Unavailable Blayne Isabel MD Primary Care Provider [phone] PAYTON HELM Referring Unavailable PAYTON HELM Attending Unavailable PAYTON HELM Attending Unavailable Cecelia MURILLO Attending Unavailable MURILLOCecelia R Attending Unavailable MURILLO, Cecelia R Attending Unavailable MURILLO, Cecelia R Attending Unavailable Unavailable Unavailable Unavailable Allergies Allergy Classification Reported Allergen(s) Allergy Type Date of Onset Reaction(s) Facility (16 sources) Povidone-Iodine; Translations: [povidone iodine topical] Drug Allergy 9 [facility] (11 sources) Povidone-Iodine; Translations: [povidone-iodine] Drug Allergy 9 [facility] (9 sources) soap; Translations: [soap] Allergy to substance 9 [facility] (14 sources) Chlorhexidine; Translations: [CHLORHEXIDINE] Drug Allergy 1 [facility] (14 sources) Iodine; Translations: [IODINE] Drug Allergy 9 [facility] Work Phone: (15 sources) Loratadine; Translations: [loratadine] Drug Allergy 2 [facility] (1 source) Chlorhexidine Drug Allergy [facility] Repository (1 source) Povidone-Iodine; Translations: [Betadine] Drug Allergy [facility] Repository Medications Current Medications Medication Drug Class(es) Dates Sig (Normalized) Sig (Original) acetaminophen 500 mg oral tablet (14 sources) Start: 01-02-2022 End: 01-10-2023 take 2 tablets by mouth every eight hours acetaminophen (TYLENOL EXTRA STRENGTH) 500 mg tablet TAKE TWO TABLETS BY MOUTH EVERY 8 HOURS 01/02/2022 Active Comment on above: Take 2 tablets by mo alh every 8 hours. acetaminophen 325 mg / [...] carlos th every 4 hours as needed. [id number] 200 actuat albuterol 0.09 mg/actuat metered dose [...] Start: 01-05-2021 take 1 capsule by mo [facility] every week vitamin D (ERGOCALCIFEROL) 1.25 MG (37441 UT) CAPS capsule Indications: Vitamin D deficiency [...] on above: Take 1 capsule by mo [facility] twice daily. 2 ml [...] Comment on above: Take 1 tablet by [facility] every 3 hours as needed [...] 07, 2023 12:00am take 1 capsule by [facility] once daily in the morning phentermine [...] Repeat number: 1 take 2 tablets by [facility] in the morning pioglitazone (ACTOS) 15 [...] above: Take 1 capsule by [facility] once daily. temazepam 15 mg oral [...] Start: 08-21-2018 take 2 tablets by mo [facility] once daily tiZANidine (ZANAFLEX) [...] ophthalmic solution (2 sources) alpha-Adrenergic Agonist, beta-Adrenergic Mrelyn Brimonidine-Timolol (COMBIGAN) 0.2-0.5 % drop Use 1 [...] on above: Use 1 Drop in the [facility] once daily. 72 hr scopolamine 0.0139 [...] on above: Use 1 [facility] as directed. 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 Normal [facility] Urology Office/Clinic Noteon 08-07-2024 Urology Office/Clinic Note Urology Office/Clinic Note Chief Complaint 18 month f/u with SÁNCHEZ and KUB HPI Staff 58 year old male patient here for follow up with KUB/SÁNCHEZ. KUB/SÁNCHEZ done 07/16/24 @ [facility]. Previous dx: renal mass, kidney stone, [...] acquired) Seen in consult on 06/29/21 at [facility]. 11/14/21 - BUN 19.0. Crea 1.62. [...] Information LIDIA JACOBS, Cecelia Jj, URL [address] [place] [address]- Additional Instructions: 1 year w/ KUB and [...] BMI 40.0- (more content not included)... Normal [facility] Comment on above: Result Comment: Elec tronically Signed By: eCcelia MURILLO MD\.br\Date and Time Signed: 08/07/24 12:00 EDT\.br\Electronically Co-Signed By: Jacqueline Calero\.br\Date and Time Co-Signed: 08/07/24 11:53 EDT\.br\Electronically Co-Signed By: Jacqueline Calero\.br\Date and Time Co-Signed: 08/07/24 11:56 EDT\.br\Electronically Co-Signed By: Jacqueline Calero\.br\Date and Time Co-Signed: 08/07/24 11:57 EDT [facility] Patient Letter [facility] June 22, 2024 [place] [address] : 1965 Dear Mr. Sukhdeep Simental, You [...] any future cancellations. Sincerely, [place] [address] ext.3 [facility] Follow-Upon 06-17-2024 Follow-Up [id number] Sukhdeep Simental F 1965 M Date Provider Department Center 06/17/2024 PAYTON GRIFFITH MP ORTHO MPORTHO Family History Problem Relation Age of Onset Dementia Mother Esophageal cancer Father Alcohol abuse Father Family Status - Relation Status Age at Mother Alive Father Level of Service:17406 DE OFFICE/OUTPATIENT ESTABLISHED SF MDM 10 MIN [facility] 36on 05-18-2024 36 Will need to see the patient as soon as possible repeat x-rays and blood test to further evaluate as he has had previous infections and has high risk for recurrent infections and 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 PT WILL COME IN TODAY [facility] BASIC METABOLIC PANELon 03-2 Anion gap [Moles/Vol] 12 mmol/L Normal 7-20 [facility] Comment on above: Performed By: #### L [id number] #### [facility] ([facility]) [address] [place] [address] Calcium [Mass/Vol] 9.9 mg/dL Normal 8.6-10.3 [facility] Comment on above: Performed By: #### L [id number] #### [facility] ([employer]) [address] [place] [address] Chloride [Moles/Vol] 105 mmol/L Normal 98-107 [facility] Comment on above: Performed By: #### L [id number] #### [facility] ([facility]) [address] [place] [address] CO2 [Moles/Vol] 27 mmol/L Normal 21-31 [facility] Comment on above: Performed By: #### L [id number] #### [facility] ([facility]) [address] [place] [address] Creatinine [Mass/Vol] 1.42 mg/dL High 0.70-1.30 [facility] Comment on above: Performed By: #### L [id number] #### [facility] ([facility]) [address] [place] [address] GLOMERULAR FILTRATION RATE ML/MIN/1.73 SQ M.PREDICTED 56.6 mL/min/1.73m*2 Low >60.0 [facility] Comment on above: Result Comment: The [facility]???s estimated glomerular filtration rate (eGFR) will no [...] individuals. Performed By: #### L [id number] #### [facility] ([facility]) [address] [place] [address] Glucose [Mass/Vol] 102 mg/dL High 70-100 [facility] Comment on above: Performed By: #### L [id number] #### [facility] ([facility]) [address] [place] [address] Potassium [Moles/Vol] 4.4 mmol/L Normal 3.5-5.1 [facility] Comment on above: Performed By: #### L [id number] #### [facility] ([facility]) [address] [place] [address] Sodium [Moles/Vol] 140 mmol/L Normal 136-145 [facility] Comment on above: Performed By: #### L [id number] #### [facility] ([facility]) [address] [place] [address] Urea nitrogen [Mass/Vol] 23 mg/dL Normal 7-25 [facility] Comment on above: Performed By: #### L [id number] #### [facility] ([facility]) [address] [facility] [place] [address] UREA NITROGEN/CREATININE (MASS RATIO) IN SER/PLAS 16.2 Normal [facility] Comment on above: Performed By: #### L [id number] #### [facility] ([facility]) [address] [place] [address] C-REACTIVE PROTEINon 025 C REACTIVE PROTEIN (MG/L) IN SER/PLAS <5.4 Normal <=5.0 [facility] Comment on above: Result Comment: Test ing performed using a new methodology, turbidimetry. Normal ranges have been updated. Old normal range was <8 mg/L. Performed By: #### L [id number] #### [facility] ([facility]) [address] [place] [address] CBC WITH AUTO DIFFERENTIALon 05-18-2024 Basophils (Bld) [#/Vol] 0.06 10*3/uL Normal 0.00-0.20 [facility] Comment on above: Performed By: #### L [id number] #### [facility] ([facility]) [address] [facility] [place] [address] Basophils/100 WBC (Bld) 0.7 % Normal 0.0-1.0 [facility] Comment on above: Performed By: #### L [id number] #### [facility] ([facility]) [address] [place] [address] Eosinophils (Bld) [#/Vol] 0.15 10*3/uL Normal 0.00-0.50 [facility] Comment on above: Performed By: #### L [id number] #### [facility] ([facility]) [address] [place] [address] Eosinophils/100 WBC (Bld) 1.8 % Normal 0.0-6.0 [facility] Comment on above: Performed By: #### L [id number] #### [facility] ([facility]) [address] [place] [address] Erythrocyte distribution width (RBC) [Ratio] 11.9 % Normal 11.5-15.0 [facility] Comment on above: Performed By: #### L [id number] #### [facility] ([facility]) [address] [place] [address] ERYTHROCYTE MEAN CORPUSCULAR HEMOGLOBIN CONCENTRATION (G/DL) BY AUTOMATED 34.5 g/dL Normal 32.0-35.0 [facility] Comment on above: Performed By: #### L [id number] #### [facility] ([facility]) [address] [place] [address] Hematocrit (Bld) [Volume fraction] 47.8 % Normal 39.0-50.0 [facility] Comment on above: Performed By: #### L [id number] #### [facility] ([facility]) [address] [place] [address] Hemoglobin (Bld) [Mass/Vol] 16.5 g/dL Normal 13.0-17.0 [facility] Comment on above: Performed By: #### L [id number] #### [facility] ([facility]) [address] [place] [address] Immature granulocytes (Bld) [#/Vol] 0.03 10*3/uL Normal 0.00-0.20 [facility] Comment on above: Performed By: #### L [id number] #### [facility] ([facility]) [address] [place] [address] Immature granulocytes/100 WBC (Bld) 0.4 % Normal 0.0-1.0 [facility] Comment on above: Performed By: #### L [id number] #### [facility] ([facility]) [address] [place] [address] Lymphocytes (Bld) [#/Vol] 1.80 10*3/uL Normal 1.20-4.00 [facility] Comment on above: Performed By: #### L [id number] #### [facility] ([facility]) [address] [place] [address] Lymphocytes/100 WBC (Bld) 21.8 % Normal 20.0-45.0 [facility] Comment on above: Performed By: #### L [id number] #### [facility] ([facility]) [address] [place] [address] MCH (RBC) [Entitic mass] 31.5 pg Normal 27.0-33.0 [facility] Comment on above: Performed By: #### L [id number] #### [facility] ([facility]) [address] [place] [address] MCV (RBC) [Entitic vol] 91.4 fL Normal 82.0-98.0 [facility] Comment on above: Performed By: #### L [id number] #### [facility] ([facility]) [address] [place] [address] Monocytes (Bld) [#/Vol] 0.66 10*3/uL Normal 0.10-1.00 [facility] Comment on above: Performed By: #### L [id number] #### [facility] ([facility]) [address] [place] [address] Monocytes/100 WBC (Bld) 8.0 % Normal 5.0-12.0 [facility] Comment on above: Performed By: #### L [id number] #### [facility] ([facility]) [address] [place] [address] Neutrophils (Bld) [#/Vol] 5.56 10*3/uL Normal 1.60-7.60 [facility] Comment on above: Performed By: #### L [id number] #### [facility] ([facility]) [address] [place] [address] Neutrophils/100 WBC (Bld) 67.3 % Normal 40.0-72.0 [facility] Comment on above: Performed By: #### L [id number] #### [facility] ([facility]) [address] [place] [address] NRBC (PER 100 WBCS) BY AUTOMATED COUNT 0.0 % Normal 0 [facility] Comment on above: Performed By: #### L [id number] #### [facility] ([facility]) [address] [place] [address] PLATELETS (10*3/UL) IN BLOOD AUTOMATED COUNT 247 10*3/uL Normal 150-400 [facility] Comment on above: Performed By: #### L [id number] #### [facility] ([facility]) [address] [place] [address] RBC (Bld) [#/Vol] 5.23 10*6/uL Normal 4.20-5.70 [facility] Comment on above: Performed By: #### L [id number] #### [facility] ([facility]) [address] [place] [address] WBC (Bld) [#/Vol] 8.26 10*3/uL Normal 4.00-10.60 [facility] Comment on above: Performed By: #### L [id number] #### [facility] ([facility]) [address] [place] [address] Follow-Upon 05-18-2024 Follow-Up [id number] Sukhdeep Simental 1965 M Date Provider Department Center 05/18/2024 PAYTON GRIFFITH MP ORTHO MPOKATIHA Family History Problem Relation Age of Onset Dementia Mother Esophageal cancer Father Alcohol abuse Father Family Status - Relation Status Age at Mother Alive Father Level of Service:45249 DE OFFICE/OUTPATIENT ESTABLISHED MOD MDM 30 MIN () Reason for Visit and Comments: Pain [136] - Swelling starts 2 months ago, started swimming about a month ago and it only made his knee worse Edema [[id number]] - Swelling starts 2 months ago, started swimming about a month ago and it only made his knee worse Normal [facility] Labon 05-18-2024 Lab [id number] Sukhdeep Simental 1965 M Date Provider Department Center 05/18/2024 2244-[facility] MP LAB RESOURCE MP DRAW Medical Pavi Family History Problem Relation Age of Onset Dementia Mother Esophageal cancer Father Alcohol abuse Father Family Status - Relation Status Age at Mother Alive Father Normal [facility] SEDIMENTATION RATEon 025 SEDIMENTATION RATE, ERYTHROCYTE 5 mm/hr Normal <20 [facility] Comment on above: Performed By: #### L [id number] #### [facility] ([facility]) [address] [place] [address] 36on 05-15-2024 36 Patient feels like h is infection is back. Right knee swelling and pain but no fever. He was seen by Dr. Isabel and he put him on oral antibiotics and wanted Dr. Helm know in case he wants him to come in and be exam. Normal [facility] Erythrocyte distribution wid th Auto (RBC) [Ratio]on 10-29-2023 Erythrocyte distribution width (RBC) [Ratio] 11.5 % 11.0-15.0 [facility] Estimated glomerular filtrat ion rate (GFR) non- Americanon 10-29-2023 GFR/1.73 sq M.predicted among non-blacks MDRD (S/P/Bld) [Vol rate/Area] 51 mL/min/{1.73_m2} Low >=60 [facility] Hematocrit Auto (Bld) [Volum e fraction]on 10-29-2023 Hematocrit (Bld) [Volume fraction] 47.7 % 42.0-54.0 [facility] Hemoglobin [Mass/volume] in Bloodon 10-29-2023 Hemoglobin (Bld) [Mass/Vol] 16.8 g/dL 14.0-18.0 [facility] Laboratory - Chemistry and C hemistry - challengeon 10-29-2023 Albumin [Mass/Vol] 3.7 g/dL 3.4-5.0 [facility] Calcium [Mass/Vol] 9.0 mg/dL 8.5-10.1 [facility] Chloride [Moles/Vol] 103 mmol/L 98-107 [facility] CO2 [Moles/Vol] 26.8 mmol/L 21.0-32.0 [facility] Creatinine [Mass/Vol] 1.41 mg/dL High 0.70-1.30 [facility] GFR/1.73 sq M.predicted MDRD (S/P/Bld) [Vol rate/Area] mL/min/{1.73_m2} >=60 [facility] Glucose [Mass/Vol] 167 mg/dL High 74-106 [facility] Magnesium [Mass/Vol] 1.9 mg/dL 1.8-2.4 [facility] Potassium [Moles/Vol] 3.9 mmol/L 3.5-5.1 [facility] Sodium [Moles/Vol] 141 mmol/L 136-145 [facility] Urate [Mass/Vol] 7.9 mg/dL High 3.5-7.2 [facility] Urea nitrogen [Mass/Vol] 26.0 mg/dL High 7.0-18.0 [facility] Urea nitrogen/Creatinine [Mass ratio] 18.4 mg/mg [facility] Bilirubin Ql (U) Negative NEGATIVE [facility] Glucose (U) [Mass/Vol] Negative NEGATIVE [facility] Ketones Ql (U) Negative NEGATIVE [facility] pH (U) 6.0 [pH] 5.0-9.0 [facility] Specific gravity (U) [Rel density] 1.015 1.005-1.025 [facility] Urobilinogen Qn (U) 0.2 {Dahiana'U}/dL 0.2-1.0 [facility] Laboratory - Specimen inform ationon 10-29-2023 Appearance (U) CLEAR CLEAR [facility] Color (U) LT. YELLOW YELLOW [facility] Laboratory - Urinalysison Hyaline casts LM Ql (Urine sed) RARE [facility] Leukocyte esterase Test strip Ql (U) Negative NEGATIVE [facility] Mucus Ql (Urine sed) NONE SEEN NONE SEEN [facility] Nitrite Ql (U) Negative NEGATIVE [facility] Protein Ql (U) Negative NEG/TRACE [facility] Leukocytes [#/volume] correc romaine for nucleated erythrocytes in Blood by Automated counon 10-29-2023 WBC corrected for nucl RBC Auto (Bld) [#/Vol] 6.9 10 3/uL 4.0-11.0 [facility] MCH Auto (RBC) [Entitic mass ]on 10-29-2023 MCH (RBC) [Entitic mass] 32.2 pg 25.9-34.0 [facility] MCHC Auto (RBC) [Mass/Vol]on 10-29-2023 MCHC (RBC) [Mass/Vol] 35.2 g/dL 29.9-35.2 [facility] MCV Auto (RBC) [Entitic vol] on 10-29-2023 MCV (RBC) [Entitic vol] 91.6 fL 80.0-94.0 [facility] No Panel Informationon 10-28 25-Hydroxy Vitamin D Total 40.8 ng/mL [facility] Comment on above: <20 ng/mL Vit D defi cient20-<30 ng/mL Vit D [id number] ng/mL Vit D sufficient>100 ng/mL Potential Toxicity Parathyroid Hormone (Intact) 91 pg/mL Abnormal 15-65 [facility] Comment on above: Performed at: - [facility] [address] [id number] Director: Logan Martinez PhD, Phone: [phone] Phosphorus Level 2.3 mg/dL Low 2.6-4.7 [facility] Urine Bacteria NONE SEEN #/HPF NONE SEEN [facility] Urine Occult Blood Negative NEGATIVE [facility] Urine Other Casts SEEN #/LPF Abnormal NONE SEEN [facility] Urine Random Creatinine 15.18 mg/dL Low 20.00-300.00 [facility] Urine Random Total Protein <6.0 mg/dL <=11.9 [facility] Urine RBC NONE SEEN #/HPF 0-2 [facility] Urine Squamous Epithelial Cells FEW #/LPF Abnormal NONE/RARE [facility] Urine WBC NONE SEEN #/HPF NONE SEEN [facility] Platelet mean volume Auto (B ld) [Entitic vol]on 10-29-2023 Platelet mean volume (Bld) [Entitic vol] 8.9 fL Low 9.5-13.5 [facility] Platelets Auto (Bld) [#/Vol] on 10-29-2023 Platelets (Bld) [#/Vol] 236 10 3/uL 150-450 [facility] RBC Auto (Bld) [#/Vol]on RBC (Bld) [#/Vol] 5.21 10 6/uL 4.70-6.10 [facility] Serum or plasma anion gap de terminationon 10-29-2023 Anion gap [Moles/Vol] 15.1 mmol/L [facility] CNPNon 10-07-2023 CNPN Telephone (NEADFV) SUKHDEEP SIMENTAL ([id number]) 1965 M Date Time Provider Department 10/07/23 [facility] During [facility] visit today, we recorded [...] Encounter Status:Closed by ARIANNA MUHAMMAD on 06/25/24 [facility] CNPN Telephone (DataStaxFV) SUKHDEEP SIMENTAL ([id number]) 1965 M Date Time Provider Department 10/04/23 [facility] During your visit today, we [...] PABLO NOVA on 10/04/23 [facility] SUKHDEEP SIMENTAL ([id number]) 1965 M Date Time Provider Department 07/30/23 THOMAS MATHEW [facility] During your visit today, we recorded the following information about you: Arianna Little 07/30/2023 11:51 AM Signed Pt phoned regarding upcoming visit 10/06 [place] appt. Pt unable to manage virtual visit asking for telephone visit. Pt asking how far in advance to do X-Ray. Pt will have X-Ray done locally at [facility]. Please call and advise Pt phone # [phone] Ekaterina oRndon 07/30/2023 1:07 PM Signed Have sent XR Lumbar order to [facility] fax # [phone] as requested from patient. Riddhi Goss APRN.[facility] 07/30/2023 3:25 PM Signed Called Sukhdeep, [...] Encounter Status:Closed by RIDDHI GOSS on 07/30/23 [facility] CNPN Telephone (NIQ) SUKHDEEP SIMENTAL ([id number]) 1965 M Date Time Provider Department 07/23/23 THOMAS MATHEW During your visit today, we recorded the following information about you: Brenda Alex 07/23/2023 9:38 AM Signed Received request from [email or web address] needing more info, in [employer] for review. Juan Pablo Nova RN 07/23/2023 [...] Status:Closed by JUAN PABLO NOVA on 07/26/23 [facility] 04-16-2023 CNPN Telephone (NIQ) SUKHDEEP SIMENTAL ([id number]) 1965 M Date Time Provider Department 04/16/23 THOMAS MATHEW [facility] During your visit today, we recorded the following information about you: Moriah Ferguson 04/16/2023 1:27 PM Signed Received imaging disc by mail from [facility] Disc contains CT Lumbar spine done on [...] Status:Closed by MORIAH FERGUSON on 06/06/23 [facility] L[facility]ette 04-10-2023 HARIKA Telephone (NIQ) SUKHDEEP SIMENTAL ([id number]) 1965 M Date Time Provider Department 04/10/23 [...] Allergies) Date Reviewed: 03/25/2023 Reviewed by: Mundo Nses PCNA - Fully Assessed Reason for Visit: [...] on 04/18/23 [facility] 04-09-2023 CNPN Telephone (NIQ) SUKHDEEP SIMENTAL ([id number]) 1965 M Date Time Provider Department 04/09/23 THOMAS MATHEW During your visit today, we recorded the following information about you: Brenda Alex 04/09/2023 10:[address] Lumbar Spine Report from [facility] in epic to review. Brittany Rubio PA-C [...] Encounter Status:Closed by ROBSON LAZO on 04/09/23 [facility] 02-11-2023 [facility] Telephone (NIQ) SUKHDEEP SIMENTAL ([id number]) 1965 M Date Time Provider Department 02/11/23 THOMAS MATHEW During your visit today, we recorded the following information about you: Moriah Ferguson 02/11/2023 1:36 PM Signed Received fax from [email or web address] requesting office notes, C-9, and [facility]. See fax scanned in patient's chart. Juan Pablo Nova RN 02/13/2023 3:14 PM Signed Information faxed to number requested. Faxed verification received. MariamVincent jiménezbrigido Rojo 03/06/2023 3:20 PM Signed Received updated notes from [facility] dated 03/05/23. Scanned into [employer]. Allergies As of Date: 02/11/2023 (No Known Allergies) Date Reviewed: 02/07/2023 Reviewed by: Brittany Ratliff - Fully Assessed Reason for Visit: [facility] (Worker's Comp) [4136] Prescriptions as of [...] on 02/13/23 [facility] 12-21-2022 [facility] Telephone (NIQ) SUKHDEEP SIMENTAL ([id number]) 1965 M Date Time Provider Department 12/21/22 THOMAS MATHEW During your visit today, we recorded the following information about you: Moriah Ferguson 12/21/2022 9:29 AM Signed Patient called with complaints of [facility] [place] not allowing him to chart picker the pain medication that was sent [...] Encounter Status:Closed by XI SCHRADER on 12/21/22 [facility] 12-18-2022 CNPN Telephone (PODCCP) SUKHDEEP SIMENTAL ([id number]) 1965 M Date Time Provider Department 12/18/22 BLAYNE ISABEL PODCCP During your visit today, we recorded the following information about you: Amaury Carreon 12/18/2022 1:52 PM Signed PATIENT INFORMATION Record ID: [id number] Patient Name: [facility]: Mandaeism Vincent: Neurological Vincent Attending: Thomas Mathew Center: [facility] INSTRUCTIONS SN to remind patient of next upcoming appointment date, time, location SN TRANSFER TO [facility] SURVEY INFORMATION Medical/Nurse Digitizer Operator: Amaury Calderón 1. Your discharge instructions are [...] Reason for Visit: Follow Up Phone Call [4003] Cmt: All Clear Prescriptions as of 12/18/2022 [...] Encounter Status:Closed by AMAURY CARREON [facility] Telephone (NIQ) SUKHDEEP SIMENTAL ([id number]) 1965 M Date Time Provider Department 12/14/22 [...] via voice mail, as requested. Scanned into [facility]. Allergies As of Date: 12/14/2022 (No Known [...] Status:Closed by ABBY HERNANDEZ on 12/17/22 Normal [facility] Basic metabolic 2000 panelon 12-11-2022 Anion gap [Moles/Vol] 8 mmol/L Low 9-18 [facility] Comment on above: Order Comment: Speci men Type: BLOOD SPECIMEN Ordering Facility: [facility] Address: [address] [place] [address] Performed By: #### 2 4321-2 #### [facility] CLIA [id number] [address] [place] [address] [place] Calcium [Mass/Vol] 8.7 mg/dL Normal 8.5-10.2 [facility] Comment on above: Order Comment: Speci men Type: BLOOD SPECIMEN Ordering Facility: [facility] Address: [address] [place] [address] Performed By: #### 2 4321-2 #### [facility] CLIA [id number] [address] [place] [address] [place] Chloride [Moles/Vol] 106 mmol/L High 97-105 [place] Comment on above: Order Comment: Speci men Type: BLOOD SPECIMEN Ordering Facility: [facility] Address: [address] [place] [address] Performed By: #### 2 4321-2 #### [facility] CLIA [id number] [address] [place] [address] [place] CO2 [Moles/Vol] 29 mmol/L Normal 22-30 [facility] Comment on above: Order Comment: Speci men Type: BLOOD SPECIMEN Ordering Facility: [facility] Address: [address] [place] [address] Performed By: #### 2 4321-2 #### [facility] CLIA [id number] [address] [place] [address] [place] Creatinine [Mass/Vol] 1.17 mg/dL Normal 0.73-1.22 [facility] Comment on above: Order Comment: Speci men Type: BLOOD SPECIMEN Ordering Facility: [facility] Address: [address] [place] [address] Performed By: #### 2 4321-2 #### [facility] CLIA [id number] [address] [place] [address] [place] Creatinine and Glomerular filtration rate.predicted panel (S/P/Bld) 72 mL/min/1.73m??? Normal >=60 [facility] Comment on above: Order Comment: Shahrzad dumont Type: BLOOD SPECIMEN Ordering Facility: [facility] Address: [address] [place] [address] Result Comment: Leah mated Glomerular Filtration Rate [...] GFR. Performed By: #### 2 4321-2 #### [facility] CLIA [id number] [address] [place] [address] [place] Glucose [Mass/Vol] 98 mg/dL Normal 74-99 [facility] Comment on above: Order Comment: Shahrzad dumont Type: BLOOD SPECIMEN Ordering Facility: [facility] Address: [address] [place] [address] Result Comment: The [place] Diabetes Association (ADA) provides guidance for cutoff [...] Standards of Medical Care in Diabetes 2016, [place] [employer]. Diabetes Care. 2016.39(Suppl 1). Performed By: #### 2 4321-2 #### [facility] CLIA [id number] [address] [place], [place] [address] [place] Potassium [Moles/Vol] 4.8 mmol/L Normal 3.7-5.1 [facility] Comment on above: Order Comment: Speci men Type: BLOOD SPECIMEN Ordering Facility: [facility] Address: [address] [place] [address] Performed By: #### 2 4321-2 #### [facility] CLIA [id number] [address] [place], [place] [address] [facility] Sodium [Moles/Vol] 143 mmol/L Normal 136-144 [facility] Comment on above: Order Comment: Speci men Type: BLOOD SPECIMEN Ordering Facility: [facility] Address: [address] [place] [address] Performed By: #### 2 4321-2 #### [facility] CLIA [id number] [address] [place], [place] [address] [place] [facility] Urea nitrogen [Mass/Vol] 13 mg/dL Normal 9-24 [facility] Comment on above: Order Comment: Speci men Type: BLOOD SPECIMEN Ordering Facility: [facility] Address: [address] [place] [address] Performed By: #### 2 4321-2 #### [facility] CLIA [id number] [address] [place], [place] [address] [facility] CASE MANAGEMon 12-11-2022 CASE MANAGEM HNO ID: [id number] Author: Gloria Toro RN Service: ? Author Type: Registered Nurse Type: Care Mgt Progress Note Filed: 12/11/2022 3:26 PM Note Text: CARE MANAGEMENT PROGRESS NOTE SERVICE DATE: 12/11/2022 SERVICE TIME: 3:26 pm LOS: 4 days No further skilled PT / OT needed at [place]. SIGNATURE: Gloria Toro RN PATIENT NAME: Sukhdeep Simental DATE: December 11, 2022 TIME: 3:25 PM PAGER/CONTACT #: [phone] Normal [facility] CBC panel Auto (Bld)on 12-11 Erythrocyte distribution width (RBC) [Ratio] 12.5 % Normal 11.5-15.0 [facility] Comment on above: Order Comment: Speci men Type: BLOOD SPECIMEN Ordering Facility: [facility] Address: [address] [place] [address] Performed By: #### 5 8410-2 #### [facility] CLIA [id number] [address] [place] [address] [place] Hematocrit (Bld) [Volume fraction] 34.6 % Low 39.0-51.0 [facility] Comment on above: Order Comment: Speci men Type: BLOOD SPECIMEN Ordering Facility: [facility] Address: [address] [place] [address] Performed By: #### 5 8410-2 #### [facility] IA [id number] [address] [place] [address] [place] Hemoglobin (Bld) [Mass/Vol] 11.7 g/dL Low 13.0-17.0 [facility] Comment on above: Order Comment: Speci men Type: BLOOD SPECIMEN Ordering Facility: [facility] Address: [address] [place] [address] Performed By: #### 5 8410-2 #### [facility] IA [id number] [address] [place] [address] [place] MCH (RBC) [Entitic mass] 32.0 pg Normal 26.0-34.0 [facility] Comment on above: Order Comment: Speci men Type: BLOOD SPECIMEN Ordering Facility: [facility] Address: [address] [place] [address] Performed By: #### 5 8410-2 #### [facility] IA [id number] [address] [place] [address] [place] MCHC (RBC) [Mass/Vol] 33.8 g/dL Normal 30.5-36.0 [facility] Comment on above: Order Comment: Speci men Type: BLOOD SPECIMEN Ordering Facility: [facility] Address: [address] [place] [address] Performed By: #### 5 8410-2 #### [facility] IA [id number] [address] [place] [address] [place] MCV (RBC) [Entitic vol] 94.5 fL Normal 80.0-100.0 [facility] Comment on above: Order Comment: Speci men Type: BLOOD SPECIMEN Ordering Facility: [facility] Address: [address] [place] [address] Performed By: #### 5 8410-2 #### [facility] CLIA [id number] [address] [place], [place] [address] [place] Nucleated RBC (Bld) [#/Vol] 10*3/uL Normal <0.01 [facility] Comment on above: Order Comment: Speci men Type: BLOOD SPECIMEN Ordering Facility: [facility] Address: [address] [place] [address] Performed By: #### 5 8410-2 #### [facility] CLIA [id number] [address] [place] [address] [place] Platelet mean volume (Bld) [Entitic vol] 9.4 fL Normal 9.0-12.7 [facility] Comment on above: Order Comment: Speci men Type: BLOOD SPECIMEN Ordering Facility: [facility] Address: [address] [place] [address] Performed By: #### 5 8410-2 #### [facility] CLIA [id number] [address] [place] [address] [place] Platelets (Bld) [#/Vol] 196 10*3/uL Normal 150-400 [facility] Comment on above: Order Comment: Speci men Type: BLOOD SPECIMEN Ordering Facility: [facility] Address: [address] [place] [address] Performed By: #### 5 8410-2 #### [facility] CLIA [id number] [address] [place] [address] [place] RBC (Bld) [#/Vol] 3.66 10*6/uL Low 4.20-6.00 [facility] Comment on above: Order Comment: Speci men Type: BLOOD SPECIMEN Ordering Facility: [facility] Address: [address] [place] [address] Performed By: #### 5 8410-2 #### [facility] CLIA [id number] [address] [place] [address] [place] WBC (Bld) [#/Vol] 9.04 10*3/uL Normal 3.70-11.00 [facility] Comment on above: Order Comment: Shahrzad dumont Type: BLOOD SPECIMEN Ordering Facility: [facility] Address: [place] [address] Performed By: #### 5 8410-2 #### [facility] CLIA [id number] [facility] [address] OF [facility] CNDSon 12-11-2022 CNDS HNO ID: [id number] Author: Brittany Ruibo PA-C Service: Neurosurgery Author Type: Physician Digitizer Operator Type: Discharge Summary Filed: 12/11/2022 10:38 AM [...] you become constipated, you may use any rtuv-kvr-bbazkjz treatment such as Milk of Magnesia, Sennakot, Prune Juice, Suppositories, etc. in addition to the stool softener/fiber supplement No alcohol or driving while on pain medication Use the dispensed medication (see prescription) You should use an crgk-sau-smrbsmp stool softener (Docusate sodium) and/or a fiber [...] call for appointment?: (more content not included)... [facility] CONSULTon 12-11-2022 CONSULT HNO ID: [id number] Author: Jaiden Rucker PA-C Service: Pain Management Author Type: Physician Digitizer Operator Type: Consults Filed: 12/11/2022 8:09 AM Note [...] 8/10 Lack of pain control with iv technical research scientist fentanyl and dilaudid PERTINENT ROS: denies fever, [...] (fL) Date Saniya (more content not included)... [facility] NURSING PROGon 12-11-2022 NURSING PROG HNO ID: [id number] Author: Erlinda Bui, RN Service: Nursing Author [...] information. Patient verbalizing understanding of instructions. Normal [facility] Basic metabolic 2000 panelon 12-10-2022 Anion gap [Moles/Vol] 7 mmol/L Low -18 [facility] Comment on above: Order Comment: Speci men Type: BLOOD SPECIMEN Ordering Facility: [facility] Address: [address] [place] [address] Performed By: #### 2 4321-2 #### [facility] CLIA [id number] [address] [place] [address] [place] Calcium [Mass/Vol] 8.3 mg/dL Low 8.5-10.2 [facility] Comment on above: Order Comment: Speci men Type: BLOOD SPECIMEN Ordering Facility: [facility] Address: [address] [place] [address] Performed By: #### 2 4321-2 #### [facility] CLIA [id number] [address] [place] [address] [place] Chloride [Moles/Vol] 107 mmol/L High 97-105 [place] Comment on above: Order Comment: Speci men Type: BLOOD SPECIMEN Ordering Facility: [facility] Address: [address] [place] [address] Performed By: #### 2 4321-2 #### [facility] CLIA [id number] [address] [place] [address] [place] CO2 [Moles/Vol] 26 mmol/L Normal 22-30 [facility] Comment on above: Order Comment: Speci men Type: BLOOD SPECIMEN Ordering Facility: [facility] Address: [address] [place] [address] Performed By: #### 2 4321-2 #### [facility] CLIA [id number] [address] [place] [address] [place] Creatinine [Mass/Vol] 1.16 mg/dL Normal 0.73-1.22 [facility] Comment on above: Order Comment: Shahrzad dumont Type: BLOOD SPECIMEN Ordering Facility: [facility] Address: [address] [place] [address] Performed By: #### 2 4321-2 #### [facility] CLIA [id number] [address] [place], [place] [address] [place] Creatinine and Glomerular filtration rate.predicted panel (S/P/Bld) 73 mL/min/1.73m??? Normal >=60 [facility] Comment on above: Order Comment: Toneyfrances dumont Type: BLOOD SPECIMEN Ordering Facility: [facility] Address: [address] [place] [address] Result Comment: Leah mated Glomerular Filtration Rate [...] GFR. Performed By: #### 2 4321-2 #### [facility] CLIA [id number] [address] [place], [place] [address] [place] Glucose [Mass/Vol] 129 mg/dL High 74-99 [facility] Comment on above: Order Comment: Shahrzad dumont Type: BLOOD SPECIMEN Ordering Facility: [facility] Address: [address] [place] [address] Result Comment: The [place] Diabetes Association (ADA) provides guidance for cutoff [...] Standards of Medical Care in Diabetes 2016, [place] [employer]. Diabetes Care. 2016.39(Suppl 1). Performed By: #### 2 4321-2 #### [facility] CLIA [id number] [address] [place] [address] [place] Potassium [Moles/Vol] 4.3 mmol/L Normal 3.7-5.1 [facility] Comment on above: Order Comment: Speci men Type: BLOOD SPECIMEN Ordering Facility: [facility] Address: [address] [place] [address] Performed By: #### 2 4321-2 #### [facility] CLIA [id number] [address] [place] [address] [place] Sodium [Moles/Vol] 140 mmol/L Normal 136-144 [facility] Comment on above: Order Comment: Speci men Type: BLOOD SPECIMEN Ordering Facility: [facility] Address: [address] [place] [address] Performed By: #### 2 4321-2 #### [facility] CLIA [id number] [address] [place] [address] [place] Urea nitrogen [Mass/Vol] 16 mg/dL Normal 9-24 [facility] Comment on above: Order Comment: Speci men Type: BLOOD SPECIMEN Ordering Facility: [facility] Address: [address] [place] [address] Performed By: #### 2 4321-2 #### [facility] IA [id number] [address] [place] [address] [place] CBC panel Auto (Bld)on 12-10 Erythrocyte distribution width (RBC) [Ratio] 12.6 % Normal 11.5-15.0 [facility] Comment on above: Order Comment: Speci men Type: BLOOD SPECIMEN Ordering Facility: [facility] Address: [address] [place] [address] Performed By: #### 5 8410-2 #### [facility] CLIA [id number] [address] [place] [address] [place] Hematocrit (Bld) [Volume fraction] 32.7 % Low 39.0-51.0 [facility] Comment on above: Order Comment: Speci men Type: BLOOD SPECIMEN Ordering Facility: [facility] Address: [address] [place] [address] Performed By: #### 5 8410-2 #### [facility] CLIA [id number] [address] [place] [address] [place] Hemoglobin (Bld) [Mass/Vol] 10.9 g/dL Low 13.0-17.0 [facility] Comment on above: Order Comment: Speci men Type: BLOOD SPECIMEN Ordering Facility: [facility] Address: [address] [place] [address] Performed By: #### 5 8410-2 #### [facility] IA [id number] [address] [place] [address] [place] MCH (RBC) [Entitic mass] 31.5 pg Normal 26.0-34.0 [facility] Comment on above: Order Comment: Speci men Type: BLOOD SPECIMEN Ordering Facility: [facility] Address: [address] [place] [address] Performed By: #### 5 8410-2 #### [facility] IA [id number] [address] [place] [address] [place] MCHC (RBC) [Mass/Vol] 33.3 g/dL Normal 30.5-36.0 [facility] Comment on above: Order Comment: Speci men Type: BLOOD SPECIMEN Ordering Facility: [facility] Address: [address] [place] [address] Performed By: #### 5 8410-2 #### [facility] IA [id number] [address] [place] [address] [place] MCV (RBC) [Entitic vol] 94.5 fL Normal 80.0-100.0 [facility] Comment on above: Order Comment: Speci men Type: BLOOD SPECIMEN Ordering Facility: [facility] Address: [address] [place] [address] Performed By: #### 5 8410-2 #### [facility] IA [id number] [address] [place] [address] [place] Nucleated RBC (Bld) [#/Vol] 10*3/uL Normal <0.01 [facility] Comment on above: Order Comment: Speci men Type: BLOOD SPECIMEN Ordering Facility: [facility] Address: [address] [place] [address] Performed By: #### 5 8410-2 #### [facility] CLIA [id number] [address] [place], [place] [address] [place] Platelet mean volume (Bld) [Entitic vol] 9.6 fL Normal 9.0-12.7 [facility] Comment on above: Order Comment: Speci men Type: BLOOD SPECIMEN Ordering Facility: [facility] Address: [address] [place] [address] Performed By: #### 5 8410-2 #### [facility] CLIA [id number] [address] [place] [address] [place] Platelets (Bld) [#/Vol] 157 10*3/uL Normal 150-400 [facility] Comment on above: Order Comment: Speci men Type: BLOOD SPECIMEN Ordering Facility: [facility] Address: [address] [place] [address] Performed By: #### 5 8410-2 #### [facility] IA [id number] [address] [place] [address] [place] RBC (Bld) [#/Vol] 3.46 10*6/uL Low 4.20-6.00 [facility] Comment on above: Order Comment: Speci men Type: BLOOD SPECIMEN Ordering Facility: [facility] Address: [address] [place] [address] Performed By: #### 5 8410-2 #### [facility] CLIA [id number] [address] [place] [address] [place] WBC (Bld) [#/Vol] 8.16 10*3/uL Normal 3.70-11.00 [facility] Comment on above: Order Comment: Speci men Type: BLOOD SPECIMEN Ordering Facility: [facility] Address: [address] [place] [address] Performed By: #### 5 8410-2 #### [facility] CLIA [id number] [address] [place] [address] [place] THERAPY NTon 12-10-2022 THERAPY NT HNO ID: [id number] Author: Odilon Madrid PT Service: Physical Therapy Author Type: Physical Therapist Type: Therapy (PT/OT/Speech/Resp) Filed: 12/10/2022 11:20 AM Note Text: PHYSICAL THERAPY MISSED VISIT SERVICE DATE: 12/10/2022 SERVICE TIME: 1109 to 1111 ROOM: [place] [address] Patient not seen due to Refused Treatment. Pt reported pain levels are too high to attempt therapy. Will f/u as schedule allows and pain improves. SIGNATURE: Odilon Madrid PT PATIENT NAME: Sukhdeep Simental DATE: December 10, 2022 TIME: 11:20 AM [facility] ALLIED HEALTHon 12-09-2022 ALLIED HEALTH HNO ID: [id number] Author: Akila Huitron RT(R) Service: Radiology Author [...] RT Jose(R) December 09, 2022 2:01 PM [facility] Basic metabolic 2000 panelon 12-09-2022 Anion gap [Moles/Vol] 6 mmol/L Low 11-12 [facility] Comment on above: Order Comment: Speci men Type: BLOOD SPECIMEN Ordering Facility: [facility] Address: [address] [place] [address] Performed By: #### 2 4321-2 #### [facility] CLIA [id number] [address] [place] [address] [place] Calcium [Mass/Vol] 8.5 mg/dL Normal 8.5-10.2 [facility] Comment on above: Order Comment: Speci men Type: BLOOD SPECIMEN Ordering Facility: [facility] Address: [address] [place] [address] Performed By: #### 2 4321-2 #### [facility] CLIA [id number] [address] [place] [address] [place] Chloride [Moles/Vol] 106 mmol/L High 97-105 [place] Comment on above: Order Comment: Speci men Type: BLOOD SPECIMEN Ordering Facility: [facility] Address: [address] [place] [address] Performed By: #### 2 4321-2 #### [facility] CLIA [id number] [address] [place] [address] [place] CO2 [Moles/Vol] 30 mmol/L Normal 22-30 [facility] Comment on above: Order Comment: Speci men Type: BLOOD SPECIMEN Ordering Facility: [facility] Address: [address] [place] [address] Performed By: #### 2 4321-2 #### [facility] IA [id number] [address] [place] [address] [place] Creatinine [Mass/Vol] 1.34 mg/dL High 0.73-1.22 [facility] Comment on above: Order Comment: Speci men Type: BLOOD SPECIMEN Ordering Facility: [facility] Address: [address] [place] [address] Performed By: #### 2 4321-2 #### [facility] CLIA [id number] [address] [place] [address] [place] Creatinine and Glomerular filtration rate.predicted panel (S/P/Bld) 61 mL/min/1.73m??? Normal >=60 [facility] Comment on above: Order Comment: Speci men Type: BLOOD SPECIMEN Ordering Facility: [facility] Address: [address] [place] [address] Result Comment: Leah mated Glomerular Filtration Rate [...] GFR. Performed By: #### 2 4321-2 #### [facility] CLIA [id number] [address] [place] [address] [place] Glucose [Mass/Vol] 105 mg/dL High 74-99 [facility] Comment on above: Order Comment: Shahrzad dumont Type: BLOOD SPECIMEN Ordering Facility: [facility] Address: [place] [address] Result Comment: The [place] Diabetes Association (ADA) provides guidance for cutoff [...] Standards of Medical Care in Diabetes 2016, [place] [employer]. Diabetes Care. 2016.39(Suppl 1). Performed By: #### 2 4321-2 #### [facility] CLIA [id number] [address] [place], [place] [address] [place] Potassium [Moles/Vol] 3.9 mmol/L Normal 3.7-5.1 [facility] Comment on above: Order Comment: Shahrzad dumont Type: BLOOD SPECIMEN Ordering Facility: [facility] Address: [place] [address] Performed By: #### 2 4321-2 #### [facility] CLIA [id number] [address] [place], [place] [address] [place] Sodium [Moles/Vol] 142 mmol/L Normal 136-144 [facility] Comment on above: Order Comment: Speci men Type: BLOOD SPECIMEN Ordering Facility: [facility] Address: [address] [place] [address] Performed By: #### 2 4321-2 #### [facility] CLIA [id number] [address] [place] [address] [place] Urea nitrogen [Mass/Vol] 18 mg/dL Normal 9-24 [facility] Comment on above: Order Comment: Speci men Type: BLOOD SPECIMEN Ordering Facility: [facility] Address: [address] [place] [address] Performed By: #### 2 4321-2 #### [facility] CLIA [id number] [address] [place] [address] [place] CBC panel Auto (Bld)on 12-09 Erythrocyte distribution width (RBC) [Ratio] 12.7 % Normal 11.5-15.0 [facility] Comment on above: Order Comment: Speci men Type: BLOOD SPECIMEN Ordering Facility: [facility] Address: [address] [place] [address] Performed By: #### 5 8410-2 #### [facility] CLIA [id number] [address] [place] [address] [place] Hematocrit (Bld) [Volume fraction] 34.1 % Low 39.0-51.0 [facility] Comment on above: Order Comment: Speci men Type: BLOOD SPECIMEN Ordering Facility: [facility] Address: [address] [place] [address] Performed By: #### 5 8410-2 #### [facility] CLIA [id number] [address] [place] [address] [place] Hemoglobin (Bld) [Mass/Vol] 11.6 g/dL Low 13.0-17.0 [facility] Comment on above: Order Comment: Speci men Type: BLOOD SPECIMEN Ordering Facility: [facility] Address: [address] [place] [address] Performed By: #### 5 8410-2 #### [facility] CLIA [id number] [address] [place] [address] [place] MCH (RBC) [Entitic mass] 32.3 pg Normal 26.0-34.0 [facility] Comment on above: Order Comment: Speci men Type: BLOOD SPECIMEN Ordering Facility: [facility] Address: [address] [place] [address] Performed By: #### 5 8410-2 #### [facility] CLIA [id number] [address] [place] [address] [place] MCHC (RBC) [Mass/Vol] 34.0 g/dL Normal 30.5-36.0 [facility] Comment on above: Order Comment: Speci men Type: BLOOD SPECIMEN Ordering Facility: [facility] Address: [address] [place] [address] Performed By: #### 5 8410-2 #### [facility] CLIA [id number] [address] [place] [address] [place] MCV (RBC) [Entitic vol] 95.0 fL Normal 80.0-100.0 [facility] Comment on above: Order Comment: Speci men Type: BLOOD SPECIMEN Ordering Facility: [facility] Address: [address] [place] [address] Performed By: #### 5 8410-2 #### [facility] [place] [id number] [address] [place] [address] [place] Nucleated RBC (Bld) [#/Vol] 10*3/uL Normal <0.01 [facility] Comment on above: Order Comment: Speci men Type: BLOOD SPECIMEN Ordering Facility: [facility] Address: [address] [place] [address] Performed By: #### 5 8410-2 #### [facility] CLIA [id number] [address] [place] [address] [place] Platelet mean volume (Bld) [Entitic vol] 9.6 fL Normal 9.0-12.7 [facility] Comment on above: Order Comment: Speci men Type: BLOOD SPECIMEN Ordering Facility: [facility] Address: [address] [place] [address] Performed By: #### 5 8410-2 #### [facility] CLIA [id number] [address] [place], [place] [address] [place] Platelets (Bld) [#/Vol] 159 10*3/uL Normal 150-400 [facility] Comment on above: Order Comment: Speci men Type: BLOOD SPECIMEN Ordering Facility: [facility] Address: [address] [place] [address] Performed By: #### 5 8410-2 #### [facility] CLIA [id number] [address] [place], [place] [address] [place] RBC (Bld) [#/Vol] 3.59 10*6/uL Low 4.20-6.00 [facility] Comment on above: Order Comment: Speci men Type: BLOOD SPECIMEN Ordering Facility: [facility] Address: [address] [place] [address] Performed By: #### 5 8410-2 #### [facility] IA [id number] [address] [place], [place] [address] [place] WBC (Bld) [#/Vol] 8.72 10*3/uL Normal 3.70-11.00 [facility] Comment on above: Order Comment: Speci men Type: BLOOD SPECIMEN Ordering Facility: [facility] Address: [address] [place] [address] Performed By: #### 5 8410-2 #### [facility] IA [id number] [address] [place], [place] [address] [facility] OF [place] NURSING PROGon 12-09-2022 NURSING PROG HNO ID: [id number] Author: Abdias Pemberton RN Service: Nursing Author Type: Registered Nurse Type: Nursing Progress Note Filed: 12/09/2022 7:21 PM Note Text: 12/09/2022 0826: hydromorphone PICK UP DRIVER rate varied. Patient rating pain 8/10 at this time stating oh, its much better than yesterday . 0931: Patient working with PT at this time 1035: Patient resting/sleeping comfortably in bed at this time. 1200: fentaNYL PICK UP DRIVER ordered. 1345: Patient ambulating in the hallway with nursing staff and . 1402: Patient at radiology for post-op XR 1406: Hydromorphone PICK UP DRIVER discontinued. While discontinuing the hydromorphone PICK UP DRIVER, patient made several comments about unused hydromorphone, I can take that medication off your hands. Patient educated that the medication will be properly wasted per protocol. 1407: fentaNYL PICK UP DRIVER started and Hydromorphone properly wasted per protocol. [...] Can't you increase my setting on the PICK UP DRIVER because I had better pain relief with the Dilaudid pump because I could press the button more frequent? Can you increase the pump settings? [facility] THERAPY NTon 12-09-2022 THERAPY NT HNO ID: [id number] Author: Abdias Crooks OT/L Service: Occupational Therapy Author Type: Occupational Therapist Type: Therapy (PT/OT/Speech/Resp) Filed: 12/09/2022 3:30 PM Note Text: Occupational Therapy Evaluation SERVICE DATE: 12/09/2022 SERVICE TIME: 1438 to 1502 ROOM: [place] [address] Total Joint Replacement Discharge Readiness: Cleared from [...] slower than expec (more content not included)... [facility] THERAPY NT HNO ID: [id number] Author: Hannah Mota PT, DPT Service: Physical Therapy Author Type: Physical Therapist Type: Therapy (PT/OT/Speech/Resp) Filed: 12/09/2022 10:06 AM Note Text: Physical Therapy Treatment SERVICE DATE: 12/09/2022 SERVICE TIME: 930 to 954 ROOM: [place] [address] Total Joint Replacement Discharge Readiness: Cleared from Physical Therapy Recommended Discharge Disposition: Home Anticipated Discharge Needs: Physical Assist at Home Physical Assist at Home for: Cleaning, Laundry, Meals, Stairs, Safety Recommended Discharge Equipment: No equipment needs anticipated PT 6 Clicks Score: 24 Pt agreeable to participate. Reports slight improvement in pain compared to yesterday but relies highly on PICK UP DRIVER. Pt able to ambulate around unit with [...] Difficulty walking-musculoskeleta l Interventions Provided: Therapeutic Activity (52939), Gait Training (71867) Therapeutic Activity (93322) Treatment Minutes: 10 $ Therapeutic Activity (03054) Billed Units: 1 unit Gait Training (50580) Treatment Minutes: 14 $ Gait Training (16139) Billed Units: 1 unit Training AND Education [...] for this therapy (more content not included)... [facility] XR LUMBAR 2V AP/LATon 2022 XR [...] IMPRESSION: Postoperative and degenerative changes as described. Investment Broker: COURTNEY Transcribe Date/Time: Dec 09 2022 3:39P Dictated by : DONNY WOO DO This examination was interpreted and the report reviewed and electronically signed by: DONNY WOO DO on Dec 09 2022 3:42PM EST [id number] Normal [facility] Basic metabolic 2000 panelon 12-08-2022 Anion gap [Moles/Vol] 7 mmol/L Low 9-18 [facility] Comment on above: Order Comment: Speci men Type: BLOOD SPECIMEN Ordering Facility: [facility] Address: [address] [place] [address] Performed By: #### 2 4321-2 #### [facility] CLIA [id number] [address] [place] [address] [place] Calcium [Mass/Vol] 8.2 mg/dL Low 8.5-10.2 [facility] Comment on above: Order Comment: Speci men Type: BLOOD SPECIMEN Ordering Facility: [facility] Address: [address] [place] [address] Performed By: #### 2 4321-2 #### [facility] CLIA [id number] [address] [place] [address] [place] Chloride [Moles/Vol] 106 mmol/L High 97-105 [place] Comment on above: Order Comment: Speci men Type: BLOOD SPECIMEN Ordering Facility: [facility] Address: [address] [place] [address] Performed By: #### 2 4321-2 #### [facility] CLIA [id number] [address] [place], [place] [address] [place] CO2 [Moles/Vol] 28 mmol/L Normal 22-30 [facility] Comment on above: Order Comment: Speci men Type: BLOOD SPECIMEN Ordering Facility: [facility] Address: [address] [place] [address] Performed By: #### 2 4321-2 #### [facility] CLIA [id number] [address] [place] [address] [place] Creatinine [Mass/Vol] 1.35 mg/dL High 0.73-1.22 [facility] Comment on above: Order Comment: Shahrzad dumont Type: BLOOD SPECIMEN Ordering Facility: [facility] Address: [address] [place] [address] Performed By: #### 2 4321-2 #### [facility] CLIA [id number] [address] [place] [address] [place] Creatinine and Glomerular filtration rate.predicted panel (S/P/Bld) 60 mL/min/1.73m??? Normal >=60 [facility] Comment on above: Order Comment: Shahrzad dumont Type: BLOOD SPECIMEN Ordering Facility: [facility] Address: [address] [place] [address] Result Comment: Leah mated Glomerular Filtration Rate [...] GFR. Performed By: #### 2 4321-2 #### [facility] CLIA [id number] [address] [place], [place] [address] [place] Glucose [Mass/Vol] 139 mg/dL High 74-99 [facility] Comment on above: Order Comment: Shahrzad dumont Type: BLOOD SPECIMEN Ordering Facility: [facility] Address: [address] [place] [address] Result Comment: The [place] Diabetes Association (ADA) provides guidance for cutoff [...] Standards of Medical Care in Diabetes 2016, [place] [employer]. Diabetes Care. 2016.39(Suppl 1). Performed By: #### 2 4321-2 #### [facility] CLIA [id number] [address] [place] [address] [place] Potassium [Moles/Vol] 3.7 mmol/L Normal 3.7-5.1 [facility] Comment on above: Order Comment: Speci men Type: BLOOD SPECIMEN Ordering Facility: [facility] Address: [address] [place] [address] Performed By: #### 2 4321-2 #### [facility] CLIA [id number] [address] [place] [address] [place] Sodium [Moles/Vol] 141 mmol/L Normal 136-144 [facility] Comment on above: Order Comment: Speci men Type: BLOOD SPECIMEN Ordering Facility: [facility] Address: [address] [place] [address] Performed By: #### 2 4321-2 #### [facility] CLIA [id number] [address] [place] [address] [place] Urea nitrogen [Mass/Vol] 23 mg/dL Normal 9-24 [facility] Comment on above: Order Comment: Speci men Type: BLOOD SPECIMEN Ordering Facility: [facility] Address: [address] [place] [address] Performed By: #### 2 4321-2 #### [facility] CLIA [id number] [address] [place] [address] OF [place] CASE MGT INIT ASSESon 2022 CASE MGT INIT ASSES HNO ID: [id number] Author: Gloria Toro RN Service: ? Author Type: Registered Nurse Type: Care Mgt Initial Assessment Filed: 12/08/2022 8:48 AM Note Text: CARE MANAGEMENT: ASSESSMENT AND DISCHARGE PLAN SERVICE DATE: December 08, 2022 SERVICE TIME: 8:46 am PCP: Blayne Isabel MD Primary Contact: Extended Emergency Contact Information Primary Emergency Contact: Darryl Simental Address: [address] [place] [address] [place] Mobile Relation: Spouse [...] to go home, General wellness, Less pain Hayes of Choice Explained: Hayes of Choice Given: No Reason Not Given: No placements necessary Discharge Planning Participant(s): Patient Patient/Family Comments: Caregiver Assessment: Transport at Discharge: Needs Prior to Discharge: Needs Prior to Discharge: To Be Determined;OT/PT Evaluation Post-Acute Discharge Plan: CM met with patient at the bedside this a.m., has rollator, cane AND walker, says will be driving him home at [place] and can assist him as well, per eval, no further skilled PT / OT needed at [place]. CM Department will continue to follow until [place]. SIGNATURE: Gloria Toro RN PATIENT NAME: Sukhdeep Simental DATE: December 08, 2022 TIME: 8:46 AM CONTACT #: [phone] [facility] CBC panel Auto (Bld)on 12-08 Erythrocyte distribution width (RBC) [Ratio] 12.8 % Normal 11.5-15.0 [facility] Comment on above: Order Comment: Shahrzad dumont Type: BLOOD SPECIMEN Ordering Facility: [facility] Address: [address] [place] [address] Performed By: #### 5 8410-2 #### [facility] CLIA [id number] [address] [place] [address] [place] Hematocrit (Bld) [Volume fraction] 34.8 % Low 39.0-51.0 [facility] Comment on above: Order Comment: Shahrzad dumont Type: BLOOD SPECIMEN Ordering Facility: [facility] Address: [address] [place] [address] Performed By: #### 5 8410-2 #### [facility] IA [id number] [address] [place] [address] [place] Hemoglobin (Bld) [Mass/Vol] 11.7 g/dL Low 13.0-17.0 [facility] Comment on above: Order Comment: Speci men Type: BLOOD SPECIMEN Ordering Facility: [facility] Address: [address] [place] [address] Performed By: #### 5 8410-2 #### [facility] IA [id number] [address] [place] [address] [place] MCH (RBC) [Entitic mass] 31.8 pg Normal 26.0-34.0 [facility] Comment on above: Order Comment: Speci men Type: BLOOD SPECIMEN Ordering Facility: [facility] Address: [address] [place] [address] Performed By: #### 5 8410-2 #### [facility] IA [id number] [address] [place] [address] [place] MCHC (RBC) [Mass/Vol] 33.6 g/dL Normal 30.5-36.0 [facility] Comment on above: Order Comment: Speci men Type: BLOOD SPECIMEN Ordering Facility: [facility] Address: [address] [place] [address] Performed By: #### 5 8410-2 #### [facility] IA [id number] [address] [place] [address] [place] MCV (RBC) [Entitic vol] 94.6 fL Normal 80.0-100.0 [facility] Comment on above: Order Comment: Speci men Type: BLOOD SPECIMEN Ordering Facility: [facility] Address: [address] [place] [address] Performed By: #### 5 8410-2 #### [facility] IA [id number] [address] [place] [address] [place] Nucleated RBC (Bld) [#/Vol] 10*3/uL Normal <0.01 [facility] Comment on above: Order Comment: Speci men Type: BLOOD SPECIMEN Ordering Facility: [facility] Address: [address] [place] [address] Performed By: #### 5 8410-2 #### [facility] CLIA [id number] [address] [place] [address] [place] Platelet mean volume (Bld) [Entitic vol] 9.4 fL Normal 9.0-12.7 [facility] Comment on above: Order Comment: Speci men Type: BLOOD SPECIMEN Ordering Facility: [facility] Address: [address] [place] [address] Performed By: #### 5 8410-2 #### [facility] CLIA [id number] [address] [place] [address] [place] Platelets (Bld) [#/Vol] 162 10*3/uL Normal 150-400 [facility] Comment on above: Order Comment: Speci men Type: BLOOD SPECIMEN Ordering Facility: [facility] Address: [address] [place] [address] Performed By: #### 5 8410-2 #### [facility] CLIA [id number] [address] [place] [address] [place] RBC (Bld) [#/Vol] 3.68 10*6/uL Low 4.20-6.00 [facility] Comment on above: Order Comment: Speci men Type: BLOOD SPECIMEN Ordering Facility: [facility] Address: [address] [place] [address] Performed By: #### 5 8410-2 #### [facility] CLIA [id number] [address] [place] [address] [place] WBC (Bld) [#/Vol] 7.95 10*3/uL Normal 3.70-11.00 [facility] Comment on above: Order Comment: Speci men Type: BLOOD SPECIMEN Ordering Facility: [facility] Address: [address] [place] [address] Performed By: #### 5 8410-2 #### [facility] CLIA [id number] [address] [place] [address] [place] CONSULTon 12-08-2022 CONSULT HNO ID: [id number] Author: Lulu Oviedo MD Service: General Internal [...] Recent Labs 12/08 (more content not included)... [facility] NURSING PROGon 12-08-2022 NURSING PROG HNO ID: [id number] Author: Abdias Pemberton, RN Service: Nursing Author [...] notified of the patient's increased pain after PICK UP DRIVER was DC'ed earlier and transitioned to PO medications. Hydromorphone PICK UP DRIVER reordered per Dr. Mathew. 1729: Hydromorphone PICK UP DRIVER restarted. 1735: Patient assisted by nursing staff to bed and states that his pain has decreased. Patient resting comfortably in bed at this time. 1900: Patient resting comfortably in bed at this time. [facility] THERAPY NTon 12-08-2022 THERAPY NT HNO ID: [id number] Author: Taylor Montoya OTR/Kelly Service: Occupational Therapy Author Type: Occupational Therapist Type: Therapy (PT/OT/Speech/Resp) Filed: 12/08/2022 12:35 PM Note Text: OCCUPATIONAL THERAPY MISSED VISIT SERVICE DATE: 12/08/2022 SERVICE TIME: 1233 to 1233 ROOM: [place] [address] Patient not seen due to Refused Treatment. Patient having a significant amount of pain. Offered patient option of working with OT tomorrow. Pt would prefer OT evaluation tomorrow. SIGNATURE: URSULA Glynn/Kelly PATIENT NAME: Sukhdeep Simental DATE: December 08, 2022 TIME: 12:34 PM [facility] THERAPY NT HNO ID: [id number] Author: Jean-Pierre Lutz, PT, DPT Service: Physical Therapy Author Type: Physical Therapist Type: Therapy (PT/OT/Speech/Resp) Filed: 12/08/2022 8:44 AM Note Text: Physical Therapy Evaluation SERVICE DATE: 12/08/2022 SERVICE TIME: 807 to 830 ROOM: [place] [address] Cleared from Physical Therapy Recommended Discharge Disposition: [...] Weakness (generalized) Interventions Provided: Evaluation, Gait Training (36941) $ Evaluation-Low (02176) Billed Units: 1 unit Gait Training (45394) Treatment Minutes: 8 $ Gait Training (89291) Billed Units: 1 unit Training AND Education [...] DATE: December 08, 2022 TIME: 8:44 AM [facility] ANES POSTPROC EVALon 023 ANES POSTPROC EVAL HNO ID: [id number] Author: Ankit Orlando MD Service: Anesthesiology Author Type: Anesthesiologist Type: Anesthesia Postprocedure Evaluation Filed: 12/07/2022 3:37 PM Note Text: POST ANESTHESIA EVALUATION NOTE : 1965 Procedure Summary Date: 12/07/22 Room / Location: [place] [address] / OR Anesthesia Start: 737 Anesthesia Stop: [...] 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 Patient / Responsible Alliance Party agrees to proceed: yes Patient / [...] December 07, 2022 TIME: 7:01 AM CSN: [id number] [facility] BRIEF OP NOTon 12-07-2022 BRIEF OP NOT HNO ID: [id number] Author: Thomas Mathew MD Service: Neurosurgery Author Type: Physician Type: Brief Op Note Filed: 12/07/2022 12:49 PM Note Text: BRIEF OPERATIVE / PROCEDURE NOTE LOG ID: [id number] SURGERY/PROCEDURE DATE: 12/07/2022 INCISION/PROCEDURE START TIME: 8:09 AM INCISION CLOSE/PROCEDURE END TIME: 12:34 PM SURGEON(S)/PROCEDURALI ST(S) AND ELECTRIC ENGINE MECHANIC(S): Surgeon(s) and Role: * Thomas Mathew MD [...] DATE: December 07, 2022 TIME: 12:31 PM [facility] NURSING PROGon 12-07-2022 NURSING PROG HNO ID: [id number] Author: Livia Calix RN Service: ? Author Type: Registered Nurse Type: Nursing Progress Note Filed: 12/07/2022 2:48 PM Note Text: Transfer Note: PATIENT NAME: Sukhdeep Simental Patient Location: [address]/[place] [address] Room: [place] [address] Patient transferred into room/unit 503-2 in stable condition. Patient educated on use of call light, fall precautions, and incentive spirometer. No futher actions taken at this time. Will continue to monitor and check with patient. [facility] OPERATIVE NOon 12-07-2022 OPERATIVE NO HNO ID: [id number] Author: Thomas Mathew MD Service: Neurosurgery Author Type: Physician Type: Operative Report Filed: 12/07/2022 3:54 PM Note Text: OPERATIVE/PROCEDURE REPORT LOG ID: [id number] SURGERY/PROCEDURE DATE: 12/07/2022 INCISION/PROCEDURE START TIME: 8:09 AM INCISION CLOSE/PROCEDURE END TIME: 12:34 PM SURGEON(S)/PROCEDURALI ST(S) AND ELECTRIC ENGINE MECHANIC(S): Surgeon(s) and Role: * Thomas Mathew MD [...] and sized at a 10 mm. The [facility] system was the instrumentation system used. Local [...] drill was used to make a small area relief pilot hole. The gear shift along with [...] Implant Name Type Inv. Item Serial No. Network Specialist Lot No. LRB No. Used Action VITOSS [id number] BIOACTIVE BONE GRAFT SUBSTITUTE 5.0CUB CM Implant [place] [id number] N/A 1 Implanted CAGE TRITANIUM 6D [id number] SPINAL STERILE LATEX FREE LUMBAR POSTERIOR - [id number] Implant CAGE TRITANIUM 6D [id number] SPINAL STERILE LATEX FREE LUMBAR POSTERIOR [place] SPINE T9H8 N/A 1 Implanted CAGE TRITANIUM 6D [id number] SPINAL STERILE LATEX FREE LUMBAR POSTERIOR - [id number] Implant CAGE TRITANIUM 6D [id number] (more content not included)... [facility] XR LUMBAR 2V AP/LATon 2022 XR LUMBAR 2V AP/LAT * * *Final Report* * * DATE OF EXAM: Dec 07 2022 12:52PM DI [facility] - XR LUMBAR 2V AP/LAT / PROCEDURE [...] examination for surgical planning and documentation. . Investment Broker: PSCB Transcribe Date/Time: Dec 07 2022 3:13P Dictated by : DONNY WOO DO This examination was interpreted and the report reviewed and electronically signed by: DONNY WOO DO on Dec 07 2022 3:15PM EST [id number] [facility] XR LUMBAR 2V AP/LAT * * *Final Report* * * DATE OF EXAM: Dec 07 2022 11:33AM [place] [id number] - XR LUMBAR 2V AP/LAT / PROCEDURE [...] Intraoperative examination for surgical planning and documentation. Investment Broker: COURTNEY Transcribe Date/Time: Dec 07 2022 2:43P Dictated by : DONNY WOO DO This examination was interpreted and the report reviewed and electronically signed by: DONNY WOO DO on Dec 07 2022 2:46PM EST [id number] [facility] XR LUMBAR 2V AP/LAT * * [...] examination for surgical planning and documentation. . Investment Broker: [email or web address] Transcribe Date/Time: Dec 07 2022 2:37P Dictated by : DONNY WOO DO This examination was interpreted and the report reviewed and electronically signed by: DONNY WOO DO on Dec 07 2022 2:40PM EST [id number] [facility] 11-29-2022 [facility] Telephone (NIQ) SUKHDEEP SIMENTAL ([id number]) 1965 M Date Time Provider Department 11/29/22 THOMAS MATHEW [facility] During your visit today, we recorded the following information about you: Moriah Ferguson 11/29/2022 9:50 AM Signed Patient called regarding a C/9 being filed for his Dec 07 surgery. He spoke to his [facility] contact and they said nothing has been filed yet. Please update patient. Juan Pablo Nova RN 11/29/2022 10:27 AM Signed C9 sent to provider for signature. Awaiting signature. Juan Pablo Nova RN 11/29/2022 12:20 PM Signed Signed C9 sent to [facility] and [facility]. Faxed verifications received. Kathe Lezama 12/05/2022 11:01 AM Signed Patient calling asking for an update on his C9 and surgery approval. He would like to know if nurse can reach out to [facility] for an update and let him know. Juan Pablo Nova RN 12/05/2022 11:43 AM Signed Called Sunita and discussed patient's upcoming surgery. Per Sunita she did already explain to the patient that the information was submitted to the [employer] for review and does take up to 5 business days for a decision. Juan Pablo Nova RN 12/05/2022 1:16 PM Signed Spoke with patient. Informed case is still on for Saturday and that I spoke with Sunita. Patient appreciative of call. Ekaterina Rondon 12/06/2022 11:34 AM Addendum Sunita called from [facility], regarding patient surgery tomorrow. Surgery has been approved based on what it was shown on the medical record. Sunita wanted a called back # [phone] Ekaterina Rondon 12/06/2022 11:35 AM Signed [facility]. Scan in patient chart [...] Date Reviewed: 11/21/2022 Reviewed by: Maite Galloway APRN.SUPPLY CONTROLLER - Fully Assessed Reason for Visit: Bwc [...] by JUAN PABLO NOVA on 11/29/22 Normal [facility] CBC W Auto Differential pane l (Bld)on 11-21-2022 Basophils (Bld) [#/Vol] 0.04 10*3/uL Normal <0.11 [facility] Comment on above: Order Comment: Speci men Type: BLOOD SPECIMENOrdering Facility: [facility] Address: [address] [address] Performed By: #### 5 7021-8 ####[facility] LABIA [id number] [place] [address] [place] Basophils/100 WBC (Bld) 0.8 % Normal [facility] Comment on above: Order Comment: Speci men Type: BLOOD SPECIMENOrdering Facility: [facility] Address: [address] [address] Performed By: #### 5 7021-8 ####[facility] LABIA [id number] [place] Differential cell count method Nom (Bld) Auto Normal [facility] Comment on above: Order Comment: Speci men Type: BLOOD SPECIMENOrdering Facility: [facility] Address: [address] [place] [address] Performed By: #### 5 7021-8 ####[facility] LABCLIA [id number] [place] [address] [place] Eosinophils (Bld) [#/Vol] 0.11 10*3/uL Normal <0.46 [facility] Comment on above: Order Comment: Speci men Type: BLOOD SPECIMENOrdering Facility: [facility] Address: [address] [place] [address] Performed By: #### 5 7021-8 ####[facility] LABCLIA [id number] [address] [place] Eosinophils/100 WBC (Bld) 2.1 % Normal [facility] Comment on above: Order Comment: Speci men Type: BLOOD SPECIMENOrdering Facility: [facility] Address: [address] [place], [place] [address] Performed By: #### 5 7021-8 ####[facility] LABCLIA [id number] [place] [address] [place] Erythrocyte distribution width (RBC) [Ratio] 12.4 % Normal 11.5-15.0 [facility] Comment on above: Order Comment: Speci men Type: BLOOD SPECIMENOrdering Facility: [facility] Address: [address] [place], [place] [address] Performed By: #### 5 7021-8 ####[facility] LABCLIA [id number] [place] [address] [place] Hematocrit (Bld) [Volume fraction] 42.9 % Normal 39.0-51.0 [facility] Comment on above: Order Comment: Speci men Type: BLOOD SPECIMENOrdering Facility: [facility] Address: [address] Performed By: #### 5 7021-8 ####[facility] LABCLIA [id number] [place] [address] [place] Hemoglobin (Bld) [Mass/Vol] 14.5 g/dL Normal 13.0-17.0 [facility] Comment on above: Order Comment: Speci men Type: BLOOD SPECIMENOrdering Facility: [facility] Address: [address] [place], [place] [address] Performed By: #### 5 7021-8 ####[facility] LABCLIA [id number] [place] [address] [place] Immature granulocytes (Bld) [#/Vol] 10*3/uL Normal <0.10 [facility] Comment on above: Order Comment: Speci men Type: BLOOD SPECIMENOrdering Facility: [facility] Address: [address] [place], [place] [address] Performed By: #### 5 7021-8 ####[facility] LABCLIA [id number] [place] [address] [place] Immature granulocytes/100 WBC (Bld) 0.4 % Normal [facility] Comment on above: Order Comment: Speci men Type: BLOOD SPECIMENOrdering Facility: [facility] Address: [address] [place], [place] [address] Performed By: #### 5 7021-8 ####[facility] LABCLIA [id number] [place] [address] [place] Lymphocytes (Bld) [#/Vol] 1.45 10*3/uL Normal 1.00-4.00 [facility] Comment on above: Order Comment: Speci men Type: BLOOD SPECIMENOrdering Facility: [facility] Address: [address] [place], [place] [address] Performed By: #### 5 7021-8 ####[facility] LABCLIA [id number] [address] [place] Lymphocytes/100 WBC (Bld) 27.4 % Normal [facility] Comment on above: Order Comment: Speci men Type: BLOOD SPECIMENOrdering Facility: [facility] Address: [address] [place] [address] Performed By: #### 5 7021-8 ####[facility] LABIA [id number] [address] MCH (RBC) [Entitic mass] 31.7 pg Normal 26.0-34.0 [facility] Comment on above: Order Comment: Speci men Type: BLOOD SPECIMENOrdering Facility: [facility] Address: [address] [place] [address] Performed By: #### 5 7021-8 ####[facility] LABIA [id number] [address] STATES [facility] MCHC (RBC) [Mass/Vol] 33.8 g/dL Normal 30.5-36.0 [facility] Comment on above: Order Comment: Speci men Type: BLOOD SPECIMENOrdering Facility: [facility] Address: [address] [place], [place] [address] Performed By: #### 5 7021-8 ####[facility] LABIA [id number] [address] [place] MCV (RBC) [Entitic vol] 93.7 fL Normal 80.0-100.0 [facility] Comment on above: Order Comment: Speci men Type: BLOOD SPECIMENOrdering Facility: [facility] Address: [address] [place], [place] [address] Performed By: #### 5 7021-8 ####[facility] LABIA [id number] [place] [address] [place] Monocytes (Bld) [#/Vol] 0.49 10*3/uL Normal <0.87 [facility] Comment on above: Order Comment: Speci men Type: BLOOD SPECIMENOrdering Facility: [facility] Address: [address] Performed By: #### 5 7021-8 ####[facility] LABIA [id number] [place] [address] [place] Monocytes/100 WBC (Bld) 9.2 % Normal [facility] Comment on above: Order Comment: Speci men Type: BLOOD SPECIMENOrdering Facility: [facility] Address: [address] Performed By: #### 5 7021-8 ####[facility] LABIA [id number] [place] [address] [place] Neutrophils (Bld) [#/Vol] 3.19 10*3/uL Normal 1.45-7.50 [facility] Comment on above: Order Comment: Speci men Type: BLOOD SPECIMENOrdering Facility: [facility] Address: [address] Performed By: #### 5 7021-8 ####[facility] LABIA [id number] [place] [address] [place] Neutrophils/100 WBC (Bld) 60.1 % Normal [facility] Comment on above: Order Comment: Speci men Type: BLOOD SPECIMENOrdering Facility: [facility] Address: [address] [place] [address] Performed By: #### 5 7021-8 ####[facility] LABIA [id number] [place] [address] [place] Nucleated RBC (Bld) [#/Vol] 10*3/uL Normal <0.01 [facility] Comment on above: Order Comment: Speci men Type: BLOOD SPECIMENOrdering Facility: [facility] Address: [address] [place] [address] Performed By: #### 5 7021-8 ####[facility] LABIA [id number] [place] [address] [place] Nucleated RBC/100 WBC (Bld) [Ratio] 0.0 /100 WBC Normal [facility] Comment on above: Order Comment: Speci men Type: BLOOD SPECIMENOrdering Facility: [facility] Address: [address] [place] [address] Performed By: #### 5 7021-8 ####[facility] LABIA [id number] [place] [address] [place] Platelet mean volume (Bld) [Entitic vol] 9.4 fL Normal 9.0-12.7 [facility] Comment on above: Order Comment: Speci men Type: BLOOD SPECIMENOrdering Facility: [facility] Address: [address] [place] [address] Performed By: #### 5 7021-8 ####[facility] LABIA [id number] [place] [address] [place] Platelets (Bld) [#/Vol] 222 10*3/uL Normal 150-400 [facility] Comment on above: Order Comment: Speci men Type: BLOOD SPECIMENOrdering Facility: [facility] Address: [address] [place] [address] Performed By: #### 5 7021-8 ####[facility] LABIA [id number] [place] [address] [place] RBC (Bld) [#/Vol] 4.58 10*6/uL Normal 4.20-6.00 [facility] Comment on above: Order Comment: Speci men Type: BLOOD SPECIMENOrdering Facility: [facility] Address: [address] [place] [address] Performed By: #### 5 7021-8 ####[facility] LABIA [id number] [place] [address] [place] WBC (Bld) [#/Vol] 5.30 10*3/uL Normal 3.70-11.00 [facility] Comment on above: Order Comment: Speci men Type: BLOOD SPECIMENOrdering Facility: [facility] Address: [address] [place] [address] Performed By: #### 5 7021-8 ####[facility] LABCLIA [id number] [address] STATES OF [facility] CONFIRM BLOOD TYPEon 023 ABO A Normal [facility] Comment on above: Order Comment: Speci men Type: BLOOD SPECIMENOrdering Facility: [facility] Address: [address] [place] [address] Performed By: #### C ONABO ####[facility] BLO[facility] BANKCLIA [id number] [place] [address] [place] Rh Nom (Bld) Negative Normal [facility] Comment on above: Order Comment: Speci men Type: BLOOD SPECIMENOrdering Facility: [facility] Address: [address] [place] [address] Performed By: #### C ONABO ####[facility] BLOOD BANKCLIA [id number] [place] [address] [place] Comprehensive metabolic 2000 panelon 11-21-2022 Albumin [Mass/Vol] 4.3 g/dL Normal 3.9-4.9 [facility] Comment on above: Order Comment: Speci men Type: BLOOD SPECIMENOrdering Facility: [facility] Address: [address] [place] [address] Performed By: #### 2 4323-8 ####[facility] LABCLIA [id number] [place] [address] [place] ALP [Catalytic activity/Vol] 68 U/L Normal 38-113 [facility] Comment on above: Order Comment: Speci men Type: BLOOD SPECIMENOrdering Facility: [facility] Address: [address] [place] [address] Performed By: #### 2 4323-8 ####[facility] LABCLIA [id number] [address] [place] ALT [Catalytic activity/Vol] 16 U/L Normal 10-54 [facility] Comment on above: Order Comment: Speci men Type: BLOOD SPECIMENOrdering Facility: [facility] Address: [address] [place] [address] Performed By: #### 2 4323-8 ####[facility] LABCLIA [id number] [place] [address] [place] Anion gap [Moles/Vol] 10 mmol/L Normal 9-18 [facility] Comment on above: Order Comment: Speci men Type: BLOOD SPECIMENOrdering Facility: [facility] Address: [address] [place] [address] Performed By: #### 2 4323-8 ####[facility] LABCLIA [id number] [place] [address] [place] AST [Catalytic activity/Vol] 21 U/L Normal 14-40 [facility] Comment on above: Order Comment: Speci men Type: BLOOD SPECIMENOrdering Facility: [facility] Address: [address] [place] [address] Performed By: #### 2 4323-8 ####[facility] LABCLIA [id number] [place] [address] [place] Bilirubin [Mass/Vol] 0.5 mg/dL Normal 0.2-1.3 [facility] Comment on above: Order Comment: Speci men Type: BLOOD SPECIMENOrdering Facility: [facility] Address: [address] [place] [address] Performed By: #### 2 4323-8 ####[facility] LABCLIA [id number] [place] [address] [place] Calcium [Mass/Vol] 9.9 mg/dL Normal 8.5-10.2 [facility] Comment on above: Order Comment: Speci men Type: BLOOD SPECIMENOrdering Facility: [facility] Address: [address] Performed By: #### 2 4323-8 ####[facility] LABCLIA [id number] [place] [address] [place] Chloride [Moles/Vol] 106 mmol/L High 97-105 [facility] Comment on above: Order Comment: Speci men Type: BLOOD SPECIMENOrdering Facility: [facility] Address: [address] [place] [address] Performed By: #### 2 4323-8 ####[facility] LABCLIA [id number] [place] [address] [place] CO2 [Moles/Vol] 27 mmol/L Normal 22-30 [facility] Comment on above: Order Comment: Speci men Type: BLOOD SPECIMENOrdering Facility: [facility] Address: [address] [place], [place] [address] Performed By: #### 2 4323-8 ####[facility] LABCLIA [id number] [place] [address] [place] Creatinine [Mass/Vol] 1.22 mg/dL Normal 0.73-1.22 [facility] Comment on above: Order Comment: Speci men Type: BLOOD SPECIMENOrdering Facility: [facility] Address: [address] Performed By: #### 2 4323-8 ####[facility] LABCLIA [id number] [place] [address] [place] Creatinine and Glomerular filtration rate.predicted panel (S/P/Bld) 68 mL/min/1.73m??? Normal >=60 [facility] Comment on above: Order Comment: Speci men Type: BLOOD SPECIMENOrdering Facility: [facility] Address: [address] [id number] Result Comment: Leah mated Glomerular Filtration Rate [...] actual GFR. Performed By: #### 2 4323-8 ####[facility] LABCLIA [id number] [place] [address] [place] Glucose [Mass/Vol] 111 mg/dL High 74-99 [facility] Comment on above: Order Comment: Shahrzad dumont Type: BLOOD SPECIMENOrdering Facility: [facility] Address: [address] [address] Result Comment: The [place] Diabetes Association (ADA) provides guidance for cutoff [...] Standards of Medical Care in Diabetes 2016, [place] Diabetes Association. Diabetes Care. 2016.39(Suppl 1). Performed By: #### 2 4323-8 ####[facility] LABCLIA [id number] [place] [address] [place] Potassium [Moles/Vol] 4.2 mmol/L Normal 3.7-5.1 [facility] Comment on above: Order Comment: Shahrzad dumont Type: BLOOD SPECIMENOrdering Facility: [facility] Address: [address] [address] Performed By: #### 2 4323-8 ####[facility] LABCLIA [id number] [place] [address] [place] Protein [Mass/Vol] 7.0 g/dL Normal 6.3-8.0 [facility] Comment on above: Order Comment: Speci men Type: BLOOD SPECIMENOrdering Facility: [facility] Address: [address] [place] [address] Performed By: #### 2 4323-8 ####[facility] LABCLIA [id number] [place] [address] [place] Sodium [Moles/Vol] 143 mmol/L Normal 136-144 [facility] Comment on above: Order Comment: Speci men Type: BLOOD SPECIMENOrdering Facility: [facility] Address: [address] [place] [address] Performed By: #### 2 4323-8 ####[facility] LABIA [id number] [address] STATES OF [facility] Urea nitrogen [Mass/Vol] 22 mg/dL Normal 9-24 [facility] Comment on above: Order Comment: Speci men Type: BLOOD SPECIMENOrdering Facility: [facility] Address: [address] [place] [address] Performed By: #### 2 4323-8 ####[facility] LABIA [id number] [address] [place] XCC22ix 11-21-2022 ECG01 Ventricular Rate : 6 5 BPM Atrial Rate : 65 BPM P-R Interval : 180 ms QRS Duration : 98 ms Q-T Interval : 440 ms QTC Calculation(Bazett) : 457 ms Calculated P Blackburn : 0 degrees Calculated R Blackburn : -10 degrees Calculated T Blackburn : 49 degrees NORMAL SINUS RHYTHM NORMAL ECG Confirmed by SHANIA RESTREPO M.D. ([id number]) on 11/22/2022 12:00:34 PM NAME : SUKHDEEP SIMENTAL PID : [id number] : 1965 Gender : Male Race : ORD : Procedure Date : Nov 21 2022 10:59:49 Edit Date : Nov 22 2022 12:00:38 Diagnosis: NORMAL SINUS RHYTHM NORMAL ECG Confirmed by SHANIA RESTREPO M.D. ([id number]) on 11/22/2022 12:00:34 PM Test Reason : SURGERY Location : 545 : [facility] Overread By : SHANIA RESTREPO M.D. Edited By : SHANIA RESTREPO M.D. Referred By : THOMAS MATHEW Acquired by : Santiago DANIELLE [facility] HISTORY PHYSICALon HISTORY PHYSICAL HNO ID: [id number] Author: Maite Galloway APRN.SUPPLY CONTROLLER Service: ? Author Type: Nurse Practitioner Type: [...] pain. Skin: (more content not included)... Normal [facility] HbA1c (Bld)on 11-21-2022 Average glucose Estimated from glycated hemoglobin (Bld) [Mass/Vol] 111 mg/dL Normal [facility] Comment on above: Order Comment: Shahrzad dumont Type: BLOOD SPECIMENOrdering Facility: [facility] Address: [address] [address] Result Comment: eAG: (Estimated average glucose) is a calculated value from HgbA1c and is open claims representative of the average blood glucose level in the last 2-3 month period. Performed By: #### 5 5454-3 ####[facility] LABCLIA [id number] [place] [address] [place] HbA1c (Bld) [Mass fraction] 5.5 % Normal 4.3-5.6 [facility] Comment on above: Order Comment: Shahrzad dumont Type: BLOOD SPECIMENOrdering Facility: [facility] Address: [address] [address] Result Comment: [place] Diabetes Association guidelines indicate that patients with HgbA1c in the range 5.7-6.4% are at increased risk for development of diabetes, and intervention by lifestyle modification may be beneficial. HgbA1c greater or equal to 6.5% is considered diagnostic of diabetes. Performed By: #### 5 5454-3 ####[facility] LABCLIA [id number] [address] OF [place] TYPE AND SCREEN,30 DAYon ABO A Normal [facility] Comment on above: Order Comment: Speci men Type: BLOOD SPECIMENOrdering Facility: [facility] Address: [address] [place] [address] Performed By: #### T SCR30 ####[facility] BLOOD BANKCLIA [id number] [address] HISTORICAL AB SCR STATUS Negative Normal [facility] Comment on above: Order Comment: Speci men Type: BLOOD SPECIMENOrdering Facility: [facility] Address: [address] [place] [address] Performed By: #### T SCR30 ####[facility] BLOOD BANKCLIA [id number] [address] Rh Nom (Bld) Negative Normal [facility] Comment on above: Order Comment: Speci men Type: BLOOD SPECIMENOrdering Facility: [facility] Address: [address] [place] [address] Performed By: #### T SCR30 ####[facility] BLO[facility] BANKCLIA [id number] [address] ABD/PELVIS WO CONon 07-06 CT [...] by: OBIE TSE Date: 2022-07-06 13:19 Normal [facility] PTH INTACTon 06-12-2022 PTH, Intact 38 pg/mL Normal 15-65 [facility] Comment on above: Performed By: #### P T #### [facility] [address] [place] [address] Dr. Hugh Landis FERRITINon 06-11-2022 Ferritin [Mass/Vol] 96.0 ng/mL Normal 26.0-388.0 [facility] Comment on above: Performed By: #### P T #### [facility] [address] [place] [address] Dr. Hugh Landis HEMOGRAM AND PLATELon 2022 Hematocrit (Bld) [Volume fraction] 39.1 % Critically low 42.0-54.0 [facility] Comment on above: Performed By: #### H H #### [facility] [address] [place] [address] Dr. Hugh Landis Hemoglobin (Bld) [Mass/Vol] 13.3 g/dL Critically low 14.0-18.0 [facility] Comment on above: Performed By: #### H H #### [facility] [address] [place] [address] Dr. Hugh Landis MCH (RBC) [Entitic mass] 30.5 pg Normal 25.9-34.0 [facility] Comment on above: Performed By: #### H H #### [facility] [address] [place] [address] Dr. Hugh Landis MCHC (RBC) [Mass/Vol] 34.0 g/dL Normal 29.9-35.2 [facility] Comment on above: Performed By: #### H H #### [facility] [address] [place] [address] Dr. Hugh Landis MCV (RBC) [Entitic vol] 89.7 fL Normal 80.0-94.0 [facility] Comment on above: Performed By: #### H H #### [facility] [address] [place] [address] Dr. Hugh Landis PLT 230 103/ul Normal 150-450 [facility] Comment on above: Performed By: #### H H #### [facility] [address] [address] [address] Hugh Landis RBC 4.36 106/ul Critically low 4.70-6.10 [facility] Comment on above: Performed By: #### H H #### [facility] [address] [address] [address] Hugh Landis WBC 4.8 103/ul Normal 4.0-11.0 [facility] Comment on above: Performed By: #### H H #### [facility] [address] [place] [address] Dr. Hugh Landis IRON AND TIBCon 06-11-2022 % SATURATION 55.0 % Normal [facility] Comment on above: Performed By: #### P T #### [facility] [address] [place] [address] Dr. Hugh Landis Iron [Mass/Vol] 137.0 ug/dL Normal 65.0-175.0 [facility] Comment on above: Performed By: #### P T #### [facility] [address] [place] [address] Dr. Hugh Landis TIBC DIRECT 249.0 ug/dL Critically low 250.0-450.0 [facility] Comment on above: Performed By: #### P T #### [facility] [address] [place] [address] Dr. Hugh Landis MAGNESIUMon 06-11-2022 Magnesium [Mass/Vol] 1.9 mg/dL Normal 1.8-2.4 [facility] Comment on above: Performed By: #### P TT #### [facility] [address] [address] [address] Hugh Landis RENAL FUNCTION PANELon 06-11 Albumin [Mass/Vol] 3.5 g/dL Normal 3.4-5.0 [facility] Comment on above: Performed By: #### P TT #### [facility] [address] [place] [address] Dr. Hugh Landis Calcium [Mass/Vol] 9.5 mg/dL Normal 8.5-10.1 [facility] Comment on above: Performed By: #### P TT #### [facility] [address] [place] [address] Dr. Hugh Landis Chloride [Moles/Vol] 107 mmol/L Normal 98-107 The [facility] Comment on above: Performed By: #### P TT #### [facility] [address] [place] [address] Dr. Hugh Landis CO2 [Moles/Vol] 30.9 mmol/L Normal 21.0-32.0 [facility] Comment on above: Performed By: #### P TT #### [facility] [address] [place] [address] Dr. Hugh Landis Creatinine [Mass/Vol] 1.41 mg/dL Critically high 0.70-1.30 The [facility] Comment on above: Performed By: #### P TT #### [facility] [address] [place] [address] Dr. Hugh Landis EGFR-AF BARBADIAN >60 Normal >=60 [facility] Comment on above: Performed By: #### P TT #### [facility] [address] [place] [address] Dr. Hugh Landis EGFR-NON AF BARBADIAN 52 mL/min/1.73m2 Critically low >=60 The [facility] Comment on above: Performed By: #### P TT #### [facility] [address] [place] [address] Dr. Hugh Landis Glucose [Mass/Vol] 118 mg/dL Critically high 74-106 [facility] Comment on above: Performed By: #### P TT #### [facility] [address] [address] [address] Hugh Landis Phosphate [Mass/Vol] 3.0 mg/dL Normal 2.6-4.7 [facility] Comment on above: Performed By: #### P TT #### [facility] [address] [address] [address] Hugh Landis Potassium [Moles/Vol] 3.9 mmol/L Normal 3.5-5.1 [facility] Comment on above: Performed By: #### P TT #### [facility] [address] [place] [address] Dr. Hugh Landis Sodium [Moles/Vol] 143 mmol/L Normal 136-145 [facility] Comment on above: Performed By: #### P TT #### [facility] [address] [place] [address] Dr. Hugh Landis Urea nitrogen [Mass/Vol] 19.0 mg/dL Critically high 7.0-18.0 [facility] Comment on above: Performed By: #### P TT #### [facility] [address] [place] [address] Dr. Hugh Landis UA RANDOM W/MICROSCOPICon BACTERIA NONE SEEN Normal NONE SEEN [facility] Comment on above: Performed By: #### P T #### [facility] [address] [place] [address] Dr. Hugh Landis Bilirubin Ql (U) Negative Normal NEGATIVE [facility] Comment on above: Performed By: #### P T #### [facility] [address] [place] [address] Dr. Hugh Landis CAST NONE SEEN Normal NONE SEEN [facility] Comment on above: Performed By: #### P T #### [facility] [address] [place] [address] Dr. Hugh Landis Clarity (U) CLEAR Normal CLEAR [facility] Comment on above: Performed By: #### P T #### [facility] [address] [place] [address] Dr. Hugh Landis Color (U) YELLOW Normal YELLOW The [facility] Comment on above: Performed By: #### P T #### [facility] [address] [place] [address] Dr. Hugh Landis Crystals LM Nom (Urine sed) NONE SEEN Normal NONE SEEN [facility] Comment on above: Performed By: #### P T #### [facility] [address] [place] [address] Dr. Hugh Landis Epithelial cells LM Ql (Urine sed) FEW Abnormal NONE SEEN /RARE The [facility] Comment on above: Performed By: #### P T #### [facility] [address] [place] [address] Dr. Hugh Landis Glucose Ql (U) Negative Normal NEGATIVE [facility] Comment on above: Performed By: #### P T #### [facility] [address] [place] [address] Dr. Hugh Landis Hemoglobin Ql (U) Negative Normal NEGATIVE [facility] Comment on above: Performed By: #### P T #### [facility] [address] [place] [address] Dr. Hugh Landis Ketones Ql (U) TRACE Abnormal NEGATIVE [facility] Comment on above: Performed By: #### P T #### [facility] [address] [place] [address] Dr. Hugh Landis LEUKOCYTES Negative Normal NEGATIVE [facility] Comment on above: Performed By: #### P T #### [facility] [address] [place] [address] Dr. Hugh Landis MUCOUS MODERATE Abnormal NONE SEEN [facility] Comment on above: Performed By: #### P T #### [facility] [address] [place] [address] Dr. Hugh Landis Nitrite Ql (U) Negative Normal NEGATIVE [facility] Comment on above: Performed By: #### P T #### [facility] [address] [place] [address] Dr. Hugh Landis pH (U) 5.0 [pH] Normal 5-9 The [facility] Comment on above: Performed By: #### P T #### [facility] [address] [place] [address] Dr. Hugh Landis RBC NONE SEEN Abnormal 0-2 The [facility] Comment on above: Performed By: #### P T #### [facility] [address] [place] [address] Dr. Hugh Landis SPEC GRAVITY 1.025 Normal 1.005-<=1.02 5 [facility] Comment on above: Performed By: #### P T #### [facility] [address] [place] [address] Dr. Hugh Landis UA PROTEIN TRACE Normal NEGATIVE/ TRACE [facility] Comment on above: Performed By: #### P T #### [facility] [address] [place] [address] Dr. Hugh Landis Urobilinogen Qn (U) 0.2 {Dahiana'U}/dL Normal 0.2 - 1. 0 [facility] Comment on above: Performed By: #### P T #### [facility] [address] [place] [address] Dr. Hugh Landis WBC NONE SEEN Normal NONE SEEN The [facility] Comment on above: Performed By: #### P T #### [facility] [address] [place] [address] Dr. Hugh Landis URIC ACID SERUMon 06-11-2022 Urate [Mass/Vol] 7.5 mg/dL Critically high 3.5-7.2 [facility] Comment on above: Performed By: #### P TT #### [facility] [address] [place] [address] Dr. Hugh Landis VITAMIN D 25 OHon 06-11-2022 VIT D 25-OH 35.0 ng/mL Normal The [facility] Comment on above: Performed By: #### P T #### [facility] [address] [place] [address] Dr. Hugh Landis VIT D RANGES SEE BELOW Normal The [facility] Comment on above: Result Comment: <20 ng/mL Vit D deficient 20 - <30 ng/mL Vit D insufficient 30 - 100 ng/mL Vit D sufficient >100 ng/mL Potential Toxicity Performed By: #### P T #### [facility] [address] [place] [address] Dr. Hugh Landis PROTIMEon 03-15-2022 INR Coag (PPP) [Relative time] 1.11 {INR} Normal [facility] Comment on above: Performed By: #### P T #### [facility] [address] [place] [address] Dr. Hugh Landis INR GUIDELINES SEE BELOW Normal [facility] Comment on above: Result Comment: VIC RED INR: 2.0 - 3.0 CONDITIONS NOT LISTED BELOW 2.5 - 3.5 FOR PROSTHETIC HEART VALVE REPLACEMENT 2.5 - 3.5 RECURRENT THROMBOSIS Performed By: #### P T #### [facility] [address] [place] [address] Dr. Hugh Landis PT Coag (PPP) [Time] 11.7 s Critically high 9.0-11.6 [facility] Comment on above: Performed By: #### P T #### [facility] [address] [place] [address] Dr. Hugh Landis UA (CLEAN/CATCH) RIBBON CUTTER/MICRO I F IND.on 03-15-2022 Bilirubin Ql (U) Negative Normal NEGATIVE [facility] Comment on above: Performed By: #### P TT #### [facility] [address] [place] [address] Dr. Hugh Landis Clarity (U) CLEAR Normal CLEAR [facility] Comment on above: Performed By: #### P TT #### [facility] [address] [place] [address] Dr. Hugh Landis Color (U) YELLOW Normal YELLOW [facility] Comment on above: Performed By: #### P TT #### [facility] [address] [place] [address] Dr. Hugh Landis Glucose Ql (U) Negative Normal NEGATIVE [facility] Comment on above: Performed By: #### P TT #### [facility] [address] [place] [address] Dr. Hugh Landis Hemoglobin Ql (U) SMALL Abnormal NEGATIVE The [facility] Comment on above: Performed By: #### P TT #### [facility] [address] [place] [address] Dr. Hugh Landis Ketones Ql (U) Negative Normal NEGATIVE [facility] Comment on above: Performed By: #### P TT #### [facility] [address] [place] [address] Dr. Hugh Landis LEUKOCYTES Negative Normal NEGATIVE [facility] Comment on above: Performed By: #### P TT #### [facility] [address] [address] [address] Hugh Landis Nitrite Ql (U) Negative Normal NEGATIVE [facility] Comment on above: Performed By: #### P TT #### [facility] [address] [place] [address] Dr. Hugh Landis pH (U) 5.5 [pH] Normal 5-9 [facility] Comment on above: Performed By: #### P TT #### [facility] [address] [place] [address] Dr. Hugh Landis SPEC GRAVITY 1.025 Normal 1.005-<=1.02 5 [facility] Comment on above: Performed By: #### P TT #### [facility] [address] [place] [address] Dr. Hugh Landis UA PROTEIN Negative Normal NEGATIVE/ TRACE The [facility] Comment on above: Performed By: #### P TT #### [facility] [address] [place] [address] Dr. Huhg Landis UR MICRO IND INDICATED Normal [facility] Comment on above: Performed By: #### P TT #### [facility] [address] [place] [address] Dr. Hugh Landis Urobilinogen Qn (U) 0.2 {Dahiana'U}/dL Normal 0.2 - 1. 0 [facility] Comment on above: Performed By: #### P TT #### [facility] [address] [place] [address] Dr. Hugh Landis URINE MICROSCOPIC ONLYon BACTERIA TRACE Abnormal NONE SEEN [facility] Comment on above: Performed By: #### P TT #### [facility] [address] [place] [address] Dr. Hugh Landis Bacteria identified Cx Nom (U) NOT INDICATED Normal The [facility] Comment on above: Performed By: #### P TT #### [facility] [address] [place] [address] Dr. Hugh Landis CAST NONE SEEN Normal NONE SEEN [facility] Comment on above: Performed By: #### P TT #### [facility] [address] [place] [address] Dr. Hugh Landis Crystals LM Nom (Urine sed) NONE SEEN Normal NONE SEEN [facility] Comment on above: Performed By: #### P TT #### [facility] [address] [place] [address] Dr. Hugh Landis Epithelial cells LM Ql (Urine sed) RARE Normal NONE SEEN /RARE The [facility] Comment on above: Performed By: #### P TT #### [facility] [address] [place] [address] Dr. Hugh Landis MUCOUS NONE SEEN Normal NONE SEEN [facility] Comment on above: Performed By: #### P TT #### [facility] [address] [place] [address] Dr. Hugh Landis RBC 0-2 Normal 0-2 The [facility] Comment on above: Performed By: #### P TT #### [facility] [address] [place] [address] Dr. Hugh Landis WBC 0-2 Abnormal NONE SEEN [facility] Comment on above: Performed By: #### P TT #### [facility] [address] [place] [address] Dr. Hugh Landis MRSA NARES #1on 03-08-2022 MRSA NARES #1 Culture Observations : NO GROWTH OF MRSA AT 48 HOURS. Normal The [facility] Comment on above: Performed By: #### B MP #### [facility] [address] [place] [address] Dr. Hugh Landis PROF CHEM 8 (BAS METB)on Anion gap [Moles/Vol] 9.9 mmol/L Normal [facility] Comment on above: Performed By: #### C MP, LIPID, TSH #### [facility] [address] [place] [address] Dr. Hugh Landis Calcium [Mass/Vol] 9.4 mg/dL Normal 8.5-10.1 [facility] Comment on above: Performed By: #### C MP, LIPID, TSH #### [facility] [address] [address] [address] Hugh Landis Chloride [Moles/Vol] 103 mmol/L Normal 98-107 [facility] Comment on above: Performed By: #### C MP, LIPID, TSH #### [facility] [address] [place] [address] Dr. Hugh Landis CO2 [Moles/Vol] 31.6 mmol/L Normal 21.0-32.0 [facility] Comment on above: Performed By: #### C MP, LIPID, TSH #### [facility] [address] [place] [address] Dr. Hugh Landis Creatinine [Mass/Vol] 1.25 mg/dL Normal 0.70-1.30 [facility] Comment on above: Performed By: #### C MP, LIPID, TSH #### [facility] [address] [place] [address] Dr. Hugh Landis EGFR-AF BARBADIAN >60 Normal >=60 [facility] Comment on above: Performed By: #### C MP, LIPID, TSH #### [facility] [address] [place] [address] Dr. Hugh Landis EGFR-NON AF BARBADIAN 59 mL/min/1.73m2 Critically low >=60 [facility] Comment on above: Performed By: #### C MP, LIPID, TSH #### [facility] [address] [place] [address] Dr. Hugh Landis Glucose [Mass/Vol] 110 mg/dL Critically high 74-106 [facility] Comment on above: Performed By: #### C MP, LIPID, TSH #### [facility] [address] [place] [address] Dr. Hugh Landis Potassium [Moles/Vol] 3.5 mmol/L Normal 3.5-5.1 [facility] Comment on above: Performed By: #### C MP, LIPID, TSH #### [facility] [address] [place] [address] Dr. Hugh Landis Sodium [Moles/Vol] 141 mmol/L Normal 136-145 [facility] Comment on above: Performed By: #### C MP, LIPID, TSH #### [facility] [address] [place] [address] Dr. Hugh Landis Urea nitrogen [Mass/Vol] 27.0 mg/dL Critically high 7.0-18.0 [facility] Comment on above: Performed By: #### C MP, LIPID, TSH #### [facility] [address] [address] [address] Hugh Landis Urea nitrogen/Creatinine [Mass ratio] 21.6 mg/mg Normal [facility] Comment on above: Performed By: #### C MP, LIPID, TSH #### [facility] [address] [place] [address] Dr. Hugh Landis PTTon 03-08-2022 aPTT Coag (Bld) [Time] 27.0 s Normal 22.3-36.2 [facility] Comment on above: Performed By: #### P TT #### [facility] [address] [place] [address] Dr. Hugh Landis INSULINon 01-25-2022 Insulin 11.1 uIU/mL Normal 2.6-24.9 [facility] Comment on above: Performed By: #### U TOMAS, TSH, CMP, LIPID, T7 #### [facility] [address] [place] [address] Dr. Hugh Landis CBC AUTO DIFFon 01-24-2022 BASO # 0.1 103/ul Normal 0.0-0.1 [facility] Comment on above: Performed By: #### C MP, LIPID, TSH #### [facility] [address] [place] [address] Dr. Hugh Landis Basophils/100 WBC (Bld) 1.3 % Normal 0.2-2.0 The [facility] Comment on above: Performed By: #### C MP, LIPID, TSH #### [facility] [address] [place] [address] Dr. Hugh Landis EO # 0.2 103/ul Normal 0.0-0.7 The [facility] Comment on above: Performed By: #### C MP, LIPID, TSH #### [facility] [address] [place] [address] Dr. Hugh Landis Eosinophils/100 WBC (Bld) 4.7 % Normal 0.9-7.0 The [facility] Comment on above: Performed By: #### C MP, LIPID, TSH #### [facility] [address] [place] [address] Dr. Hugh Landis Erythrocyte distribution width (RBC) [Ratio] 12.6 % Normal 11.0-15.0 [facility] Comment on above: Performed By: #### C MP, LIPID, TSH #### [facility] [address] [place] [address] Dr. Hugh Landis Hematocrit (Bld) [Volume fraction] 39.1 % Critically low 42.0-54.0 [facility] Comment on above: Performed By: #### C MP, LIPID, TSH #### [facility] [address] [place] [address] Dr. Hugh Landis Hemoglobin (Bld) [Mass/Vol] 12.4 g/dL Critically low 14.0-18.0 [facility] Comment on above: Performed By: #### C MP, LIPID, TSH #### [facility] [address] [place] [address] Dr. Hugh Landis IG # 0.01 10e3/ul Normal 0.00-0.03 [facility] Comment on above: Performed By: #### C MP, LIPID, TSH #### [facility] [address] [place] [address] Dr. Hugh Landis IG % 0.2 % Normal 0.0-0.5 [facility] Comment on above: Performed By: #### C MP, LIPID, TSH #### [facility] [address] [address] [address] Hugh Landis LYMPH # 0.9 103/ul Critically low 1.2-3.8 [facility] Comment on above: Performed By: #### C MP, LIPID, TSH #### [facility] [address] [address] [address] Hguh Landis Lymphocytes/100 WBC (Bld) 19.4 % Critically low 20.5-60.0 [facility] Comment on above: Performed By: #### C MP, LIPID, TSH #### [facility] [address] [address] [address] Hugh Landis MANUAL DIFF REQ NO Normal [facility] Comment on above: Performed By: #### C MP, LIPID, TSH #### [facility] [address] [place] [address] Dr. Hugh Landis MCH (RBC) [Entitic mass] 29.2 pg Normal 25.9-34.0 [facility] Comment on above: Performed By: #### C MP, LIPID, TSH #### [facility] [address] [place] [address] Dr. Hugh Landis MCHC (RBC) [Mass/Vol] 31.7 g/dL Normal 29.9-35.2 [facility] Comment on above: Performed By: #### C MP, LIPID, TSH #### [facility] [address] [address] [address] Hugh Landis MCV (RBC) [Entitic vol] 92.0 fL Normal 80.0-94.0 [facility] Comment on above: Performed By: #### C MP, LIPID, TSH #### [facility] [address] [address] [address] Hugh Landis MONO # 0.5 103/ul Normal 0.3-0.8 [facility] Comment on above: Performed By: #### C MP, LIPID, TSH #### [facility] [address] [address] [address] Hugh Landis Monocytes/100 WBC (Bld) 9.6 % Normal 1.7-12.0 [facility] Comment on above: Performed By: #### C MP, LIPID, TSH #### [facility] [address] [address] [address] Hugh Landis NEUT # 3.0 103/ul Normal 1.4-6.5 [facility] Comment on above: Performed By: #### C MP, LIPID, TSH #### [facility] [address] [place] [address] Dr. Hugh Landis Neutrophils/100 WBC (Bld) 64.8 % Normal 43.0-75.0 [facility] Comment on above: Performed By: #### C MP, LIPID, TSH #### [facility] [address] [place] [address] Dr. Hugh Landis Platelet mean volume (Bld) [Entitic vol] 9.4 fL Critically low 9.5-13.5 [facility] Comment on above: Performed By: #### C MP, LIPID, TSH #### [facility] [address] [place] [address] Dr. Hugh Landis PLT 232 103/ul Normal 150-450 [facility] Comment on above: Performed By: #### C MP, LIPID, TSH #### [facility] [address] [place] [address] Dr. Hugh Landis RBC 4.25 106/ul Critically low 4.70-6.10 [facility] Comment on above: Performed By: #### C MP, LIPID, TSH #### [facility] [address] [place] [address] Dr. Hugh Landis WBC 4.7 103/ul Normal 4.0-11.0 [facility] Comment on above: Performed By: #### C MP, LIPID, TSH #### [facility] [address] [place] [address] Dr. Hugh Landis FREE THYROXINE INDEX T7on -2021 FTI 2.65 Normal 1.30-4.50 [facility] Comment on above: Performed By: #### B MP #### [facility] [address] [place] [address] Dr. Hugh Landis T3U 34.0 % Normal 33.0-40.0 [facility] Comment on above: Performed By: #### B MP #### [facility] [address] [address] [address] Hugh Landis T4 [Mass/Vol] 7.80 ug/dL Normal 4.50-12.10 [facility] Comment on above: Performed By: #### B MP #### [facility] [address] [address] [address] Hugh Landis GLYCOHEMOGLOBIN A1Con 2021 ADA RECOMMENDATION SEE BELOW Normal [facility] Comment on above: Result Comment: ADA RECOMMENDED LIMIT 4.0 - 6.0 ADA THERAPEUTIC TARGET < 7.0 ACTION SUGGESTED > 7.0 Performed By: #### C MP, LIPID, TSH #### [facility] [address] [place] [address] Dr. Hugh Landis Glucose [Mass/Vol] 123 mg/dL Normal [facility] Comment on above: Performed By: #### C MP, LIPID, TSH #### [facility] [address] [place] [address] Dr. Hugh Landis HbA1c (Bld) [Mass fraction] 5.9 % Normal 4.5-6.2 [facility] Comment on above: Performed By: #### C MP, LIPID, TSH #### [facility] [address] [place] [address] Dr. Hugh Landis LIPID PROFILEon 01-24-2022 CHOL-HDL RATIO NORM SEE BELOW Normal [facility] Comment on above: Result Comment: 3.3 - 4.4 LOW RISK 4.4 - 7.1 AVERAGE RISK 7.1 - 11.0 MODERATE RISK >11.0 HIGH RISK Performed By: #### U TOMAS, TSH, CMP, LIPID, T7 #### [facility] [address] [place] [address] Dr. Hugh Landis Cholesterol [Mass/Vol] 179 mg/dL Normal <=200 [facility] Comment on above: Performed By: #### U TOMAS, TSH, CMP, LIPID, T7 #### [facility] [address] [place] [address] Dr. Hugh Landis Cholesterol in HDL [Mass/Vol] 46 mg/dL Normal 40-60 [facility] Comment on above: Performed By: #### U TOMAS, TSH, CMP, LIPID, T7 #### [facility] [address] [address] [address] Hugh Landis Cholesterol in LDL [Mass/Vol] 100.4 mg/dL Normal [facility] Comment on above: Performed By: #### U TOMAS, TSH, CMP, LIPID, T7 #### [facility] [address] [address] [address] Hugh Landis Cholesterol.total/Ch olesterol in HDL [Mass ratio] 3.9 {ratio} Normal [facility] Comment on above: Performed By: #### U TOMAS, TSH, CMP, LIPID, T7 #### [facility] [address] [address] [address] Hugh Landis HDL NORMAL > or = 60 mg/dl - LO W CARDIOVASCULAR RISK <40 mg/dl - HIGH CARDIOVASCULAR RISK Normal [facility] Comment on above: Performed By: #### U TOMAS, TSH, CMP, LIPID, T7 #### [facility] [address] [address] [address] Hugh Landis LDL CALC NORMAL SEE BELOW Normal [facility] Comment on above: Result Comment: <100 mg/dl OPTIMAL 100 - 129 mg/dl NEAR OR ABOVE OPTIMAL 130 - 159 mg/dl BORDERLINE HIGH 160 - 189 mg/dl HIGH >190 mg/dl VERY HIGH Performed By: #### U TOMAS, TSH, CMP, LIPID, T7 #### [facility] [address] [address] [address] Hugh Landis Triglyceride [Mass/Vol] 163 mg/dL Critically high <=150 [facility] Comment on above: Performed By: #### U TOMAS, TSH, CMP, LIPID, T7 #### [facility] [address] [address] [address] Hugh Landis VLDL CALC 32.6 mg/dL Normal [facility] Comment on above: Performed By: #### U TOMAS, TSH, CMP, LIPID, T7 #### [facility] [address] [place] [address] Dr. Hugh Landis PROF 14(COMP METB)on 022 Albumin [Mass/Vol] 3.6 g/dL Normal 3.4-5.0 [facility] Comment on above: Performed By: #### U TOMAS, TSH, CMP, LIPID, T7 #### [facility] [address] [place] [address] Dr. Hugh Landis Albumin/Globulin [Mass ratio] 0.9 {ratio} Normal [facility] Comment on above: Performed By: #### U TOMAS, TSH, CMP, LIPID, T7 #### [facility] [address] [place] [address] Dr. Hugh Landis ALP [Catalytic activity/Vol] 81 U/L Normal 46-116 [facility] Comment on above: Performed By: #### U TOMAS, TSH, CMP, LIPID, T7 #### [facility] [address] [place] [address] Dr. Hugh Landis ALT [Catalytic activity/Vol] 19 U/L Normal 16-63 [facility] Comment on above: Performed By: #### U TOMAS, TSH, CMP, LIPID, T7 #### [facility] [address] [place] [address] Dr. Hugh Landis Anion gap [Moles/Vol] 13.4 mmol/L Normal [facility] Comment on above: Performed By: #### U TOMAS, TSH, CMP, LIPID, T7 #### [facility] [address] [place] [address] Dr. Hugh Landis AST [Catalytic activity/Vol] 16 U/L Normal 15-37 [facility] Comment on above: Performed By: #### U TOMAS, TSH, CMP, LIPID, T7 #### [facility] [address] [place] [address] Dr. Hugh Landis Bilirubin [Mass/Vol] 0.5 mg/dL Normal 0.2-1.0 [facility] Comment on above: Performed By: #### U TOMAS, TSH, CMP, LIPID, T7 #### [facility] [address] [place] [address] Dr. Hugh Landis Calcium [Mass/Vol] 9.7 mg/dL Normal 8.5-10.1 [facility] Comment on above: Performed By: #### U TOMAS, TSH, CMP, LIPID, T7 #### [facility] [address] [address] [address] Hugh Landis Chloride [Moles/Vol] 105 mmol/L Normal 98-107 [facility] Comment on above: Performed By: #### U TOMAS, TSH, CMP, LIPID, T7 #### [facility] [address] [address] [address] Hugh Landis CO2 [Moles/Vol] 27.4 mmol/L Normal 21.0-32.0 [facility] Comment on above: Performed By: #### U TOMAS, TSH, CMP, LIPID, T7 #### [facility] [address] [address] [address] Hugh Landis Creatinine [Mass/Vol] 1.37 mg/dL Critically high 0.70-1.30 [facility] Comment on above: Performed By: #### U TOMAS, TSH, CMP, LIPID, T7 #### [facility] [address] [address] [address] Hugh Landis EGFR-AF BARBADIAN >60 Normal >=60 [facility] Comment on above: Performed By: #### U TOMAS, TSH, CMP, LIPID, T7 #### [facility] [address] [address] [address] Hugh Landis EGFR-NON AF BARBADIAN 53 mL/min/1.73m2 Critically low >=60 [facility] Comment on above: Performed By: #### U TOMAS, TSH, CMP, LIPID, T7 #### [facility] [address] [address] [address] Hugh Landis Globulin (S) [Mass/Vol] 4.0 g/dL Normal [facility] Comment on above: Performed By: #### U TOMAS, TSH, CMP, LIPID, T7 #### [facility] [address] [address] [address] Hugh Landis Glucose [Mass/Vol] 113 mg/dL Critically high 74-106 [facility] Comment on above: Performed By: #### U TOMAS, TSH, CMP, LIPID, T7 #### [facility] [address] [address] [address] Hugh Landis Potassium [Moles/Vol] 3.8 mmol/L Normal 3.5-5.1 [facility] Comment on above: Performed By: #### U TOMAS, TSH, CMP, LIPID, T7 #### [facility] [address] [address] [address] Hugh Landis Protein [Mass/Vol] 7.6 g/dL Normal 6.4-8.2 [facility] Comment on above: Performed By: #### U TOMAS, TSH, CMP, LIPID, T7 #### [facility] [address] [place] [address] Dr. Hugh Landis Sodium [Moles/Vol] 142 mmol/L Normal 136-145 [facility] Comment on above: Performed By: #### U TOMAS, TSH, CMP, LIPID, T7 #### [facility] [address] [place] [address] Dr. Hugh Landis Urea nitrogen [Mass/Vol] 21.0 mg/dL Critically high 7.0-18.0 [facility] Comment on above: Performed By: #### U TOMAS, TSH, CMP, LIPID, T7 #### [facility] [address] [place] [address] Dr. Hugh Landis Urea nitrogen/Creatinine [Mass ratio] 15.3 mg/mg Normal [facility] Comment on above: Performed By: #### U TOMAS, TSH, CMP, LIPID, T7 #### [facility] [address] [place] [address] Dr. Hugh Landis TSHon 01-24-2022 TSH 0.663 uIU/mL Normal 0.358-3.740 [facility] Comment on above: Performed By: #### U TOMAS, TSH, CMP, LIPID, T7 #### [facility] [address] [place] [address] Dr. Hugh Landis URIC ACID SERUMon 01-24-2022 Urate [Mass/Vol] 6.9 mg/dL Normal 3.5-7.2 [facility] Comment on above: Performed By: #### B MP #### [facility] [address] [place] [address] Dr. Hugh Landis VITAMIN D 25 OHon 01-24-2022 VIT D 25-OH 37.0 ng/mL Normal [facility] Comment on above: Performed By: #### P TT #### [facility] [address] [place] [address] Dr. Hugh Landis VIT D RANGES SEE BELOW Normal [facility] Comment on above: Result Comment: <20 ng/mL Vit D deficient 20 - <30 ng/mL Vit D insufficient 30 - 100 ng/mL Vit D sufficient >100 ng/mL Potential Toxicity Performed By: #### P TT #### [facility] [address] [place] [address] Dr. Hugh Landis US KIDNEYSon 12-21-2021 US [...] OBIE TSE Date: 2021-12-21 17:34 Normal [facility] XR ABD FLAT UP_PA Barrett 12-21 XR [...] by: AUSTIN LARIOS Date: 2021-12-21 18:13 Normal [facility] Urine culture routineOrdered By: Estephanie Lowry on 12-17-2021 Bacteria identified Cx Nom (U) No Growth 2 Days [facility] Chlamydia trachomatis DNA [P resence] in Specimen by MUKUL with probe detectionOrdered By: Estephanie Lowry on 12-15-2021 C. trachomatis DNA MUKUL+probe Ql (Unsp spec) Negative Negative [facility] Chlamydia/GC/Trich NAAon Chlamydia Trachomotis, MUKUL Negative Normal Negative [facility] Comment on above: Order Comment: Reaso n for Exam Dysuria Performed By: #### G CCHLAMTRI #### [facility] , #### CUU #### [facility] [address] Neisseria Gonorrhoeae, MUKUL Negative Normal Negative [facility] Comment on above: Order Comment: Reaso n for Exam Dysuria Performed By: #### G CCHLAMTRI #### [facility] , #### CUU #### [facility] [address] [place] [address] [place] Trichomonas MUKUL Negative Normal Negative [facility] Comment on above: Order Comment: Reaso n for Exam Dysuria Result Comment: Perf ormed at: =G - [facility] [address] [id number] Diver Assistant: Shoshana Camargo MD, Phone: [phone] PERFORMED BY: [address] [id number] PATHOLOGIST SPECIAL LIBRARY LIBRARIAN ASBRA SAUNDERS M.D. Performed By: #### G CCHLAMTRI #### [facility] , #### CUU #### [facility] [address] [id number] [facility] Chlamydia/GC/Trich MUKUL Negative Negative [employer] Other Neisseria gonorrhoeae DNA [P resence] in Specimen by MUKUL with probe detectionOrdered By: Estephanie Lorwy on 12-15-2021 N. gonorrhoeae DNA MUKUL+probe Ql (Unsp spec) Negative Negative [facility] Trichomonas vaginalis DNA [P resence] in Specimen by MUKUL with probe detectionOrdered By: Estephanie Lowry on 12-15-2021 T. vaginalis DNA MUKUL+probe Ql (Unsp spec) Negative Negative [facility] Comment on above: Performed at: =[address] [id number] Director: Shoshana Camargo MD, Phone: [phone] Urinalysis - AUTOMATEDon Appearance (U) clear [employer] Other Bilirubin Ql (U) Negative [employer] Other Color (U) orange [employer] Other Glucose Ql (U) Negative [employer] Other Hemoglobin Ql (U) moderate [employer] Other Ketones Ql (U) Negative [employer] Other Leukocyte esterase Test strip Ql (U) Negative [employer] Other Nitrite Ql (U) Positive [employer] Other pH (U) 5.5 [pH] [employer] Other Protein Ql (U) Negative [employer] Other Specific gravity (U) [Rel density] 1.015 [employer] Other Urobilinogen (U) [Mass/Vol] 0.2 mg/dL [employer] Other Urinalysis - AUTOMATED [employer] Other Urine Cultureon 12-15-2021 Bacteria identified Cx Nom (U) Reason for Exam Dysuria Urine No Growth 2 Days PERFORMED BY: [place] [address] PATHOLOGIST SPECIAL LIBRARY LIBRARIAN SABRA SAUNDERS M.D. Normal [facility] Comment on above: Performed By: #### G CCHLAMTRI #### [facility] , #### CUU #### [address] Bacteria identified Cx Nom (U) [employer] [facility] [employer] Other CULTURE URINEon 11-24-2021 CULTURE URINE Culture Observations : NO GROWTH. Normal [facility] Comment on above: Performed By: #### B MP #### [facility] [address] [address] [address] Hugh Landis PROTEIN ELECTROPHERESIS URIN E RANDOMon 11-17-2021 Albumin, U 33.4 % Normal [facility] Comment on above: Performed By: #### C MP, LIPID, TSH #### [facility] [address] [address] [address] Hugh Landis Alpha-1 Globulin U 4.7 % Normal [facility] Comment on above: Performed By: #### C MP, LIPID, TSH #### [facility] [address] [address] [address] Hugh Landis Alpha-2 Glubulin U 18.6 % Normal [facility] Comment on above: Performed By: #### C MP, LIPID, TSH #### [facility] [address] [address] [address] Hugh Landis Beta Globulin, U 19.9 % Normal [facility] Comment on above: Performed By: #### C MP, LIPID, TSH #### [facility] [address] [address] [address] Hugh Landis Gamma Globulin U 23.4 % Normal [facility] Comment on above: Performed By: #### C MP, LIPID, TSH #### [facility] [address] [address] [address] Hugh Landis M-Tariq, % Not Observed Normal Not Observed [facility] Comment on above: Performed By: #### C MP, LIPID, TSH #### [facility] [address] [address] [address] Hugh Landis PDF . Normal [facility] Comment on above: Performed By: #### C MP, LIPID, TSH #### [facility] [address] [address] [address] Hugh Landis Please note: Comment Normal [facility] Comment on above: Result Comment: Prot ein electrophoresis scan will follow via computer, mail, or ruffling hemmer automatic delivery. Performed By: #### C MP, LIPID, TSH #### [facility] [address] [address] [address] Hugh Landis Protein (U) [Mass/Vol] 4.9 mg/dL Normal Not Estab. [facility] Comment on above: Performed By: #### C MP, LIPID, TSH #### [facility] [address] [address] [address] Hugh Landis IMMUNOFIXATION(PRINCE),PROTEIN ELEC(PE),FREon 11-16-2021 Albumin [Mass/Vol] 3.4 g/dL Normal 2.9-4.4 [facility] Comment on above: Performed By: #### C MP, LIPID, TSH #### [facility] [address] [address] [address] Hugh Landis Albumin/Globulin [Mass ratio] 1.0 {ratio} Normal 0.7-1.7 [facility] Comment on above: Performed By: #### C MP, LIPID, TSH #### [facility] [address] [address] [address] Hugh Landis Xwmzk-1-Siyjrfiy 0.2 g/dL Normal 0.0-0.4 [facility] Comment on above: Performed By: #### C MP, LIPID, TSH #### [facility] [address] [place] [address] Dr. Hugh Landis Qcaho-3-Dejprmiq 1.1 g/dL Critically high 0.4-1.0 [facility] Comment on above: Performed By: #### C MP, LIPID, TSH #### [facility] [address] [place] [address] Dr. Hugh Landis Beta Globulin 1.0 g/dL Normal 0.7-1.3 [facility] Comment on above: Performed By: #### C MP, LIPID, TSH #### [facility] [address] [place] [address] Dr. Hugh Landis Free [place] Lt Chains,S 35.7 mg/L Critically high 3.3-19.4 [facility] Comment on above: Performed By: #### C MP, LIPID, TSH #### [facility] [address] [place] [address] Dr. Hugh Landis Free Lambda Lt Chains,S 21.1 mg/L Normal 5.7-26.3 [facility] Comment on above: Performed By: #### C MP, LIPID, TSH #### [facility] [address] [place] [address] Dr. Hugh Landis Gamma Globulin 1.2 g/dL Normal 0.4-1.8 [facility] Comment on above: Performed By: #### C MP, LIPID, TSH #### [facility] [address] [place] [address] Dr. Hugh Landis Globulin (S) [Mass/Vol] 3.5 g/dL Normal 2.2-3.9 [facility] Comment on above: Performed By: #### C MP, LIPID, TSH #### [facility] [address] [place] [address] Dr. Hugh Landis Immunofixation Result, Serum Comment Normal [facility] Comment on above: Result Comment: No m onoclonality detected. Performed By: #### C MP, LIPID, TSH #### [facility] [address] [address] [address] Hugh Landis Immunoglobulin A, Qn, Serum 228 mg/dL Normal 90-386 [facility] Comment on above: Performed By: #### C MP, LIPID, TSH #### [facility] [address] [address] [address] Hugh Landis Immunoglobulin G, Qn, Serum 1221 mg/dL Normal 603-1613 [facility] Comment on above: Performed By: #### C MP, LIPID, TSH #### [facility] [address] [address] [address] Hugh Landis Immunoglobulin M, Qn, Serum 79 mg/dL Normal 20-172 [facility] Comment on above: Performed By: #### C MP, LIPID, TSH #### [facility] [address] [place] [address] Dr. Hugh Landis [place]/Lambda Ratio, S 1.69 Critically high 0.26-1.65 [facility] Comment on above: Performed By: #### C MP, LIPID, TSH #### [facility] [address] [address] [address] Hugh Landis M-Tariq Not Observed Normal Not Observed [facility] Comment on above: Performed By: #### C MP, LIPID, TSH #### [facility] [address] [address] [address] Hugh Landis PDF . Normal [facility] Comment on above: Performed By: #### C MP, LIPID, TSH #### [facility] [address] [address] [address] Hugh Landis Please note: Comment Normal [facility] Comment on above: Result Comment: Prot ein electrophoresis scan will follow via computer, mail, or ruffling hemmer automatic delivery. Performed By: #### C MP, LIPID, TSH #### [facility] [address] [place] [address] Dr. Hugh Landis Protein [Mass/Vol] 6.9 g/dL Normal 6.0-8.5 [facility] Comment on above: Performed By: #### C MP, LIPID, TSH #### [facility] [address] [address] [address] Hugh Landis PROTEIN AND CREA RANDOM UR R ATIOon 11-16-2021 Creatinine, Urine 54.8 mg/dL Normal Not Estab. The [facility] Comment on above: Performed By: #### C MP, LIPID, TSH #### [facility] [address] [place] [address] Dr. Hugh Landis Protein (U) [Mass/Vol] 4.1 mg/dL Normal Not Estab. [facility] Comment on above: Performed By: #### C MP, LIPID, TSH #### [facility] [address] [address] [address] Hugh Landis Protein/Creat Ratio 75 mg/g creat Normal 0-[address] [facility] Comment on above: Performed By: #### C MP, LIPID, TSH #### [facility] [address] [place] [address] Dr. Hugh Landis PTH INTACTon 11-15-2021 PTH, Intact 39 pg/mL Normal 15-65 [facility] Comment on above: Performed By: #### P T #### [facility] [address] [place] [address] Dr. Hugh Landis UA RANDOM W/MICROSCOPICon BACTERIA NONE SEEN Normal NONE SEEN [facility] Comment on above: Performed By: #### P TT #### [facility] [address] [place] [address] Dr. Hugh Landis Bilirubin Ql (U) Negative Normal NEGATIVE [facility] Comment on above: Performed By: #### P TT #### [facility] [address] [place] [address] Dr. Hugh Landis CAST NONE SEEN Normal NONE SEEN [facility] Comment on above: Performed By: #### P TT #### [facility] [facility] [address] [place] [address] Dr. Hugh Landis Clarity (U) CLEAR Normal CLEAR [facility] Comment on above: Performed By: #### P TT #### [facility] [address] [place] [address] Dr. Hugh Landis Color (U) LT. YELLOW Normal YELLOW [facility] Comment on above: Performed By: #### P TT #### [facility] [address] [place] [address] Dr. Hugh Landis Crystals LM Nom (Urine sed) NONE SEEN Normal NONE SEEN [facility] Comment on above: Performed By: #### P TT #### [facility] [address] [place] [address] Dr. Hugh Landis Epithelial cells LM Ql (Urine sed) NONE SEEN Normal NONE SEEN /RARE [facility] Comment on above: Performed By: #### P TT #### [facility] [address] [place] [address] Dr. Hugh Landis Glucose Ql (U) Negative Normal NEGATIVE The [facility] Comment on above: Performed By: #### P TT #### [facility] [address] [place] [address] Dr. Hugh Landis Hemoglobin Ql (U) MODERATE Abnormal NEGATIVE The [facility] Comment on above: Performed By: #### P TT #### [facility] [address] [place] [address] Dr. Hugh Landis Ketones Ql (U) Negative Normal NEGATIVE The [facility] Comment on above: Performed By: #### P TT #### [facility] [address] [place] [address] Dr. Hugh Landis LEUKOCYTES Negative Normal NEGATIVE [facility] Comment on above: Performed By: #### P TT #### [facility] [address] [place] [address] Dr. Hugh Landis MUCOUS NONE SEEN Normal NONE SEEN [facility] Comment on above: Performed By: #### P TT #### [facility] [address] [place] [address] Dr. Hugh Landis Nitrite Ql (U) Negative Normal NEGATIVE The [facility] Comment on above: Performed By: #### P TT #### [facility] [address] [place] [address] Dr. Hugh Landis pH (U) 5.5 [pH] Normal 5-9 [facility] Comment on above: Performed By: #### P TT #### [facility] [address] [place] [address] Dr. Hugh Landis RBC 5-10 Abnormal 0-2 [facility] Comment on above: Performed By: #### P TT #### [facility] [address] [place] [address] Dr. Hugh Landis SPEC GRAVITY 1.010 Normal 1.005-<=1.02 5 [facility] Comment on above: Performed By: #### P TT #### [facility] [address] [place] [address] Dr. Hugh Landis UA PROTEIN Negative Normal NEGATIVE/ TRACE [facility] Comment on above: Performed By: #### P TT #### [facility] [address] [place] [address] Dr. Hugh Landis Urobilinogen Qn (U) 0.2 {Dahiana'U}/dL Normal 0.2 - 1. 0 [facility] Comment on above: Performed By: #### P TT #### [facility] [address] [place] [address] Dr. Hugh Landis WBC 0-2 Abnormal NONE SEEN [facility] Comment on above: Performed By: #### P TT #### [facility] [address] [place] [address] Dr. Hugh Landis URINE T PROTEIN CREAT RATIOo n 11-15-2021 Protein (U) [Mass/Vol] 10.0 mg/dL Normal <=12.0 [facility] Comment on above: Performed By: #### B MP #### [facility] [address] [place] [address] Dr. Hugh Landis UR PROT CREAT RAT 0.18 Normal The [facility] Comment on above: Performed By: #### B MP #### [facility] [address] [place] [address] Dr. Hugh Landis URINE CREAT 57.11 mg/dL Normal 20.00-300.00 The [facility] Comment on above: Performed By: #### B MP #### [facility] [address] [place] [address] Dr. Hugh Landis FERRITINon 11-14-2021 Ferritin [Mass/Vol] 95.0 ng/mL Normal 26.0-388.0 [facility] Comment on above: Performed By: #### C MP, LIPID, TSH #### [facility] [address] [place] [address] Dr. Hugh Landis HEMOGRAM AND PLATELon 2021 Hematocrit (Bld) [Volume fraction] 35.7 % Critically low 42.0-54.0 [facility] Comment on above: Performed By: #### U TOMAS, TSH, CMP, LIPID, T7 #### [facility] [address] [place] [address] Dr. Hugh Landis Hemoglobin (Bld) [Mass/Vol] 11.5 g/dL Critically low 14.0-18.0 [facility] Comment on above: Performed By: #### U TOMAS, TSH, CMP, LIPID, T7 #### [facility] [address] [place] [address] Dr. Hugh Landis MCH (RBC) [Entitic mass] 30.3 pg Normal 25.9-34.0 [facility] Comment on above: Performed By: #### U TOMAS, TSH, CMP, LIPID, T7 #### [facility] [address] [place] [address] Dr. Hugh Landis MCHC (RBC) [Mass/Vol] 32.2 g/dL Normal 29.9-35.2 [facility] Comment on above: Performed By: #### U TOMAS, TSH, CMP, LIPID, T7 #### [facility] [address] [place] [address] Dr. Hugh Landis MCV (RBC) [Entitic vol] 93.9 fL Normal 80.0-94.0 [facility] Comment on above: Performed By: #### U TOMAS, TSH, CMP, LIPID, T7 #### [facility] [address] [place] [address] Dr. Hugh Landis PLT 254 103/ul Normal 150-450 [facility] Comment on above: Performed By: #### U TOMAS, TSH, CMP, LIPID, T7 #### [facility] [address] [address] [address] Hugh Landis RBC 3.80 106/ul Critically low 4.70-6.10 [facility] Comment on above: Performed By: #### U TOMAS, TSH, CMP, LIPID, T7 #### [facility] [address] [address] [address] Hugh Landis WBC 6.4 103/ul Normal 4.0-11.0 [facility] Comment on above: Performed By: #### U TOMAS, TSH, CMP, LIPID, T7 #### [facility] [address] [address] [address] Hugh Landis IRON AND TIBCon 11-14-2021 % SATURATION 27.6 % Normal [facility] Comment on above: Performed By: #### C MP, LIPID, TSH #### [facility] [address] [place] [address] Dr. Hugh Landis Iron [Mass/Vol] 68.0 ug/dL Normal 65.0-175.0 [facility] Comment on above: Performed By: #### C MP, LIPID, TSH #### [facility] [address] [address] [address] Hugh Landis TIBC DIRECT 246.0 ug/dL Critically low 250.0-450.0 The [facility] Comment on above: Performed By: #### C MP, LIPID, TSH #### [facility] [address] [place] [address] Dr. Hugh Landis MAGNESIUMon 11-14-2021 Magnesium [Mass/Vol] 1.8 mg/dL Normal 1.8-2.4 [facility] Comment on above: Performed By: #### U TOMAS, TSH, CMP, LIPID, T7 #### [facility] [address] [address] [address] Hugh Landis RENAL FUNCTION PANELon 11-14 Albumin [Mass/Vol] 3.4 g/dL Normal 3.4-5.0 [facility] Comment on above: Performed By: #### U TOMAS, TSH, CMP, LIPID, T7 #### [facility] [address] [place] [address] Dr. Hugh Landis Calcium [Mass/Vol] 9.1 mg/dL Normal 8.5-10.1 [facility] Comment on above: Performed By: #### U TOMAS, TSH, CMP, LIPID, T7 #### [facility] [address] [address] [address] Hugh Landis Chloride [Moles/Vol] 105 mmol/L Normal 98-107 [facility] Comment on above: Performed By: #### U TOMAS, TSH, CMP, LIPID, T7 #### [facility] [address] [address] [address] Hugh Landis CO2 [Moles/Vol] 29.2 mmol/L Normal 21.0-32.0 [facility] Comment on above: Performed By: #### U TOMAS, TSH, CMP, LIPID, T7 #### [facility] [address] [place] [address] Dr. Hugh Landis Creatinine [Mass/Vol] 1.62 mg/dL Critically high 0.70-1.30 [facility] Comment on above: Performed By: #### U TOMAS, TSH, CMP, LIPID, T7 #### [facility] [address] [address] [address] Hugh Landis EGFR-AF BARBADIAN 53 mL/min/1.73m2 Critically low >=60 [facility] Comment on above: Performed By: #### U TOMAS, TSH, CMP, LIPID, T7 #### [facility] [address] [address] [address] Hugh Landis EGFR-NON AF BARBADIAN 44 mL/min/1.73m2 Critically low >=60 [facility] Comment on above: Performed By: #### U TOMAS, TSH, CMP, LIPID, T7 #### [facility] [address] [address] [address] Hugh Landis Glucose [Mass/Vol] 136 mg/dL Critically high 74-106 [facility] Comment on above: Performed By: #### U TOMAS, TSH, CMP, LIPID, T7 #### [facility] [address] [address] [address] Hugh Landis Phosphate [Mass/Vol] 2.8 mg/dL Normal 2.6-4.7 [facility] Comment on above: Performed By: #### U TOMAS, TSH, CMP, LIPID, T7 #### [facility] [address] [place] [address] Dr. Hugh Landis Potassium [Moles/Vol] 3.1 mmol/L Critically low 3.5-5.1 [facility] Comment on above: Performed By: #### U TOMAS, TSH, CMP, LIPID, T7 #### [facility] [address] [place] [address] Dr. Hugh Landis Sodium [Moles/Vol] 141 mmol/L Normal 136-145 [facility] Comment on above: Performed By: #### U TOMAS, TSH, CMP, LIPID, T7 #### [facility] [address] [place] [address] Dr. Hugh Landis Urea nitrogen [Mass/Vol] 19.0 mg/dL Critically high 7.0-18.0 [facility] Comment on above: Performed By: #### U TOMAS, TSH, CMP, LIPID, T7 #### [facility] [address] [place] [address] Dr. Hugh Landis URIC ACID SERUMon 11-14-2021 Urate [Mass/Vol] 8.7 mg/dL Critically high 3.5-7.2 [facility] Comment on above: Performed By: #### U TOMAS, TSH, CMP, LIPID, T7 #### [facility] [address] [place] [address] Dr. Hugh Landis VIT B12 AND FOLATEon 022 Cobalamin (Vitamin B12) [Mass/Vol] 373.0 pg/mL Normal 193.0-986.0 [facility] Comment on above: Performed By: #### U TOMAS, TSH, CMP, LIPID, T7 #### [facility] [address] [place] [address] Dr. Hugh Landis FOLATE 14.00 ng/mL Normal 8.60-58.90 [facility] Comment on above: Performed By: #### U TOMAS, TSH, CMP, LIPID, T7 #### [facility] [address] [place], [place] [address] Dr. Hugh Landis VITAMIN D 25 OHon 11-14-2021 VIT D 25-OH 33.8 ng/mL Normal [facility] Comment on above: Performed By: #### U TOMAS, TSH, CMP, LIPID, T7 #### [facility] [address] [place], [place] [address] Dr. Hugh Landis VIT D RANGES SEE BELOW Normal [facility] Comment on above: Result Comment: <20 ng/mL Vit D deficient 20 - <30 ng/mL Vit D insufficient 30 - 100 ng/mL Vit D sufficient >100 ng/mL Potential Toxicity Performed By: #### U TOMSA, TSH, CMP, LIPID, T7 #### [facility] [address] [id number] [address] Hugh Landis US KIDNEYS BLADDERon 022 [...] AUSTIN LARIOS Date: 2021-11-01 16:44 Normal [facility] XR CHEST 2 Von 11-01-2021 XR CHEST [...] OBIE TSE Date: 2021-11-01 06:51 Normal [facility] NM LUNG VENT_PERFon 11-01-19 22 NM LUNG VENT_PERF EXAM: NM LUNG VENT_PERF HISTORY: Dyspnea COMPARISON: Chest x-ray 10/31/2021 TECHNIQUE: 6.1 mCi technetium MAA. 24.9 mCi technetium DTPA. FINDINGS: Perfusion images demonstrate no segmental perfusion defects to suggest acute pulmonary embolism Ventilation images are normal without ventilation defects. IMPRESSION: Normal ventilation/perfusion scan Electronically authenticated by: JASPER SCHRADER Date: 2021-10-31 12:35 Normal [facility] PROF CHEM 8 (BAS METB)on Anion gap [Moles/Vol] 17.5 mmol/L Normal [facility] Comment on above: Performed By: #### B MP #### [facility] [address] [place] [address] Dr. Hugh Landis Calcium [Mass/Vol] 9.4 mg/dL Normal 8.5-10.1 [facility] Comment on above: Performed By: #### B MP #### [facility] [address] [place] [address] Dr. Hugh Landis Chloride [Moles/Vol] 100 mmol/L Normal 98-107 [facility] Comment on above: Performed By: #### B MP #### [facility] [address] [address] [address] Hugh Landis CO2 [Moles/Vol] 22.8 mmol/L Normal 21.0-32.0 [facility] Comment on above: Performed By: #### B MP #### [facility] [address] [address] [address] Hugh Landis Creatinine [Mass/Vol] 2.69 mg/dL Critically high 0.70-1.30 [facility] Comment on above: Performed By: #### B MP #### [facility] [address] [address] [address] Hugh Landis EGFR-AF BARBADIAN 30 mL/min/1.73m2 Critically low >=60 [facility] Comment on above: Performed By: #### B MP #### [facility] [address] [address] [address] Hugh Landis EGFR-NON AF BARBADIAN 24 mL/min/1.73m2 Critically low >=60 [facility] Comment on above: Performed By: #### B MP #### [facility] [address] [address] [address] Hugh Landis Glucose [Mass/Vol] 117 mg/dL Critically high 74-106 [facility] Comment on above: Performed By: #### B MP #### [facility] [address] [address] [address] Hugh Landis Potassium [Moles/Vol] 4.3 mmol/L Normal 3.5-5.1 [facility] Comment on above: Performed By: #### B MP #### [facility] [address] [place] [address] Dr. Hugh Landis Sodium [Moles/Vol] 136 mmol/L Normal 136-145 [facility] Comment on above: Performed By: #### B MP #### [facility] [address] [place] [address] Dr. Hugh Landis Urea nitrogen [Mass/Vol] 41.0 mg/dL Critically high 7.0-18.0 [facility] Comment on above: Performed By: #### B MP #### [facility] [address] [address] [address] Hugh Landis Urea nitrogen/Creatinine [Mass ratio] 15.2 mg/mg Normal [facility] Comment on above: Performed By: #### B MP #### [facility] [address] [place] [address] Dr. Hugh Landis CBC AUTO DIFFon 10-16-2021 BASO # 0.0 103/ul Normal 0.0-0.1 [facility] Comment on above: Performed By: #### P T #### [facility] [address] [place] [address] Dr. Hugh Landis Basophils/100 WBC (Bld) 0.6 % Normal 0.2-2.0 [facility] Comment on above: Performed By: #### P T #### [facility] [address] [place] [address] Dr. Hugh Landis EO # 0.2 103/ul Normal 0.0-0.7 [facility] Comment on above: Performed By: #### P T #### [facility] [address] [place] [address] Dr. Hugh Landis Eosinophils/100 WBC (Bld) 2.3 % Normal 0.9-7.0 [facility] Comment on above: Performed By: #### P T #### [facility] [address] [place] [address] Dr. Hugh Landis Erythrocyte distribution width (RBC) [Ratio] 12.7 % Normal 11.0-15.0 [facility] Comment on above: Performed By: #### P T #### [facility] [address] [place] [address] Dr. Hugh Landis Hematocrit (Bld) [Volume fraction] 36.2 % Critically low 42.0-54.0 [facility] Comment on above: Performed By: #### P T #### [facility] [address] [place] [address] Dr. Hugh Landis Hemoglobin (Bld) [Mass/Vol] 11.5 g/dL Critically low 14.0-18.0 [facility] Comment on above: Performed By: #### P T #### [facility] [address] [place] [address] Dr. Hugh Landis IG # 0.02 10e3/ul Normal 0.00-0.03 [facility] Comment on above: Performed By: #### P T #### [facility] [address] [place] [address] Dr. Hugh Landis IG % 0.3 % Normal 0.0-0.5 [facility] Comment on above: Performed By: #### P T #### [facility] [address] [place] [address] Dr. Hugh Landis LYMPH # 1.4 103/ul Normal 1.2-3.8 [facility] Comment on above: Performed By: #### P T #### [facility] [address] [place] [address] Dr. Hugh Landis Lymphocytes/100 WBC (Bld) 21.3 % Normal 20.5-60.0 [facility] Comment on above: Performed By: #### P T #### [facility] [address] [place] [address] Dr. Hugh Landis MANUAL DIFF REQ NO Normal [facility] Comment on above: Performed By: #### P T #### [facility] [address] [place] [address] Dr. Hugh Landis MCH (RBC) [Entitic mass] 29.6 pg Normal 25.9-34.0 [facility] Comment on above: Performed By: #### P T #### [facility] [address] [place] [address] Dr. Hugh Landis MCHC (RBC) [Mass/Vol] 31.8 g/dL Normal 29.9-35.2 [facility] Comment on above: Performed By: #### P T #### [facility] [address] [place] [address] Dr. Hugh Landis MCV (RBC) [Entitic vol] 93.1 fL Normal 80.0-94.0 [facility] Comment on above: Performed By: #### P T #### [facility] [address] [place] [address] Dr. Hugh Landis MONO # 0.8 103/ul Normal 0.3-0.8 [facility] Comment on above: Performed By: #### P T #### [facility] [address] [place] [address] Dr. Hugh Landis Monocytes/100 WBC (Bld) 11.5 % Normal 1.7-12.0 [facility] Comment on above: Performed By: #### P T #### [facility] [address] [place] [address] Dr. Hugh Landis NEUT # 4.2 103/ul Normal 1.4-6.5 [facility] Comment on above: Performed By: #### P T #### [facility] [address] [place] [address] Dr. Hugh Landis Neutrophils/100 WBC (Bld) 64.0 % Normal 43.0-75.0 [facility] Comment on above: Performed By: #### P T #### [facility] [address] [place] [address] Dr. Hugh Landis Platelet mean volume (Bld) [Entitic vol] 9.2 fL Critically low 9.5-13.5 [facility] Comment on above: Performed By: #### P T #### [facility] [address] [place] [address] Dr. Hugh Landis PLT 241 103/ul Normal 150-450 [facility] Comment on above: Performed By: #### P T #### [facility] [address] [place] [address] Dr. Hugh Landis RBC 3.89 106/ul Critically low 4.70-6.10 [facility] Comment on above: Performed By: #### P T #### [facility] [address] [place] [address] Dr. Hugh Landis WBC 6.5 103/ul Normal 4.0-11.0 [facility] Comment on above: Performed By: #### P T #### [facility] [address] [place] [address] Dr. Hugh Landis [facility] SARS-CoV-2 (COVID-19) RNA MUKUL+probe Ql (Unsp spec) Not detected Normal NOT DETECTED [facility] Comment on above: Result Comment: This test is not yet approved or cleared by the [place] FDA. When there are no FDA-approved or cleared tests available, and other criteria are met, FDA can make tests available under an emergency access mechanism called an Emergency Use Authorization (EUA). The EUA for this test is supported by the [place] of Health and Human Service's (HHS's) declaration [...] U TOMAS, TSH, CMP, LIPID, T7 #### [facility] [address] [place] [address] Dr. Hugh Landis PROF CHEM 8 (BAS METB)on Anion gap [Moles/Vol] 16.3 mmol/L Normal [facility] Comment on above: Performed By: #### C MP, LIPID, TSH #### [facility] [address] [place] [address] Dr. Hugh Landis Calcium [Mass/Vol] 9.6 mg/dL Normal 8.5-10.1 [facility] Comment on above: Performed By: #### C MP, LIPID, TSH #### [facility] [address] [place] [address] Dr. Hugh Landis Chloride [Moles/Vol] 103 mmol/L Normal 98-107 [facility] Comment on above: Performed By: #### C MP, LIPID, TSH #### [facility] [address] [place] [address] Dr. Hugh Landis CO2 [Moles/Vol] 21.9 mmol/L Normal 21.0-32.0 [facility] Comment on above: Performed By: #### C MP, LIPID, TSH #### [facility] [address] [place] [address] Dr. Hugh Landis Creatinine [Mass/Vol] 3.58 mg/dL Critically high 0.70-1.30 [facility] Comment on above: Performed By: #### C MP, LIPID, TSH #### [facility] [address] [place] [address] Dr. Hugh Landis EGFR-AF BARBADIAN 21 mL/min/1.73m2 Critically low >=60 [facility] Comment on above: Performed By: #### C MP, LIPID, TSH #### [facility] [address] [place] [address] Dr. Hugh Landis EGFR-NON AF BARBADIAN 18 mL/min/1.73m2 Critically low >=60 [facility] Comment on above: Performed By: #### C MP, LIPID, TSH #### [facility] [address] [place] [address] Dr. Hugh Landis Glucose [Mass/Vol] 115 mg/dL Critically high 74-106 [facility] Comment on above: Performed By: #### C MP, LIPID, TSH #### [facility] [address] [place] [address] Dr. Hugh Landis Potassium [Moles/Vol] 5.2 mmol/L Critically high 3.5-5.1 [facility] Comment on above: Performed By: #### C MP, LIPID, TSH #### [facility] [address] [place] [address] Dr. Hugh Landis Sodium [Moles/Vol] 136 mmol/L Normal 136-145 [facility] Comment on above: Performed By: #### C MP, LIPID, TSH #### [facility] [address] [place] [address] Dr. Hugh Landis Urea nitrogen [Mass/Vol] 54.0 mg/dL Critically high 7.0-18.0 [facility] Comment on above: Performed By: #### C MP, LIPID, TSH #### [facility] [address] [place] [address] Dr. Hugh Landis Urea nitrogen/Creatinine [Mass ratio] 15.1 mg/mg Normal [facility] Comment on above: Performed By: #### C MP, LIPID, TSH #### [facility] [address] [place] [address] Dr. Hugh Landis MRSA COLONIZATION SCREENING CULTUREon 10-09-2021 MRSA Screening Culture Negative Normal [facility] Comment on above: Performed By: #### C MP, LIPID, TSH #### [facility] [address] [place] [address] Dr. Hugh Landis CBC AUTO DIFFon 10-06-2021 BASO # 0.0 103/ul Normal 0.0-0.1 [facility] Comment on above: Performed By: #### U TOMAS, TSH, CMP, LIPID, T7 #### [facility] [address] [place] [address] Dr. Hugh Landis Basophils/100 WBC (Bld) 0.3 % Normal 0.2-2.0 [facility] Comment on above: Performed By: #### U TOMAS, TSH, CMP, LIPID, T7 #### [facility] [address] [place] [address] Dr. Hugh Landis EO # 0.1 103/ul Normal 0.0-0.7 [facility] Comment on above: Performed By: #### U TOMAS, TSH, CMP, LIPID, T7 #### [facility] [address] [place] [address] Dr. Hugh Landis Eosinophils/100 WBC (Bld) 2.3 % Normal 0.9-7.0 [facility] Comment on above: Performed By: #### U TOMAS, TSH, CMP, LIPID, T7 #### [facility] [address] [place] [address] Dr. Hugh Landis Erythrocyte distribution width (RBC) [Ratio] 13.3 % Normal 11.0-15.0 [facility] Comment on above: Performed By: #### U TOMAS, TSH, CMP, LIPID, T7 #### [facility] [address] [place] [address] Dr. Hugh Landis Hematocrit (Bld) [Volume fraction] 36.5 % Critically low 42.0-54.0 [facility] Comment on above: Performed By: #### U TOMAS, TSH, CMP, LIPID, T7 #### [facility] [address] [place] [address] Dr. Hugh Landis Hemoglobin (Bld) [Mass/Vol] 11.7 g/dL Critically low 14.0-18.0 [facility] Comment on above: Performed By: #### U TOMAS, TSH, CMP, LIPID, T7 #### [facility] [address] [address] [address] Hugh Landis IG # 0.02 10e3/ul Normal 0.00-0.03 [facility] Comment on above: Performed By: #### U TOMAS, TSH, CMP, LIPID, T7 #### [facility] [address] [address] [address] Hugh Ladnis IG % 0.3 % Normal 0.0-0.5 [facility] Comment on above: Performed By: #### U TOMAS, TSH, CMP, LIPID, T7 #### [facility] [address] [place] [address] Dr. Hugh Landis LYMPH # 1.3 103/ul Normal 1.2-3.8 [facility] Comment on above: Performed By: #### U TOMAS, TSH, CMP, LIPID, T7 #### [facility] [address] [place] [address] Dr. Hugh Landis Lymphocytes/100 WBC (Bld) 21.9 % Normal 20.5-60.0 [facility] Comment on above: Performed By: #### U TOMAS, TSH, CMP, LIPID, T7 #### [facility] [address] [place] [address] Dr. Hugh Landis MANUAL DIFF REQ NO Normal [facility] Comment on above: Performed By: #### U TOMAS, TSH, CMP, LIPID, T7 #### [facility] [address] [place] [address] Dr. Hugh Landis MCH (RBC) [Entitic mass] 29.7 pg Normal 25.9-34.0 [facility] Comment on above: Performed By: #### U TOMAS, TSH, CMP, LIPID, T7 #### [facility] [address] [place] [address] Dr. Hugh Landis MCHC (RBC) [Mass/Vol] 32.1 g/dL Normal 29.9-35.2 [facility] Comment on above: Performed By: #### U TOMAS, TSH, CMP, LIPID, T7 #### [facility] [address] [place] [address] Dr. Hugh Landis MCV (RBC) [Entitic vol] 92.6 fL Normal 80.0-94.0 [facility] Comment on above: Performed By: #### U TOMAS, TSH, CMP, LIPID, T7 #### [facility] [address] [address] [address] Hugh Landis MONO # 0.7 103/ul Normal 0.3-0.8 [facility] Comment on above: Performed By: #### U TOMAS, TSH, CMP, LIPID, T7 #### [facility] [address] [address] [address] Hugh Landis Monocytes/100 WBC (Bld) 11.3 % Normal 1.7-12.0 [facility] Comment on above: Performed By: #### U TOMAS, TSH, CMP, LIPID, T7 #### [facility] [address] [address] [address] Hugh Landis NEUT # 3.7 103/ul Normal 1.4-6.5 [facility] Comment on above: Performed By: #### U TOMAS, TSH, CMP, LIPID, T7 #### [facility] [address] [place] [address] Dr. Hugh Landis Neutrophils/100 WBC (Bld) 63.9 % Normal 43.0-75.0 [facility] Comment on above: Performed By: #### U TOMAS, TSH, CMP, LIPID, T7 #### [facility] [address] [address] [address] Hugh Landis Platelet mean volume (Bld) [Entitic vol] 8.9 fL Critically low 9.5-13.5 [facility] Comment on above: Performed By: #### U TOMAS, TSH, CMP, LIPID, T7 #### [facility] [address] [address] [address] Hguh Landis PLT 257 103/ul Normal 150-450 [facility] Comment on above: Performed By: #### U TOMAS, TSH, CMP, LIPID, T7 #### [facility] [address] [address] [address] Hugh Landis RBC 3.94 106/ul Critically low 4.70-6.10 [facility] Comment on above: Performed By: #### U TOMAS, TSH, CMP, LIPID, T7 #### [facility] [address] [address] [address] Hugh Landis WBC 5.8 103/ul Normal 4.0-11.0 [facility] Comment on above: Performed By: #### U TOMAS, TSH, CMP, LIPID, T7 #### [facility] [address] [address] [address] Hugh Landis GLYCOHEMOGLOBIN A1Con 2021 ADA RECOMMENDATION SEE BELOW Normal [facility] Comment on above: Result Comment: ADA RECOMMENDED LIMIT 4.0 - 6.0 ADA THERAPEUTIC TARGET < 7.0 ACTION SUGGESTED > 7.0 Performed By: #### U TOMAS, TSH, CMP, LIPID, T7 #### [facility] [address] [address] [address] Hugh Landis Glucose [Mass/Vol] 134 mg/dL Normal [facility] Comment on above: Performed By: #### U TOMAS, TSH, CMP, LIPID, T7 #### [facility] [address] [address] [address] Hugh Landis HbA1c (Bld) [Mass fraction] 6.3 % Critically high 4.5-6.2 [facility] Comment on above: Performed By: #### U TOMAS, TSH, CMP, LIPID, T7 #### [facility] [address] [address] [address] Hugh Landis PROF CHEM 8 (BAS METB)on Anion gap [Moles/Vol] 17.6 mmol/L Normal [facility] Comment on above: Performed By: #### C MP, LIPID, TSH #### [facility] [address] [address] [address] Hugh Landis Calcium [Mass/Vol] 9.5 mg/dL Normal 8.5-10.1 [facility] Comment on above: Performed By: #### C MP, LIPID, TSH #### [facility] [address] [address] [address] Hugh Landis Chloride [Moles/Vol] 102 mmol/L Normal 98-107 [facility] Comment on above: Performed By: #### C MP, LIPID, TSH #### [facility] [address] [place] [address] Dr. Hugh Landis CO2 [Moles/Vol] 22.2 mmol/L Normal 21.0-32.0 [facility] Comment on above: Performed By: #### C MP, LIPID, TSH #### [facility] [address] [place] [address] Dr. Hugh Landis Creatinine [Mass/Vol] 2.94 mg/dL Critically high 0.70-1.30 [facility] Comment on above: Performed By: #### C MP, LIPID, TSH #### [facility] [address] [place] [address] Dr. Hugh Landis EGFR-AF BARBADIAN 27 mL/min/1.73m2 Critically low >=60 [facility] Comment on above: Performed By: #### C MP, LIPID, TSH #### [facility] [address] [place] [address] Dr. Hugh Landis EGFR-NON AF BARBADIAN 22 mL/min/1.73m2 Critically low >=60 [facility] Comment on above: Performed By: #### C MP, LIPID, TSH #### [facility] [address] [place] [address] Dr. Hugh Landis Glucose [Mass/Vol] 234 mg/dL Critically high 74-106 [facility] Comment on above: Performed By: #### C MP, LIPID, TSH #### [facility] [address] [place] [address] Dr. Hugh Landis Potassium [Moles/Vol] 5.8 mmol/L Critically high 3.5-5.1 [facility] Comment on above: Performed By: #### C MP, LIPID, TSH #### [facility] [address] [place] [address] Dr. Hugh Landis Sodium [Moles/Vol] 136 mmol/L Normal 136-145 [facility] Comment on above: Performed By: #### C MP, LIPID, TSH #### [facility] [address] [address] [address] Hugh Landis Urea nitrogen [Mass/Vol] 46.0 mg/dL Critically high 7.0-18.0 [facility] Comment on above: Performed By: #### C MP, LIPID, TSH #### [facility] [address] [address] [address] Hugh Landis Urea nitrogen/Creatinine [Mass ratio] 15.6 mg/mg Normal [facility] Comment on above: Performed By: #### C MP, LIPID, TSH #### [facility] [address] [address] [address] Hugh Landis PROTIMEon 10-06-2021 INR Coag (PPP) [Relative time] 1.22 {INR} Normal [facility] Comment on above: Performed By: #### U TOMAS, TSH, CMP, LIPID, T7 #### [facility] [address] [place] [address] Dr. Hugh Landis INR GUIDELINES SEE BELOW Normal [facility] Comment on above: Result Comment: VIC RED INR: 2.0 - 3.0 CONDITIONS NOT LISTED BELOW 2.5 - 3.5 FOR PROSTHETIC HEART VALVE REPLACEMENT 2.5 - 3.5 RECURRENT THROMBOSIS Performed By: #### U TOMAS, TSH, CMP, LIPID, T7 #### [facility] [address] [place] [address] Dr. Hugh Landis PT Coag (PPP) [Time] 13.0 s Critically high 9.0-11.6 [facility] Comment on above: Performed By: #### U TOMAS, TSH, CMP, LIPID, T7 #### [facility] [address] [place] [address] Dr. Hugh Landis PTTon 10-06-2021 aPTT Coag (Bld) [Time] 30.6 s Normal 22.3-36.2 [facility] Comment on above: Performed By: #### U TOMAS, TSH, CMP, LIPID, T7 #### [facility] [address] [place] [address] Dr. Hugh Landis UA RANDOMon 10-06-2021 Bilirubin Ql (U) Negative Normal NEGATIVE [facility] Comment on above: Performed By: #### C MP, LIPID, TSH #### [facility] [address] [address] [address] Hugh Landis Clarity (U) CLEAR Normal CLEAR [facility] Comment on above: Performed By: #### C MP, LIPID, TSH #### [facility] [address] [address] [address] Hugh Landis Color (U) LT. YELLOW Normal YELLOW [facility] Comment on above: Performed By: #### C MP, LIPID, TSH #### [facility] [address] [address] [address] Hugh Landis Glucose Ql (U) Negative Normal NEGATIVE [facility] Comment on above: Performed By: #### C MP, LIPID, TSH #### [facility] [address] [place] [address] Dr. Hugh Landis Hemoglobin Ql (U) Negative Normal NEGATIVE [facility] Comment on above: Performed By: #### C MP, LIPID, TSH #### [facility] [address] [place] [address] Dr. Hugh Landis Ketones Ql (U) Negative Normal NEGATIVE [facility] Comment on above: Performed By: #### C MP, LIPID, TSH #### [facility] [address] [place] [address] Dr. Hugh Landis LEUKOCYTES Negative Normal NEGATIVE [facility] Comment on above: Performed By: #### C MP, LIPID, TSH #### [facility] [address] [address] [address] Hugh Landis Nitrite Ql (U) Negative Normal NEGATIVE [facility] Comment on above: Performed By: #### C MP, LIPID, TSH #### [facility] [address] [address] [address] Hugh Landis pH (U) 5.5 [pH] Normal 5-9 [facility] Comment on above: Performed By: #### C MP, LIPID, TSH #### [facility] [address] [address] [address] Hugh Landis SPEC GRAVITY 1.020 Normal 1.005-<=1.02 5 [facility] Comment on above: Performed By: #### C MP, LIPID, TSH #### [facility] [address] [place] [address] Dr. Hugh Landis UA PROTEIN Negative Normal NEGATIVE/ TRACE [facility] Comment on above: Performed By: #### C MP, LIPID, TSH #### [facility] [address] [place] [address] Dr. Hugh Landis Urobilinogen Qn (U) 0.2 {Dahiana'U}/dL Normal 0.2 - 1. 0 [facility] Comment on above: Performed By: #### C MP, LIPID, TSH #### [facility] [address] [place] [address] Dr. Hugh Landis CBC AUTO DIFFon 09-25-2021 BASO # 0.0 103/ul Normal 0.0-0.1 [facility] Comment on above: Performed By: #### U TOMAS, TSH, CMP, LIPID, T7 #### [facility] [address] [place] [address] Dr. Hugh Landis Basophils/100 WBC (Bld) 0.4 % Normal 0.2-2.0 [facility] Comment on above: Performed By: #### U TOMAS, TSH, CMP, LIPID, T7 #### [facility] [address] [place] [address] Dr. Hugh Landis EO # 0.1 103/ul Normal 0.0-0.7 [facility] Comment on above: Performed By: #### U TOMAS, TSH, CMP, LIPID, T7 #### [facility] [address] [place] [address] Dr. Hugh Landis Eosinophils/100 WBC (Bld) 1.7 % Normal 0.9-7.0 [facility] Comment on above: Performed By: #### U TOMAS, TSH, CMP, LIPID, T7 #### [facility] [address] [place] [address] Dr. Hugh Landis Erythrocyte distribution width (RBC) [Ratio] 13.5 % Normal 11.0-15.0 [facility] Comment on above: Performed By: #### U TOMAS, TSH, CMP, LIPID, T7 #### [facility] [address] [place] [address] Dr. Hugh Landis Hematocrit (Bld) [Volume fraction] 36.0 % Critically low 42.0-54.0 [facility] Comment on above: Performed By: #### U TOMAS, TSH, CMP, LIPID, T7 #### [facility] [address] [place] [address] Dr. Hugh Landis Hemoglobin (Bld) [Mass/Vol] 11.7 g/dL Critically low 14.0-18.0 [facility] Comment on above: Performed By: #### U TOMAS, TSH, CMP, LIPID, T7 #### [facility] [address] [place] [address] Dr. Hugh Landis IG # 0.02 10e3/ul Normal 0.00-0.03 [facility] Comment on above: Performed By: #### U TOMAS, TSH, CMP, LIPID, T7 #### [facility] [address] [place] [address] Dr. Hugh Landis IG % 0.3 % Normal 0.0-0.5 [facility] Comment on above: Performed By: #### U TOMAS, TSH, CMP, LIPID, T7 #### [facility] [address] [place] [address] Dr. Hugh Landis LYMPH # 1.3 103/ul Normal 1.2-3.8 [facility] Comment on above: Performed By: #### U TOMAS, TSH, CMP, LIPID, T7 #### [facility] [address] [place] [address] Dr. Hugh Landis Lymphocytes/100 WBC (Bld) 18.3 % Critically low 20.5-60.0 [facility] Comment on above: Performed By: #### U TOMAS, TSH, CMP, LIPID, T7 #### [facility] [address] [place] [address] Dr. Hugh Landis MANUAL DIFF REQ NO Normal [facility] Comment on above: Performed By: #### U TOMAS, TSH, CMP, LIPID, T7 #### [facility] [address] [place] [address] Dr. Hugh Landis MCH (RBC) [Entitic mass] 29.4 pg Normal 25.9-34.0 [facility] Comment on above: Performed By: #### U TOMAS, TSH, CMP, LIPID, T7 #### [facility] [address] [place] [address] Dr. Hugh Landis MCHC (RBC) [Mass/Vol] 32.5 g/dL Normal 29.9-35.2 [facility] Comment on above: Performed By: #### U TOMAS, TSH, CMP, LIPID, T7 #### [facility] [address] [place] [address] Dr. Hugh Landis MCV (RBC) [Entitic vol] 90.5 fL Normal 80.0-94.0 [facility] Comment on above: Performed By: #### U TOMAS, TSH, CMP, LIPID, T7 #### [facility] [address] [place] [address] Dr. Hugh Landis MONO # 0.6 103/ul Normal 0.3-0.8 [facility] Comment on above: Performed By: #### U TOMAS, TSH, CMP, LIPID, T7 #### [facility] [address] [place] [address] Dr. Hugh Landis Monocytes/100 WBC (Bld) 8.6 % Normal 1.7-12.0 [facility] Comment on above: Performed By: #### U TOMAS, TSH, CMP, LIPID, T7 #### [facility] [address] [place] [address] Dr. Hugh Landis NEUT # 4.9 103/ul Normal 1.4-6.5 [facility] Comment on above: Performed By: #### U TOMAS, TSH, CMP, LIPID, T7 #### [facility] [address] [place] [address] Dr. Hugh Landis Neutrophils/100 WBC (Bld) 70.7 % Normal 43.0-75.0 [facility] Comment on above: Performed By: #### U TOMAS, TSH, CMP, LIPID, T7 #### [facility] [address] [address] [address] Hugh Landis Platelet mean volume (Bld) [Entitic vol] 8.8 fL Critically low 9.5-13.5 [facility] Comment on above: Performed By: #### U TOMAS, TSH, CMP, LIPID, T7 #### [facility] [address] [place] [address] Dr. Hugh Landis PLT 270 103/ul Normal 150-450 [facility] Comment on above: Performed By: #### U TOMAS, TSH, CMP, LIPID, T7 #### [facility] [address] [place] [address] Dr. Hugh Landis RBC 3.98 106/ul Critically low 4.70-6.10 [facility] Comment on above: Performed By: #### U TOMAS, TSH, CMP, LIPID, T7 #### [facility] [address] [place] [address] Dr. Hugh Landis WBC 6.9 103/ul Normal 4.0-11.0 [facility] Comment on above: Performed By: #### U TOMAS, TSH, CMP, LIPID, T7 #### [facility] [address] [place] [address] Dr. Hugh Landis CRPon 09-25-2021 CRP [Mass/Vol] mg/L Normal <=1.0 [facility] Comment on above: Performed By: #### P T #### [facility] [address] [place] [address] Dr. Hugh Landis CULTURE BLOODon 09-25-2021 Microscopic examination of blood, culture Culture Observations: NO GROWTH AT 5 DAYS. Normal [facility] Comment on above: Performed By: #### B MP #### [facility] [address] [place] [address] Dr. Hugh Landis Microscopic examination of blood, culture Culture Observations: NO GROWTH AT 5 DAYS. Normal [facility] Comment on above: Performed By: #### B MP #### [facility] [address] [place] [address] Dr. Hugh Landis IRONon 09-25-2021 Iron [Mass/Vol] 62.0 ug/dL Critically low 65.0-175.0 [facility] [facility] Comment on above: Performed By: #### B MP #### [facility] [address] [address] [address] Hugh Landis SED RATE TECOPAERGRENon 2021 SED RATE 102 mm/hr Critically high <=20 [facility] Comment on above: Performed By: #### C MP, LIPID, TSH #### [facility] [address] [place] [address] Dr. Hugh Landis NM BONE IMAGE 3 [...] OBIE TSE Date: 2021-09-05 16:15 Normal [facility] CREATININEon 08-25-2021 Creatinine [Mass/Vol] 1.92 mg/dL Critically high 0.70-1.30 [facility] Comment on above: Performed By: #### C MP, LIPID, TSH #### [facility] [address] [place] [address] Dr. Hugh Landis EGFR-AF BARBADIAN 44 mL/min/1.73m2 Critically low >=60 [facility] Comment on above: Performed By: #### C MP, LIPID, TSH #### [facility] [address] [place] [address] Dr. Hugh Landis EGFR-NON AF BARBADIAN 36 mL/min/1.73m2 Critically low >=60 [facility] Comment on above: Performed By: #### C MP, LIPID, TSH #### [facility] [address] [address] [address] Hugh Landis CTA CHEST WO W [...] OBIE TSE Date: 2021-08-25 10:16 Normal [facility] CBC AUTO DIFFon 08-18-2021 BASO # 0.0 103/ul Normal 0.0-0.1 [facility] Comment on above: Performed By: #### C MP, LIPID, TSH #### [facility] [address] [address] [address] Hugh Landis Basophils/100 WBC (Bld) 0.4 % Normal 0.2-2.0 [facility] Comment on above: Performed By: #### C MP, LIPID, TSH #### [facility] [address] [address] [address] Hugh Landis EO # 0.1 103/ul Normal 0.0-0.7 [facility] Comment on above: Performed By: #### C MP, LIPID, TSH #### [facility] [address] [address] [address] Hugh Landis Eosinophils/100 WBC (Bld) 1.8 % Normal 0.9-7.0 [facility] Comment on above: Performed By: #### C MP, LIPID, TSH #### [facility] [address] [place] [address] Dr. Hugh Landis Erythrocyte distribution width (RBC) [Ratio] 13.3 % Normal 11.0-15.0 [facility] Comment on above: Performed By: #### C MP, LIPID, TSH #### [facility] [address] [place] [address] Dr. Hugh Landis Hematocrit (Bld) [Volume fraction] 34.7 % Critically low 42.0-54.0 [facility] Comment on above: Performed By: #### C MP, LIPID, TSH #### [facility] [address] [place] [address] Dr. Hugh Landis Hemoglobin (Bld) [Mass/Vol] 11.3 g/dL Critically low 14.0-18.0 [facility] Comment on above: Performed By: #### C MP, LIPID, TSH #### [facility] [address] [place] [address] Dr. Hugh Landis IG # 0.05 10e3/ul Critically high 0.00-0.03 [facility] Comment on above: Performed By: #### C MP, LIPID, TSH #### [facility] [address] [place] [address] Dr. Hugh Landis IG % 0.7 % Critically high 0.0-0.5 [facility] Comment on above: Performed By: #### C MP, LIPID, TSH #### [facility] [address] [place] [address] Dr. Hugh Landis LYMPH # 1.1 103/ul Critically low 1.2-3.8 [facility] Comment on above: Performed By: #### C MP, LIPID, TSH #### [facility] [address] [place] [address] Dr. Hugh Landis Lymphocytes/100 WBC (Bld) 16.0 % Critically low 20.5-60.0 [facility] Comment on above: Performed By: #### C MP, LIPID, TSH #### [facility] [address] [place] [address] Dr. Hugh Landis MANUAL DIFF REQ NO Normal [facility] Comment on above: Performed By: #### C MP, LIPID, TSH #### [facility] [address] [place] [address] Dr. Hugh Landis MCH (RBC) [Entitic mass] 29.7 pg Normal 25.9-34.0 [facility] Comment on above: Performed By: #### C MP, LIPID, TSH #### [facility] [address] [place] [address] Dr. Hugh Landis MCHC (RBC) [Mass/Vol] 32.6 g/dL Normal 29.9-35.2 [facility] Comment on above: Performed By: #### C MP, LIPID, TSH #### [facility] [address] [place] [address] Dr. Hugh Landis MCV (RBC) [Entitic vol] 91.3 fL Normal 80.0-94.0 [facility] Comment on above: Performed By: #### C MP, LIPID, TSH #### [facility] [address] [place] [address] Dr. Hugh Landis MONO # 0.7 103/ul Normal 0.3-0.8 [facility] Comment on above: Performed By: #### C MP, LIPID, TSH #### [facility] [address] [place] [address] Dr. Hugh Landis Monocytes/100 WBC (Bld) 9.7 % Normal 1.7-12.0 [facility] Comment on above: Performed By: #### C MP, LIPID, TSH #### [facility] [address] [place] [address] Dr. Hugh Landis NEUT # 4.9 103/ul Normal 1.4-6.5 [facility] Comment on above: Performed By: #### C MP, LIPID, TSH #### [facility] [address] [place] [address] Dr. Hugh Landis Neutrophils/100 WBC (Bld) 71.4 % Normal 43.0-75.0 [facility] Comment on above: Performed By: #### C MP, LIPID, TSH #### [facility] [address] [address] [address] Hugh Landis Platelet mean volume (Bld) [Entitic vol] 9.0 fL Critically low 9.5-13.5 [facility] Comment on above: Performed By: #### C MP, LIPID, TSH #### [facility] [address] [address] [address] Hugh Landis PLT 264 103/ul Normal 150-450 [facility] Comment on above: Performed By: #### C MP, LIPID, TSH #### [facility] [address] [address] [address] Hugh Landis RBC 3.80 106/ul Critically low 4.70-6.10 [facility] Comment on above: Performed By: #### C MP, LIPID, TSH #### [facility] [address] [place] [address] Dr. Hugh Landis WBC 6.8 103/ul Normal 4.0-11.0 [facility] Comment on above: Performed By: #### C MP, LIPID, TSH #### [facility] [address] [place] [address] Dr. Hugh Landis PROF 14(COMP METB)on 022 Albumin [Mass/Vol] 3.5 g/dL Normal 3.4-5.0 [facility] Comment on above: Performed By: #### U TOMAS, TSH, CMP, LIPID, T7 #### [facility] [address] [place] [address] Dr. Hugh Landis Albumin/Globulin [Mass ratio] 0.8 {ratio} Normal [facility] Comment on above: Performed By: #### U TOMAS, TSH, CMP, LIPID, T7 #### [facility] [address] [place] [address] Dr. Hugh Landis ALP [Catalytic activity/Vol] 63 U/L Normal 46-116 [facility] Comment on above: Performed By: #### U TOMAS, TSH, CMP, LIPID, T7 #### [facility] [address] [address] [address] Hugh Landis ALT [Catalytic activity/Vol] 26 U/L Normal 16-63 [facility] Comment on above: Performed By: #### U TOMAS, TSH, CMP, LIPID, T7 #### [facility] [address] [address] [address] Hugh Landis Anion gap [Moles/Vol] 12.7 mmol/L Normal [facility] Comment on above: Performed By: #### U TOMAS, TSH, CMP, LIPID, T7 #### [facility] [address] [address] [address] Hugh Landis AST [Catalytic activity/Vol] 14 U/L Critically low 15-37 [facility] Comment on above: Performed By: #### U TOMAS, TSH, CMP, LIPID, T7 #### [facility] [address] [address] [address] Hugh Landis Bilirubin [Mass/Vol] 0.3 mg/dL Normal 0.2-1.0 [facility] Comment on above: Performed By: #### U TOMAS, TSH, CMP, LIPID, T7 #### [facility] [address] [address] [address] Hugh Landis Calcium [Mass/Vol] 9.2 mg/dL Normal 8.5-10.1 [facility] Comment on above: Performed By: #### U TOMAS, TSH, CMP, LIPID, T7 #### [facility] [address] [address] [address] Hugh Landis Chloride [Moles/Vol] 105 mmol/L Normal 98-107 [facility] Comment on above: Performed By: #### U TOMAS, TSH, CMP, LIPID, T7 #### [facility] [address] [address] [address] Hugh Landis CO2 [Moles/Vol] 25.5 mmol/L Normal 21.0-32.0 [facility] Comment on above: Performed By: #### U TOMAS, TSH, CMP, LIPID, T7 #### [facility] [address] [address] [address] Hugh Landis Creatinine [Mass/Vol] 2.46 mg/dL Critically high 0.70-1.30 [facility] Comment on above: Performed By: #### U TOMAS, TSH, CMP, LIPID, T7 #### [facility] [address] [address] [address] Hugh Landis EGFR-AF BARBADIAN 33 mL/min/1.73m2 Critically low >=60 [facility] Comment on above: Performed By: #### U TOMAS, TSH, CMP, LIPID, T7 #### [facility] [address] [address] [address] Hugh Landis EGFR-NON AF BARBADIAN 27 mL/min/1.73m2 Critically low >=60 [facility] Comment on above: Performed By: #### U TOMAS, TSH, CMP, LIPID, T7 #### [facility] [address] [address] [address] Hugh Landis Globulin (S) [Mass/Vol] 4.5 g/dL Normal [facility] Comment on above: Performed By: #### U TOMAS, TSH, CMP, LIPID, T7 #### [facility] [address] [address] [address] Hugh Landis Glucose [Mass/Vol] 119 mg/dL Critically high 74-106 [facility] Comment on above: Performed By: #### U TOMAS, TSH, CMP, LIPID, T7 #### [facility] [address] [address] [address] Hugh Landis Potassium [Moles/Vol] 4.2 mmol/L Normal 3.5-5.1 [facility] Comment on above: Performed By: #### U TOMAS, TSH, CMP, LIPID, T7 #### [facility] [address] [address] [address] Hugh Landis Protein [Mass/Vol] 8.0 g/dL Normal 6.4-8.2 [facility] Comment on above: Performed By: #### U TOMAS, TSH, CMP, LIPID, T7 #### [facility] [address] [address] [address] Hugh Landis Sodium [Moles/Vol] 139 mmol/L Normal 136-145 [facility] Comment on above: Performed By: #### U TOMAS, TSH, CMP, LIPID, T7 #### [facility] [address] [address] [address] Hugh Landis Urea nitrogen [Mass/Vol] 49.0 mg/dL Critically high 7.0-18.0 [facility] Comment on above: Performed By: #### U TOMAS, TSH, CMP, LIPID, T7 #### [facility] [id number] [address] Hugh Landis Urea nitrogen/Creatinine [Mass ratio] 19.9 mg/mg Normal [facility] Comment on above: Performed By: #### U TOMAS, TSH, CMP, LIPID, T7 #### [facility] [address] [address] [address] Hugh Landis TESTOSTERONE, FREE,DIRECT, T OTALon 08-14-2021 Free Testosterone(Direct) 5.9 pg/mL Critically low 7.2-24.0 [facility] Comment on above: Result Comment: Perf ormed at: BN Performed By: #### B MP #### [facility] [address] [place] [address] Dr. Hugh Landis Testosterone [Mass/Vol] 392 ng/dL Normal 264-916 [facility] Comment on above: Result Comment: Adul t male reference interval is based on a population of healthy nonobese males (BMI <30) between 19 and 39 years old. Gavi, et.al. JCEM 2017,102;5857-6283. PMID: [id number]. Performed at: CB Performed By: #### B MP #### [facility] [address] [place], [place] [id number] Dr. Hugh Landis VITAMIN B1 (THIAMINE)on 07-27 Vit. B1, Whole Blood 145.1 nmol/L Normal 66.5-200.0 [facility] Comment on above: Performed By: #### C MP, LIPID, TSH #### [facility] [id number] Hugh Landis VITAMIN Aon 08-13-2021 Vitamin A 82.7 ug/dL Critically high 20.1-62.0 [facility] Comment on above: Result Comment: Refe [...] Administration. Performed By: #### P T #### [facility] [address] [place] [address] Dr. Hugh Landis ZINC SERUM OR PLASMAon 08-10 Zinc, Plasma or Serum 78 ug/dL Normal 44-115 [facility] Comment on above: Result Comment: Dete ction Limit = 5 Performed By: #### C MP, LIPID, TSH #### [facility] [address] [place] [address] Dr. Hugh Landis FOLATE ([facility])on Folate 12.9 ng/mL Normal >3.0 [facility] Comment on above: Result Comment: A se rum folate concentration of less than 3.1 ng/mL is considered to represent clinical deficiency. Performed By: #### P TT #### [facility] [address] [place] [address] Dr. Hugh Landis PTH INTACTon 08-09-2021 PTH, Intact 29 pg/mL Normal 15-65 [facility] Comment on above: Performed By: #### P TT #### [facility] [address] [place] [address] Dr. Hugh Landis CBC AUTO DIFFon 08-08-2021 BASO # 0.0 103/ul Normal 0.0-0.1 [facility] Comment on above: Performed By: #### C MP, LIPID, TSH #### [facility] [address] [place] [address] Dr. Hugh Landis Basophils/100 WBC (Bld) 0.6 % Normal 0.2-2.0 [facility] Comment on above: Performed By: #### C MP, LIPID, TSH #### [facility] [address] [place] [address] Dr. Hugh Landis EO # 0.2 103/ul Normal 0.0-0.7 [facility] Comment on above: Performed By: #### C MP, LIPID, TSH #### [facility] [address] [place] [address] Dr. Hugh Landis Eosinophils/100 WBC (Bld) 2.2 % Normal 0.9-7.0 [facility] Comment on above: Performed By: #### C MP, LIPID, TSH #### [facility] [address] [place] [address] Dr. Hugh Lanids Erythrocyte distribution width (RBC) [Ratio] 13.4 % Normal 11.0-15.0 [facility] Comment on above: Performed By: #### C MP, LIPID, TSH #### [facility] [address] [place] [address] Dr. Hugh Landis Hematocrit (Bld) [Volume fraction] 38.2 % Critically low 42.0-54.0 [facility] Comment on above: Performed By: #### C MP, LIPID, TSH #### [facility] [address] [place] [address] Dr. Hugh Landis Hemoglobin (Bld) [Mass/Vol] 11.8 g/dL Critically low 14.0-18.0 [facility] Comment on above: Performed By: #### C MP, LIPID, TSH #### [facility] [address] [place] [address] Dr. Hugh Landis IG # 0.03 10e3/ul Normal 0.00-0.03 [facility] Comment on above: Performed By: #### C MP, LIPID, TSH #### [facility] [address] [place] [address] Dr. Hugh Landis IG % 0.4 % Normal 0.0-0.5 [facility] Comment on above: Performed By: #### C MP, LIPID, TSH #### [facility] [address] [place] [address] Dr. Hugh Landis LYMPH # 1.0 103/ul Critically low 1.2-3.8 [facility] Comment on above: Performed By: #### C MP, LIPID, TSH #### [facility] [address] [place] [address] Dr. Hugh Landis Lymphocytes/100 WBC (Bld) 14.9 % Critically low 20.5-60.0 [facility] Comment on above: Performed By: #### C MP, LIPID, TSH #### [facility] [address] [place] [address] Dr. Hugh Landis MANUAL DIFF REQ NO Normal [facility] Comment on above: Performed By: #### C MP, LIPID, TSH #### [facility] [address] [place] [address] Dr. Hugh Landis MCH (RBC) [Entitic mass] 28.5 pg Normal 25.9-34.0 [facility] Comment on above: Performed By: #### C MP, LIPID, TSH #### [facility] [address] [place] [address] Dr. Hugh Landis MCHC (RBC) [Mass/Vol] 30.9 g/dL Normal 29.9-35.2 [facility] Comment on above: Performed By: #### C MP, LIPID, TSH #### [facility] [address] [place] [address] Dr. Hugh Landis MCV (RBC) [Entitic vol] 92.3 fL Normal 80.0-94.0 [facility] Comment on above: Performed By: #### C MP, LIPID, TSH #### [facility] [address] [place] [address] Dr. Hugh Landis MONO # 0.7 103/ul Normal 0.3-0.8 [facility] Comment on above: Performed By: #### C MP, LIPID, TSH #### [facility] [address] [place] [address] Dr. Hugh Landis Monocytes/100 WBC (Bld) 10.6 % Normal 1.7-12.0 [facility] Comment on above: Performed By: #### C MP, LIPID, TSH #### [facility] [address] [place] [address] Dr. Hugh Landis NEUT # 4.9 103/ul Normal 1.4-6.5 [facility] Comment on above: Performed By: #### C MP, LIPID, TSH #### [facility] [address] [place] [address] Dr. Hugh Landis Neutrophils/100 WBC (Bld) 71.3 % Normal 43.0-75.0 [facility] Comment on above: Performed By: #### C MP, LIPID, TSH #### [facility] [address] [place] [address] Dr. Hugh Landis Platelet mean volume (Bld) [Entitic vol] 9.4 fL Critically low 9.5-13.5 [facility] Comment on above: Performed By: #### C MP, LIPID, TSH #### [facility] [address] [place] [address] Dr. Hugh Landis PLT 249 103/ul Normal 150-450 [facility] Comment on above: Performed By: #### C MP, LIPID, TSH #### [facility] [address] [place] [address] Dr. Hugh Landis RBC 4.14 106/ul Critically low 4.70-6.10 [facility] Comment on above: Performed By: #### C MP, LIPID, TSH #### [facility] [address] [place] [address] Dr. Hugh Landis WBC 6.9 103/ul Normal 4.0-11.0 [facility] Comment on above: Performed By: #### C MP, LIPID, TSH #### [facility] [address] [place] [address] Dr. Hugh Landis FERRITINon 08-08-2021 Ferritin [Mass/Vol] 154.0 ng/mL Normal 26.0-388.0 [facility] Comment on above: Performed By: #### C MP, LIPID, TSH #### [facility] [address] [place] [address] Dr. Hugh Landis GLYCOHEMOGLOBIN A1Con 2021 ADA RECOMMENDATION SEE BELOW Normal [facility] Comment on above: Result Comment: ADA RECOMMENDED LIMIT 4.0 - 6.0 ADA THERAPEUTIC TARGET < 7.0 ACTION SUGGESTED > 7.0 Performed By: #### P T #### [facility] [address] [address] [address] Hugh Landis Glucose [Mass/Vol] 140 mg/dL Normal [facility] Comment on above: Performed By: #### P T #### [facility] [address] [address] [address] Hugh Landis HbA1c (Bld) [Mass fraction] 6.5 % Critically high 4.5-6.2 [facility] Comment on above: Performed By: #### P T #### [facility] [address] [address] [address] Hugh Landis IRON AND TIBCon 08-08-2021 % SATURATION 13.6 % Normal [facility] Comment on above: Performed By: #### C MP, LIPID, TSH #### [facility] [address] [address] [address] Hugh Landis Iron [Mass/Vol] 45.0 ug/dL Critically low 65.0-175.0 [facility] Comment on above: Performed By: #### C MP, LIPID, TSH #### [facility] [address] [address] [address] Hugh Landis TIBC DIRECT 332.0 ug/dL Normal 250.0-450.0 [facility] Comment on above: Performed By: #### C MP, LIPID, TSH #### [facility] [address] [address] [address] Hugh Landis LIPID PROFILEon 08-08-2021 CHOL-HDL RATIO NORM SEE BELOW Normal [facility] Comment on above: Result Comment: 3.3 - 4.4 LOW RISK 4.4 - 7.1 AVERAGE RISK 7.1 - 11.0 MODERATE RISK >11.0 HIGH RISK Performed By: #### C MP, LIPID, TSH #### [facility] [address] [address] [address] Hugh Landis Cholesterol [Mass/Vol] 187 mg/dL Normal <=200 [facility] Comment on above: Performed By: #### C MP, LIPID, TSH #### [facility] [address] [address] [address] Hugh Landis Cholesterol in HDL [Mass/Vol] 51 mg/dL Normal 40-60 [facility] Comment on above: Performed By: #### C MP, LIPID, TSH #### [facility] [address] [address] [address] Hugh Landis Cholesterol in LDL [Mass/Vol] 101.8 mg/dL Normal [facility] Comment on above: Performed By: #### C MP, LIPID, TSH #### [facility] [address] [address] [address] Hugh Landis Cholesterol.total/Ch olesterol in HDL [Mass ratio] 3.7 {ratio} Normal [facility] Comment on above: Performed By: #### C MP, LIPID, TSH #### [facility] [address] [address] [address] Hugh Landis HDL NORMAL > or = 60 mg/dl - LO W CARDIOVASCULAR RISK <40 mg/dl - HIGH CARDIOVASCULAR RISK Normal [facility] Comment on above: Performed By: #### C MP, LIPID, TSH #### [facility] [facility] [address] [address] [address] Hugh Landis LDL CALC NORMAL SEE BELOW Normal [facility] Comment on above: Result Comment: <100 mg/dl OPTIMAL 100 - 129 mg/dl NEAR OR ABOVE OPTIMAL 130 - 159 mg/dl BORDERLINE HIGH 160 - 189 mg/dl HIGH >190 mg/dl VERY HIGH Performed By: #### C MP, LIPID, TSH #### [facility] [address] [address] [address] Hugh Landis Triglyceride [Mass/Vol] 171 mg/dL Critically high <=150 [facility] Comment on above: Performed By: #### C MP, LIPID, TSH #### [facility] [address] [address] [address] Hugh Landis VLDL CALC 34.2 mg/dL Normal [facility] Comment on above: Performed By: #### C MP, LIPID, TSH #### [facility] [address] [address] [address] Hugh Landis PROF 14(COMP METB)on 022 Albumin [Mass/Vol] 3.6 g/dL Normal 3.4-5.0 [facility] Comment on above: Performed By: #### C MP, LIPID, TSH #### [facility] [address] [address] [address] Hugh Landis Albumin/Globulin [Mass ratio] 0.8 {ratio} Normal [facility] Comment on above: Performed By: #### C MP, LIPID, TSH #### [facility] [address] [address] [address] Hugh Landis ALP [Catalytic activity/Vol] 64 U/L Normal 46-116 [facility] Comment on above: Performed By: #### C MP, LIPID, TSH #### [facility] [address] [address] [address] Hugh Landis ALT [Catalytic activity/Vol] 28 U/L Normal 16-63 [facility] Comment on above: Performed By: #### C MP, LIPID, TSH #### [facility] [address] [address] [address] Hugh Landis Anion gap [Moles/Vol] 15.0 mmol/L Normal [facility] Comment on above: Performed By: #### C MP, LIPID, TSH #### [facility] [address] [address] [address] Hugh Landis AST [Catalytic activity/Vol] 14 U/L Critically low 15-37 [facility] Comment on above: Performed By: #### C MP, LIPID, TSH #### [facility] [address] [address] [address] Hugh Landis Bilirubin [Mass/Vol] 0.5 mg/dL Normal 0.2-1.0 [facility] Comment on above: Performed By: #### C MP, LIPID, TSH #### [facility] [address] [address] [address] Hugh Landis Calcium [Mass/Vol] 9.6 mg/dL Normal 8.5-10.1 [facility] Comment on above: Performed By: #### C MP, LIPID, TSH #### [facility] [address] [address] [address] Hugh Landis Chloride [Moles/Vol] 105 mmol/L Normal 98-107 [facility] Comment on above: Performed By: #### C MP, LIPID, TSH #### [facility] [address] [address] [address] Hugh Landis CO2 [Moles/Vol] 23.5 mmol/L Normal 21.0-32.0 [facility] Comment on above: Performed By: #### C MP, LIPID, TSH #### [facility] [address] [address] [address] Hugh Landis Creatinine [Mass/Vol] 2.69 mg/dL Critically high 0.70-1.30 [facility] Comment on above: Performed By: #### C MP, LIPID, TSH #### [facility] [address] [address] [address] Hugh Landis EGFR-AF BARBADIAN 30 mL/min/1.73m2 Critically low >=60 [facility] Comment on above: Performed By: #### C MP, LIPID, TSH #### [facility] [address] [address] [address] Hugh Landis EGFR-NON AF BARBADIAN 25 mL/min/1.73m2 Critically low >=60 [facility] Comment on above: Performed By: #### C MP, LIPID, TSH #### [facility] [address] [address] [address] Hugh Landis Globulin (S) [Mass/Vol] 4.3 g/dL Normal [facility] Comment on above: Performed By: #### C MP, LIPID, TSH #### [facility] [address] [address] [address] Hugh Landis Glucose [Mass/Vol] 80 mg/dL Normal 74-106 [facility] Comment on above: Performed By: #### C MP, LIPID, TSH #### [facility] [address] [address] [address] Hugh Landis Potassium [Moles/Vol] 5.5 mmol/L Critically high 3.5-5.1 [facility] Comment on above: Performed By: #### C MP, LIPID, TSH #### [facility] [address] [place] [address] Dr. Hugh Landis Protein [Mass/Vol] 7.9 g/dL Normal 6.4-8.2 [facility] Comment on above: Performed By: #### C MP, LIPID, TSH #### [facility] [address] [place] [address] Dr. Hugh Landis Sodium [Moles/Vol] 138 mmol/L Normal 136-145 [facility] Comment on above: Performed By: #### C MP, LIPID, TSH #### [facility] [address] [place] [address] Dr. Hugh Landis Urea nitrogen [Mass/Vol] 47.0 mg/dL Critically high 7.0-18.0 [facility] Comment on above: Performed By: #### C MP, LIPID, TSH #### [facility] [address] [place] [address] Dr. Hugh Landis Urea nitrogen/Creatinine [Mass ratio] 17.5 mg/mg Normal [facility] Comment on above: Performed By: #### C MP, LIPID, TSH #### [facility] [address] [place] [address] Dr. Hugh Landis TSHon 08-08-2021 TSH 1.069 uIU/mL Normal 0.358-3.740 [facility] Comment on above: Performed By: #### C MP, LIPID, TSH #### [facility] [address] [place] [address] Dr. Hugh Landis TSH RANGE SEE BELOW Normal [facility] Comment on above: Result Comment: <0.3 4 UIU/ml HYPERTHYROID 0.34-5.60 UIU/ml EUTHYROID >5.60 UIU/ml HYPOTHYROID Performed By: #### C MP, LIPID, TSH #### [facility] [address] [place] [address] Dr. Hugh Landis VITAMIN B12on 08-08-2021 Cobalamin (Vitamin B12) [Mass/Vol] 336.0 pg/mL Normal 193.0-986.0 [facility] Comment on above: Performed By: #### C MP, LIPID, TSH #### [facility] [address] [place], [place] [address] Dr. Hugh Landis VITAMIN D 25 OHon 08-08-2021 VIT D 25-OH 36.6 ng/mL Normal [facility] Comment on above: Performed By: #### C MP, LIPID, TSH #### [facility] [address] [place], [place] [address] Dr. Hugh Landis VIT D RANGES SEE BELOW Normal [facility] Comment on above: Result Comment: <20 ng/mL Vit D deficient 20 - <30 ng/mL Vit D insufficient 30 - 100 ng/mL Vit D sufficient >100 ng/mL Potential Toxicity Performed By: #### C MP, LIPID, TSH #### [facility] [address] [place] [address] Dr. Hugh Landis KNEE RIGHT 3 Son 2 KNEE RIGHT 3 [facility] Department of Radiology [address] [place] [id number] ======== Patient Name: SUKHDEEP SIMENTAL : [...] disruption. Electronically signed: Cole Richmond. Transcribed by: [email or web address], User Resident: Electronically Signed by: COLE RICHMOND @ 07/23/2021 10:50 PM Normal The [facility] Comment on above: Order Comment: Evalu ate CBCon 07-18-2021 Erythrocyte distribution width (RBC) [Ratio] 13.5 % Normal 11.8-14.4 [facility] Comment on above: Performed By: #### C BC, PT, PTT, BMP #### [facility] [address] [place] [address] Diver Assistant: Good Melendez MD #### ANICOT #### [facility] [address] [place], [place] [id number] Diver Assistant: Troy Link MD Hematocrit (Bld) [Volume fraction] 39.1 % Low 40.7-50.3 [facility] Comment on above: Performed By: #### C BC, PT, PTT, BMP #### [facility] [address] [place] [id number] Diver Assistant: Good Melendez MD #### ANICOT #### [facility] [address] [place], [place] [id number] Diver Assistant: Troy Link MD Hemoglobin (Bld) [Mass/Vol] 12.3 g/dL Low 13.0-17.0 [facility] Comment on above: Performed By: #### C BC, PT, PTT, BMP #### [address] [id number] Diver Assistant: Good Melendez MD #### ANICOT #### [facility] [address] [place], [place] [id number] Diver Assistant: Troy Link MD MCH (RBC) [Entitic mass] 28.8 pg Normal 25.2-33.5 [facility] Comment on above: Performed By: #### C BC, PT, PTT, BMP #### [address] [id number] Diver Assistant: Good Melendez MD #### ANICOT #### [facility] [address] [place], [place] [id number] Diver Assistant: Troy Link MD MCHC (RBC) [Mass/Vol] 31.5 g/dL Normal 28.4-34.8 [facility] Comment on above: Performed By: #### C BC, PT, PTT, BMP #### [address] [id number] Diver Assistant: Good Melendez MD #### ANICOT #### [facility] [address] [place], [place] [id number] Diver Assistant: Troy Link MD MCV (RBC) [Entitic vol] 91.6 fL Normal 82.6-102.9 [facility] Comment on above: Performed By: #### C BC, PT, PTT, BMP #### [address] [id number] Diver Assistant: Good Melendez MD #### ANICOT #### [facility] [address] [place] [address] Diver Assistant: Troy Link MD NRBC Automated 0.0 per 100 WBC Normal 0.0 [facility] Comment on above: Performed By: #### C BC, PT, PTT, BMP #### [address] [address] Diver Assistant: Good Melendez MD #### ANICOT #### [facility] [address] [place] [address] Diver Assistant: Troy Link MD Platelet mean volume (Bld) [Entitic vol] 9.7 fL Normal 8.1-13.5 [facility] Comment on above: Performed By: #### C BC, PT, PTT, BMP #### [place] [address] Diver Assistant: Good Melendez MD #### ANICOT #### [facility] [address] [place] [address] Diver Assistant: Troy Link MD Platelets (Bld) [#/Vol] 190 10*3/uL Normal 138-453 [facility] Comment on above: Performed By: #### C BC, PT, PTT, BMP #### [address] [address] Diver Assistant: Good Melendez MD #### ANICOT #### [facility] [address] [place] [address] Diver Assistant: Troy Link MD RBC (Bld) [#/Vol] 4.27 10*6/uL Normal 4.21-5.77 [facility] Comment on above: Performed By: #### C BC, PT, PTT, BMP #### [address] [id number] Diver Assistant: Good Melendez MD #### ANICOT #### [facility] [address] [place], [place] [id number] Diver Assistant: Troy Link MD WBC (Bld) [#/Vol] 8.7 10*3/uL Normal 3.5-11.3 [facility] Comment on above: Performed By: #### C BC, PT, PTT, BMP #### [facility] [address] [place] [address] Diver Assistant: Good Melendez MD #### ANICOT #### [facility] [address] [place], [place] [id number] Diver Assistant: Troy Link MD APTTon 07-17-2021 aPTT Coag (Bld) [Time] 20.8 s Normal 20.5-30.5 [facility] Comment on above: Result Comment: IV Heparin Therapy Range: 48.6-77.8 Performed By: #### C BC, PT, PTT, BMP #### [address] [address] Diver Assistant: Good Melendez MD #### ANICOT #### [facility] [address] [place], [place] [id number] Diver Assistant: Troy Link MD aPTT Coag (Bld) [Time] 37.9 s High 20.5-30.5 [facility] Comment on above: Result Comment: IV Heparin Therapy Range: 48.6-77.8 Performed By: #### C BC, PT, PTT, BMP #### [address] [address] Diver Assistant: Good Melendez MD #### ANICOT #### [facility] [address] [place], [place] [id number] Diver Assistant: Troy Link MD aPTT Coag (Bld) [Time] 78.1 s High 20.5-30.5 [facility] Comment on above: Result Comment: IV Heparin Therapy Range: 48.6-77.8 Performed By: #### C BC, PT, PTT, BMP #### [address] [id number] Diver Assistant: Good Melendez MD #### ANICOT #### [facility] [address] [place], [place] [id number] Diver Assistant: Troy Link MD Basic Metab w/rfx MGon 07-17 (cont.) Normal [facility] Comment on above: Result Comment: Aver age GFR for 50-59 years old: 93 mL/min/1.73sq m Chronic Kidney Disease: <60 mL/min/1.73sq m Kidney failure: <15 mL/min/1.73sq m eGFR calculated using average adult body mass. Additional eGFR calculator available at: http://www.NewsCastic.Peakos/multiple_crcl_2011.htm Performed By: #### C BC, PT, PTT, BMP #### [address] [id number] Diver Assistant: Good Melendez MD #### ANAPARNAT #### [facility] [address] [place] [address] Diver Assistant: Troy Link MD Anion gap [Moles/Vol] 9 mmol/L Normal 9-17 [facility] Comment on above: Performed By: #### C BC, PT, PTT, BMP #### [facility] [address] [place] [address] Diver Assistant: Good Melendez MD #### ANICOT #### [facility] [address] [place] [address] Diver Assistant: Troy Link MD Calcium [Mass/Vol] 9.3 mg/dL Normal 8.6-10.4 [facility] Comment on above: Performed By: #### C BC, PT, PTT, BMP #### [address] [address] Diver Assistant: Good Melendez MD #### ANICOT #### [facility] [address] [place] [address] Diver Assistant: Troy Link MD Chloride [Moles/Vol] 106 mmol/L Normal 98-107 [facility] Comment on above: Performed By: #### C BC, PT, PTT, BMP #### [address] [address] Diver Assistant: Good Melendez MD #### ANICOT #### [address] [address] Diver Assistant: Troy Link MD CO2 [Moles/Vol] 23 mmol/L Normal 20-31 [facility] Comment on above: Performed By: #### C BC, PT, PTT, BMP #### [address] [address] Diver Assistant: Good Melendez MD #### ANICOT #### [facility] [address] [place] [address] Diver Assistant: Troy Link MD Creatinine [Mass/Vol] 1.40 mg/dL High 0.70-1.20 [facility] Comment on above: Performed By: #### C BC, PT, PTT, BMP #### [address] [address] Diver Assistant: Good Melendez MD #### ANICOT #### [facility] [address] [place] [address] Diver Assistant: Tryo Link MD GFR, Amer >60 Normal >60 [facility] Comment on above: Performed By: #### C BC, PT, PTT, BMP #### [address] [place] [address] Diver Assistant: Good Melendez MD #### ANICOT #### [facility] [address] [place] [address] Diver Assistant: Troy Link MD GFR,non Amer 52 mL/min Low >60 [facility] Comment on above: Performed By: #### C BC, PT, PTT, BMP #### [address] [address] Diver Assistant: Good Melendez MD #### ANICOT #### [facility] [address] [place] [address] Diver Assistant: Troy Link MD Glucose [Mass/Vol] 170 mg/dL High 70-99 [facility] Comment on above: Performed By: #### C BC, PT, PTT, BMP #### [address] [address] Diver Assistant: Good Melendez MD #### ANICOT #### [facility] [address] [place] [address] Diver Assistant: Troy Link MD Potassium [Moles/Vol] 4.6 mmol/L Normal 3.7-5.3 [facility] Comment on above: Performed By: #### C BC, PT, PTT, BMP #### [address] [address] Diver Assistant: Good Melendez MD #### ANICOT #### [facility] [address] [place] [address] Diver Assistant: Troy Link MD Sodium [Moles/Vol] 138 mmol/L Normal 135-144 [facility] Comment on above: Performed By: #### C BC, PT, PTT, BMP #### [facility] [address] [place] [address] Diver Assistant: Good Melendez MD #### ANICOT #### [facility] [address] [place] [address] Diver Assistant: Troy Link MD Urea nitrogen [Mass/Vol] 33 mg/dL High 6-20 [facility] Comment on above: Performed By: #### C BC, PT, PTT, BMP #### [address] [id number] Diver Assistant: Good Melendez MD #### ANICOT #### [facility] [address] [place] [address] Diver Assistant: Troy Link MD Basic Metabolic Profon 07-17 (cont.) Normal [facility] Comment on above: Result Comment: Aver age GFR for 50-59 years old: 93 mL/min/1.73sq m Chronic Kidney Disease: <60 mL/min/1.73sq m Kidney failure: <15 mL/min/1.73sq m eGFR calculated using average adult body mass. Additional eGFR calculator available at: http://www.NewsCastic.com/multiple_crcl_2011.htm Performed By: #### C BC, PT, PTT, BMP #### [address] [id number] Diver Assistant: Good Melendez MD #### ANICOT #### [facility] [address] [place], [place] [id number] Diver Assistant: Troy Link MD Anion gap [Moles/Vol] 8 mmol/L Low 9-17 [facility] Comment on above: Performed By: #### C BC, PT, PTT, BMP #### [address] [address] Diver Assistant: Good Melendez MD #### ANICOT #### [facility] [address] [place], [place] [id number] Diver Assistant: Troy Link MD Calcium [Mass/Vol] 9.5 mg/dL Normal 8.6-10.4 [facility] Comment on above: Performed By: #### C BC, PT, PTT, BMP #### [address] [address] Diver Assistant: Good Melendez MD #### ANICOT #### [facility] [address] [place], [place] [id number] Diver Assistant: Troy Link MD Chloride [Moles/Vol] 104 mmol/L Normal 98-107 [facility] Comment on above: Performed By: #### C BC, PT, PTT, BMP #### [address] [id number] Diver Assistant: Good Melendez MD #### ANICOT #### [facility] [address] [place], [place] [id number] Diver Assistant: Troy Link MD CO2 [Moles/Vol] 23 mmol/L Normal 20-31 [facility] Comment on above: Performed By: #### C BC, PT, PTT, BMP #### [address] [address] Diver Assistant: Good Melendez MD #### ANICOT #### [facility] [address] [place] [address] Diver Assistant: Troy Link MD Creatinine [Mass/Vol] 1.34 mg/dL High 0.70-1.20 [facility] Comment on above: Performed By: #### C BC, PT, PTT, BMP #### [address] [address] Diver Assistant: Good Melendez MD #### ANICOT #### [facility] [address] [place] [address] Diver Assistant: Troy Link MD GFR, Amer >60 Normal >60 [facility] Comment on above: Performed By: #### C BC, PT, PTT, BMP #### [address] [id number] Diver Assistant: Good Melendez MD #### ANICOT #### [facility] [address] [place], [place] [id number] Diver Assistant: Troy Link MD GFR,non Amer 55 mL/min Low >60 [facility] Comment on above: Performed By: #### C BC, PT, PTT, BMP #### [address] [id number] Diver Assistant: Good Melendez MD #### ANICOT #### [facility] [address] [place] [address] Diver Assistant: Troy Link MD Glucose [Mass/Vol] 136 mg/dL High 70-99 [facility] Comment on above: Performed By: #### C BC, PT, PTT, BMP #### [address] [id number] Diver Assistant: Good Melendez MD #### ANICOT #### [facility] [address] [place] [address] Diver Assistant: Troy Link MD Potassium [Moles/Vol] 4.7 mmol/L Normal 3.7-5.3 [facility] Comment on above: Performed By: #### C BC, PT, PTT, BMP #### [address] [address] Diver Assistant: Good Melendez MD #### ANICOT #### [facility] [address] [place], [place] [id number] Diver Assistant: Troy Link MD Sodium [Moles/Vol] 135 mmol/L Normal 135-144 [facility] Comment on above: Performed By: #### C BC, PT, PTT, BMP #### [facility] [address] [place] [address] Diver Assistant: Good Melendez MD #### ANICOT #### [facility] [address] [place] [address] Diver Assistant: Troy Link MD Urea nitrogen [Mass/Vol] 31 mg/dL High 6-20 [facility] Comment on above: Performed By: #### C BC, PT, PTT, BMP #### [address] [address] Diver Assistant: Good Melendez MD #### ANICOT #### [facility] [address] [place], [place] [id number] Diver Assistant: Troy Link MD Fibrinogenon 07-17-2021 Fibrinogen 404 mg/dL Normal 140-420 [facility] Comment on above: Performed By: #### C BC, PT, PTT, BMP #### [address] [address] Diver Assistant: Good Melendez MD #### ANICOT #### [facility] [address] [place], [place] [id number] Diver Assistant: Troy Link MD Fibrinogen 395 mg/dL Normal 140-420 [facility] Comment on above: Performed By: #### C BC, PT, PTT, BMP #### [facility] [address] [place] [address] Diver Assistant: Good Melendez MD #### ANICOT #### [facility] [address] [place] [address] Diver Assistant: Troy Link MD Hemoglobin A1Con 07-17-2021 Glucose [Mass/Vol] 169 mg/dL Normal [facility] Comment on above: Result Comment: The ADA and AACC recommend providing the estimated average glucose result to permit better patient understanding of their HBA1c result. Performed By: #### C BC, PT, PTT, BMP #### [facility] [address] [place] [address] Diver Assistant: Good Melendez MD #### ANICOT #### [facility] [address] [place], [place] [id number] Diver Assistant: Troy Link MD HbA1c (Bld) [Mass fraction] 7.5 % High 4.0-6.0 [facility] Comment on above: Performed By: #### C BC, PT, PTT, BMP #### [facility] [address] [place] [address] Diver Assistant: Good Melendez MD #### ANICOT #### [facility] [address] [place] [address] Diver Assistant: Troy Link MD PTon 07-17-2021 INR Coag (PPP) [Relative time] 1.2 {INR} Normal [facility] Comment on above: Result Comment: Therapeutic Range: Moderate Anticoagulant Intensity: INR = 2.0-3.0 High Anticoagulant Intensity: INR = 2.5-3.5 Performed By: #### C BC, PT, PTT, BMP #### [facility] [address] [place] [address] Diver Assistant: Good Melendez MD #### ANICOT #### [facility] [address] [place], [place] [id number] Diver Assistant: Troy Link MD PT Coag (PPP) [Time] 12.6 s High 9.1-12.3 [facility] Comment on above: Performed By: #### C BC, PT, PTT, BMP #### [facility] [address] [place] [address] Diver Assistant: Good Melendez MD #### ANICOT #### [facility] [address] [place], [place] [id number] Diver Assistant: Troy Link MD Troponinon 07-17-2021 Troponin, High Sens 38 ng/L High 0-22 [facility] Comment on above: Result Comment: High Sensitivity Troponin values cannot be compared with other Troponin methodologies. Patients with high levels of Biotin oral intake (i.e >5mg/day) may have falsely decreased Troponin levels. Samples collected within 8 hours of biotin intake may require additional information for diagnosis. Performed By: #### C BC, PT, PTT, BMP #### [facility] [address] [place] [address] Diver Assistant: Good Melendez MD #### ANICOT #### [facility] [address] [place], [place] [id number] Diver Assistant: Troy Link MD APTTon 07-16-2021 aPTT Coag (Bld) [Time] 51.1 s High 20.5-30.5 [facility] Comment on above: Result Comment: IV Heparin Therapy Range: 48.6-77.8 Performed By: #### C BC, PT, PTT, BMP #### [facility] [address] [place] [phone] Diver Assistant: Good Melendez MD #### ANICOT #### [facility] [address] [place], [place] [id number] Diver Assistant: Troy Link MD aPTT Coag (Bld) [Time] 31.1 s High 20.5-30.5 [facility] Comment on above: Result Comment: IV Heparin Therapy Range: 48.6-77.8 Performed By: #### C BC, PT, PTT, BMP #### [facility] [address] [place] [address] Diver Assistant: Good Melendez MD #### ANICOT #### [facility] [address] [place], [place] [id number] Diver Assistant: Troy Link MD Brain Natri. Peptideon 07-16 Natriuretic peptide B (Bld) [Mass/Vol] 1492 pg/mL High <300 [facility] Comment on above: Result Comment: An age-independent cutoff point of 300 pg/ml has a 98% negative predictive value excluding acute heart failure. Performed By: #### C BC, PT, PTT, BMP #### [facility] [address] [place] [address] Diver Assistant: Good Melendez MD #### ANICOT #### [facility] [address] [place], [place] [id number] Diver Assistant: Troy Link MD [facility] Erythrocyte distribution width (RBC) [Ratio] 13.6 % Normal 11.8-14.4 [facility] Comment on above: Performed By: #### C BC, PT, PTT, BMP #### [facility] [address] [place] [address] Diver Assistant: Good Melendez MD #### ANICOT #### [facility] [address] [place] [address] Diver Assistant: Troy Link MD Hematocrit (Bld) [Volume fraction] 40.3 % Low 40.7-50.3 [facility] Comment on above: Performed By: #### C BC, PT, PTT, BMP #### [facility] [address] [place] [address] Diver Assistant: Good Melendez MD #### ANICOT #### [facility] [address] [place] [address] Diver Assistant: Troy Link MD Hemoglobin (Bld) [Mass/Vol] 13.0 g/dL Normal 13.0-17.0 [facility] Comment on above: Performed By: #### C BC, PT, PTT, BMP #### [facility] [address] [place] [address] [phone] Diver Assistant: Good Melendez MD #### ANICOT #### [facility] [address] [place] [address] Diver Assistant: Troy Link MD MCH (RBC) [Entitic mass] 28.7 pg Normal 25.2-33.5 [facility] Comment on above: Performed By: #### C BC, PT, PTT, BMP #### [address] [address] Diver Assistant: Good Melendez MD #### ANICOT #### [facility] [address] [place] [address] Diver Assistant: Troy Link MD MCHC (RBC) [Mass/Vol] 32.3 g/dL Normal 28.4-34.8 [facility] Comment on above: Performed By: #### C BC, PT, PTT, BMP #### [address] [address] Diver Assistant: Good Melendez MD #### ANICOT #### [address] [address] Diver Assistant: Troy Link MD MCV (RBC) [Entitic vol] 89.0 fL Normal 82.6-102.9 [facility] Comment on above: Performed By: #### C BC, PT, PTT, BMP #### [address] [address] Diver Assistant: Good Melendez MD #### ANICOT #### [facility] [address] [place] [address] Diver Assistant: Troy Link MD NRBC Automated 0.0 per 100 WBC Normal 0.0 [facility] Comment on above: Performed By: #### C BC, PT, PTT, BMP #### [facility] [address] Diver Assistant: Good Melendez MD #### ANICOT #### [facility] [address] [place] [address] Diver Assistant: Troy Link MD Platelet mean volume (Bld) [Entitic vol] 9.6 fL Normal 8.1-13.5 [facility] Comment on above: Performed By: #### C BC, PT, PTT, BMP #### [address] [address] Diver Assistant: Good Melendez MD #### ANICOT #### [facility] [address] [place] [address] Diver Assistant: Troy Link MD Platelets (Bld) [#/Vol] 203 10*3/uL Normal 138-453 [facility] Comment on above: Performed By: #### C BC, PT, PTT, BMP #### [address] [address] Diver Assistant: Good Melendez MD #### ANICOT #### [facility] [address] [place] [address] Diver Assistant: Troy Link MD RBC (Bld) [#/Vol] 4.53 10*6/uL Normal 4.21-5.77 [facility] Comment on above: Performed By: #### C BC, PT, PTT, BMP #### [address] [address] Diver Assistant: Good Melendez MD #### ANICOT #### [facility] [address] [place] [address] Diver Assistant: Troy Link MD WBC (Bld) [#/Vol] 6.8 10*3/uL Normal 3.5-11.3 [facility] Comment on above: Performed By: #### C BC, PT, PTT, BMP #### [facility] [address] [place] [address] Diver Assistant: Good Melendez MD #### YASSINET #### [facility] [address] [place], [place] [id number] Diver Assistant: Troy Link MD Troponinon 07-16-2021 Troponin, High Sens 59 ng/L Critically high 0-22 [facility] Comment on above: Result Comment: High Sensitivity Troponin values cannot be compared with other Troponin methodologies. Patients with high levels of Biotin oral intake (i.e >5mg/day) may have falsely decreased Troponin levels. Samples collected within 8 hours of biotin intake may require additional information for diagnosis. Performed By: #### C BC, PT, PTT, BMP #### [facility] [address] [place] [address] Diver Assistant: Good Melendez MD #### YASSINET #### [facility] [address] [place] [address] Diver Assistant: Troy Link MD EKG 12 LeadOrdered By: Matias Varela on 05-26-2021 Atrial Rate 108 BPM [place] Phone: P Blackburn -96 degrees [place] Phone: P-R Interval 192 ms [place] Phone: Q-T Interval 348 ms [place] Phone: QRS Duration 94 ms [place] Phone: QTc Calculation (Bazett) 466 ms [place] Phone: R Blackburn -116 degrees [place] Phone: T Blackburn -114 degrees [place] Phone: Ventricular Rate 108 BPM [employer] Work Phone: [place] Phone: EKG 12 Leadon 05-26-2021 Arm lead reversal Sinus Tachycardia V Leads placement error Repeat ECG When compared with ECG of 08-MAY-2021 11:42, Significant changes have occurred PN STV Matias Andrade MD - 05/26/2021 Arm lead reversal Sinus Tachycardia V Leads placement error Repeat ECG When compared with ECG of 08-MAY-2021 11:42, Significant changes have occurred [employer] Work Phone: SURGICAL PATHOLOGY REPORTon 05-26-2021 Surgical [...] with no areas of granularity or masses. Network Control Technician sections 1cs. tm Microscopic Description Sections of gastric wall show lamina propria without evidence of significant inflammation. There is no evidence of intestinal metaplasia or dysplasia. There is no evidence of organisms suspicious for Helicobacter with the routine H&E stain. SURGICAL PATHOLOGY CONSULTATION Patient Name: SUKHDEEP SIMENTAL [facility] Rec: [id number] Path Number: [id number] [facility] ANATOMIC PATHOLOGY [address] [place] [address]. [place], [place] [phone] [facility] Basic Metabolic Panelon 03-3 Anion gap [Moles/Vol] 10 mmol/L 9 - 17 mmol/L [facility] Calcium [Mass/Vol] 9.1 mg/dL 8.6 - 10. 4 mg/dL [facility] Chloride [Moles/Vol] 106 mmol/L 98 - 10 7 mmol/L [facility] CO2 [Moles/Vol] 23 mmol/L 20 - 31 mmol/L [facility] Creatinine [Mass/Vol] 1.1 mg/dL 0.70 - 1.20 mg/dL [facility] GFR >60 >60 mL/min [facility] GFR Non- >60 >60 mL/min [facility] GFR/1.73 sq M.predicted MDRD (S/P/Bld) [Vol rate/Area] [facility] Comment on above: Average GFR for 50-5 9 years old: 93 mL/min/1.73sq m Chronic Kidney Disease: <60 mL/min/1.73sq m Kidney failure: <15 mL/min/1.73sq m eGFR calculated using average adult body mass. Additional eGFR calculator available at: http://www.[employer]/Plutora_crcl_2012.htm Glucose [Mass/Vol] 127 mg/dL High 70 - 99 mg/dL [facility] Interpretation and review of laboratory results Abnormal [facility] Potassium [Moles/Vol] 4.8 mmol/L 3.7 - 5.3 mmol/L [facility] Sodium [Moles/Vol] 139 mmol/L 135 - 144 mmol/L [facility] Urea nitrogen (BldV) [Mass/Vol] 24 mg/dL High 6 - 20 mg/dL [facility] Basic Metabolic Profon 05-25 (cont.) Normal [facility] Comment on above: Result Comment: Aver age GFR for 50-59 years old: 93 mL/min/1.73sq m Chronic Kidney Disease: <60 mL/min/1.73sq m Kidney failure: <15 mL/min/1.73sq m eGFR calculated using average adult body mass. Additional eGFR calculator available at: http://www.[employer]/Plutora_crcl_2012.htm Performed By: #### C BC, PT, PTT, BMP #### [facility] [address] [place], [place] [id number] Diver Assistant: Good Melendez MD #### JIMENA #### [facility] [address] [place] [address] Diver Assistant: Troy Link MD Anion gap [Moles/Vol] 10 mmol/L Normal - [facility] Comment on above: Performed By: #### C BC, PT, PTT, BMP #### [facility] [address] [place] [address] Diver Assistant: Good Melendez MD #### ANICOT #### [facility] [address] [place], [place] [id number] Diver Assistant: Troy Link MD Calcium [Mass/Vol] 9.1 mg/dL Normal 8.6-10.4 [facility] Comment on above: Performed By: #### C BC, PT, PTT, BMP #### [address] [address] Diver Assistant: Good Melendez MD #### ANICOT #### [address] [id number] Diver Assistant: Troy Link MD Chloride [Moles/Vol] 106 mmol/L Normal 98-107 [facility] Comment on above: Performed By: #### C BC, PT, PTT, BMP #### [address] [address] Diver Assistant: Good Melendez MD #### ANICOT #### [address] [id number] Diver Assistant: Troy Link MD CO2 [Moles/Vol] 23 mmol/L Normal 20-31 [facility] Comment on above: Performed By: #### C BC, PT, PTT, BMP #### [address] [address] Diver Assistant: Good Melendez MD #### ANICOT #### [facility] [address] [place], [place] [id number] Diver Assistant: Troy Link MD Creatinine [Mass/Vol] 1.10 mg/dL Normal 0.70-1.20 [facility] Comment on above: Performed By: #### C BC, PT, PTT, BMP #### [facility] [address] [place] [address] Diver Assistant: Good Melendez MD #### ANICOT #### [facility] [address] [place], [place] [id number] Diver Assistant: Troy Link MD GFR, Amer >60 Normal >60 [facility] Comment on above: Performed By: #### C BC, PT, PTT, BMP #### [facility] [address] [place] [address] Diver Assistant: Good Melendez MD #### ANICOT #### [facility] [address] [place] [address] Diver Assistant: Troy Link MD GFR,non Amer >60 Normal >60 [facility] Comment on above: Performed By: #### C BC, PT, PTT, BMP #### [address] [address] Diver Assistant: Good Melendez MD #### ANICOT #### [facility] [address] [place] [address] Diver Assistant: Troy Link MD Glucose [Mass/Vol] 127 mg/dL High 70-99 [facility] Comment on above: Performed By: #### C BC, PT, PTT, BMP #### [facility] [address] [place] [address] Diver Assistant: Good Melendez MD #### ANICOT #### [facility] [address] [place] [address] Diver Assistant: Troy Link MD Potassium [Moles/Vol] 4.8 mmol/L Normal 3.7-5.3 [facility] Comment on above: Performed By: #### C BC, PT, PTT, BMP #### [facility] [address] [place] [phone] Diver Assistant: Good Melendez MD #### ANICOT #### [facility] [address] [place] [address] Diver Assistant: Troy Link MD Sodium [Moles/Vol] 139 mmol/L Normal 135-144 [facility] Comment on above: Performed By: #### C BC, PT, PTT, BMP #### [address] [address] Diver Assistant: Good Melendez MD #### ANICOT #### [facility] [address] [place] [address] Diver Assistant: Troy Link MD Urea nitrogen [Mass/Vol] 24 mg/dL High 6-20 [facility] Comment on above: Performed By: #### C BC, PT, PTT, BMP #### [address] [address] Diver Assistant: Good Melendez MD #### ANICOT #### [facility] [address] [place] [address] Diver Assistant: Troy Link MD [facility] Erythrocyte distribution width (RBC) [Ratio] 13.9 % Normal 11.8-14.4 [facility] Comment on above: Performed By: #### C BC, PT, PTT, BMP #### [facility] [address] [place] [address] Diver Assistant: Good Melendez MD #### ANICOT #### [facility] [address] [place] [address] Diver Assistant: Troy Link MD Hematocrit (Bld) [Volume fraction] 39.5 % Low 40.7-50.3 [facility] Comment on above: Performed By: #### C BC, PT, PTT, BMP #### [address] [address] Diver Assistant: Good Melendez MD #### ANICOT #### [facility] [address] [place] [address] Diver Assistant: Troy Link MD Hemoglobin (Bld) [Mass/Vol] 12.2 g/dL Low 13.0-17.0 [facility] Comment on above: Performed By: #### C BC, PT, PTT, BMP #### [address] [address] Diver Assistant: Good Melendez MD #### ANICOT #### [facility] [address] [place] [address] Diver Assistant: Troy Link MD MCH (RBC) [Entitic mass] 30.2 pg Normal 25.2-33.5 [facility] Comment on above: Performed By: #### C BC, PT, PTT, BMP #### [address] [address] Diver Assistant: Good Melendez MD #### ANICOT #### [facility] [address] [place] [address] Diver Assistant: Troy Link MD MCHC (RBC) [Mass/Vol] 30.9 g/dL Normal 28.4-34.8 [facility] Comment on above: Performed By: #### C BC, PT, PTT, BMP #### [address] [address] Diver Assistant: Good Melendez MD #### ANICOT #### [facility] [address] [place] [address] Diver Assistant: Troy Link MD MCV (RBC) [Entitic vol] 97.8 fL Normal 82.6-102.9 [facility] Comment on above: Performed By: #### C BC, PT, PTT, BMP #### [address] [address] Diver Assistant: Good Melendez MD #### ANICOT #### [facility] [address] [place] [address] Diver Assistant: Troy Link MD NRBC Automated 0.0 per 100 WBC Normal 0.0 [facility] Comment on above: Performed By: #### C BC, PT, PTT, BMP #### [address] [address] Diver Assistant: Good Melendez MD #### ANICOT #### [facility] [address] [place], [place] [id number] Diver Assistant: Troy Link MD Platelet mean volume (Bld) [Entitic vol] 8.8 fL Normal 8.1-13.5 [facility] Comment on above: Performed By: #### C BC, PT, PTT, BMP #### [address] [address] Diver Assistant: Good Melendez MD #### ANICOT #### [facility] [address] [place] [address] Diver Assistant: Troy Link MD Platelets (Bld) [#/Vol] 263 10*3/uL Normal 138-453 [facility] Comment on above: Performed By: #### C BC, PT, PTT, BMP #### [address] [address] Diver Assistant: Good Melendez MD #### ANICOT #### [facility] [address] [place], [place] [id number] Diver Assistant: Troy Link MD RBC (Bld) [#/Vol] 4.04 10*6/uL Low 4.21-5.77 [facility] Comment on above: Performed By: #### C BC, PT, PTT, BMP #### [facility] [address] [place], [place] [id number] Diver Assistant: Good Melendez MD #### ANAPARNAT #### [facility] [address] [place], [place] [id number] Diver Assistant: Troy Link MD WBC (Bld) [#/Vol] 10.8 10*3/uL Normal 3.5-11.3 [facility] Comment on above: Performed By: #### C BC, PT, PTT, BMP #### [facility] [address] [place] [address] Diver Assistant: Good Melendez MD #### ANICOT #### [facility] [address] [place] [address] Diver Assistant: Troy Link MD Hematocrit (Bld) [Volume fraction] 39.5 % Low 40.7 - 50.3 % [facility] Hemoglobin.gastroint estinal spec 1 Ql (Stl) 12.2 g/dL Low 13.0 - 17.0 g/dL [facility] Interpretation and review of laboratory results Abnormal [facility] MCH (RBC) [Entitic mass] 30.2 pg 25.2 - 33.5 pg [facility] MCHC (RBC) [Mass/Vol] 30.9 g/dL 28.4 - 34.8 g/dL [facility] MCV (RBC) [Entitic vol] 97.8 fL 82.6 - 102.9 fL [facility] NRBC Automated 0.0 0.0 per 100 WBC [facility] Platelet distribution width (Bld) [Ratio] 13.9 % 11.8 - 14.4 % [facility] Platelet mean volume (Bld) [Entitic vol] 8.8 fL 8.1 - 13.5 fL [facility] Platelets (Bld) [#/Vol] 263 10*3/uL [facility] RBC (Bld) [#/Vol] 4.04 10*6/uL Low 4.21 - 5.7 7 m/uL [facility] WBC (Bld) [#/Vol] 10.8 10*3/uL [facility] Magnesiumon 05-25-2021 Magnesium [Mass/Vol] 1.9 mg/dL Normal 1.6-2.6 [facility] Comment on above: Performed By: #### C BC, PT, PTT, BMP #### [facility] [place], [place] [id number] Diver Assistant: Good Melendez MD #### ANICOT #### [facility] [address] [place] [address] Diver Assistant: Troy Link MD Magnesium [Mass/Vol] 1.9 mg/dL 1.6 - 2 .6 mg/dL [facility] Surgical Pathologyon 022 Surgical Pathology (NOTE) [...] with no areas of granularity or masses. Network Control Technician sections 1cs. tm Microscopic Description Sections of gastric wall show lamina propria without evidence of significant inflammation. There is no evidence of intestinal metaplasia or dysplasia. There is no evidence of organisms suspicious for Helicobacter with the routine CANDY stain. SURGICAL PATHOLOGY CONSULTATION Patient Name: SUKHDEEP SIMENTAL [facility] Rec: [id number] Path Number: [id number] [facility] ANATOMIC PATHOLOGY [address] [place] [phone] Normal [facility] Comment on above: Performed By: #### C BC, PT, PTT, BMP #### [facility] [place], [place] [id number] Diver Assistant: Good Melendez MD #### ANICOT #### [facility] [address] [place] [address] Diver Assistant: Troy Link MD Basic Metabolic Panelon 04-27 Anion gap [Moles/Vol] 13 mmol/L 9 - 17 mmol/L [facility] Calcium [Mass/Vol] 9.1 mg/dL 8.6 - 10. 4 mg/dL [facility] Chloride [Moles/Vol] 102 mmol/L 98 - 10 7 mmol/L [facility] CO2 [Moles/Vol] 17 mmol/L Low 20 - 31 mmol/L [facility] Creatinine [Mass/Vol] 1.16 mg/dL 0.70 - 1.20 mg/dL [facility] GFR >60 >60 mL/min [facility] GFR Non- >60 >60 mL/min [facility] GFR/1.73 sq M.predicted MDRD (S/P/Bld) [Vol rate/Area] [facility] Comment on above: Average GFR for 50-5 9 years old: 93 mL/min/1.73sq m Chronic Kidney Disease: <60 mL/min/1.73sq m Kidney failure: <15 mL/min/1.73sq m eGFR calculated using average adult body mass. Additional eGFR calculator available at: http://www.[employer]/multiple_crcl_2012.htm Glucose [Mass/Vol] 203 mg/dL High 70 - 99 mg/dL [facility] Interpretation and review of laboratory results Abnormal [facility] Potassium [Moles/Vol] 4.2 mmol/L 3.7 - 5.3 mmol/L [facility] Sodium [Moles/Vol] 132 mmol/L Low 135 - 144 mmol/L [facility] Urea nitrogen (BldV) [Mass/Vol] 29 mg/dL High 6 - 20 mg/dL [facility] Basic Metabolic Profon 05-24 (cont.) Normal [facility] Comment on above: Result Comment: Aver age GFR for 50-59 years old: 93 mL/min/1.73sq m Chronic Kidney Disease: <60 mL/min/1.73sq m Kidney failure: <15 mL/min/1.73sq m eGFR calculated using average adult body mass. Additional eGFR calculator available at: http://www.[employer]/multiple_crcl_2012.htm Performed By: #### C BC, BMP #### [address] [address] Diver Assistant: Good Melendez MD Anion gap [Moles/Vol] 13 mmol/L Normal 9-17 [facility] Comment on above: Performed By: #### C BC, BMP #### [address] [address] Diver Assistant: Good Melendez MD Calcium [Mass/Vol] 9.1 mg/dL Normal 8.6-10.4 [facility] Comment on above: Performed By: #### C JASE, BMP #### [address] [address] Diver Assistant: Good Melendez MD Chloride [Moles/Vol] 102 mmol/L Normal 98-107 [facility] Comment on above: Performed By: #### C BC, BMP #### [address] [address] Diver Assistant: Good Melendez MD CO2 [Moles/Vol] 17 mmol/L Low 20-31 [facility] Comment on above: Performed By: #### C BC, BMP #### [address] [address] Diver Assistant: Good Melendez MD Creatinine [Mass/Vol] 1.16 mg/dL Normal 0.70-1.20 [facility] Comment on above: Performed By: #### C BC, BMP #### [address] [address] Diver Assistant: Good Melendez MD GFR, Amer >60 Normal >60 [facility] Comment on above: Performed By: #### C BC, BMP #### [facility] [address] [place] [address] Diver Assistant: Good Melendez MD GFR,non Amer >60 Normal >60 [facility] Comment on above: Performed By: #### C BC, BMP #### [facility] [address] [place] [address] Diver Assistant: Good Melendez MD Glucose [Mass/Vol] 203 mg/dL High 70-99 [facility] Comment on above: Performed By: #### C BC, BMP #### [facility] [address] [place] [address] Diver Assistant: Good Melendez MD Potassium [Moles/Vol] 4.2 mmol/L Normal 3.7-5.3 [facility] Comment on above: Performed By: #### C BC, BMP #### [facility] [address] [place] [address] Diver Assistant: Good Melendez MD Sodium [Moles/Vol] 132 mmol/L Low 135-144 [facility] Comment on above: Performed By: #### C BC, BMP #### [facility] [address] [place] [address] Diver Assistant: Good Melendez MD Urea nitrogen [Mass/Vol] 29 mg/dL High 6-20 [facility] Comment on above: Performed By: #### C BC, BMP #### [facility] [address] [place] [address] Diver Assistant: Good Melendez MD CBCon 05-24-2021 Erythrocyte distribution width (RBC) [Ratio] 14.0 % Normal 11.8-14.4 [facility] Comment on above: Performed By: #### C BC, BMP #### [facility] [address] [place] [address] Diver Assistant: Good Melendez MD Hematocrit (Bld) [Volume fraction] 41.0 % Normal 40.7-50.3 [facility] Comment on above: Performed By: #### C BC, BMP #### [address] [address] Diver Assistant: Good Melendez MD Hemoglobin (Bld) [Mass/Vol] 12.7 g/dL Low 13.0-17.0 [facility] Comment on above: Performed By: #### C BC, BMP #### [facility] [address] [place] [address] Diver Assistant: Good Melendez MD MCH (RBC) [Entitic mass] 29.5 pg Normal 25.2-33.5 [facility] Comment on above: Performed By: #### C JASE, BMP #### [address] [address] Diver Assistant: Good Melendez MD MCHC (RBC) [Mass/Vol] 31.0 g/dL Normal 28.4-34.8 [facility] Comment on above: Performed By: #### C JASE, BMP #### [address] [address] Diver Assistant: Good Melendez MD MCV (RBC) [Entitic vol] 95.3 fL Normal 82.6-102.9 [facility] Comment on above: Performed By: #### C BC, BMP #### [facility] [address] [place] [address] Diver Assistant: Good Melendez MD NRBC Automated 0.0 per 100 WBC Normal 0.0 [facility] Comment on above: Performed By: #### C BC, BMP #### [facility] [address] [place] [phone] Diver Assistant: Good Melendez MD Platelet mean volume (Bld) [Entitic vol] 8.8 fL Normal 8.1-13.5 [facility] Comment on above: Performed By: #### C BC, BMP #### [facility] [address] [place] [address] Diver Assistant: Good Melendez MD Platelets (Bld) [#/Vol] 273 10*3/uL Normal 138-453 [facility] Comment on above: Performed By: #### C BC, BMP #### [facility] [address] [place] [address] Diver Assistant: Good Melendez MD RBC (Bld) [#/Vol] 4.30 10*6/uL Normal 4.21-5.77 [facility] Comment on above: Performed By: #### C JASE, BMP #### [facility] [address] [place] [address] Diver Assistant: Good Melendez MD WBC (Bld) [#/Vol] 9.6 10*3/uL Normal 3.5-11.3 [facility] Comment on above: Performed By: #### C BC, BMP #### [facility] [address] [place] [address] Diver Assistant: Good Melendez MD CBC without Diffon Hematocrit (Bld) [Volume fraction] 41.0 % 40.7 - 50.3 % [facility] Hemoglobin.gastroint estinal spec 1 Ql (Stl) 12.7 g/dL Low 13.0 - 17.0 g/dL [facility] Interpretation and review of laboratory results Abnormal [facility] MCH (RBC) [Entitic mass] 29.5 pg 25.2 - 33.5 pg [facility] MCHC (RBC) [Mass/Vol] 31.0 g/dL 28.4 - 34.8 g/dL [facility] MCV (RBC) [Entitic vol] 95.3 fL 82.6 - 102.9 fL [facility] NRBC Automated 0.0 0.0 per 100 WBC [facility] Platelet distribution width (Bld) [Ratio] 14.0 % 11.8 - 14.4 % [facility] Platelet mean volume (Bld) [Entitic vol] 8.8 fL 8.1 - 13.5 fL [facility] Platelets (Bld) [#/Vol] 273 10*3/uL [facility] RBC (Bld) [#/Vol] 4.30 10*6/uL 4.21 - 5.7 7 m/uL [facility] WBC (Bld) [#/Vol] 9.6 10*3/uL [facility] COVID-19, Rapidon 05-24-2021 SARS-CoV-2 (COVID-19) RNA MUKUL+probe Ql (Unsp spec) Not detected Not Detected [facility] Comment on above: Rapid NAAT: The [...] management decisions. Fact sheet for Healthcare Providers: https://www.fda.gov/media/316050/download Fact sheet for Patients: https://www.fda.gov/media/492291/download Methodology: Isothermal Nucleic Acid Amplification Specimen Description .NASOPHARYNGEAL SWAB [facility] Calcium, Ionicon 05-24-2021 Calcium [Moles/Vol] 1.31 mmol/L Normal 1.13-1.33 [facility] Comment on above: Performed By: #### I OCSETH MG, BRITTANIE #### [facility] [place] [address] Diver Assistant: Good Melendez MD Calcium, Ionizedon Calcium [Moles/Vol] 1.31 mmol/L 1.13 - 1 .33 mmol/L [facility] Magnesiumon 05-24-2021 Magnesium [Mass/Vol] 2.0 mg/dL Normal 1.6-2.6 [facility] Comment on above: Performed By: #### C BC, PT, PTT, BMP #### [facility] [address] [place], [place] [id number] Diver Assistant: Good Melendez MD #### ANICOT #### [facility] [address] [place] [address] Diver Assistant: Troy Link MD Magnesium [Mass/Vol] 2.0 mg/dL 1.6 - 2 .6 mg/dL [facility] No Panel Informationon 05-24 [facility] POC Glucose Fingerstickon Glucose [Mass/Vol] 199 mg/dL High 75 - 110 mg/dL [facility] Interpretation and review of laboratory results Abnormal [facility] Glucose [Mass/Vol] 209 mg/dL High 75 - 110 mg/dL [facility] Interpretation and review of laboratory results Abnormal [facility] POCT Glucoseon 05-24-2021 Glucose [Mass/Vol] 150 mg/dL High 74 - 100 mg/dL [facility] Interpretation and review of laboratory results Abnormal [facility] POTASSIUM (POC)on 05-24-2021 Potassium [Moles/Vol] 3.9 mmol/L 3.5 - 4.5 mmol/L [facility] Phosphoruson 05-24-2021 Phosphate [Mass/Vol] 3.8 mg/dL 2.5 - 4 .5 mg/dL [facility] Phosphorus, Inorg.on 022 Phosphorus, Inorg. 3.8 mg/dL Normal 2.5-4.5 [facility] Comment on above: Performed By: #### C BC, PT, PTT, BMP #### [facility] [address] [place], [place] [id number] Diver Assistant: Good Melendez MD #### ANICOT #### [facility] [address] [place] [address] Diver Assistant: Troy Link MD [id number] 05-24-2021 SARS-CoV-2 (COVID-19) RNA MUKUL+probe Ql (Unsp spec) Not detected Normal NOTDET [facility] Comment on above: Result Comment: Rapid [...] management decisions. Fact sheet for Healthcare Providers: https://www.fda.gov/media/160883/download Fact sheet for Patients: https://www.fda.gov/media/229028/download Methodology: Isothermal Nucleic Acid Amplification Performed By: #### C OVRB #### [facility] [address] [place] [address] Diver Assistant: Good Melendez MD Nicotineon 05-11-2021 [id number] <2 Normal [facility] Comment on above: Performed By: #### C BC, PT, PTT, BMP #### [facility] [address] [place] [address] Diver Assistant: Good Melendez MD #### ANICOT #### [facility] [address] [place] [address] Diver Assistant: Troy Link MD Cotinine <2 Normal [facility] Comment on above: Performed By: #### C BC, PT, PTT, BMP #### [facility] [address] [place] [address] Diver Assistant: Good Melendez MD #### ANICOT #### [facility] [address] [place] [address] Diver Assistant: Troy Link MD Nicotine <2 Normal [facility] Comment on above: Result Comment: (NOT [...] developed and its performance characteristics determined by [facility]. It has not been cleared or approved by the [place] Food and Drug Administration. This test was performed in a CLIA certified laboratory and is intended for clinical purposes. Performed By: [facility] [address] [place] [address] Seo Strategist: Ayse Diaz MD Performed By: #### C BC, PT, PTT, BMP #### [facility] [place] [address] Diver Assistant: Good Melendez MD #### ANICOT #### [facility] [address] [place] [address] Diver Assistant: Troy Link MD Nicotine, Bloodon 05-11-2021 5-[id number] <2 ng/mL [facility] h Cotinine <2 ng/mL [facility] Nicotine <2 ng/mL [facility] Comment on above: (NOTE) Consistent with [...] developed and its performance characteristics determined by [employer]. It has not been cleared or approved by the US Food and Drug Administration. This test was performed in a CLIA certified laboratory and is intended for clinical purposes. Performed By: [facility] [address] [place] [address] Seo Strategist: Ayse Diaz MD [facility] EKG 12 LeadOrdered By: Unkno wn Result on 05-09-2021 Atrial Rate 122 BPM [facility] P Blackburn 55 degrees [facility] P-R Interval 164 ms [facility] Q-T Interval 298 ms [facility] QRS Duration 84 ms [facility] Q[facility] Calculation (Bazett) 424 ms [facility] R Blackburn -11 degrees [facility] T Blackburn 42 degrees [facility] Ventricular Rate 122 BPM [facility] alth [facility] 12 Leadon 05-09-2021 Sinus tachycardia Otherwise normal ECG No previous ECGs available [facility] STV MUSE Result, Unknown Provider - 05/09/2021 Sinus tachycardia Otherwise normal ECG No previous ECGs available [facility] Work Phone: XR CHEST (2 VW)on 05-09-2021 [...] Singh Calero MD 05/09/21 Final result Normal [facility] No acute airspace disease identified. [facility] EXAMINATION: TWO XRAY VIEWS OF [...] effusion. No acute osseous abnormality is identified. [facility] Singh Calero MD - 05/09/2021 [...] identified. IMPRESSION: No acute airspace disease identified. [facility] Work Phone: XR CHEST (2 VW)Ordered By: Carlos Calero on 05-09-2021 [facility] Work Phone: APTTon 05-08-2021 aPTT Coag (Bld) [Time] 23.1 s Normal 20.5-30.5 [facility] Comment on above: Result Comment: IV Heparin Therapy Range: 48.6-77.8 Performed By: #### C BC, PT, PTT, BMP #### [facility] [address] [place], [place] [id number] Diver Assistant: Good Melendez MD #### ANICOT #### [facility] [address] [place] [address] Diver Assistant: Troy Link MD aPTT Coag (Bld) [Time] 23.1 s [facility] Comment on above: IV Heparin Therapy Range: 48.6-77.8 Basic Metabolic Panelon 03- Anion gap [Moles/Vol] 15 mmol/L 9 - 17 mmol/L [facility] Calcium [Mass/Vol] 9.4 mg/dL 8.6 - 10. 4 mg/dL [facility] Chloride [Moles/Vol] 103 mmol/L 98 - 10 7 mmol/L [facility] CO2 [Moles/Vol] 19 mmol/L Low 20 - 31 mmol/L [facility] Creatinine [Mass/Vol] 1.59 mg/dL High 0.70 - 1.20 mg/dL [facility] GFR 55 mL/min Low >60 [facility] GFR Non- 45 mL/min Low >60 [facility] GFR/1.73 sq M.predicted MDRD (S/P/Bld) [Vol rate/Area] [facility] Comment on above: Average GFR for 50-5 9 years old: 93 mL/min/1.73sq m Chronic Kidney Disease: <60 mL/min/1.73sq m Kidney failure: <15 mL/min/1.73sq m eGFR calculated using average adult body mass. Additional eGFR calculator available at: http://www.[employer]/Plutora_crcl_2012.htm Glucose [Mass/Vol] 141 mg/dL High 70 - 99 mg/dL [facility] Interpretation and review of laboratory results Abnormal [facility] Potassium [Moles/Vol] 5.3 mmol/L 3.7 - 5.3 mmol/L [facility] Sodium [Moles/Vol] 137 mmol/L 135 - 144 mmol/L [facility] Urea nitrogen (BldV) [Mass/Vol] 37 mg/dL High 6 - 20 mg/dL [facility] Basic Metabolic Profon 05-08 (cont.) Normal [facility] Comment on above: Result Comment: Aver age GFR for 50-59 years old: 93 mL/min/1.73sq m Chronic Kidney Disease: <60 mL/min/1.73sq m Kidney failure: <15 mL/min/1.73sq m eGFR calculated using average adult body mass. Additional eGFR calculator available at: http://www.[employer]/multiple_crcl_2012.htm Performed By: #### C BC, PT, PTT, BMP #### [facility] [place] [address] Diver Assistant: Good Melendez MD #### ANICOT #### [facility] [address] [place], [place] [id number] Diver Assistant: Troy Link MD Anion gap [Moles/Vol] 15 mmol/L Normal 9-17 [facility] Comment on above: Performed By: #### C BC, PT, PTT, BMP #### [address] [address] Diver Assistant: Good Melendez MD #### ANICOT #### [facility] [address] [place], [place] [id number] Diver Assistant: Troy Link MD Calcium [Mass/Vol] 9.4 mg/dL Normal 8.6-10.4 [facility] Comment on above: Performed By: #### C BC, PT, PTT, BMP #### [address] [address] Diver Assistant: Good Melendez MD #### ANICOT #### [facility] [address] [place] [address] Diver Assistant: Troy Link MD Chloride [Moles/Vol] 103 mmol/L Normal 98-107 [facility] Comment on above: Performed By: #### C BC, PT, PTT, BMP #### [address] [address] Diver Assistant: Good Melendez MD #### ANICOT #### [facility] [address] [place] [address] Diver Assistant: Troy Link MD CO2 [Moles/Vol] 19 mmol/L Low 20-31 [facility] Comment on above: Performed By: #### C BC, PT, PTT, BMP #### [facility] [place] [address] Diver Assistant: Good Melendez MD #### ANICOT #### [facility] [address] [place], [place] [id number] Diver Assistant: Troy Link MD Creatinine [Mass/Vol] 1.59 mg/dL High 0.70-1.20 [facility] Comment on above: Performed By: #### C BC, PT, PTT, BMP #### [facility] [address] [place] [address] Diver Assistant: Good Melendez MD #### ANICOT #### [facility] [address] [place] [address] Diver Assistant: Troy Link MD GFR, Amer 55 mL/min Low >60 [facility] Comment on above: Performed By: #### C BC, PT, PTT, BMP #### [facility] [address] [place] [address] Diver Assistant: Good Melendez MD #### ANICOT #### [facility] [address] [place], [place] [id number] Diver Assistant: Troy Link MD GFR,non Amer 45 mL/min Low >60 [facility] Comment on above: Performed By: #### C BC, PT, PTT, BMP #### [facility] [address] [place] [address] Diver Assistant: Good Melendez MD #### ANICOT #### [facility] [address] [place] [address] Diver Assistant: Troy Link MD Glucose [Mass/Vol] 141 mg/dL High 70-99 [facility] Comment on above: Performed By: #### C BC, PT, PTT, BMP #### [facility] [address] [place], [place] [address], [place] [address] Diver Assistant: Good Melendez MD #### ANICOT #### [facility] [address] [place] [address] Diver Assistant: Troy Link MD Potassium [Moles/Vol] 5.3 mmol/L Normal 3.7-5.3 [facility] Comment on above: Performed By: #### C BC, PT, PTT, BMP #### [address] [phone] Diver Assistant: Good Melendez MD #### ANICOT #### [address] [address] Diver Assistant: Troy Link MD Sodium [Moles/Vol] 137 mmol/L Normal 135-144 [facility] Comment on above: Performed By: #### C BC, PT, PTT, BMP #### [address] [address] Diver Assistant: Good Melendez MD #### ANICOT #### [address] [address] Diver Assistant: Troy Link MD Urea nitrogen [Mass/Vol] 37 mg/dL High 6-20 [facility] Comment on above: Performed By: #### C BC, PT, PTT, BMP #### [address] [address] Diver Assistant: Good Melendez MD #### ANICOT #### [facility] [address] [place] [address] Diver Assistant: Troy Link MD CBCon 05-08-2021 Erythrocyte distribution width (RBC) [Ratio] 14.1 % Normal 11.8-14.4 [facility] Comment on above: Performed By: #### C BC, PT, PTT, BMP #### [address] [place] [address] Diver Assistant: Good Melendez MD #### ANICOT #### [facility] [address] [place] [address] Diver Assistant: Troy Link MD Hematocrit (Bld) [Volume fraction] 43.6 % Normal 40.7-50.3 [facility] Comment on above: Performed By: #### C BC, PT, PTT, BMP #### [facility] [address] [place] [address] Diver Assistant: Good Melendez MD #### ANICOT #### [facility] [address] [place] [address] Diver Assistant: Troy Link MD Hemoglobin (Bld) [Mass/Vol] 13.5 g/dL Normal 13.0-17.0 [facility] Comment on above: Performed By: #### C BC, PT, PTT, BMP #### [address] [address] Diver Assistant: Good Melendez MD #### ANICOT #### [facility] [address] [place] [address] Diver Assistant: Troy Link MD MCH (RBC) [Entitic mass] 29.4 pg Normal 25.2-33.5 [facility] Comment on above: Performed By: #### C BC, PT, PTT, BMP #### [address] [address] Diver Assistant: Good Melendez MD #### ANICOT #### [facility] [address] [place] [address] Diver Assistant: Troy Link MD MCHC (RBC) [Mass/Vol] 31.0 g/dL Normal 28.4-34.8 [facility] Comment on above: Performed By: #### C BC, PT, PTT, BMP #### [facility] [place] [address] Diver Assistant: Good Melendez MD #### ANICOT #### [facility] [address] [place], [place] [id number] Diver Assistant: Troy Link MD MCV (RBC) [Entitic vol] 95.0 fL Normal 82.6-102.9 [facility] Comment on above: Performed By: #### C BC, PT, PTT, BMP #### [address] [id number] Diver Assistant: Good Melendez MD #### ANICOT #### [facility] [address] [place] [address] Diver Assistant: Troy Link MD NRBC Automated 0.0 per 100 WBC Normal 0.0 [facility] Comment on above: Performed By: #### C BC, PT, PTT, BMP #### [address] [address] Diver Assistant: Good Melendez MD #### ANICOT #### [facility] [address] [place] [address] Diver Assistant: Troy Link MD Platelet mean volume (Bld) [Entitic vol] 8.7 fL Normal 8.1-13.5 [facility] Comment on above: Performed By: #### C BC, PT, PTT, BMP #### [address] [address] Diver Assistant: Good Melendez MD #### ANICOT #### [facility] [address] [place] [address] Diver Assistant: Troy Link MD Platelets (Bld) [#/Vol] 279 10*3/uL Normal 138-453 [facility] Comment on above: Performed By: #### C BC, PT, PTT, BMP #### [facility] [place], [place] [phone] Diver Assistant: Good Melendez MD #### ANICOT #### [facility] [address] [place], [place] [id number] Diver Assistant: Troy Link MD RBC (Bld) [#/Vol] 4.59 10*6/uL Normal 4.21-5.77 [facility] Comment on above: Performed By: #### C BC, PT, PTT, BMP #### [facility] [address] [place] [phone] Diver Assistant: Good Melendez MD #### ANICOT #### [facility] [address] [place], [place] [id number] Diver Assistant: Troy Link MD WBC (Bld) [#/Vol] 8.9 10*3/uL Normal 3.5-11.3 [facility] Comment on above: Performed By: #### C BC, PT, PTT, BMP #### [facility] [address] [place] [phone] Diver Assistant: Good Melendez MD #### ANICOT #### [facility] [address] [place], [place] [id number] Diver Assistant: Troy Link MD Hematocrit (Bld) [Volume fraction] 43.6 % 40.7 - 50.3 % [facility] Hemoglobin.gastroint estinal spec 1 Ql (Stl) 13.5 g/dL 13.0 - 17.0 g/dL [facility] MCH (RBC) [Entitic mass] 29.4 pg 25.2 - 33.5 pg [facility] MCHC (RBC) [Mass/Vol] 31.0 g/dL 28.4 - 34.8 g/dL [facility] MCV (RBC) [Entitic vol] 95.0 fL 82.6 - 102.9 fL [facility] NRBC Automated 0.0 0.0 per 100 WBC [facility] Platelet distribution width (Bld) [Ratio] 14.1 % 11.8 - 14.4 % [facility] Platelet mean volume (Bld) [Entitic vol] 8.7 fL 8.1 - 13.5 fL [facility] Platelets (Bld) [#/Vol] 279 10*3/uL [facility] RBC (Bld) [#/Vol] 4.59 10*6/uL 4.21 - 5.7 7 m/uL [facility] WBC (Bld) [#/Vol] 8.9 10*3/uL [facility] No Panel Informationon 05-08 [facility] PTon 05-08-2021 INR Coag (PPP) [Relative time] 1.1 {INR} Normal [facility] Comment on above: Result Comment: Therapeutic Range: Moderate Anticoagulant Intensity: INR = 2.0-3.0 High Anticoagulant Intensity: INR = 2.5-3.5 Performed By: #### C BC, PT, PTT, BMP #### [facility] [address] [place] [address] Diver Assistant: Good Melendez MD #### ANICOT #### [facility] [address] [place] [address] Diver Assistant: Troy Link MD PT Coag (PPP) [Time] 11.2 s Normal 9.1-12.3 [facility] Comment on above: Performed By: #### C BC, PT, PTT, BMP #### [facility] [address] [place] [address] Diver Assistant: Good Melendez MD #### ANICOT #### [facility] [address] [place] [address] Diver Assistant: Troy Link MD Protime-INRon 05-08-2021 INR Coag (Bld) [Relative time] 1.1 {INR} [facility] Comment on above: Therapeutic Range: Moderate Anticoagulant Intensity: INR = 2.0-3.0 High Anticoagulant Intensity: INR = 2.5-3.5 PT Coag (PPP) [Time] 11.2 s [facility] XR CHEST (2 VW)on 05-08-2021 Radiology Study observation (narrative) [facility] Work Phone: CT LUMBAR SPINE W CONTRASTon 02-28-2021 CT LUMBAR SPINE W CONTRAST [facility] Department of Radiology [address] [place] [address] ======== Patient Name: SUKHDEEP SIMENTAL : 1965 Sex: M Age: Race: White Pt. Location: Patient Status: D Ordered Date: 02/13/2021 9:35:00 AM Completed Date: 02/28/2021 02:00 PM Requesting Provider: JASON MILLER Attending Provider: JASON MILLER Report Copy To: Signs & Symptoms: Z98.1 Arthrodesis status I10 History: [place] Comments: Exam: CT LUMBAR SPINE W CONTRAST [...] above Electronically signed: Petar Mg. Transcribed by: [email or web address], User Resident: Electronically Signed by: PETAR MG @ 03/01/2021 02:21 PM Normal [facility] LUMBAR MYELOGRAMon 2 LUMBAR MYELOGRAM [facility] Department of Radiology [address] [place] [phone] ======== Patient Name: SUKHDEEP SIMENTAL : 1965 Sex: M Age: Race: White Pt. Location: 84 Patient Status: O Ordered Date: 02/13/2021 9:35:00 AM Completed Date: 02/28/2021 02:06 PM Requesting Provider: JASON MILLER Attending Provider: JASON MILLER Report Copy To: Signs & Symptoms: Z98.1 Arthrodesis status I10 History: [phone] Is patient on thinners? Eliquis hold 48hrs. 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 Consent was obtained. Timeout: [place] protocol timeout verification performed. PROCEDURE: Estimated blood [...] report. Electronically signed: Petar Mg. Transcribed by: [email or web address], User Resident: OCHOA HONG Electronically Signed by: PETAR MG @ 02/28/2021 03:13 PM I personally read this/these film(s) with this resident Normal [facility] LUMBAR SPINE 4 OR 5 [facility] LUMBAR SPINE 4 OR 5 [facility] Department of Radiology [address] [place] [phone] ======== Patient Name: SUKHDEEP SIMENTAL : 1965 Sex: M Age: Race: White Pt. Location: Patient Status: D Ordered Date: 02/01/2021 1:05:00 PM Completed Date: 02/01/2021 01:12 PM Requesting Provider: JASON MILLER Attending Provider: JASON MILLER Report Copy To: Signs & Symptoms: M54.16 Radiculopathy, lumbar region I10 History: [place] Comments: Views (X-RAY, LUMBAR SPINE): AP, Lateral, [...] Osteopenia. Electronically signed: Ahsan Farmer. Transcribed by: [email or web address], User Resident: Electronically Signed by: AHSAN FARMER @ 02/02/2021 10:14 AM Normal [facility] Comment on above: Order Comment: Views (X-RAY, LUMBAR SPINE): AP, Lateral, L5-S1 Spot, Flexion, Extension C REACTIVE PROTEINon 021 CRP [Mass/Vol] 9.6 mg/L High 0.0-7.0 [facility] Comment on above: Performed By: #### 6 1405 #### [facility] [address] [place] [address], [facility] CBC W/DIFFon 12-15-2020 ABS IMM GRANS 0.1 10*3/uL Normal 0.0-0.2 [facility] Comment on above: Performed By: #### 5 6505, [address] #### [facility] [address] [place] [address], [facility] ABS NEUTROPHILS 6.1 10*3/uL Normal 1.6-7.6 [facility] Comment on above: Performed By: #### 5 6505, [address] #### [facility] [address] [place] [address], [place] Basophils (Bld) [#/Vol] 0.1 10*3/uL Normal 0.0-0.2 [facility] Comment on above: Performed By: #### 5 6505, [address]647 #### [facility] [address] [place] [address], [place] Basophils/100 WBC (Bld) 0.8 % Normal 0.0-1.0 [facility] Comment on above: Performed By: #### 5 6505, 09142 #### [facility] [address] [place] [address], [place] Eosinophils (Bld) [#/Vol] 0.4 10*3/uL Normal 0.0-0.5 [facility] Comment on above: Performed By: #### 5 6505, 58489 #### [facility] [address] [place] [address], [place] Eosinophils/100 WBC (Bld) 4.1 % Normal 0.0-6.0 [facility] Comment on above: Performed By: #### 5 6505, [address] #### [facility] [address] [place] [address], [place] Erythrocyte distribution width (RBC) [Ratio] 12.6 % Normal 11.5-15.0 [facility] Comment on above: Performed By: #### 5 6505, 479[address] #### [facility] [address] [place] [address], [place] Hematocrit (Bld) [Volume fraction] 40.2 % Normal 39.0-50.0 [facility] Comment on above: Performed By: #### 5 6505, 38104 #### [facility] [address] [place] [address], [facility] Hemoglobin (Bld) [Mass/Vol] 12.6 g/dL Low 13.0-17.0 [facility] Comment on above: Performed By: #### 5 6505, 76384 #### [facility] [address] [place] [address], [facility] IMMATURE GRANS 0.7 % Normal 0.0-1.0 [facility] Comment on above: Performed By: #### 5 6505, 76308 #### [facility] [address] [place] [address], [facility] Lymphocytes (Bld) [#/Vol] 2.0 10*3/uL Normal 1.2-4.0 The [facility] Comment on above: Performed By: #### 5 6505, 91977 #### [facility] [address] [place] [address], [facility] Lymphocytes/100 WBC (Bld) 20.6 % Normal 20.0-45.0 [facility] Comment on above: Performed By: #### 5 6505, 81561 #### [facility] [address] [place] [address], [facility] MCH (RBC) [Entitic mass] 30.0 pg Normal 27.0-33.0 [facility] Comment on above: Performed By: #### 5 6505, 29298 #### [facility] [address] [address], [facility] MCHC (RBC) [Mass/Vol] 31.3 g/dL Low 32.0-35.0 [facility] Comment on above: Performed By: #### 5 6505, 74797 #### [facility] [address] [place] [address], [facility] MCV (RBC) [Entitic vol] 95.7 fL Normal 82.0-98.0 [facility] Comment on above: Performed By: #### 5 6505, 96178 #### [facility] [address] [place] [id number], [facility] Monocytes (Bld) [#/Vol] 1.2 10*3/uL High 0.1-1.0 [facility] Comment on above: Performed By: #### 5 6505, 54506 #### [facility] [address] [place] [id number], [facility] MONOS 11.9 % Normal 5.0-12.0 The [facility] Comment on above: Performed By: #### 5 6505, [id number] #### [facility] [address] [place] [id number], [facility] Neutrophils/100 WBC (Bld) 61.9 % Normal 40.0-72.0 The [facility] Comment on above: Performed By: #### 5 6505, 76315 #### [facility] [address] [facility] [place] [id number], [facility] Nucleated RBC/100 WBC (Bld) [Ratio] 0 % Normal 0-0 The [facility] Comment on above: Performed By: #### 5 6505, 19992 #### [facility] [address] [place] [id number], [place] PLAT CNT 335 10*3/uL Normal 150-400 The [facility] Comment on above: Performed By: #### 5 6505, 55597 #### [facility] [address] [place] [address], [facility] RBC (Bld) [#/Vol] 4.20 10*6/uL Normal 4.20-5.70 [facility] Comment on above: Performed By: #### 5 6505, 60966 #### [facility] [address] WBC (Bld) [#/Vol] 9.86 10*3/uL Normal 4.00-10.60 The [facility] Comment on above: Performed By: #### 5 6506, 97607 #### [address] KNEE RIGHT 4 [facility] 1 KNEE RIGHT 4 [facility] Department of Radiology [address] [place] [id number] ======== Patient Name: SUKHDEEP SIMENTAL : 1965 Sex: M Age: Race: White Pt. Location: OUTP Patient Status: D Ordered Date: 12/15/2020 12:25:00 PM Completed Date: 12/15/2020 12:35 PM Requesting Provider: ROBBI PEPE Attending Provider: ROBBI PEPE Report Copy To: Signs & Symptoms: L03.115 cellulitis of rt lower limb History: Comments: evaluate Exam: KNEE RIGHT 4 [facility] ======== KNEE RIGHT 4 [facility] 12/15/2020 12:35 PM CLINICAL INDICATIONS: L03.115 cellulitis [...] report. Electronically signed: Layo Jimenes. Transcribed by: [email or web address], User Resident: LAYO CORDERO Electronically Signed by: LAYO JIMENES @ 12/16/2020 09:18 AM I personally read this/these film(s) with this resident Normal The [facility] Comment on above: Order Comment: evalu ate SEDIMENTATION RATEon 021 SED RATE 77 mm/hr High 0-10 [facility] Comment on above: Performed By: #### 5 6506, 73918 #### [facility] [address] COVID-19 Positive/Negativeon 05-05-2020 COVID-19 Positive/Negative Negative Negative [facility] Comment on above: Reference: NegativeT esting for SARS-CoV-2 by RT-PCRThis test was developed and its performance characteristics determined by [employer]) and validated at the [facility]. This test has not been FDA cleared [...] non-blacks MDRD (S/P/Bld) [Vol rate/Area] mL/min/{1.73_m2} [facility] Otheron 05-05-2020 GFR/1.73 sq M.predicted MDRD (S/P/Bld) [Vol rate/Area] mL/min/{1.73_m2} [facility] Comment on above: GFR estimated refere nce range: According to KDOQI guidelines, <60 ml/min/1.73m2 is sufficient to diagnose a patient with chronic kidney disease. Pharmacy Creatinine Clearance (Chem N/A [facility] Coronavirus 2019 PCR Interp N/A [facility] Serum or plasma calcium eyni urement (mass/volume)on 05-05-2020 Calcium [Mass/Vol] 8.6 mg/dL 8.2-10.2 [facility] Serum or plasma chloride xi surement (moles/volume)on 05-05-2020 Chloride [Moles/Vol] 104 mmol/L 95-114 [facility] Serum or plasma creatinine m easurement with calculation of estimated glomerular filtron 05-05-2020 Creatinine [Mass/Vol] 1.14 mg/dL 0.64-1.27 [facility] Serum or plasma glucose yeni urement (mass/volume)on 05-05-2020 Glucose [Mass/Vol] 178 mg/dL 70-100 [facility] Comment on above: ADA recommended refe rence rangeRandom Glucose Reference Range is dependent on time and content of last meal. Glucose of more than 200 mg/dL in a nonstressed, ambulatory subject supports the diagnosis of Diabetes Mellitus. Serum or plasma potassium me asurement (moles/volume)on 05-05-2020 Potassium [Moles/Vol] 4.0 mmol/L 3.5-5.1 [facility] Serum or plasma sodium measu rement (moles/volume)on 05-05-2020 Sodium [Moles/Vol] 141 mmol/L 136-146 [facility] Serum or plasma total carbon dioxide measurement (moles/volume)on 05-05-2020 CO2 [Moles/Vol] 27.4 mmol/L 22.0-30.0 [facility] Serum or plasma urea nitroge n measurement (mass/volume)on 05-05-2020 Urea nitrogen [Mass/Vol] 18 mg/dL 9-23 [facility] .eGFRon 06-10-2019 eGFR AA >60 Normal >=60 [facility] Comment on above: Result Comment: Resu lt = 0-14.9 mL/min/1.73 m2 Kidney failure or Dialysis Result = 15-29 mL/min/1.73 m2 Severe decrease in GFR Result = 30-59 mL/min/1.73 m2 Moderate decrease in GFR Result >= 60 mL/min/1.73 m2 Normal or increased GFR Performed By: #### E GFR #### [address] [address] eGFR Non-AA >60 Normal >=60 [facility] Comment on above: Result Comment: Resu [...] dosing. Performed By: #### E GFR #### [address] [address] Basic Metabolic Profileon Anion gap [Moles/Vol] 15 mmol/L Normal 7-17 [facility] Comment on above: Performed By: #### C [id number] #### [address] [address] Calcium [Mass/Vol] 9.8 mg/dL Normal 8.5-10.3 [facility] Comment on above: Performed By: #### C [id number] #### [address] [address] Chloride [Moles/Vol] 103 mmol/L Normal 98-110 [facility] Comment on above: Performed By: #### C [id number] #### [address] [address] CO2 [Moles/Vol] 27 mmol/L Normal 22-32 [facility] Comment on above: Performed By: #### C [id number] #### [address] [address] Creatinine [Mass/Vol] 0.98 mg/dL Normal 0.61-1.24 [facility] Comment on above: Performed By: #### C [id number] #### [address] [address] Glucose [Mass/Vol] 198 mg/dL High 70-99 [facility] Comment on above: Performed By: #### C [id number] #### [address] [address] Potassium [Moles/Vol] 4.0 mmol/L Normal 3.4-4.8 [facility] Comment on above: Performed By: #### C [id number] #### [address] [address] Sodium [Moles/Vol] 141 mmol/L Normal 133-142 [facility] Comment on above: Performed By: #### C [id number] #### [address] [address] Urea nitrogen [Mass/Vol] 18 mg/dL Normal 8-26 [facility] Comment on above: Performed By: #### C [id number] #### [address] [address] Urea nitrogen/Creatinine [Mass ratio] 18.4 mg/mg Normal 10.0-20.0 [facility] Comment on above: Performed By: #### C [id number] #### [address] [address] CBCon 06-10-2019 Erythrocyte distribution width (RBC) [Ratio] 13.0 % Normal 11.6-14.8 [facility] Comment on above: Performed By: #### C BCI #### [address] [address] Hematocrit (Bld) [Volume fraction] 46.2 % Normal 41.0-53.0 [facility] Comment on above: Performed By: #### C BCI #### [address] [address] Hemoglobin (Bld) [Mass/Vol] 16.2 g/dL Normal 13.5-17.5 [facility] Comment on above: Performed By: #### C BCI #### [address] [address] MCH (RBC) [Entitic mass] 32.1 pg Normal 27.0-35.0 [facility] Comment on above: Performed By: #### C BCI #### [address] [address] MCHC (RBC) [Mass/Vol] 35.0 % Normal 31.0-37.0 [facility] Comment on above: Performed By: #### C BCI #### [address] [address] MCV (RBC) [Entitic vol] 91.6 fL Normal 80.0-100.0 [facility] Comment on above: Performed By: #### C BCI #### [address] [address] Platelet mean volume (Bld) [Entitic vol] 7.5 fL Normal 6.7-10.6 [facility] Comment on above: Performed By: #### C BCI #### [address] [address] Platelets (Bld) [#/Vol] 263 x10*3/mcL Normal 150-350 [facility] Comment on above: Performed By: #### C BCI #### [address] [address] RBC (Bld) [#/Vol] 5.04 x10*6/mcL Normal 4.30-5.80 [facility] Comment on above: Performed By: #### C BCI #### [address] [address] WBC (Bld) [#/Vol] 9.7 x10*3/mcL Normal 4.5-11.0 [facility] Comment on above: Performed By: #### C BCI #### [address] [address] Hgb A1con 06-10-2019 HbA1c (Bld) [Mass fraction] 134 mg/dL High 68-114 [facility] Comment on above: Result Comment: Math ematical Calc approx. The mean gluc equivalency of A1c Performed By: #### H BA1C #### [address] [address] HbA1c (Bld) [Mass fraction] 6.3 % A1c High 4.0-5.6 [facility] Comment on above: Result Comment: Refe rence Range: 4.0 - 5.6 % Normal 5.7 - 6.4 % Pre-Diabetes > 6.5 % Diabetes Performed By: #### H BA1C #### [address] [address] MRSA, PCRon 06-10-2019 INR Coag (Bld) [Relative time] Negative Normal [facility] Comment on above: Result Comment: [employer] Xpert MRSA Assay is a qualitative in [...] clinician. Performed By: #### M RSAPC #### [address] [address] PTon 06-10-2019 INR Coag (PPP) [Relative time] 1.0 {INR} Normal <=3.5 [facility] Comment on above: Result Comment: INR has no normal range. INR Therapeutic range is: 2.0-3.0 (AF, CVA, TIAs, DVT prophylaxis, acute DVT) 2.5-3.5 ([facility] heart valves, recurrent thrombosis/emboli) Performed By: #### P TINR #### [address] [address] PT Coag (PPP) [Time] 11.9 s Normal 8.9-11.9 [facility] Comment on above: Performed By: #### P TINR #### [address] [address] PTTon 06-10-2019 aPTT Coag (Bld) [Time] 23.0 s Normal 19.2-27.8 [facility] Comment on above: Performed By: #### P TT #### [address] [address] XR Chest 2 Viewson 0 XR Chest [...] Signed in Other Vendor System) Normal [facility] XR LUMBAR SPINE (2-3 VIEWS)o n [...] Juwan Kumar MD 04/16/19 Final result Normal [facility] Limited range of motion without evidence of instability. Multilevel disc degeneration. [place], [place] EXAMINATION: 2 XRAY VIEWS OF THE [...] lower lumbar spine. Spinous processes appear intact. [facility] Incoming Radiant Results From [employer] - 04/16/2019 11:16 AM EST EXAMINATION: 2 [...] without evidence of instability. Multilevel disc degeneration. [facility] LUMBAR SPINE WO CONTRASTo n 04-11-2019 [...] Ahsan Guidry MD 04/11/19 Final result Normal [facility] XR PELVIS (1-2 VIEWS)on 03-28 XR [...] Ahsan Guidry MD 04/11/19 Final result Normal [facility] No acute findings. [place] Phone: EXAMINATION: ONE XRA Y VIEW OF THE PELVIS 04/11/2019 1:24 pm COMPARISON: None. HISTORY: ORDERING SYSTEM PROVIDED HISTORY: fall right buttock pain TECHNOLOGIST PROVIDED HISTORY: fall right buttock pain Reason for Exam: fall buttocks pain Acuity: Acute Type of Exam: Initial FINDINGS: No acute fracture. No widening of the sacroiliac joints. Degenerative changes within the lower lumbar spine. Mild bilateral hip osteoarthritis. [place] Phone: Josafat, [employer] Incoming Radiant Results From [employer] - 04/11/2019 2:02 PM EST EXAMINATION: ONE [...] bilateral hip osteoarthritis. IMPRESSION: No acute findings. [employer] Work Phone: Vital Signs Date Time Vital Sign Value Performing Clinician Facility 02-13-2024 11:22-0500 Body mass index (BMI) [Ratio] 38.99 kg/m2 Ahsan Nienberg PA Work Phone: [facility] 02-13-2024 11:22-0500 Body weight 119.75 kg Ahsan Nienberg PA Work Phone: [facility] 02-13-2024 11:22-0500 Diastolic blood pressure 100 mm[Hg] Ahsan Nienberg PA Work Phone: [facility] 02-13-2024 11:22-0500 Heart rate 92 /min Ahsan Nienberg PA Work Phone: [facility] 02-13-2024 11:22-0500 Respiratory rate 18 /min Ahsan Nienberg PA Work Phone: [facility] 02-13-2024 11:22-0500 Systolic blood pressure 150 mm[Hg] Ahsan Nienberg PA Work Phone: [facility] 12-05-2023 10:05-0400 Body height 175.3 cm Ahsan Nienberg PA Work Phone: [facility] 12-05-2023 10:05-0400 Body mass index (BMI) [Ratio] 39.28 kg/m2 Ahsan Nienberg PA Work Phone: [facility] 12-05-2023 10:05-0400 Body weight 120.66 kg Ahsan Nienberg PA Work Phone: [facility] 12-05-2023 10:05-0400 Diastolic blood pressure 90 mm[Hg] Ahsan Nienberg PA Work Phone: [facility] 12-05-2023 10:05-0400 Heart rate 91 /min Ahsan Nienberg PA Work Phone: [facility] 12-05-2023 10:05-0400 Respiratory rate 16 /min Ahsan Flynn PA Work Phone: [facility] 12-05-2023 10:05-0400 SaO2% (BldA) [Mass fraction] 95 % Ahsan NOVAK Work Phone: [facility] 12-05-2023 10:05-0400 Systolic blood pressure 131 mm[Hg] Ahsan NOVAK Work Phone: [facility] 11-07-2023 11:09-0400 Body height 175.26 cm [facility] 11-07-2023 11:09-0400 Body mass index (BMI) [Ratio] 39 kg/m2 [facility] 11-07-2023 11:09-0400 Body temperature 97.4 [degF] [facility] 11-07-2023 11:09-0400 Body weight 119.86 kg [facility] 11-07-2023 11:09-0400 Diastolic blood pressure 85 mm[Hg] [facility] 11-07-2023 11:09-0400 Heart rate 88 /min [facility] 11-07-2023 11:09-0400 Respiratory rate 18 /min [facility] 11-07-2023 11:09-0400 SaO2% (BldA) [Mass fraction] 98 % [facility] 11-07-2023 11:09-0400 Systolic blood pressure 123 mm[Hg] [facility] 08-15-2023 11:27-0400 Diastolic blood pressure 84 mm[Hg] Ahsan NOVAK Work Phone: [facility] 08-15-2023 11:27-0400 Heart rate 110 /min Ahsan Flynn PA Work Phone: [facility] 08-15-2023 11:27-0400 Respiratory rate 20 /min Ahsan Flynn PA Work Phone: [facility] 08-15-2023 11:27-0400 Systolic blood pressure 126 mm[Hg] Ahsan Flynn PA Work Phone: [facility] 02-14-2023 11:12-0500 Body height 175.3 cm Ahsan Flynn PA Work Phone: [facility] 02-14-2023 11:12-0500 Body mass index (BMI) [Ratio] 39.43 kg/m2 Ahsan Flynn PA Work Phone: [facility] 02-14-2023 11:12-0500 Body weight 121.11 kg Ahsan Flynn PA Work Phone: [facility] 02-14-2023 11:12-0500 Diastolic blood pressure 94 mm[Hg] Ahsan Flynn PA Work Phone: [facility] 02-14-2023 11:12-0500 Heart rate 89 /min Ahsan Flynn PA Work Phone: [facility] 02-14-2023 11:12-0500 Respiratory rate 18 /min Ahsan Flynn PA Work Phone: [facility] 02-14-2023 11:12-0500 SaO2% (BldA) [Mass fraction] 98 % Ahsan Flynn PA Work Phone: [facility] 02-14-2023 11:12-0500 Systolic blood pressure 143 mm[Hg] Ahsan Flynn PA Work Phone: [facility] 02-07-2023 14:37-0500 Body temperature 98.6 [degF] Riddhi Goss OFFICE SERVICES REPRESENTATIVE.SUPPLY CONTROLLER Work Phone: [facility] 02-07-2023 14:37-0500 Body weight 122.92 kg Riddhi Goss OFFICE SERVICES REPRESENTATIVE.SUPPLY CONTROLLER Work Phone: [facility] 02-07-2023 14:37-0500 Diastolic blood pressure 80 mm[Hg] Riddhi Goss OFFICE SERVICES REPRESENTATIVE.SUPPLY CONTROLLER Work Phone: [facility] 02-07-2023 14:37-0500 Heart rate 79 /min Riddhi Goss OFFICE SERVICES REPRESENTATIVE.SUPPLY CONTROLLER Work Phone: [facility] 02-07-2023 14:37-0500 SaO2% (BldA) [Mass fraction] 98 % Riddhi Goss OFFICE SERVICES REPRESENTATIVE.SUPPLY CONTROLLER Work Phone: [facility] 02-07-2023 14:37-0500 Systolic blood pressure 157 mm[Hg] Riddhi Goss OFFICE SERVICES REPRESENTATIVE.SUPPLY CONTROLLER Work Phone: [facility] 02-04-2023 09:16-0500 Blood Pressure Location Cecelia MURILLO [facility] 02-04-2023 09:16-0500 Diastolic blood pressure 88 mm[Hg] Cecelia MURILLO [facility] 02-04-2023 09:16-0500 Heart rate 79 /min Cecelia MURILLO [facility] 02-04-2023 09:16-0500 Respiratory rate 16 /min Cecelia MURILLO [facility] 02-04-2023 09:16-0500 Systolic blood pressure 139 mm[Hg] Cecelia MURILLO [facility] 12-20-2022 14:26-0400 Body height 175.3 cm Singh Morgan PA-C Work Phone: [facility] 12-20-2022 14:26-0400 Body weight 123.11 kg Singh Morgan PA-C Work Phone: [facility] 12-20-2022 14:26-0400 Diastolic blood pressure 84 mm[Hg] Singh Morgan PA-C Work Phone: [facility] 12-20-2022 14:26-0400 Heart rate 76 /min Singh Morgan PA-C Work Phone: [facility] 12-20-2022 14:26-0400 SaO2% (BldA) [Mass fraction] 97 % Singh Morgan PA-C Work Phone: [facility] 12-20-2022 14:26-0400 Systolic blood pressure 165 mm[Hg] Singh Morgan PA-C Work Phone: [facility] 12-06-2022 15:00-0400 Body height 175.26 cm Oumou Reji Other [employer] Other 12-06-2022 15:00-0400 Body mass index (BMI) [Ratio] 39.9 kg/m2 Oumou Reji Other [employer] Other 12-06-2022 15:00-0400 Body temperature 98.1 [degF] Oumou Reji Other [employer] Other 12-06-2022 15:00-0400 Body weight 122.56 kg Oumou Reji Other [employer] Other 12-06-2022 15:00-0400 Diastolic blood pressure 81 mm[Hg] Oumou Reji Other [employer] Other 12-06-2022 15:00-0400 Respiratory rate 20 /min Oumou Reji Other [employer] Other 12-06-2022 15:00-0400 SaO2% (BldA) [Mass fraction] 97 % Oumou Reji Other [employer] Other 12-06-2022 15:00-0400 Systolic blood pressure 127 mm[Hg] Oumou Reji Other [employer] Other 11-05-2022 14:17-0400 Body height 175.3 cm Thomas Mathew MD Work Phone: [facility] 11-05-2022 14:17-0400 Body weight 123.97 kg Thomas Mathew MD Work Phone: [facility] 11-05-2022 14:17-0400 Diastolic blood pressure 84 mm[Hg] Thomas Mathew MD Work Phone: [facility] 11-05-2022 14:17-0400 Heart rate 66 /min Thomas Mathew MD Work Phone: [facility] 11-05-2022 14:17-0400 SaO2% (BldA) [Mass fraction] 100 % Thomas Mathew MD Work Phone: [facility] 11-05-2022 14:17-0400 Systolic blood pressure 156 mm[Hg] Thomas Mathew MD Work Phone: [facility] 10-17-2022 15:41-0400 Blood Pressure Location Maite SQUIRES [facility] [place] 10-17-2022 15:41-0400 Diastolic blood pressure 84 mm[Hg] Maite SQUIRES [facility] [place] 10-17-2022 15:41-0400 Heart rate 70 /min Maite SQUIRES [facility] [place] 10-17-2022 15:41-0400 Respiratory rate 16 /min Maite SQUIRES [facility] [place] 10-17-2022 15:41-0400 Systolic blood pressure 118 mm[Hg] Maite RICKL [facility] [place] 06-21-2022 10:20-0400 Body height 175.26 cm Oumouyesenia Weinstein Other [employer] Other 06-21-2022 10:20-0400 Body mass index (BMI) [Ratio] 40.02 kg/m2 Oumou Reji Other [employer] Other 06-21-2022 10:20-0400 Body temperature 97.6 [degF] Oumou Reji Other [employer] Other 06-21-2022 10:20-0400 Body weight 122.93 kg Oumou Reji Other [employer] Other 06-21-2022 10:20-0400 Diastolic blood pressure 80 mm[Hg] Oumou Reji Other [employer] Other 06-21-2022 10:20-0400 Respiratory rate 20 /min Oumou Reji Other [employer] Other 06-21-2022 10:20-0400 SaO2% (BldA) [Mass fraction] 97 % Oumou Reji Other [employer] Other 06-21-2022 10:20-0400 Systolic blood pressure 114 mm[Hg] Oumou Reji Other [employer] Other 03-19-2022 09:48-0500 Blood Pressure Location Cecelia LIDIA [facility] 03-19-2022 09:48-0500 Diastolic blood pressure 88 mm[Hg] Cecelia MURILLO [facility] 03-19-2022 09:48-0500 Heart rate 78 /min Cecelia MURILLO [facility] 03-19-2022 09:48-0500 Respiratory rate 16 /min Cecelia MURILLO [facility] 03-19-2022 09:48-0500 Systolic blood pressure 139 mm[Hg] Cecelia MURILLO [facility] 01-11-2022 11:15-0500 Body temperature 98.1 [degF] PHYSICIAN NO [facility] 01-11-2022 11:15-0500 Diastolic blood pressure 88 mm[Hg] PHYSICIAN NO [facility] 01-11-2022 11:15-0500 Heart rate 79 /min PHYSICIAN NO [facility] 01-11-2022 11:15-0500 Respiratory rate 18 /min PHYSICIAN NO [facility] 01-11-2022 11:15-0500 SaO2% (BldA) [Mass fraction] 96 % PHYSICIAN NO [facility] 01-11-2022 11:15-0500 Systolic blood pressure 137 mm[Hg] PHYSICIAN NO [facility] 12-15-2021 12:20-0400 Body height 175.26 cm Estephanie Lowry Other [facility] [employer] Other 12-15-2021 12:20-0400 Body mass index (BMI) [Ratio] 41.49 kg/m2 Estephanie Lowry Other [employer] [facility] [employer] Other 12-15-2021 12:20-0400 Body temperature 98.6 [degF] Estephanie Lowry Other [employer] Other 12-15-2021 12:20-0400 Body weight 127.46 kg Estephanie Lowry Other [employer] Other 12-15-2021 12:20-0400 Diastolic blood pressure 96 mm[Hg] Estephanie Lowry Other [employer] Other 12-15-2021 12:20-0400 Respiratory rate 18 /min Estephanie Hammondmond Other [employer] Other 12-15-2021 12:20-0400 SaO2% (BldA) [Mass fraction] 97 % Estephanie Lowry Other [employer] Other 12-15-2021 12:20-0400 Systolic blood pressure 132 mm[Hg] Estephanie Lowry Other [employer] Other 10-25-2021 14:00-0400 Body height 175.26 cm Oumou Reji Other [employer] Other 10-25-2021 14:00-0400 Body mass index (BMI) [Ratio] 42.02 kg/m2 Oumou Reji Other [employer] Other 10-25-2021 14:00-0400 Body temperature 96.8 [degF] Oumou Reji Other [employer] Other 10-25-2021 14:00-0400 Body weight 129.09 kg Oumou Reji Other [employer] Other 10-25-2021 14:00-0400 Diastolic blood pressure 69 mm[Hg] Oumou Reji Other [employer] Other 10-25-2021 14:00-0400 Respiratory rate 20 /min Oumou Reji Other [employer] Other 10-25-2021 14:00-0400 SaO2% (BldA) [Mass fraction] 98 % Oumou Reji Other [employer] Other 10-25-2021 14:00-0400 Systolic blood pressure 109 mm[Hg] Oumou Reji Other [employer] Other 05-26-2021 10:45-0400 Body temperature 98.8 [degF] Octavio Mcclellan [place] Work Phone: [employer] 05-26-2021 10:45-0400 Respiratory rate 18 /min Octavio Mcclellan [employer] Work Phone: [employer] 05-26-2021 10:45-0400 SaO2% (BldA) [Mass fraction] 98 % Octavio Mcclellan [employer] Work Phone: [employer] 05-26-2021 07:30-0400 Heart rate 105 /min Octavio Mcclellan [employer] Work Phone: [employer] 05-25-2021 23:20-0400 Diastolic blood pressure 85 mm[Hg] Octavio Mcclellan [place] Work Phone: [employer] 05-25-2021 23:20-0400 Systolic blood pressure 130 mm[Hg] Octavio Mcclellan [employer] Work Phone: [employer] 05-24-2021 10:15-0400 Body height 175.3 cm Octavio Mcclellan [employer] Work Phone: [employer] 05-24-2021 10:15-0400 Body mass index (BMI) [Ratio] 50.65 kg/m2 Octavio Mcclellan [employer] Work Phone: [employer] 05-24-2021 10:15-0400 Body weight 155.58 kg Octavio Mcclellan [employer] Work Phone: [employer] 05-08-2021 11:04-0400 Body height 175.[address] [employer] 05-08-2021 11:04-0400 Body mass index (BMI) [Ratio] 51.98 kg/m2 St [facility] [employer] 05-08-2021 11:04-0400 Body temperature 97.3 [degF] [facility] 11:04-0400 Body weight 159.[address] [facility] 05-08-2021 11:04-0400 Diastolic blood pressure 83 mm[Hg] [address] [facility] 05-08-2021 11:04-0400 Heart rate 126 /min [address] [facility] 05-08-2021 11:04-0400 Respiratory rate 20 /min [address] [facility] 05-08-2021 11:04-0400 SaO2% (BldA) [Mass fraction] 95 % [address] [facility] 05-08-2021 11:04-0400 Systolic blood pressure 121 mm[Hg] [address] [facility] 01-08-2020 14:04-0500 BMI (Body Mass Index) 47.99 kg/m2 [facility] 01-08-2020 14:04-0500 Body Temperature 96.69 [degF] [facility] [facility] 01-08-2020 14:04-0500 Body weight 147.[address] [facility] [facility] 01-08-2020 14:04-[address] [facility] [facility] 04-11-2019 12:42-0500 BMI (Body Mass Index) 44.3 kg/m2 [employer] Work Phone: 04-11-2019 12:42-0500 Body Temperature 97.39 [degF] [employer] Work Phone: 04-11-2019 12:42-0500 Body weight 136.08 kg [employer] Work Phone: 04-11-2019 12:42-0500 BP Diastolic 98 mm[Hg] [employer] Work Phone: 04-11-2019 12:42-0500 BP Systolic 196 mm[Hg] [employer] Work Phone: 04-11-2019 12:42-0500 Height 175.3 cm [facility] [employer] Phone: 04-11-2019 12:42-0500 Pulse (Heart Rate) 72 /min [employer] [employer] Phone: 04-11-2019 12:42-0500 Pulse Oximetry 96 % [employer] Phone: 04-11-2019 12:42-0500 Respiratory Rate 16 /min [facility]anne [email or web address] Work Phone: Encounters Encounter Date Encounter Type Care Provider Facility Start: 08-13-2025 ambulatory Cecelia MURILLO [facility] ty: [facility] Start: 08-07-2024 End: 08-07-2024 ambulatory Cecelia MURILLO Facility:[facility] Start: 08-07-2024 End: 08-07-2024 Patient encounter procedure [facility] Start: 06-22-2024 End: 06-22-2024 ambulatory Cecelia MURILLO Facility:[facility] Start: 06-17-2024 End: 06-17-2024 ambulatory [facility] Start: 05-18-2024 ambulatory [facility] Start: 05-18-2024 End: 05-18-2024 ambulatory [facility] Start: 04-10-2024 End: 04-21-2024 Telephone encounter Cherelle Oleary RN [facility] Start: 03-03-2024 End: 03-04-2024 Telephone encounter Cherelle Oleary RN [facility] Start: 02-13-2024 End: 02-13-2024 ambulatory AHSAN FLYNN [facility] Start: 02-13-2024 End: 02-13-2024 Office outpatient visit 15 minutes Ahsan Flynn PA Work Phone: [facility] Comment on above: Spinal stenosis, lum bar region, with neurogenic claudication (Primary Dx) Start: 02-03-2024 End: 02-03-2024 ambulatory Cecelia MURILLO Facility:[facility] Start: 02-03-2024 End: 02-03-2024 Patient encounter procedure Cecelia MURILLO [facility] Start: 12-05-2023 End: 12-05-2023 ambulatory [facility] Start: 12-05-2023 End: 12-05-2023 Office outpatient visit 15 minutes Ahsan NOVAK Work Phone: [facility] Comment on above: Spinal stenosis, lum bar region, with neurogenic claudication (Primary Dx) Start: 11-07-2023 End: 11-07-2023 ambulatory [facility] Work Phone: Start: 11-07-2023 End: 11-07-2023 Patient encounter procedure [facility] Ne[facility] Work Phone: Start: 10-29-2023 Non-patient / Non-visit [facility]ician [facility] [place] Work Phone: Start: 10-07-2023 End: 06-25-2024 Telephone encounter Thomas Mathew MD Work Phone: Neurology Comment on above: Appointment Start: 10-04-2023 Telephone encounter Thomas crabtree MD Work Phone: Neurology Comment on above: Results Start: 08-15-2023 End: 08-15-2023 Office outpatient visit 15 minutes Ahsan NOVAK Work Phone: [facility] Comment on above: Spinal stenosis, lum bar region, with neurogenic claudication (Primary Dx) Start: 08-15-2023 End: 08-15-2023 ambulatory [facility] Start: 07-30-2023 Telephone encounter Thomas crabtree MD Work Phone: Neurology Comment on above: Appointment; Orders Start: 07-23-2023 Telephone encounter Thomas crabtree MD Work Phone: Neurology Start: 05-08-2023 End: 05-08-2023 ambulatory Thomas Mathew MD Work Phone: Neurosurgery Comment on above: Radiculopathy, lumba r region (Primary Dx) Start: 05-08-2023 End: 05-08-2023 Telemedicine consultation with patient Thomas Mathew MD Work Phone: [facility] Start: 05-08-2023 Telephone encounter Cherelle Oleary RN [facility] Start: 05-07-2023 Telephone encounter Cherelle Oleary RN [facility] Start: 04-16-2023 Telephone encounter Thomas crabtree MD Work Phone: Neurology Comment on above: Imaging Disc Start: 04-10-2023 Telephone encounter Thomas crabtree MD Work Phone: Neurology Comment on above: PT Certification Start: 04-09-2023 Telephone encounter Thomas crabtree MD Work Phone: Neurology Start: 02-14-2023 End: 02-14-2023 Office outpatient visit 15 minutes Ahsan NOVAK Work Phone: [facility] Comment on above: Spinal stenosis, lum bar region, with neurogenic claudication (Primary Dx) Start: 02-07-2023 End: 02-07-2023 Patient encounter procedure Riddhi Goss OFFICE SERVICES REPRESENTATIVE.SUPPLY CONTROLLER Work Phone: Neurosurgery Comment on above: 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) Start: 02-07-2023 Telephone encounter Thomas crabtree MD Work Phone: Neurosurgery Start: 02-04-2023 End: 02-04-2023 Patient encounter procedure Cecelia Jj LIDIA [facility] Start: 01-23-2023 Telephone encounter Thomas [...] Evaluation and management of inpatient THOMAS MATHEW Facility:[facility] Start: 12-06-2022 End: 12-06-2022 ambulatory Oumou Weinstein Other [employer] Other Start: 12-06-2022 Office outpatient vi sit 25 minutes Oumou Weinstein [facility] Neph[facility] Reg Start: 11-21-2022 End: 11-21-2022 ambulatory MAITE GALLOWAY Facility:[facility] Start: 11-21-2022 End: 11-21-2022 ambulatory BLAYNE ISABEL Facility:[facility] Start: 11-21-2022 End: 11-21-2022 ambulatory BLAYNE ISABEL Facility:[facility] Start: 11-21-2022 Encounter for other preprocedural examination BLAYNE ISABEL [facility] Start: 11-05-2022 End: 11-05-2022 Patient encounter procedure Thomas Mathew MD Work Phone: Neurosurgery Comment on above: 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 Facility:[facility] Start: 06-21-2022 End: 06-21-2022 ambulatory Oumou Reji Other [employer] Other Start: 06-21-2022 Office outpatient vi sit 25 minutes Oumou Reji [facility] Start: 06-11-2022 End: 06-12-2022 ambulatory OUMOU REJI Facility:[facility] Start: 04-03-2022 End: 04-03-2022 ambulatory Oumou Reji Other [employer] Other Start: 04-03-2022 Telephone encounter Oumou Reji [facility] Start: 03-20-2022 Encounter for preprocedural laboratory examination DR DOCTOR MILES [facility] Start: 03-19-2022 End: 03-19-2022 Patient encounter procedure Cecelia MURILLO [facility] Start: 03-15-2022 End: 03-16-[address] DOCTOR MILES Facility:[facility] Start: 03-15-2022 End: 03-16-2022 Encounter for preprocedural laboratory examination DR DOCTOR MILES Facility:[facility] Start: 03-12-2022 End: 03-13-[address] CECELIA MURILLO . Facility:[facility] Start: 03-08-2022 End: 03-09-[address] DOCTOR MILES Facility:[facility] Start: 01-27-2022 Encounter for genera l adult medical examination without abnormal findings DR BLAYNE ISABEL . [facility] Start: 01-24-2022 End: 01-25-[address] BLAYNE ISABEL . Facility:[facility] Start: 01-24-2022 End: 01-25-2022 Encounter for general adult medical examination without abnormal findings DR BLAYNE ISABEL . Facility:[facility] Start: 01-22-2022 End: 01-22-2022 ambulatory Oumou Reji Other [employer] Other Start: 01-22-2022 Telephone encounter Oumou Reji [facility] Start: 01-11-2022 End: 01-11-2022 ambulatory PHYSICIAN NO FAMILY Facility:[facility] Start: 01-11-2022 End: 01-11-2022 ambulatory PHYSICIAN NO [facility] Work Phone: Start: 01-11-2022 End: 01-11-2022 Discharged Recurring PHYSICIAN NO [facility]-Infusion Therapy - O/P Start: 01-10-2022 End: 01-10-2022 ambulatory Oumou Reji Other [employer] Other Start: 01-10-2022 Telephone encounter Oumou Reji [facility] Start: 01-02-2022 End: 01-02-2022 ambulatory Oumou Reji Other [employer] Other Start: 01-02-2022 Telephone encounter Oumou Reji [facility] Start: 01-01-2022 End: 01-01-2022 ambulatory Oumou Reji Other [employer] Other Start: 01-01-2022 Telephone encounter Oumou Reji [facility] Start: 12-21-2021 End: 12-22-[address] BLAYNE ISABEL . Facility:[facility] Start: 12-15-2021 Office outpatient vi sit 15 minutes Estephanie Lowry [facility] Start: 12-15-2021 Telephone encounter Oumou Reji [facility] Start: 12-15-2021 End: 12-15-[address] [facility] [employer] Other Start: 12-15-2021 End: 12-15-2021 Departed Referred MARBLE INSTALLER SUPERVISOR-C Estephanie Lowry Work Phone: [facility] [place] Start: 11-24-2021 End: 11-25-2021 ambulatory OUMOU REJI Facility:[facility] Start: 11-15-2021 End: 11-15-2021 ambulatory OUMOU REJI Facility:[facility] Start: 11-14-2021 End: 11-15-2021 ambulatory OUMOU REJI Facility:[facility] Start: 11-01-2021 End: 11-02-[address] BLAYNE ISABEL . Facility:[facility] Start: 10-31-2021 End: 11-01-[address] BLAYNE ISABEL . Facility:[facility] Start: 10-25-2021 End: 10-25-2021 ambulatory Oumou Reji Other [employer] Other Start: 10-25-2021 Office outpatient ne w 45 minutes Oumou Reji [facility] Start: 10-18-2021 End: 10-19-[address] BLAYNE ISABEL . Facility:[facility] Start: 10-17-2021 Encounter for other specified special [facility] Start: 10-17-2021 Encounter for preprocedural laboratory [facility] Start: 10-16-2021 End: 10-17-[address] BLAYNE ISABEL . Facility:[facility] Start: 10-16-2021 End: 10-17-2021 Encounter for other specified special examinations DR DOCTOR MILES Facility:[facility] Start: 10-13-2021 End: 10-21-2021 ambulatory PHYSICIAN BRADFORD Facility[facility] Start: 10-10-2021 End: 10-11-[address] [...] Evaluation and management of inpatient LEISA PERRY [facility] Start: 05-24-2021 End: 05-26-2021 ambulatory OCTAVIO Jj [facility] Start: 05-24-2021 End: 05-26-2021 Subsequent hospital visit by physician Octavio Mcclellan DO Work Phone: [facility] Ortho/Med Surg Comment on above: S/P laparoscopic sle may gastrectomy (Primary Dx) Start: 05-08-2021 End: 05-08-2021 Subsequent hospital visit by physician Twyla Pat 2 [facility] Pre-Admit Testing Comment on above: Canceled (Other) Start: 05-08-2021 End: 05-11-2021 ambulatory OCTAVIO MCCLELLAN [facility] Start: 05-08-2021 End: 05-13-2021 ambulatory OCTAVIO Jj [facility] Start: 05-08-2021 End: 05-10-2021 Patient encounter status Stv Xr [facility] Radiology Start: 05-08-2021 End: 05-10-2021 Subsequent hospital visit by physician Glory Mccracken Xr [facility] Radiology Comment on above: Pre-op chest exam Start: 05-08-2021 End: 05-12-2021 Subsequent hospital visit by physician Twyla Mccracken Rm 2 [facility] Pre-Admit Testing Start: 05-05-2020 End: 05-05-2020 Patient encounter procedure Blayne Bañuelosy -Pre-Surgical Testing Start: 02-04-2020 End: 02-04-2020 Subsequent hospital visit by physician Suzanne Pruett Work Phone: [facility] Echocardiography Comment on above: Arrived Start: 01-08-2020 End: 01-08-2020 Subsequent hospital visit by physician Alexandro Muhammad Work Phone: [facility] Radiology Start: 01-08-2020 End: 01-08-2020 Office outpatient new 30 minutes Alexandro Muhammad Work Phone: [facility] Orthopedics Comment on above: Fluid retention in l egs (Primary Dx) Start: 06-10-2019 End: 06-11-2019 Patient encounter procedure [facility] Facility[facility] Start: 04-16-2019 End: 04-19-2019 Patient encounter procedure ARSENIO BHATTI [facility] Start: 04-16-2019 End: 04-18-2019 Subsequent hospital visit by physician Nelson Xr Room 4 [facility] hospital Comment on above: Injury Start: 04-11-2019 End: 04-11-2019 Emergency department patient visit [facility] Start: 04-11-2019 End: 04-11-2019 Emergency department patient visit [facility] Work Phone: [facility] ED Comment on above: Acute bilateral low back pain with right-sided sciatica (Primary Dx); Traumatic buttock pain Procedures Date Procedure Procedure Detail Performing Clinician Start: 11-21-2022 Antibody screen BLAYNE ISABEL Comment on above: Order Comment: Speci men Type: BLOOD SPECIMENOrdering Facility: [facility] Address: [address] [place], [place] [id number] Performed By: #### T [id number] ####CC MAIN BLOOD BANKCLIA [id number] [facility] [id number] [place], [place] [id number] [place] Start: 02-25-2022 Arthroplasty of knee Pa hiram MURILLO Start: 02-25-2022 Lumbar spinal fusion Pa zelalemvarghese MURILLO Start: 01-24-[address] SHERRI MURILLO . Comment on above: Performed By: #### P TT #### [facility] Laboratory [address] [place] [address] Dr. Hugh Landis Start: 07-13-2021 Cystoscopic removal [...] Start: 05-08-2021 Assay of nicotine Ever Mcclellan [place] Work Phone: Start: 05-08-2021 Basic metabolic pane [...] Radiologic examinati on pelvis 1/2 views Cecilia Reeys Work Phone: Start: 12-18-2017 Colonoscopy Maite BUSH [...] Screening Discussion [facility] Start: 02-12-2025 Adult BMI Screening Adult BMI Screening [facility] Start: 02-12-2025 Tobacco Screening Tobacco Screening [facility] Start: 12-04-2024 Adult BMI Screening Adult BMI Screening [facility] Start: 12-04-2024 Tobacco Screening Tobacco Screening [facility] Start: 10-26-2024 Influenza vaccination Influenza Vaccine (Season Ended) [facility] Start: 08-14-2024 Tobacco Screening Tobacco Screening [facility] Start: 02-15-2024 Adult BMI Screening Adult BMI Screening [facility] Start: 02-15-2024 Tobacco Screening Tobacco Screening [facility] Start: 02-13-2024 End: 02-13-2024 Patient encounter procedure 02/13/2024 10:45 AM EST Office Visit [facility] [address] [place] [address] Ahsan Flynn, PA [address] [place] [address] [facility] Start: 12-12-2023 Creatinine measurement Serum Creatinine [facility] Start: 12-12-2023 Serum Creatinine Serum Creatinine [facility] Start: 10-27-2023 Covid-19 Vaccine () Covid-19 Vaccine ( season) [facility] Start: 10-27-2023 Influenza vaccination [facility] Start: 10-07-2023 End: 10-07-2023 Follow-up encounter Neurosurgery Comment on above: FOLLOW UP Start: 2023 RSV Vaccine (1 - 1-dose 60+ series) RSV Vaccine (1 - 1-dose 60+ series) [facility] Start: 2023 RSV Vaccine (1 - Risk 60-74 years 1-dose series) RSV Vaccine (1 - Risk 60-74 years 1-dose series) [facility] Start: 08-15-2023 End: 08-15-2023 Patient encounter procedure 08/15/2023 11:15 AM EDT Office Visit [facility] [address] [place] [id number] Ahsan Flynn PA [address] [place] [address] [facility] Pain [facility] Start: 05-22-2023 Hemoglobin A1c measurement HbA1C [facility] [...] disease with spondylolisthesis Expected: 01/20/2023, Expires: 01/19/2024 [facility] Work Phone: Comment on above: Expected: 01/20/2023, Expires: Start: 10-26-2022 Covid-19 Vaccine ( season) Covid-19 Vaccine ( season) [facility] Start: 10-26-2022 Influenza vaccination [facility] Start: 05-25-2022 Creatinine measurement Creatinine monitoring [facility] Start: 05-25-2022 Potassium monitoring Potassium monitoring [facility] Start: 05-08-2022 Creatinine measurement Creatinine monitoring [facility] Start: 05-08-2022 Potassium monitoring Potassium monitoring [facility] Start: 02-25-2022 DEPRESSION ASSESSMENT DEPRESSION ASSESSMENT [facility] Start: 01-03-2022 Hemoglobin A1c measurement A1C test (Diabetic or Prediabetic) [facility] Start: 01-03-2022 Lipid panel Lipid screen [facility] Start: 10-26-2021 Influenza vaccination Flu vaccine (Season Ended) [facility] Start: 06-06-2021 End: 06-06-2021 Patient encounter procedure 06/06/2021 Office Visit Oncology Spencer Guy MD [address] [place] [address] [facility] Start: 06-02-2021 End: 06-02-2021 Patient encounter procedure 06/02/2021 Office Visit Bariatrics Octavio Mcclellan DO [address] [place] [phone] [facility] Invasive Bariatric Surg Start: 05-24-2021 End: 05-24-2021 Admission to same day surgery center [facility] OR Comment on above: XI ROBOTIC LAPOROSCOPIC GASTRECTOMY SLEE VE, LIVER BIOPSY, EGD- GI SCHEDULED XI ROBOTIC LAPOROSCO PIC GASTRECTOMY SLEEVE, LIVER BIOPSY, EGD- GI SCHEDULED, POSSIBLE OPEN Start: 05-24-2021 End: 05-24-2021 Laps gstrc rstrictiv px longitudinal gastrectomy [facility] Start: 05-24-2021 Subsequent hospital visit by physician 05/24/2021 Hospital Encounter IP Unit Octavio Mcclellan DO [address] [place] [phone] [facility] Start: 05-19-2021 End: 05-19-2021 Patient encounter procedure 05/19/2021 Appointment Pre-Admission Testing [facility] PRE ADMIT Start: 05-18-2021 End: 05-18-2021 Patient encounter procedure 05/18/2021 Office Visit Bariatrics JerodOctavio, DO [address] [place] [phone] [facility] Invasive Bariatric Surg Start: 10-26-2020 Influenza vaccination Flu vaccine (#1) [facility] Start: 04-04-2020 End: 04-04-2020 Office Visit 04/04/2020 Office Visit Cardiovascular Medicine Suzanne Pruett MD [address] [place] [address] [phone] [facility] Start: 02-02-2020 End: 02-02-2020 Office Visit 02/02/2020 Office Visit Cardiovascular Medicine Suzanne Pruett MD [address] [place] [address] [phone] [facility] Start: 10-27-2019 Influenza vaccination INFLUENZA VACCINE (#1) [facility] Start: 10-26-2018 Influenza vaccination Flu vaccine (#1) [place] Phone: Start: 09-10-2018 PROSTATE CANCER SCREENING DISCUSSION PROSTATE CANCER SCREENING DISCUSSION [facility] Start: 09-10-2013 Administration of varicella zoster vaccine Zoster (Shingles) Vaccine (1 of 2) [facility] Start: 09-10-2013 Colon cancer screen colonoscopy Colon cancer screen colonoscopy [place] Phone: Start: 09-10-2013 Colonoscopy COLORECTAL CANCER SCREENING DISCUSSION [facility] Start: 09-10-2013 Prostate specific antigen measurement PROSTATE CANCER SCREENING DISCUSSION [facility] Start: 09-10-2013 Shingles Vaccine (1 of 2) Shingles Vaccine (1 of 2) [facility] Start: 09-10-2013 SHINGRIX VACCINE (1 of 2) SHINGRIX VACCINE (1 of 2) [facility] Start: 09-10-2013 Zoster vaccine hzv live for subcutaneous use ZOSTER (SHINGLES) VACCINE (1 of 2) [facility] Start: 09-10-2008 COLOGUARD (FIT-DNA) COLOGUARD (FIT-DNA) [facility] [...] 09-10-2008 Screening for malignant neoplasm of colon [facility] Start: 09-10-2008 SIGMOIDOSCOPY SIGMOIDOSCOPY [facility] Start: 2003 Diabetes screen Diabetes screen [facility] [employer] Phone: Start: 2003 Fasting lipid profile LIPID SCREENING [facility] [employer] [facility] [facility] Start: 2003 Lipid screen Lipid screen [facility] Phone: Start: 09-10-1998 Lipid 1996 panel - Serum or Plasma Lipid Screening [facility] Start: 09-10-1998 LIPID SCREEN LIPID SCREEN [facility] Start: 09-10-1982 DTaP,Tdap and Td Vaccines (1 - Tdap) DTaP,Tdap and Td Vaccines (1 - Tdap) [facility] Start: 09-10-1982 DTaP/Tdap/Td vaccine (1 - Tdap) DTaP/Tdap/Td vaccine (1 - Tdap) [facility] Start: 09-10-1982 Hepatitis B vaccine (1 of 3 - Risk 3-dose series) Hepatitis B vaccine (1 of 3 - Risk 3-dose series) [facility] Start: 09-10-1982 Pneumococcal Vaccine: 50+ (1 of 2 - PCV) Pneumococcal Vaccine: 50+ (1 of 2 - PCV) [facility] Start: 09-10-1982 Third diphtheria, tetanus and acellular pertussis (DTaP) vaccination TDAP (ADULT) [facility] Start: 09-10-1982 Urine microalbumin profile [facility] Start: 09-10-1981 Adult BMI Follow Up Plan Adult BMI Follow Up Plan [facility] Start: 09-10-1981 Annual PCP Team Chronic Disease Visit Annual PCP Team Chronic Disease Visit [facility] Start: 09-10-1981 BP Controlled (<130/80) BP Controlled (<130/80) [facility] Start: 09-10-1981 Depression Screening Depression Screening [facility] Start: 09-10-1981 Diabetic retinal exam Diabetic retinal exam [facility] Start: 09-10-1981 Hepatitis B surface antibody level LDL Cholesterol [facility] Start: 09-10-1981 HEPATITIS C SCREENING HEPATITIS C SCREENING [facility] Start: 09-10-1981 Hepatitis C screening Hepatitis C Screening [facility] Start: 09-10-1981 HIV SCREENING HIV SCREENING [facility] Start: 09-10-1981 HIV screening HIV Screening [facility] Start: 09-10-1981 Tetanus vaccination TETANUS [facility] Start: 09-10-1981 Urine screening for protein Diabetic microalbuminuria test [facility] Start: 09-10-1978 HIV screen HIV screen [facility] Phone: Start: 09-10-1978 HIV screening HIV screen [facility] Start: 09-10-1976 HIV screening HIV SCREENING DISCUSSION [employer] Start: 1975 Depression Screen Depression Screen [facility] Start: 1975 Depression Screening Depression Screening [facility] Start: 09-10-1974 DTaP/Tdap/Td vaccine (1 - Tdap) DTaP/Tdap/Td vaccine (1 - Tdap) [facility] [employer] Phone: Start: 09-10-1973 3 comp foot exam completed Diabetic Foot Exam [facility] Start: 09-10-1973 Diabetic foot examination Diabetic foot exam [facility] Start: 09-10-1973 Glaucoma screening Dilated Retinal Exam [facility] Start: 09-10-1973 Hepatitis B screening Urine Albumin:Creatinine Ratio [facility] Start: 09-10-1973 Hepatitis C antibody, confirmatory test Dilated Retinal Exam [facility] Start: 09-10-1969 Pneumococcal 0-64 years Vaccine (1 of 2 - PPSV23) Pneumococcal 0-64 years Vaccine (1 of 2 - PPSV23) [facility] Start: 09-10-1969 Pneumococcal vaccination [facility] Start: 09-10-1968 COVID-19 Vaccine (1) COVID-19 Vaccine (1) [facility] Start: 03-13-1964 COVID-19 VACCINE (#1) COVID-19 VACCINE (#1) [facility] Start: 1965 Hepatitis C antibody, confirmatory test HEPATITIS C VIRUS SCREENING [facility] Start: 1965 Hepatitis C screen Hepatitis C screen [place] Phone: Start: 1965 Hepatitis C screening Hepatitis C screen [employer] [facility] Start: 1965 Potassium [Moles/Vol] POTASSIUM [employer] Bacteria identified in Urine by Culture [facility] Chlamydia trachomati s DNA [Presence] in Unspecified specimen by MUKUL with probe detection [facility] Work Phone: Continuous pulse oximetry Pulse oximetry, continuous Respiratory Care Routine Every 4hr until discontinued starting 05/24/2021 [place] Phone: Comment on above: Every 4hr until discontinued starting CT LUMBAR SPINE WO CONTRAST CT LUMBAR SPINE WO CONTRAST Imaging STAT 04/11/2019 1:43 PM EST [place] Phone: Neisseria gonorrhoea e DNA [Presence] in Unspecified specimen by MUKUL with probe detection [facility] Work Phone: Oxygen therapy [[facility] Data Set] Initiate Oxygen Therapy Protocol Respiratory Care Routine As Needed until discontinued starting 05/24/2021 [place] Phone: Comment on above: As Needed until discontinued starting Radiography for bone length studies XR BONE LENGTH STUDY Imaging Routine Hx of total knee arthroplasty, right 01/08/2020 1:37 PM EST [facility] Renal function 2000 panel - Serum or Plasma [facility] Spirometry panel Incentive silverio metry Respiratory Care Routine Every 2hr while awake until discontinued starting 05/24/2021 [place] Phone: Comment on above: Every 2hr while awake until discontinued starting 05/24/2021 Surgical Pathology Surgical Path ology Lab Routine Release Upon Ordering for 1 Occurrences starting 05/24/2021 [place] Phone: Comment on above: Release Upon Ordering for 1 Occurrences starting 05/24/2021 Trichomonas vaginali s DNA [Presence] in Unspecified specimen by MUKUL with probe detection [facility] Work Phone: X-ray of right knee XR KNEE RIGH T 3 VIEWS Imaging Routine Hx of total knee arthroplasty, right 01/08/2020 1:37 PM [facility] End: 06-06-2024 XR Lumbar spine AP and Lateral XR LUMBAR LIMITED 2V AP/LAT Radiology Routine Radiculopathy, lumbar region 1 Occurrences starting 05/08/2023 until 06/06/2024 [facility] Work Phone: Comment on above: 1 Occurrences starting 05/08/2023 until 06/06/2024 [facility] Immunizations Immunization Date Immunization Notes Care Provider Jazmin mariscal 05-08-2023 influenza virus vacc ine, unspecified formulation Thomas Mathew MD Work Phone: [facility] Payers Date Payer Category Payer Self-pay [id number] 2019 Private Health Insurance xxx [id number] 2019 Worker's Compensation 2019 Government (not [facility] care or Medicaid) [facility] [place] [address] [id number]. [id number] 2019 Unknown HEALTH MANAGEMEN T SOLUTIONS HEALTH MGMT SOLUTIONS [facility] FUNDED [id number] 2019-Present [phone] [place] [address] xxxxxxxx [id number]. 2.7.3.593683.315 2019 Unknown [id number] 2019 Unknown [id number] 2019 Unknown HEALTH MANAGEMEN T SOLUTIONS HEALTH MGMT SOLUTIONS [facility] FUNDED xxxxx 2019-Present [phone] [place] [address] xxxxx [id number]. 2.7.3.064652.315 2019 Unknown [id number]. 1.13.159. 2.7.3.228632.315 2019 Worker's Comp Other Managed Care [facility] 1.2.840.967907.1.13.424. 2.7.9.964800.306.315 2019 Unknown [id number] 2014 Private Health Insurance [id number] 2014 Private Health Insurance BRENTON Carlos KATI xxxxxxxxxx 2014-Present [phone] [address] [place] [address] xxxxxxxxxx 1.2.840.937427.1.13.239. 2.7.3.717328.315 2013 Private Health Insurance 1965 Unknown [id number] 2.16.840.1.501271.3.579. 2.176 1963 Unknown [id number] 2.16.840.1.387364.3.579. 2.176 1963 Unknown [id number] 2.16.840.1.315357.3.579. 2.176 1963 Unknown [id number] 2.16.840.1.893692.3.579. 2.196 1963 Unknown [id number] 2.16.840.1.479657.3.579. 2.175 1963 Unknown [id number] 2.16.840.1.460654.3.579. 2.647 1963 Unknown [id number] 2.16.840.1.557760.3.579. 2.593 1963 Unknown [id number] 2.16.840.1.178559.3.579. 2.593 1963 Unknown [id number] 2.16.840.1.763795.3.579. 2.593 1963 Unknown [id number] 2.16.840.1.680785.3.579. 2.593 1963 Unknown [id number] 2.16.840.1.144215.3.579. 2.593 1963 Unknown [id number] 2.16.840.1.342502.3.579. 2.593 1963 Unknown [id number] 2.16.840.1.289541.3.579. 2.593 1963 Unknown [id number] 2.16.840.1.024807.3.579. 2.593 1963 Unknown [id number] 2.16.840.1.278502.3.579. 2.593 1963 Unknown [id number] 2.16.840.1.850742.3.579. 2.593 1963 Unknown [id number] 2.16.840.1.334872.3.579. 2.593 1963 Unknown [id number] 2.16.840.1.505594.3.579. 2.59 1963 Unknown [id number] 2.16.840.1.609369.3.579. 2.59 1963 Unknown [id number] 2.16840.1.471682.3.579. 2.59 1963 Unknown [id number] 2.16840.1.611126.3.579. 2.59 1963 Unknown [id number] 2.840.1.599989.3.579. 259 1963 Unknown [id number] 2.840.1.873410.3.579. 259 1963 Unknown [id number] 2.840.1.489334.3.579. 259 1963 Unknown [id number] 2.840.1.898788.3.579. 2.59 1963 Unknown [id number] 2.840.1.216215.3.579. 259 1963 Unknown [id number] 2.840.1.357981.3.579. 2.59 1963 Unknown [id number] 2.840.1.014263.3.579. 2.59 1963 Unknown [id number] 2.840.1.361783.3.579. 2.59 1963 Unknown [id number] 2.840.1.733354.3.579. 2.1286 1963 Unknown [id number] 2.16840.1.135532.3.579. 2.128 1963 Unknown [id number] 2.840.1.813846.3.579. 2.1286 1963 Unknown [id number] 2.16.840.1.756542.3.579. 2.727 1963 Unknown [id number] 2.16.840.1.622718.3.579. 2.727 1963 Unknown [id number] 2.16.840.1.807827.3.579. 2.727 1963 Unknown [id number] 2.16.840.1.779913.3.579. 2.727 1959 Unknown [id number] 1.2.840.237154.1.13.239. 2.7.3.884580.315 1959 Unknown [id number] Self-pay Self Pay [facility] [id number] Unknown [id number] 2.16.840.1.488491.3.579. 2.531 Unknown [id number] 2.16.840.1.084233.3.579. 2.531 Unknown [id number] 2.16.840.1.195447.19 Social History Date Type Detail Facility Start: 04-11-2019 End: 08-07-2024 Tobacco smoking status INIS Never smoker [employer] [facility] Start: 04-11-2019 End: 05-25-2021 Alcohol intake Lifetime non-drinker (finding) [place] Phone: Start: 04-11-2019 End: 01-08-2020 History SDOH Alcohol Frequency 1 [place] Phone: Start: 1965 Sex Assigned At Not on file [employer] Phone: Start: 11-26-2013 End: 01-08-2020 Tobacco use and exposure Never used [employer] Start: 1965 Sex Assigned At Male [facility] Start: 04-08-2021 End: 05-24-2021 Exposure to SARS-CoV-2 (event) Not sure [place] Phone: Start: 11-05-2022 End: 03-25-2023 Sex Assigned At [facility] Start: 01-26-2014 End: 03-25-2023 Alcohol intake Current non-drinker of alcohol (finding) [facility] Tobacco smoking status Never [facility] Start: 11-05-2022 End: 03-25-2023 [facility] Start: 12-05-2023 End: 02-13-2024 Alcoholic beverage intake [facility] Start: 06-08-2009 End: 09-30-2014 Sex Male (finding) [facility] Sexual Orientation [facility] Medical Equipment Procedure Code Equipment Code Equipment Origin al Text Equipment Identifier Dates CYSTOSCOPY W/ HO MIUM LASER Octavio ARAIZA MD 03/28/20 Unknown Abdomen [id number] Start: 03-28-2020 Screw Darby 3 Alicia nium Set [facility] - [id number] Start: 12-07-2022 Screw Darby 3 Serr eladio 6.5mm 50mm Bone Polyaxial Nonsterile Spine - [id number] Start: 12-07-2022 Vitoss Ba2x Bioactive Bone Graft Substitute 5.0cub Cm [id number] Start: 12-07-2022 Cage Tritanium 6 d [id number] Spinal Sterile Latex Free Lumbar Posterior - [id number] Start: 12-07-2022 Cage Tritanium 6 d [id number] Spinal Sterile Latex Free Lumbar Posterior - [id number] Start: 12-07-2022 Screw Darby 3 Serr eladio 6.5mm 45mm Bone Polyaxial Nonsterile Spine - [id number] Start: 12-07-2022 Goals Date Patient Goal Desired Activity /State Functional Status Date Assessment Result Facility 02-04-2023 Functional Status N/A [facility] 12-11-2022 Are you deaf, or do you have serious difficulty hearing No 12/11/2022 12:52 PM EDT Livia Calix RN No [facility] 12-11-2022 Are you blind, or do you have serious difficulty seeing, even when wearing glasses No 12/11/2022 12:52 PM EDT Livia Calix RN No [facility] 12-11-2022 Do you have serious difficulty walking or climbing stairs No 12/11/2022 12:52 PM EDT Livia Calix RN No [facility] 12-11-2022 Do you have difficul ty dressing or bathing No 12/11/2022 12:52 PM EDT Livia Calix RN No [facility] 12-11-2022 Because of a physica l, mental, or emotional condition, do you have difficulty doing errands alone such as visiting a physician's office or shopping No 12/11/2022 12:52 PM EDT Livia Calix RN [facility] 10-17-2022 Functional Status N/A General An[facility] 03-19-2022 Functional Status N/A [facility] Mental Status Date Assessment Result Facility 12-11-2022 Because of a physica l, mental, or emotional condition, do you have serious difficulty concentrating, remembering, or making decisions No 12/11/2022 12:52 PM EDT Livia Calix RN [facility] Clinical Notes 05-03-2021 to 08-07-2024 Telephone Encounter [...] include: ?8 oz (237 mL) of milk, iwrrxxq-iioqfdqvfmej-fesjc milk, and calcium-fortifiedfruit juice. Calcium-fortified means that [...] ?Spinach (cooked), rhubarb, beets, sweet potatoes, and Bermudian chard. ?Peanuts. ?Potato chips, sudanese fries, and baked potatoes with skin on. ?Nuts and nut products. ?Chocolate. If you regularly take a diuretic medicine, make sure to eat at least 1 or 2 servings of fruits or vegetables that are high in potassium each day. These include: ?Avocado. ?Banana. ?[place], prune, carrot, or tomato juice. ?Baked potato. [...] magnesium, fish oil, or vitamin B6. Take azhj-zcs-wugvdfz and prescription medicines only as told by [...] Casseroles. Pizza. Lasagna. Frozen meals. Potato chips. Kenyan fries. The items listed above may not [...] provider. Document Revised: 05/24/2022 Document Reviewed: 05/24/2022 [employer] Patient Education 2023 [employer] Inc. Follow Up Care 07/03/2024 14:31:41 With:LIDIA JACOBS, Cecelia Jj, URL Address: [address] [place], [place] [address]- When: Unknown [facility] 08-07-2024 Note Patient Education Nephrology Dietary Guidelines [...] ? 8 oz (237 mL) of milk, bndfxks-mdufrrpvdxyu-cresx milk, and calcium-fortifiedfruit juice. Calcium-fortified means that [...] Spinach (cooked), rhubarb, beets, sweet potatoes, and Bermudian chard. ? Peanuts. ? Potato chips, sudanese fries, and baked potatoes with skin on. ? Nuts and nut products. ? Chocolate. ??? If you regularly take a diuretic medicine, make sure to eat at least 1 or 2 servings of fruits or vegetables that are high in potassium each day. These include: ? Avocado. ? Banana. ? [place]ona, prune, carrot, or tomato juice. ? Baked [...] fish oil, or vitamin B6. ??? Take ibtl-avv-xxrfrir and prescription medicines only as told by your health (more content not included)... [facility] 06-17-2024 Note Orthopedic Surgery Subjective Chief complaint: [...] CT of the right knee completed at [facility] which we do not have access to [...] well perfused extremiti (more content not included)... [facility] 05-18-2024 Note Orthopedic Surgery Subjective Chief complaint: [...] CT of the right knee completed at [facility] which we do not have access to [...] the right k (more content not included)... [facility] 04-10-2024 Miscellaneous Notes Patient brought in [employer] forms on 04/07/2024. Patient was informed at that time that this office does not do anything with disability form however, we would be happy to provide office notes if he would like. This was again discussed with Diallo who confirmed the above. Patient asks if Dr. Lakcey would be willing to complete the disability forms. This matter was discussed with Dr. Lackey today and he too stated that this office does not complete disability forms. Call was placed to patient. He was informed of the above information. If patient requests, office visit notes can be submitted via [facility]. documented in this encounter [facility] 04-10-2024 Telephone encounter Note Patient brought in [...] office visit notes can be submitted via [facility] Medical Records. [facility] 03-03-2024 Miscellaneous Notes Patient called today to follow up on his request for a written statement stating that provider feels that patient is totally disabled. Patient is informed that this office does not write such letters, however, office notes can be faxed to his staff attorney's office if that would be beneficial. documented in this encounter [facility] 03-03-2024 Telephone encounter Note Patient called today to follow up on his request for a written statement stating that provider feels that patient is totally disabled. Patient is informed that this office does not write such letters, however, office notes can be faxed to his staff attorney's office if that would be beneficial. [facility] 02-13-2024 History of Present illness Narrative [facility] [address] [place] [address] Patient: Sukhdeep Simental Sex: male : 1965 Age: 58 y.o. PCP: BLAYNE ISABEL MD 02/13/2024 Sukhdeep Simental is here for a(n) follow up for his [facility] work injury. 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 Chief Complaint Patient presents with Back Pain [facility] HPI: 12/07/2022 L2/3 fusion and revised L3/4, S1 at [facility] per patient. Bilateral SI joint injection on 04/17/2021 with 10% relief, pain is worse. 07/07/21 Bilateral L3/4 Medial branch block with no relief. right L 3, 4 nerve root injection on 09/01/2021 with no relef. Back Pain This is a chronic problem. The current episode started more than 1 year ago (surgery 10/16/18 discectomy and 07/10/2019 fusion in [place] The problem occurs constantly. The problem is [...] disorder Claustrophobia Diabetes mellitus type 2, controlled ([facility] Fractures Hyperlipidemia Hypertension Joint pain Low back pain Major depression Obesity Osteoarthritis Pulmonary embolism ([facility]) Seasonal allergies Sleep apnea does not use machine Sleep apnea Visual impairment glasses Past Surgical History: Procedure Laterality Date ANKLE SURGERY spurs removed INJECTION BLOCK EPIDURAL CAUDAL STEROID N/A 10/27/2021 Performed by Darren Lackey MD at [facility] INJECTION BLOCK NERVE MEDIAL BRANCH: bilat L 3/4 Bilateral 07/07/2021 Performed by Darren Lackey MD at [facility] INJECTION BLOCK SACROILIAC JOINT Bilateral 04/17/2021 Performed by Darren Lackey MD at [facility] SPINE TRANSFORAMINAL: right L 3,4 Nroot Right 09/01/2021 Performed by Darren Lackey MD at [facility] JOINT REPLACEMENT knees- right x2, left x1 KNEE SURGERY rt knee inf removed tka added rods LITHOTRIPSY LUMBAR DISCECTOMY L4-5 Left 10/16/2018 Performed by Suzanne Silverio DO at [facility] STOMACH SURGERY 04/2021 sleeve Allergies Allergen [...] Strain: Low Risk (03/28/2022) Received from [facility], [facility] Overall Financial Resource Strain (CARDIA) Difficulty of Paying Living Expenses: Not hard at all Food Insecurity: No Food Insecurity (12/05/2023) Hunger Screening Food Insecurity - Worry: Never True Food Insecurity - Inability: Never True Transportation Needs: Unknown (03/28/2022) Received from [facility], [facility] PRAPARE - Transportation Lack of Transportation (Medical): No Lack of Transportation (Non-Medical): Not on file Physical Activity: Inactive (12/01/2021) Received from [facility], [facility] Exercise Vital Sign Days of Exercise per Week: 0 days Minutes of Exercise per Session: 20 min Stress: No Stress Concern Present (12/01/2021) Received from [facility], [facility] [employer] - Occupational Stress Questionnaire Feeling of Stress : Not at all Social Connections: Moderately Isolated (12/01/2021) Received from [facility], [facility] Social Connection and Isolation Panel [NHANES] Frequency of Communication with Friends and Family: More than three times a week Frequency of Social Gatherings with Friends and Family: Once a week Attends Zoroastrian Services: Never Active Member of Clubs or Organizations: No Attends Club or Organization Meetings: Never Marital Status: Interpersonal Safety: Unknown (04/18/2023) Received from [facility] [place] Safety & [place] Fear of Current or Ex-Partner: Not on file Emotionally Abused: Not on file Physically Abused: Not on file Sexually Abused: Not on file Physically or Sexually Abused: Not on file Housing Instability: Unknown (03/28/2022) Received from [facility], [facility] Housing Stability Vital Sign Unable to Pay [...] Agustin 02/13/24 1603 documented in this encounter [facility] 12-05-2023 History of Present illness Narrative [facility] [address] [place] [address] Patient: Sukhdeep Simental Sex: male : 1965 Age: 58 y.o. PCP: BLAYNE ISABEL MD 12/05/2023 Sukhdeep Simental is here for a(n) follow up for his [facility] work injury. He reports he remains about the same as last visit. Chief Complaint Patient presents with Back Pain HPI: 12/07/2022 L2/3 fusion and revised L3/4, S1 at [facility] per patient. Bilateral SI joint injection on 04/17/2021 with 10% relief, pain is worse. 07/07/21 Bilateral L3/4 Medial branch block with no relief. right L 3, 4 nerve root injection on 09/01/2021 with no relef. Back Pain This is a chronic problem. The current episode started more than 1 year ago (surgery 10/16/18 discectomy and 07/10/2019 fusion in [place] The problem occurs constantly. The problem is [...] disorder Claustrophobia Diabetes mellitus type 2, controlled ([facility]) Fractures Hyperlipidemia Hypertension Joint pain Low back pain Major depression Obesity Osteoarthritis Pulmonary embolism ([facility]) Seasonal allergies Sleep apnea does not use machine Sleep apnea Visual impairment glasses Past Surgical History: Procedure Laterality Date ANKLE SURGERY spurs removed INJECTION BLOCK EPIDURAL CAUDAL STEROID N/A 10/27/2021 Performed by Darren Lackey MD at [facility] INJECTION BLOCK NERVE MEDIAL BRANCH: bilat L 3/4 Bilateral 07/07/2021 Performed by Darren Lackey MD at [facility] INJECTION BLOCK SACROILIAC JOINT Bilateral 04/17/2021 Performed by Darren Lackey MD at [facility] INJECTION SPINE TRANSFORAMINAL: right L 3,4 Nroot Right 09/01/2021 Performed by Darren Lackey MD at [facility] JOINT REPLACEMENT knees- right x2, left x1 KNEE SURGERY rt knee inf removed tka added rods LITHOTRIPSY LUMBAR DISCECTOMY L4-5 Left 10/16/2018 Performed by Suzanne Silverio DO at [facility] STOMACH SURGERY 04/2021 sleeve Allergies Allergen [...] Strain: Low Risk (03/28/2022) Received from [facility], [facility] Overall Financial Resource Strain (CARDIA) Difficulty of Paying Living Expenses: Not hard at all Food Insecurity: No Food Insecurity (12/05/2023) Hunger Screening Food Insecurity - Worry: Never True Food Insecurity - Inability: Never True Transportation Needs: Unknown (03/28/2022) Received from [facility], [facility] PRAPARE - Transportation Lack of Transportation (Medical): No Lack of Transportation (Non-Medical): Not on file Physical Activity: Inactive (12/01/2021) Received from [facility], [facility] Exercise Vital Sign Days of Exercise per Week: 0 days Minutes of Exercise per Session: 20 min Stress: No Stress Concern Present (12/01/2021) Received from [facility], [facility] [employer] - Occupational Stress Questionnaire Feeling of Stress : Not at all Social Connections: Moderately Isolated (12/01/2021) Received from [facility], [facility] Social Connection and Isolation Panel [NHANES] Frequency of Communication with Friends and Family: More than three times a week Frequency of Social Gatherings with Friends and Family: Once a week Attends Zoroastrian Services: Never Active Member of Clubs or Organizations: No Attends Club or Organization Meetings: Never Marital Status: Interpersonal Safety: Unknown (04/18/2023) Received from [facility] Safety & Environment Fear of Current or Ex-Partner: Not on file Emotionally Abused: Not on file Physically Abused: Not on file Sexually Abused: Not on file Physically or Sexually Abused: Not on file Housing Instability: Unknown (03/28/2022) Received from [facility], [facility] Housing Stability Vital Sign Unable to Pay for Housing in the Last Year: Not on file Number of Places Lived in the Last Year: Not on file In the last 12 months, was there a time when you did not have a steady place to sleep or slept in a correction (including now)?: No Review of Systems Constitutional: [...] Agustin 12/12/23 0942 documented in this encounter [facility] 10-07-2023 Telephone encounter Note Pt phoned to ensure todays appt was via phone as noted in appt. Pt unable to manage computer. [facility] 10-07-2023 Miscellaneous Notes Pt phoned to ensure todays appt was via phone as noted in appt. Pt unable to manage computer. documented in this encounter [facility] 10-04-2023 Telephone encounter Note [facility] report XR Lumbar Spine 2-3v scanned to Epic [facility] 10-04-2023 Miscellaneous Notes [facility] report XR Lumbar Spine 2-3v scanned to Epic documented in this encounter [facility] 08-15-2023 History of Present illness Narrative [facility] [address] [place] [address] Patient: Sukhdeep Simental Sex: male : 1965 Age: 57 y.o. PCP: BLAYNE ISABEL MD 08/15/2023 Sukhdeep Simental is here for a(n) follow up for his [facility] work injury. He reports he has pain higher than before surgery. Chief Complaint Patient presents with Back Pain HPI: 12/07/2022 L2/3 fusion and revised L3/4, S1 at [facility] per patient. Bilateral SI joint injection on 04/17/2021 with 10% relief, pain is worse. 07/07/21 Bilateral L3/4 Medial branch block with no relief. right L 3, 4 nerve root injection on 09/01/2021 with no relef. Back Pain This is a chronic problem. The current episode started more than 1 year ago (surgery 10/16/18 discectomy and 07/10/2019 fusion in [place] The problem occurs constantly. The problem has [...] disorder Claustrophobia Diabetes mellitus type 2, controlled ([facility]) Fractures Hyperlipidemia Hypertension Joint pain Low back pain Major depression Obesity Osteoarthritis Pulmonary embolism ([facility]) Seasonal allergies Sleep apnea does not use machine Sleep apnea Visual impairment glasses Past Surgical History: Procedure Laterality Date ANKLE SURGERY spurs removed INJECTION BLOCK EPIDURAL CAUDAL STEROID N/A 10/27/2021 Performed by Darren Lackey MD at [facility] INJECTION BLOCK NERVE MEDIAL BRANCH: bilat L 3/4 Bilateral 07/07/2021 Performed by Darren Lackey MD at [facility] INJECTION BLOCK SACROILIAC JOINT Bilateral 04/17/2021 Performed by Darren Lackey MD at [facility] SPINE TRANSFORAMINAL: right L 3,4 Nroot Right 09/01/2021 Performed by Darren Lackey MD at [facility] JOINT REPLACEMENT knees- right x2, left x1 KNEE SURGERY rt knee inf removed tka added rods LITHOTRIPSY LUMBAR DISCECTOMY L4-5 Left 10/16/2018 Performed by Suzanne Silverio DO at [facility] STOMACH SURGERY 04/2021 sleeve Allergies Allergen [...] Low Risk (03/28/2022) [facility] from [facility], [facility] Overall Financial Resource Strain (CARDIA) Difficulty of Paying Living Expenses: Not hard at all Food Insecurity: No Food Insecurity (08/15/2023) Hunger Screening Food Insecurity - Worry: Never True Food Insecurity - Inability: Never True Transportation Needs: Unknown (03/28/2022) Received from [facility], [facility] PRAPARE - Transportation Lack of Transportation (Medical): No Lack of Transportation (Non-Medical): Not on file Physical Activity: Inactive (12/01/2021) Received from [facility], [facility] Exercise Vital Sign Days of Exercise per Week: 0 days Minutes of Exercise per Session: 20 min Stress: No Stress Concern Present (12/01/2021) Received from [facility], [facility] [employer] [facility] [employer] [facility] - Occupational Stress Questionnaire Feeling of Stress : Not at all Social Connections: Moderately Isolated (12/01/2021) Received from [facility], [facility] Social Connection and Isolation Panel [NHANES] Frequency of Communication with Friends and Family: More than three times a week Frequency of Social Gatherings with Friends and Family: Once a week Attends Zoroastrian Services: Never Active Member of Clubs or Organizations: No Attends Club or Organization Meetings: Never Marital Status: Interpersonal Safety: Unknown (04/18/2023) Received from [facility] [place] Safety & Environment Fear of Current or Ex-Partner: Not on file Emotionally Abused: Not on file Physically Abused: Not on file Sexually Abused: Not on file Physically or Sexually Abused: Not on file Housing Instability: Unknown (03/28/2022) Received from [facility], [facility] Housing Stability Vital Sign Unable to Pay for Housing in the Last Year: Not on file Number of Places Lived in the Last Year: Not on file In the last 12 months, was there a time when you did not have a steady place to sleep or slept in a correction (including now)?: No Review of Systems Constitutional: [...] Agustin 08/15/23 1311 documented in this encounter [facility] 07-30-2023 Telephone encounter Note Called Sukhdeep, no answer, left VM [facility] Work Phone: 07-30-2023 Miscellaneous Notes Called Sukhdeep, no answer, left VM Have sent XR Lumbar order to [facility] fax # [phone] as requested from patient. Pt phoned regarding upcoming visit 10/06 [facility] comp appt. Pt unable to manage virtual visit asking for telephone visit. Pt asking how far in advance to do X-Ray. Pt will have X-Ray done locally at [facility]. Please call and advise Pt phone # [phone] documented in this encounter [facility] 07-30-2023 Telephone encounter Note Have sent XR Lumbar order to [facility] fax # [phone] as requested from patient. [facility] 07-30-2023 Telephone encounter Note Pt phoned regarding upcoming visit 10/06 [place] appt. Pt unable to manage virtual visit asking for telephone visit. Pt asking how far in advance to do X-Ray. Pt will have X-Ray done locally at [facility]. Please call and advise Pt phone # [phone] [facility] 07-26-2023 Telephone encounter Note Office note faxed. Faxed verification received. [facility] 07-26-2023 Miscellaneous Notes Office note faxed. Faxed verification received. Printed for review. Received request from [email or web address] needing more info, in epic for review. documented in this encounter [facility] 07-23-2023 Telephone encounter Note Printed for review. [facility] 07-23-2023 Telephone encounter Note Received request from [email or web address] needing more info, in St[employer] for review. [facility] 05-08-2023 History of Present illness Narrative SPINE SURGERY FOLLOW UP This is a virtual visit using Audio Only Visit. It required patient-provider interaction for the medical decision making as documented below. I have communicated my name and active licensure. The patient's identity and physical location were verified at the time of this visit. Either the patient or their legal open claims representative has been informed of the risks [...] visit. Either the patient or their legal open claims representative has been informed of the risks [...] this encounter [facility] 05-08-2023 Miscellaneous Notes A letter was received from the law office of Jasper Loredo. 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 The information was reviewed by Nadiya Flynn PA-C and he would not like to amend the [facility] claim to allow the above mentioned condition. Call placed to the office of Jasper Loredo to inform him of provider's decision. No answer at the time call was made. Message left. documented in this encounter [facility] 05-08-2023 Telephone encounter Note A letter was received from the law office of Jasper Loredo. 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 The information was reviewed by Nadiya Flynn PA-C and he would not like to amend the [facility] claim to allow the above mentioned condition. Call placed to the office of Jasper Loredo to inform him of provider's decision. No answer at the time call was made. Message left. [facility] 05-07-2023 Miscellaneous Notes Call received from Hannah, patient's ed case manager. She called as patient's MEDCO-14 is expiring soon. Hannah is informed that patient called about this and an updated MEDCO-14 was completed and faxed on 05/03/2023. Hannah states she is his ed case manager and would like information sent [...] will be 05/15/2023-11/14/2023. [facility] 05-07-2023 Telephone encounter Note Call received from Hannah, patient's ed case manager. She called as patient's MEDCO-14 is expiring soon. Hannah is informed that patient called about this and an updated MEDCO-14 was completed and faxed on 05/03/2023. Hannah states she is his ed case manager and would like information sent [...] new dates for restrictions will be 05/15/2023-11/14/2023. [facility] 04-18-2023 Miscellaneous Notes Signed form faxed to number requested. Faxed verification received. Printed for review and signature. Received PT Certification from [facility]. Scanned to chart for provider signature. documented in this encounter [facility] 04-16-2023 Miscellaneous Notes Received imaging disc by mail from [facility] Disc contains CT Lumbar spine done on [...] disease. Received CT Lumbar Spine Report from [facility], in epic to review. documented in this encounter [facility] 02-14-2023 History of Present illness Narrative [facility] [address] [place] [address] Patient: Sukhdeep Simental Sex: male : 1965 Age: 57 y.o. PCP: BLAYNE ISABEL MD 02/14/2023 Sukhdeep Simental is here for a 6 month follow up for his [facility] work injury. Chief Complaint Patient presents with Back Pain HPI: 12/07/2022 L2/3 fusion and revised L3/4, S1 at [facility] per patient. Bilateral SI joint injection on 04/17/2021 with 10% relief, pain is worse. 07/07/21 Bilateral L3/4 Medial branch block with no relief. right L 3, 4 nerve root injection on 09/01/2021 with no relef. Back Pain This is a chronic problem. The current episode started more than 1 year ago (surgery 10/16/18 discectomy and 07/10/2019 fusion in [place] The problem occurs constantly. The problem has [...] disorder Claustrophobia Diabetes mellitus type 2, controlled ([facility]) Fractures Hyperlipidemia Hypertension Joint pain Low back pain Major depression Obesity Osteoarthritis Pulmonary embolism ([facility]) Seasonal allergies Sleep apnea does not use machine Sleep apnea Visual impairment glasses Past Surgical History: Procedure Laterality Date ANKLE SURGERY spurs removed INJECTION BLOCK EPIDURAL CAUDAL STEROID N/A 10/27/2021 Performed by Darren Lackey MD at [facility] INJECTION BLOCK NERVE MEDIAL BRANCH: bilat L 3/4 Bilateral 07/07/2021 Performed by Darren Lackey MD at [facility] INJECTION BLOCK SACROILIAC JOINT Bilateral 04/17/2021 Performed by Darren Lackey MD at [facility] INJECTION SPINE TRANSFORAMINAL: right L 3,4 Nroot Right 09/01/2021 Performed by Darren Lackey MD at [facility] JOINT REPLACEMENT knees- right x2, left x1 KNEE SURGERY rt knee inf removed tka added rods LITHOTRIPSY LUMBAR DISCECTOMY L4-5 Left 10/16/2018 Performed by Suzanne Silverio DO at [facility] STOMACH SURGERY 04/2021 sleeve Allergies Allergen [...] CNA 02/14/23 1237 Sonal Rodriguez CNA 02/14/23 1250 SCARLET Agustin 02/21/23 1155 documented in this encounter [facility] 02-07-2023 Miscellaneous Notes C9 for physical therapy faxed to [facility]. Faxed verification received. documented in this encounter [facility] 02-07-2023 History of Present illness Narrative [...] which included preparing to see the patient, [id number]-qi-cxpx patient care, completing clinical documentation, obtaining and/or reviewing separately obtained history, performing a medically appropriate examination, counseling and educating the patient/family/caregiver, and ordering medications, tests, or procedures. SIGNATURE: Riddhi Goss APRN.CNP PATIENT NAME: Sukhdeep Simental DATE: February 07, 2023 TIME: 2:39 PM PAGER: documented in this encounter [facility] 02-04-2023 Hospital Discharge instructions Patient Education [...] include: ?8 oz (237 mL) of milk, doipjsr-bqrzcwklcdco-vntmx milk, and calcium-fortifiedfruit juice. Calcium-fortified means that [...] ?Spinach (cooked), rhubarb, beets, sweet potatoes, and Bermudian chard. ?Peanuts. ?Potato chips, sudanese fries, and baked potatoes with skin on. ?Nuts and nut products. ?Chocolate. If you regularly take a diuretic medicine, make sure to eat at least 1 or 2 servings of fruits or vegetables that are high in potassium each day. These include: ?Avocado. ?Banana. ?[place], prune, carrot, or tomato juice. ?Baked potato. [...] magnesium, fish oil, or vitamin B6. Take qtzi-nro-yhqqtne and prescription medicines only as told by [...] Casseroles. Pizza. Lasagna. Frozen meals. Potato chips. Kenyan fries. The items listed above may not [...] provider. Document Revised: 05/24/2022 Document Reviewed: 05/24/2022 [employer] Patient Education 2022 [employer]. Follow Up Care 07/27/2022 14:20:34 With:LIDIA JACOBS, Cecelia Jj, URL Address: [facility] [address] , [place] [address]- When:Within 1 Year(s) Comments:w/CT AP w/o Con [facility] 01-23-2023 Miscellaneous Notes Received fax from [facility]. Scanned into [employer]. Also received a RTW from [employer]. Scanned into [employer] as well. documented in this encounter [facility] 12-21-2022 Miscellaneous Notes Patient called with complaints of [facility] not allowing him to chart picker the pain medication that was sent [...] this encounter [facility] 12-20-2022 History of Present illness Narrative [...] which included preparing to see the patient, qvvu-qm-ydwl patient care, completing clinical documentation, obtaining and/or [...] via voice mail, as requested. Scanned into [employer]. Form completed. Awaiting signature. Printed for review. [...] develops weakness to give our office a keyna. Xi Schrader PA-C Patient at [phone] is requesting a call back. He had [...] changed to oxycodone 15 mg 12h. [id number] [place] [address] - [address] - [phone] Pharmacist at [email or web address] wanted to inform the office that this patient already takes Percocet 10-325 every 6 hours, picked it up 13 days ago. They tried running the Percocet but his insurance will not cover both. Please call them back with new instructions. documented in this encounter [facility] 12-11-2022 Note HNO ID: [id number] Author: Lulu Oviedo MD Service: General Internal [...] 10 mg tab( (more content not included)... [facility] 12-10-2022 Note HNO ID: [id number] Author: Lulu Oviedo MD Service: General Internal [...] 10% iv bolu (more content not included)... [facility] 12-09-2022 Note HNO ID: [id number] Author: Alyssa Tim APRN.SUPPLY CONTROLLER Service: Neurosurgery Author Type: Nurse Practitioner Type: [...] is currently not well controlled despite Dilaudid PICK UP DRIVER and Toradol. He denies new weakness, numbness, [...] mg ORAL q 8 H Alyssa Tim APRN.SUPPLY CONTROLLER 1,000 mg at 12/09/22 0559 aluminum-magnesium hydroxide-simethicone 200-200-20 mg/5 mL 30 mL 30 mL ORAL q 6 H PRN [employer], Alyssa, OFFICE SERVICES REPRESENTATIVE.SUPPLY CONTROLLER bisacodyl EC 10 mg tab(s) (DULCOLAX) 10 mg ORAL DAILY PRN [employer], Alyssa, OFFICE SERVICES REPRESENTATIVE.SUPPLY CONTROLLER dextrose 40 % 15 g 15 g ORAL PRN [employer], Alyssa, OFFICE SERVICES REPRESENTATIVE.SUPPLY CONTROLLER Or glucagon 1 mg injection 1 mg INTRAMUSCULAR PRN [employer], Alyssa, OFFICE SERVICES REPRESENTATIVE.SUPPLY CONTROLLER Or dextrose 10% iv bolus 12.5 g INTRAVENOUS PRN [employer], Alyssa, OFFICE SERVICES REPRESENTATIVE.SUPPLY CONTROLLER docusate sodium 100 mg cap(s) (COLACE) 100 mg ORAL BID Thomas Mathew MD 100 mg at 12/09/22 0821 doxazosin 4 mg tab(s) (CARDURA) 4 mg ORAL DAILY Thomas Mathew MD 4 mg at 12/09/22 0821 fentaNYL PICK UP DRIVER 20 mcg/mL in NaCl 0.9% 100 mL (SUBLIMAZE) INTRAVENOUS CONTINUOUS Arch[employer], Alyssa, OFFICE SERVICES REPRESENTATIVE.SUPPLY CONTROLLER ferrous sulfate 325 mg tab(s) 325 mg ORAL DAILY Archual, Alyssa, OFFICE SERVICES REPRESENTATIVE.SUPPLY CONTROLLER 325 mg at 12/09/22 0821 heparin 5,000 Units injection 5,000 Units SUBCUTANEOUS q 12 H [employer], Alyssa, OFFICE SERVICES REPRESENTATIVE.SUPPLY CONTROLLER 5,000 Units at 12/09/22 0821 hydrOXYzine HCl 25 mg tab(s) (ATARAX) 25 mg ORAL q 6 H PRN [employer], Alyssa, OFFICE SERVICES REPRESENTATIVE.SUPPLY CONTROLLER insulin lispro injection (rapid acting) (HumaLOG) SUBCUTANEOUS w MEALS AND HS Archual, Alyssa, OFFICE SERVICES REPRESENTATIVE.SUPPLY CONTROLLER 1 Units at 12/07/22 1803 lactated ringers iv infusion 75 mL/hr INTRAVENOUS CONTINUOUS Thomas Mathew MD 75 mL/hr at 12/09/22 1018 75 mL/hr at 12/09/22 1018 methocarbamol 750 mg tab(s) (ROBAXIN) 750 mg ORAL QID [employer], Alyssa, OFFICE SERVICES REPRESENTATIVE.SUPPLY CONTROLLER NaCl 0.9% iv flush bag 20 mL INTRAVENOUS PRN Thomas Mathew MD naloxone 0.1 mg injection (NARCAN) 0.1 mg INTRAVENOUS q 2 MIN PRN [employer], Alyssa, OFFICE SERVICES REPRESENTATIVE.SUPPLY CONTROLLER omeprazole 20 mg cap(s) (PriLOSEC) 20 mg [...] packet 17 g ORAL DAILY Arch[employer], Alyssa, OFFICE SERVICES REPRESENTATIVE.SUPPLY CONTROLLER 17 g at 12/09/22 0821 simvastatin 10 mg tab(s) (ZOCOR) 10 mg ORAL AT BEDTIME Thomas Mathew MD 10 mg at 12/08/222019 tamsulosin 0.4 mg cap(s) (FLOMAX) 0.4 mg ORAL DAILY Thomas Mathew MD 0.4 mg at 12/09/22 08 traZODone 150 mg tab(s) (DESYREL) 150 mg ORAL AT BEDTIME Archual, Alyssa, OFFICE SERVICES REPRESENTATIVE.SUPPLY CONTROLLER 150 mg at 12/08/222019 valsartan 80 mg tab(s) (DIOVAN) 80 mg ORAL DAILY [employer], Alyssa, OFFICE SERVICES REPRESENTATIVE.SUPPLY CONTROLLER 80 mg at 12/09/22 08 ASSESSMENT AND [...] pain control, Pain management consulted, started Fentanyl PICK UP DRIVER today due to continued uncontrolled pain, Robaxin and Tylenol scheduled, no further Toradol due to CKD 3. -Check postop lumbar XR today -Medicine consult for post-operative medical management -Discharge planning, anticipate discharge home in 1-2 more days. Plan of care discussed with Dr. Mathew via phone. Medication and Non-Pharmacologic VTE Prophylaxis/Anticoagulants 10/25/21 1215 vte pharmacologic prophylaxis contraindicated (fl,oh) (more content not included)... [facility] 12-08-2022 Note HNO ID: [id number] Author: Alyssa Tim APRN.OLGA Service: Neurosurgery Author [...] on POD #2 -Post-operative pain control, Dilaudid PICK UP DRIVER discontinued. Continue Tylenol, Toradol IV, and Robaxin PRN. Start oxycodone every 3 hours PRN and Dilaudid IV PRN. -Check postop XR tomorrow. -Medicine consult for post-operative medical management -Discharge planning, anticipate discharge home in 1-2 more days. Plan of care discussed with Dr Hopper via phone. Medication and Non-Pharmacologic VTE Prophylaxis/Anticoagulants 10/25/21 1215 vte pharmacologic prophylaxis contraindicated (mo,nm) 10/25/21 1215 pneumatic compression stockings (mo,nm) 10/25/21 1215 activity - mobilize patient (mo,nm) VTE Prophylaxis: VTE prophylaxis appropriate SIGNATURE: Alyssa Tim APRN.CNP DATE: December 08, 2022 TIME: 1:50 PM [facility] 12-08-2022 Note HNO ID: [id number] Author: Note, Interface Service: ? Author Type: ? Type: Progress Notes Filed: 12/08/2022 3:59 AM Note Text: Epic Scheduled Downtime: 12/08/2022 1:00:00 AM to 12/08/2022 1:28:00 AM [facility] 12-07-2022 Note HNO ID: [id number] Author: Aaron Noriega AA Service: Anesthesiology Author Type: Rail Engineer Type: Anesthesia Procedure Notes Filed: 12/07/2022 8:04 [...] December 07, 2022 TIME: 8:03 AM CSN: [id number] [facility] 12-06-2022 Evaluation note Encounter Date Diagnosis [...] has adequate iron stores. 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 12/07/2022 documented as of this encounter (statuses as of 12/18/2022) [address]27-2023 History of Past illness Narrative* Problem Noted Date Diagnosed Date Resolved Date Secondary hyperparathyroidism 11/21/2022 11/21/2022 11/21/2022 Corneal edema, unspecified 12/10/2013 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 12/07/2022 documented as of this encounter (statuses as of 12/21/2022) [address]23 History of Past illness Narrative* Problem Noted Date Diagnosed Date Resolved Date Secondary hyperparathyroidism 11/21/2022 11/21/2022 11/21/2022 Corneal edema, unspecified 12/10/2013 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 12/07/2022 documented as of this encounter (statuses as of 12/21/2022) [address]-2023 History of Past illness Narrative* Problem Noted Date Diagnosed Date Resolved Date Secondary hyperparathyroidism 11/21/2022 11/21/2022 11/21/2022 Corneal edema, unspecified 12/10/2013 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 12/07/2022 documented as of this encounter (statuses as of 01/24/2023) [address]-2023 History of Past illness Narrative* Problem Noted Date Diagnosed Date Resolved Date Secondary hyperparathyroidism 11/21/2022 11/21/2022 11/21/2022 Corneal edema, unspecified 12/10/2013 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 Questions answered. Patient verbalizes understanding via teach back. Additional comments : Informed to call with any questions or concerns. Juan Pablo Nova RN [facility] of Present illness Narrative* Thomas [...] PAGER: [facility] NoteHNO ID: [id number] Author: Sonya Wilhelm APRN.SUPPLY CONTROLLER Service: ? Author Type: Nurse Practitioner Type: Progress Notes Filed: 10/16/2022 4:03 PM Note Text: Per Triage: Sukhdeep Simental is a 57 year old male that requests evaluation of lumbar spine. Per review, they have symptoms of LBP Hip pain Leg pain (R) Numbness, Tingling Toes Trouble lifting leg (R) Prev surgery yes L4-S1 fusion in [facility] CMT: Injection Muscle relaxants, Zanaflex Studies (Reports [...] schedule with first available lumbar revision surgeon. [facility]08-22-2023 History of Present illness Narrative* Sonya Wilhelm APRN.SUPPLY CONTROLLER - 10/16/2022 3:51 PM EDT Per Triage: Sukhdeep Simental is a 57 year old male that requests evaluation of lumbar spine. Per review, they have symptoms of LBP Hip pain Leg pain (R) Numbness, Tingling Toes Trouble lifting leg (R) Prev surgery yes L4-S1 fusion in [facility] CMT: Injection Muscle relaxants, Zanaflex Studies (Reports [...] Simental Are you being referred by a [place] for Spine Health Provider or Pain Management Provider at [facility]? No If answer is YES please [...] facility where the MRI/CT/myelogram was completed: [facility] Address: [facility] [place] [address] MRI/CT/myelogram viewable in Epic: No If not, please provide [phone] to fax in imaging reports for review. [...] injections and/or physical therapy was completed Injection [facility] Address: [address] [place] [address] Have you tried any other kinds of [...] of where the surgery was completed: 2019 [facility] Spine, Neurosurgery Address: [address] [place] [address] Additional Comments [phone] (Home Phone) [facility] NoteHNO ID: [id number] Author: Adonis Lopez Service: ? Author Type: ? Type: Progress Notes Filed: 10/16/2022 4:03 PM Note Text: Patient name: Sukhdeep Simental Are you being referred by a [place] for Spine Health Provider or Pain Management Provider at [facility]? No If answer is YES please [...] facility where the MRI/CT/myelogram was completed: [facility] Address: [address] [place] [address] MRI/CT/myelogram viewable in Epic: No If not, please provide [phone] to fax in imaging reports for review. [...] injections and/or physical therapy was completed Injection [facility] Address: [address] [place] [address] Have you tried any other kinds of [...] of where the surgery was completed: 2019 [facility] Spine, Neurosurgery Address: [address] [place] [address] Additional Comments [phone] (Home Phone)[facility]04-27-2023 Evaluation note* Encounter Date Diagnosis Assessment Notes [...] will continue to monitor without any medications. [employer] Other 01-23-2023 Hospital Discharge instructions Patient Education [...] include: ?Spinach. ?Rhubarb. ?Beets. ?Potato chips and sudanese fries. ?Nuts. If you regularly take a diuretic medicine, make sure to eat at least 1 2 fruits or vegetables high in potassium each day. These include: ?Avocado. ?Banana. ?[place], prune, carrot, or tomato juice. ?Baked potato. [...] Casseroles. Pizza. Lasagna. Frozen meals. Potato chips. Kenyan fries. Summary You can reduce your risk [...] 06/08/2011 Document Revised: 06/03/2019 Document Reviewed: 01/22/2017 [employer] Patient Education 2020 Genero. Follow Up Care 03/15/2022 09:49:40 With:LIDIA JACOBS, Cecelia Jj, URL Address: [facility] [address] [place] [address]- When: Unknown [facility] 01-16-2023 NoteIndication: Renal mass. Comparison: 07/14/2021 exam. [...] Electronically authenticated by: CITLALI GIRON Date: 2022-03-12 18:03[facility]10-21-2022 Evaluation note* Encounter Date Diagnosis Assessment [...] be cultured for infection, gonorrhea, chlamydia, yeast. [employer] Other 08-31-2022 Evaluation note* Encounter Date Diagnosis [...] paraproteinemia due to the CKD and anemia. [employer] Other 04-01-2022 History of Present illness Narrative* [...] from the original note were not included. [place] Assistant Loan Processor Progress Note Date: 05/26/2021 Patient name: Sukhdeep [...] Ok for d/c from cardiology standpoint. [employer] [phone] * Octavio Mcclellan, - 05/25/2021 5:42 PM [...] Foreman RN - 05/25/2021 8:32 AM EDT [place] Assistant Loan Processor Documentation Note Admission Dx: S/P laparoscopic sleeve [...] on an annual basis Tona Foreman RN [place] Assistant Loan Processor * Sonya Ramírez, DO - 05/25/2021 6:45 [...] Day of Surgery/Procedure As a patient at [facility] you can expect quality medical and nursing care that is centered on your individual needs. Our goal is to make your surgical experience as comfortableas possible . Directions to the Surgery Center [facility] is located at [address] [place] [address]. Please pull into the Emergency parking lot and stop at the upsetter setter up ojeda. We offer free upsetter setter up service for all our surgery patients, if you choose not to have upsetter setter up parking we have additional parking across the street.You will enter the facility under the blue canopy/walkway following the [facility] sign. Please stop at the medical receptionist desk where you will be checked in by the staff. If you have any questions please call [phone]. Transportation after your procedure. You will need a friend or family member to drive you home after your procedure. 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 [place] your teeth but do not swallow water. [...] or the day of surgery, please call [phone], or [phone] documented in this [facility] [employer] Phone: 1(731) 441-124603-31-2022 Hospital Discharge instructions* Discharge Instr - KAMARI* Jenny Lentz RN - 05/25/2021 5:44 PM EDT PHYSICIAN SIGNATURE: * Additional Instructions* Jenny Lentz, RN - 05/26/2021 Discharge Instructions for Bariatric Surgery You had a Laparoscopic Sleeve Gastrectomy (51106) surgery to treat obesity. Recovery from this [...] scheduled appointment, please call the office at [phone]. Call Your Doctor If Any of the [...] sent through Care Everywhere. 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 Our goal is to make your surgical experience as comfortableas possible . Directions to the Surgery Center [facility] is located at [address] [place] [address]. Please pull into the Emergency/Surgery Center parking lot and stop at the [employer] pte ojeda. We offer free upsetter setter up service for all our surgery patients, if you choose not to have upsetter setter up parking we have additional parking across the [...] pharmacy bottles in a zip lock bag. [place] your teeth but do not swallow water. [...] DAY OF your surgery, you may call [phone] documented in this encounterProvidence HospitalLaComunity Work Phone: evaluation + Plan note Future Appointments Appointment Date:07/16/2022 02:45:00 PM Scheduled Provider:Cecelia MURILLO MD Location:[facility] Appointment Type:URO Office Visit [facility] evaluation + Plan note Future Appointments Appointment Date:02/04/2023 09:15:00 AM Scheduled Provider:Cecelia MURILLO MD Location:[facility] Appointment Type:URO Office Visit General Surgery [place] Evaluation + Plan note Future Appointments Appointment Date:02/03/2024 10:30:00 AM Scheduled Provider:Cecelia MURILLO MD Location:[facility] Appointment Type:URO Office Visit Diagnostic Tests Pending * PSA Total 02/04/23 [facility] evaluation + Plan note Future Appointments Appointment Date:08/13/2025 10:45:00 AM Scheduled Provider:Cecelia MURILLO MD Location:[facility] Appointment Type:URO Office Visit Diagnostic Tests Pending * PSA Total 06/25/25 [facility] evaltokwbd note* Diagnosis Pre-op chest exam Pre-operative respiratory examination documented in this encounter [facility] Work Phone: evalogfjtk note* Diagnosis S/P laparoscopic sleeve gastrectomy- Primary documented in this encounter [facility] Phone: evaluation noteNo InformationNort PopUp[employer] Other evaluation noteNo assessment information available [facility] Work Phone: Evaluation note* Diagnosis Lumbar adjacent segment disease with spondylolisthesis- Primary Lumbar adjacent segment disease with spondylolisthesis documented in this encounter [facility]* Diagnosis Lumbar adjacent segment disease with spondylolisthesis- Primary documented in this encounter [facility]* Diagnosis Lumbar adjacent segment disease with spondylolisthesis- Primary documented in this encounter [facility] note* Diagnosis Radiculopathy, lumbar region- Primary Thoracic or lumbosacral neuritis or radiculitis, unspecified documented in this encounter [facility]* Diagnosis Onset Date Resolution Status CKD (chronic kidney disease) stage 3, GFR 30-59 ml/min acute [id number] acute Hyperuricemia acute Microscopic hematuria acute Nephrolithiasis acute Secondary hyperparathyroidism acute Type 2 diabetes 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 acute [facility] Work Phone: evaluqfkil note* Diagnosis Spinal stenosis, lumbar region, with neurogenic claudication- Primary documented in this encounter [facility]* Diagnosis Spinal stenosis, lumbar region, with neurogenic claudication- Primary documented [facility] this encounter [facility]* Diagnosis Spinal stenosis, lumbar region, with neurogenic claudication- Primary documented [facility] this encounter [facility] Narrative - Reported* Type [...] GASTRIC SLEEVE 04/2021 Hospitalization History SEE ABOVE [employer] Other [facility] general Narrative - Reported* Type Description Date [...] REPLACEMENT 04/16 22 Hospitalization History SEE ABOVE [employer] Other Hospital course Narrative No data available for this section [facility] Hospital Discharge instructions No data available for this section General Surgery [place] InstructionsNot on filedocumented in this encounter [facility] filedocumented in this encounter [facility]Not on filedocumented in this encounter [facility]Not on filedocumented in this encounter [facility] No data available for this section [facility] reason for referral (narrative)* Diagnostic Procedure Only (Routine) - Pending Review Specialty Diagnoses / Procedures Referred By Enoch luna Referred To Contact XR IMAGING Diagnoses Lumbar adjacent segment disease with spondylolisthesis Procedures XR LUMBAR LIMITED 2V AP/LAT RADEX SPINE LUMBOSACRAL 2/3 VIEWS Singh Morgan PA-C [address] [id number] Xr Imaging [place] [address] Referral ID Status Reason Start Date Expiration Date Visits Requested Visits Authorized [id number] Pending Review Auto-Generat ed Referral 3 01/19/2024 1 1 [facility] for referral (narrative)* Diagnostic Procedure Only (Routine) - Pending Review Specialty Diagnoses / Procedures Referred By Enoch luna Referred To Contact XR IMAGING Diagnoses Radiculopathy, lumbar region Procedures XR LUMBAR LIMITED 2V AP/LAT RADEX SPINE LUMBOSACRAL 2/[place] [address] [place] [address] [place] [address] Referral ID Status Reason Start Date Expiration Date Visits Requested Visits Authorized [id number] Pending Review Auto-Generat ed Referral 05/08/2023 06/06/2024 1 1 [facility] for visit Narrative* Auth/Cert Specialty Diagnoses / Procedures Referred By Contac t Referred To Contact Diagnoses Morbid obesity (HCC) Type II diabetes circulatory disorder causing erectile dysfunction (HCC) Hypertension MORBID OBESITY, TYPE II DIABETES, HYPERTENSION Procedures DE LAP, JUAN RESTRICT PROC, LONGITUDINAL GASTRECTOMY XI ROBOTIC LAPOROSCOPIC GASTRECTOMY SLEEVE, LIVER BIOPSY, EGD- GI SCHEDULED Octavio Mcclellan DO [address] [facility] [address] [place] [address] [employer] [address] [place] [address] Referral ID Status Reason Start Date Expiration Date Visits Re quested Visits Authorized [id number] 1 1 [place] Phone: Advance Directives No Advanced Directives Records FoundDocuments on File Type Date Recorded Patient Network Control Technician Expl anation Advance Directives and Living Will Power of Spray Gun Sizer Advance Directive Response Recorded Date/ Time Advance Directives No September 16 2:32pm Documents on File Type Date Recorded Patient Network Control Technician Expl anation ACP-Advance Directive ACP-Power of Spray Gun Sizer Documents on File Type Date Recorded Patient Network Control Technician Expl anation ACP-Advance Directive ACP-Power of Spray Gun Sizer Latest Code Status on File Code Status [...] retention in legs Alexandro Muhammad MD [address] [place] [address] Maite John MD [address] [place] [address] Scheduling Instructions . Specialty Diagnoses / Procedures Referred By Contac t Referred To Contact [facility] Diagnoses Lumbar adjacent segment disease with spondylolisthesis Procedures CONSULT TO [facility]) OFFICE/OUTPATIENT [facility] 60-[place] [address] [address] [id number] Referral ID Status Reason Start Date Expiration Date Visits Requested Visits Authorized [id number] Pending Review PCP Requested Referral 11/05/2022 11/05/2023 1 1 Specialty Diagnoses / Procedures Referred By Contac t Referred To Contact [facility] Diagnoses Lumbar adjacent segment disease with spondylolisthesis Procedures CONSULT TO PHYSICAL THERAPY PHYSICAL THERAPY EVALUATION HIGH COMPLEX 45 MINS Riddhi Goss, OFFICE SERVICES REPRESENTATIVE.SUPPLY CONTROLLER [address] [place] [address] [facility] [address] [place] [address] Referral ID Status Reason Start Date Expiration Date Visits Requested Visits Authorized [id number] Pending Review Auto-Generat ed Referral 3 02/07/2024 [...] has been treated in the past by vascular physician as well as his PCP. They contribute [...] file Gets together: Not on file Attends holiness service: Not on file Active member of [...] 01/08/2020 2:19 PM Patient: Sukhdeep Simental MR#: [id number] : 1965 Age: 54 y.o. 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 [...] []Chair,[]cane, []bracing Are you followed by a performance consultant? [] [x] Name: Are you followed by [...] kidney disease) stage 3, GFR 30-59 ml/min [id number] Hyperuricemia Microscopic hematuria Nephrolithiasis Secondary hyperparathyroidism Type 2 diabetes mellitus with diabetic chronic kidney disease Discharge Instructions * Attachments The following attachments cannot be sent through Care Everywhere. * Back Pain (Sierra Leonean) documented in this encounter Additional Source Comments [...] CREATED AUTHOR AUTHOR'S ORGANIZ ATION 06/10/2019 [facility] DATE CREATED AUTHOR AUTHOR'S ORGANIZ ATION 07/21/2021 [facility] DATE CREATED AUTHOR AUTHOR'S ORGANIZ ATION 10/22/2021 [facility] DATE CREATED AUTHOR AUTHOR'S ORGANIZ ATION 01/23/2022 [facility] DATE CREATED AUTHOR AUTHOR'S ORGANIZ ATION 08/04/2022 [facility] DATE CREATED AUTHOR AUTHOR'S ORGANIZ ATION 12/12/2022 [facility] DATE CREATED AUTHOR AUTHOR'S ORGANIZ ATION 07/27/2023 [facility] DATE CREATED AUTHOR AUTHOR'S ORGANIZ ATION 02/16/2024 [facility] DATE CREATED AUTHOR AUTHOR'S ORGANIZ ATION 06/19/2024 [facility] DATE CREATED AUTHOR AUTHOR'S ORGANIZ ATION 06/30/2024 [facility] DATE CREATED AUTHOR AUTHOR'S ORGANIZ ATION 08/10/2024 [facility] Reason for Visit (unrecogniz ed section and content) Status Reason Specialty Diagnoses / Procedures Referred By Contact Referred To Contact Pending Review Diagnoses Hx of total knee arthroplasty, right Procedures XR BONE LENGTH STUDY Alexandro Muhammad MD [address] [place] [address] Reason Comments Pain Status Reason Specialty Diagnoses / Procedures Referred By Contact Referred To Contact Closed Cardiovascular Medicine Diagnoses Localized edema Procedures ECHOCARDIOGRAM DE ECHO HEART XTHORACIC,COMPLETE W DOPPLER Suzanne Pruett MD [address] [place] [address] Horace Buc Echocardiograph y [address] [place] [address] Reason Comments Back Pain Lower back pain s/p slip on ice Buttocks Pain Rt buttocks pain Reason Comments New Patient Lumbar spine Specialty Diagnoses / Procedures Referred By Contac t Referred To Contact Neurosurgery / NEUROSURGERY Diagnoses lumbar spine eHealth records requested Procedures REFERRAL TO [facility] FINANCIAL COUNSELOR NEW SPINE SURGICAL TRIAGE Jason Miller [address] [place] [address] [place] [address] [place] [address] Referral ID Status Reason Start Date Expiration Date V isits Requested Visits Authorized [id number] Outside PCP 11/05/2022 01/04/2023 99 99 Reason [...] POST OP NEUS/NRES Self Xi Schrader PA-C [address] [place] [id number] Referral ID Status Reason Start Date Expiration Date Visits Re quested Visits Authorized [id number] Closed 12/20/2022 02/24/2023 1 1 Reason Comments Received Outside Medical Records promedi ca Reason Comments Follow Up Specialty Diagnoses / Procedures Referred By Contac t Referred To Contact Neurosurgery / NEUROSURGERY Diagnoses Follow-up exam Follow Up Procedures OFFICE/OUTPATIENT ESTABLISHED MOD MDM 30-39 MIN EST NI PATIENT Self Xi Schrader PATed [address] [place] [address] Referral ID Status Reason Start Date Expiration Date Visits Re quested Visits Authorized [id number] Closed 02/07/2023 02/07/2023 1 1 Reason Comments PT Certification Specialty Diagnoses / Procedures Referred By Contac t Referred To Contact Neurosurgery / NEUROSURGERY Diagnoses Lumbar adjacent segment disease with spondylolisthesis discuss imaging and BWC requirements Procedures PHYS/QHP TELEPHONE EVALUATION 5-10 MIN [place]IDEO [place] [address] [place] [address] Referral ID Status Reason Start Date Expiration Date V isits Requested Visits Authorized [id number] Denied Patient Cleared - Admin/Chairm an/Director advise [...] November 07, 2023 End: November 07, 2023 Graduate Advisor Relationship Specialty Start Date End Date Blayne Isabel MD [address] [id number] PCP - General Family Medicine 04/11/19 Graduate Advisor Relationship Specialty Start Date End Date Blayne Isabel MD [address] [id number] PCP - General Family Medicine 04/11/19 Graduate Advisor Relationship Specialty Start Date End Date Blayne Isabel MD [address] [id number] PCP - General Family Medicine 04/11/19 Graduate Advisor Relationship Specialty Start Date End Date Blayne Isabel MD [address] [id number] PCP - General Family Medicine 04/11/19 Team Status: Inactive Member Role Status Dates STEPH Sarkar Attending Provider Active Team Status: Inactive Member Role Status Dates PHYSICIAN NO FAMILY Primary Care Provider Active Gianni James Nelson , DO Attending Provider Active Team Status: Inactive Member Role Status Dates Estephanie Lowry MARBLE INSTALLER SUPERVISOR-C Attending Provider Active PHYSICIAN NO FAMILY Primary Care Provider Active Graduate Advisor Relationship Specialty Start Date End Date Blayne Isabel MD PCP - General Family Medicine 11/06/13 Graduate Advisor Relationship Specialty Start Date End Date Blayne Isabel MD PCP - General Family Medicine 11/06/13 Graduate Advisor Relationship Specialty Start Date End Date Blayne Isabel MD PCP - General Family Medicine 11/06/13 Graduate Advisor Relationship Specialty Start Date End Date Blayne Isabel MD PCP - General Family Medicine 11/06/13 Graduate Advisor Relationship Specialty Start Date End Date Blayne Isabel MD PCP - General Family Medicine 11/06/13 Graduate Advisor Relationship Specialty Start Date End Date Blayne Isabel MD PCP - General Family Medicine 11/06/13 Graduate Advisor Relationship Specialty Start Date End Date Blayne Isabel MD PCP - General Family Medicine 11/06/13 Graduate Advisor Relationship Specialty Start Date End Date Blayne Isabel MD PCP - General Family Medicine 11/06/13 Graduate Advisor Relationship Specialty Start Date End Date Blayne Isabel MD PCP - General Family Medicine 11/06/13 Graduate Advisor Relationship Specialty Start Date End Date Blayne Isabel MD PCP - General Family Medicine 11/06/13 Graduate Advisor Relationship Specialty Start Date End Date Blayne Isabel MD PCP - General Family Medicine 11/06/13 Graduate Advisor Relationship Specialty Start Date End Date Blayne Isabel MD PCP - General Family Medicine 11/06/13 Graduate Advisor Relationship Specialty Start Date End Date Blayne Isabel MD PCP - General [facility] Medicine 10/08/18 Graduate Advisor Relationship Specialty Start Date End Date Blayne Isabel MD PCP - General [facility] Medicine 10/08/18 Graduate Advisor Relationship Specialty Start Date End Date Blayne Isabel MD [address] [place] [address] PCP - [facility] 10/08/18 Graduate Advisor Relationship Specialty Start Date End Date Blayne Isabel MD [address] [place] [address] PCP - General [facility] Medicine 10/08/18 Graduate Advisor Relationship Specialty Start Date End Date Blayne Isabel MD PCP - General [facility] Medicine 10/08/18 Graduate Advisor Relationship Specialty Start Date End Date Blayne [...] pt. sleeping) 0745 (Given - Provider: Dottie Otooel RCP)1301 (Given - Provider: Dottie Otoole RCP)1949 (Given - Provider: Yamilka Doyle OTR [employer] TRUCK DRIVER) 0729 (Not Given - Provider: Swapna De Anda OTR [employer] TRUCK DRIVER - Reason: Patient/family refused - Comment: pt [...] to back table, 1000 ml. for suction folder and notcher.) sodium chloride flush 0.9 % injection 5-40 [...] BE BASED ON THE PRIMARY CLINICAL RECORDS. [facility]. provides no warranty or guarantee of the accuracy or completeness of information in this document.
[2024-11-12] MEDS: TAMSULOSIN HCL 0.4 MG CAPSULE PO (22:54)
[2024-11-12] MEDS: HYDROMORPHONE HCL 1 MG/ML CARTRIDGE 0.5 MG IVP (22:58)
[2024-11-12] MEDS: OXYBUTYNIN CHLORIDE 5 MG TAB XL PO (23:02)
[2024-11-12] MEDS: TIZANIDINE HCL 4 MG TABLET 8 MG PO (23:02)
[2024-11-12] MEDS: PANTOPRAZOLE SODIUM 40 MG TABLET.DR PO (23:02)
[2024-11-13] VITALS (63 sets, daily range): BP systolic 98–157; BP diastolic 63–117; PULSE 55–133; TEMP 36.2–37.3; O2SAT 91–100
[2024-11-13] MEDS: HYDROMORPHONE HCL 1 MG/ML CARTRIDGE 0.5 MG IVP ×2 (05:09→09:05)
[2024-11-13 05:58] LABS: Hematocrit 40.1 % (42.0-54.0); Hemoglobin 13.7 g/dL (14.0-18.0); Immature Granulocytes Abs Auto 0.01 10^3/uL (0.00-0.03); Immature Granulocytes Pct Auto 0.2 % (0.0-0.5); Lymphocytes Absolute Auto 2.3 10^3/uL (1.2-3.8); Mean Corpuscular HGB Conc 34.2 g/dL (29.9-35.2); Mean Corpuscular Hemoglobin 31.7 pg (25.9-34.0); Mean Corpuscular Volume 92.8 fL (80.0-94.0); Platelet Count 196 10^3/uL (150-450); Red Blood Count 4.32 10^6/uL (4.70-6.10); White Blood Count 6.3 10^3/uL (4.0-11.0)
[2024-11-13 06:05] LABS: Anion Gap 10.4; Blood Urea Nitrogen 27.0 mg/dL (7.0-18.0); Calcium 8.3 mg/dL (8.5-10.1); Carbon Dioxide 29.7 mmol/L (21.0-32.0); Chloride 108 mmol/L (98-107); Estimated GFR (African America >60 (>=60 mL/min/1.73m^2); Estimated GFR (Non-African Ame 54 (>=60 mL/min/1.73m^2); Glucose 102 mg/dL (74-106); Potassium 4.1 mmol/L (3.5-5.1); Sodium 144 mmol/L (136-145)
--- NOTE | 2024-11-13 08:00 | CM.NOTE ---
Rounds made with Dr. Pelaez, discussed with pt plan of care. Pt continues with flank pain, pt will go to OR this afternoon. Dr. Pelaez will reevaluate pt post-op for discharge planning.
--- NOTE | 2024-11-13 08:44 | PM.HP ---
HPI H&P: HPI History of Present Illness Chief complaint: BACK PAIN, CALCULUS OF KIDNEY Narrative: Mr. Torres is a 59-year-old gentleman who came in with pain and discomfort in the right flank. Second emergency room within 24 hours. Reported gross hematuria. Nausea but no vomiting. No chest pain. No shortness of breath. No diarrhea. Opioid HPI Opioid Management Most Recent Pain and Opioid Data: Last Pain Scale 7 Today, 08:31 Last Pain Assessment 11/12/24, 23:31 Last ED Pain Assessment 11/11/24, 20:43 Last MAR Pain Assessment 11/11/24, 20:16 Last ORT Total Score 0 11/12/24, 22:57 Last ORT Risk Category Low Risk 11/12/24, 22:57 Review of Systems ROS Status of ROS 10 or more systems reviewed and unremarkable except as noted in history and below [facility] Medical History (Updated 11/13/24 @ 08:45 by Janusz Pelaez MD) History of pulmonary embolism ?Z86.711 - Personal history of pulmonary embolism (ICD-10) History of kidney stones ?Z87.442 - Personal history of urinary calculi (ICD-10) Social History Highest level of school completed/degree received: high school graduate Little interest or pleasure in doing things: not at all Feeling down, depressed, or hopeless: not at all Meds Home Medications and Allergies Home Medications ?Medication ?Instructions ?Recorded ?Confirmed ?Type ketorolac 10 mg tablet 10 mg PO Q6H PRN pain 4 days #14 11/11/24 11/12/24 Rx tabs bumetanide 1 mg tablet 1 mg PO DAILY 11/12/24 11/12/24 History doxazosin 4 mg tablet 4 mg PO DAILY 11/12/24 11/12/24 History doxepin 10 mg capsule 10 mg PO QPM 11/12/24 11/12/24 History irbesartan 150 mg tablet 150 mg PO DAILY 11/12/24 11/12/24 History omeprazole 20 mg capsule,delayed 20 mg PO BID 11/12/24 11/12/24 History release oxycodone-acetaminophen 10 mg-325 1 tab PO Q6H PRN pain 11/12/24 11/12/24 History mg tablet tamsulosin 0.4 mg capsule 0.4 mg PO DAILY 11/12/24 11/12/24 History tizanidine 4 mg tablet 8 mg PO QPM 11/12/24 11/12/24 History trazodone 150 mg tablet 150 mg PO QPM 11/12/24 11/12/24 History Allergies Allergy/AdvReac Type Severity Reaction Status Date / Time No Known Drug Allergies Allergy Verified 11/11/24 16:52 Exam Narrative Exam Narrative: [pt is awake and alert. oriented to place, time and person HEENT: [place] conjunctiva and NL buccal mucosa Neck: Supple, no tenderness Endocrine: No Thyromegaly. Vascular: No JVD or carotid bruit. Lymphatic: No cervical lymphadenopathy. Chest: CTA no DTP. Heart RRR, no extra sound or murmur. Abd: Soft, tenderness in the right mid abdomen, right flank, no rebound and no rigidity. Increase abd girth therefore clinically I could not exclude the possibility of intra abd mass or organomegaly. LE: No cyanosis or clubbing, no varices or edema. Neuro: A A O. Nl speech, comprehension and attention. Nl and symetrical motor and tone examination through out. []] Constitutional Vital Signs, click to edit/add: Last Vital Signs Temp 97.9 F 11/13/24 07:40 Pulse 60 11/13/24 07:40 Resp 18 11/13/24 07:40 BP 120/78 11/13/24 07:40 Pulse Ox 96 11/13/24 07:40 O2 Del Method Room Air 11/13/24 07:40 O2 Flow Rate 2 11/13/24 03:55 Results Labs Labs: Short CBC 11/12/24 11/13/24 Range/Units 15:15 04:58 WBC 6.5 6.3 (4.0-11.0) 10^3/uL Hgb 14.5 13.7 L (14.0-18.0) g/dL Hct 41.1 L 40.1 L (42.0-54.0) % Plt Count 201 196 (150-450) 10^3/uL BMP 11/12/24 11/13/24 15:15 04:58 Sodium 144 144 Potassium 3.8 4.1 Chloride 108 H 108 H Carbon Dioxide 27.1 29.7 BUN 27.0 H 27.0 H Creatinine 1.44 H 1.35 H Glucose 154 H 102 Calcium 8.4 L 8.3 L Urine 11/12/24 Range/Units 15:10 Urine Color Yellow (YELLOW) Urine Clarity Clear (CLEAR) Urine pH 5.0 (5.0-9.0) Ur Specific [place] 1.025 (1.005-1.025) Urine Protein Negative (NEG/TRACE) mg/dL Urine Glucose (UA) Negative (NEGATIVE) mg/dL Assessment and Plan Assessment and Plan (1) Calculus of kidney: (2) CKD (chronic kidney disease): (3) Hypertension: Plan Renal stones associated with pain and discomfort in the right flank. I have accepted to observe patient on the medical floor. N.p.o. pending urology evaluation and intervention if needed. IV fluid infusion IV antibiotic. Further needed diagnostic and therapeutic intervention already bedrest by urology team. Hypertension. Blood pressure is stable off irbesartan and Cardura. Continue to monitor. Keep him off for BP meds for now CKD. Stage II-III dated back all the way to 2022. At baseline at this time. Monitor daily given his acute urological issues DVT prophylaxis Avoid pharmacologic intervention for 2448 hrs.
--- NOTE | 2024-11-13 08:54 | ECG_ITS ---
[facility] Test Date: 2024-11-13 Pat Name: SUKHDEEP SIMENTAL Department: Room: [facility] Gender: Male Junior Architect: : 1965 Requested By: BLAYNE ISABEL Order Number: [id number] Reading MD: GENESIS CAR M.D. Measurements Intervals [place] Rate: 132 P: GA: QRS: -15 QRSD: 95 T: 233 QT: 328 QTc: 487 Interpretive Statements ATRIAL FIBRILLATION WITH RAPID VENTRICULAR RESPONSE NONSPECIFIC ST & T-WAVE ABNORMALITY Compared to ECG 07/15/2021 13:14:48 T-wave abnormality now present Sinus rhythm no longer present Electronically Signed On 11-13-2024 19:59:45 EDT by GENESIS CAR M.D.
--- NOTE | 2024-11-13 11:48 | PM.URCN ---
Urology - CN: HPI Date of Consult Consult date: 11/13/24 Requesting Physician: Janusz Pelaez MD Primary Care Provider: Derick Packer MD Consult Narrative Reason for consult IM: Right kidney stones Narrative: 59-year-old male with a history of kidney stones admitted after presents emergency department yesterday with a 4-day history of severe right flank pain. No nausea or vomiting. No fevers. No gross hematuria. No change in urination. Patient is known to Dr. Ag. Urology was consulted for right renal pelvic calculus. cc:: CC: Janusz Pelaez MD Review of Systems ROS Status of ROS: 10 or more systems reviewed and unremarkable except as noted in history and below [facility] Medical History (Updated 11/13/24 @ 08:45 by Janusz Pelaez MD) History of pulmonary embolism ?Z86.711 - Personal history of pulmonary embolism (ICD-10) History of kidney stones ?Z87.442 - Personal history of urinary calculi (ICD-10) Surgical History (Updated 11/13/24 @ 11:50 by Spenser Fernandez MD) H/O ureteroscopy ?Z98.890 - Other specified postprocedural states (ICD-10) Social History Highest level of school completed/degree received: high school graduate Little interest or pleasure in doing things: not at all Feeling down, depressed, or hopeless: not at all Meds Home Medications and Allergies Home Medications ?Medication ?Instructions ?Recorded ?Confirmed ?Type ketorolac 10 mg tablet 10 mg PO Q6H PRN pain 4 days #14 11/11/24 11/12/24 Rx tabs bumetanide 1 mg tablet 1 mg PO DAILY 11/12/24 11/12/24 History doxazosin 4 mg tablet 4 mg PO DAILY 11/12/24 11/12/24 History doxepin 10 mg capsule 10 mg PO QPM 11/12/24 11/12/24 History omeprazole 20 mg capsule,delayed 20 mg PO BID 11/12/24 11/12/24 History release oxycodone-acetaminophen 10 mg-325 1 tab PO Q6H PRN pain 11/12/24 11/12/24 History mg tablet tamsulosin 0.4 mg capsule 0.4 mg PO DAILY 11/12/24 11/12/24 History tizanidine 4 mg tablet 8 mg PO QPM 11/12/24 11/12/24 History trazodone 150 mg tablet 150 mg PO QPM 11/12/24 11/12/24 History irbesartan 300 mg tablet 150 mg PO DAILY 11/13/24 History simvastatin 10 mg tablet 10 mg PO DAILY 11/13/24 History testosterone cypionate 200 mg/mL 150 mg IM Q14D 11/13/24 History intramuscular oil Allergies Allergy/AdvReac Type Severity Reaction Status Date / Time No Known Drug Allergies Allergy Verified 11/11/24 16:52 Exam Constitutional Vital Signs, click to edit/add: Last Vital Signs Temp 97.9 F 11/13/24 07:40 Pulse 60 11/13/24 07:40 Resp 18 11/13/24 07:40 BP 120/78 11/13/24 07:40 Pulse Ox 96 11/13/24 07:40 O2 Del Method Room Air 11/13/24 07:40 O2 Flow Rate 2 11/13/24 03:55 Common normals: no apparent distress HENMT Common normals: normocephalic Eye Common normals: EOMs intact bilaterally Neck & C-Spine General: trachea midline Respiratory Common normals: normal respiratory effort Cardio Common normals: regular rate GI Palpation: soft; non-tender Bladder/kidney exam: CVA tenderness (right) Extremity Other: No calf tenderness to palpation bilaterally Neuro Common normals: oriented x3 Psych Common normals: mental status grossly normal Results Labs Labs: Short CBC 11/12/24 11/13/24 Range/Units 15:15 04:58 WBC 6.5 6.3 (4.0-11.0) 10^3/uL Hgb 14.5 13.7 L (14.0-18.0) g/dL Hct 41.1 L 40.1 L (42.0-54.0) % Plt Count 201 196 (150-450) 10^3/uL BMP 11/12/24 11/13/24 15:15 04:58 Sodium 144 144 Potassium 3.8 4.1 Chloride 108 H 108 H Carbon Dioxide 27.1 29.7 BUN 27.0 H 27.0 H Creatinine 1.44 H 1.35 H Glucose 154 H 102 Calcium 8.4 L 8.3 L Urine 11/12/24 Range/Units 15:10 Urine Color Yellow (YELLOW) Urine Clarity Clear (CLEAR) Urine pH 5.0 (5.0-9.0) Ur Specific [place] 1.025 (1.005-1.025) Urine Protein Negative (NEG/TRACE) mg/dL Urine Glucose (UA) Negative (NEGATIVE) mg/dL Imaging CT scan - abdomen: My impression: 11/02/2024 CT abdomen pelvis Images reviewed and report read. 1.2 cm right renal pelvic calculus. 7 mm right upper pole calculus. No hydronephrosis. Urology Assessment and Plan Assessment and Plan (1) Calculus of kidney: (2) CKD (chronic kidney disease): (3) Hypertension: Plan 59-year-old male with 1.2 cm right renal pelvic calculus and 7 mm right upper pole calculus, uncontrolled flank pain Plan: Management options discussed with patient. Elects for right ureteroscopy with laser lithotripsy and stent placement. He understands a staged procedure may be necessary if I am unable to reach the stone due to ureteral narrowing or due to significant stone burden. Additional risk discussed with patient include pain, bleeding, stent discomfort, urgency and frequency of urination, heart attack, and stroke. NPO diet. Patient request for strain of her left outside of possible.
--- NOTE | 2024-11-13 12:47 | PM.URSON ---
Urology Surgery Operative Note Operative Note Procedure Date: 11/13/24 Pre-op Diagnosis: Right renal calculi Post-op Diagnosis: same as pre-op Procedures performed: Cystoscopy, right ureteroscopy, laser lithotripsy, stent placement Anesthesia: General-LMA Primary Surgeon: Spenser Fernandez Complications: None Estimated blood loss (mL): 0 Findings: Right kidney stones fully dusted. Specimens: None Drains: Right 6 x 28 double-J uterus Indications for Procedures: Aldo Painting is a 59-year-old male who presented with uncontrolled right flank pain. He was found of a 1.2 cm right renal pelvic calculus and a 7 mm right upper pole stone. He now presents for right ureteroscopy to treat his right-sided stone burden. Detailed description of Procedure: Risks and benefits of the procedure were explained to the patient in the preoperative area and after informed consent was obtained the patient was taken back to the operating room. The patient was transferred to the operating table and placed in the supine position. General anesthesia was induced and the patient was administered intravenous ceftriaxone. He was placed in lithotomy position and prepped and draped in a sterile fashion. A timeout was performed to confirm patient identity and procedure. A 22 Portuguese cystoscope with a 30 degree lens was inserted through the patient's urethra and into the bladder. Upon entering the bladder, no gross abnormalities were seen. Attention was turned to the right ureteral orifice. A guidewire was advanced into the orifice up to the kidney under fluoroscopy. A second wire was also placed under fluoroscopy. A flexible ureteroscope was advanced over the guidewire and up to the renal pelvis where the large stone was encountered. Three additional stones were found in the kidney. Using a 365 ?m laser fiber, the smaller stones were fully dusted until they were not significantly larger than the laser fiber. Attention was then turned to the large pelvic calculus. Using the laser fiber, the stone was treated in a similar fashion. After extensive lasering, all stone fragments appeared easily passable and were not significantly larger than the laser fiber. The kidney was reevaluated and no large fragments remained. The ureteroscope was withdrawn down the ureter and no stones remained in the ureter. A 6 x 28 double-J ureteral stent was passed over the guidewire and up to the kidney under fluoroscopy. The guidewire was removed and good proximal and distal curls were seen on fluoroscopy. The bladder was drained through the cystoscope and the patient was awoken and transferred to PACU. Prior to transfer, the string which was left attached to the stent was adhered to the patient's penis using Mastisol and Steri-Strips. All instruments and equipment were accounted for at the end of the procedure. Disposition The patient was transferred to PACU in good condition. Follow-up: The patient may remove his stent in 1 week by pulling the string. He will then follow-up with Dr. Ag for continued care.
--- NOTE | 2024-11-13 13:00 | ECG_ITS ---
[facility] Test Date: 2024-11-13 Pat Name: SUKHDEEP SIMENTAL Department: Room: [facility] Gender: Male Dust Sampler: : 1965 Requested By: [id number] Order Number: [id number] Reading MD: GENESIS CAR M.D. Measurements Intervals [place] Rate: 122 P: -89 [place]: 198 QRS: -14 QRSD: 96 T: -69 QT: 317 QTc: 452 Interpretive Statements ATRIAL FIBRILLATION WITH RAPID VENTRICULAR RESPONSE NONSPECIFIC ST & T-WAVE ABNORMALITY ABNORMAL ECG Compared to ECG 11/13/2024 09:25:11 No significant changes Electronically Signed On 11-13-2024 20:04:31 EDT by GENESIS CAR M.D.
--- NOTE | 2024-11-13 13:16 | PC.NURSE ---
Heart rhythm varies between atrial tach/afib and will convert in and out of NSR. O2 continues at 3l/min via nc. Patient denies any shortness of breathe or chest pain.
--- NOTE | 2024-11-13 13:45 | CA_ITS ---
Patient Name: SUKHDEEP SIMENTAL MR#: [id number] : 1965 Exam Date: 11/13/2024 Ordering Doctor: KWABENA CARLTON ECHOCARDIOGRAM REPORT PROCEDURE: CA ECHO DOPPLER COMPLETE INDICATIONS: SVT COMPARISON: None. DESCRIPTION: COMPLETE ECHOCARDIOGRAM Real-time transthoracic echocardiography with 2D, M-mode, spectral and color flow Doppler performed. QUALITY: Technical quality was good. LEFT VENTRICLE: Normal chamber size. Mild concentric hypertrophy. Global left ventricular systolic function is normal. LV EF: Estimated left ventricular ejection fraction is 55-60%. DIASTOLIC: Normal diastolic function. ATRIAL SEPTUM: LEFT ATRIUM: Normal chamber size. RIGHT ATRIUM: Mild dilatation. RIGHT VENTRICLE: Mild dilatation. Normal right ventricular systolic function. TRICUSPID VALVE: Normal mobility and thickness. No stenosis with trivial regurgitation. Mild pulmonary hypertension. RVSP 35 mmHg. MITRAL VALVE: Normal mobility and thickness. No evidence of mitral valve stenosis. There is no mitral annular calcification. Trivial mitral regurgitation. AORTIC VALVE: Normal trileaflet appearance. No visible sclerosis. Normal leaflet mobility. No evidence of aortic valve stenosis. No aortic regurgitation. AORTIC ROOT: Mildly dilated, measuring 4.0 cm. The ascending aorta is mildly dilated and measures 3.7 cm. PULMONIC VALVE: Normal thickness and mobility. No stenosis. Trivial regurgitation. PERICARDIUM: Trivial pericardial effusion. IVC: Collapses with inspiration. Mildly dilated measuring 2.3 cm. PLEURA: CONCLUSION: 1. Mild concentric left ventricular hypertrophy with normal systolic function. LVEF is estimated at 55 to 60%. 2. Mildly dilated right ventricle with normal systolic function. 3. Normal diastolic function. 4. Mild right atrial dilatation. 5. No significant valvular dysfunction. 6. Mildly elevated right-sided pressures. 7. Mildly dilated ascending aorta. Adult Echocardiography Procedure Report Left Ventricle LVEDD (3.7 - 5.6 cm): 5.47 cm LVESD (2.2 - 4.0 cm): 3.40 cm LVIVS thickness (0.6 - 1.2 cm): 1.05 cm LVPW thickness (0.5 - 1.0 cm): 1.40 cm e': 0.10 m/s E - e': 6.93 LVOT Max Gradient: 5.77 mm[Hg] LVOT Area (cm2): 1.20 m/s Peak Velocity (LVOT): 1.20 m/s Mean Velocity (LVOT): 0.78 m/s LVOT Diameter 2.30 cm Left Ventricular Ejection Fraction: 55-60 % Left Atrium LA Volume Index (2D A2C): 28.93 ml/m2 Left Atrium Systolic Dimension: 3.96 cm Mitral Valve MV E to A Ratio: 0.80 Mitral Valve A-Wave Peak Velocity: 0.84 m/s Mitral Valve E-Wave Peak Velocity: 0.67 m/s Right Ventricle RV Internal Diastolic Dimension: 3.84 cm Aorta AO Root Diam: 3.96 cm Ascending Ao Diam: 3.70 cm Aortic Valve AoV Area (Peak Emmanuel): 2.87 cm2, 2.87 cm2 AoV Area (VTI): 3.15 cm2, 3.15 cm2 Peak Velocity(Antegrade Flow): 1.73 m/s Peak Gradient(Antegrade Flow): 11.95 mm[Hg] Mean Velocity(Antegrade Flow): 1.13 m/s Mean Gradient(Antegrade Flow): 5.61 mm[Hg] Velocity Time Integral: 32.01 cm Tricuspid Valve Peak Velocity (Regurgitant Flow): 2.59 m/s Pulmonic Valve Peak Velocity: 0.94 m/s Peak Gradient: 3.94 mm[Hg], 3.13 mm[Hg] Right Atrium Right Atrium Systolic Pressure: 98.63 ml, 98.63 ml Dictated by: Joe Cornelius M.D. on 11/13/2024 at 20:22 Approved by: Joe Cornelius M.D. on 11/13/2024 at 20:27
--- OUTSIDE RECORDS SUMMARY | 2024-11-13 13:50 | XMS_ITS | Encounter Summary ---
Author Organization [facility] tem Address [id number] [address] [place] [address] Care Team Providers Care Instrument/Control Technician Name Role Phone Derick Packer MD Primary Care Provider [phone] Encounter Details Date Type Department Care Team (Late st Contact Info) Description 02/20/2022 Telephone [facility] [address] [place] [id number] Cherelle Oleary RN Social History Tobacco Use [...] on filedocumented in this encounter Care Teams Instrument/Control Technician Relationship Specialty Start Date End Date Derick Packer MD PCP - General Family Medicine 10/08/18 documented as of this encounter
--- OUTSIDE RECORDS SUMMARY | 2024-11-13 13:50 | XMS_ITS | Clinical Summary ---
Author Organization [facility] Address [address] [place] [address] Care Team Providers Care Supervisor Home Energy Consultant Name Role Phone None, Provided MD Primary Care Provider Unavaila ble Allergies No known active allergies Medications bumetanide (Bumex) 1 mg tablet Take 1 tablet by mouth in the morning. Active doxazosin (Cardura) 4 mg tablet Take 4 mg by mouth in the morning. Active famotidine (Pepcid) 20 mg tablet in the morning. 11/08/19 22 Active ferrous sulfate 325 (65 Fe) MG tablet Take 1 tablet by mouth in the morning and 1 tablet in the evening. 11/08/19 22 Active irbesartan (Avapro) 300 mg tablet Take 1 tablet by mouth in the morning. Active pantoprazole (ProtoNix) 40 mg EC tablet Take 40 mg by mouth before breakfast. Active pioglitazone (Actos) 15 mg tablet Take 30 mg by mouth in the morning. Active simvastatin (Zocor) 10 mg tablet Take 10 mg by mouth at bedtime. 05/06/19 21 Active sucralfate (Carafate) 1 gram tablet Take 1 g by mouth in the morning, at noon, in the evening, and at bedtime. 08/19/19 22 Active testosterone cypionate (Depo-Testoste tila) 200 mg/mL injection testosterone cypionate 200 mg/mL intramuscular oil administer 3/4 mL INTRAMUSCULARLY EVERY 2 (TWO) weeks Activ e tizanidine HCl (ZANAFLEX ORAL) Take 4 mg [...] mouth in the morning and at bedtime. 01/17/20 Active traZODone (Desyrel) 150 mg tablet Take 150 mg by mouth at bedtime. 04/03/19 Active ketoconazole (NIZOral) 2 % cream 1 application. every 12 (twelve) hours. 06/13/19 Active doxycycline (Vibramycin) 100 mg capsule Take 100 mg by mouth in the morning and at bedtime. Take with at least 8 ounces (large glass) of water, do not lie down for 30 minutes after Active oxyCODONE-acet aminophen (Percocet) 10-325 mg tablet Take 1 tablet by mouth if needed for severe pain (8-10 pain score). Active Active Problems Problem Noted Date Diagnosed Date 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 03/07/2022 Overview (03/07/2022): Added automatically from request for surgery [id number] Chronic knee pain after tota l replacement [...] (12/01/2021): Added automatically from request for surgery [id number] Loose right total knee arthroplasty 12/01/2021 Overview (12/01/2021): Added automatically from request for surgery [id number] Quadriceps weakness 12/01/2021 Overview (12/01/2021): Added automatically from request for surgery [id number] Lumbosacral radiculopathy 12/01/2021 Overview (12/01/2021): Added automatically from request for surgery [id number] Acute renal failure 08/18/2021 Spinal stenosis, lumbar yohan on, with neurogenic claudication 08/17/2021 Overview (01/05/2022): Added automatically from request for surgery [id number] Pulmonary embolism with acute cor pulmonale 06/26 Recurrent pulmonary emboli 07/16/2021 S/P laparoscopic sleeve gastrectomy 05/24/2021 Degeneration of lumbosacral intervertebral disc 03/28/2021 Overview (01/05/2022): Added automatically from request for surgery [id number] Other specified inflammatory spondylopathies, candi mbar region 03/28/2021 Overview (01/05/2022): Added automatically from request for surgery [id number] Dyspnea and respiratory abnormality 01/25/2021 Tachycardia 01/25/2021 Edema 02/02/2020 Corneal edema, unspecified 12/10/2013 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 Family History Medical History Relation Name Comments Alcohol abuse Father Esophageal cancer Father Dementia Mother Relation Name Status Comments Father Mother Alive Social History Tobacco Use Types Packs/Day Years Used Date Smoking Tobacco: Never Smokeless Tobacco: Never Tobacco Cessation:Counseling Given: Not Answered Alcohol Use Standard Drinks/Week Comments Never 0 (1 standard drink = 0.6 oz pur e alcohol) [facility] Utilities Answer Date Recorded In the past 12 months has e [employer], gas, oil, or water [employer] threatened to shut off services in your [...] week 12/01/2021 How often do you attend chur or church services? Never 12/01/2021 Do you belong to any clubs o r organizations such as lutheran groups, unions, fraternal or athletic groups, or [...] Recorded Patient Health Questionnaire-2 Score 0 05/18/2024 [facility] - Occupational Stress [...] money to buy more. Never true 03/28/19 Ran Out of Food in the Last [...] place to sleep or slept in a retirement (including now)? No 03/28/2022 [place] Safety & Environment Answer Date Rec orded Fear of Current or Ex-Partner Not on file Emotionally Abused Not on file 04/18/2023 Physically Abused Not on file 04/18/2023 Sexually Abused Not on file 04/18/2023 Physically or Sexually Abused Not on file Comments Unknown Sex and Gender Information Value Date Recorded Sex Assigned at Choose not to disclose 3:06 PM EDT Legal Sex Male 11:50 PM EDT Gender Identity Male 06/17/2024 3:06 [...] 1965 FIT 1963 FOBT 1963 Sigmoidoscopy 1963 Diabetes: Retinopathy Screening 09/10/1973 Diabetes: Urine Protein Screening 09/10/1982 Pneumococcal Vaccine: Pediat rics (0 to 5 Years) and At-Risk Patients (6 to 64 Years) (1 of 2 - PCV) 09/10/1982 Pap Smear 09/10/1984 Adult Tetanus 09/10/1985 Cervical Cancer Screening 09/10/1993 HPV/Cotest 09/10/1993 Mammogram 2003 Zoster Vaccines (1 of 2) 09/10/2013 Diabetes: Hemoglobin A1C 03/03/2022 12/01/2021 COVID-19 Vaccine (2023-2 5 season) 2024 Influenza Vaccine (#1) 2024 Depression Screening 05/18/2025 05/18/2024 HIB Vaccines [...] this topic Medical Devices Implanted Type Area Interior Specialist Device Identifier Shelf Expiration Date Model / Serial / Lot Cement,Bone,R,1x 40us - [id number] Implanted:Qty: 4 on 12/27/2021 by Kaleb Helm MD at [facility] Bone Cement Right: Knee AZALIA 12/26/2023 [id number] / / [id number] Description:For third cement , only enclosed solution was used. MIXED WITH 6G VANCOMYCIN (LOT [id number], 06/2024; LOT [id number], 05/2024; LOT [id number], 05/2024) 4.8G TOBRAMYCIN (LOT [id number], 02/2023; LOT [id number], 02/2023) Fourth cement implanted without antibiotics. Cement,Bone,R,1x 40us - [id number] Implanted:Qty: 2 on 03/28/2022 by Kaleb Helm MD at [facility] Bone Cement Right: Knee AZALIA [id number] 05/25/2024 [id number] / / [id number] Remedy Tibial Insert Wedge Implanted:Qty: 1 on 12/27/2021 by Kaleb Helm MD at [facility] Right: Knee Other 04/24/2025 [employer] / / [id number] Description:RUG CLIPPER OST EOREMEDIES Remedy Stemmed Tibial Component Implanted:Qty: 1 on 12/27/2021 by Kaleb Helm MD at [facility] Right: Knee Other 05/25/2024 [facility] / / [id number] Description:RUG CLIPPER OST EOREMEDIES Remedy Stemmed Femoral Component Implanted:Qty: 1 on 12/27/2021 by Kaleb Helm MD at [facility] Right: Knee Other 04/24/[address] [facility] / [id number] Description:MANUFACTURED BY Netskope Remedy Stem Extension Component Implanted:Qty: 2 on 12/27/2021 by Kaleb Helm MD at [facility] Right: Knee Other 12/26/2023 [id number] / / [id number] Description:MANUFACTURED BY OSTEGustoEDBabytree Persona Revision Femoral Distal Augment Cemented Implanted:Qty: 1 on 03/28/2022 by Kaleb Helm MD at [facility] Right: Knee AZALIA [id number] 01/10/2032 42-5566-066 -10 / / [id number] Persona Revision Stem Extension Implanted:Qty: 1 on 03/28/2022 by Kaleb Helm MD at [facility] Right: Knee AZALIA [id number] 02/06/2030 42-5606-135 -14 / / [id number] Persona Revision Femoral Distal Augment Cemented Implanted:Qty: 1 on 03/28/2022 by Kaleb Helm MD at [facility] Right: Knee AZALIA [id number] 01/10/2032 42-5566-066 -10 / / [id number] Persona Revision Femur Cemented Implanted:Qty: 1 on 03/28/2022 by Kaleb Helm MD at [facility] Right: Knee AZALIA [id number] 09/28/2030 42-5046-066 -12 / / [id number] Persona Revision Tibial Augment Cemented Implanted:Qty: 1 on 03/28/2022 by Kaleb Helm MD at [facility] Right: Knee AAZLIA [id number] 06/24/2031 42-5558-052 -10 / / [id number] Persona Revision Vivacit-E Highly Crosslinked Polyethylene Articular Surface Implanted:Qty: 1 on 03/28/2022 by Kaleb Helm MD at [facility] Right: Knee AZALIA [id number] 07/03/2025 42-5228-007 -18 / / [id number] Persona Revision Tibial Augment Cemented Implanted:Qty: 1 on 03/28/2022 by Kaleb Helm MD at [facility] Right: Knee AZALIA [id number] 10/10/2031 42-5558-054 -10 / / [id number] Persona Revision Tibia Fixed Cemented Implanted:Qty: 1 on 03/28/2022 by Kaleb Helm MD at [facility] Right: Knee AZALIA [id number] 01/24/2032 42-5420-071 -02 / / [id number] Persona Revision Stem Extension Implanted:Qty: 1 on 03/28/2022 by Kaleb Helm MD at [facility] Right: Knee AZALIA [id number] 07/25/2029 42-5606-135 -11 / / [id number] Procedures Procedure Name Priority Date/Time Associated Diagnosis Comments HEMOGLOBIN A1C Routine 12/01/2021 12:11 PM EDT 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, initial encounter from Last 3 Months or Most Recently Relevant to Health Maintenance Results * Hemoglobin A1c (12/01/2021 12:11 PM EDT) Hemoglobin A1C 5.8 4.0 - 6.0 % 12/04/2021 12:01 PM EDT [facility] Estimated Average Glucose 119.76 mg/dL 12/04/2021 12:01 PM EDT [facility] Blood Venous blood specimen / Unknown Venipuncture / Unknown 12/01/2021 12:11 PM EDT 12/01/2021 12:11 PM EDT us Kaleb Helm MD LAB BLOOD ORDERABLES Final Res ult [facility] [address] [place] [id number] from Last 3 Months or Most Recently Relevant to Health Maintenance Insurance [facility] [address] [address] Advance Directives * Full Code (Latest Code Status on File) Date Activated Date Inactivated Comments 03/28/2022 2:09 PM 03/29/2022 7:53 PM * Full Code Date Activated Date Inactivated Comments 12/27/2021 12:14 PM 01/02/2022 3:46 PM Care Teams Supervisor Home Energy Consultant Relationship Specialty Start Date End Date None, Provided, PCP - General 09/04/22
--- OUTSIDE RECORDS SUMMARY | 2024-11-13 13:50 | XMS_ITS | Encounter Summary ---
Author Organization [facility] tem Address [id number] [address] [place] [address] Care Team Providers Care Material Checker Name Role Phone Derick Packer MD Primary Care Provider [phone] Encounter Details Date Type Department Care Team (Late st Contact Info) Description 05/09/2022 Telephone [facility] [address] [place] [id number] Cherelle Oleary RN Social History Tobacco Use [...] on filedocumented in this encounter Care Teams Material Checker Relationship Specialty Start Date End Date Derick Packer MD PCP - General Family Medicine 10/08/18 documented as of this encounter
--- OUTSIDE RECORDS SUMMARY | 2024-11-13 13:50 | XMS_ITS | Encounter Summary ---
Author Organization [facility] tem Address [facility] [id number] [address] [place] [address] Care Team Providers Care Sheet Heater Helper Name Role Phone Derick Packer MD Primary Care Provider [phone] Encounter Details Date Type Department Care Team (Late st Contact Info) Description 04/03/2022 Telephone [facility] [address] [place] [phone] Cherelle Oleary RN Social History Tobacco Use [...] call office in April 2022 to have [facility] forms completed as needed. documented in this encounter Plan of Treatment Not on file documented as of this encounter Visit Diagnoses Not on filedocumented in this encounter Care Teams Sheet Heater Helper Relationship Specialty Start Date End Date Derick Packer MD PCP - General Family Medicine 10/08/18 documented as of this encounter
--- OUTSIDE RECORDS SUMMARY | 2024-11-13 13:50 | XMS_ITS | Clinical Summary ---
Author Organization [facility] tem Address [id number] [address] [place] [address] Care Team Providers Care Laser Cutter Name Role Phone Derick Packer MD Primary Care Provider [phone] Allergies Active Allergy Reactions Criticality Noted Date [...] (08/17/2021): Added automatically from request for surgery [id number] Degeneration of lumbosacral intervertebral disc 03/28/2021 Overview (03/28/2021): Added automatically from request for surgery [id number] Other specified inflammatory spondylopathies, candi mbar region 03/28/2021 Overview (03/28/2021): Added automatically from request for surgery [id number] Family History Medical History Relation Name Comments [...] 02/13/2024 Medical Devices Not on file Insurance [facility] [employer] Care Teams Laser Cutter Relationship Specialty Start Date End Date Derick Packer MD PCP - General Family Medicine 10/08/18
--- OUTSIDE RECORDS SUMMARY | 2024-11-13 13:50 | XMS_ITS | Clinical Summary ---
Author Organization [facility] Address [address], [address] [place] [address] Care Team Providers Care Machine Operators Name Role Phone Derick Packer MD Primary Care Provider [phone] Allergies Active Allergy Reactions Criticality Noted Date [...] on file Medical Devices Implanted Type Area Research Intern Device Identifier Shelf Expiration Date Model / [...] 4:29 PM 05/26/2021 4:33 PM Care Teams Machine Operators Relationship Specialty Start Date End Date Derick Packer MD [address] [place] [address] PCP - General Family Medicine 04/11/19
--- OUTSIDE RECORDS SUMMARY | 2024-11-13 13:50 | XMS_ITS | Clinical Summary ---
Author Organization [facility] Address [address] [place] [address] Care Team Providers Care Stenotypist Name Role Phone Derick Packer MD Primary Care Provider [phone] Allergies Active Allergy Reactions Criticality Noted Date [...] PROSTATE CANCER SCREENING DISCUSSION 09/10/2018 COVID-19 VACCINE (1 - 2023-2 5 season) 2024 INFLUENZA VACCINE (#1) 2024 RSV VACCINE (1 - 1-dose 75+ series) 09/10/2038 HEP B VACCINE Aged Out No longer elig ible based on patient's age to complete this topic Insurance [employer] Care Teams Stenotypist Relationship Specialty Start Date End Date Derick Packer MD PCP - General Family Medicine 01/08/20
--- OUTSIDE RECORDS SUMMARY | 2024-11-13 13:50 | XMS_ITS | Clinical Summary ---
Author Organization [facility] Address [address] [place] [address] Care Team Providers Care C D Stripper Name Role Phone Unavailable Primary Care Provider [...]
--- OUTSIDE RECORDS SUMMARY | 2024-11-13 13:50 | XMS_ITS | Clinical Summary ---
Author Organization [facility] Address [address] [place] [address] Care Team Providers Care Dba Manager Name Role Phone Derick Packer MD Primary Care Provider [phone] Allergies No known active allergies Medications doxazosin [...] is lower risk 9 11/05/2022 Data from: [email or web address] Last address used for calculation [...] 01/24/2027 01/24/2022 Medical Devices Implanted Type Area Director Of Land Acquisition Device Identifier Shelf Expiration Date Model / Serial / Lot Vitoss Ba2x Bioactive Bone Graft Substitute 5.0cub Cm Implanted:Qty: 1 on 12/07/2022 at [facility] Implant N/A: Spine - Lumbar [place] 08/23/2023 [id number] / / [id number] Cage Tritanium 6d [id number] Spinal Sterile Latex Free Lumbar Posterior - [id number] Implanted:Qty: 1 on 12/07/2022 at [facility] Implant N/A: Spine - Lumbar [place] SPINE 08/11/2025 [id number] / / [id number] Cage Tritanium 6d [id number] Spinal Sterile Latex Free Lumbar Posterior - [id number] Implanted:Qty: 1 on 12/07/2022 at [facility] Implant N/A: Spine - Lumbar [place] SPINE 12/20/2026 [id number] / / [id number] Screw Darby 3 Titanium Set Merlyn Spine - [id number] Implanted:Qty: 10 on 12/07/2022 at [facility] Implant N/A: Spine - Lumbar [place] SPINE [id number] / / Screw Darby 3 Gloria 6.5mm 45mm Bone Polyaxial Nonsterile Spine - [id number] Implanted:Qty: 2 on 12/07/2022 at [facility] Screw N/A: Spine - Lumbar [place] SPINE [id number] / / Screw Darby 3 Gloria 6.5mm 50mm Bone Polyaxial Nonsterile Spine - [id number] Implanted:Qty: 2 on 12/07/2022 at [facility] Screw N/A: Spine - Lumbar [place] SPINE [id number] / / Procedures Procedure Name Priority Date/Time Associated Diagnosis Comments BASIC METABOLIC PANEL Routine 12/11/2022 4:50 AM EDT HEMOGLOBIN A1C Routine 11/21/2022 11:39 AM EDT Pre-op examination from Last 3 Months or Most Recently Relevant to Health Maintenance Results * (ABNORMAL) BASIC METABOLIC PNL (12/11/2022 4:50 AM EDT) [facility] Glucose 98 74 - 99 mg/dL 12/11/2022 6:30 AM EDT [facility] Comment: The [place] Diabetes Association (ADA) provides guidance for cutoff [...] Standards of Medical Care in Diabetes 2016, [place] Diabetes Association. Diabetes Care. 2016.39(Suppl 1). BUN 13 9 - 24 mg/dL 12/11/2022 6:30 AM EDT [facility] Creatinine 1.17 0.73 - 1.22 mg/dL 12/11/2022 6:30 AM EDT [facility] Sodium 143 136 - 144 mmol/L 12/11/2022 6:30 AM EDT [facility] Potassium 4.8 3.7 - 5.1 mmol/L 12/11/2022 6:30 AM EDT [facility] Chloride 106(H) 97 - 105 mmol/L 12/11/2022 6:30 AM EDT [facility] CO2 29 22 - 30 mmol/L 12/11/2022 6:30 AM EDT [facility] Anion Gap 8(L) 9 - 18 mmol/L 12/11/2022 6:30 AM EDT [facility] Calcium, Total 8.7 8.5 - 10.2 mg/dL 12/11/2022 6:30 AM EDT [facility] Estimated Glomerular Filtration Rate 72 >=60 mL/min/1. 73m 12/11/2022 6:30 AM EDT [facility] Comment:Estimated Glomerular Filtration Rate (eGFR) is [...] 12/11/2022 5:59 AM EDT us Alyssa Archual HOME THEATER INSTALLER.[facility] Final Res ult [facility] [address] [place] [address], * HGB A1C (11/21/2022 11:39 AM EDT) Hemoglobin A1C 5.5 4.3 - 5.6 % 11/22/2022 6:07 AM EDT [facility] Comment:[place] Diabetes As sociation guidelines indicate that patients with HgbA1c in the range 5.7-6.4% are at increased risk for development of diabetes, and intervention by lifestyle modification may be beneficial. HgbA1c greater or equal to 6.5% is considered diagnostic of diabetes. Estimated Average Glucose 111 mg/dL 11/22/2022 6:07 AM EDT [facility] Comment:eAG: (Estimated aver age glucose) is a calculated value from HgbA1c and is safety representative of the average blood glucose level in the last 2-3 month period. Blood BLOOD SPECIMEN / Unknown Venipuncture / Unknown 11/21/2022 11:39 AM EDT 11/21/2022 11:39 AM EDT us Brenton Anton HOME THEATER INSTALLER.TOWEL CABINET REPAIR[facility] Final Re sult [facility] [address] [place] [address], [place] from Last 3 Months or Most Recently Relevant to Health Maintenance [facility] [address] [id number] Care Teams Dba Manager Relationship Specialty Start Date End Date Derick Packer MD PCP - General Family Medicine 11/06/13
--- OUTSIDE RECORDS SUMMARY | 2024-11-13 13:55 | XMS_ITS | CCD ---
Author Organization [facility] CliniSynj Care Team Providers Care Bottom Polisher Name Role Phone Blayne Isabel Primary Care Provider SUZANNE ACEVEDO Attending Unavailable BLAYNE ISABEL Primary Care Unavailable ARSENIO BHATTI Referring Unavailable BLAYNE ISABEL Primary Care Unavailable ARSENIO BHATTI Referring Unavailable BLAYNE ISABEL Primary Care Unavailable ROSE SOTELO Attending Unavailable BLAYNE ISABEL Primary Care Unavailable BLAYNE ISABEL Consulting Unavailable Blayne Isabel Primary Care Provider [phone] Blayne Isabel Primary Care Provider Octavio Becker Attending Provider [phone] Blayne Isabel MD Primary Care Provider OCTAVIO [...] Oumou Weinstein Unavailable STEPH Lowry Attending Provider [phone] Estephanie Lowry Unavailable STEPH Lowry Attending Provider [phone] NO FAMILY, PHYSICIAN Primary Care Provider Unava [...] ., DR CISNEROS Primary Care Unavailable BREE, ALBERATSAM Consulting Unavailable HOY ., DR CISNEROS Attending [...] Unavailable Blayne Isabel MD Primary Care Provider [phone] [facility] Attending Unavailable QUINCY THOMAS Admitting [...] Unavailable Blayne Isabel MD Primary Care Provider [phone] PAYTON HELM Referring Unavailable PAYTON HELM Attending Unavailable PAYTON HELM Attending Unavailable Cecelia MURILLO Attending Unavailable MURILLOCecelia R Attending Unavailable MURILLO, Cecelia R Attending Unavailable MURILLO, Cecelia R Attending Unavailable Unavailable Unavailable Unavailable Allergies Allergy Classification Reported Allergen(s) Allergy Type Date of Onset Reaction(s) Facility (16 sources) Povidone-Iodine; Translations: [povidone iodine topical] Drug Allergy 9 [facility] (11 sources) Povidone-Iodine; Translations: [povidone-iodine] Drug Allergy 9 [facility] (9 sources) soap; Translations: [soap] Allergy to substance 9 [facility] (14 sources) Chlorhexidine; Translations: [CHLORHEXIDINE] Drug Allergy 1 [facility] (14 sources) Iodine; Translations: [IODINE] Drug Allergy 9 [facility] Work Phone: (15 sources) Loratadine; Translations: [loratadine] Drug Allergy 2 [facility] (1 source) Chlorhexidine Drug Allergy [facility] (1 source) Povidone-Iodine; Translations: [Betadine] Drug Allergy [facility] Repository Medications Current Medications Medication Drug Class(es) Dates Sig (Normalized) Sig (Original) acetaminophen 500 mg oral tablet (14 sources) Start: 01-02-2022 End: 01-10-2023 take 2 tablets by mouth every eight hours acetaminophen (TYLENOL EXTRA STRENGTH) 500 mg tablet TAKE TWO TABLETS BY MOUTH EVERY 8 HOURS 01/02/2022 Active Comment on above: Take 2 tablets by mo sdh every 8 hours. acetaminophen 325 mg / [...] carlos th every 4 hours as needed. [id number] 200 actuat albuterol 0.09 mg/actuat metered dose [...] Start: 01-05-2021 take 1 capsule by mo [facility] every week vitamin D (ERGOCALCIFEROL) 1.25 MG (10728 UT) CAPS capsule Indications: Vitamin D deficiency [...] on above: Take 1 capsule by mo [facility] twice daily. 2 ml ondansetron 2 [...] above: Take 1 tablet by [facility] every 3 hours as needed for [...] 07, 2023 12:00am take 1 capsule by [facility] once daily in the morning phentermine (ADIPEX-P) [...] Repeat number: 1 take 2 tablets by [facility] in the morning pioglitazone (ACTOS) 15 mg [...] Comment on above: Take 1 capsule by [facility] once daily. temazepam 15 mg oral capsule [...] Start: 08-21-2018 take 2 tablets by mo [facility] once daily tiZANidine (ZANAFLEX) 4 mg [...] on above: Use 1 Drop in [facility] once daily. 72 hr scopolamine 0.0139 [...] on above: Use 1 [facility]. traMADol hydrochloride [...] Episodic Other aftercare (1 source) Other [employer] continuous churn (current) drug therapy; Translations: [OTH [facility] CURRENT DRUG THERAPY] Onset: 2 Episodic Other [...] Cecelia MURILLO MD Where: [facility] [address] [place] [address]- You Need to Schedule the Following Appointments Follow Up with Cecelia MURILLO MD, URL When: Where: [facility] [place] [address]- Medications What How Much When Instructions Unchanged [...] (more content not included)... Normal [facility] Urology Office/Clinic Noteon 08-07-2024 Urology Office/Clinic Note Urology Office/Clinic Note Chief Complaint 18 month f/u with SÁNCHEZ and KUB HPI Staff 58 year old male patient here for follow up with KUB/SÁNCHEZ. KUB/SÁNCHEZ done 07/16/24 @ [facility]. Previous dx: renal mass, kidney stone, [...] acquired) Seen in consult on 06/29/21 at [facility]. 11/14/21 - BUN 19.0. Crea 1.62. [...] Information LIDIA JACOBS, Cecelia Jj, URL [address] [place] [address]- Additional Instructions: 1 year w/ KUB and [...] (more content not included)... Normal [facility] Comment on above: Result Comment: Elec tronically Signed By: Cecelia MURILLO MD\.br\Date and Time Signed: 08/07/24 12:00 EDT\.br\Electronically Co-Signed By: Jacqueline Calero\.br\Date and Time Co-Signed: 08/07/24 11:53 EDT\.br\Electronically Co-Signed By: Jacqueline Calero\.br\Date and Time Co-Signed: 08/07/24 11:56 EDT\.br\Electronically Co-Signed By: Jacqueline Calero\.br\Date and Time Co-Signed: 08/07/24 11:57 EDT [facility] Patient Letter [facility] June 22, 2024 [place] [address] : 1965 Dear Mr. Sukhdeep Simental, You [...] any future cancellations. Sincerely, [place] [address] ext.[phone] [facility] Follow-Upon 06-17-2024 Follow-Up [id number] Sukhdeep Simental F 1965 M Date Provider Department Center 06/17/2024 PAYTON GRIFFITH MP ORTHO MPORTHO Family History Problem Relation Age of Onset Dementia Mother Esophageal cancer Father Alcohol abuse Father Family Status - Relation Status Age at Mother Alive Father Level of Service:37374 [place] OFFICE/OUTPATIENT ESTABLISHED SF MDM 10 MIN [facility] 36on 05-18-2024 36 Will need to see the patient as soon as possible repeat x-rays and blood test to further evaluate as he has had previous infections and has high risk for recurrent infections and 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 PT WILL COME IN TODAY [facility] BASIC METABOLIC PANELon 03-2 Anion gap [Moles/Vol] 12 mmol/L Normal 7-20 [facility] Comment on above: Performed By: #### L [id number] #### [facility] ([employer]) [address] [place] [address] Calcium [Mass/Vol] 9.9 mg/dL Normal 8.6-10.3 [facility] Comment on above: Performed By: #### L [id number] #### [facility] ([employer]) [address] [place] [address] Chloride [Moles/Vol] 105 mmol/L Normal 98-107 [facility] Comment on above: Performed By: #### L [id number] #### [facility] ([facility]) [address] [place] [address] CO2 [Moles/Vol] 27 mmol/L Normal 21-31 [facility] Comment on above: Performed By: #### L [id number] #### [facility] ([facility]) [address] [place] [address] Creatinine [Mass/Vol] 1.42 mg/dL High 0.70-1.30 [facility] Comment on above: Performed By: #### L [id number] #### [facility] ([facility]) [address] [place] [address] GLOMERULAR FILTRATION RATE ML/MIN/1.73 SQ M.PREDICTED 56.6 mL/min/1.73m*2 Low >60.0 [facility] Comment on above: Result Comment: The [facility]???s estimated glomerular filtration rate (eGFR) [...] individuals. Performed By: #### L [id number] #### [facility] ([facility]) [address] [place] [address] Glucose [Mass/Vol] 102 mg/dL High 70-100 [facility] Comment on above: Performed By: #### L [id number] #### [facility] ([facility]) [address] [place] [address] Potassium [Moles/Vol] 4.4 mmol/L Normal 3.5-5.1 [facility] Comment on above: Performed By: #### L [id number] #### [facility] ([facility] [address] [address] Sodium [Moles/Vol] 140 mmol/L Normal 136-145 [facility] Comment on above: Performed By: #### L [id number] #### [facility] ([facility]) [address] [place] [address] Urea nitrogen [Mass/Vol] 23 mg/dL Normal 7-25 [facility] Comment on above: Performed By: #### L [id number] #### [facility] ([facility]) [address] [address] UREA NITROGEN/CREATININE (MASS RATIO) IN SER/PLAS 16.2 Normal [facility] Comment on above: Performed By: #### L [id number] #### [facility] ([facility]) [address] [place] [address] C-REACTIVE PROTEINon 025 C REACTIVE PROTEIN (MG/L) IN SER/PLAS <5.4 Normal <=5.0 [facility] Comment on above: Result Comment: Test ing performed using a new methodology, turbidimetry. Normal ranges have been updated. Old normal range was <8 mg/L. Performed By: #### L [id number] #### [facility] ([facility]) [address] [address] CBC WITH AUTO DIFFERENTIALon 05-18-2024 Basophils (Bld) [#/Vol] 0.06 10*3/uL Normal 0.00-0.20 [facility] Comment on above: Performed By: #### L [id number] #### [facility] ([facility] [address] [address] Basophils/100 WBC (Bld) 0.7 % Normal 0.0-1.0 [facility] Comment on above: Performed By: #### L [id number] #### [facility] [address] [place] [address] Eosinophils (Bld) [#/Vol] 0.15 10*3/uL Normal 0.00-0.50 [facility] Comment on above: Performed By: #### L [id number] #### [facility] ([facility] [address] [place] [address] Eosinophils/100 WBC (Bld) 1.8 % Normal 0.0-6.0 [facility] Comment on above: Performed By: #### L [id number] #### [facility] ([facility]) [address] [place] [address] Erythrocyte distribution width (RBC) [Ratio] 11.9 % Normal 11.5-15.0 [facility] Comment on above: Performed By: #### L [id number] #### [facility] ([facility]) [address] [place] [address] ERYTHROCYTE MEAN CORPUSCULAR HEMOGLOBIN CONCENTRATION (G/DL) BY AUTOMATED 34.5 g/dL Normal 32.0-35.0 [facility] Comment on above: Performed By: #### L [id number] #### [facility] ([facility]) [address] [place] [address] Hematocrit (Bld) [Volume fraction] 47.8 % Normal 39.0-50.0 [facility] Comment on above: Performed By: #### L [id number] #### [facility] [address] [place] [address] Hemoglobin (Bld) [Mass/Vol] 16.5 g/dL Normal 13.0-17.0 [facility] Comment on above: Performed By: #### L [id number] #### [facility] ([facility]) [address] [place] [address] Immature granulocytes (Bld) [#/Vol] 0.03 10*3/uL Normal 0.00-0.20 [facility] Comment on above: Performed By: #### L [id number] #### [facility] (BEAKER) [address] [place] [address] Immature granulocytes/100 WBC (Bld) 0.4 % Normal 0.0-1.0 [facility] Comment on above: Performed By: #### L [id number] #### [facility] ([facility]) [address] [place] [address] Lymphocytes (Bld) [#/Vol] 1.80 10*3/uL Normal 1.20-4.00 [facility] Comment on above: Performed By: #### L [id number] #### [facility] ([facility]) [address] [place] [address] Lymphocytes/100 WBC (Bld) 21.8 % Normal 20.0-45.0 [facility] Comment on above: Performed By: #### L [id number] #### [facility] ([facility]) [address] [place] [address] MCH (RBC) [Entitic mass] 31.5 pg Normal 27.0-33.0 [facility] Comment on above: Performed By: #### L [id number] #### [facility] ([facility]) [address] [place] [address] MCV (RBC) [Entitic vol] 91.4 fL Normal 82.0-98.0 [facility] Comment on above: Performed By: #### L [id number] #### [facility] ([facility]) [address] [place] [address] Monocytes (Bld) [#/Vol] 0.66 10*3/uL Normal 0.10-1.00 [facility] Comment on above: Performed By: #### L [id number] #### [facility] ([facility]) [address] [address] Monocytes/100 WBC (Bld) 8.0 % Normal 5.0-12.0 [facility] Comment on above: Performed By: #### L [id number] #### [facility] ([facility]) [address] [place] [address] Neutrophils (Bld) [#/Vol] 5.56 10*3/uL Normal 1.60-7.60 [facility] Comment on above: Performed By: #### L [id number] #### [facility] [address] [place] [address] Neutrophils/100 WBC (Bld) 67.3 % Normal 40.0-72.0 [facility] Comment on above: Performed By: #### L [id number] #### [facility] [address] [place] [address] NRBC (PER 100 WBCS) BY AUTOMATED COUNT 0.0 % Normal 0 [facility] Comment on above: Performed By: #### L [id number] #### [facility] ([facility]) [address] [place] [address] PLATELETS (10*3/UL) IN BLOOD AUTOMATED COUNT 247 10*3/uL Normal 150-400 [facility] Comment on above: Performed By: #### L [id number] #### [facility] ([facility]) [address] [place] [address] RBC (Bld) [#/Vol] 5.23 10*6/uL Normal 4.20-5.70 [facility] Comment on above: Performed By: #### L [id number] #### [facility] ([facility]) [address] [place] [address] WBC (Bld) [#/Vol] 8.26 10*3/uL Normal 4.00-10.60 [facility] Comment on above: Performed By: #### L [id number] #### [facility] ([facility]) [address] [place] [address] Follow-Upon 05-18-2024 Follow-Up [id number] Sukhdeep Simental 1965 M Date Provider Department Center 05/18/2024 PAYTON GRIFFITH MP ORTHO MPOKATHIA Family History Problem Relation Age of Onset Dementia Mother Esophageal cancer Father Alcohol abuse Father Family Status - Relation Status Age at Mother Alive Father Level of Service:07130 [place] OFFICE/OUTPATIENT ESTABLISHED MOD MDM 30 MIN () Reason for Visit and Comments: Pain [136] - Swelling starts 2 months ago, started swimming about a month ago and it only made his knee worse Edema [[id number]] - Swelling starts 2 months ago, started swimming about a month ago and it only made his knee worse Normal [facility] Labon 05-18-2024 Lab [id number] Sukhdeep Simental 1965 M Date Provider Department Center 05/18/2024 2244-[facility] LAB RESOURCE MP DRAW Medical Pavi Family History Problem Relation Age of Onset Dementia Mother Esophageal cancer Father Alcohol abuse Father Family Status - Relation Status Age at Mother Alive Father Normal [facility] SEDIMENTATION RATEon 025 SEDIMENTATION RATE, ERYTHROCYTE 5 mm/hr Normal <20 [facility] Comment on above: Performed By: #### L [id number] #### [facility] ([facility]) [address] [place] [address] 36on 05-15-2024 36 Patient feels like h is infection is back. Right knee swelling and pain but no fever. He was seen by Dr. Isabel and he put him on oral antibiotics and wanted Dr. Helm know in case he wants him to come in and be exam. Normal [facility] Erythrocyte distribution wid th Auto (RBC) [Ratio]on 10-29-2023 Erythrocyte distribution width (RBC) [Ratio] 11.5 % 11.0-15.0 [facility] Estimated glomerular filtrat ion rate (GFR) non- Americanon 10-29-2023 GFR/1.73 sq M.predicted among non-blacks MDRD (S/P/Bld) [Vol rate/Area] 51 mL/min/{1.73_m2} Low >=60 [facility] Hematocrit Auto (Bld) [Volum e fraction]on 10-29-2023 Hematocrit (Bld) [Volume fraction] 47.7 % 42.0-54.0 [facility] Hemoglobin [Mass/volume] in Bloodon 10-29-2023 Hemoglobin (Bld) [Mass/Vol] 16.8 g/dL 14.0-18.0 [facility] Laboratory - Chemistry and C hemistry - challengeon 10-29-2023 Albumin [Mass/Vol] 3.7 g/dL 3.4-5.0 [facility] Calcium [Mass/Vol] 9.0 mg/dL 8.5-10.1 [facility] Chloride [Moles/Vol] 103 mmol/L 98-107 [facility] CO2 [Moles/Vol] 26.8 mmol/L 21.0-32.0 [facility] Creatinine [Mass/Vol] 1.41 mg/dL High 0.70-1.30 [facility] GFR/1.73 sq M.predicted MDRD (S/P/Bld) [Vol rate/Area] mL/min/{1.73_m2} >=60 [facility] Glucose [Mass/Vol] 167 mg/dL High 74-106 [facility] Magnesium [Mass/Vol] 1.9 mg/dL 1.8-2.4 [facility] Potassium [Moles/Vol] 3.9 mmol/L 3.5-5.1 [facility] Sodium [Moles/Vol] 141 mmol/L 136-145 [facility] Urate [Mass/Vol] 7.9 mg/dL High 3.5-7.2 [facility] Urea nitrogen [Mass/Vol] 26.0 mg/dL High 7.0-18.0 [facility] Urea nitrogen/Creatinine [Mass ratio] 18.4 mg/mg [facility] Bilirubin Ql (U) Negative NEGATIVE [facility] Glucose (U) [Mass/Vol] Negative NEGATIVE [facility] Ketones Ql (U) Negative NEGATIVE [facility] pH (U) 6.0 [pH] 5.0-9.0 [facility] Specific gravity (U) [Rel density] 1.015 1.005-1.025 [facility] Urobilinogen Qn (U) 0.2 {Dahiana'U}/dL 0.2-1.0 [facility] Laboratory - Specimen inform ationon 10-29-2023 Appearance (U) CLEAR CLEAR [facility] Color (U) LT. YELLOW YELLOW [facility] Laboratory - Urinalysison Hyaline casts LM Ql (Urine sed) RARE [facility] Leukocyte esterase Test strip Ql (U) Negative NEGATIVE [facility] Mucus Ql (Urine sed) NONE SEEN NONE SEEN [facility] Nitrite Ql (U) Negative NEGATIVE [facility] Protein Ql (U) Negative NEG/TRACE [facility] Leukocytes [#/volume] correc romaine for nucleated erythrocytes in Blood by Automated counon 10-29-2023 WBC corrected for nucl RBC Auto (Bld) [#/Vol] 6.9 10 3/uL 4.0-11.0 [facility] MCH Auto (RBC) [Entitic mass ]on 10-29-2023 MCH (RBC) [Entitic mass] 32.2 pg 25.9-34.0 [facility] MCHC Auto (RBC) [Mass/Vol]on 10-29-2023 MCHC (RBC) [Mass/Vol] 35.2 g/dL 29.9-35.2 [facility] MCV Auto (RBC) [Entitic vol] on 10-29-2023 MCV (RBC) [Entitic vol] 91.6 fL 80.0-94.0 [facility] No Panel Informationon 10-28 25-Hydroxy Vitamin D Total 40.8 ng/mL [facility] Comment on above: <20 ng/mL Vit D defi cient20-<30 ng/mL Vit D [id number] ng/mL Vit D sufficient>100 ng/mL Potential Toxicity Parathyroid Hormone (Intact) 91 pg/mL Abnormal 15-65 [facility] Comment on above: Performed at: - [facility] [address] [id number] Director: Logan Martinez PhD, Phone: [phone] Phosphorus Level 2.3 mg/dL Low 2.6-4.7 [facility] Urine Bacteria NONE SEEN #/HPF NONE SEEN [facility] Urine Occult Blood Negative NEGATIVE [facility] Urine Other Casts SEEN #/LPF Abnormal NONE SEEN [facility] Urine Random Creatinine 15.18 mg/dL Low 20.00-300.00 [facility] Urine Random Total Protein <6.0 mg/dL <=11.9 [facility] Urine RBC NONE SEEN #/HPF 0-2 [facility] Urine Squamous Epithelial Cells FEW #/LPF Abnormal NONE/RARE [facility] Urine WBC NONE SEEN #/HPF NONE SEEN [facility] Platelet mean volume Auto (B ld) [Entitic vol]on 10-29-2023 Platelet mean volume (Bld) [Entitic vol] 8.9 fL Low 9.5-13.5 [facility] Platelets Auto (Bld) [#/Vol] on 10-29-2023 Platelets (Bld) [#/Vol] 236 10 3/uL 150-450 [facility] RBC Auto (Bld) [#/Vol]on RBC (Bld) [#/Vol] 5.21 10 6/uL 4.70-6.10 [facility] Serum or plasma anion gap de terminationon 10-29-2023 Anion gap [Moles/Vol] 15.1 mmol/L [facility] CNPNon 10-07-2023 CNPN Telephone (NEADFV) SUKHDEEP SIMENTAL ([id number]) 1965 M Date Time Provider Department 10/07/23 [facility] During your visit today, we recorded the [...] Encounter Status:Closed by ARIANNA MUHAMMAD [facility] CNPN Telephone ([place]) SUKHDEEP SIMENTAL ([id number]) 1965 M Date Time Provider Department 10/04/23 [facility] During your visit today, we recorded [...] Status:Closed by JUAN PABLO NOVA on 10/04/23 [facility] SUKHDEEP SIMENTAL ([id number]) 1965 M Date Time Provider Department 07/30/23 THOMAS MATHEW [employer] During your visit today, we recorded the following information about you: Arianna Little 07/30/2023 11:51 AM Signed Pt phoned regarding upcoming visit 10/06 [employer] appt. Pt unable to manage virtual visit asking for telephone visit. Pt asking how far in advance to do X-Ray. Pt will have X-Ray done locally at [facility]. Please call and advise Pt phone # [phone] Ekaterina Rondon 07/30/2023 1:07 PM Signed Have sent XR Lumbar order to [facility] fax # [phone] as requested from patient. Riddhi Goss APRN.[facility] 07/30/2023 3:25 PM Signed Called Sukhdeep, [...] Encounter Status:Closed by RIDDHI GOSS on 07/30/23 [facility] CNPN Telephone (NIQ) SUKHDEEP SIMENTAL ([id number]) 1965 M Date Time Provider Department 07/23/23 [facility]OMAS MATHEW During your visit today, we recorded the following information about you: Brenda Alex 07/23/2023 9:38 AM Signed Received request from [employer] needing more info, in [employer] for review. Juan Pablo Nova RN 07/23/2023 [...] Status:Closed by JUAN PABLO NOVA on 07/26/23 [facility] Center 04-16-2023 CNPN Telephone (NIQ) SUKHDEEP SIMENTAL ([id number]) 1965 M Date Time Provider Department 04/16/23 THOMAS MATHEW [facility] During your visit today, we recorded the following information about you: Moriah Ferguson 04/16/2023 1:27 PM Signed Received imaging disc by mail from [facility]. Disc contains CT Lumbar spine done on [...] Status:Closed by MORIAH FERGUSON on 06/06/23 [facility] [place] 04-10-2023 HARIKA Telephone (NIQ) SUKHDEEP SIMENTAL ([id number]) 1965 M Date Time Provider Department 04/10/23 [...] Status:Closed by JUAN PABLO NOVA on 04/18/23 [facility] [place] 04-09-2023 CNPN Telephone (NIQ) SUKHDEEP SIMENTAL ([id number]) 1965 M Date Time Provider Department 04/09/23 THOMAS MATHEW During your visit today, we recorded the following information about you: Brenda Alex 04/09/2023 10:[address] Lumbar Spine Report from [facility], in epic to review. Brittany Rubio PA-C [...] Encounter Status:Closed by ROBSON LAZO on 04/09/23 [facility] 02-11-2023 [facility] Telephone (NIQ) SUKHDEEP SIMENTAL ([id number]) 1965 M Date Time Provider Department 02/11/23 THOMAS MATHEW During your visit today, we recorded the following information about you: Moriah Ferguson 02/11/2023 1:36 PM Signed Received fax from [employer] requesting office notes, C-9, and [employer] 14. See fax scanned in patient's chart. Juan Pablo Nova RN 02/13/2023 3:14 PM Signed Information faxed to number requested. Faxed verification received. MariamVincent jiménezbrigido Rojo 03/06/2023 3:20 PM Signed Received updated notes from [facility] dated 03/05/23. Scanned into [employer]. Allergies As of Date: 02/11/2023 (No Known Allergies) Date Reviewed: 02/07/2023 Reviewed by: Brittany Ratliff - Fully Assessed Reason for Visit: [facility] (Worker's Comp) [4136] Prescriptions as of 03/07/2023 [...] Status:Closed by JUAN PABLO NOVA on 02/13/23 [facility] [place] 12-21-2022 OLGAN Telephone (NIQ) SUKHDEEP SIMENTAL ([id number]) 1965 M Date Time Provider Department 12/21/22 THOMAS MATHEW During your visit today, we recorded the following information about you: Moriah Ferguson 12/21/2022 9:29 AM Signed Patient called with complaints of [facility] not allowing him to case picker the pain medication that was sent [...] Encounter Status:Closed by XI SCHRADER on 12/21/22 [facility] 12-18-2022 CNPN Telephone (PODCCP) SUKHDEEP SIMENTAL ([id number]) 1965 M Date Time Provider Department 12/18/22 BLAYNE ISABEL PODCCP During your visit today, we recorded the following information about you: Amaury Carreon 12/18/2022 1:52 PM Signed PATIENT INFORMATION Record ID: [id number] Patient Name: [facility]: [employer] [place]: [facility] [place] Attending: Thomas Mathew Center: [facility] INSTRUCTIONS SN to remind patient of next upcoming appointment date, time, location SN TRANSFER TO [facility] SURVEY INFORMATION Medical/Nurse Beef Specialist: Amaury Calderón 1. Your discharge instructions [...] Reason for Visit: Follow Up Phone Call [0440] Cmt: All Clear Prescriptions as of 12/18/2022 [...] Encounter Status:Closed by AMAURY CARREON [facility] OLGA Telephone (NIQ) SUKHDEEP SIMENTAL ([id number]) 1965 M Date Time Provider Department 12/14/22 [...] via voice mail, as requested. Scanned into [employer]. Allergies As of Date: 12/14/2022 (No Known Allergies) Date Reviewed: 12/10/2022 Reviewed by: Yoli Guerin RN - Fully Assessed Reason for Visit: FMLA Paperwork [4180] Prescriptions as of 12/17/2022 - docusate sodium [...] Status:Closed by ABBY HERNANDEZ on 12/17/22 Normal [facility] Basic metabolic 2000 panelon 12-11-2022 Anion gap [Moles/Vol] 8 mmol/L Low 9-18 [facility] Comment on above: Order Comment: Speci men Type: BLOOD SPECIMEN Ordering Facility: [facility] Address: [address] [place] [address] Performed By: #### 2 4321-2 #### [facility] CLIA [id number] [address] [place] [address] [place] Calcium [Mass/Vol] 8.7 mg/dL Normal 8.5-10.2 [facility] Comment on above: Order Comment: Speci men Type: BLOOD SPECIMEN Ordering Facility: [facility] Address: [address] [place] [address] Performed By: #### 2 4321-2 #### [facility] CLIA [id number] [address] [place] [address] [place] Chloride [Moles/Vol] 106 mmol/L High 97-105 [facility] Comment on above: Order Comment: Speci men Type: BLOOD SPECIMEN Ordering Facility: [facility] Address: [address] [place] [address] Performed By: #### 2 4321-2 #### [facility] CLIA [id number] [address] [place] [address] [place] CO2 [Moles/Vol] 29 mmol/L Normal 22-30 [facility] Comment on above: Order Comment: Speci men Type: BLOOD SPECIMEN Ordering Facility: [facility] Address: [address] [place] [address] Performed By: #### 2 4321-2 #### [facility] CLIA [id number] [address] [place] [address] [place] Creatinine [Mass/Vol] 1.17 mg/dL Normal 0.73-1.22 [facility] Comment on above: Order Comment: Speci men Type: BLOOD SPECIMEN Ordering Facility: [facility] Address: [address] [place] [address] Performed By: #### 2 4321-2 #### [facility] CLIA [id number] [address] [place] [address] [place] Creatinine and Glomerular filtration rate.predicted panel (S/P/Bld) 72 mL/min/1.73m??? Normal >=60 [facility] Comment on above: Order Comment: Shahrzad dumont Type: BLOOD SPECIMEN Ordering Facility: [facility] Address: [address] [place] [address] Result Comment: Leah mated Glomerular Filtration Rate [...] GFR. Performed By: #### 2 4321-2 #### [facility] CLIA [id number] [address] [place] [address] [place] Glucose [Mass/Vol] 98 mg/dL Normal 74-99 [facility] Comment on above: Order Comment: Shahrzad dumont Type: BLOOD SPECIMEN Ordering Facility: [facility] Address: [address] [place] [address] Result Comment: The [place] Diabetes Association (ADA) provides guidance for cutoff [...] Standards of Medical Care in Diabetes 2016, [place] [employer]. Diabetes Care. 2016.39(Suppl 1). Performed By: #### 2 4321-2 #### [facility] CLIA [id number] [address] [place], [place] [address] [place] Potassium [Moles/Vol] 4.8 mmol/L Normal 3.7-5.1 [facility] Comment on above: Order Comment: Speci men Type: BLOOD SPECIMEN Ordering Facility: [facility] Address: [address] [place] [address] Performed By: #### 2 4321-2 #### [facility] CLIA [id number] [address] [place], [place] [address] [facility] Sodium [Moles/Vol] 143 mmol/L Normal 136-144 [facility] Comment on above: Order Comment: Speci men Type: BLOOD SPECIMEN Ordering Facility: [facility] Address: [address] [place] [address] Performed By: #### 2 4321-2 #### [facility] CLIA [id number] [address] [place], [place] [address] [place] [facility] Urea nitrogen [Mass/Vol] 13 mg/dL Normal 9-24 [facility] Comment on above: Order Comment: Speci men Type: BLOOD SPECIMEN Ordering Facility: [facility] Address: [address] [place] [address] Performed By: #### 2 4321-2 #### [facility] CLIA [id number] [address] [place], [place] [address] [facility] CASE MANAGEMon 12-11-2022 CASE MANAGEM HNO ID: [id number] Author: Gloria Toro RN Service: ? Author Type: Registered Nurse Type: Care Mgt Progress Note Filed: 12/11/2022 3:26 PM Note Text: CARE MANAGEMENT PROGRESS NOTE SERVICE DATE: 12/11/2022 SERVICE TIME: 3:26 pm LOS: 4 days No further skilled PT / OT needed at [facility]. SIGNATURE: Gloria Toro RN PATIENT NAME: Sukhdeep Simental DATE: December 11, 2022 TIME: 3:25 PM PAGER/CONTACT #: [phone] Normal [facility] CBC panel Auto (Bld)on 12-11 Erythrocyte distribution width (RBC) [Ratio] 12.5 % Normal 11.5-15.0 [facility] Comment on above: Order Comment: Speci men Type: BLOOD SPECIMEN Ordering Facility: [facility] Address: [address] [place] [address] Performed By: #### 5 8410-2 #### [facility] CLIA [id number] [address] [place] [address] [place] Hematocrit (Bld) [Volume fraction] 34.6 % Low 39.0-51.0 [facility] Comment on above: Order Comment: Speci men Type: BLOOD SPECIMEN Ordering Facility: [facility] Address: [address] [place] [address] Performed By: #### 5 8410-2 #### [facility] IA [id number] [address] [place] [address] [place] Hemoglobin (Bld) [Mass/Vol] 11.7 g/dL Low 13.0-17.0 [facility] Comment on above: Order Comment: Speci men Type: BLOOD SPECIMEN Ordering Facility: [facility] Address: [address] [place] [address] Performed By: #### 5 8410-2 #### [facility] IA [id number] [address] [place] [address] [place] MCH (RBC) [Entitic mass] 32.0 pg Normal 26.0-34.0 [facility] Comment on above: Order Comment: Speci men Type: BLOOD SPECIMEN Ordering Facility: [facility] Address: [address] [place] [address] Performed By: #### 5 8410-2 #### [facility] IA [id number] [address] [place] [address] [place] MCHC (RBC) [Mass/Vol] 33.8 g/dL Normal 30.5-36.0 [facility] Comment on above: Order Comment: Speci men Type: BLOOD SPECIMEN Ordering Facility: [facility] Address: [address] [place] [address] Performed By: #### 5 8410-2 #### [facility] IA [id number] [address] [place] [address] [place] MCV (RBC) [Entitic vol] 94.5 fL Normal 80.0-100.0 [facility] Comment on above: Order Comment: Speci men Type: BLOOD SPECIMEN Ordering Facility: [facility] Address: [address] [place] [address] Performed By: #### 5 8410-2 #### [facility] CLIA [id number] [address] [place], [place] [address] [place] Nucleated RBC (Bld) [#/Vol] 10*3/uL Normal <0.01 [facility] Comment on above: Order Comment: Speci men Type: BLOOD SPECIMEN Ordering Facility: [facility] Address: [address] [place] [address] Performed By: #### 5 8410-2 #### [facility] CLIA [id number] [address] [place] [address] [place] Platelet mean volume (Bld) [Entitic vol] 9.4 fL Normal 9.0-12.7 [facility] Comment on above: Order Comment: Speci men Type: BLOOD SPECIMEN Ordering Facility: [facility] Address: [address] [place] [address] Performed By: #### 5 8410-2 #### [facility] CLIA [id number] [address] [place] [address] [place] Platelets (Bld) [#/Vol] 196 10*3/uL Normal 150-400 [facility] Comment on above: Order Comment: Speci men Type: BLOOD SPECIMEN Ordering Facility: [facility] Address: [address] [place] [address] Performed By: #### 5 8410-2 #### [facility] CLIA [id number] [address] [place] [address] [place] RBC (Bld) [#/Vol] 3.66 10*6/uL Low 4.20-6.00 [facility] Comment on above: Order Comment: Speci men Type: BLOOD SPECIMEN Ordering Facility: [facility] Address: [address] [place] [address] Performed By: #### 5 8410-2 #### [facility] CLIA [id number] [address] [place] [address] [place] WBC (Bld) [#/Vol] 9.04 10*3/uL Normal 3.70-11.00 [facility] Comment on above: Order Comment: Shahrzad dumont Type: BLOOD SPECIMEN Ordering Facility: [facility] Address: [place] [address] Performed By: #### 5 8410-2 #### [facility] CLIA [id number] [facility] [address] OF [facility] CNDSon 12-11-2022 CNDS HNO ID: [id number] Author: Brittany Rubio PA-C Service: Neurosurgery Author Type: Physician Beef Specialist Type: Discharge Summary Filed: 12/11/2022 10:38 [...] you become constipated, you may use any kfnd-ncj-dnrhnjd treatment such as Milk of Magnesia, Sennakot, Prune Juice, Suppositories, etc. in addition to the stool softener/fiber supplement No alcohol or driving while on pain medication Use the dispensed medication (see prescription) You should use an idlj-jzc-rrhcwnc stool softener (Docusate sodium) and/or a fiber [...] call for appointment?: (more content not included)... [facility] CONSULTon 12-11-2022 CONSULT HNO ID: [id number] Author: Jaiden Rucker PA-C Service: Pain Management Author Type: Physician Beef Specialist Type: Consults Filed: 12/11/2022 8:09 AM [...] 8/10 Lack of pain control with iv phlebotomy coordinator fentanyl and dilaudid PERTINENT ROS: denies fever, [...] (fL) Date Saniya (more content not included)... [facility] NURSING PROGon 12-11-2022 NURSING PROG HNO ID: [id number] Author: Erlinda Bui, RN Service: Nursing Author [...] information. Patient verbalizing understanding of instructions. Normal [facility] Basic metabolic 2000 panelon 12-10-2022 Anion gap [Moles/Vol] 7 mmol/L Low -18 [facility] Comment on above: Order Comment: Speci men Type: BLOOD SPECIMEN Ordering Facility: [facility] Address: [address] [place] [address] Performed By: #### 2 4321-2 #### [facility] CLIA [id number] [address] [place] [address] [place] Calcium [Mass/Vol] 8.3 mg/dL Low 8.5-10.2 [facility] Comment on above: Order Comment: Speci men Type: BLOOD SPECIMEN Ordering Facility: [facility] Address: [address] [place] [address] Performed By: #### 2 4321-2 #### [facility] CLIA [id number] [address] [place] [address] [place] Chloride [Moles/Vol] 107 mmol/L High 97-105 [facility] Comment on above: Order Comment: Speci men Type: BLOOD SPECIMEN Ordering Facility: [facility] Address: [address] [place] [address] Performed By: #### 2 4321-2 #### [facility] CLIA [id number] [address] [place] [address] [place] CO2 [Moles/Vol] 26 mmol/L Normal 22-30 [facility] Comment on above: Order Comment: Speci men Type: BLOOD SPECIMEN Ordering Facility: [facility] Address: [address] [place] [address] Performed By: #### 2 4321-2 #### [facility] CLIA [id number] [address] [place] [address] [place] Creatinine [Mass/Vol] 1.16 mg/dL Normal 0.73-1.22 [facility] Comment on above: Order Comment: Shahrzad dumont Type: BLOOD SPECIMEN Ordering Facility: [facility] Address: [address] [place] [address] Performed By: #### 2 4321-2 #### [facility] CLIA [id number] [address] [place], [place] [address] [place] Creatinine and Glomerular filtration rate.predicted panel (S/P/Bld) 73 mL/min/1.73m??? Normal >=60 [facility] Comment on above: Order Comment: Toneyfrances dumont Type: BLOOD SPECIMEN Ordering Facility: [facility] Address: [address] [place] [address] Result Comment: Leah mated Glomerular Filtration Rate [...] GFR. Performed By: #### 2 4321-2 #### [facility] CLIA [id number] [address] [place], [place] [address] [place] Glucose [Mass/Vol] 129 mg/dL High 74-99 [facility] Comment on above: Order Comment: Shahrzad dumont Type: BLOOD SPECIMEN Ordering Facility: [facility] Address: [address] [place] [address] Result Comment: The [place] Diabetes Association (ADA) provides guidance for cutoff [...] Standards of Medical Care in Diabetes 2016, [place] [employer]. Diabetes Care. 2016.39(Suppl 1). Performed By: #### 2 4321-2 #### [facility] CLIA [id number] [address] [place] [address] [place] Potassium [Moles/Vol] 4.3 mmol/L Normal 3.7-5.1 [facility] Comment on above: Order Comment: Speci men Type: BLOOD SPECIMEN Ordering Facility: [facility] Address: [address] [place] [address] Performed By: #### 2 4321-2 #### [facility] CLIA [id number] [address] [place] [address] [place] Sodium [Moles/Vol] 140 mmol/L Normal 136-144 [facility] Comment on above: Order Comment: Speci men Type: BLOOD SPECIMEN Ordering Facility: [facility] Address: [address] [place] [address] Performed By: #### 2 4321-2 #### [facility] CLIA [id number] [address] [place] [address] [place] Urea nitrogen [Mass/Vol] 16 mg/dL Normal 9-24 [facility] Comment on above: Order Comment: Speci men Type: BLOOD SPECIMEN Ordering Facility: [facility] Address: [address] [place] [address] Performed By: #### 2 4321-2 #### [facility] IA [id number] [address] [place] [address] [place] CBC panel Auto (Bld)on 12-10 Erythrocyte distribution width (RBC) [Ratio] 12.6 % Normal 11.5-15.0 [facility] Comment on above: Order Comment: Speci men Type: BLOOD SPECIMEN Ordering Facility: [facility] Address: [address] [place] [address] Performed By: #### 5 8410-2 #### [facility] CLIA [id number] [address] [place] [address] [place] Hematocrit (Bld) [Volume fraction] 32.7 % Low 39.0-51.0 [facility] Comment on above: Order Comment: Speci men Type: BLOOD SPECIMEN Ordering Facility: [facility] Address: [address] [place] [address] Performed By: #### 5 8410-2 #### [facility] CLIA [id number] [address] [place] [address] [place] Hemoglobin (Bld) [Mass/Vol] 10.9 g/dL Low 13.0-17.0 [facility] Comment on above: Order Comment: Speci men Type: BLOOD SPECIMEN Ordering Facility: [facility] Address: [address] [place] [address] Performed By: #### 5 8410-2 #### [facility] IA [id number] [address] [place] [address] [place] MCH (RBC) [Entitic mass] 31.5 pg Normal 26.0-34.0 [facility] Comment on above: Order Comment: Speci men Type: BLOOD SPECIMEN Ordering Facility: [facility] Address: [address] [place] [address] Performed By: #### 5 8410-2 #### [facility] IA [id number] [address] [place] [address] [place] MCHC (RBC) [Mass/Vol] 33.3 g/dL Normal 30.5-36.0 [facility] Comment on above: Order Comment: Speci men Type: BLOOD SPECIMEN Ordering Facility: [facility] Address: [address] [place] [address] Performed By: #### 5 8410-2 #### [facility] IA [id number] [address] [place] [address] [place] MCV (RBC) [Entitic vol] 94.5 fL Normal 80.0-100.0 [facility] Comment on above: Order Comment: Speci men Type: BLOOD SPECIMEN Ordering Facility: [facility] Address: [address] [place] [address] Performed By: #### 5 8410-2 #### [facility] IA [id number] [address] [place] [address] [place] Nucleated RBC (Bld) [#/Vol] 10*3/uL Normal <0.01 [facility] Comment on above: Order Comment: Speci men Type: BLOOD SPECIMEN Ordering Facility: [facility] Address: [address] [place] [address] Performed By: #### 5 8410-2 #### [facility] CLIA [id number] [address] [place], [place] [address] [place] Platelet mean volume (Bld) [Entitic vol] 9.6 fL Normal 9.0-12.7 [facility] Comment on above: Order Comment: Speci men Type: BLOOD SPECIMEN Ordering Facility: [facility] Address: [address] [place] [address] Performed By: #### 5 8410-2 #### [facility] CLIA [id number] [address] [place] [address] [place] Platelets (Bld) [#/Vol] 157 10*3/uL Normal 150-400 [facility] Comment on above: Order Comment: Speci men Type: BLOOD SPECIMEN Ordering Facility: [facility] Address: [address] [place] [address] Performed By: #### 5 8410-2 #### [facility] IA [id number] [address] [place] [address] [place] RBC (Bld) [#/Vol] 3.46 10*6/uL Low 4.20-6.00 [facility] Comment on above: Order Comment: Speci men Type: BLOOD SPECIMEN Ordering Facility: [facility] Address: [address] [place] [address] Performed By: #### 5 8410-2 #### [facility] CLIA [id number] [address] [place] [address] [place] WBC (Bld) [#/Vol] 8.16 10*3/uL Normal 3.70-11.00 [facility] Comment on above: Order Comment: Speci men Type: BLOOD SPECIMEN Ordering Facility: [facility] Address: [address] [place] [address] Performed By: #### 5 8410-2 #### [facility] CLIA [id number] [address] [place] [address] [place] THERAPY NTon 12-10-2022 THERAPY NT HNO ID: [id number] Author: Odilon Madrid PT Service: Physical Therapy Author Type: Physical Therapist Type: Therapy (PT/OT/Speech/Resp) Filed: 12/10/2022 11:20 AM Note Text: PHYSICAL THERAPY MISSED VISIT SERVICE DATE: 12/10/2022 SERVICE TIME: 1109 to 1111 ROOM: [place] [address] Patient not seen due to Refused Treatment. Pt reported pain levels are too high to attempt therapy. Will f/u as schedule allows and pain improves. SIGNATURE: Odilon Madrid PT PATIENT NAME: Sukhdeep Simental DATE: December 10, 2022 TIME: 11:20 AM [facility] ALLIED HEALTHon 12-09-2022 ALLIED HEALTH HNO ID: [id number] Author: Akila Huitron RT(R) Service: Radiology Author [...] RT Jose(R) December 09, 2022 2:01 PM [facility] Basic metabolic 2000 panelon 12-09-2022 Anion gap [Moles/Vol] 6 mmol/L Low 11-12 [facility] Comment on above: Order Comment: Speci men Type: BLOOD SPECIMEN Ordering Facility: [facility] Address: [address] [place] [address] Performed By: #### 2 4321-2 #### [facility] CLIA [id number] [address] [place] [id number] [place] Calcium [Mass/Vol] 8.5 mg/dL Normal 8.5-10.2 [facility] Comment on above: Order Comment: Speci men Type: BLOOD SPECIMEN Ordering Facility: [facility] Address: [address] [place] [address] Performed By: #### 2 4321-2 #### [facility] CLIA [id number] [address] [place] [address] [place] Chloride [Moles/Vol] 106 mmol/L High 97-105 [facility] Comment on above: Order Comment: Speci men Type: BLOOD SPECIMEN Ordering Facility: [facility] Address: [address] [place] [address] Performed By: #### 2 4321-2 #### [facility] CLIA [id number] [address] [place] [address] [place] CO2 [Moles/Vol] 30 mmol/L Normal 22-30 [facility] Comment on above: Order Comment: Speci men Type: BLOOD SPECIMEN Ordering Facility: [facility] Address: [address] [place] [address] Performed By: #### 2 4321-2 #### [facility] IA [id number] [address] [place] [address] [place] Creatinine [Mass/Vol] 1.34 mg/dL High 0.73-1.22 [facility] Comment on above: Order Comment: Speci men Type: BLOOD SPECIMEN Ordering Facility: [facility] Address: [address] [place] [address] Performed By: #### 2 4321-2 #### [facility] CLIA [id number] [address] [place] [address] [place] Creatinine and Glomerular filtration rate.predicted panel (S/P/Bld) 61 mL/min/1.73m??? Normal >=60 [facility] Comment on above: Order Comment: Speci men Type: BLOOD SPECIMEN Ordering Facility: [facility] Address: [address] [place] [address] Result Comment: Leah mated Glomerular Filtration Rate [...] GFR. Performed By: #### 2 4321-2 #### [facility] CLIA [id number] [address] [place] [address] [place] Glucose [Mass/Vol] 105 mg/dL High 74-99 [facility] Comment on above: Order Comment: Shahrzad dumont Type: BLOOD SPECIMEN Ordering Facility: [facility] Address: [address] [place] [address] Result Comment: The [place] Diabetes Association (ADA) provides guidance for cutoff [...] Standards of Medical Care in Diabetes 2016, [place] [employer]. Diabetes Care. 2016.39(Suppl 1). Performed By: #### 2 4321-2 #### [facility] CLIA [id number] [address] [place], [place] [id number] [place] Potassium [Moles/Vol] 3.9 mmol/L Normal 3.7-5.1 [facility] Comment on above: Order Comment: Shahrzad dumont Type: BLOOD SPECIMEN Ordering Facility: [facility] Address: [place] [address] Performed By: #### 2 4321-2 #### [facility] CLIA [id number] [address] [place], [place] [address] [place] Sodium [Moles/Vol] 142 mmol/L Normal 136-144 [facility] Comment on above: Order Comment: Speci men Type: BLOOD SPECIMEN Ordering Facility: [facility] Address: [address] [place] [address] Performed By: #### 2 4321-2 #### [facility] CLIA [id number] [address] [place] [address] [place] Urea nitrogen [Mass/Vol] 18 mg/dL Normal 9-24 [facility] Comment on above: Order Comment: Speci men Type: BLOOD SPECIMEN Ordering Facility: [facility] Address: [address] [place] [address] Performed By: #### 2 4321-2 #### [facility] CLIA [id number] [address] [place] [address] [place] CBC panel Auto (Bld)on 12-09 Erythrocyte distribution width (RBC) [Ratio] 12.7 % Normal 11.5-15.0 [facility] Comment on above: Order Comment: Speci men Type: BLOOD SPECIMEN Ordering Facility: [facility] Address: [address] [place] [address] Performed By: #### 5 8410-2 #### [facility] CLIA [id number] [address] [place] [address] [place] Hematocrit (Bld) [Volume fraction] 34.1 % Low 39.0-51.0 [facility] Comment on above: Order Comment: Speci men Type: BLOOD SPECIMEN Ordering Facility: [facility] Address: [address] [place] [address] Performed By: #### 5 8410-2 #### [facility] CLIA [id number] [address] [place] [address] [place] Hemoglobin (Bld) [Mass/Vol] 11.6 g/dL Low 13.0-17.0 [facility] Comment on above: Order Comment: Speci men Type: BLOOD SPECIMEN Ordering Facility: [facility] Address: [address] [place] [address] Performed By: #### 5 8410-2 #### [facility] CLIA [id number] [address] [place] [address] [place] MCH (RBC) [Entitic mass] 32.3 pg Normal 26.0-34.0 [facility] Comment on above: Order Comment: Speci men Type: BLOOD SPECIMEN Ordering Facility: [facility] Address: [address] [place] [address] Performed By: #### 5 8410-2 #### [facility] CLIA [id number] [address] [place] [address] [place] MCHC (RBC) [Mass/Vol] 34.0 g/dL Normal 30.5-36.0 [facility] Comment on above: Order Comment: Speci men Type: BLOOD SPECIMEN Ordering Facility: [facility] Address: [address] [place] [address] Performed By: #### 5 8410-2 #### [facility] CLIA [id number] [address] [place] [address] [place] MCV (RBC) [Entitic vol] 95.0 fL Normal 80.0-100.0 [facility] Comment on above: Order Comment: Speci men Type: BLOOD SPECIMEN Ordering Facility: [facility] Address: [address] [place] [address] Performed By: #### 5 8410-2 #### [facility] IA [id number] [address] [place] [address] [place] Nucleated RBC (Bld) [#/Vol] 10*3/uL Normal <0.01 [facility] Comment on above: Order Comment: Speci men Type: BLOOD SPECIMEN Ordering Facility: [facility] Address: [address] [place] [address] Performed By: #### 5 8410-2 #### [facility] CLIA [id number] [address] [place] [address] [place] Platelet mean volume (Bld) [Entitic vol] 9.6 fL Normal 9.0-12.7 [facility] Comment on above: Order Comment: Speci men Type: BLOOD SPECIMEN Ordering Facility: [facility] Address: [address] [place] [address] Performed By: #### 5 8410-2 #### [facility] CLIA [id number] [address] [place], [place] [id number] [place] Platelets (Bld) [#/Vol] 159 10*3/uL Normal 150-400 [facility] Comment on above: Order Comment: Speci men Type: BLOOD SPECIMEN Ordering Facility: [facility] Address: [address] [place] [address] Performed By: #### 5 8410-2 #### [facility] CLIA [id number] [address] [place], [place] [address] [place] RBC (Bld) [#/Vol] 3.59 10*6/uL Low 4.20-6.00 [facility] Comment on above: Order Comment: Speci men Type: BLOOD SPECIMEN Ordering Facility: [facility] Address: [address] [place] [address] Performed By: #### 5 8410-2 #### [facility] IA [id number] [address] [place], [place] [address] [place] WBC (Bld) [#/Vol] 8.72 10*3/uL Normal 3.70-11.00 [facility] Comment on above: Order Comment: Speci men Type: BLOOD SPECIMEN Ordering Facility: [facility] Address: [address] [place] [address] Performed By: #### 5 8410-2 #### [facility] IA [id number] [address] [place], [place] [address] [facility] OF [place] NURSING PROGon 12-09-2022 NURSING PROG HNO ID: [id number] Author: Abdias Pemberton RN Service: Nursing Author Type: Registered Nurse Type: Nursing Progress Note Filed: 12/09/2022 7:21 PM Note Text: 12/09/2022 0826: hydromorphone LEAD INFORMATICA DEVELOPER rate varied. Patient rating pain 8/10 at this time stating oh, its much better than yesterday . 0931: Patient working with PT at this time 1035: Patient resting/sleeping comfortably in bed at this time. 1200: fentaNYL LEAD INFORMATICA DEVELOPER ordered. 1345: Patient ambulating in the hallway with nursing staff and . 1402: Patient at radiology for post-op XR 1406: Hydromorphone LEAD INFORMATICA DEVELOPER discontinued. While discontinuing the hydromorphone LEAD INFORMATICA DEVELOPER, patient made several comments about unused hydromorphone, I can take that medication off your hands. Patient educated that the medication will be properly wasted per protocol. 1407: fentaNYL LEAD INFORMATICA DEVELOPER started and Hydromorphone properly wasted per protocol. [...] Can't you increase my setting on the LEAD INFORMATICA DEVELOPER because I had better pain relief with the Dilaudid pump because I could press the button more frequent? Can you increase the pump settings? [facility] THERAPY NTon 12-09-2022 THERAPY NT HNO ID: [id number] Author: Abdias Crooks OT/L Service: Occupational Therapy Author Type: Occupational Therapist Type: Therapy (PT/OT/Speech/Resp) Filed: 12/09/2022 3:30 PM Note Text: Occupational Therapy Evaluation SERVICE DATE: 12/09/2022 SERVICE TIME: 1438 to 1502 ROOM: [place] [address] Total Joint Replacement Discharge Readiness: Cleared from [...] slower than expec (more content not included)... [facility] THERAPY NT HNO ID: [id number] Author: Hannah Mota PT, DPT Service: Physical Therapy Author Type: Physical Therapist Type: Therapy (PT/OT/Speech/Resp) Filed: 12/09/2022 10:06 AM Note Text: Physical Therapy Treatment SERVICE DATE: 12/09/2022 SERVICE TIME: 930 to 954 ROOM: [place] [address] Total Joint Replacement Discharge Readiness: Cleared from Physical Therapy Recommended Discharge Disposition: Home Anticipated Discharge Needs: Physical Assist at Home Physical Assist at Home for: Cleaning, Laundry, Meals, Stairs, Safety Recommended Discharge Equipment: No equipment needs anticipated PT 6 Clicks Score: 24 Pt agreeable to participate. Reports slight improvement in pain compared to yesterday but relies highly on LEAD INFORMATICA DEVELOPER. Pt able to ambulate around unit with [...] Difficulty walking-musculoskeleta l Interventions Provided: Therapeutic Activity (99437), Gait Training (12222) Therapeutic Activity (92020) Treatment Minutes: 10 $ Therapeutic Activity (63339) Billed Units: 1 unit Gait Training (49551) Treatment Minutes: 14 $ Gait Training (40035) Billed Units: 1 unit Training AND Education [...] for this therapy (more content not included)... [facility] XR LUMBAR 2V AP/LATon 2022 XR LUMBAR [...] IMPRESSION: Postoperative and degenerative changes as described. Mapping Technician: COURTNEY Transcribe Date/Time: Dec 09 2022 3:39P Dictated by : DONNY WOO DO This examination was interpreted and the report reviewed and electronically signed by: DONNY WOO DO on Dec 09 2022 3:42PM EST [id number] Normal [facility] Basic metabolic 2000 panelon 12-08-2022 Anion gap [Moles/Vol] 7 mmol/L Low 9-18 [facility] Comment on above: Order Comment: Speci men Type: BLOOD SPECIMEN Ordering Facility: [facility] Address: [address] [place] [address] Performed By: #### 2 4321-2 #### [facility] CLIA [id number] [address] [place] [address] [place] Calcium [Mass/Vol] 8.2 mg/dL Low 8.5-10.2 [facility] Comment on above: Order Comment: Speci men Type: BLOOD SPECIMEN Ordering Facility: [facility] Address: [address] [place] [address] Performed By: #### 2 4321-2 #### [facility] CLIA [id number] [address] [place] [address] [place] Chloride [Moles/Vol] 106 mmol/L High 97-105 [facility] Comment on above: Order Comment: Speci men Type: BLOOD SPECIMEN Ordering Facility: [facility] Address: [address] [place] [address] Performed By: #### 2 4321-2 #### [facility] CLIA [id number] [address] [place], [place] [address] [place] CO2 [Moles/Vol] 28 mmol/L Normal 22-30 [facility] Comment on above: Order Comment: Speci men Type: BLOOD SPECIMEN Ordering Facility: [facility] Address: [address] [place] [address] Performed By: #### 2 4321-2 #### [facility] CLIA [id number] [address] [place] [id number] [place] Creatinine [Mass/Vol] 1.35 mg/dL High 0.73-1.22 [facility] Comment on above: Order Comment: Shahrzad dumont Type: BLOOD SPECIMEN Ordering Facility: [facility] Address: [address] [place] [address] Performed By: #### 2 4321-2 #### [facility] CLIA [id number] [address] [place] [address] [place] Creatinine and Glomerular filtration rate.predicted panel (S/P/Bld) 60 mL/min/1.73m??? Normal >=60 [facility] Comment on above: Order Comment: Shahrzad dumont Type: BLOOD SPECIMEN Ordering Facility: [facility] Address: [address] [place] [address] Result Comment: Leah mated Glomerular Filtration Rate [...] GFR. Performed By: #### 2 4321-2 #### [facility] CLIA [id number] [address] [place], [place] [address] [place] Glucose [Mass/Vol] 139 mg/dL High 74-99 [facility] Comment on above: Order Comment: Shahrzad dumont Type: BLOOD SPECIMEN Ordering Facility: [facility] Address: [address] [place] [address] Result Comment: The [place] Diabetes Association (ADA) provides guidance for cutoff [...] Standards of Medical Care in Diabetes 2016, [place] [employer]. Diabetes Care. 2016.39(Suppl 1). Performed By: #### 2 4321-2 #### [facility] CLIA [id number] [address] [place] [address] [place] Potassium [Moles/Vol] 3.7 mmol/L Normal 3.7-5.1 [facility] Comment on above: Order Comment: Speci men Type: BLOOD SPECIMEN Ordering Facility: [facility] Address: [address] [place] [address] Performed By: #### 2 4321-2 #### [facility] CLIA [id number] [address] [place] [address] [place] Sodium [Moles/Vol] 141 mmol/L Normal 136-144 [facility] Comment on above: Order Comment: Speci men Type: BLOOD SPECIMEN Ordering Facility: [facility] Address: [address] [place] [address] Performed By: #### 2 4321-2 #### [facility] CLIA [id number] [address] [place] [address] [place] Urea nitrogen [Mass/Vol] 23 mg/dL Normal 9-24 [facility] Comment on above: Order Comment: Speci men Type: BLOOD SPECIMEN Ordering Facility: [facility] Address: [address] [place] [address] Performed By: #### 2 4321-2 #### [facility] CLIA [id number] [address] [place] [address] OF [place] CASE MGT INIT ASSESon 2022 CASE MGT INIT ASSES HNO ID: [id number] Author: Gloria Toro RN Service: ? Author Type: Registered Nurse Type: Care Mgt Initial Assessment Filed: 12/08/2022 8:48 AM Note Text: CARE MANAGEMENT: ASSESSMENT AND DISCHARGE PLAN SERVICE DATE: December 08, 2022 SERVICE TIME: 8:46 am PCP: Blayne Isabel MD Primary Contact: Extended Emergency Contact Information Primary Emergency Contact: Darryl Simental Address: [address] [place] [address] [place] Mobile Relation: Spouse [...] to go home, General wellness, Less pain [place] Explained: [place] Given: No Reason Not Given: No placements necessary Discharge Planning Participant(s): Patient Patient/Family Comments: Caregiver Assessment: Transport at Discharge: Needs Prior to Discharge: Needs Prior to Discharge: To Be Determined;OT/PT Evaluation Post-Acute Discharge Plan: CM met with patient at the bedside this a.m., has rollator, cane AND walker, says will be driving him home at [place] and can assist him as well, per eval, no further skilled PT / OT needed at [place]. CM Department will continue to follow until [place]. SIGNATURE: Gloria Toro RN PATIENT NAME: Sukhdeep Simental DATE: December 08, 2022 TIME: 8:46 AM CONTACT #: [phone] [facility] CBC panel Auto (Bld)on 12-08 Erythrocyte distribution width (RBC) [Ratio] 12.8 % Normal 11.5-15.0 [facility] Comment on above: Order Comment: Shahrzad dumont Type: BLOOD SPECIMEN Ordering Facility: [facility] Address: [address] [place] [address] Performed By: #### 5 8410-2 #### [facility] CLIA [id number] [address] [place] [address] [place] Hematocrit (Bld) [Volume fraction] 34.8 % Low 39.0-51.0 [facility] Comment on above: Order Comment: Shahrzad dumont Type: BLOOD SPECIMEN Ordering Facility: [facility] Address: [address] [place] [address] Performed By: #### 5 8410-2 #### [facility] IA [id number] [address] [place] [address] [place] Hemoglobin (Bld) [Mass/Vol] 11.7 g/dL Low 13.0-17.0 [facility] Comment on above: Order Comment: Speci men Type: BLOOD SPECIMEN Ordering Facility: [facility] Address: [address] [place] [address] Performed By: #### 5 8410-2 #### [facility] IA [id number] [address] [place] [address] [place] MCH (RBC) [Entitic mass] 31.8 pg Normal 26.0-34.0 [facility] Comment on above: Order Comment: Speci men Type: BLOOD SPECIMEN Ordering Facility: [facility] Address: [address] [place] [address] Performed By: #### 5 8410-2 #### [facility] IA [id number] [address] [place] [address] [place] MCHC (RBC) [Mass/Vol] 33.6 g/dL Normal 30.5-36.0 [facility] Comment on above: Order Comment: Speci men Type: BLOOD SPECIMEN Ordering Facility: [facility] Address: [address] [place] [address] Performed By: #### 5 8410-2 #### [facility] IA [id number] [address] [place] [address] [place] MCV (RBC) [Entitic vol] 94.6 fL Normal 80.0-100.0 [facility] Comment on above: Order Comment: Speci men Type: BLOOD SPECIMEN Ordering Facility: [facility] Address: [address] [place] [address] Performed By: #### 5 8410-2 #### [facility] IA [id number] [address] [place] [address] [place] Nucleated RBC (Bld) [#/Vol] 10*3/uL Normal <0.01 [facility] Comment on above: Order Comment: Speci men Type: BLOOD SPECIMEN Ordering Facility: [facility] Address: [address] [place] [address] Performed By: #### 5 8410-2 #### [facility] CLIA [id number] [address] [place] [address] [place] Platelet mean volume (Bld) [Entitic vol] 9.4 fL Normal 9.0-12.7 [facility] Comment on above: Order Comment: Speci men Type: BLOOD SPECIMEN Ordering Facility: [facility] Address: [address] [place] [address] Performed By: #### 5 8410-2 #### [facility] CLIA [id number] [address] [place] [address] [place] Platelets (Bld) [#/Vol] 162 10*3/uL Normal 150-400 [facility] Comment on above: Order Comment: Speci men Type: BLOOD SPECIMEN Ordering Facility: [facility] Address: [address] [place] [address] Performed By: #### 5 8410-2 #### [facility] CLIA [id number] [address] [place] [address] [place] RBC (Bld) [#/Vol] 3.68 10*6/uL Low 4.20-6.00 [facility] Comment on above: Order Comment: Speci men Type: BLOOD SPECIMEN Ordering Facility: [facility] Address: [address] [place] [address] Performed By: #### 5 8410-2 #### [facility] CLIA [id number] [address] [place] [address] [place] WBC (Bld) [#/Vol] 7.95 10*3/uL Normal 3.70-11.00 [facility] Comment on above: Order Comment: Speci men Type: BLOOD SPECIMEN Ordering Facility: [facility] Address: [address] [place] [address] Performed By: #### 5 8410-2 #### [facility] CLIA [id number] [address] [place] [address] [place] CONSULTon 12-08-2022 CONSULT HNO ID: [id number] Author: Lulu Oviedo MD Service: General Internal [...] Recent Labs 12/08 (more content not included)... [facility] NURSING PROGon 12-08-2022 NURSING PROG HNO ID: [id number] Author: Abdias Pemberton, RN Service: Nursing Author [...] notified of the patient's increased pain after LEAD INFORMATICA DEVELOPER was DC'ed earlier and transitioned to PO medications. Hydromorphone LEAD INFORMATICA DEVELOPER reordered per Dr. Mathew. 1729: Hydromorphone LEAD INFORMATICA DEVELOPER restarted. 1735: Patient assisted by nursing staff to bed and states that his pain has decreased. Patient resting comfortably in bed at this time. 1900: Patient resting comfortably in bed at this time. [facility] THERAPY NTon 12-08-2022 THERAPY NT HNO ID: [id number] Author: Taylor Montoya OTR/Kelly Service: Occupational Therapy Author Type: Occupational Therapist Type: Therapy (PT/OT/Speech/Resp) Filed: 12/08/2022 12:35 PM Note Text: OCCUPATIONAL THERAPY MISSED VISIT SERVICE DATE: 12/08/2022 SERVICE TIME: 1233 to 1233 ROOM: [place] [address] Patient not seen due to Refused Treatment. Patient having a significant amount of pain. Offered patient option of working with OT tomorrow. Pt would prefer OT evaluation tomorrow. SIGNATURE: URSULA Glynn/Kelly PATIENT NAME: Sukhdeep Simental DATE: December 08, 2022 TIME: 12:34 PM [facility] THERAPY NT HNO ID: [id number] Author: Jean-Pierre Lutz, PT, DPT Service: Physical Therapy Author Type: Physical Therapist Type: Therapy (PT/OT/Speech/Resp) Filed: 12/08/2022 8:44 AM Note Text: Physical Therapy Evaluation SERVICE DATE: 12/08/2022 SERVICE TIME: 807 to 830 ROOM: [place] [address] Cleared from Physical Therapy Recommended Discharge Disposition: [...] Weakness (generalized) Interventions Provided: Evaluation, Gait Training (38016) $ Evaluation-Low (93307) Billed Units: 1 unit Gait Training (93454) Treatment Minutes: 8 $ Gait Training (97635) Billed Units: 1 unit Training AND Education [...] DATE: December 08, 2022 TIME: 8:44 AM [facility] ANES POSTPROC EVALon 023 ANES POSTPROC EVAL HNO ID: [id number] Author: Ankit Orlando MD Service: Anesthesiology Author Type: Anesthesiologist Type: Anesthesia Postprocedure Evaluation Filed: 12/07/2022 3:37 PM Note Text: POST ANESTHESIA EVALUATION NOTE : 1965 Procedure Summary Date: 12/07/22 Room / Location: [place] [address] / OR Anesthesia Start: 737 Anesthesia Stop: [...] December 07, 2022 TIME: 3:37 PM CSN: [id number] [facility] ANES PRE-OPon 12-07-2022 ANES PRE-OP HNO ID: [id number] Author: Nasim Pruett I, MD Service: Anesthesiology [...] and consent discussed: yes. Patient / Responsible [employer] agrees to proceed: yes Patient / [...] December 07, 2022 TIME: 7:01 AM CSN: [id number] [facility] BRIEF OP NOTon 12-07-2022 BRIEF OP NOT HNO ID: [id number] Author: Thomas Mathew MD Service: Neurosurgery Author Type: Physician Type: Brief Op Note Filed: 12/07/2022 12:49 PM Note Text: BRIEF OPERATIVE / PROCEDURE NOTE LOG ID: [id number] SURGERY/PROCEDURE DATE: 12/07/2022 INCISION/PROCEDURE START TIME: 8:09 AM INCISION CLOSE/PROCEDURE END TIME: 12:34 PM SURGEON(S)/PROCEDURALI ST(S) AND CENTRAL SUPPLY CLERK(S): Surgeon(s) and Role: * Thomas Mathew MD [...] DATE: December 07, 2022 TIME: 12:31 PM [facility] NURSING PROGon 12-07-2022 NURSING PROG HNO ID: [id number] Author: Livia Calix RN Service: ? Author Type: Registered Nurse Type: Nursing Progress Note Filed: 12/07/2022 2:48 PM Note Text: Transfer Note: PATIENT NAME: Sukhdeep Simental Patient Location: [address]/[place] [address] Room: [place] [address] Patient transferred into room/unit 503-2 in stable condition. Patient educated on use of call light, fall precautions, and incentive spirometer. No futher actions taken at this time. Will continue to monitor and check with patient. [facility] OPERATIVE NOon 12-07-2022 OPERATIVE NO HNO ID: [id number] Author: Thomas Mathew MD Service: Neurosurgery Author Type: Physician Type: Operative Report Filed: 12/07/2022 3:54 PM Note Text: OPERATIVE/PROCEDURE REPORT LOG ID: [id number] SURGERY/PROCEDURE DATE: 12/07/2022 INCISION/PROCEDURE START TIME: 8:09 AM INCISION CLOSE/PROCEDURE END TIME: 12:34 PM SURGEON(S)/PROCEDURALI ST(S) AND CENTRAL SUPPLY CLERK(S): Surgeon(s) and Role: * Thomas Mathew MD [...] and sized at a 10 mm. The Yobongo system was the instrumentation system used. Local [...] was used to make a small pilot steam yacht hole. The gear shift along with pedicle [...] Implant Name Type Inv. Item Serial No. Marble Supervisor Lot No. LRB No. Used Action VITOSS [id number] BIOACTIVE BONE GRAFT SUBSTITUTE 5.0CUB CM Implant [place] [id number] N/A 1 Implanted CAGE TRITANIUM 6D [id number] SPINAL STERILE LATEX FREE LUMBAR POSTERIOR - [id number] Implant CAGE TRITANIUM 6D [id number] SPINAL STERILE LATEX FREE LUMBAR POSTERIOR [place] SPINE T9H8 N/A 1 Implanted CAGE TRITANIUM 6D [id number] SPINAL STERILE LATEX FREE LUMBAR POSTERIOR - [id number] Implant CAGE TRITANIUM 6D [id number] (more content not included)... [facility] XR LUMBAR 2V AP/LATon 2022 XR LUMBAR 2V AP/LAT * * *Final Report* * * DATE OF EXAM: Dec 07 2022 12:52PM DI [facility] - XR LUMBAR 2V AP/LAT [...] examination for surgical planning and documentation. . Mapping Technician: PSCB Transcribe Date/Time: Dec 07 2022 3:13P Dictated by : DONNY WOO DO This examination was interpreted and the report reviewed and electronically signed by: DONNY WOO DO on Dec 07 2022 3:15PM EST [id number] [facility] XR LUMBAR 2V AP/LAT * * *Final Report* * * DATE OF EXAM: Dec 07 2022 11:33AM [place] [address] - XR LUMBAR 2V AP/LAT / PROCEDURE [...] Intraoperative examination for surgical planning and documentation. Mapping Technician: COURTNEY Transcribe Date/Time: Dec 07 2022 2:43P Dictated by : DONNY WOO DO This examination was interpreted and the report reviewed and electronically signed by: DONNY WOO DO on Dec 07 2022 2:46PM EST [id number] [facility] XR LUMBAR 2V AP/LAT * * *Final [...] examination for surgical planning and documentation. . Mapping Technician: Onzo Transcribe Date/Time: Dec 07 2022 2:37P Dictated by : DONNY WOO DO This examination was interpreted and the report reviewed and electronically signed by: DONNY WOO DO on Dec 07 2022 2:40PM EST [id number] [facility] 11-29-2022 [facility] Telephone (NIQ) SUKHDEEP SIMENTAL ([id number]) 1965 M Date Time Provider Department 11/29/22 THOMAS MATHEW [facility] During your visit today, we recorded the following information about you: Moriah Ferguson 11/29/2022 9:50 AM Signed Patient called regarding a C/9 being filed for his Dec 07 surgery. He spoke to his [facility] contact and they said nothing has been filed yet. Please update patient. Juan Pablo Nova RN 11/29/2022 10:27 AM Signed C9 sent to provider for signature. Awaiting signature. Juan Pablo Nova RN 11/29/2022 12:20 PM Signed Signed C9 sent to [facility] and [facility]. Faxed verifications received. Kathe Lezama 12/05/2022 11:01 AM Signed Patient calling asking for an update on his C9 and surgery approval. He would like to know if nurse can reach out to [facility] [place] for an update and let him know. Juan Pablo Nova RN 12/05/2022 11:43 AM Signed Called Sunita and discussed patient's upcoming surgery. Per Sunita she did already explain to the patient that the information was submitted to the [employer] for review and does take up to 5 business days for a decision. Juan Pablo Nova RN 12/05/2022 1:16 PM Signed Spoke with patient. Informed case is still on for Saturday and that I spoke with Sunita. Patient appreciative of call. Ekaterina Rondon 12/06/2022 11:34 AM Addendum Sunita called from [facility], regarding patient surgery tomorrow. Surgery has been approved based on what it was shown on the medical record. Sunita wanted a called back # [phone] Ekaterina Rondon 12/06/2022 11:35 AM Signed Received [employer] workers compensation forms. Scan in patient chart [...] Date Reviewed: 11/21/2022 Reviewed by: Maite Galloway APRN.ROLL UP OPERATOR - Fully Assessed Reason for Visit: Bwc [...] by JUAN PABLO NOVA on 11/29/22 Normal [facility] CBC W Auto Differential pane l (Bld)on 11-21-2022 Basophils (Bld) [#/Vol] 0.04 10*3/uL Normal <0.11 [facility] Comment on above: Order Comment: Speci men Type: BLOOD SPECIMENOrdering Facility: [facility] Address: [address] [address] Performed By: #### 5 7021-8 ####[facility]IA [id number] [place] [address] [place] Basophils/100 WBC (Bld) 0.8 % Normal [facility] Comment on above: Order Comment: Speci men Type: BLOOD SPECIMENOrdering Facility: [facility] Address: [address] [address] Performed By: #### 5 7021-8 ####[facility] [id number] [place] Differential cell count method Nom (Bld) Auto Normal [facility] Comment on above: Order Comment: Speci men Type: BLOOD SPECIMENOrdering Facility: [facility] Address: [address] [place] [address] Performed By: #### 5 7021-8 ####[facility] LABCLIA [id number] [place] [address] [place] Eosinophils (Bld) [#/Vol] 0.11 10*3/uL Normal <0.46 [facility] Comment on above: Order Comment: Speci men Type: BLOOD SPECIMENOrdering Facility: [facility] Address: [address] [place] [address] Performed By: #### 5 7021-8 ####[facility] LABCLIA [id number] [address] [place] Eosinophils/100 WBC (Bld) 2.1 % Normal [facility] Comment on above: Order Comment: Speci men Type: BLOOD SPECIMENOrdering Facility: [facility] Address: [address] [place], [place] [id number] Performed By: #### 5 7021-8 ####[facility] LABCLIA [id number] [place] [address] [place] Erythrocyte distribution width (RBC) [Ratio] 12.4 % Normal 11.5-15.0 [facility] Comment on above: Order Comment: Speci men Type: BLOOD SPECIMENOrdering Facility: [facility] Address: [address] [place], [place] [id number] Performed By: #### 5 7021-8 ####[facility] LABCLIA [id number] [place] [address] [place] Hematocrit (Bld) [Volume fraction] 42.9 % Normal 39.0-51.0 [facility] Comment on above: Order Comment: Speci men Type: BLOOD SPECIMENOrdering Facility: [facility] Address: [address] Performed By: #### 5 7021-8 ####[facility]CL[facility] [id number] [place] [address] [place] Hemoglobin (Bld) [Mass/Vol] 14.5 g/dL Normal 13.0-17.0 [facility] Comment on above: Order Comment: Speci men Type: BLOOD SPECIMENOrdering Facility: [facility] Address: [address] [place], [place] [id number] Performed By: #### 5 7021-8 ####[facility] [id number] [place] [address] [place] Immature granulocytes (Bld) [#/Vol] 10*3/uL Normal <0.10 [facility] Comment on above: Order Comment: Speci men Type: BLOOD SPECIMENOrdering Facility: [facility] Address: [address] [place], [place] [id number] Performed By: #### 5 7021-8 ####[facility] [id number] [place] [address] [place] Immature granulocytes/100 WBC (Bld) 0.4 % Normal [facility] Comment on above: Order Comment: Speci men Type: BLOOD SPECIMENOrdering Facility: [facility] Address: [address] [place], [place] [id number] Performed By: #### 5 7021-8 ####[facility]CL[facility] [id number] [place] [address] [place] Lymphocytes (Bld) [#/Vol] 1.45 10*3/uL Normal 1.00-4.00 [facility] Comment on above: Order Comment: Speci men Type: BLOOD SPECIMENOrdering Facility: [facility] Address: [address] [place], [place] [address] Performed By: #### 5 7021-8 ####[facility]CL[facility] [id number] [address] [place] Lymphocytes/100 WBC (Bld) 27.4 % Normal [facility] Comment on above: Order Comment: Speci men Type: BLOOD SPECIMENOrdering Facility: [facility] Address: [address] [place] [address] Performed By: #### 5 7021-8 ####[facility] [id number] [address] MCH (RBC) [Entitic mass] 31.7 pg Normal 26.0-34.0 [facility] Comment on above: Order Comment: Speci men Type: BLOOD SPECIMENOrdering Facility: [facility] Address: [address] [place] [address] Performed By: #### 5 7021-8 ####[facility] [id number] [address] STATES [facility] MCHC (RBC) [Mass/Vol] 33.8 g/dL Normal 30.5-36.0 [facility] Comment on above: Order Comment: Speci men Type: BLOOD SPECIMENOrdering Facility: [facility] Address: [address] [place], [place] [id number] Performed By: #### 5 7021-8 ####[facility] [id number] [address] [place] MCV (RBC) [Entitic vol] 93.7 fL Normal 80.0-100.0 [facility] Comment on above: Order Comment: Speci men Type: BLOOD SPECIMENOrdering Facility: [facility] Address: [address] [place], [place] [id number] Performed By: #### 5 7021-8 ####[facility] [id number] [place] [address] [place] Monocytes (Bld) [#/Vol] 0.49 10*3/uL Normal <0.87 [facility] Comment on above: Order Comment: Speci men Type: BLOOD SPECIMENOrdering Facility: [facility] Address: [address] Performed By: #### 5 7021-8 ####[facility] [id number] [place] [address] [place] Monocytes/100 WBC (Bld) 9.2 % Normal [facility] Comment on above: Order Comment: Speci men Type: BLOOD SPECIMENOrdering Facility: [facility] Address: [address] Performed By: #### 5 7021-8 ####[facility] [id number] [place] [address] [place] Neutrophils (Bld) [#/Vol] 3.19 10*3/uL Normal 1.45-7.50 [facility] Comment on above: Order Comment: Speci men Type: BLOOD SPECIMENOrdering Facility: [facility] Address: [address] Performed By: #### 5 7021-8 ####[facility] [id number] [place] [address] [place] Neutrophils/100 WBC (Bld) 60.1 % Normal [facility] Comment on above: Order Comment: Speci men Type: BLOOD SPECIMENOrdering Facility: [facility] Address: [address] [place] [address] Performed By: #### 5 7021-8 ####[facility] [id number] [place] [address] [place] Nucleated RBC (Bld) [#/Vol] 10*3/uL Normal <0.01 [facility] Comment on above: Order Comment: Speci men Type: BLOOD SPECIMENOrdering Facility: [facility] Address: [address] [place] [address] Performed By: #### 5 7021-8 ####[facility] [id number] [place] [address] [place] Nucleated RBC/100 WBC (Bld) [Ratio] 0.0 /100 WBC Normal [facility] Comment on above: Order Comment: Speci men Type: BLOOD SPECIMENOrdering Facility: [facility] Address: [address] [place] [address] Performed By: #### 5 7021-8 ####[facility] [id number] [place] [address] [place] Platelet mean volume (Bld) [Entitic vol] 9.4 fL Normal 9.0-12.7 [facility] Comment on above: Order Comment: Speci men Type: BLOOD SPECIMENOrdering Facility: [facility] Address: [address] [place] [address] Performed By: #### 5 7021-8 ####[facility] [id number] [place] [address] [place] Platelets (Bld) [#/Vol] 222 10*3/uL Normal 150-400 [facility] Comment on above: Order Comment: Speci men Type: BLOOD SPECIMENOrdering Facility: [facility] Address: [address] [place] [address] Performed By: #### 5 7021-8 ####[facility] [id number] [place] [address] [place] RBC (Bld) [#/Vol] 4.58 10*6/uL Normal 4.20-6.00 [facility] Comment on above: Order Comment: Speci men Type: BLOOD SPECIMENOrdering Facility: [facility] Address: [address] [place] [address] Performed By: #### 5 7021-8 ####[facility] [id number] [place] [address] [place] WBC (Bld) [#/Vol] 5.30 10*3/uL Normal 3.70-11.00 [facility] Comment on above: Order Comment: Speci men Type: BLOOD SPECIMENOrdering Facility: [facility] Address: [address] [place] [address] Performed By: #### 5 7021-8 ####[facility] LABCLIA [id number] [address] STATES OF [facility] CONFIRM BLOOD TYPEon 023 ABO A Normal [facility] Comment on above: Order Comment: Speci men Type: BLOOD SPECIMENOrdering Facility: [facility] Address: [address] [place] [address] Performed By: #### C ONABO ####[facility] BLOOD BANKCLIA [id number] [place] [address] [place] Rh Nom (Bld) Negative Normal [facility] Comment on above: Order Comment: Speci men Type: BLOOD SPECIMENOrdering Facility: [facility] Address: [address] [place] [address] Performed By: #### C ONABO ####[facility] BLOOD BANKCLIA [id number] [place] [address] [place] Comprehensive metabolic 2000 panelon 11-21-2022 Albumin [Mass/Vol] 4.3 g/dL Normal 3.9-4.9 [facility] Comment on above: Order Comment: Speci men Type: BLOOD SPECIMENOrdering Facility: [facility] Address: [address] [place] [address] Performed By: #### 2 4323-8 ####[facility]CL[facility] [id number] [place] [address] [place] ALP [Catalytic activity/Vol] 68 U/L Normal 38-113 [facility] Comment on above: Order Comment: Speci men Type: BLOOD SPECIMENOrdering Facility: [facility] Address: [address] [place] [address] Performed By: #### 2 4323-8 ####[facility]CL[facility] [id number] [address] [place] ALT [Catalytic activity/Vol] 16 U/L Normal 10-54 [facility] Comment on above: Order Comment: Speci men Type: BLOOD SPECIMENOrdering Facility: [facility] Address: [address] [place] [address] Performed By: #### 2 4323-8 ####[facility]CL[facility] [id number] [place] [address] [place] Anion gap [Moles/Vol] 10 mmol/L Normal 9-18 [facility] Comment on above: Order Comment: Speci men Type: BLOOD SPECIMENOrdering Facility: [facility] Address: [address] [place] [address] Performed By: #### 2 4323-8 ####[facility] [id number] [place] [address] [place] AST [Catalytic activity/Vol] 21 U/L Normal 14-40 [facility] Comment on above: Order Comment: Speci men Type: BLOOD SPECIMENOrdering Facility: [facility] Address: [address] [place] [address] Performed By: #### 2 4323-8 ####[facility]CL[facility] [id number] [place] [address] [place] Bilirubin [Mass/Vol] 0.5 mg/dL Normal 0.2-1.3 [facility] Comment on above: Order Comment: Speci men Type: BLOOD SPECIMENOrdering Facility: [facility] Address: [address] [place] [address] Performed By: #### 2 4323-8 ####[facility]CL[facility] [id number] [place] [address] [place] Calcium [Mass/Vol] 9.9 mg/dL Normal 8.5-10.2 [facility] Comment on above: Order Comment: Speci men Type: BLOOD SPECIMENOrdering Facility: [facility] Address: [address] Performed By: #### 2 4323-8 ####[facility]CL[facility] [id number] [place] [address] [place] Chloride [Moles/Vol] 106 mmol/L High 97-105 [facility] Comment on above: Order Comment: Speci men Type: BLOOD SPECIMENOrdering Facility: [facility] Address: [address] [place] [address] Performed By: #### 2 4323-8 ####[facility] [id number] [place] [address] [place] CO2 [Moles/Vol] 27 mmol/L Normal 22-30 [facility] Comment on above: Order Comment: Speci men Type: BLOOD SPECIMENOrdering Facility: [facility] Address: [address] [place], [place] [id number] Performed By: #### 2 4323-8 ####[facility] [id number] [place] [address] [place] Creatinine [Mass/Vol] 1.22 mg/dL Normal 0.73-1.22 [facility] Comment on above: Order Comment: Speci men Type: BLOOD SPECIMENOrdering Facility: [facility] Address: [address] Performed By: #### 2 4323-8 ####[facility] [id number] [place] [address] [place] Creatinine and Glomerular filtration rate.predicted panel (S/P/Bld) 68 mL/min/1.73m??? Normal >=60 [facility] Comment on above: Order Comment: Speci men Type: BLOOD SPECIMENOrdering Facility: [facility] Address: [address] [id number] Result Comment: Leah mated Glomerular Filtration Rate [...] actual GFR. Performed By: #### 2 4323-8 ####[facility] [id number] [place] [address] [place] Glucose [Mass/Vol] 111 mg/dL High 74-99 [facility] Comment on above: Order Comment: Shahrzad dumont Type: BLOOD SPECIMENOrdering Facility: [facility] Address: [address] [address] Result Comment: The [place] Diabetes Association (ADA) provides guidance for cutoff [...] Standards of Medical Care in Diabetes 2016, [place] Diabetes Association. Diabetes Care. 2016.39(Suppl 1). Performed By: #### 2 4323-8 ####[facility] [id number] [place] [address] [place] Potassium [Moles/Vol] 4.2 mmol/L Normal 3.7-5.1 [facility] Comment on above: Order Comment: Shahrzad dumont Type: BLOOD SPECIMENOrdering Facility: [facility] Address: [address] [address] Performed By: #### 2 4323-8 ####[facility] [id number] [place] [address] [place] Protein [Mass/Vol] 7.0 g/dL Normal 6.3-8.0 [facility] Comment on above: Order Comment: Speci men Type: BLOOD SPECIMENOrdering Facility: [facility] Address: [address] [place] [address] Performed By: #### 2 4323-8 ####[facility] [id number] [place] [address] [place] Sodium [Moles/Vol] 143 mmol/L Normal 136-144 [facility] Comment on above: Order Comment: Speci men Type: BLOOD SPECIMENOrdering Facility: [facility] Address: [address] [place] [address] Performed By: #### 2 4323-8 ####[facility] [id number] [address] STATES OF [facility] Urea nitrogen [Mass/Vol] 22 mg/dL Normal 9-24 [facility] Comment on above: Order Comment: Speci men Type: BLOOD SPECIMENOrdering Facility: [facility] Address: [address] [place] [address] Performed By: #### 2 4323-8 ####[facility] [id number] [address] [place] [id number] 11-21-2022 ECG01 Ventricular Rate : 6 5 BPM Atrial Rate : 65 BPM P-R Interval : 180 ms QRS Duration : 98 ms Q-T Interval : 440 ms QTC Calculation(Bazett) : 457 ms Calculated P Maddock : 0 degrees Calculated R Maddock : -10 degrees Calculated T Maddock : 49 degrees NORMAL SINUS RHYTHM NORMAL ECG Confirmed by SHANIA RESTREPO M.D. ([id number]) on 11/22/2022 12:00:34 PM NAME : SUKHDEEP SIMENTAL PID : [id number] : 1965 Gender : Male Race : ORD : Procedure Date : Nov 21 2022 10:59:49 Edit Date : Nov 22 2022 12:00:38 Diagnosis: NORMAL SINUS RHYTHM NORMAL ECG Confirmed by SHANIA RESTREPO M.D. ([id number]) on 11/22/2022 12:00:34 PM Test Reason : SURGERY Location : 545 : [facility] Overread By : SHANIA RESTREPO M.D. Edited By : SHANIA RESTREPO M.D. Referred By : THOMAS MATHEW Acquired by : Santiago DANIELLE [facility] HISTORY PHYSICALon HISTORY PHYSICAL HNO ID: [id number] Author: Maite Galloway APRN.ROLL UP OPERATOR Service: ? Author Type: Nurse Practitioner Type: [...] pain. Skin: (more content not included)... Normal [facility] HbA1c (Bld)on 11-21-2022 Average glucose Estimated from glycated hemoglobin (Bld) [Mass/Vol] 111 mg/dL Normal [facility] Comment on above: Order Comment: Shahrzad dumont Type: BLOOD SPECIMENOrdering Facility: [facility] Address: [address] [address] Result Comment: eAG: (Estimated average glucose) is a calculated value from HgbA1c and is communications representative of the average blood glucose level in the last 2-3 month period. Performed By: #### 5 5454-3 ####[facility] [id number] [place] [address] [place] HbA1c (Bld) [Mass fraction] 5.5 % Normal 4.3-5.6 [facility] Comment on above: Order Comment: Shahrzad dumont Type: BLOOD SPECIMENOrdering Facility: [facility] Address: [address] [address] Result Comment: [place] Diabetes Association guidelines indicate that patients with HgbA1c in the range 5.7-6.4% are at increased risk for development of diabetes, and intervention by lifestyle modification may be beneficial. HgbA1c greater or equal to 6.5% is considered diagnostic of diabetes. Performed By: #### 5 5454-3 ####[facility] [id number] [address] OF [place] TYPE AND SCREEN,30 DAYon ABO A Normal [facility] Comment on above: Order Comment: Speci men Type: BLOOD SPECIMENOrdering Facility: [facility] Address: [address] [place] [address] Performed By: #### T SCR30 ####[facility] BLOOD BANKCLIA [id number] [address] HISTORICAL AB SCR STATUS Negative Normal [facility] Comment on above: Order Comment: Speci men Type: BLOOD SPECIMENOrdering Facility: [facility] Address: [address] [place] [address] Performed By: #### T SCR30 ####[facility] BLOOD BANKCLIA [id number] [address] Rh Nom (Bld) Negative Normal [facility] Comment on above: Order Comment: Speci men Type: BLOOD SPECIMENOrdering Facility: [facility] Address: [address] [place] [address] Performed By: #### T SCR30 ####[facility] BLOOD BANKCLIA [id number] [address] ABD/PELVIS WO CONon 07-06 CT [...] by: OBIE TSE Date: 2022-07-06 13:19 Normal [facility] PTH INTACTon 06-12-2022 PTH, Intact 38 pg/mL Normal 15-65 [facility] Comment on above: Performed By: #### P T #### [facility] [address] [place] [address] Dr. Hugh Landis FERRITINon 06-11-2022 Ferritin [Mass/Vol] 96.0 ng/mL Normal 26.0-388.0 [facility] Comment on above: Performed By: #### P T #### [facility] [address] [place] [address] Dr. Hugh Landis HEMOGRAM AND PLATELon 2022 Hematocrit (Bld) [Volume fraction] 39.1 % Critically low 42.0-54.0 [facility] Comment on above: Performed By: #### H H #### [facility] [address] [place] [address] Dr. Hugh Landis Hemoglobin (Bld) [Mass/Vol] 13.3 g/dL Critically low 14.0-18.0 [facility] Comment on above: Performed By: #### H H #### [facility] [address] [place] [address] Dr. Hugh Landis MCH (RBC) [Entitic mass] 30.5 pg Normal 25.9-34.0 [facility] Comment on above: Performed By: #### H H #### [facility] [address] [place] [address] Dr. Hugh Landis MCHC (RBC) [Mass/Vol] 34.0 g/dL Normal 29.9-35.2 [facility] Comment on above: Performed By: #### H H #### [facility] [address] [place] [address] Dr. Hugh Landis MCV (RBC) [Entitic vol] 89.7 fL Normal 80.0-94.0 [facility] Comment on above: Performed By: #### H H #### [facility] [address] [place] [address] Dr. Hugh Landis PLT 230 103/ul Normal 150-450 [facility] Comment on above: Performed By: #### H H #### [facility] [address] [address] [address] Hugh Landis RBC 4.36 106/ul Critically low 4.70-6.10 [facility] Comment on above: Performed By: #### H H #### [facility] [address] [address] [address] Hugh Landis WBC 4.8 103/ul Normal 4.0-11.0 [facility] Comment on above: Performed By: #### H H #### [facility] [address] [place] [address] Dr. Hugh Landis IRON AND TIBCon 06-11-2022 % SATURATION 55.0 % Normal [facility] Comment on above: Performed By: #### P T #### [facility] [address] [place] [address] Dr. Hugh Landis Iron [Mass/Vol] 137.0 ug/dL Normal 65.0-175.0 [facility] Comment on above: Performed By: #### P T #### [facility] [address] [place] [address] Dr. Hugh Landis TIBC DIRECT 249.0 ug/dL Critically low 250.0-450.0 [facility] Comment on above: Performed By: #### P T #### [facility] [address] [place] [address] Dr. Hugh Landis MAGNESIUMon 06-11-2022 Magnesium [Mass/Vol] 1.9 mg/dL Normal 1.8-2.4 [facility] Comment on above: Performed By: #### P TT #### [facility] [address] [address] [address] Hugh Landis RENAL FUNCTION PANELon 06-11 Albumin [Mass/Vol] 3.5 g/dL Normal 3.4-5.0 [facility] Comment on above: Performed By: #### P TT #### [facility] [address] [place] [address] Dr. Hugh Landis Calcium [Mass/Vol] 9.5 mg/dL Normal 8.5-10.1 [facility] Comment on above: Performed By: #### P TT #### [facility] [address] [place] [address] Dr. Hugh Landis Chloride [Moles/Vol] 107 mmol/L Normal 98-107 [facility] Comment on above: Performed By: #### P TT #### [facility] [address] [place] [address] Dr. Hugh Landis CO2 [Moles/Vol] 30.9 mmol/L Normal 21.0-32.0 [facility] Comment on above: Performed By: #### P TT #### [facility] [address] [place] [address] Dr. Hugh Landis Creatinine [Mass/Vol] 1.41 mg/dL Critically high 0.70-1.30 [facility] Comment on above: Performed By: #### P TT #### [facility] [address] [place] [address] Dr. Hugh Landis EGFR-AF WALLISIAN >60 Normal >=60 [facility] Comment on above: Performed By: #### P TT #### [facility] [address] [place] [address] Dr. Hugh Landis EGFR-NON AF WALLISIAN 52 mL/min/1.73m2 Critically low >=60 [facility] Comment on above: Performed By: #### P TT #### [facility] [address] [place] [address] Dr. Hugh Landis Glucose [Mass/Vol] 118 mg/dL Critically high 74-106 [facility] Comment on above: Performed By: #### P TT #### [facility] [address] [address] [address] Hugh Landis Phosphate [Mass/Vol] 3.0 mg/dL Normal 2.6-4.7 [facility] Comment on above: Performed By: #### P TT #### [facility] [address] [address] [address] Hugh Landis Potassium [Moles/Vol] 3.9 mmol/L Normal 3.5-5.1 [facility] Comment on above: Performed By: #### P TT #### [facility] [address] [place] [address] Dr. Hugh Landis Sodium [Moles/Vol] 143 mmol/L Normal 136-145 [facility] Comment on above: Performed By: #### P TT #### [facility] [address] [place] [address] Dr. Hugh Landis Urea nitrogen [Mass/Vol] 19.0 mg/dL Critically high 7.0-18.0 [facility] Comment on above: Performed By: #### P TT #### [facility] [address] [place] [address] Dr. Hugh Landis UA RANDOM W/MICROSCOPICon BACTERIA NONE SEEN Normal NONE SEEN [facility] Comment on above: Performed By: #### P T #### [facility] [address] [place] [address] Dr. Hugh Landis Bilirubin Ql (U) Negative Normal NEGATIVE [facility] Comment on above: Performed By: #### P T #### [facility] [address] [place] [address] Dr. Hugh Landis CAST NONE SEEN Normal NONE SEEN [facility] Comment on above: Performed By: #### P T #### [facility] [address] [place] [address] Dr. Hugh Landis Clarity (U) CLEAR Normal CLEAR [facility] Comment on above: Performed By: #### P T #### [facility] [address] [place] [address] Dr. Hugh Lanids Color (U) YELLOW Normal YELLOW [facility] Comment on above: Performed By: #### P T #### [facility] [address] [place] [address] Dr. Hugh Landis Crystals LM Nom (Urine sed) NONE SEEN Normal NONE SEEN [facility] Comment on above: Performed By: #### P T #### [facility] [address] [place] [address] Dr. Hugh Landis Epithelial cells LM Ql (Urine sed) FEW Abnormal NONE SEEN /RARE [facility] Comment on above: Performed By: #### P T #### [facility] [address] [place] [address] Dr. Hugh Landis Glucose Ql (U) Negative Normal NEGATIVE [facility] Comment on above: Performed By: #### P T #### [facility] [address] [place] [address] Dr. Hugh Landis Hemoglobin Ql (U) Negative Normal NEGATIVE [facility] Comment on above: Performed By: #### P T #### [facility] [address] [place] [address] Dr. Hugh Landis Ketones Ql (U) TRACE Abnormal NEGATIVE [facility] Comment on above: Performed By: #### P T #### [facility] [address] [place] [address] Dr. Hugh Landis LEUKOCYTES Negative Normal NEGATIVE [facility] Comment on above: Performed By: #### P T #### [facility] [address] [place] [address] Dr. Hugh Landis MUCOUS MODERATE Abnormal NONE SEEN [facility] Comment on above: Performed By: #### P T #### [facility] [address] [place] [address] Dr. Hugh Landis Nitrite Ql (U) Negative Normal NEGATIVE [facility] Comment on above: Performed By: #### P T #### [facility] [address] [place] [address] Dr. Hugh Landis pH (U) 5.0 [pH] Normal 5-9 [facility] Comment on above: Performed By: #### P T #### [facility] [address] [place] [address] Dr. Hugh Landis RBC NONE SEEN Abnormal 0-2 [facility] Comment on above: Performed By: #### P T #### [facility] [address] [place] [address] Dr. Hugh Landis SPEC GRAVITY 1.025 Normal 1.005-<=1.02 5 [facility] Comment on above: Performed By: #### P T #### [facility] [address] [place] [address] Dr. Hugh Landis UA PROTEIN TRACE Normal NEGATIVE/ TRACE [facility] Comment on above: Performed By: #### P T #### [facility] [address] [place] [address] Dr. Hugh Landis Urobilinogen Qn (U) 0.2 {Dahiana'U}/dL Normal 0.2 - 1. 0 [facility] Comment on above: Performed By: #### P T #### [facility] [address] [place] [address] Dr. Hugh Landis WBC NONE SEEN Normal NONE SEEN [facility] Comment on above: Performed By: #### P T #### [facility] [address] [place] [address] Dr. Hugh Landis URIC ACID SERUMon 06-11-2022 Urate [Mass/Vol] 7.5 mg/dL Critically high 3.5-7.2 [facility] Comment on above: Performed By: #### P TT #### [facility] [address] [place] [address] Dr. Hugh Landis VITAMIN D 25 OHon 06-11-2022 VIT D 25-OH 35.0 ng/mL Normal [facility] Comment on above: Performed By: #### P T #### [facility] [address] [place] [address] Dr. Hugh Landis VIT D RANGES SEE BELOW Normal [facility] Comment on above: Result Comment: <20 ng/mL Vit D deficient 20 - <30 ng/mL Vit D insufficient 30 - 100 ng/mL Vit D sufficient >100 ng/mL Potential Toxicity Performed By: #### P T #### [facility] [address] [place] [address] Dr. Hugh Landis PROTIMEon 03-15-2022 INR Coag (PPP) [Relative time] 1.11 {INR} Normal [facility] Comment on above: Performed By: #### P T #### [facility] [address] [place] [address] Dr. Hugh Landis INR GUIDELINES SEE BELOW Normal [facility] Comment on above: Result Comment: VIC RED INR: 2.0 - 3.0 CONDITIONS NOT LISTED BELOW 2.5 - 3.5 FOR PROSTHETIC HEART VALVE REPLACEMENT 2.5 - 3.5 RECURRENT THROMBOSIS Performed By: #### P T #### [facility] [address] [place] [address] Dr. Hugh Landis PT Coag (PPP) [Time] 11.7 s Critically high 9.0-11.6 [facility] Comment on above: Performed By: #### P T #### [facility] [address] [place] [address] Dr. Hugh Landis UA (CLEAN/CATCH) SPECIAL EQUIPMENT TECHNICIAN/MICRO I F IND.on 03-15-2022 Bilirubin Ql (U) Negative Normal NEGATIVE [facility] Comment on above: Performed By: #### P TT #### [facility] [address] [place] [address] Dr. Hugh Landis Clarity (U) CLEAR Normal CLEAR [facility] Comment on above: Performed By: #### P TT #### [facility] [address] [place] [address] Dr. Hugh Landis Color (U) YELLOW Normal YELLOW [facility] Comment on above: Performed By: #### P TT #### [facility] [address] [place] [address] Dr. Hugh Landis Glucose Ql (U) Negative Normal NEGATIVE [facility] Comment on above: Performed By: #### P TT #### [facility] [address] [place] [address] Dr. Hugh Landis Hemoglobin Ql (U) SMALL Abnormal NEGATIVE [facility] Comment on above: Performed By: #### P TT #### [facility] [address] [place] [address] Dr. Hugh Landis Ketones Ql (U) Negative Normal NEGATIVE [facility] Comment on above: Performed By: #### P TT #### [facility] [address] [place] [address] Dr. Hugh Landis LEUKOCYTES Negative Normal NEGATIVE [facility] Comment on above: Performed By: #### P TT #### [facility] [address] [address] [address] Hugh Landis Nitrite Ql (U) Negative Normal NEGATIVE [facility] Comment on above: Performed By: #### P TT #### [facility] [address] [place] [address] Dr. Hugh Landis pH (U) 5.5 [pH] Normal 5-9 [facility] Comment on above: Performed By: #### P TT #### [facility] [address] [place] [address] Dr. Hugh Landis SPEC GRAVITY 1.025 Normal 1.005-<=1.02 5 [facility] Comment on above: Performed By: #### P TT #### [facility] [address] [place] [address] Dr. Hugh Landis UA PROTEIN Negative Normal NEGATIVE/ TRACE [facility] Comment on above: Performed By: #### P TT #### [facility] [address] [place] [address] Dr. Hugh Landis UR MICRO IND INDICATED Normal [facility] Comment on above: Performed By: #### P TT #### [facility] [address] [place] [address] Dr. Hugh Landis Urobilinogen Qn (U) 0.2 {Dahiana'U}/dL Normal 0.2 - 1. 0 [facility] Comment on above: Performed By: #### P TT #### [facility] [address] [place] [address] Dr. Hugh Landis URINE MICROSCOPIC ONLYon BACTERIA TRACE Abnormal NONE SEEN [facility] Comment on above: Performed By: #### P TT #### [facility] [address] [place] [address] Dr. Hugh Landis Bacteria identified Cx Nom (U) NOT INDICATED Normal [facility] Comment on above: Performed By: #### P TT #### [facility] [address] [place] [address] Dr. Hugh Landis CAST NONE SEEN Normal NONE SEEN [facility] Comment on above: Performed By: #### P TT #### [facility] [address] [place] [address] Dr. Hugh Landis Crystals LM Nom (Urine sed) NONE SEEN Normal NONE SEEN [facility] Comment on above: Performed By: #### P TT #### [facility] [address] [place] [address] Dr. Hugh Landis Epithelial cells LM Ql (Urine sed) RARE Normal NONE SEEN /RARE [facility] Comment on above: Performed By: #### P TT #### [facility] [address] [place] [address] Dr. Hugh Landis MUCOUS NONE SEEN Normal NONE SEEN [facility] Comment on above: Performed By: #### P TT #### [facility] [address] [place] [address] Dr. Hugh Landis RBC 0-2 Normal 0-2 [facility] Comment on above: Performed By: #### P TT #### [facility] [address] [place] [address] Dr. Hugh Landis WBC 0-2 Abnormal NONE SEEN [facility] Comment on above: Performed By: #### P TT #### [facility] [address] [place] [address] Dr. Hugh Landis MRSA NARES #1on 03-08-2022 MRSA NARES #1 Culture Observations : NO GROWTH OF MRSA AT 48 HOURS. Normal [facility] Comment on above: Performed By: #### B MP #### [facility] [address] [place] [address] Dr. Hugh Landis PROF CHEM 8 (BAS METB)on Anion gap [Moles/Vol] 9.9 mmol/L Normal [facility] Comment on above: Performed By: #### C MP, LIPID, TSH #### [facility] [address] [place] [address] Dr. Hugh Landis Calcium [Mass/Vol] 9.4 mg/dL Normal 8.5-10.1 [facility] Comment on above: Performed By: #### C MP, LIPID, TSH #### [facility] [address] [address] [address] Hugh Landis Chloride [Moles/Vol] 103 mmol/L Normal 98-107 [facility] Comment on above: Performed By: #### C MP, LIPID, TSH #### [facility] [address] [place] [address] Dr. Hugh Landis CO2 [Moles/Vol] 31.6 mmol/L Normal 21.0-32.0 [facility] Comment on above: Performed By: #### C MP, LIPID, TSH #### [facility] [address] [place] [address] Dr. Hugh Landis Creatinine [Mass/Vol] 1.25 mg/dL Normal 0.70-1.30 [facility] Comment on above: Performed By: #### C MP, LIPID, TSH #### [facility] [address] [place] [address] Dr. Hugh Landis EGFR-AF WALLISIAN >60 Normal >=60 [facility] Comment on above: Performed By: #### C MP, LIPID, TSH #### [facility] [address] [place] [address] Dr. Hugh Landis EGFR-NON AF WALLISIAN 59 mL/min/1.73m2 Critically low >=60 [facility] Comment on above: Performed By: #### C MP, LIPID, TSH #### [facility] [address] [place] [address] Dr. Hugh Landis Glucose [Mass/Vol] 110 mg/dL Critically high 74-106 [facility] Comment on above: Performed By: #### C MP, LIPID, TSH #### [facility] [address] [place] [address] Dr. Hugh Landis Potassium [Moles/Vol] 3.5 mmol/L Normal 3.5-5.1 [facility] Comment on above: Performed By: #### C MP, LIPID, TSH #### [facility] [address] [place] [address] Dr. Hugh Landis Sodium [Moles/Vol] 141 mmol/L Normal 136-145 [facility] Comment on above: Performed By: #### C MP, LIPID, TSH #### [facility] [address] [place] [address] Dr. Hugh Landis Urea nitrogen [Mass/Vol] 27.0 mg/dL Critically high 7.0-18.0 [facility] Comment on above: Performed By: #### C MP, LIPID, TSH #### [facility] [address] [address] [address] Hugh Landis Urea nitrogen/Creatinine [Mass ratio] 21.6 mg/mg Normal [facility] Comment on above: Performed By: #### C MP, LIPID, TSH #### [facility] [address] [place] [address] Dr. Hugh Landis PTTon 03-08-2022 aPTT Coag (Bld) [Time] 27.0 s Normal 22.3-36.2 [facility] Comment on above: Performed By: #### P TT #### [facility] [address] [place] [address] Dr. Hugh Landis INSULINon 01-25-2022 Insulin 11.1 uIU/mL Normal 2.6-24.9 [facility] Comment on above: Performed By: #### U TOMAS, TSH, CMP, LIPID, T7 #### [facility] [address] [place] [address] Dr. Hugh Landis CBC AUTO DIFFon 01-24-2022 BASO # 0.1 103/ul Normal 0.0-0.1 [facility] Comment on above: Performed By: #### C MP, LIPID, TSH #### [facility] [address] [place] [address] Dr. Hugh Landis Basophils/100 WBC (Bld) 1.3 % Normal 0.2-2.0 [facility] Comment on above: Performed By: #### C MP, LIPID, TSH #### [facility] [address] [place] [address] Dr. Hugh Landis EO # 0.2 103/ul Normal 0.0-0.7 [facility] Comment on above: Performed By: #### C MP, LIPID, TSH #### [facility] [address] [place] [address] Dr. Hugh Landis Eosinophils/100 WBC (Bld) 4.7 % Normal 0.9-7.0 [facility] Comment on above: Performed By: #### C MP, LIPID, TSH #### [facility] [address] [place] [address] Dr. Hugh Landis Erythrocyte distribution width (RBC) [Ratio] 12.6 % Normal 11.0-15.0 [facility] Comment on above: Performed By: #### C MP, LIPID, TSH #### [facility] [address] [place] [address] Dr. Hugh Landis Hematocrit (Bld) [Volume fraction] 39.1 % Critically low 42.0-54.0 [facility] Comment on above: Performed By: #### C MP, LIPID, TSH #### [facility] [address] [place] [address] Dr. Hugh Landis Hemoglobin (Bld) [Mass/Vol] 12.4 g/dL Critically low 14.0-18.0 [facility] Comment on above: Performed By: #### C MP, LIPID, TSH #### [facility] [address] [place] [address] Dr. Hugh Landis IG # 0.01 10e3/ul Normal 0.00-0.03 [facility] Comment on above: Performed By: #### C MP, LIPID, TSH #### [facility] [address] [place] [address] Dr. Hugh Landis IG % 0.2 % Normal 0.0-0.5 [facility] Comment on above: Performed By: #### C MP, LIPID, TSH #### [facility] [address] [address] [address] Hugh Landis LYMPH # 0.9 103/ul Critically low 1.2-3.8 [facility] Comment on above: Performed By: #### C MP, LIPID, TSH #### [facility] [address] [address] [address] Hugh Landis Lymphocytes/100 WBC (Bld) 19.4 % Critically low 20.5-60.0 [facility] Comment on above: Performed By: #### C MP, LIPID, TSH #### [facility] [address] [address] [address] Hugh Landis MANUAL DIFF REQ NO Normal [facility] Comment on above: Performed By: #### C MP, LIPID, TSH #### [facility] [address] [place] [address] Dr. Hugh Landis MCH (RBC) [Entitic mass] 29.2 pg Normal 25.9-34.0 [facility] Comment on above: Performed By: #### C MP, LIPID, TSH #### [facility] [address] [place] [address] Dr. Hugh Landis MCHC (RBC) [Mass/Vol] 31.7 g/dL Normal 29.9-35.2 [facility] Comment on above: Performed By: #### C MP, LIPID, TSH #### [facility] [address] [address] [address] Hugh Landis MCV (RBC) [Entitic vol] 92.0 fL Normal 80.0-94.0 [facility] Comment on above: Performed By: #### C MP, LIPID, TSH #### [facility] [address] [address] [address] Hugh Landis MONO # 0.5 103/ul Normal 0.3-0.8 [facility] Comment on above: Performed By: #### C MP, LIPID, TSH #### [facility] [address] [address] [address] Hugh Landis Monocytes/100 WBC (Bld) 9.6 % Normal 1.7-12.0 [facility] Comment on above: Performed By: #### C MP, LIPID, TSH #### [facility] [address] [address] [address] Hugh Landis NEUT # 3.0 103/ul Normal 1.4-6.5 [facility] Comment on above: Performed By: #### C MP, LIPID, TSH #### [facility] [address] [place] [address] Dr. Hugh Landis Neutrophils/100 WBC (Bld) 64.8 % Normal 43.0-75.0 [facility] Comment on above: Performed By: #### C MP, LIPID, TSH #### [facility] [address] [place] [address] Dr. Hugh Landis Platelet mean volume (Bld) [Entitic vol] 9.4 fL Critically low 9.5-13.5 [facility] Comment on above: Performed By: #### C MP, LIPID, TSH #### [facility] [address] [place] [address] Dr. Hugh Landis PLT 232 103/ul Normal 150-450 [facility] Comment on above: Performed By: #### C MP, LIPID, TSH #### [facility] [address] [place] [address] Dr. Hugh Landis RBC 4.25 106/ul Critically low 4.70-6.[address] [facility] Comment on above: Performed By: #### C MP, LIPID, TSH #### [facility] [address] [place] [address] Dr. Hugh Landis WBC 4.7 103/ul Normal 4.0-11.0 [facility] Comment on above: Performed By: #### C MP, LIPID, TSH #### [facility] [address] [place] [address] Dr. Hugh Landis FREE THYROXINE INDEX T7on -2021 FTI 2.65 Normal 1.30-4.50 [facility] Comment on above: Performed By: #### B MP #### [facility] [address] [place] [address] Dr. Hugh Landis T3U 34.0 % Normal 33.0-40.0 [facility] Comment on above: Performed By: #### B MP #### [facility] [address] [address] [address] Hugh Landis T4 [Mass/Vol] 7.80 ug/dL Normal 4.50-12.10 [facility] Comment on above: Performed By: #### B MP #### [facility] [address] [address] [address] Hugh Landis GLYCOHEMOGLOBIN A1Con 2021 ADA RECOMMENDATION SEE BELOW Normal [facility] Comment on above: Result Comment: ADA RECOMMENDED LIMIT 4.0 - 6.0 ADA THERAPEUTIC TARGET < 7.0 ACTION SUGGESTED > 7.0 Performed By: #### C MP, LIPID, TSH #### [facility] [address] [place] [address] Dr. Hugh Landis Glucose [Mass/Vol] 123 mg/dL Normal [facility] Comment on above: Performed By: #### C MP, LIPID, TSH #### [facility] [address] [place] [address] Dr. Hugh Landis HbA1c (Bld) [Mass fraction] 5.9 % Normal 4.5-6.2 [facility] Comment on above: Performed By: #### C MP, LIPID, TSH #### [facility] [address] [place] [address] Dr. Hugh Landis LIPID PROFILEon 01-24-2022 CHOL-HDL RATIO NORM SEE BELOW Normal [facility] Comment on above: Result Comment: 3.3 - 4.4 LOW RISK 4.4 - 7.1 AVERAGE RISK 7.1 - 11.0 MODERATE RISK >11.0 HIGH RISK Performed By: #### U TOMAS, TSH, CMP, LIPID, T7 #### [facility] [address] [place] [address] Dr. Hugh Landis Cholesterol [Mass/Vol] 179 mg/dL Normal <=200 [facility] Comment on above: Performed By: #### U TOMAS, TSH, CMP, LIPID, T7 #### [facility] [address] [place] [address] Dr. Hugh Landis Cholesterol in HDL [Mass/Vol] 46 mg/dL Normal 40-60 [facility] Comment on above: Performed By: #### U TOMAS, TSH, CMP, LIPID, T7 #### [facility] [address] [address] [address] Hugh Landis Cholesterol in LDL [Mass/Vol] 100.4 mg/dL Normal [facility] Comment on above: Performed By: #### U TOMAS, TSH, CMP, LIPID, T7 #### [facility] [address] [address] [address] Hugh Landis Cholesterol.total/Ch olesterol in HDL [Mass ratio] 3.9 {ratio} Normal [facility] Comment on above: Performed By: #### U TOMAS, TSH, CMP, LIPID, T7 #### [facility] [address] [address] [address] Hugh Landis HDL NORMAL > or = 60 mg/dl - LO W CARDIOVASCULAR RISK <40 mg/dl - HIGH CARDIOVASCULAR RISK Normal [facility] Comment on above: Performed By: #### U TOMAS, TSH, CMP, LIPID, T7 #### [facility] [address] [address] [address] Hugh Landis LDL CALC NORMAL SEE BELOW Normal [facility] Comment on above: Result Comment: <100 mg/dl OPTIMAL 100 - 129 mg/dl NEAR OR ABOVE OPTIMAL 130 - 159 mg/dl BORDERLINE HIGH 160 - 189 mg/dl HIGH >190 mg/dl VERY HIGH Performed By: #### U TOMAS, TSH, CMP, LIPID, T7 #### [facility] [address] [address] [address] Hugh Landis Triglyceride [Mass/Vol] 163 mg/dL Critically high <=150 [facility] Comment on above: Performed By: #### U TOMAS, TSH, CMP, LIPID, T7 #### [facility] [address] [address] [address] Hugh Landis VLDL CALC 32.6 mg/dL Normal [facility] Comment on above: Performed By: #### U TOMAS, TSH, CMP, LIPID, T7 #### [facility] [address] [place] [address] Dr. Hugh Landis PROF 14(COMP METB)on 022 Albumin [Mass/Vol] 3.6 g/dL Normal 3.4-5.0 [facility] Comment on above: Performed By: #### U TOMAS, TSH, CMP, LIPID, T7 #### [facility] [address] [place] [address] Dr. Hugh Landis Albumin/Globulin [Mass ratio] 0.9 {ratio} Normal [facility] Comment on above: Performed By: #### U TOMAS, TSH, CMP, LIPID, T7 #### [facility] [address] [place] [address] Dr. Hugh Landis ALP [Catalytic activity/Vol] 81 U/L Normal 46-116 [facility] Comment on above: Performed By: #### U TOMAS, TSH, CMP, LIPID, T7 #### [facility] [address] [place] [address] Dr. Hugh Landis ALT [Catalytic activity/Vol] 19 U/L Normal 16-63 [facility] Comment on above: Performed By: #### U TOMAS, TSH, CMP, LIPID, T7 #### [facility] [address] [place] [address] Dr. Hugh Landis Anion gap [Moles/Vol] 13.4 mmol/L Normal [facility] Comment on above: Performed By: #### U TOMAS, TSH, CMP, LIPID, T7 #### [facility] [address] [place] [address] Dr. Hugh Landis AST [Catalytic activity/Vol] 16 U/L Normal 15-37 [facility] Comment on above: Performed By: #### U TOMAS, TSH, CMP, LIPID, T7 #### [facility] [address] [place] [address] Dr. Hugh Landis Bilirubin [Mass/Vol] 0.5 mg/dL Normal 0.2-1.0 [facility] Comment on above: Performed By: #### U TOMAS, TSH, CMP, LIPID, T7 #### [facility] [address] [place] [address] Dr. Hugh Landis Calcium [Mass/Vol] 9.7 mg/dL Normal 8.5-10.1 [facility] Comment on above: Performed By: #### U TOMAS, TSH, CMP, LIPID, T7 #### [facility] [address] [address] [address] Hugh Landis Chloride [Moles/Vol] 105 mmol/L Normal 98-107 [facility] Comment on above: Performed By: #### U TOMAS, TSH, CMP, LIPID, T7 #### [facility] [address] [address] [address] Hugh Landis CO2 [Moles/Vol] 27.4 mmol/L Normal 21.0-32.0 [facility] Comment on above: Performed By: #### U TOMAS, TSH, CMP, LIPID, T7 #### [facility] [address] [address] [address] Hugh Landis Creatinine [Mass/Vol] 1.37 mg/dL Critically high 0.70-1.30 [facility] Comment on above: Performed By: #### U TOMAS, TSH, CMP, LIPID, T7 #### [facility] [address] [address] [address] Hugh Landis EGFR-AF WALLISIAN >60 Normal >=60 [facility] Comment on above: Performed By: #### U TOMAS, TSH, CMP, LIPID, T7 #### [facility] [address] [address] [address] Hugh Landis EGFR-NON AF WALLISIAN 53 mL/min/1.73m2 Critically low >=60 [facility] Comment on above: Performed By: #### U TOMAS, TSH, CMP, LIPID, T7 #### [facility] [address] [address] [address] Hugh Landis Globulin (S) [Mass/Vol] 4.0 g/dL Normal [facility] Comment on above: Performed By: #### U TOMAS, TSH, CMP, LIPID, T7 #### [facility] [address] [address] [address] Hugh Landis Glucose [Mass/Vol] 113 mg/dL Critically high 74-106 [facility] Comment on above: Performed By: #### U TOMAS, TSH, CMP, LIPID, T7 #### [facility] [address] [address] [address] Hugh Landis Potassium [Moles/Vol] 3.8 mmol/L Normal 3.5-5.1 [facility] Comment on above: Performed By: #### U TOMAS, TSH, CMP, LIPID, T7 #### [facility] [address] [address] [address] Hugh Landis Protein [Mass/Vol] 7.6 g/dL Normal 6.4-8.2 [facility] Comment on above: Performed By: #### U TOMAS, TSH, CMP, LIPID, T7 #### [facility] [address] [place] [address] Dr. Hugh Landis Sodium [Moles/Vol] 142 mmol/L Normal 136-145 [facility] Comment on above: Performed By: #### U TOMAS, TSH, CMP, LIPID, T7 #### [facility] [address] [place] [address] Dr. Hugh Landis Urea nitrogen [Mass/Vol] 21.0 mg/dL Critically high 7.0-18.0 [facility] Comment on above: Performed By: #### U TOMAS, TSH, CMP, LIPID, T7 #### [facility] [address] [place] [address] Dr. Hugh Landis Urea nitrogen/Creatinine [Mass ratio] 15.3 mg/mg Normal [facility] Comment on above: Performed By: #### U TOMAS, TSH, CMP, LIPID, T7 #### [facility] [address] [place] [address] Dr. Hugh Landis TSHon 01-24-2022 TSH 0.663 uIU/mL Normal 0.358-3.740 [facility] Comment on above: Performed By: #### U TOMAS, TSH, CMP, LIPID, T7 #### [facility] [address] [place] [address] Dr. Hugh Landis URIC ACID SERUMon 01-24-2022 Urate [Mass/Vol] 6.9 mg/dL Normal 3.5-7.2 [facility] Comment on above: Performed By: #### B MP #### [facility] [address] [place] [address] Dr. Hugh Landis VITAMIN D 25 OHon 01-24-2022 VIT D 25-OH 37.0 ng/mL Normal [facility] Comment on above: Performed By: #### P TT #### [facility] [address] [place] [address] Dr. Hugh Landis VIT D RANGES SEE BELOW Normal [facility] Comment on above: Result Comment: <20 ng/mL Vit D deficient 20 - <30 ng/mL Vit D insufficient 30 - 100 ng/mL Vit D sufficient >100 ng/mL Potential Toxicity Performed By: #### P TT #### [facility] [address] [place] [address] Dr. Hugh Landis US KIDNEYSon 12-21-2021 US [...] OBIE TSE Date: 2021-12-21 17:34 Normal [facility] XR ABD FLAT UP_PA Barrett 12-21 XR [...] by: AUSTIN LARIOS Date: 2021-12-21 18:13 Normal [facility] Urine culture routineOrdered By: Estephanie Lowry on 12-17-2021 Bacteria identified Cx Nom (U) No Growth 2 Days [facility] Chlamydia trachomatis DNA [P resence] in Specimen by MUKUL with probe detectionOrdered By: Estephanie Lowry on 12-15-2021 C. trachomatis DNA MUKUL+probe Ql (Unsp spec) Negative Negative [facility] Chlamydia/GC/Trich NAAon Chlamydia Trachomotis, MUKUL Negative Normal Negative [facility] Comment on above: Order Comment: Reaso n for Exam Dysuria Performed By: #### G CCHLAMTRI #### [facility] , #### CUU #### [facility] [address] Neisseria Gonorrhoeae, MUKUL Negative Normal Negative [facility] Comment on above: Order Comment: Reaso n for Exam Dysuria Performed By: #### G CCHLAMTRI #### [facility] , #### CUU #### [facility] [address] [place] [address] [place] Trichomonas MUKUL Negative Normal Negative [facility] Comment on above: Order Comment: Reaso n for Exam Dysuria Result Comment: Perf ormed at: =G - [facility] [address] [id number] [employer] Operator: Shoshana Camargo MD, Phone: [phone] PERFORMED BY: [address] [id number] PATHOLOGIST RN CLINICAL DOCUMENTATION SABRA SAUNDERS M.D. Performed By: #### G CCHLAMTRI #### [facility] , #### CUU #### [facility] [address] [id number] [facility] Chlamydia/GC/Trich MUKUL Negative Negative [employer] Other Neisseria gonorrhoeae DNA [P resence] in Specimen by MUKUL with probe detectionOrdered By: Estephanie Lowry on 12-15-2021 N. gonorrhoeae DNA MUKUL+probe Ql (Unsp spec) Negative Negative [facility] Trichomonas vaginalis DNA [P resence] in Specimen by MUKUL with probe detectionOrdered By: Estephanie Lowry on 12-15-2021 T. vaginalis DNA MUKUL+probe Ql (Unsp spec) Negative Negative [facility] Comment on above: Performed at: =[address] [id number] Director: Shoshana Camargo MD, Phone: [phone] Urinalysis - AUTOMATEDon Appearance (U) clear [employer] Other Bilirubin Ql (U) Negative [employer] Other Color (U) orange [employer] Other Glucose Ql (U) Negative [employer] Other Hemoglobin Ql (U) moderate [employer] Other Ketones Ql (U) Negative [employer] Other Leukocyte esterase Test strip Ql (U) Negative [employer] Other Nitrite Ql (U) Positive [employer] Other pH (U) 5.5 [pH] [employer] Other Protein Ql (U) Negative [employer] Other Specific gravity (U) [Rel density] 1.015 [employer] Other Urobilinogen (U) [Mass/Vol] 0.2 mg/dL [employer] Other Urinalysis - AUTOMATED [employer] Other Urine Cultureon 12-15-2021 Bacteria identified Cx Nom (U) Reason for Exam Dysuria Urine No Growth 2 Days PERFORMED BY: [place] [address] PATHOLOGIST RN CLINICAL DOCUMENTATION SABRA SAUNDERS M.D. Normal [facility] Comment on above: Performed By: #### G CCHLAMTRI #### [facility] , #### CUU #### [address] Bacteria identified Cx Nom (U) [facility]Apart [facility] Other CULTURE URINEon 11-24-2021 CULTURE URINE Culture Observations : NO GROWTH. Normal [facility] Comment on above: Performed By: #### B MP #### [facility] [address] [address] [address] Hugh Landis PROTEIN ELECTROPHERESIS URIN E RANDOMon 11-17-2021 Albumin, U 33.4 % Normal [facility] Comment on above: Performed By: #### C MP, LIPID, TSH #### [facility] [address] [address] [address] Hugh Landis Alpha-1 Globulin U 4.7 % Normal [facility] Comment on above: Performed By: #### C MP, LIPID, TSH #### [facility] [address] [address] [address] Hugh Landis Alpha-2 Glubulin U 18.6 % Normal [facility] Comment on above: Performed By: #### C MP, LIPID, TSH #### [facility] [address] [address] [address] Hugh Landis Beta Globulin, U 19.9 % Normal [facility] Comment on above: Performed By: #### C MP, LIPID, TSH #### [facility] [address] [address] [address] Hugh Landis Gamma Globulin U 23.4 % Normal [facility] Comment on above: Performed By: #### C MP, LIPID, TSH #### [facility] [address] [address] [address] Hugh Landis M-Tariq, % Not Observed Normal Not Observed [facility] Comment on above: Performed By: #### C MP, LIPID, TSH #### [facility] [address] [address] [address] Hugh Landis PDF . Normal [facility] Comment on above: Performed By: #### C MP, LIPID, TSH #### [facility] [address] [address] [address] Hugh Landis Please note: Comment Normal [facility] Comment on above: Result Comment: Prot ein electrophoresis scan will follow via computer, mail, or electronic wirer delivery. Performed By: #### C MP, LIPID, TSH #### [facility] [address] [address] [address] Hugh Landis Protein (U) [Mass/Vol] 4.9 mg/dL Normal Not Estab. [facility] Comment on above: Performed By: #### C MP, LIPID, TSH #### [facility] [address] [address] [address] Hugh Landis IMMUNOFIXATION(PRINCE),PROTEIN ELEC(PE),FREon 11-16-2021 Albumin [Mass/Vol] 3.4 g/dL Normal 2.9-4.4 [facility] Comment on above: Performed By: #### C MP, LIPID, TSH #### [facility] [address] [address] [address] Hugh Landis Albumin/Globulin [Mass ratio] 1.0 {ratio} Normal 0.7-1.7 [facility] Comment on above: Performed By: #### C MP, LIPID, TSH #### [facility] [address] [address] [address] Hugh Landis Aemrx-3-Sujatkrx 0.2 g/dL Normal 0.0-0.4 [facility] Comment on above: Performed By: #### C MP, LIPID, TSH #### [facility] [address] [place] [address] Dr. Hugh Landis Txhww-6-Hzbsmlqs 1.1 g/dL Critically high 0.4-1.0 [facility] Comment on above: Performed By: #### C MP, LIPID, TSH #### [facility] [address] [place] [address] Dr. Hugh Landis Beta Globulin 1.0 g/dL Normal 0.7-1.3 [facility] Comment on above: Performed By: #### C MP, LIPID, TSH #### [facility] [address] [place] [address] Dr. Hugh Landis Free [place] Lt Chains,S 35.7 mg/L Critically high 3.3-19.4 [facility] Comment on above: Performed By: #### C MP, LIPID, TSH #### [facility] [address] [place] [address] Dr. Hugh Landis Free Lambda Lt Chains,S 21.1 mg/L Normal 5.7-26.3 [facility] Comment on above: Performed By: #### C MP, LIPID, TSH #### [facility] [address] [place] [address] Dr. Hugh Landis Gamma Globulin 1.2 g/dL Normal 0.4-1.8 [facility] Comment on above: Performed By: #### C MP, LIPID, TSH #### [facility] [address] [place] [address] Dr. Hugh Landis Globulin (S) [Mass/Vol] 3.5 g/dL Normal 2.2-3.9 [facility] Comment on above: Performed By: #### C MP, LIPID, TSH #### [facility] [address] [place] [address] Dr. Hugh Landis Immunofixation Result, Serum Comment Normal [facility] Comment on above: Result Comment: No m onoclonality detected. Performed By: #### C MP, LIPID, TSH #### [facility] [address] [address] [address] Hugh Landis Immunoglobulin A, Qn, Serum 228 mg/dL Normal 90-386 [facility] Comment on above: Performed By: #### C MP, LIPID, TSH #### [facility] [address] [address] [address] Hugh Landis Immunoglobulin G, Qn, Serum 1221 mg/dL Normal 603-1613 [facility] Comment on above: Performed By: #### C MP, LIPID, TSH #### [facility] [address] [address] [address] Hugh Landis Immunoglobulin M, Qn, Serum 79 mg/dL Normal 20-172 [facility] Comment on above: Performed By: #### C MP, LIPID, TSH #### [facility] [address] [place] [address] Dr. Hugh Landis Round [place]/Lambda Ratio, S 1.69 Critically high 0.26-1.65 [facility] Comment on above: Performed By: #### C MP, LIPID, TSH #### [facility] [address] [address] [address] Hugh Landis M-Tariq Not Observed Normal Not Observed [facility] Comment on above: Performed By: #### C MP, LIPID, TSH #### [facility] [address] [address] [address] Hugh Landis PDF . Normal [facility] Comment on above: Performed By: #### C MP, LIPID, TSH #### [facility] [address] [address] [address] Hugh Landis Please note: Comment Normal [facility] Comment on above: Result Comment: Prot ein electrophoresis scan will follow via computer, mail, or electronic wirer delivery. Performed By: #### C MP, LIPID, TSH #### [facility] [address] [place] [address] Dr. Hugh Landis Protein [Mass/Vol] 6.9 g/dL Normal 6.0-8.5 [facility] Comment on above: Performed By: #### C MP, LIPID, TSH #### [facility] [address] [address] [address] Hugh Landis PROTEIN AND CREA RANDOM UR R ATIOon 11-16-2021 Creatinine, Urine 54.8 mg/dL Normal Not Estab. [facility] Comment on above: Performed By: #### C MP, LIPID, TSH #### [facility] [address] [place] [address] Dr. Hugh Landis Protein (U) [Mass/Vol] 4.1 mg/dL Normal Not Estab. [facility] Comment on above: Performed By: #### C MP, LIPID, TSH #### [facility] [address] [address] [address] Hugh Landis Protein/Creat Ratio 75 mg/g creat Normal 0-200 [facility] Comment on above: Performed By: #### C MP, LIPID, TSH #### [facility] [address] [place] [address] Dr. Hugh Landis PTH INTACTon 11-15-2021 PTH, Intact 39 pg/mL Normal 15-65 [facility] Comment on above: Performed By: #### P T #### [facility] [address] [place] [address] Dr. Hugh Landis UA RANDOM W/MICROSCOPICon BACTERIA NONE SEEN Normal NONE SEEN [facility] Comment on above: Performed By: #### P TT #### [facility] [address] [place] [address] Dr. Hugh Landis Bilirubin Ql (U) Negative Normal NEGATIVE [facility] Comment on above: Performed By: #### P TT #### [facility] [address] [place] [address] Dr. Hugh Landis CAST NONE SEEN Normal NONE SEEN [facility] Comment on above: Performed By: #### P TT #### [facility] [address] [place] [address] Dr. Hugh Landis Clarity (U) CLEAR Normal CLEAR [facility] Comment on above: Performed By: #### P TT #### [facility] [address] [place] [address] Dr. Hugh Landis Color (U) LT. YELLOW Normal YELLOW [facility] Comment on above: Performed By: #### P TT #### [facility] [address] [place] [address] Dr. Hugh Landis Crystals LM Nom (Urine sed) NONE SEEN Normal NONE SEEN [facility] Comment on above: Performed By: #### P TT #### [facility] [address] [place] [address] Dr. Hugh Landis Epithelial cells LM Ql (Urine sed) NONE SEEN Normal NONE SEEN /RARE [facility] Comment on above: Performed By: #### P TT #### [facility] [address] [place] [address] Dr. Hugh Landis Glucose Ql (U) Negative Normal NEGATIVE [facility] Comment on above: Performed By: #### P TT #### [facility] [address] [place] [address] Dr. Hugh Landis Hemoglobin Ql (U) MODERATE Abnormal NEGATIVE [facility] Comment on above: Performed By: #### P TT #### [facility] [address] [place] [address] Dr. Hugh Landis Ketones Ql (U) Negative Normal NEGATIVE [facility] Comment on above: Performed By: #### P TT #### [facility] [address] [place] [address] Dr. Hugh Landis LEUKOCYTES Negative Normal NEGATIVE [facility] Comment on above: Performed By: #### P TT #### [facility] [address] [place] [address] Dr. Hugh Landis MUCOUS NONE SEEN Normal NONE SEEN [facility] Comment on above: Performed By: #### P TT #### [facility] [address] [place] [address] Dr. Hugh Landis Nitrite Ql (U) Negative Normal NEGATIVE [facility] Comment on above: Performed By: #### P TT #### [facility] [address] [place] [address] Dr. Hugh Landis pH (U) 5.5 [pH] Normal 5-9 [facility] Comment on above: Performed By: #### P TT #### [facility] [address] [place] [address] Dr. Hugh Landis RBC 5-10 Abnormal 0-2 [facility] Comment on above: Performed By: #### P TT #### [facility] [address] [place] [address] Dr. Hugh Landis SPEC GRAVITY 1.010 Normal 1.005-<=1.02 5 [facility] Comment on above: Performed By: #### P TT #### [facility] [address] [place] [address] Dr. Hugh Landis UA PROTEIN Negative Normal NEGATIVE/ TRACE [facility] Comment on above: Performed By: #### P TT #### [facility] [address] [place] [address] Dr. Hugh Landis Urobilinogen Qn (U) 0.2 {Dahiana'U}/dL Normal 0.2 - 1. 0 [facility] Comment on above: Performed By: #### P TT #### [facility] [address] [place] [address] Dr. Hugh Landis WBC 0-2 Abnormal NONE SEEN [facility] Comment on above: Performed By: #### P TT #### [facility] [address] [place] [address] Dr. Hugh Landis URINE T PROTEIN CREAT RATIOo n 11-15-2021 Protein (U) [Mass/Vol] 10.0 mg/dL Normal <=12.0 [facility] Comment on above: Performed By: #### B MP #### [facility] [address] [place] [address] Dr. Huhg Landis UR PROT CREAT RAT 0.18 Normal [facility] Comment on above: Performed By: #### B MP #### [facility] [address] [place] [address] Dr. Hugh Landis URINE CREAT 57.11 mg/dL Normal 20.00-300.00 [facility] Comment on above: Performed By: #### B MP #### [facility] [address] [place] [address] Dr. Hugh Landis FERRITINon 11-14-2021 Ferritin [Mass/Vol] 95.0 ng/mL Normal 26.0-388.0 [facility] Comment on above: Performed By: #### C MP, LIPID, TSH #### [facility] [address] [place] [address] Dr. Hugh Landis HEMOGRAM AND PLATELon 2021 Hematocrit (Bld) [Volume fraction] 35.7 % Critically low 42.0-54.0 [facility] Comment on above: Performed By: #### U TOMAS, TSH, CMP, LIPID, T7 #### [facility] [address] [place] [address] Dr. Hugh Landis Hemoglobin (Bld) [Mass/Vol] 11.5 g/dL Critically low 14.0-18.0 [facility] Comment on above: Performed By: #### U TOMAS, TSH, CMP, LIPID, T7 #### [facility] [address] [place] [address] Dr. Hugh Landis MCH (RBC) [Entitic mass] 30.3 pg Normal 25.9-34.0 [facility] Comment on above: Performed By: #### U TOMAS, TSH, CMP, LIPID, T7 #### [facility] [address] [place] [address] Dr. Hugh Landis MCHC (RBC) [Mass/Vol] 32.2 g/dL Normal 29.9-35.2 [facility] Comment on above: Performed By: #### U TOMAS, TSH, CMP, LIPID, T7 #### [facility] [address] [place] [address] Dr. Hugh Landis MCV (RBC) [Entitic vol] 93.9 fL Normal 80.0-94.0 [facility] Comment on above: Performed By: #### U TOMAS, TSH, CMP, LIPID, T7 #### [facility] [address] [place] [address] Dr. Hugh Landis PLT 254 103/ul Normal 150-450 [facility] Comment on above: Performed By: #### U TOMAS, TSH, CMP, LIPID, T7 #### [facility] [address] [address] [address] Hugh Landis RBC 3.80 106/ul Critically low 4.70-6.[address] [facility] Comment on above: Performed By: #### U TOMAS, TSH, CMP, LIPID, T7 #### [facility] [address] [address] [address] Hugh Landis WBC 6.4 103/ul Normal 4.0-11.0 [facility] Comment on above: Performed By: #### U TOMAS, TSH, CMP, LIPID, T7 #### [facility] [address] [address] [address] Hugh Landis IRON AND TIBCon 11-14-2021 % SATURATION 27.6 % Normal [facility] Comment on above: Performed By: #### C MP, LIPID, TSH #### [facility] [address] [place] [address] Dr. Hugh Landis Iron [Mass/Vol] 68.0 ug/dL Normal 65.0-175.[address] [facility] Comment on above: Performed By: #### C MP, LIPID, TSH #### [facility] [address] [address] [address] Hugh Landis TIBC DIRECT 246.0 ug/dL Critically low 250.0-450.0 [facility] Comment on above: Performed By: #### C MP, LIPID, TSH #### [facility] [address] [place] [address] Dr. Hugh Landis MAGNESIUMon 11-14-2021 Magnesium [Mass/Vol] 1.8 mg/dL Normal 1.8-2.4 [facility] Comment on above: Performed By: #### U TOMAS, TSH, CMP, LIPID, T7 #### [facility] [address] [address] [address] Hugh Landis RENAL FUNCTION PANELon 11-14 Albumin [Mass/Vol] 3.4 g/dL Normal 3.4-5.0 [facility] Comment on above: Performed By: #### U TOMAS, TSH, CMP, LIPID, T7 #### [facility] [address] [place] [address] Dr. Hugh Landis Calcium [Mass/Vol] 9.1 mg/dL Normal 8.5-10.1 [facility] Comment on above: Performed By: #### U TOMAS, TSH, CMP, LIPID, T7 #### [facility] [address] [address] [address] Hugh Landis Chloride [Moles/Vol] 105 mmol/L Normal 98-107 [facility] Comment on above: Performed By: #### U TOMAS, TSH, CMP, LIPID, T7 #### [facility] [address] [address] [address] Hugh Landis CO2 [Moles/Vol] 29.2 mmol/L Normal 21.0-32.0 [facility] Comment on above: Performed By: #### U TOMAS, TSH, CMP, LIPID, T7 #### [facility] [address] [place] [address] Dr. Hugh Landis Creatinine [Mass/Vol] 1.62 mg/dL Critically high 0.70-1.30 [facility] Comment on above: Performed By: #### U TOMAS, TSH, CMP, LIPID, T7 #### [facility] [address] [address] [address] Hugh Landis EGFR-AF WALLISIAN 53 mL/min/1.73m2 Critically low >=60 [facility] Comment on above: Performed By: #### U TOMAS, TSH, CMP, LIPID, T7 #### [facility] [address] [address] [address] Hugh Landis EGFR-NON AF WALLISIAN 44 mL/min/1.73m2 Critically low >=60 [facility] Comment on above: Performed By: #### U TOMAS, TSH, CMP, LIPID, T7 #### [facility] [address] [address] [address] Hugh Landis Glucose [Mass/Vol] 136 mg/dL Critically high 74-106 [facility] Comment on above: Performed By: #### U TOMAS, TSH, CMP, LIPID, T7 #### [facility] [address] [address] [address] Hugh Landis Phosphate [Mass/Vol] 2.8 mg/dL Normal 2.6-4.7 [facility] Comment on above: Performed By: #### U TOMAS, TSH, CMP, LIPID, T7 #### [facility] [address] [place] [address] Dr. Hugh Landis Potassium [Moles/Vol] 3.1 mmol/L Critically low 3.5-5.1 [facility] Comment on above: Performed By: #### U TOMAS, TSH, CMP, LIPID, T7 #### [facility] [address] [place] [address] Dr. Hugh Landis Sodium [Moles/Vol] 141 mmol/L Normal 136-145 [facility] Comment on above: Performed By: #### U TOMAS, TSH, CMP, LIPID, T7 #### [facility] [address] [place] [address] Dr. Hugh Landis Urea nitrogen [Mass/Vol] 19.0 mg/dL Critically high 7.0-18.0 [facility] Comment on above: Performed By: #### U TOMAS, TSH, CMP, LIPID, T7 #### [facility] [address] [place] [address] Dr. Hugh Landis URIC ACID SERUMon 11-14-2021 Urate [Mass/Vol] 8.7 mg/dL Critically high 3.5-7.2 [facility] Comment on above: Performed By: #### U TOMAS, TSH, CMP, LIPID, T7 #### [facility] [address] [place] [address] Dr. Hugh Landis VIT B12 AND FOLATEon 022 Cobalamin (Vitamin B12) [Mass/Vol] 373.0 pg/mL Normal 193.0-986.0 [facility] Comment on above: Performed By: #### U TOMAS, TSH, CMP, LIPID, T7 #### [facility] [address] [place] [address] Dr. Hugh Landis FOLATE 14.00 ng/mL Normal 8.60-58.90 [facility] Comment on above: Performed By: #### U TOMAS, TSH, CMP, LIPID, T7 #### [facility] [address] [place], [place] [address] Dr. Hugh Landis VITAMIN D 25 OHon 11-14-2021 VIT D 25-OH 33.8 ng/mL Normal [facility] Comment on above: Performed By: #### U TOMAS, TSH, CMP, LIPID, T7 #### [facility] [address] [place], [place] [address] Dr. Hugh Landis VIT D RANGES SEE BELOW Normal [facility] Comment on above: Result Comment: <20 ng/mL Vit D deficient 20 - <30 ng/mL Vit D insufficient 30 - 100 ng/mL Vit D sufficient >100 ng/mL Potential Toxicity Performed By: #### U TOMAS, TSH, CMP, LIPID, T7 #### [facility] [address] [place] [id number] Hugh Landis US KIDNEYS BLADDERon 022 [...] AUSTIN LARIOS Date: 2021-11-01 16:44 Normal [facility] XR CHEST 2 Von 11-01-2021 XR CHEST [...] OBIE TSE Date: 2021-11-01 06:51 Normal [facility] NM LUNG VENT_PERFon 11-01-19 22 NM LUNG VENT_PERF EXAM: NM LUNG VENT_PERF HISTORY: Dyspnea COMPARISON: Chest x-ray 10/31/2021 TECHNIQUE: 6.1 mCi technetium MAA. 24.9 mCi technetium DTPA. FINDINGS: Perfusion images demonstrate no segmental perfusion defects to suggest acute pulmonary embolism Ventilation images are normal without ventilation defects. IMPRESSION: Normal ventilation/perfusion scan Electronically authenticated by: JASPER SCHRADER Date: 2021-10-31 12:35 Normal [facility] PROF CHEM 8 (BAS METB)on Anion gap [Moles/Vol] 17.5 mmol/L Normal [facility] Comment on above: Performed By: #### B MP #### [facility] [address] [place] [address] Dr. Hugh Landis Calcium [Mass/Vol] 9.4 mg/dL Normal 8.5-10.1 [facility] Comment on above: Performed By: #### B MP #### [facility] [address] [place] [address] Dr. Hugh Landis Chloride [Moles/Vol] 100 mmol/L Normal 98-107 [facility] Comment on above: Performed By: #### B MP #### [facility] [address] [place] [address] [address] Hugh Landis CO2 [Moles/Vol] 22.8 mmol/L Normal 21.0-32.0 [facility] Comment on above: Performed By: #### B MP #### [facility] [address] [place] [address] [address] Hugh Landis Creatinine [Mass/Vol] 2.69 mg/dL Critically high 0.70-1.30 [facility] Comment on above: Performed By: #### B MP #### [facility] [address] [place] [address] [address] Hugh Landis EGFR-AF WALLISIAN 30 mL/min/1.73m2 Critically low >=60 [facility] Comment on above: Performed By: #### B MP #### [facility] [address] [place] [address] [address] Hugh Landis EGFR-NON AF WALLISIAN 24 mL/min/1.73m2 Critically low >=60 [facility] Comment on above: Performed By: #### B MP #### [facility] [address] [place] [address] [address] Hugh Landis Glucose [Mass/Vol] 117 mg/dL Critically high 74-106 [facility] Comment on above: Performed By: #### B MP #### [facility] [address] [place] [address] [address] Hugh Landis Potassium [Moles/Vol] 4.3 mmol/L Normal 3.5-5.1 [facility] Comment on above: Performed By: #### B MP #### [facility] [address] [place] [address] Dr. Hugh Landis Sodium [Moles/Vol] 136 mmol/L Normal 136-145 [facility] Comment on above: Performed By: #### B MP #### [facility] [address] [place] [address] Dr. Hugh Landis Urea nitrogen [Mass/Vol] 41.0 mg/dL Critically high 7.0-18.0 [facility] Comment on above: Performed By: #### B MP #### [facility] [address] [place] [address] [address] Hugh Landis Urea nitrogen/Creatinine [Mass ratio] 15.2 mg/mg Normal [facility] Comment on above: Performed By: #### B MP #### [facility] [address] [place] [address] Dr. Hugh Lanids CBC AUTO DIFFon 10-16-2021 BASO # 0.0 103/ul Normal 0.0-0.1 [facility] Comment on above: Performed By: #### P T #### [facility] [address] [place] [address] Dr. Hugh Landis Basophils/100 WBC (Bld) 0.6 % Normal 0.2-2.0 [facility] Comment on above: Performed By: #### P T #### [facility] [address] [place] [address] Dr. Hugh Landis EO # 0.2 103/ul Normal 0.0-0.7 [facility] Comment on above: Performed By: #### P T #### [facility] [address] [place] [address] Dr. Hugh Landis Eosinophils/100 WBC (Bld) 2.3 % Normal 0.9-7.0 [facility] Comment on above: Performed By: #### P T #### [facility] [address] [place] [address] Dr. Hugh Landis Erythrocyte distribution width (RBC) [Ratio] 12.7 % Normal 11.0-15.0 [facility] Comment on above: Performed By: #### P T #### [facility] [address] [place] [address] Dr. Hugh Landis Hematocrit (Bld) [Volume fraction] 36.2 % Critically low 42.0-54.0 [facility] Comment on above: Performed By: #### P T #### [facility] [address] [place] [address] Dr. Hugh Landis Hemoglobin (Bld) [Mass/Vol] 11.5 g/dL Critically low 14.0-18.0 [facility] Comment on above: Performed By: #### P T #### [facility] [address] [place] [address] Dr. Hugh Landis IG # 0.02 10e3/ul Normal 0.00-0.03 [facility] Comment on above: Performed By: #### P T #### [facility] [address] [place] [address] Dr. Hugh Landis IG % 0.3 % Normal 0.0-0.5 [facility] Comment on above: Performed By: #### P T #### [facility] [address] [place] [address] Dr. Hugh Landis LYMPH # 1.4 103/ul Normal 1.2-3.8 [facility] Comment on above: Performed By: #### P T #### [facility] [address] [place] [address] Dr. Hugh Landis Lymphocytes/100 WBC (Bld) 21.3 % Normal 20.5-60.0 [facility] Comment on above: Performed By: #### P T #### [facility] [address] [place] [address] Dr. Hugh Landis MANUAL DIFF REQ NO Normal [facility] Comment on above: Performed By: #### P T #### [facility] [address] [place] [address] Dr. Hugh Landis MCH (RBC) [Entitic mass] 29.6 pg Normal 25.9-34.0 [facility] Comment on above: Performed By: #### P T #### [facility] [address] [place] [address] Dr. Hugh Landis MCHC (RBC) [Mass/Vol] 31.8 g/dL Normal 29.9-35.2 [facility] Comment on above: Performed By: #### P T #### [facility] [address] [place] [address] Dr. Hugh Landis MCV (RBC) [Entitic vol] 93.1 fL Normal 80.0-94.0 [facility] Comment on above: Performed By: #### P T #### [facility] [address] [place] [address] Dr. Hugh Landis MONO # 0.8 103/ul Normal 0.3-0.8 [facility] Comment on above: Performed By: #### P T #### [facility] [address] [place] [address] Dr. Hugh Landis Monocytes/100 WBC (Bld) 11.5 % Normal 1.7-12.0 [facility] Comment on above: Performed By: #### P T #### [facility] [address] [place] [address] Dr. Hugh Landis NEUT # 4.2 103/ul Normal 1.4-6.5 [facility] Comment on above: Performed By: #### P T #### [facility] [address] [place] [address] Dr. Hugh Landis Neutrophils/100 WBC (Bld) 64.0 % Normal 43.0-75.0 [facility] Comment on above: Performed By: #### P T #### [facility] [address] [place] [address] Dr. Hugh Landis Platelet mean volume (Bld) [Entitic vol] 9.2 fL Critically low 9.5-13.5 [facility] Comment on above: Performed By: #### P T #### [facility] [address] [place] [address] Dr. Hugh Landis PLT 241 103/ul Normal 150-450 [facility] Comment on above: Performed By: #### P T #### [facility] [address] [place] [address] Dr. Hugh Landis RBC 3.89 106/ul Critically low 4.70-6.10 [facility] Comment on above: Performed By: #### P T #### [facility] [address] [place] [address] Dr. Hugh Landis WBC 6.5 103/ul Normal 4.0-11.0 [facility] Comment on above: Performed By: #### P T #### [facility] [address] [place] [address] Dr. Hugh Landis [facility] SARS-CoV-2 (COVID-19) RNA MUKUL+probe Ql (Unsp spec) Not detected Normal NOT DETECTED [facility] Comment on above: Result Comment: This test is not yet approved or cleared by the [place] FDA. When there are no FDA-approved or cleared tests available, and other criteria are met, FDA can make tests available under an emergency access mechanism called an Emergency Use Authorization (EUA). The EUA for this test is supported by the [place] of Health and Human Service's (HHS's) declaration [...] U TOMAS, TSH, CMP, LIPID, T7 #### [facility] [address] [place] [address] Dr. Hugh Landis PROF CHEM 8 (BAS METB)on Anion gap [Moles/Vol] 16.3 mmol/L Normal [facility] Comment on above: Performed By: #### C MP, LIPID, TSH #### [facility] [address] [place] [address] Dr. Hugh Landis Calcium [Mass/Vol] 9.6 mg/dL Normal 8.5-10.1 [facility] Comment on above: Performed By: #### C MP, LIPID, TSH #### [facility] [address] [place] [address] Dr. Hugh Landis Chloride [Moles/Vol] 103 mmol/L Normal 98-107 [facility] Comment on above: Performed By: #### C MP, LIPID, TSH #### [facility] [address] [place] [address] Dr. Hugh Landis CO2 [Moles/Vol] 21.9 mmol/L Normal 21.0-32.0 [facility] Comment on above: Performed By: #### C MP, LIPID, TSH #### [facility] [address] [place] [address] Dr. Hugh Landis Creatinine [Mass/Vol] 3.58 mg/dL Critically high 0.70-1.30 [facility] Comment on above: Performed By: #### C MP, LIPID, TSH #### [facility] [address] [place] [address] Dr. Hugh Landis EGFR-AF WALLISIAN 21 mL/min/1.73m2 Critically low >=60 [facility] Comment on above: Performed By: #### C MP, LIPID, TSH #### [facility] [address] [place] [address] Dr. Hugh Landis EGFR-NON AF WALLISIAN 18 mL/min/1.73m2 Critically low >=60 [facility] Comment on above: Performed By: #### C MP, LIPID, TSH #### [facility] [address] [place] [address] Dr. Hugh Landis Glucose [Mass/Vol] 115 mg/dL Critically high 74-106 [facility] Comment on above: Performed By: #### C MP, LIPID, TSH #### [facility] [address] [place] [address] Dr. Hugh Landis Potassium [Moles/Vol] 5.2 mmol/L Critically high 3.5-5.1 [facility] Comment on above: Performed By: #### C MP, LIPID, TSH #### [facility] [address] [place] [address] Dr. Hugh Landis Sodium [Moles/Vol] 136 mmol/L Normal 136-145 [facility] Comment on above: Performed By: #### C MP, LIPID, TSH #### [facility] [address] [place] [address] Dr. Hugh Landis Urea nitrogen [Mass/Vol] 54.0 mg/dL Critically high 7.0-18.0 [facility] Comment on above: Performed By: #### C MP, LIPID, TSH #### [facility] [address] [place] [address] Dr. Hugh Landis Urea nitrogen/Creatinine [Mass ratio] 15.1 mg/mg Normal [facility] Comment on above: Performed By: #### C MP, LIPID, TSH #### [facility] [address] [place] [address] Dr. Hugh Landis MRSA COLONIZATION SCREENING CULTUREon 10-09-2021 MRSA Screening Culture Negative Normal [facility] Comment on above: Performed By: #### C MP, LIPID, TSH #### [facility] [address] [place] [address] Dr. Hugh Landis CBC AUTO DIFFon 10-06-2021 BASO # 0.0 103/ul Normal 0.0-0.1 [facility] Comment on above: Performed By: #### U TOMAS, TSH, CMP, LIPID, T7 #### [facility] [address] [place] [address] Dr. Hugh Landis Basophils/100 WBC (Bld) 0.3 % Normal 0.2-2.0 [facility] Comment on above: Performed By: #### U TOMAS, TSH, CMP, LIPID, T7 #### [facility] [address] [place] [address] Dr. Hugh Landis EO # 0.1 103/ul Normal 0.0-0.7 [facility] Comment on above: Performed By: #### U TOMAS, TSH, CMP, LIPID, T7 #### [facility] [address] [place] [address] Dr. Hugh Landis Eosinophils/100 WBC (Bld) 2.3 % Normal 0.9-7.0 [facility] Comment on above: Performed By: #### U TOMAS, TSH, CMP, LIPID, T7 #### [facility] [address] [place] [address] Dr. Hugh Landis Erythrocyte distribution width (RBC) [Ratio] 13.3 % Normal 11.0-15.0 [facility] Comment on above: Performed By: #### U TOMAS, TSH, CMP, LIPID, T7 #### [facility] [address] [place] [address] Dr. Hugh Landis Hematocrit (Bld) [Volume fraction] 36.5 % Critically low 42.0-54.0 [facility] Comment on above: Performed By: #### U TOMAS, TSH, CMP, LIPID, T7 #### [facility] [address] [place] [address] Dr. Hugh Landis Hemoglobin (Bld) [Mass/Vol] 11.7 g/dL Critically low 14.0-18.0 [facility] Comment on above: Performed By: #### U TOMAS, TSH, CMP, LIPID, T7 #### [facility] [address] [place] [address] [address] Hugh Landis IG # 0.02 10e3/ul Normal 0.00-0.03 [facility] Comment on above: Performed By: #### U TOMAS, TSH, CMP, LIPID, T7 #### [facility] [address] [place] [address] [address] Hugh Landis IG % 0.3 % Normal 0.0-0.5 [facility] Comment on above: Performed By: #### U TOMAS, TSH, CMP, LIPID, T7 #### [facility] [address] [place] [address] Dr. Hugh Landis LYMPH # 1.3 103/ul Normal 1.2-3.8 [facility] Comment on above: Performed By: #### U TOMAS, TSH, CMP, LIPID, T7 #### [facility] [address] [place] [address] Dr. Hugh Landis Lymphocytes/100 WBC (Bld) 21.9 % Normal 20.5-60.0 [facility] Comment on above: Performed By: #### U TOMAS, TSH, CMP, LIPID, T7 #### [facility] [address] [place] [address] Dr. Hugh Landis MANUAL DIFF REQ NO Normal [facility] Comment on above: Performed By: #### U TOMAS, TSH, CMP, LIPID, T7 #### [facility] [address] [place] [address] Dr. Hugh Landis MCH (RBC) [Entitic mass] 29.7 pg Normal 25.9-34.0 [facility] Comment on above: Performed By: #### U TOMAS, TSH, CMP, LIPID, T7 #### [facility] [address] [place] [address] Dr. Hugh Landis MCHC (RBC) [Mass/Vol] 32.1 g/dL Normal 29.9-35.2 [facility] Comment on above: Performed By: #### U TOMAS, TSH, CMP, LIPID, T7 #### [facility] [address] [place] [address] Dr. Hugh Landis MCV (RBC) [Entitic vol] 92.6 fL Normal 80.0-94.0 [facility] Comment on above: Performed By: #### U TOMAS, TSH, CMP, LIPID, T7 #### [facility] [address] [place] [address] [address] Hugh Landis MONO # 0.7 103/ul Normal 0.3-0.8 [facility] Comment on above: Performed By: #### U TOMAS, TSH, CMP, LIPID, T7 #### [facility] [address] [place] [address] [address] Hugh Landis Monocytes/100 WBC (Bld) 11.3 % Normal 1.7-12.0 [facility] Comment on above: Performed By: #### U TOMAS, TSH, CMP, LIPID, T7 #### [facility] [address] [place] [address] [address] Hugh Landis NEUT # 3.7 103/ul Normal 1.4-6.5 [facility] Comment on above: Performed By: #### U TOMAS, TSH, CMP, LIPID, T7 #### [facility] [address] [place] [address] Dr. Hugh Landis Neutrophils/100 WBC (Bld) 63.9 % Normal 43.0-75.0 [facility] Comment on above: Performed By: #### U TOMAS, TSH, CMP, LIPID, T7 #### [facility] [address] [place] [address] [address] Hugh Landis Platelet mean volume (Bld) [Entitic vol] 8.9 fL Critically low 9.5-13.5 [facility] Comment on above: Performed By: #### U TOMAS, TSH, CMP, LIPID, T7 #### [facility] [address] [place] [address] [address] Hugh Landis PLT 257 103/ul Normal 150-450 [facility] Comment on above: Performed By: #### U TOMAS, TSH, CMP, LIPID, T7 #### [facility] [address] [place] [address] [address] Hugh Landis RBC 3.94 106/ul Critically low 4.70-6.[address] [facility] Comment on above: Performed By: #### U TOMAS, TSH, CMP, LIPID, T7 #### [facility] [address] [place] [address] [address] Hugh Landis WBC 5.8 103/ul Normal 4.0-11.0 [facility] Comment on above: Performed By: #### U TOMAS, TSH, CMP, LIPID, T7 #### [facility] [address] [place] [address] [address] Hugh Landis GLYCOHEMOGLOBIN A1Con 2021 ADA RECOMMENDATION SEE BELOW Normal [facility] Comment on above: Result Comment: ADA RECOMMENDED LIMIT 4.0 - 6.0 ADA THERAPEUTIC TARGET < 7.0 ACTION SUGGESTED > 7.0 Performed By: #### U TOMAS, TSH, CMP, LIPID, T7 #### [facility] [address] [place] [address] [address] Hugh Landis Glucose [Mass/Vol] 134 mg/dL Normal [facility] Comment on above: Performed By: #### U TOMAS, TSH, CMP, LIPID, T7 #### [facility] [address] [place] [address] [address] Hugh Landis HbA1c (Bld) [Mass fraction] 6.3 % Critically high 4.5-6.2 [facility] Comment on above: Performed By: #### U TOMAS, TSH, CMP, LIPID, T7 #### [facility] [address] [place] [address] [address] Hugh Landis PROF CHEM 8 (BAS METB)on Anion gap [Moles/Vol] 17.6 mmol/L Normal [facility] Comment on above: Performed By: #### C MP, LIPID, TSH #### [facility] [address] [place] [address] [address] Hugh Landis Calcium [Mass/Vol] 9.5 mg/dL Normal 8.5-10.1 [facility] Comment on above: Performed By: #### C MP, LIPID, TSH #### [facility] [address] [place] [address] [address] Hugh Landis Chloride [Moles/Vol] 102 mmol/L Normal 98-107 [facility] Comment on above: Performed By: #### C MP, LIPID, TSH #### [facility] [address] [place] [address] Dr. Hugh Landis CO2 [Moles/Vol] 22.2 mmol/L Normal 21.0-32.0 [facility] Comment on above: Performed By: #### C MP, LIPID, TSH #### [facility] [address] [place] [address] Dr. Hugh Landis Creatinine [Mass/Vol] 2.94 mg/dL Critically high 0.70-1.30 [facility] Comment on above: Performed By: #### C MP, LIPID, TSH #### [facility] [address] [place] [address] Dr. Hugh Landis EGFR-AF WALLISIAN 27 mL/min/1.73m2 Critically low >=60 [facility] Comment on above: Performed By: #### C MP, LIPID, TSH #### [facility] [address] [place] [address] Dr. Hugh Landis EGFR-NON AF WALLISIAN 22 mL/min/1.73m2 Critically low >=60 [facility] Comment on above: Performed By: #### C MP, LIPID, TSH #### [facility] [address] [place] [address] Dr. Hugh Landis Glucose [Mass/Vol] 234 mg/dL Critically high 74-106 [facility] Comment on above: Performed By: #### C MP, LIPID, TSH #### [facility] [address] [place] [address] Dr. Hugh Landis Potassium [Moles/Vol] 5.8 mmol/L Critically high 3.5-5.1 [facility] Comment on above: Performed By: #### C MP, LIPID, TSH #### [facility] [address] [place] [address] Dr. Hugh Landis Sodium [Moles/Vol] 136 mmol/L Normal 136-145 [facility] Comment on above: Performed By: #### C MP, LIPID, TSH #### [facility] [address] [place] [address] [address] Hugh Landis Urea nitrogen [Mass/Vol] 46.0 mg/dL Critically high 7.0-18.0 [facility] Comment on above: Performed By: #### C MP, LIPID, TSH #### [facility] [address] [place] [address] [address] Hugh Landis Urea nitrogen/Creatinine [Mass ratio] 15.6 mg/mg Normal [facility] Comment on above: Performed By: #### C MP, LIPID, TSH #### [facility] [address] [address] [address] Hugh Landis PROTIMEon 10-06-2021 INR Coag (PPP) [Relative time] 1.22 {INR} Normal [facility] Comment on above: Performed By: #### U TOMAS, TSH, CMP, LIPID, T7 #### [facility] [address] [place] [address] Dr. Hugh Landis INR GUIDELINES SEE BELOW Normal [facility] Comment on above: Result Comment: VIC RED INR: 2.0 - 3.0 CONDITIONS NOT LISTED BELOW 2.5 - 3.5 FOR PROSTHETIC HEART VALVE REPLACEMENT 2.5 - 3.5 RECURRENT THROMBOSIS Performed By: #### U TOMAS, TSH, CMP, LIPID, T7 #### [facility] [address] [place] [address] Dr. Hugh Landis PT Coag (PPP) [Time] 13.0 s Critically high 9.0-11.6 [facility] Comment on above: Performed By: #### U TOMAS, TSH, CMP, LIPID, T7 #### [facility] [address] [place] [address] Dr. Hugh Landis PTTon 10-06-2021 aPTT Coag (Bld) [Time] 30.6 s Normal 22.3-36.2 [facility] Comment on above: Performed By: #### U TOMAS, TSH, CMP, LIPID, T7 #### [facility] [address] [place] [address] Dr. Hugh Landis UA RANDOMon 10-06-2021 Bilirubin Ql (U) Negative Normal NEGATIVE [facility] Comment on above: Performed By: #### C MP, LIPID, TSH #### [facility] [address] [address] [address] Hugh Landis Clarity (U) CLEAR Normal CLEAR [facility] Comment on above: Performed By: #### C MP, LIPID, TSH #### [facility] [address] [address] [address] Hugh Landis Color (U) LT. YELLOW Normal YELLOW [facility] Comment on above: Performed By: #### C MP, LIPID, TSH #### [facility] [address] [address] [address] Hugh Landis Glucose Ql (U) Negative Normal NEGATIVE [facility] Comment on above: Performed By: #### C MP, LIPID, TSH #### [facility] [address] [place] [address] Dr. Hugh Landis Hemoglobin Ql (U) Negative Normal NEGATIVE [facility] Comment on above: Performed By: #### C MP, LIPID, TSH #### [facility] [address] [place] [address] Dr. Hugh Landis Ketones Ql (U) Negative Normal NEGATIVE [facility] Comment on above: Performed By: #### C MP, LIPID, TSH #### [facility] [address] [place] [address] Dr. Hugh Landis LEUKOCYTES Negative Normal NEGATIVE [facility] Comment on above: Performed By: #### C MP, LIPID, TSH #### [facility] [address] [address] [address] Hugh Landis Nitrite Ql (U) Negative Normal NEGATIVE [facility] Comment on above: Performed By: #### C MP, LIPID, TSH #### [facility] [address] [address] [address] uHgh Landis pH (U) 5.5 [pH] Normal 5-9 [facility] Comment on above: Performed By: #### C MP, LIPID, TSH #### [facility] [address] [address] [address] Hugh Landis SPEC GRAVITY 1.020 Normal 1.005-<=1.02 5 [facility] Comment on above: Performed By: #### C MP, LIPID, TSH #### [facility] [address] [place] [address] Dr. Hugh Landis UA PROTEIN Negative Normal NEGATIVE/ TRACE [facility] Comment on above: Performed By: #### C MP, LIPID, TSH #### [facility] [address] [place] [address] Dr. Hugh Landis Urobilinogen Qn (U) 0.2 {Dahiana'U}/dL Normal 0.2 - 1. 0 [facility] Comment on above: Performed By: #### C MP, LIPID, TSH #### [facility] [address] [place] [address] Dr. Hugh Landis CBC AUTO DIFFon 09-25-2021 BASO # 0.0 103/ul Normal 0.0-0.1 [facility] Comment on above: Performed By: #### U TOMAS, TSH, CMP, LIPID, T7 #### [facility] [address] [place] [address] Dr. Hugh Landis Basophils/100 WBC (Bld) 0.4 % Normal 0.2-2.0 [facility] Comment on above: Performed By: #### U TOMAS, TSH, CMP, LIPID, T7 #### [facility] [address] [place] [address] Dr. Hugh Landis EO # 0.1 103/ul Normal 0.0-0.7 [facility] Comment on above: Performed By: #### U TOMAS, TSH, CMP, LIPID, T7 #### [facility] [address] [place] [address] Dr. Hugh Landis Eosinophils/100 WBC (Bld) 1.7 % Normal 0.9-7.0 [facility] Comment on above: Performed By: #### U TOMAS, TSH, CMP, LIPID, T7 #### [facility] [address] [place] [address] Dr. Hugh Landis Erythrocyte distribution width (RBC) [Ratio] 13.5 % Normal 11.0-15.0 [facility] Comment on above: Performed By: #### U TOMAS, TSH, CMP, LIPID, T7 #### [facility] [address] [place] [address] Dr. Hugh Landis Hematocrit (Bld) [Volume fraction] 36.0 % Critically low 42.0-54.0 [facility] Comment on above: Performed By: #### U TOMAS, TSH, CMP, LIPID, T7 #### [facility] [address] [place] [address] Dr. Hugh Landis Hemoglobin (Bld) [Mass/Vol] 11.7 g/dL Critically low 14.0-18.0 [facility] Comment on above: Performed By: #### U TOMAS, TSH, CMP, LIPID, T7 #### [facility] [address] [place] [address] Dr. Hugh Landis IG # 0.02 10e3/ul Normal 0.00-0.03 [facility] Comment on above: Performed By: #### U TOMAS, TSH, CMP, LIPID, T7 #### [facility] [address] [place] [address] Dr. Hugh aLndis IG % 0.3 % Normal 0.0-0.5 [facility] Comment on above: Performed By: #### U TOMAS, TSH, CMP, LIPID, T7 #### [facility] [address] [place] [address] Dr. Hugh Landis LYMPH # 1.3 103/ul Normal 1.2-3.8 [facility] Comment on above: Performed By: #### U TOMAS, TSH, CMP, LIPID, T7 #### [facility] [address] [place] [address] Dr. Hugh Landis Lymphocytes/100 WBC (Bld) 18.3 % Critically low 20.5-60.0 [facility] Comment on above: Performed By: #### U TOMAS, TSH, CMP, LIPID, T7 #### [facility] [address] [place] [address] Dr. Hugh Landis MANUAL DIFF REQ NO Normal The [facility] Comment on above: Performed By: #### U TOMAS, TSH, CMP, LIPID, T7 #### [facility] [address] [place] [address] Dr. Hugh Landis MCH (RBC) [Entitic mass] 29.4 pg Normal 25.9-34.0 [facility] Comment on above: Performed By: #### U TOMAS, TSH, CMP, LIPID, T7 #### [facility] [address] [place] [address] Dr. Hugh Landis MCHC (RBC) [Mass/Vol] 32.5 g/dL Normal 29.9-35.2 [facility] Comment on above: Performed By: #### U TOMAS, TSH, CMP, LIPID, T7 #### [facility] [address] [place] [address] Dr. Hugh Landis MCV (RBC) [Entitic vol] 90.5 fL Normal 80.0-94.0 [facility] Comment on above: Performed By: #### U TOMAS, TSH, CMP, LIPID, T7 #### [facility] [address] [place] [address] Dr. Hugh Landis MONO # 0.6 103/ul Normal 0.3-0.8 [facility] Comment on above: Performed By: #### U TOMAS, TSH, CMP, LIPID, T7 #### [facility] [address] [place] [address] Dr. Hugh Landis Monocytes/100 WBC (Bld) 8.6 % Normal 1.7-12.0 [facility] Comment on above: Performed By: #### U TOMAS, TSH, CMP, LIPID, T7 #### [facility] [address] [place] [address] Dr. Hugh Landis NEUT # 4.9 103/ul Normal 1.4-6.5 [facility] Comment on above: Performed By: #### U TOMAS, TSH, CMP, LIPID, T7 #### [facility] [address] [place] [address] Dr. Hugh Landis Neutrophils/100 WBC (Bld) 70.7 % Normal 43.0-75.0 [facility] Comment on above: Performed By: #### U TOMAS, TSH, CMP, LIPID, T7 #### [facility] [address] [address] [address] Hugh Landis Platelet mean volume (Bld) [Entitic vol] 8.8 fL Critically low 9.5-13.5 [facility] Comment on above: Performed By: #### U TOMAS, TSH, CMP, LIPID, T7 #### [facility] [address] [place] [address] Dr. Hugh Landis PLT 270 103/ul Normal 150-450 [facility] Comment on above: Performed By: #### U TOMAS, TSH, CMP, LIPID, T7 #### [facility] [address] [place] [address] Dr. Hugh Landis RBC 3.98 106/ul Critically low 4.70-6.[address] [facility] Comment on above: Performed By: #### U TOMAS, TSH, CMP, LIPID, T7 #### [facility] [address] [place] [address] Dr. Hugh Landis WBC 6.9 103/ul Normal 4.0-11.0 [facility] Comment on above: Performed By: #### U TOMAS, TSH, CMP, LIPID, T7 #### [facility] [address] [place] [address] Dr. Hugh Landis CRPon 09-25-2021 CRP [Mass/Vol] mg/L Normal <=1.0 The [facility] Comment on above: Performed By: #### P T #### [facility] [address] [place] [address] Dr. Hugh Landis CULTURE BLOODon 09-25-2021 Microscopic examination of blood, culture Culture Observations: NO GROWTH AT 5 DAYS. Normal [facility] Comment on above: Performed By: #### B MP #### [facility] [address] [place] [address] Dr. Hugh Landis Microscopic examination of blood, culture Culture Observations: NO GROWTH AT 5 DAYS. Normal [facility] Comment on above: Performed By: #### B MP #### [facility] [address] [place] [address] Dr. Hugh Landis IRONon 09-25-2021 Iron [Mass/Vol] 62.0 ug/dL Critically low 65.0-175.0 [facility] Comment on above: Performed By: #### B MP #### [facility] [address] [address] [address] Hugh Landis SED RATE MONTEZUMAERGRENon 2021 SED RATE 102 mm/hr Critically high <=20 [facility] Comment on above: Performed By: #### C MP, LIPID, TSH #### [facility] [address] [place] [address] Dr. Hugh Landis NM BONE IMAGE 3 [...] OBIE TSE Date: 2021-09-05 16:15 Normal [facility] CREATININEon 08-25-2021 Creatinine [Mass/Vol] 1.92 mg/dL Critically high 0.70-1.30 [facility] Comment on above: Performed By: #### C MP, LIPID, TSH #### [facility] [address] [place] [address] Dr. Hugh Landis EGFR-AF WALLISIAN 44 mL/min/1.73m2 Critically low >=60 [facility] Comment on above: Performed By: #### C MP, LIPID, TSH #### [facility] [address] [place] [address] Dr. Hugh Landis EGFR-NON AF WALLISIAN 36 mL/min/1.73m2 Critically low >=60 [facility] Comment on above: Performed By: #### C MP, LIPID, TSH #### [facility] [address] [address] [address] Hugh Landis CTA CHEST WO W [...] OBIE TSE Date: 2021-08-25 10:16 Normal [facility] CBC AUTO DIFFon 08-18-2021 BASO # 0.0 103/ul Normal 0.0-0.1 [facility] Comment on above: Performed By: #### C MP, LIPID, TSH #### [facility] [address] [address] [address] Hugh Landis Basophils/100 WBC (Bld) 0.4 % Normal 0.2-2.0 [facility] Comment on above: Performed By: #### C MP, LIPID, TSH #### [facility] [address] [address] [address] Hugh Landis EO # 0.1 103/ul Normal 0.0-0.7 [facility] Comment on above: Performed By: #### C MP, LIPID, TSH #### [facility] [address] [address] [address] Hugh Landis Eosinophils/100 WBC (Bld) 1.8 % Normal 0.9-7.0 [facility] Comment on above: Performed By: #### C MP, LIPID, TSH #### [facility] [address] [place] [address] Dr. Hugh Landis Erythrocyte distribution width (RBC) [Ratio] 13.3 % Normal 11.0-15.0 [facility] Comment on above: Performed By: #### C MP, LIPID, TSH #### [facility] [address] [place] [address] Dr. Hugh Landis Hematocrit (Bld) [Volume fraction] 34.7 % Critically low 42.0-54.0 [facility] Comment on above: Performed By: #### C MP, LIPID, TSH #### [facility] [address] [place] [address] Dr. Hugh Landis Hemoglobin (Bld) [Mass/Vol] 11.3 g/dL Critically low 14.0-18.0 [facility] Comment on above: Performed By: #### C MP, LIPID, TSH #### [facility] [address] [place] [address] Dr. Hugh Landis IG # 0.05 10e3/ul Critically high 0.00-0.03 [facility] Comment on above: Performed By: #### C MP, LIPID, TSH #### [facility] [address] [place] [address] Dr. Hugh Landis IG % 0.7 % Critically high 0.0-0.[address] [facility] Comment on above: Performed By: #### C MP, LIPID, TSH #### [facility] [address] [place] [address] Dr. Hugh Landis LYMPH # 1.1 103/ul Critically low 1.2-3.8 [facility] Comment on above: Performed By: #### C MP, LIPID, TSH #### [facility] [address] [place] [address] Dr. Hugh Landis Lymphocytes/100 WBC (Bld) 16.0 % Critically low 20.5-60.0 [facility] Comment on above: Performed By: #### C MP, LIPID, TSH #### [facility] [address] [place] [address] Dr. Hugh Landis MANUAL DIFF REQ NO Normal [facility] Comment on above: Performed By: #### C MP, LIPID, TSH #### [facility] [address] [place] [address] Dr. Hugh Landis MCH (RBC) [Entitic mass] 29.7 pg Normal 25.9-34.0 [facility] Comment on above: Performed By: #### C MP, LIPID, TSH #### [facility] [address] [place] [address] Dr. Hugh Landis MCHC (RBC) [Mass/Vol] 32.6 g/dL Normal 29.9-35.2 [facility] Comment on above: Performed By: #### C MP, LIPID, TSH #### [facility] [address] [place] [address] Dr. Hugh Landis MCV (RBC) [Entitic vol] 91.3 fL Normal 80.0-94.0 [facility] Comment on above: Performed By: #### C MP, LIPID, TSH #### [facility] [address] [place] [address] Dr. Hugh Lanids MONO # 0.7 103/ul Normal 0.3-0.8 [facility] Comment on above: Performed By: #### C MP, LIPID, TSH #### [facility] [address] [place] [address] Dr. Hugh Landis Monocytes/100 WBC (Bld) 9.7 % Normal 1.7-12.0 [facility] Comment on above: Performed By: #### C MP, LIPID, TSH #### [facility] [address] [place] [address] Dr. Hugh Landis NEUT # 4.9 103/ul Normal 1.4-6.5 [facility] Comment on above: Performed By: #### C MP, LIPID, TSH #### [facility] [address] [place] [address] Dr. Hugh Landis Neutrophils/100 WBC (Bld) 71.4 % Normal 43.0-75.0 [facility] Comment on above: Performed By: #### C MP, LIPID, TSH #### [facility] [address] [address] [address] Hugh Landis Platelet mean volume (Bld) [Entitic vol] 9.0 fL Critically low 9.5-13.5 [facility] Comment on above: Performed By: #### C MP, LIPID, TSH #### [facility] [address] [address] [address] Hugh Landis PLT 264 103/ul Normal 150-450 [facility] Comment on above: Performed By: #### C MP, LIPID, TSH #### [facility] [address] [address] [address] Hugh Landis RBC 3.80 106/ul Critically low 4.70-6.10 [facility] Comment on above: Performed By: #### C MP, LIPID, TSH #### [facility] [address] [place] [address] Dr. Hugh Landis WBC 6.8 103/ul Normal 4.0-11.0 [facility] Comment on above: Performed By: #### C MP, LIPID, TSH #### [facility] [address] [place] [address] Dr. Hugh Landis PROF 14(COMP METB)on 022 Albumin [Mass/Vol] 3.5 g/dL Normal 3.4-5.0 [facility] Comment on above: Performed By: #### U TOMAS, TSH, CMP, LIPID, T7 #### [facility] [address] [place] [address] Dr. Hugh Landis Albumin/Globulin [Mass ratio] 0.8 {ratio} Normal [facility] Comment on above: Performed By: #### U TOMAS, TSH, CMP, LIPID, T7 #### [facility] [address] [place] [address] Dr. Hugh Landis ALP [Catalytic activity/Vol] 63 U/L Normal 46-116 [facility] Comment on above: Performed By: #### U TOMAS, TSH, CMP, LIPID, T7 #### [facility] [address] [address] [address] Hugh Landis ALT [Catalytic activity/Vol] 26 U/L Normal 16-63 [facility] Comment on above: Performed By: #### U TOMAS, TSH, CMP, LIPID, T7 #### [facility] [address] [address] [address] Hugh Landis Anion gap [Moles/Vol] 12.7 mmol/L Normal [facility] Comment on above: Performed By: #### U TOMAS, TSH, CMP, LIPID, T7 #### [facility] [address] [address] [address] Hugh Landis AST [Catalytic activity/Vol] 14 U/L Critically low 15-37 [facility] Comment on above: Performed By: #### U TOMAS, TSH, CMP, LIPID, T7 #### [facility] [address] [address] [address] Hugh Landis Bilirubin [Mass/Vol] 0.3 mg/dL Normal 0.2-1.0 [facility] Comment on above: Performed By: #### U TOMAS, TSH, CMP, LIPID, T7 #### [facility] [address] [address] [address] Hugh Landis Calcium [Mass/Vol] 9.2 mg/dL Normal 8.5-10.1 [facility] Comment on above: Performed By: #### U TOMAS, TSH, CMP, LIPID, T7 #### [facility] [address] [address] [address] Hugh Landis Chloride [Moles/Vol] 105 mmol/L Normal 98-107 [facility] Comment on above: Performed By: #### U TOMAS, TSH, CMP, LIPID, T7 #### [facility] [address] [address] [address] Hugh Landis CO2 [Moles/Vol] 25.5 mmol/L Normal 21.0-32.0 [facility] Comment on above: Performed By: #### U TOMAS, TSH, CMP, LIPID, T7 #### [facility] [address] [address] [address] Hugh Landis Creatinine [Mass/Vol] 2.46 mg/dL Critically high 0.70-1.30 [facility] Comment on above: Performed By: #### U TOMAS, TSH, CMP, LIPID, T7 #### [facility] [address] [address] [address] Hugh Landis EGFR-AF WALLISIAN 33 mL/min/1.73m2 Critically low >=60 [facility] Comment on above: Performed By: #### U TOMAS, TSH, CMP, LIPID, T7 #### [facility] [address] [address] [address] Hugh Landis EGFR-NON AF WALLISIAN 27 mL/min/1.73m2 Critically low >=60 [facility] Comment on above: Performed By: #### U TOMAS, TSH, CMP, LIPID, T7 #### [facility] [address] [address] [address] Hugh Landis Globulin (S) [Mass/Vol] 4.5 g/dL Normal [facility] Comment on above: Performed By: #### U TOMAS, TSH, CMP, LIPID, T7 #### [facility] [address] [address] [address] Hugh Landis Glucose [Mass/Vol] 119 mg/dL Critically high 74-106 T [facility] Comment on above: Performed By: #### U TOMAS, TSH, CMP, LIPID, T7 #### [facility] [address] [address] [address] Hugh Landis Potassium [Moles/Vol] 4.2 mmol/L Normal 3.5-5.1 [facility] Comment on above: Performed By: #### U TOMAS, TSH, CMP, LIPID, T7 #### [facility] [address] [address] [address] Hugh Landis Protein [Mass/Vol] 8.0 g/dL Normal 6.4-8.2 [facility] Comment on above: Performed By: #### U TOMAS, TSH, CMP, LIPID, T7 #### [facility] [address] [address] [address] Hugh Landis Sodium [Moles/Vol] 139 mmol/L Normal 136-145 [facility] Comment on above: Performed By: #### U TOMAS, TSH, CMP, LIPID, T7 #### [facility] [address] [address] [address] Hugh Landis Urea nitrogen [Mass/Vol] 49.0 mg/dL Critically high 7.0-18.0 [facility] Comment on above: Performed By: #### U TOMAS, TSH, CMP, LIPID, T7 #### [facility] [address] [id number] Hugh Landis Urea nitrogen/Creatinine [Mass ratio] 19.9 mg/mg Normal [facility] Comment on above: Performed By: #### U TOMAS, TSH, CMP, LIPID, T7 #### [facility] [address] [address] [address] Hugh Landis TESTOSTERONE, FREE,DIRECT, T OTALon 08-14-2021 Free Testosterone(Direct) 5.9 pg/mL Critically low 7.2-24.0 [facility] Comment on above: Result Comment: Perf ormed at: BN Performed By: #### B MP #### [facility] [address] [place] [address] Dr. Hugh Landis Testosterone [Mass/Vol] 392 ng/dL Normal 264-916 [facility] Comment on above: Result Comment: Adul t male reference interval is based on a population of healthy nonobese males (BMI <30) between 19 and 39 years old. Gavi, et.al. JCEM 2017,102;[id number]. PMID: [id number]. Performed at: CB Performed By: #### B MP #### [facility] [address] [place], [place] [id number] Dr. Hugh Landis VITAMIN B1 (THIAMINE)on 07-27 Vit. B1, Whole Blood 145.1 nmol/L Normal 66.5-200.0 [facility] Comment on above: Performed By: #### C MP, LIPID, TSH #### [facility] [id number] Hugh Landis VITAMIN Aon 08-13-2021 Vitamin A 82.7 ug/dL Critically high 20.1-62.[address] [facility] Comment on above: Result Comment: Refe [...] Administration. Performed By: #### P T #### [facility] [address] [place] [address] Dr. Hugh Landis ZINC SERUM OR PLASMAon 08-10 Zinc, Plasma or Serum 78 ug/dL Normal 44-115 [facility] Comment on above: Result Comment: Dete ction Limit = 5 Performed By: #### C MP, LIPID, TSH #### [facility] [address] [place] [address] Dr. Hugh Landis FOLATE ([facility])on Folate 12.9 ng/mL Normal >3.0 [facility] Comment on above: Result Comment: A se rum folate concentration of less than 3.1 ng/mL is considered to represent clinical deficiency. Performed By: #### P TT #### [facility] [address] [place] [address] Dr. Hugh Landis PTH INTACTon 08-09-2021 PTH, Intact 29 pg/mL Normal 15-65 [facility] Comment on above: Performed By: #### P TT #### [facility] [address] [place] [address] Dr. Hugh Landis CBC AUTO DIFFon 08-08-2021 BASO # 0.0 103/ul Normal 0.0-0.1 [facility] Comment on above: Performed By: #### C MP, LIPID, TSH #### [facility] [address] [place] [address] Dr. Hugh Landis Basophils/100 WBC (Bld) 0.6 % Normal 0.2-2.0 [facility] Comment on above: Performed By: #### C MP, LIPID, TSH #### [facility] [address] [place] [address] Dr. Hugh Landis EO # 0.2 103/ul Normal 0.0-0.7 [facility] Comment on above: Performed By: #### C MP, LIPID, TSH #### [facility] [address] [place] [address] Dr. Hugh Landis Eosinophils/100 WBC (Bld) 2.2 % Normal 0.9-7.0 [facility] Comment on above: Performed By: #### C MP, LIPID, TSH #### [facility] [address] [place] [address] Dr. Hugh Landis Erythrocyte distribution width (RBC) [Ratio] 13.4 % Normal 11.0-15.0 [facility] Comment on above: Performed By: #### C MP, LIPID, TSH #### [facility] [address] [place] [address] Dr. Hugh Landis Hematocrit (Bld) [Volume fraction] 38.2 % Critically low 42.0-54.0 [facility] Comment on above: Performed By: #### C MP, LIPID, TSH #### [facility] [address] [place] [address] Dr. Hugh Landis Hemoglobin (Bld) [Mass/Vol] 11.8 g/dL Critically low 14.0-18.0 [facility] Comment on above: Performed By: #### C MP, LIPID, TSH #### [facility] [address] [place] [address] Dr. Hugh Landis IG # 0.03 10e3/ul Normal 0.00-0.03 [facility] Comment on above: Performed By: #### C MP, LIPID, TSH #### [facility] [address] [place] [address] Dr. Hugh Landis IG % 0.4 % Normal 0.0-0.5 [facility] Comment on above: Performed By: #### C MP, LIPID, TSH #### [facility] [address] [place] [address] Dr. Hugh Landis LYMPH # 1.0 103/ul Critically low 1.2-3.8 [facility] Comment on above: Performed By: #### C MP, LIPID, TSH #### [facility] [address] [place] [address] Dr. Hugh Landis Lymphocytes/100 WBC (Bld) 14.9 % Critically low 20.5-60.0 [facility] Comment on above: Performed By: #### C MP, LIPID, TSH #### [facility] [address] [place] [address] Dr. Hugh Landis MANUAL DIFF REQ NO Normal [facility] Comment on above: Performed By: #### C MP, LIPID, TSH #### [facility] [address] [place] [address] Dr. Hugh Landis MCH (RBC) [Entitic mass] 28.5 pg Normal 25.9-34.0 [facility] Comment on above: Performed By: #### C MP, LIPID, TSH #### [facility] [address] [place] [address] Dr. Hugh Landis MCHC (RBC) [Mass/Vol] 30.9 g/dL Normal 29.9-35.2 [facility] Comment on above: Performed By: #### C MP, LIPID, TSH #### [facility] [address] [place] [address] Dr. Hugh Landis MCV (RBC) [Entitic vol] 92.3 fL Normal 80.0-94.0 [facility] Comment on above: Performed By: #### C MP, LIPID, TSH #### [facility] [address] [place] [address] Dr. Hugh Landis MONO # 0.7 103/ul Normal 0.3-0.8 [facility] Comment on above: Performed By: #### C MP, LIPID, TSH #### [facility] [address] [place] [address] Dr. Hugh Landis Monocytes/100 WBC (Bld) 10.6 % Normal 1.7-12.0 [facility] Comment on above: Performed By: #### C MP, LIPID, TSH #### [facility] [address] [place] [address] Dr. Hugh Landis NEUT # 4.9 103/ul Normal 1.4-6.5 [facility] Comment on above: Performed By: #### C MP, LIPID, TSH #### [facility] [address] [place] [address] Dr. Hugh Landis Neutrophils/100 WBC (Bld) 71.3 % Normal 43.0-75.0 [facility] Comment on above: Performed By: #### C MP, LIPID, TSH #### [facility] [address] [place] [address] Dr. Hugh Landis Platelet mean volume (Bld) [Entitic vol] 9.4 fL Critically low 9.5-13.5 [facility] Comment on above: Performed By: #### C MP, LIPID, TSH #### [facility] [address] [place] [address] Dr. Hugh Landis PLT 249 103/ul Normal 150-450 [facility] Comment on above: Performed By: #### C MP, LIPID, TSH #### [facility] [address] [place] [address] Dr. Huhg Landis RBC 4.14 106/ul Critically low 4.70-6.10 [facility] Comment on above: Performed By: #### C MP, LIPID, TSH #### [facility] [address] [place] [address] Dr. Hugh Landis WBC 6.9 103/ul Normal 4.0-11.0 [facility] Comment on above: Performed By: #### C MP, LIPID, TSH #### [facility] [address] [place] [address] Dr. Hugh Landis FERRITINon 08-08-2021 Ferritin [Mass/Vol] 154.0 ng/mL Normal 26.0-388.0 [facility] Comment on above: Performed By: #### C MP, LIPID, TSH #### [facility] [address] [place] [address] Dr. Hugh Landis GLYCOHEMOGLOBIN A1Con 2021 ADA RECOMMENDATION SEE BELOW Normal [facility] Comment on above: Result Comment: ADA RECOMMENDED LIMIT 4.0 - 6.0 ADA THERAPEUTIC TARGET < 7.0 ACTION SUGGESTED > 7.0 Performed By: #### P T #### [facility] [address] [address] [address] Hugh Landis Glucose [Mass/Vol] 140 mg/dL Normal [facility] Comment on above: Performed By: #### P T #### [facility] [address] [address] [address] Hugh Landis HbA1c (Bld) [Mass fraction] 6.5 % Critically high 4.5-6.2 [facility] Comment on above: Performed By: #### P T #### [facility] [address] [address] [address] Hugh Landis IRON AND TIBCon 08-08-2021 % SATURATION 13.6 % Normal [facility] Comment on above: Performed By: #### C MP, LIPID, TSH #### [facility] [address] [address] [address] Hugh Landis Iron [Mass/Vol] 45.0 ug/dL Critically low 65.0-175.0 [facility] Comment on above: Performed By: #### C MP, LIPID, TSH #### [facility] [address] [address] [address] Hugh Landis TIBC DIRECT 332.0 ug/dL Normal 250.0-450.0 [facility] Comment on above: Performed By: #### C MP, LIPID, TSH #### [facility] [address] [address] [address] Hugh Landis LIPID PROFILEon 08-08-2021 CHOL-HDL RATIO NORM SEE BELOW Normal [facility] Comment on above: Result Comment: 3.3 - 4.4 LOW RISK 4.4 - 7.1 AVERAGE RISK 7.1 - 11.0 MODERATE RISK >11.0 HIGH RISK Performed By: #### C MP, LIPID, TSH #### [facility] [address] [address] [address] Hugh Landis Cholesterol [Mass/Vol] 187 mg/dL Normal <=200 [facility] Comment on above: Performed By: #### C MP, LIPID, TSH #### [facility] [address] [address] [address] Hugh Landis Cholesterol in HDL [Mass/Vol] 51 mg/dL Normal 40-60 [facility] Comment on above: Performed By: #### C MP, LIPID, TSH #### [facility] [address] [address] [address] Hugh Landis Cholesterol in LDL [Mass/Vol] 101.8 mg/dL Normal [facility] Comment on above: Performed By: #### C MP, LIPID, TSH #### [facility] [address] [address] [address] Hugh Landis Cholesterol.total/Ch olesterol in HDL [Mass ratio] 3.7 {ratio} Normal [facility] Comment on above: Performed By: #### C MP, LIPID, TSH #### [facility] [address] [address] [address] Hugh Landis HDL NORMAL > or = 60 mg/dl - LO W CARDIOVASCULAR RISK <40 mg/dl - HIGH CARDIOVASCULAR RISK Normal [facility] Comment on above: Performed By: #### C MP, LIPID, TSH #### [facility] [address] [address] [address] Hugh Landis LDL CALC NORMAL SEE BELOW Normal [facility] Comment on above: Result Comment: <100 mg/dl OPTIMAL 100 - 129 mg/dl NEAR OR ABOVE OPTIMAL 130 - 159 mg/dl BORDERLINE HIGH 160 - 189 mg/dl HIGH >190 mg/dl VERY HIGH Performed By: #### C MP, LIPID, TSH #### [facility] [address] [address] [address] Hugh Landis Triglyceride [Mass/Vol] 171 mg/dL Critically high <=150 [facility] Comment on above: Performed By: #### C MP, LIPID, TSH #### [facility] [address] [address] [address] Hugh Landis VLDL CALC 34.2 mg/dL Normal [facility] Comment on above: Performed By: #### C MP, LIPID, TSH #### [facility] [address] [address] [address] Hugh Landis PROF 14(COMP METB)on 022 Albumin [Mass/Vol] 3.6 g/dL Normal 3.4-5.0 [facility] Comment on above: Performed By: #### C MP, LIPID, TSH #### [facility] [address] [address] [address] Hugh Landis Albumin/Globulin [Mass ratio] 0.8 {ratio} Normal [facility] Comment on above: Performed By: #### C MP, LIPID, TSH #### [facility] [address] [address] [address] Hugh Landis ALP [Catalytic activity/Vol] 64 U/L Normal 46-116 [facility] Comment on above: Performed By: #### C MP, LIPID, TSH #### [facility] [address] [address] [address] Hugh Landis ALT [Catalytic activity/Vol] 28 U/L Normal 16-63 [facility] Comment on above: Performed By: #### C MP, LIPID, TSH #### [facility] [address] [address] [address] Hugh Landis Anion gap [Moles/Vol] 15.0 mmol/L Normal [facility] Comment on above: Performed By: #### C MP, LIPID, TSH #### [facility] [address] [address] [address] Hugh Landis AST [Catalytic activity/Vol] 14 U/L Critically low 15-37 [facility] Comment on above: Performed By: #### C MP, LIPID, TSH #### [facility] [address] [address] [address] Hugh Landis Bilirubin [Mass/Vol] 0.5 mg/dL Normal 0.2-1.0 [facility] Comment on above: Performed By: #### C MP, LIPID, TSH #### [facility] [address] [address] [address] Hugh Landis Calcium [Mass/Vol] 9.6 mg/dL Normal 8.5-10.1 [facility] Comment on above: Performed By: #### C MP, LIPID, TSH #### [facility] [address] [address] [address] Hugh Landis Chloride [Moles/Vol] 105 mmol/L Normal 98-107 [facility] Comment on above: Performed By: #### C MP, LIPID, TSH #### [facility] [address] [address] [address] Hugh Landis CO2 [Moles/Vol] 23.5 mmol/L Normal 21.0-32.0 [facility] Comment on above: Performed By: #### C MP, LIPID, TSH #### [facility] [address] [address] [address] Hugh Landis Creatinine [Mass/Vol] 2.69 mg/dL Critically high 0.70-1.30 [facility] Comment on above: Performed By: #### C MP, LIPID, TSH #### [facility] [address] [address] [address] Hugh Landis EGFR-AF WALLISIAN 30 mL/min/1.73m2 Critically low >=60 [facility] Comment on above: Performed By: #### C MP, LIPID, TSH #### [facility] [address] [address] [address] Hugh Landis EGFR-NON AF WALLISIAN 25 mL/min/1.73m2 Critically low >=60 [facility] Comment on above: Performed By: #### C MP, LIPID, TSH #### [facility] [address] [address] [address] Hugh Landis Globulin (S) [Mass/Vol] 4.3 g/dL Normal [facility] Comment on above: Performed By: #### C MP, LIPID, TSH #### [facility] [address] [address] [address] Hugh Landis Glucose [Mass/Vol] 80 mg/dL Normal 74-106 [facility] Comment on above: Performed By: #### C MP, LIPID, TSH #### [facility] [address] [address] [address] Hugh Landis Potassium [Moles/Vol] 5.5 mmol/L Critically high 3.5-5.1 [facility] Comment on above: Performed By: #### C MP, LIPID, TSH #### [facility] [address] [place] [address] Dr. Hugh Landis Protein [Mass/Vol] 7.9 g/dL Normal 6.4-8.2 [facility] Comment on above: Performed By: #### C MP, LIPID, TSH #### [facility] [address] [place] [address] Dr. Hugh Landis Sodium [Moles/Vol] 138 mmol/L Normal 136-145 [facility] Comment on above: Performed By: #### C MP, LIPID, TSH #### [facility] [address] [place] [address] Dr. Hugh Landis Urea nitrogen [Mass/Vol] 47.0 mg/dL Critically high 7.0-18.0 [facility] Comment on above: Performed By: #### C MP, LIPID, TSH #### [facility] [address] [place] [address] Dr. Hugh Landis Urea nitrogen/Creatinine [Mass ratio] 17.5 mg/mg Normal [facility] Comment on above: Performed By: #### C MP, LIPID, TSH #### [facility] [address] [place] [address] Dr. Hugh Landis TSHon 08-08-2021 TSH 1.069 uIU/mL Normal 0.358-3.740 [facility] Comment on above: Performed By: #### C MP, LIPID, TSH #### [facility] [address] [place] [address] Dr. Hugh Landis TSH RANGE SEE BELOW Normal [facility] Comment on above: Result Comment: <0.3 4 UIU/ml HYPERTHYROID 0.34-5.60 UIU/ml EUTHYROID >5.60 UIU/ml HYPOTHYROID Performed By: #### C MP, LIPID, TSH #### [facility] [address] [place] [address] Dr. Hugh Landis VITAMIN B12on 08-08-2021 Cobalamin (Vitamin B12) [Mass/Vol] 336.0 pg/mL Normal 193.0-986.0 [facility] Comment on above: Performed By: #### C MP, LIPID, TSH #### [facility] [address] [place], [place] [id number] Dr. Hugh Landis VITAMIN D 25 OHon 08-08-2021 VIT D 25-OH 36.6 ng/mL Normal [facility] Comment on above: Performed By: #### C MP, LIPID, TSH #### [facility] [address] [place], [place] [id number] Dr. Hugh Landis VIT D RANGES SEE BELOW Normal [facility] Comment on above: Result Comment: <20 ng/mL Vit D deficient 20 - <30 ng/mL Vit D insufficient 30 - 100 ng/mL Vit D sufficient >100 ng/mL Potential Toxicity Performed By: #### C MP, LIPID, TSH #### [facility] [address] [place] [address] Dr. Hugh Landis KNEE RIGHT 3 Son 2 KNEE RIGHT 3 [facility] Department of Radiology [address] [place] [id number] ======== Patient Name: SUKHDEEP SIMENTAL : [...] disruption. Electronically signed: Cole Richmond. Transcribed by: [email or web address], User Resident: Electronically Signed by: COLE RICHMOND @ 07/23/2021 10:50 PM Normal [facility] Comment on above: Order Comment: Evalu ate CBCon 07-18-2021 Erythrocyte distribution width (RBC) [Ratio] 13.5 % Normal 11.8-14.4 [facility] Comment on above: Performed By: #### C BC, PT, PTT, BMP #### [facility] [address] [place] [id number] [employer] Operator: Good Melendez MD #### ANICOT #### [facility] [address], [place] [id number] [employer] Operator: Troy Link MD Hematocrit (Bld) [Volume fraction] 39.1 % Low 40.7-50.3 [facility] Comment on above: Performed By: #### C BC, PT, PTT, BMP #### [facility] [address] [place] [address] [id number] [employer] Operator: Good Melendez MD #### ANICOT #### [facility] [address], [place] [id number] [employer] Operator: Troy Link MD Hemoglobin (Bld) [Mass/Vol] 12.3 g/dL Low 13.0-17.0 [facility] Comment on above: Performed By: #### C BC, PT, PTT, BMP #### [address] [id number] [employer] Operator: Good Melendez MD #### ANICOT #### [facility] [address], [place] [id number] [employer] Operator: Troy Link MD MCH (RBC) [Entitic mass] 28.8 pg Normal 25.2-33.5 [facility] Comment on above: Performed By: #### C BC, PT, PTT, BMP #### [address] [id number] [employer] Operator: Good Melendez MD #### ANICOT #### [facility] [address], [place] [id number] [employer] Operator: Troy Link MD MCHC (RBC) [Mass/Vol] 31.5 g/dL Normal 28.4-34.8 [facility] Comment on above: Performed By: #### C BC, PT, PTT, BMP #### [address] [id number] [employer] Operator: Good Melendez MD #### ANICOT #### [facility] [address], [place] [id number] [employer] Operator: Troy Link MD MCV (RBC) [Entitic vol] 91.6 fL Normal 82.6-102.9 [facility] Comment on above: Performed By: #### C BC, PT, PTT, BMP #### [address] [id number] [employer] Operator: Good Melendez MD #### ANICOT #### [facility] [address] [place] [address] [employer] Operator: Troy Link MD NRBC Automated 0.0 per 100 WBC Normal 0.0 [facility] Comment on above: Performed By: #### C BC, PT, PTT, BMP #### [address] [address] [employer] Operator: Good Melendez MD #### ANICOT #### [facility] [address] [place] [address] [employer] Operator: Troy Link MD Platelet mean volume (Bld) [Entitic vol] 9.7 fL Normal 8.1-13.5 [facility] Comment on above: Performed By: #### C BC, PT, PTT, BMP #### [place] [address] [employer] Operator: Good Melendez MD #### ANICOT #### [facility] [address] [place] [address] [employer] Operator: Troy Link MD Platelets (Bld) [#/Vol] 190 10*3/uL Normal 138-453 [facility] Comment on above: Performed By: #### C BC, PT, PTT, BMP #### [address] [address] [employer] Operator: Good Melendez MD #### ANICOT #### [facility] [address] [place] [address] [employer] Operator: Troy Link MD RBC (Bld) [#/Vol] 4.27 10*6/uL Normal 4.21-5.77 [facility] Comment on above: Performed By: #### C BC, PT, PTT, BMP #### [address] [id number] [employer] Operator: Good Melendez MD #### ANICOT #### [facility] [address], [place] [id number] [employer] Operator: Troy Link MD WBC (Bld) [#/Vol] 8.7 10*3/uL Normal 3.5-11.3 [facility] Comment on above: Performed By: #### C BC, PT, PTT, BMP #### [facility] [address] [place] [address] [employer] Operator: Good Melendez MD #### ANICOT #### [facility] [address], [place] [id number] [employer] Operator: Troy Link MD APTTon 07-17-2021 aPTT Coag (Bld) [Time] 20.8 s Normal 20.5-30.5 [facility] Comment on above: Result Comment: IV Heparin Therapy Range: 48.6-77.8 Performed By: #### C BC, PT, PTT, BMP #### [address] [address] [employer] Operator: Good Melendez MD #### ANICOT #### [facility] [address], [place] [id number] [employer] Operator: Troy Link MD aPTT Coag (Bld) [Time] 37.9 s High 20.5-30.5 [facility] Comment on above: Result Comment: IV Heparin Therapy Range: 48.6-77.8 Performed By: #### C BC, PT, PTT, BMP #### [address] [address] [employer] Operator: Good Melendez MD #### ANICOT #### [facility] [address], [place] [id number] [employer] Operator: Troy Link MD aPTT Coag (Bld) [Time] 78.1 s High 20.5-30.5 [facility] Comment on above: Result Comment: IV Heparin Therapy Range: 48.6-77.8 Performed By: #### C BC, PT, PTT, BMP #### [address] [id number] [employer] Operator: Good Melendez MD #### ANICOT #### [facility] [address], [place] [id number] [employer] Operator: Troy Link MD Basic Metab w/rfx MGon 07-17 (cont.) Normal [facility] Comment on above: Result Comment: Aver age GFR for 50-59 years old: 93 mL/min/1.73sq m Chronic Kidney Disease: <60 mL/min/1.73sq m Kidney failure: <15 mL/min/1.73sq m eGFR calculated using average adult body mass. Additional eGFR calculator available at: http://www.MyNewDe[employer].com.[employer] labs/multiple_crcl_2011.htm Performed By: #### C BC, PT, PTT, BMP #### [address] [id number] [employer] Operator: Good Melendez MD #### ANAPARNAT #### [facility] [address] [place] [address] [employer] Operator: Troy Link MD Anion gap [Moles/Vol] 9 mmol/L Normal 9-17 [facility] Comment on above: Performed By: #### C BC, PT, PTT, BMP #### [facility] [employer] [address] [place] [address] [employer] Operator: Good Melendez MD #### ANICOT #### [facility] [address] [place] [address] [employer] Operator: Troy Link MD Calcium [Mass/Vol] 9.3 mg/dL Normal 8.6-10.4 [facility] Comment on above: Performed By: #### C BC, PT, PTT, BMP #### [address] [address] [employer] Operator: Good Melendez MD #### ANICOT #### [facility] [address] [place] [address] [employer] Operator: Troy Link MD Chloride [Moles/Vol] 106 mmol/L Normal 98-107 [facility] Comment on above: Performed By: #### C BC, PT, PTT, BMP #### [address] [address] [employer] Operator: Good Melendez MD #### ANICOT #### [address] [address] [employer] Operator: Troy Link MD CO2 [Moles/Vol] 23 mmol/L Normal 20-31 [facility] Comment on above: Performed By: #### C BC, PT, PTT, BMP #### [address] [address] [employer] Operator: Good Melendez MD #### ANICOT #### [facility] [address] [place] [address] [employer] Operator: Troy Link MD Creatinine [Mass/Vol] 1.40 mg/dL High 0.70-1.20 [facility] Comment on above: Performed By: #### C BC, PT, PTT, BMP #### [address] [address] [employer] Operator: Good Melendez MD #### ANICOT #### [facility] [address] [place] [address] [employer] Operator: Troy Link MD GFR, Amer >60 Normal >60 [facility] Comment on above: Performed By: #### C BC, PT, PTT, BMP #### [address] [place] [address] [employer] Operator: Good Melendez MD #### ANICOT #### [facility] [address] [place] [address] [employer] Operator: Troy Link MD GFR,non Amer 52 mL/min Low >60 [facility] Comment on above: Performed By: #### C BC, PT, PTT, BMP #### [address] [address] [employer] Operator: Good Melendez MD #### ANICOT #### [facility] [address] [place] [address] [employer] Operator: Troy Link MD Glucose [Mass/Vol] 170 mg/dL High 70-99 [facility] Comment on above: Performed By: #### C BC, PT, PTT, BMP #### [address] [address] [employer] Operator: Good Melendez MD #### ANICOT #### [facility] [address] [place] [address] [employer] Operator: Troy Link MD Potassium [Moles/Vol] 4.6 mmol/L Normal 3.7-5.3 [facility] Comment on above: Performed By: #### C BC, PT, PTT, BMP #### [address] [address] [employer] Operator: Good Melendez MD #### ANICOT #### [facility] [address] [place] [address] [employer] Operator: Troy Link MD Sodium [Moles/Vol] 138 mmol/L Normal 135-144 [facility] Comment on above: Performed By: #### C BC, PT, PTT, BMP #### [facility] [employer] [address] [place] [address] [employer] Operator: Good Melendez MD #### ANICOT #### [facility] [address] [place] [address] [employer] Operator: Troy Link MD Urea nitrogen [Mass/Vol] 33 mg/dL High 6-20 [facility] Comment on above: Performed By: #### C BC, PT, PTT, BMP #### [address] [id number] [employer] Operator: Good Melendez MD #### ANICOT #### [facility] [address] [place] [address] [employer] Operator: Troy Link MD Basic Metabolic Profon 07-17 (cont.) Normal [facility] Comment on above: Result Comment: Aver age GFR for 50-59 years old: 93 mL/min/1.73sq m Chronic Kidney Disease: <60 mL/min/1.73sq m Kidney failure: <15 mL/min/1.73sq m eGFR calculated using average adult body mass. Additional eGFR calculator available at: http://www.MyNewDeals.com.com/multiple_crcl_2011.htm Performed By: #### C BC, PT, PTT, BMP #### [address] [id number] [employer] Operator: Good Melendez MD #### ANICOT #### [facility] [address], [place] [id number] [employer] Operator: Troy Link MD Anion gap [Moles/Vol] 8 mmol/L Low 9-17 [facility] Comment on above: Performed By: #### C BC, PT, PTT, BMP #### [address] [address] [employer] Operator: Good Melendez MD #### ANICOT #### [facility] [address], [place] [id number] [employer] Operator: Troy Link MD Calcium [Mass/Vol] 9.5 mg/dL Normal 8.6-10.4 [facility] Comment on above: Performed By: #### C BC, PT, PTT, BMP #### [address] [address] [employer] Operator: Good Melendez MD #### ANICOT #### [facility] [address], [place] [id number] [employer] Operator: Troy Link MD Chloride [Moles/Vol] 104 mmol/L Normal 98-107 [facility] Comment on above: Performed By: #### C BC, PT, PTT, BMP #### [address] [id number] [employer] Operator: Good Melendez MD #### ANICOT #### [facility] [address], [place] [id number] [employer] Operator: Troy Link MD CO2 [Moles/Vol] 23 mmol/L Normal 20-31 [facility] Comment on above: Performed By: #### C BC, PT, PTT, BMP #### [address] [address] [employer] Operator: Good Melendez MD #### ANICOT #### [facility] [address] [place] [address] [employer] Operator: Troy Link MD Creatinine [Mass/Vol] 1.34 mg/dL High 0.70-1.20 [facility] Comment on above: Performed By: #### C BC, PT, PTT, BMP #### [address] [address] [employer] Operator: Good Melendez MD #### ANICOT #### [facility] [address] [place] [address] [employer] Operator: Troy Link MD GFR, Amer >60 Normal >60 [facility] Comment on above: Performed By: #### C BC, PT, PTT, BMP #### [address] [id number] [employer] Operator: Good Melendez MD #### ANICOT #### [facility] [address], [place] [id number] [employer] Operator: Troy Link MD GFR,non Amer 55 mL/min Low >60 [facility] Comment on above: Performed By: #### C BC, PT, PTT, BMP #### [address] [id number] [employer] Operator: Good Melendez MD #### ANICOT #### [facility] [address] [place] [address] [employer] Operator: Troy Link MD Glucose [Mass/Vol] 136 mg/dL High 70-99 [facility] Comment on above: Performed By: #### C BC, PT, PTT, BMP #### [address] [id number] [employer] Operator: Good Melendez MD #### ANICOT #### [facility] [address] [place] [address] [employer] Operator: Troy Link MD Potassium [Moles/Vol] 4.7 mmol/L Normal 3.7-5.3 [facility] Comment on above: Performed By: #### C BC, PT, PTT, BMP #### [address] [address] [employer] Operator: Good Melendez MD #### ANICOT #### [facility] [address], [place] [id number] [employer] Operator: Troy Link MD Sodium [Moles/Vol] 135 mmol/L Normal 135-144 [facility] Comment on above: Performed By: #### C BC, PT, PTT, BMP #### [facility] [address] [place] [address] [employer] Operator: Good Melendez MD #### ANICOT #### [facility] [address] [place] [address] [employer] Operator: Troy Link MD Urea nitrogen [Mass/Vol] 31 mg/dL High 6-20 [facility] Comment on above: Performed By: #### C BC, PT, PTT, BMP #### [address] [address] [employer] Operator: Good Melendez MD #### ANICOT #### [facility] [address], [place] [id number] [employer] Operator: Troy Link MD Fibrinogenon 07-17-2021 Fibrinogen 404 mg/dL Normal 140-420 [facility] Comment on above: Performed By: #### C BC, PT, PTT, BMP #### [address] [address] [employer] Operator: Good Melendez MD #### ANICOT #### [facility] [address], [place] [id number] [employer] Operator: Troy Link MD Fibrinogen 395 mg/dL Normal 140-420 [facility] Comment on above: Performed By: #### C BC, PT, PTT, BMP #### [facility] [address] [place] [phone] [employer] Operator: Good Melendez MD #### ANICOT #### [facility] [address] [place] [address] [employer] Operator: Troy Link MD Hemoglobin A1Con 07-17-2021 Glucose [Mass/Vol] 169 mg/dL Normal [facility] Comment on above: Result Comment: The ADA and AACC recommend providing the estimated average glucose result to permit better patient understanding of their HBA1c result. Performed By: #### C BC, PT, PTT, BMP #### [facility] [address] [place] [address] [employer] Operator: Good Melendez MD #### ANICOT #### [facility] [address], [place] [id number] [employer] Operator: Troy Link MD HbA1c (Bld) [Mass fraction] 7.5 % High 4.0-6.0 [facility] Comment on above: Performed By: #### C BC, PT, PTT, BMP #### [facility] [address] [place] [address] [employer] Operator: Good Melendez MD #### ANICOT #### [facility] [address] [place] [address] [employer] Operator: Troy Link MD PTon 07-17-2021 INR Coag (PPP) [Relative time] 1.2 {INR} Normal [facility] Comment on above: Result Comment: Therapeutic Range: Moderate Anticoagulant Intensity: INR = 2.0-3.0 High Anticoagulant Intensity: INR = 2.5-3.5 Performed By: #### C BC, PT, PTT, BMP #### [facility] [employer] [address] [place] [address] Soyfreeze Operator: Good Melendez MD #### ANICOT #### [facility] [address], [place] [id number] Soyfreeze Operator: Troy Link MD PT Coag (PPP) [Time] 12.6 s High 9.1-12.3 [facility] Comment on above: Performed By: #### C BC, PT, PTT, BMP #### [facility] [address] [place] [address] Soyfreeze Operator: Good Melendez MD #### ANICOT #### [facility] [address], [place] [id number] Soyfreeze Operator: Troy Link MD Troponinon 07-17-2021 Troponin, High Sens 38 ng/L High 0-22 [facility] Comment on above: Result Comment: High Sensitivity Troponin values cannot be compared with other Troponin methodologies. Patients with high levels of Biotin oral intake (i.e >5mg/day) may have falsely decreased Troponin levels. Samples collected within 8 hours of biotin intake may require additional information for diagnosis. Performed By: #### C BC, PT, PTT, BMP #### [facility] [address] [place] [address] Soyfreeze Operator: Good Melendez MD #### ANICOT #### [facility] [address], [place] [id number] Soyfreeze Operator: Troy Link MD APTTon 07-16-2021 aPTT Coag (Bld) [Time] 51.1 s High 20.5-30.5 [facility] Comment on above: Result Comment: IV Heparin Therapy Range: 48.6-77.8 Performed By: #### C BC, PT, PTT, BMP #### [facility] [address] [place] [address] Soyfreeze Operator: Good Melendez MD #### ANICOT #### [facility] [address], [place] [id number] Soyfreeze Operator: Troy Link MD aPTT Coag (Bld) [Time] 31.1 s High 20.5-30.5 [facility] Comment on above: Result Comment: IV Heparin Therapy Range: 48.6-77.8 Performed By: #### C BC, PT, PTT, BMP #### [facility] [address] [place] [address] Soyfreeze Operator: Good Melendez MD #### ANICOT #### [facility] [address], [place] [id number] Soyfreeze Operator: Troy Link MD Brain Natri. Peptideon 07-16 Natriuretic peptide B (Bld) [Mass/Vol] 1492 pg/mL High <300 [facility] Comment on above: Result Comment: An age-independent cutoff point of 300 pg/ml has a 98% negative predictive value excluding acute heart failure. Performed By: #### C BC, PT, PTT, BMP #### [facility] [address] [place] [address] Soyfreeze Operator: Good Melendez MD #### ANICOT #### [facility] [address], [place] [id number] Soyfreeze Operator: Troy Link MD [facility] Erythrocyte distribution width (RBC) [Ratio] 13.6 % Normal 11.8-14.4 [facility] Comment on above: Performed By: #### C BC, PT, PTT, BMP #### [facility] [employer] [address] [place] [address] Soyfreeze Operator: Good Melendez MD #### ANICOT #### [facility] [address] [place] [address] Soyfreeze Operator: Troy Link MD Hematocrit (Bld) [Volume fraction] 40.3 % Low 40.7-50.3 [facility] Comment on above: Performed By: #### C BC, PT, PTT, BMP #### [facility] [employer] [address] [place] [address] Soyfreeze Operator: Good Melendez MD #### ANICOT #### [facility] [address] [place] [address] Soyfreeze Operator: Troy Link MD Hemoglobin (Bld) [Mass/Vol] 13.0 g/dL Normal 13.0-17.0 [facility] Comment on above: Performed By: #### C BC, PT, PTT, BMP #### [facility] [employer] [address] [place] [address] [phone] Soyfreeze Operator: Good Melendez MD #### ANICOT #### [facility] [address] [place] [address] Soyfreeze Operator: Troy Link MD MCH (RBC) [Entitic mass] 28.7 pg Normal 25.2-33.5 [facility] Comment on above: Performed By: #### C BC, PT, PTT, BMP #### [address] [address] Soyfreeze Operator: Good Melendez MD #### ANICOT #### [facility] [address] [place] [address] Soyfreeze Operator: Troy Link MD MCHC (RBC) [Mass/Vol] 32.3 g/dL Normal 28.4-34.8 [facility] Comment on above: Performed By: #### C BC, PT, PTT, BMP #### [address] [address] Soyfreeze Operator: Good Melendez MD #### ANICOT #### [address] [address] Soyfreeze Operator: Troy Link MD MCV (RBC) [Entitic vol] 89.0 fL Normal 82.6-102.9 [facility] Comment on above: Performed By: #### C BC, PT, PTT, BMP #### [address] [address] Soyfreeze Operator: Good Melendez MD #### ANICOT #### [facility] [address] [place] [address] Soyfreeze Operator: Troy Link MD NRBC Automated 0.0 per 100 WBC Normal 0.0 [facility] Comment on above: Performed By: #### C BC, PT, PTT, BMP #### [facility] [address] Soyfreeze Operator: Good Melendez MD #### ANICOT #### [facility] [address] [place] [address] Soyfreeze Operator: Troy Link MD Platelet mean volume (Bld) [Entitic vol] 9.6 fL Normal 8.1-13.5 [facility] Comment on above: Performed By: #### C BC, PT, PTT, BMP #### [address] [address] Soyfreeze Operator: Good Melendez MD #### ANICOT #### [facility] [address] [place] [address] Soyfreeze Operator: Troy Link MD Platelets (Bld) [#/Vol] 203 10*3/uL Normal 138-453 [facility] Comment on above: Performed By: #### C BC, PT, PTT, BMP #### [address] [address] Soyfreeze Operator: Good Melendez MD #### ANICOT #### [facility] [address] [place] [address] Soyfreeze Operator: Troy Link MD RBC (Bld) [#/Vol] 4.53 10*6/uL Normal 4.21-5.77 [facility] Comment on above: Performed By: #### C BC, PT, PTT, BMP #### [address] [address] Soyfreeze Operator: Good Melendez MD #### ANICOT #### [facility] [address] [place] [address] Soyfreeze Operator: Troy Link MD WBC (Bld) [#/Vol] 6.8 10*3/uL Normal 3.5-11.3 [facility] Comment on above: Performed By: #### C BC, PT, PTT, BMP #### [facility] [address] [place] [address] Soyfreeze Operator: Good Melendez MD #### YASSINET #### [facility] [address], [place] [id number] Soyfreeze Operator: Troy Link MD Troponinon 07-16-2021 Troponin, High Sens 59 ng/L Critically high 0-22 [facility] Comment on above: Result Comment: High Sensitivity Troponin values cannot be compared with other Troponin methodologies. Patients with high levels of Biotin oral intake (i.e >5mg/day) may have falsely decreased Troponin levels. Samples collected within 8 hours of biotin intake may require additional information for diagnosis. Performed By: #### C BC, PT, PTT, BMP #### [facility] [address] [place] [address] Soyfreeze Operator: Good Melendez MD #### YASSINET #### [facility] [address] [place] [address] Soyfreeze Operator: Troy Link MD EKG 12 LeadOrdered By: Matias Varela on 05-26-2021 Atrial Rate 108 BPM [employer] Phone: P Maddock -96 degrees [employer] Phone: P-R Interval 192 ms [employer] Phone: Q-T Interval 348 ms [employer] Phone: QRS Duration 94 ms [employer] Phone: QTc Calculation (Bazett) 466 ms [employer] Phone: R Maddock -116 degrees [employer] Phone: T Maddock -114 degrees [employer] Phone: Ventricular Rate 108 BPM [employer] Work Phone: [employer] Phone: EKG 12 Leadon 05-26-2021 Arm lead reversal Sinus Tachycardia V Leads placement error Repeat ECG When compared with ECG of 08-MAY-2021 11:42, Significant changes have occurred PN STV Matias Andrade MD - 05/26/2021 Arm lead reversal Sinus Tachycardia V Leads placement error Repeat ECG When compared with ECG of 08-MAY-2021 11:42, Significant changes have occurred [employer] Work Phone: SURGICAL PATHOLOGY REPORTon 05-26-2021 Surgical [...] with no areas of granularity or masses. 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 tm Microscopic Description Sections of gastric wall show lamina propria without evidence of significant inflammation. There is no evidence of intestinal metaplasia or dysplasia. There is no evidence of organisms suspicious for Helicobacter with the routine H&E stain. SURGICAL PATHOLOGY CONSULTATION Patient Name: SUKHDEEP SIMENTAL [facility] Rec: [id number] Path Number: [id number] [facility] ANATOMIC PATHOLOGY [address] [place] [address]. [place], [place] [address] [employer] Basic Metabolic Panelon 03-3 Anion gap [Moles/Vol] 10 mmol/L 9 - 17 mmol/L [facility] Calcium [Mass/Vol] 9.1 mg/dL 8.6 - 10. 4 mg/dL [facility] Chloride [Moles/Vol] 106 mmol/L 98 - 10 7 mmol/L [facility] CO2 [Moles/Vol] 23 mmol/L 20 - 31 mmol/L [facility] Creatinine [Mass/Vol] 1.1 mg/dL 0.70 - 1.20 mg/dL [facility] GFR >60 >60 mL/min [employer] GFR Non- >60 >60 mL/min [employer] GFR/1.73 sq M.predicted MDRD (S/P/Bld) [Vol rate/Area] [facility] Comment on above: Average GFR for 50-5 9 years old: 93 mL/min/1.73sq m Chronic Kidney Disease: <60 mL/min/1.73sq m Kidney failure: <15 mL/min/1.73sq m eGFR calculated using average adult body mass. Additional eGFR calculator available at: http://www.[employer]/Medius_crcl_2012.htm Glucose [Mass/Vol] 127 mg/dL High 70 - 99 mg/dL [facility] [employer] Interpretation and review of laboratory results Abnormal [facility] Potassium [Moles/Vol] 4.8 mmol/L 3.7 - 5.3 mmol/L [facility] Sodium [Moles/Vol] 139 mmol/L 135 - 144 mmol/L [employer] Urea nitrogen (BldV) [Mass/Vol] 24 mg/dL High 6 - 20 mg/dL [facility] [employer] Basic Metabolic Profon 05-25 (cont.) Normal [facility] Comment on above: Result Comment: Aver age GFR for 50-59 years old: 93 mL/min/1.73sq m Chronic Kidney Disease: <60 mL/min/1.73sq m Kidney failure: <15 mL/min/1.73sq m eGFR calculated using average adult body mass. Additional eGFR calculator available at: http://www.[employer]/Medius_crcl_2012.htm Performed By: #### C BC, PT, PTT, BMP #### [facility] [address] [place], [place] [id number] Soyfreeze Operator: Good Melendez MD #### JIMENA #### [facility] [address] [place] [address] Soyfreeze Operator: Troy Link MD Anion gap [Moles/Vol] 10 mmol/L Normal - [facility] Comment on above: Performed By: #### C BC, PT, PTT, BMP #### [facility] [employer] [address] [place] [address] Soyfreeze Operator: Good Melendez MD #### ANICOT #### [facility] [address], [place] [id number] Soyfreeze Operator: Troy Link MD Calcium [Mass/Vol] 9.1 mg/dL Normal 8.6-10.4 [facility] Comment on above: Performed By: #### C BC, PT, PTT, BMP #### [address] [address] Soyfreeze Operator: Good Melendez MD #### ANICOT #### [address] [id number] Soy[employer]ze Operator: Troy Link MD Chloride [Moles/Vol] 106 mmol/L Normal 98-107 [facility] Comment on above: Performed By: #### C BC, PT, PTT, BMP #### [address] [address] Soyfreeze Operator: Good Melendez MD #### ANICOT #### [address] [id number] Soy[employer] Operator: Troy Link MD CO2 [Moles/Vol] 23 mmol/L Normal 20-31 [facility] Comment on above: Performed By: #### C BC, PT, PTT, BMP #### [address] [address] Soyfreeze Operator: Good Melendez MD #### ANICOT #### [facility] [address], [place] [id number] Soyfreeze Operator: Troy Link MD Creatinine [Mass/Vol] 1.10 mg/dL Normal 0.70-1.20 [facility] Comment on above: Performed By: #### C BC, PT, PTT, BMP #### [facility] [address] [place] [address] Soyfreeze Operator: Good Melendez MD #### ANICOT #### [facility] [address], [place] [id number] Soyfreeze Operator: Troy Link MD GFR, Amer >60 Normal >60 [facility] Comment on above: Performed By: #### C BC, PT, PTT, BMP #### [facility] [address] [place] [address] Soyfreeze Operator: Good Melendez MD #### ANICOT #### [facility] [address] [place] [address] Soyfreeze Operator: Troy Link MD GFR,non Amer >60 Normal >60 [facility] Comment on above: Performed By: #### C BC, PT, PTT, BMP #### [address] [address] Soyfreeze Operator: Good Melendez MD #### ANICOT #### [facility] [address] [place] [address] Soyfreeze Operator: Troy Link MD Glucose [Mass/Vol] 127 mg/dL High 70-99 [facility] Comment on above: Performed By: #### C BC, PT, PTT, BMP #### [facility] [address] [place] [address] Soyfreeze Operator: Good Melendez MD #### ANICOT #### [facility] [address] [place] [address] Soyfreeze Operator: Troy Link MD Potassium [Moles/Vol] 4.8 mmol/L Normal 3.7-5.3 [facility] Comment on above: Performed By: #### C BC, PT, PTT, BMP #### [facility] [address] [place] [address] [id number] Soyfreeze Operator: Good Melendez MD #### ANICOT #### [facility] [address] [place] [address] Soyfreeze Operator: Troy Link MD Sodium [Moles/Vol] 139 mmol/L Normal 135-144 [facility] Comment on above: Performed By: #### C BC, PT, PTT, BMP #### [address] [address] Soyfreeze Operator: Good Melendez MD #### ANICOT #### [facility] [address] [place] [address] Soyfreeze Operator: Troy Link MD Urea nitrogen [Mass/Vol] 24 mg/dL High 6-20 [facility] Comment on above: Performed By: #### C BC, PT, PTT, BMP #### [address] [address] Soyfreeze Operator: Good Melendez MD #### ANICOT #### [facility] [address] [place] [address] Soyfreeze Operator: Troy Link MD [facility] Erythrocyte distribution width (RBC) [Ratio] 13.9 % Normal 11.8-14.4 [facility] Comment on above: Performed By: #### C BC, PT, PTT, BMP #### [facility] [employer] [address] [place] [address] Soyfreeze Operator: Good Melendez MD #### ANICOT #### [facility] [address] [place] [address] Soyfreeze Operator: Troy Link MD Hematocrit (Bld) [Volume fraction] 39.5 % Low 40.7-50.3 [facility] Comment on above: Performed By: #### C BC, PT, PTT, BMP #### [address] [address] Soyfreeze Operator: Good Melendez MD #### ANICOT #### [facility] [address] [place] [address] Soyfreeze Operator: Troy Link MD Hemoglobin (Bld) [Mass/Vol] 12.2 g/dL Low 13.0-17.0 [facility] Comment on above: Performed By: #### C BC, PT, PTT, BMP #### [address] [address] Soyfreeze Operator: Good Melendez MD #### ANICOT #### [facility] [address] [place] [address] Soyfreeze Operator: Troy Link MD MCH (RBC) [Entitic mass] 30.2 pg Normal 25.2-33.5 [facility] Comment on above: Performed By: #### C BC, PT, PTT, BMP #### [address] [address] Soyfreeze Operator: Good Melendez MD #### ANICOT #### [facility] [address] [place] [address] Soyfreeze Operator: Troy Link MD MCHC (RBC) [Mass/Vol] 30.9 g/dL Normal 28.4-34.8 [facility] Comment on above: Performed By: #### C BC, PT, PTT, BMP #### [address] [address] Soyfreeze Operator: Good Melendez MD #### ANICOT #### [facility] [address] [place] [address] Soyfreeze Operator: Troy Link MD MCV (RBC) [Entitic vol] 97.8 fL Normal 82.6-102.9 [facility] Comment on above: Performed By: #### C BC, PT, PTT, BMP #### [address] [address] Soyfreeze Operator: Good Melendez MD #### ANICOT #### [facility] [address] [place] [address] Soyfreeze Operator: Troy Link MD NRBC Automated 0.0 per 100 WBC Normal 0.0 [facility] Comment on above: Performed By: #### C BC, PT, PTT, BMP #### [address] [address] Soyfreeze Operator: Good Melendez MD #### ANICOT #### [facility] [address], [place] [id number] Soyfreeze Operator: Troy Link MD Platelet mean volume (Bld) [Entitic vol] 8.8 fL Normal 8.1-13.5 [facility] Comment on above: Performed By: #### C BC, PT, PTT, BMP #### [address] [address] Soyfreeze Operator: Good Melendez MD #### ANICOT #### [facility] [address] [place] [address] Soyfreeze Operator: Troy Link MD Platelets (Bld) [#/Vol] 263 10*3/uL Normal 138-453 [facility] Comment on above: Performed By: #### C BC, PT, PTT, BMP #### [address] [address] Soyfreeze Operator: Good Melendez MD #### ANICOT #### [facility] [address], [place] [id number] Soyfreeze Operator: Troy Link MD RBC (Bld) [#/Vol] 4.04 10*6/uL Low 4.21-5.77 [facility] Comment on above: Performed By: #### C BC, PT, PTT, BMP #### [facility] [address] [place], [place] [address] Soyfreeze Operator: Good Melendez MD #### ANAPARNAT #### [facility] [address], [place] [id number] Soyfreeze Operator: Troy Link MD WBC (Bld) [#/Vol] 10.8 10*3/uL Normal 3.5-11.3 [facility] Comment on above: Performed By: #### C BC, PT, PTT, BMP #### [facility] [address] [place] [address] Soyfreeze Operator: Good Melendez MD #### ANICOT #### [facility] [address] [place] [address] Soyfreeze Operator: Troy Link MD Hematocrit (Bld) [Volume fraction] 39.5 % Low 40.7 - 50.3 % [facility] Hemoglobin.gastroint estinal spec 1 Ql (Stl) 12.2 g/dL Low 13.0 - 17.0 g/dL [facility] Interpretation and review of laboratory results Abnormal [facility] MCH (RBC) [Entitic mass] 30.2 pg 25.2 - 33.5 pg [facility] MCHC (RBC) [Mass/Vol] 30.9 g/dL 28.4 - 34.8 g/dL [facility] MCV (RBC) [Entitic vol] 97.8 fL 82.6 - 102.9 fL [facility] [employer] NRBC Automated 0.0 0.0 per 100 WBC [facility] [employer] Platelet distribution width (Bld) [Ratio] 13.9 % 11.8 - 14.4 % [facility] mean volume (Bld) [Entitic vol] 8.8 fL 8.1 - 13.5 fL [facility] [employer] Platelets (Bld) [#/Vol] 263 10*3/uL [facility] RBC (Bld) [#/Vol] 4.04 10*6/uL Low 4.21 - 5.7 7 m/uL [facility] [employer] WBC (Bld) [#/Vol] 10.8 10*3/uL [facility] Magnesiumon 05-25-2021 Magnesium [Mass/Vol] 1.9 mg/dL Normal 1.6-2.6 [facility] [place] Comment on above: Performed By: #### C BC, PT, PTT, BMP #### [facility] [place], [place] [id number] Soyfreeze Operator: Good Melendez MD #### ANICOT #### [facility] [address] [place] [address] Soyfreeze Operator: Troy Link MD Magnesium [Mass/Vol] 1.9 mg/dL 1.6 - 2 .6 mg/dL [facility] Surgical Pathologyon 022 Surgical Pathology (NOTE) [...] with no areas of granularity or masses. 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 tm Microscopic Description Sections of gastric wall show lamina propria without evidence of significant inflammation. There is no evidence of intestinal metaplasia or dysplasia. There is no evidence of organisms suspicious for Helicobacter with the routine CANDY stain. SURGICAL PATHOLOGY CONSULTATION Patient Name: SUKHDEEP SIMENTAL [facility] Rec: [id number] Path Number: [id number] [facility] ANATOMIC PATHOLOGY [address] [place] [phone] Normal [facility] Comment on above: Performed By: #### C BC, PT, PTT, BMP #### [facility] [place], [place] [id number] Soyfreeze Operator: Good Melendez MD #### ANICOT #### [facility] [address] [place] [address] Soyfreeze Operator: Troy Link MD Basic Metabolic Panelon 04-27 Anion gap [Moles/Vol] 13 mmol/L 9 - 17 mmol/L [facility] Calcium [Mass/Vol] 9.1 mg/dL 8.6 - 10. 4 mg/dL [facility] Chloride [Moles/Vol] 102 mmol/L 98 - 10 7 mmol/L [facility] CO2 [Moles/Vol] 17 mmol/L Low 20 - 31 mmol/L [facility] Creatinine [Mass/Vol] 1.16 mg/dL 0.70 - 1.20 mg/dL [facility] GFR >60 >60 mL/min [employer] GFR Non- >60 >60 mL/min [facility] GFR/1.73 sq M.predicted MDRD (S/P/Bld) [Vol rate/Area] [facility] Comment on above: Average GFR for 50-5 9 years old: 93 mL/min/1.73sq m Chronic Kidney Disease: <60 mL/min/1.73sq m Kidney failure: <15 mL/min/1.73sq m eGFR calculated using average adult body mass. Additional eGFR calculator available at: http://www.[employer]/multiple_crcl_2012.htm Glucose [Mass/Vol] 203 mg/dL High 70 - 99 mg/dL [facility] Interpretation and review of laboratory results Abnormal [facility] Potassium [Moles/Vol] 4.2 mmol/L 3.7 - 5.3 mmol/L [facility] Sodium [Moles/Vol] 132 mmol/L Low 135 - 144 mmol/L [facility] Urea nitrogen (BldV) [Mass/Vol] 29 mg/dL High 6 - 20 mg/dL [facility] Basic Metabolic Profon 05-24 (cont.) Normal [facility] Comment on above: Result Comment: Aver age GFR for 50-59 years old: 93 mL/min/1.73sq m Chronic Kidney Disease: <60 mL/min/1.73sq m Kidney failure: <15 mL/min/1.73sq m eGFR calculated using average adult body mass. Additional eGFR calculator available at: http://www.[employer].com.[employer] labs/multiple_crcl_2012.htm Performed By: #### C BC, BMP #### [address] [address] [employer] Operator: Good Melendez MD Anion gap [Moles/Vol] 13 mmol/L Normal 9-17 [facility] Comment on above: Performed By: #### C BC, BMP #### [address] [address] [employer] Operator: Good Melendez MD Calcium [Mass/Vol] 9.1 mg/dL Normal 8.6-10.4 [facility] Comment on above: Performed By: #### C JASE, BMP #### [address] [address] [employer] Operator: Good Melendez MD Chloride [Moles/Vol] 102 mmol/L Normal 98-107 [facility] [place] Comment on above: Performed By: #### C BC, BMP #### [address] [address] [employer] Operator: Good Melendez MD CO2 [Moles/Vol] 17 mmol/L Low 20-31 [facility] Comment on above: Performed By: #### C BC, BMP #### [address] [address] [employer] Operator: Good Melendez MD Creatinine [Mass/Vol] 1.16 mg/dL Normal 0.70-1.20 [facility] Comment on above: Performed By: #### C BC, BMP #### [address] [address] [employer] Operator: Good Melendez MD GFR, Amer >60 Normal >60 [facility] Comment on above: Performed By: #### C BC, BMP #### [facility] [employer] [address] [place] [address] [employer] Operator: Good Melendez MD GFR,non Amer >60 Normal >60 [facility] [place] Comment on above: Performed By: #### C BC, BMP #### [facility] [employer] [address] [place] [address] [employer] Operator: Good Melendez MD Glucose [Mass/Vol] 203 mg/dL High 70-99 [facility] Comment on above: Performed By: #### C BC, BMP #### [facility] [employer] [address] [place] [address] [employer] Operator: Good Melendez MD Potassium [Moles/Vol] 4.2 mmol/L Normal 3.7-5.3 [facility] Comment on above: Performed By: #### C BC, BMP #### [facility] [facility] [employer] [address] [place] [address] Soyfreeze Operator: Good Melendez MD Sodium [Moles/Vol] 132 mmol/L Low 135-144 [facility] Comment on above: Performed By: #### C BC, BMP #### [facility] [employer] [address] [place] [address] Soyfreeze Operator: Good Melendez MD Urea nitrogen [Mass/Vol] 29 mg/dL High 6-20 [facility] Comment on above: Performed By: #### C BC, BMP #### [facility] [employer] [address] [place] [address] Soyfreeze Operator: Good Melendez MD CBCon 05-24-2021 Erythrocyte distribution width (RBC) [Ratio] 14.0 % Normal 11.8-14.4 [facility] Comment on above: Performed By: #### C BC, BMP #### [facility] [employer] [address] [place] [address] Soyfreeze Operator: Good Melendez MD Hematocrit (Bld) [Volume fraction] 41.0 % Normal 40.7-50.3 [facility] Comment on above: Performed By: #### C BC, BMP #### [address] [address] Soyfreeze Operator: Good Melendez MD Hemoglobin (Bld) [Mass/Vol] 12.7 g/dL Low 13.0-17.0 [facility] Comment on above: Performed By: #### C BC, BMP #### [facility] [employer] [address] [place] [address] Soyfreeze Operator: oGod Melendez MD MCH (RBC) [Entitic mass] 29.5 pg Normal 25.2-33.5 [facility] Comment on above: Performed By: #### C JASE, BMP #### [address] [address] Soyfreeze Operator: Good Melendez MD MCHC (RBC) [Mass/Vol] 31.0 g/dL Normal 28.4-34.8 [facility] Comment on above: Performed By: #### C JASE, BMP #### [address] [address] Soyfreeze Operator: Good Melendez MD MCV (RBC) [Entitic vol] 95.3 fL Normal 82.6-102.9 [facility] Comment on above: Performed By: #### C BC, BMP #### [facility] [employer] [address] [place] [address] Soyfreeze Operator: Good Melendez MD NRBC Automated 0.0 per 100 WBC Normal 0.0 [facility] Comment on above: Performed By: #### C BC, BMP #### [facility] [employer] [address] [place] [address] [phone] Soyfreeze Operator: Good Melendez MD Platelet mean volume (Bld) [Entitic vol] 8.8 fL Normal 8.1-13.5 [facility] Comment on above: Performed By: #### C BC, BMP #### [facility] [address] [place] [address] Soyfreeze Operator: Good Melendez MD Platelets (Bld) [#/Vol] 273 10*3/uL Normal 138-453 [facility] Comment on above: Performed By: #### C BC, BMP #### [facility] [address] [place] [address] Soyfreeze Operator: Good Melendez MD RBC (Bld) [#/Vol] 4.30 10*6/uL Normal 4.21-5.77 [facility] Comment on above: Performed By: #### C JASE, BMP #### [facility] [address] [place] [address] Soyfreeze Operator: Good Melendez MD WBC (Bld) [#/Vol] 9.6 10*3/uL Normal 3.5-11.3 [facility] Comment on above: Performed By: #### C BC, BMP #### [facility] [address] [place] [address] Soyfreeze Operator: Good Melendez MD CBC without Diffon Hematocrit (Bld) [Volume fraction] 41.0 % 40.7 - 50.3 % [facility] Hemoglobin.gastroint estinal spec 1 Ql (Stl) 12.7 g/dL Low 13.0 - 17.0 g/dL [facility] Interpretation and review of laboratory results Abnormal [facility] MCH (RBC) [Entitic mass] 29.5 pg 25.2 - 33.5 pg [facility] MCHC (RBC) [Mass/Vol] 31.0 g/dL 28.4 - 34.8 g/dL [facility] MCV (RBC) [Entitic vol] 95.3 fL 82.6 - 102.9 fL [facility] NRBC Automated 0.0 0.0 per 100 WBC [facility] Platelet distribution width (Bld) [Ratio] 14.0 % 11.8 - 14.4 % [facility] Platelet mean volume (Bld) [Entitic vol] 8.8 fL 8.1 - 13.5 fL [facility] Platelets (Bld) [#/Vol] 273 10*3/uL [facility] RBC (Bld) [#/Vol] 4.30 10*6/uL 4.21 - 5.7 7 m/uL [facility] WBC (Bld) [#/Vol] 9.6 10*3/uL [facility] COVID-19, Rapidon 05-24-2021 SARS-CoV-2 (COVID-19) RNA MUKUL+probe Ql (Unsp spec) Not detected Not Detected [facility] Comment on above: Rapid NAAT: The [...] management decisions. Fact sheet for Healthcare Providers: https://www.fda.gov/media/421615/download Fact sheet for Patients: https://www.fda.gov/media/462821/download Methodology: Isothermal Nucleic Acid Amplification Specimen Description .NASOPHARYNGEAL SWAB [facility] Calcium, Ionicon 05-24-2021 Calcium [Moles/Vol] 1.31 mmol/L Normal 1.13-1.33 [facility] Comment on above: Performed By: #### I OCSETH MG, BRITTANIE #### [facility] [employer] [facility] [place] [address] Soyfreeze Operator: Good Melendez MD Calcium, Ionizedon Calcium [Moles/Vol] 1.31 mmol/L 1.13 - 1 .33 mmol/L [facility] Magnesiumon 05-24-2021 Magnesium [Mass/Vol] 2.0 mg/dL Normal 1.6-2.6 [facility] Comment on above: Performed By: #### C BC, PT, PTT, BMP #### [facility] [address] [place], [place] [phone] Soyfreeze Operator: Good Melendez MD #### ANICOT #### [facility] [address] [place] [address] Soyfreeze Operator: Troy Link MD Magnesium [Mass/Vol] 2.0 mg/dL 1.6 - 2 .6 mg/dL [facility] No Panel Informationon 05-24 [facility] POC Glucose Fingerstickon Glucose [Mass/Vol] 199 mg/dL High 75 - 110 mg/dL [facility] Interpretation and review of laboratory results Abnormal [facility] Glucose [Mass/Vol] 209 mg/dL High 75 - 110 mg/dL [facility] Interpretation and review of laboratory results Abnormal [facility] POCT Glucoseon 05-24-2021 Glucose [Mass/Vol] 150 mg/dL High 74 - 100 mg/dL [facility] Interpretation and review of laboratory results Abnormal [facility] POTASSIUM (POC)on 05-24-2021 Potassium [Moles/Vol] 3.9 mmol/L 3.5 - 4.5 mmol/L [facility] Phosphoruson 05-24-2021 Phosphate [Mass/Vol] 3.8 mg/dL 2.5 - 4 .5 mg/dL [facility] Phosphorus, Inorg.on 022 Phosphorus, Inorg. 3.8 mg/dL Normal 2.5-4.5 [facility] Comment on above: Performed By: #### C BC, PT, PTT, BMP #### [facility] [address] [place], [place] [phone] Soyfreeze Operator: Good Melendez MD #### ANICOT #### [facility] [address] [place] [address] Soyfreeze Operator: Troy Link MD [id number] 05-24-2021 SARS-CoV-2 (COVID-19) RNA MUKUL+probe Ql (Unsp spec) Not detected Normal NOTDET [facility] Comment on above: Result Comment: Rapid NAAT: [...] management decisions. Fact sheet for Healthcare Providers: https://www.fda.gov/media/380394/download Fact sheet for Patients: https://www.fda.gov/media/551511/download Methodology: Isothermal Nucleic Acid Amplification Performed By: #### C OVRB #### [facility] [address] [place] [address] Soyfreeze Operator: Good Melendez MD Nicotineon 05-11-2021 [id number] <2 Normal [facility] Comment on above: Performed By: #### C BC, PT, PTT, BMP #### [facility] [address] [place] [address] Soyfreeze Operator: Good Melendez MD #### ANICOT #### [facility] [address] [place] [address] Soyfreeze Operator: Troy Link MD Cotinine <2 Normal [facility] Comment on above: Performed By: #### C BC, PT, PTT, BMP #### [facility] [address] [place] [address] Soyfreeze Operator: Good Melendez MD #### ANICOT #### [facility] [address] [place] [address] Soyfreeze Operator: Troy Link MD Nicotine <2 Normal [facility] Comment on above: Result Comment: [...] developed and its performance characteristics determined by [employer]. It has not been cleared or approved by the [place] Food and Drug Administration. This test was performed in a CLIA certified laboratory and is intended for clinical purposes. Performed By: [facility] [address] [place] [address] Building Serviceman: Ayse Diaz MD Performed By: #### C BC, PT, PTT, BMP #### [place] [address] Soyfreeze Operator: Good Melendez MD #### ANICOT #### [facility] [employer] [address] [place] [address] Soyfreeze Operator: Troy Link MD Nicotine, Bloodon 05-11-2021 5-YM-Mlcopnln <2 ng/mL [facility] h Cotinine <2 ng/mL [facility] Nicotine <2 ng/mL [facility] Comment on above: (NOTE) Consistent with [...] developed and its performance characteristics determined by [employer]. It has not been cleared or approved by the US Food and Drug Administration. This test was performed in a CLIA certified laboratory and is intended for clinical purposes. Performed By: [facility] [address] [place] [address] Building Serviceman: Ayse Diaz MD [facility] EKG 12 LeadOrdered By: Unkno wn Result on 05-09-2021 Atrial Rate 122 BPM [facility] P Maddock 55 degrees [facility] P-R Interval 164 ms [facility] Q-T Interval 298 ms [facility] QRS Duration 84 ms [facility] QTc Calculation (Bazett) 424 ms [facility] R Maddock -11 degrees [facility] T Maddock 42 degrees [facility] Ventricular Rate 122 BPM [facility] 12 Leadon 05-09-2021 Sinus tachycardia Otherwise normal ECG No previous ECGs available [facility] ST[facility] MUSE Result, Unknown Provider - 05/09/2021 Sinus tachycardia Otherwise normal ECG No previous ECGs available [facility] Work Phone: XR CHEST (2 VW)on 05-09-2021 [...] Singh Calero MD 05/09/21 Final result Normal [facility] No acute airspace disease identified. [facility] EXAMINATION: TWO XRAY VIEWS OF THE [...] effusion. No acute osseous abnormality is identified. [facility] Singh Calero MD - 05/09/2021 EXAMINATION: [...] identified. IMPRESSION: No acute airspace disease identified. [facility] Work Phone: XR CHEST (2 VW)Ordered By: Carlos Calero on 05-09-2021 [facility] Work Phone: APTTon 05-08-2021 aPTT Coag (Bld) [Time] 23.1 s Normal 20.5-30.5 [facility] Comment on above: Result Comment: IV Heparin Therapy Range: 48.6-77.8 Performed By: #### C BC, PT, PTT, BMP #### [facility] [address] [place], [place] [phone] Soyfreeze Operator: Good Melendez MD #### ANICOT #### [facility] [address] [place] [address] Soyfreeze Operator: Troy Link MD aPTT Coag (Bld) [Time] 23.1 s [facility] Comment on above: IV Heparin Therapy Range: 48.6-77.8 Basic Metabolic Panelon 03- Anion gap [Moles/Vol] 15 mmol/L 9 - 17 mmol/L [facility] Calcium [Mass/Vol] 9.4 mg/dL 8.6 - 10. 4 mg/dL [facility] Chloride [Moles/Vol] 103 mmol/L 98 - 10 7 mmol/L [facility] CO2 [Moles/Vol] 19 mmol/L Low 20 - 31 mmol/L [facility] Creatinine [Mass/Vol] 1.59 mg/dL High 0.70 - 1.20 mg/dL [facility] GFR 55 mL/min Low >60 [facility] GFR Non- 45 mL/min Low >60 [facility] GFR/1.73 sq M.predicted MDRD (S/P/Bld) [Vol rate/Area] [facility] Comment on above: Average GFR for 50-5 9 years old: 93 mL/min/1.73sq m Chronic Kidney Disease: <60 mL/min/1.73sq m Kidney failure: <15 mL/min/1.73sq m eGFR calculated using average adult body mass. Additional eGFR calculator available at: http://www.[employer]/Medius_crcl_2012.htm Glucose [Mass/Vol] 141 mg/dL High 70 - 99 mg/dL [facility] Interpretation and review of laboratory results Abnormal [facility] Potassium [Moles/Vol] 5.3 mmol/L 3.7 - 5.3 mmol/L [facility] Sodium [Moles/Vol] 137 mmol/L 135 - 144 mmol/L [facility] Urea nitrogen (BldV) [Mass/Vol] 37 mg/dL High 6 - 20 mg/dL [facility] Basic Metabolic Profon 05-08 (cont.) Normal [facility] Comment on above: Result Comment: Aver age GFR for 50-59 years old: 93 mL/min/1.73sq m Chronic Kidney Disease: <60 mL/min/1.73sq m Kidney failure: <15 mL/min/1.73sq m eGFR calculated using average adult body mass. Additional eGFR calculator available at: http://www.[employer]/multiple_crcl_2012.htm Performed By: #### C BC, PT, PTT, BMP #### [facility] [facility] [place] [address] Soyfreeze Operator: Good Melendez MD #### ANICOT #### [facility] [address], [place] [id number] Soyfreeze Operator: Troy Link MD Anion gap [Moles/Vol] 15 mmol/L Normal 9-17 [facility] Comment on above: Performed By: #### C BC, PT, PTT, BMP #### [address] [address] Soyfreeze Operator: Good Melendez MD #### ANICOT #### [facility] [address], [place] [id number] Soyfreeze Operator: Troy Link MD Calcium [Mass/Vol] 9.4 mg/dL Normal 8.6-10.4 [facility] Comment on above: Performed By: #### C BC, PT, PTT, BMP #### [address] [address] Soyfreeze Operator: Good Melendez MD #### ANICOT #### [facility] [address] [place] [address] Soyfreeze Operator: Troy Link MD Chloride [Moles/Vol] 103 mmol/L Normal 98-107 [facility] Comment on above: Performed By: #### C BC, PT, PTT, BMP #### [address] [address] Soyfreeze Operator: Good Melendez MD #### ANICOT #### [facility] [address] [place] [address] Soyfreeze Operator: Troy Link MD CO2 [Moles/Vol] 19 mmol/L Low 20-31 [facility] Comment on above: Performed By: #### C BC, PT, PTT, BMP #### [facility] [place] [address] Soyfreeze Operator: Good Melendez MD #### ANICOT #### [facility] [address], [place] [id number] Soyfreeze Operator: Troy Link MD Creatinine [Mass/Vol] 1.59 mg/dL High 0.70-1.20 [facility] Comment on above: Performed By: #### C BC, PT, PTT, BMP #### [facility] [address] [place] [address] Soyfreeze Operator: Good Melendez MD #### ANICOT #### [facility] [address] [place] [address] Soyfreeze Operator: Troy Link MD GFR, Amer 55 mL/min Low >60 [facility] Comment on above: Performed By: #### C BC, PT, PTT, BMP #### [facility] [address] [place] [address] Soyfreeze Operator: Good Melendez MD #### ANICOT #### [facility] [address], [place] [id number] Soyfreeze Operator: Troy Link MD GFR,non Amer 45 mL/min Low >60 [facility] Comment on above: Performed By: #### C BC, PT, PTT, BMP #### [facility] [address] [place] [address] Soyfreeze Operator: Good Melendez MD #### ANICOT #### [facility] [address] [place] [address] Soyfreeze Operator: Troy Link MD Glucose [Mass/Vol] 141 mg/dL High 70-99 [facility] Comment on above: Performed By: #### C BC, PT, PTT, BMP #### [facility] [address] [place], [place] [address], [place] [address] Soyfreeze Operator: Good Melendez MD #### ANICOT #### [facility] [address] [place] [address] Soyfreeze Operator: Troy Link MD Potassium [Moles/Vol] 5.3 mmol/L Normal 3.7-5.3 [facility] Comment on above: Performed By: #### C BC, PT, PTT, BMP #### [address] [id number] Soyfreeze Operator: Good Melendez MD #### ANICOT #### [address] [address] Soyfreeze Operator: Troy Link MD Sodium [Moles/Vol] 137 mmol/L Normal 135-144 [facility] Comment on above: Performed By: #### C BC, PT, PTT, BMP #### [address] [address] Soyfreeze Operator: Good Melendez MD #### ANICOT #### [address] [address] Soyfreeze Operator: Troy Link MD Urea nitrogen [Mass/Vol] 37 mg/dL High 6-20 [facility] Comment on above: Performed By: #### C BC, PT, PTT, BMP #### [address] [address] Soyfreeze Operator: Good Melendez MD #### ANICOT #### [facility] [address] [place] [address] Soyfreeze Operator: Troy Link MD CBCon 05-08-2021 Erythrocyte distribution width (RBC) [Ratio] 14.1 % Normal 11.8-14.4 [facility] Comment on above: Performed By: #### C BC, PT, PTT, BMP #### [address] [place] [address] Soyfreeze Operator: Good Melendez MD #### ANICOT #### [facility] [address] [place] [address] Soyfreeze Operator: Troy Link MD Hematocrit (Bld) [Volume fraction] 43.6 % Normal 40.7-50.3 [facility] Comment on above: Performed By: #### C BC, PT, PTT, BMP #### [facility] [address] [place] [address] Soyfreeze Operator: Good Melendez MD #### ANICOT #### [facility] [address] [place] [address] Soyfreeze Operator: Troy Link MD Hemoglobin (Bld) [Mass/Vol] 13.5 g/dL Normal 13.0-17.0 [facility] Comment on above: Performed By: #### C BC, PT, PTT, BMP #### [address] [address] Soyfreeze Operator: Good Melendez MD #### ANICOT #### [facility] [address] [place] [address] Soyfreeze Operator: Troy Link MD MCH (RBC) [Entitic mass] 29.4 pg Normal 25.2-33.5 [facility] Comment on above: Performed By: #### C BC, PT, PTT, BMP #### [address] [address] Soyfreeze Operator: Good Melendez MD #### ANICOT #### [facility] [address] [place] [address] Soyfreeze Operator: rToy Link MD MCHC (RBC) [Mass/Vol] 31.0 g/dL Normal 28.4-34.8 [facility] Comment on above: Performed By: #### C BC, PT, PTT, BMP #### [facility] [place] [address] Soyfreeze Operator: Good Melendez MD #### ANICOT #### [facility] [address] [place], [place] [id number] Soyfreeze Operator: Troy Link MD MCV (RBC) [Entitic vol] 95.0 fL Normal 82.6-102.9 [facility] Comment on above: Performed By: #### C BC, PT, PTT, BMP #### [address] [id number] Soy[employer]ze Operator: Good Melendez MD #### ANICOT #### [facility] [address] [place] [address] Soyfreeze Operator: Troy Link MD NRBC Automated 0.0 per 100 WBC Normal 0.0 [facility] Comment on above: Performed By: #### C BC, PT, PTT, BMP #### [address] [address] Soyfreeze Operator: Good Melendez MD #### ANICOT #### [facility] [address] [place] [address] Soyfreeze Operator: Troy Link MD Platelet mean volume (Bld) [Entitic vol] 8.7 fL Normal 8.1-13.5 [facility] Comment on above: Performed By: #### C BC, PT, PTT, BMP #### [address] [address] Soyfreeze Operator: Good Melendez MD #### ANICOT #### [facility] [address] [place] [address] Soyfreeze Operator: Troy Link MD Platelets (Bld) [#/Vol] 279 10*3/uL Normal 138-453 [facility] Comment on above: Performed By: #### C BC, PT, PTT, BMP #### [facility] [place], [place] [id number] Soyfreeze Operator: Good Melendez MD #### ANICOT #### [facility] [address], [place] [id number] Soyfreeze Operator: Troy Link MD RBC (Bld) [#/Vol] 4.59 10*6/uL Normal 4.21-5.77 [facility] Comment on above: Performed By: #### C BC, PT, PTT, BMP #### [facility] [address] [place] [address] [phone] Soyfreeze Operator: Good Melendez MD #### ANICOT #### [facility] [address], [place] [id number] Soyfreeze Operator: Troy Link MD WBC (Bld) [#/Vol] 8.9 10*3/uL Normal 3.5-11.3 [facility] Comment on above: Performed By: #### C BC, PT, PTT, BMP #### [facility] [address] [place] [address] [phone] Soyfreeze Operator: Good Melendez MD #### ANICOT #### [facility] [address] [place], [place] [id number] Soyfreeze Operator: Troy Link MD Hematocrit (Bld) [Volume fraction] 43.6 % 40.7 - 50.3 % [facility] Hemoglobin.gastroint estinal spec 1 Ql (Stl) 13.5 g/dL 13.0 - 17.0 g/dL [facility] MCH (RBC) [Entitic mass] 29.4 pg 25.2 - 33.5 pg [facility] MCHC (RBC) [Mass/Vol] 31.0 g/dL 28.4 - 34.8 g/dL [facility] MCV (RBC) [Entitic vol] 95.0 fL 82.6 - 102.9 fL [facility] NRBC Automated 0.0 0.0 per 100 WBC [facility] Platelet distribution width (Bld) [Ratio] 14.1 % 11.8 - 14.4 % [facility] Platelet mean volume (Bld) [Entitic vol] 8.7 fL 8.1 - 13.5 fL [facility] Platelets (Bld) [#/Vol] 279 10*3/uL [facility] RBC (Bld) [#/Vol] 4.59 10*6/uL 4.21 - 5.7 7 m/uL [facility] WBC (Bld) [#/Vol] 8.9 10*3/uL [facility] No Panel Informationon 05-08 [facility] PTon 05-08-2021 INR Coag (PPP) [Relative time] 1.1 {INR} Normal [facility] Comment on above: Result Comment: Therapeutic Range: Moderate Anticoagulant Intensity: INR = 2.0-3.0 High Anticoagulant Intensity: INR = 2.5-3.5 Performed By: #### C BC, PT, PTT, BMP #### [facility] [address] [place] [address] Soyfreeze Operator: Good Melendez MD #### ANICOT #### [facility] [address] [place] [address] Soyfreeze Operator: Troy Link MD PT Coag (PPP) [Time] 11.2 s Normal 9.1-12.3 [facility] Comment on above: Performed By: #### C BC, PT, PTT, BMP #### [facility] [address] [place] [address] Soy[employer]ze Operator: Good Melendez MD #### ANICOT #### [facility] [address] [place] [address] Soyfreeze Operator: Troy Link MD Protime-INRon 05-08-2021 INR Coag (Bld) [Relative time] 1.1 {INR} [facility] Comment on above: Therapeutic Range: Moderate Anticoagulant Intensity: INR = 2.0-3.0 High Anticoagulant Intensity: INR = 2.5-3.5 PT Coag (PPP) [Time] 11.2 s [employer] XR CHEST (2 VW)on 05-08-2021 Radiology Study observation (narrative) [facility] Work Phone: CT LUMBAR SPINE W CONTRASTon 02-28-2021 CT LUMBAR SPINE W CONTRAST [facility] Department of Radiology [address] [place] [address] ======== Patient Name: SUKHDEEP SIMENTAL : 1965 Sex: M Age: Race: White Pt. Location: Patient Status: D Ordered Date: 02/13/2021 9:35:00 AM Completed Date: 02/28/2021 02:00 PM Requesting Provider: JASON MILLER Attending Provider: JASON MILLER Report Copy To: Signs & Symptoms: Z98.1 Arthrodesis status I10 History: [place] Comments: Exam: CT LUMBAR SPINE W CONTRAST [...] above Electronically signed: Petar Mg. Transcribed by: [email or web address], User Resident: Electronically Signed by: PETAR MG @ 03/01/2021 02:21 PM Normal [facility] LUMBAR MYELOGRAMon 2 LUMBAR MYELOGRAM [facility] Department of Radiology [address] [place] [id number] ======== Patient Name: SUKHDEEP SIMENTAL : 1965 Sex: M Age: Race: White Pt. Location: 84 Patient Status: O Ordered Date: 02/13/2021 9:35:00 AM Completed Date: 02/28/2021 02:06 PM Requesting Provider: JASNO MILLER Attending Provider: JASON MILLER Report Copy To: Signs & Symptoms: Z98.1 Arthrodesis status I10 History: [phone] Is patient on thinners? Eliquis hold 48hrs. 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 Consent was obtained. Timeout: [place] protocol timeout verification performed. PROCEDURE: Estimated blood [...] report. Electronically signed: Petar Mg. Transcribed by: [email or web address], User Resident: OCHOA HONG Electronically Signed by: PETAR MG @ 02/28/2021 03:13 PM I personally read this/these film(s) with this resident Normal The [facility] LUMBAR SPINE 4 OR 5 [facility] LUMBAR SPINE 4 OR 5 [facility] Department of Radiology [address] [place] [id number] ======== Patient Name: SUKHDEEP SIMENTAL : 1965 Sex: M Age: Race: White Pt. Location: Patient Status: D Ordered Date: 02/01/2021 1:05:00 PM Completed Date: 02/01/2021 01:12 PM Requesting Provider: JASON MILLER Attending Provider: JASON MILLER Report Copy To: Signs & Symptoms: M54.16 Radiculopathy, lumbar region I10 History: [place] Comments: Views (X-RAY, LUMBAR SPINE): AP, Lateral, [...] Osteopenia. Electronically signed: Ahsan Farmer. Transcribed by: [email or web address], User Resident: Electronically Signed by: AHSAN FARMER @ 02/02/2021 10:14 AM Normal [facility] Comment on above: Order Comment: Views (X-RAY, LUMBAR SPINE): AP, Lateral, L5-S1 Spot, Flexion, Extension C REACTIVE PROTEINon 021 CRP [Mass/Vol] 9.6 mg/L High 0.0-7.0 [facility] Comment on above: Performed By: #### 6 1405 #### [facility] [address] [place] [address], [facility] CBC W/DIFFon 12-15-2020 ABS IMM GRANS 0.1 10*3/uL Normal 0.0-0.2 [facility] Comment on above: Performed By: #### 5 6505, [id number] #### [facility] [address] [place] [address], [facility] ABS NEUTROPHILS 6.1 10*3/uL Normal 1.6-7.6 [facility] Comment on above: Performed By: #### 5 6505, 17676 #### [facility] [address] [place] [address], [place] Basophils (Bld) [#/Vol] 0.1 10*3/uL Normal 0.0-0.2 [facility] Comment on above: Performed By: #### 5 6505, 86818 #### [facility] [address] [place] [address], [place] Basophils/100 WBC (Bld) 0.8 % Normal 0.0-1.0 [facility] Comment on above: Performed By: #### 5 6505, 78535 #### [facility] [address] [place] [address], [place] Eosinophils (Bld) [#/Vol] 0.4 10*3/uL Normal 0.0-0.5 [facility] Comment on above: Performed By: #### 5 6505, 37009 #### [facility] [address] [place] [address], [place] Eosinophils/100 WBC (Bld) 4.1 % Normal 0.0-6.0 [facility] Comment on above: Performed By: #### 5 6505, 32922 #### [facility] [address] [place] [address], [place] Erythrocyte distribution width (RBC) [Ratio] 12.6 % Normal 11.5-15.0 [facility] Comment on above: Performed By: #### 5 6505, 97666 #### [facility] [address] [place] [address], [place] Hematocrit (Bld) [Volume fraction] 40.2 % Normal 39.0-50.0 [facility] Comment on above: Performed By: #### 5 6505, 50411 #### [facility] [address] [place] [address], [facility] Hemoglobin (Bld) [Mass/Vol] 12.6 g/dL Low 13.0-17.0 [facility] Comment on above: Performed By: #### 5 6505, 08685 #### [facility] [address] [place] [address], [facility] IMMATURE GRANS 0.7 % Normal 0.0-1.0 [facility] Comment on above: Performed By: #### 5 6505, 89788 #### [facility] [address] [facility] [place] [address], [facility] Lymphocytes (Bld) [#/Vol] 2.0 10*3/uL Normal 1.2-4.0 [facility] Comment on above: Performed By: #### 5 6505, 03590 #### [facility] [address] [facility] [place] [address], [facility] Lymphocytes/100 WBC (Bld) 20.6 % Normal 20.0-45.0 [facility] Comment on above: Performed By: #### 5 6505, 85504 #### [facility] [address] [facility] [place] [address], [facility] MCH (RBC) [Entitic mass] 30.0 pg Normal 27.0-33.0 [facility] Comment on above: Performed By: #### 5 6505, 15495 #### [facility] [address] [address], [facility] MCHC (RBC) [Mass/Vol] 31.3 g/dL Low 32.0-35.0 [facility] Comment on above: Performed By: #### 5 6505, 96198 #### [facility] [address] [place] [address], [facility] MCV (RBC) [Entitic vol] 95.7 fL Normal 82.0-98.0 [facility] Comment on above: Performed By: #### 5 6505, 44629 #### [facility] [address] [place] [id number], [facility] Monocytes (Bld) [#/Vol] 1.2 10*3/uL High 0.1-1.0 [facility] Comment on above: Performed By: #### 5 6505, 42362 #### [facility] [address] [place] [id number], [facility] MONOS 11.9 % Normal 5.0-12.0 [facility] Comment on above: Performed By: #### 5 6505, 65066 #### [facility] [address] [place] [id number], [facility] Neutrophils/100 WBC (Bld) 61.9 % Normal 40.0-72.0 [facility] Comment on above: Performed By: #### 5 6505, 45948 #### [facility] [address] [facility] [place] [id number], [facility] Nucleated RBC/100 WBC (Bld) [Ratio] 0 % Normal 0-0 [facility] Comment on above: Performed By: #### 5 6505, 89465 #### [facility] [address] [place] [id number], [place] PLAT CNT 335 10*3/uL Normal 150-400 [facility] Comment on above: Performed By: #### 5 6505, 40901 #### [facility] [address] [place] [address], [facility] RBC (Bld) [#/Vol] 4.20 10*6/uL Normal 4.20-5.[address] [facility] Comment on above: Performed By: #### 5 6505, 28256 #### [facility] [address] WBC (Bld) [#/Vol] 9.86 10*3/uL Normal 4.00-10.60 [facility] Comment on above: Performed By: #### 5 6506, 46778 #### [address] KNEE RIGHT 4 [facility] 1 KNEE RIGHT 4 [facility] Department of Radiology [address] [place] [id number] ======== Patient Name: SUKHDEEP SIMENTAL : 1965 Sex: M Age: Race: White Pt. Location: OUTP Patient Status: D Ordered Date: 12/15/2020 12:25:00 PM Completed Date: 12/15/2020 12:35 PM Requesting Provider: ROBBI PEPE Attending Provider: ROBBI PEPE Report Copy To: Signs & Symptoms: L03.115 cellulitis of rt lower limb History: Comments: evaluate Exam: KNEE RIGHT 4 [facility] ======== KNEE RIGHT 4 [facility] 12/15/2020 12:35 PM CLINICAL INDICATIONS: L03.115 [...] report. Electronically signed: Layo Jimenes. Transcribed by: [email or web address], User Resident: LAYO CORDERO Electronically Signed by: LAYO JIMENES @ 12/16/2020 09:18 AM I personally read this/these film(s) with this resident Normal [facility] Comment on above: Order Comment: evalu ate SEDIMENTATION RATEon 021 SED RATE 77 mm/hr High 0-10 [facility] Comment on above: Performed By: #### 5 6506, 35013 #### [facility] [address] COVID-19 Positive/Negativeon 05-05-2020 COVID-19 Positive/Negative Negative Negative [facility] Comment on above: Reference: NegativeT esting for SARS-CoV-2 by RT-PCRThis test was developed and its performance characteristics determined by [employer] and validated at the [facility]. This test has not been FDA [...] among non-blacks MDRD (S/P/Bld) [Vol rate/Area] mL/min/{1.73_m2} [facility] Otheron 05-05-2020 GFR/1.73 sq M.predicted MDRD (S/P/Bld) [Vol rate/Area] mL/min/{1.73_m2} [facility] Comment on above: GFR estimated refere nce range: According to KDOQI guidelines, <60 ml/min/1.73m2 is sufficient to diagnose a patient with chronic kidney disease. Pharmacy Creatinine Clearance (Chem N/A [facility] Coronavirus 2019 PCR Interp N/A [facility] Serum or plasma calcium yeni urement (mass/volume)on 05-05-2020 Calcium [Mass/Vol] 8.6 mg/dL 8.2-10.2 [facility] Serum or plasma chloride xi surement (moles/volume)on 05-05-2020 Chloride [Moles/Vol] 104 mmol/L 95-114 [facility] Serum or plasma creatinine m easurement with calculation of estimated glomerular filtron 05-05-2020 Creatinine [Mass/Vol] 1.14 mg/dL 0.64-1.27 [facility] Serum or plasma glucose yeni urement (mass/volume)on 05-05-2020 Glucose [Mass/Vol] 178 mg/dL 70-100 [facility] Comment on above: ADA recommended refe rence rangeRandom Glucose Reference Range is dependent on time and content of last meal. Glucose of more than 200 mg/dL in a nonstressed, ambulatory subject supports the diagnosis of Diabetes Mellitus. Serum or plasma potassium me asurement (moles/volume)on 05-05-2020 Potassium [Moles/Vol] 4.0 mmol/L 3.5-5.1 [facility] Serum or plasma sodium measu rement (moles/volume)on 05-05-2020 Sodium [Moles/Vol] 141 mmol/L 136-146 [facility] Serum or plasma total carbon dioxide measurement (moles/volume)on 05-05-2020 CO2 [Moles/Vol] 27.4 mmol/L 22.0-30.0 [facility] Serum or plasma urea nitroge n measurement (mass/volume)on 05-05-2020 Urea nitrogen [Mass/Vol] 18 mg/dL 9-23 [facility] .eGFRon 06-10-2019 eGFR AA >60 Normal >=60 [facility] Comment on above: Result Comment: Resu lt = 0-14.9 mL/min/1.73 m2 Kidney failure or Dialysis Result = 15-29 mL/min/1.73 m2 Severe decrease in GFR Result = 30-59 mL/min/1.73 m2 Moderate decrease in GFR Result >= 60 mL/min/1.73 m2 Normal or increased GFR Performed By: #### E GFR #### [address] [address] eGFR Non-AA >60 Normal >=60 [facility] Comment on above: Result Comment: Resu lt [...] dosing. Performed By: #### E GFR #### [address] [address] Basic Metabolic Profileon Anion gap [Moles/Vol] 15 mmol/L Normal 7-17 [facility] Comment on above: Performed By: #### C [id number] #### [address] [address] Calcium [Mass/Vol] 9.8 mg/dL Normal 8.5-10.3 [facility] Comment on above: Performed By: #### C [id number] #### [address] [address] Chloride [Moles/Vol] 103 mmol/L Normal 98-110 [facility] Comment on above: Performed By: #### C [id number] #### [address] [address] CO2 [Moles/Vol] 27 mmol/L Normal 22-32 [facility] Comment on above: Performed By: #### C [id number] #### [address] [address] Creatinine [Mass/Vol] 0.98 mg/dL Normal 0.61-1.24 [facility] Comment on above: Performed By: #### C [id number] #### [address] [address] Glucose [Mass/Vol] 198 mg/dL High 70-99 [facility] Comment on above: Performed By: #### C [id number] #### [address] [address] Potassium [Moles/Vol] 4.0 mmol/L Normal 3.4-4.8 [facility] Comment on above: Performed By: #### C [id number] #### [address] [address] Sodium [Moles/Vol] 141 mmol/L Normal 133-142 [facility] Comment on above: Performed By: #### C [id number] #### [address] [address] Urea nitrogen [Mass/Vol] 18 mg/dL Normal 8-26 [facility] Comment on above: Performed By: #### C [id number] #### [address] [address] Urea nitrogen/Creatinine [Mass ratio] 18.4 mg/mg Normal 10.0-20.0 [facility] Comment on above: Performed By: #### C [id number] #### [address] [address] CBCon 06-10-2019 Erythrocyte distribution width (RBC) [Ratio] 13.0 % Normal 11.6-14.8 [facility] Comment on above: Performed By: #### C BCI #### [address] [address] Hematocrit (Bld) [Volume fraction] 46.2 % Normal 41.0-53.0 [facility] Comment on above: Performed By: #### C BCI #### [address] [address] Hemoglobin (Bld) [Mass/Vol] 16.2 g/dL Normal 13.5-17.5 [facility] Comment on above: Performed By: #### C BCI #### [address] [address] MCH (RBC) [Entitic mass] 32.1 pg Normal 27.0-35.0 [facility] Comment on above: Performed By: #### C BCI #### [address] [address] MCHC (RBC) [Mass/Vol] 35.0 % Normal 31.0-37.0 [facility] Comment on above: Performed By: #### C BCI #### [address] [address] MCV (RBC) [Entitic vol] 91.6 fL Normal 80.0-100.0 [facility] Comment on above: Performed By: #### C BCI #### [address] [address] Platelet mean volume (Bld) [Entitic vol] 7.5 fL Normal 6.7-10.6 [facility] Comment on above: Performed By: #### C BCI #### [address] [address] Platelets (Bld) [#/Vol] 263 x10*3/mcL Normal 150-350 [facility] Comment on above: Performed By: #### C BCI #### [address] [address] RBC (Bld) [#/Vol] 5.04 x10*6/mcL Normal 4.30-5.80 [facility] Comment on above: Performed By: #### C BCI #### [address] [address] WBC (Bld) [#/Vol] 9.7 x10*3/mcL Normal 4.5-11.0 [facility] Comment on above: Performed By: #### C BCI #### [address] [address] Hgb A1con 06-10-2019 HbA1c (Bld) [Mass fraction] 134 mg/dL High 68-114 [facility] Comment on above: Result Comment: Math ematical Calc approx. The mean gluc equivalency of A1c Performed By: #### H BA1C #### [address] [address] HbA1c (Bld) [Mass fraction] 6.3 % A1c High 4.0-5.6 [facility] Comment on above: Result Comment: Refe rence Range: 4.0 - 5.6 % Normal 5.7 - 6.4 % Pre-Diabetes > 6.5 % Diabetes Performed By: #### H BA1C #### [address] [address] MRSA, PCRon 06-10-2019 INR Coag (Bld) [Relative time] Negative Normal [facility] Comment on above: Result Comment: The [employer] [facility] Xpert MRSA Assay is a qualitative in [...] clinician. Performed By: #### M RSAPC #### [address] [address] PTon 06-10-2019 INR Coag (PPP) [Relative time] 1.0 {INR} Normal <=3.5 [facility] Comment on above: Result Comment: INR has no normal range. INR Therapeutic range is: 2.0-3.0 (AF, CVA, TIAs, DVT prophylaxis, acute DVT) 2.5-3.5 ([facility] heart valves, recurrent thrombosis/emboli) Performed By: #### P TINR #### [address] [address] PT Coag (PPP) [Time] 11.9 s Normal 8.9-11.9 [facility] Comment on above: Performed By: #### P TINR #### [address] [address] PTTon 06-10-2019 aPTT Coag (Bld) [Time] 23.0 s Normal 19.2-27.8 [facility] Comment on above: Performed By: #### P TT #### [address] [address] XR Chest 2 Viewson 0 XR Chest [...] Electronically Signed in Other Vendor System) Normal [facility] XR LUMBAR SPINE (2-3 VIEWS)o n 04-16-2019 [...] Juwan Kumar MD 04/16/19 Final result Normal [facility] Limited range of motion without evidence of instability. Multilevel disc degeneration. [place], [place] EXAMINATION: 2 XRAY VIEWS OF THE [...] lower lumbar spine. Spinous processes appear intact. [facility] Incoming Radiant Results From [employer] - 04/16/2019 11:16 AM EST EXAMINATION: 2 [...] without evidence of instability. [facility] degeneration[facility] LUMBAR SPINE WO CONTRASTo n 04-11-2019 [...] Ahsan Guidry MD 04/11/19 Final result Normal [facility] XR PELVIS (1-2 VIEWS)on 03-28 XR PELVIS [...] Ahsan Guidry MD 04/11/19 Final result Normal [facility] No acute findings. [employer] Phone: EXAMINATION: ONE XRA Y VIEW OF THE PELVIS 04/11/2019 1:24 pm COMPARISON: None. HISTORY: ORDERING SYSTEM PROVIDED HISTORY: fall right buttock pain TECHNOLOGIST PROVIDED HISTORY: fall right buttock pain Reason for Exam: fall buttocks pain Acuity: Acute Type of Exam: Initial FINDINGS: No acute fracture. No widening of the sacroiliac joints. Degenerative changes within the lower lumbar spine. Mild bilateral hip osteoarthritis. [employer] Phone: Josafat, [employer] Incoming Radiant Results From [employer] - 04/11/2019 2:02 PM EST EXAMINATION: ONE [...] bilateral hip osteoarthritis. IMPRESSION: No acute findings. [employer] Work Phone: Vital Signs Date Time Vital Sign Value Performing Clinician Facility 02-13-2024 11:22-0500 Body mass index (BMI) [Ratio] 38.99 kg/m2 Ahsan Nienberg PA Work Phone: [facility] 02-13-2024 11:22-0500 Body weight 119.75 kg Ahsan Nienberg PA Work Phone: [facility] 02-13-2024 11:22-0500 Diastolic blood pressure 100 mm[Hg] Ahsan Nienberg PA Work Phone: [facility] 02-13-2024 11:22-0500 Heart rate 92 /min Ahsan Nienberg PA Work Phone: [facility] 02-13-2024 11:22-0500 Respiratory rate 18 /min Ahsan Nienberg PA Work Phone: [facility] 02-13-2024 11:22-0500 Systolic blood pressure 150 mm[Hg] Ahsan Nienberg PA Work Phone: [facility] 12-05-2023 10:05-0400 Body height 175.3 cm Ahsan Nienberg PA Work Phone: [facility] 12-05-2023 10:05-0400 Body mass index (BMI) [Ratio] 39.28 kg/m2 Ahsan Nienberg PA Work Phone: [facility] 12-05-2023 10:05-0400 Body weight 120.66 kg Ahsan Nienberg PA Work Phone: [facility] 12-05-2023 10:05-0400 Diastolic blood pressure 90 mm[Hg] Ahsan Nienberg PA Work Phone: [facility] 12-05-2023 10:05-0400 Heart rate 91 /min Ahsan Nienberg PA Work Phone: [facility] 12-05-2023 10:05-0400 Respiratory rate 16 /min Ahsan Flynn PA Work Phone: [facility] 12-05-2023 10:05-0400 SaO2% (BldA) [Mass fraction] 95 % Ahsan NOVAK Work Phone: [facility] 12-05-2023 10:05-0400 Systolic blood pressure 131 mm[Hg] Ahsan NOVAK Work Phone: [facility] 11-07-2023 11:09-0400 Body height 175.26 cm [facility] 11-07-2023 11:09-0400 Body mass index (BMI) [Ratio] 39 kg/m2 [facility] 11-07-2023 11:09-0400 Body temperature 97.4 [degF] [facility] 11-07-2023 11:09-0400 Body weight 119.86 kg [facility] 11-07-2023 11:09-0400 Diastolic blood pressure 85 mm[Hg] [facility] 11-07-2023 11:09-0400 Heart rate 88 /min [facility] 11-07-2023 11:09-0400 Respiratory rate 18 /min [facility] 11-07-2023 11:09-0400 SaO2% (BldA) [Mass fraction] 98 % [facility] 11-07-2023 11:09-0400 Systolic blood pressure 123 mm[Hg] [facility] 08-15-2023 11:27-0400 Diastolic blood pressure 84 mm[Hg] Ahsan NOVAK Work Phone: [facility] 08-15-2023 11:27-0400 Heart rate 110 /min Ahsan Flynn PA Work Phone: [facility] 08-15-2023 11:27-0400 Respiratory rate 20 /min Ahsan Flynn PA Work Phone: [facility] 08-15-2023 11:27-0400 Systolic blood pressure 126 mm[Hg] Ahsan Flynn PA Work Phone: [facility] 02-14-2023 11:12-0500 Body height 175.3 cm Ahsan Flynn PA Work Phone: [facility] 02-14-2023 11:12-0500 Body mass index (BMI) [Ratio] 39.43 kg/m2 Ahsan Flynn PA Work Phone: [facility] 02-14-2023 11:12-0500 Body weight 121.11 kg Ahsan Flynn PA Work Phone: [facility] 02-14-2023 11:12-0500 Diastolic blood pressure 94 mm[Hg] Ahsan Flynn PA Work Phone: [facility] 02-14-2023 11:12-0500 Heart rate 89 /min Ahsan Flynn PA Work Phone: [facility] 02-14-2023 11:12-0500 Respiratory rate 18 /min Ahsan Flynn PA Work Phone: [facility] 02-14-2023 11:12-0500 SaO2% (BldA) [Mass fraction] 98 % Ahsan Flynn PA Work Phone: [facility] 02-14-2023 11:12-0500 Systolic blood pressure 143 mm[Hg] Ahsan Flynn PA Work Phone: [facility] 02-07-2023 14:37-0500 Body temperature 98.6 [degF] Riddhi Goss [employer] MACHINE OPERATOR.ROLL UP OPERATOR Work Phone: [facility] 02-07-2023 14:37-0500 Body weight 122.92 kg Riddhi Goss [employer] MACHINE OPERATOR.ROLL UP OPERATOR Work Phone: [facility] 02-07-2023 14:37-0500 Diastolic blood pressure 80 mm[Hg] Riddhi Goss [employer] MACHINE OPERATOR.ROLL UP OPERATOR Work Phone: [facility] 02-07-2023 14:37-0500 Heart rate 79 /min Riddhi Goss [employer] MACHINE OPERATOR.ROLL UP OPERATOR Work Phone: [facility] 02-07-2023 14:37-0500 SaO2% (BldA) [Mass fraction] 98 % Riddhi Goss [employer] MACHINE OPERATOR.ROLL UP OPERATOR Work Phone: [facility] 02-07-2023 14:37-0500 Systolic blood pressure 157 mm[Hg] Riddhi Goss [employer] MACHINE OPERATOR.ROLL UP OPERATOR Work Phone: [facility] 02-04-2023 09:16-0500 Blood Pressure Location Cecelia MURILLO [facility] 02-04-2023 09:16-0500 Diastolic blood pressure 88 mm[Hg] Cecelia MURILLO [facility] 02-04-2023 09:16-0500 Heart rate 79 /min Cecelia MURILLO [facility] 02-04-2023 09:16-0500 Respiratory rate 16 /min Cecelia MURILLO [facility] 02-04-2023 09:16-0500 Systolic blood pressure 139 mm[Hg] Cecelia MURILLO [facility] 12-20-2022 14:26-0400 Body height 175.3 cm Singh Morgan PA-C Work Phone: [facility] 12-20-2022 14:26-0400 Body weight 123.11 kg Singh Morgan PA-C Work Phone: [facility] 12-20-2022 14:26-0400 Diastolic blood pressure 84 mm[Hg] Singh Morgan PA-C Work Phone: [facility] 12-20-2022 14:26-0400 Heart rate 76 /min Singh Morgan PA-C Work Phone: [facility] 12-20-2022 14:26-0400 SaO2% (BldA) [Mass fraction] 97 % Singh Morgan PA-C Work Phone: [facility] 12-20-2022 14:26-0400 Systolic blood pressure 165 mm[Hg] Singh Morgan PA-C Work Phone: [facility] 12-06-2022 15:00-0400 Body height 175.26 cm Oumou Reji Other [employer] Other 12-06-2022 15:00-0400 Body mass index (BMI) [Ratio] 39.9 kg/m2 Oumou Reji Other [employer] Other 12-06-2022 15:00-0400 Body temperature 98.1 [degF] Oumou Reji Other [employer] Other 12-06-2022 15:00-0400 Body weight 122.56 kg Oumou Reji Other [employer] Other 12-06-2022 15:00-0400 Diastolic blood pressure 81 mm[Hg] Oumou Reji Other [employer] Other 12-06-2022 15:00-0400 Respiratory rate 20 /min Oumou Reji Other [employer] Other 12-06-2022 15:00-0400 SaO2% (BldA) [Mass fraction] 97 % Oumou Reji Other [employer] Other 12-06-2022 15:00-0400 Systolic blood pressure 127 mm[Hg] Oumou Reji Other [employer] Other 11-05-2022 14:17-0400 Body height 175.3 cm Thomas Mathew MD Work Phone: [facility] 11-05-2022 14:17-0400 Body weight 123.97 kg Thomas Mathew MD Work Phone: [facility] 11-05-2022 14:17-0400 Diastolic blood pressure 84 mm[Hg] Thomas Mathew MD Work Phone: [facility] 11-05-2022 14:17-0400 Heart rate 66 /min Thomas Mathew MD Work Phone: [facility] 11-05-2022 14:17-0400 SaO2% (BldA) [Mass fraction] 100 % Thomas Mathew MD Work Phone: [facility] 11-05-2022 14:17-0400 Systolic blood pressure 156 mm[Hg] Thomas Mathew MD Work Phone: [facility] 10-17-2022 15:41-0400 Blood Pressure Location Maite SQUIRES [facility] 10-17-2022 15:41-0400 Diastolic blood pressure 84 mm[Hg] Maite SQUIRES [facility] 10-17-2022 15:41-0400 Heart rate 70 /min Maite SQUIRES [facility] 10-17-2022 15:41-0400 Respiratory rate 16 /min Maite SQUIRES [facility] 10-17-2022 15:41-0400 Systolic blood pressure 118 mm[Hg] Maite RICKL [facility] 06-21-2022 10:20-0400 Body height 175.26 cm Oumouyesenia Weinstein Other [employer] Other 06-21-2022 10:20-0400 Body mass index (BMI) [Ratio] 40.02 kg/m2 Oumou Reji Other [employer] Other 06-21-2022 10:20-0400 Body temperature 97.6 [degF] Oumou Reji Other [employer] Other 06-21-2022 10:20-0400 Body weight 122.93 kg Oumou Reji Other [employer] Other 06-21-2022 10:20-0400 Diastolic blood pressure 80 mm[Hg] Oumou Reji Other [employer] Other 06-21-2022 10:20-0400 Respiratory rate 20 /min Oumou Reij Other [employer] Other 06-21-2022 10:20-0400 SaO2% (BldA) [Mass fraction] 97 % Oumou Reji Other [employer] Other 06-21-2022 10:20-0400 Systolic blood pressure 114 mm[Hg] Oumou Reji Other [employer] Other 03-19-2022 09:48-0500 Blood Pressure Location Cecelia LIDIA [facility] 03-19-2022 09:48-0500 Diastolic blood pressure 88 mm[Hg] Cecelia MURILLO [facility] 03-19-2022 09:48-0500 Heart rate 78 /min Cecelia MURILLO [facility] 03-19-2022 09:48-0500 Respiratory rate 16 /min Cecelia MURILLO [facility] 03-19-2022 09:48-0500 Systolic blood pressure 139 mm[Hg] Cecelia MURILLO [facility] 01-11-2022 11:15-0500 Body temperature 98.1 [degF] PHYSICIAN NO [facility] 01-11-2022 11:15-0500 Diastolic blood pressure 88 mm[Hg] PHYSICIAN NO [facility] 01-11-2022 11:15-0500 Heart rate 79 /min PHYSICIAN NO [facility] 01-11-2022 11:15-0500 Respiratory rate 18 /min PHYSICIAN NO [facility] 01-11-2022 11:15-0500 SaO2% (BldA) [Mass fraction] 96 % PHYSICIAN NO [facility] 01-11-2022 11:15-0500 Systolic blood pressure 137 mm[Hg] PHYSICIAN NO [facility] 12-15-2021 12:20-0400 Body height 175.26 cm Estephanie Lowry Other [facility] Other 12-15-2021 12:20-0400 Body mass index (BMI) [Ratio] 41.49 kg/m2 Estephanie Lowry Other [facility] Other 12-15-2021 12:20-0400 Body temperature 98.6 [degF] Estephanie Lowry Other [employer] Other 12-15-2021 12:20-0400 Body weight 127.46 kg Estephanie Lowry Other [employer] Other 12-15-2021 12:20-0400 Diastolic blood pressure 96 mm[Hg] Estephanie Lowry Other [employer] Other 12-15-2021 12:20-0400 Respiratory rate 18 /min Estephanie Hammondmond Other [employer] Other 12-15-2021 12:20-0400 SaO2% (BldA) [Mass fraction] 97 % Estephanie Lowry Other [employer] Other 12-15-2021 12:20-0400 Systolic blood pressure 132 mm[Hg] Estephanie Lowry Other [employer] Other 10-25-2021 14:00-0400 Body height 175.26 cm Oumou Reji Other [employer] Other 10-25-2021 14:00-0400 Body mass index (BMI) [Ratio] 42.02 kg/m2 Oumou Reji Other [employer] Other 10-25-2021 14:00-0400 Body temperature 96.8 [degF] Oumou Reji Other [employer] Other 10-25-2021 14:00-0400 Body weight 129.09 kg Oumou Reji Other [employer] Other 10-25-2021 14:00-0400 Diastolic blood pressure 69 mm[Hg] Oumou Reji Other [employer] Other 10-25-2021 14:00-0400 Respiratory rate 20 /min Oumou Reji Other [employer] Other 10-25-2021 14:00-0400 SaO2% (BldA) [Mass fraction] 98 % Oumou Reji Other [employer] Other 10-25-2021 14:00-0400 Systolic blood pressure 109 mm[Hg] Oumou Reji Other [employer] Other 05-26-2021 10:45-0400 Body temperature 98.8 [degF] Octavio Mcclellan makerist Work Phone: [employer] 05-26-2021 10:45-0400 Respiratory rate 18 /min Octavio Mcclellan makerist Work Phone: [facility] 05-26-2021 10:45-0400 SaO2% (BldA) [Mass fraction] 98 % Octavio Mcclellan makerist Work Phone: [facility] 05-26-2021 07:30-0400 Heart rate 105 /min Octavio Mcclellan makerist Work Phone: [facility] 05-25-2021 23:20-0400 Diastolic blood pressure 85 mm[Hg] Octavio Mcclellan makerist Work Phone: [facility] 05-25-2021 23:20-0400 Systolic blood pressure 130 mm[Hg] Octavio Mcclellan makerist Work Phone: [facility] 05-24-2021 10:15-0400 Body height 175.3 cm Octavio Mcclellan makerist Work Phone: [facility] 05-24-2021 10:15-0400 Body mass index (BMI) [Ratio] 50.65 kg/m2 Octavio Mcclellan makerist Work Phone: [facility] 05-24-2021 10:15-0400 Body weight 155.58 kg Octavio Mcclellan makerist Work Phone: [facility] 05-08-2021 11:04-0400 Body height 175.[address] [facility] 05-08-2021 11:04-0400 Body mass index (BMI) [Ratio] 51.98 kg/m2 St [facility] 05-08-2021 11:04-0400 Body temperature 97.3 [degF] [facility] 11:04-0400 Body weight 159.[address] [facility] 05-08-2021 11:04-0400 Diastolic blood pressure 83 mm[Hg] [address] [place] 05-08-2021 11:04-0400 Heart rate 126 /min [address] [place] 05-08-2021 11:04-0400 Respiratory rate 20 /min [address] [place] 05-08-2021 11:04-0400 SaO2% (BldA) [Mass fraction] 95 % [address] [place] 05-08-2021 11:04-0400 Systolic blood pressure 121 mm[Hg] [address] [facility] 01-08-2020 14:04-0500 BMI (Body Mass Index) 47.99 kg/m2 [facility] 01-08-2020 14:04-0500 Body Temperature 96.69 [degF] [facility] [employer] [facility] 01-08-2020 14:04-0500 Body weight 147.42 kg [facility] [employer] [facility] 01-08-2020 14:04-0500 Height 175.3 cm [facility] [employer] [facility] 04-11-2019 12:42-0500 BMI (Body Mass Index) 44.3 kg/m2 [employer] Work Phone: 04-11-2019 12:42-0500 Body Temperature 97.39 [degF] [employer] Work Phone: 04-11-2019 12:42-0500 Body weight 136.08 kg [employer] Work Phone: 04-11-2019 12:42-0500 BP Diastolic 98 mm[Hg] [employer] Work Phone: 04-11-2019 12:42-0500 BP Systolic 196 mm[Hg] [employer] Work Phone: 04-11-2019 12:42-0500 Height 175.3 cm [facility] 1% Phone: 04-11-2019 12:42-0500 Pulse (Heart Rate) 72 /min [facility]anne [facility] 1% Phone: 04-11-2019 12:42-0500 Pulse Oximetry 96 % [employer] Phone: 04-11-2019 12:42-0500 Respiratory Rate 16 /min [facility] [employer] Work Phone: Encounters Encounter Date Encounter Type Care Provider Facility Start: 08-13-2025 ambulatory Cecelia MURILLO [facility] [place] Start: 08-07-2024 End: 08-07-2024 ambulatory Cecelia MURILLO Facility:[facility] Start: 08-07-2024 End: 08-07-2024 Patient encounter procedure Cecelia [facility]URILLO [facility] Start: 06-22-2024 End: 06-22-2024 ambulatory Cecelia MURILLO Facility:[facility] Start: 06-17-2024 End: 06-17-2024 ambulatory [facility] Start: 05-18-2024 [facility]ulatory [facility] Start: 05-18-2024 End: 05-18-2024 ambulatory [facility] Start: 04-10-2024 End: 04-21-2024 Telephone encounter Cherelle Oleary RN [facility] Start: 03-03-2024 End: 03-04-2024 Telephone encounter Cherelle Oleary RN [facility] Start: 02-13-2024 End: 02-13-2024 ambulatory AHSAN FLYNN [facility] Start: 02-13-2024 End: 02-13-2024 Office outpatient visit 15 minutes Ahsan Flynn PA Work Phone: [facility] Comment on above: Spinal stenosis, lum bar region, with neurogenic claudication (Primary Dx) Start: 02-03-2024 End: 02-03-2024 ambulatory Cecelia MURILLO Facility:[facility] Start: 02-03-2024 End: 02-03-2024 Patient encounter procedure Cecelia MURILLO [facility] Start: 12-05-2023 End: 12-05-2023 ambulatory [facility] Start: 12-05-2023 End: 12-05-2023 Office outpatient visit 15 minutes Ahsan NOVAK Work Phone: [facility] Comment on above: Spinal stenosis, lum bar region, with neurogenic claudication (Primary Dx) Start: 11-07-2023 End: 11-07-2023 ambulatory [facility] Work Phone: Start: 11-07-2023 End: 11-07-2023 Patient encounter procedure [facility] Physician [facility] Nephrology Reg Work Phone: Start: 10-29-2023 Non-patient / Non-visit [facility] Physician [facility] Work Phone: Start: 10-07-2023 End: 06-25-2024 Telephone encounter Thomas Mathew MD Work Phone: Neurology Comment on above: Appointment Start: 10-04-2023 Telephone encounter Thomas crabtree MD Work Phone: Neurology Comment on above: Results Start: 08-15-2023 End: 08-15-2023 Office outpatient visit 15 minutes Ahsan NOVAK Work Phone: [facility] Comment on above: Spinal stenosis, lum bar region, with neurogenic claudication (Primary Dx) Start: 08-15-2023 End: 08-15-2023 ambulatory [facility] Start: 07-30-2023 Telephone encounter Thomas crabtree MD Work Phone: Neurology Comment on above: Appointment; Orders Start: 07-23-2023 Telephone encounter Thomas crabtree MD Work Phone: Neurology Start: 05-08-2023 End: 05-08-2023 ambulatory Thomas Mathew MD Work Phone: Neurosurgery Comment on above: Radiculopathy, lumba r region (Primary Dx) Start: 05-08-2023 End: 05-08-2023 Telemedicine consultation with patient Thomas Mathew MD Work Phone: [facility] Start: 05-08-2023 Telephone encounter Cherelle Oleary RN [facility] Start: 05-07-2023 Telephone encounter Cherelle Oleary RN [facility] Start: 04-16-2023 Telephone encounter Thomas crabtree MD Work Phone: Neurology Comment on above: Imaging Disc Start: 04-10-2023 Telephone encounter Thomas crabtree MD Work Phone: Neurology Comment on above: PT Certification Start: 04-09-2023 Telephone encounter Thomas crabtree MD Work Phone: Neurology Start: 02-14-2023 End: 02-14-2023 Office outpatient visit 15 minutes Ahsan NOVAK Work Phone: [facility] Comment on above: Spinal stenosis, lum bar region, with neurogenic claudication (Primary Dx) Start: 02-07-2023 End: 02-07-2023 Patient encounter procedure Riddhi Goss [employer] MACHINE OPERATOR.ROLL UP OPERATOR Work Phone: Neurosurgery Comment on above: 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) Start: 02-07-2023 Telephone encounter Thomas crabtree MD Work Phone: Neurosurgery Start: 02-04-2023 End: 02-04-2023 Patient encounter procedure Cecelia Jj LIDIA [facility] Laura Start: 01-23-2023 Telephone encounter Thomas [...] Evaluation and management of inpatient THOMAS MATHEW Facility:[facility] Start: 12-06-2022 End: 12-06-2022 ambulatory Oumou Weinstein Other [employer] Other Start: 12-06-2022 Office outpatient vi sit 25 minutes Oumou Weinstein [facility] Nephrology Reg Start: 11-21-2022 End: 11-21-2022 ambulatory MAITE GALLOWAY Facility:[facility] Start: 11-21-2022 End: 11-21-2022 ambulatory BLAYNE ISABEL Facility:[facility] Start: 11-21-2022 End: 11-21-2022 ambulatory BLAYNE ISABEL Facility:[facility] Start: 11-21-2022 Encounter for other preprocedural examination BLAYNE ISABEL [facility] Start: 11-05-2022 End: 11-05-2022 Patient encounter procedure Thomas Mathew MD Work Phone: Neurosurgery Comment on above: 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 Facility:[facility] Start: 06-21-2022 End: 06-21-2022 ambulatory Oumou Reji Other [employer] Other Start: 06-21-2022 Office outpatient vi sit 25 minutes Oumou Reji [facility] Start: 06-11-2022 End: 06-12-2022 ambulatory OUMOU REJI Facility:[facility] Start: 04-03-2022 End: 04-03-2022 ambulatory Oumou Reji Other [employer] Other Start: 04-03-2022 Telephone encounter Oumou Reji [facility] Start: 03-20-2022 Encounter for preprocedural laboratory examination DR DOCTOR MILES [facility] Start: 03-19-2022 End: 03-19-2022 Patient encounter procedure Cecelia MURILLO [facility] Start: 03-15-2022 End: 03-16-[address] DOCTOR MILES Facility:[facility] Start: 03-15-2022 End: 03-16-2022 Encounter for preprocedural laboratory examination DR DOCTOR MILES Facility:[facility] Start: 03-12-2022 End: 03-13-[address] CECELIA MURILLO . Facility:[facility] Start: 03-08-2022 End: 03-09-[address] DOCTOR MILES Facility:[facility] Start: 01-27-2022 Encounter for genera l adult medical examination without abnormal findings DR BLAYNE ISABEL . [facility] Start: 01-24-2022 End: 01-25-[address] BLAYNE ISABEL . Facility:[facility] Start: 01-24-2022 End: 01-25-2022 Encounter for general adult medical examination without abnormal findings DR BLAYNE ISABEL . Facility:[facility] Start: 01-22-2022 End: 01-22-2022 ambulatory Oumou Reji Other [employer] Other Start: 01-22-2022 Telephone encounter Oumou Reji [facility] Start: 01-11-2022 End: 01-11-2022 ambulatory PHYSICIAN NO FAMILY Facility:[facility] Start: 01-11-2022 End: 01-11-2022 ambulatory PHYSICIAN NO [facility] Work Phone: Start: 01-11-2022 End: 01-11-2022 Discharged Recurring PHYSICIAN NO [facility]-Infusion Therapy - O/P Start: 01-10-2022 End: 01-10-2022 ambulatory Oumou Reji Other [employer] Other Start: 01-10-2022 Telephone encounter Oumou Reji [facility] Start: 01-02-2022 End: 01-02-2022 ambulatory Oumou Reji Other [employer] Other Start: 01-02-2022 Telephone encounter Oumou Reji [facility] Start: 01-01-2022 End: 01-01-2022 ambulatory Oumou Reji Other [employer] Other Start: 01-01-2022 Telephone encounter Oumou Reji [facility] Start: 12-21-2021 End: 12-22-[address] BLAYNE ISABEL . 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 Facility:[facility] Start: 10-31-2021 End: 11-01-[address] BLAYNE ISABEL . Facility:[facility] Start: 10-25-2021 End: 10-25-2021 ambulatory Oumou Reji Other [employer] Other Start: 10-25-2021 Office outpatient ne w 45 minutes Oumou Reji [facility] Start: 10-18-2021 End: 10-19-[address] BLAYNE ISABEL . Facility:[facility] Start: 10-17-2021 Encounter for other specified special [facility] Start: 10-17-2021 Encounter for preprocedural laboratory examination [facility] Start: 10-16-2021 End: 10-17-[address] BLAYNE ISABEL . Facility:[facility] Start: 10-16-2021 End: 10-17-2021 Encounter for other specified special examinations DR DOCTOR MILES Facility:[facility] Start: 10-13-2021 End: 10-21-2021 ambulatory PHYSICIAN BRADFORD Facility:[facility] Start: 10-10-2021 End: 10-11-[address] BLAYNE [...] Evaluation and management of inpatient LEISA PERRY [facility] Start: 05-24-2021 End: 05-26-2021 ambulatory OCTAVIO Jj [facility] Start: 05-24-2021 End: 05-26-2021 Subsequent hospital visit by physician Octavio Mcclellan DO Work Phone: [facility] Ortho/Med Surg Comment on above: S/P laparoscopic sle may gastrectomy (Primary Dx) Start: 05-08-2021 End: 05-08-2021 Subsequent hospital visit by physician Twyla Pat 2 [facility] Pre-Admit Testing Comment on above: Canceled (Other) Start: 05-08-2021 End: 05-11-2021 ambulatory OCTAVIO MCCLELLAN [facility] Start: 05-08-2021 End: 05-13-2021 ambulatory OCTAVIO Jj [facility] Start: 05-08-2021 End: 05-10-2021 Patient encounter status Stv Xr [facility] Radiology Start: 05-08-2021 End: 05-10-2021 Subsequent hospital visit by physician Glory Mccracken Xr [facility] Radiology Comment on above: Pre-op chest exam Start: 05-08-2021 End: 05-12-2021 Subsequent hospital visit by physician Twyla Mccracken Rm 2 [facility] Pre-Admit Testing Start: 05-05-2020 End: 05-05-2020 Patient encounter procedure Blayne Bañuelosy -Pre-Surgical Testing Start: 02-04-2020 End: 02-04-2020 Subsequent hospital visit by physician Suzanne Pruett Work Phone: [facility] Echocardi[facility] Comment on above: Arrived Start: 01-08-2020 End: 01-08-2020 Subsequent hospital visit by physician Alexandro Muhammad Work Phone: [facility] Radiology Start: 01-08-2020 End: 01-08-2020 Office outpatient new 30 minutes Alexandro Muhammad Work Phone: [facility] Comment on above: Fluid retention in l egs (Primary Dx) Start: 06-10-2019 End: 06-11-2019 Patient encounter procedure [facility] Facility:[facility] Start: 04-16-2019 End: 04-19-2019 Patient encounter procedure ARSENIO BHATTI [facility] Start: 04-16-2019 End: 04-18-2019 Subsequent hospital visit by physician Nelson Xr Room 4 [facility] Comment on above: Injury Start: 04-11-2019 End: 04-11-2019 Emergency department [facility] Start: 04-11-2019 End: 04-11-2019 Emergency department patient visit [facility] Work Phone: [facility] ED Comment on above: Acute bilateral low back pain with right-sided sciatica (Primary Dx); Traumatic buttock pain Procedures Date Procedure Procedure Detail Performing Clinician Start: 11-21-2022 Antibody screen BLAYNE ISABEL Comment on above: Order Comment: Speci men Type: BLOOD SPECIMENOrdering Facility: [facility] Address: [address] [place], [place] [id number] Performed By: #### T [id number] ####CC MAIN BLOOD BANKCLIA [id number] [facility] [id number] [place], [place] [id number] [place] Start: 02-25-2022 Arthroplasty of knee Pa hiram MURILLO Start: 02-25-2022 Lumbar spinal fusion Pa zelalemvarghese MURILLO Start: 01-24-[address] SHERRI MURILLO . Comment on above: Performed By: #### P TT #### [facility] [address] [place] [address] Dr. Hugh Landis Start: 07-13-2021 Cystoscopic removal [...] Start: 05-08-2021 Assay of nicotine Ever Mcclellan makerist Work Phone: Start: 05-08-2021 Basic metabolic pane [...] Cancer Screening Discussion Prostate Cancer Screening Discussion [facility] Start: 01-24-2027 Prostate specific antigen measurement Prostate Cancer Screening Discussion [facility] Start: 02-12-2025 Adult BMI Screening Adult BMI Screening [facility] Start: 02-12-2025 Tobacco Screening Tobacco Screening [facility] Start: 12-04-2024 Adult BMI Screening Adult BMI Screening [facility] Start: 12-04-2024 Tobacco Screening Tobacco Screening [facility] Start: 10-26-2024 Influenza vaccination Influenza Vaccine (Season Ended) [facility] Start: 08-14-2024 Tobacco Screening Tobacco Screening [facility] Start: 02-15-2024 Adult BMI Screening Adult BMI Screening [facility] Start: 02-15-2024 Tobacco Screening Tobacco Screening [facility] Start: 02-13-2024 End: 02-13-2024 Patient encounter procedure 02/13/2024 10:45 AM EST Office Visit [facility] [address] [place] [address] Ahsan Flynn, PA [address] [place] [address] [facility] Start: 12-12-2023 Creatinine measurement Serum Creatinine [facility] Start: 12-12-2023 Serum Creatinine Serum Creatinine [facility] Start: 10-27-2023 Covid-19 Vaccine () Covid-19 Vaccine ( season) [facility] Start: 10-27-2023 Influenza vaccination [facility] Start: 10-07-2023 End: 10-07-2023 Follow-up encounter Neurosurgery Comment on above: FOLLOW UP Start: 2023 RSV Vaccine (1 - 1-dose 60+ series) RSV Vaccine (1 - 1-dose 60+ series) [facility] Start: 2023 RSV Vaccine (1 - Risk 60-74 years 1-dose series) RSV Vaccine (1 - Risk 60-74 years 1-dose series) [facility] Start: 08-15-2023 End: 08-15-2023 Patient encounter procedure 08/15/2023 11:15 AM EDT Office Visit [facility] [address] [place] [id number] Ahsan Flynn PA [address] [place] [address] [facility] Pain [facility] Start: 05-22-2023 Hemoglobin A1c measurement HbA1C [facility] Start: 05-22-2023 Hemoglobin A1c/Hemoglobin.total in Blood HbA1C [facility] Start: 02-25-2023 Behavioral Health Screening Behavioral Health Screening [facility] Start: 02-25-2023 Depression Assessment Depression Assessment [facility] Start: 01-20-2023 End: 01-19-2024 Radex spine lumbosacral 2/3 views XR LUMBAR LIMITED 2V AP/LAT Radiology Routine Lumbar adjacent segment disease with spondylolisthesis Expected: 01/20/2023, Expires: 01/19/2024 [facility] Work Phone: Comment on above: Expected: 01/20/2023, Expires: Start: 10-26-2022 Covid-19 Vaccine ( season) Covid-19 Vaccine ( season) [facility] Start: 10-26-2022 Influenza vaccination [facility] Start: 05-25-2022 Creatinine measurement Creatinine monitoring [facility] Start: 05-25-2022 Potassium monitoring Potassium monitoring [facility] Start: 05-08-2022 Creatinine measurement Creatinine monitoring [facility] Start: 05-08-2022 Potassium monitoring Potassium monitoring [facility] Start: 02-25-2022 DEPRESSION ASSESSMENT DEPRESSION ASSESSMENT [facility] Start: 01-03-2022 Hemoglobin A1c measurement A1C test (Diabetic or Prediabetic) [facility] Start: 01-03-2022 Lipid panel Lipid screen [facility] Start: 10-26-2021 Influenza vaccination Flu vaccine (Season Ended) [facility] Start: 06-06-2021 End: 06-06-2021 Patient encounter procedure 06/06/2021 Office Visit Oncology Spencer Guy MD [address] [place] [address] [facility] Start: 06-02-2021 End: 06-02-2021 Patient encounter procedure 06/02/2021 Office Visit Bariatrics Octavio Mcclellan DO [address] [place] [id number] [facility] Invasive Bariatric Surg Start: 05-24-2021 End: 05-24-2021 Admission to same day surgery center [facility] OR Comment on above: XI ROBOTIC LAPOROSCOPIC GASTRECTOMY SLEE VE, LIVER BIOPSY, EGD- GI SCHEDULED XI ROBOTIC LAPOROSCO PIC GASTRECTOMY SLEEVE, LIVER BIOPSY, EGD- GI SCHEDULED, POSSIBLE OPEN Start: 05-24-2021 End: 05-24-2021 Laps gstrc rstrictiv px longitudinal gastrectomy [facility] [place] Start: 05-24-2021 Subsequent hospital visit by physician 05/24/2021 Hospital Encounter IP Unit Octavio Mcclellan DO [address] [place] [id number] [facility] Start: 05-19-2021 End: 05-19-2021 Patient encounter procedure 05/19/2021 Appointment Pre-Admission Testing [facility] PRE ADMIT Start: 05-18-2021 End: 05-18-2021 Patient encounter procedure 05/18/2021 Office Visit Bariatrics JerodOctavio, DO [address] [place] [id number] [facility] Invasive Bariatric Surg Start: 10-26-2020 Influenza vaccination Flu vaccine (#1) [facility] Start: 04-04-2020 End: 04-04-2020 Office Visit 04/04/2020 Office Visit Cardiovascular Medicine Suzanne Pruett MD [address] [place] [address] [phone] [facility] Cardiology Start: 02-02-2020 End: 02-02-2020 Office Visit 02/02/2020 Office Visit Cardiovascular Medicine Suzanne Pruett MD [address] [place] [address] [phone] [facility] Start: 10-27-2019 Influenza vaccination INFLUENZA VACCINE (#1) [facility] Start: 10-26-2018 Influenza vaccination Flu vaccine (#1) [facility] Phone: Start: 09-10-2018 PROSTATE CANCER SCREENING DISCUSSION PROSTATE CANCER SCREENING DISCUSSION [facility] Start: 09-10-2013 Administration of varicella zoster vaccine Zoster (Shingles) Vaccine (1 of 2) [facility] Start: 09-10-2013 Colon cancer screen colonoscopy Colon cancer screen colonoscopy [facility] Phone: Start: 09-10-2013 Colonoscopy COLORECTAL CANCER SCREENING DISCUSSION [facility] Start: 09-10-2013 Prostate specific antigen measurement PROSTATE CANCER SCREENING DISCUSSION [facility] Start: 09-10-2013 Shingles Vaccine (1 of 2) Shingles Vaccine (1 of 2) [facility] Start: 09-10-2013 SHINGRIX VACCINE (1 of 2) SHINGRIX VACCINE (1 of 2) [facility] Start: 09-10-2013 Zoster vaccine hzv live for subcutaneous use ZOSTER (SHINGLES) VACCINE (1 of 2) [facility] Start: 09-10-2008 COLOGUARD (FIT-DNA) COLOGUARD (FIT-DNA) [facility] Start: 09-10-2008 Colonoscopy COLONOSCOPY [facility] Start: 09-10-2008 COLORECTAL CANCER SCREENING COLORECTAL CANCER SCREENING [facility] Start: 09-10-[address] COLONOGRAPHY [facility] Start: 09-10-2008 DIABETES SCREEN DIABETES SCREEN [facility] Start: 09-10-2008 Diabetes Screening Diabetes Screening [facility] Start: 09-10-2008 FECAL OCCULT BLOOD FECAL OCCULT BLOOD [facility] Start: 09-10-2008 Screening for malignant neoplasm of colon [facility] Start: 09-10-2008 SIGMOIDOSCOPY SIGMOIDOSCOPY [facility] Start: 2003 Diabetes screen Diabetes screen [facility] [employer] Phone: Start: 2003 Fasting lipid profile LIPID SCREENING [facility] [employer] Start: 2003 Lipid screen Lipid screen [facility] Phone: Start: 09-10-1998 Lipid 1996 panel - Serum or Plasma Lipid Screening [facility] Start: 09-10-1998 LIPID SCREEN LIPID SCREEN [facility] Start: 09-10-1982 DTaP,Tdap and Td Vaccines (1 - Tdap) DTaP,Tdap and Td Vaccines (1 - Tdap) [facility] Start: 09-10-1982 DTaP/Tdap/Td vaccine (1 - Tdap) DTaP/Tdap/Td vaccine (1 - Tdap) [facility] Start: 09-10-1982 Hepatitis B vaccine (1 of 3 - Risk 3-dose series) Hepatitis B vaccine (1 of 3 - Risk 3-dose series) [facility] Start: 09-10-1982 Pneumococcal Vaccine: 50+ (1 of 2 - PCV) Pneumococcal Vaccine: 50+ (1 of 2 - PCV) [facility] Start: 09-10-1982 Third diphtheria, tetanus and acellular pertussis (DTaP) vaccination TDAP (ADULT) [facility] Start: 09-10-1982 Urine microalbumin profile [facility] Start: 09-10-1981 Adult BMI Follow Up Plan Adult BMI Follow Up Plan [facility] Start: 09-10-1981 Annual PCP Team Chronic Disease Visit Annual PCP Team Chronic Disease Visit [facility] Start: 09-10-1981 BP Controlled (<130/80) BP Controlled (<130/80) [facility] Start: 09-10-1981 Depression Screening Depression Screening [facility] Start: 09-10-1981 Diabetic retinal exam Diabetic retinal exam [facility] Start: 09-10-1981 Hepatitis B surface antibody level LDL Cholesterol [facility] Start: 09-10-1981 HEPATITIS C SCREENING HEPATITIS C SCREENING [facility] Start: 09-10-1981 Hepatitis C screening Hepatitis C Screening [facility] Start: 09-10-1981 HIV SCREENING HIV SCREENING [facility] Start: 09-10-1981 HIV screening HIV Screening [facility] Start: 09-10-1981 Tetanus vaccination TETANUS [facility] Start: 09-10-1981 Urine screening for protein Diabetic microalbuminuria test [facility] Start: 09-10-1978 HIV screen HIV screen [facility] Phone: Start: 09-10-1978 HIV screening HIV screen [facility] Start: 09-10-1976 HIV screening HIV SCREENING DISCUSSION [facility] Start: 1975 Depression Screen Depression Screen [facility] Start: 1975 Depression Screening Depression Screening [facility] Start: 09-10-1974 DTaP/Tdap/Td vaccine (1 - Tdap) DTaP/Tdap/Td vaccine (1 - Tdap) [facility] [employer] Phone: Start: 09-10-1973 3 comp foot exam completed Diabetic Foot Exam [facility] Start: 09-10-1973 Diabetic foot examination Diabetic foot exam [facility] Start: 09-10-1973 Glaucoma screening Dilated Retinal Exam [facility] Start: 09-10-1973 Hepatitis B screening Urine Albumin:Creatinine Ratio [facility] Start: 09-10-1973 Hepatitis C antibody, confirmatory test Dilated Retinal Exam [facility] Start: 09-10-1969 Pneumococcal 0-64 years Vaccine (1 of 2 - PPSV23) Pneumococcal 0-64 years Vaccine (1 of 2 - PPSV23) [facility] Start: 09-10-1969 Pneumococcal vaccination [facility] Start: 09-10-1968 COVID-19 Vaccine (1) COVID-19 Vaccine (1) [facility] Start: 03-13-1964 COVID-19 VACCINE (#1) COVID-19 VACCINE (#1) [facility] Start: 1965 Hepatitis C antibody, confirmatory test HEPATITIS C VIRUS SCREENING [facility] Start: 1965 Hepatitis C screen Hepatitis C screen [facility] Phone: Start: 1965 Hepatitis C screening Hepatitis C screen [facility] Start: 1965 Potassium [Moles/Vol] POTASSIUM [employer] Bacteria identified in Urine by Culture [facility] Chlamydia trachomati s DNA [Presence] in Unspecified specimen by MUKUL with probe detection [facility] Work Phone: Continuous pulse oximetry Pulse oximetry, continuous Respiratory Care Routine Every 4hr until discontinued starting 05/24/2021 [facility] Phone: Comment on above: Every 4hr until discontinued starting CT LUMBAR SPINE WO CONTRAST CT LUMBAR SPINE WO CONTRAST Imaging STAT 04/11/2019 1:43 PM EST [facility] Phone: Neisseria gonorrhoea e DNA [Presence] in Unspecified specimen by MUKUL with probe detection [facility] Work Phone: Oxygen therapy [[facility] Data Set] Initiate Oxygen Therapy Protocol Respiratory Care Routine As Needed until discontinued starting 05/24/2021 [facility] Phone: Comment on above: As Needed until discontinued starting Radiography for bone length studies XR BONE LENGTH STUDY Imaging Routine Hx of total knee arthroplasty, right 01/08/2020 1:37 PM EST [facility] Renal function 2000 panel - Serum or Plasma [facility] Spirometry panel Incentive silverio metry Respiratory Care Routine Every 2hr while awake until discontinued starting 05/24/2021 [facility] Phone: Comment on above: Every 2hr while awake until discontinued starting 05/24/2021 Surgical Pathology Surgical Path ology Lab Routine Release Upon Ordering for 1 Occurrences starting 05/24/2021 [facility] Phone: Comment on above: Release Upon Ordering for 1 Occurrences starting 05/24/2021 Trichomonas vaginali s DNA [Presence] in Unspecified specimen by MUKUL with probe detection [facility] Work Phone: X-ray of right knee XR KNEE RIGH T 3 VIEWS Imaging Routine Hx of total knee arthroplasty, right 01/08/2020 1:37 PM [facility] End: 06-06-2024 XR Lumbar spine AP and Lateral XR LUMBAR LIMITED 2V AP/LAT Radiology Routine Radiculopathy, lumbar region 1 Occurrences starting 05/08/2023 until 06/06/2024 [facility] Work Phone: Comment on above: 1 Occurrences starting 05/08/2023 until 06/06/2024 [facility] Immunizations Immunization Date Immunization Notes Care Provider Jazmin mariscal 05-08-2023 influenza virus vacc ine, unspecified formulation Thomas Mathew MD Work Phone: [facility] Payers Date Payer Category Payer Self-pay [id number] 2019 Private Health Insurance xxx [id number] [id number] 2019 Worker's Compensation 2019 Government (not [facility] care or Medicaid) [facility] [place] [address] [id number]. [id number] 2019 Unknown HEALTH MANAGEMEN T SOLUTIONS HEALTH MGMT SOLUTIONS [facility] FUNDED xxxxxxxx 2019-Present [email or web address] [place] [address] xxxxxxxx 1.2.840.337701.1.13.239. 2.7.3.815328.315 2019 Unknown [id number] 2019 Unknown [id number] 2019 Unknown HEALTH MANAGEMEN T SOLUTIONS HEALTH MGMT SOLUTIONS [facility] FUNDED xxxxx 2019-Present [phone] [place] [address] xxxxx 1.2.840.448065.1.13.239. 2.7.3.451928.315 2019 Unknown 1.2.840.256632. 1.13.159. 2.7.3.773408.315 2019 Worker's Comp Other Managed Care [facility] 1.2.840.046581.1.13.424. 2.7.9.302322.306.315 2019 Unknown [id number] 2014 Private Health Insurance [id number] 2014 Private Health Insurance BRENTON Carlos KATI xxxxxxxxxx 2014-Present [phone] [address] [place] [address] xxxxxxxxxx 1.2.840.510400.1.13.239. 2.7.3.657466.315 2013 Private Health Insurance 1965 Unknown [id number] 2.16.840.1.157380.3.579. 2.176 1963 Unknown [id number] 2.16.840.1.883789.3.579. 2.176 1963 Unknown [id number] 2.16.840.1.806835.3.579. 2.176 1963 Unknown [id number] 2.16.840.1.797944.3.579. 2.196 1963 Unknown [id number] 2.16.840.1.635530.3.579. 2.175 1963 Unknown [id number] 2.16.840.1.289470.3.579. 2.647 1963 Unknown [id number] 2.16.840.1.874807.3.579. 2.593 1963 Unknown [id number] 2.16.840.1.671834.3.579. 2.593 1963 Unknown [id number] 2.16.840.1.058332.3.579. 2.593 1963 Unknown [id number] 2.16.840.1.942868.3.579. 2.593 1963 Unknown [id number] 2.16.840.1.374074.3.579. 2.593 1963 Unknown [id number] 2.16.840.1.419657.3.579. 2.593 1963 Unknown [id number] 2.16.840.1.155480.3.579. 2.593 1963 Unknown [id number] 2.16.840.1.400941.3.579. 2.593 1963 Unknown [id number] 2.16.840.1.853136.3.579. 2.593 1963 Unknown [id number] 2.16.840.1.366116.3.579. 2.593 1963 Unknown [id number] 2.16.840.1.700950.3.579. 2.593 1963 Unknown [id number] 2.16.840.1.861352.3.579. 2.59 1963 Unknown [id number] 2.16.840.1.155997.3.579. 2.59 1963 Unknown [id number] 2.16840.1.673113.3.579. 2.59 1963 Unknown [id number] 2.16840.1.045148.3.579. 2.59 1963 Unknown [id number] 2.840.1.451844.3.579. 259 1963 Unknown [id number] 2.840.1.774890.3.579. 259 1963 Unknown [id number] 2.840.1.830675.3.579. 259 1963 Unknown [id number] 2.840.1.431670.3.579. 2.59 1963 Unknown [id number] 2.840.1.245672.3.579. 259 1963 Unknown [id number] 2.840.1.781087.3.579. 2.59 1963 Unknown [id number] 2.840.1.094541.3.579. 2.59 1963 Unknown [id number] 2.840.1.801035.3.579. 2.59 1963 Unknown [id number] 2.840.1.923027.3.579. 2.1286 1963 Unknown [id number] 2.16840.1.580555.3.579. 2.128 1963 Unknown [id number] 2.840.1.562992.3.579. 2.1286 1963 Unknown [id number] 2.16.840.1.002407.3.579. 2.727 1963 Unknown [id number] 2.16.840.1.985037.3.579. 2.727 1963 Unknown [id number] 2.16.840.1.549822.3.579. 2.727 1963 Unknown [id number] 2.16.840.1.703812.3.579. 2.727 1959 Unknown [id number] 1.2.840.055905.1.13.239. 2.7.3.851342.315 1959 Unknown [id number] Self-pay Self Pay [facility]/Pain Mgmt [id number] Unknown [id number] 2.16.840.1.310959.3.579. 2.531 Unknown [id number] 2.16.840.1.937272.3.579. 2.531 Unknown [id number] 2.16.840.1.332669.19 Social History Date Type Detail Facility Start: 04-11-2019 End: 08-07-2024 Tobacco smoking status MDIS Never smoker [facility] Start: 04-11-2019 End: 05-25-2021 Alcohol intake Lifetime non-drinker (finding) [facility] Phone: Start: 04-11-2019 End: 01-08-2020 History SDOH Alcohol Frequency 1 [facility] Phone: Start: 1965 Sex Assigned At Not on file [facility] Phone: Start: 11-26-2013 End: 01-08-2020 Tobacco use and exposure Never used [employer] Start: 1965 Sex Assigned At Male F [facility] Start: 04-08-2021 End: 05-24-2021 Exposure to SARS-CoV-2 (event) Not sure [facility] Phone: Start: 11-05-2022 End: 03-25-2023 Sex Assigned At [facility] Start: 01-26-2014 End: 03-25-2023 Alcohol intake Current non-drinker of alcohol (finding) [facility] Tobacco smoking status Never [facility] Start: 11-05-2022 End: 03-25-2023 [facility] Start: 12-05-2023 End: 02-13-2024 Alcoholic beverage intake [facility]-dr[facility] (finding) [facility] Start: 06-08-2009 End: 09-30-2014 Sex Male (finding) [facility] Sexual Orientation [facility] Medical Equipment Procedure Code Equipment Code Equipment Origin al Text Equipment Identifier Dates CYSTOSCOPY W/ HO MIUM LASER Octavio ARAIZA MD 03/28/20 Unknown Abdomen {[id number] Start: 03-28-2020 Screw Darby 3 Alicia nium Set Merlyn Spine - [id number] Start: 12-07-2022 Screw Darby 3 Serr eladio 6.5mm 50mm Bone Polyaxial Nonsterile Spine - [id number] Start: 12-07-2022 Vitoss Ba2x Bioactive Bone Graft Substitute 5.0cub Cm [id number] Start: 12-07-2022 Cage Tritanium 6 d [id number] Spinal Sterile Latex Free Lumbar Posterior - [id number] Start: 12-07-2022 Cage Tritanium 6 d [id number] Spinal Sterile Latex Free Lumbar Posterior - [id number] Start: 12-07-2022 Screw Darby 3 Serr eladio 6.5mm 45mm Bone Polyaxial Nonsterile Spine - [id number] Start: 12-07-2022 Goals Date Patient Goal Desired Activity /State Functional Status Date Assessment Result Facility 02-04-2023 Functional Status N/A [facility] 12-11-2022 Are you deaf, or do you have serious difficulty hearing No 12/11/2022 12:52 PM EDT Livia Calix RN No [facility] 12-11-2022 Are you blind, or do you have serious difficulty seeing, even when wearing glasses No 12/11/2022 12:52 PM EDT Livia Calix RN No [facility] 12-11-2022 Do you have serious difficulty walking or climbing stairs No 12/11/2022 12:52 PM EDT Livia Calix RN No [facility] 12-11-2022 Do you have difficul ty dressing or bathing No 12/11/2022 12:52 PM EDT Livia Calix RN No [facility] 12-11-2022 Because of a physica l, mental, or emotional condition, do you have difficulty doing errands alone such as visiting a physician's office or shopping No 12/11/2022 12:52 PM EDT Livia Calix RN [facility] 10-17-2022 Functional Status N/A [facility] 03-19-2022 Functional Status N/A [facility] Mental Status Date Assessment Result Facility 12-11-2022 Because of a physica l, mental, or emotional condition, do you have serious difficulty concentrating, remembering, or making decisions No 12/11/2022 12:52 PM EDT Livia Calix RN [facility] Clinical Notes 05-03-2021 to 08-07-2024 Telephone [...] include: ?8 oz (237 mL) of milk, dsmcqve-zqssqrpmmmrq-wijrw milk, and calcium-fortifiedfruit juice. Calcium-fortified means that [...] ?Spinach (cooked), rhubarb, beets, sweet potatoes, and [place]mani chard. ?Peanuts. ?Potato chips, somali fries, and baked potatoes with skin on. ?Nuts and nut products. ?Chocolate. If you regularly take a diuretic medicine, make sure to eat at least 1 or 2 servings of fruits or vegetables that are high in potassium each day. These include: ?Avocado. ?Banana. ?[place], prune, carrot, or tomato juice. ?Baked potato. [...] magnesium, fish oil, or vitamin B6. Take ezqw-meg-vdtjbuy and prescription medicines only as told by [...] Casseroles. Pizza. Lasagna. Frozen meals. Potato chips. [place] fries. The items listed above may not [...] provider. Document Revised: 05/24/2022 Document Reviewed: 05/24/2022 [email or web address] Patient Education 2023 [employer]. Follow Up Care 07/03/2024 14:31:41 With:LIDIA JACOBS, Cecelia Jj, URL Address: [address] [place], [place] [address]- When: Unknown [facility] 08-07-2024 Note Patient Education Nephrology [...] ? 8 oz (237 mL) of milk, gbcwqkn-hlmawegubnar-gxvnx milk, and calcium-fortifiedfruit juice. Calcium-fortified means that [...] Spinach (cooked), rhubarb, beets, sweet potatoes, and [place]mani chard. ? Peanuts. ? Potato chips, somali fries, and baked potatoes with skin on. ? Nuts and nut products. ? Chocolate. ??? If you regularly take a diuretic medicine, make sure to eat at least 1 or 2 servings of fruits or vegetables that are high in potassium each day. These include: ? Avocado. ? Banana. ? [place], prune, carrot, or tomato juice. ? Baked [...] fish oil, or vitamin B6. ??? Take rllb-kob-ijcnolj and prescription medicines only as told by your health (more content not included)... [facility] 06-17-2024 Note Orthopedic Surgery Subjective Chief [...] CT of the right knee completed at [facility] which we do not have access to [...] well perfused extremiti (more content not included)... [facility] 05-18-2024 Note Orthopedic Surgery Subjective [...] CT of the right knee completed at [facility] which we do not have access to [...] the right k (more content not included)... [facility] 04-10-2024 Miscellaneous Notes Patient brought [...] office visit notes can be submitted via [facility] Records. documented in this encounter [employer] 04-10-2024 Telephone encounter Note Patient brought in [...] office visit notes can be submitted via [facility] Medical Records. [facility] 03-03-2024 Miscellaneous Notes Patient called today to follow up on his request for a written statement stating that provider feels that patient is totally disabled. Patient is informed that this office does not write such letters, however, office notes can be faxed to his title attorney's office if that would be beneficial. documented in this encounter [facility] 03-03-2024 Telephone encounter Note Patient called today to follow up on his request for a written statement stating that provider feels that patient is totally disabled. Patient is informed that this office does not write such letters, however, office notes can be faxed to his title attorney's office if that would be beneficial. [facility] 02-13-2024 History of Present illness Narrative [facility] [address] [place] [address] Patient: Sukhdeep Simental Sex: male : 1965 Age: 58 y.o. PCP: BLAYNE ISABEL MD 02/13/2024 Sukhdeep Simental is here for a(n) follow up for his [facility] work injury. 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 Chief Complaint Patient presents with Back Pain [facility] HPI: 12/07/2022 L2/3 fusion and revised L3/4, S1 at [facility] per patient. Bilateral SI joint injection on 04/17/2021 with 10% relief, pain is worse. 07/07/21 Bilateral L3/4 Medial branch block with no relief. right L 3, 4 nerve root injection on 09/01/2021 with no relef. Back Pain This is a chronic problem. The current episode started more than 1 year ago (surgery 10/16/18 discectomy and 07/10/2019 fusion in [place]). The problem occurs constantly. The problem is [...] disorder Claustrophobia Diabetes mellitus type 2, controlled ([facility] Fractures Hyperlipidemia Hypertension Joint pain Low back pain Major depression Obesity Osteoarthritis Pulmonary embolism ([facility] Seasonal allergies Sleep apnea does not use machine Sleep apnea Visual impairment glasses Past Surgical History: Procedure Laterality Date ANKLE SURGERY spurs removed INJECTION BLOCK EPIDURAL CAUDAL STEROID N/A 10/27/2021 Performed by Darren Lackey MD at [facility] INJECTION BLOCK NERVE MEDIAL BRANCH: bilat L 3/4 Bilateral 07/07/2021 Performed by Darren Lackey MD at [facility] INJECTION BLOCK SACROILIAC JOINT Bilateral 04/17/2021 Performed by Darren Lackey MD at [facility] SPINE TRANSFORAMINAL: right L 3,4 Nroot Right 09/01/2021 Performed by Darren Lackey MD at [facility] JOINT REPLACEMENT knees- right x2, left x1 KNEE SURGERY rt knee inf removed tka added rods LITHOTRIPSY LUMBAR DISCECTOMY L4-5 Left 10/16/2018 Performed by Suzanne Silverio DO at [facility] STOMACH SURGERY 04/2021 sleeve Allergies Allergen Reactions [...] Strain: Low Risk (03/28/2022) Re[facility] from [facility] Overall Financial Resource Strain (CARDIA) Difficulty of Paying Living Expenses: Not hard at all Food Insecurity: No Food Insecurity (12/05/2023) Hunger Screening Food Insecurity - Worry: Never True Food Insecurity - Inability: Never True Transportation Needs: Unknown (03/28/2022) Received from [facility] PRAPARE - Transportation Lack of Transportation (Medical): No Lack of Transportation (Non-Medical): Not on file Physical Activity: Inactive (12/01/2021) Received from [facility], [facility] Exercise Vital Sign Days of Exercise per Week: 0 days Minutes of Exercise per Session: 20 min Stress: No Stress Concern Present (12/01/2021) Received from [facility] [employer] [place] of Occupational Health - Occupational Stress Questionnaire Feeling of Stress : Not at all Social Connections: Moderately Isolated (12/01/2021) Received from [facility], [facility] Social Connection and Isolation Panel [NHANES] Frequency of Communication with Friends and Family: More than three times a week Frequency of Social Gatherings with Friends and Family: Once a week Attends Jew Services: Never Active Member of Clubs or Organizations: No Attends Club or Organization Meetings: Never Marital Status: Interpersonal Safety: Unknown (04/18/2023) Received from [facility] [place] Safety & Environment Fear of Current or Ex-Partner: Not on file Emotionally Abused: Not on file Physically Abused: Not on file Sexually Abused: Not on file Physically or Sexually Abused: Not on file Housing Instability: Unknown (03/28/2022) Received from [facility], [facility] Housing Stability Vital Sign Unable to Pay [...] Agustin 02/13/24 1603 documented in this encounter [facility] 12-05-2023 History of Present illness Narrative [facility] [address] [place] [address] Patient: Sukhdeep Simental Sex: male : 1965 Age: 58 y.o. PCP: BLAYNE ISABEL MD 12/05/2023 Sukhdeep Simental is here for a(n) follow up for his [facility] work injury. He reports he remains about the same as last visit. Chief Complaint Patient presents with Back Pain HPI: 12/07/2022 L2/3 fusion and revised L3/4, S1 at [facility] per patient. Bilateral SI joint injection on 04/17/2021 with 10% relief, pain is worse. 07/07/21 Bilateral L3/4 Medial branch block with no relief. right L 3, 4 nerve root injection on 09/01/2021 with no relef. Back Pain This is a chronic problem. The current episode started more than 1 year ago (surgery 10/16/18 discectomy and 07/10/2019 fusion in [place]). The problem occurs constantly. The problem is [...] type 2, controlled ([facility]) Fractures Hyperlipidemia Hypertension Joint pain Low back pain Major depression Obesity Osteoarthritis Pulmonary embolism ([facility]) Seasonal allergies Sleep apnea does not use machine Sleep apnea Visual impairment glasses Past Surgical History: Procedure Laterality Date ANKLE SURGERY spurs removed INJECTION BLOCK EPIDURAL CAUDAL STEROID N/A 10/27/2021 Performed by Darren Lackey MD at [facility] INJECTION BLOCK NERVE MEDIAL BRANCH: bilat L 3/4 Bilateral 07/07/2021 Performed by Darren Lackey MD at [facility] INJECTION BLOCK SACROILIAC JOINT Bilateral 04/17/2021 Performed by Darren Lackey MD at [facility] INJECTION SPINE TRANSFORAMINAL: right L 3,4 Nroot Right 09/01/2021 Performed by Darren Lackey MD at [facility] JOINT REPLACEMENT knees- right x2, left x1 KNEE SURGERY rt knee inf removed tka added rods LITHOTRIPSY LUMBAR DISCECTOMY L4-5 Left 10/16/2018 Performed by Suzanne Silverio DO at [facility] STOMACH SURGERY 04/2021 sleeve Allergies Allergen Reactions [...] Strain: Low Risk (03/28/2022) Received from [facility] Overall Financial Resource Strain (CARDIA) Difficulty of Paying Living Expenses: Not hard at all Food Insecurity: No Food Insecurity (12/05/2023) Hunger Screening Food Insecurity - Worry: Never True Food Insecurity - Inability: Never True Transportation Needs: Unknown (03/28/2022) Received from [facility] PRAPARE - Transportation Lack of Transportation (Medical): No Lack of Transportation (Non-Medical): Not on file Physical Activity: Inactive (12/01/2021) Received from [facility] Exercise Vital Sign Days of Exercise per Week: 0 days Minutes of Exercise per Session: 20 min Stress: No Stress Concern Present (12/01/2021) Received from [facility] [employer] [place] [employer]ational [employer] - Occupational Stress Questionnaire Feeling of Stress : Not at all Social Connections: Moderately Isolated (12/01/2021) Received from [facility] Social Connection and Isolation Panel [NHANES] Frequency of Communication with Friends and Family: More than three times a week Frequency of Social Gatherings with Friends and Family: Once a week Attends Jew Services: Never Active Member of Clubs or Organizations: No Attends Club or Organization Meetings: Never Marital Status: Interpersonal Safety: Unknown (04/18/2023) Received from [facility] Safety & Environment Fear of Current or Ex-Partner: Not on file Emotionally Abused: Not on file Physically Abused: Not on file Sexually Abused: Not on file Physically or Sexually Abused: Not on file Housing Instability: Unknown (03/28/2022) Received from [facility] Housing Stability Vital Sign Unable to Pay for Housing in the Last Year: Not on file Number of Places Lived in the Last Year: Not on file In the last 12 months, was there a time when you did not have a steady place to sleep or slept in a mcc (including now)?: No Review of Systems Constitutional: [...] Agustin 12/12/23 0942 documented in this encounter [facility] 10-07-2023 Telephone encounter Note Pt phoned to ensure todays appt was via phone as noted in appt. Pt unable to manage computer. [facility] 10-07-2023 Miscellaneous Notes Pt phoned to ensure todays appt was via phone as noted in appt. Pt unable to manage computer. documented in this encounter [facility] 10-04-2023 Telephone encounter Note [facility] report XR Lumbar Spine 2-3v scanned to Epic [facility] 10-04-2023 Miscellaneous Notes [facility] report XR Lumbar Spine 2-3v scanned to Epic documented in this encounter [facility] 08-15-2023 History of Present illness Narrative [facility] [address] [place] [address] Patient: Sukhdeep Simental Sex: male : 1965 Age: 57 y.o. PCP: BLAYNE ISABEL MD 08/15/2023 Sukhdeep Simental is here for a(n) follow up for his [facility] work injury. He reports he has pain higher than before surgery. Chief Complaint Patient presents with Back Pain HPI: 12/07/2022 L2/3 fusion and revised L3/4, S1 at [facility] per patient. Bilateral SI joint injection on 04/17/2021 with 10% relief, pain is worse. 07/07/21 Bilateral L3/4 Medial branch block with no relief. right L 3, 4 nerve root injection on 09/01/2021 with no relef. Back Pain This is a chronic problem. The current episode started more than 1 year ago (surgery 10/16/18 discectomy and 07/10/2019 fusion in [place]). The problem occurs constantly. The problem has [...] type 2, controlled ([facility]) Fractures Hyperlipidemia Hypertension Joint pain Low back pain Major depression Obesity Osteoarthritis Pulmonary embolism ([facility]) Seasonal allergies Sleep apnea does not use machine Sleep apnea Visual impairment glasses Past Surgical History: Procedure Laterality Date ANKLE SURGERY spurs removed INJECTION BLOCK EPIDURAL CAUDAL STEROID N/A 10/27/2021 Performed by Darren Lackey MD at [facility] INJECTION BLOCK NERVE MEDIAL BRANCH: bilat L 3/4 Bilateral 07/07/2021 Performed by Darren Lackey MD at [facility] INJECTION BLOCK SACROILIAC JOINT Bilateral 04/17/2021 Performed by Darren Lackey MD at [facility] SPINE TRANSFORAMINAL: right L 3,4 Nroot Right 09/01/2021 Performed by Darren Lackey MD at [facility] JOINT REPLACEMENT knees- right x2, left x1 KNEE SURGERY rt knee inf removed tka added rods LITHOTRIPSY LUMBAR DISCECTOMY L4-5 Left 10/16/2018 Performed by Suzanne Silverio DO at [facility] STOMACH SURGERY 04/2021 sleeve Allergies Allergen Reactions [...] Low Risk (03/28/2022) Received from [facility] Overall Financial Resource Strain (CARDIA) Difficulty of Paying Living Expenses: Not hard at all Food Insecurity: No Food Insecurity (08/15/2023) Hunger Screening Food Insecurity - Worry: Never True Food Insecurity - Inability: Never True Transportation Needs: Unknown (03/28/2022) Received from [facility] PRAPARE - Transportation Lack of Transportation (Medical): No Lack of Transportation (Non-Medical): Not on file Physical Activity: Inactive (12/01/2021) Received from [facility] Exercise Vital Sign Days of Exercise per Week: 0 days Minutes of Exercise per Session: 20 min Stress: No Stress Concern Present (12/01/2021) Received from [facility] [employer] [place] [employer] Health - Occupational Stress Questionnaire Feeling of Stress : Not at all Social Connections: Moderately Isolated (12/01/2021) Received from [facility] Social Connection and Isolation Panel [NHANES] Frequency of Communication with Friends and Family: More than three times a week Frequency of Social Gatherings with Friends and Family: Once a week Attends Jew Services: Never Active Member of Clubs or Organizations: No Attends Club or Organization Meetings: Never Marital Status: Interpersonal Safety: Unknown (04/18/2023) Received from [facility] [place] Safety & Environment Fear of Current or Ex-Partner: Not on file Emotionally Abused: Not on file Physically Abused: Not on file Sexually Abused: Not on file Physically or Sexually Abused: Not on file Housing Instability: Unknown (03/28/2022) Received from [facility] Housing Stability Vital Sign Unable to Pay for Housing in the Last Year: Not on file Number of Places Lived in the Last Year: Not on file In the last 12 months, was there a time when you did not have a steady place to sleep or slept in a mcc (including now)?: No Review of Systems Constitutional: [...] Agustin 08/15/23 1311 documented in this encounter [facility] 07-30-2023 Telephone encounter Note Called Sukhdeep, no answer, left VM [facility] Work Phone: 07-30-2023 Miscellaneous Notes Called Sukhdeep, no answer, left VM Have sent XR Lumbar order to [facility] fax # [phone] as requested from patient. Pt phoned regarding upcoming visit 10/06 [employer] appt. Pt unable to manage virtual visit asking for telephone visit. Pt asking how far in advance to do X-Ray. Pt will have X-Ray done locally at [facility]. Please call and advise Pt phone # [phone] documented in this encounter [facility] 07-30-2023 Telephone encounter Note Have sent XR Lumbar order to [facility] fax # [phone] as requested from patient. [facility] 07-30-2023 Telephone encounter Note Pt phoned regarding upcoming visit 10/06 [employer] appt. Pt unable to manage virtual visit asking for telephone visit. Pt asking how far in advance to do X-Ray. Pt will have X-Ray done locally at [facility]. Please call and advise Pt phone # [phone] [facility] 07-26-2023 Telephone encounter Note Office note faxed. Faxed verification received. [facility] 07-26-2023 Miscellaneous Notes Office note faxed. Faxed verification received. Printed for review. Received request from [employer] needing more info, in epic for review. documented in this encounter [facility] 07-23-2023 Telephone encounter Note Printed for review. [facility] 07-23-2023 Telephone encounter Note Received request from [employer] needing more info, in [employer] for review. [facility] 05-08-2023 History of Present illness Narrative SPINE SURGERY FOLLOW UP This is a virtual visit using Audio Only Visit. It required patient-provider interaction for the medical decision making as documented below. I have communicated my name and active licensure. The patient's identity and physical location were verified at the time of this visit. Either the patient or their legal communications representative has been informed of the risks [...] visit. Either the patient or their legal communications representative has been informed of the risks [...] 4:00 PM PAGER: documented in this encounter [facility] 05-08-2023 Miscellaneous Notes A letter was received from the law office of Jasper Loredo. 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 The information was reviewed by Nadiya Flynn PA-C and he would not like to amend the [facility] claim to allow the above mentioned condition. Call placed to the office of Jasper Loredo to inform him of provider's decision. No answer at the time call was made. Message left. documented in this encounter [facility] 05-08-2023 Telephone encounter Note A letter was received from the law office of Jasper Loredo. 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 The information was reviewed by Nadiya Flynn PA-C and he would not like to amend the [facility] claim to allow the above mentioned condition. Call placed to the office of Jasper Loredo to inform him of provider's decision. No answer at the time call was made. Message left. [facility] 05-07-2023 Miscellaneous Notes Call received from Hannah, patient's workers compensation coordinator. She called as patient's MEDCO-14 is expiring soon. Hannah is informed that patient called about this and an updated [employer]CO-14 was completed and faxed on 05/03/2023. Hannah states she is his workers compensation coordinator and would like information sent to her [...] will be 05/15/2023-11/14/2023. [facility] 05-07-2023 Telephone encounter Note Call received from Hannah, patient's workers compensation coordinator. She called as patient's MEDCO-14 is expiring soon. Hannah is informed that patient called about this and an updated [employer]CO-14 was completed and faxed on 05/03/2023. Hannah states she is his workers compensation coordinator and would like information sent to her [...] new dates for restrictions will be 05/15/2023-11/14/2023. [facility] 04-18-2023 Miscellaneous Notes Signed form faxed to number requested. Faxed verification received. Printed for review and signature. Received PT Certification from [facility]. Scanned to chart for provider signature. documented in this encounter [facility] 04-16-2023 Miscellaneous Notes Received imaging disc by mail from [facility]. Disc contains CT Lumbar spine done on 04/03/23. Will place in nurse folder in [address]. documented in this encounter [facility] 04-09-2023 Miscellaneous Notes Called & spoke with Sukhdeep Asked him to obtain imaging disc & send to our office. Will require images to be uploaded to assess for bony fusion at previous surgical site and adjacent segment disease. Received CT Lumbar Spine Report from [facility], in epic to review. documented in this encounter [facility] 02-14-2023 History of Present illness Narrative [facility] [address] [place] [address] Patient: Sukhdeep Simental Sex: male : 1965 Age: 57 y.o. PCP: BLAYNE ISABEL MD 02/14/2023 Sukhdeep Simental is here for a 6 month follow up for his [facility] work injury. Chief Complaint Patient presents with Back Pain HPI: 12/07/2022 L2/3 fusion and revised L3/4, S1 at [facility] per patient. Bilateral SI joint injection on 04/17/2021 with 10% relief, pain is worse. 07/07/21 Bilateral L3/4 Medial branch block with no relief. right L 3, 4 nerve root injection on 09/01/2021 with no relef. Back Pain This is a chronic problem. The current episode started more than 1 year ago (surgery 10/16/18 discectomy and 07/10/2019 fusion in [place]). The problem occurs constantly. The problem has [...] disorder Claustrophobia Diabetes mellitus type 2, controlled ([facility] Fractures Hyperlipidemia Hypertension Joint pain Low back pain Major depression Obesity Osteoarthritis Pulmonary embolism ([facility] Seasonal allergies Sleep apnea does not use machine Sleep apnea Visual impairment glasses Past Surgical History: Procedure Laterality Date ANKLE SURGERY spurs removed INJECTION BLOCK EPIDURAL CAUDAL STEROID N/A 10/27/2021 Performed by Darren Lackey MD at [facility] INJECTION BLOCK NERVE MEDIAL BRANCH: bilat L 3/4 Bilateral 07/07/2021 Performed by Darren Lackey MD at [facility] INJECTION BLOCK SACROILIAC JOINT Bilateral 04/17/2021 Performed by Darren Lackey MD at [facility] INJECTION SPINE TRANSFORAMINAL: right L 3,4 Nroot Right 09/01/2021 Performed by Darren Lackey MD at [facility] JOINT REPLACEMENT knees- right x2, left x1 KNEE SURGERY rt knee inf removed tka added rods LITHOTRIPSY LUMBAR DISCECTOMY L4-5 Left 10/16/2018 Performed by Suzanne Silverio DO at [facility] STOMACH SURGERY 04/2021 sleeve Allergies Allergen Reactions [...] CNA 02/14/23 1237 Sonal Rodriguez CNA 02/14/23 1259 SCARLET Agustin 02/21/23 1159 documented in this encounter [facility] 02-07-2023 Miscellaneous Notes C9 for physical therapy faxed to [employer]. Faxed verification received. documented in this encounter [facility] 02-07-2023 History of Present illness Narrative [...] which included preparing to see the patient, [id number] patient care, completing clinical documentation, obtaining and/or reviewing separately obtained history, performing a medically appropriate examination, counseling and educating the patient/family/caregiver, and ordering medications, tests, or procedures. SIGNATURE: Riddhi Goss APRN.CNP PATIENT NAME: Sukhdeep Simental DATE: February 07, 2023 TIME: 2:39 PM PAGER: documented in this encounter [facility] 02-04-2023 Hospital Discharge instructions Patient Education [...] include: ?8 oz (237 mL) of milk, pklkgzt-xcmqgibkfnna-abwbe milk, and calcium-fortifiedfruit juice. Calcium-fortified means that [...] ?Spinach (cooked), rhubarb, beets, sweet potatoes, and [place]i chard. ?Peanuts. ?Potato chips, somali fries, and baked potatoes with skin on. ?Nuts and nut products. ?Chocolate. If you regularly take a diuretic medicine, make sure to eat at least 1 or 2 servings of fruits or vegetables that are high in potassium each day. These include: ?Avocado. ?Banana. ?[place], prune, carrot, or tomato juice. ?Baked potato. [...] magnesium, fish oil, or vitamin B6. Take xwog-kmn-ptnwblp and prescription medicines only as told by [...] Casseroles. Pizza. Lasagna. Frozen meals. Potato chips. [place] fries. The items listed above may not [...] provider. Document Revised: 05/24/2022 Document Reviewed: 05/24/2022 [employer] Patient Education 2022 [place]. Follow Up Care 07/27/2022 14:20:34 With:LIDIA JACOBS, Cecelia Jj, URL Address: [facility] [address] , [place] [address]- When:Within 1 Year(s) Comments:w/CT AP w/o Con [facility] 01-23-2023 Miscellaneous Notes Received fax from [employer]. Scanned into [employer]. Also received a RTW from [employer]. Scanned into [employer] as well. documented in this encounter [facility] 12-21-2022 Miscellaneous Notes Patient called with complaints of [facility] not allowing him to case picker the pain medication that was sent [...] with an update. documented in this encounter [facility] 12-20-2022 History of Present illness Narrative [...] which included preparing to see the patient, [id number] patient care, completing clinical documentation, obtaining and/or reviewing separately obtained history, performing a medically appropriate examination, counseling and educating the patient/family/caregiver, and ordering medications, tests, or procedures. SIGNATURE: Singh Morgan PA-C PATIENT NAME: Sukhdeep Simental DATE: December 20, 2022 TIME: 2:58 PM PAGER: documented in this encounter [facility] 12-17-2022 Miscellaneous Notes Forms completed and signed by provider. Faxed to number provided and and Sukhdeep notified via voice mail, as requested. Scanned into [employer]. Form completed. Awaiting signature. Printed for review. Received FMLA form by fax from patient's . Scanned to patient's chart for review and completion. documented in this encounter [facility] 12-13-2022 Miscellaneous Notes Spoke with patient [...] a kenya. Xi Schrader PA-C Patient at [phone] is requesting a call back. He had back surgery on 12-07. He states for the past 2 days his right ring and little finger has been numb. documented in this encounter [facility] 12-12-2022 Miscellaneous Notes Spoke with pharmacy and was informed that medication is approved. No prior authorization needed. Patient called stating pharmacy needs a prior authorization for oxycodone 15 mg. I called the pharmacy on 12/12/2022 at 9:40 AM. Insurance will not pay for the frequency of medication written. They will cover q12h. Prescription changed to oxycodone 15 mg 12h. [id number] [place] [id number] - [address] - [phone] Pharmacist at [facility] wanted to inform the office that this patient already takes Percocet 10-325 every 6 hours, picked it up 13 days ago. They tried running the Percocet but his insurance will not cover both. Please call them back with new instructions. documented in this encounter [facility] 12-11-2022 Note HNO ID: [id number] Author: Lulu Oviedo MD Service: General Internal [...] 10 mg tab( (more content not included)... [facility] 12-10-2022 Note HNO ID: [id number] Author: Lulu Oviedo MD Service: General Internal [...] 10% iv bolu (more content not included)... [facility] 12-09-2022 Note HNO ID: [id number] Author: Alyssa Tim APRN.ROLL UP OPERATOR Service: Neurosurgery Author Type: Nurse Practitioner Type: [...] is currently not well controlled despite Dilaudid LEAD INFORMATICA DEVELOPER and Toradol. He denies new weakness, numbness, [...] mg ORAL q 8 H Alyssa Tim APRN.ROLL UP OPERATOR 1,000 mg at 12/09/22 0559 aluminum-magnesium hydroxide-simethicone 200-200-20 mg/5 mL 30 mL 30 mL ORAL q 6 H PRN Archual, Alyssa, VACUUM PLASTIC FORMING MACHINE OPERATOR.ROLL UP OPERATOR bisacodyl EC 10 mg tab(s) (DULCOLAX) 10 mg ORAL DAILY PRN Archual, Alyssa, VACUUM PLASTIC FORMING MACHINE OPERATOR.ROLL UP OPERATOR dextrose 40 % 15 g 15 g ORAL PRN Archual, Alyssa, VACUUM PLASTIC FORMING MACHINE OPERATOR.ROLL UP OPERATOR Or glucagon 1 mg injection 1 mg INTRAMUSCULAR PRN Archual, Alyssa, VACUUM PLASTIC FORMING MACHINE OPERATOR.ROLL UP OPERATOR Or dextrose 10% iv bolus 12.5 g INTRAVENOUS PRN Archual, Alyssa, VACUUM PLASTIC FORMING MACHINE OPERATOR.ROLL UP OPERATOR docusate sodium 100 mg cap(s) (COLACE) 100 mg ORAL BID Thomas Mathew MD 100 mg at 12/09/22 0821 doxazosin 4 mg tab(s) (CARDURA) 4 mg ORAL DAILY Thomas Mathew MD 4 mg at 12/09/22 0821 fentaNYL LEAD INFORMATICA DEVELOPER 20 mcg/mL in NaCl 0.9% 100 mL (SUBLIMAZE) INTRAVENOUS CONTINUOUS Archual, Alyssa, VACUUM PLASTIC FORMING MACHINE OPERATOR.ROLL UP OPERATOR ferrous sulfate 325 mg tab(s) 325 mg ORAL DAILY Archual, Alyssa, VACUUM PLASTIC FORMING MACHINE OPERATOR.ROLL UP OPERATOR 325 mg at 12/09/22 0821 heparin 5,000 Units injection 5,000 Units SUBCUTANEOUS q 12 H Archual, Alyssa, VACUUM PLASTIC FORMING MACHINE OPERATOR.ROLL UP OPERATOR 5,000 Units at 12/09/22 0821 hydrOXYzine HCl 25 mg tab(s) (ATARAX) 25 mg ORAL q 6 H PRN Archual, Alyssa, VACUUM PLASTIC FORMING MACHINE OPERATOR.ROLL UP OPERATOR insulin lispro injection (rapid acting) (HumaLOG) SUBCUTANEOUS w MEALS AND HS Archual, Alyssa, VACUUM PLASTIC FORMING MACHINE OPERATOR.ROLL UP OPERATOR 1 Units at 12/07/22 1803 lactated ringers iv infusion 75 mL/hr INTRAVENOUS CONTINUOUS Thomas Mathew MD 75 mL/hr at 12/09/22 1018 75 mL/hr at 12/09/22 1018 methocarbamol 750 mg tab(s) (ROBAXIN) 750 mg ORAL QID Archual, Alyssa, VACUUM PLASTIC FORMING MACHINE OPERATOR.ROLL UP OPERATOR NaCl 0.9% iv flush bag 20 mL INTRAVENOUS PRN Thomas Mathew MD naloxone 0.1 mg injection (NARCAN) 0.1 mg INTRAVENOUS q 2 MIN PRN Archual, Alyssa, VACUUM PLASTIC FORMING MACHINE OPERATOR.ROLL UP OPERATOR omeprazole 20 mg cap(s) (PriLOSEC) 20 mg [...] packet 17 g ORAL DAILY Archual, Alyssa, VACUUM PLASTIC FORMING MACHINE OPERATOR.ROLL UP OPERATOR 17 g at 12/09/22 0821 simvastatin 10 mg tab(s) (ZOCOR) 10 mg ORAL AT BEDTIME Thomas Mathew MD 10 mg at 12/08/222019 tamsulosin 0.4 mg cap(s) (FLOMAX) 0.4 mg ORAL DAILY Thomas Mathew MD 0.4 mg at 12/09/22 08 traZODone 150 mg tab(s) (DESYREL) 150 mg ORAL AT BEDTIME Archual, Alyssa, VACUUM PLASTIC FORMING MACHINE OPERATOR.ROLL UP OPERATOR 150 mg at 12/08/222019 valsartan 80 mg tab(s) (DIOVAN) 80 mg ORAL DAILY Archual, Alyssa, VACUUM PLASTIC FORMING MACHINE OPERATOR.ROLL UP OPERATOR 80 mg at 12/09/22 08 ASSESSMENT AND [...] pain control, Pain management consulted, started Fentanyl LEAD INFORMATICA DEVELOPER today due to continued uncontrolled pain, Robaxin and Tylenol scheduled, no further Toradol due to CKD 3. -Check postop lumbar XR today -Medicine consult for post-operative medical management -Discharge planning, anticipate discharge home in 1-2 more days. Plan of care discussed with Dr. Mathew via phone. Medication and Non-Pharmacologic VTE Prophylaxis/Anticoagulants 10/25/21 1215 vte pharmacologic prophylaxis contraindicated (fl,oh) (more content not included)... [facility] 12-08-2022 Note HNO ID: [id number] Author: Alyssa Tim APRN.OLGA Service: Neurosurgery Author [...] on POD #2 -Post-operative pain control, Dilaudid LEAD INFORMATICA DEVELOPER discontinued. Continue Tylenol, Toradol IV, and Robaxin PRN. Start oxycodone every 3 hours PRN and Dilaudid IV PRN. -Check postop XR tomorrow. -Medicine consult for post-operative medical management -Discharge planning, anticipate discharge home in 1-2 more days. Plan of care discussed with Dr Hopper via phone. Medication and Non-Pharmacologic VTE Prophylaxis/Anticoagulants 10/25/21 1215 vte pharmacologic prophylaxis contraindicated (ne,fl) 10/25/21 1215 pneumatic compression stockings (ne,fl) 10/25/21 1215 activity - mobilize patient (ne,fl) VTE Prophylaxis: VTE prophylaxis appropriate SIGNATURE: Alyssa Tim APRN.CNP DATE: December 08, 2022 TIME: 1:50 PM [facility] 12-08-2022 Note HNO ID: [id number] Author: Note, Interface Service: ? Author Type: ? Type: Progress Notes Filed: 12/08/2022 3:59 AM Note Text: Epic Scheduled Downtime: 12/08/2022 1:00:00 AM to 12/08/2022 1:28:00 AM [facility] 12-07-2022 Note HNO ID: [id number] Author: Aaron Noriega AA Service: Anesthesiology Author Type: Human Resources Associate Type: Anesthesia Procedure Notes Filed: 12/07/2022 [...] December 07, 2022 TIME: 8:03 AM CSN: [id number] [facility] 12-06-2022 Evaluation note Encounter Date Diagnosis [...] has adequate iron stores. 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 12/07/2022 documented as of this encounter (statuses as of 12/18/2022) [address]27-2023 History of Past illness Narrative* Problem Noted Date Diagnosed Date Resolved Date Secondary hyperparathyroidism 11/21/2022 11/21/2022 11/21/2022 Corneal edema, unspecified 12/10/2013 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 12/07/2022 documented as of this encounter (statuses as of 12/21/2022) [address]27-2023 History of Past illness Narrative* Problem Noted Date Diagnosed Date Resolved Date Secondary hyperparathyroidism 11/21/2022 11/21/2022 11/21/2022 Corneal edema, unspecified 12/10/2013 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 12/07/2022 documented as of this encounter (statuses as of 12/21/2022) [address]27-2023 History of Past illness Narrative* Problem Noted Date Diagnosed Date Resolved Date Secondary hyperparathyroidism 11/21/2022 11/21/2022 11/21/2022 Corneal edema, unspecified 12/10/2013 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 12/07/2022 documented as of this encounter (statuses as of 01/24/2023) [address]27-2023 History of Past illness Narrative* Problem Noted Date Diagnosed Date Resolved Date Secondary hyperparathyroidism 11/21/2022 11/21/2022 11/21/2022 Corneal edema, unspecified 12/10/2013 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 12/07/2022 documented as of this encounter (statuses as of 02/08/2023) [address]-2023 History of Past illness Narrative* Problem Noted Date Diagnosed Date Resolved Date Secondary hyperparathyroidism 11/21/2022 11/21/2022 11/21/2022 Corneal edema, unspecified 12/10/2013 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 12/07/2022 documented as of this encounter (statuses as of 02/09/2023) [facility]09-27-2023 History of Past illness Narrative* Problem Noted Date Diagnosed Date Resolved Date Secondary hyperparathyroidism 11/21/2022 11/21/2022 11/21/2022 Corneal edema, unspecified 12/10/2013 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 12/07/2022 documented as of this encounter (statuses as of 04/09/2023) [facility]2023 History of Past illness Narrative* Problem Noted Date Diagnosed Date Resolved Date Secondary hyperparathyroidism 11/21/2022 11/21/2022 11/21/2022 Corneal edema, unspecified 12/10/2013 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 12/07/2022 documented as of this encounter (statuses as of 04/18/2023) [facility]20[facility] History of Past illness Narrative* Problem Noted Date Diagnosed Date Resolved Date Secondary hyperparathyroidism 11/21/2022 11/21/2022 11/21/2022 Corneal edema, unspecified 12/10/2013 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 Given both written and verbal instructions re : Skin prep, wound care, pain management and post op restrictions. Provided to patient: [facility] Surgery Guide, skin prep supplies, Spine Surgery Pre/post op education packet. Yes Reviewed with patient to report to the registration desk for surgery? Yes. Reviewed with the patient that a surgery employee's representative will call the working day prior [...] lab work : To be completed at [facility]. Questions answered. Patient verbalizes understanding via teach back. Additional comments : Informed to call with any questions or concerns. Juan Pablo Nova RN [facility] History of Present illness Narrative* Thomas [...] TIME: 2:20 PM PAGER: documented in this encounterWayne [facility]08-[facility]-2023 NoteHNO ID: [id number] Author: Sonya Wilhelm APRN.ROLL UP OPERATOR Service: ? Author Type: Nurse Practitioner Type: Progress Notes Filed: 10/16/2022 4:03 PM Note Text: Per Triage: Sukhdeep Simental is a 57 year old male that requests evaluation of lumbar spine. Per review, they have symptoms of LBP Hip pain Leg pain (R) Numbness, Tingling Toes Trouble lifting leg (R) Prev surgery yes L4-S1 fusion in [facility] CMT: Injection Muscle relaxants, Zanaflex Studies [...] schedule with first available lumbar revision surgeon. [facility]08-22-2023 History of Present illness Narrative* Sonya Wilhelm APRN.ROLL UP OPERATOR - 10/16/2022 3:51 PM EDT Per Triage: Sukhdeep Simental is a 57 year old male that requests evaluation of lumbar spine. Per review, they have symptoms of LBP Hip pain Leg pain (R) Numbness, Tingling Toes Trouble lifting leg (R) Prev surgery yes L4-S1 fusion in [facility] CMT: Injection Muscle relaxants, Zanaflex Studies [...] Simental Are you being referred by a [place] for Spine Health Provider or Pain Management Provider at [facility]? No If answer is YES [...] facility where the MRI/CT/myelogram was completed: [facility] Address: [facility] [place] [address] MRI/CT/myelogram viewable in Epic: No If not, please provide [phone] to fax in imaging reports for review. [...] injections and/or physical therapy was completed Injection [facility] Address: [address] [place] [address] Have you tried any other kinds of [...] of where the surgery was completed: 2019 [facility], Neurosurgery Address: [address] [facility] [address] [place] [address] Additional Comments [phone] (Home Phone) documented in this encounterWayne Hospital07-27-2023 NoteHNO ID: [id number] Author: Adonis Lopez Service: ? Author Type: ? Type: Progress Notes Filed: 10/16/2022 4:03 PM Note Text: Patient name: Sukhdeep Simental Are you being referred by a [place] for Spine Health Provider or Pain Management Provider at [facility]? No If answer is YES [...] facility where the MRI/CT/myelogram was completed: [facility] Address: [address] [place] [address] MRI/CT/myelogram viewable in Epic: No If not, please provide [phone] to fax in imaging reports for review. [...] injections and/or physical therapy was completed Injection [facility] Address: [address] [place] [address] Have you tried any other kinds of [...] of where the surgery was completed: 2019 [facility] Neurosurgery Address: [address] [place] [address] Additional Comments [phone] (Home Phone)[facility]04-27-2023 Evaluation note* Encounter Date Diagnosis Assessment [...] will continue to monitor without any medications. [employer] Other 01-23-2023 Hospital Discharge instructions Patient Education [...] potassium each day. These include: ?Avocado. ?Banana. ?[place], prune, carrot, or tomato juice. ?Baked potato. [...] Casseroles. Pizza. Lasagna. Frozen meals. Potato chips. St Helen[place] fries. Summary You can reduce your risk [...] 06/08/2011 Document Revised: 06/03/2019 Document Reviewed: 01/22/2017 [email or web address] Patient Education 2020 [employer]. Follow Up Care 03/15/2022 09:49:40 With:LIDIA JACOBS, Cecelia Jj, URL Address: [facility] [address] [place] [address]- When: Unknown [facility] 01-16-2023 NoteIndication: Renal mass. Comparison: [...] Electronically authenticated by: CITLALI GIRON Date: 2022-03-12 18:03[facility]10-21-2022 Evaluation note* Encounter Date Diagnosis Assessment Notes [...] be cultured for infection, gonorrhea, chlamydia, yeast. [employer] Other 08-31-2022 Evaluation note* Encounter Date Diagnosis [...] paraproteinemia due to the CKD and anemia. [employer] Other 04-01-2022 History of Present illness Narrative* [...] from the original note were not included. [employer] Progress Note Date: 05/26/2021 Patient name: Sukhdeep [...] Ok for d/c from cardiology standpoint. [employer] [phone] * Octavio Mcclellan, - 05/25/2021 5:42 PM [...] Foreman RN - 05/25/2021 8:32 AM EDT [employer] Documentation Note Admission Dx: S/P laparoscopic sleeve [...] on an annual basis Tona Foreman RN [employer] * Sonya Ramírez, DO - 05/25/2021 6:45 [...] Day of Surgery/Procedure As a patient at [facility] you can expect quality medical and nursing care that is centered on your individual needs. Our goal is to make your surgical experience as comfortableas possible . Directions to the Surgery Center [facility] is located at [address] [place] [address]. Please pull into the Emergency parking lot and stop at the electrotyper ojeda. We offer free electrotyper service for all our surgery patients, if you choose not to have electrotyper parking we have additional parking across the street.You will enter the facility under the blue canopy/walkway following the [facility] sign. Please stop at the front desk receptionist desk where you will be checked in by the staff. If you have any questions please call [phone]. Transportation after your procedure. You will need a friend or family member to drive you home after your procedure. Your sales driver must be18 years of age or [...] You may shave your face or neck. [place] your teeth but do not swallow water. [...] or the day of surgery, please call [phone], or [phone] documented in this [facility] [employer] Phone: 1(425) 790-626503-31-2022 Hospital Discharge instructions* Discharge Instr - KAMARI* Jenny Lentz RN - 05/25/2021 5:44 PM EDT PHYSICIAN SIGNATURE: * Additional Instructions* Jenny Lentz, RN - 05/26/2021 Discharge Instructions for Bariatric Surgery You had a Laparoscopic Sleeve Gastrectomy (53967) surgery to treat obesity. Recovery from this [...] in one week. Follow up with Dr. Mcclelaln in 1 week. If you don't already have a scheduled appointment, please call the office at [phone]. Call Your Doctor If Any of the [...] sent through Care Everywhere. * Enoxaparin (Lovenox) ([place]orese) * metoprolol (oral/injection) ([place]se) * acetaminophen and oxycodone ([place]) [facility] this [facility] Phone: 1(684) 110-472603-09-2022 Hospital Discharge instructions* Instructions* Etelvina Ledbetter APRN - ROLL UP OPERATOR - 05/03/2021 Pre-operative Instructions Please arrive at [...] list you provided today, ACCORDING TO YOUR ENGINEERING SPECIALIST TECHNICIAN, PLEASE HOLD ELIQUIS 3 DAYS PRIOR TO [...] public transportation ALONE is not acceptable. -Your sales driver must be 18 years of age [...] Day of Surgery/Procedure As a patient at [facility] you can expect quality medical and nursing care that is centered on your individual needs. Our goal is to make your surgical experience as comfortableas possible . Directions to the Surgery Center [facility] is located at [address] [place] [address]. Please pull into the Emergency/Surgery Center parking lot and stop at the [employer] ojeda. We offer free electrotyper service for all our surgery patients, if you choose not to have electrotyper parking we have additional parking across the [...] pharmacy bottles in a zip lock bag. [place] your teeth but do not swallow water. [...] DAY OF your surgery, you may call [phone] documented in this encounterOhiohealth [facility] HospitalKlip.in Work Phone: evaluation + Plan note Future Appointments Appointment Date:07/16/2022 02:45:00 PM Scheduled Provider:Cecelia MURILLO MD Location:[facility] Appointment Type:URO Office Visit [facility] evaluation + Plan note Future Appointments Appointment Date:02/04/2023 09:15:00 AM Scheduled Provider:Cecelia MURILLO MD Location:[facility] Appointment Type:URO Office Visit General Surgery [place] Evaluation + Plan note Future Appointments Appointment Date:02/03/2024 10:30:00 AM Scheduled Provider:Cecelia MURILLO MD Location:[facility] Appointment Type:URO Office Visit Diagnostic Tests Pending * PSA Total 02/04/23 [facility] evaluation + Plan note Future Appointments Appointment Date:08/13/2025 10:45:00 AM Scheduled Provider:Cecelai MURILLO MD Location:[facility] Appointment Type:URO Office Visit Diagnostic Tests Pending * PSA Total 06/25/25 [facility] evalvvptyh note* Diagnosis Pre-op chest exam Pre-operative respiratory examination documented [facility] this encounter [facility] Phone: evalvkhimr note* Diagnosis S/P laparoscopic sleeve gastrectomy- Primary documented in this encounter [facility]: evaluation noteNo InformationNort [employer] Other evaluation noteNo assessment information available [facility] Work Phone: Evaluation note* Diagnosis Lumbar adjacent segment disease with spondylolisthesis- Primary Lumbar adjacent segment disease with spondylolisthesis [facility]* Diagnosis Lumbar adjacent segment disease with spondylolisthesis- Primary [facility]* Diagnosis Lumbar adjacent segment disease with spondylolisthesis- Primary documented in this encounter [facility] note* Diagnosis Radiculopathy, lumbar region- Primary Thoracic or lumbosacral neuritis or radiculitis, unspecified documented in this encounter [facility]* Diagnosis Onset Date Resolution Status CKD (chronic kidney disease) stage 3, GFR 30-59 ml/min acute [id number] acute Hyperuricemia acute Microscopic hematuria acute Nephrolithiasis acute Secondary hyperparathyroidism acute Type 2 diabetes 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 acute [facility] Work Phone: evalunthkb note* Diagnosis Spinal stenosis, lumbar region, with neurogenic claudication- Primary documented in this encounter [facility]* Diagnosis Spinal stenosis, lumbar region, with neurogenic claudication- Primary documented in this encounter [facility]* Diagnosis Spinal stenosis, lumbar region, with neurogenic claudication- Primary documented in this encounter [facility] Narrative - Reported* Type Description [...] GASTRIC SLEEVE 04/2021 Hospitalization History SEE ABOVE SocialThreader Other [facility] general Narrative - Reported* Type Description Date [...] REPLACEMENT 04/16 22 Hospitalization History SEE ABOVE SocialThreader Other Hospital course Narrative No data available for this section [facility] Hospital Discharge instructions No data available for this section General Surgery [place] InstructionsNot on filedocumented in this encounter [facility] filedocumented in this encounter [facility]Not on filedocumented in this encounter [facility]Not on filedocumented in this encounter [facility] No data available for this section [facility] reason for referral (narrative)* Diagnostic Procedure Only (Routine) - Pending Review Specialty Diagnoses / Procedures Referred By Enoch luna Referred To Contact XR IMAGING Diagnoses Lumbar adjacent segment disease with spondylolisthesis Procedures XR LUMBAR LIMITED 2V AP/LAT RADEX SPINE LUMBOSACRAL 2/3 VIEWS Singh Morgan PA-C [address] [id number] Xr Imaging [place] [address] Referral ID Status Reason Start Date Expiration Date Visits Requested Visits Authorized [id number] Pending Review Auto-Generat ed Referral 3 01/19/2024 1 1 [facility] for referral (narrative)* Diagnostic Procedure Only (Routine) - Pending Review Specialty Diagnoses / Procedures Referred By Enoch luna Referred To Contact XR IMAGING Diagnoses Radiculopathy, lumbar region Procedures XR LUMBAR LIMITED 2V AP/LAT RADEX SPINE LUMBOSACRAL 2/[place] [address] [place] [address] [place] [address] Referral ID Status Reason Start Date Expiration Date Visits Requested Visits Authorized [id number] Pending Review Auto-Generat ed Referral 05/08/2023 06/06/2024 1 1 [facility] for visit Narrative* Auth/Cert Specialty Diagnoses / Procedures Referred By Contac t Referred To Contact Diagnoses Morbid obesity (HCC) Type II diabetes circulatory disorder causing erectile dysfunction (HCC) Hypertension MORBID OBESITY, TYPE II DIABETES, HYPERTENSION Procedures WI LAP, JUAN RESTRICT PROC, LONGITUDINAL GASTRECTOMY XI ROBOTIC LAPOROSCOPIC GASTRECTOMY SLEEVE, LIVER BIOPSY, EGD- GI SCHEDULED Octavio Mcclellan DO [address] [place] [address] [address] [address] [place] [address] Referral ID Status Reason Start Date Expiration Date Visits Re quested Visits Authorized [id number] 1 1 [facility] Phone: Advance Directives No Advanced Directives Records FoundDocuments on File Type Date Recorded Patient Temporary Staff Accountant Expl anation Advance Directives and Living Will Power of Shipping Supervisor Advance Directive Response Recorded Date/ Time Advance Directives No September 16 2:32pm Documents on File Type Date Recorded Patient Temporary Staff Accountant Expl anation ACP-Advance Directive ACP-Power of Shipping Supervisor Documents on File Type Date Recorded Patient Temporary Staff Accountant Expl anation ACP-Advance Directive ACP-Power of Shipping Supervisor Latest Code Status on File Code Status [...] retention in legs Alexandro Muhammad MD [address] [place] [address] Maite John MD [address] [place] [address] Scheduling Instructions . Specialty Diagnoses / Procedures Referred By Contac t Referred To Contact [facility] [place] Diagnoses Lumbar adjacent segment disease with spondylolisthesis Procedures CONSULT TO [facility] ([facility] PAIN) OFFICE/OUTPATIENT [facility] 60-[place] [address] [id number] Referral ID Status Reason Start Date Expiration Date Visits Requested Visits Authorized [id number] Pending Review PCP Requested Referral 11/05/2022 11/05/2023 1 1 Specialty Diagnoses / Procedures Referred By Contac t Referred To Contact [facility] Diagnoses Lumbar adjacent segment disease with spondylolisthesis Procedures CONSULT TO PHYSICAL THERAPY PHYSICAL THERAPY EVALUATION HIGH COMPLEX 45 MINS Riddhi Goss, VACUUM PLASTIC FORMING MACHINE OPERATOR.ROLL UP OPERATOR [address] [place] [address] [facility] [place] [address] [place] [address] Referral ID Status Reason Start Date Expiration Date Visits Requested Visits Authorized [id number] Pending Review Auto-Generat ed Referral 3 02/07/2024 [...] has been treated in the past by digital asset manager as well as his PCP. They contribute [...] file Gets together: Not on file Attends baptist service: Not on file Active member of [...] 01/08/2020 2:19 PM Patient: Sukhdeep Simental MR#: [id number] : 1965 Age: 54 y.o. 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 [...] []Chair,[]cane, []bracing Are you followed by a director of corporate marketing? [] [x] Name: Are you followed by [...] kidney disease) stage 3, GFR 30-59 ml/min [id number] Hyperuricemia Microscopic hematuria Nephrolithiasis Secondary hyperparathyroidism Type 2 diabetes mellitus with diabetic chronic kidney disease Discharge Instructions * Attachments The following attachments cannot be sent through Care Everywhere. * Back Pain ([place]orese) documented in this encounter Additional Source Comments (unrecognized sect ion and content) No Status Records FoundNo Status Records FoundNo Status Records FoundNo Status Records FoundNo Status Records FoundNo Status Records FoundNo Status Records FoundNo Status Records FoundNo Status Records FoundNo Status Records FoundNo Status Records FoundNo Status Records Found INFORMATION SOURCE (unrecogn ized section and content) DATE CREATED AUTHOR 04/18/2019 [facility] DATE CREATED AUTHOR AUTHOR'S ORGANIZ ATION 06/10/2019 [facility] DATE CREATED AUTHOR AUTHOR'S ORGANIZ ATION 07/21/2021 [facility] DATE CREATED AUTHOR AUTHOR'S ORGANIZ ATION 10/22/2021 [facility] DATE CREATED AUTHOR AUTHOR'S ORGANIZ ATION 01/23/2022 [facility] DATE CREATED AUTHOR AUTHOR'S ORGANIZ ATION 08/04/2022 [facility] DATE CREATED AUTHOR AUTHOR'S ORGANIZ ATION [facility] DATE CREATED AUTHOR AUTHOR'S ORGANIZ ATION 07/27/2023 [facility] DATE CREATED AUTHOR AUTHOR'S ORGANIZ ATION 02/16/2024 [facility] [facility] DATE CREATED AUTHOR AUTHOR'S ORGANIZ ATION 06/19/2024 [facility] DATE CREATED AUTHOR AUTHOR'S ORGANIZ ATION 06/30/2024 [facility] DATE CREATED AUTHOR AUTHOR'S ORGANIZ ATION 08/10/2024 [facility] Reason for Visit (unrecogniz ed section and content) Status Reason Specialty Diagnoses / Procedures Referred By Contact Referred To Contact Pending Review Diagnoses Hx of total knee arthroplasty, right Procedures XR BONE LENGTH STUDY Alexandro Muhammad MD [address] [place] [address] Reason Comments Pain Status Reason Specialty Diagnoses / Procedures Referred By Contact Referred To Contact Closed Cardiovascular Medicine Diagnoses Localized edema Procedures ECHOCARDIOGRAM WI ECHO HEART XTHORACIC,COMPLETE W DOPPLER Suzanne Pruett MD [address] [place] [address] Horace Buc Echocardiograph y [address] [place] [address] Reason Comments Back Pain Lower back pain s/p slip on ice Buttocks Pain Rt buttocks pain Reason Comments New Patient Lumbar spine Specialty Diagnoses / Procedures Referred By Contac t Referred To Contact Neurosurgery / NEUROSURGERY Diagnoses lumbar spine eHealth records requested Procedures REFERRAL TO [facility] FINANCIAL COUNSELOR NEW SPINE SURGICAL TRIAGE Jason Miller [address] [place] [address] [place] [address] [place] [address] Referral ID Status Reason Start Date Expiration Date V isits Requested Visits Authorized [id number] Outside PCP 11/05/2022 01/04/2023 99 99 Reason [...] POST OP NEUS/NRES Self Xi Schrader PA-C [id number] [place] [id number] Referral ID Status Reason Start Date Expiration Date Visits Re quested Visits Authorized [id number] Closed 12/20/2022 02/24/2023 1 1 Reason Comments Received Outside Medical Records promedi ca Reason Comments Follow Up Specialty Diagnoses / Procedures Referred By Contac t Referred To Contact Neurosurgery / NEUROSURGERY Diagnoses Follow-up exam Follow Up Procedures OFFICE/OUTPATIENT ESTABLISHED MOD MDM 30-39 MIN EST NI PATIENT Self Xi Schrader PATed [id number] [place] [address] Referral ID Status Reason Start Date Expiration Date Visits Re quested Visits Authorized [id number] Closed 02/07/2023 02/07/2023 1 1 Reason Comments PT Certification Specialty Diagnoses / Procedures Referred By Contac t Referred To Contact Neurosurgery / NEUROSURGERY Diagnoses Lumbar adjacent segment disease with spondylolisthesis discuss imaging and BWC requirements Procedures PHYS/QHP TELEPHONE EVALUATION 5-10 MIN [place] [address] [place] [address] Referral ID Status Reason Start Date Expiration Date V isits Requested Visits Authorized [id number] Denied Patient Cleared - Admin/Chairm an/Director advise [...] Care Provider Active Start: October 29, 2023 uOmou Weinstein MD Attending Provider Active Start : October 29, 2023 Team Status: Inactive Member Role Status Dates PHYSICIAN NO FAMILY Primary Care Provider Active Start: November 07, 2023 End: November 07, 2023 Oumou Weinstein MD Attending Provider Active Start : November 07, 2023 End: November 07, 2023 Bottom Polisher Relationship Specialty Start Date End Date Blayne Isabel MD [address] [place] [id number] PCP - General Family Medicine 04/11/19 Bottom Polisher Relationship Specialty Start Date End Date Blayne Isabel MD [address] [place] [id number] PCP - General Family Medicine 04/11/19 Bottom Polisher Relationship Specialty Start Date End Date Blayne Isabel MD [address] [place] [id number] PCP - General Family Medicine 04/11/19 Bottom Polisher Relationship Specialty Start Date End Date Blayne Isabel MD [address] [place] [id number] PCP - General Family Medicine 04/11/19 Team Status: Inactive Member Role Status Dates STEPH Sarkar Attending Provider Active Team Status: Inactive Member Role Status Dates PHYSICIAN NO FAMILY Primary Care Provider Active Gianni James Nelson , DO Attending Provider Active Team Status: Inactive Member Role Status Dates Estephanie Lowry WINDOW SASH INSTALLER-C Attending Provider Active PHYSICIAN NO FAMILY Primary Care Provider Active Bottom Polisher Relationship Specialty Start Date End Date Blayne Isabel MD PCP - General Family Medicine 11/06/13 Bottom Polisher Relationship Specialty Start Date End Date Blayne Isabel MD PCP - General Family Medicine 11/06/13 Bottom Polisher Relationship Specialty Start Date End Date Blayne Isabel MD PCP - General Family Medicine 11/06/13 Bottom Polisher Relationship Specialty Start Date End Date Blayne Isabel MD PCP - General Family Medicine 11/06/13 Bottom Polisher Relationship Specialty Start Date End Date Blayne Isabel MD PCP - General Family Medicine 11/06/13 Bottom Polisher Relationship Specialty Start Date End Date Blayne Isabel MD PCP - General Family Medicine 11/06/13 Bottom Polisher Relationship Specialty Start Date End Date Blayne Isabel MD PCP - General Family Medicine 11/06/13 Bottom Polisher Relationship Specialty Start Date End Date Blayne Isabel MD PCP - General Family Medicine 11/06/13 Bottom Polisher Relationship Specialty Start Date End Date Blayne Isabel MD PCP - General Family Medicine 11/06/13 Bottom Polisher Relationship Specialty Start Date End Date Blayne Isabel MD PCP - General Family Medicine 11/06/13 Bottom Polisher Relationship Specialty Start Date End Date Blayne Isabel MD PCP - General Family Medicine 11/06/13 Bottom Polisher Relationship Specialty Start Date End Date Blayne Isabel MD PCP - General Family Medicine 11/06/13 Bottom Polisher Relationship Specialty Start Date End Date Blayne Isabel MD PCP - General [facility] Medicine 10/08/18 Bottom Polisher Relationship Specialty Start Date End Date Blayne Isabel MD PCP - General [facility] Medicine 10/08/18 Bottom Polisher Relationship Specialty Start Date End Date Blayne Isabel MD [address] [place] [address] PCP - [facility] 10/08/18 Bottom Polisher Relationship Specialty Start Date End Date Blayne Isabel MD [address] [place] [address] PCP - General [facility] Medicine 10/08/18 Bottom Polisher Relationship Specialty Start Date End Date Blayne Isabel MD PCP - General [facility] Medicine 10/08/18 Bottom Polisher Relationship Specialty Start Date End Date Blayne [...] Comment: pt. sleeping) 0745 (Given - Provider: Dtotie Otoole RCP)1301 (Given - Provider: Dottie Otoole RCP)1949 (Given - Provider: Yamilka Doyle MOBILE HOME LOT UTILITY WORKER) 0729 (Not Given - Provider: Swapna De Anda MOBILE HOME LOT UTILITY WORKER - Reason: Patient/family refused - Comment: pt [...] to back table, 1000 ml. for suction controls design engineer.) sodium chloride flush 0.9 % injection 5-40 [...] or prosecute any alcohol or drug abuse patient.[facility] the event this information is protected by the Federal Confidentiality of Alcohol and Drug Abuse Patient Records regulations: The Federal rules restrict any use of the information to criminally investigate or prosecute any alcohol or drug abuse patient.[facility] Hospital[facility] the event this information is protected by the Federal Confidentiality of Alcohol and Drug Abuse Patient Records regulations: The Federal rules restrict any use of the information to criminally investigate or prosecute any alcohol or drug abuse patient.[facility] the event this information is protected by the Federal Confidentiality of Alcohol and Drug Abuse Patient Records regulations: The Federal rules restrict any use of the information to criminally investigate or prosecute any alcohol or drug abuse patient.[facility] HospitalIn the event this information is protected by the Federal Confidentiality of Alcohol and Drug Abuse Patient Records regulations: The Federal rules restrict any use of the information to criminally investigate or prosecute any alcohol or drug abuse patient.[facility] the event this information is protected by the Federal Confidentiality of Alcohol and Drug Abuse Patient Records regulations: The Federal rules restrict any use of the information to criminally investigate or prosecute any alcohol or drug abuse patient.[facility] HospitalIn the event this information is protected by the Federal Confidentiality of Alcohol and Drug Abuse Patient Records regulations: The Federal rules restrict any use of the information to criminally investigate or prosecute any alcohol or drug abuse patient.[facility] the event this information is protected by the Federal Confidentiality of Alcohol and Drug Abuse Patient Records regulations: The Federal rules restrict any use of the information to criminally investigate or prosecute any alcohol or drug abuse patient.[facility] the event this information is protected by the Federal Confidentiality of Alcohol and Drug Abuse Patient Records regulations: The Federal rules restrict any use of the information to criminally investigate or prosecute any alcohol or drug abuse patient.[facility] the event this information is protected by the Federal Confidentiality of Alcohol and Drug Abuse Patient Records regulations: The Federal rules restrict any use of the information to criminally investigate or prosecute any alcohol or drug abuse patient.[facility] the event this information is protected by the Federal Confidentiality of Alcohol and Drug Abuse Patient Records regulations: The Federal rules restrict any use of the information to criminally investigate or prosecute any alcohol or drug abuse patient.[facility] HospitalIn the event this information is protected by the Federal Confidentiality of Alcohol and Drug Abuse Patient Records regulations: The Federal rules restrict any use of the information to criminally investigate or prosecute any alcohol or drug abuse patient.[facility] HospitalIn the event this information is protected by the Federal Confidentiality of Alcohol and Drug Abuse Patient Records regulations: The Federal rules restrict any use of the information to criminally investigate or prosecute any alcohol or drug abuse patient.[facility] HospitalIn the event this information is protected by the Federal Confidentiality of Alcohol and Drug Abuse Patient Records regulations: The Federal rules restrict any use of the information to criminally investigate or prosecute any alcohol or drug abuse patient.[facility] Hospital[facility] the event this information is protected by the Federal Confidentiality of Alcohol and Drug Abuse Patient Records regulations: The Federal rules restrict any use of the information to criminally investigate or prosecute any alcohol or drug abuse patient.[facility] HospitalIn the event this information is protected by the Federal Confidentiality of Alcohol and Drug Abuse Patient Records regulations: The Federal rules restrict any use of the information to criminally investigate or prosecute any alcohol or drug abuse patient.[facility] HospitalIn the event this information is protected by the Federal Confidentiality of Alcohol and Drug Abuse Patient Records regulations: The Federal rules restrict any use of the information to criminally investigate or prosecute any alcohol or drug abuse patient.[facility] HospitalIn the event this information is protected by the Federal Confidentiality of Alcohol and Drug Abuse Patient Records regulations: The Federal rules restrict any use of the information to criminally investigate or prosecute any alcohol or drug abuse patient.[facility] HospitalIn the event this information is protected by the Federal Confidentiality of Alcohol and Drug Abuse Patient Records regulations: The Federal rules restrict any use of the information to criminally investigate or prosecute any alcohol or drug abuse patient.[facility] FOR RECORDS PERTAINING TO PATIENTS WHO [...] BE BASED ON THE PRIMARY CLINICAL RECORDS. [email or web address] [facility]. provides no warranty or guarantee of the accuracy or completeness of information in this document.
--- OUTSIDE RECORDS SUMMARY | 2024-11-13 14:05 | XMS_ITS | CCD ---
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 Role Phone Blayne Isabel Primary Care Provider SUZANNE ACEVEDO Attending Unavailable BLAYNE ISABEL Primary Care Unavailable ARSENIO BHATTI Referring Unavailable BLAYNE ISABEL Primary Care Unavailable ARSENIO BHATTI Referring Unavailable BLAYNE ISABEL Primary Care Unavailable ROSE SOTELO Attending Unavailable BLAYNE ISABEL Primary Care Unavailable BLAYNE ISABEL Consulting Unavailable Blayne Isabel Primary Care Provider [phone] Blayne Isabel Primary Care Provider Octavio Becker Attending Provider [phone] Blayne Isabel MD Primary Care Provider OCTAVIO [...] Oumou Weinstein Unavailable STEPH Lowry Attending Provider [phone] Estephanie Lowry Unavailable STEPH Lowry Attending Provider [phone] NO FAMILY, PHYSICIAN Primary Care Provider Unava [...] DR CISNEROS Attending Unavailable HOY ., DR CISNERSO Attending Unavailable HOY ., DR CISNEROS Consulting [...] Unavailable Blayne Isabel MD Primary Care Provider [phone] [facility] THOMAS Attending Unavailable QUINCY THOMAS Admitting [...] Unavailable HOY, BLAYNE M Referring Unavailable HOY, LBAYNE M Primary Care Unavailable AHSAN FLYNN Attending Unavailable HOY, BLAYNE M Referring Unavailable HOChad BLAYNE M Primary Care Unavailable Blayne Isabel MD Primary Care Provider [phone] PAYTON HELM Referring Unavailable PAYTON HELM Attending Unavailable PAYTON HELM Attending Unavailable Cecelia MURILLO Attending Unavailable MURILLOCecelia R Attending Unavailable MURILLO, Cecelia R Attending Unavailable MURILLO, Cecelia R Attending Unavailable Unavailable Unavailable Unavailable Allergies Allergy Classification Reported Allergen(s) Allergy Type Date of Onset Reaction(s) Facility (16 sources) Povidone-Iodine; Translations: [povidone iodine topical] Drug Allergy [facility] (11 sources) Povidone-Iodine; Translations: [povidone-iodine] Drug Allergy 9 [facility] (9 sources) soap; Translations: [soap] Allergy to substance 9 [facility] (14 sources) Chlorhexidine; Translations: [CHLORHEXIDINE] Drug Allergy 1 [facility] (14 sources) Iodine; Translations: [IODINE] Drug Allergy 9 [facility] Work Phone: (15 sources) Loratadine; Translations: [loratadine] Drug Allergy [address] [facility] (1 source) Chlorhexidine Drug Allergy [facility] (1 source) Povidone-Iodine; Translations: [Betadine] Drug Allergy [facility] Medications Current Medications Medication Drug Class(es) Dates Sig (Normalized) Sig (Original) acetaminophen 500 mg oral tablet (14 sources) Start: 01-02-2022 End: 01-10-2023 take 2 tablets by mouth every eight hours acetaminophen (TYLENOL EXTRA STRENGTH) 500 mg tablet TAKE TWO TABLETS BY MOUTH EVERY 8 HOURS 01/02/2022 Active Comment on above: Take 2 tablets by mo [facility] every 8 hours. acetaminophen 325 mg / [...] carlos th every 4 hours as needed. [id number] 200 actuat albuterol 0.09 mg/actuat metered dose [...] Start: 01-05-2021 take 1 capsule by mo [facility] every week vitamin D (ERGOCALCIFEROL) 1.25 MG (59646 UT) CAPS capsule Indications: Vitamin D deficiency [...] on above: Take 1 capsule by mo [facility] twice daily. 2 ml ondansetron 2 [...] Comment on above: Take 1 tablet by [facility] every 3 hours as needed for [...] 07, 2023 12:00am take 1 capsule by [facility] once daily in the morning phentermine [...] Repeat number: 1 take 2 tablets by [facility] in the morning pioglitazone (ACTOS) 15 [...] Comment on above: Take 1 capsule by [facility] once daily. temazepam 15 mg oral [...] Start: 08-21-2018 take 2 tablets by mo [facility] once daily tiZANidine (ZANAFLEX) 4 mg [...] on above: Use 1 Drop in the [facility] once daily. 72 hr scopolamine [...] on above: Use 1 [facility] as directed. 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 Normal [facility] Office/Clinic Noteon 08-07-2024 Urology Office/Clinic Note Urology Office/Clinic Note Chief Complaint 18 month f/u with SÁNCHEZ and KUB HPI Staff 58 year old male patient here for follow up with KUB/SÁNCHEZ. KUB/SÁNCHEZ done 07/16/24 @ [facility]. Previous dx: renal mass, kidney stone, [...] acquired) Seen in consult on 06/29/21 at [facility]. 11/14/21 - BUN 19.0. Crea 1.62. [...] Information LIDIA JACOBS, Cecelia Jj, URL [address] [place] [address]- Additional Instructions: 1 year w/ KUB and [...] BMI 40.0- (more content not included)... Normal [facility] Comment on above: Result Comment: Elec tronically Signed By: Cecelia MURILLO MD\.br\Date and Time Signed: 08/07/24 12:00 EDT\.br\Electronically Co-Signed By: Jacqueline Calero\.br\Date and Time Co-Signed: 08/07/24 11:53 EDT\.br\Electronically Co-Signed By: Jacqueline Calero\.br\Date and Time Co-Signed: 08/07/24 11:56 EDT\.br\Electronically Co-Signed By: Jacqueline Calero\.br\Date and Time Co-Signed: 08/07/24 11:57 EDT [facility] Patient Letter [facility] June 22, 2024 [place] [address] : 1965 Dear Mr. Sukhdeep Simental, You [...] any future cancellations. Sincerely, [place] [address] ext.[phone] [facility] Follow-Upon 06-17-2024 Follow-Up [id number] Sukhdeep Simental F 1965 M Date Provider Department Center 06/17/2024 PAYTON GRIFFITH MP ORTHO MPORTHO Family History Problem Relation Age of Onset Dementia Mother Esophageal cancer Father Alcohol abuse Father Family Status - Relation Status Age at Mother Alive Father Level of Service:74185 DC OFFICE/OUTPATIENT ESTABLISHED SF MDM 10 MIN [facility] 36on 05-18-2024 36 Will need to see the patient as soon as possible repeat x-rays and blood test to further evaluate as he has had previous infections and has high risk for recurrent infections and 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 PT WILL COME IN TODAY [facility] BASIC METABOLIC PANELon 03-2 Anion gap [Moles/Vol] 12 mmol/L Normal 7-20 [facility] Comment on above: Performed By: #### L [id number] #### [facility] ([employer]) [address] [place] [address] Calcium [Mass/Vol] 9.9 mg/dL Normal 8.6-10.3 [facility] Comment on above: Performed By: #### L [id number] #### [facility] ([employer]) [address] [place] [address] Chloride [Moles/Vol] 105 mmol/L Normal 98-107 [facility] Comment on above: Performed By: #### L [id number] #### [facility] ([facility]) [address] [place] [address] CO2 [Moles/Vol] 27 mmol/L Normal 21-31 [facility] Comment on above: Performed By: #### L [id number] #### [facility] ([facility]) [address] [place] [address] Creatinine [Mass/Vol] 1.42 mg/dL High 0.70-1.30 [facility] Comment on above: Performed By: #### L [id number] #### [facility] ([facility]) [address] [place] [address] GLOMERULAR FILTRATION RATE ML/MIN/1.73 SQ M.PREDICTED 56.6 mL/min/1.73m*2 Low >60.0 [facility] Comment on above: Result Comment: [facility]???s estimated glomerular filtration rate (eGFR) [...] L [id number] #### [facility] ([facility]) [address] [place] [address] Glucose [Mass/Vol] 102 mg/dL High 70-100 [facility] Comment on above: Performed By: #### L [id number] #### [facility] ([facility]) [address] [place] [address] Potassium [Moles/Vol] 4.4 mmol/L Normal 3.5-5.1 [facility] Comment on above: Performed By: #### L [id number] #### [facility] ([facility] [address] [place] [address] Sodium [Moles/Vol] 140 mmol/L Normal 136-145 [facility] Comment on above: Performed By: #### L [id number] #### [facility] ([facility]) [address] [place] [address] Urea nitrogen [Mass/Vol] 23 mg/dL Normal 7-25 [facility] Comment on above: Performed By: #### L [id number] #### [facility] ([facility]) [address] [place] [address] UREA NITROGEN/CREATININE (MASS RATIO) IN SER/PLAS 16.2 Normal [facility] Comment on above: Performed By: #### L [id number] #### [facility] ([facility]) [address] [place] [address] C-REACTIVE PROTEINon 025 C REACTIVE PROTEIN (MG/L) IN SER/PLAS <5.4 Normal <=5.0 [facility] Comment on above: Result Comment: Test ing performed using a new methodology, turbidimetry. Normal ranges have been updated. Old normal range was <8 mg/L. Performed By: #### L [id number] #### [facility] ([facility]) [address] [place] [address] CBC WITH AUTO DIFFERENTIALon 05-18-2024 Basophils (Bld) [#/Vol] 0.06 10*3/uL Normal 0.00-0.20 [facility] Comment on above: Performed By: #### L [id number] #### [facility] ([facility] [address] [place] [address] Basophils/100 WBC (Bld) 0.7 % Normal 0.0-1.0 [facility] Comment on above: Performed By: #### L [id number] #### [facility] ([facility] [address] [place] [address] Eosinophils (Bld) [#/Vol] 0.15 10*3/uL Normal 0.00-0.50 [facility] Comment on above: Performed By: #### L [id number] #### [facility] ([facility]) [address] [place] [address] Eosinophils/100 WBC (Bld) 1.8 % Normal 0.0-6.0 [facility] Comment on above: Performed By: #### L [id number] #### [facility] ([facility]) [address] [place] [address] Erythrocyte distribution width (RBC) [Ratio] 11.9 % Normal 11.5-15.0 [facility] Comment on above: Performed By: #### L [id number] #### [facility] ([facility]) [address] [place] [address] ERYTHROCYTE MEAN CORPUSCULAR HEMOGLOBIN CONCENTRATION (G/DL) BY AUTOMATED 34.5 g/dL Normal 32.0-35.0 [facility] Comment on above: Performed By: #### L [id number] #### [facility] ([facility]) [address] [place] [address] Hematocrit (Bld) [Volume fraction] 47.8 % Normal 39.0-50.0 [facility] Comment on above: Performed By: #### L [id number] #### [facility] ([facility] [address] [place] [address] Hemoglobin (Bld) [Mass/Vol] 16.5 g/dL Normal 13.0-17.0 [facility] Comment on above: Performed By: #### L [id number] #### [facility] ([facility]) [address] [place] [address] Immature granulocytes (Bld) [#/Vol] 0.03 10*3/uL Normal 0.00-0.20 [facility] Comment on above: Performed By: #### L [id number] #### [facility] ([employer]) [address] [place] [address] Immature granulocytes/100 WBC (Bld) 0.4 % Normal 0.0-1.0 [facility] Comment on above: Performed By: #### L [id number] #### [facility] ([facility]) [address] [place] [address] Lymphocytes (Bld) [#/Vol] 1.80 10*3/uL Normal 1.20-4.00 [facility] Comment on above: Performed By: #### L [id number] #### [facility] ([facility]) [address] [place] [address] Lymphocytes/100 WBC (Bld) 21.8 % Normal 20.0-45.0 [facility] Comment on above: Performed By: #### L [id number] #### [facility] ([facility]) [address] [place] [address] MCH (RBC) [Entitic mass] 31.5 pg Normal 27.0-33.0 [facility] Comment on above: Performed By: #### L [id number] #### [facility] ([facility]) [address] [place] [address] MCV (RBC) [Entitic vol] 91.4 fL Normal 82.0-98.0 [facility] Comment on above: Performed By: #### L [id number] #### [facility] ([facility]) [address] [place] [address] Monocytes (Bld) [#/Vol] 0.66 10*3/uL Normal 0.10-1.00 [facility] Comment on above: Performed By: #### L [id number] #### [facility] ([facility]) [address] [place] [address] Monocytes/100 WBC (Bld) 8.0 % Normal 5.0-12.0 [facility] Comment on above: Performed By: #### L [id number] #### [facility] ([facility]) [address] [place] [address] Neutrophils (Bld) [#/Vol] 5.56 10*3/uL Normal 1.60-7.60 [facility] Comment on above: Performed By: #### L [id number] #### [facility] ([facility] [address] [place] [address] Neutrophils/100 WBC (Bld) 67.3 % Normal 40.0-72.0 [facility] Comment on above: Performed By: #### L [id number] #### [facility] ([facility] [address] [place] [address] NRBC (PER 100 WBCS) BY AUTOMATED COUNT 0.0 % Normal 0 [facility] Comment on above: Performed By: #### L [id number] #### [facility] ([facility]) [address] [place] [address] PLATELETS (10*3/UL) IN BLOOD AUTOMATED COUNT 247 10*3/uL Normal 150-400 [facility] Comment on above: Performed By: #### L [id number] #### [facility] ([facility]) [address] [place] [address] RBC (Bld) [#/Vol] 5.23 10*6/uL Normal 4.20-5.70 [facility] Comment on above: Performed By: #### L [id number] #### [facility] ([facility]) [address] [place] [address] WBC (Bld) [#/Vol] 8.26 10*3/uL Normal 4.00-10.60 [facility] Comment on above: Performed By: #### L [id number] #### [facility] ([facility]) [address] [place] [address] Follow-Upon 05-18-2024 Follow-Up [id number] Sukhdeep Simental 1965 M Date Provider Department Center 05/18/2024 PAYTON GRIFFITH MP ORTHO MPOKATHIA Family History Problem Relation Age of Onset Dementia Mother Esophageal cancer Father Alcohol abuse Father Family Status - Relation Status Age at Mother Alive Father Level of Service:72683 DC OFFICE/OUTPATIENT ESTABLISHED MOD MDM 30 MIN () Reason for Visit and Comments: Pain [136] - Swelling starts 2 months ago, started swimming about a month ago and it only made his knee worse Edema [[id number]] - Swelling starts 2 months ago, started swimming about a month ago and it only made his knee worse Normal [facility] Labon 05-18-2024 Lab [id number] Sukhdeep Simental 1965 M Date Provider Department Center 05/18/2024 [facility] LAB RESOURCE MP DRAW Medical Pavi Family History Problem Relation Age of Onset Dementia Mother Esophageal cancer Father Alcohol abuse Father Family Status - Relation Status Age at Mother Alive Father Normal [facility] SEDIMENTATION RATEon 025 SEDIMENTATION RATE, ERYTHROCYTE 5 mm/hr Normal <20 [facility] Comment on above: Performed By: #### L [id number] #### [facility] ([employer]) [address] [place] [address] 36on 05-15-2024 36 Patient feels like h is infection is back. Right knee swelling and pain but no fever. He was seen by Dr. Isbael and he put him on oral antibiotics and wanted Dr. Helm know in case he wants him to come in and be exam. Normal [facility] Erythrocyte distribution wid th Auto (RBC) [Ratio]on 10-29-2023 Erythrocyte distribution width (RBC) [Ratio] 11.5 % 11.0-15.0 [facility] Estimated glomerular filtrat ion rate (GFR) non- Americanon 10-29-2023 GFR/1.73 sq M.predicted among non-blacks MDRD (S/P/Bld) [Vol rate/Area] 51 mL/min/{1.73_m2} Low >=60 [facility] Hematocrit Auto (Bld) [Volum e fraction]on 10-29-2023 Hematocrit (Bld) [Volume fraction] 47.7 % 42.0-54.0 [facility] Hemoglobin [Mass/volume] in Bloodon 10-29-2023 Hemoglobin (Bld) [Mass/Vol] 16.8 g/dL 14.0-18.0 [facility] Laboratory - Chemistry and C hemistry - challengeon 10-29-2023 Albumin [Mass/Vol] 3.7 g/dL 3.4-5.0 [facility] Calcium [Mass/Vol] 9.0 mg/dL 8.5-10.1 [facility] Chloride [Moles/Vol] 103 mmol/L 98-107 [facility] CO2 [Moles/Vol] 26.8 mmol/L 21.0-32.0 [facility] Creatinine [Mass/Vol] 1.41 mg/dL High 0.70-1.30 [facility] GFR/1.73 sq M.predicted MDRD (S/P/Bld) [Vol rate/Area] mL/min/{1.73_m2} >=60 [facility] Glucose [Mass/Vol] 167 mg/dL High 74-106 [facility] Magnesium [Mass/Vol] 1.9 mg/dL 1.8-2.4 [facility] Potassium [Moles/Vol] 3.9 mmol/L 3.5-5.1 [facility] Sodium [Moles/Vol] 141 mmol/L 136-145 [facility] Urate [Mass/Vol] 7.9 mg/dL High 3.5-7.2 [facility] Urea nitrogen [Mass/Vol] 26.0 mg/dL High 7.0-18.0 [facility] Urea nitrogen/Creatinine [Mass ratio] 18.4 mg/mg [facility] Bilirubin Ql (U) Negative NEGATIVE [facility] Glucose (U) [Mass/Vol] Negative NEGATIVE [facility] Ketones Ql (U) Negative NEGATIVE [facility] pH (U) 6.0 [pH] 5.0-9.0 [facility] Specific gravity (U) [Rel density] 1.015 1.005-1.025 [facility] Urobilinogen Qn (U) 0.2 {Dahiana'U}/dL 0.2-1.0 [facility] Laboratory - Specimen inform ationon 10-29-2023 Appearance (U) CLEAR CLEAR [facility] Color (U) LT. YELLOW YELLOW [facility] Laboratory - Urinalysison Hyaline casts LM Ql (Urine sed) RARE [facility] Leukocyte esterase Test strip Ql (U) Negative NEGATIVE [facility] Mucus Ql (Urine sed) NONE SEEN NONE SEEN [facility] Nitrite Ql (U) Negative NEGATIVE [facility] Protein Ql (U) Negative NEG/TRACE [facility] Leukocytes [#/volume] correc romaine for nucleated erythrocytes in Blood by Automated counon 10-29-2023 WBC corrected for nucl RBC Auto (Bld) [#/Vol] 6.9 10 3/uL 4.0-11.0 [facility] MCH Auto (RBC) [Entitic mass ]on 10-29-2023 MCH (RBC) [Entitic mass] 32.2 pg 25.9-34.0 [facility] MCHC Auto (RBC) [Mass/Vol]on 10-29-2023 MCHC (RBC) [Mass/Vol] 35.2 g/dL 29.9-35.2 [facility] MCV Auto (RBC) [Entitic vol] on 10-29-2023 MCV (RBC) [Entitic vol] 91.6 fL 80.0-94.0 [facility] No Panel Informationon 10-28 25-Hydroxy Vitamin D Total 40.8 ng/mL [facility] Comment on above: <20 ng/mL Vit D defi cient20-<30 ng/mL Vit D privakmendtw08-045 ng/mL Vit D sufficient>100 ng/mL Potential Toxicity Parathyroid Hormone (Intact) 91 pg/mL Abnormal 15-65 [facility] Comment on above: Performed at: - [facility] [address] [id number] Director: Logan Martinez PhD, Phone: [phone] Phosphorus Level 2.3 mg/dL Low 2.6-4.7 [facility] Urine Bacteria NONE SEEN #/HPF NONE SEEN [facility] Urine Occult Blood Negative NEGATIVE [facility] Urine Other Casts SEEN #/LPF Abnormal NONE SEEN [facility] Urine Random Creatinine 15.18 mg/dL Low 20.00-300.00 [facility] Urine Random Total Protein <6.0 mg/dL <=11.9 [facility] Urine RBC NONE SEEN #/HPF 0-2 [facility] Urine Squamous Epithelial Cells FEW #/LPF Abnormal NONE/RARE [facility] Urine WBC NONE SEEN #/HPF NONE SEEN [facility] Platelet mean volume Auto (B ld) [Entitic vol]on 10-29-2023 Platelet mean volume (Bld) [Entitic vol] 8.9 fL Low 9.5-13.5 [facility] Platelets Auto (Bld) [#/Vol] on 10-29-2023 Platelets (Bld) [#/Vol] 236 10 3/uL 150-450 [facility] RBC Auto (Bld) [#/Vol]on RBC (Bld) [#/Vol] 5.21 10 6/uL 4.70-6.10 [facility] Serum or plasma anion gap de terminationon 10-29-2023 Anion gap [Moles/Vol] 15.1 mmol/L [facility] CNPNon 10-07-2023 CNPN Telephone (NEADFV) SUKHDEEP SIMENTAL ([id number]) 1965 M Date Time Provider Department 10/07/23 [facility] During your visit today, we recorded the [...] Encounter Status:Closed by ARIANNA MUHAMMAD on [facility]/24 [facility] CNPN Telephone (MedxnoteFV) SUKHDEEP SIMENTAL ([id number]) 1965 M Date Time Provider Department 10/04/[address] [facility] During your visit today, we recorded [...] Status:Closed by JUAN PABLO NOVA on 10/04/23 [facility] 07[facility]30-2023 [facility] SUKHDEEP SIMENTAL ([id number]) 1965 M Date Time Provider Department 07/30/23 [facility] During your visit today, we recorded the following information about you: Arianna Little 07/30/2023 11:51 AM Signed Pt phoned regarding upcoming visit 10/06 [employer] appt. Pt unable to manage virtual visit asking for telephone visit. Pt asking how far in advance to do X-Ray. Pt will have X-Ray done locally at [facility]. Please call and advise Pt phone # [phone] Ekaterina Rondon 07/30/2023 1:07 PM Signed Have sent XR Lumbar order to [facility] fax # [phone] as requested from patient. Riddhi Goss APRN.[facility] 07/30/2023 3:25 PM Signed Called Sukhdeep, [...] Encounter Status:Closed by RIDDHI GOSS on 07/30/23 [facility] CNPN Telephone (NIQ) SUKHDEEP SIMENTAL ([id number]) 1965 M Date Time Provider Department 07/23/23 [facility] During your visit today, we recorded the following information about you: Brenda Alex 07/23/2023 9:38 AM Signed Received request from [employer] needing more info, in [employer] for review. Juan Pablo Nova RN 07/23/2023 [...] Status:Closed by JUAN PABLO NOVA on 07/26/23 [facility] 04-16-2023 CNPN Telephone (NIQ) SUKHDEEP SIMENTAL ([id number]) 1965 M Date Time Provider Department 04/16/23 [facility] During your visit today, we recorded the following information about you: Moriah Ferguson 04/16/2023 1:27 PM Signed [facility] Hospital. Disc contains CT Lumbar spine done [...] Status:Closed by MORIAH FERGUSON on 06/06/23 [facility] [place] 04-10-2023 HARIKA Telephone (NIQ) SUKHDEEP SIMENTAL ([id number]) 1965 M Date Time Provider Department 04/10/23 [...] Status:Closed by JUAN PABLO NOVA on 04/18/23 [facility] [place] 04-09-2023 CNPN Telephone (NIQ) SUKHDEEP SIMENTAL ([id number]) 1965 M Date Time Provider Department 04/09/23 THOMAS MATHEW During your visit today, we recorded the following information about you: Brenda Alex 04/09/2023 10:[address] Lumbar Spine Report from [facility], in epic to review. Brittany Rubio [...] Encounter Status:Closed by ROBSON LAZO on 04/09/23 [facility] 02-11-2023 [facility] Telephone (NIQ) SUKHDEEP SIMENTAL ([id number]) 1965 M Date Time Provider Department 02/11/23 THOMAS MATHEW During your visit today, we recorded the following information about you: Moriah Ferguson 02/11/2023 1:36 PM Signed Received fax from [employer] requesting office notes, C-9, and [employer]. See fax scanned in patient's chart. Juan Pablo Nova RN 02/13/2023 3:14 PM Signed Information faxed to number requested. Faxed verification received. MariamVincent jiménezbrigido Rojo 03/06/2023 3:20 PM Signed Received updated notes from [facility] dated 03/05/23. Scanned into [employer] 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 that was sent [...] Encounter Status:Closed by XI SCHRADER on 12/21/22 [facility] 12-18-2022 CNPN Telephone (PODCCP) SUKHDEEP SIMENTAL ([id number]) 1965 M Date Time Provider Department 12/18/22 BLAYNE ISABEL PODCCP During your visit today, we recorded the following information about you: Amaury Carreon 12/18/2022 1:52 PM Signed PATIENT INFORMATION Record ID: [id number] Patient Name: [facility]: [facility]: [facility] Attending: Thomas Mathew Center: [facility] INSTRUCTIONS SN to remind patient of next upcoming appointment date, time, location SN TRANSFER TO [facility] SURVEY INFORMATION Medical/Nurse Field Machinist: Amaury Calderón 1. Your discharge instructions are [...] Reason for Visit: Follow Up Phone Call [0065] Cmt: All Clear Prescriptions as of 12/18/2022 [...] Encounter Status:Closed by AMAUR[facility] CARREON [facility] OLGA Telephone (NIQ) SUKHDEEP SIMENTAL ([id number]) 1965 M Date Time Provider Department 12/14/22 [...] via voice mail, as requested. Scanned into [employer]. Allergies As of Date: 12/14/2022 (No Known [...] Status:Closed by ABBY HERNANDEZ on 12/17/22 [facility] Basic metabolic 2000 panelon 12-11-2022 Anion gap [Moles/Vol] 8 mmol/L Low 9-18 [facility] Comment on above: Order Comment: Speci men Type: BLOOD SPECIMEN Ordering Facility: [facility] Address: [address] [place] [address] Performed By: #### 2 4321-2 #### [facility] CLIA [id number] [address] [place] [address] [place] Calcium [Mass/Vol] 8.7 mg/dL Normal 8.5-10.2 [facility] Comment on above: Order Comment: Speci men Type: BLOOD SPECIMEN Ordering Facility: [facility] Address: [address] [place] [address] Performed By: #### 2 4321-2 #### [facility] CLIA [id number] [address] [place] [address] [place] Chloride [Moles/Vol] 106 mmol/L High 97-105 [facility] Comment on above: Order Comment: Speci men Type: BLOOD SPECIMEN Ordering Facility: [facility] Address: [address] [place] [address] Performed By: #### 2 4321-2 #### [facility] CLIA [id number] [address] [place] [address] [place] CO2 [Moles/Vol] 29 mmol/L Normal 22-30 [facility] Comment on above: Order Comment: Speci men Type: BLOOD SPECIMEN Ordering Facility: [facility] Address: [address] [place] [address] Performed By: #### 2 4321-2 #### [facility] CLIA [id number] [address] [place] [address] [place] Creatinine [Mass/Vol] 1.17 mg/dL Normal 0.73-1.22 [facility] Comment on above: Order Comment: Speci men Type: BLOOD SPECIMEN Ordering Facility: [facility] Address: [address] [place] [address] Performed By: #### 2 4321-2 #### [facility] CLIA [id number] [address] [place] [address] [place] Creatinine and Glomerular filtration rate.predicted panel (S/P/Bld) 72 mL/min/1.73m??? Normal >=60 [facility] Comment on above: Order Comment: Shahrzad dumont Type: BLOOD SPECIMEN Ordering Facility: [facility] Address: [address] [place] [address] Result Comment: Leah mated Glomerular Filtration Rate [...] GFR. Performed By: #### 2 4321-2 #### [facility] CLIA [id number] [address] [place] [address] [place] Glucose [Mass/Vol] 98 mg/dL Normal 74-99 [facility] Comment on above: Order Comment: Shahrzad dumont Type: BLOOD SPECIMEN Ordering Facility: [facility] Address: [address] [place] [address] Result Comment: The [place] [employer] (ADA) provides guidance for cutoff [...] Standards of Medical Care in Diabetes 2016, [place] [employer]. Diabetes Care. 2016.39(Suppl 1). Performed By: #### 2 4321-2 #### [facility] CLIA [id number] [address] [place], [place] [address] [place] Potassium [Moles/Vol] 4.8 mmol/L Normal 3.7-5.1 [facility] Comment on above: Order Comment: Speci men Type: BLOOD SPECIMEN Ordering Facility: [facility] Address: [address] [place] [address] Performed By: #### 2 4321-2 #### [facility] CLIA [id number] [address] [place], [place] [address] [facility] Sodium [Moles/Vol] 143 mmol/L Normal 136-144 [facility] Comment on above: Order Comment: Speci men Type: BLOOD SPECIMEN Ordering Facility: [facility] Address: [address] [place] [address] Performed By: #### 2 4321-2 #### [facility] CLIA [id number] [address] [place], [place] [address] [facility] Urea nitrogen [Mass/Vol] 13 mg/dL Normal 9-24 [facility] Comment on above: Order Comment: Speci men Type: BLOOD SPECIMEN Ordering Facility: [facility] Address: [address] [place] [address] Performed By: #### 2 4321-2 #### [facility] CLIA [id number] [address] [place], [place] [address] [facility] CASE MANAGEMon 12-11-2022 CASE MANAGEM HNO ID: [id number] Author: Gloria Toro RN Service: ? Author Type: Registered Nurse Type: Care Mgt Progress Note Filed: 12/11/2022 3:26 PM Note Text: CARE MANAGEMENT PROGRESS NOTE SERVICE DATE: 12/11/2022 SERVICE TIME: 3:26 pm LOS: 4 days No further skilled PT / OT needed at [place]. SIGNATURE: Gloria Toro RN PATIENT NAME: Sukhdeep Simental DATE: December 11, 2022 TIME: 3:25 PM PAGER/CONTACT #: [phone] Normal [facility] CBC panel Auto (Bld)on 12-11 Erythrocyte distribution width (RBC) [Ratio] 12.5 % Normal 11.5-15.0 [facility] Comment on above: Order Comment: Speci men Type: BLOOD SPECIMEN Ordering Facility: [facility] Address: [address] [place] [address] Performed By: #### 5 8410-2 #### [facility] CLIA [id number] [address] [place] [address] [place] Hematocrit (Bld) [Volume fraction] 34.6 % Low 39.0-51.0 [facility] Comment on above: Order Comment: Speci men Type: BLOOD SPECIMEN Ordering Facility: [facility] Address: [address] [place] [address] Performed By: #### 5 8410-2 #### [facility] IA [id number] [address] [place] [address] [place] Hemoglobin (Bld) [Mass/Vol] 11.7 g/dL Low 13.0-17.0 [facility] Comment on above: Order Comment: Speci men Type: BLOOD SPECIMEN Ordering Facility: [facility] Address: [address] [place] [address] Performed By: #### 5 8410-2 #### [facility] IA [id number] [address] [place] [address] [place] MCH (RBC) [Entitic mass] 32.0 pg Normal 26.0-34.0 [facility] Comment on above: Order Comment: Speci men Type: BLOOD SPECIMEN Ordering Facility: [facility] Address: [address] [place] [address] Performed By: #### 5 8410-2 #### [facility] [place] [id number] [address] [place] [address] [place] MCHC (RBC) [Mass/Vol] 33.8 g/dL Normal 30.5-36.0 [facility] Comment on above: Order Comment: Speci men Type: BLOOD SPECIMEN Ordering Facility: [facility] Address: [address] [place] [address] Performed By: #### 5 8410-2 #### [facility] IA [id number] [address] [place] [address] [place] MCV (RBC) [Entitic vol] 94.5 fL Normal 80.0-100.0 [facility] Comment on above: Order Comment: Speci men Type: BLOOD SPECIMEN Ordering Facility: [facility] Address: [address] [place] [address] Performed By: #### 5 8410-2 #### [facility] CLIA [id number] [address] [place], [place] [address] [place] Nucleated RBC (Bld) [#/Vol] 10*3/uL Normal <0.01 [facility] Comment on above: Order Comment: Speci men Type: BLOOD SPECIMEN Ordering Facility: [facility] Address: [address] [place] [address] Performed By: #### 5 8410-2 #### [facility] CLIA [id number] [address] [place] [address] [place] Platelet mean volume (Bld) [Entitic vol] 9.4 fL Normal 9.0-12.7 [facility] Comment on above: Order Comment: Speci men Type: BLOOD SPECIMEN Ordering Facility: [facility] Address: [address] [place] [address] Performed By: #### 5 8410-2 #### [facility] CLIA [id number] [address] [place] [address] [place] Platelets (Bld) [#/Vol] 196 10*3/uL Normal 150-400 [facility] Comment on above: Order Comment: Speci men Type: BLOOD SPECIMEN Ordering Facility: [facility] Address: [address] [place] [address] Performed By: #### 5 8410-2 #### [facility] CLIA [id number] [address] [place] [address] [place] RBC (Bld) [#/Vol] 3.66 10*6/uL Low 4.20-6.00 [facility] Comment on above: Order Comment: Speci men Type: BLOOD SPECIMEN Ordering Facility: [facility] Address: [address] [place] [address] Performed By: #### 5 8410-2 #### [facility] CLIA [id number] [address] [place] [address] [place] WBC (Bld) [#/Vol] 9.04 10*3/uL Normal 3.70-11.00 [facility] Comment on above: Order Comment: Shahrzad dumont Type: BLOOD SPECIMEN Ordering Facility: [facility] Address: [place] [address] Performed By: #### 5 8410-2 #### [facility] CLIA [id number] [facility] [address] [facility] CNDSon 12-11-2022 CNDS HNO ID: [id number] Author: Brittany Rubio PA-C Service: Neurosurgery Author Type: Physician Field Machinist Type: Discharge Summary Filed: 12/11/2022 10:38 AM [...] you become constipated, you may use any ksfo-plw-okigqpd treatment such as Milk of Magnesia, Sennakot, Prune Juice, Suppositories, etc. in addition to the stool softener/fiber supplement No alcohol or driving while on pain medication Use the dispensed medication (see prescription) You should use an vwey-snu-htgmvfb stool softener (Docusate sodium) and/or a fiber [...] for appointment?: (more content not included)... [facility] CONSULTon 12-11-2022 CONSULT HNO ID: [id number] Author: Jaiden Rucker PA-C Service: Pain Management Author Type: Physician Field Machinist Type: Consults Filed: 12/11/2022 8:09 AM Note [...] 8/10 Lack of pain control with iv sail cutter fentanyl and dilaudid PERTINENT ROS: denies fever, [...] Date Saniya (more content not included)... [facility] NURSING PROGon 12-11-2022 NURSING PROG HNO ID: [id number] Author: Erlinda Bui, RN Service: Nursing Author [...] information. Patient verbalizing understanding of instructions. Normal [facility] Basic metabolic 2000 panelon 12-10-2022 Anion gap [Moles/Vol] 7 mmol/L Low -18 [facility] Comment on above: Order Comment: Speci men Type: BLOOD SPECIMEN Ordering Facility: [facility] Address: [address] [place] [address] Performed By: #### 2 4321-2 #### [facility] CLIA [id number] [address] [place] [address] [place] Calcium [Mass/Vol] 8.3 mg/dL Low 8.5-10.2 [facility] Comment on above: Order Comment: Speci men Type: BLOOD SPECIMEN Ordering Facility: [facility] Address: [address] [place] [address] Performed By: #### 2 4321-2 #### [facility] CLIA [id number] [address] [place] [address] [place] Chloride [Moles/Vol] 107 mmol/L High 97-105 [facility] Comment on above: Order Comment: Speci men Type: BLOOD SPECIMEN Ordering Facility: [facility] Address: [address] [place] [address] Performed By: #### 2 4321-2 #### [facility] CLIA [id number] [address] [place] [address] [place] CO2 [Moles/Vol] 26 mmol/L Normal 22-30 [facility] Comment on above: Order Comment: Speci men Type: BLOOD SPECIMEN Ordering Facility: [facility] Address: [address] [place] [address] Performed By: #### 2 4321-2 #### [facility] CLIA [id number] [address] [place] [address] [place] Creatinine [Mass/Vol] 1.16 mg/dL Normal 0.73-1.22 [facility] Comment on above: Order Comment: Shahrzad dumont Type: BLOOD SPECIMEN Ordering Facility: [facility] Address: [address] [place] [address] Performed By: #### 2 4321-2 #### [facility] CLIA [id number] [address] [place], [place] [address] [place] Creatinine and Glomerular filtration rate.predicted panel (S/P/Bld) 73 mL/min/1.73m??? Normal >=60 [facility] Comment on above: Order Comment: Toneyfrances dumont Type: BLOOD SPECIMEN Ordering Facility: [facility] Address: [address] [place] [address] Result Comment: Leah mated Glomerular Filtration Rate [...] Performed By: #### 2 4321-2 #### [facility] CLIA [id number] [address] [place], [place] [address] [place] Glucose [Mass/Vol] 129 mg/dL High 74-99 [facility] Comment on above: Order Comment: Shahrzad dumont Type: BLOOD SPECIMEN Ordering Facility: [facility] Address: [address] [place] [address] Result Comment: The [place] Diabetes [employer] (ADA) provides guidance for cutoff [...] Standards of Medical Care in Diabetes 2016, [place] [employer]. Diabetes Care. 2016.39(Suppl 1). Performed By: #### 2 4321-2 #### [facility] CLIA [id number] [address] [place] [address] [place] Potassium [Moles/Vol] 4.3 mmol/L Normal 3.7-5.1 [facility] Comment on above: Order Comment: Speci men Type: BLOOD SPECIMEN Ordering Facility: [facility] Address: [address] [place] [address] Performed By: #### 2 4321-2 #### [facility] CLIA [id number] [address] [place] [address] [place] Sodium [Moles/Vol] 140 mmol/L Normal 136-144 [facility] Comment on above: Order Comment: Speci men Type: BLOOD SPECIMEN Ordering Facility: [facility] Address: [address] [place] [address] Performed By: #### 2 4321-2 #### [facility] CLIA [id number] [address] [place] [address] [place] Urea nitrogen [Mass/Vol] 16 mg/dL Normal 9-24 [facility] Comment on above: Order Comment: Speci men Type: BLOOD SPECIMEN Ordering Facility: [facility] Address: [address] [place] [address] Performed By: #### 2 4321-2 #### [facility] IA [id number] [address] [place] [address] [place] CBC panel Auto (Bld)on 12-10 Erythrocyte distribution width (RBC) [Ratio] 12.6 % Normal 11.5-15.0 [facility] Comment on above: Order Comment: Speci men Type: BLOOD SPECIMEN Ordering Facility: [facility] Address: [address] [place] [address] Performed By: #### 5 8410-2 #### [facility] CLIA [id number] [address] [place] [address] [place] Hematocrit (Bld) [Volume fraction] 32.7 % Low 39.0-51.0 [facility] Comment on above: Order Comment: Speci men Type: BLOOD SPECIMEN Ordering Facility: [facility] Address: [address] [place] [address] Performed By: #### 5 8410-2 #### [facility] CLIA [id number] [address] [place] [address] [place] Hemoglobin (Bld) [Mass/Vol] 10.9 g/dL Low 13.0-17.0 [facility] Comment on above: Order Comment: Speci men Type: BLOOD SPECIMEN Ordering Facility: [facility] Address: [address] [place] [address] Performed By: #### 5 8410-2 #### [facility] IA [id number] [address] [place] [address] [place] MCH (RBC) [Entitic mass] 31.5 pg Normal 26.0-34.0 [facility] Comment on above: Order Comment: Speci men Type: BLOOD SPECIMEN Ordering Facility: [facility] Address: [address] [place] [address] Performed By: #### 5 8410-2 #### [facility] IA [id number] [address] [place] [address] [place] MCHC (RBC) [Mass/Vol] 33.3 g/dL Normal 30.5-36.0 [facility] Comment on above: Order Comment: Speci men Type: BLOOD SPECIMEN Ordering Facility: [facility] Address: [address] [place] [address] Performed By: #### 5 8410-2 #### [facility] IA [id number] [address] [place] [address] [place] MCV (RBC) [Entitic vol] 94.5 fL Normal 80.0-100.0 [facility] Comment on above: Order Comment: Speci men Type: BLOOD SPECIMEN Ordering Facility: [facility] Address: [address] [place] [address] Performed By: #### 5 8410-2 #### [facility] IA [id number] [address] [place] [address] [place] Nucleated RBC (Bld) [#/Vol] 10*3/uL Normal <0.01 [facility] Comment on above: Order Comment: Speci men Type: BLOOD SPECIMEN Ordering Facility: [facility] Address: [address] [place] [address] Performed By: #### 5 8410-2 #### [facility] CLIA [id number] [address] [place], [place] [address] [place] Platelet mean volume (Bld) [Entitic vol] 9.6 fL Normal 9.0-12.7 [facility] Comment on above: Order Comment: Speci men Type: BLOOD SPECIMEN Ordering Facility: [facility] Address: [address] [place] [address] Performed By: #### 5 8410-2 #### [facility] CLIA [id number] [address] [place] [address] [place] Platelets (Bld) [#/Vol] 157 10*3/uL Normal 150-400 [facility] Comment on above: Order Comment: Speci men Type: BLOOD SPECIMEN Ordering Facility: [facility] Address: [address] [place] [address] Performed By: #### 5 8410-2 #### [facility] IA [id number] [address] [place] [address] [place] RBC (Bld) [#/Vol] 3.46 10*6/uL Low 4.20-6.00 [facility] Comment on above: Order Comment: Speci men Type: BLOOD SPECIMEN Ordering Facility: [facility] Address: [address] [place] [address] Performed By: #### 5 8410-2 #### [facility] CLIA [id number] [address] [place] [address] [place] WBC (Bld) [#/Vol] 8.16 10*3/uL Normal 3.70-11.00 [facility] Comment on above: Order Comment: Speci men Type: BLOOD SPECIMEN Ordering Facility: [facility] Address: [address] [place] [address] Performed By: #### 5 8410-2 #### [facility] CLIA [id number] [address] [place] [address] [place] THERAPY NTon 12-10-2022 THERAPY NT HNO ID: [id number] Author: Odilon Madrid PT Service: Physical Therapy Author Type: Physical Therapist Type: Therapy (PT/OT/Speech/Resp) Filed: 12/10/2022 11:20 AM Note Text: PHYSICAL THERAPY MISSED VISIT SERVICE DATE: 12/10/2022 SERVICE TIME: 1109 to 1111 ROOM: [place] [address] Patient not seen due to Refused Treatment. Pt reported pain levels are too high to attempt therapy. Will f/u as schedule allows and pain improves. SIGNATURE: Odilon Madrid PT PATIENT NAME: Sukhdeep Simental DATE: December 10, 2022 TIME: 11:20 AM [facility] ALLIED HEALTHon 12-09-2022 ALLIED HEALTH HNO ID: [id number] Author: Akila Huitron RT(R) Service: Radiology Author [...] Jose(R) December 09, 2022 2:01 PM [facility] Basic metabolic 2000 panelon 12-09-2022 Anion gap [Moles/Vol] 6 mmol/L Low 11-12 [facility] Comment on above: Order Comment: Speci men Type: BLOOD SPECIMEN Ordering Facility: [facility] Address: [address] [place] [address] Performed By: #### 2 4321-2 #### [facility] CLIA [id number] [address] [place] [id number] [place] Calcium [Mass/Vol] 8.5 mg/dL Normal 8.5-10.2 [facility] Comment on above: Order Comment: Speci men Type: BLOOD SPECIMEN Ordering Facility: [facility] Address: [address] [place] [address] Performed By: #### 2 4321-2 #### [facility] CLIA [id number] [address] [place] [address] [place] Chloride [Moles/Vol] 106 mmol/L High 97-105 [facility] Comment on above: Order Comment: Speci men Type: BLOOD SPECIMEN Ordering Facility: [facility] Address: [address] [place] [address] Performed By: #### 2 4321-2 #### [facility] CLIA [id number] [address] [place] [address] [place] CO2 [Moles/Vol] 30 mmol/L Normal 22-30 [facility] Comment on above: Order Comment: Speci men Type: BLOOD SPECIMEN Ordering Facility: [facility] Address: [address] [place] [address] Performed By: #### 2 4321-2 #### [facility] IA [id number] [address] [place] [address] [place] Creatinine [Mass/Vol] 1.34 mg/dL High 0.73-1.22 [facility] Comment on above: Order Comment: Speci men Type: BLOOD SPECIMEN Ordering Facility: [facility] Address: [address] [place] [address] Performed By: #### 2 4321-2 #### [facility] CLIA [id number] [address] [place] [address] [place] Creatinine and Glomerular filtration rate.predicted panel (S/P/Bld) 61 mL/min/1.73m??? Normal >=60 [facility] Comment on above: Order Comment: Speci men Type: BLOOD SPECIMEN Ordering Facility: [facility] Address: [address] [place] [address] Result Comment: Leah mated Glomerular Filtration Rate [...] GFR. Performed By: #### 2 4321-2 #### [facility] CLIA [id number] [address] [place] [address] [place] Glucose [Mass/Vol] 105 mg/dL High 74-99 [facility] Comment on above: Order Comment: Shahrzad dumont Type: BLOOD SPECIMEN Ordering Facility: [facility] Address: [place] [address] Result Comment: The [place] [employer] (ADA) provides guidance for cutoff [...] Standards of Medical Care in Diabetes 2016, [place] [employer]. Diabetes Care. 2016.39(Suppl 1). Performed By: #### 2 4321-2 #### [facility] CLIA [id number] [address] [place], [place] [address] [place] Potassium [Moles/Vol] 3.9 mmol/L Normal 3.7-5.1 [facility] Comment on above: Order Comment: Shahrzad dumont Type: BLOOD SPECIMEN Ordering Facility: [facility] Address: [place] [address] Performed By: #### 2 4321-2 #### [facility] CLIA [id number] [address] [place], [place] [address] [place] Sodium [Moles/Vol] 142 mmol/L Normal 136-144 [facility] Comment on above: Order Comment: Speci men Type: BLOOD SPECIMEN Ordering Facility: [facility] Address: [address] [place] [address] Performed By: #### 2 4321-2 #### [facility] CLIA [id number] [address] [place] [address] [place] Urea nitrogen [Mass/Vol] 18 mg/dL Normal 9-24 [facility] Comment on above: Order Comment: Speci men Type: BLOOD SPECIMEN Ordering Facility: [facility] Address: [address] [place] [address] Performed By: #### 2 4321-2 #### [facility] CLIA [id number] [address] [place] [address] [place] CBC panel Auto (Bld)on 12-09 Erythrocyte distribution width (RBC) [Ratio] 12.7 % Normal 11.5-15.0 [facility] Comment on above: Order Comment: Speci men Type: BLOOD SPECIMEN Ordering Facility: [facility] Address: [address] [place] [address] Performed By: #### 5 8410-2 #### [facility] CLIA [id number] [address] [place] [address] [place] Hematocrit (Bld) [Volume fraction] 34.1 % Low 39.0-51.0 [facility] Comment on above: Order Comment: Speci men Type: BLOOD SPECIMEN Ordering Facility: [facility] Address: [address] [place] [address] Performed By: #### 5 8410-2 #### [facility] CLIA [id number] [address] [place] [address] [place] Hemoglobin (Bld) [Mass/Vol] 11.6 g/dL Low 13.0-17.0 [facility] Comment on above: Order Comment: Speci men Type: BLOOD SPECIMEN Ordering Facility: [facility] Address: [address] [place] [address] Performed By: #### 5 8410-2 #### [facility] CLIA [id number] [address] [place] [address] [place] MCH (RBC) [Entitic mass] 32.3 pg Normal 26.0-34.0 [facility] Comment on above: Order Comment: Speci men Type: BLOOD SPECIMEN Ordering Facility: [facility] Address: [address] [place] [address] Performed By: #### 5 8410-2 #### [facility] CLIA [id number] [address] [place] [address] [place] MCHC (RBC) [Mass/Vol] 34.0 g/dL Normal 30.5-36.0 [facility] Comment on above: Order Comment: Speci men Type: BLOOD SPECIMEN Ordering Facility: [facility] Address: [address] [place] [address] Performed By: #### 5 8410-2 #### [facility] CLIA [id number] [address] [place] [address] [place] MCV (RBC) [Entitic vol] 95.0 fL Normal 80.0-100.0 [facility] Comment on above: Order Comment: Speci men Type: BLOOD SPECIMEN Ordering Facility: [facility] Address: [address] [place] [address] Performed By: #### 5 8410-2 #### [facility] IA [id number] [address] [place] [address] [place] Nucleated RBC (Bld) [#/Vol] 10*3/uL Normal <0.01 [facility] Comment on above: Order Comment: Speci men Type: BLOOD SPECIMEN Ordering Facility: [facility] Address: [address] [place] [address] Performed By: #### 5 8410-2 #### [facility] CLIA [id number] [address] [place] [address] [place] Platelet mean volume (Bld) [Entitic vol] 9.6 fL Normal 9.0-12.7 [facility] Comment on above: Order Comment: Speci men Type: BLOOD SPECIMEN Ordering Facility: [facility] Address: [address] [place] [address] Performed By: #### 5 8410-2 #### [facility] CLIA [id number] [address] [place], [place] [address] [place] Platelets (Bld) [#/Vol] 159 10*3/uL Normal 150-400 [facility] Comment on above: Order Comment: Speci men Type: BLOOD SPECIMEN Ordering Facility: [facility] Address: [address] [place] [address] Performed By: #### 5 8410-2 #### [facility] CLIA [id number] [address] [place], [place] [address] [place] RBC (Bld) [#/Vol] 3.59 10*6/uL Low 4.20-6.00 [facility] Comment on above: Order Comment: Speci men Type: BLOOD SPECIMEN Ordering Facility: [facility] Address: [address] [place] [address] Performed By: #### 5 8410-2 #### [facility] IA [id number] [address] [place], [place] [address] [place] WBC (Bld) [#/Vol] 8.72 10*3/uL Normal 3.70-11.00 [facility] Comment on above: Order Comment: Speci men Type: BLOOD SPECIMEN Ordering Facility: [facility] Address: [address] [place] [address] Performed By: #### 5 8410-2 #### [facility] IA [id number] [address] [place], [place] [address] [facility] OF [place] NURSING PROGon 12-09-2022 NURSING PROG HNO ID: [id number] Author: Abdias Pemberton RN Service: Nursing Author Type: Registered Nurse Type: Nursing Progress Note Filed: 12/09/2022 7:21 PM Note Text: 12/09/2022 0826: hydromorphone RD MECHANICAL ENGINEER rate varied. Patient rating pain 8/10 at this time stating oh, its much better than yesterday . 0931: Patient working with PT at this time 1035: Patient resting/sleeping comfortably in bed at this time. 1200: fentaNYL RD MECHANICAL ENGINEER ordered. 1345: Patient ambulating in the hallway with nursing staff and . 1402: Patient at radiology for post-op XR 1406: Hydromorphone RD MECHANICAL ENGINEER discontinued. While discontinuing the hydromorphone RD MECHANICAL ENGINEER, patient made several comments about unused hydromorphone, I can take that medication off your hands. Patient educated that the medication will be properly wasted per protocol. 1407: fentaNYL RD MECHANICAL ENGINEER started and Hydromorphone properly wasted per protocol. [...] Can't you increase my setting on the RD MECHANICAL ENGINEER because I had better pain relief with the Dilaudid pump because I could press the button more frequent? Can you increase the pump settings? [facility] THERAPY NTon 12-09-2022 THERAPY NT HNO ID: [id number] Author: Abdias Crooks OT/L Service: Occupational Therapy Author Type: Occupational Therapist Type: Therapy (PT/OT/Speech/Resp) Filed: 12/09/2022 3:30 PM Note Text: Occupational Therapy Evaluation SERVICE DATE: 12/09/2022 SERVICE TIME: 1438 to 1502 ROOM: [place] [address] Total Joint Replacement Discharge Readiness: Cleared from [...] than expec (more content not included)... [facility] THERAPY NT HNO ID: [id number] Author: Hannah Mota PT, DPT Service: Physical Therapy Author Type: Physical Therapist Type: Therapy (PT/OT/Speech/Resp) Filed: 12/09/2022 10:06 AM Note Text: Physical Therapy Treatment SERVICE DATE: 12/09/2022 SERVICE TIME: 930 to 954 ROOM: [place] [address] Total Joint Replacement Discharge Readiness: Cleared from Physical Therapy Recommended Discharge Disposition: Home Anticipated Discharge Needs: Physical Assist at Home Physical Assist at Home for: Cleaning, Laundry, Meals, Stairs, Safety Recommended Discharge Equipment: No equipment needs anticipated PT 6 Clicks Score: 24 Pt agreeable to participate. Reports slight improvement in pain compared to yesterday but relies highly on RD MECHANICAL ENGINEER. Pt able to ambulate around unit with [...] Difficulty walking-musculoskeleta l Interventions Provided: Therapeutic Activity (60133), Gait Training (50673) Therapeutic Activity (53236) Treatment Minutes: 10 $ Therapeutic Activity (93089) Billed Units: 1 unit Gait Training (87674) Treatment Minutes: 14 $ Gait Training (33643) Billed Units: 1 unit Training AND Education [...] this therapy (more content not included)... [facility] XR LUMBAR 2V AP/LATon 2022 [...] IMPRESSION: Postoperative and degenerative changes as described. Shingler: COURTNEY Transcribe Date/Time: Dec 09 2022 3:39P Dictated by : DONNY WOO DO This examination was interpreted and the report reviewed and electronically signed by: DONNY WOO DO on Dec 09 2022 3:42PM EST [id number] Normal [facility] Basic metabolic 2000 panelon 12-08-2022 Anion gap [Moles/Vol] 7 mmol/L Low 9-18 [facility] Comment on above: Order Comment: Speci men Type: BLOOD SPECIMEN Ordering Facility: [facility] Address: [address] [place] [address] Performed By: #### 2 4321-2 #### [facility] CLIA [id number] [address] [place] [address] [place] Calcium [Mass/Vol] 8.2 mg/dL Low 8.5-10.2 [facility] Comment on above: Order Comment: Speci men Type: BLOOD SPECIMEN Ordering Facility: [facility] Address: [address] [place] [address] Performed By: #### 2 4321-2 #### [facility] CLIA [id number] [address] [place] [address] [place] Chloride [Moles/Vol] 106 mmol/L High 97-105 [facility] Comment on above: Order Comment: Speci men Type: BLOOD SPECIMEN Ordering Facility: [facility] Address: [address] [place] [address] Performed By: #### 2 4321-2 #### [facility] CLIA [id number] [address] [place], [place] [address] [place] CO2 [Moles/Vol] 28 mmol/L Normal 22-30 [facility] Comment on above: Order Comment: Speci men Type: BLOOD SPECIMEN Ordering Facility: [facility] Address: [address] [place] [address] Performed By: #### 2 4321-2 #### [facility] CLIA [id number] [address] [place] [id number] [place] Creatinine [Mass/Vol] 1.35 mg/dL High 0.73-1.22 [facility] Comment on above: Order Comment: Shahrzad dumont Type: BLOOD SPECIMEN Ordering Facility: [facility] Address: [address] [place] [address] Performed By: #### 2 4321-2 #### [facility] CLIA [id number] [address] [place] [address] [place] Creatinine and Glomerular filtration rate.predicted panel (S/P/Bld) 60 mL/min/1.73m??? Normal >=60 [facility] Comment on above: Order Comment: Shahrzad dumont Type: BLOOD SPECIMEN Ordering Facility: [facility] Address: [address] [place] [address] Result Comment: Leah mated Glomerular Filtration Rate [...] GFR. Performed By: #### 2 4321-2 #### [facility] CLIA [id number] [address] [place], [place] [address] [place] Glucose [Mass/Vol] 139 mg/dL High 74-99 [facility] Comment on above: Order Comment: Shahrzad dumont Type: BLOOD SPECIMEN Ordering Facility: [facility] Address: [address] [place] [address] Result Comment: The [place] [employer] (ADA) provides guidance for cutoff [...] Standards of Medical Care in Diabetes 2016, [place] [employer]. Diabetes Care. 2016.39(Suppl 1). Performed By: #### 2 4321-2 #### [facility] CLIA [id number] [address] [place] [address] [place] Potassium [Moles/Vol] 3.7 mmol/L Normal 3.7-5.1 [facility] Comment on above: Order Comment: Speci men Type: BLOOD SPECIMEN Ordering Facility: [facility] Address: [address] [place] [address] Performed By: #### 2 4321-2 #### [facility] CLIA [id number] [address] [place] [address] [place] Sodium [Moles/Vol] 141 mmol/L Normal 136-144 [facility] Comment on above: Order Comment: Speci men Type: BLOOD SPECIMEN Ordering Facility: [facility] Address: [address] [place] [address] Performed By: #### 2 4321-2 #### [facility] CLIA [id number] [address] [place] [address] [place] Urea nitrogen [Mass/Vol] 23 mg/dL Normal 9-24 [facility] Comment on above: Order Comment: Speci men Type: BLOOD SPECIMEN Ordering Facility: [facility] Address: [address] [place] [address] Performed By: #### 2 4321-2 #### [facility] CLIA [id number] [address] [place] [address] OF [place] CASE MGT INIT ASSESon 2022 CASE MGT INIT ASSES HNO ID: [id number] Author: Gloria Toro RN Service: ? Author Type: Registered Nurse Type: Care Mgt Initial Assessment Filed: 12/08/2022 8:48 AM Note Text: CARE MANAGEMENT: ASSESSMENT AND DISCHARGE PLAN SERVICE DATE: December 08, 2022 SERVICE TIME: 8:46 am PCP: Blayne Isabel MD Primary Contact: Extended Emergency Contact Information Primary Emergency Contact: Darryl Simental Address: [address] [place] [address] [place] Mobile Relation: Spouse [...] to go home, General wellness, Less pain [place] of Choice Explained: [place] of Choice Given: No Reason Not Given: No placements necessary Discharge Planning Participant(s): Patient Patient/Family Comments: Caregiver Assessment: Transport at Discharge: Needs Prior to Discharge: Needs Prior to Discharge: To Be Determined;OT/PT Evaluation Post-Acute Discharge Plan: CM met with patient at the bedside this a.m., has rollator, cane AND walker, says will be driving him home at [place] and can assist him as well, per eval, no further skilled PT / OT needed at [place]. CM Department will continue to follow until [place]. SIGNATURE: Gloria Toro RN PATIENT NAME: Sukhdeep Simental DATE: December 08, 2022 TIME: 8:46 AM CONTACT #: [phone] [facility] CBC panel Auto (Bld)on 12-08 Erythrocyte distribution width (RBC) [Ratio] 12.8 % Normal 11.5-15.0 [facility] Comment on above: Order Comment: Shahrzad dumont Type: BLOOD SPECIMEN Ordering Facility: [facility] Address: [address] [place] [address] Performed By: #### 5 8410-2 #### [facility] CLIA [id number] [address] [place] [address] [place] Hematocrit (Bld) [Volume fraction] 34.8 % Low 39.0-51.0 [facility] Comment on above: Order Comment: Shahrzad dumont Type: BLOOD SPECIMEN Ordering Facility: [facility] Address: [address] [place] [address] Performed By: #### 5 8410-2 #### [facility] IA [id number] [address] [place] [address] [place] Hemoglobin (Bld) [Mass/Vol] 11.7 g/dL Low 13.0-17.0 [facility] Comment on above: Order Comment: Speci men Type: BLOOD SPECIMEN Ordering Facility: [facility] Address: [address] [place] [address] Performed By: #### 5 8410-2 #### [facility] IA [id number] [address] [place] [address] [place] MCH (RBC) [Entitic mass] 31.8 pg Normal 26.0-34.0 [facility] Comment on above: Order Comment: Speci men Type: BLOOD SPECIMEN Ordering Facility: [facility] Address: [address] [place] [address] Performed By: #### 5 8410-2 #### [facility] IA [id number] [address] [place] [address] [place] MCHC (RBC) [Mass/Vol] 33.6 g/dL Normal 30.5-36.0 [facility] Comment on above: Order Comment: Speci men Type: BLOOD SPECIMEN Ordering Facility: [facility] Address: [address] [place] [address] Performed By: #### 5 8410-2 #### [facility] IA [id number] [address] [place] [address] [place] MCV (RBC) [Entitic vol] 94.6 fL Normal 80.0-100.0 [facility] Comment on above: Order Comment: Speci men Type: BLOOD SPECIMEN Ordering Facility: [facility] Address: [address] [place] [address] Performed By: #### 5 8410-2 #### [facility] IA [id number] [address] [place] [address] [place] Nucleated RBC (Bld) [#/Vol] 10*3/uL Normal <0.01 [facility] Comment on above: Order Comment: Speci men Type: BLOOD SPECIMEN Ordering Facility: [facility] Address: [address] [place] [address] Performed By: #### 5 8410-2 #### [facility] CLIA [id number] [address] [place] [address] [place] Platelet mean volume (Bld) [Entitic vol] 9.4 fL Normal 9.0-12.7 [facility] Comment on above: Order Comment: Speci men Type: BLOOD SPECIMEN Ordering Facility: [facility] Address: [address] [place] [address] Performed By: #### 5 8410-2 #### [facility] CLIA [id number] [address] [place] [address] [place] Platelets (Bld) [#/Vol] 162 10*3/uL Normal 150-400 [facility] Comment on above: Order Comment: Speci men Type: BLOOD SPECIMEN Ordering Facility: [facility] Address: [address] [place] [address] Performed By: #### 5 8410-2 #### [facility] CLIA [id number] [address] [place] [address] [place] RBC (Bld) [#/Vol] 3.68 10*6/uL Low 4.20-6.00 [facility] Comment on above: Order Comment: Speci men Type: BLOOD SPECIMEN Ordering Facility: [facility] Address: [address] [place] [address] Performed By: #### 5 8410-2 #### [facility] CLIA [id number] [address] [place] [address] [place] WBC (Bld) [#/Vol] 7.95 10*3/uL Normal 3.70-11.00 [facility] Comment on above: Order Comment: Speci men Type: BLOOD SPECIMEN Ordering Facility: [facility] Address: [address] [place] [address] Performed By: #### 5 8410-2 #### [facility] CLIA [id number] [address] [place] [address] [place] CONSULTon 12-08-2022 CONSULT HNO ID: [id number] Author: Lulu Oviedo MD Service: General Internal [...] Labs 12/08 (more content not included)... [facility] NURSING PROGon 12-08-2022 NURSING PROG HNO ID: [id number] Author: Abdias Pemberton, RN Service: Nursing Author [...] notified of the patient's increased pain after RD MECHANICAL ENGINEER was DC'ed earlier and transitioned to PO medications. Hydromorphone RD MECHANICAL ENGINEER reordered per Dr. Mathew. 1729: Hydromorphone RD MECHANICAL ENGINEER restarted. 1735: Patient assisted by nursing staff to bed and states that his pain has decreased. Patient resting comfortably in bed at this time. 1900: Patient resting comfortably in bed at this time. [facility] THERAPY NTon 12-08-2022 THERAPY NT HNO ID: [id number] Author: Taylor Montoya OTR/Kelly Service: Occupational Therapy Author Type: Occupational Therapist Type: Therapy (PT/OT/Speech/Resp) Filed: 12/08/2022 12:35 PM Note Text: OCCUPATIONAL THERAPY MISSED VISIT SERVICE DATE: 12/08/2022 SERVICE TIME: 1233 to 1233 ROOM: [place] [address] Patient not seen due to Refused Treatment. Patient having a significant amount of pain. Offered patient option of working with OT tomorrow. Pt would prefer OT evaluation tomorrow. SIGNATURE: URSULA Glynn/Kelly PATIENT NAME: Sukhdeep Simental DATE: December 08, 2022 TIME: 12:34 PM [facility] THERAPY NT HNO ID: [id number] Author: Jean-Pierre Lutz, PT, DPT Service: Physical Therapy Author Type: Physical Therapist Type: Therapy (PT/OT/Speech/Resp) Filed: 12/08/2022 8:44 AM Note Text: Physical Therapy Evaluation SERVICE DATE: 12/08/2022 SERVICE TIME: 807 to 830 ROOM: [place] [address] Cleared from Physical Therapy Recommended Discharge Disposition: [...] Weakness (generalized) Interventions Provided: Evaluation, Gait Training (12076) $ Evaluation-Low (63159) Billed Units: 1 unit Gait Training (74433) Treatment Minutes: 8 $ Gait Training (82237) Billed Units: 1 unit Training AND Education [...] December 08, 2022 TIME: 8:44 AM [facility] ANES POSTPROC EVALon 023 ANES POSTPROC EVAL HNO ID: [id number] Author: Ankit Orlando MD Service: Anesthesiology Author Type: Anesthesiologist Type: Anesthesia Postprocedure Evaluation Filed: 12/07/2022 3:37 PM Note Text: POST ANESTHESIA EVALUATION NOTE : 1965 Procedure Summary Date: 12/07/22 Room / Location: [place] [address] / OR Anesthesia Start: 737 Anesthesia Stop: [...] December 07, 2022 TIME: 3:37 PM CSN: [id number] [facility] ANES PRE-OPon 12-07-2022 ANES PRE-OP HNO ID: [id number] Author: Nasim Pruett I, MD Service: Anesthesiology [...] December 07, 2022 TIME: 7:01 AM CSN: [id number] [facility] BRIEF OP NOTon 12-07-2022 BRIEF OP NOT HNO ID: [id number] Author: Thomas Mathew MD Service: Neurosurgery Author Type: Physician Type: Brief Op Note Filed: 12/07/2022 12:49 PM Note Text: BRIEF OPERATIVE / PROCEDURE NOTE LOG ID: [id number] SURGERY/PROCEDURE DATE: 12/07/2022 INCISION/PROCEDURE START TIME: 8:09 AM INCISION CLOSE/PROCEDURE END TIME: 12:34 PM SURGEON(S)/PROCEDURALI ST(S) AND PRODUCTION LABORER(S): Surgeon(s) and Role: * Thomas Mathew MD [...] December 07, 2022 TIME: 12:31 PM [facility] NURSING PROGon 12-07-2022 NURSING PROG HNO ID: [id number] Author: Livia Calix RN Service: ? Author Type: Registered Nurse Type: Nursing Progress Note Filed: 12/07/2022 2:48 PM Note Text: Transfer Note: PATIENT NAME: Sukhdeep Simental Patient Location: [address]/[place] [address] Room: [place] [address] Patient transferred into room/unit 503-2 in stable condition. Patient educated on use of call light, fall precautions, and incentive spirometer. No futher actions taken at this time. Will continue to monitor and check with patient. [facility] OPERATIVE NOon 12-07-2022 OPERATIVE NO HNO ID: [id number] Author: Thomas Mathew MD Service: Neurosurgery Author Type: Physician Type: Operative Report Filed: 12/07/2022 3:54 PM Note Text: OPERATIVE/PROCEDURE REPORT LOG ID: [id number] SURGERY/PROCEDURE DATE: 12/07/2022 INCISION/PROCEDURE START TIME: 8:09 AM INCISION CLOSE/PROCEDURE END TIME: 12:34 PM SURGEON(S)/PROCEDURALI ST(S) AND PRODUCTION LABORER(S): Surgeon(s) and Role: * Thomas Mathew MD [...] and sized at a 10 mm. The Kinetic Social system was the instrumentation system used. Local [...] was used to make a small pilot safety inspector hole. The gear shift along with pedicle [...] Implant Name Type Inv. Item Serial No. Grinding Wheel Dresser Lot No. LRB No. Used Action VITOSS [id number] BIOACTIVE BONE GRAFT SUBSTITUTE 5.0CUB CM Implant [place] [id number] N/A 1 Implanted CAGE TRITANIUM 6D [id number] SPINAL STERILE LATEX FREE LUMBAR POSTERIOR - [id number] Implant CAGE TRITANIUM 6D [id number] SPINAL STERILE LATEX FREE LUMBAR POSTERIOR [place] SPINE T9H8 N/A 1 Implanted CAGE TRITANIUM 6D [id number] SPINAL STERILE LATEX FREE LUMBAR POSTERIOR - [id number] Implant CAGE TRITANIUM 6D [id number] (more content not included)... [facility] XR LUMBAR 2V AP/LATon 2022 [...] examination for surgical planning and documentation. . Shingler: PSCB Transcribe Date/Time: Dec 07 2022 3:13P Dictated by : DONNY WOO DO This examination was interpreted and the report reviewed and electronically signed by: DONNY WOO DO on Dec 07 2022 3:15PM EST [id number] [facility] XR LUMBAR 2V AP/LAT * * *Final Report* * * DATE OF EXAM: Dec 07 2022 11:33AM [place] [id number] - XR LUMBAR 2V AP/LAT / PROCEDURE [...] Intraoperative examination for surgical planning and documentation. Shingler: COURTNEY Transcribe Date/Time: Dec 07 2022 2:43P Dictated by : DONNY WOO DO This examination was interpreted and the report reviewed and electronically signed by: DONNY WOO DO on Dec 07 2022 2:46PM EST [id number] [facility] XR LUMBAR 2V AP/LAT * * *Final [...] examination for surgical planning and documentation. . Shingler: [employer] Transcribe Date/Time: Dec 07 2022 2:37P Dictated by : DONNY WOO DO This examination was interpreted and the report reviewed and electronically signed by: DONNY WOO DO on Dec 07 2022 2:40PM EST [id number] [facility] 11-29-2022 [facility] Telephone (NIQ) SUKHDEEP SIMENTAL ([id number]) 1965 M Date Time Provider Department 11/29/22 THOMAS MATHEW [facility] During your visit today, we recorded the following information about you: Moriah Ferguson 11/29/2022 9:50 AM Signed Patient called regarding a C/9 being filed for his Dec 07 surgery. He spoke to his [facility] contact and they said nothing has been filed yet. Please update patient. Juan Pablo Nova RN 11/29/2022 10:27 AM Signed C9 sent to provider for signature. Awaiting signature. Juan Pablo Nova RN 11/29/2022 12:20 PM Signed Signed C9 sent to [facility] and [facility]. Faxed verifications received. Kathe Lezama 12/05/2022 11:01 AM Signed Patient calling asking for an update on his C9 and surgery approval. He would like to know if nurse can reach out to [facility] for an update and let him know. Juan Pablo Nova RN 12/05/2022 11:43 AM Signed Called Sunita and discussed patient's upcoming surgery. Per Sunita she did already explain to the patient that the information was submitted to the Aviation Maintenance Instructor for review and does take up to 5 business days for a decision. Juan Pablo Nova RN 12/05/2022 1:16 PM Signed Spoke with patient. Informed case is still on for Saturday and that I spoke with Sunita. Patient appreciative of call. Ekaterina Rondon 12/06/2022 11:34 AM Addendum Sunita called from [facility], regarding patient surgery tomorrow. Surgery has been approved based on what it was shown on the medical record. Sunita wanted a called back # [phone] Ekaterina Rondon 12/06/2022 11:35 AM Signed [facility] Scan in patient chart [...] Date Reviewed: 11/21/2022 Reviewed by: Maite Galloway APRN.CONDENSER TUBE TENDER - Fully Assessed Reason for Visit: Bwc [...] by JUAN PABLO NOVA on 11/29/22 Normal [facility] CBC W Auto Differential pane l (Bld)on 11-21-2022 Basophils (Bld) [#/Vol] 0.04 10*3/uL Normal <0.11 [facility] Comment on above: Order Comment: Speci men Type: BLOOD SPECIMENOrdering Facility: [facility] Address: [address] [address] Performed By: #### 5 7021-8 ####[facility] LABIA [id number] [place] [address] [place] Basophils/100 WBC (Bld) 0.8 % Normal [facility] Comment on above: Order Comment: Speci men Type: BLOOD SPECIMENOrdering Facility: [facility] Address: [address] [address] Performed By: #### 5 7021-8 ####[facility] LABIA [id number] [address] [place] Differential cell count method Nom (Bld) Auto Normal [facility] Comment on above: Order Comment: Speci men Type: BLOOD SPECIMENOrdering Facility: [facility] Address: [address] [place] [address] Performed By: #### 5 7021-8 ####[facility] LABCLIA [id number] [place] [address] [place] Eosinophils (Bld) [#/Vol] 0.11 10*3/uL Normal <0.46 [facility] Comment on above: Order Comment: Speci men Type: BLOOD SPECIMENOrdering Facility: [facility] Address: [address] [place] [address] Performed By: #### 5 7021-8 ####[facility] LABCLIA [id number] [address] [place] Eosinophils/100 WBC (Bld) 2.1 % Normal [facility] Comment on above: Order Comment: Speci men Type: BLOOD SPECIMENOrdering Facility: [facility] Address: [address] [place], [place] [address] Performed By: #### 5 7021-8 ####[facility] LABCLIA [id number] [place] [address] [place] Erythrocyte distribution width (RBC) [Ratio] 12.4 % Normal 11.5-15.0 [facility] Comment on above: Order Comment: Speci men Type: BLOOD SPECIMENOrdering Facility: [facility] Address: [address] [place], [place] [address] Performed By: #### 5 7021-8 ####[facility] LABCLIA [id number] [place] [address] [place] Hematocrit (Bld) [Volume fraction] 42.9 % Normal 39.0-51.0 [facility] Comment on above: Order Comment: Speci men Type: BLOOD SPECIMENOrdering Facility: [facility] Address: [address] Performed By: #### 5 7021-8 ####[facility] LABCLIA [id number] [place] [address] [place] Hemoglobin (Bld) [Mass/Vol] 14.5 g/dL Normal 13.0-17.0 [facility] Comment on above: Order Comment: Speci men Type: BLOOD SPECIMENOrdering Facility: [facility] Address: [address] [place], [place] [address] Performed By: #### 5 7021-8 ####[facility] LABCLIA [id number] [place] [address] [place] Immature granulocytes (Bld) [#/Vol] 10*3/uL Normal <0.10 [facility] Comment on above: Order Comment: Speci men Type: BLOOD SPECIMENOrdering Facility: [facility] Address: [address] [place], [place] [address] Performed By: #### 5 7021-8 ####[facility] LABCLIA [id number] [place] [address] [place] Immature granulocytes/100 WBC (Bld) 0.4 % Normal [facility] Comment on above: Order Comment: Speci men Type: BLOOD SPECIMENOrdering Facility: [facility] Address: [address] [place], [place] [address] Performed By: #### 5 7021-8 ####[facility] LABCLIA [id number] [place] [address] [place] Lymphocytes (Bld) [#/Vol] 1.45 10*3/uL Normal 1.00-4.00 [facility] Comment on above: Order Comment: Speci men Type: BLOOD SPECIMENOrdering Facility: [facility] Address: [address] [place], [place] [address] Performed By: #### 5 7021-8 ####[facility] LABCLIA [id number] [address] [place] Lymphocytes/100 WBC (Bld) 27.4 % Normal [facility] Comment on above: Order Comment: Speci men Type: BLOOD SPECIMENOrdering Facility: [facility] Address: [address] [place] [address] Performed By: #### 5 7021-8 ####[facility] LABIA [id number] [address] MCH (RBC) [Entitic mass] 31.7 pg Normal 26.0-34.0 [facility] Comment on above: Order Comment: Speci men Type: BLOOD SPECIMENOrdering Facility: [facility] Address: [address] [place] [address] Performed By: #### 5 7021-8 ####[facility] LABIA [id number] [address] [place] [facility] MCHC (RBC) [Mass/Vol] 33.8 g/dL Normal 30.5-36.0 [facility] Comment on above: Order Comment: Speci men Type: BLOOD SPECIMENOrdering Facility: [facility] Address: [address] [place], [place] [address] Performed By: #### 5 7021-8 ####[facility] LABIA [id number] [address] [place] MCV (RBC) [Entitic vol] 93.7 fL Normal 80.0-100.0 [facility] Comment on above: Order Comment: Speci men Type: BLOOD SPECIMENOrdering Facility: [facility] Address: [address] [place], [place] [address] Performed By: #### 5 7021-8 ####[facility] LABIA [id number] [place] [address] [place] Monocytes (Bld) [#/Vol] 0.49 10*3/uL Normal <0.87 [facility] Comment on above: Order Comment: Speci men Type: BLOOD SPECIMENOrdering Facility: [facility] Address: [address] Performed By: #### 5 7021-8 ####[facility] LABIA [id number] [place] [address] [place] Monocytes/100 WBC (Bld) 9.2 % Normal [facility] Comment on above: Order Comment: Speci men Type: BLOOD SPECIMENOrdering Facility: [facility] Address: [address] Performed By: #### 5 7021-8 ####[facility] LABIA [id number] [place] [address] [place] Neutrophils (Bld) [#/Vol] 3.19 10*3/uL Normal 1.45-7.50 [facility] Comment on above: Order Comment: Speci men Type: BLOOD SPECIMENOrdering Facility: [facility] Address: [address] Performed By: #### 5 7021-8 ####[facility] LABIA [id number] [place] [address] [place] Neutrophils/100 WBC (Bld) 60.1 % Normal [facility] Comment on above: Order Comment: Speci men Type: BLOOD SPECIMENOrdering Facility: [facility] Address: [address] [place] [address] Performed By: #### 5 7021-8 ####[facility] LABIA [id number] [place] [address] [place] Nucleated RBC (Bld) [#/Vol] 10*3/uL Normal <0.01 [facility] Comment on above: Order Comment: Speci men Type: BLOOD SPECIMENOrdering Facility: [facility] Address: [address] [place] [address] Performed By: #### 5 7021-8 ####[facility] LABIA [id number] [place] [address] [place] Nucleated RBC/100 WBC (Bld) [Ratio] 0.0 /100 WBC Normal [facility] Comment on above: Order Comment: Speci men Type: BLOOD SPECIMENOrdering Facility: [facility] Address: [address] [place] [address] Performed By: #### 5 7021-8 ####[facility] LABIA [id number] [place] [address] [place] Platelet mean volume (Bld) [Entitic vol] 9.4 fL Normal 9.0-12.7 [facility] Comment on above: Order Comment: Speci men Type: BLOOD SPECIMENOrdering Facility: [facility] Address: [address] [place] [address] Performed By: #### 5 7021-8 ####[facility] LABIA [id number] [place] [address] [place] Platelets (Bld) [#/Vol] 222 10*3/uL Normal 150-400 [facility] Comment on above: Order Comment: Speci men Type: BLOOD SPECIMENOrdering Facility: [facility] Address: [address] [place] [address] Performed By: #### 5 7021-8 ####[facility] LABIA [id number] [place] [address] [place] RBC (Bld) [#/Vol] 4.58 10*6/uL Normal 4.20-6.00 [facility] Comment on above: Order Comment: Speci men Type: BLOOD SPECIMENOrdering Facility: [facility] Address: [address] [place] [address] Performed By: #### 5 7021-8 ####[facility] LABIA [id number] [place] [address] [place] WBC (Bld) [#/Vol] 5.30 10*3/uL Normal 3.70-11.00 [facility] Comment on above: Order Comment: Speci men Type: BLOOD SPECIMENOrdering Facility: [facility] Address: [address] [place] [address] Performed By: #### 5 7021-8 ####[facility] LABCLIA [id number] [address] STATES OF [facility] CONFIRM BLOOD TYPEon 023 ABO A Normal [facility] Comment on above: Order Comment: Speci men Type: BLOOD SPECIMENOrdering Facility: [facility] Address: [address] [place] [address] Performed By: #### C ONABO ####[facility] BLOOD BANKCLIA [id number] [place] [address] [place] Rh Nom (Bld) Negative Normal [facility] Comment on above: Order Comment: Speci men Type: BLOOD SPECIMENOrdering Facility: [facility] Address: [address] [place] [address] Performed By: #### C ONABO ####[facility] BLOOD BANKCLIA [id number] [place] [address] [place] Comprehensive metabolic 2000 panelon 11-21-2022 Albumin [Mass/Vol] 4.3 g/dL Normal 3.9-4.9 [facility] Comment on above: Order Comment: Speci men Type: BLOOD SPECIMENOrdering Facility: [facility] Address: [address] [place] [address] Performed By: #### 2 4323-8 ####[facility] LABCLIA [id number] [place] [address] [place] ALP [Catalytic activity/Vol] 68 U/L Normal 38-113 [facility] Comment on above: Order Comment: Speci men Type: BLOOD SPECIMENOrdering Facility: [facility] Address: [address] [place] [address] Performed By: #### 2 4323-8 ####[facility] LABCLIA [id number] [address] [place] ALT [Catalytic activity/Vol] 16 U/L Normal 10-54 [facility] Comment on above: Order Comment: Speci men Type: BLOOD SPECIMENOrdering Facility: [facility] Address: [address] [place] [address] Performed By: #### 2 4323-8 ####[facility] LABCLIA [id number] [place] [address] [place] Anion gap [Moles/Vol] 10 mmol/L Normal 9-18 [facility] Comment on above: Order Comment: Speci men Type: BLOOD SPECIMENOrdering Facility: [facility] Address: [address] [place] [address] Performed By: #### 2 4323-8 ####[facility] LABCLIA [id number] [place] [address] [place] AST [Catalytic activity/Vol] 21 U/L Normal 14-40 [facility] Comment on above: Order Comment: Speci men Type: BLOOD SPECIMENOrdering Facility: [facility] Address: [address] [place] [address] Performed By: #### 2 4323-8 ####[facility] LABCLIA [id number] [place] [address] [place] Bilirubin [Mass/Vol] 0.5 mg/dL Normal 0.2-1.3 [facility] Comment on above: Order Comment: Speci men Type: BLOOD SPECIMENOrdering Facility: [facility] Address: [address] [place] [address] Performed By: #### 2 4323-8 ####[facility] LABCLIA [id number] [place] [address] [place] Calcium [Mass/Vol] 9.9 mg/dL Normal 8.5-10.2 [facility] Comment on above: Order Comment: Speci men Type: BLOOD SPECIMENOrdering Facility: [facility] Address: [address] Performed By: #### 2 4323-8 ####[facility] LABCLIA [id number] [place] [address] [place] Chloride [Moles/Vol] 106 mmol/L High 97-105 [facility] Comment on above: Order Comment: Speci men Type: BLOOD SPECIMENOrdering Facility: [facility] Address: [address] [place] [address] Performed By: #### 2 4323-8 ####[facility] LABCLIA [id number] [place] [address] [place] CO2 [Moles/Vol] 27 mmol/L Normal 22-30 [facility] Comment on above: Order Comment: Speci men Type: BLOOD SPECIMENOrdering Facility: [facility] Address: [address] [place] [address] Performed By: #### 2 4323-8 ####[facility] LABCLIA [id number] [place] [address] [place] Creatinine [Mass/Vol] 1.22 mg/dL Normal 0.73-1.22 [facility] Comment on above: Order Comment: Speci men Type: BLOOD SPECIMENOrdering Facility: [facility] Address: [address] Performed By: #### 2 4323-8 ####[facility] LABCLIA [id number] [place] [address] [place] Creatinine and Glomerular filtration rate.predicted panel (S/P/Bld) 68 mL/min/1.73m??? Normal >=60 [facility] Comment on above: Order Comment: Speci men Type: BLOOD SPECIMENOrdering Facility: [facility] Address: [address] [id number] Result Comment: Leah mated Glomerular Filtration Rate [...] actual GFR. Performed By: #### 2 4323-8 ####[facility] LABCLIA [id number] [place] [address] [place] Glucose [Mass/Vol] 111 mg/dL High 74-99 [facility] Comment on above: Order Comment: Shahrzad dumont Type: BLOOD SPECIMENOrdering Facility: [facility] Address: [address] [address] Result Comment: The [place] Diabetes Association (ADA) provides guidance for cutoff [...] Standards of Medical Care in Diabetes 2016, [place] [employer] Association. Diabetes Care. 2016.39(Suppl 1). Performed By: #### 2 4323-8 ####[facility] LABCLIA [id number] [place] [address] [place] Potassium [Moles/Vol] 4.2 mmol/L Normal 3.7-5.1 [facility] Comment on above: Order Comment: Shahrzad dumont Type: BLOOD SPECIMENOrdering Facility: [facility] Address: [address] [address] Performed By: #### 2 4323-8 ####[facility] LABCLIA [id number] [place] [address] [place] Protein [Mass/Vol] 7.0 g/dL Normal 6.3-8.0 [facility] Comment on above: Order Comment: Speci men Type: BLOOD SPECIMENOrdering Facility: [facility] Address: [address] [place] [address] Performed By: #### 2 4323-8 ####[facility] LABCLIA [id number] [place] [address] [place] Sodium [Moles/Vol] 143 mmol/L Normal 136-144 [facility] Comment on above: Order Comment: Speci men Type: BLOOD SPECIMENOrdering Facility: [facility] Address: [address] [place] [address] Performed By: #### 2 4323-8 ####[facility] LABIA [id number] [address] STATES OF [facility] Urea nitrogen [Mass/Vol] 22 mg/dL Normal 9-24 [facility] Comment on above: Order Comment: Speci men Type: BLOOD SPECIMENOrdering Facility: [facility] Address: [address] [place] [address] Performed By: #### 2 4323-8 ####[facility] LABIA [id number] [address] [place] [id number] 11-21-2022 ECG01 Ventricular Rate : 6 5 BPM Atrial Rate : 65 BPM P-R Interval : 180 ms QRS Duration : 98 ms Q-T Interval : 440 ms QTC Calculation(Bazett) : 457 ms Calculated P Mora : 0 degrees Calculated R Mora : -10 degrees Calculated T Mora : 49 degrees NORMAL SINUS RHYTHM NORMAL ECG Confirmed by SHANIA RESTREPO M.D. ([id number]) on 11/22/2022 12:00:34 PM NAME : SUKHDEEP SIMENTAL PID : [id number] : 1965 Gender : Male Race : ORD : Procedure Date : Nov 21 2022 10:59:49 Edit Date : Nov 22 2022 12:00:38 Diagnosis: NORMAL SINUS RHYTHM NORMAL ECG Confirmed by SHANIA RESTREPO M.D. ([id number]) on 11/22/2022 12:00:34 PM Test Reason : SURGERY Location : 545 : [facility] Overread By : SHANIA RESTREPO M.D. Edited By : SHANIA RESTREPO M.D. 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 Author Type: Nurse Practitioner Type: [...] pain. Skin: (more content not included)... Normal [facility] HbA1c (Bld)on 11-21-2022 Average glucose Estimated from glycated hemoglobin (Bld) [Mass/Vol] 111 mg/dL Normal [facility] Comment on above: Order Comment: Shahrzad dumont Type: BLOOD SPECIMENOrdering Facility: [facility] Address: [address] [address] Result Comment: eAG: (Estimated average glucose) is a calculated value from HgbA1c and is member service representative of the average blood glucose level in the last 2-3 month period. Performed By: #### 5 5454-3 ####[facility] LABCLIA [id number] [place] [address] [place] HbA1c (Bld) [Mass fraction] 5.5 % Normal 4.3-5.6 [facility] Comment on above: Order Comment: Shahrzad dumont Type: BLOOD SPECIMENOrdering Facility: [facility] Address: [address] [address] Result Comment: [place] Diabetes Association guidelines indicate that patients with HgbA1c in the range 5.7-6.4% are at increased risk for development of diabetes, and intervention by lifestyle modification may be beneficial. HgbA1c greater or equal to 6.5% is considered diagnostic of diabetes. Performed By: #### 5 5454-3 ####[facility] LABCLIA [id number] [address] OF [place] TYPE AND SCREEN,30 DAYon ABO A Normal [facility] Comment on above: Order Comment: Speci men Type: BLOOD SPECIMENOrdering Facility: [facility] Address: [address] [place] [address] Performed By: #### T SCR30 ####[facility] BLOOD BANKCLIA [id number] [address] HISTORICAL AB SCR STATUS Negative Normal [facility] Comment on above: Order Comment: Speci men Type: BLOOD SPECIMENOrdering Facility: [facility] Address: [address] [place] [address] Performed By: #### T SCR30 ####[facility] BLOOD BANKCLIA [id number] [address] Rh Nom (Bld) Negative Normal [facility] Comment on above: Order Comment: Speci men Type: BLOOD SPECIMENOrdering Facility: [facility] Address: [address] [place] [address] Performed By: #### T SCR30 ####[facility] BLOOD BANKCLIA [id number] [address] ABD/PELVIS WO CONon 07-06 CT [...] TSE Date: 2022-07-06 13:19 Normal [facility] PTH INTACTon 06-12-2022 PTH, Intact 38 pg/mL Normal 15-65 [facility] Comment on above: Performed By: #### P T #### [facility] [address] [place] [address] Dr. Hugh Landis FERRITINon 06-11-2022 Ferritin [Mass/Vol] 96.0 ng/mL Normal 26.0-388.0 [facility] Comment on above: Performed By: #### P T #### [facility] [address] [place] [address] Dr. Hugh Landis HEMOGRAM AND PLATELon 2022 Hematocrit (Bld) [Volume fraction] 39.1 % Critically low 42.0-54.0 [facility] Comment on above: Performed By: #### H H #### [facility] [address] [place] [address] Dr. Hugh Landis Hemoglobin (Bld) [Mass/Vol] 13.3 g/dL Critically low 14.0-18.0 [facility] Comment on above: Performed By: #### H H #### [facility] [address] [place] [address] Dr. Hugh Landis MCH (RBC) [Entitic mass] 30.5 pg Normal 25.9-34.0 [facility] Comment on above: Performed By: #### H H #### [facility] [address] [place] [address] Dr. Hugh Landis MCHC (RBC) [Mass/Vol] 34.0 g/dL Normal 29.9-35.2 [facility] Comment on above: Performed By: #### H H #### [facility] [address] [place] [address] Dr. Hugh Landis MCV (RBC) [Entitic vol] 89.7 fL Normal 80.0-94.0 [facility] Comment on above: Performed By: #### H H #### [facility] [address] [place] [address] Dr. Hugh Landis PLT 230 103/ul Normal 150-450 [facility] Comment on above: Performed By: #### H H #### [facility] [address] [address] [address] Hugh Landis RBC 4.36 106/ul Critically low 4.70-6.10 [facility] Comment on above: Performed By: #### H H #### [facility] [address] [address] [address] Hugh Landis WBC 4.8 103/ul Normal 4.0-11.0 [facility] Comment on above: Performed By: #### H H #### [facility] [address] [place] [address] Dr. Hugh Landis IRON AND TIBCon 06-11-2022 % SATURATION 55.0 % Normal [facility] Comment on above: Performed By: #### P T #### [facility] [address] [place] [address] Dr. Hugh Landis Iron [Mass/Vol] 137.0 ug/dL Normal 65.0-175.0 [facility] Comment on above: Performed By: #### P T #### [facility] [address] [place] [address] Dr. Hugh Landis TIBC DIRECT 249.0 ug/dL Critically low 250.0-450.0 [facility] Comment on above: Performed By: #### P T #### [facility] [address] [place] [address] Dr. Hugh Landis MAGNESIUMon 06-11-2022 Magnesium [Mass/Vol] 1.9 mg/dL Normal 1.8-2.4 [facility] Comment on above: Performed By: #### P TT #### [facility] [address] [address] [address] Hugh Landis RENAL FUNCTION PANELon 06-11 Albumin [Mass/Vol] 3.5 g/dL Normal 3.4-5.0 [facility] Comment on above: Performed By: #### P TT #### [facility] [address] [place] [address] Dr. Hugh Landis Calcium [Mass/Vol] 9.5 mg/dL Normal 8.5-10.1 [facility] Comment on above: Performed By: #### P TT #### [facility] [address] [place] [address] Dr. Hugh Landis Chloride [Moles/Vol] 107 mmol/L Normal 98-107 [facility] Comment on above: Performed By: #### P TT #### [facility] [address] [place] [address] Dr. Hugh Landis CO2 [Moles/Vol] 30.9 mmol/L Normal 21.0-32.0 [facility] Comment on above: Performed By: #### P TT #### [facility] [address] [place] [address] Dr. Hugh Landis Creatinine [Mass/Vol] 1.41 mg/dL Critically high 0.70-1.30 [facility] Comment on above: Performed By: #### P TT #### [facility] [address] [place] [address] Dr. Hugh Landis EGFR-AF TURKMEN >60 Normal >=60 [facility] Comment on above: Performed By: #### P TT #### [facility] [address] [place] [address] Dr. Hugh Landis EGFR-NON AF TURKMEN 52 mL/min/1.73m2 Critically low >=60 [facility] Comment on above: Performed By: #### P TT #### [facility] [address] [place] [address] Dr. Hugh Landis Glucose [Mass/Vol] 118 mg/dL Critically high 74-106 [facility] Comment on above: Performed By: #### P TT #### [facility] [address] [address] [address] Hugh Landis Phosphate [Mass/Vol] 3.0 mg/dL Normal 2.6-4.7 [facility] Comment on above: Performed By: #### P TT #### [facility] [address] [address] [address] Hugh Landis Potassium [Moles/Vol] 3.9 mmol/L Normal 3.5-5.1 [facility] Comment on above: Performed By: #### P TT #### [facility] [address] [place] [address] Dr. Hugh Landis Sodium [Moles/Vol] 143 mmol/L Normal 136-145 [facility] Comment on above: Performed By: #### P TT #### [facility] [address] [place] [address] Dr. Hugh Landis Urea nitrogen [Mass/Vol] 19.0 mg/dL Critically high 7.0-18.0 [facility] Comment on above: Performed By: #### P TT #### [facility] [address] [place] [address] Dr. Hugh Lnadis UA RANDOM W/MICROSCOPICon BACTERIA NONE SEEN Normal NONE SEEN [facility] Comment on above: Performed By: #### P T #### [facility] [address] [place] [address] Dr. Hugh Landis Bilirubin Ql (U) Negative Normal NEGATIVE [facility] Comment on above: Performed By: #### P T #### [facility] [address] [place] [address] Dr. Hugh Landis CAST NONE SEEN Normal NONE SEEN [facility] Comment on above: Performed By: #### P T #### [facility] [address] [place] [address] Dr. Hugh Landis Clarity (U) CLEAR Normal CLEAR [facility] Comment on above: Performed By: #### P T #### [facility] [address] [place] [address] Dr. Hugh Landis Color (U) YELLOW Normal YELLOW [facility] Comment on above: Performed By: #### P T #### [facility] [address] [place] [address] Dr. Hugh Landis Crystals LM Nom (Urine sed) NONE SEEN Normal NONE SEEN [facility] Comment on above: Performed By: #### P T #### [facility] [address] [place] [address] Dr. Hugh Landis Epithelial cells LM Ql (Urine sed) FEW Abnormal NONE SEEN /RARE [facility] Comment on above: Performed By: #### P T #### [facility] [address] [place] [address] Dr. Hugh Landis Glucose Ql (U) Negative Normal NEGATIVE [facility] Comment on above: Performed By: #### P T #### [facility] [address] [place] [address] Dr. Hugh Landis Hemoglobin Ql (U) Negative Normal NEGATIVE [facility] Comment on above: Performed By: #### P T #### [facility] [address] [place] [address] Dr. Hugh Landis Ketones Ql (U) TRACE Abnormal NEGATIVE [facility] Comment on above: Performed By: #### P T #### [facility] [address] [place] [address] Dr. Hugh Landis LEUKOCYTES Negative Normal NEGATIVE [facility] Comment on above: Performed By: #### P T #### [facility] [address] [place] [address] Dr. Hugh Landis MUCOUS MODERATE Abnormal NONE SEEN [facility] Comment on above: Performed By: #### P T #### [facility] [address] [place] [address] Dr. Hugh Landis Nitrite Ql (U) Negative Normal NEGATIVE [facility] Comment on above: Performed By: #### P T #### [facility] [address] [place] [address] Dr. Hugh Landis pH (U) 5.0 [pH] Normal 5-9 [facility] Comment on above: Performed By: #### P T #### [facility] [address] [place] [address] Dr. Hugh Landis RBC NONE SEEN Abnormal 0-2 [facility] Comment on above: Performed By: #### P T #### [facility] [address] [place] [address] Dr. Hugh Landis SPEC GRAVITY 1.025 Normal 1.005-<=1.02 5 [facility] Comment on above: Performed By: #### P T #### [facility] [address] [place] [address] Dr. Hugh Landis UA PROTEIN TRACE Normal NEGATIVE/ TRACE [facility] Comment on above: Performed By: #### P T #### [facility] [address] [place] [address] Dr. Hugh Landis Urobilinogen Qn (U) 0.2 {Dahiana'U}/dL Normal 0.2 - 1. 0 [facility] Comment on above: Performed By: #### P T #### [facility] [address] [place] [address] Dr. Hugh Landis WBC NONE SEEN Normal NONE SEEN [facility] Comment on above: Performed By: #### P T #### [facility] [address] [place] [address] Dr. Hugh Landis URIC ACID SERUMon 06-11-2022 Urate [Mass/Vol] 7.5 mg/dL Critically high 3.5-7.2 [facility] Comment on above: Performed By: #### P TT #### [facility] [address] [place] [address] Dr. Hugh Landis VITAMIN D 25 OHon 06-11-2022 VIT D 25-OH 35.0 ng/mL Normal [facility] Comment on above: Performed By: #### P T #### [facility] [address] [place] [address] Dr. Hugh Landis VIT D RANGES SEE BELOW Normal [facility] Comment on above: Result Comment: <20 ng/mL Vit D deficient 20 - <30 ng/mL Vit D insufficient 30 - 100 ng/mL Vit D sufficient >100 ng/mL Potential Toxicity Performed By: #### P T #### [facility] [address] [place] [address] Dr. Hugh Landis PROTIMEon 03-15-2022 INR Coag (PPP) [Relative time] 1.11 {INR} Normal [facility] Comment on above: Performed By: #### P T #### [facility] [address] [place] [address] Dr. Hugh Landis INR GUIDELINES SEE BELOW Normal [facility] Comment on above: Result Comment: VIC RED INR: 2.0 - 3.0 CONDITIONS NOT LISTED BELOW 2.5 - 3.5 FOR PROSTHETIC HEART VALVE REPLACEMENT 2.5 - 3.5 RECURRENT THROMBOSIS Performed By: #### P T #### [facility] [address] [place] [address] Dr. Hugh Landis PT Coag (PPP) [Time] 11.7 s Critically high 9.0-11.6 [facility] Comment on above: Performed By: #### P T #### [facility] [address] [place] [address] Dr. Hugh Landis UA (CLEAN/CATCH) AD SETTER/MICRO I F IND.on 03-15-2022 Bilirubin Ql (U) Negative Normal NEGATIVE [facility] Comment on above: Performed By: #### P TT #### [facility] [address] [place] [address] Dr. Hugh Landis Clarity (U) CLEAR Normal CLEAR [facility] Comment on above: Performed By: #### P TT #### [facility] [address] [place] [address] Dr. Hugh Landis Color (U) YELLOW Normal YELLOW [facility] Comment on above: Performed By: #### P TT #### [facility] [address] [place] [address] Dr. Hugh Landis Glucose Ql (U) Negative Normal NEGATIVE [facility] Comment on above: Performed By: #### P TT #### [facility] [address] [place] [address] Dr. Hugh Landis Hemoglobin Ql (U) SMALL Abnormal NEGATIVE [facility] Comment on above: Performed By: #### P TT #### [facility] [address] [place] [address] Dr. Hugh Landis Ketones Ql (U) Negative Normal NEGATIVE [facility] Comment on above: Performed By: #### P TT #### [facility] [address] [place] [address] Dr. Hugh Landis LEUKOCYTES Negative Normal NEGATIVE [facility] Comment on above: Performed By: #### P TT #### [facility] [address] [address] [address] Hugh Landis Nitrite Ql (U) Negative Normal NEGATIVE [facility] Comment on above: Performed By: #### P TT #### [facility] [address] [place] [address] Dr. Hugh Landis pH (U) 5.5 [pH] Normal 5-9 [facility] Comment on above: Performed By: #### P TT #### [facility] [address] [place] [address] Dr. Hugh Landis SPEC GRAVITY 1.025 Normal 1.005-<=1.02 5 [facility] Comment on above: Performed By: #### P TT #### [facility] [address] [place] [address] Dr. Hugh Landis UA PROTEIN Negative Normal NEGATIVE/ TRACE [facility] Comment on above: Performed By: #### P TT #### [facility] [address] [place] [address] Dr. Hugh Landis UR MICRO IND INDICATED Normal [facility] Comment on above: Performed By: #### P TT #### [facility] [address] [place] [address] Dr. Hugh Landis Urobilinogen Qn (U) 0.2 {Dahiana'U}/dL Normal 0.2 - 1. 0 [facility] Comment on above: Performed By: #### P TT #### [facility] [address] [place] [address] Dr. Hugh Landis URINE MICROSCOPIC ONLYon BACTERIA TRACE Abnormal NONE SEEN [facility] Comment on above: Performed By: #### P TT #### [facility] [address] [place] [address] Dr. Hugh Landis Bacteria identified Cx Nom (U) NOT INDICATED Normal [facility] Comment on above: Performed By: #### P TT #### [facility] [address] [place] [address] Dr. Hugh Landis CAST NONE SEEN Normal NONE SEEN [facility] Comment on above: Performed By: #### P TT #### [facility] [address] [place] [address] Dr. Hugh Landis Crystals LM Nom (Urine sed) NONE SEEN Normal NONE SEEN [facility] Comment on above: Performed By: #### P TT #### [facility] [address] [place] [address] Dr. Hugh Landis Epithelial cells LM Ql (Urine sed) RARE Normal NONE SEEN /RARE [facility] Comment on above: Performed By: #### P TT #### [facility] [address] [place] [address] Dr. Hugh Landis MUCOUS NONE SEEN Normal NONE SEEN [facility] Comment on above: Performed By: #### P TT #### [facility] [address] [place] [address] Dr. Hugh Landis RBC 0-2 Normal 0-2 [facility] Comment on above: Performed By: #### P TT #### [facility] [address] [place] [address] Dr. Hugh Landis WBC 0-2 Abnormal NONE SEEN [facility] Comment on above: Performed By: #### P TT #### [facility] [address] [place] [address] Dr. Hugh Landis MRSA NARES #1on 03-08-2022 MRSA NARES #1 Culture Observations : NO GROWTH OF MRSA AT 48 HOURS. Normal [facility] Comment on above: Performed By: #### B MP #### [facility] [address] [place] [address] Dr. Hugh Landis PROF CHEM 8 (BAS METB)on Anion gap [Moles/Vol] 9.9 mmol/L Normal [facility] Comment on above: Performed By: #### C MP, LIPID, TSH #### [facility] [address] [place] [address] Dr. Hugh Landis Calcium [Mass/Vol] 9.4 mg/dL Normal 8.5-10.1 [facility] Comment on above: Performed By: #### C MP, LIPID, TSH #### [facility] [address] [address] [address] Hugh Landis Chloride [Moles/Vol] 103 mmol/L Normal 98-107 [facility] Comment on above: Performed By: #### C MP, LIPID, TSH #### [facility] [address] [place] [address] Dr. Hugh Landis CO2 [Moles/Vol] 31.6 mmol/L Normal 21.0-32.0 [facility] Comment on above: Performed By: #### C MP, LIPID, TSH #### [facility] [address] [place] [address] Dr. Hugh Landis Creatinine [Mass/Vol] 1.25 mg/dL Normal 0.70-1.30 [facility] Comment on above: Performed By: #### C MP, LIPID, TSH #### [facility] [address] [place] [address] Dr. Hugh Landis EGFR-AF TURKMEN >60 Normal >=60 [facility] Comment on above: Performed By: #### C MP, LIPID, TSH #### [facility] [address] [place] [address] Dr. Hugh Landis EGFR-NON AF TURKMEN 59 mL/min/1.73m2 Critically low >=60 [facility] Comment on above: Performed By: #### C MP, LIPID, TSH #### [facility] [address] [place] [address] Dr. Hugh Landis Glucose [Mass/Vol] 110 mg/dL Critically high 74-106 [facility] Comment on above: Performed By: #### C MP, LIPID, TSH #### [facility] [address] [place] [address] Dr. Hugh Landis Potassium [Moles/Vol] 3.5 mmol/L Normal 3.5-5.1 [facility] Comment on above: Performed By: #### C MP, LIPID, TSH #### [facility] [address] [place] [address] Dr. Hugh Landis Sodium [Moles/Vol] 141 mmol/L Normal 136-145 [facility] Comment on above: Performed By: #### C MP, LIPID, TSH #### [facility] [address] [place] [address] Dr. Hugh Landis Urea nitrogen [Mass/Vol] 27.0 mg/dL Critically high 7.0-18.0 [facility] Comment on above: Performed By: #### C MP, LIPID, TSH #### [facility] [address] [address] [address] Hugh Landis Urea nitrogen/Creatinine [Mass ratio] 21.6 mg/mg Normal [facility] Comment on above: Performed By: #### C MP, LIPID, TSH #### [facility] [address] [place] [address] Dr. Hugh Landis PTTon 03-08-2022 aPTT Coag (Bld) [Time] 27.0 s Normal 22.3-36.2 [facility] Comment on above: Performed By: #### P TT #### [facility] [address] [place] [address] Dr. Hugh Landis INSULINon 01-25-2022 Insulin 11.1 uIU/mL Normal 2.6-24.9 [facility] Comment on above: Performed By: #### U TOMAS, TSH, CMP, LIPID, T7 #### [facility] [address] [place] [address] Dr. Hugh Landis CBC AUTO DIFFon 01-24-2022 BASO # 0.1 103/ul Normal 0.0-0.1 [facility] Comment on above: Performed By: #### C MP, LIPID, TSH #### [facility] [address] [place] [address] Dr. Hugh Landis Basophils/100 WBC (Bld) 1.3 % Normal 0.2-2.0 [facility] Comment on above: Performed By: #### C MP, LIPID, TSH #### [facility] [address] [place] [address] Dr. Hugh Landis EO # 0.2 103/ul Normal 0.0-0.7 [facility] Comment on above: Performed By: #### C MP, LIPID, TSH #### [facility] [address] [place] [address] Dr. Hugh Landis Eosinophils/100 WBC (Bld) 4.7 % Normal 0.9-7.0 [facility] Comment on above: Performed By: #### C MP, LIPID, TSH #### [facility] [address] [place] [address] Dr. Hugh Landis Erythrocyte distribution width (RBC) [Ratio] 12.6 % Normal 11.0-15.0 [facility] Comment on above: Performed By: #### C MP, LIPID, TSH #### [facility] [address] [place] [address] Dr. Hugh Landis Hematocrit (Bld) [Volume fraction] 39.1 % Critically low 42.0-54.0 [facility] Comment on above: Performed By: #### C MP, LIPID, TSH #### [facility] [address] [place] [address] Dr. Hugh Landis Hemoglobin (Bld) [Mass/Vol] 12.4 g/dL Critically low 14.0-18.0 [facility] Comment on above: Performed By: #### C MP, LIPID, TSH #### [facility] [address] [place] [address] Dr. Hugh Landis IG # 0.01 10e3/ul Normal 0.00-0.03 [facility] Comment on above: Performed By: #### C MP, LIPID, TSH #### [facility] [address] [place] [address] Dr. Hugh Landis IG % 0.2 % Normal 0.0-0.5 [facility] Comment on above: Performed By: #### C MP, LIPID, TSH #### [facility] [address] [address] [address] Hugh Landis LYMPH # 0.9 103/ul Critically low 1.2-3.8 [facility] Comment on above: Performed By: #### C MP, LIPID, TSH #### [facility] [address] [address] [address] Hugh Landis Lymphocytes/100 WBC (Bld) 19.4 % Critically low 20.5-60.0 [facility] Comment on above: Performed By: #### C MP, LIPID, TSH #### [facility] [address] [address] [address] Hugh Landis MANUAL DIFF REQ NO Normal [facility] Comment on above: Performed By: #### C MP, LIPID, TSH #### [facility] [address] [place] [address] Dr. Hugh Landis MCH (RBC) [Entitic mass] 29.2 pg Normal 25.9-34.0 [facility] Comment on above: Performed By: #### C MP, LIPID, TSH #### [facility] [address] [place] [address] Dr. Hugh Landis MCHC (RBC) [Mass/Vol] 31.7 g/dL Normal 29.9-35.2 [facility] Comment on above: Performed By: #### C MP, LIPID, TSH #### [facility] [address] [address] [address] Hugh Landis MCV (RBC) [Entitic vol] 92.0 fL Normal 80.0-94.0 [facility] Comment on above: Performed By: #### C MP, LIPID, TSH #### [facility] [address] [address] [address] Hugh Landis MONO # 0.5 103/ul Normal 0.3-0.8 [facility] Comment on above: Performed By: #### C MP, LIPID, TSH #### [facility] [address] [address] [address] Hugh Landis Monocytes/100 WBC (Bld) 9.6 % Normal 1.7-12.0 [facility] Comment on above: Performed By: #### C MP, LIPID, TSH #### [facility] [address] [address] [address] Hugh Landis NEUT # 3.0 103/ul Normal 1.4-6.5 [facility] Comment on above: Performed By: #### C MP, LIPID, TSH #### [facility] [address] [place] [address] Dr. Hugh Landis Neutrophils/100 WBC (Bld) 64.8 % Normal 43.0-75.0 [facility] Comment on above: Performed By: #### C MP, LIPID, TSH #### [facility] [address] [place] [address] Dr. Hugh Landis Platelet mean volume (Bld) [Entitic vol] 9.4 fL Critically low 9.5-13.5 [facility] Comment on above: Performed By: #### C MP, LIPID, TSH #### [facility] [address] [place] [address] Dr. Hugh Landis PLT 232 103/ul Normal 150-450 [facility] Comment on above: Performed By: #### C MP, LIPID, TSH #### [facility] [address] [place] [address] Dr. Hugh Landis RBC 4.25 106/ul Critically low 4.70-6.10 [facility] Comment on above: Performed By: #### C MP, LIPID, TSH #### [facility] [address] [place] [address] Dr. Hugh Landis WBC 4.7 103/ul Normal 4.0-11.0 [facility] Comment on above: Performed By: #### C MP, LIPID, TSH #### [facility] [address] [place] [address] Dr. Hugh Landis FREE THYROXINE INDEX T7on -2021 FTI 2.65 Normal 1.30-4.50 [facility] Comment on above: Performed By: #### B MP #### [facility] [address] [place] [address] Dr. Hugh Landis T3U 34.0 % Normal 33.0-40.0 [facility] Comment on above: Performed By: #### B MP #### [facility] [address] [address] [address] Hugh Landis T4 [Mass/Vol] 7.80 ug/dL Normal 4.50-12.10 [facility] Comment on above: Performed By: #### B MP #### [facility] [address] [address] [address] Hugh Landis GLYCOHEMOGLOBIN A1Con 2021 ADA RECOMMENDATION SEE BELOW Normal [facility] Comment on above: Result Comment: ADA RECOMMENDED LIMIT 4.0 - 6.0 ADA THERAPEUTIC TARGET < 7.0 ACTION SUGGESTED > 7.0 Performed By: #### C MP, LIPID, TSH #### [facility] [address] [place] [address] Dr. Hugh Landis Glucose [Mass/Vol] 123 mg/dL Normal [facility] Comment on above: Performed By: #### C MP, LIPID, TSH #### [facility] [address] [place] [address] Dr. Hugh Landis HbA1c (Bld) [Mass fraction] 5.9 % Normal 4.5-6.2 [facility] Comment on above: Performed By: #### C MP, LIPID, TSH #### [facility] [address] [place] [address] Dr. Hugh Landis LIPID PROFILEon 01-24-2022 CHOL-HDL RATIO NORM SEE BELOW Normal [facility] Comment on above: Result Comment: 3.3 - 4.4 LOW RISK 4.4 - 7.1 AVERAGE RISK 7.1 - 11.0 MODERATE RISK >11.0 HIGH RISK Performed By: #### U TOMAS, TSH, CMP, LIPID, T7 #### [facility] [address] [place] [address] Dr. Hugh Landis Cholesterol [Mass/Vol] 179 mg/dL Normal <=200 [facility] [facility] Comment on above: Performed By: #### U TOMAS, TSH, CMP, LIPID, T7 #### [facility] [address] [place] [address] Dr. Hugh Landis Cholesterol in HDL [Mass/Vol] 46 mg/dL Normal 40-60 [facility] Comment on above: Performed By: #### U TOMAS, TSH, CMP, LIPID, T7 #### [facility] [address] [address] [address] Hugh Landis Cholesterol in LDL [Mass/Vol] 100.4 mg/dL Normal [facility] Comment on above: Performed By: #### U TOMAS, TSH, CMP, LIPID, T7 #### [facility] [address] [address] [address] Hugh Landis Cholesterol.total/Ch olesterol in HDL [Mass ratio] 3.9 {ratio} Normal [facility] Comment on above: Performed By: #### U TOMAS, TSH, CMP, LIPID, T7 #### [facility] [address] [address] [address] Hugh Landis HDL NORMAL > or = 60 mg/dl - LO W CARDIOVASCULAR RISK <40 mg/dl - HIGH CARDIOVASCULAR RISK Normal [facility] Comment on above: Performed By: #### U TOMAS, TSH, CMP, LIPID, T7 #### [facility] [address] [address] [address] Hugh Landis LDL CALC NORMAL SEE BELOW Normal [facility] Comment on above: Result Comment: <100 mg/dl OPTIMAL 100 - 129 mg/dl NEAR OR ABOVE OPTIMAL 130 - 159 mg/dl BORDERLINE HIGH 160 - 189 mg/dl HIGH >190 mg/dl VERY HIGH Performed By: #### U TOMAS, TSH, CMP, LIPID, T7 #### [facility] [address] [address] [address] Hugh Landis Triglyceride [Mass/Vol] 163 mg/dL Critically high <=150 [facility] Comment on above: Performed By: #### U TOMAS, TSH, CMP, LIPID, T7 #### [facility] [address] [address] [address] Hugh Landis VLDL CALC 32.6 mg/dL Normal [facility] Comment on above: Performed By: #### U TOMAS, TSH, CMP, LIPID, T7 #### [facility] [address] [place] [address] Dr. Hugh Landis PROF 14(COMP METB)on 022 Albumin [Mass/Vol] 3.6 g/dL Normal 3.4-5.0 [facility] Comment on above: Performed By: #### U TOMAS, TSH, CMP, LIPID, T7 #### [facility] [address] [place] [address] Dr. Hugh Landis Albumin/Globulin [Mass ratio] 0.9 {ratio} Normal [facility] Comment on above: Performed By: #### U TOMAS, TSH, CMP, LIPID, T7 #### [facility] [address] [place] [address] Dr. Hugh Landis ALP [Catalytic activity/Vol] 81 U/L Normal 46-116 [facility] Comment on above: Performed By: #### U TOMAS, TSH, CMP, LIPID, T7 #### [facility] [address] [place] [address] Dr. Hugh Landis ALT [Catalytic activity/Vol] 19 U/L Normal 16-63 [facility] Comment on above: Performed By: #### U TOMAS, TSH, CMP, LIPID, T7 #### [facility] [address] [place] [address] Dr. Hugh Landis Anion gap [Moles/Vol] 13.4 mmol/L Normal [facility] Comment on above: Performed By: #### U TOMAS, TSH, CMP, LIPID, T7 #### [facility] [address] [place] [address] Dr. Hugh Landis AST [Catalytic activity/Vol] 16 U/L Normal 15-37 [facility] Comment on above: Performed By: #### U TOMAS, TSH, CMP, LIPID, T7 #### [facility] [address] [place] [address] Dr. Hugh Landis Bilirubin [Mass/Vol] 0.5 mg/dL Normal 0.2-1.0 [facility] Comment on above: Performed By: #### U TOMAS, TSH, CMP, LIPID, T7 #### [facility] [address] [place] [address] Dr. Hugh Landis Calcium [Mass/Vol] 9.7 mg/dL Normal 8.5-10.1 [facility] Comment on above: Performed By: #### U TOMAS, TSH, CMP, LIPID, T7 #### [facility] [address] [address] [address] Hugh Landis Chloride [Moles/Vol] 105 mmol/L Normal 98-107 [facility] Comment on above: Performed By: #### U TOMAS, TSH, CMP, LIPID, T7 #### [facility] [address] [address] [address] Hugh Landis CO2 [Moles/Vol] 27.4 mmol/L Normal 21.0-32.0 [facility] Comment on above: Performed By: #### U TOMAS, TSH, CMP, LIPID, T7 #### [facility] [address] [address] [address] Hugh Landis Creatinine [Mass/Vol] 1.37 mg/dL Critically high 0.70-1.30 [facility] Comment on above: Performed By: #### U TOMAS, TSH, CMP, LIPID, T7 #### [facility] [address] [address] [address] Hugh Landis EGFR-AF TURKMEN >60 Normal >=60 [facility] Comment on above: Performed By: #### U TOMAS, TSH, CMP, LIPID, T7 #### [facility] [address] [address] [address] Hugh Landis EGFR-NON AF TURKMEN 53 mL/min/1.73m2 Critically low >=60 [facility] Comment on above: Performed By: #### U TOMAS, TSH, CMP, LIPID, T7 #### [facility] [address] [address] [address] Hugh Landis Globulin (S) [Mass/Vol] 4.0 g/dL Normal [facility] Comment on above: Performed By: #### U TOMAS, TSH, CMP, LIPID, T7 #### [facility] [address] [address] [address] Hugh Landis Glucose [Mass/Vol] 113 mg/dL Critically high 74-106 [facility] Comment on above: Performed By: #### U TOMAS, TSH, CMP, LIPID, T7 #### [facility] [address] [address] [address] Hugh Landis Potassium [Moles/Vol] 3.8 mmol/L Normal 3.5-5.1 [facility] Comment on above: Performed By: #### U TOMAS, TSH, CMP, LIPID, T7 #### [facility] [address] [address] [address] Hugh Landis Protein [Mass/Vol] 7.6 g/dL Normal 6.4-8.2 [facility] Comment on above: Performed By: #### U TOMAS, TSH, CMP, LIPID, T7 #### [facility] [address] [place] [address] Dr. Hugh Landis Sodium [Moles/Vol] 142 mmol/L Normal 136-145 [facility] Comment on above: Performed By: #### U TOMAS, TSH, CMP, LIPID, T7 #### [facility] [address] [place] [address] Dr. Hugh Landis Urea nitrogen [Mass/Vol] 21.0 mg/dL Critically high 7.0-18.0 [facility] Comment on above: Performed By: #### U TOMAS, TSH, CMP, LIPID, T7 #### [facility] [address] [place] [address] Dr. Hugh Landis Urea nitrogen/Creatinine [Mass ratio] 15.3 mg/mg Normal [facility] Comment on above: Performed By: #### U TOMAS, TSH, CMP, LIPID, T7 #### [facility] [address] [place] [address] Dr. Hugh Landis TSHon 01-24-2022 TSH 0.663 uIU/mL Normal 0.358-3.740 [facility] Comment on above: Performed By: #### U TOMAS, TSH, CMP, LIPID, T7 #### [facility] [address] [place] [address] Dr. Hugh Landis URIC ACID SERUMon 01-24-2022 Urate [Mass/Vol] 6.9 mg/dL Normal 3.5-7.2 [facility] Comment on above: Performed By: #### B MP #### [facility] [address] [place] [address] Dr. Hugh Landis VITAMIN D 25 OHon 01-24-2022 VIT D 25-OH 37.0 ng/mL Normal [facility] Comment on above: Performed By: #### P TT #### [facility] [address] [place] [address] Dr. Hugh Landis VIT D RANGES SEE BELOW Normal [facility] Comment on above: Result Comment: <20 ng/mL Vit D deficient 20 - <30 ng/mL Vit D insufficient 30 - 100 ng/mL Vit D sufficient >100 ng/mL Potential Toxicity Performed By: #### P TT #### [facility] [address] [place] [address] Dr. Hugh Landis US KIDNEYSon 12-21-2021 US [...] TSE Date: 2021-12-21 17:34 Normal [facility] XR ABD FLAT UP_PA Barrett 12-21 [...] LARIOS Date: 2021-12-21 18:13 Normal [facility] Urine culture routineOrdered By: Estephanie Lowry on 12-17-2021 Bacteria identified Cx Nom (U) No Growth 2 Days [facility] Chlamydia trachomatis DNA [P resence] in Specimen by MUKUL with probe detectionOrdered By: Estephanie Lowry on 12-15-2021 C. trachomatis DNA MUKUL+probe Ql (Unsp spec) Negative Negative [facility] Chlamydia/GC/Trich NAAon Chlamydia Trachomotis, MUKUL Negative Normal Negative [facility] Comment on above: Order Comment: Reaso n for Exam Dysuria Performed By: #### G CCHLAMTRI #### [facility] , #### CUU #### [facility] [address] Neisseria Gonorrhoeae, MUKUL Negative Normal Negative [facility] Comment on above: Order Comment: Reaso n for Exam Dysuria Performed By: #### G CCHLAMTRI #### [facility] , #### CUU #### [facility] [address] [place] [address] [place] Trichomonas MUKUL Negative Normal Negative [facility] Comment on above: Order Comment: Reaso n for Exam Dysuria Result Comment: Perf ormed at: =G - [facility] [address] [id number] Physician Obstetrician: Shoshana Camargo MD, Phone: [phone] PERFORMED BY: [address] [id number] PATHOLOGIST RIGGER CHIEF SABRA SAUNDERS M.D. Performed By: #### G CCHLAMTRI #### [facility] , #### CUU #### [facility] [address] [id number] [facility] Chlamydia/GC/Trich MUKUL Negative Negative [employer] Other Neisseria gonorrhoeae DNA [P resence] in Specimen by MUKUL with probe detectionOrdered By: Estephanie Lowry on 12-15-2021 N. gonorrhoeae DNA MUKUL+probe Ql (Unsp spec) Negative Negative [facility] Trichomonas vaginalis DNA [P resence] in Specimen by MUKUL with probe detectionOrdered By: Estephanie Lowry on 12-15-2021 T. vaginalis DNA MUKUL+probe Ql (Unsp spec) Negative Negative [facility] Comment on above: Performed at: =[address] [id number] Director: Shoshana Camargo MD, Phone: [phone] Urinalysis - AUTOMATEDon Appearance (U) clear [employer] Other Bilirubin Ql (U) Negative [employer] Other Color (U) orange [employer] Other Glucose Ql (U) Negative [employer] Other Hemoglobin Ql (U) moderate [employer] Other Ketones Ql (U) Negative [employer] Other Leukocyte esterase Test strip Ql (U) Negative [employer] Other Nitrite Ql (U) Positive [employer] Other pH (U) 5.5 [pH] [employer] Other Protein Ql (U) Negative [employer] Other Specific gravity (U) [Rel density] 1.015 [employer] Other Urobilinogen (U) [Mass/Vol] 0.2 mg/dL [employer] Other Urinalysis - AUTOMATED [employer] Other Urine Cultureon 12-15-2021 Bacteria identified Cx Nom (U) Reason for Exam Dysuria Urine No Growth 2 Days PERFORMED BY: [place] [id number] PATHOLOGIST RIGGER CHIEF SABRA SAUNDERS M.D. Normal [facility] Comment on above: Performed By: #### G CCHLAMTRI #### [facility] , #### CUU #### [address] Bacteria identified Cx Nom (U) [employer] [facility] [employer] Other CULTURE URINEon 11-24-2021 CULTURE URINE Culture Observations : NO GROWTH. Normal [facility] Comment on above: Performed By: #### B MP #### [facility] [address] [address] [address] Hugh Landis PROTEIN ELECTROPHERESIS URIN E RANDOMon 11-17-2021 Albumin, U 33.4 % Normal [facility] Comment on above: Performed By: #### C MP, LIPID, TSH #### [facility] [address] [address] [address] Hugh Landis Alpha-1 Globulin U 4.7 % Normal [facility] Comment on above: Performed By: #### C MP, LIPID, TSH #### [facility] [address] [address] [address] Hugh Landis Alpha-2 Glubulin U 18.6 % Normal [facility] Comment on above: Performed By: #### C MP, LIPID, TSH #### [facility] [address] [address] [address] Hugh Landis Beta Globulin, U 19.9 % Normal [facility] Comment on above: Performed By: #### C MP, LIPID, TSH #### [facility] [address] [address] [address] Hugh Landis Gamma Globulin U 23.4 % Normal [facility] Comment on above: Performed By: #### C MP, LIPID, TSH #### [facility] [address] [address] [address] Hugh Landis M-Tariq, % Not Observed Normal Not Observed [facility] Comment on above: Performed By: #### C MP, LIPID, TSH #### [facility] [address] [address] [address] Hugh Landis PDF . Normal [facility] Comment on above: Performed By: #### C MP, LIPID, TSH #### [facility] [address] [address] [address] Huhg Landis Please note: Comment Normal [facility] Comment on above: Result Comment: Prot ein electrophoresis scan will follow via computer, mail, or dimensional integration engineer delivery. Performed By: #### C MP, LIPID, TSH #### [facility] [address] [address] [address] Hugh Landis Protein (U) [Mass/Vol] 4.9 mg/dL Normal Not Estab. [facility] Comment on above: Performed By: #### C MP, LIPID, TSH #### [facility] [address] [address] [address] Hugh Landis IMMUNOFIXATION(PRINCE),PROTEIN ELEC(PE),FREon 11-16-2021 Albumin [Mass/Vol] 3.4 g/dL Normal 2.9-4.4 [facility] Comment on above: Performed By: #### C MP, LIPID, TSH #### [facility] [address] [address] [address] Hugh Landis Albumin/Globulin [Mass ratio] 1.0 {ratio} Normal 0.7-1.7 [facility] Comment on above: Performed By: #### C MP, LIPID, TSH #### [facility] [address] [address] [address] Hugh Landis Zugum-3-Dcfyulhu 0.2 g/dL Normal 0.0-0.4 [facility] Comment on above: Performed By: #### C MP, LIPID, TSH #### [facility] [address] [place] [address] Dr. Hugh Landis Wkkzk-8-Byuvlnbh 1.1 g/dL Critically high 0.4-1.0 [facility] Comment on above: Performed By: #### C MP, LIPID, TSH #### [facility] [address] [place] [address] Dr. Hugh Landis Beta Globulin 1.0 g/dL Normal 0.7-1.3 [facility] Comment on above: Performed By: #### C MP, LIPID, TSH #### [facility] [address] [place] [address] Dr. Hugh Landis Free Spring Mount Lt Chains,S 35.7 mg/L Critically high 3.3-19.4 [facility] Comment on above: Performed By: #### C MP, LIPID, TSH #### [facility] [address] [place] [address] Dr. Hugh Landis Free Lambda Lt Chains,S 21.1 mg/L Normal 5.7-26.3 [facility] Comment on above: Performed By: #### C MP, LIPID, TSH #### [facility] [address] [place] [address] Dr. Hugh Landis Gamma Globulin 1.2 g/dL Normal 0.4-1.8 [facility] Comment on above: Performed By: #### C MP, LIPID, TSH #### [facility] [address] [place] [address] Dr. Hugh Landis Globulin (S) [Mass/Vol] 3.5 g/dL Normal 2.2-3.9 [facility] Comment on above: Performed By: #### C MP, LIPID, TSH #### [facility] [address] [place] [address] Dr. Hugh Landis Immunofixation Result, Serum Comment Normal [facility] Comment on above: Result Comment: No m onoclonality detected. Performed By: #### C MP, LIPID, TSH #### [facility] [address] [address] [address] Hugh Landis Immunoglobulin A, Qn, Serum 228 mg/dL Normal 90-386 [facility] Comment on above: Performed By: #### C MP, LIPID, TSH #### [facility] [address] [address] [address] Hugh Landis Immunoglobulin G, Qn, Serum 1221 mg/dL Normal 603-1613 [facility] Comment on above: Performed By: #### C MP, LIPID, TSH #### [facility] [address] [address] [address] Hugh Landis Immunoglobulin M, Qn, Serum 79 mg/dL Normal 20-172 [facility] Comment on above: Performed By: #### C MP, LIPID, TSH #### [facility] [address] [place] [address] Dr. Hugh Landis Spring Mount/Lambda Ratio, S 1.69 Critically high 0.26-1.65 [facility] Comment on above: Performed By: #### C MP, LIPID, TSH #### [facility] [address] [address] [address] Hugh Landis M-Tariq Not Observed Normal Not Observed [facility] Comment on above: Performed By: #### C MP, LIPID, TSH #### [facility] [address] [address] [address] Hugh Landis PDF . Normal [facility] Comment on above: Performed By: #### C MP, LIPID, TSH #### [facility] [address] [address] [address] Hugh Landis Please note: Comment Normal [facility] Comment on above: Result Comment: Prot ein electrophoresis scan will follow via computer, mail, or dimensional integration engineer delivery. Performed By: #### C MP, LIPID, TSH #### [facility] [address] [place] [address] Dr. Hugh Landis Protein [Mass/Vol] 6.9 g/dL Normal 6.0-8.5 [facility] Comment on above: Performed By: #### C MP, LIPID, TSH #### [facility] [address] [address] [address] Hugh Landis PROTEIN AND CREA RANDOM UR R ATIOon 11-16-2021 Creatinine, Urine 54.8 mg/dL Normal Not Estab. [facility] Comment on above: Performed By: #### C MP, LIPID, TSH #### [facility] [address] [place] [address] Dr. Hugh Landis Protein (U) [Mass/Vol] 4.1 mg/dL Normal Not Estab. [facility] Comment on above: Performed By: #### C MP, LIPID, TSH #### [facility] [address] [address] [address] Hugh Landis Protein/Creat Ratio 75 mg/g creat Normal 0-200 [facility] Comment on above: Performed By: #### C MP, LIPID, TSH #### [facility] [address] [place] [address] Dr. Hugh Landis PTH INTACTon 11-15-2021 PTH, Intact 39 pg/mL Normal 15-65 [facility] Comment on above: Performed By: #### P T #### [facility] [address] [place] [address] Dr. Hugh Landis UA RANDOM W/MICROSCOPICon BACTERIA NONE SEEN Normal NONE SEEN [facility] Comment on above: Performed By: #### P TT #### [facility] [address] [place] [address] Dr. Hugh Landis Bilirubin Ql (U) Negative Normal NEGATIVE [facility] Comment on above: Performed By: #### P TT #### [facility] [address] [place] [address] Dr. Hugh Landis CAST NONE SEEN Normal NONE SEEN [facility] Comment on above: Performed By: #### P TT #### [facility] [address] [place] [address] Dr. Hugh Landis Clarity (U) CLEAR Normal CLEAR [facility] Comment on above: Performed By: #### P TT #### [facility] [address] [place] [address] Dr. Hugh Landis Color (U) LT. YELLOW Normal YELLOW [facility] Comment on above: Performed By: #### P TT #### [facility] [address] [place] [address] Dr. Hugh Landis Crystals LM Nom (Urine sed) NONE SEEN Normal NONE SEEN [facility] Comment on above: Performed By: #### P TT #### [facility] [address] [place] [address] Dr. Hugh Landis Epithelial cells LM Ql (Urine sed) NONE SEEN Normal NONE SEEN /RARE [facility] Comment on above: Performed By: #### P TT #### [facility] [address] [place] [address] Dr. Hugh Landis Glucose Ql (U) Negative Normal NEGATIVE [facility] Comment on above: Performed By: #### P TT #### [facility] [address] [place] [address] Dr. Hugh Landis Hemoglobin Ql (U) MODERATE Abnormal NEGATIVE [facility] Comment on above: Performed By: #### P TT #### [facility] [address] [place] [address] Dr. Hugh Landis Ketones Ql (U) Negative Normal NEGATIVE [facility] Comment on above: Performed By: #### P TT #### [facility] [address] [place] [address] Dr. Hugh Landis LEUKOCYTES Negative Normal NEGATIVE [facility] Comment on above: Performed By: #### P TT #### [facility] [address] [place] [address] Dr. Hugh Landis MUCOUS NONE SEEN Normal NONE SEEN [facility] Comment on above: Performed By: #### P TT #### [facility] [address] [place] [address] Dr. Hugh Landis Nitrite Ql (U) Negative Normal NEGATIVE [facility] Comment on above: Performed By: #### P TT #### [facility] [address] [place] [address] Dr. Hugh Landis pH (U) 5.5 [pH] Normal 5-9 [facility] Comment on above: Performed By: #### P TT #### [facility] [address] [place] [address] Dr. Hugh Landis RBC 5-10 Abnormal 0-2 [facility] Comment on above: Performed By: #### P TT #### [facility] [address] [place] [address] Dr. Hugh Landis SPEC GRAVITY 1.010 Normal 1.005-<=1.02 5 [facility] Comment on above: Performed By: #### P TT #### [facility] [address] [place] [address] Dr. Hugh Landis UA PROTEIN Negative Normal NEGATIVE/ TRACE [facility] Comment on above: Performed By: #### P TT #### [facility] [address] [place] [address] Dr. Hugh Landis Urobilinogen Qn (U) 0.2 {Dahiana'U}/dL Normal 0.2 - 1. 0 [facility] Comment on above: Performed By: #### P TT #### [facility] [address] [place] [address] Dr. Hugh Landis WBC 0-2 Abnormal NONE SEEN [facility] Comment on above: Performed By: #### P TT #### [facility] [address] [place] [address] Dr. Hugh Landis URINE T PROTEIN CREAT RATIOo n 11-15-2021 Protein (U) [Mass/Vol] 10.0 mg/dL Normal <=12.0 [facility] Comment on above: Performed By: #### B MP #### [facility] [address] [place] [address] Dr. Hugh Landis UR PROT CREAT RAT 0.18 Normal [facility] Comment on above: Performed By: #### B MP #### [facility] [address] [place] [address] Dr. Hugh Landis URINE CREAT 57.11 mg/dL Normal 20.00-300.00 [facility] Comment on above: Performed By: #### B MP #### [facility] [address] [place] [address] Dr. Hugh Landis FERRITINon 11-14-2021 Ferritin [Mass/Vol] 95.0 ng/mL Normal 26.0-388.0 [facility] Comment on above: Performed By: #### C MP, LIPID, TSH #### [facility] [address] [place] [address] Dr. Hugh Landis HEMOGRAM AND PLATELon 2021 Hematocrit (Bld) [Volume fraction] 35.7 % Critically low 42.0-54.0 [facility] Comment on above: Performed By: #### U TOMAS, TSH, CMP, LIPID, T7 #### [facility] [address] [place] [address] Dr. Hugh Landis Hemoglobin (Bld) [Mass/Vol] 11.5 g/dL Critically low 14.0-18.0 [facility] Comment on above: Performed By: #### U TOMAS, TSH, CMP, LIPID, T7 #### [facility] [address] [place] [address] Dr. Hugh Landis MCH (RBC) [Entitic mass] 30.3 pg Normal 25.9-34.0 [facility] Comment on above: Performed By: #### U TOMAS, TSH, CMP, LIPID, T7 #### [facility] [address] [place] [address] Dr. Hugh Landis MCHC (RBC) [Mass/Vol] 32.2 g/dL Normal 29.9-35.2 [facility] Comment on above: Performed By: #### U TOMAS, TSH, CMP, LIPID, T7 #### [facility] [address] [place] [address] Dr. Hugh Landis MCV (RBC) [Entitic vol] 93.9 fL Normal 80.0-94.0 [facility] Comment on above: Performed By: #### U TOMAS, TSH, CMP, LIPID, T7 #### [facility] [address] [place] [address] Dr. Hugh Landis PLT 254 103/ul Normal 150-450 [facility] Comment on above: Performed By: #### U TOMAS, TSH, CMP, LIPID, T7 #### [facility] [address] [address] [address] Hugh Landis RBC 3.80 106/ul Critically low 4.70-6.10 [facility] Comment on above: Performed By: #### U TOMAS, TSH, CMP, LIPID, T7 #### [facility] [address] [address] [address] Hugh Landis WBC 6.4 103/ul Normal 4.0-11.0 [facility] Comment on above: Performed By: #### U TOMAS, TSH, CMP, LIPID, T7 #### [facility] [address] [address] [address] Hugh Landis IRON AND TIBCon 11-14-2021 % SATURATION 27.6 % Normal [facility] Comment on above: Performed By: #### C MP, LIPID, TSH #### [facility] [address] [place] [address] Dr. Hugh Landis Iron [Mass/Vol] 68.0 ug/dL Normal 65.0-175.0 [facility] Comment on above: Performed By: #### C MP, LIPID, TSH #### [facility] [address] [address] [address] Hugh Landis TIBC DIRECT 246.0 ug/dL Critically low 250.0-450.0 [facility] Comment on above: Performed By: #### C MP, LIPID, TSH #### [facility] [address] [place] [address] Dr. Hugh Landis MAGNESIUMon 11-14-2021 Magnesium [Mass/Vol] 1.8 mg/dL Normal 1.8-2.4 [facility] Comment on above: Performed By: #### U TOMAS, TSH, CMP, LIPID, T7 #### [facility] [address] [address] [address] Hugh Landis RENAL FUNCTION PANELon 11-14 Albumin [Mass/Vol] 3.4 g/dL Normal 3.4-5.0 [facility] Comment on above: Performed By: #### U TOMAS, TSH, CMP, LIPID, T7 #### [facility] [address] [place] [address] Dr. Hugh Landis Calcium [Mass/Vol] 9.1 mg/dL Normal 8.5-10.1 [facility] Comment on above: Performed By: #### U TOMAS, TSH, CMP, LIPID, T7 #### [facility] [address] [address] [address] Hugh Landis Chloride [Moles/Vol] 105 mmol/L Normal 98-107 [facility] Comment on above: Performed By: #### U TOMAS, TSH, CMP, LIPID, T7 #### [facility] [address] [address] [address] Hugh Landis CO2 [Moles/Vol] 29.2 mmol/L Normal 21.0-32.0 [facility] Comment on above: Performed By: #### U TOMAS, TSH, CMP, LIPID, T7 #### [facility] [address] [place] [address] Dr. Hugh Landis Creatinine [Mass/Vol] 1.62 mg/dL Critically high 0.70-1.30 [facility] Comment on above: Performed By: #### U TOMAS, TSH, CMP, LIPID, T7 #### [facility] [address] [address] [address] Hugh Landis EGFR-AF TURKMEN 53 mL/min/1.73m2 Critically low >=60 [facility] Comment on above: Performed By: #### U TOMAS, TSH, CMP, LIPID, T7 #### [facility] [address] [address] [address] Hugh Landis EGFR-NON AF TURKMEN 44 mL/min/1.73m2 Critically low >=60 [facility] Comment on above: Performed By: #### U TOMAS, TSH, CMP, LIPID, T7 #### [facility] [address] [address] [address] Hugh Landis Glucose [Mass/Vol] 136 mg/dL Critically high 74-106 [facility] Comment on above: Performed By: #### U TOMAS, TSH, CMP, LIPID, T7 #### [facility] [address] [address] [address] Hugh Landis Phosphate [Mass/Vol] 2.8 mg/dL Normal 2.6-4.7 [facility] Comment on above: Performed By: #### U TOMAS, TSH, CMP, LIPID, T7 #### [facility] [address] [place] [address] Dr. Hugh Landis Potassium [Moles/Vol] 3.1 mmol/L Critically low 3.5-5.1 [facility] Comment on above: Performed By: #### U TOMAS, TSH, CMP, LIPID, T7 #### [facility] [address] [place] [address] Dr. Hugh Landis Sodium [Moles/Vol] 141 mmol/L Normal 136-145 [facility] Comment on above: Performed By: #### U TOMAS, TSH, CMP, LIPID, T7 #### [facility] [address] [place] [address] Dr. Hugh Landis Urea nitrogen [Mass/Vol] 19.0 mg/dL Critically high 7.0-18.0 [facility] Comment on above: Performed By: #### U TOMAS, TSH, CMP, LIPID, T7 #### [facility] [address] [place] [address] Dr. Hugh Landis URIC ACID SERUMon 11-14-2021 Urate [Mass/Vol] 8.7 mg/dL Critically high 3.5-7.2 [facility] Comment on above: Performed By: #### U TOMAS, TSH, CMP, LIPID, T7 #### [facility] [address] [place] [address] Dr. Hugh Landis VIT B12 AND FOLATEon 022 Cobalamin (Vitamin B12) [Mass/Vol] 373.0 pg/mL Normal 193.0-986.0 [facility] Comment on above: Performed By: #### U TOMAS, TSH, CMP, LIPID, T7 #### [facility] [address] [place] [address] Dr. Hugh Landis FOLATE 14.00 ng/mL Normal 8.60-58.90 [facility] Comment on above: Performed By: #### U TOMAS, TSH, CMP, LIPID, T7 #### [facility] [address] [place], [place] [address] Dr. Hugh Landis VITAMIN D 25 OHon 11-14-2021 VIT D 25-OH 33.8 ng/mL Normal [facility] Comment on above: Performed By: #### U TOMAS, TSH, CMP, LIPID, T7 #### [facility] [address] [place], [place] [address] Dr. Hugh Landis VIT D RANGES SEE BELOW Normal [facility] Comment on above: Result Comment: <20 ng/mL Vit D deficient 20 - <30 ng/mL Vit D insufficient 30 - 100 ng/mL Vit D sufficient >100 ng/mL Potential Toxicity Performed By: #### U TOMAS, TSH, CMP, LIPID, T7 #### [facility] [id number] Hugh Landis US KIDNEYS BLADDERon 022 [...] LARIOS Date: 2021-11-01 16:44 Normal [facility] XR CHEST 2 Von 11-01-2021 XR [...] TSE Date: 2021-11-01 06:51 Normal [facility] NM LUNG VENT_PERFon 11-01-19 22 NM LUNG VENT_PERF EXAM: NM LUNG VENT_PERF HISTORY: Dyspnea COMPARISON: Chest x-ray 10/31/2021 TECHNIQUE: 6.1 mCi technetium MAA. 24.9 mCi technetium DTPA. FINDINGS: Perfusion images demonstrate no segmental perfusion defects to suggest acute pulmonary embolism Ventilation images are normal without ventilation defects. IMPRESSION: Normal ventilation/perfusion scan Electronically authenticated by: JASPER SCHRADER Date: 2021-10-31 12:35 Normal [facility] PROF CHEM 8 (BAS METB)on Anion gap [Moles/Vol] 17.5 mmol/L Normal [facility] Comment on above: Performed By: #### B MP #### [facility] [address] [place] [address] Dr. Hugh Landis Calcium [Mass/Vol] 9.4 mg/dL Normal 8.5-10.1 [facility] Comment on above: Performed By: #### B MP #### [facility] [address] [place] [address] Dr. Hugh Landis Chloride [Moles/Vol] 100 mmol/L Normal 98-107 [facility] Comment on above: Performed By: #### B MP #### [facility] [address] [address] [address] Hugh Landis CO2 [Moles/Vol] 22.8 mmol/L Normal 21.0-32.0 [facility] Comment on above: Performed By: #### B MP #### [facility] [address] [address] [address] Hugh Landis Creatinine [Mass/Vol] 2.69 mg/dL Critically high 0.70-1.30 [facility] Comment on above: Performed By: #### B MP #### [facility] [address] [address] [address] Hugh Landis EGFR-AF TURKMEN 30 mL/min/1.73m2 Critically low >=60 [facility] Comment on above: Performed By: #### B MP #### [facility] [address] [address] [address] Hugh Lanids EGFR-NON AF TURKMEN 24 mL/min/1.73m2 Critically low >=60 [facility] Comment on above: Performed By: #### B MP #### [facility] [address] [address] [address] Hugh Landis Glucose [Mass/Vol] 117 mg/dL Critically high 74-106 [facility] Comment on above: Performed By: #### B MP #### [facility] [address] [address] [address] Hugh Landis Potassium [Moles/Vol] 4.3 mmol/L Normal 3.5-5.1 [facility] Comment on above: Performed By: #### B MP #### [facility] [address] [place] [address] Dr. Hugh Landis Sodium [Moles/Vol] 136 mmol/L Normal 136-145 [facility] Comment on above: Performed By: #### B MP #### [facility] [address] [place] [address] Dr. Hugh Landis Urea nitrogen [Mass/Vol] 41.0 mg/dL Critically high 7.0-18.0 [facility] Comment on above: Performed By: #### B MP #### [facility] [address] [address] [address] Hugh Landis Urea nitrogen/Creatinine [Mass ratio] 15.2 mg/mg Normal [facility] Comment on above: Performed By: #### B MP #### [facility] [address] [place] [address] Dr. Hugh Landis CBC AUTO DIFFon 10-16-2021 BASO # 0.0 103/ul Normal 0.0-0.1 [facility] Comment on above: Performed By: #### P T #### [facility] [address] [place] [address] Dr. Hugh Landis Basophils/100 WBC (Bld) 0.6 % Normal 0.2-2.0 [facility] Comment on above: Performed By: #### P T #### [facility] [address] [place] [address] Dr. Hugh Landis EO # 0.2 103/ul Normal 0.0-0.7 [facility] Comment on above: Performed By: #### P T #### [facility] [address] [place] [address] Dr. Hugh Landis Eosinophils/100 WBC (Bld) 2.3 % Normal 0.9-7.0 [facility] Comment on above: Performed By: #### P T #### [facility] [address] [place] [address] Dr. Hugh Landis Erythrocyte distribution width (RBC) [Ratio] 12.7 % Normal 11.0-15.0 [facility] Comment on above: Performed By: #### P T #### [facility] [address] [place] [address] Dr. Hugh Landis Hematocrit (Bld) [Volume fraction] 36.2 % Critically low 42.0-54.0 [facility] Comment on above: Performed By: #### P T #### [facility] [address] [place] [address] Dr. Hugh Landis Hemoglobin (Bld) [Mass/Vol] 11.5 g/dL Critically low 14.0-18.0 [facility] Comment on above: Performed By: #### P T #### [facility] [address] [place] [address] Dr. Hugh Landis IG # 0.02 10e3/ul Normal 0.00-0.03 [facility] Comment on above: Performed By: #### P T #### [facility] [address] [place] [address] Dr. Hugh Landis IG % 0.3 % Normal 0.0-0.5 [facility] Comment on above: Performed By: #### P T #### [facility] [address] [place] [address] Dr. Hugh Landis LYMPH # 1.4 103/ul Normal 1.2-3.8 [facility] Comment on above: Performed By: #### P T #### [facility] [address] [place] [address] Dr. Hugh Landis Lymphocytes/100 WBC (Bld) 21.3 % Normal 20.5-60.0 [facility] Comment on above: Performed By: #### P T #### [facility] [address] [place] [address] Dr. Hugh Landis MANUAL DIFF REQ NO Normal [facility] Comment on above: Performed By: #### P T #### [facility] [address] [place] [address] Dr. Hugh Landis MCH (RBC) [Entitic mass] 29.6 pg Normal 25.9-34.0 [facility] Comment on above: Performed By: #### P T #### [facility] [address] [place] [address] Dr. Hugh Landis MCHC (RBC) [Mass/Vol] 31.8 g/dL Normal 29.9-35.2 [facility] Comment on above: Performed By: #### P T #### [facility] [address] [place] [address] Dr. Hugh Landis MCV (RBC) [Entitic vol] 93.1 fL Normal 80.0-94.0 [facility] Comment on above: Performed By: #### P T #### [facility] [address] [place] [address] Dr. Hugh Landis MONO # 0.8 103/ul Normal 0.3-0.8 [facility] Comment on above: Performed By: #### P T #### [facility] [address] [place] [address] Dr. Hugh Landis Monocytes/100 WBC (Bld) 11.5 % Normal 1.7-12.0 [facility] Comment on above: Performed By: #### P T #### [facility] [address] [place] [address] Dr. Hugh Landis NEUT # 4.2 103/ul Normal 1.4-6.5 [facility] Comment on above: Performed By: #### P T #### [facility] [address] [place] [address] Dr. Hugh Landis Neutrophils/100 WBC (Bld) 64.0 % Normal 43.0-75.0 [facility] Comment on above: Performed By: #### P T #### [facility] [address] [place] [address] Dr. Hugh Landis Platelet mean volume (Bld) [Entitic vol] 9.2 fL Critically low 9.5-13.5 [facility] Comment on above: Performed By: #### P T #### [facility] [address] [place] [address] Dr. Hugh Landis PLT 241 103/ul Normal 150-450 [facility] Comment on above: Performed By: #### P T #### [facility] [address] [place] [address] Dr. Hugh Landis RBC 3.89 106/ul Critically low 4.70-6.10 [facility] Comment on above: Performed By: #### P T #### [facility] [address] [place] [address] Dr. Hugh Landis WBC 6.5 103/ul Normal 4.0-11.0 [facility] Comment on above: Performed By: #### P T #### [facility] [address] [place] [address] Dr. Hugh Landis [facility]26 SARS-CoV-2 (COVID-19) RNA MUKUL+probe Ql (Unsp spec) Not detected Normal NOT DETECTED [facility] Comment on above: Result Comment: This test is not yet approved or cleared by the [place] FDA. When there are no FDA-approved or cleared tests available, and other criteria are met, FDA can make tests available under an emergency access mechanism called an Emergency Use Authorization (EUA). The EUA for this test is supported by the [place] of Health and Human Service's (HHS's) declaration [...] TOMAS, TSH, CMP, LIPID, T7 #### [facility] [address] [place] [address] Dr. Hugh Landis PROF CHEM 8 (BAS METB)on Anion gap [Moles/Vol] 16.3 mmol/L Normal [facility] Comment on above: Performed By: #### C MP, LIPID, TSH #### [facility] [address] [place] [address] Dr. Hugh Landis Calcium [Mass/Vol] 9.6 mg/dL Normal 8.5-10.1 [facility] Comment on above: Performed By: #### C MP, LIPID, TSH #### [facility] [address] [place] [address] Dr. Hugh Landis Chloride [Moles/Vol] 103 mmol/L Normal 98-107 [facility] Comment on above: Performed By: #### C MP, LIPID, TSH #### [facility] [address] [place] [address] Dr. Hugh Landis CO2 [Moles/Vol] 21.9 mmol/L Normal 21.0-32.0 [facility] Comment on above: Performed By: #### C MP, LIPID, TSH #### [facility] [address] [place] [address] Dr. Hugh Landis Creatinine [Mass/Vol] 3.58 mg/dL Critically high 0.70-1.30 [facility] Comment on above: Performed By: #### C MP, LIPID, TSH #### [facility] [address] [place] [address] Dr. Hugh Landis EGFR-AF TURKMEN 21 mL/min/1.73m2 Critically low >=60 [facility] Comment on above: Performed By: #### C MP, LIPID, TSH #### [facility] [address] [place] [address] Dr. Hugh Landis EGFR-NON AF TURKMEN 18 mL/min/1.73m2 Critically low >=60 [facility] Comment on above: Performed By: #### C MP, LIPID, TSH #### [facility] [address] [place] [address] Dr. Hugh Landis Glucose [Mass/Vol] 115 mg/dL Critically high 74-106 [facility] Comment on above: Performed By: #### C MP, LIPID, TSH #### [facility] [address] [place] [address] Dr. Hugh Landis Potassium [Moles/Vol] 5.2 mmol/L Critically high 3.5-5.1 [facility] Comment on above: Performed By: #### C MP, LIPID, TSH #### [facility] [address] [place] [address] Dr. Hugh Landis Sodium [Moles/Vol] 136 mmol/L Normal 136-145 [facility] Comment on above: Performed By: #### C MP, LIPID, TSH #### [facility] [address] [place] [address] Dr. Hugh Landis Urea nitrogen [Mass/Vol] 54.0 mg/dL Critically high 7.0-18.0 [facility] Comment on above: Performed By: #### C MP, LIPID, TSH #### [facility] [address] [place] [address] Dr. Hugh Landis Urea nitrogen/Creatinine [Mass ratio] 15.1 mg/mg Normal [facility] Comment on above: Performed By: #### C MP, LIPID, TSH #### [facility] [address] [place] [address] Dr. Hugh Landis MRSA COLONIZATION SCREENING CULTUREon 10-09-2021 MRSA Screening Culture Negative Normal [facility] Comment on above: Performed By: #### C MP, LIPID, TSH #### [facility] [address] [place] [address] Dr. Hugh Landis CBC AUTO DIFFon 10-06-2021 BASO # 0.0 103/ul Normal 0.0-0.1 [facility] Comment on above: Performed By: #### U TOMAS, TSH, CMP, LIPID, T7 #### [facility] [address] [place] [address] Dr. Hugh Landis Basophils/100 WBC (Bld) 0.3 % Normal 0.2-2.0 [facility] Comment on above: Performed By: #### U TOMAS, TSH, CMP, LIPID, T7 #### [facility] [address] [place] [address] Dr. Hugh Landis EO # 0.1 103/ul Normal 0.0-0.7 [facility] Comment on above: Performed By: #### U TOMAS, TSH, CMP, LIPID, T7 #### [facility] [address] [place] [address] Dr. Hugh Landis Eosinophils/100 WBC (Bld) 2.3 % Normal 0.9-7.0 [facility] Comment on above: Performed By: #### U TOMAS, TSH, CMP, LIPID, T7 #### [facility] [address] [place] [address] Dr. Hugh Landis Erythrocyte distribution width (RBC) [Ratio] 13.3 % Normal 11.0-15.0 [facility] Comment on above: Performed By: #### U TOMAS, TSH, CMP, LIPID, T7 #### [facility] [address] [place] [address] Dr. Hugh Landis Hematocrit (Bld) [Volume fraction] 36.5 % Critically low 42.0-54.0 [facility] Comment on above: Performed By: #### U TOMAS, TSH, CMP, LIPID, T7 #### [facility] [address] [place] [address] Dr. Hugh Landis Hemoglobin (Bld) [Mass/Vol] 11.7 g/dL Critically low 14.0-18.0 [facility] Comment on above: Performed By: #### U TOMAS, TSH, CMP, LIPID, T7 #### [facility] [address] [address] [address] Hugh Landis IG # 0.02 10e3/ul Normal 0.00-0.03 [facility] Comment on above: Performed By: #### U TOMAS, TSH, CMP, LIPID, T7 #### [facility] [address] [address] [address] Hugh Landis IG % 0.3 % Normal 0.0-0.5 [facility] Comment on above: Performed By: #### U TOMAS, TSH, CMP, LIPID, T7 #### [facility] [address] [place] [address] Dr. Hugh Landis LYMPH # 1.3 103/ul Normal 1.2-3.8 [facility] Comment on above: Performed By: #### U TOMAS, TSH, CMP, LIPID, T7 #### [facility] [address] [place] [address] Dr. Hugh Landis Lymphocytes/100 WBC (Bld) 21.9 % Normal 20.5-60.0 [facility] Comment on above: Performed By: #### U TOMAS, TSH, CMP, LIPID, T7 #### [facility] [address] [place] [address] Dr. Hugh Landis MANUAL DIFF REQ NO Normal [facility] Comment on above: Performed By: #### U TOMAS, TSH, CMP, LIPID, T7 #### [facility] [address] [place] [address] Dr. Hugh Landis MCH (RBC) [Entitic mass] 29.7 pg Normal 25.9-34.0 [facility] Comment on above: Performed By: #### U TOMAS, TSH, CMP, LIPID, T7 #### [facility] [address] [place] [address] Dr. Hugh Landis MCHC (RBC) [Mass/Vol] 32.1 g/dL Normal 29.9-35.2 [facility] Comment on above: Performed By: #### U TOMAS, TSH, CMP, LIPID, T7 #### [facility] [address] [place] [address] Dr. Hugh Landis MCV (RBC) [Entitic vol] 92.6 fL Normal 80.0-94.0 [facility] Comment on above: Performed By: #### U TOMAS, TSH, CMP, LIPID, T7 #### [facility] [address] [address] [address] Hugh Landis MONO # 0.7 103/ul Normal 0.3-0.8 [facility] Comment on above: Performed By: #### U TOMAS, TSH, CMP, LIPID, T7 #### [facility] [address] [address] [address] Hugh Landis Monocytes/100 WBC (Bld) 11.3 % Normal 1.7-12.0 [facility] Comment on above: Performed By: #### U TOMAS, TSH, CMP, LIPID, T7 #### [facility] [address] [address] [address] Hugh Landis NEUT # 3.7 103/ul Normal 1.4-6.5 [facility] Comment on above: Performed By: #### U TOMAS, TSH, CMP, LIPID, T7 #### [facility] [address] [place] [address] Dr. Hugh Landis Neutrophils/100 WBC (Bld) 63.9 % Normal 43.0-75.0 [facility] Comment on above: Performed By: #### U TOMAS, TSH, CMP, LIPID, T7 #### [facility] [address] [address] [address] Hugh Landis Platelet mean volume (Bld) [Entitic vol] 8.9 fL Critically low 9.5-13.5 [facility] Comment on above: Performed By: #### U TOMAS, TSH, CMP, LIPID, T7 #### [facility] [address] [address] [address] Hugh Landis PLT 257 103/ul Normal 150-450 [facility] Comment on above: Performed By: #### U TOMAS, TSH, CMP, LIPID, T7 #### [facility] [address] [address] [address] Hugh Landis RBC 3.94 106/ul Critically low 4.70-6.10 [facility] Comment on above: Performed By: #### U TOMAS, TSH, CMP, LIPID, T7 #### [facility] [address] [address] [address] Hugh Landis WBC 5.8 103/ul Normal 4.0-11.0 [facility] Comment on above: Performed By: #### U TOMAS, TSH, CMP, LIPID, T7 #### [facility] [address] [address] [address] Hugh Landis GLYCOHEMOGLOBIN A1Con 2021 ADA RECOMMENDATION SEE BELOW Normal [facility] Comment on above: Result Comment: ADA RECOMMENDED LIMIT 4.0 - 6.0 ADA THERAPEUTIC TARGET < 7.0 ACTION SUGGESTED > 7.0 Performed By: #### U TOMAS, TSH, CMP, LIPID, T7 #### [facility] [address] [address] [address] Hugh Landis Glucose [Mass/Vol] 134 mg/dL Normal [facility] Comment on above: Performed By: #### U TOMAS, TSH, CMP, LIPID, T7 #### [facility] [address] [address] [address] Hugh Landis HbA1c (Bld) [Mass fraction] 6.3 % Critically high 4.5-6.2 [facility] Comment on above: Performed By: #### U TOMAS, TSH, CMP, LIPID, T7 #### [facility] [address] [address] [address] Hugh Landis PROF CHEM 8 (BAS METB)on Anion gap [Moles/Vol] 17.6 mmol/L Normal [facility] Comment on above: Performed By: #### C MP, LIPID, TSH #### [facility] [address] [address] [address] Hugh Landis Calcium [Mass/Vol] 9.5 mg/dL Normal 8.5-10.1 [facility] Comment on above: Performed By: #### C MP, LIPID, TSH #### [facility] [address] [address] [address] Hugh Landis Chloride [Moles/Vol] 102 mmol/L Normal 98-107 [facility] Comment on above: Performed By: #### C MP, LIPID, TSH #### [facility] [address] [place] [address] Dr. Hugh Landis CO2 [Moles/Vol] 22.2 mmol/L Normal 21.0-32.0 [facility] Comment on above: Performed By: #### C MP, LIPID, TSH #### [facility] [address] [place] [address] Dr. Hugh Landis Creatinine [Mass/Vol] 2.94 mg/dL Critically high 0.70-1.30 [facility] Comment on above: Performed By: #### C MP, LIPID, TSH #### [facility] [address] [place] [address] Dr. Hugh Landis EGFR-AF TURKMEN 27 mL/min/1.73m2 Critically low >=60 [facility] Comment on above: Performed By: #### C MP, LIPID, TSH #### [facility] [address] [place] [address] Dr. Hugh Landis EGFR-NON AF TURKMEN 22 mL/min/1.73m2 Critically low >=60 [facility] Comment on above: Performed By: #### C MP, LIPID, TSH #### [facility] [address] [place] [address] Dr. Hugh Landis Glucose [Mass/Vol] 234 mg/dL Critically high 74-106 [facility] Comment on above: Performed By: #### C MP, LIPID, TSH #### [facility] [address] [place] [address] Dr. Hugh Landis Potassium [Moles/Vol] 5.8 mmol/L Critically high 3.5-5.1 [facility] Comment on above: Performed By: #### C MP, LIPID, TSH #### [facility] [address] [place] [address] Dr. Hugh Landis Sodium [Moles/Vol] 136 mmol/L Normal 136-145 [facility] Comment on above: Performed By: #### C MP, LIPID, TSH #### [facility] [address] [address] [address] Hugh Landis Urea nitrogen [Mass/Vol] 46.0 mg/dL Critically high 7.0-18.0 [facility] Comment on above: Performed By: #### C MP, LIPID, TSH #### [facility] [address] [address] [address] Hugh Landis Urea nitrogen/Creatinine [Mass ratio] 15.6 mg/mg Normal [facility] Comment on above: Performed By: #### C MP, LIPID, TSH #### [facility] [address] [address] [address] Hugh Landis PROTIMEon 10-06-2021 INR Coag (PPP) [Relative time] 1.22 {INR} Normal [facility] Comment on above: Performed By: #### U TOMSA, TSH, CMP, LIPID, T7 #### [facility] [address] [place] [address] Dr. Hugh Landis INR GUIDELINES SEE BELOW Normal [facility] Comment on above: Result Comment: VIC RED INR: 2.0 - 3.0 CONDITIONS NOT LISTED BELOW 2.5 - 3.5 FOR PROSTHETIC HEART VALVE REPLACEMENT 2.5 - 3.5 RECURRENT THROMBOSIS Performed By: #### U TOMAS, TSH, CMP, LIPID, T7 #### [facility] [address] [place] [address] Dr. Hugh Landis PT Coag (PPP) [Time] 13.0 s Critically high 9.0-11.6 [facility] Comment on above: Performed By: #### U TOMAS, TSH, CMP, LIPID, T7 #### [facility] [address] [place] [address] Dr. Hugh Landis PTTon 10-06-2021 aPTT Coag (Bld) [Time] 30.6 s Normal 22.3-36.2 [facility] Comment on above: Performed By: #### U TOMAS, TSH, CMP, LIPID, T7 #### [facility] [address] [place] [address] Dr. Hugh Landis UA RANDOMon 10-06-2021 Bilirubin Ql (U) Negative Normal NEGATIVE [facility] Comment on above: Performed By: #### C MP, LIPID, TSH #### [facility] [address] [address] [address] Hugh Landis Clarity (U) CLEAR Normal CLEAR [facility] Comment on above: Performed By: #### C MP, LIPID, TSH #### [facility] [address] [address] [address] Hugh Landis Color (U) LT. YELLOW Normal YELLOW [facility] Comment on above: Performed By: #### C MP, LIPID, TSH #### [facility] [address] [address] [address] Hugh Landis Glucose Ql (U) Negative Normal NEGATIVE [facility] Comment on above: Performed By: #### C MP, LIPID, TSH #### [facility] [address] [place] [address] Dr. Hugh Landis Hemoglobin Ql (U) Negative Normal NEGATIVE [facility] Comment on above: Performed By: #### C MP, LIPID, TSH #### [facility] [address] [place] [address] Dr. Hugh Landis Ketones Ql (U) Negative Normal NEGATIVE [facility] Comment on above: Performed By: #### C MP, LIPID, TSH #### [facility] [address] [place] [address] Dr. Hugh Landis LEUKOCYTES Negative Normal NEGATIVE [facility] Comment on above: Performed By: #### C MP, LIPID, TSH #### [facility] [address] [address] [address] Hugh Landis Nitrite Ql (U) Negative Normal NEGATIVE [facility] Comment on above: Performed By: #### C MP, LIPID, TSH #### [facility] [address] [address] [address] Hugh Landis pH (U) 5.5 [pH] Normal 5-9 [facility] Comment on above: Performed By: #### C MP, LIPID, TSH #### [facility] [address] [address] [address] Hugh Landis SPEC GRAVITY 1.020 Normal 1.005-<=1.02 5 [facility] Comment on above: Performed By: #### C MP, LIPID, TSH #### [facility] [address] [place] [address] Dr. Hugh Landis UA PROTEIN Negative Normal NEGATIVE/ TRACE [facility] Comment on above: Performed By: #### C MP, LIPID, TSH #### [facility] [address] [place] [address] Dr. Hugh Landis Urobilinogen Qn (U) 0.2 {Dah[place]'U}/dL Normal 0.2 - 1. 0 [facility] Comment on above: Performed By: #### C MP, LIPID, TSH #### [facility] [address] [place] [address] Dr. Hugh Landis CBC AUTO DIFFon 09-25-2021 BASO # 0.0 103/ul Normal 0.0-0.1 [facility] Comment on above: Performed By: #### U TOMAS, TSH, CMP, LIPID, T7 #### [facility] [address] [place] [address] Dr. Hugh Landis Basophils/100 WBC (Bld) 0.4 % Normal 0.2-2.0 [facility] Comment on above: Performed By: #### U TOMAS, TSH, CMP, LIPID, T7 #### [facility] [address] [place] [address] Dr. Hugh Landis EO # 0.1 103/ul Normal 0.0-0.7 [facility] Comment on above: Performed By: #### U TOMAS, TSH, CMP, LIPID, T7 #### [facility] [address] [place] [address] Dr. Hugh Landis Eosinophils/100 WBC (Bld) 1.7 % Normal 0.9-7.0 [facility] Comment on above: Performed By: #### U TOMAS, TSH, CMP, LIPID, T7 #### [facility] [address] [place] [address] Dr. Hugh Landis Erythrocyte distribution width (RBC) [Ratio] 13.5 % Normal 11.0-15.0 [facility] Comment on above: Performed By: #### U TOMAS, TSH, CMP, LIPID, T7 #### [facility] [address] [place] [address] Dr. Hugh Landis Hematocrit (Bld) [Volume fraction] 36.0 % Critically low 42.0-54.0 [facility] Comment on above: Performed By: #### U TOMAS, TSH, CMP, LIPID, T7 #### [facility] [address] [place] [address] Dr. Hugh Landis Hemoglobin (Bld) [Mass/Vol] 11.7 g/dL Critically low 14.0-18.0 [facility] Comment on above: Performed By: #### U TOMAS, TSH, CMP, LIPID, T7 #### [facility] [address] [place] [address] Dr. Hugh Landis IG # 0.02 10e3/ul Normal 0.00-0.03 [facility] Comment on above: Performed By: #### U TOMAS, TSH, CMP, LIPID, T7 #### [facility] [address] [place] [address] Dr. Hugh Landis IG % 0.3 % Normal 0.0-0.5 [facility] Comment on above: Performed By: #### U TOMAS, TSH, CMP, LIPID, T7 #### [facility] [address] [place] [address] Dr. Hugh Landis LYMPH # 1.3 103/ul Normal 1.2-3.8 [facility] Comment on above: Performed By: #### U TOMAS, TSH, CMP, LIPID, T7 #### [facility] [address] [place] [address] Dr. Hugh Landis Lymphocytes/100 WBC (Bld) 18.3 % Critically low 20.5-60.0 [facility] Comment on above: Performed By: #### U TOMAS, TSH, CMP, LIPID, T7 #### [facility] [address] [place] [address] Dr. Hugh Landis MANUAL DIFF REQ NO Normal [facility] Comment on above: Performed By: #### U TOMAS, TSH, CMP, LIPID, T7 #### [facility] [address] [place] [address] Dr. Hugh Landis MCH (RBC) [Entitic mass] 29.4 pg Normal 25.9-34.0 [facility] Comment on above: Performed By: #### U TOMAS, TSH, CMP, LIPID, T7 #### [facility] [address] [place] [address] Dr. Hugh Landis MCHC (RBC) [Mass/Vol] 32.5 g/dL Normal 29.9-35.2 [facility] Comment on above: Performed By: #### U TOMAS, TSH, CMP, LIPID, T7 #### [facility] [address] [place] [address] Dr. Hugh Landis MCV (RBC) [Entitic vol] 90.5 fL Normal 80.0-94.0 [facility] Comment on above: Performed By: #### U TOMAS, TSH, CMP, LIPID, T7 #### [facility] [address] [place] [address] Dr. Hugh Landis MONO # 0.6 103/ul Normal 0.3-0.8 [facility] Comment on above: Performed By: #### U TOMAS, TSH, CMP, LIPID, T7 #### [facility] [address] [place] [address] Dr. Hugh Landis Monocytes/100 WBC (Bld) 8.6 % Normal 1.7-12.0 [facility] Comment on above: Performed By: #### U TOMAS, TSH, CMP, LIPID, T7 #### [facility] [address] [place] [address] Dr. Hugh Landis NEUT # 4.9 103/ul Normal 1.4-6.5 [facility] Comment on above: Performed By: #### U TOMAS, TSH, CMP, LIPID, T7 #### [facility] [address] [place] [address] Dr. Hugh Landis Neutrophils/100 WBC (Bld) 70.7 % Normal 43.0-75.0 [facility] Comment on above: Performed By: #### U TOMAS, TSH, CMP, LIPID, T7 #### [facility] [address] [address] [address] Hugh Landis Platelet mean volume (Bld) [Entitic vol] 8.8 fL Critically low 9.5-13.5 [facility] Comment on above: Performed By: #### U TOMAS, TSH, CMP, LIPID, T7 #### [facility] [address] [place] [address] Dr. Hugh Landis PLT 270 103/ul Normal 150-450 [facility] Comment on above: Performed By: #### U TOMAS, TSH, CMP, LIPID, T7 #### [facility] [address] [place] [address] Dr. Hugh Landis RBC 3.98 106/ul Critically low 4.70-6.10 [facility] Comment on above: Performed By: #### U TOMAS, TSH, CMP, LIPID, T7 #### [facility] [address] [place] [address] Dr. Hugh Landis WBC 6.9 103/ul Normal 4.0-11.0 [facility] Comment on above: Performed By: #### U TOMAS, TSH, CMP, LIPID, T7 #### [facility] [address] [place] [address] Dr. Hugh Landsi CRPon 09-25-2021 CRP [Mass/Vol] mg/L Normal <=1.0 [facility] Comment on above: Performed By: #### P T #### [facility] [address] [place] [address] Dr. Hugh Landis CULTURE BLOODon 09-25-2021 Microscopic examination of blood, culture Culture Observations: NO GROWTH AT 5 DAYS. Normal [facility] Comment on above: Performed By: #### B MP #### [facility] [address] [place] [address] Dr. Hugh Landis Microscopic examination of blood, culture Culture Observations: NO GROWTH AT 5 DAYS. Normal [facility] Comment on above: Performed By: #### B MP #### [facility] [address] [place] [address] Dr. Hugh Landis IRONon 09-25-2021 Iron [Mass/Vol] 62.0 ug/dL Critically low 65.0-175.0 [facility] Comment on above: Performed By: #### B MP #### [facility] [address] [address] [address] Hugh Landis SED RATE RANSOMVILLEERGRENon 2021 SED RATE 102 mm/hr Critically high <=20 [facility] Comment on above: Performed By: #### C MP, LIPID, TSH #### [facility] [address] [place] [address] Dr. Hugh Landis NM BONE IMAGE 3 [...] TSE Date: 2021-09-05 16:15 Normal [facility] CREATININEon 08-25-2021 Creatinine [Mass/Vol] 1.92 mg/dL Critically high 0.70-1.30 [facility] Comment on above: Performed By: #### C MP, LIPID, TSH #### [facility] [address] [place] [address] Dr. Hugh Landis EGFR-AF TURKMEN 44 mL/min/1.73m2 Critically low >=60 [facility] Comment on above: Performed By: #### C MP, LIPID, TSH #### [facility] [address] [place] [address] Dr. Hugh Landis EGFR-NON AF TURKMEN 36 mL/min/1.73m2 Critically low >=60 [facility] Comment on above: Performed By: #### C MP, LIPID, TSH #### [facility] [address] [address] [address] Hugh Landis CTA CHEST WO W [...] TSE Date: 2021-08-25 10:16 Normal [facility] CBC AUTO DIFFon 08-18-2021 BASO # 0.0 103/ul Normal 0.0-0.1 [facility] Comment on above: Performed By: #### C MP, LIPID, TSH #### [facility] [address] [address] [address] Hugh Landis Basophils/100 WBC (Bld) 0.4 % Normal 0.2-2.0 [facility] Comment on above: Performed By: #### C MP, LIPID, TSH #### [facility] [address] [address] [address] Hugh Landis EO # 0.1 103/ul Normal 0.0-0.7 [facility] Comment on above: Performed By: #### C MP, LIPID, TSH #### [facility] [address] [address] [address] Hugh Landis Eosinophils/100 WBC (Bld) 1.8 % Normal 0.9-7.0 [facility] Comment on above: Performed By: #### C MP, LIPID, TSH #### [facility] [address] [place] [address] Dr. Hugh Landis Erythrocyte distribution width (RBC) [Ratio] 13.3 % Normal 11.0-15.0 [facility] Comment on above: Performed By: #### C MP, LIPID, TSH #### [facility] [address] [place] [address] Dr. Hugh Landis Hematocrit (Bld) [Volume fraction] 34.7 % Critically low 42.0-54.0 [facility] Comment on above: Performed By: #### C MP, LIPID, TSH #### [facility] [address] [place] [address] Dr. Hugh Landis Hemoglobin (Bld) [Mass/Vol] 11.3 g/dL Critically low 14.0-18.0 [facility] Comment on above: Performed By: #### C MP, LIPID, TSH #### [facility] [address] [place] [address] Dr. Hugh Landis IG # 0.05 10e3/ul Critically high 0.00-0.03 [facility] Comment on above: Performed By: #### C MP, LIPID, TSH #### [facility] [address] [place] [address] Dr. Hugh Landis IG % 0.7 % Critically high 0.0-0.5 [facility] Comment on above: Performed By: #### C MP, LIPID, TSH #### [facility] [address] [place] [address] Dr. Hugh Landis LYMPH # 1.1 103/ul Critically low 1.2-3.8 [facility] Comment on above: Performed By: #### C MP, LIPID, TSH #### [facility] [address] [place] [address] Dr. Hugh Landis Lymphocytes/100 WBC (Bld) 16.0 % Critically low 20.5-60.0 [facility] Comment on above: Performed By: #### C MP, LIPID, TSH #### [facility] [address] [place] [address] Dr. Hugh Landis MANUAL DIFF REQ NO Normal [facility] Comment on above: Performed By: #### C MP, LIPID, TSH #### [facility] [address] [place] [address] Dr. Hugh Landis MCH (RBC) [Entitic mass] 29.7 pg Normal 25.9-34.0 [facility] Comment on above: Performed By: #### C MP, LIPID, TSH #### [facility] [address] [place] [address] Dr. Hugh Landis MCHC (RBC) [Mass/Vol] 32.6 g/dL Normal 29.9-35.2 [facility] Comment on above: Performed By: #### C MP, LIPID, TSH #### [facility] [address] [place] [address] Dr. Hugh Landis MCV (RBC) [Entitic vol] 91.3 fL Normal 80.0-94.0 [facility] Comment on above: Performed By: #### C MP, LIPID, TSH #### [facility] [address] [place] [address] Dr. Hugh Landis MONO # 0.7 103/ul Normal 0.3-0.8 [facility] Comment on above: Performed By: #### C MP, LIPID, TSH #### [facility] [address] [place] [address] Dr. Hugh Landis Monocytes/100 WBC (Bld) 9.7 % Normal 1.7-12.0 [facility] Comment on above: Performed By: #### C MP, LIPID, TSH #### [facility] [address] [place] [address] Dr. Hugh Landis NEUT # 4.9 103/ul Normal 1.4-6.5 [facility] Comment on above: Performed By: #### C MP, LIPID, TSH #### [facility] [address] [place] [address] Dr. Hugh Landis Neutrophils/100 WBC (Bld) 71.4 % Normal 43.0-75.0 [facility] Comment on above: Performed By: #### C MP, LIPID, TSH #### [facility] [address] [address] [address] Hugh Landis Platelet mean volume (Bld) [Entitic vol] 9.0 fL Critically low 9.5-13.5 [facility] Comment on above: Performed By: #### C MP, LIPID, TSH #### [facility] [address] [address] [address] Hugh Landis PLT 264 103/ul Normal 150-450 [facility] Comment on above: Performed By: #### C MP, LIPID, TSH #### [facility] [address] [address] [address] Hugh Landis RBC 3.80 106/ul Critically low 4.70-6.10 [facility] Comment on above: Performed By: #### C MP, LIPID, TSH #### [facility] [address] [place] [address] Dr. Hugh Landis WBC 6.8 103/ul Normal 4.0-11.0 [facility] Comment on above: Performed By: #### C MP, LIPID, TSH #### [facility] [address] [place] [address] Dr. Hugh Landis PROF 14(COMP METB)on 022 Albumin [Mass/Vol] 3.5 g/dL Normal 3.4-5.0 [facility] Comment on above: Performed By: #### U TOMAS, TSH, CMP, LIPID, T7 #### [facility] [address] [place] [address] Dr. Hugh Landis Albumin/Globulin [Mass ratio] 0.8 {ratio} Normal [facility] Comment on above: Performed By: #### U TOMAS, TSH, CMP, LIPID, T7 #### [facility] [address] [place] [address] Dr. Hugh Landis ALP [Catalytic activity/Vol] 63 U/L Normal 46-116 [facility] Comment on above: Performed By: #### U TOMAS, TSH, CMP, LIPID, T7 #### [facility] [address] [address] [address] Hugh Landis ALT [Catalytic activity/Vol] 26 U/L Normal 16-63 [facility] Comment on above: Performed By: #### U TOMAS, TSH, CMP, LIPID, T7 #### [facility] [address] [address] [address] Hugh Landis Anion gap [Moles/Vol] 12.7 mmol/L Normal [facility] Comment on above: Performed By: #### U TOMAS, TSH, CMP, LIPID, T7 #### [facility] [address] [address] [address] Hugh Landis AST [Catalytic activity/Vol] 14 U/L Critically low 15-37 [facility] Comment on above: Performed By: #### U TOMAS, TSH, CMP, LIPID, T7 #### [facility] [address] [address] [address] Hugh Landis Bilirubin [Mass/Vol] 0.3 mg/dL Normal 0.2-1.0 [facility] Comment on above: Performed By: #### U TOMAS, TSH, CMP, LIPID, T7 #### [facility] [address] [address] [address] Hugh Landis Calcium [Mass/Vol] 9.2 mg/dL Normal 8.5-10.1 [facility] Comment on above: Performed By: #### U TOMAS, TSH, CMP, LIPID, T7 #### [facility] [address] [address] [address] Hugh Landis Chloride [Moles/Vol] 105 mmol/L Normal 98-107 [facility] Comment on above: Performed By: #### U TOMAS, TSH, CMP, LIPID, T7 #### [facility] [address] [address] [address] Hugh Landis CO2 [Moles/Vol] 25.5 mmol/L Normal 21.0-32.0 [facility] Comment on above: Performed By: #### U TOMAS, TSH, CMP, LIPID, T7 #### [facility] [address] [address] [address] Hugh Landis Creatinine [Mass/Vol] 2.46 mg/dL Critically high 0.70-1.30 [facility] Comment on above: Performed By: #### U TOMAS, TSH, CMP, LIPID, T7 #### [facility] [address] [address] [address] Hugh Landis EGFR-AF TURKMEN 33 mL/min/1.73m2 Critically low >=60 [facility] Comment on above: Performed By: #### U TOMAS, TSH, CMP, LIPID, T7 #### [facility] [address] [address] [address] Hugh Landis EGFR-NON AF TURKMEN 27 mL/min/1.73m2 Critically low >=60 [facility] Comment on above: Performed By: #### U TOMAS, TSH, CMP, LIPID, T7 #### [facility] [address] [address] [address] Hugh Landis Globulin (S) [Mass/Vol] 4.5 g/dL Normal [facility] Comment on above: Performed By: #### U TOMAS, TSH, CMP, LIPID, T7 #### [facility] [address] [address] [address] Hugh Landis Glucose [Mass/Vol] 119 mg/dL Critically high 74-106 [facility] Comment on above: Performed By: #### U TOMAS, TSH, CMP, LIPID, T7 #### [facility] [address] [address] [address] Hugh Landis Potassium [Moles/Vol] 4.2 mmol/L Normal 3.5-5.1 [facility] Comment on above: Performed By: #### U TOMAS, TSH, CMP, LIPID, T7 #### [facility] [address] [address] [address] Hugh Landis Protein [Mass/Vol] 8.0 g/dL Normal 6.4-8.2 [facility] Comment on above: Performed By: #### U TOMAS, TSH, CMP, LIPID, T7 #### [facility] [address] [address] [address] Hugh Landis Sodium [Moles/Vol] 139 mmol/L Normal 136-145 [facility] Comment on above: Performed By: #### U TOMAS, TSH, CMP, LIPID, T7 #### [facility] [address] [address] [address] Hugh Landis Urea nitrogen [Mass/Vol] 49.0 mg/dL Critically high 7.0-18.0 [facility] Comment on above: Performed By: #### U TOMAS, TSH, CMP, LIPID, T7 #### [facility] [address] [id number] Hugh Landis Urea nitrogen/Creatinine [Mass ratio] 19.9 mg/mg Normal [facility] Comment on above: Performed By: #### U TOMAS, TSH, CMP, LIPID, T7 #### [facility] [address] [address] [address] Hugh Landis TESTOSTERONE, FREE,DIRECT, T OTALon 08-14-2021 Free Testosterone(Direct) 5.9 pg/mL Critically low 7.2-24.0 [facility] Comment on above: Result Comment: Perf ormed at: BN Performed By: #### B MP #### [facility] [address] [place] [address] Dr. Hugh Landis Testosterone [Mass/Vol] 392 ng/dL Normal 264-916 [facility] Comment on above: Result Comment: Adul t male reference interval is based on a population of healthy nonobese males (BMI <30) between 19 and 39 years old. Gavi, et.al. JCEM 2017,102;[id number]. PMID: [id number]. Performed at: CB Performed By: #### B MP #### [facility] [address] [place], [place] [id number] Dr. Hugh Landis VITAMIN B1 (THIAMINE)on 07-27 Vit. B1, Whole Blood 145.1 nmol/L Normal 66.5-200.0 [facility] Comment on above: Performed By: #### C MP, LIPID, TSH #### [facility] [address] [id number] [address] Hugh Landis VITAMIN Aon 08-13-2021 Vitamin A 82.7 ug/dL Critically high 20.1-62.0 [facility] Comment on above: Result Comment: Refe [...] Performed By: #### P T #### [facility] [address] [place] [address] Dr. Hugh Landis ZINC SERUM OR PLASMAon 08-10 Zinc, Plasma or Serum 78 ug/dL Normal 44-115 [facility] Comment on above: Result Comment: Dete ction Limit = 5 Performed By: #### C MP, LIPID, TSH #### [facility] [address] [place] [address] Dr. Hugh Landis FOLATE ([facility])on Folate 12.9 ng/mL Normal >3.0 [facility] Comment on above: Result Comment: A se rum folate concentration of less than 3.1 ng/mL is considered to represent clinical deficiency. Performed By: #### P TT #### [facility] [address] [place] [address] Dr. Hugh Landis PTH INTACTon 08-09-2021 PTH, Intact 29 pg/mL Normal 15-65 [facility] Comment on above: Performed By: #### P TT #### [facility] [address] [place] [address] Dr. Hugh Landis CBC AUTO DIFFon 08-08-2021 BASO # 0.0 103/ul Normal 0.0-0.1 [facility] Comment on above: Performed By: #### C MP, LIPID, TSH #### [facility] [address] [place] [address] Dr. Hugh Landis Basophils/100 WBC (Bld) 0.6 % Normal 0.2-2.0 [facility] Comment on above: Performed By: #### C MP, LIPID, TSH #### [facility] [address] [place] [address] Dr. Hugh Landis EO # 0.2 103/ul Normal 0.0-0.7 [facility] Comment on above: Performed By: #### C MP, LIPID, TSH #### [facility] [address] [place] [address] Dr. Hugh Landis Eosinophils/100 WBC (Bld) 2.2 % Normal 0.9-7.0 [facility] Comment on above: Performed By: #### C MP, LIPID, TSH #### [facility] [address] [place] [address] Dr. Hugh Landis Erythrocyte distribution width (RBC) [Ratio] 13.4 % Normal 11.0-15.0 [facility] Comment on above: Performed By: #### C MP, LIPID, TSH #### [facility] [address] [place] [address] Dr. Hugh Landis Hematocrit (Bld) [Volume fraction] 38.2 % Critically low 42.0-54.0 [facility] Comment on above: Performed By: #### C MP, LIPID, TSH #### [facility] [address] [place] [address] Dr. Hugh Landis Hemoglobin (Bld) [Mass/Vol] 11.8 g/dL Critically low 14.0-18.0 [facility] Comment on above: Performed By: #### C MP, LIPID, TSH #### [facility] [address] [place] [address] Dr. uHgh Landis IG # 0.03 10e3/ul Normal 0.00-0.03 [facility] Comment on above: Performed By: #### C MP, LIPID, TSH #### [facility] [address] [place] [address] Dr. Hugh Landis IG % 0.4 % Normal 0.0-0.5 [facility] Comment on above: Performed By: #### C MP, LIPID, TSH #### [facility] [address] [place] [address] Dr. Hugh Landis LYMPH # 1.0 103/ul Critically low 1.2-3.8 [facility] Comment on above: Performed By: #### C MP, LIPID, TSH #### [facility] [address] [place] [address] Dr. Hugh Landis Lymphocytes/100 WBC (Bld) 14.9 % Critically low 20.5-60.0 [facility] Comment on above: Performed By: #### C MP, LIPID, TSH #### [facility] [address] [place] [address] Dr. Hugh Landis MANUAL DIFF REQ NO Normal [facility] Comment on above: Performed By: #### C MP, LIPID, TSH #### [facility] [address] [place] [address] Dr. Hugh Landis MCH (RBC) [Entitic mass] 28.5 pg Normal 25.9-34.0 [facility] Comment on above: Performed By: #### C MP, LIPID, TSH #### [facility] [address] [place] [address] Dr. Hugh Landis MCHC (RBC) [Mass/Vol] 30.9 g/dL Normal 29.9-35.2 [facility] Comment on above: Performed By: #### C MP, LIPID, TSH #### [facility] [address] [place] [address] Dr. Hugh Landis MCV (RBC) [Entitic vol] 92.3 fL Normal 80.0-94.0 [facility] Comment on above: Performed By: #### C MP, LIPID, TSH #### [facility] [address] [place] [address] Dr. Hugh Landis MONO # 0.7 103/ul Normal 0.3-0.8 [facility] Comment on above: Performed By: #### C MP, LIPID, TSH #### [facility] [address] [place] [address] Dr. Hugh Landis Monocytes/100 WBC (Bld) 10.6 % Normal 1.7-12.0 [facility] Comment on above: Performed By: #### C MP, LIPID, TSH #### [facility] [address] [place] [address] Dr. Hugh Landis NEUT # 4.9 103/ul Normal 1.4-6.5 [facility] Comment on above: Performed By: #### C MP, LIPID, TSH #### [facility] [address] [place] [address] Dr. Hugh Landis Neutrophils/100 WBC (Bld) 71.3 % Normal 43.0-75.0 [facility] Comment on above: Performed By: #### C MP, LIPID, TSH #### [facility] [address] [place] [address] Dr. Hugh Landis Platelet mean volume (Bld) [Entitic vol] 9.4 fL Critically low 9.5-13.5 [facility] Comment on above: Performed By: #### C MP, LIPID, TSH #### [facility] [address] [place] [address] Dr. Hugh Landis PLT 249 103/ul Normal 150-450 [facility] Comment on above: Performed By: #### C MP, LIPID, TSH #### [facility] [address] [place] [address] Dr. Hugh Landis RBC 4.14 106/ul Critically low 4.70-6.10 [facility] Comment on above: Performed By: #### C MP, LIPID, TSH #### [facility] [address] [place] [address] Dr. Hugh Landis WBC 6.9 103/ul Normal 4.0-11.0 [facility] Comment on above: Performed By: #### C MP, LIPID, TSH #### [facility] [address] [place] [address] Dr. Hugh Landis FERRITINon 08-08-2021 Ferritin [Mass/Vol] 154.0 ng/mL Normal 26.0-388.0 [facility] Comment on above: Performed By: #### C MP, LIPID, TSH #### [facility] [address] [place] [address] Dr. Hugh Landis GLYCOHEMOGLOBIN A1Con 2021 ADA RECOMMENDATION SEE BELOW Normal [facility] Comment on above: Result Comment: ADA RECOMMENDED LIMIT 4.0 - 6.0 ADA THERAPEUTIC TARGET < 7.0 ACTION SUGGESTED > 7.0 Performed By: #### P T #### [facility] [address] [address] [address] Hugh Landis Glucose [Mass/Vol] 140 mg/dL Normal [facility] Comment on above: Performed By: #### P T #### [facility] [address] [address] [address] Hugh Landis HbA1c (Bld) [Mass fraction] 6.5 % Critically high 4.5-6.2 [facility] Comment on above: Performed By: #### P T #### [facility] [address] [address] [address] Hugh Landis IRON AND TIBCon 08-08-2021 % SATURATION 13.6 % Normal [facility] Comment on above: Performed By: #### C MP, LIPID, TSH #### [facility] [address] [address] [address] Hugh Landis Iron [Mass/Vol] 45.0 ug/dL Critically low 65.0-175.0 [facility] Comment on above: Performed By: #### C MP, LIPID, TSH #### [facility] [address] [address] [address] Hugh Landis TIBC DIRECT 332.0 ug/dL Normal 250.0-450.0 [facility] Comment on above: Performed By: #### C MP, LIPID, TSH #### [facility] [address] [address] [address] Hugh Landis LIPID PROFILEon 08-08-2021 CHOL-HDL RATIO NORM SEE BELOW Normal [facility] Comment on above: Result Comment: 3.3 - 4.4 LOW RISK 4.4 - 7.1 AVERAGE RISK 7.1 - 11.0 MODERATE RISK >11.0 HIGH RISK Performed By: #### C MP, LIPID, TSH #### [facility] [address] [address] [address] Hugh Landis Cholesterol [Mass/Vol] 187 mg/dL Normal <=200 [facility] Comment on above: Performed By: #### C MP, LIPID, TSH #### [facility] [address] [address] [address] Hugh Landis Cholesterol in HDL [Mass/Vol] 51 mg/dL Normal 40-60 [facility] Comment on above: Performed By: #### C MP, LIPID, TSH #### [facility] [address] [address] [address] Hugh Landis Cholesterol in LDL [Mass/Vol] 101.8 mg/dL Normal [facility] Comment on above: Performed By: #### C MP, LIPID, TSH #### [facility] [address] [address] [address] Hugh Landis Cholesterol.total/Ch olesterol in HDL [Mass ratio] 3.7 {ratio} Normal [facility] Comment on above: Performed By: #### C MP, LIPID, TSH #### [facility] [address] [address] [address] Hugh Landis HDL NORMAL > or = 60 mg/dl - LO W CARDIOVASCULAR RISK <40 mg/dl - HIGH CARDIOVASCULAR RISK Normal [facility] Comment on above: Performed By: #### C MP, LIPID, TSH #### [facility] [address] [address] [address] Hugh Landis LDL CALC NORMAL SEE BELOW Normal [facility] Comment on above: Result Comment: <100 mg/dl OPTIMAL 100 - 129 mg/dl NEAR OR ABOVE OPTIMAL 130 - 159 mg/dl BORDERLINE HIGH 160 - 189 mg/dl HIGH >190 mg/dl VERY HIGH Performed By: #### C MP, LIPID, TSH #### [facility] [address] [address] [address] Hugh Landis Triglyceride [Mass/Vol] 171 mg/dL Critically high <=150 [facility] Comment on above: Performed By: #### C MP, LIPID, TSH #### [facility] [address] [address] [address] Hugh Landis VLDL CALC 34.2 mg/dL Normal [facility] Comment on above: Performed By: #### C MP, LIPID, TSH #### [facility] [address] [address] [address] Hugh Landis PROF 14(COMP METB)on 022 Albumin [Mass/Vol] 3.6 g/dL Normal 3.4-5.0 [facility] Comment on above: Performed By: #### C MP, LIPID, TSH #### [facility] [address] [address] [address] Hugh Landis Albumin/Globulin [Mass ratio] 0.8 {ratio} Normal [facility] Comment on above: Performed By: #### C MP, LIPID, TSH #### [facility] [address] [address] [address] Hugh Landis ALP [Catalytic activity/Vol] 64 U/L Normal 46-116 [facility] Comment on above: Performed By: #### C MP, LIPID, TSH #### [facility] [address] [address] [address] Hugh Landis ALT [Catalytic activity/Vol] 28 U/L Normal 16-63 [facility] Comment on above: Performed By: #### C MP, LIPID, TSH #### [facility] [address] [address] [address] Hugh Landis Anion gap [Moles/Vol] 15.0 mmol/L Normal [facility] Comment on above: Performed By: #### C MP, LIPID, TSH #### [facility] [address] [address] [address] Hugh Landis AST [Catalytic activity/Vol] 14 U/L Critically low 15-37 [facility] Comment on above: Performed By: #### C MP, LIPID, TSH #### [facility] [address] [address] [address] Hugh Landis Bilirubin [Mass/Vol] 0.5 mg/dL Normal 0.2-1.0 [facility] Comment on above: Performed By: #### C MP, LIPID, TSH #### [facility] [address] [address] [address] Hugh Landis Calcium [Mass/Vol] 9.6 mg/dL Normal 8.5-10.1 [facility] Comment on above: Performed By: #### C MP, LIPID, TSH #### [facility] [address] [address] [address] Hugh Landis Chloride [Moles/Vol] 105 mmol/L Normal 98-107 [facility] Comment on above: Performed By: #### C MP, LIPID, TSH #### [facility] [address] [address] [address] Hugh Landis CO2 [Moles/Vol] 23.5 mmol/L Normal 21.0-32.0 [facility] Comment on above: Performed By: #### C MP, LIPID, TSH #### [facility] [address] [address] [address] Hugh Landis Creatinine [Mass/Vol] 2.69 mg/dL Critically high 0.70-1.30 [facility] Comment on above: Performed By: #### C MP, LIPID, TSH #### [facility] [address] [address] [address] Hugh Landis EGFR-AF TURKMEN 30 mL/min/1.73m2 Critically low >=60 [facility] Comment on above: Performed By: #### C MP, LIPID, TSH #### [facility] [address] [address] [address] Hugh Landis EGFR-NON AF TURKMEN 25 mL/min/1.73m2 Critically low >=60 [facility] Comment on above: Performed By: #### C MP, LIPID, TSH #### [facility] [address] [address] [address] Hugh Landis Globulin (S) [Mass/Vol] 4.3 g/dL Normal [facility] Comment on above: Performed By: #### C MP, LIPID, TSH #### [facility] [address] [address] [address] Hugh Landis Glucose [Mass/Vol] 80 mg/dL Normal 74-106 [facility] Comment on above: Performed By: #### C MP, LIPID, TSH #### [facility] [address] [address] [address] Hugh Landis Potassium [Moles/Vol] 5.5 mmol/L Critically high 3.5-5.1 [facility] Comment on above: Performed By: #### C MP, LIPID, TSH #### [facility] [address] [place] [address] Dr. Hugh Landis Protein [Mass/Vol] 7.9 g/dL Normal 6.4-8.2 [facility] Comment on above: Performed By: #### C MP, LIPID, TSH #### [facility] [address] [place] [address] Dr. Hugh Landis Sodium [Moles/Vol] 138 mmol/L Normal 136-145 [facility] Comment on above: Performed By: #### C MP, LIPID, TSH #### [facility] [address] [place] [address] Dr. Hugh Landis Urea nitrogen [Mass/Vol] 47.0 mg/dL Critically high 7.0-18.0 [facility] Comment on above: Performed By: #### C MP, LIPID, TSH #### [facility] [address] [place] [address] Dr. Hugh Landis Urea nitrogen/Creatinine [Mass ratio] 17.5 mg/mg Normal [facility] Comment on above: Performed By: #### C MP, LIPID, TSH #### [facility] [address] [place] [address] Dr. Hugh Landis TSHon 08-08-2021 TSH 1.069 uIU/mL Normal 0.358-3.740 [facility] Comment on above: Performed By: #### C MP, LIPID, TSH #### [facility] [address] [place] [address] Dr. Hugh Landis TSH RANGE SEE BELOW Normal [facility] Comment on above: Result Comment: <0.3 4 UIU/ml HYPERTHYROID 0.34-5.60 UIU/ml EUTHYROID >5.60 UIU/ml HYPOTHYROID Performed By: #### C MP, LIPID, TSH #### [facility] [address] [place] [address] Dr. Hugh Landis VITAMIN B12on 08-08-2021 Cobalamin (Vitamin B12) [Mass/Vol] 336.0 pg/mL Normal 193.0-986.0 [facility] Comment on above: Performed By: #### C MP, LIPID, TSH #### [facility] [address] [place], [place] [id number] Dr. Hugh Landis VITAMIN D 25 OHon 08-08-2021 VIT D 25-OH 36.6 ng/mL Normal [facility] Comment on above: Performed By: #### C MP, LIPID, TSH #### [facility] [address] [place], [place] [id number] Dr. Hugh Landis VIT D RANGES SEE BELOW Normal [facility] Comment on above: Result Comment: <20 ng/mL Vit D deficient 20 - <30 ng/mL Vit D insufficient 30 - 100 ng/mL Vit D sufficient >100 ng/mL Potential Toxicity Performed By: #### C MP, LIPID, TSH #### [facility] [address] [place] [address] Dr. Hugh Landis KNEE RIGHT 3 Son 2 KNEE RIGHT 3 [facility] Department of Radiology [address] [place] [id number] ======== Patient Name: SUKHDEEP SIMENTAL : [...] disruption. Electronically signed: Cole Richmond. Transcribed by: [email or web address], User Resident: Electronically Signed by: COLE RICHMOND @ 07/23/2021 10:50 PM Normal [facility] Comment on above: Order Comment: Evalu ate CBCon 07-18-2021 Erythrocyte distribution width (RBC) [Ratio] 13.5 % Normal 11.8-14.4 [facility] Comment on above: Performed By: #### C BC, PT, PTT, BMP #### [employer] [address] [place] [id number] Physician Obstetrician: Good Melendez MD #### ANICOT #### [facility] [address] [place], [place] [id number] Physician Obstetrician: Troy Link MD Hematocrit (Bld) [Volume fraction] 39.1 % Low 40.7-50.3 [facility] Comment on above: Performed By: #### C BC, PT, PTT, BMP #### [employer] [address] [place] [id number] Physician Obstetrician: Good Melendez MD #### ANICOT #### [facility] [address] [place], [place] [id number] Physician Obstetrician: Troy Link MD Hemoglobin (Bld) [Mass/Vol] 12.3 g/dL Low 13.0-17.0 [facility] Comment on above: Performed By: #### C BC, PT, PTT, BMP #### [address] [id number] Physician Obstetrician: Good Melendez MD #### ANICOT #### [facility] [address] [place], [place] [id number] Physician Obstetrician: Troy Link MD MCH (RBC) [Entitic mass] 28.8 pg Normal 25.2-33.5 [facility] Comment on above: Performed By: #### C BC, PT, PTT, BMP #### [address] [id number] Physician Obstetrician: Good Melendez MD #### ANICOT #### [facility] [address] [place], [place] [id number] Physician Obstetrician: Troy Link MD MCHC (RBC) [Mass/Vol] 31.5 g/dL Normal 28.4-34.8 [facility] Comment on above: Performed By: #### C BC, PT, PTT, BMP #### [address] [id number] Physician Obstetrician: Good Melendez MD #### ANICOT #### [facility] [address] [place], [place] [id number] Physician Obstetrician: Troy Link MD MCV (RBC) [Entitic vol] 91.6 fL Normal 82.6-102.9 [facility] Comment on above: Performed By: #### C BC, PT, PTT, BMP #### [address] [id number] Physician Obstetrician: Good Melendez MD #### ANICOT #### [facility] [address] [place] [address] Physician Obstetrician: Troy Link MD NRBC Automated 0.0 per 100 WBC Normal 0.0 [facility] Comment on above: Performed By: #### C BC, PT, PTT, BMP #### [address] [address] Physician Obstetrician: Good Melendez MD #### ANICOT #### [facility] [address] [place] [address] Physician Obstetrician: Troy Link MD Platelet mean volume (Bld) [Entitic vol] 9.7 fL Normal 8.1-13.5 [facility] Comment on above: Performed By: #### C BC, PT, PTT, BMP #### [place] [address] Physician Obstetrician: Good Melendez MD #### ANICOT #### [facility] [address] [place] [address] Physician Obstetrician: Troy Link MD Platelets (Bld) [#/Vol] 190 10*3/uL Normal 138-453 [facility] Comment on above: Performed By: #### C BC, PT, PTT, BMP #### [address] [address] Physician Obstetrician: Good Melendez MD #### ANICOT #### [facility] [address] [place] [address] Physician Obstetrician: Troy Link MD RBC (Bld) [#/Vol] 4.27 10*6/uL Normal 4.21-5.77 [facility] Comment on above: Performed By: #### C BC, PT, PTT, BMP #### [address] [id number] Physician Obstetrician: Good Melendez MD #### ANICOT #### [facility] [address] [place], [place] [id number] Physician Obstetrician: Troy Link MD WBC (Bld) [#/Vol] 8.7 10*3/uL Normal 3.5-11.3 [facility] Comment on above: Performed By: #### C BC, PT, PTT, BMP #### [facility] [address] [place] [address] Physician Obstetrician: Good Melendez MD #### ANICOT #### [facility] [address] [place], [place] [id number] Physician Obstetrician: Troy Link MD APTTon 07-17-2021 aPTT Coag (Bld) [Time] 20.8 s Normal 20.5-30.5 [facility] Comment on above: Result Comment: IV Heparin Therapy Range: 48.6-77.8 Performed By: #### C BC, PT, PTT, BMP #### [address] [address] Physician Obstetrician: Good Melendez MD #### ANICOT #### [facility] [address] [place], [place] [id number] Physician Obstetrician: Troy Link MD aPTT Coag (Bld) [Time] 37.9 s High 20.5-30.5 [facility] Comment on above: Result Comment: IV Heparin Therapy Range: 48.6-77.8 Performed By: #### C BC, PT, PTT, BMP #### [address] [address] Physician Obstetrician: Good Melendez MD #### ANICOT #### [facility] [address] [place], [place] [id number] Physician Obstetrician: Troy Link MD aPTT Coag (Bld) [Time] 78.1 s High 20.5-30.5 [facility] Comment on above: Result Comment: IV Heparin Therapy Range: 48.6-77.8 Performed By: #### C BC, PT, PTT, BMP #### [address] [phone] Physician Obstetrician: Good Melendez MD #### ANICOT #### [facility] [address] [place], [place] [id number] Physician Obstetrician: Troy Link MD Basic Metab w/rfx MGon 07-17 (cont.) Normal [facility] Comment on above: Result Comment: Aver age GFR for 50-59 years old: 93 mL/min/1.73sq m Chronic Kidney Disease: <60 mL/min/1.73sq m Kidney failure: <15 mL/min/1.73sq m eGFR calculated using average adult body mass. Additional eGFR calculator available at: http://[email or web address].Zenring/multiple_crcl_2011.htm Performed By: #### C BC, PT, PTT, BMP #### [address] [phone] Physician Obstetrician: Good Melendez MD #### ANAPARNAT #### [facility] [address] [place] [address] Physician Obstetrician: Troy Link MD Anion gap [Moles/Vol] 9 mmol/L Normal 9-17 [facility] Comment on above: Performed By: #### C BC, PT, PTT, BMP #### [facility] [employer] [address] [place] [address] Physician Obstetrician: Good Melendez MD #### ANICOT #### [facility] [address] [place] [address] Physician Obstetrician: Troy Link MD Calcium [Mass/Vol] 9.3 mg/dL Normal 8.6-10.4 [facility] Comment on above: Performed By: #### C BC, PT, PTT, BMP #### [address] [address] Physician Obstetrician: Good Melendez MD #### ANICOT #### [facility] [address] [place] [address] Physician Obstetrician: Troy Link MD Chloride [Moles/Vol] 106 mmol/L Normal 98-[address] [facility] Comment on above: Performed By: #### C BC, PT, PTT, BMP #### [address] [address] Physician Obstetrician: Good Melendez MD #### ANICOT #### [address] [address] Physician Obstetrician: Troy Link MD CO2 [Moles/Vol] 23 mmol/L Normal 20-31 [facility] Comment on above: Performed By: #### C BC, PT, PTT, BMP #### [address] [address] Physician Obstetrician: Good Melendez MD #### ANICOT #### [facility] [address] [place] [address] Physician Obstetrician: Troy Link MD Creatinine [Mass/Vol] 1.40 mg/dL High 0.70-1.20 [facility] Comment on above: Performed By: #### C BC, PT, PTT, BMP #### [address] [address] Physician Obstetrician: Good Melendez MD #### ANICOT #### [facility] [address] [place] [address] Physician Obstetrician: Troy Link MD GFR, Amer >60 Normal >60 [facility] Comment on above: Performed By: #### C BC, PT, PTT, BMP #### [address] [place] [address] Physician Obstetrician: Good Melendez MD #### ANICOT #### [facility] [address] [place] [address] Physician Obstetrician: Troy Link MD GFR,non Amer 52 mL/min Low >[address] [facility] Comment on above: Performed By: #### C BC, PT, PTT, BMP #### [address] [address] Physician Obstetrician: Good Melendez MD #### ANICOT #### [facility] [address] [place] [address] Physician Obstetrician: Troy Link MD Glucose [Mass/Vol] 170 mg/dL High 70-99 [facility] Comment on above: Performed By: #### C BC, PT, PTT, BMP #### [address] [address] Physician Obstetrician: Good Melendez MD #### ANICOT #### [facility] [address] [place] [address] Physician Obstetrician: Troy Link MD Potassium [Moles/Vol] 4.6 mmol/L Normal 3.7-5.3 [facility] Comment on above: Performed By: #### C BC, PT, PTT, BMP #### [address] [address] Physician Obstetrician: Good Melendez MD #### ANICOT #### [facility] [address] [place] [address] Physician Obstetrician: Troy Link MD Sodium [Moles/Vol] 138 mmol/L Normal 135-144 [facility] Comment on above: Performed By: #### C BC, PT, PTT, BMP #### [facility] [address] [place] [address] Physician Obstetrician: Good Melendez MD #### ANICOT #### [facility] [address] [place] [address] Physician Obstetrician: Troy Link MD Urea nitrogen [Mass/Vol] 33 mg/dL High 6-20 [facility] Comment on above: Performed By: #### C BC, PT, PTT, BMP #### [address] [id number] Physician Obstetrician: Good Melendez MD #### ANICOT #### [facility] [address] [place] [address] Physician Obstetrician: Troy Link MD Basic Metabolic Profon 07-17 (cont.) Normal [facility] Comment on above: Result Comment: Aver age GFR for 50-59 years old: 93 mL/min/1.73sq m Chronic Kidney Disease: <60 mL/min/1.73sq m Kidney failure: <15 mL/min/1.73sq m eGFR calculated using average adult body mass. Additional eGFR calculator available at: http://www.Indelsul.com/multiple_crcl_2011.htm Performed By: #### C BC, PT, PTT, BMP #### [address] [id number] Physician Obstetrician: Good Melendez MD #### ANICOT #### [facility] [address] [place], [place] [id number] Physician Obstetrician: Troy Link MD Anion gap [Moles/Vol] 8 mmol/L Low 9-17 [facility] Comment on above: Performed By: #### C BC, PT, PTT, BMP #### [address] [address] Physician Obstetrician: Good Melendez MD #### ANICOT #### [facility] [address] [place], [place] [id number] Physician Obstetrician: Troy Link MD Calcium [Mass/Vol] 9.5 mg/dL Normal 8.6-10.4 [facility] Comment on above: Performed By: #### C BC, PT, PTT, BMP #### [address] [address] Physician Obstetrician: Good Melendez MD #### ANICOT #### [facility] [address] [place], [place] [id number] Physician Obstetrician: Troy Link MD Chloride [Moles/Vol] 104 mmol/L Normal 98-[address] [facility] Comment on above: Performed By: #### C BC, PT, PTT, BMP #### [address] [id number] Physician Obstetrician: Good Melendez MD #### ANICOT #### [facility] [address] [place], [place] [id number] Physician Obstetrician: Troy Link MD CO2 [Moles/Vol] 23 mmol/L Normal 20-31 [facility] Comment on above: Performed By: #### C BC, PT, PTT, BMP #### [address] [address] Physician Obstetrician: Good Melendez MD #### ANICOT #### [facility] [address] [place] [address] Physician Obstetrician: Troy Link MD Creatinine [Mass/Vol] 1.34 mg/dL High 0.70-1.20 [facility] Comment on above: Performed By: #### C BC, PT, PTT, BMP #### [address] [address] Physician Obstetrician: Good Melendez MD #### ANICOT #### [facility] [address] [place] [address] Physician Obstetrician: Troy Link MD GFR, Amer >60 Normal >60 [facility] Comment on above: Performed By: #### C BC, PT, PTT, BMP #### [address] [id number] Physician Obstetrician: Good Melendez MD #### ANICOT #### [facility] [address] [place], [place] [id number] Physician Obstetrician: Troy Likn MD GFR,non Amer 55 mL/min Low >[address] [facility] Comment on above: Performed By: #### C BC, PT, PTT, BMP #### [address] [id number] Physician Obstetrician: Good Melendez MD #### ANICOT #### [facility] [address] [place] [address] Physician Obstetrician: Troy Link MD Glucose [Mass/Vol] 136 mg/dL High 70-99 [facility] Comment on above: Performed By: #### C BC, PT, PTT, BMP #### [address] [id number] Physician Obstetrician: Good Melendez MD #### ANICOT #### [facility] [address] [place] [address] Physician Obstetrician: Troy Link MD Potassium [Moles/Vol] 4.7 mmol/L Normal 3.7-5.3 [facility] Comment on above: Performed By: #### C BC, PT, PTT, BMP #### [address] [address] Physician Obstetrician: Good Melendez MD #### ANICOT #### [facility] [address] [place], [place] [id number] Physician Obstetrician: Troy Link MD Sodium [Moles/Vol] 135 mmol/L Normal 135-144 [facility] Comment on above: Performed By: #### C BC, PT, PTT, BMP #### [facility] [address] [place] [address] Physician Obstetrician: Good Melendez MD #### ANICOT #### [facility] [address] [place] [address] Physician Obstetrician: Troy Link MD Urea nitrogen [Mass/Vol] 31 mg/dL High 6-20 [facility] Comment on above: Performed By: #### C BC, PT, PTT, BMP #### [address] [address] Physician Obstetrician: Good Melendez MD #### ANICOT #### [facility] [address] [place], [place] [id number] Physician Obstetrician: Troy Link MD Fibrinogenon 07-17-2021 Fibrinogen 404 mg/dL Normal 140-420 [facility] Comment on above: Performed By: #### C BC, PT, PTT, BMP #### [address] [address] Physician Obstetrician: Good Melendez MD #### ANICOT #### [facility] [address] [place], [place] [id number] Physician Obstetrician: Troy Link MD Fibrinogen 395 mg/dL Normal 140-420 [facility] Comment on above: Performed By: #### C BC, PT, PTT, BMP #### [facility] [address] [place] [address] Physician Obstetrician: Good Melendez MD #### ANICOT #### [facility] [address] [place] [address] Physician Obstetrician: Troy Link MD Hemoglobin A1Con 07-17-2021 Glucose [Mass/Vol] 169 mg/dL Normal [facility] Comment on above: Result Comment: The ADA and AACC recommend providing the estimated average glucose result to permit better patient understanding of their HBA1c result. Performed By: #### C BC, PT, PTT, BMP #### [facility] [employer] [address] [place] [address] Physician Obstetrician: Good Melendez MD #### ANICOT #### [facility] [address] [place], [place] [id number] Physician Obstetrician: Troy Link MD HbA1c (Bld) [Mass fraction] 7.5 % High 4.0-6.0 [facility] Comment on above: Performed By: #### C BC, PT, PTT, BMP #### [facility] [employer] [address] [place] [address] Physician Obstetrician: Good Melendez MD #### ANICOT #### [facility] [address] [place] [address] Physician Obstetrician: Troy Link MD PTon 07-17-2021 INR Coag (PPP) [Relative time] 1.2 {INR} Normal [facility] Comment on above: Result Comment: Therapeutic Range: Moderate Anticoagulant Intensity: INR = 2.0-3.0 High Anticoagulant Intensity: INR = 2.5-3.5 Performed By: #### C BC, PT, PTT, BMP #### [facility] [address] [place] [address] Physician Obstetrician: Good Melendez MD #### ANICOT #### [facility] [address] [place], [place] [id number] Physician Obstetrician: Troy Link MD PT Coag (PPP) [Time] 12.6 s High 9.1-12.[address] [facility] Comment on above: Performed By: #### C BC, PT, PTT, BMP #### [facility] [address] [place] [address] Physician Obstetrician: Good Melendez MD #### ANICOT #### [facility] [address] [place], [place] [id number] Physician Obstetrician: Troy Link MD Troponinon 07-17-2021 Troponin, High Sens 38 ng/L High 0-22 [facility] Comment on above: Result Comment: High Sensitivity Troponin values cannot be compared with other Troponin methodologies. Patients with high levels of Biotin oral intake (i.e >5mg/day) may have falsely decreased Troponin levels. Samples collected within 8 hours of biotin intake may require additional information for diagnosis. Performed By: #### C BC, PT, PTT, BMP #### [facility] [address] [place] [address] Physician Obstetrician: Good Melendez MD #### ANICOT #### [facility] [address] [place], [place] [id number] Physician Obstetrician: Troy Link MD APTTon 07-16-2021 aPTT Coag (Bld) [Time] 51.1 s High 20.5-30.5 [facility] Comment on above: Result Comment: IV Heparin Therapy Range: 48.6-77.8 Performed By: #### C BC, PT, PTT, BMP #### [facility] [address] [place] [address] Physician Obstetrician: Good Melendez MD #### ANICOT #### [facility] [address] [place], [place] [id number] Physician Obstetrician: Troy Link MD aPTT Coag (Bld) [Time] 31.1 s High 20.5-30.5 [facility] Comment on above: Result Comment: IV Heparin Therapy Range: 48.6-77.8 Performed By: #### C BC, PT, PTT, BMP #### [facility] [address] [place] [address] Physician Obstetrician: Good Melendez MD #### ANICOT #### [facility] [address] [place], [place] [id number] Physician Obstetrician: Troy Link MD Brain Natri. Peptideon 07-16 Natriuretic peptide B (Bld) [Mass/Vol] 1492 pg/mL High <300 [facility] Comment on above: Result Comment: An age-independent cutoff point of 300 pg/ml has a 98% negative predictive value excluding acute heart failure. Performed By: #### C BC, PT, PTT, BMP #### [facility] [address] [place] [address] Physician Obstetrician: Good Melendez MD #### ANICOT #### [facility] [address] [place], [place] [id number] Physician Obstetrician: Troy Link [facility] Erythrocyte distribution width (RBC) [Ratio] 13.6 % Normal 11.8-14.4 [facility] Comment on above: Performed By: #### C BC, PT, PTT, BMP #### [facility] [address] [place] [address] Physician Obstetrician: Good Melendez MD #### ANICOT #### [facility] [address] [place] [address] Physician Obstetrician: Troy Link MD Hematocrit (Bld) [Volume fraction] 40.3 % Low 40.7-50.3 [facility] Comment on above: Performed By: #### C BC, PT, PTT, BMP #### [facility] [address] [place] [address] Physician Obstetrician: Good Melendez MD #### ANICOT #### [facility] [address] [place] [address] Physician Obstetrician: Troy Link MD Hemoglobin (Bld) [Mass/Vol] 13.0 g/dL Normal 13.0-17.0 [facility] Comment on above: Performed By: #### C BC, PT, PTT, BMP #### [facility] [address] [place] [address] [phone] Physician Obstetrician: Good Melendez MD #### ANICOT #### [facility] [address] [place] [address] Physician Obstetrician: Troy Link MD MCH (RBC) [Entitic mass] 28.7 pg Normal 25.2-33.5 [facility] Comment on above: Performed By: #### C BC, PT, PTT, BMP #### [address] [address] Physician Obstetrician: Good Melendez MD #### ANICOT #### [facility] [address] [place] [address] Physician Obstetrician: Troy Link MD MCHC (RBC) [Mass/Vol] 32.3 g/dL Normal 28.4-34.8 [facility] Comment on above: Performed By: #### C BC, PT, PTT, BMP #### [address] [address] Physician Obstetrician: Good Melendez MD #### ANICOT #### [address] [address] Physician Obstetrician: Troy Link MD MCV (RBC) [Entitic vol] 89.0 fL Normal 82.6-102.9 [facility] Comment on above: Performed By: #### C BC, PT, PTT, BMP #### [address] [address] Physician Obstetrician: Good Melendez MD #### ANICOT #### [facility] [address] [place] [address] Physician Obstetrician: Troy Link MD NRBC Automated 0.0 per 100 WBC Normal 0.0 [facility] Comment on above: Performed By: #### C BC, PT, PTT, BMP #### [facility] [address] Physician Obstetrician: Good Melendez MD #### ANICOT #### [facility] [address] [place] [address] Physician Obstetrician: Troy Link MD Platelet mean volume (Bld) [Entitic vol] 9.6 fL Normal 8.1-13.5 [facility] Comment on above: Performed By: #### C BC, PT, PTT, BMP #### [address] [address] Physician Obstetrician: Good Melendez MD #### ANICOT #### [facility] [address] [place] [address] Physician Obstetrician: Troy Link MD Platelets (Bld) [#/Vol] 203 10*3/uL Normal 138-453 [facility] Comment on above: Performed By: #### C BC, PT, PTT, BMP #### [address] [address] Physician Obstetrician: Good Melendez MD #### ANICOT #### [facility] [address] [place] [address] Physician Obstetrician: Troy Link MD RBC (Bld) [#/Vol] 4.53 10*6/uL Normal 4.21-5.77 [facility] Comment on above: Performed By: #### C BC, PT, PTT, BMP #### [address] [address] Physician Obstetrician: Good Melendez MD #### ANICOT #### [facility] [address] [place] [address] Physician Obstetrician: Troy Link MD WBC (Bld) [#/Vol] 6.8 10*3/uL Normal 3.5-11.3 [facility] Comment on above: Performed By: #### C BC, PT, PTT, BMP #### [facility] [address] [place] [address] Physician Obstetrician: Good Melendez MD #### YASSINET #### [facility] [address] [place], [place] [id number] Physician Obstetrician: Troy Link MD Troponinon 07-16-2021 Troponin, High Sens 59 ng/L Critically high 0-22 [facility] Comment on above: Result Comment: High Sensitivity Troponin values cannot be compared with other Troponin methodologies. Patients with high levels of Biotin oral intake (i.e >5mg/day) may have falsely decreased Troponin levels. Samples collected within 8 hours of biotin intake may require additional information for diagnosis. Performed By: #### C BC, PT, PTT, BMP #### [employer] [address] [place] [address] Physician Obstetrician: Good Melendez MD #### YASSINET #### [facility] [address] [place] [address] Physician Obstetrician: Troy Link MD EKG 12 LeadOrdered By: Matias Varela on 05-26-2021 Atrial Rate 108 BPM [employer] Phone: P Mora -96 degrees [employer] Phone: P-R Interval 192 ms [employer] Phone: Q-T Interval 348 ms [employer] Phone: QRS Duration 94 ms [employer] Phone: QTc Calculation (Bazett) 466 ms [employer] Phone: R Mora -116 degrees [employer] Phone: T Mora -114 degrees [employer] Phone: Ventricular Rate 108 BPM [employer] Work Phone: [employer] Phone: EKG 12 Leadon 05-26-2021 Arm lead reversal Sinus Tachycardia V Leads placement error Repeat ECG When compared with ECG of 08-MAY-2021 11:42, Significant changes have occurred PN STV Matias Andrade MD - 05/26/2021 Arm lead reversal Sinus Tachycardia V Leads placement error Repeat ECG When compared with ECG of 08-MAY-2021 11:42, Significant changes have occurred [employer] Work Phone: SURGICAL PATHOLOGY REPORTon 05-26-2021 Surgical [...] with no areas of granularity or masses. Clod Puller sections 1cs. tm Microscopic Description Sections of gastric wall show lamina propria without evidence of significant inflammation. There is no evidence of intestinal metaplasia or dysplasia. There is no evidence of organisms suspicious for Helicobacter with the routine H&E stain. SURGICAL PATHOLOGY CONSULTATION Patient Name: SUKHDEEP SIMENTAL [facility] Rec: [id number] Path Number: [id number] [facility] ANATOMIC PATHOLOGY [address] [place] [address]. [place], [place] [address] [facility] [place] [employer] Basic Metabolic Panelon 03-3 Anion gap [Moles/Vol] 10 mmol/L 9 - 17 mmol/L [employer] Calcium [Mass/Vol] 9.1 mg/dL 8.6 - 10. 4 mg/dL [facility] Chloride [Moles/Vol] 106 mmol/L 98 - 10 7 mmol/L [employer] CO2 [Moles/Vol] 23 mmol/L 20 - 31 mmol/L [employer] Creatinine [Mass/Vol] 1.1 mg/dL 0.70 - 1.20 mg/dL [facility] GFR >60 >60 mL/min [employer] GFR Non- >60 >60 mL/min [facility] [place] [employer] GFR/1.73 sq M.predicted MDRD (S/P/Bld) [Vol rate/Area] [facility] Comment on above: Average GFR for 50-5 9 years old: 93 mL/min/1.73sq m Chronic Kidney Disease: <60 mL/min/1.73sq m Kidney failure: <15 mL/min/1.73sq m eGFR calculated using average adult body mass. Additional eGFR calculator available at: http://www.Project 2020/Swivel_crcl_2012.htm Glucose [Mass/Vol] 127 mg/dL High 70 - 99 mg/dL [facility] [place] [employer] Interpretation and review of laboratory results Abnormal [facility] Potassium [Moles/Vol] 4.8 mmol/L 3.7 - 5.3 mmol/L [employer] Sodium [Moles/Vol] 139 mmol/L 135 - 144 mmol/L [facility] [place] [employer] Urea nitrogen (BldV) [Mass/Vol] 24 mg/dL High 6 - 20 mg/dL [facility] [place] [employer] Basic Metabolic Profon 05-25 (cont.) Normal [facility] Comment on above: Result Comment: Aver age GFR for 50-59 years old: 93 mL/min/1.73sq m Chronic Kidney Disease: <60 mL/min/1.73sq m Kidney failure: <15 mL/min/1.73sq m eGFR calculated using average adult body mass. Additional eGFR calculator available at: http://www.Project 2020/Swivel_crcl_2012.htm Performed By: #### C BC, PT, PTT, BMP #### [employer] [address] [place], [place] [id number] Physician Obstetrician: Good Melendez MD #### JIMENA #### [facility] [address] [place] [address] Physician Obstetrician: Troy Link MD Anion gap [Moles/Vol] 10 mmol/L Normal - [facility] Comment on above: Performed By: #### C BC, PT, PTT, BMP #### [facility] [address] [place] [address] Physician Obstetrician: Good Melendez MD #### ANICOT #### [facility] [address] [place], [place] [id number] Physician Obstetrician: Troy Link MD Calcium [Mass/Vol] 9.1 mg/dL Normal 8.6-10.4 [facility] Comment on above: Performed By: #### C BC, PT, PTT, BMP #### [address] [address] Physician Obstetrician: Good Melendez MD #### ANICOT #### [address] [id number] Physician Obstetrician: Troy Link MD Chloride [Moles/Vol] 106 mmol/L Normal 98-[address] [facility] Comment on above: Performed By: #### C BC, PT, PTT, BMP #### [address] [address] Physician Obstetrician: Good Melendez MD #### ANICOT #### [address] [id number] Physician Obstetrician: Troy Link MD CO2 [Moles/Vol] 23 mmol/L Normal 20-31 [facility] Comment on above: Performed By: #### C BC, PT, PTT, BMP #### [address] [address] Physician Obstetrician: Good Melendez MD #### ANICOT #### [facility] [address] [place], [place] [id number] Physician Obstetrician: Troy Link MD Creatinine [Mass/Vol] 1.10 mg/dL Normal 0.70-1.20 [facility] Comment on above: Performed By: #### C BC, PT, PTT, BMP #### [facility] [address] [place] [address] Physician Obstetrician: Good Melendez MD #### ANICOT #### [facility] [address] [place], [place] [id number] Physician Obstetrician: Troy Link MD GFR, Amer >60 Normal >60 [facility] Comment on above: Performed By: #### C BC, PT, PTT, BMP #### [facility] [address] [place] [address] Physician Obstetrician: Good Melendez MD #### ANICOT #### [facility] [address] [place] [address] Physician Obstetrician: Troy Link MD GFR,non Amer >60 Normal >[address] [facility] Comment on above: Performed By: #### C BC, PT, PTT, BMP #### [address] [address] Physician Obstetrician: Good Melendez MD #### ANICOT #### [facility] [address] [place] [address] Physician Obstetrician: Troy Link MD Glucose [Mass/Vol] 127 mg/dL High 70-99 [facility] Comment on above: Performed By: #### C BC, PT, PTT, BMP #### [facility] [address] [place] [address] Physician Obstetrician: Good Melendez MD #### ANICOT #### [facility] [address] [place] [address] Physician Obstetrician: Troy Link MD Potassium [Moles/Vol] 4.8 mmol/L Normal 3.7-5.3 [facility] Comment on above: Performed By: #### C BC, PT, PTT, BMP #### [facility] [address] [place] [address] [id number] Physician Obstetrician: Godo Melendez MD #### ANICOT #### [facility] [address] [place] [address] Physician Obstetrician: Troy Link MD Sodium [Moles/Vol] 139 mmol/L Normal 135-144 [facility] Comment on above: Performed By: #### C BC, PT, PTT, BMP #### [address] [address] Physician Obstetrician: Good Melendez MD #### ANICOT #### [facility] [address] [place] [address] Physician Obstetrician: Troy Link MD Urea nitrogen [Mass/Vol] 24 mg/dL High 6-20 [facility] Comment on above: Performed By: #### C BC, PT, PTT, BMP #### [address] [address] Physician Obstetrician: Good Melendez MD #### ANICOT #### [facility] [address] [place] [address] Physician Obstetrician: Troy Link [facility] Erythrocyte distribution width (RBC) [Ratio] 13.9 % Normal 11.8-14.4 [facility] Comment on above: Performed By: #### C BC, PT, PTT, BMP #### [facility] [address] [place] [address] Physician Obstetrician: Good Melendez MD #### ANICOT #### [facility] [address] [place] [address] Physician Obstetrician: Troy Link MD Hematocrit (Bld) [Volume fraction] 39.5 % Low 40.7-50.3 [facility] Comment on above: Performed By: #### C BC, PT, PTT, BMP #### [address] [address] Physician Obstetrician: Good Melendez MD #### ANICOT #### [facility] [address] [place] [address] Physician Obstetrician: Troy Link MD Hemoglobin (Bld) [Mass/Vol] 12.2 g/dL Low 13.0-17.0 [facility] Comment on above: Performed By: #### C BC, PT, PTT, BMP #### [address] [address] Physician Obstetrician: Good Melendez MD #### ANICOT #### [facility] [address] [place] [address] Physician Obstetrician: Troy Link MD MCH (RBC) [Entitic mass] 30.2 pg Normal 25.2-33.5 [facility] Comment on above: Performed By: #### C BC, PT, PTT, BMP #### [address] [address] Physician Obstetrician: Good Melendez MD #### ANICOT #### [facility] [address] [place] [address] Physician Obstetrician: Troy Link MD MCHC (RBC) [Mass/Vol] 30.9 g/dL Normal 28.4-34.8 [facility] Comment on above: Performed By: #### C BC, PT, PTT, BMP #### [address] [address] Physician Obstetrician: Good Melendez MD #### ANICOT #### [facility] [address] [place] [address] Physician Obstetrician: Troy Link MD MCV (RBC) [Entitic vol] 97.8 fL Normal 82.6-102.9 [facility] Comment on above: Performed By: #### C BC, PT, PTT, BMP #### [address] [address] Physician Obstetrician: Good Melendez MD #### ANICOT #### [facility] [address] [place] [address] Physician Obstetrician: Troy Link MD NRBC Automated 0.0 per 100 WBC Normal 0.0 [facility] Comment on above: Performed By: #### C BC, PT, PTT, BMP #### [address] [address] Physician Obstetrician: Good Melendez MD #### ANICOT #### [facility] [address] [place], [place] [id number] Physician Obstetrician: Troy Link MD Platelet mean volume (Bld) [Entitic vol] 8.8 fL Normal 8.1-13.5 [facility] Comment on above: Performed By: #### C BC, PT, PTT, BMP #### [address] [address] Physician Obstetrician: Good Melendez MD #### ANICOT #### [facility] [address] [place] [address] Physician Obstetrician: Troy Link MD Platelets (Bld) [#/Vol] 263 10*3/uL Normal 138-453 [facility] Comment on above: Performed By: #### C BC, PT, PTT, BMP #### [address] [address] Physician Obstetrician: Good Melendez MD #### ANICOT #### [facility] [address] [place], [place] [id number] Physician Obstetrician: Troy Link MD RBC (Bld) [#/Vol] 4.04 10*6/uL Low 4.21-5.77 [facility] Comment on above: Performed By: #### C BC, PT, PTT, BMP #### [facility] [address] [place], [place] [address] Physician Obstetrician: Good Melendez MD #### ANAPARNAT #### [facility] [address] [place], [place] [id number] Physician Obstetrician: Troy Link MD WBC (Bld) [#/Vol] 10.8 10*3/uL Normal 3.5-11.3 [facility] Comment on above: Performed By: #### C BC, PT, PTT, BMP #### [facility] [address] [place] [address] Physician Obstetrician: Good Melendez MD #### ANICOT #### [facility] [facility] [address] [place] [address] Physician Obstetrician: Tryo Link MD Hematocrit (Bld) [Volume fraction] 39.5 % Low 40.7 - 50.3 % [facility] Hemoglobin.gastroint estinal spec 1 Ql (Stl) 12.2 g/dL Low 13.0 - 17.0 g/dL [facility] Interpretation and review of laboratory results Abnormal [facility] MCH (RBC) [Entitic mass] 30.2 pg 25.2 - 33.5 pg [facility] MCHC (RBC) [Mass/Vol] 30.9 g/dL 28.4 - 34.8 g/dL [facility] MCV (RBC) [Entitic vol] 97.8 fL 82.6 - 102.9 fL [facility] [employer] NRBC Automated 0.0 0.0 per 100 WBC [facility] [employer] Platelet distribution width (Bld) [Ratio] 13.9 % 11.8 - 14.4 % [facility] Platelet mean volume (Bld) [Entitic vol] 8.8 fL 8.1 - 13.5 fL [facility] [place] [employer] Platelets (Bld) [#/Vol] 263 10*3/uL [facility] RBC (Bld) [#/Vol] 4.04 10*6/uL Low 4.21 - 5.7 7 m/uL [facility] [employer] WBC (Bld) [#/Vol] 10.8 10*3/uL [facility] Magnesiumon 05-25-2021 Magnesium [Mass/Vol] 1.9 mg/dL Normal 1.6-2.[address] [facility] Comment on above: Performed By: #### C BC, PT, PTT, BMP #### [employer] [facility] [place], [place] [id number] Physician Obstetrician: Good Melendez MD #### ANICOT #### [facility] [address] [place] [address] Physician Obstetrician: Troy Link MD Magnesium [Mass/Vol] 1.9 mg/dL 1.6 - 2 .6 mg/dL [facility] Surgical Pathologyon 022 Surgical Pathology [...] with no areas of granularity or masses. Clod Puller sections 1cs. tm Microscopic Description Sections of gastric wall show lamina propria without evidence of significant inflammation. There is no evidence of intestinal metaplasia or dysplasia. There is no evidence of organisms suspicious for Helicobacter with the routine CANDY stain. SURGICAL PATHOLOGY CONSULTATION Patient Name: SUKHDEEP SIMENTAL [facility] Rec: [id number] Path Number: [id number] [facility] ANATOMIC PATHOLOGY [address] [place] [id number] Normal [facility] Comment on above: Performed By: #### C BC, PT, PTT, BMP #### [employer] [facility] [place], [place] [id number] Physician Obstetrician: Good Melendez MD #### ANICOT #### [facility] [address] [place] [address] Physician Obstetrician: Troy Link MD Basic Metabolic Panelon 04-27 Anion gap [Moles/Vol] 13 mmol/L 9 - 17 mmol/L [facility] Calcium [Mass/Vol] 9.1 mg/dL 8.6 - 10. 4 mg/dL [facility] Chloride [Moles/Vol] 102 mmol/L 98 - 10 7 mmol/L [facility] CO2 [Moles/Vol] 17 mmol/L Low 20 - 31 mmol/L [facility] Creatinine [Mass/Vol] 1.16 mg/dL 0.70 - 1.20 mg/dL [facility] GFR >60 >60 mL/min [employer] GFR Non- >60 >60 mL/min [facility] GFR/1.73 sq M.predicted MDRD (S/P/Bld) [Vol rate/Area] [facility] Comment on above: Average GFR for 50-5 9 years old: 93 mL/min/1.73sq m Chronic Kidney Disease: <60 mL/min/1.73sq m Kidney failure: <15 mL/min/1.73sq m eGFR calculated using average adult body mass. Additional eGFR calculator available at: http://www.Project 2020/multiple_crcl_2012.htm Glucose [Mass/Vol] 203 mg/dL High 70 - 99 mg/dL [facility] Interpretation and review of laboratory results Abnormal [facility] Potassium [Moles/Vol] 4.2 mmol/L 3.7 - 5.3 mmol/L [facility] Sodium [Moles/Vol] 132 mmol/L Low 135 - 144 mmol/L [facility] Urea nitrogen (BldV) [Mass/Vol] 29 mg/dL High 6 - 20 mg/dL [facility] Basic Metabolic Profon 05-24 (cont.) Normal [facility] Comment on above: Result Comment: Aver age GFR for 50-59 years old: 93 mL/min/1.73sq m Chronic Kidney Disease: <60 mL/min/1.73sq m Kidney failure: <15 mL/min/1.73sq m eGFR calculated using average adult body mass. Additional eGFR calculator available at: http://www.Indelsul.Zenring/multiple_crcl_2012.htm Performed By: #### C BC, BMP #### [address] [address] Physician Obstetrician: Good Melendez MD Anion gap [Moles/Vol] 13 mmol/L Normal 9-17 [facility] Comment on above: Performed By: #### C BC, BMP #### [address] [address] Physician Obstetrician: Good Melendez MD Calcium [Mass/Vol] 9.1 mg/dL Normal 8.6-10.4 [facility] Comment on above: Performed By: #### C JASE, BMP #### [address] [address] Physician Obstetrician: Good Melendez MD Chloride [Moles/Vol] 102 mmol/L Normal 98-[address] [facility] Comment on above: Performed By: #### C BC, BMP #### [address] [address] Physician Obstetrician: Good Melendez MD CO2 [Moles/Vol] 17 mmol/L Low 20-31 [facility] Comment on above: Performed By: #### C BC, BMP #### [address] [address] Physician Obstetrician: Good Melendez MD Creatinine [Mass/Vol] 1.16 mg/dL Normal 0.70-1.20 [facility] Comment on above: Performed By: #### C BC, BMP #### [address] [address] Physician Obstetrician: Good Melendez MD GFR, Amer >60 Normal >60 [facility] Comment on above: Performed By: #### C BC, BMP #### [facility] [address] [place] [address] Physician Obstetrician: Good Melendez MD GFR,non Amer >60 Normal >[address] [facility] Comment on above: Performed By: #### C BC, BMP #### [facility] [address] [place] [address] Physician Obstetrician: Good Melendez MD Glucose [Mass/Vol] 203 mg/dL High 70-99 [facility] Comment on above: Performed By: #### C BC, BMP #### [facility] [address] [place] [address] Physician Obstetrician: Good Melendez MD Potassium [Moles/Vol] 4.2 mmol/L Normal 3.7-5.3 [facility] Comment on above: Performed By: #### C BC, BMP #### [facility] [address] [place] [address] Physician Obstetrician: Good Melendez MD Sodium [Moles/Vol] 132 mmol/L Low 135-144 [facility] Comment on above: Performed By: #### C BC, BMP #### [facility] [address] [place] [address] Physician Obstetrician: Good Melendez MD Urea nitrogen [Mass/Vol] 29 mg/dL High 6-20 [facility] Comment on above: Performed By: #### C BC, BMP #### [facility] [address] [place] [address] Physician Obstetrician: Good Melendez MD CBCon 05-24-2021 Erythrocyte distribution width (RBC) [Ratio] 14.0 % Normal 11.8-14.4 [facility] Comment on above: Performed By: #### C BC, BMP #### [facility] [address] [place] [address] Physician Obstetrician: Good Melendez MD Hematocrit (Bld) [Volume fraction] 41.0 % Normal 40.7-50.3 [facility] Comment on above: Performed By: #### C BC, BMP #### [address] [address] Physician Obstetrician: Good Melendez MD Hemoglobin (Bld) [Mass/Vol] 12.7 g/dL Low 13.0-17.0 [facility] Comment on above: Performed By: #### C BC, BMP #### [facility] [address] [place] [address] Physician Obstetrician: Good Melendez MD MCH (RBC) [Entitic mass] 29.5 pg Normal 25.2-33.5 [facility] Comment on above: Performed By: #### C JASE, BMP #### [address] [address] Physician Obstetrician: Good Melendez MD MCHC (RBC) [Mass/Vol] 31.0 g/dL Normal 28.4-34.8 [facility] Comment on above: Performed By: #### C JASE, BMP #### [address] [address] Physician Obstetrician: Good Melendez MD MCV (RBC) [Entitic vol] 95.3 fL Normal 82.6-102.9 [facility] Comment on above: Performed By: #### C BC, BMP #### [facility] [address] [place] [address] Physician Obstetrician: Good Melendez MD NRBC Automated 0.0 per 100 WBC Normal 0.0 [facility] Comment on above: Performed By: #### C BC, BMP #### [facility] [address] [place] [phone] Physician Obstetrician: Good Melendez MD Platelet mean volume (Bld) [Entitic vol] 8.8 fL Normal 8.1-13.5 [facility] Comment on above: Performed By: #### C BC, BMP #### [facility] [address] [place] [address] Physician Obstetrician: Good Melendez MD Platelets (Bld) [#/Vol] 273 10*3/uL Normal 138-453 [facility] Comment on above: Performed By: #### C BC, BMP #### [facility] [address] [place] [address] Physician Obstetrician: Good Melendez MD RBC (Bld) [#/Vol] 4.30 10*6/uL Normal 4.21-5.77 [facility] Comment on above: Performed By: #### C JASE, BMP #### [employer] [address] [place] [address] Physician Obstetrician: Good Melendez MD WBC (Bld) [#/Vol] 9.6 10*3/uL Normal 3.5-11.3 [facility] Comment on above: Performed By: #### C BC, BMP #### [facility] [employer] [address] [place] [address] Physician Obstetrician: Good Melendez MD CBC without Diffon Hematocrit (Bld) [Volume fraction] 41.0 % 40.7 - 50.3 % [facility] Hemoglobin.gastroint estinal spec 1 Ql (Stl) 12.7 g/dL Low 13.0 - 17.0 g/dL [facility] Interpretation and review of laboratory results Abnormal [facility] MCH (RBC) [Entitic mass] 29.5 pg 25.2 - 33.5 pg [facility] MCHC (RBC) [Mass/Vol] 31.0 g/dL 28.4 - 34.8 g/dL [facility] MCV (RBC) [Entitic vol] 95.3 fL 82.6 - 102.9 fL [facility] NRBC Automated 0.0 0.0 per 100 WBC [facility] Platelet distribution width (Bld) [Ratio] 14.0 % 11.8 - 14.4 % [facility] Platelet mean volume (Bld) [Entitic vol] 8.8 fL 8.1 - 13.5 fL [facility] Platelets (Bld) [#/Vol] 273 10*3/uL [facility] RBC (Bld) [#/Vol] 4.30 10*6/uL 4.21 - 5.7 7 m/uL [facility] WBC (Bld) [#/Vol] 9.6 10*3/uL [facility] COVID-19, Rapidon 05-24-2021 SARS-CoV-2 (COVID-19) RNA MUKUL+probe Ql (Unsp spec) Not detected Not Detected [facility] Comment on above: Rapid NAAT: The [...] management decisions. Fact sheet for Healthcare Providers: https://www.fda.gov/media/055065/download Fact sheet for Patients: https://www.fda.gov/media/826027/download Methodology: Isothermal Nucleic Acid Amplification Specimen Description .NASOPHARYNGEAL SWAB [facility] Calcium, Ionicon 05-24-2021 Calcium [Moles/Vol] 1.31 mmol/L Normal 1.13-1.[address] [facility] Comment on above: Performed By: #### I OCSETH MG, BRITTANIE #### [facility] [place] [address] Physician Obstetrician: Good Melendez MD Calcium, Ionizedon Calcium [Moles/Vol] 1.31 mmol/L 1.13 - 1 .33 mmol/L [facility] Magnesiumon 05-24-2021 Magnesium [Mass/Vol] 2.0 mg/dL Normal 1.6-2.[address] [facility] Comment on above: Performed By: #### C BC, PT, PTT, BMP #### [facility] [address] [place], [place] [id number] Physician Obstetrician: Good Melendez MD #### ANICOT #### [facility] [address] [place] [address] Physician Obstetrician: Troy Link MD Magnesium [Mass/Vol] 2.0 mg/dL 1.6 - 2 .6 mg/dL [facility] No Panel Informationon 05-24 [facility] POC Glucose Fingerstickon Glucose [Mass/Vol] 199 mg/dL High 75 - 110 mg/dL [facility] Interpretation and review of laboratory results Abnormal [facility] Glucose [Mass/Vol] 209 mg/dL High 75 - 110 mg/dL [facility] Interpretation and review of laboratory results Abnormal [facility] POCT Glucoseon 05-24-2021 Glucose [Mass/Vol] 150 mg/dL High 74 - 100 mg/dL [facility] Interpretation and review of laboratory results Abnormal [facility] POTASSIUM (POC)on 05-24-2021 Potassium [Moles/Vol] 3.9 mmol/L 3.5 - 4.5 mmol/L [facility] Phosphoruson 05-24-2021 Phosphate [Mass/Vol] 3.8 mg/dL 2.5 - 4 .5 mg/dL [facility] Phosphorus, Inorg.on 022 Phosphorus, Inorg. 3.8 mg/dL Normal 2.5-4.5 [facility] Comment on above: Performed By: #### C BC, PT, PTT, BMP #### [facility] [address] [place], [place] [phone] Physician Obstetrician: Good Melendez MD #### ANICOT #### [facility] [address] [place] [address] Physician Obstetrician: Troy Link MD [id number] 05-24-2021 SARS-CoV-2 (COVID-19) RNA MUKUL+probe Ql (Unsp spec) Not detected Normal NOTDET [facility] Comment on above: Result Comment: Rapid NAAT: [...] management decisions. Fact sheet for Healthcare Providers: https://www.fda.gov/media/186143/download Fact sheet for Patients: https://www.fda.gov/media/502840/download Methodology: Isothermal Nucleic Acid Amplification Performed By: #### C OVRB #### [employer] [address] [place] [address] Physician Obstetrician: Good Melendez MD Nicotineon 05-11-2021 [id number] <2 Normal [facility] Comment on above: Performed By: #### C BC, PT, PTT, BMP #### [facility] [address] [place] [address] Physician Obstetrician: Good Melendez MD #### ANICOT #### [facility] [address] [place] [address] Physician Obstetrician: Troy Link MD Cotinine <2 Normal [facility] Comment on above: Performed By: #### C BC, PT, PTT, BMP #### [facility] [address] [place] [address] Physician Obstetrician: Good Melendez MD #### ANICOT #### [facility] [address] [place] [address] Physician Obstetrician: Troy Link MD Nicotine <2 Normal [facility] Comment on above: Result Comment: (NOT E) [...] developed and its performance characteristics determined by [facility]. It has not been cleared or approved by the US Food and Drug Administration. This test was performed in a CLIA certified laboratory and is intended for clinical purposes. Performed By: [facility] [address] [place] [address] Milieu Therapist: Ayse Diaz MD Performed By: #### C BC, PT, PTT, BMP #### [facility] [place] [address] Physician Obstetrician: Good Melendez MD #### ANICOT #### [facility] [address] [place] [address] Physician Obstetrician: Troy Link MD Nicotine, Bloodon 05-11-2021 [id number] <2 ng/mL [facility] h Cotinine <2 ng/mL [facility] Nicotine <2 ng/mL [facility] Comment on above: (NOTE) Consistent with [...] developed and its performance characteristics determined by [facility]. It has not been cleared or approved by the US Food and Drug Administration. This test was performed in a CLIA certified laboratory and is intended for clinical purposes. Performed By: [facility] [address] [place] [address] Milieu Therapist: Ayse Diaz MD [facility] EKG 12 LeadOrdered By: Unkno wn Result on 05-09-2021 Atrial Rate 122 BPM [facility] P Mora 55 degrees [facility] P-R Interval 164 ms [facility] Q-T Interval 298 ms [facility] QRS Duration 84 ms [facility] QTc Calculation (Bazett) 424 ms [facility] R Mora -11 degrees [facility] T Mora 42 degrees [facility] Ventricular Rate 122 BPM [facility] EKG 12 Leadon 05-09-2021 Sinus tachycardia Otherwise normal ECG No previous ECGs available [facility] ST[facility] MUSE Result, Unknown Provider - 05/09/2021 Sinus tachycardia Otherwise normal ECG No previous ECGs available [facility] Work Phone: XR CHEST (2 VW)on 05-09-2021 [...] Singh Calero MD 05/09/21 Final result Normal [facility] No acute airspace disease identified. [facility] EXAMINATION: TWO XRAY VIEWS OF [...] effusion. No acute osseous abnormality is identified. [facility] Singh Calero MD - 05/09/2021 [...] identified. IMPRESSION: No acute airspace disease identified. [facility] Work Phone: XR CHEST (2 VW)Ordered By: Carlos Calero on 05-09-2021 [facility] Work Phone: APTTon 05-08-2021 aPTT Coag (Bld) [Time] 23.1 s Normal 20.5-30.5 [facility] Comment on above: Result Comment: IV Heparin Therapy Range: 48.6-77.8 Performed By: #### C BC, PT, PTT, BMP #### [employer] [address] [place], [place] [id number] Physician Obstetrician: Good Melendez MD #### ANICOT #### [facility] [address] [place] [address] Physician Obstetrician: Troy Link MD aPTT Coag (Bld) [Time] 23.1 s [facility] [employer] Comment on above: IV Heparin Therapy Range: 48.6-77.8 Basic Metabolic Panelon 03- Anion gap [Moles/Vol] 15 mmol/L 9 - 17 mmol/L [facility] Calcium [Mass/Vol] 9.4 mg/dL 8.6 - 10. 4 mg/dL [facility] Chloride [Moles/Vol] 103 mmol/L 98 - 10 7 mmol/L [facility] CO2 [Moles/Vol] 19 mmol/L Low 20 - 31 mmol/L [facility] Creatinine [Mass/Vol] 1.59 mg/dL High 0.70 - 1.20 mg/dL [facility] GFR 55 mL/min Low >[address] [facility] GFR Non- 45 mL/min Low >60 [facility] GFR/1.73 sq M.predicted MDRD (S/P/Bld) [Vol rate/Area] [facility] Comment on above: Average GFR for 50-5 9 years old: 93 mL/min/1.73sq m Chronic Kidney Disease: <60 mL/min/1.73sq m Kidney failure: <15 mL/min/1.73sq m eGFR calculated using average adult body mass. Additional eGFR calculator available at: http://www.Project 2020/Swivel_crcl_2012.htm Glucose [Mass/Vol] 141 mg/dL High 70 - 99 mg/dL [facility] Interpretation and review of laboratory results Abnormal [facility] Potassium [Moles/Vol] 5.3 mmol/L 3.7 - 5.3 mmol/L [facility] Sodium [Moles/Vol] 137 mmol/L 135 - 144 mmol/L [facility] Urea nitrogen (BldV) [Mass/Vol] 37 mg/dL High 6 - 20 mg/dL [facility] Basic Metabolic Profon 05-08 (cont.) Normal [facility] Comment on above: Result Comment: Aver age GFR for 50-59 years old: 93 mL/min/1.73sq m Chronic Kidney Disease: <60 mL/min/1.73sq m Kidney failure: <15 mL/min/1.73sq m eGFR calculated using average adult body mass. Additional eGFR calculator available at: http://www.Project 2020/multiple_crcl_2012.htm Performed By: #### C BC, PT, PTT, BMP #### [facility] [place] [address] Physician Obstetrician: Good Melendez MD #### ANICOT #### [facility] [address] [place], [place] [id number] Physician Obstetrician: Troy Link MD Anion gap [Moles/Vol] 15 mmol/L Normal 9-17 [facility] Comment on above: Performed By: #### C BC, PT, PTT, BMP #### [address] [address] Physician Obstetrician: Good Melendez MD #### ANICOT #### [facility] [address] [place], [place] [id number] Physician Obstetrician: Troy Link MD Calcium [Mass/Vol] 9.4 mg/dL Normal 8.6-10.4 [facility] Comment on above: Performed By: #### C BC, PT, PTT, BMP #### [address] [address] Physician Obstetrician: Good Melendez MD #### ANICOT #### [facility] [address] [place] [address] Physician Obstetrician: Troy Link MD Chloride [Moles/Vol] 103 mmol/L Normal 98-[address] [facility] Comment on above: Performed By: #### C BC, PT, PTT, BMP #### [address] [address] Physician Obstetrician: Good Melendez MD #### ANICOT #### [facility] [address] [place] [address] Physician Obstetrician: Troy Link MD CO2 [Moles/Vol] 19 mmol/L Low 20-31 [facility] Comment on above: Performed By: #### C BC, PT, PTT, BMP #### [facility] [place] [address] Physician Obstetrician: Good Melendez MD #### ANICOT #### [facility] [address] [place], [place] [id number] Physician Obstetrician: Troy Link MD Creatinine [Mass/Vol] 1.59 mg/dL High 0.70-1.20 [facility] Comment on above: Performed By: #### C BC, PT, PTT, BMP #### [facility] [address] [place] [address] Physician Obstetrician: Good Melendez MD #### ANICOT #### [facility] [address] [place] [address] Physician Obstetrician: Troy Link MD GFR, Amer 55 mL/min Low >60 [facility] Comment on above: Performed By: #### C BC, PT, PTT, BMP #### [facility] [address] [place] [address] Physician Obstetrician: Good Melendez MD #### ANICOT #### [facility] [address] [place], [place] [id number] Physician Obstetrician: Troy Link MD GFR,non Amer 45 mL/min Low >[address] [facility] Comment on above: Performed By: #### C BC, PT, PTT, BMP #### [facility] [address] [place] [address] Physician Obstetrician: Good Melendez MD #### ANICOT #### [facility] [address] [place] [address] Physician Obstetrician: Troy Link MD Glucose [Mass/Vol] 141 mg/dL High 70-99 [facility] Comment on above: Performed By: #### C BC, PT, PTT, BMP #### [facility] [address] [place], [place] [address], [place] [address] Physician Obstetrician: Good Melendez MD #### ANICOT #### [facility] [address] [place] [address] Physician Obstetrician: Troy Link MD Potassium [Moles/Vol] 5.3 mmol/L Normal 3.7-5.3 [facility] Comment on above: Performed By: #### C BC, PT, PTT, BMP #### [address] [id number] Physician Obstetrician: Good Melendez MD #### ANICOT #### [address] [address] Physician Obstetrician: Troy Link MD Sodium [Moles/Vol] 137 mmol/L Normal 135-144 [facility] Comment on above: Performed By: #### C BC, PT, PTT, BMP #### [address] [address] Physician Obstetrician: Good Melendez MD #### ANICOT #### [address] [address] Physician Obstetrician: Troy Link MD Urea nitrogen [Mass/Vol] 37 mg/dL High 6-20 [facility] Comment on above: Performed By: #### C BC, PT, PTT, BMP #### [address] [address] Physician Obstetrician: Good Melendez MD #### ANICOT #### [facility] [address] [place] [address] Physician Obstetrician: Troy Link MD CBCon 05-08-2021 Erythrocyte distribution width (RBC) [Ratio] 14.1 % Normal 11.8-14.4 [facility] Comment on above: Performed By: #### C BC, PT, PTT, BMP #### [address] [place] [address] Physician Obstetrician: Good Melendez MD #### ANICOT #### [facility] [address] [place] [address] Physician Obstetrician: Troy Link MD Hematocrit (Bld) [Volume fraction] 43.6 % Normal 40.7-50.3 [facility] Comment on above: Performed By: #### C BC, PT, PTT, BMP #### [facility] [address] [place] [address] Physician Obstetrician: Good Melendez MD #### ANICOT #### [facility] [address] [place] [address] Physician Obstetrician: Troy Link MD Hemoglobin (Bld) [Mass/Vol] 13.5 g/dL Normal 13.0-17.0 [facility] Comment on above: Performed By: #### C BC, PT, PTT, BMP #### [address] [address] Physician Obstetrician: Good Melendez MD #### ANICOT #### [facility] [address] [place] [address] Physician Obstetrician: Troy Link MD MCH (RBC) [Entitic mass] 29.4 pg Normal 25.2-33.5 [facility] Comment on above: Performed By: #### C BC, PT, PTT, BMP #### [address] [address] Physician Obstetrician: Good Melendez MD #### ANICOT #### [facility] [address] [place] [address] Physician Obstetrician: Troy Link MD MCHC (RBC) [Mass/Vol] 31.0 g/dL Normal 28.4-34.8 [facility] Comment on above: Performed By: #### C BC, PT, PTT, BMP #### [facility] [place] [address] Physician Obstetrician: Good Melendez MD #### ANICOT #### [facility] [address] [place], [place] [id number] Physician Obstetrician: Troy Link MD MCV (RBC) [Entitic vol] 95.0 fL Normal 82.6-102.9 [facility] Comment on above: Performed By: #### C BC, PT, PTT, BMP #### [address] [id number] Physician Obstetrician: Good Melendez MD #### ANICOT #### [facility] [address] [place] [address] Physician Obstetrician: Troy Link MD NRBC Automated 0.0 per 100 WBC Normal 0.0 [facility] Comment on above: Performed By: #### C BC, PT, PTT, BMP #### [address] [address] Physician Obstetrician: Good Melendez MD #### ANICOT #### [facility] [address] [place] [address] Physician Obstetrician: Troy Link MD Platelet mean volume (Bld) [Entitic vol] 8.7 fL Normal 8.1-13.5 [facility] Comment on above: Performed By: #### C BC, PT, PTT, BMP #### [address] [address] Physician Obstetrician: Good Melendez MD #### ANICOT #### [facility] [address] [place] [address] Physician Obstetrician: Troy Link MD Platelets (Bld) [#/Vol] 279 10*3/uL Normal 138-453 [facility] Comment on above: Performed By: #### C BC, PT, PTT, BMP #### [facility] [place], [place] [id number] Physician Obstetrician: Good Melendez MD #### ANICOT #### [facility] [address] [place], [place] [id number] Physician Obstetrician: Troy Link MD RBC (Bld) [#/Vol] 4.59 10*6/uL Normal 4.21-5.77 [facility] Comment on above: Performed By: #### C BC, PT, PTT, BMP #### [facility] [address] [place] [phone] Physician Obstetrician: Good Melendez MD #### ANICOT #### [facility] [address] [place], [place] [phone] Physician Obstetrician: Troy Link MD WBC (Bld) [#/Vol] 8.9 10*3/uL Normal 3.5-11.3 [facility] Comment on above: Performed By: #### C BC, PT, PTT, BMP #### [facility] [address] [place] [id number] Physician Obstetrician: Good Melendez MD #### ANICOT #### [facility] [address] [place], [place] [phone] Physician Obstetrician: Troy Link MD Hematocrit (Bld) [Volume fraction] 43.6 % 40.7 - 50.3 % [facility] Hemoglobin.gastroint estinal spec 1 Ql (Stl) 13.5 g/dL 13.0 - 17.0 g/dL [facility] MCH (RBC) [Entitic mass] 29.4 pg 25.2 - 33.5 pg [facility] [employer] [place] [employer] MCHC (RBC) [Mass/Vol] 31.0 g/dL 28.4 - 34.8 g/dL [facility] MCV (RBC) [Entitic vol] 95.0 fL 82.6 - 102.9 fL [facility] [place] [employer] NRBC Automated 0.0 0.0 per 100 WBC [facility] Platelet distribution width (Bld) [Ratio] 14.1 % 11.8 - 14.4 % [facility] Platelet mean volume (Bld) [Entitic vol] 8.7 fL 8.1 - 13.5 fL [facility] Platelets (Bld) [#/Vol] 279 10*3/uL [facility] RBC (Bld) [#/Vol] 4.59 10*6/uL 4.21 - 5.7 7 m/uL [facility] WBC (Bld) [#/Vol] 8.9 10*3/uL [facility] No Panel Informationon 05-08 [facility] PTon 05-08-2021 INR Coag (PPP) [Relative time] 1.1 {INR} Normal [facility] Comment on above: Result Comment: Therapeutic Range: Moderate Anticoagulant Intensity: INR = 2.0-3.0 High Anticoagulant Intensity: INR = 2.5-3.5 Performed By: #### C BC, PT, PTT, BMP #### [employer] [address] [place] [address] Physician Obstetrician: Good Melendez MD #### ANICOT #### [facility] [address] [place] [address] Physician Obstetrician: Troy Link MD PT Coag (PPP) [Time] 11.2 s Normal 9.1-12.[address] [facility] Comment on above: Performed By: #### C BC, PT, PTT, BMP #### [employer] [address] [place] [address] Physician Obstetrician: Good Melendez MD #### ANICOT #### [facility] [address] [place] [address] Physician Obstetrician: Troy Link MD Protime-INRon 05-08-2021 INR Coag (Bld) [Relative time] 1.1 {INR} [facility] Comment on above: Therapeutic Range: Moderate Anticoagulant Intensity: INR = 2.0-3.0 High Anticoagulant Intensity: INR = 2.5-3.5 PT Coag (PPP) [Time] 11.2 s [employer] XR CHEST (2 VW)on 05-08-2021 Radiology Study observation (narrative) [employer] Work Phone: CT LUMBAR SPINE W CONTRASTon 02-28-2021 CT LUMBAR SPINE W CONTRAST [facility] Department of Radiology [address] [place] [address] ======== Patient Name: SUKHDEEP SIMENTAL : 1965 Sex: M Age: Race: White Pt. Location: Patient Status: D Ordered Date: 02/13/2021 9:35:00 AM Completed Date: 02/28/2021 02:00 PM Requesting Provider: JASON MILLER Attending Provider: JASON MILLER Report Copy To: Signs & Symptoms: Z98.1 Arthrodesis status I10 History: [place] Comments: Exam: CT LUMBAR SPINE W CONTRAST [...] above Electronically signed: Petar Mg. Transcribed by: [email or web address], User Resident: Electronically Signed by: PETAR MG @ 03/01/2021 02:21 PM Normal [facility] LUMBAR MYELOGRAMon 2 LUMBAR MYELOGRAM [facility] Department of Radiology [address] [place] [phone] ======== Patient Name: SUKHDEEP SIMENTAL : 1965 Sex: M Age: Race: White Pt. Location: 84 Patient Status: O Ordered Date: 02/13/2021 9:35:00 AM Completed Date: 02/28/2021 02:06 PM Requesting Provider: JASON MILLER Attending Provider: JASON MILLER Report Copy To: Signs & Symptoms: Z98.1 Arthrodesis status I10 History: [phone] Is patient on thinners? Eliquis hold 48hrs. 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 Consent was obtained. Timeout: [place] protocol timeout verification performed. PROCEDURE: Estimated blood [...] report. Electronically signed: Petar Mg. Transcribed by: [email or web address], User Resident: OCHOA HONG Electronically Signed by: PETAR MG @ 02/28/2021 03:13 PM I personally read this/these film(s) with this resident Normal [facility] LUMBAR SPINE 4 OR 5 [facility] LUMBAR SPINE 4 OR 5 [facility] Department of Radiology [address] [place] [phone] ======== Patient Name: SUKHDEEP SIMENTAL : 1965 Sex: M Age: Race: White Pt. Location: Patient Status: D Ordered Date: 02/01/2021 1:05:00 PM Completed Date: 02/01/2021 01:12 PM Requesting Provider: JASON MILLER Attending Provider: JASON MILLER Report Copy To: Signs & Symptoms: M54.16 Radiculopathy, lumbar region I10 History: [place] Comments: Views (X-RAY, LUMBAR SPINE): AP, Lateral, [...] Osteopenia. Electronically signed: Ahsan Farmer. Transcribed by: [email or web address], User Resident: Electronically Signed by: AHSAN FARMER @ 02/02/2021 10:14 AM Normal [facility] Comment on above: Order Comment: Views (X-RAY, LUMBAR SPINE): AP, Lateral, L5-S1 Spot, Flexion, Extension C REACTIVE PROTEINon 021 CRP [Mass/Vol] 9.6 mg/L High 0.0-7.0 [facility] Comment on above: Performed By: #### 6 1405 #### [facility] [address] [place] [address], [facility] CBC W/DIFFon 12-15-2020 ABS IMM GRANS 0.1 10*3/uL Normal 0.0-0.2 [facility] Comment on above: Performed By: #### 5 6505, 94244 #### [facility] [address] [place] [address], [facility] ABS NEUTROPHILS 6.1 10*3/uL Normal 1.6-7.[address] [facility] Comment on above: Performed By: #### 5 6505, 50633 #### [facility] [address] [place] [address], [place] Basophils (Bld) [#/Vol] 0.1 10*3/uL Normal 0.0-0.2 [facility] Comment on above: Performed By: #### 5 6505, 99535 #### [facility] [address] [place] [address], [place] Basophils/100 WBC (Bld) 0.8 % Normal 0.0-1.0 [facility] Comment on above: Performed By: #### 5 6505, 72850 #### [facility] [address] [place] [address], [place] Eosinophils (Bld) [#/Vol] 0.4 10*3/uL Normal 0.0-0.5 [facility] Comment on above: Performed By: #### 5 6505, 94065 #### [facility] [address] [place] [address], [place] Eosinophils/100 WBC (Bld) 4.1 % Normal 0.0-6.0 [facility] Comment on above: Performed By: #### 5 6505, 56204 #### [facility] [address] [place] [address], [place] Erythrocyte distribution width (RBC) [Ratio] 12.6 % Normal 11.5-15.0 [facility] Comment on above: Performed By: #### 5 6505, 69416 #### [facility] [address] [place] [address], [place] Hematocrit (Bld) [Volume fraction] 40.2 % Normal 39.0-50.0 [facility] Comment on above: Performed By: #### 5 6505, 66104 #### [facility] [address] [place] [address], [facility] Hemoglobin (Bld) [Mass/Vol] 12.6 g/dL Low 13.0-17.0 [facility] Comment on above: Performed By: #### 5 6505, 07017 #### [facility] [address] [place] [address], [facility] IMMATURE GRANS 0.7 % Normal 0.0-1.0 [facility] Comment on above: Performed By: #### 5 6505, 96633 #### [facility] [address] [facility] [place] [address], [facility] Lymphocytes (Bld) [#/Vol] 2.0 10*3/uL Normal 1.2-4.0 [facility] Comment on above: Performed By: #### 5 6505, 36845 #### [facility] [address] [facility] [place] [address], [facility] Lymphocytes/100 WBC (Bld) 20.6 % Normal 20.0-45.0 [facility] Comment on above: Performed By: #### 5 6505, 34993 #### [facility] [address] [facility] [place] [address], [facility] MCH (RBC) [Entitic mass] 30.0 pg Normal 27.0-33.0 [facility] Comment on above: Performed By: #### 5 6505, 32313 #### [facility] [address] [facility] [place] [address], [facility] MCHC (RBC) [Mass/Vol] 31.3 g/dL Low 32.0-35.0 [facility] Comment on above: Performed By: #### 5 6505, 65331 #### [facility] [address] [place] [address], [facility] MCV (RBC) [Entitic vol] 95.7 fL Normal 82.0-98.0 [facility] Comment on above: Performed By: #### 5 6505, 42150 #### [facility] [address] [place] [id number], [facility] Monocytes (Bld) [#/Vol] 1.2 10*3/uL High 0.1-1.0 [facility] Comment on above: Performed By: #### 5 6505, 74781 #### [facility] [address] [place] [address], [facility] MONOS 11.9 % Normal 5.0-12.0 [facility] Comment on above: Performed By: #### 5 6505, 20243 #### [facility] [address] [place] [address], [facility] Neutrophils/100 WBC (Bld) 61.9 % Normal 40.0-72.0 [facility] Comment on above: Performed By: #### 5 6505, 74685 #### [facility] [address] [facility] [place] [address], [facility] Nucleated RBC/100 WBC (Bld) [Ratio] 0 % Normal 0-0 [facility] Comment on above: Performed By: #### 5 6505, 14823 #### [facility] [address] [place] [address], [place] PLAT CNT 335 10*3/uL Normal 150-400 [facility] Comment on above: Performed By: #### 5 6505, 44627 #### [facility] [address] [place] [address], [facility] RBC (Bld) [#/Vol] 4.20 10*6/uL Normal 4.20-5.70 [facility] Comment on above: Performed By: #### 5 6505, 47066 #### [facility] [address] WBC (Bld) [#/Vol] 9.86 10*3/uL Normal 4.00-10.60 [facility] Comment on above: Performed By: #### 5 6506, 34564 #### [address] KNEE RIGHT 4 [facility] 1 KNEE RIGHT 4 [facility] Department of Radiology [address] [place] [phone] ======== Patient Name: SUKHDEEP SIMENTAL : 1965 Sex: M Age: Race: White Pt. Location: OUTP Patient Status: D Ordered Date: 12/15/2020 12:25:00 PM Completed Date: 12/15/2020 12:35 PM Requesting Provider: ROBBI PEPE Attending Provider: ROBBI PEPE Report Copy To: Signs & Symptoms: L03.115 cellulitis of rt lower limb History: Comments: evaluate Exam: KNEE RIGHT 4 [facility] ======== KNEE RIGHT 4 [facility] 12/15/2020 12:35 PM CLINICAL INDICATIONS: L03.115 [...] report. Electronically signed: Layo Jimenes. Transcribed by: [email or web address], User Resident: LAYO CORDERO Electronically Signed by: LAYO JIMENES @ 12/16/2020 09:18 AM I personally read this/these film(s) with this resident Normal [facility] Comment on above: Order Comment: evalu ate SEDIMENTATION RATEon 021 SED RATE 77 mm/hr High 0-10 [facility] Comment on above: Performed By: #### 5 6506, 39660 #### [facility] [address] COVID-19 Positive/Negativeon 05-05-2020 COVID-19 Positive/Negative Negative Negative [facility] Comment on above: Reference: NegativeT esting for SARS-CoV-2 by RT-PCRThis test was developed and its performance characteristics determined by [employer] ([employer]) and validated at the [facility]. This test has not been FDA cleared [...] among non-blacks MDRD (S/P/Bld) [Vol rate/Area] mL/min/{1.73_m2} [facility] Otheron 05-05-2020 GFR/1.73 sq M.predicted MDRD (S/P/Bld) [Vol rate/Area] mL/min/{1.73_m2} [facility] Comment on above: GFR estimated refere nce range: According to KDOQI guidelines, <60 ml/min/1.73m2 is sufficient to diagnose a patient with chronic kidney disease. Pharmacy Creatinine Clearance (Chem N/A [facility] Coronavirus 2019 PCR Interp N/A [facility] Serum or plasma calcium yeni urement (mass/volume)on 05-05-2020 Calcium [Mass/Vol] 8.6 mg/dL 8.2-10.2 [facility] Serum or plasma chloride xi surement (moles/volume)on 05-05-2020 Chloride [Moles/Vol] 104 mmol/L 95-114 [facility] Serum or plasma creatinine m easurement with calculation of estimated glomerular filtron 05-05-2020 Creatinine [Mass/Vol] 1.14 mg/dL 0.64-1.27 [facility] Serum or plasma glucose yeni urement (mass/volume)on 05-05-2020 Glucose [Mass/Vol] 178 mg/dL 70-100 [facility] Comment on above: ADA recommended refe rence rangeRandom Glucose Reference Range is dependent on time and content of last meal. Glucose of more than 200 mg/dL in a nonstressed, ambulatory subject supports the diagnosis of Diabetes Mellitus. Serum or plasma potassium me asurement (moles/volume)on 05-05-2020 Potassium [Moles/Vol] 4.0 mmol/L 3.5-5.1 [facility] Serum or plasma sodium measu rement (moles/volume)on 05-05-2020 Sodium [Moles/Vol] 141 mmol/L 136-146 [facility] Serum or plasma total carbon dioxide measurement (moles/volume)on 05-05-2020 CO2 [Moles/Vol] 27.4 mmol/L 22.0-30.0 [facility] Serum or plasma urea nitroge n measurement (mass/volume)on 05-05-2020 Urea nitrogen [Mass/Vol] 18 mg/dL 9-23 [facility] .eGFRon 06-10-2019 eGFR AA >60 Normal >=60 [facility] Comment on above: Result Comment: Resu lt = 0-14.9 mL/min/1.73 m2 Kidney failure or Dialysis Result = 15-29 mL/min/1.73 m2 Severe decrease in GFR Result = 30-59 mL/min/1.73 m2 Moderate decrease in GFR Result >= 60 mL/min/1.73 m2 Normal or increased GFR Performed By: #### E GFR #### [address] [address] eGFR Non-AA >60 Normal >=60 [facility] Comment on above: Result Comment: Resu lt [...] dosing. Performed By: #### E GFR #### [address] [address] Basic Metabolic Profileon Anion gap [Moles/Vol] 15 mmol/L Normal 7-17 [facility] Comment on above: Performed By: #### C [id number] #### [address] [address] Calcium [Mass/Vol] 9.8 mg/dL Normal 8.5-10.3 [facility] Comment on above: Performed By: #### C [id number] #### [address] [address] Chloride [Moles/Vol] 103 mmol/L Normal 98-110 [facility] Comment on above: Performed By: #### C [id number] #### [address] [address] CO2 [Moles/Vol] 27 mmol/L Normal 22-32 [facility] Comment on above: Performed By: #### C [id number] #### [address] [address] Creatinine [Mass/Vol] 0.98 mg/dL Normal 0.61-1.24 [facility] Comment on above: Performed By: #### C [id number] #### [address] [address] Glucose [Mass/Vol] 198 mg/dL High 70-99 [facility] Comment on above: Performed By: #### C [id number] #### [address] [address] Potassium [Moles/Vol] 4.0 mmol/L Normal 3.4-4.8 [facility] Comment on above: Performed By: #### C [id number] #### [address] [address] Sodium [Moles/Vol] 141 mmol/L Normal 133-142 [facility] Comment on above: Performed By: #### C [id number] #### [address] [address] Urea nitrogen [Mass/Vol] 18 mg/dL Normal 8-26 [facility] Comment on above: Performed By: #### C [id number] #### [address] [address] Urea nitrogen/Creatinine [Mass ratio] 18.4 mg/mg Normal 10.0-20.0 [facility] Comment on above: Performed By: #### C [id number] #### [address] [address] CBCon 06-10-2019 Erythrocyte distribution width (RBC) [Ratio] 13.0 % Normal 11.6-14.8 [facility] Comment on above: Performed By: #### C BCI #### [address] [address] Hematocrit (Bld) [Volume fraction] 46.2 % Normal 41.0-53.0 [facility] Comment on above: Performed By: #### C BCI #### [address] [address] Hemoglobin (Bld) [Mass/Vol] 16.2 g/dL Normal 13.5-17.5 [facility] Comment on above: Performed By: #### C BCI #### [address] [address] MCH (RBC) [Entitic mass] 32.1 pg Normal 27.0-35.0 [facility] Comment on above: Performed By: #### C BCI #### [address] [address] MCHC (RBC) [Mass/Vol] 35.0 % Normal 31.0-37.0 [facility] Comment on above: Performed By: #### C BCI #### [address] [address] MCV (RBC) [Entitic vol] 91.6 fL Normal 80.0-100.0 [facility] Comment on above: Performed By: #### C BCI #### [address] [address] Platelet mean volume (Bld) [Entitic vol] 7.5 fL Normal 6.7-10.6 [facility] Comment on above: Performed By: #### C BCI #### [address] [address] Platelets (Bld) [#/Vol] 263 x10*3/mcL Normal 150-350 [facility] Comment on above: Performed By: #### C BCI #### [address] [address] RBC (Bld) [#/Vol] 5.04 x10*6/mcL Normal 4.30-5.80 [facility] Comment on above: Performed By: #### C BCI #### [address] [address] WBC (Bld) [#/Vol] 9.7 x10*3/mcL Normal 4.5-11.0 [facility] Comment on above: Performed By: #### C BCI #### [address] [address] Hgb A1con 06-10-2019 HbA1c (Bld) [Mass fraction] 134 mg/dL High 68-114 [facility] Comment on above: Result Comment: Math ematical Calc approx. The mean gluc equivalency of A1c Performed By: #### H BA1C #### [address] [address] HbA1c (Bld) [Mass fraction] 6.3 % A1c High 4.0-5.6 [facility] Comment on above: Result Comment: Refe rence Range: 4.0 - 5.6 % Normal 5.7 - 6.4 % Pre-Diabetes > 6.5 % Diabetes Performed By: #### H BA1C #### [address] [address] MRSA, PCRon 06-10-2019 INR Coag (Bld) [Relative time] Negative Normal [facility] Comment on above: Result Comment: The [employer] Xpert MRSA Assay is a qualitative in [...] clinician. Performed By: #### M RSAPC #### [address] [address] PTon 06-10-2019 INR Coag (PPP) [Relative time] 1.0 {INR} Normal <=3.5 [facility] Comment on above: Result Comment: INR has no normal range. INR Therapeutic range is: 2.0-3.0 (AF, CVA, TIAs, DVT prophylaxis, acute DVT) 2.5-3.5 ([facility] heart valves, recurrent thrombosis/emboli) Performed By: #### P TINR #### [address] [address] PT Coag (PPP) [Time] 11.9 s Normal 8.9-11.9 [facility] Comment on above: Performed By: #### P TINR #### [address] [address] PTTon 06-10-2019 aPTT Coag (Bld) [Time] 23.0 s Normal 19.2-27.8 [facility] Comment on above: Performed By: #### P TT #### [address] [address] XR Chest 2 Viewson 0 XR Chest [...] Electronically Signed in Other Vendor System) Normal [facility] XR LUMBAR SPINE (2-3 VIEWS)o n 04-16-2019 [...] Juwan Kumar MD 04/16/19 Final result Normal [facility] Limited range of motion without evidence of instability. Multilevel disc degeneration. [place], [place] EXAMINATION: 2 XRAY VIEWS OF THE [...] lower lumbar spine. Spinous processes appear intact. [facility] Jos[facility], [facility] Incoming Radiant Results From [email or web address] - 04/16/2019 11:16 AM EST EXAMINATION: 2 [...] without evidence of instability. Multilevel disc degeneration. [facility] LUMBAR SPINE WO CONTRASTo n 04-11-2019 [...] Ahsan Guidry MD 04/11/19 Final result Normal [facility] XR PELVIS (1-2 VIEWS)on 03-28 XR [...] Ahsan Guidry MD 04/11/19 Final result Normal [facility] No acute findings. [employer] Phone: EXAMINATION: ONE XRA Y VIEW OF THE PELVIS 04/11/2019 1:24 pm COMPARISON: None. HISTORY: ORDERING SYSTEM PROVIDED HISTORY: fall right buttock pain TECHNOLOGIST PROVIDED HISTORY: fall right buttock pain Reason for Exam: fall buttocks pain Acuity: Acute Type of Exam: Initial FINDINGS: No acute fracture. No widening of the sacroiliac joints. Degenerative changes within the lower lumbar spine. Mild bilateral hip osteoarthritis. [employer] Phone: Josafat, [employer] Incoming Radiant Results From [email or web address] - 04/11/2019 2:02 PM EST EXAMINATION: ONE [...] bilateral hip osteoarthritis. IMPRESSION: No acute findings. [employer] Work Phone: Vital Signs Date Time Vital Sign Value Performing Clinician Facility 02-13-2024 11:22-0500 Body mass index (BMI) [Ratio] 38.99 kg/m2 Ahsan Nienberg PA Work Phone: [facility] 02-13-2024 11:22-0500 Body weight 119.75 kg Ahsan Nienberg PA Work Phone: [facility] [place] [employer] [facility] 02-13-2024 11:22-0500 Diastolic blood pressure 100 mm[Hg] Ahsan Nienberg PA Work Phone: [facility] 02-13-2024 11:22-0500 Heart rate 92 /min Ahsan Nienberg PA Work Phone: [facility] 02-13-2024 11:22-0500 Respiratory rate 18 /min Ahsan Nienberg PA Work Phone: [facility] 02-13-2024 11:22-0500 Systolic blood pressure 150 mm[Hg] Ahsan Nienberg PA Work Phone: [facility] 12-05-2023 10:05-0400 Body height 175.3 cm Ahsan Nienberg PA Work Phone: [facility] [place] [employer] [facility] 12-05-2023 10:05-0400 Body mass index (BMI) [Ratio] 39.28 kg/m2 Ahsan Nienberg PA Work Phone: [facility] [place] [employer] [facility] 12-05-2023 10:05-0400 Body weight 120.66 kg Ahsan Nienberg PA Work Phone: [facility] [place] [employer] [facility] 12-05-2023 10:05-0400 Diastolic blood pressure 90 mm[Hg] Ahsan Nienberg PA Work Phone: [facility] [place] [employer] [facility] 12-05-2023 10:05-0400 Heart rate 91 /min Ahsan Nienberg PA Work Phone: [facility] 12-05-2023 10:05-0400 Respiratory rate 16 /min Ahsan Flynn PA Work Phone: [facility] 12-05-2023 10:05-0400 SaO2% (BldA) [Mass fraction] 95 % Ahsan NOVAK Work Phone: [facility] 12-05-2023 10:05-0400 Systolic blood pressure 131 mm[Hg] Ahsan NOVAK Work Phone: [facility] 11-07-2023 11:09-0400 Body height 175.26 cm [facility] 11-07-2023 11:09-0400 Body mass index (BMI) [Ratio] 39 kg/m2 [facility] 11-07-2023 11:09-0400 Body temperature 97.4 [degF] [facility] 11-07-2023 11:09-0400 Body weight 119.86 kg [facility] 11-07-2023 11:09-0400 Diastolic blood pressure 85 mm[Hg] [facility] 11-07-2023 11:09-0400 Heart rate 88 /min [facility] 11-07-2023 11:09-0400 Respiratory rate 18 /min [facility] 11-07-2023 11:09-0400 SaO2% (BldA) [Mass fraction] 98 % [facility] 11-07-2023 11:09-0400 Systolic blood pressure 123 mm[Hg] [facility] 08-15-2023 11:27-0400 Diastolic blood pressure 84 mm[Hg] Ahsan NOVAK Work Phone: [facility] 08-15-2023 11:27-0400 Heart rate 110 /min Ahsan Flynn PA Work Phone: [facility] 08-15-2023 11:27-0400 Respiratory rate 20 /min Ahsan Flynn PA Work Phone: [facility] 08-15-2023 11:27-0400 Systolic blood pressure 126 mm[Hg] Ahsan Flynn PA Work Phone: [facility] [place] [employer] [facility] 02-14-2023 11:12-0500 Body height 175.3 cm Ahsan Flynn PA Work Phone: [facility] 02-14-2023 11:12-0500 Body mass index (BMI) [Ratio] 39.43 kg/m2 Ahsan Flynn PA Work Phone: [facility] 02-14-2023 11:12-0500 Body weight 121.11 kg Ahsan Flynn PA Work Phone: [facility] 02-14-2023 11:12-0500 Diastolic blood pressure 94 mm[Hg] Ahsan Flynn PA Work Phone: [facility] 02-14-2023 11:12-0500 Heart rate 89 /min Ahsan Flynn PA Work Phone: [facility] 02-14-2023 11:12-0500 Respiratory rate 18 /min Ahsan Flynn PA Work Phone: [facility] [place] [employer] [facility] 02-14-2023 11:12-0500 SaO2% (BldA) [Mass fraction] 98 % Ahsan Flynn PA Work Phone: [facility] 02-14-2023 11:12-0500 Systolic blood pressure 143 mm[Hg] Ahsan Flynn PA Work Phone: [facility] 02-07-2023 14:37-0500 Body temperature 98.6 [degF] Riddhi Goss JUVENILE JUSTICE OFFICER.CONDENSER TUBE TENDER Work Phone: [facility] 02-07-2023 14:37-0500 Body weight 122.92 kg Riddhi Goss JUVENILE JUSTICE OFFICER.CONDENSER TUBE TENDER Work Phone: [facility] 02-07-2023 14:37-0500 Diastolic blood pressure 80 mm[Hg] Riddhi Goss JUVENILE JUSTICE OFFICER.CONDENSER TUBE TENDER Work Phone: [facility] 02-07-2023 14:37-0500 Heart rate 79 /min Riddhi Goss JUVENILE JUSTICE OFFICER.CONDENSER TUBE TENDER Work Phone: [facility] 02-07-2023 14:37-0500 SaO2% (BldA) [Mass fraction] 98 % Riddhi Goss JUVENILE JUSTICE OFFICER.CONDENSER TUBE TENDER Work Phone: [facility] 02-07-2023 14:37-0500 Systolic blood pressure 157 mm[Hg] Riddhi Goss JUVENILE JUSTICE OFFICER.CONDENSER TUBE TENDER Work Phone: [facility] 02-04-2023 09:16-0500 Blood Pressure Location Cecelia MURILLO [facility] 02-04-2023 09:16-0500 Diastolic blood pressure 88 mm[Hg] Cecelia MURILLO [facility] 02-04-2023 09:16-0500 Heart rate 79 /min Cecelia MURILLO [facility] 02-04-2023 09:16-0500 Respiratory rate 16 /min Cecelia MURILLO [facility] 02-04-2023 09:16-0500 Systolic blood pressure 139 mm[Hg] Cecelia MURILLO [facility] 12-20-2022 14:26-0400 Body height 175.3 cm Singh Morgan PA-C Work Phone: [facility] 12-20-2022 14:26-0400 Body weight 123.11 kg Singh Morgan PA-C Work Phone: [facility] 12-20-2022 14:26-0400 Diastolic blood pressure 84 mm[Hg] Singh Morgan PA-C Work Phone: [facility] 12-20-2022 14:26-0400 Heart rate 76 /min Singh Morgan PA-C Work Phone: [facility] 12-20-2022 14:26-0400 SaO2% (BldA) [Mass fraction] 97 % Singh Morgan PA-C Work Phone: [facility] 12-20-2022 14:26-0400 Systolic blood pressure 165 mm[Hg] Singh Morgan PA-C Work Phone: [facility] 12-06-2022 15:00-0400 Body height 175.26 cm Oumou Reji Other [employer] Other 12-06-2022 15:00-0400 Body mass index (BMI) [Ratio] 39.9 kg/m2 Oumou Reji Other [employer] Other 12-06-2022 15:00-0400 Body temperature 98.1 [degF] Oumou Reji Other [employer] Other 12-06-2022 15:00-0400 Body weight 122.56 kg Oumou Reji Other [employer] Other 12-06-2022 15:00-0400 Diastolic blood pressure 81 mm[Hg] Oumou Reji Other [employer] Other 12-06-2022 15:00-0400 Respiratory rate 20 /min Oumou Reji Other [employer] Other 12-06-2022 15:00-0400 SaO2% (BldA) [Mass fraction] 97 % Oumou Reji Other [employer] Other 12-06-2022 15:00-0400 Systolic blood pressure 127 mm[Hg] Oumou Reji Other [employer] Other 11-05-2022 14:17-0400 Body height 175.3 cm Thomas Mathew MD Work Phone: [facility] 11-05-2022 14:17-0400 Body weight 123.97 kg Thomas Mathew MD Work Phone: [facility] 11-05-2022 14:17-0400 Diastolic blood pressure 84 mm[Hg] Thomas Mathew MD Work Phone: [facility] 11-05-2022 14:17-0400 Heart rate 66 /min Thomas Mathew MD Work Phone: [facility] 11-05-2022 14:17-0400 SaO2% (BldA) [Mass fraction] 100 % Thomas Mathew MD Work Phone: [facility] 11-05-2022 14:17-0400 Systolic blood pressure 156 mm[Hg] Thomas Mathew MD Work Phone: [facility] 10-17-2022 15:41-0400 Blood Pressure Location Maite SQUIRES [facility] [place] 10-17-2022 15:41-0400 Diastolic blood pressure 84 mm[Hg] Maite SQUIRES [facility] [place] 10-17-2022 15:41-0400 Heart rate 70 /min Maite SQUIRES [facility] [place] 10-17-2022 15:41-0400 Respiratory rate 16 /min Maite SQUIRES [facility] [place] 10-17-2022 15:41-0400 Systolic blood pressure 118 mm[Hg] Maite RICKL [facility] [place] 06-21-2022 10:20-0400 Body height 175.26 cm Oumouyesenia Weinstein Other [employer] Other 06-21-2022 10:20-0400 Body mass index (BMI) [Ratio] 40.02 kg/m2 Oumou Reji Other [employer] Other 06-21-2022 10:20-0400 Body temperature 97.6 [degF] Oumou Reji Other [employer] Other 06-21-2022 10:20-0400 Body weight 122.93 kg Oumou Reji Other [employer] Other 06-21-2022 10:20-0400 Diastolic blood pressure 80 mm[Hg] Oumou Reji Other [employer] Other 06-21-2022 10:20-0400 Respiratory rate 20 /min Oumou Reji Other [employer] Other 06-21-2022 10:20-0400 SaO2% (BldA) [Mass fraction] 97 % Oumou Reji Other [employer] Other 06-21-2022 10:20-0400 Systolic blood pressure 114 mm[Hg] Oumou Reji Other [employer] Other 03-19-2022 09:48-0500 Blood Pressure Location Cecelia LIDIA [facility] 03-19-2022 09:48-0500 Diastolic blood pressure 88 mm[Hg] Cecelia MURILLO [facility] 03-19-2022 09:48-0500 Heart rate 78 /min Cecelia MURILLO [facility] 03-19-2022 09:48-0500 Respiratory rate 16 /min Cecelia MURILLO [facility] 03-19-2022 09:48-0500 Systolic blood pressure 139 mm[Hg] Cecelia MURILLO [facility] 01-11-2022 11:15-0500 Body temperature 98.1 [degF] PHYSIC[facility] 01-11-2022 11:15-0500 Diastolic blood pressure 88 mm[Hg] PHYSICIAN NO [facility] 01-11-2022 11:15-0500 Heart rate 79 /min PHYSICIAN NO [facility] 01-11-2022 11:15-0500 Respiratory rate 18 /min PH[facility] 01-11-2022 11:15-0500 SaO2% (BldA) [Mass fraction] 96 % PHYSICIAN NO [facility] 01-11-2022 11:15-0500 Systolic blood pressure 137 mm[Hg] PHYSICIAN NO [facility] 12-15-2021 12:20-0400 Body height 175.26 cm Estephanie Lowry Other [facility] [employer] Other 12-15-2021 12:20-0400 Body mass index (BMI) [Ratio] 41.49 kg/m2 Estephanie Lowry Other [facility] [facility] [employer] Other 12-15-2021 12:20-0400 Body temperature 98.6 [degF] Estephanie Lowry Other [employer] Other 12-15-2021 12:20-0400 Body weight 127.46 kg Estephanie Lowry Other [employer] Other 12-15-2021 12:20-0400 Diastolic blood pressure 96 mm[Hg] Estephanie Lowry Other [employer] Other 12-15-2021 12:20-0400 Respiratory rate 18 /min Estephanie Hammondmond Other [employer] Other 12-15-2021 12:20-0400 SaO2% (BldA) [Mass fraction] 97 % Estephanie Lowry Other [employer] Other 12-15-2021 12:20-0400 Systolic blood pressure 132 mm[Hg] Estephanie Lowry Other [employer] Other 10-25-2021 14:00-0400 Body height 175.26 cm Oumou Reji Other [employer] Other 10-25-2021 14:00-0400 Body mass index (BMI) [Ratio] 42.02 kg/m2 Oumou Reji Other [employer] Other 10-25-2021 14:00-0400 Body temperature 96.8 [degF] Oumou Reji Other [employer] Other 10-25-2021 14:00-0400 Body weight 129.09 kg Oumou Reji Other [employer] Other 10-25-2021 14:00-0400 Diastolic blood pressure 69 mm[Hg] Oumou Reji Other [employer] Other 10-25-2021 14:00-0400 Respiratory rate 20 /min Oumou Reji Other [employer] Other 10-25-2021 14:00-0400 SaO2% (BldA) [Mass fraction] 98 % Oumou Reji Other [employer] Other 10-25-2021 14:00-0400 Systolic blood pressure 109 mm[Hg] Oumou Reji Other [employer] Other 05-26-2021 10:45-0400 Body temperature 98.8 [degF] Octavio Mcclellan [employer] Work Phone: [employer] 05-26-2021 10:45-0400 Respiratory rate 18 /min Octavio Mcclellan [employer] Work Phone: [employer] 05-26-2021 10:45-0400 SaO2% (BldA) [Mass fraction] 98 % Octavio Mcclellan [employer] Work Phone: [employer] 05-26-2021 07:30-0400 Heart rate 105 /min Octavio Mcclellan [employer] Work Phone: [employer] 05-25-2021 23:20-0400 Diastolic blood pressure 85 mm[Hg] Octavio Mcclellan [employer] Work Phone: [employer] 05-25-2021 23:20-0400 Systolic blood pressure 130 mm[Hg] Octavio Mcclellan [employer] Work Phone: [employer] 05-24-2021 10:15-0400 Body height 175.3 cm Octavio Mcclellan [employer] Work Phone: [employer] 05-24-2021 10:15-0400 Body mass index (BMI) [Ratio] 50.65 kg/m2 Octavio Mcclellan [employer] Work Phone: [employer] 05-24-2021 10:15-0400 Body weight 155.58 kg Octavio Mcclellan [employer] Work Phone: [employer] 05-08-2021 11:04-0400 Body height 175.[address] [employer] 05-08-2021 11:04-0400 Body mass index (BMI) [Ratio] 51.98 kg/m2 [facility] [employer] 05-08-2021 11:04-0400 Body temperature 97.3 [degF] [facility] 05-08-2021 11:04-0400 Body weight 159.[address] [place] [employer] 05-08-2021 11:04-0400 Diastolic blood pressure 83 mm[Hg] [address] [place] [employer] 05-08-2021 11:04-0400 Heart rate 126 /min [address] [place] [employer] 05-08-2021 11:04-0400 Respiratory rate 20 /min [address] [place] [employer] 05-08-2021 11:04-0400 SaO2% (BldA) [Mass fraction] 95 % [address] [place] [employer] 05-08-2021 11:04-0400 Systolic blood pressure 121 mm[Hg] [address] [place] [employer] 01-08-2020 14:04-0500 BMI (Body Mass Index) 47.99 kg/m2 [facility] 01-08-2020 14:04-0500 Body Temperature 96.69 [degF] [facility] [employer] [place] [employer] [facility] 01-08-2020 14:04-0500 Body weight 147.42 kg [facility] [employer] [place] [employer] [facility] 01-08-2020 14:04-0500 Height 175.3 cm [facility] [employer] [place] [employer] [facility] 04-11-2019 12:42-0500 BMI (Body Mass Index) 44.3 kg/m2 [employer] Work Phone: 04-11-2019 12:42-0500 Body Temperature 97.39 [degF] [employer] Work Phone: 04-11-2019 12:42-0500 Body weight 136.08 kg [employer] Work Phone: 04-11-2019 12:42-0500 BP Diastolic 98 mm[Hg] [employer] Work Phone: 04-11-2019 12:42-0500 BP Systolic 196 mm[Hg] [employer] Work Phone: 04-11-2019 12:42-0500 Height 175.3 cm Suzanne [employer] Phone: 04-11-2019 12:42-0500 Pulse (Heart Rate) 72 /min Suzanne [employer] Phone: 04-11-2019 12:42-0500 Pulse Oximetry 96 % [employer] Phone: 04-11-2019 12:42-0500 Respiratory Rate 16 /min Suzanne [employer] Work Phone: Encounters Encounter Date Encounter Type Care Provider Facility Start: 08-13-2025 ambulatory Cecelia MURILLO [facility] ty: [place] Start: 08-07-2024 End: 08-07-2024 ambulatory Cecelia MURILLO Facility:[facility] [place] Start: 08-07-2024 End: 08-07-2024 Patient encounter procedure [facility] Start: 06-22-2024 End: 06-22-2024 ambulatory Cecelia MURILLO Facility:[facility] [place] Start: 06-17-2024 End: 06-17-2024 ambulatory [facility] Start: 05-18-2024 ambulatory [facility] Start: 05-18-2024 End: 05-18-2024 ambulatory [facility] Start: 04-10-2024 End: 04-21-2024 Telephone encounter Cherelle Oleary RN [facility] Start: 03-03-2024 End: 03-04-2024 Telephone encounter Cherelle Oleary RN [facility] Start: 02-13-2024 End: 02-13-2024 ambulatory AHSAN FLYNN [facility] Start: 02-13-2024 End: 02-13-2024 Office outpatient visit 15 minutes Ahsan Flynn PA Work Phone: [facility] Comment on above: Spinal stenosis, lum bar region, with neurogenic claudication (Primary Dx) Start: 02-03-2024 End: 02-03-2024 ambulatory Cecelia MURILLO Facility:[facility] Start: 02-03-2024 End: 02-03-2024 Patient encounter procedure Cecelia MURILLO [facility] Start: 12-05-2023 End: 12-05-2023 ambulatory [facility] Start: 12-05-2023 End: 12-05-2023 Office outpatient visit 15 minutes Ahsan NOVAK Work Phone: [facility] Comment on above: Spinal stenosis, lum bar region, with neurogenic claudication (Primary Dx) Start: 11-07-2023 End: 11-07-2023 ambulatory [facility] Work Phone: Start: 11-07-2023 End: 11-07-2023 Patient encounter procedure [facility] Neph[facility] Reg Work Phone: Start: 10-29-2023 Non-patient / Non-visit [facility] Work Phone: Start: 10-07-2023 End: 06-25-2024 Telephone encounter Thomas Mathew MD Work Phone: Neurology Comment on above: Appointment Start: 10-04-2023 Telephone encounter Thomas crabtree MD Work Phone: Neurology Comment on above: Results Start: 08-15-2023 End: 08-15-2023 Office outpatient visit 15 minutes Ahsan NOVAK Work Phone: [facility] Comment on above: Spinal stenosis, lum bar region, with neurogenic claudication (Primary Dx) Start: 08-15-2023 End: 08-15-2023 ambulatory [facility] Start: 07-30-2023 Telephone encounter Thomas crabtree MD Work Phone: Neurology Comment on above: Appointment; Orders Start: 07-23-2023 Telephone encounter Thomas crabtree MD Work Phone: Neurology Start: 05-08-2023 End: 05-08-2023 ambulatory Thomas Mathew MD Work Phone: Neurosurgery Comment on above: Radiculopathy, lumba r region (Primary Dx) Start: 05-08-2023 End: 05-08-2023 Telemedicine consultation with patient Thomas Mathew MD Work Phone: [facility] Start: 05-08-2023 Telephone encounter Cherelle Oleary RN [facility] Start: 05-07-2023 Telephone encounter Cherelle Oleary RN [facility] Start: 04-16-2023 Telephone encounter Thomas crabtree MD Work Phone: Neurology Comment on above: Imaging Disc Start: 04-10-2023 Telephone encounter Thomas crabtree MD Work Phone: Neurology Comment on above: PT Certification Start: 04-09-2023 Telephone encounter Thomas crabtree MD Work Phone: Neurology Start: 02-14-2023 End: 02-14-2023 Office outpatient visit 15 minutes Ahsan NOVAK Work Phone: [facility] Comment on above: Spinal stenosis, lum bar region, with neurogenic claudication (Primary Dx) Start: 02-07-2023 End: 02-07-2023 Patient encounter procedure Riddhi Goss JUVENILE JUSTICE OFFICER.CONDENSER TUBE TENDER Work Phone: Neurosurgery Comment on above: 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) Start: 02-07-2023 Telephone encounter Thomas crabtree MD Work Phone: Neurosurgery Start: 02-04-2023 End: 02-04-2023 Patient encounter procedure Cecelia Jj LIDIA [facility] Start: 01-23-2023 Telephone encounter Thomas [...] Evaluation and management of inpatient THOMAS MATHEW Facility:[facility] Start: 12-06-2022 End: 12-06-2022 ambulatory Oumou Weinstein Other [employer] Other Start: 12-06-2022 Office outpatient vi sit 25 minutes Oumou Weinstein [facility] Nephrology Reg Start: 11-21-2022 End: 11-21-2022 ambulatory MAITE GALLOWAY Facility:[facility] Start: 11-21-2022 End: 11-21-2022 ambulatory BLAYNE ISABEL Facility:[facility] Start: 11-21-2022 End: 11-21-2022 ambulatory BLAYNE ISABEL Facility:[facility] Start: 11-21-2022 Encounter for other preprocedural examination BLAYNE ISABEL [facility] Start: 11-05-2022 End: 11-05-2022 Patient encounter procedure Thomas Mathew MD Work Phone: Neurosurgery Comment on above: 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 Facility:[facility] Start: 06-21-2022 End: 06-21-2022 ambulatory Oumou Reji Other [employer] Other Start: 06-21-2022 Office outpatient vi sit 25 minutes Oumou Reji [facility] Start: 06-11-2022 End: 06-12-2022 ambulatory OUMOU REJI Facility:[facility] Start: 04-03-2022 End: 04-03-2022 ambulatory Oumou Reji Other [employer] Other Start: 04-03-2022 Telephone encounter Oumou Reji [facility] Start: 03-20-2022 Encounter for preprocedural laboratory examination DR DOCTOR MILES [facility] Start: 03-19-2022 End: 03-19-2022 Patient encounter procedure Cecelia MURILLO [facility] Start: 03-15-2022 End: 03-16-[address] DOCTOR MILES Facility:[facility] Start: 03-15-2022 End: 03-16-2022 Encounter for preprocedural laboratory examination DR DOCTOR MILES Facility:[facility] Start: 03-12-2022 End: 03-13-[address] CECELIA MURILLO . Facility:[facility] Start: 03-08-2022 End: 03-09-[address] DOCTOR MILES Facility:[facility] Start: 01-27-2022 Encounter for genera l adult medical examination without abnormal findings DR BLAYNE ISABEL . [facility] Start: 01-24-2022 End: 01-25-[address] BLAYNE ISABEL . Facility:[facility] Start: 01-24-2022 End: 01-25-2022 Encounter for general adult medical examination without abnormal findings DR BLAYNE ISABEL . Facility:[facility] Start: 01-22-2022 End: 01-22-2022 ambulatory Oumou Reji Other [employer] Other Start: 01-22-2022 Telephone encounter Oumou Reji [facility] Start: 01-11-2022 End: 01-11-2022 ambulatory PHYSICIAN NO FAMILY Facility:[facility] Start: 01-11-2022 End: 01-11-2022 ambulatory PHYSICIAN NO [facility] Work Phone: Start: 01-11-2022 End: 01-11-2022 Discharged Recurring PHYSICIAN NO [facility]-Infusion Therapy - O/P Start: 01-10-2022 End: 01-10-2022 ambulatory Oumou Reji Other [employer] Other Start: 01-10-2022 Telephone encounter Oumou Reji [facility] Start: 01-02-2022 End: 01-02-2022 ambulatory Oumou Reji Other [employer] Other Start: 01-02-2022 Telephone encounter Oumou Reji [facility] Start: 01-01-2022 End: 01-01-2022 ambulatory Oumou Reji Other [employer] Other Start: 01-01-2022 Telephone encounter Oumou Reji [facility] Start: 12-21-2021 End: 12-22-[address] BLAYNE ISABEL . Facility:[facility] Start: 12-15-2021 Office outpatient vi sit 15 minutes Estephanie Lowry [facility] Start: 12-15-2021 Telephone encounter Oumou Reji [facility] Start: 12-15-2021 End: 12-15-2021 ambulatory Estephanie Lowry [facility] [employer] Other Start: 12-15-2021 End: 12-15-2021 Departed Referred CLAM [facility]ORTER-[facility] Estephanie Lowry Work Phone: [facility] [place] Start: 11-24-2021 End: 11-25-2021 ambulatory OUMOU REJI Facility:[facility] Start: 11-15-2021 End: 11-15-2021 ambulatory OUMOU REJI Facility:[facility] Start: 11-14-2021 End: 11-15-2021 ambulatory OUMOU REJI Facility:[facility] Start: 11-01-2021 End: 11-02-[address] BLAYNE ISABEL . Facility:[facility] Start: 10-31-2021 End: 11-01-[address] BLAYNE ISABEL . Facility:[facility] Start: 10-25-2021 End: 10-25-2021 ambulatory Oumou Reji Other [employer] Other Start: 10-25-2021 Office outpatient ne w 45 minutes Oumou Reji [facility] Start: 10-18-2021 End: 10-19-[address] BLAYNE ISABEL . Facility:[facility] Start: 10-17-2021 Encounter for other specified special [facility] Start[facility] 10-17-2021 Encounter for [facility]ced[facility] Start: 10-16-2021 End: 10-17-[address] BLAYNE ISABEL . Facility:[facility] Start: 10-16-2021 End: 10-17-2021 Encounter for other specified special examinations DR DOCTOR MILES Facility:[facility] Start: 10-13-2021 End: 10-21-2021 ambulatory PHYSICIAN BRAD[place]ORD Facility:[facility] Start: 10-10-2021 End: 10-11-[address] BLAYNE [...] Evaluation and management of inpatient LEISA PERRY [facility] Start: 05-24-2021 End: 05-26-2021 ambulatory OCTAVIO Jj [facility] Start: 05-24-2021 End: 05-26-2021 Subsequent hospital visit by physician Octavio Mcclellan DO Work Phone: [facility] Ortho/Med Surg Comment on above: S/P laparoscopic sle may gastrectomy (Primary Dx) Start: 05-08-2021 End: 05-08-2021 Subsequent hospital visit by physician Twyla Pat 2 [facility] Pre-Admit Testing Comment on above: Canceled (Other) Start: 05-08-2021 End: 05-11-2021 ambulatory OCTAVIO MCCLELLAN [facility] Start: 05-08-2021 End: 05-13-2021 ambulatory OCTAVIO Jj [facility] Start: 05-08-2021 End: 05-10-2021 Patient encounter status Stv [facility] Start: 05-08-2021 End: 05-10-2021 Subsequent hospital visit by physician Glory Mccracken [facility] Comment on above: Pre-op chest exam Start: 05-08-2021 End: 05-12-2021 Subsequent hospital visit by physician Twyla Mccracken Rm 2 [facility] Pre-Admit Testing Start: 05-05-2020 End: 05-05-2020 Patient encounter procedure Blayne Bañuelosy -Pre-Surgical Testing Start: 02-04-2020 End: 02-04-2020 Subsequent hospital visit by physician Suzanne Pruett Work Phone: [facility]chocardi[facility] Comment on above: Arrived Start: 01-08-2020 End: 01-08-2020 Subsequent hospital visit by physician Alexandro Muhammad Work Phone: [facility] Radiology Start: 01-08-2020 End: 01-08-2020 Office outpatient new 30 minutes Alexandro Muhammad Work Phone: [facility] Orthopedics Comment on above: Fluid retention in l egs (Primary Dx) Start: 06-10-2019 End: 06-11-2019 Patient encounter procedure [facility]ELVON [facility] Facility:[facility] Start: 04-16-2019 End: 04-19-2019 Patient encounter procedure ARSENIO BHATTI [facility] Start: 04-16-2019 End: 04-18-2019 Subsequent hospital visit by physician Nelson Xr Room 4 [facility] Comment on above: Injury Start: 04-11-2019 End: 04-11-2019 Emergency department patient visit [facility] Start: 04-11-2019 End: 04-11-2019 Emergency department patient visit [facility] Work Phone: [facility] ED Comment on above: Acute bilateral low back pain with right-sided sciatica (Primary Dx); Traumatic buttock pain Procedures Date Procedure Procedure Detail Performing Clinician Start: 11-21-2022 Antibody screen BLAYNE ISABEL Comment on above: Order Comment: Speci men Type: BLOOD SPECIMENOrdering Facility: [facility] Address: [address] [place], [place] [id number] Performed By: #### T [id number] ####CC MAIN BLOOD BANKCLIA [id number] [facility] [id number] [place], [place] [id number] [place] Start: 02-25-2022 Arthroplasty of knee Pa hiram MURILLO Start: 02-25-2022 Lumbar spinal fusion Pa zelalemvarghese MRUILLO Start: 01-24-[address] SHERRI MURILLO . Comment on above: Performed By: #### P TT #### [facility] [address] [place] [address] Dr. Hugh Landis Start: 07-13-2021 Cystoscopic removal [...] Start: 05-08-2021 Assay of nicotine Ever Mcclellan [employer] Work Phone: Start: 05-08-2021 Basic metabolic pane [...] Cancer Screening Discussion Prostate Cancer Screening Discussion [facility] Start: 01-24-2027 Prostate specific antigen measurement Prostate Cancer Screening Discussion [facility] Start: 02-12-2025 Adult BMI Screening Adult BMI Screening [facility] Start: 02-12-2025 Tobacco Screening Tobacco Screening [facility] Start: 12-04-2024 Adult BMI Screening Adult BMI Screening [facility] Start: 12-04-2024 Tobacco Screening Tobacco Screening [facility] Start: 10-26-2024 Influenza vaccination Influenza Vaccine (Season Ended) [facility] Start: 08-14-2024 Tobacco Screening Tobacco Screening [facility] Start: 02-15-2024 Adult BMI Screening Adult BMI Screening [facility] Start: 02-15-2024 Tobacco Screening Tobacco Screening [facility] Start: 02-13-2024 End: 02-13-2024 Patient encounter procedure 02/13/2024 10:45 AM EST Office Visit [facility] [address] [place] [address] Ahsan Flynn, PA [address] [place] [address] [facility] Start: 12-12-2023 Creatinine measurement Serum Creatinine [facility] Start: 12-12-2023 Serum Creatinine Serum Creatinine [facility] Start: 10-27-2023 Covid-19 Vaccine () Covid-19 Vaccine ( season) [facility] Start: 10-27-2023 Influenza vaccination [facility] Start: 10-07-2023 End: 10-07-2023 Follow-up encounter Neurosurgery Comment on above: FOLLOW UP Start: 2023 RSV Vaccine (1 - 1-dose 60+ series) RSV Vaccine (1 - 1-dose 60+ series) [facility] Start: 2023 RSV Vaccine (1 - Risk 60-74 years 1-dose series) RSV Vaccine (1 - Risk 60-74 years 1-dose series) [facility] Start: 08-15-2023 End: 08-15-2023 Patient encounter procedure 08/15/2023 11:15 AM EDT Office Visit [facility] [address] [place] [phone] Ahsan Flynn PA [address] [place] [address] [facility] Start: 05-22-2023 Hemoglobin A1c measurement HbA1C [facility] Start: 05-22-2023 Hemoglobin A1c/Hemoglobin.total in Blood HbA1C [facility] Start: 02-25-2023 Behavioral Health Screening Behavioral Health Screening [facility] Start: 02-25-2023 Depression Assessment Depression Assessment [facility] Start: 01-20-2023 End: 01-19-2024 Radex spine lumbosacral 2/3 views XR LUMBAR LIMITED 2V AP/LAT Radiology Routine Lumbar adjacent segment disease with spondylolisthesis Expected: 01/20/2023, Expires: 01/19/2024 [facility] Work Phone: Comment on above: Expected: 01/20/2023, Expires: Start: 10-26-2022 Covid-19 Vaccine ( season) Covid-19 Vaccine ( season) [facility] Start: 10-26-2022 Influenza vaccination [facility] Start: 05-25-2022 Creatinine measurement Creatinine monitoring [facility] Start: 05-25-2022 Potassium monitoring Potassium monitoring [facility] Start: 05-08-2022 Creatinine measurement Creatinine monitoring [facility] Start: 05-08-2022 Potassium monitoring Potassium monitoring [facility] Start: 02-25-2022 DEPRESSION ASSESSMENT DEPRESSION ASSESSMENT [facility] Start: 01-03-2022 Hemoglobin A1c measurement A1C test (Diabetic or Prediabetic) [facility] Start: 01-03-2022 Lipid panel Lipid screen [facility] Start: 10-26-2021 Influenza vaccination Flu vaccine (Season Ended) [facility] Start: 06-06-2021 End: 06-06-2021 Patient encounter procedure 06/06/2021 Office Visit Oncology Spencer Guy MD [address] [place] [address] [facility] Start: 06-02-2021 End: 06-02-2021 Patient encounter procedure 06/02/2021 Office Visit Bariatrics Octavio Mcclellan DO [address] [place] [phone] [facility] Invasive Bariatric Surg Start: 05-24-2021 End: 05-24-2021 Admission to same day surgery center [facility] Comment on above: XI ROBOTIC LAPOROSCOPIC GASTRECTOMY SLEE VE, LIVER BIOPSY, EGD- GI SCHEDULED XI ROBOTIC LAPOROSCO PIC GASTRECTOMY SLEEVE, LIVER BIOPSY, EGD- GI SCHEDULED, POSSIBLE OPEN Start: 05-24-2021 End: 05-24-2021 Laps gstrc rstrictiv px longitudinal gastrectomy [facility] Start: 05-24-2021 Subsequent hospital visit by physician 05/24/2021 Hospital Encounter IP Unit Octavio Mcclellan DO [address] [place] [id number] [facility] Start: 05-19-2021 End: 05-19-2021 Patient encounter procedure 05/19/2021 Appointment Pre-Admission Testing [facility] PRE ADMIT Start: 05-18-2021 End: 05-18-2021 Patient encounter procedure 05/18/2021 Office Visit Bariatrics JerodOctavio, DO [address] [place] [address] [facility] Invasive Bariatric Surg Start: 10-26-2020 Influenza vaccination Flu vaccine (#1) [facility] [place] [employer] Start: 04-04-2020 End: 04-04-2020 Office Visit 04/04/2020 Office Visit Cardiovascular Medicine Suzanne Pruett MD [address] [place] [address] [phone] [facility] Start: 02-02-2020 End: 02-02-2020 Office Visit 02/02/2020 Office Visit Cardiovascular Medicine Suzanne Pruett MD [address] [place] [address] [phone] [facility] Start: 10-27-2019 Influenza vaccination INFLUENZA VACCINE (#1) [facility] Start: 10-26-2018 Influenza vaccination Flu vaccine (#1) [employer] Phone: Start: 09-10-2018 PROSTATE CANCER SCREENING DISCUSSION PROSTATE CANCER SCREENING DISCUSSION [facility] Start: 09-10-2013 Administration of varicella zoster vaccine Zoster (Shingles) Vaccine (1 of 2) [facility] Start: 09-10-2013 Colon cancer screen colonoscopy Colon cancer screen colonoscopy [employer] Phone: Start: 09-10-2013 Colonoscopy COLORECTAL CANCER SCREENING DISCUSSION [facility] Start: 09-10-2013 Prostate specific antigen measurement PROSTATE CANCER SCREENING DISCUSSION [facility] Start: 09-10-2013 Shingles Vaccine (1 of 2) Shingles Vaccine (1 of 2) [facility] Start: 09-10-2013 SHINGRIX VACCINE (1 of 2) SHINGRIX VACCINE (1 of 2) [facility] Start: 09-10-2013 Zoster vaccine hzv live for subcutaneous use ZOSTER (SHINGLES) VACCINE (1 of 2) [facility] Start: 09-10-2008 COLOGUARD (FIT-DNA) COLOGUARD (FIT-DNA) [facility] Start: 09-10-2008 Colonoscopy COLONOSCOPY [facility] Start: 09-10-2008 COLORECTAL CANCER SCREENING COLORECTAL CANCER SCREENING [facility] Start: 09-10-[address] COLONOGRAPHY [facility] Start: 09-10-2008 DIABETES SCREEN DIABETES SCREEN [facility] Start: 09-10-2008 Diabetes Screening Diabetes Screening [facility] Start: 09-10-2008 FECAL OCCULT BLOOD FECAL OCCULT BLOOD [facility] Start: 09-10-2008 Screening for malignant neoplasm of colon [facility] Start: 09-10-2008 SIGMOIDOSCOPY SIGMOIDOSCOPY [facility] Start: 2003 Diabetes screen Diabetes screen [facility] [employer] Phone: Start: 2003 Fasting lipid profile LIPID SCREENING [facility] [employer] Start: 2003 Lipid screen Lipid screen [facility] Phone: Start: 09-10-1998 Lipid 1996 panel - Serum or Plasma Lipid Screening [facility] Start: 09-10-1998 LIPID SCREEN LIPID SCREEN [facility] Start: 09-10-1982 DTaP,Tdap and Td Vaccines (1 - Tdap) DTaP,Tdap and Td Vaccines (1 - Tdap) [facility] Start: 09-10-1982 DTaP/Tdap/Td vaccine (1 - Tdap) DTaP/Tdap/Td vaccine (1 - Tdap) [facility] Start: 09-10-1982 Hepatitis B vaccine (1 of 3 - Risk 3-dose series) Hepatitis B vaccine (1 of 3 - Risk 3-dose series) [facility] Start: 09-10-1982 Pneumococcal Vaccine: 50+ (1 of 2 - PCV) Pneumococcal Vaccine: 50+ (1 of 2 - PCV) [facility] Start: 09-10-1982 Third diphtheria, tetanus and acellular pertussis (DTaP) vaccination TDAP (ADULT) [facility] Start: 09-10-1982 Urine microalbumin profile [facility] Start: 09-10-1981 Adult BMI Follow Up Plan Adult BMI Follow Up Plan [facility] Start: 09-10-1981 Annual PCP Team Chronic Disease Visit Annual PCP Team Chronic Disease Visit [facility] Start: 09-10-1981 BP Controlled (<130/80) BP Controlled (<130/80) [facility] Start: 09-10-1981 Depression Screening Depression Screening [facility] Start: 09-10-1981 Diabetic retinal exam Diabetic retinal exam [facility] Start: 09-10-1981 Hepatitis B surface antibody level LDL Cholesterol [facility] Start: 09-10-1981 HEPATITIS C SCREENING HEPATITIS C SCREENING [facility] Start: 09-10-1981 Hepatitis C screening Hepatitis C Screening [facility] Start: 09-10-1981 HIV SCREENING HIV SCREENING [facility] Start: 09-10-1981 HIV screening HIV Screening [facility] Start: 09-10-1981 Tetanus vaccination TETANUS [facility] Start: 09-10-1981 Urine screening for protein Diabetic microalbuminuria test [facility] Start: 09-10-1978 HIV screen HIV screen [facility] Phone: Start: 09-10-1978 HIV screening HIV screen [facility] Start: 09-10-1976 HIV screening HIV SCREENING DISCUSSION [employer] Start: 1975 Depression Screen Depression Screen [facility] Start: 1975 Depression Screening Depression Screening [facility] Start: 09-10-1974 DTaP/Tdap/Td vaccine (1 - Tdap) DTaP/Tdap/Td vaccine (1 - Tdap) [facility] [employer] Phone: Start: 09-10-1973 3 comp foot exam completed Diabetic Foot Exam [facility] Start: 09-10-1973 Diabetic foot examination Diabetic foot exam [facility] Start: 09-10-1973 Glaucoma screening Dilated Retinal Exam [facility] Start: 09-10-1973 Hepatitis B screening Urine Albumin:Creatinine Ratio [facility] Start: 09-10-1973 Hepatitis C antibody, confirmatory test Dilated Retinal Exam [facility] Start: 09-10-1969 Pneumococcal 0-64 years Vaccine (1 of 2 - PPSV23) Pneumococcal 0-64 years Vaccine (1 of 2 - PPSV23) [facility] Start: 09-10-1969 Pneumococcal vaccination [facility] Start: 09-10-1968 COVID-19 Vaccine (1) COVID-19 Vaccine (1) [employer] Start: 03-13-1964 COVID-19 VACCINE (#1) COVID-19 VACCINE (#1) [facility] Start: 1963 Hepatitis C antibody, confirmatory test HEPATITIS C VIRUS SCREENING [employer] Start: 1963 Hepatitis C screen Hepatitis C screen [employer] Phone: Start: 1963 Hepatitis C screening Hepatitis C screen [employer] Start: 1963 Potassium [Moles/Vol] POTASSIUM [employer] Bacteria identified in Urine by Culture [facility] Chlamydia trachomati s DNA [Presence] in Unspecified specimen by MUKUL with probe detection [facility] Work Phone: Continuous pulse oximetry Pulse oximetry, continuous Respiratory Care Routine Every 4hr until discontinued starting 05/24/2021 [employer] Phone: Comment on above: Every 4hr until discontinued starting CT LUMBAR SPINE WO CONTRAST CT LUMBAR SPINE WO CONTRAST Imaging STAT 04/11/2019 1:43 PM EST [employer] Phone: Neisseria gonorrhoea e DNA [Presence] in Unspecified specimen by MUUKL with probe detection [facility] Work Phone: Oxygen therapy [[facility] Data Set] Initiate Oxygen Therapy Protocol Respiratory Care Routine As Needed until discontinued starting 05/24/2021 [employer] Phone: Comment on above: As Needed until discontinued starting Radiography for bone length studies XR BONE LENGTH STUDY Imaging Routine Hx of total knee arthroplasty, right 01/08/2020 1:37 PM EST [employer] Renal function 2000 panel - Serum or Plasma [facility] Spirometry panel Incentive silverio metry Respiratory Care Routine Every 2hr while awake until discontinued starting 05/24/2021 [employer] Phone: Comment on above: Every 2hr while awake until discontinued starting 05/24/2021 Surgical Pathology Surgical Path ology Lab Routine Release Upon Ordering for 1 Occurrences starting 05/24/2021 [employer] Phone: Comment on above: Release Upon Ordering for 1 Occurrences starting 05/24/2021 Trichomonas vaginali s DNA [Presence] in Unspecified specimen by MUKUL with probe detection [facility] Work Phone: X-ray of right knee XR KNEE RIGH T 3 VIEWS Imaging Routine Hx of total knee arthroplasty, right 01/08/2020 1:37 PM [facility] End: 06-06-2024 XR Lumbar spine AP and Lateral XR LUMBAR LIMITED 2V AP/LAT Radiology Routine Radiculopathy, lumbar region 1 Occurrences starting 05/08/2023 until 06/06/2024 [facility] Work Phone: Comment on above: 1 Occurrences starting 05/08/2023 until 06/06/2024 [facility] Immunizations Immunization Date Immunization Notes Care Provider Jazmin mariscal 05-08-2023 influenza virus vacc ine, unspecified formulation Thomas Mathew MD Work Phone: [facility] Payers Date Payer Category Payer Self-pay [id number] 2019 Private Health Insurance [id number] [id number] 2019 Worker's Compensation 2019 Government (not [facility] care or Medicaid) [facility] [place] [address] [place] [address] [id number]. [id number] 2019 Unknown HEALTH MANAGEMEN T SOLUTIONS HEALTH MGMT SOLUTIONS [facility] [employer] xxxxxxxx 2019-Present [phone] [place] [address] xxxxxxxx 1.2.840.662019.1.13.239. 2.7.3.432844.315 2019 Unknown [id number] 2019 Unknown [id number] 2019 Unknown HEALTH MANAGEMEN T SOLUTIONS HEALTH MGMT SOLUTIONS [facility] [employer] xxxxx 2019-Present [phone] [place] [address] xxxxx 1.2.840.853554.1.13.239. 2.7.3.681342.315 2019 Unknown [id number]. 1.13.159. 2.7.3.448466.315 2019 Worker's Comp Other Managed Care [facility] 1.2.840.653336.1.13.424. 2.7.9.504067.306.315 2019 Unknown [id number] 2014 Private Health Insurance [id number] 2014 Private Health Insurance BRENTON Carlos KATI xxxxxxxxxx 2014-Present [phone] [address] [place] [address] xxxxxxxxxx 1.2.840.067925.1.13.239. 2.7.3.434004.315 2013 Private Health Insurance 1963 Unknown [id number] 2.16.840.1.932247.3.579. 2.176 1963 Unknown [id number] 2.16.840.1.868808.3.579. 2.176 1963 Unknown [id number] 2.16.840.1.546734.3.579. 2.176 1963 Unknown [id number] 2.16.840.1.880768.3.579. 2.196 1963 Unknown [id number] 2.16.840.1.580658.3.579. 2.175 1963 Unknown [id number] 2.16.840.1.836127.3.579. 2.647 1963 Unknown [id number] 2.16.840.1.567106.3.579. 2.593 1963 Unknown [id number] 2.16.840.1.738546.3.579. 2.593 1963 Unknown [id number] 2.16.840.1.433170.3.579. 2.593 1963 Unknown [id number] 2.16.840.1.411975.3.579. 2.593 1963 Unknown [id number] 2.16.840.1.667560.3.579. 2.593 1963 Unknown [id number] 2.16.840.1.953788.3.579. 2.593 1963 Unknown [id number] 2.16.840.1.835414.3.579. 2.593 1963 Unknown [id number] 2.16.840.1.513249.3.579. 2.593 1963 Unknown [id number] 2.16.840.1.195267.3.579. 2.593 1963 Unknown [id number] 2.16.840.1.317617.3.579. 2.593 1963 Unknown [id number] 2.16.840.1.685131.3.579. 2.593 1963 Unknown [id number] 2.16.840.1.493223.3.579. 2.59 1963 Unknown [id number] 2.16.840.1.131999.3.579. 2.59 1963 Unknown [id number] 2.16840.1.806956.3.579. 2.59 1963 Unknown [id number] 2.16840.1.570096.3.579. 2.59 1963 Unknown [id number] 2.840.1.437877.3.579. 259 1963 Unknown [id number] 2.840.1.902721.3.579. 259 1963 Unknown [id number] 2.840.1.124643.3.579. 259 1963 Unknown [id number] 2.840.1.253146.3.579. 2.59 1963 Unknown [id number] 2.840.1.840062.3.579. 259 1963 Unknown [id number] 2.840.1.917165.3.579. 2.59 1963 Unknown [id number] 2.840.1.686009.3.579. 2.59 1963 Unknown [id number] 2.840.1.998331.3.579. 2.59 1963 Unknown [id number] 2.840.1.520097.3.579. 2.1286 1963 Unknown [id number] 2.16840.1.516868.3.579. 2.128 1963 Unknown [id number] 2.840.1.582512.3.579. 2.1286 1963 Unknown [id number] 2.16.840.1.855518.3.579. 2.727 1963 Unknown [id number] 2.16.840.1.836634.3.579. 2.727 1963 Unknown [id number] 2.16.840.1.248106.3.579. 2.727 1963 Unknown [id number] 2.16.840.1.332983.3.579. 2.727 1959 Unknown [id number] 1.2.840.150456.1.13.239. 2.7.3.342237.315 1959 Unknown [id number] Self-pay Self Pay Cosmet[facility] c/Pain Mgmt [id number] Unknown [id number] 2.16.840.1.979668.3.579. 2.531 Unknown [id number] 2.16.840.1.941313.3.579. 2.531 Unknown [id number] 2.16.840.1.539594.19 Social History Date Type Detail Facility Start: 04-11-2019 End: 08-07-2024 Tobacco smoking status NJIS Never smoker [employer] Start: 04-11-2019 End: 05-25-2021 Alcohol intake Lifetime non-drinker (finding) [employer] Phone: Start: 04-11-2019 End: 01-08-2020 History SDOH Alcohol Frequency 1 [employer] Phone: Start: 1965 Sex Assigned At Not on file [facility] [employer] Phone: Start: 11-26-2013 End: 01-08-2020 Tobacco use and exposure Never used [employer] Start: 1965 Sex Assigned At Male F [facility] Start: 04-08-2021 End: 05-24-2021 Exposure to SARS-CoV-2 (event) Not sure [employer] Phone: Start: 11-05-2022 End: 03-25-2023 Sex Assigned At [facility] Start: 01-26-2014 End: 03-25-2023 Alcohol intake Current non-drinker of alcohol (finding) [facility] Tobacco smoking status Never [facility] Start: 11-05-2022 End: 03-25-2023 [facility] Start: 12-05-2023 End: 02-13-2024 Alcoholic beverage intake [facility] Start: 06-08-2009 End: 09-30-2014 Sex Male (finding) [facility] Sexual Orientation [facility] Medical Equipment Procedure Code Equipment Code Equipment Origin al Text Equipment Identifier Dates CYSTOSCOPY W/ HO MIUM LASER Octavio ARAIZA MD 03/28/20 Unknown Abdomen {[id number] FDA Start: 03-28-2020 Screw Darby 3 Alicia nium Set [facility] - [id number] Start: 12-07-2022 Screw Darby 3 Serr eladio 6.5mm 50mm Bone Polyaxial Nonsterile Spine - [id number] Start: 12-07-2022 Vitoss Ba2x Bioactive Bone Graft Substitute 5.0cub Cm [id number] Start: 12-07-2022 Cage Tritanium 6 d [id number] Spinal Sterile Latex Free Lumbar Posterior - [id number] Start: 12-07-2022 Cage Tritanium 6 d [id number] Spinal Sterile Latex Free Lumbar Posterior - [id number] Start: 12-07-2022 Screw Darby 3 Serr eladio 6.5mm 45mm Bone Polyaxial Nonsterile Spine - [id number] Start: 12-07-2022 Goals Date Patient Goal Desired Activity /State Functional Status Date Assessment Result Facility 02-04-2023 Functional Status N/A [facility] 12-11-2022 Are you deaf, or do you have serious difficulty hearing No 12/11/2022 12:52 PM EDT Livia Calix RN No [facility] 12-11-2022 Are you blind, or do you have serious difficulty seeing, even when wearing glasses No 12/11/2022 12:52 PM EDT Livia Calix RN No [facility] 12-11-2022 Do you have serious difficulty walking or climbing stairs No 12/11/2022 12:52 PM EDT Livia Calix RN No [facility] 12-11-2022 Do you have difficul ty dressing or bathing No 12/11/2022 12:52 PM EDT Livia Calix RN No [facility] 12-11-2022 Because of a physica l, mental, or emotional condition, do you have difficulty doing errands alone such as visiting a physician's office or shopping No 12/11/2022 12:52 PM EDT Livia Calix RN [facility] 10-17-2022 Functional Status N/A General Anaya [facility] 03-19-2022 Functional Status N/A [facility] Mental Status Date Assessment Result Facility 12-11-2022 Because of a physica l, mental, or emotional condition, do you have serious difficulty concentrating, remembering, or making decisions No 12/11/2022 12:52 PM EDT Livia Calix RN [facility] Clinical Notes 05-03-2021 to 08-07-2024 Telephone Encounter [...] include: ?8 oz (237 mL) of milk, bbatokz-eqluzpcxdkbs-vjoyd milk, and calcium-fortifiedfruit juice. Calcium-fortified means that [...] ?Spinach (cooked), rhubarb, beets, sweet potatoes, and Kuwaiti chard. ?Peanuts. ?Potato chips, malaysian fries, and baked potatoes with skin on. ?Nuts and nut products. ?Chocolate. If you regularly take a diuretic medicine, make sure to eat at least 1 or 2 servings of fruits or vegetables that are high in potassium each day. These include: ?Avocado. ?Banana. ?Verdi, prune, carrot, or tomato juice. ?Baked potato. [...] magnesium, fish oil, or vitamin B6. Take vyfl-qhq-wlidkdz and prescription medicines only as told by [...] Casseroles. Pizza. Lasagna. Frozen meals. Potato chips. Chilean fries. The items listed above may not [...] provider. Document Revised: 05/24/2022 Document Reviewed: 05/24/2022 [employer] Patient Education 2023 [employer] Follow Up Care 07/03/2024 14:31:41 With:LIDIA JACOBS, Cecelia Jj, URL Address: [address] [employer] [place], [place] [address]- When: Unknown [facility] 08-07-2024 Note Patient Education Nephrology Dietary [...] ? 8 oz (237 mL) of milk, bxaqttj-vosmxmkmkcss-djqnc milk, and calcium-fortifiedfruit juice. Calcium-fortified means that [...] Spinach (cooked), rhubarb, beets, sweet potatoes, and Kuwaiti chard. ? Peanuts. ? Potato chips, malaysian fries, and baked potatoes with skin on. ? Nuts and nut products. ? Chocolate. ??? If you regularly take a diuretic medicine, make sure to eat at least 1 or 2 servings of fruits or vegetables that are high in potassium each day. These include: ? Avocado. ? Banana. ? Verdi, prune, carrot, or tomato juice. ? Baked [...] fish oil, or vitamin B6. ??? Take [id number] and prescription medicines only as told by your health (more content not included)... [facility] 06-17-2024 Note Orthopedic Surgery Subjective Chief [...] of the right knee completed at [facility] which we do not have access [...] well perfused extremiti (more content not included)... [facility] 05-18-2024 Note Orthopedic Surgery Subjective [...] of the right knee completed at [facility] which we do not have access [...] the right k (more content not included)... [facility] 04-10-2024 Miscellaneous Notes Patient brought [...] office visit notes can be submitted via [employer] [facility] Records. documented in this encounter [facility] 04-10-2024 Telephone encounter Note Patient brought in [...] office visit notes can be submitted via [facility] Medical Records. [facility] 03-03-2024 Miscellaneous Notes Patient called today to follow up on his request for a written statement stating that provider feels that patient is totally disabled. Patient is informed that this office does not write such letters, however, office notes can be faxed to his contracts attorney's office if that would be beneficial. documented in this encounter [facility] 03-03-2024 Telephone encounter Note Patient called today to follow up on his request for a written statement stating that provider feels that patient is totally disabled. Patient is informed that this office does not write such letters, however, office notes can be faxed to his contracts attorney's office if that would be beneficial. [facility] 02-13-2024 History of Present illness Narrative [facility] [address] [place] [address] Patient: Sukhdeep Simental Sex: male : 1965 Age: 58 y.o. PCP: BLAYNE ISABEL MD 02/13/2024 Sukhdeep Simental is here for a(n) follow up for his [facility] work injury. 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 Chief Complaint Patient presents with Back Pain [facility] HPI: 12/07/2022 L2/3 fusion and revised L3/4, S1 at [facility] per patient. Bilateral SI joint injection on 04/17/2021 with 10% relief, pain is worse. 07/07/21 Bilateral L3/4 Medial branch block with no relief. right L 3, 4 nerve root injection on 09/01/2021 with no relef. Back Pain This is a chronic problem. The current episode started more than 1 year ago (surgery 10/16/18 discectomy and 07/10/2019 fusion in [place]). The problem occurs constantly. The problem is [...] disorder Claustrophobia Diabetes mellitus type 2, controlled ([facility]) Fractures Hyperlipidemia Hypertension Joint pain Low back pain Major depression Obesity Osteoarthritis Pulmonary embolism ([facility]) Seasonal allergies Sleep apnea does not use machine Sleep apnea Visual impairment glasses Past Surgical History: Procedure Laterality Date ANKLE SURGERY spurs removed INJECTION BLOCK EPIDURAL CAUDAL STEROID N/A 10/27/2021 Performed by Darren Lackey MD at [facility] INJECTION BLOCK NERVE MEDIAL BRANCH: bilat L 3/4 Bilateral 07/07/2021 Performed by Darren Lackey MD at [facility] INJECTION BLOCK SACROILIAC JOINT Bilateral 04/17/2021 Performed by Darren Lackey MD at [facility] SPINE TRANSFORAMINAL: right L 3,4 Nroot Right 09/01/2021 Performed by Darren Lackey MD at [facility] JOINT REPLACEMENT knees- right x2, left [...] Strain: Low Risk (03/28/2022) Received from [facility], [facility] Overall Financial Resource Strain (CARDIA) Difficulty of Paying Living Expenses: Not hard at all Food Insecurity: No Food Insecurity (12/05/2023) Hunger Screening Food Insecurity - Worry: Never True Food Insecurity - Inability: Never True Transportation Needs: Unknown (03/28/2022) Received from [facility], [facility] PRAPARE - Transportation Lack of Transportation (Medical): No Lack of Transportation (Non-Medical): Not on file Physical Activity: Inactive (12/01/2021) Received from [facility], [facility] Exercise Vital Sign Days of Exercise per Week: 0 days Minutes of Exercise per Session: 20 min Stress: No Stress Concern Present (12/01/2021) Received from [facility], [facility] [employer] - Occupational Stress Questionnaire Feeling of Stress : Not at all Social Connections: Moderately Isolated (12/01/2021) Received from [facility], [facility] Social Connection and Isolation Panel [NHANES] Frequency of Communication with Friends and Family: More than three times a week Frequency of Social Gatherings with Friends and Family: Once a week Attends Baptism Services: Never Active Member of Clubs or Organizations: No Attends Club or Organization Meetings: Never Marital Status: Interpersonal Safety: Unknown (04/18/2023) Received from [facility] [place] Safety [place] Fear of Current or Ex-Partner: Not on file Emotionally Abused: Not on file Physically Abused: Not on file Sexually Abused: Not on file Physically or Sexually Abused: Not on file Housing Instability: Unknown (03/28/2022) Received from [facility], [facility] Housing Stability Vital Sign Unable to [...] Agustin 02/13/24 1603 documented in this encounter [facility] 12-05-2023 History of Present illness Narrative [facility] [address] [place] [address] Patient: Sukhdeep Simental Sex: male : 1965 Age: 58 y.o. PCP: BLAYNE ISABEL MD 12/05/2023 Sukhdeep Simental is here for a(n) follow up for his [facility] work injury. He reports he remains about the same as last visit. Chief Complaint Patient presents with Back Pain HPI: 12/07/2022 L2/3 fusion and revised L3/4, S1 at [facility] per patient. Bilateral SI joint injection on 04/17/2021 with 10% relief, pain is worse. 07/07/21 Bilateral L3/4 Medial branch block with no relief. right L 3, 4 nerve root injection on 09/01/2021 with no relef. Back Pain This is a chronic problem. The current episode started more than 1 year ago (surgery 10/16/18 discectomy and 07/10/2019 fusion in [place]). The problem occurs constantly. The problem is [...] disorder Claustrophobia Diabetes mellitus type 2, controlled ([facility]) Fractures Hyperlipidemia Hypertension Joint pain Low back pain Major depression Obesity Osteoarthritis Pulmonary embolism ([facility]) Seasonal allergies Sleep apnea does not use machine Sleep apnea Visual impairment glasses Past Surgical History: Procedure Laterality Date ANKLE SURGERY spurs removed INJECTION BLOCK EPIDURAL CAUDAL STEROID N/A 10/27/2021 Performed by Darren Lackey MD at [facility] INJECTION BLOCK NERVE MEDIAL BRANCH: bilat L 3/4 Bilateral 07/07/2021 Performed by Darren Lackey MD at [facility] INJECTION BLOCK SACROILIAC JOINT Bilateral 04/17/2021 Performed by Darren Lackey MD at [facility] INJECTION SPINE TRANSFORAMINAL: right L 3,4 Nroot Right 09/01/2021 Performed by Darren Lackey MD at [facility] JOINT REPLACEMENT knees- right x2, left [...] Strain: Low Risk (03/28/2022) Received from [facility], [facility] Overall Financial Resource Strain (CARDIA) Difficulty of Paying Living Expenses: Not hard at all Food Insecurity: No Food Insecurity (12/05/2023) Hunger Screening Food Insecurity - Worry: Never True Food Insecurity - Inability: Never True Transportation Needs: Unknown (03/28/2022) Received from [facility], [facility] PRAPARE - Transportation Lack of Transportation (Medical): No Lack of Transportation (Non-Medical): Not on file Physical Activity: Inactive (12/01/2021) Received from [facility], [facility] Exercise Vital Sign Days of Exercise per Week: 0 days Minutes of Exercise per Session: 20 min Stress: No Stress Concern Present (12/01/2021) Received from [facility], [facility] [employer] - Occupational Stress Questionnaire Feeling of Stress : Not at all Social Connections: Moderately Isolated (12/01/2021) Received from [facility], [facility] Social Connection and Isolation Panel [NHANES] Frequency of Communication with Friends and Family: More than three times a week Frequency of Social Gatherings with Friends and Family: Once a week Attends Baptism Services: Never Active Member of Clubs or Organizations: No Attends Club or Organization Meetings: Never Marital Status: Interpersonal Safety: Unknown (04/18/2023) Received from [facility] Safety & Environment Fear of Current or Ex-Partner: Not on file Emotionally Abused: Not on file Physically Abused: Not on file Sexually Abused: Not on file Physically or Sexually Abused: Not on file Housing Instability: Unknown (03/28/2022) Received from [facility], [facility] Housing Stability Vital Sign Unable to [...] Agustin 12/12/23 0942 documented in this encounter [facility] 10-07-2023 Telephone encounter Note Pt phoned to ensure todays appt was via phone as noted in appt. Pt unable to manage computer. [facility] 10-07-2023 Miscellaneous Notes Pt phoned to ensure todays appt was via phone as noted in appt. Pt unable to manage computer. documented in this encounter [facility] 10-04-2023 Telephone encounter Note [facility] report XR Lumbar Spine 2-3v scanned to Epic [facility] 10-04-2023 Miscellaneous Notes [facility] report XR Lumbar Spine 2-3v scanned to Epic documented in this encounter [facility] 08-15-2023 History of Present illness Narrative [facility] [address] [place] [address] Patient: Sukhdeep Simental Sex: male : 1965 Age: 57 y.o. PCP: BLAYNE ISABEL MD 08/15/2023 Sukhdeep Simental is here for a(n) follow up for his [facility] work injury. He reports he has pain higher than before surgery. Chief Complaint Patient presents with Back Pain HPI: 12/07/2022 L2/3 fusion and revised L3/4, S1 at [facility] per patient. Bilateral SI joint injection on 04/17/2021 with 10% relief, pain is worse. 07/07/21 Bilateral L3/4 Medial branch block with no relief. right L 3, 4 nerve root injection on 09/01/2021 with no relef. Back Pain This is a chronic problem. The current episode started more than 1 year ago (surgery 10/16/18 discectomy and 07/10/2019 fusion in [place] The problem occurs constantly. The problem has [...] disorder Claustrophobia Diabetes mellitus type 2, controlled ([facility]) Fractures Hyperlipidemia Hypertension Joint pain Low back pain Major depression Obesity Osteoarthritis Pulmonary embolism ([facility]) Seasonal allergies Sleep apnea does not use machine Sleep apnea Visual impairment glasses Past Surgical History: Procedure Laterality Date ANKLE SURGERY spurs removed INJECTION BLOCK EPIDURAL CAUDAL STEROID N/A 10/27/2021 Performed by Darren Lackey MD at [facility] INJECTION BLOCK NERVE MEDIAL BRANCH: bilat L 3/4 Bilateral 07/07/2021 Performed by Darren Lackey MD at [facility] INJECTION BLOCK SACROILIAC JOINT Bilateral 04/17/2021 Performed by Darren Lackey MD at [facility] SPINE TRANSFORAMINAL: right L 3,4 Nroot Right 09/01/2021 Performed by Darren Lackey MD at [facility] JOINT REPLACEMENT knees- right x2, left [...] Low Risk (03/28/2022) Received from [facility], [facility] Overall Financial Resource Strain (CARDIA) Difficulty of Paying Living Expenses: Not hard at all Food Insecurity: No Food Insecurity (08/15/2023) Hunger Screening Food Insecurity - Worry: Never True Food Insecurity - Inability: Never True Transportation Needs: Unknown (03/28/2022) Received from [facility], [facility] PRAPARE - Transportation Lack of Transportation (Medical): No Lack of Transportation (Non-Medical): Not on file Physical Activity: Inactive (12/01/2021) Received from [facility], [facility] Exercise Vital Sign Days of Exercise per Week: 0 days Minutes of Exercise per Session: 20 min Stress: No Stress Concern Present (12/01/2021) Received from [facility], [facility] [employer] - Occupational Stress Questionnaire Feeling of Stress : Not at all Social Connections: Moderately Isolated (12/01/2021) Received from [facility], [facility] Social Connection and Isolation Panel [NHANES] Frequency of Communication with Friends and Family: More than three times a week Frequency of Social Gatherings with Friends and Family: Once a week Attends Baptism Services: Never Active Member of Clubs or Organizations: No Attends Club or Organization Meetings: Never Marital Status: Interpersonal Safety: Unknown (04/18/2023) Received from [facility] [place] Fear of Current or Ex-Partner: Not on file Emotionally Abused: Not on file Physically Abused: Not on file Sexually Abused: Not on file Physically or Sexually Abused: Not on file Housing Instability: Unknown (03/28/2022) Received from [facility], [facility] Housing Stability Vital Sign Unable to [...] Agustin 08/15/23 1311 documented in this encounter [facility] 07-30-2023 Telephone encounter Note Called Sukhdeep, no answer, left VM [facility] Work Phone: 07-30-2023 Miscellaneous Notes Called Sukhdeep, no answer, left VM Have sent XR Lumbar order to [facility] fax # [phone] as requested from patient. Pt phoned regarding upcoming visit 10/06 [employer] comp appt. Pt unable to manage virtual visit asking for telephone visit. Pt asking how far in advance to do X-Ray. Pt will have X-Ray done locally at [facility]. Please call and advise Pt phone # [phone] documented in this encounter [facility] 07-30-2023 Telephone encounter Note Have sent XR Lumbar order to [facility] fax # [phone] as requested from patient. [facility] 07-30-2023 Telephone encounter Note Pt phoned regarding upcoming visit 10/06 [employer] appt. Pt unable to manage virtual visit asking for telephone visit. Pt asking how far in advance to do X-Ray. Pt will have X-Ray done locally at [facility]. Please call and advise Pt phone # [phone] [facility] 07-26-2023 Telephone encounter Note Office note faxed. Faxed verification received. [facility] 07-26-2023 Miscellaneous Notes Office note faxed. Faxed verification received. Printed for review. Received request from [employer] needing more info, in epic for review. documented in this encounter [facility] 07-23-2023 Telephone encounter Note Printed for review. [facility] 07-23-2023 Telephone encounter Note Received request from [employer] needing more info, in [employer] for review. [facility] 05-08-2023 History of Present illness Narrative SPINE SURGERY FOLLOW UP This is a virtual visit using Audio Only Visit. It required patient-provider interaction for the medical decision making as documented below. I have communicated my name and active licensure. The patient's identity and physical location were verified at the time of this visit. Either the patient or their legal member service representative has been informed of the risks [...] visit. Either the patient or their legal member service representative has been informed of the risks [...] 4:00 PM PAGER: documented in this encounter [facility] 05-08-2023 Miscellaneous Notes A letter was received from the law office of Jasper Loredo. 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 The information was reviewed by Nadiya Flynn PA-C and he would not like to amend the [facility] claim to allow the above mentioned condition. Call placed to the office of Jasper Loredo to inform him of provider's decision. No answer at the time call was made. Message left. documented in this encounter [facility] [employer] [facility] 05-08-2023 Telephone encounter Note A letter was received from the law office of Jasper Loredo. 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 The information was reviewed by Nadiya Flynn PA-C and he would not like to amend the [facility] claim to allow the above mentioned condition. Call placed to the office of Jasper Loredo to inform him of provider's decision. No answer at the time call was made. Message left. [facility] 05-07-2023 Miscellaneous Notes Call received from Hannah, patient's comp field case manager. She called as patient's MEDCO-14 is expiring soon. Hannah is informed that patient called about this and an updated MEDCO-14 was completed and faxed on 05/03/2023. Hannah states she is his comp field case manager and would like information sent [...] will be 05/15/2023-11/14/2023. documented [facility] 05-07-2023 Telephone encounter Note Call received from Hannah, patient's comp field case manager. She called as patient's MEDCO-14 is expiring soon. Hannah is informed that patient called about this and an updated MEDCO-14 was completed and faxed on 05/03/2023. Hannah states she is his comp field case manager and would like information sent [...] new dates for restrictions will be 05/15/2023-11/14/2023. [facility] [employer] [facility] 04-18-2023 Miscellaneous Notes Signed form faxed to number requested. Faxed verification received. Printed for review and signature. Received PT Certification from [facility]. Scanned to chart for provider signature. documented in this encounter [facility] 04-16-2023 Miscellaneous Notes Received imaging disc by mail from [facility]. Disc contains CT Lumbar spine done on 04/03/23. Will place in nurse folder in [address]. documented in this encounter [facility] 04-09-2023 Miscellaneous Notes Called & spoke with Sukhdeep Asked him to obtain imaging disc & send to our office. Will require images to be uploaded to assess for bony fusion at previous surgical site and adjacent segment disease. Received CT Lumbar Spine Report from [facility], in epic to review. documented in this encounter [facility] 02-14-2023 History of Present illness Narrative [facility] [address] [place] [address] Patient: Sukhdeep Simental Sex: male : 1965 Age: 57 y.o. PCP: BLAYNE ISABEL MD 02/14/2023 Sukhdeep Simental is here for a 6 month follow up for his [facility] work injury. Chief Complaint Patient presents with Back Pain HPI: 12/07/2022 L2/3 fusion and revised L3/4, S1 at [facility] per patient. Bilateral SI joint injection on 04/17/2021 with 10% relief, pain is worse. 07/07/21 Bilateral L3/4 Medial branch block with no relief. right L 3, 4 nerve root injection on 09/01/2021 with no relef. Back Pain This is a chronic problem. The current episode started more than 1 year ago (surgery 10/16/18 discectomy and 07/10/2019 fusion in [place] The problem occurs constantly. The problem has [...] disorder Claustrophobia Diabetes mellitus type 2, controlled ([facility]) Fractures Hyperlipidemia Hypertension Joint pain Low back pain Major depression Obesity Osteoarthritis Pulmonary embolism ([facility]) Seasonal allergies Sleep apnea does not use machine Sleep apnea Visual impairment glasses Past Surgical History: Procedure Laterality Date ANKLE SURGERY spurs removed INJECTION BLOCK EPIDURAL CAUDAL STEROID N/A 10/27/2021 Performed by Darren Lackey MD at [facility] INJECTION BLOCK NERVE MEDIAL BRANCH: bilat L 3/4 Bilateral 07/07/2021 Performed by Darren Lackey MD at [facility] INJECTION BLOCK SACROILIAC JOINT Bilateral 04/17/2021 Performed by Darren Lackey MD at [facility] INJECTION SPINE TRANSFORAMINAL: right L 3,4 Nroot Right 09/01/2021 Performed by Darren Lackey MD at [facility] JOINT REPLACEMENT knees- right x2, left [...] Rodriguez CNA 02/14/23 1258 SCARLET Agustin 02/21/23 115 documented in this encounter [facility] 02-07-2023 Miscellaneous Notes C9 for physical therapy faxed to [facility]. Faxed verification received. documented in this encounter [facility] 02-07-2023 History of Present illness Narrative SPINE [...] which included preparing to see the patient, [id number] patient care, completing clinical documentation, obtaining and/or reviewing separately obtained history, performing a medically appropriate examination, counseling and educating the patient/family/caregiver, and ordering medications, tests, or procedures. SIGNATURE: Riddhi Goss APRN.CNP PATIENT NAME: Sukhdeep Simental DATE: February 07, 2023 TIME: 2:39 PM PAGER: documented in this encounter [facility] 02-04-2023 Hospital Discharge instructions Patient Education 02/04/2023 [...] include: ?8 oz (237 mL) of milk, [id number] milk, and calcium-fortifiedfruit juice. Calcium-fortified means that [...] ?Spinach (cooked), rhubarb, beets, sweet potatoes, and Kuwaiti chard. ?Peanuts. ?Potato chips, malaysian fries, and baked potatoes with skin on. ?Nuts and nut products. ?Chocolate. If you regularly take a diuretic medicine, make sure to eat at least 1 or 2 servings of fruits or vegetables that are high in potassium each day. These include: ?Avocado. ?Banana. ?Verdi, prune, carrot, or tomato juice. ?Baked potato. [...] magnesium, fish oil, or vitamin B6. Take [id number] and prescription medicines only as told by [...] Casseroles. Pizza. Lasagna. Frozen meals. Potato chips. Chilean fries. The items listed above may not [...] provider. Document Revised: 05/24/2022 Document Reviewed: 05/24/2022 [employer] Patient Education 2022 [employer]. Follow Up Care 07/27/2022 14:20:34 With:LIDIA JACOBS, Cecelia Jj, URL Address: [facility] [address] , [place] [address]- When:Within 1 Year(s) Comments:w/CT AP w/o Con [facility] 01-23-2023 Miscellaneous Notes Received fax from [employer]. Scanned into [employer] Also received a RTW from [employer]. Scanned into [employer] as well. 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 documented in this encounter [facility] 12-20-2022 History of Present illness Narrative SPINE [...] which included preparing to see the patient, gdff-[id number] patient care, completing clinical documentation, obtaining and/or reviewing separately obtained history, performing a medically appropriate examination, counseling and educating the patient/family/caregiver, and ordering medications, tests, or procedures. SIGNATURE: Singh Morgan PA-C PATIENT NAME: Sukhdeep Simental DATE: December 20, 2022 TIME: 2:58 PM PAGER: documented in this encounter [facility] 12-17-2022 Miscellaneous Notes Forms completed and signed by provider. Faxed to number provided and and Sukhdeep notified via voice mail, as requested. Scanned into [email or web address]. Form completed. Awaiting signature. Printed for review. Received FMLA form by fax from patient's . Scanned to patient's chart for review and completion. documented in this encounter [facility] 12-13-2022 Miscellaneous Notes Spoke with patient at [...] a kenya. Xi Schrader PA-C Patient at [phone] is requesting a call back. He had back surgery on 12-07. He states for the past 2 days his right ring and little finger has been numb. documented in this encounter [facility] 12-12-2022 Miscellaneous Notes Spoke with pharmacy and was informed that medication is approved. No prior authorization needed. Patient called stating pharmacy needs a prior authorization for oxycodone 15 mg. I called the pharmacy on 12/12/2022 at 9:40 AM. Insurance will not pay for the frequency of medication written. They will cover q12h. Prescription changed to oxycodone 15 mg 12h. [facility] [address] [place] [id number] - [address] - [phone] Pharmacist at [employer] wanted to inform the office that this patient already takes Percocet 10-325 every 6 hours, picked it up 13 days ago. They tried running the Percocet but his insurance will not cover both. Please call them back with new instructions. documented in this encounter [facility] 12-11-2022 Note HNO ID: [id number] Author: Lulu Oviedo MD Service: General Internal [...] 10 mg tab( (more content not included)... [facility] 12-10-2022 Note HNO ID: [id number] Author: Lulu Oviedo MD Service: General Internal [...] 10% iv bolu (more content not included)... [facility] 12-09-2022 Note HNO ID: [id number] Author: Alyssa Tim APRN.CONDENSER TUBE TENDER Service: Neurosurgery Author Type: Nurse Practitioner Type: [...] is currently not well controlled despite Dilaudid RD MECHANICAL ENGINEER and Toradol. He denies new weakness, numbness, [...] mg ORAL q 8 H Alyssa Tim APRN.CONDENSER TUBE TENDER 1,000 mg at 12/09/22 0559 aluminum-magnesium hydroxide-simethicone 200-200-20 mg/5 mL 30 mL 30 mL ORAL q 6 H PRN Archual, Alyssa, JUVENILE JUSTICE OFFICER.CONDENSER TUBE TENDER bisacodyl EC 10 mg tab(s) (DULCOLAX) 10 mg ORAL DAILY PRN Archual, Alyssa, JUVENILE JUSTICE OFFICER.CONDENSER TUBE TENDER dextrose 40 % 15 g 15 g ORAL PRN Archual, Alyssa, JUVENILE JUSTICE OFFICER.CONDENSER TUBE TENDER Or glucagon 1 mg injection 1 mg INTRAMUSCULAR PRN Archual, Alyssa, JUVENILE JUSTICE OFFICER.CONDENSER TUBE TENDER Or dextrose 10% iv bolus 12.5 g INTRAVENOUS PRN Archual, Alyssa, JUVENILE JUSTICE OFFICER.CONDENSER TUBE TENDER docusate sodium 100 mg cap(s) (COLACE) 100 mg ORAL BID Thomas Mathew MD 100 mg at 12/09/22 0821 doxazosin 4 mg tab(s) (CARDURA) 4 mg ORAL DAILY Thomas Mathew MD 4 mg at 12/09/[address] MECHANICAL ENGINEER 20 mcg/mL in NaCl 0.9% 100 mL (SUBLIMAZE) INTRAVENOUS CONTINUOUS Archual, Alyssa, JUVENILE JUSTICE OFFICER.CONDENSER TUBE TENDER ferrous sulfate 325 mg tab(s) 325 mg ORAL DAILY Archual, Layssa, JUVENILE JUSTICE OFFICER.CONDENSER TUBE TENDER 325 mg at 12/09/22 0821 heparin 5,000 Units injection 5,000 Units SUBCUTANEOUS q 12 H Archual, Alyssa, JUVENILE JUSTICE OFFICER.CONDENSER TUBE TENDER 5,000 Units at 12/09/22 0821 hydrOXYzine HCl 25 mg tab(s) (ATARAX) 25 mg ORAL q 6 H PRN Archual, Alyssa, JUVENILE JUSTICE OFFICER.CONDENSER TUBE TENDER insulin lispro injection (rapid acting) (HumaLOG) SUBCUTANEOUS w MEALS AND HS Archual, Alyssa, JUVENILE JUSTICE OFFICER.CONDENSER TUBE TENDER 1 Units at 12/07/22 1803 lactated ringers iv infusion 75 mL/hr INTRAVENOUS CONTINUOUS Thomas Mathew MD 75 mL/hr at 12/09/22 1018 75 mL/hr at 12/09/22 1018 methocarbamol 750 mg tab(s) (ROBAXIN) 750 mg ORAL QID Archual, Alyssa, JUVENILE JUSTICE OFFICER.CONDENSER TUBE TENDER NaCl 0.9% iv flush bag 20 mL INTRAVENOUS PRN Thomas Mathew MD naloxone 0.1 mg injection (NARCAN) 0.1 mg INTRAVENOUS q 2 MIN PRN Archual, Alyssa, JUVENILE JUSTICE OFFICER.CONDENSER TUBE TENDER omeprazole 20 mg cap(s) (PriLOSEC) 20 mg [...] packet 17 g ORAL DAILY Archual, Alyssa, JUVENILE JUSTICE OFFICER.CONDENSER TUBE TENDER 17 g at 12/09/22 0821 simvastatin 10 mg tab(s) (ZOCOR) 10 mg ORAL AT BEDTIME Thomas Mathew MD 10 mg at 12/08/222019 tamsulosin 0.4 mg cap(s) (FLOMAX) 0.4 mg ORAL DAILY Thomas Mathew MD 0.4 mg at 12/09/22 08 traZODone 150 mg tab(s) (DESYREL) 150 mg ORAL AT BEDTIME Archual, Alyssa, JUVENILE JUSTICE OFFICER.CONDENSER TUBE TENDER 150 mg at 12/08/222019 valsartan 80 mg tab(s) (DIOVAN) 80 mg ORAL DAILY Archual, Alyssa, JUVENILE JUSTICE OFFICER.CONDENSER TUBE TENDER 80 mg at 12/09/22 08 ASSESSMENT AND [...] pain control, Pain management consulted, started Fentanyl RD MECHANICAL ENGINEER today due to continued uncontrolled pain, Robaxin and Tylenol scheduled, no further Toradol due to CKD 3. -Check postop lumbar XR today -Medicine consult for post-operative medical management -Discharge planning, anticipate discharge home in 1-2 more days. Plan of care discussed with Dr. Mathew via phone. Medication and Non-Pharmacologic VTE Prophylaxis/Anticoagulants 10/25/21 1215 vte pharmacologic prophylaxis contraindicated (fl,oh) (more content not included)... [facility] 12-08-2022 Note HNO ID: [id number] Author: Alyssa Tim APRN.OLGA Service: Neurosurgery Author [...] on POD #2 -Post-operative pain control, Dilaudid RD MECHANICAL ENGINEER discontinued. Continue Tylenol, Toradol IV, and Robaxin PRN. Start oxycodone every 3 hours PRN and Dilaudid IV PRN. -Check postop XR tomorrow. -Medicine consult for post-operative medical management -Discharge planning, anticipate discharge home in 1-2 more days. Plan of care discussed with Dr Hopper via phone. Medication and Non-Pharmacologic VTE Prophylaxis/Anticoagulants 10/25/21 1215 vte pharmacologic prophylaxis contraindicated (co,va) 10/25/21 1215 pneumatic compression stockings (co,va) 10/25/21 1215 activity - mobilize patient (co,va) VTE Prophylaxis: VTE prophylaxis appropriate SIGNATURE: Alyssa Tim APRN.CNP DATE: December 08, 2022 TIME: 1:50 PM [facility] 12-08-2022 Note HNO ID: [id number] Author: Note, Interface Service: ? Author Type: ? Type: Progress Notes Filed: 12/08/2022 3:59 AM Note Text: Epic Scheduled Downtime: 12/08/2022 1:00:00 AM to 12/08/2022 1:28:00 AM [facility] 12-07-2022 Note HNO ID: [id number] Author: Aaron Noriega AA Service: Anesthesiology Author Type: Escapement Maker Type: Anesthesia Procedure Notes Filed: 12/07/2022 8:04 [...] December 07, 2022 TIME: 8:03 AM CSN: [id number] [facility] 12-06-2022 Evaluation note Encounter Date Diagnosis [...] has adequate iron stores. 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 12/07/2022 documented as of this encounter (statuses as of 12/18/2022) [address]-2023 History of Past illness Narrative* Problem Noted Date Diagnosed Date Resolved Date Secondary hyperparathyroidism 11/21/2022 11/21/2022 11/21/2022 Corneal edema, unspecified 12/10/2013 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 12/07/2022 documented as of this encounter (statuses as of 12/21/2022) [address]-2023 History of Past illness Narrative* Problem Noted Date Diagnosed Date Resolved Date Secondary hyperparathyroidism 11/21/2022 11/21/2022 11/21/2022 Corneal edema, unspecified 12/10/2013 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 12/07/2022 documented as of this encounter (statuses as of 12/21/2022) [address]-2023 History of Past illness Narrative* Problem Noted Date Diagnosed Date Resolved Date Secondary hyperparathyroidism 11/21/2022 11/21/2022 11/21/2022 Corneal edema, unspecified 12/10/2013 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 12/07/2022 documented as of this encounter (statuses as of 01/24/2023) [address]-2023 History of Past illness Narrative* Problem Noted Date Diagnosed Date Resolved Date Secondary hyperparathyroidism 11/21/2022 11/21/2022 11/21/2022 Corneal edema, unspecified 12/10/2013 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 12/07/2022 documented as of this encounter (statuses as of 02/08/2023) [address]-2023 History of Past illness Narrative* Problem Noted Date Diagnosed Date Resolved Date Secondary hyperparathyroidism 11/21/2022 11/21/2022 11/21/2022 Corneal edema, unspecified 12/10/2013 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 12/07/2022 documented as of this encounter (statuses as of 02/09/2023) [facility] History of Past illness Narrative* Problem Noted Date Diagnosed Date Resolved Date Secondary hyperparathyroidism 11/21/2022 11/21/2022 11/21/2022 Corneal edema, unspecified 12/10/2013 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 12/07/2022 documented as of this encounter (statuses as of 04/09/2023) [facility] History of Past illness Narrative* Problem Noted Date Diagnosed Date Resolved Date Secondary hyperparathyroidism 11/21/2022 11/21/2022 11/21/2022 Corneal edema, unspecified 12/10/2013 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 12/07/2022 documented as of this encounter (statuses as of 04/18/2023) [facility] History of Past illness Narrative* Problem Noted Date Diagnosed Date Resolved Date Secondary hyperparathyroidism 11/21/2022 11/21/2022 11/21/2022 Corneal edema, unspecified 12/10/2013 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 12/07/2022 documented as of this encounter (statuses as of 05/13/2023) [facility] History of Past illness Narrative* Problem Noted Date Diagnosed Date Resolved Date Secondary hyperparathyroidism 11/21/2022 11/21/2022 11/21/2022 Corneal edema, unspecified 12/10/2013 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 Given both written and verbal instructions re : Skin prep, wound care, pain management and post op restrictions. Provided to patient: [facility] Surgery Guide, skin prep supplies, Spine Surgery Pre/post op education packet. Yes Reviewed with patient to report to the registration desk for surgery? Yes. Reviewed with the patient that a surgery product support representative will call the working day prior [...] lab work : To be completed at [facility]. Questions answered. Patient verbalizes understanding via teach back. Additional comments : Informed to call with any questions or concerns. Juan Pablo Nova RN [facility] History of Present illness Narrative* Thomas Mathew [...] TIME: 2:20 PM PAGER: documented in this encounter[facility]23 NoteHNO ID: [id number] Author: Sonya Wilhelm APRN.CONDENSER TUBE TENDER Service: ? Author Type: Nurse Practitioner Type: Progress Notes Filed: 10/16/2022 4:03 PM Note Text: Per Triage: Sukhdeep Simental is a 57 year old male that requests evaluation of lumbar spine. Per review, they have symptoms of LBP Hip pain Leg pain (R) Numbness, Tingling Toes Trouble lifting leg (R) Prev surgery yes L4-S1 fusion in [facility] CMT: Injection Muscle relaxants, Zanaflex Studies (Reports [...] schedule with first available lumbar revision surgeon. [facility]08-22-2023 History of Present illness Narrative* Sonya Wilhelm APRN.CONDENSER TUBE TENDER - 10/16/2022 3:51 PM EDT Per Triage: Sukhdeep Simental is a 57 year old male that requests evaluation of lumbar spine. Per review, they have symptoms of LBP Hip pain Leg pain (R) Numbness, Tingling Toes Trouble lifting leg (R) Prev surgery yes L4-S1 fusion in [facility] CMT: Injection Muscle relaxants, Zanaflex Studies (Reports [...] Simental Are you being referred by a [place] for Spine Health Provider or Pain Management Provider at [facility]? No If answer is YES please schedule [...] facility where the MRI/CT/myelogram was completed: [facility] Address: [facility] [place] [address] MRI/CT/myelogram viewable in Epic: No If not, please provide [phone] to fax in imaging reports for review. [...] injections and/or physical therapy was completed Injection [facility] Address: [address] [place] [address] Have you tried any other kinds of [...] of where the surgery was completed: 2019 [facility] Address: [address] [facility] [place] [address] Additional Comments [phone] (Home Phone) documented in this encounter[facility]23 NoteHNO ID: [id number] Author: Adonis Lopez Service: ? Author Type: ? Type: Progress Notes Filed: 10/16/2022 4:03 PM Note Text: Patient name: Sukhdeep Simental Are you being referred by a [place] for Spine Health Provider or Pain Management Provider at [facility]? No If answer is YES please schedule [...] facility where the MRI/CT/myelogram was completed: [facility] Address: [address] [place] [address] MRI/CT/myelogram viewable in Epic: No If not, please provide [phone] to fax in imaging reports for review. [...] injections and/or physical therapy was completed Injection [facility] Address: [address] [place] [address] Have you tried any other kinds of [...] of where the surgery was completed: 2019 [facility] Address: [address] [place] [id number] Additional Comments [phone] (Home Phone)[facility]04-27-2023 Evaluation note* Encounter Date Diagnosis Assessment [...] will continue to monitor without any medications. [employer] Other 01-23-2023 Hospital Discharge instructions Patient Education [...] include: ?Spinach. ?Rhubarb. ?Beets. ?Potato chips and malaysian fries. ?Nuts. If you regularly take a diuretic medicine, make sure to eat at least 1 2 fruits or vegetables high in potassium each day. These include: ?Avocado. ?Banana. ?Verdi, prune, carrot, or tomato juice. ?Baked potato. [...] Casseroles. Pizza. Lasagna. Frozen meals. Potato chips. Chilean fries. Summary You can reduce your risk [...] 06/08/2011 Document Revised: 06/03/2019 Document Reviewed: 01/22/2017 [employer] Patient Education 2020 [employer] Follow Up Care 03/15/2022 09:49:40 With:LIDIA JACOBS, Cecelia jJ, URL Address: [facility] [address] [place] [address]- When: Unknown [facility] 01-16-2023 NoteIndication: Renal mass. Comparison: 07/14/2021 [...] by: CITLALI GIRON Date: 2022-03-12 18:03[facility]10-21-2022 Evaluation note* Encounter Date Diagnosis Assessment Notes [...] be cultured for infection, gonorrhea, chlamydia, yeast. [employer] Other 08-31-2022 Evaluation note* Encounter Date Diagnosis [...] paraproteinemia due to the CKD and anemia. [employer] Other 04-01-2022 History of Present illness Narrative* [...] from the original note were not included. [employer] Supervisor Progress Note Date: 05/26/2021 Patient name: Sukhdeep [...] Ok for d/c from cardiology standpoint. [employer] [phone] * Octavio Mcclellan, - 05/25/2021 5:42 PM [...] Foreman RN - 05/25/2021 8:32 AM EDT [employer] Supervisor Documentation Note Admission Dx: S/P laparoscopic sleeve [...] on an annual basis Tona Foreman RN [employer] Supervisor * Sonya Ramírez, DO - 05/25/2021 6:45 [...] Day of Surgery/Procedure As a patient at [facility] you can expect quality medical and nursing care that is centered on your individual needs. Our goal is to make your surgical experience as comfortableas possible . Directions to the Surgery Center [facility] is located at [address] [place] [address]. Please pull into the Emergency parking lot and stop at the food service lead ojeda. We offer free food service lead service for all our surgery patients, if you choose not to have food service lead parking we have additional parking across the street.You will enter the facility under the blue canopy/walkway following the [facility] sign. Please stop at the marine insurance claim examiner desk where you will be checked in by the staff. If you have any questions please call [phone]. Transportation after your procedure. You will need a friend or family member to drive you home after your procedure. Your horse and wagon driver must be18 years of age or [...] You may shave your face or neck. [place] your teeth but do not swallow water. [...] or the day of surgery, please call [phone], or [phone] documented in this [facility] [employer] Phone: 1(140) 872-741903-31-2022 Hospital Discharge instructions* Discharge Instr - KAMARI* Jenny Lentz RN - 05/25/2021 5:44 PM EDT PHYSICIAN SIGNATURE: * Additional Instructions* Jenny Lentz, RN - 05/26/2021 Discharge Instructions for Bariatric Surgery You had a Laparoscopic Sleeve Gastrectomy (49713) surgery to treat obesity. Recovery from this [...] scheduled appointment, please call the office at [phone]. Call Your Doctor If Any of the [...] sent through Care Everywhere. * Enoxaparin (Lovenox) (Cuban) * metoprolol (oral/injection) (Cuban) * acetaminophen and oxycodone (Cuban) documented in this [facility] Phone: 1(282) 618-454403-09-2022 Hospital Discharge instructions* Instructions* Etelvina Ledbetter APRN - CONDENSER TUBE TENDER - 05/03/2021 Pre-operative Instructions Please arrive at [...] list you provided today, ACCORDING TO YOUR PHYSICIST NUCLEAR, PLEASE HOLD ELIQUIS 3 DAYS PRIOR TO [...] public transportation ALONE is not acceptable. -Your horse and wagon driver must be 18 years of age [...] Day of Surgery/Procedure As a patient at [facility] you can expect quality medical and nursing care that is centered on your individual needs. Our goal is to make your surgical experience as comfortableas possible . Directions to the Surgery Center [facility] is located at [address] [place] [address]. Please pull into the Emergency/Surgery Center parking lot and stop at the [employer] ojeda. We offer free food service lead service for all our surgery patients, if you choose not to have food service lead parking we have additional parking across the [...] pharmacy bottles in a zip lock bag. [place] your teeth but do not swallow water. [...] DAY OF your surgery, you may call [phone] documented in this [facility] Work Phone: evaluation + Plan note Future Appointments Appointment Date:07/16/2022 02:45:00 PM Scheduled Provider:Cecelia MURILLO MD Location:[facility] Appointment Type:URO Office Visit [facility] evaluation + Plan note Future Appointments Appointment Date:02/04/2023 09:15:00 AM Scheduled Provider:Cecelia MURILLO MD Location:[facility] Appointment Type:URO Office Visit General Surgery [place] Evaluation + Plan note Future Appointments Appointment Date:02/03/2024 10:30:00 AM Scheduled Provider:Cecelia MURILLO MD Location:[facility] Appointment Type:URO Office Visit Diagnostic Tests Pending * PSA Total 02/04/23 [facility] evaluation + Plan note Future Appointments Appointment Date:08/13/2025 10:45:00 AM Scheduled Provider:Cecelia MURILLO MD Location:[facility] Appointment Type:URO Office Visit Diagnostic Tests Pending * PSA Total 06/25/25 [facility] evalcpwprm note* Diagnosis Pre-op chest exam Pre-operative respiratory examination documented in this encounter [facility] Work Phone: evalmjrurg note* Diagnosis S/P laparoscopic sleeve gastrectomy- Primary documented in this encounter [facility] Phone: evaluation noteNo InformationNort [employer] Other evaluation noteNo assessment information available [facility] Work Phone: Evaluation note* Diagnosis Lumbar adjacent segment disease with spondylolisthesis- Primary Lumbar adjacent segment disease with spondylolisthesis documented [facility]* Diagnosis Lumbar adjacent segment disease with spondylolisthesis- Primary documented in this encounter [facility]* Diagnosis Lumbar adjacent segment disease with spondylolisthesis- Primary documented in this encounter [facility] note* Diagnosis Radiculopathy, lumbar region- Primary Thoracic or lumbosacral neuritis or radiculitis, unspecified documented in this encounter [facility]* Diagnosis Onset Date Resolution Status CKD (chronic kidney disease) stage 3, GFR 30-59 ml/min acute [id number] acute Hyperuricemia acute Microscopic hematuria acute Nephrolithiasis acute Secondary hyperparathyroidism acute Type 2 diabetes 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 acute [facility] Work Phone: evalunjjoo note* Diagnosis Spinal stenosis, lumbar region, with neurogenic claudication- Primary [facility] encounter [facility]* Diagnosis Spinal stenosis, lumbar region, with neurogenic claudication- Primary [facility]* Diagnosis Spinal stenosis, lumbar region, with neurogenic claudication- Primary [facility] Narrative - Reported* Type Description [...] GASTRIC SLEEVE 04/2021 Hospitalization History SEE ABOVE [employer] Other [facility] general Narrative - Reported* Type Description Date [...] REPLACEMENT 04/16 22 Hospitalization History SEE ABOVE [employer] Other Hospital course Narrative No data available for this section [facility] Hospital Discharge instructions No data available for this section General Surgery [place] InstructionsNot on filedocumented in this encounter [facility] filedocumented in this encounter [facility]Not on filedocumented in this encounter [facility] No data available for this section [facility] reason for referral (narrative)* Diagnostic Procedure Only (Routine) - Pending Review Specialty Diagnoses / Procedures Referred By Enoch luna Referred To Contact XR IMAGING Diagnoses Lumbar adjacent segment disease with spondylolisthesis Procedures XR LUMBAR LIMITED 2V AP/LAT RADEX SPINE LUMBOSACRAL 2/3 VIEWS Singh Morgan PA-C [address] [id number] Xr Imaging [place] [address] Referral ID Status Reason Start Date Expiration Date Visits Requested Visits Authorized [id number] Pending Review Auto-Generat ed Referral 3 01/19/2024 1 1 [facility] for referral (narrative)* Diagnostic Procedure Only (Routine) - Pending Review Specialty Diagnoses / Procedures Referred By Enoch luna Referred To Contact XR IMAGING Diagnoses Radiculopathy, lumbar region Procedures XR LUMBAR LIMITED 2V AP/LAT RADEX SPINE LUMBOSACRAL 2/[place] [address] [place] [address] [place] [address] Referral ID Status Reason Start Date Expiration Date Visits Requested Visits Authorized [id number] Pending Review Auto-Generat ed Referral 05/08/2023 06/06/2024 1 1 [facility] for visit Narrative* Auth/Cert Specialty Diagnoses / Procedures Referred By Contac t Referred To Contact Diagnoses Morbid obesity (HCC) Type II diabetes circulatory disorder causing erectile dysfunction (HCC) Hypertension MORBID OBESITY, TYPE II DIABETES, HYPERTENSION Procedures DC LAP, JUAN RESTRICT PROC, LONGITUDINAL GASTRECTOMY XI ROBOTIC LAPOROSCOPIC GASTRECTOMY SLEEVE, LIVER BIOPSY, EGD- GI SCHEDULED Octavio Mcclellan DO [address] [facility] [address] [place] [address] [employer] [address] [place] [address] Referral ID Status Reason Start Date Expiration Date Visits Re quested Visits Authorized [id number] 1 1 [employer] Phone: Advance Directives No Advanced Directives Records FoundDocuments on File Type Date Recorded Patient Clod Puller Expl anation Advance Directives and Living Will Power of Pharmacy Ancillary Advance Directive Response Recorded Date/ Time Advance Directives No September 16 2:32pm Documents on File Type Date Recorded Patient Clod Puller Expl anation ACP-Advance Directive ACP-Power of Pharmacy Ancillary Documents on File Type Date Recorded Patient Clod Puller Expl anation ACP-Advance Directive ACP-Power of Pharmacy Ancillary Latest Code Status on File Code Status [...] retention in legs Alexandro Muhammad MD [address] [place] [address] Maite John MD [address] [place] [address] Scheduling Instructions . Specialty Diagnoses / Procedures Referred By Contac t Referred To Contact [facility] Diagnoses Lumbar adjacent segment disease with spondylolisthesis Procedures CONSULT TO [facility]) OFFICE/OUTPATIENT [facility] 60-[place] [address] [address] [place] [id number] Referral ID Status Reason Start Date Expiration Date Visits Requested Visits Authorized [id number] Pending Review PCP Requested Referral 11/05/2022 11/05/2023 1 1 Specialty Diagnoses / Procedures Referred By Contac t Referred To Contact [facility] Diagnoses Lumbar adjacent segment disease with spondylolisthesis Procedures CONSULT TO PHYSICAL THERAPY PHYSICAL THERAPY EVALUATION HIGH COMPLEX 45 MINS Riddhi Goss, JUVENILE JUSTICE OFFICER.CONDENSER TUBE TENDER [address] [place] [address] [facility] [address] [place] [address] Referral ID Status Reason Start Date Expiration Date Visits Requested Visits Authorized [id number] Pending Review Auto-Generat ed Referral 3 02/07/2024 [...] has been treated in the past by deliverer food as well as his PCP. They contribute [...] file Gets together: Not on file Attends anabaptist service: Not on file Active member of [...] 01/08/2020 2:19 PM Patient: Sukhdeep Simental MR#: [id number] : 1965 Age: 54 y.o. 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 [...] []Chair,[]cane, []bracing Are you followed by a shear assembler? [] [x] Name: Are you followed by [...] kidney disease) stage 3, GFR 30-59 ml/min [id number] Hyperuricemia Microscopic hematuria Nephrolithiasis Secondary hyperparathyroidism Type 2 diabetes mellitus with diabetic chronic kidney disease Discharge Instructions * Attachments The following attachments cannot be sent through Care Everywhere. * Back Pain (Cuban) documented in this encounter Additional Source Comments (unrecognized sect ion and content) No Status Records FoundNo Status Records FoundNo Status Records FoundNo Status Records FoundNo Status Records FoundNo Status Records FoundNo Status Records FoundNo Status Records FoundNo Status Records FoundNo Status Records FoundNo Status Records FoundNo Status Records Found INFORMATION SOURCE (unrecogn ized section and content) DATE CREATED AUTHOR 04/18/2019 [facility] DATE CREATED AUTHOR AUTHOR'S ORGANIZ ATION 06/10/2019 [facility] DATE CREATED AUTHOR AUTHOR'S ORGANIZ ATION 07/21/2021 [facility] DATE CREATED AUTHOR AUTHOR'S ORGANIZ ATION 10/22/[address] [facility] DATE CREATED AUTHOR AUTHOR'S ORGANIZ ATION 01/23/2022 [facility] DATE CREATED AUTHOR AUTHOR'S ORGANIZ ATION 08/04/2022 [facility] DATE CREATED AUTHOR AUTHOR'S ORGANIZ ATION 12/12/2022 [facility] DATE CREATED AUTHOR AUTHOR'S ORGANIZ ATION 07/27/2023 [facility] DATE CREATED AUTHOR AUTHOR'S ORGANIZ ATION 02/16/2024 [facility] DATE CREATED AUTHOR AUTHOR'S ORGANIZ ATION 06/19/2024 [facility] DATE CREATED AUTHOR AUTHOR'S ORGANIZ ATION 06/30/2024 [facility] DATE CREATED AUTHOR AUTHOR'S ORGANIZ ATION 08/10/2024 [facility] Reason for Visit (unrecogniz ed section and content) Status Reason Specialty Diagnoses / Procedures Referred By Contact Referred To Contact Pending Review Diagnoses Hx of total knee arthroplasty, right Procedures XR BONE LENGTH STUDY Alexandro Muhammad MD [address] [place] [address] Reason Comments Pain Status Reason Specialty Diagnoses / Procedures Referred By Contact Referred To Contact Closed Cardiovascular Medicine Diagnoses Localized edema Procedures ECHOCARDIOGRAM DC ECHO HEART XTHORACIC,COMPLETE W DOPPLER Suzanne Pruett MD [address] [place] [address] Horace Buc Echocardiograph y [address] [place] [address] Reason Comments Back Pain Lower back pain s/p slip on ice Buttocks Pain Rt buttocks pain Reason Comments New Patient Lumbar spine Specialty Diagnoses / Procedures Referred By Contac t Referred To Contact Neurosurgery / NEUROSURGERY Diagnoses lumbar spine eHealth records requested Procedures REFERRAL TO [facility]ANCIAL COUNSELOR NEW SPINE SURGICAL TRIAGE Jason Miller [address] [place] [address] [place] [address] [place] [address] Referral ID Status Reason Start Date Expiration Date V isits Requested Visits Authorized [id number] Outside PCP 11/05/2022 01/04/2023 99 99 Reason [...] POST OP NEUS/NRES Self Xi Schrader PA-C [address] [place] [id number] Referral ID Status Reason Start Date Expiration Date Visits Re quested Visits Authorized [id number] Closed 12/20/2022 02/24/2023 1 1 Reason Comments Received Outside Medical Records promedi [facility] Reason Comments Follow Up Specialty Diagnoses / Procedures Referred By Contac t Referred To Contact Neurosurgery / NEUROSURGERY Diagnoses Follow-up exam Follow Up Procedures OFFICE/OUTPATIENT ESTABLISHED MOD MDM 30-39 MIN EST NI PATIENT Self Xi Schrader PATed [id number] [place] [address] Referral ID Status Reason Start Date Expiration Date Visits Re quested Visits Authorized [id number] Closed 02/07/2023 02/07/2023 1 1 Reason Comments PT Certification Specialty Diagnoses / Procedures Referred By Contac t Referred To Contact Neurosurgery / NEUROSURGERY Diagnoses Lumbar adjacent segment disease with spondylolisthesis discuss imaging and BWC requirements Procedures PHYS/QHP TELEPHONE EVALUATION 5-10 MIN [place]IDEO [place] [address] [place] [address] Referral ID Status Reason Start Date Expiration Date V isits Requested Visits Authorized [id number] Denied Patient Cleared - Admin/Chairm an/Director advise [...] November 07, 2023 End: November 07, 2023 Oil Pipeline Dispatcher Relationship Specialty Start Date End Date Blayne Isabel MD [address] [id number] PCP - General Family Medicine 04/11/19 [employer] Pipeline Dispatcher Relationship Specialty Start Date End Date Blayne Isabel MD [address] [id number] PCP - General Family Medicine 04/11/19 Oil Pipeline Dispatcher Relationship Specialty Start Date End Date Blayne Isabel MD [address] [id number] PCP - General Family Medicine 04/11/19 Oil Pipeline Dispatcher Relationship Specialty Start Date End Date Blayne Isabel MD [address] [id number] PCP - General Family Medicine 04/11/19 Team Status: Inactive Member Role Status Dates STEPH Sarkar Attending Provider Active Team Status: Inactive Member Role Status Dates PHYSICIAN NO FAMILY Primary Care Provider Active Gianni James Nelson , DO Attending Provider Active Team Status: Inactive Member Role Status Dates Estephanie Lowry CLAM SORTER-C Attending Provider Active PHYSICIAN NO FAMILY Primary Care Provider Active Oil Pipeline Dispatcher Relationship Specialty Start Date End Date Blayne Isabel MD PCP - General Family Medicine 11/06/13 Oil Pipeline Dispatcher Relationship Specialty Start Date End Date Blayne Isabel MD PCP - General Family Medicine 11/06/13 Oil Pipeline Dispatcher Relationship Specialty Start Date End Date Blayne Isabel MD PCP - General Family Medicine 11/06/13 Oil Pipeline Dispatcher Relationship Specialty Start Date End Date Blayne Isabel MD PCP - General Family Medicine 11/06/13 Oil Pipeline Dispatcher Relationship Specialty Start Date End Date Blayne Isabel MD PCP - General Family Medicine 11/06/13 Oil Pipeline Dispatcher Relationship Specialty Start Date End Date Blayne Isabel MD PCP - General Family Medicine 11/06/13 Oil Pipeline Dispatcher Relationship Specialty Start Date End Date Blayne Isabel MD PCP - General Family Medicine 11/06/13 Oil Pipeline Dispatcher Relationship Specialty Start Date End Date Blayne Isabel MD PCP - General Family Medicine 11/06/13 Oil Pipeline Dispatcher Relationship Specialty Start Date End Date Blayne Isabel MD PCP - General Family Medicine 11/06/13 Oil Pipeline Dispatcher Relationship Specialty Start Date End Date Blayne Isabel MD PCP - General Family Medicine 11/06/13 Oil Pipeline Dispatcher Relationship Specialty Start Date End Date Blayne Isabel MD PCP - General Family Medicine 11/06/13 Oil Pipeline Dispatcher Relationship Specialty Start Date End Date Blayne Isabel MD PCP - General Family Medicine 11/06/13 Oil Pipeline Dispatcher Relationship Specialty Start Date End Date Blayne Isabel MD PCP - General [facility] Medicine 10/08/18 Oil Pipeline Dispatcher Relationship Specialty Start Date End Date Blayne Isabel MD PCP - General [facility] Medicine 10/08/18 Oil Pipeline Dispatcher Relationship Specialty Start Date End Date Blayne Isabel MD [address] [place] [address] [facility] 10/08/18 Oil Pipeline Dispatcher Relationship Specialty Start Date End Date Blayne Isabel MD [address] [place] [address] PCP - General [facility] Medicine 10/08/18 Oil Pipeline Dispatcher Relationship Specialty Start Date End Date Blayne Isabel MD PCP - General [facility] Medicine 10/08/18 Oil Pipeline Dispatcher Relationship Specialty Start Date End Date Blayne [...] Discontinued 1529 (Due)2116 (Given - Provider: Giselle aPinting RN) 0838 (Not Given - Provider: Milagros [...] Otoole RCP)1949 (Given - Provider: Yamilka Doyle FOOD SERVICE TEAM MEMBER) 0729 (Not Given - Provider: Swapna De Anda FOOD SERVICE TEAM MEMBER - Reason: Patient/family refused - Comment: pt [...] BRETT) 1009 (Given - Provider: Jenny Lentz, RBETT)2100 (Due) scopolamine (TRANSDERM-SCOP) transdermal patch 1 patch [...] Muscle spasms 0845 (Given - Provider: Milagros eRich RN)1541 (Given - Provider: Milagros Reich RN) [...] to back table, 1000 ml. for suction lab engineer.) sodium chloride flush 0.9 % injection [...] or prosecute any alcohol or drug abuse patient.[facility] Center[facility] the event this information is protected by the Federal Confidentiality of Alcohol and Drug Abuse Patient Records regulations: The Federal rules restrict any use of the information to criminally investigate or prosecute any alcohol or drug abuse patient.[facility] Center[facility] the event this information is protected by the Federal Confidentiality of Alcohol and Drug Abuse Patient Records regulations: The Federal rules restrict any use of the information to criminally investigate or prosecute any alcohol or drug abuse patient.[facility] Center[facility] the event this information is protected by the Federal Confidentiality of Alcohol and Drug Abuse Patient Records regulations: The Federal rules restrict any use of the information to criminally investigate or prosecute any alcohol or drug abuse patient.[facility] CenterIn the event this information is protected by the Federal Confidentiality of Alcohol and Drug Abuse Patient Records regulations: The Federal rules restrict any use of the information to criminally investigate or prosecute any alcohol or drug abuse patient.[facility] CenterIn the event this information is protected by the Federal Confidentiality of Alcohol and Drug Abuse Patient Records regulations: The Federal rules restrict any use of the information to criminally investigate or prosecute any alcohol or drug abuse patient.[facility] CenterIn the event this information is protected by the Federal Confidentiality of Alcohol and Drug Abuse Patient Records regulations: The Federal rules restrict any use of the information to criminally investigate or prosecute any alcohol or drug abuse patient.[facility] CenterIn the event this information is protected by the Federal Confidentiality of Alcohol and Drug Abuse Patient Records regulations: The Federal rules restrict any use of the information to criminally investigate or prosecute any alcohol or drug abuse patient.[facility] CenterIn the event this information is protected by the Federal Confidentiality of Alcohol and Drug Abuse Patient Records regulations: The Federal rules restrict any use of the information to criminally investigate or prosecute any alcohol or drug abuse patient.[facility] CenterIn the event this information is protected by the Federal Confidentiality of Alcohol and Drug Abuse Patient Records regulations: The Federal rules restrict any use of the information to criminally investigate or prosecute any alcohol or drug abuse patient.[facility] CenterIn the event this information is protected by the Federal Confidentiality of Alcohol and Drug Abuse Patient Records regulations: The Federal rules restrict any use of the information to criminally investigate or prosecute any alcohol or drug abuse patient.[facility] CenterIn the event this information is protected by the Federal Confidentiality of Alcohol and Drug Abuse Patient Records regulations: The Federal rules restrict any use of the information to criminally investigate or prosecute any alcohol or drug abuse patient.[facility] CenterIn the event this information is protected by the Federal Confidentiality of Alcohol and Drug Abuse Patient Records regulations: The Federal rules restrict any use of the information to criminally investigate or prosecute any alcohol or drug abuse patient.[facility] CenterIn the event this information is protected by the Federal Confidentiality of Alcohol and Drug Abuse Patient Records regulations: The Federal rules restrict any use of the information to criminally investigate or prosecute any alcohol or drug abuse patient.[facility] CenterIn the event this information is protected by the Federal Confidentiality of Alcohol and Drug Abuse Patient Records regulations: The Federal rules restrict any use of the information to criminally investigate or prosecute any alcohol or drug abuse patient.[facility] CenterIn the event this information is protected by the Federal Confidentiality of Alcohol and Drug Abuse Patient Records regulations: The Federal rules restrict any use of the information to criminally investigate or prosecute any alcohol or drug abuse patient.[facility] CenterIn the event this information is protected by the Federal Confidentiality of Alcohol and Drug Abuse Patient Records regulations: The Federal rules restrict any use of the information to criminally investigate or prosecute any alcohol or drug abuse patient.[facility] CenterIn the event this information is protected by the Federal Confidentiality of Alcohol and Drug Abuse Patient Records regulations: The Federal rules restrict any use of the information to criminally investigate or prosecute any alcohol or drug abuse patient.[facility] CenterIn the event this information is protected by the Federal Confidentiality of Alcohol and Drug Abuse Patient Records regulations: The Federal rules restrict any use of the information to criminally investigate or prosecute any alcohol or drug abuse patient.[facility] FOR RECORDS PERTAINING TO PATIENTS WHO ARE [...] BE BASED ON THE PRIMARY CLINICAL RECORDS. [employer] [facility]. provides no warranty or guarantee of the accuracy or completeness of information in this document.
[2024-11-13] MEDS: HYDROMORPHONE HCL 0.5 MG/0.5 ML SYRINGE IVP ×2 (14:50→20:01)
--- OUTSIDE RECORDS SUMMARY | 2024-11-13 15:13 | XMS_ITS | CCD ---
Author Organization [facility] Care Team Providers Care Shells Inspector Name Role Phone Blayne Isabel Primary Care Provider SUZANNE ACEVEDO Attending Unavailable BLAYNE ISABEL Primary Care Unavailable ARSENIO BHATTI Referring Unavailable BLAYNE ISABEL Primary Care Unavailable ARSENIO BHATTI Referring Unavailable BLAYNE ISABEL Primary Care Unavailable ROSE SOTELO Attending Unavailable BLAYNE ISABEL Primary Care Unavailable BLAYNE ISABEL Consulting Unavailable Blayne Isabel Primary Care Provider [phone] Blayne Isabel Primary Care Provider [phone] Octavio Becker Attending Provider [phone] Blayne Isabel MD Primary Care Provider [phone] OCTAVIO MCCLELLAN Referring Unavailable BLAYNE ISABEL Primary [...] Attending Unavailable Blayne Isabel Primary Care Physician [phone] LIDIA ., DR RAI Consulting Unavailable MURILLO [...] DR CISNEROS Referring Unavailable HOY ., DR CISNREOS Consulting Unavailable HOY ., DR CISNEROS Primary [...] Unavailable Blayne Isabel MD Primary Care Provider [phone] [facility] THOMAS Attending Unavailable QUINCY THOMAS Admitting [...] Unavailable Blayne Isabel MD Primary Care Provider [phone] PAYTON HELM Referring Unavailable PAYTON HELM Attending Unavailable PAYTON HELM Attending Unavailable Cecelia MURILLO Attending Unavailable MURILLOCecelia R Attending Unavailable MURILLO, Cecelia R Attending Unavailable MURILLO, Cecelia R Attending Unavailable Unavailable Unavailable Unavailable Allergies Allergy Classification Reported Allergen(s) Allergy Type Date of Onset Reaction(s) Facility (16 sources) Povidone-Iodine; Translations: [povidone iodine topical] Drug Allergy 9 [facility] (11 sources) Povidone-Iodine; Translations: [povidone-iodine] Drug Allergy 9 [facility] (9 sources) soap; Translations: [soap] Allergy to substance 9 [facility] (14 sources) Chlorhexidine; Translations: [CHLORHEXIDINE] Drug Allergy 1 [facility] (14 sources) Iodine; Translations: [IODINE] Drug Allergy 9 [facility] Work Phone: (15 sources) Loratadine; Translations: [loratadine] Drug Allergy 2 [facility] (1 source) Chlorhexidine Drug Allergy [facility] (1 source) Povidone-Iodine; Translations: [Betadine] Drug Allergy [facility] Repository Medications Current Medications Medication Drug Class(es) [...] carlos th every 4 hours as needed. [id number] 200 actuat albuterol 0.09 mg/actuat metered dose [...] Start: 01-05-2021 take 1 capsule by [facility] every week vitamin D (ERGOCALCIFEROL) 1.25 MG (42895 UT) CAPS capsule Indications: Vitamin D deficiency [...] on above: Take 1 capsule by [facility] twice daily. 2 ml ondansetron 2 mg/ml [...] Comment on above: Take 1 tablet by [facility] every 3 hours [...] 2023 12:00am take 1 capsule by [facility] once daily in the morning [...] number: 1 take 2 tablets by [facility] in the morning pioglitazone (ACTOS) [...] on above: Take 1 capsule by [facility] once daily. temazepam 15 mg [...] Start: 08-21-2018 take 2 tablets by [facility] once daily tiZANidine (ZANAFLEX) 4 mg tablet [...] on above: Use 1 Drop in the [facility] once daily. 72 hr scopolamine [...] on above: [facility]. 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 Normal [facility] Office/Clinic Noteon 08-07-2024 Urology Office/Clinic Note Urology Office/Clinic Note Chief Complaint 18 month f/u with SÁNCHEZ and KUB HPI Staff 58 year old male patient here for follow up with KUB/SÁNCHEZ. KUB/SÁNCHEZ done 07/16/24 @ [facility]. Previous dx: renal mass, kidney stone, [...] Seen in consult on 06/29/21 at [facility]. 11/14/21 - BUN 19.0. Crea 1.62. [...] Information LIDIA JACOBS, Cecelia Jj, URL [address] [place] [address]- Additional Instructions: 1 year w/ KUB and [...] (more content not included)... Normal [facility] Comment on above: Result Comment: Elec tronically Signed By: Cecelia MURILLO MD\.br\Date and Time Signed: 08/07/24 12:00 EDT\.br\Electronically Co-Signed By: Jacqueline Calero\.br\Date and Time Co-Signed: 08/07/24 11:53 EDT\.br\Electronically Co-Signed By: Jacqueline Calero\.br\Date and Time Co-Signed: 08/07/24 11:56 EDT\.br\Electronically Co-Signed By: Jacqueline Calero\.br\Date and Time Co-Signed: 08/07/24 11:57 EDT [facility] Patient Letter [facility] June 22, 2024 [place] [address] : 1965 Dear Mr. Sukhdeep Simental, You [...] any future cancellations. Sincerely, [place] [address] ext.3 [facility] Follow-Upon 06-17-2024 Follow-Up [id number] Sukhdeep Simental F 1965 M Date Provider Department Center 06/17/2024 PAYTON GRIFFITH MP ORTHO MPORTHO Family History Problem Relation Age of Onset Dementia Mother Esophageal cancer Father Alcohol abuse Father Family Status - Relation Status Age at Mother Alive Father Level of Service:84737 DC OFFICE/OUTPATIENT ESTABLISHED SF MDM 10 MIN [facility] 36on 05-18-2024 36 Will need to see the patient as soon as possible repeat x-rays and blood test to further evaluate as he has had previous infections and has high risk for recurrent infections and 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 PT WILL COME IN TODAY [facility] BASIC METABOLIC PANELon 03-2 Anion gap [Moles/Vol] 12 mmol/L Normal 7-20 [facility] Comment on above: Performed By: #### L [id number] #### [facility] ([employer]) [address] [place] [address] Calcium [Mass/Vol] 9.9 mg/dL Normal 8.6-10.3 [facility] Comment on above: Performed By: #### L [id number] #### [facility] ([employer]) [address] [place] [address] Chloride [Moles/Vol] 105 mmol/L Normal 98-107 [facility] Comment on above: Performed By: #### L [id number] #### [facility] ([facility]) [address] [place] [address] CO2 [Moles/Vol] 27 mmol/L Normal 21-31 [facility] Comment on above: Performed By: #### L [id number] #### [facility] ([facility]) [address] [place] [address] Creatinine [Mass/Vol] 1.42 mg/dL High 0.70-1.30 [facility] Comment on above: Performed By: #### L [id number] #### [facility] ([facility]) [address] [place] [address] GLOMERULAR FILTRATION RATE ML/MIN/1.73 SQ M.PREDICTED 56.6 mL/min/1.73m*2 Low >60.0 [facility] Comment on above: Result Comment: The [facility]???s estimated glomerular filtration rate (eGFR) will no [...] Performed By: #### L [id number] #### [facility] ([facility]) [address] [place] [address] Glucose [Mass/Vol] 102 mg/dL High 70-100 [facility] Comment on above: Performed By: #### L [id number] #### [facility] ([facility]) [address] [place] [address] Potassium [Moles/Vol] 4.4 mmol/L Normal 3.5-5.1 [facility] Comment on above: Performed By: #### L [id number] #### [facility] ([facility]) [address] [address] Sodium [Moles/Vol] 140 mmol/L Normal 136-145 [facility] Comment on above: Performed By: #### L [id number] #### [facility] ([facility]) [address] [place] [address] Urea nitrogen [Mass/Vol] 23 mg/dL Normal 7-25 [facility] Comment on above: Performed By: #### L [id number] #### [facility] ([facility]) [address] [facility] [place] [address] UREA NITROGEN/CREATININE (MASS RATIO) IN SER/PLAS 16.2 Normal [facility] Comment on above: Performed By: #### L [id number] #### [facility] ([facility]) [address] [place] [address] C-REACTIVE PROTEINon 025 C REACTIVE PROTEIN (MG/L) IN SER/PLAS <5.4 Normal <=5.0 [facility] Comment on above: Result Comment: Test ing performed using a new methodology, turbidimetry. Normal ranges have been updated. Old normal range was <8 mg/L. Performed By: #### L [id number] #### [facility] ([facility]) [address] [place] [address] CBC WITH AUTO DIFFERENTIALon 05-18-2024 Basophils (Bld) [#/Vol] 0.06 10*3/uL Normal 0.00-0.20 [facility] Comment on above: Performed By: #### L [id number] #### [facility] ([facility]) [address] [place] [address] Basophils/100 WBC (Bld) 0.7 % Normal 0.0-1.0 [facility] Comment on above: Performed By: #### L [id number] #### [facility] ([facility]) [address] [place] [address] Eosinophils (Bld) [#/Vol] 0.15 10*3/uL Normal 0.00-0.50 [facility] Comment on above: Performed By: #### L [id number] #### [facility] ([facility]) [address] [place] [address] Eosinophils/100 WBC (Bld) 1.8 % Normal 0.0-6.0 [facility] Comment on above: Performed By: #### L [id number] #### [facility] ([facility]) [address] [place] [address] Erythrocyte distribution width (RBC) [Ratio] 11.9 % Normal 11.5-15.0 [facility] Comment on above: Performed By: #### L [id number] #### [facility] ([facility]) [address] [place] [address] ERYTHROCYTE MEAN CORPUSCULAR HEMOGLOBIN CONCENTRATION (G/DL) BY AUTOMATED 34.5 g/dL Normal 32.0-35.0 [facility] Comment on above: Performed By: #### L [id number] #### [facility] ([facility]) [address] [place] [address] Hematocrit (Bld) [Volume fraction] 47.8 % Normal 39.0-50.0 [facility] Comment on above: Performed By: #### L [id number] #### [facility] ([facility]) [address] [place] [address] Hemoglobin (Bld) [Mass/Vol] 16.5 g/dL Normal 13.0-17.0 [facility] Comment on above: Performed By: #### L [id number] #### [facility] ([facility]) [address] [place] [address] Immature granulocytes (Bld) [#/Vol] 0.03 10*3/uL Normal 0.00-0.20 [facility] Comment on above: Performed By: #### L [id number] #### [facility] (BEAK[employer]) [address] [place] [address] Immature granulocytes/100 WBC (Bld) 0.4 % Normal 0.0-1.0 [facility] Comment on above: Performed By: #### L [id number] #### [facility] ([facility]) [address] [place] [address] Lymphocytes (Bld) [#/Vol] 1.80 10*3/uL Normal 1.20-4.00 [facility] Comment on above: Performed By: #### L [id number] #### [facility] ([facility]) [address] [place] [address] Lymphocytes/100 WBC (Bld) 21.8 % Normal 20.0-45.0 [facility] Comment on above: Performed By: #### L [id number] #### [facility] ([facility]) [address] [place] [address] MCH (RBC) [Entitic mass] 31.5 pg Normal 27.0-33.0 [facility] Comment on above: Performed By: #### L [id number] #### [facility] ([facility]) [address] [place] [address] MCV (RBC) [Entitic vol] 91.4 fL Normal 82.0-98.0 [facility] Comment on above: Performed By: #### L [id number] #### [facility] ([facility]) [address] [place] [address] Monocytes (Bld) [#/Vol] 0.66 10*3/uL Normal 0.10-1.00 [facility] Comment on above: Performed By: #### L [id number] #### [facility] ([facility]) [address] [address] Monocytes/100 WBC (Bld) 8.0 % Normal 5.0-12.0 [facility] Comment on above: Performed By: #### L [id number] #### [facility] ([facility]) [address] [address] Neutrophils (Bld) [#/Vol] 5.56 10*3/uL Normal 1.60-7.60 [facility] Comment on above: Performed By: #### L [id number] #### [facility] ([facility]) [address] [place] [address] Neutrophils/100 WBC (Bld) 67.3 % Normal 40.0-72.0 [facility] Comment on above: Performed By: #### L [id number] #### [facility] ([facility]) [address] [place] [address] NRBC (PER 100 WBCS) BY AUTOMATED COUNT 0.0 % Normal 0 [facility] Comment on above: Performed By: #### L [id number] #### [facility] ([facility]) [address] [place] [address] PLATELETS (10*3/UL) IN BLOOD AUTOMATED COUNT 247 10*3/uL Normal 150-400 [facility] Comment on above: Performed By: #### L [id number] #### [facility] ([facility]) [address] [place] [address] RBC (Bld) [#/Vol] 5.23 10*6/uL Normal 4.20-5.70 [facility] Comment on above: Performed By: #### L [id number] #### [facility] ([facility]) [address] [place] [address] WBC (Bld) [#/Vol] 8.26 10*3/uL Normal 4.00-10.60 [facility] Comment on above: Performed By: #### L [id number] #### [facility] ([facility]) [address] [place] [address] Follow-Upon 05-18-2024 Follow-Up [id number] Sukhdeep Simental 1965 M Date Provider Department Center 05/18/2024 PAYTON GRIFFITH MP ORTHO MPOKATHIA Family History Problem Relation Age of Onset Dementia Mother Esophageal cancer Father Alcohol abuse Father Family Status - Relation Status Age at Mother Alive Father Level of Service:14934 DC OFFICE/OUTPATIENT ESTABLISHED MOD MDM 30 MIN () Reason for Visit and Comments: Pain [136] - Swelling starts 2 months ago, started swimming about a month ago and it only made his knee worse Edema [[id number]] - Swelling starts 2 months ago, started swimming about a month ago and it only made his knee worse Normal [facility] Labon 05-18-2024 Lab [id number] Sukhdeep Simental 1965 M Date Provider Department Center 05/18/2024 2244-[facility] MP LAB RESOURCE MP DRAW Medical Pavi Family History Problem Relation Age of Onset Dementia Mother Esophageal cancer Father Alcohol abuse Father Family Status - Relation Status Age at Mother Alive Father Normal [facility] SEDIMENTATION RATEon 025 SEDIMENTATION RATE, ERYTHROCYTE 5 mm/hr Normal <20 [facility] Comment on above: Performed By: #### L [id number] #### [facility] (BEAKER) [address] [place] [address] 36on 05-15-2024 36 Patient feels like h is infection is back. Right knee swelling and pain but no fever. He was seen by Dr. Isabel and he put him on oral antibiotics and wanted Dr. Helm know in case he wants him to come in and be exam. Normal [facility] Erythrocyte distribution wid th Auto (RBC) [Ratio]on 10-29-2023 Erythrocyte distribution width (RBC) [Ratio] 11.5 % 11.0-15.0 [facility] Estimated glomerular filtrat ion rate (GFR) non- Americanon 10-29-2023 GFR/1.73 sq M.predicted among non-blacks MDRD (S/P/Bld) [Vol rate/Area] 51 mL/min/{1.73_m2} Low >=60 [facility] Hematocrit Auto (Bld) [Volum e fraction]on 10-29-2023 Hematocrit (Bld) [Volume fraction] 47.7 % 42.0-54.0 [facility] Hemoglobin [Mass/volume] in Bloodon 10-29-2023 Hemoglobin (Bld) [Mass/Vol] 16.8 g/dL 14.0-18.0 [facility] Laboratory - Chemistry and C hemistry - challengeon 10-29-2023 Albumin [Mass/Vol] 3.7 g/dL 3.4-5.0 [facility] Calcium [Mass/Vol] 9.0 mg/dL 8.5-10.1 [facility] Chloride [Moles/Vol] 103 mmol/L 98-107 [facility] CO2 [Moles/Vol] 26.8 mmol/L 21.0-32.0 [facility] Creatinine [Mass/Vol] 1.41 mg/dL High 0.70-1.30 [facility] GFR/1.73 sq M.predicted MDRD (S/P/Bld) [Vol rate/Area] mL/min/{1.73_m2} >=60 [facility] Glucose [Mass/Vol] 167 mg/dL High 74-106 [facility] Magnesium [Mass/Vol] 1.9 mg/dL 1.8-2.4 [facility] Potassium [Moles/Vol] 3.9 mmol/L 3.5-5.1 [facility] Sodium [Moles/Vol] 141 mmol/L 136-145 [facility] Urate [Mass/Vol] 7.9 mg/dL High 3.5-7.2 [facility] Urea nitrogen [Mass/Vol] 26.0 mg/dL High 7.0-18.0 [facility] Urea nitrogen/Creatinine [Mass ratio] 18.4 mg/mg [facility] Bilirubin Ql (U) Negative NEGATIVE [facility] Glucose (U) [Mass/Vol] Negative NEGATIVE [facility] Ketones Ql (U) Negative NEGATIVE [facility] pH (U) 6.0 [pH] 5.0-9.0 [facility] Specific gravity (U) [Rel density] 1.015 1.005-1.025 [facility] Urobilinogen Qn (U) 0.2 {Dahiana'U}/dL 0.2-1.0 [facility] Laboratory - Specimen inform ationon 10-29-2023 Appearance (U) CLEAR CLEAR [facility] Color (U) LT. YELLOW YELLOW [facility] Laboratory - Urinalysison Hyaline casts LM Ql (Urine sed) RARE [facility] Leukocyte esterase Test strip Ql (U) Negative NEGATIVE [facility] Mucus Ql (Urine sed) NONE SEEN NONE SEEN [facility] Nitrite Ql (U) Negative NEGATIVE [facility] Protein Ql (U) Negative NEG/TRACE [facility] Leukocytes [#/volume] correc romaine for nucleated erythrocytes in Blood by Automated counon 10-29-2023 WBC corrected for nucl RBC Auto (Bld) [#/Vol] 6.9 10 3/uL 4.0-11.0 [facility] MCH Auto (RBC) [Entitic mass ]on 10-29-2023 MCH (RBC) [Entitic mass] 32.2 pg 25.9-34.0 [facility] MCHC Auto (RBC) [Mass/Vol]on 10-29-2023 MCHC (RBC) [Mass/Vol] 35.2 g/dL 29.9-35.2 [facility] MCV Auto (RBC) [Entitic vol] on 10-29-2023 MCV (RBC) [Entitic vol] 91.6 fL 80.0-94.0 [facility] No Panel Informationon 10-28 25-Hydroxy Vitamin D Total 40.8 ng/mL [facility] Comment on above: <20 ng/mL Vit D defi cient20-<30 ng/mL Vit D rnxeraecagjf15-280 ng/mL Vit D sufficient>100 ng/mL Potential Toxicity Parathyroid Hormone (Intact) 91 pg/mL Abnormal 15-65 [facility] Comment on above: Performed at: - [employer] [address] [id number] Director: Logan Martinez PhD, Phone: [phone] Phosphorus Level 2.3 mg/dL Low 2.6-4.7 [facility] Urine Bacteria NONE SEEN #/HPF NONE SEEN [facility] Urine Occult Blood Negative NEGATIVE [facility] Urine Other Casts SEEN #/LPF Abnormal NONE SEEN [facility] Urine Random Creatinine 15.18 mg/dL Low 20.00-300.00 [facility] Urine Random Total Protein <6.0 mg/dL <=11.9 [facility] Urine RBC NONE SEEN #/HPF 0-2 [facility] Urine Squamous Epithelial Cells FEW #/LPF Abnormal NONE/RARE [facility] Urine WBC NONE SEEN #/HPF NONE SEEN [facility] Platelet mean volume Auto (B ld) [Entitic vol]on 10-29-2023 Platelet mean volume (Bld) [Entitic vol] 8.9 fL Low 9.5-13.5 [facility] Platelets Auto (Bld) [#/Vol] on 10-29-2023 Platelets (Bld) [#/Vol] 236 10 3/uL 150-450 [facility] RBC Auto (Bld) [#/Vol]on RBC (Bld) [#/Vol] 5.21 10 6/uL 4.70-6.10 [facility] Serum or plasma anion gap de terminationon 10-29-2023 Anion gap [Moles/Vol] 15.1 mmol/L [facility] CNPNon 10-07-2023 CNPN Telephone (NEADFV) SUKHDEEP SIMENTAL ([id number]) 1965 M Date Time Provider Department 10/07/23 [facility] During your visit today, we recorded the [...] Encounter Status:Closed by ARIANNA MUHAMMAD on [facility]/25/[facility] CNPN Telephone (ValueFirst MessagingFV) SUKHDEEP SIMENTAL ([id number]) 1965 M Date Time Provider Department 10/04/23 THOMAS MATHEW [facility] During your visit today, we [...] Status:Closed by JUAN PABLO NOVA on 10/04/23 [facility] SUKHDEEP ISMENTAL ([id number]) 1965 M Date Time Provider Department 07/30/23 [facility] During your visit today, we recorded the following information about you: Arianna Little 07/30/2023 11:51 AM Signed Pt phoned regarding upcoming visit 10/06 [place] appt. Pt unable to manage virtual visit asking for telephone visit. Pt asking how far in advance to do X-Ray. Pt will have X-Ray done locally at [facility]. Please call and advise Pt phone # [phone] Ekaterina Rondon 07/30/2023 1:07 PM Signed Have sent XR Lumbar order to [facility] fax # [phone] as requested from patient. Riddhi Goss APRN.[facility] 07/30/2023 3:25 PM Signed Called [...] Encounter Status:Closed by RIDDHI GOSS on 07/30/23 [facility]2023 CNPN Telephone (NIQ) SUKHDEEP SIMENTAL ([id number]) 1965 M Date Time Provider Department 07/23/23 THOMAS MATHEW During your visit today, we recorded the following information about you: Brenda Alex 07/23/2023 9:38 AM Signed Received request from [employer] needing more info, in [employer] for review. Juan Pablo Nova RN 07/23/2023 [...] Status:Closed by JUAN PABLO NOVA on 07/26/23 [facility] 04-16-2023 CNPN Telephone (NIQ) SUKHDEEP SIMENTAL ([id number]) 1965 M Date Time Provider Department 04/16/23 TH[facility]AS MATHEW [facility] During your visit today, we recorded the following information about you: Moriah Ferguson 04/16/2023 1:27 PM Signed Received imaging disc by mail from [facility]. Disc contains CT Lumbar spine done [...] >= 40 [E66.01] 12/08/2022 Encounter Status:Closed by MORAIH FERGUSON on 06/06/23 [facility] [place] 04-10-2023 HARIKA Telephone (NIQ) SUKHDEEP SIMENTAL ([id number]) 1965 M Date Time Provider Department 04/10/23 [...] Status:Closed by JUAN PABLO NOVA on 04/18/23 [facility] [place] 04-09-2023 CNPN Telephone (NIQ) SUKHDEEP SIMENTAL ([id number]) 1965 M Date Time Provider Department 04/09/23 THOMAS MATHEW During your visit today, we recorded the following information about you: Brenda Alex 04/09/2023 10:[address] Lumbar Spine Report from [facility], in epic to review. Brittany Rubio [...] Encounter Status:Closed by ROBSON LAZO on 04/09/23 [facility] 02-11-2023 [facility] Telephone (NIQ) SUKHDEEP SIMENTAL ([id number]) 1965 M Date Time Provider Department 02/11/23 THOMAS MATHEW During your visit today, we recorded the following information about you: Moriah Ferguson 02/11/2023 1:36 PM Signed Received fax from [employer] requesting office notes, C-9, and [employer] 14. See fax scanned in patient's chart. Juan Pablo Nova RN 02/13/2023 3:14 PM Signed Information faxed to number requested. Faxed verification received. MariamVincent jiménezbrigido Rojo 03/06/2023 3:20 PM Signed Received updated notes from [facility] dated 03/05/23. Scanned into [place]. Allergies As of Date: 02/11/2023 (No Known Allergies) Date Reviewed: 02/07/2023 Reviewed by: Brittany aRtliff - Fully Assessed Reason for Visit: [facility] (Worker's Comp) [4136] Prescriptions as of 03/07/2023 [...] Status:Closed by JUAN PABLO NOVA on 02/13/23 [facility] [place] 12-21-2022 OLGAN Telephone (NIQ) SUKHDEEP SIMENTAL ([id number]) 1965 M Date Time Provider Department 12/21/22 THOMAS MATHEW During your visit today, we recorded the following information about you: Moriah Ferguson 12/21/2022 9:29 AM Signed Patient called with complaints of [facility] not allowing him to hand picker the pain medication that was sent [...] Encounter Status:Closed by XI SCHRADER on 12/21/22 [facility] 12-18-2022 CNPN Telephone (PODCCP) SUKHDEEP SIMENTAL ([id number]) 1965 M Date Time Provider Department 12/18/22 BLAYNE ISABEL PODCCP During your visit today, we recorded the following information about you: Amaury Carreon 12/18/2022 1:52 PM Signed PATIENT INFORMATION Record ID: [id number] Patient Name: [facility]: [facility] [place]: [facility] [place] Attending: Thomas Mathew [facility]: [facility] INSTRUCTIONS SN to remind patient of next upcoming appointment date, time, location SN TRANSFER TO [facility] SURVEY INFORMATION Medical/Nurse Defense Analyst: Amaury Calderón 1. Your discharge instructions are [...] Reason for Visit: Follow Up Phone Call [2141] Cmt: All Clear Prescriptions as of 12/18/2022 [...] Encounter Status:Closed by AMAURY CARREON [facility] OLGA Telephone (NIQ) SUKHDEEP SIMENTAL ([id number]) 1965 M Date Time Provider Department 12/14/22 [...] via voice mail, as requested. Scanned into [place]. Allergies As of Date: 12/14/2022 (No Known [...] Status:Closed by ABBY HERNANDEZ on 12/17/22 Normal [facility] Basic metabolic 2000 panelon 12-11-2022 Anion gap [Moles/Vol] 8 mmol/L Low 9-18 [facility] Comment on above: Order Comment: Speci men Type: BLOOD SPECIMEN Ordering Facility: [facility] Address: [address] [place] [address] Performed By: #### 2 4321-2 #### [facility] CLIA [id number] [address] [place] [address] [place] Calcium [Mass/Vol] 8.7 mg/dL Normal 8.5-10.2 [facility] Comment on above: Order Comment: Speci men Type: BLOOD SPECIMEN Ordering Facility: [facility] Address: [address] [place] [address] Performed By: #### 2 4321-2 #### [facility] CLIA [id number] [address] [place] [address] [place] Chloride [Moles/Vol] 106 mmol/L High 97-105 [facility] Comment on above: Order Comment: Speci men Type: BLOOD SPECIMEN Ordering Facility: [facility] Address: [address] [place] [address] Performed By: #### 2 4321-2 #### [facility] CLIA [id number] [address] [place] [address] [place] CO2 [Moles/Vol] 29 mmol/L Normal 22-30 [facility] Comment on above: Order Comment: Speci men Type: BLOOD SPECIMEN Ordering Facility: [facility] Address: [address] [place] [address] Performed By: #### 2 4321-2 #### [facility] CLIA [id number] [address] [place] [address] [place] Creatinine [Mass/Vol] 1.17 mg/dL Normal 0.73-1.22 [facility] Comment on above: Order Comment: Speci men Type: BLOOD SPECIMEN Ordering Facility: [facility] Address: [address] [place] [address] Performed By: #### 2 4321-2 #### [facility] CLIA [id number] [address] [place] [address] [place] Creatinine and Glomerular filtration rate.predicted panel (S/P/Bld) 72 mL/min/1.73m??? Normal >=60 [facility] Comment on above: Order Comment: Shahrzad dumont Type: BLOOD SPECIMEN Ordering Facility: [facility] Address: [address] [place] [address] Result Comment: Leah mated Glomerular Filtration Rate [...] GFR. Performed By: #### 2 4321-2 #### [facility] CLIA [id number] [address] [place] [address] [place] Glucose [Mass/Vol] 98 mg/dL Normal 74-99 [facility] Comment on above: Order Comment: Shahrzad dumont Type: BLOOD SPECIMEN Ordering Facility: [facility] Address: [address] [place] [address] Result Comment: The [place] Diabetes [employer] (ADA) provides guidance for cutoff [...] Standards of Medical Care in Diabetes 2016, [place] [employer]. Diabetes Care. 2016.39(Suppl 1). Performed By: #### 2 4321-2 #### [facility] CLIA [id number] [address] [place], [place] [address] [place] Potassium [Moles/Vol] 4.8 mmol/L Normal 3.7-5.1 [facility] Comment on above: Order Comment: Speci men Type: BLOOD SPECIMEN Ordering Facility: [facility] Address: [address] [place] [address] Performed By: #### 2 4321-2 #### [facility] CLIA [id number] [address] [place], [place] [address] [facility] Sodium [Moles/Vol] 143 mmol/L Normal 136-144 [facility] Comment on above: Order Comment: Speci men Type: BLOOD SPECIMEN Ordering Facility: [facility] Address: [address] [place] [address] Performed By: #### 2 4321-2 #### [facility] CLIA [id number] [address] [place], [place] [address] [facility] Urea nitrogen [Mass/Vol] 13 mg/dL Normal 9-24 [facility] Comment on above: Order Comment: Speci men Type: BLOOD SPECIMEN Ordering Facility: [facility] Address: [address] [place] [address] Performed By: #### 2 4321-2 #### [facility] CLIA [id number] [address] [place], [place] [address] [facility] CASE MANAGEMon 12-11-2022 CASE MANAGEM HNO ID: [id number] Author: Gloria Toro RN Service: ? Author Type: Registered Nurse Type: Care Mgt Progress Note Filed: 12/11/2022 3:26 PM Note Text: CARE MANAGEMENT PROGRESS NOTE SERVICE DATE: 12/11/2022 SERVICE TIME: 3:26 pm LOS: 4 days No further skilled PT / OT needed at ID. SIGNATURE: Gloria Toro RN PATIENT NAME: Sukhdeep Simental DATE: December 11, 2022 TIME: 3:25 PM PAGER/CONTACT #: [phone] Normal [facility] CBC panel Auto (Bld)on 12-11 Erythrocyte distribution width (RBC) [Ratio] 12.5 % Normal 11.5-15.0 [facility] Comment on above: Order Comment: Speci men Type: BLOOD SPECIMEN Ordering Facility: [facility] Address: [address] [place] [address] Performed By: #### 5 8410-2 #### [facility] CLIA [id number] [address] [place] [address] [place] Hematocrit (Bld) [Volume fraction] 34.6 % Low 39.0-51.0 [facility] Comment on above: Order Comment: Speci men Type: BLOOD SPECIMEN Ordering Facility: [facility] Address: [address] [place] [address] Performed By: #### 5 8410-2 #### [facility] IA [id number] [address] [place] [address] [place] Hemoglobin (Bld) [Mass/Vol] 11.7 g/dL Low 13.0-17.0 [facility] Comment on above: Order Comment: Speci men Type: BLOOD SPECIMEN Ordering Facility: [facility] Address: [address] [place] [address] Performed By: #### 5 8410-2 #### [facility] IA [id number] [address] [place] [address] [place] MCH (RBC) [Entitic mass] 32.0 pg Normal 26.0-34.0 [facility] Comment on above: Order Comment: Speci men Type: BLOOD SPECIMEN Ordering Facility: [facility] Address: [address] [place] [address] Performed By: #### 5 8410-2 #### [facility] [place] [id number] [address] [place] [address] [place] MCHC (RBC) [Mass/Vol] 33.8 g/dL Normal 30.5-36.0 [facility] Comment on above: Order Comment: Speci men Type: BLOOD SPECIMEN Ordering Facility: [facility] Address: [address] [place] [address] Performed By: #### 5 8410-2 #### [facility] IA [id number] [address] [place] [address] [place] MCV (RBC) [Entitic vol] 94.5 fL Normal 80.0-100.0 [facility] Comment on above: Order Comment: Speci men Type: BLOOD SPECIMEN Ordering Facility: [facility] Address: [address] [place] [address] Performed By: #### 5 8410-2 #### [facility] CLIA [id number] [address] [place], [place] [address] [place] Nucleated RBC (Bld) [#/Vol] 10*3/uL Normal <0.01 [facility] Comment on above: Order Comment: Speci men Type: BLOOD SPECIMEN Ordering Facility: [facility] Address: [address] [place] [address] Performed By: #### 5 8410-2 #### [facility] CLIA [id number] [address] [place] [address] [place] Platelet mean volume (Bld) [Entitic vol] 9.4 fL Normal 9.0-12.7 [facility] Comment on above: Order Comment: Speci men Type: BLOOD SPECIMEN Ordering Facility: [facility] Address: [address] [place] [address] Performed By: #### 5 8410-2 #### [facility] CLIA [id number] [address] [place] [address] [place] Platelets (Bld) [#/Vol] 196 10*3/uL Normal 150-400 [facility] Comment on above: Order Comment: Speci men Type: BLOOD SPECIMEN Ordering Facility: [facility] Address: [address] [place] [address] Performed By: #### 5 8410-2 #### [facility] CLIA [id number] [address] [place] [address] [place] RBC (Bld) [#/Vol] 3.66 10*6/uL Low 4.20-6.00 [facility] Comment on above: Order Comment: Speci men Type: BLOOD SPECIMEN Ordering Facility: [facility] Address: [address] [place] [address] Performed By: #### 5 8410-2 #### [facility] CLIA [id number] [address] [place] [address] [place] WBC (Bld) [#/Vol] 9.04 10*3/uL Normal 3.70-11.00 [facility] Comment on above: Order Comment: Shahrzad dumont Type: BLOOD SPECIMEN Ordering Facility: [facility] Address: [place] [address] Performed By: #### 5 8410-2 #### [facility] CLIA [id number] [facility] [address] [facility] CNDSon 12-11-2022 CNDS HNO ID: [id number] Author: Brittany Rubio PA-C Service: Neurosurgery Author Type: Physician Defense Analyst Type: Discharge Summary Filed: 12/11/2022 10:38 AM [...] you become constipated, you may use any vwgh-uqf-qeopgyw treatment such as Milk of Magnesia, Sennakot, Prune Juice, Suppositories, etc. in addition to the stool softener/fiber supplement No alcohol or driving while on pain medication Use the dispensed medication (see prescription) You should use an lsic-hof-dwgbemu stool softener (Docusate sodium) and/or a fiber [...] call for appointment?: (more content not included)... [facility] CONSULTon 12-11-2022 CONSULT HNO ID: [id number] Author: Jaiden Rucker PA-C Service: Pain Management Author Type: Physician Defense Analyst Type: Consults Filed: 12/11/2022 8:09 AM Note [...] 8/10 Lack of pain control with iv operations specialists fentanyl and dilaudid PERTINENT ROS: denies fever, [...] (fL) Date Saniya (more content not included)... [facility] NURSING PROGon 12-11-2022 NURSING PROG HNO ID: [id number] Author: Erlinda Bui, RN Service: Nursing Author [...] information. Patient verbalizing understanding of instructions. Normal [facility] Basic metabolic 2000 panelon 12-10-2022 Anion gap [Moles/Vol] 7 mmol/L Low -18 [facility] Comment on above: Order Comment: Speci men Type: BLOOD SPECIMEN Ordering Facility: [facility] Address: [address] [place] [address] Performed By: #### 2 4321-2 #### [facility] CLIA [id number] [address] [place] [address] [place] Calcium [Mass/Vol] 8.3 mg/dL Low 8.5-10.2 [facility] Comment on above: Order Comment: Speci men Type: BLOOD SPECIMEN Ordering Facility: [facility] Address: [address] [place] [address] Performed By: #### 2 4321-2 #### [facility] CLIA [id number] [address] [place] [address] [place] Chloride [Moles/Vol] 107 mmol/L High 97-105 [facility] Comment on above: Order Comment: Speci men Type: BLOOD SPECIMEN Ordering Facility: [facility] Address: [address] [place] [address] Performed By: #### 2 4321-2 #### [facility] CLIA [id number] [address] [place] [address] [place] CO2 [Moles/Vol] 26 mmol/L Normal 22-30 [facility] Comment on above: Order Comment: Speci men Type: BLOOD SPECIMEN Ordering Facility: [facility] Address: [address] [place] [address] Performed By: #### 2 4321-2 #### [facility] CLIA [id number] [address] [place] [address] [place] Creatinine [Mass/Vol] 1.16 mg/dL Normal 0.73-1.22 [facility] Comment on above: Order Comment: Shahrzad dumont Type: BLOOD SPECIMEN Ordering Facility: [facility] Address: [address] [place] [address] Performed By: #### 2 4321-2 #### [facility] CLIA [id number] [address] [place], [place] [address] [place] Creatinine and Glomerular filtration rate.predicted panel (S/P/Bld) 73 mL/min/1.73m??? Normal >=60 [facility] Comment on above: Order Comment: Toneyfrances dumont Type: BLOOD SPECIMEN Ordering Facility: [facility] Address: [address] [place] [address] Result Comment: Leah mated Glomerular Filtration Rate [...] GFR. Performed By: #### 2 4321-2 #### [facility] CLIA [id number] [address] [place], [place] [address] [place] Glucose [Mass/Vol] 129 mg/dL High 74-99 [facility] Comment on above: Order Comment: Shahrzad dumont Type: BLOOD SPECIMEN Ordering Facility: [facility] Address: [address] [place] [address] Result Comment: The [place] Diabetes Association (ADA) provides guidance for cutoff [...] Standards of Medical Care in Diabetes 2016, [place] [employer]. Diabetes Care. 2016.39(Suppl 1). Performed By: #### 2 4321-2 #### [facility] CLIA [id number] [address] [place] [address] [place] Potassium [Moles/Vol] 4.3 mmol/L Normal 3.7-5.1 [facility] Comment on above: Order Comment: Speci men Type: BLOOD SPECIMEN Ordering Facility: [facility] Address: [address] [place] [address] Performed By: #### 2 4321-2 #### [facility] CLIA [id number] [address] [place] [address] [place] Sodium [Moles/Vol] 140 mmol/L Normal 136-144 [facility] Comment on above: Order Comment: Speci men Type: BLOOD SPECIMEN Ordering Facility: [facility] Address: [address] [place] [address] Performed By: #### 2 4321-2 #### [facility] CLIA [id number] [address] [place] [address] [place] Urea nitrogen [Mass/Vol] 16 mg/dL Normal 9-24 [facility] Comment on above: Order Comment: Speci men Type: BLOOD SPECIMEN Ordering Facility: [facility] Address: [address] [place] [address] Performed By: #### 2 4321-2 #### [facility] IA [id number] [address] [place] [address] [place] CBC panel Auto (Bld)on 12-10 Erythrocyte distribution width (RBC) [Ratio] 12.6 % Normal 11.5-15.0 [facility] Comment on above: Order Comment: Speci men Type: BLOOD SPECIMEN Ordering Facility: [facility] Address: [address] [place] [address] Performed By: #### 5 8410-2 #### [facility] CLIA [id number] [address] [place] [address] [place] Hematocrit (Bld) [Volume fraction] 32.7 % Low 39.0-51.0 [facility] Comment on above: Order Comment: Speci men Type: BLOOD SPECIMEN Ordering Facility: [facility] Address: [address] [place] [address] Performed By: #### 5 8410-2 #### [facility] CLIA [id number] [address] [place] [address] [place] Hemoglobin (Bld) [Mass/Vol] 10.9 g/dL Low 13.0-17.0 [facility] Comment on above: Order Comment: Speci men Type: BLOOD SPECIMEN Ordering Facility: [facility] Address: [address] [place] [address] Performed By: #### 5 8410-2 #### [facility] IA [id number] [address] [place] [address] [place] MCH (RBC) [Entitic mass] 31.5 pg Normal 26.0-34.0 [facility] Comment on above: Order Comment: Speci men Type: BLOOD SPECIMEN Ordering Facility: [facility] Address: [address] [place] [address] Performed By: #### 5 8410-2 #### [facility] IA [id number] [address] [place] [address] [place] MCHC (RBC) [Mass/Vol] 33.3 g/dL Normal 30.5-36.0 [facility] Comment on above: Order Comment: Speci men Type: BLOOD SPECIMEN Ordering Facility: [facility] Address: [address] [place] [address] Performed By: #### 5 8410-2 #### [facility] IA [id number] [address] [place] [address] [place] MCV (RBC) [Entitic vol] 94.5 fL Normal 80.0-100.0 [facility] Comment on above: Order Comment: Speci men Type: BLOOD SPECIMEN Ordering Facility: [facility] Address: [address] [place] [address] Performed By: #### 5 8410-2 #### [facility] IA [id number] [address] [place] [address] [place] Nucleated RBC (Bld) [#/Vol] 10*3/uL Normal <0.01 [facility] Comment on above: Order Comment: Speci men Type: BLOOD SPECIMEN Ordering Facility: [facility] Address: [address] [place] [address] Performed By: #### 5 8410-2 #### [facility] CLIA [id number] [address] [place], [place] [address] [place] Platelet mean volume (Bld) [Entitic vol] 9.6 fL Normal 9.0-12.7 [facility] Comment on above: Order Comment: Speci men Type: BLOOD SPECIMEN Ordering Facility: [facility] Address: [address] [place] [address] Performed By: #### 5 8410-2 #### [facility] CLIA [id number] [address] [place] [address] [place] Platelets (Bld) [#/Vol] 157 10*3/uL Normal 150-400 [facility] Comment on above: Order Comment: Speci men Type: BLOOD SPECIMEN Ordering Facility: [facility] Address: [address] [place] [address] Performed By: #### 5 8410-2 #### [facility] IA [id number] [address] [place] [address] [place] RBC (Bld) [#/Vol] 3.46 10*6/uL Low 4.20-6.00 [facility] Comment on above: Order Comment: Speci men Type: BLOOD SPECIMEN Ordering Facility: [facility] Address: [address] [place] [address] Performed By: #### 5 8410-2 #### [facility] CLIA [id number] [address] [place] [address] [place] WBC (Bld) [#/Vol] 8.16 10*3/uL Normal 3.70-11.00 [facility] Comment on above: Order Comment: Speci men Type: BLOOD SPECIMEN Ordering Facility: [facility] Address: [address] [place] [address] Performed By: #### 5 8410-2 #### [facility] CLIA [id number] [address] [place] [address] [place] THERAPY NTon 12-10-2022 THERAPY NT HNO ID: [id number] Author: Odilon Madrid PT Service: Physical Therapy Author Type: Physical Therapist Type: Therapy (PT/OT/Speech/Resp) Filed: 12/10/2022 11:20 AM Note Text: PHYSICAL THERAPY MISSED VISIT SERVICE DATE: 12/10/2022 SERVICE TIME: 1109 to 1111 ROOM: [place] [address] Patient not seen due to Refused Treatment. Pt reported pain levels are too high to attempt therapy. Will f/u as schedule allows and pain improves. SIGNATURE: Odilon Madrid PT PATIENT NAME: Sukhdeep Simental DATE: December 10, 2022 TIME: 11:20 AM [facility] ALLIED HEALTHon 12-09-2022 ALLIED HEALTH HNO ID: [id number] Author: Akila Huitron RT(R) Service: Radiology Author [...] RT Jose(R) December 09, 2022 2:01 PM [facility] Basic metabolic 2000 panelon 12-09-2022 Anion gap [Moles/Vol] 6 mmol/L Low 11-12 [facility] Comment on above: Order Comment: Speci men Type: BLOOD SPECIMEN Ordering Facility: [facility] Address: [address] [place] [address] Performed By: #### 2 4321-2 #### [facility] CLIA [id number] [address] [place] [id number] [place] Calcium [Mass/Vol] 8.5 mg/dL Normal 8.5-10.2 [facility] Comment on above: Order Comment: Speci men Type: BLOOD SPECIMEN Ordering Facility: [facility] Address: [address] [place] [address] Performed By: #### 2 4321-2 #### [facility] CLIA [id number] [address] [place] [address] [place] Chloride [Moles/Vol] 106 mmol/L High 97-105 [facility] Comment on above: Order Comment: Speci men Type: BLOOD SPECIMEN Ordering Facility: [facility] Address: [address] [place] [address] Performed By: #### 2 4321-2 #### [facility] CLIA [id number] [address] [place] [address] [place] CO2 [Moles/Vol] 30 mmol/L Normal 22-30 [facility] Comment on above: Order Comment: Speci men Type: BLOOD SPECIMEN Ordering Facility: [facility] Address: [address] [place] [address] Performed By: #### 2 4321-2 #### [facility] IA [id number] [address] [place] [address] [place] Creatinine [Mass/Vol] 1.34 mg/dL High 0.73-1.22 [facility] Comment on above: Order Comment: Speci men Type: BLOOD SPECIMEN Ordering Facility: [facility] Address: [address] [place] [address] Performed By: #### 2 4321-2 #### [facility] CLIA [id number] [address] [place] [address] [place] Creatinine and Glomerular filtration rate.predicted panel (S/P/Bld) 61 mL/min/1.73m??? Normal >=60 [facility] Comment on above: Order Comment: Speci men Type: BLOOD SPECIMEN Ordering Facility: [facility] Address: [address] [place] [address] Result Comment: Leah mated Glomerular Filtration Rate [...] GFR. Performed By: #### 2 4321-2 #### [facility] CLIA [id number] [address] [place] [address] [place] Glucose [Mass/Vol] 105 mg/dL High 74-99 [facility] Comment on above: Order Comment: Shahrzad dumont Type: BLOOD SPECIMEN Ordering Facility: [facility] Address: [place] [address] Result Comment: The [place] [employer] (ADA) provides guidance for cutoff [...] Standards of Medical Care in Diabetes 2016, [place] [employer]. Diabetes Care. 2016.39(Suppl 1). Performed By: #### 2 4321-2 #### [facility] CLIA [id number] [address] [place], [place] [address] [place] Potassium [Moles/Vol] 3.9 mmol/L Normal 3.7-5.1 [facility] Comment on above: Order Comment: Shahrzad dumont Type: BLOOD SPECIMEN Ordering Facility: [facility] Address: [place] [address] Performed By: #### 2 4321-2 #### [facility] CLIA [id number] [address] [place], [place] [address] [place] Sodium [Moles/Vol] 142 mmol/L Normal 136-144 [facility] Comment on above: Order Comment: Speci men Type: BLOOD SPECIMEN Ordering Facility: [facility] Address: [address] [place] [address] Performed By: #### 2 4321-2 #### [facility] CLIA [id number] [address] [place] [address] [place] Urea nitrogen [Mass/Vol] 18 mg/dL Normal 9-24 [facility] Comment on above: Order Comment: Speci men Type: BLOOD SPECIMEN Ordering Facility: [facility] Address: [address] [place] [address] Performed By: #### 2 4321-2 #### [facility] CLIA [id number] [address] [place] [address] [place] CBC panel Auto (Bld)on 12-09 Erythrocyte distribution width (RBC) [Ratio] 12.7 % Normal 11.5-15.0 [facility] Comment on above: Order Comment: Speci men Type: BLOOD SPECIMEN Ordering Facility: [facility] Address: [address] [place] [address] Performed By: #### 5 8410-2 #### [facility] CLIA [id number] [address] [place] [address] [place] Hematocrit (Bld) [Volume fraction] 34.1 % Low 39.0-51.0 [facility] Comment on above: Order Comment: Speci men Type: BLOOD SPECIMEN Ordering Facility: [facility] Address: [address] [place] [address] Performed By: #### 5 8410-2 #### [facility] CLIA [id number] [address] [place] [address] [place] Hemoglobin (Bld) [Mass/Vol] 11.6 g/dL Low 13.0-17.0 [facility] Comment on above: Order Comment: Speci men Type: BLOOD SPECIMEN Ordering Facility: [facility] Address: [address] [place] [address] Performed By: #### 5 8410-2 #### [facility] CLIA [id number] [address] [place] [address] [place] MCH (RBC) [Entitic mass] 32.3 pg Normal 26.0-34.0 [facility] Comment on above: Order Comment: Speci men Type: BLOOD SPECIMEN Ordering Facility: [facility] Address: [address] [place] [address] Performed By: #### 5 8410-2 #### [facility] CLIA [id number] [address] [place] [address] [place] MCHC (RBC) [Mass/Vol] 34.0 g/dL Normal 30.5-36.0 [facility] Comment on above: Order Comment: Speci men Type: BLOOD SPECIMEN Ordering Facility: [facility] Address: [address] [place] [address] Performed By: #### 5 8410-2 #### [facility] CLIA [id number] [address] [place] [address] [place] MCV (RBC) [Entitic vol] 95.0 fL Normal 80.0-100.0 [facility] Comment on above: Order Comment: Speci men Type: BLOOD SPECIMEN Ordering Facility: [facility] Address: [address] [place] [address] Performed By: #### 5 8410-2 #### [facility] IA [id number] [address] [place] [address] [place] Nucleated RBC (Bld) [#/Vol] 10*3/uL Normal <0.01 [facility] Comment on above: Order Comment: Speci men Type: BLOOD SPECIMEN Ordering Facility: [facility] Address: [address] [place] [address] Performed By: #### 5 8410-2 #### [facility] CLIA [id number] [address] [place] [address] [place] Platelet mean volume (Bld) [Entitic vol] 9.6 fL Normal 9.0-12.7 [facility] Comment on above: Order Comment: Speci men Type: BLOOD SPECIMEN Ordering Facility: [facility] Address: [address] [place] [address] Performed By: #### 5 8410-2 #### [facility] CLIA [id number] [address] [place], [place] [address] [place] Platelets (Bld) [#/Vol] 159 10*3/uL Normal 150-400 [facility] Comment on above: Order Comment: Speci men Type: BLOOD SPECIMEN Ordering Facility: [facility] Address: [address] [place] [address] Performed By: #### 5 8410-2 #### [facility] CLIA [id number] [address] [place], [place] [address] [place] RBC (Bld) [#/Vol] 3.59 10*6/uL Low 4.20-6.00 [facility] Comment on above: Order Comment: Speci men Type: BLOOD SPECIMEN Ordering Facility: [facility] Address: [address] [place] [address] Performed By: #### 5 8410-2 #### [facility] IA [id number] [address] [place], [place] [address] [place] WBC (Bld) [#/Vol] 8.72 10*3/uL Normal 3.70-11.00 [facility] Comment on above: Order Comment: Speci men Type: BLOOD SPECIMEN Ordering Facility: [facility] Address: [address] [place] [address] Performed By: #### 5 8410-2 #### [facility] IA [id number] [address] [place], [place] [address] [facility] OF [place] NURSING PROGon 12-09-2022 NURSING PROG HNO ID: [id number] Author: Abdias Pemberton RN Service: Nursing Author Type: Registered Nurse Type: Nursing Progress Note Filed: 12/09/2022 7:21 PM Note Text: 12/09/2022 0826: hydromorphone [employer]EARCH ASSOCIATE QUALITY CONTROL QC rate varied. Patient rating pain 8/10 at this time stating oh, its much better than yesterday . 0931: Patient working with PT at this time 1035: Patient resting/sleeping comfortably in bed at this time. 1200: fentaNYL RESEARCH ASSOCIATE QUALITY CONTROL QC ordered. 1345: Patient ambulating in the hallway with nursing staff and . 1402: Patient at radiology for post-op XR 1406: Hydromorphone [employer]EARCH ASSOCIATE QUALITY CONTROL QC discontinued. While discontinuing the hydromorphone RESEARCH ASSOCIATE QUALITY CONTROL QC, patient made several comments about unused hydromorphone, I can take that medication off your hands. Patient educated that the medication will be properly wasted per protocol. 1407: fentaNYL RESEARCH ASSOCIATE QUALITY CONTROL QC started and Hydromorphone properly wasted per protocol. [...] Can't you increase my setting on the RESEARCH ASSOCIATE QUALITY CONTROL QC because I had better pain relief with the Dilaudid pump because I could press the button more frequent? Can you increase the pump settings? [facility] THERAPY NTon 12-09-2022 THERAPY NT HNO ID: [id number] Author: Abdias Crooks OT/L Service: Occupational Therapy Author Type: Occupational Therapist Type: Therapy (PT/OT/Speech/Resp) Filed: 12/09/2022 3:30 PM Note Text: Occupational Therapy Evaluation SERVICE DATE: 12/09/2022 SERVICE TIME: 1438 to 1502 ROOM: [place] [address] Total Joint Replacement Discharge Readiness: Cleared from [...] slower than expec (more content not included)... [facility] THERAPY NT HNO ID: [id number] Author: Hannah Mota PT, DPT Service: Physical Therapy Author Type: Physical Therapist Type: Therapy (PT/OT/Speech/Resp) Filed: 12/09/2022 10:06 AM Note Text: Physical Therapy Treatment SERVICE DATE: 12/09/2022 SERVICE TIME: 930 to 954 ROOM: [place] [address] Total Joint Replacement Discharge Readiness: Cleared from Physical Therapy Recommended Discharge Disposition: Home Anticipated Discharge Needs: Physical Assist at Home Physical Assist at Home for: Cleaning, Laundry, Meals, Stairs, Safety Recommended Discharge Equipment: No equipment needs anticipated PT 6 Clicks Score: 24 Pt agreeable to participate. Reports slight improvement in pain compared to yesterday but relies highly on RESEARCH ASSOCIATE QUALITY CONTROL QC. Pt able to ambulate around unit with [...] Difficulty walking-musculoskeleta l Interventions Provided: Therapeutic Activity (98737), Gait Training (01929) Therapeutic Activity (50571) Treatment Minutes: 10 $ Therapeutic Activity (80153) Billed Units: 1 unit Gait Training (67529) Treatment Minutes: 14 $ Gait Training (09494) Billed Units: 1 unit Training AND Education [...] for this therapy (more content not included)... [facility] XR LUMBAR 2V AP/LATon 2022 XR LUMBAR [...] IMPRESSION: Postoperative and degenerative changes as described. Edge Gluer: COURTNEY Transcribe Date/Time: Dec 09 2022 3:39P Dictated by : DONNY WOO DO This examination was interpreted and the report reviewed and electronically signed by: DONNY WOO DO on Dec 09 2022 3:42PM EST [id number] Normal [facility] Basic metabolic 2000 panelon 12-08-2022 Anion gap [Moles/Vol] 7 mmol/L Low 9-18 [facility] Comment on above: Order Comment: Speci men Type: BLOOD SPECIMEN Ordering Facility: [facility] Address: [address] [place] [address] Performed By: #### 2 4321-2 #### [facility] CLIA [id number] [address] [place] [address] [place] Calcium [Mass/Vol] 8.2 mg/dL Low 8.5-10.2 [facility] Comment on above: Order Comment: Speci men Type: BLOOD SPECIMEN Ordering Facility: [facility] Address: [address] [place] [address] Performed By: #### 2 4321-2 #### [facility] CLIA [id number] [address] [place] [address] [place] Chloride [Moles/Vol] 106 mmol/L High 97-105 [facility] Comment on above: Order Comment: Speci men Type: BLOOD SPECIMEN Ordering Facility: [facility] Address: [address] [place] [address] Performed By: #### 2 4321-2 #### [facility] CLIA [id number] [address] [place], [place] [address] [place] CO2 [Moles/Vol] 28 mmol/L Normal 22-30 [facility] Comment on above: Order Comment: Speci men Type: BLOOD SPECIMEN Ordering Facility: [facility] Address: [address] [place] [address] Performed By: #### 2 4321-2 #### [facility] CLIA [id number] [address] [place] [id number] [place] Creatinine [Mass/Vol] 1.35 mg/dL High 0.73-1.22 [facility] Comment on above: Order Comment: Shahrzad dumont Type: BLOOD SPECIMEN Ordering Facility: [facility] Address: [address] [place] [address] Performed By: #### 2 4321-2 #### [facility] CLIA [id number] [address] [place] [address] [place] Creatinine and Glomerular filtration rate.predicted panel (S/P/Bld) 60 mL/min/1.73m??? Normal >=60 [facility] Comment on above: Order Comment: Shahrzad dumont Type: BLOOD SPECIMEN Ordering Facility: [facility] Address: [address] [place] [address] Result Comment: Leah mated Glomerular Filtration Rate [...] GFR. Performed By: #### 2 4321-2 #### [facility] CLIA [id number] [address] [place], [place] [address] [place] Glucose [Mass/Vol] 139 mg/dL High 74-99 [facility] Comment on above: Order Comment: Shahrzad dumont Type: BLOOD SPECIMEN Ordering Facility: [facility] Address: [address] [place] [address] Result Comment: The [place] [employer] (ADA) provides guidance for cutoff [...] Standards of Medical Care in Diabetes 2016, [place] [employer]. Diabetes Care. 2016.39(Suppl 1). Performed By: #### 2 4321-2 #### [facility] CLIA [id number] [address] [place] [address] [place] Potassium [Moles/Vol] 3.7 mmol/L Normal 3.7-5.1 [facility] Comment on above: Order Comment: Speci men Type: BLOOD SPECIMEN Ordering Facility: [facility] Address: [address] [place] [address] Performed By: #### 2 4321-2 #### [facility] CLIA [id number] [address] [place] [address] [place] Sodium [Moles/Vol] 141 mmol/L Normal 136-144 [facility] Comment on above: Order Comment: Speci men Type: BLOOD SPECIMEN Ordering Facility: [facility] Address: [address] [place] [address] Performed By: #### 2 4321-2 #### [facility] CLIA [id number] [address] [place] [address] [place] Urea nitrogen [Mass/Vol] 23 mg/dL Normal 9-24 [facility] Comment on above: Order Comment: Speci men Type: BLOOD SPECIMEN Ordering Facility: [facility] Address: [address] [place] [address] Performed By: #### 2 4321-2 #### [facility] CLIA [id number] [address] [place] [address] OF [place] CASE MGT INIT ASSESon 2022 CASE MGT INIT ASSES HNO ID: [id number] Author: Gloria Toro RN Service: ? Author Type: Registered Nurse Type: Care Mgt Initial Assessment Filed: 12/08/2022 8:48 AM Note Text: CARE MANAGEMENT: ASSESSMENT AND DISCHARGE PLAN SERVICE DATE: December 08, 2022 SERVICE TIME: 8:46 am PCP: Blayne Isabel MD Primary Contact: Extended Emergency Contact Information Primary Emergency Contact: Darryl Simental Address: [address] [place] [address] [place] Mobile Relation: Spouse [...] to go home, General wellness, Less pain [place] of Choice Explained: [place] Given: No Reason Not Given: No placements necessary Discharge Planning Participant(s): Patient Patient/Family Comments: Caregiver Assessment: Transport at Discharge: Needs Prior to Discharge: Needs Prior to Discharge: To Be Determined;OT/PT Evaluation Post-Acute Discharge Plan: CM met with patient at the bedside this a.m., has rollator, cane AND walker, says will be driving him home at ID and can assist him as well, per eval, no further skilled PT / OT needed at ID. CM Department will continue to follow until ID. SIGNATURE: Gloria Toro RN PATIENT NAME: Sukhdeep Simental DATE: December 08, 2022 TIME: 8:46 AM CONTACT #: [phone] [facility] CBC panel Auto (Bld)on 12-08 Erythrocyte distribution width (RBC) [Ratio] 12.8 % Normal 11.5-15.0 [facility] Comment on above: Order Comment: Shahrzad dumont Type: BLOOD SPECIMEN Ordering Facility: [facility] Address: [address] [place] [address] Performed By: #### 5 8410-2 #### [facility] CLIA [id number] [address] [place] [address] [place] Hematocrit (Bld) [Volume fraction] 34.8 % Low 39.0-51.0 [facility] Comment on above: Order Comment: Shahrzad dumont Type: BLOOD SPECIMEN Ordering Facility: [facility] Address: [address] [place] [address] Performed By: #### 5 8410-2 #### [facility] IA [id number] [address] [place] [address] [place] Hemoglobin (Bld) [Mass/Vol] 11.7 g/dL Low 13.0-17.0 [facility] Comment on above: Order Comment: Speci men Type: BLOOD SPECIMEN Ordering Facility: [facility] Address: [address] [place] [address] Performed By: #### 5 8410-2 #### [facility] IA [id number] [address] [place] [address] [place] MCH (RBC) [Entitic mass] 31.8 pg Normal 26.0-34.0 [facility] Comment on above: Order Comment: Speci men Type: BLOOD SPECIMEN Ordering Facility: [facility] Address: [address] [place] [address] Performed By: #### 5 8410-2 #### [facility] IA [id number] [address] [place] [address] [place] MCHC (RBC) [Mass/Vol] 33.6 g/dL Normal 30.5-36.0 [facility] Comment on above: Order Comment: Speci men Type: BLOOD SPECIMEN Ordering Facility: [facility] Address: [address] [place] [address] Performed By: #### 5 8410-2 #### [facility] IA [id number] [address] [place] [address] [place] MCV (RBC) [Entitic vol] 94.6 fL Normal 80.0-100.0 [facility] Comment on above: Order Comment: Speci men Type: BLOOD SPECIMEN Ordering Facility: [facility] Address: [address] [place] [address] Performed By: #### 5 8410-2 #### [facility] IA [id number] [address] [place] [address] [place] Nucleated RBC (Bld) [#/Vol] 10*3/uL Normal <0.01 [facility] Comment on above: Order Comment: Speci men Type: BLOOD SPECIMEN Ordering Facility: [facility] Address: [address] [place] [address] Performed By: #### 5 8410-2 #### [facility] CLIA [id number] [address] [place] [address] [place] Platelet mean volume (Bld) [Entitic vol] 9.4 fL Normal 9.0-12.7 [facility] Comment on above: Order Comment: Speci men Type: BLOOD SPECIMEN Ordering Facility: [facility] Address: [address] [place] [address] Performed By: #### 5 8410-2 #### [facility] CLIA [id number] [address] [place] [address] [place] Platelets (Bld) [#/Vol] 162 10*3/uL Normal 150-400 [facility] Comment on above: Order Comment: Speci men Type: BLOOD SPECIMEN Ordering Facility: [facility] Address: [address] [place] [address] Performed By: #### 5 8410-2 #### [facility] CLIA [id number] [address] [place] [address] [place] RBC (Bld) [#/Vol] 3.68 10*6/uL Low 4.20-6.00 [facility] Comment on above: Order Comment: Speci men Type: BLOOD SPECIMEN Ordering Facility: [facility] Address: [address] [place] [address] Performed By: #### 5 8410-2 #### [facility] CLIA [id number] [address] [place] [address] [place] WBC (Bld) [#/Vol] 7.95 10*3/uL Normal 3.70-11.00 [facility] Comment on above: Order Comment: Speci men Type: BLOOD SPECIMEN Ordering Facility: [facility] Address: [address] [place] [address] Performed By: #### 5 8410-2 #### [facility] CLIA [id number] [address] [place] [address] [place] CONSULTon 12-08-2022 CONSULT HNO ID: [id number] Author: Lulu Oviedo MD Service: General Internal [...] Recent Labs 12/08 (more content not included)... [facility] NURSING PROGon 12-08-2022 NURSING PROG HNO ID: [id number] Author: Abdias Pemberton, RN Service: Nursing Author [...] notified of the patient's increased pain after RESEARCH ASSOCIATE QUALITY CONTROL QC was DC'ed earlier and transitioned to PO medications. Hydromorphone RESEARCH ASSOCIATE QUALITY CONTROL QC reordered per Dr. Mathew. 1729: Hydromorphone RESEARCH ASSOCIATE QUALITY CONTROL QC restarted. 1735: Patient assisted by nursing staff to bed and states that his pain has decreased. Patient resting comfortably in bed at this time. 1900: Patient resting comfortably in bed at this time. [facility] THERAPY NTon 12-08-2022 THERAPY NT HNO ID: [id number] Author: Taylor Montoya OTR/Kelly Service: Occupational Therapy Author Type: Occupational Therapist Type: Therapy (PT/OT/Speech/Resp) Filed: 12/08/2022 12:35 PM Note Text: OCCUPATIONAL THERAPY MISSED VISIT SERVICE DATE: 12/08/2022 SERVICE TIME: 1233 to 1233 ROOM: [place] [address] Patient not seen due to Refused Treatment. Patient having a significant amount of pain. Offered patient option of working with OT tomorrow. Pt would prefer OT evaluation tomorrow. SIGNATURE: URSULA Glynn/Kelly PATIENT NAME: Sukhdeep Simental DATE: December 08, 2022 TIME: 12:34 PM [facility] THERAPY NT HNO ID: [id number] Author: Jean-Pierre Lutz, PT, DPT Service: Physical Therapy Author Type: Physical Therapist Type: Therapy (PT/OT/Speech/Resp) Filed: 12/08/2022 8:44 AM Note Text: Physical Therapy Evaluation SERVICE DATE: 12/08/2022 SERVICE TIME: 807 to 830 ROOM: [place] [address] Cleared from Physical Therapy Recommended Discharge Disposition: [...] Weakness (generalized) Interventions Provided: Evaluation, Gait Training (38745) $ Evaluation-Low (23259) Billed Units: 1 unit Gait Training (22410) Treatment Minutes: 8 $ Gait Training (65828) Billed Units: 1 unit Training AND Education [...] DATE: December 08, 2022 TIME: 8:44 AM [facility] ANES POSTPROC EVALon 023 ANES POSTPROC EVAL HNO ID: [id number] Author: Ankit Orlando MD Service: Anesthesiology Author Type: Anesthesiologist Type: Anesthesia Postprocedure Evaluation Filed: 12/07/2022 3:37 PM Note Text: POST ANESTHESIA EVALUATION NOTE : 1965 Procedure Summary Date: 12/07/22 Room / Location: [place] [address] / [place] Anesthesia Start: 737 Anesthesia Stop: [...] December 07, 2022 TIME: 3:37 PM CSN: [id number] [facility] ANES PRE-OPon 12-07-2022 ANES PRE-OP HNO ID: [id number] Author: Nasim Pruett I, MD Service: Anesthesiology [...] December 07, 2022 TIME: 7:01 AM CSN: [id number] [facility] BRIEF OP NOTon 12-07-2022 BRIEF OP NOT HNO ID: [id number] Author: Thomas Mathew MD Service: Neurosurgery Author Type: Physician Type: Brief Op Note Filed: 12/07/2022 12:49 PM Note Text: BRIEF OPERATIVE / PROCEDURE NOTE LOG ID: [id number] SURGERY/PROCEDURE DATE: 12/07/2022 INCISION/PROCEDURE START TIME: 8:09 AM INCISION CLOSE/PROCEDURE END TIME: 12:34 PM SURGEON(S)/PROCEDURALI ST(S) AND WARPING MACHINE OPERATOR(S): Surgeon(s) and Role: * Thomas Mathew MD [...] DATE: December 07, 2022 TIME: 12:31 PM [facility] NURSING PROGon 12-07-2022 NURSING PROG HNO ID: [id number] Author: Livia Calix RN Service: ? Author Type: Registered Nurse Type: Nursing Progress Note Filed: 12/07/2022 2:48 PM Note Text: Transfer Note: PATIENT NAME: Sukhdeep Simental Patient Location: [address]/[place] [address] Room: [place] [address] Patient transferred into room/unit 503-2 in stable condition. Patient educated on use of call light, fall precautions, and incentive spirometer. No futher actions taken at this time. Will continue to monitor and check with patient. [facility] OPERATIVE NOon 12-07-2022 OPERATIVE NO HNO ID: [id number] Author: Thomas Mathew MD Service: Neurosurgery Author Type: Physician Type: Operative Report Filed: 12/07/2022 3:54 PM Note Text: OPERATIVE/PROCEDURE REPORT LOG ID: [id number] SURGERY/PROCEDURE DATE: 12/07/2022 INCISION/PROCEDURE START TIME: 8:09 AM INCISION CLOSE/PROCEDURE END TIME: 12:34 PM SURGEON(S)/PROCEDURALI ST(S) AND WARPING MACHINE OPERATOR(S): Surgeon(s) and Role: * Thomas Mathew MD [...] scalpel. The disc space was entered with gnina and spreaders. The endplates were prepared and a trial was placed into the disc space. A trial interbody cage was used and sized at a 10 mm. The [employer] system was the instrumentation system used. Local [...] drill was used to make a small lock master hole. The gear shift along with pedicle [...] Implant Name Type Inv. Item Serial No. Child Care Attendant School Lot No. LRB No. Used Action VITOSS [id number] BIOACTIVE BONE GRAFT SUBSTITUTE 5.0CUB CM Implant [place] [id number] N/A 1 Implanted CAGE TRITANIUM 6D [id number] SPINAL STERILE LATEX FREE LUMBAR POSTERIOR - [id number] Implant CAGE TRITANIUM 6D [id number] SPINAL STERILE LATEX FREE LUMBAR POSTERIOR [place] SPINE T9H8 N/A 1 Implanted CAGE TRITANIUM 6D [id number] SPINAL STERILE LATEX FREE LUMBAR POSTERIOR - [id number] Implant CAGE TRITANIUM 6D [id number] (more content not included)... [facility] XR LUMBAR 2V AP/LATon 2022 XR LUMBAR 2V AP/LAT * * *Final Report* * * DATE OF EXAM: Dec 07 2022 12:52PM ID [facility] - XR LUMBAR 2V AP/LAT / [...] examination for surgical planning and documentation. . Edge Gluer: PSCB Transcribe Date/Time: Dec 07 2022 3:13P Dictated by : DONNY WOO DO This examination was interpreted and the report reviewed and electronically signed by: DONNY WOO DO on Dec 07 2022 3:15PM EST [id number] [facility] XR LUMBAR 2V AP/LAT * * *Final Report* * * DATE OF EXAM: Dec 07 2022 11:33AM [place] [id number] - XR LUMBAR 2V AP/LAT / PROCEDURE [...] Intraoperative examination for surgical planning and documentation. Edge Gluer: COURTNEY Transcribe Date/Time: Dec 07 2022 2:43P Dictated by : DONNY WOO DO This examination was interpreted and the report reviewed and electronically signed by: DONNY WOO DO on Dec 07 2022 2:46PM EST [id number] [facility] XR LUMBAR 2V AP/LAT * * *Final [...] examination for surgical planning and documentation. . Edge Gluer: [employer] Transcribe Date/Time: Dec 07 2022 2:37P Dictated by : DONNY WOO DO This examination was interpreted and the report reviewed and electronically signed by: DONNY WOO DO on Dec 07 2022 2:40PM EST [id number] [facility] 11-29-2022 [facility] Telephone (NIQ) SUKHDEEP SIMENTAL ([id number]) 1965 M Date Time Provider Department 11/29/22 THOMAS MATHEW [facility] During your visit today, we recorded the following information about you: Moriah Ferguson 11/29/2022 9:50 AM Signed Patient called regarding a C/9 being filed for his Dec 07 surgery. He spoke to his [facility] contact and they said nothing has been filed yet. Please update patient. Juan Pablo Nova RN 11/29/2022 10:27 AM Signed C9 sent to provider for signature. Awaiting signature. Juan Pablo Nova RN 11/29/2022 12:20 PM Signed Signed C9 sent to [facility] and [facility]. Faxed verifications received. Kathe Lezama 12/05/2022 11:01 AM Signed Patient calling asking for an update on his C9 and surgery approval. He would like to know if nurse can reach out to [facility] for an update and let him know. Juan Pablo Nova RN 12/05/2022 11:43 AM Signed Called Sunita and discussed patient's upcoming surgery. Per Sunita she did already explain to the patient that the information was submitted to the [employer] for review and does take up to 5 business days for a decision. Juan Pablo Nova RN 12/05/2022 1:16 PM Signed Spoke with patient. Informed case is still on for Saturday and that I spoke with Sunita. Patient appreciative of call. Ekaterina Rondon 12/06/2022 11:34 AM Addendum Sunita called from [facility], regarding patient surgery tomorrow. Surgery has been approved based on what it was shown on the medical record. Sunita wanted a called back # [phone] Ekaterina Rondon 12/06/2022 11:35 AM Signed [facility] Scan in patient chart [...] Date Reviewed: 11/21/2022 Reviewed by: Maite Galloway APRN.WALL CRANE OPERATOR - Fully Assessed Reason for Visit: [...] by JUAN PABLO NOVA on 11/29/22 Normal [facility] CBC W Auto Differential pane l (Bld)on 11-21-2022 Basophils (Bld) [#/Vol] 0.04 10*3/uL Normal <0.11 [facility] Comment on above: Order Comment: Speci men Type: BLOOD SPECIMENOrdering Facility: [facility] Address: [address] [address] Performed By: #### 5 7021-8 ####[facility] LABIA [id number] [place] [address] [place] Basophils/100 WBC (Bld) 0.8 % Normal [facility] Comment on above: Order Comment: Speci men Type: BLOOD SPECIMENOrdering Facility: [facility] Address: [address] [address] Performed By: #### 5 7021-8 ####[facility] LABIA [id number] [place] Differential cell count method Nom (Bld) Auto Normal [facility] Comment on above: Order Comment: Speci men Type: BLOOD SPECIMENOrdering Facility: [facility] Address: [address] [place] [address] Performed By: #### 5 7021-8 ####[facility] LABCLIA [id number] [place] [address] [place] Eosinophils (Bld) [#/Vol] 0.11 10*3/uL Normal <0.46 [facility] Comment on above: Order Comment: Speci men Type: BLOOD SPECIMENOrdering Facility: [facility] Address: [address] [place] [address] Performed By: #### 5 7021-8 ####[facility] LABCLIA [id number] [address] [place] Eosinophils/100 WBC (Bld) 2.1 % Normal [facility] Comment on above: Order Comment: Speci men Type: BLOOD SPECIMENOrdering Facility: [facility] Address: [address] [place], [place] [phone] Performed By: #### 5 7021-8 ####[facility] LABCLIA [id number] [place] [address] [place] Erythrocyte distribution width (RBC) [Ratio] 12.4 % Normal 11.5-15.0 [facility] Comment on above: Order Comment: Speci men Type: BLOOD SPECIMENOrdering Facility: [facility] Address: [address] [place], [place] [phone] Performed By: #### 5 7021-8 ####[facility] LABCLIA [id number] [place] [address] [place] Hematocrit (Bld) [Volume fraction] 42.9 % Normal 39.0-51.0 [facility] Comment on above: Order Comment: Speci men Type: BLOOD SPECIMENOrdering Facility: [facility] Address: [address] Performed By: #### 5 7021-8 ####[facility] LABCLIA [id number] [place] [address] [place] Hemoglobin (Bld) [Mass/Vol] 14.5 g/dL Normal 13.0-17.0 [facility] Comment on above: Order Comment: Speci men Type: BLOOD SPECIMENOrdering Facility: [facility] Address: [address] [place], [place] [phone] Performed By: #### 5 7021-8 ####[facility] LABCLIA [id number] [place] [address] [place] Immature granulocytes (Bld) [#/Vol] 10*3/uL Normal <0.10 [facility] Comment on above: Order Comment: Speci men Type: BLOOD SPECIMENOrdering Facility: [facility] Address: [address] [place], [place] [phone] Performed By: #### 5 7021-8 ####[facility] LABCLIA [id number] [place] [address] [place] Immature granulocytes/100 WBC (Bld) 0.4 % Normal [facility] Comment on above: Order Comment: Speci men Type: BLOOD SPECIMENOrdering Facility: [facility] Address: [address] [place], [place] [phone] Performed By: #### 5 7021-8 ####[facility] LABCLIA [id number] [place] [address] [place] Lymphocytes (Bld) [#/Vol] 1.45 10*3/uL Normal 1.00-4.00 [facility] Comment on above: Order Comment: Speci men Type: BLOOD SPECIMENOrdering Facility: [facility] Address: [address] [place], [place] [phone] Performed By: #### 5 7021-8 ####[facility] LABCLIA [id number] [address] [place] Lymphocytes/100 WBC (Bld) 27.4 % Normal [facility] Comment on above: Order Comment: Speci men Type: BLOOD SPECIMENOrdering Facility: [facility] Address: [address] [place] [address] Performed By: #### 5 7021-8 ####[facility] LABIA [id number] [address] MCH (RBC) [Entitic mass] 31.7 pg Normal 26.0-34.0 [facility] Comment on above: Order Comment: Speci men Type: BLOOD SPECIMENOrdering Facility: [facility] Address: [address] [place] [address] Performed By: #### 5 7021-8 ####[facility] LABIA [id number] [address] [place] [facility] MCHC (RBC) [Mass/Vol] 33.8 g/dL Normal 30.5-36.0 [facility] Comment on above: Order Comment: Speci men Type: BLOOD SPECIMENOrdering Facility: [facility] Address: [address] [place], [place] [phone] Performed By: #### 5 7021-8 ####[facility] LABIA [id number] [address] [place] MCV (RBC) [Entitic vol] 93.7 fL Normal 80.0-100.0 [facility] Comment on above: Order Comment: Speci men Type: BLOOD SPECIMENOrdering Facility: [facility] Address: [address] [place], [place] [phone] Performed By: #### 5 7021-8 ####[facility] LABIA [id number] [place] [address] [place] Monocytes (Bld) [#/Vol] 0.49 10*3/uL Normal <0.87 [facility] Comment on above: Order Comment: Speci men Type: BLOOD SPECIMENOrdering Facility: [facility] Address: [address] Performed By: #### 5 7021-8 ####[facility] LABIA [id number] [place] [address] [place] Monocytes/100 WBC (Bld) 9.2 % Normal [facility] Comment on above: Order Comment: Speci men Type: BLOOD SPECIMENOrdering Facility: [facility] Address: [address] Performed By: #### 5 7021-8 ####[facility] LABIA [id number] [place] [address] [place] Neutrophils (Bld) [#/Vol] 3.19 10*3/uL Normal 1.45-7.50 [facility] Comment on above: Order Comment: Speci men Type: BLOOD SPECIMENOrdering Facility: [facility] Address: [address] Performed By: #### 5 7021-8 ####[facility] LABIA [id number] [place] [address] [place] Neutrophils/100 WBC (Bld) 60.1 % Normal [facility] Comment on above: Order Comment: Speci men Type: BLOOD SPECIMENOrdering Facility: [facility] Address: [address] [place] [address] Performed By: #### 5 7021-8 ####[facility] LABIA [id number] [place] [address] [place] Nucleated RBC (Bld) [#/Vol] 10*3/uL Normal <0.01 [facility] Comment on above: Order Comment: Speci men Type: BLOOD SPECIMENOrdering Facility: [facility] Address: [address] [place] [address] Performed By: #### 5 7021-8 ####[facility] LABIA [id number] [place] [address] [place] Nucleated RBC/100 WBC (Bld) [Ratio] 0.0 /100 WBC Normal [facility] Comment on above: Order Comment: Speci men Type: BLOOD SPECIMENOrdering Facility: [facility] Address: [address] [place] [address] Performed By: #### 5 7021-8 ####[facility] LABIA [id number] [place] [address] [place] Platelet mean volume (Bld) [Entitic vol] 9.4 fL Normal 9.0-12.7 [facility] Comment on above: Order Comment: Speci men Type: BLOOD SPECIMENOrdering Facility: [facility] Address: [address] [place] [address] Performed By: #### 5 7021-8 ####[facility] LABIA [id number] [place] [address] [place] Platelets (Bld) [#/Vol] 222 10*3/uL Normal 150-400 [facility] Comment on above: Order Comment: Speci men Type: BLOOD SPECIMENOrdering Facility: [facility] Address: [address] [place] [address] Performed By: #### 5 7021-8 ####[facility] LABIA [id number] [place] [address] [place] RBC (Bld) [#/Vol] 4.58 10*6/uL Normal 4.20-6.00 [facility] Comment on above: Order Comment: Speci men Type: BLOOD SPECIMENOrdering Facility: [facility] Address: [address] [place] [address] Performed By: #### 5 7021-8 ####[facility] LABIA [id number] [place] [address] [place] WBC (Bld) [#/Vol] 5.30 10*3/uL Normal 3.70-11.00 [facility] Comment on above: Order Comment: Speci men Type: BLOOD SPECIMENOrdering Facility: [facility] Address: [address] [place] [address] Performed By: #### 5 7021-8 ####[facility] LABCLIA [id number] [address] STATES OF [facility] [place] BLOOD TYPEon 023 ABO A Normal [facility] Comment on above: Order Comment: Speci men Type: BLOOD SPECIMENOrdering Facility: [facility] Address: [address] [place] [address] Performed By: #### C ONABO ####CC [facility] BLOOD BANKCLIA [id number] [place] [address] [place] Rh Nom (Bld) Negative Normal [facility] Comment on above: Order Comment: Speci men Type: BLOOD SPECIMENOrdering Facility: [facility] Address: [address] [place] [address] Performed By: #### C ONABO ####CC [facility] BLOOD BANKCLIA [id number] [place] [address] [place] Comprehensive metabolic 2000 panelon 11-21-2022 Albumin [Mass/Vol] 4.3 g/dL Normal 3.9-4.9 [facility] Comment on above: Order Comment: Speci men Type: BLOOD SPECIMENOrdering Facility: [facility] Address: [address] [place] [address] Performed By: #### 2 4323-8 ####[facility] LABCLIA [id number] [place] [address] [place] ALP [Catalytic activity/Vol] 68 U/L Normal 38-113 [facility] Comment on above: Order Comment: Speci men Type: BLOOD SPECIMENOrdering Facility: [facility] Address: [address] [place] [address] Performed By: #### 2 4323-8 ####[facility] LABCLIA [id number] [address] [place] ALT [Catalytic activity/Vol] 16 U/L Normal 10-54 [facility] Comment on above: Order Comment: Speci men Type: BLOOD SPECIMENOrdering Facility: [facility] Address: [address] [place] [address] Performed By: #### 2 4323-8 ####[facility] LABCLIA [id number] [place] [address] [place] Anion gap [Moles/Vol] 10 mmol/L Normal 9-18 [facility] Comment on above: Order Comment: Speci men Type: BLOOD SPECIMENOrdering Facility: [facility] Address: [address] [place] [address] Performed By: #### 2 4323-8 ####[facility] LABCLIA [id number] [place] [address] [place] AST [Catalytic activity/Vol] 21 U/L Normal 14-40 [facility] Comment on above: Order Comment: Speci men Type: BLOOD SPECIMENOrdering Facility: [facility] Address: [address] [place] [address] Performed By: #### 2 4323-8 ####[facility] LABCLIA [id number] [place] [address] [place] Bilirubin [Mass/Vol] 0.5 mg/dL Normal 0.2-1.3 [facility] Comment on above: Order Comment: Speci men Type: BLOOD SPECIMENOrdering Facility: [facility] Address: [address] [place] [address] Performed By: #### 2 4323-8 ####[facility] LABCLIA [id number] [place] [address] [place] Calcium [Mass/Vol] 9.9 mg/dL Normal 8.5-10.2 [facility] Comment on above: Order Comment: Speci men Type: BLOOD SPECIMENOrdering Facility: [facility] Address: [address] Performed By: #### 2 4323-8 ####[facility] LABCLIA [id number] [place] [address] [place] Chloride [Moles/Vol] 106 mmol/L High 97-105 [facility] Comment on above: Order Comment: Speci men Type: BLOOD SPECIMENOrdering Facility: [facility] Address: [address] [place] [address] Performed By: #### 2 4323-8 ####[facility] LABCLIA [id number] [place] [address] [place] CO2 [Moles/Vol] 27 mmol/L Normal 22-30 [facility] Comment on above: Order Comment: Speci men Type: BLOOD SPECIMENOrdering Facility: [facility] Address: [address] [place], [place] [address] Performed By: #### 2 4323-8 ####[facility] LABCLIA [id number] [place] [address] [place] Creatinine [Mass/Vol] 1.22 mg/dL Normal 0.73-1.22 [facility] Comment on above: Order Comment: Speci men Type: BLOOD SPECIMENOrdering Facility: [facility] Address: [address] Performed By: #### 2 4323-8 ####[facility] LABCLIA [id number] [place] [address] [place] Creatinine and Glomerular filtration rate.predicted panel (S/P/Bld) 68 mL/min/1.73m??? Normal >=60 [facility] Comment on above: Order Comment: Speci men Type: BLOOD SPECIMENOrdering Facility: [facility] Address: [address] [id number] Result Comment: Leah mated Glomerular Filtration Rate [...] actual GFR. Performed By: #### 2 4323-8 ####[facility] LABCLIA [id number] [place] [address] [place] Glucose [Mass/Vol] 111 mg/dL High 74-99 [facility] Comment on above: Order Comment: Shahrzad dumont Type: BLOOD SPECIMENOrdering Facility: [facility] Address: [address] [address] Result Comment: The [place] Diabetes Association (ADA) provides guidance for cutoff [...] Standards of Medical Care in Diabetes 2016, [place] [employer] Association. Diabetes Care. 2016.39(Suppl 1). Performed By: #### 2 4323-8 ####[facility] LABCLIA [id number] [place] [address] [place] Potassium [Moles/Vol] 4.2 mmol/L Normal 3.7-5.1 [facility] Comment on above: Order Comment: Shahrzad dumont Type: BLOOD SPECIMENOrdering Facility: [facility] Address: [address] [address] Performed By: #### 2 4323-8 ####[facility] LABCLIA [id number] [place] [address] [place] Protein [Mass/Vol] 7.0 g/dL Normal 6.3-8.0 [facility] Comment on above: Order Comment: Speci men Type: BLOOD SPECIMENOrdering Facility: [facility] Address: [address] [place] [address] Performed By: #### 2 4323-8 ####[facility] LABCLIA [id number] [place] [address] [place] Sodium [Moles/Vol] 143 mmol/L Normal 136-144 [facility] Comment on above: Order Comment: Speci men Type: BLOOD SPECIMENOrdering Facility: [facility] Address: [address] [place] [address] Performed By: #### 2 4323-8 ####[facility] LABIA [id number] [address] STATES OF [facility] Urea nitrogen [Mass/Vol] 22 mg/dL Normal 9-24 [facility] Comment on above: Order Comment: Speci men Type: BLOOD SPECIMENOrdering Facility: [facility] Address: [address] [place] [address] Performed By: #### 2 4323-8 ####[facility] LABIA [id number] [address] [place] [id number] 11-21-2022 ECG01 Ventricular Rate : 6 5 BPM Atrial Rate : 65 BPM P-R Interval : 180 ms QRS Duration : 98 ms Q-T Interval : 440 ms QTC Calculation(Bazett) : 457 ms Calculated P Simpson : 0 degrees Calculated R Simpson : -10 degrees Calculated T Simpson : 49 degrees NORMAL SINUS RHYTHM NORMAL ECG Confirmed by SHANIA RESTREPO M.D. ([id number]) on 11/22/2022 12:00:34 PM NAME : SUKHDEEP SIMENTAL PID : [id number] : 1965 Gender : Male Race : ORD : Procedure Date : Nov 21 2022 10:59:49 Edit Date : Nov 22 2022 12:00:38 Diagnosis: NORMAL SINUS RHYTHM NORMAL ECG Confirmed by SHANIA RESTREPO M.D. ([id number]) on 11/22/2022 12:00:34 PM Test Reason : SURGERY Location : 545 : [facility] Overread By : SHANIA RESTREPO M.D. Edited By : SHANIA RESTREPO M.D. 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 Author Type: Nurse Practitioner [...] pain. Skin: (more content not included)... Normal [facility] HbA1c (Bld)on 11-21-2022 Average glucose Estimated from glycated hemoglobin (Bld) [Mass/Vol] 111 mg/dL Normal [facility] Comment on above: Order Comment: Shahrzad dumont Type: BLOOD SPECIMENOrdering Facility: [facility] Address: [address] [address] Result Comment: eAG: (Estimated average glucose) is a calculated value from HgbA1c and is practice representative of the average blood glucose level in the last 2-3 month period. Performed By: #### 5 5454-3 ####[facility] LABCLIA [id number] [place] [address] [place] HbA1c (Bld) [Mass fraction] 5.5 % Normal 4.3-5.6 [facility] Comment on above: Order Comment: Shahrzad dumont Type: BLOOD SPECIMENOrdering Facility: [facility] Address: [address] [address] Result Comment: [place] Diabetes Association guidelines indicate that patients with HgbA1c in the range 5.7-6.4% are at increased risk for development of diabetes, and intervention by lifestyle modification may be beneficial. HgbA1c greater or equal to 6.5% is considered diagnostic of diabetes. Performed By: #### 5 5454-3 ####[facility] LABCLIA [id number] [address] [place] TYPE AND SCREEN,30 DAYon ABO A Normal [facility] Comment on above: Order Comment: Speci men Type: BLOOD SPECIMENOrdering Facility: [facility] Address: [address] [place] [address] Performed By: #### T [id number] ####CC [facility] BLOOD BANKCLIA [id number] [address] HISTORICAL AB SCR STATUS Negative Normal [facility] Comment on above: Order Comment: Speci men Type: BLOOD SPECIMENOrdering Facility: [facility] Address: [address] [place] [address] Performed By: #### T [id number] ####CC [facility] BLOOD BANKCLIA [id number] [address] Rh Nom (Bld) Negative Normal [facility] Comment on above: Order Comment: Speci men Type: BLOOD SPECIMENOrdering Facility: [facility] Address: [address] [place] [address] Performed By: #### T [id number] ####CC [facility] BLOOD BANKCLIA [id number] [address] ABD/PELVIS WO CONon 07-06 CT [...] by: OBIE TSE Date: 2022-07-06 13:19 Normal [facility] PTH INTACTon 06-12-2022 PTH, Intact 38 pg/mL Normal 15-65 [facility] Comment on above: Performed By: #### P T #### [facility] [address] [place] [address] Dr. Hugh Landis FERRITINon 06-11-2022 Ferritin [Mass/Vol] 96.0 ng/mL Normal 26.0-388.0 [facility] Comment on above: Performed By: #### P T #### [facility] [address] [place] [address] Dr. Hugh Landis HEMOGRAM AND PLATELon 2022 Hematocrit (Bld) [Volume fraction] 39.1 % Critically low 42.0-54.0 [facility] Comment on above: Performed By: #### H H #### [facility] [address] [place] [address] Dr. Hugh Landis Hemoglobin (Bld) [Mass/Vol] 13.3 g/dL Critically low 14.0-18.0 [facility] Comment on above: Performed By: #### H H #### [facility] [address] [place] [address] Dr. Hugh Landis MCH (RBC) [Entitic mass] 30.5 pg Normal 25.9-34.0 [facility] Comment on above: Performed By: #### H H #### [facility] [address] [place] [address] Dr. Hugh Landis MCHC (RBC) [Mass/Vol] 34.0 g/dL Normal 29.9-35.2 [facility] Comment on above: Performed By: #### H H #### [facility] [address] [place] [address] Dr. Hugh Landis MCV (RBC) [Entitic vol] 89.7 fL Normal 80.0-94.0 [facility] Comment on above: Performed By: #### H H #### [facility] [address] [place] [address] Dr. Hugh Landis PLT 230 103/ul Normal 150-450 [facility] Comment on above: Performed By: #### H H #### [facility] [address] [address] [address] Hugh Landis RBC 4.36 106/ul Critically low 4.70-6.10 [facility] Comment on above: Performed By: #### H H #### [facility] [address] [address] [address] Hugh Landis WBC 4.8 103/ul Normal 4.0-11.0 [facility] Comment on above: Performed By: #### H H #### [facility] [address] [place] [address] Dr. Hugh Landis IRON AND TIBCon 06-11-2022 % SATURATION 55.0 % Normal [facility] Comment on above: Performed By: #### P T #### [facility] [address] [place] [address] Dr. Hugh Landis Iron [Mass/Vol] 137.0 ug/dL Normal 65.0-175.0 [facility] Comment on above: Performed By: #### P T #### [facility] [address] [place] [address] Dr. Hugh Landis TIBC DIRECT 249.0 ug/dL Critically low 250.0-450.0 [facility] Comment on above: Performed By: #### P T #### [facility] [address] [place] [address] Dr. Hugh Landis MAGNESIUMon 06-11-2022 Magnesium [Mass/Vol] 1.9 mg/dL Normal 1.8-2.4 [facility] Comment on above: Performed By: #### P TT #### [facility] [address] [address] [address] Hugh Landis RENAL FUNCTION PANELon 06-11 Albumin [Mass/Vol] 3.5 g/dL Normal 3.4-5.0 [facility] Comment on above: Performed By: #### P TT #### [facility] [address] [place] [address] Dr. Hugh Landis Calcium [Mass/Vol] 9.5 mg/dL Normal 8.5-10.1 [facility] Comment on above: Performed By: #### P TT #### [facility] [address] [place] [address] Dr. Hugh Landis Chloride [Moles/Vol] 107 mmol/L Normal 98-107 [facility] Comment on above: Performed By: #### P TT #### [facility] [address] [place] [address] Dr. Hugh Landis CO2 [Moles/Vol] 30.9 mmol/L Normal 21.0-32.0 [facility] Comment on above: Performed By: #### P TT #### [facility] [address] [place] [address] Dr. Hugh Landis Creatinine [Mass/Vol] 1.41 mg/dL Critically high 0.70-1.30 [facility] Comment on above: Performed By: #### P TT #### [facility] [address] [place] [address] Dr. Hugh Landis EGFR-AF ESTONIAN >60 Normal >=60 [facility] Comment on above: Performed By: #### P TT #### [facility] [address] [place] [address] Dr. Hugh Landis EGFR-NON AF ESTONIAN 52 mL/min/1.73m2 Critically low >=60 [facility] Comment on above: Performed By: #### P TT #### [facility] [address] [place] [address] Dr. Hugh Landis Glucose [Mass/Vol] 118 mg/dL Critically high 74-106 [facility] Comment on above: Performed By: #### P TT #### [facility] [address] [address] [address] Hugh Landis Phosphate [Mass/Vol] 3.0 mg/dL Normal 2.6-4.7 [facility] Comment on above: Performed By: #### P TT #### [facility] [address] [address] [address] Hugh Landis Potassium [Moles/Vol] 3.9 mmol/L Normal 3.5-5.1 [facility] Comment on above: Performed By: #### P TT #### [facility] [address] [place] [address] Dr. Hugh Landis Sodium [Moles/Vol] 143 mmol/L Normal 136-145 [facility] Comment on above: Performed By: #### P TT #### [facility] [address] [place] [address] Dr. Hugh Landis Urea nitrogen [Mass/Vol] 19.0 mg/dL Critically high 7.0-18.0 [facility] Comment on above: Performed By: #### P TT #### [facility] [address] [place] [address] Dr. Hugh Landis UA RANDOM W/MICROSCOPICon BACTERIA NONE SEEN Normal NONE SEEN [facility] Comment on above: Performed By: #### P T #### [facility] [address] [place] [address] Dr. Hugh Landis Bilirubin Ql (U) Negative Normal NEGATIVE [facility] Comment on above: Performed By: #### P T #### [facility] [address] [place] [address] Dr. Hugh Landis CAST NONE SEEN Normal NONE SEEN [facility] Comment on above: Performed By: #### P T #### [facility] [address] [place] [address] Dr. Hugh Landis Clarity (U) CLEAR Normal CLEAR [facility] Comment on above: Performed By: #### P T #### [facility] [address] [place] [address] Dr. Hugh Landis Color (U) YELLOW Normal YELLOW [facility] Comment on above: Performed By: #### P T #### [facility] [address] [place] [address] Dr. Hugh Landis Crystals LM Nom (Urine sed) NONE SEEN Normal NONE SEEN [facility] Comment on above: Performed By: #### P T #### [facility] [address] [place] [address] Dr. Hugh Landis Epithelial cells LM Ql (Urine sed) FEW Abnormal NONE SEEN /RARE [facility] Comment on above: Performed By: #### P T #### [facility] [address] [place] [address] Dr. Hugh Landis Glucose Ql (U) Negative Normal NEGATIVE [facility] Comment on above: Performed By: #### P T #### [facility] [address] [place] [address] Dr. Hugh Landis Hemoglobin Ql (U) Negative Normal NEGATIVE [facility] Comment on above: Performed By: #### P T #### [facility] [address] [place] [address] Dr. Hugh Landis Ketones Ql (U) TRACE Abnormal NEGATIVE [facility] Comment on above: Performed By: #### P T #### [facility] [address] [place] [address] Dr. Hugh Landis LEUKOCYTES Negative Normal NEGATIVE [facility] Comment on above: Performed By: #### P T #### [facility] [address] [place] [address] Dr. Hugh Landis MUCOUS MODERATE Abnormal NONE SEEN [facility] Comment on above: Performed By: #### P T #### [facility] [address] [place] [address] Dr. Hugh Landis Nitrite Ql (U) Negative Normal NEGATIVE [facility] Comment on above: Performed By: #### P T #### [facility] [address] [place] [address] Dr. Hugh Landis pH (U) 5.0 [pH] Normal 5-9 [facility] Comment on above: Performed By: #### P T #### [facility] [address] [place] [address] Dr. Hugh Landis RBC NONE SEEN Abnormal 0-2 [facility] Comment on above: Performed By: #### P T #### [facility] [address] [place] [address] Dr. Hugh Landis SPEC GRAVITY 1.025 Normal 1.005-<=1.02 5 [facility] Comment on above: Performed By: #### P T #### [facility] [address] [place] [address] Dr. Hugh Landis UA PROTEIN TRACE Normal NEGATIVE/ TRACE [facility] Comment on above: Performed By: #### P T #### [facility] [address] [place] [address] Dr. Hugh Landis Urobilinogen Qn (U) 0.2 {Dahiana'U}/dL Normal 0.2 - 1. 0 [facility] Comment on above: Performed By: #### P T #### [facility] [address] [place] [address] Dr. Hugh Landis WBC NONE SEEN Normal NONE SEEN [facility] Comment on above: Performed By: #### P T #### [facility] [address] [place] [address] Dr. Hugh Landis URIC ACID SERUMon 06-11-2022 Urate [Mass/Vol] 7.5 mg/dL Critically high 3.5-7.2 [facility] Comment on above: Performed By: #### P TT #### [facility] [address] [place] [address] Dr. Hugh Landis VITAMIN D 25 OHon 06-11-2022 VIT D 25-OH 35.0 ng/mL Normal [facility] Comment on above: Performed By: #### P T #### [facility] [address] [place] [address] Dr. Hugh Landis VIT D RANGES SEE BELOW Normal [facility] Comment on above: Result Comment: <20 ng/mL Vit D deficient 20 - <30 ng/mL Vit D insufficient 30 - 100 ng/mL Vit D sufficient >100 ng/mL Potential Toxicity Performed By: #### P T #### [facility] [address] [place] [address] Dr. Hugh Landis PROTIMEon 03-15-2022 INR Coag (PPP) [Relative time] 1.11 {INR} Normal [facility] Comment on above: Performed By: #### P T #### [facility] [address] [place] [address] Dr. Hugh Landis INR GUIDELINES SEE BELOW Normal [facility] Comment on above: Result Comment: VIC RED INR: 2.0 - 3.0 CONDITIONS NOT LISTED BELOW 2.5 - 3.5 FOR PROSTHETIC HEART VALVE REPLACEMENT 2.5 - 3.5 RECURRENT THROMBOSIS Performed By: #### P T #### [facility] [address] [place] [address] Dr. Hugh Landis PT Coag (PPP) [Time] 11.7 s Critically high 9.0-11.6 [facility] Comment on above: Performed By: #### P T #### [facility] [address] [place] [address] Dr. Hugh Landis UA (CLEAN/CATCH) [employer] INST[employer]ER/MICRO I F IND.on 03-15-2022 Bilirubin Ql (U) Negative Normal NEGATIVE [facility] Comment on above: Performed By: #### P TT #### [facility] [address] [place] [address] Dr. Hugh Landis Clarity (U) CLEAR Normal CLEAR [facility] Comment on above: Performed By: #### P TT #### [facility] [address] [place] [address] Dr. Hugh Landis Color (U) YELLOW Normal YELLOW [facility] Comment on above: Performed By: #### P TT #### [facility] [address] [place] [address] Dr. Hugh Landis Glucose Ql (U) Negative Normal NEGATIVE [facility] Comment on above: Performed By: #### P TT #### [facility] [address] [place] [address] Dr. Hugh Landis Hemoglobin Ql (U) SMALL Abnormal NEGATIVE [facility] Comment on above: Performed By: #### P TT #### [facility] [address] [place] [address] Dr. Hugh Landis Ketones Ql (U) Negative Normal NEGATIVE [facility] Comment on above: Performed By: #### P TT #### [facility] [address] [place] [address] Dr. Hugh Landis LEUKOCYTES Negative Normal NEGATIVE [facility] Comment on above: Performed By: #### P TT #### [facility] [address] [address] [address] Hugh Landis Nitrite Ql (U) Negative Normal NEGATIVE [facility] Comment on above: Performed By: #### P TT #### [facility] [address] [place] [address] Dr. Hugh Landis pH (U) 5.5 [pH] Normal 5-9 [facility] Comment on above: Performed By: #### P TT #### [facility] [address] [place] [address] Dr. Hugh Landis SPEC GRAVITY 1.025 Normal 1.005-<=1.02 5 [facility] Comment on above: Performed By: #### P TT #### [facility] [address] [place] [address] Dr. Hugh Landis UA PROTEIN Negative Normal NEGATIVE/ TRACE [facility] Comment on above: Performed By: #### P TT #### [facility] [address] [place] [address] Dr. Hugh Landis UR MICRO IND INDICATED Normal [facility] Comment on above: Performed By: #### P TT #### [facility] [address] [place] [address] Dr. Hugh Landis Urobilinogen Qn (U) 0.2 {Dahiana'U}/dL Normal 0.2 - 1. 0 [facility] Comment on above: Performed By: #### P TT #### [facility] [address] [place] [address] Dr. Hugh Landis URINE MICROSCOPIC ONLYon BACTERIA TRACE Abnormal NONE SEEN [facility] Comment on above: Performed By: #### P TT #### [facility] [address] [place] [address] Dr. Hugh Landis Bacteria identified Cx Nom (U) NOT INDICATED Normal [facility] Comment on above: Performed By: #### P TT #### [facility] [address] [place] [address] Dr. Hugh Landis CAST NONE SEEN Normal NONE SEEN [facility] Comment on above: Performed By: #### P TT #### [facility] [address] [place] [address] Dr. Hugh Landis Crystals LM Nom (Urine sed) NONE SEEN Normal NONE SEEN [facility] Comment on above: Performed By: #### P TT #### [facility] [address] [place] [address] Dr. Hugh Landis Epithelial cells LM Ql (Urine sed) RARE Normal NONE SEEN /RARE [facility] Comment on above: Performed By: #### P TT #### [facility] [address] [place] [address] Dr. Hugh Landis MUCOUS NONE SEEN Normal NONE SEEN [facility] Comment on above: Performed By: #### P TT #### [facility] [address] [place] [address] Dr. Hugh Landis RBC 0-2 Normal 0-2 [facility] Comment on above: Performed By: #### P TT #### [facility] [address] [place] [address] Dr. Hugh Landis WBC 0-2 Abnormal NONE SEEN [facility] Comment on above: Performed By: #### P TT #### [facility] [address] [place] [address] Dr. Hugh Landis MRSA NARES #1on 03-08-2022 MRSA NARES #1 Culture Observations : NO GROWTH OF MRSA AT 48 HOURS. Normal [facility] Comment on above: Performed By: #### B MP #### [facility] [address] [place] [address] Dr. Hugh Landis PROF CHEM 8 (BAS METB)on Anion gap [Moles/Vol] 9.9 mmol/L Normal [facility] Comment on above: Performed By: #### C MP, LIPID, TSH #### [facility] [address] [place] [address] Dr. Hugh Landis Calcium [Mass/Vol] 9.4 mg/dL Normal 8.5-10.1 [facility] Comment on above: Performed By: #### C MP, LIPID, TSH #### [facility] [address] [address] [address] Hugh Landis Chloride [Moles/Vol] 103 mmol/L Normal 98-107 [facility] Comment on above: Performed By: #### C MP, LIPID, TSH #### [facility] [address] [place] [address] Dr. Hugh Landis CO2 [Moles/Vol] 31.6 mmol/L Normal 21.0-32.0 [facility] Comment on above: Performed By: #### C MP, LIPID, TSH #### [facility] [address] [place] [address] Dr. Hugh Landis Creatinine [Mass/Vol] 1.25 mg/dL Normal 0.70-1.30 [facility] Comment on above: Performed By: #### C MP, LIPID, TSH #### [facility] [address] [place] [address] Dr. Hugh Landis EGFR-AF ESTONIAN >60 Normal >=60 [facility] Comment on above: Performed By: #### C MP, LIPID, TSH #### [facility] [address] [place] [address] Dr. Hugh Landis EGFR-NON AF ESTONIAN 59 mL/min/1.73m2 Critically low >=60 [facility] Comment on above: Performed By: #### C MP, LIPID, TSH #### [facility] [address] [place] [address] Dr. Hugh Landis Glucose [Mass/Vol] 110 mg/dL Critically high 74-106 [facility] Comment on above: Performed By: #### C MP, LIPID, TSH #### [facility] [address] [place] [address] Dr. Hugh Landis Potassium [Moles/Vol] 3.5 mmol/L Normal 3.5-5.1 [facility] Comment on above: Performed By: #### C MP, LIPID, TSH #### [facility] [address] [place] [address] Dr. Hugh Landis Sodium [Moles/Vol] 141 mmol/L Normal 136-145 [facility] Comment on above: Performed By: #### C MP, LIPID, TSH #### [facility] [address] [place] [address] Dr. Hugh Landis Urea nitrogen [Mass/Vol] 27.0 mg/dL Critically high 7.0-18.0 [facility] Comment on above: Performed By: #### C MP, LIPID, TSH #### [facility] [address] [address] [address] Hugh Landis Urea nitrogen/Creatinine [Mass ratio] 21.6 mg/mg Normal [facility] Comment on above: Performed By: #### C MP, LIPID, TSH #### [facility] [address] [place] [address] Dr. Hugh Landis PTTon 03-08-2022 aPTT Coag (Bld) [Time] 27.0 s Normal 22.3-36.2 [facility] Comment on above: Performed By: #### P TT #### [facility] [address] [place] [address] Dr. Hugh Landis INSULINon 01-25-2022 Insulin 11.1 uIU/mL Normal 2.6-24.9 [facility] Comment on above: Performed By: #### U TOMAS, TSH, CMP, LIPID, T7 #### [facility] [address] [place] [address] Dr. Hugh Landis CBC AUTO DIFFon 01-24-2022 BASO # 0.1 103/ul Normal 0.0-0.1 [facility] Comment on above: Performed By: #### C MP, LIPID, TSH #### [facility] [address] [place] [address] Dr. Hugh Landis Basophils/100 WBC (Bld) 1.3 % Normal 0.2-2.0 [facility] Comment on above: Performed By: #### C MP, LIPID, TSH #### [facility] [address] [place] [address] Dr. Hugh Landis EO # 0.2 103/ul Normal 0.0-0.7 [facility] Comment on above: Performed By: #### C MP, LIPID, TSH #### [facility] [address] [place] [address] Dr. Hugh Landis Eosinophils/100 WBC (Bld) 4.7 % Normal 0.9-7.0 [facility] Comment on above: Performed By: #### C MP, LIPID, TSH #### [facility] [address] [place] [address] Dr. Hugh Landis Erythrocyte distribution width (RBC) [Ratio] 12.6 % Normal 11.0-15.0 [facility] Comment on above: Performed By: #### C MP, LIPID, TSH #### [facility] [address] [place] [address] Dr. Hugh Landis Hematocrit (Bld) [Volume fraction] 39.1 % Critically low 42.0-54.0 [facility] Comment on above: Performed By: #### C MP, LIPID, TSH #### [facility] [address] [place] [address] Dr. Hugh Landis Hemoglobin (Bld) [Mass/Vol] 12.4 g/dL Critically low 14.0-18.0 [facility] Comment on above: Performed By: #### C MP, LIPID, TSH #### [facility] [address] [place] [address] Dr. Hugh Landis IG # 0.01 10e3/ul Normal 0.00-0.03 [facility] Comment on above: Performed By: #### C MP, LIPID, TSH #### [facility] [address] [place] [address] Dr. Hugh Landis IG % 0.2 % Normal 0.0-0.5 [facility] Comment on above: Performed By: #### C MP, LIPID, TSH #### [facility] [address] [address] [address] Hugh Landis LYMPH # 0.9 103/ul Critically low 1.2-3.8 [facility] Comment on above: Performed By: #### C MP, LIPID, TSH #### [facility] [address] [address] [address] Hugh Landis Lymphocytes/100 WBC (Bld) 19.4 % Critically low 20.5-60.0 [facility] Comment on above: Performed By: #### C MP, LIPID, TSH #### [facility] [address] [address] [address] Hugh Landis MANUAL DIFF REQ NO Normal [facility] Comment on above: Performed By: #### C MP, LIPID, TSH #### [facility] [address] [place] [address] Dr. Hugh Landis MCH (RBC) [Entitic mass] 29.2 pg Normal 25.9-34.0 [facility] Comment on above: Performed By: #### C MP, LIPID, TSH #### [facility] [address] [place] [address] Dr. Hugh Landis MCHC (RBC) [Mass/Vol] 31.7 g/dL Normal 29.9-35.2 [facility] Comment on above: Performed By: #### C MP, LIPID, TSH #### [facility] [address] [address] [address] Hugh Landis MCV (RBC) [Entitic vol] 92.0 fL Normal 80.0-94.0 [facility] Comment on above: Performed By: #### C MP, LIPID, TSH #### [facility] [address] [address] [address] Hugh Landis MONO # 0.5 103/ul Normal 0.3-0.8 [facility] Comment on above: Performed By: #### C MP, LIPID, TSH #### [facility] [address] [address] [address] Hugh Landis Monocytes/100 WBC (Bld) 9.6 % Normal 1.7-12.0 [facility] Comment on above: Performed By: #### C MP, LIPID, TSH #### [facility] [address] [address] [address] Hugh Landis NEUT # 3.0 103/ul Normal 1.4-6.5 [facility] Comment on above: Performed By: #### C MP, LIPID, TSH #### [facility] [address] [place] [address] Dr. Hugh Landis Neutrophils/100 WBC (Bld) 64.8 % Normal 43.0-75.0 [facility] Comment on above: Performed By: #### C MP, LIPID, TSH #### [facility] [address] [place] [address] Dr. Hugh Landis Platelet mean volume (Bld) [Entitic vol] 9.4 fL Critically low 9.5-13.5 [facility] Comment on above: Performed By: #### C MP, LIPID, TSH #### [facility] [address] [place] [address] Dr. Hugh Landis PLT 232 103/ul Normal 150-450 [facility] Comment on above: Performed By: #### C MP, LIPID, TSH #### [facility] [address] [place] [address] Dr. Hugh Landis RBC 4.25 106/ul Critically low 4.70-6.10 [facility] Comment on above: Performed By: #### C MP, LIPID, TSH #### [facility] [address] [place] [address] Dr. Hugh Landis WBC 4.7 103/ul Normal 4.0-11.0 [facility] Comment on above: Performed By: #### C MP, LIPID, TSH #### [facility] [address] [place] [address] Dr. Hugh Landis FREE THYROXINE INDEX T7on -2021 FTI 2.65 Normal 1.30-4.50 [facility] Comment on above: Performed By: #### B MP #### [facility] [address] [place] [address] Dr. Hugh Landis T3U 34.0 % Normal 33.0-40.0 [facility] Comment on above: Performed By: #### B MP #### [facility] [address] [address] [address] Hugh Landis T4 [Mass/Vol] 7.80 ug/dL Normal 4.50-12.10 [facility] Comment on above: Performed By: #### B MP #### [facility] [address] [address] [address] Hugh Landis GLYCOHEMOGLOBIN A1Con 2021 ADA RECOMMENDATION SEE BELOW Normal [facility] Comment on above: Result Comment: ADA RECOMMENDED LIMIT 4.0 - 6.0 ADA THERAPEUTIC TARGET < 7.0 ACTION SUGGESTED > 7.0 Performed By: #### C MP, LIPID, TSH #### [facility] [address] [place] [address] Dr. Hugh Landis Glucose [Mass/Vol] 123 mg/dL Normal [facility] Comment on above: Performed By: #### C MP, LIPID, TSH #### [facility] [address] [place] [address] Dr. Hugh Landis HbA1c (Bld) [Mass fraction] 5.9 % Normal 4.5-6.2 [facility] Comment on above: Performed By: #### C MP, LIPID, TSH #### [facility] [address] [place] [address] Dr. Hugh Landis LIPID PROFILEon 01-24-2022 CHOL-HDL RATIO NORM SEE BELOW Normal [facility] Comment on above: Result Comment: 3.3 - 4.4 LOW RISK 4.4 - 7.1 AVERAGE RISK 7.1 - 11.0 MODERATE RISK >11.0 HIGH RISK Performed By: #### U TOMAS, TSH, CMP, LIPID, T7 #### [facility] [address] [place] [address] Dr. Hugh Landis Cholesterol [Mass/Vol] 179 mg/dL Normal <=200 [facility] Comment on above: Performed By: #### U TOMAS, TSH, CMP, LIPID, T7 #### [facility] [address] [place] [address] Dr. Hugh Landis Cholesterol in HDL [Mass/Vol] 46 mg/dL Normal 40-60 [facility] Comment on above: Performed By: #### U TOMAS, TSH, CMP, LIPID, T7 #### [facility] [address] [address] [address] Hugh Landis Cholesterol in LDL [Mass/Vol] 100.4 mg/dL Normal [facility] Comment on above: Performed By: #### U TOMAS, TSH, CMP, LIPID, T7 #### [facility] [address] [address] [address] Hugh Landis Cholesterol.total/Ch olesterol in HDL [Mass ratio] 3.9 {ratio} Normal [facility] Comment on above: Performed By: #### U TOMAS, TSH, CMP, LIPID, T7 #### [facility] [address] [address] [address] Hugh Landis HDL NORMAL > or = 60 mg/dl - LO W CARDIOVASCULAR RISK <40 mg/dl - HIGH CARDIOVASCULAR RISK Normal [facility] Comment on above: Performed By: #### U TOMAS, TSH, CMP, LIPID, T7 #### [facility] [address] [address] [address] Hugh Landis LDL CALC NORMAL SEE BELOW Normal [facility] Comment on above: Result Comment: <100 mg/dl OPTIMAL 100 - 129 mg/dl NEAR OR ABOVE OPTIMAL 130 - 159 mg/dl BORDERLINE HIGH 160 - 189 mg/dl HIGH >190 mg/dl VERY HIGH Performed By: #### U TOMAS, TSH, CMP, LIPID, T7 #### [facility] [address] [address] [address] Hugh Landis Triglyceride [Mass/Vol] 163 mg/dL Critically high <=150 [facility] Comment on above: Performed By: #### U TOMAS, TSH, CMP, LIPID, T7 #### [facility] [address] [address] [address] Hugh Landis VLDL CALC 32.6 mg/dL Normal [facility] Comment on above: Performed By: #### U TOMAS, TSH, CMP, LIPID, T7 #### [facility] [address] [place] [address] Dr. Hugh Landis PROF 14(COMP METB)on 022 Albumin [Mass/Vol] 3.6 g/dL Normal 3.4-5.0 [facility] Comment on above: Performed By: #### U TOMAS, TSH, CMP, LIPID, T7 #### [facility] [address] [place] [address] Dr. Hugh Landis Albumin/Globulin [Mass ratio] 0.9 {ratio} Normal [facility] Comment on above: Performed By: #### U TOMAS, TSH, CMP, LIPID, T7 #### [facility] [address] [place] [address] Dr. Hugh Landis ALP [Catalytic activity/Vol] 81 U/L Normal 46-116 [facility] Comment on above: Performed By: #### U TOMAS, TSH, CMP, LIPID, T7 #### [facility] [address] [place] [address] Dr. Hugh Landis ALT [Catalytic activity/Vol] 19 U/L Normal 16-63 [facility] Comment on above: Performed By: #### U TOMAS, TSH, CMP, LIPID, T7 #### [facility] [address] [place] [address] Dr. Hugh Landis Anion gap [Moles/Vol] 13.4 mmol/L Normal [facility] Comment on above: Performed By: #### U TOMAS, TSH, CMP, LIPID, T7 #### [facility] [address] [place] [address] Dr. Hugh Landis AST [Catalytic activity/Vol] 16 U/L Normal 15-37 [facility] Comment on above: Performed By: #### U TOMAS, TSH, CMP, LIPID, T7 #### [facility] [address] [place] [address] Dr. Hugh Landis Bilirubin [Mass/Vol] 0.5 mg/dL Normal 0.2-1.0 [facility] Comment on above: Performed By: #### U TOMAS, TSH, CMP, LIPID, T7 #### [facility] [address] [place] [address] Dr. Hugh Landis Calcium [Mass/Vol] 9.7 mg/dL Normal 8.5-10.1 [facility] Comment on above: Performed By: #### U TOMAS, TSH, CMP, LIPID, T7 #### [facility] [address] [address] [address] Hugh Landis Chloride [Moles/Vol] 105 mmol/L Normal 98-107 [facility] Comment on above: Performed By: #### U TOMAS, TSH, CMP, LIPID, T7 #### [facility] [address] [address] [address] Hugh Landis CO2 [Moles/Vol] 27.4 mmol/L Normal 21.0-32.0 [facility] Comment on above: Performed By: #### U TOMAS, TSH, CMP, LIPID, T7 #### [facility] [address] [address] [address] Hugh Landis Creatinine [Mass/Vol] 1.37 mg/dL Critically high 0.70-1.30 [facility] Comment on above: Performed By: #### U TOMAS, TSH, CMP, LIPID, T7 #### [facility] [address] [address] [address] Hugh Landis EGFR-AF ESTONIAN >60 Normal >=60 [facility] Comment on above: Performed By: #### U TOMAS, TSH, CMP, LIPID, T7 #### [facility] [address] [address] [address] Hugh Landis EGFR-NON AF ESTONIAN 53 mL/min/1.73m2 Critically low >=60 [facility] Comment on above: Performed By: #### U TOMAS, TSH, CMP, LIPID, T7 #### [facility] [address] [address] [address] Hugh Landis Globulin (S) [Mass/Vol] 4.0 g/dL Normal [facility] Comment on above: Performed By: #### U TOMAS, TSH, CMP, LIPID, T7 #### [facility] [address] [address] [address] Hugh Landis Glucose [Mass/Vol] 113 mg/dL Critically high 74-106 [facility] Comment on above: Performed By: #### U TOMAS, TSH, CMP, LIPID, T7 #### [facility] [address] [address] [address] Hugh Landis Potassium [Moles/Vol] 3.8 mmol/L Normal 3.5-5.1 [facility] Comment on above: Performed By: #### U TOMAS, TSH, CMP, LIPID, T7 #### [facility] [address] [address] [address] Hugh Landis Protein [Mass/Vol] 7.6 g/dL Normal 6.4-8.2 [facility] Comment on above: Performed By: #### U TOMAS, TSH, CMP, LIPID, T7 #### [facility] [address] [place] [address] Dr. Hugh Landis Sodium [Moles/Vol] 142 mmol/L Normal 136-145 [facility] Comment on above: Performed By: #### U TOMAS, TSH, CMP, LIPID, T7 #### [facility] [address] [place] [address] Dr. Hugh Landis Urea nitrogen [Mass/Vol] 21.0 mg/dL Critically high 7.0-18.0 [facility] Comment on above: Performed By: #### U TOMAS, TSH, CMP, LIPID, T7 #### [facility] [address] [place] [address] Dr. Hugh Landis Urea nitrogen/Creatinine [Mass ratio] 15.3 mg/mg Normal [facility] Comment on above: Performed By: #### U TOMAS, TSH, CMP, LIPID, T7 #### [facility] [address] [place] [address] Dr. Hugh Landis TSHon 01-24-2022 TSH 0.663 uIU/mL Normal 0.358-3.740 [facility] Comment on above: Performed By: #### U TOMAS, TSH, CMP, LIPID, T7 #### [facility] [address] [place] [address] Dr. Hugh Landis URIC ACID SERUMon 01-24-2022 Urate [Mass/Vol] 6.9 mg/dL Normal 3.5-7.2 [facility] Comment on above: Performed By: #### B MP #### [facility] [address] [place] [address] Dr. Hugh Landis VITAMIN D 25 OHon 01-24-2022 VIT D 25-OH 37.0 ng/mL Normal [facility] Comment on above: Performed By: #### P TT #### [facility] [address] [place] [address] Dr. Hugh Landis VIT D RANGES SEE BELOW Normal [facility] Comment on above: Result Comment: <20 ng/mL Vit D deficient 20 - <30 ng/mL Vit D insufficient 30 - 100 ng/mL Vit D sufficient >100 ng/mL Potential Toxicity Performed By: #### P TT #### [facility] [address] [place] [address] Dr. Hugh Landis US KIDNEYSon 12-21-2021 US [...] OBIE TSE Date: 2021-12-21 17:34 Normal [facility] XR ABD FLAT UP_PA Barrett 12-21 [...] by: AUSTIN LARIOS Date: 2021-12-21 18:13 Normal [facility] Urine culture routineOrdered By: Estephanie Lowry on 12-17-2021 Bacteria identified Cx Nom (U) No Growth 2 Days [facility] Chlamydia trachomatis DNA [P resence] in Specimen by MUKUL with probe detectionOrdered By: Estephanie Lowry on 12-15-2021 C. trachomatis DNA MUKUL+probe Ql (Unsp spec) Negative Negative [facility] Chlamydia/GC/Trich NAAon Chlamydia Trachomotis, MUKUL Negative Normal Negative [facility] Comment on above: Order Comment: Reaso n for Exam Dysuria Performed By: #### G CCHLAMTRI #### [facility] , #### CUU #### [facility] [address] Neisseria Gonorrhoeae, MUKUL Negative Normal Negative [facility] Comment on above: Order Comment: Reaso n for Exam Dysuria Performed By: #### G CCHLAMTRI #### [facility] , #### CUU #### [facility] [address] [place] [address] [place] Trichomonas MUKUL Negative Normal Negative [facility] Comment on above: Order Comment: Reaso n for Exam Dysuria Result Comment: Perf ormed at: =G - [facility] [address] [id number] Gear Finisher: Shoshana Camargo MD, Phone: [phone] PERFORMED BY: [address] [id number] PATHOLOGIST AEROPHYSICS ENGINEER SABRA SAUNDERS M.D. Performed By: #### G CCHLAMTRI #### [facility] , #### CUU #### [facility] [address] [id number] [facility] Chlamydia/GC/Trich MUKUL Negative Negative [facility] Other Neisseria gonorrhoeae DNA [P resence] in Specimen by MUKUL with probe detectionOrdered By: Estephanie Lowry on 12-15-2021 N. gonorrhoeae DNA MUKUL+probe Ql (Unsp spec) Negative Negative [facility] Trichomonas vaginalis DNA [P resence] in Specimen by MUKUL with probe detectionOrdered By: Estephanie Lowry on 12-15-2021 T. vaginalis DNA MUKUL+probe Ql (Unsp spec) Negative Negative [facility] Comment on above: Performed at: =[address] [id number] Director: Shoshana Camargo MD, Phone: [phone] Urinalysis - AUTOMATEDon Appearance (U) clear [employer] Other Bilirubin Ql (U) Negative [facility] Other Color (U) orange [facility] Other Glucose Ql (U) Negative [employer] [facility] Other Hemoglobin Ql (U) moderate [employer] Other Ketones Ql (U) Negative [employer] [facility] Other Leukocyte esterase Test strip Ql (U) Negative [facility] Other Nitrite Ql (U) Positive [employer] Other pH (U) 5.5 [pH] [facility] Other Protein Ql (U) Negative [employer] Other Specific gravity (U) [Rel density] 1.015 [facility] Other Urobilinogen (U) [Mass/Vol] 0.2 mg/dL [facility] Other Urinalysis - AUTOMATED [facility] Other Urine Cultureon 12-15-2021 Bacteria identified Cx Nom (U) Reason for Exam Dysuria Urine No Growth 2 Days PERFORMED BY: [place] [address] PATHOLOGIST AEROPHYSICS ENGINEER SABRA SAUNDERS M.D. Normal [facility] Comment on above: Performed By: #### G CCHLAMTRI #### [facility] , #### CUU #### [address] Bacteria identified Cx Nom (U) [email or web address] [facility] [employer] Other CULTURE URINEon 11-24-2021 CULTURE URINE Culture Observations : NO GROWTH. Normal [facility] Comment on above: Performed By: #### B MP #### [facility] [address] [address] [address] Hugh Landis PROTEIN ELECTROPHERESIS URIN E RANDOMon 11-17-2021 Albumin, U 33.4 % Normal [facility] Comment on above: Performed By: #### C MP, LIPID, TSH #### [facility] [address] [address] [address] Hugh Landis Alpha-1 Globulin U 4.7 % Normal [facility] Comment on above: Performed By: #### C MP, LIPID, TSH #### [facility] [address] [address] [address] Hugh Landis Alpha-2 Glubulin U 18.6 % Normal [facility] Comment on above: Performed By: #### C MP, LIPID, TSH #### [facility] [address] [address] [address] Hugh Landis Beta Globulin, U 19.9 % Normal [facility] Comment on above: Performed By: #### C MP, LIPID, TSH #### [facility] [address] [address] [address] Hugh Landis Gamma Globulin U 23.4 % Normal [facility] Comment on above: Performed By: #### C MP, LIPID, TSH #### [facility] [address] [address] [address] Hugh Landis M-Tariq, % Not Observed Normal Not Observed [facility] Comment on above: Performed By: #### C MP, LIPID, TSH #### [facility] [address] [address] [address] Hugh Landis PDF . Normal [facility] Comment on above: Performed By: #### C MP, LIPID, TSH #### [facility] [address] [address] [address] Hugh Landis Please note: Comment Normal [facility] Comment on above: Result Comment: Prot ein electrophoresis scan will follow via computer, mail, or sales and catering coordinator delivery. Performed By: #### C MP, LIPID, TSH #### [facility] [address] [address] [address] Hugh Landis Protein (U) [Mass/Vol] 4.9 mg/dL Normal Not Estab. [facility] Comment on above: Performed By: #### C MP, LIPID, TSH #### [facility] [address] [address] [address] Hugh Landis IMMUNOFIXATION(PRINCE),PROTEIN ELEC(PE),FREon 11-16-2021 Albumin [Mass/Vol] 3.4 g/dL Normal 2.9-4.4 [facility] Comment on above: Performed By: #### C MP, LIPID, TSH #### [facility] [address] [address] [address] Hugh Landis Albumin/Globulin [Mass ratio] 1.0 {ratio} Normal 0.7-1.7 [facility] Comment on above: Performed By: #### C MP, LIPID, TSH #### [facility] [address] [address] [address] Hugh Landis Vyfke-4-Xgubpbhf 0.2 g/dL Normal 0.0-0.4 [facility] Comment on above: Performed By: #### C MP, LIPID, TSH #### [facility] [address] [place] [address] Dr. Hugh Landis Lqgaz-7-Awmtlosr 1.1 g/dL Critically high 0.4-1.0 [facility] Comment on above: Performed By: #### C MP, LIPID, TSH #### [facility] [address] [place] [address] Dr. Hugh Landis Beta Globulin 1.0 g/dL Normal 0.7-1.3 [facility] Comment on above: Performed By: #### C MP, LIPID, TSH #### [facility] [address] [place] [address] Dr. Hugh Landis Free [place] Lt Chains,S 35.7 mg/L Critically high 3.3-19.4 [facility] Comment on above: Performed By: #### C MP, LIPID, TSH #### [facility] [address] [place] [address] Dr. Hugh Landis Free Lambda Lt Chains,S 21.1 mg/L Normal 5.7-26.3 [facility] Comment on above: Performed By: #### C MP, LIPID, TSH #### [facility] [address] [place] [address] Dr. Hugh Landis Gamma Globulin 1.2 g/dL Normal 0.4-1.8 [facility] Comment on above: Performed By: #### C MP, LIPID, TSH #### [facility] [address] [place] [address] Dr. Hugh Landis Globulin (S) [Mass/Vol] 3.5 g/dL Normal 2.2-3.9 [facility] Comment on above: Performed By: #### C MP, LIPID, TSH #### [facility] [address] [place] [address] Dr. Hugh Landis Immunofixation Result, Serum Comment Normal [facility] Comment on above: Result Comment: No m onoclonality detected. Performed By: #### C MP, LIPID, TSH #### [facility] [address] [address] [address] Hugh Landis Immunoglobulin A, Qn, Serum 228 mg/dL Normal 90-386 [facility] Comment on above: Performed By: #### C MP, LIPID, TSH #### [facility] [address] [address] [address] Hugh Landis Immunoglobulin G, Qn, Serum 1221 mg/dL Normal 603-1613 [facility] Comment on above: Performed By: #### C MP, LIPID, TSH #### [facility] [address] [address] [address] Hugh Landis Immunoglobulin M, Qn, Serum 79 mg/dL Normal 20-172 [facility] Comment on above: Performed By: #### C MP, LIPID, TSH #### [facility] [address] [place] [address] Dr. Hugh Landis [place]/Lambda Ratio, S 1.69 Critically high 0.26-1.65 [facility] Comment on above: Performed By: #### C MP, LIPID, TSH #### [facility] [address] [address] [address] Hugh Landis M-Tariq Not Observed Normal Not Observed [facility] Comment on above: Performed By: #### C MP, LIPID, TSH #### [facility] [address] [address] [address] Hugh Landis PDF . Normal [facility] Comment on above: Performed By: #### C MP, LIPID, TSH #### [facility] [address] [address] [address] Hugh Landis Please note: Comment Normal [facility] Comment on above: Result Comment: Prot ein electrophoresis scan will follow via computer, mail, or sales and catering coordinator delivery. Performed By: #### C MP, LIPID, TSH #### [facility] [address] [place] [address] Dr. Hugh Landis Protein [Mass/Vol] 6.9 g/dL Normal 6.0-8.5 [facility] Comment on above: Performed By: #### C MP, LIPID, TSH #### [facility] [address] [address] [address] Hugh Landis PROTEIN AND CREA RANDOM UR R ATIOon 11-16-2021 Creatinine, Urine 54.8 mg/dL Normal Not Estab. [facility] Comment on above: Performed By: #### C MP, LIPID, TSH #### [facility] [address] [place] [address] Dr. Hugh Landis Protein (U) [Mass/Vol] 4.1 mg/dL Normal Not Estab. [facility] Comment on above: Performed By: #### C MP, LIPID, TSH #### [facility] [address] [address] [address] Hugh Landis Protein/Creat Ratio 75 mg/g creat Normal 0-[address] [facility] Comment on above: Performed By: #### C MP, LIPID, TSH #### [facility] [address] [place] [address] Dr. Hugh Landis PTH INTACTon 11-15-2021 PTH, Intact 39 pg/mL Normal 15-65 [facility] Comment on above: Performed By: #### P T #### [facility] [address] [place] [address] Dr. Hugh Landis UA RANDOM W/MICROSCOPICon BACTERIA NONE SEEN Normal NONE SEEN [facility] Comment on above: Performed By: #### P TT #### [facility] [address] [place] [address] Dr. Hugh Landis Bilirubin Ql (U) Negative Normal NEGATIVE [facility] Comment on above: Performed By: #### P TT #### [facility] [address] [place] [address] Dr. Hugh Landis CAST NONE SEEN Normal NONE SEEN [facility] Comment on above: Performed By: #### P TT #### [facility] [address] [place] [address] Dr. Hugh Landis Clarity (U) CLEAR Normal CLEAR [facility] Comment on above: Performed By: #### P TT #### [facility] [address] [place] [address] Dr. Hugh Landis Color (U) LT. YELLOW Normal YELLOW [facility] Comment on above: Performed By: #### P TT #### [facility] [address] [place] [address] Dr. Hugh Landis Crystals LM Nom (Urine sed) NONE SEEN Normal NONE SEEN [facility] Comment on above: Performed By: #### P TT #### [facility] [address] [place] [address] Dr. Hugh Landis Epithelial cells LM Ql (Urine sed) NONE SEEN Normal NONE SEEN /RARE [facility] Comment on above: Performed By: #### P TT #### [facility] [address] [place] [address] Dr. Hugh Landis Glucose Ql (U) Negative Normal NEGATIVE [facility] Comment on above: Performed By: #### P TT #### [facility] [address] [place] [address] Dr. Hugh Landis Hemoglobin Ql (U) MODERATE Abnormal NEGATIVE [facility] Comment on above: Performed By: #### P TT #### [facility] [address] [place] [address] Dr. Hugh Landis Ketones Ql (U) Negative Normal NEGATIVE [facility] Comment on above: Performed By: #### P TT #### [facility] [address] [place] [address] Dr. Hugh Landis LEUKOCYTES Negative Normal NEGATIVE [facility] Comment on above: Performed By: #### P TT #### [facility] [address] [place] [address] Dr. Hugh Landis MUCOUS NONE SEEN Normal NONE SEEN [facility] Comment on above: Performed By: #### P TT #### [facility] [address] [place] [address] Dr. Hugh Landis Nitrite Ql (U) Negative Normal NEGATIVE [facility] Comment on above: Performed By: #### P TT #### [facility] [address] [place] [address] Dr. Hugh Landis pH (U) 5.5 [pH] Normal 5-9 [facility] Comment on above: Performed By: #### P TT #### [facility] [address] [place] [address] Dr. Huhg Landis RBC 5-10 Abnormal 0-2 [facility] Comment on above: Performed By: #### P TT #### [facility] [address] [place] [address] Dr. Hugh Landis SPEC GRAVITY 1.010 Normal 1.005-<=1.02 5 [facility] Comment on above: Performed By: #### P TT #### [facility] [address] [place] [address] Dr. Hugh Landis UA PROTEIN Negative Normal NEGATIVE/ TRACE [facility] Comment on above: Performed By: #### P TT #### [facility] [address] [place] [address] Dr. Hugh Landis Urobilinogen Qn (U) 0.2 {Dahiana'U}/dL Normal 0.2 - 1. 0 [facility] Comment on above: Performed By: #### P TT #### [facility] [address] [place] [address] Dr. Hugh Landis WBC 0-2 Abnormal NONE SEEN [facility] Comment on above: Performed By: #### P TT #### [facility] [address] [place] [address] Dr. Hugh Landis URINE T PROTEIN CREAT RATIOo n 11-15-2021 Protein (U) [Mass/Vol] 10.0 mg/dL Normal <=12.0 [facility] Comment on above: Performed By: #### B MP #### [facility] [address] [place] [address] Dr. Hugh Landis UR PROT CREAT RAT 0.18 Normal [facility] Comment on above: Performed By: #### B MP #### [facility] [address] [place] [address] Dr. Hugh Landis URINE CREAT 57.11 mg/dL Normal 20.00-300.00 [facility] Comment on above: Performed By: #### B MP #### [facility] [address] [place] [address] Dr. Hugh Landis FERRITINon 11-14-2021 Ferritin [Mass/Vol] 95.0 ng/mL Normal 26.0-388.0 [facility] Comment on above: Performed By: #### C MP, LIPID, TSH #### [facility] [address] [place] [address] Dr. Hugh Landis HEMOGRAM AND PLATELon 2021 Hematocrit (Bld) [Volume fraction] 35.7 % Critically low 42.0-54.0 [facility] Comment on above: Performed By: #### U TOMAS, TSH, CMP, LIPID, T7 #### [facility] [address] [place] [address] Dr. Hugh Landis Hemoglobin (Bld) [Mass/Vol] 11.5 g/dL Critically low 14.0-18.0 [facility] Comment on above: Performed By: #### U TOMAS, TSH, CMP, LIPID, T7 #### [facility] [address] [place] [address] Dr. Hugh Landis MCH (RBC) [Entitic mass] 30.3 pg Normal 25.9-34.0 [facility] Comment on above: Performed By: #### U TOMAS, TSH, CMP, LIPID, T7 #### [facility] [address] [place] [address] Dr. Hugh Landis MCHC (RBC) [Mass/Vol] 32.2 g/dL Normal 29.9-35.2 [facility] Comment on above: Performed By: #### U TOMAS, TSH, CMP, LIPID, T7 #### [facility] [address] [place] [address] Dr. Hugh Landis MCV (RBC) [Entitic vol] 93.9 fL Normal 80.0-94.0 [facility] Comment on above: Performed By: #### U TOMAS, TSH, CMP, LIPID, T7 #### [facility] [address] [place] [address] Dr. Hugh Landis PLT 254 103/ul Normal 150-450 [facility] Comment on above: Performed By: #### U TOMAS, TSH, CMP, LIPID, T7 #### [facility] [address] [address] [address] Hugh Landis RBC 3.80 106/ul Critically low 4.70-6.10 [facility] Comment on above: Performed By: #### U TOMAS, TSH, CMP, LIPID, T7 #### [facility] [address] [address] [address] Hugh Landis WBC 6.4 103/ul Normal 4.0-11.0 [facility] Comment on above: Performed By: #### U TOMAS, TSH, CMP, LIPID, T7 #### [facility] [address] [address] [address] Hugh Landis IRON AND TIBCon 11-14-2021 % SATURATION 27.6 % Normal [facility] Comment on above: Performed By: #### C MP, LIPID, TSH #### [facility] [address] [place] [address] Dr. Hugh Landis Iron [Mass/Vol] 68.0 ug/dL Normal 65.0-175.0 [facility] Comment on above: Performed By: #### C MP, LIPID, TSH #### [facility] [address] [address] [address] Hugh Landis TIBC DIRECT 246.0 ug/dL Critically low 250.0-450.0 [facility] Comment on above: Performed By: #### C MP, LIPID, TSH #### [facility] [address] [place] [address] Dr. Hugh Landis MAGNESIUMon 11-14-2021 Magnesium [Mass/Vol] 1.8 mg/dL Normal 1.8-2.4 [facility] Comment on above: Performed By: #### U TOMAS, TSH, CMP, LIPID, T7 #### [facility] [address] [address] [address] Hugh Landis RENAL FUNCTION PANELon 11-14 Albumin [Mass/Vol] 3.4 g/dL Normal 3.4-5.0 [facility] Comment on above: Performed By: #### U TOMAS, TSH, CMP, LIPID, T7 #### [facility] [address] [place] [address] Dr. Hugh Landis Calcium [Mass/Vol] 9.1 mg/dL Normal 8.5-10.1 [facility] Comment on above: Performed By: #### U TOMAS, TSH, CMP, LIPID, T7 #### [facility] [address] [address] [address] Hugh Landis Chloride [Moles/Vol] 105 mmol/L Normal 98-107 [facility] Comment on above: Performed By: #### U TOMAS, TSH, CMP, LIPID, T7 #### [facility] [address] [address] [address] Hugh Landis CO2 [Moles/Vol] 29.2 mmol/L Normal 21.0-32.0 [facility] Comment on above: Performed By: #### U TOMAS, TSH, CMP, LIPID, T7 #### [facility] [address] [place] [address] Dr. Hugh Landis Creatinine [Mass/Vol] 1.62 mg/dL Critically high 0.70-1.30 [facility] Comment on above: Performed By: #### U TOMAS, TSH, CMP, LIPID, T7 #### [facility] [address] [address] [address] Hugh Landis EGFR-AF ESTONIAN 53 mL/min/1.73m2 Critically low >=60 [facility] Comment on above: Performed By: #### U TOMAS, TSH, CMP, LIPID, T7 #### [facility] [address] [address] [address] Hugh Landis EGFR-NON AF ESTONIAN 44 mL/min/1.73m2 Critically low >=60 [facility] Comment on above: Performed By: #### U TOMAS, TSH, CMP, LIPID, T7 #### [facility] [address] [address] [address] Hugh Landis Glucose [Mass/Vol] 136 mg/dL Critically high 74-106 [facility] Comment on above: Performed By: #### U TOMAS, TSH, CMP, LIPID, T7 #### [facility] [address] [address] [address] Hugh Landis Phosphate [Mass/Vol] 2.8 mg/dL Normal 2.6-4.7 [facility] Comment on above: Performed By: #### U TOMAS, TSH, CMP, LIPID, T7 #### [facility] [address] [place] [address] Dr. Hugh Landis Potassium [Moles/Vol] 3.1 mmol/L Critically low 3.5-5.1 [facility] Comment on above: Performed By: #### U TOMAS, TSH, CMP, LIPID, T7 #### [facility] [address] [place] [address] Dr. Hugh Landis Sodium [Moles/Vol] 141 mmol/L Normal 136-145 [facility] Comment on above: Performed By: #### U TOMAS, TSH, CMP, LIPID, T7 #### [facility] [address] [place] [address] Dr. Hugh Landis Urea nitrogen [Mass/Vol] 19.0 mg/dL Critically high 7.0-18.0 [facility] Comment on above: Performed By: #### U TOMAS, TSH, CMP, LIPID, T7 #### [facility] [address] [place] [address] Dr. Hugh Landis URIC ACID SERUMon 11-14-2021 Urate [Mass/Vol] 8.7 mg/dL Critically high 3.5-7.2 [facility] Comment on above: Performed By: #### U TOMAS, TSH, CMP, LIPID, T7 #### [facility] [address] [place] [address] Dr. Hugh Landis VIT B12 AND FOLATEon 022 Cobalamin (Vitamin B12) [Mass/Vol] 373.0 pg/mL Normal 193.0-986.0 [facility] Comment on above: Performed By: #### U TOMAS, TSH, CMP, LIPID, T7 #### [facility] [address] [place] [address] Dr. Hugh Landis FOLATE 14.00 ng/mL Normal 8.60-58.90 [facility] Comment on above: Performed By: #### U TOMAS, TSH, CMP, LIPID, T7 #### [facility] [address] [place], [place] [address] Dr. Hugh Landis VITAMIN D 25 OHon 11-14-2021 VIT D 25-OH 33.8 ng/mL Normal [facility] Comment on above: Performed By: #### U TOMAS, TSH, CMP, LIPID, T7 #### [facility] [address] [place], [place] [address] Dr. Hugh Landis VIT D RANGES SEE BELOW Normal [facility] Comment on above: Result Comment: <20 ng/mL Vit D deficient 20 - <30 ng/mL Vit D insufficient 30 - 100 ng/mL Vit D sufficient >100 ng/mL Potential Toxicity Performed By: #### U TOMAS, TSH, CMP, LIPID, T7 #### [facility] [id number] Hugh Landis US KIDNEYS BLADDERon 022 [...] AUSTIN LARIOS Date: 2021-11-01 16:44 Normal [facility] XR CHEST 2 Von 11-01-2021 XR [...] OBIE TSE Date: 2021-11-01 06:51 Normal [facility] NM LUNG VENT_PERFon 11-01-19 22 NM LUNG VENT_PERF EXAM: NM LUNG VENT_PERF HISTORY: Dyspnea COMPARISON: Chest x-ray 10/31/2021 TECHNIQUE: 6.1 mCi technetium MAA. 24.9 mCi technetium DTPA. FINDINGS: Perfusion images demonstrate no segmental perfusion defects to suggest acute pulmonary embolism Ventilation images are normal without ventilation defects. IMPRESSION: Normal ventilation/perfusion scan Electronically authenticated by: JASPER SCHRADER Date: 2021-10-31 12:35 Normal [facility] PROF CHEM 8 (BAS METB)on Anion gap [Moles/Vol] 17.5 mmol/L Normal [facility] Comment on above: Performed By: #### B MP #### [facility] [address] [place] [address] Dr. Hugh Landis Calcium [Mass/Vol] 9.4 mg/dL Normal 8.5-10.1 [facility] Comment on above: Performed By: #### B MP #### [facility] [address] [place] [address] Dr. Hugh Landis Chloride [Moles/Vol] 100 mmol/L Normal 98-107 [facility] Comment on above: Performed By: #### B MP #### [facility] [address] [address] [address] Hugh Landis CO2 [Moles/Vol] 22.8 mmol/L Normal 21.0-32.0 [facility] Comment on above: Performed By: #### B MP #### [facility] [address] [address] [address] Hugh Landis Creatinine [Mass/Vol] 2.69 mg/dL Critically high 0.70-1.30 [facility] Comment on above: Performed By: #### B MP #### [facility] [address] [address] [address] Hugh Landis EGFR-AF ESTONIAN 30 mL/min/1.73m2 Critically low >=60 [facility] Comment on above: Performed By: #### B MP #### [facility] [address] [address] [address] Hugh Landis EGFR-NON AF ESTONIAN 24 mL/min/1.73m2 Critically low >=60 [facility] Comment on above: Performed By: #### B MP #### [facility] [address] [address] [address] Hugh Landis Glucose [Mass/Vol] 117 mg/dL Critically high 74-106 [facility] Comment on above: Performed By: #### B MP #### [facility] [address] [address] [address] Hugh Landis Potassium [Moles/Vol] 4.3 mmol/L Normal 3.5-5.1 [facility] Comment on above: Performed By: #### B MP #### [facility] [address] [place] [address] Dr. Hugh Landis Sodium [Moles/Vol] 136 mmol/L Normal 136-145 [facility] Comment on above: Performed By: #### B MP #### [facility] [address] [place] [address] Dr. Hugh Landis Urea nitrogen [Mass/Vol] 41.0 mg/dL Critically high 7.0-18.0 [facility] Comment on above: Performed By: #### B MP #### [facility] [address] [address] [address] Hugh Landis Urea nitrogen/Creatinine [Mass ratio] 15.2 mg/mg Normal [facility] Comment on above: Performed By: #### B MP #### [facility] [address] [place] [address] Dr. Hugh Landis CBC AUTO DIFFon 10-16-2021 BASO # 0.0 103/ul Normal 0.0-0.1 [facility] Comment on above: Performed By: #### P T #### [facility] [address] [place] [address] Dr. Hugh Landis Basophils/100 WBC (Bld) 0.6 % Normal 0.2-2.0 [facility] Comment on above: Performed By: #### P T #### [facility] [address] [place] [address] Dr. Hugh Landis EO # 0.2 103/ul Normal 0.0-0.7 [facility] Comment on above: Performed By: #### P T #### [facility] [address] [place] [address] Dr. Hugh Landis Eosinophils/100 WBC (Bld) 2.3 % Normal 0.9-7.0 [facility] Comment on above: Performed By: #### P T #### [facility] [address] [place] [address] Dr. Hugh Landis Erythrocyte distribution width (RBC) [Ratio] 12.7 % Normal 11.0-15.0 [facility] Comment on above: Performed By: #### P T #### [facility] [address] [place] [address] Dr. Hugh Landis Hematocrit (Bld) [Volume fraction] 36.2 % Critically low 42.0-54.0 [facility] Comment on above: Performed By: #### P T #### [facility] [address] [place] [address] Dr. Hugh Landis Hemoglobin (Bld) [Mass/Vol] 11.5 g/dL Critically low 14.0-18.0 [facility] Comment on above: Performed By: #### P T #### [facility] [address] [place] [address] Dr. Hugh Landis IG # 0.02 10e3/ul Normal 0.00-0.03 [facility] Comment on above: Performed By: #### P T #### [facility] [address] [place] [address] Dr. Hugh Landis IG % 0.3 % Normal 0.0-0.5 [facility] Comment on above: Performed By: #### P T #### [facility] [address] [place] [address] Dr. Hugh Landis LYMPH # 1.4 103/ul Normal 1.2-3.8 [facility] Comment on above: Performed By: #### P T #### [facility] [address] [place] [address] Dr. Hugh Landis Lymphocytes/100 WBC (Bld) 21.3 % Normal 20.5-60.0 [facility] Comment on above: Performed By: #### P T #### [facility] [address] [place] [address] Dr. Hugh Landis MANUAL DIFF REQ NO Normal [facility] Comment on above: Performed By: #### P T #### [facility] [address] [place] [address] Dr. Hugh Landis MCH (RBC) [Entitic mass] 29.6 pg Normal 25.9-34.0 [facility] Comment on above: Performed By: #### P T #### [facility] [address] [place] [address] Dr. Hugh Landis MCHC (RBC) [Mass/Vol] 31.8 g/dL Normal 29.9-35.2 [facility] Comment on above: Performed By: #### P T #### [facility] [address] [place] [address] Dr. Hugh Landis MCV (RBC) [Entitic vol] 93.1 fL Normal 80.0-94.0 [facility] Comment on above: Performed By: #### P T #### [facility] [address] [place] [address] Dr. Hugh Landis MONO # 0.8 103/ul Normal 0.3-0.8 [facility] Comment on above: Performed By: #### P T #### [facility] [address] [place] [address] Dr. Hugh Landis Monocytes/100 WBC (Bld) 11.5 % Normal 1.7-12.0 [facility] Comment on above: Performed By: #### P T #### [facility] [address] [place] [address] Dr. Hugh Landis NEUT # 4.2 103/ul Normal 1.4-6.5 [facility] Comment on above: Performed By: #### P T #### [facility] [address] [place] [address] Dr. Hugh Landis Neutrophils/100 WBC (Bld) 64.0 % Normal 43.0-75.0 [facility] Comment on above: Performed By: #### P T #### [facility] [address] [place] [address] Dr. Hugh Landis Platelet mean volume (Bld) [Entitic vol] 9.2 fL Critically low 9.5-13.5 [facility] Comment on above: Performed By: #### P T #### [facility] [address] [place] [address] Dr. Hugh Landis PLT 241 103/ul Normal 150-450 [facility] Comment on above: Performed By: #### P T #### [facility] [address] [place] [address] Dr. Hugh Landis RBC 3.89 106/ul Critically low 4.70-6.10 [facility] Comment on above: Performed By: #### P T #### [facility] [address] [place] [address] Dr. Hugh Landis WBC 6.5 103/ul Normal 4.0-11.0 [facility] Comment on above: Performed By: #### P T #### [facility] [address] [place] [address] Dr. Hugh Landis [facility] SARS-CoV-2 (COVID-19) RNA MUKUL+probe Ql (Unsp spec) Not detected Normal NOT DETECTED [facility] Comment on above: Result Comment: This test is not yet approved or cleared by the [place] FDA. When there are no FDA-approved or cleared tests available, and other criteria are met, FDA can make tests available under an emergency access mechanism called an Emergency Use Authorization (EUA). The EUA for this test is supported by the [place] of Health and Human Service's (HHS's) declaration [...] U TOMAS, TSH, CMP, LIPID, T7 #### [facility] [address] [place] [address] Dr. Hugh Landis PROF CHEM 8 (BAS METB)on Anion gap [Moles/Vol] 16.3 mmol/L Normal [facility] Comment on above: Performed By: #### C MP, LIPID, TSH #### [facility] [address] [place] [address] Dr. Hugh Landis Calcium [Mass/Vol] 9.6 mg/dL Normal 8.5-10.1 [facility] Comment on above: Performed By: #### C MP, LIPID, TSH #### [facility] [address] [place] [address] Dr. Hugh Landis Chloride [Moles/Vol] 103 mmol/L Normal 98-107 [facility] Comment on above: Performed By: #### C MP, LIPID, TSH #### [facility] [address] [place] [address] Dr. Hugh Landis CO2 [Moles/Vol] 21.9 mmol/L Normal 21.0-32.0 [facility] Comment on above: Performed By: #### C MP, LIPID, TSH #### [facility] [address] [place] [address] Dr. Hugh Landis Creatinine [Mass/Vol] 3.58 mg/dL Critically high 0.70-1.30 [facility] Comment on above: Performed By: #### C MP, LIPID, TSH #### [facility] [address] [place] [address] Dr. Hugh Landis EGFR-AF ESTONIAN 21 mL/min/1.73m2 Critically low >=60 [facility] Comment on above: Performed By: #### C MP, LIPID, TSH #### [facility] [address] [place] [address] Dr. Hugh Landis EGFR-NON AF ESTONIAN 18 mL/min/1.73m2 Critically low >=60 [facility] Comment on above: Performed By: #### C MP, LIPID, TSH #### [facility] [address] [place] [address] Dr. Hugh Landis Glucose [Mass/Vol] 115 mg/dL Critically high 74-106 [facility] Comment on above: Performed By: #### C MP, LIPID, TSH #### [facility] [address] [place] [address] Dr. Hugh Landis Potassium [Moles/Vol] 5.2 mmol/L Critically high 3.5-5.1 [facility] Comment on above: Performed By: #### C MP, LIPID, TSH #### [facility] [address] [place] [address] Dr. Hugh Landis Sodium [Moles/Vol] 136 mmol/L Normal 136-145 [facility] Comment on above: Performed By: #### C MP, LIPID, TSH #### [facility] [address] [place] [address] Dr. Hugh Landis Urea nitrogen [Mass/Vol] 54.0 mg/dL Critically high 7.0-18.0 [facility] Comment on above: Performed By: #### C MP, LIPID, TSH #### [facility] [address] [place] [address] Dr. Hugh Landis Urea nitrogen/Creatinine [Mass ratio] 15.1 mg/mg Normal [facility] Comment on above: Performed By: #### C MP, LIPID, TSH #### [facility] [address] [place] [address] Dr. Hugh Landis MRSA COLONIZATION SCREENING CULTUREon 10-09-2021 MRSA Screening Culture Negative Normal [facility] Comment on above: Performed By: #### C MP, LIPID, TSH #### [facility] [address] [place] [address] Dr. Hugh Landis CBC AUTO DIFFon 10-06-2021 BASO # 0.0 103/ul Normal 0.0-0.1 [facility] Comment on above: Performed By: #### U TOMAS, TSH, CMP, LIPID, T7 #### [facility] [address] [place] [address] Dr. Hugh Landis Basophils/100 WBC (Bld) 0.3 % Normal 0.2-2.0 [facility] Comment on above: Performed By: #### U TOMAS, TSH, CMP, LIPID, T7 #### [facility] [address] [place] [address] Dr. Hugh Landis EO # 0.1 103/ul Normal 0.0-0.7 [facility] Comment on above: Performed By: #### U TOMAS, TSH, CMP, LIPID, T7 #### [facility] [address] [place] [address] Dr. Hugh Landis Eosinophils/100 WBC (Bld) 2.3 % Normal 0.9-7.0 [facility] Comment on above: Performed By: #### U TOMAS, TSH, CMP, LIPID, T7 #### [facility] [address] [place] [address] Dr. Hugh Landis Erythrocyte distribution width (RBC) [Ratio] 13.3 % Normal 11.0-15.0 [facility] Comment on above: Performed By: #### U TOMAS, TSH, CMP, LIPID, T7 #### [facility] [address] [place] [address] Dr. Hugh Landis Hematocrit (Bld) [Volume fraction] 36.5 % Critically low 42.0-54.0 [facility] Comment on above: Performed By: #### U TOMAS, TSH, CMP, LIPID, T7 #### [facility] [address] [place] [address] Dr. Hugh Landis Hemoglobin (Bld) [Mass/Vol] 11.7 g/dL Critically low 14.0-18.0 [facility] Comment on above: Performed By: #### U TOMAS, TSH, CMP, LIPID, T7 #### [facility] [address] [address] [address] Hugh Landis IG # 0.02 10e3/ul Normal 0.00-0.03 [facility] Comment on above: Performed By: #### U TOMAS, TSH, CMP, LIPID, T7 #### [facility] [address] [address] [address] Hugh Landis IG % 0.3 % Normal 0.0-0.5 [facility] Comment on above: Performed By: #### U TOMAS, TSH, CMP, LIPID, T7 #### [facility] [address] [place] [address] Dr. Hugh Landis LYMPH # 1.3 103/ul Normal 1.2-3.8 [facility] Comment on above: Performed By: #### U TOMAS, TSH, CMP, LIPID, T7 #### [facility] [address] [place] [address] Dr. Hugh Landis Lymphocytes/100 WBC (Bld) 21.9 % Normal 20.5-60.0 [facility] Comment on above: Performed By: #### U TOMAS, TSH, CMP, LIPID, T7 #### [facility] [address] [place] [address] Dr. Hugh Landis MANUAL DIFF REQ NO Normal [facility] Comment on above: Performed By: #### U TOMAS, TSH, CMP, LIPID, T7 #### [facility] [address] [place] [address] Dr. Hugh Landis MCH (RBC) [Entitic mass] 29.7 pg Normal 25.9-34.0 [facility] Comment on above: Performed By: #### U TOMAS, TSH, CMP, LIPID, T7 #### [facility] [address] [place] [address] Dr. Hugh Landis MCHC (RBC) [Mass/Vol] 32.1 g/dL Normal 29.9-35.2 [facility] Comment on above: Performed By: #### U TOMAS, TSH, CMP, LIPID, T7 #### [facility] [address] [place] [address] Dr. Hugh Landis MCV (RBC) [Entitic vol] 92.6 fL Normal 80.0-94.0 [facility] Comment on above: Performed By: #### U TOMAS, TSH, CMP, LIPID, T7 #### [facility] [address] [address] [address] Hugh Landis MONO # 0.7 103/ul Normal 0.3-0.8 [facility] Comment on above: Performed By: #### U TOMAS, TSH, CMP, LIPID, T7 #### [facility] [address] [address] [address] Hugh Landis Monocytes/100 WBC (Bld) 11.3 % Normal 1.7-12.0 [facility] Comment on above: Performed By: #### U TOMAS, TSH, CMP, LIPID, T7 #### [facility] [address] [address] Dr. Hugh Landis NEUT # 3.7 103/ul Normal 1.4-6.5 [facility] Comment on above: Performed By: #### U TOMAS, TSH, CMP, LIPID, T7 #### [facility] [address] [place] [address] Dr. Hugh Ladnis Neutrophils/100 WBC (Bld) 63.9 % Normal 43.0-75.0 [facility] Comment on above: Performed By: #### U TOMAS, TSH, CMP, LIPID, T7 #### [facility] [address] [address] [address] Hugh Landis Platelet mean volume (Bld) [Entitic vol] 8.9 fL Critically low 9.5-13.5 [facility] Comment on above: Performed By: #### U TOMAS, TSH, CMP, LIPID, T7 #### [facility] [address] [address] [address] Hugh Landis PLT 257 103/ul Normal 150-450 [facility] Comment on above: Performed By: #### U TOMAS, TSH, CMP, LIPID, T7 #### [facility] [address] [address] [address] Hugh Landis RBC 3.94 106/ul Critically low 4.70-6.10 [facility] Comment on above: Performed By: #### U TOMAS, TSH, CMP, LIPID, T7 #### [facility] [address] [address] [address] Hugh Landis WBC 5.8 103/ul Normal 4.0-11.0 [facility] Comment on above: Performed By: #### U TOMAS, TSH, CMP, LIPID, T7 #### [facility] [address] [address] [address] Hugh Landis GLYCOHEMOGLOBIN A1Con 2021 ADA RECOMMENDATION SEE BELOW Normal [facility] Comment on above: Result Comment: ADA RECOMMENDED LIMIT 4.0 - 6.0 ADA THERAPEUTIC TARGET < 7.0 ACTION SUGGESTED > 7.0 Performed By: #### U TOMAS, TSH, CMP, LIPID, T7 #### [facility] [address] [address] [address] Hugh Landis Glucose [Mass/Vol] 134 mg/dL Normal [facility] Comment on above: Performed By: #### U TOMAS, TSH, CMP, LIPID, T7 #### [facility] [address] [address] [address] Hugh Landis HbA1c (Bld) [Mass fraction] 6.3 % Critically high 4.5-6.2 [facility] Comment on above: Performed By: #### U TOMAS, TSH, CMP, LIPID, T7 #### [facility] [address] [address] [address] Hugh Landis PROF CHEM 8 (BAS METB)on Anion gap [Moles/Vol] 17.6 mmol/L Normal [facility] Comment on above: Performed By: #### C MP, LIPID, TSH #### [facility] [address] [address] [address] Hugh Landis Calcium [Mass/Vol] 9.5 mg/dL Normal 8.5-10.1 [facility] Comment on above: Performed By: #### C MP, LIPID, TSH #### [facility] [address] [address] [address] Hugh Landis Chloride [Moles/Vol] 102 mmol/L Normal 98-107 [facility] Comment on above: Performed By: #### C MP, LIPID, TSH #### [facility] [address] [place] [address] Dr. Hugh Landis CO2 [Moles/Vol] 22.2 mmol/L Normal 21.0-32.0 [facility] Comment on above: Performed By: #### C MP, LIPID, TSH #### [facility] [address] [place] [address] Dr. Hugh Landis Creatinine [Mass/Vol] 2.94 mg/dL Critically high 0.70-1.30 [facility] Comment on above: Performed By: #### C MP, LIPID, TSH #### [facility] [address] [place] [address] Dr. Hugh Landis EGFR-AF ESTONIAN 27 mL/min/1.73m2 Critically low >=60 [facility] Comment on above: Performed By: #### C MP, LIPID, TSH #### [facility] [address] [place] [address] Dr. Hugh Landis EGFR-NON AF ESTONIAN 22 mL/min/1.73m2 Critically low >=60 [facility] Comment on above: Performed By: #### C MP, LIPID, TSH #### [facility] [address] [place] [address] Dr. Hugh Landis Glucose [Mass/Vol] 234 mg/dL Critically high 74-106 [facility] Comment on above: Performed By: #### C MP, LIPID, TSH #### [facility] [address] [place] [address] Dr. Hugh Landis Potassium [Moles/Vol] 5.8 mmol/L Critically high 3.5-5.1 [facility] Comment on above: Performed By: #### C MP, LIPID, TSH #### [facility] [address] [place] [address] Dr. Hugh Landis Sodium [Moles/Vol] 136 mmol/L Normal 136-145 [facility] Comment on above: Performed By: #### C MP, LIPID, TSH #### [facility] [address] [address] [address] Hugh Landis Urea nitrogen [Mass/Vol] 46.0 mg/dL Critically high 7.0-18.0 [facility] Comment on above: Performed By: #### C MP, LIPID, TSH #### [facility] [address] [address] [address] Hugh Landis Urea nitrogen/Creatinine [Mass ratio] 15.6 mg/mg Normal [facility] Comment on above: Performed By: #### C MP, LIPID, TSH #### [facility] [address] [address] [address] Hugh Landis PROTIMEon 10-06-2021 INR Coag (PPP) [Relative time] 1.22 {INR} Normal [facility] Comment on above: Performed By: #### U TOMAS, TSH, CMP, LIPID, T7 #### [facility] [address] [place] [address] Dr. Hugh Landis INR GUIDELINES SEE BELOW Normal [facility] Comment on above: Result Comment: VIC RED INR: 2.0 - 3.0 CONDITIONS NOT LISTED BELOW 2.5 - 3.5 FOR PROSTHETIC HEART VALVE REPLACEMENT 2.5 - 3.5 RECURRENT THROMBOSIS Performed By: #### U TOMAS, TSH, CMP, LIPID, T7 #### [facility] [address] [place] [address] Dr. Hugh Landis PT Coag (PPP) [Time] 13.0 s Critically high 9.0-11.6 [facility] Comment on above: Performed By: #### U TOMAS, TSH, CMP, LIPID, T7 #### [facility] [address] [place] [address] Dr. Hugh Landis PTTon 10-06-2021 aPTT Coag (Bld) [Time] 30.6 s Normal 22.3-36.2 [facility] Comment on above: Performed By: #### U TOMAS, TSH, CMP, LIPID, T7 #### [facility] [address] [place] [address] Dr. Hugh Landis UA RANDOMon 10-06-2021 Bilirubin Ql (U) Negative Normal NEGATIVE [facility] Comment on above: Performed By: #### C MP, LIPID, TSH #### [facility] [address] [address] [address] Hugh Landis Clarity (U) CLEAR Normal CLEAR [facility] Comment on above: Performed By: #### C MP, LIPID, TSH #### [facility] [address] [address] [address] Hugh Landis Color (U) LT. YELLOW Normal YELLOW [facility] Comment on above: Performed By: #### C MP, LIPID, TSH #### [facility] [address] [address] [address] Hugh Landis Glucose Ql (U) Negative Normal NEGATIVE [facility] Comment on above: Performed By: #### C MP, LIPID, TSH #### [facility] [address] [place] [address] Dr. Hugh Landis Hemoglobin Ql (U) Negative Normal NEGATIVE [facility] Comment on above: Performed By: #### C MP, LIPID, TSH #### [facility] [address] [place] [address] Dr. Hugh Landis Ketones Ql (U) Negative Normal NEGATIVE [facility] Comment on above: Performed By: #### C MP, LIPID, TSH #### [facility] [address] [place] [address] Dr. Hugh Landis LEUKOCYTES Negative Normal NEGATIVE [facility] Comment on above: Performed By: #### C MP, LIPID, TSH #### [facility] [address] [address] [address] Hugh Landis Nitrite Ql (U) Negative Normal NEGATIVE [facility] Comment on above: Performed By: #### C MP, LIPID, TSH #### [facility] [address] [address] [address] Hugh Landis pH (U) 5.5 [pH] Normal 5-9 [facility] Comment on above: Performed By: #### C MP, LIPID, TSH #### [facility] [address] [address] [address] Hugh Landis SPEC GRAVITY 1.020 Normal 1.005-<=1.02 5 [facility] Comment on above: Performed By: #### C MP, LIPID, TSH #### [facility] [address] [place] [address] Dr. Hugh Landis UA PROTEIN Negative Normal NEGATIVE/ TRACE [facility] Comment on above: Performed By: #### C MP, LIPID, TSH #### [facility] [address] [place] [address] Dr. Hugh Landis Urobilinogen Qn (U) 0.2 {Dahiana'U}/dL Normal 0.2 - 1. 0 [facility] Comment on above: Performed By: #### C MP, LIPID, TSH #### [facility] [address] [place] [address] Dr. Hugh Landis CBC AUTO DIFFon 09-25-2021 BASO # 0.0 103/ul Normal 0.0-0.1 [facility] Comment on above: Performed By: #### U TOMAS, TSH, CMP, LIPID, T7 #### [facility] [address] [place] [address] Dr. Hugh Landis Basophils/100 WBC (Bld) 0.4 % Normal 0.2-2.0 [facility] Comment on above: Performed By: #### U TOMAS, TSH, CMP, LIPID, T7 #### [facility] [address] [place] [address] Dr. Hugh Landis EO # 0.1 103/ul Normal 0.0-0.7 [facility] Comment on above: Performed By: #### U TOMAS, TSH, CMP, LIPID, T7 #### [facility] [address] [place] [address] Dr. Hugh Landis Eosinophils/100 WBC (Bld) 1.7 % Normal 0.9-7.0 [facility] Comment on above: Performed By: #### U TOMAS, TSH, CMP, LIPID, T7 #### [facility] [address] [place] [address] Dr. Hugh Landis Erythrocyte distribution width (RBC) [Ratio] 13.5 % Normal 11.0-15.0 [facility] Comment on above: Performed By: #### U TOMAS, TSH, CMP, LIPID, T7 #### [facility] [address] [place] [address] Dr. Hugh Landis Hematocrit (Bld) [Volume fraction] 36.0 % Critically low 42.0-54.0 [facility] Comment on above: Performed By: #### U TOMAS, TSH, CMP, LIPID, T7 #### [facility] [address] [place] [address] Dr. Hugh Landis Hemoglobin (Bld) [Mass/Vol] 11.7 g/dL Critically low 14.0-18.0 [facility] Comment on above: Performed By: #### U TOMAS, TSH, CMP, LIPID, T7 #### [facility] [address] [place] [address] Dr. Hugh Landis IG # 0.02 10e3/ul Normal 0.00-0.03 [facility] Comment on above: Performed By: #### U TOMAS, TSH, CMP, LIPID, T7 #### [facility] [address] [place] [address] Dr. Hugh Landis IG % 0.3 % Normal 0.0-0.5 [facility] Comment on above: Performed By: #### U TOMAS, TSH, CMP, LIPID, T7 #### [facility] [address] [place] [address] Dr. Hugh Landis LYMPH # 1.3 103/ul Normal 1.2-3.8 [facility] Comment on above: Performed By: #### U TOMAS, TSH, CMP, LIPID, T7 #### [facility] [address] [place] [address] Dr. Hugh Landis Lymphocytes/100 WBC (Bld) 18.3 % Critically low 20.5-60.0 [facility] Comment on above: Performed By: #### U TOMAS, TSH, CMP, LIPID, T7 #### [facility] [address] [place] [address] Dr. Hugh Landis MANUAL DIFF REQ NO Normal [facility] Comment on above: Performed By: #### U TOMAS, TSH, CMP, LIPID, T7 #### [facility] [address] [place] [address] Dr. Hugh Landis MCH (RBC) [Entitic mass] 29.4 pg Normal 25.9-34.0 [facility] Comment on above: Performed By: #### U TOMAS, TSH, CMP, LIPID, T7 #### [facility] [address] [place] [address] Dr. Hugh Landis MCHC (RBC) [Mass/Vol] 32.5 g/dL Normal 29.9-35.2 [facility] Comment on above: Performed By: #### U TOMAS, TSH, CMP, LIPID, T7 #### [facility] [address] [place] [address] Dr. Hugh Landis MCV (RBC) [Entitic vol] 90.5 fL Normal 80.0-94.0 [facility] Comment on above: Performed By: #### U TOMAS, TSH, CMP, LIPID, T7 #### [facility] [address] [place] [address] Dr. Hugh Landis MONO # 0.6 103/ul Normal 0.3-0.8 [facility] Comment on above: Performed By: #### U TOMAS, TSH, CMP, LIPID, T7 #### [facility] [address] [place] [address] Dr. Hugh Landis Monocytes/100 WBC (Bld) 8.6 % Normal 1.7-12.0 [facility] Comment on above: Performed By: #### U TOMAS, TSH, CMP, LIPID, T7 #### [facility] [address] [place] [address] Dr. Hugh Landis NEUT # 4.9 103/ul Normal 1.4-6.5 [facility] Comment on above: Performed By: #### U TOMAS, TSH, CMP, LIPID, T7 #### [facility] [address] [place] [address] Dr. Hugh Landis Neutrophils/100 WBC (Bld) 70.7 % Normal 43.0-75.0 [facility] Comment on above: Performed By: #### U TOMAS, TSH, CMP, LIPID, T7 #### [facility] [address] [address] [address] Hugh Landis Platelet mean volume (Bld) [Entitic vol] 8.8 fL Critically low 9.5-13.5 [facility] Comment on above: Performed By: #### U TOMAS, TSH, CMP, LIPID, T7 #### [facility] [address] [place] [address] Dr. Hugh Landis PLT 270 103/ul Normal 150-450 [facility] Comment on above: Performed By: #### U TOMAS, TSH, CMP, LIPID, T7 #### [facility] [address] [place] [address] Dr. Hugh Landis RBC 3.98 106/ul Critically low 4.70-6.10 [facility] Comment on above: Performed By: #### U TOMAS, TSH, CMP, LIPID, T7 #### [facility] [address] [place] [address] Dr. Hugh Landis WBC 6.9 103/ul Normal 4.0-11.0 [facility] Comment on above: Performed By: #### U TOMAS, TSH, CMP, LIPID, T7 #### [facility] [address] [place] [address] Dr. Hugh Landis CRPon 09-25-2021 CRP [Mass/Vol] mg/L Normal <=1.0 [facility] Comment on above: Performed By: #### P T #### [facility] [address] [place] [address] Dr. Hugh Landis CULTURE BLOODon 09-25-2021 Microscopic examination of blood, culture Culture Observations: NO GROWTH AT 5 DAYS. Normal [facility] Comment on above: Performed By: #### B MP #### [facility] [address] [place] [address] Dr. Hugh Landis Microscopic examination of blood, culture Culture Observations: NO GROWTH AT 5 DAYS. Normal [facility] Comment on above: Performed By: #### B MP #### [facility] [address] [place] [address] Dr. Hugh Landis IRONon 09-25-2021 Iron [Mass/Vol] 62.0 ug/dL Critically low 65.0-175.0 [facility] Comment on above: Performed By: #### B MP #### [facility] [address] [address] [address] Hugh Landis SED RATE UPPERCOERGRENon 2021 SED RATE 102 mm/hr Critically high <=20 [facility] Comment on above: Performed By: #### C MP, LIPID, TSH #### [facility] [address] [place] [address] Dr. Hugh Landis NM BONE IMAGE 3 [...] OBIE TSE Date: 2021-09-05 16:15 Normal [facility] CREATININEon 08-25-2021 Creatinine [Mass/Vol] 1.92 mg/dL Critically high 0.70-1.30 [facility] Comment on above: Performed By: #### C MP, LIPID, TSH #### [facility] [address] [place] [address] Dr. Hugh Landis EGFR-AF ESTONIAN 44 mL/min/1.73m2 Critically low >=60 [facility] Comment on above: Performed By: #### C MP, LIPID, TSH #### [facility] [address] [place] [address] Dr. Hugh Landis EGFR-NON AF ESTONIAN 36 mL/min/1.73m2 Critically low >=60 [facility] Comment on above: Performed By: #### C MP, LIPID, TSH #### [facility] [address] [address] [address] Hugh Landis CTA CHEST WO W [...] OBIE TSE Date: 2021-08-25 10:16 Normal [facility] CBC AUTO DIFFon 08-18-2021 BASO # 0.0 103/ul Normal 0.0-0.1 [facility] Comment on above: Performed By: #### C MP, LIPID, TSH #### [facility] [address] [address] [address] Hugh Landis Basophils/100 WBC (Bld) 0.4 % Normal 0.2-2.0 [facility] Comment on above: Performed By: #### C MP, LIPID, TSH #### [facility] [address] [address] [address] Hugh Landis EO # 0.1 103/ul Normal 0.0-0.7 [facility] Comment on above: Performed By: #### C MP, LIPID, TSH #### [facility] [address] [address] [address] Hugh Landis Eosinophils/100 WBC (Bld) 1.8 % Normal 0.9-7.0 [facility] Comment on above: Performed By: #### C MP, LIPID, TSH #### [facility] [address] [place] [address] Dr. Hugh Landis Erythrocyte distribution width (RBC) [Ratio] 13.3 % Normal 11.0-15.0 [facility] Comment on above: Performed By: #### C MP, LIPID, TSH #### [facility] [address] [place] [address] Dr. Hugh Landis Hematocrit (Bld) [Volume fraction] 34.7 % Critically low 42.0-54.0 [facility] Comment on above: Performed By: #### C MP, LIPID, TSH #### [facility] [address] [place] [address] Dr. Hugh Landis Hemoglobin (Bld) [Mass/Vol] 11.3 g/dL Critically low 14.0-18.0 [facility] Comment on above: Performed By: #### C MP, LIPID, TSH #### [facility] [address] [place] [address] Dr. Hugh Landis IG # 0.05 10e3/ul Critically high 0.00-0.03 [facility] Comment on above: Performed By: #### C MP, LIPID, TSH #### [facility] [address] [place] [address] Dr. Hugh Landis IG % 0.7 % Critically high 0.0-0.5 [facility] Comment on above: Performed By: #### C MP, LIPID, TSH #### [facility] [address] [place] [address] Dr. Hugh Landis LYMPH # 1.1 103/ul Critically low 1.2-3.8 [facility] Comment on above: Performed By: #### C MP, LIPID, TSH #### [facility] [address] [place] [address] Dr. Hugh Landis Lymphocytes/100 WBC (Bld) 16.0 % Critically low 20.5-60.0 [facility] Comment on above: Performed By: #### C MP, LIPID, TSH #### [facility] [address] [place] [address] Dr. Hugh Landis MANUAL DIFF REQ NO Normal [facility] Comment on above: Performed By: #### C MP, LIPID, TSH #### [facility] [address] [place] [address] Dr. Hugh Landis MCH (RBC) [Entitic mass] 29.7 pg Normal 25.9-34.0 [facility] Comment on above: Performed By: #### C MP, LIPID, TSH #### [facility] [address] [place] [address] Dr. Hugh Landis MCHC (RBC) [Mass/Vol] 32.6 g/dL Normal 29.9-35.2 [facility] Comment on above: Performed By: #### C MP, LIPID, TSH #### [facility] [address] [place] [address] Dr. Hugh Landis MCV (RBC) [Entitic vol] 91.3 fL Normal 80.0-94.0 [facility] Comment on above: Performed By: #### C MP, LIPID, TSH #### [facility] [address] [place] [address] Dr. Hugh Landis MONO # 0.7 103/ul Normal 0.3-0.8 [facility] Comment on above: Performed By: #### C MP, LIPID, TSH #### [facility] [address] [place] [address] Dr. Hugh Landis Monocytes/100 WBC (Bld) 9.7 % Normal 1.7-12.0 [facility] Comment on above: Performed By: #### C MP, LIPID, TSH #### [facility] [address] [place] [address] Dr. Hugh Landis NEUT # 4.9 103/ul Normal 1.4-6.5 [facility] Comment on above: Performed By: #### C MP, LIPID, TSH #### [facility] [address] [place] [address] Dr. Hugh Landis Neutrophils/100 WBC (Bld) 71.4 % Normal 43.0-75.0 [facility] Comment on above: Performed By: #### C MP, LIPID, TSH #### [facility] [address] [address] [address] Hugh Landis Platelet mean volume (Bld) [Entitic vol] 9.0 fL Critically low 9.5-13.5 [facility] Comment on above: Performed By: #### C MP, LIPID, TSH #### [facility] [address] [address] [address] Hugh Landis PLT 264 103/ul Normal 150-450 [facility] Comment on above: Performed By: #### C MP, LIPID, TSH #### [facility] [address] [address] [address] Hugh Landis RBC 3.80 106/ul Critically low 4.70-6.10 [facility] Comment on above: Performed By: #### C MP, LIPID, TSH #### [facility] [address] [place] [address] Dr. Hugh Landis WBC 6.8 103/ul Normal 4.0-11.0 [facility] Comment on above: Performed By: #### C MP, LIPID, TSH #### [facility] [address] [place] [address] Dr. Hugh Landis PROF 14(COMP METB)on 022 Albumin [Mass/Vol] 3.5 g/dL Normal 3.4-5.0 [facility] Comment on above: Performed By: #### U TOMAS, TSH, CMP, LIPID, T7 #### [facility] [address] [place] [address] Dr. Hugh Landis Albumin/Globulin [Mass ratio] 0.8 {ratio} Normal [facility] Comment on above: Performed By: #### U TOMAS, TSH, CMP, LIPID, T7 #### [facility] [address] [place] [address] Dr. Hugh Landis ALP [Catalytic activity/Vol] 63 U/L Normal 46-116 [facility] Comment on above: Performed By: #### U TOMAS, TSH, CMP, LIPID, T7 #### [facility] [address] [address] [address] Hugh Landis ALT [Catalytic activity/Vol] 26 U/L Normal 16-63 [facility] Comment on above: Performed By: #### U TOMAS, TSH, CMP, LIPID, T7 #### [facility] [address] [address] [address] Hugh Landis Anion gap [Moles/Vol] 12.7 mmol/L Normal [facility] Comment on above: Performed By: #### U TOMAS, TSH, CMP, LIPID, T7 #### [facility] [address] [address] [address] Hugh Landis AST [Catalytic activity/Vol] 14 U/L Critically low 15-37 [facility] Comment on above: Performed By: #### U TOMAS, TSH, CMP, LIPID, T7 #### [facility] [address] [address] [address] Hugh Landis Bilirubin [Mass/Vol] 0.3 mg/dL Normal 0.2-1.0 [facility] Comment on above: Performed By: #### U TOMAS, TSH, CMP, LIPID, T7 #### [facility] [address] [address] [address] Hugh Landis Calcium [Mass/Vol] 9.2 mg/dL Normal 8.5-10.1 [facility] Comment on above: Performed By: #### U TOMAS, TSH, CMP, LIPID, T7 #### [facility] [address] [address] [address] Hugh Landis Chloride [Moles/Vol] 105 mmol/L Normal 98-107 [facility] Comment on above: Performed By: #### U TOMAS, TSH, CMP, LIPID, T7 #### [facility] [address] [address] [address] Hugh Landis CO2 [Moles/Vol] 25.5 mmol/L Normal 21.0-32.0 [facility] Comment on above: Performed By: #### U TOMAS, TSH, CMP, LIPID, T7 #### [facility] [address] [address] [address] Hugh Landis Creatinine [Mass/Vol] 2.46 mg/dL Critically high 0.70-1.30 [facility] Comment on above: Performed By: #### U TOMAS, TSH, CMP, LIPID, T7 #### [facility] [address] [address] [address] Hugh Landis EGFR-AF ESTONIAN 33 mL/min/1.73m2 Critically low >=60 [facility] Comment on above: Performed By: #### U TOMAS, TSH, CMP, LIPID, T7 #### [facility] [address] [address] [address] Hugh Landis EGFR-NON AF ESTONIAN 27 mL/min/1.73m2 Critically low >=60 [facility] Comment on above: Performed By: #### U TOMAS, TSH, CMP, LIPID, T7 #### [facility] [address] [place] [address] Dr. Hugh Landis Globulin (S) [Mass/Vol] 4.5 g/dL Normal [facility] Comment on above: Performed By: #### U TOMAS, TSH, CMP, LIPID, T7 #### [facility] [address] [address] [address] Hguh Landis Glucose [Mass/Vol] 119 mg/dL Critically high 74-106 T [facility] Comment on above: Performed By: #### U TOMAS, TSH, CMP, LIPID, T7 #### [facility] [address] [address] [address] Hugh Landis Potassium [Moles/Vol] 4.2 mmol/L Normal 3.5-5.1 [facility] Comment on above: Performed By: #### U TOMAS, TSH, CMP, LIPID, T7 #### [facility] [address] [address] [address] Hugh Landis Protein [Mass/Vol] 8.0 g/dL Normal 6.4-8.2 [facility] Comment on above: Performed By: #### U TOMAS, TSH, CMP, LIPID, T7 #### [facility] [address] [address] [address] Hugh Landis Sodium [Moles/Vol] 139 mmol/L Normal 136-145 [facility] Comment on above: Performed By: #### U TOMAS, TSH, CMP, LIPID, T7 #### [facility] [address] [address] [address] Hugh Landis Urea nitrogen [Mass/Vol] 49.0 mg/dL Critically high 7.0-18.0 [facility] Comment on above: Performed By: #### U TOMAS, TSH, CMP, LIPID, T7 #### [facility] [id number] Hugh Landis Urea nitrogen/Creatinine [Mass ratio] 19.9 mg/mg Normal [facility] Comment on above: Performed By: #### U TOMAS, TSH, CMP, LIPID, T7 #### [facility] [address] [address] [address] Hugh Landis TESTOSTERONE, FREE,DIRECT, T OTALon 08-14-2021 Free Testosterone(Direct) 5.9 pg/mL Critically low 7.2-24.0 [facility] Comment on above: Result Comment: Perf ormed at: BN Performed By: #### B MP #### [facility] [address] [place] [address] Dr. Hugh Landis Testosterone [Mass/Vol] 392 ng/dL Normal 264-916 [facility] Comment on above: Result Comment: Adul t male reference interval is based on a population of healthy nonobese males (BMI <30) between 19 and 39 years old. Gavi, et.al. JCEM 2017,102;4189-4288. PMID: [id number]. Performed at: CB Performed By: #### B MP #### [facility] [address] [place], [place] [id number] Dr. Hugh Landis VITAMIN B1 (THIAMINE)on 07-27 Vit. B1, Whole Blood 145.1 nmol/L Normal 66.5-200.0 [facility] Comment on above: Performed By: #### C MP, LIPID, TSH #### [facility] [id number] Hugh Landis VITAMIN Aon 08-13-2021 Vitamin A 82.7 ug/dL Critically high 20.1-62.0 [facility] Comment on above: Result Comment: Refe rence [...] Administration. Performed By: #### P T #### [facility] [address] [place] [address] Dr. Hugh Landis ZINC SERUM OR PLASMAon 08-10 Zinc, Plasma or Serum 78 ug/dL Normal 44-115 [facility] Comment on above: Result Comment: Dete ction Limit = 5 Performed By: #### C MP, LIPID, TSH #### [facility] [address] [place] [address] Dr. Hugh Landis FOLATE ([facility])on Folate 12.9 ng/mL Normal >3.0 [facility] Comment on above: Result Comment: A se rum folate concentration of less than 3.1 ng/mL is considered to represent clinical deficiency. Performed By: #### P TT #### [facility] [address] [place] [address] Dr. Hugh Landis PTH INTACTon 08-09-2021 PTH, Intact 29 pg/mL Normal 15-65 [facility] Comment on above: Performed By: #### P TT #### [facility] [address] [place] [address] Dr. Hugh Landis CBC AUTO DIFFon 08-08-2021 BASO # 0.0 103/ul Normal 0.0-0.1 [facility] Comment on above: Performed By: #### C MP, LIPID, TSH #### [facility] [address] [place] [address] Dr. Hugh Landis Basophils/100 WBC (Bld) 0.6 % Normal 0.2-2.0 [facility] Comment on above: Performed By: #### C MP, LIPID, TSH #### [facility] [address] [place] [address] Dr. Hugh Landis EO # 0.2 103/ul Normal 0.0-0.7 [facility] Comment on above: Performed By: #### C MP, LIPID, TSH #### [facility] [address] [place] [address] Dr. Hugh Landis Eosinophils/100 WBC (Bld) 2.2 % Normal 0.9-7.0 [facility] Comment on above: Performed By: #### C MP, LIPID, TSH #### [facility] [address] [place] [address] Dr. Hugh Landis Erythrocyte distribution width (RBC) [Ratio] 13.4 % Normal 11.0-15.0 [facility] Comment on above: Performed By: #### C MP, LIPID, TSH #### [facility] [address] [place] [address] Dr. Hugh Landis Hematocrit (Bld) [Volume fraction] 38.2 % Critically low 42.0-54.0 [facility] Comment on above: Performed By: #### C MP, LIPID, TSH #### [facility] [address] [place] [address] Dr. Hugh Landis Hemoglobin (Bld) [Mass/Vol] 11.8 g/dL Critically low 14.0-18.0 [facility] Comment on above: Performed By: #### C MP, LIPID, TSH #### [facility] [address] [place] [address] Dr. Hugh Landis IG # 0.03 10e3/ul Normal 0.00-0.03 [facility] Comment on above: Performed By: #### C MP, LIPID, TSH #### [facility] [address] [place] [address] Dr. Hugh Landis IG % 0.4 % Normal 0.0-0.5 [facility] Comment on above: Performed By: #### C MP, LIPID, TSH #### [facility] [address] [place] [address] Dr. Hugh Landis LYMPH # 1.0 103/ul Critically low 1.2-3.8 [facility] Comment on above: Performed By: #### C MP, LIPID, TSH #### [facility] [address] [place] [address] Dr. Hugh Landis Lymphocytes/100 WBC (Bld) 14.9 % Critically low 20.5-60.0 [facility] Comment on above: Performed By: #### C MP, LIPID, TSH #### [facility] [address] [place] [address] Dr. Hugh Landis MANUAL DIFF REQ NO Normal [facility] Comment on above: Performed By: #### C MP, LIPID, TSH #### [facility] [address] [place] [address] Dr. Hugh Landis MCH (RBC) [Entitic mass] 28.5 pg Normal 25.9-34.0 [facility] Comment on above: Performed By: #### C MP, LIPID, TSH #### [facility] [address] [place] [address] Dr. Hugh Landis MCHC (RBC) [Mass/Vol] 30.9 g/dL Normal 29.9-35.2 [facility] Comment on above: Performed By: #### C MP, LIPID, TSH #### [facility] [address] [place] [address] Dr. Hugh Landis MCV (RBC) [Entitic vol] 92.3 fL Normal 80.0-94.0 [facility] Comment on above: Performed By: #### C MP, LIPID, TSH #### [facility] [address] [place] [address] Dr. Hugh Landis MONO # 0.7 103/ul Normal 0.3-0.8 [facility] Comment on above: Performed By: #### C MP, LIPID, TSH #### [facility] [address] [place] [address] Dr. Hugh Landis Monocytes/100 WBC (Bld) 10.6 % Normal 1.7-12.0 [facility] Comment on above: Performed By: #### C MP, LIPID, TSH #### [facility] [address] [place] [address] Dr. Hugh Landis NEUT # 4.9 103/ul Normal 1.4-6.5 [facility] Comment on above: Performed By: #### C MP, LIPID, TSH #### [facility] [address] [place] [address] Dr. Hugh Landis Neutrophils/100 WBC (Bld) 71.3 % Normal 43.0-75.0 [facility] Comment on above: Performed By: #### C MP, LIPID, TSH #### [facility] [address] [place] [address] Dr. Hugh Landis Platelet mean volume (Bld) [Entitic vol] 9.4 fL Critically low 9.5-13.5 [facility] Comment on above: Performed By: #### C MP, LIPID, TSH #### [facility] [address] [place] [address] Dr. Hugh Landis PLT 249 103/ul Normal 150-450 [facility] Comment on above: Performed By: #### C MP, LIPID, TSH #### [facility] [address] [place] [address] Dr. Hugh Landis RBC 4.14 106/ul Critically low 4.70-6.10 [facility] Comment on above: Performed By: #### C MP, LIPID, TSH #### [facility] [address] [place] [address] Dr. Hugh Landis WBC 6.9 103/ul Normal 4.0-11.0 [facility] Comment on above: Performed By: #### C MP, LIPID, TSH #### [facility] [address] [place] [address] Dr. Hugh Landis FERRITINon 08-08-2021 Ferritin [Mass/Vol] 154.0 ng/mL Normal 26.0-388.0 [facility] Comment on above: Performed By: #### C MP, LIPID, TSH #### [facility] [address] [place] [address] Dr. Hugh Landis GLYCOHEMOGLOBIN A1Con 2021 ADA RECOMMENDATION SEE BELOW Normal [facility] Comment on above: Result Comment: ADA RECOMMENDED LIMIT 4.0 - 6.0 ADA THERAPEUTIC TARGET < 7.0 ACTION SUGGESTED > 7.0 Performed By: #### P T #### [facility] [address] [place] [address] [address] Hugh Landis Glucose [Mass/Vol] 140 mg/dL Normal [facility] Comment on above: Performed By: #### P T #### [facility] [address] [place] [address] [address] Hugh Landis HbA1c (Bld) [Mass fraction] 6.5 % Critically high 4.5-6.2 [facility] Comment on above: Performed By: #### P T #### [facility] [address] [place] [address] [address] Hugh Landis IRON AND TIBCon 08-08-2021 % SATURATION 13.6 % Normal [facility] Comment on above: Performed By: #### C MP, LIPID, TSH #### [facility] [address] [place] [address] [address] Hugh Landis Iron [Mass/Vol] 45.0 ug/dL Critically low 65.0-175.0 [facility] Comment on above: Performed By: #### C MP, LIPID, TSH #### [facility] [address] [place] [address] [address] Hugh Landis TIBC DIRECT 332.0 ug/dL Normal 250.0-450.0 [facility] Comment on above: Performed By: #### C MP, LIPID, TSH #### [facility] [address] [place] [address] [address] Hugh Landis LIPID PROFILEon 08-08-2021 CHOL-HDL RATIO NORM SEE BELOW Normal [facility] Comment on above: Result Comment: 3.3 - 4.4 LOW RISK 4.4 - 7.1 AVERAGE RISK 7.1 - 11.0 MODERATE RISK >11.0 HIGH RISK Performed By: #### C MP, LIPID, TSH #### [facility] [address] [place] [address] [address] Hugh Landis Cholesterol [Mass/Vol] 187 mg/dL Normal <=200 [facility] Comment on above: Performed By: #### C MP, LIPID, TSH #### [facility] [address] [place] [address] [address] Hugh Landis Cholesterol in HDL [Mass/Vol] 51 mg/dL Normal 40-60 [facility] Comment on above: Performed By: #### C MP, LIPID, TSH #### [facility] [address] [address] [address] Hugh Landis Cholesterol in LDL [Mass/Vol] 101.8 mg/dL Normal [facility] Comment on above: Performed By: #### C MP, LIPID, TSH #### [facility] [address] [place] [address] [address] Hugh Landis Cholesterol.total/Ch olesterol in HDL [Mass ratio] 3.7 {ratio} Normal [facility] Comment on above: Performed By: #### C MP, LIPID, TSH #### [facility] [address] [place] [address] [address] Hugh Landis HDL NORMAL > or = 60 mg/dl - LO W CARDIOVASCULAR RISK <40 mg/dl - HIGH CARDIOVASCULAR RISK Normal [facility] Comment on above: Performed By: #### C MP, LIPID, TSH #### [facility] [address] [place] [address] [address] Hugh Landis LDL CALC NORMAL SEE BELOW Normal [facility] Comment on above: Result Comment: <100 mg/dl OPTIMAL 100 - 129 mg/dl NEAR OR ABOVE OPTIMAL 130 - 159 mg/dl BORDERLINE HIGH 160 - 189 mg/dl HIGH >190 mg/dl VERY HIGH Performed By: #### C MP, LIPID, TSH #### [facility] [address] [place] [address] [address] Hugh Landis Triglyceride [Mass/Vol] 171 mg/dL Critically high <=150 [facility] Comment on above: Performed By: #### C MP, LIPID, TSH #### [facility] [address] [place] [address] [address] Hugh Landis VLDL CALC 34.2 mg/dL Normal [facility] Comment on above: Performed By: #### C MP, LIPID, TSH #### [facility] [address] [place] [address] [address] Hugh Landis PROF 14(COMP METB)on 022 Albumin [Mass/Vol] 3.6 g/dL Normal 3.4-5.0 [facility] Comment on above: Performed By: #### C MP, LIPID, TSH #### [facility] [address] [place] [address] [address] Hugh Landis Albumin/Globulin [Mass ratio] 0.8 {ratio} Normal [facility] Comment on above: Performed By: #### C MP, LIPID, TSH #### [facility] [address] [place] [address] [address] Hugh Landis ALP [Catalytic activity/Vol] 64 U/L Normal 46-116 [facility] Comment on above: Performed By: #### C MP, LIPID, TSH #### [facility] [address] [place] [address] [address] Hugh Landis ALT [Catalytic activity/Vol] 28 U/L Normal 16-63 [facility] Comment on above: Performed By: #### C MP, LIPID, TSH #### [facility] [address] [place] [address] [address] Hugh Landis Anion gap [Moles/Vol] 15.0 mmol/L Normal [facility] Comment on above: Performed By: #### C MP, LIPID, TSH #### [facility] [address] [place] [address] [address] Hugh Landis AST [Catalytic activity/Vol] 14 U/L Critically low 15-37 [facility] Comment on above: Performed By: #### C MP, LIPID, TSH #### [facility] [address] [address] [address] Hugh Landis Bilirubin [Mass/Vol] 0.5 mg/dL Normal 0.2-1.0 [facility] Comment on above: Performed By: #### C MP, LIPID, TSH #### [facility] [address] [place] [address] [address] Hugh Landis Calcium [Mass/Vol] 9.6 mg/dL Normal 8.5-10.1 [facility] Comment on above: Performed By: #### C MP, LIPID, TSH #### [facility] [address] [address] [address] Hugh Landis Chloride [Moles/Vol] 105 mmol/L Normal 98-107 [facility] Comment on above: Performed By: #### C MP, LIPID, TSH #### [facility] [address] [address] [address] Hugh Landis CO2 [Moles/Vol] 23.5 mmol/L Normal 21.0-32.0 [facility] Comment on above: Performed By: #### C MP, LIPID, TSH #### [facility] [address] [address] [address] Hugh Landis Creatinine [Mass/Vol] 2.69 mg/dL Critically high 0.70-1.30 [facility] Comment on above: Performed By: #### C MP, LIPID, TSH #### [facility] [address] [address] [address] Hugh Landis EGFR-AF ESTONIAN 30 mL/min/1.73m2 Critically low >=60 [facility] Comment on above: Performed By: #### C MP, LIPID, TSH #### [facility] [address] [address] [address] Hugh Landis EGFR-NON AF ESTONIAN 25 mL/min/1.73m2 Critically low >=60 [facility] Comment on above: Performed By: #### C MP, LIPID, TSH #### [facility] [address] [place] [address] [address] Hugh Landis Globulin (S) [Mass/Vol] 4.3 g/dL Normal [facility] Comment on above: Performed By: #### C MP, LIPID, TSH #### [facility] [address] [address] [address] Hugh Landis Glucose [Mass/Vol] 80 mg/dL Normal 74-106 [facility] Comment on above: Performed By: #### C MP, LIPID, TSH #### [facility] [address] [address] [address] Hugh Landis Potassium [Moles/Vol] 5.5 mmol/L Critically high 3.5-5.1 [facility] Comment on above: Performed By: #### C MP, LIPID, TSH #### [facility] [address] [place] [address] Dr. Hugh Landis Protein [Mass/Vol] 7.9 g/dL Normal 6.4-8.2 [facility] Comment on above: Performed By: #### C MP, LIPID, TSH #### [facility] [address] [place] [address] Dr. Hugh Landis Sodium [Moles/Vol] 138 mmol/L Normal 136-145 [facility] Comment on above: Performed By: #### C MP, LIPID, TSH #### [facility] [address] [place] [address] Dr. Hugh Landis Urea nitrogen [Mass/Vol] 47.0 mg/dL Critically high 7.0-18.0 [facility] Comment on above: Performed By: #### C MP, LIPID, TSH #### [facility] [address] [place] [address] Dr. Hugh Landis Urea nitrogen/Creatinine [Mass ratio] 17.5 mg/mg Normal [facility] Comment on above: Performed By: #### C MP, LIPID, TSH #### [facility] [address] [place] [address] Dr. Hugh Landis TSHon 08-08-2021 TSH 1.069 uIU/mL Normal 0.358-3.740 [facility] Comment on above: Performed By: #### C MP, LIPID, TSH #### [facility] [address] [place] [address] Dr. Hugh Landis TSH RANGE SEE BELOW Normal [facility] Comment on above: Result Comment: <0.3 4 UIU/ml HYPERTHYROID 0.34-5.60 UIU/ml EUTHYROID >5.60 UIU/ml HYPOTHYROID Performed By: #### C MP, LIPID, TSH #### [facility] [address] [place] [address] Dr. Hugh Landis VITAMIN B12on 08-08-2021 Cobalamin (Vitamin B12) [Mass/Vol] 336.0 pg/mL Normal 193.0-986.0 [facility] Comment on above: Performed By: #### C MP, LIPID, TSH #### [facility] [address] [place], [place] [id number] Dr. Hugh Landis VITAMIN D 25 OHon 08-08-2021 VIT D 25-OH 36.6 ng/mL Normal [facility] Comment on above: Performed By: #### C MP, LIPID, TSH #### [facility] [address] [place], [place] [id number] Dr. Hugh Landis VIT D RANGES SEE BELOW Normal [facility] Comment on above: Result Comment: <20 ng/mL Vit D deficient 20 - <30 ng/mL Vit D insufficient 30 - 100 ng/mL Vit D sufficient >100 ng/mL Potential Toxicity Performed By: #### C MP, LIPID, TSH #### [facility] [address] [place] [address] Dr. Hugh Landis KNEE RIGHT 3 Son 2 KNEE RIGHT 3 [facility] Department of Radiology [address] [place] [id number] ======== Patient Name: SUKHDEEP SIMENTAL : [...] disruption. Electronically signed: Cole Richmond. Transcribed by: [email or web address], User Resident: Electronically Signed by: COLE RICHMOND @ 07/23/2021 10:50 PM Normal [facility] Comment on above: Order Comment: Evalu ate CBCon 07-18-2021 Erythrocyte distribution width (RBC) [Ratio] 13.5 % Normal 11.8-14.4 [facility] Comment on above: Performed By: #### C BC, PT, PTT, BMP #### [facility] [address] [place] [id number] Gear Finisher: Good Melendez MD #### ANICOT #### [facility] [address] [place], [place] [id number] Gear Finisher: Troy Link MD Hematocrit (Bld) [Volume fraction] 39.1 % Low 40.7-50.3 [facility] Comment on above: Performed By: #### C BC, PT, PTT, BMP #### [facility] [address] [place] [id number] Gear Finisher: Good Melendez MD #### ANICOT #### [facility] [address] [place], [place] [id number] Gear Finisher: Troy Link MD Hemoglobin (Bld) [Mass/Vol] 12.3 g/dL Low 13.0-17.0 [facility] Comment on above: Performed By: #### C BC, PT, PTT, BMP #### [address] [id number] Gear Finisher: Good Melendez MD #### ANICOT #### [facility] [address] [place], [place] [id number] Gear Finisher: Troy Link MD MCH (RBC) [Entitic mass] 28.8 pg Normal 25.2-33.5 [facility] Comment on above: Performed By: #### C BC, PT, PTT, BMP #### [address] [id number] Gear Finisher: Good Melendez MD #### ANICOT #### [facility] [address] [place], [place] [id number] Gear Finisher: Troy Link MD MCHC (RBC) [Mass/Vol] 31.5 g/dL Normal 28.4-34.8 [facility] Comment on above: Performed By: #### C BC, PT, PTT, BMP #### [address] [id number] Gear Finisher: Good Melendez MD #### ANICOT #### [facility] [address] [place], [place] [id number] Gear Finisher: Troy Link MD MCV (RBC) [Entitic vol] 91.6 fL Normal 82.6-102.9 [facility] Comment on above: Performed By: #### C BC, PT, PTT, BMP #### [address] [id number] Gear Finisher: Good Melendez MD #### ANICOT #### [facility] [address] [place] [address] Gear Finisher: Troy Link MD NRBC Automated 0.0 per 100 WBC Normal 0.0 [facility] Comment on above: Performed By: #### C BC, PT, PTT, BMP #### [address] [address] Gear Finisher: Good Melendez MD #### ANICOT #### [facility] [address] [place] [address] Gear Finisher: Troy Link MD Platelet mean volume (Bld) [Entitic vol] 9.7 fL Normal 8.1-13.5 [facility] Comment on above: Performed By: #### C BC, PT, PTT, BMP #### [place] [address] Gear Finisher: Good Melendez MD #### ANICOT #### [facility] [address] [place] [address] Gear Finisher: Troy Link MD Platelets (Bld) [#/Vol] 190 10*3/uL Normal 138-453 [facility] Comment on above: Performed By: #### C BC, PT, PTT, BMP #### [address] [address] Gear Finisher: Good Melendez MD #### ANICOT #### [facility] [address] [place] [address] Gear Finisher: Troy Link MD RBC (Bld) [#/Vol] 4.27 10*6/uL Normal 4.21-5.77 [facility] Comment on above: Performed By: #### C BC, PT, PTT, BMP #### [address] [phone] Gear Finisher: Good Melendez MD #### ANICOT #### [facility] [address] [place], [place] [id number] Gear Finisher: Troy Link MD WBC (Bld) [#/Vol] 8.7 10*3/uL Normal 3.5-11.3 [facility] Comment on above: Performed By: #### C BC, PT, PTT, BMP #### [facility] [address] [place] [address] Gear Finisher: Good Melendez MD #### ANICOT #### [facility] [address] [place], [place] [phone] Gear Finisher: Troy Link MD APTTon 07-17-2021 aPTT Coag (Bld) [Time] 20.8 s Normal 20.5-30.5 [facility] Comment on above: Result Comment: IV Heparin Therapy Range: 48.6-77.8 Performed By: #### C BC, PT, PTT, BMP #### [address] [address] Gear Finisher: Good Melendez MD #### ANICOT #### [facility] [address] [place], [place] [phone] Gear Finisher: Troy Link MD aPTT Coag (Bld) [Time] 37.9 s High 20.5-30.5 [facility] Comment on above: Result Comment: IV Heparin Therapy Range: 48.6-77.8 Performed By: #### C BC, PT, PTT, BMP #### [address] [address] Gear Finisher: Good Melendez MD #### ANICOT #### [facility] [address] [place], [place] [phone] Gear Finisher: Troy Link MD aPTT Coag (Bld) [Time] 78.1 s High 20.5-30.5 [facility] Comment on above: Result Comment: IV Heparin Therapy Range: 48.6-77.8 Performed By: #### C BC, PT, PTT, BMP #### [address] [id number] Gear Finisher: Good Melendez MD #### ANICOT #### [facility] [address] [place], [place] [id number] Gear Finisher: Troy Link MD Basic Metab w/rfx MGon 07-17 (cont.) Normal [facility] Comment on above: Result Comment: Aver age GFR for 50-59 years old: 93 mL/min/1.73sq m Chronic Kidney Disease: <60 mL/min/1.73sq m Kidney failure: <15 mL/min/1.73sq m eGFR calculated using average adult body mass. Additional eGFR calculator available at: http://www.[employer].TableGrabber/multiple_crcl_2011.htm Performed By: #### C BC, PT, PTT, BMP #### [address] [phone] Gear Finisher: Good Melendez MD #### ANAPARNAT #### [facility] [address] [place] [address] Gear Finisher: Troy Link MD Anion gap [Moles/Vol] 9 mmol/L Normal 9-17 [facility] Comment on above: Performed By: #### C BC, PT, PTT, BMP #### [facility] [address] [place] [id number] Gear Finisher: Good Melendez MD #### ANICOT #### [facility] [address] [place] [address] Gear Finisher: Troy Link MD Calcium [Mass/Vol] 9.3 mg/dL Normal 8.6-10.4 [facility] Comment on above: Performed By: #### C BC, PT, PTT, BMP #### [address] [address] Gear Finisher: Good Melendez MD #### ANICOT #### [facility] [address] [place] [address] Gear Finisher: Troy Link MD Chloride [Moles/Vol] 106 mmol/L Normal 98-107 [facility] Comment on above: Performed By: #### C BC, PT, PTT, BMP #### [address] [address] Gear Finisher: Good Melendez MD #### ANICOT #### [address] [address] Gear Finisher: Troy Link MD CO2 [Moles/Vol] 23 mmol/L Normal 20-31 [facility] Comment on above: Performed By: #### C BC, PT, PTT, BMP #### [address] [address] Gear Finisher: Good Melendez MD #### ANICOT #### [facility] [address] [place] [address] Gear Finisher: Troy Link MD Creatinine [Mass/Vol] 1.40 mg/dL High 0.70-1.20 [facility] Comment on above: Performed By: #### C BC, PT, PTT, BMP #### [address] [address] Gear Finisher: Good Melendez MD #### ANICOT #### [facility] [address] [place] [address] Gear Finisher: Troy Link MD GFR, Amer >60 Normal >60 [facility] Comment on above: Performed By: #### C BC, PT, PTT, BMP #### [address] [place] [address] Gear Finisher: Good Melendez MD #### ANICOT #### [facility] [address] [place] [address] Gear Finisher: Troy Link MD GFR,non Amer 52 mL/min Low >60 [facility] Comment on above: Performed By: #### C BC, PT, PTT, BMP #### [address] [address] Gear Finisher: Good Melendez MD #### ANICOT #### [facility] [address] [place] [address] Gear Finisher: Troy Link MD Glucose [Mass/Vol] 170 mg/dL High 70-99 [facility] Comment on above: Performed By: #### C BC, PT, PTT, BMP #### [address] [address] Gear Finisher: Good Melendez MD #### ANICOT #### [facility] [address] [place] [address] Gear Finisher: Troy Link MD Potassium [Moles/Vol] 4.6 mmol/L Normal 3.7-5.3 [facility] Comment on above: Performed By: #### C BC, PT, PTT, BMP #### [address] [address] Gear Finisher: Good Melendez MD #### ANICOT #### [facility] [address] [place] [address] Gear Finisher: Troy Link MD Sodium [Moles/Vol] 138 mmol/L Normal 135-144 [facility] Comment on above: Performed By: #### C BC, PT, PTT, BMP #### [facility] [address] [place] [address] Gear Finisher: Good Melendez MD #### ANICOT #### [facility] [address] [place] [address] Gear Finisher: Troy Link MD Urea nitrogen [Mass/Vol] 33 mg/dL High 6-20 [facility] Comment on above: Performed By: #### C BC, PT, PTT, BMP #### [address] [id number] Gear Finisher: Good Melendez MD #### ANICOT #### [facility] [address] [place] [address] Gear Finisher: Troy Link MD Basic Metabolic Profon 07-17 (cont.) Normal [facility] Comment on above: Result Comment: Aver age GFR for 50-59 years old: 93 mL/min/1.73sq m Chronic Kidney Disease: <60 mL/min/1.73sq m Kidney failure: <15 mL/min/1.73sq m eGFR calculated using average adult body mass. Additional eGFR calculator available at: http://www.[employer].com/multiple_crcl_2011.htm Performed By: #### C BC, PT, PTT, BMP #### [address] [id number] Gear Finisher: Good Melendez MD #### ANICOT #### [facility] [address] [place], [place] [id number] Gear Finisher: Troy Link MD Anion gap [Moles/Vol] 8 mmol/L Low 9-17 [facility] Comment on above: Performed By: #### C BC, PT, PTT, BMP #### [address] [address] Gear Finisher: Good Melendez MD #### ANICOT #### [facility] [address] [place], [place] [id number] Gear Finisher: Troy Link MD Calcium [Mass/Vol] 9.5 mg/dL Normal 8.6-10.4 [facility] Comment on above: Performed By: #### C BC, PT, PTT, BMP #### [address] [address] Gear Finisher: Good Melendez MD #### ANICOT #### [facility] [address] [place], [place] [id number] Gear Finisher: Troy Link MD Chloride [Moles/Vol] 104 mmol/L Normal 98-107 [facility] Comment on above: Performed By: #### C BC, PT, PTT, BMP #### [address] [id number] Gear Finisher: Good Melendez MD #### ANICOT #### [facility] [address] [place], [place] [id number] Gear Finisher: Troy Link MD CO2 [Moles/Vol] 23 mmol/L Normal 20-31 [facility] Comment on above: Performed By: #### C BC, PT, PTT, BMP #### [address] [address] Gear Finisher: Good Melendez MD #### ANICOT #### [facility] [address] [place] [address] Gear Finisher: Troy Link MD Creatinine [Mass/Vol] 1.34 mg/dL High 0.70-1.20 [facility] Comment on above: Performed By: #### C BC, PT, PTT, BMP #### [address] [address] Gear Finisher: Good Melendez MD #### ANICOT #### [facility] [address] [place] [address] Gear Finisher: Troy Link MD GFR, Amer >60 Normal >60 [facility] Comment on above: Performed By: #### C BC, PT, PTT, BMP #### [address] [id number] Gear Finisher: Good Melendez MD #### ANICOT #### [facility] [address] [place], [place] [id number] Gear Finisher: Troy Link MD GFR,non Amer 55 mL/min Low >60 [facility] Comment on above: Performed By: #### C BC, PT, PTT, BMP #### [address] [id number] Gear Finisher: Good Melendez MD #### ANICOT #### [facility] [address] [place] [address] Gear Finisher: Troy Link MD Glucose [Mass/Vol] 136 mg/dL High 70-99 [facility] Comment on above: Performed By: #### C BC, PT, PTT, BMP #### [address] [phone] Gear Finisher: Good Melendez MD #### ANICOT #### [facility] [address] [place] [address] Gear Finisher: Troy Link MD Potassium [Moles/Vol] 4.7 mmol/L Normal 3.7-5.3 [facility] Comment on above: Performed By: #### C BC, PT, PTT, BMP #### [address] [address] Gear Finisher: Good Melendez MD #### ANICOT #### [facility] [address] [place], [place] [id number] Gear Finisher: Troy Link MD Sodium [Moles/Vol] 135 mmol/L Normal 135-144 [facility] Comment on above: Performed By: #### C BC, PT, PTT, BMP #### [facility] [address] [place] [address] Gear Finisher: Good Melendez MD #### ANICOT #### [facility] [address] [place] [address] Gear Finisher: Troy Link MD Urea nitrogen [Mass/Vol] 31 mg/dL High 6-20 [facility] Comment on above: Performed By: #### C BC, PT, PTT, BMP #### [address] [address] Gear Finisher: Good Melendez MD #### ANICOT #### [facility] [address] [place], [place] [id number] Gear Finisher: Troy Link MD Fibrinogenon 07-17-2021 Fibrinogen 404 mg/dL Normal 140-420 [facility] Comment on above: Performed By: #### C BC, PT, PTT, BMP #### [address] [address] Gear Finisher: Good Melendez MD #### ANICOT #### [facility] [address] [place], [place] [id number] Gear Finisher: Troy Link MD Fibrinogen 395 mg/dL Normal 140-420 [facility] Comment on above: Performed By: #### C BC, PT, PTT, BMP #### [facility] [address] [place] [address] Gear Finisher: Good Melendez MD #### ANICOT #### [facility] [address] [place] [address] Gear Finisher: Troy Link MD Hemoglobin A1Con 07-17-2021 Glucose [Mass/Vol] 169 mg/dL Normal [facility] Comment on above: Result Comment: The ADA and AACC recommend providing the estimated average glucose result to permit better patient understanding of their HBA1c result. Performed By: #### C BC, PT, PTT, BMP #### [email or web address] [address] [place] [address] Gear Finisher: Good Melendez MD #### ANICOT #### [facility] [address] [place], [place] [id number] Gear Finisher: Troy Link MD HbA1c (Bld) [Mass fraction] 7.5 % High 4.0-6.0 [facility] Comment on above: Performed By: #### C BC, PT, PTT, BMP #### [email or web address] [address] [place] [address] Gear Finisher: Good Melendez MD #### ANICOT #### [facility] [address] [place] [address] Gear Finisher: Troy Link MD PTon 07-17-2021 INR Coag (PPP) [Relative time] 1.2 {INR} Normal [facility] Comment on above: Result Comment: Therapeutic Range: Moderate Anticoagulant Intensity: INR = 2.0-3.0 High Anticoagulant Intensity: INR = 2.5-3.5 Performed By: #### C BC, PT, PTT, BMP #### [facility] [address] [place] [address] Gear Finisher: Good Melendez MD #### ANICOT #### [facility] [address] [place], [place] [id number] Gear Finisher: Troy Link MD PT Coag (PPP) [Time] 12.6 s High 9.1-12.3 [facility] Comment on above: Performed By: #### C BC, PT, PTT, BMP #### [facility] [address] [place] [address] Gear Finisher: Good Melendez MD #### ANICOT #### [facility] [address] [place], [place] [id number] Gear Finisher: Troy Link MD Troponinon 07-17-2021 Troponin, High Sens 38 ng/L High 0-22 [facility] Comment on above: Result Comment: High Sensitivity Troponin values cannot be compared with other Troponin methodologies. Patients with high levels of Biotin oral intake (i.e >5mg/day) may have falsely decreased Troponin levels. Samples collected within 8 hours of biotin intake may require additional information for diagnosis. Performed By: #### C BC, PT, PTT, BMP #### [facility] [address] [place] [address] Gear Finisher: Good Melendez MD #### ANICOT #### [facility] [address] [place], [place] [id number] Gear Finisher: Troy Link MD APTTon 07-16-2021 aPTT Coag (Bld) [Time] 51.1 s High 20.5-30.5 [facility] Comment on above: Result Comment: IV Heparin Therapy Range: 48.6-77.8 Performed By: #### C BC, PT, PTT, BMP #### [facility] [address] [place] [address] Gear Finisher: Good Melendez MD #### ANICOT #### [facility] [address] [place], [place] [id number] Gear Finisher: Troy Link MD aPTT Coag (Bld) [Time] 31.1 s High 20.5-30.5 [facility] Comment on above: Result Comment: IV Heparin Therapy Range: 48.6-77.8 Performed By: #### C BC, PT, PTT, BMP #### [facility] [address] [place] [address] Gear Finisher: Good Melendez MD #### ANICOT #### [facility] [address] [place], [place] [id number] Gear Finisher: Troy Link MD Brain Natri. Peptideon 07-16 Natriuretic peptide B (Bld) [Mass/Vol] 1492 pg/mL High <300 [facility] Comment on above: Result Comment: An age-independent cutoff point of 300 pg/ml has a 98% negative predictive value excluding acute heart failure. Performed By: #### C BC, PT, PTT, BMP #### [facility] [address] [place] [address] Gear Finisher: Good Melendez MD #### ANICOT #### [facility] [address] [place], [place] [id number] Gear Finisher: Troy Link MD [facility] Erythrocyte distribution width (RBC) [Ratio] 13.6 % Normal 11.8-14.4 [facility] Comment on above: Performed By: #### C BC, PT, PTT, BMP #### [facility] [address] [place] [address] Gear Finisher: Good Melendez MD #### ANICOT #### [facility] [address] [place] [address] Gear Finisher: Troy Link MD Hematocrit (Bld) [Volume fraction] 40.3 % Low 40.7-50.3 [facility] Comment on above: Performed By: #### C BC, PT, PTT, BMP #### [facility] [address] [place] [address] Gear Finisher: Good Melendez MD #### ANICOT #### [facility] [address] [place] [address] Gear Finisher: Troy Link MD Hemoglobin (Bld) [Mass/Vol] 13.0 g/dL Normal 13.0-17.0 [facility] Comment on above: Performed By: #### C BC, PT, PTT, BMP #### [facility] [address] [place] [phone] Gear Finisher: Good Melendez MD #### ANICOT #### [facility] [address] [place] [address] Gear Finisher: Troy Link MD MCH (RBC) [Entitic mass] 28.7 pg Normal 25.2-33.5 [facility] Comment on above: Performed By: #### C BC, PT, PTT, BMP #### [address] [address] Gear Finisher: Good Melendez MD #### ANICOT #### [facility] [address] [place] [address] Gear Finisher: Troy Link MD MCHC (RBC) [Mass/Vol] 32.3 g/dL Normal 28.4-34.8 [facility] Comment on above: Performed By: #### C BC, PT, PTT, BMP #### [address] [address] Gear Finisher: Good Melendez MD #### ANICOT #### [address] [address] Gear Finisher: Troy Link MD MCV (RBC) [Entitic vol] 89.0 fL Normal 82.6-102.9 [facility] Comment on above: Performed By: #### C BC, PT, PTT, BMP #### [address] [address] Gear Finisher: Good Melendez MD #### ANICOT #### [facility] [address] [place] [address] Gear Finisher: Troy Link MD NRBC Automated 0.0 per 100 WBC Normal 0.0 [facility] Comment on above: Performed By: #### C BC, PT, PTT, BMP #### [address] [address] Gear Finisher: Good Melendez MD #### ANICOT #### [facility] [address] [place] [address] Gear Finisher: Troy Link MD Platelet mean volume (Bld) [Entitic vol] 9.6 fL Normal 8.1-13.5 [facility] Comment on above: Performed By: #### C BC, PT, PTT, BMP #### [address] [address] Gear Finisher: Good Melendez MD #### ANICOT #### [facility] [address] [place] [address] Gear Finisher: Troy Link MD Platelets (Bld) [#/Vol] 203 10*3/uL Normal 138-453 [facility] Comment on above: Performed By: #### C BC, PT, PTT, BMP #### [address] [address] Gear Finisher: Good Melendez MD #### ANICOT #### [facility] [address] [place] [address] Gear Finisher: Troy Link MD RBC (Bld) [#/Vol] 4.53 10*6/uL Normal 4.21-5.77 [facility] Comment on above: Performed By: #### C BC, PT, PTT, BMP #### [address] [address] Gear Finisher: Good Melendez MD #### ANICOT #### [facility] [address] [place] [address] Gear Finisher: Troy Link MD WBC (Bld) [#/Vol] 6.8 10*3/uL Normal 3.5-11.3 [facility] Comment on above: Performed By: #### C BC, PT, PTT, BMP #### [facility] [address] [place] [address] Gear Finisher: Good Melendez MD #### YASSINET #### [facility] [address] [place], [place] [id number] Gear Finisher: Troy Link MD Troponinon 07-16-2021 Troponin, High Sens 59 ng/L Critically high 0-22 [facility] Comment on above: Result Comment: High Sensitivity Troponin values cannot be compared with other Troponin methodologies. Patients with high levels of Biotin oral intake (i.e >5mg/day) may have falsely decreased Troponin levels. Samples collected within 8 hours of biotin intake may require additional information for diagnosis. Performed By: #### C BC, PT, PTT, BMP #### [facility] [address] [place] [address] Gear Finisher: Good Melendez MD #### YASSINET #### [facility] [address] [place] [address] Gear Finisher: Troy Link MD EKG 12 LeadOrdered By: Matias Varela on 05-26-2021 Atrial Rate 108 BPM [employer] Phone: P Simpson -96 degrees [employer] Phone: P-R Interval 192 ms [employer] Phone: Q-T Interval 348 ms [employer] Phone: QRS Duration 94 ms [employer] Phone: QTc Calculation (Bazett) 466 ms [employer] Phone: R Simpson -116 degrees [employer] Phone: T Simpson -114 degrees [employer] Phone: Ventricular Rate 108 BPM [employer] Work Phone: [employer] Phone: EKG 12 Leadon 05-26-2021 Arm lead reversal Sinus Tachycardia V Leads placement error Repeat ECG When compared with ECG of 08-MAY-2021 11:42, Significant changes have occurred PN STV Matias Andrade MD - 05/26/2021 Arm lead reversal Sinus Tachycardia V Leads placement error Repeat ECG When compared with ECG of 08-MAY-2021 11:42, Significant changes have occurred [employer] Work Phone: SURGICAL PATHOLOGY REPORTon 05-26-2021 Surgical [...] with no areas of granularity or masses. Video Specialist sections 1cs. tm Microscopic Description Sections of gastric wall show lamina propria without evidence of significant inflammation. There is no evidence of intestinal metaplasia or dysplasia. There is no evidence of organisms suspicious for Helicobacter with the routine H&E stain. SURGICAL PATHOLOGY CONSULTATION Patient Name: SUKHDEEP SIMENTAL [facility] Rec: [id number] Path Number: [id number] [facility] ANATOMIC PATHOLOGY [address] [place] [address]. [place], [place] [address] [employer] Basic Metabolic Panelon 03-3 Anion gap [Moles/Vol] 10 mmol/L 9 - 17 mmol/L [employer] Calcium [Mass/Vol] 9.1 mg/dL 8.6 - 10. 4 mg/dL [employer] Chloride [Moles/Vol] 106 mmol/L 98 - 10 7 mmol/L [employer] CO2 [Moles/Vol] 23 mmol/L 20 - 31 mmol/L [facility] Creatinine [Mass/Vol] 1.1 mg/dL 0.70 - 1.20 mg/dL [facility] GFR >60 >60 mL/min [place]ilson GFR Non- >60 >60 mL/min [employer] GFR/1.73 sq M.predicted MDRD (S/P/Bld) [Vol rate/Area] [facility] Comment on above: Average GFR for 50-5 9 years old: 93 mL/min/1.73sq m Chronic Kidney Disease: <60 mL/min/1.73sq m Kidney failure: <15 mL/min/1.73sq m eGFR calculated using average adult body mass. Additional eGFR calculator available at: http://www.[employer]_crcl_2012.htm Glucose [Mass/Vol] 127 mg/dL High 70 - 99 mg/dL [facility] [employer] Interpretation and review of laboratory results Abnormal [employer] Potassium [Moles/Vol] 4.8 mmol/L 3.7 - 5.3 mmol/L [facility] Sodium [Moles/Vol] 139 mmol/L 135 - 144 mmol/L [employer] Urea nitrogen (BldV) [Mass/Vol] 24 mg/dL High 6 - 20 mg/dL [facility] [employer] Basic Metabolic Profon 05-25 (cont.) Normal [facility] Comment on above: Result Comment: Aver age GFR for 50-59 years old: 93 mL/min/1.73sq m Chronic Kidney Disease: <60 mL/min/1.73sq m Kidney failure: <15 mL/min/1.73sq m eGFR calculated using average adult body mass. Additional eGFR calculator available at: http://www.[employer]_crcl_2012.htm Performed By: #### C BC, PT, PTT, BMP #### [facility] [address] [place], [place] [id number] Gear Finisher: Good Melendez MD #### JIMENA #### [facility] [address] [place] [address] Gear Finisher: Troy Link MD Anion gap [Moles/Vol] 10 mmol/L Normal - [facility] Comment on above: Performed By: #### C BC, PT, PTT, BMP #### [facility] [address] [place] [address] Gear Finisher: Good Melendez MD #### ANICOT #### [facility] [address] [place], [place] [id number] Gear Finisher: Troy Link MD Calcium [Mass/Vol] 9.1 mg/dL Normal 8.6-10.4 [facility] Comment on above: Performed By: #### C BC, PT, PTT, BMP #### [address] [address] Gear Finisher: Good Melendez MD #### ANICOT #### [address] [id number] Gear Finisher: Troy Link MD Chloride [Moles/Vol] 106 mmol/L Normal 98-107 [facility] Comment on above: Performed By: #### C BC, PT, PTT, BMP #### [address] [address] Gear Finisher: Good Melendez MD #### ANICOT #### [address] [phone] Gear Finisher: Troy Link MD CO2 [Moles/Vol] 23 mmol/L Normal 20-31 [facility] Comment on above: Performed By: #### C BC, PT, PTT, BMP #### [address] [address] Gear Finisher: Good Melendez MD #### ANICOT #### [facility] [address] [place], [place] [id number] Gear Finisher: Troy Link MD Creatinine [Mass/Vol] 1.10 mg/dL Normal 0.70-1.20 [facility] Comment on above: Performed By: #### C BC, PT, PTT, BMP #### [facility] [address] [place] [address] Gear Finisher: Good Melendez MD #### ANICOT #### [facility] [address] [place], [place] [id number] Gear Finisher: Troy Link MD GFR, Amer >60 Normal >60 [facility] Comment on above: Performed By: #### C BC, PT, PTT, BMP #### [facility] [address] [place] [address] Gear Finisher: Good Melendez MD #### ANICOT #### [facility] [address] [place] [address] Gear Finisher: Troy Link MD GFR,non Amer >60 Normal >60 [facility] Comment on above: Performed By: #### C BC, PT, PTT, BMP #### [address] [address] Gear Finisher: Good Melendez MD #### ANICOT #### [facility] [address] [place] [address] Gear Finisher: Troy Link MD Glucose [Mass/Vol] 127 mg/dL High 70-99 [facility] Comment on above: Performed By: #### C BC, PT, PTT, BMP #### [facility] [address] [place] [address] Gear Finisher: Good Melendez MD #### ANICOT #### [facility] [address] [place] [address] Gear Finisher: Troy Link MD Potassium [Moles/Vol] 4.8 mmol/L Normal 3.7-5.3 [facility] Comment on above: Performed By: #### C BC, PT, PTT, BMP #### [facility] [address] [place] [address] [phone] Gear Finisher: Good Melendez MD #### ANICOT #### [facility] [address] [place] [address] Gear Finisher: Troy Link MD Sodium [Moles/Vol] 139 mmol/L Normal 135-144 [facility] Comment on above: Performed By: #### C BC, PT, PTT, BMP #### [address] [address] Gear Finisher: Good Melendez MD #### ANICOT #### [facility] [address] [place] [address] Gear Finisher: Troy Link MD Urea nitrogen [Mass/Vol] 24 mg/dL High 6-20 [facility] Comment on above: Performed By: #### C BC, PT, PTT, BMP #### [address] [address] Gear Finisher: Good Melendez MD #### ANICOT #### [facility] [address] [place] [address] Gear Finisher: Troy Link [facility] Erythrocyte distribution width (RBC) [Ratio] 13.9 % Normal 11.8-14.4 [facility] Comment on above: Performed By: #### C BC, PT, PTT, BMP #### [facility] [address] [place] [address] Gear Finisher: Good Melendez MD #### ANICOT #### [facility] [address] [place] [address] Gear Finisher: Troy Link MD Hematocrit (Bld) [Volume fraction] 39.5 % Low 40.7-50.3 [facility] Comment on above: Performed By: #### C BC, PT, PTT, BMP #### [address] [address] Gear Finisher: Good Melendez MD #### ANICOT #### [facility] [address] [place] [address] Gear Finisher: Troy Link MD Hemoglobin (Bld) [Mass/Vol] 12.2 g/dL Low 13.0-17.0 [facility] Comment on above: Performed By: #### C BC, PT, PTT, BMP #### [address] [address] Gear Finisher: Good Melendez MD #### ANICOT #### [facility] [address] [place] [address] Gear Finisher: Troy Link MD MCH (RBC) [Entitic mass] 30.2 pg Normal 25.2-33.5 [facility] Comment on above: Performed By: #### C BC, PT, PTT, BMP #### [address] [address] Gear Finisher: Good Melendez MD #### ANICOT #### [facility] [address] [place] [address] Gear Finisher: Troy Link MD MCHC (RBC) [Mass/Vol] 30.9 g/dL Normal 28.4-34.8 [facility] Comment on above: Performed By: #### C BC, PT, PTT, BMP #### [address] [address] Gear Finisher: Good Melendez MD #### ANICOT #### [facility] [address] [place] [address] Gear Finisher: Troy Link MD MCV (RBC) [Entitic vol] 97.8 fL Normal 82.6-102.9 [facility] Comment on above: Performed By: #### C BC, PT, PTT, BMP #### [address] [address] Gear Finisher: Good Melendez MD #### ANICOT #### [facility] [address] [place] [address] Gear Finisher: Troy Link MD NRBC Automated 0.0 per 100 WBC Normal 0.0 [facility] Comment on above: Performed By: #### C BC, PT, PTT, BMP #### [address] [address] Gear Finisher: Good Melendez MD #### ANICOT #### [facility] [address] [place], [place] [id number] Gear Finisher: Troy Link MD Platelet mean volume (Bld) [Entitic vol] 8.8 fL Normal 8.1-13.5 [facility] Comment on above: Performed By: #### C BC, PT, PTT, BMP #### [address] [address] Gear Finisher: Good Melendez MD #### ANICOT #### [facility] [address] [place] [address] Gear Finisher: Troy Link MD Platelets (Bld) [#/Vol] 263 10*3/uL Normal 138-453 [facility] Comment on above: Performed By: #### C BC, PT, PTT, BMP #### [address] [address] Gear Finisher: Good Melendez MD #### ANICOT #### [facility] [address] [place], [place] [id number] Gear Finisher: Troy Link MD RBC (Bld) [#/Vol] 4.04 10*6/uL Low 4.21-5.77 [facility] Comment on above: Performed By: #### C BC, PT, PTT, BMP #### [facility] [address] [place], [place] [id number] Gear Finisher: Good Melendez MD #### ANAPARNAT #### [facility] [address] [place], [place] [id number] Gear Finisher: Troy Link MD WBC (Bld) [#/Vol] 10.8 10*3/uL Normal 3.5-11.3 [facility] Comment on above: Performed By: #### C BC, PT, PTT, BMP #### [facility] [address] [place] [address] Gear Finisher: Good Melendez MD #### ANICOT #### [facility] [address] [place] [address] Gear Finisher: Troy Link MD Hematocrit (Bld) [Volume fraction] 39.5 % Low 40.7 - 50.3 % [facility] Hemoglobin.gastroint estinal spec 1 Ql (Stl) 12.2 g/dL Low 13.0 - 17.0 g/dL [facility] Interpretation and review of laboratory results Abnormal [facility] MCH (RBC) [Entitic mass] 30.2 pg 25.2 - 33.5 pg [facility] MCHC (RBC) [Mass/Vol] 30.9 g/dL 28.4 - 34.8 g/dL [facility] MCV (RBC) [Entitic vol] 97.8 fL 82.6 - 102.9 fL [facility] NRBC Automated 0.0 0.0 per 100 WBC [facility] Platelet distribution width (Bld) [Ratio] 13.9 % 11.8 - 14.4 % [facility] Platelet mean volume (Bld) [Entitic vol] 8.8 fL 8.1 - 13.5 fL [facility] Platelets (Bld) [#/Vol] 263 10*3/uL [facility] RBC (Bld) [#/Vol] 4.04 10*6/uL Low 4.21 - 5.7 7 m/uL [facility] WBC (Bld) [#/Vol] 10.8 10*3/uL [facility] Magnesiumon 05-25-2021 Magnesium [Mass/Vol] 1.9 mg/dL Normal 1.6-2.6 [facility] Comment on above: Performed By: #### C BC, PT, PTT, BMP #### [facility] [place], [place] [id number] Gear Finisher: Good Melendez MD #### ANICOT #### [facility] [address] [place] [address] Gear Finisher: Troy Link MD Magnesium [Mass/Vol] 1.9 mg/dL 1.6 - 2 .6 mg/dL [facility] Surgical Pathologyon 022 Surgical Pathology (NOTE) -- [...] with no areas of granularity or masses. Video Specialist sections 1cs. tm Microscopic Description Sections of gastric wall show lamina propria without evidence of significant inflammation. There is no evidence of intestinal metaplasia or dysplasia. There is no evidence of organisms suspicious for Helicobacter with the routine CANDY stain. SURGICAL PATHOLOGY CONSULTATION Patient Name: SUKHDEEP SIMENTAL [facility] Rec: [id number] Path Number: [id number] [facility] ANATOMIC PATHOLOGY [address] [place] [id number] Normal [facility] Comment on above: Performed By: #### C BC, PT, PTT, BMP #### [facility] [place], [place] [id number] Gear Finisher: Good Melendez MD #### ANICOT #### [facility] [address] [place] [address] Gear Finisher: Troy Link MD Basic Metabolic Panelon 04-27 Anion gap [Moles/Vol] 13 mmol/L 9 - 17 mmol/L [facility] Calcium [Mass/Vol] 9.1 mg/dL 8.6 - 10. 4 mg/dL [facility] Chloride [Moles/Vol] 102 mmol/L 98 - 10 7 mmol/L [facility] CO2 [Moles/Vol] 17 mmol/L Low 20 - 31 mmol/L [facility] Creatinine [Mass/Vol] 1.16 mg/dL 0.70 - 1.20 mg/dL [facility] GFR >60 >60 mL/min [place] GFR Non- >60 >60 mL/min [facility] GFR/1.73 sq M.predicted MDRD (S/P/Bld) [Vol rate/Area] [facility] Comment on above: Average GFR for 50-5 9 years old: 93 mL/min/1.73sq m Chronic Kidney Disease: <60 mL/min/1.73sq m Kidney failure: <15 mL/min/1.73sq m eGFR calculated using average adult body mass. Additional eGFR calculator available at: http://www.[employer]/multiple_crcl_2012.htm Glucose [Mass/Vol] 203 mg/dL High 70 - 99 mg/dL [facility] Interpretation and review of laboratory results Abnormal [facility] Potassium [Moles/Vol] 4.2 mmol/L 3.7 - 5.3 mmol/L [facility] Sodium [Moles/Vol] 132 mmol/L Low 135 - 144 mmol/L [facility] Urea nitrogen (BldV) [Mass/Vol] 29 mg/dL High 6 - 20 mg/dL [facility] Basic Metabolic Profon 05-24 (cont.) Normal [facility] Comment on above: Result Comment: Aver age GFR for 50-59 years old: 93 mL/min/1.73sq m Chronic Kidney Disease: <60 mL/min/1.73sq m Kidney failure: <15 mL/min/1.73sq m eGFR calculated using average adult body mass. Additional eGFR calculator available at: http://www.[employer]/multiple_crcl_2012.htm Performed By: #### C BC, BMP #### [address] [address] Gear Finisher: Good Melendez MD Anion gap [Moles/Vol] 13 mmol/L Normal 9-17 [facility] Comment on above: Performed By: #### C BC, BMP #### [address] [address] Gear Finisher: Good Melendez MD Calcium [Mass/Vol] 9.1 mg/dL Normal 8.6-10.4 [facility] Comment on above: Performed By: #### C JASE, BMP #### [address] [address] Gear Finisher: Good Melendez MD Chloride [Moles/Vol] 102 mmol/L Normal 98-107 [facility] Comment on above: Performed By: #### C BC, BMP #### [address] [address] Gear Finisher: Good Melendez MD CO2 [Moles/Vol] 17 mmol/L Low 20-31 [facility] Comment on above: Performed By: #### C BC, BMP #### [address] [address] Gear Finisher: Good Melendez MD Creatinine [Mass/Vol] 1.16 mg/dL Normal 0.70-1.20 [facility] Comment on above: Performed By: #### C BC, BMP #### [address] [address] Gear Finisher: Good Melendez MD GFR, Amer >60 Normal >60 [facility] Comment on above: Performed By: #### C BC, BMP #### [facility] [address] [place] [address] Gear Finisher: Good Melendez MD GFR,non Amer >60 Normal >60 [facility] Comment on above: Performed By: #### C BC, BMP #### [facility] [address] [place] [address] Gear Finisher: Good Melendez MD Glucose [Mass/Vol] 203 mg/dL High 70-99 [facility] Comment on above: Performed By: #### C BC, BMP #### [facility] [address] [place] [address] Gear Finisher: Good Melendez MD Potassium [Moles/Vol] 4.2 mmol/L Normal 3.7-5.3 [facility] Comment on above: Performed By: #### C BC, BMP #### [facility] [address] [place] [address] Gear Finisher: Good Melendez MD Sodium [Moles/Vol] 132 mmol/L Low 135-144 [facility] Comment on above: Performed By: #### C BC, BMP #### [facility] [address] [place] [address] Gear Finisher: Good Melendez MD Urea nitrogen [Mass/Vol] 29 mg/dL High 6-20 [facility] Comment on above: Performed By: #### C BC, BMP #### [facility] [address] [place] [address] Gear Finisher: Good Melendez MD CBCon 05-24-2021 Erythrocyte distribution width (RBC) [Ratio] 14.0 % Normal 11.8-14.4 [facility] Comment on above: Performed By: #### C BC, BMP #### [facility] [address] [place] [address] Gear Finisher: Good Melendez MD Hematocrit (Bld) [Volume fraction] 41.0 % Normal 40.7-50.3 [facility] Comment on above: Performed By: #### C BC, BMP #### [address] [address] Gear Finisher: Good Melendez MD Hemoglobin (Bld) [Mass/Vol] 12.7 g/dL Low 13.0-17.0 [facility] Comment on above: Performed By: #### C BC, BMP #### [facility] [address] [place] [address] Gear Finisher: Good Melendez MD MCH (RBC) [Entitic mass] 29.5 pg Normal 25.2-33.5 [facility] Comment on above: Performed By: #### C JASE, BMP #### [address] [address] Gear Finisher: Good Melendez MD MCHC (RBC) [Mass/Vol] 31.0 g/dL Normal 28.4-34.8 [facility] Comment on above: Performed By: #### C JASE, BMP #### [address] [address] Gear Finisher: Good Melendez MD MCV (RBC) [Entitic vol] 95.3 fL Normal 82.6-102.9 [facility] Comment on above: Performed By: #### C BC, BMP #### [facility] [address] [place] [address] Gear Finisher: Good Melendez MD NRBC Automated 0.0 per 100 WBC Normal 0.0 [facility] Comment on above: Performed By: #### C BC, BMP #### [facility] [address] [place] [phone] Gear Finisher: Good Melendez MD Platelet mean volume (Bld) [Entitic vol] 8.8 fL Normal 8.1-13.5 [facility] Comment on above: Performed By: #### C BC, BMP #### [facility] [address] [place] [address] Gear Finisher: Good Melendez MD Platelets (Bld) [#/Vol] 273 10*3/uL Normal 138-453 [facility] Comment on above: Performed By: #### C BC, BMP #### [facility] [address] [place] [address] Gear Finisher: Good Melendez MD RBC (Bld) [#/Vol] 4.30 10*6/uL Normal 4.21-5.77 [facility] Comment on above: Performed By: #### C JASE, BMP #### [facility] [address] [place] [address] Gear Finisher: Good Melendez MD WBC (Bld) [#/Vol] 9.6 10*3/uL Normal 3.5-11.3 [facility] Comment on above: Performed By: #### C BC, BMP #### [facility] [address] [place] [address] Gear Finisher: Good Melendez MD CBC without Diffon Hematocrit (Bld) [Volume fraction] 41.0 % 40.7 - 50.3 % [facility] Hemoglobin.gastroint estinal spec 1 Ql (Stl) 12.7 g/dL Low 13.0 - 17.0 g/dL [facility] Interpretation and review of laboratory results Abnormal [facility] MCH (RBC) [Entitic mass] 29.5 pg 25.2 - 33.5 pg [facility] MCHC (RBC) [Mass/Vol] 31.0 g/dL 28.4 - 34.8 g/dL [facility] MCV (RBC) [Entitic vol] 95.3 fL 82.6 - 102.9 fL [facility] NRBC Automated 0.0 0.0 per 100 WBC [facility] Platelet distribution width (Bld) [Ratio] 14.0 % 11.8 - 14.4 % [facility] Platelet mean volume (Bld) [Entitic vol] 8.8 fL 8.1 - 13.5 fL [facility] Platelets (Bld) [#/Vol] 273 10*3/uL [facility] RBC (Bld) [#/Vol] 4.30 10*6/uL 4.21 - 5.7 7 m/uL [facility] WBC (Bld) [#/Vol] 9.6 10*3/uL [facility] COVID-19, Rapidon 05-24-2021 SARS-CoV-2 (COVID-19) RNA MUKUL+probe Ql (Unsp spec) Not detected Not Detected [facility] Comment on above: Rapid NAAT: The specimen [...] management decisions. Fact sheet for Healthcare Providers: https://www.fda.gov/media/044200/download Fact sheet for Patients: https://www.fda.gov/media/089654/download Methodology: Isothermal Nucleic Acid Amplification Specimen Description .NASOPHARYNGEAL SWAB [facility] Calcium, Ionicon 05-24-2021 Calcium [Moles/Vol] 1.31 mmol/L Normal 1.13-1.33 [facility] Comment on above: Performed By: #### I OCSETH MG, BRITTANIE #### [facility] [place] [address] Gear Finisher: Good Melendez MD Calcium, Ionizedon Calcium [Moles/Vol] 1.31 mmol/L 1.13 - 1 .33 mmol/L [facility] Magnesiumon 05-24-2021 Magnesium [Mass/Vol] 2.0 mg/dL Normal 1.6-2.6 [facility] Comment on above: Performed By: #### C BC, PT, PTT, BMP #### [facility] [address] [place], [place] [id number] Gear Finisher: Good Melendez MD #### ANICOT #### [facility] [address] [place] [address] Gear Finisher: Troy Link MD Magnesium [Mass/Vol] 2.0 mg/dL 1.6 - 2 .6 mg/dL [facility] No Panel Informationon 05-24 [facility] POC Glucose Fingerstickon Glucose [Mass/Vol] 199 mg/dL High 75 - 110 mg/dL [facility] Interpretation and review of laboratory results Abnormal [facility] Glucose [Mass/Vol] 209 mg/dL High 75 - 110 mg/dL [facility] Interpretation and review of laboratory results Abnormal [facility] POCT Glucoseon 05-24-2021 Glucose [Mass/Vol] 150 mg/dL High 74 - 100 mg/dL [facility] Interpretation and review of laboratory results Abnormal [facility] POTASSIUM (POC)on 05-24-2021 Potassium [Moles/Vol] 3.9 mmol/L 3.5 - 4.5 mmol/L [facility] Phosphoruson 05-24-2021 Phosphate [Mass/Vol] 3.8 mg/dL 2.5 - 4 .5 mg/dL [facility] Phosphorus, Inorg.on 022 Phosphorus, Inorg. 3.8 mg/dL Normal 2.5-4.5 [facility] Comment on above: Performed By: #### C BC, PT, PTT, BMP #### [facility] [address] [place], [place] [id number] Gear Finisher: Good Melendez MD #### ANICOT #### [facility] [address] [place] [address] Gear Finisher: Troy Link MD [id number] 05-24-2021 SARS-CoV-2 (COVID-19) RNA MUKUL+probe Ql (Unsp spec) Not detected Normal NOTDET [facility] Comment on above: Result Comment: Rapid [...] management decisions. Fact sheet for Healthcare Providers: https://www.fda.gov/media/255885/download Fact sheet for Patients: https://www.fda.gov/media/270594/download Methodology: Isothermal Nucleic Acid Amplification Performed By: #### C OVRB #### [facility] [address] [place] [address] Gear Finisher: Good Melendez MD Nicotineon 05-11-2021 4-OL-Mupciwyz <2 Normal [facility] Comment on above: Performed By: #### C BC, PT, PTT, BMP #### [facility] [address] [place] [address] Gear Finisher: Good Melendez MD #### ANICOT #### [facility] [address] [place] [address] Gear Finisher: Troy Link MD Cotinine <2 Normal [facility] Comment on above: Performed By: #### C BC, PT, PTT, BMP #### [facility] [address] [place] [address] Gear Finisher: Good Melendez MD #### ANICOT #### [facility] [address] [place] [address] Gear Finisher: Troy Link MD Nicotine <2 Normal [facility] Comment on above: Result Comment: (NOT [...] developed and its performance characteristics determined by [facility]. It has not been cleared or approved by the [place] Food and Drug Administration. This test was performed in a CLIA certified laboratory and is intended for clinical purposes. Performed By: [facility] [address] [place] [address] Secy: Ayse Diaz MD Performed By: #### C BC, PT, PTT, BMP #### [facility] [address] Gear Finisher: Good Melendez MD #### ANICOT #### [facility] [address] [place] [address] Gear Finisher: Troy Link MD Nicotine, Bloodon 05-11-2021 3-PH-Qolpawpm <2 ng/mL [facility] h Cotinine <2 ng/mL [facility] Nicotine <2 ng/mL [facility] Comment on above: (NOTE) Consistent with abstinence [...] developed and its performance characteristics determined by [facility]. It has not been cleared or approved by the [place] Food and Drug Administration. This test was performed in a CLIA certified laboratory and is intended for clinical purposes. Performed By: [facility] [address] [place] [id number] Secy: Ayse Diaz MD [facility] EKG 12 LeadOrdered By: Unkno wn Result on 05-09-2021 Atrial Rate 122 BPM [facility] P Simpson 55 degrees [facility] P-R Interval 164 ms [facility] Q-T Interval 298 ms [facility] QRS Duration 84 ms [facility] QTc Calculation (Bazett) 424 ms [facility] R Simpson -11 degrees TUBE T Simpson 42 degrees [facility] Ventricular Rate 122 BPM [facility] alth [facility] EKG 12 Leadon 05-09-2021 Sinus tachycardia Otherwise normal ECG No previous ECGs available [facility] Result, Unknown Provider - 05/09/2021 Sinus tachycardia Otherwise normal ECG No previous ECGs available [facility] Work Phone: XR CHEST (2 VW)on 05-09-2021 [...] Singh Calero MD 05/09/21 Final result Normal [facility] No acute airspace disease identified. [facility] EXAMINATION: TWO XRAY VIEWS OF [...] effusion. No acute osseous abnormality is identified. [facility] Singh Calero MD - 05/09/2021 [...] identified. IMPRESSION: No acute airspace disease identified. [facility] Work Phone: XR CHEST (2 VW)Ordered By: Carlos Calero on 05-09-2021 [facility] Work Phone: APTTon 05-08-2021 aPTT Coag (Bld) [Time] 23.1 s Normal 20.5-30.5 [facility] Comment on above: Result Comment: IV Heparin Therapy Range: 48.6-77.8 Performed By: #### C BC, PT, PTT, BMP #### [facility] [address] [place], [place] [id number] Gear Finisher: Good Melendez MD #### ANICOT #### [facility] [address] [place] [address] Gear Finisher: Troy Link MD aPTT Coag (Bld) [Time] 23.1 s [facility] Comment on above: IV Heparin Therapy Range: 48.6-77.8 Basic Metabolic Panelon 03- Anion gap [Moles/Vol] 15 mmol/L 9 - 17 mmol/L [facility] Calcium [Mass/Vol] 9.4 mg/dL 8.6 - 10. 4 mg/dL [facility] Chloride [Moles/Vol] 103 mmol/L 98 - 10 7 mmol/L [facility] CO2 [Moles/Vol] 19 mmol/L Low 20 - 31 mmol/L [facility] Creatinine [Mass/Vol] 1.59 mg/dL High 0.70 - 1.20 mg/dL [facility] GFR 55 mL/min Low >60 [facility] GFR Non- 45 mL/min Low >60 [facility] GFR/1.73 sq M.predicted MDRD (S/P/Bld) [Vol rate/Area] [facility] Comment on above: Average GFR for 50-5 9 years old: 93 mL/min/1.73sq m Chronic Kidney Disease: <60 mL/min/1.73sq m Kidney failure: <15 mL/min/1.73sq m eGFR calculated using average adult body mass. Additional eGFR calculator available at: http://www.[employer]_crcl_2012.htm Glucose [Mass/Vol] 141 mg/dL High 70 - 99 mg/dL [facility] Interpretation and review of laboratory results Abnormal [facility] Potassium [Moles/Vol] 5.3 mmol/L 3.7 - 5.3 mmol/L [facility] Sodium [Moles/Vol] 137 mmol/L 135 - 144 mmol/L [facility] Urea nitrogen (BldV) [Mass/Vol] 37 mg/dL High 6 - 20 mg/dL [facility] Basic Metabolic Profon 05-08 (cont.) Normal [facility] Comment on above: Result Comment: Aver age GFR for 50-59 years old: 93 mL/min/1.73sq m Chronic Kidney Disease: <60 mL/min/1.73sq m Kidney failure: <15 mL/min/1.73sq m eGFR calculated using average adult body mass. Additional eGFR calculator available at: http://www.[employer]/multiple_crcl_2012.htm Performed By: #### C BC, PT, PTT, BMP #### [facility] [place] [address] Gear Finisher: Good Melendez MD #### ANICOT #### [facility] [address] [place], [place] [id number] Gear Finisher: Troy Link MD Anion gap [Moles/Vol] 15 mmol/L Normal 9-17 [facility] Comment on above: Performed By: #### C BC, PT, PTT, BMP #### [address] [address] Gear Finisher: Good Melendez MD #### ANICOT #### [facility] [address] [place], [place] [id number] Gear Finisher: Troy Link MD Calcium [Mass/Vol] 9.4 mg/dL Normal 8.6-10.4 [facility] Comment on above: Performed By: #### C BC, PT, PTT, BMP #### [address] [address] Gear Finisher: Good Melendez MD #### ANICOT #### [facility] [address] [place] [address] Gear Finisher: Troy Link MD Chloride [Moles/Vol] 103 mmol/L Normal 98-107 [facility] Comment on above: Performed By: #### C BC, PT, PTT, BMP #### [address] [address] Gear Finisher: Good Melendez MD #### ANICOT #### [facility] [address] [place] [address] Gear Finisher: Troy Link MD CO2 [Moles/Vol] 19 mmol/L Low 20-31 [facility] Comment on above: Performed By: #### C BC, PT, PTT, BMP #### [facility] [place] [address] Gear Finisher: Good Melendez MD #### ANICOT #### [facility] [address] [place], [place] [id number] Gear Finisher: Troy Link MD Creatinine [Mass/Vol] 1.59 mg/dL High 0.70-1.20 [facility] Comment on above: Performed By: #### C BC, PT, PTT, BMP #### [facility] [address] [place] [address] Gear Finisher: Good Melendez MD #### ANICOT #### [facility] [address] [place] [address] Gear Finisher: Troy Link MD GFR, Amer 55 mL/min Low >60 [facility] Comment on above: Performed By: #### C BC, PT, PTT, BMP #### [facility] [address] [place] [address] Gear Finisher: Good Melendez MD #### ANICOT #### [facility] [address] [place], [place] [id number] Gear Finisher: Troy Link MD GFR,non Amer 45 mL/min Low >60 [facility] Comment on above: Performed By: #### C BC, PT, PTT, BMP #### [facility] [address] [place] [address] Gear Finisher: Good Melendez MD #### ANICOT #### [facility] [address] [place] [address] Gear Finisher: Troy Link MD Glucose [Mass/Vol] 141 mg/dL High 70-99 [facility] Comment on above: Performed By: #### C BC, PT, PTT, BMP #### [facility] [address] [place], [place] [address], [place] [address] Gear Finisher: Good Melendez MD #### ANICOT #### [facility] [address] [place] [address] Gear Finisher: Troy Link MD Potassium [Moles/Vol] 5.3 mmol/L Normal 3.7-5.3 [facility] Comment on above: Performed By: #### C BC, PT, PTT, BMP #### [address] [id number] Gear Finisher: Good Melendez MD #### ANICOT #### [address] [address] Gear Finisher: Troy Link MD Sodium [Moles/Vol] 137 mmol/L Normal 135-144 [facility] Comment on above: Performed By: #### C BC, PT, PTT, BMP #### [address] [address] Gear Finisher: Good Melendez MD #### ANICOT #### [address] [address] Gear Finisher: Troy Link MD Urea nitrogen [Mass/Vol] 37 mg/dL High 6-20 [facility] Comment on above: Performed By: #### C BC, PT, PTT, BMP #### [address] [address] Gear Finisher: Good Melendez MD #### ANICOT #### [facility] [address] [place] [address] Gear Finisher: Troy Link MD CBCon 05-08-2021 Erythrocyte distribution width (RBC) [Ratio] 14.1 % Normal 11.8-14.4 [facility] Comment on above: Performed By: #### C BC, PT, PTT, BMP #### [address] [place] [address] Gear Finisher: Good Melendez MD #### ANICOT #### [facility] [address] [place] [address] Gear Finisher: Troy Link MD Hematocrit (Bld) [Volume fraction] 43.6 % Normal 40.7-50.3 [facility] Comment on above: Performed By: #### C BC, PT, PTT, BMP #### [facility] [address] [place] [address] Gear Finisher: Good Melendez MD #### ANICOT #### [facility] [address] [place] [address] Gear Finisher: Troy Link MD Hemoglobin (Bld) [Mass/Vol] 13.5 g/dL Normal 13.0-17.0 [facility] Comment on above: Performed By: #### C BC, PT, PTT, BMP #### [address] [address] Gear Finisher: Good Melendez MD #### ANICOT #### [facility] [address] [place] [address] Gear Finisher: Troy Link MD MCH (RBC) [Entitic mass] 29.4 pg Normal 25.2-33.5 [facility] Comment on above: Performed By: #### C BC, PT, PTT, BMP #### [address] [address] Gear Finisher: Good Melendez MD #### ANICOT #### [facility] [address] [place] [address] Gear Finisher: Troy Link MD MCHC (RBC) [Mass/Vol] 31.0 g/dL Normal 28.4-34.8 [facility] Comment on above: Performed By: #### C BC, PT, PTT, BMP #### [facility] [place] [address] Gear Finisher: Good Melendez MD #### ANICOT #### [facility] [address] [place], [place] [id number] Gear Finisher: Troy Link MD MCV (RBC) [Entitic vol] 95.0 fL Normal 82.6-102.9 [facility] Comment on above: Performed By: #### C BC, PT, PTT, BMP #### [address] [id number] Gear Finisher: Good Melendez MD #### ANICOT #### [facility] [address] [place] [address] Gear Finisher: Troy Link MD NRBC Automated 0.0 per 100 WBC Normal 0.0 [facility] Comment on above: Performed By: #### C BC, PT, PTT, BMP #### [address] [address] Gear Finisher: Good Melendez MD #### ANICOT #### [facility] [address] [place] [address] Gear Finisher: Troy Link MD Platelet mean volume (Bld) [Entitic vol] 8.7 fL Normal 8.1-13.5 [facility] Comment on above: Performed By: #### C BC, PT, PTT, BMP #### [address] [address] Gear Finisher: Good Melendez MD #### ANICOT #### [facility] [address] [place] [address] Gear Finisher: Troy Link MD Platelets (Bld) [#/Vol] 279 10*3/uL Normal 138-453 [facility] Comment on above: Performed By: #### C BC, PT, PTT, BMP #### [facility] [place], [place] [id number] Gear Finisher: Good Melendez MD #### ANICOT #### [facility] [address] [place], [place] [id number] Gear Finisher: Troy Link MD RBC (Bld) [#/Vol] 4.59 10*6/uL Normal 4.21-5.77 [facility] Comment on above: Performed By: #### C BC, PT, PTT, BMP #### [facility] [address] [place] [address] [id number] Gear Finisher: Good Melnedez MD #### ANICOT #### [facility] [address] [place], [place] [id number] Gear Finisher: Troy Link MD WBC (Bld) [#/Vol] 8.9 10*3/uL Normal 3.5-11.3 [facility] Comment on above: Performed By: #### C BC, PT, PTT, BMP #### [facility] [address] [place] [address] [phone] Gear Finisher: Good Melendez MD #### ANICOT #### [facility] [address] [place], [place] [id number] Gear Finisher: Troy Link MD Hematocrit (Bld) [Volume fraction] 43.6 % 40.7 - 50.3 % [facility] Hemoglobin.gastroint estinal spec 1 Ql (Stl) 13.5 g/dL 13.0 - 17.0 g/dL [facility] MCH (RBC) [Entitic mass] 29.4 pg 25.2 - 33.5 pg [facility] [employer] MCHC (RBC) [Mass/Vol] 31.0 g/dL 28.4 - 34.8 g/dL [facility] MCV (RBC) [Entitic vol] 95.0 fL 82.6 - 102.9 fL [facility] [employer] NRBC Automated 0.0 0.0 per 100 WBC [facility] Platelet distribution width (Bld) [Ratio] 14.1 % 11.8 - 14.4 % [facility] Platelet mean volume (Bld) [Entitic vol] 8.7 fL 8.1 - 13.5 fL [facility] Platelets (Bld) [#/Vol] 279 10*3/uL [facility] RBC (Bld) [#/Vol] 4.59 10*6/uL 4.21 - 5.7 7 m/uL [facility] WBC (Bld) [#/Vol] 8.9 10*3/uL [facility] No Panel Informationon 05-08 [facility] PTon 05-08-2021 INR Coag (PPP) [Relative time] 1.1 {INR} Normal [facility] Comment on above: Result Comment: Therapeutic Range: Moderate Anticoagulant Intensity: INR = 2.0-3.0 High Anticoagulant Intensity: INR = 2.5-3.5 Performed By: #### C BC, PT, PTT, BMP #### [facility] [address] [place] [id number] Gear Finisher: Good Melendez MD #### ANICOT #### [facility] [address] [place] [address] Gear Finisher: Troy Link MD PT Coag (PPP) [Time] 11.2 s Normal 9.1-12.3 [facility] Comment on above: Performed By: #### C BC, PT, PTT, BMP #### [facility] [address] [place] [id number] Gear Finisher: Good Melendez MD #### ANICOT #### [facility] [address] [place] [address] Gear Finisher: Troy Link MD Protime-INRon 05-08-2021 INR Coag (Bld) [Relative time] 1.1 {INR} [facility] Comment on above: Therapeutic Range: Moderate Anticoagulant Intensity: INR = 2.0-3.0 High Anticoagulant Intensity: INR = 2.5-3.5 PT Coag (PPP) [Time] 11.2 s [facility] XR CHEST (2 VW)on 05-08-2021 Radiology Study observation (narrative) TUBE Work Phone: CT LUMBAR SPINE W CONTRASTon 02-28-2021 CT LUMBAR SPINE W CONTRAST [facility] Department of Radiology [address] [place] [address] ======== Patient Name: SUKHDEEP SIMENTAL : 1965 Sex: M Age: Race: White Pt. Location: Patient Status: D Ordered Date: 02/13/2021 9:35:00 AM Completed Date: 02/28/2021 02:00 PM Requesting Provider: JASON MILLER Attending Provider: JASON MILLER Report Copy To: Signs & Symptoms: Z98.1 Arthrodesis status I10 History: [place] Comments: Exam: CT LUMBAR SPINE W CONTRAST [...] above Electronically signed: Petar Mg. Transcribed by: [email or web address], User Resident: Electronically Signed by: PETAR MG @ 03/01/2021 02:21 PM Normal The [facility] LUMBAR MYELOGRAMon 2 LUMBAR MYELOGRAM [facility] Department of Radiology [address] [place] [phone] ======== Patient Name: SUKHDEEP SIMENTAL : 1965 Sex: M Age: Race: White Pt. Location: 84 Patient Status: O Ordered Date: 02/13/2021 9:35:00 AM Completed Date: 02/28/2021 02:06 PM Requesting Provider: JASON MILLER Attending Provider: JASON MILLER Report Copy To: Signs & Symptoms: Z98.1 Arthrodesis status I10 History: [phone] Is patient on thinners? Eliquis hold 48hrs. 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 Consent was obtained. Timeout: [place]ow protocol timeout verification performed. PROCEDURE: Estimated blood [...] report. Electronically signed: Petar Mg. Transcribed by: [email or web address], User Resident: OCHOA HONG Electronically Signed by: PETAR MG @ 02/28/2021 03:13 PM I personally read this/these film(s) with this resident Normal The [facility] LUMBAR SPINE 4 OR 5 [facility] LUMBAR SPINE 4 OR 5 [facility] Department of Radiology [address] [place] [phone] ======== Patient Name: SUKHDEEP SIMENTAL : 1965 Sex: M Age: Race: White Pt. Location: Patient Status: D Ordered Date: 02/01/2021 1:05:00 PM Completed Date: 02/01/2021 01:12 PM Requesting Provider: JASON MILLER Attending Provider: JASON MILLER Report Copy To: Signs & Symptoms: M54.16 Radiculopathy, lumbar region I10 History: [place] Comments: Views (X-RAY, LUMBAR SPINE): AP, Lateral, [...] Osteopenia. Electronically signed: Ahsan Farmer. Transcribed by: [email or web address], User Resident: Electronically Signed by: AHSAN FARMER @ 02/02/2021 10:14 AM Normal [facility] Comment on above: Order Comment: Views (X-RAY, LUMBAR SPINE): AP, Lateral, L5-S1 Spot, Flexion, Extension C REACTIVE PROTEINon 021 CRP [Mass/Vol] 9.6 mg/L High 0.0-7.0 [facility] Comment on above: Performed By: #### 6 1405 #### [facility] [address] [place] [address], [facility] CBC W/DIFFon 12-15-2020 ABS IMM GRANS 0.1 10*3/uL Normal 0.0-0.2 [facility] Comment on above: Performed By: #### 5 6505, 10933 #### [facility] [address] [place] [address], [facility] ABS NEUTROPHILS 6.1 10*3/uL Normal 1.6-7.6 [facility] Comment on above: Performed By: #### 5 6505, 38165 #### [facility] [address] [place] [address], [place] Basophils (Bld) [#/Vol] 0.1 10*3/uL Normal 0.0-0.2 [facility] Comment on above: Performed By: #### 5 6505, 43655 #### [facility] [address] [place] [address], [place] Basophils/100 WBC (Bld) 0.8 % Normal 0.0-1.0 [facility] Comment on above: Performed By: #### 5 6505, 08054 #### [facility] [address] [place] [address], [place] Eosinophils (Bld) [#/Vol] 0.4 10*3/uL Normal 0.0-0.5 [facility] Comment on above: Performed By: #### 5 6505, 32372 #### [facility] [address] [place] [address], [place] Eosinophils/100 WBC (Bld) 4.1 % Normal 0.0-6.0 [facility] Comment on above: Performed By: #### 5 6505, 24274 #### [facility] [address] [place] [address], [place] Erythrocyte distribution width (RBC) [Ratio] 12.6 % Normal 11.5-15.0 [facility] Comment on above: Performed By: #### 5 6505, 79086 #### [facility] [address] [place] [address], [place] Hematocrit (Bld) [Volume fraction] 40.2 % Normal 39.0-50.0 [facility] Comment on above: Performed By: #### 5 6505, 85311 #### [facility] [address] [place] [address], [facility] Hemoglobin (Bld) [Mass/Vol] 12.6 g/dL Low 13.0-17.0 [facility] Comment on above: Performed By: #### 5 6505, 53864 #### [facility] [address] [place] [address], [facility] IMMATURE GRANS 0.7 % Normal 0.0-1.0 [facility] Comment on above: Performed By: #### 5 6505, 71685 #### [facility] [address] [facility] [place] [place] [address], [facility] Lymphocytes (Bld) [#/Vol] 2.0 10*3/uL Normal 1.2-4.0 [facility] Comment on above: Performed By: #### 5 6505, 69520 #### [facility] [address] [facility] [place] [place] [address], [facility] Lymphocytes/100 WBC (Bld) 20.6 % Normal 20.0-45.0 [facility] Comment on above: Performed By: #### 5 6505, 97263 #### [facility] [address] [facility] [place] [address], [facility] MCH (RBC) [Entitic mass] 30.0 pg Normal 27.0-33.0 [facility] Comment on above: Performed By: #### 5 6505, 40103 #### [facility] [address] [facility] [place] [address], [facility] MCHC (RBC) [Mass/Vol] 31.3 g/dL Low 32.0-35.0 [facility] Comment on above: Performed By: #### 5 6505, 80841 #### [facility] [address] [place] [address], [facility] MCV (RBC) [Entitic vol] 95.7 fL Normal 82.0-98.0 [facility] Comment on above: Performed By: #### 5 6505, 18286 #### [facility] [address] [place] [id number], [facility] Monocytes (Bld) [#/Vol] 1.2 10*3/uL High 0.1-1.0 [facility] Comment on above: Performed By: #### 5 6505, 58028 #### [facility] [address] [place] [id number], [facility] MONOS 11.9 % Normal 5.0-12.0 [facility] Comment on above: Performed By: #### 5 6505, 00359 #### [facility] [address] [place] [id number], [facility] Neutrophils/100 WBC (Bld) 61.9 % Normal 40.0-72.0 [facility] Comment on above: Performed By: #### 5 6505, 18788 #### [facility] [address] [facility] [place] [id number], [facility] Nucleated RBC/100 WBC (Bld) [Ratio] 0 % Normal 0-0 [facility] Comment on above: Performed By: #### 5 6505, 39220 #### [facility] [address] [place] [id number], [place] PLAT CNT 335 10*3/uL Normal 150-[address] [facility] Comment on above: Performed By: #### 5 6505, 10657 #### [facility] [address] [place] [address], [facility] RBC (Bld) [#/Vol] 4.20 10*6/uL Normal 4.20-5.70 [facility] Comment on above: Performed By: #### 5 6505, 00236 #### [facility] [address] WBC (Bld) [#/Vol] 9.86 10*3/uL Normal 4.00-10.60 [facility] Comment on above: Performed By: #### 5 6506, 01449 #### [address] KNEE RIGHT 4 [facility] 1 KNEE RIGHT 4 [facility] Department of Radiology [address] [place] [phone] ======== Patient Name: SUKHDEEP SIMENTAL : 1965 Sex: M Age: Race: White Pt. Location: OUTP Patient Status: D Ordered Date: 12/15/2020 12:25:00 PM Completed Date: 12/15/2020 12:35 PM Requesting Provider: ROBBI PEPE Attending Provider: ROBBI PEPE Report Copy To: Signs & Symptoms: L03.115 cellulitis of rt lower limb History: Comments: evaluate Exam: KNEE RIGHT 4 [facility] ======== KNEE RIGHT 4 [facility] 12/15/2020 12:35 PM CLINICAL INDICATIONS: L03.115 [...] report. Electronically signed: Layo Jimenes. Transcribed by: [email or web address], User Resident: LAYO CORDERO Electronically Signed by: LAYO JIMENES @ 12/16/2020 09:18 AM I personally read this/these film(s) with this resident Normal The [facility] Comment on above: Order Comment: evalu ate SEDIMENTATION RATEon 021 SED RATE 77 mm/hr High 0-10 [facility] Comment on above: Performed By: #### 5 6506, 71967 #### [facility] [address] COVID-19 Positive/Negativeon 05-05-2020 COVID-19 Positive/Negative Negative Negative [facility] Comment on above: Reference: NegativeT esting for SARS-CoV-2 by RT-PCRThis test was developed and its performance characteristics determined by [employer] and validated at the [facility]. This test has not been FDA [...] among non-blacks MDRD (S/P/Bld) [Vol rate/Area] mL/min/{1.73_m2} [facility] Otheron 05-05-2020 GFR/1.73 sq M.predicted MDRD (S/P/Bld) [Vol rate/Area] mL/min/{1.73_m2} [facility] Comment on above: GFR estimated refere nce range: According to KDOQI guidelines, <60 ml/min/1.73m2 is sufficient to diagnose a patient with chronic kidney disease. Pharmacy Creatinine Clearance (Chem N/A [facility] Coronavirus 2019 PCR Interp N/A [facility] Serum or plasma calcium yeni urement (mass/volume)on 05-05-2020 Calcium [Mass/Vol] 8.6 mg/dL 8.2-10.2 [facility] Serum or plasma chloride xi surement (moles/volume)on 05-05-2020 Chloride [Moles/Vol] 104 mmol/L 95-114 [facility] Serum or plasma creatinine m easurement with calculation of estimated glomerular filtron 05-05-2020 Creatinine [Mass/Vol] 1.14 mg/dL 0.64-1.27 [facility] Serum or plasma glucose yeni urement (mass/volume)on 05-05-2020 Glucose [Mass/Vol] 178 mg/dL 70-100 [facility] Comment on above: ADA recommended refe rence rangeRandom Glucose Reference Range is dependent on time and content of last meal. Glucose of more than 200 mg/dL in a nonstressed, ambulatory subject supports the diagnosis of Diabetes Mellitus. Serum or plasma potassium me asurement (moles/volume)on 05-05-2020 Potassium [Moles/Vol] 4.0 mmol/L 3.5-5.1 [facility] Serum or plasma sodium measu rement (moles/volume)on 05-05-2020 Sodium [Moles/Vol] 141 mmol/L 136-146 [facility] Serum or plasma total carbon dioxide measurement (moles/volume)on 05-05-2020 CO2 [Moles/Vol] 27.4 mmol/L 22.0-30.0 [facility] Serum or plasma urea nitroge n measurement (mass/volume)on 05-05-2020 Urea nitrogen [Mass/Vol] 18 mg/dL 9-[address] [facility] .eGFRon 06-10-2019 eGFR AA >60 Normal >=60 [facility] Comment on above: Result Comment: Resu lt = 0-14.9 mL/min/1.73 m2 Kidney failure or Dialysis Result = 15-29 mL/min/1.73 m2 Severe decrease in GFR Result = 30-59 mL/min/1.73 m2 Moderate decrease in GFR Result >= 60 mL/min/1.73 m2 Normal or increased GFR Performed By: #### E GFR #### [address] [address] eGFR Non-AA >60 Normal >=60 [facility] Comment on above: Result Comment: Resu lt [...] dosing. Performed By: #### E GFR #### [address] [address] Basic Metabolic Profileon Anion gap [Moles/Vol] 15 mmol/L Normal 7-17 [facility] Comment on above: Performed By: #### C [id number] #### [address] [address] Calcium [Mass/Vol] 9.8 mg/dL Normal 8.5-10.3 [facility] Comment on above: Performed By: #### C [id number] #### [address] [address] Chloride [Moles/Vol] 103 mmol/L Normal 98-110 [facility] Comment on above: Performed By: #### C [id number] #### [address] [address] CO2 [Moles/Vol] 27 mmol/L Normal 22-32 [facility] Comment on above: Performed By: #### C [id number] #### [address] [address] Creatinine [Mass/Vol] 0.98 mg/dL Normal 0.61-1.24 [facility] Comment on above: Performed By: #### C [id number] #### [address] [address] Glucose [Mass/Vol] 198 mg/dL High 70-99 [facility] Comment on above: Performed By: #### C [id number] #### [address] [address] Potassium [Moles/Vol] 4.0 mmol/L Normal 3.4-4.8 [facility] Comment on above: Performed By: #### C [id number] #### [address] [address] Sodium [Moles/Vol] 141 mmol/L Normal 133-142 [facility] Comment on above: Performed By: #### C [id number] #### [address] [address] Urea nitrogen [Mass/Vol] 18 mg/dL Normal 8-26 [facility] Comment on above: Performed By: #### C [id number] #### [address] [address] Urea nitrogen/Creatinine [Mass ratio] 18.4 mg/mg Normal 10.0-20.0 [facility] Comment on above: Performed By: #### C [id number] #### [address] [address] CBCon 06-10-2019 Erythrocyte distribution width (RBC) [Ratio] 13.0 % Normal 11.6-14.8 [facility] Comment on above: Performed By: #### C BCI #### [address] [address] Hematocrit (Bld) [Volume fraction] 46.2 % Normal 41.0-53.0 [facility] Comment on above: Performed By: #### C BCI #### [address] [address] Hemoglobin (Bld) [Mass/Vol] 16.2 g/dL Normal 13.5-17.5 [facility] Comment on above: Performed By: #### C BCI #### [address] [address] MCH (RBC) [Entitic mass] 32.1 pg Normal 27.0-35.0 [facility] Comment on above: Performed By: #### C BCI #### [address] [address] MCHC (RBC) [Mass/Vol] 35.0 % Normal 31.0-37.0 [facility] Comment on above: Performed By: #### C BCI #### [address] [address] MCV (RBC) [Entitic vol] 91.6 fL Normal 80.0-100.0 [facility] Comment on above: Performed By: #### C BCI #### [address] [address] Platelet mean volume (Bld) [Entitic vol] 7.5 fL Normal 6.7-10.6 [facility] Comment on above: Performed By: #### C BCI #### [address] [address] Platelets (Bld) [#/Vol] 263 x10*3/mcL Normal 150-350 [facility] Comment on above: Performed By: #### C BCI #### [address] [address] RBC (Bld) [#/Vol] 5.04 x10*6/mcL Normal 4.30-5.80 [facility] Comment on above: Performed By: #### C BCI #### [address] [address] WBC (Bld) [#/Vol] 9.7 x10*3/mcL Normal 4.5-11.0 [facility] Comment on above: Performed By: #### C BCI #### [address] [address] Hgb A1con 06-10-2019 HbA1c (Bld) [Mass fraction] 134 mg/dL High 68-114 [facility] Comment on above: Result Comment: Math ematical Calc approx. The mean gluc equivalency of A1c Performed By: #### H BA1C #### [address] [address] HbA1c (Bld) [Mass fraction] 6.3 % A1c High 4.0-5.6 [facility] Comment on above: Result Comment: Refe rence Range: 4.0 - 5.6 % Normal 5.7 - 6.4 % Pre-Diabetes > 6.5 % Diabetes Performed By: #### H BA1C #### [address] [address] MRSA, PCRon 06-10-2019 INR Coag (Bld) [Relative time] Negative Normal [facility] Comment on above: Result Comment: The [facility] Xpert MRSA Assay is a qualitative in [...] clinician. Performed By: #### M RSAPC #### [address] [address] PTon 06-10-2019 INR Coag (PPP) [Relative time] 1.0 {INR} Normal <=3.5 [facility] Comment on above: Result Comment: INR has no normal range. INR Therapeutic range is: 2.0-3.0 (AF, CVA, TIAs, DVT prophylaxis, acute DVT) 2.5-3.5 ([facility] heart valves, recurrent thrombosis/emboli) Performed By: #### P TINR #### [address] [address] PT Coag (PPP) [Time] 11.9 s Normal 8.9-11.9 [facility] Comment on above: Performed By: #### P TINR #### [address] [address] PTTon 06-10-2019 aPTT Coag (Bld) [Time] 23.0 s Normal 19.2-27.8 [facility] Comment on above: Performed By: #### P TT #### [address] [address] XR Chest 2 Viewson 0 XR Chest [...] Electronically Signed in Other Vendor System) Normal [facility] XR LUMBAR SPINE (2-3 VIEWS)o n 04-16-2019 [...] Juwan Kumar MD 04/16/19 Final result Normal [facility] Limited range of motion without evidence of instability. Multilevel disc degeneration. [place] EXAMINATION: 2 XRAY VIEWS OF THE [...] lower lumbar spine. Spinous processes appear intact. [facility]at[facility] M[facility] Incoming Radiant Results From [employer] - 04/16/2019 11:16 AM EST EXAMINATION: 2 [...] without evidence of instability. [facility]. [facility] LUMBAR SPINE WO CONTRASTo n [...] Ahsan Guidry MD 04/11/[address] Final [address] Normal [facility] XR PELVIS (1-2 VIEWS)on 03-28 XR [...] Ahsan Guidry MD 04/11/[address] Final result Normal [facility] No acute findings. [employer] Phone: EXAMINATION: ONE XRA Y VIEW OF THE PELVIS 04/11/2019 1:24 pm COMPARISON: None. HISTORY: ORDERING SYSTEM PROVIDED HISTORY: fall right buttock pain TECHNOLOGIST PROVIDED HISTORY: fall right buttock pain Reason for Exam: fall buttocks pain Acuity: Acute Type of Exam: Initial FINDINGS: No acute fracture. No widening of the sacroiliac joints. Degenerative changes within the lower lumbar spine. Mild bilateral hip osteoarthritis. [employer] Phone: Josafat, Mhpn Incoming Radiant Results From [employer] - 04/11/2019 2:02 PM EST EXAMINATION: ONE [...] bilateral hip osteoarthritis. IMPRESSION: No acute findings. [employer] Work Phone: Vital Signs Date Time Vital Sign Value Performing Clinician Facility 02-13-2024 11:22-0500 Body mass index (BMI) [Ratio] 38.99 kg/m2 Ahsan Nienberg PA Work Phone: [facility] 02-13-2024 11:22-0500 Body weight 119.75 kg Ahsan Nienberg PA Work Phone: [facility] [employer] [facility] 02-13-2024 11:22-0500 Diastolic blood pressure 100 mm[Hg] Ahsan Nienberg PA Work Phone: [facility] 02-13-2024 11:22-0500 Heart rate 92 /min Ahsan Nienberg PA Work Phone: [facility] 02-13-2024 11:22-0500 Respiratory rate 18 /min Ahsan Nienberg PA Work Phone: [facility] 02-13-2024 11:22-0500 Systolic blood pressure 150 mm[Hg] Ahsan Nienberg PA Work Phone: [facility] 12-05-2023 10:05-0400 Body height 175.3 cm Ahsan Nienberg PA Work Phone: [facility] [employer] [facility] 12-05-2023 10:05-0400 Body mass index (BMI) [Ratio] 39.28 kg/m2 Ahsan Nienberg PA Work Phone: [facility] [employer] [facility] 12-05-2023 10:05-0400 Body weight 120.66 kg Ahsan Nienberg PA Work Phone: [facility] [employer] [facility] 12-05-2023 10:05-0400 Diastolic blood pressure 90 mm[Hg] Ahsan Nienberg PA Work Phone: [facility] [employer] [facility] 12-05-2023 10:05-0400 Heart rate 91 /min Ahsan Nienberg PA Work Phone: [facility] 12-05-2023 10:05-0400 Respiratory rate 16 /min Ahsan Flynn PA Work Phone: [facility] 12-05-2023 10:05-0400 SaO2% (BldA) [Mass fraction] 95 % Ahsan NOVAK Work Phone: [facility] 12-05-2023 10:05-0400 Systolic blood pressure 131 mm[Hg] Ahsan NOVAK Work Phone: [facility] 11-07-2023 11:09-0400 Body height 175.26 cm [facility] 11-07-2023 11:09-0400 Body mass index (BMI) [Ratio] 39 kg/m2 [facility] 11-07-2023 11:09-0400 Body temperature 97.4 [degF] [facility] 11-07-2023 11:09-0400 Body [facility] [facility]07-2023 11:09-0400 Diastolic blood pressure 85 mm[Hg] [facility] 11-07-2023 11:09-0400 Heart rate 88 /min [facility] 11-07-2023 11:09-0400 Respiratory rate 18 /min [facility] 11-07-2023 11:09-0400 SaO2% (BldA) [Mass fraction] 98 % [facility] 11-07-2023 11:09-0400 Systolic blood pressure 123 mm[Hg] [facility] 08-15-2023 11:27-0400 Diastolic blood pressure 84 mm[Hg] Ahsan NOVAK Work Phone: [facility] 08-15-2023 11:27-0400 Heart rate 110 /min Ahsan Flynn PA Work Phone: [facility] 08-15-2023 11:27-0400 Respiratory rate 20 /min Ahsan Flynn PA Work Phone: [facility] 08-15-2023 11:27-0400 Systolic blood pressure 126 mm[Hg] Ahsan Flynn PA Work Phone: [facility] [employer] [facility] 02-14-2023 11:12-0500 Body height 175.3 cm Ahsan Flynn PA Work Phone: [facility] 02-14-2023 11:12-0500 Body mass index (BMI) [Ratio] 39.43 kg/m2 Ahsan Flynn PA Work Phone: [facility] 02-14-2023 11:12-0500 Body weight 121.11 kg Ahsan Flynn PA Work Phone: [facility] 02-14-2023 11:12-0500 Diastolic blood pressure 94 mm[Hg] Ahsan Flynn PA Work Phone: [facility] 02-14-2023 11:12-0500 Heart rate 89 /min Ahsan Flynn PA Work Phone: [facility] 02-14-2023 11:12-0500 Respiratory rate 18 /min Ahsan Flynn PA Work Phone: [facility] [employer] [facility] 02-14-2023 11:12-0500 SaO2% (BldA) [Mass fraction] 98 % Ahsan Flynn PA Work Phone: [facility] 02-14-2023 11:12-0500 Systolic blood pressure 143 mm[Hg] Ahsan Flynn PA Work Phone: [facility] 02-07-2023 14:37-0500 Body temperature 98.6 [degF] 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 Work Phone: [facility] 02-07-2023 14:37-0500 Body weight 122.92 kg 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 Work Phone: [facility] 02-07-2023 14:37-0500 Diastolic blood pressure 80 mm[Hg] 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 Work Phone: [facility] 02-07-2023 14:37-0500 Heart rate 79 /min 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 Work Phone: [facility] 02-07-2023 14:37-0500 SaO2% (BldA) [Mass fraction] 98 % 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 Work Phone: [facility] 02-07-2023 14:37-0500 Systolic blood pressure 157 mm[Hg] 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 Work Phone: [facility] 02-04-2023 09:16-0500 Blood Pressure Location Cecelia MURILLO [facility] 02-04-2023 09:16-0500 Diastolic blood pressure 88 mm[Hg] Cecelia MURILLO [facility] 02-04-2023 09:16-0500 Heart rate 79 /min Cecelia MURILLO [facility] 02-04-2023 09:16-0500 Respiratory rate 16 /min Cecelai MURILLO [facility] 02-04-2023 09:16-0500 Systolic blood pressure 139 mm[Hg] Cecelia MURILLO [facility] 12-20-2022 14:26-0400 Body height 175.3 cm Singh Morgan PA-C Work Phone: [facility] 12-20-2022 14:26-0400 Body weight 123.11 kg Singh Morgan PA-C Work Phone: [facility] 12-20-2022 14:26-0400 Diastolic blood pressure 84 mm[Hg] Singh Morgan PA-C Work Phone: [facility] 12-20-2022 14:26-0400 Heart rate 76 /min Singh Morgan PA-C Work Phone: [facility] 12-20-2022 14:26-0400 SaO2% (BldA) [Mass fraction] 97 % Singh Morgan PA-C Work Phone: [facility] 12-20-2022 14:26-0400 Systolic blood pressure 165 mm[Hg] Singh Morgan PA-C Work Phone: [facility] 12-06-2022 15:00-0400 Body height 175.26 cm Oumou Reji Other [employer] Other 12-06-2022 15:00-0400 Body mass index (BMI) [Ratio] 39.9 kg/m2 Oumou Reji Other [employer] Other 12-06-2022 15:00-0400 Body temperature 98.1 [degF] Oumou Reji Other [employer] Other 12-06-2022 15:00-0400 Body weight 122.56 kg Oumou Reji Other [employer] Other 12-06-2022 15:00-0400 Diastolic blood pressure 81 mm[Hg] Oumou Reji Other [employer] Other 12-06-2022 15:00-0400 Respiratory rate 20 /min Oumou Reji Other [employer] Other 12-06-2022 15:00-0400 SaO2% (BldA) [Mass fraction] 97 % Oumou Reji Other [employer] Other 12-06-2022 15:00-0400 Systolic blood pressure 127 mm[Hg] Oumou Reji Other [employer] Other 11-05-2022 14:17-0400 Body height 175.3 cm Thomas Mathew MD Work Phone: [facility] 11-05-2022 14:17-0400 Body weight 123.97 kg Thomas Mathew MD Work Phone: [facility] 11-05-2022 14:17-0400 Diastolic blood pressure 84 mm[Hg] Thomas Mathew MD Work Phone: [facility] 11-05-2022 14:17-0400 Heart rate 66 /min Thomas Mathew MD Work Phone: [facility] 11-05-2022 14:17-0400 SaO2% (BldA) [Mass fraction] 100 % Thomas Mathew MD Work Phone: [facility] 11-05-2022 14:17-0400 Systolic blood pressure 156 mm[Hg] Thomas Mathew MD Work Phone: [facility] 10-17-2022 15:41-0400 Blood Pressure Location Maite SQUIRES [facility] [place] 10-17-2022 15:41-0400 Diastolic blood pressure 84 mm[Hg] Maite SQUIRES [facility] [place] 10-17-2022 15:41-0400 Heart rate 70 /min Maite SQUIRES [facility] [place] 10-17-2022 15:41-0400 Respiratory rate 16 /min Maite SQUIRSE [facility] [place] 10-17-2022 15:41-0400 Systolic blood pressure 118 mm[Hg] Maite RICKL [facility] [place] 06-21-2022 10:20-0400 Body height 175.26 cm Oumouyesenia Weinstein Other [employer] Other 06-21-2022 10:20-0400 Body mass index (BMI) [Ratio] 40.02 kg/m2 Oumou Reji Other [employer] Other 06-21-2022 10:20-0400 Body temperature 97.6 [degF] Oumou Reji Other [employer] Other 06-21-2022 10:20-0400 Body weight 122.93 kg Oumou Reji Other [employer] Other 06-21-2022 10:20-0400 Diastolic blood pressure 80 mm[Hg] Oumou Reji Other [employer] Other 06-21-2022 10:20-0400 Respiratory rate 20 /min Oumou Reji Other [employer] Other 06-21-2022 10:20-0400 SaO2% (BldA) [Mass fraction] 97 % Oumou Reji Other [employer] Other 06-21-2022 10:20-0400 Systolic blood pressure 114 mm[Hg] Oumou Reji Other [employer] Other 03-19-2022 09:48-0500 Blood Pressure Location Cecelia LIDIA [facility] 03-19-2022 09:48-0500 Diastolic blood pressure 88 mm[Hg] Cecelia MURILLO [facility] 03-19-2022 09:48-0500 Heart rate 78 /min Cecelia MURILLO [facility] 03-19-2022 09:48-0500 Respiratory rate 16 /min Cecelia MURILLO [facility] 03-19-2022 09:48-0500 Systolic blood pressure 139 mm[Hg] Cecelia MURILLO [facility] 01-11-2022 11:15-0500 Body temperature 98.1 [degF] PHYSICIAN NO [facility] 01-11-2022 11:15-0500 Diastolic blood pressure 88 mm[Hg] PHYSICIAN NO [facility] 01-11-2022 11:15-0500 Heart rate 79 /min PHYSICIAN NO [facility] 01-11-2022 11:15-0500 Respiratory rate 18 /min PHYSICIAN NO [facility] 01-11-2022 11:15-0500 SaO2% (BldA) [Mass fraction] 96 % PHYSICIAN NO [facility] 01-11-2022 11:15-0500 Systolic blood pressure 137 mm[Hg] PHYSICIAN NO [facility] 12-15-2021 12:20-0400 Body height 175.26 cm Estephanie Lowry Other [facility] [employer] Other 12-15-2021 12:20-0400 Body mass index (BMI) [Ratio] 41.49 kg/m2 Estephanie Lowry Other [email or web address] [facility] [employer] Other 12-15-2021 12:20-0400 Body temperature 98.6 [degF] Estephanie Lowry Other [employer] Other 12-15-2021 12:20-0400 Body weight 127.46 kg Estephanie Lowry Other [employer] Other 12-15-2021 12:20-0400 Diastolic blood pressure 96 mm[Hg] Estephanie Lowry Other [employer] Other 12-15-2021 12:20-0400 Respiratory rate 18 /min Estephanie Hammondmond Other [employer] Other 12-15-2021 12:20-0400 SaO2% (BldA) [Mass fraction] 97 % Estephanie Lowry Other [employer] Other 12-15-2021 12:20-0400 Systolic blood pressure 132 mm[Hg] Estephanie Lowry Other [employer] Other 10-25-2021 14:00-0400 Body height 175.26 cm Oumou Reji Other [employer] Other 10-25-2021 14:00-0400 Body mass index (BMI) [Ratio] 42.02 kg/m2 Oumou Reji Other [employer] Other 10-25-2021 14:00-0400 Body temperature 96.8 [degF] Oumou Reji Other [employer] Other 10-25-2021 14:00-0400 Body weight 129.09 kg Oumou Reji Other [employer] Other 10-25-2021 14:00-0400 Diastolic blood pressure 69 mm[Hg] Oumou Reji Other [employer] Other 10-25-2021 14:00-0400 Respiratory rate 20 /min Oumou Reji Other [employer] Other 10-25-2021 14:00-0400 SaO2% (BldA) [Mass fraction] 98 % Oumou Reji Other [employer] Other 10-25-2021 14:00-0400 Systolic blood pressure 109 mm[Hg] Oumou Reji Other [employer] Other 05-26-2021 10:45-0400 Body temperature 98.8 [degF] Octavio Mcclellan [employer] Work Phone: [employer] 05-26-2021 10:45-0400 Respiratory rate 18 /min Octavio Mcclellan [employer] Work Phone: [employer] 05-26-2021 10:45-0400 SaO2% (BldA) [Mass fraction] 98 % Octavio Mcclellan [employer] Work Phone: [employer] 05-26-2021 07:30-0400 Heart rate 105 /min Octavio Mcclellan [employer] Work Phone: [employer] 05-25-2021 23:20-0400 Diastolic blood pressure 85 mm[Hg] Octavio Mcclellan [employer] Work Phone: [employer] 05-25-2021 23:20-0400 Systolic blood pressure 130 mm[Hg] Octavio Mcclellan [employer] Work Phone: [employer] 05-24-2021 10:15-0400 Body height 175.3 cm Octavio Mcclellan [employer] Work Phone: [employer] 05-24-2021 10:15-0400 Body mass index (BMI) [Ratio] 50.65 kg/m2 Octavio Mcclellan [employer] Work Phone: [employer] 05-24-2021 10:15-0400 Body weight 155.58 kg Octavio Mcclellan [employer] Work Phone: [employer] 05-08-2021 11:04-0400 Body height 175.[address] [facility] [employer] 05-08-2021 11:04-0400 Body mass index (BMI) [Ratio] 51.98 kg/m2 [facility] 05-08-2021 11:04-0400 Body temperature 97.3 [degF] [facility] 05-08-2021 11:04-0400 Body weight 159.[address] [employer] 05-08-2021 11:04-0400 Diastolic blood pressure 83 mm[Hg] [address] [employer] 05-08-2021 11:04-0400 Heart rate 126 /min [address] [employer] 05-08-2021 11:04-0400 Respiratory rate 20 /min [address] [employer] 05-08-2021 11:04-0400 SaO2% (BldA) [Mass fraction] 95 % [address] [employer] 05-08-2021 11:04-0400 Systolic blood pressure 121 mm[Hg] [address] [employer] 01-08-2020 14:04-0500 BMI (Body Mass Index) 47.99 kg/m2 [facility] 01-08-2020 14:04-0500 Body Temperature 96.69 [degF] [facility] [employer] [facility] 01-08-2020 14:04-0500 Body weight 147.[address] [facility] [employer] [facility] 01-08-2020 14:04-[address] [facility] [employer] [facility] 04-11-2019 12:42-0500 BMI (Body Mass Index) 44.3 kg/m2 [employer] Work Phone: 04-11-2019 12:42-0500 Body Temperature 97.39 [degF] [employer] Work Phone: 04-11-2019 12:42-0500 Body weight 136.08 kg [employer] Work Phone: 04-11-2019 12:42-0500 BP Diastolic 98 mm[Hg] [employer] Work Phone: 04-11-2019 12:42-0500 BP Systolic 196 mm[Hg] [employer] Work Phone: 04-11-2019 12:42-0500 Height 175.3 cm Suzanne [employer] Phone: 04-11-2019 12:42-0500 Pulse (Heart Rate) 72 /min Suzanne [employer] Phone: 04-11-2019 12:42-0500 Pulse Oximetry 96 % [employer] Phone: 04-11-2019 12:42-0500 Respiratory Rate 16 /min Suzanne [employer] Work Phone: Encounters Encounter Date Encounter Type Care Provider Facility Start: 08-13-2025 ambulatory Cecelia MURILLO [facility] ty: [place] Start: 08-07-2024 End: 08-07-2024 ambulatory Cecelia MURILLO Facility:[facility] [place] Start: 08-07-2024 End: 08-07-2024 Patient encounter procedure [facility] Start: 06-22-2024 End: 06-22-2024 ambulatory Cecelia MURILLO Facility:[facility] [place] Start: 06-17-2024 End: 06-17-2024 ambulatory [facility] Start: 05-18-2024 ambulatory [facility] Start: 05-18-2024 End: 05-18-2024 ambulatory [facility] Start: 04-10-2024 End: 04-21-2024 Telephone encounter Cherelle Oleary RN [facility] Start: 03-03-2024 End: 03-04-2024 Telephone encounter Cherelle Oleary RN [facility] Start: 02-13-2024 End: 02-13-2024 ambulatory AHSAN FLYNN [facility] Start: 02-13-2024 End: 02-13-2024 Office outpatient visit 15 minutes Ahsan Flynn PA Work Phone: [facility] Comment on above: Spinal stenosis, lum bar region, with neurogenic claudication (Primary Dx) Start: 02-03-2024 End: 02-03-2024 ambulatory Cecelia MURILLO Facility:[facility] Start: 02-03-2024 End: 02-03-2024 Patient encounter procedure Cecelia MURILLO [facility] Start: 12-05-2023 End: 12-05-2023 ambulatory [facility] Start: 12-05-2023 End: 12-05-2023 Office outpatient visit 15 minutes Ahsan NOVAK Work Phone: [facility] Comment on above: Spinal stenosis, lum bar region, with neurogenic claudication (Primary Dx) Start: 11-07-2023 End: 11-07-2023 ambulatory [facility] Work Phone: Start: 11-07-2023 End: 11-07-2023 Patient encounter procedure [facility] Physician [facility] Neph[facility] Reg Work Phone: Start: 10-29-2023 Non-patient / Non-visit [facility] Physician [facility] Work Phone: Start: 10-07-2023 End: 06-25-2024 Telephone encounter Thomas Mathew MD Work Phone: Neurology Comment on above: Appointment Start: 10-04-2023 Telephone encounter Thomas crabtree MD Work Phone: Neurology Comment on above: Results Start: 08-15-2023 End: 08-15-2023 Office outpatient visit 15 minutes Ahsan NOVAK Work Phone: [facility] Comment on above: Spinal stenosis, lum bar region, with neurogenic claudication (Primary Dx) Start: 08-15-2023 End: 08-15-2023 ambulatory [facility] Start: 07-30-2023 Telephone encounter Thomas crabtree MD Work Phone: Neurology Comment on above: Appointment; Orders Start: 07-23-2023 Telephone encounter Thomas crabtree MD Work Phone: Neurology Start: 05-08-2023 End: 05-08-2023 ambulatory Thomas Mathew MD Work Phone: Neurosurgery Comment on above: Radiculopathy, lumba r region (Primary Dx) Start: 05-08-2023 End: 05-08-2023 Telemedicine consultation with patient Thomas Mathew MD Work Phone: [facility] Start: 05-08-2023 Telephone encounter Cherelle Oleary RN [facility] Start: 05-07-2023 Telephone encounter Cherelle Oleary RN [facility] Start: 04-16-2023 Telephone encounter Thomas crabtree MD Work Phone: Neurology Comment on above: Imaging Disc Start: 04-10-2023 Telephone encounter Thomas crabtree MD Work Phone: Neurology Comment on above: PT Certification Start: 04-09-2023 Telephone encounter Thomas crabtree MD Work Phone: Neurology Start: 02-14-2023 End: 02-14-2023 Office outpatient visit 15 minutes Ahsan NOVAK Work Phone: [facility] Comment on above: Spinal stenosis, lum bar region, with neurogenic claudication (Primary Dx) Start: 02-07-2023 End: 02-07-2023 Patient encounter procedure 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 Work 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: Neurosurgery Comment on above: 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) Start: 02-07-2023 Telephone encounter Thomas crabtree MD Work Phone: Neurosurgery Start: 02-04-2023 End: 02-04-2023 Patient encounter procedure Cecelia Jj LIDIA [facility] [place] Start: 01-23-2023 Telephone encounter Thomas crabtree [...] Evaluation and management of inpatient THOMAS MATHEW Facility:[facility] Start: 12-06-2022 End: 12-06-2022 ambulatory Oumou Weinstein Other [employer] Other Start: 12-06-2022 Office outpatient vi sit 25 minutes Oumou Weinstein [facility] Nephrology Reg Start: 11-21-2022 End: 11-21-2022 ambulatory MAITE GALLOWAY Facility:[facility] Start: 11-21-2022 End: 11-21-2022 ambulatory BLAYNE ISABEL Facility:[facility] Start: 11-21-2022 End: 11-21-2022 ambulatory BLAYNE ISABEL Facility:[facility] Start: 11-21-2022 Encounter for other preprocedural examination BLAYNE ISABEL [facility] Start: 11-05-2022 End: 11-05-2022 Patient encounter procedure Thomas Mathew MD Work Phone: Neurosurgery Comment on above: 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 Facility:[facility] Start: 06-21-2022 End: 06-21-2022 ambulatory Oumou Reji Other [employer] Other Start: 06-21-2022 Office outpatient vi sit 25 minutes Oumou Reji [facility] Start: 06-11-2022 End: 06-12-2022 ambulatory OUMOU REJI Facility:[facility] Start: 04-03-2022 End: 04-03-2022 ambulatory Oumou Reji Other [employer] Other Start: 04-03-2022 Telephone encounter Oumou Reji [facility] Start: 03-20-2022 Encounter for preprocedural laboratory examination DR DOCTOR MILES [facility] Start: 03-19-2022 End: 03-19-2022 Patient encounter procedure Cecelia MURILLO [facility] Start: 03-15-2022 End: 03-16-[address] DOCTOR MILES Facility:[facility] Start: 03-15-2022 End: 03-16-2022 Encounter for preprocedural laboratory examination DR DOCTOR MILES Facility:[facility] Start: 03-12-2022 End: 03-13-[address] CECELIA MURILLO . Facility:[facility] Start: 03-08-2022 End: 03-09-[address] DOCTOR MILES Facility:[facility] Start: 01-27-2022 Encounter for genera l adult medical examination without abnormal findings DR BLAYNE ISABEL . [facility] Start: 01-24-2022 End: 01-25-[address] BLAYNE ISABEL . Facility:[facility] Start: 01-24-2022 End: 01-25-2022 Encounter for general adult medical examination without abnormal findings DR BLAYNE ISABEL . Facility:[facility] Start: 01-22-2022 End: 01-22-2022 ambulatory Oumou Reji Other [employer] Other Start: 01-22-2022 Telephone encounter Oumou Reji [facility] Start: 01-11-2022 End: 01-11-2022 ambulatory PHYSICIAN NO FAMILY Facility:[facility] Start: 01-11-2022 End: 01-11-2022 ambulatory PHYSICIAN NO [facility] Work Phone: Start: 01-11-2022 End: 01-11-2022 Discharged Recurring PHYSICIAN NO [facility]-Infusion Therapy - O/P Start: 01-10-2022 End: 01-10-2022 ambulatory Oumou Reji Other [employer] Other Start: 01-10-2022 Telephone encounter Oumou Reji [facility] Start: 01-02-2022 End: 01-02-2022 ambulatory Oumou Reji Other [employer] Other Start: 01-02-2022 Telephone encounter Oumou Reji [facility] Start: 01-01-2022 End: 01-01-2022 ambulatory Oumou Reji Other [employer] Other Start: 01-01-2022 Telephone encounter Oumou Reji [facility] Start: 12-21-2021 End: 12-22-[address] BLAYNE ISABEL . 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 Main [place] Start: 11-24-2021 End: 11-25-2021 ambulatory OUMOU REJI Facility:[facility] Start: 11-15-2021 End: 11-15-2021 ambulatory OUMOU REJI Facility:[facility] Start: 11-14-2021 End: 11-15-2021 ambulatory OUMOU REJI Facility:[facility] Start: 11-01-2021 End: 11-02-[address] BLAYNE ISABEL . Facility:[facility] Start: 10-31-2021 End: 11-01-[address] BLAYNE ISABEL . Facility:[facility] Start: 10-25-2021 End: 10-25-2021 ambulatory Oumou Reji Other [employer] Other Start: 10-25-2021 Office outpatient ne w 45 minutes Oumou Reji [facility] Start: 10-18-2021 End: 10-19-[address] BLAYNE ISABEL . Facility:[facility] Start: 10-17-2021 [facility]counter for other [facility] Start: 10-17-2021 Encounter for [facility]procedural [facility] Start: 10-16-2021 End: 10-17-[address] BLAYNE ISABEL . Facility:[facility] Start: 10-16-2021 End: 10-17-2021 Encounter for other specified special examinations DR DOCTOR MILES Facility:[facility] Start: 10-13-2021 End: 10-21-2021 ambulatory PHYSICIAN BRADFORD Facility:[facility] Start: 10-10-2021 End: 10-11-[address] [...] Evaluation and management of inpatient LEISA PERRY [facility] Start: 05-24-2021 End: 05-26-2021 ambulatory OCTAVIO Jj [facility] Start: 05-24-2021 End: 05-26-2021 Subsequent hospital visit by physician Octavio Mcclellan DO Work Phone: [facility] Ortho/Med Surg Comment on above: S/P laparoscopic sle may gastrectomy (Primary Dx) Start: 05-08-2021 End: 05-08-2021 Subsequent hospital visit by physician Twyla Pat 2 [facility] Pre-Admit Testing Comment on above: Canceled (Other) Start: 05-08-2021 End: 05-11-2021 ambulatory OCTAVIO MCCLELLAN [facility] Start: 05-08-2021 End: 05-13-2021 ambulatory OCTAVIO Jj [facility] Start: 05-08-2021 End: 05-10-2021 Patient encounter status [facility] Rad[facility] Start: 05-08-2021 End: 05-10-2021 Subsequent hospital visit by physician Glory Mccracken Xr [facility] Radiology Comment on above: Pre-op chest exam Start: 05-08-2021 End: 05-12-2021 Subsequent hospital visit by physician Twyla Mccracken Rm 2 [facility] Pre-Admit Testing Start: 05-05-2020 End: 05-05-2020 Patient encounter procedure Blayne Bañuelosy -Pre-Surgical Testing Start: 02-04-2020 End: 02-04-2020 Subsequent hospital visit by physician Suzanne Pruett Work Phone: [facility] Echocardiography Comment on above: Arrived Start: 01-08-2020 End: 01-08-2020 Subsequent hospital visit by physician Alexandro Muhammad Work Phone: [facility] Radiology Start: 01-08-2020 End: 01-08-2020 Office outpatient new 30 minutes Alexandro Muhammad Work Phone: [facility] Comment on above: Fluid retention in l egs (Primary Dx) Start: 06-10-2019 End: 06-11-2019 Patient encounter procedure [facility] Facility:[facility] Start: 04-16-2019 End: 04-19-2019 Patient encounter procedure ARSENIO BHATTI [facility] Start: 04-16-2019 End: 04-18-2019 Subsequent hospital visit by physician Nelson Xr Room 4 [facility] Comment on above: Injury Start: 04-11-2019 End: 04-11-2019 Emergency department patient visit [facility] Start: 04-11-2019 End: 04-11-2019 Emergency department patient visit [facility] Work Phone: [facility] ED Comment on above: Acute bilateral low back pain with right-sided sciatica (Primary Dx); Traumatic buttock pain Procedures Date Procedure Procedure Detail Performing Clinician Start: 11-21-2022 Antibody screen BLAYNE ISABEL Comment on above: Order Comment: Speci men Type: BLOOD SPECIMENOrdering Facility: [facility] Address: [address] [place], [place] [id number] Performed By: #### T [id number] ####CC MAIN BLOOD BANKCLIA [id number] [facility] [id number] [place], [place] [id number] [place] Start: 02-25-2022 Arthroplasty of knee Pa hiram MURILLO Start: 02-25-2022 Lumbar spinal fusion Pa zelalemvarghese MURILLO Start: 01-24-[address] SHERRI MURILLO . Comment on above: Performed By: #### P TT #### [facility] [address] [place] [address] Dr. Hugh Landis Start: 07-13-2021 Cystoscopic removal [...] Start: 05-08-2021 Assay of nicotine Ever Mcclellan [employer] Work Phone: Start: 05-08-2021 Basic metabolic pane [...] Cancer Screening Discussion Prostate Cancer Screening Discussion [facility] Start: 01-24-2027 Prostate specific antigen measurement Prostate Cancer Screening Discussion [facility] Start: 02-12-2025 Adult BMI Screening Adult BMI Screening [facility] Start: 02-12-2025 Tobacco Screening Tobacco Screening [facility] Start: 12-04-2024 Adult BMI Screening Adult BMI Screening [facility] Start: 12-04-2024 Tobacco Screening Tobacco Screening [facility] Start: 10-26-2024 Influenza vaccination Influenza Vaccine (Season Ended) [facility] Start: 08-14-2024 Tobacco Screening Tobacco Screening [facility] Start: 02-15-2024 Adult BMI Screening Adult BMI Screening [facility] Start: 02-15-2024 Tobacco Screening Tobacco Screening [facility] Start: 02-13-2024 End: 02-13-2024 Patient encounter procedure 02/13/2024 10:45 AM EST Office Visit [facility] [address] [place] [address] Ahsan Flynn, PA [address] [place] [address] [facility] Start: 12-12-2023 Creatinine measurement Serum Creatinine [facility] Start: 12-12-2023 Serum Creatinine Serum Creatinine [facility] Start: 10-27-2023 Covid-19 Vaccine () Covid-19 Vaccine ( season) [facility] Start: 10-27-2023 Influenza vaccination [facility] Start: 10-07-2023 End: 10-07-2023 Follow-up encounter Neurosurgery Comment on above: FOLLOW UP Start: 2023 RSV Vaccine (1 - 1-dose 60+ series) RSV Vaccine (1 - 1-dose 60+ series) [facility] Start: 2023 RSV Vaccine (1 - Risk 60-74 years 1-dose series) RSV Vaccine (1 - Risk 60-74 years 1-dose series) [facility] Start: 08-15-2023 End: 08-15-2023 Patient encounter procedure 08/15/2023 11:15 AM EDT Office Visit [facility] Pain Management [facility] [address] [place] [phone] Ahsan Flynn PA [address] [place] [address] [facility] Pain [facility] Start: 05-22-2023 Hemoglobin A1c measurement HbA1C [facility] Start: 05-22-2023 Hemoglobin A1c/Hemoglobin.total in Blood HbA1C [facility] Start: 02-25-2023 Behavioral Health Screening Behavioral Health Screening [facility] Start: 02-25-2023 Depression Assessment Depression Assessment [facility] Start: 01-20-2023 End: 01-19-2024 Radex spine lumbosacral 2/3 views XR LUMBAR LIMITED 2V AP/LAT Radiology Routine Lumbar adjacent segment disease with spondylolisthesis Expected: 01/20/2023, Expires: 01/19/2024 [facility] Work Phone: Comment on above: Expected: 01/20/2023, Expires: Start: 10-26-2022 Covid-19 Vaccine ( season) Covid-19 Vaccine ( season) [facility] Start: 10-26-2022 Influenza vaccination [facility] Start: 05-25-2022 Creatinine measurement Creatinine monitoring [facility] Start: 05-25-2022 Potassium monitoring Potassium monitoring [facility] Start: 05-08-2022 Creatinine measurement Creatinine monitoring [facility] Start: 05-08-2022 Potassium monitoring Potassium monitoring [facility] Start: 02-25-2022 DEPRESSION ASSESSMENT DEPRESSION ASSESSMENT [facility] Start: 01-03-2022 Hemoglobin A1c measurement A1C test (Diabetic or Prediabetic) [facility] Start: 01-03-2022 Lipid panel Lipid screen [facility] Start: 10-26-2021 Influenza vaccination Flu vaccine (Season Ended) [facility] Start: 06-06-2021 End: 06-06-2021 Patient encounter procedure 06/06/2021 Office Visit Oncology Spencer Guy MD [address] [place] [address] [facility] Start: 06-02-2021 End: 06-02-2021 Patient encounter procedure 06/02/2021 Office Visit Bariatrics Octavio Mcclellan DO [address] [place] [phone] [facility]ric [facility] Start: 05-24-2021 End: 05-24-2021 Admission to same day surgery center [facility] Comment on above: XI ROBOTIC LAPOROSCOPIC GASTRECTOMY SLEE VE, LIVER BIOPSY, EGD- GI SCHEDULED XI ROBOTIC LAPOROSCO PIC GASTRECTOMY SLEEVE, LIVER BIOPSY, EGD- GI SCHEDULED, POSSIBLE OPEN Start: 05-24-2021 End: 05-24-2021 Laps gstrc rstrictiv px longitudinal gastrectomy [facility] Start: 05-24-2021 Subsequent hospital visit by physician 05/24/2021 Hospital Encounter IP Unit Octavio Mcclellan DO [address] [place] [id number] [facility] Start: 05-19-2021 End: 05-19-2021 Patient encounter procedure 05/19/2021 Appointment Pre-Admission Testing [facility] Start: 05-18-2021 End: 05-18-2021 Patient encounter procedure 05/18/2021 Office Visit Bariatrics JerodOctavio, DO [address] [place] [address] [facility] B[facility]urg Start: 10-26-2020 Influenza vaccination Flu vaccine (#1) [facility] [employer] Start: 04-04-2020 End: 04-04-2020 Office Visit 04/04/2020 Office Visit Cardiovascular Medicine Suzanne Pruett MD [address] [place] [address] [phone] [facility] Start: 02-02-2020 End: 02-02-2020 Office Visit 02/02/2020 Office Visit Cardiovascular Medicine Suzanne Pruett MD [address] [place] [address] [phone] [facility] Start: 10-27-2019 Influenza vaccination INFLUENZA VACCINE (#1) [facility] Start: 10-26-2018 Influenza vaccination Flu vaccine (#1) [employer] Phone: Start: 09-10-2018 PROSTATE CANCER SCREENING DISCUSSION PROSTATE CANCER SCREENING DISCUSSION [facility] Start: 09-10-2013 Administration of varicella zoster vaccine Zoster (Shingles) Vaccine (1 of 2) [facility] Start: 09-10-2013 Colon cancer screen colonoscopy Colon cancer screen colonoscopy [employer] Phone: Start: 09-10-2013 Colonoscopy COLORECTAL CANCER SCREENING DISCUSSION [facility] Start: 09-10-2013 Prostate specific antigen measurement PROSTATE CANCER SCREENING DISCUSSION [facility] Start: 09-10-2013 Shingles Vaccine (1 of 2) Shingles Vaccine (1 of 2) [facility] Start: 09-10-2013 SHINGRIX VACCINE (1 of 2) SHINGRIX VACCINE (1 of 2) [facility] Start: 09-10-2013 Zoster vaccine hzv live for subcutaneous use ZOSTER (SHINGLES) VACCINE (1 of 2) [facility] Start: 09-10-2008 COLOGUARD (FIT-DNA) COLOGUARD (FIT-DNA) [facility] Start: 09-10-2008 Colonoscopy COLONOSCOPY [facility] Start: 09-10-2008 COLORECTAL CANCER SCREENING COLORECTAL CANCER SCREENING [facility] Start: 09-10-[address] COLONOGRAPHY [facility] Start: 09-10-2008 DIABETES SCREEN DIABETES SCREEN [facility] Start: 09-10-2008 Diabetes Screening Diabetes Screening [facility] Start: 09-10-2008 FECAL OCCULT BLOOD FECAL OCCULT BLOOD [facility] Start: 09-10-2008 Screening for malignant neoplasm of colon [facility] Start: 09-10-2008 SIGMOIDOSCOPY SIGMOIDOSCOPY [facility] Start: 2003 Diabetes screen Diabetes screen [facility] [employer] Phone: Start: 2003 Fasting lipid profile LIPID SCREENING [facility] [employer] Start: 2003 Lipid screen Lipid screen [facility] Phone: Start: 09-10-1998 Lipid 1996 panel - Serum or Plasma Lipid Screening [facility] Start: 09-10-1998 LIPID SCREEN LIPID SCREEN [facility] Start: 09-10-1982 DTaP,Tdap and Td Vaccines (1 - Tdap) DTaP,Tdap and Td Vaccines (1 - Tdap) [facility] Start: 09-10-1982 DTaP/Tdap/Td vaccine (1 - Tdap) DTaP/Tdap/Td vaccine (1 - Tdap) [facility] Start: 09-10-1982 Hepatitis B vaccine (1 of 3 - Risk 3-dose series) Hepatitis B vaccine (1 of 3 - Risk 3-dose series) [facility] Start: 09-10-1982 Pneumococcal Vaccine: 50+ (1 of 2 - PCV) Pneumococcal Vaccine: 50+ (1 of 2 - PCV) [facility] Start: 09-10-1982 Third diphtheria, tetanus and acellular pertussis (DTaP) vaccination TDAP (ADULT) [facility] Start: 09-10-1982 Urine microalbumin profile [facility] Start: 09-10-1981 Adult BMI Follow Up Plan Adult BMI Follow Up Plan [facility] Start: 09-10-1981 Annual PCP Team Chronic Disease Visit Annual PCP Team Chronic Disease Visit [facility] Start: 09-10-1981 BP Controlled (<130/80) BP Controlled (<130/80) [facility] Start: 09-10-1981 Depression Screening Depression Screening [facility] Start: 09-10-1981 Diabetic retinal exam Diabetic retinal exam [facility] Start: 09-10-1981 Hepatitis B surface antibody level LDL Cholesterol [facility] Start: 09-10-1981 HEPATITIS C SCREENING HEPATITIS C SCREENING [facility] Start: 09-10-1981 Hepatitis C screening Hepatitis C Screening [facility] Start: 09-10-1981 HIV SCREENING HIV SCREENING [facility] Start: 09-10-1981 HIV screening HIV Screening [facility] Start: 09-10-1981 Tetanus vaccination TETANUS [facility] Start: 09-10-1981 Urine screening for protein Diabetic microalbuminuria test [facility] Start: 09-10-1978 HIV screen HIV screen [facility] Phone: Start: 09-10-1978 HIV screening HIV screen [facility] Start: 09-10-1976 HIV screening HIV SCREENING DISCUSSION [employer] Start: 1975 Depression Screen Depression Screen [facility] Start: 1975 Depression Screening Depression Screening [facility] Start: 09-10-1974 DTaP/Tdap/Td vaccine (1 - Tdap) DTaP/Tdap/Td vaccine (1 - Tdap) [facility] [employer] Phone: Start: 09-10-1973 3 comp foot exam completed Diabetic Foot Exam [facility] Start: 09-10-1973 Diabetic foot examination Diabetic foot exam [facility] Start: 09-10-1973 Glaucoma screening Dilated Retinal Exam [facility] Start: 09-10-1973 Hepatitis B screening Urine Albumin:Creatinine Ratio [facility] Start: 09-10-1973 Hepatitis C antibody, confirmatory test Dilated Retinal Exam [facility] Start: 09-10-1969 Pneumococcal 0-64 years Vaccine (1 of 2 - PPSV23) Pneumococcal 0-64 years Vaccine (1 of 2 - PPSV23) [facility] Start: 09-10-1969 Pneumococcal vaccination [facility] Start: 09-10-1968 COVID-19 Vaccine (1) COVID-19 Vaccine (1) [facility] Start: 03-13-1964 COVID-19 VACCINE (#1) COVID-19 VACCINE (#1) [facility] Start: 1963 Hepatitis C antibody, confirmatory test HEPATITIS C VIRUS SCREENING [employer] Start: 1963 Hepatitis C screen Hepatitis C screen [employer] Phone: Start: 1963 Hepatitis C screening Hepatitis C screen [facility] Start: 1963 Potassium [Moles/Vol] POTASSIUM [employer] [facility] Bacteria identified in Urine by Culture [facility] Chlamydia trachomati s DNA [Presence] in Unspecified specimen by MUKUL with probe detection [facility] Work Phone: Continuous pulse oximetry Pulse oximetry, continuous Respiratory Care Routine Every 4hr until discontinued starting 05/24/2021 [employer] Phone: Comment on above: Every 4hr until discontinued starting CT LUMBAR SPINE WO CONTRAST CT LUMBAR SPINE WO CONTRAST Imaging STAT 04/11/2019 1:43 PM EST [employer] Phone: Neisseria gonorrhoea e DNA [Presence] in Unspecified specimen by MUKUL with probe detection [facility] Work Phone: Oxygen therapy [[facility] Data Set] Initiate Oxygen Therapy Protocol Respiratory Care Routine As Needed until discontinued starting 05/24/2021 [employer] Phone: Comment on above: As Needed until discontinued starting Radiography for bone length studies XR BONE LENGTH STUDY Imaging Routine Hx of total knee arthroplasty, right 01/08/2020 1:37 PM EST [employer] Renal function 2000 panel - Serum or Plasma [facility] Spirometry panel Incentive silverio metry Respiratory Care Routine Every 2hr while awake until discontinued starting 05/24/2021 [employer] Phone: Comment on above: Every 2hr while awake until discontinued starting 05/24/2021 Surgical Pathology Surgical Path ology Lab Routine Release Upon Ordering for 1 Occurrences starting 05/24/2021 [employer] Phone: Comment on above: Release Upon Ordering for 1 Occurrences starting 05/24/2021 Trichomonas vaginali s DNA [Presence] in Unspecified specimen by MUKUL with probe detection [facility] Work Phone: X-ray of right knee XR KNEE RIGH T 3 VIEWS Imaging Routine Hx of total knee arthroplasty, right 01/08/2020 1:37 PM [facility] End: 06-06-2024 XR Lumbar spine AP and Lateral XR LUMBAR LIMITED 2V AP/LAT Radiology Routine Radiculopathy, lumbar region 1 Occurrences starting 05/08/2023 until 06/06/2024 [facility] Work Phone: Comment on above: 1 Occurrences starting 05/08/2023 until 06/06/2024 [facility] Immunizations Immunization Date Immunization Notes Care Provider Jazmin mariscal 05-08-2023 influenza virus vacc ine, unspecified formulation Thomsa Mathew MD Work Phone: [facility] Payers Date Payer Category Payer Self-pay [id number] 2019 Private Health Insurance xxx [id number] [id number] 2019 Worker's Compensation 2019 Government (not [facility] care or Medicaid) [facility] [place] [address] [id number]. [id number] 2019 Unknown HEALTH MANAGEMEN T SOLUTIONS HEALTH MGMT SOLUTIONS [facility]LY [facility] FUNDED xxxxxxxx 2019-Present [phone] [place] [address] xxxxxxxx [id number]. 2.7.3.235816.315 2019 Unknown [id number] 2019 Unknown [id number] 2019 Unknown HEALTH MANAGEMEN T SOLUTIONS HEALTH MGMT SOLUTIONS [facility] xxxxx 2019-Present [phone] [place] [address] xxxxx [id number]. 2.7.3.066706.315 2019 Unknown [id number]. 1.13.159. 2.7.3.379975.315 2019 Worker's Comp Other Managed Care [facility] 1.2.840.697481.1.13.424. 2.7.9.766772.306.315 2019 Unknown [id number] 2014 Private Health Insurance [id number] 2014 Private Health Insurance BRENTON Carlos KATI xxxxxxxxxx 2014-Present [phone] [address] [place] [address] xxxxxxxxxx 1.2.840.664890.1.13.239. 2.7.3.432673.315 2013 Private Health Insurance 1963 Unknown [id number] 2.16.840.1.769553.3.579. 2.176 1963 Unknown [id number] 2.16.840.1.281832.3.579. 2.176 1963 Unknown [id number] 2.16.840.1.130879.3.579. 2.176 1963 Unknown [id number] 2.16.840.1.208316.3.579. 2.196 1963 Unknown [id number] 2.16.840.1.518771.3.579. 2.175 1963 Unknown [id number] 2.16.840.1.453252.3.579. 2.647 1963 Unknown [id number] 2.16.840.1.771338.3.579. 2.593 1963 Unknown [id number] 2.16.840.1.625595.3.579. 2.593 1963 Unknown [id number] 2.16.840.1.491215.3.579. 2.593 1963 Unknown [id number] 2.16.840.1.036949.3.579. 2.593 1963 Unknown [id number] 2.16.840.1.997189.3.579. 2.593 1963 Unknown [id number] 2.16.840.1.374690.3.579. 2.593 1963 Unknown [id number] 2.16.840.1.971087.3.579. 2.593 1963 Unknown [id number] 2.16.840.1.673472.3.579. 2.593 1963 Unknown [id number] 2.16.840.1.199338.3.579. 2.593 1963 Unknown [id number] 2.16.840.1.138823.3.579. 2.593 1963 Unknown [id number] 2.16.840.1.362043.3.579. 2.593 1963 Unknown [id number] 2.16.840.1.280478.3.579. 2.59 1963 Unknown [id number] 2.16.840.1.474360.3.579. 2.59 1963 Unknown [id number] 2.16840.1.078566.3.579. 2.59 1963 Unknown [id number] 2.16840.1.150365.3.579. 2.59 1963 Unknown [id number] 2.840.1.761615.3.579. 259 1963 Unknown [id number] 2.840.1.152612.3.579. 259 1963 Unknown [id number] 2.840.1.582844.3.579. 259 1963 Unknown [id number] 2.840.1.140328.3.579. 2.59 1963 Unknown [id number] 2.840.1.953926.3.579. 259 1963 Unknown [id number] 2.840.1.450626.3.579. 2.59 1963 Unknown [id number] 2.840.1.678395.3.579. 2.59 1963 Unknown [id number] 2.840.1.045845.3.579. 2.59 1963 Unknown [id number] 2.840.1.026893.3.579. 2.1286 1963 Unknown [id number] 2.16840.1.924672.3.579. 2.128 1963 Unknown [id number] 2.840.1.768196.3.579. 2.1286 1963 Unknown [id number] 2.16.840.1.355781.3.579. 2.727 1963 Unknown [id number] 2.16.840.1.376942.3.579. 2.727 1963 Unknown [id number] 2.16.840.1.771084.3.579. 2.727 1963 Unknown [id number] 2.16.840.1.406335.3.579. 2.727 1959 Unknown [id number] 1.2.840.999585.1.13.239. 2.7.3.831297.315 1959 Unknown [id number] Self-pay Self Pay [facility] [id number] Unknown [id number] 2.16.840.1.289311.3.579. 2.531 Unknown [id number] 2.16.840.1.107229.3.579. 2.531 Unknown [id number] 2.16.840.1.189983.19 Social History Date Type Detail Facility Start: 04-11-2019 End: 08-07-2024 Tobacco smoking status WYIS Never smoker [facility] Start: 04-11-2019 End: 05-25-2021 Alcohol intake Lifetime non-drinker (finding) [employer] Phone: Start: 04-11-2019 End: 01-08-2020 History SDOH Alcohol Frequency 1 [employer] Phone: Start: 1965 Sex Assigned At Not on file M [facility] Phone: Start: 11-26-2013 End: 01-08-2020 Tobacco use and exposure Never used [facility] Start: 1965 Sex Assigned At Male F [facility] Start: 04-08-2021 End: 05-24-2021 Exposure to SARS-CoV-2 (event) Not sure [employer] Phone: Start: 11-05-2022 End: 03-25-2023 Sex Assigned At [facility] Start: 01-26-2014 End: 03-25-2023 Alcohol intake Current non-drinker of alcohol (finding) [facility] Tobacco smoking status Never [facility] [place] Start: 11-05-2022 End: 03-25-2023 [facility] Start: 12-05-2023 End: 02-13-2024 Alcoholic beverage intake [facility]dr[facility] (finding[facility] Start: 06-08-2009 End: 09-30-2014 Sex Male (finding) [facility] Sexual Orientation [facility] Medical Equipment Procedure Code Equipment Code Equipment Origin al Text Equipment Identifier Dates CYSTOSCOPY W/ HO MIUM LASER Octavio ARAIZA MD 03/28/20 Unknown Abdomen {[id number] FDA Start: 03-28-2020 Screw Darby 3 Alicia nium Set Merlyn Spine - [id number] Start: 12-07-2022 Screw Darby 3 Serr eladio 6.5mm 50mm Bone Polyaxial Nonsterile Spine - [id number] Start: 12-07-2022 Vitoss Ba2x Bioactive Bone Graft Substitute 5.0cub Cm [id number] Start: 12-07-2022 Cage Tritanium 6 d [id number] Spinal Sterile Latex Free Lumbar Posterior - [id number] Start: 12-07-2022 Cage Tritanium 6 d [id number] Spinal Sterile Latex Free Lumbar Posterior - [id number] Start: 12-07-2022 Screw Darby 3 Serr eladio 6.5mm 45mm Bone Polyaxial Nonsterile Spine - [id number] Start: 12-07-2022 Goals Date Patient Goal Desired Activity /State Functional Status Date Assessment Result Facility 02-04-2023 Functional Status N/A [facility] 12-11-2022 Are you deaf, or do you have serious difficulty hearing No 12/11/2022 12:52 PM EDT Livia Calix RN No [facility] 12-11-2022 Are you blind, or do you have serious difficulty seeing, even when wearing glasses No 12/11/2022 12:52 PM EDT Livia Calix RN No [facility] 12-11-2022 Do you have serious difficulty walking or climbing stairs No 12/11/2022 12:52 PM EDT Livia Calix RN No [facility] 12-11-2022 Do you have difficul ty dressing or bathing No 12/11/2022 12:52 PM EDT Livia Calix RN No [facility] 12-11-2022 Because of a physica l, mental, or emotional condition, do you have difficulty doing errands alone such as visiting a physician's office or shopping No 12/11/2022 12:52 PM EDT Livia Calix RN [facility] 10-17-2022 Functional Status N/A General [facility] 03-19-2022 Functional Status N/A [facility] Mental Status Date Assessment Result Facility 12-11-2022 Because of a physica l, mental, or emotional condition, do you have serious difficulty concentrating, remembering, or making decisions No 12/11/2022 12:52 PM EDT Livia Calix RN [facility] Clinical Notes 05-03-2021 to 08-07-2024 Telephone [...] include: ?8 oz (237 mL) of milk, ripuzhm-jdfdmlycqogn-nlygk milk, and calcium-fortifiedfruit juice. Calcium-fortified means that [...] ?Spinach (cooked), rhubarb, beets, sweet potatoes, and Zimbabwean chard. ?Peanuts. ?Potato chips, cape verdean fries, and baked potatoes with skin on. ?Nuts and nut products. ?Chocolate. If you regularly take a diuretic medicine, make sure to eat at least 1 or 2 servings of fruits or vegetables that are high in potassium each day. These include: ?Avocado. ?Banana. ?[place], prune, carrot, or tomato juice. ?Baked potato. [...] magnesium, fish oil, or vitamin B6. Take lngd-zjz-tsgoowp and prescription medicines only as told by [...] Casseroles. Pizza. Lasagna. Frozen meals. Potato chips. British fries. The items listed above may not [...] provider. Document Revised: 05/24/2022 Document Reviewed: 05/24/2022 [employer] Patient Education 2023 [employer] Follow Up Care 07/03/2024 14:31:41 With:LIDIA JACOBS, Cecelia Jj, URL Address: [address] [place], [place] [address]- When: Unknown [facility] 08-07-2024 Note Patient Education Nephrology Dietary [...] ? 8 oz (237 mL) of milk, bxfgmgw-jmgeowuazmlh-veoqu milk, and calcium-fortifiedfruit juice. Calcium-fortified means that [...] Spinach (cooked), rhubarb, beets, sweet potatoes, and Zimbabwean chard. ? Peanuts. ? Potato chips, cape verdean fries, and baked potatoes with skin on. ? Nuts and nut products. ? Chocolate. ??? If you regularly take a diuretic medicine, make sure to eat at least 1 or 2 servings of fruits or vegetables that are high in potassium each day. These include: ? Avocado. ? Banana. ? [place], prune, carrot, or tomato juice. ? Baked [...] fish oil, or vitamin B6. ??? Take okfe-cpp-ggoyxkx and prescription medicines only as told by your health (more content not included)... [facility] 06-17-2024 Note Orthopedic Surgery Subjective Chief complaint: [...] CT of the right knee completed at [facility] which we do not have access [...] extremiti (more content not included)... [facility] 05-18-2024 Note Orthopedic Surgery Subjective Chief complaint: [...] CT of the right knee completed at [facility] which we do not have access [...] k (more content not included)... [facility] 04-10-2024 Miscellaneous Notes Patient brought in [employer] [...] office visit notes can be submitted via CDEL Medical Records. documented in this encounter [employer] 04-10-2024 Telephone encounter Note Patient brought in [...] visit notes can be submitted via [facility] Medical Records. [facility] 03-03-2024 Miscellaneous Notes Patient called today to follow up on his request for a written statement stating that provider feels that patient is totally disabled. 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 documented in this encounter [facility] 03-03-2024 Telephone encounter Note Patient called today to follow up on his request for a written statement stating that provider feels that patient is totally disabled. 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 [facility] 02-13-2024 History of Present illness Narrative [facility] [address] [place] [address] Patient: Sukhdeep Simental Sex: male : 1965 Age: 58 y.o. PCP: BLAYNE ISABEL MD 02/13/2024 Sukhdeep Simental is here for a(n) follow up for his [facility] work injury. 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 Chief Complaint Patient presents with Back Pain [facility] HPI: 12/07/2022 L2/3 fusion and revised L3/4, S1 at [facility] per patient. Bilateral SI joint injection on 04/17/2021 with 10% relief, pain is worse. 07/07/21 Bilateral L3/4 Medial branch block with no relief. right L 3, 4 nerve root injection on 09/01/2021 with no relef. Back Pain This is a chronic problem. The current episode started more than 1 year ago (surgery 10/16/18 discectomy and 07/10/2019 fusion in [place]). The problem occurs constantly. The problem is [...] disorder Claustrophobia Diabetes mellitus type 2, controlled ([facility]) Fractures Hyperlipidemia Hypertension Joint pain Low back pain Major depression Obesity Osteoarthritis Pulmonary embolism ([facility]) Seasonal allergies Sleep apnea does not use machine Sleep apnea Visual impairment glasses Past Surgical History: Procedure Laterality Date ANKLE SURGERY spurs removed INJECTION BLOCK EPIDURAL CAUDAL STEROID N/A 10/27/2021 Performed by Darren Lackey MD at [facility] INJECTION BLOCK NERVE MEDIAL BRANCH: bilat L 3/4 Bilateral 07/07/2021 Performed by Darren Lackey MD at [facility] INJECTION BLOCK SACROILIAC JOINT Bilateral 04/17/2021 Performed by Darren Lackey MD at [facility] SPINE TRANSFORAMINAL: right L 3,4 Nroot Right 09/01/2021 Performed by Darren Lackey MD at [facility] JOINT REPLACEMENT knees- right x2, left x1 KNEE SURGERY rt knee inf removed tka added rods LITHOTRIPSY LUMBAR DISCECTOMY L4-5 Left 10/16/2018 Performed by Suzanne Silverio DO at [facility] STOMACH SURGERY 04/2021 sleeve Allergies Allergen Reactions [...] Strain: Low Risk (03/28/2022) Re[facility] from [facility] Overall Financial Resource Strain (CARDIA) Difficulty of Paying Living Expenses: Not hard at all Food Insecurity: No Food Insecurity (12/05/2023) Hunger Screening Food Insecurity - Worry: Never True Food Insecurity - Inability: Never True Transportation Needs: Unknown (03/28/2022) Received from [facility], [facility] PRAPARE - Transportation Lack of Transportation (Medical): No Lack of Transportation (Non-Medical): Not on file Physical Activity: Inactive (12/01/2021) Received from [facility], [facility] Exercise Vital Sign Days of Exercise per Week: 0 days Minutes of Exercise per Session: 20 min Stress: No Stress Concern Present (12/01/2021) Received from [facility], [facility] [place] of Occupational Health - Occupational Stress Questionnaire Feeling of Stress : Not at all Social Connections: Moderately Isolated (12/01/2021) Received from [facility], [facility] Social Connection and Isolation Panel [NHANES] Frequency of Communication with Friends and Family: More than three times a week Frequency of Social Gatherings with Friends and Family: Once a week Attends Catholic Services: Never Active Member of Clubs or Organizations: No Attends Club or Organization Meetings: Never Marital Status: Interpersonal Safety: Unknown (04/18/2023) Received from [facility] [place] Safety & Environment Fear of Current or Ex-Partner: Not on file Emotionally Abused: Not on file Physically Abused: Not on file Sexually Abused: Not on file Physically or Sexually Abused: Not on file Housing Instability: Unknown (03/28/2022) Received from [facility], [facility] Housing Stability Vital Sign Unable [...] Agustin 02/13/24 1603 documented in this encounter [facility] 12-05-2023 History of Present illness Narrative [facility] [address] [place] [address] Patient: Sukhdeep Simental Sex: male : 1965 Age: 58 y.o. PCP: BLAYNE ISABEL MD 12/05/2023 Sukhdeep Simental is here for a(n) follow up for his [facility] work injury. He reports he remains about the same as last visit. Chief Complaint Patient presents with Back Pain HPI: 12/07/2022 L2/3 fusion and revised L3/4, S1 at [facility] per patient. Bilateral SI joint injection on 04/17/2021 with 10% relief, pain is worse. 07/07/21 Bilateral L3/4 Medial branch block with no relief. right L 3, 4 nerve root injection on 09/01/2021 with no relef. Back Pain This is a chronic problem. The current episode started more than 1 year ago (surgery 10/16/18 discectomy and 07/10/2019 fusion in [place]). The problem occurs constantly. The problem is [...] disorder Claustrophobia Diabetes mellitus type 2, controlled ([facility]) Fractures Hyperlipidemia Hypertension Joint pain Low back pain Major depression Obesity Osteoarthritis Pulmonary embolism ([facility]) Seasonal allergies Sleep apnea does not use machine Sleep apnea Visual impairment glasses Past Surgical History: Procedure Laterality Date ANKLE SURGERY spurs removed INJECTION BLOCK EPIDURAL CAUDAL STEROID N/A 10/27/2021 Performed by Darren Lackey MD at [facility] INJECTION BLOCK NERVE MEDIAL BRANCH: bilat L 3/4 Bilateral 07/07/2021 Performed by Darren Lackey MD at [facility] INJECTION BLOCK SACROILIAC JOINT Bilateral 04/17/2021 Performed by Darren Lackey MD at [facility] INJECTION SPINE TRANSFORAMINAL: right L 3,4 Nroot Right 09/01/2021 Performed by Darren Lackey MD at [facility] JOINT REPLACEMENT knees- right x2, left x1 KNEE SURGERY rt knee inf removed tka added rods LITHOTRIPSY LUMBAR DISCECTOMY L4-5 Left 10/16/2018 Performed by Suzanne Silverio DO at [facility] STOMACH SURGERY 04/2021 sleeve Allergies Allergen Reactions [...] Strain: Low Risk (03/28/2022) Received from [facility], [facility] Overall Financial Resource Strain (CARDIA) Difficulty of Paying Living Expenses: Not hard at all Food Insecurity: No Food Insecurity (12/05/2023) Hunger Screening Food Insecurity - Worry: Never True Food Insecurity - Inability: Never True Transportation Needs: Unknown (03/28/2022) Received from [facility], [facility] PRAPARE - Transportation Lack of Transportation (Medical): No Lack of Transportation (Non-Medical): Not on file Physical Activity: Inactive (12/01/2021) Received from [facility], [facility] Exercise Vital Sign Days of Exercise per Week: 0 days Minutes of Exercise per Session: 20 min Stress: No Stress Concern Present (12/01/2021) Received from [facility], [facility] [place] of Occupational Health - Occupational Stress Questionnaire Feeling of Stress : Not at all Social Connections: Moderately Isolated (12/01/2021) Received from [facility], [facility] Social Connection and Isolation Panel [NHANES] Frequency of Communication with Friends and Family: More than three times a week Frequency of Social Gatherings with Friends and Family: Once a week Attends Catholic Services: Never Active Member of Clubs or Organizations: No Attends Club or Organization Meetings: Never Marital Status: Interpersonal Safety: Unknown (04/18/2023) Received from [facility] Safety & Environment Fear of Current or Ex-Partner: Not on file Emotionally Abused: Not on file Physically Abused: Not on file Sexually Abused: Not on file Physically or Sexually Abused: Not on file Housing Instability: Unknown (03/28/2022) Received from [facility], [facility] Housing Stability Vital Sign Unable to Pay for Housing in the Last Year: Not on file Number of Places Lived in the Last Year: Not on file In the last 12 months, was there a time when you did not have a steady place to sleep or slept in a detention (including now)?: No Review of Systems Constitutional: [...] Agustin 12/12/23 0942 documented in this encounter [facility] 10-07-2023 Telephone encounter Note Pt phoned to ensure todays appt was via phone as noted in appt. Pt unable to manage computer. [facility] 10-07-2023 Miscellaneous Notes Pt phoned to ensure todays appt was via phone as noted in appt. Pt unable to manage computer. documented in this encounter [facility] 10-04-2023 Telephone encounter Note [facility] report XR Lumbar Spine 2-3v scanned to Epic [facility] 10-04-2023 Miscellaneous Notes [place] report XR Lumbar Spine 2-3v scanned to Epic documented in this encounter [facility] 08-15-2023 History of Present illness Narrative [facility] [address] [place] [address] Patient: Sukhdeep Simental Sex: male : 1965 Age: 57 y.o. PCP: BLAYNE ISABEL MD 08/15/2023 Sukhdeep Simental is here for a(n) follow up for his [facility] work injury. He reports he has pain higher than before surgery. Chief Complaint Patient presents with Back Pain HPI: 12/07/2022 L2/3 fusion and revised L3/4, S1 at [facility] per patient. Bilateral SI joint injection on 04/17/2021 with 10% relief, pain is worse. 07/07/21 Bilateral L3/4 Medial branch block with no relief. right L 3, 4 nerve root injection on 09/01/2021 with no relef. Back Pain This is a chronic problem. The current episode started more than 1 year ago (surgery 10/16/18 discectomy and 07/10/2019 fusion in [place]). The problem occurs constantly. The problem has [...] disorder Claustrophobia Diabetes mellitus type 2, controlled ([facility]) Fractures Hyperlipidemia Hypertension Joint pain Low back pain Major depression Obesity Osteoarthritis Pulmonary embolism ([facility]) Seasonal allergies Sleep apnea does not use machine Sleep apnea Visual impairment glasses Past Surgical History: Procedure Laterality Date ANKLE SURGERY spurs removed INJECTION BLOCK EPIDURAL CAUDAL STEROID N/A 10/27/2021 Performed by Darren Lackey MD at [facility] INJECTION BLOCK NERVE MEDIAL BRANCH: bilat L 3/4 Bilateral 07/07/2021 Performed by Darren Lackey MD at [facility] INJECTION BLOCK SACROILIAC JOINT Bilateral 04/17/2021 Performed by Darren Lackey MD at [facility] SPINE TRANSFORAMINAL: right L 3,4 Nroot Right 09/01/2021 Performed by Darren Lackey MD at [facility] JOINT REPLACEMENT knees- right x2, left x1 KNEE SURGERY rt knee inf removed tka added rods LITHOTRIPSY LUMBAR DISCECTOMY L4-5 Left 10/16/2018 Performed by Suzanne Silverio DO at [facility] STOMACH SURGERY 04/2021 sleeve Allergies Allergen Reactions [...] Low Risk (03/28/2022) Received from [facility], [facility] Overall Financial Resource Strain (CARDIA) Difficulty of Paying Living Expenses: Not hard at all Food Insecurity: No Food Insecurity (08/15/2023) Hunger Screening Food Insecurity - Worry: Never True Food Insecurity - Inability: Never True Transportation Needs: Unknown (03/28/2022) Received from [facility], [facility] PRAPARE - Transportation Lack of Transportation (Medical): No Lack of Transportation (Non-Medical): Not on file Physical Activity: Inactive (12/01/2021) Received from [facility], [facility] Exercise Vital Sign Days of Exercise per Week: 0 days Minutes of Exercise per Session: 20 min Stress: No Stress Concern Present (12/01/2021) Received from [facility], [facility] [place] of Occupational Health - Occupational Stress Questionnaire Feeling of Stress : Not at all Social Connections: Moderately Isolated (12/01/2021) Received from [facility], [facility] Social Connection and Isolation Panel [NHANES] Frequency of Communication with Friends and Family: More than three times a week Frequency of Social Gatherings with Friends and Family: Once a week Attends Catholic Services: Never Active Member of Clubs or Organizations: No Attends Club or Organization Meetings: Never Marital Status: Interpersonal Safety: Unknown (04/18/2023) Received from [facility] [place] Safety & [place] Fear of Current or Ex-Partner: Not on file Emotionally Abused: Not on file Physically Abused: Not on file Sexually Abused: Not on file Physically or Sexually Abused: Not on file Housing Instability: Unknown (03/28/2022) Received from [facility], [facility] Housing Stability Vital Sign Unable to Pay for Housing in the Last Year: Not on file Number of Places Lived in the Last Year: Not on file In the last 12 months, was there a time when you did not have a steady place to sleep or slept in a detention (including now)?: No Review of Systems Constitutional: [...] Agustin 08/15/23 1311 documented in this encounter [facility] 07-30-2023 Telephone encounter Note Called Sukhdeep, no answer, left VM [facility] Work Phone: 07-30-2023 Miscellaneous Notes Called Sukhdeep, no answer, left VM Have sent XR Lumbar order to [facility] fax # [phone] as requested from patient. Pt phoned regarding upcoming visit 10/06 [employer] appt. Pt unable to manage virtual visit asking for telephone visit. Pt asking how far in advance to do X-Ray. Pt will have X-Ray done locally at [facility]. Please call and advise Pt phone # [phone] documented in this encounter [facility] 07-30-2023 Telephone encounter Note Have sent XR Lumbar order to [facility] fax # [phone] as requested from patient. [facility] 07-30-2023 Telephone encounter Note Pt phoned regarding upcoming visit 10/06 [employer] appt. Pt unable to manage virtual visit asking for telephone visit. Pt asking how far in advance to do X-Ray. Pt will have X-Ray done locally at [facility]. Please call and advise Pt phone # [phone] [facility] 07-26-2023 Telephone encounter Note Office note faxed. Faxed verification received. [facility] 07-26-2023 Miscellaneous Notes Office note faxed. Faxed verification received. Printed for review. Received request from [employer] needing more info, in epic for review. documented in this encounter [facility] 07-23-2023 Telephone encounter Note Printed for review. [facility] 07-23-2023 Telephone encounter Note Received request from [employer] needing more info, in [employer] for review. [facility] 05-08-2023 History of Present illness Narrative SPINE SURGERY FOLLOW UP This is a virtual visit using Audio Only Visit. It required patient-provider interaction for the medical decision making as documented below. I have communicated my name and active licensure. The patient's identity and physical location were verified at the time of this visit. Either the patient or their legal practice representative has been informed of the risks [...] visit. Either the patient or their legal practice representative has been informed of the risks [...] 4:00 PM PAGER: documented in this encounter [facility] 05-08-2023 Miscellaneous Notes A letter was received from the law office of Jasper Loredo. 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 The information was reviewed by Nadiya Flynn PA-C and he would not like to amend the [facility] claim to allow the above mentioned condition. Call placed to the office of Jasper Loredo to inform him of provider's decision. No answer at the time call was made. Message left. documented in this encounter [facility] [employer] [facility] 05-08-2023 Telephone encounter Note A letter was received from the law office of Jasper Loredo. 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 The information was reviewed by Nadiya Flynn PA-C and he would not like to amend the [facility] claim to allow the above mentioned condition. Call placed to the office of Jasper Loredo to inform him of provider's decision. No answer at the time call was made. Message left. [facility] 05-07-2023 Miscellaneous Notes Call received from Hannah, patient's caseworker protective services. She called as patient's MEDCO-14 is expiring soon. Hannah is informed that patient called about this and an updated MEDCO-14 was completed and faxed on 05/03/2023. Hannah states she is his caseworker protective services and would like information sent to her [...] [facility] 05-07-2023 Telephone encounter Note Call received from Hannah, patient's caseworker protective services. She called as patient's MEDCO-14 is expiring soon. Hannah is informed that patient called about this and an updated MEDCO-14 was completed and faxed on 05/03/2023. Hannah states she is his caseworker protective services and would like information sent to her [...] new dates for restrictions will be 05/15/2023-11/14/2023. [facility] [employer] [facility] 04-18-2023 Miscellaneous Notes Signed form faxed to number requested. Faxed verification received. Printed for review and signature. Received PT Certification from [facility]. Scanned to chart for provider signature. documented in this encounter [facility] 04-16-2023 Miscellaneous Notes Received imaging disc by mail from [facility]. Disc contains CT Lumbar spine done on 04/03/23. Will place in nurse folder in [address]. documented in this encounter [facility] 04-09-2023 Miscellaneous Notes Called & spoke with Sukhdeep Asked him to obtain imaging disc & send to our office. Will require images to be uploaded to assess for bony fusion at previous surgical site and adjacent segment disease. Received CT Lumbar Spine Report from [facility], in epic to review. documented in this encounter [facility] 02-14-2023 History of Present illness Narrative [facility] [address] [place] [address] Patient: Sukhdeep Simental Sex: male : 1965 Age: 57 y.o. PCP: BLAYNE ISABEL MD 02/14/2023 Sukhdeep Simental is here for a 6 month follow up for his [facility] work injury. Chief Complaint Patient presents with Back Pain HPI: 12/07/2022 L2/3 fusion and revised L3/4, S1 at [facility] per patient. Bilateral SI joint injection on 04/17/2021 with 10% relief, pain is worse. 07/07/21 Bilateral L3/4 Medial branch block with no relief. right L 3, 4 nerve root injection on 09/01/2021 with no relef. Back Pain This is a chronic problem. The current episode started more than 1 year ago (surgery 10/16/18 discectomy and 07/10/2019 fusion in [place]). The problem occurs constantly. The problem has [...] disorder Claustrophobia Diabetes mellitus type 2, controlled ([facility]) Fractures Hyperlipidemia Hypertension Joint pain Low back pain Major depression Obesity Osteoarthritis Pulmonary embolism ([facility]) Seasonal allergies Sleep apnea does not use machine Sleep apnea Visual impairment glasses Past Surgical History: Procedure Laterality Date ANKLE SURGERY spurs removed INJECTION BLOCK EPIDURAL CAUDAL STEROID N/A 10/27/2021 Performed by Darren Lackey MD at [facility] INJECTION BLOCK NERVE MEDIAL BRANCH: bilat L 3/4 Bilateral 07/07/2021 Performed by Darren Lackey MD at [facility] INJECTION BLOCK SACROILIAC JOINT Bilateral 04/17/2021 Performed by Darren Lackey MD at [facility] INJECTION SPINE TRANSFORAMINAL: right L 3,4 Nroot Right 09/01/2021 Performed by Darren Lackey MD at [facility] JOINT REPLACEMENT knees- right x2, left x1 KNEE SURGERY rt knee inf removed tka added rods LITHOTRIPSY LUMBAR DISCECTOMY L4-5 Left 10/16/2018 Performed by Suzanne Silverio DO at [facility] STOMACH SURGERY 04/2021 sleeve Allergies Allergen Reactions [...] Rodriguez CNA 02/14/23 1252 SCARLET Agustin 02/21/23 1157 documented in this encounter [facility] 02-07-2023 Miscellaneous Notes C9 for physical therapy faxed to [employer]. Faxed verification received. documented in this encounter [facility] 02-07-2023 History of Present illness Narrative SPINE [...] which included preparing to see the patient, [id number] patient care, completing clinical documentation, obtaining and/or reviewing separately obtained history, performing a medically appropriate examination, counseling and educating the patient/family/caregiver, and ordering medications, tests, or procedures. SIGNATURE: Riddhi Goss APRN.CNP PATIENT NAME: Sukhdeep Simental DATE: February 07, 2023 TIME: 2:39 PM PAGER: documented in this encounter [facility] 02-04-2023 Hospital Discharge instructions Patient Education 02/04/2023 [...] include: ?8 oz (237 mL) of milk, yobnzao-hgyxzenjuhto-rzgqt milk, and calcium-fortifiedfruit juice. Calcium-fortified means that [...] ?Spinach (cooked), rhubarb, beets, sweet potatoes, and [place] chard. ?Peanuts. ?Potato chips, cape verdean fries, and baked potatoes with skin on. ?Nuts and nut products. ?Chocolate. If you regularly take a diuretic medicine, make sure to eat at least 1 or 2 servings of fruits or vegetables that are high in potassium each day. These include: ?Avocado. ?Banana. ?[place], prune, carrot, or tomato juice. ?Baked potato. [...] magnesium, fish oil, or vitamin B6. Take [id number] and prescription medicines only as told by [...] Casseroles. Pizza. Lasagna. Frozen meals. Potato chips. British fries. The items listed above may not [...] provider. Document Revised: 05/24/2022 Document Reviewed: 05/24/2022 ElseLlesiant Patient Education 2022 KLab. Follow Up Care 07/27/2022 14:20:34 With:LIDIA JACOBS, Cecelia Jj, URL Address: [facility] [address] , [place] [address]- When:Within 1 Year(s) Comments:w/CT AP w/o Con [facility] 01-23-2023 Miscellaneous Notes Received fax from [facility]. Scanned into [place]. Also received a RTW from [facility]. Scanned into [place] as well. documented in this encounter [facility] 12-21-2022 Miscellaneous Notes Patient called with complaints of [facility] not allowing him to hand picker the pain medication that was sent [...] with an update. documented in this encounter [facility] 12-20-2022 History of Present illness Narrative SPINE [...] which included preparing to see the patient, [id number] patient care, completing clinical documentation, obtaining and/or reviewing separately obtained history, performing a medically appropriate examination, counseling and educating the patient/family/caregiver, and ordering medications, tests, or procedures. SIGNATURE: Singh Morgan PA-C PATIENT NAME: Sukhdeep Simental DATE: December 20, 2022 TIME: 2:58 PM PAGER: documented in this encounter [facility] 12-17-2022 Miscellaneous Notes Forms completed and signed by provider. Faxed to number provided and and Sukhdeep notified via voice mail, as requested. Scanned into [employer]. Form completed. Awaiting signature. Printed for review. Received FMLA form by fax from patient's . Scanned to patient's chart for review and completion. documented in this encounter [facility] 12-13-2022 Miscellaneous Notes Spoke with patient at [...] a kenya. Xi Schrader PA-C Patient at [phone] is requesting a call back. He had back surgery on 12-07. He states for the past 2 days his right ring and little finger has been numb. documented in this encounter [facility] 12-12-2022 Miscellaneous Notes Spoke with pharmacy and was informed that medication is approved. No prior authorization needed. Patient called stating pharmacy needs a prior authorization for oxycodone 15 mg. I called the pharmacy on 12/12/2022 at 9:40 AM. Insurance will not pay for the frequency of medication written. They will cover q12h. Prescription changed to oxycodone 15 mg 12h. [id number] - [place] [id number] - [address] - [phone] Pharmacist at [facility] wanted to inform the office that this patient already takes Percocet 10-325 every 6 hours, picked it up 13 days ago. They tried running the Percocet but his insurance will not cover both. Please call them back with new instructions. documented in this encounter [facility] 12-11-2022 Note HNO ID: [id number] Author: Lulu Oviedo MD Service: General Internal [...] 10 mg tab( (more content not included)... [facility] 12-10-2022 Note HNO ID: [id number] Author: Lulu Oviedo MD Service: General Internal [...] 10% iv bolu (more content not included)... [facility] 12-09-2022 Note HNO ID: [id number] Author: Alyssa Tim APRN.WALL CRANE OPERATOR Service: Neurosurgery Author Type: Nurse Practitioner [...] is currently not well controlled despite Dilaudid RESEARCH ASSOCIATE QUALITY CONTROL QC and Toradol. He denies new weakness, numbness, [...] mg ORAL q 8 H Alyssa Tim APRN.WALL CRANE OPERATOR 1,000 mg at 12/09/22 0559 aluminum-magnesium hydroxide-simethicone 200-200-20 mg/5 mL 30 mL 30 mL ORAL q 6 H PRN Archual, Alyssa, VAPOR COATER.WALL CRANE OPERATOR bisacodyl EC 10 mg tab(s) (DULCOLAX) 10 mg ORAL DAILY PRN Archual, Alyssa, VAPOR COATER.WALL CRANE OPERATOR dextrose 40 % 15 g 15 g ORAL PRN Archual, Alyssa, VAPOR COATER.WALL CRANE OPERATOR Or glucagon 1 mg injection 1 mg INTRAMUSCULAR PRN Archual, Alyssa, VAPOR COATER.WALL CRANE OPERATOR Or dextrose 10% iv bolus 12.5 g INTRAVENOUS PRN Archual, Alyssa, VAPOR COATER.WALL CRANE OPERATOR docusate sodium 100 mg cap(s) (COLACE) 100 mg ORAL BID Thomas Mathew MD 100 mg at 12/09/22 0821 doxazosin 4 mg tab(s) (CARDURA) 4 mg ORAL DAILY Thomas Mathew MD 4 mg at 12/09/22 0821 fentaNYL RESEARCH ASSOCIATE QUALITY CONTROL QC 20 mcg/mL in NaCl 0.9% 100 mL (SUBLIMAZE) INTRAVENOUS CONTINUOUS Archual, Alyssa, VAPOR COATER.WALL CRANE OPERATOR ferrous sulfate 325 mg tab(s) 325 mg ORAL DAILY Archual, Alyssa, VAPOR COATER.WALL CRANE OPERATOR 325 mg at 12/09/22 0821 heparin 5,000 Units injection 5,000 Units SUBCUTANEOUS q 12 H Archual, Alyssa, VAPOR COATER.WALL CRANE OPERATOR 5,000 Units at 12/09/22 0821 hydrOXYzine HCl 25 mg tab(s) (ATARAX) 25 mg ORAL q 6 H PRN Archual, Alyssa, VAPOR COATER.WALL CRANE OPERATOR insulin lispro injection (rapid acting) (HumaLOG) SUBCUTANEOUS w MEALS AND HS Archual, Alyssa, VAPOR COATER.WALL CRANE OPERATOR 1 Units at 12/07/22 1803 lactated ringers iv infusion 75 mL/hr INTRAVENOUS CONTINUOUS Thomas Mathew MD 75 mL/hr at 12/09/22 1018 75 mL/hr at 12/09/22 1018 methocarbamol 750 mg tab(s) (ROBAXIN) 750 mg ORAL QID Archual, Alyssa, VAPOR COATER.WALL CRANE OPERATOR NaCl 0.9% iv flush bag 20 mL INTRAVENOUS PRN Thomas Mathew MD naloxone 0.1 mg injection (NARCAN) 0.1 mg INTRAVENOUS q 2 MIN PRN Archual, Alyssa, VAPOR COATER.WALL CRANE OPERATOR omeprazole 20 mg cap(s) (PriLOSEC) 20 [...] packet 17 g ORAL DAILY Archual, Alyssa, VAPOR COATER.WALL CRANE OPERATOR 17 g at 12/09/22 0821 simvastatin 10 mg tab(s) (ZOCOR) 10 mg ORAL AT BEDTIME Thomas Mathew MD 10 mg at 12/08/222019 tamsulosin 0.4 mg cap(s) (FLOMAX) 0.4 mg ORAL DAILY Thomas Mathew MD 0.4 mg at 12/09/22 08 traZODone 150 mg tab(s) (DESYREL) 150 mg ORAL AT BEDTIME Archual, Alyssa, VAPOR COATER.WALL CRANE OPERATOR 150 mg at 12/08/222019 valsartan 80 mg tab(s) (DIOVAN) 80 mg ORAL DAILY Archual, Alyssa, VAPOR COATER.WALL CRANE OPERATOR 80 mg at 12/09/22 08 ASSESSMENT [...] pain control, Pain management consulted, started Fentanyl RESEARCH ASSOCIATE QUALITY CONTROL QC today due to continued uncontrolled pain, Robaxin and Tylenol scheduled, no further Toradol due to CKD 3. -Check postop lumbar XR today -Medicine consult for post-operative medical management -Discharge planning, anticipate discharge home in 1-2 more days. Plan of care discussed with Dr. Mathew via phone. Medication and Non-Pharmacologic VTE Prophylaxis/Anticoagulants 10/25/21 1215 vte pharmacologic prophylaxis contraindicated (fl,oh) (more content not included)... [facility] 12-08-2022 Note HNO ID: [id number] Author: Alyssa Tim APRN.OLGA Service: Neurosurgery Author [...] on POD #2 -Post-operative pain control, Dilaudid RESEARCH ASSOCIATE QUALITY CONTROL QC discontinued. Continue Tylenol, Toradol IV, and Robaxin PRN. Start oxycodone every 3 hours PRN and Dilaudid IV PRN. -Check postop XR tomorrow. -Medicine consult for post-operative medical management -Discharge planning, anticipate discharge home in 1-2 more days. Plan of care discussed with Dr Hopper via phone. Medication and Non-Pharmacologic VTE Prophylaxis/Anticoagulants 10/25/21 1215 vte pharmacologic prophylaxis contraindicated (de,ky) 10/25/21 1215 pneumatic compression stockings (de,ky) 10/25/21 1215 activity - mobilize patient (de,ky) VTE Prophylaxis: VTE prophylaxis appropriate SIGNATURE: Alyssa Tim APRN.CNP DATE: December 08, 2022 TIME: 1:50 PM [facility] 12-08-2022 Note HNO ID: [id number] Author: Note, Interface Service: ? Author Type: ? Type: Progress Notes Filed: 12/08/2022 3:59 AM Note Text: Epic Scheduled Downtime: 12/08/2022 1:00:00 AM to 12/08/2022 1:28:00 AM [facility] 12-07-2022 Note HNO ID: [id number] Author: Aaron Noriega AA Service: Anesthesiology Author Type: Burial Vault Deliverer And Installer Type: Anesthesia Procedure Notes Filed: 12/07/2022 8:04 [...] December 07, 2022 TIME: 8:03 AM CSN: [id number] [facility] 12-06-2022 Evaluation note Encounter Date Diagnosis Assessment [...] has adequate iron stores. 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 12/07/2022 documented as of this encounter (statuses as of 12/18/2022) [address]27-2023 History of Past illness Narrative* Problem Noted Date Diagnosed Date Resolved Date Secondary hyperparathyroidism 11/21/2022 11/21/2022 11/21/2022 Corneal edema, unspecified 12/10/2013 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 12/07/2022 documented as of this encounter (statuses as of 12/21/2022) [address]27-2023 History of Past illness Narrative* Problem Noted Date Diagnosed Date Resolved Date Secondary hyperparathyroidism 11/21/2022 11/21/2022 11/21/2022 Corneal edema, unspecified 12/10/2013 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 12/07/2022 documented as of this encounter (statuses as of 12/21/2022) [address]27-2023 History of Past illness Narrative* Problem Noted Date Diagnosed Date Resolved Date Secondary hyperparathyroidism 11/21/2022 11/21/2022 11/21/2022 Corneal edema, unspecified 12/10/2013 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 12/07/2022 documented as of this encounter (statuses as of 01/24/2023) [address]27-2023 History of Past illness Narrative* Problem Noted Date Diagnosed Date Resolved Date Secondary hyperparathyroidism 11/21/2022 11/21/2022 11/21/2022 Corneal edema, unspecified 12/10/2013 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 12/07/2022 documented as of this encounter (statuses as of 02/08/2023) [address]27-2023 History of Past illness Narrative* Problem Noted Date Diagnosed Date Resolved Date Secondary hyperparathyroidism 11/21/2022 11/21/2022 11/21/2022 Corneal edema, unspecified 12/10/2013 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 12/07/2022 documented as of this encounter (statuses as of 02/09/2023) [facility]09-27-2023 History of Past illness Narrative* Problem Noted Date Diagnosed Date Resolved Date Secondary hyperparathyroidism 11/21/2022 11/21/2022 11/21/2022 Corneal edema, unspecified 12/10/2013 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 12/07/2022 documented as of this encounter (statuses as of 04/09/2023) [facility]-27-2023 History of Past illness Narrative* Problem Noted Date Diagnosed Date Resolved Date Secondary hyperparathyroidism 11/21/2022 11/21/2022 11/21/2022 Corneal edema, unspecified 12/10/2013 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 12/07/2022 documented as of this encounter (statuses as of 04/18/2023) [facility]-2023 History of Past illness Narrative* Problem Noted Date Diagnosed Date Resolved Date Secondary hyperparathyroidism 11/21/2022 11/21/2022 11/21/2022 Corneal edema, unspecified 12/10/2013 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 Given both written and verbal instructions re : Skin prep, wound care, pain management and post op restrictions. Provided to patient: [facility] Surgery Guide, skin prep supplies, Spine Surgery Pre/post op education packet. Yes Reviewed with patient to report to the registration desk for surgery? Yes. Reviewed with the patient that a surgery enrollment representative will call the working day prior [...] lab work : To be completed at [facility]. Questions answered. Patient verbalizes understanding via teach back. Additional comments : Informed to call with any questions or concerns. Juan Pablo Nova RN [facility] History of Present illness Narrative* Thomas Mathew [...] TIME: 2:20 PM PAGER: [facility]23 NoteHNO ID: [id number] Author: Sonya Wilhelm APRN.WALL CRANE OPERATOR Service: ? Author Type: Nurse Practitioner [...] schedule with first available lumbar revision surgeon. [facility]08-22-2023 History of Present illness Narrative* Sonya Wilhelm APRN.WALL CRANE OPERATOR - 10/16/2022 3:51 PM EDT Per [...] Simental Are you being referred by a [facility] for Spine Health Provider or Pain Management [...] the MRI/CT/myelogram was completed: [facility] Address: [facility] [place] [address] MRI/CT/myelogram viewable in Epic: No If not, please provide [phone] to fax in imaging reports for review. [...] physical therapy was completed Injection [facility] Address: [address] [address] Have you tried any other kinds of [...] of where the surgery was completed: [facility] Spine, Neurosurgery Address: [address] [facility] [address] [place] [id number] Additional Comments [phone] (Home Phone) [facility]23 NoteHNO ID: [id number] Author: Adonis Lopez Service: ? Author Type: ? Type: Progress Notes Filed: 10/16/2022 4:03 PM Note Text: Patient name: Sukhdeep Simental Are you being referred by a [facility] for Spine Health Provider or Pain Management [...] the MRI/CT/myelogram was completed: [facility] Address: [address] [place] [address] MRI/CT/myelogram viewable in Epic: No If not, please provide [phone] to fax in imaging reports for review. [...] physical therapy was completed Injection [facility] Address: [address] [place] [address] Have you tried any other kinds of [...] of where the surgery was completed: 2019 [facility], Neuro[facility] Address: [address] [place] [address] Additional Comments [phone] (Home Phone)[facility]04-27-2023 Evaluation note* Encounter Date Diagnosis [...] will continue to monitor without any medications. [facility] Other 01-23-2023 Hospital Discharge instructions Patient Education [...] include: ?Spinach. ?Rhubarb. ?Beets. ?Potato chips and cape verdean fries. ?Nuts. If you regularly take a diuretic medicine, make sure to eat at least 1 2 fruits or vegetables high in potassium each day. These include: ?Avocado. ?Banana. ?[place], prune, carrot, or tomato juice. ?Baked potato. [...] Casseroles. Pizza. Lasagna. Frozen meals. Potato chips. British fries. Summary You can reduce your risk [...] 06/08/2011 Document Revised: 06/03/2019 Document Reviewed: 01/22/2017 [employer] Patient Education 2020 KLab. Follow Up Care 03/15/2022 09:49:40 With:LIDIA JACOBS, Cecelia Jj, URL Address: [facility] [address] [place] [address]- When: Unknown [facility] 01-16-2023 NoteIndication: Renal mass. Comparison: 07/14/2021 [...] Electronically authenticated by: CITLALI GIRON Date: 2022-03-12 18:03[facility]10-21-2022 Evaluation note* Encounter Date Diagnosis Assessment [...] be cultured for infection, gonorrhea, chlamydia, yeast. [facility] Other 08-31-2022 Evaluation note* Encounter Date Diagnosis [...] paraproteinemia due to the CKD and anemia. [facility] Other 04-01-2022 History of Present illness Narrative* [...] from the original note were not included. [employer] Techn[employer] Progress Note Date: 05/26/2021 Patient name: Sukhdeep [...] Ok for d/c from cardiology standpoint. [employer] [phone] * Octavio Mcclellan, - 05/25/2021 5:42 PM [...] Foreman RN - 05/25/2021 8:32 AM EDT [employer] Process Technician Documentation Note Admission Dx: S/P laparoscopic sleeve [...] on an annual basis Tona Foreman RN [employer] Process Technician * Sonya Ramírez, DO - 05/25/2021 6:45 [...] Day of Surgery/Procedure As a patient at [facility] you can expect quality medical and nursing care that is centered on your individual needs. Our goal is to make your surgical experience as comfortableas possible . Directions to the Surgery Center [facility] is located at [address] [place] [address]. Please pull into the Emergency parking lot and stop at the hand tool filer ojeda. We offer free hand tool filer service for all our surgery patients, if you choose not to have hand tool filer parking we have additional parking across the street.You will enter the facility under the blue canopy/walkway following the [facility] sign. Please stop at the healthcare receptionist desk where you will be checked in by the staff. If you have any questions please call [phone]. Transportation after your procedure. You will need a friend or family member to drive you home after your procedure. Your tractor driver must be18 years of age or [...] You may shave your face or neck. Spring your teeth but do not swallow water. [...] or the day of surgery, please call [phone], or [phone] documented in this [facility] [employer] Phone: 1(724) 638-626103-31-2022 Hospital Discharge instructions* Discharge Instr - KAMARI* Jenny Lentz RN - 05/25/2021 5:44 PM EDT PHYSICIAN SIGNATURE: * Additional Instructions* Jenny Lentz, RN - 05/26/2021 Discharge Instructions for Bariatric Surgery You had a Laparoscopic Sleeve Gastrectomy (43261) surgery to treat obesity. Recovery from this [...] scheduled appointment, please call the office at [phone]. Call Your Doctor If Any of the [...] sent through Care Everywhere. * Enoxaparin (Lovenox) (Burmese) * metoprolol (oral/injection) (Burmese) * acetaminophen and oxycodone (Burmese) documented in this [facility] Phone: 1(546) 121-298403-09-2022 Hospital Discharge instructions* Instructions* Etelvina Ledbetter APRN - WALL CRANE OPERATOR - 05/03/2021 Pre-operative Instructions Please arrive [...] list you provided today, ACCORDING TO YOUR OVEN TECHNICIAN, PLEASE HOLD ELIQUIS 3 DAYS PRIOR [...] public transportation ALONE is not acceptable. -Your tractor driver must be 18 years of age [...] Day of Surgery/Procedure As a patient at [facility] you can expect quality medical and nursing care that is centered on your individual needs. Our goal is to make your surgical experience as comfortableas possible . Directions to the Surgery Center [facility] is located at [address] [place] [address]. Please pull into the Emergency/Surgery Center parking lot and stop at the [employer] ojeda. We offer free hand tool filer service for all our surgery patients, if you choose not to have hand tool filer parking we have additional parking across the [...] pharmacy bottles in a zip lock bag. Spring your teeth but do not swallow water. [...] DAY OF your surgery, you may call [phone] documented in this [facility] Work Phone: evaluation + Plan note Future Appointments Appointment Date:07/16/2022 02:45:00 PM Scheduled Provider:Cecelia MURILLO MD Location:[facility] Appointment Type:URO Office Visit [facility] evaluation + Plan note Future Appointments Appointment Date:02/04/2023 09:15:00 AM Scheduled Provider:Cecelia MURILLO MD Location:[facility] Appointment Type:URO Office Visit General Surgery [place] Evaluation + Plan note Future Appointments Appointment Date:02/03/2024 10:30:00 AM Scheduled Provider:Cecelia MURILLO MD Location:[facility] Appointment Type:URO Office Visit Diagnostic Tests Pending * PSA Total 02/04/23 [facility] evaluation + Plan note Future Appointments Appointment Date:08/13/2025 10:45:00 AM Scheduled Provider:Cecelia MURILLO MD Location:[facility] Appointment Type:URO Office Visit Diagnostic Tests Pending * PSA Total 06/25/25 [facility] evalxijnwg note* Diagnosis Pre-op chest exam Pre-operative respiratory examination documented [facility] encounter [facility] Work Phone: evaljrwjcy note* Diagnosis S/P laparoscopic sleeve gastrectomy- Primary documented in this encounter [facility] Phone: evaluation noteNo InformationNort Amadesa Other evaluation noteNo assessment information available [facility] Work Phone: Evaluation note* Diagnosis Lumbar adjacent segment disease with spondylolisthesis- Primary Lumbar adjacent segment disease with spondylolisthesis [facility]* Diagnosis Lumbar adjacent segment disease with spondylolisthesis- Primary [facility]* Diagnosis Lumbar adjacent segment disease with spondylolisthesis- Primary documented in this encounter [facility] note* Diagnosis Radiculopathy, lumbar region- Primary Thoracic or lumbosacral neuritis or radiculitis, unspecified [facility]* Diagnosis Onset Date Resolution Status CKD (chronic kidney disease) stage 3, GFR 30-59 ml/min acute [id number] acute Hyperuricemia acute Microscopic hematuria acute Nephrolithiasis acute Secondary hyperparathyroidism acute Type 2 diabetes 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 acute [facility] Work Phone: evaluyhfvm note* Diagnosis Spinal stenosis, lumbar region, with neurogenic claudication- Primary [facility]* Diagnosis Spinal stenosis, lumbar region, with neurogenic claudication- Primary [facility]* Diagnosis Spinal stenosis, lumbar region, with neurogenic claudication- Primary [facility] Narrative - Reported* Type [...] GASTRIC SLEEVE 04/2021 Hospitalization History SEE ABOVE [facility] Other [facility] general Narrative - Reported* Type Description Date [...] REPLACEMENT 04/16 22 Hospitalization History SEE ABOVE [facility] Other Hospital course Narrative No data available for this section [facility] Hospital Discharge instructions No data available for this section General Surgery [place] InstructionsNot on filedocumented in this encounter [facility] filedocumented in this encounter [facility]Not on filedocumented in this encounter [facility]ructionsNot on filedocumented in this encounter [facility] No data available for this section [facility] reason for referral (narrative)* Diagnostic Procedure Only (Routine) - Pending Review Specialty Diagnoses / Procedures Referred By Enoch luna Referred To Contact XR IMAGING Diagnoses Lumbar adjacent segment disease with spondylolisthesis Procedures XR LUMBAR LIMITED 2V AP/LAT RADEX SPINE LUMBOSACRAL 2/3 VIEWS Singh Morgan PA-C [address] [id number] Xr Imaging [place] [address] Referral ID Status Reason Start Date Expiration Date Visits Requested Visits Authorized [id number] Pending Review Auto-Generat ed Referral 3 01/19/2024 1 1 [facility] for referral (narrative)* Diagnostic Procedure Only (Routine) - Pending Review Specialty Diagnoses / Procedures Referred By Enoch luna Referred To Contact XR IMAGING Diagnoses Radiculopathy, lumbar region Procedures XR LUMBAR LIMITED 2V AP/LAT RADEX SPINE LUMBOSACRAL 2/[place] [address] [place] [address] [place] [address] Referral ID Status Reason Start Date Expiration Date Visits Requested Visits Authorized [id number] Pending Review Auto-Generat ed Referral 05/08/2023 06/06/2024 1 1 [facility] for visit Narrative* Auth/Cert Specialty Diagnoses / Procedures Referred By Contac t Referred To Contact Diagnoses Morbid obesity (HCC) Type II diabetes circulatory disorder causing erectile dysfunction (HCC) Hypertension MORBID OBESITY, TYPE II DIABETES, HYPERTENSION Procedures DC LAP, JUAN RESTRICT PROC, LONGITUDINAL GASTRECTOMY XI ROBOTIC LAPOROSCOPIC GASTRECTOMY SLEEVE, LIVER BIOPSY, EGD- GI SCHEDULED Octavio Mcclellan DO [address] [facility] [address] [place] [address] TUBE [address] [place] [address] Referral ID Status Reason Start Date Expiration Date Visits Re quested Visits Authorized [id number] 1 1 [employer] Phone: Advance Directives No Advanced Directives Records FoundDocuments on File Type Date Recorded Patient Video Specialist Expl anation Advance Directives and Living Will Power of Memory Care Program Resident Advance Directive Response Recorded Date/ Time Advance Directives No September 16 2:32pm Documents on File Type Date Recorded Patient Video Specialist Expl anation ACP-Advance Directive ACP-Power of Memory Care Program Resident Documents on File Type Date Recorded Patient Video Specialist Expl anation ACP-Advance Directive ACP-Power of Memory Care Program Resident Latest Code Status on File Code Status [...] retention in legs Alexandro Muhammad MD [address] [place] [address] Maite John MD [address] [place] [address] Scheduling Instructions . Specialty Diagnoses / Procedures Referred By Contac t Referred To Contact [facility] [place] Diagnoses Lumbar adjacent segment disease with spondylolisthesis Procedures CONSULT TO [facility]) OFFICE/OUTPATIENT [facility] 60-[place] [address] [place] [id number] Referral ID Status Reason Start Date Expiration Date Visits Requested Visits Authorized [id number] Pending Review PCP Requested Referral 11/05/2022 11/05/2023 1 1 Specialty Diagnoses / Procedures Referred By Contac t Referred To Contact [facility] Diagnoses Lumbar adjacent segment disease with spondylolisthesis Procedures CONSULT TO PHYSICAL THERAPY PHYSICAL THERAPY EVALUATION HIGH COMPLEX 45 MINS Riddhi Goss, VAPOR COATER.WALL CRANE OPERATOR [address] [place] [address] [facility] [address] [place] [address] Referral ID Status Reason Start Date Expiration Date Visits Requested Visits Authorized [id number] Pending Review Auto-Generat ed Referral 3 02/07/2024 [...] has been treated in the past by casing mixer as well as his PCP. They contribute [...] 01/08/2020 2:19 PM Patient: Sukhdeep Simental MR#: [id number] : 1965 Age: 54 y.o. 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 [...] []Chair,[]cane, []bracing Are you followed by a featheredger and reducer machine? [] [x] Name: Are you followed by [...] kidney disease) stage 3, GFR 30-59 ml/min [id number] Hyperuricemia Microscopic hematuria Nephrolithiasis Secondary hyperparathyroidism Type 2 diabetes mellitus with diabetic chronic kidney disease Discharge Instructions * Attachments The following attachments cannot be sent through Care Everywhere. * Back Pain (Burmese) documented in this encounter Additional Source Comments (unrecognized sect ion and content) No Status Records FoundNo Status Records FoundNo Status Records FoundNo Status Records FoundNo Status Records FoundNo Status Records FoundNo Status Records FoundNo Status Records FoundNo Status Records FoundNo Status Records FoundNo Status Records FoundNo Status Records Found INFORMATION SOURCE (unrecogn ized section and content) DATE CREATED AUTHOR 04/18/2019 [facility] DATE CREATED AUTHOR AUTHOR'S ORGANIZ ATION 06/10/2019 [facility] DATE CREATED AUTHOR AUTHOR'S ORGANIZ ATION 07/21/2021 [facility] DATE CREATED AUTHOR AUTHOR'S ORGANIZ ATION 10/22/2021 [facility] DATE CREATED AUTHOR AUTHOR'S ORGANIZ ATION 01/23/2022 [facility] DATE CREATED AUTHOR AUTHOR'S ORGANIZ ATION 08/04/[address] [facility] DATE CREATED AUTHOR AUTHOR'S ORGANIZ ATION 12/12/2022 [facility] DATE CREATED AUTHOR AUTHOR'S ORGANIZ ATION 07/27/2023 [facility] DATE CREATED AUTHOR AUTHOR'S ORGANIZ ATION 02/16/2024 [facility] DATE CREATED AUTHOR AUTHOR'S ORGANIZ ATION 06/19/2024 [facility] DATE CREATED AUTHOR AUTHOR'S ORGANIZ ATION 06/30/2024 [facility] DATE CREATED AUTHOR AUTHOR'S ORGANIZ ATION 08/10/2024 [facility] Reason for Visit (unrecogniz ed section and content) Status Reason Specialty Diagnoses / Procedures Referred By Contact Referred To Contact Pending Review Diagnoses Hx of total knee arthroplasty, right Procedures XR BONE LENGTH STUDY Alexandro Muhammad MD [address] [place] [address] Reason Comments Pain Status Reason Specialty Diagnoses / Procedures Referred By Contact Referred To Contact Closed Cardiovascular Medicine Diagnoses Localized edema Procedures ECHOCARDIOGRAM DC ECHO HEART XTHORACIC,COMPLETE W DOPPLER Suzanne Pruett MD [address] [place] [address] Horace Buc Echocardiograph y [address] [place] [address] Reason Comments Back Pain Lower back pain s/p slip on ice Buttocks Pain Rt buttocks pain Reason Comments New Patient Lumbar spine Specialty Diagnoses / Procedures Referred By Contac t Referred To Contact Neurosurgery / NEUROSURGERY Diagnoses lumbar spine eHealth records requested Procedures REFERRAL TO [facility]SEL[facility] SURG[facility]AGE Jason Miller [address] [place] [address] [place] [address] [place] [address] Referral ID Status Reason Start Date Expiration Date V isits Requested Visits Authorized [id number] Outside PCP 11/05/2022 01/04/2023 99 99 Reason [...] POST OP NEUS/NRES Self Xi Schrader PA-C [address] [place] [phone] Referral ID Status Reason Start Date Expiration Date Visits Re quested Visits Authorized [id number] Closed 12/20/2022 02/24/2023 1 1 Reason Comments Received Outside Medical Records promedi ca Reason Comments Follow Up Specialty Diagnoses / Procedures Referred By Contac t Referred To Contact Neurosurgery / NEUROSURGERY Diagnoses Follow-up exam Follow Up Procedures OFFICE/OUTPATIENT ESTABLISHED MOD MDM 30-39 MIN EST NI PATIENT Self Xi Schrader PATed [address] [place] [address] Referral ID Status Reason Start Date Expiration Date Visits Re quested Visits Authorized [id number] Closed 02/07/2023 02/07/2023 1 1 Reason Comments PT Certification Specialty Diagnoses / Procedures Referred By Contac t Referred To Contact Neurosurgery / NEUROSURGERY Diagnoses Lumbar adjacent segment disease with spondylolisthesis discuss imaging and BWC requirements Procedures PHYS/QHP TELEPHONE EVALUATION 5-10 MIN [place]IDEO [place] [address] [place] [address] Referral ID Status Reason Start Date Expiration Date V isits Requested Visits Authorized [id number] Denied Patient Cleared - Admin/Chairm an/Director advise [...] November 07, 2023 End: November 07, 2023 Shells Inspector Relationship Specialty Start Date End Date Blayne Isabel MD [address] [place] [id number] PCP - General Family Medicine 04/11/19 Shells Inspector Relationship Specialty Start Date End Date Blayne Isabel MD [address] [place] [id number] PCP - General Family Medicine 04/11/19 Shells Inspector Relationship Specialty Start Date End Date Blayne Isabel MD [address] [place] [id number] PCP - General Family Medicine 04/11/19 Shells Inspector Relationship Specialty Start Date End Date Blayne Isabel MD [address] [place] [id number] PCP - General Family Medicine 04/11/19 Team Status: Inactive Member Role Status Dates STEPH Sarkar Attending Provider Active Team Status: Inactive Member Role Status Dates PHYSICIAN NO FAMILY Primary Care Provider Active Gianni James Nelson , DO Attending Provider Active Team Status: Inactive Member Role Status Dates Estephanie Lowry SHOTGUN SHELL ASSEMBLY MACHINE OPERATOR-C Attending Provider Active PHYSICIAN NO FAMILY Primary Care Provider Active Shells Inspector Relationship Specialty Start Date End Date Blayne Isabel MD PCP - General Family Medicine 11/06/13 Shells Inspector Relationship Specialty Start Date End Date Blayne Isabel MD PCP - General Family Medicine 11/06/13 Shells Inspector Relationship Specialty Start Date End Date Blayne Isabel MD PCP - General Family Medicine 11/06/13 Shells Inspector Relationship Specialty Start Date End Date Blayne Isabel MD PCP - General Family Medicine 11/06/13 Shells Inspector Relationship Specialty Start Date End Date Blayne Isabel MD PCP - General Family Medicine 11/06/13 Shells Inspector Relationship Specialty Start Date End Date Blayne Isabel MD PCP - General Family Medicine 11/06/13 Shells Inspector Relationship Specialty Start Date End Date Blayne Isabel MD PCP - General Family Medicine 11/06/13 Shells Inspector Relationship Specialty Start Date End Date Blayne Isabel MD PCP - General Family Medicine 11/06/13 Shells Inspector Relationship Specialty Start Date End Date Blayne Isabel MD PCP - General Family Medicine 11/06/13 Shells Inspector Relationship Specialty Start Date End Date Blayne Isabel MD PCP - General Family Medicine 11/06/13 Shells Inspector Relationship Specialty Start Date End Date Blayne Isabel MD PCP - General Family Medicine 11/06/13 Shells Inspector Relationship Specialty Start Date End Date Blayne Isabel MD PCP - General Family Medicine 11/06/13 Shells Inspector Relationship Specialty Start Date End Date Blayne Isabel MD PCP - General [facility] Medicine 10/08/18 Shells Inspector Relationship Specialty Start Date End Date Blayne Isabel MD PCP - General [facility] Medicine 10/08/18 Shells Inspector Relationship Specialty Start Date End Date Blayne Isabel MD [address] [place] [address] PCP - [facility] 10/08/18 Shells Inspector Relationship Specialty Start Date End Date Blayne Isabel MD [address] [place] [address] PCP - General [facility] Medicine 10/08/18 Shells Inspector Relationship Specialty Start Date End Date Blayne Isabel MD PCP - General [facility] Medicine 10/08/18 Shells Inspector Relationship Specialty Start Date End Date Blayne [...] Otoole RCP)1951 (Given - Provider: Yamilka Doyle PARKING METER SERVICER) 0729 (Not Given - Provider: Swapna De Anda PARKING METER SERVICER - Reason: Patient/family refused - Comment: pt [...] Milagros Reich, BRETT)1935 (Given - Provider: Milagros Recih RN) 0015 (Given - Provider: Giselle Painting [...] to back table, 1000 ml. for suction sports book board attendant.) sodium chloride flush 0.9 % injection 5-40 [...] or prosecute any alcohol or drug abuse patient.[facility] the event this information is protected by the Federal Confidentiality of Alcohol and Drug Abuse Patient Records regulations: The Federal rules restrict any use of the information to criminally investigate or prosecute any alcohol or drug abuse patient.[facility] the event this information is protected by the Federal Confidentiality of Alcohol and Drug Abuse Patient Records regulations: The Federal rules restrict any use of the information to criminally investigate or prosecute any alcohol or drug abuse patient.[facility] the event this information is protected by the Federal Confidentiality of Alcohol and Drug Abuse Patient Records regulations: The Federal rules restrict any use of the information to criminally investigate or prosecute any alcohol or drug abuse patient.[facility] the event this information is protected by the Federal Confidentiality of Alcohol and Drug Abuse Patient Records regulations: The Federal rules restrict any use of the information to criminally investigate or prosecute any alcohol or drug abuse patient.[facility] the event this information is protected by the Federal Confidentiality of Alcohol and Drug Abuse Patient Records regulations: The Federal rules restrict any use of the information to criminally investigate or prosecute any alcohol or drug abuse patient.[facility] the event this information is protected by the Federal Confidentiality of Alcohol and Drug Abuse Patient Records regulations: The Federal rules restrict any use of the information to criminally investigate or prosecute any alcohol or drug abuse patient.[facility] the event this information is protected by the Federal Confidentiality of Alcohol and Drug Abuse Patient Records regulations: The Federal rules restrict any use of the information to criminally investigate or prosecute any alcohol or drug abuse patient.[facility] the event this information is protected by the Federal Confidentiality of Alcohol and Drug Abuse Patient Records regulations: The Federal rules restrict any use of the information to criminally investigate or prosecute any alcohol or drug abuse patient.[facility]edo[facility] the event this information is protected by the Federal Confidentiality of Alcohol and Drug Abuse Patient Records regulations: The Federal rules restrict any use of the information to criminally investigate or prosecute any alcohol or drug abuse patient.[facility] the event this information is protected by the Federal Confidentiality of Alcohol and Drug Abuse Patient Records regulations: The Federal rules restrict any use of the information to criminally investigate or prosecute any alcohol or drug abuse patient.[facility] the event this information is protected by the Federal Confidentiality of Alcohol and Drug Abuse Patient Records regulations: The Federal rules restrict any use of the information to criminally investigate or prosecute any alcohol or drug abuse patient.[facility] the event this information is protected by the Federal Confidentiality of Alcohol and Drug Abuse Patient Records regulations: The Federal rules restrict any use of the information to criminally investigate or prosecute any alcohol or drug abuse patient.[facility] the event this information is protected by the Federal Confidentiality of Alcohol and Drug Abuse Patient Records regulations: The Federal rules restrict any use of the information to criminally investigate or prosecute any alcohol or drug abuse patient.[facility] the event this information is protected by the Federal Confidentiality of Alcohol and Drug Abuse Patient Records regulations: The Federal rules restrict any use of the information to criminally investigate or prosecute any alcohol or drug abuse patient.[facility]edo[facility] the event this information is protected by the Federal Confidentiality of Alcohol and Drug Abuse Patient Records regulations: The Federal rules restrict any use of the information to criminally investigate or prosecute any alcohol or drug abuse patient.[facility]edo[facility] the event this information is protected by the Federal Confidentiality of Alcohol and Drug Abuse Patient Records regulations: The Federal rules restrict any use of the information to criminally investigate or prosecute any alcohol or drug abuse patient.[facility]edo[facility] the event this information is protected by the Federal Confidentiality of Alcohol and Drug Abuse Patient Records regulations: The Federal rules restrict any use of the information to criminally investigate or prosecute any alcohol or drug abuse patient.[facility]edo[facility] the event this information is protected by the Federal Confidentiality of Alcohol and Drug Abuse Patient Records regulations: The Federal rules restrict any use of the information to criminally investigate or prosecute any alcohol or drug abuse patient.[facility] FOR RECORDS PERTAINING TO PATIENTS WHO ARE [...] BE BASED ON THE PRIMARY CLINICAL RECORDS. [employer] [facility]. provides no warranty or guarantee of the accuracy or completeness of information in this document.
--- NOTE | 2024-11-13 15:18 | ECG_ITS ---
The [facility] Test Date: 2024-11-13 Pat Name: SUKHDEEP SIMENTAL Department: Room: [facility] Gender: Male Tactical Intelligence Officer: : 1965 Requested By: BLAYNE ISABEL Order Number: [id number] Reading MD: GENESIS CAR M.D. Measurements Intervals [place] Rate: 64 P: 37 MS: 188 QRS: -10 QRSD: 90 T: 44 QT: 398 QTc: 408 Interpretive Statements 1100 Sinus rhythm 9110 normal ECG Compared to ECG 11/13/2024 13:03:13 Atrial fibrillation no longer present T-wave abnormality no longer present Electronically Signed On 11-13-2024 20:04:46 EDT by GENESIS CAR M.D.
[2024-11-13] MEDS: FUROSEMIDE 40 MG/4 ML VIAL IVP (15:25)
[2024-11-13] MEDS: MORPHINE SULFATE 2 MG/ML SYRINGE IV (15:26)
--- NOTE | 2024-11-13 15:35 | XR_ITS ---
The [address] [address] Patient Name: SUKHDEEP SIMENTAL MRN: [id number] date: 1965 Sex: M Assigned Patient Location: [place] Current Patient Location: [place] Accession/Order Number: [id number] Exam Date: 11/13/2024 15:30 Report Date: 11/13/2024 16:35 At the request of: KWABENA CARLTON MD Procedure: XR chest 1V XR chest 1V 11/13/2024 3:38 PM SIGNS AND SYMPTOMS: ^post op PROTOCOL: Frontal radiograph of the chest COMPARISON: 04/10/2024 FINDINGS: The trachea is midline. There is mild cardiomegaly. Perihilar vascular prominence is noted with interstitial prominence. The lung parenchyma is clear. The bony thorax is intact. XR/XR chest 1V IMPRESSION: There is mild cardiomegaly with perihilar vascular prominence suggesting volume overload. Impression dictated by: Felipe Morgan M.D. 11/13/2024 4:35 PM Dictation Location: [place] [address] Electronically authenticated by: [id number] Y Date: 11/13/2024 16:35
[2024-11-13 16:22] LABS: NT Pro B Type Natriuretic Pept 321.0 pg/mL (<=900.0)
[2024-11-13] MEDS: FUROSEMIDE 20 MG/2 ML VIAL IVP (17:54)
[2024-11-13] MEDS: SENNOSIDES/DOCUSATE SODIUM 1 TAB TABLET PO (20:02)
[2024-11-13] MEDS: PHENAZOPYRIDINE 100 MG TABLET PO (20:02)
[2024-11-13] MEDS: OXYBUTYNIN CHLORIDE 5 MG TAB XL PO (21:02)
[2024-11-13] MEDS: TIZANIDINE HCL 4 MG TABLET 8 MG PO (21:02)
[2024-11-13] MEDS: TAMSULOSIN HCL 0.4 MG CAPSULE PO (21:02)
[2024-11-13] MEDS: PANTOPRAZOLE SODIUM 40 MG TABLET.DR PO (21:02)
[2024-11-13] MEDS: OXYCODONE HCL 5 MG TABLET PO (23:13)
[2024-11-14] VITALS (14 sets, daily range): BP systolic 127; BP diastolic 77; PULSE 61–83; TEMP 36.7–36.8; O2SAT 93
[2024-11-14] MEDS: HYDROMORPHONE HCL 0.5 MG/0.5 ML SYRINGE IVP (03:40)
[2024-11-14] MEDS: OXYCODONE HCL 5 MG TABLET PO ×2 (07:00→12:17)
[2024-11-14 07:26] LABS: Hematocrit 41.7 % (42.0-54.0); Hemoglobin 14.4 g/dL (14.0-18.0); Mean Corpuscular HGB Conc 34.5 g/dL (29.9-35.2); Mean Corpuscular Hemoglobin 31.9 pg (25.9-34.0); Mean Corpuscular Volume 92.5 fL (80.0-94.0); Platelet Count 196 10^3/uL (150-450); Red Blood Count 4.51 10^6/uL (4.70-6.10); White Blood Count 7.9 10^3/uL (4.0-11.0)
[2024-11-14 07:53] LABS: Anion Gap 14.9; Blood Urea Nitrogen 23.0 mg/dL (7.0-18.0); Calcium 8.3 mg/dL (8.5-10.1); Carbon Dioxide 26.6 mmol/L (21.0-32.0); Chloride 104 mmol/L (98-107); Estimated GFR (African America 54 (>=60 mL/min/1.73m^2); Estimated GFR (Non-African Ame 45 (>=60 mL/min/1.73m^2); Glucose 170 mg/dL (74-106); Potassium 3.5 mmol/L (3.5-5.1); Sodium 142 mmol/L (136-145)
[2024-11-14] MEDS: PHENAZOPYRIDINE 100 MG TABLET PO (09:15)
[2024-11-14] MEDS: SENNOSIDES/DOCUSATE SODIUM 1 TAB TABLET PO (09:15)
[2024-11-14] MEDS: PANTOPRAZOLE SODIUM 40 MG TABLET.DR PO (09:15)
[2024-11-14] MEDS: OXYBUTYNIN CHLORIDE 5 MG TAB XL PO (09:15)
[2024-11-14] MEDS: TAMSULOSIN HCL 0.4 MG CAPSULE PO (09:15)
--- NOTE | 2024-11-14 11:51 | XR_ITS ---
The [place] [id number] Patient Name: SUKHDEEP SIMENTAL MRN: [id number] date: 1965 Sex: M Assigned Patient Location: [place] Current Patient Location: Accession/Order Number: [id number] Exam Date: 11/14/2024 13:45 Report Date: 11/14/2024 14:51 At the request of: KWABENA CARLTON MD Procedure: XR chest 1V PA CHEST: CLINICAL HISTORY: Follow up CHF COMPARISON: 11/13/2024 Similar mild cardiomegaly. Improved perihilar pulmonary vascular congestion and interstitial edema. No focal opacity or effusion. No pneumothorax. XR/XR chest 1V IMPRESSION: Improved CHF Impression dictated by: Facundo Kamara M.D. 11/14/2024 2:51 PM Dictation Location: [place] [address] Electronically authenticated by: [id number] Y Date: 11/14/2024 14:51
--- NOTE | 2024-11-14 12:04 | P.DS_ITS ---
DS: Providers Provider Date of admission: 11/13/24 13:43 Primary care physician: Derick Packer MD Consults: 11/12/24 19:29 Consult to Urology Routine Consulting Provider: Spenser Fernandez Reason for consultation: Obstructring stones DS: Diagnosis Discharge Diagnosis (1) Calculus of kidney: (2) CKD (chronic kidney disease): (3) Hypertension: (4) SVT (supraventricular tachycardia): Plan As listed above, below and others that are not listed DS: Summary Hospital Course Hospital Course: Mr. Mari is a 59-year-old gentleman who came to the emergency room with pain in the right flank and was found to have the following: Renal stones associated with pain and discomfort in the right flank. I have accepted to observe patient on the medical floor. N.p.o. pending urology evaluation and intervention if needed. IV fluid infusion preoperatively. IV fluid was discontinued postoperatively. IV antibiotic. Patient was seen by urology team and underwent cystoscopy, right ureteroscope, lithotripsy and stent placement on the right side Patient is feeling so much better today. Ready physical and psychologically discharged home. Patient will follow-up with executive urology team. SVT in the operating room and overnight. Patient is asymptomatic with that. Patient stated that he has had these for a while. Intermittent palpitation lasted for a minute or 2 according to him. Echocardiogram showed normal ejection fraction. No significant valvular disease Patient is on Cardura at home for hypertension. Switching to Toprol-XL 25 mg daily. If he continues to have palpitation at home I would recommend a Holter monitor and referral to see infrastructure technician to be arranged by PCP Transient pulmonary edema last evening postoperatively while patient was having significant amount of pain associated with transient hypoxemia. Chest x-ray showed interstitial edema BNP was slightly elevated. Echocardiogram does not show any systolic dysfunction or valvular disease This could be related to fluid given in the operating room in the setting of CKD This could be related to SVT in the operating room and postoperatively causing transient pulmonary edema in the setting of CKD. Patient had received 2 doses of intravenous Lasix last evening. Patient is feeling much better today. Saturation is 93% on room air Repeat chest x-ray to ensure radiological resolution. Patient is on Bumex 2 mg daily at home. Hypertension. Blood pressure is stable off irbesartan and Cardura. Patient is on Flomax. Flomax and Cardura may not be a good combination In addition, given his SVT episode he would benefit more from beta-tao. Discontinued Cardura and start him on Toprol-XL 25 mg daily. Continue irbesartan at 75 mg daily. Patient was instructed to check his blood pressure twice a day at home and if his systolic blood pressure goes above 155 to start taking irbesartan 75 twice a day CKD. Stage II-III dated back all the way to 2022. At baseline at this time. Monitor daily given his acute urological issues Discontinue home Toradol DVT prophylaxis Avoid pharmacologic intervention due to his ureteral stenting with persistent mild gross hematuria. Patient has multiple complex medical issues as listed above and others that are not listed. All appear to be stable. Patient is feeling great and requested repeatedly to be discharged home. Significant resolution of his abdominal pain. Significant resolution of his dyspnea sensation. I informed the patient about episode of SVT and interstitial edema. He said that he feels great and ready to be discharged home. At this time, I do not have any clear or strong clinical justification to extend inpatient hospitalization against her will and desire to be discharged home. Patient however will require close and frequent monitoring as well as additional work-up, investigation and therapeutic intervention that could take place from this point on post discharge. That is to prevent relapse, decompensation, rehospitalization and other medical implications. If patient continues to have episode of palpitation I will recommend Holter monitor and referral to see EP. Recommendation also to increase his Toprol if his heart rate is above 65. I instructed patient to ask her primary care doctor to obtain [facility] record entirely to address abnormalities seen on labs and imaging that I have and have not addressed during this hospitalization, follow-up on pending blood work, imaging and pathology is if available and to follow-up on needed medical care in the outpatient setting. Time Spent with Patient Time attestation: Total time spent providing and/or coordinating discharge services: Exam Narrative Exam Narrative: [pt is awake and alert. oriented to place, time and person HEENT: [place] conjunctiva and NL buccal mucosa Neck: Supple, no tenderness Endocrine: No Thyromegaly. Vascular: No JVD or carotid bruit. Lymphatic: No cervical lymphadenopathy. Chest: CTA no DTP. Heart RRR, no extra sound or murmur. Abd: Soft, Resolution of the tenderness in the right mid abdomen, right flank, no rebound and no rigidity. Increase abd girth therefore clinically I could not exclude the possibility of intra abd mass or organomegaly. LE: No cyanosis or clubbing, no varices or edema. Neuro: A A O. Nl speech, comprehension and attention. Nl and symetrical motor and tone examination through out. []] Constitutional Vital Signs, click to edit/add: Last Vital Signs Temp 98.2 F 11/14/24 08:00 Pulse 64 11/14/24 11:51 Resp 14 11/14/24 05:00 BP 127/77 11/14/24 03:46 Pulse Ox 93 L 11/14/24 11:39 O2 Del Method Room Air 11/14/24 11:39 O2 Flow Rate 3 11/13/24 14:05 DS: Data Data Completed and Pending Labs on day of discharge: Labs from last 24 hours 11/14/24 11/13/24 06:45 15:54 WBC 7.9 RBC 4.51 L Hgb 14.4 Hct 41.7 L MCV 92.5 MCH 31.9 MCHC 34.5 RDW 12.0 Plt Count 196 MPV 9.4 L Sodium 142 Potassium 3.5 Chloride 104 Carbon Dioxide 26.6 Anion Gap 14.9 BUN 23.0 H Creatinine 1.58 H Est GFR ( Amer) 54 L Est GFR (Non-Af Amer) 45 L BUN/Creatinine Ratio 14.6 Glucose 170 H Calcium 8.3 L NT-Pro-B Natriuret Pep 321.0 Discharge Plan Discharge Disposition: Home, Self-Care Condition: Good Discharge Medications: New phenazopyridine 100 mg Tablet 100 mg PO BID Qty: 10 0RF oxybutynin chloride 5 mg Tablet Extended Release 24hr 5 mg PO BID Qty: 10 0RF metoprolol succinate 25 mg Tablet Extended Release 24 Hr 25 mg PO QD Qty: 30 1RF irbesartan 75 mg tablet 75 mg PO DAILY Qty: 30 1RF cefuroxime axetil 250 mg tablet 250 mg PO BID 7 Days Qty: 14 0RF Continued bumetanide 1 mg tablet 1 mg PO DAILY doxepin 10 mg capsule 10 mg PO QPM omeprazole 20 mg capsule,delayed release(DR/EC) 20 mg PO BID oxycodone-acetaminophen 10-325 mg tablet 1 tab PO Q6H PRN (Reason: pain) tamsulosin 0.4 mg capsule 0.4 mg PO DAILY tizanidine 4 mg tablet 8 mg PO QPM trazodone 150 mg tablet 150 mg PO QPM simvastatin 10 mg tablet 10 mg PO DAILY testosterone cypionate 200 mg/mL oil 150 mg IM Q14D Discontinued ketorolac 10 mg tablet 10 mg PO Q6H PRN (Reason: pain) 4 Days Qty: 14 0RF doxazosin 4 mg tablet 4 mg PO DAILY irbesartan 300 mg tablet 150 mg PO DAILY Print Language: Angolan Activity Restrictions/Additional Instructions: I may not have addressed or treated all of your medical illnesses or the abnormal blood work or imaging studies during this hospitalization. Please ask your primary care provider to obtain [facility] records entirely to follow up on all of the abnormal physical, laboratory, and imaging findings that I have not addressed. Please return back to the emergency room or seek medical attention if your symptoms worsen or return. Please check your blood pressure twice a day using basic blood pressure machine from [employer] or [employer].. Keep a blood pressure log and provide your primary care doctor. If your systolic blood pressure (the upper number ) is reaching above 155, then take irbesartan 75 mg twice a day Recommend blood test called BMP at your primary care doctor next week to monitor your kidney function Discharging you from [facility] does not mean that your medical care ends here and now. You may still need additional monitoring, work up, investigation, and treatment plan to be handled from this point on by out patient providers including your primary care provider and specialists. For any medication question, please contact your retail pharmacist or your primary care provider. Thank you. Forms: Portal Instructions
[2024-11-14] MEDS: METOPROLOL SUCCINATE 25 MG TAB.ER.24H PO (12:17)
--- NOTE | 2024-11-14 15:48 | ECG_ITS ---
[facility] Test Date: 2024-11-14 Pat Name: SUKHDEEP SIMENTAL Department: Room: [facility] Gender: Male Principal Librarian: : 1965 Requested By: BLAYNE ISABEL Order Number: [id number] Reading MD: GENESIS CAR M.D. Measurements Intervals [place] Rate: 66 P: 51 OR: 204 QRS: 6 QRSD: 96 T: 90 QT: 390 QTc: 403 Interpretive Statements 1100 Sinus rhythm 4068 Nonspecific Twave abnormality 9130 borderline ECG Compared to ECG 11/13/2024 15:37:47 No significant changes Electronically Signed On 11-15-2024 13:51:05 EDT by GENESIS CAR M.D.
--- NOTE | 2024-11-16 16:20 | CM.DCFOLLOWU ---
Person spoke with:patient How are you feeling? doing well, just some pain How is your pain? not terrible, but felt like he left too early Did you understand your discharge instructions? yes Do you have any questions about your discharge instructions? no Were you given any prescriptions at discharge?yes Were you able to get your prescriptions filled? yes Do you understand how to take your medications as ordered?yes Do you have any questions about your follow up appointment and do you plan to keep your follow up appointment? no questions, has follow up tomorrow with PCP and with Urologist Is there anything else that you would like to discuss?no Questions/Comments/Concerns/Other:none
--- OUTSIDE RECORDS SUMMARY | 2024-11-17 04:30 | XMS_ITS ---
Author Organization [facility] [place] Address [address] [place] [address] Care Team Providers Care Meat Service Team Member Name Role Phone ABELARDO ISABEL MD Primary Care Provider Abelardo Isabel Unavailable [phone] Allergies No Known Allergies REASON FOR VISIT Discuss Meds, Kidney stone operation Saturday- go over new meds- on ATB (cefuroxime) Medications Medication SIG (Take, Route, Frequency, Duration) Notes Start Date End Date Status Tamsulosin HCl 0.4 mg TAKE 1 CAPSULE BY MOUTH DAILY; Duration: 30 Active tiZANidine HCl 4 mg TAKE 2 TABLETS BY [facility] AT BEDTIME; Duration: 30 Active Testosterone Cypionate 200 mg/mL INJECT 3/4 mls INTRAMUSCULARLY EVERY 2 (TWO) weeks *MUST LAST 30 DAYS*; Duration: 30 10/05/2024 Active traZODone HCl 150 mg TAKE 1 TABLET BY [facility] AT BEDTIME; Duration: 30 Active Toprol XL 25 MG 1 tablet Orally Once a day 025 Active predniSONE 20 MG 3 tablets Orally Onc e a day; Duration: 5 days 09/21/2024 Active Reglan 10 MG 1 tablet before meal s Orally Twice a day; Duration: 90 days PRN Active Irbesartan 75 MG 1 tablet Orally Once a day; Duration: 60 days Active oxyCODONE-Acetaminophen 10-325 MG TAKE 1 TABLET BY MOUTH EVERY 6 HOURS NEEDED *MUST LAST 30 DAYS*; Duration: 30 11/12/2024 Active oxyBUTYnin Chloride 5 MG 1 tablet Orally twice a day 11/17/2024 Active Crestor 5 MG 1 tablet Orally Once a day; Duration: 30 day(s) 11/17/2024 Active Bumetanide 1 mg TAKE 1 TABLET BY JUAN CARLOS TH ONCE DAILY; Duration: 30 Active Social History Tobacco Use: Social History Observation Description Date Details (start date - stop date) Never Smoker NA - NA Tobacco Use/Smoking Question Answer Notes Patient is a nonsmoker Problems Problem Type SNOMED Code ICD Code Onset Dates Problem Status W/U Status Risk Notes Problem Hypercholesterolemia (89267555) Hypercholesterolemia (E78.00) Active confirmed Vital Signs Weight 281.6 lbs 11/17/2024 Height 69 in 11/17/2024 Blood pressure systolic 130 mm Hg 11/18/19 25 Blood pressure diastolic 82 mm Hg 025 BMI 41.58 kg/m2 11/17/2024 Encounters Encounter Location Date Provider Diagnosis [facility] Medicine [address] [place] [address] 11/17/2024 Abelardo Hoy Hypertension I10 ; Hypercholesterolemia E78.00 and Well adult Z00.00 Assessments Encounter Date Diagnosis (ICD Code) Assessment Notes Treatment Notes Treatment Clinical Notes Section Notes 11/17/2024 Hypertension (ICD-10 - I10) 11/17/2024 Hypercholesterolemia (ICD-10 - E78.00) 11/17/2024 Well adult (ICD-10 - Z00.00) Plan Of Treatment Medication Medication Name Sig Start Date Stop Date Notes Crestor 5 MG 1 tablet Orally Once a day; Duration: 30 day(s) 11/17/2024 Pending Test Test Name Order Date HEMOGLOBIN A1C (GLYCO) 11/17/2024 INSULIN, TOTAL 11/17/2024 LIPID PANEL (CHOL/TRIG/HDL/LDL) 11/18/19 25 THYROID PANEL (T4/TSH/FREE T3) PSA, SCREENING 11/17/2024 CMP (COMP MET TORREZ) w/eGFR CKD-EPI 2024 CBC WITH DIFF 11/17/2024 Progress Notes * Aldo SIMENTALDOB:1965 ([age] yo M)Acc No.[id number]:11/17/2024 Progress Note Patient: Aldo DIXON Provider: Marisabel Isabel ([facility])MD :1965 A ge:59 Y S ex:Male Date:11/17/2024 Address:[facility] [address], [place], [id number] Pcp:ABELARDO ISABEL MD Check In:08:25 AM ESTCheck O ut:08:59 AM EST Subjective: * Chief Complaints: * D iscuss MedsKidney stone operation Saturday- go over new meds- on ATB (cefuroxime) * ROS: E ENT: hearing changes d [...] M25.561 Knee pain, right Modified On:03/16/2024U Status:confirmed R60.9 Edema Modified On:07/15/2024U Status:confirmed I10 Hypertension Modified On:07/15/2024U Status:confirmed E78.00 Hypercholesterolemia Modified On:11/17/2024U Status:confirmed * Medical History: * Surgical History: g astric sleeve 05/16ankle surgery 05/2014knee surgery 04/19Lumbar and sacral fusion 12/07/22Kidney stone 10/2024 * Hospitalization/Major Diagno stic Procedure: s ee above * Family History: F ather: 67 yrs, diagnosed with Other malignant neoplasm of unspecified site. M other: alive. B rother(s): alive. D karolineer(s): alive. 2 brother(s) - healthy. 1 daughter(s) - healthy. . * Social History: T obacco Use: T obacco Use/Smoking P atient is a n onsmoker * Medications: T akingBumetanide 1 mg Tablet TAKE 1 TABLET BY MOUTH ONCE DAILY Irbesartan 75 MG Tablet 1 tablet Orally Once a day oxyBUTYnin Chloride 5 MG Tablet 1 tablet Orally twice a day oxyCODONE-Acetaminophen 10-325 MG Tablet TAKE 1 TABLET BY MOUTH EVERY 6 HOURS NEEDED *MUST LAST 30 DAYS* predniSONE 20 MG Tablet 3 tablets Orally Once a day Reglan(Metoclopramide HCl) 10 MG Tablet 1 tablet before meals Orally Twice a day , Notes to Pharmacist: PRNTamsulosin HCl 0.4 mg Capsule TAKE 1 CAPSULE BY MOUTH DAILY Testosterone Cypionate 200 mg/mL Solution INJECT 3/4 mls INTRAMUSCULARLY EVERY 2 (TWO) weeks *MUST LAST 30 DAYS* tiZANidine HCl 4 mg Tablet TAKE 2 TABLETS BY MOUTH AT BEDTIME Toprol XL(Metoprolol Succinate ER) 25 MG Tablet Extended Release 24 Hour 1 tablet Orally Once a day traZODone HCl 150 mg Tablet TAKE 1 TABLET BY MOUTH AT BEDTIME Taking Bumetanide 1 mg Tablet TAKE 1 TABLET BY MOUTH ONCE DAILY Taking Irbesartan 75 MG Tablet 1 tablet Orally Once a day Taking oxyBUTYnin Chloride 5 MG Tablet 1 tablet Orally twice a day Taking oxyCODONE-Acetaminophen 10-325 MG Tablet TAKE 1 TABLET BY MOUTH EVERY 6 HOURS NEEDED *MUST LAST 30 DAYS* Taking predniSONE 20 MG Tablet 3 tablets Orally Once a day Taking Reglan(Metoclopramide HCl) 10 MG Tablet 1 tablet before meals Orally Twice a day , Notes to Pharmacist: PRNTaking Tamsulosin HCl 0.4 mg Capsule TAKE 1 CAPSULE BY MOUTH DAILY Taking Testosterone Cypionate 200 mg/mL Solution INJECT 3/4 mls INTRAMUSCULARLY EVERY 2 (TWO) weeks *MUST LAST 30 DAYS* Taking tiZANidine HCl 4 mg Tablet TAKE 2 TABLETS BY MOUTH AT BEDTIME Taking Toprol XL(Metoprolol Succinate ER) 25 MG Tablet Extended Release 24 Hour 1 tablet Orally Once a day Taking traZODone HCl 150 mg Tablet TAKE 1 TABLET BY MOUTH AT BEDTIME DiscontinuedAdipex-P(Phentermine HCl) 37.5 MG Tablet 1 tablet before breakfast Orally Once a day BD Luer-Meli Syringe(Syringe/Needle (Disp)) 22G X 1- 1/2 3 ML Miscellaneous Use 1 (ONE) syringe as directed once a week for use with testosterone Doxazosin Mesylate 4 mg Tablet TAKE 1 TABLET BY MOUTH ONCE DAILY Doxepin HCl 10 mg Capsule TAKE 1 TO 2 CAPSULES BY MOUTH EVERY 6 HOURS NEEDED FOR 30 DAYS Ketoconazole 2 % Cream 1 application Externally bid Omeprazole 20 mg Capsule Delayed Release TAKE 1 CAPSULE BY MOUTH TWICE DAILY 30 MINUTES BEFORE morning meal Simvastatin 10 mg Tablet TAKE 1 TABLET BY MOUTH ONCE DAILY Triamcinolone Acetonide 0.1 % Cream 1 application Externally Twice a day Medication List reviewed and reconciled with the patientDiscontinued Adipex-P(Phentermine HCl) 37.5 MG Tablet 1 tablet before breakfast Orally Once a day Discontinued BD Luer-Meli Syringe(Syringe/Needle (Disp)) 22G X 1-1/2 3 ML Miscellaneous Use 1 (ONE) syringe as directed once a week for use with testosterone Discontinued Doxazosin Mesylate 4 mg Tablet TAKE 1 TABLET BY MOUTH ONCE DAILY Discontinued Doxepin HCl 10 mg Capsule TAKE 1 TO 2 CAPSULES BY MOUTH EVERY 6 HOURS NEEDED FOR 30 DAYS Discontinued Ketoconazole 2 % Cream 1 application Externally bid Discontinued Omeprazole 20 mg Capsule Delayed Release TAKE 1 CAPSULE BY MOUTH TWICE DAILY 30 MINUTES BEFORE morning meal Discontinued Simvastatin 10 mg Tablet TAKE 1 TABLET BY MOUTH ONCE DAILY Discontinued Triamcinolone Acetonide 0.1 % Cream 1 application Externally Twice a day Medication List reviewed and reconciled with the patient * Allergies: N .K.D.A.no[Allergies Verified] Objective: * Vitals: W t:281.6lbs, Ht: 69 in, BP:130/82mm Hg, BMI:41.58Index. * Examination: P hysical Exam: GENERAL: w [...] mood and affect. Assessment: * Assessment: 1. H ypertension - I10 (Primary) 2 . H ypercholesterolemia - E78.00 ? 3 . [facility] - Z00.00 Plan: * Treatment: 2. [facility] L AB: HEMOGLOBIN A1C (GLYCO) L AB: INSULIN, TOTAL L AB: LIPID PANEL (CHOL/TRIG/HDL/LDL) L AB: THYROID PANEL (T4/TSH/FREE T3) L AB: PSA, SCREENING L AB: CMP (COMP MET TORREZ) w/eGFR CKD-EPI L AB: CBC WITH DIFF * Procedure Codes: * Preventive Medicine: Screenings/Counseling: B TX ACTION PLAN Above Normal BMI Follow-up D ietary management education, guidance, and counseling * * Sign off status: Completed Visit Status: C HK (Check Out) true * Provider: Marisabel Isabel ([facility])MD Date: 0 11/17/2024 Generated for Printi ng/Faxing/eTransmitting on: 0 11/20/2024 12:41 PM EDT History and Physical Notes * Examination [...]
--- OUTSIDE RECORDS SUMMARY | 2024-11-17 04:41 | XMS_ITS ---
Author Organization [facility] in [place] Address [address] [place] [address] Care Team Providers Care Custom Garment Designer Name Role Phone ABELARDO PACKER MD Primary Care Provider Abelardo Packer Unavailable [phone] REASON FOR VISIT no urine culture done Encounters Encounter Location Date Provider Diagnosis [facility] [address] [place] [address] 11/17/2024 Abelardo Packer UTI (urinary tract infection) N39.0 Assessments Encounter Date Diagnosis (ICD Code) Assessment Notes Treatment Notes Treatment Clinical Notes Section Notes 11/17/2024 UTI (urinary tract infection) (ICD-10 - N39.0) Plan Of Treatment Pending Test Test Name Order Date UA (URINALYSIS, COMPLETE) 11/17/2024 CULTURE URINE 11/17/2024 Progress Notes * Aldo SIMENTALDOB:1965 ([age] yo M)Acc No.[id number]:11/17/2024 Patient: Aldo DIXON :1965 A ge:59 Y S ex:Male Address:[address] [place], [address] Subjective: * Chief Complaints: * N o urine culture done * Medical History: * Surgical History: * Hospitalization/Major Diagno stic Procedure: * Medications: Objective: * Vitals: * Physical Examination: Assessment: * Assessment: 1. U TI (urinary tract infection) - N39.0 (Primary) Plan: * Treatment: * Procedure Codes: * true * Date: Generated for Aruna cota/Jamal/Dottie on: 0 11/20/2024 12:40 PM EDT
--- OUTSIDE RECORDS SUMMARY | 2024-11-20 12:40 | XMS_ITS | Encounter Summary ---
Author Organization [facility] tem Address [id number] [address] [place] [address] Care Team Providers Care Cardiopulmonary Technologist Name Role Phone Derick Packer MD Primary Care Provider [phone] Encounter Details Date Type Department Care Team (Late st Contact Info) Description 02/20/2022 Telephone [facility] [address] [place] [id number] Cherelle Oleary RN Social History Tobacco Use [...] on filedocumented in this encounter Care Teams Cardiopulmonary Technologist Relationship Specialty Start Date End Date Derick Packer MD PCP - General Family Medicine 10/08/18 documented as of this encounter
--- OUTSIDE RECORDS SUMMARY | 2024-11-20 12:41 | XMS_ITS | Clinical Summary ---
Author Organization [employer] tem Address [id number] [address] [place] [address] Care Team Providers Care College Dean Name Role Phone Derick Packer MD Primary Care Provider [phone] Allergies Active Allergy Reactions Criticality Noted Date [...] (08/17/2021): Added automatically from request for surgery [id number] Degeneration of lumbosacral intervertebral disc 03/28/2021 Overview (03/28/2021): Added automatically from request for surgery [id number] Other specified inflammatory spondylopathies, candi mbar region 03/28/2021 Overview (03/28/2021): Added automatically from request for surgery [id number] Family History Medical History Relation Name Comments [...] 02/13/2024 Medical Devices Not on file Insurance [facility] [employer] Care Teams College Dean Relationship Specialty Start Date End Date Derick Packer MD PCP - General Family Medicine 10/08/18
--- OUTSIDE RECORDS SUMMARY | 2024-11-20 12:41 | XMS_ITS | Clinical Summary ---
Author Organization [employer] Address [address] [place] [address] Care Team Providers Care Verification Clerk Name Role Phone Derick Packer MD Primary Care Provider [phone] Allergies Active Allergy Reactions Criticality Noted Date [...] complete this topic Insurance [employer] Care Teams Verification Clerk Relationship Specialty Start Date End Date Derick Packer MD PCP - General Family Medicine 01/08/20
--- OUTSIDE RECORDS SUMMARY | 2024-11-20 12:41 | XMS_ITS | Encounter Summary ---
Author Organization [facility] tem Address [id number] [address] [place] [address] Care Team Providers Care Industrial Machine Assembler Name Role Phone Derick Packer MD Primary Care Provider [phone] Encounter Details Date Type Department Care Team (Late st Contact Info) Description 04/03/2022 Telephone [facility] [address] [place] [id number] Cherelle Oleary RN Social History Tobacco Use [...] call office in April 2022 to have [facility] forms completed as needed. documented in this encounter Plan of Treatment Not on file documented as of this encounter Visit Diagnoses Not on filedocumented in this encounter Care Teams Industrial Machine Assembler Relationship Specialty Start Date End Date Derick Packer MD PCP - General Family Medicine 10/08/18 documented as of this encounter
--- OUTSIDE RECORDS SUMMARY | 2024-11-20 12:41 | XMS_ITS | Encounter Summary ---
Author Organization [facility] tem Address [id number] [address] [place] [address] Care Team Providers Care Human Resources Operations Specialist Name Role Phone Derick Packer MD Primary Care Provider [phone] Encounter Details Date Type Department Care Team (Late st Contact Info) Description 05/09/2022 Telephone [facility] [address] [place] [id number] Cherelle Oleary RN Social History Tobacco Use [...] on filedocumented in this encounter Care Teams Human Resources Operations Specialist Relationship Specialty Start Date End Date Derick Packer MD PCP - General Family Medicine 10/08/18 documented as of this encounter
--- OUTSIDE RECORDS SUMMARY | 2024-11-20 12:41 | XMS_ITS | Clinical Summary ---
Author Organization [facility] Address [address] [place] [id number] Care Team Providers Care Alumni Coordinator Name Role Phone Derick Packer MD Primary Care Provider [phone] Allergies No known active allergies Medications doxazosin [...] is lower risk 9 11/05/2022 Data from: [email or web address] Last address used for calculation Paula [...] 01/24/2027 01/24/2022 Medical Devices Implanted Type Area Drawing Supervisor Device Identifier Shelf Expiration Date Model / Serial / Lot Vitoss Ba2x Bioactive Bone Graft Substitute 5.0cub Cm Implanted:Qty: 1 on 12/07/2022 at [facility] Implant N/A: Spine - Lumbar [place] 08/23/2023 [id number] / / [id number] Cage Tritanium 6d [id number] Spinal Sterile Latex Free Lumbar Posterior - [id number] Implanted:Qty: 1 on 12/07/2022 at [facility] Implant N/A: Spine - Lumbar [place] [employer] 08/11/2025 [id number] / / [id number] Cage Tritanium 6d [id number] Spinal Sterile Latex Free Lumbar Posterior - [id number] Implanted:Qty: 1 on 12/07/2022 at [facility] Implant N/A: Spine - Lumbar [place] [employer] 12/20/2026 [id number] / / [id number] Screw Darby 3 Titanium Set Merlyn Spine - [id number] Implanted:Qty: 10 on 12/07/2022 at [facility] Implant N/A: Spine - Lumbar [place] [employer] [id number] / / Screw Darby 3 Gloria 6.5mm 45mm Bone Polyaxial Nonsterile Spine - [id number] Implanted:Qty: 2 on 12/07/2022 at [facility] Screw N/A: Spine - Lumbar [place] [employer] [id number] / / Screw Darby 3 Gloria 6.5mm 50mm Bone Polyaxial Nonsterile Spine - [id number] Implanted:Qty: 2 on 12/07/2022 at [facility] Screw N/A: Spine - Lumbar [place] SPINE [id number] / / Procedures Procedure Name Priority Date/Time Associated Diagnosis Comments BASIC METABOLIC PANEL Routine 12/11/2022 4:50 AM EDT HEMOGLOBIN A1C Routine 11/21/2022 11:39 AM EDT Pre-op examination from Last 3 Months or Most Recently Relevant to Health Maintenance Results * (ABNORMAL) BASIC METABOLIC PNL (12/11/2022 4:50 AM EDT) [facility] Glucose 98 74 - 99 mg/dL 12/11/2022 6:30 AM EDT [facility] Comment: The [place] Diabetes Association (ADA) provides guidance for cutoff [...] Standards of Medical Care in Diabetes 2016, [place] Diabetes Association. Diabetes Care. 2016.39(Suppl 1). BUN 13 9 - 24 mg/dL 12/11/2022 6:30 AM EDT [facility] Creatinine 1.17 0.73 - 1.22 mg/dL 12/11/2022 6:30 AM EDT [facility] Sodium 143 136 - 144 mmol/L 12/11/2022 6:30 AM EDT [facility] Potassium 4.8 3.7 - 5.1 mmol/L 12/11/2022 6:30 AM EDT [facility] Chloride 106(H) 97 - 105 mmol/L 12/11/2022 6:30 AM EDT [facility] CO2 29 22 - 30 mmol/L 12/11/2022 6:30 AM EDT [facility] Anion Gap 8(L) 9 - 18 mmol/L 12/11/2022 6:30 AM EDT [facility] Calcium, Total 8.7 8.5 - 10.2 mg/dL 12/11/2022 6:30 AM EDT [facility] Estimated Glomerular Filtration Rate 72 >=60 mL/min/1. 73m 12/11/2022 6:30 AM EDT [facility] Comment:Estimated Glomerular Filtration Rate (eGFR) is [...] 12/11/2022 5:59 AM EDT us Alyssa Archual [employer] [employer] Final Res ult [facility] [address] [place] [address], * HGB A1C (11/21/2022 11:39 AM EDT) Hemoglobin A1C 5.5 4.3 - 5.6 % 11/22/2022 6:07 AM EDT [facility] Comment:[place] Diabetes As sociation guidelines indicate that patients with HgbA1c in the range 5.7-6.4% are at increased risk for development of diabetes, and intervention by lifestyle modification may be beneficial. HgbA1c greater or equal to 6.5% is considered diagnostic of diabetes. Estimated Average Glucose 111 mg/dL 11/22/2022 6:07 AM EDT [facility] Comment:eAG: (Estimated aver age glucose) is a calculated value from HgbA1c and is termite control service representative of the average blood glucose level in the last 2-3 month period. Blood BLOOD SPECIMEN / Unknown Venipuncture / Unknown 11/21/2022 11:39 AM EDT 11/21/2022 11:39 AM EDT us Brenton Anton [employer] Final Re sult [facility] [address] [place] [address], [place] from Last 3 Months or Most Recently Relevant to Health Maintenance Insurance [facility] [address] [id number] Care Teams Alumni Coordinator Relationship Specialty Start Date End Date Derick Packer MD PCP - General Family Medicine 11/06/13
--- OUTSIDE RECORDS SUMMARY | 2024-11-20 12:41 | XMS_ITS | Clinical Summary ---
Author Organization [facility] Address [address] [place] [address] Care Team Providers Care Industrial Rehabilitation Consultant Name Role Phone Unavailable Primary Care Provider [...]
--- OUTSIDE RECORDS SUMMARY | 2024-11-20 12:42 | XMS_ITS | Clinical Summary ---
Author Organization [facility] Address [address], [address] [place] [address] Care Team Providers Care Obstetrics Gyn Physician Name Role Phone Derick Packer MD Primary Care Provider [phone] Allergies Active Allergy Reactions Criticality Noted Date [...] on file Medical Devices Implanted Type Area Clinical Pharmacy Technician Device Identifier Shelf Expiration Date Model / [...] 4:29 PM 05/26/2021 4:33 PM Care Teams Obstetrics Gyn Physician Relationship Specialty Start Date End Date Derick Packer MD [address] [place] [address] PCP - General Family Medicine 04/11/19
--- OUTSIDE RECORDS SUMMARY | 2024-11-20 12:42 | XMS_ITS | Patient Health Record ---
Author Organization [facility] Address [address] [place] [place] [address] Care Team Providers Care Dietitian Consultant Name Role Phone Rakesh Quiñones Unavailable [phone] UNASSIGNED, UNASSIGNED Unavailable Unavailab le Allergies Allergen [...] Problem Status W/U Status Risk Notes Problem [id number] Spinal stenosis, lumbosacral region (M48.07) Active confirmed Problem Neurogenic claudication (816028816) Spinal stenosis of lumbar region with neurogenic claudication (M48.062) Active confirmed Plan Of Treatment No Information Insurance Providers Payer Name Payer Address Payer Phone Subscriber Number Group Number Insured Name Patient Relationship to Insured Coverage Start Date Coverage End Date [facility]Health Mg[facility]) [address] [place] [id number] SUKHDEEP SIMENTAL Self - patient is the [...] 06/2019 ANKLE SPURS 2018 BILATERAL KNEE ARTHOPLASTY [phone] Hospitalization History Reason Date(Month/Year) L-SPINE BULGING DISC 2019
--- OUTSIDE RECORDS SUMMARY | 2024-11-20 12:42 | XMS_ITS | Patient Health Record ---
Author Organization [facility] in [place] Address [address] [place] [address] Care Team Providers Care Executive Chef Assistant Name Role Phone ABELARDO PACKER MD Primary Care Provider [phone] Abelardo Packer Unavailable [phone] Estephanie Nevarez Unavailable [phone] Allergies No Known Allergies Results Component Value Reference Range Notes CBC AUTO DIFF Reviewed date:03/17/2024 01:14:22 PM Interpretation: Performing Lab: Notes/Report: [facility] , White Blood Count 5.9 4.0-11.0 10 [...] 10 3/uL Performing Lab: see note - [facility] LB CRP Reviewed date:03/17/2024 01:14:22 PM Interpretation: Performing Lab: Notes/Report: [facility] , C Reactive Protein <0.50 <=0.50 mg/dL Performing Lab: see note [facility] PROF 14(COMP METB) Reviewed date:03/17/2024 01:14:22 PM Interpretation: Performing Lab: Notes/Report: [facility] , Sodium 143 136-145 mmol/L Potassium 4.6 [...] Ratio 1.0 Performing Lab: see note - [facility] LB XR KNEE RT 3V Reviewed date:03/17/2024 01:14:22 PM Interpretation: Performing Lab: Notes/Report: Source Facility: [facility] [place] [address] XRay Report Signed Patient: SUKHDEEP MARI MR#: [id number] : 1965 Acct:[id number] Age/Sex: 58 / M ADM Date: 03/17/24 Loc: LAB Attending Dr: Blayne Packer M.D. Ordering Physician: Blayne Packer M.D. Date of Service: 03/17/24 Procedure(s): XR knee RT 3V Accession Number(s): [id number] cc: Blayne Packer M.D. [place] [address] Patient Name: SUKHDEEP MARI MRN: [id number] date: 1965 Sex: M Assigned Patient Location: LAB Current Patient Location: LAB Accession/Order Number: [id number] Exam Date: 03/17/2024 07:03 Report Date: 03/17/2024 [...] Signed By: 03/17/24 1251 DD/ 1249 TD/TT: Sand Caster: CT knee RT wo con Reviewed date:04/08/2024 09:52:06 PM Interpretation: Performing Lab: Notes/Report: Source Facility: [facility] [place] [address] CT Scan Report Signed Patient: SUKHDEEP MARI#: [id number] : 1965 Acct:[id number] Age/Sex: 58 / M ADM Date: 04/07/24 Loc: CT Attending Dr: Blayne Packer M.D. Ordering Physician: Blayne Packer M.D. Date of Service: 04/07/24 Procedure(s): CT knee RT wo con Accession Number(s): [id number] cc: Blayne Packer M.D. [place] [address] Patient Name: SUKHDEEP MARI MRN: [id number] date: 1965 Sex: M Assigned Patient Location: CT Current Patient Location: Accession/Order Number: [id number] Exam Date: 04/07/2024 10:15 Report Date: 04/08/2024 [...] M.D. Signed By: 04/08/24 0537 DD/ TD/TT: Sand Caster: Testosterone Reviewed date:12/04/2023 08:36:27 PM Interpretation: Performing Lab: Notes/Report: [facility] , Testosterone 556 264-916 ng/dL Adult male reference interval is based on a population of healthy nonobese males (BMI <30) between 19 and 39 years old. patrick Gatica.al. JCEM 2017,102;7890-6543. PMID: 40939932. Performed at: - [facility] [address] [id number] Nitrate Operator: Logan Martinez PhD, Phone: [phone] Performing Lab: see note - [facility] LB XR abdomen 1V Reviewed date:07/16/2024 08:12:11 PM Interpretation: Performing Lab: Notes/Report: Source Facility: [place] [address] [place] [address] XRay Report Signed Patient: SUKHDEEP MARI MR#: [id number] : 1965 Acct:[id number] Age/Sex: 58 / M ADM Date: 07/16/24 Loc: US Attending Dr: Spenser Ag M.D. Ordering Physician: Spenser Ag M.D. Date of Service: 07/16/24 Procedure(s): XR abdomen 1V Accession Number(s): [id number] cc: Blayne Packer M.D.; Spenser Ag M.D. [place] [address] Patient Name: SUKHDEEP MARI MRN: [id number] date: 1965 Sex: M Assigned Patient Location: US Current Patient Location: US Accession/Order Number: [id number] Exam Date: 07/16/2024 10:07 Report Date: 07/16/2024 10:13 At the request of: SPENSER AG MD Procedure: XR abdomen 1V SINGLE VIEW [...] Sadler M.D. 07/16/2024 10:13 AM Dictation Location: [place] [address] Electronically authenticated by: [id number] Y Date: 07/16/2024 10:13 Dictated By: Erlinda Sadler M.D. Signed By: 07/16/24 1015 DD/ 1013 TD/TT: Sand Caster: US renal BI Reviewed date:07/16/2024 08:12:11 PM Interpretation: Performing Lab: Notes/Report: Source Facility: [place] [address] Ultrasound Report Signed Patient: SUKHDEEP MARI MR#: [id number] : 1965 Acct:[id number] Age/Sex: 58 / M ADM Date: 07/16/24 Loc: US Attending Dr: Spenser Ag M.D. Ordering Physician: Spenser Ag M.D. Date of Service: 07/16/24 Procedure(s): US renal BI Accession Number(s): [id number] cc: Blayne Packer M.D.; Spenser Ag M.D. [place] [address] Patient Name: SUKHDEEP MARI MRN: [id number] date: 1965 Sex: M Assigned Patient Location: US Current Patient Location: US Accession/Order Number: [id number] Exam Date: 07/16/2024 10:03 Report Date: 07/16/2024 10:07 At the request of: SPENSER AG MD Procedure: US renal BI BILATERAL RENAL [...] Sadler M.D. 07/16/2024 10:07 AM Dictation Location: [place] [address] Electronically authenticated by: [id number] Y Date: 07/16/2024 10:07 Dictated By: Erlinda Sadler M.D. Signed By: 07/16/24 1009 DD/ 1007 TD/TT: Sand Caster: MAGNESIUM Reviewed date:11/10/2024 05:18:02 PM Interpretation: Performing Lab: Notes/Report: [facility] , Magnesium 1.8 1.8-2.4 mg/dL Performing Lab: see note ML - [facility] LB RENAL FUNCTION PANEL Reviewed date:11/10/2024 05:18:02 PM Interpretation: Performing Lab: Notes/Report: [facility] , Sodium 143 136-145 mmol/L Potassium 3.8 [...] g/dL Performing Lab: see note ML - [facility] LB UA RANDOM W or MICROSCOPIC Reviewed date:11/10/2024 05:18:02 PM Interpretation: Performing Lab: Notes/Report: [facility] , Color Urine LT. YELLOW YELLOW Clarity Urine CLEAR CLEAR Specific [place] Urine 1.015 1.005-1.025 pH Urine 5.5 5.0-9.0 [...] #/LPF Performing Lab: see note ML - [facility] LB URIC ACID SERUM Reviewed date:11/10/2024 05:18:02 PM Interpretation: Performing Lab: Notes/Report: [facility] , Uric Acid 7.5 3.5-7.2 mg/dL Performing Lab: see note ML - [facility] URINE T PROTEIN CREAT RATIO Reviewed date:11/10/2024 05:18:02 PM Interpretation: Performing Lab: Notes/Report: [facility] , Total Protein Urine Random 7.8 <=11.9 mg/dL Creatinine Urine Random 44.26 20.00-300.00 mg/d L Protein Creatinine Ratio Urine 0.18 Performing Lab: see note ML - [facility] LB VITAMIN D 25 [place] Reviewed date:11/10/2024 05:18:02 PM Interpretation: Performing Lab: Notes/Report: [facility] , Vitamin D 44.6 <20 ng/mL Vit D deficient 20-<30 ng/mL Vit D insufficient 30-100 ng/mL Vit D sufficient >100 ng/mL Potential Toxicity Performing Lab: see note ML - [facility] LB CBC no Diff (Hemogram) Reviewed date:11/10/2024 05:18:02 PM Interpretation: Performing Lab: Notes/Report: [facility] , White Blood Count 5.8 4.0-11.0 10 [...] 8.9 9.5-13.5 fL Performing Lab: see note ML - [facility] LB PTH, Intact Reviewed date:11/11/2024 12:33:51 PM Interpretation: Performing Lab: Notes/Report: [facility] , PTH, Intact 50 15-65 pg/mL Performed at: - [facility] [address] [id number] Nitrate Operator: Logan Martinez PhD, Phone: [phone] Performing Lab: see note - [facility] LB CBC AUTO DIFF Reviewed date:11/12/2024 06:37:31 PM Interpretation: Performing Lab: Notes/Report: [facility] , White Blood Count 7.3 4.0-11.0 10 3/uL Red Blood Count 4.71 4.70-6.10 10 6/uL Hemoglobin 15.1 14.0-18.0 g/dL Hematocrit 43.1 42.0-54.0 % Mean Corpuscular Volume 91.5 80.0-94.0 fL Mean Corpuscular Hemoglobin 32.1 25.9-34.0 pg Mean Corpuscular HGB Conc 35.0 29.9-35.2 g/dL Red Cell Distribution Width 12.1 11.0-15.0 % Platelet Count 219 150-450 10 3/uL Mean Platelet Volume 9.2 9.5-13.5 fL Neutrophils Percent Auto 55.9 43.0-75.0 % Lymphocytes Percent Auto 28.6 20.5-60.0 % Monocytes Percent Auto 10.8 1.7-12.0 % Eosinophils Percent Auto 3.7 0.9-7.0 % Basophils Percent Auto 0.7 0.2-2.0 % Immature Granulocytes Pct Auto 0.3 0.0-0.5 % Neutrophils Absolute Auto 4.1 1.4-6.5 10 3/uL Lymphocytes Absolute Auto 2.1 1.2-3.8 10 3/uL Monocytes Absolute Auto 0.8 0.3-0.8 10 3/uL Eosinophils Absolute Auto 0.3 0.0-0.7 10 3/uL Basophils Absolute Auto 0.1 0.0-0.1 10 3/uL Immature Granulocytes Abs Auto 0.02 0.00-0.03 10 3/uL Performing Lab: see note ML - [facility] LB UA Micro, reflex to culture Reviewed date:11/12/2024 06:37:31 PM Interpretation: Performing Lab: Notes/Report: [facility] , Color Urine YELLOW YELLOW Clarity Urine CLEAR CLEAR Specific [place] Urine >=1.030 1.005-1.025 pH Urine 5.5 5.0-9.0 Protein Urine TRACE NEG/TRACE mg/dL Glucose Urine UA NEGATIVE NEGATIVE mg/dL Bilirubin Urine NEGATIVE NEGATIVE Ketones Urine NEGATIVE NEGATIVE mg/dL Blood Urine LARGE NEGATIVE Nitrite Urine NEGATIVE NEGATIVE Urobilinogen Urine 1.0 0.2-1.0 EU/dL Leukocyte Esterase Urine NEGATIVE NEGATIVE WBC Urine 0-2 NONE SEEN #/HPF RBC Urine 50-75 0-2 #/HPF Bacteria Urine TRACE NONE SEEN #/HPF Mucus Urine TRACE NONE SEEN Squamous Epithelial Cell Urine RARE NONE/RARE #/LPF Crystals Seen? None Seen None Seen #/HPF Cast Seen? NONE SEEN NONE SEEN #/LPF Urine Culture Indicated NO Performing Lab: see note ML - [facility] LB CT abdomen pelvis wo con Reviewed date:11/12/2024 06:37:31 PM Interpretation: Performing Lab: Notes/Report: Source Facility: [facility]-[address] [place] [address] [place] [address] CT Scan Report Signed Patient: SUKHDEEP MARI MR#: [id number] : 1965 Acct:[id number] Age/Sex: 59 / M ADM Date: 11/11/24 Loc: ER Attending Dr: Ordering Physician: Sofia Hardy Date of Service: 11/11/24 Procedure(s): CT abdomen pelvis wo con Accession Number(s): [id number] cc: Blayne Packer M.D. [place] [id number] Patient Name: SUKHDEEP MARI MRN: [facility]:[id number] date: 1965 Sex: M Assigned Patient Location: ER Current Patient Location: ED.MAIN Accession/Order Number: [id number] Exam Date: 11/11/2024 20:29 Report Date: 11/11/2024 21:00 At the request of: SOFIA HARDY DO Procedure: CT abdomen pelvis wo con CT abdomen pelvis wo con 11/11/2024 8:33 PM SIGNS AND SYMPTOMS: Right flank pain, hematuria TECHNIQUE: Multidetector ct axial images of the abdomen and pelvis were obtained without IV contrast. Multiplanar reformats were performed and reviewed to further define anatomy and possible pathology. CT was performed with one or more of the following dose reduction techniques: Automated exposure control, adjustment of the mA and/or kV according to patient size, or use of iterative reconstruction technique. COMPARISON: 01/30/2023 FINDINGS: Lower Chest: There is a small right-sided pleural effusion. ABDOMEN: Liver: Within normal limits. Bile Ducts: Normal caliber. Gallbladder: No calcified gallstones. Normal caliber wall. Pancreas: Within normal limits. Spleen: Within normal limits. Adrenals: Within normal limits. Kidneys: There is a 3.3 cm simple appearing right renal cyst. There is a 4 mm stone at the inferior pole of the right renal collecting system. There is a 1 cm stone in the right renal pelvis. No hydronephrosis. Pelvis: Reproductive Organs: No pelvic masses. Ureters: Within normal limits. Bladder: Within normal limits. Bowel: Normal caliber. There is a normal appendix in the right lower quadrant. Mesenteric Lymph Nodes: No enlarged mesenteric lymph nodes. Peritoneum: No ascites or free air, no fluid collection. Vessels: Atherosclerotic changes are noted in the abdominal aorta. Retroperitoneum: Within normal limits. Abdominal Wall: There is a fat-containing ventral wall hernia. Bones: Posterior fusion hardware is noted from L2 through S1. There is evidence of posterior decompression at these levels. Degenerative changes are noted in the sacroiliac joints. CT/CT abdomen pelvis wo con IMPRESSION: There is a 1 cm stone in the right renal pelvis. This has migrated from the right renal collecting system when compared to the prior exam. No hydronephrosis. Smaller right-sided renal stones are noted. No ureteral or bladder stones. No bowel obstruction. Additional chronic findings are noted as above. Impression dictated by: Felipe Morgan M.D. 11/11/2024 9:00 PM Dictation Location: [place] [address] Electronically authenticated by: [id number] Y Date: 11/11/2024 21:00 Dictated By: Felipe Morgan M.D. Signed By: 11/11/242102 DD/ 99 TD/TT: Sand Caster: CBC AUTO DIFF Reviewed date:11/12/2024 06:37:31 PM Interpretation: Performing Lab: Notes/Report: [facility] , White Blood Count 6.5 4.0-11.0 10 3/uL Red Blood Count 4.51 4.70-6.10 10 6/uL Hemoglobin 14.5 14.0-18.0 g/dL Hematocrit 41.1 42.0-54.0 % Mean Corpuscular Volume 91.1 80.0-94.0 fL Mean Corpuscular Hemoglobin 32.2 25.9-34.0 pg Mean Corpuscular HGB Conc 35.3 29.9-35.2 g/dL Red Cell Distribution Width 12.3 11.0-15.0 % Platelet Count 201 150-450 10 3/uL Mean Platelet Volume 9.5 9.5-13.5 fL Neutrophils Percent Auto 48.6 43.0-75.0 % Lymphocytes Percent Auto 35.1 20.5-60.0 % Monocytes Percent Auto 11.2 1.7-12.0 % Eosinophils Percent Auto 4.0 0.9-7.0 % Basophils Percent Auto 0.9 0.2-2.0 % Immature Granulocytes Pct Auto 0.2 0.0-0.5 % Neutrophils Absolute Auto 3.2 1.4-6.5 10 3/uL Lymphocytes Absolute Auto 2.3 1.2-3.8 10 3/uL Monocytes Absolute Auto 0.7 0.3-0.8 10 3/uL Eosinophils Absolute Auto 0.3 0.0-0.7 10 3/uL Basophils Absolute Auto 0.1 0.0-0.1 10 3/uL Immature Granulocytes Abs Auto 0.01 0.00-0.03 10 3/uL Performing Lab: see note - [facility] PROF CHEM 8 (BAS METB) Reviewed date:11/12/2024 06:37:31 PM Interpretation: Performing Lab: Notes/Report: [facility] , Sodium 144 136-145 mmol/L Potassium 3.8 3.5-5.1 mmol/L Chloride 108 98-107 mmol/L Carbon Dioxide 27.1 21.0-32.0 mmol/L Anion Gap 12.7 Glucose 154 74-106 mg/dL Blood Urea Nitrogen 27.0 7.0-18.0 mg/dL Creatinine 1.44 0.70-1.30 mg/dL Estimated GFR ( Tess >60 >=60 mL/mi n/1.73m 2 Estimated GFR (Non- Cherise 50 >=60 mL/mi n/1.73m 2 BUN Creatinine Ratio 18.8 Calcium 8.4 8.5-10.1 mg/dL Performing Lab: see note [facility] UA Micro, reflex to culture Reviewed date:11/12/2024 06:37:31 PM Interpretation: Performing Lab: Notes/Report: [facility] , Color Urine YELLOW YELLOW Clarity Urine CLEAR CLEAR Specific [place] Urine 1.025 1.005-1.025 pH Urine 5.0 5.0-9.0 Protein Urine NEGATIVE NEG/TRACE mg/dL Glucose Urine UA NEGATIVE NEGATIVE mg/dL Bilirubin Urine NEGATIVE NEGATIVE Ketones Urine NEGATIVE NEGATIVE mg/dL Blood Urine LARGE NEGATIVE Nitrite Urine NEGATIVE NEGATIVE Urobilinogen Urine 0.2 0.2-1.0 EU/dL Leukocyte Esterase Urine NEGATIVE NEGATIVE WBC Urine 0-2 NONE SEEN #/HPF RBC Urine 20-50 0-2 #/HPF Bacteria Urine TRACE NONE SEEN #/HPF Mucus Urine TRACE NONE SEEN Squamous Epithelial Cell Urine FEW NONE/RARE #/LPF Crystals Seen? None Seen None Seen #/HPF Cast Seen? NONE SEEN NONE SEEN #/LPF Urine Culture Indicated NO Performing Lab: see note ML - [facility] LB CT abdomen pelvis wo con Reviewed date:11/12/2024 06:37:31 PM Interpretation: Performing Lab: Notes/Report: Source Facility: [facility] [place] [address] CT Scan Report Signed Patient: SUKHDEEP MARI MR#: [id number] : 1965 Acct:[id number] Age/Sex: 59 / M ADM Date: 11/12/24 Loc: ER Attending Dr: Ordering Physician: Blanka Maza Date of Service: 11/12/24 Procedure(s): CT abdomen pelvis wo con Accession Number(s): [id number] cc: Blayne Packer M.D. [place] [address] Patient Name: SUKHDEEP MARI MRN: [id number] date: 1965 Sex: M Assigned Patient Location: ER Current Patient Location: ER Accession/Order Number: [id number] Exam Date: 11/12/2024 17:52 Report Date: 11/12/2024 18:15 At the request of: BLANKA NOVAK Procedure: CT abdomen pelvis wo con CT abdomen pelvis wo con 11/12/2024 5:57 PM SIGNS AND SYMPTOMS: R Kidney stone, right flank pain eval for obstruction TECHNIQUE: Multidetector ct axial images of the abdomen and pelvis were obtained without IV contrast. Multiplanar reformats were performed and reviewed to further define anatomy and possible pathology. CT was performed with one or more of the following dose reduction techniques: Automated exposure control, adjustment of the mA and/or kV according to patient size, or use of iterative reconstruction technique. COMPARISON: 11/11/2024 FINDINGS: Lower Chest: Small bilateral pleural effusions are present. There is dependent atelectasis in the right lung base. ABDOMEN: Liver: Within normal limits. Bile Ducts: Normal caliber. Gallbladder: No calcified gallstones. Normal caliber wall. Pancreas: Within normal limits. Spleen: Within normal limits. Adrenals: Within normal limits. Kidneys: There is a 1.2 cm stone in the right renal pelvis. This is unchanged in position when compared with prior exam. There is no hydronephrosis. Additional smaller right-sided renal stones are noted. Simple cysts are noted in the right renal cortex requiring no further follow-up. Pelvis: Reproductive Organs: No pelvic masses. Ureters: Within normal limits. Bladder: Within normal limits. Bowel: Normal caliber. There is a normal appendix in the right lower quadrant. Postsurgical changes are noted along the gastric wall. Mesenteric Lymph Nodes: No enlarged mesenteric lymph nodes. Peritoneum: No ascites or free air, no fluid collection. Vessels: Atherosclerotic changes are noted in the abdominal aorta and its branches Retroperitoneum: Within normal limits. Abdominal Wall: Within normal limits. Bones: There is posterior fusion from L2 through S1. CT/CT abdomen pelvis wo con IMPRESSION: There is a 1.2 cm stone in the right renal pelvis. This is unchanged in position when compared with prior exam. There is no hydronephrosis. Additional smaller right-sided renal stones are noted. Simple cysts are noted in the right renal cortex requiring no further follow-up. Impression dictated by: Felipe Morgan M.D. 11/12/2024 6:15 PM Dictation Location: [place] [address] Electronically authenticated by: [id number] Y Date: 11/12/2024 18:15 Dictated By: Felipe Morgan M.D. Signed By: 11/12/241816 DD/ 14 TD/TT: Sand Caster: BNP Reviewed date:11/13/2024 05:16:54 PM Interpretation: Performing Lab: Notes/Report: [facility] , NT Pro B Type Natriuretic Pept 321.0 <=900.0 pg /mL Performing Lab: see note ML - [facility] LB CBC AUTO DIFF Reviewed date:11/13/2024 05:16:54 PM Interpretation: Performing Lab: Notes/Report: [facility] , White Blood Count 6.3 4.0-11.0 10 3/uL Red Blood Count 4.32 4.70-6.10 10 6/uL Hemoglobin 13.7 14.0-18.0 g/dL Hematocrit 40.1 42.0-54.0 % Mean Corpuscular Volume 92.8 80.0-94.0 fL Mean Corpuscular Hemoglobin 31.7 25.9-34.0 pg Mean Corpuscular HGB Conc 34.2 29.9-35.2 g/dL Red Cell Distribution Width 12.1 11.0-15.0 % Platelet Count 196 150-450 10 3/uL Mean Platelet Volume 9.7 9.5-13.5 fL Neutrophils Percent Auto 47.8 43.0-75.0 % Lymphocytes Percent Auto 36.2 20.5-60.0 % Monocytes Percent Auto 10.0 1.7-12.0 % Eosinophils Percent Auto 4.8 0.9-7.0 % Basophils Percent Auto 1.0 0.2-2.0 % Immature Granulocytes Pct Auto 0.2 0.0-0.5 % Neutrophils Absolute Auto 3.0 1.4-6.5 10 3/uL Lymphocytes Absolute Auto 2.3 1.2-3.8 10 3/uL Monocytes Absolute Auto 0.6 0.3-0.8 10 3/uL Eosinophils Absolute Auto 0.3 0.0-0.7 10 3/uL Basophils Absolute Auto 0.1 0.0-0.1 10 3/uL Immature Granulocytes Abs Auto 0.01 0.00-0.03 10 3/uL Performing Lab: see note - [facility] LB PROF CHEM 8 (BAS METB) Reviewed date:11/13/2024 05:16:54 PM Interpretation: Performing Lab: Notes/Report: [facility] , Sodium 144 136-145 mmol/L Potassium 4.1 3.5-5.1 mmol/L Chloride 108 98-107 mmol/L Carbon Dioxide 29.7 21.0-32.0 mmol/L Anion Gap 10.4 Glucose 102 74-106 mg/dL Blood Urea Nitrogen 27.0 7.0-18.0 mg/dL Creatinine 1.35 0.70-1.30 mg/dL Estimated GFR ( Tess >60 >=60 mL/mi n/1.73m 2 Estimated GFR (Non- Cherise 54 >=60 mL/mi n/1.73m 2 BUN Creatinine Ratio 20.0 Calcium 8.3 8.5-10.1 mg/dL Performing Lab: see note - [facility] LB ECG 12 lead Reviewed date:11/14/2024 03:51:42 PM Interpretation: Performing Lab: Notes/Report: Source Facility: [place] [address] [place] [address] Electrocardiograph Report Signed Patient: SUKHDEEP MARI MR#: [id number] : 1965 Acct:[id number] Age/Sex: 59 / M ADM Date: 11/12/24 Loc: [place] 224-[address]: Janusz Carlton M.D. Ordering Physician: Karthik An II, M.D. Date of Service: 11/13/24 Procedure(s): ECG 12 lead Accession Number(s): [id number] cc: [facility] Test Date: 2024-11-13 Pat Name: SUKHDEEP MARI Department: Room: [facility] Gender: Male Dial Printer: : 1965 Requested By: BLAYNE PACKER Order Number: [id number] Reading MD: GENESIS CAR M.D. Measurements Intervals [place] Rate: 132 P: [place]: QRS: -15 QRSD: 95 T: 233 QT: 328 QTc: 487 Interpretive Statements ATRIAL FIBRILLATION WITH RAPID VENTRICULAR RESPONSE NONSPECIFIC ST T-WAVE ABNORMALITY Compared to ECG 07/15/2021 13:14:48 T-wave abnormality now present Sinus rhythm no longer present Electronically Signed On 11-13-2024 19:59:45 EDT by GENESIS CAR M.D. Dictated By: GENESIS CAR Signed By: 11/13/241999 DD/ 4 TD/TT: Sand Caster: NIKA chest 1V Reviewed date:11/13/2024 05:16:54 PM Interpretation: Performing Lab: Notes/Report: Source Facility: [place] [address] [place] [address] XRay Report Signed Patient: SUKHDEEP MARI MR#: [id number] : 1965 Acct:[id number] Age/Sex: 59 / M ADM Date: 11/12/24 Loc: [place] 224-[address]: Janusz Carlton M.D. Ordering Physician: Janusz Carlton M.D. Date of Service: 11/13/24 Procedure(s): XR chest 1V Accession Number(s): [id number] cc: Blayne Packer M.D.; Janusz Carlton M.D. [place] [address] Patient Name: SUKHDEEP MARI MRN: [id number] date: 1965 Sex: M Assigned Patient Location: MS Current Patient Location: MS Accession/Order Number: [id number] Exam Date: 11/13/2024 15:30 Report Date: 11/13/2024 16:35 At the request of: JANUSZ CARLTON MD Procedure: XR chest 1V XR chest 1V 11/13/2024 3:38 PM SIGNS AND SYMPTOMS: post op PROTOCOL: Frontal radiograph of the chest COMPARISON: 04/10/2024 FINDINGS: The trachea is midline. There is mild cardiomegaly. Perihilar vascular prominence is noted with interstitial prominence. The lung parenchyma is clear. The bony thorax is intact. XR/XR chest 1V IMPRESSION: There is mild cardiomegaly with perihilar vascular prominence suggesting volume overload. Impression dictated by: Felipe Morgan M.D. 11/13/2024 4:35 PM Dictation Location: [place] [address] Electronically authenticated by: [id number] Y Date: 11/13/2024 16:35 Dictated By: Felipe Morgan M.D. Signed By: 11/13/24 1637 DD/ 163 TD/TT: Sand Caster: ECG 12 lead Reviewed date:11/14/2024 03:51:42 PM Interpretation: Performing Lab: Notes/Report: Source Facility: [place] [address] Electrocardiograph Report Signed Patient: SUKHDEEP MARI MR#: [id number] : 1965 Acct:[id number] Age/Sex: 59 / M ADM Date: 11/12/24 Loc: [place] 224-[address]: Janusz Carlton M.D. Ordering Physician: Janusz Carlton M.D. Date of Service: 11/13/24 Procedure(s): ECG 12 lead Accession Number(s): [id number] cc: [facility] Test Date: 2024-11-13 Pat Name: SUKHDEEP MARI Department: Room: [facility] Gender: Male Dial Printer: : 1965 Requested By: BLAYNE PACKER Order Number: [id number] Reading MD: GENESIS CAR M.D. Measurements Intervals [place] Rate: 64 P: 37 WV: 188 QRS: -10 QRSD: 90 T: 44 QT: 398 QTc: 408 Interpretive Statements 1100 Sinus rhythm 9110 normal ECG Compared to ECG 11/13/2024 13:03:13 Atrial fibrillation no longer present T-wave abnormality no longer present Electronically Signed On 11-13-2024 20:04:46 EDT by GENESIS CAR M.D. Dictated By: GENESIS CAR Signed By: 11/13/242004 DD/ 36 TD/TT: Sand Caster: PROF IAM Cisse ([facility]) Reviewed date:11/14/2024 03:51:42 PM Interpretation: Performing Lab: Notes/Report: [facility] , Sodium 142 136-145 mmol/L Potassium 3.5 3.5-5.1 mmol/L Chloride 104 98-107 mmol/L Carbon Dioxide 26.6 21.0-32.0 mmol/L Anion Gap 14.9 Glucose 170 74-106 mg/dL Blood Urea Nitrogen 23.0 7.0-18.0 mg/dL Creatinine 1.58 0.70-1.30 mg/dL Estimated GFR ( Tess 54 >=60 mL/mi n/1.73m 2 Estimated GFR (Non- Cherise 45 >=60 mL/mi n/1.73m 2 BUN Creatinine Ratio 14.6 Calcium 8.3 8.5-10.1 mg/dL Performing Lab: see note ML - [facility] LB CBC no Diff (Hemogram) Reviewed date:11/14/2024 03:51:42 PM Interpretation: Performing Lab: Notes/Report: [facility] , White Blood Count 7.9 4.0-11.0 10 3/uL Red Blood Count 4.51 4.70-6.10 10 6/uL Hemoglobin 14.4 14.0-18.0 g/dL Hematocrit 41.7 42.0-54.0 % Mean Corpuscular Volume 92.5 80.0-94.0 fL Mean Corpuscular Hemoglobin 31.9 25.9-34.0 pg Mean Corpuscular HGB Conc 34.5 29.9-35.2 g/dL Red Cell Distribution Width 12.0 11.0-15.0 % Platelet Count 196 150-450 10 3/uL Mean Platelet Volume 9.4 9.5-13.5 fL Performing Lab: see note ML - [facility] LB XR chest 1V Reviewed date:11/14/2024 03:51:42 PM Interpretation: Performing Lab: Notes/Report: Source Facility: [place] [address] [place] [address] XRay Report Signed Patient: SUKHDEEP MARI MR#: [id number] : 1965 Acct:[id number] Age/Sex: 59 / M ADM Date: 11/12/24 Loc: [place] 224-[address]: Janusz Carlton M.D. Ordering Physician: Janusz Carlton M.D. Date of Service: 11/14/24 Procedure(s): XR chest 1V Accession Number(s): [id number] cc: Blayne Packer M.D.; Janusz Carlton M.D. The [place] [address] Patient Name: SUKHDEEP MARI MRN: [id number] date: 1965 Sex: M Assigned Patient Location: [place] Current Patient Location: Accession/Order Number: [id number] Exam Date: 11/14/2024 13:45 Report Date: 11/14/2024 14:51 At the request of: JANUSZ CARLTON MD Procedure: XR chest 1V PA CHEST: CLINICAL HISTORY: Follow up CHF COMPARISON: 11/13/2024 Similar mild cardiomegaly. Improved perihilar pulmonary vascular congestion and interstitial edema. No focal opacity or effusion. No pneumothorax. XR/XR chest 1V IMPRESSION: Improved CHF Impression dictated by: Facundo Kamara M.D. 11/14/2024 2:51 PM Dictation Location: [place] [address] Electronically authenticated by: [id number] Y Date: 11/14/2024 14:51 Dictated By: Facundo Kamara M.D. Signed By: 11/14/24 1454 DD/ 50 TD/TT: Sand Caster: ECG 12 lead Reviewed date:11/14/2024 03:51:42 PM Interpretation: Performing Lab: Notes/Report: Source Facility: [place] [address] Electrocardiograph Report Signed Patient: SUKHDEEP MARI MR#: [id number] : 1965 Acct:[id number] Age/Sex: 59 / M ADM Date: 11/12/24 Loc: [place] 224- Attending Dr: Janusz Carlton M.D. Ordering Physician: Karthik An II, M.D. Date of Service: 11/13/24 Procedure(s): ECG 12 lead Accession Number(s): [id number] cc: [facility] Test Date: 2024-11-13 Pat Name: SUKHDEEP MARI Department: Room: [facility] Gender: Male Dial Printer: : 1965 Requested By: [id number] Order Number: [id number] Reading MD: GENESIS CAR M.D. Measurements Intervals [place] Rate: 122 P: -89 WV: 198 QRS: -14 QRSD: 96 T: -69 QT: 317 QTc: 452 Interpretive Statements ATRIAL FIBRILLATION WITH RAPID VENTRICULAR RESPONSE NONSPECIFIC ST T-WAVE ABNORMALITY ABNORMAL ECG Compared to ECG 11/13/2024 09:25:11 No significant changes Electronically Signed On 11-13-2024 20:04:31 EDT by GENESIS CAR M.D. Dictated By: GENESIS CAR Signed By: 11/13/24200311/13/242003 DD/ 1303 TD/TT: Sand Caster: RUSSEL echo doppler complete Reviewed date:11/14/2024 03:51:42 PM Interpretation: Performing Lab: Notes/Report: Source Facility: [place] [address] Cardiology Report Signed Patient: SUKHDEEP MARI MR#: [id number] : 1965 Acct:[id number] Age/Sex: 59 / M ADM Date: 11/12/24 Loc: [place] 224-[address]: Janusz Carlton M.D. Ordering Physician: Janusz Carlton M.D. Date of Service: 11/13/24 Procedure(s): CA echo doppler complete Accession Number(s): [id number] cc: Blayne Packer M.D.; Janusz Carlton M.D. Patient Name: SUKHDEEP MARI MR#: [id number] : 1965 Exam Date: 11/13/2024 Ordering Doctor: JANUSZ CARLTON ECHOCARDIOGRAM REPORT PROCEDURE: CA ECHO DOPPLER COMPLETE INDICATIONS: SVT COMPARISON: None. DESCRIPTION: COMPLETE ECHOCARDIOGRAM Real-time transthoracic echocardiography with 2D, M-mode, spectral and color flow Doppler performed. QUALITY: Technical quality was good. LEFT VENTRICLE: Normal chamber size. Mild concentric hypertrophy. Global left ventricular systolic function is normal. LV EF: Estimated left ventricular ejection fraction is 55-60%. DIASTOLIC: Normal diastolic function. ATRIAL SEPTUM: LEFT ATRIUM: Normal chamber size. RIGHT ATRIUM: Mild dilatation. RIGHT VENTRICLE: Mild dilatation. Normal right ventricular systolic function. TRICUSPID VALVE: Normal mobility and thickness. No stenosis with trivial regurgitation. Mild pulmonary hypertension. RVSP 35 mmHg. MITRAL VALVE: Normal mobility and thickness. No evidence of mitral valve stenosis. There is no mitral annular calcification. Trivial mitral regurgitation. AORTIC VALVE: Normal trileaflet appearance. No visible sclerosis. Normal leaflet mobility. No evidence of aortic valve stenosis. No aortic regurgitation. AORTIC ROOT: Mildly dilated, measuring 4.0 cm. The ascending aorta is mildly dilated and measures 3.7 cm. PULMONIC VALVE: Normal thickness and mobility. No stenosis. Trivial regurgitation. PERICARDIUM: Trivial pericardial effusion. IVC: Collapses with inspiration. Mildly dilated measuring 2.3 cm. PLEURA: CONCLUSION: 1. Mild concentric left ventricular hypertrophy with normal systolic function. LVEF is estimated at 55 to 60%. 2. Mildly dilated right ventricle with normal systolic function. 3. Normal diastolic function. 4. Mild right atrial dilatation. 5. No significant valvular dysfunction. 6. Mildly elevated right-sided pressures. 7. Mildly dilated ascending aorta. Adult Echocardiography Procedure Report Left Ventricle LVEDD (3.7 - 5.6 cm): 5.47 cm LVESD (2.2 - 4.0 cm): 3.40 cm LVIVS thickness (0.6 - 1.2 cm): 1.05 cm LVPW thickness (0.5 - 1.0 cm): 1.40 cm e': 0.10 m/s E - e': 6.93 LVOT Max Gradient: 5.77 mm[Hg] LVOT Area (cm2): 1.20 m/s Peak Velocity (LVOT): 1.20 m/s Mean Velocity (LVOT): 0.78 m/s LVOT Diameter 2.30 cm Left Ventricular Ejection Fraction: 55-60 % Left Atrium LA Volume Index (2D A2C): 28.93 ml/m2 Left Atrium Systolic Dimension: 3.96 cm Mitral Valve MV E to A Ratio: 0.80 Mitral Valve A-Wave Peak Velocity: 0.84 m/s Mitral Valve E-Wave Peak Velocity: 0.67 m/s Right Ventricle RV Internal Diastolic Dimension: 3.84 cm Aorta AO Root Diam: 3.96 cm Ascending Ao Diam: 3.70 cm Aortic Valve AoV Area (Peak Emmanuel): 2.87 cm2, 2.87 cm2 AoV Area (VTI): 3.15 cm2, 3.15 cm2 Peak Velocity(Antegrade Flow): 1.73 m/s Peak Gradient(Antegrade Flow): 11.95 mm[Hg] Mean Velocity(Antegrade Flow): 1.13 m/s Mean Gradient(Antegrade Flow): 5.61 mm[Hg] Velocity Time Integral: 32.01 cm Tricuspid Valve Peak Velocity (Regurgitant Flow): 2.59 m/s Pulmonic Valve Peak Velocity: 0.94 m/s Peak Gradient: 3.94 mm[Hg], 3.13 mm[Hg] Right Atrium Right Atrium Systolic Pressure: 98.63 ml, 98.63 ml Dictated by: Genesis Car M.D. on 11/13/2024 at 20:22 Approved by: Genesis Car M.D. on 11/13/2024 at 20:27 Dictated By: GENESIS CAR Signed By: 11/13/242027 DD/ 26 TD/TT: Sand Caster: PROF Thompson(COMP METB) Reviewed date:11/12/2024 06:37:31 PM Interpretation: Performing Lab: Notes/Report: [facility] , Sodium 145 136-145 mmol/L Potassium 4.2 3.5-5.1 mmol/L Chloride 109 98-107 mmol/L Carbon Dioxide 29.9 21.0-32.0 mmol/L Anion Gap 10.3 Glucose 109 74-106 mg/dL Blood Urea Nitrogen 22.0 7.0-18.0 mg/dL Creatinine 1.27 0.70-1.30 mg/dL Estimated GFR ( Tess >60 >=60 mL/mi n/1.73m 2 Estimated GFR (Non- Cherise 58 >=60 mL/mi n/1.73m 2 BUN Creatinine Ratio 17.3 Calcium 9.2 8.5-10.1 mg/dL Bilirubin Total 0.4 0.2-1.0 mg/dL Aspartate Amino Transferase 28 15-37 U/L Alanine Aminotransferase 48 16-63 U/L Alkaline Phosphatase 71 46-116 U/L Total Protein 7.6 6.4-8.2 g/dL Albumin Level 3.9 3.4-5.0 g/dL Globulin 3.7 Albumin Globulin Ratio 1.1 Performing Lab: see note ML - [facility] LB Erythrocyte Sedimentation Ra te Reviewed date:03/17/2024 01:14:22 PM Interpretation: Performing Lab: Notes/Report: [facility] , Erythrocyte Sedimentation Rate 8 <=20 mm/hr Performing Lab: see note ML - [facility] LB Testosterone Reviewed date:11/24/2023 11:48:26 AM Interpretation: Performing Lab: Notes/Report: [facility] , Testosterone 628 264-916 ng/dL Adult male reference interval is based on a population of healthy nonobese males (BMI <30) between 19 and 39 years old. Gavi et.al. JCEM 2017,102;4771-5668. PMID: 51357531. Performed at: - [facility] [address] [id number] Nitrate Operator: Logan Maritnez PhD, Phone: [phone] Performing Lab: see note - [facility] LB XR chest 2V Reviewed date:04/11/2024 02:13:28 PM Interpretation: Performing Lab: Notes/Report: Source Facility: [place] [address] XRay Report Signed Patient: SUKHDEEP MARI MR#: [id number] : 1965 Acct:[id number] Age/Sex: 58 / M ADM Date: 04/10/24 Loc: [facility] Attending Dr: Blayne Packer M.D. Ordering Physician: Blayne Packer M.D. Date of Service: 04/10/24 Procedure(s): XR chest 2V Accession Number(s): [id number] cc: Blayne Packer M.D. [place] [address] Patient Name: SUKHDEEP MARI MRN: [id number] date: 1965 Sex: M Assigned Patient Location: [facility] Current Patient Location: Accession/Order Number: [id number] Exam Date: 04/10/2024 11:30 Report Date: 04/11/2024 [...] OBIE TSE Date: 04/11/2024 08:26 Dictated By: Obei Tse M.D. Signed By: 04/11/24 0828 DD/ 0826 TD/TT: Sand Caster: ECG 12 lead Reviewed date:11/15/2024 06:32:46 PM Interpretation: Performing Lab: Notes/Report: Source Facility: [facility] [place] [address] [place] [address] Electrocardiograph Report Signed Patient: SUKHDEEP MARI MR#: [id number] : 1965 Acct:[id number] Age/Sex: 59 / M ADM Date: 11/12/24 Loc: [place] 224- Attending Dr: Janusz Carlton M.D. Ordering Physician: Janusz Carlton M.D. Date of Service: 11/14/24 Procedure(s): ECG 12 lead Accession Number(s): [id number] cc: [facility] Test Date: 2024-11-14 Pat Name: SUKHDEEP MARI Department: Room: [facility] Gender: Male Dial Printer: : 1965 Requested By: BLAYNE PACKER Order Number: [id number] Reading MD: GENESIS CAR M.D. Measurements Intervals [place] Rate: 66 P: 51 WV: 204 QRS: 6 QRSD: 96 T: 90 QT: 390 QTc: 403 Interpretive Statements 1100 Sinus rhythm 4068 Nonspecific Twave abnormality 9130 borderline ECG Compared to ECG 11/13/2024 15:37:47 No significant changes Electronically Signed On 11-15-2024 13:51:05 EDT by GENESIS CAR M.D. Dictated By: GENESIS CAR Signed By: 11/15/24 1351 DD/ 0445 TD/TT: Sand Caster: Reason For Referral No Information Medications Medication SIG (Take, Route, Frequency, Duration) Notes Start Date End Date Status predniSONE 20 MG 3 tablets Orally Onc e a day; Duration: 5 days 09/21/2024 Active Tamsulosin HCl 0.4 mg TAKE 1 CAPSULE BY MOUTH DAILY; Duration: 30 Active Crestor 5 MG 1 tablet Orally Once a day; Duration: 30 day(s) 11/17/2024 Active Reglan 10 MG 1 tablet before meal s Orally Twice a day; Duration: 90 days PRN Active tiZANidine HCl 4 mg TAKE 2 TABLETS BY MO UT AT BEDTIME; Duration: 30 Active Testosterone Cypionate 200 mg/mL INJECT 3/4 mls INTRAMUSCULARLY EVERY 2 (TWO) weeks *MUST LAST 30 DAYS*; Duration: 30 10/05/2024 Active Bumetanide 1 mg TAKE 1 TABLET BY JUAN CARLOS ONCE DAILY; Duration: 30 Active traZODone HCl 150 mg TAKE 1 TABLET BY MO UT AT BEDTIME; Duration: 30 Active Toprol XL 25 MG 1 tablet Orally Once a day 025 Active Irbesartan 75 MG 1 tablet Orally Once a day; Duration: 60 days Active oxyCODONE-Acetaminophen 10-325 MG TAKE 1 TABLET BY MOUTH EVERY 6 HOURS NEEDED *MUST LAST 30 DAYS*; Duration: 30 11/12/2024 Active oxyBUTYnin Chloride 5 MG 1 tablet Orally twice a day 11/17/2024 Active Social History Tobacco Use: Social History [...] W/U Status Risk Notes Problem Testicular hypofunction (428910402) Testicular hypofunction (E29.1) Active confirmed Problem Lumbosacral spondylosis without myelopathy (95616421) Spondylosis without myelopathy or radiculopathy, 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M47.816) Active confirmed Problem Degeneration of lumbar intervertebral disc (21209155) Other intervertebral disc degeneration, 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M51.36) Active confirmed Problem Hypertension (59421306) Hypertension (I10) Active confirmed Problem Edema (84180391) Edema (R60.9) Active confirmed Problem Pain of right knee region (finding) (254162216757990) Knee pain, right (M25.561) Active confirmed Problem Cellulitis (667431376) Cellulitis (L03.90) Active confirmed Problem Shingles (2490470) Shingles (B02.9) Active conf irmed Problem Acute cor pulmonale co-occurrent and due to saddle embolus of pulmonary artery (disorder) (70538130799148052) Acute saddle pulmonary embolism with acute cor pulmonale (I26.02) Active confirmed Problem Acute diarrhea (973734643) Acute diarrhea (R19.7) Active confirmed Problem Acute bronchiolitis (4678872) Acute bronchiolitis (J21.9) Active confirmed Problem Hypercholesterolemia (78474076) Hypercholesterolemia (E78.00) Active confirmed Problem Pneumococcal pneumonia (194097142) Left lower lobe consolidation (J18.1) Active confirmed Vital Signs Temperature 98.9 degrees Fahrenheit 04/03/2024 Blood pressure diastolic 82 mm Hg 11/17/2024 Height 69 in 11/17/2024 Blood pressure systolic 130 mm Hg 11/17/2024 Weight 281.6 lbs 11/17/2024 BMI 41.58 kg/m2 11/17/2024 Encounters Encounter Location Date Provider Diagnosis [facility] [address] [place] [address] 11/12/2024 Abelardo [facility] [address] [place] [address] 11/13/2024 [facility] [address] [place] [address] 11/17/2024 Abelardo Packer UTI (urinary tract infection) N39.0 [facility] [address] [place] [address] 11/17/2024 Abelardo Packer [facility] [address] [place] [address] 09/04/2024 Abelardo [facility] [address] [place] [address] 09/21/2024 Abelardo Packer [facility] [address] [place] [address] 10/05/2024 Abelardo [facility] [address] [place] [address] 10/13/2024 Abelardo edgar [facility] [address] [place] [address] 11/10/2024 Abelardo Packer [facility] [address] [facility] [place] [address] 11/11/2024 Abelardo edgar [facility] [address] [facility] [place] [address] 04/11/2024 Abelardo Packer [facility] [address] [facility] [place] [address] 04/27/2024 Abelardo Packer [facility] [address] [facility] [place] [address] 05/15/2024 Abelardo edgar [facility] [address] [facility] [place] [address] 07/28/2024 Abelarod Packer [facility] [address] [facility] [place] [address] 08/07/2024 Abelardo Bañuelosedgar [facility] [address] [facility] [place] [address] 08/18/2024 Abelardo Sarmady [facility] [address] [facility] [place] [address] 01/30/2024 Abelardo Hoy Spondylosis without myelopathy or radiculopathy, lumbar region M47.816 [facility] [address] [place] [facility] [place] [address] 02/24/2024 Abelardo Sarmady [facility] [address] [facility] [place] [address] 03/03/2024 Abelardo Hoy Spondylosis without myelopathy or radiculopathy, lumbar region M47.816 [facility] [address] [facility] [place] [address] 03/17/2024 Abelardo Hoy Knee pain, right M25 .561 [facility] [address] [facility] [place] [address] 04/06/2024 Abelardo Hoy Spondylosis without myelopathy or radiculopathy, lumbar region M47.816 and Acute non-recurrent sinusitis, unspecified location J01.90 [facility] [address] [place] [facility] [place] [address] 04/08/2024 Abelardo Hoy Cough R05.9 [facility] [address] [place] [facility] [place] [address] 11/24/2023 Abelardo Hoy [facility] [address] [place] [facility] [address] 12/03/2023 Abelardo Hoy [facility] [address] [place] [facility] [place] [address] 12/04/2023 Abelardo Hoy [facility] [address] [place] [facility] [place] [address] 12/23/2023 Estephanie Geri Spondylosis without myelopathy or radiculopathy, lumbar region M47.816 [facility] [address] [place] [facility] [place] [address] 12/31/2023 Abelardo Hoy [facility] [address] [place] [place] [address] 01/09/2024 Abelardo Hoy [facility] [address] [place] [place] [place] [address] 11/21/2023 Abelardo Hoy 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 [facility] [address] [place] [place] [address] 06/15/2024 Abelardo Hoy Spondylosis without myelopathy or radiculopathy, lumbar region M47.816 [facility] [address] [place] [place] [address] 07/15/2024 Abelardo Hoy Edema R60.9 ; Hypert ension I10 and Encounter for medication review Z79.899 [facility] [address] [place] [place] [address] 08/14/2024 Abelardo Hoy Edema R60.9 [facility] [address] [place] [place] [address] 09/14/2024 Abelardo Hoy Hypertension I10 and Edema R60.9 [facility] [address] [place] [place] [address] 11/17/2024 Abelardo Hoy Hypertension I10 ; Hypercholesterolemia E78.00 and Well adult Z00.00 [facility] [address] [place] [address] 11/25/2023 Abelardo Hoy 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 and Spondylosis without myelopathy or radiculopathy, lumbar region M47.816 [facility] [address] [place] [address] 12/31/2023 Abelardo Hoy Other intervertebral disc degeneration, lumbar region M51.36 [facility] [address] [place] [address] 02/07/2024 Abelardo Hoy Other intervertebral disc degeneration, lumbar region M51.36 [facility] [address] [place] [facility] [place] [address] 05/15/2024 Abelardo Hoy Knee pain, right M25 .561 [facility] [address] [place] [address] 03/16/2024 Abelardo Hoy Knee pain, right M25 .561 [facility] [address] [place] [facility] [place] [address] 04/03/2024 Abelardo Hoy Acute non-recurrent sinusitis, unspecified location J01.90 and Nasal congestion R09.81 Assessments Encounter Date Diagnosis (ICD Code) Assessment Notes Treatment Notes Treatment Clinical Notes Section Notes 03/16/2024 Knee pain, right (ICD-10 - M25.561) 01/30/2024 Spondylosis without myelopathy or radiculopathy, 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ICD-10 - M47.816) 02/07/2024 Other intervertebral disc degeneration, 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ICD-10 - M51.36) stil neds weight loss 05/15/2024 Knee pain, right (ICD-10 - M25.561) see n Dr Hutton - nurse [phone] feel like infection coming back 09/14/2024 Hypertension (ICD-10 - I10) inc water pil to bid for 09/14/2024 Edema (ICD-10 - R60.9) 11/25/2023 Testicular hypofunct ion (ICD-10 - E29.1) level was dfin but wa day after injection - 11/25/2023 Spondylosis without myelopathy or radiculopathy, 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ICD-10 - M47.816) needs weith loss 11/21/2023 Testicular hypofunct ion (ICD-10 - E29.1) 03/17/2024 Knee pain, right (ICD-10 - M25.561) 12/23/2023 Spondylosis without myelopathy or radiculopathy, 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ICD-10 - M47.816) 12/31/2023 Other intervertebral disc degeneration, 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ICD-10 - M51.36) 07/15/2024 Edema (ICD-10 - R60.9) 07/15/2024 Hypertension (ICD-10 - I10) 03/03/2024 Spondylosis without myelopathy or radiculopathy, 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ICD-10 - M47.816) 11/17/2024 Hypertension (ICD-10 - I10) 11/17/2024 Hypercholesterolemia (ICD-10 - E78.00) 11/17/2024 UTI (urinary tract infection) (ICD-10 - N39.0) 06/15/2024 Spondylosis without myelopathy or radiculopathy, 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ICD-10 - M47.816) 04/06/2024 Spondylosis without myelopathy or radiculopathy, 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ICD-10 - M47.816) 04/03/2024 Acute non-recurrent sinusitis, unspecified location (ICD-10 - J01.90) Rest and drink more liquids, especially water. You may use a humidifier or vaporizer to help keep the drainage moist. Baru-pdd-zzqrqqd Nasal Saline may help the stuffy and runny nose. Use Ibuprofen and or Tylenol as needed for fever, chills, body aches or pain. Children 5 years old should not be given agik-jia-seojqys cough and cold medications such as guaifenesin and dextromethorphan. If you're over age 5, you may try vsre-zbg-svtpewn cold medications such as guaifenesin and dextromethorphan, [...] symptoms do not improve within 3-5 days 04/08/2024 Cough (ICD-10 - R05.9) 08/14/2024 Edema (ICD-10 - R60.9) 04/06/2024 Acute non-recurrent sinusitis, unspecified location (ICD-10 - J01.90) 04/03/2024 Nasal congestion (ICD-10 - R09.81) 11/17/2024 Well adult (ICD-10 - Z00.00) 07/15/2024 Encounter for medication review (ICD-10 - Z79.899) Plan Of Treatment Pending Test Test Name Order Date CMP (COMPLETE METABOLIC PANEL) 4 UA (URINALYSIS, COMPLETE) 11/17/2024 CULTURE, STOOL 09/05/2022 HEMOGLOBIN A1C (GLYCO) 06/17/2023 HEMOGLOBIN A1C (GLYCO) 11/17/2024 INSULIN, TOTAL 11/17/2024 LIPID PANEL (CHOL/TRIG/HDL/LDL) 11/18/19 25 LIPID PANEL (CHOL/TRIG/HDL/LDL) 06/17/19 24 CBC WITH DIFF 06/17/2023 PSA, PROSTATE-SPECIFIC ANTIGEN 4 URIC ACID 06/17/2023 XR Chest PA and Lateral (Routine CXR) * 12/24/2022 BNP 07/15/2024 C. DIFF PCR 09/05/2022 CULTURE URINE 11/17/2024 GI PANEL (PCR) 09/05/2022 PROF 14(COMP METB) 07/15/2024 SED RATE WESTERGREN 03/16/2024 SPUTUM GRAM STAIN 12/24/2022 TESTOSTERONE, TOTAL 11/25/2023 TESTOSTERONE, TOTAL 11/21/2023 THYROID PANEL (T4/TSH/FREE T3) THYROID PANEL (T4/TSH/FREE T3) 4 PSA, SCREENING 11/17/2024 CMP (COMP MET TORREZ) w/eGFR CKD-EPI 2024 CBC WITH DIFF 11/17/2024 Insurance Providers Payer Name Payer Address Payer Phone Subscriber Number Group Number Insured Name Patient Relationship to Insured Coverage Start Date Coverage End Date [employer] [address] [address] [place] [address] [id number] Lena Mari Spouse - patient is the spouse of [...] Surgical History Surgery Date(Month/Year) gastric sleeve 05/16 knee surgery 04/19 Lumbar and sacral fusion 12/07/22 Kidney stone 10/2024 ankle surgery 05/2014 Hospitalization History Reason Date(Month/Year) see above
--- OUTSIDE RECORDS SUMMARY | 2024-11-20 12:45 | XMS_ITS | CCD ---
Author Organization [facility]ini[facility] Care Team Providers Care Beverage Steward Name Role Phone Blayne Isabel Primary Care Provider [phone] SUZANNE DAVIES Attending Unavailable BLAYNE ISABEL Primary Care Unavailable ARSENIO BHATTI Referring Unavailable BLAYNE ISABEL Primary Care Unavailable ARSENIO BHATTI Referring Unavailable BLAYNE ISABEL Primary Care Unavailable ROSE SOTELO Attending Unavailable BLAYNE ISABEL Primary Care Unavailable BLAYNE ISABEL Consulting Unavailable Blayne Isabel Primary Care Provider [phone] Blayne Isabel Primary Care Provider Octavio Becker [...] Unava ilable DO Gianni Nelson Attending Provider [phone] Estephanie Lowry Admitting Unavailable Estephanie Lowry Attending [...] Unavailable Blayne Isabel MD Primary Care Provider [phone] [facility] Attending Unavailable QUINCY THOMAS Admitting Unavailable HOY, BLAYNE M Primary Care Unavailable LULU OVIEDO Consulting UnavailBlayne Poole MD Primary Care Provider [phone] HOChad, BLAYNE M Primary Care Unavailable QUINCY, THOMAS Referring Unavailable MAITE GALLOWAY Referring Unavailable HOY, BLAYNE M Primary Care Unavailable HOY, BLAYNE M Primary Care Unavailable MAITE GALLOWAY Referring Unavailable Blayne Isabel MD Primary Care Provider [phone] AHSAN FLYNN Attending Unavailable HOY, BLAYNE M Referring Unavailable HOY, BLAYNE M Primary Care Unavailable AHSAN FLYNN Attending Unavailable HOY, BLAYNE M Referring Unavailable HOY, BLAYNE M Primary Care Unavailable AHSAN FLYNN Attending Unavailable HOY, BLAYNE M Referring Unavailable HOChad, BLAYNE M Primary Care Unavailable Blayne Isabel MD Primary Care Provider [phone] PAYTON HELM Referring Unavailable PAYTON HELM Attending Unavailable PAYTON HELM Attending Unavailable Cecelia MURILLO Attending Unavailable Cecelia MURILLO Attending Unavailable Cecelia Fernandez Referring Unavailable Cecelia Fernandez Attending Unavailable Yarely Canada Attending Unavailable Cecelia MURILLO Attending Unavailable Cecelia MURILLO Attending Unavailable Unavailable Unavailable Unavailable Allergies Allergy Classification Reported Allergen(s) Allergy Type Date of Onset Reaction(s) Facility (17 sources) Povidone-Iodine; Translations: [povidone iodine topical] Drug Allergy 9 [facility] (11 sources) Povidone-Iodine; Translations: [povidone-iodine] Drug Allergy 9 [facility] (9 sources) soap; Translations: [soap] Allergy to substance 9 [facility] (14 sources) Chlorhexidine; Translations: [CHLORHEXIDINE] Drug Allergy 1 [facility] (14 sources) Iodine; Translations: [IODINE] Drug Allergy 9 [facility] Work Phone: (16 sources) Loratadine; Translations: [loratadine] Drug Allergy 2 rash hives [facility] (1 source) Chlorhexidine Drug Allergy [facility] (1 source) Povidone-Iodine; Translations: [Betadine] Drug Allergy [facility] (1 source) Adhesive bandage Drug allergy Eruption of skin (disorder) [facility] Medications Current Medications Medication Drug Class(es) Dates [...] / oxyCODONE hydrochloride 10 mg oral tablet (17 sources) Opioid Agonist Start: 10-10-2022 take 1 [...] carlos th every 4 hours as needed. [id number] 200 actuat albuterol 0.09 mg/actuat metered dose [...] above: Take 1 tablet by juan carlos once daily. cefuroxime 250 mg oral tablet (1 source) Cephalosporin Antibacterial Start: 11-19-2024 cefuroxime 250 mg Tab 250 mg = 1 tab(s), Refills(s) 0 Start Date: 11/19/24 Status: Ordered Repeat number: 1 cholecalciferol 0.125 mg oral tablet (4 sources) Vitamin D take 1 tablet by mouth in the morning cholecalciferol, vitamin D3, 5,000 units tablet Take 1 tablet (5,000 Units total) by mouth in the morning. Active cyclobenzaprine hydrochloride 10 mg oral tablet (9 sources) Muscle Relaxant Start: 05-24-2021 cyclobenzaprine (FLEXERIL) tablet 10 mg Start: 09-29-2018 take 2 tablets by mo ut once daily cyclobenzaprine (FLEXERIL) 10 mg tablet [...] on above: Take 1 capsule by [facility] two times a day. doxazosin 4 [...] Active Start: 01-05-2021 take 1 capsule by [facility] every week vitamin D (ERGOCALCIFEROL) 1.25 MG (34758 UT) CAPS capsule Indications: Vitamin D deficiency [...] 20 mg FeroSul 325 mg oral tablet (6 sources) Start: 03-19-2022 take 1 tablet by mouth twice daily FeroSul 325 mg oral tablet 325 mg = 1 tab(s), Oral, BID, Refills(s) 0 Start Date: 03/19/22 Status: Ordered Repeat number: 1 Start: 03-19-2022 take 1 tablet by [facility] twice daily FeroSul 325 mg oral tablet [...] 10-31-2022 take 1 tablet by juan carlos th every twelve hours FEROSUL 325 mg [...] Repeat number: 1 take 1 tablet by [facility] every twenty-four hours Irbesartan 150 MG 1 [...] daily 0 Active Multivitamin, Therapeutic w/ Minerals (6 sources) Start: 02-23-2020 take 1 tablet by [...] on above: Take 1 capsule by [facility] twice daily. 2 ml ondansetron 2 [...] 1 tablet by juan carlos th every 3 hours as needed for [...] 2023 12:00am take 1 capsule by [facility] once daily in the morning phentermine [...] number: 1 take 2 tablets by [facility] in the morning pioglitazone (ACTOS) 15 [...] 05-24-2021 promethazine ( PHENERGAN) tablet 25 mg rosuvastatin calcium 5 mg oral tablet (1 source) HMG-CoA Reductase Inhibitor Start: 11-19-2024 rosuvastatin 5 mg Tab 5 mg = 1 tab(s), Refills(s) 0 Start Date: 11/19/24 Status: Ordered Repeat number: 1 simvastatin 10 mg oral tablet (20 sources) HMG-CoA Reductase Inhibitor Start: 05-24-2016 End: 11-07-2023 take 10 mg by mouth once daily at bedtime simvastatin 10 mg, Oral, Once a day (at bedtime), Refills(s) 0 Start Date: 05/24/16 Status: Ordered Repeat number: 1 Comment on above: Take 1 tablet by juan carlos once daily. 5 ml sodium chloride 9 [...] above: Take 1 capsule by mo uth once daily. temazepam 15 mg oral capsule [...] Active Testosterone Cypionate 200 mg/mL intramuscular solution (6 sources) Start: 03-19-19 inject 200 mg by [...] 02-15-2020 take 1 tablet by juan carlos th every eight hours Zanaflex 4 mg [...] 04-17-2021 take 1 tablet by juan carlos once daily traZODone (DESYREL) 50 mg tablet [...] Problem Date Documented Date Episodic/Chronic Allergic reactions (6 sources) Environmental allergy 03-30-2017 Episodic Anxiety disorders (20 sources) Anxiety disorder, unspecified; Translations: [Anxiety] Onset: 2 12-07-2022 Chronic Blindness and vision defects (1 source) Unspecified visual loss; Translations: [UNSPECIFIED VISUAL LOSS] Onset: 2 Chronic Calculus of urinary tract (20 sources) History of calculus of kidney; Translations: [Personal history of urinary calculi] Onset: 2 12-28-2020 Episodic Complication of device; implant or graft (15 sources) Retained ureteric stent; Translations: [Infection and [...] W/O BL] Onset: 3 Chronic Esophageal disorders (20 sources) Gastro-esophageal reflux disease without esophagitis; Translations: [Gastroesophageal reflux disease] Onset: 2 12-07-2022 Chronic Essential hypertension (20 sources) Essential hypertension; Translations: [Hypertensive disorder] Onset: 0 02-02-2020 Chronic Fluid and electrolyte disorders (6 sources) Hyperkalemia; Translations: [HYPERKALEMIA] Onset: 2 Resolved: 2 Episodic Genitourinary symptoms and ill-defined conditions (18 sources) Dysuria; Translations: [Dysuria] Onset: 2 Episodic Hyperplasia of prostate (20 sources) Benign prostatic hyperplasia; Translations: [Benign prostatic hyperplasia without lower urinary tract symptoms] Onset: 3 3 Chronic Hypertension with complications and secondary hypertension [...] Chronic Other diseases of kidney and ureters (6 sources) Renal mass 03-19-2022 Chronic Other diseases of kidney and ureters (4 sources) Other specified disorders of kidney and ureter; Translations: [OTHER SPEC DISORDERS KIDNEY URETER] Onset: 3 Chronic Other diseases of kidney and ureters (2 sources) Acquired renal cyst without neoplastic change; Translations: [Cyst of kidney, acquired] Onset: 5 Episodic Other diseases of kidney and ureters (2 sources) Cyst of kidney 08-07-2024 Episodic Other endocrine disorders (5 sources) Male hypogonadism 10-10-2022 Chronic Other gastrointestinal disorders (2 sources) History of sleeve gastrectomy; Translations: [Bariatric surgery status] Onset: 2 Episodic Other gastrointestinal disorders (11 sources) Altered bowel function; Translations: [Change in bowel habit] Onset: 3 Episodic Other gastrointestinal disorders (5 sources) Acute diarrhea 10-10-2022 Episodic Other hereditary [...] Onset: 2 Chronic Other nervous system disorders (5 sources) Neurogenic claudication 10-10-2022 Episodic Other nervous [...] conditions (not mental disorders or infectious disease) (12 sources) Encounter for screening for malignant neoplasm of prostate; Translations: [Other specified abnormal findings of blood chemistry] Onset: 2 Episodic Pulmonary heart disease (5 sources) 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 Residual codes; unclassified (11 sources) Sleep apnea 05-25-2016 Chronic Comment on [...] Onset: 0 02-02-2020 Episodic Residual codes; unclassified (6 sources) Insomnia 05-24-2016 Episodic Residual codes; unclassified [...] [LOW BACK PAIN, UNSPECIFIED] Onset: 2 Unclassified (5 sources) Patient encounter status 02-04-2023 Past or [...] 2 Episodic Other aftercare (1 source) Other senior care (current) drug therapy; Translations: [OTH HEALTH AND SAFETY COORDINATOR CURRENT DRUG THERAPY] Onset: 2 Episodic Other [...] Reference Range Facility Ambulatory Visit Summaryon 0 11-19-2024 Ambulatory Visit Summary Ambulatory Visit Summary SUKHDEEP SIMENTAL :1965 Visit Date:11/19/2024 Ambulatory Visit Instructions Your Diagnosis Kidney stone BPH with urinary obstruction Screening for prostate cancer Renal cyst Your Care Team Attending Physician - MANOLO Canada APRN, Yarely Mcgregor Primary Care Physician - Blayne Isabel MD This Is Your Medications List Contact prescribing physician if questions or concerns acetaminophen-oxycodon e (acetaminophen-oxycodo ne 325 mg-10 mg oral tablet) bumetanide (bumetanide 1 mg Tab) cefuroxime (cefuroxime 250 mg Tab) ferrous sulfate (FeroSul 325 mg oral tablet) irbesartan (Avapro 300 mg Tab) metoclopramide (metoclopramide 10 mg Tab) multivitamin with minerals (Multivitamin, Therapeutic w/ Minerals) pioglitazone (pioglitazone 30 mg Tab) rosuvastatin (rosuvastatin 5 mg Tab) tamsulosin (tamsulosin 0.4 mg Cap) testosterone (Testosterone Cypionate 200 mg/mL intramuscular solution) tizanidine (Zanaflex 4 mg Tab) trazodone (traZODONE 150 mg Tab) Procedures Performed Cystoscopy (11/13/2024), Arthroplasty of knee (2022), Fusion of lumbar [...] (Temporal Artery) 37 ???C Heart Rate (Peripheral) 80 Respiratory Rate 16 Blood Pressure 137/82 Height 175 cm Height 69 in Weight 126.6 kg Weight 279.105 lb BMI 41.34 What to do next Scheduled Follow-Up Appointments Saturday2025 10:45 AM EDT With: Cecelia MURILLO MD Where: [facility] [address] [address]- You Need to Schedule the Following Appointments Follow Up with Cecelia MURILLO MD, URL When: Comments: as scheduled Where: [facility] [place] [address]- Medications What How Much When Instructions Unchanged acetaminophen-oxycodon e (acetaminophen-oxycodo ne 325 mg-10 mg oral tablet) 1 Tablets By Mouth Every 6 hours as needed for as needed for pain Contact prescribing physician if questions or concerns Unchanged bumetanide (bumetanide 1 mg Tab) 1 Tablets By Mouth Every day Contact prescribing physician if questions or concerns Unchanged cefuroxime (cefuroxime 250 mg Tab) 1 Tablets Contact prescribing physician if questions or concerns [...] prescribing physician if questions or concerns Unchanged rosuvastatin (rosuvastatin 5 mg Tab) 1 Tablets Contact prescribing physician if questions or concerns [...] prescribing physician if questions or concerns Allergies Adhesive Bandage (Rash) Betadine (Rash) loratadine (rash hives) Problems Ongoing - Any problem that you are currently receiving treatment for. Acute diarrhea Anxiety Benign essential tremor BMI 40.0-44.9, adult Bowel habit changes BPH with urinary obstruction Change in bowel habits Degeneration of lumbar intervertebral disc Gastroesophageal reflux disease Gross hematuria Hyperlipidemia Hypertensive disorder Kidney stone Lumbosacral radiculopathy Male hypogonadism Morbid obesity Morbid obesity with BMI of 40.0-44.9, adult Neurogenic claudication Prostate cancer screening Pulmonary embolism Renal cyst Renal mass Retained ureteral stent Saddle embolus of pulmonary artery Screening for prostate cancer Sleep apnea (more content not included)... Normal [facility] Urology Office/Clinic Noteon 11-19-2024 Urology Office/Clinic Note Urology Office/Clinic Note Chief Complaint right string stent removal HPI Staff 59 yr old male here for string stent removal. PO cystoscopy, right ureteroscopy done 11/13/24 Previous dx: renal mass, kidney stone, prostate cancer screening. S/P L ESWL/L stent removal/L ureteroscopy/holmium laser litho of large left ureteral calculus/stone basket extraction done 07/13/21 Flomax qd History of Present Illness I have reviewed and verified the staff HPI to be accurate for this encounter. Review of Systems PHQ Score Initial Depression Screen Score: 0 SCORE Physical Exam Vitals & Measurements T: 37 ???C(Temporal Artery) HR: 80(Peripheral) RR: 16 BP: 137/82 HT: 69 in HT: 175 cm WT: 279.105 lb WT: 126.6 kg BMI: 41.34 General: Well developed, well nourished, in no acute distress. Assessment/Plan PRW pt 1. Kidney stone (N20.0: Calculus of kidney) Largest [...] present the RLP up to 8 mm. Previously noted to pass 10-12 small stones every couple mos. Was recommended to have right sided ESWL at that time, but pt opted against. s/p cysto/right URS/laser litho, stent placement of 1.2 cm right renal pelvic calculus and 7 mm right upper pole stone by Dr Fernandez 11/13/24 Pt presents today w/ stent to string, prefers to have pulled in office. Does report associated frequency, urgency, bladder spasms but he knows this is stent related. Denies any issues otherwise. String stent removed today IO w/o complications. Increase fluid intake, avoid bladder irritants ER for fever, NV, severe flank pain, inability to urinate -f/u scheduled July w/ KUB, metabolic workup 2. BPH with urinary obstruction (N40.1: Benign prostatic hyperplasia with lower urinary tract symptoms) on tamsulosin 0.4 mg QD through PCP -not addressed today 3. Screening for prostate cancer (Z12.5: Encounter for screening for malignant neoplasm of prostate) PSA: 06/21/23 - 1.11 -not addressed today 4. Renal cyst (N28.1: Cyst of kidney, acquired) Seen in consult on 06/29/21 at [facility]. 11/14/21 - BUN 19.0. Crea 1.62. [...] simple cyst. No further imaging is warranted. Follow-up With When Contact Information Cecelia MURILLO MD, URL [address] [place] [address]- Additional Instructions: as scheduled Patient Education Kidney Stones, [id number] Problem List/Past Medical History Ongoing Acute diarrhea Anxiety Benign essential tremor BMI 40.0-44.9, adult Bowel habit changes BPH with urinary obstruction Change in bowel habits Degeneration of lumbar intervertebral disc Gastroesophageal reflux disease Gross hematuria Hyperlipidemia Hypertensive disorder Kidney stone Lumbosacral radiculopathy Male hypogonadism Morbid obesity Morbid obesity with BMI of 40.0-44.9, adult Neurogenic claudication Prostate cancer screening Pulmonary embolism Renal cyst Renal mass Retained ureteral stent Saddle embolus of pulmonary artery Screening for prostate cancer Sleep apnea Spinal stenosis of lumbosacral region Type 2 diabetes mellitus Historical Chronic kidney disease stage 4 Chronic kidney disease stage 4 Procedure/Surgical History Cystoscopy (11/13/2024), Arthroplasty of knee (2022), Fusion of lumbar spine (2022), Cystoscopic removal of ureteric stent (0 (more content not included)... Normal [facility] Comment on above: Result Comment: Elec tronically Signed By: MANOLO Canada APRN, [facility] X\.br\Date and Time Signed: 11/19/24 11:41 EDT Ambulatory Visit Summaryon 0 08-07-2024 Ambulatory Visit [...] Cecelia MURILLO MD Primary Care Physician - Blayne Isabel MD [...] Cecelia MURILLO MD Where: [facility] [address] [address]- You Need to Schedule the Following Appointments Follow Up with Kaykay MURILLO MDrick R, URL When: Where: [address] [place], [place] [id number]- Medications What How Much When Instructions Unchanged [...] urinary obstructio (more content not included)... Normal [facility] Urology Office/Clinic Noteon 08-07-2024 Urology Office/Clinic Note Urology Office/Clinic Note Chief Complaint 18 month f/u with SÁNCHEZ and KUB HPI Staff 58 year old male patient here for follow up with KUB/SÁNCHEZ. KUB/SÁNCHEZ done 07/16/24 @ [facility]. Previous dx: renal mass, kidney stone, [...] acquired) Seen in consult on 06/29/21 at [facility]. 11/14/21 - BUN 19.0. Crea 1.62. [...] Information LIDIA JACOBS, Cecelia Jj, URL [address] [place] [id number]- Additional Instructions: 1 year w/ KUB and PSA Patient Education Dietary Guidelines to Help Prevent Kidney Stones I, Jacqueline Calero, personally scribed for Dr. Murillo on 08/07/2024 11:53:15. . Documentation recorded by the scribeJacqueline, accurately reflects the services(s) I performed and decisions made by me. Authenticated by Dr. Murillo on 08/07/2024 12:00:12. Problem List/Past Medical History Ongoing Acute diarrhea Anxiety Benign essential tremor BMI 40.0- (more content not included)... Normal [facility] Comment on above: Result Comment: Elec tronically Signed By: Cecelia MURILLO MD\.br\Date and Time Signed: 08/07/24 12:00 EDT\.br\Electronically Co-Signed By: Jacqueline Calero\.br\Date and Time Co-Signed: 08/07/24 11:53 EDT\.br\Electronically Co-Signed By: Jacqueline Calero\.br\Date and Time Co-Signed: 08/07/24 11:56 EDT\.br\Electronically Co-Signed By: Jacqueline Calero\.br\Date and Time Co-Signed: 08/07/24 11:57 EDT [facility] Patient Letter [facility] June 22, 2024 SUKHDEEP SIMENTAL [address] [place] [address] : 1965 Dear Mr. Sukhdeep Simental, You [...] any future cancellations. Sincerely, [facility] [place] [id number] [phone] Normal [facility] Follow-Upon 06-17-2024 Follow-Up [id number] Sukhdeep Simental F 1965 M Date Provider Department Center 06/17/2024 PAYTON GRIFFITH [facility] Family History Problem Relation Age of Onset Dementia Mother Esophageal cancer Father Alcohol abuse Father Family Status - Relation Status Age at Mother Alive Father Level of Service:[id number] [place] OFFICE/OUTPATIENT ESTABLISHED SF MDM 10 MIN Normal [facility] 36on 05-18-2024 36 Will need to see the patient as soon as possible repeat x-rays and blood test to further evaluate as he has had previous infections and has high risk for recurrent infections and 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 PT WILL COME IN TODAY Normal [facility] BASIC METABOLIC PANELon -2 Anion gap [Moles/Vol] 12 mmol/L Normal - [facility] Comment on above: Performed By: #### L [id number] #### [facility] ([facility]) [address] [place] [address] Calcium [Mass/Vol] 9.9 mg/dL Normal 8.6-10.3 [facility] Comment on above: Performed By: #### L [id number] #### [facility] [address] [place] [address] Chloride [Moles/Vol] 105 mmol/L Normal 98-107 [facility] Comment on above: Performed By: #### L [id number] #### [facility] ([facility]) [address] [place] [address] CO2 [Moles/Vol] 27 mmol/L Normal 21-31 [facility] Comment on above: Performed By: #### L [id number] #### [facility] [address] [place] [address] Creatinine [Mass/Vol] 1.42 mg/dL High 0.70-1.30 [facility] Comment on above: Performed By: #### L [id number] #### [facility] ([facility]) [address] [place] [address] GLOMERULAR FILTRATION RATE ML/MIN/1.73 SQ M.PREDICTED 56.6 mL/min/1.73m*2 Low >60.0 [facility] Comment on above: Result Comment: The Select [...] individuals. Performed By: #### L [id number] #### [facility] [address] [place] [address] Glucose [Mass/Vol] 102 mg/dL High 70-100 [facility] Comment on above: Performed By: #### L [id number] #### [facility] [address] [place] [address] Potassium [Moles/Vol] 4.4 mmol/L Normal 3.5-5.1 [facility] Comment on above: Performed By: #### L [id number] #### [facility] ([facility]) [address] [place] [address] Sodium [Moles/Vol] 140 mmol/L Normal 136-145 [facility] Comment on above: Performed By: #### L [id number] #### [facility] ([facility]) [address] [place] [address] Urea nitrogen [Mass/Vol] 23 mg/dL Normal 7-25 [facility] Comment on above: Performed By: #### L [id number] #### [facility] ([facility]) [address] [place] [address] UREA NITROGEN/CREATININE (MASS RATIO) IN SER/PLAS 16.2 Normal [facility] Comment on above: Performed By: #### L [id number] #### [facility] ([facility]) [address] [place] [address] C-REACTIVE PROTEINon 025 C REACTIVE PROTEIN (MG/L) IN SER/PLAS <5.4 Normal <=5.0 [facility] Comment on above: Result Comment: Test ing performed using a new methodology, turbidimetry. Normal ranges have been updated. Old normal range was <8 mg/L. Performed By: #### L [id number] #### [facility] ([facility]) [address] [place] [address] CBC WITH AUTO DIFFERENTIALon 05-18-2024 Basophils (Bld) [#/Vol] 0.06 10*3/uL Normal 0.00-0.20 [facility] Comment on above: Performed By: #### L [id number] #### [facility] ([facility]) [address] [place] [address] Basophils/100 WBC (Bld) 0.7 % Normal 0.0-1.0 [facility] Comment on above: Performed By: #### L [id number] #### [facility] ([facility]) [address] [place] [address] Eosinophils (Bld) [#/Vol] 0.15 10*3/uL Normal 0.00-0.50 [facility] Comment on above: Performed By: #### L [id number] #### [facility] ([facility]) [address] [place] [address] Eosinophils/100 WBC (Bld) 1.8 % Normal 0.0-6.0 [facility] Comment on above: Performed By: #### L [id number] #### [facility] ([facility]) [address] [place] [address] Erythrocyte distribution width (RBC) [Ratio] 11.9 % Normal 11.5-15.0 [facility] Comment on above: Performed By: #### L [id number] #### [facility] ([facility]) [address] [place] [address] ERYTHROCYTE MEAN CORPUSCULAR HEMOGLOBIN CONCENTRATION (G/DL) BY AUTOMATED 34.5 g/dL Normal 32.0-35.0 [facility] Comment on above: Performed By: #### L [id number] #### [facility] C[facility]) [address] [place] [address] Hematocrit (Bld) [Volume fraction] 47.8 % Normal 39.0-50.0 [facility] Comment on above: Performed By: #### L [id number] #### [facility] ([facility]) [address] [place] [address] Hemoglobin (Bld) [Mass/Vol] 16.5 g/dL Normal 13.0-17.0 [facility] [place] Comment on above: Performed By: #### L [id number] #### [facility] ([facility]) [address] [place] [address] Immature granulocytes (Bld) [#/Vol] 0.03 10*3/uL Normal 0.00-0.20 [facility] [place] Comment on above: Performed By: #### L [id number] #### [facility] ([facility]) [address] [place] [address] Immature granulocytes/100 WBC (Bld) 0.4 % Normal 0.0-1.0 [facility] [place] Comment on above: Performed By: #### L [id number] #### [facility] ([facility]) [address] [place] [address] Lymphocytes (Bld) [#/Vol] 1.80 10*3/uL Normal 1.20-4.00 [facility] [place] Comment on above: Performed By: #### L [id number] #### [facility] ([facility]) [address] [place] [address] Lymphocytes/100 WBC (Bld) 21.8 % Normal 20.0-45.0 [facility] [place] Comment on above: Performed By: #### L [id number] #### [facility] ([facility]) [address] [place] [address] MCH (RBC) [Entitic mass] 31.5 pg Normal 27.0-33.0 [facility] [place] Comment on above: Performed By: #### L [id number] #### [facility] ([facility]) [address] [place] [address] MCV (RBC) [Entitic vol] 91.4 fL Normal 82.0-98.0 [facility] Comment on above: Performed By: #### L [id number] #### [facility] ([facility]) [address] [place] [address] Monocytes (Bld) [#/Vol] 0.66 10*3/uL Normal 0.10-1.00 [facility] [place] Comment on above: Performed By: #### L [id number] #### [facility] ([facility]) [address] [place] [address] Monocytes/100 WBC (Bld) 8.0 % Normal 5.0-12.0 [facility] [place] Comment on above: Performed By: #### L [id number] #### [facility] ([facility]) [address] [place] [address] Neutrophils (Bld) [#/Vol] 5.56 10*3/uL Normal 1.60-7.60 [facility] [place] Comment on above: Performed By: #### L [id number] #### [facility] ([facility]) [address] [place] [address] Neutrophils/100 WBC (Bld) 67.3 % Normal 40.0-72.0 [facility] [place] Comment on above: Performed By: #### L [id number] #### [facility] ([facility]) [address] [place] [address] NRBC (PER 100 WBCS) BY AUTOMATED COUNT 0.0 % Normal 0 [facility] [place] Comment on above: Performed By: #### L [id number] #### [facility] ([facility]) [address] [place] [address] PLATELETS (10*3/UL) IN BLOOD AUTOMATED COUNT 247 10*3/uL Normal 150-400 [facility] [place] Comment on above: Performed By: #### L [id number] #### [facility] ([facility]) [address] [place] [address] RBC (Bld) [#/Vol] 5.23 10*6/uL Normal 4.20-5.70 [facility] Comment on above: Performed By: #### L [id number] #### [facility] ([facility]) [address] [place] [address] WBC (Bld) [#/Vol] 8.26 10*3/uL Normal 4.00-10.60 [facility] Comment on above: Performed By: #### L [id number] #### [facility] ([facility]) [address] [place] [address] Follow-Upon 05-18-2024 Follow-Up [id number] Sukhdeep Simental 1965 M Date Provider Department Center 05/18/2024 [facility]FF[facility] MPORTHO Family History Problem Relation Age of Onset Dementia Mother Esophageal cancer Father Alcohol abuse Father Family Status - Relation Status Age at Mother Alive Father Level of Service:66418 [place] OFFICE/OUTPATIENT ESTABLISHED MOD MDM 30 MIN () Reason for Visit and Comments: Pain [136] - Swelling starts 2 months ago, started swimming about a month ago and it only made his knee worse Edema [[id number]] - Swelling starts 2 months ago, started swimming about a month ago and it only made his knee worse Normal [facility] Labon 05-18-2024 Lab [id number] Sukhdeep Simental 1965 M Date Provider Department Center 05/18/20244-[facility] LAB [...] #### [facility] ([facility]) [address] [place] [address] 36on 05-15-2024 36 Patient feels like h [...] distribution width (RBC) [Ratio] 11.5 % 11.0-15.0 [facility] Estimated glomerular filtrat ion rate (GFR) non- Americanon 10-29-2023 GFR/1.73 sq M.predicted among non-blacks MDRD (S/P/Bld) [Vol rate/Area] 51 mL/min/{1.73_m2} Low >=60 [facility] Hematocrit Auto (Bld) [Volum e fraction]on 10-29-2023 Hematocrit (Bld) [Volume fraction] 47.7 % 42.0-54.0 [facility] Hemoglobin [Mass/volume] in Bloodon 10-29-2023 Hemoglobin (Bld) [Mass/Vol] 16.8 g/dL 14.0-18.0 [facility] Laboratory - Chemistry and C hemistry - challengeon 10-29-2023 Albumin [Mass/Vol] 3.7 g/dL 3.4-5.0 [facility] Calcium [Mass/Vol] 9.0 mg/dL 8.5-10.1 [facility] Chloride [Moles/Vol] 103 mmol/L 98-107 [facility] CO2 [Moles/Vol] 26.8 mmol/L 21.0-32.0 [facility] Creatinine [Mass/Vol] 1.41 mg/dL High 0.70-1.30 [facility] GFR/1.73 sq M.predicted MDRD (S/P/Bld) [Vol rate/Area] mL/min/{1.73_m2} >=60 [facility] Glucose [Mass/Vol] 167 mg/dL High 74-106 [facility] Magnesium [Mass/Vol] 1.9 mg/dL 1.8-2.4 [facility] Potassium [Moles/Vol] 3.9 mmol/L 3.5-5.1 [facility] Sodium [Moles/Vol] 141 mmol/L 136-145 [facility] Urate [Mass/Vol] 7.9 mg/dL High 3.5-7.2 [facility] Urea nitrogen [Mass/Vol] 26.0 mg/dL High 7.0-18.0 [facility] Urea nitrogen/Creatinine [Mass ratio] 18.4 mg/mg [facility] Bilirubin Ql (U) Negative NEGATIVE [facility] Glucose (U) [Mass/Vol] Negative NEGATIVE [facility] Ketones Ql (U) Negative NEGATIVE [facility] pH (U) 6.0 [pH] 5.0-9.0 [facility] Specific gravity (U) [Rel density] 1.015 1.005-1.025 [facility] Urobilinogen Qn (U) 0.2 {Dahiana'U}/dL 0.2-1.0 [facility] Laboratory - Specimen inform ationon 10-29-2023 Appearance (U) CLEAR CLEAR [facility] Color (U) LT. YELLOW YELLOW [facility] - Urinalysison Hyaline casts LM Ql (Urine sed) RARE [facility] Leukocyte esterase Test strip Ql (U) Negative NEGATIVE [facility] Mucus Ql (Urine sed) NONE SEEN NONE SEEN [facility] Nitrite Ql (U) Negative NEGATIVE [facility] Protein Ql (U) Negative NEG/TRACE [facility] Leukocytes [#/volume] correc romaine for nucleated erythrocytes in Blood by Automated counon 10-29-2023 WBC corrected for nucl RBC Auto (Bld) [#/Vol] 6.9 10 3/uL 4.0-11.0 [facility] MCH Auto (RBC) [Entitic mass ]on 10-29-2023 MCH (RBC) [Entitic mass] 32.2 pg 25.9-34.0 [facility] MCHC Auto (RBC) [Mass/Vol]on 10-29-2023 MCHC (RBC) [Mass/Vol] 35.2 g/dL 29.9-35.2 [facility] MCV Auto (RBC) [Entitic vol] on 10-29-2023 MCV (RBC) [Entitic vol] 91.6 fL 80.0-94.0 [facility] No Panel Informationon 10-28 25-Hydroxy Vitamin D Total 40.8 ng/mL [facility] Comment on above: <20 ng/mL Vit D defi cient20-<30 ng/mL Vit D utrhbsbecuiw94-113 ng/mL Vit D sufficient>100 ng/mL Potential Toxicity Parathyroid Hormone (Intact) 91 pg/mL Abnormal 15-65 [facility] Comment on above: Performed at: CB - [facility] [employer] [address] [id number] Director: Logan Martinez PhD, Phone: [phone] Phosphorus Level 2.3 mg/dL Low 2.6-4.7 [facility] Urine Bacteria NONE SEEN #/HPF NONE SEEN [facility] Urine Occult Blood Negative NEGATIVE [facility] Urine Other Casts SEEN #/LPF Abnormal NONE SEEN [facility] Urine Random Creatinine 15.18 mg/dL Low 20.00-300.00 [facility] Urine Random Total Protein <6.0 mg/dL <=11.9 [facility] Urine RBC NONE SEEN #/HPF 0-2 [facility] Urine Squamous Epithelial Cells FEW #/LPF Abnormal NONE/RARE [facility] Urine WBC NONE SEEN #/HPF NONE SEEN [facility] Platelet mean volume Auto (B ld) [Entitic vol]on 10-29-2023 Platelet mean volume (Bld) [Entitic vol] 8.9 fL Low 9.5-13.5 [facility] Platelets Auto (Bld) [#/Vol] on 10-29-2023 Platelets (Bld) [#/Vol] 236 10 3/uL 150-450 [facility] RBC Auto (Bld) [#/Vol]on RBC (Bld) [#/Vol] 5.21 10 6/uL 4.70-6.10 [facility] Serum or plasma anion gap de terminationon 10-29-2023 Anion gap [Moles/Vol] 15.1 mmol/L [facility] CNPNon 10-07-2023 CNPN Telephone (NEADFV) SUKHDEEP SIMENTAL ([id number]) 1965 M Date Time Provider Department 10/07/23 THOMAS MATHEW NEFV During your visit today, we recorded the [...] Encounter Status:Closed by ARIANNA [facility]AMMAD [facility] SU[facility] SIM[facility]AL ([id number]) 1965 M Date Time Provider Department 10/04/23 THOMAS MATHEW [facility] During your visit today, we recorded the [...] Status:Closed by JUAN PABLO NOVA on 10/04/23 [facility] 07-30-2023 CNPN Telephone (NEADFV) SUKHDEEP SIMENTAL ([id number]) 1965 M Date Time Provider Department 07/30/23 [facility] During your visit today, we recorded the following information about you: Arianna Little 07/30/2023 11:51 AM Signed Pt phoned regarding upcoming visit 10/06 [facility] appt. Pt unable to manage virtual visit asking for telephone visit. Pt asking how far in advance to do X-Ray. Pt will have X-Ray done locally at [facility]. Please call and advise Pt phone # [phone] Ekaterina Rondon 07/30/2023 1:07 PM Signed Have sent XR Lumbar order to [facility] fax # [phone] as requested from patient. Riddhi Goss APRN.[facility] 07/30/2023 3:25 PM Signed Called Sukhdeep, [...] Encounter Status:Closed by RIDDHI GOSS on 07/30/23 [facility] [place] 07-23-2023 CNPN Telephone (NIQ) SUKHDEEP SIMENTAL ([id number]) 1965 M Date Time Provider Department 07/23/23 THOMAS MATHEW During your visit today, we recorded the following information about you: Brenda Alex 07/23/2023 9:38 AM Signed Received request from [employer] needing more info, in [employer] for review. Juan Pablo Nova RN 07/23/2023 [...] Status:Closed by JUAN PABLO NOVA on 07/26/23 [facility] [place] 04-16-2023 CNPN Telephone (NIQ) SUKHDEEP SIMENTAL ([id number]) 1965 M Date Time Provider Department 04/16/23 THOMSA MATHEW During your visit today, we recorded the following information about you: Moriah Ferguson 04/16/2023 1:27 PM Signed Received imaging disc by mail from [facility]. Disc contains CT Lumbar spine done [...] Encounter Status:Closed by MORIAH FERGUSON on 06/06/23 [facility] [place] 04-10-2023 HARIKA Telephone (NIQ) SUKHDEEP SIMENTAL ([id number]) 1965 M Date Time Provider Department 04/10/23 [...] Status:Closed by JUAN PABLO NOVA on 04/18/23 [facility] [place] 04-09-2023 [facility] Telephone (NIQ) SUKHDEEP SIMENTAL ([id number]) 1965 M Date Time Provider Department 04/09/23 THOMAS MATHEW During your visit today, we recorded the following information about you: Brenda Alex 04/09/2023 10:[address] Lumbar Spine Report from [facility], in epic to review. Brittany Rubio [...] by ROBSON LAZO on 04/09/23 [facility] Telephone (NIQ) SUKHDEEP SIMENTAL ([id number]) 1965 M Date Time Provider Department 02/11/23 THOMAS MATHEW During your visit today, we recorded the following information about you: Moriah Ferguson 02/11/2023 1:36 PM Signed Received fax from [facility] [employer] requesting office notes, C-9, and [employer] 14. See fax scanned in patient's chart. Juan Pablo Nova RN 02/13/2023 3:14 PM Signed Information faxed to number requested. Faxed verification received. Robson De Jesus 03/06/2023 3:20 PM Signed Received updated notes from [facility] dated 03/05/23. Scanned into [employer]. 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 [...] Encounter Status:Closed by XI SCHRADER on 12/21/22 [facility] [place] 12-18-2022 CNPN Telephone (PODCCP) SUKHDEEP SIMENTAL ([id number]) 1965 [place] Date Time Provider Department 12/18/22 BLAYNE ISABEL PODCCP During your visit today, we recorded the following information about you: Amaury Carreon 12/18/2022 1:52 PM Signed PATIENT INFORMATION Record ID: [id number] Patient Name: [facility]: [facility]: Neurological [facility] Attending: Thomas Mathew Center: [facility] INSTRUCTIONS SN to remind patient of next upcoming appointment date, time, location SN TRANSFER TO [facility] SURVEY INFORMATION Medical/Nurse Emergency Department Coordinator: Amaury Calderón 1. Your discharge instructions are [...] Reason for Visit: Follow Up Phone Call [3420] Cmt: All Clear Prescriptions as of 12/18/2022 [...] Encounter Status:Closed by AMAURY CARREON on 12/18/22 [facility] [place] 12-14-2022 [facility] Telephone (NIQ) SUKHDEEP SIMENTAL ([id number]) 1965 M Date Time Provider Department 12/14/22 THOMAS MATHEW [facility] During your visit today, we [...] via voice mail, as requested. Scanned into [employer]. Allergies As of Date: 12/14/2022 (No Known Allergies) Date Reviewed: 12/10/2022 Reviewed by: Yoli Guerin, RN - Fully Assessed Reason for Visit: FMLA Paperwork [4186] Prescriptions as of 12/17/2022 - docusate sodium [...] Status:Closed by ABBY HERNANDEZ on 12/17/22 Normal [facility] Basic metabolic 2000 panelon 12-11-2022 Anion gap [Moles/Vol] 8 mmol/L Low 9-18 [facility] Comment on above: Order Comment: Speci men Type: BLOOD SPECIMEN Ordering Facility: [facility] Address: [address] [place] [address] Performed By: #### 2 4321-2 #### [facility] CLIA [id number] [address] [place] [address] [place] Calcium [Mass/Vol] 8.7 mg/dL Normal 8.5-10.2 [facility] Comment on above: Order Comment: Speci men Type: BLOOD SPECIMEN Ordering Facility: [facility] Address: [address] [place] [address] Performed By: #### 2 4321-2 #### [facility] CLIA [id number] [address] [place] [address] [place] Chloride [Moles/Vol] 106 mmol/L High 97-105 [facility] Comment on above: Order Comment: Speci men Type: BLOOD SPECIMEN Ordering Facility: [facility] Address: [address] [place] [address] Performed By: #### 2 4321-2 #### [facility] CLIA [id number] [address] [place], [place] [address] [place] CO2 [Moles/Vol] 29 mmol/L Normal 22-30 [facility] Comment on above: Order Comment: Speci men Type: BLOOD SPECIMEN Ordering Facility: [facility] Address: [address] [place] [address] Performed By: #### 2 4321-2 #### [facility] CLIA [id number] [address] [place] [address] [place] Creatinine [Mass/Vol] 1.17 mg/dL Normal 0.73-1.22 [facility] Comment on above: Order Comment: Speci men Type: BLOOD SPECIMEN Ordering Facility: [facility] Address: [address] [place] [address] Performed By: #### 2 4321-2 #### [facility] CLIA [id number] [address] [place], [place] [address] [place] Creatinine and Glomerular filtration rate.predicted panel (S/P/Bld) 72 mL/min/1.73m??? Normal >=60 [facility] Comment on above: Order Comment: Shahrzad dumont Type: BLOOD SPECIMEN Ordering Facility: [facility] Address: [place] [address] Result Comment: Leah mated Glomerular Filtration Rate [...] GFR. Performed By: #### 2 4321-2 #### [facility] IA [id number] [address] [place] [address] [place] Glucose [Mass/Vol] 98 mg/dL Normal 74-99 [facility] Comment on above: Order Comment: Shahrzad dumont Type: BLOOD SPECIMEN Ordering Facility: [facility] Address: [place] [address] Result Comment: The [place] Diabetes Association (ADA) provides guidance for cutoff [...] Standards of Medical Care in Diabetes 2016, [place] [employer]. Diabetes Care. 2016.39(Suppl 1). Performed By: #### 2 4321-2 #### [facility] [place] [id number] [address] [place], [place] [address] [place] Potassium [Moles/Vol] 4.8 mmol/L Normal 3.7-5.1 [facility] Comment on above: Order Comment: Speci men Type: BLOOD SPECIMEN Ordering Facility: [facility] Address: [address] [place] [address] Performed By: #### 2 4321-2 #### [facility] CLIA [id number] [address] [place] [address] [place] Sodium [Moles/Vol] 143 mmol/L Normal 136-144 [facility] Comment on above: Order Comment: Speci men Type: BLOOD SPECIMEN Ordering Facility: [facility] Address: [address] [place] [address] Performed By: #### 2 4321-2 #### [facility] CLIA [id number] [address] [place] [address] [place] Urea nitrogen [Mass/Vol] 13 mg/dL Normal 9-24 [facility] Comment on above: Order Comment: Speci men Type: BLOOD SPECIMEN Ordering Facility: [facility] Address: [address] [place] [address] Performed By: #### 2 4321-2 #### [facility] CLIA [id number] [address] [place] [address] OF ARELY CASE MANAGEMon 12-11-2022 CASE MANAGEM HNO ID: [id number] Author: Gloria Toro RN Service: ? Author Type: Registered Nurse Type: Care Mgt Progress Note Filed: 12/11/2022 3:26 PM Note Text: CARE MANAGEMENT PROGRESS NOTE SERVICE DATE: 12/11/2022 SERVICE TIME: 3:26 pm LOS: 4 days No further skilled PT / OT needed [place]. SIGNATURE: Gloria Toro RN PATIENT NAME: Sukhdeep Simental DATE: December 11, 2022 TIME: 3:25 PM PAGER/CONTACT #: [phone] Normal [facility] CBC panel Auto (Bld)on 12-11 Erythrocyte distribution width (RBC) [Ratio] 12.5 % Normal 11.5-15.0 [facility] Comment on above: Order Comment: Speci men Type: BLOOD SPECIMEN Ordering Facility: [facility] Address: [address] [place] [address] Performed By: #### 5 8410-2 #### [facility] CLIA [id number] [address] [place] [address] [place] Hematocrit (Bld) [Volume fraction] 34.6 % Low 39.0-51.0 [facility] Comment on above: Order Comment: Speci men Type: BLOOD SPECIMEN Ordering Facility: [facility] Address: [address] [place] [address] Performed By: #### 5 8410-2 #### [facility] IA [id number] [address] [place] [address] [place] Hemoglobin (Bld) [Mass/Vol] 11.7 g/dL Low 13.0-17.0 [facility] Comment on above: Order Comment: Speci men Type: BLOOD SPECIMEN Ordering Facility: [facility] Address: [address] [place] [address] Performed By: #### 5 8410-2 #### [facility] IA [id number] [address] [place] [address] [place] MCH (RBC) [Entitic mass] 32.0 pg Normal 26.0-34.0 [facility] Comment on above: Order Comment: Speci men Type: BLOOD SPECIMEN Ordering Facility: [facility] Address: [address] [place] [address] Performed By: #### 5 8410-2 #### [facility] IA [id number] [address] [place] [address] [place] MCHC (RBC) [Mass/Vol] 33.8 g/dL Normal 30.5-36.0 [facility] Comment on above: Order Comment: Speci men Type: BLOOD SPECIMEN Ordering Facility: [facility] Address: [address] [place] [address] Performed By: #### 5 8410-2 #### [facility] CLIA [id number] [address] [place] [address] [place] MCV (RBC) [Entitic vol] 94.5 fL Normal 80.0-100.0 [facility] Comment on above: Order Comment: Speci men Type: BLOOD SPECIMEN Ordering Facility: [facility] Address: [address] [place] [address] Performed By: #### 5 8410-2 #### [facility] CLIA [id number] [address] [place] [address] [place] Nucleated RBC (Bld) [#/Vol] 10*3/uL Normal <0.01 [facility] Comment on above: Order Comment: Speci men Type: BLOOD SPECIMEN Ordering Facility: [facility] Address: [address] [place] [address] Performed By: #### 5 8410-2 #### [facility] CLIA [id number] [address] [place] [address] [place] Platelet mean volume (Bld) [Entitic vol] 9.4 fL Normal 9.0-12.7 [facility] Comment on above: Order Comment: Speci men Type: BLOOD SPECIMEN Ordering Facility: [facility] Address: [address] [place] [address] Performed By: #### 5 8410-2 #### [facility] CLIA [id number] [address] [place] [address] [place] Platelets (Bld) [#/Vol] 196 10*3/uL Normal 150-400 [facility] Comment on above: Order Comment: Speci men Type: BLOOD SPECIMEN Ordering Facility: [facility] Address: [address] [place] [address] Performed By: #### 5 8410-2 #### [facility] CLIA [id number] [address] [place] [address] [place] RBC (Bld) [#/Vol] 3.66 10*6/uL Low 4.20-6.00 [facility] Comment on above: Order Comment: Speci men Type: BLOOD SPECIMEN Ordering Facility: [facility] Address: [address] [place] [address] Performed By: #### 5 8410-2 #### [facility] CLIA [id number] [address] [place] [address] [place] WBC (Bld) [#/Vol] 9.04 10*3/uL Normal 3.70-11.00 [facility] Comment on above: Order Comment: Shahrzad dumont Type: BLOOD SPECIMEN Ordering Facility: [facility] Address: [place] [id number] Performed By: #### 5 8410-2 #### [facility] CLIA [id number] [address] [place] [address] [place] CNDSon 12-11-2022 CNDS HNO ID: [id number] Author: Brittany Rubio PA-C Service: Neurosurgery Author Type: Physician Emergency Department Coordinator Type: Discharge Summary Filed: 12/11/2022 10:38 AM [...] you become constipated, you may use any xwpf-jzv-djpoeuw treatment such as Milk of Magnesia, Sennakot, Prune Juice, Suppositories, etc. in addition to the stool softener/fiber supplement No alcohol or driving while on pain medication Use the dispensed medication (see prescription) You should use an qbwk-lif-mrpfwmv stool softener (Docusate sodium) and/or a fiber [...] call for appointment?: (more content not included)... 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 [facility] NURSING PROGon 12-11-2022 NURSING PROG HNO ID: [id number] Author: Erlinda Bui RN Service: Nursing Author Type: Advance Clinical [...] information. Patient verbalizing understanding of instructions. Normal [facility] Basic metabolic 2000 panelon 12-10-2022 Anion gap [Moles/Vol] 7 mmol/L Low - [facility] Comment on above: Order Comment: Speci men Type: BLOOD SPECIMEN Ordering Facility: [facility] Address: [address] [place] [address] Performed By: #### 2 4321-2 #### [facility] CLIA [id number] [address] [place] [address] [place] Calcium [Mass/Vol] 8.3 mg/dL Low 8.5-10.2 [facility] Comment on above: Order Comment: Speci men Type: BLOOD SPECIMEN Ordering Facility: [facility] Address: [address] [place] [address] Performed By: #### 2 4321-2 #### [facility] CLIA [id number] [address] [place] [address] [place] Chloride [Moles/Vol] 107 mmol/L High 97-105 [facility] Comment on above: Order Comment: Speci men Type: BLOOD SPECIMEN Ordering Facility: [facility] Address: [address] [place] [address] Performed By: #### 2 4321-2 #### [facility] CLIA [id number] [address] [place] [id number] [place] CO2 [Moles/Vol] 26 mmol/L Normal 22-30 [facility] Comment on above: Order Comment: Speci men Type: BLOOD SPECIMEN Ordering Facility: [facility] Address: [address] [place] [address] Performed By: #### 2 4321-2 #### [facility] CLIA [id number] [address] [place] [address] [place] Creatinine [Mass/Vol] 1.16 mg/dL Normal 0.73-1.22 [facility] Comment on above: Order Comment: Shahrzad dumont Type: BLOOD SPECIMEN Ordering Facility: [facility] Address: [address] [place] [address] Performed By: #### 2 4321-2 #### [facility] CLIA [id number] [address] [place] [address] [place] Creatinine and Glomerular filtration rate.predicted panel (S/P/Bld) 73 mL/min/1.73m??? Normal >=60 [facility] Comment on above: Order Comment: Shahrzad dumont Type: BLOOD SPECIMEN Ordering Facility: [facility] Address: [address] [place] [address] Result Comment: Leah mated Glomerular Filtration Rate [...] GFR. Performed By: #### 2 4321-2 #### [facility] CLIA [id number] [address] [place] [address] [place] Glucose [Mass/Vol] 129 mg/dL High 74-99 [facility] Comment on above: Order Comment: Shahrzad dumont Type: BLOOD SPECIMEN Ordering Facility: [facility] Address: [address] [place] [address] Result Comment: The [place] [employer] (ADA) provides guidance for cutoff [...] Standards of Medical Care in Diabetes 2016, [place] [employer]. Diabetes Care. 2016.39(Suppl 1). Performed By: #### 2 4321-2 #### [facility] CLIA [id number] [address] [place] [address] [place] Potassium [Moles/Vol] 4.3 mmol/L Normal 3.7-5.1 [facility] Comment on above: Order Comment: Speci men Type: BLOOD SPECIMEN Ordering Facility: [facility] Address: [address] [place] [address] Performed By: #### 2 4321-2 #### [facility] CLIA [id number] [address] [place] [address] [place] Sodium [Moles/Vol] 140 mmol/L Normal 136-144 [facility] Comment on above: Order Comment: Shahrzad dumont Type: BLOOD SPECIMEN Ordering Facility: [facility] Address: [address] [place] [address] Performed By: #### 2 4321-2 #### [facility] CLIA [id number] [address] [place] [address] [place] Urea nitrogen [Mass/Vol] 16 mg/dL Normal 9-24 [facility] Comment on above: Order Comment: Toneyi tim Type: BLOOD SPECIMEN Ordering Facility: [facility] Address: [address] [place] [address] Performed By: #### 2 4321-2 #### [facility] CLIA [id number] [address] [place] [address] [place] CBC panel Auto (Bld)on 12-10 Erythrocyte distribution width (RBC) [Ratio] 12.6 % Normal 11.5-15.0 [facility] Comment on above: Order Comment: Toneyi men Type: BLOOD SPECIMEN Ordering Facility: [facility] Address: [address] [place] [address] Performed By: #### 5 8410-2 #### [facility] CLIA [id number] [address] [place] [address] [place] Hematocrit (Bld) [Volume fraction] 32.7 % Low 39.0-51.0 [facility] Comment on above: Order Comment: Speci men Type: BLOOD SPECIMEN Ordering Facility: [facility] Address: [address] [place] [address] Performed By: #### 5 8410-2 #### [facility] CLIA [id number] [address] [place] [address] [place] Hemoglobin (Bld) [Mass/Vol] 10.9 g/dL Low 13.0-17.0 [facility] Comment on above: Order Comment: Speci men Type: BLOOD SPECIMEN Ordering Facility: [facility] Address: [address] [place] [address] Performed By: #### 5 8410-2 #### [facility] CLIA [id number] [address] [place] [address] [place] MCH (RBC) [Entitic mass] 31.5 pg Normal 26.0-34.0 [facility] Comment on above: Order Comment: Speci men Type: BLOOD SPECIMEN Ordering Facility: [facility] Address: [address] [place] [address] Performed By: #### 5 8410-2 #### [facility] CLIA [id number] [address] [place] [address] [place] MCHC (RBC) [Mass/Vol] 33.3 g/dL Normal 30.5-36.0 [facility] Comment on above: Order Comment: Speci men Type: BLOOD SPECIMEN Ordering Facility: [facility] Address: [address] [place] [address] Performed By: #### 5 8410-2 #### [facility] CLIA [id number] [address] [place] [address] [place] MCV (RBC) [Entitic vol] 94.5 fL Normal 80.0-100.0 [facility] Comment on above: Order Comment: Speci men Type: BLOOD SPECIMEN Ordering Facility: [facility] Address: [address] [place] [address] Performed By: #### 5 8410-2 #### [facility] CLIA [id number] [address] [place], [place] [address] [place] Nucleated RBC (Bld) [#/Vol] 10*3/uL Normal <0.01 [facility] Comment on above: Order Comment: Speci men Type: BLOOD SPECIMEN Ordering Facility: [facility] Address: [address] [place] [address] Performed By: #### 5 8410-2 #### [facility] CLIA [id number] [address] [place] [address] [place] Platelet mean volume (Bld) [Entitic vol] 9.6 fL Normal 9.0-12.7 [facility] Comment on above: Order Comment: Speci men Type: BLOOD SPECIMEN Ordering Facility: [facility] Address: [address] [place] [address] Performed By: #### 5 8410-2 #### [facility] CLIA [id number] [address] [place] [address] [place] Platelets (Bld) [#/Vol] 157 10*3/uL Normal 150-400 [facility] Comment on above: Order Comment: Speci men Type: BLOOD SPECIMEN Ordering Facility: [facility] Address: [address] [place] [address] Performed By: #### 5 8410-2 #### [facility] CLIA [id number] [address] [place] [address] [place] RBC (Bld) [#/Vol] 3.46 10*6/uL Low 4.20-6.00 [facility] Comment on above: Order Comment: Speci men Type: BLOOD SPECIMEN Ordering Facility: [facility] Address: [address] [place] [address] Performed By: #### 5 8410-2 #### [facility] CLIA [id number] [address] [place] [address] [place] WBC (Bld) [#/Vol] 8.16 10*3/uL Normal 3.70-11.00 [facility] Comment on above: Order Comment: Speci men Type: BLOOD SPECIMEN Ordering Facility: [facility] Address: [address] [place] [address] Performed By: #### 5 8410-2 #### [facility] CLIA [id number] [address] [place], [place] [address] [facility] THERAPY NTon 12-10-2022 THERAPY NT HNO ID: [id number] Author: Odilon Madrid PT Service: Physical Therapy Author Type: Physical Therapist Type: Therapy (PT/OT/Speech/Resp) Filed: 12/10/2022 11:20 AM Note Text: PHYSICAL THERAPY MISSED VISIT SERVICE DATE: 12/10/2022 SERVICE TIME: 1109 to 1111 ROOM: [place] [address] Patient not seen due to Refused Treatment. Pt reported pain levels are too high to attempt therapy. Will f/u as schedule allows and pain improves. SIGNATURE: Odilon Madrid PT PATIENT NAME: Sukhdeep Simental DATE: December 10, 2022 TIME: 11:20 AM [facility] ALLIED HEALTHon 12-09-2022 ALLIED HEALTH HNO ID: [id number] Author: Akila Huitron RT(R) Service: Radiology Author [...] RT Jose(R) December 09, 2022 2:01 PM [facility] Basic metabolic 2000 panelon 12-09-2022 Anion gap [Moles/Vol] 6 mmol/L Low -18 [facility] Comment on above: Order Comment: Speci men Type: BLOOD SPECIMEN Ordering Facility: [facility] Address: [address] [place] [address] Performed By: #### 2 4321-2 #### [facility] CLIA [id number] [address] [place], [place] [address] [place] Calcium [Mass/Vol] 8.5 mg/dL Normal 8.5-10.2 [facility] Comment on above: Order Comment: Speci men Type: BLOOD SPECIMEN Ordering Facility: [facility] Address: [address] [place] [address] Performed By: #### 2 4321-2 #### [facility] CLIA [id number] [address] [place] [address] [place] Chloride [Moles/Vol] 106 mmol/L High 97-105 [facility] Comment on above: Order Comment: Speci men Type: BLOOD SPECIMEN Ordering Facility: [facility] Address: [address] [place] [address] Performed By: #### 2 4321-2 #### [facility] CLIA [id number] [address] [place] [address] [place] CO2 [Moles/Vol] 30 mmol/L Normal 22-30 [facility] Comment on above: Order Comment: Speci men Type: BLOOD SPECIMEN Ordering Facility: [facility] Address: [address] [place] [address] Performed By: #### 2 4321-2 #### [facility] CLIA [id number] [address] [place] [address] [place] Creatinine [Mass/Vol] 1.34 mg/dL High 0.73-1.22 [facility] Comment on above: Order Comment: Speci men Type: BLOOD SPECIMEN Ordering Facility: [facility] Address: [address] [place] [address] Performed By: #### 2 4321-2 #### [facility] CLIA [id number] [address] [place] [address] [place] Creatinine and Glomerular filtration rate.predicted panel (S/P/Bld) 61 mL/min/1.73m??? Normal >=60 [facility] Comment on above: Order Comment: Shahrzad dumont Type: BLOOD SPECIMEN Ordering Facility: [facility] Address: [address] [place] [address] Result Comment: Leah mated Glomerular Filtration Rate [...] GFR. Performed By: #### 2 4321-2 #### [facility] CLIA [id number] [address] [place] [address] [place] Glucose [Mass/Vol] 105 mg/dL High 74-99 [facility] Comment on above: Order Comment: Shahrzad dumont Type: BLOOD SPECIMEN Ordering Facility: [facility] Address: [address] [place] [address] Result Comment: The [place] [employer] (ADA) provides guidance for cutoff [...] Standards of Medical Care in Diabetes 2016, [place] [employer]. Diabetes Care. 2016.39(Suppl 1). Performed By: #### 2 4321-2 #### [facility] CLIA [id number] [address] [place] [address] [place] Potassium [Moles/Vol] 3.9 mmol/L Normal 3.7-5.1 [facility] Comment on above: Order Comment: Shahrzad dumont Type: BLOOD SPECIMEN Ordering Facility: [facility] Address: [address] [place] [address] Performed By: #### 2 4321-2 #### [facility] CLIA [id number] [address] [place] [address] [place] Sodium [Moles/Vol] 142 mmol/L Normal 136-144 [facility] Comment on above: Order Comment: Speci men Type: BLOOD SPECIMEN Ordering Facility: [facility] Address: [address] [place] [address] Performed By: #### 2 4321-2 #### [facility] IA [id number] [address] [place] [address] [place] Urea nitrogen [Mass/Vol] 18 mg/dL Normal 9-24 [facility] Comment on above: Order Comment: Speci men Type: BLOOD SPECIMEN Ordering Facility: [facility] Address: [address] [place] [address] Performed By: #### 2 4321-2 #### [facility] IA [id number] [address] [place] [address] [place] CBC panel Auto (Bld)on 12-09 Erythrocyte distribution width (RBC) [Ratio] 12.7 % Normal 11.5-15.0 [facility] Comment on above: Order Comment: Speci men Type: BLOOD SPECIMEN Ordering Facility: [facility] Address: [address] [place] [address] Performed By: #### 5 8410-2 #### [facility] IA [id number] [address] [place] [address] [place] Hematocrit (Bld) [Volume fraction] 34.1 % Low 39.0-51.0 [facility] Comment on above: Order Comment: Speci men Type: BLOOD SPECIMEN Ordering Facility: [facility] Address: [address] [place] [address] Performed By: #### 5 8410-2 #### [facility] IA [id number] [address] [place] [address] [place] Hemoglobin (Bld) [Mass/Vol] 11.6 g/dL Low 13.0-17.0 [facility] Comment on above: Order Comment: Speci men Type: BLOOD SPECIMEN Ordering Facility: [facility] Address: [address] [place] [address] Performed By: #### 5 8410-2 #### [facility] CLIA [id number] [address] [place] [address] [place] MCH (RBC) [Entitic mass] 32.3 pg Normal 26.0-34.0 [facility] Comment on above: Order Comment: Speci men Type: BLOOD SPECIMEN Ordering Facility: [facility] Address: [address] [place] [address] Performed By: #### 5 8410-2 #### [facility] IA [id number] [address] [place] [address] [place] MCHC (RBC) [Mass/Vol] 34.0 g/dL Normal 30.5-36.0 [facility] Comment on above: Order Comment: Speci men Type: BLOOD SPECIMEN Ordering Facility: [facility] Address: [address] [place] [address] Performed By: #### 5 8410-2 #### [facility] IA [id number] [address] [place] [address] [place] MCV (RBC) [Entitic vol] 95.0 fL Normal 80.0-100.0 [facility] Comment on above: Order Comment: Speci men Type: BLOOD SPECIMEN Ordering Facility: [facility] Address: [address] [place] [address] Performed By: #### 5 8410-2 #### [facility] IA [id number] [address] [place] [address] [place] Nucleated RBC (Bld) [#/Vol] 10*3/uL Normal <0.01 [facility] Comment on above: Order Comment: Speci men Type: BLOOD SPECIMEN Ordering Facility: [facility] Address: [address] [place] [address] Performed By: #### 5 8410-2 #### [facility] IA [id number] [address] [place] [address] [place] Platelet mean volume (Bld) [Entitic vol] 9.6 fL Normal 9.0-12.7 [facility] Comment on above: Order Comment: Speci men Type: BLOOD SPECIMEN Ordering Facility: [facility] Address: [address] [place] [address] Performed By: #### 5 8410-2 #### [facility] CLIA [id number] [address] [place], [place] [address] [place] Platelets (Bld) [#/Vol] 159 10*3/uL Normal 150-400 [facility] Comment on above: Order Comment: Speci men Type: BLOOD SPECIMEN Ordering Facility: [facility] Address: [address] [place] [address] Performed By: #### 5 8410-2 #### [facility] CLIA [id number] [address] [place], [place] [address] [place] RBC (Bld) [#/Vol] 3.59 10*6/uL Low 4.20-6.00 [facility] Comment on above: Order Comment: Speci men Type: BLOOD SPECIMEN Ordering Facility: [facility] Address: [address] [place] [address] Performed By: #### 5 8410-2 #### [facility] CLIA [id number] [address] [place], [place] [address] [place] WBC (Bld) [#/Vol] 8.72 10*3/uL Normal 3.70-11.00 [facility] Comment on above: Order Comment: Speci men Type: BLOOD SPECIMEN Ordering Facility: [facility] Address: [address] [place] [address] Performed By: #### 5 8410-2 #### [facility] IA [id number] [address] [place], [place] [address] [place] NURSING PROGon 12-09-2022 NURSING PROG HNO ID: [id number] Author: Abdias Pemberton RN Service: Nursing Author Type: Registered Nurse Type: Nursing Progress Note Filed: 12/09/2022 7:21 PM Note Text: 12/09/2022 0826: hydromorphone [employer] rate varied. Patient rating pain 8/10 at this time stating oh, its much better than yesterday . 0931: Patient working with PT at this time 1035: Patient resting/sleeping comfortably in bed at this time. 1200: fentaNYL [employer] ordered. 1345: Patient ambulating in the hallway with nursing staff and . 1402: Patient at radiology for post-op XR 1406: Hydromorphone [employer] discontinued. While discontinuing the hydromorphone [employer], patient made several comments about unused hydromorphone, I can take that medication off your hands. Patient educated that the medication will be properly wasted per protocol. 1407: fentaNYL [employer] started and Hydromorphone properly wasted per protocol. [...] Can't you increase my setting on the [employer] because I had better pain relief with the Dilaudid pump because I could press the button more frequent? Can you increase the pump settings? [facility] THERAPY NTon 12-09-2022 THERAPY NT HNO ID: [id number] Author: Abdias Crooks OT/L Service: Occupational Therapy Author Type: Occupational Therapist Type: Therapy (PT/OT/Speech/Resp) Filed: 12/09/2022 3:30 PM Note Text: Occupational Therapy Evaluation SERVICE DATE: 12/09/2022 SERVICE TIME: 1438 to 1502 ROOM: [address]- Total Joint Replacement Discharge Readiness: Cleared from [...] slower than expec (more content not included)... [facility] THERAPY NT HNO ID: [id number] Author: Hannah Mota PT, DPT Service: Physical Therapy Author Type: Physical Therapist Type: Therapy (PT/OT/Speech/Resp) Filed: 12/09/2022 10:06 AM Note Text: Physical Therapy Treatment SERVICE DATE: 12/09/2022 SERVICE TIME: 930 to 954 ROOM: [id number]- Total Joint Replacement Discharge Readiness: Cleared from Physical Therapy Recommended Discharge Disposition: Home Anticipated Discharge Needs: Physical Assist at Home Physical Assist at Home for: Cleaning, Laundry, Meals, Stairs, Safety Recommended Discharge Equipment: No equipment needs anticipated PT 6 Clicks Score: 24 Pt agreeable to participate. Reports slight improvement in pain compared to yesterday but relies highly on [employer]. Pt able to ambulate around unit with [...] Difficulty walking-musculoskeleta l Interventions Provided: Therapeutic Activity (12531), Gait Training (34982) Therapeutic Activity (60593) Treatment Minutes: 10 $ Therapeutic Activity (88208) Billed Units: 1 unit Gait Training (29205) Treatment Minutes: 14 $ Gait Training (74249) Billed Units: 1 unit Training AND Education [...] for this therapy (more content not included)... [facility] XR LUMBAR 2V AP/LATon 2022 XR [...] IMPRESSION: Postoperative and degenerative changes as described. Team Manager: PSCB Transcribe Date/Time: Dec 09 2022 3:39P Dictated by : DONNY WOO DO This examination was interpreted and the report reviewed and electronically signed by: DONNY WOO DO on Dec 09 2022 3:42PM EST [id number] Normal [facility] Basic metabolic 2000 panelon 12-08-2022 Anion gap [Moles/Vol] 7 mmol/L Low 9-18 [facility] Comment on above: Order Comment: Speci men Type: BLOOD SPECIMEN Ordering Facility: [facility] Address: [address] [place] [address] Performed By: #### 2 4321-2 #### [facility] CLIA [id number] [address] [place] [address] [place] Calcium [Mass/Vol] 8.2 mg/dL Low 8.5-10.2 [facility] Comment on above: Order Comment: Speci men Type: BLOOD SPECIMEN Ordering Facility: [facility] Address: [address] [place] [address] Performed By: #### 2 4321-2 #### [facility] CLIA [id number] [address] [place] [address] [place] Chloride [Moles/Vol] 106 mmol/L High 97-105 [facility] Comment on above: Order Comment: Speci men Type: BLOOD SPECIMEN Ordering Facility: [facility] Address: [address] [place] [address] Performed By: #### 2 4321-2 #### [facility] CLIA [id number] [address] [place] [address] [place] CO2 [Moles/Vol] 28 mmol/L Normal 22-30 [facility] Comment on above: Order Comment: Speci men Type: BLOOD SPECIMEN Ordering Facility: [facility] Address: [address] [place] [address] Performed By: #### 2 4321-2 #### [facility] CLIA [id number] [address] [place] [address] [place] Creatinine [Mass/Vol] 1.35 mg/dL High 0.73-1.22 [facility] Comment on above: Order Comment: Shahrzad dumont Type: BLOOD SPECIMEN Ordering Facility: [facility] Address: [address] [place] [address] Performed By: #### 2 4321-2 #### [facility] IA [id number] [address] [place], [place] [address] [place] Creatinine and Glomerular filtration rate.predicted panel (S/P/Bld) 60 mL/min/1.73m??? Normal >=60 [facility] Comment on above: Order Comment: Shahrzad dumont Type: BLOOD SPECIMEN Ordering Facility: [facility] Address: [address] [place] [address] Result Comment: Leah mated Glomerular Filtration Rate [...] GFR. Performed By: #### 2 4321-2 #### [facility] IA [id number] [address] [place], [place] [address] [place] Glucose [Mass/Vol] 139 mg/dL High 74-99 [facility] Comment on above: Order Comment: Shahrzad dumont Type: BLOOD SPECIMEN Ordering Facility: [facility] Address: [address] [place] [address] Result Comment: The [place] [employer] (ADA) provides guidance for cutoff [...] Standards of Medical Care in Diabetes 2016, [place] [employer]. Diabetes Care. 2016.39(Suppl 1). Performed By: #### 2 4321-2 #### [facility] CLIA [id number] [address] [place] [address] [place] Potassium [Moles/Vol] 3.7 mmol/L Normal 3.7-5.1 [facility] Comment on above: Order Comment: Speci men Type: BLOOD SPECIMEN Ordering Facility: [facility] Address: [address] [place] [address] Performed By: #### 2 4321-2 #### [facility] CLIA [id number] [address] [place], [place] [address] [place] Sodium [Moles/Vol] 141 mmol/L Normal 136-144 [facility] Comment on above: Order Comment: Shahrzad dumont Type: BLOOD SPECIMEN Ordering Facility: [facility] Address: [address] [place] [address] Performed By: #### 2 4321-2 #### [facility] CLIA [id number] [address] [place] [address] [place] Urea nitrogen [Mass/Vol] 23 mg/dL Normal 9-24 [facility] Comment on above: Order Comment: Shahrzad dumont Type: BLOOD SPECIMEN Ordering Facility: [facility] Address: [address] [place] [address] Performed By: #### 2 4321-2 #### [facility] CLIA [id number] [address] [place], [place] [address] [place] CASE MGT INIT ASSESon 2022 CASE MGT INIT ASSES HNO ID: [id number] Author: Gloria Toro RN Service: ? Author Type: Registered Nurse Type: Care Mgt Initial Assessment Filed: 12/08/2022 8:48 AM Note Text: CARE MANAGEMENT: ASSESSMENT AND DISCHARGE PLAN SERVICE DATE: December 08, 2022 SERVICE TIME: 8:46 am PCP: Blayne Isabel MD Primary Contact: Extended Emergency Contact Information Primary Emergency Contact: Darryl Simental Address: [address] [place] [address] [place] [address] [place] Mobile Relation: Spouse Admission [...] to go home, General wellness, Less pain [place] of Choice Explained: Hamilton of Choice Given: No Reason Not Given: [...] further skilled PT / OT needed at [place]. CM Department will continue to follow until [place]. SIGNATURE: Gloria Toro RN PATIENT NAME: Sukhdeep Simental DATE: December 08, 2022 TIME: 8:46 AM CONTACT #: [phone] Normal [facility] CBC panel Auto (Bld)on 12-08 Erythrocyte distribution width (RBC) [Ratio] 12.8 % Normal 11.5-15.0 [facility] Comment on above: Order Comment: Speci men Type: BLOOD SPECIMEN Ordering Facility: [facility] Address: [address] [place] [address] Performed By: #### 5 8410-2 #### [facility] CLIA [id number] [address] Hematocrit (Bld) [Volume fraction] 34.8 % Low 39.0-51.0 [facility] Comment on above: Order Comment: Speci men Type: BLOOD SPECIMEN Ordering Facility: [facility] Address: [address] [place] [address] Performed By: #### 5 8410-2 #### [facility] IA [id number] [address] [place] [address] [place] Hemoglobin (Bld) [Mass/Vol] 11.7 g/dL Low 13.0-17.0 [facility] Comment on above: Order Comment: Speci men Type: BLOOD SPECIMEN Ordering Facility: [facility] Address: [address] [place] [address] Performed By: #### 5 8410-2 #### [facility] IA [id number] [address] [place] [address] [place] MCH (RBC) [Entitic mass] 31.8 pg Normal 26.0-34.0 [facility] Comment on above: Order Comment: Speci men Type: BLOOD SPECIMEN Ordering Facility: [facility] Address: [address] [place] [address] Performed By: #### 5 8410-2 #### [facility] IA [id number] [address] [place] [address] [place] MCHC (RBC) [Mass/Vol] 33.6 g/dL Normal 30.5-36.0 [facility] Comment on above: Order Comment: Speci men Type: BLOOD SPECIMEN Ordering Facility: [facility] Address: [address] [place] [address] Performed By: #### 5 8410-2 #### [facility] IA [id number] [address] [place] [address] [place] MCV (RBC) [Entitic vol] 94.6 fL Normal 80.0-100.0 [facility] Comment on above: Order Comment: Speci men Type: BLOOD SPECIMEN Ordering Facility: [facility] Address: [address] [place] [address] Performed By: #### 5 8410-2 #### [facility] CLIA [id number] [address] [place] [address] [place] Nucleated RBC (Bld) [#/Vol] 10*3/uL Normal <0.01 [facility] Comment on above: Order Comment: Speci men Type: BLOOD SPECIMEN Ordering Facility: [facility] Address: [address] [place] [address] Performed By: #### 5 8410-2 #### [facility] CLIA [id number] [address] [place] [address] [place] Platelet mean volume (Bld) [Entitic vol] 9.4 fL Normal 9.0-12.7 [facility] Comment on above: Order Comment: Speci men Type: BLOOD SPECIMEN Ordering Facility: [facility] Address: [address] [place] [address] Performed By: #### 5 8410-2 #### [facility] CLIA [id number] [address] [place] [address] [place] Platelets (Bld) [#/Vol] 162 10*3/uL Normal 150-400 [facility] Comment on above: Order Comment: Speci men Type: BLOOD SPECIMEN Ordering Facility: [facility] Address: [address] [place] [address] Performed By: #### 5 8410-2 #### [facility] IA [id number] [address] [place] [address] [place] RBC (Bld) [#/Vol] 3.68 10*6/uL Low 4.20-6.00 [facility] Comment on above: Order Comment: Speci men Type: BLOOD SPECIMEN Ordering Facility: [facility] Address: [address] [place] [address] Performed By: #### 5 8410-2 #### [facility] CLIA [id number] [address] [place] [address] [place] WBC (Bld) [#/Vol] 7.95 10*3/uL Normal 3.70-11.00 [facility] Comment on above: Order Comment: Speci men Type: BLOOD SPECIMEN Ordering Facility: [facility] Address: [address] [place] [address] Performed By: #### 5 8410-2 #### [facility] CLIA [id number] [address] [place] [address] CONSULTon 12-08-2022 CONSULT HNO ID: [id number] Author: Lulu Oviedo MD Service: General Internal [...] Labs 12/08 (more content not included)... Normal [facility] NURSING PROGon 12-08-2022 NURSING PROG HNO ID: [id number] Author: Abdias Pemberton RN Service: Nursing Author [...] 1650: Patient medicated per eMAR with Robaxin 165: Pain management and Dr. Mathew notified of the patient's increased pain after [employer] was DC'ed earlier and transitioned to PO medications. Hydromorphone [employer] reordered per Dr. Mathew. 172: Hydromorphone [employer] restarted. 1735: Patient assisted by nursing staff to bed and states that his pain has decreased. Patient resting comfortably in bed at this time. 1900: Patient resting comfortably in bed at this time. [facility] THERAPY NT 12-08-2022 THERAPY NT HNO ID: [id number] Author: Taylor Montoya OTR/Kelly Service: Occupational Therapy Author Type: Occupational Therapist Type: Therapy (PT/OT/Speech/Resp) Filed: 12/08/2022 12:35 PM Note Text: OCCUPATIONAL THERAPY MISSED VISIT SERVICE DATE: 12/08/2022 SERVICE TIME: 1233 to 1233 ROOM: [place] [address] Patient not seen due to Refused Treatment. Patient having a significant amount of pain. Offered patient option of working with OT tomorrow. Pt would prefer OT evaluation tomorrow. SIGNATURE: URSULA Glynn/Kelly PATIENT NAME: Sukhdeep Simental DATE: December 08, 2022 TIME: 12:34 PM [facility] THERAPY NT HNO ID: [id number] Author: Jean-Pierre Lutz, PT, DPT Service: Physical Therapy Author Type: Physical Therapist Type: Therapy (PT/OT/Speech/Resp) Filed: 12/08/2022 8:44 AM Note Text: Physical Therapy Evaluation SERVICE DATE: 12/08/2022 SERVICE TIME: 08 to 0831 ROOM: [place] [address] Cleared from Physical Therapy Recommended Discharge Disposition: [...] Flexed trunk posture, Wide base of support JH-HLM: 7: Walk 25 feet or more [...] Weakness (generalized) Interventions Provided: Evaluation, Gait Training (71775) $ Evaluation-Low (53947) Billed Units: 1 unit Gait Training (43828) Treatment Minutes: 8 $ Gait Training (24401) Billed Units: 1 unit Training AND Education [...] DATE: December 08, 2022 TIME: 8:44 AM [facility] ANES POSTPROC EVALon 023 ANES POSTPROC EVAL HNO ID: [id number] Author: Ankit Orlando MD Service: Anesthesiology Author Type: Anesthesiologist Type: Anesthesia Postprocedure Evaluation Filed: 12/07/2022 3:37 PM Note Text: POST ANESTHESIA EVALUATION NOTE : 1965 Procedure Summary Date: 12/07/22 Room / Location: OR / OR Anesthesia Start: 737 Anesthesia Stop: 1254 Procedures: TLIF DECOMPRESSION LAMINECTOMY INTERBODY FUSION LUMBAR [...] December 07, 2022 TIME: 3:37 PM CSN: [id number] [facility] ANES PRE-OPon 12-07-2022 ANES PRE-OP HNO ID: [id number] Author: Nasim Pruett I, MD Service: Anesthesiology [...] December 07, 2022 TIME: 7:01 AM CSN: [id number] [facility] BRIEF OP NOTon 12-07-2022 BRIEF OP NOT HNO ID: [id number] Author: Thomas Mathew MD Service: Neurosurgery Author Type: Physician Type: Brief Op Note Filed: 12/07/2022 12:49 PM Note Text: BRIEF OPERATIVE / PROCEDURE NOTE LOG ID: [id number] SURGERY/PROCEDURE DATE: 12/07/2022 INCISION/PROCEDURE START TIME: 8:09 AM INCISION CLOSE/PROCEDURE END TIME: 12:34 PM SURGEON(S)/PROCEDURALI ST(S) AND PROPERTY ACCOUNTANT(S): Surgeon(s) and Role: * Thomas Mathew MD [...] DATE: December 07, 2022 TIME: 12:31 PM [facility] NURSING PROGon 12-07-2022 NURSING PROG HNO ID: [id number] Author: Livia Calix RN Service: ? Author Type: Registered Nurse Type: Nursing Progress Note Filed: 12/07/2022 2:48 PM Note Text: Transfer Note: PATIENT NAME: Sukhdeep Simental Patient Location: [address]/[facility]- 02 Room: [place] [address] Patient transferred into room/unit [facility]-2 in stable condition. Patient educated on use of call light, fall precautions, and incentive spirometer. No futher actions taken at this time. Will continue to monitor and check with patient. [facility] OPERATIVE NOon 12-07-2022 OPERATIVE NO HNO ID: [id number] Author: Thomas Mathew MD Service: Neurosurgery Author Type: Physician Type: Operative Report Filed: 12/07/2022 3:54 PM Note Text: OPERATIVE/PROCEDURE REPORT LOG ID: [id number] SURGERY/PROCEDURE DATE: 12/07/2022 INCISION/PROCEDURE START TIME: 8:09 AM INCISION CLOSE/PROCEDURE END TIME: 12:34 PM SURGEON(S)/PROCEDURALI ST(S) AND PROPERTY ACCOUNTANT(S): Surgeon(s) and Role: * Thomas Mathew MD [...] and sized at a 10 mm. The OneName system was the instrumentation system used. Local [...] drill was used to make a small ship harbor pilot hole. The gear shift along with [...] Implant Name Type Inv. Item Serial No. Chick Room Supervisor Lot No. LRB No. Used Action VITOSS BA2X BIOACTIVE BONE GRAFT SUBSTITUTE 5.0CUB CM Implant VIRIGNIA [id number] N/A 1 Implanted CAGE TRITANIUM 6D [id number] SPINAL STERILE LATEX FREE LUMBAR POSTERIOR - [id number] Implant CAGE TRITANIUM 6D [id number] SPINAL STERILE LATEX FREE LUMBAR POSTERIOR [place] [employer]INE T9H8 N/A 1 Implanted CAGE TRITANIUM 6D [id number] SPINAL STERILE LATEX FREE LUMBAR POSTERIOR - [id number] Implant CAGE TRITANIUM 6D [id number] (more content not included)... [facility] XR LUMBAR 2V AP/LATon 2022 XR [...] examination for surgical planning and documentation. . Team Manager: PSCJohn Transcribe Date/Time: Dec 07 2022 3:13P Dictated by : DONNY WOO DO This examination was interpreted and the report reviewed and electronically signed by: DONNY WOO DO on Dec 07 2022 3:15PM EST [id number] [facility] XR LUMBAR 2V AP/LAT * * [...] Intraoperative examination for surgical planning and documentation. Team Manager: COURTNEY Transcribe Date/Time: Dec 07 2022 2:43P Dictated by : DONNY WOO DO This examination was interpreted and the report reviewed and electronically signed by: DONNY WOO DO on Dec 07 2022 2:46PM EST [id number] [facility] XR LUMBAR 2V AP/LAT * * *Final Report* * * DATE OF EXAM: Dec 07 2022 9:27AM DI Rojas29 - XR LUMBAR 2V AP/LAT / PROCEDURE [...] examination for surgical planning and documentation. . Team Manager: PSCB Transcribe Date/Time: Dec 07 2022 2:37P Dictated by : DONNY WOO DO This examination was interpreted and the report reviewed and electronically signed by: DONNY WOO DO on Dec 07 2022 2:40PM EST [id number] [facility] 11-29-2022 [facility] Telephone (NIQ) SUKHDEEP SIMENTAL ([id number]) 1965 M Date Time Provider Department 11/29/22 THOMAS MATHEW NI During your visit today, we recorded the following information about you: Moriah Ferguson 11/29/2022 9:50 AM Signed Patient called regarding a C/9 being filed for his Dec 07 surgery. He spoke to his [facility] contact and they said nothing has been filed yet. Please update patient. Juan Pablo Nova RN 11/29/2022 10:27 AM Signed C9 sent to provider for signature. Awaiting signature. Juan Pablo Nova RN 11/29/2022 12:20 PM Signed Signed C9 sent to [facility] and [facility]. Faxed verifications received. Kathe Lezama 12/05/2022 11:01 AM Signed Patient calling asking for an update on his C9 and surgery approval. He would like to know if nurse can reach out to [facility] for an update and let him know. Juan Pablo Nova RN 12/05/2022 11:43 AM Signed Called Sunita and discussed patient's upcoming surgery. Per Sunita she did already explain to the patient that the information was submitted to the Environmental Sciences Professor for review and does take up to 5 business days for a decision. Juan Pablo Nova RN 12/05/2022 1:16 PM Signed Spoke with patient. Informed case is still on for Saturday and that I spoke with Sunita. Patient appreciative of call. Ekaterina Rondon 12/06/2022 11:34 AM Addendum Sunita called from [facility] [place] regarding patient surgery tomorrow. Surgery has been approved based on what it was shown on the medical record. Sunita wanted a called back # [phone] Ekaterina Rondon 12/06/2022 11:35 AM Signed [facility] Scan in [...] Date Reviewed: 11/21/2022 Reviewed by: Maite Galloway APRN.SPEECH LANGUAGE PATHOLOGIST PRN - Fully Assessed Reason for Visit: Bwc [...] by JUAN PABLO NOVA on 11/29/22 Normal [facility] CBC W Auto Differential pane l (Bld)on 11-21-2022 Basophils (Bld) [#/Vol] 0.04 10*3/uL Normal <0.11 [facility] Comment on above: Order Comment: Speci men Type: BLOOD SPECIMENOrdering Facility: [facility] Address: [address] [place] [address] Performed By: #### 5 7021-8 ####[facility] [id number] [place] [address] [place] Basophils/100 WBC (Bld) 0.8 % Normal [facility] Comment on above: Order Comment: Speci men Type: BLOOD SPECIMENOrdering Facility: [facility] Address: [address] [place] [address] Performed By: #### 5 7021-8 ####[facility] [id number] [place] [address] [place] Differential cell count method Nom (Bld) Auto Normal [facility] Comment on above: Order Comment: Speci men Type: BLOOD SPECIMENOrdering Facility: [facility] Address: [address] [place], [place] [address] Performed By: #### 5 7021-8 ####[facility] [id number] [place] [address] [place] Eosinophils (Bld) [#/Vol] 0.11 10*3/uL Normal <0.46 [facility] Comment on above: Order Comment: Speci men Type: BLOOD SPECIMENOrdering Facility: [facility] Address: [address] [place], [place] [address] Performed By: #### 5 7021-8 ####[facility] [id number] [address] [place] Eosinophils/100 WBC (Bld) 2.1 % Normal [facility] Comment on above: Order Comment: Speci men Type: BLOOD SPECIMENOrdering Facility: [facility] Address: [address] [place], [place] [address] Performed By: #### 5 7021-8 ####[facility] [id number] [place] [address] [place] Erythrocyte distribution width (RBC) [Ratio] 12.4 % Normal 11.5-15.0 [facility] Comment on above: Order Comment: Speci men Type: BLOOD SPECIMENOrdering Facility: [facility] Address: [address] [place], [place] [address] Performed By: #### 5 7021-8 ####[facility] [id number] [place] [address] [place] Hematocrit (Bld) [Volume fraction] 42.9 % Normal 39.0-51.0 [facility] Comment on above: Order Comment: Speci men Type: BLOOD SPECIMENOrdering Facility: [facility] Address: [address] [place], [place] [address] Performed By: #### 5 7021-8 ####[facility] [id number] [place] [address] [place] Hemoglobin (Bld) [Mass/Vol] 14.5 g/dL Normal 13.0-17.0 [facility] Comment on above: Order Comment: Speci men Type: BLOOD SPECIMENOrdering Facility: [facility] Address: [address] [place], [place] [address] Performed By: #### 5 7021-8 ####[facility] [id number] [place] [address] [place] Immature granulocytes (Bld) [#/Vol] 10*3/uL Normal <0.10 [facility] Comment on above: Order Comment: Speci men Type: BLOOD SPECIMENOrdering Facility: [facility] Address: [address] [place], [place] [address] Performed By: #### 5 7021-8 ####[facility] [id number] [place] [address] [place] Immature granulocytes/100 WBC (Bld) 0.4 % Normal [facility] Comment on above: Order Comment: Speci men Type: BLOOD SPECIMENOrdering Facility: [facility] Address: [address] [place], [place] [address] Performed By: #### 5 7021-8 ####[facility] [id number] [place] [address] [place] Lymphocytes (Bld) [#/Vol] 1.45 10*3/uL Normal 1.00-4.00 [facility] Comment on above: Order Comment: Speci men Type: BLOOD SPECIMENOrdering Facility: [facility] Address: [address] [place] [address] Performed By: #### 5 7021-8 ####[facility] [id number] [address] [place] Lymphocytes/100 WBC (Bld) 27.4 % Normal [facility] Comment on above: Order Comment: Speci men Type: BLOOD SPECIMENOrdering Facility: [facility] Address: [address] [place], [place] [address] Performed By: #### 5 7021-8 ####[facility] [id number] [place] [address] [place] MCH (RBC) [Entitic mass] 31.7 pg Normal 26.0-34.0 [facility] Comment on above: Order Comment: Speci men Type: BLOOD SPECIMENOrdering Facility: [facility] Address: [address] [place], [place] [address] Performed By: #### 5 7021-8 ####[facility] [id number] [address] [place] MCHC (RBC) [Mass/Vol] 33.8 g/dL Normal 30.5-36.0 [facility] Comment on above: Order Comment: Speci men Type: BLOOD SPECIMENOrdering Facility: [facility] Address: [address] [place], [place] [address] Performed By: #### 5 7021-8 ####[facility] [id number] [address] [place] MCV (RBC) [Entitic vol] 93.7 fL Normal 80.0-100.0 [facility] Comment on above: Order Comment: Speci men Type: BLOOD SPECIMENOrdering Facility: [facility] Address: [address] [place], [place] [address] Performed By: #### 5 7021-8 ####[facility] [id number] [id number] [address] [place] Monocytes (Bld) [#/Vol] 0.49 10*3/uL Normal <0.87 [facility] Comment on above: Order Comment: Speci men Type: BLOOD SPECIMENOrdering Facility: [facility] Address: [address] [place] [address] Performed By: #### 5 7021-8 ####[facility] [id number] [place] [address] [place] Monocytes/100 WBC (Bld) 9.2 % Normal [facility] Comment on above: Order Comment: Speci men Type: BLOOD SPECIMENOrdering Facility: [facility] Address: [address] [place], [place] [address] Performed By: #### 5 7021-8 ####[facility] [id number] [place] [address] [place] Neutrophils (Bld) [#/Vol] 3.19 10*3/uL Normal 1.45-7.50 [facility] Comment on above: Order Comment: Speci men Type: BLOOD SPECIMENOrdering Facility: [facility] Address: [address] [place], [place] [address] Performed By: #### 5 7021-8 ####[facility] [id number] [place] [address] [place] Neutrophils/100 WBC (Bld) 60.1 % Normal [facility] Comment on above: Order Comment: Speci men Type: BLOOD SPECIMENOrdering Facility: [facility] Address: [address] [place], [place] [address] Performed By: #### 5 7021-8 ####[facility] [id number] [place] [address] [place] Nucleated RBC (Bld) [#/Vol] 10*3/uL Normal <0.01 [facility] Comment on above: Order Comment: Speci men Type: BLOOD SPECIMENOrdering Facility: [facility] Address: [address] Performed By: #### 5 7021-8 ####[facility] [id number] [place] [address] [place] Nucleated RBC/100 WBC (Bld) [Ratio] 0.0 /100 WBC Normal [facility] Comment on above: Order Comment: Speci men Type: BLOOD SPECIMENOrdering Facility: [facility] Address: [address] Performed By: #### 5 7021-8 ####[facility] [id number] [place] [address] [place] Platelet mean volume (Bld) [Entitic vol] 9.4 fL Normal 9.0-12.7 [facility] Comment on above: Order Comment: Speci men Type: BLOOD SPECIMENOrdering Facility: [facility] Address: [address] Performed By: #### 5 7021-8 ####[facility] [id number] [place] [address] [place] Platelets (Bld) [#/Vol] 222 10*3/uL Normal 150-400 [facility] Comment on above: Order Comment: Speci men Type: BLOOD SPECIMENOrdering Facility: [facility] Address: [address] Performed By: #### 5 7021-8 ####[facility] LABCLIA [id number] [place] [address] [place] RBC (Bld) [#/Vol] 4.58 10*6/uL Normal 4.20-6.00 [facility] Comment on above: Order Comment: Speci men Type: BLOOD SPECIMENOrdering Facility: [facility] Address: [address] Performed By: #### 5 7021-8 ####[facility] LABCLIA [id number] [place] [address] [place] WBC (Bld) [#/Vol] 5.30 10*3/uL Normal 3.70-11.00 [facility] Comment on above: Order Comment: Speci men Type: BLOOD SPECIMENOrdering Facility: [facility] Address: [address] [place] [address] Performed By: #### 5 7021-8 ####[facility] LABCLIA [id number] [place] [address] [place] CONFIRM BLOOD TYPEon 023 ABO A Normal [facility] Comment on above: Order Comment: Speci men Type: BLOOD SPECIMENOrdering Facility: [facility] Address: [address] [place] [address] Performed By: #### C ONABO ####[facility] BLOOD BANKCLIA [id number] [place] [address] [place] Rh Nom (Bld) Negative Normal [facility] Comment on above: Order Comment: Speci men Type: BLOOD SPECIMENOrdering Facility: [facility] Address: [address] [place] [address] Performed By: #### C ONABO ####[facility] BLOOD BANKCLIA [id number] [place] [address] [place] Comprehensive metabolic 2000 panelon 11-21-2022 Albumin [Mass/Vol] 4.3 g/dL Normal 3.9-4.9 [facility] Comment on above: Order Comment: Speci men Type: BLOOD SPECIMENOrdering Facility: [facility] Address: [address] [place] [address] Performed By: #### 2 4323-8 ####[facility] LABCLIA [id number] [place] [address] [place] ALP [Catalytic activity/Vol] 68 U/L Normal 38-113 [facility] Comment on above: Order Comment: Speci men Type: BLOOD SPECIMENOrdering Facility: [facility] Address: [address] [address] Performed By: #### 2 4323-8 ####[facility] LABCLIA [id number] [address] STATES OF [facility] ALT [Catalytic activity/Vol] 16 U/L Normal 10-54 [facility] Comment on above: Order Comment: Speci men Type: BLOOD SPECIMENOrdering Facility: [facility] Address: [address] [address] Performed By: #### 2 4323-8 ####[facility] LABCLIA [id number] [place] [address] [place] Anion gap [Moles/Vol] 10 mmol/L Normal 9-18 [facility] Comment on above: Order Comment: Speci men Type: BLOOD SPECIMENOrdering Facility: [facility] Address: [address] [address] Performed By: #### 2 4323-8 ####[facility] LABCLIA [id number] [address] [place] AST [Catalytic activity/Vol] 21 U/L Normal 14-40 [facility] Comment on above: Order Comment: Speci men Type: BLOOD SPECIMENOrdering Facility: [facility] Address: [address] Performed By: #### 2 4323-8 ####[facility] LABCLIA [id number] [place] [address] [place] Bilirubin [Mass/Vol] 0.5 mg/dL Normal 0.2-1.3 [facility] Comment on above: Order Comment: Speci men Type: BLOOD SPECIMENOrdering Facility: [facility] Address: [address] Performed By: #### 2 4323-8 ####[facility] LABCLIA [id number] [place] [address] [place] Calcium [Mass/Vol] 9.9 mg/dL Normal 8.5-10.2 [facility] Comment on above: Order Comment: Speci men Type: BLOOD SPECIMENOrdering Facility: [facility] Address: [address] [place] [address] Performed By: #### 2 4323-8 ####[facility] LABCLIA [id number] [place] [address] [place] Chloride [Moles/Vol] 106 mmol/L High 97-105 [facility] Comment on above: Order Comment: Speci men Type: BLOOD SPECIMENOrdering Facility: [facility] Address: [address] [place] [address] Performed By: #### 2 4323-8 ####[facility] LABCLIA [id number] [place] [address] [place] CO2 [Moles/Vol] 27 mmol/L Normal 22-30 [facility] Comment on above: Order Comment: Speci men Type: BLOOD SPECIMENOrdering Facility: [facility] Address: [address] [place], [place] [address] Performed By: #### 2 4323-8 ####[facility] LABCLIA [id number] [place] [address] [place] Creatinine [Mass/Vol] 1.22 mg/dL Normal 0.73-1.22 [facility] Comment on above: Order Comment: Speci men Type: BLOOD SPECIMENOrdering Facility: [facility] Address: [address] [place], [place] [address] Performed By: #### 2 4323-8 ####[facility] LABCLIA [id number] [place] [address] [place] Creatinine and Glomerular filtration rate.predicted panel (S/P/Bld) 68 mL/min/1.73m??? Normal >=60 [facility] Comment on above: Order Comment: Shahrzad dumont Type: BLOOD SPECIMENOrdering Facility: [facility] Address: [address] [place] [address] Result Comment: Leah mated Glomerular Filtration Rate [...] actual GFR. Performed By: #### 2 4323-8 ####[facility] LABIA [id number] [place] [address] [place] Glucose [Mass/Vol] 111 mg/dL High 74-99 [facility] Comment on above: Order Comment: Shahrzad dumont Type: BLOOD SPECIMENOrdering Facility: [facility] Address: [address] [address] Result Comment: The [place] Diabetes Association (ADA) provides guidance for cutoff [...] Standards of Medical Care in Diabetes 2016, [place] Diabetes Association. Diabetes Care. 2016.39(Suppl 1). Performed By: #### 2 4323-8 ####[facility] [id number] [place] [address] [place] Potassium [Moles/Vol] 4.2 mmol/L Normal 3.7-5.1 [facility] Comment on above: Order Comment: Shahrzad dumont Type: BLOOD SPECIMENOrdering Facility: [facility] Address: [address] [address] Performed By: #### 2 4323-8 ####[facility] LABCLIA [id number] [place] [address] [place] Protein [Mass/Vol] 7.0 g/dL Normal 6.3-8.0 [facility] Comment on above: Order Comment: Speci men Type: BLOOD SPECIMENOrdering Facility: [facility] Address: [address] [address] Performed By: #### 2 4323-8 ####[facility] LABIA [id number] [place] [address] [place] Sodium [Moles/Vol] 143 mmol/L Normal 136-144 [facility] Comment on above: Order Comment: Speci men Type: BLOOD SPECIMENOrdering Facility: [facility] Address: [address] [address] Performed By: #### 2 4323-8 ####[facility] LABIA [id number] [place] [address] [place] Urea nitrogen [Mass/Vol] 22 mg/dL Normal 9-24 [facility] Comment on above: Order Comment: Speci men Type: BLOOD SPECIMENOrdering Facility: [facility] Address: [address] [place] [address] Performed By: #### 2 4323-8 ####[facility] LABIA [id number] [place] [address] [place] [id number] 11-21-2022 ECG01 Ventricular Rate : 6 5 BPM Atrial Rate : 65 BPM P-R Interval : 180 ms QRS Duration : 98 ms Q-T Interval : 440 ms QTC Calculation(Bazett) : 457 ms Calculated P Lyons : 0 degrees Calculated R Lyons : -10 degrees Calculated T Lyons : 49 degrees NORMAL SINUS RHYTHM NORMAL ECG Confirmed by SHANIA RESTREPO M.D. ([id number]) on 11/22/2022 12:00:34 PM NAME : SUKHDEEP SIMENTAL PID : [id number] : 1965 Gender : Male Race : ORD : Procedure Date : Nov 21 2022 10:59:49 Edit Date : Nov 22 2022 12:00:38 Diagnosis: NORMAL SINUS RHYTHM NORMAL ECG Confirmed by SHANIA RESTREPO M.D. ([id number]) on 11/22/2022 12:00:34 PM Test Reason : SURGERY Location : [facility] : [facility] Overread By : SHANIA RESTREPO M.D. Edited By : SHANIA RESTREPO M.D. Referred By : THOMAS MATHEW Acquired by : Santiago DANIELLE [facility] HISTORY PHYSICALon HISTORY PHYSICAL HNO ID: [id number] Author: Maite Galloway APRN.SPEECH LANGUAGE PATHOLOGIST PRN Service: ? Author Type: Nurse Practitioner Type: [...] pain. Skin: (more content not included)... Normal [facility] HbA1c (Bld)on 11-21-2022 Average glucose Estimated from glycated hemoglobin (Bld) [Mass/Vol] 111 mg/dL Normal [facility] Comment on above: Order Comment: Shahrzad dumont Type: BLOOD SPECIMENOrdering Facility: [facility] Address: [address] [address] Result Comment: eAG: (Estimated average glucose) is a calculated value from HgbA1c and is accounts receivable representative of the average blood glucose level in the last 2-3 month period. Performed By: #### 5 5454-3 ####[facility] LABCLIA [id number] [facility] [id number] [place] [address] [place] HbA1c (Bld) [Mass fraction] 5.5 % Normal 4.3-5.6 [facility] Comment on above: Order Comment: Shahrzad dumont Type: BLOOD SPECIMENOrdering Facility: [facility] Address: [address] [address] Result Comment: [place] Diabetes Association guidelines indicate that patients with HgbA1c in the range 5.7-6.4% are at increased risk for development of diabetes, and intervention by lifestyle modification may be beneficial. HgbA1c greater or equal to 6.5% is considered diagnostic of diabetes. Performed By: #### 5 5454-3 ####[facility] LABCLIA [id number] [address] TYPE AND SCREEN,30 DAYon ABO A Normal [facility] Comment on above: Order Comment: Speci men Type: BLOOD SPECIMENOrdering Facility: [facility] Address: [address] [place] [address] Performed By: #### T SCR30 ####[facility] BLOOD BANKCLIA [id number] [address] HISTORICAL AB SCR STATUS Negative Normal [facility] Comment on above: Order Comment: Speci men Type: BLOOD SPECIMENOrdering Facility: [facility] Address: [address] [place] [address] Performed By: #### T SCR30 ####[facility] BLOOD BANKCLIA [id number] [address] Rh Nom (Bld) Negative Normal [facility] Comment on above: Order Comment: Speci men Type: BLOOD SPECIMENOrdering Facility: [facility] Address: [address] [place] [address] Performed By: #### T SCR30 ####[facility] BLOOD BANKIA [id number] [address] ABD/PELVIS WO CONon 07-06 CT [...] by: OBIE TSE Date: 2022-07-06 13:19 Normal [facility] PTH INTACTon 06-12-2022 PTH, Intact 38 pg/mL Normal 15-65 [facility] Comment on above: Performed By: #### P T #### [facility] [address] [place] [address] Dr. Hugh Landis FERRITINon 06-11-2022 Ferritin [Mass/Vol] 96.0 ng/mL Normal 26.0-388.0 [facility] Comment on above: Performed By: #### P T #### [facility] [address] [place] [address] Dr. Hugh Landis HEMOGRAM AND PLATELon 2022 Hematocrit (Bld) [Volume fraction] 39.1 % Critically low 42.0-54.0 [facility] Comment on above: Performed By: #### H H #### [facility] [address] [address] [address] Hugh Landis Hemoglobin (Bld) [Mass/Vol] 13.3 g/dL Critically low 14.0-18.0 [facility] Comment on above: Performed By: #### H H #### [facility] [address] [place] [address] Dr. Hugh Landis MCH (RBC) [Entitic mass] 30.5 pg Normal 25.9-34.0 [facility] Comment on above: Performed By: #### H H #### [facility] [address] [address] [address] Hugh Landis MCHC (RBC) [Mass/Vol] 34.0 g/dL Normal 29.9-35.2 [facility] Comment on above: Performed By: #### H H #### [facility] [address] [address] [address] Hugh Landis MCV (RBC) [Entitic vol] 89.7 fL Normal 80.0-94.0 [facility] Comment on above: Performed By: #### H H #### [facility] [address] [place] [address] Dr. Hugh Landis PLT 230 103/ul Normal 150-450 [facility] Comment on above: Performed By: #### H H #### [facility] [address] [place] [address] Dr. Hugh Landis RBC 4.36 106/ul Critically low 4.70-6.[address] [facility] Comment on above: Performed By: #### H H #### [facility] [address] [address] [address] Hugh Landis WBC 4.8 103/ul Normal 4.0-11.0 [facility] Comment on above: Performed By: #### H H #### [facility] [address] [place] [address] Dr. Hugh Landis IRON AND TIBCon 06-11-2022 % SATURATION 55.0 % Normal [facility] Comment on above: Performed By: #### P T #### [facility] [address] [place] [address] Dr. Hugh Landis Iron [Mass/Vol] 137.0 ug/dL Normal 65.0-175.0 [facility] Comment on above: Performed By: #### P T #### [facility] [address] [address] [address] Hugh Landis TIBC DIRECT 249.0 ug/dL Critically low 250.0-450.0 [facility] Comment on above: Performed By: #### P T #### [facility] [address] [address] [address] Hugh Landis MAGNESIUMon 06-11-2022 Magnesium [Mass/Vol] 1.9 mg/dL Normal 1.8-2.4 [facility] Comment on above: Performed By: #### P TT #### [facility] [address] [place] [address] Dr. Hugh Landis RENAL FUNCTION PANELon 06-11 Albumin [Mass/Vol] 3.5 g/dL Normal 3.4-5.0 [facility] Comment on above: Performed By: #### P TT #### [facility] [address] [address] [address] Hugh Landis Calcium [Mass/Vol] 9.5 mg/dL Normal 8.5-10.1 [facility] Comment on above: Performed By: #### P TT #### [facility] [address] [place] [address] Dr. Hugh Landis Chloride [Moles/Vol] 107 mmol/L Normal 98-107 [facility] Comment on above: Performed By: #### P TT #### [facility] [address] [address] [address] Hugh Landis CO2 [Moles/Vol] 30.9 mmol/L Normal 21.0-32.0 [facility] Comment on above: Performed By: #### P TT #### [facility] [address] [place] [address] Dr. Hugh Landis Creatinine [Mass/Vol] 1.41 mg/dL Critically high 0.70-1.30 [facility] Comment on above: Performed By: #### P TT #### [facility] [address] [address] [address] Hugh Landis EGFR-AF PALESTINIAN >60 Normal >=60 [facility] Comment on above: Performed By: #### P TT #### [facility] [address] [place] [address] Dr. Hugh Landis EGFR-NON AF PALESTINIAN 52 mL/min/1.73m2 Critically low >=60 [facility] Comment on above: Performed By: #### P TT #### [facility] [address] [address] [address] Hugh Landis Glucose [Mass/Vol] 118 mg/dL Critically high 74-106 [facility] Comment on above: Performed By: #### P TT #### [facility] [address] [address] [address] Hugh Landis Phosphate [Mass/Vol] 3.0 mg/dL Normal 2.6-4.7 [facility] Comment on above: Performed By: #### P TT #### [facility] [address] [address] [address] Hugh Landis Potassium [Moles/Vol] 3.9 mmol/L Normal 3.5-5.1 [facility] Comment on above: Performed By: #### P TT #### [facility] [address] [address] [address] Hugh Landis Sodium [Moles/Vol] 143 mmol/L Normal 136-145 [facility] Comment on above: Performed By: #### P TT #### [facility] [address] [address] [address] Hugh Landis Urea nitrogen [Mass/Vol] 19.0 mg/dL Critically high 7.0-18.0 [facility] Comment on above: Performed By: #### P TT #### [facility] [address] [address] [address] Hugh Landis UA RANDOM W/MICROSCOPICon BACTERIA NONE SEEN Normal NONE SEEN [facility] Comment on above: Performed By: #### P T #### [facility] [address] [address] [address] Hugh Landis Bilirubin Ql (U) Negative Normal NEGATIVE [facility] Comment on above: Performed By: #### P T #### [facility] [address] [address] [address] Hugh Landis CAST NONE SEEN Normal NONE SEEN [facility] Comment on above: Performed By: #### P T #### [facility] [address] [address] [address] Hugh Landis Clarity (U) CLEAR Normal CLEAR [facility] Comment on above: Performed By: #### P T #### [facility] [address] [address] [address] Hugh Landis Color (U) YELLOW Normal YELLOW [facility] Comment on above: Performed By: #### P T #### [facility] [address] [address] [address] Hugh Landis Crystals LM Nom (Urine sed) NONE SEEN Normal NONE SEEN [facility] Comment on above: Performed By: #### P T #### [facility] [address] [address] [address] Hugh Landis Epithelial cells LM Ql (Urine sed) FEW Abnormal NONE SEEN /RARE [facility] Comment on above: Performed By: #### P T #### [facility] [address] [place] [address] Dr. Hugh Landis Glucose Ql (U) Negative Normal NEGATIVE [facility] Comment on above: Performed By: #### P T #### [facility] [address] [address] [address] Hugh Landis Hemoglobin Ql (U) Negative Normal NEGATIVE [facility] Comment on above: Performed By: #### P T #### [facility] [address] [place] [address] Dr. Hugh Landis Ketones Ql (U) TRACE Abnormal NEGATIVE [facility] Comment on above: Performed By: #### P T #### [facility] [address] [address] [address] Hugh Landis LEUKOCYTES Negative Normal NEGATIVE [facility] Comment on above: Performed By: #### P T #### [facility] [address] [address] [address] Hugh Landis MUCOUS MODERATE Abnormal NONE SEEN [facility] Comment on above: Performed By: #### P T #### [facility] [address] [place] [address] Dr. Hugh Landis Nitrite Ql (U) Negative Normal NEGATIVE [facility] Comment on above: Performed By: #### P T #### [facility] [address] [place] [address] Dr. Hugh Landis pH (U) 5.0 [pH] Normal 5-9 [facility] Comment on above: Performed By: #### P T #### [facility] [address] [place] [address] Dr. Hugh Landis RBC NONE SEEN Abnormal 0-2 [facility] Comment on above: Performed By: #### P T #### [facility] [address] [place] [address] Dr. Hugh Landis SPEC GRAVITY 1.025 Normal 1.005-<=1.02 5 [facility] Comment on above: Performed By: #### P T #### [facility] [address] [place] [address] Dr. Hugh Landis UA PROTEIN TRACE Normal NEGATIVE/ TRACE [facility] Comment on above: Performed By: #### P T #### [facility] [address] [place] [address] Dr. Hugh Landis Urobilinogen Qn (U) 0.2 {Dahiana'U}/dL Normal 0.2 - 1. 0 [facility] Comment on above: Performed By: #### P T #### [facility] [address] [place] [address] Dr. Hugh Landis WBC NONE SEEN Normal NONE SEEN [facility] Comment on above: Performed By: #### P T #### [facility] [address] [place] [address] Dr. Hugh Landis URIC ACID SERUMon 06-11-2022 Urate [Mass/Vol] 7.5 mg/dL Critically high 3.5-7.2 [facility] Comment on above: Performed By: #### P TT #### [facility] [address] [place] [address] Dr. Hugh Landis VITAMIN D 25 OHon 06-11-2022 VIT D 25-OH 35.0 ng/mL Normal [facility] Comment on above: Performed By: #### P T #### [facility] [address] [place] [address] Dr. Hugh Landis VIT D RANGES SEE BELOW Normal [facility] Comment on above: Result Comment: <20 ng/mL Vit D deficient 20 - <30 ng/mL Vit D insufficient 30 - 100 ng/mL Vit D sufficient >100 ng/mL Potential Toxicity Performed By: #### P T #### [facility] [address] [place] [address] Dr. Hugh Landis PROTIMEon 03-15-2022 INR Coag (PPP) [Relative time] 1.11 {INR} Normal [facility] Comment on above: Performed By: #### P T #### [facility] [address] [place] [address] Dr. Hugh Landis INR GUIDELINES SEE BELOW Normal [facility] Comment on above: Result Comment: VIC RED INR: 2.0 - 3.0 CONDITIONS NOT LISTED BELOW 2.5 - 3.5 FOR PROSTHETIC HEART VALVE REPLACEMENT 2.5 - 3.5 RECURRENT THROMBOSIS Performed By: #### P T #### [facility] [address] [place] [address] Dr. Hugh Landis PT Coag (PPP) [Time] 11.7 s Critically high 9.0-11.6 [facility] Comment on above: Performed By: #### P T #### [facility] [address] [place] [address] Dr. Hugh Landis UA (CLEAN/CATCH) SLOT SHIFT SUPERVISOR/MICRO I F IND.on 03-15-2022 Bilirubin Ql (U) Negative Normal NEGATIVE [facility] Comment on above: Performed By: #### P TT #### [facility] [address] [place] [address] Dr. Hugh Landis Clarity (U) CLEAR Normal CLEAR [facility] Comment on above: Performed By: #### P TT #### [facility] [address] [place] [address] Dr. Hugh Landis Color (U) YELLOW Normal YELLOW [facility] Comment on above: Performed By: #### P TT #### [facility] [address] [place] [address] Dr. Hugh Landis Glucose Ql (U) Negative Normal NEGATIVE [facility] Comment on above: Performed By: #### P TT #### [facility] [address] [place] [address] Dr. Hugh Landis Hemoglobin Ql (U) SMALL Abnormal NEGATIVE [facility] Comment on above: Performed By: #### P TT #### [facility] [address] [address] [address] Hugh Landis Ketones Ql (U) Negative Normal NEGATIVE [facility] Comment on above: Performed By: #### P TT #### [facility] [address] [place] [address] Dr. Hugh Landis LEUKOCYTES Negative Normal NEGATIVE [facility] Comment on above: Performed By: #### P TT #### [facility] [address] [place] [address] Dr. Hugh Landis Nitrite Ql (U) Negative Normal NEGATIVE [facility] Comment on above: Performed By: #### P TT #### [facility] [facility] [address] [place] [address] Dr. Hugh Landis pH (U) 5.5 [pH] Normal 5-9 [facility] Comment on above: Performed By: #### P TT #### [facility] [address] [place] [address] Dr. Hugh Landis SPEC GRAVITY 1.025 Normal 1.005-<=1.02 5 [facility] Comment on above: Performed By: #### P TT #### [facility] [address] [place] [address] Dr. Hugh Landis UA PROTEIN Negative Normal NEGATIVE/ TRACE [facility] Comment on above: Performed By: #### P TT #### [facility] [address] [place] [address] Dr. Hugh Landis UR MICRO IND INDICATED Normal [facility] Comment on above: Performed By: #### P TT #### [facility] [address] [place] [address] Dr. Hugh Landis Urobilinogen Qn (U) 0.2 {Dahiana'U}/dL Normal 0.2 - 1. 0 [facility] Comment on above: Performed By: #### P TT #### [facility] [address] [place] [address] Dr. Hugh Landis URINE MICROSCOPIC ONLYon BACTERIA TRACE Abnormal NONE SEEN [facility] Comment on above: Performed By: #### P TT #### [facility] [address] [place] [address] Dr. Hugh Landis Bacteria identified Cx Nom (U) NOT INDICATED Normal [facility] Comment on above: Performed By: #### P TT #### [facility] [address] [place] [address] Dr. Hugh Landis CAST NONE SEEN Normal NONE SEEN [facility] Comment on above: Performed By: #### P TT #### [facility] [address] [place] [address] Dr. Hugh Landis Crystals LM Nom (Urine sed) NONE SEEN Normal NONE SEEN [facility] Comment on above: Performed By: #### P TT #### [facility] [address] [place] [address] Dr. Hugh Landis Epithelial cells LM Ql (Urine sed) RARE Normal NONE SEEN /RARE [facility] Comment on above: Performed By: #### P TT #### [facility] [address] [place] [address] Dr. Hugh Landis MUCOUS NONE SEEN Normal NONE SEEN [facility] Comment on above: Performed By: #### P TT #### [facility] [address] [place] [address] Dr. Hugh Landis RBC 0-2 Normal 0-2 [facility] Comment on above: Performed By: #### P TT #### [facility] [address] [place] [address] Dr. Hugh Landis WBC 0-2 Abnormal NONE SEEN [facility] Comment on above: Performed By: #### P TT #### [facility] [address] [place] [address] Dr. Hugh Landis MRSA NARES #1on 03-08-2022 MRSA NARES #1 Culture Observations : NO GROWTH OF MRSA AT 48 HOURS. Normal [facility] Comment on above: Performed By: #### B MP #### [facility] [address] [address] [address] Hugh Landis PROF CHEM 8 (BAS METB)on Anion gap [Moles/Vol] 9.9 mmol/L Normal [facility] Comment on above: Performed By: #### C MP, LIPID, TSH #### [facility] [address] [address] [address] Hugh Landis Calcium [Mass/Vol] 9.4 mg/dL Normal 8.5-10.1 [facility] Comment on above: Performed By: #### C MP, LIPID, TSH #### [facility] [address] [address] [address] Hugh Landis Chloride [Moles/Vol] 103 mmol/L Normal 98-107 [facility] Comment on above: Performed By: #### C MP, LIPID, TSH #### [facility] [address] [place] [address] Dr. Hugh Landis CO2 [Moles/Vol] 31.6 mmol/L Normal 21.0-32.0 [facility] Comment on above: Performed By: #### C MP, LIPID, TSH #### [facility] [address] [address] [address] Hugh Landis Creatinine [Mass/Vol] 1.25 mg/dL Normal 0.70-1.30 [facility] Comment on above: Performed By: #### C MP, LIPID, TSH #### [facility] [address] [place] [address] Dr. Hugh Landis EGFR-AF PALESTINIAN >60 Normal >=60 [facility] Comment on above: Performed By: #### C MP, LIPID, TSH #### [facility] [address] [address] [address] Hugh Landis EGFR-NON AF PALESTINIAN 59 mL/min/1.73m2 Critically low >=60 [facility] Comment on above: Performed By: #### C MP, LIPID, TSH #### [facility] [address] [address] [address] Hugh Landis Glucose [Mass/Vol] 110 mg/dL Critically high 74-106 [facility] Comment on above: Performed By: #### C MP, LIPID, TSH #### [facility] [address] [place] [address] Dr. Hugh Landis Potassium [Moles/Vol] 3.5 mmol/L Normal 3.5-5.1 [facility] Comment on above: Performed By: #### C MP, LIPID, TSH #### [facility] [address] [place] [address] Dr. Hugh Landis Sodium [Moles/Vol] 141 mmol/L Normal 136-145 [facility] Comment on above: Performed By: #### C MP, LIPID, TSH #### [facility] [address] [place] [address] Dr. Hugh Landis Urea nitrogen [Mass/Vol] 27.0 mg/dL Critically high 7.0-18.0 [facility] Comment on above: Performed By: #### C MP, LIPID, TSH #### [facility] [address] [place] [address] Dr. Hugh Landis Urea nitrogen/Creatinine [Mass ratio] 21.6 mg/mg Normal [facility] Comment on above: Performed By: #### C MP, LIPID, TSH #### [facility] [address] [place] [address] Dr. Hugh Landis PTTon 03-08-2022 aPTT Coag (Bld) [Time] 27.0 s Normal 22.3-36.2 [facility] Comment on above: Performed By: #### P TT #### [facility] [address] [place] [address] Dr. Hugh Landis INSULINon 01-25-2022 Insulin 11.1 uIU/mL Normal 2.6-24.9 [facility] Comment on above: Performed By: #### U TOMAS, TSH, CMP, LIPID, T7 #### [facility] [address] [place] [address] Dr. Hugh Landis CBC AUTO DIFFon 01-24-2022 BASO # 0.1 103/ul Normal 0.0-0.1 [facility] Comment on above: Performed By: #### C MP, LIPID, TSH #### [facility] [address] [place] [address] Dr. Hugh Landis Basophils/100 WBC (Bld) 1.3 % Normal 0.2-2.0 [facility] Comment on above: Performed By: #### C MP, LIPID, TSH #### [facility] [address] [place] [address] Dr. Hugh Landis EO # 0.2 103/ul Normal 0.0-0.7 [facility] Comment on above: Performed By: #### C MP, LIPID, TSH #### [facility] [address] [place] [address] Dr. Hugh Landis Eosinophils/100 WBC (Bld) 4.7 % Normal 0.9-7.0 [facility] Comment on above: Performed By: #### C MP, LIPID, TSH #### [facility] [address] [place] [address] Dr. Hugh Landis Erythrocyte distribution width (RBC) [Ratio] 12.6 % Normal 11.0-15.0 [facility] Comment on above: Performed By: #### C MP, LIPID, TSH #### [facility] [address] [place] [address] Dr. Hugh Landis Hematocrit (Bld) [Volume fraction] 39.1 % Critically low 42.0-54.0 [facility] Comment on above: Performed By: #### C MP, LIPID, TSH #### [facility] [address] [place] [address] Dr. Hugh Landis Hemoglobin (Bld) [Mass/Vol] 12.4 g/dL Critically low 14.0-18.0 [facility] Comment on above: Performed By: #### C MP, LIPID, TSH #### [facility] [address] [place] [address] Dr. Hugh Landis IG # 0.01 10e3/ul Normal 0.00-0.03 [facility] Comment on above: Performed By: #### C MP, LIPID, TSH #### [facility] [address] [place] [address] Dr. Hugh Landis IG % 0.2 % Normal 0.0-0.5 [facility] Comment on above: Performed By: #### C MP, LIPID, TSH #### [facility] [address] [place] [address] Dr. Hugh Landis LYMPH # 0.9 103/ul Critically low 1.2-3.8 [facility] Comment on above: Performed By: #### C MP, LIPID, TSH #### [facility] [address] [place] [address] Dr. Hugh Landis Lymphocytes/100 WBC (Bld) 19.4 % Critically low 20.5-60.0 [facility] Comment on above: Performed By: #### C MP, LIPID, TSH #### [facility] [address] [place] [address] Dr. Hugh Landis MANUAL DIFF REQ NO Normal [facility] Comment on above: Performed By: #### C MP, LIPID, TSH #### [facility] [address] [place] [address] Dr. Hugh Landis MCH (RBC) [Entitic mass] 29.2 pg Normal 25.9-34.0 [facility] Comment on above: Performed By: #### C MP, LIPID, TSH #### [facility] [address] [place] [address] Dr. Hugh Landis MCHC (RBC) [Mass/Vol] 31.7 g/dL Normal 29.9-35.2 [facility] Comment on above: Performed By: #### C MP, LIPID, TSH #### [facility] [address] [place] [address] Dr. Hugh Landis MCV (RBC) [Entitic vol] 92.0 fL Normal 80.0-94.0 [facility] Comment on above: Performed By: #### C MP, LIPID, TSH #### [facility] [address] [place] [address] Dr. Hugh Landis MONO # 0.5 103/ul Normal 0.3-0.8 [facility] Comment on above: Performed By: #### C MP, LIPID, TSH #### [facility] [address] [address] [address] Hugh Landis Monocytes/100 WBC (Bld) 9.6 % Normal 1.7-12.0 [facility] Comment on above: Performed By: #### C MP, LIPID, TSH #### [facility] [address] [address] [address] Hugh Landis NEUT # 3.0 103/ul Normal 1.4-6.5 [facility] Comment on above: Performed By: #### C MP, LIPID, TSH #### [facility] [address] [place] [address] Dr. Hugh Landis Neutrophils/100 WBC (Bld) 64.8 % Normal 43.0-75.0 [facility] Comment on above: Performed By: #### C MP, LIPID, TSH #### [facility] [address] [place] [address] Dr. Hugh Landis Platelet mean volume (Bld) [Entitic vol] 9.4 fL Critically low 9.5-13.5 [facility] Comment on above: Performed By: #### C MP, LIPID, TSH #### [facility] [address] [place] [address] Dr. Hugh Landis PLT 232 103/ul Normal 150-450 [facility] Comment on above: Performed By: #### C MP, LIPID, TSH #### [facility] [address] [place] [address] Dr. Hugh Landis RBC 4.25 106/ul Critically low 4.70-6.10 [facility] Comment on above: Performed By: #### C MP, LIPID, TSH #### [facility] [address] [place] [address] Dr. Hugh Landis WBC 4.7 103/ul Normal 4.0-11.0 [facility] Comment on above: Performed By: #### C MP, LIPID, TSH #### [facility] [address] [place] [address] Dr. Hugh Landis FREE THYROXINE INDEX T7on FTI 2.65 Normal 1.30-4.50 [facility] Comment on above: Performed By: #### B MP #### [facility] [address] [address] [address] Hugh Landis T3U 34.0 % Normal 33.0-40.0 [facility] Comment on above: Performed By: #### B MP #### [facility] [address] [address] [address] Hugh Landis T4 [Mass/Vol] 7.80 ug/dL Normal 4.50-12.10 [facility] Comment on above: Performed By: #### B MP #### [facility] [address] [place] [address] Dr. Hugh Landis GLYCOHEMOGLOBIN A1Con 2021 ADA RECOMMENDATION SEE BELOW Normal [facility] Comment on above: Result Comment: ADA RECOMMENDED LIMIT 4.0 - 6.0 ADA THERAPEUTIC TARGET < 7.0 ACTION SUGGESTED > 7.0 Performed By: #### C MP, LIPID, TSH #### [facility] [address] [place] [address] Dr. Hugh Landis Glucose [Mass/Vol] 123 mg/dL Normal [facility] Comment on above: Performed By: #### C MP, LIPID, TSH #### [facility] [address] [place] [address] Dr. Hugh Landis HbA1c (Bld) [Mass fraction] 5.9 % Normal 4.5-6.2 [facility] Comment on above: Performed By: #### C MP, LIPID, TSH #### [facility] [address] [place] [address] Dr. Hugh Landis LIPID PROFILEon 01-24-2022 CHOL-HDL RATIO NORM SEE BELOW Normal [facility] Comment on above: Result Comment: 3.3 - 4.4 LOW RISK 4.4 - 7.1 AVERAGE RISK 7.1 - 11.0 MODERATE RISK >11.0 HIGH RISK Performed By: #### U TOMAS, TSH, CMP, LIPID, T7 #### [facility] [address] [place] [address] Dr. Hugh Landis Cholesterol [Mass/Vol] 179 mg/dL Normal <=200 [facility] Comment on above: Performed By: #### U TOMAS, TSH, CMP, LIPID, T7 #### [facility] [address] [address] [address] Hugh Landis Cholesterol in HDL [Mass/Vol] 46 mg/dL Normal 40-60 [facility] Comment on above: Performed By: #### U TOMAS, TSH, CMP, LIPID, T7 #### [facility] [address] [address] [address] Hugh Landis Cholesterol in LDL [Mass/Vol] 100.4 mg/dL Normal [facility] Comment on above: Performed By: #### U TOMAS, TSH, CMP, LIPID, T7 #### [facility] [address] [address] [address] Hugh Landis Cholesterol.total/Ch olesterol in HDL [Mass ratio] 3.9 {ratio} Normal [facility] Comment on above: Performed By: #### U TOMAS, TSH, CMP, LIPID, T7 #### [facility] [address] [address] [address] Hugh Landis HDL NORMAL > or = 60 mg/dl - LO W CARDIOVASCULAR RISK <40 mg/dl - HIGH CARDIOVASCULAR RISK Normal [facility] Comment on above: Performed By: #### U TOMAS, TSH, CMP, LIPID, T7 #### [facility] [address] [address] [address] Hugh Landis LDL CALC NORMAL SEE BELOW Normal [facility] Comment on above: Result Comment: <100 mg/dl OPTIMAL 100 - 129 mg/dl NEAR OR ABOVE OPTIMAL 130 - 159 mg/dl BORDERLINE HIGH 160 - 189 mg/dl HIGH >190 mg/dl VERY HIGH Performed By: #### U TOMAS, TSH, CMP, LIPID, T7 #### [facility] [address] [address] [address] Hugh Landis Triglyceride [Mass/Vol] 163 mg/dL Critically high <=150 [facility] Comment on above: Performed By: #### U TOMAS, TSH, CMP, LIPID, T7 #### [facility] [address] [address] [address] Hugh Landis VLDL CALC 32.6 mg/dL Normal [facility] Comment on above: Performed By: #### U TOMAS, TSH, CMP, LIPID, T7 #### [facility] [address] [address] [address] Hugh Landis PROF 14(COMP METB)on 022 Albumin [Mass/Vol] 3.6 g/dL Normal 3.4-5.0 [facility] Comment on above: Performed By: #### U TOMAS, TSH, CMP, LIPID, T7 #### [facility] [address] [address] [address] Hugh Landis Albumin/Globulin [Mass ratio] 0.9 {ratio} Normal [facility] Comment on above: Performed By: #### U TOMAS, TSH, CMP, LIPID, T7 #### [facility] [address] [place] [address] Dr. Hugh Landis ALP [Catalytic activity/Vol] 81 U/L Normal 46-116 [facility] Comment on above: Performed By: #### U TOMAS, TSH, CMP, LIPID, T7 #### [facility] [address] [address] [address] Hugh Landis ALT [Catalytic activity/Vol] 19 U/L Normal 16-63 [facility] Comment on above: Performed By: #### U TOMAS, TSH, CMP, LIPID, T7 #### [facility] [address] [address] [address] Hugh Landis Anion gap [Moles/Vol] 13.4 mmol/L Normal [facility] Comment on above: Performed By: #### U TOMAS, TSH, CMP, LIPID, T7 #### [facility] [address] [address] [address] Hugh Landis AST [Catalytic activity/Vol] 16 U/L Normal 15-37 [facility] Comment on above: Performed By: #### U TOMAS, TSH, CMP, LIPID, T7 #### [facility] [address] [address] [address] Hugh Landis Bilirubin [Mass/Vol] 0.5 mg/dL Normal 0.2-1.0 [facility] Comment on above: Performed By: #### U TOMAS, TSH, CMP, LIPID, T7 #### [facility] [address] [address] [address] Hugh Landis Calcium [Mass/Vol] 9.7 mg/dL Normal 8.5-10.1 [facility] Comment on above: Performed By: #### U TOMAS, TSH, CMP, LIPID, T7 #### [facility] [address] [address] [address] Hugh Landis Chloride [Moles/Vol] 105 mmol/L Normal 98-107 [facility] Comment on above: Performed By: #### U TOMAS, TSH, CMP, LIPID, T7 #### [facility] [address] [address] [address] Hugh Landis CO2 [Moles/Vol] 27.4 mmol/L Normal 21.0-32.0 [facility] Comment on above: Performed By: #### U TOMAS, TSH, CMP, LIPID, T7 #### [facility] [address] [address] [address] Hugh Landis Creatinine [Mass/Vol] 1.37 mg/dL Critically high 0.70-1.30 [facility] Comment on above: Performed By: #### U TOMAS, TSH, CMP, LIPID, T7 #### [facility] [address] [place] [address] Dr. Hugh Landis EGFR-AF PALESTINIAN >60 Normal >=60 [facility] Comment on above: Performed By: #### U TOMAS, TSH, CMP, LIPID, T7 #### [facility] [address] [address] [address] Hugh Landis EGFR-NON AF PALESTINIAN 53 mL/min/1.73m2 Critically low >=60 [facility] Comment on above: Performed By: #### U TOMAS, TSH, CMP, LIPID, T7 #### [facility] [address] [address] [address] Hugh Landis Globulin (S) [Mass/Vol] 4.0 g/dL Normal [facility] Comment on above: Performed By: #### U TOMAS, TSH, CMP, LIPID, T7 #### [facility] [address] [address] [address] Hugh Landis Glucose [Mass/Vol] 113 mg/dL Critically high 74-106 [facility] Comment on above: Performed By: #### U TOMAS, TSH, CMP, LIPID, T7 #### [facility] [address] [place] [address] Dr. Hugh Landis Potassium [Moles/Vol] 3.8 mmol/L Normal 3.5-5.1 [facility] Comment on above: Performed By: #### U TOMAS, TSH, CMP, LIPID, T7 #### [facility] [address] [address] [address] Hugh Landis Protein [Mass/Vol] 7.6 g/dL Normal 6.4-8.2 [facility] Comment on above: Performed By: #### U TOMAS, TSH, CMP, LIPID, T7 #### [facility] [address] [place] [address] Dr. Hugh Landis Sodium [Moles/Vol] 142 mmol/L Normal 136-145 [facility] Comment on above: Performed By: #### U TOMAS, TSH, CMP, LIPID, T7 #### [facility] [address] [address] [address] Hugh Landis Urea nitrogen [Mass/Vol] 21.0 mg/dL Critically high 7.0-18.0 [facility] Comment on above: Performed By: #### U TOMAS, TSH, CMP, LIPID, T7 #### [facility] [address] [place] [address] Dr. Hugh Landis Urea nitrogen/Creatinine [Mass ratio] 15.3 mg/mg Normal [facility] Comment on above: Performed By: #### U TOMAS, TSH, CMP, LIPID, T7 #### [facility] [address] [place] [address] Dr. Hugh Landis TSHon 01-24-2022 TSH 0.663 uIU/mL Normal 0.358-3.740 [facility] Comment on above: Performed By: #### U TOMAS, TSH, CMP, LIPID, T7 #### [facility] [address] [place] [address] Dr. Hugh Landis URIC ACID SERUMon 01-24-2022 Urate [Mass/Vol] 6.9 mg/dL Normal 3.5-7.2 [facility] Comment on above: Performed By: #### B MP #### [facility] [address] [place] [address] Dr. Hugh Landis VITAMIN D 25 OHon 01-24-2022 VIT D 25-OH 37.0 ng/mL Normal [facility] Comment on above: Performed By: #### P TT #### [facility] [address] [place] [address] Dr. Hugh Landis VIT D RANGES SEE BELOW Normal [facility] Comment on above: Result Comment: <20 ng/mL Vit D deficient 20 - <30 ng/mL Vit D insufficient 30 - 100 ng/mL Vit D sufficient >100 ng/mL Potential Toxicity Performed By: #### P TT #### [facility] [address] [place] [address] Dr. Hugh Landis US KIDNEYSon 12-21-2021 US [...] by: OBIE TSE Date: 2021-12-21 17:34 Normal [facility] XR ABD FLAT UP_PA [...] by: AUSTIN LARIOS Date: 2021-12-21 18:13 Normal [facility] Urine culture routineOrdered By: Estephanie Lowry on 12-17-2021 Bacteria identified Cx Nom (U) No Growth 2 Days [facility] Chlamydia trachomatis DNA [P resence] in Specimen by MUKUL with probe detectionOrdered By: Estephanei Lowry on 12-15-2021 C. trachomatis DNA MUKUL+probe Ql (Unsp spec) Negative Negative [facility] Chlamydia/GC/Trich NAAon Chlamydia Trachomotis, MUKUL Negative Normal Negative [facility] Comment on above: Order Comment: Reaso n for Exam Dysuria Performed By: #### G CCHLAMTRI #### [facility] , #### CUU #### [facility] [address] [place] [address] [place] Neisseria Gonorrhoeae, MUKUL Negative Normal Negative [facility] Comment on above: Order Comment: Reaso n for Exam Dysuria Performed By: #### G CCHLAMTRI #### [facility] , #### CUU #### [facility] [address] [place] [address] [place] Trichomonas MUKUL Negative Normal Negative [facility] Comment on above: Order Comment: Reaso n for Exam Dysuria Result Comment: Perf ormed at: =G - [facility] [address] [id number] Earring Maker: Shoshana Camargo MD, Phone: [phone] PERFORMED BY: [place] [address] PATHOLOGIST [employer] DEVELOPER SABRA SAUNDERS M.D. Performed By: #### G CCHLAMTRI #### [facility] , #### CUU #### [address] Chlamydia/GC/Trich MUKUL Negative Negative [facility] Other Neisseria gonorrhoeae DNA [P resence] in Specimen by MUKUL with probe detectionOrdered By: Estephanie Lowry on 12-15-2021 N. gonorrhoeae DNA MUKUL+probe Ql (Unsp spec) Negative Negative [facility] Trichomonas vaginalis DNA [P resence] in Specimen by MUKUL with probe detectionOrdered By: Estephanie Lowry on 12-15-2021 T. vaginalis DNA MUKUL+probe Ql (Unsp spec) Negative Negative [facility] Comment on above: Performed at: = - [facility] [address] [id number] Director: Shoshana Camargo MD, Phone: [phone] Urinalysis - AUTOMATEDon Appearance (U) clear [employer] Other Bilirubin Ql (U) Negative [employer] Other Color (U) orange [facility] Other Glucose Ql (U) Negative [employer] Other Hemoglobin Ql (U) moderate [employer] Other Ketones Ql (U) Negative [employer] Other Leukocyte esterase Test strip Ql (U) Negative [facility] [facility] Other Nitrite Ql (U) Positive [employer] Other pH (U) 5.5 [pH] [employer] Other Protein Ql (U) Negative [employer] Other Specific gravity (U) [Rel density] 1.015 [facility] [facility] Other Urobilinogen (U) [Mass/Vol] 0.2 mg/dL [facility] [facility] Other Urinalysis - AUTOMATED [facility] Other Urine Cultureon 12-15-2021 Bacteria identified Cx Nom (U) Reason for Exam Dysuria Urine No Growth 2 Days PERFORMED BY: [place] [address] PATHOLOGIST [employer]EL[employer] SABRA SAUNDERS M.D. Normal [facility] Comment on above: Performed By: #### G CCHLAMTRI #### [facility] , #### CUU #### [facility] [address] [place] [address] Bacteria identified Cx Nom (U) [employer] Other CULTURE URINEon 11-24-2021 CULTURE URINE Culture Observations : NO GROWTH. Normal [facility] Comment on above: Performed By: #### B MP #### [facility] [address] [place] [address] Dr. Hugh Landis PROTEIN ELECTROPHERESIS URIN E RANDOMon 11-17-2021 Albumin, U 33.4 % Normal [facility] Comment on above: Performed By: #### C MP, LIPID, TSH #### [facility] [address] [address] [address] Hugh Landis Alpha-1 Globulin U 4.7 % Normal The [facility] Comment on above: Performed By: #### C MP, LIPID, TSH #### [facility] [address] [address] [address] Hugh Landis Alpha-2 Glubulin U 18.6 % Normal [facility] Comment on above: Performed By: #### C MP, LIPID, TSH #### [facility] [address] [address] [address] Hugh Landis Beta Globulin, U 19.9 % Normal The [facility] Comment on above: Performed By: #### C MP, LIPID, TSH #### [facility] [address] [place] [address] Dr. Hugh Landis Gamma Globulin U 23.4 % Normal [facility] Comment on above: Performed By: #### C MP, LIPID, TSH #### [facility] [address] [place] [address] Dr. Hugh Landis M-Tariq, % Not Observed Normal Not Observed [facility] Comment on above: Performed By: #### C MP, LIPID, TSH #### [facility] [address] [place] [address] Dr. Hugh Landis PDF . Normal [facility] Comment on above: Performed By: #### C MP, LIPID, TSH #### [facility] [address] [place] [address] Dr. Hugh Landis Please note: Comment Normal [facility] Comment on above: Result Comment: Prot ein electrophoresis scan will follow via computer, mail, or stamping die maker bench delivery. Performed By: #### C MP, LIPID, TSH #### [facility] [address] [place] [address] Dr. Hugh Landis Protein (U) [Mass/Vol] 4.9 mg/dL Normal Not Estab. [facility] Comment on above: Performed By: #### C MP, LIPID, TSH #### [facility] [address] [place] [address] Dr. Hugh Landis IMMUNOFIXATION(PRINCE),PROTEIN ELEC(PE),FREon 11-16-2021 Albumin [Mass/Vol] 3.4 g/dL Normal 2.9-4.4 [facility] Comment on above: Performed By: #### C MP, LIPID, TSH #### [facility] [address] [place] [address] Dr. Hugh Landis Albumin/Globulin [Mass ratio] 1.0 {ratio} Normal 0.7-1.7 [facility] Comment on above: Performed By: #### C MP, LIPID, TSH #### [facility] [address] [address] [address] Hugh Landis Ukdzf-9-Qbexvkud 0.2 g/dL Normal 0.0-0.4 [facility] Comment on above: Performed By: #### C MP, LIPID, TSH #### [facility] [address] [address] [address] Hugh Landis Lbzae-3-Wqmdnjiv 1.1 g/dL Critically high 0.4-1.0 [facility] Comment on above: Performed By: #### C MP, LIPID, TSH #### [facility] [address] [address] [address] Hugh Landis Beta Globulin 1.0 g/dL Normal 0.7-1.3 The [facility] Comment on above: Performed By: #### C MP, LIPID, TSH #### [facility] [address] [address] [address] Hugh Landis Free [place] Lt Chains,S 35.7 mg/L Critically high 3.3-19.4 [facility] Comment on above: Performed By: #### C MP, LIPID, TSH #### [facility] [address] [address] [address] Hugh Landis Free Lambda Lt Chains,S 21.1 mg/L Normal 5.7-26.3 [facility] Comment on above: Performed By: #### C MP, LIPID, TSH #### [facility] [address] [address] [address] Hugh Landis Gamma Globulin 1.2 g/dL Normal 0.4-1.8 [facility] Comment on above: Performed By: #### C MP, LIPID, TSH #### [facility] [address] [address] [address] Hugh Landis Globulin (S) [Mass/Vol] 3.5 g/dL Normal 2.2-3.9 [facility] Comment on above: Performed By: #### C MP, LIPID, TSH #### [facility] [address] [address] [address] Hugh Landis Immunofixation Result, Serum Comment Normal [facility] Comment on above: Result Comment: No m onoclonality detected. Performed By: #### C MP, LIPID, TSH #### [facility] [address] [address] [address] Hugh Landis Immunoglobulin A, Qn, Serum 228 mg/dL Normal 90-386 [facility] Comment on above: Performed By: #### C MP, LIPID, TSH #### [facility] [address] [address] [address] Hugh Landis Immunoglobulin G, Qn, Serum 1221 mg/dL Normal 603-1613 [facility] Comment on above: Performed By: #### C MP, LIPID, TSH #### [facility] [address] [address] [address] Hugh Landis Immunoglobulin M, Qn, Serum 79 mg/dL Normal 20-172 [facility] Comment on above: Performed By: #### C MP, LIPID, TSH #### [facility] [address] [address] [address] Hugh Landis [place]/Lambda Ratio, S 1.69 Critically high 0.26-1.65 [facility] Comment on above: Performed By: #### C MP, LIPID, TSH #### [facility] [address] [address] [address] Hugh Landis M-Tariq Not Observed Normal Not Observed [facility] Comment on above: Performed By: #### C MP, LIPID, TSH #### [facility] [address] [address] [address] Hugh Landis PDF . Normal [facility] Comment on above: Performed By: #### C MP, LIPID, TSH #### [facility] [address] [address] [address] Hugh Landis Please note: Comment Normal [facility] Comment on above: Result Comment: Prot ein electrophoresis scan will follow via computer, mail, or stamping die maker bench delivery. Performed By: #### C MP, LIPID, TSH #### [facility] [address] [address] [address] Hugh Landis Protein [Mass/Vol] 6.9 g/dL Normal 6.0-8.5 [facility] Comment on above: Performed By: #### C MP, LIPID, TSH #### [facility] [address] [place] [address] Dr. Hugh Landis PROTEIN AND CREA RANDOM UR R ATIOon 11-16-2021 Creatinine, Urine 54.8 mg/dL Normal Not Estab. [facility] Comment on above: Performed By: #### C MP, LIPID, TSH #### [facility] [address] [place] [address] Dr. Hugh Landis Protein (U) [Mass/Vol] 4.1 mg/dL Normal Not Estab. [facility] Comment on above: Performed By: #### C MP, LIPID, TSH #### [facility] [address] [place] [address] Dr. Hugh Landis Protein/Creat Ratio 75 mg/g creat Normal 0-200 [facility] Comment on above: Performed By: #### C MP, LIPID, TSH #### [facility] [address] [place] [address] Dr. Hugh Landis PTH INTACTon 11-15-2021 PTH, Intact 39 pg/mL Normal 15-65 [facility] Comment on above: Performed By: #### P T #### [facility] [address] [place] [address] Dr. Hugh Landis UA RANDOM W/MICROSCOPICon BACTERIA NONE SEEN Normal NONE SEEN [facility] Comment on above: Performed By: #### P TT #### [facility] [address] [place] [address] Dr. Hugh Landis Bilirubin Ql (U) Negative Normal NEGATIVE [facility] Comment on above: Performed By: #### P TT #### [facility] [address] [place] [address] Dr. Hugh Landis CAST NONE SEEN Normal NONE SEEN [facility] Comment on above: Performed By: #### P TT #### [facility] [address] [place] [address] Dr. Hugh Landis Clarity (U) CLEAR Normal CLEAR [facility] Comment on above: Performed By: #### P TT #### [facility] [address] [place] [address] Dr. Hugh Landis Color (U) LT. YELLOW Normal YELLOW [facility] Comment on above: Performed By: #### P TT #### [facility] [address] [address] [address] Hugh Landis Crystals LM Nom (Urine sed) NONE SEEN Normal NONE SEEN [facility] Comment on above: Performed By: #### P TT #### [facility] [address] [place] [address] Dr. Hugh Landis Epithelial cells LM Ql (Urine sed) NONE SEEN Normal NONE SEEN /RARE [facility] Comment on above: Performed By: #### P TT #### [facility] [address] [place] [address] Dr. Hugh Landis Glucose Ql (U) Negative Normal NEGATIVE [facility] Comment on above: Performed By: #### P TT #### [facility] [address] [place] [address] Dr. Hugh Landis Hemoglobin Ql (U) MODERATE Abnormal NEGATIVE [facility] Comment on above: Performed By: #### P TT #### [facility] [address] [place] [address] Dr. Hugh Landis Ketones Ql (U) Negative Normal NEGATIVE [facility] Comment on above: Performed By: #### P TT #### [facility] [address] [place] [address] Dr. Hugh Landis LEUKOCYTES Negative Normal NEGATIVE [facility] Comment on above: Performed By: #### P TT #### [facility] [address] [place] [address] Dr. Hugh Landis MUCOUS NONE SEEN Normal NONE SEEN [facility] Comment on above: Performed By: #### P TT #### [facility] [address] [place] [address] Dr. Hugh Landis Nitrite Ql (U) Negative Normal NEGATIVE [facility] Comment on above: Performed By: #### P TT #### [facility] [address] [place] [address] Dr. Hugh Landis pH (U) 5.5 [pH] Normal 5-9 [facility] Comment on above: Performed By: #### P TT #### [facility] [address] [place] [address] Dr. Hugh Landis RBC 5-10 Abnormal 0-2 [facility] Comment on above: Performed By: #### P TT #### [facility] [address] [place] [address] Dr. Hugh Landis SPEC GRAVITY 1.010 Normal 1.005-<=1.02 5 [facility] Comment on above: Performed By: #### P TT #### [facility] [address] [place] [address] Dr. Hugh Landis UA PROTEIN Negative Normal NEGATIVE/ TRACE [facility] Comment on above: Performed By: #### P TT #### [facility] [address] [place] [address] Dr. Hugh Landis Urobilinogen Qn (U) 0.2 {Dahiana'U}/dL Normal 0.2 - 1. 0 [facility] Comment on above: Performed By: #### P TT #### [facility] [address] [place] [address] Dr. Hugh Landis WBC 0-2 Abnormal NONE SEEN [facility] Comment on above: Performed By: #### P TT #### [facility] [address] [place] [address] Dr. Hugh Landis URINE T PROTEIN CREAT RATIOo n 11-15-2021 Protein (U) [Mass/Vol] 10.0 mg/dL Normal <=12.0 [facility] Comment on above: Performed By: #### B MP #### [facility] [address] [place] [address] Dr. Hugh Landis UR PROT CREAT RAT 0.18 Normal [facility] Comment on above: Performed By: #### B MP #### [facility] [address] [place] [address] Dr. Hugh Landis URINE CREAT 57.11 mg/dL Normal 20.00-300.00 [facility] Comment on above: Performed By: #### B MP #### [facility] [address] [address] [address] Hugh Landis FERRITINon 11-14-2021 Ferritin [Mass/Vol] 95.0 ng/mL Normal 26.0-388.0 [facility] Comment on above: Performed By: #### C MP, LIPID, TSH #### [facility] [address] [address] [address] Hugh Landis HEMOGRAM AND PLATELon 2021 Hematocrit (Bld) [Volume fraction] 35.7 % Critically low 42.0-54.0 [facility] Comment on above: Performed By: #### U TOMAS, TSH, CMP, LIPID, T7 #### [facility] [address] [address] [address] Hugh Landis Hemoglobin (Bld) [Mass/Vol] 11.5 g/dL Critically low 14.0-18.0 [facility] Comment on above: Performed By: #### U TOMAS, TSH, CMP, LIPID, T7 #### [facility] [address] [address] [address] Hugh Landis MCH (RBC) [Entitic mass] 30.3 pg Normal 25.9-34.0 [facility] Comment on above: Performed By: #### U TOMAS, TSH, CMP, LIPID, T7 #### [facility] [address] [place] [address] Dr. Hugh Landis MCHC (RBC) [Mass/Vol] 32.2 g/dL Normal 29.9-35.2 [facility] Comment on above: Performed By: #### U TOMAS, TSH, CMP, LIPID, T7 #### [facility] [address] [address] [address] Hugh Landis MCV (RBC) [Entitic vol] 93.9 fL Normal 80.0-94.0 [facility] Comment on above: Performed By: #### U TOMAS, TSH, CMP, LIPID, T7 #### [facility] [address] [address] [address] Hugh Landis PLT 254 103/ul Normal 150-450 [facility] Comment on above: Performed By: #### U TOMAS, TSH, CMP, LIPID, T7 #### [facility] [address] [address] [address] Hugh Landis RBC 3.80 106/ul Critically low 4.70-6.10 [facility] Comment on above: Performed By: #### U TOMAS, TSH, CMP, LIPID, T7 #### [facility] [address] [address] [address] Hugh Landis WBC 6.4 103/ul Normal 4.0-11.0 [facility] Comment on above: Performed By: #### U TOMAS, TSH, CMP, LIPID, T7 #### [facility] [address] [place] [address] Dr. Hugh Landis IRON AND TIBCon 11-14-2021 % SATURATION 27.6 % Normal [facility] Comment on above: Performed By: #### C MP, LIPID, TSH #### [facility] [address] [address] [address] Hugh Landis Iron [Mass/Vol] 68.0 ug/dL Normal 65.0-175.0 [facility] Comment on above: Performed By: #### C MP, LIPID, TSH #### [facility] [address] [place] [address] Dr. Hugh Landis TIBC DIRECT 246.0 ug/dL Critically low 250.0-450.0 [facility] Comment on above: Performed By: #### C MP, LIPID, TSH #### [facility] [address] [place] [address] Dr. Hugh Landis MAGNESIUMon 11-14-2021 Magnesium [Mass/Vol] 1.8 mg/dL Normal 1.8-2.4 [facility] Comment on above: Performed By: #### U TOMAS, TSH, CMP, LIPID, T7 #### [facility] [address] [place] [address] Dr. Hugh Landis RENAL FUNCTION PANELon 11-14 Albumin [Mass/Vol] 3.4 g/dL Normal 3.4-5.0 [facility] Comment on above: Performed By: #### U TOMAS, TSH, CMP, LIPID, T7 #### [facility] [address] [address] [address] Hugh Landis Calcium [Mass/Vol] 9.1 mg/dL Normal 8.5-10.1 [facility] Comment on above: Performed By: #### U TOMAS, TSH, CMP, LIPID, T7 #### [facility] [address] [address] [address] Hugh Landis Chloride [Moles/Vol] 105 mmol/L Normal 98-107 [facility] Comment on above: Performed By: #### U TOMAS, TSH, CMP, LIPID, T7 #### [facility] [address] [address] [address] Hugh Lanids CO2 [Moles/Vol] 29.2 mmol/L Normal 21.0-32.0 [facility] Comment on above: Performed By: #### U TOMAS, TSH, CMP, LIPID, T7 #### [facility] [address] [address] [address] Hugh Landis Creatinine [Mass/Vol] 1.62 mg/dL Critically high 0.70-1.30 [facility] Comment on above: Performed By: #### U TOMAS, TSH, CMP, LIPID, T7 #### [facility] [address] [address] [address] Hugh Landis EGFR-AF PALESTINIAN 53 mL/min/1.73m2 Critically low >=60 [facility] Comment on above: Performed By: #### U TOMAS, TSH, CMP, LIPID, T7 #### [facility] [address] [address] [address] Hugh Landis EGFR-NON AF PALESTINIAN 44 mL/min/1.73m2 Critically low >=60 [facility] Comment on above: Performed By: #### U TOMAS, TSH, CMP, LIPID, T7 #### [facility] [address] [address] [address] Hugh Landis Glucose [Mass/Vol] 136 mg/dL Critically high 74-106 [facility] Comment on above: Performed By: #### U TOMAS, TSH, CMP, LIPID, T7 #### [facility] [address] [address] [address] Hugh Landis Phosphate [Mass/Vol] 2.8 mg/dL Normal 2.6-4.7 [facility] Comment on above: Performed By: #### U TOMAS, TSH, CMP, LIPID, T7 #### [facility] [address] [address] [address] Hugh Landis Potassium [Moles/Vol] 3.1 mmol/L Critically low 3.5-5.1 [facility] Comment on above: Performed By: #### U TOMAS, TSH, CMP, LIPID, T7 #### [facility] [address] [address] [address] Hugh Landis Sodium [Moles/Vol] 141 mmol/L Normal 136-145 [facility] Comment on above: Performed By: #### U TOMAS, TSH, CMP, LIPID, T7 #### [facility] [address] [address] [address] Hugh Landis Urea nitrogen [Mass/Vol] 19.0 mg/dL Critically high 7.0-18.0 [facility] Comment on above: Performed By: #### U TOMAS, TSH, CMP, LIPID, T7 #### [facility] [address] [address] [address] Hugh Landis URIC ACID SERUMon 11-14-2021 Urate [Mass/Vol] 8.7 mg/dL Critically high 3.5-7.2 [facility] Comment on above: Performed By: #### U TOMAS, TSH, CMP, LIPID, T7 #### [facility] [address] [address] [address] Hugh Landis VIT B12 AND FOLATEon 022 Cobalamin (Vitamin B12) [Mass/Vol] 373.0 pg/mL Normal 193.0-986.0 [facility] Comment on above: Performed By: #### U TOMAS, TSH, CMP, LIPID, T7 #### [facility] [address] [place] [address] Dr. Hugh Landis FOLATE 14.00 ng/mL Normal 8.60-58.90 [facility] Comment on above: Performed By: #### U TOMAS, TSH, CMP, LIPID, T7 #### [facility] [address] [place], [place] [address] Dr. Hugh Landis VITAMIN D 25 OHon 11-14-2021 VIT D 25-OH 33.8 ng/mL Normal [facility] Comment on above: Performed By: #### U TOMAS, TSH, CMP, LIPID, T7 #### [facility] [address] [address] [address] Hugh Landis VIT D RANGES SEE BELOW Normal [facility] Comment on above: Result Comment: <20 ng/mL Vit D deficient 20 - <30 ng/mL Vit D insufficient 30 - 100 ng/mL Vit D sufficient >100 ng/mL Potential Toxicity Performed By: #### U TOMAS, TSH, CMP, LIPID, T7 #### [facility] [address] [place], [place] [address] Dr. Hugh Landis US KIDNEYS BLADDERon 022 [...] AUSTIN LARIOS Date: 2021-11-01 16:44 Normal [facility] XR CHEST 2 Von 11-01-2021 XR [...] by: OBIE TSE Date: 2021-11-01 06:51 Normal [facility] LUNG VENT_PERFon 11-01-19 22 NM LUNG VENT_PERF EXAM: MT LUNG VENT_PERF HISTORY: Dyspnea COMPARISON: Chest x-ray 10/31/2021 TECHNIQUE: 6.1 mCi technetium MAA. 24.9 mCi technetium DTPA. FINDINGS: Perfusion images demonstrate no segmental perfusion defects to suggest acute pulmonary embolism Ventilation images are normal without ventilation defects. IMPRESSION: Normal ventilation/perfusion scan Electronically authenticated by: JASPER SCHRADER Date: 2021-10-31 12:35 Normal [facility] PROF CHEM 8 (BAS METB)on Anion gap [Moles/Vol] 17.5 mmol/L Normal [facility] Comment on above: Performed By: #### B MP #### [facility] [address] [address] [address] Hugh Landis Calcium [Mass/Vol] 9.4 mg/dL Normal 8.5-10.1 [facility] Comment on above: Performed By: #### B MP #### [facility] [address] [address] [address] Hugh Landis Chloride [Moles/Vol] 100 mmol/L Normal 98-107 [facility] Comment on above: Performed By: #### B MP #### [facility] [address] [address] [address] Hugh Landis CO2 [Moles/Vol] 22.8 mmol/L Normal 21.0-32.0 [facility] Comment on above: Performed By: #### B MP #### [facility] [address] [address] [address] Hugh Landis Creatinine [Mass/Vol] 2.69 mg/dL Critically high 0.70-1.30 [facility] Comment on above: Performed By: #### B MP #### [facility] [address] [address] [address] Hugh Landis EGFR-AF [place]ST[place]IAN 30 mL/min/1.73m2 Critically low >=60 [facility] Comment on above: Performed By: #### B MP #### [facility] [address] [address] [address] Hugh Landis EGFR-NON AF [place]ST[place]IAN 24 mL/min/1.73m2 Critically low >=60 [facility] Comment on above: Performed By: #### B MP #### [facility] [address] [address] [address] Hugh Landis Glucose [Mass/Vol] 117 mg/dL Critically high 74-106 [facility] Comment on above: Performed By: #### B MP #### [facility] [address] [address] [address] Hugh Landis Potassium [Moles/Vol] 4.3 mmol/L Normal 3.5-5.1 [facility] Comment on above: Performed By: #### B MP #### [facility] [address] [address] [address] Hugh Landis Sodium [Moles/Vol] 136 mmol/L Normal 136-145 [facility] Comment on above: Performed By: #### B MP #### [facility] [address] [address] [address] Hugh Landis Urea nitrogen [Mass/Vol] 41.0 mg/dL Critically high 7.0-18.0 [facility] Comment on above: Performed By: #### B MP #### [facility] [address] [address] [address] Hugh Landis Urea nitrogen/Creatinine [Mass ratio] 15.2 mg/mg Normal [facility] Comment on above: Performed By: #### B MP #### [facility] [address] [address] [address] Hugh Landis CBC AUTO DIFFon 10-16-2021 BASO # 0.0 103/ul Normal 0.0-0.1 [facility] Comment on above: Performed By: #### P T #### [facility] [address] [address] [address] Hugh Landis Basophils/100 WBC (Bld) 0.6 % Normal 0.2-2.0 [facility] Comment on above: Performed By: #### P T #### [facility] [address] [address] [address] Hugh Landis EO # 0.2 103/ul Normal 0.0-0.7 [facility] Comment on above: Performed By: #### P T #### [facility] [address] [address] [address] Hugh Landis Eosinophils/100 WBC (Bld) 2.3 % Normal 0.9-7.0 [facility] Comment on above: Performed By: #### P T #### [facility] [address] [place] [address] Dr. Hugh Landis Erythrocyte distribution width (RBC) [Ratio] 12.7 % Normal 11.0-15.0 [facility] Comment on above: Performed By: #### P T #### [facility] [address] [place] [address] Dr. Hugh Landis Hematocrit (Bld) [Volume fraction] 36.2 % Critically low 42.0-54.0 [facility] Comment on above: Performed By: #### P T #### [facility] [address] [address] [address] Hugh Landis Hemoglobin (Bld) [Mass/Vol] 11.5 g/dL Critically low 14.0-18.0 [facility] Comment on above: Performed By: #### P T #### [facility] [address] [address] [address] Hugh Landis IG # 0.02 10e3/ul Normal 0.00-0.03 [facility] Comment on above: Performed By: #### P T #### [facility] [address] [address] [address] Hugh Landis IG % 0.3 % Normal 0.0-0.5 [facility] Comment on above: Performed By: #### P T #### [facility] [address] [place] [address] Dr. Hugh Landis LYMPH # 1.4 103/ul Normal 1.2-3.8 [facility] Comment on above: Performed By: #### P T #### [facility] [address] [place] [address] Dr. Hugh Landis Lymphocytes/100 WBC (Bld) 21.3 % Normal 20.5-60.0 [facility] Comment on above: Performed By: #### P T #### [facility] [address] [place] [address] Dr. Hugh Landis MANUAL DIFF REQ NO Normal [facility] Comment on above: Performed By: #### P T #### [facility] [address] [place] [address] Dr. Hugh Landis MCH (RBC) [Entitic mass] 29.6 pg Normal 25.9-34.0 [facility] Comment on above: Performed By: #### P T #### [facility] [address] [place] [address] Dr. Hugh Landis MCHC (RBC) [Mass/Vol] 31.8 g/dL Normal 29.9-35.2 [facility] Comment on above: Performed By: #### P T #### [facility] [address] [place] [address] Dr. Hugh Landis MCV (RBC) [Entitic vol] 93.1 fL Normal 80.0-94.0 [facility] Comment on above: Performed By: #### P T #### [facility] [address] [place] [address] Dr. Hugh Landis MONO # 0.8 103/ul Normal 0.3-0.8 [facility] Comment on above: Performed By: #### P T #### [facility] [address] [place] [address] Dr. Hugh Landis Monocytes/100 WBC (Bld) 11.5 % Normal 1.7-12.0 [facility] Comment on above: Performed By: #### P T #### [facility] [address] [place] [address] Dr. Hugh Landis NEUT # 4.2 103/ul Normal 1.4-6.5 [facility] Comment on above: Performed By: #### P T #### [facility] [address] [address] [address] Hugh Landis Neutrophils/100 WBC (Bld) 64.0 % Normal 43.0-75.0 [facility] Comment on above: Performed By: #### P T #### [facility] [address] [place] [address] Dr. Hugh Landis Platelet mean volume (Bld) [Entitic vol] 9.2 fL Critically low 9.5-13.5 [facility] Comment on above: Performed By: #### P T #### [facility] [address] [place] [address] Dr. Hugh Landis PLT 241 103/ul Normal 150-450 [facility] Comment on above: Performed By: #### P T #### [facility] [address] [place] [address] Dr. Hugh Landis RBC 3.89 106/ul Critically low 4.70-6.10 [facility] Comment on above: Performed By: #### P T #### [facility] [address] [place] [address] Dr. Hugh Landis WBC 6.5 103/ul Normal 4.0-11.0 [facility] Comment on above: Performed By: #### P T #### [facility] [address] [place] [address] Dr. Hugh Landis [facility] SARS-CoV-2 (COVID-19) RNA MUKUL+probe Ql (Unsp spec) Not detected Normal NOT DETECTED [facility] Comment on above: Result Comment: This test is not yet approved or cleared by the [place] FDA. When there are no FDA-approved or cleared tests available, and other criteria are met, FDA can make tests available under an emergency access mechanism called an Emergency Use Authorization (EUA). The EUA for this test is supported by the [place] of Health and Human Service's (HHS's) declaration [...] U TOMAS, TSH, CMP, LIPID, T7 #### [facility] [address] [place] [address] Dr. Hugh Landis PROF CHEM 8 (BAS METB)on Anion gap [Moles/Vol] 16.3 mmol/L Normal [facility] Comment on above: Performed By: #### C MP, LIPID, TSH #### [facility] [address] [place] [address] Dr. Hugh Landis Calcium [Mass/Vol] 9.6 mg/dL Normal 8.5-10.1 [facility] Comment on above: Performed By: #### C MP, LIPID, TSH #### [facility] [address] [place] [address] Dr. Hugh Landis Chloride [Moles/Vol] 103 mmol/L Normal 98-107 [facility] Comment on above: Performed By: #### C MP, LIPID, TSH #### [facility] [address] [place] [address] Dr. Hugh Landis CO2 [Moles/Vol] 21.9 mmol/L Normal 21.0-32.0 [facility] Comment on above: Performed By: #### C MP, LIPID, TSH #### [facility] [address] [place] [address] Dr. Hugh Landis Creatinine [Mass/Vol] 3.58 mg/dL Critically high 0.70-1.30 [facility] Comment on above: Performed By: #### C MP, LIPID, TSH #### [facility] [address] [address] [address] Hugh Landis EGFR-AF PALESTINIAN 21 mL/min/1.73m2 Critically low >=60 [facility] Comment on above: Performed By: #### C MP, LIPID, TSH #### [facility] [address] [address] [address] Hugh Landis EGFR-NON AF PALESTINIAN 18 mL/min/1.73m2 Critically low >=60 [facility] Comment on above: Performed By: #### C MP, LIPID, TSH #### [facility] [address] [address] [address] Hugh Landis Glucose [Mass/Vol] 115 mg/dL Critically high 74-106 [facility] Comment on above: Performed By: #### C MP, LIPID, TSH #### [facility] [address] [place] [address] Dr. Hugh Landis Potassium [Moles/Vol] 5.2 mmol/L Critically high 3.5-5.1 [facility] Comment on above: Performed By: #### C MP, LIPID, TSH #### [facility] [address] [address] [address] Hugh Landis Sodium [Moles/Vol] 136 mmol/L Normal 136-145 [facility] Comment on above: Performed By: #### C MP, LIPID, TSH #### [facility] [address] [address] [address] Hugh Landis Urea nitrogen [Mass/Vol] 54.0 mg/dL Critically high 7.0-18.0 [facility] Comment on above: Performed By: #### C MP, LIPID, TSH #### [facility] [address] [place] [address] Dr. Hugh Landis Urea nitrogen/Creatinine [Mass ratio] 15.1 mg/mg Normal [facility] Comment on above: Performed By: #### C MP, LIPID, TSH #### [facility] [address] [address] [address] Hugh Landis MRSA COLONIZATION SCREENING CULTUREon 10-09-2021 MRSA Screening Culture Negative Normal [facility] Comment on above: Performed By: #### C MP, LIPID, TSH #### [facility] [address] [place] [address] Dr. Hugh Landis CBC AUTO DIFFon 10-06-2021 BASO # 0.0 103/ul Normal 0.0-0.1 [facility] Comment on above: Performed By: #### U TOMAS, TSH, CMP, LIPID, T7 #### [facility] [address] [address] [address] Hugh Landis Basophils/100 WBC (Bld) 0.3 % Normal 0.2-2.0 [facility] Comment on above: Performed By: #### U TOMAS, TSH, CMP, LIPID, T7 #### [facility] [address] [place] [address] Dr. Hugh Landis EO # 0.1 103/ul Normal 0.0-0.7 [facility] Comment on above: Performed By: #### U TOMAS, TSH, CMP, LIPID, T7 #### [facility] [address] [place] [address] Dr. Hugh Landis Eosinophils/100 WBC (Bld) 2.3 % Normal 0.9-7.0 [facility] Comment on above: Performed By: #### U TOMAS, TSH, CMP, LIPID, T7 #### [facility] [address] [place] [address] Dr. Hugh Landis Erythrocyte distribution width (RBC) [Ratio] 13.3 % Normal 11.0-15.0 [facility] Comment on above: Performed By: #### U TOMAS, TSH, CMP, LIPID, T7 #### [facility] [address] [place] [address] Dr. Hugh Landis Hematocrit (Bld) [Volume fraction] 36.5 % Critically low 42.0-54.0 [facility] Comment on above: Performed By: #### U TOMAS, TSH, CMP, LIPID, T7 #### [facility] [address] [place] [address] Dr. Hugh Landis Hemoglobin (Bld) [Mass/Vol] 11.7 g/dL Critically low 14.0-18.0 [facility] Comment on above: Performed By: #### U TOMAS, TSH, CMP, LIPID, T7 #### [facility] [address] [place] [address] Dr. Hugh Landis IG # 0.02 10e3/ul Normal 0.00-0.03 [facility] Comment on above: Performed By: #### U TOMAS, TSH, CMP, LIPID, T7 #### [facility] [address] [place] [address] Dr. Hugh Landis IG % 0.3 % Normal 0.0-0.5 [facility] Comment on above: Performed By: #### U TOMAS, TSH, CMP, LIPID, T7 #### [facility] [address] [place] [address] Dr. Hugh Landis LYMPH # 1.3 103/ul Normal 1.2-3.8 [facility] Comment on above: Performed By: #### U TOMAS, TSH, CMP, LIPID, T7 #### [facility] [address] [place] [address] Dr. Hugh Landis Lymphocytes/100 WBC (Bld) 21.9 % Normal 20.5-60.0 [facility] Comment on above: Performed By: #### U TOMAS, TSH, CMP, LIPID, T7 #### [facility] [address] [place] [address] Dr. Hugh Landis MANUAL DIFF REQ NO Normal [facility] Comment on above: Performed By: #### U TOMAS, TSH, CMP, LIPID, T7 #### [facility] [address] [place] [address] Dr. Hugh Landis MCH (RBC) [Entitic mass] 29.7 pg Normal 25.9-34.0 [facility] Comment on above: Performed By: #### U TOMAS, TSH, CMP, LIPID, T7 #### [facility] [address] [place] [address] Dr. Hugh Landis MCHC (RBC) [Mass/Vol] 32.1 g/dL Normal 29.9-35.2 [facility] Comment on above: Performed By: #### U TOMAS, TSH, CMP, LIPID, T7 #### [facility] [address] [place] [address] Dr. Hugh Landis MCV (RBC) [Entitic vol] 92.6 fL Normal 80.0-94.0 [facility] Comment on above: Performed By: #### U TOMAS, TSH, CMP, LIPID, T7 #### [facility] [address] [place] [address] Dr. Hugh Landis MONO # 0.7 103/ul Normal 0.3-0.8 [facility] Comment on above: Performed By: #### U TOMAS, TSH, CMP, LIPID, T7 #### [facility] [address] [place] [address] Dr. Hugh Landis Monocytes/100 WBC (Bld) 11.3 % Normal 1.7-12.0 [facility] Comment on above: Performed By: #### U TOMAS, TSH, CMP, LIPID, T7 #### [facility] [address] [place] [address] Dr. Hugh Landis NEUT # 3.7 103/ul Normal 1.4-6.5 [facility] Comment on above: Performed By: #### U TOMAS, TSH, CMP, LIPID, T7 #### [facility] [address] [place] [address] Dr. Hugh Landis Neutrophils/100 WBC (Bld) 63.9 % Normal 43.0-75.0 [facility] Comment on above: Performed By: #### U TOMAS, TSH, CMP, LIPID, T7 #### [facility] [address] [place] [address] Dr. Hugh Landis Platelet mean volume (Bld) [Entitic vol] 8.9 fL Critically low 9.5-13.5 [facility] Comment on above: Performed By: #### U TOMAS, TSH, CMP, LIPID, T7 #### [facility] [address] [place] [address] Dr. Hugh Landis PLT 257 103/ul Normal 150-450 [facility] Comment on above: Performed By: #### U TOMAS, TSH, CMP, LIPID, T7 #### [facility] [address] [address] [address] Hugh Landis RBC 3.94 106/ul Critically low 4.70-6.10 [facility] Comment on above: Performed By: #### U TOMAS, TSH, CMP, LIPID, T7 #### [facility] [address] [address] [address] Hugh Landis WBC 5.8 103/ul Normal 4.0-11.0 [facility] Comment on above: Performed By: #### U TOMAS, TSH, CMP, LIPID, T7 #### [facility] [address] [address] [address] Hugh Landis GLYCOHEMOGLOBIN A1Con 2021 ADA RECOMMENDATION SEE BELOW Normal [facility] Comment on above: Result Comment: ADA RECOMMENDED LIMIT 4.0 - 6.0 ADA THERAPEUTIC TARGET < 7.0 ACTION SUGGESTED > 7.0 Performed By: #### U TOMAS, TSH, CMP, LIPID, T7 #### [facility] [address] [address] [address] Hugh Landis Glucose [Mass/Vol] 134 mg/dL Normal [facility] Comment on above: Performed By: #### U TOMAS, TSH, CMP, LIPID, T7 #### [facility] [address] [address] [address] Hugh Landis HbA1c (Bld) [Mass fraction] 6.3 % Critically high 4.5-6.2 [facility] Comment on above: Performed By: #### U TOMAS, TSH, CMP, LIPID, T7 #### [facility] [address] [address] [address] Hugh Landis PROF CHEM 8 (BAS METB)on Anion gap [Moles/Vol] 17.6 mmol/L Normal [facility] Comment on above: Performed By: #### C MP, LIPID, TSH #### [facility] [address] [address] [address] Hugh Landis Calcium [Mass/Vol] 9.5 mg/dL Normal 8.5-10.1 [facility] Comment on above: Performed By: #### C MP, LIPID, TSH #### [facility] [address] [address] [address] Hugh Landis Chloride [Moles/Vol] 102 mmol/L Normal 98-107 [facility] Comment on above: Performed By: #### C MP, LIPID, TSH #### [facility] [address] [address] [address] Hugh Landis CO2 [Moles/Vol] 22.2 mmol/L Normal 21.0-32.0 [facility] Comment on above: Performed By: #### C MP, LIPID, TSH #### [facility] [address] [address] [address] Hugh Landis Creatinine [Mass/Vol] 2.94 mg/dL Critically high 0.70-1.30 [facility] Comment on above: Performed By: #### C MP, LIPID, TSH #### [facility] [address] [address] [address] Hugh Landis EGFR-AF PALESTINIAN 27 mL/min/1.73m2 Critically low >=60 [facility] Comment on above: Performed By: #### C MP, LIPID, TSH #### [facility] [address] [address] [address] Hugh Landis EGFR-NON AF PALESTINIAN 22 mL/min/1.73m2 Critically low >=60 [facility] Comment on above: Performed By: #### C MP, LIPID, TSH #### [facility] [address] [address] [address] Hugh Landis Glucose [Mass/Vol] 234 mg/dL Critically high 74-106 [facility] Comment on above: Performed By: #### C MP, LIPID, TSH #### [facility] [address] [address] [address] Hugh Landis Potassium [Moles/Vol] 5.8 mmol/L Critically high 3.5-5.1 [facility] Comment on above: Performed By: #### C MP, LIPID, TSH #### [facility] [address] [address] [address] Hugh Landis Sodium [Moles/Vol] 136 mmol/L Normal 136-145 [facility] Comment on above: Performed By: #### C MP, LIPID, TSH #### [facility] [address] [place] [address] Dr. Hugh Landis Urea nitrogen [Mass/Vol] 46.0 mg/dL Critically high 7.0-18.0 [facility] Comment on above: Performed By: #### C MP, LIPID, TSH #### [facility] [address] [place] [address] Dr. Hugh Landis Urea nitrogen/Creatinine [Mass ratio] 15.6 mg/mg Normal [facility] Comment on above: Performed By: #### C MP, LIPID, TSH #### [facility] [address] [place] [address] Dr. Hugh Landis PROTIMEon 10-06-2021 INR Coag (PPP) [Relative time] 1.22 {INR} Normal [facility] Comment on above: Performed By: #### U TOMAS, TSH, CMP, LIPID, T7 #### [facility] [address] [place] [address] Dr. Hugh Landis INR GUIDELINES SEE BELOW Normal [facility] Comment on above: Result Comment: VIC RED INR: 2.0 - 3.0 CONDITIONS NOT LISTED BELOW 2.5 - 3.5 FOR PROSTHETIC HEART VALVE REPLACEMENT 2.5 - 3.5 RECURRENT THROMBOSIS Performed By: #### U TOMAS, TSH, CMP, LIPID, T7 #### [facility] [address] [place] [address] Dr. Hugh Landis PT Coag (PPP) [Time] 13.0 s Critically high 9.0-11.6 [facility] Comment on above: Performed By: #### U TOMAS, TSH, CMP, LIPID, T7 #### [facility] [address] [place] [address] Dr. Hugh Landis PTTon 10-06-2021 aPTT Coag (Bld) [Time] 30.6 s Normal 22.3-36.2 [facility] Comment on above: Performed By: #### U TOMAS, TSH, CMP, LIPID, T7 #### [facility] [address] [address] [address] Hugh Landis UA RANDOMon 10-06-2021 Bilirubin Ql (U) Negative Normal NEGATIVE [facility] Comment on above: Performed By: #### C MP, LIPID, TSH #### [facility] [address] [place] [address] Dr. Hugh Landis Clarity (U) CLEAR Normal CLEAR [facility] Comment on above: Performed By: #### C MP, LIPID, TSH #### [facility] [address] [address] [address] Hugh Landis Color (U) LT. YELLOW Normal YELLOW [facility] Comment on above: Performed By: #### C MP, LIPID, TSH #### [facility] [address] [place] [address] Dr. Hugh Landis Glucose Ql (U) Negative Normal NEGATIVE [facility] Comment on above: Performed By: #### C MP, LIPID, TSH #### [facility] [address] [place] [address] Dr. Hugh Landis Hemoglobin Ql (U) Negative Normal NEGATIVE [facility] Comment on above: Performed By: #### C MP, LIPID, TSH #### [facility] [address] [place] [address] Dr. Hugh Landis Ketones Ql (U) Negative Normal NEGATIVE [facility] Comment on above: Performed By: #### C MP, LIPID, TSH #### [facility] [address] [place] [address] Dr. Hugh Landis LEUKOCYTES Negative Normal NEGATIVE [facility] Comment on above: Performed By: #### C MP, LIPID, TSH #### [facility] [address] [place] [address] Dr. Hugh Landis Nitrite Ql (U) Negative Normal NEGATIVE [facility] Comment on above: Performed By: #### C MP, LIPID, TSH #### [facility] [address] [place] [address] Dr. Hugh Landis pH (U) 5.5 [pH] Normal 5-9 [facility] Comment on above: Performed By: #### C MP, LIPID, TSH #### [facility] [address] [place] [address] Dr. Hugh Landis SPEC GRAVITY 1.020 Normal 1.005-<=1.02 5 [facility] Comment on above: Performed By: #### C MP, LIPID, TSH #### [facility] [address] [place] [address] Dr. Hugh Landis UA PROTEIN Negative Normal NEGATIVE/ TRACE [facility] Comment on above: Performed By: #### C MP, LIPID, TSH #### [facility] [address] [place] [address] Dr. Hugh Landis Urobilinogen Qn (U) 0.2 {Dahiana'U}/dL Normal 0.2 - 1. 0 [facility] Comment on above: Performed By: #### C MP, LIPID, TSH #### [facility] [address] [place] [address] Dr. Hugh Landis CBC AUTO DIFFon 09-25-2021 BASO # 0.0 103/ul Normal 0.0-0.1 [facility] Comment on above: Performed By: #### U TOMAS, TSH, CMP, LIPID, T7 #### [facility] [address] [place] [address] Dr. Hugh Landis Basophils/100 WBC (Bld) 0.4 % Normal 0.2-2.0 [facility] Comment on above: Performed By: #### U TOMAS, TSH, CMP, LIPID, T7 #### [facility] [address] [place] [address] Dr. Hugh Landis EO # 0.1 103/ul Normal 0.0-0.7 [facility] Comment on above: Performed By: #### U TOMAS, TSH, CMP, LIPID, T7 #### [facility] [address] [place] [address] Dr. Hugh Landis Eosinophils/100 WBC (Bld) 1.7 % Normal 0.9-7.0 [facility] Comment on above: Performed By: #### U TOMAS, TSH, CMP, LIPID, T7 #### [facility] [address] [place] [address] Dr. Hugh Landis Erythrocyte distribution width (RBC) [Ratio] 13.5 % Normal 11.0-15.0 [facility] Comment on above: Performed By: #### U TOMAS, TSH, CMP, LIPID, T7 #### [facility] [address] [address] [address] Hugh Landis Hematocrit (Bld) [Volume fraction] 36.0 % Critically low 42.0-54.0 [facility] Comment on above: Performed By: #### U TOMAS, TSH, CMP, LIPID, T7 #### [facility] [address] [address] [address] Hugh Landis Hemoglobin (Bld) [Mass/Vol] 11.7 g/dL Critically low 14.0-18.0 [facility] Comment on above: Performed By: #### U TOMAS, TSH, CMP, LIPID, T7 #### [facility] [address] [place] [address] Dr. Hugh Landis IG # 0.02 10e3/ul Normal 0.00-0.03 [facility] Comment on above: Performed By: #### U TOMAS, TSH, CMP, LIPID, T7 #### [facility] [address] [address] [address] Hugh Landis IG % 0.3 % Normal 0.0-0.5 [facility] Comment on above: Performed By: #### U TOMAS, TSH, CMP, LIPID, T7 #### [facility] [address] [address] [address] Hugh Landis LYMPH # 1.3 103/ul Normal 1.2-3.8 [facility] Comment on above: Performed By: #### U TOMAS, TSH, CMP, LIPID, T7 #### [facility] [address] [address] [address] Hugh Landis Lymphocytes/100 WBC (Bld) 18.3 % Critically low 20.5-60.0 [facility] Comment on above: Performed By: #### U TOMAS, TSH, CMP, LIPID, T7 #### [facility] [address] [place] [address] Dr. Hugh Landis MANUAL DIFF REQ NO Normal [facility] Comment on above: Performed By: #### U TOMAS, TSH, CMP, LIPID, T7 #### [facility] [address] [place] [address] Dr. Hugh Landis MCH (RBC) [Entitic mass] 29.4 pg Normal 25.9-34.0 [facility] Comment on above: Performed By: #### U TOMAS, TSH, CMP, LIPID, T7 #### [facility] [address] [place] [address] Dr. Hugh Landis MCHC (RBC) [Mass/Vol] 32.5 g/dL Normal 29.9-35.2 [facility] Comment on above: Performed By: #### U TOMAS, TSH, CMP, LIPID, T7 #### [facility] [address] [place] [address] Dr. Hugh Landis MCV (RBC) [Entitic vol] 90.5 fL Normal 80.0-94.0 [facility] Comment on above: Performed By: #### U TOMAS, TSH, CMP, LIPID, T7 #### [facility] [address] [place] [address] Dr. Hugh Landis MONO # 0.6 103/ul Normal 0.3-0.8 [facility] Comment on above: Performed By: #### U TOMAS, TSH, CMP, LIPID, T7 #### [facility] [address] [place] [address] Dr. Hugh Landis Monocytes/100 WBC (Bld) 8.6 % Normal 1.7-12.0 [facility] Comment on above: Performed By: #### U TOMAS, TSH, CMP, LIPID, T7 #### [facility] [address] [place] [address] Dr. Hugh Landis NEUT # 4.9 103/ul Normal 1.4-6.5 [facility] Comment on above: Performed By: #### U TOMAS, TSH, CMP, LIPID, T7 #### [facility] [address] [place] [address] Dr. Hugh Landis Neutrophils/100 WBC (Bld) 70.7 % Normal 43.0-75.0 [facility] Comment on above: Performed By: #### U TOMAS, TSH, CMP, LIPID, T7 #### [facility] [address] [address] [address] Hugh Landis Platelet mean volume (Bld) [Entitic vol] 8.8 fL Critically low 9.5-13.5 [facility] Comment on above: Performed By: #### U TOMAS, TSH, CMP, LIPID, T7 #### [facility] [address] [place] [address] Dr. Hugh Landis PLT 270 103/ul Normal 150-450 [facility] Comment on above: Performed By: #### U TOMAS, TSH, CMP, LIPID, T7 #### [facility] [address] [place] [address] Dr. Hugh Landis RBC 3.98 106/ul Critically low 4.70-6.10 [facility] Comment on above: Performed By: #### U TOMAS, TSH, CMP, LIPID, T7 #### [facility] [address] [place] [address] Dr. Hugh Landis WBC 6.9 103/ul Normal 4.0-11.0 [facility] Comment on above: Performed By: #### U TOMAS, TSH, CMP, LIPID, T7 #### [facility] [address] [place] [address] Dr. Hugh Landis CRPon 09-25-2021 CRP [Mass/Vol] mg/L Normal <=1.0 [facility] Comment on above: Performed By: #### P T #### [facility] [address] [place] [address] Dr. Hugh Landis CULTURE BLOODon 09-25-2021 Microscopic examination of blood, culture Culture Observations: NO GROWTH AT 5 DAYS. Normal [facility] Comment on above: Performed By: #### B MP #### [facility] [address] [place] [address] Dr. Hugh Landis Microscopic examination of blood, culture Culture Observations: NO GROWTH AT 5 DAYS. Normal [facility] Comment on above: Performed By: #### B MP #### [facility] [address] [address] [address] Hugh Landis IRONon 09-25-2021 Iron [Mass/Vol] 62.0 ug/dL Critically low 65.0-175.0 [facility] Comment on above: Performed By: #### B MP #### [facility] [address] [place] [address] Dr. Hugh Landis SED RATE WESTERGRENon 2021 SED RATE 102 mm/hr Critically high <=[address] [facility] Comment on above: Performed By: #### C MP, LIPID, TSH #### [facility] [address] [place] [address] Dr. Hugh Landis NM BONE IMAGE 3 [...] OBIE TSE Date: 2021-09-05 16:15 Normal [facility] CREATININEon 08-25-2021 Creatinine [Mass/Vol] 1.92 mg/dL Critically high 0.70-1.30 [facility] Comment on above: Performed By: #### C MP, LIPID, TSH #### [facility] [address] [address] [address] Hugh Landis EGFR-AF PALESTINIAN 44 mL/min/1.73m2 Critically low >=60 [facility] Comment on above: Performed By: #### C MP, LIPID, TSH #### [facility] [address] [place] [address] Dr. Hugh Landis EGFR-NON AF PALESTINIAN 36 mL/min/1.73m2 Critically low >=60 [facility] Comment on above: Performed By: #### C MP, LIPID, TSH #### [facility] [address] [place] [address] Dr. Hugh Landis CTA CHEST WO W [...] OBIE TSE Date: 2021-08-25 10:16 Normal [facility] CBC AUTO DIFFon 08-18-2021 BASO # 0.0 103/ul Normal 0.0-0.1 [facility] Comment on above: Performed By: #### C MP, LIPID, TSH #### [facility] [address] [place] [address] Dr. Hugh Landis Basophils/100 WBC (Bld) 0.4 % Normal 0.2-2.0 [facility] Comment on above: Performed By: #### C MP, LIPID, TSH #### [facility] [address] [place] [address] Dr. Hugh Landis EO # 0.1 103/ul Normal 0.0-0.7 [facility] Comment on above: Performed By: #### C MP, LIPID, TSH #### [facility] [address] [address] [address] Hugh Landis Eosinophils/100 WBC (Bld) 1.8 % Normal 0.9-7.0 [facility] Comment on above: Performed By: #### C MP, LIPID, TSH #### [facility] [address] [place] [address] Dr. Hugh Landis Erythrocyte distribution width (RBC) [Ratio] 13.3 % Normal 11.0-15.0 [facility] Comment on above: Performed By: #### C MP, LIPID, TSH #### [facility] [address] [place] [address] Dr. Hugh Landis Hematocrit (Bld) [Volume fraction] 34.7 % Critically low 42.0-54.0 [facility] Comment on above: Performed By: #### C MP, LIPID, TSH #### [facility] [address] [place] [address] Dr. Hugh Landis Hemoglobin (Bld) [Mass/Vol] 11.3 g/dL Critically low 14.0-18.0 [facility] Comment on above: Performed By: #### C MP, LIPID, TSH #### [facility] [address] [place] [address] Dr. Hugh Landis IG # 0.05 10e3/ul Critically high 0.00-0.03 [facility] Comment on above: Performed By: #### C MP, LIPID, TSH #### [facility] [address] [place] [address] Dr. Hugh Landis IG % 0.7 % Critically high 0.0-0.[address] [facility] Comment on above: Performed By: #### C MP, LIPID, TSH #### [facility] [address] [place] [address] Dr. Hugh Landis LYMPH # 1.1 103/ul Critically low 1.2-3.8 [facility] Comment on above: Performed By: #### C MP, LIPID, TSH #### [facility] [address] [place] [address] Dr. Hugh Landis Lymphocytes/100 WBC (Bld) 16.0 % Critically low 20.5-60.0 [facility] Comment on above: Performed By: #### C MP, LIPID, TSH #### [facility] [address] [place] [address] Dr. Hugh Landis MANUAL DIFF REQ NO Normal [facility] Comment on above: Performed By: #### C MP, LIPID, TSH #### [facility] [address] [place] [address] Dr. Hugh Landis MCH (RBC) [Entitic mass] 29.7 pg Normal 25.9-34.0 [facility] Comment on above: Performed By: #### C MP, LIPID, TSH #### [facility] [address] [place] [address] Dr. Hugh Landis MCHC (RBC) [Mass/Vol] 32.6 g/dL Normal 29.9-35.2 [facility] Comment on above: Performed By: #### C MP, LIPID, TSH #### [facility] [address] [place] [address] Dr. Hugh Landis MCV (RBC) [Entitic vol] 91.3 fL Normal 80.0-94.0 [facility] Comment on above: Performed By: #### C MP, LIPID, TSH #### [facility] [address] [place] [address] Dr. Hugh Landis MONO # 0.7 103/ul Normal 0.3-0.8 [facility] Comment on above: Performed By: #### C MP, LIPID, TSH #### [facility] [address] [place] [address] Dr. Hugh Landis Monocytes/100 WBC (Bld) 9.7 % Normal 1.7-12.0 [facility] Comment on above: Performed By: #### C MP, LIPID, TSH #### [facility] [address] [place] [address] Dr. Hugh Landis NEUT # 4.9 103/ul Normal 1.4-6.5 [facility] Comment on above: Performed By: #### C MP, LIPID, TSH #### [facility] [address] [address] [address] Hugh Landis Neutrophils/100 WBC (Bld) 71.4 % Normal 43.0-75.0 [facility] Comment on above: Performed By: #### C MP, LIPID, TSH #### [facility] [address] [place] [address] Dr. Hugh Landis Platelet mean volume (Bld) [Entitic vol] 9.0 fL Critically low 9.5-13.5 [facility] Comment on above: Performed By: #### C MP, LIPID, TSH #### [facility] [address] [address] [address] Hugh Landis PLT 264 103/ul Normal 150-450 [facility] Comment on above: Performed By: #### C MP, LIPID, TSH #### [facility] [address] [place] [address] Dr. Hugh Landis RBC 3.80 106/ul Critically low 4.70-6.[address] [facility] Comment on above: Performed By: #### C MP, LIPID, TSH #### [facility] [address] [place] [address] Dr. Hugh Landis WBC 6.8 103/ul Normal 4.0-11.0 [facility] Comment on above: Performed By: #### C MP, LIPID, TSH #### [facility] [address] [place] [address] Dr. Hugh Landis PROF 14(COMP METB)on 022 Albumin [Mass/Vol] 3.5 g/dL Normal 3.4-5.0 [facility] Comment on above: Performed By: #### U TOMAS, TSH, CMP, LIPID, T7 #### [facility] [address] [address] [address] Hugh Landis Albumin/Globulin [Mass ratio] 0.8 {ratio} Normal [facility] Comment on above: Performed By: #### U TOMAS, TSH, CMP, LIPID, T7 #### [facility] [address] [place] [address] Dr. Hugh Landis ALP [Catalytic activity/Vol] 63 U/L Normal 46-116 [facility] Comment on above: Performed By: #### U TOMAS, TSH, CMP, LIPID, T7 #### [facility] [address] [address] [address] Hugh Landis ALT [Catalytic activity/Vol] 26 U/L Normal 16-63 [facility] Comment on above: Performed By: #### U TOMAS, TSH, CMP, LIPID, T7 #### [facility] [address] [address] [address] Hugh Landis Anion gap [Moles/Vol] 12.7 mmol/L Normal [facility] Comment on above: Performed By: #### U TOMAS, TSH, CMP, LIPID, T7 #### [facility] [address] [place] [address] Dr. Hugh Landis AST [Catalytic activity/Vol] 14 U/L Critically low 15-37 [facility] Comment on above: Performed By: #### U TOMAS, TSH, CMP, LIPID, T7 #### [facility] [address] [address] [address] Hugh Landis Bilirubin [Mass/Vol] 0.3 mg/dL Normal 0.2-1.0 [facility] Comment on above: Performed By: #### U TOMAS, TSH, CMP, LIPID, T7 #### [facility] [address] [place] [address] Dr. Hugh Landis Calcium [Mass/Vol] 9.2 mg/dL Normal 8.5-10.1 [facility] Comment on above: Performed By: #### U TOMAS, TSH, CMP, LIPID, T7 #### [facility] [address] [place] [address] Dr. Hugh Landis Chloride [Moles/Vol] 105 mmol/L Normal 98-107 [facility] Comment on above: Performed By: #### U TOMAS, TSH, CMP, LIPID, T7 #### [facility] [address] [place] [address] Dr. Hugh Landis CO2 [Moles/Vol] 25.5 mmol/L Normal 21.0-32.0 [facility] Comment on above: Performed By: #### U TOMAS, TSH, CMP, LIPID, T7 #### [facility] [address] [place] [address] Dr. Hugh Landis Creatinine [Mass/Vol] 2.46 mg/dL Critically high 0.70-1.30 [facility] Comment on above: Performed By: #### U TOMAS, TSH, CMP, LIPID, T7 #### [facility] [address] [place] [address] Dr. Hugh Landis EGFR-AF PALESTINIAN 33 mL/min/1.73m2 Critically low >=60 [facility] Comment on above: Performed By: #### U TOMAS, TSH, CMP, LIPID, T7 #### [facility] [address] [place] [address] Dr. Hugh Landis EGFR-NON AF PALESTINIAN 27 mL/min/1.73m2 Critically low >=60 [facility] Comment on above: Performed By: #### U TOMAS, TSH, CMP, LIPID, T7 #### [facility] [address] [place] [address] Dr. Hugh Landis Globulin (S) [Mass/Vol] 4.5 g/dL Normal [facility] Comment on above: Performed By: #### U TOMAS, TSH, CMP, LIPID, T7 #### [facility] [address] [place] [address] Dr. Hugh Landis Glucose [Mass/Vol] 119 mg/dL Critically high 74-106 [facility] Comment on above: Performed By: #### U TOMAS, TSH, CMP, LIPID, T7 #### [facility] [address] [place] [address] Dr. Hugh Landis Potassium [Moles/Vol] 4.2 mmol/L Normal 3.5-5.1 [facility] Comment on above: Performed By: #### U TOMAS, TSH, CMP, LIPID, T7 #### [facility] [address] [place] [address] Dr. Hugh Landis Protein [Mass/Vol] 8.0 g/dL Normal 6.4-8.2 [facility] Comment on above: Performed By: #### U TOMAS, TSH, CMP, LIPID, T7 #### [facility] [address] [id number] [address] Hugh Landis Sodium [Moles/Vol] 139 mmol/L Normal 136-145 [facility] Comment on above: Performed By: #### U TOMAS, TSH, CMP, LIPID, T7 #### [facility] [address] [id number] [address] Hugh Landis Urea nitrogen [Mass/Vol] 49.0 mg/dL Critically high 7.0-18.0 [facility] Comment on above: Performed By: #### U TOMAS, TSH, CMP, LIPID, T7 #### [facility] [address] [id number] [address] Hugh Landis Urea nitrogen/Creatinine [Mass ratio] 19.9 mg/mg Normal [facility] Comment on above: Performed By: #### U TOMAS, TSH, CMP, LIPID, T7 #### [facility] [address] [address] [address] Hugh Landis TESTOSTERONE, FREE,DIRECT, T OTALon 08-14-2021 Free Testosterone(Direct) 5.9 pg/mL Critically low 7.2-24.0 [facility] Comment on above: Result Comment: Perf ormed at: BN Performed By: #### B MP #### [facility] [address] [place] [address] Dr. Hugh Landis Testosterone [Mass/Vol] 392 ng/dL Normal 264-916 [facility] Comment on above: Result Comment: Adul t male reference interval is based on a population of healthy nonobese males (BMI <30) between 19 and 39 years old. Gavi et.al. JCEM 2017,102;1525-4113. PMID: [id number]. Performed at: CB Performed By: #### B MP #### [facility] [address] [place], [place] [id number] Dr. Hugh Landis VITAMIN B1 (THIAMINE)on 07-27 Vit. B1, Whole Blood 145.1 nmol/L Normal 66.5-200.0 [facility] Comment on above: Performed By: #### C MP, LIPID, TSH #### [facility] [address] [address] [address] Hugh Landis VITAMIN Aon 08-13-2021 Vitamin A 82.7 ug/dL Critically high 20.1-62.0 [facility] Comment on above: Result Comment: Refe rence intervals for vitamin A determined from [facility] internal studies. Individuals with vitamin A less than 20 ug/dL are considered vitamin A deficient and those with serum concentrations less than 10 ug/dL are considered severely deficient. . This test was developed and its performance characteristics determined by [facility]. It has not been cleared or approved by the Food and Drug Administration. Performed By: #### P T #### [facility] [address] [place] [address] Dr. Hugh Landis ZINC SERUM OR PLASMAon 08-10 Zinc, Plasma or Serum 78 ug/dL Normal 44-115 [facility] Comment on above: Result Comment: Dete ction Limit = 5 Performed By: #### C MP, LIPID, TSH #### [facility] [address] [place] [address] Dr. Hugh Landis FOLATE ([facility])on 2 Folate 12.9 ng/mL Normal >3.0 [facility] Comment on above: Result Comment: A se rum folate concentration of less than 3.1 ng/mL is considered to represent clinical deficiency. Performed By: #### P TT #### [facility] [address] [place] [address] Dr. Hugh Landis PTH INTACTon 08-09-2021 PTH, Intact 29 pg/mL Normal 15-65 [facility] Comment on above: Performed By: #### P TT #### [facility] [address] [place] [address] Dr. Hugh Landis CBC AUTO DIFFon 08-08-2021 BASO # 0.0 103/ul Normal 0.0-0.1 [facility] Comment on above: Performed By: #### C MP, LIPID, TSH #### [facility] [address] [place] [address] Dr. Hugh Landis Basophils/100 WBC (Bld) 0.6 % Normal 0.2-2.0 [facility] Comment on above: Performed By: #### C MP, LIPID, TSH #### [facility] [address] [place] [address] Dr. Hugh Landis EO # 0.2 103/ul Normal 0.0-0.7 [facility] Comment on above: Performed By: #### C MP, LIPID, TSH #### [facility] [address] [place] [address] Dr. Hugh Landis Eosinophils/100 WBC (Bld) 2.2 % Normal 0.9-7.0 [facility] Comment on above: Performed By: #### C MP, LIPID, TSH #### [facility] [address] [place] [address] Dr. Hugh Landis Erythrocyte distribution width (RBC) [Ratio] 13.4 % Normal 11.0-15.0 [facility] Comment on above: Performed By: #### C MP, LIPID, TSH #### [facility] [address] [place] [address] Dr. Hugh Landis Hematocrit (Bld) [Volume fraction] 38.2 % Critically low 42.0-54.0 [facility] Comment on above: Performed By: #### C MP, LIPID, TSH #### [facility] [address] [place] [address] Dr. Hugh Landis Hemoglobin (Bld) [Mass/Vol] 11.8 g/dL Critically low 14.0-18.0 [facility] Comment on above: Performed By: #### C MP, LIPID, TSH #### [facility] [address] [place] [address] Dr. Hugh Landis IG # 0.03 10e3/ul Normal 0.00-0.03 [facility] Comment on above: Performed By: #### C MP, LIPID, TSH #### [facility] [address] [place] [address] Dr. Hugh Landis IG % 0.4 % Normal 0.0-0.5 [facility] Comment on above: Performed By: #### C MP, LIPID, TSH #### [facility] [address] [place] [address] Dr. Hugh Landis LYMPH # 1.0 103/ul Critically low 1.2-3.8 [facility] Comment on above: Performed By: #### C MP, LIPID, TSH #### [facility] [address] [place] [address] Dr. Hugh Landis Lymphocytes/100 WBC (Bld) 14.9 % Critically low 20.5-60.0 [facility] Comment on above: Performed By: #### C MP, LIPID, TSH #### [facility] [address] [place] [address] Dr. Hugh Landis MANUAL DIFF REQ NO Normal [facility] Comment on above: Performed By: #### C MP, LIPID, TSH #### [facility] [address] [place] [address] Dr. Hugh Landis MCH (RBC) [Entitic mass] 28.5 pg Normal 25.9-34.0 [facility] Comment on above: Performed By: #### C MP, LIPID, TSH #### [facility] [address] [place] [address] Dr. Hugh Landis MCHC (RBC) [Mass/Vol] 30.9 g/dL Normal 29.9-35.2 [facility] Comment on above: Performed By: #### C MP, LIPID, TSH #### [facility] [address] [place] [address] Dr. Hugh Landis MCV (RBC) [Entitic vol] 92.3 fL Normal 80.0-94.0 [facility] Comment on above: Performed By: #### C MP, LIPID, TSH #### [facility] [address] [place] [address] Dr. Hugh Landis MONO # 0.7 103/ul Normal 0.3-0.8 [facility] Comment on above: Performed By: #### C MP, LIPID, TSH #### [facility] [address] [place] [address] Dr. Hugh Landis Monocytes/100 WBC (Bld) 10.6 % Normal 1.7-12.0 [facility] Comment on above: Performed By: #### C MP, LIPID, TSH #### [facility] [address] [address] [address] Hugh Landis NEUT # 4.9 103/ul Normal 1.4-6.5 [facility] Comment on above: Performed By: #### C MP, LIPID, TSH #### [facility] [address] [address] [address] Hugh Landis Neutrophils/100 WBC (Bld) 71.3 % Normal 43.0-75.0 [facility] Comment on above: Performed By: #### C MP, LIPID, TSH #### [facility] [address] [address] [address] Hugh Landis Platelet mean volume (Bld) [Entitic vol] 9.4 fL Critically low 9.5-13.5 [facility] Comment on above: Performed By: #### C MP, LIPID, TSH #### [facility] [address] [address] [address] Hugh Landis PLT 249 103/ul Normal 150-450 [facility] Comment on above: Performed By: #### C MP, LIPID, TSH #### [facility] [address] [address] [address] Hugh Landis RBC 4.14 106/ul Critically low 4.70-6.[address] [facility] Comment on above: Performed By: #### C MP, LIPID, TSH #### [facility] [address] [address] [address] Hugh Landis WBC 6.9 103/ul Normal 4.0-11.0 [facility] Comment on above: Performed By: #### C MP, LIPID, TSH #### [facility] [address] [address] [address] Hugh Landis FERRITINon 08-08-2021 Ferritin [Mass/Vol] 154.0 ng/mL Normal 26.0-388.0 [facility] Comment on above: Performed By: #### C MP, LIPID, TSH #### [facility] [address] [address] [address] Hugh Landis GLYCOHEMOGLOBIN A1Con 2021 ADA RECOMMENDATION SEE BELOW Normal [facility] Comment on above: Result Comment: ADA RECOMMENDED LIMIT 4.0 - 6.0 ADA THERAPEUTIC TARGET < 7.0 ACTION SUGGESTED > 7.0 Performed By: #### P T #### [facility] [address] [place] [address] Dr. Hugh Landis Glucose [Mass/Vol] 140 mg/dL Normal [facility] Comment on above: Performed By: #### P T #### [facility] [address] [address] [address] Hugh Landis HbA1c (Bld) [Mass fraction] 6.5 % Critically high 4.5-6.2 [facility] Comment on above: Performed By: #### P T #### [facility] [address] [place] [address] Dr. Hugh Landis IRON AND TIBCon 08-08-2021 % SATURATION 13.6 % Normal [facility] Comment on above: Performed By: #### C MP, LIPID, TSH #### [facility] [address] [place] [address] Dr. Hugh Landis Iron [Mass/Vol] 45.0 ug/dL Critically low 65.0-175.0 [facility] Comment on above: Performed By: #### C MP, LIPID, TSH #### [facility] [address] [place] [address] Dr. Hugh Landis TIBC DIRECT 332.0 ug/dL Normal 250.0-450.0 [facility] Comment on above: Performed By: #### C MP, LIPID, TSH #### [facility] [address] [place] [address] Dr. Hugh Landis LIPID PROFILEon 08-08-2021 CHOL-HDL RATIO NORM SEE BELOW Normal [facility] Comment on above: Result Comment: 3.3 - 4.4 LOW RISK 4.4 - 7.1 AVERAGE RISK 7.1 - 11.0 MODERATE RISK >11.0 HIGH RISK Performed By: #### C MP, LIPID, TSH #### [facility] [address] [place] [address] Dr. Hugh Landis Cholesterol [Mass/Vol] 187 mg/dL Normal <=200 [facility] Comment on above: Performed By: #### C MP, LIPID, TSH #### [facility] [address] [address] [address] Hugh Landis Cholesterol in HDL [Mass/Vol] 51 mg/dL Normal 40-60 [facility] Comment on above: Performed By: #### C MP, LIPID, TSH #### [facility] [address] [address] [address] Hugh Landis Cholesterol in LDL [Mass/Vol] 101.8 mg/dL Normal [facility] Comment on above: Performed By: #### C MP, LIPID, TSH #### [facility] [address] [place] [address] Dr. Hugh Landis Cholesterol.total/Ch olesterol in HDL [Mass ratio] 3.7 {ratio} Normal [facility] Comment on above: Performed By: #### C MP, LIPID, TSH #### [facility] [address] [address] [address] Hugh Landis HDL NORMAL > or = 60 mg/dl - LO W CARDIOVASCULAR RISK <40 mg/dl - HIGH CARDIOVASCULAR RISK Normal [facility] Comment on above: Performed By: #### C MP, LIPID, TSH #### [facility] [address] [place] [address] Dr. Hugh Landis LDL CALC NORMAL SEE BELOW Normal [facility] Comment on above: Result Comment: <100 mg/dl OPTIMAL 100 - 129 mg/dl NEAR OR ABOVE OPTIMAL 130 - 159 mg/dl BORDERLINE HIGH 160 - 189 mg/dl HIGH >190 mg/dl VERY HIGH Performed By: #### C MP, LIPID, TSH #### [facility] [address] [address] [address] Hugh Landis Triglyceride [Mass/Vol] 171 mg/dL Critically high <=150 [facility] Comment on above: Performed By: #### C MP, LIPID, TSH #### [facility] [address] [address] [address] Hugh Landis VLDL CALC 34.2 mg/dL Normal [facility] Comment on above: Performed By: #### C MP, LIPID, TSH #### [facility] [address] [address] [address] Hugh Landis PROF 14(COMP METB)on 022 Albumin [Mass/Vol] 3.6 g/dL Normal 3.4-5.0 [facility] Comment on above: Performed By: #### C MP, LIPID, TSH #### [facility] [address] [address] [address] Hugh Landis Albumin/Globulin [Mass ratio] 0.8 {ratio} Normal [facility] Comment on above: Performed By: #### C MP, LIPID, TSH #### [facility] [address] [address] [address] Hugh Landis ALP [Catalytic activity/Vol] 64 U/L Normal 46-116 [facility] Comment on above: Performed By: #### C MP, LIPID, TSH #### [facility] [address] [place] [address] Dr. Hugh Landis ALT [Catalytic activity/Vol] 28 U/L Normal 16-63 [facility] Comment on above: Performed By: #### C MP, LIPID, TSH #### [facility] [address] [place] [address] Dr. Hugh Landis Anion gap [Moles/Vol] 15.0 mmol/L Normal [facility] Comment on above: Performed By: #### C MP, LIPID, TSH #### [facility] [address] [address] [address] Hugh Landis AST [Catalytic activity/Vol] 14 U/L Critically low 15-37 [facility] Comment on above: Performed By: #### C MP, LIPID, TSH #### [facility] [address] [address] [address] Hugh Landis Bilirubin [Mass/Vol] 0.5 mg/dL Normal 0.2-1.0 [facility] Comment on above: Performed By: #### C MP, LIPID, TSH #### [facility] [address] [place] [address] Dr. Hugh Landis Calcium [Mass/Vol] 9.6 mg/dL Normal 8.5-10.1 [facility] Comment on above: Performed By: #### C MP, LIPID, TSH #### [facility] [address] [place] [address] Dr. Hugh Landis Chloride [Moles/Vol] 105 mmol/L Normal 98-107 [facility] Comment on above: Performed By: #### C MP, LIPID, TSH #### [facility] [address] [place] [address] Dr. Hugh Landis CO2 [Moles/Vol] 23.5 mmol/L Normal 21.0-32.0 [facility] Comment on above: Performed By: #### C MP, LIPID, TSH #### [facility] [address] [place] [address] Dr. Hugh Landis Creatinine [Mass/Vol] 2.69 mg/dL Critically high 0.70-1.30 [facility] Comment on above: Performed By: #### C MP, LIPID, TSH #### [facility] [address] [place] [address] Dr. Hugh Landis EGFR-AF PALESTINIAN 30 mL/min/1.73m2 Critically low >=60 [facility] Comment on above: Performed By: #### C MP, LIPID, TSH #### [facility] [address] [place] [address] Dr. Hugh Landis EGFR-NON AF PALESTINIAN 25 mL/min/1.73m2 Critically low >=60 [facility] Comment on above: Performed By: #### C MP, LIPID, TSH #### [facility] [address] [place] [address] Dr. Hugh Landis Globulin (S) [Mass/Vol] 4.3 g/dL Normal [facility] Comment on above: Performed By: #### C MP, LIPID, TSH #### [facility] [address] [place] [address] Dr. Hugh Landis Glucose [Mass/Vol] 80 mg/dL Normal 74-106 [facility] Comment on above: Performed By: #### C MP, LIPID, TSH #### [facility] [address] [address] [address] Hugh Landis Potassium [Moles/Vol] 5.5 mmol/L Critically high 3.5-5.1 [facility] Comment on above: Performed By: #### C MP, LIPID, TSH #### [facility] [address] [place] [address] Dr. Hugh Landis Protein [Mass/Vol] 7.9 g/dL Normal 6.4-8.2 [facility] Comment on above: Performed By: #### C MP, LIPID, TSH #### [facility] [address] [place] [address] Dr. Hugh Landis Sodium [Moles/Vol] 138 mmol/L Normal 136-145 [facility] Comment on above: Performed By: #### C MP, LIPID, TSH #### [facility] [address] [place] [address] Dr. Hugh Landis Urea nitrogen [Mass/Vol] 47.0 mg/dL Critically high 7.0-18.0 [facility] Comment on above: Performed By: #### C MP, LIPID, TSH #### [facility] [address] [place] [address] Dr. Hugh Landis Urea nitrogen/Creatinine [Mass ratio] 17.5 mg/mg Normal [facility] Comment on above: Performed By: #### C MP, LIPID, TSH #### [facility] [address] [place] [address] Dr. Hugh Landis TSHon 08-08-2021 TSH 1.069 uIU/mL Normal 0.358-3.740 [facility] Comment on above: Performed By: #### C MP, LIPID, TSH #### [facility] [address] [place] [address] Dr. Hugh Landis TSH RANGE SEE BELOW Normal [facility] Comment on above: Result Comment: <0.3 4 UIU/ml HYPERTHYROID 0.34-5.60 UIU/ml EUTHYROID >5.60 UIU/ml HYPOTHYROID Performed By: #### C MP, LIPID, TSH #### [facility] [address] [place] [address] Dr. Hugh Landis VITAMIN B12on 08-08-2021 Cobalamin (Vitamin B12) [Mass/Vol] 336.0 pg/mL Normal 193.0-986.0 [facility] Comment on above: Performed By: #### C MP, LIPID, TSH #### [facility] [address] [address] [address] Hugh Landis VITAMIN D 25 OHon 08-08-2021 VIT D 25-OH 36.6 ng/mL Normal [facility] Comment on above: Performed By: #### C MP, LIPID, TSH #### [facility] [address] [address] [address] Hugh Landis VIT D RANGES SEE BELOW Normal [facility] Comment on above: Result Comment: <20 ng/mL Vit D deficient 20 - <30 ng/mL Vit D insufficient 30 - 100 ng/mL Vit D sufficient >100 ng/mL Potential Toxicity Performed By: #### C MP, LIPID, TSH #### [facility] [address] [address] [address] Hugh Landis KNEE RIGHT 3 VWSon 2 KNEE RIGHT 3 S [facility] Department of Radiology [address] [place] [id number] ======== Patient Name: SUKHDEEP SIMENTAL : [...] patella suggesting quadriceps tendon disruption. Electronically signed: Cloe Richomnd. Transcribed by: [email or web address], User Resident: Electronically Signed by: COLE RICHMOND @ 07/23/2021 10:50 PM Normal [facility] Comment on above: Order Comment: Evalu ate CBCon 07-18-2021 Erythrocyte distribution width (RBC) [Ratio] 13.5 % Normal 11.8-14.4 [facility] Comment on above: Performed By: #### C BC, PT, PTT, BMP #### [facility] [address] [place] [address] Earring Maker: Good Melendez MD #### ANICOT #### [facility] [address] [place], [place] [id number] Earring Maker: Troy Link MD Hematocrit (Bld) [Volume fraction] 39.1 % Low 40.7-50.3 [facility] Comment on above: Performed By: #### C BC, PT, PTT, BMP #### [facility] [address] [place] [address] Earring Maker: Good Melendez MD #### ANICOT #### [facility] [address] [place] [address] Earring Maker: Troy Link MD Hemoglobin (Bld) [Mass/Vol] 12.3 g/dL Low 13.0-17.0 [facility] Comment on above: Performed By: #### C BC, PT, PTT, BMP #### [address] [address] Earring Maker: Good Melendez MD #### ANICOT #### [facility] [address] [place] [address] Earring Maker: Troy Link MD MCH (RBC) [Entitic mass] 28.8 pg Normal 25.2-33.5 [facility] Comment on above: Performed By: #### C BC, PT, PTT, BMP #### [address] [address] Earring Maker: Good Melendez MD #### ANICOT #### [facility] [address] [place] [address] Earring Maker: Troy Link MD MCHC (RBC) [Mass/Vol] 31.5 g/dL Normal 28.4-34.8 [facility] Comment on above: Performed By: #### C BC, PT, PTT, BMP #### [facility] [employer] [address] [place] [address] Earring Maker: Good Melendez MD #### ANICOT #### [facility] [address] [place] [address] Earring Maker: Troy Link MD MCV (RBC) [Entitic vol] 91.6 fL Normal 82.6-102.9 [facility] Comment on above: Performed By: #### C BC, PT, PTT, BMP #### [address] [address] Earring Maker: Good Melendez MD #### ANICOT #### [facility] [address] [place], [place] [id number] Earring Maker: Troy Link MD NRBC Automated 0.0 per 100 WBC Normal 0.0 [facility] Comment on above: Performed By: #### C BC, PT, PTT, BMP #### [address] [address] Earring Maker: Good Melendez MD #### ANICOT #### [facility] [address] [place], [place] [id number] Earring Maker: Troy Link MD Platelet mean volume (Bld) [Entitic vol] 9.7 fL Normal 8.1-13.5 [facility] Comment on above: Performed By: #### C BC, PT, PTT, BMP #### [address] [address] Earring Maker: Good Melendez MD #### ANICOT #### [facility] [address] [place] [address] Earring Maker: Troy Link MD Platelets (Bld) [#/Vol] 190 10*3/uL Normal 138-453 [facility] Comment on above: Performed By: #### C BC, PT, PTT, BMP #### [address] [address] Earring Maker: Good Melendez MD #### ANICOT #### [facility] [address] [place], [place] [id number] Earring Maker: Troy Link MD RBC (Bld) [#/Vol] 4.27 10*6/uL Normal 4.21-5.77 [facility] Comment on above: Performed By: #### C BC, PT, PTT, BMP #### [facility] [address] [place] [address] Earring Maker: Good Melendez MD #### ANICOT #### [facility] [address] [place], [place] [id number] Earring Maker: Troy Link MD WBC (Bld) [#/Vol] 8.7 10*3/uL Normal 3.5-11.3 [facility] Comment on above: Performed By: #### C BC, PT, PTT, BMP #### [address] [address] Earring Maker: Good Melendez MD #### ANICOT #### [facility] [address] [place] [address] Earring Maker: Troy Link MD APTTon 07-17-2021 aPTT Coag (Bld) [Time] 20.8 s Normal 20.5-30.5 [facility] Comment on above: Result Comment: IV Heparin Therapy Range: 48.6-77.8 Performed By: #### C BC, PT, PTT, BMP #### [address] [address] Earring Maker: Good Melendez MD #### ANICOT #### [facility] [address] [place], [place] [id number] Earring Maker: Troy Link MD aPTT Coag (Bld) [Time] 37.9 s High 20.5-30.5 [facility] Comment on above: Result Comment: IV Heparin Therapy Range: 48.6-77.8 Performed By: #### C BC, PT, PTT, BMP #### [facility] [address] [place] [address] Earring Maker: Good Melendez MD #### ANICOT #### [facility] [address] [place] [address] Earring Maker: Troy Link MD aPTT Coag (Bld) [Time] 78.1 s High 20.5-30.5 [facility] Comment on above: Result Comment: IV Heparin Therapy Range: 48.6-77.8 Performed By: #### C BC, PT, PTT, BMP #### [address] [id number] Earring Maker: Good Melendez MD #### ANICOT #### [facility] [address] [place] [address] Earring Maker: Troy Link MD Basic Metab w/rfx MGon 07-17 (cont.) Normal [facility] Comment on above: Result Comment: Aver age GFR for 50-59 years old: 93 mL/min/1.73sq m Chronic Kidney Disease: <60 mL/min/1.73sq m Kidney failure: <15 mL/min/1.73sq m eGFR calculated using average adult body mass. Additional eGFR calculator available at: http://www.CannaBuild.com/multiple_crcl_2012.htm Performed By: #### C BC, PT, PTT, BMP #### [address] [address] Earring Maker: Good Melendez MD #### ANICOT #### [facility] [address] [place] [address] Earring Maker: Troy Link MD Anion gap [Moles/Vol] 9 mmol/L Normal 9-17 [facility] Comment on above: Performed By: #### C BC, PT, PTT, BMP #### [facility] [employer] [address] [place] [address] Earring Maker: Good Melendez MD #### ANICOT #### [facility] [address] [place] [address] Earring Maker: Troy Link MD Calcium [Mass/Vol] 9.3 mg/dL Normal 8.6-10.4 [facility] Comment on above: Performed By: #### C BC, PT, PTT, BMP #### [address] [address] Earring Maker: Good Melendez MD #### ANICOT #### [facility] [address] [place], [place] [id number] Earring Maker: Troy Link MD Chloride [Moles/Vol] 106 mmol/L Normal 98-107 [facility] Comment on above: Performed By: #### C BC, PT, PTT, BMP #### [address] [id number] Earring Maker: Good Melendez MD #### ANICOT #### [facility] [address] [place] [address] Earring Maker: Troy Link MD CO2 [Moles/Vol] 23 mmol/L Normal 20-31 [facility] Comment on above: Performed By: #### C BC, PT, PTT, BMP #### [address] [id number] Earring Maker: Good Melendez MD #### ANICOT #### [facility] [address] [place] [address] Earring Maker: Troy Link MD Creatinine [Mass/Vol] 1.40 mg/dL High 0.70-1.20 [facility] Comment on above: Performed By: #### C BC, PT, PTT, BMP #### [address] [address] Earring Maker: Good Melendez MD #### ANICOT #### [facility] [address] [place], [place] [id number] Earring Maker: Troy Link MD GFR, Amer >60 Normal >60 [facility] Comment on above: Performed By: #### C BC, PT, PTT, BMP #### [address] [address] Earring Maker: Good Melendez MD #### ANICOT #### [facility] [address] [place], [place] [id number] Earring Maker: Troy Link MD GFR,non Amer 52 mL/min Low >60 [facility] Comment on above: Performed By: #### C BC, PT, PTT, BMP #### [address] [id number] Earring Maker: Good Melendez MD #### ANICOT #### [facility] [address] [place], [place] [id number] Earring Maker: Troy Link MD Glucose [Mass/Vol] 170 mg/dL High 70-99 [facility] Comment on above: Performed By: #### C BC, PT, PTT, BMP #### [address] [id number] Earring Maker: Good Melendez MD #### ANICOT #### [facility] [address] [place], [place] [id number] Earring Maker: Troy Link MD Potassium [Moles/Vol] 4.6 mmol/L Normal 3.7-5.3 [facility] Comment on above: Performed By: #### C BC, PT, PTT, BMP #### [address] [id number] Earring Maker: Good Melendez MD #### ANICOT #### [facility] [address] [place], [place] [id number] Earring Maker: Troy Link MD Sodium [Moles/Vol] 138 mmol/L Normal 135-144 [facility] Comment on above: Performed By: #### C BC, PT, PTT, BMP #### [facility] [address] [place] [address] Earring Maker: Good Melendez MD #### ANICOT #### [facility] [address] [place], [place] [id number] Earring Maker: Troy Link MD Urea nitrogen [Mass/Vol] 33 mg/dL High 6-20 [facility] Comment on above: Performed By: #### C BC, PT, PTT, BMP #### [facility] [employer] [address] [place] [address] Earring Maker: Good Melendez MD #### ANICOT #### [facility] [address] [place] [address] Earring Maker: Troy Link MD Basic Metabolic Profon 07-17 (cont.) Normal [facility] Comment on above: Result Comment: Aver age GFR for 50-59 years old: 93 mL/min/1.73sq m Chronic Kidney Disease: <60 mL/min/1.73sq m Kidney failure: <15 mL/min/1.73sq m eGFR calculated using average adult body mass. Additional eGFR calculator available at: http://www.CannaBuild.Eloquii/multiple_crcl_2012.htm Performed By: #### C BC, PT, PTT, BMP #### [facility] [address] [place] [address] Earring Maker: Good Melendez MD #### ANICOT #### [facility] [address] [place] [address] Earring Maker: Troy Link MD Anion gap [Moles/Vol] 8 mmol/L Low 9-17 [facility] Comment on above: Performed By: #### C BC, PT, PTT, BMP #### [facility] [address] [place] [address] Earring Maker: Good Melendez MD #### ANICOT #### [facility] [address] [place], [place] [id number] Earring Maker: Troy Link MD Calcium [Mass/Vol] 9.5 mg/dL Normal 8.6-10.4 [facility] Comment on above: Performed By: #### C BC, PT, PTT, BMP #### [address] [address] Earring Maker: Good Melendez MD #### ANICOT #### [facility] [address] [place], [place] [id number] Earring Maker: Troy Link MD Chloride [Moles/Vol] 104 mmol/L Normal 98-107 [facility] Comment on above: Performed By: #### C BC, PT, PTT, BMP #### [address] [address] Earring Maker: Good Melendez MD #### ANICOT #### [facility] [address] [place], [place] [id number] Earring Maker: Troy Link MD CO2 [Moles/Vol] 23 mmol/L Normal 20-31 [facility] Comment on above: Performed By: #### C BC, PT, PTT, BMP #### [address] [address] Earring Maker: Good Melendez MD #### ANICOT #### [facility] [address] [place], [place] [id number] Earring Maker: Troy Link MD Creatinine [Mass/Vol] 1.34 mg/dL High 0.70-1.20 [facility] Comment on above: Performed By: #### C BC, PT, PTT, BMP #### [address] [address] Earring Maker: Good Melendez MD #### ANICOT #### [facility] [address] [place] [address] Earring Maker: Troy Link MD GFR, Amer >60 Normal >60 [facility] Comment on above: Performed By: #### C BC, PT, PTT, BMP #### [address] [address] Earring Maker: Good Melendez MD #### ANICOT #### [facility] [address] [place] [address] Earring Maker: Troy Link MD GFR,non Amer 55 mL/min Low >60 [facility] Comment on above: Performed By: #### C BC, PT, PTT, BMP #### [address] [address] Earring Maker: Good Melendez MD #### ANICOT #### [facility] [address] [place], [place] [id number] Earring Maker: Troy Link MD Glucose [Mass/Vol] 136 mg/dL High 70-99 [facility] Comment on above: Performed By: #### C BC, PT, PTT, BMP #### [address] [address] Earring Maker: Good Melendez MD #### ANICOT #### [facility] [address] [place] [address] Earring Maker: Troy Link MD Potassium [Moles/Vol] 4.7 mmol/L Normal 3.7-5.3 [facility] Comment on above: Performed By: #### C BC, PT, PTT, BMP #### [address] [address] Earring Maker: Good Melendez MD #### ANICOT #### [facility] [address] [place], [place] [id number] Earring Maker: Troy Link MD Sodium [Moles/Vol] 135 mmol/L Normal 135-144 [facility] Comment on above: Performed By: #### C BC, PT, PTT, BMP #### [facility] [address] [place] [address] Earring Maker: Good Melendez MD #### ANICOT #### [facility] [address] [place] [address] Earring Maker: Troy Link MD Urea nitrogen [Mass/Vol] 31 mg/dL High 6-20 [facility] Comment on above: Performed By: #### C BC, PT, PTT, BMP #### [facility] [address] [place] [id number] Earring Maker: Good Melendez MD #### ANICOT #### [facility] [address] [place], [place] [id number] Earring Maker: Troy Link MD Fibrinogenon 07-17-2021 Fibrinogen 404 mg/dL Normal 140-420 [facility] Comment on above: Performed By: #### C BC, PT, PTT, BMP #### [facility] [address] [place] [address] Earring Maker: Good Melendez MD #### ANICOT #### [facility] [address] [place], [place] [id number] Earring Maker: Troy Link MD Fibrinogen 395 mg/dL Normal 140-420 [facility] Comment on above: Performed By: #### C BC, PT, PTT, BMP #### [facility] [address] [place] [address] Earring Maker: Good Melendez MD #### ANICOT #### [facility] [address] [place] [address] Earring Maker: Troy Link MD Hemoglobin A1Con 07-17-2021 Glucose [Mass/Vol] 169 mg/dL Normal [facility] Comment on above: Result Comment: The ADA and AACC recommend providing the estimated average glucose result to permit better patient understanding of their HBA1c result. Performed By: #### C BC, PT, PTT, BMP #### [facility] [employer] [address] [place] [address] Earring Maker: Good Melendez MD #### ANICOT #### [facility] [address] [place], [place] [id number] Earring Maker: Troy Link MD HbA1c (Bld) [Mass fraction] 7.5 % High 4.0-6.0 [facility] Comment on above: Performed By: #### C BC, PT, PTT, BMP #### [address] [id number] Earring Maker: Good Melendez MD #### ANICOT #### [facility] [address] [place] [address] Earring Maker: Troy Link MD PTon 07-17-2021 INR Coag (PPP) [Relative time] 1.2 {INR} Normal [facility] Comment on above: Result Comment: Therapeutic Range: Moderate Anticoagulant Intensity: INR = 2.0-3.0 High Anticoagulant Intensity: INR = 2.5-3.5 Performed By: #### C BC, PT, PTT, BMP #### [facility] [employer] [address] [place] [address] Earring Maker: Good Melendez MD #### ANICOT #### [facility] [address] [place] [address] Earring Maker: Troy Link MD PT Coag (PPP) [Time] 12.6 s High 9.1-12.3 [facility] Comment on above: Performed By: #### C BC, PT, PTT, BMP #### [facility] [employer] [address] [place] [address] Earring Maker: Good Melendez MD #### ANICOT #### [facility] [address] [place] [address] Earring Maker: Troy Link MD Troponinon 07-17-2021 Troponin, High Sens 38 ng/L High 0-22 [facility] Comment on above: Result Comment: High Sensitivity Troponin values cannot be compared with other Troponin methodologies. Patients with high levels of Biotin oral intake (i.e >5mg/day) may have falsely decreased Troponin levels. Samples collected within 8 hours of biotin intake may require additional information for diagnosis. Performed By: #### C BC, PT, PTT, BMP #### [address] [address] Earring Maker: Good Melendez MD #### ANICOT #### [facility] [address] [place] [address] Earring Maker: Troy Link MD APTTon 5 aPTT Coag (Bld) [Time] 51.1 s High 20.5-30.5 [facility] Comment on above: Result Comment: IV Heparin Therapy Range: 48.6-77.8 Performed By: #### C BC, PT, PTT, BMP #### [address] [address] Earring Maker: Good Melendez MD #### ANICOT #### [facility] [address] [place] [address] Earring Maker: Troy Link MD aPTT Coag (Bld) [Time] 31.1 s High 20.5-30.5 [facility] Comment on above: Result Comment: IV Heparin Therapy Range: 48.6-77.8 Performed By: #### C BC, PT, PTT, BMP #### [facility] [employer] [address] [place] [address] Earring Maker: Good Melendez MD #### ANICOT #### [facility] [address] [place] [address] Earring Maker: Troy Link MD Brain Natri. Peptideon 07-16 Natriuretic peptide B (Bld) [Mass/Vol] 1492 pg/mL High <300 [facility] Comment on above: Result Comment: An age-independent cutoff point of 300 pg/ml has a 98% negative predictive value excluding acute heart failure. Performed By: #### C BC, PT, PTT, BMP #### [facility] [address] [place] [address] Earring Maker: Good Melendez MD #### ANICOT #### [facility] [address] [place] [address] Earring Maker: Troy Link MD ROBERTS CHAPELon 07-16-2021 Erythrocyte distribution width (RBC) [Ratio] 13.6 % Normal 11.8-14.4 [facility] Comment on above: Performed By: #### C BC, PT, PTT, BMP #### [address] [address] Earring Maker: Good Melendez MD #### ANICOT #### [facility] [address] [place] [address] Earring Maker: Troy Link MD Hematocrit (Bld) [Volume fraction] 40.3 % Low 40.7-50.3 [facility] Comment on above: Performed By: #### C BC, PT, PTT, BMP #### [facility] [address] [place] [address] [phone] Earring Maker: Good Melendez MD #### ANICOT #### [facility] [address] [place] [address] Earring Maker: Troy Link MD Hemoglobin (Bld) [Mass/Vol] 13.0 g/dL Normal 13.0-17.0 [facility] Comment on above: Performed By: #### C BC, PT, PTT, BMP #### [address] [phone] Earring Maker: Good Melendez MD #### ANICOT #### [facility] [address] [place] [address] Earring Maker: Troy Link MD MCH (RBC) [Entitic mass] 28.7 pg Normal 25.2-33.5 [facility] Comment on above: Performed By: #### C BC, PT, PTT, BMP #### [address] [phone] Earring Maker: Good Melendez MD #### ANICOT #### [facility] [address] [place] [address] [phone] Earring Maker: Troy Link MD MCHC (RBC) [Mass/Vol] 32.3 g/dL Normal 28.4-34.8 [facility] Comment on above: Performed By: #### C BC, PT, PTT, BMP #### [address] [phone] Earring Maker: Good Melendez MD #### ANICOT #### [facility] [address] [place], [place] [id number] Earring Maker: Troy Link MD MCV (RBC) [Entitic vol] 89.0 fL Normal 82.6-102.9 [facility] Comment on above: Performed By: #### C BC, PT, PTT, BMP #### [address] [phone] Earring Maker: Good Melendez MD #### ANICOT #### [facility] [address] [place], [place] [id number] Earring Maker: Troy Link MD NRBC Automated 0.0 per 100 WBC Normal 0.0 [facility] Comment on above: Performed By: #### C BC, PT, PTT, BMP #### [address] [address] Earring Maker: Good Melendez MD #### ANICOT #### [facility] [address] [place] [address] Earring Maker: Troy Link MD Platelet mean volume (Bld) [Entitic vol] 9.6 fL Normal 8.1-13.5 [facility] Comment on above: Performed By: #### C BC, PT, PTT, BMP #### [address] [address] Earring Maker: Good Melendez MD #### ANICOT #### [facility] [address] [place] [address] Earring Maker: Troy Link MD Platelets (Bld) [#/Vol] 203 10*3/uL Normal 138-453 [facility] Comment on above: Performed By: #### C BC, PT, PTT, BMP #### [address] [address] Earring Maker: Good Melendez MD #### ANICOT #### [facility] [address] [place] [address] Earring Maker: Troy Link MD RBC (Bld) [#/Vol] 4.53 10*6/uL Normal 4.21-5.77 [facility] Comment on above: Performed By: #### C BC, PT, PTT, BMP #### [address] [address] Earring Maker: Good Melendez MD #### ANICOT #### [facility] [address] [place] [address] Earring Maker: Troy Link MD WBC (Bld) [#/Vol] 6.8 10*3/uL Normal 3.5-11.3 [facility] Comment on above: Performed By: #### C BC, PT, PTT, BMP #### [facility] [address] [place] [address] Earring Maker: Good Melendez MD #### ANICOT #### [facility] [address] [place] [address] Earring Maker: Troy Link MD Troponinon 07-16-2021 Troponin, High Sens 59 ng/L Critically high 0- [facility] Comment on above: Result Comment: High Sensitivity Troponin values cannot be compared with other Troponin methodologies. Patients with high levels of Biotin oral intake (i.e >5mg/day) may have falsely decreased Troponin levels. Samples collected within 8 hours of biotin intake may require additional information for diagnosis. Performed By: #### C BC, PT, PTT, BMP #### [facility] [address] [place] [address] Earring Maker: Good Melendez MD #### ANICOT #### [facility] [address] [place] [address] Earring Maker: Troy Link MD EKG 12 LeadOrdered By: Matias Varela on 05-26-2021 Atrial Rate 108 BPM [employer] Phone: P Lyons -96 degrees [employer] Phone: P-R Interval 192 ms [employer] Phone: Q-T Interval 348 ms [employer] Phone: QRS Duration 94 ms [employer] Phone: QTc Calculation (Bazett) 466 ms [employer] Phone: R Lyons -116 degrees [employer] Phone: T Lyons -114 degrees [employer] Phone: Ventricular Rate 108 BPM [email or web address] Work Phone: [employer]o Work Phone: EKG 12 Leadon 05-26-2021 Arm lead reversal Sinus Tachycardia V Leads placement error Repeat ECG When compared with ECG of 08-MAY-2021 11:42, Significant changes have occurred [facility] STV Matias Andrade MD - 05/26/2021 Arm lead reversal Sinus Tachycardia V Leads placement error Repeat ECG When compared with ECG of 08-MAY-2021 11:42, Significant changes have occurred [employer] Work Phone: SURGICAL PATHOLOGY REPORTon 05-26-2021 Surgical [...] with no areas of granularity or masses. [employer] sections 1cs. tm Microscopic Description Sections of gastric wall show lamina propria without evidence of significant inflammation. There is no evidence of intestinal metaplasia or dysplasia. There is no evidence of organisms suspicious for Helicobacter with the routine H&E stain. SURGICAL PATHOLOGY CONSULTATION Patient Name: SUKHDEEP SIMENTAL [facility] Rec: [id number] Path Number: [id number] [facility] [email or web address] [facility] ANATOMIC PATHOLOGY [address] [place] [address]. [place], [place] [address] [facility] [employer] Basic Metabolic Panelon 03-3 Anion gap [Moles/Vol] 10 mmol/L 9 - 17 mmol/L [facility] [employer] Calcium [Mass/Vol] 9.1 mg/dL 8.6 - 10. 4 mg/dL [facility] Chloride [Moles/Vol] 106 mmol/L 98 - 10 7 mmol/L [employer] CO2 [Moles/Vol] 23 mmol/L 20 - 31 mmol/L [facility] Creatinine [Mass/Vol] 1.1 mg/dL 0.70 - 1.20 mg/dL [facility] [employer] GFR >60 >60 mL/min [facility] [place] GFR Non- >60 >60 mL/min [facility] GFR/1.73 sq M.predicted MDRD (S/P/Bld) [Vol rate/Area] [facility] Comment on above: Average GFR for 50-5 9 years old: 93 mL/min/1.73sq m Chronic Kidney Disease: <60 mL/min/1.73sq m Kidney failure: <15 mL/min/1.73sq m eGFR calculated using average adult body mass. Additional eGFR calculator available at: http://www.Yunno/eMar_crcl_2011.htm Glucose [Mass/Vol] 127 mg/dL High 70 - 99 mg/dL [facility] Interpretation and review of laboratory results Abnormal [facility] [employer] Potassium [Moles/Vol] 4.8 mmol/L 3.7 - 5.3 mmol/L [facility] [employer] Sodium [Moles/Vol] 139 mmol/L 135 - 144 mmol/L [facility] Urea nitrogen (BldV) [Mass/Vol] 24 mg/dL High 6 - 20 mg/dL [facility] Basic Metabolic Profon 05-25 (cont.) Normal [facility] Comment on above: Result Comment: Aver age GFR for 50-59 years old: 93 mL/min/1.73sq m Chronic Kidney Disease: <60 mL/min/1.73sq m Kidney failure: <15 mL/min/1.73sq m eGFR calculated using average adult body mass. Additional eGFR calculator available at: http://www.Yunno/multiple_crcl_2011.htm Performed By: #### C BC, PT, PTT, BMP #### [facility] [address] [place] [address] Earring Maker: Good Melendez MD #### KATIEICOT #### [facility] [address] [place] [address] Earring Maker: Troy Link MD Anion gap [Moles/Vol] 10 mmol/L Normal 9-17 [facility] Comment on above: Performed By: #### C BC, PT, PTT, BMP #### [address] [address] Earring Maker: Good Melendez MD #### ANICOT #### [facility] [address] [place], [place] [id number] Earring Maker: Troy Link MD Calcium [Mass/Vol] 9.1 mg/dL Normal 8.6-10.4 [facility] Comment on above: Performed By: #### C BC, PT, PTT, BMP #### [address] [phone] Earring Maker: Good Melendez MD #### ANICOT #### [address] [address] Earring Maker: Troy Link MD Chloride [Moles/Vol] 106 mmol/L Normal 98-107 [facility] Comment on above: Performed By: #### C BC, PT, PTT, BMP #### [address] [address] Earring Maker: Good Melendez MD #### ANICOT #### [address] [phone] Earring Maker: Troy Link MD CO2 [Moles/Vol] 23 mmol/L Normal 20-31 [facility] Comment on above: Performed By: #### C BC, PT, PTT, BMP #### [address] [address] Earring Maker: Good Melendez MD #### ANICOT #### [facility] [address] [place] [address] Earring Maker: Troy Link MD Creatinine [Mass/Vol] 1.10 mg/dL Normal 0.70-1.20 [facility] Comment on above: Performed By: #### C BC, PT, PTT, BMP #### [address] [address] Earring Maker: Good Melendez MD #### ANICOT #### [facility] [address] [place], [place] [id number] Earring Maker: Troy Link MD GFR, Amer >60 Normal >60 [facility] Comment on above: Performed By: #### C BC, PT, PTT, BMP #### [address] [address] Earring Maker: Good Melendez MD #### ANICOT #### [facility] [address] [place] [address] Earring Maker: Troy Link MD GFR,non Amer >60 Normal >60 [facility] Comment on above: Performed By: #### C BC, PT, PTT, BMP #### [address] [address] Earring Maker: Good Melendez MD #### ANICOT #### [facility] [address] [place], [place] [id number] Earring Maker: Troy Link MD Glucose [Mass/Vol] 127 mg/dL High 70-99 [facility] Comment on above: Performed By: #### C BC, PT, PTT, BMP #### [address] [address] Earring Maker: Good Melendez MD #### ANICOT #### [facility] [address] [place], [place] [id number] Earring Maker: Troy Link MD Potassium [Moles/Vol] 4.8 mmol/L Normal 3.7-5.3 [facility] Comment on above: Performed By: #### C BC, PT, PTT, BMP #### [facility] [employer] [facility] [place], [place] [phone] Earring Maker: Good Melendez MD #### ANICOT #### [facility] [address] [place], [place] [id number] Earring Maker: Troy Link MD Sodium [Moles/Vol] 139 mmol/L Normal 135-144 [facility] Comment on above: Performed By: #### C BC, PT, PTT, BMP #### [address] [phone] Earring Maker: Good Melendez MD #### ANICOT #### [facility] [address] [place] [address] Earring Maker: Troy Link MD Urea nitrogen [Mass/Vol] 24 mg/dL High 6-20 [facility] Comment on above: Performed By: #### C BC, PT, PTT, BMP #### [address] [phone] Earring Maker: Good Melendez MD #### ANICOT #### [facility] [address] [place] [address] Earring Maker: Troy Link MD CBCon 05-25-2021 Erythrocyte distribution width (RBC) [Ratio] 13.9 % Normal 11.8-14.4 [facility] Comment on above: Performed By: #### C BC, PT, PTT, BMP #### [address] [phone] Earring Maker: Good Melendez MD #### ANICOT #### [facility] [address] [place] [address] Earring Maker: Troy Link MD Hematocrit (Bld) [Volume fraction] 39.5 % Low 40.7-50.3 [facility] Comment on above: Performed By: #### C BC, PT, PTT, BMP #### [address] [phone] Earring Maker: Good Melendez MD #### ANICOT #### [facility] [address] [place], [place] [id number] Earring Maker: Troy Link MD Hemoglobin (Bld) [Mass/Vol] 12.2 g/dL Low 13.0-17.0 [facility] Comment on above: Performed By: #### C BC, PT, PTT, BMP #### [address] [phone] Earring Maker: Good Melendez MD #### ANICOT #### [facility] [address] [place] [address] [phone] Earring Maker: Troy Lnik MD MCH (RBC) [Entitic mass] 30.2 pg Normal 25.2-33.5 [facility] Comment on above: Performed By: #### C BC, PT, PTT, BMP #### [address] [phone] Earring Maker: Good Melendez MD #### ANICOT #### [facility] [address] [place], [place] [id number] Earring Maker: Troy Link MD MCHC (RBC) [Mass/Vol] 30.9 g/dL Normal 28.4-34.8 [facility] Comment on above: Performed By: #### C BC, PT, PTT, BMP #### [address] [phone] Earring Maker: Good Melendez MD #### ANICOT #### [facility] [address] [place], [place] [id number] Earring Maker: Troy Link MD MCV (RBC) [Entitic vol] 97.8 fL Normal 82.6-102.9 [facility] Comment on above: Performed By: #### C BC, PT, PTT, BMP #### [address] [address] Earring Maker: Good Melendez MD #### ANICOT #### [facility] [address] [place], [place] [id number] Earring Maker: Troy Link MD NRBC Automated 0.0 per 100 WBC Normal 0.0 [facility] Comment on above: Performed By: #### C BC, PT, PTT, BMP #### [address] [address] Earring Maker: Good Melendez MD #### ANICOT #### [facility] [address] [place], [place] [id number] Earring Maker: Troy Link MD Platelet mean volume (Bld) [Entitic vol] 8.8 fL Normal 8.1-13.5 [facility] Comment on above: Performed By: #### C BC, PT, PTT, BMP #### [address] [address] Earring Maker: Good Melendez MD #### ANICOT #### [facility] [address] [place], [place] [id number] Earring Maker: Troy Link MD Platelets (Bld) [#/Vol] 263 10*3/uL Normal 138-453 [facility] Comment on above: Performed By: #### C BC, PT, PTT, BMP #### [address] [address] Earring Maker: Good Melendez MD #### ANICOT #### [facility] [address] [place], [place] [id number] Earring Maker: Troy Link MD RBC (Bld) [#/Vol] 4.04 10*6/uL Low 4.21-5.77 [facility] Comment on above: Performed By: #### C BC, PT, PTT, BMP #### [facility] [address] [place] [address] Earring Maker: Godo Melendez MD #### ANICOT #### [facility] [address] [place], [place] [id number] Earring Maker: Troy Link MD WBC (Bld) [#/Vol] 10.8 10*3/uL Normal 3.5-11.3 [facility] Comment on above: Performed By: #### C BC, PT, PTT, BMP #### [facility] [place], [place] [id number] Earring Maker: Good Melendez MD #### ANICOT #### [facility] [address] [place] [address] Earring Maker: Troy Link MD Hematocrit (Bld) [Volume fraction] 39.5 % Low 40.7 - 50.3 % [facility] Hemoglobin.gastroint estinal spec 1 Ql (Stl) 12.2 g/dL Low 13.0 - 17.0 g/dL [facility] Interpretation and review of laboratory results Abnormal [facility] MCH (RBC) [Entitic mass] 30.2 pg 25.2 - 33.5 pg [facility] MCHC (RBC) [Mass/Vol] 30.9 g/dL 28.4 - 34.8 g/dL [facility] MCV (RBC) [Entitic vol] 97.8 fL 82.6 - 102.9 fL [facility] NRBC Automated 0.0 0.0 per 100 WBC [facility] Platelet distribution width (Bld) [Ratio] 13.9 % 11.8 - 14.4 % [facility] Platelet mean volume (Bld) [Entitic vol] 8.8 fL 8.1 - 13.5 fL [facility] Platelets (Bld) [#/Vol] 263 10*3/uL [facility] RBC (Bld) [#/Vol] 4.04 10*6/uL Low 4.21 - 5.7 7 m/uL [facility] WBC (Bld) [#/Vol] 10.8 10*3/uL [facility] Magnesiumon 05-25-2021 Magnesium [Mass/Vol] 1.9 mg/dL Normal 1.6-2.6 [facility] Comment on above: Performed By: #### C BC, PT, PTT, BMP #### [facility] [address] [place] [address] Earring Maker: Good Melendez MD #### ANAPARNAT #### [facility] [address] [place], [place] [id number] Earring Maker: rToy Link MD Magnesium [Mass/Vol] 1.9 mg/dL 1.6 - 2 .6 mg/dL [facility] [place] Surgical Pathologyon 022 Surgical Pathology (NOTE) -- [...] with no areas of granularity or masses. [employer] sections 1cs. tm Microscopic Description Sections of gastric wall show lamina propria without evidence of significant inflammation. There is no evidence of intestinal metaplasia or dysplasia. There is no evidence of organisms suspicious for Helicobacter with the routine CANDY stain. SURGICAL PATHOLOGY CONSULTATION Patient Name: SUKHDEEP SIMENTAL [facility] Rec: [id number] Path Number: [id number] [facility] ANATOMIC PATHOLOGY [address] [place] [phone] Normal [facility] Comment on above: Performed By: #### C BC, PT, PTT, BMP #### [facility] [address] [place] [address] Earring Maker: Good Melendez MD #### ANICOT #### [facility] [address] [place] [address] Earring Maker: Troy Link MD Basic Metabolic Panelon 04-27 Anion gap [Moles/Vol] 13 mmol/L 9 - 17 mmol/L [facility] Calcium [Mass/Vol] 9.1 mg/dL 8.6 - 10. 4 mg/dL [facility] Chloride [Moles/Vol] 102 mmol/L 98 - 10 7 mmol/L [employer] CO2 [Moles/Vol] 17 mmol/L Low 20 - 31 mmol/L [facility] Creatinine [Mass/Vol] 1.16 mg/dL 0.70 - 1.20 mg/dL [facility] GFR >60 >60 mL/min [employer] GFR Non- >60 >60 mL/min [facility] GFR/1.73 sq M.predicted MDRD (S/P/Bld) [Vol rate/Area] [facility] Comment on above: Average GFR for 50-5 9 years old: 93 mL/min/1.73sq m Chronic Kidney Disease: <60 mL/min/1.73sq m Kidney failure: <15 mL/min/1.73sq m eGFR calculated using average adult body mass. Additional eGFR calculator available at: http://www.CannaBuild.Eloquii/multiple_crcl_2011.htm Glucose [Mass/Vol] 203 mg/dL High 70 - 99 mg/dL [facility] Interpretation and review of laboratory results Abnormal [facility] Potassium [Moles/Vol] 4.2 mmol/L 3.7 - 5.3 mmol/L [facility] Sodium [Moles/Vol] 132 mmol/L Low 135 - 144 mmol/L [employer] Urea nitrogen (BldV) [Mass/Vol] 29 mg/dL High 6 - 20 mg/dL [employer] Basic Metabolic Profon 05-24 (cont.) Normal [facility] Comment on above: Result Comment: Aver age GFR for 50-59 years old: 93 mL/min/1.73sq m Chronic Kidney Disease: <60 mL/min/1.73sq m Kidney failure: <15 mL/min/1.73sq m eGFR calculated using average adult body mass. Additional eGFR calculator available at: http://www.CannaBuild.Eloquii/multiple_crcl_2012.htm Performed By: #### C BC, BMP #### [facility] [address] [place] [address] Earring Maker: Good Melendez MD Anion gap [Moles/Vol] 13 mmol/L Normal 9-17 [facility] Comment on above: Performed By: #### C BC, BMP #### [facility] [employer] [address] [place] [address] Earring Maker: Good Melendez MD Calcium [Mass/Vol] 9.1 mg/dL Normal 8.6-10.4 [facility] Comment on above: Performed By: #### C BC, BMP #### [facility] [employer] [address] [place] [address] Earring Maker: Good Melendez MD Chloride [Moles/Vol] 102 mmol/L Normal 98-107 [facility] Comment on above: Performed By: #### C BC, BMP #### [facility] [employer] [address] [place] [address] Earring Maker: Good Melendez MD CO2 [Moles/Vol] 17 mmol/L Low 20-31 [facility] Comment on above: Performed By: #### C BC, BMP #### [facility] [employer] [address] [place] [address] Earring Maker: Good Melendez MD Creatinine [Mass/Vol] 1.16 mg/dL Normal 0.70-1.20 [facility] Comment on above: Performed By: #### C BC, BMP #### [facility] [employer] [address] [place] [address] Earring Maker: Good Melendez MD GFR, Amer >60 Normal >60 [facility] Comment on above: Performed By: #### C BC, BMP #### [facility] [employer] [address] [place] [address] Earring Maker: Good Melendez MD GFR,non Amer >60 Normal >60 [facility] Comment on above: Performed By: #### C BC, BMP #### [facility] [employer] [address] [place] [address] Earring Maker: Good Melendez MD Glucose [Mass/Vol] 203 mg/dL High 70-99 [facility] Comment on above: Performed By: #### C BC, BMP #### [facility] [address] [place] [address] Earring Maker: Good Melendez MD Potassium [Moles/Vol] 4.2 mmol/L Normal 3.7-5.3 [facility] Comment on above: Performed By: #### C BC, BMP #### [facility] [employer] [address] [place] [address] Earring Maker: Good Melendez MD Sodium [Moles/Vol] 132 mmol/L Low 135-144 [facility] Comment on above: Performed By: #### C BC, BMP #### [facility] [employer] [address] [place] [address] Earring Maker: Good Melendez MD Urea nitrogen [Mass/Vol] 29 mg/dL High 6-20 [facility] Comment on above: Performed By: #### C BC, BMP #### [facility] [employer] [address] [place] [address] Earring Maker: Good Melendez MD CBCon 05-24-2021 Erythrocyte distribution width (RBC) [Ratio] 14.0 % Normal 11.8-14.4 [facility] Comment on above: Performed By: #### C BC, BMP #### [address] [address] Earring Maker: Good Melendez MD Hematocrit (Bld) [Volume fraction] 41.0 % Normal 40.7-50.3 [facility] Comment on above: Performed By: #### C BC, BMP #### [address] [address] Earring Maker: Good Melendez MD Hemoglobin (Bld) [Mass/Vol] 12.7 g/dL Low 13.0-17.0 [facility] Comment on above: Performed By: #### C BC, BMP #### [address] [address] Earring Maker: Good Melendez MD MCH (RBC) [Entitic mass] 29.5 pg Normal 25.2-33.5 [facility] Comment on above: Performed By: #### C BC, BMP #### [address] [address] Earring Maker: Good Melendez MD MCHC (RBC) [Mass/Vol] 31.0 g/dL Normal 28.4-34.8 [facility] Comment on above: Performed By: #### C BC, BMP #### [address] [address] Earring Maker: Good Melendez MD MCV (RBC) [Entitic vol] 95.3 fL Normal 82.6-102.9 [facility] Comment on above: Performed By: #### C BC, BMP #### [address] [address] Earring Maker: Good Melendez MD NRBC Automated 0.0 per 100 WBC Normal 0.0 [facility] Comment on above: Performed By: #### C BC, BMP #### [address] [address] Earring Maker: Good Melendez MD Platelet mean volume (Bld) [Entitic vol] 8.8 fL Normal 8.1-13.5 [facility] Comment on above: Performed By: #### C JASE, BMP #### [facility] [place] [address] Earring Maker: Good Melendez MD Platelets (Bld) [#/Vol] 273 10*3/uL Normal 138-453 [facility] Comment on above: Performed By: #### C JASE, BMP #### [facility] [place] [address] Earring Maker: Good Melendez MD RBC (Bld) [#/Vol] 4.30 10*6/uL Normal 4.21-5.77 [facility] Comment on above: Performed By: #### Bennett LAGUNA, BMP #### [facility] [employer] [address] [place] [address] Earring Maker: Good Melendez MD WBC (Bld) [#/Vol] 9.6 10*3/uL Normal 3.5-11.3 [facility] Comment on above: Performed By: #### C JASE, BMP #### [facility] [employer] [address] [place] [address] Earring Maker: Good Melendez MD CBC without Diffon Hematocrit (Bld) [Volume fraction] 41.0 % 40.7 - 50.3 % [facility] Hemoglobin.gastroint estinal spec 1 Ql (Stl) 12.7 g/dL Low 13.0 - 17.0 g/dL [facility] Interpretation and review of laboratory results Abnormal [facility] MCH (RBC) [Entitic mass] 29.5 pg 25.2 - 33.5 pg [facility] MCHC (RBC) [Mass/Vol] 31.0 g/dL 28.4 - 34.8 g/dL [facility] MCV (RBC) [Entitic vol] 95.3 fL 82.6 - 102.9 fL [facility] NRBC Automated 0.0 0.0 per 100 WBC [facility] Platelet distribution width (Bld) [Ratio] 14.0 % 11.8 - 14.4 % [facility] Platelet mean volume (Bld) [Entitic vol] 8.8 fL 8.1 - 13.5 fL [facility] Platelets (Bld) [#/Vol] 273 10*3/uL [facility] RBC (Bld) [#/Vol] 4.30 10*6/uL 4.21 - 5.7 7 m/uL [facility] WBC (Bld) [#/Vol] 9.6 10*3/uL [facility] COVID-19, Rapidon 05-24-2021 SARS-CoV-2 (COVID-19) RNA MUKUL+probe Ql (Unsp spec) Not detected Not Detected [facility] Comment on above: Rapid NAAT: The [...] management decisions. Fact sheet for Healthcare Providers: https://www.fda.gov/media/992503/download Fact sheet for Patients: https://www.fda.gov/media/030616/download Methodology: Isothermal Nucleic Acid Amplification Specimen Description .NASOPHARYNGEAL SWAB [facility] Calcium, Ionicon 05-24-2021 Calcium [Moles/Vol] 1.31 mmol/L Normal 1.13-1.33 [facility] Comment on above: Performed By: #### I BRAVO MG, BRITTANIE #### [facility] [employer] [address] [place], [place] [id number] Earring Maker: Good Melendez MD Calcium, Ionizedon 03-30-202 2 Calcium [Moles/Vol] 1.31 mmol/L 1.13 - 1 .33 mmol/L [facility] Magnesiumon 05-24-2021 Magnesium [Mass/Vol] 2.0 mg/dL Normal 1.6-2.6 [facility] Comment on above: Performed By: #### C BC, PT, PTT, BMP #### [facility] [address] [place], [place] [phone] Earring Maker: Good Melendez MD #### ANICOT #### [email or web address] [address] [place] [address] Earring Maker: Troy Link MD Magnesium [Mass/Vol] 2.0 mg/dL 1.6 - 2 .6 mg/dL [facility] No Panel Informationon 05-24 [facility] POC Glucose Fingerstickon Glucose [Mass/Vol] 199 mg/dL High 75 - 110 mg/dL [facility] Interpretation and review of laboratory results Abnormal [facility] Glucose [Mass/Vol] 209 mg/dL High 75 - 110 mg/dL [facility] Interpretation and review of laboratory results Abnormal [facility] POCT Glucoseon 05-24-2021 Glucose [Mass/Vol] 150 mg/dL High 74 - 100 mg/dL [facility] Interpretation and review of laboratory results Abnormal [facility] POTASSIUM (POC)on 05-24-2021 Potassium [Moles/Vol] 3.9 mmol/L 3.5 - 4.5 mmol/L [facility] Phosphoruson 05-24-2021 Phosphate [Mass/Vol] 3.8 mg/dL 2.5 - 4 .5 mg/dL [facility] Phosphorus, Inorg.on 022 Phosphorus, Inorg. 3.8 mg/dL Normal 2.5-4.5 [facility] Comment on above: Performed By: #### C BC, PT, PTT, BMP #### [facility] [address] [place], [place] [phone] Earring Maker: Good Melendez MD #### ANICOT #### [facility] [address] [place] [address] Earring Maker: Troy Link MD [id number] 05-24-2021 SARS-CoV-2 (COVID-19) RNA MUKUL+probe Ql (Unsp spec) Not detected [facility] Comment on above: Result Comment: [...] management decisions. Fact sheet for Healthcare Providers: https://www.fda.gov/media/616500/download Fact sheet for Patients: https://www.fda.gov/media/238527/download Methodology: Isothermal Nucleic Acid Amplification Performed By: #### C OVRB #### [facility] [address] [place] [address] Earring Maker: Good Melendez MD Nicotineon 05-11-2021 [id number]-IL-[id number] <2 Normal [facility] Comment on above: Performed By: #### C BC, PT, PTT, BMP #### [facility] [address] [place] [address] Earring Maker: Good Melendez MD #### ANICOT #### [facility] [address] [place] [address] Earring Maker: Troy Link MD Cotinine <2 Normal [facility] Comment on above: Performed By: #### C BC, PT, PTT, BMP #### [facility] [address] [place] [address] [phone] Earring Maker: Good Melendez MD #### ANICOT #### [address] [address] Earring Maker: Troy Link MD Nicotine <2 Normal [facility] Comment on above: Result Comment: (NOT [...] developed and its performance characteristics determined by [facility]. It has not been cleared or approved by the US Food and Drug Administration. This test was performed in a CLIA certified laboratory and is intended for clinical purposes. Performed By: [facility] [address] [place] [address] On Site Coordinator: Ayse Diaz MD Performed By: #### C BC, PT, PTT, BMP #### [facility] [address] [place] [address] Earring Maker: Good Melendez MD #### ANICOT #### [facility] [employer] [address] [place] [address] Earring Maker: Troy Link MD Nicotine, Bloodon 05-11-2021 4-[id number] <2 ng/[facility] Cot[facility] <2 ng/mL [facility] Nicotine <2 ng/mL [facility] Comment on above: (NOTE) Consistent with [...] developed and its performance characteristics determined by [facility]. It has not been cleared or approved by the US Food and Drug Administration. This test was performed in a CLIA certified laboratory and is intended for clinical purposes. Performed By: [facility] [address] [place] [address] On Site Coordinator: Ayse Diaz MD [facility] EKG 12 LeadOrdered By: Unkno wn Result on 05-09-2021 Atrial Rate 122 BPM judo P Lyons 55 degrees judo P-R Interval 164 ms judo Q-T Interval 298 ms judo QRS Duration 84 ms judo QTc Calculation (Bazett) 424 ms judo R Lyons -11 degrees [facility] T Lyons 42 degrees [facility] Ventricular Rate 122 BPM [facility] alth [facility] EKG 12 Leadon 05-09-2021 Sinus tachycardia Otherwise normal ECG No previous ECGs available [facility] STV MUSE Result, Unknown Provider - 05/09/2021 Sinus tachycardia Otherwise normal ECG No previous ECGs available [employer] Work Phone: XR CHEST (2 VW)on 05-09-2021 [...] Singh Calero MD 05/09/21 Final result Normal [facility] No acute airspace disease identified. [facility]: TWO XRAY VIEWS OF THE CHEST [...] acute osseous abnormality is identified. [facility] Singh Blakely MD - 05/09/2021 EXAMINATION: TWO XRAY VIEWS [...] identified. IMPRESSION: No acute airspace disease identified. [employer] Phone: XR CHEST (2 VW)Ordered By: Carlos Calero on 05-09-2021 [employer] Phone: APTTon 05-08-2021 aPTT Coag (Bld) [Time] 23.1 s Normal 20.5-30.5 [facility] Comment on above: Result Comment: IV Heparin Therapy Range: 48.6-77.8 Performed By: #### C BC, PT, PTT, BMP #### [facility] [address] [place], [place] [phone] Earring Maker: Good Melendez MD #### ANICOT #### [facility] [address] [place] [address] Earring Maker: Troy Link MD aPTT Coag (Bld) [Time] 23.1 s [facility] Comment on above: IV Heparin Therapy Range: 48.6-77.8 Basic Metabolic Panelon - Anion gap [Moles/Vol] 15 mmol/L 9 - 17 mmol/L [facility] Calcium [Mass/Vol] 9.4 mg/dL 8.6 - 10. 4 mg/dL [facility] Chloride [Moles/Vol] 103 mmol/L 98 - 10 7 mmol/L [facility] CO2 [Moles/Vol] 19 mmol/L Low 20 - 31 mmol/L [facility] Creatinine [Mass/Vol] 1.59 mg/dL High 0.70 - 1.20 mg/dL [facility] GFR 55 mL/min Low >60 [facility] GFR Non- 45 mL/min Low >60 [facility] GFR/1.73 sq M.predicted MDRD (S/P/Bld) [Vol rate/Area] [facility] Comment on above: Average GFR for 50-5 9 years old: 93 mL/min/1.73sq m Chronic Kidney Disease: <60 mL/min/1.73sq m Kidney failure: <15 mL/min/1.73sq m eGFR calculated using average adult body mass. Additional eGFR calculator available at: http://www.Yunno/multiple_crcl_2012.htm Glucose [Mass/Vol] 141 mg/dL High 70 - 99 mg/dL [facility] Interpretation and review of laboratory results Abnormal [facility] Potassium [Moles/Vol] 5.3 mmol/L 3.7 - 5.3 mmol/L [facility] Sodium [Moles/Vol] 137 mmol/L 135 - 144 mmol/L [facility] Urea nitrogen (BldV) [Mass/Vol] 37 mg/dL High 6 - 20 mg/dL [facility] Basic Metabolic Profon 05-08 (cont.) Normal [facility] Comment on above: Result Comment: Aver age GFR for 50-59 years old: 93 mL/min/1.73sq m Chronic Kidney Disease: <60 mL/min/1.73sq m Kidney failure: <15 mL/min/1.73sq m eGFR calculated using average adult body mass. Additional eGFR calculator available at: http://www.CannaBuild.com/multiple_crcl_2012.htm Performed By: #### C BC, PT, PTT, BMP #### [address] [address] Earring Maker: Good Melendez MD #### ANICOT #### [address] [phone] Earring Maker: Troy Link MD Anion gap [Moles/Vol] 15 mmol/L Normal 9-17 [facility] Comment on above: Performed By: #### C BC, PT, PTT, BMP #### [address] [address] Earring Maker: Good Melendez MD #### ANICOT #### [address] [phone] Earring Maker: Troy Link MD Calcium [Mass/Vol] 9.4 mg/dL Normal 8.6-10.4 [facility] Comment on above: Performed By: #### C BC, PT, PTT, BMP #### [address] [address] Earring Maker: Good Melendez MD #### ANICOT #### [address] [phone] Earring Maker: Troy Link MD Chloride [Moles/Vol] 103 mmol/L Normal 98-107 [facility] Comment on above: Performed By: #### C BC, PT, PTT, BMP #### [address] [address] Earring Maker: Good Melendez MD #### ANICOT #### [facility] [address] [place] [phone] Earring Maker: Troy Link MD CO2 [Moles/Vol] 19 mmol/L Low 20-31 [facility] Comment on above: Performed By: #### C BC, PT, PTT, BMP #### [address] [address] Earring Maker: Good Melendez MD #### ANICOT #### [facility] [address] [place], [place] [phone] Earring Maker: Troy Link MD Creatinine [Mass/Vol] 1.59 mg/dL High 0.70-1.20 [facility] Comment on above: Performed By: #### C BC, PT, PTT, BMP #### [address] [phone] Earring Maker: Good Melendez MD #### ANICOT #### [facility] [address] [place], [place] [phone] Earring Maker: Troy Link MD GFR, Amer 55 mL/min Low >60 [facility] Comment on above: Performed By: #### C BC, PT, PTT, BMP #### [address] [address] Earring Maker: Good Melendez MD #### ANICOT #### [facility] [address] [place], [place] [phone] Earring Maker: Troy Link MD GFR,non Amer 45 mL/min Low >60 [facility] Comment on above: Performed By: #### C BC, PT, PTT, BMP #### [address] [address] Earring Maker: Good Melendez MD #### ANICOT #### [facility] [address] [place], [place] [phone] Earring Maker: Troy Link MD Glucose [Mass/Vol] 141 mg/dL High 70-99 [facility] Comment on above: Performed By: #### C BC, PT, PTT, BMP #### [address] [address] Earring Maker: Good Melendez MD #### ANICOT #### [facility] [address] [place] [address] Earring Maker: Troy Link MD Potassium [Moles/Vol] 5.3 mmol/L Normal 3.7-5.3 [facility] Comment on above: Performed By: #### C BC, PT, PTT, BMP #### [address] [phone] Earring Maker: Good Melendez MD #### ANICOT #### [facility] [address] [place] [phone] Earring Maker: Troy Link MD Sodium [Moles/Vol] 137 mmol/L Normal 135-144 [facility] Comment on above: Performed By: #### C BC, PT, PTT, BMP #### [address] [address] Earring Maker: Good Melendez MD #### ANICOT #### [facility] [address] [place], [place] [phone] Earring Maker: Troy Link MD Urea nitrogen [Mass/Vol] 37 mg/dL High 6-20 [facility] Comment on above: Performed By: #### C BC, PT, PTT, BMP #### [address] [address] Earring Maker: Good Melendez MD #### ANICOT #### [facility] [address] [place], [place] [phone] Earring Maker: Troy Link MD CBCon 05-08-2021 Erythrocyte distribution width (RBC) [Ratio] 14.1 % Normal 11.8-14.4 [facility] Comment on above: Performed By: #### C BC, PT, PTT, BMP #### [address] [address] Earring Maker: Good Melendez MD #### ANICOT #### [facility] [address] [place] [address] Earring Maker: Troy Link MD Hematocrit (Bld) [Volume fraction] 43.6 % Normal 40.7-50.3 [facility] Comment on above: Performed By: #### C BC, PT, PTT, BMP #### [address] [address] Earring Maker: Good Melendez MD #### ANICOT #### [address] [phone] Earring Maker: Troy Link MD Hemoglobin (Bld) [Mass/Vol] 13.5 g/dL Normal 13.0-17.0 [facility] Comment on above: Performed By: #### C BC, PT, PTT, BMP #### [address] [phone] Earring Maker: Good Melendez MD #### ANICOT #### [facility] [address] [place] [phone] Earring Maker: Troy Link MD MCH (RBC) [Entitic mass] 29.4 pg Normal 25.2-33.5 [facility] Comment on above: Performed By: #### C BC, PT, PTT, BMP #### [address] [phone] Earring Maker: Good Melendez MD #### ANICOT #### [facility] [address] [place], [place] [phone] Earring Maker: Troy Link MD MCHC (RBC) [Mass/Vol] 31.0 g/dL Normal 28.4-34.8 [facility] Comment on above: Performed By: #### C BC, PT, PTT, BMP #### [address] [phone] Earring Maker: Good Melendez MD #### ANICOT #### [facility] [address] [place], [place] [phone] Earring Maker: Troy Link MD MCV (RBC) [Entitic vol] 95.0 fL Normal 82.6-102.9 [facility] Comment on above: Performed By: #### C BC, PT, PTT, BMP #### [address] [phone] Earring Maker: Good Melendez MD #### ANICOT #### [address] [address] Earring Maker: Troy Link MD NRBC Automated 0.0 per 100 WBC Normal 0.0 [facility] Comment on above: Performed By: #### C BC, PT, PTT, BMP #### [address] [phone] Earring Maker: Good Melendez MD #### ANICOT #### [facility] [address] [place] [address] Earring Maker: Troy Link MD Platelet mean volume (Bld) [Entitic vol] 8.7 fL Normal 8.1-13.5 [facility] Comment on above: Performed By: #### C BC, PT, PTT, BMP #### [address] [phone] Earring Maker: Good Melendez MD #### ANICOT #### [facility] [address] [place], [place] [phone] Earring Maker: Troy Link MD Platelets (Bld) [#/Vol] 279 10*3/uL Normal 138-453 [facility] Comment on above: Performed By: #### C BC, PT, PTT, BMP #### [facility] [address] [place] [address] Earring Maker: Good Melendez MD #### ANICOT #### [facility] [address] [place] [address] Earring Maker: Troy Link MD RBC (Bld) [#/Vol] 4.59 10*6/uL Normal 4.21-5.77 [facility] Comment on above: Performed By: #### C BC, PT, PTT, BMP #### [address] [address] Earring Maker: Good Melendez MD #### ANICOT #### [facility] [address] [place] [address] Earring Maker: Troy Link MD WBC (Bld) [#/Vol] 8.9 10*3/uL Normal 3.5-11.3 [facility] Comment on above: Performed By: #### C BC, PT, PTT, BMP #### [address] [address] Earring Maker: Good Melendez MD #### ANICOT #### [facility] [address] [place] [address] Earring Maker: Troy Link MD Hematocrit (Bld) [Volume fraction] 43.6 % 40.7 - 50.3 % [facility] Hemoglobin.gastroint estinal spec 1 Ql (Stl) 13.5 g/dL 13.0 - 17.0 g/dL [facility] MCH (RBC) [Entitic mass] 29.4 pg 25.2 - 33.5 pg [facility] MCHC (RBC) [Mass/Vol] 31.0 g/dL 28.4 - 34.8 g/dL [facility] MCV (RBC) [Entitic vol] 95.0 fL 82.6 - 102.9 fL [facility] NRBC Automated 0.0 0.0 per 100 WBC [facility] Platelet distribution width (Bld) [Ratio] 14.1 % 11.8 - 14.4 % [facility] Platelet mean volume (Bld) [Entitic vol] 8.7 fL 8.1 - 13.5 fL [facility] Platelets (Bld) [#/Vol] 279 10*3/uL [facility] RBC (Bld) [#/Vol] 4.59 10*6/uL 4.21 - 5.7 7 m/uL [facility] WBC (Bld) [#/Vol] 8.9 10*3/uL [facility] No Panel Informationon 05-08 [facility] PTon 05-08-2021 INR Coag (PPP) [Relative time] 1.1 {INR} Normal [facility] Comment on above: Result Comment: Therapeutic Range: Moderate Anticoagulant Intensity: INR = 2.0-3.0 High Anticoagulant Intensity: INR = 2.5-3.5 Performed By: #### C BC, PT, PTT, BMP #### [facility] [place], [place] [phone] Earring Maker: Good Melendez MD #### JIMENA #### [facility] [address] [place] [address] Earring Maker: Troy Link MD PT Coag (PPP) [Time] 11.2 s Normal 9.1-12.3 [facility] Comment on above: Performed By: #### C BC, PT, PTT, BMP #### [facility] [place], [place] [phone] Earring Maker: Good Melendez MD #### YASSINET #### [facility] [address] [place] [address] Earring Maker: Troy Link MD Protime-INRon 05-08-2021 INR Coag (Bld) [Relative time] 1.1 {INR} [facility] Comment on above: Therapeutic Range: Moderate Anticoagulant Intensity: INR = 2.0-3.0 High Anticoagulant Intensity: INR = 2.5-3.5 PT Coag (PPP) [Time] 11.2 s [employer] XR CHEST (2 VW)on 05-08-2021 Radiology Study observation (narrative) judo Work Phone: CT LUMBAR SPINE W CONTRASTon 02-28-2021 CT LUMBAR SPINE W CONTRAST [facility] Department of Radiology [address] [place] [phone] ======== Patient Name: SUKHDEEP SIMENTAL : 1965 Sex: M Age: Race: White Pt. Location: Patient Status: D Ordered Date: 02/13/2021 9:35:00 AM Completed Date: 02/28/2021 02:00 PM Requesting Provider: JASON MILLER Attending Provider: JASON MILLER Report Copy To: Signs & Symptoms: Z98.1 Arthrodesis status I10 History: [place] Comments: Exam: CT LUMBAR SPINE W CONTRAST [...] above Electronically signed: Petar Mg. Transcribed by: [email or web address], User Resident: Electronically Signed by: PETAR MG @ 03/01/2021 02:21 PM [place] [facility] LUMBAR MYELOGRAMon 01-04-202 2 LUMBAR MYELOGRAM [facility] Department of Radiology [address] [place] [address] ======== Patient Name: SUKHDEEP SIMENTAL : 1965 Sex: M Age: Race: White Pt. Location: Patient Status: O Ordered Date: 02/13/2021 9:35:00 AM Completed Date: 02/28/2021 02:06 PM Requesting Provider: JASON MILLER Attending Provider: JASON MILLER Report Copy To: Signs & Symptoms: Z98.1 Arthrodesis status I10 History: [phone] Is patient on thinners? Eliquis hold 48hrs. 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 Consent was obtained. Timeout: [place] protocol timeout verification performed. PROCEDURE: Estimated blood [...] report. Electronically signed: Petar Mg. Transcribed by: [email or web address], User Resident: OCHOA HONG Electronically Signed by: PETAR MG @ 02/28/2021 03:13 PM I personally read this/these film(s) with this resident Normal [facility] LUMBAR SPINE 4 OR 5 [facility] LUMBAR SPINE 4 OR 5 [facility] Department of Radiology [address] [place] [phone] ======== Patient Name: SUKHDEEP SIMENTAL : 1965 Sex: M Age: Race: White Pt. Location: 84 Patient Status: D Ordered Date: 02/01/2021 1:05:00 [...] Osteopenia. Electronically signed: Ahsan Farmer. Transcribed by: [email or web address], User Resident: Electronically Signed by: AHSAN FARMER @ 02/02/2021 10:14 AM Normal [facility] Comment on above: Order Comment: Views (X-RAY, LUMBAR SPINE): AP, Lateral, L5-S1 Spot, Flexion, Extension C REACTIVE PROTEINon 021 CRP [Mass/Vol] 9.6 mg/L High 0.0-7.0 [facility] Comment on above: Performed By: #### 6 1405 #### [facility] [address] CBC W/DIFFon 12-15-2020 ABS IMM GRANS 0.1 10*3/uL Normal 0.0-0.2 The [facility] Comment on above: Performed By: #### 5 6505, [address] #### [facility] [address] [place] [address], [facility] ABS NEUTROPHILS 6.1 10*3/uL Normal 1.6-7.6 The [facility] Comment on above: Performed By: #### 5 6505, [address] #### [facility] [address] [place] [address], [facility] Basophils (Bld) [#/Vol] 0.1 10*3/uL Normal 0.0-0.2 [facility] Comment on above: Performed By: #### 5 6505, [address] #### [facility] [address] [place] [address], [facility] Basophils/100 WBC (Bld) 0.8 % Normal 0.0-1.0 [facility] Comment on above: Performed By: #### 5 6505, 1955[address] #### [facility] [address] [facility] [address], [facility] Eosinophils (Bld) [#/Vol] 0.4 10*3/uL Normal 0.0-0.5 The [facility] Comment on above: Performed By: #### 5 6505, [address] #### [facility] [address] [facility] [address], [facility] Eosinophils/100 WBC (Bld) 4.1 % Normal 0.0-6.0 The [facility] Comment on above: Performed By: #### 5 6505, [address] #### [facility] [address] [facility] [address], [facility] Erythrocyte distribution width (RBC) [Ratio] 12.6 % Normal 11.5-15.0 [facility] Comment on above: Performed By: #### 5 6505, [address] #### [facility] [address] [place] [address], [facility] Hematocrit (Bld) [Volume fraction] 40.2 % Normal 39.0-50.0 [facility] Comment on above: Performed By: #### 5 6505, [address] #### [facility] [address] [place] [address], [facility] Hemoglobin (Bld) [Mass/Vol] 12.6 g/dL Low 13.0-17.0 The [facility] Comment on above: Performed By: #### 5 6505, [address] #### [facility] [address] [facility] [place] [address], [facility] IMMATURE GRANS 0.7 % Normal 0.0-1.0 The [facility] Comment on above: Performed By: #### 5 6505, [address] #### [facility] [address] [facility]. [address] Lymphocytes (Bld) [#/Vol] 2.0 10*3/uL Normal 1.2-4.0 [facility] [facility] [place] Comment on above: Performed By: #### 5 [id number], [id number] #### [facility] [address] [facility] [place] [address], [facility] Lymphocytes/100 WBC (Bld) 20.6 % Normal 20.0-45.0 The [facility] [place] Comment on above: Performed By: #### 5 [id number], [id number] #### [facility] [address] [facility] [place] [address], [facility] MCH (RBC) [Entitic mass] 30.0 pg Normal 27.0-33.0 The [facility] [place] Comment on above: Performed By: #### 5 [id number], [id number] #### [facility] [address] [place] [address], [facility] MCHC (RBC) [Mass/Vol] 31.3 g/dL Low 32.0-35.0 [facility] [place] Comment on above: Performed By: #### 5 [id number], [id number] #### [facility] [address] [place] [address], [facility] MCV (RBC) [Entitic vol] 95.7 fL Normal 82.0-98.0 The [facility] [place] Comment on above: Performed By: #### 5 [id number], [id number] #### [facility] [address] [place] [address], [facility] Monocytes (Bld) [#/Vol] 1.2 10*3/uL High 0.1-1.0 The [facility] [place] Comment on above: Performed By: #### 5 [id number], [id number] #### [facility] [address] [place] [address], [facility] MONOS 11.9 % Normal 5.0-12.0 The [facility] [place] Comment on above: Performed By: #### 5 [id number], [id number] #### [facility] [address] [facility] [address], [facility] Neutrophils/100 WBC (Bld) 61.9 % Normal 40.0-72.0 The [facility] [place] Comment on above: Performed By: #### 5 [id number], [id number] #### [facility] [address] [place] [address], [facility] Nucleated RBC/100 WBC (Bld) [Ratio] 0 % Normal 0-0 [facility] [place] Comment on above: Performed By: #### 5 6505, [id number] #### [facility] [address] [place] [address], [facility] PLAT CNT 335 10*3/uL Normal 150-400 The [facility] Comment on above: Performed By: #### 5 6505, 91375 #### [facility] [address] [place] [id number], [facility] RBC (Bld) [#/Vol] 4.20 10*6/uL Normal 4.20-5.70 [facility] Comment on above: Performed By: #### 5 6506, 07342 #### [facility] [address] [facility]. [address] WBC (Bld) [#/Vol] 9.86 10*3/uL Normal 4.00-10.60 [facility] Comment on above: Performed By: #### 5 6506, 48459 #### [facility] [address] [facility] [place], [place] [id number] [place] [address] KNEE RIGHT 4 VWSon KNEE RIGHT 4 S [facility] [place] Department of Radiology [address] [place] [address] ======== Patient Name: SUKHDEEP SIMENTAL : 1965 Sex: M Age: Race: White Pt. Location: OUTP Patient Status: D Ordered Date: 12/15/2020 12:25:00 PM Completed Date: 12/15/2020 12:35 PM Requesting Provider: ROBBI PEPE Attending Provider: ROBBI PEPE Report Copy To: Signs & Symptoms: L03.115 cellulitis of rt lower limb History: Comments: evaluate Exam: KNEE RIGHT 4 VWS ======== KNEE RIGHT 4 VWS 12/15/2020 12:35 PM CLINICAL INDICATIONS: L03.115 cellulitis [...] report. Electronically signed: Layo Jimenes. Transcribed by: [email or web address], User Resident: LAYO CORDERO Electronically Signed by: LAYO JIMENES @ 12/16/2020 09:18 AM I personally read this/these film(s) with this resident Normal [facility] [place] Comment on above: Order Comment: evalu ate SEDIMENTATION RATEon 021 SED RATE 77 mm/hr High 0-10 [facility] [place] Comment on above: Performed By: #### 5 [id number], [id number] #### [facility] [address] COVID-19 Positive/Negativeon 05-05-2020 COVID-19 Positive/Negative Negative Negative [facility] Comment on above: Reference: NegativeT esting for SARS-CoV-2 by RT-PCRThis test was developed and its performance characteristics determined by [employer] ([employer]) and validated at the [facility]. This test has not been FDA [...] among non-blacks MDRD (S/P/Bld) [Vol rate/Area] mL/min/{1.73_m2} [facility] Otheron 05-05-2020 GFR/1.73 sq M.predicted MDRD (S/P/Bld) [Vol rate/Area] mL/min/{1.73_m2} [facility] Comment on above: GFR estimated refere nce range: According to KDOQI guidelines, <60 ml/min/1.73m2 is sufficient to diagnose a patient with chronic kidney disease. Pharmacy Creatinine Clearance (Chem N/A [facility] Coronavirus 2019 PCR Interp N/A [facility] Serum or plasma calcium yeni urement (mass/volume)on 05-05-2020 Calcium [Mass/Vol] 8.6 mg/dL 8.2-10.2 [facility] Serum or plasma chloride xi surement (moles/volume)on 05-05-2020 Chloride [Moles/Vol] 104 mmol/L 95-114 [facility] Serum or plasma creatinine m easurement with calculation of estimated glomerular filtron 05-05-2020 Creatinine [Mass/Vol] 1.14 mg/dL 0.64-1.27 [facility] Serum or plasma glucose yeni urement (mass/volume)on 05-05-2020 Glucose [Mass/Vol] 178 mg/dL 70-100 [facility] Comment on above: ADA recommended refe rence rangeRandom Glucose Reference Range is dependent on time and content of last meal. Glucose of more than 200 mg/dL in a nonstressed, ambulatory subject supports the diagnosis of Diabetes Mellitus. Serum or plasma potassium me asurement (moles/volume)on 05-05-2020 Potassium [Moles/Vol] 4.0 mmol/L 3.5-5.1 [facility] Serum or plasma sodium measu rement (moles/volume)on 05-05-2020 Sodium [Moles/Vol] 141 mmol/L 136-146 [facility] Serum or plasma total carbon dioxide measurement (moles/volume)on 05-05-2020 CO2 [Moles/Vol] 27.4 mmol/L 22.0-30.0 [facility] Serum or plasma urea nitroge n measurement (mass/volume)on 05-05-2020 Urea nitrogen [Mass/Vol] 18 mg/dL 9-23 [facility] .eGFRon 06-10-2019 eGFR AA >60 Normal >=60 [facility] Comment on above: Result Comment: Resu lt = 0-14.9 mL/min/1.73 m2 Kidney failure or Dialysis Result = 15-29 mL/min/1.73 m2 Severe decrease in GFR Result = 30-59 mL/min/1.73 m2 Moderate decrease in GFR Result >= 60 mL/min/1.73 m2 Normal or increased GFR Performed By: #### E GFR #### [address] [address] eGFR Non-AA >60 Normal >=60 [facility] Comment on above: Result Comment: Resu [...] dosing. Performed By: #### E GFR #### [address] [address] Basic Metabolic Profileon Anion gap [Moles/Vol] 15 mmol/L Normal 7-17 [facility] Comment on above: Performed By: #### C [id number] #### [address] [address] Calcium [Mass/Vol] 9.8 mg/dL Normal 8.5-10.3 [facility] Comment on above: Performed By: #### C [id number] #### [address] [address] Chloride [Moles/Vol] 103 mmol/L Normal 98-110 [facility] Comment on above: Performed By: #### C [id number] #### [address] [address] CO2 [Moles/Vol] 27 mmol/L Normal 22-32 [facility] Comment on above: Performed By: #### C [id number] #### [address] [address] Creatinine [Mass/Vol] 0.98 mg/dL Normal 0.61-1.24 [facility] Comment on above: Performed By: #### C [id number] #### [address] [address] Glucose [Mass/Vol] 198 mg/dL High 70-99 [facility] Comment on above: Performed By: #### C [id number] #### [address] [address] Potassium [Moles/Vol] 4.0 mmol/L Normal 3.4-4.8 [facility] Comment on above: Performed By: #### C [id number] #### [address] [address] Sodium [Moles/Vol] 141 mmol/L Normal 133-142 [facility] Comment on above: Performed By: #### C [id number] #### [address] [address] Urea nitrogen [Mass/Vol] 18 mg/dL Normal 8-26 [facility] Comment on above: Performed By: #### C [id number] #### [address] [address] Urea nitrogen/Creatinine [Mass ratio] 18.4 mg/mg Normal 10.0-20.0 [facility] Comment on above: Performed By: #### C [id number] #### [address] [address] CBCon 06-10-2019 Erythrocyte distribution width (RBC) [Ratio] 13.0 % Normal 11.6-14.8 [facility] Comment on above: Performed By: #### C BCI #### [address] [address] Hematocrit (Bld) [Volume fraction] 46.2 % Normal 41.0-53.0 [facility] Comment on above: Performed By: #### C BCI #### [address] [address] Hemoglobin (Bld) [Mass/Vol] 16.2 g/dL Normal 13.5-17.5 [facility] Comment on above: Performed By: #### C BCI #### [address] [address] MCH (RBC) [Entitic mass] 32.1 pg Normal 27.0-35.0 [facility] Comment on above: Performed By: #### C BCI #### [address] [address] MCHC (RBC) [Mass/Vol] 35.0 % Normal 31.0-37.0 [facility] Comment on above: Performed By: #### C BCI #### [address] [address] MCV (RBC) [Entitic vol] 91.6 fL Normal 80.0-100.0 [facility] Comment on above: Performed By: #### C BCI #### [address] [address] Platelet mean volume (Bld) [Entitic vol] 7.5 fL Normal 6.7-10.6 [facility] Comment on above: Performed By: #### C BCI #### [address] [address] Platelets (Bld) [#/Vol] 263 x10*3/mcL Normal 150-350 [facility] Comment on above: Performed By: #### C BCI #### [address] [address] RBC (Bld) [#/Vol] 5.04 x10*6/mcL Normal 4.30-5.80 [facility] Comment on above: Performed By: #### C BCI #### [address] [address] WBC (Bld) [#/Vol] 9.7 x10*3/mcL Normal 4.5-11.0 [facility] Comment on above: Performed By: #### C BCI #### [address] [address] Hgb A1con 06-10-2019 HbA1c (Bld) [Mass fraction] 134 mg/dL High 68-114 [facility] Comment on above: Result Comment: Math ematical Calc approx. The mean gluc equivalency of A1c Performed By: #### H BA1C #### [address] [address] HbA1c (Bld) [Mass fraction] 6.3 % A1c High 4.0-5.6 [facility] Comment on above: Result Comment: Refe rence Range: 4.0 - 5.6 % Normal 5.7 - 6.4 % Pre-Diabetes > 6.5 % Diabetes Performed By: #### H BA1C #### [address] [address] MRSA, PCRon 06-10-2019 INR Coag (Bld) [Relative time] Negative Normal [facility] Comment on above: Result Comment: The CepScayl Xpert MRSA Assay is a qualitative in [...] clinician. Performed By: #### M RSAPC #### [address] [address] PTon 06-10-2019 INR Coag (PPP) [Relative time] 1.0 {INR} Normal <=3.5 [facility] Comment on above: Result Comment: INR has no normal range. INR Therapeutic range is: 2.0-3.0 (AF, CVA, TIAs, DVT prophylaxis, acute DVT) 2.5-3.5 [facility], recurrent thrombosis/emboli) Performed By: #### P TINR #### [address] [address] PT Coag (PPP) [Time] 11.9 s Normal 8.9-11.9 [facility] Comment on above: Performed By: #### P TINR #### [address] [address] PTTon 06-10-2019 aPTT Coag (Bld) [Time] 23.0 s Normal 19.2-27.8 [facility] Comment on above: Performed By: #### P TT #### [address] [address] XR Chest 2 Viewson 0 XR Chest [...] Electronically Signed in Other Vendor System) Normal [facility] XR LUMBAR SPINE (2-3 VIEWS)o n [...] Juwan Kumar MD 04/16/19 Final result Normal [facility] Limited range of motion without evidence of instability. Multilevel disc degeneration. [facility] [place] EXAMINATION: 2 XRAY VIEWS OF THE LUMBAR [...] appear intact. [facility] [place] Josafat, [employer] Incoming Radiant Results From [employer] - 04/16/2019 11:16 AM EST EXAMINATION: 2 [...] disc degeneration. [facility] [place] CT LUMBAR SPINE WO CONTRASTo n 04-11-2019 [...] Ahsan Guidry MD 04/11/19 Final result Normal [facility] XR PELVIS (1-2 VIEWS)on 03-28 XR [...] Ahsan Guidry MD 04/11/19 Final result Normal [facility] No acute findings. [employer] Phone: EXAMINATION: ONE XRA Y VIEW OF THE PELVIS 04/11/2019 1:24 pm COMPARISON: None. HISTORY: ORDERING SYSTEM PROVIDED HISTORY: fall right buttock pain TECHNOLOGIST PROVIDED HISTORY: fall right buttock pain Reason for Exam: fall buttocks pain Acuity: Acute Type of Exam: Initial FINDINGS: No acute fracture. No widening of the sacroiliac joints. Degenerative changes within the lower lumbar spine. Mild bilateral hip osteoarthritis. [employer] Phone: Josafat, Mhpn Incoming Radiant Results From [employer] - 04/11/2019 2:02 PM EST EXAMINATION: ONE [...] bilateral hip osteoarthritis. IMPRESSION: No acute findings. [employer] Work Phone: Vital Signs Date Time Vital Sign Value Performing Clinician Facility 02-13-2024 11:22-0500 Body mass index (BMI) [Ratio] 38.99 kg/m2 Ahsan Flynn PA Work Phone: [facility] 02-13-2024 11:22-0500 Body weight 119.75 kg Ahsan Flynn PA Work Phone: [facility] 02-13-2024 11:22-0500 Diastolic blood pressure 100 mm[Hg] Ahsan Flynn PA Work Phone: [facility] 02-13-2024 11:22-0500 Heart rate 92 /min Ahsan Flynn PA Work Phone: [facility] 02-13-2024 11:22-0500 Respiratory rate 18 /min Ahsan Flynn PA Work Phone: [facility] 02-13-2024 11:22-0500 Systolic blood pressure 150 mm[Hg] Ahsan Flynn PA Work Phone: [facility] [employer] [facility] 12-05-2023 10:05-0400 Body height 175.3 cm Ahsan Flynn PA Work Phone: [facility] [employer] [facility] 12-05-2023 10:05-0400 Body mass index (BMI) [Ratio] 39.28 kg/m2 Ahsan Flynn PA Work Phone: [facility] [employer] [facility] 12-05-2023 10:05-0400 Body weight 120.66 kg Ahsan Flynn PA Work Phone: [facility] [employer] [facility] 12-05-2023 10:05-0400 Diastolic blood pressure 90 mm[Hg] Ahsan NOVAK Work Phone: [facility] 12-05-2023 10:05-0400 Heart rate 91 /min Ahsan NOVAK Work Phone: [facility] 12-05-2023 10:05-0400 Respiratory rate 16 /min Ahsan NOVAK Work Phone: [facility] 12-05-2023 10:05-0400 SaO2% (BldA) [Mass fraction] 95 % Ahsan NOVAK Work Phone: [facility] 12-05-2023 10:05-0400 Systolic blood pressure 131 mm[Hg] Ahsan NOVAK Work Phone: [facility] 11-07-2023 11:09-0400 Body height 175.26 cm [facility] 11-07-2023 11:09-0400 Body mass index (BMI) [Ratio] 39 kg/m2 [facility] 11-07-2023 11:09-0400 Body temperature 97.4 [degF] [facility] 11-07-2023 11:09-0400 Body weight 119.86 kg [facility] 11-07-2023 11:09-0400 Diastolic blood pressure 85 mm[Hg] [facility] 11-07-2023 11:09-0400 Heart rate 88 /min [facility] 11-07-2023 11:09-0400 Respiratory rate 18 /min [facility] 11-07-2023 11:09-0400 SaO2% (BldA) [Mass fraction] 98 % [facility] 11-07-2023 11:09-0400 Systolic blood pressure 123 mm[Hg] [facility] 08-15-2023 11:27-0400 Diastolic blood pressure 84 mm[Hg] Ahsan NOVAK Work Phone: [facility] 08-15-2023 11:27-0400 Heart rate 110 /min Ahsan NOVAK Work Phone: [facility] 08-15-2023 11:27-0400 Respiratory rate 20 /min [facility] 08-15-2023 11:27-0400 Systolic blood pressure 126 mm[Hg] Ahsan Nienberg PA Work Phone: [facility] [employer] [facility] 02-14-2023 11:12-0500 Body height 175.3 cm Ahsan Nienberg PA Work Phone: [facility] 02-14-2023 11:12-0500 Body mass index (BMI) [Ratio] 39.43 kg/m2 Ahsan Nienberg PA Work Phone: [facility] [employer] [facility] 02-14-2023 11:12-0500 Body weight 121.11 kg Ahsan Nienberg PA Work Phone: [facility] [employer] [facility] 02-14-2023 11:12-0500 Diastolic blood pressure 94 mm[Hg] Ahsan Nienberg PA Work Phone: [facility] [employer] [facility] 02-14-2023 11:12-0500 Heart rate 89 /min Ahsan [facility]ienberg PA [facility] 02-14-2023 11:12-0500 Respiratory rate 18 /min Ahsan Nienberg PA Work Phone: [facility] [employer] 02-14-2023 11:12-0500 SaO2% (BldA) [Mass fraction] 98 % Ahsan Nienberg PA Work Phone: [facility] [employer] [facility] 02-14-2023 11:12-0500 Systolic blood pressure 143 mm[Hg] Ahsan Nienberg PA Work Phone: [facility] 02-07-2023 14:37-0500 Body temperature 98.6 [degF] Riddhi Goss [employer]ANT [employer] LANGUAGE PATHOLOGIST PRN Work Phone: [facility] 02-07-2023 14:37-0500 Body weight 122.92 kg Riddhi Goss [employer] LANGUAGE PATHOLOGIST PRN Work Phone: [facility] 02-07-2023 14:37-0500 Diastolic blood pressure 80 mm[Hg] Riddhi Goss [employer]AUR[employer] LANGUAGE PATHOLOGIST PRN Work Phone: [facility] 02-07-2023 14:37-0500 Heart rate 79 /min Riddhi Goss [employer] LANGUAGE PATHOLOGIST PRN Work Phone: [facility] 02-07-2023 14:37-0500 SaO2% (BldA) [Mass fraction] 98 % Riddhibrayan Goss [employer]AUR[employer]ECH LANGUAGE PATHOLOGIST PRN Work Phone: [facility] 02-07-2023 14:37-0500 Systolic blood pressure 157 mm[Hg] Riddhi Goss RESTAURANT [employer]ECH LANGUAGE PATHOLOGIST PRN Work Phone: [facility] 02-04-2023 09:16-0500 Blood Pressure Location Cecelia MURILLO [facility] 02-04-2023 09:16-0500 Diastolic blood pressure 88 mm[Hg] Cecelia MURILLO [facility] 02-04-2023 09:16-0500 Heart rate 79 /min Cecelia MURILLO [facility] 02-04-2023 09:16-0500 Respiratory rate 16 /min Cecelia MURILLO [facility] 02-04-2023 09:16-0500 Systolic blood pressure 139 mm[Hg] Cecelia MURILLO [facility] 12-20-2022 14:26-0400 Body height 175.3 cm Singh Morgan PA-C Work Phone: [facility] 12-20-2022 14:26-0400 Body weight 123.11 kg Singh Morgan PA-C Work Phone: [facility] 12-20-2022 14:26-0400 Diastolic blood pressure 84 mm[Hg] Singh Morgan PA-C Work Phone: [facility] 12-20-2022 14:26-0400 Heart rate 76 /min Singh NOVAK-C Work Phone: [facility] 12-20-2022 14:26-0400 SaO2% (BldA) [Mass fraction] 97 % Singh NOVAK-C Work Phone: [facility] 12-20-2022 14:26-0400 Systolic blood pressure 165 mm[Hg] Singh NOVAK-C Work Phone: [facility] 12-06-2022 15:00-0400 Body height 175.26 cm Oumou Reji Other [employer] Other 12-06-2022 15:00-0400 Body mass index (BMI) [Ratio] 39.9 kg/m2 Oumou Reji Other [employer] Other 12-06-2022 15:00-0400 Body temperature 98.1 [degF] Oumou Reji Other [employer] Other 12-06-2022 15:00-0400 Body weight 122.56 kg Oumou Reji Other [employer] Other 12-06-2022 15:00-0400 Diastolic blood pressure 81 mm[Hg] Oumou Reji Other [employer] Other 12-06-2022 15:00-0400 Respiratory rate 20 /min Oumou Reji Other [employer] Other 12-06-2022 15:00-0400 SaO2% (BldA) [Mass fraction] 97 % Oumou Reji Other [employer] Other 12-06-2022 15:00-0400 Systolic blood pressure 127 mm[Hg] Oumou Weinstein Other [facility] [employer] Other 11-05-2022 14:17-0400 Body height 175.3 cm Thomas Mathew MD Work Phone: [facility] 11-05-2022 14:17-0400 Body weight 123.97 kg Thomas Mathew MD Work Phone: [facility] 11-05-2022 14:17-0400 Diastolic blood pressure 84 mm[Hg] Thomas Mathew MD Work Phone: [facility] 11-05-2022 14:17-0400 Heart rate 66 /min Thomas Mathew MD Work Phone: [facility] 11-05-2022 14:17-0400 SaO2% (BldA) [Mass fraction] 100 % Thomas Mathew MD Work Phone: [facility] 11-05-2022 14:17-0400 Systolic blood pressure 156 mm[Hg] Thomas Mathew MD Work Phone: [facility] 10-17-2022 15:41-0400 Blood Pressure Location Maite SQUIRES [facility] [place] 10-17-2022 15:41-0400 Diastolic blood pressure 84 mm[Hg] Maite SQUIRES [facility] [place] 10-17-2022 15:41-0400 Heart rate 70 /min Maite SQUIRES [facility] [place] 10-17-2022 15:41-0400 Respiratory rate 16 /min Maite SQUIRES [facility] [place] 10-17-2022 15:41-0400 Systolic blood pressure 118 mm[Hg] Maite SQUIRES [facility] [place] 06-21-2022 10:20-0400 Body height 175.26 cm Oumou Reji Other [employer] Other 06-21-2022 10:20-0400 Body mass index (BMI) [Ratio] 40.02 kg/m2 Oumou Reji Other [employer] Other 06-21-2022 10:20-0400 Body temperature 97.6 [degF] Oumou Reji Other [employer] Other 06-21-2022 10:20-0400 Body weight 122.93 kg Oumou Reji Other [facility] Other 06-21-2022 10:20-0400 Diastolic blood pressure 80 mm[Hg] Oumou Reji Other [employer] Other 06-21-2022 10:20-0400 Respiratory rate 20 /min Oumou Reji Other [employer] Other 06-21-2022 10:20-0400 SaO2% (BldA) [Mass fraction] 97 % Oumou Reji Other [employer] Other 06-21-2022 10:20-0400 Systolic blood pressure 114 mm[Hg] Oumou Reji Other [employer] Other 03-19-2022 09:48-0500 Blood Pressure Location Cecelia MURILLO [facility] 03-19-2022 09:48-0500 Diastolic blood pressure 88 mm[Hg] Cecelia MURILLO [facility] 03-19-2022 09:48-0500 Heart rate 78 /min Cecelia MURILLO [facility] 03-19-2022 09:48-0500 Respiratory rate 16 /min Cecelia MURILLO [facility] 03-19-2022 09:48-0500 Systolic blood pressure 139 mm[Hg] Cecelia MURILLO [facility] 01-11-2022 11:15-0500 Body temperature 98.1 [degF] PHYSICIAN NO [facility] 01-11-2022 11:15-0500 Diastolic blood pressure 88 mm[Hg] PHYSICIAN NO [facility] 01-11-2022 11:15-0500 Heart rate 79 /min PHYSICIAN NO [facility] 01-11-2022 11:15-0500 Respiratory rate 18 /min PHYSICIAN NO [facility] 01-11-2022 11:15-0500 SaO2% (BldA) [Mass fraction] 96 % PHYSICIAN NO [facility] 01-11-2022 11:15-0500 Systolic blood pressure 137 mm[Hg] PHYSICIAN NO [facility] 12-15-2021 12:20-0400 Body height 175.26 cm Estephanie Lowry Other [employer] [facility] [employer] Other 12-15-2021 12:20-0400 Body mass index (BMI) [Ratio] 41.49 kg/m2 Estephanie Lowry Other [facility] Other 12-15-2021 12:20-0400 Body temperature 98.6 [degF] Estephanie Lowry [facility] Other 12-15-2021 12:20-0400 Body weight 127.46 kg Estephanie Lowry Other [facility] Other 12-15-2021 12:20-0400 Diastolic blood pressure 96 mm[Hg] Estephanie Lowry Other [facility] Other 12-15-2021 12:20-0400 Respiratory rate 18 /min Estephanie Lowry Other [facility] Other 12-15-2021 12:20-0400 SaO2% (BldA) [Mass fraction] 97 % Estephanie Lowry Other [facility] Other 12-15-2021 12:20-0400 Systolic blood pressure 132 mm[Hg] Estephanie Lowry Other [facility] Other 10-25-2021 14:00-0400 Body height 175.26 cm Oumou Reji Other [facility] Other 10-25-2021 14:00-0400 Body mass index (BMI) [Ratio] 42.02 kg/m2 Oumou Reji Other [facility] Other 10-25-2021 14:00-0400 Body temperature 96.8 [degF] Oumou Reji Other [facility] Other 10-25-2021 14:00-0400 Body weight 129.09 kg Oumou Reji Other [facility] Other 10-25-2021 14:00-0400 Diastolic blood pressure 69 mm[Hg] Oumou Reji Other [facility] Other 10-25-2021 14:00-0400 Respiratory rate 20 /min Oumou Reji Other [facility] Other 10-25-2021 14:00-0400 SaO2% (BldA) [Mass fraction] 98 % Oumou Reji Other [facility] Other 10-25-2021 14:00-0400 Systolic blood pressure 109 mm[Hg] Oumou Reji Other [facility] Other 05-26-2021 10:45-0400 Body temperature 98.8 [degF] Octavio Mcclellan [employer] Work Phone: [employer] 05-26-2021 10:45-0400 Respiratory rate 18 /min Octavio Mcclellan [employer] Work Phone: [facility] 05-26-2021 10:45-0400 SaO2% (BldA) [Mass fraction] 98 % Octavio Mcclellan [employer] Work Phone: [facility] 05-26-2021 07:30-0400 Heart rate 105 /min Octavio Mcclellan [employer] Work Phone: [facility] 05-25-2021 23:20-0400 Diastolic blood pressure 85 mm[Hg] Octavio Mcclellan [employer] Work Phone: [facility] 05-25-2021 23:20-0400 Systolic blood pressure 130 mm[Hg] Octavio Mcclellan [employer] Work Phone: [facility] 05-24-2021 10:15-0400 Body height 175.3 cm Octavio Mcclellan [employer] Work Phone: jud[facility] 05-24-2021 10:15-0400 Body mass index (BMI) [Ratio] 50.65 kg/m2 Octavio Mcclellan [employer] Work Phone: [facility] 05-24-2021 10:15-0400 Body weight 155.58 kg Octavio Mcclellan [employer] Work Phone: jud[facility] 05-08-2021 11:04-0400 Body height 175.3 cm St[facility] [employer] 05-08-2021 11:04-0400 Body mass index (BMI) [Ratio] 51.98 kg/m2 [address] 05-08-2021 11:04-0400 Body temperature 97.3 [degF] [address] 05-08-2021 11:04-0400 Body weight 159.[address] 05-08-2021 11:04-0400 Diastolic blood pressure 83 mm[Hg] [address] 05-08-2021 11:04-0400 Heart rate 126 /min [address] 05-08-2021 11:04-0400 Respiratory rate 20 /min [address] [employer] 05-08-2021 11:04-0400 SaO2% (BldA) [Mass fraction] 95 % [address] 05-08-2021 11:04-0400 Systolic blood pressure 121 mm[Hg] [address] 01-08-2020 14:04-0500 BMI (Body Mass Index) 47.99 kg/m2 [facility] 01-08-2020 14:04-0500 Body Temperature 96.69 [degF] [facility] 01-08-2020 14:04-0500 Body weight 147.42 kg [facility] 01-08-2020 14:04-0500 Height 175.3 cm [facility] 04-11-2019 12:42-0500 BMI (Body Mass Index) 44.3 kg/m2 [employer] Work Phone: 04-11-2019 12:42-0500 Body Temperature 97.39 [degF] [employer] Work Phone: 04-11-2019 12:42-0500 Body weight 136.08 kg [employer] Work Phone: 04-11-2019 12:42-0500 BP Diastolic 98 mm[Hg] [employer] Phone: 04-11-2019 12:42-0500 BP Systolic 196 mm[Hg] [facility] [employer] Phone: 04-11-2019 12:42-0500 Height 175.3 cm [facility] [employer] Phone: 04-11-2019 12:42-0500 Pulse (Heart Rate) 72 /min [facility]anne [employer] Phone: 04-11-2019 12:42-0500 Pulse Oximetry 96 % [employer] Phone: 04-11-2019 12:42-0500 Respiratory Rate 16 /min [employer] Phone: Encounters Encounter Date Encounter Type Care Provider Facility Start: 11-19-2024 ambulatory Yarely X Dread Facilit y:[facility] Start: 11-19-2024 End: 11-19-2024 Patient encounter procedure Yarely [place] [facility] [employer] Start: 11-13-2024 End: 11-13-2024 ambulatory Cecelia Fernandez Facility:[id number] Start: 08-07-2024 End: 08-07-2024 ambulatory Cecelia MURILLO Facility:[facility] [place] Start: 08-07-2024 End: 08-07-2024 Patient encounter procedure Cecelia MURILLO [facility] Start: 06-22-2024 End: 06-22-2024 ambulatory Cecelia MURILLO Facility:[facility] [place] Start: 06-17-2024 End: 06-17-2024 ambulatory [facility] Start: 05-18-2024 ambulatory [facility] Start: 05-18-2024 End: 05-18-2024 ambulatory [facility] Start: 04-10-2024 End: 04-21-2024 Telephone encounter Cherelle Oleary RN [facility] Start: 03-03-2024 End: 03-04-2024 Telephone encounter Cherelle Oleary RN [facility] Start: 02-13-2024 End: 02-13-2024 ambulatory AHSAN FLYNN [facility] Start: 02-13-2024 End: 02-13-2024 Office outpatient visit 15 minutes Ahsan Flynn PA Work Phone: [facility] Comment on above: Spinal stenosis, lum bar region, with neurogenic claudication (Primary Dx) Start: 02-03-2024 End: 02-03-2024 ambulatory Cecelia MURILLO Facility:[facility] Start: 02-03-2024 End: 02-03-2024 Patient encounter procedure Cecelia MURILLO [facility] Start: 12-05-2023 End: 12-05[facility]: 12-05-2023 End: 12-05-2023 Office outpatient visit 15 minutes Ahsan Flynn PA Work Phone: [facility] Comment on above: Spinal stenosis, lum bar region, with neurogenic claudication (Primary Dx) Start: 11-07-2023 End: 11-07-2023 ambulatory [facility] Work Phone: Start: 11-07-2023 End: 11-07-2023 Patient encounter procedure [facility] Work Phone: Start: 10-29-2023 Non-patient / Non-visit [facility] Work Phone: Start: 10-07-2023 End: 06-25-2024 Telephone encounter Thomas Mathew MD Work Phone: Neurology Comment on above: Appointment Start: 10-04-2023 Telephone encounter Thomas crabtree MD Work Phone: Neurology Comment on above: Results Start: 08-15-2023 End: 08-15-2023 Office outpatient visit 15 minutes Ahsan NOVAK Work Phone: [facility] Comment on above: Spinal stenosis, lum bar region, with neurogenic claudication (Primary Dx) Start: 08-15-2023 End: 08-15-2023 ambulatory AHSAN FLYNN [facility] Start: 07-30-2023 Telephone encounter Thomas crabtree MD Work Phone: Neurology Comment on above: Appointment; Orders Start: 07-23-2023 Telephone encounter Thomas crabtree MD Work Phone: Neurology Start: 05-08-2023 End: 05-08-2023 ambulatory Thomas Mathew MD Work Phone: Neurosurgery Comment on above: Radiculopathy, lumba r region (Primary Dx) Start: 05-08-2023 End: 05-08-2023 Telemedicine consultation with patient Thomas Mathew MD Work Phone: [facility] Start: 05-08-2023 Telephone encounter Cherelle Oleary RN [facility] Start: 05-07-2023 Telephone encounter Cherelle Oleary RN [facility] Start: 04-16-2023 Telephone encounter Thomas crabtree MD Work Phone: Neurology Comment on above: Imaging Disc Start: 04-10-2023 Telephone encounter Thomas crabtree MD Work Phone: Neurology Comment on above: PT Certification Start: 04-09-2023 Telephone encounter Thomas crabtree MD Work Phone: Neurology Start: 02-14-2023 End: 02-14-2023 Office outpatient visit 15 minutes Ahsan NOVAK Work Phone: [facility] Comment on above: Spinal stenosis, lum bar region, with neurogenic claudication (Primary Dx) Start: 02-07-2023 End: 02-07-2023 Patient encounter procedure Riddhi Goss [employer] PATHOLOGIST [employer] Work Phone: Neurosurgery Comment on above: 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) Start: 02-07-2023 Telephone encounter Thomas crabtree MD Work Phone: Neurosurgery Start: 02-04-2023 End: 02-04-2023 Patient encounter procedure Cecelia Parviz MURILLO [facility] Start: 01-23-2023 Telephone encounter Thomas crabtree MD Work Phone: Neurology Comment on above: Received [facility] Start: 12-21-2022 Telephone encounter Thomas crabtree MD [...] Evaluation and management of inpatient THOMAS MATHEW Facility:[facility] Start: 12-06-2022 End: 12-06-2022 ambulatory Oumou Reji Other [facility] Other Start: 12-06-2022 Office outpatient vi sit 25 minutes Oumou Reji [facility] Start: 11-21-2022 End: 11-21-2022 ambulatory MAITE GALLOWAY Facility:[facility] Start: 11-21-2022 End: 11-21-2022 ambulatory BLAYNE ISABEL Facility:[facility] Start: 11-21-2022 End: 11-21-2022 ambulatory BLAYNE ISABEL Facility:[facility] Start: 11-21-2022 Encounter for other preprocedural examination BLAYNE ISABEL [facility] Start: 11-05-2022 End: 11-05-2022 Patient encounter procedure Thomas Mathew MD Work Phone: Neurosurgery Comment on above: 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 Facility:[facility] Start: 06-21-2022 End: 06-21-2022 ambulatory Oumou Reji Other [facility] Other Start: 06-21-2022 Office outpatient vi sit 25 minutes Oumou Reji [facility] Start: 06-11-2022 End: 06-12-2022 ambulatory OUMOU REJI Facility: Start: 04-03-2022 End: 04-03-2022 ambulatory Oumou Reji Other [facility] Other Start: 04-03-2022 Telephone encounter Oumou Reji [facility] Start: 03-20-2022 Encounter for preprocedural laboratory examination DR DOCTOR MILES [facility] Start: 03-19-2022 End: 03-19-2022 Patient encounter procedure Cecelia MURILLO [facility] Start: 03-15-2022 End: 03-16-[address] DOCTOR MILES Facility:[facility] Start: 03-15-2022 End: 03-16-2022 Encounter for preprocedural laboratory examination DR DOCTOR MILES Facility:[facility] Start: 03-12-2022 End: 03-13-[address] CECELIA MURILLO . Facility:[facility] Start: 03-08-2022 End: 03-09-[address] DOCTOR MILES Facility:[facility] Start: 01-27-2022 Encounter for genera l adult medical examination without abnormal findings DR BLAYNE ISABEL . [facility] Start: 01-24-2022 End: 01-25-[address] BLAYNE ISABEL . Facility:[facility] Start: 01-24-2022 End: 01-25-2022 Encounter for general adult medical examination without abnormal findings DR BLAYNE ISABEL . Facility:[facility] Start: 01-22-2022 End: 01-22-2022 ambulatory Oumou Reji Other [employer] [facility] [employer] Other Start: 01-22-2022 Telephone encounter Oumou Reji [facility] Start: 01-11-2022 End: 01-11-2022 ambulatory PHYSICIAN NO FAMILY Facility:[facility] Start: 01-11-2022 End: 01-11-2022 ambulatory PHYSICIAN NO [facility] Work Phone: Start: 01-11-2022 End: 01-11-2022 Discharged Recurring PHYSICIAN NO [facility] - O/P Start: 01-10-2022 End: 01-10-2022 ambulatory Oumou Reji Other [facility] Other Start: 01-10-2022 Telephone encounter Oumou Reji [facility] Start: 01-02-2022 End: 01-02-2022 ambulatory Oumou Reji Other [facility] Other Start: 01-02-2022 Telephone encounter Oumou Reji [facility] Start: 01-01-2022 End: 01-01-2022 ambulatory Oumou Reji Other [facility] Other Start: 01-01-2022 Telephone encounter Oumou Reji [facility] Start: 12-21-2021 End: 12-22-[address] BLAYNE ISABEL . 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 Facility:[facility] Start: 10-31-2021 End: 11-01-[address] BLAYNE ISABEL . Facility:[facility] Start: 10-25-2021 End: 10-25-2021 ambulatory Oumou Reji Other [facility] [employer] Other Start: 10-25-2021 Office outpatient ne w 45 minutes Oumou Weinstein [facility] Start: 10-18-2021 End: 10-19-[address] BLAYNE ISABEL . Facility:[facility] Start: 10-17-2021 Encounter for other specified special examinations DR DOCTOR MILES [facility] Start: 10-17-2021 Encounter for preprocedural laboratory examination DR DOCTOR MILES [facility] Start: 10-16-2021 End: 10-17-[address] [...] Evaluation and management of inpatient LEISA PERRY [facility] Start: 05-24-2021 End: 05-26-2021 ambulatory OCTAVIO MCCLELLAN [facility] Start: 05-24-2021 End: 05-26-2021 Subsequent hospital visit by physician Octavio Mcclellan DO Work Phone: [facility] 2C Ortho/Med Surg Comment on above: S/P laparoscopic sle may gastrectomy (Primary Dx) Start: 05-08-2021 End: 05-08-2021 Subsequent hospital visit by physician Twyla Mccracken Rm 2 [facility] Pre-Admit Testing Comment on above: Canceled (Other) Start: 05-08-2021 End: 05-11-2021 ambulatory OCTAVIO Jj [facility] Start: 05-08-2021 End: 05-13-2021 ambulatory OCTAVIO Jj [facility] Start: 05-08-2021 End: 05-10-2021 Patient encounter status Stv Xr [facility] Radiology Start: 05-08-2021 End: 05-10-2021 Subsequent hospital visit by physician Glory Mccracken Xr [facility] Radiology Comment on above: Pre-op chest exam Start: 05-08-2021 End: 05-12-2021 Subsequent hospital visit by physician Twyla Mccracken 2 [facility] Pre-Admit Testing Start: 05-05-2020 End: 05-05-2020 Patient encounter procedure Blayne Isabel -Pre-Surgical Testing Start: 02-04-2020 End: 02-04-2020 Subsequent hospital visit by physician Suzanne Pruett Work Phone: [facility] Echocardiography Comment on above: Arrived Start: 01-08-2020 End: 01-08-2020 Subsequent hospital visit by physician Alexandro Muhammad Work Phone: [facility] Radiology Start: 01-08-2020 End: 01-08-2020 Office outpatient new 30 minutes Alexandro Muhammad Work Phone: [facility] Orthopedics Comment on above: Fluid retention in l egs (Primary Dx) Start: 06-10-2019 End: 06-11-2019 Patient encounter procedure [facility] Facility:[facility] Start: 04-16-2019 End: 04-19-2019 Patient encounter procedure ARSENIO Leyva [facility] Start: 04-16-2019 End: 04-18-2019 Subsequent hospital visit by physician Xr Room 4 [facility] Comment on above: Injury Start: 04-11-2019 End: 04-11-2019 Emergency department patient visit SUZANNE DAVIES [facility] Start: 04-11-2019 End: 04-11-2019 Emergency department patient visit Suzanne Davies Work Phone: [facility] ED Comment on above: Acute bilateral low back pain with right-sided sciatica (Primary Dx); Traumatic buttock pain Procedures Date Procedure Procedure Detail Performing Clinician Start: 11-13-2024 Cystoscopy Yarely ortega Start: 11-21-2022 Antibody screen BLAYNE HOY Comment on above: Order Comment: Speci men Type: BLOOD SPECIMENOrdering Facility: [facility] Address: [address] [place] [address] Performed By: #### T [id number] ####CC MAIN BLOOD BANKCLIA [id number] [address] [place] Start: 02-25-2022 Arthroplasty of knee Scarlet MURILLO Start: 02-25-2022 Lumbar spinal fusion Scarlet MURILLO Start: 01-24-[address] SHERRI MURILLO . Comment on above: Performed By: #### P TT #### [facility] [address] [place] [address] Dr. Hugh Landis Start: 07-13-2021 Cystoscopic removal [...] Work Phone: Start: 05-08-2021 Assay of nicotine Evertania Mcclellan DO Work Phone: Start: 05-08-2021 Basic metabolic pane l calcium total Octavio Mcclellan DO Work Phone: Start: 05-08-2021 Ecg routine ecg w/le ast 12 lds trcg only w/o i&r Octavio Mcclellan DO Work Phone: Start: 04-25-2021 Gastric sleeve Maite NILL Start: 04-25-2021 Procedure on stomach Pa trick [...] Reyes Work Phone: Start: 12-18-2017 Colonoscopy Maite BETANCUR Start: 05-25-2016 cysto rt retrograde rt ureteroscopy rt holmium laser lithotripsy rt j stent with string Cecelialitzy MURILLO Ankle joint operations Daly MURILLO Bilateral replacemen t of knee joints Cecelialitzy MURILLO Chondrectomy of semi lunar cartilage of knee Maite SQUIRES Cystoscopy Cecelialitzy MURILLO Lumbar spinal fusion Cecelialitzy MURILLO Urine culture PHYSICIAN TOM BUSBY Plan of Treatment Date Care Activity Detail Author Start: 01-24-2027 Prostate Cancer Screening Discussion Prostate Cancer Screening Discussion [facility] Start: 01-24-2027 Prostate specific antigen measurement Prostate Cancer Screening Discussion [facility] Start: 08-13-2025 ambulatory Ambulatory Facility: [facility] Start: 02-12-2025 Adult BMI Screening Adult BMI Screening [facility] Start: 02-12-2025 Tobacco Screening Tobacco Screening [facility] Start: 12-04-2024 Adult BMI Screening Adult BMI Screening [facility] Start: 12-04-2024 Tobacco Screening Tobacco Screening [facility] Start: 10-26-2024 Influenza vaccination Influenza Vaccine (Season Ended) [facility] Start: 08-14-2024 Tobacco Screening Tobacco Screening [facility] Start: 02-15-2024 Adult BMI Screening Adult BMI Screening [facility] Start: 02-15-2024 Tobacco Screening Tobacco Screening [facility] Start: 02-13-2024 End: 02-13-2024 Patient encounter procedure 02/13/2024 10:45 AM EST Office Visit [facility] [address] [place] [address] Ahsan Flynn PA [address] [place], [place] [id number] [facility] Start: 12-12-2023 Creatinine measurement Serum Creatinine [facility] Start: 12-12-2023 Serum Creatinine Serum Creatinine [facility] Start: 10-27-2023 Covid-19 Vaccine ( season) Covid-19 Vaccine ( season) [facility] Start: 10-27-2023 Influenza vaccination [facility] Start: 10-07-2023 End: 10-07-2023 Follow-up encounter Neurosurgery Comment on above: FOLLOW UP Start: 2023 RSV Vaccine (1 - 1-dose 60+ series) RSV Vaccine (1 - 1-dose 60+ series) [facility] Start: 2023 RSV Vaccine (1 - Risk 60-74 years 1-dose series) RSV Vaccine (1 - Risk 60-74 years 1-dose series) [facility] Start: 08-15-2023 End: 08-15-2023 Patient encounter procedure 08/15/2023 11:15 AM EDT Office Visit [facility] [address] [place] [id number] Ahsan Flynn PA [address] [place], [place] [id number] [facility] Start: 05-22-2023 Hemoglobin A1c measurement HbA1C [facility] Start: 05-22-2023 Hemoglobin A1c/Hemoglobin.total in Blood HbA1C [facility] Start: 02-25-2023 Behavioral Health Screening Behavioral Health Screening [facility] Start: 02-25-2023 Depression Assessment Depression Assessment [facility] Start: 01-20-2023 End: 01-19-2024 Radex spine lumbosacral 2/3 views XR LUMBAR LIMITED 2V AP/LAT Radiology Routine Lumbar adjacent segment disease with spondylolisthesis Expected: 01/20/2023, Expires: 01/19/[address] [facility] Work Phone: Comment on above: Expected: 01/20/2023, Expires: Start: 10-26-2022 Covid-19 Vaccine ( season) Covid-19 Vaccine () [facility] Start: 10-26-2022 Influenza vaccination [facility] Start: 05-25-2022 Creatinine measurement Creatinine monitoring [facility] Start: 05-25-2022 Potassium monitoring Potassium monitoring [facility] Start: 05-08-2022 Creatinine measurement Creatinine monitoring [facility] Start: 05-08-2022 Potassium monitoring Potassium monitoring [facility] Start: 02-25-2022 DEPRESSION ASSESSMENT DEPRESSION ASSESSMENT [facility] Start: 01-03-2022 Hemoglobin A1c measurement A1C test (Diabetic or Prediabetic) [facility] Start: 01-03-2022 Lipid panel Lipid screen [facility] Start: 10-26-2021 Influenza vaccination Flu vaccine (Season Ended) [facility] Start: 06-06-2021 End: 06-06-2021 Patient encounter procedure 06/06/2021 Office Visit Oncology Spencer Guy MD [address] [place] [address] [facility] Start: 06-02-2021 End: 06-02-2021 Patient encounter procedure 06/02/2021 Office Visit Bariatrics Octavio Mcclellan, DO [address] [phone] [facility] Invasive Bariatric Surg Start: 05-24-2021 End: 05-24-2021 Admission to [facility] day surgery center [facility] Comment on above: XI ROBOTIC LAPOROSCOPIC GASTRECTOMY SLEE VE, LIVER BIOPSY, EGD- GI SCHEDULED XI ROBOTIC LAPOROSCO PIC GASTRECTOMY SLEEVE, LIVER BIOPSY, EGD- GI SCHEDULED, POSSIBLE OPEN Start: 05-24-2021 End: 05-24-2021 Laps gstrc rstrictiv px longitudinal gastrectomy [facility] Start: 05-24-2021 Subsequent hospital visit by physician 05/24/2021 Hospital Encounter IP Unit Octavio Mcclellan DO [address] [facility] [place] [phone] [facility] OR Start: 05-19-2021 End: 05-19-2021 Patient encounter procedure 05/19/2021 Appointment Pre-Admission Testing [facility] PRE ADMIT Start: 05-18-2021 End: 05-18-2021 Patient encounter procedure 05/18/2021 Office Visit Bariatrics Octavio Mcclellan DO [address] [facility] [address] [place] [phone] [facility] Invasive Bariatric Surg Start: 10-26-2020 Influenza vaccination Flu vaccine (#1) [facility] Start: 04-04-2020 End: 04-04-2020 Office Visit 04/04/2020 Office Visit Cardiovascular Medicine Suzanne Pruett MD [address] [place] [address] [phone] [facility] Cardiology Start: 02-02-2020 End: 02-02-2020 Office Visit 02/02/2020 Office Visit Cardiovascular Medicine Suzanne Pruett MD [address] [place] [address] [phone] [facility] Start: 10-27-2019 Influenza vaccination INFLUENZA VACCINE (#1) [facility] stem Start: 10-26-2018 Influenza vaccination Flu vaccine (#1) [employer] Phone: Start: 09-10-2018 PROSTATE CANCER SCREENING DISCUSSION PROSTATE CANCER SCREENING DISCUSSION [facility] Start: 09-10-2013 Administration of varicella zoster vaccine Zoster (Shingles) Vaccine (1 of 2) [facility] Start: 09-10-2013 Colon cancer screen colonoscopy Colon cancer screen colonoscopy [facility] [employer] Phone: Start: 09-10-2013 Colonoscopy COLORECTAL CANCER SCREENING DISCUSSION [facility] Start: 09-10-2013 Prostate specific antigen measurement PROSTATE CANCER SCREENING DISCUSSION [facility] Start: 09-10-2013 Shingles Vaccine (1 of 2) Shingles Vaccine (1 of 2) [facility] Start: 09-10-2013 SHINGRIX VACCINE (1 of 2) SHINGRIX VACCINE (1 of 2) [facility] Start: 09-10-2013 Zoster vaccine hzv live for subcutaneous use ZOSTER (SHINGLES) VACCINE (1 of 2) [facility] Start: 09-10-2008 COLOGUARD (FIT-DNA) COLOGUARD (FIT-DNA) [facility] Start: 09-10-2008 Colonoscopy COLONOSCOPY [facility] Start: 09-10-2008 COLORECTAL CANCER SCREENING COLORECTAL CANCER SCREENING [facility] Start: 09-10-[address] COLONOGRAPHY [facility] Start: 09-10-2008 DIABETES SCREEN DIABETES SCREEN [facility] Start: 09-10-2008 Diabetes Screening Diabetes Screening [facility] Start: 09-10-2008 FECAL OCCULT BLOOD FECAL OCCULT BLOOD [facility] Start: 09-10-2008 Screening for malignant neoplasm of colon [facility] Start: 09-10-2008 SIGMOIDOSCOPY SIGMOIDOSCOPY [facility] Start: 2003 Diabetes screen Diabetes screen [facility] [employer] Phone: Start: 2003 Fasting lipid profile LIPID SCREENING [facility] Start: 2003 Lipid screen Lipid screen [facility] [employer] Phone: Start: 09-10-1998 Lipid 1996 panel - Serum or Plasma Lipid Screening [facility] Start: 09-10-1998 LIPID SCREEN LIPID SCREEN [facility] Start: 09-10-1982 DTaP,Tdap and Td Vaccines (1 - Tdap) DTaP,Tdap and Td Vaccines (1 - Tdap) [facility] Start: 09-10-1982 DTaP/Tdap/Td vaccine (1 - Tdap) DTaP/Tdap/Td vaccine (1 - Tdap) [facility] Start: 09-10-1982 Hepatitis B vaccine (1 of 3 - Risk 3-dose series) Hepatitis B vaccine (1 of 3 - Risk 3-dose series) [facility] Start: 09-10-1982 Pneumococcal Vaccine: 50+ (1 of 2 - PCV) Pneumococcal Vaccine: 50+ (1 of 2 - PCV) [facility] Start: 09-10-1982 Third diphtheria, tetanus and acellular pertussis (DTaP) vaccination TDAP (ADULT) [facility] Start: 09-10-1982 Urine microalbumin profile [facility] Start: 09-10-1981 Adult BMI Follow Up Plan Adult BMI Follow Up Plan [facility] Start: 09-10-1981 Annual PCP Team Chronic Disease Visit Annual PCP Team Chronic Disease Visit [facility] Start: 09-10-1981 BP Controlled (<130/80) BP Controlled (<130/80) [facility] Start: 09-10-1981 Depression Screening Depression Screening [facility] Start: 09-10-1981 Diabetic retinal exam Diabetic retinal exam [facility] Start: 09-10-1981 Hepatitis B surface antibody level LDL Cholesterol [facility] Start: 09-10-1981 HEPATITIS C SCREENING HEPATITIS C SCREENING [facility] Start: 09-10-1981 Hepatitis C screening Hepatitis C Screening [facility] Start: 09-10-1981 HIV SCREENING HIV SCREENING [facility] Start: 09-10-1981 HIV screening HIV Screening [facility] Start: 09-10-1981 Tetanus vaccination TETANUS [facility] Start: 09-10-1981 Urine screening for protein Diabetic microalbuminuria test [facility] Start: 09-10-1978 HIV screen HIV screen [facility] Work Phone: Start: 09-10-1978 HIV screening HIV screen [facility] Start: 09-10-1976 HIV screening HIV SCREENING DISCUSSION [facility] Start: 1975 Depression Screen Depression Screen [facility] Start: 1975 Depression Screening Depression Screening [facility] Start: 09-10-1974 DTaP/Tdap/Td vaccine (1 - Tdap) DTaP/Tdap/Td vaccine (1 - Tdap) [facility] [employer] Phone: Start: 09-10-1973 3 comp foot exam completed Diabetic Foot Exam [facility] Start: 09-10-1973 Diabetic foot examination Diabetic foot exam [facility] Start: 09-10-1973 Glaucoma screening Dilated Retinal Exam [facility] Start: 09-10-1973 Hepatitis B screening Urine Albumin:Creatinine Ratio [facility] Start: 09-10-1973 Hepatitis C antibody, confirmatory test Dilated Retinal Exam [facility] Start: 09-10-1969 Pneumococcal 0-64 years Vaccine (1 of 2 - PPSV23) Pneumococcal 0-64 years Vaccine (1 of 2 - PPSV23) [facility] Start: 09-10-1969 Pneumococcal vaccination [facility] Start: 09-10-1968 COVID-19 Vaccine (1) COVID-19 Vaccine (1) [facility] Start: 03-13-1964 COVID-19 VACCINE (#1) COVID-19 VACCINE (#1) [facility] Start: 1963 Hepatitis C antibody, confirmatory test HEPATITIS C VIRUS SCREENING [facility] Start: 1963 Hepatitis C screen Hepatitis C screen [facility] [employer] Phone: Start: 1963 Hepatitis C screening Hepatitis C screen [facility] Start: 1963 Potassium [Moles/Vol] POTASSIUM [facility] m Bacteria identified in Urine by Culture [facility] Chlamydia trachomati s DNA [Presence] in Unspecified specimen by MUKUL with probe detection [facility] [employer] Work Phone: Continuous pulse oximetry Pulse oximetry, continuous Respiratory Care Routine Every 4hr until discontinued starting 05/24/2021 [employer] Phone: Comment on above: Every 4hr until discontinued starting CT LUMBAR SPINE WO CONTRAST CT LUMBAR SPINE WO CONTRAST Imaging STAT 04/11/2019 1:43 PM EST [facility] Phone: Neisseria gonorrhoea e DNA [Presence] in Unspecified specimen by MUKUL with probe detection [facility] [employer] Work Phone: Oxygen therapy [[facility] Data Set] Initiate Oxygen Therapy Protocol Respiratory Care Routine As Needed until discontinued starting 05/24/2021 [employer] Phone: Comment on above: As Needed until discontinued starting Radiography for bone length studies XR BONE LENGTH STUDY Imaging Routine Hx of total knee arthroplasty, right 01/08/2020 1:37 PM [employer] Renal function 2000 panel - Serum or Plasma [facility] Spirometry panel Incentive silverio metry Respiratory Care Routine Every 2hr while awake until discontinued starting 05/24/2021 [facility] Work Phone: Comment on above: Every 2hr while awake until discontinued starting 05/24/2021 Surgical Pathology Surgical Path ology Lab Routine Release Upon Ordering for 1 Occurrences starting 05/24/2021 [facility] Work Phone: Comment on above: Release Upon Ordering for 1 Occurrences starting 05/24/2021 Trichomonas vaginali s DNA [Presence] in Unspecified specimen by MUKUL with probe detection [facility] Work Phone: X-ray of right knee XR KNEE RIGH T 3 VIEWS Imaging Routine Hx of total knee arthroplasty, right 01/08/2020 1:37 PM [employer] End: 06-06-2024 XR Lumbar spine AP and Lateral XR LUMBAR LIMITED 2V AP/LAT Radiology Routine Radiculopathy, lumbar region 1 Occurrences starting 05/08/2023 until 06/06/[address] [facility] Work Phone: Comment on above: 1 Occurrences starting 05/08/2023 until 06/06/2024 [facility] Immunizations Immunization Date Immunization Notes Care Provider Fa cility 05-08-2023 influenza virus vacc ine, unspecified formulation Thomas Mathew MD Work Phone: [facility] Payers Date Payer Category Payer Self-pay [id number] 2019 Private Health Insurance [id number] 2019 Worker's Compensation 2019 Government (not [facility] care or Medicaid) [facility] [id number] 2019 Unknown HEALTH MANAGEProxeon HEALTH [address] SOLUTIONS [facility] [id number] 2019-Present [phone] [place] [address] xxxxxxxx [id number]. 2.7.3.631542.315 2019 Unknown [id number] 2019 Unknown [id number] 2019 Unknown HEALTH MANAGEBunndle SOLUTIONS [facility] xxxxx 2019-Present [phone] [address] [facility] [address] [place] [address] xxxxx [id number]. 2.7.3.583738.315 2019 Unknown [id number]. 1.13.159. 2.7.3.000048.315 2019 Worker's Comp Other Managed Care [facility] [id number]. [id number] 2019 Unknown [id number] 2014 Private Health Insurance [id number] 2014 Private Health Insurance BRENTON PARIKH xxxxxxxxxx 2014-Present [phone] [facility] [address] [place] [address] xxxxxxxxxx 1.2.840.160190.1.13.239. 2.7.3.435202.315 2013 Private Health Insurance 1963 Unknown [id number] 2.16.840.1.963370.3.579. 2.176 1963 Unknown [id number] 2.16.840.1.169653.3.579. 2.176 1963 Unknown [id number] 2.16.840.1.775887.3.579. 2.176 1963 Unknown [id number] 2.16.840.1.384008.3.579. 2.196 1963 Unknown [id number] 2.16.840.1.127996.3.579. 2.175 1963 Unknown [id number] 2.16.840.1.851927.3.579. 2.647 1963 Unknown [id number] 2.16.840.1.691681.3.579. 2.593 1963 Unknown [id number] 2.16.840.1.420935.3.579. 2.593 1963 Unknown [id number] 2.16.840.1.653215.3.579. 2.593 1963 Unknown [id number] 2.16.840.1.453956.3.579. 2.593 1963 Unknown [id number] 2.16.840.1.020486.3.579. 2.593 1963 Unknown [id number] 2.16.840.1.645173.3.579. 259 1963 Unknown [id number] .16.840.1.595143.3.579. 259 1963 Unknown [id number] 2.16.840.1.649640.3.579. 259 1963 Unknown [id number] .840.1.508272.3.579. 2 1963 Unknown [id number] .840.1.628901.3.579. 2 1963 Unknown [id number] .840.1.675585.3.579. 2 1963 Unknown [id number] .840.1.590594.3.579. 2 1963 Unknown [id number] 840.1.619936.3.579. 2 1963 Unknown [id number] .840.1.949245.3.579. 2 1963 Unknown [id number] 840.1.729564.3.579. 2 1963 Unknown [id number] .840.1.941748.3.579. 2 1963 Unknown [id number] 840.1.555503.3.579. 2 1963 Unknown [id number] 840.1.308619.3.579. 2 1963 Unknown [id number] .840.1.334997.3.579. 2 1963 Unknown [id number] 840.1.507406.3.579. 2 1963 Unknown [id number] 840.1.762693.3.579. 2 1963 Unknown [id number] 2.16.840.1.963078.3.579. 2.593 1963 Unknown [id number] 2.16.840.1.788519.3.579. 2.593 1963 Unknown [id number] 2.16.840.1.906707.3.579. 2.1286 1963 Unknown [id number] 2.16.840.1.896061.3.579. 2.128 1963 Unknown [id number] 2.16.840.1.585959.3.579. 2.1285 1963 Unknown [id number] 2.16.840.1.224475.3.579. 2.727 1963 Unknown [id number] 2.16.840.1.554375.3.579. 2.727 1963 Unknown [id number] 2.16.840.1.694832.3.579. 2.727 1963 Unknown [id number] 2.16.840.1.696553.3.579. 2.727 1963 Unknown [id number] 2.16.840.1.254834.3.579. 2.727 1963 Unknown [id number] 2.16.840.1.988906.3.579. 2.727 1959 Unknown [id number] 1.2.840.831493.1.13.239. 2.7.3.213049.315 1959 Unknown [id number] Self-pay Self Pay Cosmeti c/Pain Mgmt [id number] Unknown [id number] 2.16.840.1.804313.3.579. 2.531 Unknown [id number] 2.16.840.1.092015.3.579. 2.531 Unknown [id number] 2.16.840.1.809554.19 Social History Date Type Detail Facility Start: 04-11-2019 End: 08-07-2024 Tobacco smoking status NHIS Never smoker [facility] Start: 04-11-2019 End: 05-25-2021 Alcohol intake Lifetime non-drinker (finding) [facility] Work Phone: Start: 04-11-2019 End: 01-08-2020 History SDOH Alcohol Frequency 1 [employer] Phone: Start: 1965 Sex Assigned At Not on file [employer] Work Phone: Start: 11-26-2013 End: 01-08-2020 Tobacco use and exposure Never used [employer] Start: 1965 Sex Assigned At Male [facility] Start: 04-08-2021 End: 05-24-2021 Exposure to SARS-CoV-2 (event) Not sure [facility] Work Phone: Start: 11-05-2022 End: 03-25-2023 Sex Assigned At [facility] Start: 01-26-2014 End: 03-25-2023 Alcohol intake Current non-drinker of alcohol (finding) [facility] Tobacco smoking status Never [facility] Start: 11-05-2022 End: 03-25-2023 [facility] Start: 12-05-2023 End: 02-13-2024 Alcoholic beverage intake [facility]-dr[facility] (finding[facility] Start: 06-08-2009 End: 09-30-2014 Sex Male (finding) [facility] Sexual Orientation [facility] Medical Equipment Procedure Code Equipment Code Equipment Origin al Text Equipment Identifier Dates CYSTOSCOPY W/ HO MIUM LASER JOSE G JACOBS, Octavio Myers 03/28/20 Unknown Abdomen {[id number] [id number] Start: 03-28-2020 Screw Darby 3 Alicia nium Set Merlyn Spine - [id number] Start: 12-07-2022 Screw Darby 3 Serr eladio 6.5mm 50mm Bone Polyaxial Nonsterile Spine - [id number] Start: 12-07-2022 Vitoss Ba2x Bioactive Bone Graft Substitute 5.0cub Cm [id number] Start: 12-07-2022 Cage Tritanium 6 d [id number] Spinal Sterile Latex Free Lumbar Posterior - [id number] Start: 12-07-2022 Cage Tritanium 6 d [id number] Spinal Sterile Latex Free Lumbar Posterior - [id number] Start: 12-07-2022 Screw Darby 3 Serr eladio 6.5mm 45mm Bone Polyaxial Nonsterile Spine - [id number] Start: 12-07-2022 Goals Date Patient Goal Desired Activity /State Functional Status Date Assessment Result Facility 02-04-2023 Functional Status N/A [facility] 12-11-2022 Are you deaf, or do you have serious difficulty hearing No 12/11/2022 12:52 PM EDT Livia Calix RN [facility] 12-11-2022 Are you blind, or do you have serious difficulty seeing, even when wearing glasses No 12/11/2022 12:52 PM Livia Atkinson RN [facility] 12-11-2022 Do you have serious difficulty walking or climbing stairs No 12/11/2022 12:52 PM EDT Livia Calix RN [facility] 12-11-2022 Do you have difficul ty dressing or bathing No 12/11/2022 12:52 PM EDLivia Chase RN [facility] 12-11-2022 Because of a physica l, mental, or emotional condition, do you have difficulty doing errands alone such as visiting a physician's office or shopping No 12/11/2022 12:52 PM Livia Atkinson RN No [facility] 10-17-2022 Functional Status N/A [facility] 03-19-2022 Functional Status N/A [facility] Mental Status Date Assessment Result Facility 12-11-2022 Because of a physica l, mental, or emotional condition, do you have serious difficulty concentrating, remembering, or making decisions No 12/11/2022 12:52 PM EDT Livia Calix RN No [facility] Clinical Notes 05-03-2021 to 11-19-2024 Telephone Encounter - Cherelle Oleary RN - 04/10/2024 2:13 PM ESTTelephone Encounter - Cherelle Oleary RN - 04/10/2024 2:13 PM SCARLET Enriquez - 02/13/2024 10:45 AM EST Note Date & Type Note Facility 11-19-2024 Hospital Discharge instructions Patient Education 11/19/2024 11:41:03 Kidney Stones, [id number] Kidney Stones Kidney stones are rock-like masses that form inside of the kidneys. Kidneys are organs that make pee (urine). A kidney stone may move into other parts of the urinary tract, including: The tubes that connect the kidneys to the bladder (ureters). The bladder. The tube that carries urine out of the body (urethra). Kidney stones can cause very bad pain and can block the flow of pee. The stone usually leaves your body through your pee. A doctor may need to take out the stone. What are the causes? Kidney stones may be caused by: Too much calcium in the body. This may be caused by too much parathyroid hormone in the blood. Uric acid crystals in the bladder. The body makes uric acid when you eat certain foods. Narrowing of one or both of the ureters. A kidney blockage that you were born with. Past surgery on the kidney or the ureters. What increases the risk? You are more likely to develop this condition if: You have had a kidney stone in the past. Other people in your family have had kidney stones. You do not drink enough water. You eat a diet that is high in protein, salt (sodium), or sugar. You are very overweight (obese). What are the signs or symptoms? Symptoms of a kidney stone may include: Pain in the side of the belly, right below the ribs. Pain usually spreads to the groin. Needing to pee often or right away. Pain when peeing. Blood in your pee. Feeling like you may vomit (nauseous). Vomiting. Fever and chills. How is this treated? Treatment depends on the size, location, and makeup of the kidney stones. The stones will often pass out of the body when you pee. You may need to: Drink more fluid to help pass the stone. ?In some cases, you may be given fluids through an IV tube at the hospital. Take medicine for pain. Change your diet to help keep kidney stones from coming back. Sometimes, you may need: A procedure to break up kidney stones using a beam of light (laser) or shock waves. Surgery to remove the kidney stones. Follow these instructions at home: Medicines Take hcdv-djg-kfjfwbe and prescription medicines only as told by your doctor. Ask your doctor if the medicine prescribed to you requires you to avoid driving or using machinery. Eating and drinking Drink enough fluid to keep your pee pale yellow. ?You may be told to drink at least 8 10 glasses of water each day. This will help you pass the stone. If told by your doctor, change your diet. You may be told to: ?Limit how much salt you eat. ?Eat more fruits and vegetables. ?Limit how much meat, poultry, fish, and eggs you eat. Follow instructions from your doctor about what you may eat and drink. General instructions Collect pee samples as told by your doctor. You may need to collect a pee sample: ?24 hours after a stone comes out. ?8 12 weeks after a stone comes out, and every 6 12 months after that. Strain your pee every time you pee. Use the strainer that your doctor recommends. Do not throw out the stone. Keep it so that it can be tested by your doctor. Keep all follow-up visits. You may need X-rays and ultrasounds to make sure the stone has come out. How is this prevented? To prevent another kidney stone: Drink enough fluid to keep your pee pale yellow. This is the best way to prevent kidney stones. Eat healthy foods. Avoid certain foods as told by your doctor. You may be told to eat less protein. Stay at a healthy weight. Where to find more information National Kidney Foundation (NKF): kidney.org Urology Care Foundation (UCF): urologyhealth.org Contact a doctor if: You have pain that gets worse or does not get better with medicine. Get help right away if: You have a fever or chills. You get very bad pain. You get new pain in your belly. You faint. You cannot pee. This information is not intended to replace advice given to you by your health care provider. Make sure you discuss any questions you have with your health care provider. Document Revised: 10/05/2022 Document Reviewed: 10/05/2022 [employer] Patient Education 2023 [employer]. Follow Up Care 11/16/2024 09:50:41 With:LIDIA JACOBS, Cecelia Jj, URL Address: [address] [place] [address]- When: Unknown Comments:as scheduled [facility]24 Note Patient Education Urology Kidney Stones Kidney stones are rock-like masses that form inside of the kidneys. Kidneys are organs that make pee (urine). A kidney stone may move into other parts of the urinary tract, including: ??? The tubes that connect the kidneys to the bladder (ureters). ??? The bladder. ??? The tube that carries urine out of the body (urethra). Kidney stones can cause very bad pain and can block the flow of pee. The stone usually leaves your body through your pee. A doctor may need to take out the stone. What are the causes? Kidney stones may be caused by: ??? Too much calcium in the body. This may be caused by too much parathyroid hormone in the blood. ??? Uric acid crystals in the bladder. The body makes uric acid when you eat certain foods. ??? Narrowing of one or both of the ureters. ??? A kidney blockage that you were born with. ??? Past surgery on the kidney or the ureters. What increases the risk? You are more likely to develop this condition if: ??? You have had a kidney stone in the past. ??? Other people in your family have had kidney stones. ??? You do not drink enough water. ??? You eat a diet that is high in protein, salt (sodium), or sugar. ??? You are very overweight (obese). What are the signs or symptoms? Symptoms of a kidney stone may include: ??? Pain in the side of the belly, right below the ribs. Pain usually spreads to the groin. ??? Needing to pee often or right away. ??? Pain when peeing. ??? Blood in your pee. ??? Feeling like you may vomit (nauseous). ??? Vomiting. ??? Fever and chills. How is this treated? Treatment depends on the size, location, and makeup of the kidney stones. The stones will often pass out of the body when you pee. You may need to: ??? Drink more fluid to help pass the stone. ? In some cases, you may be given fluids through an IV tube at the hospital. ??? Take medicine for pain. ??? Change your diet to help keep kidney stones from coming back. Sometimes, you may need: ??? A procedure to break up kidney stones using a beam of light (laser) or shock waves. ??? Surgery to remove the kidney stones. Follow these instructions at home: Medicines ??? Take xfep-[id number]-[id number] and prescription medicines only as told by your doctor. ??? Ask your doctor if the medicine prescribed to you requires you to avoid driving or using machinery. Eating and drinking ??? Drink enough fluid to keep your pee pale yellow. ? You may be told to drink at least 8?10 glasses of water each day. This will help you pass the stone. ??? If told by your doctor, change your diet. You may be told to: ? Limit how much salt you eat. ? Eat more fruits and vegetables. ? Limit how much meat, poultry, fish, and eggs you eat. ??? Follow instructions from your doctor about what you may eat and drink. General instructions ??? Collect pee samples as told by your doctor. You may need to collect a pee sample: ? 24 hours after a stone comes out. ? 8?12 weeks after a stone comes out, and every 6?12 months after that. ??? Strain your pee every time you pee. Use the strainer that your doctor recommends. ??? Do not throw out the stone. Keep it so that it can be tested by your doctor. ??? Keep all follow-up visits. You may need X-rays and ultrasounds to make sure the stone has come out. How is this prevented? To prevent another kidney stone: ??? Drink enough fluid to keep your pee pale yellow. This is the best way to prevent kidney stones. ??? Eat healthy foods. ??? Avoid certain foods as told by your doctor. You may be told to eat less protein. ??? Stay at a healthy weight. Where to find more information ??? National Kidney Foundation (NKF): kidney.org ??? Urology Care Foundation (UCF): urologyhealth.org Contact a doctor if: ??? You have pain that gets worse or does not get better with medicine. Get help right away if: ??? You have a fever or chills. ??? You get very bad pain. ??? You get new pain in your belly. ??? You faint. ??? You cannot pee. This information is not intended to replace advice given to you by your health care provider. Make sure you discuss any questions you have with your health care provider. Document Revised: 10/05/2022 Document Reviewed: 10/05/2022 [place] Patient Education ? 2023 [employer]. [facility] 08-07-2024 Hospital Discharge instructions Patient Education 08/07/2024 [...] include: ?8 oz (237 mL) of milk, cqbvawe-thhnxdvbwrzk-hkyvq milk, and calcium-fortifiedfruit juice. Calcium-fortified means that [...] ?Spinach (cooked), rhubarb, beets, sweet potatoes, and Austrian chard. ?Peanuts. ?Potato chips, bahraini fries, and baked potatoes with skin on. ?Nuts and nut products. ?Chocolate. If you regularly take a diuretic medicine, make sure to eat at least 1 or 2 servings of fruits or vegetables that are high in potassium each day. These include: ?Avocado. ?Banana. ?[place], prune, carrot, or tomato juice. ?Baked potato. [...] magnesium, fish oil, or vitamin B6. Take nlhd-bid-pedhrdk and prescription medicines only as told by [...] Casseroles. Pizza. Lasagna. Frozen meals. Potato chips. Singaporean fries. The items listed above may not [...] provider. Document Revised: 05/24/2022 Document Reviewed: 05/24/2022 [employer] Patient Education 2023 [employer]. Follow Up Care 07/03/2024 14:31:41 With:LIDIA JACOBS, Cecelia Jj, URL Address: [address] [place], [place] [id number]- When: Unknown [facility] 08-07-2024 Note Patient Education Nephrology Dietary [...] ? 8 oz (237 mL) of milk, hzgfpgu-ojxmtlqghcqi-armdo milk, and calcium-fortifiedfruit juice. Calcium-fortified means that [...] Spinach (cooked), rhubarb, beets, sweet potatoes, and Austrian chard. ? Peanuts. ? Potato chips, bahraini fries, and baked potatoes with skin on. ? Nuts and nut products. ? Chocolate. ??? If you regularly take a diuretic medicine, make sure to eat at least 1 or 2 servings of fruits or vegetables that are high in potassium each day. These include: ? Avocado. ? Banana. ? [place], prune, carrot, or tomato juice. ? Baked [...] fish oil, or vitamin B6. ??? Take bkyu-yvp-kjdsbar and prescription medicines only as told by your health (more content not included)... [facility] 06-17-2024 Note Orthopedic Surgery Subjective Chief [...] CT of the right knee completed at [facility] which we do not have access [...] hyperplasia) CKD (chronic kidney disease) 3 Diabetes ([facility]/HCC) GERD (gastroesophageal reflux disease) Hyperlipidemia Hyperparathyroidism Hypertension [...] CT of the right knee completed at [facility] which we do not have access [...] office visit notes can be submitted via [employer] Medical Records. [facility] Telephone encounter Note Patient brought in [...] office visit notes can be submitted via [facility] [employer] Medical Records. [facility] Miscellaneous Notes Patient called today to follow up on his request for a written statement stating that provider feels that patient is totally disabled. Patient is informed that this office does not write such letters, however, office notes can be faxed to his admitted attorneys's office if that would be beneficial. documented in this encounter [facility] 03-03-2024 Telephone encounter Note Patient called today to follow up on his request for a written statement stating that provider feels that patient is totally disabled. Patient is informed that this office does not write such letters, however, office notes can be faxed to his admitted attorneys's office if that would be beneficial. [facility] 02-13-2024 History of Present illness Narrative [facility] [address] [place] [address] Patient: Sukhdeep Simental Sex: male : 1965 Age: 58 y.o. PCP: BLAYNE ISABEL MD 02/13/2024 Sukhdeep Simental is here for a(n) follow up for his [facility] work injury. 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 Chief Complaint Patient presents with Back Pain [facility] HPI: 12/07/2022 L2/3 fusion and revised L3/4, S1 at [facility] per patient. Bilateral SI joint injection on 04/17/2021 with 10% relief, pain is worse. 07/07/21 Bilateral L3/4 Medial branch block with no relief. right L 3, 4 nerve root injection on 09/01/2021 with no relef. Back Pain This is a chronic problem. The current episode started more than 1 year ago (surgery 10/16/18 discectomy and 07/10/2019 fusion in [place]). The problem occurs constantly. The problem is [...] disorder Claustrophobia Diabetes mellitus type 2, controlled ([facility]) Fractures Hyperlipidemia Hypertension Joint pain Low back pain Major depression Obesity Osteoarthritis Pulmonary embolism ([facility]) Seasonal allergies Sleep apnea does not use machine Sleep apnea Visual impairment glasses Past Surgical History: Procedure Laterality Date ANKLE SURGERY spurs removed INJECTION BLOCK EPIDURAL CAUDAL STEROID N/A 10/27/2021 Performed by Darren Lackey MD at [facility] INJECTION BLOCK NERVE MEDIAL BRANCH: bilat L 3/4 Bilateral 07/07/2021 Performed by Darren Lackey MD at [facility] INJECTION BLOCK SACROILIAC JOINT Bilateral 04/17/2021 Performed by Darren Lackey MD at [facility] INJECTION SPINE TRANSFORAMINAL: right L 3,4 Nroot Right 09/01/2021 Performed by Darren Lackey MD at [facility] JOINT REPLACEMENT knees- right x2, left x1 KNEE SURGERY rt knee inf removed tka added rods LITHOTRIPSY LUMBAR DISCECTOMY L4-5 Left 10/16/2018 Performed by Suzanne Silverio DO at [facility] STOMACH SURGERY 04/2021 sleeve Allergies Allergen Reactions [...] Risk (03/28/2022) Received from [facility], [facility] Overall Financial Resource Strain (CARDIA) Difficulty of Paying Living Expenses: Not hard at all Food Insecurity: No Food Insecurity (12/05/2023) Hunger Screening Food Insecurity - Worry: Never True Food Insecurity - Inability: Never True Transportation Needs: Unknown (03/28/2022) Received from [facility], [facility] PRAPARE - Transportation Lack of Transportation (Medical): No Lack of Transportation (Non-Medical): Not on file Physical Activity: Inactive (12/01/2021) Received from [facility], [facility] Exercise Vital Sign Days of Exercise per Week: 0 days Minutes of Exercise per Session: 20 min Stress: No Stress Concern Present (12/01/2021) Received from [facility], [facility] of Occupational Health - Occupational Stress Questionnaire Feeling of Stress : Not at all Social Connections: Moderately Isolated (12/01/2021) Received from [facility], [facility] Social Connection and Isolation Panel [NHANES] Frequency of Communication with Friends and Family: More than three times a week Frequency of Social Gatherings with Friends and Family: Once a week Attends Restorationism Services: Never Active Member of Clubs or Organizations: No Attends Club or Organization Meetings: Never Marital Status: Interpersonal Safety: Unknown (04/18/2023) Received from [facility] [place] Safety & [place] Fear of Current or Ex-Partner: Not on file Emotionally Abused: Not on file Physically Abused: Not on file Sexually Abused: Not on file Physically or Sexually Abused: Not on file Housing Instability: Unknown (03/28/2022) Received from [facility], [facility] Housing Stability Vital Sign Unable [...] Oleary RN 02/13/24 1329 [place]ARLET Agustin 02/13/24 1607 documented in this encounter [facility] 12-05-2023 History of Present illness Narrative [facility] [address] [place] [address] Patient: Sukhdeep Simental Sex: male : 1965 Age: 58 y.o. PCP: BLAYNE ISABEL MD 12/05/2023 Sukhdeep Simental is here for a(n) follow up for his [facility] work injury. He reports he remains about the same as last visit. Chief Complaint Patient presents with Back Pain HPI: 12/07/2022 L2/3 fusion and revised L3/4, S1 at [facility] per patient. Bilateral SI joint injection on 04/17/2021 with 10% relief, pain is worse. 07/07/21 Bilateral L3/4 Medial branch block with no relief. right L 3, 4 nerve root injection on 09/01/2021 with no relef. Back Pain This is a chronic problem. The current episode started more than 1 year ago (surgery 10/16/18 discectomy and 07/10/2019 fusion in [place]). The problem occurs constantly. The problem is [...] disorder Claustrophobia Diabetes mellitus type 2, controlled ([facility]) Fractures Hyperlipidemia Hypertension Joint pain Low back pain Major depression Obesity Osteoarthritis Pulmonary embolism ([facility]) Seasonal allergies Sleep apnea does not use machine Sleep apnea Visual impairment glasses Past Surgical History: Procedure Laterality Date ANKLE SURGERY spurs removed INJECTION BLOCK EPIDURAL CAUDAL STEROID N/A 10/27/2021 Performed by Darren Lackey MD at [facility] INJECTION BLOCK NERVE MEDIAL BRANCH: bilat L 3/4 Bilateral 07/07/2021 Performed by Darren Lackey MD at [facility] INJECTION BLOCK SACROILIAC JOINT Bilateral 04/17/2021 Performed by Darren Lackey MD at [facility] INJECTION SPINE TRANSFORAMINAL: right L 3,4 Nroot Right 09/01/2021 Performed by Darren Lackey MD at [facility] JOINT REPLACEMENT knees- right x2, left x1 KNEE SURGERY rt knee inf removed tka added rods LITHOTRIPSY LUMBAR DISCECTOMY L4-5 Left 10/16/2018 Performed by Suzanne Silverio DO at [facility] STOMACH SURGERY 04/2021 sleeve Allergies Allergen Reactions [...] Risk (03/28/2022) Received from [facility], [facility] Overall Financial Resource Strain (CARDIA) Difficulty of Paying Living Expenses: Not hard at all Food Insecurity: No Food Insecurity (12/05/2023) Hunger Screening Food Insecurity - Worry: Never True Food Insecurity - Inability: Never True Transportation Needs: Unknown (03/28/2022) Received from [facility], [facility] PRAPARE - Transportation Lack of Transportation (Medical): No Lack of Transportation (Non-Medical): Not on file Physical Activity: Inactive (12/01/2021) Received from [facility], [facility] Exercise Vital Sign Days of Exercise per Week: 0 days Minutes of Exercise per Session: 20 min Stress: No Stress Concern Present (12/01/2021) Received from [facility], [facility] [employer] of Occupational Health - Occupational Stress Questionnaire Feeling of Stress : Not at all Social Connections: Moderately Isolated (12/01/2021) Received from [facility], [facility] Social Connection and Isolation Panel [NHANES] Frequency of Communication with Friends and Family: More than three times a week Frequency of Social Gatherings with Friends and Family: Once a week Attends Restorationism Services: Never Active Member of Clubs or Organizations: No Attends Club or Organization Meetings: Never Marital Status: Interpersonal Safety: Unknown (04/18/2023) Received from [facility] [place] Fear of Current or Ex-Partner: Not on file Emotionally Abused: Not on file Physically Abused: Not on file Sexually Abused: Not on file Physically or Sexually Abused: Not on file Housing Instability: Unknown (03/28/2022) Received from [facility], [facility] Housing Stability Vital Sign Unable to Pay for Housing in the Last Year: Not on file Number of Places Lived in the Last Year: Not on file In the last 12 months, was there a time when you did not have a steady place to sleep or slept in a prison (including now)?: No Review of Systems Constitutional: [...] Agustin 12/12/23 0942 documented in this encounter [facility] [employer] 10-07-2023 Telephone encounter Note Pt phoned to ensure todays appt was via phone as noted in appt. Pt unable to manage computer. [facility] 10-07-2023 Miscellaneous Notes Pt phoned to ensure todays appt was via phone as noted in appt. Pt unable to manage computer. documented in this encounter [facility] 10-04-2023 Telephone encounter Note [facility] report XR Lumbar Spine 2-3v scanned to Epic [facility] 10-04-2023 Miscellaneous Notes [facility] report XR Lumbar Spine 2-3v scanned to Epic documented in this encounter [facility] 08-15-2023 History of Present illness Narrative [facility] [address] [place] [address] Patient: Sukhdeep Simental Sex: male : 1965 Age: 57 y.o. PCP: BLAYNE ISABEL MD 08/15/2023 Sukhdeep Simental is here for a(n) follow up for his [facility] work injury. He reports he has pain higher than before surgery. Chief Complaint Patient presents with Back Pain HPI: 12/07/2022 L2/3 fusion and revised L3/4, S1 at [facility] per patient. Bilateral SI joint injection on 04/17/2021 with 10% relief, pain is worse. 07/07/21 Bilateral L3/4 Medial branch block with no relief. right L 3, 4 nerve root injection on 09/01/2021 with no relef. Back Pain This is a chronic problem. The current episode started more than 1 year ago (surgery 10/16/18 discectomy and 07/10/2019 fusion in [place]). The problem occurs constantly. The problem has [...] disorder Claustrophobia Diabetes mellitus type 2, controlled ([facility]) Fractures Hyperlipidemia Hypertension Joint pain Low back pain Major depression Obesity Osteoarthritis Pulmonary embolism ([facility]) Seasonal allergies Sleep apnea does not use machine Sleep apnea Visual impairment glasses Past Surgical History: Procedure Laterality Date ANKLE SURGERY spurs removed INJECTION BLOCK EPIDURAL CAUDAL STEROID N/A 10/27/2021 Performed by Darren Lackey MD at [facility] INJECTION BLOCK NERVE MEDIAL BRANCH: bilat L 3/4 Bilateral 07/07/2021 Performed by Darren Lackey MD at [facility] INJECTION BLOCK SACROILIAC JOINT Bilateral 04/17/2021 Performed by Darren Lackey MD at [facility] INJECTION SPINE TRANSFORAMINAL: right L 3,4 Nroot Right 09/01/2021 Performed by Darren Lackey MD at [facility] JOINT REPLACEMENT knees- right x2, left x1 KNEE SURGERY rt knee inf removed tka added rods LITHOTRIPSY LUMBAR DISCECTOMY L4-5 Left 10/16/2018 Performed by Suzanne Silverio DO at [facility] STOMACH SURGERY 04/2021 sleeve Allergies Allergen Reactions [...] Risk (03/28/2022) Received from [facility], [facility] Overall Financial Resource Strain (CARDIA) Difficulty of Paying Living Expenses: Not hard at all Food Insecurity: No Food Insecurity (08/15/2023) Hunger Screening Food Insecurity - Worry: Never True Food Insecurity - Inability: Never True Transportation Needs: Unknown (03/28/2022) Received from [facility], [facility] PRAPARE - Transportation Lack of Transportation (Medical): No Lack of Transportation (Non-Medical): Not on file Physical Activity: Inactive (12/01/2021) Received from [facility], [facility] Exercise Vital Sign Days of Exercise per Week: 0 days Minutes of Exercise per Session: 20 min Stress: No Stress Concern Present (12/01/2021) Received from [facility], [facility] [employer] of Occupational Health - Occupational Stress Questionnaire Feeling of Stress : Not at all Social Connections: Moderately Isolated (12/01/2021) Received from [facility], [facility] Social Connection and Isolation Panel [NHANES] Frequency of Communication with Friends and Family: More than three times a week Frequency of Social Gatherings with Friends and Family: Once a week Attends Restorationism Services: Never Active Member of Clubs or Organizations: No Attends Club or Organization Meetings: Never Marital Status: Interpersonal Safety: Unknown (04/18/2023) Received from [facility] [place] [employer] [place] Fear of Current or Ex-Partner: Not on file Emotionally Abused: Not on file Physically Abused: Not on file Sexually Abused: Not on file Physically or Sexually Abused: Not on file Housing Instability: Unknown (03/28/2022) Received from [facility], [facility] Housing Stability Vital Sign Unable to Pay for Housing in the Last Year: Not on file Number of Places Lived in the Last Year: Not on file In the last 12 months, was there a time when you did not have a steady place to sleep or slept in a prison (including now)?: No Review of Systems Constitutional: [...] Agustin 08/15/23 1311 documented in this encounter [facility] 07-30-2023 Telephone encounter Note Called Sukhdeep, no answer, left VM [facility] Work Phone: 07-30-2023 Miscellaneous Notes Called Sukhdeep, no answer, left VM Have sent XR Lumbar order to [facility] fax # [phone] as requested from patient. Pt [facility] Pt unable to manage virtual visit asking for telephone visit. Pt asking how far in advance to do X-Ray. Pt will have X-Ray done locally at [facility]. Please call and advise Pt phone # [phone] documented in this encounter [facility] 07-30-2023 Telephone encounter Note Have sent XR Lumbar order to [facility] fax # [phone] as requested from patient. [facility] 07-30-2023 Telephone encounter Note Pt phoned regarding upcoming [facility] Pt unable to manage virtual visit asking for telephone visit. Pt asking how far in advance to do X-Ray. Pt will have X-Ray done locally at [facility]. Please call and advise Pt phone # [phone] [facility] 07-26-2023 Telephone encounter Note Office note faxed. Faxed verification received. [facility] 07-26-2023 Miscellaneous Notes Office note faxed. Faxed verification received. Printed for review. Received request from [employer], in [employer] for review. documented in this encounter [facility] 07-23-2023 Telephone encounter Note Printed for review. [facility] 07-23-2023 Telephone encounter Note Received request from [employer], in [employer] for review. [facility] 05-08-2023 History of Present illness Narrative SPINE SURGERY FOLLOW UP This is a virtual visit using Audio Only Visit. It required patient-provider interaction for the medical decision making as documented below. I have communicated my name and active licensure. The patient's identity and physical location were verified at the time of this visit. Either the patient or their legal accounts receivable representative has been informed of the risks [...] visit. Either the patient or their legal accounts receivable representative has been informed of the risks [...] 4:00 PM PAGER: documented in this encounter [facility] 05-08-2023 Miscellaneous Notes A letter was [...] made. Message left. [facility] 05-08-2023 Telephone encounter Note A letter [...] time call was made. Message left. [facility] 05-07-2023 Miscellaneous Notes Call received from Hannah, patient's medical case worker. She called as patient's MEDCO-14 is expiring soon. Hannah is informed that patient called about this and an updated MEDCO-14 was completed and faxed on 05/03/2023. Hannah states she is his medical case worker and would like information sent to her at - wktp. She asked what the form states. She [...] will be 05/15/2023-11/14/2023. documented in this encounter [facility] 05-07-2023 Telephone encounter Note Call received from Hannah, patient's medical case worker. She called as patient's MEDCO-14 is expiring soon. Hannah is informed that patient called about this and an updated MEDCO-14 was completed and faxed on 05/03/2023. Hannah states she is his medical case worker and would like information sent [...] new dates for restrictions will be 05/15/2023-11/14/2023. [facility] 04-18-2023 Miscellaneous Notes Signed form faxed to number requested. Faxed verification received. Printed for review and signature. Received PT Certification from [facility]. Scanned to chart for provider signature. documented in this encounter [facility] 04-16-2023 Miscellaneous Notes Received imaging disc by mail from [facility]. Disc contains CT Lumbar spine done on 04/03/23. Will place in nurse folder in [address]. documented in this encounter [facility] 04-09-2023 Miscellaneous Notes Called & spoke with Sukhdeep Asked him to obtain imaging disc & send to our office. Will require images to be uploaded to assess for bony fusion at previous surgical site and adjacent segment disease. Received CT Lumbar Spine Report from [facility], in epic to review. documented in this encounter [facility] 02-14-2023 History of Present illness Narrative [facility] [address] [place] [address] Patient: Sukhdeep Simental Sex: male : 1965 Age: 57 y.o. PCP: BLAYNE ISABEL MD 02/14/2023 Sukhdeep Simental is here for a 6 month follow up for his [facility] work injury. Chief Complaint Patient presents with Back Pain HPI: 12/07/2022 L2/3 fusion and revised L3/4, S1 at [facility] per patient. Bilateral SI joint injection on 04/17/2021 with 10% relief, pain is worse. 07/07/21 Bilateral L3/4 Medial branch block with no relief. right L 3, 4 nerve root injection on 09/01/2021 with no relef. Back Pain This is a chronic problem. The current episode started more than 1 year ago (surgery 10/16/18 discectomy and 07/10/2019 fusion in [place]). The problem occurs constantly. The problem has [...] disorder Claustrophobia Diabetes mellitus type 2, controlled ([facility]) Fractures Hyperlipidemia Hypertension Joint pain Low back pain Major depression Obesity Osteoarthritis Pulmonary embolism ([facility]) Seasonal allergies Sleep apnea does not use machine Sleep apnea Visual impairment glasses Past Surgical History: Procedure Laterality Date ANKLE SURGERY spurs removed INJECTION BLOCK EPIDURAL CAUDAL STEROID N/A 10/27/2021 Performed by Darren Lackey MD at [facility] INJECTION BLOCK NERVE MEDIAL BRANCH: bilat L 3/4 Bilateral 07/07/2021 Performed by Darren Lackey MD at [facility] INJECTION BLOCK SACROILIAC JOINT Bilateral 04/17/2021 Performed by Darren Lackey MD at [facility] SPINE TRANSFORAMINAL: right L 3,4 Nroot Right 09/01/2021 Performed by Darren Lackey MD at [facility] JOINT REPLACEMENT knees- right x2, left x1 KNEE SURGERY rt knee inf removed tka added rods LITHOTRIPSY LUMBAR DISCECTOMY L4-5 Left 10/16/2018 Performed by Suzanne Silverio DO at [facility] STOMACH SURGERY 04/2021 sleeve Allergies Allergen Reactions [...] CNA 02/14/23 1237 Sonal Rodriguez CNA 02/14/23 1254 SCARLET Agustin 02/21/23 1158 documented in this encounter [facility] 02-07-2023 Miscellaneous Notes C9 for physical therapy faxed to [employer]. Faxed verification received. documented in this encounter [facility] 02-07-2023 History of Present illness Narrative [...] which included preparing to see the patient, vjbl-ew-yypy patient care, completing clinical documentation, obtaining and/or reviewing separately obtained history, performing a medically appropriate examination, counseling and educating the patient/family/caregiver, and ordering medications, tests, or procedures. SIGNATURE: Riddhi Goss APRN.CNP PATIENT NAME: Sukhdeep Simental DATE: February 07, 2023 TIME: 2:39 PM PAGER: documented in this encounter [facility] 02-04-2023 Hospital Discharge instructions Patient Education [...] include: ?8 oz (237 mL) of milk, owaqnce-vylmnolgqzvq-ayqet milk, and calcium-fortifiedfruit juice. Calcium-fortified means that [...] ?Spinach (cooked), rhubarb, beets, sweet potatoes, and Austrian chard. ?Peanuts. ?Potato chips, bahraini fries, and baked potatoes with skin on. ?Nuts and nut products. ?Chocolate. If you regularly take a diuretic medicine, make sure to eat at least 1 or 2 servings of fruits or vegetables that are high in potassium each day. These include: ?Avocado. ?Banana. ?[place], prune, carrot, or tomato juice. ?Baked potato. [...] magnesium, fish oil, or vitamin B6. Take liqh-vax-xeekefo and prescription medicines only as told by [...] Casseroles. Pizza. Lasagna. Frozen meals. Potato chips. Singaporean fries. The items listed above may not [...] provider. Document Revised: 05/24/2022 Document Reviewed: 05/24/2022 [place] Patient Education 2022 [employer]. Follow Up Care 07/27/2022 14:20:34 With:LIDIA JACOBS, Cecelia Jj, URL Address: [facility] [address] , [place] [address]- When:Within 1 Year(s) Comments:w/CT AP w/o José [facility] 01-23-2023 Miscellaneous Notes Received fax from [employer]. Scanned into [employer]. Also received a RTW from [employer] Scanned into [employer] as well. 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 documented in this encounter [facility] 12-20-2022 History of Present illness Narrative [...] which included preparing to see the patient, jzqf-fa-zrmo patient care, completing clinical documentation, obtaining and/or reviewing separately obtained history, performing a medically appropriate examination, counseling and educating the patient/family/caregiver, and ordering medications, tests, or procedures. SIGNATURE: Singh Morgan PA-C PATIENT NAME: Sukhdeep Simental DATE: December 20, 2022 TIME: 2:58 PM PAGER: documented in this encounter [facility] 12-17-2022 Miscellaneous Notes Forms completed and signed by provider. Faxed to number provided and and Sukhdeep notified via voice mail, as requested. Scanned into [employer]. Form completed. Awaiting signature. Printed for review. Received FMLA form by fax from patient's . Scanned to patient's chart for review and completion. documented in this encounter [facility] 12-13-2022 Miscellaneous Notes Spoke with patient [...] a kenya. Xi Schrader PA-C Patient at [phone] is requesting a call back. He had back surgery on 12-07. He states for the past 2 days his right ring and little finger has been numb. documented in this encounter [facility] 12-12-2022 Miscellaneous Notes Spoke with pharmacy and was informed that medication is approved. No prior authorization needed. Patient called stating pharmacy needs a prior authorization for oxycodone 15 mg. I called the pharmacy on 12/12/2022 at 9:40 AM. Insurance will not pay for the frequency of medication written. They will cover q12h. Prescription changed to oxycodone 15 mg 12h. [employer] [id number] [place] [address] [address] - [phone] Pharmacist at [facility] wanted to inform the office that this patient already takes Percocet 10-325 every 6 hours, picked it up 13 days ago. They tried running the Percocet but his insurance will not cover both. Please call them back with new instructions. documented in this encounter [facility] 12-11-2022 Note HNO ID: [id number] Author: Lulu Oviedo MD Service: General Internal [...] 10 mg tab( (more content not included)... [facility] 12-10-2022 Note HNO ID: [id number] Author: Lulu Oviedo MD Service: General Internal [...] (99 ?F) Oral 79 18 91 % 12/09/228 135/66 36.9 ?C (98.4 ?F) Oral 77 [...] 10% iv bolu (more content not included)... 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 He denies new weakness, numbness, [...] (TYLENOL) 1,000 mg ORAL q 8 H Archual, Alyssa, RESTAURANT COOK.SPEECH LANGUAGE PATHOLOGIST PRN 1,000 mg at 12/09/22 0559 aluminum-magnesium hydroxide-simethicone 200-200-20 mg/5 mL 30 mL 30 mL ORAL q 6 H PRN Archual, Alyssa, RESTAURANT COOK.SPEECH LANGUAGE PATHOLOGIST PRN bisacodyl EC 10 mg tab(s) (DULCOLAX) 10 mg ORAL DAILY PRN Archual, Alyssa, RESTAURANT COOK.SPEECH LANGUAGE PATHOLOGIST PRN dextrose 40 % 15 g 15 g ORAL PRN Archual, Alyssa, RESTAURANT COOK.SPEECH LANGUAGE PATHOLOGIST PRN Or glucagon 1 mg injection 1 mg INTRAMUSCULAR PRN Archual, Alyssa, RESTAURANT COOK.SPEECH LANGUAGE PATHOLOGIST PRN Or dextrose 10% iv bolus 12.5 g INTRAVENOUS PRN Archual, Alyssa, RESTAURANT COOK.SPEECH LANGUAGE PATHOLOGIST PRN docusate sodium 100 mg cap(s) (COLACE) 100 mg ORAL BID Thomas Mathew MD 100 mg at 12/09/22 0821 doxazosin 4 mg tab(s) (CARDURA) 4 mg ORAL DAILY Thomas Mathew MD 4 mg at 12/09/22 0821 fentaNYL [employer] RESOURCE TEACHER 20 mcg/mL in NaCl 0.9% 100 mL (SUBLIMAZE) INTRAVENOUS CONTINUOUS Archual, Alyssa, RESTAURANT COOK.SPEECH LANGUAGE PATHOLOGIST PRN ferrous sulfate 325 mg tab(s) 325 mg ORAL DAILY Archual, Alyssa, RESTAURANT COOK.SPEECH LANGUAGE PATHOLOGIST PRN 325 mg at 12/09/22 0821 heparin 5,000 Units injection 5,000 Units SUBCUTANEOUS q 12 H Archual, Alyssa, RESTAURANT COOK.SPEECH LANGUAGE PATHOLOGIST PRN 5,000 Units at 12/09/22 0821 hydrOXYzine HCl 25 mg tab(s) (ATARAX) 25 mg ORAL q 6 H PRN Archual, Alyssa, RESTAURANT COOK.SPEECH LANGUAGE PATHOLOGIST PRN insulin lispro injection (rapid acting) (HumaLOG) SUBCUTANEOUS w MEALS AND HS Archual, Alyssa, RESTAURANT COOK.SPEECH LANGUAGE PATHOLOGIST PRN 1 Units at 12/07/22 1803 lactated ringers iv infusion 75 mL/hr INTRAVENOUS CONTINUOUS Thomas Mathew MD 75 mL/hr at 12/09/22 1018 75 mL/hr at 12/09/22 1018 methocarbamol 750 mg tab(s) (ROBAXIN) 750 mg ORAL QID Archual, Alyssa, RESTAURANT COOK.SPEECH LANGUAGE PATHOLOGIST PRN NaCl 0.9% iv flush bag 20 mL INTRAVENOUS PRN Thomas Mathew MD naloxone 0.1 mg injection (NARCAN) 0.1 mg INTRAVENOUS q 2 MIN PRN Archual, Alyssa, RESTAURANT COOK.SPEECH LANGUAGE PATHOLOGIST PRN omeprazole 20 mg cap(s) (PriLOSEC) 20 mg ORAL 2 times per day [facility] 20 mg at 12/08/222019 ondansetron 4 mg tab(s) (ZOFRAN) 4 mg ORAL q 6 H PRN Thomas Mathew MD Or ondansetron (PF) 4 mg injection (ZOFRAN) 4 mg INTRAVENOUS q 6 H PRN Thomas Mathew MD 4 mg at 12/09/22 0941 polyethylene glycol 3350 17 g packet 17 g ORAL DAILY Archual, Alyssa, RESTAURANT COOK.SPEECH LANGUAGE PATHOLOGIST PRN 17 g at 12/09/22 0821 simvastatin 10 mg tab(s) (ZOCOR) 10 mg ORAL AT BEDTIME Thomas Mathew MD 10 mg at 12/08/222019 tamsulosin 0.4 mg cap(s) (FLOMAX) 0.4 mg ORAL DAILY Thomas Mathew MD 0.4 mg at 12/09/22 0821 traZODone 150 mg tab(s) (DESYREL) 150 mg ORAL AT BEDTIME Alyssa Tim APRN.SPEECH LANGUAGE PATHOLOGIST PRN 150 mg at 12/08/222019 valsartan 80 mg tab(s) (DIOVAN) 80 mg ORAL DAILY Alyssa Tim APRN.SPEECH LANGUAGE PATHOLOGIST PRN 80 mg at 12/09/22 0822 ASSESSMENT AND PLAN Sukhdeep Simental is a [...] pain control, Pain management consulted, 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 -Check postop lumbar XR today -Medicine consult for post-operative medical management -Discharge planning, anticipate discharge home in 1-2 more days. Plan of care discussed with Dr. Mathew via phone. Medication and Non-Pharmacologic VTE Prophylaxis/Anticoagulants 10/25/21 1215 vte pharmacologic prophylaxis contraindicated (fl,oh) (more content not included)... [facility] 12-08-2022 Note HNO ID: [id number] Author: Alyssa Tim APRN.SPEECH LANGUAGE PATHOLOGIST PRN Service: Neurosurgery Author Type: Nurse Practitioner Type: [...] on POD #2 -Post-operative pain control, Dilaudid [employer] RESOURCE TEACHER discontinued. Continue Tylenol, Toradol IV, and Robaxin PRN. Start oxycodone every 3 hours PRN and Dilaudid IV PRN. -Check postop XR tomorrow. -Medicine consult for post-operative medical management -Discharge planning, anticipate discharge home in 1-2 more days. Plan of care discussed with Dr Hopper via phone. Medication and Non-Pharmacologic VTE Prophylaxis/Anticoagulants 10/25/21 1215 vte pharmacologic prophylaxis contraindicated (vt,mt) 10/25/21 1215 pneumatic compression stockings (vt,mt) 10/25/21 1215 activity - mobilize patient ([place], [place]) VTE Prophylaxis: VTE prophylaxis appropriate SIGNATURE: Alyssa Tim APRN.SPEECH LANGUAGE PATHOLOGIST PRN DATE: December 08, 2022 TIME: 1:50 PM [facility] 12-08-2022 Note HNO ID: [id number] Author: Note, Interface Service: ? Author Type: ? Type: Progress Notes Filed: 12/08/2022 3:59 AM Note Text: Epic Scheduled Downtime: 12/08/2022 1:00:00 AM to 12/08/2022 1:28:00 AM [facility] 12-07-2022 Note HNO ID: [id number] Author: Aaron Noriega AA Service: Anesthesiology Author Type: Subscription Agent Type: Anesthesia Procedure Notes Filed: 12/07/2022 8:04 [...] December 07, 2022 TIME: 8:03 AM CSN: [id number] [facility] 12-06-2022 Evaluation note Encounter Date [...] has adequate iron stores. 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 12/07/2022 documented as of this encounter (statuses as of 12/13/2022) [facility] History of Past illness Narrative* Problem Noted Date Diagnosed Date Resolved Date Secondary hyperparathyroidism 11/21/2022 11/21/2022 11/21/2022 Corneal edema, unspecified 12/10/2013 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 12/07/2022 documented as of this encounter (statuses as of 12/18/2022) [facility] History of Past illness Narrative* Problem Noted Date Diagnosed Date Resolved Date Secondary hyperparathyroidism 11/21/2022 11/21/2022 11/21/2022 Corneal edema, unspecified 12/10/2013 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 12/07/2022 documented as of this encounter (statuses as of 12/21/2022) [address]27-2023 History of Past illness Narrative* Problem Noted Date Diagnosed Date Resolved Date Secondary hyperparathyroidism 11/21/2022 11/21/2022 11/21/2022 Corneal edema, unspecified 12/10/2013 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 12/07/2022 documented as of this encounter (statuses as of 12/21/2022) [address]27-2023 History of Past illness Narrative* Problem Noted Date Diagnosed Date Resolved Date Secondary hyperparathyroidism 11/21/2022 11/21/2022 11/21/2022 Corneal edema, unspecified 12/10/2013 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 12/07/2022 documented as of this encounter (statuses as of 01/24/2023) [address]-2023 History of Past illness Narrative* Problem Noted Date Diagnosed Date Resolved Date Secondary hyperparathyroidism 11/21/2022 11/21/2022 11/21/2022 Corneal edema, unspecified 12/10/2013 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 12/07/2022 documented as of this encounter (statuses as of 02/08/2023) [address]-2023 History of Past illness Narrative* Problem Noted Date Diagnosed Date Resolved Date Secondary hyperparathyroidism 11/21/2022 11/21/2022 11/21/2022 Corneal edema, unspecified 12/10/2013 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 12/07/2022 documented as of this encounter (statuses as of 02/09/2023) [address]-2023 History of Past illness Narrative* Problem Noted Date Diagnosed Date Resolved Date Secondary hyperparathyroidism 11/21/2022 11/21/2022 11/21/2022 Corneal edema, unspecified 12/10/2013 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 12/07/2022 documented as of this encounter (statuses as of 04/09/2023) [address]-2023 History of Past illness Narrative* Problem Noted Date Diagnosed Date Resolved Date Secondary hyperparathyroidism 11/21/2022 11/21/2022 11/21/2022 Corneal edema, unspecified 12/10/2013 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 12/07/2022 documented as of this encounter (statuses as of 04/18/2023) [facility] History of Past illness Narrative* Problem Noted Date Diagnosed Date Resolved Date Secondary hyperparathyroidism 11/21/2022 11/21/2022 11/21/2022 Corneal edema, unspecified 12/10/2013 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 12/07/2022 documented as of this encounter (statuses as of 05/13/2023) [facility] History of Past illness Narrative* Problem Noted Date Diagnosed Date Resolved Date Secondary hyperparathyroidism 11/21/2022 11/21/2022 11/21/2022 Corneal edema, unspecified 12/10/2013 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 Given both written and verbal instructions re : Skin prep, wound care, pain management and post op restrictions. Provided to patient: [facility] Surgery Guide, skin prep supplies, Spine Surgery Pre/post op education packet. Yes Reviewed with patient to report to the registration desk for surgery? Yes. Reviewed with the patient that a surgery utility sales representative will call the working day [...] lab work : To be completed at [facility]. Questions answered. Patient verbalizes understanding via teach back. Additional comments : Informed to call with any questions or concerns. Juan Pablo Nova RN [facility] History of Present illness Narrative* Thomas [...] TIME: 2:20 PM PAGER: [facility] NoteHNO ID: [id number] Author: Sonya Wilhelm APRN.SPEECH LANGUAGE PATHOLOGIST PRN Service: ? Author Type: Nurse Practitioner Type: Progress Notes Filed: 10/16/2022 4:03 PM Note Text: Per Triage: Sukhdeep Simental is a 57 year old male that requests evaluation of lumbar spine. Per review, they have symptoms of LBP Hip pain Leg pain (R) Numbness, Tingling Toes Trouble lifting leg (R) Prev surgery yes L4-S1 fusion in [facility] CMT: Injection Muscle relaxants, Zanaflex Studies (Reports [...] schedule with first available lumbar revision surgeon. [facility]08-22-2023 History of Present illness Narrative* Sonya Wilhelm APRN.SPEECH LANGUAGE PATHOLOGIST PRN - 10/16/2022 3:51 PM EDT Per Triage: Sukhdeep Simental is a 57 year old male that requests evaluation of lumbar spine. Per review, they have symptoms of LBP Hip pain Leg pain (R) Numbness, Tingling Toes Trouble lifting leg (R) Prev surgery yes L4-S1 fusion in [facility] CMT: Injection Muscle relaxants, Zanaflex Studies (Reports [...] Health Provider or Pain Management Provider at [facility]? No If answer is YES please schedule [...] [facility] Address: [address] [place] [address] MRI/CT/myelogram viewable in Epic: No If not, please provide [phone] to fax in imaging reports for review. [...] injections and/or physical therapy was completed Injection [facility] Address: [address] [place] [address] Have you tried any other kinds of [...] of where the surgery was completed: 2019 [facility] Address: [address], [place] [address] Additional Comments [phone] (Home Phone) documented [facility] NoteHNO ID: [id number] Author: Adonis Lopez Service: ? Author Type: ? Type: Progress Notes Filed: 10/16/2022 4:03 PM Note Text: Patient name: Sukhdeep Simental Are you being referred by a [place] for Spine Health Provider or Pain Management Provider at [facility]? No If answer is YES please [...] [facility] Address: [address] [place] [address] MRI/CT/myelogram viewable in Epic: No If not, please provide [phone] to fax in imaging reports for review. [...] injections and/or physical therapy was completed Injection [facility] Address: [address] [place] [address] Have you tried any other kinds of [...] of where the surgery was completed: [facility] Address: [address] [place] [address] [address], [place] [address] Additional Comments [phone] (Home Phone)[facility]04-27-2023 Evaluation note* Encounter Date Diagnosis [...] will continue to monitor without any medications. [facility] Other 01-23-2023 Hospital Discharge instructions Patient Education [...] include: ?Spinach. ?Rhubarb. ?Beets. ?Potato chips and bahraini fries. ?Nuts. If you regularly take a diuretic medicine, make sure to eat at least 1 2 fruits or vegetables high in potassium each day. These include: ?Avocado. ?Banana. ?[place], prune, carrot, or tomato juice. ?Baked potato. [...] Casseroles. Pizza. Lasagna. Frozen meals. Potato chips. Singaporean fries. Summary You can reduce your risk [...] 06/08/2011 Document Revised: 06/03/2019 Document Reviewed: 01/22/2017 [employer] Patient Education 2020 [employer]. Follow Up Care 03/15/2022 09:49:40 With:LIDIA JACOBS, Cecelia Jj, URL Address: [facility] [address], [place] [address]- When: Unknown [facility] 01-16-2023 NoteIndication: Renal mass. Comparison: 07/14/2021 [...] Electronically authenticated by: CITLALI GIRON Date: 2022-03-12 18:03[facility]10-21-2022 Evaluation note* Encounter Date Diagnosis [...] be cultured for infection, gonorrhea, chlamydia, yeast. [facility] Other 08-31-2022 Evaluation note* Encounter Date Diagnosis [...] paraproteinemia due to the CKD and anemia. [facility] Other 04-01-2022 History of Present illness Narrative* [...] respiratory failure * Lucrecia Lake APRN - SPEECH LANGUAGE PATHOLOGIST PRN - 05/26/2021 12:10 PM EDT Images from the original note were not included. Stanley Assembler Erector Progress Note Date: 05/26/2021 Patient name: Sukhdeep [...] Ok for d/c from cardiology standpoint. Mix Assembler Erector [facility]. [phone] * Octavio Mcclellan DO - 05/25/2021 5:42 [...] Foreman RN - 05/25/2021 8:32 AM EDT Rogelio Assembler Erector Documentation Note Admission Dx: S/P laparoscopic sleeve [...] anticoagulation 6. Follow-up on an annual basis BRETT Mcgraw Assembler Erector * Sonya Ramírez DO - 05/25/2021 6:45 AM EDT General [...] Day of Surgery/Procedure As a patient at [facility] you can expect quality medical and nursing care that is centered on your individual needs. Our goal is to make your surgical experience as comfortableas possible . Directions to the Surgery Center [facility] is located at [address] [place] [address]. Please pull into the Emergency parking lot and stop at the young adult librarian ojeda. We offer free young adult librarian service for all our surgery patients, if you choose not to have young adult librarian parking we have additional parking across the street.You will enter the facility under the blue canopy/walkway following the [facility] sign. Please stop at the hotel receptionist desk where you will be checked in by the staff. If you have any questions please call [phone]. Transportation after your procedure. You will need a friend or family member to drive you home after your procedure. Your pole truck driver must be18 years of age [...] You may shave your face or neck. [place] your teeth but do not swallow water. [...] or the day of surgery, please call [phone], or [phone] documented in this [facility] Phone: 1(733) 940-274703-31-2022 Hospital Discharge instructions* Discharge Instr - KAMARI* Jenny Lentz RN - 05/25/2021 5:44 PM EDT PHYSICIAN SIGNATURE: * Additional Instructions* Jenny Lentz RN - 05/26/2021 Discharge Instructions for Bariatric Surgery You had a Laparoscopic Sleeve Gastrectomy (43769) surgery to treat obesity. Recovery from this [...] scheduled appointment, please call the office at [phone]. Call Your Doctor If Any of the [...] sent through Care Everywhere. * Enoxaparin (Lovenox) (Swazi) * metoprolol (oral/injection) (Swazi) * acetaminophen and oxycodone (Swazi) [facility] this [facility] Phone: [phone] 391-926003-09-2022 Hospital Discharge instructions* Instructions* Etelvina Ledbetter APRN - SPEECH LANGUAGE PATHOLOGIST PRN - 05/03/2021 Pre-operative Instructions Please arrive at [...] list you provided today, ACCORDING TO YOUR TRANSPORTATION JOB TITLES, PLEASE HOLD ELIQUIS 3 DAYS PRIOR TO [...] public transportation ALONE is not acceptable. -Your pole truck driver must be 18 years of [...] Day of Surgery/Procedure As a patient at [facility] you can expect quality medical and nursing care that is centered on your individual needs. Our goal is to make your surgical experience as comfortableas possible . Directions to the Surgery Center [facility] is located at [address] [place] [address]. Please pull into the Emergency/Surgery Center parking lot and stop at the [employer]. We offer free young adult librarian service for all our surgery patients, if you choose not to have young adult librarian parking we have additional parking across the [...] pharmacy bottles in a zip lock bag. [place] your teeth but do not swallow water. [...] DAY OF your surgery, you may call [phone] documented in this [facility] Work Phone: evaluation + Plan note Future Appointments Appointment Date:07/16/2022 02:45:00 PM Scheduled Provider:Cecelia MURILLO MD Location:[facility] Appointment Type:URO Office Visit [facility] evaluation + Plan note Future Appointments Appointment Date:02/04/2023 09:15:00 AM Scheduled Provider:Cecelia MURILLO MD Location:[facility] Appointment Type:URO Office Visit General Surgery [place] Evaluation + Plan note Future Appointments Appointment Date:02/03/2024 10:30:00 AM Scheduled Provider:Cecelia MURILLO MD Location:[facility] Appointment Type:URO Office Visit Diagnostic Tests Pending * PSA Total 02/04/23 [facility] evaluation + Plan note Future Appointments Appointment Date:08/13/2025 10:45:00 AM Scheduled Provider:Cecelia MURILLO MD Location:[facility] Appointment Type:URO Office Visit Diagnostic Tests Pending * PSA Total 06/25/25 [facility] evaluation + Plan note Future Appointments Appointment Date:08/13/2025 10:45:00 AM Scheduled Provider:Cecelia MURILLO MD Location:[facility] Appointment Type:URO Office Visit [facility] evalaxvoge note* Diagnosis Pre-op chest exam Pre-operative respiratory examination documented in this encounter [employer] Phone: [email or web address] note* Diagnosis S/P laparoscopic sleeve gastrectomy- Primary documented in this encounter [employer] Phone: [email or web address] noteNo InformationNonorthwest medical center deeplocal Other Evaluation noteNo assessment information [facility] Work Phone: Evaluation note* Diagnosis Lumbar adjacent segment disease with spondylolisthesis- Primary Lumbar adjacent segment disease with spondylolisthesis documented in this encounter [place] note* Diagnosis Lumbar adjacent segment disease with spondylolisthesis- Primary documented in this encounter [place] note* Diagnosis Lumbar adjacent segment disease with spondylolisthesis- Primary documented in this encounter [place] note* Diagnosis Radiculopathy, lumbar region- Primary Thoracic or lumbosacral neuritis or radiculitis, unspecified documented in this encounter [facility]* Diagnosis Onset Date Resolution Status CKD (chronic kidney disease) stage 3, GFR 30-59 ml/min acute [id number] acute Hyperuricemia acute Microscopic hematuria acute Nephrolithiasis acute Secondary hyperparathyroidism acute Type 2 diabetes 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 acute [facility] Work Phone: Evaluation note* Diagnosis Spinal stenosis, lumbar region, with neurogenic claudication- Primary [facility] Diagnosis Spinal stenosis, lumbar region, with neurogenic claudication- Primary documented in this encounter [facility]* Diagnosis Spinal stenosis, lumbar region, with neurogenic claudication- Primary documented in this encounter [facility] general Narrative - Reported* Type Description Date [...] GASTRIC SLEEVE 04/2021 Hospitalization History SEE ABOVE Apos Therapy Other History general Narrative - Reported* Type Description Date [...] REPLACEMENT 04/16 22 Hospitalization History SEE ABOVE Apos Therapy Other Hospital course Narrative No data available for this section [facility] Hospital Discharge instructions No data available for this section General Surgery [place] InstructionsNot on filedocumented in this encounter [facility] filedocumented in this encounter [facility]Not on filedocumented in this encounter [facility]ructionsNot on filedocumented in this encounter [facility] No data available for this section [facility] reason for referral (narrative)* Diagnostic Procedure Only (Routine) - Pending Review Specialty Diagnoses / Procedures Referred By Contac t Referred To Contact XR IMAGING Diagnoses Lumbar adjacent segment disease with spondylolisthesis Procedures XR LUMBAR LIMITED 2V AP/LAT RADEX SPINE LUMBOSACRAL 2/3 VIEWS Singh Morgan PA-C [address] [place] [address] Xr Imaging [facility] Referral ID Status Reason Start Date Expiration Date Visits Requested Visits Authorized [id number] Pending Review Auto-Generat ed Referral 01/19/2024 1 1 T [facility] for referral (narrative)* Diagnostic Procedure Only (Routine) - Pending Review Specialty Diagnoses / Procedures Referred By Contac t Referred To Contact XR IMAGING Diagnoses Radiculopathy, lumbar region Procedures XR LUMBAR LIMITED 2V AP/LAT RADEX SPINE LUMBOSACRAL 2/[place] [address] [place] [address] Xr Imaging [facility] Referral ID Status Reason Start Date Expiration Date Visits Requested Visits Authorized [id number] Pending Review Auto-Generat ed Referral 05/08/2023 06/06/2024 1 1 [facility] for visit Narrative* Auth/Cert Specialty Diagnoses / Procedures Referred By Contac t Referred To Contact Diagnoses Morbid obesity (HCC) Type II diabetes circulatory disorder causing erectile dysfunction (HCC) Hypertension MORBID OBESITY, TYPE II DIABETES, HYPERTENSION Procedures NJ LAP, JUAN RESTRICT PROC, LONGITUDINAL GASTRECTOMY XI ROBOTIC LAPOROSCOPIC GASTRECTOMY SLEEVE, LIVER BIOPSY, EGD- GI SCHEDULED Octavio Mcclellan DO [address] [facility] [address] [place] [address] [address] [place] [address] Referral ID Status Reason Start Date Expiration Date Visits Re quested Visits Authorized [id number] 1 1 [employer] Phone: Advance Directives Documents on File Type Date Recorded 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 Advance Directives and Living Will Power of Brick Unloader Tender Advance Directive Response Recorded Date/ Time Advance Directives No September 16 2:32pm Documents on File Type Date Recorded 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 ACP-Advance Directive ACP-Power of Brick Unloader Tender Documents on File Type Date Recorded 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 Specialty Diagnoses / Procedures Referred By Enoch luna Referred To Contact [facility] [place] Diagnoses Lumbar adjacent segment disease with spondylolisthesis Procedures [facility]SULT TO [facility]) OFFICE/OUTPATIENT [facility] 60-[place] [address] [place] [address] Referral ID Status Reason Start Date Expiration Date Visits Requested Visits Authorized [id number] Pending Review PCP Requested Referral 11/05/2022 11/05/2023 1 1 Specialty Diagnoses / Procedures Referred By Enoch luna Referred To Contact [facility] Diagnoses Lumbar adjacent segment disease with spondylolisthesis Procedures CONSULT TO PHYSICAL THERAPY PHYSICAL THERAPY EVALUATION HIGH [facility] 45 MINS Riddhi Goss, RESTAURANT COOK.SPEECH LANGUAGE PATHOLOGIST PRN [address] [place] [address] [facility] [place] [address] [place] [address] Referral ID Status Reason Start Date Expiration Date Visits Requested Visits Authorized [id number] Pending Review Auto-Generat ed Referral 3 02/07/2024 [...] with the primary knee being done in 2012. The more he is on it, the more it hurts. His primary complaint is with instability. He presents with excessive swelling in bilateral lower legs. He reports he has been treated in the past by ux lead as well as his PCP. They contribute [...] file Gets together: Not on file Attends methodist service: Not on file Active member of [...] 01/08/2020 2:19 PM Patient: Sukhdeep Simental MR#: [id number] : 1965 Age: 54 y.o. 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 [...] []Chair,[]cane, []bracing Are you followed by a carder blankets? [] [x] Name: Are you followed by [...] kidney disease) stage 3, GFR 30-59 ml/min [id number] Hyperuricemia Microscopic hematuria Nephrolithiasis Secondary hyperparathyroidism Type 2 diabetes mellitus with diabetic chronic kidney disease Discharge Instructions * Attachments The following attachments cannot be sent through Care Everywhere. * Back Pain (Swazi) documented in this encounter Additional Source Comments (unrecognized sect ion and content) No Status Records FoundNo Status Records FoundNo Status Records FoundNo Status Records FoundNo Status Records FoundNo Status Records FoundNo Status Records FoundNo Status Records FoundNo Status Records FoundNo Status Records FoundNo Status Records FoundNo Status Records Found INFORMATION SOURCE (unrecogn ized section and content) DATE CREATED AUTHOR 04/18/2019 [facility] DATE CREATED AUTHOR AUTHOR'S ORGANIZ ATION 06/10/2019 [facility] DATE CREATED AUTHOR AUTHOR'S ORGANIZ ATION 07/21/2021 [facility] DATE CREATED AUTHOR AUTHOR'S ORGANIZ ATION 10/22/2021 [facility] DATE CREATED AUTHOR AUTHOR'S ORGANIZ ATION 01/23/2022 [facility] DATE CREATED AUTHOR AUTHOR'S ORGANIZ ATION 08/04/[address] [facility] DATE CREATED AUTHOR AUTHOR'S ORGANIZ ATION 12/12/2022 [facility] DATE CREATED AUTHOR AUTHOR'S ORGANIZ ATION 07/27/2023 [facility] DATE CREATED AUTHOR AUTHOR'S ORGANIZ ATION 02/16/[address] [facility] DATE CREATED AUTHOR AUTHOR'S ORGANIZ ATION 06/19/2024 [facility] DATE CREATED AUTHOR AUTHOR'S ORGANIZ ATION 06/30/2024 [facility] DATE CREATED AUTHOR AUTHOR'S ORGANIZ ATION 11/19/2024 [facility] Reason for Visit (unrecogniz ed section and content) Status Reason Specialty Diagnoses / Procedures Referred By Contact Referred To Contact Pending Review Diagnoses Hx of total knee arthroplasty, right Procedures XR BONE LENGTH STUDY Alexandro Muhammad MD [address] [place] [address] Reason Comments Pain Status Reason Specialty Diagnoses / Procedures Referred By Contact Referred To Contact Closed Cardiovascular Medicine Diagnoses Localized edema Procedures ECHOCARDIOGRAM NJ ECHO HEART XTHORACIC,COMPLETE W DOPPLER Suzanne Pruett MD [address] [place] [address] [place] Echocardiograph y [address] [place] [address] Reason Comments Back Pain Lower back pain s/p slip on ice Buttocks Pain Rt buttocks pain Reason Comments New Patient Lumbar spine Specialty Diagnoses / Procedures Referred By Contac t Referred To Contact Neurosurgery / NEUROSURGERY Diagnoses lumbar spine eHealth records requested Procedures REFERRAL TO [facility]ANCIAL COUNSELOR NEW SPINE SURGICAL TRIAGE Jason Miller [address] [place] [address] [place] [address] [place] [address] Referral ID Status Reason Start Date Expiration Date V isits Requested Visits Authorized [id number] Outside PCP 11/05/2022 01/04/2023 99 99 Reason Comments Medication Problem Reason Comments post op update Reason Comments FMLA Paperwork Reason Comments Opened In Error Reason Comments Post Op Staple removal Specialty Diagnoses / Procedures Referred By Contac t Referred To Contact Neurosurgery / NEUROSURGERY Diagnoses Follow-up examination post op visit Procedures OFFICE/OUTPATIENT ESTABLISHED MOD [facility] 30-39 MIN POST OP NEUS/NRES Self Xi Schrader PA-C [address] [place] [id number] Referral ID Status Reason Start Date Expiration Date Visits Re quested Visits Authorized [id number] Closed 12/20/2022 02/24/2023 1 1 Reason Comments Received Outside Medical Records promedi ca Reason Comments Follow Up Specialty Diagnoses / Procedures Referred By Contac t Referred To Contact Neurosurgery / NEUROSURGERY Diagnoses Follow-up exam Follow Up Procedures OFFICE/OUTPATIENT ESTABLISHED MOD [facility] 30-39 MIN EST NI PATIENT Self Xi Schrader PA-C [address] [place] [address] Referral ID Status Reason Start Date Expiration Date Visits Re quested Visits Authorized [id number] Closed 02/07/2023 02/07/2023 1 1 Reason Comments PT Certification Specialty Diagnoses / Procedures Referred By Contac t Referred To Contact Neurosurgery / NEUROSURGERY Diagnoses Lumbar adjacent segment disease with spondylolisthesis discuss imaging and BWC requirements Procedures PHYS/QHP TELEPHONE EVALUATION 5-10 MIN [place] [address] [place] [address] Referral ID Status Reason Start Date Expiration Date V isits Requested Visits Authorized [id number] Denied Patient Cleared - Admin/Chairm an/Director advise to proceed or did not respond 05/08/2023 08/06/2023 1 0 Reason Comments Imaging Disc Reason Comments Appointment Orders Reason Comments Results Reason Comments Back Pain BWC Reason Comments Back Pain Reason Comments Appointment Care Teams (unrecognized sec tion and content) Personnel Name: Blayne Isabel MD Address: [address] [place] [address] Telecom: Team Status: Active Member Role Status Dates [...] November 07, 2023 End: November 07, 2023 Beverage Steward Relationship Specialty Start Date End Date Blayne Isabel MD [address] [place] [address] PCP - General Family Medicine 04/11/19 Beverage Steward Relationship Specialty [place] [address] [place] [address] PCP - General Family Medicine 04/11/19 Beverage Steward Relationship Specialty [place] [address] [place] [address] PCP - General Family Medicine 04/11/19 Beverage Steward Relationship Specialty [place] [address] [place] [address] PCP - General Family Medicine 04/11/19 Team Status: Inactive Member Role Status Dates STEPH Sarkar Attending Provider Active Team Status: Inactive Member Role Status Dates PHYSICIAN NO FAMILY Primary Care Provider Active Gianni Nelson DO Attending Provider Active Team Status: Inactive Member Role Status Dates STEPH Sarkar Attending Provider Active PHYSICIAN NO FAMILY Primary Care Provider Active Beverage Steward Relationship Specialty Start Date End Date Blayne Isabel MD PCP - General Family Medicine 11/06/13 Beverage Steward Relationship Specialty Start Date End Date Blayne Isabel MD PCP - General Family Medicine 11/06/13 Beverage Steward Relationship Specialty Start Date End Date Blayne Isabel MD PCP - General Family Medicine 11/06/13 Beverage Steward Relationship Specialty Start Date End Date Blayne Isabel MD PCP - General Family Medicine 11/06/13 Beverage Steward Relationship Specialty Start Date End Date Blayne Isabel MD PCP - General Family Medicine 11/06/13 Beverage Steward Relationship Specialty Start Date End Date Blayne Isabel MD PCP - General Family Medicine 11/06/13 Beverage Steward Relationship Specialty Start Date End Date Blayne Isabel MD PCP - General Family Medicine 11/06/13 Beverage Steward Relationship Specialty Start Date End Date Blayne Isabel MD PCP - General Family Medicine 11/06/13 Beverage Steward Relationship Specialty Start Date End Date Blayne Isabel MD PCP - General Family Medicine 11/06/13 Beverage Steward Relationship Specialty Start Date End Date Blayne Isabel MD PCP - General Family Medicine 11/06/13 Beverage Steward Relationship Specialty Start Date End Date Blayne Isabel MD PCP - General Family Medicine 11/06/13 Beverage Steward Relationship Specialty Start Date End Date Blayne Isabel MD PCP - General Family Medicine 11/06/13 Beverage Steward Relationship Specialty Start Date End Date Blayne Isabel MD PCP - General Family Medicine 10/08/18 Beverage Steward Relationship Specialty Start Date End Date Blayne Isabel MD PCP - General Family Medicine 10/08/18 Beverage Steward Relationship Specialty Start Date End Date Blayne Isabel MD [address] [place] [address] PCP - General Family Medicine 10/08/18 Beverage Steward Relationship Specialty Start Date End Date Blayne Isabel MD [address] [place] [address] PCP - General Family Medicine 10/08/18 Beverage Steward Relationship Specialty Start Date End Date Blayne Isabel MD PCP - General Family Medicine 10/08/18 Beverage Steward Relationship Specialty Start Date End Date Blayne [...] Until Discontinued 1838 (Given - Provider: Milagros Reich RN) 925 (Given - Provider: Jenny Lentz, BRETT) ceFAZolin (ANCEF) 1,000 mg in sterile water [...] 2116 (Given - Provider: Giselle Painting RN) 842 (Given - Provider: Milagros Reich RN)2131 (Given - Provider: Batsheva Carias RN) 09 (Given - Provider: Jenny Lentz, BRETT)2099 (Due) famotidine (PEPCID) 20 mg in sodium [...] BRETT)2131 (Given - Provider: Batsheva Carias, RN) 100 [...] Patient/family refused)2130 (Not Given - Provider: Batsheva Carias RN - Reason: Patient/family refused) 0900 (Not Given - Provider: Jenny Lentz RN - Reason: Patient/family refused)1400 (Due)2099 (Due) [...] Carias RN) 1009 (Given - Provider: Jenny Lentz RN)2100 (Due) scopolamine (TRANSDERM-SCOP) transdermal patch 1 [...] Molly Williamson RN)1301 (NoRateChange - Provider: Yi Mena RN)1427 (Paused - Provider: Yi Mena RN - Comment: Switch to gravity)1428 (New Bag - Provider: Yi Mena RN)1503 (Anesthesia Volume Adjustment - Provider: Yi Mena RN) 0730 (Stopped - Provider: Jenny Lentz, BRETT) lactated ringers infusion (CANCELED) IntraVENous, at 125 mL/hr, CONTINUOUS, Starting on Sat05/24/21 at 1645, Post-op 1638 (New Bag - Provider: Milagros Reich RN)1933 (New Bag - Provider: Milagros Reich RN) 0315 (New Bag - Provider: Giselle Painting RN) 0730 (Stopped - Provider: Jenny Lentz, [...] PACU only 1545 (Given - Provider: Pricilla Vivar RN)1550 (Given - Provider: Pricilla Vivar RN) HYDROmorphone [...] RN) 0015 (Given - Provider: Giselle Painting, RN)0841 (Given - Provider: Milagros Reich, BRETT)2137 (Given - Provider: Batsheva Carias RN) midazolam [...] Sat05/24/21 at 1628, Until Discontinued, Nausea, Post-op 2125 (Given - Provider: Giselle Painting RN) 0409 [...] Painting RN)1148 (Given - Provider: Milagros Reich RN)1839 (Given - Provider: Milagros Reich RN) 0051 (Given - Provider: Alesha Shaikh, BRETT)0755 (Given - Provider: Jenny Lentz, RN)1348 (Given - Provider: Jenny Lentz, RN) promethazine (PHENERGAN) tablet 25 mg 25 mg, Oral, EVERY 6 HOURS PRN, Starting on Sat05/24/21 at 1507, Until Discontinued, Nausea 1652 (Given - Provider: Milagros Reich, BRETT) 0257 (Given - Provider: Alesha Shaikh RN) sodium chloride 0.9 % irrigation (COMPLETED) CONTINUOUS PRN, Starting on Sat05/24/21 at 1351, Intra-op 1351 (New Bag - Provider: Octavio Mcclellan, DO - Comment: 1000 ml. poured to back table, 1000 ml. for suction plywood scarfer tender.) sodium chloride flush 0.9 % injection 5-40 [...] or prosecute any alcohol or drug abuse patient.[facility] the event this information is protected by the Federal Confidentiality of Alcohol and Drug Abuse Patient Records regulations: The Federal rules restrict any use of the information to criminally investigate or prosecute any alcohol or drug abuse patient.[facility] the event this information is protected by the Federal Confidentiality of Alcohol and Drug Abuse Patient Records regulations: The Federal rules restrict any use of the information to criminally investigate or prosecute any alcohol or drug abuse patient.[facility] the event this information is protected by the Federal Confidentiality of Alcohol and Drug Abuse Patient Records regulations: The Federal rules restrict any use of the information to criminally investigate or prosecute any alcohol or drug abuse patient.[facility] the event this information is protected by the Federal Confidentiality of Alcohol and Drug Abuse Patient Records regulations: The Federal rules restrict any use of the information to criminally investigate or prosecute any alcohol or drug abuse patient.[facility] the event this information is protected by the Federal Confidentiality of Alcohol and Drug Abuse Patient Records regulations: The Federal rules restrict any use of the information to criminally investigate or prosecute any alcohol or drug abuse patient.[facility] the event this information is protected by the Federal Confidentiality of Alcohol and Drug Abuse Patient Records regulations: The Federal rules restrict any use of the information to criminally investigate or prosecute any alcohol or drug abuse patient.[facility] the event this information is protected by the Federal Confidentiality of Alcohol and Drug Abuse Patient Records regulations: The Federal rules restrict any use of the information to criminally investigate or prosecute any alcohol or drug abuse patient.[facility] the event this information is protected by the Federal Confidentiality of Alcohol and Drug Abuse Patient Records regulations: The Federal rules restrict any use of the information to criminally investigate or prosecute any alcohol or drug abuse patient.[facility] the event this information is protected by the Federal Confidentiality of Alcohol and Drug Abuse Patient Records regulations: The Federal rules restrict any use of the information to criminally investigate or prosecute any alcohol or drug abuse patient.[facility] the event this information is protected by the Federal Confidentiality of Alcohol and Drug Abuse Patient Records regulations: The Federal rules restrict any use of the information to criminally investigate or prosecute any alcohol or drug abuse patient.[facility] the event this information is protected by the Federal Confidentiality of Alcohol and Drug Abuse Patient Records regulations: The Federal rules restrict any use of the information to criminally investigate or prosecute any alcohol or drug abuse patient.[facility] the event this information is protected by the Federal Confidentiality of Alcohol and Drug Abuse Patient Records regulations: The Federal rules restrict any use of the information to criminally investigate or prosecute any alcohol or drug abuse patient.[facility] the event this information is protected by the Federal Confidentiality of Alcohol and Drug Abuse Patient Records regulations: The Federal rules restrict any use of the information to criminally investigate or prosecute any alcohol or drug abuse patient.[facility] the event this information is protected by the Federal Confidentiality of Alcohol and Drug Abuse Patient Records regulations: The Federal rules restrict any use of the information to criminally investigate or prosecute any alcohol or drug abuse patient.[facility] the event this information is protected by the Federal Confidentiality of Alcohol and Drug Abuse Patient Records regulations: The Federal rules restrict any use of the information to criminally investigate or prosecute any alcohol or drug abuse patient.[facility] the event this information is protected by the Federal Confidentiality of Alcohol and Drug Abuse Patient Records regulations: The Federal rules restrict any use of the information to criminally investigate or prosecute any alcohol or drug abuse patient.[facility] the event this information is protected by the Federal Confidentiality of Alcohol and Drug Abuse Patient Records regulations: The Federal rules restrict any use of the information to criminally investigate or prosecute any alcohol or drug abuse patient.[facility]In the event this information is protected by the Federal Confidentiality of Alcohol and Drug Abuse Patient Records regulations: The Federal rules restrict any use of the information to criminally investigate or prosecute any alcohol or drug abuse patient.[facility] FOR RECORDS PERTAINING TO PATIENTS WHO [...] BE BASED ON THE PRIMARY CLINICAL RECORDS. [facility] [employer] [facility]. provides no warranty or guarantee of the accuracy or completeness of information in this document.
== END 2024-11-14 14:25 | disposition home or self-care (01) ==
LOC: ER 22:45 → MS 23:27
PROVIDERS: Physician Assistant; Urology; Admitting Provider Internal Medicine; Emergency Provider Emergency Medicine; PCP Family Medicine; Visit Provider Internal Medicine
PROC: (CPT 918; principal; 2024-11-13 11:30)
DX: N20.0 Calculus of kidney (principal); I47.10 Supraventricular tachycardia, unspecified; J81.1 Chronic pulmonary edema; Z86.711 Personal history of pulmonary embolism; Z87.442 Personal history of urinary calculi; I12.9 Hypertensive chronic kidney disease with stage 1 through stage 4 chronic kidney disease, or unspecified chronic kidney disease; N18.30 Chronic kidney disease, stage 3 unspecified; Z79.899 Other long term (current) drug therapy; T81.89XA Other complications of procedures, not elsewhere classified, initial encounter; R09.02 Hypoxemia
CPT/HCPCS: 52356; 36415; 71045; 74176; 76000; 80048; 81001; 83880; 85025; 85027; 93005; 93306; 96365; 96375; 96376; 99285; G0378; J0696; J1171; J1805; J1885; J1938; J2250; J2270; J2405; J2704; J3010

== ENCOUNTER 2024-12-04 08:03 | Outpatient (OUT) | payer OTHER, SELFPAY ==
--- NOTE | 2024-12-04 08:06 | CT_ITS ---
[address] [address] Patient Name: SUKHDEEP SIMENTAL MRN: [id number] date: 1965 Sex: M Assigned Patient Location: CT Current Patient Location: LAB Accession/Order Number: [id number] Exam Date: 12/04/2024 08:16 Report Date: 12/04/2024 09:02 At the request of: ESTRADA SAUL Procedure: CT angio chest CT PULMONARY ANGIOGRAM WITH CONTRAST CLINICAL HISTORY: Shortness Of Breath. Prior history of pulmonary embolism. COMPARISON: 08/25/2021 TECHNIQUE: Spiral images were obtained through the chest following intravenous administration of 100 mL of Visipaque 270. Images were reviewed using both narrow and wide window settings. Sagittal, coronal and 3 D volume-rendered reconstructions were performed and reviewed. This CT exam was performed using one or more following dose reduction techniques: Automated exposure control, adjustment of the mA and/or kV according to patient size, or use of iterative reconstruction technique. FINDINGS: The heart is borderline prominent. There is coronary disease. There is no pericardial effusion. The ascending aorta is borderline dilated measuring 4.1 cm. This is similar to the prior. No dissection is seen. There is adequate opacification of the pulmonary arteries. No emboli are identified. No pathologic lymphadenopathy is seen. There is mild gynecomastia. Mild endplate spurring is visualized at the spine. Minor atelectasis and/or scarring is present. There is no focal consolidation, effusion or discrete soft tissue nodules. No pneumothorax is seen. Limited cuts through the upper abdomen show postoperative changes of bariatric surgery at the stomach. CT/CT angio chest IMPRESSION: NO CT EVIDENCE OF PULMONARY EMBOLISM. BORDERLINE CARDIOMEGALY AND AORTIC DILATATION. MINOR ATELECTASIS AND/OR SCARRING. NO OTHER ACUTE INTRATHORACIC FINDINGS. Impression dictated by: Erlinda Sadler M.D. 12/04/2024 9:02 AM Dictation Location: [place] [address] Electronically authenticated by: [id number] Y Date: 12/04/2024 09:02
--- OUTSIDE RECORDS SUMMARY | 2024-12-04 08:15 | XMS_ITS | CCD ---
Author Organization [facility] CliniSyor Care Team Providers Care Research And Development Director Name Role Phone Blayne Isabel Primary Care Provider SUZANNE DAVIES Attending Unavailable BLAYNE ISABEL Primary Care Unavailable ARSENIO BHATTI Referring Unavailable BLAYNE ISABEL Primary Care Unavailable ARSENIO BHATTI Referring Unavailable BLAYNE ISABEL Primary Care Unavailable ROSE SOTELO Attending Unavailable BLAYNE ISABEL Primary Care Unavailable BLAYNE ISABEL Consulting Unavailable Blayne Isabel Primary Care Provider Blayne Isabel Primary Care Provider Octavio Becker Attending Provider [phone] Blayne Isabel MD Primary Care Provider OCTAVIO [...] Estephanie Lowry Unavailable STEPH Lowry Attending Provider [phone] NO FAMILY, PHYSICIAN Primary Care Provider Unava [...] Unavailable Blayne Isabel MD Primary Care Provider [phone] [facility], THOMAS Attending Unavailable QUINCY THOMAS Admitting Unavailable HOY, BLAYNE M Primary Care Unavailable LULU OVIEDO Consulting UnavailBlayne Poole MD Primary Care Provider [phone] HOEdgar, BLAYNE M Primary Care Unavailable QUINCY, THOMAS Referring Unavailable MAITE GALLOWAY Referring Unavailable HOY, BLAYNE M Primary Care Unavailable HOY, BLAYNE M Primary Care Unavailable MAITE GALLOWAY Referring Unavailable Blayne Isabel MD Primary Care Provider [phone] AHSAN FLYNN Attending Unavailable HOY, BLAYNE M Referring Unavailable HOY, BLAYNE M Primary Care Unavailable AHSAN FLYNN Attending Unavailable HOY, BLAYNE M Referring Unavailable HOY, BLAYNE M Primary Care Unavailable AHSAN FLYNN Attending Unavailable HOY, BLAYNE M Referring Unavailable HOY, BLAYNE M Primary Care Unavailable Blayne Isabel MD Primary Care Provider [phone] PAYTON HELM Referring Unavailable PAYTON HELM Attending [...] Translations: [povidone iodine topical] Drug Allergy [facility] (11 sources) Povidone-Iodine; Translations: [povidone-iodine] Drug Allergy 9 [facility] (9 sources) soap; Translations: [soap] Allergy to substance 9 [facility] (14 sources) Chlorhexidine; Translations: [CHLORHEXIDINE] Drug Allergy 1 [facility] (14 sources) Iodine; Translations: [IODINE] Drug Allergy 9 [facility] Work Phone: (16 sources) Loratadine; Translations: [loratadine] Drug Allergy 2 rash hives [facility] (1 source) Chlorhexidine Drug Allergy [facility] (1 source) Adhesive bandage Drug allergy Eruption of skin (disorder) [facility] (1 source) Povidone-Iodine; Translations: [Betadine] Drug Allergy [facility] Repository Medications Current Medications Medication Drug [...] carlos th every 4 hours as needed. [id number] 200 actuat albuterol 0.09 mg/actuat metered dose [...] Comment on above: Take 1 capsule by [facility] two times a day. doxazosin 4 mg [...] Active Start: 01-05-2021 take 1 capsule by [facility] every week vitamin D (ERGOCALCIFEROL) 1.25 MG (88360 UT) CAPS capsule Indications: Vitamin D deficiency [...] 1 Start: 03-19-2022 take 1 tablet by [facility] twice daily FeroSul 325 mg oral [...] Repeat number: 1 take 1 tablet by [facility] every twenty-four hours Irbesartan 150 MG [...] Comment on above: Take 1 capsule by [facility] twice daily. 2 ml ondansetron 2 mg/ml [...] 07, 2023 12:00am take 1 capsule by [facility] once daily in the morning phentermine (ADIPEX-P) [...] Repeat number: 1 take 2 tablets by [facility] in the morning pioglitazone (ACTOS) 15 mg [...] Other fci (current) drug therapy; Translations: [OTH [facility] CURRENT DRUG THERAPY] Onset: 2 Episodic Other [...] Cecelia MURILLO MD Where: [facility] [address] [address]- You Need to Schedule the Following Appointments Follow Up with Cecelia MURILLO MD, URL When: Comments: as scheduled Where: [facility] [place] [address]- Medications What How Much When Instructions Unchanged [...] Sleep apnea (more content not included)... Normal [facility] Urology Office/Clinic Noteon 11-19-2024 Urology Office/Clinic [...] acquired) Seen in consult on 06/29/21 at [facility]. 11/14/21 - BUN 19.0. Crea 1.62. [...] Contact Information Cecelia MURILLO MD, URL [address] [place] [address]- Additional Instructions: as scheduled Patient Education Kidney Stones, [id number] Problem List/Past Medical History Ongoing Acute diarrhea [...] stent (0 (more content not included)... Normal [facility] Comment on above: Result Comment: Elec [...] Cecelia MURILLO MD Where: [facility] [address] [address]- You Need to Schedule the Following Appointments Follow Up with Kaykay MURILLO MDrick R, URL When: Where: [address] [place], [place] [id number]- Medications What How Much When Instructions Unchanged [...] obstructio (more content not included)... Normal [facility] Urology Office/Clinic Noteon 08-07-2024 Urology Office/Clinic Note Urology Office/Clinic Note Chief Complaint 18 month f/u with SÁNCHEZ and KUB HPI Staff 58 year old male patient here for follow up with KUB/SÁNCHEZ. KUB/SÁNCHEZ done 07/16/24 @ [facility]. Previous dx: renal mass, kidney stone, [...] acquired) Seen in consult on 06/29/21 at [facility]. 11/14/21 - BUN 19.0. Crea 1.62. [...] Information LIDIA JACOBS, Cecelia Jj, URL [address] [place] [id number]- Additional Instructions: 1 year w/ KUB and [...] BMI 40.0- (more content not included)... Normal [facility] Comment on above: Result Comment: Elec tronically Signed By: Cecelia MURILLO MD\.br\Date and Time Signed: 08/07/24 12:00 EDT\.br\Electronically Co-Signed By: Jacqueline Calero\.br\Date and Time Co-Signed: 08/07/24 11:53 EDT\.br\Electronically Co-Signed By: Jacqueline Calero\.br\Date and Time Co-Signed: 08/07/24 11:56 EDT\.br\Electronically Co-Signed By: Jacqueline Calero\.br\Date and Time Co-Signed: 08/07/24 11:57 EDT [facility] Patient Letter [facility] June 22, 2024 SUKHDEEP SIMENTAL [address] [place] [address] : 1965 Dear Mr. Sukhdeep Simental, You [...] any future cancellations. Sincerely, [facility] [place] [id number] [phone] Normal [facility] Follow-Upon 06-17-2024 Follow-Up [id number] Sukhdeep Simental F 1965 M Date Provider Department Center 06/17/2024 PAYTON GRIFFITH [facility] Family History Problem Relation Age of Onset Dementia Mother Esophageal cancer Father Alcohol abuse Father Family Status - Relation Status Age at Mother Alive Father Level of Service:18945 ME OFFICE/OUTPATIENT ESTABLISHED SF MDM 10 MIN Normal [facility] 36on 05-18-2024 36 Will need to see the patient as soon as possible repeat x-rays and blood test to further evaluate as he has had previous infections and has high risk for recurrent infections and 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 PT WILL COME IN TODAY Normal [facility] BASIC METABOLIC PANELon -2 Anion gap [Moles/Vol] 12 mmol/L Normal - [facility] Comment on above: Performed By: #### L [id number] #### [facility] ([facility]) [address] [place] [address] Calcium [Mass/Vol] 9.9 mg/dL Normal 8.6-10.3 [facility] Comment on above: Performed By: #### L [id number] #### [facility] [address] [place] [address] Chloride [Moles/Vol] 105 mmol/L Normal 98-107 [facility] Comment on above: Performed By: #### L [id number] #### [facility] ([facility]) [address] [place] [address] CO2 [Moles/Vol] 27 mmol/L Normal 21-[address] [facility] Comment on above: Performed By: #### L [id number] #### [facility] [address] [place] [address] Creatinine [Mass/Vol] 1.42 mg/dL High 0.70-1.30 [facility] Comment on above: Performed By: #### L [id number] #### [facility] ([facility]) [address] [place] [address] GLOMERULAR FILTRATION RATE ML/MIN/1.73 SQ M.PREDICTED 56.6 mL/min/1.73m*2 Low >60.0 [facility] Comment on above: Result Comment: The [facility]???s estimated glomerular filtration rate (eGFR) will [...] individuals. Performed By: #### L [id number] #### [facility] [address] [place] [address] Glucose [Mass/Vol] 102 mg/dL High 70-100 [facility] Comment on above: Performed By: #### L [id number] #### [facility] [address] [place] [address] Potassium [Moles/Vol] 4.4 mmol/L Normal 3.5-5.1 [facility] Comment on above: Performed By: #### L [id number] #### [facility] ([facility]) [address] [place] [address] Sodium [Moles/Vol] 140 mmol/L Normal 136-145 [facility] Comment on above: Performed By: #### L [id number] #### [facility] ([facility]) [address] [place] [address] Urea nitrogen [Mass/Vol] 23 mg/dL Normal 7-25 [facility] Comment on above: Performed By: #### L [id number] #### [facility] ([facility]) [address] [place] [address] UREA NITROGEN/CREATININE (MASS RATIO) IN SER/PLAS 16.2 Normal [facility] Comment on above: Performed By: #### L [id number] #### [facility] ([facility]) [address] [place] [address] C-REACTIVE PROTEINon 025 C REACTIVE PROTEIN (MG/L) IN SER/PLAS <5.4 Normal <=5.0 [facility] Comment on above: Result Comment: Test ing performed using a new methodology, turbidimetry. Normal ranges have been updated. Old normal range was <8 mg/L. Performed By: #### L [id number] #### [facility] ([facility]) [address] [place] [address] CBC WITH AUTO DIFFERENTIALon 05-18-2024 Basophils (Bld) [#/Vol] 0.06 10*3/uL Normal 0.00-0.20 [facility] Comment on above: Performed By: #### L [id number] #### [facility] ([facility]) [address] [place] [address] Basophils/100 WBC (Bld) 0.7 % Normal 0.0-1.0 [facility] Comment on above: Performed By: #### L [id number] #### [facility] ([facility]) [address] [place] [address] Eosinophils (Bld) [#/Vol] 0.15 10*3/uL Normal 0.00-0.50 [facility] Comment on above: Performed By: #### L [id number] #### [facility] ([facility]) [address] [place] [address] Eosinophils/100 WBC (Bld) 1.8 % Normal 0.0-6.0 [facility] Comment on above: Performed By: #### L [id number] #### [facility] ([facility]) [address] [place] [address] Erythrocyte distribution width (RBC) [Ratio] 11.9 % Normal 11.5-15.0 [facility] Comment on above: Performed By: #### L [id number] #### [facility] ([facility]) [address] [place] [address] ERYTHROCYTE MEAN CORPUSCULAR HEMOGLOBIN CONCENTRATION (G/DL) BY AUTOMATED 34.5 g/dL Normal 32.0-35.0 [facility] Comment on above: Performed By: #### L [id number] #### [facility] ([facility]) [address] [place] [address] Hematocrit (Bld) [Volume fraction] 47.8 % Normal 39.0-50.0 [facility] Comment on above: Performed By: #### L [id number] #### [facility] ([facility]) [address] [place] [address] Hemoglobin (Bld) [Mass/Vol] 16.5 g/dL Normal 13.0-17.0 [facility] Comment on above: Performed By: #### L [id number] #### [facility] ([facility]) [address] [place] [address] Immature granulocytes (Bld) [#/Vol] 0.03 10*3/uL Normal 0.00-0.20 [facility] Comment on above: Performed By: #### L [id number] #### [facility] ([facility]) [address] [place] [address] Immature granulocytes/100 WBC (Bld) 0.4 % Normal 0.0-1.0 [facility] Comment on above: Performed By: #### L [id number] #### [facility] ([facility]) [address] [place] [address] Lymphocytes (Bld) [#/Vol] 1.80 10*3/uL Normal 1.20-4.00 [facility] Comment on above: Performed By: #### L [id number] #### [facility] ([facility]) [address] [place] [address] Lymphocytes/100 WBC (Bld) 21.8 % Normal 20.0-45.0 [facility] Comment on above: Performed By: #### L [id number] #### [facility] ([facility]) [address] [place] [address] MCH (RBC) [Entitic mass] 31.5 pg Normal 27.0-33.0 [facility] Comment on above: Performed By: #### L [id number] #### [facility] ([facility]) [address] [place] [address] MCV (RBC) [Entitic vol] 91.4 fL Normal 82.0-98.0 [facility] Comment on above: Performed By: #### L [id number] #### [facility] ([facility]) [address] [place] [address] Monocytes (Bld) [#/Vol] 0.66 10*3/uL Normal 0.10-1.00 [facility] Comment on above: Performed By: #### L [id number] #### [facility] ([facility]) [address] [place] [address] Monocytes/100 WBC (Bld) 8.0 % Normal 5.0-12.0 [facility] Comment on above: Performed By: #### L [id number] #### [facility] ([facility]) [address] [place] [address] Neutrophils (Bld) [#/Vol] 5.56 10*3/uL Normal 1.60-7.60 [facility] Comment on above: Performed By: #### L [id number] #### [facility] ([facility]) [address] [place] [address] Neutrophils/100 WBC (Bld) 67.3 % Normal 40.0-72.0 [facility] Comment on above: Performed By: #### L [id number] #### [facility] ([facility]) [address] [place] [address] NRBC (PER 100 WBCS) BY AUTOMATED COUNT 0.0 % Normal 0 [facility] Comment on above: Performed By: #### L [id number] #### [facility] ([facility]) [address] [place] [address] PLATELETS (10*3/UL) IN BLOOD AUTOMATED COUNT 247 10*3/uL Normal 150-400 [facility] Comment on above: Performed By: #### L [id number] #### [facility] ([facility]) [address] [place] [address] RBC (Bld) [#/Vol] 5.23 10*6/uL Normal 4.20-5.70 [facility] Comment on above: Performed By: #### L [id number] #### [facility] ([facility]) [address] [place] [address] WBC (Bld) [#/Vol] 8.26 10*3/uL Normal 4.00-10.60 [facility] Comment on above: Performed By: #### L [id number] #### [facility] ([facility]) [address] [place] [address] Follow-Upon 05-18-2024 Follow-Up [id number] Sukhdeep Simental 1965 M Date Provider Department Center 05/18/2024 PAYTON GRIFFITH [facility] Family History Problem Relation Age of Onset Dementia Mother Esophageal cancer Father Alcohol abuse Father Family Status - Relation Status Age at Mother Alive Father Level of Service:50044 ME OFFICE/OUTPATIENT ESTABLISHED MOD MDM 30 MIN () Reason for Visit and Comments: Pain [136] - Swelling starts 2 months ago, started swimming about a month ago and it only made his knee worse Edema [[id number]] - Swelling starts 2 months ago, started swimming about a month ago and it only made his knee worse Normal [facility] Labon 05-18-2024 Lab [id number] Sukhdeep Simental 1965 M Date Provider Department Center 05/18/20244-[facility] MP LAB RESOURCE MP DRAW Medical Pavi Family History Problem Relation Age of Onset Dementia Mother Esophageal cancer Father Alcohol abuse Father Family Status - Relation Status Age at Mother Alive Father Normal [facility] SEDIMENTATION RATEon 025 SEDIMENTATION RATE, ERYTHROCYTE 5 mm/hr Normal <20 [facility] Comment on above: Performed By: #### L [id number] #### [facility] ([facility]) [address] [place] [address] 36on 05-15-2024 36 Patient feels like h is infection is back. Right knee swelling and pain but no fever. He was seen by Dr. Isabel and he put him on oral antibiotics and wanted Dr. Helm know in case he wants him to come in and be exam. Normal [facility] Erythrocyte distribution wid th Auto (RBC) [Ratio]on 10-29-2023 Erythrocyte distribution width (RBC) [Ratio] 11.5 % 11.0-15.0 [facility] Estimated glomerular filtrat ion rate (GFR) non- Americanon 10-29-2023 GFR/1.73 sq M.predicted among non-blacks MDRD (S/P/Bld) [Vol rate/Area] 51 mL/min/{1.73_m2} Low >=60 [facility] Hematocrit Auto (Bld) [Volum e fraction]on 10-29-2023 Hematocrit (Bld) [Volume fraction] 47.7 % 42.0-54.0 [facility] Hemoglobin [Mass/volume] in Bloodon 10-29-2023 Hemoglobin (Bld) [Mass/Vol] 16.8 g/dL 14.0-18.0 [facility] Laboratory - Chemistry and C hemistry - challengeon 10-29-2023 Albumin [Mass/Vol] 3.7 g/dL 3.4-5.0 [facility] Calcium [Mass/Vol] 9.0 mg/dL 8.5-10.1 [facility] Chloride [Moles/Vol] 103 mmol/L 98-107 [facility] CO2 [Moles/Vol] 26.8 mmol/L 21.0-32.0 [facility] Creatinine [Mass/Vol] 1.41 mg/dL High 0.70-1.30 [facility] GFR/1.73 sq M.predicted MDRD (S/P/Bld) [Vol rate/Area] mL/min/{1.73_m2} >=60 [facility] Glucose [Mass/Vol] 167 mg/dL High 74-106 [facility] Magnesium [Mass/Vol] 1.9 mg/dL 1.8-2.4 [facility] Potassium [Moles/Vol] 3.9 mmol/L 3.5-5.1 [facility] Sodium [Moles/Vol] 141 mmol/L 136-145 [facility] Urate [Mass/Vol] 7.9 mg/dL High 3.5-7.2 [facility] Urea nitrogen [Mass/Vol] 26.0 mg/dL High 7.0-18.0 [facility] Urea nitrogen/Creatinine [Mass ratio] 18.4 mg/mg [facility] Bilirubin Ql (U) Negative NEGATIVE [facility] Glucose (U) [Mass/Vol] Negative NEGATIVE [facility] Ketones Ql (U) Negative NEGATIVE [facility] pH (U) 6.0 [pH] 5.0-9.0 [facility] Specific gravity (U) [Rel density] 1.015 1.005-1.025 [facility] Urobilinogen Qn (U) 0.2 {Dahiana'U}/dL 0.2-1.0 [facility] Laboratory - Specimen inform ationon 10-29-2023 Appearance (U) CLEAR CLEAR [facility] Color (U) LT. YELLOW YELLOW [facility] Laboratory - Urinalysison Hyaline casts LM Ql (Urine sed) RARE [facility] Leukocyte esterase Test strip Ql (U) Negative NEGATIVE [facility] Mucus Ql (Urine sed) NONE SEEN NONE SEEN [facility] Nitrite Ql (U) Negative NEGATIVE [facility] Protein Ql (U) Negative NEG/TRACE [facility] Leukocytes [#/volume] correc romaine for nucleated erythrocytes in Blood by Automated counon 10-29-2023 WBC corrected for nucl RBC Auto (Bld) [#/Vol] 6.9 10 3/uL 4.0-11.0 [facility] MCH Auto (RBC) [Entitic mass ]on 10-29-2023 MCH (RBC) [Entitic mass] 32.2 pg 25.9-34.0 [facility] MCHC Auto (RBC) [Mass/Vol]on 10-29-2023 MCHC (RBC) [Mass/Vol] 35.2 g/dL 29.9-35.2 [facility] MCV Auto (RBC) [Entitic vol] on 10-29-2023 MCV (RBC) [Entitic vol] 91.6 fL 80.0-94.0 [facility] No Panel Informationon 10-28 25-Hydroxy Vitamin D Total 40.8 ng/mL [facility] Comment on above: <20 ng/mL Vit D defi cient20-<30 ng/mL Vit D utjonalxnjns37-076 ng/mL Vit D sufficient>100 ng/mL Potential Toxicity Parathyroid Hormone (Intact) 91 pg/mL Abnormal 15-65 [facility] Comment on above: Performed at: [facility] [address] [id number] Director: Logan Martinez PhD, Phone: [phone] Phosphorus Level 2.3 mg/dL Low 2.6-4.7 [facility] Urine Bacteria NONE SEEN #/HPF NONE SEEN [facility] Urine Occult Blood Negative NEGATIVE [facility] Urine Other Casts SEEN #/LPF Abnormal NONE SEEN [facility] Urine Random Creatinine 15.18 mg/dL Low 20.00-300.00 [facility] Urine Random Total Protein <6.0 mg/dL <=11.9 [facility] Urine RBC NONE SEEN #/HPF 0-2 [facility] Urine Squamous Epithelial Cells FEW #/LPF Abnormal NONE/RARE [facility] Urine WBC NONE SEEN #/HPF NONE SEEN [facility] Platelet mean volume Auto (B ld) [Entitic vol]on 10-29-2023 Platelet mean volume (Bld) [Entitic vol] 8.9 fL Low 9.5-13.5 [facility] Platelets Auto (Bld) [#/Vol] on 10-29-2023 Platelets (Bld) [#/Vol] 236 10 3/uL 150-450 [facility] RBC Auto (Bld) [#/Vol]on RBC (Bld) [#/Vol] 5.21 10 6/uL 4.70-6.10 [facility] Serum or plasma anion gap de terminationon 10-29-2023 Anion gap [Moles/Vol] 15.1 mmol/L [facility] CNPNon 10-07-2023 CNPN Telephone (NEADFV) SUKHDEEP SIMENTAL ([id number]) 1965 M Date Time Provider Department 10/07/23 [...] Encounter Status:Closed by ARIANNA [facility]MAD [facility] SUKHDEEP SIMENTAL ([id number]) 1965 M Date Time Provider Department 10/04/23 [facility]OMAS MATHEW [facility] During your visit today, we [...] Status:Closed by JUAN PABLO NOVA on 10/04/23 [facility] 07-30-2023 CNPN Telephone (NEADFV) SUKHDEEP SIMENTAL ([id number]) 1965 M Date Time Provider Department 07/30/23 [facility] During your visit today, we recorded the following information about you: Arianna Little 07/30/2023 11:51 AM Signed Pt phoned regarding upcoming visit 10/06 [facility] appt. Pt unable to manage virtual visit asking for telephone visit. Pt asking how far in advance to do X-Ray. Pt will have X-Ray done locally at [facility]. Please call and advise Pt phone # [phone] Ekaterina Rondon 07/30/2023 1:07 PM Signed Have sent XR Lumbar order to [facility] fax # [phone] as requested from patient. Riddhi Goss APRN.[facility] 07/30/2023 3:25 PM Signed Called Sukhdeep, no [...] Encounter Status:Closed by RIDDHI GOSS on 07/30/23 [facility] 07-23-2023 CNPN Telephone (NIQ) SUKHDEEP SIMENTAL ([id number]) 1965 M Date Time Provider Department 07/23/23 THOMAS MATHEW During your visit today, we recorded the following information about you: Brenda Alex 07/23/2023 9:38 AM Signed Received request from [employer] needing more info, in [employer] for review. Juan Pablo Nova RN 07/23/2023 [...] Status:Closed by JUAN PABLO NOVA on 07/26/23 [facility] 04-16-2023 CNPN Telephone (NIQ) SUKHDEEP SIMENTAL ([id number]) 1965 M Date Time Provider Department 04/16/23 THOMAS MATHEW During your visit today, we recorded the following information about you: Moriah Ferguson 04/16/2023 1:27 PM Signed Received imaging disc by mail from [facility]. Disc contains CT Lumbar spine done [...] Encounter Status:Closed by MORIAH FERGUSON on 06/06/23 [facility] 04-10-2023 HARIKA Telephone (NIQ) SUKHDEEP SIMENTAL ([id number]) 1965 M Date Time Provider Department 04/10/23 [...] Status:Closed by JUAN PABLO NOVA on 04/18/23 [facility] 04-09-2023 OLGAN Telephone (NIQ) SUKHDEEP SIMENTAL ([id number]) 1965 M Date Time Provider Department 04/09/23 THOMAS MATHEW During your visit today, we recorded the following information about you: Brenda Alex 04/09/2023 10:[address] Lumbar Spine Report from [facility], in epic to review. Brittany Rubio [...] Status:Closed by ROBSON LAZO on [facility]09/23 [facility] BANNER Telephone (NIQ) SUKHDEEP SIMENTAL ([id number]) 1965 M Date Time Provider Department 02/11/23 THOMAS MATHEW During your visit today, we recorded the following information about you: Moriah Ferguson 02/11/2023 1:36 PM Signed Received fax from [facility] requesting office notes, C-9, and [employer] 14. See fax scanned in patient's chart. Juan Pablo Nova RN 02/13/2023 3:14 PM Signed Information faxed to number requested. Faxed verification received. Robson De Jesus 03/06/2023 3:20 PM Signed Received updated notes from [employer] dated 03/05/23. Scanned into [employer]. Allergies As of Date: 02/11/2023 (No Known Allergies) Date Reviewed: 02/07/2023 Reviewed by: Brittany Ratliff - Fully Assessed Reason for Visit: [facility] (Worker's Comp) [4136] Prescriptions as of [...] Status:Closed by JUAN PABLO NOVA on 02/13/23 [facility] BANNER Telephone (NIQ) SUKHDEEP SIMENTAL ([id number]) 1965 M Date Time Provider Department 12/21/22 THOMAS MATHEW During your visit today, we recorded the following information about you: Moriah Ferguson 12/21/2022 9:29 AM Signed Patient called with complaints of [facility] not allowing him to sweet pickle maker the pain medication that was sent yesterday. [...] Encounter Status:Closed by XI SCHRADER on 12/21/22 [facility] 12-18-2022 CNPN Telephone (PODCCP) SUKHDEEP SIMENTAL ([id number]) 1965 [place] Date Time Provider Department 12/18/22 BLAYNE ISABEL PODCCP During your visit today, we recorded the following information about you: Amaury Carreon 12/18/2022 1:52 PM Signed PATIENT INFORMATION Record ID: [id number] Patient Name: [facility]: Islam Union: [facility]rological [facility] Attending: Thomas Mathew Center: [facility] INSTRUCTIONS SN to remind patient of next upcoming appointment date, time, location SN [facility] INFORMATION Medical/Nurse Industrial Locomotive Operator: Amaury Calderón 1. Your discharge instructions [...] Reason for Visit: Follow Up Phone Call [7383] Cmt: All Clear Prescriptions as of 12/18/2022 [...] Encounter Status:Closed by AMAURY CARREON on 12/18/22 [facility] 12-14-2022 BANNER Telephone (NIQ) SUKHDEEP SIMENTAL ([id number]) 1965 M Date Time Provider Department 12/14/22 THOMAS MATHEW [facility] During your visit today, we recorded the [...] via voice mail, as requested. Scanned into [employer]. Allergies As of Date: 12/14/2022 (No Known Allergies) Date Reviewed: 12/10/2022 Reviewed by: Yoli Guerin, RN - Fully Assessed Reason for Visit: FMLA Paperwork [4184] Prescriptions as of 12/17/2022 - docusate sodium [...] Status:Closed by ABBY HERNANDEZ on 12/17/22 Normal [facility] Basic metabolic 2000 panelon 12-11-2022 Anion gap [Moles/Vol] 8 mmol/L Low 9-18 [facility] Comment on above: Order Comment: Speci men Type: BLOOD SPECIMEN Ordering Facility: [facility] Address: [address] [place] [address] Performed By: #### 2 4321-2 #### [facility] CLIA [id number] [address] [place] [address] [place] Calcium [Mass/Vol] 8.7 mg/dL Normal 8.5-10.2 [facility] Comment on above: Order Comment: Speci men Type: BLOOD SPECIMEN Ordering Facility: [facility] Address: [address] [place] [address] Performed By: #### 2 4321-2 #### [facility] CLIA [id number] [address] [place] [address] [place] Chloride [Moles/Vol] 106 mmol/L High 97-105 [facility] Comment on above: Order Comment: Speci men Type: BLOOD SPECIMEN Ordering Facility: [facility] Address: [address] [place] [address] Performed By: #### 2 4321-2 #### [facility] CLIA [id number] [address] [place], [place] [address] [place] CO2 [Moles/Vol] 29 mmol/L Normal 22-30 [facility] Comment on above: Order Comment: Speci men Type: BLOOD SPECIMEN Ordering Facility: [facility] Address: [address] [place] [address] Performed By: #### 2 4321-2 #### [facility] CLIA [id number] [address] [place] [address] [place] Creatinine [Mass/Vol] 1.17 mg/dL Normal 0.73-1.22 [facility] Comment on above: Order Comment: Speci men Type: BLOOD SPECIMEN Ordering Facility: [facility] Address: [address] [place] [address] Performed By: #### 2 4321-2 #### [facility] CLIA [id number] [address] [place], [place] [address] [place] Creatinine and Glomerular filtration rate.predicted panel (S/P/Bld) 72 mL/min/1.73m??? Normal >=60 [facility] Comment on above: Order Comment: Shahrzad dumont Type: BLOOD SPECIMEN Ordering Facility: [facility] Address: [place] [address] Result Comment: Leah mated Glomerular Filtration Rate [...] GFR. Performed By: #### 2 4321-2 #### [facility] IA [id number] [address] [place] [address] [place] Glucose [Mass/Vol] 98 mg/dL Normal 74-99 [facility] Comment on above: Order Comment: Shahrzad dumont Type: BLOOD SPECIMEN Ordering Facility: [facility] Address: [place] [address] Result Comment: The [place] Diabetes Association (ADA) provides guidance for cutoff [...] Standards of Medical Care in Diabetes 2016, [place] [employer]. Diabetes Care. 2016.39(Suppl 1). Performed By: #### 2 4321-2 #### [facility] IA [id number] [address] [place], [place] [address] [place] Potassium [Moles/Vol] 4.8 mmol/L Normal 3.7-5.1 [facility] Comment on above: Order Comment: Speci men Type: BLOOD SPECIMEN Ordering Facility: [facility] Address: [address] [place] [address] Performed By: #### 2 4321-2 #### [facility] CLIA [id number] [address] [place] [address] [place] Sodium [Moles/Vol] 143 mmol/L Normal 136-144 [facility] Comment on above: Order Comment: Speci men Type: BLOOD SPECIMEN Ordering Facility: [facility] Address: [address] [place] [address] Performed By: #### 2 4321-2 #### [facility] CLIA [id number] [address] [place] [address] [place] Urea nitrogen [Mass/Vol] 13 mg/dL Normal 9-24 [facility] Comment on above: Order Comment: Speci men Type: BLOOD SPECIMEN Ordering Facility: [facility] Address: [address] [place] [address] Performed By: #### 2 4321-2 #### [facility] CLIA [id number] [address] [place] [address] OF ARELY CASE MANAGEMon 12-11-2022 CASE MANAGEM HNO ID: [id number] Author: Gloria Toro RN Service: ? Author Type: Registered Nurse Type: Care Mgt Progress Note Filed: 12/11/2022 3:26 PM Note Text: CARE MANAGEMENT PROGRESS NOTE SERVICE DATE: 12/11/2022 SERVICE TIME: 3:26 pm LOS: 4 days No further skilled PT / OT needed at [place]. SIGNATURE: Gloria Toro RN PATIENT NAME: Sukhdeep Simental DATE: December 11, 2022 TIME: 3:25 PM PAGER/CONTACT #: [phone] Normal [facility] CBC panel Auto (Bld)on 12-11 Erythrocyte distribution width (RBC) [Ratio] 12.5 % Normal 11.5-15.0 [facility] Comment on above: Order Comment: Speci men Type: BLOOD SPECIMEN Ordering Facility: [facility] Address: [address] [place] [address] Performed By: #### 5 8410-2 #### [facility] CLIA [id number] [address] [place] [address] [place] Hematocrit (Bld) [Volume fraction] 34.6 % Low 39.0-51.0 [facility] Comment on above: Order Comment: Speci men Type: BLOOD SPECIMEN Ordering Facility: [facility] Address: [address] [place] [address] Performed By: #### 5 8410-2 #### [facility] IA [id number] [address] [place] [address] [place] Hemoglobin (Bld) [Mass/Vol] 11.7 g/dL Low 13.0-17.0 [facility] Comment on above: Order Comment: Speci men Type: BLOOD SPECIMEN Ordering Facility: [facility] Address: [address] [place] [address] Performed By: #### 5 8410-2 #### [facility] IA [id number] [address] [place] [address] [place] MCH (RBC) [Entitic mass] 32.0 pg Normal 26.0-34.0 [facility] Comment on above: Order Comment: Speci men Type: BLOOD SPECIMEN Ordering Facility: [facility] Address: [address] [place] [address] Performed By: #### 5 8410-2 #### [facility] IA [id number] [address] [place] [address] [place] MCHC (RBC) [Mass/Vol] 33.8 g/dL Normal 30.5-36.0 [facility] Comment on above: Order Comment: Speci men Type: BLOOD SPECIMEN Ordering Facility: [facility] Address: [address] [place] [address] Performed By: #### 5 8410-2 #### [facility] CLIA [id number] [address] [place] [address] [place] MCV (RBC) [Entitic vol] 94.5 fL Normal 80.0-100.0 [facility] Comment on above: Order Comment: Speci men Type: BLOOD SPECIMEN Ordering Facility: [facility] Address: [address] [place] [address] Performed By: #### 5 8410-2 #### [facility] CLIA [id number] [address] [place] [address] [place] Nucleated RBC (Bld) [#/Vol] 10*3/uL Normal <0.01 [facility] Comment on above: Order Comment: Speci men Type: BLOOD SPECIMEN Ordering Facility: [facility] Address: [address] [place] [address] Performed By: #### 5 8410-2 #### [facility] CLIA [id number] [address] [place] [address] [place] Platelet mean volume (Bld) [Entitic vol] 9.4 fL Normal 9.0-12.7 [facility] Comment on above: Order Comment: Speci men Type: BLOOD SPECIMEN Ordering Facility: [facility] Address: [address] [place] [address] Performed By: #### 5 8410-2 #### [facility] CLIA [id number] [address] [place] [address] [place] Platelets (Bld) [#/Vol] 196 10*3/uL Normal 150-400 [facility] Comment on above: Order Comment: Speci men Type: BLOOD SPECIMEN Ordering Facility: [facility] Address: [address] [place] [address] Performed By: #### 5 8410-2 #### [facility] CLIA [id number] [address] [place] [address] [place] RBC (Bld) [#/Vol] 3.66 10*6/uL Low 4.20-6.00 [facility] Comment on above: Order Comment: Speci men Type: BLOOD SPECIMEN Ordering Facility: [facility] Address: [address] [place] [address] Performed By: #### 5 8410-2 #### [facility] CLIA [id number] [address] [place] [address] [place] WBC (Bld) [#/Vol] 9.04 10*3/uL Normal 3.70-11.00 [facility] Comment on above: Order Comment: Shahrzad dumont Type: BLOOD SPECIMEN Ordering Facility: [facility] Address: [address] [place] [id number] Performed By: #### 5 8410-2 #### [facility] CLIA [id number] [address] [place] [address] [place] CNDSon 12-11-2022 CNDS HNO ID: [id number] Author: Brittany Rubio PA-C Service: Neurosurgery Author Type: Physician Industrial Locomotive Operator Type: Discharge Summary Filed: 12/11/2022 10:38 [...] you become constipated, you may use any tzce-lik-vixeeoz treatment such as Milk of Magnesia, Sennakot, Prune Juice, Suppositories, etc. in addition to the stool softener/fiber supplement No alcohol or driving while on pain medication Use the dispensed medication (see prescription) You should use an bqnl-lpo-utvprho stool softener (Docusate sodium) and/or a fiber [...] call for appointment?: (more content not included)... 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 [facility] NURSING PROGon 12-11-2022 NURSING PROG HNO ID: [id number] Author: Erlinda Bui RN Service: Nursing Author [...] information. Patient verbalizing understanding of instructions. Normal [facility] Basic metabolic 2000 panelon 12-10-2022 Anion gap [Moles/Vol] 7 mmol/L Low - [facility] Comment on above: Order Comment: Speci men Type: BLOOD SPECIMEN Ordering Facility: [facility] Address: [address] [place] [address] Performed By: #### 2 4321-2 #### [facility] CLIA [id number] [address] [place] [address] [place] Calcium [Mass/Vol] 8.3 mg/dL Low 8.5-10.2 [facility] Comment on above: Order Comment: Speci men Type: BLOOD SPECIMEN Ordering Facility: [facility] Address: [address] [place] [address] Performed By: #### 2 4321-2 #### [facility] CLIA [id number] [address] [place] [address] [place] Chloride [Moles/Vol] 107 mmol/L High 97-105 [facility] Comment on above: Order Comment: Speci men Type: BLOOD SPECIMEN Ordering Facility: [facility] Address: [address] [place] [address] Performed By: #### 2 4321-2 #### [facility] CLIA [id number] [address] [place] [id number] [place] CO2 [Moles/Vol] 26 mmol/L Normal 22-30 [facility] Comment on above: Order Comment: Speci men Type: BLOOD SPECIMEN Ordering Facility: [facility] Address: [address] [place] [address] Performed By: #### 2 4321-2 #### [facility] CLIA [id number] [address] [place] [address] [place] Creatinine [Mass/Vol] 1.16 mg/dL Normal 0.73-1.22 [facility] Comment on above: Order Comment: Shahrzad dumont Type: BLOOD SPECIMEN Ordering Facility: [facility] Address: [address] [place] [address] Performed By: #### 2 4321-2 #### [facility] CLIA [id number] [address] [place] [address] [place] Creatinine and Glomerular filtration rate.predicted panel (S/P/Bld) 73 mL/min/1.73m??? Normal >=60 [facility] Comment on above: Order Comment: Shahrzad dumont Type: BLOOD SPECIMEN Ordering Facility: [facility] Address: [address] [place] [address] Result Comment: Leah mated Glomerular Filtration Rate [...] GFR. Performed By: #### 2 4321-2 #### [facility] CLIA [id number] [address] [place] [address] [place] Glucose [Mass/Vol] 129 mg/dL High 74-99 [facility] Comment on above: Order Comment: Shahrzad dumont Type: BLOOD SPECIMEN Ordering Facility: [facility] Address: [address] [place] [address] Result Comment: The [place] Diabetes Association (ADA) provides guidance for cutoff [...] Standards of Medical Care in Diabetes 2016, [place] [employer]. Diabetes Care. 2016.39(Suppl 1). Performed By: #### 2 4321-2 #### [facility] CLIA [id number] [address] [place] [address] [place] Potassium [Moles/Vol] 4.3 mmol/L Normal 3.7-5.1 [facility] Comment on above: Order Comment: Speci men Type: BLOOD SPECIMEN Ordering Facility: [facility] Address: [address] [place] [address] Performed By: #### 2 4321-2 #### [facility] CLIA [id number] [address] [place] [address] [place] Sodium [Moles/Vol] 140 mmol/L Normal 136-144 [facility] Comment on above: Order Comment: Shahrzad dumont Type: BLOOD SPECIMEN Ordering Facility: [facility] Address: [address] [place] [address] Performed By: #### 2 4321-2 #### [facility] CLIA [id number] [address] [place] [address] [place] Urea nitrogen [Mass/Vol] 16 mg/dL Normal 9-24 [facility] Comment on above: Order Comment: Toneyi tim Type: BLOOD SPECIMEN Ordering Facility: [facility] Address: [address] [place] [address] Performed By: #### 2 4321-2 #### [facility] CLIA [id number] [address] [place] [address] [place] CBC panel Auto (Bld)on 12-10 Erythrocyte distribution width (RBC) [Ratio] 12.6 % Normal 11.5-15.0 [facility] Comment on above: Order Comment: Toneyi men Type: BLOOD SPECIMEN Ordering Facility: [facility] Address: [address] [place] [address] Performed By: #### 5 8410-2 #### [facility] CLIA [id number] [address] [place] [address] [place] Hematocrit (Bld) [Volume fraction] 32.7 % Low 39.0-51.0 [facility] Comment on above: Order Comment: Speci men Type: BLOOD SPECIMEN Ordering Facility: [facility] Address: [address] [place] [address] Performed By: #### 5 8410-2 #### [facility] CLIA [id number] [address] [place] [address] [place] Hemoglobin (Bld) [Mass/Vol] 10.9 g/dL Low 13.0-17.0 [facility] Comment on above: Order Comment: Speci men Type: BLOOD SPECIMEN Ordering Facility: [facility] Address: [address] [place] [address] Performed By: #### 5 8410-2 #### [facility] CLIA [id number] [address] [place] [address] [place] MCH (RBC) [Entitic mass] 31.5 pg Normal 26.0-34.0 [facility] Comment on above: Order Comment: Speci men Type: BLOOD SPECIMEN Ordering Facility: [facility] Address: [address] [place] [address] Performed By: #### 5 8410-2 #### [facility] CLIA [id number] [address] [place] [address] [place] MCHC (RBC) [Mass/Vol] 33.3 g/dL Normal 30.5-36.0 [facility] Comment on above: Order Comment: Speci men Type: BLOOD SPECIMEN Ordering Facility: [facility] Address: [address] [place] [address] Performed By: #### 5 8410-2 #### [facility] CLIA [id number] [address] [place] [address] [place] MCV (RBC) [Entitic vol] 94.5 fL Normal 80.0-100.0 [facility] Comment on above: Order Comment: Speci men Type: BLOOD SPECIMEN Ordering Facility: [facility] Address: [address] [place] [address] Performed By: #### 5 8410-2 #### [facility] CLIA [id number] [address] [place], [place] [address] [place] Nucleated RBC (Bld) [#/Vol] 10*3/uL Normal <0.01 [facility] Comment on above: Order Comment: Speci men Type: BLOOD SPECIMEN Ordering Facility: [facility] Address: [address] [place] [address] Performed By: #### 5 8410-2 #### [facility] CLIA [id number] [address] [place] [address] [place] Platelet mean volume (Bld) [Entitic vol] 9.6 fL Normal 9.0-12.7 [facility] Comment on above: Order Comment: Speci men Type: BLOOD SPECIMEN Ordering Facility: [facility] Address: [address] [place] [address] Performed By: #### 5 8410-2 #### [facility] CLIA [id number] [address] [place] [address] [place] Platelets (Bld) [#/Vol] 157 10*3/uL Normal 150-400 [facility] Comment on above: Order Comment: Speci men Type: BLOOD SPECIMEN Ordering Facility: [facility] Address: [address] [place] [address] Performed By: #### 5 8410-2 #### [facility] CLIA [id number] [address] [place] [address] [place] RBC (Bld) [#/Vol] 3.46 10*6/uL Low 4.20-6.00 [facility] Comment on above: Order Comment: Speci men Type: BLOOD SPECIMEN Ordering Facility: [facility] Address: [address] [place] [address] Performed By: #### 5 8410-2 #### [facility] CLIA [id number] [address] [place] [address] [place] WBC (Bld) [#/Vol] 8.16 10*3/uL Normal 3.70-11.00 [facility] Comment on above: Order Comment: Speci men Type: BLOOD SPECIMEN Ordering Facility: [facility] Address: [address] [place] [address] Performed By: #### 5 8410-2 #### [facility] CLIA [id number] [address] [place], [place] [address] [facility] THERAPY NTon 12-10-2022 THERAPY NT HNO ID: [id number] Author: Odilon Madrid PT Service: Physical Therapy Author Type: Physical Therapist Type: Therapy (PT/OT/Speech/Resp) Filed: 12/10/2022 11:20 AM Note Text: PHYSICAL THERAPY MISSED VISIT SERVICE DATE: 12/10/2022 SERVICE TIME: 1109 to 1111 ROOM: [place] [id number] Patient not seen due to Refused Treatment. Pt reported pain levels are too high to attempt therapy. Will f/u as schedule allows and pain improves. SIGNATURE: Odilon Madrid PT PATIENT NAME: Sukhdeep Simental DATE: December 10, 2022 TIME: 11:20 AM [facility] ALLIED HEALTHon 12-09-2022 ALLIED HEALTH HNO ID: [id number] Author: Akila Huitron RT(R) Service: Radiology Author [...] RT Jose(R) December 09, 2022 2:01 PM [facility] Basic metabolic 2000 panelon 12-09-2022 Anion gap [Moles/Vol] 6 mmol/L Low -18 [facility] Comment on above: Order Comment: Speci men Type: BLOOD SPECIMEN Ordering Facility: [facility] Address: [address] [place] [address] Performed By: #### 2 4321-2 #### [facility] CLIA [id number] [address] [place], [place] [address] [place] Calcium [Mass/Vol] 8.5 mg/dL Normal 8.5-10.2 [facility] Comment on above: Order Comment: Speci men Type: BLOOD SPECIMEN Ordering Facility: [facility] Address: [address] [place] [address] Performed By: #### 2 4321-2 #### [facility] CLIA [id number] [address] [place] [address] [place] Chloride [Moles/Vol] 106 mmol/L High 97-105 [facility] Comment on above: Order Comment: Speci men Type: BLOOD SPECIMEN Ordering Facility: [facility] Address: [address] [place] [address] Performed By: #### 2 4321-2 #### [facility] CLIA [id number] [address] [place] [address] [place] CO2 [Moles/Vol] 30 mmol/L Normal 22-30 [facility] Comment on above: Order Comment: Speci men Type: BLOOD SPECIMEN Ordering Facility: [facility] Address: [address] [place] [address] Performed By: #### 2 4321-2 #### [facility] CLIA [id number] [address] [place] [address] [place] Creatinine [Mass/Vol] 1.34 mg/dL High 0.73-1.22 [facility] Comment on above: Order Comment: Speci men Type: BLOOD SPECIMEN Ordering Facility: [facility] Address: [address] [place] [address] Performed By: #### 2 4321-2 #### [facility] CLIA [id number] [address] [place] [address] [place] Creatinine and Glomerular filtration rate.predicted panel (S/P/Bld) 61 mL/min/1.73m??? Normal >=60 [facility] Comment on above: Order Comment: Shahrzad dumont Type: BLOOD SPECIMEN Ordering Facility: [facility] Address: [address] [place] [address] Result Comment: Leah mated Glomerular Filtration Rate [...] GFR. Performed By: #### 2 4321-2 #### [facility] CLIA [id number] [address] [place] [address] [place] Glucose [Mass/Vol] 105 mg/dL High 74-99 [facility] Comment on above: Order Comment: Shahrzad dumont Type: BLOOD SPECIMEN Ordering Facility: [facility] Address: [address] [place] [address] Result Comment: The [place] [employer] (ADA) provides guidance for cutoff [...] Standards of Medical Care in Diabetes 2016, [place] [employer]. Diabetes Care. 2016.39(Suppl 1). Performed By: #### 2 4321-2 #### [facility] CLIA [id number] [address] [place] [address] [place] Potassium [Moles/Vol] 3.9 mmol/L Normal 3.7-5.1 [facility] Comment on above: Order Comment: Shahrzad dumont Type: BLOOD SPECIMEN Ordering Facility: [facility] Address: [address] [place] [address] Performed By: #### 2 4321-2 #### [facility] CLIA [id number] [address] [place] [address] [place] Sodium [Moles/Vol] 142 mmol/L Normal 136-144 [facility] Comment on above: Order Comment: Speci men Type: BLOOD SPECIMEN Ordering Facility: [facility] Address: [address] [place] [address] Performed By: #### 2 4321-2 #### [facility] IA [id number] [address] [place] [address] [place] Urea nitrogen [Mass/Vol] 18 mg/dL Normal 9-24 [facility] Comment on above: Order Comment: Speci men Type: BLOOD SPECIMEN Ordering Facility: [facility] Address: [address] [place] [address] Performed By: #### 2 4321-2 #### [facility] IA [id number] [address] [place] [address] [place] CBC panel Auto (Bld)on 12-09 Erythrocyte distribution width (RBC) [Ratio] 12.7 % Normal 11.5-15.0 [facility] Comment on above: Order Comment: Speci men Type: BLOOD SPECIMEN Ordering Facility: [facility] Address: [address] [place] [address] Performed By: #### 5 8410-2 #### [facility] IA [id number] [address] [place] [address] [place] Hematocrit (Bld) [Volume fraction] 34.1 % Low 39.0-51.0 [facility] Comment on above: Order Comment: Speci men Type: BLOOD SPECIMEN Ordering Facility: [facility] Address: [address] [place] [address] Performed By: #### 5 8410-2 #### [facility] IA [id number] [address] [place] [address] [place] Hemoglobin (Bld) [Mass/Vol] 11.6 g/dL Low 13.0-17.0 [facility] Comment on above: Order Comment: Speci men Type: BLOOD SPECIMEN Ordering Facility: [facility] Address: [address] [place] [address] Performed By: #### 5 8410-2 #### [facility] CLIA [id number] [address] [place] [address] [place] MCH (RBC) [Entitic mass] 32.3 pg Normal 26.0-34.0 [facility] Comment on above: Order Comment: Speci men Type: BLOOD SPECIMEN Ordering Facility: [facility] Address: [address] [place] [address] Performed By: #### 5 8410-2 #### [facility] IA [id number] [address] [place] [address] [place] MCHC (RBC) [Mass/Vol] 34.0 g/dL Normal 30.5-36.0 [facility] Comment on above: Order Comment: Speci men Type: BLOOD SPECIMEN Ordering Facility: [facility] Address: [address] [place] [address] Performed By: #### 5 8410-2 #### [facility] [place] [id number] [address] [place] [address] [place] MCV (RBC) [Entitic vol] 95.0 fL Normal 80.0-100.0 [facility] Comment on above: Order Comment: Speci men Type: BLOOD SPECIMEN Ordering Facility: [facility] Address: [address] [place] [address] Performed By: #### 5 8410-2 #### [facility] IA [id number] [address] [place] [address] [place] Nucleated RBC (Bld) [#/Vol] 10*3/uL Normal <0.01 [facility] Comment on above: Order Comment: Speci men Type: BLOOD SPECIMEN Ordering Facility: [facility] Address: [address] [place] [address] Performed By: #### 5 8410-2 #### [facility] [place] [id number] [address] [place] [address] [place] Platelet mean volume (Bld) [Entitic vol] 9.6 fL Normal 9.0-12.7 [facility] Comment on above: Order Comment: Speci men Type: BLOOD SPECIMEN Ordering Facility: [facility] Address: [address] [place] [address] Performed By: #### 5 8410-2 #### [facility] CLIA [id number] [address] [place], [place] [address] [place] Platelets (Bld) [#/Vol] 159 10*3/uL Normal 150-400 [facility] Comment on above: Order Comment: Speci men Type: BLOOD SPECIMEN Ordering Facility: [facility] Address: [address] [place] [address] Performed By: #### 5 8410-2 #### [facility] CLIA [id number] [address] [place], [place] [address] [place] RBC (Bld) [#/Vol] 3.59 10*6/uL Low 4.20-6.00 [facility] Comment on above: Order Comment: Speci men Type: BLOOD SPECIMEN Ordering Facility: [facility] Address: [address] [place] [address] Performed By: #### 5 8410-2 #### [facility] CLIA [id number] [address] [place], [place] [address] [place] WBC (Bld) [#/Vol] 8.72 10*3/uL Normal 3.70-11.00 [facility] Comment on above: Order Comment: Speci men Type: BLOOD SPECIMEN Ordering Facility: [facility] Address: [address] [place] [address] Performed By: #### 5 8410-2 #### [facility] IA [id number] [address] [place], [place] [address] [place] NURSING PROGon 12-09-2022 NURSING PROG HNO ID: [id number] Author: Abdias Pemberton RN Service: Nursing Author Type: Registered Nurse Type: Nursing Progress Note Filed: 12/09/2022 7:21 PM Note Text: 12/09/2022 0826: hydromorphone MAGAZINE JOURNALIST rate varied. Patient rating pain 8/10 at this time stating oh, its much better than yesterday . 0931: Patient working with PT at this time 1035: Patient resting/sleeping comfortably in bed at this time. 1200: fentaNYL MAGAZINE JOURNALIST ordered. 1345: Patient ambulating in the hallway with nursing staff and . 1402: Patient at radiology for post-op XR 1406: Hydromorphone MAGAZINE JOURNALIST discontinued. While discontinuing the hydromorphone MAGAZINE JOURNALIST, patient made several comments about unused hydromorphone, I can take that medication off your hands. Patient educated that the medication will be properly wasted per protocol. 1407: fentaNYL MAGAZINE JOURNALIST started and Hydromorphone properly wasted per protocol. [...] Can't you increase my setting on the MAGAZINE JOURNALIST because I had better pain relief with the Dilaudid pump because I could press the button more frequent? Can you increase the pump settings? [facility] THERAPY NTon 12-09-2022 THERAPY NT HNO ID: [id number] Author: Abdias Crooks OT/L Service: Occupational Therapy Author Type: Occupational Therapist Type: Therapy (PT/OT/Speech/Resp) Filed: 12/09/2022 3:30 PM Note Text: Occupational Therapy Evaluation SERVICE DATE: 12/09/2022 SERVICE TIME: 1438 to 1502 ROOM: [address]- Total Joint Replacement Discharge Readiness: Cleared [...] slower than expec (more content not included)... [facility] THERAPY NT HNO ID: [id number] Author: Hannah Mota PT, DPT Service: Physical Therapy Author Type: Physical Therapist Type: Therapy (PT/OT/Speech/Resp) Filed: 12/09/2022 10:06 AM Note Text: Physical Therapy Treatment SERVICE DATE: 12/09/2022 SERVICE TIME: 930 to 954 ROOM: [id number]- Total Joint Replacement Discharge Readiness: Cleared from Physical Therapy Recommended Discharge Disposition: Home Anticipated Discharge Needs: Physical Assist at Home Physical Assist at Home for: Cleaning, Laundry, Meals, Stairs, Safety Recommended Discharge Equipment: No equipment needs anticipated PT 6 Clicks Score: 24 Pt agreeable to participate. Reports slight improvement in pain compared to yesterday but relies highly on MAGAZINE JOURNALIST. Pt able to ambulate around unit with [...] Difficulty walking-musculoskeleta l Interventions Provided: Therapeutic Activity (89036), Gait Training (09434) Therapeutic Activity (85667) Treatment Minutes: 10 $ Therapeutic Activity (07766) Billed Units: 1 unit Gait Training (74024) Treatment Minutes: 14 $ Gait Training (98899) Billed Units: 1 unit Training AND Education [...] for this therapy (more content not included)... [facility] XR LUMBAR 2V AP/LATon 2022 [...] IMPRESSION: Postoperative and degenerative changes as described. Manager Ship: PSCB Transcribe Date/Time: Dec 09 2022 3:39P Dictated by : DONNY WOO DO This examination was interpreted and the report reviewed and electronically signed by: DONNY WOO DO on Dec 09 2022 3:42PM EST [id number] Normal [facility] Basic metabolic 2000 panelon 12-08-2022 Anion gap [Moles/Vol] 7 mmol/L Low 9-18 [facility] Comment on above: Order Comment: Speci men Type: BLOOD SPECIMEN Ordering Facility: [facility] Address: [address] [place] [address] Performed By: #### 2 4321-2 #### [facility] CLIA [id number] [address] [place] [address] [place] Calcium [Mass/Vol] 8.2 mg/dL Low 8.5-10.2 [facility] Comment on above: Order Comment: Speci men Type: BLOOD SPECIMEN Ordering Facility: [facility] Address: [address] [place] [address] Performed By: #### 2 4321-2 #### [facility] CLIA [id number] [address] [place] [address] [place] Chloride [Moles/Vol] 106 mmol/L High 97-105 [facility] Comment on above: Order Comment: Speci men Type: BLOOD SPECIMEN Ordering Facility: [facility] Address: [address] [place] [address] Performed By: #### 2 4321-2 #### [facility] CLIA [id number] [address] [place] [address] [place] CO2 [Moles/Vol] 28 mmol/L Normal 22-30 [facility] Comment on above: Order Comment: Speci men Type: BLOOD SPECIMEN Ordering Facility: [facility] Address: [address] [place] [address] Performed By: #### 2 4321-2 #### [facility] CLIA [id number] [address] [place] [address] [place] Creatinine [Mass/Vol] 1.35 mg/dL High 0.73-1.22 [facility] Comment on above: Order Comment: Shahrzad dumont Type: BLOOD SPECIMEN Ordering Facility: [facility] Address: [address] [place] [address] Performed By: #### 2 4321-2 #### [facility] IA [id number] [address] [place], [place] [address] [place] Creatinine and Glomerular filtration rate.predicted panel (S/P/Bld) 60 mL/min/1.73m??? Normal >=60 [facility] Comment on above: Order Comment: Shahrzad dumont Type: BLOOD SPECIMEN Ordering Facility: [facility] Address: [address] [place] [address] Result Comment: Leah mated Glomerular Filtration Rate [...] GFR. Performed By: #### 2 4321-2 #### [facility] IA [id number] [address] [place], [place] [address] [place] Glucose [Mass/Vol] 139 mg/dL High 74-99 [facility] Comment on above: Order Comment: Shahrzad dumont Type: BLOOD SPECIMEN Ordering Facility: [facility] Address: [address] [place] [address] Result Comment: The [place] [employer] (ADA) provides guidance for cutoff [...] Standards of Medical Care in Diabetes 2016, [place] [employer]. Diabetes Care. 2016.39(Suppl 1). Performed By: #### 2 4321-2 #### [facility] CLIA [id number] [address] [place] [address] [place] Potassium [Moles/Vol] 3.7 mmol/L Normal 3.7-5.1 [facility] Comment on above: Order Comment: Speci men Type: BLOOD SPECIMEN Ordering Facility: [facility] Address: [address] [place] [address] Performed By: #### 2 4321-2 #### [facility] CLIA [id number] [address] [place], [place] [address] [place] Sodium [Moles/Vol] 141 mmol/L Normal 136-144 [facility] Comment on above: Order Comment: Shahrzad dumont Type: BLOOD SPECIMEN Ordering Facility: [facility] Address: [address] [place] [address] Performed By: #### 2 4321-2 #### [facility] CLIA [id number] [address] [place] [address] [place] Urea nitrogen [Mass/Vol] 23 mg/dL Normal 9-24 [facility] Comment on above: Order Comment: Shahrzad dumont Type: BLOOD SPECIMEN Ordering Facility: [facility] Address: [address] [place] [address] Performed By: #### 2 4321-2 #### [facility] CLIA [id number] [address] [place], [place] [address] [place] CASE MGT INIT ASSESon 2022 CASE MGT INIT ASSES HNO ID: [id number] Author: Gloria Toro RN Service: ? Author Type: Registered Nurse Type: Care Mgt Initial Assessment Filed: 12/08/2022 8:48 AM Note Text: CARE MANAGEMENT: ASSESSMENT AND DISCHARGE PLAN SERVICE DATE: December 08, 2022 SERVICE TIME: 8:46 am PCP: Blayne Isabel MD Primary Contact: Extended Emergency Contact Information Primary Emergency Contact: Darryl Simental Address: [address] [place] [address] [place] [address] [place] Mobile Relation: Spouse [...] to go home, General wellness, Less pain [place] Explained: [place] Given: No Reason Not Given: [...] further skilled PT / OT needed at [place]. CM Department will continue to follow until [place]. SIGNATURE: Gloria Toro RN PATIENT NAME: Sukhdeep Simental DATE: December 08, 2022 TIME: 8:46 AM CONTACT #: [phone] Normal [facility] CBC panel Auto (Bld)on 12-08 Erythrocyte distribution width (RBC) [Ratio] 12.8 % Normal 11.5-15.0 [facility] Comment on above: Order Comment: Speci men Type: BLOOD SPECIMEN Ordering Facility: [facility] Address: [address] [place] [address] Performed By: #### 5 8410-2 #### [facility] CLIA [id number] [address] Hematocrit (Bld) [Volume fraction] 34.8 % Low 39.0-51.0 [facility] Comment on above: Order Comment: Speci men Type: BLOOD SPECIMEN Ordering Facility: [facility] Address: [address] [place] [address] Performed By: #### 5 8410-2 #### [facility] IA [id number] [address] [place] [address] [place] Hemoglobin (Bld) [Mass/Vol] 11.7 g/dL Low 13.0-17.0 [facility] Comment on above: Order Comment: Speci men Type: BLOOD SPECIMEN Ordering Facility: [facility] Address: [address] [place] [address] Performed By: #### 5 8410-2 #### [facility] IA [id number] [address] [place] [address] [place] MCH (RBC) [Entitic mass] 31.8 pg Normal 26.0-34.0 [facility] Comment on above: Order Comment: Speci men Type: BLOOD SPECIMEN Ordering Facility: [facility] Address: [address] [place] [address] Performed By: #### 5 8410-2 #### [facility] IA [id number] [address] [place] [address] [place] MCHC (RBC) [Mass/Vol] 33.6 g/dL Normal 30.5-36.0 [facility] Comment on above: Order Comment: Speci men Type: BLOOD SPECIMEN Ordering Facility: [facility] Address: [address] [place] [address] Performed By: #### 5 8410-2 #### [facility] IA [id number] [address] [place] [address] [place] MCV (RBC) [Entitic vol] 94.6 fL Normal 80.0-100.0 [facility] Comment on above: Order Comment: Speci men Type: BLOOD SPECIMEN Ordering Facility: [facility] Address: [address] [place] [address] Performed By: #### 5 8410-2 #### [facility] CLIA [id number] [address] [place] [address] [place] Nucleated RBC (Bld) [#/Vol] 10*3/uL Normal <0.01 [facility] Comment on above: Order Comment: Speci men Type: BLOOD SPECIMEN Ordering Facility: [facility] Address: [address] [place] [address] Performed By: #### 5 8410-2 #### [facility] CLIA [id number] [address] [place] [address] [place] Platelet mean volume (Bld) [Entitic vol] 9.4 fL Normal 9.0-12.7 [facility] Comment on above: Order Comment: Speci men Type: BLOOD SPECIMEN Ordering Facility: [facility] Address: [address] [place] [address] Performed By: #### 5 8410-2 #### [facility] CLIA [id number] [address] [place] [address] [place] Platelets (Bld) [#/Vol] 162 10*3/uL Normal 150-400 [facility] Comment on above: Order Comment: Speci men Type: BLOOD SPECIMEN Ordering Facility: [facility] Address: [address] [place] [address] Performed By: #### 5 8410-2 #### [facility] IA [id number] [address] [place] [address] [place] RBC (Bld) [#/Vol] 3.68 10*6/uL Low 4.20-6.00 [facility] Comment on above: Order Comment: Speci men Type: BLOOD SPECIMEN Ordering Facility: [facility] Address: [address] [place] [address] Performed By: #### 5 8410-2 #### [facility] CLIA [id number] [address] [place] [address] [place] WBC (Bld) [#/Vol] 7.95 10*3/uL Normal 3.70-11.00 [facility] Comment on above: Order Comment: Speci men Type: BLOOD SPECIMEN Ordering Facility: [facility] Address: [address] [place] [address] Performed By: #### 5 8410-2 #### [facility] CLIA [id number] [address] [place] [address] CONSULTon 12-08-2022 CONSULT HNO ID: [id number] Author: Lulu Oviedo MD Service: General Internal [...] Labs 12/08 (more content not included)... Normal [facility] NURSING PROGon 12-08-2022 NURSING PROG HNO ID: [id number] Author: Abdias Pemberton RN Service: Nursing Author [...] notified of the patient's increased pain after MAGAZINE JOURNALIST was DC'ed earlier and transitioned to PO medications. Hydromorphone MAGAZINE JOURNALIST reordered per Dr. Mathew. 172: Hydromorphone MAGAZINE JOURNALIST restarted. 1735: Patient assisted by nursing staff to bed and states that his pain has decreased. Patient resting comfortably in bed at this time. 1900: Patient resting comfortably in bed at this time. [facility] THERAPY NT 12-08-2022 THERAPY NT HNO ID: [id number] Author: Taylor Montoya OTR/Kelly Service: Occupational Therapy Author Type: Occupational Therapist Type: Therapy (PT/OT/Speech/Resp) Filed: 12/08/2022 12:35 PM Note Text: OCCUPATIONAL THERAPY MISSED VISIT SERVICE DATE: 12/08/2022 SERVICE TIME: 1233 to 1233 ROOM: [place] [address] Patient not seen due to Refused Treatment. Patient having a significant amount of pain. Offered patient option of working with OT tomorrow. Pt would prefer OT evaluation tomorrow. SIGNATURE: URSULA Glynn/Kelly PATIENT NAME: Sukhdeep Simental DATE: December 08, 2022 TIME: 12:34 PM [facility] THERAPY NT HNO ID: [id number] Author: Jean-Pierre Lutz, PT, DPT Service: Physical Therapy Author Type: Physical Therapist Type: Therapy (PT/OT/Speech/Resp) Filed: 12/08/2022 8:44 AM Note Text: Physical Therapy Evaluation SERVICE DATE: 12/08/2022 SERVICE TIME: 08 to 0831 ROOM: [place] [address] Cleared from Physical Therapy Recommended Discharge Disposition: [...] Weakness (generalized) Interventions Provided: Evaluation, Gait Training (35877) $ Evaluation-Low (65170) Billed Units: 1 unit Gait Training (43528) Treatment Minutes: 8 $ Gait Training (46546) Billed Units: 1 unit Training AND Education [...] DATE: December 08, 2022 TIME: 8:44 AM [facility] ANES POSTPROC EVALon 023 ANES POSTPROC EVAL HNO ID: [id number] Author: Ankit Orlando MD Service: Anesthesiology Author [...] December 07, 2022 TIME: 3:37 PM CSN: [id number] [facility] ANES PRE-OPon 12-07-2022 ANES PRE-OP HNO ID: [id number] Author: Nasim Pruett I, MD Service: Anesthesiology [...] December 07, 2022 TIME: 7:01 AM CSN: [id number] [facility] BRIEF OP NOTon 12-07-2022 BRIEF OP NOT HNO ID: [id number] Author: Thomas Mathew MD Service: Neurosurgery Author Type: Physician Type: Brief Op Note Filed: 12/07/2022 12:49 PM Note Text: BRIEF OPERATIVE / PROCEDURE NOTE LOG ID: [id number] SURGERY/PROCEDURE DATE: 12/07/2022 INCISION/PROCEDURE START TIME: 8:09 AM INCISION CLOSE/PROCEDURE END TIME: 12:34 PM SURGEON(S)/PROCEDURALI ST(S) AND HOUSE SHORER(S): Surgeon(s) and Role: * Thomas Mathew MD [...] DATE: December 07, 2022 TIME: 12:31 PM [facility] NURSING PROGon 12-07-2022 NURSING PROG HNO ID: [id number] Author: Livia Calix RN Service: ? Author Type: Registered Nurse Type: Nursing Progress Note Filed: 12/07/2022 2:48 PM Note Text: Transfer Note: PATIENT NAME: Sukhdeep Simental Patient Location: [address]/[facility]-503[facility]- 02 Room: [place] [address] Patient transferred into room/unit [facility]-2 in stable condition. Patient educated on use of call light, fall precautions, and incentive spirometer. No futher actions taken at this time. Will continue to monitor and check with patient. [facility] OPERATIVE NOon 12-07-2022 OPERATIVE NO HNO ID: [id number] Author: Thomas Mathew MD Service: Neurosurgery Author Type: Physician Type: Operative Report Filed: 12/07/2022 3:54 PM Note Text: OPERATIVE/PROCEDURE REPORT LOG ID: [id number] SURGERY/PROCEDURE DATE: 12/07/2022 INCISION/PROCEDURE START TIME: 8:09 AM INCISION CLOSE/PROCEDURE END TIME: 12:34 PM SURGEON(S)/PROCEDURALI ST(S) AND HOUSE SHORER(S): Surgeon(s) and Role: * Thomas Mathew MD [...] and sized at a 10 mm. The B2B-Center system was the instrumentation system used. Local [...] was used to make a small pilot can router hole. The gear shift along with pedicle [...] Implant Name Type Inv. Item Serial No. Hand Wrapper Operator Lot No. LRB No. Used Action VITOSS BA2X BIOACTIVE BONE GRAFT SUBSTITUTE 5.0CUB CM Implant [place] [id number] N/A 1 Implanted CAGE TRITANIUM 6D [id number] SPINAL STERILE LATEX FREE LUMBAR POSTERIOR - [id number] Implant CAGE TRITANIUM 6D [id number] SPINAL STERILE LATEX FREE LUMBAR POSTERIOR [place] SPINE T9H8 N/A 1 Implanted CAGE TRITANIUM 6D [id number] SPINAL STERILE LATEX FREE LUMBAR POSTERIOR - [id number] Implant CAGE TRITANIUM 6D [id number] (more content not included)... [facility] XR LUMBAR 2V AP/LATon 2022 [...] examination for surgical planning and documentation. . Manager Ship: PSCJohn Transcribe Date/Time: Dec 07 2022 3:13P Dictated by : DONNY WOO DO This examination was interpreted and the report reviewed and electronically signed by: DONNY WOO DO on Dec 07 2022 3:15PM EST [id number] [facility] XR LUMBAR 2V AP/LAT * [...] Intraoperative examination for surgical planning and documentation. Manager Ship: COURTNEY Transcribe Date/Time: Dec 07 2022 2:43P Dictated by : DONNY WOO DO This examination was interpreted and the report reviewed and electronically signed by: DONNY WOO DO on Dec 07 2022 2:46PM EST [id number] [facility] XR LUMBAR 2V AP/LAT * [...] examination for surgical planning and documentation. . Manager Ship: PSCB Transcribe Date/Time: Dec 07 2022 2:37P Dictated by : DONNY WOO DO This examination was interpreted and the report reviewed and electronically signed by: DONNY WOO DO on Dec 07 2022 2:40PM EST [id number] [facility] 11-29-2022 [place] Telephone (NIQ) SUKHDEEP SIMENTAL ([id number]) 1965 M Date Time Provider Department 11/29/22 THOMAS MATHEW NI During your visit today, we recorded the following information about you: Moriah Ferguson 11/29/2022 9:50 AM Signed Patient called regarding a C/9 being filed for his Dec 07 surgery. He spoke to his [facility] contact and they said nothing has been filed yet. Please update patient. Juan Pablo Nova RN 11/29/2022 10:27 AM Signed C9 sent to provider for signature. Awaiting signature. Juan Pablo Nova RN 11/29/2022 12:20 PM Signed Signed C9 sent to [facility] and [facility]. Faxed verifications received. Kathe Lezama 12/05/2022 11:01 AM Signed Patient calling asking for an update on his C9 and surgery approval. He would like to know if nurse can reach out to [facility] for an update and let him know. Juan Pablo Nova RN 12/05/2022 11:43 AM Signed Called Sunita and discussed patient's upcoming surgery. Per Sunita she did already explain to the patient that the information was submitted to the [employer] for review and does take up to 5 business days for a decision. Juan Pablo Nova RN 12/05/2022 1:16 PM Signed Spoke with patient. Informed case is still on for Saturday and that I spoke with Sunita. Patient appreciative of call. Ekaterina Rondon 12/06/2022 11:34 AM Addendum Sunita called from [facility], regarding patient surgery tomorrow. Surgery has been approved based on what it was shown on the medical record. Sunita wanted a called back # [phone] Ekaterina Rondon 12/06/2022 11:35 AM Signed [facility]. Scan [...] Date Reviewed: 11/21/2022 Reviewed by: Maite Galloway APRN.AQUA AMMONIA OPERATOR - Fully Assessed Reason for Visit: [...] by JUAN PABLO NOVA on 11/29/22 Normal [facility] CBC W Auto Differential pane l (Bld)on 11-21-2022 Basophils (Bld) [#/Vol] 0.04 10*3/uL Normal <0.11 [facility] Comment on above: Order Comment: Speci men Type: BLOOD SPECIMENOrdering Facility: [facility] Address: [address] [address] Performed By: #### 5 7021-8 ####[facility] LABCLIA [id number] [place] [address] [place] Basophils/100 WBC (Bld) 0.8 % Normal [facility] Comment on above: Order Comment: Speci men Type: BLOOD SPECIMENOrdering Facility: [facility] Address: [address] [address] Performed By: #### 5 7021-8 ####[facility] LABCLIA [id number] [place] [address] [place] Differential cell count method Nom (Bld) Auto Normal [facility] Comment on above: Order Comment: Speci men Type: BLOOD SPECIMENOrdering Facility: [facility] Address: [address] [place], [place] [address] Performed By: #### 5 7021-8 ####[facility] LABCLIA [id number] [place] [address] [place] Eosinophils (Bld) [#/Vol] 0.11 10*3/uL Normal <0.46 [facility] Comment on above: Order Comment: Speci men Type: BLOOD SPECIMENOrdering Facility: [facility] Address: [address] [place], [place] [address] Performed By: #### 5 7021-8 ####[facility] LABCLIA [id number] [address] [place] Eosinophils/100 WBC (Bld) 2.1 % Normal [facility] Comment on above: Order Comment: Speci men Type: BLOOD SPECIMENOrdering Facility: [facility] Address: [address] [place], [place] [address] Performed By: #### 5 7021-8 ####[facility] LABCLIA [id number] [place] [address] [place] Erythrocyte distribution width (RBC) [Ratio] 12.4 % Normal 11.5-15.0 [facility] Comment on above: Order Comment: Speci men Type: BLOOD SPECIMENOrdering Facility: [facility] Address: [address] [place], [place] [address] Performed By: #### 5 7021-8 ####[facility] LABCLIA [id number] [place] [address] [place] Hematocrit (Bld) [Volume fraction] 42.9 % Normal 39.0-51.0 [facility] Comment on above: Order Comment: Speci men Type: BLOOD SPECIMENOrdering Facility: [facility] Address: [address] [place], [place] [address] Performed By: #### 5 7021-8 ####[facility] LABCLIA [id number] [place] [address] [place] Hemoglobin (Bld) [Mass/Vol] 14.5 g/dL Normal 13.0-17.0 [facility] Comment on above: Order Comment: Speci men Type: BLOOD SPECIMENOrdering Facility: [facility] Address: [address] [place], [place] [address] Performed By: #### 5 7021-8 ####[facility] LABCLIA [id number] [place] [address] [place] Immature granulocytes (Bld) [#/Vol] 10*3/uL Normal <0.10 [facility] Comment on above: Order Comment: Speci men Type: BLOOD SPECIMENOrdering Facility: [facility] Address: [address] [place], [place] [address] Performed By: #### 5 7021-8 ####[facility] LABCLIA [id number] [place] [address] [place] Immature granulocytes/100 WBC (Bld) 0.4 % Normal [facility] Comment on above: Order Comment: Speci men Type: BLOOD SPECIMENOrdering Facility: [facility] Address: [address] [place], [place] [address] Performed By: #### 5 7021-8 ####[facility] LABCLIA [id number] [place] [address] [place] Lymphocytes (Bld) [#/Vol] 1.45 10*3/uL Normal 1.00-4.00 [facility] Comment on above: Order Comment: Speci men Type: BLOOD SPECIMENOrdering Facility: [facility] Address: [address] [place] [address] Performed By: #### 5 7021-8 ####[facility] LABIA [id number] [address] [place] Lymphocytes/100 WBC (Bld) 27.4 % Normal [facility] Comment on above: Order Comment: Speci men Type: BLOOD SPECIMENOrdering Facility: [facility] Address: [address] [place], [place] [address] Performed By: #### 5 7021-8 ####[facility] LABIA [id number] [place] [address] [place] MCH (RBC) [Entitic mass] 31.7 pg Normal 26.0-34.0 [facility] Comment on above: Order Comment: Speci men Type: BLOOD SPECIMENOrdering Facility: [facility] Address: [address] [place], [place] [address] Performed By: #### 5 7021-8 ####[facility] LABIA [id number] [address] [place] MCHC (RBC) [Mass/Vol] 33.8 g/dL Normal 30.5-36.0 [facility] Comment on above: Order Comment: Speci men Type: BLOOD SPECIMENOrdering Facility: [facility] Address: [address] [place], [place] [address] Performed By: #### 5 7021-8 ####[facility] LABIA [id number] [address] [place] MCV (RBC) [Entitic vol] 93.7 fL Normal 80.0-100.0 [facility] Comment on above: Order Comment: Speci men Type: BLOOD SPECIMENOrdering Facility: [facility] Address: [address] [place], [place] [address] Performed By: #### 5 7021-8 ####[facility] LABIA [id number] [place] [id number] [address] [place] Monocytes (Bld) [#/Vol] 0.49 10*3/uL Normal <0.87 [facility] Comment on above: Order Comment: Speci men Type: BLOOD SPECIMENOrdering Facility: [facility] Address: [address] [place] [address] Performed By: #### 5 7021-8 ####[facility] LABCLIA [id number] [place] [address] [place] Monocytes/100 WBC (Bld) 9.2 % Normal [facility] Comment on above: Order Comment: Speci men Type: BLOOD SPECIMENOrdering Facility: [facility] Address: [address] [place], [place] [address] Performed By: #### 5 7021-8 ####[facility] LABCLIA [id number] [place] [address] [place] Neutrophils (Bld) [#/Vol] 3.19 10*3/uL Normal 1.45-7.50 [facility] Comment on above: Order Comment: Speci men Type: BLOOD SPECIMENOrdering Facility: [facility] Address: [address] [place], [place] [address] Performed By: #### 5 7021-8 ####[facility] LABCLIA [id number] [place] [address] [place] Neutrophils/100 WBC (Bld) 60.1 % Normal [facility] Comment on above: Order Comment: Speci men Type: BLOOD SPECIMENOrdering Facility: [facility] Address: [address] [place], [place] [address] Performed By: #### 5 7021-8 ####[facility] LABCLIA [id number] [place] [address] [place] Nucleated RBC (Bld) [#/Vol] 10*3/uL Normal <0.01 [facility] Comment on above: Order Comment: Speci men Type: BLOOD SPECIMENOrdering Facility: [facility] Address: [address] Performed By: #### 5 7021-8 ####[facility] LABCLIA [id number] [place] [address] [place] Nucleated RBC/100 WBC (Bld) [Ratio] 0.0 /100 WBC Normal [facility] Comment on above: Order Comment: Speci men Type: BLOOD SPECIMENOrdering Facility: [facility] Address: [address] Performed By: #### 5 7021-8 ####[facility] LABIA [id number] [place] [address] [place] Platelet mean volume (Bld) [Entitic vol] 9.4 fL Normal 9.0-12.7 [facility] Comment on above: Order Comment: Speci men Type: BLOOD SPECIMENOrdering Facility: [facility] Address: [address] Performed By: #### 5 7021-8 ####[facility] LABCLIA [id number] [place] [address] [place] Platelets (Bld) [#/Vol] 222 10*3/uL Normal 150-400 [facility] Comment on above: Order Comment: Speci men Type: BLOOD SPECIMENOrdering Facility: [facility] Address: [address] Performed By: #### 5 7021-8 ####[facility] LABCLIA [id number] [place] [address] [place] RBC (Bld) [#/Vol] 4.58 10*6/uL Normal 4.20-6.00 [facility] Comment on above: Order Comment: Speci men Type: BLOOD SPECIMENOrdering Facility: [facility] Address: [address] Performed By: #### 5 7021-8 ####[facility] LABCLIA [id number] [place] [address] [place] WBC (Bld) [#/Vol] 5.30 10*3/uL Normal 3.70-11.00 [facility] Comment on above: Order Comment: Speci men Type: BLOOD SPECIMENOrdering Facility: [facility] Address: [address] [place] [address] Performed By: #### 5 7021-8 ####[facility] LABCLIA [id number] [place] [address] [place] CONFIRM BLOOD TYPEon 023 ABO A Normal [facility] Comment on above: Order Comment: Speci men Type: BLOOD SPECIMENOrdering Facility: [facility] Address: [address] [place] [address] Performed By: #### C ONABO ####[facility] BLOOD BANKCLIA [id number] [place] [address] [place] Rh Nom (Bld) Negative Normal [facility] Comment on above: Order Comment: Speci men Type: BLOOD SPECIMENOrdering Facility: [facility] Address: [address] [place] [address] Performed By: #### C ONABO ####[facility] BLOOD BANKCLIA [id number] [place] [address] [place] Comprehensive metabolic 2000 panelon 11-21-2022 Albumin [Mass/Vol] 4.3 g/dL Normal 3.9-4.9 [facility] Comment on above: Order Comment: Speci men Type: BLOOD SPECIMENOrdering Facility: [facility] Address: [address] [place] [address] Performed By: #### 2 4323-8 ####[facility] LABCLIA [id number] [place] [address] [place] ALP [Catalytic activity/Vol] 68 U/L Normal 38-113 [facility] Comment on above: Order Comment: Speci men Type: BLOOD SPECIMENOrdering Facility: [facility] Address: [address] [address] Performed By: #### 2 4323-8 ####[facility] LABCLIA [id number] [address] [place] OF [facility] ALT [Catalytic activity/Vol] 16 U/L Normal 10-54 [facility] Comment on above: Order Comment: Speci men Type: BLOOD SPECIMENOrdering Facility: [facility] Address: [address] [address] Performed By: #### 2 4323-8 ####[facility] LABCLIA [id number] [place] [address] [place] Anion gap [Moles/Vol] 10 mmol/L Normal 9-18 [facility] Comment on above: Order Comment: Speci men Type: BLOOD SPECIMENOrdering Facility: [facility] Address: [address] [address] Performed By: #### 2 4323-8 ####[facility] LABCLIA [id number] [address] [place] AST [Catalytic activity/Vol] 21 U/L Normal 14-40 [facility] Comment on above: Order Comment: Speci men Type: BLOOD SPECIMENOrdering Facility: [facility] Address: [address] Performed By: #### 2 4323-8 ####[facility] LABCLIA [id number] [place] [address] [place] Bilirubin [Mass/Vol] 0.5 mg/dL Normal 0.2-1.3 [facility] Comment on above: Order Comment: Speci men Type: BLOOD SPECIMENOrdering Facility: [facility] Address: [address] Performed By: #### 2 4323-8 ####[facility] LABCLIA [id number] [place] [address] [place] Calcium [Mass/Vol] 9.9 mg/dL Normal 8.5-10.2 [facility] Comment on above: Order Comment: Speci men Type: BLOOD SPECIMENOrdering Facility: [facility] Address: [address] [place] [address] Performed By: #### 2 4323-8 ####[facility] LABCLIA [id number] [place] [address] [place] Chloride [Moles/Vol] 106 mmol/L High 97-105 [facility] Comment on above: Order Comment: Speci men Type: BLOOD SPECIMENOrdering Facility: [facility] Address: [address] [place] [address] Performed By: #### 2 4323-8 ####[facility] LABCLIA [id number] [place] [address] [place] CO2 [Moles/Vol] 27 mmol/L Normal 22-30 [facility] Comment on above: Order Comment: Speci men Type: BLOOD SPECIMENOrdering Facility: [facility] Address: [address] [place], [place] [address] Performed By: #### 2 4323-8 ####[facility] LABCLIA [id number] [place] [address] [place] Creatinine [Mass/Vol] 1.22 mg/dL Normal 0.73-1.22 [facility] Comment on above: Order Comment: Speci men Type: BLOOD SPECIMENOrdering Facility: [facility] Address: [address] [place], [place] [address] Performed By: #### 2 4323-8 ####[facility] LABCLIA [id number] [place] [address] [place] Creatinine and Glomerular filtration rate.predicted panel (S/P/Bld) 68 mL/min/1.73m??? Normal >=60 [facility] Comment on above: Order Comment: Shahrzad dumont Type: BLOOD SPECIMENOrdering Facility: [facility] Address: [address] [place] [address] Result Comment: Leah mated Glomerular Filtration Rate [...] actual GFR. Performed By: #### 2 4323-8 ####[facility] LABIA [id number] [place] [address] [place] Glucose [Mass/Vol] 111 mg/dL High 74-99 [facility] Comment on above: Order Comment: Shahrzad dumont Type: BLOOD SPECIMENOrdering Facility: [facility] Address: [address] [address] Result Comment: The [place] Diabetes Association (ADA) provides guidance for cutoff [...] Standards of Medical Care in Diabetes 2016, [place] [employer] Association. Diabetes Care. 2016.39(Suppl 1). Performed By: #### 2 4323-8 ####[facility] [id number] [place] [address] [place] Potassium [Moles/Vol] 4.2 mmol/L Normal 3.7-5.1 [facility] Comment on above: Order Comment: Shahrzad dumont Type: BLOOD SPECIMENOrdering Facility: [facility] Address: [address] [address] Performed By: #### 2 4323-8 ####[facility] LABCLIA [id number] [place] [address] [place] Protein [Mass/Vol] 7.0 g/dL Normal 6.3-8.0 [facility] Comment on above: Order Comment: Speci men Type: BLOOD SPECIMENOrdering Facility: [facility] Address: [address] [address] Performed By: #### 2 4323-8 ####[facility] LABIA [id number] [place] [address] [place] Sodium [Moles/Vol] 143 mmol/L Normal 136-144 [facility] Comment on above: Order Comment: Speci men Type: BLOOD SPECIMENOrdering Facility: [facility] Address: [address] [address] Performed By: #### 2 4323-8 ####[facility] LABIA [id number] [place] [address] [place] Urea nitrogen [Mass/Vol] 22 mg/dL Normal 9-24 [facility] Comment on above: Order Comment: Speci men Type: BLOOD SPECIMENOrdering Facility: [facility] Address: [address] [place] [address] Performed By: #### 2 4323-8 ####[facility] LABIA [id number] [place] [address] [place] ENY90cd 11-21-2022 ECG01 Ventricular Rate : 6 5 BPM Atrial Rate : 65 BPM P-R Interval : 180 ms QRS Duration : 98 ms Q-T Interval : 440 ms QTC Calculation(Bazett) : 457 ms Calculated P [place] : 0 degrees Calculated R [place] : -10 degrees Calculated T [place] : 49 degrees NORMAL SINUS RHYTHM NORMAL ECG Confirmed by SHANIA RESTREPO M.D. ([id number]) on 11/22/2022 12:00:34 PM NAME : SUKHDEEP SIMENTAL PID : [id number] : 1965 Gender : Male Race : ORD : Procedure Date : Nov 21 2022 10:59:49 Edit Date : Nov 22 2022 12:00:38 Diagnosis: NORMAL SINUS RHYTHM NORMAL ECG Confirmed by SHANIA RESTREPO M.D. ([id number]) on 11/22/2022 12:00:34 PM Test Reason : SURGERY Location : [facility] : [facility] Overread By : SHANIA RESTREPO M.D. Edited By : SHANIA RESTREPO M.D. Referred By : THOMAS MATHEW Acquired by : Santiago DANIELLE [facility] HISTORY PHYSICALon HISTORY PHYSICAL HNO ID: [id number] Author: Maite Galloway APRN.AQUA AMMONIA OPERATOR Service: ? Author Type: Nurse Practitioner [...] pain. Skin: (more content not included)... Normal [facility] HbA1c (Bld)on 11-21-2022 Average glucose Estimated from glycated hemoglobin (Bld) [Mass/Vol] 111 mg/dL Normal [facility] Comment on above: Order Comment: Shahrzad dumont Type: BLOOD SPECIMENOrdering Facility: [facility] Address: [address] [address] Result Comment: eAG: (Estimated average glucose) is a calculated value from HgbA1c and is consumer sales representative of the average blood glucose level in the last 2-3 month period. Performed By: #### 5 5454-3 ####[facility] LABCLIA [id number] [facility] [id number] [place] [address] [place] HbA1c (Bld) [Mass fraction] 5.5 % Normal 4.3-5.6 [facility] Comment on above: Order Comment: Shahrzad dumont Type: BLOOD SPECIMENOrdering Facility: [facility] Address: [address] [address] Result Comment: [place] Diabetes Association guidelines indicate that patients with HgbA1c in the range 5.7-6.4% are at increased risk for development of diabetes, and intervention by lifestyle modification may be beneficial. HgbA1c greater or equal to 6.5% is considered diagnostic of diabetes. Performed By: #### 5 5454-3 ####[facility] LABCLIA [id number] [address] TYPE AND SCREEN,30 DAYon ABO A Normal [facility] Comment on above: Order Comment: Speci men Type: BLOOD SPECIMENOrdering Facility: [facility] Address: [address] [place] [address] Performed By: #### T SCR30 ####[facility] BLOOD BANKCLIA [id number] [address] HISTORICAL AB SCR STATUS Negative Normal [facility] Comment on above: Order Comment: Speci men Type: BLOOD SPECIMENOrdering Facility: [facility] Address: [address] [place] [address] Performed By: #### T SCR30 ####[facility] BLOOD BANKCLIA [id number] [address] Rh Nom (Bld) Negative Normal [facility] Comment on above: Order Comment: Speci men Type: BLOOD SPECIMENOrdering Facility: [facility] Address: [address] [place] [address] Performed By: #### T SCR30 ####[facility] BLOOD BANKIA [id number] [address] ABD/PELVIS WO CONon 07-06 CT [...] by: OBIE TSE Date: 2022-07-06 13:19 Normal [facility] PTH INTACTon 06-12-2022 PTH, Intact 38 pg/mL Normal 15-65 [facility] Comment on above: Performed By: #### P T #### [facility] [address] [place] [address] Dr. Hugh Landis FERRITINon 06-11-2022 Ferritin [Mass/Vol] 96.0 ng/mL Normal 26.0-388.0 [facility] Comment on above: Performed By: #### P T #### [facility] [address] [place] [address] Dr. Hugh Landis HEMOGRAM AND PLATELon 2022 Hematocrit (Bld) [Volume fraction] 39.1 % Critically low 42.0-54.0 [facility] Comment on above: Performed By: #### H H #### [facility] [address] [address] [address] Hugh Landis Hemoglobin (Bld) [Mass/Vol] 13.3 g/dL Critically low 14.0-18.0 [facility] Comment on above: Performed By: #### H H #### [facility] [address] [place] [address] Dr. Hugh Landis MCH (RBC) [Entitic mass] 30.5 pg Normal 25.9-34.0 [facility] Comment on above: Performed By: #### H H #### [facility] [address] [address] [address] Hugh Landis MCHC (RBC) [Mass/Vol] 34.0 g/dL Normal 29.9-35.2 [facility] Comment on above: Performed By: #### H H #### [facility] [address] [address] [address] Hugh Landis MCV (RBC) [Entitic vol] 89.7 fL Normal 80.0-94.0 [facility] Comment on above: Performed By: #### H H #### [facility] [address] [place] [address] Dr. Hugh Landis PLT 230 103/ul Normal 150-450 [facility] Comment on above: Performed By: #### H H #### [facility] [address] [place] [address] Dr. Hugh Landis RBC 4.36 106/ul Critically low 4.70-6.10 [facility] Comment on above: Performed By: #### H H #### [facility] [address] [address] [address] Hugh Landis WBC 4.8 103/ul Normal 4.0-11.0 [facility] Comment on above: Performed By: #### H H #### [facility] [address] [place] [address] Dr. Hugh Landis IRON AND TIBCon 06-11-2022 % SATURATION 55.0 % Normal [facility] Comment on above: Performed By: #### P T #### [facility] [address] [place] [address] Dr. Hugh Landis Iron [Mass/Vol] 137.0 ug/dL Normal 65.0-175.0 [facility] [place] [facility] Comment on above: Performed By: #### P T #### [facility] [address] [address] [address] Hugh Landis TIBC DIRECT 249.0 ug/dL Critically low 250.0-450.0 [facility] Comment on above: Performed By: #### P T #### [facility] [address] [address] [address] Hugh Landis MAGNESIUMon 06-11-2022 Magnesium [Mass/Vol] 1.9 mg/dL Normal 1.8-2.4 [facility] Comment on above: Performed By: #### P TT #### [facility] [address] [place] [address] Dr. Hugh Landis RENAL FUNCTION PANELon 06-11 Albumin [Mass/Vol] 3.5 g/dL Normal 3.4-5.0 [facility] Comment on above: Performed By: #### P TT #### [facility] [address] [address] [address] Hugh Landis Calcium [Mass/Vol] 9.5 mg/dL Normal 8.5-10.1 [facility] Comment on above: Performed By: #### P TT #### [facility] [address] [place] [address] Dr. Hugh Landis Chloride [Moles/Vol] 107 mmol/L Normal 98-107 [facility] Comment on above: Performed By: #### P TT #### [facility] [address] [address] [address] Hugh Landis CO2 [Moles/Vol] 30.9 mmol/L Normal 21.0-32.0 [facility] Comment on above: Performed By: #### P TT #### [facility] [address] [place] [address] Dr. Hugh Landis Creatinine [Mass/Vol] 1.41 mg/dL Critically high 0.70-1.30 [facility] Comment on above: Performed By: #### P TT #### [facility] [address] [address] [address] Hugh Landis EGFR-AF BHUTANESE >60 Normal >=60 [facility] Comment on above: Performed By: #### P TT #### [facility] [address] [place] [address] Dr. Hugh Landis EGFR-NON AF BHUTANESE 52 mL/min/1.73m2 Critically low >=60 [facility] Comment on above: Performed By: #### P TT #### [facility] [address] [address] [address] Hugh Landis Glucose [Mass/Vol] 118 mg/dL Critically high 74-106 [facility] Comment on above: Performed By: #### P TT #### [facility] [address] [address] [address] Hugh Landis Phosphate [Mass/Vol] 3.0 mg/dL Normal 2.6-4.7 [facility] Comment on above: Performed By: #### P TT #### [facility] [address] [address] [address] Hugh Landis Potassium [Moles/Vol] 3.9 mmol/L Normal 3.5-5.1 [facility] Comment on above: Performed By: #### P TT #### [facility] [address] [address] [address] Hugh Landis Sodium [Moles/Vol] 143 mmol/L Normal 136-145 [facility] Comment on above: Performed By: #### P TT #### [facility] [address] [address] [address] Hugh Landis Urea nitrogen [Mass/Vol] 19.0 mg/dL Critically high 7.0-18.0 [facility] Comment on above: Performed By: #### P TT #### [facility] [address] [address] [address] Hugh Landis UA RANDOM W/MICROSCOPICon BACTERIA NONE SEEN Normal NONE SEEN [facility] Comment on above: Performed By: #### P T #### [facility] [address] [address] [address] Hugh Landis Bilirubin Ql (U) Negative Normal NEGATIVE [facility] Comment on above: Performed By: #### P T #### [facility] [address] [address] [address] Hugh Landis CAST NONE SEEN Normal NONE SEEN [facility] Comment on above: Performed By: #### P T #### [facility] [address] [address] [address] Hugh Landis Clarity (U) CLEAR Normal CLEAR [facility] Comment on above: Performed By: #### P T #### [facility] [address] [address] [address] Hugh Landis Color (U) YELLOW Normal YELLOW [facility] Comment on above: Performed By: #### P T #### [facility] [address] [address] [address] Hugh Landis Crystals LM Nom (Urine sed) NONE SEEN Normal NONE SEEN [facility] Comment on above: Performed By: #### P T #### [facility] [address] [address] [address] Hugh Landis Epithelial cells LM Ql (Urine sed) FEW Abnormal NONE SEEN /RARE [facility] Comment on above: Performed By: #### P T #### [facility] [address] [place] [address] Dr. Hugh Landis Glucose Ql (U) Negative Normal NEGATIVE [facility] Comment on above: Performed By: #### P T #### [facility] [address] [address] [address] Hugh Landis Hemoglobin Ql (U) Negative Normal NEGATIVE [facility] Comment on above: Performed By: #### P T #### [facility] [address] [place] [address] Dr. Hugh Landis Ketones Ql (U) TRACE Abnormal NEGATIVE [facility] Comment on above: Performed By: #### P T #### [facility] [address] [address] [address] Hugh Landis LEUKOCYTES Negative Normal NEGATIVE [facility] Comment on above: Performed By: #### P T #### [facility] [address] [address] [address] Hugh Landis MUCOUS MODERATE Abnormal NONE SEEN [facility] Comment on above: Performed By: #### P T #### [facility] [address] [place] [address] Dr. Hugh Landis Nitrite Ql (U) Negative Normal NEGATIVE [facility] Comment on above: Performed By: #### P T #### [facility] [address] [place] [address] Dr. Hugh Landis pH (U) 5.0 [pH] Normal 5-9 [facility] Comment on above: Performed By: #### P T #### [facility] [address] [place] [address] Dr. Hugh Landis RBC NONE SEEN Abnormal 0-2 [facility] Comment on above: Performed By: #### P T #### [facility] [address] [place] [address] Dr. Hugh Landis SPEC GRAVITY 1.025 Normal 1.005-<=1.02 5 [facility] Comment on above: Performed By: #### P T #### [facility] [address] [place] [address] Dr. Hugh Landis UA PROTEIN TRACE Normal NEGATIVE/ TRACE [facility] Comment on above: Performed By: #### P T #### [facility] [address] [place] [address] Dr. Hugh Landis Urobilinogen Qn (U) 0.2 {Dahiana'U}/dL Normal 0.2 - 1. 0 [facility] Comment on above: Performed By: #### P T #### [facility] [address] [place] [address] Dr. Hugh Landis WBC NONE SEEN Normal NONE SEEN [facility] Comment on above: Performed By: #### P T #### [facility] [address] [place] [address] Dr. Hugh Landis URIC ACID SERUMon 06-11-2022 Urate [Mass/Vol] 7.5 mg/dL Critically high 3.5-7.2 [facility] Comment on above: Performed By: #### P TT #### [facility] [address] [place] [address] Dr. Hugh Landis VITAMIN D 25 OHon 06-11-2022 VIT D 25-OH 35.0 ng/mL Normal [facility] Comment on above: Performed By: #### P T #### [facility] [address] [place] [address] Dr. Hugh Landis VIT D RANGES SEE BELOW Normal [facility] Comment on above: Result Comment: <20 ng/mL Vit D deficient 20 - <30 ng/mL Vit D insufficient 30 - 100 ng/mL Vit D sufficient >100 ng/mL Potential Toxicity Performed By: #### P T #### [facility] [address] [place] [address] Dr. Hugh Landis PROTIMEon 03-15-2022 INR Coag (PPP) [Relative time] 1.11 {INR} Normal [facility] Comment on above: Performed By: #### P T #### [facility] [address] [place] [address] Dr. Hugh Landis INR GUIDELINES SEE BELOW Normal [facility] Comment on above: Result Comment: VIC RED INR: 2.0 - 3.0 CONDITIONS NOT LISTED BELOW 2.5 - 3.5 FOR PROSTHETIC HEART VALVE REPLACEMENT 2.5 - 3.5 RECURRENT THROMBOSIS Performed By: #### P T #### [facility] [address] [place] [address] Dr. Hugh Landis PT Coag (PPP) [Time] 11.7 s Critically high 9.0-11.6 [facility] Comment on above: Performed By: #### P T #### [facility] [address] [place] [address] Dr. Hugh Landis UA (CLEAN/CATCH) GROUP BURNER MACHINE/MICRO I F IND.on 03-15-2022 Bilirubin Ql (U) Negative Normal NEGATIVE [facility] Comment on above: Performed By: #### P TT #### [facility] [address] [place] [address] Dr. Hugh Landis Clarity (U) CLEAR Normal CLEAR [facility] Comment on above: Performed By: #### P TT #### [facility] [address] [place] [address] Dr. Hugh Landis Color (U) YELLOW Normal YELLOW [facility] Comment on above: Performed By: #### P TT #### [facility] [address] [place] [address] Dr. Hugh Landis Glucose Ql (U) Negative Normal NEGATIVE [facility] Comment on above: Performed By: #### P TT #### [facility] [address] [place] [address] Dr. Hugh Landis Hemoglobin Ql (U) SMALL Abnormal NEGATIVE [facility] Comment on above: Performed By: #### P TT #### [facility] [address] [address] [address] Hugh Landis Ketones Ql (U) Negative Normal NEGATIVE [facility] Comment on above: Performed By: #### P TT #### [facility] [address] [place] [address] Dr. Hugh Landis LEUKOCYTES Negative Normal NEGATIVE [facility] Comment on above: Performed By: #### P TT #### [facility] [address] [place] [address] Dr. Hugh Landis Nitrite Ql (U) Negative Normal NEGATIVE [facility] Comment on above: Performed By: #### P TT #### [facility] [address] [place] [address] Dr. Hugh Landis pH (U) 5.5 [pH] Normal 5-9 [facility] Comment on above: Performed By: #### P TT #### [facility] [address] [place] [address] Dr. Hugh Landis SPEC GRAVITY 1.025 Normal 1.005-<=1.02 5 [facility] Comment on above: Performed By: #### P TT #### [facility] [address] [place] [address] Dr. Hugh Landis UA PROTEIN Negative Normal NEGATIVE/ TRACE [facility] Comment on above: Performed By: #### P TT #### [facility] [address] [place] [address] Dr. Hugh Landis UR MICRO IND INDICATED Normal [facility] Comment on above: Performed By: #### P TT #### [facility] [address] [place] [address] Dr. Hugh Landis Urobilinogen Qn (U) 0.2 {Dahiana'U}/dL Normal 0.2 - 1. 0 [facility] Comment on above: Performed By: #### P TT #### [facility] [address] [place] [address] Dr. Hugh Landis URINE MICROSCOPIC ONLYon BACTERIA TRACE Abnormal NONE SEEN [facility] Comment on above: Performed By: #### P TT #### [facility] [address] [place] [address] Dr. Hugh Landis Bacteria identified Cx Nom (U) NOT INDICATED Normal [facility] Comment on above: Performed By: #### P TT #### [facility] [address] [place] [address] Dr. Hugh Landis CAST NONE SEEN Normal NONE SEEN [facility] Comment on above: Performed By: #### P TT #### [facility] [address] [place] [address] Dr. Hugh Landis Crystals LM Nom (Urine sed) NONE SEEN Normal NONE SEEN [facility] Comment on above: Performed By: #### P TT #### [facility] [address] [place] [address] Dr. Hugh Landis Epithelial cells LM Ql (Urine sed) RARE Normal NONE SEEN /RARE [facility] Comment on above: Performed By: #### P TT #### [facility] [address] [place] [address] Dr. Hugh Landis MUCOUS NONE SEEN Normal NONE SEEN [facility] Comment on above: Performed By: #### P TT #### [facility] [address] [place] [address] Dr. Hugh Landis RBC 0-2 Normal 0-2 [facility] Comment on above: Performed By: #### P TT #### [facility] [address] [place] [address] Dr. Hugh Landis WBC 0-2 Abnormal NONE SEEN [facility] Comment on above: Performed By: #### P TT #### [facility] [address] [place] [address] Dr. Hugh Landis MRSA NARES #1on 03-08-2022 MRSA NARES #1 Culture Observations : NO GROWTH OF MRSA AT 48 HOURS. Normal [facility] Comment on above: Performed By: #### B MP #### [facility] [address] [address] [address] Hugh Landis PROF CHEM 8 (BAS METB)on Anion gap [Moles/Vol] 9.9 mmol/L Normal [facility] Comment on above: Performed By: #### C MP, LIPID, TSH #### [facility] [address] [address] [address] Hugh Landis Calcium [Mass/Vol] 9.4 mg/dL Normal 8.5-10.1 [facility] Comment on above: Performed By: #### C MP, LIPID, TSH #### [facility] [address] [address] [address] Hugh Landis Chloride [Moles/Vol] 103 mmol/L Normal 98-107 [facility] Comment on above: Performed By: #### C MP, LIPID, TSH #### [facility] [address] [place] [address] Dr. Hugh Landis CO2 [Moles/Vol] 31.6 mmol/L Normal 21.0-32.0 [facility] Comment on above: Performed By: #### C MP, LIPID, TSH #### [facility] [address] [address] [address] Hugh Landis Creatinine [Mass/Vol] 1.25 mg/dL Normal 0.70-1.30 [facility] Comment on above: Performed By: #### C MP, LIPID, TSH #### [facility] [address] [place] [address] Dr. Hugh Landis EGFR-AF BHUTANESE >60 Normal >=60 [facility] Comment on above: Performed By: #### C MP, LIPID, TSH #### [facility] [address] [address] [address] Hugh Landis EGFR-NON AF BHUTANESE 59 mL/min/1.73m2 Critically low >=60 [facility] Comment on above: Performed By: #### C MP, LIPID, TSH #### [facility] [address] [address] [address] Hugh Landis Glucose [Mass/Vol] 110 mg/dL Critically high 74-106 [facility] Comment on above: Performed By: #### C MP, LIPID, TSH #### [facility] [address] [place] [address] Dr. Hugh Landis Potassium [Moles/Vol] 3.5 mmol/L Normal 3.5-5.1 [facility] Comment on above: Performed By: #### C MP, LIPID, TSH #### [facility] [address] [place] [address] Dr. Hugh Landis Sodium [Moles/Vol] 141 mmol/L Normal 136-145 [facility] Comment on above: Performed By: #### C MP, LIPID, TSH #### [facility] [address] [place] [address] Dr. Hugh Landis Urea nitrogen [Mass/Vol] 27.0 mg/dL Critically high 7.0-18.0 [facility] Comment on above: Performed By: #### C MP, LIPID, TSH #### [facility] [address] [place] [address] Dr. Hugh Landis Urea nitrogen/Creatinine [Mass ratio] 21.6 mg/mg Normal [facility] Comment on above: Performed By: #### C MP, LIPID, TSH #### [facility] [address] [place] [address] Dr. Hugh Landis PTTon 03-08-2022 aPTT Coag (Bld) [Time] 27.0 s Normal 22.3-36.2 [facility] Comment on above: Performed By: #### P TT #### [facility] [address] [place] [address] Dr. Hugh Landis INSULINon 01-25-2022 Insulin 11.1 uIU/mL Normal 2.6-24.9 [facility] Comment on above: Performed By: #### U TOMAS, TSH, CMP, LIPID, T7 #### [facility] [address] [place] [address] Dr. Hugh Landis CBC AUTO DIFFon 01-24-2022 BASO # 0.1 103/ul Normal 0.0-0.1 [facility] Comment on above: Performed By: #### C MP, LIPID, TSH #### [facility] [address] [place] [address] Dr. Hugh Landis Basophils/100 WBC (Bld) 1.3 % Normal 0.2-2.0 [facility] Comment on above: Performed By: #### C MP, LIPID, TSH #### [facility] [address] [place] [address] Dr. Hugh Landis EO # 0.2 103/ul Normal 0.0-0.7 [facility] Comment on above: Performed By: #### C MP, LIPID, TSH #### [facility] [address] [place] [address] Dr. Hugh Landis Eosinophils/100 WBC (Bld) 4.7 % Normal 0.9-7.0 [facility] Comment on above: Performed By: #### C MP, LIPID, TSH #### [facility] [address] [place] [address] Dr. Hugh Landis Erythrocyte distribution width (RBC) [Ratio] 12.6 % Normal 11.0-15.0 [facility] Comment on above: Performed By: #### C MP, LIPID, TSH #### [facility] [address] [place] [address] Dr. Hugh Landis Hematocrit (Bld) [Volume fraction] 39.1 % Critically low 42.0-54.0 [facility] Comment on above: Performed By: #### C MP, LIPID, TSH #### [facility] [address] [place] [address] Dr. Hugh Landis Hemoglobin (Bld) [Mass/Vol] 12.4 g/dL Critically low 14.0-18.0 [facility] Comment on above: Performed By: #### C MP, LIPID, TSH #### [facility] [address] [place] [address] Dr. Hugh Landis IG # 0.01 10e3/ul Normal 0.00-0.03 [facility] Comment on above: Performed By: #### C MP, LIPID, TSH #### [facility] [address] [place] [address] Dr. Hugh Landis IG % 0.2 % Normal 0.0-0.5 [facility] Comment on above: Performed By: #### C MP, LIPID, TSH #### [facility] [address] [place] [address] Dr. Hugh Landis LYMPH # 0.9 103/ul Critically low 1.2-3.8 [facility] Comment on above: Performed By: #### C MP, LIPID, TSH #### [facility] [address] [place] [address] Dr. Hugh Landis Lymphocytes/100 WBC (Bld) 19.4 % Critically low 20.5-60.0 [facility] Comment on above: Performed By: #### C MP, LIPID, TSH #### [facility] [address] [place] [address] Dr. Hugh Landis MANUAL DIFF REQ NO Normal [facility] Comment on above: Performed By: #### C MP, LIPID, TSH #### [facility] [address] [place] [address] Dr. Hugh Landis MCH (RBC) [Entitic mass] 29.2 pg Normal 25.9-34.0 [facility] Comment on above: Performed By: #### C MP, LIPID, TSH #### [facility] [address] [place] [address] Dr. Hugh Landis MCHC (RBC) [Mass/Vol] 31.7 g/dL Normal 29.9-35.2 [facility] Comment on above: Performed By: #### C MP, LIPID, TSH #### [facility] [address] [place] [address] Dr. Hugh Landis MCV (RBC) [Entitic vol] 92.0 fL Normal 80.0-94.0 [facility] Comment on above: Performed By: #### C MP, LIPID, TSH #### [facility] [address] [place] [address] Dr. Hugh Landis MONO # 0.5 103/ul Normal 0.3-0.8 [facility] Comment on above: Performed By: #### C MP, LIPID, TSH #### [facility] [address] [address] [address] Hugh Landis Monocytes/100 WBC (Bld) 9.6 % Normal 1.7-12.0 [facility] Comment on above: Performed By: #### C MP, LIPID, TSH #### [facility] [address] [address] [address] Hugh Landis NEUT # 3.0 103/ul Normal 1.4-6.5 [facility] Comment on above: Performed By: #### C MP, LIPID, TSH #### [facility] [address] [place] [address] Dr. Hugh Landis Neutrophils/100 WBC (Bld) 64.8 % Normal 43.0-75.0 [facility] Comment on above: Performed By: #### C MP, LIPID, TSH #### [facility] [address] [place] [address] Dr. Hugh Landis Platelet mean volume (Bld) [Entitic vol] 9.4 fL Critically low 9.5-13.5 [facility] Comment on above: Performed By: #### C MP, LIPID, TSH #### [facility] [address] [place] [address] Dr. Hugh Landis PLT 232 103/ul Normal 150-450 [facility] Comment on above: Performed By: #### C MP, LIPID, TSH #### [facility] [address] [place] [address] Dr. Hugh Landis RBC 4.25 106/ul Critically low 4.70-6.10 [facility] Comment on above: Performed By: #### C MP, LIPID, TSH #### [facility] [address] [place] [address] Dr. Hugh Landis WBC 4.7 103/ul Normal 4.0-11.0 [facility] Comment on above: Performed By: #### C MP, LIPID, TSH #### [facility] [address] [place] [address] Dr. Hugh Landis FREE THYROXINE INDEX T7on FTI 2.65 Normal 1.30-4.50 [facility] Comment on above: Performed By: #### B MP #### [facility] [address] [address] [address] Hugh Landis T3U 34.0 % Normal 33.0-40.0 [facility] Comment on above: Performed By: #### B MP #### [facility] [address] [address] [address] Hugh Landis T4 [Mass/Vol] 7.80 ug/dL Normal 4.50-12.10 [facility] Comment on above: Performed By: #### B MP #### [facility] [address] [place] [address] Dr. Hugh Landis GLYCOHEMOGLOBIN A1Con 2021 ADA RECOMMENDATION SEE BELOW Normal [facility] Comment on above: Result Comment: ADA RECOMMENDED LIMIT 4.0 - 6.0 ADA THERAPEUTIC TARGET < 7.0 ACTION SUGGESTED > 7.0 Performed By: #### C MP, LIPID, TSH #### [facility] [address] [place] [address] Dr. Hugh Landis Glucose [Mass/Vol] 123 mg/dL Normal [facility] Comment on above: Performed By: #### C MP, LIPID, TSH #### [facility] [address] [place] [address] Dr. Hugh Landis HbA1c (Bld) [Mass fraction] 5.9 % Normal 4.5-6.2 [facility] Comment on above: Performed By: #### C MP, LIPID, TSH #### [facility] [address] [place] [address] Dr. Hugh Landis LIPID PROFILEon 01-24-2022 CHOL-HDL RATIO NORM SEE BELOW Normal [facility] Comment on above: Result Comment: 3.3 - 4.4 LOW RISK 4.4 - 7.1 AVERAGE RISK 7.1 - 11.0 MODERATE RISK >11.0 HIGH RISK Performed By: #### U TOMAS, TSH, CMP, LIPID, T7 #### [facility] [address] [place] [address] Dr. Hugh Landis Cholesterol [Mass/Vol] 179 mg/dL Normal <=200 [facility] Comment on above: Performed By: #### U TOMAS, TSH, CMP, LIPID, T7 #### [facility] [address] [address] [address] Hugh Landis Cholesterol in HDL [Mass/Vol] 46 mg/dL Normal 40-60 [facility] Comment on above: Performed By: #### U TOMAS, TSH, CMP, LIPID, T7 #### [facility] [address] [address] [address] Hugh Landis Cholesterol in LDL [Mass/Vol] 100.4 mg/dL Normal [facility] Comment on above: Performed By: #### U TOMAS, TSH, CMP, LIPID, T7 #### [facility] [address] [address] [address] Hugh Landis Cholesterol.total/Ch olesterol in HDL [Mass ratio] 3.9 {ratio} Normal [facility] Comment on above: Performed By: #### U TOMAS, TSH, CMP, LIPID, T7 #### [facility] [address] [address] [address] Hugh Landis HDL NORMAL > or = 60 mg/dl - LO W CARDIOVASCULAR RISK <40 mg/dl - HIGH CARDIOVASCULAR RISK Normal [facility] Comment on above: Performed By: #### U TOMAS, TSH, CMP, LIPID, T7 #### [facility] [address] [address] [address] Hugh Landis LDL CALC NORMAL SEE BELOW Normal [facility] Comment on above: Result Comment: <100 mg/dl OPTIMAL 100 - 129 mg/dl NEAR OR ABOVE OPTIMAL 130 - 159 mg/dl BORDERLINE HIGH 160 - 189 mg/dl HIGH >190 mg/dl VERY HIGH Performed By: #### U TOMAS, TSH, CMP, LIPID, T7 #### [facility] [address] [address] [address] Hugh Landis Triglyceride [Mass/Vol] 163 mg/dL Critically high <=150 [facility] Comment on above: Performed By: #### U TOMAS, TSH, CMP, LIPID, T7 #### [facility] [address] [address] [address] Hugh Landis VLDL CALC 32.6 mg/dL Normal [facility] Comment on above: Performed By: #### U TOMAS, TSH, CMP, LIPID, T7 #### [facility] [address] [address] [address] Hugh Landis PROF 14(COMP METB)on 022 Albumin [Mass/Vol] 3.6 g/dL Normal 3.4-5.0 [facility] Comment on above: Performed By: #### U TOMAS, TSH, CMP, LIPID, T7 #### [facility] [address] [address] [address] Hugh Landis Albumin/Globulin [Mass ratio] 0.9 {ratio} Normal [facility] Comment on above: Performed By: #### U TOMAS, TSH, CMP, LIPID, T7 #### [facility] [address] [place] [address] Dr. Hugh Landis ALP [Catalytic activity/Vol] 81 U/L Normal 46-116 [facility] Comment on above: Performed By: #### U TOMAS, TSH, CMP, LIPID, T7 #### [facility] [address] [address] [address] Hugh Landis ALT [Catalytic activity/Vol] 19 U/L Normal 16-63 [facility] Comment on above: Performed By: #### U TOMAS, TSH, CMP, LIPID, T7 #### [facility] [address] [address] [address] Hugh Landis Anion gap [Moles/Vol] 13.4 mmol/L Normal [facility] Comment on above: Performed By: #### U TOMSA, TSH, CMP, LIPID, T7 #### [facility] [address] [address] [address] Hugh Landis AST [Catalytic activity/Vol] 16 U/L Normal 15-37 [facility] Comment on above: Performed By: #### U TOMAS, TSH, CMP, LIPID, T7 #### [facility] [address] [address] [address] Hugh Landis Bilirubin [Mass/Vol] 0.5 mg/dL Normal 0.2-1.0 [facility] Comment on above: Performed By: #### U TOMAS, TSH, CMP, LIPID, T7 #### [facility] [address] [address] [address] Hugh Landis Calcium [Mass/Vol] 9.7 mg/dL Normal 8.5-10.1 [facility] Comment on above: Performed By: #### U TOMAS, TSH, CMP, LIPID, T7 #### [facility] [address] [address] [address] Hugh Landis Chloride [Moles/Vol] 105 mmol/L Normal 98-107 [facility] Comment on above: Performed By: #### U TOMAS, TSH, CMP, LIPID, T7 #### [facility] [address] [address] [address] Hugh Landis CO2 [Moles/Vol] 27.4 mmol/L Normal 21.0-32.0 [facility] Comment on above: Performed By: #### U TOMAS, TSH, CMP, LIPID, T7 #### [facility] [address] [address] [address] Hugh Landis Creatinine [Mass/Vol] 1.37 mg/dL Critically high 0.70-1.30 [facility] Comment on above: Performed By: #### U TOMAS, TSH, CMP, LIPID, T7 #### [facility] [address] [place] [address] Dr. Hugh Landis EGFR-AF BHUTANESE >60 Normal >=60 [facility] Comment on above: Performed By: #### U TOMAS, TSH, CMP, LIPID, T7 #### [facility] [address] [address] [address] Hugh Landis EGFR-NON AF BHUTANESE 53 mL/min/1.73m2 Critically low >=60 [facility] Comment on above: Performed By: #### U TOMAS, TSH, CMP, LIPID, T7 #### [facility] [address] [address] [address] Hugh Landis Globulin (S) [Mass/Vol] 4.0 g/dL Normal [facility] Comment on above: Performed By: #### U TOMAS, TSH, CMP, LIPID, T7 #### [facility] [address] [address] [address] Hugh Landis Glucose [Mass/Vol] 113 mg/dL Critically high 74-106 [facility] Comment on above: Performed By: #### U TOMAS, TSH, CMP, LIPID, T7 #### [facility] [address] [place] [address] Dr. Hugh Landis Potassium [Moles/Vol] 3.8 mmol/L Normal 3.5-5.1 [facility] Comment on above: Performed By: #### U TOMAS, TSH, CMP, LIPID, T7 #### [facility] [address] [address] [address] Hugh Landis Protein [Mass/Vol] 7.6 g/dL Normal 6.4-8.[address] [facility] Comment on above: Performed By: #### U TOMAS, TSH, CMP, LIPID, T7 #### [facility] [address] [place] [address] Dr. Hugh Landis Sodium [Moles/Vol] 142 mmol/L Normal 136-[address] [facility] Comment on above: Performed By: #### U TOMAS, TSH, CMP, LIPID, T7 #### [facility] [address] [address] [address] Hugh Landis Urea nitrogen [Mass/Vol] 21.0 mg/dL Critically high 7.0-18.0 [facility] Comment on above: Performed By: #### U TOMAS, TSH, CMP, LIPID, T7 #### [facility] [address] [place] [address] Dr. Hugh Landis Urea nitrogen/Creatinine [Mass ratio] 15.3 mg/mg Normal [facility] Comment on above: Performed By: #### U TOMAS, TSH, CMP, LIPID, T7 #### [facility] [address] [place] [address] Dr. Hugh Landis TSHon 01-24-2022 TSH 0.663 uIU/mL Normal 0.358-3.740 [facility] Comment on above: Performed By: #### U TOMAS, TSH, CMP, LIPID, T7 #### [facility] [address] [place] [address] Dr. Hugh Landis URIC ACID SERUMon 01-24-2022 Urate [Mass/Vol] 6.9 mg/dL Normal 3.5-7.2 [facility] Comment on above: Performed By: #### B MP #### [facility] [address] [place] [address] Dr. Hugh Landis VITAMIN D 25 OHon 01-24-2022 VIT D 25-OH 37.0 ng/mL Normal [facility] Comment on above: Performed By: #### P TT #### [facility] [address] [place] [address] Dr. Hugh Landis VIT D RANGES SEE BELOW Normal [facility] Comment on above: Result Comment: <20 ng/mL Vit D deficient 20 - <30 ng/mL Vit D insufficient 30 - 100 ng/mL Vit D sufficient >100 ng/mL Potential Toxicity Performed By: #### P TT #### [facility] [address] [place] [address] Dr. Hugh Landis US KIDNEYSon 12-21-2021 US [...] by: OBIE TSE Date: 2021-12-21 17:34 Normal [facility] XR ABD FLAT UP_PA Barrett [...] by: AUSTIN LARIOS Date: 2021-12-21 18:13 Normal [facility] Urine culture routineOrdered By: Estephanie Lowry on 12-17-2021 Bacteria identified Cx Nom (U) No Growth 2 Days [facility] Chlamydia trachomatis DNA [P resence] in Specimen by MUKUL with probe detectionOrdered By: Estephanie Lowry on 12-15-2021 C. trachomatis DNA MUKUL+probe Ql (Unsp spec) Negative Negative [facility] Chlamydia/GC/Trich NAAon Chlamydia Trachomotis, MUKUL Negative Normal Negative [facility] Comment on above: Order Comment: Reaso n for Exam Dysuria Performed By: #### G CCHLAMTRI #### [facility] , #### CUU #### [facility] [address] [place] [address] [place] Neisseria Gonorrhoeae, MUKUL Negative Normal Negative [facility] Comment on above: Order Comment: Reaso n for Exam Dysuria Performed By: #### G CCHLAMTRI #### [facility] , #### CUU #### [facility] [address] [place] [address] [place] Trichomonas MUKUL Negative Normal Negative [facility] Comment on above: Order Comment: Reaso n for Exam Dysuria Result Comment: Perf ormed at: =G - [facility] [address] [id number] Technology Lead: Shoshana Camargo MD, Phone: [phone] PERFORMED BY: [place] [address] PATHOLOGIST POLE CLIMBER SABRA SAUNDERS M.D. Performed By: #### G CCHLAMTRI #### [facility] , #### CUU #### [address] Chlamydia/GC/Trich MUKUL Negative Negative [facility] Other Neisseria gonorrhoeae DNA [P resence] in Specimen by MUKUL with probe detectionOrdered By: Estephanie Lowry on 12-15-2021 N. gonorrhoeae DNA MUKUL+probe Ql (Unsp spec) Negative Negative [facility] Trichomonas vaginalis DNA [P resence] in Specimen by MUKUL with probe detectionOrdered By: Estephanie Lowry on 12-15-2021 T. vaginalis DNA MUKUL+probe Ql (Unsp spec) Negative Negative [facility] Comment on above: Performed at: = - [facility] [address] [id number] Director: Shoshana Camargo MD, Phone: [phone] Urinalysis - AUTOMATEDon Appearance (U) clear [facility] Other Bilirubin Ql (U) Negative [facility] Other Color (U) orange [facility] Other Glucose Ql (U) Negative [facility] Other Hemoglobin Ql (U) moderate K[facility] Other Ketones Ql (U) Negative [facility] Other Leukocyte esterase Test strip Ql (U) Negative [facility] Other Nitrite Ql (U) Positive [facility] Other pH (U) 5.5 [pH] [facility] Other Protein Ql (U) Negative [facility] Other Specific gravity (U) [Rel density] 1.015 [facility] Other Urobilinogen (U) [Mass/Vol] 0.2 mg/dL [facility] Other Urinalysis - AUTOMATED [facility] Other Urine Cultureon 12-15-2021 Bacteria identified Cx Nom (U) Reason for Exam Dysuria Urine No Growth 2 Days PERFORMED BY: [place] [address] PATHOLOGIST POLE CLIMBER SABRA SAUNDERS M.D. Normal [facility] Comment on above: Performed By: #### G CCHLAMTRI #### [facility] , #### CUU #### [facility] [address] [place] [address] Bacteria identified Cx Nom (U) [facility] Other CULTURE URINEon 11-24-2021 CULTURE URINE Culture Observations : NO GROWTH. Normal [facility] Comment on above: Performed By: #### B MP #### [facility] [address] [place] [address] Dr. Hugh Landis PROTEIN ELECTROPHERESIS URIN E RANDOMon 11-17-2021 Albumin, U 33.4 % Normal [facility] Comment on above: Performed By: #### C MP, LIPID, TSH #### [facility] [address] [address] [address] Hugh Landis Alpha-1 Globulin U 4.7 % Normal [facility] Comment on above: Performed By: #### C MP, LIPID, TSH #### [facility] [address] [address] [address] Hugh Landis Alpha-2 Glubulin U 18.6 % Normal [facility] Comment on above: Performed By: #### C MP, LIPID, TSH #### [facility] [address] [address] [address] Hugh Landis Beta Globulin, U 19.9 % Normal [facility] [place] [facility] Comment on above: Performed By: #### C MP, LIPID, TSH #### [facility] [address] [place] [address] Dr. Hugh Landis Gamma Globulin U 23.4 % Normal [facility] [place] [facility] Comment on above: Performed By: #### C MP, LIPID, TSH #### [facility] [address] [place] [address] Dr. Hugh Landis M-Tariq, % Not Observed Normal Not Observed [facility] Comment on above: Performed By: #### C MP, LIPID, TSH #### [facility] [address] [place] [address] Dr. Hugh Landis PDF . Normal [facility] Comment on above: Performed By: #### C MP, LIPID, TSH #### [facility] [address] [place] [address] Dr. Hugh Landis Please note: Comment Normal [facility] Comment on above: Result Comment: Prot ein electrophoresis scan will follow via computer, mail, or diplomatic courier delivery. Performed By: #### C MP, LIPID, TSH #### [facility] [address] [place] [address] Dr. Hugh Landis Protein (U) [Mass/Vol] 4.9 mg/dL Normal Not Estab. [facility] Comment on above: Performed By: #### C MP, LIPID, TSH #### [facility] [address] [place] [address] Dr. Hugh Landis IMMUNOFIXATION(PRINCE),PROTEIN ELEC(PE),FREon 11-16-2021 Albumin [Mass/Vol] 3.4 g/dL Normal 2.9-4.[address] [facility] Comment on above: Performed By: #### C MP, LIPID, TSH #### [facility] [address] [place] [address] Dr. Hugh Landis Albumin/Globulin [Mass ratio] 1.0 {ratio} Normal 0.7-1.7 [facility] Comment on above: Performed By: #### C MP, LIPID, TSH #### [facility] [address] [address] [address] Hugh Landis Vqald-1-Oczphcwj 0.2 g/dL Normal 0.0-0.4 [facility] [place] [facility] Comment on above: Performed By: #### C MP, LIPID, TSH #### [facility] [address] [address] [address] Hugh Landis Wxufi-1-Toantqlk 1.1 g/dL Critically high 0.4-1.0 [facility] Comment on above: Performed By: #### C MP, LIPID, TSH #### [facility] [address] [address] [address] Hugh Landis Beta Globulin 1.0 g/dL Normal 0.7-1.3 [facility] Comment on above: Performed By: #### C MP, LIPID, TSH #### [facility] [address] [address] [address] Hugh Landis Free [place] Lt Chains,S 35.7 mg/L Critically high 3.3-19.4 [facility] Comment on above: Performed By: #### C MP, LIPID, TSH #### [facility] [address] [address] [address] Hugh Landis Free Lambda Lt Chains,S 21.1 mg/L Normal 5.7-26.3 [facility] Comment on above: Performed By: #### C MP, LIPID, TSH #### [facility] [address] [address] [address] Hugh Landis Gamma Globulin 1.2 g/dL Normal 0.4-1.8 [facility] Comment on above: Performed By: #### C MP, LIPID, TSH #### [facility] [address] [address] [address] Hugh Landis Globulin (S) [Mass/Vol] 3.5 g/dL Normal 2.2-3.9 [facility] Comment on above: Performed By: #### C MP, LIPID, TSH #### [facility] [address] [address] [address] Hugh Landis Immunofixation Result, Serum Comment Normal [facility] Comment on above: Result Comment: No m onoclonality detected. Performed By: #### C MP, LIPID, TSH #### [facility] [address] [address] [address] Hugh Landis Immunoglobulin A, Qn, Serum 228 mg/dL Normal 90-386 [facility] Comment on above: Performed By: #### C MP, LIPID, TSH #### [facility] [address] [address] [address] Hugh Landis Immunoglobulin G, Qn, Serum 1221 mg/dL Normal 603-1613 [facility] Comment on above: Performed By: #### C MP, LIPID, TSH #### [facility] [address] [address] [address] Hugh Landis Immunoglobulin M, Qn, Serum 79 mg/dL Normal 20-172 [facility] Comment on above: Performed By: #### C MP, LIPID, TSH #### [facility] [address] [address] [address] Hugh Landis [place]/Lambda Ratio, S 1.69 Critically high 0.26-1.65 [facility] Comment on above: Performed By: #### C MP, LIPID, TSH #### [facility] [address] [address] [address] Hugh Landis M-Tariq Not Observed Normal Not Observed [facility] Comment on above: Performed By: #### C MP, LIPID, TSH #### [facility] [address] [address] [address] Hugh Landis PDF . Normal [facility] Comment on above: Performed By: #### C MP, LIPID, TSH #### [facility] [address] [address] [address] Hugh Landis Please note: Comment Normal [facility] Comment on above: Result Comment: Prot ein electrophoresis scan will follow via computer, mail, or diplomatic courier delivery. Performed By: #### C MP, LIPID, TSH #### [facility] [address] [address] [address] Hugh Landis Protein [Mass/Vol] 6.9 g/dL Normal 6.0-8.[address] [facility] Comment on above: Performed By: #### C MP, LIPID, TSH #### [facility] [address] [place] [address] Dr. Hugh Landis PROTEIN AND CREA RANDOM UR R ATIOon 11-16-2021 Creatinine, Urine 54.8 mg/dL Normal Not Estab. [facility] Comment on above: Performed By: #### C MP, LIPID, TSH #### [facility] [address] [place] [address] Dr. Hugh Landis Protein (U) [Mass/Vol] 4.1 mg/dL Normal Not Estab. [facility] Comment on above: Performed By: #### C MP, LIPID, TSH #### [facility] [address] [place] [address] Dr. Hugh Landis Protein/Creat Ratio 75 mg/g creat Normal 0-200 [facility] Comment on above: Performed By: #### C MP, LIPID, TSH #### [facility] [address] [place] [address] Dr. Hugh Landis PTH INTACTon 11-15-2021 PTH, Intact 39 pg/mL Normal 15-65 [facility] Comment on above: Performed By: #### P T #### [facility] [address] [place] [address] Dr. Hugh Landis UA RANDOM W/MICROSCOPICon BACTERIA NONE SEEN Normal NONE SEEN [facility] Comment on above: Performed By: #### P TT #### [facility] [address] [place] [address] Dr. Hugh Landis Bilirubin Ql (U) Negative Normal NEGATIVE [facility] [facility] Comment on above: Performed By: #### P TT #### [facility] [address] [place] [address] Dr. Hugh Landis CAST NONE SEEN Normal NONE SEEN [facility] Comment on above: Performed By: #### P TT #### [facility] [address] [place] [address] Dr. Hugh Landis Clarity (U) CLEAR Normal CLEAR [facility] Comment on above: Performed By: #### P TT #### [facility] [address] [place] [address] Dr. Hugh Landis Color (U) LT. YELLOW Normal YELLOW [facility] Comment on above: Performed By: #### P TT #### [facility] [address] [address] [address] Hugh Landis Crystals LM Nom (Urine sed) NONE SEEN Normal NONE SEEN [facility] Comment on above: Performed By: #### P TT #### [facility] [address] [place] [address] Dr. Hugh Landis Epithelial cells LM Ql (Urine sed) NONE SEEN Normal NONE SEEN /RARE [facility] Comment on above: Performed By: #### P TT #### [facility] [address] [place] [address] Dr. Hugh Landis Glucose Ql (U) Negative Normal NEGATIVE [facility] Comment on above: Performed By: #### P TT #### [facility] [address] [place] [address] Dr. Hugh Landis Hemoglobin Ql (U) MODERATE Abnormal NEGATIVE [facility] Comment on above: Performed By: #### P TT #### [facility] [address] [place] [address] Dr. Hugh Landis Ketones Ql (U) Negative Normal NEGATIVE [facility] Comment on above: Performed By: #### P TT #### [facility] [address] [place] [address] Dr. Hugh Landis LEUKOCYTES Negative Normal NEGATIVE [facility] Comment on above: Performed By: #### P TT #### [facility] [address] [place] [address] Dr. Hugh Landis MUCOUS NONE SEEN Normal NONE SEEN [facility] Comment on above: Performed By: #### P TT #### [facility] [address] [place] [address] Dr. Hugh Landis Nitrite Ql (U) Negative Normal NEGATIVE [facility] Comment on above: Performed By: #### P TT #### [facility] [address] [place] [address] Dr. Hugh Landis pH (U) 5.5 [pH] Normal 5-9 [facility] Comment on above: Performed By: #### P TT #### [facility] [address] [place] [address] Dr. Hugh Landis RBC 5-10 Abnormal 0-2 [facility] Comment on above: Performed By: #### P TT #### [facility] [address] [place] [address] Dr. Hugh Landis SPEC GRAVITY 1.010 Normal 1.005-<=1.02 5 [facility] Comment on above: Performed By: #### P TT #### [facility] [address] [place] [address] Dr. Hugh Landis UA PROTEIN Negative Normal NEGATIVE/ TRACE [facility] Comment on above: Performed By: #### P TT #### [facility] [address] [place] [address] Dr. Hugh Landis Urobilinogen Qn (U) 0.2 {Dahiana'U}/dL Normal 0.2 - 1. 0 [facility] Comment on above: Performed By: #### P TT #### [facility] [address] [place] [address] Dr. Hugh Landis WBC 0-2 Abnormal NONE SEEN [facility] Comment on above: Performed By: #### P TT #### [facility] [address] [place] [address] Dr. Hugh Landis URINE T PROTEIN CREAT RATIOo n 11-15-2021 Protein (U) [Mass/Vol] 10.0 mg/dL Normal <=12.0 [facility] Comment on above: Performed By: #### B MP #### [facility] [address] [place] [address] Dr. Hugh Landis UR PROT CREAT RAT 0.18 Normal [facility] Comment on above: Performed By: #### B MP #### [facility] [address] [place] [address] Dr. Hugh Landis URINE CREAT 57.11 mg/dL Normal 20.00-300.00 [facility] Comment on above: Performed By: #### B MP #### [facility] [address] [address] [address] Hugh Landis FERRITINon 11-14-2021 Ferritin [Mass/Vol] 95.0 ng/mL Normal 26.0-388.0 [facility] Comment on above: Performed By: #### C MP, LIPID, TSH #### [facility] [address] [address] [address] Hugh Landis HEMOGRAM AND PLATELon 2021 Hematocrit (Bld) [Volume fraction] 35.7 % Critically low 42.0-54.0 [facility] Comment on above: Performed By: #### U TOMAS, TSH, CMP, LIPID, T7 #### [facility] [address] [address] [address] Hugh Landis Hemoglobin (Bld) [Mass/Vol] 11.5 g/dL Critically low 14.0-18.0 [facility] Comment on above: Performed By: #### U TOMAS, TSH, CMP, LIPID, T7 #### [facility] [address] [address] [address] Hugh Landis MCH (RBC) [Entitic mass] 30.3 pg Normal 25.9-34.0 [facility] Comment on above: Performed By: #### U TOMAS, TSH, CMP, LIPID, T7 #### [facility] [address] [place] [address] Dr. Hugh Landis MCHC (RBC) [Mass/Vol] 32.2 g/dL Normal 29.9-35.2 [facility] Comment on above: Performed By: #### U TOMAS, TSH, CMP, LIPID, T7 #### [facility] [address] [address] [address] Hugh Landis MCV (RBC) [Entitic vol] 93.9 fL Normal 80.0-94.0 [facility] Comment on above: Performed By: #### U TOMAS, TSH, CMP, LIPID, T7 #### [facility] [address] [address] [address] Hugh Landis PLT 254 103/ul Normal 150-450 [facility] Comment on above: Performed By: #### U TOMAS, TSH, CMP, LIPID, T7 #### [facility] [address] [address] [address] Hugh Landis RBC 3.80 106/ul Critically low 4.70-6.10 [facility] Comment on above: Performed By: #### U TOMAS, TSH, CMP, LIPID, T7 #### [facility] [address] [address] [address] Hugh Landis WBC 6.4 103/ul Normal 4.0-11.0 [facility] Comment on above: Performed By: #### U TOMAS, TSH, CMP, LIPID, T7 #### [facility] [address] [place] [address] Dr. Hugh Landis IRON AND TIBCon 11-14-2021 % SATURATION 27.6 % Normal [facility] Comment on above: Performed By: #### C MP, LIPID, TSH #### [facility] [address] [address] [address] Hugh Landis Iron [Mass/Vol] 68.0 ug/dL Normal 65.0-175.0 [facility] Comment on above: Performed By: #### C MP, LIPID, TSH #### [facility] [address] [place] [address] Dr. Hugh Landis TIBC DIRECT 246.0 ug/dL Critically low 250.0-450.0 [facility] Comment on above: Performed By: #### C MP, LIPID, TSH #### [facility] [address] [place] [address] Dr. Hugh Landis MAGNESIUMon 11-14-2021 Magnesium [Mass/Vol] 1.8 mg/dL Normal 1.8-2.4 [facility] Comment on above: Performed By: #### U TOMAS, TSH, CMP, LIPID, T7 #### [facility] [address] [place] [address] Dr. Hugh Landis RENAL FUNCTION PANELon 11-14 Albumin [Mass/Vol] 3.4 g/dL Normal 3.4-5.0 [facility] Comment on above: Performed By: #### U TOMAS, TSH, CMP, LIPID, T7 #### [facility] [address] [address] [address] Hugh Landis Calcium [Mass/Vol] 9.1 mg/dL Normal 8.5-10.1 [facility] Comment on above: Performed By: #### U TOMAS, TSH, CMP, LIPID, T7 #### [facility] [address] [address] [address] Hugh Landis Chloride [Moles/Vol] 105 mmol/L Normal 98-107 [facility] Comment on above: Performed By: #### U TOMAS, TSH, CMP, LIPID, T7 #### [facility] [address] [address] [address] Hugh Landis CO2 [Moles/Vol] 29.2 mmol/L Normal 21.0-32.0 [facility] Comment on above: Performed By: #### U TOMAS, TSH, CMP, LIPID, T7 #### [facility] [address] [address] [address] Hugh Landis Creatinine [Mass/Vol] 1.62 mg/dL Critically high 0.70-1.30 [facility] Comment on above: Performed By: #### U TOMAS, TSH, CMP, LIPID, T7 #### [facility] [address] [address] [address] Hugh Landis EGFR-AF BHUTANESE 53 mL/min/1.73m2 Critically low >=60 [facility] Comment on above: Performed By: #### U TOMAS, TSH, CMP, LIPID, T7 #### [facility] [address] [address] [address] Hugh Landis EGFR-NON AF BHUTANESE 44 mL/min/1.73m2 Critically low >=60 [facility] Comment on above: Performed By: #### U TOMAS, TSH, CMP, LIPID, T7 #### [facility] [address] [address] [address] Hugh Landis Glucose [Mass/Vol] 136 mg/dL Critically high 74-106 [facility] Comment on above: Performed By: #### U TOMAS, TSH, CMP, LIPID, T7 #### [facility] [address] [address] [address] Hugh Landis Phosphate [Mass/Vol] 2.8 mg/dL Normal 2.6-4.7 [facility] Comment on above: Performed By: #### U TOMAS, TSH, CMP, LIPID, T7 #### [facility] [address] [address] [address] Hugh Landis Potassium [Moles/Vol] 3.1 mmol/L Critically low 3.5-5.1 [facility] Comment on above: Performed By: #### U TOMAS, TSH, CMP, LIPID, T7 #### [facility] [address] [address] [address] Hugh Landis Sodium [Moles/Vol] 141 mmol/L Normal 136-145 [facility] Comment on above: Performed By: #### U TOMAS, TSH, CMP, LIPID, T7 #### [facility] [address] [address] [address] Hugh Landis Urea nitrogen [Mass/Vol] 19.0 mg/dL Critically high 7.0-18.0 [facility] Comment on above: Performed By: #### U TOMAS, TSH, CMP, LIPID, T7 #### [facility] [address] [address] [address] Hugh Landis URIC ACID SERUMon 11-14-2021 Urate [Mass/Vol] 8.7 mg/dL Critically high 3.5-7.2 [facility] Comment on above: Performed By: #### U TOMAS, TSH, CMP, LIPID, T7 #### [facility] [address] [address] [address] Hugh Landis VIT B12 AND FOLATEon 022 Cobalamin (Vitamin B12) [Mass/Vol] 373.0 pg/mL Normal 193.0-986.0 [facility] Comment on above: Performed By: #### U TOMAS, TSH, CMP, LIPID, T7 #### [facility] [address] [place] [address] Dr. Hugh Landis FOLATE 14.00 ng/mL Normal 8.60-58.90 [facility] Comment on above: Performed By: #### U TOMAS, TSH, CMP, LIPID, T7 #### [facility] [address] [place], [place] [address] Dr. Hugh Landis VITAMIN D 25 OHon 11-14-2021 VIT D 25-OH 33.8 ng/mL Normal [facility] Comment on above: Performed By: #### U TOMAS, TSH, CMP, LIPID, T7 #### [facility] [address] [address] [address] Hugh Landis VIT D RANGES SEE BELOW Normal [facility] Comment on above: Result Comment: <20 ng/mL Vit D deficient 20 - <30 ng/mL Vit D insufficient 30 - 100 ng/mL Vit D sufficient >100 ng/mL Potential Toxicity Performed By: #### U TOMAS, TSH, CMP, LIPID, T7 #### [facility] [address] [place], [place] [address] Dr. Hugh Landis US KIDNEYS BLADDERon 022 [...] AUSTIN LARIOS Date: 2021-11-01 16:44 Normal [facility] XR CHEST 2 Von 11-01-2021 XR [...] by: OBIE TSE Date: 2021-11-01 06:[address] [facility] LUNG VENT_PERFon 11-01-19 22 NM LUNG VENT_PERF EXAM: [place] LUNG VENT_PERF HISTORY: Dyspnea COMPARISON: Chest x-ray 10/31/2021 TECHNIQUE: 6.1 mCi technetium MAA. 24.9 mCi technetium DTPA. FINDINGS: Perfusion images demonstrate no segmental perfusion defects to suggest acute pulmonary embolism Ventilation images are normal without ventilation defects. IMPRESSION: Normal ventilation/perfusion scan Electronically authenticated by: JASPER SCHRADER Date: 2021-10-31 12:35 Normal [facility] PROF CHEM 8 (BAS METB)on Anion gap [Moles/Vol] 17.5 mmol/L Normal [facility] Comment on above: Performed By: #### B MP #### [facility] [address] [address] [address] Hugh Landis Calcium [Mass/Vol] 9.4 mg/dL Normal 8.5-10.1 [facility] Comment on above: Performed By: #### B MP #### [facility] [address] [address] [address] Hugh Landis Chloride [Moles/Vol] 100 mmol/L Normal 98-107 [facility] Comment on above: Performed By: #### B MP #### [facility] [address] [address] [address] Hugh Landis CO2 [Moles/Vol] 22.8 mmol/L Normal 21.0-32.0 [facility] Comment on above: Performed By: #### B MP #### [facility] [address] [address] [address] Hugh Landis Creatinine [Mass/Vol] 2.69 mg/dL Critically high 0.70-1.30 [facility] Comment on above: Performed By: #### B MP #### [facility] [address] [address] [address] Hugh Landis EGFR-AF BHUTANESE 30 mL/min/1.73m2 Critically low >=60 [facility] Comment on above: Performed By: #### B MP #### [facility] [address] [address] [address] Hugh Landis EGFR-NON AF BHUTANESE 24 mL/min/1.73m2 Critically low >=60 [facility] Comment on above: Performed By: #### B MP #### [facility] [address] [address] [address] Hugh Landis Glucose [Mass/Vol] 117 mg/dL Critically high 74-106 [facility] Comment on above: Performed By: #### B MP #### [facility] [address] [address] [address] Hugh Landis Potassium [Moles/Vol] 4.3 mmol/L Normal 3.5-5.1 [facility] Comment on above: Performed By: #### B MP #### [facility] [address] [address] [address] Hugh Landis Sodium [Moles/Vol] 136 mmol/L Normal 136-145 [facility] Comment on above: Performed By: #### B MP #### [facility] [address] [address] [address] Hugh Landis Urea nitrogen [Mass/Vol] 41.0 mg/dL Critically high 7.0-18.0 [facility] Comment on above: Performed By: #### B MP #### [facility] [address] [address] [address] Hugh Landis Urea nitrogen/Creatinine [Mass ratio] 15.2 mg/mg Normal [facility] Comment on above: Performed By: #### B MP #### [facility] [address] [address] [address] Hugh Landis CBC AUTO DIFFon 10-16-2021 BASO # 0.0 103/ul Normal 0.0-0.1 [facility] Comment on above: Performed By: #### P T #### [facility] [address] [address] [address] Hugh Landis Basophils/100 WBC (Bld) 0.6 % Normal 0.2-2.0 [facility] Comment on above: Performed By: #### P T #### [facility] [address] [address] [address] Hugh Landis EO # 0.2 103/ul Normal 0.0-0.7 [facility] Comment on above: Performed By: #### P T #### [facility] [address] [address] [address] Hugh Landis Eosinophils/100 WBC (Bld) 2.3 % Normal 0.9-7.0 [facility] Comment on above: Performed By: #### P T #### [facility] [address] [place] [address] Dr. Hugh Landis Erythrocyte distribution width (RBC) [Ratio] 12.7 % Normal 11.0-15.0 [facility] Comment on above: Performed By: #### P T #### [facility] [address] [place] [address] Dr. Hugh Landis Hematocrit (Bld) [Volume fraction] 36.2 % Critically low 42.0-54.0 [facility] Comment on above: Performed By: #### P T #### [facility] [address] [address] [address] Hugh Landis Hemoglobin (Bld) [Mass/Vol] 11.5 g/dL Critically low 14.0-18.0 [facility] Comment on above: Performed By: #### P T #### [facility] [address] [address] [address] Hugh Landis IG # 0.02 10e3/ul Normal 0.00-0.03 [facility] Comment on above: Performed By: #### P T #### [facility] [address] [address] [address] Hugh Landis IG % 0.3 % Normal 0.0-0.5 [facility] Comment on above: Performed By: #### P T #### [facility] [address] [place] [address] Dr. Hugh Landis LYMPH # 1.4 103/ul Normal 1.2-3.8 [facility] Comment on above: Performed By: #### P T #### [facility] [address] [place] [address] Dr. Hugh Landis Lymphocytes/100 WBC (Bld) 21.3 % Normal 20.5-60.0 [facility] Comment on above: Performed By: #### P T #### [facility] [address] [place] [address] Dr. Hugh Landis MANUAL DIFF REQ NO Normal [facility] Comment on above: Performed By: #### P T #### [facility] [address] [place] [address] Dr. Hugh Landis MCH (RBC) [Entitic mass] 29.6 pg Normal 25.9-34.0 [facility] Comment on above: Performed By: #### P T #### [facility] [address] [place] [address] Dr. Hugh Landis MCHC (RBC) [Mass/Vol] 31.8 g/dL Normal 29.9-35.2 [facility] Comment on above: Performed By: #### P T #### [facility] [address] [place] [address] Dr. Hugh Landis MCV (RBC) [Entitic vol] 93.1 fL Normal 80.0-94.0 [facility] Comment on above: Performed By: #### P T #### [facility] [address] [place] [address] Dr. Hugh Landis MONO # 0.8 103/ul Normal 0.3-0.8 [facility] Comment on above: Performed By: #### P T #### [facility] [address] [place] [address] Dr. Hugh Landis Monocytes/100 WBC (Bld) 11.5 % Normal 1.7-12.0 [facility] Comment on above: Performed By: #### P T #### [facility] [address] [place] [address] Dr. Hugh Landis NEUT # 4.2 103/ul Normal 1.4-6.5 [facility] Comment on above: Performed By: #### P T #### [facility] [address] [address] [address] Hugh Landis Neutrophils/100 WBC (Bld) 64.0 % Normal 43.0-75.0 [facility] Comment on above: Performed By: #### P T #### [facility] [address] [place] [address] Dr. Hugh Landis Platelet mean volume (Bld) [Entitic vol] 9.2 fL Critically low 9.5-13.5 [facility] Comment on above: Performed By: #### P T #### [facility] [address] [place] [address] Dr. Hugh Landis PLT 241 103/ul Normal 150-450 [facility] Comment on above: Performed By: #### P T #### [facility] [address] [place] [address] Dr. Hugh Landis RBC 3.89 106/ul Critically low 4.70-6.10 [facility] Comment on above: Performed By: #### P T #### [facility] [address] [place] [address] Dr. Hugh Landis WBC 6.5 103/ul Normal 4.0-11.0 [facility] Comment on above: Performed By: #### P T #### [facility] [address] [place] [address] Dr. Hugh Landis [facility] SARS-CoV-2 (COVID-19) RNA MUKUL+probe Ql (Unsp spec) Not detected Normal NOT DETECTED [facility] Comment on above: Result Comment: This test is not yet approved or cleared by the [place] FDA. When there are no FDA-approved or cleared tests available, and other criteria are met, FDA can make tests available under an emergency access mechanism called an Emergency Use Authorization (EUA). The EUA for this test is supported by the [place] of Health and Human Service's (HHS's) declaration [...] U TOMAS, TSH, CMP, LIPID, T7 #### [facility] [address] [place] [address] Dr. Hugh Landis PROF CHEM 8 (BAS METB)on Anion gap [Moles/Vol] 16.3 mmol/L Normal [facility] Comment on above: Performed By: #### C MP, LIPID, TSH #### [facility] [address] [place] [address] Dr. Hugh Landis Calcium [Mass/Vol] 9.6 mg/dL Normal 8.5-10.1 [facility] Comment on above: Performed By: #### C MP, LIPID, TSH #### [facility] [address] [place] [address] Dr. Hugh Landis Chloride [Moles/Vol] 103 mmol/L Normal 98-107 [facility] Comment on above: Performed By: #### C MP, LIPID, TSH #### [facility] [address] [place] [address] Dr. Hugh Landis CO2 [Moles/Vol] 21.9 mmol/L Normal 21.0-32.0 [facility] [facility] Comment on above: Performed By: #### C MP, LIPID, TSH #### [facility] [address] [place] [address] Dr. Hugh Landis Creatinine [Mass/Vol] 3.58 mg/dL Critically high 0.70-1.30 [facility] Comment on above: Performed By: #### C MP, LIPID, TSH #### [facility] [address] [address] [address] Hugh Landis EGFR-AF BHUTANESE 21 mL/min/1.73m2 Critically low >=60 [facility] Comment on above: Performed By: #### C MP, LIPID, TSH #### [facility] [address] [address] [address] Hugh Landis EGFR-NON AF BHUTANESE 18 mL/min/1.73m2 Critically low >=60 [facility] Comment on above: Performed By: #### C MP, LIPID, TSH #### [facility] [address] [address] [address] Hugh Landis Glucose [Mass/Vol] 115 mg/dL Critically high 74-106 [facility] Comment on above: Performed By: #### C MP, LIPID, TSH #### [facility] [address] [place] [address] Dr. Hugh Landis Potassium [Moles/Vol] 5.2 mmol/L Critically high 3.5-5.1 [facility] Comment on above: Performed By: #### C MP, LIPID, TSH #### [facility] [address] [address] [address] Hugh Landis Sodium [Moles/Vol] 136 mmol/L Normal 136-145 [facility] Comment on above: Performed By: #### C MP, LIPID, TSH #### [facility] [address] [address] [address] Hugh Landis Urea nitrogen [Mass/Vol] 54.0 mg/dL Critically high 7.0-18.0 [facility] Comment on above: Performed By: #### C MP, LIPID, TSH #### [facility] [address] [place] [address] Dr. Hugh Landis Urea nitrogen/Creatinine [Mass ratio] 15.1 mg/mg Normal [facility] Comment on above: Performed By: #### C MP, LIPID, TSH #### [facility] [address] [address] [address] Hugh Landis MRSA COLONIZATION SCREENING CULTUREon 10-09-2021 MRSA Screening Culture Negative Normal [facility] Comment on above: Performed By: #### C MP, LIPID, TSH #### [facility] [address] [place] [address] Dr. Hugh Landis CBC AUTO DIFFon 10-06-2021 BASO # 0.0 103/ul Normal 0.0-0.1 [facility] Comment on above: Performed By: #### U TOMAS, TSH, CMP, LIPID, T7 #### [facility] [address] [address] [address] Hugh Landis Basophils/100 WBC (Bld) 0.3 % Normal 0.2-2.0 [facility] Comment on above: Performed By: #### U TOMAS, TSH, CMP, LIPID, T7 #### [facility] [address] [place] [address] Dr. Hugh Landis EO # 0.1 103/ul Normal 0.0-0.7 [facility] Comment on above: Performed By: #### U TOMAS, TSH, CMP, LIPID, T7 #### [facility] [address] [place] [address] Dr. Hugh Landis Eosinophils/100 WBC (Bld) 2.3 % Normal 0.9-7.0 [facility] Comment on above: Performed By: #### U TOMAS, TSH, CMP, LIPID, T7 #### [facility] [address] [place] [address] Dr. Hugh Landis Erythrocyte distribution width (RBC) [Ratio] 13.3 % Normal 11.0-15.0 [facility] Comment on above: Performed By: #### U TOMAS, TSH, CMP, LIPID, T7 #### [facility] [address] [place] [address] Dr. Hugh Landis Hematocrit (Bld) [Volume fraction] 36.5 % Critically low 42.0-54.0 [facility] Comment on above: Performed By: #### U TOMAS, TSH, CMP, LIPID, T7 #### [facility] [address] [place] [address] Dr. Hugh Landis Hemoglobin (Bld) [Mass/Vol] 11.7 g/dL Critically low 14.0-18.0 [facility] Comment on above: Performed By: #### U TOMAS, TSH, CMP, LIPID, T7 #### [facility] [address] [place] [address] Dr. Hugh Landis IG # 0.02 10e3/ul Normal 0.00-0.03 [facility] Comment on above: Performed By: #### U TOMAS, TSH, CMP, LIPID, T7 #### [facility] [address] [place] [address] Dr. Hugh Landis IG % 0.3 % Normal 0.0-0.5 [facility] Comment on above: Performed By: #### U TOMAS, TSH, CMP, LIPID, T7 #### [facility] [address] [place] [address] Dr. Hugh Landis LYMPH # 1.3 103/ul Normal 1.2-3.8 [facility] Comment on above: Performed By: #### U TOMAS, TSH, CMP, LIPID, T7 #### [facility] [address] [place] [address] Dr. Hugh Landis Lymphocytes/100 WBC (Bld) 21.9 % Normal 20.5-60.0 [facility] Comment on above: Performed By: #### U TOMAS, TSH, CMP, LIPID, T7 #### [facility] [address] [place] [address] Dr. Hugh Landis MANUAL DIFF REQ NO Normal [facility] Comment on above: Performed By: #### U TOMAS, TSH, CMP, LIPID, T7 #### [facility] [address] [place] [address] Dr. Hugh Landis MCH (RBC) [Entitic mass] 29.7 pg Normal 25.9-34.0 [facility] Comment on above: Performed By: #### U TOMAS, TSH, CMP, LIPID, T7 #### [facility] [address] [place] [address] Dr. Hugh Landis MCHC (RBC) [Mass/Vol] 32.1 g/dL Normal 29.9-35.2 [facility] Comment on above: Performed By: #### U TOMAS, TSH, CMP, LIPID, T7 #### [facility] [address] [place] [address] Dr. Hugh Landis MCV (RBC) [Entitic vol] 92.6 fL Normal 80.0-94.0 [facility] Comment on above: Performed By: #### U TOMAS, TSH, CMP, LIPID, T7 #### [facility] [address] [place] [address] Dr. Hugh Landis MONO # 0.7 103/ul Normal 0.3-0.8 [facility] Comment on above: Performed By: #### U TOMAS, TSH, CMP, LIPID, T7 #### [facility] [address] [place] [address] Dr. Hugh Landis Monocytes/100 WBC (Bld) 11.3 % Normal 1.7-12.0 [facility] Comment on above: Performed By: #### U TOMAS, TSH, CMP, LIPID, T7 #### [facility] [address] [place] [address] Dr. Hugh Landis NEUT # 3.7 103/ul Normal 1.4-6.5 [facility] Comment on above: Performed By: #### U TOMAS, TSH, CMP, LIPID, T7 #### [facility] [address] [place] [address] Dr. Hugh Landis Neutrophils/100 WBC (Bld) 63.9 % Normal 43.0-75.0 [facility] Comment on above: Performed By: #### U TOMAS, TSH, CMP, LIPID, T7 #### [facility] [address] [place] [address] Dr. Hugh Landis Platelet mean volume (Bld) [Entitic vol] 8.9 fL Critically low 9.5-13.5 [facility] Comment on above: Performed By: #### U TOMAS, TSH, CMP, LIPID, T7 #### [facility] [address] [place] [address] Dr. Hugh Landis PLT 257 103/ul Normal 150-450 [facility] Comment on above: Performed By: #### U TOMAS, TSH, CMP, LIPID, T7 #### [facility] [address] [address] [address] Hugh Landis RBC 3.94 106/ul Critically low 4.70-6.10 [facility] Comment on above: Performed By: #### U TOMAS, TSH, CMP, LIPID, T7 #### [facility] [address] [address] [address] Hugh Landis WBC 5.8 103/ul Normal 4.0-11.0 [facility] Comment on above: Performed By: #### U TOMAS, TSH, CMP, LIPID, T7 #### [facility] [address] [address] [address] Hugh Landis GLYCOHEMOGLOBIN A1Con 2021 ADA RECOMMENDATION SEE BELOW Normal [facility] Comment on above: Result Comment: ADA RECOMMENDED LIMIT 4.0 - 6.0 ADA THERAPEUTIC TARGET < 7.0 ACTION SUGGESTED > 7.0 Performed By: #### U TOMAS, TSH, CMP, LIPID, T7 #### [facility] [address] [address] [address] Hugh Landis Glucose [Mass/Vol] 134 mg/dL Normal [facility] Comment on above: Performed By: #### U TOMAS, TSH, CMP, LIPID, T7 #### [facility] [address] [address] [address] Hugh Landis HbA1c (Bld) [Mass fraction] 6.3 % Critically high 4.5-6.2 [facility] Comment on above: Performed By: #### U TOMAS, TSH, CMP, LIPID, T7 #### [facility] [address] [address] [address] Hugh Landis PROF CHEM 8 (BAS METB)on Anion gap [Moles/Vol] 17.6 mmol/L Normal [facility] Comment on above: Performed By: #### C MP, LIPID, TSH #### [facility] [address] [address] [address] Hugh Landis Calcium [Mass/Vol] 9.5 mg/dL Normal 8.5-10.[address] [facility] Comment on above: Performed By: #### C MP, LIPID, TSH #### [facility] [address] [address] [address] Hugh Landis Chloride [Moles/Vol] 102 mmol/L Normal 98-107 [facility] Comment on above: Performed By: #### C MP, LIPID, TSH #### [facility] [address] [address] [address] Hugh Landis CO2 [Moles/Vol] 22.2 mmol/L Normal 21.0-32.0 [facility] Comment on above: Performed By: #### C MP, LIPID, TSH #### [facility] [address] [address] [address] Hugh Landis Creatinine [Mass/Vol] 2.94 mg/dL Critically high 0.70-1.30 [facility] Comment on above: Performed By: #### C MP, LIPID, TSH #### [facility] [address] [address] [address] Hugh Landis EGFR-AF BHUTANESE 27 mL/min/1.73m2 Critically low >=60 [facility] Comment on above: Performed By: #### C MP, LIPID, TSH #### [facility] [address] [address] [address] Hugh Landis EGFR-NON AF BHUTANESE 22 mL/min/1.73m2 Critically low >=60 [facility] Comment on above: Performed By: #### C MP, LIPID, TSH #### [facility] [address] [address] [address] Hugh Landis Glucose [Mass/Vol] 234 mg/dL Critically high 74-106 [facility] Comment on above: Performed By: #### C MP, LIPID, TSH #### [facility] [address] [address] [address] Hugh Landis Potassium [Moles/Vol] 5.8 mmol/L Critically high 3.5-5.1 [facility] Comment on above: Performed By: #### C MP, LIPID, TSH #### [facility] [address] [address] [address] Hugh Landis Sodium [Moles/Vol] 136 mmol/L Normal 136-145 [facility] Comment on above: Performed By: #### C MP, LIPID, TSH #### [facility] [address] [place] [address] Dr. Hugh Landis Urea nitrogen [Mass/Vol] 46.0 mg/dL Critically high 7.0-18.0 [facility] Comment on above: Performed By: #### C MP, LIPID, TSH #### [facility] [address] [place] [address] Dr. Hugh Landis Urea nitrogen/Creatinine [Mass ratio] 15.6 mg/mg Normal [facility] Comment on above: Performed By: #### C MP, LIPID, TSH #### [facility] [address] [place] [address] Dr. Hugh Landis PROTIMEon 10-06-2021 INR Coag (PPP) [Relative time] 1.22 {INR} Normal [facility] Comment on above: Performed By: #### U TOMAS, TSH, CMP, LIPID, T7 #### [facility] [address] [place] [address] Dr. Hugh Landis INR GUIDELINES SEE BELOW Normal [facility] Comment on above: Result Comment: VIC RED INR: 2.0 - 3.0 CONDITIONS NOT LISTED BELOW 2.5 - 3.5 FOR PROSTHETIC HEART VALVE REPLACEMENT 2.5 - 3.5 RECURRENT THROMBOSIS Performed By: #### U TOMAS, TSH, CMP, LIPID, T7 #### [facility] [address] [place] [address] Dr. Hugh Landis PT Coag (PPP) [Time] 13.0 s Critically high 9.0-11.6 [facility] Comment on above: Performed By: #### U TOMAS, TSH, CMP, LIPID, T7 #### [facility] [address] [place] [address] Dr. Hugh Landis PTTon 10-06-2021 aPTT Coag (Bld) [Time] 30.6 s Normal 22.3-36.2 [facility] Comment on above: Performed By: #### U TOMAS, TSH, CMP, LIPID, T7 #### [facility] [address] [address] [address] Hugh Landis UA RANDOMon 10-06-2021 Bilirubin Ql (U) Negative Normal NEGATIVE [facility] Comment on above: Performed By: #### C MP, LIPID, TSH #### [facility] [address] [place] [address] Dr. Hugh Landis Clarity (U) CLEAR Normal CLEAR [facility] Comment on above: Performed By: #### C MP, LIPID, TSH #### [facility] [address] [address] [address] Hugh Landis Color (U) LT. YELLOW Normal YELLOW [facility] Comment on above: Performed By: #### C MP, LIPID, TSH #### [facility] [address] [place] [address] Dr. Hugh Landis Glucose Ql (U) Negative Normal NEGATIVE [facility] Comment on above: Performed By: #### C MP, LIPID, TSH #### [facility] [address] [place] [address] Dr. Hugh Landis Hemoglobin Ql (U) Negative Normal NEGATIVE [facility] Comment on above: Performed By: #### C MP, LIPID, TSH #### [facility] [address] [place] [address] Dr. Hugh Landis Ketones Ql (U) Negative Normal NEGATIVE [facility] Comment on above: Performed By: #### C MP, LIPID, TSH #### [facility] [address] [place] [address] Dr. Hugh Landis LEUKOCYTES Negative Normal NEGATIVE [facility] Comment on above: Performed By: #### C MP, LIPID, TSH #### [facility] [address] [place] [address] Dr. Hugh Landis Nitrite Ql (U) Negative Normal NEGATIVE [facility] Comment on above: Performed By: #### C MP, LIPID, TSH #### [facility] [address] [place] [address] Dr. Hugh Landis pH (U) 5.5 [pH] Normal 5-9 [facility] Comment on above: Performed By: #### C MP, LIPID, TSH #### [facility] [address] [place] [address] Dr. Hugh Landis SPEC GRAVITY 1.020 Normal 1.005-<=1.02 5 [facility] Comment on above: Performed By: #### C MP, LIPID, TSH #### [facility] [address] [place] [address] Dr. Hugh Landis UA PROTEIN Negative Normal NEGATIVE/ TRACE [facility] Comment on above: Performed By: #### C MP, LIPID, TSH #### [facility] [address] [place] [address] Dr. Hugh Landis Urobilinogen Qn (U) 0.2 {Dahiana'U}/dL Normal 0.2 - 1. 0 [facility] Comment on above: Performed By: #### C MP, LIPID, TSH #### [facility] [address] [place] [address] Dr. Hugh Landis CBC AUTO DIFFon 09-25-2021 BASO # 0.0 103/ul Normal 0.0-0.1 [facility] Comment on above: Performed By: #### U TOMAS, TSH, CMP, LIPID, T7 #### [facility] [address] [place] [address] Dr. Hugh Landis Basophils/100 WBC (Bld) 0.4 % Normal 0.2-2.0 [facility] Comment on above: Performed By: #### U TOMAS, TSH, CMP, LIPID, T7 #### [facility] [address] [place] [address] Dr. Hugh Landis EO # 0.1 103/ul Normal 0.0-0.7 [facility] Comment on above: Performed By: #### U TOMAS, TSH, CMP, LIPID, T7 #### [facility] [address] [place] [address] Dr. Hugh Landis Eosinophils/100 WBC (Bld) 1.7 % Normal 0.9-7.0 [facility] Comment on above: Performed By: #### U TOMAS, TSH, CMP, LIPID, T7 #### [facility] [address] [place] [address] Dr. Hugh Landis Erythrocyte distribution width (RBC) [Ratio] 13.5 % Normal 11.0-15.0 [facility] Comment on above: Performed By: #### U TOMAS, TSH, CMP, LIPID, T7 #### [facility] [address] [address] [address] Hugh Landis Hematocrit (Bld) [Volume fraction] 36.0 % Critically low 42.0-54.0 [facility] Comment on above: Performed By: #### U TOMAS, TSH, CMP, LIPID, T7 #### [facility] [address] [address] [address] Hugh Landis Hemoglobin (Bld) [Mass/Vol] 11.7 g/dL Critically low 14.0-18.0 [facility] Comment on above: Performed By: #### U TOMAS, TSH, CMP, LIPID, T7 #### [facility] [address] [place] [address] Dr. Hugh Landis IG # 0.02 10e3/ul Normal 0.00-0.03 [facility] Comment on above: Performed By: #### U TOMAS, TSH, CMP, LIPID, T7 #### [facility] [address] [address] [address] Hugh Landis IG % 0.3 % Normal 0.0-0.5 [facility] Comment on above: Performed By: #### U TOMAS, TSH, CMP, LIPID, T7 #### [facility] [address] [address] [address] Hugh Landis LYMPH # 1.3 103/ul Normal 1.2-3.8 [facility] Comment on above: Performed By: #### U TOMAS, TSH, CMP, LIPID, T7 #### [facility] [address] [address] [address] Hugh Landis Lymphocytes/100 WBC (Bld) 18.3 % Critically low 20.5-60.0 [facility] Comment on above: Performed By: #### U TOMAS, TSH, CMP, LIPID, T7 #### [facility] [address] [place] [address] Dr. Hugh Landis MANUAL DIFF REQ NO Normal [facility] Comment on above: Performed By: #### U TOMAS, TSH, CMP, LIPID, T7 #### [facility] [address] [place] [address] Dr. Hugh Landis MCH (RBC) [Entitic mass] 29.4 pg Normal 25.9-34.0 [facility] Comment on above: Performed By: #### U TOMAS, TSH, CMP, LIPID, T7 #### [facility] [address] [place] [address] Dr. Hugh Landis MCHC (RBC) [Mass/Vol] 32.5 g/dL Normal 29.9-35.2 [facility] Comment on above: Performed By: #### U TOMAS, TSH, CMP, LIPID, T7 #### [facility] [address] [place] [address] Dr. Hugh Landis MCV (RBC) [Entitic vol] 90.5 fL Normal 80.0-94.0 [facility] Comment on above: Performed By: #### U TOMAS, TSH, CMP, LIPID, T7 #### [facility] [address] [place] [address] Dr. Hugh Landis MONO # 0.6 103/ul Normal 0.3-0.8 [facility] Comment on above: Performed By: #### U TOMAS, TSH, CMP, LIPID, T7 #### [facility] [address] [place] [address] Dr. Hugh Landis Monocytes/100 WBC (Bld) 8.6 % Normal 1.7-12.0 [facility] Comment on above: Performed By: #### U TOMAS, TSH, CMP, LIPID, T7 #### [facility] [address] [place] [address] Dr. Hugh Landis NEUT # 4.9 103/ul Normal 1.4-6.5 [facility] Comment on above: Performed By: #### U TOMAS, TSH, CMP, LIPID, T7 #### [facility] [address] [place] [address] Dr. Hugh Landis Neutrophils/100 WBC (Bld) 70.7 % Normal 43.0-75.0 [facility] Comment on above: Performed By: #### U TOMAS, TSH, CMP, LIPID, T7 #### [facility] [address] [address] [address] Hugh Landis Platelet mean volume (Bld) [Entitic vol] 8.8 fL Critically low 9.5-13.5 [facility] Comment on above: Performed By: #### U TOMAS, TSH, CMP, LIPID, T7 #### [facility] [address] [place] [address] Dr. Hugh Landis PLT 270 103/ul Normal 150-450 [facility] Comment on above: Performed By: #### U TOMAS, TSH, CMP, LIPID, T7 #### [facility] [address] [place] [address] Dr. Hugh Landis RBC 3.98 106/ul Critically low 4.70-6.10 [facility] Comment on above: Performed By: #### U TOMAS, TSH, CMP, LIPID, T7 #### [facility] [address] [place] [address] Dr. Hugh Landis WBC 6.9 103/ul Normal 4.0-11.0 [facility] Comment on above: Performed By: #### U TOMAS, TSH, CMP, LIPID, T7 #### [facility] [address] [place] [address] Dr. Hugh Landis CRPon 09-25-2021 CRP [Mass/Vol] mg/L Normal <=1.0 [facility] Comment on above: Performed By: #### P T #### [facility] [address] [place] [address] Dr. Hugh Landis CULTURE BLOODon 09-25-2021 Microscopic examination of blood, culture Culture Observations: NO GROWTH AT 5 DAYS. Normal [facility] Comment on above: Performed By: #### B MP #### [facility] [address] [place] [address] Dr. Hugh Landis Microscopic examination of blood, culture Culture Observations: NO GROWTH AT 5 DAYS. Normal [facility] Comment on above: Performed By: #### B MP #### [facility] [address] [address] [address] Hugh Landis IRONon 09-25-2021 Iron [Mass/Vol] 62.0 ug/dL Critically low 65.0-175.0 [facility] Comment on above: Performed By: #### B MP #### [facility] [address] [place] [address] Dr. Hugh Landis SED RATE WESTERGRENon 2021 SED RATE 102 mm/hr Critically high <=20 [facility] Comment on above: Performed By: #### C MP, LIPID, TSH #### [facility] [address] [place] [address] Dr. Hugh Landis NM BONE IMAGE 3 [...] OBIE TSE Date: 2021-09-05 16:15 Normal [facility] CREATININEon 08-25-2021 Creatinine [Mass/Vol] 1.92 mg/dL Critically high 0.70-1.30 [facility] Comment on above: Performed By: #### C MP, LIPID, TSH #### [facility] [address] [address] [address] Hugh Landis EGFR-AF BHUTANESE 44 mL/min/1.73m2 Critically low >=60 [facility] Comment on above: Performed By: #### C MP, LIPID, TSH #### [facility] [address] [place] [address] Dr. Hugh Landis EGFR-NON AF BHUTANESE 36 mL/min/1.73m2 Critically low >=60 [facility] Comment on above: Performed By: #### C MP, LIPID, TSH #### [facility] [address] [place] [address] Dr. Hugh Landis CTA CHEST WO W [...] OBIE TSE Date: 2021-08-25 10:16 Normal [facility] CBC AUTO DIFFon 08-18-2021 BASO # 0.0 103/ul Normal 0.0-0.1 [facility] Comment on above: Performed By: #### C MP, LIPID, TSH #### [facility] [address] [place] [address] Dr. Hugh Landis Basophils/100 WBC (Bld) 0.4 % Normal 0.2-2.0 [facility] Comment on above: Performed By: #### C MP, LIPID, TSH #### [facility] [address] [place] [address] Dr. Hugh Landis EO # 0.1 103/ul Normal 0.0-0.7 [facility] Comment on above: Performed By: #### C MP, LIPID, TSH #### [facility] [address] [address] [address] Hugh Landis Eosinophils/100 WBC (Bld) 1.8 % Normal 0.9-7.0 [facility] Comment on above: Performed By: #### C MP, LIPID, TSH #### [facility] [address] [place] [address] Dr. Hugh Landis Erythrocyte distribution width (RBC) [Ratio] 13.3 % Normal 11.0-15.0 [facility] Comment on above: Performed By: #### C MP, LIPID, TSH #### [facility] [address] [place] [address] Dr. Hugh Landis Hematocrit (Bld) [Volume fraction] 34.7 % Critically low 42.0-54.0 [facility] Comment on above: Performed By: #### C MP, LIPID, TSH #### [facility] [address] [place] [address] Dr. Hugh Landis Hemoglobin (Bld) [Mass/Vol] 11.3 g/dL Critically low 14.0-18.0 [facility] Comment on above: Performed By: #### C MP, LIPID, TSH #### [facility] [address] [place] [address] Dr. Hugh Landis IG # 0.05 10e3/ul Critically high 0.00-0.03 [facility] Comment on above: Performed By: #### C MP, LIPID, TSH #### [facility] [address] [place] [address] Dr. Hugh Landis IG % 0.7 % Critically high 0.0-0.5 [facility] Comment on above: Performed By: #### C MP, LIPID, TSH #### [facility] [address] [place] [address] Dr. Hugh Landis LYMPH # 1.1 103/ul Critically low 1.2-3.8 [facility] Comment on above: Performed By: #### C MP, LIPID, TSH #### [facility] [address] [place] [address] Dr. Hugh Landis Lymphocytes/100 WBC (Bld) 16.0 % Critically low 20.5-60.0 [facility] Comment on above: Performed By: #### C MP, LIPID, TSH #### [facility] [address] [place] [address] Dr. Hugh Landis MANUAL DIFF REQ NO Normal [facility] Comment on above: Performed By: #### C MP, LIPID, TSH #### [facility] [address] [place] [address] Dr. Hugh Landis MCH (RBC) [Entitic mass] 29.7 pg Normal 25.9-34.0 [facility] Comment on above: Performed By: #### C MP, LIPID, TSH #### [facility] [address] [place] [address] Dr. Hugh Landis MCHC (RBC) [Mass/Vol] 32.6 g/dL Normal 29.9-35.2 [facility] Comment on above: Performed By: #### C MP, LIPID, TSH #### [facility] [address] [place] [address] Dr. Hugh Landis MCV (RBC) [Entitic vol] 91.3 fL Normal 80.0-94.0 [facility] Comment on above: Performed By: #### C MP, LIPID, TSH #### [facility] [address] [place] [address] Dr. Hugh Landis MONO # 0.7 103/ul Normal 0.3-0.8 [facility] Comment on above: Performed By: #### C MP, LIPID, TSH #### [facility] [address] [place] [address] Dr. Hugh Landis Monocytes/100 WBC (Bld) 9.7 % Normal 1.7-12.0 [facility] Comment on above: Performed By: #### C MP, LIPID, TSH #### [facility] [address] [place] [address] Dr. Hugh Landis NEUT # 4.9 103/ul Normal 1.4-6.5 [facility] Comment on above: Performed By: #### C MP, LIPID, TSH #### [facility] [address] [address] [address] Hugh Landis Neutrophils/100 WBC (Bld) 71.4 % Normal 43.0-75.0 [facility] Comment on above: Performed By: #### C MP, LIPID, TSH #### [facility] [address] [place] [address] Dr. Hugh Landis Platelet mean volume (Bld) [Entitic vol] 9.0 fL Critically low 9.5-13.5 [facility] Comment on above: Performed By: #### C MP, LIPID, TSH #### [facility] [address] [address] [address] Hugh Landis PLT 264 103/ul Normal 150-450 [facility] Comment on above: Performed By: #### C MP, LIPID, TSH #### [facility] [address] [place] [address] Dr. Hugh Landis RBC 3.80 106/ul Critically low 4.70-6.10 [facility] Comment on above: Performed By: #### C MP, LIPID, TSH #### [facility] [address] [place] [address] Dr. Hugh Landis WBC 6.8 103/ul Normal 4.0-11.0 [facility] Comment on above: Performed By: #### C MP, LIPID, TSH #### [facility] [address] [place] [address] Dr. Hugh Landis PROF 14(COMP METB)on 022 Albumin [Mass/Vol] 3.5 g/dL Normal 3.4-5.0 [facility] Comment on above: Performed By: #### U TOMAS, TSH, CMP, LIPID, T7 #### [facility] [address] [address] [address] Hugh Landis Albumin/Globulin [Mass ratio] 0.8 {ratio} Normal [facility] Comment on above: Performed By: #### U TOMAS, TSH, CMP, LIPID, T7 #### [facility] [address] [place] [address] Dr. Hugh Landis ALP [Catalytic activity/Vol] 63 U/L Normal 46-116 [facility] Comment on above: Performed By: #### U TOMAS, TSH, CMP, LIPID, T7 #### [facility] [address] [address] [address] Hugh Landis ALT [Catalytic activity/Vol] 26 U/L Normal 16-63 [facility] Comment on above: Performed By: #### U TOMAS, TSH, CMP, LIPID, T7 #### [facility] [address] [address] [address] Hugh Landis Anion gap [Moles/Vol] 12.7 mmol/L Normal [facility] Comment on above: Performed By: #### U TOMAS, TSH, CMP, LIPID, T7 #### [facility] [address] [place] [address] Dr. Hugh Landis AST [Catalytic activity/Vol] 14 U/L Critically low 15-37 [facility] Comment on above: Performed By: #### U TOMAS, TSH, CMP, LIPID, T7 #### [facility] [address] [address] [address] Hugh Landis Bilirubin [Mass/Vol] 0.3 mg/dL Normal 0.2-1.0 [facility] Comment on above: Performed By: #### U TOMAS, TSH, CMP, LIPID, T7 #### [facility] [address] [place] [address] Dr. Hugh Landis Calcium [Mass/Vol] 9.2 mg/dL Normal 8.5-10.1 [facility] Comment on above: Performed By: #### U TOMAS, TSH, CMP, LIPID, T7 #### [facility] [address] [place] [address] Dr. Hugh Landis Chloride [Moles/Vol] 105 mmol/L Normal 98-107 [facility] Comment on above: Performed By: #### U TOMAS, TSH, CMP, LIPID, T7 #### [facility] [address] [place] [address] Dr. Hugh Landis CO2 [Moles/Vol] 25.5 mmol/L Normal 21.0-32.0 [facility] [place] [facility] Comment on above: Performed By: #### U TOMAS, TSH, CMP, LIPID, T7 #### [facility] [address] [place] [address] Dr. Hugh Landis Creatinine [Mass/Vol] 2.46 mg/dL Critically high 0.70-1.30 [facility] Comment on above: Performed By: #### U TOMAS, TSH, CMP, LIPID, T7 #### [facility] [address] [place] [address] Dr. Hugh Landis EGFR-AF BHUTANESE 33 mL/min/1.73m2 Critically low >=60 [facility] Comment on above: Performed By: #### U TOMAS, TSH, CMP, LIPID, T7 #### [facility] [address] [place] [address] Dr. Hugh Landis EGFR-NON AF BHUTANESE 27 mL/min/1.73m2 Critically low >=60 [facility] Comment on above: Performed By: #### U TOMAS, TSH, CMP, LIPID, T7 #### [facility] [address] [place] [address] Dr. Hugh Landis Globulin (S) [Mass/Vol] 4.5 g/dL Normal [facility] Comment on above: Performed By: #### U TOMAS, TSH, CMP, LIPID, T7 #### [facility] [address] [place] [address] Dr. Hugh Landis Glucose [Mass/Vol] 119 mg/dL Critically high 74-106 [facility] Comment on above: Performed By: #### U TOMAS, TSH, CMP, LIPID, T7 #### [facility] [address] [place] [address] Dr. Hugh Landis Potassium [Moles/Vol] 4.2 mmol/L Normal 3.5-5.1 [facility] Comment on above: Performed By: #### U TOMAS, TSH, CMP, LIPID, T7 #### [facility] [address] [place] [address] Dr. Hugh Landis Protein [Mass/Vol] 8.0 g/dL Normal 6.4-8.2 [facility] Comment on above: Performed By: #### U TOMAS, TSH, CMP, LIPID, T7 #### [facility] [id number] Hugh Landis Sodium [Moles/Vol] 139 mmol/L Normal 136-145 [facility] Comment on above: Performed By: #### U TOMAS, TSH, CMP, LIPID, T7 #### [facility] [id number] [address] Hugh Landis Urea nitrogen [Mass/Vol] 49.0 mg/dL Critically high 7.0-18.0 [facility] Comment on above: Performed By: #### U TOMAS, TSH, CMP, LIPID, T7 #### [facility] [id number] Hugh Landis Urea nitrogen/Creatinine [Mass ratio] 19.9 mg/mg Normal [facility] Comment on above: Performed By: #### U TOMAS, TSH, CMP, LIPID, T7 #### [facility] [address] [address] [address] Hugh Landis TESTOSTERONE, FREE,DIRECT, T OTALon 08-14-2021 Free Testosterone(Direct) 5.9 pg/mL Critically low 7.2-24.0 [facility] Comment on above: Result Comment: Perf ormed at: BN Performed By: #### B MP #### [facility] [address] [place] [address] Dr. Hugh Landis Testosterone [Mass/Vol] 392 ng/dL Normal 264-916 [facility] Comment on above: Result Comment: Adul t male reference interval is based on a population of healthy nonobese males (BMI <30) between 19 and 39 years old. Gavi et.al. JCEM 2017,102;[id number]. PMID: [id number]. Performed at: CB Performed By: #### B MP #### [facility] [address] [place], [place] [id number] Dr. Hugh Landis VITAMIN B1 (THIAMINE)on 07-27 Vit. B1, Whole Blood 145.1 nmol/L Normal 66.5-200.0 [facility] Comment on above: Performed By: #### C MP, LIPID, TSH #### [facility] [address] [address] [address] Hugh Landis VITAMIN Aon 08-13-2021 Vitamin A 82.7 ug/dL Critically high 20.1-62.0 [facility] Comment on above: Result Comment: Refe [...] Administration. Performed By: #### P T #### [facility] [address] [place] [address] Dr. Hugh Landis ZINC SERUM OR PLASMAon 08-10 Zinc, Plasma or Serum 78 ug/dL Normal 44-115 [facility] Comment on above: Result Comment: Dete ction Limit = 5 Performed By: #### C MP, LIPID, TSH #### [facility] [address] [place] [address] Dr. Hugh Landis FOLATE ([facility])on 2 Folate 12.9 ng/mL Normal >3.0 [facility] Comment on above: Result Comment: A se rum folate concentration of less than 3.1 ng/mL is considered to represent clinical deficiency. Performed By: #### P TT #### [facility] [address] [place] [address] Dr. Hugh Landis PTH INTACTon 08-09-2021 PTH, Intact 29 pg/mL Normal 15-65 [facility] Comment on above: Performed By: #### P TT #### [facility] [address] [place] [address] Dr. Hugh Landis CBC AUTO DIFFon 08-08-2021 BASO # 0.0 103/ul Normal 0.0-0.1 [facility] Comment on above: Performed By: #### C MP, LIPID, TSH #### [facility] [address] [place] [address] Dr. Hugh Landis Basophils/100 WBC (Bld) 0.6 % Normal 0.2-2.0 [facility] Comment on above: Performed By: #### C MP, LIPID, TSH #### [facility] [address] [place] [address] Dr. Hugh Landis EO # 0.2 103/ul Normal 0.0-0.7 [facility] Comment on above: Performed By: #### C MP, LIPID, TSH #### [facility] [address] [place] [address] Dr. Hugh Landis Eosinophils/100 WBC (Bld) 2.2 % Normal 0.9-7.0 [facility] Comment on above: Performed By: #### C MP, LIPID, TSH #### [facility] [address] [place] [address] Dr. Hugh Landis Erythrocyte distribution width (RBC) [Ratio] 13.4 % Normal 11.0-15.0 [facility] Comment on above: Performed By: #### C MP, LIPID, TSH #### [facility] [address] [place] [address] Dr. Hugh Landis Hematocrit (Bld) [Volume fraction] 38.2 % Critically low 42.0-54.0 [facility] Comment on above: Performed By: #### C MP, LIPID, TSH #### [facility] [address] [place] [address] Dr. Hugh Landis Hemoglobin (Bld) [Mass/Vol] 11.8 g/dL Critically low 14.0-18.0 [facility] Comment on above: Performed By: #### C MP, LIPID, TSH #### [facility] [address] [place] [address] Dr. Hugh Landis IG # 0.03 10e3/ul Normal 0.00-0.03 [facility] Comment on above: Performed By: #### C MP, LIPID, TSH #### [facility] [address] [place] [address] Dr. Hugh Landis IG % 0.4 % Normal 0.0-0.5 [facility] Comment on above: Performed By: #### C MP, LIPID, TSH #### [facility] [address] [place] [address] Dr. Hugh Landis LYMPH # 1.0 103/ul Critically low 1.2-3.8 [facility] Comment on above: Performed By: #### C MP, LIPID, TSH #### [facility] [address] [place] [address] Dr. Hugh Landis Lymphocytes/100 WBC (Bld) 14.9 % Critically low 20.5-60.0 [facility] Comment on above: Performed By: #### C MP, LIPID, TSH #### [facility] [address] [place] [address] Dr. Hugh Landis MANUAL DIFF REQ NO Normal [facility] Comment on above: Performed By: #### C MP, LIPID, TSH #### [facility] [address] [place] [address] Dr. Hugh Landis MCH (RBC) [Entitic mass] 28.5 pg Normal 25.9-34.0 [facility] Comment on above: Performed By: #### C MP, LIPID, TSH #### [facility] [address] [place] [address] Dr. Hugh Landis MCHC (RBC) [Mass/Vol] 30.9 g/dL Normal 29.9-35.2 [facility] Comment on above: Performed By: #### C MP, LIPID, TSH #### [facility] [address] [place] [address] Dr. Hugh Landis MCV (RBC) [Entitic vol] 92.3 fL Normal 80.0-94.0 [facility] Comment on above: Performed By: #### C MP, LIPID, TSH #### [facility] [address] [place] [address] Dr. Hugh Landis MONO # 0.7 103/ul Normal 0.3-0.8 [facility] Comment on above: Performed By: #### C MP, LIPID, TSH #### [facility] [address] [place] [address] Dr. Hugh Landis Monocytes/100 WBC (Bld) 10.6 % Normal 1.7-12.0 [facility] Comment on above: Performed By: #### C MP, LIPID, TSH #### [facility] [address] [address] [address] Hugh Landis NEUT # 4.9 103/ul Normal 1.4-6.5 [facility] Comment on above: Performed By: #### C MP, LIPID, TSH #### [facility] [address] [address] [address] Hugh Landis Neutrophils/100 WBC (Bld) 71.3 % Normal 43.0-75.0 [facility] Comment on above: Performed By: #### C MP, LIPID, TSH #### [facility] [address] [address] [address] Hugh Landis Platelet mean volume (Bld) [Entitic vol] 9.4 fL Critically low 9.5-13.5 [facility] Comment on above: Performed By: #### C MP, LIPID, TSH #### [facility] [address] [address] [address] Hugh Landis PLT 249 103/ul Normal 150-450 [facility] Comment on above: Performed By: #### C MP, LIPID, TSH #### [facility] [address] [address] [address] Hugh Landis RBC 4.14 106/ul Critically low 4.70-6.10 [facility] Comment on above: Performed By: #### C MP, LIPID, TSH #### [facility] [address] [address] [address] Hugh Landis WBC 6.9 103/ul Normal 4.0-11.0 [facility] Comment on above: Performed By: #### C MP, LIPID, TSH #### [facility] [address] [address] [address] Hugh Landis FERRITINon 08-08-2021 Ferritin [Mass/Vol] 154.0 ng/mL Normal 26.0-388.0 [facility] Comment on above: Performed By: #### C MP, LIPID, TSH #### [facility] [address] [address] [address] Hugh Landis GLYCOHEMOGLOBIN A1Con 2021 ADA RECOMMENDATION SEE BELOW Normal The [facility] Comment on above: Result Comment: ADA RECOMMENDED LIMIT 4.0 - 6.0 ADA THERAPEUTIC TARGET < 7.0 ACTION SUGGESTED > 7.0 Performed By: #### P T #### [facility] [address] [place] [address] Dr. Hugh Landis Glucose [Mass/Vol] 140 mg/dL Normal [facility] Comment on above: Performed By: #### P T #### [facility] [address] [address] [address] Hugh Landis HbA1c (Bld) [Mass fraction] 6.5 % Critically high 4.5-6.2 [facility] Comment on above: Performed By: #### P T #### [facility] [address] [place] [address] Dr. Hugh Landis IRON AND TIBCon 08-08-2021 % SATURATION 13.6 % Normal [facility] Comment on above: Performed By: #### C MP, LIPID, TSH #### [facility] [address] [place] [address] Dr. Hugh Landis Iron [Mass/Vol] 45.0 ug/dL Critically low 65.0-175.0 [facility] Comment on above: Performed By: #### C MP, LIPID, TSH #### [facility] [address] [place] [address] Dr. Hugh Landis TIBC DIRECT 332.0 ug/dL Normal 250.0-450.0 [facility] Comment on above: Performed By: #### C MP, LIPID, TSH #### [facility] [address] [place] [address] Dr. Hugh Landis LIPID PROFILEon 08-08-2021 CHOL-HDL RATIO NORM SEE BELOW Normal [facility] Comment on above: Result Comment: 3.3 - 4.4 LOW RISK 4.4 - 7.1 AVERAGE RISK 7.1 - 11.0 MODERATE RISK >11.0 HIGH RISK Performed By: #### C MP, LIPID, TSH #### [facility] [address] [place] [address] Dr. Hugh Landis Cholesterol [Mass/Vol] 187 mg/dL Normal <=200 [facility] Comment on above: Performed By: #### C MP, LIPID, TSH #### [facility] [address] [address] [address] Hugh Landis Cholesterol in HDL [Mass/Vol] 51 mg/dL Normal 40-60 [facility] Comment on above: Performed By: #### C MP, LIPID, TSH #### [facility] [address] [address] [address] Hugh Landis Cholesterol in LDL [Mass/Vol] 101.8 mg/dL Normal [facility] Comment on above: Performed By: #### C MP, LIPID, TSH #### [facility] [address] [place] [address] Dr. Hugh Landis Cholesterol.total/Ch olesterol in HDL [Mass ratio] 3.7 {ratio} Normal [facility] Comment on above: Performed By: #### C MP, LIPID, TSH #### [facility] [address] [address] [address] Hugh Landis HDL NORMAL > or = 60 mg/dl - LO W CARDIOVASCULAR RISK <40 mg/dl - HIGH CARDIOVASCULAR RISK Normal [facility] Comment on above: Performed By: #### C MP, LIPID, TSH #### [facility] [address] [place] [address] Dr. Hugh Landis LDL CALC NORMAL SEE BELOW Normal [facility] Comment on above: Result Comment: <100 mg/dl OPTIMAL 100 - 129 mg/dl NEAR OR ABOVE OPTIMAL 130 - 159 mg/dl BORDERLINE HIGH 160 - 189 mg/dl HIGH >190 mg/dl VERY HIGH Performed By: #### C MP, LIPID, TSH #### [facility] [address] [address] [address] Hugh Landis Triglyceride [Mass/Vol] 171 mg/dL Critically high <=150 [facility] Comment on above: Performed By: #### C MP, LIPID, TSH #### [facility] [address] [address] [address] Hugh Landis VLDL CALC 34.2 mg/dL Normal [facility] Comment on above: Performed By: #### C MP, LIPID, TSH #### [facility] [address] [address] [address] Hugh Landis PROF 14(COMP METB)on 022 Albumin [Mass/Vol] 3.6 g/dL Normal 3.4-5.0 [facility] Comment on above: Performed By: #### C MP, LIPID, TSH #### [facility] [address] [address] [address] Hugh Landis Albumin/Globulin [Mass ratio] 0.8 {ratio} Normal [facility] Comment on above: Performed By: #### C MP, LIPID, TSH #### [facility] [address] [address] [address] Hugh Landis ALP [Catalytic activity/Vol] 64 U/L Normal 46-116 [facility] Comment on above: Performed By: #### C MP, LIPID, TSH #### [facility] [address] [place] [address] Dr. Hugh Landis ALT [Catalytic activity/Vol] 28 U/L Normal 16-63 [facility] Comment on above: Performed By: #### C MP, LIPID, TSH #### [facility] [address] [place] [address] Dr. Hugh Landis Anion gap [Moles/Vol] 15.0 mmol/L Normal [facility] Comment on above: Performed By: #### C MP, LIPID, TSH #### [facility] [address] [address] [address] Hugh Landis AST [Catalytic activity/Vol] 14 U/L Critically low 15-37 [facility] Comment on above: Performed By: #### C MP, LIPID, TSH #### [facility] [address] [address] [address] Hugh Landis Bilirubin [Mass/Vol] 0.5 mg/dL Normal 0.2-1.0 [facility] Comment on above: Performed By: #### C MP, LIPID, TSH #### [facility] [address] [place] [address] Dr. Hugh Landis Calcium [Mass/Vol] 9.6 mg/dL Normal 8.5-10.[address] [facility] Comment on above: Performed By: #### C MP, LIPID, TSH #### [facility] [address] [place] [address] Dr. Hugh Landis Chloride [Moles/Vol] 105 mmol/L Normal 98-107 [facility] Comment on above: Performed By: #### C MP, LIPID, TSH #### [facility] [address] [place] [address] Dr. Hugh Landis CO2 [Moles/Vol] 23.5 mmol/L Normal 21.0-32.0 [facility] [place] [facility] Comment on above: Performed By: #### C MP, LIPID, TSH #### [facility] [address] [place] [address] Dr. Hugh Landis Creatinine [Mass/Vol] 2.69 mg/dL Critically high 0.70-1.30 [facility] Comment on above: Performed By: #### C MP, LIPID, TSH #### [facility] [address] [place] [address] Dr. Hugh Landis EGFR-AF BHUTANESE 30 mL/min/1.73m2 Critically low >=60 [facility] Comment on above: Performed By: #### C MP, LIPID, TSH #### [facility] [address] [place] [address] Dr. Hugh Landis EGFR-NON AF BHUTANESE 25 mL/min/1.73m2 Critically low >=60 [facility] Comment on above: Performed By: #### C MP, LIPID, TSH #### [facility] [address] [place] [address] Dr. Hugh Landis Globulin (S) [Mass/Vol] 4.3 g/dL Normal [facility] Comment on above: Performed By: #### C MP, LIPID, TSH #### [facility] [address] [place] [address] Dr. Hugh Landis Glucose [Mass/Vol] 80 mg/dL Normal 74-[address] [facility] Comment on above: Performed By: #### C MP, LIPID, TSH #### [facility] [address] [address] [address] Hugh Landis Potassium [Moles/Vol] 5.5 mmol/L Critically high 3.5-5.1 [facility] Comment on above: Performed By: #### C MP, LIPID, TSH #### [facility] [address] [place] [address] Dr. Hugh Landis Protein [Mass/Vol] 7.9 g/dL Normal 6.4-8.[address] [facility] Comment on above: Performed By: #### C MP, LIPID, TSH #### [facility] [address] [place] [address] Dr. Hugh Landis Sodium [Moles/Vol] 138 mmol/L Normal 136-[address] [facility] Comment on above: Performed By: #### C MP, LIPID, TSH #### [facility] [address] [place] [address] Dr. Hugh Landis Urea nitrogen [Mass/Vol] 47.0 mg/dL Critically high 7.0-18.0 [facility] Comment on above: Performed By: #### C MP, LIPID, TSH #### [facility] [address] [place] [address] Dr. Hugh Landis Urea nitrogen/Creatinine [Mass ratio] 17.5 mg/mg Normal [facility] Comment on above: Performed By: #### C MP, LIPID, TSH #### [facility] [address] [place] [address] Dr. Hugh Landis TSHon 08-08-2021 TSH 1.069 uIU/mL Normal 0.358-3.740 [facility] Comment on above: Performed By: #### C MP, LIPID, TSH #### [facility] [address] [place] [address] Dr. Hugh Landis TSH RANGE SEE BELOW Normal [facility] Comment on above: Result Comment: <0.3 4 UIU/ml HYPERTHYROID 0.34-5.60 UIU/ml EUTHYROID >5.60 UIU/ml HYPOTHYROID Performed By: #### C MP, LIPID, TSH #### [facility] [address] [place] [address] Dr. Hugh Landis VITAMIN B12on 08-08-2021 Cobalamin (Vitamin B12) [Mass/Vol] 336.0 pg/mL Normal 193.0-986.0 [facility] Comment on above: Performed By: #### C MP, LIPID, TSH #### [facility] [address] [address] [address] Hugh Landis VITAMIN D 25 OHon 08-08-2021 VIT D 25-OH 36.6 ng/mL Normal [facility] Comment on above: Performed By: #### C MP, LIPID, TSH #### [facility] [address] [address] [address] Hugh Landis VIT D RANGES SEE BELOW Normal [facility] Comment on above: Result Comment: <20 ng/mL Vit D deficient 20 - <30 ng/mL Vit D insufficient 30 - 100 ng/mL Vit D sufficient >100 ng/mL Potential Toxicity Performed By: #### C MP, LIPID, TSH #### [facility] [address] [address] [address] Hugh Landis KNEE RIGHT 3 VWSon 2 KNEE RIGHT 3 S [facility] Department of Radiology [address] [place] [id number] ======== Patient Name: SUKHDEEP SIMENTAL : [...] disruption. Electronically signed: Cole Richmond. Transcribed by: [email or web address], User Resident: Electronically Signed by: COLE RICHMOND @ 07/23/2021 10:50 PM Normal [facility] Comment on above: Order Comment: Evalu ate CBCon 07-18-2021 Erythrocyte distribution width (RBC) [Ratio] 13.5 % Normal 11.8-14.4 [facility] Comment on above: Performed By: #### C BC, PT, PTT, BMP #### [email or web address] [address] [place] [address] Technology Lead: Good Melendez MD #### ANICOT #### [facility] [address] [place], [place] [id number] Technology Lead: Troy Link MD Hematocrit (Bld) [Volume fraction] 39.1 % Low 40.7-50.3 [facility] Comment on above: Performed By: #### C BC, PT, PTT, BMP #### [email or web address] [address] [place] [address] Technology Lead: Good Melendez MD #### ANICOT #### [facility] [address] [place] [address] Technology Lead: Troy Link MD Hemoglobin (Bld) [Mass/Vol] 12.3 g/dL Low 13.0-17.0 [facility] Comment on above: Performed By: #### C BC, PT, PTT, BMP #### [address] [address] Technology Lead: Good Melendez MD #### ANICOT #### [facility] [address] [place] [address] Technology Lead: Troy Link MD MCH (RBC) [Entitic mass] 28.8 pg Normal 25.2-33.5 [facility] Comment on above: Performed By: #### C BC, PT, PTT, BMP #### [address] [address] Technology Lead: Good Melendez MD #### ANICOT #### [facility] [address] [place] [address] Technology Lead: Troy Link MD MCHC (RBC) [Mass/Vol] 31.5 g/dL Normal 28.4-34.8 [facility] Comment on above: Performed By: #### C BC, PT, PTT, BMP #### [facility] [employer] [address] [place] [id number] Technology Lead: Good Melendez MD #### ANICOT #### [facility] [address] [place] [address] Technology Lead: Troy Link MD MCV (RBC) [Entitic vol] 91.6 fL Normal 82.6-102.9 [facility] Comment on above: Performed By: #### C BC, PT, PTT, BMP #### [address] [address] Technology Lead: Good Melendez MD #### ANICOT #### [facility] [address] [place], [place] [id number] Technology Lead: Troy Link MD NRBC Automated 0.0 per 100 WBC Normal 0.0 [facility] Comment on above: Performed By: #### C BC, PT, PTT, BMP #### [address] [address] Technology Lead: Good Melendez MD #### ANICOT #### [facility] [address] [place], [place] [id number] Technology Lead: Troy Link MD Platelet mean volume (Bld) [Entitic vol] 9.7 fL Normal 8.1-13.5 [facility] Comment on above: Performed By: #### C BC, PT, PTT, BMP #### [address] [address] Technology Lead: Good Melendez MD #### ANICOT #### [facility] [address] [place] [address] Technology Lead: Troy Link MD Platelets (Bld) [#/Vol] 190 10*3/uL Normal 138-453 [facility] Comment on above: Performed By: #### C BC, PT, PTT, BMP #### [address] [address] Technology Lead: Good Melendez MD #### ANICOT #### [facility] [address] [place], [place] [id number] Technology Lead: Troy Link MD RBC (Bld) [#/Vol] 4.27 10*6/uL Normal 4.21-5.77 [facility] Comment on above: Performed By: #### C BC, PT, PTT, BMP #### [facility] [address] [place] [address] Technology Lead: Good Melendez MD #### ANICOT #### [facility] [address] [place], [place] [id number] Technology Lead: Troy Link MD WBC (Bld) [#/Vol] 8.7 10*3/uL Normal 3.5-11.3 [facility] Comment on above: Performed By: #### C BC, PT, PTT, BMP #### [address] [address] Technology Lead: Good Melendez MD #### ANICOT #### [facility] [address] [place] [address] Technology Lead: Troy Link MD APTTon 07-17-2021 aPTT Coag (Bld) [Time] 20.8 s Normal 20.5-30.5 [facility] Comment on above: Result Comment: IV Heparin Therapy Range: 48.6-77.8 Performed By: #### C BC, PT, PTT, BMP #### [address] [address] Technology Lead: Good Melendez MD #### ANICOT #### [facility] [address] [place], [place] [id number] Technology Lead: Troy Link MD aPTT Coag (Bld) [Time] 37.9 s High 20.5-30.5 [facility] Comment on above: Result Comment: IV Heparin Therapy Range: 48.6-77.8 Performed By: #### C BC, PT, PTT, BMP #### [facility] [address] [place] [address] Technology Lead: Good Melendez MD #### ANICOT #### [facility] [address] [place] [address] Technology Lead: Troy Link MD aPTT Coag (Bld) [Time] 78.1 s High 20.5-30.5 [facility] Comment on above: Result Comment: IV Heparin Therapy Range: 48.6-77.8 Performed By: #### C BC, PT, PTT, BMP #### [address] [id number] Technology Lead: Good Melendez MD #### ANICOT #### [facility] [address] [place] [address] Technology Lead: Troy Link MD Basic Metab w/rfx MGon 07-17 (cont.) Normal [facility] Comment on above: Result Comment: Aver age GFR for 50-59 years old: 93 mL/min/1.73sq m Chronic Kidney Disease: <60 mL/min/1.73sq m Kidney failure: <15 mL/min/1.73sq m eGFR calculated using average adult body mass. Additional eGFR calculator available at: http://www.[employer].com/multiple_crcl_2012.htm Performed By: #### C BC, PT, PTT, BMP #### [address] [address] Technology Lead: Good Melendez MD #### ANICOT #### [facility] [address] [place] [address] Technology Lead: Troy Link MD Anion gap [Moles/Vol] 9 mmol/L Normal 9-17 [facility] Comment on above: Performed By: #### C BC, PT, PTT, BMP #### [facility] [employer] [address] [place] [address] Technology Lead: Good Melendez MD #### ANICOT #### [facility] [address] [place] [address] Technology Lead: Troy Link MD Calcium [Mass/Vol] 9.3 mg/dL Normal 8.6-10.4 [facility] Comment on above: Performed By: #### C BC, PT, PTT, BMP #### [address] [address] Technology Lead: Good Melendez MD #### ANICOT #### [facility] [address] [place], [place] [id number] Technology Lead: Troy Link MD Chloride [Moles/Vol] 106 mmol/L Normal 98-107 [facility] Comment on above: Performed By: #### C BC, PT, PTT, BMP #### [address] [id number] Technology Lead: Good Melendez MD #### ANICOT #### [facility] [address] [place] [address] Technology Lead: Troy Link MD CO2 [Moles/Vol] 23 mmol/L Normal 20-31 [facility] Comment on above: Performed By: #### C BC, PT, PTT, BMP #### [address] [id number] Technology Lead: Good Melendez MD #### ANICOT #### [facility] [address] [place] [address] Technology Lead: Troy Link MD Creatinine [Mass/Vol] 1.40 mg/dL High 0.70-1.20 [facility] Comment on above: Performed By: #### C BC, PT, PTT, BMP #### [address] [address] Technology Lead: Good Melendez MD #### ANICOT #### [facility] [address] [place], [place] [id number] Technology Lead: Troy Link MD GFR, Amer >60 Normal >60 [facility] Comment on above: Performed By: #### C BC, PT, PTT, BMP #### [address] [address] Technology Lead: Good Melendez MD #### ANICOT #### [facility] [address] [place], [place] [id number] Technology Lead: Troy Link MD GFR,non Amer 52 mL/min Low >60 [facility] Comment on above: Performed By: #### C BC, PT, PTT, BMP #### [address] [id number] Technology Lead: Good Melendez MD #### ANICOT #### [facility] [address] [place], [place] [id number] Technology Lead: Troy Link MD Glucose [Mass/Vol] 170 mg/dL High 70-99 [facility] Comment on above: Performed By: #### C BC, PT, PTT, BMP #### [address] [id number] Technology Lead: Good Melendez MD #### ANICOT #### [facility] [address] [place], [place] [id number] Technology Lead: Troy Link MD Potassium [Moles/Vol] 4.6 mmol/L Normal 3.7-5.3 [facility] Comment on above: Performed By: #### C BC, PT, PTT, BMP #### [address] [id number] Technology Lead: Good Melendez MD #### ANICOT #### [facility] [address] [place], [place] [id number] Technology Lead: Troy Link MD Sodium [Moles/Vol] 138 mmol/L Normal 135-144 [facility] Comment on above: Performed By: #### C BC, PT, PTT, BMP #### [facility] [address] [place] [address] Technology Lead: Good Melendez MD #### ANICOT #### [facility] [address] [place], [place] [id number] Technology Lead: Troy Link MD Urea nitrogen [Mass/Vol] 33 mg/dL High 6-20 [facility] Comment on above: Performed By: #### C BC, PT, PTT, BMP #### [facility] [employer] [address] [place] [address] Technology Lead: Good Melendez MD #### ANICOT #### [facility] [address] [place] [address] Technology Lead: Troy Link MD Basic Metabolic Profon 07-17 (cont.) Normal [facility] Comment on above: Result Comment: Aver age GFR for 50-59 years old: 93 mL/min/1.73sq m Chronic Kidney Disease: <60 mL/min/1.73sq m Kidney failure: <15 mL/min/1.73sq m eGFR calculated using average adult body mass. Additional eGFR calculator available at: http://www.[employer]/multiple_crcl_2012.htm Performed By: #### C BC, PT, PTT, BMP #### [facility] [address] [place] [address] Technology Lead: Good Melendez MD #### ANICOT #### [facility] [address] [place] [address] Technology Lead: Troy Link MD Anion gap [Moles/Vol] 8 mmol/L Low 9-17 [facility] Comment on above: Performed By: #### C BC, PT, PTT, BMP #### [facility] [employer] [address] [place] [address] Technology Lead: Good Melendez MD #### ANICOT #### [facility] [address] [place], [place] [id number] Technology Lead: Troy Link MD Calcium [Mass/Vol] 9.5 mg/dL Normal 8.6-10.4 [facility] Comment on above: Performed By: #### C BC, PT, PTT, BMP #### [address] [address] Technology Lead: Good Melendez MD #### ANICOT #### [facility] [address] [place], [place] [id number] Technology Lead: Troy Link MD Chloride [Moles/Vol] 104 mmol/L Normal 98-107 [facility] Comment on above: Performed By: #### C BC, PT, PTT, BMP #### [address] [address] Technology Lead: Good Melendez MD #### ANICOT #### [facility] [address] [place], [place] [id number] Technology Lead: Troy Link MD CO2 [Moles/Vol] 23 mmol/L Normal 20-31 [facility] Comment on above: Performed By: #### C BC, PT, PTT, BMP #### [address] [address] Technology Lead: Good Melendez MD #### ANICOT #### [facility] [address] [place], [place] [id number] Technology Lead: Troy Link MD Creatinine [Mass/Vol] 1.34 mg/dL High 0.70-1.20 [facility] Comment on above: Performed By: #### C BC, PT, PTT, BMP #### [address] [address] Technology Lead: Good Melendez MD #### ANICOT #### [facility] [address] [place] [address] Technology Lead: Troy Link MD GFR, Amer >60 Normal >60 [facility] Comment on above: Performed By: #### C BC, PT, PTT, BMP #### [address] [address] Technology Lead: Good Melendez MD #### ANICOT #### [facility] [address] [place] [address] Technology Lead: Troy Link MD GFR,non Amer 55 mL/min Low >60 [facility] Comment on above: Performed By: #### C BC, PT, PTT, BMP #### [address] [address] Technology Lead: Good Melendez MD #### ANICOT #### [facility] [address] [place], [place] [id number] Technology Lead: Troy Link MD Glucose [Mass/Vol] 136 mg/dL High 70-99 [facility] Comment on above: Performed By: #### C BC, PT, PTT, BMP #### [address] [address] Technology Lead: Good Melendez MD #### ANICOT #### [facility] [address] [place] [address] Technology Lead: Troy Link MD Potassium [Moles/Vol] 4.7 mmol/L Normal 3.7-5.3 [facility] Comment on above: Performed By: #### C BC, PT, PTT, BMP #### [address] [address] Technology Lead: Good Melendez MD #### ANICOT #### [facility] [address] [place], [place] [id number] Technology Lead: Troy Link MD Sodium [Moles/Vol] 135 mmol/L Normal 135-144 [facility] Comment on above: Performed By: #### C BC, PT, PTT, BMP #### [facility] [address] [place] [address] Technology Lead: Good Melendez MD #### ANICOT #### [facility] [address] [place] [address] Technology Lead: Troy Link MD Urea nitrogen [Mass/Vol] 31 mg/dL High 6-20 [facility] Comment on above: Performed By: #### C BC, PT, PTT, BMP #### [facility] [address] [place] [address] [id number] Technology Lead: Good Melendez MD #### ANICOT #### [facility] [address] [place], [place] [id number] Technology Lead: Troy Link MD Fibrinogenon 07-17-2021 Fibrinogen 404 mg/dL Normal 140-420 [facility] Comment on above: Performed By: #### C BC, PT, PTT, BMP #### [facility] [address] [place] [address] Technology Lead: Good Melendez MD #### ANICOT #### [facility] [address] [place], [place] [id number] Technology Lead: Troy Link MD Fibrinogen 395 mg/dL Normal 140-420 [facility] Comment on above: Performed By: #### C BC, PT, PTT, BMP #### [facility] [address] [place] [address] Technology Lead: Good Melendez MD #### ANICOT #### [facility] [address] [place] [address] Technology Lead: Troy Link MD Hemoglobin A1Con 07-17-2021 Glucose [Mass/Vol] 169 mg/dL Normal [facility] Comment on above: Result Comment: The ADA and AACC recommend providing the estimated average glucose result to permit better patient understanding of their HBA1c result. Performed By: #### C BC, PT, PTT, BMP #### [facility] [employer] [address] [place] [address] Technology Lead: Good Melendez MD #### ANICOT #### [facility] [address] [place], [place] [id number] Technology Lead: Troy Link MD HbA1c (Bld) [Mass fraction] 7.5 % High 4.0-6.0 [facility] Comment on above: Performed By: #### C BC, PT, PTT, BMP #### [address] [id number] Technology Lead: Good Melendez MD #### ANICOT #### [facility] [address] [place] [address] Technology Lead: Troy Link MD PTon 07-17-2021 INR Coag (PPP) [Relative time] 1.2 {INR} Normal [facility] Comment on above: Result Comment: Therapeutic Range: Moderate Anticoagulant Intensity: INR = 2.0-3.0 High Anticoagulant Intensity: INR = 2.5-3.5 Performed By: #### C BC, PT, PTT, BMP #### [facility] [employer] [address] [place] [address] Technology Lead: Good Melendez MD #### ANICOT #### [facility] [address] [place] [address] Technology Lead: Troy Link MD PT Coag (PPP) [Time] 12.6 s High 9.1-12.3 [facility] Comment on above: Performed By: #### C BC, PT, PTT, BMP #### [facility] [employer] [address] [place] [address] Technology Lead: Good Melendez MD #### ANICOT #### [facility] [address] [place] [address] Technology Lead: Troy Link MD Troponinon 07-17-2021 Troponin, High Sens 38 ng/L High 0-22 [facility] Comment on above: Result Comment: High Sensitivity Troponin values cannot be compared with other Troponin methodologies. Patients with high levels of Biotin oral intake (i.e >5mg/day) may have falsely decreased Troponin levels. Samples collected within 8 hours of biotin intake may require additional information for diagnosis. Performed By: #### C BC, PT, PTT, BMP #### [address] [address] Technology Lead: Good Melendez MD #### ANICOT #### [facility] [address] [place] [address] Technology Lead: Troy Link MD APTTon 7 aPTT Coag (Bld) [Time] 51.1 s High 20.5-30.5 [facility] Comment on above: Result Comment: IV Heparin Therapy Range: 48.6-77.8 Performed By: #### C BC, PT, PTT, BMP #### [address] [address] Technology Lead: Good Melendez MD #### ANICOT #### [facility] [address] [place] [address] Technology Lead: Troy Link MD aPTT Coag (Bld) [Time] 31.1 s High 20.5-30.5 [facility] Comment on above: Result Comment: IV Heparin Therapy Range: 48.6-77.8 Performed By: #### C BC, PT, PTT, BMP #### [facility] [employer] [address] [place] [address] Technology Lead: Good Melendez MD #### ANICOT #### [facility] [address] [place] [address] Technology Lead: Troy Link MD Brain Natri. Peptideon 07-16 Natriuretic peptide B (Bld) [Mass/Vol] 1492 pg/mL High <300 [facility] Comment on above: Result Comment: An age-independent cutoff point of 300 pg/ml has a 98% negative predictive value excluding acute heart failure. Performed By: #### C BC, PT, PTT, BMP #### [facility] [address] [place] [address] Technology Lead: Good Melendez MD #### ANICOT #### [facility] [address] [place] [address] Technology Lead: Troy Link [facility] Erythrocyte distribution width (RBC) [Ratio] 13.6 % Normal 11.8-14.4 [facility] Comment on above: Performed By: #### C BC, PT, PTT, BMP #### [address] [address] Technology Lead: Good Melendez MD #### ANICOT #### [facility] [address] [place] [address] Technology Lead: Troy Link MD Hematocrit (Bld) [Volume fraction] 40.3 % Low 40.7-50.3 [facility] Comment on above: Performed By: #### C BC, PT, PTT, BMP #### [facility] [address] [place] [address] [id number] Technology Lead: Good Melendez MD #### ANICOT #### [facility] [address] [place] [address] Technology Lead: Troy Link MD Hemoglobin (Bld) [Mass/Vol] 13.0 g/dL Normal 13.0-17.0 [facility] Comment on above: Performed By: #### C BC, PT, PTT, BMP #### [address] [id number] Technology Lead: Good Melendez MD #### ANICOT #### [facility] [address] [place] [address] Technology Lead: Troy Link MD MCH (RBC) [Entitic mass] 28.7 pg Normal 25.2-33.5 [facility] Comment on above: Performed By: #### C BC, PT, PTT, BMP #### [address] [id number] Technology Lead: Good Melendez MD #### ANICOT #### [facility] [address] [place] [address] [id number] Technology Lead: Troy Link MD MCHC (RBC) [Mass/Vol] 32.3 g/dL Normal 28.4-34.8 [facility] Comment on above: Performed By: #### C BC, PT, PTT, BMP #### [address] [id number] Technology Lead: Good Melendez MD #### ANICOT #### [facility] [address] [place], [place] [id number] Technology Lead: Troy Link MD MCV (RBC) [Entitic vol] 89.0 fL Normal 82.6-102.9 [facility] Comment on above: Performed By: #### C BC, PT, PTT, BMP #### [address] 1984708 Technology Lead: Good Melendez MD #### ANICOT #### [facility] [address] [place], [place] [id number] Technology Lead: Troy Link MD NRBC Automated 0.0 per 100 WBC Normal 0.0 [facility] Comment on above: Performed By: #### C BC, PT, PTT, BMP #### [address] [address] Technology Lead: Good Melendez MD #### ANICOT #### [facility] [address] [place] [address] Technology Lead: Troy Link MD Platelet mean volume (Bld) [Entitic vol] 9.6 fL Normal 8.1-13.5 [facility] Comment on above: Performed By: #### C BC, PT, PTT, BMP #### [address] [address] Technology Lead: Good Melendez MD #### ANICOT #### [facility] [address] [place] [address] Technology Lead: Troy Link MD Platelets (Bld) [#/Vol] 203 10*3/uL Normal 138-453 [facility] Comment on above: Performed By: #### C BC, PT, PTT, BMP #### [address] [address] Technology Lead: Good Melendez MD #### ANICOT #### [facility] [address] [place] [address] Technology Lead: Troy Link MD RBC (Bld) [#/Vol] 4.53 10*6/uL Normal 4.21-5.77 [facility] Comment on above: Performed By: #### C BC, PT, PTT, BMP #### [address] [address] Technology Lead: Good Melendez MD #### ANICOT #### [facility] [address] [place] [address] Technology Lead: Troy Link MD WBC (Bld) [#/Vol] 6.8 10*3/uL Normal 3.5-11.3 [facility] Comment on above: Performed By: #### C BC, PT, PTT, BMP #### [email or web address] [address] [place] [address] Technology Lead: Good Melendez MD #### ANICOT #### [facility] [address] [place] [address] Technology Lead: Troy Link MD Troponinon 07-16-2021 Troponin, High Sens 59 ng/L Critically high 0- [facility] Comment on above: Result Comment: High Sensitivity Troponin values cannot be compared with other Troponin methodologies. Patients with high levels of Biotin oral intake (i.e >5mg/day) may have falsely decreased Troponin levels. Samples collected within 8 hours of biotin intake may require additional information for diagnosis. Performed By: #### C BC, PT, PTT, BMP #### [email or web address] [address] [place] [address] Technology Lead: Good Melendez MD #### ANICOT #### [facility] [address] [place] [address] Technology Lead: Troy Link MD EKG 12 LeadOrdered By: Matias Varela on 05-26-2021 Atrial Rate 108 BPM [employer] Phone: P [place] -96 degrees [employer] Phone: P-R Interval 192 ms [employer] Phone: Q-T Interval 348 ms [employer] Phone: QRS Duration 94 ms [employer] Phone: QTc Calculation (Bazett) 466 ms [employer] Phone: R [place] -116 degrees [employer] Phone: T [place] -114 degrees [employer] Phone: Ventricular Rate 108 BPM [employer] Work Phone: [employer] Work Phone: EKG 12 Leadon 05-26-2021 Arm lead reversal Sinus Tachycardia V Leads placement error Repeat ECG When compared with ECG of 08-MAY-2021 11:42, Significant changes have occurred [facility] STV Matias Andrade MD - 05/26/2021 Arm lead reversal Sinus Tachycardia V Leads placement error Repeat ECG When compared with ECG of 08-MAY-2021 11:42, Significant changes have occurred [employer] Work Phone: SURGICAL PATHOLOGY REPORTon 05-26-2021 Surgical [...] with no areas of granularity or masses. [employer] sections 1cs. tm Microscopic Description Sections of gastric wall show lamina propria without evidence of significant inflammation. There is no evidence of intestinal metaplasia or dysplasia. There is no evidence of organisms suspicious for Helicobacter with the routine H&E stain. SURGICAL PATHOLOGY CONSULTATION Patient Name: SUKHDEEP SIMENTAL [facility] Rec: [id number] Path Number: [id number] [facility] [employer] [facility] ANATOMIC PATHOLOGY [address] [place] [address]. [place], [place] [address] [facility] [employer] Basic Metabolic Panelon 03-3 Anion gap [Moles/Vol] 10 mmol/L 9 - 17 mmol/L [employer] Calcium [Mass/Vol] 9.1 mg/dL 8.6 - 10. 4 mg/dL [employer] Chloride [Moles/Vol] 106 mmol/L 98 - 10 7 mmol/L [employer] CO2 [Moles/Vol] 23 mmol/L 20 - 31 mmol/L [facility] Creatinine [Mass/Vol] 1.1 mg/dL 0.70 - 1.20 mg/dL [facility] [employer] GFR >60 >60 mL/min [facility] GFR Non- >60 >60 mL/min [facility] GFR/1.73 sq M.predicted MDRD (S/P/Bld) [Vol rate/Area] [facility] Comment on above: Average GFR for 50-5 9 years old: 93 mL/min/1.73sq m Chronic Kidney Disease: <60 mL/min/1.73sq m Kidney failure: <15 mL/min/1.73sq m eGFR calculated using average adult body mass. Additional eGFR calculator available at: http://www.Cint/[employer]_crcl_2011.htm Glucose [Mass/Vol] 127 mg/dL High 70 - 99 mg/dL [facility] Interpretation and review of laboratory results Abnormal [facility] [employer] Potassium [Moles/Vol] 4.8 mmol/L 3.7 - 5.3 mmol/L [facility] [employer] Sodium [Moles/Vol] 139 mmol/L 135 - 144 mmol/L [facility] Urea nitrogen (BldV) [Mass/Vol] 24 mg/dL High 6 - 20 mg/dL [facility] Basic Metabolic Profon 05-25 (cont.) Normal [facility] Comment on above: Result Comment: Aver age GFR for 50-59 years old: 93 mL/min/1.73sq m Chronic Kidney Disease: <60 mL/min/1.73sq m Kidney failure: <15 mL/min/1.73sq m eGFR calculated using average adult body mass. Additional eGFR calculator available at: http://www.Cint/multiple_crcl_2011.htm Performed By: #### C BC, PT, PTT, BMP #### [email or web address] [address] [place] [address] Technology Lead: Good Melendez MD #### KATIEICOT #### [facility] [address] [place] [address] Technology Lead: Troy Link MD Anion gap [Moles/Vol] 10 mmol/L Normal 9-17 [facility] Comment on above: Performed By: #### C BC, PT, PTT, BMP #### [address] [address] Technology Lead: Good Melendez MD #### ANICOT #### [facility] [address] [place], [place] [id number] Technology Lead: Troy Link MD Calcium [Mass/Vol] 9.1 mg/dL Normal 8.6-10.4 [facility] Comment on above: Performed By: #### C BC, PT, PTT, BMP #### [address] [id number] Technology Lead: Good Melendez MD #### ANICOT #### [address] [address] Technology Lead: Troy Link MD Chloride [Moles/Vol] 106 mmol/L Normal 98-107 [facility] Comment on above: Performed By: #### C BC, PT, PTT, BMP #### [address] [address] Technology Lead: Good Melendez MD #### ANICOT #### [address] [id number] Technology Lead: Troy Link MD CO2 [Moles/Vol] 23 mmol/L Normal 20-31 [facility] Comment on above: Performed By: #### C BC, PT, PTT, BMP #### [address] [address] Technology Lead: Good Melendez MD #### ANICOT #### [facility] [address] [place] [address] Technology Lead: Troy Link MD Creatinine [Mass/Vol] 1.10 mg/dL Normal 0.70-1.20 [facility] Comment on above: Performed By: #### C BC, PT, PTT, BMP #### [address] [address] Technology Lead: Good Melendez MD #### ANICOT #### [facility] [address] [place], [place] [id number] Technology Lead: Troy Link MD GFR, Amer >60 Normal >60 [facility] Comment on above: Performed By: #### C BC, PT, PTT, BMP #### [address] [address] Technology Lead: Good Melendez MD #### ANICOT #### [facility] [address] [place] [address] Technology Lead: Troy Link MD GFR,non Amer >60 Normal >60 [facility] Comment on above: Performed By: #### C BC, PT, PTT, BMP #### [address] [address] Technology Lead: Good Melendez MD #### ANICOT #### [facility] [address] [place], [place] [id number] Technology Lead: Troy Link MD Glucose [Mass/Vol] 127 mg/dL High 70-99 [facility] Comment on above: Performed By: #### C BC, PT, PTT, BMP #### [address] [address] Technology Lead: Good Melendez MD #### ANICOT #### [facility] [address] [place], [place] [id number] Technology Lead: Troy Link MD Potassium [Moles/Vol] 4.8 mmol/L Normal 3.7-5.3 [facility] Comment on above: Performed By: #### C BC, PT, PTT, BMP #### [facility] [employer] [facility] [place], [place] [id number] Technology Lead: Good Melendez MD #### ANICOT #### [facility] [address] [place], [place] [id number] Technology Lead: Troy Link MD Sodium [Moles/Vol] 139 mmol/L Normal 135-144 [facility] Comment on above: Performed By: #### C BC, PT, PTT, BMP #### [address] [id number] Technology Lead: Good Melendez MD #### ANICOT #### [facility] [address] [place] [address] Technology Lead: Troy Link MD Urea nitrogen [Mass/Vol] 24 mg/dL High 6-20 [facility] Comment on above: Performed By: #### C BC, PT, PTT, BMP #### [address] [id number] Technology Lead: Good Melendez MD #### ANICOT #### [facility] [address] [place] [address] Technology Lead: Troy Link MD CBCon 05-25-2021 Erythrocyte distribution width (RBC) [Ratio] 13.9 % Normal 11.8-14.4 [facility] Comment on above: Performed By: #### C BC, PT, PTT, BMP #### [address] [id number] Technology Lead: Good Melendez MD #### ANICOT #### [facility] [address] [place] [address] Technology Lead: Troy Link MD Hematocrit (Bld) [Volume fraction] 39.5 % Low 40.7-50.3 [facility] Comment on above: Performed By: #### C BC, PT, PTT, BMP #### [address] [id number] Technology Lead: Good Melendez MD #### ANICOT #### [facility] [address] [place], [place] [id number] Technology Lead: Troy Link MD Hemoglobin (Bld) [Mass/Vol] 12.2 g/dL Low 13.0-17.0 [facility] Comment on above: Performed By: #### C BC, PT, PTT, BMP #### [address] [id number] Technology Lead: Good Melendez MD #### ANICOT #### [facility] [address] [place] [address] [id number] Technology Lead: Troy Link MD MCH (RBC) [Entitic mass] 30.2 pg Normal 25.2-33.5 [facility] Comment on above: Performed By: #### C BC, PT, PTT, BMP #### [address] [id number] Technology Lead: Good Melendez MD #### ANICOT #### [facility] [address] [place], [place] [id number] Technology Lead: Troy Link MD MCHC (RBC) [Mass/Vol] 30.9 g/dL Normal 28.4-34.8 [facility] Comment on above: Performed By: #### C BC, PT, PTT, BMP #### [address] [id number] Technology Lead: Good Melendez MD #### ANICOT #### [facility] [address] [place], [place] [id number] Technology Lead: Troy Link MD MCV (RBC) [Entitic vol] 97.8 fL Normal 82.6-102.9 [facility] Comment on above: Performed By: #### C BC, PT, PTT, BMP #### [address] [address] Technology Lead: Good Melendez MD #### ANICOT #### [facility] [address] [place], [place] [id number] Technology Lead: Troy Link MD NRBC Automated 0.0 per 100 WBC Normal 0.0 [facility] Comment on above: Performed By: #### C BC, PT, PTT, BMP #### [address] [address] Technology Lead: Good Melendez MD #### ANICOT #### [facility] [address] [place], [place] [id number] Technology Lead: Troy Link MD Platelet mean volume (Bld) [Entitic vol] 8.8 fL Normal 8.1-13.5 [facility] Comment on above: Performed By: #### C BC, PT, PTT, BMP #### [address] [address] Technology Lead: Good Melendez MD #### ANICOT #### [facility] [address] [place], [place] [id number] Technology Lead: Troy Link MD Platelets (Bld) [#/Vol] 263 10*3/uL Normal 138-453 [facility] Comment on above: Performed By: #### C BC, PT, PTT, BMP #### [address] [address] Technology Lead: Good Melendez MD #### ANICOT #### [facility] [address] [place], [place] [id number] Technology Lead: Troy Link MD RBC (Bld) [#/Vol] 4.04 10*6/uL Low 4.21-5.77 [facility] Comment on above: Performed By: #### C BC, PT, PTT, BMP #### [facility] [address] [place] [address] Technology Lead: Good Melendez MD #### ANICOT #### [facility] [address] [place], [place] [id number] Technology Lead: Troy Link MD WBC (Bld) [#/Vol] 10.8 10*3/uL Normal 3.5-11.3 [facility] Comment on above: Performed By: #### C BC, PT, PTT, BMP #### [facility] [place], [place] [id number] Technology Lead: Good Melendez MD #### ANICOT #### [facility] [address] [place] [address] Technology Lead: Troy Link MD Hematocrit (Bld) [Volume fraction] 39.5 % Low 40.7 - 50.3 % [facility] Hemoglobin.gastroint estinal spec 1 Ql (Stl) 12.2 g/dL Low 13.0 - 17.0 g/dL [facility] Interpretation and review of laboratory results Abnormal [facility] [employer] MCH (RBC) [Entitic mass] 30.2 pg 25.2 - 33.5 pg [facility] [employer] MCHC (RBC) [Mass/Vol] 30.9 g/dL 28.4 - 34.8 g/dL [facility] MCV (RBC) [Entitic vol] 97.8 fL 82.6 - 102.9 fL [facility] NRBC Automated 0.0 0.0 per 100 WBC [facility] Platelet distribution width (Bld) [Ratio] 13.9 % 11.8 - 14.4 % [facility] Platelet mean volume (Bld) [Entitic vol] 8.8 fL 8.1 - 13.5 fL [facility] [employer] Platelets (Bld) [#/Vol] 263 10*3/uL [facility] [employer] RBC (Bld) [#/Vol] 4.04 10*6/uL Low 4.21 - 5.7 7 m/uL [facility] WBC (Bld) [#/Vol] 10.8 10*3/uL [facility] Magnesiumon 05-25-2021 Magnesium [Mass/Vol] 1.9 mg/dL Normal 1.6-2.6 [facility] Comment on above: Performed By: #### C BC, PT, PTT, BMP #### [email or web address] [address] [place] [address] Technology Lead: Good Melendez MD #### ANAPARNAT #### [facility] [address] [place], [place] [id number] Technology Lead: Troy Link MD Magnesium [Mass/Vol] 1.9 mg/dL [...] with no areas of granularity or masses. [employer] sections 1cs. tm Microscopic Description Sections of gastric wall show lamina propria without evidence of significant inflammation. There is no evidence of intestinal metaplasia or dysplasia. There is no evidence of organisms suspicious for Helicobacter with the routine CADNY stain. SURGICAL PATHOLOGY CONSULTATION Patient Name: SUKHDEEP SIMENTAL [facility] Rec: [id number] Path Number: [id number] [employer] [facility] ANATOMIC PATHOLOGY [address] [place] [phone] Normal [facility] Comment on above: Performed By: #### C BC, PT, PTT, BMP #### [facility] [address] [place] [address] Technology Lead: Good Melendez MD #### ANICOT #### [facility] [address] [place] [address] Technology Lead: Troy Link MD Basic Metabolic Panelon 04-27 Anion gap [Moles/Vol] 13 mmol/L 9 - 17 mmol/L [employer] Calcium [Mass/Vol] 9.1 mg/dL 8.6 - 10. 4 mg/dL [employer] Chloride [Moles/Vol] 102 mmol/L 98 - 10 7 mmol/L [employer] CO2 [Moles/Vol] 17 mmol/L Low 20 - 31 mmol/L [employer] Creatinine [Mass/Vol] 1.16 mg/dL 0.70 - 1.20 mg/dL [employer] GFR >60 >60 mL/min [facility] GFR Non- >60 >60 mL/min [employer] GFR/1.73 sq M.predicted MDRD (S/P/Bld) [Vol rate/Area] [employer] Comment on above: Average GFR for 50-5 9 years old: 93 mL/min/1.73sq m Chronic Kidney Disease: <60 mL/min/1.73sq m Kidney failure: <15 mL/min/1.73sq m eGFR calculated using average adult body mass. Additional eGFR calculator available at: http://www.Corpora.BOXX [email or web address] Glucose [Mass/Vol] 203 mg/dL High 70 - 99 mg/dL [employer] Interpretation and review of laboratory results Abnormal [employer] Potassium [Moles/Vol] 4.2 mmol/L 3.7 - 5.3 mmol/L [employer] Sodium [Moles/Vol] 132 mmol/L Low 135 - 144 mmol/L [employer] Urea nitrogen (BldV) [Mass/Vol] 29 mg/dL High 6 - 20 mg/dL [employer] Basic Metabolic Profon 05-24 (cont.) Normal [facility] Comment on above: Result Comment: Aver age GFR for 50-59 years old: 93 mL/min/1.73sq m Chronic Kidney Disease: <60 mL/min/1.73sq m Kidney failure: <15 mL/min/1.73sq m eGFR calculated using average adult body mass. Additional eGFR calculator available at: [email or web address] [email or web address]_[email or web address] Performed By: #### C BC, BMP #### [facility] [employer] [address] [place] [address] 14263 Technology Lead: Good Melendez MD Anion gap [Moles/Vol] 13 mmol/L Normal 9-17 [facility] Comment on above: Performed By: #### C BC, BMP #### [facility] [employer] [address] [place] [address] 40775 Technology Lead: Good Melendez MD Calcium [Mass/Vol] 9.1 mg/dL Normal 8.6-10.4 [facility] Comment on above: Performed By: #### C BC, BMP #### [facility] [employer] [address] [place] [address] 86852 Technology Lead: Good Melendez MD Chloride [Moles/Vol] 102 mmol/L Normal 98-107 [facility] Comment on above: Performed By: #### C BC, BMP #### [facility] [employer] [address] [place] [address] 11674 Technology Lead: Good Melendez MD CO2 [Moles/Vol] 17 mmol/L Low 20-31 [facility] Comment on above: Performed By: #### C BC, BMP #### [facility] [employer] [address] [place] [address] 51250 Technology Lead: Good Melendez MD Creatinine [Mass/Vol] 1.16 mg/dL Normal 0.70-1.20 [facility] Comment on above: Performed By: #### C BC, BMP #### [facility] [employer] [address] [place] [address] 52499 Technology Lead: Good Melendez MD GFR, Amer >60 Normal >60 [facility] Comment on above: Performed By: #### C BC, BMP #### [facility] [employer] [address] [place] [address] 44346 Technology Lead: Good Melendez MD GFR,non Amer >60 Normal >60 [facility] Comment on above: Performed By: #### C BC, BMP #### [facility] [employer] [address] [place] [address] 72062 Technology Lead: Good Melendez MD Glucose [Mass/Vol] 203 mg/dL High 70-99 [facility] Comment on above: Performed By: #### C BC, BMP #### [facility] [address] [place] [address] 08631 Technology Lead: Good Melendez MD Potassium [Moles/Vol] 4.2 mmol/L Normal 3.7-5.3 [facility] Comment on above: Performed By: #### C BC, BMP #### [facility] [employer] [address] [place] [address] 94516 Technology Lead: Good Melendez MD Sodium [Moles/Vol] 132 mmol/L Low 135-144 [facility] Comment on above: Performed By: #### C BC, BMP #### [facility] [employer] [address] [place] [address] 42395 Technology Lead: Good Melendez MD Urea nitrogen [Mass/Vol] 29 mg/dL High 6-20 [facility] Comment on above: Performed By: #### C BC, BMP #### [facility] [employer] [address] [place] [address] 85098 Technology Lead: Good Melendez MD CBCon 05-24-2021 Erythrocyte distribution width (RBC) [Ratio] 14.0 % Normal 11.8-14.4 [facility] Comment on above: Performed By: #### C BC, BMP #### [address] [address] Technology Lead: Good Melendez MD Hematocrit (Bld) [Volume fraction] 41.0 % Normal 40.7-50.3 [facility] Comment on above: Performed By: #### C BC, BMP #### [address] [address] Technology Lead: Good Melendez MD Hemoglobin (Bld) [Mass/Vol] 12.7 g/dL Low 13.0-17.0 [facility] Comment on above: Performed By: #### C BC, BMP #### [address] [address] Technology Lead: Good Melendez MD MCH (RBC) [Entitic mass] 29.5 pg Normal 25.2-33.5 [facility] Comment on above: Performed By: #### C BC, BMP #### [address] [address] Technology Lead: Good Melendez MD MCHC (RBC) [Mass/Vol] 31.0 g/dL Normal 28.4-34.8 [facility] Comment on above: Performed By: #### C BC, BMP #### [address] [address] Technology Lead: Good Melendez MD MCV (RBC) [Entitic vol] 95.3 fL Normal 82.6-102.9 [facility] Comment on above: Performed By: #### C BC, BMP #### [address] [address] Technology Lead: Good Melendez MD NRBC Automated 0.0 per 100 WBC Normal 0.0 [facility] Comment on above: Performed By: #### C BC, BMP #### [address] [address] Technology Lead: Good Melendez MD Platelet mean volume (Bld) [Entitic vol] 8.8 fL Normal 8.1-13.5 [facility] Comment on above: Performed By: #### C JASE, BMP #### [facility] [facility] [place] [address] Technology Lead: Good Melendez MD Platelets (Bld) [#/Vol] 273 10*3/uL Normal 138-453 [facility] Comment on above: Performed By: #### C JASE, BMP #### [facility] [facility] [place] [address] Technology Lead: Good Melendez MD RBC (Bld) [#/Vol] 4.30 10*6/uL Normal 4.21-5.77 [facility] Comment on above: Performed By: #### Bennett LAGUNA, BMP #### [facility] [employer] [address] [place] [address] 23035 Technology Lead: Good Melendez MD WBC (Bld) [#/Vol] 9.6 10*3/uL Normal 3.5-11.3 [facility] Comment on above: Performed By: #### C JASE, BMP #### [facility] [employer] [address] [place] [address] 77106 Technology Lead: Good Melendez MD CBC without Diffon Hematocrit (Bld) [Volume fraction] 41.0 % 40.7 - 50.3 % [facility] Hemoglobin.gastroint estinal spec 1 Ql (Stl) 12.7 g/dL Low 13.0 - 17.0 g/dL [facility] Interpretation and review of laboratory results Abnormal [facility] MCH (RBC) [Entitic mass] 29.5 pg 25.2 - 33.5 pg [facility] MCHC (RBC) [Mass/Vol] 31.0 g/dL 28.4 - 34.8 g/dL [facility] MCV (RBC) [Entitic vol] 95.3 fL 82.6 - 102.9 fL [facility] NRBC Automated 0.0 0.0 per 100 WBC [facility] Platelet distribution width (Bld) [Ratio] 14.0 % 11.8 - 14.4 % [facility] Platelet mean volume (Bld) [Entitic vol] 8.8 fL 8.1 - 13.5 fL [facility] Platelets (Bld) [#/Vol] 273 10*3/uL [facility] RBC (Bld) [#/Vol] 4.30 10*6/uL 4.21 - 5.7 7 m/uL [facility] WBC (Bld) [#/Vol] 9.6 10*3/uL [facility] COVID-19, Rapidon 05-24-2021 SARS-CoV-2 (COVID-19) RNA MUKUL+probe Ql (Unsp spec) Not detected Not Detected [facility] Comment on above: Rapid NAAT: The [...] management decisions. Fact sheet for Healthcare Providers: https://www.fda.gov/media/771596/download Fact sheet for Patients: https://www.fda.gov/media/431082/download Methodology: Isothermal Nucleic Acid Amplification Specimen Description .NASOPHARYNGEAL SWAB [facility] Calcium, Ionicon 05-24-2021 Calcium [Moles/Vol] 1.31 mmol/L Normal 1.13-1.33 [facility] Comment on above: Performed By: #### I BRAVO MG, BRITTANIE #### [facility] [employer] [address] [place], [place] [id number] Technology Lead: Good Melendez MD Calcium, Ionizedon 03-30-202 2 Calcium [Moles/Vol] 1.31 mmol/L 1.13 - 1 .33 mmol/L [facility] Magnesiumon 05-24-2021 Magnesium [Mass/Vol] 2.0 mg/dL Normal 1.6-2.6 [facility] Comment on above: Performed By: #### C BC, PT, PTT, BMP #### [email or web address] [address] [place], [place] [id number] Technology Lead: Good Melendez MD #### ANICOT #### [facility] [address] [place] [address] Technology Lead: Troy Link MD Magnesium [Mass/Vol] 2.0 mg/dL 1.6 - 2 .6 mg/dL [facility] No Panel Informationon 05-24 [facility] POC Glucose Fingerstickon Glucose [Mass/Vol] 199 mg/dL High 75 - 110 mg/dL [facility] Interpretation and review of laboratory results Abnormal [facility] Glucose [Mass/Vol] 209 mg/dL High 75 - 110 mg/dL [facility] Interpretation and review of laboratory results Abnormal [facility] POCT Glucoseon 05-24-2021 Glucose [Mass/Vol] 150 mg/dL High 74 - 100 mg/dL [facility] Interpretation and review of laboratory results Abnormal [facility] POTASSIUM (POC)on 05-24-2021 Potassium [Moles/Vol] 3.9 mmol/L 3.5 - 4.5 mmol/L [facility] Phosphoruson 05-24-2021 Phosphate [Mass/Vol] 3.8 mg/dL 2.5 - 4 .5 mg/dL [facility] Phosphorus, Inorg.on 022 Phosphorus, Inorg. 3.8 mg/dL Normal 2.5-4.5 [facility] Comment on above: Performed By: #### C BC, PT, PTT, BMP #### [email or web address] [address] [place], [place] [id number] Technology Lead: Good Melendez MD #### ANICOT #### [facility] [address] [place] [address] Technology Lead: Troy Link MD [id number] 05-24-2021 SARS-CoV-2 (COVID-19) RNA MUKUL+probe Ql (Unsp spec) Not detected [facility] Comment on above: Result Comment: Rapid [...] management decisions. Fact sheet for Healthcare Providers: https://www.fda.gov/media/311098/download Fact sheet for Patients: https://www.fda.gov/media/449769/download Methodology: Isothermal Nucleic Acid Amplification Performed By: #### C OVRB #### [facility] [address] [place] [address] 13095 Technology Lead: Good Melendez MD Nicotineon 05-11-2021 9-HG-Iopwulua <2 Normal [facility] Comment on above: Performed By: #### C BC, PT, PTT, BMP #### [email or web address] [address] [place] [address] 34022 Technology Lead: Good Melendez MD #### ANICOT #### [facility] [address] [place] [address] Technology Lead: Troy Link MD Cotinine <2 Normal [facility] Comment on above: Performed By: #### C BC, PT, PTT, BMP #### [email or web address] [address] [place] [address] [phone] Technology Lead: Good Melendez MD #### ANICOT #### [address] [address] Technology Lead: Troy Link MD Nicotine <2 Normal [facility] Comment on above: Result [...] developed and its performance characteristics determined by [facility]. It has not been cleared or approved by the [place] Food and Drug Administration. This test was performed in a CLIA certified laboratory and is intended for clinical purposes. Performed By: [facility] [address] [place] [address] 9[address]12 Prop Making Supervisor: Ayse Diaz MD Performed By: #### C BC, PT, PTT, BMP #### [facility] [address] [place] [address] 40184 Technology Lead: Good Melendez MD #### ANICOT #### [facility] [employer] [address] [place] [address]108 Technology Lead: Troy Link MD Nicotine, Bloodon 05-11-2021 6-GA-Hartmetg <2 ng/mL [facility] Cotinine <2 ng/mL [facility] Nicotine <2 ng/mL [facility] Comment on above: (NOTE) Consistent with [...] developed and its performance characteristics determined by [facility]. It has not been cleared or approved by the [place] Food and Drug Administration. This test was performed in a CLIA certified laboratory and is intended for clinical purposes. Performed By: [facility] [address] [place] [address] 14983 Prop Making Supervisor: Ayse Diaz MD [facility] [employer] EKG 12 LeadOrdered By: Unkno wn Result on 05-09-2021 Atrial Rate 122 BPM [employer] P [place] 55 degrees [employer] P-R Interval 164 ms [employer] Q-T Interval 298 ms [employer] QRS Duration 84 ms [employer] QTc Calculation (Bazett) 424 ms [employer] R [place] -11 degrees [facility] T [place] 42 degrees [facility] Ventricular Rate 122 BPM [facility] al[facility] [employer] EKG 12 Leadon 05-09-2021 Sinus tachycardia Otherwise normal ECG No previous ECGs available [facility] STV MUSE Result, Unknown Provider - 05/09/2021 Sinus tachycardia Otherwise normal ECG No previous ECGs available [employer] Work Phone: XR CHEST (2 VW)on 05-09-2021 [...] Singh Calero MD 05/09/21 Final result Normal [facility] No acute airspace disease identified. [facility] EXAMINATION: TWO XRAY VIEWS OF THE [...] effusion. No acute osseous abnormality is identified. [facility] Singh Blakely MD - 05/09/2021 EXAMINATION: TWO [...] identified. IMPRESSION: No acute airspace disease identified. [employer] Phone: XR CHEST (2 VW)Ordered By: Carlos Calero on 05-09-2021 [employer] Phone: APTTon 05-08-2021 aPTT Coag (Bld) [Time] 23.1 s Normal 20.5-30.5 [facility] Comment on above: Result Comment: IV Heparin Therapy Range: 48.6-77.8 Performed By: #### C BC, PT, PTT, BMP #### [email or web address] [address] [place], [place] [id number] Technology Lead: Good Melendez MD #### ANICOT #### [facility] [address] [place] [address] Technology Lead: Troy Link MD aPTT Coag (Bld) [Time] 23.1 s [facility] Comment on above: IV Heparin Therapy Range: 48.6-77.8 Basic Metabolic Panelon - Anion gap [Moles/Vol] 15 mmol/L 9 - 17 mmol/L [facility] Calcium [Mass/Vol] 9.4 mg/dL 8.6 - 10. 4 mg/dL [facility] Chloride [Moles/Vol] 103 mmol/L 98 - 10 7 mmol/L [facility] CO2 [Moles/Vol] 19 mmol/L Low 20 - 31 mmol/L [facility] Creatinine [Mass/Vol] 1.59 mg/dL High 0.70 - 1.20 mg/dL [facility] GFR 55 mL/min Low >60 [facility] GFR Non- 45 mL/min Low >60 [facility] GFR/1.73 sq M.predicted MDRD (S/P/Bld) [Vol rate/Area] [facility] Comment on above: Average GFR for 50-5 9 years old: 93 mL/min/1.73sq m Chronic Kidney Disease: <60 mL/min/1.73sq m Kidney failure: <15 mL/min/1.73sq m eGFR calculated using average adult body mass. Additional eGFR calculator available at: http://www.Cint/multiple_crcl_2012.htm Glucose [Mass/Vol] 141 mg/dL High 70 - 99 mg/dL [facility] Interpretation and review of laboratory results Abnormal [facility] Potassium [Moles/Vol] 5.3 mmol/L 3.7 - 5.3 mmol/L [facility] Sodium [Moles/Vol] 137 mmol/L 135 - 144 mmol/L [facility] Urea nitrogen (BldV) [Mass/Vol] 37 mg/dL High 6 - 20 mg/dL [facility] Basic Metabolic Profon 05-08 (cont.) Normal [facility] Comment on above: Result Comment: Aver age GFR for 50-59 years old: 93 mL/min/1.73sq m Chronic Kidney Disease: <60 mL/min/1.73sq m Kidney failure: <15 mL/min/1.73sq m eGFR calculated using average adult body mass. Additional eGFR calculator available at: http://www.Corpora.com/multiple_crcl_2012.htm Performed By: #### C BC, PT, PTT, BMP #### [address] [address] Technology Lead: Good Melendez MD #### ANICOT #### [address] [id number] Technology Lead: Troy Link MD Anion gap [Moles/Vol] 15 mmol/L Normal 9-17 [facility] Comment on above: Performed By: #### C BC, PT, PTT, BMP #### [address] [address] Technology Lead: Good Melendez MD #### ANICOT #### [address] [id number] Technology Lead: Troy Link MD Calcium [Mass/Vol] 9.4 mg/dL Normal 8.6-10.4 [facility] Comment on above: Performed By: #### C BC, PT, PTT, BMP #### [address] [address] Technology Lead: Good Melendez MD #### ANICOT #### [address] [id number] Technology Lead: Troy Link MD Chloride [Moles/Vol] 103 mmol/L Normal 98-107 [facility] Comment on above: Performed By: #### C BC, PT, PTT, BMP #### [address] [address] Technology Lead: Good Melendez MD #### ANICOT #### [facility] [address] [place] [address] [phone] Technology Lead: Troy Link MD CO2 [Moles/Vol] 19 mmol/L Low 20-31 [facility] Comment on above: Performed By: #### C BC, PT, PTT, BMP #### [address] [address] Technology Lead: Good Melendez MD #### ANICOT #### [facility] [address] [place], [place] [id number] Technology Lead: Troy Link MD Creatinine [Mass/Vol] 1.59 mg/dL High 0.70-1.20 [facility] Comment on above: Performed By: #### C BC, PT, PTT, BMP #### [address] [id number] Technology Lead: Good Melendez MD #### ANICOT #### [facility] [address] [place], [place] [id number] Technology Lead: Troy Link MD GFR, Amer 55 mL/min Low >60 [facility] Comment on above: Performed By: #### C BC, PT, PTT, BMP #### [address] [address] Technology Lead: Good Melendez MD #### ANICOT #### [facility] [address] [place], [place] [id number] Technology Lead: Troy Link MD GFR,non Amer 45 mL/min Low >60 [facility] Comment on above: Performed By: #### C BC, PT, PTT, BMP #### [address] [address] Technology Lead: Good Melendez MD #### ANICOT #### [facility] [address] [place], [place] [id number] Technology Lead: Troy Link MD Glucose [Mass/Vol] 141 mg/dL High 70-99 [facility] Comment on above: Performed By: #### C BC, PT, PTT, BMP #### [address] [address] Technology Lead: Good Melendez MD #### ANICOT #### [facility] [address] [place] [address] Technology Lead: Troy Link MD Potassium [Moles/Vol] 5.3 mmol/L Normal 3.7-5.3 [facility] Comment on above: Performed By: #### C BC, PT, PTT, BMP #### [address] [id number] Technology Lead: Good Melendez MD #### ANICOT #### [facility] [address] [place] [address] [phone] Technology Lead: Troy Link MD Sodium [Moles/Vol] 137 mmol/L Normal 135-144 [facility] Comment on above: Performed By: #### C BC, PT, PTT, BMP #### [address] [address] Technology Lead: Good Melendez MD #### ANICOT #### [facility] [address] [place], [place] [id number] Technology Lead: Troy Link MD Urea nitrogen [Mass/Vol] 37 mg/dL High 6-20 [facility] Comment on above: Performed By: #### C BC, PT, PTT, BMP #### [address] [address] Technology Lead: Good Melendez MD #### ANICOT #### [facility] [address] [place], [place] [id number] Technology Lead: Troy Link MD CBCon 05-08-2021 Erythrocyte distribution width (RBC) [Ratio] 14.1 % Normal 11.8-14.4 [facility] Comment on above: Performed By: #### C BC, PT, PTT, BMP #### [address] [address] Technology Lead: Good Melendez MD #### ANICOT #### [facility] [address] [place] [address] Technology Lead: Troy Link MD Hematocrit (Bld) [Volume fraction] 43.6 % Normal 40.7-50.3 [facility] Comment on above: Performed By: #### C BC, PT, PTT, BMP #### [address] [address] Technology Lead: Good Melendez MD #### ANICOT #### [address] [id number] Technology Lead: Troy Link MD Hemoglobin (Bld) [Mass/Vol] 13.5 g/dL Normal 13.0-17.0 [facility] Comment on above: Performed By: #### C BC, PT, PTT, BMP #### [address] [id number] Technology Lead: Good Melendez MD #### ANICOT #### [facility] [address] [place] [address] [id number] Technology Lead: Troy Link MD MCH (RBC) [Entitic mass] 29.4 pg Normal 25.2-33.5 [facility] Comment on above: Performed By: #### C BC, PT, PTT, BMP #### [address] [id number] Technology Lead: Good Melendez MD #### ANICOT #### [facility] [address] [place], [place] [id number] Technology Lead: Troy Link MD MCHC (RBC) [Mass/Vol] 31.0 g/dL Normal 28.4-34.8 [facility] Comment on above: Performed By: #### C BC, PT, PTT, BMP #### [address] [id number] Technology Lead: Good Melendez MD #### ANICOT #### [facility] [address] [place], [place] [id number] Technology Lead: Troy Link MD MCV (RBC) [Entitic vol] 95.0 fL Normal 82.6-102.9 [facility] Comment on above: Performed By: #### C BC, PT, PTT, BMP #### [address] [id number] Technology Lead: Good Melendez MD #### ANICOT #### [address] [address] Technology Lead: Troy Link MD NRBC Automated 0.0 per 100 WBC Normal 0.0 [facility] Comment on above: Performed By: #### C BC, PT, PTT, BMP #### [address] [id number] Technology Lead: Good Melendez MD #### ANICOT #### [facility] [address] [place] [address] Technology Lead: Troy Link MD Platelet mean volume (Bld) [Entitic vol] 8.7 fL Normal 8.1-13.5 [facility] Comment on above: Performed By: #### C BC, PT, PTT, BMP #### [address] [id number] Technology Lead: Good Melendez MD #### ANICOT #### [facility] [address] [place], [place] [id number] Technology Lead: Troy Link MD Platelets (Bld) [#/Vol] 279 10*3/uL Normal 138-453 [facility] Comment on above: Performed By: #### C BC, PT, PTT, BMP #### [facility] [address] [place] [address] Technology Lead: Good Melendez MD #### ANICOT #### [facility] [address] [place] [address] Technology Lead: Troy Link MD RBC (Bld) [#/Vol] 4.59 10*6/uL Normal 4.21-5.77 [facility] Comment on above: Performed By: #### C BC, PT, PTT, BMP #### [address] [address] Technology Lead: Good Melendez MD #### ANICOT #### [facility] [address] [place] [address] Technology Lead: Troy Link MD WBC (Bld) [#/Vol] 8.9 10*3/uL Normal 3.5-11.3 [facility] Comment on above: Performed By: #### C BC, PT, PTT, BMP #### [address] [address] Technology Lead: Good Melendez MD #### ANICOT #### [facility] [address] [place] [address] Technology Lead: Troy Link MD Hematocrit (Bld) [Volume fraction] 43.6 % 40.7 - 50.3 % [facility] Hemoglobin.gastroint estinal spec 1 Ql (Stl) 13.5 g/dL 13.0 - 17.0 g/dL [facility] MCH (RBC) [Entitic mass] 29.4 pg 25.2 - 33.5 pg [facility] MCHC (RBC) [Mass/Vol] 31.0 g/dL 28.4 - 34.8 g/dL [facility] MCV (RBC) [Entitic vol] 95.0 fL 82.6 - 102.9 fL [facility] NRBC Automated 0.0 0.0 per 100 WBC [facility] Platelet distribution width (Bld) [Ratio] 14.1 % 11.8 - 14.4 % [facility] Platelet mean volume (Bld) [Entitic vol] 8.7 fL 8.1 - 13.5 fL [facility] Platelets (Bld) [#/Vol] 279 10*3/uL [facility] RBC (Bld) [#/Vol] 4.59 10*6/uL 4.21 - 5.7 7 m/uL [facility] WBC (Bld) [#/Vol] 8.9 10*3/uL [facility] No Panel Informationon 05-08 [facility] PTon 05-08-2021 INR Coag (PPP) [Relative time] 1.1 {INR} Normal [facility] Comment on above: Result Comment: Therapeutic Range: Moderate Anticoagulant Intensity: INR = 2.0-3.0 High Anticoagulant Intensity: INR = 2.5-3.5 Performed By: #### C BC, PT, PTT, BMP #### [email or web address] [facility] [place], [place] 1894908 Technology Lead: Good Melendez MD #### JIMENA #### [facility] [address] [place] [address] Technology Lead: Troy Link MD PT Coag (PPP) [Time] 11.2 s Normal 9.1-12.3 [facility] Comment on above: Performed By: #### C BC, PT, PTT, BMP #### [email or web address] [facility] [place], [place] [id number] Technology Lead: Good Melendez MD #### YASSINET #### [facility] [address] [place] [address] Technology Lead: Troy Link MD Protime-INRon 05-08-2021 INR Coag (Bld) [Relative time] 1.1 {INR} [facility] Comment on above: Therapeutic Range: Moderate Anticoagulant Intensity: INR = 2.0-3.0 High Anticoagulant Intensity: INR = 2.5-3.5 PT Coag (PPP) [Time] 11.2 s [facility] XR CHEST (2 VW)on 05-08-2021 Radiology Study observation (narrative) [employer] Work Phone: CT LUMBAR SPINE W CONTRASTon 02-28-2021 CT LUMBAR SPINE W CONTRAST [facility] [facility] Department of Radiology [address] [place] [id number] ======== Patient Name: SUKHDEEP SIMENTAL : [...] above Electronically signed: Petar Mg. Transcribed by: [email or web address], User Resident: Electronically Signed by: PETAR MG @ 03/01/2021 02:21 PM [place] [facility] LUMBAR MYELOGRAMon 01-04-202 2 LUMBAR MYELOGRAM [facility] Department of Radiology [address] [place] [address] ======== Patient Name: SUKHDEEP SIMENTAL : 1965 Sex: M Age: Race: White Pt. Location: Patient Status: O Ordered Date: 02/13/2021 9:35:00 AM Completed Date: 02/28/2021 02:06 PM Requesting Provider: JASON MILLER Attending Provider: JASON MILLER Report Copy To: Signs & Symptoms: Z98.1 Arthrodesis status I10 History: [phone] Is patient on thinners? Eliquis hold 48hrs. 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 Consent was obtained. Timeout: Ceylon protocol timeout verification performed. PROCEDURE: Estimated blood [...] report. Electronically signed: Petar Mg. Transcribed by: [email or web address], User Resident: OCHOA HONG Electronically Signed by: PETAR MG @ 02/28/2021 03:13 PM I personally read this/these film(s) with this resident Normal [facility] LUMBAR SPINE 4 OR 5 [facility] LUMBAR SPINE 4 OR 5 [facility] Department of Radiology [address] [place] [id number] ======== Patient Name: SUKHDEEP SIMENTAL : 1965 Sex: M Age: Race: White Pt. Location: 84 Patient Status: D Ordered Date: 02/01/2021 1:05:00 PM Completed Date: 02/01/2021 01:12 PM Requesting Provider: JASON MILLER Attending Provider: JASON MILLER Report Copy To: Signs & Symptoms: M54.16 Radiculopathy, lumbar region I10 History: [place] Comments: Views (X-RAY, LUMBAR SPINE): AP, Lateral, [...] lower lumbosacral spine. Osteopenia. Electronically signed: Ahsan Faremr. Transcribed by: [email or web address], User Resident: Electronically Signed by: AHSAN FARMER @ 02/02/2021 10:14 AM Normal [facility] Comment on above: Order Comment: Views (X-RAY, LUMBAR SPINE): AP, Lateral, L5-S1 Spot, Flexion, Extension C REACTIVE PROTEINon 021 CRP [Mass/Vol] 9.6 mg/L High 0.0-7.[address] [facility] Comment on above: Performed By: #### 6 1405 #### [facility] [address] CBC W/DIFFon 12-15-2020 ABS IMM GRANS 0.1 10*3/uL Normal 0.0-0.2 The [facility] Comment on above: Performed By: #### 5 6505, 947[address] #### [facility] [address] [place] [address], [facility] ABS NEUTROPHILS 6.1 10*3/uL Normal 1.6-7.6 The [facility] Comment on above: Performed By: #### 5 6505, 74408 #### [facility] [address] [place] [address], [facility] Basophils (Bld) [#/Vol] 0.1 10*3/uL Normal 0.0-0.2 [facility] Comment on above: Performed By: #### 5 6505, 60367 #### [facility] [address] [place] [address], [facility] Basophils/100 WBC (Bld) 0.8 % Normal 0.0-1.0 [facility] Comment on above: Performed By: #### 5 6505, 49236 #### [facility] [address] [facility] [place] [address], [facility] Eosinophils (Bld) [#/Vol] 0.4 10*3/uL Normal 0.0-0.5 [facility] Comment on above: Performed By: #### 5 6505, 64151 #### [facility] [address] [facility] [place] [address], [facility] Eosinophils/100 WBC (Bld) 4.1 % Normal 0.0-6.0 [facility] Comment on above: Performed By: #### 5 6505, 64854 #### [facility] [address] [facility] [place] [address], [facility] Erythrocyte distribution width (RBC) [Ratio] 12.6 % Normal 11.5-15.0 [facility] Comment on above: Performed By: #### 5 6505, 28083 #### [facility] [address] [place] [address], [facility] Hematocrit (Bld) [Volume fraction] 40.2 % Normal 39.0-50.0 [facility] Comment on above: Performed By: #### 5 6505, 94143 #### [facility] [address] [place] [address], [facility] Hemoglobin (Bld) [Mass/Vol] 12.6 g/dL Low 13.0-17.0 [facility] Comment on above: Performed By: #### 5 6505, 49359 #### [facility] [address] [facility] [place] [place] [address], [facility] IMMATURE GRANS 0.7 % Normal 0.0-1.0 The [facility] Comment on above: Performed By: #### 5 6505, 10826 #### [facility] [address] [facility]. [address] Lymphocytes (Bld) [#/Vol] 2.0 10*3/uL Normal 1.2-4.0 [facility] Comment on above: Performed By: #### 5 6505, 33503 #### [facility] [address] [facility] [place] [address], [facility] Lymphocytes/100 WBC (Bld) 20.6 % Normal 20.0-45.0 [facility] Comment on above: Performed By: #### 5 6505, 65318 #### [facility] [address] [facility] [place] [address], [facility] MCH (RBC) [Entitic mass] 30.0 pg Normal 27.0-33.0 [facility] Comment on above: Performed By: #### 5 6505, 63060 #### [facility] [address] [place] [address], [facility] MCHC (RBC) [Mass/Vol] 31.3 g/dL Low 32.0-35.0 [facility] Comment on above: Performed By: #### 5 6505, 22686 #### [facility] [address] [place] [address], [facility] MCV (RBC) [Entitic vol] 95.7 fL Normal 82.0-98.0 [facility] Comment on above: Performed By: #### 5 6505, 32176 #### [facility] [address] [place] [address], [facility] Monocytes (Bld) [#/Vol] 1.2 10*3/uL High 0.1-1.0 [facility] Comment on above: Performed By: #### 5 6505, 54884 #### [facility] [address] [place] [address], [facility] MONOS 11.9 % Normal 5.0-12.0 [facility] Comment on above: Performed By: #### 5 6505, 87862 #### [facility] [address] [facility] [place] [address], [facility] Neutrophils/100 WBC (Bld) 61.9 % Normal 40.0-72.0 [facility] Comment on above: Performed By: #### 5 6505, 80112 #### [facility] [address] [place] [address], [facility] Nucleated RBC/100 WBC (Bld) [Ratio] 0 % Normal 0-0 [facility] Comment on above: Performed By: #### 5 6505, 86227 #### [facility] [address] [place] [address], [facility] PLAT CNT 335 10*3/uL Normal 150-[address] [facility] Comment on above: Performed By: #### 5 6505, 75106 #### [facility] [address] [place] [id number], [facility] RBC (Bld) [#/Vol] 4.20 10*6/uL Normal 4.20-5.70 [facility] Comment on above: Performed By: #### 5 6506, 71047 #### [facility] [address] [facility]. [address] WBC (Bld) [#/Vol] 9.86 10*3/uL Normal 4.00-10.60 The [facility] Comment on above: Performed By: #### 5 6506, 78358 #### [facility] [address] [facility] [place] [place] [id number] [place] [address] KNEE RIGHT 4 VWSon KNEE RIGHT 4 S [facility] Department of Radiology [address] [place] [address] ======== Patient Name: SUKHDEEP SIMENTAL [...] report. Electronically signed: Layo Jimenes. Transcribed by: [email or web address], User Resident: LAYO CORDERO Electronically Signed by: LAYO JIMENES @ 12/16/2020 09:18 AM I personally read this/these film(s) with this resident Normal [facility] Comment on above: Order Comment: evalu ate SEDIMENTATION RATEon 021 SED RATE 77 mm/hr High 0-10 [facility] Comment on above: Performed By: #### 5 6506, 16232 #### [facility] [address] COVID-19 Positive/Negativeon 05-05-2020 COVID-19 Positive/Negative Negative Negative [facility] Comment on above: Reference: NegativeT esting for SARS-CoV-2 by RT-PCRThis test was developed and its performance characteristics determined by [employer] ([employer]) and validated at the [facility]. This test has not been FDA cleared [...] among non-blacks MDRD (S/P/Bld) [Vol rate/Area] mL/min/{1.73_m2} [facility] Otheron 05-05-2020 GFR/1.73 sq M.predicted MDRD (S/P/Bld) [Vol rate/Area] mL/min/{1.73_m2} [facility] Comment on above: GFR estimated refere nce range: According to KDOQI guidelines, <60 ml/min/1.73m2 is sufficient to diagnose a patient with chronic kidney disease. Pharmacy Creatinine Clearance (Chem N/A [facility] Coronavirus 2019 PCR Interp N/A [facility] Serum or plasma calcium yeni urement (mass/volume)on 05-05-2020 Calcium [Mass/Vol] 8.6 mg/dL 8.2-10.2 [facility] Serum or plasma chloride xi surement (moles/volume)on 05-05-2020 Chloride [Moles/Vol] 104 mmol/L 95-114 [facility] Serum or plasma creatinine m easurement with calculation of estimated glomerular filtron 05-05-2020 Creatinine [Mass/Vol] 1.14 mg/dL 0.64-1.27 [facility] Serum or plasma glucose yeni urement (mass/volume)on 05-05-2020 Glucose [Mass/Vol] 178 mg/dL 70-100 [facility] Comment on above: ADA recommended refe rence rangeRandom Glucose Reference Range is dependent on time and content of last meal. Glucose of more than 200 mg/dL in a nonstressed, ambulatory subject supports the diagnosis of Diabetes Mellitus. Serum or plasma potassium me asurement (moles/volume)on 05-05-2020 Potassium [Moles/Vol] 4.0 mmol/L 3.5-5.1 [facility] Serum or plasma sodium measu rement (moles/volume)on 05-05-2020 Sodium [Moles/Vol] 141 mmol/L 136-146 [facility] Serum or plasma total carbon dioxide measurement (moles/volume)on 05-05-2020 CO2 [Moles/Vol] 27.4 mmol/L 22.0-30.0 [facility] Serum or plasma urea nitroge n measurement (mass/volume)on 05-05-2020 Urea nitrogen [Mass/Vol] 18 mg/dL 9-23 [facility] .eGFRon 06-10-2019 eGFR AA >60 Normal >=60 [facility] Comment on above: Result Comment: Resu lt = 0-14.9 mL/min/1.73 m2 Kidney failure or Dialysis Result = 15-29 mL/min/1.73 m2 Severe decrease in GFR Result = 30-59 mL/min/1.73 m2 Moderate decrease in GFR Result >= 60 mL/min/1.73 m2 Normal or increased GFR Performed By: #### E GFR #### [address] [address] eGFR Non-AA >60 Normal >=60 [facility] Comment on above: Result Comment: Resu [...] dosing. Performed By: #### E GFR #### [address] [address] Basic Metabolic Profileon Anion gap [Moles/Vol] 15 mmol/L Normal 7-17 [facility] Comment on above: Performed By: #### C [id number] #### [address] [address] Calcium [Mass/Vol] 9.8 mg/dL Normal 8.5-10.3 [facility] Comment on above: Performed By: #### C [id number] #### [address] [address] Chloride [Moles/Vol] 103 mmol/L Normal 98-110 [facility] Comment on above: Performed By: #### C [id number] #### [address] [address] CO2 [Moles/Vol] 27 mmol/L Normal 22-32 [facility] Comment on above: Performed By: #### C [id number] #### [address] [address] Creatinine [Mass/Vol] 0.98 mg/dL Normal 0.61-1.24 [facility] Comment on above: Performed By: #### C [id number] #### [address] [address] Glucose [Mass/Vol] 198 mg/dL High 70-99 [facility] Comment on above: Performed By: #### C [id number] #### [address] [address] Potassium [Moles/Vol] 4.0 mmol/L Normal 3.4-4.8 [facility] Comment on above: Performed By: #### C [id number] #### [address] [address] Sodium [Moles/Vol] 141 mmol/L Normal 133-142 [facility] Comment on above: Performed By: #### C [id number] #### [address] [address] Urea nitrogen [Mass/Vol] 18 mg/dL Normal 8-26 [facility] Comment on above: Performed By: #### C [id number] #### [address] [address] Urea nitrogen/Creatinine [Mass ratio] 18.4 mg/mg Normal 10.0-20.0 [facility] Comment on above: Performed By: #### C [id number] #### [address] [address] CBCon 06-10-2019 Erythrocyte distribution width (RBC) [Ratio] 13.0 % Normal 11.6-14.8 [facility] Comment on above: Performed By: #### C BCI #### [address] [address] Hematocrit (Bld) [Volume fraction] 46.2 % Normal 41.0-53.0 [facility] Comment on above: Performed By: #### C BCI #### [address] [address] Hemoglobin (Bld) [Mass/Vol] 16.2 g/dL Normal 13.5-17.5 [facility] Comment on above: Performed By: #### C BCI #### [address] [address] MCH (RBC) [Entitic mass] 32.1 pg Normal 27.0-35.0 [facility] Comment on above: Performed By: #### C BCI #### [address] [address] MCHC (RBC) [Mass/Vol] 35.0 % Normal 31.0-37.0 [facility] Comment on above: Performed By: #### C BCI #### [address] [address] MCV (RBC) [Entitic vol] 91.6 fL Normal 80.0-100.0 [facility] Comment on above: Performed By: #### C BCI #### [address] [address] Platelet mean volume (Bld) [Entitic vol] 7.5 fL Normal 6.7-10.6 [facility] Comment on above: Performed By: #### C BCI #### [address] [address] Platelets (Bld) [#/Vol] 263 x10*3/mcL Normal 150-350 [facility] Comment on above: Performed By: #### C BCI #### [address] [address] RBC (Bld) [#/Vol] 5.04 x10*6/mcL Normal 4.30-5.80 [facility] Comment on above: Performed By: #### C BCI #### [address] [address] WBC (Bld) [#/Vol] 9.7 x10*3/mcL Normal 4.5-11.0 [facility] Comment on above: Performed By: #### C BCI #### [address] [address] Hgb A1con 06-10-2019 HbA1c (Bld) [Mass fraction] 134 mg/dL High 68-114 [facility] Comment on above: Result Comment: Math ematical Calc approx. The mean gluc equivalency of A1c Performed By: #### H BA1C #### [address] [address] HbA1c (Bld) [Mass fraction] 6.3 % A1c High 4.0-5.6 [facility] Comment on above: Result Comment: Refe rence Range: 4.0 - 5.6 % Normal 5.7 - 6.4 % Pre-Diabetes > 6.5 % Diabetes Performed By: #### H BA1C #### [address] [address] MRSA, PCRon 06-10-2019 INR Coag (Bld) [Relative time] Negative Normal [facility] Comment on above: Result Comment: The [email or web address] Xpert MRSA Assay is a qualitative in [...] clinician. Performed By: #### M RSAPC #### [address] [address] PTon 06-10-2019 INR Coag (PPP) [Relative time] 1.0 {INR} Normal <=3.5 [facility] Comment on above: Result Comment: INR has no normal range. INR Therapeutic range is: 2.0-3.0 (AF, CVA, TIAs, DVT prophylaxis, acute DVT) 2.5-3.5 [facility], recurrent [facility]/emboli) Performed By: #### P TINR #### [address] [address] PT Coag (PPP) [Time] 11.9 s Normal 8.9-11.9 [facility] Comment on above: Performed By: #### P TINR #### [address] [address] PTTon 06-10-2019 aPTT Coag (Bld) [Time] 23.0 s Normal 19.2-27.8 [facility] Comment on above: Performed By: #### P TT #### [address] [address] XR Chest 2 Viewson 0 XR Chest [...] Electronically Signed in Other Vendor System) Normal [facility] XR LUMBAR SPINE (2-3 VIEWS)o n [...] Juwan Kumar MD 04/16/19 Final result Normal [facility] Limited range of motion without evidence of instability. Multilevel disc degeneration. [facility] [place] EXAMINATION: 2 XRAY VIEWS OF THE LUMBAR SPINE 04/16/2019 10:21 am COMPARISON: None. HISTORY: ORDERING SYSTEM PROVIDED HISTORY: Injury Back pain after fall. FINDINGS: Lateral flexion extension views of the lumbar spine. With extension, no instability. Range of motion is reduced. With flexion, no substantial interval movement. No pathologic malalignment. Diffuse disc degeneration greatest in the lower lumbar spine. Spinous processes appear intact. [facility] [place] Josafat, Mhpn Incoming Radiant Results From [employer] - 04/16/2019 11:16 AM EST EXAMINATION: 2 [...] without evidence of instability. Multilevel disc degeneration. [facility] [place] CT LUMBAR SPINE WO CONTRASTo n 04-11-2019 [...] Ahsan Guidry MD 04/11/19 Final result Normal [facility] XR PELVIS (1-2 VIEWS)on 03-28 [...] Ahsan Guidry MD 04/11/19 Final result Normal [facility] No acute findings. [employer] Phone: EXAMINATION: ONE XRA Y VIEW OF THE PELVIS 04/11/2019 1:24 pm COMPARISON: None. HISTORY: ORDERING SYSTEM PROVIDED HISTORY: fall right buttock pain TECHNOLOGIST PROVIDED HISTORY: fall right buttock pain Reason for Exam: fall buttocks pain Acuity: Acute Type of Exam: Initial FINDINGS: No acute fracture. No widening of the sacroiliac joints. Degenerative changes within the lower lumbar spine. Mild bilateral hip osteoarthritis. [employer] Phone: Josafat, Mhpn Incoming Radiant Results From [facility] [employer] - 04/11/2019 2:02 PM EST EXAMINATION: ONE [...] bilateral hip osteoarthritis. IMPRESSION: No acute findings. [employer] Work Phone: Vital Signs Date Time Vital Sign Value Performing Clinician Facility 02-13-2024 11:22-0500 Body mass index (BMI) [Ratio] 38.99 kg/m2 Ahsan Flynn PA Work Phone: [facility] 02-13-2024 11:22-0500 Body weight 119.75 kg Ahsan Flynn PA Work Phone: [facility] 02-13-2024 11:22-0500 Diastolic blood pressure 100 mm[Hg] Ahsan Flynn PA Work Phone: [facility] 02-13-2024 11:22-0500 Heart rate 92 /min Ahsan Flynn PA Work Phone: [facility] 02-13-2024 11:22-0500 Respiratory rate 18 /min Ahsan Flynn PA Work Phone: [facility] 02-13-2024 11:22-0500 Systolic blood pressure 150 mm[Hg] Ahsan Flynn PA Work Phone: [facility] 12-05-2023 10:05-0400 Body height 175.3 cm Ahsan Flynn PA Work Phone: [facility] 12-05-2023 10:05-0400 Body mass index (BMI) [Ratio] 39.28 kg/m2 Ahsan Flynn PA Work Phone: [facility] 12-05-2023 10:05-0400 Body weight 120.66 kg Ahsan Flynn PA Work Phone: [facility] 12-05-2023 10:05-0400 Diastolic blood pressure 90 mm[Hg] Ahsan NOVAK Work Phone: [facility] 12-05-2023 10:05-0400 Heart rate 91 /min Ahsan NOVAK Work Phone: [facility] 12-05-2023 10:05-0400 Respiratory rate 16 /min Ahsan NOVAK Work Phone: [facility] 12-05-2023 10:05-0400 SaO2% (BldA) [Mass fraction] 95 % Ahsan NOVAK Work Phone: [facility] 12-05-2023 10:05-0400 Systolic blood pressure 131 mm[Hg] Ahsan NOVAK Work Phone: [facility] 11-07-2023 11:09-0400 Body height 175.26 cm [facility] 11-07-2023 11:09-0400 Body mass index (BMI) [Ratio] 39 kg/m2 [facility] 11-07-2023 11:09-0400 Body temperature 97.4 [degF] [facility] 11-07-2023 11:09-0400 Body weight 119.86 kg [facility] 11-07-2023 11:09-0400 Diastolic blood pressure 85 mm[Hg] [facility] 11-07-2023 11:09-0400 Heart rate 88 /min [facility] 11-07-2023 11:09-0400 Respiratory rate 18 /min [facility] 11-07-2023 11:09-0400 SaO2% (BldA) [Mass fraction] 98 % [facility] 11-07-2023 11:09-0400 Systolic blood pressure 123 mm[Hg] [facility] 08-15-2023 11:27-0400 Diastolic blood pressure 84 mm[Hg] Ahsan NOVAK Work Phone: [facility] 08-15-2023 11:27-0400 Heart rate 110 /min Ahsan NOVAK Work Phone: [facility] 08-15-2023 11:27-0400 Respiratory rate 20 /min [facility]ienberg [facility] 08-15-2023 11:27-0400 Systolic blood pressure 126 mm[Hg] Ahsan Nienberg PA Work Phone: [facility] 02-14-2023 11:12-0500 Body height 175.3 cm Ahsan Nienberg PA Work Phone: [facility] 02-14-2023 11:12-0500 Body mass index (BMI) [Ratio] 39.43 kg/m2 Ahsan Nienberg PA Work Phone: [facility] 02-14-2023 11:12-0500 Body weight 121.11 kg Ahsan Nienberg PA Work Phone: [facility] 02-14-2023 11:12-0500 Diastolic blood pressure 94 mm[Hg] Ahsan Nienberg PA Work Phone: [facility] 02-14-2023 11:12-0500 Heart rate 89 /min Ahsan [facility]ienberg PA [facility] 02-14-2023 11:12-0500 Respiratory rate 18 /min Ahsan Nienberg PA Work Phone: [facility] 02-14-2023 11:12-0500 SaO2% (BldA) [Mass fraction] 98 % Ahsan Nienberg PA Work Phone: [facility] 02-14-2023 11:12-0500 Systolic blood pressure 143 mm[Hg] Ahsan Nienberg PA Work Phone: [facility] 02-07-2023 14:37-0500 Body temperature 98.6 [degF] Riddhi Goss [employer] OPERATOR Work Phone: [facility] 02-07-2023 14:37-0500 Body weight 122.92 kg Riddhi Goss [employer] OPERATOR Work Phone: [facility] 02-07-2023 14:37-0500 Diastolic blood pressure 80 mm[Hg] Riddhi Goss [employer] OPERATOR Work Phone: [facility] 02-07-2023 14:37-0500 Heart rate 79 /min Riddhi Goss [employer] OPERATOR Work Phone: [facility] 02-07-2023 14:37-0500 SaO2% (BldA) [Mass fraction] 98 % Riddhibrayan Goss [employer] OPERATOR Work Phone: [facility] 02-07-2023 14:37-0500 Systolic blood pressure 157 mm[Hg] Riddhi Goss [employer] OPERATOR Work Phone: [facility] 02-04-2023 09:16-0500 Blood Pressure Location Ceeclia MURILLO [facility] 02-04-2023 09:16-0500 Diastolic blood pressure 88 mm[Hg] Cecelia MURILLO [facility] 02-04-2023 09:16-0500 Heart rate 79 /min Cecelia MURILLO [facility] 02-04-2023 09:16-0500 Respiratory rate 16 /min Cecelia MURILLO [facility] 02-04-2023 09:16-0500 Systolic blood pressure 139 mm[Hg] Cecelia MURILLO [facility] 12-20-2022 14:26-0400 Body height 175.3 cm Singh Morgan PA-C Work Phone: [facility] 12-20-2022 14:26-0400 Body weight 123.11 kg Singh Morgan PA-C Work Phone: [facility] 12-20-2022 14:26-0400 Diastolic blood pressure 84 mm[Hg] Singh Morgan PA-C Work Phone: [facility] 12-20-2022 14:26-0400 Heart rate 76 /min Singh NOVAK-C Work Phone: [facility] 12-20-2022 14:26-0400 SaO2% (BldA) [Mass fraction] 97 % Singh NOVAK-C Work Phone: [facility] 12-20-2022 14:26-0400 Systolic blood pressure 165 mm[Hg] Singh NOVAK-C Work Phone: [facility] 12-06-2022 15:00-0400 Body height 175.26 cm Oumou Reji Other [facility] Other 12-06-2022 15:00-0400 Body mass index (BMI) [Ratio] 39.9 kg/m2 Oumou Reji Other [facility] Other 12-06-2022 15:00-0400 Body temperature 98.1 [degF] Oumou Reji Other [facility] Other 12-06-2022 15:00-0400 Body weight 122.56 kg Oumou Reji Other [facility] Other 12-06-2022 15:00-0400 Diastolic blood pressure 81 mm[Hg] Oumou Reji Other [facility] Other 12-06-2022 15:00-0400 Respiratory rate 20 /min Oumou Reji Other [facility] Other 12-06-2022 15:00-0400 SaO2% (BldA) [Mass fraction] 97 % Oumou Reji Other [facility] Other 12-06-2022 15:00-0400 Systolic blood pressure 127 mm[Hg] Oumou Weinstein Other [facility] [employer] Other 11-05-2022 14:17-0400 Body height 175.3 cm Thomas Mathew MD Work Phone: [facility] 11-05-2022 14:17-0400 Body weight 123.97 kg Thomas Mathew MD Work Phone: [facility] 11-05-2022 14:17-0400 Diastolic blood pressure 84 mm[Hg] Thomas Mathew MD Work Phone: [facility] 11-05-2022 14:17-0400 Heart rate 66 /min Thomas Mathew MD Work Phone: [facility] 11-05-2022 14:17-0400 SaO2% (BldA) [Mass fraction] 100 % Thomas Mathew MD Work Phone: [facility] 11-05-2022 14:17-0400 Systolic blood pressure 156 mm[Hg] Thomas Mathew MD Work Phone: [facility] 10-17-2022 15:41-0400 Blood Pressure Location Maite SQUIRES [facility] [place] 10-17-2022 15:41-0400 Diastolic blood pressure 84 mm[Hg] Maite SQUIRES [facility] [place] 10-17-2022 15:41-0400 Heart rate 70 /min Maite SQUIRES [facility] [place] 10-17-2022 15:41-0400 Respiratory rate 16 /min Maite SQUIRES [facility] [place] 10-17-2022 15:41-0400 Systolic blood pressure 118 mm[Hg] Maite SQUIRES [facility] [place] 06-21-2022 10:20-0400 Body height 175.26 cm Oumou Reji Other [facility] Other 06-21-2022 10:20-0400 Body mass index (BMI) [Ratio] 40.02 kg/m2 Oumou Reji Other [facility] Other 06-21-2022 10:20-0400 Body temperature 97.6 [degF] Oumou Reji Other [facility] Other 06-21-2022 10:20-0400 Body weight 122.93 kg Oumou Reji Other [facility] Other 06-21-2022 10:20-0400 Diastolic blood pressure 80 mm[Hg] Oumou Reji Other [facility] Other 06-21-2022 10:20-0400 Respiratory rate 20 /min Oumou Reji Other [facility] Other 06-21-2022 10:20-0400 SaO2% (BldA) [Mass fraction] 97 % Oumou Reji Other [facility] Other 06-21-2022 10:20-0400 Systolic blood pressure 114 mm[Hg] Oumou Reji Other [facility] Other 03-19-2022 09:48-0500 Blood Pressure Location Cecelia MURILLO [facility] 03-19-2022 09:48-0500 Diastolic blood pressure 88 mm[Hg] Cecelia MURILLO [facility] 03-19-2022 09:48-0500 Heart rate 78 /min Cecelia MURILLO [facility] 03-19-2022 09:48-0500 Respiratory rate 16 /min Cecelia MURILLO [facility] 03-19-2022 09:48-0500 Systolic blood pressure 139 mm[Hg] Cecelia MURILLO [facility] 01-11-2022 11:15-0500 Body temperature 98.1 [degF] PHYSICIAN NO [facility] 01-11-2022 11:15-0500 Diastolic blood pressure 88 mm[Hg] PHYSICIAN NO [facility] 01-11-2022 11:15-0500 Heart rate 79 /min PHYSICIAN NO [facility] 01-11-2022 11:15-0500 Respiratory rate 18 /min PHYSICIAN NO [facility] 01-11-2022 11:15-0500 SaO2% (BldA) [Mass fraction] 96 % PHYSICIAN NO [facility] 01-11-2022 11:15-0500 Systolic blood pressure 137 mm[Hg] PHYSICIAN NO [facility] 12-15-2021 12:20-0400 Body height 175.26 cm Estephanie Lowry Other [facility] [employer] Other 12-15-2021 12:20-0400 Body mass index (BMI) [Ratio] 41.49 kg/m2 Estephanie Lowry Other [facility] Other 12-15-2021 12:20-0400 Body temperature 98.6 [degF] Estephanie Lowry Other [facility] Other 12-15-2021 12:20-0400 Body weight 127.46 kg Estephanie Lowry Other [facility] Other 12-15-2021 12:20-0400 Diastolic blood pressure 96 mm[Hg] Estephanie Lowry Other [facility] Other 12-15-2021 12:20-0400 Respiratory rate 18 /min Estephanie Lowry Other [facility] Other 12-15-2021 12:20-0400 SaO2% (BldA) [Mass fraction] 97 % Estephanie Lowry Other [facility] Other 12-15-2021 12:20-0400 Systolic blood pressure 132 mm[Hg] Estephanie Lowry Other [facility] Other 10-25-2021 14:00-0400 Body height 175.26 cm Oumou Reji Other [facility] Other 10-25-2021 14:00-0400 Body mass index (BMI) [Ratio] 42.02 kg/m2 Oumou Reji Other [facility] Other 10-25-2021 14:00-0400 Body temperature 96.8 [degF] Oumou Reji Other [facility] Other 10-25-2021 14:00-0400 Body weight 129.09 kg Oumou Reji Other [facility] Other 10-25-2021 14:00-0400 Diastolic blood pressure 69 mm[Hg] Oumou Reji Other [facility] Other 10-25-2021 14:00-0400 Respiratory rate 20 /min Oumou Reji Other [facility] Other 10-25-2021 14:00-0400 SaO2% (BldA) [Mass fraction] 98 % Oumou Reji Other [facility] Other 10-25-2021 14:00-0400 Systolic blood pressure 109 mm[Hg] Oumou Reji Other [facility] Other 05-26-2021 10:45-0400 Body temperature 98.8 [degF] Octavio Mcclellan [employer] Work Phone: [employer] 05-26-2021 10:45-0400 Respiratory rate 18 /min Octavio Mcclellan [employer] Work Phone: [employer] 05-26-2021 10:45-0400 SaO2% (BldA) [Mass fraction] 98 % Octavio Mcclellan [employer] Work Phone: [employer] 05-26-2021 07:30-0400 Heart rate 105 /min Octavio Mcclellan [employer] Work Phone: [employer] 05-25-2021 23:20-0400 Diastolic blood pressure 85 mm[Hg] Octavio Mcclellan [employer] Work Phone: [employer] 05-25-2021 23:20-0400 Systolic blood pressure 130 mm[Hg] Octavio Mcclellan [employer] Work Phone: [employer] 05-24-2021 10:15-0400 Body height 175.3 cm Octavio Mcclellan [employer] Work Phone: [employer] 05-24-2021 10:15-0400 Body mass index (BMI) [Ratio] 50.65 kg/m2 Octavio Mcclellan [employer] Work Phone: [employer] 05-24-2021 10:15-0400 Body weight 155.58 kg Octavio Mcclellan [employer] Work Phone: [employer] 05-08-2021 11:04-0400 Body height 175.3 cm Stvz 2 [employer] 05-08-2021 11:04-0400 Body mass index (BMI) [Ratio] 51.98 kg/m2 [address] 05-08-2021 11:04-0400 Body temperature 97.3 [degF] [address] 05-08-2021 11:04-0400 Body weight 159.[address] 05-08-2021 11:04-0400 Diastolic blood pressure 83 mm[Hg] [address] 05-08-2021 11:04-0400 Heart rate 126 /min [address] 05-08-2021 11:04-0400 Respiratory rate 20 /min [address] [employer] 05-08-2021 11:04-0400 SaO2% (BldA) [Mass fraction] 95 % [address] 05-08-2021 11:04-0400 Systolic blood pressure 121 mm[Hg] [address] 01-08-2020 14:04-0500 BMI (Body Mass Index) 47.99 kg/m2 [facility] 01-08-2020 14:04-0500 Body Temperature 96.69 [degF] [facility] 01-08-2020 14:04-0500 Body weight 147.42 kg [facility] 01-08-2020 14:04-0500 Height 175.3 cm [facility] 04-11-2019 12:42-0500 BMI (Body Mass Index) 44.3 kg/m2 [employer] Work Phone: 04-11-2019 12:42-0500 Body Temperature 97.39 [degF] [employer] Work Phone: 04-11-2019 12:42-0500 Body weight 136.08 kg [employer] Work Phone: 04-11-2019 12:42-0500 BP Diastolic 98 mm[Hg] [employer] Phone: 04-11-2019 12:42-0500 BP Systolic 196 mm[Hg] [employer] Phone: 04-11-2019 12:42-0500 Height 175.3 cm [employer] Phone: 04-11-2019 12:42-0500 Pulse (Heart Rate) 72 /min [employer] Phone: 04-11-2019 12:42-0500 Pulse Oximetry 96 % [employer] Phone: 04-11-2019 12:42-0500 Respiratory Rate 16 /min [employer] Phone: Encounters Encounter Date Encounter Type Care Provider Facility Start: 11-19-2024 End: 11-19-2024 ambulatory Yarely Canada Facility:[facility] [place] Start: 11-19-2024 End: 11-19-2024 Patient encounter procedure Yarely Canada [facility] [employer] Start: 11-13-2024 End: 11-13-2024 ambulatory Cecelia Fernandez Facility:[id number] Start: 08-07-2024 End: 08-07-2024 ambulatory Cecelia MURILLO Facility:[facility] Start: 08-07-2024 End: 08-07-2024 Patient encounter procedure Cecelia MRUILLO [facility] [employer] Start: 06-22-2024 End: 06-22-2024 ambulatory Cecelia MURILLO Facility:[facility] Start: 06-17-2024 End: 06-17-2024 ambulatory [facility] Start: 05-18-2024 ambulatory [facility] Start: 05-18-2024 End: 05-18-2024 ambulatory [facility] Start: 04-10-2024 End: 04-21-2024 Telephone encounter Cherelle Oleary RN [facility] Start: 03-03-2024 End: 03-04-2024 Telephone encounter Cherelle Oleary RN [facility] Start: 02-13-2024 End: 02-13-2024 ambulatory AHSAN FLYNN [facility] Start: 02-13-2024 End: 02-13-2024 Office outpatient visit 15 minutes Ahsan Flynn PA Work Phone: [facility] Comment on above: Spinal stenosis, lum bar region, with neurogenic claudication (Primary Dx) Start: 02-03-2024 End: 02-03-2024 ambulatory Cecelia MURILLO Facility:[facility] Start: 02-03-2024 End: 02-03-2024 Patient encounter procedure Cecelia MURILLO [facility] Start: 12-05-2023 End: 12-05-2023 ambulatory AHSAN FLYNN [facility] Start: 12-05-2023 End: 12-05-2023 Office outpatient visit 15 minutes Ahsan Flynn PA Work Phone: [facility] Comment on above: Spinal stenosis, lum bar region, with neurogenic claudication (Primary Dx) Start: 11-07-2023 End: 11-07-2023 ambulatory [facility] Work Phone: Start: 11-07-2023 End: 11-07-2023 Patient encounter procedure [facility] Work Phone: Start: 10-29-2023 Non-patient / Non-visit [facility] Work Phone: Start: 10-07-2023 End: 06-25-2024 Telephone encounter Thomas Mathew MD Work Phone: Neurology Comment on above: Appointment Start: 10-04-2023 Telephone encounter Thomas crabtree MD Work Phone: Neurology Comment on above: Results Start: 08-15-2023 End: 08-15-2023 Office outpatient visit 15 minutes Ahsan NOVAK Work Phone: [facility] Comment on above: Spinal stenosis, lum bar region, with neurogenic claudication (Primary Dx) Start: 08-15-2023 End: 08-15-2023 ambulatory AHSAN FLYNN [facility] Start: 07-30-2023 Telephone encounter Thomas crabtree MD Work Phone: Neurology Comment on above: Appointment; Orders Start: 07-23-2023 Telephone encounter Thomas crabtree MD Work Phone: Neurology Start: 05-08-2023 End: 05-08-2023 ambulatory Thomas Mathew MD Work Phone: Neurosurgery Comment on above: Radiculopathy, lumba r region (Primary Dx) Start: 05-08-2023 End: 05-08-2023 Telemedicine consultation with patient Thomas Mathew MD Work Phone: [facility] Start: 05-08-2023 Telephone encounter Cherelle Oleary RN [facility] Start: 05-07-2023 Telephone encounter Cherelle Oleary RN [facility] Start: 04-16-2023 Telephone encounter Thomas crabtree MD Work Phone: Neurology Comment on above: Imaging Disc Start: 04-10-2023 Telephone encounter Thomas crabtree MD Work Phone: Neurology Comment on above: PT Certification Start: 04-09-2023 Telephone encounter Thomas crabtree MD Work Phone: Neurology Start: 02-14-2023 End: 02-14-2023 Office outpatient visit 15 minutes Ahsan NOVAK Work Phone: [facility] Comment on above: Spinal stenosis, lum bar region, with neurogenic claudication (Primary Dx) Start: 02-07-2023 End: 02-07-2023 Patient encounter procedure Riddhi Goss [employer]UTTER [employer] AMMONIA OPERATOR Work Phone: Neurosurgery Comment on above: 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) Start: 12-21-2022 Telephone encounter Thomas crabtree [...] Evaluation and management of inpatient THOMAS MATHEW Facility:[facility] Start: 12-06-2022 End: 12-06-2022 ambulatory Oumou Reji Other [facility] Other Start: 12-06-2022 Office outpatient vi sit 25 minutes Oumou Reji [facility] Start: 11-21-2022 End: 11-21-2022 ambulatory MAITE GALLOWAY Facility:[facility] Start: 11-21-2022 End: 11-21-2022 ambulatory BLAYNE ISABEL Facility:[facility] Start: 11-21-2022 End: 11-21-2022 ambulatory BLAYNE ISABEL Facility:[facility] Start: 11-21-2022 Encounter for other preprocedural examination BLAYNE ISABEL [facility] Start: 11-05-2022 End: 11-05-2022 Patient encounter procedure Thomas Mathew MD Work Phone: Neurosurgery Comment on above: 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 Facility: Start: 06-21-2022 End: 06-21-2022 ambulatory Oumou Reji Other [facility] Other Start: 06-21-2022 Office outpatient vi sit 25 minutes Oumou Reji [facility] Start: 06-11-2022 End: 06-12-2022 ambulatory OUMOU REJI Facility: Start: 04-03-2022 End: 04-03-2022 ambulatory Oumou Reji Other [facility] Other Start: 04-03-2022 Telephone encounter Oumou Reji [facility] Start: 03-20-2022 Encounter for preprocedural laboratory examination DR DOCTOR MILES [facility] Start: 03-19-2022 End: 03-19-2022 Patient encounter procedure Cecelia MURILLO [facility] Start: 03-15-2022 End: 03-16-[address] DOCTOR MILES Facility:[facility] Start: 03-15-2022 End: 03-16-2022 Encounter for preprocedural laboratory examination DR DOCTOR MILES Facility:[facility] Start: 03-12-2022 End: 03-13-[address] CEECLIA MURILLO . Facility:[facility] Start: 03-08-2022 End: 03-09-[address] DOCTOR MILES Facility:[facility] Start: 01-27-2022 Encounter for genera l adult medical examination without abnormal findings DR BLAYNE ISABEL . [facility] Start: 01-24-2022 End: 01-25-[address] BLAYNE ISABEL . Facility:[facility] Start: 01-24-2022 End: 01-25-2022 Encounter for general adult medical examination without abnormal findings DR BLAYNE ISABEL . Facility:[facility] Start: 01-22-2022 End: 01-22-2022 ambulatory Oumou Reji Other [facility] [employer] Other Start: 01-22-2022 Telephone encounter Oumou Reji [facility] Start: 01-11-2022 End: 01-11-2022 ambulatory PHYSICIAN NO FAMILY Facility:[facility] Start: 01-11-2022 End: 01-11-2022 ambulatory PHYSICIAN NO [facility] Work Phone: Start: 01-11-2022 End: 01-11-2022 Discharged Recurring PHYSICIAN NO FAMILY [facility] - [facility] Start: 01-10-2022 End: 01-10-2022 ambulatory Oumou Reji Other [facility] Other Start: 01-10-2022 Telephone encounter Oumou Reji [facility] Start: 01-02-2022 End: 01-02-2022 ambulatory Oumou Reji Other [facility] Other Start: 01-02-2022 Telephone encounter Oumou Reji [facility] Start: 01-01-2022 End: 01-01-2022 ambulatory Oumou Reji Other [facility] Other Start: 01-01-2022 Telephone encounter Oumou Reji [facility] Start: 12-21-2021 End: 12-22-[address] BLAYNE ISABEL . Facility:[facility] Start: 12-15-2021 Office outpatient vi sit 15 minutes Estephanie Lowry [facility] Start: 12-15-2021 Telephone encounter Oumou Reji [facility] Start: 12-15-2021 End: 12-15-2021 ambulatory Estephanie Lowry [facility] [employer] Other Start: 12-15-2021 End: 12-15-2021 Departed [employer] Estephanie Lowry Work Phone: [facility] [place] Start: 11-24-2021 End: 11-25-2021 ambulatory OUMOU REJI Facility:[facility] Start: 11-15-2021 End: 11-15-2021 ambulatory OUMOU REJI Facility:[facility] Start: 11-14-2021 End: 11-15-2021 ambulatory OUMOU REJI Facility:[facility] Start: 11-01-2021 End: 11-02-[address] BLAYNE ISABEL . Facility:[facility] Start: 10-31-2021 End: 11-01-[address] BLAYNE ISABEL . Facility:[facility] Start: 10-25-2021 End: 10-25-2021 ambulatory Oumou Reji Other [facility] [employer] Other Start: 10-25-2021 Office outpatient ne w 45 minutes Oumou Weinstein [facility] Start: 10-18-2021 End: 10-19-[address] BLAYNE ISABEL . Facility:[facility] Start: 10-17-2021 Encounter for other specified special examinations DR DOCTOR MILES [facility] Start: 10-17-2021 Encounter for preprocedural laboratory examination DR DOCTOR MILES [facility] Start: 10-16-2021 End: 10-17-[address] BLAYNE ISABEL . Facility:[facility] Start: 10-16-2021 End: 10-17-2021 Encounter for other specified special examinations DR DOCTOR MILES Facility:[facility] Start: 10-13-2021 End: 10-21-2021 ambulatory PHYSICIAN BRADFORD Facility:[facility] Start: 10-10-2021 End: 10-11-2021 [...] Evaluation and management of inpatient LEISA PERRY [facility] Start: 05-24-2021 End: 05-26-2021 ambulatory OCTAVIO MCCLELLAN [facility] Start: 05-24-2021 End: 05-26-2021 Subsequent hospital visit by physician Octavio Mcclellan DO Work Phone: [facility] 2C Ortho/Med Surg Comment on above: S/P laparoscopic sle may gastrectomy (Primary Dx) Start: 05-08-2021 End: 05-08-2021 Subsequent hospital visit by physician Jesus Mccracken 2 [facility] Pre-Admit Testing Comment on above: Canceled (Other) Start: 05-08-2021 End: 05-11-2021 ambulatory OCTAVIO Jj [facility] Start: 05-08-2021 End: 05-13-2021 ambulatory OCTAVIO Jj [facility] Start: 05-08-2021 End: 05-10-2021 Patient encounter status Stv Xr [facility] Start: 05-08-2021 End: 05-10-2021 Subsequent hospital visit by physician Glory Mccracken Xr [facility] Comment on above: Pre-op chest exam Start: 05-08-2021 End: 05-12-2021 Subsequent hospital visit by physician Jesus Mccracken 2 [facility] Pre-Admit Testing Start: 05-05-2020 End: 05-05-2020 Patient encounter procedure Blayne Isabel -Pre-Surgical Testing Start: 02-04-2020 End: 02-04-2020 Subsequent hospital visit by physician Suzanne Pruett Work Phone: [facility] Echocardiography Comment on above: Arrived Start: 01-08-2020 End: 01-08-2020 Subsequent hospital visit by physician Alexandro Muhammad Work Phone: [facility] Radiology Start: 01-08-2020 End: 01-08-2020 Office outpatient new 30 minutes Alexandro Muhammad Work Phone: [facility]opedics Comment on above: Fluid retention in l egs (Primary Dx) Start: 06-10-2019 End: 06-11-2019 Patient encounter procedure [facility] Facility:[facility] Start: 04-16-2019 End: 04-19-2019 Patient encounter procedure ARSENIO Leyva [facility] Start: 04-16-2019 End: 04-18-2019 Subsequent hospital visit by physician Xr Room 4 [facility] Comment on above: Injury Start: 04-11-2019 End: 04-11-2019 Emergency department patient visit SUZANNE DAVIES [facility] Start: 04-11-2019 End: 04-11-2019 Emergency department patient visit Suzanne Davies Work Phone: [facility] ED Comment on above: Acute bilateral low back pain with right-sided sciatica (Primary Dx); Traumatic buttock pain Procedures Date Procedure Procedure Detail Performing Clinician Start: 11-13-2024 Cystoscopy Yarely ortega Start: 11-21-2022 Antibody screen BLAYNE ISABEL Comment on above: Order Comment: Speci men Type: BLOOD SPECIMENOrdering Facility: [facility] Address: [address] [place] [address] Performed By: #### T [id number] ####CC MAIN BLOOD BANKCLIA [id number] [address] [place] Start: 02-25-2022 Arthroplasty of knee Scarlet MURILLO Start: 02-25-2022 Lumbar spinal fusion Scarlet MURILLO Start: 01-24-[address] SHERRI MURILLO . Comment on above: Performed By: #### P TT #### [facility] [address] [place] [address] Dr. Hugh Landis Start: 07-13-2021 Cystoscopic removal [...] Cancer Screening Discussion Prostate Cancer Screening Discussion [facility] Start: 01-24-2027 Prostate specific antigen measurement Prostate Cancer Screening Discussion [facility] Start: 08-13-2025 ambulatory Ambulatory Facility:[facility] Start: 02-12-2025 Adult BMI Screening Adult BMI Screening [facility] Start: 02-12-2025 Tobacco Screening Tobacco Screening [facility] Start: 12-04-2024 Adult BMI Screening Adult BMI Screening [facility] Start: 12-04-2024 Tobacco Screening Tobacco Screening [facility] Start: 10-26-2024 Influenza vaccination Influenza Vaccine (Season Ended) [facility] Start: 08-14-2024 Tobacco Screening Tobacco Screening [facility] Start: 02-15-2024 Adult BMI Screening Adult BMI Screening [facility] Start: 02-15-2024 Tobacco Screening Tobacco Screening [facility] Start: 02-13-2024 End: 02-13-2024 Patient encounter procedure 02/13/2024 10:45 AM EST Office Visit [facility] [address] [place] [id number] Ahsan Flynn, PA [address] [place], [place] [id number] [facility] Start: 12-12-2023 Creatinine measurement Serum Creatinine [facility] Start: 12-12-2023 Serum Creatinine Serum Creatinine [facility] Start: 10-27-2023 Covid-19 Vaccine ( season) Covid-19 Vaccine ( season) [facility] Start: 10-27-2023 Influenza vaccination [facility] Start: 10-07-2023 End: 10-07-2023 Follow-up encounter Neurosurgery Comment on above: FOLLOW UP Start: 2023 RSV Vaccine (1 - 1-dose 60+ series) RSV Vaccine (1 - 1-dose 60+ series) [facility] Start: 2023 RSV Vaccine (1 - Risk 60-74 years 1-dose series) RSV Vaccine (1 - Risk 60-74 years 1-dose series) [facility] Start: 08-15-2023 End: 08-15-2023 Patient encounter procedure 08/15/2023 11:15 AM EDT [facility] Visit [facility] [address] [place] [id number] Ahsan Flynn PA [address] [place], [place] [id number] [facility] Start: 05-22-2023 Hemoglobin A1c measurement HbA1C [facility] Start: 05-22-2023 Hemoglobin A1c/Hemoglobin.total in Blood HbA1C [facility] Start: 02-25-2023 Behavioral Health Screening Behavioral Health Screening [facility] Start: 02-25-2023 Depression Assessment Depression Assessment [facility] Start: 01-20-2023 End: 01-19-2024 Radex spine lumbosacral 2/3 views XR LUMBAR LIMITED 2V AP/LAT Radiology Routine Lumbar adjacent segment disease with spondylolisthesis Expected: 01/20/2023, Expires: 01/19/2024 [facility] Work Phone: Comment on above: Expected: 01/20/2023, Expires: Start: 10-26-2022 Covid-19 Vaccine ( season) Covid-19 Vaccine () [facility] Start: 10-26-2022 Influenza vaccination [facility] Start: 05-25-2022 Creatinine measurement Creatinine monitoring [facility] Start: 05-25-2022 Potassium monitoring Potassium monitoring [facility] Start: 05-08-2022 Creatinine measurement Creatinine monitoring [facility] Start: 05-08-2022 Potassium monitoring Potassium monitoring [facility] Start: 02-25-2022 DEPRESSION ASSESSMENT DEPRESSION ASSESSMENT [facility] Start: 01-03-2022 Hemoglobin A1c measurement A1C test (Diabetic or Prediabetic) [facility] Start: 01-03-2022 Lipid panel Lipid screen [facility] Start: 10-26-2021 Influenza vaccination Flu vaccine (Season Ended) [facility] Start: 06-06-2021 End: 06-06-2021 Patient encounter procedure 06/06/2021 Office Visit Oncology Spencer Guy MD [address] [place] [address] [place] Start: 06-02-2021 End: 06-02-2021 Patient encounter procedure 06/02/2021 Office Visit Bariatrics Octavio Mcclellan DO [address] [phone] [facility] Invasive Bariatric Surg Start: 05-24-2021 End: 05-24-2021 Admission to same day surgery center [facility] Comment on above: XI ROBOTIC LAPOROSCOPIC GASTRECTOMY SLEE VE, LIVER BIOPSY, EGD- GI SCHEDULED XI ROBOTIC LAPOROSCO PIC GASTRECTOMY SLEEVE, LIVER BIOPSY, EGD- GI SCHEDULED, POSSIBLE OPEN Start: 05-24-2021 End: 05-24-2021 Laps gstrc rstrictiv px longitudinal gastrectomy [facility] Start: 05-24-2021 Subsequent hospital visit by physician 05/24/2021 Hospital Encounter IP Unit Octavio Mcclellan DO [address] [phone] [facility] Start: 05-19-2021 End: 05-19-2021 Patient encounter procedure 05/19/2021 Appointment Pre-Admission Testing [facility] PRE ADMIT Start: 05-18-2021 End: 05-18-2021 Patient encounter procedure 05/18/2021 Office Visit Bariatrics Octavio Mcclellan DO [address] [phone] [facility] Start: 10-26-2020 Influenza vaccination Flu vaccine (#1) [facility] Start: 04-04-2020 End: 04-04-2020 Office Visit 04/04/2020 Office Visit Cardiovascular Medicine Suzanne Pruett MD [address] [place] [address] [phone] [facility] Start: 02-02-2020 End: 02-02-2020 Office Visit 02/02/2020 Office Visit Cardiovascular Medicine Suzanne Pruett MD [address] [place] [address] [phone] [facility] Start: 10-27-2019 Influenza vaccination INFLUENZA VACCINE (#1) [facility] Start: 10-26-2018 Influenza vaccination Flu vaccine (#1) [employer] Phone: Start: 09-10-2018 PROSTATE CANCER SCREENING DISCUSSION PROSTATE CANCER SCREENING DISCUSSION [facility] Start: 09-10-2013 Administration of varicella zoster vaccine Zoster (Shingles) Vaccine (1 of 2) [facility] Start: 09-10-2013 Colon cancer screen colonoscopy Colon cancer screen colonoscopy [facility] [employer] Phone: Start: 09-10-2013 Colonoscopy COLORECTAL CANCER SCREENING DISCUSSION [facility] Start: 09-10-2013 Prostate specific antigen measurement PROSTATE CANCER SCREENING DISCUSSION [facility] Start: 09-10-2013 Shingles Vaccine (1 of 2) Shingles Vaccine (1 of 2) [facility] Start: 09-10-2013 SHINGRIX VACCINE (1 of 2) SHINGRIX VACCINE (1 of 2) [facility] Start: 09-10-2013 Zoster vaccine hzv live for subcutaneous use ZOSTER (SHINGLES) VACCINE (1 of 2) [facility] Start: 09-10-2008 COLOGUARD (FIT-DNA) COLOGUARD (FIT-DNA) [facility] Start: 09-10-2008 Colonoscopy COLONOSCOPY [facility] Start: 09-10-2008 COLORECTAL CANCER SCREENING COLORECTAL CANCER SCREENING [facility] Start: 09-10-[address] COLONOGRAPHY [facility] Start: 09-10-2008 DIABETES SCREEN DIABETES SCREEN [facility] Start: 09-10-2008 Diabetes Screening Diabetes Screening [facility] Start: 09-10-2008 FECAL OCCULT BLOOD FECAL OCCULT BLOOD [facility] Start: 09-10-2008 Screening for malignant neoplasm of colon [facility] Start: 09-10-2008 SIGMOIDOSCOPY SIGMOIDOSCOPY [facility] Start: 2003 Diabetes screen Diabetes screen [facility] [employer] Phone: Start: 2003 Fasting lipid profile LIPID SCREENING [facility] Start: 2003 Lipid screen Lipid screen [facility] [employer] Phone: Start: 09-10-1998 Lipid 1996 panel - Serum or Plasma Lipid Screening [facility] Start: 09-10-1998 LIPID SCREEN LIPID SCREEN [facility] Start: 09-10-1982 DTaP,Tdap and Td Vaccines (1 - Tdap) DTaP,Tdap and Td Vaccines (1 - Tdap) [facility] Start: 09-10-1982 DTaP/Tdap/Td vaccine (1 - Tdap) DTaP/Tdap/Td vaccine (1 - Tdap) [facility] Start: 09-10-1982 Hepatitis B vaccine (1 of 3 - Risk 3-dose series) Hepatitis B vaccine (1 of 3 - Risk 3-dose series) [facility] Start: 09-10-1982 Pneumococcal Vaccine: 50+ (1 of 2 - PCV) Pneumococcal Vaccine: 50+ (1 of 2 - PCV) [facility] Start: 09-10-1982 Third diphtheria, tetanus and acellular pertussis (DTaP) vaccination TDAP (ADULT) [facility] Start: 09-10-1982 Urine microalbumin profile [facility] Start: 09-10-1981 Adult BMI Follow Up Plan Adult BMI Follow Up Plan [facility] Start: 09-10-1981 Annual PCP Team Chronic Disease Visit Annual PCP Team Chronic Disease Visit [facility] Start: 09-10-1981 BP Controlled (<130/80) BP Controlled (<130/80[facility] Start: 09-10-1981 Depression Screening Depression Screening [facility] Start: 09-10-1981 Diabetic retinal exam Diabetic retinal exam [facility] Start: 09-10-1981 Hepatitis B surface antibody level LDL Cholesterol [facility] Start: 09-10-1981 HEPATITIS C SCREENING HEPATITIS C SCREENING [facility] Start: 09-10-1981 Hepatitis C screening Hepatitis C Screening [facility] Start: 09-10-1981 HIV SCREENING HIV SCREENING [facility] Start: 09-10-1981 HIV screening HIV Screening [facility] Start: 09-10-1981 Tetanus vaccination TETANUS [facility] Start: 09-10-1981 Urine screening for protein Diabetic microalbuminuria test [facility] Start: 09-10-1978 HIV screen HIV screen [facility] Work Phone: Start: 09-10-1978 HIV screening HIV screen [facility] Start: 09-10-1976 HIV screening HIV SCREENING DISCUSSION [facility] Start: 1975 Depression Screen Depression Screen [facility] Start: 1975 Depression Screening Depression Screening [facility] Start: 09-10-1974 DTaP/Tdap/Td vaccine (1 - Tdap) DTaP/Tdap/Td vaccine (1 - Tdap) [facility] [employer] Phone: Start: 09-10-1973 3 comp foot exam completed Diabetic Foot Exam [facility] Start: 09-10-1973 Diabetic foot examination Diabetic foot exam [facility] Start: 09-10-1973 Glaucoma screening Dilated Retinal Exam [facility] Start: 09-10-1973 Hepatitis B screening Urine Albumin:Creatinine Ratio [facility] Start: 09-10-1973 Hepatitis C antibody, confirmatory test Dilated Retinal Exam [facility] Start: 09-10-1969 Pneumococcal 0-64 years Vaccine (1 of 2 - PPSV23) Pneumococcal 0-64 years Vaccine (1 of 2 - PPSV23) [facility] Start: 09-10-1969 Pneumococcal vaccination [facility] Start: 09-10-1968 COVID-19 Vaccine (1) COVID-19 Vaccine (1) [facility] Start: 03-13-1964 COVID-19 VACCINE (#1) COVID-19 VACCINE (#1) [facility] Start: 1965 Hepatitis C antibody, confirmatory test HEPATITIS C VIRUS SCREENING [facility] Start: 1965 Hepatitis C screen Hepatitis C screen [facility] [employer] Phone: Start: 1965 Hepatitis C screening Hepatitis C screen [facility] Start: 1965 Potassium [Moles/Vol] POTASSIUM [facility] Bacteria identified in Urine by Culture [facility] Chlamydia trachomati s DNA [Presence] in Unspecified specimen by MUKUL with probe detection [facility] Work Phone: Continuous pulse oximetry Pulse oximetry, continuous Respiratory Care Routine Every 4hr until discontinued starting 05/24/2021 [facility]: Comment on above: Every 4hr until discontinued starting CT LUMBAR SPINE WO CONTRAST CT LUMBAR SPINE WO CONTRAST Imaging STAT 04/11/2019 1:43 PM EST [facility] [employer] Phone: Neisseria gonorrhoea e DNA [Presence] in Unspecified specimen by MUKUL with probe detection [facility] Work Phone: Oxygen therapy [Mini [facility] Data Set] Initiate Oxygen Therapy Protocol Respiratory Care Routine As Needed until discontinued starting 05/24/2021 [employer] Work Phone: Comment on above: As Needed until discontinued starting Radiography for bone length studies XR BONE LENGTH STUDY Imaging Routine Hx of total knee arthroplasty, right 01/08/2020 1:37 PM [facility] [employer] [facility] Renal function 2000 panel - Serum or Plasma [facility] Spirometry panel Incentive silverio metry Respiratory Care Routine Every 2hr while awake until discontinued starting 05/24/2021 [employer] Work Phone: Comment on above: Every 2hr while awake until discontinued starting 05/24/2021 Surgical Pathology Surgical Path ology Lab Routine Release Upon Ordering for 1 Occurrences starting 05/24/2021 [facility] [employer] Work Phone: Comment on above: Release Upon Ordering for 1 Occurrences starting 05/24/2021 Trichomonas vaginali s DNA [Presence] in Unspecified specimen by MUKUL with probe detection [facility] Work Phone: X-ray of right knee XR KNEE RIGH T 3 VIEWS Imaging Routine Hx of total knee arthroplasty, right 01/08/2020 1:37 PM [facility] [employer] [facility] End: 06-06-2024 XR Lumbar spine AP and Lateral XR LUMBAR LIMITED 2V AP/LAT Radiology Routine Radiculopathy, lumbar region 1 Occurrences starting 05/08/2023 until 06/06/2024 [facility] Work Phone: Comment on above: 1 Occurrences starting 05/08/2023 until 06/06/2024 [facility] Immunizations Immunization Date Immunization Notes Care Provider Fa cility 05-08-2023 influenza virus vacc ine, unspecified formulation Thomas Mathew MD Work Phone: [facility] Payers Date Payer Category Payer Self-pay [id number] 2019 Private Health Insurance xxx [id number] 2019 Worker's Compensation 2019 Government (not [facility] care or Medicaid) [facility] [id number] 2019 Unknown HEALTH MANAGEMEN [employer] [facility] FUNDED xxxxxxxx 2019-Present [phone] [place] [address] xxxxxxxx [id number]. 2.7.3.785926.315 2019 Unknown [id number] 2019 Unknown [id number] 2019 Unknown HEALTH MANAGEFour Eyes [employer] [facility] FUN[facility] xxxxx 2019-Present [phone] [place] [address] xxxxx [id number]. 2.7.3.568556.315 2019 Unknown [id number]. 1.13.159. 2.7.3.236628.315 2019 Worker's Comp Other Managed Care [facility] [id number]. 2.7.9.728050.306.315 2019 Unknown [id number] 2014 Private Health Insurance [id number] 2014 Private Health Insurance BRENTON PARIKH xxxxxxxxxx 2014-Present [phone] [facility] [address] [place] [address] xxxxxxxxxx 1.2.840.142644.1.13.239. 2.7.3.193023.315 2013 Private Health Insurance 1965 Unknown [id number] 2.16.840.1.659695.3.579. 2.176 1963 Unknown [id number] 2.16.840.1.690908.3.579. 2.176 1963 Unknown [id number] 2.16.840.1.128616.3.579. 2.176 1963 Unknown [id number] 2.16.840.1.744326.3.579. 2.196 1963 Unknown [id number] 2.16.840.1.365486.3.579. 2.175 1963 Unknown [id number] 2.16.840.1.800449.3.579. 2.647 1963 Unknown [id number] 2.16.840.1.336635.3.579. 2.593 1963 Unknown [id number] 2.16.840.1.633235.3.579. 2.593 1963 Unknown [id number] 2.16.840.1.553841.3.579. 2.593 1963 Unknown [id number] 2.16.840.1.071399.3.579. 2.593 1963 Unknown [id number] 2.16.840.1.877724.3.579. 2.593 1963 Unknown [id number] 2.16.840.1.195624.3.579. 259 1963 Unknown [id number] .16.840.1.954332.3.579. 259 1963 Unknown [id number] .16.840.1.228691.3.579. 2 1963 Unknown [id number] .840.1.451076.3.579. 2 1963 Unknown [id number] .840.1.385138.3.579. 2 1963 Unknown [id number] .840.1.843684.3.579. 2 1963 Unknown [id number] .840.1.898496.3.579. 2 1963 Unknown [id number] .840.1.245772.3.579. 2 1963 Unknown [id number] .840.1.593700.3.579. 2 1963 Unknown [id number] .840.1.833576.3.579. 2 1963 Unknown [id number] .840.1.963449.3.579. 2 1963 Unknown [id number] .840.1.088224.3.579. 2 1963 Unknown [id number] .840.1.546935.3.579. 2 1963 Unknown [id number] .840.1.219600.3.579. 2 1963 Unknown [id number] .840.1.732569.3.579. 259 1963 Unknown [id number] .840.1.727492.3.579. 2 1963 Unknown [id number] 2.16.840.1.765151.3.579. 2.593 1963 Unknown [id number] 2.16.840.1.283565.3.579. 2593 1963 Unknown [id number] 2.16.840.1.050784.3.579. 2.1285 1963 Unknown [id number] 2.16.840.1.519376.3.579. 2.1285 1963 Unknown [id number] 2.16.840.1.180891.3.579. 2.1285 1963 Unknown [id number] 2.16.840.1.832752.3.579. 272 1963 Unknown [id number] 2.16.840.1.819075.3.579. 2.72 1963 Unknown [id number] 2.16.840.1.427460.3.579. 2.72 1963 Unknown [id number] 2.16.840.1.623414.3.579. 272 1963 Unknown [id number] 2.16.840.1.115546.3.579. 272 1963 Unknown [id number] 2.16.840.1.287827.3.579. 2.727 1959 Unknown [id number] 1.2.840.236351.1.13.239. 2.7.3.315602.315 1959 Unknown [id number] Self-pay Self Pay Cosmeti c/Pain Mgmt [id number] Unknown [id number] 2.16.840.1.211984.3.579. 2.531 Unknown [id number] 2.16.840.1.307254.3.579. 2.531 Unknown [id number] 2.16840.1.313846.19 Social History Date Type Detail Facility Start: 04-11-2019 End: 08-07-2024 Tobacco smoking status NHIS Never smoker [employer] Start: 04-11-2019 End: 05-25-2021 Alcohol intake Lifetime non-drinker (finding) [employer] Work Phone: Start: 04-11-2019 End: 01-08-2020 History SDOH Alcohol Frequency 1 [employer] Work Phone: Start: 1965 Sex Assigned At Not on file M Motostrano Work Phone: Start: 11-26-2013 End: 01-08-2020 Tobacco use and exposure Never used [employer] Start: 1965 Sex Assigned At Male F [facility] Start: 04-08-2021 End: 05-24-2021 Exposure to SARS-CoV-2 (event) Not sure [employer] Work Phone: Start: 11-05-2022 End: 03-25-2023 Sex Assigned At [facility] Start: 01-26-2014 End: 03-25-2023 Alcohol intake Current non-drinker of alcohol (finding) [facility] Tobacco smoking status Never [facility] Start: 11-05-2022 End: 03-25-2023 History of Social function [facility] Start: 12-05-2023 End: 02-13-2024 Alcoholic beverage intake [facility]dr[facility] (finding) [facility] Start: 06-08-2009 End: 09-30-2014 Sex Male (finding) [facility] Sexual Orientation [facility] Medical Equipment Procedure Code Equipment Code Equipment Origin al Text Equipment Identifier Dates CYSTOSCOPY W/ HO SHAINA ARAIZA MD, Octavio Myers 03/28/20 Unknown Abdomen [id number] FDA Start: 03-28-2020 Screw Darby 3 Alicia nium Set Merlyn Spine - [id number] Start: 12-07-2022 Screw Darby 3 Serr eladio 6.5mm 50mm Bone Polyaxial Nonsterile Spine - [id number] Start: 12-07-2022 Vitoss Ba2x Bioactive Bone Graft Substitute 5.0cub Cm [id number] Start: 12-07-2022 Cage Tritanium 6 d [id number] Spinal Sterile Latex Free Lumbar Posterior - [id number] Start: 12-07-2022 Cage Tritanium 6 d [id number] Spinal Sterile Latex Free Lumbar Posterior - [id number] Start: 12-07-2022 Screw Darby 3 Serr eladio 6.5mm 45mm Bone Polyaxial Nonsterile Spine - [id number] Start: 12-07-2022 Goals Date Patient Goal Desired Activity /State Functional Status Date Assessment Result Facility 02-04-2023 Functional Status N/A [facility] 12-11-2022 Are you deaf, or do you have serious difficulty hearing No 12/11/2022 12:52 PM EDLivia Chase RN [facility] 12-11-2022 Are you blind, or do you have serious difficulty seeing, even when wearing glasses No 12/11/2022 12:52 PM Livia Atkinson RN [facility] 12-11-2022 Do you have serious difficulty walking or climbing stairs No 12/11/2022 12:52 PM Livia Atkinson RN No [facility] 12-11-2022 Do you have difficul ty dressing or bathing No 12/11/2022 12:52 PM Livia Atkinson RN No [facility] 12-11-2022 Because of a physica l, mental, or emotional condition, do you have difficulty doing errands alone such as visiting a physician's office or shopping No 12/11/2022 12:52 PM Livia Atkinson RN No [facility] 10-17-2022 Functional Status N/A [facility] An[facility] 03-19-2022 Functional Status N/A [facility] Mental Status Date Assessment Result Facility 12-11-2022 Because of a physica l, mental, or emotional condition, do you have serious difficulty concentrating, remembering, or making decisions No 12/11/2022 12:52 PM EDT Livia Calix RN No [facility] Clinical Notes 05-03-2021 to 11-19-2024 Telephone Encounter - Cherelle Oleary RN - 04/10/2024 2:13 PM ESTTelephone Encounter - Cherelle Oleary RN - 04/10/2024 2:13 PM SCARLET Enriquez - 02/13/2024 10:45 AM EST Note Date & Type Note Facility 11-19-2024 Hospital Discharge instructions Patient Education 11/19/2024 11:41:03 Kidney Stones, Vstw-vj-Zisv Kidney Stones Kidney stones are rock-like masses [...] Follow these instructions at home: Medicines Take hfqu-uqv-exirjrv and prescription medicines only as told by [...] provider. Document Revised: 10/05/2022 Document Reviewed: 10/05/2022 [employer] Patient Education 2023 Intro[employer]ive. Follow Up Care 11/16/2024 09:50:41 With:LIDIA JACOBS, Cecelia Jj, URL Address: [address] [place] [address]- When: Unknown Comments:as scheduled [facility] Note Patient Education Urology Kidney [...] these instructions at home: Medicines ??? Take wwzv-ymq-wjomcvo and prescription medicines only as told by [...] provider. Document Revised: 10/05/2022 Document Reviewed: 10/05/2022 [employer]anch[employer] Patient Education ? 2023 Introhive. [facility] 08-07-2024 Hospital Discharge instructions Patient Education [...] include: ?8 oz (237 mL) of milk, qfeezai-rsxctvwnlraq-rfrsb milk, and calcium-fortifiedfruit juice. Calcium-fortified means that [...] ?Spinach (cooked), rhubarb, beets, sweet potatoes, and [place] chard. ?Peanuts. ?Potato chips, peruvian fries, and baked potatoes with skin on. ?Nuts and nut products. ?Chocolate. If you regularly take a diuretic medicine, make sure to eat at least 1 or 2 servings of fruits or vegetables that are high in potassium each day. These include: ?Avocado. ?Banana. ?[place], prune, carrot, or tomato juice. ?Baked potato. [...] magnesium, fish oil, or vitamin B6. Take qupl-gyc-xnzmxsy and prescription medicines only as told by [...] Casseroles. Pizza. Lasagna. Frozen meals. Potato chips. Citizen Of [place] fries. The items listed above may not [...] provider. Document Revised: 05/24/2022 Document Reviewed: 05/24/2022 [employer] Patient Education 2023 Introhive. Follow Up Care 07/03/2024 14:31:41 With:LIDIA JACOBS, Cecelia Jj, URL Address: [address] [place], [place] [address]- When: Unknown [facility] 08-07-2024 Note Patient Education Nephrology Dietary [...] ? 8 oz (237 mL) of milk, sqfjiui-lbshexkudtim-ijvwl milk, and calcium-fortifiedfruit juice. Calcium-fortified means that [...] Spinach (cooked), rhubarb, beets, sweet potatoes, and [place] chard. ? Peanuts. ? Potato chips, peruvian fries, and baked potatoes with skin on. ? Nuts and nut products. ? Chocolate. ??? If you regularly take a diuretic medicine, make sure to eat at least 1 or 2 servings of fruits or vegetables that are high in potassium each day. These include: ? Avocado. ? Banana. ? [place], prune, carrot, or tomato juice. ? Baked [...] fish oil, or vitamin B6. ??? Take kudf-jni-udyswsr and prescription medicines only as told by your health (more content not included)... [facility] 06-17-2024 Note Orthopedic Surgery Subjective Chief [...] CT of the right knee completed at [facility] which we do not have access [...] hyperplasia) CKD (chronic kidney disease) 3 Diabetes ([facility]/HCC) GERD (gastroesophageal reflux disease) Hyperlipidemia Hyperparathyroidism Hypertension Kidney stones Lumbar pain OA (osteoarthritis) Obesity Obstetric pulmonary blood clot embolism, antepartum Sleep apnea Objective General: There is no height or weight on file to calculate BMI. No acute distress, comfortable Respiratory: Unlabored breathing with normal rate, no cough Cardiovascular: Warm well perfused extremiti (more content not included)... [facility] 05-18-2024 Note Orthopedic Surgery Subjective Chief [...] CT of the right knee completed at [facility] which we do not have access [...] (chronic kidney disease) 3 Diabetes (CMS/[facility]) GERD (gastroesophageal reflux disease) Hyperlipidemia Hyperparathyroidism Hypertension [...] the right k (more content not included)... [facility] 04-10-2024 Miscellaneous Notes Patient brought in [...] office visit notes can be submitted via [employer] Medical Records. documented [facility] this encounter [facility] Telephone encounter Note Patient brought in [...] office visit notes can be submitted via [employer] Medical Records. [facility] 03-03-2024 Miscellaneous Notes Patient called today to follow up on his request for a written statement stating that provider feels that patient is totally disabled. Patient is informed that this office does not write such letters, however, office notes can be faxed to his direct support professional home health's office if that would be beneficial. documented in this encounter [facility] 03-03-2024 Telephone encounter Note Patient called today to follow up on his request for a written statement stating that provider feels that patient is totally disabled. Patient is informed that this office does not write such letters, however, office notes can be faxed to his direct support professional home health's office if that would be beneficial. [facility] 02-13-2024 History of Present illness Narrative [facility] [address] [place] [address] Patient: Sukhdeep Simental Sex: male : 1965 Age: 58 y.o. PCP: BLAYNE ISABEL MD 02/13/2024 Sukhdeep Simental is here for a(n) follow up for his [facility] work injury. 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 Chief Complaint Patient presents with Back Pain [facility] HPI: 12/07/2022 L2/3 fusion and revised L3/4, S1 at [facility] per patient. Bilateral SI joint injection on 04/17/2021 with 10% relief, pain is worse. 07/07/21 Bilateral L3/4 Medial branch block with no relief. right L 3, 4 nerve root injection on 09/01/2021 with no relef. Back Pain This is a chronic problem. The current episode started more than 1 year ago (surgery 8/22/19 discectomy and 07/10/2019 fusion [place] The problem occurs constantly. The problem is [...] disorder Claustrophobia Diabetes mellitus type 2, controlled ([facility]) Fractures Hyperlipidemia Hypertension Joint pain Low back pain Major depression Obesity Osteoarthritis Pulmonary embolism ([facility]) Seasonal allergies Sleep apnea does not use machine Sleep apnea Visual impairment glasses Past Surgical History: Procedure Laterality Date ANKLE SURGERY spurs removed INJECTION BLOCK EPIDURAL CAUDAL STEROID N/A 10/27/2021 Performed by Darren Lackey MD at [facility] INJECTION BLOCK NERVE MEDIAL BRANCH: bilat L 3/4 Bilateral 07/07/2021 Performed by Darren Lackey MD at [facility] INJECTION BLOCK SACROILIAC JOINT Bilateral 04/17/2021 Performed by Darren Lackey MD at [facility] INJECTION SPINE TRANSFORAMINAL: right L 3,4 Nroot Right 09/01/2021 Performed by Darren Lackey MD at [facility] JOINT REPLACEMENT knees- right x2, left x1 KNEE SURGERY rt knee inf removed tka added rods LITHOTRIPSY LUMBAR DISCECTOMY L4-5 Left 10/16/2018 Performed by Suzanne Silverio DO at [facility] STOMACH SURGERY 04/2021 sleeve Allergies Allergen Reactions [...] Strain: Low Risk (03/28/2022) Received from [facility] Overall Financial Resource Strain (CARDIA) Difficulty of Paying Living Expenses: Not hard at all Food Insecurity: No Food Insecurity (12/05/2023) Hunger Screening Food Insecurity - Worry: Never True Food Insecurity - Inability: Never True Transportation Needs: Unknown (03/28/2022) Received from [facility] PRAPARE - Transportation Lack of Transportation (Medical): No Lack of Transportation (Non-Medical): Not on file Physical Activity: Inactive (12/01/2021) Received from [facility] Exercise Vital Sign Days of Exercise per Week: 0 days Minutes of Exercise per Session: 20 min Stress: No Stress Concern Present (12/01/2021) Received from [facility] [employer] - Occupational Stress Questionnaire Feeling of Stress : Not at all Social Connections: Moderately Isolated (12/01/2021) Received from [facility] Social Connection and Isolation Panel [NHANES] Frequency of Communication with Friends and Family: More than three times a week Frequency of Social Gatherings with Friends and Family: Once a week Attends Hindu Services: Never Active Member of Clubs or Organizations: No Attends Club or Organization Meetings: Never Marital Status: Interpersonal Safety: Unknown (04/18/2023) Received from [facility] [place] Safety & [place] Fear of Current or Ex-Partner: Not on file Emotionally Abused: Not on file Physically Abused: Not on file Sexually Abused: Not on file Physically or Sexually Abused: Not on file Housing Instability: Unknown (03/28/2022) Received from [facility] Housing Stability Vital Sign Unable to [...] 1603 documented in this encounter [facility] 12-05-2023 History of Present illness Narrative [facility] [address] [place] [address] Patient: Sukhdeep Simental Sex: male : 1965 Age: 58 y.o. PCP: BLAYNE ISABEL MD 12/05/2023 Sukhdeep Simental is here for a(n) follow up for his [facility] work injury. He reports he remains about the same as last visit. Chief Complaint Patient presents with Back Pain HPI: 12/07/2022 L2/3 fusion and revised L3/4, S1 at [facility] per patient. Bilateral SI joint injection on 04/17/2021 with 10% relief, pain is worse. 07/07/21 Bilateral L3/4 Medial branch block with no relief. right L 3, 4 nerve root injection on 09/01/2021 with no relef. Back Pain This is a chronic problem. The current episode started more than 1 year ago (surgery 10/16/18 discectomy and 07/10/2019 fusion in [place] The problem occurs constantly. The problem is [...] disorder Claustrophobia Diabetes mellitus type 2, controlled ([facility]) Fractures Hyperlipidemia Hypertension Joint pain Low back pain Major depression Obesity Osteoarthritis Pulmonary embolism ([facility]) Seasonal allergies Sleep apnea does not use machine Sleep apnea Visual impairment glasses Past Surgical History: Procedure Laterality Date ANKLE SURGERY spurs removed INJECTION BLOCK EPIDURAL CAUDAL STEROID N/A 10/27/2021 Performed by Darren Lackey MD at [facility] INJECTION BLOCK NERVE MEDIAL BRANCH: bilat L 3/4 Bilateral 07/07/2021 Performed by Darren Lackey MD at [facility] INJECTION BLOCK SACROILIAC JOINT Bilateral 04/17/2021 Performed by Darren Lackey MD at [facility] INJECTION SPINE TRANSFORAMINAL: right L 3,4 Nroot Right 09/01/2021 Performed by Darren Lackey MD at [facility] JOINT REPLACEMENT knees- right x2, left x1 KNEE SURGERY rt knee inf removed tka added rods LITHOTRIPSY LUMBAR DISCECTOMY L4-5 Left 10/16/2018 Performed by Suzanne Silverio DO at [facility] STOMACH SURGERY 04/2021 sleeve Allergies Allergen [...] Strain: Low Risk (03/28/2022) Received from [facility] Overall Financial Resource Strain (CARDIA) Difficulty of Paying Living Expenses: Not hard at all Food Insecurity: No Food Insecurity (12/05/2023) Hunger Screening Food Insecurity - Worry: Never True Food Insecurity - Inability: Never True Transportation Needs: Unknown (03/28/2022) Received from [facility] PRAPARE - Transportation Lack of Transportation (Medical): No Lack of Transportation (Non-Medical): Not on file Physical Activity: Inactive (12/01/2021) Received from [facility] Exercise Vital Sign Days of Exercise per Week: 0 days Minutes of Exercise per Session: 20 min Stress: No Stress Concern Present (12/01/2021) Received from [facility] [employer] - Occupational Stress Questionnaire Feeling of Stress : Not at all Social Connections: Moderately Isolated (12/01/2021) Received from [facility] Social Connection and Isolation Panel [NHANES] Frequency of Communication with Friends and Family: More than three times a week Frequency of Social Gatherings with Friends and Family: Once a week Attends Hindu Services: Never Active Member of Clubs or Organizations: No Attends Club or Organization Meetings: Never Marital Status: Interpersonal Safety: Unknown (04/18/2023) Received from [facility] [place] Fear of Current or Ex-Partner: Not on file Emotionally Abused: Not on file Physically Abused: Not on file Sexually Abused: Not on file Physically or Sexually Abused: Not on file Housing Instability: Unknown (03/28/2022) Received from [facility] Housing Stability Vital Sign Unable [...] Agustin 12/12/23 0942 documented in this encounter [facility] 10-07-2023 Telephone encounter Note Pt phoned to ensure todays appt was via phone as noted in appt. Pt unable to manage computer. [facility] 10-07-2023 Miscellaneous Notes Pt phoned to ensure todays appt was via phone as noted in appt. Pt unable to manage computer. documented in this encounter [facility] 10-04-2023 Telephone encounter Note Laura report XR Lumbar Spine 2-3v scanned to [facility] 10-04-2023 Miscellaneous Notes Laura report XR Lumbar Spine 2-3v scanned to Epic documented in this encounter [facility] 08-15-2023 History of Present illness Narrative [facility] [address] [place] [address] Patient: Sukhdeep Simental Sex: male : 1965 Age: 57 y.o. PCP: BLAYNE ISABEL MD 08/15/2023 Sukhdeep Simental is here for a(n) follow up for his [facility] work injury. He reports he has pain higher than before surgery. Chief Complaint Patient presents with Back Pain HPI: 12/07/2022 L2/3 fusion and revised L3/4, S1 at [facility] per patient. Bilateral SI joint injection on 04/17/2021 with 10% relief, pain is worse. 07/07/21 Bilateral L3/4 Medial branch block with no relief. right L 3, 4 nerve root injection on 09/01/2021 with no relef. Back Pain This is a chronic problem. The current episode started more than 1 year ago (surgery 10/16/18 discectomy and 07/10/2019 fusion in [place]). The problem occurs constantly. The problem has [...] disorder Claustrophobia Diabetes mellitus type 2, controlled ([facility]) Fractures Hyperlipidemia Hypertension Joint pain Low back pain Major depression Obesity Osteoarthritis Pulmonary embolism ([facility]) Seasonal allergies Sleep apnea does not use machine Sleep apnea Visual impairment glasses Past Surgical History: Procedure Laterality Date ANKLE SURGERY spurs removed INJECTION BLOCK EPIDURAL CAUDAL STEROID N/A 10/27/2021 Performed by Darren Lackey MD at [facility] INJECTION BLOCK NERVE MEDIAL BRANCH: bilat L 3/4 Bilateral 07/07/2021 Performed by Darren Lackey MD at [facility] INJECTION BLOCK SACROILIAC JOINT Bilateral 04/17/2021 Performed by Darren Lackey MD at [facility] INJECTION SPINE TRANSFORAMINAL: right L 3,4 Nroot Right 09/01/2021 Performed by Darren Lackey MD at [facility] JOINT REPLACEMENT knees- right x2, left x1 KNEE SURGERY rt knee inf removed tka added rods LITHOTRIPSY LUMBAR DISCECTOMY L4-5 Left 10/16/2018 Performed by Suzanne Silverio DO at [facility] ST[facility]ACH SURGERY 04/2021 sleeve Allergies Allergen [...] Strain: Low Risk (03/28/2022) Received from [facility] Overall Financial Resource Strain (CARDIA) Difficulty of Paying Living Expenses: Not hard at all Food Insecurity: No Food Insecurity (08/15/2023) Hunger Screening Food Insecurity - Worry: Never True Food Insecurity - Inability: Never True Transportation Needs: Unknown (03/28/2022) Received from [facility] PRAPARE - Transportation Lack of Transportation (Medical): No Lack of Transportation (Non-Medical): Not on file Physical Activity: Inactive (12/01/2021) Received from [facility] Exercise Vital Sign Days of Exercise per Week: 0 days Minutes of Exercise per Session: 20 min Stress: No Stress Concern Present (12/01/2021) Received from [facility] [employer] - Occupational Stress Questionnaire Feeling of Stress : Not at all Social Connections: Moderately Isolated (12/01/2021) Received from [facility] Social Connection and Isolation Panel [NHANES] Frequency of Communication with Friends and Family: More than three times a week Frequency of Social Gatherings with Friends and Family: Once a week Attends Hindu Services: Never Active Member of Clubs or Organizations: No Attends Club or Organization Meetings: Never Marital Status: Interpersonal Safety: Unknown (04/18/2023) Received from [facility] [place] Fear of Current or Ex-Partner: Not on file Emotionally Abused: Not on file Physically Abused: Not on file Sexually Abused: Not on file Physically or Sexually Abused: Not on file Housing Instability: Unknown (03/28/2022) Received from [facility] Housing Stability Vital Sign Unable [...] 1311 documented in this encounter [facility] 07-30-2023 Telephone encounter Note Called Sukhdeep, no answer, left VM [facility] Work Phone: 07-30-2023 Miscellaneous Notes Called Sukhdeep, no answer, left VM Have sent XR Lumbar order to [facility] fax # [phone] as requested from patient. [facility] unable to manage virtual visit asking for telephone visit. Pt asking how far in advance to do X-Ray. Pt will have X-Ray done locally at [facility]. Please call and advise Pt phone # [phone] documented in this encounter [facility] 07-30-2023 Telephone encounter Note Have sent XR Lumbar order to [facility] fax # [phone] as requested from patient. [facility] 07-30-2023 Telephone encounter Note Pt [facility] Pt unable to manage virtual visit asking for telephone visit. Pt asking how far in advance to do X-Ray. Pt will have X-Ray done locally at [facility]. Please call and advise Pt phone # [phone] [facility] 07-26-2023 Telephone encounter Note Office note faxed. Faxed verification received. [facility] 07-26-2023 Miscellaneous Notes Office note faxed. Faxed verification received. Printed for review. Received request from [employer], in [employer] for review. documented in this encounter [facility] 07-23-2023 Telephone encounter Note Printed for review. [facility] 07-23-2023 Telephone encounter Note Received request from [employer], in [employer] for review. [facility] 05-08-2023 History of Present illness Narrative SPINE SURGERY FOLLOW UP This is a virtual visit using Audio Only Visit. It required patient-provider interaction for the medical decision making as documented below. I have communicated my name and active licensure. The patient's identity and physical location were verified at the time of this visit. Either the patient or their legal consumer sales representative has been informed of the [...] visit. Either the patient or their legal consumer sales representative has been informed of the [...] 4:00 PM PAGER: documented in this encounter [facility] 05-08-2023 Miscellaneous Notes A letter was [...] left. documented in this encounter [facility] 05-08-2023 Telephone encounter Note A letter [...] call was made. Message left. [facility] 05-07-2023 Miscellaneous Notes Call received from Hannah, patient's caser. She called as patient's MEDCO-14 is expiring soon. Hannah is informed that patient called about this and an updated MEDCO-14 was completed and faxed on 05/03/2023. Hannah states she is his caser and would like information sent to her [...] be 05/15/2023-11/14/2023. documented in this encounter [facility] 05-07-2023 Telephone encounter Note Call received from Hannah, patient's caser. She called as patient's MEDCO-14 is expiring soon. Hannah is informed that patient called about this and an updated MEDCO-14 was completed and faxed on 05/03/2023. Hannah states she is his caser and would like information sent to her at - [employer]. She asked what the form states. She is informed that there are no changes . She asks if patient is able to return to work. She is informed again that MEDCO 14 indicates No Changes and office restrictions ordered by this office have not changed. Hannah is reminded that patient had surgery. Hannah informed that new dates for restrictions will be 05/15/2023-11/14/2023. [facility] 04-18-2023 Miscellaneous Notes Signed form faxed to number requested. Faxed verification received. Printed for review and signature. Received PT Certification from [facility]. Scanned to chart for provider signature. documented in this encounter [facility] 04-16-2023 Miscellaneous Notes Received imaging disc by mail from [facility]. Disc contains CT Lumbar spine done on 04/03/23. Will place in nurse folder in [address]. documented in this encounter [facility] 04-09-2023 Miscellaneous Notes Called & spoke with Sukhdeep Asked him to obtain imaging disc & send to our office. Will require images to be uploaded to assess for bony fusion at previous surgical site and adjacent segment disease. Received CT Lumbar Spine Report from [facility], in epic to review. documented in this encounter [facility] 02-14-2023 History of Present illness Narrative [facility] [address] [place] [address] Patient: Sukhdeep Simental Sex: male : 1965 Age: 57 y.o. PCP: BLAYNE ISABEL MD 02/14/2023 Sukhdeep Simental is here for a 6 month follow up for his [facility] work injury. Chief Complaint Patient presents with Back Pain HPI: 12/07/2022 L2/3 fusion and revised L3/4, S1 at [facility] per patient. Bilateral SI joint injection on 04/17/2021 with 10% relief, pain is worse. 07/07/21 Bilateral L3/4 Medial branch block with no relief. right L 3, 4 nerve root injection on 09/01/2021 with no relef. Back Pain This is a chronic problem. The current episode started more than 1 year ago (surgery 10/16/18 discectomy and 07/10/2019 fusion in [place] The problem occurs constantly. The problem has [...] disorder Claustrophobia Diabetes mellitus type 2, controlled ([facility]) Fractures Hyperlipidemia Hypertension Joint pain Low back pain Major depression Obesity Osteoarthritis Pulmonary embolism ([facility]) Seasonal allergies Sleep apnea does not use machine Sleep apnea Visual impairment glasses Past Surgical History: Procedure Laterality Date ANKLE SURGERY spurs removed INJECTION BLOCK EPIDURAL CAUDAL STEROID N/A 10/27/2021 Performed by Darren Lackey MD at [facility] INJECTION BLOCK NERVE MEDIAL BRANCH: bilat L 3/4 Bilateral 07/07/2021 Performed by Darren Lackey MD at [facility] INJECTION BLOCK SACROILIAC JOINT Bilateral 04/17/2021 Performed by Darren Lackey MD at [facility] INJECTION SPINE TRANSFORAMINAL: right L 3,4 Nroot Right 09/01/2021 Performed by Darren Lackey MD at [facility] JOINT REPLACEMENT knees- right x2, left x1 KNEE SURGERY rt knee inf removed tka added rods LITHOTRIPSY LUMBAR DISCECTOMY L4-5 Left 10/16/2018 Performed by Suzanne Silverio DO at [facility] STOMACH SURGERY 04/2021 sleeve Allergies Allergen Reactions [...] 1158 documented in this encounter [facility] 02-07-2023 Miscellaneous Notes C9 for physical therapy faxed to [employer]. Faxed verification received. documented in this encounter [facility] 02-07-2023 History of Present illness Narrative [...] which included preparing to see the patient, [id number] patient care, completing clinical documentation, obtaining and/or reviewing separately obtained history, performing a medically appropriate examination, counseling and educating the patient/family/caregiver, and ordering medications, tests, or procedures. SIGNATURE: Riddhi Goss APRN.CNP PATIENT NAME: Sukhdeep Simental DATE: February 07, 2023 TIME: 2:39 PM PAGER: documented in this encounter [facility] 02-04-2023 Hospital Discharge instructions Patient Education [...] include: ?8 oz (237 mL) of milk, gxgdkif-bupddwffbuqt-beivh milk, and calcium-fortifiedfruit juice. Calcium-fortified means that [...] ?Spinach (cooked), rhubarb, beets, sweet potatoes, and [place] chard. ?Peanuts. ?Potato chips, peruvian fries, and baked potatoes with skin on. ?Nuts and nut products. ?Chocolate. If you regularly take a diuretic medicine, make sure to eat at least 1 or 2 servings of fruits or vegetables that are high in potassium each day. These include: ?Avocado. ?Banana. ?[place], prune, carrot, or tomato juice. ?Baked potato. [...] magnesium, fish oil, or vitamin B6. Take mamo-sgm-zncrmfl and prescription medicines only as told by [...] Casseroles. Pizza. Lasagna. Frozen meals. Potato chips. Citizen Of [place] fries. The items listed above may not [...] provider. Document Revised: 05/24/2022 Document Reviewed: 05/24/2022 [employer] Patient Education 2022 [employer]. Follow Up Care 07/27/2022 14:20:34 With:LIDIA JACOBS, Cecelia Jj, URL Address: [facility] [address] , [place] [address]- When:Within 1 Year(s) Comments:w/CT EVELINE w/o José [facility] 01-23-2023 Miscellaneous Notes Received fax from [employer]. Scanned into [employer]. Also received a RTW from [employer]. Scanned into [employer] as well. documented in this encounter [facility] 12-21-2022 Miscellaneous Notes Patient called with complaints of [facility] not allowing him to sweet pickle maker the pain medication that was sent yesterday. [...] with an update. documented in this encounter [facility] 12-20-2022 History of Present illness Narrative [...] which included preparing to see the patient, [id number]-suvp patient care, completing clinical documentation, obtaining and/or reviewing separately obtained history, performing a medically appropriate examination, counseling and educating the patient/family/caregiver, and ordering medications, tests, or procedures. SIGNATURE: Singh Morgan PA-C PATIENT NAME: Sukhdeep Simental DATE: December 20, 2022 TIME: 2:58 PM PAGER: documented in this encounter [facility] 12-17-2022 Miscellaneous Notes Forms completed and signed by provider. Faxed to number provided and and Sukhdeep notified via voice mail, as requested. Scanned into [employer]. Form completed. Awaiting signature. Printed for review. Received FMLA form by fax from patient's . Scanned to patient's chart for review and completion. documented in this encounter [facility] 12-13-2022 Miscellaneous Notes Spoke with patient [...] a kenya. Xi Schrader PA-C Patient at [phone] is requesting a call back. He had back surgery on 12-07. He states for the past 2 days his right ring and little finger has been numb. documented in this encounter [facility] 12-12-2022 Miscellaneous Notes Spoke with pharmacy and was informed that medication is approved. No prior authorization needed. Patient called stating pharmacy needs a prior authorization for oxycodone 15 mg. I called the pharmacy on 12/12/2022 at 9:40 AM. Insurance will not pay for the frequency of medication written. They will cover q12h. Prescription changed to oxycodone 15 mg 12h. [address] [facility] [id number] - [place] [address] - [address] - [phone] Pharmacist at [facility] wanted to inform the office that this patient already takes Percocet 10-325 every 6 hours, picked it up 13 days ago. They tried running the Percocet but his insurance will not cover both. Please call them back with new instructions. documented in this encounter [facility] 12-11-2022 Note HNO ID: [id number] Author: Lulu Oviedo MD Service: General Internal [...] 10 mg tab( (more content not included)... [facility] 12-10-2022 Note HNO ID: [id number] Author: Lulu Oviedo MD Service: General Internal [...] 10% iv bolu (more content not included)... [facility] 12-09-2022 Note HNO ID: [id number] Author: Alyssa Tim APRN.AQUA AMMONIA OPERATOR Service: Neurosurgery Author Type: Nurse Practitioner [...] is currently not well controlled despite Dilaudid MAGAZINE JOURNALIST and Toradol. He denies new weakness, numbness, [...] mg ORAL q 8 H Archual, Alyssa, DIE CUTTER DIAMOND.AQUA AMMONIA OPERATOR 1,000 mg at 12/09/22 0559 aluminum-magnesium hydroxide-simethicone 200-200-20 mg/5 mL 30 mL 30 mL ORAL q 6 H PRN Archual, Alyssa, DIE CUTTER DIAMOND.AQUA AMMONIA OPERATOR bisacodyl EC 10 mg tab(s) (DULCOLAX) 10 mg ORAL DAILY PRN Archual, Alyssa, DIE CUTTER DIAMOND.AQUA AMMONIA OPERATOR dextrose 40 % 15 g 15 g ORAL PRN Archual, Alyssa, DIE CUTTER DIAMOND.AQUA AMMONIA OPERATOR Or glucagon 1 mg injection 1 mg INTRAMUSCULAR PRN Archual, Alyssa, DIE CUTTER DIAMOND.AQUA AMMONIA OPERATOR Or dextrose 10% iv bolus 12.5 g INTRAVENOUS PRN Archual, Alyssa, DIE CUTTER DIAMOND.AQUA AMMONIA OPERATOR docusate sodium 100 mg cap(s) (COLACE) 100 mg ORAL BID Thomas Mathew MD 100 mg at 12/09/22 0821 doxazosin 4 mg tab(s) (CARDURA) 4 mg ORAL DAILY Thomas Mathew MD 4 mg at 12/09/22 0821 fentaNYL MAGAZINE JOURNALIST 20 mcg/mL in NaCl 0.9% 100 mL (SUBLIMAZE) INTRAVENOUS CONTINUOUS Archual, Alyssa, DIE CUTTER DIAMOND.AQUA AMMONIA OPERATOR ferrous sulfate 325 mg tab(s) 325 mg ORAL DAILY Archual, Alyssa, DIE CUTTER DIAMOND.AQUA AMMONIA OPERATOR 325 mg at 12/09/22 0821 heparin 5,000 Units injection 5,000 Units SUBCUTANEOUS q 12 H Archual, Alyssa, DIE CUTTER DIAMOND.AQUA AMMONIA OPERATOR 5,000 Units at 12/09/22 0821 hydrOXYzine HCl 25 mg tab(s) (ATARAX) 25 mg ORAL q 6 H PRN Archual, Alyssa, DIE CUTTER DIAMOND.AQUA AMMONIA OPERATOR insulin lispro injection (rapid acting) (HumaLOG) SUBCUTANEOUS w MEALS AND HS Archual, Alyssa, DIE CUTTER DIAMOND.AQUA AMMONIA OPERATOR 1 Units at 12/07/22 1803 lactated ringers iv infusion 75 mL/hr INTRAVENOUS CONTINUOUS Thomas Mathew MD 75 mL/hr at 12/09/22 1018 75 mL/hr at 12/09/22 1018 methocarbamol 750 mg tab(s) (ROBAXIN) 750 mg ORAL QID Archual, Alyssa, DIE CUTTER DIAMOND.AQUA AMMONIA OPERATOR NaCl 0.9% iv flush bag 20 mL INTRAVENOUS PRN Thomas Mathew MD naloxone 0.1 mg injection (NARCAN) 0.1 mg INTRAVENOUS q 2 MIN PRN Archual, Alyssa, DIE CUTTER DIAMOND.AQUA AMMONIA OPERATOR omeprazole 20 mg cap(s) (PriLOSEC) 20 mg ORAL 2 times per day Michael York, [facility] 20 mg at 12/08/222019 ondansetron 4 mg tab(s) (ZOFRAN) 4 mg ORAL q 6 H PRN Thomas Mathew MD Or ondansetron (PF) 4 mg injection (ZOFRAN) 4 mg INTRAVENOUS q 6 H PRN Thomas Mathew MD 4 mg at 12/09/22 0941 polyethylene glycol 3350 17 g packet 17 g ORAL DAILY Archual, Alyssa, DIE CUTTER DIAMOND.AQUA AMMONIA OPERATOR 17 g at 12/09/22 0821 simvastatin 10 mg tab(s) (ZOCOR) 10 mg ORAL AT BEDTIME Thomas Mathew MD 10 mg at 12/08/222019 tamsulosin 0.4 mg cap(s) (FLOMAX) 0.4 mg ORAL DAILY Thomas Mathew MD 0.4 mg at 12/09/22 0821 traZODone 150 mg tab(s) (DESYREL) 150 mg ORAL AT BEDTIME Alyssa Tim APRN.AQUA AMMONIA OPERATOR 150 mg at 12/08/222019 valsartan 80 mg tab(s) (DIOVAN) 80 mg ORAL DAILY Alyssa Tim APRN.AQUA AMMONIA OPERATOR 80 mg at 12/09/22 0822 ASSESSMENT AND [...] pain control, Pain management consulted, started Fentanyl MAGAZINE JOURNALIST today due to continued uncontrolled pain, Robaxin and Tylenol scheduled, no further Toradol due to CKD 3. -Check postop lumbar XR today -Medicine consult for post-operative medical management -Discharge planning, anticipate discharge home in 1-2 more days. Plan of care discussed with Dr. Mathew via phone. Medication and Non-Pharmacologic VTE Prophylaxis/Anticoagulants 10/25/21 1215 vte pharmacologic prophylaxis contraindicated (fl,oh) (more content not included)... [facility] 12-08-2022 Note HNO ID: [id number] Author: Alyssa Tim APRN.AQUA AMMONIA OPERATOR Service: Neurosurgery Author Type: Nurse Practitioner [...] on POD #2 -Post-operative pain control, Dilaudid MAGAZINE JOURNALIST discontinued. Continue Tylenol, Toradol IV, and Robaxin PRN. Start oxycodone every 3 hours PRN and Dilaudid IV PRN. -Check postop XR tomorrow. -Medicine consult for post-operative medical management -Discharge planning, anticipate discharge home in 1-2 more days. Plan of care discussed with Dr Hopper via phone. Medication and Non-Pharmacologic VTE Prophylaxis/Anticoagulants 10/25/21 1215 vte pharmacologic prophylaxis contraindicated (la,oh) 10/25/21 1215 pneumatic compression stockings (la,hi) 10/25/21 1215 activity - mobilize patient ([place]) VTE Prophylaxis: VTE prophylaxis appropriate SIGNATURE: Alyssa Tim APRN.AQUA AMMONIA OPERATOR DATE: December 08, 2022 TIME: 1:50 PM [facility] 12-08-2022 Note HNO ID: [id number] Author: Note, Interface Service: ? Author Type: ? Type: Progress Notes Filed: 12/08/2022 3:59 AM Note Text: Epic Scheduled Downtime: 12/08/2022 1:00:00 AM to 12/08/2022 1:28:00 AM [facility] 12-07-2022 Note HNO ID: [id number] Author: Aaron Noriega AA Service: Anesthesiology Author Type: J2Ee Engineer Type: Anesthesia Procedure Notes Filed: 12/07/2022 [...] December 07, 2022 TIME: 8:03 AM CSN: [id number] [facility] 12-06-2022 Evaluation note Encounter Date [...] has adequate iron stores. 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 12/07/2022 documented as of this encounter (statuses as of 12/18/2022) [facility]09-27-2023 History of Past illness Narrative* Problem Noted Date Diagnosed Date Resolved Date Secondary hyperparathyroidism 11/21/2022 11/21/2022 11/21/2022 Corneal edema, unspecified 12/10/2013 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 12/07/2022 documented as of this encounter (statuses as of 12/21/2022) [address]27-2023 History of Past illness Narrative* Problem Noted Date Diagnosed Date Resolved Date Secondary hyperparathyroidism 11/21/2022 11/21/2022 11/21/2022 Corneal edema, unspecified 12/10/2013 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 12/07/2022 documented as of this encounter (statuses as of 12/21/2022) [address]27-2023 History of Past illness Narrative* Problem Noted Date Diagnosed Date Resolved Date Secondary hyperparathyroidism 11/21/2022 11/21/2022 11/21/2022 Corneal edema, unspecified 12/10/2013 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 12/07/2022 documented as of this encounter (statuses as of 01/24/2023) [address]27-2023 History of Past illness Narrative* Problem Noted Date Diagnosed Date Resolved Date Secondary hyperparathyroidism 11/21/2022 11/21/2022 11/21/2022 Corneal edema, unspecified 12/10/2013 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 12/07/2022 documented as of this encounter (statuses as of 02/08/2023) [address]27-2023 History of Past illness Narrative* Problem Noted Date Diagnosed Date Resolved Date Secondary hyperparathyroidism 11/21/2022 11/21/2022 11/21/2022 Corneal edema, unspecified 12/10/2013 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 12/07/2022 documented as of this encounter (statuses as of 02/09/2023) [address]27-2023 History of Past illness Narrative* Problem Noted Date Diagnosed Date Resolved Date Secondary hyperparathyroidism 11/21/2022 11/21/2022 11/21/2022 Corneal edema, unspecified 12/10/2013 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 12/07/2022 documented as of this encounter (statuses as of 04/09/2023) [address]27-2023 History of Past illness Narrative* Problem Noted Date Diagnosed Date Resolved Date Secondary hyperparathyroidism 11/21/2022 11/21/2022 11/21/2022 Corneal edema, unspecified 12/10/2013 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 12/07/2022 documented as of this encounter (statuses as of 04/18/2023) [facility]09-27-2023 History of Past illness Narrative* Problem Noted Date Diagnosed Date Resolved Date Secondary hyperparathyroidism 11/21/2022 11/21/2022 11/21/2022 Corneal edema, unspecified 12/10/2013 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 Given both written and verbal instructions re : Skin prep, wound care, pain management and post op restrictions. Provided to patient: [facility] Surgery Guide, skin prep supplies, Spine Surgery Pre/post op education packet. Yes Reviewed with patient to report to the registration desk for surgery? Yes. Reviewed with the patient that a surgery member service representative will call the working day [...] lab work : To be completed at [facility]. Questions answered. Patient verbalizes understanding via teach back. Additional comments : Informed to call with any questions or concerns. Juan Pablo Nova RN [facility] History of Present illness Narrative* Thomas [...] TIME: 2:20 PM PAGER: documented in [facility]23 NoteHNO ID: [id number] Author: Sonya Wilhelm APRN.AQUA AMMONIA OPERATOR Service: ? Author Type: Nurse Practitioner Type: Progress Notes Filed: 10/16/2022 4:03 PM Note Text: Per Triage: Sukhdeep Simental is a 57 year old male that requests evaluation of lumbar spine. Per review, they have symptoms of LBP Hip pain Leg pain (R) Numbness, Tingling Toes Trouble lifting leg (R) Prev surgery yes L4-S1 fusion in [facility] CMT: Injection Muscle relaxants, Zanaflex Studies [...] schedule with first available lumbar revision surgeon. [facility]08-22-2023 History of Present illness Narrative* Sonya Wilhelm APRN.AQUA AMMONIA OPERATOR - 10/16/2022 3:51 PM EDT Per Triage: Sukhdeep Simental is a 57 year old male that requests evaluation of lumbar spine. Per review, they have symptoms of LBP Hip pain Leg pain (R) Numbness, Tingling Toes Trouble lifting leg (R) Prev surgery yes L4-S1 fusion in [facility] CMT: Injection Muscle relaxants, Zanaflex Studies [...] Health Provider or Pain Management Provider at [facility]? No If answer is YES [...] facility where the MRI/CT/myelogram was completed: [facility] Address: [address] [place] [address] MRI/CT/myelogram viewable in Epic: No If not, please provide [phone] to fax in imaging reports for review. [...] physical therapy was completed Injection [facility] Address: [address] [place] [address] Have you tried any other kinds of [...] of where the surgery was completed: 2019 [facility] Address: [address], [place] [address] Additional Comments [phone] (Home Phone) documented in this [facility]Ad[facility]07[facility]-2023 NoteHNO ID: [id number] Author: Adonis Lopez Service: ? Author Type: ? Type: Progress Notes Filed: 10/16/2022 4:03 PM Note Text: Patient name: Sukhdeep Simental Are you being referred by a [facility] Spine Health Provider or Pain Management Provider at [facility]? No If answer is YES [...] facility where the MRI/CT/myelogram was completed: [facility] Address: [address] [place] [address] MRI/CT/myelogram viewable in Epic: No If not, please provide [phone] to fax in imaging reports for review. [...] physical therapy was completed Injection [facility] Address: [address] [place] [address] Have you tried any other kinds of [...] of where the surgery was completed: 2019 [facility] Address: [address], [place] [address] Additional Comments [phone] (Home Phone)[facility]04[facility] Evaluation note* Encounter Date Diagnosis [...] will continue to monitor without any medications. [facility] Other 01-23-2023 Hospital Discharge instructions Patient Education [...] include: ?Spinach. ?Rhubarb. ?Beets. ?Potato chips and peruvian fries. ?Nuts. If you regularly take a diuretic medicine, make sure to eat at least 1 2 fruits or vegetables high in potassium each day. These include: ?Avocado. ?Banana. ?[place], prune, carrot, or tomato juice. ?Baked potato. [...] Casseroles. Pizza. Lasagna. Frozen meals. Potato chips. Citizen Of [place] fries. Summary You can reduce your risk [...] 06/08/2011 Document Revised: 06/03/2019 Document Reviewed: 01/22/2017 [employer] Patient Education 2019 [employer]. Follow Up Care 03/15/2022 09:49:40 With:LIDIA JACOBS, Cecelia Jj, URL Address: [facility] [address], [place] [address]- When: Unknown [facility] 01-16-2023 NoteIndication: Renal mass. Comparison: 07/14/2021 [...] Electronically authenticated by: CITLALI GIRON Date: 2022-03-12 18:03[facility]10-21-2022 Evaluation note* Encounter Date Diagnosis [...] be cultured for infection, gonorrhea, chlamydia, yeast. [facility] Other 08-31-2022 Evaluation note* Encounter Date Diagnosis [...] paraproteinemia due to the CKD and anemia. [facility] Other 04-01-2022 History of Present illness Narrative* [...] the original note were not included. [place] Worker Supervisor Progress Note Date: 05/26/2021 Patient name: [...] 2. Ok for d/c from cardiology standpoint. [place] Worker Supervisor [facility]. [phone] * Octavio Mcclellan DO - 05/25/2021 5:42 [...] RN - 05/25/2021 8:32 AM EDT [place] Worker Supervisor Documentation Note Admission Dx: S/P laparoscopic [...] on an annual basis Tona Foreman RN [place] Worker Supervisor * Sonya Ramírez, DO - 05/25/2021 [...] Day of Surgery/Procedure As a patient at [facility] you can expect quality medical and nursing care that is centered on your individual needs. Our goal is to make your surgical experience as comfortableas possible . Directions to the Surgery Center [facility] is located at [address] [place] [address]. Please pull into the Emergency parking lot and stop at the senior technical analyst ojeda. We offer free senior technical analyst service for all our surgery patients, if you choose not to have senior technical analyst parking we have additional parking across the street.You will enter the facility under the blue canopy/walkway following the [facility] sign. Please stop at the cashier receptionist desk where you will be checked in by the staff. If you have any questions please call [phone]. Transportation after your procedure. You will need a friend or family member to drive you home after your procedure. Your skip load driver must be18 years of age or [...] You may shave your face or neck. Harrison your teeth but do not swallow water. [...] or the day of surgery, please call [phone], or [phone] documented in this [facility] Phone: 1(438) 629-636703-31-2022 Hospital Discharge instructions* Discharge Instr - KAMARI* Jenny Lentz RN - 05/25/2021 5:44 PM EDT PHYSICIAN SIGNATURE: * Additional Instructions* Jenny Lentz RN - 05/26/2021 Discharge Instructions for Bariatric Surgery You had a Laparoscopic Sleeve Gastrectomy (81505) surgery to treat obesity. Recovery from this [...] scheduled appointment, please call the office at [phone]. Call Your Doctor If Any of the [...] sent through Care Everywhere. * Enoxaparin (Lovenox) (Togolese) * metoprolol (oral/injection) (Togolese) * acetaminophen and oxycodone (Togolese) documented in this [facility] Phone: 1(243) 401-936203-09-2022 Hospital Discharge instructions* Instructions* Etelvina Ledbetter DIE CUTTER DIAMOND - AQUA AMMONIA OPERATOR - 05/03/2021 Pre-operative Instructions Please arrive [...] list you provided today, ACCORDING TO YOUR REPAIR SERVICER, PLEASE HOLD ELIQUIS 3 DAYS PRIOR TO [...] public transportation ALONE is not acceptable. -Your skip load driver must be 18 years of age [...] Day of Surgery/Procedure As a patient at [facility] you can expect quality medical and nursing care that is centered on your individual needs. Our goal is to make your surgical experience as comfortableas possible . Directions to the Surgery Center [facility] is located at [address] [place] [address]. Please pull into the Emergency/Surgery Center parking lot and stop at the [facility] ojeda. We offer free senior technical analyst service for all our surgery patients, if you choose not to have senior technical analyst parking we have additional parking across the [...] pharmacy bottles in a zip lock bag. Harrison your teeth but do not swallow water. [...] DAY OF your surgery, you may call [phone] documented in this [facility] Work Phone: evaluation + Plan note Future Appointments Appointment Date:07/16/2022 02:45:00 PM Scheduled Provider:Cecelia MURILLO MD Location:[facility] Appointment Type:URO Office Visit [facility] evaluation + Plan note Future Appointments Appointment Date:02/04/2023 09:15:00 AM Scheduled Provider:Cecelia MURILLO MD Location:[facility] Appointment Type:URO Office Visit General Surgery [place] Evaluation + Plan note Future Appointments Appointment Date:02/03/2024 10:30:00 AM Scheduled Provider:[facility] Office Visit Diagnostic Tests Pending * PSA Total 02/04/23 [facility] evaluation + Plan note Future Appointments Appointment Date:08/13/2025 10:45:00 AM Scheduled Provider:Cecelia MURILLO MD Location:[facility] Appointment Type:URO Office Visit Diagnostic Tests Pending * PSA Total 06/25/25 [facility] evaluation + Plan note Future Appointments Appointment Date:08/13/2025 10:45:00 AM Scheduled Provider:Cecelia MURILLO MD Location:[facility] Appointment Type:URO Office Visit [facility] evalxjbkhr note* Diagnosis Pre-op chest exam Pre-operative respiratory examination documented in this encounter [employer] Phone: [email or web address] note* Diagnosis S/P laparoscopic sleeve gastrectomy- Primary documented in this encounter [employer] Phone: [email or web address] noteNo InformationNosaint louis [facility] [employer] Other Evaluation noteNo assessment information available [facility] Work Phone: Evaluation note* Diagnosis Lumbar adjacent segment disease with spondylolisthesis- Primary Lumbar adjacent segment disease with spondylolisthesis [facility]* Diagnosis Lumbar adjacent segment disease with spondylolisthesis- Primary documented in this encounter [facility] note* Diagnosis Lumbar adjacent segment disease with spondylolisthesis- Primary documented in this encounter [facility] note* Diagnosis Radiculopathy, lumbar region- Primary Thoracic or lumbosacral neuritis or radiculitis, unspecified [facility]* Diagnosis Onset Date Resolution Status CKD (chronic kidney disease) stage 3, GFR 30-59 ml/min acute [id number] acute Hyperuricemia acute Microscopic hematuria acute Nephrolithiasis acute Secondary hyperparathyroidism acute Type 2 diabetes 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 acute [facility] Work Phone: Evaluation note* Diagnosis Spinal stenosis, lumbar region, with neurogenic claudication- Primary [facility] Diagnosis Spinal stenosis, lumbar region, with neurogenic claudication- Primary [facility] Diagnosis Spinal stenosis, lumbar region, with neurogenic claudication- Primary documented in this encounter [facility] general Narrative - Reported* Type Description [...] GASTRIC SLEEVE 04/2021 Hospitalization History SEE ABOVE [facility] Other History general Narrative - Reported* Type [...] REPLACEMENT 04/16 22 Hospitalization History SEE ABOVE [facility] Other Hospital course Narrative No data available for this section [facility] Hospital Discharge instructions No data available for this section General Surgery [place] InstructionsNot on filedocumented in this encounter [facility] filedocumented in this encounter [facility]Not on filedocumented in this encounter [facility]ructionsNot on filedocumented in this encounter [facility] No data available for this section [facility] reason for referral (narrative)* Diagnostic Procedure Only (Routine) - Pending Review Specialty Diagnoses / Procedures Referred By Contac t Referred To Contact XR IMAGING Diagnoses Lumbar adjacent segment disease with spondylolisthesis Procedures XR LUMBAR LIMITED 2V AP/LAT RADEX SPINE LUMBOSACRAL 2/3 VIEWS Singh Morgan PA-C [address] [place] [address] Xr Imaging [id number] Referral ID Status Reason Start Date Expiration Date Visits Requested Visits Authorized [id number] Pending Review Auto-Generat ed Referral 01/19/2024 1 1 [facility] for referral (narrative)* Diagnostic Procedure Only (Routine) - Pending Review Specialty Diagnoses / Procedures Referred By Contac t Referred To Contact XR IMAGING Diagnoses Radiculopathy, lumbar region Procedures XR LUMBAR LIMITED 2V AP/LAT RADEX SPINE LUMBOSACRAL 2/[place] [address] [place] [address] Xr Imaging [id number] Referral ID Status Reason Start Date Expiration Date Visits Requested Visits Authorized [id number] Pending Review Auto-Generat ed Referral 05/08/2023 06/06/2024 1 1 [facility] for visit Narrative* Auth/Cert Specialty Diagnoses / Procedures Referred By Contac t Referred To Contact Diagnoses Morbid obesity (HCC) Type II diabetes circulatory disorder causing erectile dysfunction (HCC) Hypertension MORBID OBESITY, TYPE II DIABETES, HYPERTENSION Procedures ME LAP, JUAN RESTRICT PROC, LONGITUDINAL GASTRECTOMY XI ROBOTIC LAPOROSCOPIC GASTRECTOMY SLEEVE, LIVER BIOPSY, EGD- GI SCHEDULED Octavio Mcclellan, [address] [address] [place] [address] [employer] [address] [place] [address] Referral ID Status Reason Start Date Expiration Date Visits Re quested Visits Authorized 1 1 [facility] Phone: Advance Directives No Advanced Directives Records FoundDocuments on File Type Date Recorded Patient Supervisor Network Control Operators Expl anation Advance Directives and Living Will Power of Hospitality Associate Advance Directive Response Recorded Date/ Time Advance Directives No September 16 2:32pm Documents on File Type Date Recorded Patient Supervisor Network Control Operators Expl anation ACP-Advance Directive ACP-Power of Hospitality Associate Documents on File Type Date Recorded Patient Supervisor Network Control Operators Expl anation ACP-Advance Directive ACP-Power of Hospitality Associate Latest Code Status on File Code Status [...] retention in legs Alexandro Muhammad MD [address] [place] [address] Maite John MD [address] [place] [address] Scheduling Instructions . Specialty Diagnoses / Procedures Referred By Enoch luna Referred To Contact [facility] Diagnoses Lumbar adjacent segment disease with spondylolisthesis Procedures CONSULT TO [facility] (CHRONIC PAIN) OFFICE/OUTPATIENT NEW HIGH MDM 60-[place] [address] [place] [address] Referral ID Status Reason Start Date Expiration Date Visits Requested Visits Authorized [id number] Pending Review PCP Requested Referral 11/05/2022 11/05/2023 1 1 Specialty Diagnoses / Procedures Referred By Enoch luna Referred To Contact [facility] Diagnoses Lumbar adjacent segment disease with spondylolisthesis Procedures CONSULT TO PHYSICAL THERAPY PHYSICAL THERAPY EVALUATION HIGH COMPLEX 45 MINS Riddhi Goss, DIE CUTTER DIAMOND.AQUA AMMONIA OPERATOR [address] [place] [address] [facility] [address] [place] [address] Referral ID Status Reason Start Date Expiration Date Visits Requested Visits Authorized [id number] Pending Review Auto-Generat ed Referral 3 02/07/2024 1 1 History of Present Illness * Alexandro Muhammda MD - 01/08/2020 1:30 PM EST HPI: [...] has been treated in the past by library assistant as well as his PCP. They contribute [...] 01/08/2020 2:19 PM Patient: Sukhdeep Simental MR#: [id number] : 1965 Age: 54 y.o. 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 [...] []Chair,[]cane, []bracing Are you followed by a shotgun shell reprinting unit operator? [] [x] Name: Are you followed by [...] kidney disease) stage 3, GFR 30-59 ml/min [id number] Hyperuricemia Microscopic hematuria Nephrolithiasis Secondary hyperparathyroidism Type 2 diabetes mellitus with diabetic chronic kidney disease Discharge Instructions * Attachments The following attachments cannot be sent through Care Everywhere. * Back Pain (Togolese) documented in this encounter Additional Source Comments (unrecognized sect ion and content) No Status Records FoundNo Status Records FoundNo Status Records FoundNo Status Records FoundNo Status Records FoundNo Status Records FoundNo Status Records FoundNo Status Records FoundNo Status Records FoundNo Status Records FoundNo Status Records FoundNo Status Records Found INFORMATION SOURCE (unrecogn ized section and content) DATE CREATED AUTHOR 04/18/2019 [facility] DATE CREATED AUTHOR AUTHOR'S ORGANIZ ATION 06/10/2019 [facility] DATE CREATED AUTHOR AUTHOR'S ORGANIZ ATION 07/21/2021 [facility] DATE CREATED AUTHOR AUTHOR'S ORGANIZ ATION 10/22/2021 [facility] DATE CREATED AUTHOR AUTHOR'S ORGANIZ ATION 01/23/2022 [facility] DATE CREATED AUTHOR AUTHOR'S ORGANIZ ATION 08/04/[address] [facility] DATE CREATED AUTHOR AUTHOR'S ORGANIZ ATION 12/12/2022 [facility] DATE CREATED AUTHOR AUTHOR'S ORGANIZ ATION 07/27/2023 [facility] DATE CREATED AUTHOR AUTHOR'S ORGANIZ ATION 02/16/2024 [facility] DATE CREATED AUTHOR AUTHOR'S ORGANIZ ATION 06/19/2024 [facility] DATE CREATED AUTHOR AUTHOR'S ORGANIZ ATION 06/30/2024 [facility] DATE CREATED AUTHOR AUTHOR'S ORGANIZ ATION 11/27/2024 [facility] Reason for Visit (unrecogniz ed section and content) Status Reason Specialty Diagnoses / Procedures Referred By Contact Referred To Contact Pending Review Diagnoses Hx of total knee arthroplasty, right Procedures XR BONE LENGTH STUDY Alexandro Muhammad MD [address] [place] [address] Reason Comments Pain Status Reason Specialty Diagnoses / Procedures Referred By Contact Referred To Contact Closed Cardiovascular Medicine Diagnoses Localized edema Procedures ECHOCARDIOGRAM ME ECHO HEART XTHORACIC,COMPLETE W DOPPLER Suzanne Pruett MD [address] [place] [address] Horace Buc Echocardiograph y [address] [place] [address] Reason Comments Back Pain Lower back pain s/p slip on ice Buttocks Pain Rt buttocks pain Reason Comments New Patient Lumbar spine Specialty Diagnoses / Procedures Referred By Enoch luna Referred To Contact Neurosurgery / NEUROSURGERY Diagnoses lumbar spine eHealth records requested Procedures REFERRAL TO [facility]SEL[facility] NEW SPINE SURGICAL TRIAGE Jason Miller [address] [place] [address] [place] [address] [place] [address] Referral ID Status Reason Start Date Expiration Date V isits Requested Visits Authorized [id number] Outside PCP 11/05/2022 01/04/2023 99 99 Reason [...] POST OP NEUS/NRES Self Xi Schrader PA-C [id number] [place] [address] Referral ID Status Reason Start Date Expiration Date Visits Re quested Visits Authorized [id number] Closed 12/20/2022 02/24/2023 1 1 Reason Comments Received Outside Medical Records promedi ca Reason Comments Follow Up Specialty Diagnoses / Procedures Referred By Contac t Referred To Contact Neurosurgery / NEUROSURGERY Diagnoses Follow-up exam Follow Up Procedures OFFICE/OUTPATIENT ESTABLISHED MOD MDM 30-39 MIN EST NI PATIENT Self Xi Schrader PA-C [id number] [facility]. [place] [id number] Referral ID Status Reason Start Date Expiration Date Visits Re quested Visits Authorized [id number] Closed 02/07/2023 02/07/2023 1 1 Reason Comments PT Certification Specialty Diagnoses / Procedures Referred By Contac t Referred To Contact Neurosurgery / NEUROSURGERY Diagnoses Lumbar adjacent segment disease with spondylolisthesis discuss imaging and [facility] requirements Procedures PHYS/QHP TELEPHONE EVALUATION 5-10 MIN [place]IDEO [place] [address] [place] [place] [id number] Referral ID Status Reason Start Date Expiration Date V isits Requested Visits Authorized [id number] Denied Patient Cleared - Admin/Chairm an/Director advise [...] November 07, 2023 End: November 07, 2023 Research And Development Director Relationship Specialty Start Date End Date Blayne Isabel MD [address] [place] [address] PCP - General Family Medicine 04/11/19 Research And Development Director Relationship Specialty Start Date End Date Blayne Isabel MD [address] [place] [address] PCP - General Family Medicine 04/11/19 Research And Development Director Relationship Specialty Start Date End Date Blayne Isabel MD [address] [place] [address] PCP - General Family Medicine 04/11/19 Research And Development Director Relationship Specialty Start Date End Date Blayne Isabel MD [address] [place] [address] PCP - General Family Medicine 04/11/19 Team Status: Inactive Member Role Status Dates STEPH Sarkar Attending Provider Active Team Status: Inactive Member Role Status Dates PHYSICIAN NO FAMILY Primary Care Provider Active Gianni Nelson DO Attending Provider Active Team Status: Inactive Member Role Status Dates STEPH Sarkar Attending Provider Active PHYSICIAN NO FAMILY Primary Care Provider Active Research And Development Director Relationship Specialty Start Date End Date Blayne Isabel MD PCP - General Family Medicine 11/06/13 Research And Development Director Relationship Specialty Start Date End Date Blayne Isabel MD PCP - General Family Medicine 11/06/13 Research And Development Director Relationship Specialty Start Date End Date Blayne Isabel MD PCP - General Family Medicine 11/06/13 Research And Development Director Relationship Specialty Start Date End Date Blayne Isabel MD PCP - General Family Medicine 11/06/13 Research And Development Director Relationship Specialty Start Date End Date Blayne Isabel MD PCP - General Family Medicine 11/06/13 Research And Development Director Relationship Specialty Start Date End Date Blayne Isabel MD PCP - General Family Medicine 11/06/13 Research And Development Director Relationship Specialty Start Date End Date Blayne Isabel MD PCP - General Family Medicine 11/06/13 Research And Development Director Relationship Specialty Start Date End Date Blayne Isabel MD PCP - General Family Medicine 11/06/13 Research And Development Director Relationship Specialty Start Date End Date Blayne Isabel MD PCP - General Family Medicine 11/06/13 Research And Development Director Relationship Specialty Start Date End Date Blayne Isabel MD PCP - General Family Medicine 11/06/13 Research And Development Director Relationship Specialty Start Date End Date Blayne Isabel MD PCP - General Family Medicine 11/06/13 Research And Development Director Relationship Specialty Start Date End Date Blayne Isabel MD PCP - General Family Medicine 11/06/13 Research And Development Director Relationship Specialty Start Date End Date Blayne Isabel MD PCP - General Family Medicine 10/08/18 Research And Development Director Relationship Specialty Start Date End Date Blayne Isabel MD PCP - General Family Medicine 10/08/18 Research And Development Director Relationship Specialty Start Date End Date Blayne Isabel MD [address] [place] [address] PCP - General [facility] 10/08/18 Research And Development Director Relationship Specialty Start [place] [address] [place], [place] [id number] PCP - General Family Medicine 10/08/18 Research And Development Director Relationship Specialty Start Date End Date Blayne Isabel MD PCP - General Family Medicine 10/08/18 Research And Development Director Relationship Specialty Start Date End Date Blayne [...] RN)[phone] (Given - Provider: Batsheva Carias RN) 925 (Given - Provider: Jenny Lentz, [...] to back table, 1000 ml. for suction timber buyer.) sodium chloride flush 0.9 % injection 5-40 [...] or prosecute any alcohol or drug abuse patient.[facility] the event this information is protected by the Federal Confidentiality of Alcohol and Drug Abuse Patient Records regulations: The Federal rules restrict any use of the information to criminally investigate or prosecute any alcohol or drug abuse patient.[facility] the event this information is protected by the Federal Confidentiality of Alcohol and Drug Abuse Patient Records regulations: The Federal rules restrict any use of the information to criminally investigate or prosecute any alcohol or drug abuse patient.[facility] the event this information is protected by the Federal Confidentiality of Alcohol and Drug Abuse Patient Records regulations: The Federal rules restrict any use of the information to criminally investigate or prosecute any alcohol or drug abuse patient.[facility] the event this information is protected by the Federal Confidentiality of Alcohol and Drug Abuse Patient Records regulations: The Federal rules restrict any use of the information to criminally investigate or prosecute any alcohol or drug abuse patient.[facility] the event this information is protected by the Federal Confidentiality of Alcohol and Drug Abuse Patient Records regulations: The Federal rules restrict any use of the information to criminally investigate or prosecute any alcohol or drug abuse patient.[facility] the event this information is protected by the Federal Confidentiality of Alcohol and Drug Abuse Patient Records regulations: The Federal rules restrict any use of the information to criminally investigate or prosecute any alcohol or drug abuse patient.[facility] the event this information is protected by the Federal Confidentiality of Alcohol and Drug Abuse Patient Records regulations: The Federal rules restrict any use of the information to criminally investigate or prosecute any alcohol or drug abuse patient.[facility] the event this information is protected by the Federal Confidentiality of Alcohol and Drug Abuse Patient Records regulations: The Federal rules restrict any use of the information to criminally investigate or prosecute any alcohol or drug abuse patient.[facility] the event this information is protected by the Federal Confidentiality of Alcohol and Drug Abuse Patient Records regulations: The Federal rules restrict any use of the information to criminally investigate or prosecute any alcohol or drug abuse patient.[facility] the event this information is protected by the Federal Confidentiality of Alcohol and Drug Abuse Patient Records regulations: The Federal rules restrict any use of the information to criminally investigate or prosecute any alcohol or drug abuse patient.[facility] the event this information is protected by the Federal Confidentiality of Alcohol and Drug Abuse Patient Records regulations: The Federal rules restrict any use of the information to criminally investigate or prosecute any alcohol or drug abuse patient.[facility] the event this information is protected by the Federal Confidentiality of Alcohol and Drug Abuse Patient Records regulations: The Federal rules restrict any use of the information to criminally investigate or prosecute any alcohol or drug abuse patient.[facility] the event this information is protected by the Federal Confidentiality of Alcohol and Drug Abuse Patient Records regulations: The Federal rules restrict any use of the information to criminally investigate or prosecute any alcohol or drug abuse patient.[facility] the event this information is protected by the Federal Confidentiality of Alcohol and Drug Abuse Patient Records regulations: The Federal rules restrict any use of the information to criminally investigate or prosecute any alcohol or drug abuse patient.[facility] the event this information is protected by the Federal Confidentiality of Alcohol and Drug Abuse Patient Records regulations: The Federal rules restrict any use of the information to criminally investigate or prosecute any alcohol or drug abuse patient.[facility] the event this information is protected by the Federal Confidentiality of Alcohol and Drug Abuse Patient Records regulations: The Federal rules restrict any use of the information to criminally investigate or prosecute any alcohol or drug abuse patient.[facility] the event this information is protected by the Federal Confidentiality of Alcohol and Drug Abuse Patient Records regulations: The Federal rules restrict any use of the information to criminally investigate or prosecute any alcohol or drug abuse patient.[facility] the event this information is protected by the Federal Confidentiality of Alcohol and Drug Abuse Patient Records regulations: The Federal rules restrict any use of the information to criminally investigate or prosecute any alcohol or drug abuse patient.[facility] FOR RECORDS PERTAINING TO PATIENTS WHO [...] BE BASED ON THE PRIMARY CLINICAL RECORDS. [facility]. provides no warranty or guarantee of the accuracy or completeness of information in this document.
[2024-12-04 09:00] VITALS: BP 135/84; PULSE 68; TEMP 36.7; O2SAT 97
[2024-12-04] MEDS: 0.9 % SODIUM CHLORIDE 1,000 ML 500 ML IV (09:11)
== END 2024-12-04 08:04 | disposition home or self-care (01) ==
LOC: CT 08:03
PROVIDERS: PCP Family Medicine; Visit Provider Nurse Practitioner Family
DX: R06.02 Shortness of breath (principal)
CPT/HCPCS: 71275; Q9966

== ENCOUNTER 2024-12-04 08:43 | Outpatient (OUT) | payer OTHER, MEDICARE, SELFPAY ==
--- OUTSIDE RECORDS SUMMARY | 2024-12-04 08:12 | XMS_ITS | CCD ---
Author Organization [facility] CliniSyil Care Team Providers Care Montessori Toddler Teacher Name Role Phone Blayne Isabel Primary Care Provider SUZANNE DAVIES Attending Unavailable BLAYNE ISABEL Primary Care Unavailable ARSENIO BHATTI Referring Unavailable BLAYNE ISABEL Primary Care Unavailable ARSENIO BHATTI Referring Unavailable BLAYNE ISABEL Primary Care Unavailable ROSE SOTELO Attending Unavailable BLAYNE ISABEL Primary Care Unavailable BLAYNE ISABEL Consulting Unavailable Blayne Isabel Primary Care Provider [phone] Blayne Isabel Primary Care Provider Octavio Becker [...] Unava ilable DO Gianni Nelson Attending Provider [phone] Estephanie Lowry Admitting Unavailable Estephanie Lowry Attending [...] DR CISNEROS Referring Unavailable HOY ., DR ICSNEROS Consulting Unavailable [...] Attending Unavailable MYRANDA .SCARLET Consulting Unavailabl e HOEdgar ., DR CISNEROS Primary Care Unavailable MISC, DR GARCIA Consulting Unavailable MISC, DR GARCIA Admitting Unavailable MISC, DR GARCIA Attending Unavailable HOY ., DR CISNEROS Primary Care Unavailable Blayne Isabel MD Primary Care Provider [phone] [facility], THOMAS Attending Unavailable QUINCY THOMAS Admitting Unavailable HOY, BLAYNE M Primary Care Unavailable LULU OVIEDO Consulting UnavailBlayne Poole MD Primary Care Provider [phone] HOEdgar, BLAYNE M Primary Care Unavailable QUINCY, THOMAS Referring Unavailable MAITE GALLOWAY Referring Unavailable HOY, BLAYNE M Primary Care Unavailable HOY, BLAYNE M Primary Care Unavailable MAITE GALLOWAY Referring Unavailable Blayne Isabel MD Primary Care Provider [phone] AHSAN FLYNN Attending Unavailable HOY, BLAYNE M Referring Unavailable HOY, BLAYNE M Primary Care Unavailable AHSAN FLYNN Attending Unavailable HOY, BLAYNE M Referring Unavailable HOY, BLAYNE M Primary Care Unavailable AHSAN FLYNN Attending Unavailable HOY, BLAYNE M Referring Unavailable HOY, BLAYNE M Primary Care Unavailable Blayne Isabel MD Primary Care Provider [phone] PAYTON HELM Referring Unavailable PAYTON HELM Attending Unavailable PAYTON HELM Attending Unavailable Yarely Canada Attending Unavailable Cecelia MURILLO Attending Unavailable Cecelia Fernandez Referring Unavailable Cecelia Fernandez Attending Unavailable Cecelia MURILLO Attending Unavailable Cecelia MURILLO Attending Unavailable Cecelia MURILLO Attending Unavailable Unavailable Unavailable Unavailable Allergies Allergy Classification Reported Allergen(s) Allergy Type Date of Onset Reaction(s) Facility (17 sources) Povidone-Iodine; Translations: [povidone iodine topical] Drug Allergy [address] [facility] (11 sources) Povidone-Iodine; Translations: [povidone-iodine] Drug Allergy 9 [facility] (9 sources) soap; Translations: [soap] Allergy to substance 9 [facility] (14 sources) Chlorhexidine; Translations: [CHLORHEXIDINE] Drug Allergy 1 [facility] (14 sources) Iodine; Translations: [IODINE] Drug Allergy 9 [facility] Work Phone: (16 sources) Loratadine; Translations: [loratadine] Drug Allergy 2 rash hives [facility] (1 source) Chlorhexidine Drug Allergy [facility] (1 source) Adhesive bandage Drug allergy Eruption of skin (disorder) [facility] (1 source) Povidone-Iodine; Translations: [Betadine] Drug Allergy [facility] Repository Medications Current Medications Medication Drug [...] carlos th every 4 hours as needed. [id number] 200 actuat albuterol 0.09 mg/actuat metered dose [...] Comment on above: Take 1 capsule by [facility] two times a day. doxazosin 4 [...] Active Start: 01-05-2021 take 1 capsule by [facility] every week vitamin D (ERGOCALCIFEROL) 1.25 MG (74483 UT) CAPS capsule Indications: Vitamin D deficiency [...] 1 Start: 03-19-2022 take 1 tablet by [facility] twice daily FeroSul 325 mg oral tablet [...] Repeat number: 1 take 1 tablet by [facility] every twenty-four hours Irbesartan 150 MG 1 [...] Status: Ordered take 1 tablet by juan acrlos th every six hours as needed LORazepam [...] Comment on above: Take 1 capsule by [facility] twice daily. 2 ml ondansetron [...] 07, 2023 12:00am take 1 capsule by [facility] once daily in the morning phentermine [...] Repeat number: 1 take 2 tablets by [facility] in the morning pioglitazone (ACTOS) 15 [...] 2 Episodic Other aftercare (1 source) Other fci (current) drug therapy; Translations: [OTH FDC CURRENT [...] Cecelia MURILLO MD Where: [facility] [address] [address]- You Need to Schedule the Following Appointments Follow Up with Cecelia MURILLO MD, URL When: Comments: as scheduled Where: [facility] [place] [address]- Medications What How Much When Instructions Unchanged [...] Sleep apnea (more content not included)... Normal [facility] Urology Office/Clinic Noteon 11-19-2024 Urology Office/Clinic [...] acquired) Seen in consult on 06/29/21 at [facility]. 11/14/21 - BUN 19.0. Crea 1.62. [...] Contact Information Cecelia MURILLO MD, URL [address] [place] [address]- Additional Instructions: as scheduled Patient Education Kidney Stones, [id number] Problem List/Past Medical History Ongoing Acute diarrhea [...] stent (0 (more content not included)... Normal [facility] Comment on above: Result Comment: Elec [...] Cecelia MURILLO MD Where: [facility] [address] [address]- You Need to Schedule the Following Appointments Follow Up with Kaykay MURILLO MDrick R, URL When: Where: [address] [place], [place] [id number]- Medications What How Much When Instructions Unchanged [...] obstructio (more content not included)... Normal [facility] Urology Office/Clinic Noteon 08-07-2024 Urology Office/Clinic Note Urology Office/Clinic Note Chief Complaint 18 month f/u with SÁNCHEZ and KUB HPI Staff 58 year old male patient here for follow up with KUB/SÁNCHEZ. KUB/SÁNCHEZ done 07/16/24 @ [facility]. Previous dx: renal mass, kidney stone, [...] acquired) Seen in consult on 06/29/21 at [facility]. 11/14/21 - BUN 19.0. Crea 1.62. [...] Information LIDIA JACOBS, Cecelia Jj, URL [address] [place] [id number]- Additional Instructions: 1 year w/ KUB and [...] BMI 40.0- (more content not included)... Normal [facility] Comment on above: Result Comment: Elec tronically Signed By: Cecelia MURILLO MD\.br\Date and Time Signed: 08/07/24 12:00 EDT\.br\Electronically Co-Signed By: Jacqueline Calero\.br\Date and Time Co-Signed: 08/07/24 11:53 EDT\.br\Electronically Co-Signed By: Jacqueline Calero\.br\Date and Time Co-Signed: 08/07/24 11:56 EDT\.br\Electronically Co-Signed By: Jacqueline Calero\.br\Date and Time Co-Signed: 08/07/24 11:57 EDT [facility] Patient Letter [facility] June 22, 2024 SUKHDEEP SIMENTAL [address] [place] [address] : 1965 Dear Mr. Sukhdeep Simental, You [...] any future cancellations. Sincerely, [facility] [place] [id number] [phone] Normal [facility] Follow-Upon 06-17-2024 Follow-Up [id number] Sukhdeep Simental F 1965 M Date Provider Department Center 06/17/2024 [facility]TON GRIFFITH [facility] Family History Problem Relation Age of Onset Dementia Mother Esophageal cancer Father Alcohol abuse Father Family Status - Relation Status Age at Mother Alive Father Level of Service:29147 [place] OFFICE/OUTPATIENT ESTABLISHED SF MDM 10 MIN Normal [facility] 36on 05-18-2024 36 Will need to see the patient as soon as possible repeat x-rays and blood test to further evaluate as he has had previous infections and has high risk for recurrent infections and 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 PT WILL COME IN TODAY Normal [facility] BASIC METABOLIC PANELon -2 Anion gap [Moles/Vol] 12 mmol/L Normal - [facility] Comment on above: Performed By: #### L [id number] #### [facility] ([facility]) [address] [place] [address] Calcium [Mass/Vol] 9.9 mg/dL Normal 8.6-10.3 [facility] Comment on above: Performed By: #### L [id number] #### [facility] [address] [place] [address] Chloride [Moles/Vol] 105 mmol/L Normal 98-107 [facility] Comment on above: Performed By: #### L [id number] #### [facility] ([facility]) [address] [place] [address] CO2 [Moles/Vol] 27 mmol/L Normal 21-31 [facility] Comment on above: Performed By: #### L [id number] #### [facility] ([facility]) [address] [place] [address] Creatinine [Mass/Vol] 1.42 mg/dL High 0.70-1.30 [facility] Comment on above: Performed By: #### L [id number] #### [facility] ([facility]) [address] [place] [address] GLOMERULAR FILTRATION RATE ML/MIN/1.73 SQ M.PREDICTED 56.6 mL/min/1.73m*2 Low >60.0 [facility] Comment on above: Result Comment: The [facility]???s estimated glomerular filtration rate (eGFR) will [...] L [id number] #### [facility] ([facility]) [address] [place] [address] Glucose [Mass/Vol] 102 mg/dL High 70-100 [facility] Comment on above: Performed By: #### L [id number] #### [facility] ([facility]) [address] [place] [address] Potassium [Moles/Vol] 4.4 mmol/L Normal 3.5-5.1 [facility] Comment on above: Performed By: #### L [id number] #### [facility] ([facility]) [address] [place] [address] Sodium [Moles/Vol] 140 mmol/L Normal 136-145 [facility] Comment on above: Performed By: #### L [id number] #### [facility] ([facility]) [address] [place] [address] Urea nitrogen [Mass/Vol] 23 mg/dL Normal 7-25 [facility] Comment on above: Performed By: #### L [id number] #### [facility] ([facility]) [address] [place] [address] UREA NITROGEN/CREATININE (MASS RATIO) IN SER/PLAS 16.2 Normal [facility] Comment on above: Performed By: #### L [id number] #### [facility] ([facility]) [address] [place] [address] C-REACTIVE PROTEINon 025 C REACTIVE PROTEIN (MG/L) IN SER/PLAS <5.4 Normal <=5.0 [facility] Comment on above: Result Comment: Test ing performed using a new methodology, turbidimetry. Normal ranges have been updated. Old normal range was <8 mg/L. Performed By: #### L [id number] #### [facility] ([facility]) [address] [place] [address] CBC WITH AUTO DIFFERENTIALon 05-18-2024 Basophils (Bld) [#/Vol] 0.06 10*3/uL Normal 0.00-0.20 [facility] Comment on above: Performed By: #### L [id number] #### [facility] ([facility]) [address] [place] [address] Basophils/100 WBC (Bld) 0.7 % Normal 0.0-1.0 [facility] Comment on above: Performed By: #### L [id number] #### [facility] ([facility]) [address] [place] [address] Eosinophils (Bld) [#/Vol] 0.15 10*3/uL Normal 0.00-0.50 [facility] Comment on above: Performed By: #### L [id number] #### [facility] ([facility]) [address] [place] [address] Eosinophils/100 WBC (Bld) 1.8 % Normal 0.0-6.0 [facility] Comment on above: Performed By: #### L [id number] #### [facility] ([facility]) [address] [place] [address] Erythrocyte distribution width (RBC) [Ratio] 11.9 % Normal 11.5-15.0 [facility] Comment on above: Performed By: #### L [id number] #### [facility] ([facility]) [address] [place] [address] ERYTHROCYTE MEAN CORPUSCULAR HEMOGLOBIN CONCENTRATION (G/DL) BY AUTOMATED 34.5 g/dL Normal 32.0-35.0 [facility] Comment on above: Performed By: #### L [id number] #### [facility] ([facility]) [address] [place] [address] Hematocrit (Bld) [Volume fraction] 47.8 % Normal 39.0-50.0 [facility] Comment on above: Performed By: #### L [id number] #### [facility] ([facility]) [address] [place] [address] Hemoglobin (Bld) [Mass/Vol] 16.5 g/dL Normal 13.0-17.0 [facility] Comment on above: Performed By: #### L [id number] #### [facility] ([facility]) [address] [place] [address] Immature granulocytes (Bld) [#/Vol] 0.03 10*3/uL Normal 0.00-0.20 [facility] Comment on above: Performed By: #### L [id number] #### [facility] ([facility]) [address] [place] [address] Immature granulocytes/100 WBC (Bld) 0.4 % Normal 0.0-1.0 [facility] Comment on above: Performed By: #### L [id number] #### [facility] ([facility]) [address] [place] [address] Lymphocytes (Bld) [#/Vol] 1.80 10*3/uL Normal 1.20-4.00 [facility] Comment on above: Performed By: #### L [id number] #### [facility] ([facility]) [address] [place] [address] Lymphocytes/100 WBC (Bld) 21.8 % Normal 20.0-45.0 [facility] Comment on above: Performed By: #### L [id number] #### [facility] ([facility]) [address] [place] [address] MCH (RBC) [Entitic mass] 31.5 pg Normal 27.0-33.0 [facility] Comment on above: Performed By: #### L [id number] #### [facility] ([facility]) [address] [place] [address] MCV (RBC) [Entitic vol] 91.4 fL Normal 82.0-98.0 [facility] Comment on above: Performed By: #### L [id number] #### [facility] ([facility]) [address] [place] [address] Monocytes (Bld) [#/Vol] 0.66 10*3/uL Normal 0.10-1.00 [facility] Comment on above: Performed By: #### L [id number] #### [facility] ([facility]) [address] [place] [address] Monocytes/100 WBC (Bld) 8.0 % Normal 5.0-12.0 [facility] Comment on above: Performed By: #### L [id number] #### [facility] ([facility]) [address] [place] [address] Neutrophils (Bld) [#/Vol] 5.56 10*3/uL Normal 1.60-7.60 [facility] Comment on above: Performed By: #### L [id number] #### [facility] ([facility]) [address] [place] [address] Neutrophils/100 WBC (Bld) 67.3 % Normal 40.0-72.0 [facility] Comment on above: Performed By: #### L [id number] #### [facility] ([facility]) [address] [address] NRBC (PER 100 WBCS) BY AUTOMATED COUNT 0.0 % Normal 0 [facility] Comment on above: Performed By: #### L [id number] #### [facility] ([facility]) [address] [place] [address] PLATELETS (10*3/UL) IN BLOOD AUTOMATED COUNT 247 10*3/uL Normal 150-400 [facility] Comment on above: Performed By: #### L [id number] #### [facility] ([facility]) [address] [place] [address] RBC (Bld) [#/Vol] 5.23 10*6/uL Normal 4.20-5.70 [facility] Comment on above: Performed By: #### L [id number] #### [facility] ([facility]) [address] [place] [address] WBC (Bld) [#/Vol] 8.26 10*3/uL Normal 4.00-10.60 [facility] Comment on above: Performed By: #### L [id number] #### [facility] ([facility]) [address] [place] [address] Follow-Upon 05-18-2024 Follow-Up [id number] Sukhdeep Simental 1965 M Date Provider Department Center 05/18/2024 PAYTON GRIFFITH [facility] Family History Problem Relation Age of Onset Dementia Mother Esophageal cancer Father Alcohol abuse Father Family Status - Relation Status Age at Mother Alive Father Level of Service:02479 [place] OFFICE/OUTPATIENT ESTABLISHED MOD MDM 30 MIN () Reason for Visit and Comments: Pain [136] - Swelling starts 2 months ago, started swimming about a month ago and it only made his knee worse Edema [[id number]] - Swelling starts 2 months ago, started swimming about a month ago and it only made his knee worse Normal [facility] Labon 05-18-2024 Lab [id number] Sukhdeep Simental 1965 M Date Provider Department Center 05/18/20244-[facility] MP LAB RESOURCE MP DRAW Medical Pavi Family History Problem Relation Age of Onset Dementia Mother Esophageal cancer Father Alcohol abuse Father Family Status - Relation Status Age at Mother Alive Father Normal [facility] SEDIMENTATION RATEon 025 SEDIMENTATION RATE, ERYTHROCYTE 5 mm/hr Normal <20 [facility] Comment on above: Performed By: #### L [id number] #### [facility] ([facility]) [address] [place] [address] 36on 05-15-2024 36 Patient feels like h is infection is back. Right knee swelling and pain but no fever. He was seen by Dr. Isabel and he put him on oral antibiotics and wanted Dr. Helm know in case he wants him to come in and be exam. Normal [facility] Erythrocyte distribution wid th Auto (RBC) [Ratio]on 10-29-2023 Erythrocyte distribution width (RBC) [Ratio] 11.5 % 11.0-15.0 [facility] Estimated glomerular filtrat ion rate (GFR) non- Americanon 10-29-2023 GFR/1.73 sq M.predicted among non-blacks MDRD (S/P/Bld) [Vol rate/Area] 51 mL/min/{1.73_m2} Low >=60 [facility] Hematocrit Auto (Bld) [Volum e fraction]on 10-29-2023 Hematocrit (Bld) [Volume fraction] 47.7 % 42.0-54.0 [facility] Hemoglobin [Mass/volume] in Bloodon 10-29-2023 Hemoglobin (Bld) [Mass/Vol] 16.8 g/dL 14.0-18.0 [facility] Laboratory - Chemistry and C hemistry - challengeon 10-29-2023 Albumin [Mass/Vol] 3.7 g/dL 3.4-5.0 [facility] Calcium [Mass/Vol] 9.0 mg/dL 8.5-10.1 [facility] Chloride [Moles/Vol] 103 mmol/L 98-107 [facility] CO2 [Moles/Vol] 26.8 mmol/L 21.0-32.0 [facility] Creatinine [Mass/Vol] 1.41 mg/dL High 0.70-1.30 [facility] GFR/1.73 sq M.predicted MDRD (S/P/Bld) [Vol rate/Area] mL/min/{1.73_m2} >=60 [facility] Glucose [Mass/Vol] 167 mg/dL High 74-106 [facility] Magnesium [Mass/Vol] 1.9 mg/dL 1.8-2.4 [facility] Potassium [Moles/Vol] 3.9 mmol/L 3.5-5.1 [facility] Sodium [Moles/Vol] 141 mmol/L 136-145 [facility] Urate [Mass/Vol] 7.9 mg/dL High 3.5-7.2 [facility] Urea nitrogen [Mass/Vol] 26.0 mg/dL High 7.0-18.0 [facility] Urea nitrogen/Creatinine [Mass ratio] 18.4 mg/mg [facility] Bilirubin Ql (U) Negative NEGATIVE [facility] Glucose (U) [Mass/Vol] Negative NEGATIVE [facility] Ketones Ql (U) Negative NEGATIVE [facility] pH (U) 6.0 [pH] 5.0-9.0 [facility] Specific gravity (U) [Rel density] 1.015 1.005-1.025 [facility] Urobilinogen Qn (U) 0.2 {Dahiana'U}/dL 0.2-1.0 [facility] Laboratory - Specimen inform ationon 10-29-2023 Appearance (U) CLEAR CLEAR [facility] Color (U) LT. YELLOW YELLOW [facility] Laboratory - Urinalysison Hyaline casts LM Ql (Urine sed) RARE [facility] Leukocyte esterase Test strip Ql (U) Negative NEGATIVE [facility] Mucus Ql (Urine sed) NONE SEEN NONE SEEN [facility] Nitrite Ql (U) Negative NEGATIVE [facility] Protein Ql (U) Negative NEG/TRACE [facility] Leukocytes [#/volume] correc romaine for nucleated erythrocytes in Blood by Automated counon 10-29-2023 WBC corrected for nucl RBC Auto (Bld) [#/Vol] 6.9 10 3/uL 4.0-11.0 [facility] MCH Auto (RBC) [Entitic mass ]on 10-29-2023 MCH (RBC) [Entitic mass] 32.2 pg 25.9-34.0 [facility] MCHC Auto (RBC) [Mass/Vol]on 10-29-2023 MCHC (RBC) [Mass/Vol] 35.2 g/dL 29.9-35.2 [facility] MCV Auto (RBC) [Entitic vol] on 10-29-2023 MCV (RBC) [Entitic vol] 91.6 fL 80.0-94.0 [facility] No Panel Informationon 10-28 25-Hydroxy Vitamin D Total 40.8 ng/mL [facility] Comment on above: <20 ng/mL Vit D defi cient20-<30 ng/mL Vit D [id number] ng/mL Vit D sufficient>100 ng/mL Potential Toxicity Parathyroid Hormone (Intact) 91 pg/mL Abnormal 15-65 [facility] Comment on above: Performed at: CB - [facility] [address] [id number] Director: Logan Martinez PhD, Phone: [phone] Phosphorus Level 2.3 mg/dL Low 2.6-4.7 [facility] Urine Bacteria NONE SEEN #/HPF NONE SEEN [facility] Urine Occult Blood Negative NEGATIVE [facility] Urine Other Casts SEEN #/LPF Abnormal NONE SEEN [facility] Urine Random Creatinine 15.18 mg/dL Low 20.00-300.00 [facility] Urine Random Total Protein <6.0 mg/dL <=11.9 [facility] Urine RBC NONE SEEN #/HPF 0-2 [facility] Urine Squamous Epithelial Cells FEW #/LPF Abnormal NONE/RARE [facility] Urine WBC NONE SEEN #/HPF NONE SEEN [facility] Platelet mean volume Auto (B ld) [Entitic vol]on 10-29-2023 Platelet mean volume (Bld) [Entitic vol] 8.9 fL Low 9.5-13.5 [facility] Platelets Auto (Bld) [#/Vol] on 10-29-2023 Platelets (Bld) [#/Vol] 236 10 3/uL 150-450 [facility] RBC Auto (Bld) [#/Vol]on RBC (Bld) [#/Vol] 5.21 10 6/uL 4.70-6.10 [facility] Serum or plasma anion gap de terminationon 10-29-2023 Anion gap [Moles/Vol] 15.1 mmol/L [facility] CNPNon 10-07-2023 CNPN Telephone (NEADFV) SUKHDEEP SIMENTAL ([id number]) 1965 M Date Time Provider Department 10/07/23 [...] Encounter Status:Closed by ARIANNA [facility]MAD [facility] [facility] SUKH[facility]EP SIMENTAL ([id number]) 1965 M Date Time Provider Department 10/04/23 [facility] During your visit today, we recorded [...] Status:Closed by JUAN PABLO NOVA on 10/04/23 [facility] 07-30-2023 CNPN Telephone (NEADFV) SUKHDEEP SIMENTAL ([id number]) 1965 M Date Time Provider Department 07/30/23 [facility] During your visit today, we recorded the following information about you: Arianna Little 07/30/2023 11:51 AM Signed Pt phoned regarding upcoming visit 10/06 [employer] [facility] appt. Pt unable to manage virtual visit asking for telephone visit. Pt asking how far in advance to do X-Ray. Pt will have X-Ray done locally at [facility]. Please call and advise Pt phone # [phone] Ekaterina Rondon 07/30/2023 1:07 PM Signed Have sent XR Lumbar order to [facility] fax # [phone] as requested from patient. Riddhi Goss APRN.[facility] 07/30/2023 3:25 PM Signed Called Sukhdeep, [...] Encounter Status:Closed by RIDDHI GOSS on 07/30/23 [facility] 07-23-2023 CNPN Telephone (NIQ) SUKHDEEP SIMENTAL ([id number]) 1965 M Date Time Provider Department 07/23/23 [facility] During your visit today, we recorded the following information about you: Brenda Alex 07/23/2023 9:38 AM Signed Received request from [employer] needing more info, in [employer] for review. Juan Pablo Nova RN 07/23/2023 [...] Status:Closed by JUAN PABLO NOVA on 07/26/23 [facility] 04-16-2023 CNPN Telephone (NIQ) SUKHDEEP SIMENTAL ([id number]) 1965 M Date Time Provider Department 04/16/23 THOMAS MATHEW During your visit today, we recorded the following information about you: Moriah Ferguson 04/16/2023 1:27 PM Signed Received imaging disc by mail from [facility]. Disc contains CT Lumbar spine done [...] Encounter Status:Closed by MORIAH FERGUSON on 06/06/23 [facility] 04-10-2023 HARIKA Telephone (NIQ) SUKHDEEP SIMENTAL ([id number]) 1965 M Date Time Provider Department 04/10/23 [...] Status:Closed by JUAN PABLO NOVA on 04/18/23 [facility] 04-09-2023 OLGAN Telephone (NIQ) SUKHDEEP SIMENTAL ([id number]) 1965 M Date Time Provider Department 04/09/23 THOMAS MATHEW During your visit today, we recorded the following information about you: Brenda Alex 04/09/2023 10:[address] Lumbar Spine Report from [facility], in epic to review. Brittany Rubio [...] Encounter Status:Closed by ROBSON LAZO on 04/09/23 [facility] Telephone (NIQ) SUKHDEEP SIMENTAL ([id number]) 1965 M Date Time Provider Department 02/11/23 THOMAS MATHEW During your visit today, we recorded the following information about you: Moriah Ferguson 02/11/2023 1:36 PM Signed [facility] C[facility], and [employer] 14. See fax scanned in patient's chart. Juan Pablo Nova RN 02/13/2023 3:14 PM Signed Information faxed to number requested. Faxed verification received. Robson De Jesus 03/06/2023 3:20 PM Signed Received updated notes from [facility] dated 03/05/23. Scanned into [employer]. Allergies As of Date: 02/11/2023 (No Known Allergies) Date Reviewed: 02/07/2023 Reviewed by: Brittany Ratliff - Fully Assessed Reason for Visit: [facility] (Worker's Comp) [4136] Prescriptions as [...] Status:Closed by JUAN PABLO NOVA on 02/13/23 [facility] Telephone (NIQ) SUKHDEEP SIMENTAL ([id number]) 1965 M Date Time Provider Department 12/21/22 THOMAS MATHEW During your visit today, we recorded the following information about you: Moriah Ferguson 12/21/2022 9:29 AM Signed Patient called with complaints of [facility] not allowing him to sampler pickup the pain medication that was sent yesterday. [...] Encounter Status:Closed by XI SCHRADER on 12/21/22 [facility] 12-18-2022 CNPN Telephone (PODCCP) SUKHDEEP SIMENTAL ([id number]) 1965 [place] Date Time Provider Department 12/18/22 BLAYNE ISABEL PODCCP During your visit today, we recorded the following information about you: Amaury Carreon 12/18/2022 1:52 PM Signed PATIENT INFORMATION Record ID: [id number] Patient Name: [facility]: [facility]: [facility] Attending: Thomas Mathew Center: [facility] INSTRUCTIONS SN to remind patient of next upcoming appointment date, time, location SN TRANSFER TO [facility] SURVEY INFORMATION Medical/Nurse House Visitor: Amaury Calderón 1. Your discharge instructions are [...] Reason for Visit: Follow Up Phone Call [2494] Cmt: All Clear Prescriptions as of 12/18/2022 [...] Encounter Status:Closed by AMAURY CARREON on 12/18/22 [facility] 12-14-2022 [facility] Telephone (NIQ) SUKHDEEP SIMENTAL ([id number]) 1965 M Date Time Provider Department 12/14/22 [facility] During your visit today, we recorded [...] via voice mail, as requested. Scanned into [employer]. Allergies As of Date: 12/14/2022 (No Known [...] Status:Closed by ABBY HERNANDEZ on 12/17/22 Normal [facility] Basic metabolic 2000 panelon 12-11-2022 Anion gap [Moles/Vol] 8 mmol/L Low 9-18 [facility] Comment on above: Order Comment: Speci men Type: BLOOD SPECIMEN Ordering Facility: [facility] Address: [address] [place] [address] Performed By: #### 2 4321-2 #### [facility] CLIA [id number] [address] [place] [address] [place] Calcium [Mass/Vol] 8.7 mg/dL Normal 8.5-10.2 [facility] Comment on above: Order Comment: Speci men Type: BLOOD SPECIMEN Ordering Facility: [facility] Address: [address] [place] [address] Performed By: #### 2 4321-2 #### [facility] CLIA [id number] [address] [place] [address] [place] Chloride [Moles/Vol] 106 mmol/L High 97-105 [facility] Comment on above: Order Comment: Speci men Type: BLOOD SPECIMEN Ordering Facility: [facility] Address: [address] [place] [address] Performed By: #### 2 4321-2 #### [facility] CLIA [id number] [address] [place], [place] [address] [place] CO2 [Moles/Vol] 29 mmol/L Normal 22-30 [facility] Comment on above: Order Comment: Speci men Type: BLOOD SPECIMEN Ordering Facility: [facility] Address: [address] [place] [address] Performed By: #### 2 4321-2 #### [facility] CLIA [id number] [address] [place] [address] [place] Creatinine [Mass/Vol] 1.17 mg/dL Normal 0.73-1.22 [facility] Comment on above: Order Comment: Speci men Type: BLOOD SPECIMEN Ordering Facility: [facility] Address: [address] [place] [address] Performed By: #### 2 4321-2 #### [facility] CLIA [id number] [address] [place], [place] [address] [place] Creatinine and Glomerular filtration rate.predicted panel (S/P/Bld) 72 mL/min/1.73m??? Normal >=60 [facility] Comment on above: Order Comment: Shahrzad dumont Type: BLOOD SPECIMEN Ordering Facility: [facility] Address: [place] [address] Result Comment: Leah mated Glomerular Filtration Rate [...] GFR. Performed By: #### 2 4321-2 #### [facility] IA [id number] [address] [place] [address] [place] Glucose [Mass/Vol] 98 mg/dL Normal 74-99 [facility] Comment on above: Order Comment: Shahrzad dumont Type: BLOOD SPECIMEN Ordering Facility: [facility] Address: [place] [address] Result Comment: The [place] Diabetes Association (ADA) provides guidance for cutoff [...] Standards of Medical Care in Diabetes 2016, [place] [employer]. Diabetes Care. 2016.39(Suppl 1). Performed By: #### 2 4321-2 #### [facility] [place] [id number] [address] [place], [place] [address] [place] Potassium [Moles/Vol] 4.8 mmol/L Normal 3.7-5.1 [facility] Comment on above: Order Comment: Speci men Type: BLOOD SPECIMEN Ordering Facility: [facility] Address: [address] [place] [address] Performed By: #### 2 4321-2 #### [facility] CLIA [id number] [address] [place] [address] [place] Sodium [Moles/Vol] 143 mmol/L Normal 136-144 [facility] Comment on above: Order Comment: Speci men Type: BLOOD SPECIMEN Ordering Facility: [facility] Address: [address] [place] [address] Performed By: #### 2 4321-2 #### [facility] CLIA [id number] [address] [place] [address] [place] Urea nitrogen [Mass/Vol] 13 mg/dL Normal 9-24 [facility] Comment on above: Order Comment: Speci men Type: BLOOD SPECIMEN Ordering Facility: [facility] Address: [address] [place] [address] Performed By: #### 2 4321-2 #### [facility] CLIA [id number] [address] [place] [address] OF ARELY CASE MANAGEMon 12-11-2022 CASE MANAGEM HNO ID: [id number] Author: Gloria Toro RN Service: ? Author Type: Registered Nurse Type: Care Mgt Progress Note Filed: 12/11/2022 3:26 PM Note Text: CARE MANAGEMENT PROGRESS NOTE SERVICE DATE: 12/11/2022 SERVICE TIME: 3:26 pm LOS: 4 days No further skilled PT / OT needed at OR. SIGNATURE: Gloria Toro RN PATIENT NAME: Sukhdeep Simental DATE: December 11, 2022 TIME: 3:25 PM PAGER/CONTACT #: [phone] Normal [facility] CBC panel Auto (Bld)on 12-11 Erythrocyte distribution width (RBC) [Ratio] 12.5 % Normal 11.5-15.0 [facility] Comment on above: Order Comment: Speci men Type: BLOOD SPECIMEN Ordering Facility: [facility] Address: [address] [place] [address] Performed By: #### 5 8410-2 #### [facility] CLIA [id number] [address] [place] [address] [place] Hematocrit (Bld) [Volume fraction] 34.6 % Low 39.0-51.0 [facility] Comment on above: Order Comment: Speci men Type: BLOOD SPECIMEN Ordering Facility: [facility] Address: [address] [place] [address] Performed By: #### 5 8410-2 #### [facility] IA [id number] [address] [place] [address] [place] Hemoglobin (Bld) [Mass/Vol] 11.7 g/dL Low 13.0-17.0 [facility] Comment on above: Order Comment: Speci men Type: BLOOD SPECIMEN Ordering Facility: [facility] Address: [address] [place] [address] Performed By: #### 5 8410-2 #### [facility] IA [id number] [address] [place] [address] [place] MCH (RBC) [Entitic mass] 32.0 pg Normal 26.0-34.0 [facility] Comment on above: Order Comment: Speci men Type: BLOOD SPECIMEN Ordering Facility: [facility] Address: [address] [place] [address] Performed By: #### 5 8410-2 #### [facility] IA [id number] [address] [place] [address] [place] MCHC (RBC) [Mass/Vol] 33.8 g/dL Normal 30.5-36.0 [facility] Comment on above: Order Comment: Speci men Type: BLOOD SPECIMEN Ordering Facility: [facility] Address: [address] [place] [address] Performed By: #### 5 8410-2 #### [facility] CLIA [id number] [address] [place] [address] [place] MCV (RBC) [Entitic vol] 94.5 fL Normal 80.0-100.0 [facility] Comment on above: Order Comment: Speci men Type: BLOOD SPECIMEN Ordering Facility: [facility] Address: [address] [place] [address] Performed By: #### 5 8410-2 #### [facility] CLIA [id number] [address] [place] [address] [place] Nucleated RBC (Bld) [#/Vol] 10*3/uL Normal <0.01 [facility] Comment on above: Order Comment: Speci men Type: BLOOD SPECIMEN Ordering Facility: [facility] Address: [address] [place] [address] Performed By: #### 5 8410-2 #### [facility] CLIA [id number] [address] [place] [address] [place] Platelet mean volume (Bld) [Entitic vol] 9.4 fL Normal 9.0-12.7 [facility] Comment on above: Order Comment: Speci men Type: BLOOD SPECIMEN Ordering Facility: [facility] Address: [address] [place] [address] Performed By: #### 5 8410-2 #### [facility] CLIA [id number] [address] [place] [address] [place] Platelets (Bld) [#/Vol] 196 10*3/uL Normal 150-400 [facility] Comment on above: Order Comment: Speci men Type: BLOOD SPECIMEN Ordering Facility: [facility] Address: [address] [place] [address] Performed By: #### 5 8410-2 #### [facility] CLIA [id number] [address] [place] [address] [place] RBC (Bld) [#/Vol] 3.66 10*6/uL Low 4.20-6.00 [facility] Comment on above: Order Comment: Speci men Type: BLOOD SPECIMEN Ordering Facility: [facility] Address: [address] [place] [address] Performed By: #### 5 8410-2 #### [facility] CLIA [id number] [address] [place] [address] [place] WBC (Bld) [#/Vol] 9.04 10*3/uL Normal 3.70-11.00 [facility] Comment on above: Order Comment: Shahrzad dumont Type: BLOOD SPECIMEN Ordering Facility: [facility] Address: [address] [place] [id number] Performed By: #### 5 8410-2 #### [facility] CLIA [id number] [address] [place] [address] [place] CNDSon 12-11-2022 CNDS HNO ID: [id number] Author: Brittany Rubio PA-C Service: Neurosurgery Author Type: Physician House Visitor Type: Discharge Summary Filed: 12/11/2022 10:38 AM [...] you become constipated, you may use any izgi-ehh-zuogcgf treatment such as Milk of Magnesia, Sennakot, Prune Juice, Suppositories, etc. in addition to the stool softener/fiber supplement No alcohol or driving while on pain medication Use the dispensed medication (see prescription) You should use an njfh-hkv-mlleook stool softener (Docusate sodium) and/or a fiber [...] call for appointment?: (more content not included)... [facility] CONSULTon 12-11-2022 CONSULT HNO ID: [id number] Author: Jaiden Rucker PA-C Service: Pain Management Author Type: Physician House Visitor Type: Consults Filed: 12/11/2022 8:09 AM Note [...] 8/10 Lack of pain control with iv employment program representative fentanyl and dilaudid PERTINENT ROS: denies fever, [...] (fL) Date Saniya (more content not included)... [facility] NURSING PROGon 12-11-2022 NURSING PROG HNO ID: [id number] Author: Erlinda Bui RN Service: Nursing Author [...] information. Patient verbalizing understanding of instructions. Normal [facility] Basic metabolic 2000 panelon 12-10-2022 Anion gap [Moles/Vol] 7 mmol/L Low - [facility] Comment on above: Order Comment: Speci men Type: BLOOD SPECIMEN Ordering Facility: [facility] Address: [address] [place] [address] Performed By: #### 2 4321-2 #### [facility] CLIA [id number] [address] [place] [address] [place] Calcium [Mass/Vol] 8.3 mg/dL Low 8.5-10.2 [facility] Comment on above: Order Comment: Speci men Type: BLOOD SPECIMEN Ordering Facility: [facility] Address: [address] [place] [address] Performed By: #### 2 4321-2 #### [facility] CLIA [id number] [address] [place] [address] [place] Chloride [Moles/Vol] 107 mmol/L High 97-105 [facility] Comment on above: Order Comment: Speci men Type: BLOOD SPECIMEN Ordering Facility: [facility] Address: [address] [place] [address] Performed By: #### 2 4321-2 #### [facility] CLIA [id number] [address] [place] [id number] [place] CO2 [Moles/Vol] 26 mmol/L Normal 22-30 [facility] Comment on above: Order Comment: Speci men Type: BLOOD SPECIMEN Ordering Facility: [facility] Address: [address] [place] [address] Performed By: #### 2 4321-2 #### [facility] CLIA [id number] [address] [place] [address] [place] Creatinine [Mass/Vol] 1.16 mg/dL Normal 0.73-1.22 [facility] Comment on above: Order Comment: Shahrzad dumont Type: BLOOD SPECIMEN Ordering Facility: [facility] Address: [address] [place] [address] Performed By: #### 2 4321-2 #### [facility] CLIA [id number] [address] [place] [address] [place] Creatinine and Glomerular filtration rate.predicted panel (S/P/Bld) 73 mL/min/1.73m??? Normal >=60 [facility] Comment on above: Order Comment: Shahrzad dumont Type: BLOOD SPECIMEN Ordering Facility: [facility] Address: [address] [place] [address] Result Comment: Leah mated Glomerular Filtration Rate [...] GFR. Performed By: #### 2 4321-2 #### [facility] CLIA [id number] [address] [place] [address] [place] Glucose [Mass/Vol] 129 mg/dL High 74-99 [facility] Comment on above: Order Comment: Shahrzad dumont Type: BLOOD SPECIMEN Ordering Facility: [facility] Address: [address] [place] [address] Result Comment: The [place] Diabetes Association (ADA) provides guidance for cutoff [...] Standards of Medical Care in Diabetes 2016, [place] [employer]. Diabetes Care. 2016.39(Suppl 1). Performed By: #### 2 4321-2 #### [facility] CLIA [id number] [address] [place] [address] [place] Potassium [Moles/Vol] 4.3 mmol/L Normal 3.7-5.1 [facility] Comment on above: Order Comment: Speci men Type: BLOOD SPECIMEN Ordering Facility: [facility] Address: [address] [place] [address] Performed By: #### 2 4321-2 #### [facility] CLIA [id number] [address] [place] [address] [place] Sodium [Moles/Vol] 140 mmol/L Normal 136-144 [facility] Comment on above: Order Comment: Shahrzad dumont Type: BLOOD SPECIMEN Ordering Facility: [facility] Address: [address] [place] [address] Performed By: #### 2 4321-2 #### [facility] CLIA [id number] [address] [place] [address] [place] Urea nitrogen [Mass/Vol] 16 mg/dL Normal 9-24 [facility] Comment on above: Order Comment: Toneyi tim Type: BLOOD SPECIMEN Ordering Facility: [facility] Address: [address] [place] [address] Performed By: #### 2 4321-2 #### [facility] CLIA [id number] [address] [place] [address] [place] CBC panel Auto (Bld)on 12-10 Erythrocyte distribution width (RBC) [Ratio] 12.6 % Normal 11.5-15.0 [facility] Comment on above: Order Comment: Toneyi men Type: BLOOD SPECIMEN Ordering Facility: [facility] Address: [address] [place] [address] Performed By: #### 5 8410-2 #### [facility] CLIA [id number] [address] [place] [address] [place] Hematocrit (Bld) [Volume fraction] 32.7 % Low 39.0-51.0 [facility] Comment on above: Order Comment: Speci men Type: BLOOD SPECIMEN Ordering Facility: [facility] Address: [address] [place] [address] Performed By: #### 5 8410-2 #### [facility] CLIA [id number] [address] [place] [address] [place] Hemoglobin (Bld) [Mass/Vol] 10.9 g/dL Low 13.0-17.0 [facility] Comment on above: Order Comment: Speci men Type: BLOOD SPECIMEN Ordering Facility: [facility] Address: [address] [place] [address] Performed By: #### 5 8410-2 #### [facility] CLIA [id number] [address] [place] [address] [place] MCH (RBC) [Entitic mass] 31.5 pg Normal 26.0-34.0 [facility] Comment on above: Order Comment: Speci men Type: BLOOD SPECIMEN Ordering Facility: [facility] Address: [address] [place] [address] Performed By: #### 5 8410-2 #### [facility] CLIA [id number] [address] [place] [address] [place] MCHC (RBC) [Mass/Vol] 33.3 g/dL Normal 30.5-36.0 [facility] Comment on above: Order Comment: Speci men Type: BLOOD SPECIMEN Ordering Facility: [facility] Address: [address] [place] [address] Performed By: #### 5 8410-2 #### [facility] CLIA [id number] [address] [place] [address] [place] MCV (RBC) [Entitic vol] 94.5 fL Normal 80.0-100.0 [facility] Comment on above: Order Comment: Speci men Type: BLOOD SPECIMEN Ordering Facility: [facility] Address: [address] [place] [address] Performed By: #### 5 8410-2 #### [facility] CLIA [id number] [address] [place], [place] [address] [place] Nucleated RBC (Bld) [#/Vol] 10*3/uL Normal <0.01 [facility] Comment on above: Order Comment: Speci men Type: BLOOD SPECIMEN Ordering Facility: [facility] Address: [address] [place] [address] Performed By: #### 5 8410-2 #### [facility] CLIA [id number] [address] [place] [address] [place] Platelet mean volume (Bld) [Entitic vol] 9.6 fL Normal 9.0-12.7 [facility] Comment on above: Order Comment: Speci men Type: BLOOD SPECIMEN Ordering Facility: [facility] Address: [address] [place] [address] Performed By: #### 5 8410-2 #### [facility] CLIA [id number] [address] [place] [address] [place] Platelets (Bld) [#/Vol] 157 10*3/uL Normal 150-400 [facility] Comment on above: Order Comment: Speci men Type: BLOOD SPECIMEN Ordering Facility: [facility] Address: [address] [place] [address] Performed By: #### 5 8410-2 #### [facility] CLIA [id number] [address] [place] [address] [place] RBC (Bld) [#/Vol] 3.46 10*6/uL Low 4.20-6.00 [facility] Comment on above: Order Comment: Speci men Type: BLOOD SPECIMEN Ordering Facility: [facility] Address: [address] [place] [address] Performed By: #### 5 8410-2 #### [facility] CLIA [id number] [address] [place] [address] [place] WBC (Bld) [#/Vol] 8.16 10*3/uL Normal 3.70-11.00 [facility] Comment on above: Order Comment: Speci men Type: BLOOD SPECIMEN Ordering Facility: [facility] Address: [address] [place] [address] Performed By: #### 5 8410-2 #### [facility] CLIA [id number] [address] [place], [place] [address] [facility] THERAPY NTon 12-10-2022 THERAPY NT HNO ID: [id number] Author: Odilon Madrid PT Service: Physical Therapy Author Type: Physical Therapist Type: Therapy (PT/OT/Speech/Resp) Filed: 12/10/2022 11:20 AM Note Text: PHYSICAL THERAPY MISSED VISIT SERVICE DATE: 12/10/2022 SERVICE TIME: 1109 to 1111 ROOM: [place] [address] Patient not seen due to Refused Treatment. Pt reported pain levels are too high to attempt therapy. Will f/u as schedule allows and pain improves. SIGNATURE: Odilon Madrid PT PATIENT NAME: Sukhdeep Simental DATE: December 10, 2022 TIME: 11:20 AM [facility] ALLIED HEALTHon 12-09-2022 ALLIED HEALTH HNO ID: [id number] Author: Akila Huitron RT(R) Service: Radiology Author [...] RT Jose(R) December 09, 2022 2:01 PM [facility] Basic metabolic 2000 panelon 12-09-2022 Anion gap [Moles/Vol] 6 mmol/L Low -18 [facility] Comment on above: Order Comment: Speci men Type: BLOOD SPECIMEN Ordering Facility: [facility] Address: [address] [place] [address] Performed By: #### 2 4321-2 #### [facility] CLIA [id number] [address] [place], [place] [address] [place] Calcium [Mass/Vol] 8.5 mg/dL Normal 8.5-10.2 [facility] Comment on above: Order Comment: Speci men Type: BLOOD SPECIMEN Ordering Facility: [facility] Address: [address] [place] [address] Performed By: #### 2 4321-2 #### [facility] CLIA [id number] [address] [place] [address] [place] Chloride [Moles/Vol] 106 mmol/L High 97-105 [facility] Comment on above: Order Comment: Speci men Type: BLOOD SPECIMEN Ordering Facility: [facility] Address: [address] [place] [address] Performed By: #### 2 4321-2 #### [facility] CLIA [id number] [address] [place] [address] [place] CO2 [Moles/Vol] 30 mmol/L Normal 22-30 [facility] Comment on above: Order Comment: Speci men Type: BLOOD SPECIMEN Ordering Facility: [facility] Address: [address] [place] [address] Performed By: #### 2 4321-2 #### [facility] CLIA [id number] [address] [place] [address] [place] Creatinine [Mass/Vol] 1.34 mg/dL High 0.73-1.22 [facility] Comment on above: Order Comment: Speci men Type: BLOOD SPECIMEN Ordering Facility: [facility] Address: [address] [place] [address] Performed By: #### 2 4321-2 #### [facility] CLIA [id number] [address] [place] [address] [place] Creatinine and Glomerular filtration rate.predicted panel (S/P/Bld) 61 mL/min/1.73m??? Normal >=60 [facility] Comment on above: Order Comment: Shahrzad dumont Type: BLOOD SPECIMEN Ordering Facility: [facility] Address: [address] [place] [address] Result Comment: Leah mated Glomerular Filtration Rate [...] GFR. Performed By: #### 2 4321-2 #### [facility] CLIA [id number] [address] [place] [address] [place] Glucose [Mass/Vol] 105 mg/dL High 74-99 [facility] Comment on above: Order Comment: Shahrzad dumont Type: BLOOD SPECIMEN Ordering Facility: [facility] Address: [address] [place] [address] Result Comment: The [place] Diabetes Association (ADA) provides guidance for cutoff [...] Standards of Medical Care in Diabetes 2016, [place] [employer]. Diabetes Care. 2016.39(Suppl 1). Performed By: #### 2 4321-2 #### [facility] CLIA [id number] [address] [place] [address] [place] Potassium [Moles/Vol] 3.9 mmol/L Normal 3.7-5.1 [facility] Comment on above: Order Comment: Shahrzad dumont Type: BLOOD SPECIMEN Ordering Facility: [facility] Address: [address] [place] [address] Performed By: #### 2 4321-2 #### [facility] CLIA [id number] [address] [place] [address] [place] Sodium [Moles/Vol] 142 mmol/L Normal 136-144 [facility] Comment on above: Order Comment: Speci men Type: BLOOD SPECIMEN Ordering Facility: [facility] Address: [address] [place] [address] Performed By: #### 2 4321-2 #### [facility] [place] [id number] [address] [place] [address] [place] Urea nitrogen [Mass/Vol] 18 mg/dL Normal 9-24 [facility] Comment on above: Order Comment: Speci men Type: BLOOD SPECIMEN Ordering Facility: [facility] Address: [address] [place] [address] Performed By: #### 2 4321-2 #### [facility] [place] [id number] [address] [place] [address] [place] CBC panel Auto (Bld)on 12-09 Erythrocyte distribution width (RBC) [Ratio] 12.7 % Normal 11.5-15.0 [facility] Comment on above: Order Comment: Speci men Type: BLOOD SPECIMEN Ordering Facility: [facility] Address: [address] [place] [address] Performed By: #### 5 8410-2 #### [facility] [place] [id number] [address] [place] [address] [place] Hematocrit (Bld) [Volume fraction] 34.1 % Low 39.0-51.0 [facility] Comment on above: Order Comment: Speci men Type: BLOOD SPECIMEN Ordering Facility: [facility] Address: [address] [place] [address] Performed By: #### 5 8410-2 #### [facility] IA [id number] [address] [place] [address] [place] Hemoglobin (Bld) [Mass/Vol] 11.6 g/dL Low 13.0-17.0 [facility] Comment on above: Order Comment: Speci men Type: BLOOD SPECIMEN Ordering Facility: [facility] Address: [address] [place] [address] Performed By: #### 5 8410-2 #### [facility] CLIA [id number] [address] [place] [address] [place] MCH (RBC) [Entitic mass] 32.3 pg Normal 26.0-34.0 [facility] Comment on above: Order Comment: Speci men Type: BLOOD SPECIMEN Ordering Facility: [facility] Address: [address] [place] [address] Performed By: #### 5 8410-2 #### [facility] IA [id number] [address] [place] [address] [place] MCHC (RBC) [Mass/Vol] 34.0 g/dL Normal 30.5-36.0 [facility] Comment on above: Order Comment: Speci men Type: BLOOD SPECIMEN Ordering Facility: [facility] Address: [address] [place] [address] Performed By: #### 5 8410-2 #### [facility] [place] [id number] [address] [place] [address] [place] MCV (RBC) [Entitic vol] 95.0 fL Normal 80.0-100.0 [facility] Comment on above: Order Comment: Speci men Type: BLOOD SPECIMEN Ordering Facility: [facility] Address: [address] [place] [address] Performed By: #### 5 8410-2 #### [facility] [place] [id number] [address] [place] [address] [place] Nucleated RBC (Bld) [#/Vol] 10*3/uL Normal <0.01 [facility] Comment on above: Order Comment: Speci men Type: BLOOD SPECIMEN Ordering Facility: [facility] Address: [address] [place] [address] Performed By: #### 5 8410-2 #### [facility] [place] [id number] [address] [place] [address] [place] Platelet mean volume (Bld) [Entitic vol] 9.6 fL Normal 9.0-12.7 [facility] Comment on above: Order Comment: Speci men Type: BLOOD SPECIMEN Ordering Facility: [facility] Address: [address] [place] [address] Performed By: #### 5 8410-2 #### [facility] CLIA [id number] [address] [place], [place] [address] [place] Platelets (Bld) [#/Vol] 159 10*3/uL Normal 150-400 [facility] Comment on above: Order Comment: Speci men Type: BLOOD SPECIMEN Ordering Facility: [facility] Address: [address] [place] [address] Performed By: #### 5 8410-2 #### [facility] CLIA [id number] [address] [place], [place] [address] [place] RBC (Bld) [#/Vol] 3.59 10*6/uL Low 4.20-6.00 [facility] Comment on above: Order Comment: Speci men Type: BLOOD SPECIMEN Ordering Facility: [facility] Address: [address] [place] [address] Performed By: #### 5 8410-2 #### [facility] CLIA [id number] [address] [place], [place] [address] [place] WBC (Bld) [#/Vol] 8.72 10*3/uL Normal 3.70-11.00 [facility] Comment on above: Order Comment: Speci men Type: BLOOD SPECIMEN Ordering Facility: [facility] Address: [address] [place] [address] Performed By: #### 5 8410-2 #### [facility] [place] [id number] [address] [place], [place] [address] [place] NURSING PROGon 12-09-2022 NURSING PROG HNO ID: [id number] Author: Abdias Pemberton RN Service: Nursing Author Type: Registered Nurse Type: Nursing Progress Note Filed: 12/09/2022 7:21 PM Note Text: 12/09/2022 0826: hydromorphone DIRECTOR OF DISTRICT OFFICE rate varied. Patient rating pain 8/10 at this time stating oh, its much better than yesterday . 0931: Patient working with PT at this time 1035: Patient resting/sleeping comfortably in bed at this time. 1200: fentaNYL DIRECTOR OF DISTRICT OFFICE ordered. 1345: Patient ambulating in the hallway with nursing staff and . 1402: Patient at radiology for post-op XR 1406: Hydromorphone DIRECTOR OF DISTRICT OFFICE discontinued. While discontinuing the hydromorphone DIRECTOR OF DISTRICT OFFICE, patient made several comments about unused hydromorphone, I can take that medication off your hands. Patient educated that the medication will be properly wasted per protocol. 1407: fentaNYL DIRECTOR OF DISTRICT OFFICE started and Hydromorphone properly wasted per protocol. [...] Can't you increase my setting on the DIRECTOR OF DISTRICT OFFICE because I had better pain relief with the Dilaudid pump because I could press the button more frequent? Can you increase the pump settings? [facility] THERAPY NTon 12-09-2022 THERAPY NT HNO ID: [id number] Author: Abdias Crooks OT/L Service: Occupational Therapy Author Type: Occupational Therapist Type: Therapy (PT/OT/Speech/Resp) Filed: 12/09/2022 3:30 PM Note Text: Occupational Therapy Evaluation SERVICE DATE: 12/09/2022 SERVICE TIME: 1438 to 1502 ROOM: [address]- Total Joint Replacement Discharge Readiness: Cleared [...] slower than expec (more content not included)... [facility] THERAPY NT HNO ID: [id number] Author: Hannah Mota PT, DPT Service: Physical Therapy Author Type: Physical Therapist Type: Therapy (PT/OT/Speech/Resp) Filed: 12/09/2022 10:06 AM Note Text: Physical Therapy Treatment SERVICE DATE: 12/09/2022 SERVICE TIME: 930 to 954 ROOM: [id number]- Total Joint Replacement Discharge Readiness: Cleared from Physical Therapy Recommended Discharge Disposition: Home Anticipated Discharge Needs: Physical Assist at Home Physical Assist at Home for: Cleaning, Laundry, Meals, Stairs, Safety Recommended Discharge Equipment: No equipment needs anticipated PT 6 Clicks Score: 24 Pt agreeable to participate. Reports slight improvement in pain compared to yesterday but relies highly on DIRECTOR OF DISTRICT OFFICE. Pt able to ambulate around unit with [...] Difficulty walking-musculoskeleta l Interventions Provided: Therapeutic Activity (68592), Gait Training (83573) Therapeutic Activity (89509) Treatment Minutes: 10 $ Therapeutic Activity (37766) Billed Units: 1 unit Gait Training (08694) Treatment Minutes: 14 $ Gait Training (96804) Billed Units: 1 unit Training AND Education [...] for this therapy (more content not included)... [facility] XR LUMBAR 2V AP/LATon 2022 XR [...] IMPRESSION: Postoperative and degenerative changes as described. Sliver Cutter: PSCB Transcribe Date/Time: Dec 09 2022 3:39P Dictated by : DONNY WOO DO This examination was interpreted and the report reviewed and electronically signed by: DONNY WOO DO on Dec 09 2022 3:42PM EST [id number] Normal [facility] Basic metabolic 2000 panelon 12-08-2022 Anion gap [Moles/Vol] 7 mmol/L Low 9-18 [facility] Comment on above: Order Comment: Speci men Type: BLOOD SPECIMEN Ordering Facility: [facility] Address: [address] [place] [address] Performed By: #### 2 4321-2 #### [facility] CLIA [id number] [address] [place] [address] [place] Calcium [Mass/Vol] 8.2 mg/dL Low 8.5-10.2 [facility] Comment on above: Order Comment: Speci men Type: BLOOD SPECIMEN Ordering Facility: [facility] Address: [address] [place] [address] Performed By: #### 2 4321-2 #### [facility] CLIA [id number] [address] [place] [address] [place] Chloride [Moles/Vol] 106 mmol/L High 97-105 [facility] Comment on above: Order Comment: Speci men Type: BLOOD SPECIMEN Ordering Facility: [facility] Address: [address] [place] [address] Performed By: #### 2 4321-2 #### [facility] CLIA [id number] [address] [place] [address] [place] CO2 [Moles/Vol] 28 mmol/L Normal 22-30 [facility] Comment on above: Order Comment: Speci men Type: BLOOD SPECIMEN Ordering Facility: [facility] Address: [address] [place] [address] Performed By: #### 2 4321-2 #### [facility] CLIA [id number] [address] [place] [address] [place] Creatinine [Mass/Vol] 1.35 mg/dL High 0.73-1.22 [facility] Comment on above: Order Comment: Shahrzad dumont Type: BLOOD SPECIMEN Ordering Facility: [facility] Address: [address] [place] [address] Performed By: #### 2 4321-2 #### [facility] IA [id number] [address] [place], [place] [address] [place] Creatinine and Glomerular filtration rate.predicted panel (S/P/Bld) 60 mL/min/1.73m??? Normal >=60 [facility] Comment on above: Order Comment: Shahrzad dumont Type: BLOOD SPECIMEN Ordering Facility: [facility] Address: [address] [place] [address] Result Comment: Leah mated Glomerular Filtration Rate [...] GFR. Performed By: #### 2 4321-2 #### [facility] IA [id number] [address] [place], [place] [address] [place] Glucose [Mass/Vol] 139 mg/dL High 74-99 [facility] Comment on above: Order Comment: Shahrzad dumont Type: BLOOD SPECIMEN Ordering Facility: [facility] Address: [address] [place] [address] Result Comment: The [place] Diabetes Association (ADA) provides guidance for cutoff [...] Standards of Medical Care in Diabetes 2016, [place] [employer]. Diabetes Care. 2016.39(Suppl 1). Performed By: #### 2 4321-2 #### [facility] CLIA [id number] [address] [place] [address] [place] Potassium [Moles/Vol] 3.7 mmol/L Normal 3.7-5.1 [facility] Comment on above: Order Comment: Speci men Type: BLOOD SPECIMEN Ordering Facility: [facility] Address: [address] [place] [address] Performed By: #### 2 4321-2 #### [facility] CLIA [id number] [address] [place], [place] [address] [place] Sodium [Moles/Vol] 141 mmol/L Normal 136-144 [facility] Comment on above: Order Comment: Shahrzad dumont Type: BLOOD SPECIMEN Ordering Facility: [facility] Address: [address] [place] [address] Performed By: #### 2 4321-2 #### [facility] CLIA [id number] [address] [place] [address] [place] Urea nitrogen [Mass/Vol] 23 mg/dL Normal 9-24 [facility] Comment on above: Order Comment: Shahrzad dumont Type: BLOOD SPECIMEN Ordering Facility: [facility] Address: [address] [place] [address] Performed By: #### 2 4321-2 #### [facility] CLIA [id number] [address] [place], [place] [address] [place] CASE MGT INIT ASSESon 2022 CASE MGT INIT ASSES HNO ID: [id number] Author: Gloria Toro RN Service: ? Author Type: Registered Nurse Type: Care Mgt Initial Assessment Filed: 12/08/2022 8:48 AM Note Text: CARE MANAGEMENT: ASSESSMENT AND DISCHARGE PLAN SERVICE DATE: December 08, 2022 SERVICE TIME: 8:46 am PCP: Blayne Isabel MD Primary Contact: Extended Emergency Contact Information Primary Emergency Contact: Darryl Simental Address: [address] [place] [address] [place] [address] [place] Mobile Relation: Spouse [...] to go home, General wellness, Less pain [place] Explained: [place] of [place] Given: No Reason Not Given: [...] further skilled PT / OT needed at OR. CM Department will continue to follow until OR. SIGNATURE: Gloria Toro RN PATIENT NAME: Sukhdeep Simental DATE: December 08, 2022 TIME: 8:46 AM CONTACT #: [phone] Normal [facility] CBC panel Auto (Bld)on 12-08 Erythrocyte distribution width (RBC) [Ratio] 12.8 % Normal 11.5-15.0 [facility] Comment on above: Order Comment: Speci men Type: BLOOD SPECIMEN Ordering Facility: [facility] Address: [address] [place] [address] Performed By: #### 5 8410-2 #### [facility] CLIA [id number] [address] Hematocrit (Bld) [Volume fraction] 34.8 % Low 39.0-51.0 [facility] Comment on above: Order Comment: Speci men Type: BLOOD SPECIMEN Ordering Facility: [facility] Address: [address] [place] [address] Performed By: #### 5 8410-2 #### [facility] IA [id number] [address] [place] [address] [place] Hemoglobin (Bld) [Mass/Vol] 11.7 g/dL Low 13.0-17.0 [facility] Comment on above: Order Comment: Speci men Type: BLOOD SPECIMEN Ordering Facility: [facility] Address: [address] [place] [address] Performed By: #### 5 8410-2 #### [facility] IA [id number] [address] [place] [address] [place] MCH (RBC) [Entitic mass] 31.8 pg Normal 26.0-34.0 [facility] Comment on above: Order Comment: Speci men Type: BLOOD SPECIMEN Ordering Facility: [facility] Address: [address] [place] [address] Performed By: #### 5 8410-2 #### [facility] IA [id number] [address] [place] [address] [place] MCHC (RBC) [Mass/Vol] 33.6 g/dL Normal 30.5-36.0 [facility] Comment on above: Order Comment: Speci men Type: BLOOD SPECIMEN Ordering Facility: [facility] Address: [address] [place] [address] Performed By: #### 5 8410-2 #### [facility] IA [id number] [address] [place] [address] [place] MCV (RBC) [Entitic vol] 94.6 fL Normal 80.0-100.0 [facility] Comment on above: Order Comment: Speci men Type: BLOOD SPECIMEN Ordering Facility: [facility] Address: [address] [place] [address] Performed By: #### 5 8410-2 #### [facility] CLIA [id number] [address] [place] [address] [place] Nucleated RBC (Bld) [#/Vol] 10*3/uL Normal <0.01 [facility] Comment on above: Order Comment: Speci men Type: BLOOD SPECIMEN Ordering Facility: [facility] Address: [address] [place] [address] Performed By: #### 5 8410-2 #### [facility] CLIA [id number] [address] [place] [address] [place] Platelet mean volume (Bld) [Entitic vol] 9.4 fL Normal 9.0-12.7 [facility] Comment on above: Order Comment: Speci men Type: BLOOD SPECIMEN Ordering Facility: [facility] Address: [address] [place] [address] Performed By: #### 5 8410-2 #### [facility] CLIA [id number] [address] [place] [address] [place] Platelets (Bld) [#/Vol] 162 10*3/uL Normal 150-400 [facility] Comment on above: Order Comment: Speci men Type: BLOOD SPECIMEN Ordering Facility: [facility] Address: [address] [place] [address] Performed By: #### 5 8410-2 #### [facility] IA [id number] [address] [place] [address] [place] RBC (Bld) [#/Vol] 3.68 10*6/uL Low 4.20-6.00 [facility] Comment on above: Order Comment: Speci men Type: BLOOD SPECIMEN Ordering Facility: [facility] Address: [address] [place] [address] Performed By: #### 5 8410-2 #### [facility] CLIA [id number] [address] [place] [address] [place] WBC (Bld) [#/Vol] 7.95 10*3/uL Normal 3.70-11.00 [facility] Comment on above: Order Comment: Speci men Type: BLOOD SPECIMEN Ordering Facility: [facility] Address: [address] [place] [address] Performed By: #### 5 8410-2 #### [facility] CLIA [id number] [address] [place] [address] CONSULTon 12-08-2022 CONSULT HNO ID: [id number] Author: Lulu Oviedo MD Service: General Internal [...] Labs 12/08 (more content not included)... Normal [facility] NURSING PROGon 12-08-2022 NURSING PROG HNO ID: [id number] Author: Abdias Pemberton RN Service: Nursing Author [...] notified of the patient's increased pain after DIRECTOR OF DISTRICT OFFICE was DC'ed earlier and transitioned to PO medications. Hydromorphone DIRECTOR OF DISTRICT OFFICE reordered per Dr. Mathew. 172: Hydromorphone DIRECTOR OF DISTRICT OFFICE restarted. 1735: Patient assisted by nursing staff to bed and states that his pain has decreased. Patient resting comfortably in bed at this time. 1900: Patient resting comfortably in bed at this time. [facility] THERAPY NT 12-08-2022 THERAPY NT HNO ID: [id number] Author: Taylor Montoya OTR/Kelly Service: Occupational Therapy Author Type: Occupational Therapist Type: Therapy (PT/OT/Speech/Resp) Filed: 12/08/2022 12:35 PM Note Text: OCCUPATIONAL THERAPY MISSED VISIT SERVICE DATE: 12/08/2022 SERVICE TIME: 1233 to 1233 ROOM: [place] [address] Patient not seen due to Refused Treatment. Patient having a significant amount of pain. Offered patient option of working with OT tomorrow. Pt would prefer OT evaluation tomorrow. SIGNATURE: URSULA lGynn/Kelly PATIENT NAME: Sukhdeep Simental DATE: December 08, 2022 TIME: 12:34 PM [facility] THERAPY NT HNO ID: [id number] Author: Jean-Pierre Lutz, PT, DPT Service: Physical Therapy Author Type: Physical Therapist Type: Therapy (PT/OT/Speech/Resp) Filed: 12/08/2022 8:44 AM Note Text: Physical Therapy Evaluation SERVICE DATE: 12/08/2022 SERVICE TIME: 08 to 0831 ROOM: [place] [address] Cleared from Physical Therapy Recommended Discharge Disposition: [...] Weakness (generalized) Interventions Provided: Evaluation, Gait Training (28841) $ Evaluation-Low (31107) Billed Units: 1 unit Gait Training (08612) Treatment Minutes: 8 $ Gait Training (87381) Billed Units: 1 unit Training AND Education [...] DATE: December 08, 2022 TIME: 8:44 AM [facility] ANES POSTPROC EVALon 023 ANES POSTPROC EVAL HNO ID: [id number] Author: Ankit Orlando MD Service: Anesthesiology Author [...] December 07, 2022 TIME: 3:37 PM CSN: [id number] [facility] ANES PRE-OPon 12-07-2022 ANES PRE-OP HNO ID: [id number] Author: Nasim Pruett I, MD Service: Anesthesiology [...] December 07, 2022 TIME: 7:01 AM CSN: [id number] [facility] BRIEF OP NOTon 12-07-2022 BRIEF OP NOT HNO ID: [id number] Author: Thomas Mathew MD Service: Neurosurgery Author Type: Physician Type: Brief Op Note Filed: 12/07/2022 12:49 PM Note Text: BRIEF OPERATIVE / PROCEDURE NOTE LOG ID: [id number] SURGERY/PROCEDURE DATE: 12/07/2022 INCISION/PROCEDURE START TIME: 8:09 AM INCISION CLOSE/PROCEDURE END TIME: 12:34 PM SURGEON(S)/PROCEDURALI ST(S) AND PRESALES ENGINEER(S): Surgeon(s) and Role: * Thomas Mathew MD [...] DATE: December 07, 2022 TIME: 12:31 PM [facility] NURSING PROGon 12-07-2022 NURSING PROG HNO ID: [id number] Author: Livia Calix RN Service: ? Author Type: Registered Nurse Type: Nursing Progress Note Filed: 12/07/2022 2:48 PM Note Text: Transfer Note: PATIENT NAME: Sukhdeep Simental Patient Location: [address]/[facility]- 02 Room: [place] [address] Patient transferred into room/unit [facility] in stable condition. Patient educated on use of call light, fall precautions, and incentive spirometer. No futher actions taken at this time. Will continue to monitor and check with patient. [facility] OPERATIVE NOon 12-07-2022 OPERATIVE NO HNO ID: [id number] Author: Thomas Mathew MD Service: Neurosurgery Author Type: Physician Type: Operative Report Filed: 12/07/2022 3:54 PM Note Text: OPERATIVE/PROCEDURE REPORT LOG ID: [id number] SURGERY/PROCEDURE DATE: 12/07/2022 INCISION/PROCEDURE START TIME: 8:09 AM INCISION CLOSE/PROCEDURE END TIME: 12:34 PM SURGEON(S)/PROCEDURALI ST(S) AND PRESALES ENGINEER(S): Surgeon(s) and Role: * Thomas Mathew MD [...] and sized at a 10 mm. The [employer] system was the instrumentation system used. Local [...] drill was used to make a small mapping pilot hole. The gear shift along with [...] Implant Name Type Inv. Item Serial No. Business Lawyer Lot No. LRB No. Used Action VITOSS [id number] BIOACTIVE BONE GRAFT SUBSTITUTE 5.0CUB CM Implant [place] [id number] N/A 1 Implanted CAGE TRITANIUM 6D [id number] SPINAL STERILE LATEX FREE LUMBAR POSTERIOR - [id number] Implant CAGE TRITANIUM 6D [id number] SPINAL STERILE LATEX FREE LUMBAR POSTERIOR [place] SPINE T9H8 N/A 1 Implanted CAGE TRITANIUM 6D [id number] SPINAL STERILE LATEX FREE LUMBAR POSTERIOR - [id number] Implant CAGE TRITANIUM 6D [id number] (more content not included)... [facility] XR LUMBAR 2V AP/LATon 2022 XR [...] examination for surgical planning and documentation. . Sliver Cutter: PSCJohn Transcribe Date/Time: Dec 07 2022 3:13P Dictated by : DONNY WOO DO This examination was interpreted and the report reviewed and electronically signed by: DONNY WOO DO on Dec 07 2022 3:15PM EST [id number] [facility] XR LUMBAR 2V AP/LAT * * [...] Intraoperative examination for surgical planning and documentation. Sliver Cutter: COURTNEY Transcribe Date/Time: Dec 07 2022 2:43P Dictated by : DONNY WOO DO This examination was interpreted and the report reviewed and electronically signed by: DONNY WOO DO on Dec 07 2022 2:46PM EST [id number] [facility] XR LUMBAR 2V AP/LAT * * [...] examination for surgical planning and documentation. . Sliver Cutter: PSCB Transcribe Date/Time: Dec 07 2022 2:37P Dictated by : DONNY WOO DO This examination was interpreted and the report reviewed and electronically signed by: DONNY WOO DO on Dec 07 2022 2:40PM EST [id number] [facility] 11-29-2022 [facility] Telephone (NIQ) SUKHDEEP SIMENTAL ([id number]) 1965 M Date Time Provider Department 11/29/22 THOMAS MATHEW NI During your visit today, we recorded the following information about you: Moriah Ferguson 11/29/2022 9:50 AM Signed Patient called regarding a C/9 being filed for his Dec 07 surgery. He spoke to his [facility] contact and they said nothing has been filed yet. Please update patient. Juan Pablo Nova RN 11/29/2022 10:27 AM Signed C9 sent to provider for signature. Awaiting signature. Juan Pablo Nova RN 11/29/2022 12:20 PM Signed Signed C9 sent to [facility] and [facility]. Faxed verifications received. Kathe Lezama 12/05/2022 11:01 AM Signed Patient calling asking for an update on his C9 and surgery approval. He would like to know if nurse can reach out to [facility] for an update and let him know. Juan Pablo Nova RN 12/05/2022 11:43 AM Signed Called Sunita and discussed patient's upcoming surgery. Per Sunita she did already explain to the patient that the information was submitted to the [employer] for review and does take up to 5 business days for a decision. Juan Pablo Nova RN 12/05/2022 1:16 PM Signed Spoke with patient. Informed case is still on for Saturday and that I spoke with Sunita. Patient appreciative of call. Ekaterina Rondon 12/06/2022 11:34 AM Addendum Sunita called from [facility], regarding patient surgery tomorrow. Surgery has been approved based on what it was shown on the medical record. Sunita wanted a called back # [phone] Ekaterina Rondon 12/06/2022 11:35 AM Signed [facility] Scan in [...] Date Reviewed: 11/21/2022 Reviewed by: Maite Galloway APRN.FLYING TEACHER - Fully Assessed Reason for Visit: Bwc [...] by JUAN PABLO NOVA on 11/29/22 Normal [facility] CBC W Auto Differential pane l (Bld)on 11-21-2022 Basophils (Bld) [#/Vol] 0.04 10*3/uL Normal <0.11 [facility] Comment on above: Order Comment: Speci men Type: BLOOD SPECIMENOrdering Facility: [facility] Address: [address] [address] Performed By: #### 5 7021-8 ####[facility] LABCLIA [id number] [place] [address] [place] Basophils/100 WBC (Bld) 0.8 % Normal [facility] Comment on above: Order Comment: Speci men Type: BLOOD SPECIMENOrdering Facility: [facility] Address: [address] [address] Performed By: #### 5 7021-8 ####[facility] LABCLIA [id number] [place] [address] [place] Differential cell count method Nom (Bld) Auto Normal [facility] Comment on above: Order Comment: Speci men Type: BLOOD SPECIMENOrdering Facility: [facility] Address: [address] [place], [place] [address] Performed By: #### 5 7021-8 ####[facility] LABCLIA [id number] [place] [address] [place] Eosinophils (Bld) [#/Vol] 0.11 10*3/uL Normal <0.46 [facility] Comment on above: Order Comment: Speci men Type: BLOOD SPECIMENOrdering Facility: [facility] Address: [address] [place], [place] [address] Performed By: #### 5 7021-8 ####[facility] LABCLIA [id number] [address] [place] Eosinophils/100 WBC (Bld) 2.1 % Normal [facility] Comment on above: Order Comment: Speci men Type: BLOOD SPECIMENOrdering Facility: [facility] Address: [address] [place], [place] [address] Performed By: #### 5 7021-8 ####[facility] LABCLIA [id number] [place] [address] [place] Erythrocyte distribution width (RBC) [Ratio] 12.4 % Normal 11.5-15.0 [facility] Comment on above: Order Comment: Speci men Type: BLOOD SPECIMENOrdering Facility: [facility] Address: [address] [place], [place] [address] Performed By: #### 5 7021-8 ####[facility] LABCLIA [id number] [place] [address] [place] Hematocrit (Bld) [Volume fraction] 42.9 % Normal 39.0-51.0 [facility] Comment on above: Order Comment: Speci men Type: BLOOD SPECIMENOrdering Facility: [facility] Address: [address] [place], [place] [address] Performed By: #### 5 7021-8 ####[facility] LABCLIA [id number] [place] [address] [place] Hemoglobin (Bld) [Mass/Vol] 14.5 g/dL Normal 13.0-17.0 [facility] Comment on above: Order Comment: Speci men Type: BLOOD SPECIMENOrdering Facility: [facility] Address: [address] [place], [place] [address] Performed By: #### 5 7021-8 ####[facility] LABCLIA [id number] [place] [address] [place] Immature granulocytes (Bld) [#/Vol] 10*3/uL Normal <0.10 [facility] Comment on above: Order Comment: Speci men Type: BLOOD SPECIMENOrdering Facility: [facility] Address: [address] [place], [place] [address] Performed By: #### 5 7021-8 ####[facility] LABCLIA [id number] [place] [address] [place] Immature granulocytes/100 WBC (Bld) 0.4 % Normal [facility] Comment on above: Order Comment: Speci men Type: BLOOD SPECIMENOrdering Facility: [facility] Address: [address] [place], [place] [address] Performed By: #### 5 7021-8 ####[facility] LABCLIA [id number] [place] [address] [place] Lymphocytes (Bld) [#/Vol] 1.45 10*3/uL Normal 1.00-4.00 [facility] Comment on above: Order Comment: Speci men Type: BLOOD SPECIMENOrdering Facility: [facility] Address: [address] [place] [address] Performed By: #### 5 7021-8 ####[facility] LABIA [id number] [address] [place] Lymphocytes/100 WBC (Bld) 27.4 % Normal [facility] Comment on above: Order Comment: Speci men Type: BLOOD SPECIMENOrdering Facility: [facility] Address: [address] [place], [place] [address] Performed By: #### 5 7021-8 ####[facility] LABIA [id number] [place] [address] [place] MCH (RBC) [Entitic mass] 31.7 pg Normal 26.0-34.0 [facility] Comment on above: Order Comment: Speci men Type: BLOOD SPECIMENOrdering Facility: [facility] Address: [address] [place], [place] [address] Performed By: #### 5 7021-8 ####[facility] LABIA [id number] [address] [place] MCHC (RBC) [Mass/Vol] 33.8 g/dL Normal 30.5-36.0 [facility] Comment on above: Order Comment: Speci men Type: BLOOD SPECIMENOrdering Facility: [facility] Address: [address] [place], [place] [address] Performed By: #### 5 7021-8 ####[facility] LABIA [id number] [address] [place] MCV (RBC) [Entitic vol] 93.7 fL Normal 80.0-100.0 [facility] Comment on above: Order Comment: Speci men Type: BLOOD SPECIMENOrdering Facility: [facility] Address: [address] [place], [place] [address] Performed By: #### 5 7021-8 ####[facility] LABIA [id number] [id number] [address] [place] Monocytes (Bld) [#/Vol] 0.49 10*3/uL Normal <0.87 [facility] Comment on above: Order Comment: Speci men Type: BLOOD SPECIMENOrdering Facility: [facility] Address: [address] [place] [address] Performed By: #### 5 7021-8 ####[facility] LABCLIA [id number] [place] [address] [place] Monocytes/100 WBC (Bld) 9.2 % Normal [facility] Comment on above: Order Comment: Speci men Type: BLOOD SPECIMENOrdering Facility: [facility] Address: [address] [place], [place] [address] Performed By: #### 5 7021-8 ####[facility] LABCLIA [id number] [place] [address] [place] Neutrophils (Bld) [#/Vol] 3.19 10*3/uL Normal 1.45-7.50 [facility] Comment on above: Order Comment: Speci men Type: BLOOD SPECIMENOrdering Facility: [facility] Address: [address] [place], [place] [address] Performed By: #### 5 7021-8 ####[facility] LABCLIA [id number] [place] [address] [place] Neutrophils/100 WBC (Bld) 60.1 % Normal [facility] Comment on above: Order Comment: Speci men Type: BLOOD SPECIMENOrdering Facility: [facility] Address: [address] [place], [place] [address] Performed By: #### 5 7021-8 ####[facility] LABCLIA [id number] [place] [address] [place] Nucleated RBC (Bld) [#/Vol] 10*3/uL Normal <0.01 [facility] Comment on above: Order Comment: Speci men Type: BLOOD SPECIMENOrdering Facility: [facility] Address: [address] Performed By: #### 5 7021-8 ####[facility] LABCLIA [id number] [place] [address] [place] Nucleated RBC/100 WBC (Bld) [Ratio] 0.0 /100 WBC Normal [facility] Comment on above: Order Comment: Speci men Type: BLOOD SPECIMENOrdering Facility: [facility] Address: [address] Performed By: #### 5 7021-8 ####[facility] LABIA [id number] [place] [address] [place] Platelet mean volume (Bld) [Entitic vol] 9.4 fL Normal 9.0-12.7 [facility] Comment on above: Order Comment: Speci men Type: BLOOD SPECIMENOrdering Facility: [facility] Address: [address] Performed By: #### 5 7021-8 ####[facility] LABCLIA [id number] [place] [address] [place] Platelets (Bld) [#/Vol] 222 10*3/uL Normal 150-400 [facility] Comment on above: Order Comment: Speci men Type: BLOOD SPECIMENOrdering Facility: [facility] Address: [address] Performed By: #### 5 7021-8 ####[facility] LABCLIA [id number] [place] [address] [place] RBC (Bld) [#/Vol] 4.58 10*6/uL Normal 4.20-6.00 [facility] Comment on above: Order Comment: Speci men Type: BLOOD SPECIMENOrdering Facility: [facility] Address: [address] Performed By: #### 5 7021-8 ####[facility] LABCLIA [id number] [place] [address] [place] WBC (Bld) [#/Vol] 5.30 10*3/uL Normal 3.70-11.00 [facility] Comment on above: Order Comment: Speci men Type: BLOOD SPECIMENOrdering Facility: [facility] Address: [address] [place] [address] Performed By: #### 5 7021-8 ####[facility] LABCLIA [id number] [place] [address] [place] CONFIRM BLOOD TYPEon 023 ABO A Normal [facility] Comment on above: Order Comment: Speci men Type: BLOOD SPECIMENOrdering Facility: [facility] Address: [address] [place] [address] Performed By: #### C ONABO ####[facility] BLOOD BANKCLIA [id number] [place] [address] [place] Rh Nom (Bld) Negative Normal [facility] Comment on above: Order Comment: Speci men Type: BLOOD SPECIMENOrdering Facility: [facility] Address: [address] [place] [address] Performed By: #### C ONABO ####[facility] BLOOD BANKCLIA [id number] [place] [address] [place] Comprehensive metabolic 2000 panelon 11-21-2022 Albumin [Mass/Vol] 4.3 g/dL Normal 3.9-4.9 [facility] Comment on above: Order Comment: Speci men Type: BLOOD SPECIMENOrdering Facility: [facility] Address: [address] [place] [address] Performed By: #### 2 4323-8 ####[facility] LABCLIA [id number] [place] [address] [place] ALP [Catalytic activity/Vol] 68 U/L Normal 38-113 [facility] Comment on above: Order Comment: Speci men Type: BLOOD SPECIMENOrdering Facility: [facility] Address: [address] [address] Performed By: #### 2 4323-8 ####[facility] LABCLIA [id number] [address] [place] [facility] ALT [Catalytic activity/Vol] 16 U/L Normal 10-54 [facility] Comment on above: Order Comment: Speci men Type: BLOOD SPECIMENOrdering Facility: [facility] Address: [address] [address] Performed By: #### 2 4323-8 ####[facility] LABCLIA [id number] [place] [address] [place] Anion gap [Moles/Vol] 10 mmol/L Normal 9-18 [facility] Comment on above: Order Comment: Speci men Type: BLOOD SPECIMENOrdering Facility: [facility] Address: [address] [address] Performed By: #### 2 4323-8 ####[facility] LABCLIA [id number] [address] [place] AST [Catalytic activity/Vol] 21 U/L Normal 14-40 [facility] Comment on above: Order Comment: Speci men Type: BLOOD SPECIMENOrdering Facility: [facility] Address: [address] Performed By: #### 2 4323-8 ####[facility] LABCLIA [id number] [place] [address] [place] Bilirubin [Mass/Vol] 0.5 mg/dL Normal 0.2-1.3 [facility] Comment on above: Order Comment: Speci men Type: BLOOD SPECIMENOrdering Facility: [facility] Address: [address] Performed By: #### 2 4323-8 ####[facility] LABCLIA [id number] [place] [address] [place] Calcium [Mass/Vol] 9.9 mg/dL Normal 8.5-10.2 [facility] Comment on above: Order Comment: Speci men Type: BLOOD SPECIMENOrdering Facility: [facility] Address: [address] [place] [address] Performed By: #### 2 4323-8 ####[facility] LABCLIA [id number] [place] [address] [place] Chloride [Moles/Vol] 106 mmol/L High 97-105 [facility] Comment on above: Order Comment: Speci men Type: BLOOD SPECIMENOrdering Facility: [facility] Address: [address] [place] [address] Performed By: #### 2 4323-8 ####[facility] LABCLIA [id number] [place] [address] [place] CO2 [Moles/Vol] 27 mmol/L Normal 22-30 [facility] Comment on above: Order Comment: Speci men Type: BLOOD SPECIMENOrdering Facility: [facility] Address: [address] [place], [place] [address] Performed By: #### 2 4323-8 ####[facility] LABCLIA [id number] [place] [address] [place] Creatinine [Mass/Vol] 1.22 mg/dL Normal 0.73-1.22 [facility] Comment on above: Order Comment: Speci men Type: BLOOD SPECIMENOrdering Facility: [facility] Address: [address] [place], [place] [address] Performed By: #### 2 4323-8 ####[facility] LABCLIA [id number] [place] [address] [place] Creatinine and Glomerular filtration rate.predicted panel (S/P/Bld) 68 mL/min/1.73m??? Normal >=60 [facility] Comment on above: Order Comment: Shahrzad dumont Type: BLOOD SPECIMENOrdering Facility: [facility] Address: [address] [place] [address] Result Comment: Leah mated Glomerular Filtration Rate [...] Performed By: #### 2 4323-8 ####[facility] LABIA [id number] [place] [address] [place] Glucose [Mass/Vol] 111 mg/dL High 74-99 [facility] Comment on above: Order Comment: Shahrzad dumont Type: BLOOD SPECIMENOrdering Facility: [facility] Address: [address] [address] Result Comment: The [place] Diabetes Association (ADA) provides guidance for cutoff [...] Standards of Medical Care in Diabetes 2016, [place] [employer] Association. Diabetes Care. 2016.39(Suppl 1). Performed By: #### 2 4323-8 ####[facility]PRO[facility] [id number] [place] [address] [place] Potassium [Moles/Vol] 4.2 mmol/L Normal 3.7-5.1 [facility] Comment on above: Order Comment: Shahrzad dumont Type: BLOOD SPECIMENOrdering Facility: [facility] Address: [address] [address] Performed By: #### 2 4323-8 ####[facility] LABCLIA [id number] [place] [address] [place] Protein [Mass/Vol] 7.0 g/dL Normal 6.3-8.0 [facility] Comment on above: Order Comment: Speci men Type: BLOOD SPECIMENOrdering Facility: [facility] Address: [address] [address] Performed By: #### 2 4323-8 ####[facility] LABIA [id number] [place] [address] [place] Sodium [Moles/Vol] 143 mmol/L Normal 136-144 [facility] Comment on above: Order Comment: Speci men Type: BLOOD SPECIMENOrdering Facility: [facility] Address: [address] [address] Performed By: #### 2 4323-8 ####[facility] LABIA [id number] [place] [address] [place] Urea nitrogen [Mass/Vol] 22 mg/dL Normal 9-24 [facility] Comment on above: Order Comment: Speci men Type: BLOOD SPECIMENOrdering Facility: [facility] Address: [address] [place] [address] Performed By: #### 2 4323-8 ####[facility] LABIA [id number] [place] [address] [place] [id number] 11-21-2022 ECG01 Ventricular Rate : 6 5 BPM Atrial Rate : 65 BPM P-R Interval : 180 ms QRS Duration : 98 ms Q-T Interval : 440 ms QTC Calculation(Bazett) : 457 ms Calculated P Renwick : 0 degrees Calculated R Renwick : -10 degrees Calculated T Renwick : 49 degrees NORMAL SINUS RHYTHM NORMAL ECG Confirmed by SHANIA RESTREPO M.D. ([id number]) on 11/22/2022 12:00:34 PM NAME : SUKHDEEP SIMENTAL PID : [id number] : 1965 Gender : Male Race : ORD : Procedure Date : Nov 21 2022 10:59:49 Edit Date : Nov 22 2022 12:00:38 Diagnosis: NORMAL SINUS RHYTHM NORMAL ECG Confirmed by SHANIA RESTREPO M.D. ([id number]) on 11/22/2022 12:00:34 PM Test Reason : SURGERY Location : [facility] : [facility] Overread By : SHANIA RESTREPO M.D. Edited By : SHANIA RESTREPO M.D. 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 Author Type: Nurse Practitioner Type: [...] pain. Skin: (more content not included)... Normal [facility] HbA1c (Bld)on 11-21-2022 Average glucose Estimated from glycated hemoglobin (Bld) [Mass/Vol] 111 mg/dL Normal [facility] Comment on above: Order Comment: Shahrzad dumont Type: BLOOD SPECIMENOrdering Facility: [facility] Address: [address] [address] Result Comment: eAG: (Estimated average glucose) is a calculated value from HgbA1c and is registered representative of the average blood glucose level in the last 2-3 month period. Performed By: #### 5 5454-3 ####[facility] LABCLIA [id number] [facility] [id number] [place] [address] [place] HbA1c (Bld) [Mass fraction] 5.5 % Normal 4.3-5.6 [facility] Comment on above: Order Comment: Shahrzad dumont Type: BLOOD SPECIMENOrdering Facility: [facility] Address: [address] [address] Result Comment: [place] Diabetes Association guidelines indicate that patients with HgbA1c in the range 5.7-6.4% are at increased risk for development of diabetes, and intervention by lifestyle modification may be beneficial. HgbA1c greater or equal to 6.5% is considered diagnostic of diabetes. Performed By: #### 5 5454-3 ####[facility] LABCLIA [id number] [address] TYPE AND SCREEN,30 DAYon ABO A Normal [facility] Comment on above: Order Comment: Speci men Type: BLOOD SPECIMENOrdering Facility: [facility] Address: [address] [place] [address] Performed By: #### T SCR30 ####[facility] BLOOD BANKCLIA [id number] [address] HISTORICAL AB SCR STATUS Negative Normal [facility] Comment on above: Order Comment: Speci men Type: BLOOD SPECIMENOrdering Facility: [facility] Address: [address] [place] [address] Performed By: #### T SCR30 ####[facility] BLOOD BANKCLIA [id number] [address] Rh Nom (Bld) Negative Normal [facility] Comment on above: Order Comment: Speci men Type: BLOOD SPECIMENOrdering Facility: [facility] Address: [address] [place] [address] Performed By: #### T SCR30 ####[facility] BLOOD BANKIA [id number] [address] ABD/PELVIS WO CONon 07-06 CT [...] by: OBIE TSE Date: 2022-07-06 13:19 Normal [facility] PTH INTACTon 06-12-2022 PTH, Intact 38 pg/mL Normal 15-65 [facility] Comment on above: Performed By: #### P T #### [facility] [address] [place] [address] Dr. Hugh Landis FERRITINon 06-11-2022 Ferritin [Mass/Vol] 96.0 ng/mL Normal 26.0-388.0 [facility] Comment on above: Performed By: #### P T #### [facility] [address] [place] [address] Dr. Hugh Landis HEMOGRAM AND PLATELon 2022 Hematocrit (Bld) [Volume fraction] 39.1 % Critically low 42.0-54.0 [facility] Comment on above: Performed By: #### H H #### [facility] [address] [address] [address] Hugh Landis Hemoglobin (Bld) [Mass/Vol] 13.3 g/dL Critically low 14.0-18.0 [facility] Comment on above: Performed By: #### H H #### [facility] [address] [place] [address] Dr. Hugh Landis MCH (RBC) [Entitic mass] 30.5 pg Normal 25.9-34.0 [facility] Comment on above: Performed By: #### H H #### [facility] [address] [address] [address] Hugh Landis MCHC (RBC) [Mass/Vol] 34.0 g/dL Normal 29.9-35.2 [facility] Comment on above: Performed By: #### H H #### [facility] [address] [address] [address] Hugh Landis MCV (RBC) [Entitic vol] 89.7 fL Normal 80.0-94.0 [facility] Comment on above: Performed By: #### H H #### [facility] [address] [place] [address] Dr. Hugh Landis PLT 230 103/ul Normal 150-450 [facility] Comment on above: Performed By: #### H H #### [facility] [address] [place] [address] Dr. Hugh Landis RBC 4.36 106/ul Critically low 4.70-6.10 [facility] Comment on above: Performed By: #### H H #### [facility] [address] [address] [address] Hugh Landis WBC 4.8 103/ul Normal 4.0-11.0 [facility] Comment on above: Performed By: #### H H #### [facility] [address] [place] [address] Dr. Hugh Landis IRON AND TIBCon 06-11-2022 % SATURATION 55.0 % Normal [facility] Comment on above: Performed By: #### P T #### [facility] [address] [place] [address] Dr. Hugh Landis Iron [Mass/Vol] 137.0 ug/dL Normal 65.0-175.0 [facility] Comment on above: Performed By: #### P T #### [facility] [address] [address] [address] Hugh Landis TIBC DIRECT 249.0 ug/dL Critically low 250.0-450.0 [facility] Comment on above: Performed By: #### P T #### [facility] [address] [address] [address] Hugh Landis MAGNESIUMon 06-11-2022 Magnesium [Mass/Vol] 1.9 mg/dL Normal 1.8-2.4 [facility] Comment on above: Performed By: #### P TT #### [facility] [address] [place] [address] Dr. Hugh Landis RENAL FUNCTION PANELon 06-11 Albumin [Mass/Vol] 3.5 g/dL Normal 3.4-5.0 [facility] Comment on above: Performed By: #### P TT #### [facility] [address] [address] [address] Hugh Landis Calcium [Mass/Vol] 9.5 mg/dL Normal 8.5-10.1 [facility] Comment on above: Performed By: #### P TT #### [facility] [address] [place] [address] Dr. Hugh Landis Chloride [Moles/Vol] 107 mmol/L Normal 98-107 [facility] Comment on above: Performed By: #### P TT #### [facility] [address] [address] [address] Hugh Landis CO2 [Moles/Vol] 30.9 mmol/L Normal 21.0-32.0 [facility] Comment on above: Performed By: #### P TT #### [facility] [address] [place] [address] Dr. Hugh Landis Creatinine [Mass/Vol] 1.41 mg/dL Critically high 0.70-1.30 [facility] Comment on above: Performed By: #### P TT #### [facility] [address] [address] [address] Hugh Landis EGFR-AF KYRGYZ >60 Normal >=60 [facility] Comment on above: Performed By: #### P TT #### [facility] [address] [place] [address] Dr. Hugh Landis EGFR-NON AF KYRGYZ 52 mL/min/1.73m2 Critically low >=60 [facility] Comment on above: Performed By: #### P TT #### [facility] [address] [address] [address] Hugh Landis Glucose [Mass/Vol] 118 mg/dL Critically high 74-106 [facility] Comment on above: Performed By: #### P TT #### [facility] [address] [address] [address] Hugh Landis Phosphate [Mass/Vol] 3.0 mg/dL Normal 2.6-4.7 [facility] Comment on above: Performed By: #### P TT #### [facility] [address] [address] [address] Hugh Landis Potassium [Moles/Vol] 3.9 mmol/L Normal 3.5-5.1 [facility] Comment on above: Performed By: #### P TT #### [facility] [address] [address] [address] Hugh Landis Sodium [Moles/Vol] 143 mmol/L Normal 136-145 [facility] Comment on above: Performed By: #### P TT #### [facility] [address] [address] [address] Hugh Landis Urea nitrogen [Mass/Vol] 19.0 mg/dL Critically high 7.0-18.0 [facility] Comment on above: Performed By: #### P TT #### [facility] [address] [address] [address] Hugh Landis UA RANDOM W/MICROSCOPICon BACTERIA NONE SEEN Normal NONE SEEN [facility] Comment on above: Performed By: #### P T #### [facility] [address] [address] [address] Hugh Landis Bilirubin Ql (U) Negative Normal NEGATIVE [facility] Comment on above: Performed By: #### P T #### [facility] [address] [address] [address] Hugh Landis CAST NONE SEEN Normal NONE SEEN [facility] Comment on above: Performed By: #### P T #### [facility] [address] [address] [address] Hugh Landis Clarity (U) CLEAR Normal CLEAR [facility] Comment on above: Performed By: #### P T #### [facility] [address] [address] [address] Hugh Landis Color (U) YELLOW Normal YELLOW [facility] Comment on above: Performed By: #### P T #### [facility] [address] [address] [address] Hugh Landis Crystals LM Nom (Urine sed) NONE SEEN Normal NONE SEEN [facility] Comment on above: Performed By: #### P T #### [facility] [address] [address] [address] Hugh Landis Epithelial cells LM Ql (Urine sed) FEW Abnormal NONE SEEN /RARE [facility] Comment on above: Performed By: #### P T #### [facility] [address] [place] [address] Dr. Hugh Landis Glucose Ql (U) Negative Normal NEGATIVE [facility] Comment on above: Performed By: #### P T #### [facility] [address] [address] [address] Hugh Landis Hemoglobin Ql (U) Negative Normal NEGATIVE [facility] Comment on above: Performed By: #### P T #### [facility] [address] [place] [address] Dr. Hugh Landis Ketones Ql (U) TRACE Abnormal NEGATIVE [facility] Comment on above: Performed By: #### P T #### [facility] [address] [address] [address] Hugh Landis LEUKOCYTES Negative Normal NEGATIVE [facility] Comment on above: Performed By: #### P T #### [facility] [address] [address] [address] Hugh Landis MUCOUS MODERATE Abnormal NONE SEEN [facility] Comment on above: Performed By: #### P T #### [facility] [address] [place] [address] Dr. Hugh Landis Nitrite Ql (U) Negative Normal NEGATIVE [facility] Comment on above: Performed By: #### P T #### [facility] [address] [place] [address] Dr. Hugh Landis pH (U) 5.0 [pH] Normal 5-9 [facility] Comment on above: Performed By: #### P T #### [facility] [address] [place] [address] Dr. Hugh Landis RBC NONE SEEN Abnormal 0-2 [facility] Comment on above: Performed By: #### P T #### [facility] [address] [place] [address] Dr. Hugh Landis SPEC GRAVITY 1.025 Normal 1.005-<=1.02 5 [facility] Comment on above: Performed By: #### P T #### [facility] [address] [place] [address] Dr. Hugh Landis UA PROTEIN TRACE Normal NEGATIVE/ TRACE [facility] Comment on above: Performed By: #### P T #### [facility] [address] [place] [address] Dr. Hugh Landis Urobilinogen Qn (U) 0.2 {Dahiana'U}/dL Normal 0.2 - 1. 0 [facility] Comment on above: Performed By: #### P T #### [facility] [address] [place] [address] Dr. Hugh Landis WBC NONE SEEN Normal NONE SEEN [facility] Comment on above: Performed By: #### P T #### [facility] [address] [place] [address] Dr. Hugh Landis URIC ACID SERUMon 06-11-2022 Urate [Mass/Vol] 7.5 mg/dL Critically high 3.5-7.2 [facility] Comment on above: Performed By: #### P TT #### [facility] [address] [place] [address] Dr. Hugh Landis VITAMIN D 25 OHon 06-11-2022 VIT D 25-OH 35.0 ng/mL Normal [facility] Comment on above: Performed By: #### P T #### [facility] [address] [place] [address] Dr. Hugh Landis VIT D RANGES SEE BELOW Normal [facility] Comment on above: Result Comment: <20 ng/mL Vit D deficient 20 - <30 ng/mL Vit D insufficient 30 - 100 ng/mL Vit D sufficient >100 ng/mL Potential Toxicity Performed By: #### P T #### [facility] [address] [place] [address] Dr. Hugh Landis PROTIMEon 03-15-2022 INR Coag (PPP) [Relative time] 1.11 {INR} Normal [facility] Comment on above: Performed By: #### P T #### [facility] [address] [place] [address] Dr. Hugh Landis INR GUIDELINES SEE BELOW Normal [facility] Comment on above: Result Comment: VIC RED INR: 2.0 - 3.0 CONDITIONS NOT LISTED BELOW 2.5 - 3.5 FOR PROSTHETIC HEART VALVE REPLACEMENT 2.5 - 3.5 RECURRENT THROMBOSIS Performed By: #### P T #### [facility] [address] [place] [address] Dr. Hugh Landis PT Coag (PPP) [Time] 11.7 s Critically high 9.0-11.6 [facility] Comment on above: Performed By: #### P T #### [facility] [address] [place] [address] Dr. Hugh Landis UA (CLEAN/CATCH) REMOTE MORTGAGE UNDERWRITER/MICRO I F IND.on 03-15-2022 Bilirubin Ql (U) Negative Normal NEGATIVE [facility] Comment on above: Performed By: #### P TT #### [facility] [address] [place] [address] Dr. Hugh Landis Clarity (U) CLEAR Normal CLEAR [facility] Comment on above: Performed By: #### P TT #### [facility] [address] [place] [address] Dr. Hugh Landis Color (U) YELLOW Normal YELLOW [facility] Comment on above: Performed By: #### P TT #### [facility] [address] [place] [address] Dr. Hugh Landis Glucose Ql (U) Negative Normal NEGATIVE [facility] Comment on above: Performed By: #### P TT #### [facility] [address] [place] [address] Dr. Hugh Landis Hemoglobin Ql (U) SMALL Abnormal NEGATIVE [facility] Comment on above: Performed By: #### P TT #### [facility] [address] [address] [address] Hugh Landis Ketones Ql (U) Negative Normal NEGATIVE [facility] Comment on above: Performed By: #### P TT #### [facility] [address] [place] [address] Dr. Hugh Landis LEUKOCYTES Negative Normal NEGATIVE [facility] Comment on above: Performed By: #### P TT #### [facility] [address] [place] [address] Dr. Hugh Landis Nitrite Ql (U) Negative Normal NEGATIVE [facility] Comment on above: Performed By: #### P TT #### [facility] [address] [place] [address] Dr. Hugh Landis pH (U) 5.5 [pH] Normal 5-9 [facility] Comment on above: Performed By: #### P TT #### [facility] [address] [place] [address] Dr. Hugh Landis SPEC GRAVITY 1.025 Normal 1.005-<=1.02 5 [facility] Comment on above: Performed By: #### P TT #### [facility] [address] [place] [address] Dr. Hugh Landis UA PROTEIN Negative Normal NEGATIVE/ TRACE [facility] Comment on above: Performed By: #### P TT #### [facility] [address] [place] [address] Dr. Hugh Landis UR MICRO IND INDICATED Normal [facility] Comment on above: Performed By: #### P TT #### [facility] [address] [place] [address] Dr. Hugh Landis Urobilinogen Qn (U) 0.2 {Dahiana'U}/dL Normal 0.2 - 1. 0 [facility] Comment on above: Performed By: #### P TT #### [facility] [address] [place] [address] Dr. Hugh Landis URINE MICROSCOPIC ONLYon BACTERIA TRACE Abnormal NONE SEEN [facility] Comment on above: Performed By: #### P TT #### [facility] [address] [place] [address] Dr. Hugh Landis Bacteria identified Cx Nom (U) NOT INDICATED Normal [facility] Comment on above: Performed By: #### P TT #### [facility] [address] [place] [address] Dr. Hugh Landis CAST NONE SEEN Normal NONE SEEN [facility] Comment on above: Performed By: #### P TT #### [facility] [address] [place] [address] Dr. Hugh Landis Crystals LM Nom (Urine sed) NONE SEEN Normal NONE SEEN [facility] Comment on above: Performed By: #### P TT #### [facility] [address] [place] [address] Dr. Hugh Landis Epithelial cells LM Ql (Urine sed) RARE Normal NONE SEEN /RARE [facility] Comment on above: Performed By: #### P TT #### [facility] [address] [place] [address] Dr. Hugh Landis MUCOUS NONE SEEN Normal NONE SEEN [facility] Comment on above: Performed By: #### P TT #### [facility] [address] [place] [address] Dr. Hugh Landis RBC 0-2 Normal 0-2 [facility] Comment on above: Performed By: #### P TT #### [facility] [address] [place] [address] Dr. Hugh Landis WBC 0-2 Abnormal NONE SEEN [facility] Comment on above: Performed By: #### P TT #### [facility] [address] [place] [address] Dr. Hugh Landis MRSA NARES #1on 03-08-2022 MRSA NARES #1 Culture Observations : NO GROWTH OF MRSA AT 48 HOURS. Normal [facility] Comment on above: Performed By: #### B MP #### [facility] [address] [address] [address] Hugh Landis PROF CHEM 8 (BAS METB)on Anion gap [Moles/Vol] 9.9 mmol/L Normal [facility] Comment on above: Performed By: #### C MP, LIPID, TSH #### [facility] [address] [address] [address] Hugh Landis Calcium [Mass/Vol] 9.4 mg/dL Normal 8.5-10.1 [facility] Comment on above: Performed By: #### C MP, LIPID, TSH #### [facility] [address] [address] [address] Hugh Landis Chloride [Moles/Vol] 103 mmol/L Normal 98-107 [facility] Comment on above: Performed By: #### C MP, LIPID, TSH #### [facility] [address] [place] [address] Dr. Hugh Landis CO2 [Moles/Vol] 31.6 mmol/L Normal 21.0-32.0 [facility] Comment on above: Performed By: #### C MP, LIPID, TSH #### [facility] [address] [address] [address] Hugh Landis Creatinine [Mass/Vol] 1.25 mg/dL Normal 0.70-1.30 [facility] Comment on above: Performed By: #### C MP, LIPID, TSH #### [facility] [address] [place] [address] Dr. Hugh Landis EGFR-AF KYRGYZ >60 Normal >=60 [facility] Comment on above: Performed By: #### C MP, LIPID, TSH #### [facility] [address] [address] [address] Hugh Landis EGFR-NON AF KYRGYZ 59 mL/min/1.73m2 Critically low >=60 [facility] Comment on above: Performed By: #### C MP, LIPID, TSH #### [facility] [address] [address] [address] Hugh Landis Glucose [Mass/Vol] 110 mg/dL Critically high 74-106 [facility] Comment on above: Performed By: #### C MP, LIPID, TSH #### [facility] [address] [place] [address] Dr. Hugh Landis Potassium [Moles/Vol] 3.5 mmol/L Normal 3.5-5.1 [facility] Comment on above: Performed By: #### C MP, LIPID, TSH #### [facility] [address] [place] [address] Dr. Hugh Landis Sodium [Moles/Vol] 141 mmol/L Normal 136-145 [facility] Comment on above: Performed By: #### C MP, LIPID, TSH #### [facility] [address] [place] [address] Dr. Hugh Landis Urea nitrogen [Mass/Vol] 27.0 mg/dL Critically high 7.0-18.0 [facility] Comment on above: Performed By: #### C MP, LIPID, TSH #### [facility] [address] [place] [address] Dr. Hugh Landis Urea nitrogen/Creatinine [Mass ratio] 21.6 mg/mg Normal [facility] Comment on above: Performed By: #### C MP, LIPID, TSH #### [facility] [address] [place] [address] Dr. Hugh Landis PTTon 03-08-2022 aPTT Coag (Bld) [Time] 27.0 s Normal 22.3-36.2 [facility] Comment on above: Performed By: #### P TT #### [facility] [address] [place] [address] Dr. Hugh Landis INSULINon 01-25-2022 Insulin 11.1 uIU/mL Normal 2.6-24.9 [facility] Comment on above: Performed By: #### U TOMAS, TSH, CMP, LIPID, T7 #### [facility] [address] [place] [address] Dr. Hugh Landis CBC AUTO DIFFon 01-24-2022 BASO # 0.1 103/ul Normal 0.0-0.1 [facility] Comment on above: Performed By: #### C MP, LIPID, TSH #### [facility] [address] [place] [address] Dr. Hugh Landis Basophils/100 WBC (Bld) 1.3 % Normal 0.2-2.0 [facility] Comment on above: Performed By: #### C MP, LIPID, TSH #### [facility] [address] [place] [address] Dr. Hugh Landis EO # 0.2 103/ul Normal 0.0-0.7 [facility] Comment on above: Performed By: #### C MP, LIPID, TSH #### [facility] [address] [place] [address] Dr. Hugh Landis Eosinophils/100 WBC (Bld) 4.7 % Normal 0.9-7.0 [facility] Comment on above: Performed By: #### C MP, LIPID, TSH #### [facility] [address] [place] [address] Dr. Hugh Landis Erythrocyte distribution width (RBC) [Ratio] 12.6 % Normal 11.0-15.0 [facility] Comment on above: Performed By: #### C MP, LIPID, TSH #### [facility] [address] [place] [address] Dr. Hugh Landis Hematocrit (Bld) [Volume fraction] 39.1 % Critically low 42.0-54.0 [facility] Comment on above: Performed By: #### C MP, LIPID, TSH #### [facility] [address] [place] [address] Dr. Hugh Landis Hemoglobin (Bld) [Mass/Vol] 12.4 g/dL Critically low 14.0-18.0 [facility] Comment on above: Performed By: #### C MP, LIPID, TSH #### [facility] [address] [place] [address] Dr. Hugh Landis IG # 0.01 10e3/ul Normal 0.00-0.03 [facility] Comment on above: Performed By: #### C MP, LIPID, TSH #### [facility] [address] [place] [address] Dr. Hugh Landis IG % 0.2 % Normal 0.0-0.5 [facility] Comment on above: Performed By: #### C MP, LIPID, TSH #### [facility] [address] [place] [address] Dr. Hugh Landis LYMPH # 0.9 103/ul Critically low 1.2-3.8 [facility] Comment on above: Performed By: #### C MP, LIPID, TSH #### [facility] [address] [place] [address] Dr. Hugh Landis Lymphocytes/100 WBC (Bld) 19.4 % Critically low 20.5-60.0 [facility] Comment on above: Performed By: #### C MP, LIPID, TSH #### [facility] [address] [place] [address] Dr. Hugh Landis MANUAL DIFF REQ NO Normal [facility] Comment on above: Performed By: #### C MP, LIPID, TSH #### [facility] [address] [place] [address] Dr. Hugh Landis MCH (RBC) [Entitic mass] 29.2 pg Normal 25.9-34.0 [facility] Comment on above: Performed By: #### C MP, LIPID, TSH #### [facility] [address] [place] [address] Dr. Hugh Landis MCHC (RBC) [Mass/Vol] 31.7 g/dL Normal 29.9-35.2 [facility] Comment on above: Performed By: #### C MP, LIPID, TSH #### [facility] [address] [place] [address] Dr. Hugh Landis MCV (RBC) [Entitic vol] 92.0 fL Normal 80.0-94.0 [facility] Comment on above: Performed By: #### C MP, LIPID, TSH #### [facility] [address] [place] [address] Dr. Hugh Landis MONO # 0.5 103/ul Normal 0.3-0.8 [facility] Comment on above: Performed By: #### C MP, LIPID, TSH #### [facility] [address] [address] [address] Hugh Landis Monocytes/100 WBC (Bld) 9.6 % Normal 1.7-12.0 [facility] Comment on above: Performed By: #### C MP, LIPID, TSH #### [facility] [address] [address] [address] Hugh Landis NEUT # 3.0 103/ul Normal 1.4-6.5 [facility] Comment on above: Performed By: #### C MP, LIPID, TSH #### [facility] [address] [place] [address] Dr. Hugh Landis Neutrophils/100 WBC (Bld) 64.8 % Normal 43.0-75.0 [facility] Comment on above: Performed By: #### C MP, LIPID, TSH #### [facility] [address] [place] [address] Dr. Hugh Landis Platelet mean volume (Bld) [Entitic vol] 9.4 fL Critically low 9.5-13.5 [facility] Comment on above: Performed By: #### C MP, LIPID, TSH #### [facility] [address] [place] [address] Dr. Hugh Landis PLT 232 103/ul Normal 150-450 [facility] Comment on above: Performed By: #### C MP, LIPID, TSH #### [facility] [address] [place] [address] Dr. Hugh Landis RBC 4.25 106/ul Critically low 4.70-6.10 [facility] Comment on above: Performed By: #### C MP, LIPID, TSH #### [facility] [address] [place] [address] Dr. Hugh Landis WBC 4.7 103/ul Normal 4.0-11.0 [facility] Comment on above: Performed By: #### C MP, LIPID, TSH #### [facility] [address] [place] [address] Dr. Hugh Landis FREE THYROXINE INDEX T7on FTI 2.65 Normal 1.30-4.50 [facility] Comment on above: Performed By: #### B MP #### [facility] [address] [address] [address] Hugh Landis T3U 34.0 % Normal 33.0-40.0 [facility] Comment on above: Performed By: #### B MP #### [facility] [address] [address] [address] Hugh Landis T4 [Mass/Vol] 7.80 ug/dL Normal 4.50-12.10 [facility] Comment on above: Performed By: #### B MP #### [facility] [address] [place] [address] Dr. Hugh Landis GLYCOHEMOGLOBIN A1Con 2021 ADA RECOMMENDATION SEE BELOW Normal [facility] Comment on above: Result Comment: ADA RECOMMENDED LIMIT 4.0 - 6.0 ADA THERAPEUTIC TARGET < 7.0 ACTION SUGGESTED > 7.0 Performed By: #### C MP, LIPID, TSH #### [facility] [address] [place] [address] Dr. Hugh Landis Glucose [Mass/Vol] 123 mg/dL Normal [facility] Comment on above: Performed By: #### C MP, LIPID, TSH #### [facility] [address] [place] [address] Dr. Hugh Landis HbA1c (Bld) [Mass fraction] 5.9 % Normal 4.5-6.2 [facility] Comment on above: Performed By: #### C MP, LIPID, TSH #### [facility] [address] [place] [address] Dr. Hugh Landis LIPID PROFILEon 01-24-2022 CHOL-HDL RATIO NORM SEE BELOW Normal [facility] Comment on above: Result Comment: 3.3 - 4.4 LOW RISK 4.4 - 7.1 AVERAGE RISK 7.1 - 11.0 MODERATE RISK >11.0 HIGH RISK Performed By: #### U TOMAS, TSH, CMP, LIPID, T7 #### [facility] [address] [place] [address] Dr. Hugh Landis Cholesterol [Mass/Vol] 179 mg/dL Normal <=200 [facility] Comment on above: Performed By: #### U TOMAS, TSH, CMP, LIPID, T7 #### [facility] [address] [address] [address] Hugh Landis Cholesterol in HDL [Mass/Vol] 46 mg/dL Normal 40-60 [facility] Comment on above: Performed By: #### U TOMAS, TSH, CMP, LIPID, T7 #### [facility] [address] [address] [address] Hugh Landis Cholesterol in LDL [Mass/Vol] 100.4 mg/dL Normal [facility] Comment on above: Performed By: #### U TOMAS, TSH, CMP, LIPID, T7 #### [facility] [address] [address] [address] Hugh Landis Cholesterol.total/Ch olesterol in HDL [Mass ratio] 3.9 {ratio} Normal [facility] Comment on above: Performed By: #### U TOMAS, TSH, CMP, LIPID, T7 #### [facility] [address] [address] [address] Hugh Landis HDL NORMAL > or = 60 mg/dl - LO W CARDIOVASCULAR RISK <40 mg/dl - HIGH CARDIOVASCULAR RISK Normal [facility] Comment on above: Performed By: #### U TOMAS, TSH, CMP, LIPID, T7 #### [facility] [address] [address] [address] Hugh Landis LDL CALC NORMAL SEE BELOW Normal [facility] Comment on above: Result Comment: <100 mg/dl OPTIMAL 100 - 129 mg/dl NEAR OR ABOVE OPTIMAL 130 - 159 mg/dl BORDERLINE HIGH 160 - 189 mg/dl HIGH >190 mg/dl VERY HIGH Performed By: #### U TOMAS, TSH, CMP, LIPID, T7 #### [facility] [address] [address] [address] Hugh Landis Triglyceride [Mass/Vol] 163 mg/dL Critically high <=150 [facility] Comment on above: Performed By: #### U TOMAS, TSH, CMP, LIPID, T7 #### [facility] [address] [address] [address] Hugh Landis VLDL CALC 32.6 mg/dL Normal [facility] Comment on above: Performed By: #### U TOMAS, TSH, CMP, LIPID, T7 #### [facility] [address] [address] [address] Hugh Landis PROF 14(COMP METB)on 022 Albumin [Mass/Vol] 3.6 g/dL Normal 3.4-5.0 [facility] Comment on above: Performed By: #### U TOMAS, TSH, CMP, LIPID, T7 #### [facility] [address] [address] [address] Hugh Landis Albumin/Globulin [Mass ratio] 0.9 {ratio} Normal [facility] Comment on above: Performed By: #### U TOMAS, TSH, CMP, LIPID, T7 #### [facility] [address] [place] [address] Dr. Hugh Landis ALP [Catalytic activity/Vol] 81 U/L Normal 46-116 [facility] Comment on above: Performed By: #### U TOMAS, TSH, CMP, LIPID, T7 #### [facility] [address] [address] [address] Hugh Landis ALT [Catalytic activity/Vol] 19 U/L Normal 16-63 [facility] Comment on above: Performed By: #### U TOMAS, TSH, CMP, LIPID, T7 #### [facility] [address] [address] [address] Hugh Landis Anion gap [Moles/Vol] 13.4 mmol/L Normal [facility] Comment on above: Performed By: #### U TOMAS, TSH, CMP, LIPID, T7 #### [facility] [address] [address] [address] Hugh Landis AST [Catalytic activity/Vol] 16 U/L Normal 15-37 [facility] Comment on above: Performed By: #### U TOMAS, TSH, CMP, LIPID, T7 #### [facility] [address] [address] [address] Hugh Landis Bilirubin [Mass/Vol] 0.5 mg/dL Normal 0.2-1.0 [facility] Comment on above: Performed By: #### U TOMAS, TSH, CMP, LIPID, T7 #### [facility] [address] [address] [address] Hugh Landis Calcium [Mass/Vol] 9.7 mg/dL Normal 8.5-10.1 [facility] Comment on above: Performed By: #### U TOMAS, TSH, CMP, LIPID, T7 #### [facility] [address] [address] [address] Hugh Landis Chloride [Moles/Vol] 105 mmol/L Normal 98-107 [facility] Comment on above: Performed By: #### U TOMAS, TSH, CMP, LIPID, T7 #### [facility] [address] [address] [address] Hugh Landis CO2 [Moles/Vol] 27.4 mmol/L Normal 21.0-32.0 [facility] Comment on above: Performed By: #### U TOMAS, TSH, CMP, LIPID, T7 #### [facility] [address] [address] [address] Hugh Landis Creatinine [Mass/Vol] 1.37 mg/dL Critically high 0.70-1.30 [facility] Comment on above: Performed By: #### U TOMAS, TSH, CMP, LIPID, T7 #### [facility] [address] [place] [address] Dr. Hugh Landis EGFR-AF KYRGYZ >60 Normal >=60 [facility] Comment on above: Performed By: #### U TOMAS, TSH, CMP, LIPID, T7 #### [facility] [address] [address] [address] Hugh Landis EGFR-NON AF KYRGYZ 53 mL/min/1.73m2 Critically low >=60 [facility] Comment on above: Performed By: #### U TOMAS, TSH, CMP, LIPID, T7 #### [facility] [address] [address] [address] Hugh Landis Globulin (S) [Mass/Vol] 4.0 g/dL Normal [facility] Comment on above: Performed By: #### U TOMAS, TSH, CMP, LIPID, T7 #### [facility] [address] [address] [address] Hugh Landis Glucose [Mass/Vol] 113 mg/dL Critically high 74-106 [facility] Comment on above: Performed By: #### U TOMAS, TSH, CMP, LIPID, T7 #### [facility] [address] [place] [address] Dr. Hugh Landis Potassium [Moles/Vol] 3.8 mmol/L Normal 3.5-5.1 [facility] Comment on above: Performed By: #### U TOMAS, TSH, CMP, LIPID, T7 #### [facility] [address] [address] [address] Hugh Landis Protein [Mass/Vol] 7.6 g/dL Normal 6.4-8.2 [facility] Comment on above: Performed By: #### U TOMAS, TSH, CMP, LIPID, T7 #### [facility] [address] [place] [address] Dr. Hugh Landis Sodium [Moles/Vol] 142 mmol/L Normal 136-145 [facility] Comment on above: Performed By: #### U TOMAS, TSH, CMP, LIPID, T7 #### [facility] [address] [address] [address] Hugh Landis Urea nitrogen [Mass/Vol] 21.0 mg/dL Critically high 7.0-18.0 [facility] Comment on above: Performed By: #### U TOMAS, TSH, CMP, LIPID, T7 #### [facility] [address] [place] [address] Dr. Hugh Landis Urea nitrogen/Creatinine [Mass ratio] 15.3 mg/mg Normal [facility] Comment on above: Performed By: #### U TOMAS, TSH, CMP, LIPID, T7 #### [facility] [address] [place] [address] Dr. Hugh Landis TSHon 01-24-2022 TSH 0.663 uIU/mL Normal 0.358-3.740 [facility] Comment on above: Performed By: #### U TOMAS, TSH, CMP, LIPID, T7 #### [facility] [address] [place] [address] Dr. Hugh Landis URIC ACID SERUMon 01-24-2022 Urate [Mass/Vol] 6.9 mg/dL Normal 3.5-7.2 [facility] Comment on above: Performed By: #### B MP #### [facility] [address] [place] [address] Dr. Hugh Landis VITAMIN D 25 OHon 01-24-2022 VIT D 25-OH 37.0 ng/mL Normal [facility] Comment on above: Performed By: #### P TT #### [facility] [address] [place] [address] Dr. Hugh Landis VIT D RANGES SEE BELOW Normal [facility] Comment on above: Result Comment: <20 ng/mL Vit D deficient 20 - <30 ng/mL Vit D insufficient 30 - 100 ng/mL Vit D sufficient >100 ng/mL Potential Toxicity Performed By: #### P TT #### [facility] [address] [place] [address] Dr. Hugh Landis US KIDNEYSon 12-21-2021 US [...] by: OBIE TSE Date: 2021-12-21 17:34 Normal [facility] XR ABD FLAT UP_PA Barrett 12-21 [...] by: AUSTIN LARIOS Date: 2021-12-21 18:13 Normal [facility] Urine culture routineOrdered By: Estephanie Lowry on 12-17-2021 Bacteria identified Cx Nom (U) No Growth 2 Days [facility] Chlamydia trachomatis DNA [P resence] in Specimen by MUKUL with probe detectionOrdered By: Estephanie Lowry on 12-15-2021 C. trachomatis DNA MUKUL+probe Ql (Unsp spec) Negative Negative [facility] Chlamydia/GC/Trich NAAon Chlamydia Trachomotis, MUKUL Negative Normal Negative [facility] Comment on above: Order Comment: Reaso n for Exam Dysuria Performed By: #### G CCHLAMTRI #### [facility] , #### CUU #### [facility] [address] [place] [address] [place] Neisseria Gonorrhoeae, MUKUL Negative Normal Negative [facility] Comment on above: Order Comment: Reaso n for Exam Dysuria Performed By: #### G CCHLAMTRI #### [facility] , #### CUU #### [facility] [address] [place] [address] [place] Trichomonas MUKUL Negative Normal Negative [facility] Comment on above: Order Comment: Reaso n for Exam Dysuria Result Comment: Perf ormed at: =G - [facility] [address] [id number] [employer] Helper: Shoshana Camargo MD, Phone: [phone] PERFORMED BY: [place] [address] PATHOLOGIST LINOTYPE MECHANIC SABRA SAUNDERS M.D. Performed By: #### G CCHLAMTRI #### [facility] , #### CUU #### [address] Chlamydia/GC/Trich MUKUL Negative Negative [employer] Other Neisseria gonorrhoeae DNA [P resence] in Specimen by MUKUL with probe detectionOrdered By: Estephanie Lowry on 12-15-2021 N. gonorrhoeae DNA MUKUL+probe Ql (Unsp spec) Negative Negative [facility] Trichomonas vaginalis DNA [P resence] in Specimen by MUKUL with probe detectionOrdered By: Estephanie Lowry on 12-15-2021 T. vaginalis DNA MUKUL+probe Ql (Unsp spec) Negative Negative [facility] Comment on above: Performed at: = - Kelly almeida [address] [id number] Director: Shoshana Camargo MD, Phone: [phone] Urinalysis - AUTOMATEDon Appearance (U) clear [employer] Other Bilirubin Ql (U) Negative [employer] Other Color (U) orange [employer] Other Glucose Ql (U) Negative [employer] Other Hemoglobin Ql (U) moderate [employer] by [employer] Other Ketones Ql (U) Negative [employer] Other Leukocyte esterase Test strip Ql (U) Negative [employer] Other Nitrite Ql (U) Positive [employer] Other pH (U) 5.5 [pH] [employer] Other Protein Ql (U) Negative [employer] Other Specific gravity (U) [Rel density] 1.015 [employer] Other Urobilinogen (U) [Mass/Vol] 0.2 mg/dL [employer] Other Urinalysis - AUTOMATED [employer] Other Urine Cultureon 12-15-2021 Bacteria identified Cx Nom (U) Reason for Exam Dysuria Urine No Growth 2 Days PERFORMED BY: [place] [address] PATHOLOGIST LINOTYPE MECHANIC SABRA SAUNDERS M.D. Normal [facility] Comment on above: Performed By: #### G CCHLAMTRI #### [facility] , #### CUU #### [facility] [address] [place] [address] Bacteria identified Cx Nom (U) [employer] Other CULTURE URINEon 11-24-2021 CULTURE URINE Culture Observations : NO GROWTH. Normal [facility] Comment on above: Performed By: #### B MP #### [facility] [address] [place] [address] Dr. Hugh Landis PROTEIN ELECTROPHERESIS URIN E RANDOMon 11-17-2021 Albumin, U 33.4 % Normal [facility] Comment on above: Performed By: #### C MP, LIPID, TSH #### [facility] [address] [address] [address] Hugh Landis Alpha-1 Globulin U 4.7 % Normal [facility] Comment on above: Performed By: #### C MP, LIPID, TSH #### [facility] [address] [address] [address] Hugh Landis Alpha-2 Glubulin U 18.6 % Normal [facility] Comment on above: Performed By: #### C MP, LIPID, TSH #### [facility] [address] [address] [address] Hugh Landis Beta Globulin, U 19.9 % Normal [facility] Comment on above: Performed By: #### C MP, LIPID, TSH #### [facility] [address] [place] [address] Dr. Hugh Landis Gamma Globulin U 23.4 % Normal [facility] Comment on above: Performed By: #### C MP, LIPID, TSH #### [facility] [address] [place] [address] Dr. Hugh Landis M-Tariq, % Not Observed Normal Not Observed [facility] Comment on above: Performed By: #### C MP, LIPID, TSH #### [facility] [address] [place] [address] Dr. Hugh Landis PDF . Normal [facility] Comment on above: Performed By: #### C MP, LIPID, TSH #### [facility] [address] [place] [address] Dr. Hugh Landis Please note: Comment Normal [facility] Comment on above: Result Comment: Prot ein electrophoresis scan will follow via computer, mail, or bleacher [employer] delivery. Performed By: #### C MP, LIPID, TSH #### [facility] [address] [place] [address] Dr. Hugh Landis Protein (U) [Mass/Vol] 4.9 mg/dL Normal Not Estab. [facility] Comment on above: Performed By: #### C MP, LIPID, TSH #### [facility] [address] [place] [address] Dr. Hugh Landis IMMUNOFIXATION(PRINCE),PROTEIN ELEC(PE),FREon 11-16-2021 Albumin [Mass/Vol] 3.4 g/dL Normal 2.9-4.4 [facility] Comment on above: Performed By: #### C MP, LIPID, TSH #### [facility] [address] [place] [address] Dr. Hugh Landis Albumin/Globulin [Mass ratio] 1.0 {ratio} Normal 0.7-1.7 [facility] Comment on above: Performed By: #### C MP, LIPID, TSH #### [facility] [address] [address] [address] Hugh Landis Rtkeh-4-Cyliwhiy 0.2 g/dL Normal 0.0-0.4 [facility] Comment on above: Performed By: #### C MP, LIPID, TSH #### [facility] [address] [address] [address] Hugh Landis Qwbaz-0-Kwptunod 1.1 g/dL Critically high 0.4-1.0 [facility] Comment on above: Performed By: #### C MP, LIPID, TSH #### [facility] [address] [address] [address] Hugh Landis Beta Globulin 1.0 g/dL Normal 0.7-1.3 [facility] Comment on above: Performed By: #### C MP, LIPID, TSH #### [facility] [address] [address] [address] Hugh Landis Free [place] Lt Chains,S 35.7 mg/L Critically high 3.3-19.4 [facility] Comment on above: Performed By: #### C MP, LIPID, TSH #### [facility] [address] [address] [address] Hugh Landis Free Lambda Lt Chains,S 21.1 mg/L Normal 5.7-26.3 [facility] Comment on above: Performed By: #### C MP, LIPID, TSH #### [facility] [address] [address] [address] Hugh Landis Gamma Globulin 1.2 g/dL Normal 0.4-1.8 [facility] Comment on above: Performed By: #### C MP, LIPID, TSH #### [facility] [address] [address] [address] Hugh Landis Globulin (S) [Mass/Vol] 3.5 g/dL Normal 2.2-3.9 [facility] Comment on above: Performed By: #### C MP, LIPID, TSH #### [facility] [address] [address] [address] Hugh Landis Immunofixation Result, Serum Comment Normal [facility] Comment on above: Result Comment: No m onoclonality detected. Performed By: #### C MP, LIPID, TSH #### [facility] [address] [address] [address] Hugh Landis Immunoglobulin A, Qn, Serum 228 mg/dL Normal 90-386 [facility] Comment on above: Performed By: #### C MP, LIPID, TSH #### [facility] [address] [address] [address] Hugh Landis Immunoglobulin G, Qn, Serum 1221 mg/dL Normal 603-1613 [facility] Comment on above: Performed By: #### C MP, LIPID, TSH #### [facility] [address] [address] [address] Hugh Landis Immunoglobulin M, Qn, Serum 79 mg/dL Normal 20-172 [facility] Comment on above: Performed By: #### C MP, LIPID, TSH #### [facility] [address] [address] [address] Hugh Landis [place]/Lambda Ratio, S 1.69 Critically high 0.26-1.65 [facility] Comment on above: Performed By: #### C MP, LIPID, TSH #### [facility] [address] [address] [address] Hugh Landis M-Tariq Not Observed Normal Not Observed [facility] Comment on above: Performed By: #### C MP, LIPID, TSH #### [facility] [address] [address] [address] Hugh Landis PDF . Normal [facility] Comment on above: Performed By: #### C MP, LIPID, TSH #### [facility] [address] [address] [address] Hugh Landis Please note: Comment Normal [facility] Comment on above: Result Comment: Prot ein electrophoresis scan will follow via computer, mail, or bleacher [employer] delivery. Performed By: #### C MP, LIPID, TSH #### [facility] [address] [address] [address] Hugh Landis Protein [Mass/Vol] 6.9 g/dL Normal 6.0-8.5 [facility] Comment on above: Performed By: #### C MP, LIPID, TSH #### [facility] [address] [place] [address] Dr. Hugh Landis PROTEIN AND CREA RANDOM UR R ATIOon 11-16-2021 Creatinine, Urine 54.8 mg/dL Normal Not Estab. [facility] Comment on above: Performed By: #### C MP, LIPID, TSH #### [facility] [address] [place] [address] Dr. Hugh Landis Protein (U) [Mass/Vol] 4.1 mg/dL Normal Not Estab. [facility] Comment on above: Performed By: #### C MP, LIPID, TSH #### [facility] [address] [place] [address] Dr. Hugh Landis Protein/Creat Ratio 75 mg/g creat Normal 0-200 [facility] Comment on above: Performed By: #### C MP, LIPID, TSH #### [facility] [address] [place] [address] Dr. Hugh Landis PTH INTACTon 11-15-2021 PTH, Intact 39 pg/mL Normal 15-65 [facility] Comment on above: Performed By: #### P T #### [facility] [address] [place] [address] Dr. Hugh Landis UA RANDOM W/MICROSCOPICon BACTERIA NONE SEEN Normal NONE SEEN [facility] Comment on above: Performed By: #### P TT #### [facility] [address] [place] [address] Dr. uHgh Landis Bilirubin Ql (U) Negative Normal NEGATIVE [facility] Comment on above: Performed By: #### P TT #### [facility] [address] [place] [address] Dr. Hugh Landis CAST NONE SEEN Normal NONE SEEN [facility] Comment on above: Performed By: #### P TT #### [facility] [address] [place] [address] Dr. Hugh Landis Clarity (U) CLEAR Normal CLEAR [facility] Comment on above: Performed By: #### P TT #### [facility] [address] [place] [address] Dr. Hugh Landis Color (U) LT. YELLOW Normal YELLOW [facility] Comment on above: Performed By: #### P TT #### [facility] [address] [address] [address] Hugh Landis Crystals LM Nom (Urine sed) NONE SEEN Normal NONE SEEN [facility] Comment on above: Performed By: #### P TT #### [facility] [address] [place] [address] Dr. Hugh Landis Epithelial cells LM Ql (Urine sed) NONE SEEN Normal NONE SEEN /RARE [facility] Comment on above: Performed By: #### P TT #### [facility] [address] [place] [address] Dr. Hugh Landis Glucose Ql (U) Negative Normal NEGATIVE [facility] Comment on above: Performed By: #### P TT #### [facility] [address] [place] [address] Dr. Hugh Landis Hemoglobin Ql (U) MODERATE Abnormal NEGATIVE [facility] Comment on above: Performed By: #### P TT #### [facility] [address] [place] [address] Dr. Hugh Landis Ketones Ql (U) Negative Normal NEGATIVE [facility] Comment on above: Performed By: #### P TT #### [facility] [address] [place] [address] Dr. Hugh Landis LEUKOCYTES Negative Normal NEGATIVE [facility] Comment on above: Performed By: #### P TT #### [facility] [address] [place] [address] Dr. Hugh Landis MUCOUS NONE SEEN Normal NONE SEEN [facility] Comment on above: Performed By: #### P TT #### [facility] [address] [place] [address] Dr. Hugh Landis Nitrite Ql (U) Negative Normal NEGATIVE [facility] Comment on above: Performed By: #### P TT #### [facility] [address] [place] [address] Dr. Hugh Landis pH (U) 5.5 [pH] Normal 5-9 [facility] Comment on above: Performed By: #### P TT #### [facility] [address] [place] [address] Dr. Hugh Landis RBC 5-10 Abnormal 0-2 [facility] Comment on above: Performed By: #### P TT #### [facility] [address] [place] [address] Dr. Hugh Landis SPEC GRAVITY 1.010 Normal 1.005-<=1.02 5 [facility] Comment on above: Performed By: #### P TT #### [facility] [address] [place] [address] Dr. Hugh Landis UA PROTEIN Negative Normal NEGATIVE/ TRACE [facility] Comment on above: Performed By: #### P TT #### [facility] [address] [place] [address] Dr. Hugh Landis Urobilinogen Qn (U) 0.2 {Dahiana'U}/dL Normal 0.2 - 1. 0 [facility] Comment on above: Performed By: #### P TT #### [facility] [address] [place] [address] Dr. Hugh Landis WBC 0-2 Abnormal NONE SEEN [facility] Comment on above: Performed By: #### P TT #### [facility] [address] [place] [address] Dr. Hugh Landis URINE T PROTEIN CREAT RATIOo n 11-15-2021 Protein (U) [Mass/Vol] 10.0 mg/dL Normal <=12.0 [facility] Comment on above: Performed By: #### B MP #### [facility] [address] [place] [address] Dr. Hugh Landis UR PROT CREAT RAT 0.18 Normal [facility] Comment on above: Performed By: #### B MP #### [facility] [address] [place] [address] Dr. Hugh Landis URINE CREAT 57.11 mg/dL Normal 20.00-300.00 [facility] Comment on above: Performed By: #### B MP #### [facility] [address] [address] [address] Hugh Landis FERRITINon 11-14-2021 Ferritin [Mass/Vol] 95.0 ng/mL Normal 26.0-388.0 [facility] Comment on above: Performed By: #### C MP, LIPID, TSH #### [facility] [address] [address] [address] Hugh Landis HEMOGRAM AND PLATELon 2021 Hematocrit (Bld) [Volume fraction] 35.7 % Critically low 42.0-54.0 [facility] Comment on above: Performed By: #### U TOMAS, TSH, CMP, LIPID, T7 #### [facility] [address] [address] [address] Hugh Landis Hemoglobin (Bld) [Mass/Vol] 11.5 g/dL Critically low 14.0-18.0 [facility] Comment on above: Performed By: #### U TOMAS, TSH, CMP, LIPID, T7 #### [facility] [address] [address] [address] Hugh Landis MCH (RBC) [Entitic mass] 30.3 pg Normal 25.9-34.0 [facility] Comment on above: Performed By: #### U TOMAS, TSH, CMP, LIPID, T7 #### [facility] [address] [place] [address] Dr. Hugh Landis MCHC (RBC) [Mass/Vol] 32.2 g/dL Normal 29.9-35.2 [facility] Comment on above: Performed By: #### U TOMAS, TSH, CMP, LIPID, T7 #### [facility] [address] [address] [address] Hugh Landis MCV (RBC) [Entitic vol] 93.9 fL Normal 80.0-94.0 [facility] Comment on above: Performed By: #### U TOMAS, TSH, CMP, LIPID, T7 #### [facility] [address] [address] [address] Hugh Landis PLT 254 103/ul Normal 150-450 [facility] Comment on above: Performed By: #### U TOMAS, TSH, CMP, LIPID, T7 #### [facility] [address] [address] [address] Hugh Landis RBC 3.80 106/ul Critically low 4.70-6.10 [facility] Comment on above: Performed By: #### U TOMAS, TSH, CMP, LIPID, T7 #### [facility] [address] [address] [address] Hugh Landis WBC 6.4 103/ul Normal 4.0-11.0 [facility] Comment on above: Performed By: #### U TOMAS, TSH, CMP, LIPID, T7 #### [facility] [address] [place] [address] Dr. Hugh Landis IRON AND TIBCon 11-14-2021 % SATURATION 27.6 % Normal [facility] Comment on above: Performed By: #### C MP, LIPID, TSH #### [facility] [address] [address] [address] Hugh Landis Iron [Mass/Vol] 68.0 ug/dL Normal 65.0-175.0 [facility] Comment on above: Performed By: #### C MP, LIPID, TSH #### [facility] [address] [place] [address] Dr. Hugh Landis TIBC DIRECT 246.0 ug/dL Critically low 250.0-450.0 [facility] Comment on above: Performed By: #### C MP, LIPID, TSH #### [facility] [address] [place] [address] Dr. Hugh Landis MAGNESIUMon 11-14-2021 Magnesium [Mass/Vol] 1.8 mg/dL Normal 1.8-2.4 [facility] Comment on above: Performed By: #### U TOMAS, TSH, CMP, LIPID, T7 #### [facility] [address] [place] [address] Dr. Hugh Landis RENAL FUNCTION PANELon 11-14 Albumin [Mass/Vol] 3.4 g/dL Normal 3.4-5.0 [facility] Comment on above: Performed By: #### U TOMAS, TSH, CMP, LIPID, T7 #### [facility] [address] [address] [address] Hugh Landis Calcium [Mass/Vol] 9.1 mg/dL Normal 8.5-10.1 [facility] Comment on above: Performed By: #### U TOMAS, TSH, CMP, LIPID, T7 #### [facility] [address] [address] [address] Hugh Landis Chloride [Moles/Vol] 105 mmol/L Normal 98-107 [facility] Comment on above: Performed By: #### U TOMAS, TSH, CMP, LIPID, T7 #### [facility] [address] [address] [address] Hugh Landis CO2 [Moles/Vol] 29.2 mmol/L Normal 21.0-32.0 [facility] Comment on above: Performed By: #### U TOMAS, TSH, CMP, LIPID, T7 #### [facility] [address] [address] [address] Hugh Landis Creatinine [Mass/Vol] 1.62 mg/dL Critically high 0.70-1.30 [facility] Comment on above: Performed By: #### U TOMAS, TSH, CMP, LIPID, T7 #### [facility] [address] [address] [address] Hugh Landis EGFR-AF KYRGYZ 53 mL/min/1.73m2 Critically low >=60 [facility] Comment on above: Performed By: #### U TOMAS, TSH, CMP, LIPID, T7 #### [facility] [address] [address] [address] Hugh Landis EGFR-NON AF KYRGYZ 44 mL/min/1.73m2 Critically low >=60 [facility] Comment on above: Performed By: #### U TOMAS, TSH, CMP, LIPID, T7 #### [facility] [address] [address] [address] Hugh Landis Glucose [Mass/Vol] 136 mg/dL Critically high 74-106 [facility] Comment on above: Performed By: #### U TOMAS, TSH, CMP, LIPID, T7 #### [facility] [address] [address] [address] Hugh Landis Phosphate [Mass/Vol] 2.8 mg/dL Normal 2.6-4.7 [facility] Comment on above: Performed By: #### U TOMAS, TSH, CMP, LIPID, T7 #### [facility] [address] [address] [address] Hugh Landis Potassium [Moles/Vol] 3.1 mmol/L Critically low 3.5-5.1 [facility] Comment on above: Performed By: #### U TOMAS, TSH, CMP, LIPID, T7 #### [facility] [address] [address] [address] Hugh Landis Sodium [Moles/Vol] 141 mmol/L Normal 136-145 [facility] Comment on above: Performed By: #### U TOMAS, TSH, CMP, LIPID, T7 #### [facility] [address] [address] [address] Hugh Landis Urea nitrogen [Mass/Vol] 19.0 mg/dL Critically high 7.0-18.0 [facility] Comment on above: Performed By: #### U TOMAS, TSH, CMP, LIPID, T7 #### [facility] [address] [address] [address] Hugh Landis URIC ACID SERUMon 11-14-2021 Urate [Mass/Vol] 8.7 mg/dL Critically high 3.5-7.2 [facility] Comment on above: Performed By: #### U TOMAS, TSH, CMP, LIPID, T7 #### [facility] [address] [address] [address] Hugh Landis VIT B12 AND FOLATEon 022 Cobalamin (Vitamin B12) [Mass/Vol] 373.0 pg/mL Normal 193.0-986.0 [facility] Comment on above: Performed By: #### U TOMAS, TSH, CMP, LIPID, T7 #### [facility] [address] [place] [address] Dr. Hugh Landis FOLATE 14.00 ng/mL Normal 8.60-58.90 [facility] Comment on above: Performed By: #### U TOMAS, TSH, CMP, LIPID, T7 #### [facility] [address] [place], [place] [address] Dr. Hugh Landis VITAMIN D 25 OHon 11-14-2021 VIT D 25-OH 33.8 ng/mL Normal [facility] Comment on above: Performed By: #### U TOMAS, TSH, CMP, LIPID, T7 #### [facility] [address] [address] [address] Hugh Landis VIT D RANGES SEE BELOW Normal [facility] Comment on above: Result Comment: <20 ng/mL Vit D deficient 20 - <30 ng/mL Vit D insufficient 30 - 100 ng/mL Vit D sufficient >100 ng/mL Potential Toxicity Performed By: #### U TOMAS, TSH, CMP, LIPID, T7 #### [facility] [address] [place], [place] [address] Dr. Hugh Landis US KIDNEYS BLADDERon 022 [...] AUSTIN LARIOS Date: 2021-11-01 16:44 Normal [facility] XR CHEST 2 Von 11-01-2021 XR [...] by: OBIE TSE Date: 2021-11-01 06:51 Normal [facility] LUNG VENT_PERFon 11-01-19 22 NM LUNG VENT_PERF EXAM: [place] LUNG VENT_PERF HISTORY: Dyspnea COMPARISON: Chest x-ray 10/31/2021 TECHNIQUE: 6.1 mCi technetium MAA. 24.9 mCi technetium DTPA. FINDINGS: Perfusion images demonstrate no segmental perfusion defects to suggest acute pulmonary embolism Ventilation images are normal without ventilation defects. IMPRESSION: Normal ventilation/perfusion scan Electronically authenticated by: JASPER SCHRADER Date: 2021-10-31 12:35 Normal [facility] PROF CHEM 8 (BAS METB)on Anion gap [Moles/Vol] 17.5 mmol/L Normal [facility] Comment on above: Performed By: #### B MP #### [facility] [address] [address] [address] Hugh Landis Calcium [Mass/Vol] 9.4 mg/dL Normal 8.5-10.1 [facility] Comment on above: Performed By: #### B MP #### [facility] [address] [address] [address] Hugh Landis Chloride [Moles/Vol] 100 mmol/L Normal 98-107 [facility] Comment on above: Performed By: #### B MP #### [facility] [address] [address] [address] Hugh Landis CO2 [Moles/Vol] 22.8 mmol/L Normal 21.0-32.0 [facility] Comment on above: Performed By: #### B MP #### [facility] [address] [address] [address] Hugh Landis Creatinine [Mass/Vol] 2.69 mg/dL Critically high 0.70-1.30 [facility] Comment on above: Performed By: #### B MP #### [facility] [address] [address] [address] Hugh Landis EGFR-AF KYRGYZ 30 mL/min/1.73m2 Critically low >=60 [facility] Comment on above: Performed By: #### B MP #### [facility] [address] [address] [address] Hugh Landis EGFR-NON AF KYRGYZ 24 mL/min/1.73m2 Critically low >=60 [facility] Comment on above: Performed By: #### B MP #### [facility] [address] [address] [address] Hugh Landis Glucose [Mass/Vol] 117 mg/dL Critically high 74-[address] [facility] Comment on above: Performed By: #### B MP #### [facility] [address] [address] [address] Hugh Landis Potassium [Moles/Vol] 4.3 mmol/L Normal 3.5-5.1 [facility] Comment on above: Performed By: #### B MP #### [facility] [address] [address] [address] Hugh Landis Sodium [Moles/Vol] 136 mmol/L Normal 136-145 [facility] Comment on above: Performed By: #### B MP #### [facility] [address] [address] [address] Hugh Landis Urea nitrogen [Mass/Vol] 41.0 mg/dL Critically high 7.0-18.0 [facility] Comment on above: Performed By: #### B MP #### [facility] [address] [address] [address] Hugh Landis Urea nitrogen/Creatinine [Mass ratio] 15.2 mg/mg Normal [facility] Comment on above: Performed By: #### B MP #### [facility] [address] [address] [address] Hugh Landis CBC AUTO DIFFon 10-16-2021 BASO # 0.0 103/ul Normal 0.0-0.1 [facility] Comment on above: Performed By: #### P T #### [facility] [address] [address] [address] Hugh Landis Basophils/100 WBC (Bld) 0.6 % Normal 0.2-2.0 [facility] Comment on above: Performed By: #### P T #### [facility] [address] [address] [address] Hugh Landis EO # 0.2 103/ul Normal 0.0-0.7 [facility] Comment on above: Performed By: #### P T #### [facility] [address] [address] [address] Hugh Landis Eosinophils/100 WBC (Bld) 2.3 % Normal 0.9-7.0 [facility] Comment on above: Performed By: #### P T #### [facility] [address] [place] [address] Dr. Hugh Landis Erythrocyte distribution width (RBC) [Ratio] 12.7 % Normal 11.0-15.0 [facility] Comment on above: Performed By: #### P T #### [facility] [address] [place] [address] Dr. Hugh Landis Hematocrit (Bld) [Volume fraction] 36.2 % Critically low 42.0-54.0 [facility] Comment on above: Performed By: #### P T #### [facility] [address] [address] [address] Hugh Landis Hemoglobin (Bld) [Mass/Vol] 11.5 g/dL Critically low 14.0-18.0 [facility] Comment on above: Performed By: #### P T #### [facility] [address] [address] [address] Hugh Landis IG # 0.02 10e3/ul Normal 0.00-0.03 [facility] Comment on above: Performed By: #### P T #### [facility] [address] [address] [address] Hugh Landis IG % 0.3 % Normal 0.0-0.5 [facility] Comment on above: Performed By: #### P T #### [facility] [address] [place] [address] Dr. Hugh Landis LYMPH # 1.4 103/ul Normal 1.2-3.8 [facility] Comment on above: Performed By: #### P T #### [facility] [address] [place] [address] Dr. Hugh Landis Lymphocytes/100 WBC (Bld) 21.3 % Normal 20.5-60.0 [facility] Comment on above: Performed By: #### P T #### [facility] [address] [place] [address] Dr. Hugh Landis MANUAL DIFF REQ NO Normal [facility] Comment on above: Performed By: #### P T #### [facility] [address] [place] [address] Dr. Hugh Landis MCH (RBC) [Entitic mass] 29.6 pg Normal 25.9-34.0 [facility] Comment on above: Performed By: #### P T #### [facility] [address] [place] [address] Dr. Hugh Landis MCHC (RBC) [Mass/Vol] 31.8 g/dL Normal 29.9-35.2 [facility] Comment on above: Performed By: #### P T #### [facility] [address] [place] [address] Dr. Hugh Landis MCV (RBC) [Entitic vol] 93.1 fL Normal 80.0-94.0 [facility] Comment on above: Performed By: #### P T #### [facility] [address] [place] [address] Dr. Hugh Landis MONO # 0.8 103/ul Normal 0.3-0.8 [facility] Comment on above: Performed By: #### P T #### [facility] [address] [place] [address] Dr. Hugh Landis Monocytes/100 WBC (Bld) 11.5 % Normal 1.7-12.0 [facility] Comment on above: Performed By: #### P T #### [facility] [address] [place] [address] Dr. Hugh Landis NEUT # 4.2 103/ul Normal 1.4-6.5 [facility] Comment on above: Performed By: #### P T #### [facility] [address] [address] [address] Hugh Landis Neutrophils/100 WBC (Bld) 64.0 % Normal 43.0-75.0 [facility] Comment on above: Performed By: #### P T #### [facility] [address] [place] [address] Dr. Hugh Landis Platelet mean volume (Bld) [Entitic vol] 9.2 fL Critically low 9.5-13.5 [facility] Comment on above: Performed By: #### P T #### [facility] [address] [place] [address] Dr. Hugh Landis PLT 241 103/ul Normal 150-450 [facility] Comment on above: Performed By: #### P T #### [facility] [address] [place] [address] Dr. Hugh Landis RBC 3.89 106/ul Critically low 4.70-6.10 [facility] Comment on above: Performed By: #### P T #### [facility] [address] [place] [address] Dr. Hugh Landis WBC 6.5 103/ul Normal 4.0-11.0 [facility] Comment on above: Performed By: #### P T #### [facility] [address] [place] [address] Dr. Hugh Landis [facility] SARS-CoV-2 (COVID-19) RNA MUKUL+probe Ql (Unsp spec) Not detected Normal NOT DETECTED [facility] Comment on above: Result Comment: This test is not yet approved or cleared by the [place] FDA. When there are no FDA-approved or cleared tests available, and other criteria are met, FDA can make tests available under an emergency access mechanism called an Emergency Use Authorization (EUA). The EUA for this test is supported by the [place] of Health and Human Service's (HHS's) declaration [...] U TOMAS, TSH, CMP, LIPID, T7 #### [facility] [address] [place] [address] Dr. Hugh Landis PROF CHEM 8 (BAS METB)on Anion gap [Moles/Vol] 16.3 mmol/L Normal [facility] Comment on above: Performed By: #### C MP, LIPID, TSH #### [facility] [address] [place] [address] Dr. Hugh Landis Calcium [Mass/Vol] 9.6 mg/dL Normal 8.5-10.1 [facility] Comment on above: Performed By: #### C MP, LIPID, TSH #### [facility] [address] [place] [address] Dr. Hugh Landis Chloride [Moles/Vol] 103 mmol/L Normal 98-107 [facility] Comment on above: Performed By: #### C MP, LIPID, TSH #### [facility] [address] [place] [address] Dr. Hugh Landis CO2 [Moles/Vol] 21.9 mmol/L Normal 21.0-32.0 [facility] Comment on above: Performed By: #### C MP, LIPID, TSH #### [facility] [address] [place] [address] Dr. Hugh Landis Creatinine [Mass/Vol] 3.58 mg/dL Critically high 0.70-1.30 [facility] Comment on above: Performed By: #### C MP, LIPID, TSH #### [facility] [address] [address] [address] Hugh Landis EGFR-AF KYRGYZ 21 mL/min/1.73m2 Critically low >=60 [facility] Comment on above: Performed By: #### C MP, LIPID, TSH #### [facility] [address] [address] [address] Hugh Landis EGFR-NON AF KYRGYZ 18 mL/min/1.73m2 Critically low >=60 [facility] Comment on above: Performed By: #### C MP, LIPID, TSH #### [facility] [address] [address] [address] Huhg Landis Glucose [Mass/Vol] 115 mg/dL Critically high 74-106 [facility] Comment on above: Performed By: #### C MP, LIPID, TSH #### [facility] [address] [place] [address] Dr. Hugh Landis Potassium [Moles/Vol] 5.2 mmol/L Critically high 3.5-5.1 [facility] Comment on above: Performed By: #### C MP, LIPID, TSH #### [facility] [address] [address] [address] Hugh Landis Sodium [Moles/Vol] 136 mmol/L Normal 136-145 [facility] Comment on above: Performed By: #### C MP, LIPID, TSH #### [facility] [address] [address] [address] Hugh Landis Urea nitrogen [Mass/Vol] 54.0 mg/dL Critically high 7.0-18.0 [facility] Comment on above: Performed By: #### C MP, LIPID, TSH #### [facility] [address] [place] [address] Dr. Hugh Landis Urea nitrogen/Creatinine [Mass ratio] 15.1 mg/mg Normal [facility] Comment on above: Performed By: #### C MP, LIPID, TSH #### [facility] [address] [address] [address] Hugh Landis MRSA COLONIZATION SCREENING CULTUREon 10-09-2021 MRSA Screening Culture Negative Normal [facility] Comment on above: Performed By: #### C MP, LIPID, TSH #### [facility] [address] [place] [address] Dr. Hugh Landis CBC AUTO DIFFon 10-06-2021 BASO # 0.0 103/ul Normal 0.0-0.1 [facility] Comment on above: Performed By: #### U TOMAS, TSH, CMP, LIPID, T7 #### [facility] [address] [address] [address] Hugh Landis Basophils/100 WBC (Bld) 0.3 % Normal 0.2-2.0 [facility] Comment on above: Performed By: #### U TOMAS, TSH, CMP, LIPID, T7 #### [facility] [address] [place] [address] Dr. Hugh Landis EO # 0.1 103/ul Normal 0.0-0.7 [facility] Comment on above: Performed By: #### U TOMAS, TSH, CMP, LIPID, T7 #### [facility] [address] [place] [address] Dr. Hugh Landis Eosinophils/100 WBC (Bld) 2.3 % Normal 0.9-7.0 [facility] Comment on above: Performed By: #### U TOMAS, TSH, CMP, LIPID, T7 #### [facility] [address] [place] [address] Dr. Hugh Landis Erythrocyte distribution width (RBC) [Ratio] 13.3 % Normal 11.0-15.0 [facility] Comment on above: Performed By: #### U TOMAS, TSH, CMP, LIPID, T7 #### [facility] [address] [place] [address] Dr. Hugh Landis Hematocrit (Bld) [Volume fraction] 36.5 % Critically low 42.0-54.0 [facility] Comment on above: Performed By: #### U TOMAS, TSH, CMP, LIPID, T7 #### [facility] [address] [place] [address] Dr. Hugh Landis Hemoglobin (Bld) [Mass/Vol] 11.7 g/dL Critically low 14.0-18.0 [facility] Comment on above: Performed By: #### U TOMAS, TSH, CMP, LIPID, T7 #### [facility] [address] [place] [address] Dr. Hugh Landis IG # 0.02 10e3/ul Normal 0.00-0.03 [facility] Comment on above: Performed By: #### U TOMAS, TSH, CMP, LIPID, T7 #### [facility] [address] [place] [address] Dr. Hugh Landis IG % 0.3 % Normal 0.0-0.5 [facility] Comment on above: Performed By: #### U TOMAS, TSH, CMP, LIPID, T7 #### [facility] [address] [place] [address] Dr. Hugh Landis LYMPH # 1.3 103/ul Normal 1.2-3.8 [facility] Comment on above: Performed By: #### U TOMAS, TSH, CMP, LIPID, T7 #### [facility] [address] [place] [address] Dr. Hugh Landis Lymphocytes/100 WBC (Bld) 21.9 % Normal 20.5-60.0 [facility] Comment on above: Performed By: #### U TOMAS, TSH, CMP, LIPID, T7 #### [facility] [address] [place] [address] Dr. Hugh Landis MANUAL DIFF REQ NO Normal [facility] Comment on above: Performed By: #### U TOMAS, TSH, CMP, LIPID, T7 #### [facility] [address] [place] [address] Dr. Hugh Landis MCH (RBC) [Entitic mass] 29.7 pg Normal 25.9-34.0 [facility] Comment on above: Performed By: #### U TOMAS, TSH, CMP, LIPID, T7 #### [facility] [facility] [address] [place] [address] Dr. Hugh Landis MCHC (RBC) [Mass/Vol] 32.1 g/dL Normal 29.9-35.2 [facility] Comment on above: Performed By: #### U TOMAS, TSH, CMP, LIPID, T7 #### [facility] [address] [place] [address] Dr. Hugh Landis MCV (RBC) [Entitic vol] 92.6 fL Normal 80.0-94.0 [facility] Comment on above: Performed By: #### U TOMAS, TSH, CMP, LIPID, T7 #### [facility] [address] [place] [address] Dr. Hugh Landis MONO # 0.7 103/ul Normal 0.3-0.8 [facility] Comment on above: Performed By: #### U TOMAS, TSH, CMP, LIPID, T7 #### [facility] [address] [place] [address] Dr. Hugh Landis Monocytes/100 WBC (Bld) 11.3 % Normal 1.7-12.0 [facility] Comment on above: Performed By: #### U TOMAS, TSH, CMP, LIPID, T7 #### [facility] [address] [place] [address] Dr. Hugh Landis NEUT # 3.7 103/ul Normal 1.4-6.5 [facility] Comment on above: Performed By: #### U TOMAS, TSH, CMP, LIPID, T7 #### [facility] [address] [place] [address] Dr. Hugh Landis Neutrophils/100 WBC (Bld) 63.9 % Normal 43.0-75.0 [facility] Comment on above: Performed By: #### U TOMAS, TSH, CMP, LIPID, T7 #### [facility] [address] [place] [address] Dr. Hugh Landis Platelet mean volume (Bld) [Entitic vol] 8.9 fL Critically low 9.5-13.5 [facility] Comment on above: Performed By: #### U TOMAS, TSH, CMP, LIPID, T7 #### [facility] [address] [place] [address] Dr. Hugh Landis PLT 257 103/ul Normal 150-450 [facility] Comment on above: Performed By: #### U TOMAS, TSH, CMP, LIPID, T7 #### [facility] [address] [address] [address] Hugh Landis RBC 3.94 106/ul Critically low 4.70-6.10 [facility] Comment on above: Performed By: #### U TOMAS, TSH, CMP, LIPID, T7 #### [facility] [address] [address] [address] Hugh Landis WBC 5.8 103/ul Normal 4.0-11.0 [facility] Comment on above: Performed By: #### U TOMAS, TSH, CMP, LIPID, T7 #### [facility] [address] [address] [address] Hugh Landis GLYCOHEMOGLOBIN A1Con 2021 ADA RECOMMENDATION SEE BELOW Normal [facility] Comment on above: Result Comment: ADA RECOMMENDED LIMIT 4.0 - 6.0 ADA THERAPEUTIC TARGET < 7.0 ACTION SUGGESTED > 7.0 Performed By: #### U TOMAS, TSH, CMP, LIPID, T7 #### [facility] [address] [address] [address] Hugh Landis Glucose [Mass/Vol] 134 mg/dL Normal [facility] Comment on above: Performed By: #### U TOMAS, TSH, CMP, LIPID, T7 #### [facility] [address] [address] [address] Hugh Landis HbA1c (Bld) [Mass fraction] 6.3 % Critically high 4.5-6.2 [facility] Comment on above: Performed By: #### U TOMAS, TSH, CMP, LIPID, T7 #### [facility] [address] [address] [address] Hugh Landis PROF CHEM 8 (BAS METB)on Anion gap [Moles/Vol] 17.6 mmol/L Normal [facility] Comment on above: Performed By: #### C MP, LIPID, TSH #### [facility] [address] [address] [address] Hugh Landis Calcium [Mass/Vol] 9.5 mg/dL Normal 8.5-10.1 [facility] Comment on above: Performed By: #### C MP, LIPID, TSH #### [facility] [address] [address] [address] Hugh Landis Chloride [Moles/Vol] 102 mmol/L Normal 98-107 [facility] Comment on above: Performed By: #### C MP, LIPID, TSH #### [facility] [address] [address] [address] Hugh Landis CO2 [Moles/Vol] 22.2 mmol/L Normal 21.0-32.0 [facility] Comment on above: Performed By: #### C MP, LIPID, TSH #### [facility] [address] [address] [address] Hugh Landis Creatinine [Mass/Vol] 2.94 mg/dL Critically high 0.70-1.30 [facility] Comment on above: Performed By: #### C MP, LIPID, TSH #### [facility] [address] [address] [address] Hugh Landis EGFR-AF KYRGYZ 27 mL/min/1.73m2 Critically low >=60 [facility] Comment on above: Performed By: #### C MP, LIPID, TSH #### [facility] [address] [address] [address] Hugh Landis EGFR-NON AF KYRGYZ 22 mL/min/1.73m2 Critically low >=60 [facility] Comment on above: Performed By: #### C MP, LIPID, TSH #### [facility] [address] [address] [address] Hugh Landis Glucose [Mass/Vol] 234 mg/dL Critically high 74-106 [facility] Comment on above: Performed By: #### C MP, LIPID, TSH #### [facility] [address] [address] [address] Hugh Landis Potassium [Moles/Vol] 5.8 mmol/L Critically high 3.5-5.1 [facility] Comment on above: Performed By: #### C MP, LIPID, TSH #### [facility] [address] [address] [address] Hugh Landis Sodium [Moles/Vol] 136 mmol/L Normal 136-145 [facility] Comment on above: Performed By: #### C MP, LIPID, TSH #### [facility] [address] [place] [address] Dr. Hugh Landis Urea nitrogen [Mass/Vol] 46.0 mg/dL Critically high 7.0-18.0 [facility] Comment on above: Performed By: #### C MP, LIPID, TSH #### [facility] [address] [place] [address] Dr. Hugh Landis Urea nitrogen/Creatinine [Mass ratio] 15.6 mg/mg Normal [facility] Comment on above: Performed By: #### C MP, LIPID, TSH #### [facility] [address] [place] [address] Dr. Hugh Landis PROTIMEon 10-06-2021 INR Coag (PPP) [Relative time] 1.22 {INR} Normal [facility] Comment on above: Performed By: #### U TOMAS, TSH, CMP, LIPID, T7 #### [facility] [address] [place] [address] Dr. Hugh Landis INR GUIDELINES SEE BELOW Normal [facility] Comment on above: Result Comment: VIC RED INR: 2.0 - 3.0 CONDITIONS NOT LISTED BELOW 2.5 - 3.5 FOR PROSTHETIC HEART VALVE REPLACEMENT 2.5 - 3.5 RECURRENT THROMBOSIS Performed By: #### U TOMAS, TSH, CMP, LIPID, T7 #### [facility] [address] [place] [address] Dr. Hugh Landis PT Coag (PPP) [Time] 13.0 s Critically high 9.0-11.6 [facility] Comment on above: Performed By: #### U TOMAS, TSH, CMP, LIPID, T7 #### [facility] [address] [place] [address] Dr. Hugh Landis PTTon 10-06-2021 aPTT Coag (Bld) [Time] 30.6 s Normal 22.3-36.2 [facility] Comment on above: Performed By: #### U TOMAS, TSH, CMP, LIPID, T7 #### [facility] [address] [address] [address] Hugh Landis UA RANDOMon 10-06-2021 Bilirubin Ql (U) Negative Normal NEGATIVE [facility] Comment on above: Performed By: #### C MP, LIPID, TSH #### [facility] [address] [place] [address] Dr. Hugh Landis Clarity (U) CLEAR Normal CLEAR [facility] Comment on above: Performed By: #### C MP, LIPID, TSH #### [facility] [address] [address] [address] Hugh Landis Color (U) LT. YELLOW Normal YELLOW [facility] Comment on above: Performed By: #### C MP, LIPID, TSH #### [facility] [address] [place] [address] Dr. Hugh Landis Glucose Ql (U) Negative Normal NEGATIVE [facility] Comment on above: Performed By: #### C MP, LIPID, TSH #### [facility] [address] [place] [address] Dr. Hugh Landis Hemoglobin Ql (U) Negative Normal NEGATIVE [facility] Comment on above: Performed By: #### C MP, LIPID, TSH #### [facility] [address] [place] [address] Dr. Hugh Landis Ketones Ql (U) Negative Normal NEGATIVE [facility] Comment on above: Performed By: #### C MP, LIPID, TSH #### [facility] [address] [place] [address] Dr. Hugh Landis LEUKOCYTES Negative Normal NEGATIVE [facility] Comment on above: Performed By: #### C MP, LIPID, TSH #### [facility] [address] [place] [address] Dr. Hugh Landis Nitrite Ql (U) Negative Normal NEGATIVE [facility] Comment on above: Performed By: #### C MP, LIPID, TSH #### [facility] [address] [place] [address] Dr. Hugh Landis pH (U) 5.5 [pH] Normal 5-9 [facility] Comment on above: Performed By: #### C MP, LIPID, TSH #### [facility] [address] [place] [address] Dr. Hugh Landis SPEC GRAVITY 1.020 Normal 1.005-<=1.02 5 [facility] Comment on above: Performed By: #### C MP, LIPID, TSH #### [facility] [address] [place] [address] Dr. Hugh Landis UA PROTEIN Negative Normal NEGATIVE/ TRACE [facility] Comment on above: Performed By: #### C MP, LIPID, TSH #### [facility] [address] [place] [address] Dr. Hugh Landis Urobilinogen Qn (U) 0.2 {Dahiana'U}/dL Normal 0.2 - 1. 0 [facility] Comment on above: Performed By: #### C MP, LIPID, TSH #### [facility] [address] [place] [address] Dr. Hugh Landis CBC AUTO DIFFon 09-25-2021 BASO # 0.0 103/ul Normal 0.0-0.1 [facility] Comment on above: Performed By: #### U TOMAS, TSH, CMP, LIPID, T7 #### [facility] [address] [place] [address] Dr. Hugh Landis Basophils/100 WBC (Bld) 0.4 % Normal 0.2-2.0 [facility] Comment on above: Performed By: #### U TOMAS, TSH, CMP, LIPID, T7 #### [facility] [address] [place] [address] Dr. Hugh Landis EO # 0.1 103/ul Normal 0.0-0.7 [facility] Comment on above: Performed By: #### U TOMAS, TSH, CMP, LIPID, T7 #### [facility] [address] [place] [address] Dr. Hugh Landis Eosinophils/100 WBC (Bld) 1.7 % Normal 0.9-7.0 [facility] Comment on above: Performed By: #### U TOMAS, TSH, CMP, LIPID, T7 #### [facility] [address] [place] [address] Dr. Hugh Landis Erythrocyte distribution width (RBC) [Ratio] 13.5 % Normal 11.0-15.0 [facility] Comment on above: Performed By: #### U TOMAS, TSH, CMP, LIPID, T7 #### [facility] [address] [address] [address] Hugh Landis Hematocrit (Bld) [Volume fraction] 36.0 % Critically low 42.0-54.0 [facility] Comment on above: Performed By: #### U TOMAS, TSH, CMP, LIPID, T7 #### [facility] [address] [address] [address] Hugh Landis Hemoglobin (Bld) [Mass/Vol] 11.7 g/dL Critically low 14.0-18.0 [facility] Comment on above: Performed By: #### U TOMAS, TSH, CMP, LIPID, T7 #### [facility] [address] [place] [address] Dr. Hugh Landis IG # 0.02 10e3/ul Normal 0.00-0.03 [facility] Comment on above: Performed By: #### U TOMAS, TSH, CMP, LIPID, T7 #### [facility] [address] [address] [address] Hugh Landis IG % 0.3 % Normal 0.0-0.5 [facility] Comment on above: Performed By: #### U TOMAS, TSH, CMP, LIPID, T7 #### [facility] [address] [address] [address] Hugh Landis LYMPH # 1.3 103/ul Normal 1.2-3.8 [facility] Comment on above: Performed By: #### U TOMAS, TSH, CMP, LIPID, T7 #### [facility] [address] [address] [address] Hugh Landis Lymphocytes/100 WBC (Bld) 18.3 % Critically low 20.5-60.0 [facility] Comment on above: Performed By: #### U TOMAS, TSH, CMP, LIPID, T7 #### [facility] [address] [place] [address] Dr. Hugh Landis MANUAL DIFF REQ NO Normal [facility] Comment on above: Performed By: #### U TOMAS, TSH, CMP, LIPID, T7 #### [facility] [address] [place] [address] Dr. Hugh Landis MCH (RBC) [Entitic mass] 29.4 pg Normal 25.9-34.0 [facility] Comment on above: Performed By: #### U TOMAS, TSH, CMP, LIPID, T7 #### [facility] [address] [place] [address] Dr. Hugh Landis MCHC (RBC) [Mass/Vol] 32.5 g/dL Normal 29.9-35.2 [facility] Comment on above: Performed By: #### U TOMAS, TSH, CMP, LIPID, T7 #### [facility] [address] [place] [address] Dr. Hugh Landis MCV (RBC) [Entitic vol] 90.5 fL Normal 80.0-94.0 [facility] Comment on above: Performed By: #### U TOMAS, TSH, CMP, LIPID, T7 #### [facility] [address] [place] [address] Dr. Hugh Landis MONO # 0.6 103/ul Normal 0.3-0.8 [facility] Comment on above: Performed By: #### U TOMAS, TSH, CMP, LIPID, T7 #### [facility] [address] [place] [address] Dr. Hugh Landis Monocytes/100 WBC (Bld) 8.6 % Normal 1.7-12.0 [facility] Comment on above: Performed By: #### U TOMAS, TSH, CMP, LIPID, T7 #### [facility] [address] [place] [address] Dr. Hugh Landis NEUT # 4.9 103/ul Normal 1.4-6.5 [facility] Comment on above: Performed By: #### U TOMAS, TSH, CMP, LIPID, T7 #### [facility] [address] [place] [address] Dr. Hugh Landis Neutrophils/100 WBC (Bld) 70.7 % Normal 43.0-75.0 [facility] Comment on above: Performed By: #### U TOMAS, TSH, CMP, LIPID, T7 #### [facility] [address] [address] [address] Hugh Landis Platelet mean volume (Bld) [Entitic vol] 8.8 fL Critically low 9.5-13.5 [facility] Comment on above: Performed By: #### U TOMAS, TSH, CMP, LIPID, T7 #### [facility] [address] [place] [address] Dr. Hugh Landis PLT 270 103/ul Normal 150-450 [facility] Comment on above: Performed By: #### U TOMAS, TSH, CMP, LIPID, T7 #### [facility] [address] [place] [address] Dr. Hugh Landis RBC 3.98 106/ul Critically low 4.70-6.10 [facility] Comment on above: Performed By: #### U TOMAS, TSH, CMP, LIPID, T7 #### [facility] [address] [place] [address] Dr. Hugh Landis WBC 6.9 103/ul Normal 4.0-11.0 [facility] Comment on above: Performed By: #### U TOMAS, TSH, CMP, LIPID, T7 #### [facility] [address] [place] [address] Dr. Hugh Landis CRPon 09-25-2021 CRP [Mass/Vol] mg/L Normal <=1.0 [facility] Comment on above: Performed By: #### P T #### [facility] [address] [place] [address] Dr. Hugh Landis CULTURE BLOODon 09-25-2021 Microscopic examination of blood, culture Culture Observations: NO GROWTH AT 5 DAYS. Normal [facility] Comment on above: Performed By: #### B MP #### [facility] [address] [place] [address] Dr. Hugh Landis Microscopic examination of blood, culture Culture Observations: NO GROWTH AT 5 DAYS. Normal [facility] Comment on above: Performed By: #### B MP #### [facility] [address] [address] [address] Hugh Landis IRONon 09-25-2021 Iron [Mass/Vol] 62.0 ug/dL Critically low 65.0-175.0 [facility] Comment on above: Performed By: #### B MP #### [facility] [address] [place] [address] Dr. Hugh Landis SED RATE WESTERGRENon 2021 SED RATE 102 mm/hr Critically high <=20 [facility] Comment on above: Performed By: #### C MP, LIPID, TSH #### [facility] [address] [place] [address] Dr. Hugh Landis NM BONE IMAGE 3 [...] OBIE TSE Date: 2021-09-05 16:15 Normal [facility] CREATININEon 08-25-2021 Creatinine [Mass/Vol] 1.92 mg/dL Critically high 0.70-1.30 [facility] Comment on above: Performed By: #### C MP, LIPID, TSH #### [facility] [address] [address] [address] Hugh Landis EGFR-AF KYRGYZ 44 mL/min/1.73m2 Critically low >=60 [facility] Comment on above: Performed By: #### C MP, LIPID, TSH #### [facility] [address] [place] [address] Dr. Hugh Landis EGFR-NON AF KYRGYZ 36 mL/min/1.73m2 Critically low >=60 [facility] Comment on above: Performed By: #### C MP, LIPID, TSH #### [facility] [address] [place] [address] Dr. Hugh Landis CTA CHEST WO W [...] OBIE TSE Date: 2021-08-25 10:16 Normal [facility] CBC AUTO DIFFon 08-18-2021 BASO # 0.0 103/ul Normal 0.0-0.1 [facility] Comment on above: Performed By: #### C MP, LIPID, TSH #### [facility] [address] [place] [address] Dr. Hugh Landis Basophils/100 WBC (Bld) 0.4 % Normal 0.2-2.0 [facility] Comment on above: Performed By: #### C MP, LIPID, TSH #### [facility] [address] [place] [address] Dr. Hugh Landis EO # 0.1 103/ul Normal 0.0-0.7 [facility] Comment on above: Performed By: #### C MP, LIPID, TSH #### [facility] [address] [address] [address] Hugh Landis Eosinophils/100 WBC (Bld) 1.8 % Normal 0.9-7.0 [facility] Comment on above: Performed By: #### C MP, LIPID, TSH #### [facility] [address] [place] [address] Dr. Hugh Landis Erythrocyte distribution width (RBC) [Ratio] 13.3 % Normal 11.0-15.0 [facility] Comment on above: Performed By: #### C MP, LIPID, TSH #### [facility] [address] [place] [address] Dr. Hugh Landis Hematocrit (Bld) [Volume fraction] 34.7 % Critically low 42.0-54.0 [facility] Comment on above: Performed By: #### C MP, LIPID, TSH #### [facility] [address] [place] [address] Dr. Hugh Landis Hemoglobin (Bld) [Mass/Vol] 11.3 g/dL Critically low 14.0-18.0 [facility] Comment on above: Performed By: #### C MP, LIPID, TSH #### [facility] [address] [place] [address] Dr. Hugh Landis IG # 0.05 10e3/ul Critically high 0.00-0.03 [facility] Comment on above: Performed By: #### C MP, LIPID, TSH #### [facility] [address] [place] [address] Dr. Hugh Landis IG % 0.7 % Critically high 0.0-0.5 [facility] Comment on above: Performed By: #### C MP, LIPID, TSH #### [facility] [address] [place] [address] Dr. Hugh Landis LYMPH # 1.1 103/ul Critically low 1.2-3.8 [facility] Comment on above: Performed By: #### C MP, LIPID, TSH #### [facility] [address] [place] [address] Dr. Hugh Landis Lymphocytes/100 WBC (Bld) 16.0 % Critically low 20.5-60.0 [facility] Comment on above: Performed By: #### C MP, LIPID, TSH #### [facility] [address] [place] [address] Dr. Hugh Landis MANUAL DIFF REQ NO Normal [facility] Comment on above: Performed By: #### C MP, LIPID, TSH #### [facility] [address] [place] [address] Dr. Hugh Landis MCH (RBC) [Entitic mass] 29.7 pg Normal 25.9-34.0 [facility] Comment on above: Performed By: #### C MP, LIPID, TSH #### [facility] [address] [place] [address] Dr. Hugh Landis MCHC (RBC) [Mass/Vol] 32.6 g/dL Normal 29.9-35.2 [facility] Comment on above: Performed By: #### C MP, LIPID, TSH #### [facility] [address] [place] [address] Dr. Hugh Landis MCV (RBC) [Entitic vol] 91.3 fL Normal 80.0-94.0 [facility] Comment on above: Performed By: #### C MP, LIPID, TSH #### [facility] [address] [place] [address] Dr. Hugh Landis MONO # 0.7 103/ul Normal 0.3-0.8 [facility] Comment on above: Performed By: #### C MP, LIPID, TSH #### [facility] [address] [place] [address] Dr. Hugh Landis Monocytes/100 WBC (Bld) 9.7 % Normal 1.7-12.0 [facility] Comment on above: Performed By: #### C MP, LIPID, TSH #### [facility] [address] [place] [address] Dr. Hugh Landis NEUT # 4.9 103/ul Normal 1.4-6.5 [facility] Comment on above: Performed By: #### C MP, LIPID, TSH #### [facility] [address] [address] [address] Hugh Landis Neutrophils/100 WBC (Bld) 71.4 % Normal 43.0-75.0 [facility] Comment on above: Performed By: #### C MP, LIPID, TSH #### [facility] [address] [place] [address] Dr. Hugh Landis Platelet mean volume (Bld) [Entitic vol] 9.0 fL Critically low 9.5-13.5 [facility] Comment on above: Performed By: #### C MP, LIPID, TSH #### [facility] [address] [address] [address] Hugh Landis PLT 264 103/ul Normal 150-450 [facility] Comment on above: Performed By: #### C MP, LIPID, TSH #### [facility] [address] [place] [address] Dr. Hugh Landis RBC 3.80 106/ul Critically low 4.70-6.10 [facility] Comment on above: Performed By: #### C MP, LIPID, TSH #### [facility] [address] [place] [address] Dr. Hugh Landis WBC 6.8 103/ul Normal 4.0-11.0 [facility] Comment on above: Performed By: #### C MP, LIPID, TSH #### [facility] [address] [place] [address] Dr. Hugh Landis PROF 14(COMP METB)on 022 Albumin [Mass/Vol] 3.5 g/dL Normal 3.4-5.0 [facility] Comment on above: Performed By: #### U TOMAS, TSH, CMP, LIPID, T7 #### [facility] [address] [address] [address] Hugh Landis Albumin/Globulin [Mass ratio] 0.8 {ratio} Normal [facility] Comment on above: Performed By: #### U TOMAS, TSH, CMP, LIPID, T7 #### [facility] [address] [place] [address] Dr. Hugh Landis ALP [Catalytic activity/Vol] 63 U/L Normal 46-116 [facility] Comment on above: Performed By: #### U TOMAS, TSH, CMP, LIPID, T7 #### [facility] [address] [address] [address] Hugh Landis ALT [Catalytic activity/Vol] 26 U/L Normal 16-63 [facility] Comment on above: Performed By: #### U TOMAS, TSH, CMP, LIPID, T7 #### [facility] [address] [address] [address] Hugh Landis Anion gap [Moles/Vol] 12.7 mmol/L Normal [facility] [facility] Comment on above: Performed By: #### U TOMAS, TSH, CMP, LIPID, T7 #### [facility] [address] [place] [address] Dr. Hugh Landis AST [Catalytic activity/Vol] 14 U/L Critically low 15-37 [facility] Comment on above: Performed By: #### U TOMAS, TSH, CMP, LIPID, T7 #### [facility] [address] [address] [address] Hugh Landis Bilirubin [Mass/Vol] 0.3 mg/dL Normal 0.2-1.0 [facility] Comment on above: Performed By: #### U TOMAS, TSH, CMP, LIPID, T7 #### [facility] [address] [place] [address] Dr. Hugh Lanids Calcium [Mass/Vol] 9.2 mg/dL Normal 8.5-10.1 [facility] Comment on above: Performed By: #### U TOMAS, TSH, CMP, LIPID, T7 #### [facility] [address] [place] [address] Dr. Hugh Landis Chloride [Moles/Vol] 105 mmol/L Normal 98-107 [facility] Comment on above: Performed By: #### U TOMAS, TSH, CMP, LIPID, T7 #### [facility] [address] [place] [address] Dr. Hugh Landis CO2 [Moles/Vol] 25.5 mmol/L Normal 21.0-32.0 [facility] Comment on above: Performed By: #### U TOMAS, TSH, CMP, LIPID, T7 #### [facility] [address] [place] [address] Dr. Hugh Landis Creatinine [Mass/Vol] 2.46 mg/dL Critically high 0.70-1.30 [facility] Comment on above: Performed By: #### U TOMAS, TSH, CMP, LIPID, T7 #### [facility] [address] [place] [address] Dr. Hugh Landis EGFR-AF KYRGYZ 33 mL/min/1.73m2 Critically low >=60 [facility] Comment on above: Performed By: #### U TOMAS, TSH, CMP, LIPID, T7 #### [facility] [address] [place] [address] Dr. Hugh Landis EGFR-NON AF KYRGYZ 27 mL/min/1.73m2 Critically low >=60 [facility] Comment on above: Performed By: #### U TOMAS, TSH, CMP, LIPID, T7 #### [facility] [address] [place] [address] Dr. Hugh Landis Globulin (S) [Mass/Vol] 4.5 g/dL Normal [facility] Comment on above: Performed By: #### U TOMAS, TSH, CMP, LIPID, T7 #### [facility] [address] [place] [address] Dr. Hugh Landis Glucose [Mass/Vol] 119 mg/dL Critically high 74-[address] [facility] Comment on above: Performed By: #### U TOMAS, TSH, CMP, LIPID, T7 #### [facility] [address] [place] [address] Dr. Hugh Landis Potassium [Moles/Vol] 4.2 mmol/L Normal 3.5-5.1 [facility] Comment on above: Performed By: #### U TOMAS, TSH, CMP, LIPID, T7 #### [facility] [address] [place] [address] Dr. Hugh Landis Protein [Mass/Vol] 8.0 g/dL Normal 6.4-8.2 [facility] Comment on above: Performed By: #### U TOMAS, TSH, CMP, LIPID, T7 #### [facility] [address] [id number] Hugh Landis Sodium [Moles/Vol] 139 mmol/L Normal 136-145 [facility] Comment on above: Performed By: #### U TOMAS, TSH, CMP, LIPID, T7 #### [facility] [address] [id number] [address] Hugh Landis Urea nitrogen [Mass/Vol] 49.0 mg/dL Critically high 7.0-18.0 [facility] Comment on above: Performed By: #### U TOMAS, TSH, CMP, LIPID, T7 #### [facility] [address] [id number] [address] Hugh Landis Urea nitrogen/Creatinine [Mass ratio] 19.9 mg/mg Normal [facility] Comment on above: Performed By: #### U TOMAS, TSH, CMP, LIPID, T7 #### [facility] [address] [address] [address] Hugh Landis TESTOSTERONE, FREE,DIRECT, T OTALon 08-14-2021 Free Testosterone(Direct) 5.9 pg/mL Critically low 7.2-24.0 [facility] Comment on above: Result Comment: Perf ormed at: BN Performed By: #### B MP #### [facility] [address] [place] [address] Dr. Hugh Landis Testosterone [Mass/Vol] 392 ng/dL Normal 264-916 [facility] Comment on above: Result Comment: Adul t male reference interval is based on a population of healthy nonobese males (BMI <30) between 19 and 39 years old. Gavi et.al. JCEM 2017,102;9604-7395. PMID: [id number]. Performed at: CB Performed By: #### B MP #### [facility] [address] [place], [place] [id number] Dr. Hugh Landis VITAMIN B1 (THIAMINE)on 07-27 Vit. B1, Whole Blood 145.1 nmol/L Normal 66.5-200.0 [facility] Comment on above: Performed By: #### C MP, LIPID, TSH #### [facility] [address] [address] [address] Hugh Landis VITAMIN Aon 08-13-2021 Vitamin A 82.7 ug/dL Critically high 20.1-62.0 [facility] Comment on above: [...] Administration. Performed By: #### P T #### [facility] [address] [place] [address] Dr. Hugh Landis ZINC SERUM OR PLASMAon 08-10 Zinc, Plasma or Serum 78 ug/dL Normal 44-115 [facility] Comment on above: Result Comment: Dete ction Limit = 5 Performed By: #### C MP, LIPID, TSH #### [facility] [address] [place] [address] Dr. Hugh Landis FOLATE ([facility])on 2 Folate 12.9 ng/mL Normal >3.0 [facility] Comment on above: Result Comment: A se rum folate concentration of less than 3.1 ng/mL is considered to represent clinical deficiency. Performed By: #### P TT #### [facility] [address] [place] [address] Dr. Hugh Landis PTH INTACTon 08-09-2021 PTH, Intact 29 pg/mL Normal 15-65 [facility] Comment on above: Performed By: #### P TT #### [facility] [address] [place] [address] Dr. Hugh Landis CBC AUTO DIFFon 08-08-2021 BASO # 0.0 103/ul Normal 0.0-0.1 [facility] Comment on above: Performed By: #### C MP, LIPID, TSH #### [facility] [address] [place] [address] Dr. Hugh Landis Basophils/100 WBC (Bld) 0.6 % Normal 0.2-2.0 [facility] Comment on above: Performed By: #### C MP, LIPID, TSH #### [facility] [address] [place] [address] Dr. Hugh Landis EO # 0.2 103/ul Normal 0.0-0.7 [facility] Comment on above: Performed By: #### C MP, LIPID, TSH #### [facility] [address] [place] [address] Dr. Hugh Landis Eosinophils/100 WBC (Bld) 2.2 % Normal 0.9-7.0 [facility] Comment on above: Performed By: #### C MP, LIPID, TSH #### [facility] [address] [place] [address] Dr. Hugh Landis Erythrocyte distribution width (RBC) [Ratio] 13.4 % Normal 11.0-15.0 [facility] Comment on above: Performed By: #### C MP, LIPID, TSH #### [facility] [address] [place] [address] Dr. Hugh Landis Hematocrit (Bld) [Volume fraction] 38.2 % Critically low 42.0-54.0 [facility] Comment on above: Performed By: #### C MP, LIPID, TSH #### [facility] [address] [place] [address] Dr. Hugh Landis Hemoglobin (Bld) [Mass/Vol] 11.8 g/dL Critically low 14.0-18.0 [facility] Comment on above: Performed By: #### C MP, LIPID, TSH #### [facility] [address] [place] [address] Dr. Hugh Landis IG # 0.03 10e3/ul Normal 0.00-0.03 [facility] Comment on above: Performed By: #### C MP, LIPID, TSH #### [facility] [address] [place] [address] Dr. Hugh Landis IG % 0.4 % Normal 0.0-0.5 [facility] Comment on above: Performed By: #### C MP, LIPID, TSH #### [facility] [address] [place] [address] Dr. Hugh Landis LYMPH # 1.0 103/ul Critically low 1.2-3.8 [facility] Comment on above: Performed By: #### C MP, LIPID, TSH #### [facility] [address] [place] [address] Dr. Hugh Landis Lymphocytes/100 WBC (Bld) 14.9 % Critically low 20.5-60.0 [facility] Comment on above: Performed By: #### C MP, LIPID, TSH #### [facility] [address] [place] [address] Dr. Hugh Landis MANUAL DIFF REQ NO Normal [facility] Comment on above: Performed By: #### C MP, LIPID, TSH #### [facility] [address] [place] [address] Dr. Hugh Landis MCH (RBC) [Entitic mass] 28.5 pg Normal 25.9-34.0 [facility] Comment on above: Performed By: #### C MP, LIPID, TSH #### [facility] [address] [place] [address] Dr. Hugh Landis MCHC (RBC) [Mass/Vol] 30.9 g/dL Normal 29.9-35.2 [facility] Comment on above: Performed By: #### C MP, LIPID, TSH #### [facility] [address] [place] [address] Dr. Hugh Landis MCV (RBC) [Entitic vol] 92.3 fL Normal 80.0-94.0 [facility] Comment on above: Performed By: #### C MP, LIPID, TSH #### [facility] [address] [place] [address] Dr. Hugh Landis MONO # 0.7 103/ul Normal 0.3-0.8 [facility] Comment on above: Performed By: #### C MP, LIPID, TSH #### [facility] [address] [place] [address] Dr. Hugh Landis Monocytes/100 WBC (Bld) 10.6 % Normal 1.7-12.0 [facility] Comment on above: Performed By: #### C MP, LIPID, TSH #### [facility] [address] [address] [address] Hugh Landis NEUT # 4.9 103/ul Normal 1.4-6.5 [facility] Comment on above: Performed By: #### C MP, LIPID, TSH #### [facility] [address] [address] [address] Hugh Landis Neutrophils/100 WBC (Bld) 71.3 % Normal 43.0-75.0 [facility] Comment on above: Performed By: #### C MP, LIPID, TSH #### [facility] [address] [address] [address] Hugh Landis Platelet mean volume (Bld) [Entitic vol] 9.4 fL Critically low 9.5-13.5 [facility] Comment on above: Performed By: #### C MP, LIPID, TSH #### [facility] [address] [address] [address] Hugh Landis PLT 249 103/ul Normal 150-450 [facility] Comment on above: Performed By: #### C MP, LIPID, TSH #### [facility] [address] [address] [address] Hugh Landis RBC 4.14 106/ul Critically low 4.70-6.10 [facility] Comment on above: Performed By: #### C MP, LIPID, TSH #### [facility] [address] [address] [address] Hugh Landis WBC 6.9 103/ul Normal 4.0-11.0 [facility] Comment on above: Performed By: #### C MP, LIPID, TSH #### [facility] [address] [address] [address] Hugh Landis FERRITINon 08-08-2021 Ferritin [Mass/Vol] 154.0 ng/mL Normal 26.0-388.0 [facility] Comment on above: Performed By: #### C MP, LIPID, TSH #### [facility] [address] [address] [address] Hugh Landis GLYCOHEMOGLOBIN A1Con 2021 ADA RECOMMENDATION SEE BELOW Normal [facility] Comment on above: Result Comment: ADA RECOMMENDED LIMIT 4.0 - 6.0 ADA THERAPEUTIC TARGET < 7.0 ACTION SUGGESTED > 7.0 Performed By: #### P T #### [facility] [address] [place] [address] Dr. Hugh Landis Glucose [Mass/Vol] 140 mg/dL Normal [facility] Comment on above: Performed By: #### P T #### [facility] [address] [address] [address] Hugh Landis HbA1c (Bld) [Mass fraction] 6.5 % Critically high 4.5-6.2 [facility] Comment on above: Performed By: #### P T #### [facility] [address] [place] [address] Dr. Hugh Landis IRON AND TIBCon 08-08-2021 % SATURATION 13.6 % Normal [facility] Comment on above: Performed By: #### C MP, LIPID, TSH #### [facility] [address] [place] [address] Dr. Hugh Landis Iron [Mass/Vol] 45.0 ug/dL Critically low 65.0-175.0 [facility] Comment on above: Performed By: #### C MP, LIPID, TSH #### [facility] [address] [place] [address] Dr. Hugh Landis TIBC DIRECT 332.0 ug/dL Normal 250.0-450.0 [facility] Comment on above: Performed By: #### C MP, LIPID, TSH #### [facility] [address] [place] [address] Dr. Hugh Landis LIPID PROFILEon 08-08-2021 CHOL-HDL RATIO NORM SEE BELOW Normal [facility] Comment on above: Result Comment: 3.3 - 4.4 LOW RISK 4.4 - 7.1 AVERAGE RISK 7.1 - 11.0 MODERATE RISK >11.0 HIGH RISK Performed By: #### C MP, LIPID, TSH #### [facility] [address] [place] [address] Dr. Hugh Landis Cholesterol [Mass/Vol] 187 mg/dL Normal <=200 [facility] Comment on above: Performed By: #### C MP, LIPID, TSH #### [facility] [address] [address] [address] Hugh Landis Cholesterol in HDL [Mass/Vol] 51 mg/dL Normal 40-60 [facility] Comment on above: Performed By: #### C MP, LIPID, TSH #### [facility] [address] [address] [address] Hugh Landis Cholesterol in LDL [Mass/Vol] 101.8 mg/dL Normal [facility] Comment on above: Performed By: #### C MP, LIPID, TSH #### [facility] [address] [place] [address] Dr. Hugh Landis Cholesterol.total/Ch olesterol in HDL [Mass ratio] 3.7 {ratio} Normal [facility] Comment on above: Performed By: #### C MP, LIPID, TSH #### [facility] [address] [address] [address] Hugh Landis HDL NORMAL > or = 60 mg/dl - LO W CARDIOVASCULAR RISK <40 mg/dl - HIGH CARDIOVASCULAR RISK Normal [facility] Comment on above: Performed By: #### C MP, LIPID, TSH #### [facility] [address] [place] [address] Dr. Hugh Landis LDL CALC NORMAL SEE BELOW Normal [facility] Comment on above: Result Comment: <100 mg/dl OPTIMAL 100 - 129 mg/dl NEAR OR ABOVE OPTIMAL 130 - 159 mg/dl BORDERLINE HIGH 160 - 189 mg/dl HIGH >190 mg/dl VERY HIGH Performed By: #### C MP, LIPID, TSH #### [facility] [address] [address] [address] Hugh Landis Triglyceride [Mass/Vol] 171 mg/dL Critically high <=150 [facility] Comment on above: Performed By: #### C MP, LIPID, TSH #### [facility] [address] [address] [address] Hugh Landis VLDL CALC 34.2 mg/dL Normal [facility] Comment on above: Performed By: #### C MP, LIPID, TSH #### [facility] [address] [address] [address] Hugh Landis PROF 14(COMP METB)on 022 Albumin [Mass/Vol] 3.6 g/dL Normal 3.4-5.0 [facility] Comment on above: Performed By: #### C MP, LIPID, TSH #### [facility] [address] [address] [address] Hugh Landis Albumin/Globulin [Mass ratio] 0.8 {ratio} Normal [facility] Comment on above: Performed By: #### C MP, LIPID, TSH #### [facility] [address] [address] [address] Hugh Landis ALP [Catalytic activity/Vol] 64 U/L Normal 46-116 [facility] Comment on above: Performed By: #### C MP, LIPID, TSH #### [facility] [address] [place] [address] Dr. Hugh Landis ALT [Catalytic activity/Vol] 28 U/L Normal 16-63 [facility] Comment on above: Performed By: #### C MP, LIPID, TSH #### [facility] [address] [place] [address] Dr. Hugh Landis Anion gap [Moles/Vol] 15.0 mmol/L Normal [facility] Comment on above: Performed By: #### C MP, LIPID, TSH #### [facility] [address] [address] [address] Hugh Landis AST [Catalytic activity/Vol] 14 U/L Critically low 15-37 [facility] Comment on above: Performed By: #### C MP, LIPID, TSH #### [facility] [address] [address] [address] Hugh Landis Bilirubin [Mass/Vol] 0.5 mg/dL Normal 0.2-1.0 [facility] Comment on above: Performed By: #### C MP, LIPID, TSH #### [facility] [address] [place] [address] Dr. Hugh Landis Calcium [Mass/Vol] 9.6 mg/dL Normal 8.5-10.1 [facility] Comment on above: Performed By: #### C MP, LIPID, TSH #### [facility] [address] [place] [address] Dr. Hugh Landis Chloride [Moles/Vol] 105 mmol/L Normal 98-107 [facility] Comment on above: Performed By: #### C MP, LIPID, TSH #### [facility] [address] [place] [address] Dr. Hugh Landis CO2 [Moles/Vol] 23.5 mmol/L Normal 21.0-32.0 [facility] Comment on above: Performed By: #### C MP, LIPID, TSH #### [facility] [address] [place] [address] Dr. Hugh Landis Creatinine [Mass/Vol] 2.69 mg/dL Critically high 0.70-1.30 [facility] Comment on above: Performed By: #### C MP, LIPID, TSH #### [facility] [address] [place] [address] Dr. Hugh Landis EGFR-AF KYRGYZ 30 mL/min/1.73m2 Critically low >=60 [facility] Comment on above: Performed By: #### C MP, LIPID, TSH #### [facility] [address] [place] [address] Dr. Hugh Landis EGFR-NON AF KYRGYZ 25 mL/min/1.73m2 Critically low >=60 [facility] Comment on above: Performed By: #### C MP, LIPID, TSH #### [facility] [address] [place] [address] Dr. Hugh Landis Globulin (S) [Mass/Vol] 4.3 g/dL Normal [facility] Comment on above: Performed By: #### C MP, LIPID, TSH #### [facility] [address] [place] [address] Dr. Hugh Landis Glucose [Mass/Vol] 80 mg/dL Normal 74-106 [facility] Comment on above: Performed By: #### C MP, LIPID, TSH #### [facility] [address] [address] [address] Hugh Landis Potassium [Moles/Vol] 5.5 mmol/L Critically high 3.5-5.1 [facility] Comment on above: Performed By: #### C MP, LIPID, TSH #### [facility] [address] [place] [address] Dr. Hugh Landis Protein [Mass/Vol] 7.9 g/dL Normal 6.4-8.2 [facility] Comment on above: Performed By: #### C MP, LIPID, TSH #### [facility] [address] [place] [address] Dr. Hugh Landis Sodium [Moles/Vol] 138 mmol/L Normal 136-145 [facility] Comment on above: Performed By: #### C MP, LIPID, TSH #### [facility] [address] [place] [address] Dr. Hugh Landis Urea nitrogen [Mass/Vol] 47.0 mg/dL Critically high 7.0-18.0 [facility] Comment on above: Performed By: #### C MP, LIPID, TSH #### [facility] [address] [place] [address] Dr. Hugh Landis Urea nitrogen/Creatinine [Mass ratio] 17.5 mg/mg Normal [facility] Comment on above: Performed By: #### C MP, LIPID, TSH #### [facility] [address] [place] [address] Dr. Hugh Landis TSHon 08-08-2021 TSH 1.069 uIU/mL Normal 0.358-3.740 [facility] Comment on above: Performed By: #### C MP, LIPID, TSH #### [facility] [address] [place] [address] Dr. Hugh Landis TSH RANGE SEE BELOW Normal [facility] Comment on above: Result Comment: <0.3 4 UIU/ml HYPERTHYROID 0.34-5.60 UIU/ml EUTHYROID >5.60 UIU/ml HYPOTHYROID Performed By: #### C MP, LIPID, TSH #### [facility] [address] [place] [address] Dr. Hugh Landis VITAMIN B12on 08-08-2021 Cobalamin (Vitamin B12) [Mass/Vol] 336.0 pg/mL Normal 193.0-986.0 [facility] Comment on above: Performed By: #### C MP, LIPID, TSH #### [facility] [address] [address] [address] Hugh Landis VITAMIN D 25 OHon 08-08-2021 VIT D 25-OH 36.6 ng/mL Normal [facility] Comment on above: Performed By: #### C MP, LIPID, TSH #### [facility] [address] [address] [address] Hugh Landis VIT D RANGES SEE BELOW Normal [facility] Comment on above: Result Comment: <20 ng/mL Vit D deficient 20 - <30 ng/mL Vit D insufficient 30 - 100 ng/mL Vit D sufficient >100 ng/mL Potential Toxicity Performed By: #### C MP, LIPID, TSH #### [facility] [address] [address] [address] Hugh Landis KNEE RIGHT 3 VWSon 2 KNEE RIGHT 3 S [facility] Department of Radiology [address] [place] [id number] ======== Patient Name: SUKHDEEP SIMENTAL : [...] disruption. Electronically signed: Cole Richmond. Transcribed by: [email or web address], User Resident: Electronically Signed by: COLE RICHMOND @ 07/23/2021 10:50 PM Normal [facility] Comment on above: Order Comment: Evalu ate CBCon 07-18-2021 Erythrocyte distribution width (RBC) [Ratio] 13.5 % Normal 11.8-14.4 [facility] Comment on above: Performed By: #### C BC, PT, PTT, BMP #### [address] [place] [address] [employer] W[employer] Helper: Good Melendez MD #### ANICOT #### [facility] [address] [place], [place] [id number] [employer] Helper: Troy Link MD Hematocrit (Bld) [Volume fraction] 39.1 % Low 40.7-50.3 [facility] Comment on above: Performed By: #### C BC, PT, PTT, BMP #### [address] [place] [address] [employer] Helper: Good Melendez MD #### ANICOT #### [facility] [address] [place] [address] [employer] Helper: Troy Link MD Hemoglobin (Bld) [Mass/Vol] 12.3 g/dL Low 13.0-17.0 [facility] Comment on above: Performed By: #### C BC, PT, PTT, BMP #### [address] [address] [employer]: Good Melendez MD #### ANICOT #### [facility] [address] [place] [address] [employer] Helper: Troy Link MD MCH (RBC) [Entitic mass] 28.8 pg Normal 25.2-33.5 [facility] Comment on above: Performed By: #### C BC, PT, PTT, BMP #### [address] [address] [employer]per: Good Melendez MD #### ANICOT #### [facility] [address] [place] [address] [employer] Helper: Troy Link MD MCHC (RBC) [Mass/Vol] 31.5 g/dL Normal 28.4-34.8 [facility] Comment on above: Performed By: #### C BC, PT, PTT, BMP #### [facility] [address] [place] [address] [employer] Helper: Good Melendez MD #### ANICOT #### [facility] [address] [place] [address] [employer] Helper: Troy Link MD MCV (RBC) [Entitic vol] 91.6 fL Normal 82.6-102.9 [facility] Comment on above: Performed By: #### C BC, PT, PTT, BMP #### [address] [address] [employer]per: Good Melendez MD #### ANICOT #### [facility] [address] [place], [place] [id number] [employer]per: Troy Link MD NRBC Automated 0.0 per 100 WBC Normal 0.0 [facility] Comment on above: Performed By: #### C BC, PT, PTT, BMP #### [address] [address] [employer]inder Helper: Good Melendez MD #### ANICOT #### [facility] [address] [place], [place] [id number] [employer] Winder Helper: Troy Link MD Platelet mean volume (Bld) [Entitic vol] 9.7 fL Normal 8.1-13.5 [facility] Comment on above: Performed By: #### C BC, PT, PTT, BMP #### [address] [address] [employer] Winder Helper: Good Melendez MD #### ANICOT #### [facility] [address] [place] [address] [employer] Winder Helper: Troy Link MD Platelets (Bld) [#/Vol] 190 10*3/uL Normal 138-453 [facility] Comment on above: Performed By: #### C BC, PT, PTT, BMP #### [address] [address] [employer] Winder Helper: Good Melendez MD #### ANICOT #### [facility] [address] [place], [place] [id number] [employer] Winder Helper: Troy Link MD RBC (Bld) [#/Vol] 4.27 10*6/uL Normal 4.21-5.77 [facility] Comment on above: Performed By: #### C BC, PT, PTT, BMP #### [facility] [address] [place] [address] [employer] Winder Helper: Good Melendez MD #### ANICOT #### [facility] [address] [place], [place] [id number] [employer] Winder Helper: Troy Link MD WBC (Bld) [#/Vol] 8.7 10*3/uL Normal 3.5-11.3 [facility] Comment on above: Performed By: #### C BC, PT, PTT, BMP #### [address] [address] [employer] Winder Helper: Good Melendez MD #### ANICOT #### [facility] [address] [place] [address] [employer] Winder Helper: Troy Link MD APTTon 07-17-2021 aPTT Coag (Bld) [Time] 20.8 s Normal 20.5-30.5 [facility] Comment on above: Result Comment: IV Heparin Therapy Range: 48.6-77.8 Performed By: #### C BC, PT, PTT, BMP #### [address] [address] [employer] Winder Helper: Good Melendez MD #### ANICOT #### [facility] [address] [place], [place] [id number] [employer] Winder Helper: Troy Link MD aPTT Coag (Bld) [Time] 37.9 s High 20.5-30.5 [facility] Comment on above: Result Comment: IV Heparin Therapy Range: 48.6-77.8 Performed By: #### C BC, PT, PTT, BMP #### [facility] [address] [place] [address] [employer] Winder Helper: Good Melendez MD #### ANICOT #### [facility] [address] [place] [address] [employer] Winder Helper: Troy Link MD aPTT Coag (Bld) [Time] 78.1 s High 20.5-30.5 [facility] Comment on above: Result Comment: IV Heparin Therapy Range: 48.6-77.8 Performed By: #### C BC, PT, PTT, BMP #### [address] [id number] [employer] Winder Helper: Good Melendez MD #### ANICOT #### [facility] [address] [place] [address] Sp[employer] Winder Helper: Troy Link MD Basic Metab w/rfx MGon 07-17 (cont.) Normal [facility] Comment on above: Result Comment: Aver age GFR for 50-59 years old: 93 mL/min/1.73sq m Chronic Kidney Disease: <60 mL/min/1.73sq m Kidney failure: <15 mL/min/1.73sq m eGFR calculated using average adult body mass. Additional eGFR calculator available at: http://www.Dataslide.com/multiple_crcl_2012.htm Performed By: #### C BC, PT, PTT, BMP #### [address] [address] Sp[employer] T[employer] Winder Helper: Good Melendez MD #### ANICOT #### [facility] [address] [place] [address] [employer] Winder Helper: Troy Link MD Anion gap [Moles/Vol] 9 mmol/L Normal 9-17 [facility] Comment on above: Performed By: #### C BC, PT, PTT, BMP #### [facility] [address] [place] [address] Sp[employer] Winder Helper: Good Melendez MD #### ANICOT #### [facility] [address] [place] [address] [employer] Winder Helper: Troy Link MD Calcium [Mass/Vol] 9.3 mg/dL Normal 8.6-10.4 [facility] Comment on above: Performed By: #### C BC, PT, PTT, BMP #### [address] [address] [employer] Winder Helper: Good Melendez MD #### ANICOT #### [facility] [address] [place], [place] [id number] [employer] Winder Helper: Troy Link MD Chloride [Moles/Vol] 106 mmol/L Normal 98-107 [facility] Comment on above: Performed By: #### C BC, PT, PTT, BMP #### [address] [id number] [employer] Winder Helper: Good Melendez MD #### ANICOT #### [facility] [address] [place] [address] Sp[employer] Winder Helper: Troy Link MD CO2 [Moles/Vol] 23 mmol/L Normal 20-31 [facility] Comment on above: Performed By: #### C BC, PT, PTT, BMP #### [address] [id number] [employer] Winder Helper: Good Melendez MD #### ANICOT #### [facility] [address] [place] [address] [employer] Winder Helper: Troy Link MD Creatinine [Mass/Vol] 1.40 mg/dL High 0.70-1.20 [facility] Comment on above: Performed By: #### C BC, PT, PTT, BMP #### [address] [address] Sp[employer] Winder Helper: Good Melendez MD #### ANICOT #### [facility] [address] [place], [place] [id number] [employer] Winder Helper: Troy Link MD GFR, Amer >60 Normal >60 [facility] Comment on above: Performed By: #### C BC, PT, PTT, BMP #### [address] [address] Sp[employer] Winder Helper: Good Melendez MD #### ANICOT #### [facility] [address] [place], [place] [id number] Sp[employer] Winder Helper: Troy Link MD GFR,non Amer 52 mL/min Low >60 [facility] Comment on above: Performed By: #### C BC, PT, PTT, BMP #### [address] [id number] [employer] Winder Helper: Good Melendez MD #### ANICOT #### [facility] [address] [place], [place] [id number] [employer] Winder Helper: Troy Link MD Glucose [Mass/Vol] 170 mg/dL High 70-99 [facility] Comment on above: Performed By: #### C BC, PT, PTT, BMP #### [address] [id number] [employer] Winder Helper: Good Melendez MD #### ANICOT #### [facility] [address] [place], [place] [id number] [employer] Winder Helper: Troy Link MD Potassium [Moles/Vol] 4.6 mmol/L Normal 3.7-5.3 [facility] Comment on above: Performed By: #### C BC, PT, PTT, BMP #### [address] [id number] Sp[employer] Winder Helper: Good Melendez MD #### ANICOT #### [facility] [address] [place], [place] [id number] [employer] Winder Helper: Troy Link MD Sodium [Moles/Vol] 138 mmol/L Normal 135-144 [facility] Comment on above: Performed By: #### C BC, PT, PTT, BMP #### [facility] [address] [place] [address] Sp[employer] Winder Helper: Good Melendez MD #### ANICOT #### [facility] [address] [place], [place] [id number] [employer] Winder Helper: Troy Link MD Urea nitrogen [Mass/Vol] 33 mg/dL High 6-20 [facility] Comment on above: Performed By: #### C BC, PT, PTT, BMP #### [facility] [address] [place] [address] Sp[employer] Winder Helper: Good Melendez MD #### ANICOT #### [facility] [address] [place] [address] Sp[employer] Winder Helper: Troy Link MD Basic Metabolic Profon 07-17 (cont.) Normal [facility] Comment on above: Result Comment: Aver age GFR for 50-59 years old: 93 mL/min/1.73sq m Chronic Kidney Disease: <60 mL/min/1.73sq m Kidney failure: <15 mL/min/1.73sq m eGFR calculated using average adult body mass. Additional eGFR calculator available at: http://www.Dataslide.Metanautix/multiple_crcl_2012.htm Performed By: #### C BC, PT, PTT, BMP #### [facility] [address] [place] [address] [employer] Winder Helper: Good Melendez MD #### ANICOT #### [facility] [address] [place] [address] [employer] Winder Helper: Troy Link MD Anion gap [Moles/Vol] 8 mmol/L Low 9-17 [facility] Comment on above: Performed By: #### C BC, PT, PTT, BMP #### [facility] [address] [place] [address] Sp[employer] Winder Helper: Good Melendez MD #### ANICOT #### [facility] [address] [place], [place] [id number] Sp[employer] Winder Helper: Troy Link MD Calcium [Mass/Vol] 9.5 mg/dL Normal 8.6-10.4 [facility] Comment on above: Performed By: #### C BC, PT, PTT, BMP #### [address] [address] Sp[employer] T[employer] Winder Helper: Good Melendez MD #### ANICOT #### [facility] [address] [place], [place] [id number] Sp[employer] Winder Helper: Troy Link MD Chloride [Moles/Vol] 104 mmol/L Normal 98-107 [facility] Comment on above: Performed By: #### C BC, PT, PTT, BMP #### [address] [address] Sp[employer] Winder Helper: Good Melendez MD #### ANICOT #### [facility] [address] [place], [place] [id number] Sp[employer] Winder Helper: Troy Link MD CO2 [Moles/Vol] 23 mmol/L Normal 20-31 [facility] Comment on above: Performed By: #### C BC, PT, PTT, BMP #### [address] [address] Spiral T[employer] Winder Helper: Good Melendez MD #### ANICOT #### [facility] [address] [place], [place] [id number] Sp[employer] Winder Helper: Troy Link MD Creatinine [Mass/Vol] 1.34 mg/dL High 0.70-1.20 [facility] Comment on above: Performed By: #### C BC, PT, PTT, BMP #### [address] [address] Spiral [employer] Winder Helper: Good Melendez MD #### ANICOT #### [facility] [address] [place] [address] Spiral [employer] Winder Helper: Troy Link MD GFR, Amer >60 Normal >60 [facility] Comment on above: Performed By: #### C BC, PT, PTT, BMP #### [address] [address] Spiral T[employer] Winder Helper: Good Melendez MD #### ANICOT #### [facility] [address] [place] [address] Spiral Tube Winder Helper: Troy Link MD GFR,non Amer 55 mL/min Low >60 [facility] Comment on above: Performed By: #### C BC, PT, PTT, BMP #### [address] [address] Spiral Tube Winder Helper: Good Melendez MD #### ANICOT #### [facility] [address] [place], [place] [id number] Sp[employer] T[employer] Winder Helper: Troy Link MD Glucose [Mass/Vol] 136 mg/dL High 70-99 [facility] Comment on above: Performed By: #### C BC, PT, PTT, BMP #### [address] [address] Spiral T[employer] Winder Helper: Good Melendez MD #### ANICOT #### [facility] [address] [place] [address] Spiral [employer] Winder Helper: Troy Link MD Potassium [Moles/Vol] 4.7 mmol/L Normal 3.7-5.3 [facility] Comment on above: Performed By: #### C BC, PT, PTT, BMP #### [address] [address] Spiral T[employer] Winder Helper: Good Melendez MD #### ANICOT #### [facility] [address] [place], [place] [id number] Sp[employer] Winder Helper: Troy Link MD Sodium [Moles/Vol] 135 mmol/L Normal 135-144 [facility] Comment on above: Performed By: #### C BC, PT, PTT, BMP #### [facility] [address] [place] [address] Spiral T[employer] Winder Helper: Good Melendez MD #### ANICOT #### [facility] [address] [place] [address] Sp[employer] Winder Helper: Troy Link MD Urea nitrogen [Mass/Vol] 31 mg/dL High 6-20 [facility] Comment on above: Performed By: #### C BC, PT, PTT, BMP #### [facility] [address] [place] [id number] Sp[employer] T[employer] Winder Helper: Good Melendez MD #### ANICOT #### [facility] [address] [place], [place] [id number] Sp[employer] T[employer] Winder Helper: Troy Link MD Fibrinogenon 07-17-2021 Fibrinogen 404 mg/dL Normal 140-420 [facility] Comment on above: Performed By: #### C BC, PT, PTT, BMP #### [facility] [address] [place] [address] Spiral Tube Winder Helper: Good Melendez MD #### ANICOT #### [facility] [address] [place], [place] [id number] Spiral Tube Winder Helper: Troy Link MD Fibrinogen 395 mg/dL Normal 140-420 [facility] Comment on above: Performed By: #### C BC, PT, PTT, BMP #### [facility] [address] [place] [address] Spiral Tube Winder Helper: Good Melendez MD #### ANICOT #### [facility] [address] [place] [address] Spiral Tube Winder Helper: Troy Link MD Hemoglobin A1Con 07-17-2021 Glucose [Mass/Vol] 169 mg/dL Normal [facility] Comment on above: Result Comment: The ADA and AACC recommend providing the estimated average glucose result to permit better patient understanding of their HBA1c result. Performed By: #### C BC, PT, PTT, BMP #### [facility] [address] [place] [address] Sp[employer] T[employer] Winder Helper: Good Melendez MD #### ANICOT #### [facility] [address] [place], [place] [id number] Spiral [employer] Winder Helper: Troy Link MD HbA1c (Bld) [Mass fraction] 7.5 % High 4.0-6.0 [facility] Comment on above: Performed By: #### C BC, PT, PTT, BMP #### [address] [id number] Sp[employer] Winder Helper: Good Melendez MD #### ANICOT #### [facility] [address] [place] [address] Spiral [employer] Winder Helper: Troy Link MD PTon 07-17-2021 INR Coag (PPP) [Relative time] 1.2 {INR} Normal [facility] Comment on above: Result Comment: Therapeutic Range: Moderate Anticoagulant Intensity: INR = 2.0-3.0 High Anticoagulant Intensity: INR = 2.5-3.5 Performed By: #### C BC, PT, PTT, BMP #### [facility] [address] [place] [address] Spiral Tube Winder Helper: Good Melendez MD #### ANICOT #### [facility] [address] [place] [address] Spiral Tube Winder Helper: Troy Link MD PT Coag (PPP) [Time] 12.6 s High 9.1-12.3 [facility] Comment on above: Performed By: #### C BC, PT, PTT, BMP #### [facility] [address] [place] [address] Spiral Tube Winder Helper: Good Melendez MD #### ANICOT #### [facility] [address] [place] [address] Spiral T[employer] Winder Helper: Troy Link MD Troponinon 07-17-2021 Troponin, High Sens 38 ng/L High 0-22 [facility] Comment on above: Result Comment: High Sensitivity Troponin values cannot be compared with other Troponin methodologies. Patients with high levels of Biotin oral intake (i.e >5mg/day) may have falsely decreased Troponin levels. Samples collected within 8 hours of biotin intake may require additional information for diagnosis. Performed By: #### C BC, PT, PTT, BMP #### [address] [address] Spiral Tube Winder Helper: Good Melendez MD #### ANICOT #### [facility] [address] [place] [address] Sp[employer] Winder Helper: Troy Link MD APTTon 8 aPTT Coag (Bld) [Time] 51.1 s High 20.5-30.5 [facility] Comment on above: Result Comment: IV Heparin Therapy Range: 48.6-77.8 Performed By: #### C BC, PT, PTT, BMP #### [address] [address] Spiral T[employer] Winder Helper: Good Melendez MD #### ANICOT #### [facility] [address] [place] [address] Sp[employer] Winder Helper: Troy Link MD aPTT Coag (Bld) [Time] 31.1 s High 20.5-30.5 [facility] Comment on above: Result Comment: IV Heparin Therapy Range: 48.6-77.8 Performed By: #### C BC, PT, PTT, BMP #### [facility] [address] [place] [address] Spiral T[employer] Winder Helper: Good Melendez MD #### ANICOT #### [facility] [address] [place] [address] Spiral Tube Winder Helper: Troy Link MD Brain Natri. Peptideon 07-16 Natriuretic peptide B (Bld) [Mass/Vol] 1492 pg/mL High <300 [facility] Comment on above: Result Comment: An age-independent cutoff point of 300 pg/ml has a 98% negative predictive value excluding acute heart failure. Performed By: #### C BC, PT, PTT, BMP #### [facility] [address] [place] [address] Spiral T[employer] Winder Helper: Good Melendez MD #### ANICOT #### [facility] [address] [place] [address] Spiral Tube Winder Helper: Troy Link MD [facility] Erythrocyte distribution width (RBC) [Ratio] 13.6 % Normal 11.8-14.4 [facility] Comment on above: Performed By: #### C BC, PT, PTT, BMP #### [address] [address] Spiral Tube Winder Helper: Good Melendez MD #### ANICOT #### [facility] [address] [place] [address] Spiral T[employer] Winder Helper: Troy Link MD Hematocrit (Bld) [Volume fraction] 40.3 % Low 40.7-50.3 [facility] Comment on above: Performed By: #### C BC, PT, PTT, BMP #### [facility] [address] [place] [address] [id number] Sp[employer] Winder Helper: Good Melendez MD #### ANICOT #### [facility] [address] [place] [address] Sp[employer] Winder Helper: Troy Link MD Hemoglobin (Bld) [Mass/Vol] 13.0 g/dL Normal 13.0-17.0 [facility] Comment on above: Performed By: #### C BC, PT, PTT, BMP #### [address] [id number] Spiral Tube Winder Helper: Good Melendez MD #### ANICOT #### [facility] [address] [place] [address] Spiral Tube Winder Helper: Troy Link MD MCH (RBC) [Entitic mass] 28.7 pg Normal 25.2-33.5 [facility] Comment on above: Performed By: #### C BC, PT, PTT, BMP #### [address] [id number] Spiral Tube Winder Helper: Good Melendez MD #### ANICOT #### [facility] [address] [place] [id number] Spiral T[employer] Winder Helper: Troy Link MD MCHC (RBC) [Mass/Vol] 32.3 g/dL Normal 28.4-34.8 [facility] Comment on above: Performed By: #### C BC, PT, PTT, BMP #### [address] [id number] Spiral T[employer] Winder Helper: Good Melendez MD #### ANICOT #### [facility] [address] [place], [place] [id number] Spiral Tube Winder Helper: Troy Link MD MCV (RBC) [Entitic vol] 89.0 fL Normal 82.6-102.9 [facility] Comment on above: Performed By: #### C BC, PT, PTT, BMP #### [address] [phone] Spiral Tube Winder Helper: Good Melendez MD #### ANICOT #### [facility] [address] [place], [place] [id number] Spiral Tube Winder Helper: Troy Link MD NRBC Automated 0.0 per 100 WBC Normal 0.0 [facility] Comment on above: Performed By: #### C BC, PT, PTT, BMP #### [address] [address] Spiral Tube Winder Helper: Good Melendez MD #### ANICOT #### [facility] [address] [place] [address] Sp[employer] Winder Helper: Troy Link MD Platelet mean volume (Bld) [Entitic vol] 9.6 fL Normal 8.1-13.5 [facility] Comment on above: Performed By: #### C BC, PT, PTT, BMP #### [address] [address] Spiral Tube Winder Helper: Good Melendez MD #### ANICOT #### [facility] [address] [place] [address] Spiral T[employer] Winder Helper: Troy Link MD Platelets (Bld) [#/Vol] 203 10*3/uL Normal 138-453 [facility] Comment on above: Performed By: #### C BC, PT, PTT, BMP #### [address] [address] Spiral Tube Winder Helper: Good Melendez MD #### ANICOT #### [facility] [address] [place] [address] Spiral Tube Winder Helper: Troy Link MD RBC (Bld) [#/Vol] 4.53 10*6/uL Normal 4.21-5.77 [facility] Comment on above: Performed By: #### C BC, PT, PTT, BMP #### [address] [address] Spiral Tube Winder Helper: Good Melendez MD #### ANICOT #### [facility] [address] [place] [address] Spiral Tube Winder Helper: Troy Link MD WBC (Bld) [#/Vol] 6.8 10*3/uL Normal 3.5-11.3 [facility] Comment on above: Performed By: #### C BC, PT, PTT, BMP #### [facility] [place] [address] Spiral Tube Winder Helper: Good Melendez MD #### ANICOT #### [facility] [address] [place] [address] Spiral Tube Winder Helper: Troy Link MD Troponinon 07-16-2021 Troponin, High Sens 59 ng/L Critically high 0- [facility] Comment on above: Result Comment: High Sensitivity Troponin values cannot be compared with other Troponin methodologies. Patients with high levels of Biotin oral intake (i.e >5mg/day) may have falsely decreased Troponin levels. Samples collected within 8 hours of biotin intake may require additional information for diagnosis. Performed By: #### C BC, PT, PTT, BMP #### [address] [place] [address] Spiral Tube Winder Helper: Good Melendez MD #### ANICOT #### [facility] [address] [place] [address] Spiral Tube Winder Helper: Troy Link MD EKG 12 LeadOrdered By: Matias Vaerla on 05-26-2021 Atrial Rate 108 BPM [employer] Phone: P [place] -96 degrees [place] Phone: P-R Interval 192 ms [employer] Phone: Q-T Interval 348 ms [employer] Phone: QRS Duration 94 ms [employer] Phone: QTc Calculation (Bazett) 466 ms [employer] Phone: R [place] -116 degrees [place] Phone: T [place] -114 degrees [place] Phone: Ventricular Rate 108 BPM [facility] Work Phone: [email or web address] Work Phone: EKG 12 Leadon 05-26-2021 Arm lead reversal Sinus Tachycardia V Leads placement error Repeat ECG When compared with ECG of 08-MAY-2021 11:42, Significant changes have occurred [facility] Matias Andrade MD - 05/26/2021 Arm lead reversal Sinus Tachycardia V Leads placement error Repeat ECG When compared with ECG of 08-MAY-2021 11:42, Significant changes have occurred [email or web address] Work Phone: SURGICAL PATHOLOGY REPORTon 05-26-2021 Surgical [...] with no areas of granularity or masses. Senior Benefits Analyst sections 1cs. tm Microscopic Description Sections of gastric wall show lamina propria without evidence of significant inflammation. There is no evidence of intestinal metaplasia or dysplasia. There is no evidence of organisms suspicious for Helicobacter with the routine H&E stain. SURGICAL PATHOLOGY CONSULTATION Patient Name: SUKHDEEP SIMENTAL [facility] Rec: [id number] Path Number: [id number] [facility] ANATOMIC PATHOLOGY [address] [place] [address]. [place], [place] [address] [facility] [employer] Basic Metabolic Panelon 03-3 Anion gap [Moles/Vol] 10 mmol/L 9 - 17 mmol/L [employer] Calcium [Mass/Vol] 9.1 mg/dL 8.6 - 10. 4 mg/dL [employer] Chloride [Moles/Vol] 106 mmol/L 98 - 10 7 mmol/L [email or web address] CO2 [Moles/Vol] 23 mmol/L 20 - 31 mmol/L [facility] Creatinine [Mass/Vol] 1.1 mg/dL 0.70 - 1.20 mg/dL [facility] [employer] GFR >60 >60 mL/min [facility] GFR Non- >60 >60 mL/min [facility] GFR/1.73 sq M.predicted MDRD (S/P/Bld) [Vol rate/Area] [facility] Comment on above: Average GFR for 50-5 9 years old: 93 mL/min/1.73sq m Chronic Kidney Disease: <60 mL/min/1.73sq m Kidney failure: <15 mL/min/1.73sq m eGFR calculated using average adult body mass. Additional eGFR calculator available at: http://www.Ridejoy/Visto_crcl_2011.htm Glucose [Mass/Vol] 127 mg/dL High 70 - 99 mg/dL [facility] Interpretation and review of laboratory results Abnormal [facility] [employer] Potassium [Moles/Vol] 4.8 mmol/L 3.7 - 5.3 mmol/L [facility] [employer] Sodium [Moles/Vol] 139 mmol/L 135 - 144 mmol/L [facility] Urea nitrogen (BldV) [Mass/Vol] 24 mg/dL High 6 - 20 mg/dL [facility] Basic Metabolic Profon 05-25 (cont.) Normal [facility] Comment on above: Result Comment: Aver age GFR for 50-59 years old: 93 mL/min/1.73sq m Chronic Kidney Disease: <60 mL/min/1.73sq m Kidney failure: <15 mL/min/1.73sq m eGFR calculated using average adult body mass. Additional eGFR calculator available at: http://www.Ridejoy/multiple_crcl_2011.htm Performed By: #### C BC, PT, PTT, BMP #### [address] [place] [address] [employer] Winder Helper: Good Melendez MD #### KATIEICOT #### [facility] [address] [place] [address] [employer] Winder Helper: Troy Link MD Anion gap [Moles/Vol] 10 mmol/L Normal 9-17 [facility] Comment on above: Performed By: #### C BC, PT, PTT, BMP #### [address] [address] [employer] Winder Helper: Good Melendez MD #### ANICOT #### [facility] [address] [place], [place] [id number] [employer] Winder Helper: Troy Link MD Calcium [Mass/Vol] 9.1 mg/dL Normal 8.6-10.4 [facility] Comment on above: Performed By: #### C BC, PT, PTT, BMP #### [address] [id number] [employer] Winder Helper: Good Melendez MD #### ANICOT #### [address] [address] [employer] Winder Helper: Troy Link MD Chloride [Moles/Vol] 106 mmol/L Normal 98-107 [facility] Comment on above: Performed By: #### C BC, PT, PTT, BMP #### [address] [address] [employer] Winder Helper: Good Melendez MD #### ANICOT #### [address] [id number] [employer] Winder Helper: Troy Link MD CO2 [Moles/Vol] 23 mmol/L Normal 20-31 [facility] Comment on above: Performed By: #### C BC, PT, PTT, BMP #### [address] [address] Sp[employer] Winder Helper: Good Melendez MD #### ANICOT #### [facility] [address] [place] [address] Sp[employer] Winder Helper: Troy Link MD Creatinine [Mass/Vol] 1.10 mg/dL Normal 0.70-1.20 [facility] Comment on above: Performed By: #### C BC, PT, PTT, BMP #### [address] [address] [employer] Winder Helper: Good Melendez MD #### ANICOT #### [facility] [address] [place], [place] [id number] Sp[employer] Winder Helper: Troy Link MD GFR, Amer >60 Normal >60 [facility] Comment on above: Performed By: #### C BC, PT, PTT, BMP #### [address] [address] [employer] Winder Helper: Good Melendez MD #### ANICOT #### [facility] [address] [place] [address] Spiral T[employer] Winder Helper: Troy Link MD GFR,non Amer >60 Normal >60 [facility] Comment on above: Performed By: #### C BC, PT, PTT, BMP #### [address] [address] [employer] Winder Helper: Good Melendez MD #### ANICOT #### [facility] [address] [place], [place] [id number] Sp[employer] Winder Helper: Troy Link MD Glucose [Mass/Vol] 127 mg/dL High 70-99 [facility] Comment on above: Performed By: #### C BC, PT, PTT, BMP #### [address] [address] Sp[employer] Winder Helper: Good Melendez MD #### ANICOT #### [facility] [address] [place], [place] [id number] [employer] Winder Helper: Troy Link MD Potassium [Moles/Vol] 4.8 mmol/L Normal 3.7-5.3 [facility] Comment on above: Performed By: #### C BC, PT, PTT, BMP #### [facility] [place], [place] [id number] Sp[employer] T[employer] Winder Helper: Good Melendez MD #### ANICOT #### [facility] [address] [place], [place] [id number] Sp[employer] Winder Helper: Troy Link MD Sodium [Moles/Vol] 139 mmol/L Normal 135-144 [facility] Comment on above: Performed By: #### C BC, PT, PTT, BMP #### [address] [id number] [employer] Winder Helper: Good Melendez MD #### ANICOT #### [facility] [address] [place] [address] Sp[employer] Winder Helper: Troy Link MD Urea nitrogen [Mass/Vol] 24 mg/dL High 6-20 [facility] Comment on above: Performed By: #### C BC, PT, PTT, BMP #### [address] [phone] [employer] Winder Helper: Good Melendez MD #### ANICOT #### [facility] [address] [place] [address] Sp[employer] T[employer] Winder Helper: Troy Link MD CBCon 05-25-2021 Erythrocyte distribution width (RBC) [Ratio] 13.9 % Normal 11.8-14.4 [facility] Comment on above: Performed By: #### C BC, PT, PTT, BMP #### [address] [id number] [employer] Winder Helper: Good Melendez MD #### ANICOT #### [facility] [address] [place] [address] Sp[employer] T[employer] Winder Helper: Troy Link MD Hematocrit (Bld) [Volume fraction] 39.5 % Low 40.7-50.3 [facility] Comment on above: Performed By: #### C BC, PT, PTT, BMP #### [address] 1939808 Sp[employer] Winder Helper: Good Melendez MD #### ANICOT #### [facility] [address] [place], [place] [id number] [employer] Winder Helper: Troy Link MD Hemoglobin (Bld) [Mass/Vol] 12.2 g/dL Low 13.0-17.0 [facility] Comment on above: Performed By: #### C BC, PT, PTT, BMP #### [address] [id number] [employer] Winder Helper: Good Melendez MD #### ANICOT #### [facility] [address] [place] [id number] [employer] Winder Helper: Troy Link MD MCH (RBC) [Entitic mass] 30.2 pg Normal 25.2-33.5 [facility] Comment on above: Performed By: #### C BC, PT, PTT, BMP #### [address] [phone] [employer] Winder Helper: Good Melendez MD #### ANICOT #### [facility] [address] [place], [place] [id number] Sp[employer] T[employer] Winder Helper: Troy Link MD MCHC (RBC) [Mass/Vol] 30.9 g/dL Normal 28.4-34.8 [facility] Comment on above: Performed By: #### C BC, PT, PTT, BMP #### [address] [id number] [employer] Winder Helper: Good Melendez MD #### ANICOT #### [facility] [address] [place], [place] [id number] Sp[employer] T[employer] Winder Helper: Troy Link MD MCV (RBC) [Entitic vol] 97.8 fL Normal 82.6-102.9 [facility] Comment on above: Performed By: #### C BC, PT, PTT, BMP #### [address] [address] [employer] Winder Helper: Good Melendez MD #### ANICOT #### [facility] [address] [place], [place] [id number] Sp[employer] Winder Helper: Troy Link MD NRBC Automated 0.0 per 100 WBC Normal 0.0 [facility] Comment on above: Performed By: #### C BC, PT, PTT, BMP #### [address] [address] Sp[employer] T[employer] Winder Helper: Good Melendez MD #### ANICOT #### [facility] [address] [place], [place] [id number] Sp[employer] T[employer] Winder Helper: Troy Link MD Platelet mean volume (Bld) [Entitic vol] 8.8 fL Normal 8.1-13.5 [facility] Comment on above: Performed By: #### C BC, PT, PTT, BMP #### [address] [address] Spiral T[employer] Winder Helper: Good Melendez MD #### ANICOT #### [facility] [address] [place], [place] [id number] Sp[employer] Winder Helper: Troy Link MD Platelets (Bld) [#/Vol] 263 10*3/uL Normal 138-453 [facility] Comment on above: Performed By: #### C BC, PT, PTT, BMP #### [address] [address] Sp[employer] T[employer] Winder Helper: Good Melendez MD #### ANICOT #### [facility] [address] [place], [place] [id number] Sp[employer] Winder Helper: Troy Link MD RBC (Bld) [#/Vol] 4.04 10*6/uL Low 4.21-5.77 [facility] Comment on above: Performed By: #### C BC, PT, PTT, BMP #### [facility] [address] [place] [address] Spiral Tube Winder Helper: Good Melendez MD #### ANICOT #### [facility] [address] [place], [place] [id number] Sp[employer] Winder Helper: Tryo Link MD WBC (Bld) [#/Vol] 10.8 10*3/uL Normal 3.5-11.3 [facility] Comment on above: Performed By: #### C BC, PT, PTT, BMP #### [facility] [place], [place] [id number] Sp[employer] Tube Winder Helper: Good Melendez MD #### ANICOT #### [facility] [address] [place] [address] Sp[employer] T[employer] Winder Helper: Troy Link MD Hematocrit (Bld) [Volume fraction] 39.5 % Low 40.7 - 50.3 % [facility] Hemoglobin.gastroint estinal spec 1 Ql (Stl) 12.2 g/dL Low 13.0 - 17.0 g/dL [facility] Interpretation and review of laboratory results Abnormal [facility] [employer] MCH (RBC) [Entitic mass] 30.2 pg 25.2 - 33.5 pg [facility] [employer] MCHC (RBC) [Mass/Vol] 30.9 g/dL 28.4 - 34.8 g/dL [facility] MCV (RBC) [Entitic vol] 97.8 fL 82.6 - 102.9 fL [facility] NRBC Automated 0.0 0.0 per 100 WBC [facility] Platelet distribution width (Bld) [Ratio] 13.9 % 11.8 - 14.4 % [facility] Platelet mean volume (Bld) [Entitic vol] 8.8 fL 8.1 - 13.5 fL [facility] [employer] Platelets (Bld) [#/Vol] 263 10*3/uL [facility] [employer] RBC (Bld) [#/Vol] 4.04 10*6/uL Low 4.21 - 5.7 7 m/uL [facility] WBC (Bld) [#/Vol] 10.8 10*3/uL [facility] Magnesiumon 05-25-2021 Magnesium [Mass/Vol] 1.9 mg/dL Normal 1.6-2.6 [facility] Comment on above: Performed By: #### C BC, PT, PTT, BMP #### [facility] [address] [place] [address] Sp[employer] T[employer] Winder Helper: Good Melendez MD #### ANAPARNAT #### [facility] [address] [place], [place] [id number] [employer] Winder Helper: Troy Link MD Magnesium [Mass/Vol] 1.9 mg/dL 1.6 - 2 .6 mg/dL [facility] Surgical Pathologyon 022 Surgical Pathology (NOTE) -- [...] with no areas of granularity or masses. Senior Benefits Analyst sections 1cs. tm Microscopic Description Sections of gastric wall show lamina propria without evidence of significant inflammation. There is no evidence of intestinal metaplasia or dysplasia. There is no evidence of organisms suspicious for Helicobacter with the routine CANDY stain. SURGICAL PATHOLOGY CONSULTATION Patient Name: SUKHDEEP SIMENTAL [facility] Rec: [id number] Path Number: [id number] [employer] [facility] ANATOMIC PATHOLOGY [address] [place] [id number] Normal [facility] Comment on above: Performed By: #### C BC, PT, PTT, BMP #### [facility] [address] [place] [address] Sp[employer] Tube Winder Helper: Good Melendez MD #### ANICOT #### [facility] [address] [place] [address] Spiral Tube Winder Helper: Troy Link MD Basic Metabolic Panelon 04-27 Anion gap [Moles/Vol] 13 mmol/L 9 - 17 mmol/L [facility] Calcium [Mass/Vol] 9.1 mg/dL 8.6 - 10. 4 mg/dL [facility] Chloride [Moles/Vol] 102 mmol/L 98 - 10 7 mmol/L [facility] CO2 [Moles/Vol] 17 mmol/L Low 20 - 31 mmol/L [facility] Creatinine [Mass/Vol] 1.16 mg/dL 0.70 - 1.20 mg/dL [facility] GFR >60 >60 mL/min [employer] GFR Non- >60 >60 mL/min [facility] GFR/1.73 sq M.predicted MDRD (S/P/Bld) [Vol rate/Area] [facility] Comment on above: Average GFR for 50-5 9 years old: 93 mL/min/1.73sq m Chronic Kidney Disease: <60 mL/min/1.73sq m Kidney failure: <15 mL/min/1.73sq m eGFR calculated using average adult body mass. Additional eGFR calculator available at: http://www.Dataslide.Metanautix/multiple_crcl_2011.htm Glucose [Mass/Vol] 203 mg/dL High 70 - 99 mg/dL [facility] Interpretation and review of laboratory results Abnormal [facility] Potassium [Moles/Vol] 4.2 mmol/L 3.7 - 5.3 mmol/L [facility] Sodium [Moles/Vol] 132 mmol/L Low 135 - 144 mmol/L [facility] Urea nitrogen (BldV) [Mass/Vol] 29 mg/dL High 6 - 20 mg/dL [employer] Basic Metabolic Profon 05-24 (cont.) Normal [facility] Comment on above: Result Comment: Aver age GFR for 50-59 years old: 93 mL/min/1.73sq m Chronic Kidney Disease: <60 mL/min/1.73sq m Kidney failure: <15 mL/min/1.73sq m eGFR calculated using average adult body mass. Additional eGFR calculator available at: http://www.Dataslide.Metanautix/multiple_crcl_2012.htm Performed By: #### C BC, BMP #### [facility] [address] [place] [address] Sp[employer] T[employer] Winder Helper: Good Melendez MD Anion gap [Moles/Vol] 13 mmol/L Normal 9-17 [facility] Comment on above: Performed By: #### C BC, BMP #### [facility] [address] [place] [address] Sp[employer] Winder Helper: Good Melendez MD Calcium [Mass/Vol] 9.1 mg/dL Normal 8.6-10.4 [facility] Comment on above: Performed By: #### C BC, BMP #### [facility] [address] [place] [address] Sp[employer] T[employer] Winder Helper: Good Melendez MD Chloride [Moles/Vol] 102 mmol/L Normal 98-107 [facility] Comment on above: Performed By: #### C BC, BMP #### [facility] [address] [place] [address] Sp[employer] T[employer] Winder Helper: Good Melendez MD CO2 [Moles/Vol] 17 mmol/L Low 20-31 [facility] Comment on above: Performed By: #### C BC, BMP #### [facility] [address] [place] [address] Sp[employer] Winder Helper: Good Melendez MD Creatinine [Mass/Vol] 1.16 mg/dL Normal 0.70-1.20 [facility] Comment on above: Performed By: #### C BC, BMP #### [facility] [address] [place] [address] Sp[employer] Winder Helper: Good Melendez MD GFR, Amer >60 Normal >60 [facility] Comment on above: Performed By: #### C BC, BMP #### [facility] [address] [place] [address] Sp[employer] Winder Helper: Good Melendez MD GFR,non Amer >60 Normal >60 [facility] Comment on above: Performed By: #### C BC, BMP #### [facility] [address] [place] [address] Sp[employer] Winder Helper: Good Melendez MD Glucose [Mass/Vol] 203 mg/dL High 70-99 [facility] Comment on above: Performed By: #### C BC, BMP #### [facility] [address] [place] [address] Sp[employer] Winder Helper: Good Melendez MD Potassium [Moles/Vol] 4.2 mmol/L Normal 3.7-5.3 [facility] Comment on above: Performed By: #### C BC, BMP #### [facility] [address] [place] [address] Sp[employer] Winder Helper: Good Melendez MD Sodium [Moles/Vol] 132 mmol/L Low 135-144 [facility] Comment on above: Performed By: #### C BC, BMP #### [facility] [address] [place] [address] Sp[employer] Winder Helper: Good Melendez MD Urea nitrogen [Mass/Vol] 29 mg/dL High 6-20 [facility] Comment on above: Performed By: #### C BC, BMP #### [facility] [address] [place] [address] Sp[employer] Winder Helper: Good Melendez MD CBCon 05-24-2021 Erythrocyte distribution width (RBC) [Ratio] 14.0 % Normal 11.8-14.4 [facility] Comment on above: Performed By: #### C BC, BMP #### [address] [address] Sp[employer] T[employer] Winder Helper: Good Melendez MD Hematocrit (Bld) [Volume fraction] 41.0 % Normal 40.7-50.3 [facility] Comment on above: Performed By: #### C BC, BMP #### [address] [address] Sp[employer] Winder Helper: Good Melendez MD Hemoglobin (Bld) [Mass/Vol] 12.7 g/dL Low 13.0-17.0 [facility] Comment on above: Performed By: #### C BC, BMP #### [address] [address] Spiral T[employer] Winder Helper: Good Melendez MD MCH (RBC) [Entitic mass] 29.5 pg Normal 25.2-33.5 [facility] Comment on above: Performed By: #### C BC, BMP #### [address] [address] Sp[employer] Winder Helper: Good Melendez MD MCHC (RBC) [Mass/Vol] 31.0 g/dL Normal 28.4-34.8 [facility] Comment on above: Performed By: #### C BC, BMP #### [address] [address] Sp[employer] T[employer] Winder Helper: Good Melendez MD MCV (RBC) [Entitic vol] 95.3 fL Normal 82.6-102.9 [facility] Comment on above: Performed By: #### C BC, BMP #### [address] [address] Sp[employer] T[employer] Winder Helper: Good Melendez MD NRBC Automated 0.0 per 100 WBC Normal 0.0 [facility] Comment on above: Performed By: #### C BC, BMP #### [address] [address] Sp[employer] Winder Helper: Good Melendez MD Platelet mean volume (Bld) [Entitic vol] 8.8 fL Normal 8.1-13.5 [facility] Comment on above: Performed By: #### C JASE, BMP #### [facility] [place] [address] Spiral Tube Winder Helper: Good Melendez MD Platelets (Bld) [#/Vol] 273 10*3/uL Normal 138-453 [facility] Comment on above: Performed By: #### C JASE, BMP #### [facility] [place] [address] Spiral Tube Winder Helper: Good Melendez MD RBC (Bld) [#/Vol] 4.30 10*6/uL Normal 4.21-5.77 [facility] Comment on above: Performed By: #### Bennett LAGUNA, BMP #### [facility] [address] [place] [address] Sp[employer] Winder Helper: Good Melendez MD WBC (Bld) [#/Vol] 9.6 10*3/uL Normal 3.5-11.3 [facility] Comment on above: Performed By: #### C JASE, BMP #### [facility] [address] [place] [address] Sp[employer] T[employer] Winder Helper: Good Melendez MD CBC without Diffon Hematocrit (Bld) [Volume fraction] 41.0 % 40.7 - 50.3 % [facility] Hemoglobin.gastroint estinal spec 1 Ql (Stl) 12.7 g/dL Low 13.0 - 17.0 g/dL [facility] Interpretation and review of laboratory results Abnormal [facility] MCH (RBC) [Entitic mass] 29.5 pg 25.2 - 33.5 pg [facility] MCHC (RBC) [Mass/Vol] 31.0 g/dL 28.4 - 34.8 g/dL [facility] MCV (RBC) [Entitic vol] 95.3 fL 82.6 - 102.9 fL [facility] NRBC Automated 0.0 0.0 per 100 WBC [facility] Platelet distribution width (Bld) [Ratio] 14.0 % 11.8 - 14.4 % [facility] Platelet mean volume (Bld) [Entitic vol] 8.8 fL 8.1 - 13.5 fL [facility] Platelets (Bld) [#/Vol] 273 10*3/uL [facility] RBC (Bld) [#/Vol] 4.30 10*6/uL 4.21 - 5.7 7 m/uL [facility] WBC (Bld) [#/Vol] 9.6 10*3/uL [facility] COVID-19, Rapidon 05-24-2021 SARS-CoV-2 (COVID-19) RNA MUKUL+probe Ql (Unsp spec) Not detected Not Detected [facility] Comment on above: Rapid NAAT: The [...] management decisions. Fact sheet for Healthcare Providers: https://www.fda.gov/media/716039/download Fact sheet for Patients: https://www.fda.gov/media/313252/download Methodology: Isothermal Nucleic Acid Amplification Specimen Description .NASOPHARYNGEAL SWAB [facility] Calcium, Ionicon 05-24-2021 Calcium [Moles/Vol] 1.31 mmol/L Normal 1.13-1.33 [facility] Comment on above: Performed By: #### I BRAVO MG, BRITTANIE #### [facility] [address] [place], [place] [id number] Sp[employer] Tube Winder Helper: Good Melendez MD Calcium, Ionizedon 03-30-202 2 Calcium [Moles/Vol] 1.31 mmol/L 1.13 - 1 .33 mmol/L [facility] Magnesiumon 05-24-2021 Magnesium [Mass/Vol] 2.0 mg/dL Normal 1.6-2.6 [facility] Comment on above: Performed By: #### C BC, PT, PTT, BMP #### [facility] [address] [place], [place] [phone] Sp[employer] T[employer] Winder Helper: Good Melendez MD #### ANICOT #### [facility] [address] [place] [address] Spiral Tube Winder Helper: Troy Link MD Magnesium [Mass/Vol] 2.0 mg/dL 1.6 - 2 .6 mg/dL [facility] No Panel Informationon 05-24 [facility] POC Glucose Fingerstickon Glucose [Mass/Vol] 199 mg/dL High 75 - 110 mg/dL [facility] Interpretation and review of laboratory results Abnormal [facility] Glucose [Mass/Vol] 209 mg/dL High 75 - 110 mg/dL [facility] Interpretation and review of laboratory results Abnormal [facility] POCT Glucoseon 05-24-2021 Glucose [Mass/Vol] 150 mg/dL High 74 - 100 mg/dL [facility] Interpretation and review of laboratory results Abnormal [facility] POTASSIUM (POC)on 05-24-2021 Potassium [Moles/Vol] 3.9 mmol/L 3.5 - 4.5 mmol/L [facility] Phosphoruson 05-24-2021 Phosphate [Mass/Vol] 3.8 mg/dL 2.5 - 4 .5 mg/dL [facility] Phosphorus, Inorg.on 022 Phosphorus, Inorg. 3.8 mg/dL Normal 2.5-4.5 [facility] Comment on above: Performed By: #### C BC, PT, PTT, BMP #### [facility] [address] [place], [place] [address] Sp[employer] T[employer] Winder Helper: Good Melendez MD #### ANICOT #### [facility] [address] [place] [address] Spiral Tube Winder Helper: Troy Link MD [id number] 05-24-2021 SARS-CoV-2 (COVID-19) RNA MUKUL+probe Ql (Unsp spec) Not detected [facility] Comment on above: Result Comment: Rapid NAAT: [...] management decisions. Fact sheet for Healthcare Providers: https://www.fda.gov/media/415685/download Fact sheet for Patients: https://www.fda.gov/media/322125/download Methodology: Isothermal Nucleic Acid Amplification Performed By: #### C OVRB #### [facility] [address] [place] [address] [employer] Winder Helper: Good Melendez MD Nicotineon 05-11-2021 [id number] <2 Normal [facility] Comment on above: Performed By: #### C BC, PT, PTT, BMP #### [facility] [address] [place] [address] Sp[employer] T[employer] Winder Helper: Good Melendez MD #### ANICOT #### [facility] [address] [place] [address] [employer] Winder Helper: Troy Link MD Cotinine <2 Normal [facility] Comment on above: Performed By: #### C BC, PT, PTT, BMP #### [facility] [address] [place] [phone] [employer] Winder Helper: Good Melendez MD #### ANICOT #### [address] [address] [employer] Winder Helper: Troy Link MD Nicotine <2 Normal [facility] Comment on above: Result Comment: [...] developed and its performance characteristics determined by [facility]. It has not been cleared or approved by the [place] Food and Drug Administration. This test was performed in a CLIA certified laboratory and is intended for clinical purposes. Performed By: [facility] [address] [place] [address] Post Secondary Professional: Ayse Diaz MD Performed By: #### C BC, PT, PTT, BMP #### [facility] [address] [place] [address] [employer] Winder Helper: Good Melendez MD #### ANICOT #### [facility] [address] [place] [address] [employer] Winder Helper: Troy Link MD Nicotine, Bloodon 05-11-2021 0-[id number] <2 ng/mL [facility] h Cotinine <2 ng/mL [facility] Nicotine <2 ng/mL [facility] Comment on above: (NOTE) Consistent with [...] developed and its performance characteristics determined by [facility]. It has not been cleared or approved by the [place] Food and Drug Administration. This test was performed in a CLIA certified laboratory and is intended for clinical purposes. Performed By: [facility] [address] [place] [id number] Post Secondary Professional: Ayse Diaz MD [facility] [employer] EKG 12 LeadOrdered By: Unkno wn Result on 05-09-2021 Atrial Rate 122 BPM [facility] P [place] 55 degrees [facility] P-R Interval 164 ms [facility] Q-T Interval 298 ms [facility] QRS Duration 84 ms [facility] QTc Calculation (Bazett) 424 ms [facility] R [place]wick -11 degrees [facility] T [place] 42 degrees [facility] Ventricular Rate 122 BPM [facility] [employer] EKG 12 Leadon 05-09-2021 Sinus tachycardia Otherwise normal ECG No previous ECGs available [facility] STV MUSE Result, Unknown Provider - 05/09/2021 Sinus tachycardia Otherwise normal ECG No previous ECGs available [facility] Work Phone: XR CHEST (2 VW)on 05-09-2021 [...] Singh Calero MD 05/09/21 Final result Normal [facility] No acute airspace disease identified. [facility] EXAMINATION: TWO XRAY VIEWS OF THE [...] effusion. No acute osseous abnormality is identified. [facility] Singh Blakely MD - 05/09/2021 EXAMINATION: TWO [...] identified. IMPRESSION: No acute airspace disease identified. [facility] Phone: XR CHEST (2 VW)Ordered By: Carlos Calero on 05-09-2021 [place] Phone: APTTon 05-08-2021 aPTT Coag (Bld) [Time] 23.1 s Normal 20.5-30.5 [facility] Comment on above: Result Comment: IV Heparin Therapy Range: 48.6-77.8 Performed By: #### C BC, PT, PTT, BMP #### [facility] [address] [place], [place] [phone] [employer] T[employer] Winder Helper: Good Melendez MD #### ANICOT #### [facility] [address] [place] [address] [employer] Tube Winder Helper: Troy Link MD aPTT Coag (Bld) [Time] 23.1 s [facility] Comment on above: IV Heparin Therapy Range: 48.6-77.8 Basic Metabolic Panelon - Anion gap [Moles/Vol] 15 mmol/L 9 - 17 mmol/L [facility] Calcium [Mass/Vol] 9.4 mg/dL 8.6 - 10. 4 mg/dL [facility] Chloride [Moles/Vol] 103 mmol/L 98 - 10 7 mmol/L [facility] CO2 [Moles/Vol] 19 mmol/L Low 20 - 31 mmol/L [facility] Creatinine [Mass/Vol] 1.59 mg/dL High 0.70 - 1.20 mg/dL [facility] GFR 55 mL/min Low >60 [facility] GFR Non- 45 mL/min Low >60 [facility] GFR/1.73 sq M.predicted MDRD (S/P/Bld) [Vol rate/Area] [facility] Comment on above: Average GFR for 50-5 9 years old: 93 mL/min/1.73sq m Chronic Kidney Disease: <60 mL/min/1.73sq m Kidney failure: <15 mL/min/1.73sq m eGFR calculated using average adult body mass. Additional eGFR calculator available at: http://www.Ridejoy/multiple_crcl_2012.htm Glucose [Mass/Vol] 141 mg/dL High 70 - 99 mg/dL [facility] Interpretation and review of laboratory results Abnormal [facility] Potassium [Moles/Vol] 5.3 mmol/L 3.7 - 5.3 mmol/L [facility] Sodium [Moles/Vol] 137 mmol/L 135 - 144 mmol/L [facility] Urea nitrogen (BldV) [Mass/Vol] 37 mg/dL High 6 - 20 mg/dL [facility] Basic Metabolic Profon 05-08 (cont.) Normal [facility] Comment on above: Result Comment: Aver age GFR for 50-59 years old: 93 mL/min/1.73sq m Chronic Kidney Disease: <60 mL/min/1.73sq m Kidney failure: <15 mL/min/1.73sq m eGFR calculated using average adult body mass. Additional eGFR calculator available at: http://www.Dataslide.com/multiple_crcl_2012.htm Performed By: #### C BC, PT, PTT, BMP #### [address] [address] [employer] W[employer] Helper: Good Melendez MD #### ANICOT #### [address] [id number] [employer] Winder Helper: Troy Link MD Anion gap [Moles/Vol] 15 mmol/L Normal 9-17 [facility] Comment on above: Performed By: #### C BC, PT, PTT, BMP #### [address] [address] [employer] Winder Helper: Good Melendez MD #### ANICOT #### [address] [id number] [employer] Winder Helper: Troy Link MD Calcium [Mass/Vol] 9.4 mg/dL Normal 8.6-10.4 [facility] Comment on above: Performed By: #### C BC, PT, PTT, BMP #### [address] [address] [employer] Winder Helper: Good Melendez MD #### ANICOT #### [address] [phone] [employer] Winder Helper: Troy Link MD Chloride [Moles/Vol] 103 mmol/L Normal 98-107 [facility] Comment on above: Performed By: #### C BC, PT, PTT, BMP #### [address] [address] [employer] Winder Helper: Good Melendez MD #### ANICOT #### [facility] [address] [place] [id number] [employer] Winder Helper: Troy Link MD CO2 [Moles/Vol] 19 mmol/L Low 20-31 [facility] Comment on above: Performed By: #### C BC, PT, PTT, BMP #### [address] [address] [employer] Winder Helper: Good Melendez MD #### ANICOT #### [facility] [address] [place], [place] [id number] [employer] Winder Helper: Troy Link MD Creatinine [Mass/Vol] 1.59 mg/dL High 0.70-1.20 [facility] Comment on above: Performed By: #### C BC, PT, PTT, BMP #### [address] [phone] [employer] Winder Helper: Good Melendez MD #### ANICOT #### [facility] [address] [place], [place] [id number] [employer] Winder Helper: Troy Link MD GFR, Amer 55 mL/min Low >60 [facility] Comment on above: Performed By: #### C BC, PT, PTT, BMP #### [address] [address] [employer] Winder Helper: Good Melendez MD #### ANICOT #### [facility] [address] [place], [place] [phone] [employer] Winder Helper: Troy Link MD GFR,non Amer 45 mL/min Low >60 [facility] Comment on above: Performed By: #### C BC, PT, PTT, BMP #### [address] [address] [employer] Winder Helper: Good Melendez MD #### ANICOT #### [facility] [address] [place], [place] [id number] [employer] Winder Helper: Troy Link MD Glucose [Mass/Vol] 141 mg/dL High 70-99 [facility] Comment on above: Performed By: #### C BC, PT, PTT, BMP #### [address] [address] [employer] Winder Helper: Good Melendez MD #### ANICOT #### [facility] [address] [place] [address] [employer] Winder Helper: Troy Link MD Potassium [Moles/Vol] 5.3 mmol/L Normal 3.7-5.3 [facility] Comment on above: Performed By: #### C BC, PT, PTT, BMP #### [address] [phone] [employer] Winder Helper: Good Melendez MD #### ANICOT #### [facility] [address] [place] [phone] [employer] Winder Helper: Troy Link MD Sodium [Moles/Vol] 137 mmol/L Normal 135-144 [facility] Comment on above: Performed By: #### C BC, PT, PTT, BMP #### [address] [address] [employer] W[employer] Helper: Good Melendez MD #### ANICOT #### [facility] [address] [place], [place] [id number] [employer] Winder Helper: Troy Link MD Urea nitrogen [Mass/Vol] 37 mg/dL High 6-20 [facility] Comment on above: Performed By: #### C BC, PT, PTT, BMP #### [address] [address] [employer] W[employer] Helper: Good Melendez MD #### ANICOT #### [facility] [address] [place], [place] [id number] [employer] Winder Helper: Troy Link MD CBCon 05-08-2021 Erythrocyte distribution width (RBC) [Ratio] 14.1 % Normal 11.8-14.4 [facility] Comment on above: Performed By: #### C BC, PT, PTT, BMP #### [address] [address] [employer] W[employer] Helper: Good Melendez MD #### ANICOT #### [facility] [address] [place] [address] [employer] Winder Helper: Troy Link MD Hematocrit (Bld) [Volume fraction] 43.6 % Normal 40.7-50.3 [facility] Comment on above: Performed By: #### C BC, PT, PTT, BMP #### [address] [address] [employer] W[employer] Helper: Good Melendez MD #### ANICOT #### [address] [phone] [employer] Winder Helper: Troy Link MD Hemoglobin (Bld) [Mass/Vol] 13.5 g/dL Normal 13.0-17.0 [facility] Comment on above: Performed By: #### C BC, PT, PTT, BMP #### [address] [phone] [employer] Helper: Good Melendez MD #### ANICOT #### [facility] [address] [place] [phone] [employer] Winder Helper: Troy Link MD MCH (RBC) [Entitic mass] 29.4 pg Normal 25.2-33.5 [facility] Comment on above: Performed By: #### C BC, PT, PTT, BMP #### [address] [phone] [employer] Helper: Good Melendez MD #### ANICOT #### [facility] [address] [place], [place] [id number] [employer] Winder Helper: Troy Link MD MCHC (RBC) [Mass/Vol] 31.0 g/dL Normal 28.4-34.8 [facility] Comment on above: Performed By: #### C BC, PT, PTT, BMP #### [address] [id number] [employer] Winder Helper: Good Melendez MD #### ANICOT #### [facility] [address] [place], [place] [id number] [employer] Winder Helper: Troy Link MD MCV (RBC) [Entitic vol] 95.0 fL Normal 82.6-102.9 [facility] Comment on above: Performed By: #### C BC, PT, PTT, BMP #### [address] [phone] [employer] Winder Helper: Good Melendez MD #### ANICOT #### [address] [address] [employer] Winder Helper: Troy Link MD NRBC Automated 0.0 per 100 WBC Normal 0.0 [facility] Comment on above: Performed By: #### C BC, PT, PTT, BMP #### [address] [phone] [employer] Winder Helper: Good Melendez MD #### ANICOT #### [facility] [address] [place] [address] [employer] Winder Helper: Troy Link MD Platelet mean volume (Bld) [Entitic vol] 8.7 fL Normal 8.1-13.5 [facility] Comment on above: Performed By: #### C BC, PT, PTT, BMP #### [address] [phone] [employer] Winder Helper: Good Melendez MD #### ANICOT #### [facility] [address] [place], [place] [id number] [employer] Winder Helper: Troy Link MD Platelets (Bld) [#/Vol] 279 10*3/uL Normal 138-453 [facility] Comment on above: Performed By: #### C BC, PT, PTT, BMP #### [facility] [address] [place] [address] [employer] W[employer] Helper: Good Melendez MD #### ANICOT #### [facility] [address] [place] [address] [employer] Winder Helper: Troy Link MD RBC (Bld) [#/Vol] 4.59 10*6/uL Normal 4.21-5.77 [facility] Comment on above: Performed By: #### C BC, PT, PTT, BMP #### [address] [address] [employer] Winder Helper: Good Melendez MD #### ANICOT #### [facility] [address] [place] [address] [employer] Winder Helper: Troy Link MD WBC (Bld) [#/Vol] 8.9 10*3/uL Normal 3.5-11.3 [facility] Comment on above: Performed By: #### C BC, PT, PTT, BMP #### [address] [address] [employer] Winder Helper: Good Melendez MD #### ANICOT #### [facility] [address] [place] [address] Sp[employer] Winder Helper: Troy Link MD Hematocrit (Bld) [Volume fraction] 43.6 % 40.7 - 50.3 % [facility] Hemoglobin.gastroint estinal spec 1 Ql (Stl) 13.5 g/dL 13.0 - 17.0 g/dL [facility] [employer] MCH (RBC) [Entitic mass] 29.4 pg 25.2 - 33.5 pg [facility] MCHC (RBC) [Mass/Vol] 31.0 g/dL 28.4 - 34.8 g/dL [facility] MCV (RBC) [Entitic vol] 95.0 fL 82.6 - 102.9 fL [facility] NRBC Automated 0.0 0.0 per 100 WBC [facility] Platelet distribution width (Bld) [Ratio] 14.1 % 11.8 - 14.4 % [facility] Platelet mean volume (Bld) [Entitic vol] 8.7 fL 8.1 - 13.5 fL [facility] Platelets (Bld) [#/Vol] 279 10*3/uL [facility] RBC (Bld) [#/Vol] 4.59 10*6/uL 4.21 - 5.7 7 m/uL [facility] WBC (Bld) [#/Vol] 8.9 10*3/uL [facility] No Panel Informationon 05-08 [facility] PTon 05-08-2021 INR Coag (PPP) [Relative time] 1.1 {INR} Normal [facility] Comment on above: Result Comment: Therapeutic Range: Moderate Anticoagulant Intensity: INR = 2.0-3.0 High Anticoagulant Intensity: INR = 2.5-3.5 Performed By: #### C BC, PT, PTT, BMP #### [facility] [place], [place] [id number] [employer] Winder Helper: Good Melendez MD #### JIMENA #### [facility] [address] [place] [address] Spiral Tube Winder Helper: Troy Link MD PT Coag (PPP) [Time] 11.2 s Normal 9.1-12.3 [facility] Comment on above: Performed By: #### C BC, PT, PTT, BMP #### [facility] [place], [place] [phone] [employer] Winder Helper: Good Melendez MD #### YASSINET #### [facility] [address] [place] [address] Sp[employer] Tube Winder Helper: Troy Link MD Protime-INRon 05-08-2021 INR Coag (Bld) [Relative time] 1.1 {INR} [facility] Comment on above: Therapeutic Range: Moderate Anticoagulant Intensity: INR = 2.0-3.0 High Anticoagulant Intensity: INR = 2.5-3.5 PT Coag (PPP) [Time] 11.2 s [employer] XR CHEST (2 VW)on 05-08-2021 Radiology Study observation (narrative) [email or web address] Work Phone: CT LUMBAR SPINE W CONTRASTon 02-28-2021 CT LUMBAR SPINE W CONTRAST [facility] Department of Radiology [address] [place] [id number] ======== Patient Name: SUKHDEEP SIMENTAL : [...] above Electronically signed: Petar Mg. Transcribed by: [email or web address], User Resident: Electronically Signed by: PETAR MG @ 03/01/2021 02:21 PM [place] [facility] LUMBAR MYELOGRAMon 01-04-202 2 LUMBAR MYELOGRAM [facility] Department of Radiology [address] [place] [address] ======== Patient Name: SUKHDEEP SIMENTAL : 1965 Sex: M Age: Race: White Pt. Location: Patient Status: O Ordered Date: 02/13/2021 9:35:00 AM Completed Date: 02/28/2021 02:06 PM Requesting Provider: JASON MILLER Attending Provider: JASON MILLER Report Copy To: Signs & Symptoms: Z98.1 Arthrodesis status I10 History: [phone] Is patient on thinners? Eliquis hold 48hrs. 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 Consent was obtained. Timeout: Garvin protocol timeout verification performed. PROCEDURE: Estimated blood [...] report. Electronically signed: Petar Mg. Transcribed by: [email or web address], User Resident: OCHOA HONG Electronically Signed by: PETAR MG @ 02/28/2021 03:13 PM I personally read this/these film(s) with this resident Normal [facility] LUMBAR SPINE 4 OR 5 [facility] LUMBAR SPINE 4 OR 5 [facility] Department of Radiology [address] [place] [id number] ======== Patient Name: SUKHDEEP SIMENTAL : 1965 Sex: M Age: Race: White Pt. Location: 84 Patient Status: D Ordered Date: 02/01/2021 1:05:00 PM Completed Date: 02/01/2021 01:12 PM Requesting Provider: JASON MILLER Attending Provider: JASON MILLER Report Copy To: Signs & Symptoms: M54.16 Radiculopathy, lumbar region I10 History: [place] Comments: Views (X-RAY, LUMBAR SPINE): AP, Lateral, [...] Osteopenia. Electronically signed: Ahsan Farmer. Transcribed by: [email or web address], User Resident: Electronically Signed by: AHSAN FARMER @ 02/02/2021 10:14 AM Normal [facility] Comment on above: Order Comment: Views (X-RAY, LUMBAR SPINE): AP, Lateral, L5-S1 Spot, Flexion, Extension C REACTIVE PROTEINon 021 CRP [Mass/Vol] 9.6 mg/L High 0.0-7.0 [facility] Comment on above: Performed By: #### 6 1405 #### [facility] [address] CBC W/DIFFon 12-15-2020 ABS IMM GRANS 0.1 10*3/uL Normal 0.0-0.2 [facility] Comment on above: Performed By: #### 5 6505, 56515 #### [facility] [address] [place] [address], [facility] ABS NEUTROPHILS 6.1 10*3/uL Normal 1.6-7.[address] [facility] Comment on above: Performed By: #### 5 6505, 07355 #### [facility] [address] [place] [address], [facility] Basophils (Bld) [#/Vol] 0.1 10*3/uL Normal 0.0-0.2 [facility] Comment on above: Performed By: #### 5 6505, 05264 #### [facility] [address] [place] [address], [facility] Basophils/100 WBC (Bld) 0.8 % Normal 0.0-1.0 [facility] Comment on above: Performed By: #### 5 6505, 24279 #### [facility] [address] [facility] [place] [place] [address], [facility] Eosinophils (Bld) [#/Vol] 0.4 10*3/uL Normal 0.0-0.5 [facility] Comment on above: Performed By: #### 5 6505, 18207 #### [facility] [address] [facility] [place] [address], [facility] Eosinophils/100 WBC (Bld) 4.1 % Normal 0.0-6.0 [facility] Comment on above: Performed By: #### 5 6505, 74468 #### [facility] [address] [facility] [place] [address], [facility] Erythrocyte distribution width (RBC) [Ratio] 12.6 % Normal 11.5-15.0 [facility] Comment on above: Performed By: #### 5 6505, 48516 #### [facility] [address] [place] [address], [facility] Hematocrit (Bld) [Volume fraction] 40.2 % Normal 39.0-50.0 [facility] Comment on above: Performed By: #### 5 6505, 57373 #### [facility] [address] [place] [address], [facility] Hemoglobin (Bld) [Mass/Vol] 12.6 g/dL Low 13.0-17.0 [facility] Comment on above: Performed By: #### 5 6505, 89367 #### [facility] [address] [facility] [place] [address], [facility] IMMATURE GRANS 0.7 % Normal 0.0-1.0 [facility] Comment on above: Performed By: #### 5 6505, 78799 #### [facility] [address] [facility]. [address] Lymphocytes (Bld) [#/Vol] 2.0 10*3/uL Normal 1.2-4.0 [facility] Comment on above: Performed By: #### 5 6505, 87661 #### [facility] [address] [facility] [place] [address], [facility] Lymphocytes/100 WBC (Bld) 20.6 % Normal 20.0-45.0 [facility] Comment on above: Performed By: #### 5 6505, 55664 #### [facility] [address] [facility] [place] [address], [facility] MCH (RBC) [Entitic mass] 30.0 pg Normal 27.0-33.0 [facility] Comment on above: Performed By: #### 5 6505, 25740 #### [facility] [address] [place] [address], [facility] MCHC (RBC) [Mass/Vol] 31.3 g/dL Low 32.0-35.0 [facility] Comment on above: Performed By: #### 5 6505, 32517 #### [facility] [address] [place] [address], [facility] MCV (RBC) [Entitic vol] 95.7 fL Normal 82.0-98.0 [facility] Comment on above: Performed By: #### 5 6505, 90733 #### [facility] [address] [place] [address], [facility] Monocytes (Bld) [#/Vol] 1.2 10*3/uL High 0.1-1.0 [facility] Comment on above: Performed By: #### 5 6505, 63312 #### [facility] [address] [place] [address], [facility] MONOS 11.9 % Normal 5.0-12.0 [facility] Comment on above: Performed By: #### 5 6505, 39790 #### [facility] [address] [facility] [place] [place] [address], [facility] Neutrophils/100 WBC (Bld) 61.9 % Normal 40.0-72.0 [facility] Comment on above: Performed By: #### 5 6505, 86671 #### [facility] [address] [place] [address], [facility] Nucleated RBC/100 WBC (Bld) [Ratio] 0 % Normal 0-0 [facility] Comment on above: Performed By: #### 5 6505, 18702 #### [facility] [address] [place] [address], [facility] PLAT CNT 335 10*3/uL Normal 150-400 [facility] Comment on above: Performed By: #### 5 6505, 29914 #### [facility] [address] [place] [id number], [facility] RBC (Bld) [#/Vol] 4.20 10*6/uL Normal 4.20-5.70 [facility] Comment on above: Performed By: #### 5 6506, 37738 #### [facility] [address] [facility]. [address] WBC (Bld) [#/Vol] 9.86 10*3/uL Normal 4.00-10.60 [facility] Comment on above: Performed By: #### 5 6506, 53402 #### [facility] [address] [facility] [place] [id number] [place] [address] KNEE RIGHT 4 VWSon KNEE RIGHT 4 S [facility] Department of Radiology [address] [place] [address] ======== Patient Name: SUKHDEEP SIMENTAL [...] report. Electronically signed: Layo Jimenes. Transcribed by: [email or web address], User Resident: LAYO CORDERO Electronically Signed by: LAYO JIMENES @ 12/16/2020 09:18 AM I personally read this/these film(s) with this resident Normal [facility] Comment on above: Order Comment: evalu ate SEDIMENTATION RATEon 021 SED RATE 77 mm/hr High 0-10 [facility] Comment on above: Performed By: #### 5 6506, 94996 #### [facility] [address] COVID-19 Positive/Negativeon 05-05-2020 COVID-19 Positive/Negative Negative Negative [facility] Comment on above: Reference: NegativeT esting for SARS-CoV-2 by RT-PCRThis test was developed and its performance characteristics determined by [employer] ([employer]) and validated at the [facility]. This test has not been FDA [...] non-blacks MDRD (S/P/Bld) [Vol rate/Area] mL/min/{1.73_m2} [facility] Otheron 05-05-2020 GFR/1.73 sq M.predicted MDRD (S/P/Bld) [Vol rate/Area] mL/min/{1.73_m2} [facility] Comment on above: GFR estimated refere nce range: According to KDOQI guidelines, <60 ml/min/1.73m2 is sufficient to diagnose a patient with chronic kidney disease. Pharmacy Creatinine Clearance (Chem N/A [facility] Coronavirus 2019 PCR Interp N/A [facility] Serum or plasma calcium yeni urement (mass/volume)on 05-05-2020 Calcium [Mass/Vol] 8.6 mg/dL 8.2-10.2 [facility] Serum or plasma chloride xi surement (moles/volume)on 05-05-2020 Chloride [Moles/Vol] 104 mmol/L 95-114 [facility] Serum or plasma creatinine m easurement with calculation of estimated glomerular filtron 05-05-2020 Creatinine [Mass/Vol] 1.14 mg/dL 0.64-1.27 [facility] Serum or plasma glucose yeni urement (mass/volume)on 05-05-2020 Glucose [Mass/Vol] 178 mg/dL 70-100 [facility] Comment on above: ADA recommended refe rence rangeRandom Glucose Reference Range is dependent on time and content of last meal. Glucose of more than 200 mg/dL in a nonstressed, ambulatory subject supports the diagnosis of Diabetes Mellitus. Serum or plasma potassium me asurement (moles/volume)on 05-05-2020 Potassium [Moles/Vol] 4.0 mmol/L 3.5-5.1 [facility] Serum or plasma sodium measu rement (moles/volume)on 05-05-2020 Sodium [Moles/Vol] 141 mmol/L 136-146 [facility] Serum or plasma total carbon dioxide measurement (moles/volume)on 05-05-2020 CO2 [Moles/Vol] 27.4 mmol/L 22.0-30.0 [facility] Serum or plasma urea nitroge n measurement (mass/volume)on 05-05-2020 Urea nitrogen [Mass/Vol] 18 mg/dL 9-23 [facility] .eGFRon 06-10-2019 eGFR AA >60 Normal >=60 [facility] Comment on above: Result Comment: Resu lt = 0-14.9 mL/min/1.73 m2 Kidney failure or Dialysis Result = 15-29 mL/min/1.73 m2 Severe decrease in GFR Result = 30-59 mL/min/1.73 m2 Moderate decrease in GFR Result >= 60 mL/min/1.73 m2 Normal or increased GFR Performed By: #### E GFR #### [address] [address] eGFR Non-AA >60 Normal >=60 [facility] Comment on above: Result Comment: Resu lt [...] dosing. Performed By: #### E GFR #### [address] [address] Basic Metabolic Profileon Anion gap [Moles/Vol] 15 mmol/L Normal 7-17 [facility] Comment on above: Performed By: #### C [id number] #### [address] [address] Calcium [Mass/Vol] 9.8 mg/dL Normal 8.5-10.3 [facility] Comment on above: Performed By: #### C [id number] #### [address] [address] Chloride [Moles/Vol] 103 mmol/L Normal 98-110 [facility] Comment on above: Performed By: #### C [id number] #### [address] [address] CO2 [Moles/Vol] 27 mmol/L Normal 22-32 [facility] Comment on above: Performed By: #### C [id number] #### [address] [address] Creatinine [Mass/Vol] 0.98 mg/dL Normal 0.61-1.24 [facility] Comment on above: Performed By: #### C [id number] #### [address] [address] Glucose [Mass/Vol] 198 mg/dL High 70-99 [facility] Comment on above: Performed By: #### C [id number] #### [address] [address] Potassium [Moles/Vol] 4.0 mmol/L Normal 3.4-4.8 [facility] Comment on above: Performed By: #### C [id number] #### [address] [address] Sodium [Moles/Vol] 141 mmol/L Normal 133-142 [facility] Comment on above: Performed By: #### C [id number] #### [address] [address] Urea nitrogen [Mass/Vol] 18 mg/dL Normal 8-26 [facility] Comment on above: Performed By: #### C [id number] #### [address] [address] Urea nitrogen/Creatinine [Mass ratio] 18.4 mg/mg Normal 10.0-20.0 [facility] Comment on above: Performed By: #### C [id number] #### [address] [address] CBCon 06-10-2019 Erythrocyte distribution width (RBC) [Ratio] 13.0 % Normal 11.6-14.8 [facility] Comment on above: Performed By: #### C BCI #### [address] [address] Hematocrit (Bld) [Volume fraction] 46.2 % Normal 41.0-53.0 [facility] Comment on above: Performed By: #### C BCI #### [address] [address] Hemoglobin (Bld) [Mass/Vol] 16.2 g/dL Normal 13.5-17.5 [facility] [facility] Comment on above: Performed By: #### C BCI #### [address] [address] MCH (RBC) [Entitic mass] 32.1 pg Normal 27.0-35.0 [facility] Comment on above: Performed By: #### C BCI #### [address] [address] MCHC (RBC) [Mass/Vol] 35.0 % Normal 31.0-37.0 [facility] Comment on above: Performed By: #### C BCI #### [address] [address] MCV (RBC) [Entitic vol] 91.6 fL Normal 80.0-100.0 [facility] Comment on above: Performed By: #### C BCI #### [address] [address] Platelet mean volume (Bld) [Entitic vol] 7.5 fL Normal 6.7-10.6 [facility] Comment on above: Performed By: #### C BCI #### [address] [address] Platelets (Bld) [#/Vol] 263 x10*3/mcL Normal 150-350 [facility] Comment on above: Performed By: #### C BCI #### [address] [address] RBC (Bld) [#/Vol] 5.04 x10*6/mcL Normal 4.30-5.80 [facility] Comment on above: Performed By: #### C BCI #### [address] [address] WBC (Bld) [#/Vol] 9.7 x10*3/mcL Normal 4.5-11.0 [facility] Comment on above: Performed By: #### C BCI #### [address] [address] Hgb A1con 06-10-2019 HbA1c (Bld) [Mass fraction] 134 mg/dL High 68-114 [facility] Comment on above: Result Comment: Math ematical Calc approx. The mean gluc equivalency of A1c Performed By: #### H BA1C #### [address] [address] HbA1c (Bld) [Mass fraction] 6.3 % A1c High 4.0-5.6 [facility] Comment on above: Result Comment: Refe rence Range: 4.0 - 5.6 % Normal 5.7 - 6.4 % Pre-Diabetes > 6.5 % Diabetes Performed By: #### H BA1C #### [address] [address] MRSA, PCRon 06-10-2019 INR Coag (Bld) [Relative time] Negative Normal [facility] Comment on above: Result Comment: The [employer] Xpert MRSA Assay is a qualitative in [...] clinician. Performed By: #### M RSAPC #### [address] [address] PTon 06-10-2019 INR Coag (PPP) [Relative time] 1.0 {INR} Normal <=3.5 [facility] Comment on above: Result Comment: INR has no normal range. INR Therapeutic range is: 2.0-3.0 (AF, CVA, TIAs, DVT prophylaxis, acute DVT) 2.5-3.5 ([facility], recurrent thrombosis/emboli) Performed By: #### P TINR #### [address] [address] PT Coag (PPP) [Time] 11.9 s Normal 8.9-11.9 [facility] Comment on above: Performed By: #### P TINR #### [address] [address] PTTon 06-10-2019 aPTT Coag (Bld) [Time] 23.0 s Normal 19.2-27.8 [facility] Comment on above: Performed By: #### P TT #### [address] [address] XR Chest 2 Viewson 0 XR Chest [...] Electronically Signed in Other Vendor System) Normal [facility] XR LUMBAR SPINE (2-3 VIEWS)o n 04-16-2019 [...] Juwan Kumar MD 04/16/19 Final result Normal [facility] Limited range of motion without evidence of instability. Multilevel disc degeneration. [facility] [place] EXAMINATION: 2 XRAY VIEWS OF THE LUMBAR SPINE 04/16/2019 10:21 am COMPARISON: None. HISTORY: ORDERING SYSTEM PROVIDED HISTORY: Injury Back pain after fall. FINDINGS: Lateral flexion extension views of the lumbar spine. With extension, no instability. Range of motion is reduced. With flexion, no substantial interval movement. No pathologic malalignment. Diffuse disc degeneration greatest in the lower lumbar spine. Spinous processes appear intact. [facility] [place] Jos[employer]at, [employer] Incoming Radiant Results From [email or web address] - 04/16/2019 11:16 AM EST EXAMINATION: 2 [...] without evidence of instability. Multilevel disc degeneration. [facility] [place] CT LUMBAR SPINE WO CONTRASTo n 04-11-2019 [...] Ahsan Guidry MD 04/11/19 Final result Normal [facility] XR PELVIS (1-2 VIEWS)on 03-28 XR [...] Ahsan Guidry MD 04/11/19 Final result Normal [facility] No acute findings. [place] Phone: EXAMINATION: ONE XRA Y VIEW OF THE PELVIS 04/11/2019 1:24 pm COMPARISON: None. HISTORY: ORDERING SYSTEM PROVIDED HISTORY: fall right buttock pain TECHNOLOGIST PROVIDED HISTORY: fall right buttock pain Reason for Exam: fall buttocks pain Acuity: Acute Type of Exam: Initial FINDINGS: No acute fracture. No widening of the sacroiliac joints. Degenerative changes within the lower lumbar spine. Mild bilateral hip osteoarthritis. [place] Phone: Josafat, Mhpn Incoming Radiant Results From [email or web address] - 04/11/2019 2:02 PM EST EXAMINATION: ONE [...] bilateral hip osteoarthritis. IMPRESSION: No acute findings. [email or web address] Work Phone: Vital Signs Date Time Vital Sign Value Performing Clinician Facility 02-13-2024 11:22-0500 Body mass index (BMI) [Ratio] 38.99 kg/m2 Ahsan Flynn PA Work Phone: [facility] 02-13-2024 11:22-0500 Body weight 119.75 kg Ahsan Flynn PA Work Phone: [facility] 02-13-2024 11:22-0500 Diastolic blood pressure 100 mm[Hg] Ahsan Flynn PA Work Phone: [facility] 02-13-2024 11:22-0500 Heart rate 92 /min Ahsan Flynn PA Work Phone: [facility] 02-13-2024 11:22-0500 Respiratory rate 18 /min Ahsan Flynn PA Work Phone: [facility] 02-13-2024 11:22-0500 Systolic blood pressure 150 mm[Hg] Ahsan Flynn PA Work Phone: [facility] [employer] [facility] 12-05-2023 10:05-0400 Body height 175.3 cm Ahsan Flynn PA Work Phone: [facility] [employer] [facility] 12-05-2023 10:05-0400 Body mass index (BMI) [Ratio] 39.28 kg/m2 Ahsan Flynn PA Work Phone: [facility] [employer] [facility] 12-05-2023 10:05-0400 Body weight 120.66 kg Ahsan Flynn PA Work Phone: [facility] [employer] [facility] 12-05-2023 10:05-0400 Diastolic blood pressure 90 mm[Hg] Ahsan NOVAK Work Phone: [facility] 12-05-2023 10:05-0400 Heart rate 91 /min Ahsan NOVAK Work Phone: [facility] 12-05-2023 10:05-0400 Respiratory rate 16 /min Ahsan NOVAK Work Phone: [facility] 12-05-2023 10:05-0400 SaO2% (BldA) [Mass fraction] 95 % Ahsan NOVAK Work Phone: [facility] 12-05-2023 10:05-0400 Systolic blood pressure 131 mm[Hg] Ahsan NOVAK Work Phone: [facility] 11-07-2023 11:09-0400 Body height 175.26 cm [facility] 11-07-2023 11:09-0400 Body mass index (BMI) [Ratio] 39 kg/m2 [facility] 11-07-2023 11:09-0400 Body temperature 97.4 [degF] [facility] 11-07-2023 11:09-0400 Body weight 119.86 kg [facility] 11-07-2023 11:09-0400 Diastolic blood pressure 85 mm[Hg] [facility] 11-07-2023 11:09-0400 Heart rate 88 /min [facility] 11-07-2023 11:09-0400 Respiratory rate 18 /min [facility] 11-07-2023 11:09-0400 SaO2% (BldA) [Mass fraction] 98 % [facility] 11-07-2023 11:09-0400 Systolic blood pressure 123 mm[Hg] [facility] 08-15-2023 11:27-0400 Diastolic blood pressure 84 mm[Hg] Ahsan NOVAK Work Phone: [facility] 08-15-2023 11:27-0400 Heart rate 110 /min Ahsan NOVAK Work Phone: [facility] 08-15-2023 11:27-0400 Respiratory rate 20 /min [facility]hsan Nienberg PA [facility] 08-15-2023 11:27-0400 Systolic blood pressure 126 mm[Hg] Ahsan Nienberg PA Work Phone: [facility] [employer] [facility] 02-14-2023 11:12-0500 Body height 175.3 cm Ahsan Nienberg PA Work Phone: [facility] 02-14-2023 11:12-0500 Body mass index (BMI) [Ratio] 39.43 kg/m2 Ahsan Nienberg PA Work Phone: [facility] [employer] [facility] 02-14-2023 11:12-0500 Body weight 121.11 kg Ahsan Nienberg PA Work Phone: [facility] [employer] [facility] 02-14-2023 11:12-0500 Diastolic blood pressure 94 mm[Hg] Ahsan Nienberg PA Work Phone: [facility] [employer] [facility] 02-14-2023 11:12-0500 Heart rate 89 /min Ahsan Nienberg PA [facility] 02-14-2023 11:12-0500 Respiratory rate 18 /min Ahsan Nienberg PA Work Phone: [facility] [employer] 02-14-2023 11:12-0500 SaO2% (BldA) [Mass fraction] 98 % Ahsan Nienberg PA Work Phone: [facility] [employer] [facility] 02-14-2023 11:12-0500 Systolic blood pressure 143 mm[Hg] Ahsan Nienberg PA Work Phone: [facility] 02-07-2023 14:37-0500 Body temperature 98.6 [degF] Riddhi Goss WELL TREATMENT OFFSIDER.FLYING TEACH[employer] Work Phone: [facility] 02-07-2023 14:37-0500 Body weight 122.92 kg Riddhi Goss WELL TREATMENT OFFSIDER.FLYING TEACHER Work Phone: [facility] 02-07-2023 14:37-0500 Diastolic blood pressure 80 mm[Hg] Riddhi Goss WELL TREATMENT OFFSIDER.FLYING TEACHER Work Phone: [facility] 02-07-2023 14:37-0500 Heart rate 79 /min Riddhi Goss WELL TREATMENT OFFSIDER.FLYING TEACHER Work Phone: [facility] 02-07-2023 14:37-0500 SaO2% (BldA) [Mass fraction] 98 % Riddhibrayan Goss WELL TREATMENT OFFSIDER.FLYING TEACHER Work Phone: [facility] 02-07-2023 14:37-0500 Systolic blood pressure 157 mm[Hg] Riddhi Goss WELL TREATMENT OFFSIDER.FLYING TEACHER Work Phone: [facility] 02-04-2023 09:16-0500 Blood Pressure Location Cecelia MURILLO [facility] 02-04-2023 09:16-0500 Diastolic blood pressure 88 mm[Hg] Cecelia MURILLO [facility] 02-04-2023 09:16-0500 Heart rate 79 /min Cecelia MURILLO [facility] 02-04-2023 09:16-0500 Respiratory rate 16 /min Cecelia MURILLO [facility] 02-04-2023 09:16-0500 Systolic blood pressure 139 mm[Hg] Cecelia MURILLO [facility] 12-20-2022 14:26-0400 Body height 175.3 cm Singh Morgan PA-C Work Phone: [facility] 12-20-2022 14:26-0400 Body weight 123.11 kg Singh Morgan PA-C Work Phone: [facility] 12-20-2022 14:26-0400 Diastolic blood pressure 84 mm[Hg] Singh Morgan PA-C Work Phone: [facility] 12-20-2022 14:26-0400 Heart rate 76 /min Singh NOVAK-C Work Phone: [facility] 12-20-2022 14:26-0400 SaO2% (BldA) [Mass fraction] 97 % Singh NOVAK-C Work Phone: [facility] 12-20-2022 14:26-0400 Systolic blood pressure 165 mm[Hg] Singh NOVAK-C Work Phone: [facility] 12-06-2022 15:00-0400 Body height 175.26 cm Oumou Reji Other [employer] Other 12-06-2022 15:00-0400 Body mass index (BMI) [Ratio] 39.9 kg/m2 Oumou Reji Other [employer] Other 12-06-2022 15:00-0400 Body temperature 98.1 [degF] Oumou Reji Other [employer] Other 12-06-2022 15:00-0400 Body weight 122.56 kg Oumou Reji Other [employer] Other 12-06-2022 15:00-0400 Diastolic blood pressure 81 mm[Hg] Oumou Reji Other [employer] Other 12-06-2022 15:00-0400 Respiratory rate 20 /min Oumou Reji Other [employer] Other 12-06-2022 15:00-0400 SaO2% (BldA) [Mass fraction] 97 % Oumou Reji Other [employer] Other 12-06-2022 15:00-0400 Systolic blood pressure 127 mm[Hg] Oumou Weinstein Other [facility] [employer] Other 11-05-2022 14:17-0400 Body height 175.3 cm Thomas Mathew MD Work Phone: [facility] 11-05-2022 14:17-0400 Body weight 123.97 kg Thomas Mathew MD Work Phone: [facility] 11-05-2022 14:17-0400 Diastolic blood pressure 84 mm[Hg] Thomas Mathew MD Work Phone: [facility] 11-05-2022 14:17-0400 Heart rate 66 /min Thomas Mathew MD Work Phone: [facility] 11-05-2022 14:17-0400 SaO2% (BldA) [Mass fraction] 100 % Thomas Mathew MD Work Phone: [facility] 11-05-2022 14:17-0400 Systolic blood pressure 156 mm[Hg] Thomas Mathew MD Work Phone: [facility] 10-17-2022 15:41-0400 Blood Pressure Location Maite SQUIRES [facility] 10-17-2022 15:41-0400 Diastolic blood pressure 84 mm[Hg] Maite SQUIRES [facility] 10-17-2022 15:41-0400 Heart rate 70 /min Maite SQUIRES [facility] 10-17-2022 15:41-0400 Respiratory rate 16 /min Maite SQUIRES [facility] 10-17-2022 15:41-0400 Systolic blood pressure 118 mm[Hg] Maite SQUIRES [facility] 06-21-2022 10:20-0400 Body height 175.26 cm Oumou Reji Other [employer] Other 06-21-2022 10:20-0400 Body mass index (BMI) [Ratio] 40.02 kg/m2 Oumou Reji Other [employer] Other 06-21-2022 10:20-0400 Body temperature 97.6 [degF] Oumou Reji Other [employer] Other 06-21-2022 10:20-0400 Body weight 122.93 kg Oumou Reji Other [employer] Other 06-21-2022 10:20-0400 Diastolic blood pressure 80 mm[Hg] Oumou Reji Other [employer] Other 06-21-2022 10:20-0400 Respiratory rate 20 /min Oumou Reji Other [employer] Other 06-21-2022 10:20-0400 SaO2% (BldA) [Mass fraction] 97 % Oumou Erji Other [employer] Other 06-21-2022 10:20-0400 Systolic blood pressure 114 mm[Hg] Oumou Reji Other [employer] Other 03-19-2022 09:48-0500 Blood Pressure Location Cecelia MURILLO [facility] 03-19-2022 09:48-0500 Diastolic blood pressure 88 mm[Hg] Cecelia MURILLO [facility] 03-19-2022 09:48-0500 Heart rate 78 /min Cecelia MURILLO [facility] 03-19-2022 09:48-0500 Respiratory rate 16 /min Cecelia MURILLO [facility] 03-19-2022 09:48-0500 Systolic blood pressure 139 mm[Hg] Cecelia MURILLO [facility] 01-11-2022 11:15-0500 Body temperature 98.1 [degF] PHYSICIAN NO [facility] 01-11-2022 11:15-0500 Diastolic blood pressure 88 mm[Hg] PHYSICIAN NO [facility] 01-11-2022 11:15-0500 Heart rate 79 /min PHYSICIAN NO [facility] 01-11-2022 11:15-0500 Respiratory rate 18 /min PHYSICIAN NO [facility] 01-11-2022 11:15-0500 SaO2% (BldA) [Mass fraction] 96 % PHYSICIAN NO [facility] 01-11-2022 11:15-0500 Systolic blood pressure 137 mm[Hg] PHYSICIAN NO [facility] 12-15-2021 12:20-0400 Body height 175.26 cm Estephanie Lowry Other [employer] [facility] [employer] Other 12-15-2021 12:20-0400 Body mass index (BMI) [Ratio] 41.49 kg/m2 Estephanie Lowry Other [employer] Other 12-15-2021 12:20-0400 Body temperature 98.6 [degF] Estephanie Lowry Other [employer] Other 12-15-2021 12:20-0400 Body weight 127.46 kg Estephanie Lowry Other [employer] Other 12-15-2021 12:20-0400 Diastolic blood pressure 96 mm[Hg] Estephanie Lowry Other [employer] Other 12-15-2021 12:20-0400 Respiratory rate 18 /min Estephanie Lowry Other [employer] Other 12-15-2021 12:20-0400 SaO2% (BldA) [Mass fraction] 97 % Estephanie Lowry Other [employer] Other 12-15-2021 12:20-0400 Systolic blood pressure 132 mm[Hg] Estephanie Lowry Other [employer] Other 10-25-2021 14:00-0400 Body height 175.26 cm Oumou Reji Other [employer] Other 10-25-2021 14:00-0400 Body mass index (BMI) [Ratio] 42.02 kg/m2 Oumou Reji Other [employer] Other 10-25-2021 14:00-0400 Body temperature 96.8 [degF] Oumou Reji Other [employer] Other 10-25-2021 14:00-0400 Body weight 129.09 kg Oumou Reji Other [employer] Other 10-25-2021 14:00-0400 Diastolic blood pressure 69 mm[Hg] Oumou Reji Other [employer] Other 10-25-2021 14:00-0400 Respiratory rate 20 /min Oumou Reji Other [employer] Other 10-25-2021 14:00-0400 SaO2% (BldA) [Mass fraction] 98 % Oumou Reji Other [employer] Other 10-25-2021 14:00-0400 Systolic blood pressure 109 mm[Hg] Oumou Reji Other [employer] Other 05-26-2021 10:45-0400 Body temperature 98.8 [degF] Octavio Mcclellan [employer] Work Phone: [email or web address] 05-26-2021 10:45-0400 Respiratory rate 18 /min Octavio Mcclellan [employer] Work Phone: [email or web address] 05-26-2021 10:45-0400 SaO2% (BldA) [Mass fraction] 98 % Octavio Mcclellan [employer] Work Phone: [email or web address] 05-26-2021 07:30-0400 Heart rate 105 /min Octavio Mcclellan [employer] Work Phone: [email or web address] 05-25-2021 23:20-0400 Diastolic blood pressure 85 mm[Hg] Octavio Mcclellan [employer] Work Phone: [email or web address] 05-25-2021 23:20-0400 Systolic blood pressure 130 mm[Hg] Octavio Mcclellan [employer] Work Phone: [email or web address] 05-24-2021 10:15-0400 Body height 175.3 cm Octavio Mcclellan [employer] Work Phone: [email or web address] 05-24-2021 10:15-0400 Body mass index (BMI) [Ratio] 50.65 kg/m2 Octavio Mcclellan [employer] Work Phone: [email or web address] 05-24-2021 10:15-0400 Body weight 155.58 kg Octavio Mcclellan [employer] Work Phone: [email or web address] 05-08-2021 11:04-0400 Body height 175.3 cm St[facility] 2 [email or web address] 05-08-2021 11:04-0400 Body mass index (BMI) [Ratio] 51.98 kg/m2 [address] 05-08-2021 11:04-0400 Body temperature 97.3 [degF] [address] 05-08-2021 11:04-0400 Body weight 159.[address] 05-08-2021 11:04-0400 Diastolic blood pressure 83 mm[Hg] [address] 05-08-2021 11:04-0400 Heart rate 126 /min [address] 05-08-2021 11:04-0400 Respiratory rate 20 /min [address] [employer] 05-08-2021 11:04-0400 SaO2% (BldA) [Mass fraction] 95 % [address] 05-08-2021 11:04-0400 Systolic blood pressure 121 mm[Hg] [address] 01-08-2020 14:04-0500 BMI (Body Mass Index) 47.99 kg/m2 [facility] 01-08-2020 14:04-0500 Body Temperature 96.69 [degF] [facility] 01-08-2020 14:04-0500 Body weight 147.[address] [facility] 01-08-2020 14:04-0500 Height 175.[address] [facility] 04-11-2019 12:42-0500 BMI (Body Mass Index) 44.3 kg/m2 [employer] Work Phone: 04-11-2019 12:42-0500 Body Temperature 97.39 [degF] [employer] Work Phone: 04-11-2019 12:42-0500 Body weight 136.08 kg [employer] Work Phone: 04-11-2019 12:42-0500 BP Diastolic 98 mm[Hg] [employer] Phone: 04-11-2019 12:42-0500 BP Systolic 196 mm[Hg] Suzanne Knewton Phone: 04-11-2019 12:42-0500 Height 175.3 cm Suzanne Knewton Phone: 04-11-2019 12:42-0500 Pulse (Heart Rate) 72 /min Suzanne Knewton Phone: 04-11-2019 12:42-0500 Pulse Oximetry 96 % Suzanne Knewton Phone: 04-11-2019 12:42-0500 Respiratory Rate 16 /min Suzanne Knewton Phone: Encounters Encounter Date Encounter Type Care Provider Facility Start: 11-19-2024 End: 11-19-2024 ambulatory Yarely [place] Facility:[facility] Start: 11-19-2024 End: 11-19-2024 Patient encounter procedure Yarely [facility] [employer] Start: 11-13-2024 End: 11-13-2024 ambulatory Cecelia Fernandez Facility:[id number] Start: 08-07-2024 End: 08-07-2024 ambulatory Cecelia MURILLO Facility:[facility] Start: 08-07-2024 End: 08-07-2024 Patient encounter procedure Cecelia MURILLO [facility] [employer] Start: 06-22-2024 End: 06-22-2024 ambulatory Cecelia MURILLO Facility:[facility] Start: 06-17-2024 End: 06-17-2024 ambulatory [facility] Start: 05-18-2024 ambulatory [facility] Start: 05-18-2024 End: 05-18-2024 ambulatory [facility] Start: 04-10-2024 End: 04-21-2024 Telephone encounter Cherelle Oleary RN [facility] Start: 03-03-2024 End: 03-04-2024 Telephone encounter Cherelle Oleary RN [facility] Start: 02-13-2024 End: 02-13-2024 ambulatory AHSAN FLYNN [facility] Start: 02-13-2024 End: 02-13-2024 Office outpatient visit 15 minutes Ahsan Flynn PA Work Phone: [facility] Comment on above: Spinal stenosis, lum bar region, with neurogenic claudication (Primary Dx) Start: 02-03-2024 End: 02-03-2024 ambulatory Cecelia MURILLO Facility:[facility] Start: 02-03-2024 End: 02-03-2024 Patient encounter procedure Cecelia MURILLO [facility] Start: 12-05-2023 End: 12-05-2023 ambulatory AHSAN FLYNN [facility] Start: 12-05-2023 End: 12-05-2023 Office outpatient visit 15 minutes Ahsan Flynn PA Work Phone: [facility] Comment on above: Spinal stenosis, lum bar region, with neurogenic claudication (Primary Dx) Start: 11-07-2023 End: 11-07-2023 ambulatory [facility] Work Phone: Start: 11-07-2023 End: 11-07-2023 Patient encounter procedure [facility] Work Phone: Start: 10-29-2023 Non-patient / Non-visit [facility] [employer] Work Phone: Start: 10-07-2023 End: 06-25-2024 Telephone encounter Thomas Mathew MD Work Phone: Neurology Comment on above: Appointment Start: 10-04-2023 Telephone encounter Thomas crabtree MD Work Phone: Neurology Comment on above: Results Start: 08-15-2023 End: 08-15-2023 Office outpatient visit 15 minutes Ahsan NOVAK Work Phone: [facility] Comment on above: Spinal stenosis, lum bar region, with neurogenic claudication (Primary Dx) Start: 08-15-2023 End: 08-15-2023 ambulatory AHSAN FLYNN [facility] Start: 07-30-2023 Telephone encounter Thomas crabtree MD Work Phone: Neurology Comment on above: Appointment; Orders Start: 07-23-2023 Telephone encounter Thomas crabtree MD Work Phone: Neurology Start: 05-08-2023 End: 05-08-2023 ambulatory Thomas Mathew MD Work Phone: Neurosurgery Comment on above: Radiculopathy, lumba r region (Primary Dx) Start: 05-08-2023 End: 05-08-2023 Telemedicine consultation with patient Thomas Mathew MD Work Phone: [facility] Start: 05-08-2023 Telephone encounter Cherelle Oleary RN [facility] Start: 05-07-2023 Telephone encounter Cherelle Oleary RN [facility] Start: 04-16-2023 Telephone encounter Thomas crabtree MD Work Phone: Neurology Comment on above: Imaging Disc Start: 04-10-2023 Telephone encounter Thomas crabtree MD Work Phone: Neurology Comment on above: PT Certification Start: 04-09-2023 Telephone encounter Thomas crabtree MD Work Phone: Neurology Start: 02-14-2023 End: 02-14-2023 Office outpatient visit 15 minutes Ahsan NOVAK Work Phone: [facility] Comment on above: Spinal stenosis, lum bar region, with neurogenic claudication (Primary Dx) Start: 02-07-2023 End: 02-07-2023 Patient encounter procedure Riddhi Goss WELL TREATMENT OFFSIDER.FLYING TEACHER Work Phone: Neurosurgery Comment on above: 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) Start: 02-07-2023 Telephone encounter Thomas crabtree MD Work Phone: Neurosurgery Start: 02-04-2023 End: 02-04-2023 Patient encounter procedure Cecelia Parviz MURILLO [facility] Start: 01-23-2023 Telephone encounter Thomas crabtree MD Work Phone: Neurology Comment on above: Received Outside Med ical Records ([facility]) Start: 12-21-2022 Telephone encounter Thomas crabtree MD [...] Evaluation and management of inpatient THOMAS MATHEW Facility:[facility] Start: 12-06-2022 End: 12-06-2022 ambulatory Oumou Reji Other [employer] Other Start: 12-06-2022 Office outpatient vi sit 25 minutes Oumou Reji [facility] Start: 11-21-2022 End: 11-21-2022 ambulatory MAITE GALLOWAY Facility:[facility] Start: 11-21-2022 End: 11-21-2022 ambulatory BLAYNE ISABEL Facility:[facility] Start: 11-21-2022 End: 11-21-2022 ambulatory BLAYNE ISABEL Facility:[facility] Start: 11-21-2022 Encounter for other preprocedural examination BLAYNE ISABEL [facility] Start: 11-05-2022 End: 11-05-2022 Patient encounter procedure Thomas Mathew MD Work Phone: Neurosurgery Comment on above: 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 Facility: Start: 06-21-2022 End: 06-21-2022 ambulatory Oumou Reji Other [employer] Other Start: 06-21-2022 Office outpatient vi sit 25 minutes Oumou Reji [facility] Start: 06-11-2022 End: 06-12-2022 ambulatory OUMOU REJI Facility: Start: 04-03-2022 End: 04-03-2022 ambulatory Oumou Reji Other [employer] Other Start: 04-03-2022 Telephone encounter Oumou Reji [facility] Start: 03-20-2022 Encounter for preprocedural laboratory examination DR DOCTOR MILES [facility] Start: 03-19-2022 End: 03-19-2022 Patient encounter procedure Cecelia MURILLO [facility] Start: 03-15-2022 End: 03-16-[address] DOCTOR MILES Facility:[facility] Start: 03-15-2022 End: 03-16-2022 Encounter for preprocedural laboratory examination DR DOCTOR MILES Facility:[facility] Start: 03-12-2022 End: 03-13-[address] CECELIA MURILLO . Facility:[facility] Start: 03-08-2022 End: 03-09-[address] DOCTOR MILES Facility:[facility] Start: 01-27-2022 Encounter for genera l adult medical examination without abnormal findings DR BLAYNE ISABEL . [facility] Start: 01-24-2022 End: 01-25-[address] BLAYNE ISABEL . Facility:[facility] Start: 01-24-2022 End: 01-25-2022 Encounter for general adult medical examination without abnormal findings DR BLAYNE ISABEL . Facility:[facility] Start: 01-22-2022 End: 01-22-2022 ambulatory Oumou Reji Other [facility] [employer] Other Start: 01-22-2022 Telephone encounter Oumou Reji [facility] Start: 01-11-2022 End: 01-11-2022 ambulatory PHYSICIAN NO FAMILY Facility:[facility] Start: 01-11-2022 End: 01-11-2022 ambulatory PHYSICIAN NO [facility] Work Phone: Start: 01-11-2022 End: 01-11-2022 Discharged Recurring PHYSICIAN NO FAMILY [facility] - [facility]/P Start: 01-10-2022 End: 01-10-2022 ambulatory Oumou Reji Other [employer] Other Start: 01-10-2022 Telephone encounter Oumou Reji [facility] Start: 01-02-2022 End: 01-02-2022 ambulatory Oumou Reji Other [employer] Other Start: 01-02-2022 Telephone encounter Oumou Reji [facility] Start: 01-01-2022 End: 01-01-2022 ambulatory Oumou Reji Other [employer] Other Start: 01-01-2022 Telephone encounter Oumou Reji [facility] Start: 12-21-2021 End: 12-22-[address] BLAYNE ISABEL . Facility:[facility] Start: 12-15-2021 Office outpatient vi sit 15 minutes Estephanie Lowry [facility] Start: 12-15-2021 Telephone encounter Oumou Reji [facility] Start: 12-15-2021 End: 12-15-2021 ambulatory Estephanie Lowry [facility] [employer] Other Start: 12-15-2021 End: 12-15-2021 Departed [employer] Estephanie Lowry Work Phone: [facility] [place] Start: 11-24-2021 End: 11-25-2021 ambulatory OUMOU REJI Facility:[facility] Start: 11-15-2021 End: 11-15-2021 ambulatory OUMOU REJI Facility:[facility] Start: 11-14-2021 End: 11-15-2021 ambulatory OUMOU REJI Facility:[facility] Start: 11-01-2021 End: 11-02-[address] BLAYNE ISABEL . Facility:[facility] Start: 10-31-2021 End: 11-01-[address] BLAYNE ISABEL . Facility:[facility] Start: 10-25-2021 End: 10-25-2021 ambulatory Oumou Reji Other [facility] [employer] Other Start: 10-25-2021 Office outpatient ne w 45 minutes Oumou Weinstein [facility] Start: 10-18-2021 End: 10-19-[address] BLAYNE ISABEL . Facility:[facility] Start: 10-17-2021 Encounter for other specified special examinations DR DOCTOR MILES [facility] Start: 10-17-2021 Encounter for preprocedural laboratory examination DR DOCTOR MILES [facility] Start: 10-16-2021 End: 10-17-[address] BLAYNE ISABEL . Facility:[facility] Start: 10-16-2021 End: 10-17-2021 Encounter for other specified special examinations DR DOCTOR MILES Facility:[facility] Start: 10-13-2021 End: 10-21-2021 ambulatory PHYSICIAN BRADFORD Facility:[facility] Start: 10-10-2021 End: 10-11-2021 ambulatory [...] Evaluation and management of inpatient LEISA PERRY [facility] Start: 05-24-2021 End: 05-26-2021 ambulatory OCTAVIO MCCLELLAN [facility] Start: 05-24-2021 End: 05-26-2021 Subsequent hospital visit by physician Octavio Mcclellan DO Work Phone: [facility] 2C Ortho/Med Surg Comment on above: S/P laparoscopic sle may gastrectomy (Primary Dx) Start: 05-08-2021 End: 05-08-2021 Subsequent hospital visit by physician Jesus Mccracken 2 [facility] Pre-Admit Testing Comment on above: Canceled (Other) Start: 05-08-2021 End: 05-11-2021 ambulatory OCTAVIO Jj [facility] Start: 05-08-2021 End: 05-13-2021 ambulatory OCTAVIO Jj [facility] Start: 05-08-2021 End: 05-10-2021 Patient encounter status Stv Xr [facility] Rad[facility] Start: 05-08-2021 End: 05-10-2021 Subsequent hospital visit by physician Glory Mccracken Xr [facility] Comment on above: Pre-op chest exam Start: 05-08-2021 End: 05-12-2021 Subsequent hospital visit by physician Jesus Mccracken 2 JESUS Pre-Admit Testing Start: 05-05-2020 End: 05-05-2020 Patient encounter procedure Blayne Isabel -Pre-Surgical Testing Start: 02-04-2020 End: 02-04-2020 Subsequent hospital visit by physician Suzanne Pruett Work Phone: [facility] Echocardiography Comment on above: Arrived Start: 01-08-2020 End: 01-08-2020 Subsequent hospital visit by physician Alexandro Muhammad Work Phone: [facility] Radiology Start: 01-08-2020 End: 01-08-2020 Office outpatient new 30 minutes Alexandro Muhammad Work Phone: [facility] Orthopedics Comment on above: Fluid retention in l egs (Primary Dx) Start: 06-10-2019 End: 06-11-2019 Patient encounter procedure [facility] Facility:[facility] Start: 04-16-2019 End: 04-19-2019 Patient encounter procedure ARSENIO Leyva [facility] Start: 04-16-2019 End: 04-18-2019 Subsequent hospital visit by physician Xr Room 4 [facility] Comment on above: Injury Start: 04-11-2019 End: 04-11-2019 Emergency department patient visit SUZANNE DAVIES [facility] Start: 04-11-2019 End: 04-11-2019 Emergency department patient visit Suzanne Davies Work Phone: [facility] ED Comment on above: Acute bilateral low back pain with right-sided sciatica (Primary Dx); Traumatic buttock pain Procedures Date Procedure Procedure Detail Performing Clinician Start: 11-13-2024 Cystoscopy Yarely ortega Start: 11-21-2022 Antibody screen BLAYNE ISABEL Comment on above: Order Comment: Speci men Type: BLOOD SPECIMENOrdering Facility: [facility] Address: [address] [place] [address] Performed By: #### T [id number] ####CC MAIN BLOOD BANKCLIA [id number] [address] [place] Start: 02-25-2022 Arthroplasty of knee Scarlet MURILLO Start: 02-25-2022 Lumbar spinal fusion Scarlet MURILLO Start: 01-24-[address] SHERRI MURILLO . Comment on above: Performed By: #### P TT #### [facility] [address] [place] [address] Dr. Hugh Landis Start: 07-13-2021 Cystoscopic removal [...] string Cecelia MURILLO Ankle joint operations Daly lees LIDIA Bilateral replacemen t of knee joints Cecelia MURILLO Chondrectomy of semi lunar cartilage of knee Maite SQUIRES Cystoscopy Cecelia MURILLO Lumbar spinal fusion Cecelia MURILLO Urine culture PHYSICIAN TOM BUSBY Plan of Treatment Date Care Activity Detail Author Start: 01-24-2027 Prostate Cancer Screening Discussion Prostate Cancer Screening Discussion [facility] Start: 01-24-2027 Prostate specific antigen measurement Prostate Cancer Screening Discussion [facility] Start: 08-13-2025 ambulatory Ambulatory Facility:[facility] Start: 02-12-2025 Adult BMI Screening Adult BMI Screening [facility] Start: 02-12-2025 Tobacco Screening Tobacco Screening [facility] Start: 12-04-2024 Adult BMI Screening Adult BMI Screening [facility] Start: 12-04-2024 Tobacco Screening Tobacco Screening [facility] Start: 10-26-2024 Influenza vaccination Influenza Vaccine (Season Ended) [facility] Start: 08-14-2024 Tobacco Screening Tobacco Screening [facility] Start: 02-15-2024 Adult BMI Screening Adult BMI Screening [facility] Start: 02-15-2024 Tobacco Screening Tobacco Screening [facility] Start: 02-13-2024 End: 02-13-2024 Patient encounter procedure 02/13/2024 10:45 AM EST Office Visit [facility] [address] [place] [phone] Ahsan Flynn, PA [address] [place], [place] [id number] [facility] Start: 12-12-2023 Creatinine measurement Serum Creatinine [facility] Start: 12-12-2023 Serum Creatinine Serum Creatinine [facility] Start: 10-27-2023 Covid-19 Vaccine ( season) Covid-19 Vaccine ( season) [facility] Start: 10-27-2023 Influenza vaccination [facility] Start: 10-07-2023 End: 10-07-2023 Follow-up encounter Neurosurgery Comment on above: FOLLOW UP Start: 2023 RSV Vaccine (1 - 1-dose 60+ series) RSV Vaccine (1 - 1-dose 60+ series) [facility] Start: 2023 RSV Vaccine (1 - Risk 60-74 years 1-dose series) RSV Vaccine (1 - Risk 60-74 years 1-dose series) [facility] Start: 08-15-2023 End: 08-15-2023 Patient encounter procedure 08/15/2023 11:15 AM EDT Office Visit [facility] [address] [place] [phone] Ahsan Flynn PA [address] [place], [place] [id number] [facility] Start: 05-22-2023 Hemoglobin A1c measurement HbA1C [facility] Start: 05-22-2023 Hemoglobin A1c/Hemoglobin.total in Blood HbA1C [facility] Start: 02-25-2023 Behavioral Health Screening Behavioral Health Screening [facility] Start: 02-25-2023 Depression Assessment Depression Assessment [facility] Start: 01-20-2023 End: 01-19-2024 Radex spine lumbosacral 2/3 views XR LUMBAR LIMITED 2V AP/LAT Radiology Routine Lumbar adjacent segment disease with spondylolisthesis Expected: 01/20/2023, Expires: 01/19/2024 [facility] Work Phone: Comment on above: Expected: 01/20/2023, Expires: Start: 10-26-2022 Covid-19 Vaccine ( season) Covid-19 Vaccine () [facility] Start: 10-26-2022 Influenza vaccination [facility] Start: 05-25-2022 Creatinine measurement Creatinine monitoring [facility] Start: 05-25-2022 Potassium monitoring Potassium monitoring [facility] Start: 05-08-2022 Creatinine measurement Creatinine monitoring [facility] Start: 05-08-2022 Potassium monitoring Potassium monitoring [facility] Start: 02-25-2022 DEPRESSION ASSESSMENT DEPRESSION ASSESSMENT [facility] Start: 01-03-2022 Hemoglobin A1c measurement A1C test (Diabetic or Prediabetic) [facility] Start: 01-03-2022 Lipid panel Lipid screen [facility] Start: 10-26-2021 Influenza vaccination Flu vaccine (Season Ended) [facility] Start: 06-06-2021 End: 06-06-2021 Patient encounter procedure 06/06/2021 Office Visit Oncology Spencer Guy MD [address] [place] [address] [facility] Start: 06-02-2021 End: 06-02-2021 Patient encounter procedure 06/02/2021 Office Visit Bariatrics Octavio Mcclellan DO [address] [phone] Heydi Hernandez Invasive Bariatric Surg Start: 05-24-2021 End: 05-24-2021 Admission to same day surgery center [facility] Comment on above: XI ROBOTIC LAPOROSCOPIC GASTRECTOMY SLEE VE, LIVER BIOPSY, EGD- GI SCHEDULED XI ROBOTIC LAPOROSCO PIC GASTRECTOMY SLEEVE, LIVER BIOPSY, EGD- GI SCHEDULED, POSSIBLE OPEN Start: 05-24-2021 End: 05-24-2021 Laps gstrc rstrictiv px longitudinal gastrectomy [facility] Start: 05-24-2021 Subsequent hospital visit by physician 05/24/2021 Hospital Encounter IP Unit Octavio Mcclellan DO [address] [phone] [facility] Start: 05-19-2021 End: 05-19-2021 Patient encounter procedure 05/19/2021 Appointment Pre-Admission Testing [facility] PRE ADMIT Start: 05-18-2021 End: 05-18-2021 Patient encounter procedure 05/18/2021 Office Visit Bariatrics Octavio Mcclellan DO [address] [phone] [facility] Start: 10-26-2020 Influenza vaccination Flu vaccine (#1) [facility] Start: 04-04-2020 End: 04-04-2020 Office Visit 04/04/2020 Office Visit Cardiovascular Medicine Suzanne Pruett MD [address] [place] [address] [phone] [facility] Card[facility] Start: 02-02-2020 End: 02-02-2020 Office Visit 02/02/2020 Office Visit Cardiovascular Medicine Suzanne Pruett MD [address] [place] [address] [phone] [facility] Card[facility] Start: 10-27-2019 Influenza vaccination INFLUENZA VACCINE (#1) [facility] Start: 10-26-2018 Influenza vaccination Flu vaccine (#1) [place] Phone: Start: 09-10-2018 PROSTATE CANCER SCREENING DISCUSSION PROSTATE CANCER SCREENING DISCUSSION [facility] Start: 09-10-2013 Administration of varicella zoster vaccine Zoster (Shingles) Vaccine (1 of 2) [facility] Start: 09-10-2013 Colon cancer screen colonoscopy Colon cancer screen colonoscopy [facility] [employer] Phone: Start: 09-10-2013 Colonoscopy COLORECTAL CANCER SCREENING DISCUSSION [facility] Start: 09-10-2013 Prostate specific antigen measurement PROSTATE CANCER SCREENING DISCUSSION [facility] Start: 09-10-2013 Shingles Vaccine (1 of 2) Shingles Vaccine (1 of 2) [facility] Start: 09-10-2013 SHINGRIX VACCINE (1 of 2) SHINGRIX VACCINE (1 of 2) [facility] Start: 09-10-2013 Zoster vaccine hzv live for subcutaneous use ZOSTER (SHINGLES) VACCINE (1 of 2) [facility] Start: 09-10-2008 COLOGUARD (FIT-DNA) COLOGUARD (FIT-DNA) [facility] Start: 09-10-2008 Colonoscopy COLONOSCOPY [facility] Start: 09-10-2008 COLORECTAL CANCER SCREENING COLORECTAL CANCER SCREENING [facility] Start: 09-10-[address] COLONOGRAPHY [facility] Start: 09-10-2008 DIABETES SCREEN DIABETES SCREEN [facility] Start: 09-10-2008 Diabetes Screening Diabetes Screening [facility] Start: 09-10-2008 FECAL OCCULT BLOOD FECAL OCCULT BLOOD [facility] Start: 09-10-2008 Screening for malignant neoplasm of colon [facility] Start: 09-10-2008 SIGMOIDOSCOPY SIGMOIDOSCOPY [facility] Start: 2003 Diabetes screen Diabetes screen [facility] Phone: Start: 2003 Fasting lipid profile LIPID SCREENING [facility] Start: 2003 Lipid screen Lipid screen [facility] [employer] Phone: Start: 09-10-1998 Lipid 1996 panel - Serum or Plasma Lipid Screening [facility] Start: 09-10-1998 LIPID SCREEN LIPID SCREEN [facility] Start: 09-10-1982 DTaP,Tdap and Td Vaccines (1 - Tdap) DTaP,Tdap and Td Vaccines (1 - Tdap) [facility] Start: 09-10-1982 DTaP/Tdap/Td vaccine (1 - Tdap) DTaP/Tdap/Td vaccine (1 - Tdap) [facility] Start: 09-10-1982 Hepatitis B vaccine (1 of 3 - Risk 3-dose series) Hepatitis B vaccine (1 of 3 - Risk 3-dose series) [facility] Start: 09-10-1982 Pneumococcal Vaccine: 50+ (1 of 2 - PCV) Pneumococcal Vaccine: 50+ (1 of 2 - PCV) [facility] Start: 09-10-1982 Third diphtheria, tetanus and acellular pertussis (DTaP) vaccination TDAP (ADULT) [facility] Start: 09-10-1982 Urine microalbumin profile [facility] Start: 09-10-1981 Adult BMI Follow Up Plan Adult BMI Follow Up Plan [facility] Start: 09-10-1981 Annual PCP Team Chronic Disease Visit Annual PCP Team Chronic Disease Visit [facility] Start: 09-10-1981 BP Controlled (<130/80) BP Controlled (<130/80) [facility] Start: 09-10-1981 Depression Screening Depression Screening [facility] Start: 09-10-1981 Diabetic retinal exam Diabetic retinal exam [facility] Start: 09-10-1981 Hepatitis B surface antibody level LDL Cholesterol [facility] Start: 09-10-1981 HEPATITIS C SCREENING HEPATITIS C SCREENING [facility] Start: 09-10-1981 Hepatitis C screening Hepatitis C Screening [facility] Start: 09-10-1981 HIV SCREENING HIV SCREENING [facility] Start: 09-10-1981 HIV screening HIV Screening [facility] Start: 09-10-1981 Tetanus vaccination TETANUS [facility] Start: 09-10-1981 Urine screening for protein Diabetic microalbuminuria test [facility] Start: 09-10-1978 HIV screen HIV screen [facility] Work Phone: Start: 09-10-1978 HIV screening HIV screen [facility] Start: 09-10-1976 HIV screening HIV SCREENING DISCUSSION [facility] Start: 1975 Depression Screen Depression Screen [facility] Start: 1975 Depression Screening Depression Screening [facility] Start: 09-10-1974 DTaP/Tdap/Td vaccine (1 - Tdap) DTaP/Tdap/Td vaccine (1 - Tdap) [facility] Phone: Start: 09-10-1973 3 comp foot exam completed Diabetic Foot Exam [facility] Start: 09-10-1973 Diabetic foot examination Diabetic foot exam [facility] Start: 09-10-1973 Glaucoma screening Dilated Retinal Exam [facility] Start: 09-10-1973 Hepatitis B screening Urine Albumin:Creatinine Ratio [facility] Start: 09-10-1973 Hepatitis C antibody, confirmatory test Dilated Retinal Exam [facility] Start: 09-10-1969 Pneumococcal 0-64 years Vaccine (1 of 2 - PPSV23) Pneumococcal 0-64 years Vaccine (1 of 2 - PPSV23) [facility] Start: 09-10-1969 Pneumococcal vaccination [facility] Start: 09-10-1968 COVID-19 Vaccine (1) COVID-19 Vaccine (1) [facility] Start: 03-13-1964 COVID-19 VACCINE (#1) COVID-19 VACCINE (#1) [facility] Start: 1963 Hepatitis C antibody, confirmatory test HEPATITIS C VIRUS SCREENING [facility] Start: 1963 Hepatitis C screen Hepatitis C screen [facility] [employer] Phone: Start: 1963 Hepatitis C screening Hepatitis C screen [facility] Start: 1963 Potassium [Moles/Vol] POTASSIUM [facility] m Bacteria identified in Urine by Culture [facility] Chlamydia trachomati s DNA [Presence] in Unspecified specimen by MUKUL with probe detection [facility] [employer] Work Phone: Continuous pulse oximetry Pulse oximetry, continuous Respiratory Care Routine Every 4hr until discontinued starting 05/24/2021 [facility] Phone: Comment on above: Every 4hr until discontinued starting CT LUMBAR SPINE WO CONTRAST CT LUMBAR SPINE WO CONTRAST Imaging STAT 04/11/2019 1:43 PM EST [facility] [employer] Phone: Neisseria gonorrhoea e DNA [Presence] in Unspecified specimen by MUKUL with probe detection [facility] [employer] Work Phone: Oxygen therapy [[facility] Data Set] Initiate Oxygen Therapy Protocol Respiratory Care Routine As Needed until discontinued starting 05/24/2021 [email or web address] Work Phone: Comment on above: As Needed until discontinued starting Radiography for bone length studies XR BONE LENGTH STUDY Imaging Routine Hx of total knee arthroplasty, right 01/08/2020 1:37 PM [facility] [employer] [facility] Renal function 2000 panel - Serum or Plasma [facility] Spirometry panel [employer] silverio metry Respiratory Care Routine Every 2hr while awake until discontinued starting 05/24/2021 [email or web address] Work Phone: Comment on above: Every 2hr while awake until discontinued starting 05/24/2021 Surgical Pathology Surgical Path ology Lab Routine Release Upon Ordering for 1 Occurrences starting 05/24/2021 [facility] [employer] Work Phone: Comment on above: Release Upon Ordering for 1 Occurrences starting 05/24/2021 Trichomonas vaginali s DNA [Presence] in Unspecified specimen by MUKUL with probe detection [facility] Work Phone: X-ray of right knee XR KNEE RIGH T 3 VIEWS Imaging Routine Hx of total knee arthroplasty, right 01/08/2020 1:37 PM [facility] [employer] [facility] End: 06-06-2024 XR Lumbar spine AP and Lateral XR LUMBAR LIMITED 2V AP/LAT Radiology Routine Radiculopathy, lumbar region 1 Occurrences starting 05/08/2023 until 06/06/2024 [facility] Work Phone: Comment on above: 1 Occurrences starting 05/08/2023 until 06/06/2024 [facility] Immunizations Immunization Date Immunization Notes Care Provider Fa cility 05-08-2023 influenza virus vacc ine, unspecified formulation Thomas Mathew MD Work Phone: [facility] Payers Date Payer Category Payer Self-pay [id number] 2019 Private Health Insurance xxx [id number] 2019 Worker's Compensation 2019 Government (not [facility] or Medicaid) [facility] [id number] 2019 Unknown [employer] [facility] FUNDED xxxxxxxx 2019-Present [phone] [place] [address] xxxxxxxx [id number] 2019 Unknown [id number] 2019 Unknown [id number] 2019 Unknown [employer]ALTH [employer] [facility] [employer]ED xxxxx 2019-Present [phone] [place] [address] xxxxx 1.2.840.870091.1.13.239. 2.7.3.712646.315 2019 Unknown 1.2.840.588095. 1.13.159. 2.7.3.705027.315 2019 Worker's Comp Other Managed Care [facility] 1.2.840.610911.1.13.424. 2.7.9.901789.306.315 2019 Unknown [id number] 2014 Private Health Insurance [id number] 2014 Private Health Insurance BRENTON PARIKH xxxxxxxxxx 2014-Present [phone] [facility] [address] [place] [address] xxxxxxxxxx 1.2.840.428716.1.13.239. 2.7.3.895292.315 2013 Private Health Insurance 1965 Unknown [id number] 2.16.840.1.576648.3.579. 2.176 1965 Unknown [id number] 2.16.840.1.664080.3.579. 2.176 1963 Unknown [id number] 2.16.840.1.373464.3.579. 2.176 1963 Unknown [id number] 2.16.840.1.023096.3.579. 2.196 1963 Unknown [id number] 2.16.840.1.155383.3.579. 2.175 1963 Unknown [id number] 2.16.840.1.944731.3.579. 2.647 1963 Unknown [id number] 2.16.840.1.427054.3.579. 2.593 1963 Unknown [id number] 2.16.840.1.250916.3.579. 2.593 1963 Unknown [id number] 2.16.840.1.987545.3.579. 2.593 1963 Unknown [id number] 2.16.840.1.006167.3.579. 2.593 1963 Unknown [id number] 2.16.840.1.038169.3.579. 2.593 1963 Unknown [id number] 2.16.840.1.917517.3.579. 259 1963 Unknown [id number] .16.840.1.494470.3.579. 259 1963 Unknown [id number] .16.840.1.633699.3.579. 2 1963 Unknown [id number] .840.1.485768.3.579. 2 1963 Unknown [id number] .840.1.258693.3.579. 2 1963 Unknown [id number] .840.1.669791.3.579. 2 1963 Unknown [id number] .840.1.742516.3.579. 2 1963 Unknown [id number] .840.1.924152.3.579. 2 1963 Unknown [id number] .840.1.117235.3.579. 2 1963 Unknown [id number] .840.1.628992.3.579. 2 1963 Unknown [id number] .840.1.549582.3.579. 2 1963 Unknown [id number] .840.1.152008.3.579. 2 1963 Unknown [id number] .840.1.175284.3.579. 2 1963 Unknown [id number] .840.1.191856.3.579. 2 1963 Unknown [id number] .840.1.167201.3.579. 259 1963 Unknown [id number] .840.1.575486.3.579. 2 1963 Unknown [id number] 2.16.840.1.792846.3.579. 2.593 1963 Unknown [id number] 2.16.840.1.534546.3.579. 2593 1963 Unknown [id number] 2.16.840.1.802281.3.579. 2.1285 1963 Unknown [id number] 2.16.840.1.374370.3.579. 2.1285 1963 Unknown [id number] 2.16.840.1.780921.3.579. 2.1285 1963 Unknown [id number] 2.16.840.1.762695.3.579. 272 1963 Unknown [id number] 2.16.840.1.116258.3.579. 2.72 1963 Unknown [id number] 2.16.840.1.531205.3.579. 2.72 1963 Unknown [id number] 2.16.840.1.185175.3.579. 272 1963 Unknown [id number] 2.16.840.1.560393.3.579. 272 1963 Unknown [id number] 2.16.840.1.646667.3.579. 2.727 1959 Unknown [id number] 1.2.840.226758.1.13.239. 2.7.3.601858.315 1959 Unknown [id number] Self-pay Self Pay [facility] [id number] Unknown [id number] 2.16.840.1.278403.3.579. 2.531 Unknown [id number] 2.16.840.1.328810.3.579. 2.531 Unknown [id number] 2.16840.1.762422.19 Social History Date Type Detail Facility Start: 04-11-2019 End: 08-07-2024 Tobacco smoking status NHIS Never smoker [email or web address] Start: 04-11-2019 End: 05-25-2021 Alcohol intake Lifetime non-drinker (finding) [employer] Work Phone: Start: 04-11-2019 End: 01-08-2020 History SDOH Alcohol Frequency 1 [employer] Work Phone: Start: 1965 Sex Assigned At Not on file [employer] Work Phone: Start: 11-26-2013 End: 01-08-2020 Tobacco use and exposure Never used [employer] Start: 1965 Sex Assigned At Male F [facility] Start: 04-08-2021 End: 05-24-2021 Exposure to SARS-CoV-2 (event) Not sure [email or web address] Work Phone: Start: 11-05-2022 End: 03-25-2023 Sex Assigned At [facility] Start: 01-26-2014 End: 03-25-2023 Alcohol intake Current non-drinker of alcohol (finding) [facility] Tobacco smoking status Never [facility] Start: 11-05-2022 End: 03-25-2023 History of Social function [facility] Start: 12-05-2023 End: 02-13-2024 Alcoholic beverage intake [facility] (finding[facility] Start: 06-08-2009 End: 09-30-2014 Sex Male (finding) [facility] Sexual Orientation [facility] Medical Equipment Procedure Code Equipment Code Equipment Origin al Text Equipment Identifier Dates CYSTOSCOPY W/ HO SHAINA ARAIZA MD, Octavio Myers 03/28/20 Unknown Abdomen {[id number] Start: 03-28-2020 Screw Darby 3 Alicia nium Set Merlyn Spine - [id number] Start: 12-07-2022 Screw Darby 3 Serr eladio 6.5mm 50mm Bone Polyaxial Nonsterile Spine - [id number] Start: 12-07-2022 Vitoss Ba2x Bioactive Bone Graft Substitute 5.0cub Cm [id number] Start: 12-07-2022 Cage Tritanium 6 d [id number] Spinal Sterile Latex Free Lumbar Posterior - [id number] Start: 12-07-2022 Cage Tritanium 6 d [id number] Spinal Sterile Latex Free Lumbar Posterior - [id number] Start: 12-07-2022 Screw Darby 3 Serr eladio 6.5mm 45mm Bone Polyaxial Nonsterile Spine - [id number] Start: 12-07-2022 Goals Date Patient Goal Desired Activity /State Functional Status Date Assessment Result Facility 02-04-2023 Functional Status N/A [facility] 12-11-2022 Are you deaf, or do you have serious difficulty hearing No 12/11/2022 12:52 PM EDLivia Chase RN [facility] 12-11-2022 Are you blind, or do you have serious difficulty seeing, even when wearing glasses No 12/11/2022 12:52 PM Livia Atkinson RN [facility] 12-11-2022 Do you have serious difficulty walking or climbing stairs No 12/11/2022 12:52 PM Livia Atkinson RN No [facility] 12-11-2022 Do you have difficul ty dressing or bathing No 12/11/2022 12:52 PM Livia Atkinson RN No [facility] 12-11-2022 Because of a physica l, mental, or emotional condition, do you have difficulty doing errands alone such as visiting a physician's office or shopping No 12/11/2022 12:52 PM Livia Atkinson RN No [facility] 10-17-2022 Functional Status N/A [facility] 03-19-2022 Functional Status N/A [facility] Mental Status Date Assessment Result Facility 12-11-2022 Because of a physica l, mental, or emotional condition, do you have serious difficulty concentrating, remembering, or making decisions No 12/11/2022 12:52 PM EDT Livia Calix RN No [facility] Clinical Notes 05-03-2021 to 11-19-2024 Telephone Encounter - Cherelle Oleary RN - 04/10/2024 2:13 PM ESTTelephone Encounter - Cherelle Oleary RN - 04/10/2024 2:13 PM SCARLET Enriquez - 02/13/2024 10:45 AM EST Note Date & Type Note Facility 11-19-2024 Hospital Discharge instructions Patient Education 11/19/2024 11:41:03 Kidney Stones, Nybj-tk-Mmqh Kidney Stones Kidney stones are rock-like masses [...] Follow these instructions at home: Medicines Take zmcl-whj-prhzqek and prescription medicines only as told by [...] provider. Document Revised: 10/05/2022 Document Reviewed: 10/05/2022 [employer] Patient Education 2023 [employer]. Follow Up Care 11/16/2024 09:50:41 With:LIDIA JACOBS, Cecelia Jj, URL Address: [address] [place] [address]- When: Unknown Comments:as scheduled [facility] Note Patient Education Urology Kidney Stones [...] these instructions at home: Medicines ??? Take lxxo-gns-uqqefug and prescription medicines only as told by [...] provider. Document Revised: 10/05/2022 Document Reviewed: 10/05/2022 [employer] Patient Education ? 2023 [employer]. [facility] 08-07-2024 Hospital Discharge instructions Patient Education [...] include: ?8 oz (237 mL) of milk, egftalp-tonegiujezoa-jbwvd milk, and calcium-fortifiedfruit juice. Calcium-fortified means that [...] ?Spinach (cooked), rhubarb, beets, sweet potatoes, and [place] chard. ?Peanuts. ?Potato chips, swiss fries, and baked potatoes with skin on. ?Nuts and nut products. ?Chocolate. If you regularly take a diuretic medicine, make sure to eat at least 1 or 2 servings of fruits or vegetables that are high in potassium each day. These include: ?Avocado. ?Banana. ?[place], prune, carrot, or tomato juice. ?Baked potato. [...] magnesium, fish oil, or vitamin B6. Take fcix-rtj-lighvub and prescription medicines only as told by [...] Casseroles. Pizza. Lasagna. Frozen meals. Potato chips. Nigerien fries. The items listed above may not [...] provider. Document Revised: 05/24/2022 Document Reviewed: 05/24/2022 [employer] Patient Education 2023 [employer]. Follow Up [facility] 07/03/2024 14:31:41 With:LIDIA JACOBS, Cecelia Jj, URL Address: [address] [place], [place] [id number]- When: Unknown [facility] 08-07-2024 Note Patient Education Nephrology Dietary [...] ? 8 oz (237 mL) of milk, qqowcow-cycuvygynnqk-cbsno milk, and calcium-fortifiedfruit juice. Calcium-fortified means that [...] Spinach (cooked), rhubarb, beets, sweet potatoes, and [place] chard. ? Peanuts. ? Potato chips, swiss fries, and baked potatoes with skin on. ? Nuts and nut products. ? Chocolate. ??? If you regularly take a diuretic medicine, make sure to eat at least 1 or 2 servings of fruits or vegetables that are high in potassium each day. These include: ? Avocado. ? Banana. ? [place], prune, carrot, or tomato juice. ? Baked [...] fish oil, or vitamin B6. ??? Take qyiv-gzp-nepejct and prescription medicines only as told by your health (more content not included)... [facility] 06-17-2024 Note Orthopedic Surgery Subjective Chief [...] CT of the right knee completed at [facility] which we do not have access [...] hyperplasia) CKD (chronic kidney disease) 3 Diabetes ([facility]/HCC) GERD (gastroesophageal reflux disease) Hyperlipidemia Hyperparathyroidism Hypertension Kidney stones Lumbar pain OA (osteoarthritis) Obesity Obstetric pulmonary blood clot embolism, antepartum Sleep apnea Objective General: There is no height or weight on file to calculate BMI. No acute distress, comfortable Respiratory: Unlabored breathing with normal rate, no cough Cardiovascular: Warm well perfused extremiti (more content not included)... [facility] 05-18-2024 Note Orthopedic Surgery Subjective Chief [...] CT of the right knee completed at [facility] which we do not have access [...] hyperplasia) CKD (chronic kidney disease) 3 Diabetes (CMS/[facility]) GERD (gastroesophageal reflux disease) Hyperlipidemia Hyperparathyroidism Hypertension [...] the right k (more content not included)... [facility] 04-10-2024 Miscellaneous Notes Patient brought in [...] office visit notes can be submitted via [employer] [facility]. documented [facility] this encounter [facility]10[facility]2024 Telephone encounter Note Patient brought in [...] office visit notes can be submitted via [facility]. [facility] 03-[facility]-2024 Miscellaneous Notes Patient called today to follow up on his request for a written statement stating that provider feels that patient is totally disabled. 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 documented in this encounter [facility] 03-03-2024 Telephone encounter Note Patient called today to follow up on his request for a written statement stating that provider feels that patient is totally disabled. 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 [facility] 02-13-2024 History of Present illness Narrative [facility] [address] [place] [address] Patient: Sukhdeep Simental Sex: male : 1965 Age: 58 y.o. PCP: BLAYNE ISABEL MD 02/13/2024 Sukhdeep Simental is here for a(n) follow up for his [employer] work injury. 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 Chief Complaint Patient presents with Back Pain [facility] HPI: 12/07/2022 L2/3 fusion and revised L3/4, S1 at [facility] per patient. Bilateral SI joint injection on 04/17/2021 with 10% relief, pain is worse. 07/07/21 Bilateral L3/4 Medial branch block with no relief. right L 3, 4 nerve root injection on 09/01/2021 with no relef. Back Pain This is a chronic problem. The current episode started more than 1 year ago (surgery 8/22/19 discectomy and 07/10/2019 fusion in [place]). The problem occurs constantly. The problem is [...] disorder Claustrophobia Diabetes mellitus type 2, controlled ([facility]) Fractures Hyperlipidemia Hypertension Joint pain Low back pain Major depression Obesity Osteoarthritis Pulmonary embolism ([facility]) Seasonal allergies Sleep apnea does not use machine Sleep apnea Visual impairment glasses Past Surgical History: Procedure Laterality Date ANKLE SURGERY spurs removed INJECTION BLOCK EPIDURAL CAUDAL STEROID N/A 10/27/2021 Performed by Darren Lackey MD at [facility] INJECTION BLOCK NERVE MEDIAL BRANCH: bilat L 3/4 Bilateral 07/07/2021 Performed by Darren Lackey MD at [facility] INJECTION BLOCK SACROILIAC JOINT Bilateral 04/17/2021 Performed by Darren Lackey MD at [facility] INJECTION SPINE TRANSFORAMINAL: right L 3,4 Nroot Right 09/01/2021 Performed by Darren Lackey MD at [facility] JOINT REPLACEMENT knees- right x2, left x1 KNEE SURGERY rt knee inf removed tka added rods LITHOTRIPSY LUMBAR DISCECTOMY L4-5 Left 10/16/2018 Performed by Suzanne Silverio DO at [facility] STOMACH SURGERY 04/2021 sleeve Allergies Allergen [...] Strain: Low Risk (03/28/2022) Received from [facility], [facility] Overall Financial Resource Strain (CARDIA) Difficulty of Paying Living Expenses: Not hard at all Food Insecurity: No Food Insecurity (12/05/2023) Hunger Screening Food Insecurity - Worry: Never True Food Insecurity - Inability: Never True Transportation Needs: Unknown (03/28/2022) Received from [facility], [facility] PRAPARE - Transportation Lack of Transportation (Medical): No Lack of Transportation (Non-Medical): Not on file Physical Activity: Inactive (12/01/2021) Received from [facility], [facility] Exercise Vital Sign Days of Exercise per Week: 0 days Minutes of Exercise per Session: 20 min Stress: No Stress Concern Present (12/01/2021) Received from [facility], [facility] [employer] [facility] [employer]ational [employer] - Occupational Stress Questionnaire Feeling of Stress : Not at all Social Connections: Moderately Isolated (12/01/2021) Received from [facility], [facility] Social Connection and Isolation Panel [NHANES] Frequency of Communication with Friends and Family: More than three times a week Frequency of Social Gatherings with Friends and Family: Once a week Attends Church Services: Never Active Member of Clubs or Organizations: No Attends Club or Organization Meetings: Never Marital Status: Interpersonal Safety: Unknown (04/18/2023) Received from [facility] [place] Safety & Environment Fear of Current or Ex-Partner: Not on file Emotionally Abused: Not on file Physically Abused: Not on file Sexually Abused: Not on file Physically or Sexually Abused: Not on file Housing Instability: Unknown (03/28/2022) Received from [facility], [facility] Housing Stability Vital Sign Unable to [...] Agustin 02/13/24 1603 documented in this encounter [facility] 12-05-2023 History of Present illness Narrative [facility] [address] [place] [address] Patient: Sukhdeep Simental Sex: male : 1965 Age: 58 y.o. PCP: BLAYNE ISABEL MD 12/05/2023 Sukhdeep Simental is here for a(n) follow up for his [employer] work injury. He reports he remains about the same as last visit. Chief Complaint Patient presents with Back Pain HPI: 12/07/2022 L2/3 fusion and revised L3/4, S1 at [facility] per patient. Bilateral SI joint injection on 04/17/2021 with 10% relief, pain is worse. 07/07/21 Bilateral L3/4 Medial branch block with no relief. right L 3, 4 nerve root injection on 09/01/2021 with no relef. Back Pain This is a chronic problem. The current episode started more than 1 year ago (surgery 10/16/18 discectomy and 07/10/2019 fusion in [place]). The problem occurs constantly. The problem is [...] disorder Claustrophobia Diabetes mellitus type 2, controlled ([facility]) Fractures Hyperlipidemia Hypertension Joint pain Low back pain Major depression Obesity Osteoarthritis Pulmonary embolism ([facility]) Seasonal allergies Sleep apnea does not use machine Sleep apnea Visual impairment glasses Past Surgical History: Procedure Laterality Date ANKLE SURGERY spurs removed INJECTION BLOCK EPIDURAL CAUDAL STEROID N/A 10/27/2021 Performed by Darren Lackey MD at [facility] INJECTION BLOCK NERVE MEDIAL BRANCH: bilat L 3/4 Bilateral 07/07/2021 Performed by Darren Lackey MD at [facility] INJECTION BLOCK SACROILIAC JOINT Bilateral 04/17/2021 Performed by Darren Lackey MD at [facility] INJECTION SPINE TRANSFORAMINAL: right L 3,4 Nroot Right 09/01/2021 Performed by Darren Lakcey MD at [facility] JOINT REPLACEMENT knees- right x2, left x1 KNEE SURGERY rt knee inf removed tka added rods LITHOTRIPSY LUMBAR DISCECTOMY L4-5 Left 10/16/2018 Performed by Suzanne Silverio DO at [facility] STOMACH SURGERY 04/2021 sleeve Allergies Allergen [...] Strain: Low Risk (03/28/2022) Received from [facility], [facility] Overall Financial Resource Strain (CARDIA) Difficulty of Paying Living Expenses: Not hard at all Food Insecurity: No Food Insecurity (12/05/2023) Hunger Screening Food Insecurity - Worry: Never True Food Insecurity - Inability: Never True Transportation Needs: Unknown (03/28/2022) Received from [facility], [facility] PRAPARE - Transportation Lack of Transportation (Medical): No Lack of Transportation (Non-Medical): Not on file Physical Activity: Inactive (12/01/2021) Received from [facility], [facility] Exercise Vital Sign Days of Exercise per Week: 0 days Minutes of Exercise per Session: 20 min Stress: No Stress Concern Present (12/01/2021) Received from [facility], [facility] [employer] [employer] - Occupational Stress Questionnaire Feeling of Stress : Not at all Social Connections: Moderately Isolated (12/01/2021) Received from [facility], [facility] Social Connection and Isolation Panel [NHANES] Frequency of Communication with Friends and Family: More than three times a week Frequency of Social Gatherings with Friends and Family: Once a week Attends Church Services: Never Active Member of Clubs or Organizations: No Attends Club or Organization Meetings: Never Marital Status: Interpersonal Safety: Unknown (04/18/2023) Received from [facility] [place] Fear of Current or Ex-Partner: Not on file Emotionally Abused: Not on file Physically Abused: Not on file Sexually Abused: Not on file Physically or Sexually Abused: Not on file Housing Instability: Unknown (03/28/2022) Received from [facility], [facility] Housing Stability Vital Sign Unable to [...] Agustin 12/12/23 0942 documented in this encounter [facility] 10-07-2023 Telephone encounter Note Pt phoned to ensure todays appt was via phone as noted in appt. Pt unable to manage computer. [facility] 10-07-2023 Miscellaneous Notes Pt phoned to ensure todays appt was via phone as noted in appt. Pt unable to manage computer. documented in this encounter [facility] 10-04-2023 Telephone encounter Note Laura report XR Lumbar Spine 2-3v scanned to [facility] 10-04-2023 Miscellaneous Notes Laura report XR Lumbar Spine 2-3v scanned to [employer] documented in this encounter [facility] 08-15-2023 History of Present illness Narrative [facility] [address] [place] [address] Patient: Sukhdeep Simental Sex: male : 1965 Age: 57 y.o. PCP: BLAYNE ISABEL MD 08/15/2023 Sukhdeep Simental is here for a(n) follow up for his [facility] work injury. He reports he has pain higher than before surgery. Chief Complaint Patient presents with Back Pain HPI: 12/07/2022 L2/3 fusion and revised L3/4, S1 at [facility] per patient. Bilateral SI joint injection on 04/17/2021 with 10% relief, pain is worse. 07/07/21 Bilateral L3/4 Medial branch block with no relief. right L 3, 4 nerve root injection on 09/01/2021 with no relef. Back Pain This is a chronic problem. The current episode started more than 1 year ago (surgery 10/16/18 discectomy and 07/10/2019 fusion in [place]). The problem occurs constantly. The problem has [...] disorder Claustrophobia Diabetes mellitus type 2, controlled ([facility]) Fractures Hyperlipidemia Hypertension Joint pain Low back pain Major depression Obesity Osteoarthritis Pulmonary embolism ([facility]) Seasonal allergies Sleep apnea does not use machine Sleep apnea Visual impairment glasses Past Surgical History: Procedure Laterality Date ANKLE SURGERY spurs removed INJECTION BLOCK EPIDURAL CAUDAL STEROID N/A 10/27/2021 Performed by Darren Lackey MD at [facility] INJECTION BLOCK NERVE MEDIAL BRANCH: bilat L 3/4 Bilateral 07/07/2021 Performed by Darren Lackey MD at [facility] INJECTION BLOCK SACROILIAC JOINT Bilateral 04/17/2021 Performed by Darren Lackey MD at [facility] INJECTION SPINE TRANSFORAMINAL: right L 3,4 Nroot Right 09/01/2021 Performed by Darren Lackey MD at [facility] JOINT REPLACEMENT knees- right x2, left x1 KNEE SURGERY rt knee inf removed tka added rods LITHOTRIPSY LUMBAR DISCECTOMY L4-5 Left 10/16/2018 Performed by Suzanne Silverio DO at [facility] STOMACH SURGERY 04/2021 sleeve Allergies Allergen [...] Strain: Low Risk (03/28/2022) Received from [facility] Overall Financial Resource Strain (CARDIA) Difficulty of Paying Living Expenses: Not hard at all Food Insecurity: No Food Insecurity (08/15/2023) Hunger Screening Food Insecurity - Worry: Never True Food Insecurity - Inability: Never True Transportation Needs: Unknown (03/28/2022) Received from [facility], [facility] PRAPARE - Transportation Lack of Transportation (Medical): No Lack of Transportation (Non-Medical): Not on file Physical Activity: Inactive (12/01/2021) Received from [facility], [facility] Exercise Vital Sign Days of Exercise per Week: 0 days Minutes of Exercise per Session: 20 min Stress: No Stress Concern Present (12/01/2021) Received from [facility], [facility] [employer] - Occupational Stress Questionnaire Feeling of Stress : Not at all Social Connections: Moderately Isolated (12/01/2021) Received from [facility], [facility] Social Connection and Isolation Panel [NHANES] Frequency of Communication with Friends and Family: More than three times a week Frequency of Social Gatherings with Friends and Family: Once a week Attends Church Services: Never Active Member of Clubs or Organizations: No Attends Club or Organization Meetings: Never Marital Status: Interpersonal Safety: Unknown (04/18/2023) Received from [facility] [place] Safety & Environment Fear of Current or Ex-Partner: Not on file Emotionally Abused: Not on file Physically Abused: Not on file Sexually Abused: Not on file Physically or Sexually Abused: Not on file Housing Instability: Unknown (03/28/2022) Received from [facility], [facility] Housing Stability Vital Sign Unable to [...] Agustin 08/15/23 1311 documented in this encounter [facility] 07-30-2023 Telephone encounter Note Called Sukhdeep, no answer, left VM [facility] Work Phone: 07-30-2023 Miscellaneous Notes Called Sukhdeep, no answer, left VM Have sent XR Lumbar order to [facility] fax # [phone] as requested from patient. Pt phoned regarding upcoming visit 10[facility] [facility]t. Pt unable to manage virtual visit asking for telephone visit. Pt asking how far in advance to do X-Ray. Pt will have X-Ray done locally at [facility]. Please call and advise Pt phone # [phone] documented in this encounter [facility] 07-30-2023 Telephone encounter Note Have sent XR Lumbar order to [facility] fax # [phone] as requested from patient. [facility] 07-30-2023 Telephone encounter Note Pt phoned regarding upcoming visit 10/[address] [facility]t. Pt unable to manage virtual visit asking for telephone visit. Pt asking how far in advance to do X-Ray. Pt will have X-Ray done locally at [facility]. Please call and advise Pt phone # [phone] [facility] 07-26-2023 Telephone encounter Note Office note faxed. Faxed verification received. [facility] 07-26-2023 Miscellaneous Notes Office note faxed. Faxed verification received. Printed for review. Received request from [employer], in NAVX for review. documented in this encounter [facility] 07-23-2023 Telephone encounter Note Printed for review. [facility] 07-23-2023 Telephone encounter Note Received request from [employer], in [employer] for review. [facility] 05-08-2023 History of Present illness Narrative SPINE SURGERY FOLLOW UP This is a virtual visit using Audio Only Visit. It required patient-provider interaction for the medical decision making as documented below. I have communicated my name and active licensure. The patient's identity and physical location were verified at the time of this visit. Either the patient or their legal registered representative has been informed of the risks [...] visit. Either the patient or their legal registered representative has been informed of the risks [...] 4:00 PM PAGER: documented in this encounter [facility] 05-08-2023 Miscellaneous Notes A letter was [...] made. Message left. documented in this encounter [facility] 05-08-2023 Telephone encounter Note A [...] the time call was made. Message left. [facility] 05-07-2023 Miscellaneous Notes Call received from Hannah, patient's insurance case manager. She called as patient's MEDCO-14 is expiring soon. Hannah is informed that patient called about this and an updated MEDCO-14 was completed and faxed on 05/03/2023. Hannah states she is his insurance case manager and would like information sent [...] will be 05/15/2023-11/14/2023. [facility]23 Telephone encounter Note Call received from Hannah, patient's insurance case manager. She called as patient's MEDCO-14 is expiring soon. Hannah is informed that patient called about this and an updated MEDCO-14 was completed and faxed on 05/03/2023. Hannah states she is his insurance case manager and would like information sent to her at - [employer]. She asked what the form states. She is informed that there are no changes . She asks if patient is able to return to work. She is informed again that MEDCO 14 indicates No Changes and office restrictions ordered by this office have not changed. Hannah is reminded that patient had surgery. Hannah informed that new dates for restrictions will be 05/15/2023-11/14/2023. [facility] 04-18[facility]2023 Miscellaneous Notes Signed form faxed to number requested. Faxed verification received. Printed for review and signature. Received PT Certification from [facility]. Scanned to chart for provider signature. documented in this encounter [facility] 04-16-2023 Miscellaneous Notes Received imaging disc by mail from [facility]. Disc contains CT Lumbar spine done on 04/03/23. Will place in nurse folder in [address]. documented in this encounter [facility] 04-09-2023 Miscellaneous Notes Called & spoke with Sukhdeep Asked him to obtain imaging disc & send to our office. Will require images to be uploaded to assess for bony fusion at previous surgical site and adjacent segment disease. Received CT Lumbar Spine Report from [facility], in epic to review. documented in this encounter [facility] 02-14-2023 History of Present illness Narrative [facility] [address] [place] [address] Patient: Sukhdeep Simental Sex: male : 1965 Age: 57 y.o. PCP: BLAYNE ISABEL MD 02/14/2023 Sukhdeep Simental is here for a 6 month follow up for his [employer] work injury. Chief Complaint Patient presents with Back Pain HPI: 12/07/2022 L2/3 fusion and revised L3/4, S1 at [facility] per patient. Bilateral SI joint injection on 04/17/2021 with 10% relief, pain is worse. 07/07/21 Bilateral L3/4 Medial branch block with no relief. right L 3, 4 nerve root injection on 09/01/2021 with no relef. Back Pain This is a chronic problem. The current episode started more than 1 year ago (surgery 10/16/18 discectomy and 07/10/2019 fusion in [place]). The problem occurs constantly. The problem has [...] disorder Claustrophobia Diabetes mellitus type 2, controlled ([facility]) Fractures Hyperlipidemia Hypertension Joint pain Low back pain Major depression Obesity Osteoarthritis Pulmonary embolism ([facility]) Seasonal allergies Sleep apnea does not use machine Sleep apnea Visual impairment glasses Past Surgical History: Procedure Laterality Date ANKLE SURGERY spurs removed INJECTION BLOCK EPIDURAL CAUDAL STEROID N/A 10/27/2021 Performed by Darren Lackey MD at [facility] INJECTION BLOCK NERVE MEDIAL BRANCH: bilat L 3/4 Bilateral 07/07/2021 Performed by Darren Lackey MD at [facility] INJECTION BLOCK SACROILIAC JOINT Bilateral 04/17/2021 Performed by Darren Lackey MD at [facility] INJECTION SPINE TRANSFORAMINAL: right L 3,4 Nroot Right 09/01/2021 Performed by Darren Lackey MD at [facility] JOINT REPLACEMENT knees- right x2, left x1 KNEE SURGERY rt knee inf removed tka added rods LITHOTRIPSY LUMBAR DISCECTOMY L4-5 Left 10/16/2018 Performed by Suzanne Silverio DO at [facility] STOMACH SURGERY 04/2021 sleeve Allergies Allergen [...] Agustin 02/21/23 1158 documented in this encounter [facility] 02-07-2023 Miscellaneous Notes C9 for physical therapy faxed to [employer]. Faxed verification received. documented in this encounter [facility] 02-07-2023 History of Present illness Narrative [...] which included preparing to see the patient, ecrc-ip-mubt patient care, completing clinical documentation, obtaining and/or reviewing separately obtained history, performing a medically appropriate examination, counseling and educating the patient/family/caregiver, and ordering medications, tests, or procedures. SIGNATURE: Riddhi Goss APRN.CNP PATIENT NAME: Sukhdeep Simental DATE: February 07, 2023 TIME: 2:39 PM PAGER: documented in this encounter [facility] 02-04-2023 Hospital Discharge instructions Patient Education [...] include: ?8 oz (237 mL) of milk, ukluqij-aikgwsvkpdun-nkdgh milk, and calcium-fortifiedfruit juice. Calcium-fortified means that [...] ?Spinach (cooked), rhubarb, beets, sweet potatoes, and [place]an chard. ?Peanuts. ?Potato chips, swiss fries, and baked potatoes with skin on. ?Nuts and nut products. ?Chocolate. If you regularly take a diuretic medicine, make sure to eat at least 1 or 2 servings of fruits or vegetables that are high in potassium each day. These include: ?Avocado. ?Banana. ?[place], prune, carrot, or tomato juice. ?Baked potato. [...] magnesium, fish oil, or vitamin B6. Take avvk-knm-odthlcr and prescription medicines only as told by [...] Casseroles. Pizza. Lasagna. Frozen meals. Potato chips. Nigerien fries. The items listed above may not [...] provider. Document Revised: 05/24/2022 Document Reviewed: 05/24/2022 [employer] Patient Education 2022 [employer]. Follow Up Care 07/27/2022 14:20:34 With:LIDIA JACOBS, Cecelia Jj, URL Address: [facility] [address] , [place] [address]- When:Within 1 Year(s) Comments:w/CT EVELINE w/o José [facility] 01-23-2023 Miscellaneous Notes Received fax from [employer]. Scanned into [employer]. Also received a RTW from [employer]. Scanned into [employer] as well. documented in this encounter [facility] 12-21-2022 Miscellaneous Notes Patient called with complaints of [facility] not allowing him to sampler pickup the pain medication that was sent yesterday. [...] with an update. documented in this encounter [facility] 12-20-2022 History of Present illness Narrative [...] which included preparing to see the patient, yppr-tm-wnvt patient care, completing clinical documentation, obtaining and/or reviewing separately obtained history, performing a medically appropriate examination, counseling and educating the patient/family/caregiver, and ordering medications, tests, or procedures. SIGNATURE: Singh Morgan PA-C PATIENT NAME: Sukhdeep Simental DATE: December 20, 2022 TIME: 2:58 PM PAGER: documented in this encounter [facility] 12-17-2022 Miscellaneous Notes Forms completed and signed by provider. Faxed to number provided and and Sukhdeep notified via voice mail, as requested. Scanned into [employer]. Form completed. Awaiting signature. Printed for review. Received FMLA form by fax from patient's . Scanned to patient's chart for review and completion. documented in this encounter [facility] 12-13-2022 Miscellaneous Notes Spoke with patient [...] a kenya. Xi Schrader PA-C Patient at [phone] is requesting a call back. He had back surgery on 12-07. He states for the past 2 days his right ring and little finger has been numb. documented in this encounter [facility] 12-12-2022 Miscellaneous Notes Spoke with pharmacy and was informed that medication is approved. No prior authorization needed. Patient called stating pharmacy needs a prior authorization for oxycodone 15 mg. I called the pharmacy on 12/12/2022 at 9:40 AM. Insurance will not pay for the frequency of medication written. They will cover q12h. Prescription changed to oxycodone 15 mg 12h. [facility] [id number] - [place] [address] - [address] - [phone] Pharmacist at [facility] wanted to inform the office that this patient already takes Percocet 10-325 every 6 hours, picked it up 13 days ago. They tried running the Percocet but his insurance will not cover both. Please call them back with new instructions. documented in this encounter [facility] 12-11-2022 Note HNO ID: [id number] Author: Lulu Oviedo MD Service: General Internal [...] 10 mg tab( (more content not included)... [facility] 12-10-2022 Note HNO ID: [id number] Author: Lulu Oviedo MD Service: General Internal Medicine Author Type: Physician Type: Progress Notes Filed: 12/10/2022 1:03 PM Note Text: PROGRESS NOTE - INTERNAL MEDICINE PATIENT NAME: Sukhdeep Simental SERVICE DATE: December 10, 2022 SERVICE TIME: 1:01 PM PCP: Blayne Isabel MD ADMITTING PHYSICIAN: Thomas Mathew MD MD INTERVAL HISTORY OF PRESENT ILLNESS: pt seen denied cp/ sob . Pain / / no weakness REVIEW OF SYSTEMS: GENERAL: [...] 10% iv bolu (more content not included)... [facility] 12-09-2022 Note HNO ID: [id number] Author: Alyssa Tim APRN.FLYING TEACHER Service: Neurosurgery Author Type: Nurse Practitioner Type: [...] is currently not well controlled despite Dilaudid DIRECTOR OF DISTRICT OFFICE and Toradol. He denies new weakness, numbness, [...] mg ORAL q 8 H Archual, Alyssa, WELL TREATMENT OFFSIDER.FLYING TEACHER 1,000 mg at 12/09/22 0559 aluminum-magnesium hydroxide-simethicone 200-200-20 mg/5 mL 30 mL 30 mL ORAL q 6 H PRN Archual, Alyssa, WELL TREATMENT OFFSIDER.FLYING TEACHER bisacodyl EC 10 mg tab(s) (DULCOLAX) 10 mg ORAL DAILY PRN Archual, Alyssa, WELL TREATMENT OFFSIDER.FLYING TEACHER dextrose 40 % 15 g 15 g ORAL PRN Archual, Alyssa, WELL TREATMENT OFFSIDER.FLYING TEACHER Or glucagon 1 mg injection 1 mg INTRAMUSCULAR PRN Archual, Alyssa, WELL TREATMENT OFFSIDER.FLYING TEACHER Or dextrose 10% iv bolus 12.5 g INTRAVENOUS PRN Archual, Alyssa, WELL TREATMENT OFFSIDER.FLYING TEACHER docusate sodium 100 mg cap(s) (COLACE) 100 mg ORAL BID Thomas Mathew MD 100 mg at 12/09/22 0821 doxazosin 4 mg tab(s) (CARDURA) 4 mg ORAL DAILY Thomas Mathew MD 4 mg at 12/09/22 0821 fentaNYL DIRECTOR OF DISTRICT OFFICE 20 mcg/mL in NaCl 0.9% 100 mL (SUBLIMAZE) INTRAVENOUS CONTINUOUS Archual, Alyssa, WELL TREATMENT OFFSIDER.FLYING TEACHER ferrous sulfate 325 mg tab(s) 325 mg ORAL DAILY Archual, Alyssa, WELL TREATMENT OFFSIDER.FLYING TEACHER 325 mg at 12/09/22 0821 heparin 5,000 Units injection 5,000 Units SUBCUTANEOUS q 12 H Archual, Alyssa, WELL TREATMENT OFFSIDER.FLYING TEACHER 5,000 Units at 12/09/22 0821 hydrOXYzine HCl 25 mg tab(s) (ATARAX) 25 mg ORAL q 6 H PRN Archual, Alyssa, WELL TREATMENT OFFSIDER.FLYING TEACHER insulin lispro injection (rapid acting) (HumaLOG) SUBCUTANEOUS w MEALS AND HS Archual, Alyssa, WELL TREATMENT OFFSIDER.FLYING TEACHER 1 Units at 12/07/22 1803 lactated ringers iv infusion 75 mL/hr INTRAVENOUS CONTINUOUS Thomas Mathew MD 75 mL/hr at 12/09/22 1018 75 mL/hr at 12/09/22 1018 methocarbamol 750 mg tab(s) (ROBAXIN) 750 mg ORAL QID Archual, Alyssa, WELL TREATMENT OFFSIDER.FLYING TEACHER NaCl 0.9% iv flush bag 20 mL INTRAVENOUS PRN Thomas Mathew MD naloxone 0.1 mg injection (NARCAN) 0.1 mg INTRAVENOUS q 2 MIN PRN Archual, Alyssa, WELL TREATMENT OFFSIDER.FLYING TEACHER omeprazole 20 mg cap(s) (PriLOSEC) 20 mg ORAL 2 times per day [facility], [facility] 20 mg at 12/08/222019 ondansetron 4 mg tab(s) (ZOFRAN) 4 mg ORAL q 6 H PRN Thomas Mathew MD Or ondansetron (PF) 4 mg injection (ZOFRAN) 4 mg INTRAVENOUS q 6 H PRN Thomas Mathew MD 4 mg at 12/09/22 0941 polyethylene glycol 3350 17 g packet 17 g ORAL DAILY Archual, Alyssa, WELL TREATMENT OFFSIDER.FLYING TEACHER 17 g at 12/09/22 0821 simvastatin 10 mg tab(s) (ZOCOR) 10 mg ORAL AT BEDTIME Thomas Mathew MD 10 mg at 12/08/222019 tamsulosin 0.4 mg cap(s) (FLOMAX) 0.4 mg ORAL DAILY Thomas Mathew MD 0.4 mg at 12/09/22 0821 traZODone 150 mg tab(s) (DESYREL) 150 mg ORAL AT BEDTIME Alyssa Tim APRN.FLYING TEACHER 150 mg at 12/08/222019 valsartan 80 mg tab(s) (DIOVAN) 80 mg ORAL DAILY Alyssa Tim APRN.FLYING TEACHER 80 mg at 12/09/22 0822 ASSESSMENT AND [...] pain control, Pain management consulted, started Fentanyl DIRECTOR OF DISTRICT OFFICE today due to continued uncontrolled pain, Robaxin and Tylenol scheduled, no further Toradol due to CKD 3. -Check postop lumbar XR today -Medicine consult for post-operative medical management -Discharge planning, anticipate discharge home in 1-2 more days. Plan of care discussed with Dr. Mathew via phone. Medication and Non-Pharmacologic VTE Prophylaxis/Anticoagulants 10/25/21 1215 vte pharmacologic prophylaxis contraindicated (fl,oh) (more content not included)... [facility] 12-08-2022 Note HNO ID: [id number] Author: Alyssa Tim APRN.FLYING TEACHER Service: Neurosurgery Author Type: Nurse Practitioner Type: [...] on POD #2 -Post-operative pain control, Dilaudid DIRECTOR OF DISTRICT OFFICE discontinued. Continue Tylenol, Toradol IV, and Robaxin PRN. Start oxycodone every 3 hours PRN and Dilaudid IV PRN. -Check postop XR tomorrow. -Medicine consult for post-operative medical management -Discharge planning, anticipate discharge home in 1-2 more days. Plan of care discussed with Dr Hopper via phone. Medication and Non-Pharmacologic VTE Prophylaxis/Anticoagulants 10/25/21 1215 vte pharmacologic prophylaxis contraindicated (ak,oh) 10/25/21 1215 pneumatic compression stockings (ak,nm) 10/25/21 1215 activity - mobilize patient ([place], [place]) VTE Prophylaxis: VTE prophylaxis appropriate SIGNATURE: Alyssa Tim APRN.FLYING TEACHER DATE: December 08, 2022 TIME: 1:50 PM [facility] 12-08-2022 Note HNO ID: [id number] Author: Note, Interface Service: ? Author Type: ? Type: Progress Notes Filed: 12/08/2022 3:59 AM Note Text: Epic Scheduled Downtime: 12/08/2022 1:00:00 AM to 12/08/2022 1:28:00 AM [facility] 12-07-2022 Note HNO ID: [id number] Author: Aaron Noriega AA Service: Anesthesiology Author Type: Silk Hanger Type: Anesthesia Procedure Notes Filed: 12/07/2022 8:04 [...] December 07, 2022 TIME: 8:03 AM CSN: [id number] [facility] 12-06-2022 Evaluation note Encounter Date [...] has adequate iron stores. 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 12/07/2022 documented as of this encounter (statuses as of 12/18/2022) [facility] History of Past illness Narrative* Problem Noted Date Diagnosed Date Resolved Date Secondary hyperparathyroidism 11/21/2022 11/21/2022 11/21/2022 Corneal edema, unspecified 12/10/2013 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 12/07/2022 documented as of this encounter (statuses as of 12/21/2022) [address]-2023 History of Past illness Narrative* Problem Noted Date Diagnosed Date Resolved Date Secondary hyperparathyroidism 11/21/2022 11/21/2022 11/21/2022 Corneal edema, unspecified 12/10/2013 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 12/07/2022 documented as of this encounter (statuses as of 12/21/2022) [address]-2023 History of Past illness Narrative* Problem Noted Date Diagnosed Date Resolved Date Secondary hyperparathyroidism 11/21/2022 11/21/2022 11/21/2022 Corneal edema, unspecified 12/10/2013 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 12/07/2022 documented as of this encounter (statuses as of 01/24/2023) [address]-2023 History of Past illness Narrative* Problem Noted Date Diagnosed Date Resolved Date Secondary hyperparathyroidism 11/21/2022 11/21/2022 11/21/2022 Corneal edema, unspecified 12/10/2013 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 12/07/2022 documented as of this encounter (statuses as of 02/08/2023) [address]-2023 History of Past illness Narrative* Problem Noted Date Diagnosed Date Resolved Date Secondary hyperparathyroidism 11/21/2022 11/21/2022 11/21/2022 Corneal edema, unspecified 12/10/2013 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 12/07/2022 documented as of this encounter (statuses as of 02/09/2023) [address]-2023 History of Past illness Narrative* Problem Noted Date Diagnosed Date Resolved Date Secondary hyperparathyroidism 11/21/2022 11/21/2022 11/21/2022 Corneal edema, unspecified 12/10/2013 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 12/07/2022 documented as of this encounter (statuses as of 04/09/2023) [address]23 History of Past illness Narrative* Problem Noted Date Diagnosed Date Resolved Date Secondary hyperparathyroidism 11/21/2022 11/21/2022 11/21/2022 Corneal edema, unspecified 12/10/2013 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 12/07/2022 documented as of this encounter (statuses as of 04/18/2023) [facility] History of Past illness Narrative* Problem Noted Date Diagnosed Date Resolved Date Secondary hyperparathyroidism 11/21/2022 11/21/2022 11/21/2022 Corneal edema, unspecified 12/10/2013 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 Given both written and verbal instructions re : Skin prep, wound care, pain management and post op restrictions. Provided to patient: [facility] Surgery Guide, skin prep supplies, Spine Surgery Pre/post op education packet. Yes Reviewed with patient to report to the registration desk for surgery? Yes. Reviewed with the patient that a surgery key account representative will call the working day prior [...] lab work : To be completed at [facility]. Questions answered. Patient verbalizes understanding via teach back. Additional comments : Informed to call with any questions or concerns. Juan Pablo Nova RN [facility] of Present illness Narrative* Thomas [...] TIME: 2:20 PM PAGER: [facility] NoteHNO ID: [id number] Author: Sonya Wilhelm APRN.FLYING TEACHER Service: ? Author Type: Nurse Practitioner Type: Progress Notes Filed: 10/16/2022 4:03 PM Note Text: Per Triage: Sukhdeep Simental is a 57 year old male that requests evaluation of lumbar spine. Per review, they have symptoms of LBP Hip pain Leg pain (R) Numbness, Tingling Toes Trouble lifting leg (R) Prev surgery yes L4-S1 fusion in [facility] CMT: Injection Muscle relaxants, Zanaflex [...] schedule with first available lumbar revision surgeon. [facility] History of Present illness Narrative* Sonya Wilhelm APRN.FLYING TEACHER - 10/16/2022 3:51 PM EDT Per Triage: Sukhdeep Simental is a 57 year old male that requests evaluation of lumbar spine. Per review, they have symptoms of LBP Hip pain Leg pain (R) Numbness, Tingling Toes Trouble lifting leg (R) Prev surgery yes L4-S1 fusion in [facility] CMT: Injection Muscle relaxants, Zanaflex [...] Health Provider or Pain Management Provider at [facility]? No If answer is YES please [...] facility where the MRI/CT/myelogram was completed: [facility] Address: [address] [place] [address] MRI/CT/myelogram viewable in Epic: No If not, please provide [phone] to fax in imaging reports for review. [...] injections and/or physical therapy was completed Injection [facility] Address: [address] [place] [address] Have you tried any other kinds of [...] of where the surgery was completed: 2019 [facility] Address: [address], [place] [address] Additional Comments [phone] (Home Phone) documented in [facility] NoteHNO ID: [id number] Author: Adonis Lopez Service: ? Author Type: ? Type: Progress Notes Filed: 10/16/2022 4:03 PM Note Text: Patient name: Sukhdeep Simental Are you being referred by a [facility] Provider or Pain Management Provider at [facility]? No If answer is YES please [...] facility where the MRI/CT/myelogram was completed: [facility] Address: [address] [place] [address] MRI/CT/myelogram viewable in Epic: No If not, please provide [phone] to fax in imaging reports for review. [...] injections and/or physical therapy was completed Injection [facility] Address: [address] [place] [address] Have you tried any other kinds of [...] of where the surgery was completed: 2019 [facility] Address: [address], [place] [address] Additional Comments [phone] (Home Phone)[facility]04-27-2023 Evaluation note* Encounter Date Diagnosis [...] will continue to monitor without any medications. [employer] Other 01-23-2023 Hospital Discharge instructions Patient Education [...] include: ?Spinach. ?Rhubarb. ?Beets. ?Potato chips and swiss fries. ?Nuts. If you regularly take a diuretic medicine, make sure to eat at least 1 2 fruits or vegetables high in potassium each day. These include: ?Avocado. ?Banana. ?[place], prune, carrot, or tomato juice. ?Baked potato. [...] Casseroles. Pizza. Lasagna. Frozen meals. Potato chips. Nigerien fries. Summary You can reduce your risk [...] 06/08/2011 Document Revised: 06/03/2019 Document Reviewed: 01/22/2017 [employer] Patient Education 2019 [employer]. Follow Up Care 03/15/2022 09:49:40 With:LIDIA JACOBS, Cecelia Jj, URL Address: [facility] [address], [place] [address]- When: Unknown [facility] 01-16-2023 NoteIndication: Renal mass. Comparison: 07/14/2021 [...] Electronically authenticated by: CITLALI GIRON Date: 2022-03-12 18:03[facility]10-21-2022 Evaluation note* Encounter Date Diagnosis Assessment [...] be cultured for infection, gonorrhea, chlamydia, yeast. [employer] Other 08-31-2022 Evaluation note* Encounter Date Diagnosis [...] paraproteinemia due to the CKD and anemia. [employer] Other 04-01-2022 History of Present illness Narrative* [...] the original note were not included. Mix Dictaphone Operator Progress Note Date: 05/26/2021 Patient name: [...] 2. Ok for d/c from cardiology standpoint. Gould Dictaphone Operator [facility]. [phone] * Octavio Mcclellan DO - 05/25/2021 5:42 [...] RN - 05/25/2021 8:32 AM EDT Mix Dictaphone Operator Documentation Note Admission Dx: S/P laparoscopic [...] on an annual basis Tona Foreman RN Gould Dictaphone Operator * Sonya Ramírez, DO - 05/25/2021 [...] Day of Surgery/Procedure As a patient at [facility] you can expect quality medical and nursing care that is centered on your individual needs. Our goal is to make your surgical experience as comfortableas possible . Directions to the Surgery Center [facility] is located at [address] [place] [address]. Please pull into the Emergency parking lot and stop at the naval surface fire support planner ojeda. We offer free naval surface fire support planner service for all our surgery patients, if you choose not to have naval surface fire support planner parking we have additional parking across the street.You will enter the facility under the blue canopy/walkway following the [facility] sign. Please stop at the switchboard receptionist desk where you will be checked in by the staff. If you have any questions please call [phone]. Transportation after your procedure. You will need a friend or family member to drive you home after your procedure. Your pile driver engineer must be18 years of age or older [...] You may shave your face or neck. [address] your teeth but do not swallow water. [...] or the day of surgery, please call [phone], or [phone] documented in this [facility] Phone: 1(315) 308-880503-31-2022 Hospital Discharge instructions* Discharge Instr - KAMARI* Jenny Lentz RN - 05/25/2021 5:44 PM EDT PHYSICIAN SIGNATURE: * Additional Instructions* Jenny Lentz RN - 05/26/2021 Discharge Instructions for Bariatric Surgery You had a Laparoscopic Sleeve Gastrectomy (19439) surgery to treat obesity. Recovery from this [...] scheduled appointment, please call the office at [phone]. Call Your Doctor If Any of the [...] sent through Care Everywhere. * Enoxaparin (Lovenox) (Ghanaian) * metoprolol (oral/injection) (Ghanaian) * acetaminophen and oxycodone (Ghanaian) documented in this [facility] Phone: 1(840) 734-347103-09-2022 Hospital Discharge instructions* Instructions* Etelvina Ledbetter WELL TREATMENT OFFSIDER - FLYING TEACHER - 05/03/2021 Pre-operative Instructions Please arrive at [...] list you provided today, ACCORDING TO YOUR EXERCISER, PLEASE HOLD ELIQUIS 3 DAYS PRIOR TO [...] public transportation ALONE is not acceptable. -Your pile driver engineer must be 18 years of age or [...] Day of Surgery/Procedure As a patient at [facility] you can expect quality medical and nursing care that is centered on your individual needs. Our goal is to make your surgical experience as comfortableas possible . Directions to the Surgery Center [facility] is located at [address] [place] [address]. Please pull into the Emergency/Surgery Center parking lot and stop at the [facility] ojeda. We offer free naval surface fire support planner service for all our surgery patients, if you choose not to have naval surface fire support planner parking we have additional parking across the [...] pharmacy bottles in a zip lock bag. [address] your teeth but do not swallow water. [...] DAY OF your surgery, you may call [phone] documented in this [facility] Work Phone: evaluation + Plan note Future Appointments Appointment Date:07/16/2022 02:45:00 PM Scheduled Provider:Cecelia MURILLO MD Location:[facility] Appointment Type:URO Office Visit [facility] evaluation + Plan note Future Appointments Appointment Date:02/04/2023 09:15:00 AM Scheduled Provider:Cecelia MURILLO MD Location:[facility] Appointment Type:URO Office Visit General Surgery [facility] Evaluation + Plan note Future Appointments Appointment Date:02/03/2024 10:30:00 AM Scheduled Provider:[facility]ec[facility]URILLO [facility] Office Visit Diagnostic Tests Pending * PSA Total 02/04/23 [facility] evaluation + Plan note Future Appointments Appointment Date:08/13/2025 10:45:00 AM Scheduled Provider:Cecelia MURILLO MD Location:[facility] Appointment Type:URO Office Visit Diagnostic Tests Pending * PSA Total 06/25/25 [facility] evaluation + Plan note Future Appointments Appointment Date:08/13/2025 10:45:00 AM Scheduled Provider:Cecelia MURILLO MD Location:[facility] Appointment Type:URO Office Visit [facility] evaltotaux note* Diagnosis Pre-op chest exam Pre-operative respiratory examination documented in this encounter [facility] Phone: [email or web address] note* Diagnosis S/P laparoscopic sleeve gastrectomy- Primary documented in this encounter [facility] Phone: [email or web address] noteNo InformationN[facility]oper [facility] Dress Code Other Evaluation noteNo assessment information available [facility] Work Phone: Evaluation note* Diagnosis Lumbar adjacent segment disease with spondylolisthesis- Primary Lumbar adjacent segment disease with spondylolisthesis [facility]* Diagnosis Lumbar adjacent segment disease with spondylolisthesis- Primary documented in this encounter [facility] note* Diagnosis Lumbar adjacent segment disease with spondylolisthesis- Primary documented in this encounter [facility] note* Diagnosis Radiculopathy, lumbar region- Primary Thoracic or lumbosacral neuritis or radiculitis, unspecified [facility] Diagnosis Onset Date Resolution Status CKD (chronic kidney disease) stage 3, GFR 30-59 ml/min acute [id number] acute Hyperuricemia acute Microscopic hematuria acute Nephrolithiasis acute Secondary hyperparathyroidism acute Type 2 diabetes 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 acute [facility] Work Phone: Evaluation note* Diagnosis Spinal stenosis, lumbar region, with neurogenic claudication- Primary [facility] Diagnosis Spinal stenosis, lumbar region, with neurogenic claudication- Primary [facility] Diagnosis Spinal stenosis, lumbar region, with neurogenic claudication- Primary documented in this encounter [facility] general Narrative - Reported* Type Description Date [...] GASTRIC SLEEVE 04/2021 Hospitalization History SEE ABOVE [employer] Other History general Narrative - Reported* Type [...] REPLACEMENT 04/16 22 Hospitalization History SEE ABOVE [employer] [facility] Other Hospital course Narrative No data available for this section [facility] Hospital Discharge instructions No data available for this section General Surgery [facility] InstructionsNot on filedocumented in this encounter [facility] filedocumented in this encounter [facility] on filedocumented in this encounter [facility]Not on filedocumented in this encounter [facility] No data available for this section [facility] reason for referral (narrative)* Diagnostic Procedure Only (Routine) - Pending Review Specialty Diagnoses / Procedures Referred By Contac t Referred To Contact XR IMAGING Diagnoses Lumbar adjacent segment disease with spondylolisthesis Procedures XR LUMBAR LIMITED 2V AP/LAT RADEX SPINE LUMBOSACRAL 2/3 VIEWS Singh Morgan PA-C [address] [place] [address] Xr Imaging [facility] Referral ID Status Reason Start Date Expiration Date Visits Requested Visits Authorized [id number] Pending Review Auto-Generat ed Referral 01/19/2024 1 1 [facility] for referral (narrative)* Diagnostic Procedure Only (Routine) - Pending Review Specialty Diagnoses / Procedures Referred By Contac t Referred To Contact XR IMAGING Diagnoses Radiculopathy, lumbar region Procedures XR LUMBAR LIMITED 2V AP/LAT RADEX SPINE LUMBOSACRAL 2/[place] [address] [place] [address] Xr Imaging [facility] Referral ID Status Reason Start Date Expiration Date Visits Requested Visits Authorized [id number] Pending Review Auto-Generat ed Referral 05/08/2023 06/06/2024 1 1 [facility] for visit Narrative* Auth/Cert Specialty Diagnoses / Procedures Referred By Contac t Referred To Contact Diagnoses Morbid obesity (HCC) Type II diabetes circulatory disorder causing erectile dysfunction (HCC) Hypertension MORBID OBESITY, TYPE II DIABETES, HYPERTENSION Procedures OH LAP, JUAN RESTRICT PROC, LONGITUDINAL GASTRECTOMY XI ROBOTIC LAPOROSCOPIC GASTRECTOMY SLEEVE, LIVER BIOPSY, EGD- GI SCHEDULED Octavio Mcclellan, [address] [place] [address] [email or web address] [address] [place] [address] Referral ID Status Reason Start Date Expiration Date Visits Re quested Visits Authorized 1 1 [facility] Phone: Advance Directives No Advanced Directives Records FoundDocuments on File Type Date Recorded Patient Senior Benefits Analyst Expl anation Advance Directives and Living Will Power of Supervisor Functional Testing Advance Directive Response Recorded Date/ Time Advance Directives No September 16 2:32pm Documents on File Type Date Recorded Patient Senior Benefits Analyst Expl anation ACP-Advance Directive ACP-Power of Supervisor Functional Testing Documents on File Type Date Recorded Patient Senior Benefits Analyst Expl anation ACP-Advance Directive ACP-Power of Supervisor Functional Testing Latest Code Status on File Code Status [...] Fluid retention in legs Alexandro Muhammad MD [address] [place] [address] Maite John MD [address] [place] [address] Scheduling Instructions . Specialty Diagnoses / Procedures Referred By Enoch luna Referred To Contact [facility] Diagnoses Lumbar adjacent segment disease with spondylolisthesis Procedures CONSULT TO [facility] (CHRONIC PAIN) OFFICE/OUTPATIENT NEW HIGH MDM 60-[place] [address] [place] [address] Referral ID Status Reason Start Date Expiration Date Visits Requested Visits Authorized [id number] Pending Review PCP Requested Referral 11/05/2022 11/05/2023 1 1 Specialty Diagnoses / Procedures Referred By Enoch luna Referred To Contact [facility] Diagnoses Lumbar adjacent segment disease with spondylolisthesis Procedures CONSULT TO PHYSICAL THERAPY PHYSICAL THERAPY EVALUATION HIGH COMPLEX 45 MINS Riddhi Goss, WELL TREATMENT OFFSIDER.FLYING TEACHER [address] [place] [address] [facility] [address] [place] [address] Referral ID Status Reason Start Date Expiration Date Visits Requested Visits Authorized [id number] Pending Review Auto-Generat ed Referral 3 02/07/2024 [...] has been treated in the past by ships equipment engineer as well as his PCP. They contribute [...] file Gets together: Not on file Attends amish service: Not on file Active member of [...] pain of 8 , Dr Silverio revision 126-15, he has been back to Dr Silverio and he referred to Dr Muhammad Date: 01/08/2020 2:19 PM Patient: Sukhdeep Simental MR#: [id number] : 1965 Age: 54 y.o. 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 [...] []Chair,[]cane, []bracing Are you followed by a point of care technician? [] [x] Name: Are you followed by [...] kidney disease) stage 3, GFR 30-59 ml/min [id number] Hyperuricemia Microscopic hematuria Nephrolithiasis Secondary hyperparathyroidism Type 2 diabetes mellitus with diabetic chronic kidney disease Discharge Instructions * Attachments The following attachments cannot be sent through Care Everywhere. * Back Pain (Ghanaian) documented in this encounter Additional Source Comments (unrecognized sect ion and content) No Status Records FoundNo Status Records FoundNo Status Records FoundNo Status Records FoundNo Status Records FoundNo Status Records FoundNo Status Records FoundNo Status Records FoundNo Status Records FoundNo Status Records FoundNo Status Records FoundNo Status Records Found INFORMATION SOURCE (unrecogn ized section and content) DATE CREATED AUTHOR 04/18/2019 [facility] DATE CREATED AUTHOR AUTHOR'S ORGANIZ ATION 06/10/2019 [facility] DATE CREATED AUTHOR AUTHOR'S ORGANIZ ATION 07/21/2021 [facility] DATE CREATED AUTHOR AUTHOR'S ORGANIZ ATION 10/22/2021 [facility] DATE CREATED AUTHOR AUTHOR'S ORGANIZ ATION 01/23/2022 [facility] DATE CREATED AUTHOR AUTHOR'S ORGANIZ ATION 08/04/2022 [facility] DATE CREATED AUTHOR AUTHOR'S ORGANIZ ATION 12/12/2022 [facility] DATE CREATED AUTHOR AUTHOR'S ORGANIZ ATION 07/27/2023 [facility] DATE CREATED AUTHOR AUTHOR'S ORGANIZ ATION 02/16/2024 [facility] DATE CREATED AUTHOR AUTHOR'S ORGANIZ ATION 06/19/2024 [facility] DATE CREATED AUTHOR AUTHOR'S ORGANIZ ATION 06/30/2024 [facility] DATE CREATED AUTHOR AUTHOR'S ORGANIZ ATION 11/27/2024 [facility] Reason for Visit (unrecogniz ed section and content) Status Reason Specialty Diagnoses / Procedures Referred By Contact Referred To Contact Pending Review Diagnoses Hx of total knee arthroplasty, right Procedures XR BONE LENGTH STUDY Alexandro Muhammad MD [address] [place] [address] Reason Comments Pain Status Reason Specialty Diagnoses / Procedures Referred By Contact Referred To Contact Closed Cardiovascular Medicine Diagnoses Localized edema Procedures ECHOCARDIOGRAM [place] ECHO HEART XTHORACIC,COMPLETE W DOPPLER Suzanne Pruett MD [address] [place] [address] Horace Buc Echocardiograph y [address] [place] [address] Reason Comments Back Pain Lower back pain s/p slip on ice Buttocks Pain Rt buttocks pain Reason Comments New Patient Lumbar spine Specialty Diagnoses / Procedures Referred By Enoch luna Referred To Contact Neurosurgery / NEUROSURGERY Diagnoses lumbar spine [facility] records requested Procedures REFERRAL TO [facility] FINANCIAL COUNSELOR NEW SPINE SURGICAL TRIAGE Jason Miller [address] [place] [address] [place] [address] [place] [address] Referral ID Status Reason Start Date Expiration Date V isits Requested Visits Authorized [id number] Outside PCP 11/05/2022 01/04/2023 99 99 Reason [...] POST OP NEUS/NRES Self Xi Schrader PA-C [address] [place] [address] Referral ID Status Reason Start Date Expiration Date Visits Re quested Visits Authorized [id number] Closed 12/20/2022 02/24/2023 1 1 Reason Comments Received Outside Medical Records promedi ca Reason Comments Follow Up Specialty Diagnoses / Procedures Referred By Contac t Referred To Contact Neurosurgery / NEUROSURGERY Diagnoses Follow-up exam Follow Up Procedures OFFICE/OUTPATIENT ESTABLISHED MOD MDM 30-39 MIN EST NI PATIENT Self Xi Schrader PA-C [address] [facility]. [place] [id number] Referral ID Status Reason Start Date Expiration Date Visits Re quested Visits Authorized [id number] Closed 02/07/2023 02/07/2023 1 1 Reason Comments PT Certification Specialty Diagnoses / Procedures Referred By Contac t Referred To Contact Neurosurgery / NEUROSURGERY Diagnoses Lumbar adjacent segment disease with spondylolisthesis discuss imaging and [facility] requirements Procedures PHYS/QHP TELEPHONE EVALUATION 5-10 MIN [place]IDEO [place] [address] [place] [place] [id number] Referral ID Status Reason Start Date Expiration Date V isits Requested Visits Authorized [id number] Denied Patient Cleared - Admin/Chairm an/Director advise [...] November 07, 2023 End: November 07, 2023 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 Start Date End Date Blayne Isabel MD [address] [place] [address] PCP - General Family Medicine 04/11/19 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 Start Date End Date Blayne Isabel MD [address] [place] [address] PCP - General Family Medicine 04/11/19 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 Start Date End Date Blayne Isabel MD [address] [place] [address] PCP - General Family Medicine 04/11/19 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 Start Date End Date Blayne Isabel MD [address] [place] [address] PCP - General Family Medicine 04/11/19 Team Status: Inactive Member Role Status Dates STEPH Sarkar Attending Provider Active Team Status: Inactive Member Role Status Dates PHYSICIAN NO FAMILY Primary Care Provider Active Gianni Nelson DO Attending Provider Active Team Status: Inactive Member Role Status Dates STEPH Sarkar Attending Provider Active PHYSICIAN NO FAMILY Primary Care Provider Active 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 Start Date End Date Blayne Isabel MD PCP - General Family Medicine 11/06/13 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 Start Date End Date Blayne Isabel MD PCP - General Family Medicine 11/06/13 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 Start Date End Date Blayne Isabel MD PCP - General Family Medicine 11/06/13 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 Start Date End Date Blayne Isabel MD PCP - General Family Medicine 11/06/13 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 Start Date End Date Blayne Isabel MD PCP - General Family Medicine 11/06/13 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 Start Date End Date Blayne Isabel MD PCP - General Family Medicine 11/06/13 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 Start Date End Date Blayne Isabel MD PCP - General Family Medicine 11/06/13 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 Start Date End Date Blayne Isabel MD PCP - General Family Medicine 11/06/13 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 Start Date End Date Blayne Isabel MD PCP - General Family Medicine 11/06/13 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 Start Date End Date Blayne Isabel MD PCP - General Family Medicine 11/06/13 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 Start Date End Date Blayne Isabel MD PCP - General Family Medicine 11/06/13 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 Start Date End Date Blayne Isabel MD PCP - General Family Medicine 11/06/13 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 Start Date End Date Blayne Isabel MD PCP - General Family Medicine 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 Start Date End Date Blayne Isabel MD PCP - General Family Medicine 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 Start Date End Date Blayne Isabel MD [address] [place] [address] PCP - General [facility] 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 [place] [address] [place], [place] [id number] PCP - General Family Medicine 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 Start Date End Date Blayne Isabel MD PCP - General Family Medicine 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 Start Date End Date Blayne [...] Reich, BRETT) 925 (Given - Provider: Jenny Lentz, RN) ceFAZolin [...] Milagros Reich RN)2131 (Given - Provider: Batsheva Craias RN) 925 (Given - Provider: Jenny Lentz, BRETT)2099 (Due) [...] Bronchodilator Protocol: Yes, q6 hours and PRN 1529 (Due)2057 (Not Given - Provider: Naheed Fernando [...] Discontinued 1408 (Given - Provider: Milagros Reich RN)213 (Given - Provider: Batsheva Carias, RN) 1009 (Given - Provider: Jenny Lentz RN)2099 (Due) scopolamine (TRANSDERM-SCOP) transdermal patch 1 patch (CANCELED) 1 patch, TransDERmal, Administer over 72 Hours, EVERY 72 HOURS, First dose on Sat05/24/21 at 1700, 1.5 mg patch delivers 1 mg over 3 days. Apply patch to hairless area behind the ear., Post-op 171 (Patch Applied - Provider: Milagros Reich RN) 162 (Patch Removed - Provider: Milagros Reich RN [...] or Central Line = 20 mL/lumen, Post-op 2115 (Not Given - Provider: Giselle Painting RN - Reason: IV Fluid Infusing) 0838 (Not Given - Provider: Milagros Reich RN - Reason: IV Fluid Infusing)2131 (Given - Provider: Batsheva Carias RN) 1006 [...] 2125 (Given - Provider: Giselle Painting RN) 040 (Given - Provider: Giselle Painting RN)1616 (Given [...] 2125 (Given - Provider: Giselle Painting RN) 042 (Given - Provider: Giselle Painting RN)1148 (Given - Provider: Milagros Reich RN)1839 (Given - Provider: Milagros Reich RN) 0051 (Given - Provider: Alesha Shaikh RN)0755 (Given - Provider: Jenny Lentz, RN)1348 (Given - Provider: Jenny Lentz, RN) promethazine (PHENERGAN) tablet 25 mg 25 mg, Oral, EVERY 6 HOURS PRN, Starting on Sat05/24/21 at 1507, Until Discontinued, Nausea 1652 (Given - Provider: Milagros Reich, RN) 0257 (Given - Provider: Alesha Shaikh, BRETT) sodium chloride 0.9 % irrigation (COMPLETED) CONTINUOUS PRN, Starting on Sat05/24/21 at 1351, Intra-op 1351 (New Bag - Provider: Octavio Mcclellan, DO - Comment: 1000 ml. 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.) sodium chloride flush 0.9 % injection 5-40 [...] or prosecute any alcohol or drug abuse patient.[facility] HospitalIn the event this information is protected by the Federal Confidentiality of Alcohol and Drug Abuse Patient Records regulations: The Federal rules restrict any use of the information to criminally investigate or prosecute any alcohol or drug abuse patient.[facility] HospitalIn the event this information is protected by the Federal Confidentiality of Alcohol and Drug Abuse Patient Records regulations: The Federal rules restrict any use of the information to criminally investigate or prosecute any alcohol or drug abuse patient.[facility] HospitalIn the event this information is protected by the Federal Confidentiality of Alcohol and Drug Abuse Patient Records regulations: The Federal rules restrict any use of the information to criminally investigate or prosecute any alcohol or drug abuse patient.[facility] HospitalIn the event this information is protected by the Federal Confidentiality of Alcohol and Drug Abuse Patient Records regulations: The Federal rules restrict any use of the information to criminally investigate or prosecute any alcohol or drug abuse patient.[facility] HospitalIn the event this information is protected by the Federal Confidentiality of Alcohol and Drug Abuse Patient Records regulations: The Federal rules restrict any use of the information to criminally investigate or prosecute any alcohol or drug abuse patient.[facility] HospitalIn the event this information is protected by the Federal Confidentiality of Alcohol and Drug Abuse Patient Records regulations: The Federal rules restrict any use of the information to criminally investigate or prosecute any alcohol or drug abuse patient.[facility] HospitalIn the event this information is protected by the Federal Confidentiality of Alcohol and Drug Abuse Patient Records regulations: The Federal rules restrict any use of the information to criminally investigate or prosecute any alcohol or drug abuse patient.[facility] HospitalIn the event this information is protected by the Federal Confidentiality of Alcohol and Drug Abuse Patient Records regulations: The Federal rules restrict any use of the information to criminally investigate or prosecute any alcohol or drug abuse patient.[facility] HospitalIn the event this information is protected by the Federal Confidentiality of Alcohol and Drug Abuse Patient Records regulations: The Federal rules restrict any use of the information to criminally investigate or prosecute any alcohol or drug abuse patient.[facility] HospitalIn the event this information is protected by the Federal Confidentiality of Alcohol and Drug Abuse Patient Records regulations: The Federal rules restrict any use of the information to criminally investigate or prosecute any alcohol or drug abuse patient.[facility] HospitalIn the event this information is protected by the Federal Confidentiality of Alcohol and Drug Abuse Patient Records regulations: The Federal rules restrict any use of the information to criminally investigate or prosecute any alcohol or drug abuse patient.[facility] HospitalIn the event this information is protected by the Federal Confidentiality of Alcohol and Drug Abuse Patient Records regulations: The Federal rules restrict any use of the information to criminally investigate or prosecute any alcohol or drug abuse patient.[facility] HospitalIn the event this information is protected by the Federal Confidentiality of Alcohol and Drug Abuse Patient Records regulations: The Federal rules restrict any use of the information to criminally investigate or prosecute any alcohol or drug abuse patient.[facility] HospitalIn the event this information is protected by the Federal Confidentiality of Alcohol and Drug Abuse Patient Records regulations: The Federal rules restrict any use of the information to criminally investigate or prosecute any alcohol or drug abuse patient.[facility] HospitalIn the event this information is protected by the Federal Confidentiality of Alcohol and Drug Abuse Patient Records regulations: The Federal rules restrict any use of the information to criminally investigate or prosecute any alcohol or drug abuse patient.[facility] HospitalIn the event this information is protected by the Federal Confidentiality of Alcohol and Drug Abuse Patient Records regulations: The Federal rules restrict any use of the information to criminally investigate or prosecute any alcohol or drug abuse patient.[facility] HospitalIn the event this information is protected by the Federal Confidentiality of Alcohol and Drug Abuse Patient Records regulations: The Federal rules restrict any use of the information to criminally investigate or prosecute any alcohol or drug abuse patient.[facility] HospitalIn the event this information is protected by the Federal Confidentiality of Alcohol and Drug Abuse Patient Records regulations: The Federal rules restrict any use of the information to criminally investigate or prosecute any alcohol or drug abuse patient.[facility] FOR RECORDS PERTAINING TO PATIENTS WHO [...] BE BASED ON THE PRIMARY CLINICAL RECORDS. [facility] provides no warranty or guarantee of the accuracy or completeness of information in this document.
--- OUTSIDE RECORDS SUMMARY | 2024-12-04 08:51 | XMS_ITS | CCD ---
Author Organization [facility] CliniSyri Care Team Providers Care 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 Name Role Phone Blayne Isabel Primary Care Provider [phone] SUZANNE DAVIES Attending Unavailable BLAYNE ISABEL Primary Care Unavailable ARSENIO BHATTI Referring Unavailable BLAYNE ISABEL Primary Care Unavailable ARSENIO BHATTI Referring Unavailable BLAYNE ISABEL Primary Care Unavailable ROSE SOTELO Attending Unavailable BLAYNE ISABEL Primary Care Unavailable BLAYNE ISABEL Consulting Unavailable Blayne Isabel Primary Care Provider [phone] Blayne Isabel Primary Care Provider [phone] Octavio Becker Attending Provider [phone] Blayne Isabel MD Primary Care Provider [phone] OCTAVIO MCCLELLAN Referring Unavailable BLAYNE ISABEL Primary Care Unavailable OCTAVIO MCCLELLAN Referring Unavailable BLAYNE ISABEL Primary Care Unavailable OCTAVIO MCCLELLAN Referring Unavailable BLAYNE ISABEL Primary Care Unavailable OCTAVIO MCCLELLAN Admitting Unavailable OCTAVIO MCCLELLAN Attending Unavailable BLAYNE ISABEL Primary Care Unavailable GAUSTIN FISCHER Consulting Unavailable LEISA PERRY Referring Unavailable BLAYNE ISABEL Primary Care Unavailable DORIE RUSH Consulting Unavailable SAI OWENS Attending Unavailable SAI OWENS Admitting Unavailable UNKNOWN, PHYSICIAN Referring Unavailable UNKNOWN, PHYSICIAN Primary Care Unavailable PAYTON HELM Attending Unavailable PAYTON HELM Admitting Unavailable Oumou Weinstein Unavailable STEPH oLwry Attending Provider [phone] Estephanie Lowry Unavailable STEPH Lowry Attending Provider NO FAMILY, PHYSICIAN Primary Care Provider Unava ilable DO Gianni Nelson Attending Provider [phone] Estephanie Lowry Admitting Unavailable Estephanie Lowry Attending [...] ., DR CISNEROS Attending Unavailable WEST, DR OBEI Swartz Consulting Unavailable JASPER SCHRADER Consulting Unavailable [...] HOY ., DR CISNEROS Primary Care Unavailable Blayen Isabel MD Primary Care Provider [phone] [facility] Attending Unavailable QUINCY THOMAS Admitting Unavailable HOY, BLAYNE M Primary Care Unavailable LULU OVIEDO Consulting UnavailBlayne Poole MD Primary Care Provider [phone] HOEdgar, BLAYNE M Primary Care Unavailable QUINCY, THOMAS Referring Unavailable MAITE GALLOWAY Referring Unavailable HOY, BLAYNE M Primary Care Unavailable HOY, BLAYNE M Primary Care Unavailable MAITE GALLOWAY Referring Unavailable Blayne Isabel MD Primary Care Provider [phone] AHSAN FLYNN Attending Unavailable HOY, BLAYNE M Referring Unavailable HOY, BLAYNE M Primary Care Unavailable AHSAN FLYNN Attending Unavailable HOY, BLAYNE M Referring Unavailable HOY, BLAYNE M Primary Care Unavailable AHSAN FLYNN Attending Unavailable HOY, BLAYNE M Referring Unavailable HOY, BLAYNE M Primary Care Unavailable Blayne Isabel MD Primary Care Provider [phone] PAYTON HELM Referring Unavailable PAYTON HELM Attending [...] Translations: [povidone iodine topical] Drug Allergy 9 [facility] (11 sources) Povidone-Iodine; Translations: [povidone-iodine] Drug Allergy 9 [facility] (9 sources) soap; Translations: [soap] Allergy to substance 9 [facility] (14 sources) Chlorhexidine; Translations: [CHLORHEXIDINE] Drug Allergy 1 [facility] (14 sources) Iodine; Translations: [IODINE] Drug Allergy 9 [facility] Work Phone: (16 sources) Loratadine; Translations: [loratadine] Drug Allergy 2 rash hives [facility] (1 source) Chlorhexidine Drug Allergy [facility] (1 source) Adhesive bandage Drug allergy Eruption of skin (disorder) [facility] (1 source) Povidone-Iodine; Translations: [Betadine] Drug Allergy [facility] Repository Medications Current Medications Medication Drug [...] carlos th every 4 hours as needed. [id number] 200 actuat albuterol 0.09 mg/actuat metered dose [...] Comment on above: Take 1 capsule by [facility] two times a day. doxazosin 4 mg [...] Active Start: 01-05-2021 take 1 capsule by [facility] every week vitamin D (ERGOCALCIFEROL) 1.25 MG (81394 UT) CAPS capsule Indications: Vitamin D deficiency [...] 1 Start: 03-19-[address] [facility] twice daily FeroSul 325 mg oral [...] Repeat number: [address] [facility] every twenty-four hours Irbesartan 150 MG [...] Comment on above: Take 1 capsule by [facility] twice daily. 2 ml ondansetron [...] 07, 2023 12:00am take 1 capsule by [facility] once daily in the morning [...] Repeat number: 1 take 2 tablets by [facility] in the morning pioglitazone (ACTOS) [...] every 7 days. On Mondays Active Dulaglutide (Vniicius licity) 0.75 MG/0.5ML Solution Pen-injector injection as [...] 2 Episodic Other aftercare (1 source) Other alf (current) drug therapy; Translations: [[facility] CURRENT [facility]ERAPY] Onset: 2 Episodic Other [...] Cecelia MURILLO MD Where: [facility] [address] [address]- You Need to Schedule the Following Appointments Follow Up with Cecelia MURILLO MD, URL When: Comments: as scheduled Where: [facility] [place] [address]- Medications What How Much When Instructions Unchanged [...] Sleep apnea (more content not included)... Normal [facility] Urology Office/Clinic Noteon 11-19-2024 Urology Office/Clinic Note [...] Contact Information Cecelia MURILLO MD, URL [address] [place] [address]- Additional Instructions: as scheduled Patient Education Kidney Stones, Idtr-qx-Bogh Problem List/Past Medical History Ongoing Acute diarrhea [...] stent (0 (more content not included)... Normal [facility] Comment on above: Result Comment: Elec [...] Cecelia MURILLO MD Where: [facility] [address] [address]- You Need to Schedule the Following Appointments Follow Up with Kaykay MURILLO MDrick R, URL When: Where: [address] [place], [place] [id number]- Medications What How Much When Instructions Unchanged [...] obstructio (more content not included)... Normal [facility] Urology Office/Clinic Noteon 08-07-2024 Urology Office/Clinic Note [...] Information LIDIA JACOBS, Cecelia Jj, URL [address] [place] [id number]- Additional Instructions: 1 year w/ KUB and [...] BMI 40.0- (more content not included)... Normal [facility] Comment on above: Result Comment: Elec tronically Signed By: Cecelia MURILLO MD\.br\Date and Time Signed: 08/07/24 12:00 EDT\.br\Electronically Co-Signed By: Jacqueline Calero\.br\Date and Time Co-Signed: 08/07/24 11:53 EDT\.br\Electronically Co-Signed By: Jacqueline Calero\.br\Date and Time Co-Signed: 08/07/24 11:56 EDT\.br\Electronically Co-Signed By: Jacqueline Calero\.br\Date and Time Co-Signed: 08/07/24 11:57 EDT [facility] Patient Letter [facility] June 22, 2024 SUKHDEEP SIMENTAL [address] [place] [address] : 1965 Dear Mr. Sukhdeep Simental, You [...] any future cancellations. Sincerely, [facility] [place] [id number] [phone] Normal [facility] Follow-Upon 06-17-2024 Follow-Up [id number] Sukhdeep Simental F 1965 M Date Provider Department Center 06/17/2024 PAYTON GRIFFITH [facility] Family History Problem Relation Age of Onset Dementia Mother Esophageal cancer Father Alcohol abuse Father Family Status - Relation Status Age at Mother Alive Father Level of Service:01369 MS OFFICE/OUTPATIENT ESTABLISHED SF MDM 10 MIN Normal [facility] 36on 05-18-2024 36 Will need to see the patient as soon as possible repeat x-rays and blood test to further evaluate as he has had previous infections and has high risk for recurrent infections and 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 PT WILL COME IN TODAY Normal [facility] BASIC METABOLIC PANELon -2 Anion gap [Moles/Vol] 12 mmol/L Normal - [facility] Comment on above: Performed By: #### L [id number] #### [facility] (BEAKER) [address] [place] [address] Calcium [Mass/Vol] 9.9 mg/dL Normal 8.6-10.3 [facility] Comment on above: Performed By: #### L [id number] #### [facility] [address] [place] [address] Chloride [Moles/Vol] 105 mmol/L Normal 98-107 [facility] Comment on above: Performed By: #### L [id number] #### [facility] ([facility]) [address] [place] [address] CO2 [Moles/Vol] 27 mmol/L Normal 21-31 [facility] Comment on above: Performed By: #### L [id number] #### [facility] [address] [place] [address] Creatinine [Mass/Vol] 1.42 mg/dL High 0.70-1.30 [facility] Comment on above: Performed By: #### L [id number] #### [facility] ([facility]) [address] [place] [address] GLOMERULAR FILTRATION RATE ML/MIN/1.73 SQ M.PREDICTED 56.6 mL/min/1.73m*2 Low >60.0 [facility] Comment on above: Result Comment: The [facility]???s estimated glomerular filtration rate (eGFR) will [...] individuals. Performed By: #### L [id number] #### [facility] ([facility] [address] [place] [address] Glucose [Mass/Vol] 102 mg/dL High 70-100 [facility] Comment on above: Performed By: #### L [id number] #### [facility] [address] [place] [address] Potassium [Moles/Vol] 4.4 mmol/L Normal 3.5-5.1 [facility] Comment on above: Performed By: #### L [id number] #### [facility] ([facility]) [address] [place] [address] Sodium [Moles/Vol] 140 mmol/L Normal 136-145 [facility] Comment on above: Performed By: #### L [id number] #### [facility] ([facility]) [address] [place] [address] Urea nitrogen [Mass/Vol] 23 mg/dL Normal 7-25 [facility] Comment on above: Performed By: #### L [id number] #### [facility] ([facility]) [address] [place] [address] UREA NITROGEN/CREATININE (MASS RATIO) IN SER/PLAS 16.2 Normal [facility] Comment on above: Performed By: #### L [id number] #### [facility] ([facility]) [address] [place] [address] C-REACTIVE PROTEINon 025 C REACTIVE PROTEIN (MG/L) IN SER/PLAS <5.4 Normal <=5.0 [facility] Comment on above: Result Comment: Test ing performed using a new methodology, turbidimetry. Normal ranges have been updated. Old normal range was <8 mg/L. Performed By: #### L [id number] #### [facility] ([facility]) [address] [place] [address] CBC WITH AUTO DIFFERENTIALon 05-18-2024 Basophils (Bld) [#/Vol] 0.06 10*3/uL Normal 0.00-0.20 [facility] Comment on above: Performed By: #### L [id number] #### [facility] ([facility]) [address] [place] [address] Basophils/100 WBC (Bld) 0.7 % Normal 0.0-1.0 [facility] Comment on above: Performed By: #### L [id number] #### [facility] (BEAKER) [address] [place] [address] Eosinophils (Bld) [#/Vol] 0.15 10*3/uL Normal 0.00-0.50 [facility] Comment on above: Performed By: #### L [id number] #### [facility] ([facility]) [address] [place] [address] Eosinophils/100 WBC (Bld) 1.8 % Normal 0.0-6.0 [facility] Comment on above: Performed By: #### L [id number] #### [facility] ([facility]) [address] [place] [address] Erythrocyte distribution width (RBC) [Ratio] 11.9 % Normal 11.5-15.0 [facility] Comment on above: Performed By: #### L [id number] #### [facility] ([facility]) [address] [address] ERYTHROCYTE MEAN CORPUSCULAR HEMOGLOBIN CONCENTRATION (G/DL) BY AUTOMATED 34.5 g/dL Normal 32.0-35.0 [facility] Comment on above: Performed By: #### L [id number] #### [facility] ([facility]) [address] [place] [address] Hematocrit (Bld) [Volume fraction] 47.8 % Normal 39.0-50.0 [facility] Comment on above: Performed By: #### L [id number] #### [facility] ([facility]) [address] [place] [address] Hemoglobin (Bld) [Mass/Vol] 16.5 g/dL Normal 13.0-17.0 [facility] Comment on above: Performed By: #### L [id number] #### [facility] ([facility]) [address] [place] [address] Immature granulocytes (Bld) [#/Vol] 0.03 10*3/uL Normal 0.00-0.20 [facility] Comment on above: Performed By: #### L [id number] #### [facility] ([facility]) [address] [place] [address] Immature granulocytes/100 WBC (Bld) 0.4 % Normal 0.0-1.0 [facility] Comment on above: Performed By: #### L [id number] #### [facility] ([facility]) [address] [place] [address] Lymphocytes (Bld) [#/Vol] 1.80 10*3/uL Normal 1.20-4.00 [facility] Comment on above: Performed By: #### L [id number] #### [facility] ([facility]) [address] [place] [address] Lymphocytes/100 WBC (Bld) 21.8 % Normal 20.0-45.0 [facility] Comment on above: Performed By: #### L [id number] #### [facility] ([facility]) [address] [place] [address] MCH (RBC) [Entitic mass] 31.5 pg Normal 27.0-33.0 [facility] Comment on above: Performed By: #### L [id number] #### [facility] ([facility]) [address] [place] [address] MCV (RBC) [Entitic vol] 91.4 fL Normal 82.0-98.0 [facility] Comment on above: Performed By: #### L [id number] #### [facility] ([facility]) [address] [place] [address] Monocytes (Bld) [#/Vol] 0.66 10*3/uL Normal 0.10-1.00 [facility] Comment on above: Performed By: #### L [id number] #### [facility] ([facility]) [address] [place] [address] Monocytes/100 WBC (Bld) 8.0 % Normal 5.0-12.0 [facility] Comment on above: Performed By: #### L [id number] #### [facility] ([facility]) [address] [place] [address] Neutrophils (Bld) [#/Vol] 5.56 10*3/uL Normal 1.60-7.60 [facility] Comment on above: Performed By: #### L [id number] #### [facility] ([facility]) [address] [place] [address] Neutrophils/100 WBC (Bld) 67.3 % Normal 40.0-72.0 [facility] Comment on above: Performed By: #### L [id number] #### [facility] ([facility]) [address] [address] NRBC (PER 100 WBCS) BY AUTOMATED COUNT 0.0 % Normal 0 [facility] Comment on above: Performed By: #### L [id number] #### [facility] ([facility]) [address] [place] [address] PLATELETS (10*3/UL) IN BLOOD AUTOMATED COUNT 247 10*3/uL Normal 150-400 [facility] Comment on above: Performed By: #### L [id number] #### [facility] ([facility]) [address] [place] [address] RBC (Bld) [#/Vol] 5.23 10*6/uL Normal 4.20-5.70 [facility] Comment on above: Performed By: #### L [id number] #### [facility] ([facility]) [address] [place] [address] WBC (Bld) [#/Vol] 8.26 10*3/uL Normal 4.00-10.60 [facility] Comment on above: Performed By: #### L [id number] #### [facility] ([facility]) [address] [place] [address] Follow-Upon 05-18-2024 Follow-Up [id number] Sukhdeep Simental 1965 M Date Provider Department Center 05/18/2024 PAYTON GRIFFITH [facility] MPORTHO Family History Problem Relation Age of Onset Dementia Mother Esophageal cancer Father Alcohol abuse Father Family Status - Relation Status Age at Mother Alive Father Level of Service:66584 MS OFFICE/OUTPATIENT ESTABLISHED MOD MDM 30 MIN () Reason for Visit and Comments: Pain [136] - Swelling starts 2 months ago, started swimming about a month ago and it only made his knee worse Edema [[id number]] - Swelling starts 2 months ago, started swimming about a month ago and it only made his knee worse Normal [facility] Labon 05-18-2024 Lab [id number] Sukhdeep Simental 1965 M Date Provider Department Center 05/18/20244-[facility] MP LAB RESOURCE MP DRAW Medical Pavi Family History Problem Relation Age of Onset Dementia Mother Esophageal cancer Father Alcohol abuse Father Family Status - Relation Status Age at Mother Alive Father Normal [facility] SEDIMENTATION RATEon 025 SEDIMENTATION RATE, ERYTHROCYTE 5 mm/hr Normal <20 [facility] Comment on above: Performed By: #### L [id number] #### [facility] (BEAKER) [address] [place] [address] 36on 05-15-2024 36 Patient feels like h is infection is back. Right knee swelling and pain but no fever. He was seen by Dr. Isabel and he put him on oral antibiotics and wanted Dr. Helm know in case he wants him to come in and be exam. Normal [facility] Erythrocyte distribution wid th Auto (RBC) [Ratio]on 10-29-2023 Erythrocyte distribution width (RBC) [Ratio] 11.5 % 11.0-15.0 [facility] Estimated glomerular filtrat ion rate (GFR) non- Americanon 10-29-2023 GFR/1.73 sq M.predicted among non-blacks MDRD (S/P/Bld) [Vol rate/Area] 51 mL/min/{1.73_m2} Low >=60 [facility] Hematocrit Auto (Bld) [Volum e fraction]on 10-29-2023 Hematocrit (Bld) [Volume fraction] 47.7 % 42.0-54.0 [facility] Hemoglobin [Mass/volume] in Bloodon 10-29-2023 Hemoglobin (Bld) [Mass/Vol] 16.8 g/dL 14.0-18.0 [facility] Laboratory - Chemistry and C hemistry - challengeon 10-29-2023 Albumin [Mass/Vol] 3.7 g/dL 3.4-5.0 [facility] Calcium [Mass/Vol] 9.0 mg/dL 8.5-10.1 [facility] Chloride [Moles/Vol] 103 mmol/L 98-[address] [facility] CO2 [Moles/Vol] 26.8 mmol/L 21.0-32.0 [facility] Creatinine [Mass/Vol] 1.41 mg/dL High 0.70-1.30 [facility] GFR/1.73 sq M.predicted MDRD (S/P/Bld) [Vol rate/Area] mL/min/{1.73_m2} >=60 [facility] Glucose [Mass/Vol] 167 mg/dL High 74-106 [facility] Magnesium [Mass/Vol] 1.9 mg/dL 1.8-2.[address] [facility] Potassium [Moles/Vol] 3.9 mmol/L 3.5-5.1 [facility] Sodium [Moles/Vol] 141 mmol/L 136-145 [facility] Urate [Mass/Vol] 7.9 mg/dL High 3.5-7.2 [facility] Urea nitrogen [Mass/Vol] 26.0 mg/dL High 7.0-18.0 [facility] Urea nitrogen/Creatinine [Mass ratio] 18.4 mg/mg [facility] Bilirubin Ql (U) Negative NEGATIVE [facility] Glucose (U) [Mass/Vol] Negative NEGATIVE [facility] Ketones Ql (U) Negative NEGATIVE [facility] pH (U) 6.0 [pH] 5.0-9.0 [facility] Specific gravity (U) [Rel density] 1.015 1.005-1.025 [facility] Urobilinogen Qn (U) 0.2 {Dahiana'U}/dL 0.2-1.0 [facility] Laboratory - Specimen inform ationon 10-29-2023 Appearance (U) CLEAR CLEAR [facility] Color (U) LT. YELLOW YELLOW [facility] Laboratory - Urinalysison Hyaline casts LM Ql (Urine sed) RARE [facility] Leukocyte esterase Test strip Ql (U) Negative NEGATIVE [facility] Mucus Ql (Urine sed) NONE SEEN NONE SEEN [facility] Nitrite Ql (U) Negative NEGATIVE [facility] Protein Ql (U) Negative NEG/TRACE [facility] Leukocytes [#/volume] correc romaine for nucleated erythrocytes in Blood by Automated counon 10-29-2023 WBC corrected for nucl RBC Auto (Bld) [#/Vol] 6.9 10 3/uL 4.0-11.0 [facility] MCH Auto (RBC) [Entitic mass ]on 10-29-2023 MCH (RBC) [Entitic mass] 32.2 pg 25.9-34.0 [facility] MCHC Auto (RBC) [Mass/Vol]on 10-29-2023 MCHC (RBC) [Mass/Vol] 35.2 g/dL 29.9-35.2 [facility] MCV Auto (RBC) [Entitic vol] on 10-29-2023 MCV (RBC) [Entitic vol] 91.6 fL 80.0-94.0 [facility] No Panel Informationon 10-28 25-Hydroxy Vitamin D Total 40.8 ng/mL [facility] Comment on above: <20 ng/mL Vit D defi cient20-<30 ng/mL Vit D -721 ng/mL Vit D sufficient>100 ng/mL Potential Toxicity Parathyroid Hormone (Intact) 91 pg/mL Abnormal 15-65 [facility] Comment on above: Performed at: [facility] [employer] [address] [id number] Director: Logan Martinez PhD, Phone: [phone] Phosphorus Level 2.3 mg/dL Low 2.6-4.7 [facility] Urine Bacteria NONE SEEN #/HPF NONE SEEN [facility] Urine Occult Blood Negative NEGATIVE [facility] Urine Other Casts SEEN #/LPF Abnormal NONE SEEN [facility] Urine Random Creatinine 15.18 mg/dL Low 20.00-300.00 [facility] Urine Random Total Protein <6.0 mg/dL <=11.9 [facility] Urine RBC NONE SEEN #/HPF 0-2 [facility] Urine Squamous Epithelial Cells FEW #/LPF Abnormal NONE/RARE [facility] Urine WBC NONE SEEN #/HPF NONE SEEN [facility] Platelet mean volume Auto (B ld) [Entitic vol]on 10-29-2023 Platelet mean volume (Bld) [Entitic vol] 8.9 fL Low 9.5-13.5 [facility] Platelets Auto (Bld) [#/Vol] on 10-29-2023 Platelets (Bld) [#/Vol] 236 10 3/uL 150-450 [facility] RBC Auto (Bld) [#/Vol]on RBC (Bld) [#/Vol] 5.21 10 6/uL 4.70-6.10 [facility] Serum or plasma anion gap de terminationon 10-29-2023 Anion gap [Moles/Vol] 15.1 mmol/L [facility] [facility] CNPNon 10-07-2023 CNPN Telephone (NEADFV) SUKHDEEP SIMENTAL ([id number]) 1965 M Date Time Provider Department 10/07/23 THOMAS AMTHEW NEFV During your visit today, we recorded [...] Encounter Status:Closed by ARIANNA MUHAMMAD [facility] SUKHDEEP SIMENTAL ([id number]) 1965 M Date Time Provider Department 10/04/23 [...] Status:Closed by JUAN PABLO NOVA on 10/04/23 [facility] 07-30-2023 CNPN Telephone (NEADFV) SUKHDEEP SIMENTAL ([id number]) 1965 M Date Time Provider Department 07/30/23 THOMAS MATHEW [facility] During your visit today, we recorded the following information about you: Arianna Little 07/30/2023 11:51 AM Signed Pt phoned regarding upcoming visit 10/06 [employer] appt. Pt unable to manage virtual visit asking for telephone visit. Pt asking how far in advance to do X-Ray. Pt will have X-Ray done locally at [place]. Please call and advise Pt phone # [phone] Ekaterina Rondon 07/30/2023 1:07 PM Signed Have sent XR Lumbar order to [place] fax # [phone] as requested from patient. Riddhi Goss APRN.PROVIDENCE [...] Encounter Status:Closed by RIDDHI GOSS on 07/30/23 [facility] [place] 07-23-2023 CNPN Telephone (NIQ) SUKHDEEP SIMENTAL ([id number]) 1965 M Date Time Provider Department 07/23/23 THOMAS MATHEW During your visit today, we recorded the following information about you: Brenda Alex 07/23/2023 9:38 AM Signed Received request from [employer] needing more info, in [employer] for review. Juan Pablo Nova RN 07/23/2023 [...] Status:Closed by JUAN PABLO NOVA on 07/26/23 [facility] [place] 04-16-2023 CNPN Telephone (NIQ) SUKHDEEP SIMENTAL ([id number]) 1965 M Date Time Provider Department 04/16/23 THOMAS MATHEW During your visit today, we recorded the following information about you: Moriah Ferguson 04/16/2023 1:27 PM Signed Received imaging disc by mail from [facility]. Disc contains CT Lumbar spine done [...] Encounter Status:Closed by MORIAH FERGUSON on 06/06/23 [facility] [place] 04-10-2023 HARIKA Telephone (NIQ) SUKHDEEP SIMENTAL ([id number]) 1965 M Date Time Provider Department 04/10/23 [...] Status:Closed by JUAN PABLO NOVA on 04/18/23 [facility] [place] 04-09-2023 [facility] Telephone (NIQ) SUKHDEEP SIMENTAL ([id number]) 1965 M Date Time Provider Department 04/09/23 THOMAS MATHEW During your visit today, we recorded the following information about you: Brenda Alex 04/09/2023 10:[address] Lumbar Spine Report from [facility], in epic to review. Brittany Rubio [...] Encounter Status:Closed by ROBSON LAZO on 04/09/23 [facility] Telephone (NIQ) SUKHDEEP SIMENTAL ([id number]) 1965 M Date Time Provider Department 02/11/23 THOMAS MATHEW During your visit today, we recorded the following information about you: Moriah Ferguson 02/11/2023 1:36 PM Signed [facility] C-[facility], and [employer] 14. See fax scanned in patient's chart. Juan Pablo Nova RN 02/13/2023 3:14 PM Signed Information faxed to number requested. Faxed verification received. Robson De Jesus 03/06/2023 3:20 PM Signed Received updated notes from [facility] dated 03/05/23. Scanned into [place]. Allergies As of Date: 02/11/2023 (No Known Allergies) Date Reviewed: 02/07/2023 Reviewed by: Brittany Ratliff - Fully Assessed Reason for Visit: [facility] (Worker's Comp) [4136] Prescriptions as of 03/07/2023 [...] Status:Closed by JUAN PABLO NOVA on 02/13/23 [facility] Telephone (NIQ) SUKHDEEP SIMENTAL ([id number]) 1965 M Date Time Provider Department 12/21/22 THOMAS MATHEW During your visit today, we recorded the following information about you: Moriah Ferguson 12/21/2022 9:29 AM Signed Patient called with complaints of [facility] not allowing him to picker packer the pain medication that was sent yesterday. [...] Encounter Status:Closed by XI SCHRADER on 12/21/22 [facility] [place] 12-18-2022 CNPN Telephone (PODCCP) SUKHDEEP SIMENTAL ([id number]) 1965 [place] Date Time Provider Department 12/18/22 BLAYNE ISABEL PODCCP During your visit today, we recorded the following information about you: Amaury Carreon 12/18/2022 1:52 PM Signed PATIENT INFORMATION Record ID: [id number] Patient Name: [facility]: [facility]: [facility] Attending: Thomas Mathew Center: [facility] INSTRUCTIONS SN to remind patient of next upcoming appointment date, time, location SN TRANSFER TO [facility] SURVEY INFORMATION Medical/Nurse Weatherization Crew Leader: Amaury Calderón 1. Your discharge instructions are [...] Reason for Visit: Follow Up Phone Call [9548] Cmt: All Clear Prescriptions as of 12/18/2022 [...] Encounter Status:Closed by AMAURY CARREON on 12/18/22 [facility] [place] 12-14-2022 [facility] Telephone (NIQ) SUKHDEEP SIMENTAL ([id number]) 1965 M Date Time Provider Department 12/14/22 THOMAS MATHEW [facility] During your visit today, we recorded [...] via voice mail, as requested. Scanned into [employer]. Allergies As of Date: 12/14/2022 (No Known Allergies) Date Reviewed: 12/10/2022 Reviewed by: Yoli Guerin, RN - Fully Assessed Reason for Visit: FMLA Paperwork [4183] Prescriptions as of 12/17/2022 - docusate sodium [...] Status:Closed by ABBY HERNANDEZ on 12/17/22 Normal [facility] Basic metabolic 2000 panelon 12-11-2022 Anion gap [Moles/Vol] 8 mmol/L Low 9-18 [facility] Comment on above: Order Comment: Speci men Type: BLOOD SPECIMEN Ordering Facility: [facility] Address: [address] [place] [address] Performed By: #### 2 4321-2 #### [facility] CLIA [id number] [address] [place] [address] [place] Calcium [Mass/Vol] 8.7 mg/dL Normal 8.5-10.2 [facility] Comment on above: Order Comment: Speci men Type: BLOOD SPECIMEN Ordering Facility: [facility] Address: [address] [place] [address] Performed By: #### 2 4321-2 #### [facility] CLIA [id number] [address] [place] [address] [place] Chloride [Moles/Vol] 106 mmol/L High 97-105 [facility] Comment on above: Order Comment: Speci men Type: BLOOD SPECIMEN Ordering Facility: [facility] Address: [address] [place] [address] Performed By: #### 2 4321-2 #### [facility] CLIA [id number] [address] [place], [place] [address] [place] CO2 [Moles/Vol] 29 mmol/L Normal 22-30 [facility] Comment on above: Order Comment: Speci men Type: BLOOD SPECIMEN Ordering Facility: [facility] Address: [address] [place] [address] Performed By: #### 2 4321-2 #### [facility] CLIA [id number] [address] [place] [address] [place] Creatinine [Mass/Vol] 1.17 mg/dL Normal 0.73-1.22 [facility] Comment on above: Order Comment: Speci men Type: BLOOD SPECIMEN Ordering Facility: [facility] Address: [address] [place] [address] Performed By: #### 2 4321-2 #### [facility] CLIA [id number] [address] [place], [place] [address] [place] Creatinine and Glomerular filtration rate.predicted panel (S/P/Bld) 72 mL/min/1.73m??? Normal >=60 [facility] Comment on above: Order Comment: Shahrzad dumont Type: BLOOD SPECIMEN Ordering Facility: [facility] Address: [place] [address] Result Comment: Leah mated Glomerular Filtration Rate [...] #### 2 4321-2 #### [facility] IA [id number] [address] [place] [address] [place] Glucose [Mass/Vol] 98 mg/dL Normal 74-99 [facility] Comment on above: Order Comment: Shahrzad dumont Type: BLOOD SPECIMEN Ordering Facility: [facility] Address: [place] [address] Result Comment: The [place] Diabetes Association (ADA) provides guidance for cutoff [...] Standards of Medical Care in Diabetes 2016, [place] [employer]. Diabetes Care. 2016.39(Suppl 1). Performed By: #### 2 4321-2 #### [facility] IA [id number] [address] [place], [place] [address] [place] Potassium [Moles/Vol] 4.8 mmol/L Normal 3.7-5.1 [facility] Comment on above: Order Comment: Speci men Type: BLOOD SPECIMEN Ordering Facility: [facility] Address: [address] [place] [address] Performed By: #### 2 4321-2 #### [facility] CLIA [id number] [address] [place] [address] [place] Sodium [Moles/Vol] 143 mmol/L Normal 136-144 [facility] Comment on above: Order Comment: Speci men Type: BLOOD SPECIMEN Ordering Facility: [facility] Address: [address] [place] [address] Performed By: #### 2 4321-2 #### [facility] CLIA [id number] [address] [place] [address] [place] Urea nitrogen [Mass/Vol] 13 mg/dL Normal 9-24 [facility] Comment on above: Order Comment: Speci men Type: BLOOD SPECIMEN Ordering Facility: [facility] Address: [address] [place] [address] Performed By: #### 2 4321-2 #### [facility] CLIA [id number] [address] [place] [address] OF ARELY CASE MANAGEMon 12-11-2022 CASE MANAGEM HNO ID: [id number] Author: Gloria Toro RN Service: ? Author Type: Registered Nurse Type: Care Mgt Progress Note Filed: 12/11/2022 3:26 PM Note Text: CARE MANAGEMENT PROGRESS NOTE SERVICE DATE: 12/11/2022 SERVICE TIME: 3:26 pm LOS: 4 days No further skilled PT / OT needed at [place]. SIGNATURE: Gloria Toro RN PATIENT NAME: Sukhdeep Simental DATE: December 11, 2022 TIME: 3:25 PM PAGER/CONTACT #: [phone] Normal [facility] CBC panel Auto (Bld)on 12-11 Erythrocyte distribution width (RBC) [Ratio] 12.5 % Normal 11.5-15.0 [facility] Comment on above: Order Comment: Speci men Type: BLOOD SPECIMEN Ordering Facility: [facility] Address: [address] [place] [address] Performed By: #### 5 8410-2 #### [facility] CLIA [id number] [address] [place] [address] [place] Hematocrit (Bld) [Volume fraction] 34.6 % Low 39.0-51.0 [facility] Comment on above: Order Comment: Speci men Type: BLOOD SPECIMEN Ordering Facility: [facility] Address: [address] [place] [address] Performed By: #### 5 8410-2 #### [facility] IA [id number] [address] [place] [address] [place] Hemoglobin (Bld) [Mass/Vol] 11.7 g/dL Low 13.0-17.0 [facility] Comment on above: Order Comment: Speci men Type: BLOOD SPECIMEN Ordering Facility: [facility] Address: [address] [place] [address] Performed By: #### 5 8410-2 #### [facility] IA [id number] [address] [place] [address] [place] MCH (RBC) [Entitic mass] 32.0 pg Normal 26.0-34.0 [facility] Comment on above: Order Comment: Speci men Type: BLOOD SPECIMEN Ordering Facility: [facility] Address: [address] [place] [address] Performed By: #### 5 8410-2 #### [facility] IA [id number] [address] [place] [address] [place] MCHC (RBC) [Mass/Vol] 33.8 g/dL Normal 30.5-36.0 [facility] Comment on above: Order Comment: Speci men Type: BLOOD SPECIMEN Ordering Facility: [facility] Address: [address] [place] [address] Performed By: #### 5 8410-2 #### [facility] CLIA [id number] [address] [place] [address] [place] MCV (RBC) [Entitic vol] 94.5 fL Normal 80.0-100.0 [facility] Comment on above: Order Comment: Speci men Type: BLOOD SPECIMEN Ordering Facility: [facility] Address: [address] [place] [address] Performed By: #### 5 8410-2 #### [facility] CLIA [id number] [address] [place] [address] [place] Nucleated RBC (Bld) [#/Vol] 10*3/uL Normal <0.01 [facility] Comment on above: Order Comment: Speci men Type: BLOOD SPECIMEN Ordering Facility: [facility] Address: [address] [place] [address] Performed By: #### 5 8410-2 #### [facility] CLIA [id number] [address] [place] [address] [place] Platelet mean volume (Bld) [Entitic vol] 9.4 fL Normal 9.0-12.7 [facility] Comment on above: Order Comment: Speci men Type: BLOOD SPECIMEN Ordering Facility: [facility] Address: [address] [place] [address] Performed By: #### 5 8410-2 #### [facility] CLIA [id number] [address] [place] [address] [place] Platelets (Bld) [#/Vol] 196 10*3/uL Normal 150-400 [facility] Comment on above: Order Comment: Speci men Type: BLOOD SPECIMEN Ordering Facility: [facility] Address: [address] [place] [address] Performed By: #### 5 8410-2 #### [facility] CLIA [id number] [address] [place] [address] [place] RBC (Bld) [#/Vol] 3.66 10*6/uL Low 4.20-6.00 [facility] Comment on above: Order Comment: Speci men Type: BLOOD SPECIMEN Ordering Facility: [facility] Address: [address] [place] [address] Performed By: #### 5 8410-2 #### [facility] CLIA [id number] [address] [place] [address] [place] WBC (Bld) [#/Vol] 9.04 10*3/uL Normal 3.70-11.00 [facility] Comment on above: Order Comment: Shahrzad dumont Type: BLOOD SPECIMEN Ordering Facility: [facility] Address: [place] [id number] Performed By: #### 5 8410-2 #### [facility] CLIA [id number] [address] [place] [address] [place] CNDSon 12-11-2022 CNDS HNO ID: [id number] Author: Brittany Rubio PA-C Service: Neurosurgery Author Type: Physician Weatherization Crew Leader Type: Discharge Summary Filed: 12/11/2022 10:38 AM [...] you become constipated, you may use any ckre-mki-dtkcbcw treatment such as Milk of Magnesia, Sennakot, Prune Juice, Suppositories, etc. in addition to the stool softener/fiber supplement No alcohol or driving while on pain medication Use the dispensed medication (see prescription) You should use an xlqn-tnp-amwkzdy stool softener (Docusate sodium) and/or a fiber [...] call for appointment?: (more content not included)... 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 [facility] NURSING PROGon 12-11-2022 NURSING PROG HNO ID: [id number] Author: Erlinda Bui RN Service: Nursing Author [...] information. Patient verbalizing understanding of instructions. Normal [facility] Basic metabolic 2000 panelon 12-10-2022 Anion gap [Moles/Vol] 7 mmol/L Low - [facility] Comment on above: Order Comment: Speci men Type: BLOOD SPECIMEN Ordering Facility: [facility] Address: [address] [place] [address] Performed By: #### 2 4321-2 #### [facility] CLIA [id number] [address] [place] [address] [place] Calcium [Mass/Vol] 8.3 mg/dL Low 8.5-10.2 [facility] Comment on above: Order Comment: Speci men Type: BLOOD SPECIMEN Ordering Facility: [facility] Address: [address] [place] [address] Performed By: #### 2 4321-2 #### [facility] CLIA [id number] [address] [place] [address] [place] Chloride [Moles/Vol] 107 mmol/L High 97-105 [facility] Comment on above: Order Comment: Speci men Type: BLOOD SPECIMEN Ordering Facility: [facility] Address: [address] [place] [address] Performed By: #### 2 4321-2 #### [facility] CLIA [id number] [address] [place] [id number] [place] CO2 [Moles/Vol] 26 mmol/L Normal 22-30 [facility] Comment on above: Order Comment: Speci men Type: BLOOD SPECIMEN Ordering Facility: [facility] Address: [address] [place] [address] Performed By: #### 2 4321-2 #### [facility] CLIA [id number] [address] [place] [address] [place] Creatinine [Mass/Vol] 1.16 mg/dL Normal 0.73-1.22 [facility] Comment on above: Order Comment: Shahrzad dumont Type: BLOOD SPECIMEN Ordering Facility: [facility] Address: [address] [place] [address] Performed By: #### 2 4321-2 #### [facility] CLIA [id number] [address] [place] [address] [place] Creatinine and Glomerular filtration rate.predicted panel (S/P/Bld) 73 mL/min/1.73m??? Normal >=60 [facility] Comment on above: Order Comment: Shahrzad dumont Type: BLOOD SPECIMEN Ordering Facility: [facility] Address: [address] [place] [address] Result Comment: Leah mated Glomerular Filtration Rate [...] #### 2 4321-2 #### [facility] CLIA [id number] [address] [place] [address] [place] Glucose [Mass/Vol] 129 mg/dL High 74-99 [facility] Comment on above: Order Comment: Shahrzad dumont Type: BLOOD SPECIMEN Ordering Facility: [facility] Address: [address] [place] [address] Result Comment: The [place] Diabetes Association (ADA) provides guidance for cutoff [...] Standards of Medical Care in Diabetes 2016, [place] [employer]. Diabetes Care. 2016.39(Suppl 1). Performed By: #### 2 4321-2 #### [facility] CLIA [id number] [address] [place] [address] [place] Potassium [Moles/Vol] 4.3 mmol/L Normal 3.7-5.1 [facility] Comment on above: Order Comment: Speci men Type: BLOOD SPECIMEN Ordering Facility: [facility] Address: [address] [place] [address] Performed By: #### 2 4321-2 #### [facility] CLIA [id number] [address] [place] [address] [place] Sodium [Moles/Vol] 140 mmol/L Normal 136-144 [facility] Comment on above: Order Comment: Shahrzad dumont Type: BLOOD SPECIMEN Ordering Facility: [facility] Address: [address] [place] [address] Performed By: #### 2 4321-2 #### [facility] CLIA [id number] [address] [place] [address] [place] Urea nitrogen [Mass/Vol] 16 mg/dL Normal 9-24 [facility] Comment on above: Order Comment: Toneyi tim Type: BLOOD SPECIMEN Ordering Facility: [facility] Address: [address] [place] [address] Performed By: #### 2 4321-2 #### [facility] CLIA [id number] [address] [place] [address] [place] CBC panel Auto (Bld)on 12-10 Erythrocyte distribution width (RBC) [Ratio] 12.6 % Normal 11.5-15.0 [facility] Comment on above: Order Comment: Toneyi men Type: BLOOD SPECIMEN Ordering Facility: [facility] Address: [address] [place] [address] Performed By: #### 5 8410-2 #### [facility] CLIA [id number] [address] [place] [address] [place] Hematocrit (Bld) [Volume fraction] 32.7 % Low 39.0-51.0 [facility] Comment on above: Order Comment: Speci men Type: BLOOD SPECIMEN Ordering Facility: [facility] Address: [address] [place] [address] Performed By: #### 5 8410-2 #### [facility] CLIA [id number] [address] [place] [address] [place] Hemoglobin (Bld) [Mass/Vol] 10.9 g/dL Low 13.0-17.0 [facility] Comment on above: Order Comment: Speci men Type: BLOOD SPECIMEN Ordering Facility: [facility] Address: [address] [place] [address] Performed By: #### 5 8410-2 #### [facility] CLIA [id number] [address] [place] [address] [place] MCH (RBC) [Entitic mass] 31.5 pg Normal 26.0-34.0 [facility] Comment on above: Order Comment: Speci men Type: BLOOD SPECIMEN Ordering Facility: [facility] Address: [address] [place] [address] Performed By: #### 5 8410-2 #### [facility] CLIA [id number] [address] [place] [address] [place] MCHC (RBC) [Mass/Vol] 33.3 g/dL Normal 30.5-36.0 [facility] Comment on above: Order Comment: Speci men Type: BLOOD SPECIMEN Ordering Facility: [facility] Address: [address] [place] [address] Performed By: #### 5 8410-2 #### [facility] CLIA [id number] [address] [place] [address] [place] MCV (RBC) [Entitic vol] 94.5 fL Normal 80.0-100.0 [facility] Comment on above: Order Comment: Speci men Type: BLOOD SPECIMEN Ordering Facility: [facility] Address: [address] [place] [address] Performed By: #### 5 8410-2 #### [facility] CLIA [id number] [address] [place], [place] [address] [place] Nucleated RBC (Bld) [#/Vol] 10*3/uL Normal <0.01 [facility] Comment on above: Order Comment: Speci men Type: BLOOD SPECIMEN Ordering Facility: [facility] Address: [address] [place] [address] Performed By: #### 5 8410-2 #### [facility] CLIA [id number] [address] [place] [address] [place] Platelet mean volume (Bld) [Entitic vol] 9.6 fL Normal 9.0-12.7 [facility] Comment on above: Order Comment: Speci men Type: BLOOD SPECIMEN Ordering Facility: [facility] Address: [address] [place] [address] Performed By: #### 5 8410-2 #### [facility] CLIA [id number] [address] [place] [address] [place] Platelets (Bld) [#/Vol] 157 10*3/uL Normal 150-400 [facility] Comment on above: Order Comment: Speci men Type: BLOOD SPECIMEN Ordering Facility: [facility] Address: [address] [place] [address] Performed By: #### 5 8410-2 #### [facility] CLIA [id number] [address] [place] [address] [place] RBC (Bld) [#/Vol] 3.46 10*6/uL Low 4.20-6.00 [facility] Comment on above: Order Comment: Speci men Type: BLOOD SPECIMEN Ordering Facility: [facility] Address: [address] [place] [address] Performed By: #### 5 8410-2 #### [facility] CLIA [id number] [address] [place] [address] [place] WBC (Bld) [#/Vol] 8.16 10*3/uL Normal 3.70-11.00 [facility] Comment on above: Order Comment: Speci men Type: BLOOD SPECIMEN Ordering Facility: [facility] Address: [address] [place] [address] Performed By: #### 5 8410-2 #### [facility] CLIA [id number] [address] [place], [place] [address] [facility] THERAPY NTon 12-10-2022 THERAPY NT HNO ID: [id number] Author: Odilon Madrid PT Service: Physical Therapy Author Type: Physical Therapist Type: Therapy (PT/OT/Speech/Resp) Filed: 12/10/2022 11:20 AM Note Text: PHYSICAL THERAPY MISSED VISIT SERVICE DATE: 12/10/2022 SERVICE TIME: 1109 to 1111 ROOM: [place] [address] Patient not seen due to Refused Treatment. Pt reported pain levels are too high to attempt therapy. Will f/u as schedule allows and pain improves. SIGNATURE: Odilon Madrid PT PATIENT NAME: Sukhdeep Simental DATE: December 10, 2022 TIME: 11:20 AM [facility] ALLIED HEALTHon 12-09-2022 ALLIED HEALTH HNO ID: [id number] Author: Akila Huitron RT(R) Service: Radiology Author [...] RT Jose(R) December 09, 2022 2:01 PM [facility] Basic metabolic 2000 panelon 12-09-2022 Anion gap [Moles/Vol] 6 mmol/L Low -18 [facility] Comment on above: Order Comment: Speci men Type: BLOOD SPECIMEN Ordering Facility: [facility] Address: [address] [place] [address] Performed By: #### 2 4321-2 #### [facility] CLIA [id number] [address] [place], [place] [address] [place] Calcium [Mass/Vol] 8.5 mg/dL Normal 8.5-10.2 [facility] Comment on above: Order Comment: Speci men Type: BLOOD SPECIMEN Ordering Facility: [facility] Address: [address] [place] [address] Performed By: #### 2 4321-2 #### [facility] CLIA [id number] [address] [place] [address] [place] Chloride [Moles/Vol] 106 mmol/L High 97-105 [facility] Comment on above: Order Comment: Speci men Type: BLOOD SPECIMEN Ordering Facility: [facility] Address: [address] [place] [address] Performed By: #### 2 4321-2 #### [facility] CLIA [id number] [address] [place] [address] [place] CO2 [Moles/Vol] 30 mmol/L Normal 22-30 [facility] Comment on above: Order Comment: Speci men Type: BLOOD SPECIMEN Ordering Facility: [facility] Address: [address] [place] [address] Performed By: #### 2 4321-2 #### [facility] CLIA [id number] [address] [place] [address] [place] Creatinine [Mass/Vol] 1.34 mg/dL High 0.73-1.22 [facility] Comment on above: Order Comment: Speci men Type: BLOOD SPECIMEN Ordering Facility: [facility] Address: [address] [place] [address] Performed By: #### 2 4321-2 #### [facility] CLIA [id number] [address] [place] [address] [place] Creatinine and Glomerular filtration rate.predicted panel (S/P/Bld) 61 mL/min/1.73m??? Normal >=60 [facility] Comment on above: Order Comment: Shahrzad dumont Type: BLOOD SPECIMEN Ordering Facility: [facility] Address: [address] [place] [address] Result Comment: Leah mated Glomerular Filtration Rate [...] GFR. Performed By: #### 2 4321-2 #### [facility] CLIA [id number] [address] [place] [address] [place] Glucose [Mass/Vol] 105 mg/dL High 74-99 [facility] Comment on above: Order Comment: Shahrzad dumont Type: BLOOD SPECIMEN Ordering Facility: [facility] Address: [address] [place] [address] Result Comment: The [place] Diabetes Association (ADA) provides guidance for cutoff [...] Standards of Medical Care in Diabetes 2016, [place] [employer]. Diabetes Care. 2016.39(Suppl 1). Performed By: #### 2 4321-2 #### [facility] CLIA [id number] [address] [place] [address] [place] Potassium [Moles/Vol] 3.9 mmol/L Normal 3.7-5.1 [facility] Comment on above: Order Comment: Shahrzad dumont Type: BLOOD SPECIMEN Ordering Facility: [facility] Address: [address] [place] [address] Performed By: #### 2 4321-2 #### [facility] CLIA [id number] [address] [place] [address] [place] Sodium [Moles/Vol] 142 mmol/L Normal 136-144 [facility] Comment on above: Order Comment: Speci men Type: BLOOD SPECIMEN Ordering Facility: [facility] Address: [address] [place] [address] Performed By: #### 2 4321-2 #### [facility] IA [id number] [address] [place] [address] [place] Urea nitrogen [Mass/Vol] 18 mg/dL Normal 9-24 [facility] Comment on above: Order Comment: Speci men Type: BLOOD SPECIMEN Ordering Facility: [facility] Address: [address] [place] [address] Performed By: #### 2 4321-2 #### [facility] IA [id number] [address] [place] [address] [place] CBC panel Auto (Bld)on 12-09 Erythrocyte distribution width (RBC) [Ratio] 12.7 % Normal 11.5-15.0 [facility] Comment on above: Order Comment: Speci men Type: BLOOD SPECIMEN Ordering Facility: [facility] Address: [address] [place] [address] Performed By: #### 5 8410-2 #### [facility] IA [id number] [address] [place] [address] [place] Hematocrit (Bld) [Volume fraction] 34.1 % Low 39.0-51.0 [facility] Comment on above: Order Comment: Speci men Type: BLOOD SPECIMEN Ordering Facility: [facility] Address: [address] [place] [address] Performed By: #### 5 8410-2 #### [facility] IA [id number] [address] [place] [address] [place] Hemoglobin (Bld) [Mass/Vol] 11.6 g/dL Low 13.0-17.0 [facility] Comment on above: Order Comment: Speci men Type: BLOOD SPECIMEN Ordering Facility: [facility] Address: [address] [place] [address] Performed By: #### 5 8410-2 #### [facility] CLIA [id number] [address] [place] [address] [place] MCH (RBC) [Entitic mass] 32.3 pg Normal 26.0-34.0 [facility] Comment on above: Order Comment: Speci men Type: BLOOD SPECIMEN Ordering Facility: [facility] Address: [address] [place] [address] Performed By: #### 5 8410-2 #### [facility] IA [id number] [address] [place] [address] [place] MCHC (RBC) [Mass/Vol] 34.0 g/dL Normal 30.5-36.0 [facility] Comment on above: Order Comment: Speci men Type: BLOOD SPECIMEN Ordering Facility: [facility] Address: [address] [place] [address] Performed By: #### 5 8410-2 #### [facility] [place] [id number] [address] [place] [address] [place] MCV (RBC) [Entitic vol] 95.0 fL Normal 80.0-100.0 [facility] Comment on above: Order Comment: Speci men Type: BLOOD SPECIMEN Ordering Facility: [facility] Address: [address] [place] [address] Performed By: #### 5 8410-2 #### [facility] IA [id number] [address] [place] [address] [place] Nucleated RBC (Bld) [#/Vol] 10*3/uL Normal <0.01 [facility] Comment on above: Order Comment: Speci men Type: BLOOD SPECIMEN Ordering Facility: [facility] Address: [address] [place] [address] Performed By: #### 5 8410-2 #### [facility] IA [id number] [address] [place] [address] [place] Platelet mean volume (Bld) [Entitic vol] 9.6 fL Normal 9.0-12.7 [facility] Comment on above: Order Comment: Speci men Type: BLOOD SPECIMEN Ordering Facility: [facility] Address: [address] [place] [address] Performed By: #### 5 8410-2 #### [facility] CLIA [id number] [address] [place], [place] [address] [place] Platelets (Bld) [#/Vol] 159 10*3/uL Normal 150-400 [facility] Comment on above: Order Comment: Speci men Type: BLOOD SPECIMEN Ordering Facility: [facility] Address: [address] [place] [address] Performed By: #### 5 8410-2 #### [facility] CLIA [id number] [address] [place], [place] [address] [place] RBC (Bld) [#/Vol] 3.59 10*6/uL Low 4.20-6.00 [facility] Comment on above: Order Comment: Speci men Type: BLOOD SPECIMEN Ordering Facility: [facility] Address: [address] [place] [address] Performed By: #### 5 8410-2 #### [facility] CLIA [id number] [address] [place], [place] [address] [place] WBC (Bld) [#/Vol] 8.72 10*3/uL Normal 3.70-11.00 [facility] Comment on above: Order Comment: Speci men Type: BLOOD SPECIMEN Ordering Facility: [facility] Address: [address] [place] [address] Performed By: #### 5 8410-2 #### [facility] IA [id number] [address] [place], [place] [address] [place] NURSING PROGon 12-09-2022 NURSING PROG HNO ID: [id number] Author: Abdias Pemberton RN Service: Nursing Author Type: Registered Nurse Type: Nursing Progress Note Filed: 12/09/2022 7:21 PM Note Text: 12/09/2022 0826: hydromorphone TRAINMASTER rate varied. Patient rating pain 8/10 at this time stating oh, its much better than yesterday . 0931: Patient working with PT at this time 1035: Patient resting/sleeping comfortably in bed at this time. 1200: fentaNYL TRAINMASTER ordered. 1345: Patient ambulating in the hallway with nursing staff and . 1402: Patient at radiology for post-op XR 1406: Hydromorphone TRAINMASTER discontinued. While discontinuing the hydromorphone TRAINMASTER, patient made several comments about unused hydromorphone, I can take that medication off your hands. Patient educated that the medication will be properly wasted per protocol. 1407: fentaNYL TRAINMASTER started and Hydromorphone properly wasted per protocol. [...] Can't you increase my setting on the TRAINMASTER because I had better pain relief with the Dilaudid pump because I could press the button more frequent? Can you increase the pump settings? [facility] THERAPY NTon 12-09-2022 THERAPY NT HNO ID: [id number] Author: Abdias Crooks OT/L Service: Occupational Therapy Author Type: Occupational Therapist Type: Therapy (PT/OT/Speech/Resp) Filed: 12/09/2022 3:30 PM Note Text: Occupational Therapy Evaluation SERVICE DATE: 12/09/2022 SERVICE TIME: 1438 to 1502 ROOM: [address]- Total Joint Replacement Discharge Readiness: Cleared [...] slower than expec (more content not included)... [facility] THERAPY NT HNO ID: [id number] Author: Hannah Mota PT, DPT Service: Physical Therapy Author Type: Physical Therapist Type: Therapy (PT/OT/Speech/Resp) Filed: 12/09/2022 10:06 AM Note Text: Physical Therapy Treatment SERVICE DATE: 12/09/2022 SERVICE TIME: 930 to 954 ROOM: [id number]- Total Joint Replacement Discharge Readiness: Cleared from Physical Therapy Recommended Discharge Disposition: Home Anticipated Discharge Needs: Physical Assist at Home Physical Assist at Home for: Cleaning, Laundry, Meals, Stairs, Safety Recommended Discharge Equipment: No equipment needs anticipated PT 6 Clicks Score: 24 Pt agreeable to participate. Reports slight improvement in pain compared to yesterday but relies highly on TRAINMASTER. Pt able to ambulate around unit with [...] Difficulty walking-musculoskeleta l Interventions Provided: Therapeutic Activity (23961), Gait Training (19349) Therapeutic Activity (11755) Treatment Minutes: 10 $ Therapeutic Activity (52429) Billed Units: 1 unit Gait Training (73743) Treatment Minutes: 14 $ Gait Training (81143) Billed Units: 1 unit Training AND Education [...] for this therapy (more content not included)... [facility] XR LUMBAR 2V AP/LATon 2022 XR [...] IMPRESSION: Postoperative and degenerative changes as described. General Service Technician: PSCB Transcribe Date/Time: Dec 09 2022 3:39P Dictated by : DONNY WOO DO This examination was interpreted and the report reviewed and electronically signed by: DONNY WOO DO on Dec 09 2022 3:42PM EST [id number] Normal [facility] Basic metabolic 2000 panelon 12-08-2022 Anion gap [Moles/Vol] 7 mmol/L Low 9-18 [facility] Comment on above: Order Comment: Speci men Type: BLOOD SPECIMEN Ordering Facility: [facility] Address: [address] [place] [address] Performed By: #### 2 4321-2 #### [facility] CLIA [id number] [address] [place] [address] [place] Calcium [Mass/Vol] 8.2 mg/dL Low 8.5-10.2 [facility] Comment on above: Order Comment: Speci men Type: BLOOD SPECIMEN Ordering Facility: [facility] Address: [address] [place] [address] Performed By: #### 2 4321-2 #### [facility] CLIA [id number] [address] [place] [address] [place] Chloride [Moles/Vol] 106 mmol/L High 97-105 [facility] Comment on above: Order Comment: Speci men Type: BLOOD SPECIMEN Ordering Facility: [facility] Address: [address] [place] [address] Performed By: #### 2 4321-2 #### [facility] CLIA [id number] [address] [place] [address] [place] CO2 [Moles/Vol] 28 mmol/L Normal 22-30 [facility] Comment on above: Order Comment: Speci men Type: BLOOD SPECIMEN Ordering Facility: [facility] Address: [address] [place] [address] Performed By: #### 2 4321-2 #### [facility] CLIA [id number] [address] [place] [address] [place] Creatinine [Mass/Vol] 1.35 mg/dL High 0.73-1.22 [facility] Comment on above: Order Comment: Shahrzad dumont Type: BLOOD SPECIMEN Ordering Facility: [facility] Address: [address] [place] [address] Performed By: #### 2 4321-2 #### [facility] IA [id number] [address] [place], [place] [address] [place] Creatinine and Glomerular filtration rate.predicted panel (S/P/Bld) 60 mL/min/1.73m??? Normal >=60 [facility] Comment on above: Order Comment: Shahrzad dumont Type: BLOOD SPECIMEN Ordering Facility: [facility] Address: [address] [place] [address] Result Comment: Leah mated Glomerular Filtration Rate [...] #### 2 4321-2 #### [facility] IA [id number] [address] [place], [place] [address] [place] Glucose [Mass/Vol] 139 mg/dL High 74-99 [facility] Comment on above: Order Comment: Shahrzad dumont Type: BLOOD SPECIMEN Ordering Facility: [facility] Address: [address] [place] [address] Result Comment: The [place] [employer] (ADA) provides guidance for cutoff [...] Standards of Medical Care in Diabetes 2016, [place] [employer]. Diabetes Care. 2016.39(Suppl 1). Performed By: #### 2 4321-2 #### [facility] CLIA [id number] [address] [place] [address] [place] Potassium [Moles/Vol] 3.7 mmol/L Normal 3.7-5.1 [facility] Comment on above: Order Comment: Speci men Type: BLOOD SPECIMEN Ordering Facility: [facility] Address: [address] [place] [address] Performed By: #### 2 4321-2 #### [facility] CLIA [id number] [address] [place], [place] [address] [place] Sodium [Moles/Vol] 141 mmol/L Normal 136-144 [facility] Comment on above: Order Comment: Shahrzad dumont Type: BLOOD SPECIMEN Ordering Facility: [facility] Address: [address] [place] [address] Performed By: #### 2 4321-2 #### [facility] CLIA [id number] [address] [place] [address] [place] Urea nitrogen [Mass/Vol] 23 mg/dL Normal 9-24 [facility] Comment on above: Order Comment: Shahrzad dumont Type: BLOOD SPECIMEN Ordering Facility: [facility] Address: [address] [place] [address] Performed By: #### 2 4321-2 #### [facility] CLIA [id number] [address] [place], [place] [address] [place] CASE MGT INIT ASSESon 2022 CASE MGT INIT ASSES HNO ID: [id number] Author: Gloria Toro RN Service: ? Author Type: Registered Nurse Type: Care Mgt Initial Assessment Filed: 12/08/2022 8:48 AM Note Text: CARE MANAGEMENT: ASSESSMENT AND DISCHARGE PLAN SERVICE DATE: December 08, 2022 SERVICE TIME: 8:46 am PCP: Blayne Isabel MD Primary Contact: Extended Emergency Contact Information Primary Emergency Contact: Darryl Simental Address: [address] [place] [address] [place] [address] [place] Mobile Relation: Spouse [...] to go home, General wellness, Less pain [place] Explained: [place] Given: No Reason Not Given: [...] further skilled PT / OT needed at [place]. CM Department will continue to follow until [place]. SIGNATURE: Gloria Toro RN PATIENT NAME: Sukhdeep Simental DATE: December 08, 2022 TIME: 8:46 AM CONTACT #: [phone] Normal [facility] CBC panel Auto (Bld)on 12-08 Erythrocyte distribution width (RBC) [Ratio] 12.8 % Normal 11.5-15.0 [facility] Comment on above: Order Comment: Speci men Type: BLOOD SPECIMEN Ordering Facility: [facility] Address: [address] [place] [address] Performed By: #### 5 8410-2 #### [facility] CLIA [id number] [address] Hematocrit (Bld) [Volume fraction] 34.8 % Low 39.0-51.0 [facility] Comment on above: Order Comment: Speci men Type: BLOOD SPECIMEN Ordering Facility: [facility] Address: [address] [place] [address] Performed By: #### 5 8410-2 #### [facility] IA [id number] [address] [place] [address] [place] Hemoglobin (Bld) [Mass/Vol] 11.7 g/dL Low 13.0-17.0 [facility] Comment on above: Order Comment: Speci men Type: BLOOD SPECIMEN Ordering Facility: [facility] Address: [address] [place] [address] Performed By: #### 5 8410-2 #### [facility] IA [id number] [address] [place] [address] [place] MCH (RBC) [Entitic mass] 31.8 pg Normal 26.0-34.0 [facility] Comment on above: Order Comment: Speci men Type: BLOOD SPECIMEN Ordering Facility: [facility] Address: [address] [place] [address] Performed By: #### 5 8410-2 #### [facility] IA [id number] [address] [place] [address] [place] MCHC (RBC) [Mass/Vol] 33.6 g/dL Normal 30.5-36.0 [facility] Comment on above: Order Comment: Speci men Type: BLOOD SPECIMEN Ordering Facility: [facility] Address: [address] [place] [address] Performed By: #### 5 8410-2 #### [facility] IA [id number] [address] [place] [address] [place] MCV (RBC) [Entitic vol] 94.6 fL Normal 80.0-100.0 [facility] Comment on above: Order Comment: Speci men Type: BLOOD SPECIMEN Ordering Facility: [facility] Address: [address] [place] [address] Performed By: #### 5 8410-2 #### [facility] CLIA [id number] [address] [place] [address] [place] Nucleated RBC (Bld) [#/Vol] 10*3/uL Normal <0.01 [facility] Comment on above: Order Comment: Speci men Type: BLOOD SPECIMEN Ordering Facility: [facility] Address: [address] [place] [address] Performed By: #### 5 8410-2 #### [facility] CLIA [id number] [address] [place] [address] [place] Platelet mean volume (Bld) [Entitic vol] 9.4 fL Normal 9.0-12.7 [facility] Comment on above: Order Comment: Speci men Type: BLOOD SPECIMEN Ordering Facility: [facility] Address: [address] [place] [address] Performed By: #### 5 8410-2 #### [facility] CLIA [id number] [address] [place] [address] [place] Platelets (Bld) [#/Vol] 162 10*3/uL Normal 150-400 [facility] Comment on above: Order Comment: Speci men Type: BLOOD SPECIMEN Ordering Facility: [facility] Address: [address] [place] [address] Performed By: #### 5 8410-2 #### [facility] IA [id number] [address] [place] [address] [place] RBC (Bld) [#/Vol] 3.68 10*6/uL Low 4.20-6.00 [facility] Comment on above: Order Comment: Speci men Type: BLOOD SPECIMEN Ordering Facility: [facility] Address: [address] [place] [address] Performed By: #### 5 8410-2 #### [facility] CLIA [id number] [address] [place] [address] [place] WBC (Bld) [#/Vol] 7.95 10*3/uL Normal 3.70-11.00 [facility] Comment on above: Order Comment: Speci men Type: BLOOD SPECIMEN Ordering Facility: [facility] Address: [address] [place] [address] Performed By: #### 5 8410-2 #### [facility] CLIA [id number] [address] [place] [address] CONSULTon 12-08-2022 CONSULT HNO ID: [id number] Author: Lulu Oviedo MD Service: General Internal [...] Labs 12/08 (more content not included)... Normal [facility] NURSING PROGon 12-08-2022 NURSING PROG HNO ID: [id number] Author: Abdias Pemberton RN Service: Nursing Author [...] notified of the patient's increased pain after TRAINMASTER was DC'ed earlier and transitioned to PO medications. Hydromorphone TRAINMASTER reordered per Dr. Mathew. 172: Hydromorphone TRAINMASTER restarted. 1735: Patient assisted by nursing staff to bed and states that his pain has decreased. Patient resting comfortably in bed at this time. 1900: Patient resting comfortably in bed at this time. [facility] THERAPY NT 12-08-2022 THERAPY NT HNO ID: [id number] Author: Taylor Montoya OTR/Kelly Service: Occupational Therapy Author Type: Occupational Therapist Type: Therapy (PT/OT/Speech/Resp) Filed: 12/08/2022 12:35 PM Note Text: OCCUPATIONAL THERAPY MISSED VISIT SERVICE DATE: 12/08/2022 SERVICE TIME: 1233 to 1233 ROOM: [place] [address] Patient not seen due to Refused Treatment. Patient having a significant amount of pain. Offered patient option of working with OT tomorrow. Pt would prefer OT evaluation tomorrow. SIGNATURE: URSULA Glynn/Kelly PATIENT NAME: Sukhdeep Simental DATE: December 08, 2022 TIME: 12:34 PM [facility] THERAPY NT HNO ID: [id number] Author: Jean-Pierre Lutz, PT, DPT Service: Physical Therapy Author Type: Physical Therapist Type: Therapy (PT/OT/Speech/Resp) Filed: 12/08/2022 8:44 AM Note Text: Physical Therapy Evaluation SERVICE DATE: 12/08/2022 SERVICE TIME: 08 to 0831 ROOM: [place] [address] Cleared from Physical Therapy Recommended Discharge Disposition: [...] Weakness (generalized) Interventions Provided: Evaluation, Gait Training (70940) $ Evaluation-Low (49583) Billed Units: 1 unit Gait Training (88850) Treatment Minutes: 8 $ Gait Training (40189) Billed Units: 1 unit Training AND Education [...] DATE: December 08, 2022 TIME: 8:44 AM [facility] ANES POSTPROC EVALon 023 ANES POSTPROC EVAL HNO ID: [id number] Author: Ankit Orlando MD Service: Anesthesiology Author [...] December 07, 2022 TIME: 3:37 PM CSN: [id number] [facility] ANES PRE-OPon 12-07-2022 ANES PRE-OP HNO ID: [id number] Author: Nasim Pruett I, MD Service: Anesthesiology [...] December 07, 2022 TIME: 7:01 AM CSN: [id number] [facility] BRIEF OP NOTon 12-07-2022 BRIEF OP NOT HNO ID: [id number] Author: Thomas Mahtew MD Service: Neurosurgery Author Type: Physician Type: Brief Op Note Filed: 12/07/2022 12:49 PM Note Text: BRIEF OPERATIVE / PROCEDURE NOTE LOG ID: [id number] SURGERY/PROCEDURE DATE: 12/07/2022 INCISION/PROCEDURE START TIME: 8:09 AM INCISION CLOSE/PROCEDURE END TIME: 12:34 PM SURGEON(S)/PROCEDURALI ST(S) AND ROUTER SETTER(S): Surgeon(s) and Role: * Thomas Mathew MD [...] DATE: December 07, 2022 TIME: 12:31 PM [facility] NURSING PROGon 12-07-2022 NURSING PROG HNO ID: [id number] Author: Livia Calix RN Service: ? Author Type: Registered Nurse Type: Nursing Progress Note Filed: 12/07/2022 2:48 PM Note Text: Transfer Note: PATIENT NAME: Sukhdeep Simental Patient Location: [address]/[facility]- 02 Room: [place] [address] Patient transferred into room/unit [facility] in stable condition. Patient educated on use of call light, fall precautions, and incentive spirometer. No futher actions taken at this time. Will continue to monitor and check with patient. [facility] OPERATIVE NOon 12-07-2022 OPERATIVE NO HNO ID: [id number] Author: Thomas Mathew MD Service: Neurosurgery Author Type: Physician Type: Operative Report Filed: 12/07/2022 3:54 PM Note Text: OPERATIVE/PROCEDURE REPORT LOG ID: [id number] SURGERY/PROCEDURE DATE: 12/07/2022 INCISION/PROCEDURE START TIME: 8:09 AM INCISION CLOSE/PROCEDURE END TIME: 12:34 PM SURGEON(S)/PROCEDURALI ST(S) AND ROUTER SETTER(S): Surgeon(s) and Role: * Thomas Mathew MD [...] and sized at a 10 mm. The [employer] system was the instrumentation system used. 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 The gear shift along with [...] Implant Name Type Inv. Item Serial No. Regional Marketing Director Lot No. LRB No. Used Action [employer] [id number] BIOACTIVE BONE GRAFT [employer] 5.0CUB CM Implant [place] [id number] N/A 1 Implanted CAGE TRITANIUM 6D [id number] SPINAL STERILE LATEX FREE LUMBAR POSTERIOR - [id number] Implant CAGE TRITANIUM 6D [id number] SPINAL STERILE LATEX FREE LUMBAR POSTERIOR [place] SPINE T9H8 N/A 1 Implanted CAGE TRITANIUM 6D [id number] SPINAL STERILE LATEX FREE LUMBAR POSTERIOR - [id number] Implant CAGE TRITANIUM 6D [id number] (more content not included)... [facility] X[facility] LUMBAR 2V AP/LATon 2022 XR [...] examination for surgical planning and documentation. . General Service Technician: PSCJohn Transcribe Date/Time: Dec 07 2022 3:13P Dictated by : DONNY WOO DO This examination was interpreted and the report reviewed and electronically signed by: DONNY WOO DO on Dec 07 2022 3:15PM EST [id number] [facility] XR LUMBAR 2V AP/LAT * * [...] Intraoperative examination for surgical planning and documentation. General Service Technician: COURTNEY Transcribe Date/Time: Dec 07 2022 2:43P Dictated by : DONNY WOO DO This examination was interpreted and the report reviewed and electronically signed by: DONNY WOO DO on Dec 07 2022 2:46PM EST [id number] [facility] XR LUMBAR 2V AP/LAT * * [...] examination for surgical planning and documentation. . General Service Technician: PSCB Transcribe Date/Time: Dec 07 2022 2:37P Dictated by : DONNY WOO DO This examination was interpreted and the report reviewed and electronically signed by: DONNY WOO DO on Dec 07 2022 2:40PM EST [id number] [facility] 11-29-2022 [facility] Telephone (NIQ) SUKHDEEP SIMENTAL ([id number]) 1965 M Date Time Provider Department 11/29/22 THOMAS MATHEW NI During your visit today, we recorded the following information about you: Moriah Ferguson 11/29/2022 9:50 AM Signed Patient called regarding a C/9 being filed for his Dec 07 surgery. He spoke to his [facility] contact and they said nothing has been filed yet. Please update patient. Juan Pablo Nova RN 11/29/2022 10:27 AM Signed C9 sent to provider for signature. Awaiting signature. Juan Pablo Nova RN 11/29/2022 12:20 PM Signed Signed C9 sent to [facility] and [facility]. Faxed verifications received. Kathe Lezama 12/05/2022 11:01 AM Signed Patient calling asking for an update on his C9 and surgery approval. He would like to know if nurse can reach out to [facility] for an update and let him know. Juan Pablo Nova RN 12/05/2022 11:43 AM Signed Called Sunita and discussed patient's upcoming surgery. Per Sunita she did already explain to the patient that the information was submitted to the Expert Witness for review and does take up to 5 business days for a decision. Juan Pablo Nova RN 12/05/2022 1:16 PM Signed Spoke with patient. Informed case is still on for Saturday and that I spoke with Sunita. Patient appreciative of call. Ekaterina Rondon 12/06/2022 11:34 AM Addendum Sunita called from [facility], regarding patient surgery tomorrow. Surgery has been approved based on what it was shown on the medical record. Sunita wanted a called back # [phone] Ekaterina Rondon 12/06/2022 11:35 AM Signed [facility] Scan in patient [...] Date Reviewed: 11/21/2022 Reviewed by: Maite Galloway APRN.SUPERVISOR CURING ROOM - Fully Assessed Reason for Visit: Bwc [...] by JUAN PABLO NOVA on 11/29/22 Normal [facility] CBC W Auto Differential pane l (Bld)on 11-21-2022 Basophils (Bld) [#/Vol] 0.04 10*3/uL Normal <0.11 [facility] Comment on above: Order Comment: Speci men Type: BLOOD SPECIMENOrdering Facility: [facility] Address: [address] [address] Performed By: #### 5 7021-8 ####[facility] LABCLIA [id number] [place] [address] [place] Basophils/100 WBC (Bld) 0.8 % Normal [facility] Comment on above: Order Comment: Speci men Type: BLOOD SPECIMENOrdering Facility: [facility] Address: [address] [address] Performed By: #### 5 7021-8 ####[facility] LABCLIA [id number] [place] [address] [place] Differential cell count method Nom (Bld) Auto Normal [facility] Comment on above: Order Comment: Speci men Type: BLOOD SPECIMENOrdering Facility: [facility] Address: [address] [place], [place] [address] Performed By: #### 5 7021-8 ####[facility] LABCLIA [id number] [place] [address] [place] Eosinophils (Bld) [#/Vol] 0.11 10*3/uL Normal <0.46 [facility] Comment on above: Order Comment: Speci men Type: BLOOD SPECIMENOrdering Facility: [facility] Address: [address] [place], [place] [address] Performed By: #### 5 7021-8 ####[facility] LABCLIA [id number] [address] [place] Eosinophils/100 WBC (Bld) 2.1 % Normal [facility] Comment on above: Order Comment: Speci men Type: BLOOD SPECIMENOrdering Facility: [facility] Address: [address] [place], [place] [address] Performed By: #### 5 7021-8 ####[facility] LABCLIA [id number] [place] [address] [place] Erythrocyte distribution width (RBC) [Ratio] 12.4 % Normal 11.5-15.0 [facility] Comment on above: Order Comment: Speci men Type: BLOOD SPECIMENOrdering Facility: [facility] Address: [address] [place], [place] [address] Performed By: #### 5 7021-8 ####[facility] LABCLIA [id number] [place] [address] [place] Hematocrit (Bld) [Volume fraction] 42.9 % Normal 39.0-51.0 [facility] Comment on above: Order Comment: Speci men Type: BLOOD SPECIMENOrdering Facility: [facility] Address: [address] [place], [place] [address] Performed By: #### 5 7021-8 ####[facility] LABCLIA [id number] [place] [address] [place] Hemoglobin (Bld) [Mass/Vol] 14.5 g/dL Normal 13.0-17.0 [facility] Comment on above: Order Comment: Speci men Type: BLOOD SPECIMENOrdering Facility: [facility] Address: [address] [place], [place] [address] Performed By: #### 5 7021-8 ####[facility] LABCLIA [id number] [place] [address] [place] Immature granulocytes (Bld) [#/Vol] 10*3/uL Normal <0.10 [facility] Comment on above: Order Comment: Speci men Type: BLOOD SPECIMENOrdering Facility: [facility] Address: [address] [place], [place] [address] Performed By: #### 5 7021-8 ####[facility] LABCLIA [id number] [place] [address] [place] Immature granulocytes/100 WBC (Bld) 0.4 % Normal [facility] Comment on above: Order Comment: Speci men Type: BLOOD SPECIMENOrdering Facility: [facility] Address: [address] [place], [place] [address] Performed By: #### 5 7021-8 ####[facility] LABCLIA [id number] [place] [address] [place] Lymphocytes (Bld) [#/Vol] 1.45 10*3/uL Normal 1.00-4.00 [facility] Comment on above: Order Comment: Speci men Type: BLOOD SPECIMENOrdering Facility: [facility] Address: [address] [place] [address] Performed By: #### 5 7021-8 ####[facility] LABIA [id number] [address] [place] Lymphocytes/100 WBC (Bld) 27.4 % Normal [facility] Comment on above: Order Comment: Speci men Type: BLOOD SPECIMENOrdering Facility: [facility] Address: [address] [place], [place] [address] Performed By: #### 5 7021-8 ####[facility] LABIA [id number] [place] [address] [place] MCH (RBC) [Entitic mass] 31.7 pg Normal 26.0-34.0 [facility] Comment on above: Order Comment: Speci men Type: BLOOD SPECIMENOrdering Facility: [facility] Address: [address] [place], [place] [address] Performed By: #### 5 7021-8 ####[facility] LABIA [id number] [address] [place] MCHC (RBC) [Mass/Vol] 33.8 g/dL Normal 30.5-36.0 [facility] Comment on above: Order Comment: Speci men Type: BLOOD SPECIMENOrdering Facility: [facility] Address: [address] [place], [place] [address] Performed By: #### 5 7021-8 ####[facility] LABIA [id number] [address] [place] MCV (RBC) [Entitic vol] 93.7 fL Normal 80.0-100.0 [facility] Comment on above: Order Comment: Speci men Type: BLOOD SPECIMENOrdering Facility: [facility] Address: [address] [place], [place] [address] Performed By: #### 5 7021-8 ####[facility] LABIA [id number] [address] [id number] [address] [place] Monocytes (Bld) [#/Vol] 0.49 10*3/uL Normal <0.87 [facility] Comment on above: Order Comment: Speci men Type: BLOOD SPECIMENOrdering Facility: [facility] Address: [address] [place] [address] Performed By: #### 5 7021-8 ####[facility] LABCLIA [id number] [place] [address] [place] Monocytes/100 WBC (Bld) 9.2 % Normal [facility] Comment on above: Order Comment: Speci men Type: BLOOD SPECIMENOrdering Facility: [facility] Address: [address] [place], [place] [address] Performed By: #### 5 7021-8 ####[facility] LABCLIA [id number] [place] [address] [place] Neutrophils (Bld) [#/Vol] 3.19 10*3/uL Normal 1.45-7.50 [facility] Comment on above: Order Comment: Speci men Type: BLOOD SPECIMENOrdering Facility: [facility] Address: [address] [place], [place] [address] Performed By: #### 5 7021-8 ####[facility] LABCLIA [id number] [place] [address] [place] Neutrophils/100 WBC (Bld) 60.1 % Normal [facility] Comment on above: Order Comment: Speci men Type: BLOOD SPECIMENOrdering Facility: [facility] Address: [address] [place], [place] [address] Performed By: #### 5 7021-8 ####[facility] LABCLIA [id number] [place] [address] [place] Nucleated RBC (Bld) [#/Vol] 10*3/uL Normal <0.01 [facility] Comment on above: Order Comment: Speci men Type: BLOOD SPECIMENOrdering Facility: [facility] Address: [address] Performed By: #### 5 7021-8 ####[facility] LABCLIA [id number] [place] [address] [place] Nucleated RBC/100 WBC (Bld) [Ratio] 0.0 /100 WBC Normal [facility] Comment on above: Order Comment: Speci men Type: BLOOD SPECIMENOrdering Facility: [facility] Address: [address] Performed By: #### 5 7021-8 ####[facility] LABIA [id number] [place] [address] [place] Platelet mean volume (Bld) [Entitic vol] 9.4 fL Normal 9.0-12.7 [facility] Comment on above: Order Comment: Speci men Type: BLOOD SPECIMENOrdering Facility: [facility] Address: [address] Performed By: #### 5 7021-8 ####[facility] LABCLIA [id number] [place] [address] [place] Platelets (Bld) [#/Vol] 222 10*3/uL Normal 150-400 [facility] Comment on above: Order Comment: Speci men Type: BLOOD SPECIMENOrdering Facility: [facility] Address: [address] Performed By: #### 5 7021-8 ####[facility] LABCLIA [id number] [place] [address] [place] RBC (Bld) [#/Vol] 4.58 10*6/uL Normal 4.20-6.00 [facility] Comment on above: Order Comment: Speci men Type: BLOOD SPECIMENOrdering Facility: [facility] Address: [address] Performed By: #### 5 7021-8 ####[facility] LABCLIA [id number] [place] [address] [place] WBC (Bld) [#/Vol] 5.30 10*3/uL Normal 3.70-11.00 [facility] Comment on above: Order Comment: Speci men Type: BLOOD SPECIMENOrdering Facility: [facility] Address: [address] [place] [address] Performed By: #### 5 7021-8 ####[facility] LABCLIA [id number] [place] [address] [place] CONFIRM BLOOD TYPEon 023 ABO A Normal [facility] Comment on above: Order Comment: Speci men Type: BLOOD SPECIMENOrdering Facility: [facility] Address: [address] [place] [address] Performed By: #### C ONABO ####[facility] BLOOD BANKCLIA [id number] [place] [address] [place] Rh Nom (Bld) Negative Normal [facility] Comment on above: Order Comment: Speci men Type: BLOOD SPECIMENOrdering Facility: [facility] Address: [address] [place] [address] Performed By: #### C ONABO ####[facility] BLOOD BANKCLIA [id number] [place] [address] [place] Comprehensive metabolic 2000 panelon 11-21-2022 Albumin [Mass/Vol] 4.3 g/dL Normal 3.9-4.[address] [facility] Comment on above: Order Comment: Speci men Type: BLOOD SPECIMENOrdering Facility: [facility] Address: [address] [place] [address] Performed By: #### 2 4323-8 ####[facility] LABCLIA [id number] [place] [address] [place] ALP [Catalytic activity/Vol] 68 U/L Normal 38-113 [facility] Comment on above: Order Comment: Speci men Type: BLOOD SPECIMENOrdering Facility: [facility] Address: [address] [address] Performed By: #### 2 4323-8 ####[facility] LABCLIA [id number] [address] [place] [facility] ALT [Catalytic activity/Vol] 16 U/L Normal 10-54 [facility] Comment on above: Order Comment: Speci men Type: BLOOD SPECIMENOrdering Facility: [facility] Address: [address] [address] Performed By: #### 2 4323-8 ####[facility] LABCLIA [id number] [place] [address] [place] Anion gap [Moles/Vol] 10 mmol/L Normal 9-18 [facility] Comment on above: Order Comment: Speci men Type: BLOOD SPECIMENOrdering Facility: [facility] Address: [address] [address] Performed By: #### 2 4323-8 ####[facility] LABCLIA [id number] [address] [place] AST [Catalytic activity/Vol] 21 U/L Normal 14-40 [facility] Comment on above: Order Comment: Speci men Type: BLOOD SPECIMENOrdering Facility: [facility] Address: [address] Performed By: #### 2 4323-8 ####[facility] LABCLIA [id number] [place] [address] [place] Bilirubin [Mass/Vol] 0.5 mg/dL Normal 0.2-1.3 [facility] Comment on above: Order Comment: Speci men Type: BLOOD SPECIMENOrdering Facility: [facility] Address: [address] Performed By: #### 2 4323-8 ####[facility] LABCLIA [id number] [place] [address] [place] Calcium [Mass/Vol] 9.9 mg/dL Normal 8.5-10.[address] [facility] Comment on above: Order Comment: Speci men Type: BLOOD SPECIMENOrdering Facility: [facility] Address: [address] [place] [address] Performed By: #### 2 4323-8 ####[facility] LABCLIA [id number] [place] [address] [place] Chloride [Moles/Vol] 106 mmol/L High 97-105 [facility] Comment on above: Order Comment: Speci men Type: BLOOD SPECIMENOrdering Facility: [facility] Address: [address] [place] [address] Performed By: #### 2 4323-8 ####[facility] LABCLIA [id number] [place] [address] [place] CO2 [Moles/Vol] 27 mmol/L Normal 22-30 [facility] Comment on above: Order Comment: Speci men Type: BLOOD SPECIMENOrdering Facility: [facility] Address: [address] [place], [place] [address] Performed By: #### 2 4323-8 ####[facility] LABCLIA [id number] [place] [address] [place] Creatinine [Mass/Vol] 1.22 mg/dL Normal 0.73-1.22 [facility] Comment on above: Order Comment: Speci men Type: BLOOD SPECIMENOrdering Facility: [facility] Address: [address] [place], [place] [address] Performed By: #### 2 4323-8 ####[facility] LABCLIA [id number] [place] [address] [place] Creatinine and Glomerular filtration rate.predicted panel (S/P/Bld) 68 mL/min/1.73m??? Normal >=60 [facility] Comment on above: Order Comment: Shahrzad dumont Type: BLOOD SPECIMENOrdering Facility: [facility] Address: [address] [place] [address] Result Comment: Leah mated Glomerular Filtration Rate [...] actual GFR. Performed By: #### 2 4323-8 ####[facility] LABIA [id number] [place] [address] [place] Glucose [Mass/Vol] 111 mg/dL High 74-[address] [facility] Comment on above: Order Comment: Shahrzad dumont Type: BLOOD SPECIMENOrdering Facility: [facility] Address: [address] [address] Result Comment: The [place] Diabetes Association (ADA) provides guidance for cutoff [...] Standards of Medical Care in Diabetes 2016, [place] Diabetes Association. Diabetes Care. 2016.39(Suppl 1). Performed By: #### 2 4323-8 ####[facility] LABGIFF[facility] [id number] [place] [address] [place] Potassium [Moles/Vol] 4.2 mmol/L Normal 3.7-5.1 [facility] Comment on above: Order Comment: Shahrzad dumont Type: BLOOD SPECIMENOrdering Facility: [facility] Address: [address] [address] Performed By: #### 2 4323-8 ####[facility] LABCLIA [id number] [place] [address] [place] Protein [Mass/Vol] 7.0 g/dL Normal 6.3-8.[address] [facility] Comment on above: Order Comment: Speci men Type: BLOOD SPECIMENOrdering Facility: [facility] Address: [address] [address] Performed By: #### 2 4323-8 ####[facility] LABIA [id number] [place] [address] [place] Sodium [Moles/Vol] 143 mmol/L Normal 136-[address] [facility] Comment on above: Order Comment: Speci men Type: BLOOD SPECIMENOrdering Facility: [facility] Address: [address] [address] Performed By: #### 2 4323-8 ####[facility] LABIA [id number] [place] [address] [place] Urea nitrogen [Mass/Vol] 22 mg/dL Normal 9-24 [facility] Comment on above: Order Comment: Speci men Type: BLOOD SPECIMENOrdering Facility: [facility] Address: [address] [place] [address] Performed By: #### 2 4323-8 ####[facility] LABIA [id number] [place] [address] [place] [id number] 11-21-2022 ECG01 Ventricular Rate : 6 5 BPM Atrial Rate : 65 BPM P-R Interval : 180 ms QRS Duration : 98 ms Q-T Interval : 440 ms QTC Calculation(Bazett) : 457 ms Calculated P [place] : 0 degrees Calculated R [place] : -10 degrees Calculated T [place] : 49 degrees NORMAL SINUS RHYTHM NORMAL ECG Confirmed by SHANIA RESTREPO M.D. ([id number]) on 11/22/2022 12:00:34 PM NAME : SUKHDEEP SIMENTAL PID : [id number] : 1965 Gender : Male Race : ORD : Procedure Date : Nov 21 2022 10:59:49 Edit Date : Nov 22 2022 12:00:38 Diagnosis: NORMAL SINUS RHYTHM NORMAL ECG Confirmed by SHANIA RESTREPO M.D. ([id number]) on 11/22/2022 12:00:34 PM Test Reason : SURGERY Location : [facility] : [facility] Overread By : SHANIA RESTREPO M.D. Edited By : SHANIA RESTREPO M.D. Referred By : THOMAS MATHEW Acquired by : Santiago DANI[place]LE [facility] HISTORY PHYSICALon HISTORY PHYSICAL HNO ID: [id number] Author: Maite Galloway APRN.SUPERVISOR CURING ROOM Service: ? Author Type: Nurse Practitioner Type: [...] pain. Skin: (more content not included)... Normal [facility] HbA1c (Bld)on 11-21-2022 Average glucose Estimated from glycated hemoglobin (Bld) [Mass/Vol] 111 mg/dL Normal [facility] Comment on above: Order Comment: Shahrzad dumont Type: BLOOD SPECIMENOrdering Facility: [facility] Address: [address] [address] Result Comment: eAG: (Estimated average glucose) is a calculated value from HgbA1c and is instruments sales representative of the average blood glucose level in the last 2-3 month period. Performed By: #### 5 5454-3 ####[facility] LABCLIA [id number] [facility] [id number] [place] [address] [place] HbA1c (Bld) [Mass fraction] 5.5 % Normal 4.3-5.6 [facility] Comment on above: Order Comment: Shahrzad dumont Type: BLOOD SPECIMENOrdering Facility: [facility] Address: [address] [address] Result Comment: [place] Diabetes Association guidelines indicate that patients with HgbA1c in the range 5.7-6.4% are at increased risk for development of diabetes, and intervention by lifestyle modification may be beneficial. HgbA1c greater or equal to 6.5% is considered diagnostic of diabetes. Performed By: #### 5 5454-3 ####[facility] LABCLIA [id number] [address] TYPE AND SCREEN,30 DAYon ABO A Normal [facility] Comment on above: Order Comment: Speci men Type: BLOOD SPECIMENOrdering Facility: [facility] Address: [address] [place] [address] Performed By: #### T SCR30 ####[facility] BLOOD BANKCLIA [id number] [address] HISTORICAL AB SCR STATUS Negative Normal [facility] Comment on above: Order Comment: Speci men Type: BLOOD SPECIMENOrdering Facility: [facility] Address: [address] [place] [address] Performed By: #### T SCR30 ####[facility] BLOOD BANKCLIA [id number] [address] Rh Nom (Bld) Negative Normal [facility] Comment on above: Order Comment: Speci men Type: BLOOD SPECIMENOrdering Facility: [facility] Address: [address] [place] [address] Performed By: #### T SCR30 ####[facility] BLOOD BANKIA [id number] [address] ABD/PELVIS WO CONon 07-06 CT [...] by: OBIE TSE Date: 2022-07-06 13:19 Normal [facility] PTH INTACTon 06-12-2022 PTH, Intact 38 pg/mL Normal 15-65 [facility] Comment on above: Performed By: #### P T #### [facility] [address] [place] [address] Dr. Hugh Landis FERRITINon 06-11-2022 Ferritin [Mass/Vol] 96.0 ng/mL Normal 26.0-388.0 [facility] Comment on above: Performed By: #### P T #### [facility] [address] [place] [address] Dr. Hugh [place] HEMOGRAM AND PLATELon 2022 Hematocrit (Bld) [Volume fraction] 39.1 % Critically low 42.0-54.0 [facility] Comment on above: Performed By: #### H H #### [facility] [address] [address] [address] Hugh Landis Hemoglobin (Bld) [Mass/Vol] 13.3 g/dL Critically low 14.0-18.0 [facility] Comment on above: Performed By: #### H H #### [facility] [address] [place] [address] Dr. Hugh Landis MCH (RBC) [Entitic mass] 30.5 pg Normal 25.9-34.0 [facility] Comment on above: Performed By: #### H H #### [facility] [address] [address] [address] Hugh Landis MCHC (RBC) [Mass/Vol] 34.0 g/dL Normal 29.9-35.2 [facility] Comment on above: Performed By: #### H H #### [facility] [address] [address] [address] Hugh Landis MCV (RBC) [Entitic vol] 89.7 fL Normal 80.0-94.0 [facility] Comment on above: Performed By: #### H H #### [facility] [address] [place] [address] Dr. Hugh Landis PLT 230 103/ul Normal 150-450 [facility] Comment on above: Performed By: #### H H #### [facility] [address] [place] [address] Dr. Hugh Landis RBC 4.36 106/ul Critically low 4.70-6.10 [facility] Comment on above: Performed By: #### H H #### [facility] [address] [address] [address] Hugh Landis WBC 4.8 103/ul Normal 4.0-11.0 [facility] Comment on above: Performed By: #### H H #### [facility] [address] [place] [address] Dr. Hugh Landis IRON AND TIBCon 06-11-2022 % SATURATION 55.0 % Normal [facility] Comment on above: Performed By: #### P T #### [facility] [address] [place] [address] Dr. Hugh Landis Iron [Mass/Vol] 137.0 ug/dL Normal 65.0-175.0 [facility] Comment on above: Performed By: #### P T #### [facility] [address] [address] [address] Hugh Landis TIBC DIRECT 249.0 ug/dL Critically low 250.0-450.0 [facility] Comment on above: Performed By: #### P T #### [facility] [address] [address] [address] Hugh Landis MAGNESIUMon 06-11-2022 Magnesium [Mass/Vol] 1.9 mg/dL Normal 1.8-2.4 [facility] Comment on above: Performed By: #### P TT #### [facility] [address] [place] [address] Dr. Hugh Landis RENAL FUNCTION PANELon 06-11 Albumin [Mass/Vol] 3.5 g/dL Normal 3.4-5.0 [facility] Comment on above: Performed By: #### P TT #### [facility] [address] [address] [address] Hugh Landis Calcium [Mass/Vol] 9.5 mg/dL Normal 8.5-10.1 [facility] Comment on above: Performed By: #### P TT #### [facility] [address] [place] [address] Dr. Hugh Landis Chloride [Moles/Vol] 107 mmol/L Normal 98-107 [facility] Comment on above: Performed By: #### P TT #### [facility] [address] [address] [address] Hugh Landis CO2 [Moles/Vol] 30.9 mmol/L Normal 21.0-32.0 [facility] Comment on above: Performed By: #### P TT #### [facility] [address] [place] [address] Dr. Hugh Landis Creatinine [Mass/Vol] 1.41 mg/dL Critically high 0.70-1.30 [facility] Comment on above: Performed By: #### P TT #### [facility] [address] [address] [address] Hugh Landis EGFR-AF TAIWANESE >60 Normal >=60 [facility] Comment on above: Performed By: #### P TT #### [facility] [address] [place] [address] Dr. Hugh Landis EGFR-NON AF TAIWANESE 52 mL/min/1.73m2 Critically low >=60 [facility] Comment on above: Performed By: #### P TT #### [facility] [address] [address] [address] Hugh Landis Glucose [Mass/Vol] 118 mg/dL Critically high 74-106 [facility] Comment on above: Performed By: #### P TT #### [facility] [address] [address] [address] Hugh Landis Phosphate [Mass/Vol] 3.0 mg/dL Normal 2.6-4.7 [facility] Comment on above: Performed By: #### P TT #### [facility] [address] [address] [address] Hugh Landis Potassium [Moles/Vol] 3.9 mmol/L Normal 3.5-5.1 [facility] Comment on above: Performed By: #### P TT #### [facility] [address] [address] [address] Hugh Landis Sodium [Moles/Vol] 143 mmol/L Normal 136-145 [facility] Comment on above: Performed By: #### P TT #### [facility] [address] [address] [address] Hugh Landis Urea nitrogen [Mass/Vol] 19.0 mg/dL Critically high 7.0-18.0 [facility] Comment on above: Performed By: #### P TT #### [facility] [address] [address] [address] Hugh Landis UA RANDOM W/MICROSCOPICon BACTERIA NONE SEEN Normal NONE SEEN [facility] Comment on above: Performed By: #### P T #### [facility] [address] [address] [address] Hugh Landis Bilirubin Ql (U) Negative Normal NEGATIVE [facility] Comment on above: Performed By: #### P T #### [facility] [address] [address] [address] Hugh Landis CAST NONE SEEN Normal NONE SEEN [facility] Comment on above: Performed By: #### P T #### [facility] [address] [address] [address] Hugh Landis Clarity (U) CLEAR Normal CLEAR [facility] Comment on above: Performed By: #### P T #### [facility] [address] [address] [address] Hugh Landis Color (U) YELLOW Normal YELLOW [facility] Comment on above: Performed By: #### P T #### [facility] [address] [address] [address] Hugh Landis Crystals LM Nom (Urine sed) NONE SEEN Normal NONE SEEN [facility] Comment on above: Performed By: #### P T #### [facility] [address] [address] [address] Hugh Landis Epithelial cells LM Ql (Urine sed) FEW Abnormal NONE SEEN /RARE [facility] Comment on above: Performed By: #### P T #### [facility] [address] [place] [address] Dr. Hugh Landis Glucose Ql (U) Negative Normal NEGATIVE [facility] Comment on above: Performed By: #### P T #### [facility] [address] [address] [address] Hugh Landis Hemoglobin Ql (U) Negative Normal NEGATIVE [facility] Comment on above: Performed By: #### P T #### [facility] [address] [place] [address] Dr. Hugh Landis Ketones Ql (U) TRACE Abnormal NEGATIVE [facility] Comment on above: Performed By: #### P T #### [facility] [address] [address] [address] Hugh Landis LEUKOCYTES Negative Normal NEGATIVE [facility] Comment on above: Performed By: #### P T #### [facility] [address] [address] [address] Hugh Landis MUCOUS MODERATE Abnormal NONE SEEN [facility] Comment on above: Performed By: #### P T #### [facility] [address] [place] [address] Dr. Hugh Landis Nitrite Ql (U) Negative Normal NEGATIVE [facility] Comment on above: Performed By: #### P T #### [facility] [address] [place] [address] Dr. Hugh Landis pH (U) 5.0 [pH] Normal 5-9 [facility] Comment on above: Performed By: #### P T #### [facility] [address] [place] [address] Dr. Hugh Landis RBC NONE SEEN Abnormal 0-2 [facility] Comment on above: Performed By: #### P T #### [facility] [address] [place] [address] Dr. Hugh Landis SPEC GRAVITY 1.025 Normal 1.005-<=1.02 5 [facility] Comment on above: Performed By: #### P T #### [facility] [address] [place] [address] Dr. Hugh Landis UA PROTEIN TRACE Normal NEGATIVE/ TRACE [facility] Comment on above: Performed By: #### P T #### [facility] [address] [place] [address] Dr. Hugh Landis Urobilinogen Qn (U) 0.2 {Dahiana'U}/dL Normal 0.2 - 1. 0 [facility] Comment on above: Performed By: #### P T #### [facility] [address] [place] [address] Dr. Hugh Landis WBC NONE SEEN Normal NONE SEEN [facility] Comment on above: Performed By: #### P T #### [facility] [address] [place] [address] Dr. Hugh Landis URIC ACID SERUMon 06-11-2022 Urate [Mass/Vol] 7.5 mg/dL Critically high 3.5-7.2 [facility] Comment on above: Performed By: #### P TT #### [facility] [address] [place] [address] Dr. Hugh Landis VITAMIN D 25 OHon 06-11-2022 VIT D 25-OH 35.0 ng/mL Normal [facility] Comment on above: Performed By: #### P T #### [facility] [address] [place] [address] Dr. Hugh Landis VIT D RANGES SEE BELOW Normal [facility] Comment on above: Result Comment: <20 ng/mL Vit D deficient 20 - <30 ng/mL Vit D insufficient 30 - 100 ng/mL Vit D sufficient >100 ng/mL Potential Toxicity Performed By: #### P T #### [facility] [address] [place] [address] Dr. Hugh Landis PROTIMEon 03-15-2022 INR Coag (PPP) [Relative time] 1.11 {INR} Normal [facility] Comment on above: Performed By: #### P T #### [facility] [address] [place] [address] Dr. Hugh Landis INR GUIDELINES SEE BELOW Normal [facility] Comment on above: Result Comment: VIC RED INR: 2.0 - 3.0 CONDITIONS NOT LISTED BELOW 2.5 - 3.5 FOR PROSTHETIC HEART VALVE REPLACEMENT 2.5 - 3.5 RECURRENT THROMBOSIS Performed By: #### P T #### [facility] [address] [place] [address] Dr. Hugh Landis PT Coag (PPP) [Time] 11.7 s Critically high 9.0-11.6 [facility] Comment on above: Performed By: #### P T #### [facility] [address] [place] [address] Dr. Hugh Landis UA (CLEAN/CATCH) PLANT CONTROLLER/MICRO I F IND.on 03-15-2022 Bilirubin Ql (U) Negative Normal NEGATIVE [facility] Comment on above: Performed By: #### P TT #### [facility] [address] [place] [address] Dr. Hugh Landis Clarity (U) CLEAR Normal CLEAR [facility] Comment on above: Performed By: #### P TT #### [facility] [address] [place] [address] Dr. Hugh Landis Color (U) YELLOW Normal YELLOW [facility] Comment on above: Performed By: #### P TT #### [facility] [address] [place] [address] Dr. Hugh Landis Glucose Ql (U) Negative Normal NEGATIVE [facility] Comment on above: Performed By: #### P TT #### [facility] [address] [place] [address] Dr. Hugh Landis Hemoglobin Ql (U) SMALL Abnormal NEGATIVE [facility] Comment on above: Performed By: #### P TT #### [facility] [address] [address] [address] Hugh Landis Ketones Ql (U) Negative Normal NEGATIVE [facility] Comment on above: Performed By: #### P TT #### [facility] [address] [place] [address] Dr. Hugh Landis LEUKOCYTES Negative Normal NEGATIVE [facility] Comment on above: Performed By: #### P TT #### [facility] [address] [place] [address] Dr. Hugh Landis Nitrite Ql (U) Negative Normal NEGATIVE [facility] Comment on above: Performed By: #### P TT #### [facility] [address] [place] [address] Dr. Hugh Landis pH (U) 5.5 [pH] Normal 5-9 [facility] Comment on above: Performed By: #### P TT #### [facility] [address] [place] [address] Dr. Hugh Landis SPEC GRAVITY 1.025 Normal 1.005-<=1.02 5 [facility] Comment on above: Performed By: #### P TT #### [facility] [address] [place] [address] Dr. Hugh Landis UA PROTEIN Negative Normal NEGATIVE/ TRACE [facility] Comment on above: Performed By: #### P TT #### [facility] [address] [place] [address] Dr. Hugh Landis UR MICRO IND INDICATED Normal [facility] Comment on above: Performed By: #### P TT #### [facility] [address] [place] [address] Dr. Hugh Landis Urobilinogen Qn (U) 0.2 {Dahiana'U}/dL Normal 0.2 - 1. 0 [facility] Comment on above: Performed By: #### P TT #### [facility] [address] [place] [address] Dr. Hugh Landis URINE MICROSCOPIC ONLYon BACTERIA TRACE Abnormal NONE SEEN [facility] Comment on above: Performed By: #### P TT #### [facility] [address] [place] [address] Dr. Hugh Landis Bacteria identified Cx Nom (U) NOT INDICATED Normal [facility] Comment on above: Performed By: #### P TT #### [facility] [address] [place] [address] Dr. Hugh Landis CAST NONE SEEN Normal NONE SEEN [facility] Comment on above: Performed By: #### P TT #### [facility] [address] [place] [address] Dr. Hugh Landis Crystals LM Nom (Urine sed) NONE SEEN Normal NONE SEEN [facility] Comment on above: Performed By: #### P TT #### [facility] [address] [place] [address] Dr. Hugh Landis Epithelial cells LM Ql (Urine sed) RARE Normal NONE SEEN /RARE [facility] Comment on above: Performed By: #### P TT #### [facility] [address] [place] [address] Dr. Hugh Landis MUCOUS NONE SEEN Normal NONE SEEN [facility] Comment on above: Performed By: #### P TT #### [facility] [address] [place] [address] Dr. Hugh Landis RBC 0-2 Normal 0-2 [facility] Comment on above: Performed By: #### P TT #### [facility] [address] [place] [address] Dr. Hugh Landis WBC 0-2 Abnormal NONE SEEN [facility] Comment on above: Performed By: #### P TT #### [facility] [address] [place] [address] Dr. Hugh Landis MRSA NARES #1on 03-08-2022 MRSA NARES #1 Culture Observations : NO GROWTH OF MRSA AT 48 HOURS. Normal [facility] Comment on above: Performed By: #### B MP #### [facility] [address] [address] [address] Hugh Landis PROF CHEM 8 (BAS METB)on Anion gap [Moles/Vol] 9.9 mmol/L Normal [facility] Comment on above: Performed By: #### C MP, LIPID, TSH #### [facility] [address] [address] [address] Hugh Landis Calcium [Mass/Vol] 9.4 mg/dL Normal 8.5-10.1 [facility] Comment on above: Performed By: #### C MP, LIPID, TSH #### [facility] [address] [address] [address] Hugh Landis Chloride [Moles/Vol] 103 mmol/L Normal 98-107 [facility] Comment on above: Performed By: #### C MP, LIPID, TSH #### [facility] [address] [place] [address] Dr. Hugh Landis CO2 [Moles/Vol] 31.6 mmol/L Normal 21.0-32.0 [facility] Comment on above: Performed By: #### C MP, LIPID, TSH #### [facility] [address] [address] [address] Hugh Landis Creatinine [Mass/Vol] 1.25 mg/dL Normal 0.70-1.30 [facility] Comment on above: Performed By: #### C MP, LIPID, TSH #### [facility] [address] [place] [address] Dr. Hugh Landis EGFR-AF TAIWANESE >60 Normal >=60 [facility] Comment on above: Performed By: #### C MP, LIPID, TSH #### [facility] [address] [address] [address] Hugh Landis EGFR-NON AF TAIWANESE 59 mL/min/1.73m2 Critically low >=60 [facility] Comment on above: Performed By: #### C MP, LIPID, TSH #### [facility] [address] [address] [address] Hugh Landis Glucose [Mass/Vol] 110 mg/dL Critically high 74-106 [facility] Comment on above: Performed By: #### C MP, LIPID, TSH #### [facility] [address] [place] [address] Dr. Hugh Landis Potassium [Moles/Vol] 3.5 mmol/L Normal 3.5-5.1 [facility] Comment on above: Performed By: #### C MP, LIPID, TSH #### [facility] [address] [place] [address] Dr. Hugh Landis Sodium [Moles/Vol] 141 mmol/L Normal 136-145 [facility] Comment on above: Performed By: #### C MP, LIPID, TSH #### [facility] [address] [place] [address] Dr. Hugh Landis Urea nitrogen [Mass/Vol] 27.0 mg/dL Critically high 7.0-18.0 [facility] Comment on above: Performed By: #### C MP, LIPID, TSH #### [facility] [address] [place] [address] Dr. Hugh Landis Urea nitrogen/Creatinine [Mass ratio] 21.6 mg/mg Normal [facility] Comment on above: Performed By: #### C MP, LIPID, TSH #### [facility] [address] [place] [address] Dr. Hugh Landis PTTon 03-08-2022 aPTT Coag (Bld) [Time] 27.0 s Normal 22.3-36.2 [facility] Comment on above: Performed By: #### P TT #### [facility] [address] [place] [address] Dr. Hugh Landis INSULINon 01-25-2022 Insulin 11.1 uIU/mL Normal 2.6-24.9 [facility] Comment on above: Performed By: #### U TOMAS, TSH, CMP, LIPID, T7 #### [facility] [address] [place] [address] Dr. Hugh Landis CBC AUTO DIFFon 01-24-2022 BASO # 0.1 103/ul Normal 0.0-0.1 [facility] Comment on above: Performed By: #### C MP, LIPID, TSH #### [facility] [address] [place] [address] Dr. Hugh Landis Basophils/100 WBC (Bld) 1.3 % Normal 0.2-2.0 [facility] Comment on above: Performed By: #### C MP, LIPID, TSH #### [facility] [address] [place] [address] Dr. Hugh Landis EO # 0.2 103/ul Normal 0.0-0.7 [facility] Comment on above: Performed By: #### C MP, LIPID, TSH #### [facility] [address] [place] [address] Dr. Hugh Landis Eosinophils/100 WBC (Bld) 4.7 % Normal 0.9-7.0 [facility] Comment on above: Performed By: #### C MP, LIPID, TSH #### [facility] [address] [place] [address] Dr. Hugh Landis Erythrocyte distribution width (RBC) [Ratio] 12.6 % Normal 11.0-15.0 [facility] Comment on above: Performed By: #### C MP, LIPID, TSH #### [facility] [address] [place] [address] Dr. Hugh Landis Hematocrit (Bld) [Volume fraction] 39.1 % Critically low 42.0-54.0 [facility] Comment on above: Performed By: #### C MP, LIPID, TSH #### [facility] [address] [place] [address] Dr. Hugh Landis Hemoglobin (Bld) [Mass/Vol] 12.4 g/dL Critically low 14.0-18.0 [facility] Comment on above: Performed By: #### C MP, LIPID, TSH #### [facility] [address] [place] [address] Dr. Hugh Landis IG # 0.01 10e3/ul Normal 0.00-0.03 [facility] Comment on above: Performed By: #### C MP, LIPID, TSH #### [facility] [address] [place] [address] Dr. Hugh Landis IG % 0.2 % Normal 0.0-0.5 [facility] Comment on above: Performed By: #### C MP, LIPID, TSH #### [facility] [address] [place] [address] Dr. Hugh Landis LYMPH # 0.9 103/ul Critically low 1.2-3.8 [facility] Comment on above: Performed By: #### C MP, LIPID, TSH #### [facility] [address] [place] [address] Dr. Hugh Landis Lymphocytes/100 WBC (Bld) 19.4 % Critically low 20.5-60.0 [facility] Comment on above: Performed By: #### C MP, LIPID, TSH #### [facility] [address] [place] [address] Dr. Hugh Landis MANUAL DIFF REQ NO Normal [facility] Comment on above: Performed By: #### C MP, LIPID, TSH #### [facility] [address] [place] [address] Dr. Hugh Landis MCH (RBC) [Entitic mass] 29.2 pg Normal 25.9-34.0 [facility] Comment on above: Performed By: #### C MP, LIPID, TSH #### [facility] [address] [place] [address] Dr. Hugh Landis MCHC (RBC) [Mass/Vol] 31.7 g/dL Normal 29.9-35.2 [facility] Comment on above: Performed By: #### C MP, LIPID, TSH #### [facility] [address] [place] [address] Dr. Hugh Landis MCV (RBC) [Entitic vol] 92.0 fL Normal 80.0-94.0 [facility] Comment on above: Performed By: #### C MP, LIPID, TSH #### [facility] [address] [place] [address] Dr. Hugh Landis MONO # 0.5 103/ul Normal 0.3-0.8 [facility] Comment on above: Performed By: #### C MP, LIPID, TSH #### [facility] [address] [address] [address] Hugh Landis Monocytes/100 WBC (Bld) 9.6 % Normal 1.7-12.0 [facility] Comment on above: Performed By: #### C MP, LIPID, TSH #### [facility] [address] [address] [address] Hugh Landis NEUT # 3.0 103/ul Normal 1.4-6.5 [facility] Comment on above: Performed By: #### C MP, LIPID, TSH #### [facility] [address] [place] [address] Dr. Hugh Landis Neutrophils/100 WBC (Bld) 64.8 % Normal 43.0-75.0 [facility] Comment on above: Performed By: #### C MP, LIPID, TSH #### [facility] [address] [place] [address] Dr. Hugh Landis Platelet mean volume (Bld) [Entitic vol] 9.4 fL Critically low 9.5-13.5 [facility] Comment on above: Performed By: #### C MP, LIPID, TSH #### [facility] [address] [place] [address] Dr. Hugh Landis PLT 232 103/ul Normal 150-450 [facility] Comment on above: Performed By: #### C MP, LIPID, TSH #### [facility] [address] [place] [address] Dr. Hugh Landis RBC 4.25 106/ul Critically low 4.70-6.10 [facility] Comment on above: Performed By: #### C MP, LIPID, TSH #### [facility] [address] [place] [address] Dr. Hugh Landis WBC 4.7 103/ul Normal 4.0-11.0 [facility] Comment on above: Performed By: #### C MP, LIPID, TSH #### [facility] [address] [place] [address] Dr. Hugh Landis FREE THYROXINE INDEX T7on FTI 2.65 Normal 1.30-4.50 [facility] Comment on above: Performed By: #### B MP #### [facility] [address] [address] [address] Hugh Landis T3U 34.0 % Normal 33.0-40.0 [facility] Comment on above: Performed By: #### B MP #### [facility] [address] [address] [address] Hugh Landis T4 [Mass/Vol] 7.80 ug/dL Normal 4.50-12.[address] [facility] Comment on above: Performed By: #### B MP #### [facility] [address] [place] [address] Dr. Hugh Landis GLYCOHEMOGLOBIN A1Con 2021 ADA RECOMMENDATION SEE BELOW Normal [facility] Comment on above: Result Comment: ADA RECOMMENDED LIMIT 4.0 - 6.0 ADA THERAPEUTIC TARGET < 7.0 ACTION SUGGESTED > 7.0 Performed By: #### C MP, LIPID, TSH #### [facility] [address] [place] [address] Dr. Hugh Landis Glucose [Mass/Vol] 123 mg/dL Normal [facility] Comment on above: Performed By: #### C MP, LIPID, TSH #### [facility] [address] [place] [address] Dr. Hugh Landis HbA1c (Bld) [Mass fraction] 5.9 % Normal 4.5-6.2 [facility] Comment on above: Performed By: #### C MP, LIPID, TSH #### [facility] [address] [place] [address] Dr. Hugh Landis LIPID PROFILEon 01-24-2022 CHOL-HDL RATIO NORM SEE BELOW Normal [facility] Comment on above: Result Comment: 3.3 - 4.4 LOW RISK 4.4 - 7.1 AVERAGE RISK 7.1 - 11.0 MODERATE RISK >11.0 HIGH RISK Performed By: #### U TOMAS, TSH, CMP, LIPID, T7 #### [facility] [address] [place] [address] Dr. Hugh Landis Cholesterol [Mass/Vol] 179 mg/dL Normal <=200 [facility] Comment on above: Performed By: #### U TOMAS, TSH, CMP, LIPID, T7 #### [facility] [address] [address] [address] Hugh Landis Cholesterol in HDL [Mass/Vol] 46 mg/dL Normal 40-60 [facility] Comment on above: Performed By: #### U TOMAS, TSH, CMP, LIPID, T7 #### [facility] [address] [address] [address] Hugh Landis Cholesterol in LDL [Mass/Vol] 100.4 mg/dL Normal [facility] Comment on above: Performed By: #### U TOMAS, TSH, CMP, LIPID, T7 #### [facility] [address] [address] [address] Hugh Landis Cholesterol.total/Ch olesterol in HDL [Mass ratio] 3.9 {ratio} Normal [facility] Comment on above: Performed By: #### U TOMAS, TSH, CMP, LIPID, T7 #### [facility] [address] [address] [address] Hugh Landis HDL NORMAL > or = 60 mg/dl - LO W CARDIOVASCULAR RISK <40 mg/dl - HIGH CARDIOVASCULAR RISK Normal [facility] Comment on above: Performed By: #### U TOMAS, TSH, CMP, LIPID, T7 #### [facility] [address] [address] [address] Hugh Landis LDL CALC NORMAL SEE BELOW Normal [facility] Comment on above: Result Comment: <100 mg/dl OPTIMAL 100 - 129 mg/dl NEAR OR ABOVE OPTIMAL 130 - 159 mg/dl BORDERLINE HIGH 160 - 189 mg/dl HIGH >190 mg/dl VERY HIGH Performed By: #### U TOMAS, TSH, CMP, LIPID, T7 #### [facility] [address] [address] [address] Hugh Landis Triglyceride [Mass/Vol] 163 mg/dL Critically high <=150 [facility] Comment on above: Performed By: #### U TOMAS, TSH, CMP, LIPID, T7 #### [facility] [address] [address] [address] Hugh Landis VLDL CALC 32.6 mg/dL Normal [facility] Comment on above: Performed By: #### U TOMAS, TSH, CMP, LIPID, T7 #### [facility] [address] [address] [address] Hugh Landis PROF 14(COMP METB)on 022 Albumin [Mass/Vol] 3.6 g/dL Normal 3.4-5.0 [facility] Comment on above: Performed By: #### U TOMAS, TSH, CMP, LIPID, T7 #### [facility] [address] [address] [address] Hugh Landis Albumin/Globulin [Mass ratio] 0.9 {ratio} Normal [facility] Comment on above: Performed By: #### U TOMAS, TSH, CMP, LIPID, T7 #### [facility] [address] [place] [address] Dr. Hugh Landis ALP [Catalytic activity/Vol] 81 U/L Normal 46-116 [facility] Comment on above: Performed By: #### U TOMAS, TSH, CMP, LIPID, T7 #### [facility] [address] [address] [address] Hugh Landis ALT [Catalytic activity/Vol] 19 U/L Normal 16-63 [facility] Comment on above: Performed By: #### U TOMAS, TSH, CMP, LIPID, T7 #### [facility] [address] [address] [address] Hugh Landis Anion gap [Moles/Vol] 13.4 mmol/L Normal [facility] Comment on above: Performed By: #### U TOMAS, TSH, CMP, LIPID, T7 #### [facility] [address] [address] [address] Hugh Landis AST [Catalytic activity/Vol] 16 U/L Normal 15-37 [facility] Comment on above: Performed By: #### U TOMAS, TSH, CMP, LIPID, T7 #### [facility] [address] [address] [address] Hugh Landis Bilirubin [Mass/Vol] 0.5 mg/dL Normal 0.2-1.0 [facility] Comment on above: Performed By: #### U TOMAS, TSH, CMP, LIPID, T7 #### [facility] [address] [address] [address] Hugh Landis Calcium [Mass/Vol] 9.7 mg/dL Normal 8.5-10.1 [facility] Comment on above: Performed By: #### U TOMAS, TSH, CMP, LIPID, T7 #### [facility] [address] [address] [address] Hugh Landis Chloride [Moles/Vol] 105 mmol/L Normal 98-107 [facility] Comment on above: Performed By: #### U TOMAS, TSH, CMP, LIPID, T7 #### [facility] [address] [address] [address] Hugh Landis CO2 [Moles/Vol] 27.4 mmol/L Normal 21.0-32.0 [facility] Comment on above: Performed By: #### U TOMAS, TSH, CMP, LIPID, T7 #### [facility] [address] [address] [address] Hugh Landis Creatinine [Mass/Vol] 1.37 mg/dL Critically high 0.70-1.30 [facility] Comment on above: Performed By: #### U TOMAS, TSH, CMP, LIPID, T7 #### [facility] [address] [place] [address] Dr. Hugh Landis EGFR-AF TAIWANESE >60 Normal >=60 [facility] Comment on above: Performed By: #### U TOMAS, TSH, CMP, LIPID, T7 #### [facility] [address] [address] [address] Hugh Landis EGFR-NON AF TAIWANESE 53 mL/min/1.73m2 Critically low >=60 [facility] Comment on above: Performed By: #### U OTMAS, TSH, CMP, LIPID, T7 #### [facility] [address] [address] [address] Hugh Landis Globulin (S) [Mass/Vol] 4.0 g/dL Normal [facility] Comment on above: Performed By: #### U TOMAS, TSH, CMP, LIPID, T7 #### [facility] [address] [address] [address] Hugh Landis Glucose [Mass/Vol] 113 mg/dL Critically high 74-106 [facility] Comment on above: Performed By: #### U TOMAS, TSH, CMP, LIPID, T7 #### [facility] [address] [place] [address] Dr. Hugh Landis Potassium [Moles/Vol] 3.8 mmol/L Normal 3.5-5.1 [facility] Comment on above: Performed By: #### U TOMAS, TSH, CMP, LIPID, T7 #### [facility] [address] [address] [address] Hugh Landis Protein [Mass/Vol] 7.6 g/dL Normal 6.4-8.2 [facility] Comment on above: Performed By: #### U TOMAS, TSH, CMP, LIPID, T7 #### [facility] [address] [place] [address] Dr. Hugh Landis Sodium [Moles/Vol] 142 mmol/L Normal 136-145 [facility] Comment on above: Performed By: #### U TOMAS, TSH, CMP, LIPID, T7 #### [facility] [address] [address] [address] Hugh Landis Urea nitrogen [Mass/Vol] 21.0 mg/dL Critically high 7.0-18.0 [facility] Comment on above: Performed By: #### U TOMAS, TSH, CMP, LIPID, T7 #### [facility] [address] [place] [address] Dr. Hugh Landis Urea nitrogen/Creatinine [Mass ratio] 15.3 mg/mg Normal [facility] Comment on above: Performed By: #### U TOMAS, TSH, CMP, LIPID, T7 #### [facility] [address] [place] [address] Dr. Hugh Landis TSHon 01-24-2022 TSH 0.663 uIU/mL Normal 0.358-3.[address] [facility] Comment on above: Performed By: #### U TOMAS, TSH, CMP, LIPID, T7 #### [facility] [address] [place] [address] Dr. Hugh Landis URIC ACID SERUMon 01-24-2022 Urate [Mass/Vol] 6.9 mg/dL Normal 3.5-7.2 [facility] Comment on above: Performed By: #### B MP #### [facility] [address] [place] [address] Dr. Hugh Landis VITAMIN D 25 OHon 01-24-2022 VIT D 25-OH 37.0 ng/mL Normal [facility] Comment on above: Performed By: #### P TT #### [facility] [address] [place] [address] Dr. Hugh Landis VIT D RANGES SEE BELOW Normal [facility] Comment on above: Result Comment: <20 ng/mL Vit D deficient 20 - <30 ng/mL Vit D insufficient 30 - 100 ng/mL Vit D sufficient >100 ng/mL Potential Toxicity Performed By: #### P TT #### [facility] [address] [place] [address] Dr. Hugh Landis US KIDNEYSon 12-21-2021 US [...] by: OBIE TSE Date: 2021-12-21 17:34 Normal [facility] XR ABD FLAT UP_PA Brarett 12-21 XR ABD FLAT UP_PA CH EXAMINATION: [...] by: AUSTIN LARIOS Date: 2021-12-21 18:13 Normal [facility] Urine culture routineOrdered By: Estephanie Lowry on 12-17-2021 Bacteria identified Cx Nom (U) No Growth 2 Days [facility] Chlamydia trachomatis DNA [P resence] in Specimen by MUKUL with probe detectionOrdered By: Estephanie Lowry on 12-15-2021 C. trachomatis DNA MUKUL+probe Ql (Unsp spec) Negative Negative [facility] Chlamydia/GC/Trich NAAon Chlamydia Trachomotis, MUKUL Negative Normal Negative [facility] Comment on above: Order Comment: Reaso n for Exam Dysuria Performed By: #### G CCHLAMTRI #### [facility] , #### CUU #### [facility] [address] [place] [address] [place] Neisseria Gonorrhoeae, MUKUL Negative Normal Negative [facility] Comment on above: Order Comment: Reaso n for Exam Dysuria Performed By: #### G CCHLAMTRI #### [facility] , #### CUU #### [facility] [address] [place] [address] [place] Trichomonas MUKUL Negative Normal Negative [facility] Comment on above: Order Comment: Reaso n for Exam Dysuria Result Comment: Perf ormed at: =G - [facility] [address] [id number] Research And Development Engineer: Shoshana Camargo MD, Phone: [phone] PERFORMED BY: [place] [address] PATHOLOGIST GENERAL UTILITY WORKER SABRA SAUNDERS M.D. Performed By: #### G CCHLAMTRI #### [facility] , #### CUU #### [address] Chlamydia/GC/Trich MUKUL Negative Negative [employer] Other Neisseria gonorrhoeae DNA [P resence] in Specimen by MUKUL with probe detectionOrdered By: Estephanie Lowry on 12-15-2021 N. gonorrhoeae DNA MUKUL+probe Ql (Unsp spec) Negative Negative [facility] Trichomonas vaginalis DNA [P resence] in Specimen by MUKUL with probe detectionOrdered By: Estephanie Lowry on 12-15-2021 T. vaginalis DNA MUKUL+probe Ql (Unsp spec) Negative Negative [facility] Comment on above: Performed at: = - [facility] [address] [id number] Director: Shoshana Camargo MD, Phone: [phone] Urinalysis - AUTOMATEDon Appearance (U) clear [employer] Other Bilirubin Ql (U) Negative [employer] Other Color (U) orange [employer] Other Glucose Ql (U) Negative [employer] Other Hemoglobin Ql (U) moderate [facility] Other Ketones Ql (U) Negative [employer] Other Leukocyte esterase Test strip Ql (U) Negative [employer] [facility] Other Nitrite Ql (U) Positive [employer] Other pH (U) 5.5 [pH] [employer] Other Protein Ql (U) Negative [employer] Other Specific gravity (U) [Rel density] 1.015 [facility] Other Urobilinogen (U) [Mass/Vol] 0.2 mg/dL [employer] Other Urinalysis - AUTOMATED [employer] Other Urine Cultureon 12-15-2021 Bacteria identified Cx Nom (U) Reason for Exam Dysuria Urine No Growth 2 Days PERFORMED BY: [place] [address] PATHOLOGIST GENERAL UTILITY WORKER SABRA SAUNDERS M.D. Normal [facility] Comment on above: Performed By: #### G CCHLAMTRI #### [facility] , #### CUU #### [facility] [address] [place] [address] Bacteria identified Cx Nom (U) [employer] Other CULTURE URINEon 11-24-2021 CULTURE URINE Culture Observations : NO GROWTH. Normal [facility] Comment on above: Performed By: #### B MP #### [facility] [address] [place] [address] Dr. Hugh Landis PROTEIN ELECTROPHERESIS URIN E RANDOMon 11-17-2021 Albumin, U 33.4 % Normal [facility] Comment on above: Performed By: #### C MP, LIPID, TSH #### [facility] [address] [address] [address] Hugh Landis Alpha-1 Globulin U 4.7 % Normal [facility] Comment on above: Performed By: #### C MP, LIPID, TSH #### [facility] [address] [address] [address] Hugh Landis Alpha-2 Glubulin U 18.6 % Normal [facility] Comment on above: Performed By: #### C MP, LIPID, TSH #### [facility] [address] [address] [address] Hugh Landis Beta Globulin, U 19.9 % Normal [facility] Comment on above: Performed By: #### C MP, LIPID, TSH #### [facility] [address] [place] [address] Dr. Hugh Landis Gamma Globulin U 23.4 % Normal [facility] Comment on above: Performed By: #### C MP, LIPID, TSH #### [facility] [address] [place] [address] Dr. Hugh Landis M-Tariq, % Not Observed Normal Not Observed [facility] Comment on above: Performed By: #### C MP, LIPID, TSH #### [facility] [address] [place] [address] Dr. Hugh Landis PDF . Normal [facility] Comment on above: Performed By: #### C MP, LIPID, TSH #### [facility] [address] [place] [address] Dr. Hugh Landis Please note: Comment Normal [facility] Comment on above: Result Comment: Prot ein electrophoresis scan will follow via computer, mail, or floorleader delivery. Performed By: #### C MP, LIPID, TSH #### [facility] [address] [place] [address] Dr. Hugh Landis Protein (U) [Mass/Vol] 4.9 mg/dL Normal Not Estab. [facility] Comment on above: Performed By: #### C MP, LIPID, TSH #### [facility] [address] [place] [address] Dr. Hugh Landis IMMUNOFIXATION(PRINCE),PROTEIN ELEC(PE),FREon 11-16-2021 Albumin [Mass/Vol] 3.4 g/dL Normal 2.9-4.4 [facility] Comment on above: Performed By: #### C MP, LIPID, TSH #### [facility] [address] [place] [address] Dr. Hugh Landis Albumin/Globulin [Mass ratio] 1.0 {ratio} Normal 0.7-1.7 [facility] Comment on above: Performed By: #### C MP, LIPID, TSH #### [facility] [address] [address] [address] Hugh Landis Mtcaz-3-Dstkzmgb 0.2 g/dL Normal 0.0-0.4 [facility] Comment on above: Performed By: #### C MP, LIPID, TSH #### [facility] [address] [address] [address] Hugh Landis Ophhs-0-Sumpgscs 1.1 g/dL Critically high 0.4-1.0 [facility] Comment on above: Performed By: #### C MP, LIPID, TSH #### [facility] [address] [address] [address] Hugh Landis Beta Globulin 1.0 g/dL Normal 0.7-1.3 [facility] Comment on above: Performed By: #### C MP, LIPID, TSH #### [facility] [address] [address] [address] Hugh Landis Free Alba Lt Chains,S 35.7 mg/L Critically high 3.3-19.4 [facility] Comment on above: Performed By: #### C MP, LIPID, TSH #### [facility] [address] [address] [address] Hugh Landis Free Lambda Lt Chains,S 21.1 mg/L Normal 5.7-26.3 [facility] Comment on above: Performed By: #### C MP, LIPID, TSH #### [facility] [address] [address] [address] Hugh Landis Gamma Globulin 1.2 g/dL Normal 0.4-1.8 [facility] Comment on above: Performed By: #### C MP, LIPID, TSH #### [facility] [address] [address] [address] Hugh Landis Globulin (S) [Mass/Vol] 3.5 g/dL Normal 2.2-3.9 [facility] Comment on above: Performed By: #### C MP, LIPID, TSH #### [facility] [address] [address] [address] Hugh Landis Immunofixation Result, Serum Comment Normal [facility] Comment on above: Result Comment: No m onoclonality detected. Performed By: #### C MP, LIPID, TSH #### [facility] [address] [address] [address] Hugh Landis Immunoglobulin A, Qn, Serum 228 mg/dL Normal 90-386 [facility] Comment on above: Performed By: #### C MP, LIPID, TSH #### [facility] [address] [address] [address] Hugh Landis Immunoglobulin G, Qn, Serum 1221 mg/dL Normal 603-1613 [facility] Comment on above: Performed By: #### C MP, LIPID, TSH #### [facility] [address] [address] [address] Hugh Landis Immunoglobulin M, Qn, Serum 79 mg/dL Normal 20-172 [facility] Comment on above: Performed By: #### C MP, LIPID, TSH #### [facility] [address] [address] [address] Hugh Landis Alba/Lambda Ratio, S 1.69 Critically high 0.26-1.65 [facility] Comment on above: Performed By: #### C MP, LIPID, TSH #### [facility] [address] [address] [address] Hugh Landis M-Tariq Not Observed Normal Not Observed [facility] Comment on above: Performed By: #### C MP, LIPID, TSH #### [facility] [address] [address] [address] Hugh Landis PDF . Normal [facility] Comment on above: Performed By: #### C MP, LIPID, TSH #### [facility] [address] [address] [address] Hugh Landis Please note: Comment Normal [facility] Comment on above: Result Comment: Prot ein electrophoresis scan will follow via computer, mail, or floorleader delivery. Performed By: #### C MP, LIPID, TSH #### [facility] [address] [address] [address] Hugh Landis Protein [Mass/Vol] 6.9 g/dL Normal 6.0-8.5 [facility] Comment on above: Performed By: #### C MP, LIPID, TSH #### [facility] [address] [place] [address] Dr. Hugh Landis PROTEIN AND CREA RANDOM UR R ATIOon 11-16-2021 Creatinine, Urine 54.8 mg/dL Normal Not Estab. [facility] Comment on above: Performed By: #### C MP, LIPID, TSH #### [facility] [address] [place] [address] Dr. Hugh Landis Protein (U) [Mass/Vol] 4.1 mg/dL Normal Not Estab. [facility] Comment on above: Performed By: #### C MP, LIPID, TSH #### [facility] [address] [place] [address] Dr. Hugh Landis Protein/Creat Ratio 75 mg/g creat Normal 0-200 [facility] Comment on above: Performed By: #### C MP, LIPID, TSH #### [facility] [address] [place] [address] Dr. Hugh Landis PTH INTACTon 11-15-2021 PTH, Intact 39 pg/mL Normal 15-65 [facility] Comment on above: Performed By: #### P T #### [facility] [address] [place] [address] Dr. Hugh Landis UA RANDOM W/MICROSCOPICon BACTERIA NONE SEEN Normal NONE SEEN [facility] Comment on above: Performed By: #### P TT #### [facility] [address] [place] [address] Dr. Hugh Landis Bilirubin Ql (U) Negative Normal NEGATIVE [facility] Comment on above: Performed By: #### P TT #### [facility] [address] [place] [address] Dr. Hugh Landis CAST NONE SEEN Normal NONE SEEN [facility] Comment on above: Performed By: #### P TT #### [facility] [address] [place] [address] Dr. Hugh Landis Clarity (U) CLEAR Normal CLEAR [facility] Comment on above: Performed By: #### P TT #### [facility] [address] [place] [address] Dr. Hugh Landis Color (U) LT. YELLOW Normal YELLOW [facility] Comment on above: Performed By: #### P TT #### [facility] [address] [address] [address] Hugh Landis Crystals LM Nom (Urine sed) NONE SEEN Normal NONE SEEN [facility] Comment on above: Performed By: #### P TT #### [facility] [address] [place] [address] Dr. Hugh Landis Epithelial cells LM Ql (Urine sed) NONE SEEN Normal NONE SEEN /RARE [facility] Comment on above: Performed By: #### P TT #### [facility] [address] [place] [address] Dr. Hugh Landis Glucose Ql (U) Negative Normal NEGATIVE [facility] Comment on above: Performed By: #### P TT #### [facility] [address] [place] [address] Dr. Hugh Landis Hemoglobin Ql (U) MODERATE Abnormal NEGATIVE [facility] Comment on above: Performed By: #### P TT #### [facility] [address] [place] [address] Dr. Hugh Landsi Ketones Ql (U) Negative Normal NEGATIVE [facility] Comment on above: Performed By: #### P TT #### [facility] [address] [place] [address] Dr. Hugh Landis LEUKOCYTES Negative Normal NEGATIVE [facility] Comment on above: Performed By: #### P TT #### [facility] [address] [place] [address] Dr. Hugh Landis MUCOUS NONE SEEN Normal NONE SEEN [facility] Comment on above: Performed By: #### P TT #### [facility] [address] [place] [address] Dr. Hugh Landis Nitrite Ql (U) Negative Normal NEGATIVE [facility] Comment on above: Performed By: #### P TT #### [facility] [address] [place] [address] Dr. Hugh Landis pH (U) 5.5 [pH] Normal 5-9 [facility] Comment on above: Performed By: #### P TT #### [facility] [address] [place] [address] Dr. Hugh Landis RBC 5-10 Abnormal 0-2 [facility] Comment on above: Performed By: #### P TT #### [facility] [address] [place] [address] Dr. Hugh Landis SPEC GRAVITY 1.010 Normal 1.005-<=1.02 5 [facility] Comment on above: Performed By: #### P TT #### [facility] [address] [place] [address] Dr. Hugh Landis UA PROTEIN Negative Normal NEGATIVE/ TRACE [facility] Comment on above: Performed By: #### P TT #### [facility] [address] [place] [address] Dr. Hugh Landis Urobilinogen Qn (U) 0.2 {Dahiana'U}/dL Normal 0.2 - 1. 0 [facility] Comment on above: Performed By: #### P TT #### [facility] [address] [place] [address] Dr. Hugh Landis WBC 0-2 Abnormal NONE SEEN [facility] Comment on above: Performed By: #### P TT #### [facility] [address] [place] [address] Dr. Hugh Landis URINE T PROTEIN CREAT RATIOo n 11-15-2021 Protein (U) [Mass/Vol] 10.0 mg/dL Normal <=12.0 [facility] Comment on above: Performed By: #### B MP #### [facility] [address] [place] [address] Dr. Hugh Landis UR PROT CREAT RAT 0.18 Normal [facility] Comment on above: Performed By: #### B MP #### [facility] [address] [place] [address] Dr. Hugh Landis URINE CREAT 57.11 mg/dL Normal 20.00-300.00 [facility] Comment on above: Performed By: #### B MP #### [facility] [address] [address] [address] Hugh Landis FERRITINon 11-14-2021 Ferritin [Mass/Vol] 95.0 ng/mL Normal 26.0-388.0 [facility] Comment on above: Performed By: #### C MP, LIPID, TSH #### [facility] [address] [address] [address] Hugh Landis HEMOGRAM AND PLATELon 2021 Hematocrit (Bld) [Volume fraction] 35.7 % Critically low 42.0-54.0 [facility] Comment on above: Performed By: #### U TOMAS, TSH, CMP, LIPID, T7 #### [facility] [address] [address] [address] Hugh Landis Hemoglobin (Bld) [Mass/Vol] 11.5 g/dL Critically low 14.0-18.0 [facility] Comment on above: Performed By: #### U TOMAS, TSH, CMP, LIPID, T7 #### [facility] [address] [address] [address] Hugh Landis MCH (RBC) [Entitic mass] 30.3 pg Normal 25.9-34.0 [facility] Comment on above: Performed By: #### U TOMAS, TSH, CMP, LIPID, T7 #### [facility] [address] [place] [address] Dr. Hugh Landis MCHC (RBC) [Mass/Vol] 32.2 g/dL Normal 29.9-35.2 [facility] Comment on above: Performed By: #### U TOMAS, TSH, CMP, LIPID, T7 #### [facility] [address] [address] [address] Hugh Landis MCV (RBC) [Entitic vol] 93.9 fL Normal 80.0-94.0 [facility] Comment on above: Performed By: #### U TOMAS, TSH, CMP, LIPID, T7 #### [facility] [address] [address] [address] Hugh Landis PLT 254 103/ul Normal 150-450 [facility] Comment on above: Performed By: #### U TOMAS, TSH, CMP, LIPID, T7 #### [facility] [address] [address] [address] Hugh Landis RBC 3.80 106/ul Critically low 4.70-6.10 [facility] Comment on above: Performed By: #### U TOMAS, TSH, CMP, LIPID, T7 #### [facility] [address] [address] [address] Hugh Landis WBC 6.4 103/ul Normal 4.0-11.0 [facility] Comment on above: Performed By: #### U TOMAS, TSH, CMP, LIPID, T7 #### [facility] [address] [place] [address] Dr. Hugh Landis IRON AND TIBCon 11-14-2021 % SATURATION 27.6 % Normal [facility] Comment on above: Performed By: #### C MP, LIPID, TSH #### [facility] [address] [address] [address] Hugh Landis Iron [Mass/Vol] 68.0 ug/dL Normal 65.0-175.0 [facility] Comment on above: Performed By: #### C MP, LIPID, TSH #### [facility] [address] [place] [address] Dr. Hugh Landis TIBC DIRECT 246.0 ug/dL Critically low 250.0-450.0 [facility] Comment on above: Performed By: #### C MP, LIPID, TSH #### [facility] [address] [place] [address] Dr. Hugh Landis MAGNESIUMon 11-14-2021 Magnesium [Mass/Vol] 1.8 mg/dL Normal 1.8-2.4 [facility] Comment on above: Performed By: #### U TOMAS, TSH, CMP, LIPID, T7 #### [facility] [address] [place] [address] Dr. Hugh Landis RENAL FUNCTION PANELon 11-14 Albumin [Mass/Vol] 3.4 g/dL Normal 3.4-5.0 [facility] Comment on above: Performed By: #### U TOMAS, TSH, CMP, LIPID, T7 #### [facility] [address] [address] [address] Hugh Landis Calcium [Mass/Vol] 9.1 mg/dL Normal 8.5-10.1 [facility] Comment on above: Performed By: #### U TOMAS, TSH, CMP, LIPID, T7 #### [facility] [address] [address] [address] Hugh Landis Chloride [Moles/Vol] 105 mmol/L Normal 98-107 [facility] Comment on above: Performed By: #### U TOMAS, TSH, CMP, LIPID, T7 #### [facility] [address] [address] [address] Hugh Landis CO2 [Moles/Vol] 29.2 mmol/L Normal 21.0-32.0 [facility] Comment on above: Performed By: #### U TOMAS, TSH, CMP, LIPID, T7 #### [facility] [address] [address] [address] Hugh Landis Creatinine [Mass/Vol] 1.62 mg/dL Critically high 0.70-1.30 [facility] Comment on above: Performed By: #### U TOMAS, TSH, CMP, LIPID, T7 #### [facility] [address] [address] [address] Hugh Landis EGFR-AF TAIWANESE 53 mL/min/1.73m2 Critically low >=60 [facility] Comment on above: Performed By: #### U TOMAS, TSH, CMP, LIPID, T7 #### [facility] [address] [address] [address] Hugh Landis EGFR-NON AF TAIWANESE 44 mL/min/1.73m2 Critically low >=60 [facility] Comment on above: Performed By: #### U TOMAS, TSH, CMP, LIPID, T7 #### [facility] [address] [address] [address] Hugh Landis Glucose [Mass/Vol] 136 mg/dL Critically high 74-106 [facility] Comment on above: Performed By: #### U TOMAS, TSH, CMP, LIPID, T7 #### [facility] [address] [address] [address] Hugh Landis Phosphate [Mass/Vol] 2.8 mg/dL Normal 2.6-4.7 [facility] Comment on above: Performed By: #### U TOMAS, TSH, CMP, LIPID, T7 #### [facility] [address] [address] [address] Hugh Landis Potassium [Moles/Vol] 3.1 mmol/L Critically low 3.5-5.1 [facility] Comment on above: Performed By: #### U TOMAS, TSH, CMP, LIPID, T7 #### [facility] [address] [address] [address] Hugh Landis Sodium [Moles/Vol] 141 mmol/L Normal 136-145 [facility] Comment on above: Performed By: #### U TOMAS, TSH, CMP, LIPID, T7 #### [facility] [address] [address] [address] Hugh Landis Urea nitrogen [Mass/Vol] 19.0 mg/dL Critically high 7.0-18.0 [facility] Comment on above: Performed By: #### U TOMAS, TSH, CMP, LIPID, T7 #### [facility] [address] [address] [address] Hugh Landis URIC ACID SERUMon 11-14-2021 Urate [Mass/Vol] 8.7 mg/dL Critically high 3.5-7.2 [facility] Comment on above: Performed By: #### U TOMAS, TSH, CMP, LIPID, T7 #### [facility] [address] [address] [address] Hugh Landis VIT B12 AND FOLATEon 022 Cobalamin (Vitamin B12) [Mass/Vol] 373.0 pg/mL Normal 193.0-986.0 [facility] Comment on above: Performed By: #### U TOMAS, TSH, CMP, LIPID, T7 #### [facility] [address] [place] [address] Dr. Hugh Landis FOLATE 14.00 ng/mL Normal 8.60-58.90 [facility] Comment on above: Performed By: #### U TOMAS, TSH, CMP, LIPID, T7 #### [facility] [address] [place], [place] [address] Dr. Hugh Landis VITAMIN D 25 OHon 11-14-2021 VIT D 25-OH 33.8 ng/mL Normal [facility] Comment on above: Performed By: #### U TOMAS, TSH, CMP, LIPID, T7 #### [facility] [address] [address] [address] Hugh Landis VIT D RANGES SEE BELOW Normal [facility] Comment on above: Result Comment: <20 ng/mL Vit D deficient 20 - <30 ng/mL Vit D insufficient 30 - 100 ng/mL Vit D sufficient >100 ng/mL Potential Toxicity Performed By: #### U TOMAS, TSH, CMP, LIPID, T7 #### [facility] [address] [place], [place] [address] Dr. Hugh Landis US KIDNEYS BLADDERon 022 [...] AUSTIN LARIOS Date: 2021-11-01 16:44 Normal [facility] [place] [facility] XR CHEST 2 Von 11-01-2021 XR [...] by: OBIE TSE Date: 2021-11-01 06:51 Normal [facility] LUNG VENT_PERFon 11-01-19 22 NM LUNG VENT_PERF EXAM: MI LUNG VENT_PERF HISTORY: Dyspnea COMPARISON: Chest x-ray 10/31/2021 TECHNIQUE: 6.1 mCi technetium MAA. 24.9 mCi technetium DTPA. FINDINGS: Perfusion images demonstrate no segmental perfusion defects to suggest acute pulmonary embolism Ventilation images are normal without ventilation defects. IMPRESSION: Normal ventilation/perfusion scan Electronically authenticated by: JASPER SCHRADER Date: 2021-10-31 12:35 Normal [facility] PROF CHEM 8 (BAS METB)on Anion gap [Moles/Vol] 17.5 mmol/L Normal [facility] Comment on above: Performed By: #### B MP #### [facility] [address] [address] [address] Hugh Landis Calcium [Mass/Vol] 9.4 mg/dL Normal 8.5-10.1 [facility] Comment on above: Performed By: #### B MP #### [facility] [address] [address] [address] Hugh Landis Chloride [Moles/Vol] 100 mmol/L Normal 98-107 [facility] Comment on above: Performed By: #### B MP #### [facility] [address] [address] [address] Hugh Landis CO2 [Moles/Vol] 22.8 mmol/L Normal 21.0-32.0 [facility] Comment on above: Performed By: #### B MP #### [facility] [address] [address] [address] Hugh Landis Creatinine [Mass/Vol] 2.69 mg/dL Critically high 0.70-1.30 [facility] Comment on above: Performed By: #### B MP #### [facility] [address] [address] [address] Hugh Landis EGFR-AF TAIWANESE 30 mL/min/1.73m2 Critically low >=60 [facility] Comment on above: Performed By: #### B MP #### [facility] [address] [address] [address] Hugh Landis EGFR-NON AF TAIWANESE 24 mL/min/1.73m2 Critically low >=60 [facility] Comment on above: Performed By: #### B MP #### [facility] [address] [address] [address] Hugh Landis Glucose [Mass/Vol] 117 mg/dL Critically high 74-106 [facility] Comment on above: Performed By: #### B MP #### [facility] [address] [address] [address] Hugh Landis Potassium [Moles/Vol] 4.3 mmol/L Normal 3.5-5.1 [facility] Comment on above: Performed By: #### B MP #### [facility] [address] [address] [address] Hugh Landis Sodium [Moles/Vol] 136 mmol/L Normal 136-145 [facility] Comment on above: Performed By: #### B MP #### [facility] [address] [address] [address] Hugh Landis Urea nitrogen [Mass/Vol] 41.0 mg/dL Critically high 7.0-18.0 [facility] Comment on above: Performed By: #### B MP #### [facility] [address] [address] [address] Hugh Landis Urea nitrogen/Creatinine [Mass ratio] 15.2 mg/mg Normal [facility] Comment on above: Performed By: #### B MP #### [facility] [address] [address] [address] Hugh Landis CBC AUTO DIFFon 10-16-2021 BASO # 0.0 103/ul Normal 0.0-0.1 [facility] Comment on above: Performed By: #### P T #### [facility] [address] [address] [address] Hugh Landis Basophils/100 WBC (Bld) 0.6 % Normal 0.2-2.0 [facility] Comment on above: Performed By: #### P T #### [facility] [address] [address] [address] Hugh Landis EO # 0.2 103/ul Normal 0.0-0.7 [facility] Comment on above: Performed By: #### P T #### [facility] [address] [address] [address] Hugh Landis Eosinophils/100 WBC (Bld) 2.3 % Normal 0.9-7.0 [facility] Comment on above: Performed By: #### P T #### [facility] [address] [place] [address] Dr. Hugh Landis Erythrocyte distribution width (RBC) [Ratio] 12.7 % Normal 11.0-15.0 [facility] Comment on above: Performed By: #### P T #### [facility] [address] [place] [address] Dr. Hugh Landis Hematocrit (Bld) [Volume fraction] 36.2 % Critically low 42.0-54.0 [facility] Comment on above: Performed By: #### P T #### [facility] [address] [address] [address] Hugh Landis Hemoglobin (Bld) [Mass/Vol] 11.5 g/dL Critically low 14.0-18.0 [facility] Comment on above: Performed By: #### P T #### [facility] [address] [address] [address] Hugh Landis IG # 0.02 10e3/ul Normal 0.00-0.03 [facility] Comment on above: Performed By: #### P T #### [facility] [address] [address] [address] Hugh Landis IG % 0.3 % Normal 0.0-0.5 [facility] Comment on above: Performed By: #### P T #### [facility] [address] [place] [address] Dr. Hugh Landis LYMPH # 1.4 103/ul Normal 1.2-3.8 [facility] Comment on above: Performed By: #### P T #### [facility] [address] [place] [address] Dr. Hugh Landis Lymphocytes/100 WBC (Bld) 21.3 % Normal 20.5-60.0 [facility] Comment on above: Performed By: #### P T #### [facility] [address] [place] [address] Dr. Hugh Landis MANUAL DIFF REQ NO Normal [facility] Comment on above: Performed By: #### P T #### [facility] [address] [place] [address] Dr. Hugh Landis MCH (RBC) [Entitic mass] 29.6 pg Normal 25.9-34.0 [facility] Comment on above: Performed By: #### P T #### [facility] [address] [place] [address] Dr. Hugh Landis MCHC (RBC) [Mass/Vol] 31.8 g/dL Normal 29.9-35.2 [facility] Comment on above: Performed By: #### P T #### [facility] [address] [place] [address] Dr. Hugh Landis MCV (RBC) [Entitic vol] 93.1 fL Normal 80.0-94.0 [facility] Comment on above: Performed By: #### P T #### [facility] [address] [place] [address] Dr. Hugh Landis MONO # 0.8 103/ul Normal 0.3-0.8 [facility] [place] [facility] Comment on above: Performed By: #### P T #### [facility] [address] [place] [address] Dr. Hugh Landis Monocytes/100 WBC (Bld) 11.5 % Normal 1.7-12.0 [facility] Comment on above: Performed By: #### P T #### [facility] [address] [place] [address] Dr. Hugh Landis NEUT # 4.2 103/ul Normal 1.4-6.5 [facility] Comment on above: Performed By: #### P T #### [facility] [address] [address] [address] Hugh Landis Neutrophils/100 WBC (Bld) 64.0 % Normal 43.0-75.0 [facility] Comment on above: Performed By: #### P T #### [facility] [address] [place] [address] Dr. Hugh Landis Platelet mean volume (Bld) [Entitic vol] 9.2 fL Critically low 9.5-13.5 [facility] Comment on above: Performed By: #### P T #### [facility] [address] [place] [address] Dr. Hugh Landis PLT 241 103/ul Normal 150-450 [facility] [place] [facility] Comment on above: Performed By: #### P T #### [facility] [address] [place] [address] Dr. Hugh Landis RBC 3.89 106/ul Critically low 4.70-6.10 [facility] Comment on above: Performed By: #### P T #### [facility] [address] [place] [address] Dr. Hugh Landis WBC 6.5 103/ul Normal 4.0-11.0 [facility] Comment on above: Performed By: #### P T #### [facility] [address] [place] [address] Dr. Hugh Landis Cov[facility]-19 [facility]26 SARS-CoV-2 (COVID-19) RNA MUKUL+probe Ql (Unsp spec) Not detected Normal NOT DETECTED [facility] Comment on above: Result Comment: This test is not yet approved or cleared by the [place] FDA. When there are no FDA-approved or cleared tests available, and other criteria are met, FDA can make tests available under an emergency access mechanism called an Emergency Use Authorization (EUA). The EUA for this test is supported by the [place] of Health and Human Service's (HHS's) declaration [...] U TOMAS, TSH, CMP, LIPID, T7 #### [facility] [address] [place] [address] Dr. Hugh Landis PROF CHEM 8 (BAS METB)on Anion gap [Moles/Vol] 16.3 mmol/L Normal [facility] Comment on above: Performed By: #### C MP, LIPID, TSH #### [facility] [address] [place] [address] Dr. Hugh Landis Calcium [Mass/Vol] 9.6 mg/dL Normal 8.5-10.1 [facility] Comment on above: Performed By: #### C MP, LIPID, TSH #### [facility] [address] [place] [address] Dr. Hugh Landis Chloride [Moles/Vol] 103 mmol/L Normal 98-107 [facility] Comment on above: Performed By: #### C MP, LIPID, TSH #### [facility] [address] [place] [address] Dr. Hugh Landis CO2 [Moles/Vol] 21.9 mmol/L Normal 21.0-32.0 [facility] Comment on above: Performed By: #### C MP, LIPID, TSH #### [facility] [address] [place] [address] Dr. Hugh Landis Creatinine [Mass/Vol] 3.58 mg/dL Critically high 0.70-1.30 [facility] Comment on above: Performed By: #### C MP, LIPID, TSH #### [facility] [address] [address] [address] Hugh Landis EGFR-AF TAIWANESE 21 mL/min/1.73m2 Critically low >=60 [facility] Comment on above: Performed By: #### C MP, LIPID, TSH #### [facility] [address] [address] [address] Hugh Landis EGFR-NON AF TAIWANESE 18 mL/min/1.73m2 Critically low >=60 [facility] Comment on above: Performed By: #### C MP, LIPID, TSH #### [facility] [address] [address] [address] Hugh Landis Glucose [Mass/Vol] 115 mg/dL Critically high 74-106 [facility] Comment on above: Performed By: #### C MP, LIPID, TSH #### [facility] [address] [place] [address] Dr. Hugh Landis Potassium [Moles/Vol] 5.2 mmol/L Critically high 3.5-5.1 [facility] Comment on above: Performed By: #### C MP, LIPID, TSH #### [facility] [address] [address] [address] Hugh Landis Sodium [Moles/Vol] 136 mmol/L Normal 136-145 [facility] Comment on above: Performed By: #### C MP, LIPID, TSH #### [facility] [address] [address] [address] Hugh Landis Urea nitrogen [Mass/Vol] 54.0 mg/dL Critically high 7.0-18.0 [facility] Comment on above: Performed By: #### C MP, LIPID, TSH #### [facility] [address] [place] [address] Dr. Hugh Landis Urea nitrogen/Creatinine [Mass ratio] 15.1 mg/mg Normal [facility] Comment on above: Performed By: #### C MP, LIPID, TSH #### [facility] [address] [address] [address] Hugh Landis MRSA COLONIZATION SCREENING CULTUREon 10-09-2021 MRSA Screening Culture Negative Normal [facility] Comment on above: Performed By: #### C MP, LIPID, TSH #### [facility] [address] [place] [address] Dr. Hugh Landis CBC AUTO DIFFon 10-06-2021 BASO # 0.0 103/ul Normal 0.0-0.1 [facility] Comment on above: Performed By: #### U TOMAS, TSH, CMP, LIPID, T7 #### [facility] [address] [address] [address] Hugh Landis Basophils/100 WBC (Bld) 0.3 % Normal 0.2-2.0 [facility] Comment on above: Performed By: #### U TOMAS, TSH, CMP, LIPID, T7 #### [facility] [address] [place] [address] Dr. Hugh Landis EO # 0.1 103/ul Normal 0.0-0.7 [facility] Comment on above: Performed By: #### U TOMAS, TSH, CMP, LIPID, T7 #### [facility] [address] [place] [address] Dr. Hugh Landis Eosinophils/100 WBC (Bld) 2.3 % Normal 0.9-7.0 [facility] Comment on above: Performed By: #### U TOMAS, TSH, CMP, LIPID, T7 #### [facility] [address] [place] [address] Dr. Hugh Landis Erythrocyte distribution width (RBC) [Ratio] 13.3 % Normal 11.0-15.0 [facility] Comment on above: Performed By: #### U TOMAS, TSH, CMP, LIPID, T7 #### [facility] [address] [place] [address] Dr. Hugh Landis Hematocrit (Bld) [Volume fraction] 36.5 % Critically low 42.0-54.0 [facility] Comment on above: Performed By: #### U TOMAS, TSH, CMP, LIPID, T7 #### [facility] [address] [place] [address] Dr. Hugh Landis Hemoglobin (Bld) [Mass/Vol] 11.7 g/dL Critically low 14.0-18.0 [facility] Comment on above: Performed By: #### U TOMAS, TSH, CMP, LIPID, T7 #### [facility] [address] [place] [address] Dr. Hugh Landis IG # 0.02 10e3/ul Normal 0.00-0.03 [facility] Comment on above: Performed By: #### U TOMAS, TSH, CMP, LIPID, T7 #### [facility] [address] [place] [address] Dr. Hugh Landis IG % 0.3 % Normal 0.0-0.5 [facility] Comment on above: Performed By: #### U TOMAS, TSH, CMP, LIPID, T7 #### [facility] [address] [place] [address] Dr. Hugh Landis LYMPH # 1.3 103/ul Normal 1.2-3.8 [facility] Comment on above: Performed By: #### U TOMAS, TSH, CMP, LIPID, T7 #### [facility] [address] [place] [address] Dr. Hugh Landis Lymphocytes/100 WBC (Bld) 21.9 % Normal 20.5-60.0 [facility] Comment on above: Performed By: #### U TOMAS, TSH, CMP, LIPID, T7 #### [facility] [address] [place] [address] Dr. Hugh Landis MANUAL DIFF REQ NO Normal [facility] Comment on above: Performed By: #### U TOMAS, TSH, CMP, LIPID, T7 #### [facility] [address] [place] [address] Dr. Hugh Landis MCH (RBC) [Entitic mass] 29.7 pg Normal 25.9-34.0 [facility] Comment on above: Performed By: #### U TOMAS, TSH, CMP, LIPID, T7 #### [facility] [address] [place] [address] Dr. Hugh Landis MCHC (RBC) [Mass/Vol] 32.1 g/dL Normal 29.9-35.2 [facility] Comment on above: Performed By: #### U TOMAS, TSH, CMP, LIPID, T7 #### [facility] [address] [place] [address] Dr. Hugh Landis MCV (RBC) [Entitic vol] 92.6 fL Normal 80.0-94.0 [facility] Comment on above: Performed By: #### U TOMAS, TSH, CMP, LIPID, T7 #### [facility] [address] [place] [address] Dr. Hugh Landis MONO # 0.7 103/ul Normal 0.3-0.8 [facility] Comment on above: Performed By: #### U TOMAS, TSH, CMP, LIPID, T7 #### [facility] [address] [place] [address] Dr. Hugh Landis Monocytes/100 WBC (Bld) 11.3 % Normal 1.7-12.0 [facility] Comment on above: Performed By: #### U TOMAS, TSH, CMP, LIPID, T7 #### [facility] [address] [place] [address] Dr. Hugh Landis NEUT # 3.7 103/ul Normal 1.4-6.5 [facility] Comment on above: Performed By: #### U TOMAS, TSH, CMP, LIPID, T7 #### [facility] [address] [place] [address] Dr. Hugh Landis Neutrophils/100 WBC (Bld) 63.9 % Normal 43.0-75.0 [facility] Comment on above: Performed By: #### U TOMAS, TSH, CMP, LIPID, T7 #### [facility] [address] [place] [address] Dr. Hugh Landis Platelet mean volume (Bld) [Entitic vol] 8.9 fL Critically low 9.5-13.5 [facility] Comment on above: Performed By: #### U TOMAS, TSH, CMP, LIPID, T7 #### [facility] [address] [place] [address] Dr. Hugh Landis PLT 257 103/ul Normal 150-450 [facility] Comment on above: Performed By: #### U TOMAS, TSH, CMP, LIPID, T7 #### [facility] [address] [address] [address] Hugh Landis RBC 3.94 106/ul Critically low 4.70-6.10 [facility] Comment on above: Performed By: #### U TOMAS, TSH, CMP, LIPID, T7 #### [facility] [address] [address] [address] Hugh Landis WBC 5.8 103/ul Normal 4.0-11.0 [facility] Comment on above: Performed By: #### U TOMAS, TSH, CMP, LIPID, T7 #### [facility] [address] [address] [address] Hugh Landis GLYCOHEMOGLOBIN A1Con 2021 ADA RECOMMENDATION SEE BELOW Normal [facility] Comment on above: Result Comment: ADA RECOMMENDED LIMIT 4.0 - 6.0 ADA THERAPEUTIC TARGET < 7.0 ACTION SUGGESTED > 7.0 Performed By: #### U TOMAS, TSH, CMP, LIPID, T7 #### [facility] [address] [address] [address] Hugh Landis Glucose [Mass/Vol] 134 mg/dL Normal [facility] Comment on above: Performed By: #### U TOMAS, TSH, CMP, LIPID, T7 #### [facility] [address] [address] [address] Hugh Landis HbA1c (Bld) [Mass fraction] 6.3 % Critically high 4.5-6.2 [facility] Comment on above: Performed By: #### U TOMAS, TSH, CMP, LIPID, T7 #### [facility] [address] [address] [address] Hugh Landis PROF CHEM 8 (BAS METB)on Anion gap [Moles/Vol] 17.6 mmol/L Normal [facility] Comment on above: Performed By: #### C MP, LIPID, TSH #### [facility] [address] [address] [address] Hugh Landis Calcium [Mass/Vol] 9.5 mg/dL Normal 8.5-10.1 [facility] Comment on above: Performed By: #### C MP, LIPID, TSH #### [facility] [address] [address] [address] Hugh Landis Chloride [Moles/Vol] 102 mmol/L Normal 98-107 [facility] Comment on above: Performed By: #### C MP, LIPID, TSH #### [facility] [address] [address] [address] Hugh Landis CO2 [Moles/Vol] 22.2 mmol/L Normal 21.0-32.0 [facility] Comment on above: Performed By: #### C MP, LIPID, TSH #### [facility] [address] [address] [address] Hugh Landis Creatinine [Mass/Vol] 2.94 mg/dL Critically high 0.70-1.30 [facility] Comment on above: Performed By: #### C MP, LIPID, TSH #### [facility] [address] [address] [address] Hugh Landis EGFR-AF TAIWANESE 27 mL/min/1.73m2 Critically low >=60 [facility] Comment on above: Performed By: #### C MP, LIPID, TSH #### [facility] [address] [address] [address] Hugh Landis EGFR-NON AF TAIWANESE 22 mL/min/1.73m2 Critically low >=60 [facility] Comment on above: Performed By: #### C MP, LIPID, TSH #### [facility] [address] [address] [address] Hugh Landis Glucose [Mass/Vol] 234 mg/dL Critically high 74-106 [facility] [facility] Comment on above: Performed By: #### C MP, LIPID, TSH #### [facility] [address] [address] [address] Hugh Landis Potassium [Moles/Vol] 5.8 mmol/L Critically high 3.5-5.1 [facility] Comment on above: Performed By: #### C MP, LIPID, TSH #### [facility] [address] [address] [address] Hugh Landis Sodium [Moles/Vol] 136 mmol/L Normal 136-145 [facility] Comment on above: Performed By: #### C MP, LIPID, TSH #### [facility] [address] [place] [address] Dr. Hugh Landis Urea nitrogen [Mass/Vol] 46.0 mg/dL Critically high 7.0-18.0 [facility] Comment on above: Performed By: #### C MP, LIPID, TSH #### [facility] [address] [place] [address] Dr. Hugh Landis Urea nitrogen/Creatinine [Mass ratio] 15.6 mg/mg Normal [facility] Comment on above: Performed By: #### C MP, LIPID, TSH #### [facility] [address] [place] [address] Dr. Hugh Landis PROTIMEon 10-06-2021 INR Coag (PPP) [Relative time] 1.22 {INR} Normal [facility] Comment on above: Performed By: #### U TOMAS, TSH, CMP, LIPID, T7 #### [facility] [address] [place] [address] Dr. Hugh Landis INR GUIDELINES SEE BELOW Normal [facility] Comment on above: Result Comment: VIC RED INR: 2.0 - 3.0 CONDITIONS NOT LISTED BELOW 2.5 - 3.5 FOR PROSTHETIC HEART VALVE REPLACEMENT 2.5 - 3.5 RECURRENT THROMBOSIS Performed By: #### U TOMAS, TSH, CMP, LIPID, T7 #### [facility] [address] [place] [address] Dr. Hugh Landis PT Coag (PPP) [Time] 13.0 s Critically high 9.0-11.6 [facility] Comment on above: Performed By: #### U TOMAS, TSH, CMP, LIPID, T7 #### [facility] [address] [place] [address] Dr. Hugh Landis PTTon 10-06-2021 aPTT Coag (Bld) [Time] 30.6 s Normal 22.3-36.2 [facility] Comment on above: Performed By: #### U TOMAS, TSH, CMP, LIPID, T7 #### [facility] [address] [address] [address] Hugh Landis UA RANDOMon 10-06-2021 Bilirubin Ql (U) Negative Normal NEGATIVE [facility] Comment on above: Performed By: #### C MP, LIPID, TSH #### [facility] [address] [place] [address] Dr. Hugh Landis Clarity (U) CLEAR Normal CLEAR [facility] Comment on above: Performed By: #### C MP, LIPID, TSH #### [facility] [address] [address] [address] Hugh Landis Color (U) LT. YELLOW Normal YELLOW [facility] Comment on above: Performed By: #### C MP, LIPID, TSH #### [facility] [address] [place] [address] Dr. Hugh Landis Glucose Ql (U) Negative Normal NEGATIVE [facility] Comment on above: Performed By: #### C MP, LIPID, TSH #### [facility] [address] [place] [address] Dr. Hugh Landis Hemoglobin Ql (U) Negative Normal NEGATIVE [facility] Comment on above: Performed By: #### C MP, LIPID, TSH #### [facility] [address] [place] [address] Dr. Hugh Landis Ketones Ql (U) Negative Normal NEGATIVE [facility] Comment on above: Performed By: #### C MP, LIPID, TSH #### [facility] [address] [place] [address] Dr. Hugh Landis LEUKOCYTES Negative Normal NEGATIVE [facility] Comment on above: Performed By: #### C MP, LIPID, TSH #### [facility] [address] [place] [address] Dr. Hugh Landis Nitrite Ql (U) Negative Normal NEGATIVE [facility] Comment on above: Performed By: #### C MP, LIPID, TSH #### [facility] [address] [place] [address] Dr. Hugh Landis pH (U) 5.5 [pH] Normal 5-9 [facility] Comment on above: Performed By: #### C MP, LIPID, TSH #### [facility] [address] [place] [address] Dr. Hugh Landis SPEC GRAVITY 1.020 Normal 1.005-<=1.02 5 [facility] Comment on above: Performed By: #### C MP, LIPID, TSH #### [facility] [address] [place] [address] Dr. Hugh Landis UA PROTEIN Negative Normal NEGATIVE/ TRACE [facility] Comment on above: Performed By: #### C MP, LIPID, TSH #### [facility] [address] [place] [address] Dr. Hugh Landis Urobilinogen Qn (U) 0.2 {Dahiana'U}/dL Normal 0.2 - 1. 0 [facility] Comment on above: Performed By: #### C MP, LIPID, TSH #### [facility] [address] [place] [address] Dr. Hugh Landis CBC AUTO DIFFon 09-25-2021 BASO # 0.0 103/ul Normal 0.0-0.1 [facility] Comment on above: Performed By: #### U TOMAS, TSH, CMP, LIPID, T7 #### [facility] [address] [place] [address] Dr. Hguh Landis Basophils/100 WBC (Bld) 0.4 % Normal 0.2-2.0 [facility] Comment on above: Performed By: #### U TOMAS, TSH, CMP, LIPID, T7 #### [facility] [address] [place] [address] Dr. Hugh Landis EO # 0.1 103/ul Normal 0.0-0.7 [facility] Comment on above: Performed By: #### U TOMAS, TSH, CMP, LIPID, T7 #### [facility] [address] [place] [address] Dr. Hugh Landis Eosinophils/100 WBC (Bld) 1.7 % Normal 0.9-7.0 [facility] Comment on above: Performed By: #### U TOMAS, TSH, CMP, LIPID, T7 #### [facility] [address] [place] [address] Dr. Hugh Landis Erythrocyte distribution width (RBC) [Ratio] 13.5 % Normal 11.0-15.0 [facility] Comment on above: Performed By: #### U TOMAS, TSH, CMP, LIPID, T7 #### [facility] [address] [address] [address] Hugh Landis Hematocrit (Bld) [Volume fraction] 36.0 % Critically low 42.0-54.0 [facility] Comment on above: Performed By: #### U TOMAS, TSH, CMP, LIPID, T7 #### [facility] [address] [address] [address] Hugh Landis Hemoglobin (Bld) [Mass/Vol] 11.7 g/dL Critically low 14.0-18.0 [facility] Comment on above: Performed By: #### U TOMAS, TSH, CMP, LIPID, T7 #### [facility] [address] [place] [address] Dr. Hugh Landis IG # 0.02 10e3/ul Normal 0.00-0.03 [facility] Comment on above: Performed By: #### U TOMAS, TSH, CMP, LIPID, T7 #### [facility] [address] [address] [address] Hugh Landis IG % 0.3 % Normal 0.0-0.5 [facility] Comment on above: Performed By: #### U TOMAS, TSH, CMP, LIPID, T7 #### [facility] [address] [address] [address] Hugh Landis LYMPH # 1.3 103/ul Normal 1.2-3.8 [facility] Comment on above: Performed By: #### U TOMAS, TSH, CMP, LIPID, T7 #### [facility] [address] [address] [address] Hugh Landis Lymphocytes/100 WBC (Bld) 18.3 % Critically low 20.5-60.0 [facility] Comment on above: Performed By: #### U TOMAS, TSH, CMP, LIPID, T7 #### [facility] [address] [place] [address] Dr. Hugh Landis MANUAL DIFF REQ NO Normal [facility] Comment on above: Performed By: #### U TOMAS, TSH, CMP, LIPID, T7 #### [facility] [address] [place] [address] Dr. Hugh Landis MCH (RBC) [Entitic mass] 29.4 pg Normal 25.9-34.0 [facility] Comment on above: Performed By: #### U TOMAS, TSH, CMP, LIPID, T7 #### [facility] [address] [place] [address] Dr. Hugh Landis MCHC (RBC) [Mass/Vol] 32.5 g/dL Normal 29.9-35.2 [facility] Comment on above: Performed By: #### U TOMAS, TSH, CMP, LIPID, T7 #### [facility] [address] [place] [address] Dr. Hugh Landis MCV (RBC) [Entitic vol] 90.5 fL Normal 80.0-94.0 [facility] Comment on above: Performed By: #### U TOMAS, TSH, CMP, LIPID, T7 #### [facility] [address] [place] [address] Dr. Hugh Landis MONO # 0.6 103/ul Normal 0.3-0.8 [facility] Comment on above: Performed By: #### U TOMAS, TSH, CMP, LIPID, T7 #### [facility] [address] [place] [address] Dr. Hugh Landis Monocytes/100 WBC (Bld) 8.6 % Normal 1.7-12.0 [facility] Comment on above: Performed By: #### U TOMAS, TSH, CMP, LIPID, T7 #### [facility] [address] [place] [address] Dr. Hugh Landis NEUT # 4.9 103/ul Normal 1.4-6.5 [facility] Comment on above: Performed By: #### U TOMAS, TSH, CMP, LIPID, T7 #### [facility] [address] [place] [address] Dr. Hugh Landis Neutrophils/100 WBC (Bld) 70.7 % Normal 43.0-75.0 [facility] Comment on above: Performed By: #### U TOMAS, TSH, CMP, LIPID, T7 #### [facility] [address] [address] [address] Hugh Landis Platelet mean volume (Bld) [Entitic vol] 8.8 fL Critically low 9.5-13.5 [facility] Comment on above: Performed By: #### U TOMAS, TSH, CMP, LIPID, T7 #### [facility] [address] [place] [address] Dr. Hugh Landis PLT 270 103/ul Normal 150-450 [facility] Comment on above: Performed By: #### U TOMAS, TSH, CMP, LIPID, T7 #### [facility] [address] [place] [address] Dr. Hugh Landis RBC 3.98 106/ul Critically low 4.70-6.10 [facility] Comment on above: Performed By: #### U TOMAS, TSH, CMP, LIPID, T7 #### [facility] [address] [place] [address] Dr. Hugh Landis WBC 6.9 103/ul Normal 4.0-11.0 [facility] Comment on above: Performed By: #### U TOMAS, TSH, CMP, LIPID, T7 #### [facility] [address] [place] [address] Dr. Hugh Landis CRPon 09-25-2021 CRP [Mass/Vol] mg/L Normal <=1.0 [facility] Comment on above: Performed By: #### P T #### [facility] [address] [place] [address] Dr. Hugh Landis CULTURE BLOODon 09-25-2021 Microscopic examination of blood, culture Culture Observations: NO GROWTH AT 5 DAYS. Normal [facility] Comment on above: Performed By: #### B MP #### [facility] [address] [place] [address] Dr. Hugh Landis Microscopic examination of blood, culture Culture Observations: NO GROWTH AT 5 DAYS. Normal [facility] Comment on above: Performed By: #### B MP #### [facility] [address] [address] [address] Hugh Landis IRONon 09-25-2021 Iron [Mass/Vol] 62.0 ug/dL Critically low 65.0-175.0 [facility] Comment on above: Performed By: #### B MP #### [facility] [address] [place] [address] Dr. Hugh Landis SED RATE WESTERGRENon 2021 SED RATE 102 mm/hr Critically high <=20 [facility] Comment on above: Performed By: #### C MP, LIPID, TSH #### [facility] [address] [place] [address] Dr. Hugh Landis NM BONE IMAGE 3 [...] OBIE TSE Date: 2021-09-05 16:15 Normal [facility] CREATININEon 08-25-2021 Creatinine [Mass/Vol] 1.92 mg/dL Critically high 0.70-1.30 [facility] Comment on above: Performed By: #### C MP, LIPID, TSH #### [facility] [address] [address] [address] Hugh Landis EGFR-AF TAIWANESE 44 mL/min/1.73m2 Critically low >=60 [facility] Comment on above: Performed By: #### C MP, LIPID, TSH #### [facility] [address] [place] [address] Dr. Hugh Landis EGFR-NON AF TAIWANESE 36 mL/min/1.73m2 Critically low >=60 [facility] Comment on above: Performed By: #### C MP, LIPID, TSH #### [facility] [address] [place] [address] Dr. Hugh Landis CTA CHEST WO W [...] OBIE TSE Date: 2021-08-25 10:16 Normal [facility] CBC AUTO DIFFon 08-18-2021 BASO # 0.0 103/ul Normal 0.0-0.1 [facility] Comment on above: Performed By: #### C MP, LIPID, TSH #### [facility] [address] [place] [address] Dr. Hugh Landis Basophils/100 WBC (Bld) 0.4 % Normal 0.2-2.0 [facility] Comment on above: Performed By: #### C MP, LIPID, TSH #### [facility] [address] [place] [address] Dr. Hugh Landis EO # 0.1 103/ul Normal 0.0-0.7 [facility] Comment on above: Performed By: #### C MP, LIPID, TSH #### [facility] [address] [address] [address] Hugh Landis Eosinophils/100 WBC (Bld) 1.8 % Normal 0.9-7.0 [facility] Comment on above: Performed By: #### C MP, LIPID, TSH #### [facility] [address] [place] [address] Dr. Hugh Landis Erythrocyte distribution width (RBC) [Ratio] 13.3 % Normal 11.0-15.0 [facility] Comment on above: Performed By: #### C MP, LIPID, TSH #### [facility] [address] [place] [address] Dr. Hugh Landis Hematocrit (Bld) [Volume fraction] 34.7 % Critically low 42.0-54.0 [facility] Comment on above: Performed By: #### C MP, LIPID, TSH #### [facility] [address] [place] [address] Dr. Hugh Landis Hemoglobin (Bld) [Mass/Vol] 11.3 g/dL Critically low 14.0-18.0 [facility] Comment on above: Performed By: #### C MP, LIPID, TSH #### [facility] [address] [place] [address] Dr. Hugh Landis IG # 0.05 10e3/ul Critically high 0.00-0.03 [facility] Comment on above: Performed By: #### C MP, LIPID, TSH #### [facility] [address] [place] [address] Dr. Hugh Landis IG % 0.7 % Critically high 0.0-0.5 [facility] Comment on above: Performed By: #### C MP, LIPID, TSH #### [facility] [address] [place] [address] Dr. Hugh Landis LYMPH # 1.1 103/ul Critically low 1.2-3.8 [facility] Comment on above: Performed By: #### C MP, LIPID, TSH #### [facility] [address] [place] [address] Dr. Hugh Landis Lymphocytes/100 WBC (Bld) 16.0 % Critically low 20.5-60.0 [facility] Comment on above: Performed By: #### C MP, LIPID, TSH #### [facility] [address] [place] [address] Dr. Hugh Landis MANUAL DIFF REQ NO Normal [facility] Comment on above: Performed By: #### C MP, LIPID, TSH #### [facility] [address] [place] [address] Dr. Hugh Landis MCH (RBC) [Entitic mass] 29.7 pg Normal 25.9-34.0 [facility] Comment on above: Performed By: #### C MP, LIPID, TSH #### [facility] [address] [place] [address] Dr. Hugh Landis MCHC (RBC) [Mass/Vol] 32.6 g/dL Normal 29.9-35.2 [facility] Comment on above: Performed By: #### C MP, LIPID, TSH #### [facility] [address] [place] [address] Dr. Hugh Landis MCV (RBC) [Entitic vol] 91.3 fL Normal 80.0-94.0 [facility] Comment on above: Performed By: #### C MP, LIPID, TSH #### [facility] [address] [place] [address] Dr. Hugh Landis MONO # 0.7 103/ul Normal 0.3-0.8 [facility] Comment on above: Performed By: #### C MP, LIPID, TSH #### [facility] [address] [place] [address] Dr. Hugh Landis Monocytes/100 WBC (Bld) 9.7 % Normal 1.7-12.0 [facility] Comment on above: Performed By: #### C MP, LIPID, TSH #### [facility] [address] [place] [address] Dr. Hugh Landis NEUT # 4.9 103/ul Normal 1.4-6.5 [facility] Comment on above: Performed By: #### C MP, LIPID, TSH #### [facility] [address] [address] [address] Hugh Landis Neutrophils/100 WBC (Bld) 71.4 % Normal 43.0-75.0 [facility] Comment on above: Performed By: #### C MP, LIPID, TSH #### [facility] [address] [place] [address] Dr. Hugh Landis Platelet mean volume (Bld) [Entitic vol] 9.0 fL Critically low 9.5-13.5 [facility] Comment on above: Performed By: #### C MP, LIPID, TSH #### [facility] [address] [address] [address] Hugh Landis PLT 264 103/ul Normal 150-450 [facility] Comment on above: Performed By: #### C MP, LIPID, TSH #### [facility] [address] [place] [address] Dr. Hugh Landis RBC 3.80 106/ul Critically low 4.70-6.10 [facility] Comment on above: Performed By: #### C MP, LIPID, TSH #### [facility] [address] [place] [address] Dr. Hugh Landis WBC 6.8 103/ul Normal 4.0-11.0 [facility] Comment on above: Performed By: #### C MP, LIPID, TSH #### [facility] [address] [place] [address] Dr. Hugh Landis PROF 14(COMP METB)on 022 Albumin [Mass/Vol] 3.5 g/dL Normal 3.4-5.0 [facility] Comment on above: Performed By: #### U TOMAS, TSH, CMP, LIPID, T7 #### [facility] [address] [address] [address] Hugh Landis Albumin/Globulin [Mass ratio] 0.8 {ratio} Normal [facility] Comment on above: Performed By: #### U TOMAS, TSH, CMP, LIPID, T7 #### [facility] [address] [place] [address] Dr. Hugh Landis ALP [Catalytic activity/Vol] 63 U/L Normal 46-116 [facility] Comment on above: Performed By: #### U TOMAS, TSH, CMP, LIPID, T7 #### [facility] [address] [address] [address] Hugh Landis ALT [Catalytic activity/Vol] 26 U/L Normal 16-63 [facility] Comment on above: Performed By: #### U TOMAS, TSH, CMP, LIPID, T7 #### [facility] [address] [address] [address] Hugh Landis Anion gap [Moles/Vol] 12.7 mmol/L Normal [facility] Comment on above: Performed By: #### U TOMAS, TSH, CMP, LIPID, T7 #### [facility] [address] [place] [address] Dr. Hugh Landis AST [Catalytic activity/Vol] 14 U/L Critically low 15-37 [facility] Comment on above: Performed By: #### U TOMAS, TSH, CMP, LIPID, T7 #### [facility] [address] [address] [address] Hugh Landis Bilirubin [Mass/Vol] 0.3 mg/dL Normal 0.2-1.0 [facility] Comment on above: Performed By: #### U TOMAS, TSH, CMP, LIPID, T7 #### [facility] [address] [place] [address] Dr. Hugh Landis Calcium [Mass/Vol] 9.2 mg/dL Normal 8.5-10.1 [facility] Comment on above: Performed By: #### U TOMAS, TSH, CMP, LIPID, T7 #### [facility] [address] [place] [address] Dr. Hugh Landis Chloride [Moles/Vol] 105 mmol/L Normal 98-107 [facility] Comment on above: Performed By: #### U TOMAS, TSH, CMP, LIPID, T7 #### [facility] [address] [place] [address] Dr. Hugh Landis CO2 [Moles/Vol] 25.5 mmol/L Normal 21.0-32.0 [facility] Comment on above: Performed By: #### U TOMAS, TSH, CMP, LIPID, T7 #### [facility] [address] [place] [address] Dr. Hugh Lnadis Creatinine [Mass/Vol] 2.46 mg/dL Critically high 0.70-1.30 [facility] Comment on above: Performed By: #### U TOMAS, TSH, CMP, LIPID, T7 #### [facility] [address] [place] [address] Dr. Hugh Landis EGFR-AF TAIWANESE 33 mL/min/1.73m2 Critically low >=60 [facility] Comment on above: Performed By: #### U TOMAS, TSH, CMP, LIPID, T7 #### [facility] [address] [place] [address] Dr. Hugh Lnadis EGFR-NON AF TAIWANESE 27 mL/min/1.73m2 Critically low >=60 [facility] Comment on above: Performed By: #### U TOMAS, TSH, CMP, LIPID, T7 #### [facility] [address] [place] [address] Dr. Hugh Landis Globulin (S) [Mass/Vol] 4.5 g/dL Normal [facility] Comment on above: Performed By: #### U TOMAS, TSH, CMP, LIPID, T7 #### [facility] [address] [place] [address] Dr. Hugh Landis Glucose [Mass/Vol] 119 mg/dL Critically high 74-106 [facility] Comment on above: Performed By: #### U TOMAS, TSH, CMP, LIPID, T7 #### [facility] [address] [place] [address] Dr. Hugh Landis Potassium [Moles/Vol] 4.2 mmol/L Normal 3.5-5.1 [facility] Comment on above: Performed By: #### U TOMAS, TSH, CMP, LIPID, T7 #### [facility] [address] [place] [address] Dr. Hugh Landis Protein [Mass/Vol] 8.0 g/dL Normal 6.4-8.2 [facility] Comment on above: Performed By: #### U TOMAS, TSH, CMP, LIPID, T7 #### [facility] [address] [id number] [address] Hugh Landis Sodium [Moles/Vol] 139 mmol/L Normal 136-145 [facility] Comment on above: Performed By: #### U TOMAS, TSH, CMP, LIPID, T7 #### [facility] [address] [id number] [address] Hugh Landis Urea nitrogen [Mass/Vol] 49.0 mg/dL Critically high 7.0-18.0 [facility] Comment on above: Performed By: #### U TOMAS, TSH, CMP, LIPID, T7 #### [facility] [address] [id number] [address] Hugh Landis Urea nitrogen/Creatinine [Mass ratio] 19.9 mg/mg Normal [facility] Comment on above: Performed By: #### U TOMAS, TSH, CMP, LIPID, T7 #### [facility] [address] [address] [address] Hugh Landis TESTOSTERONE, FREE,DIRECT, T OTALon 08-14-2021 Free Testosterone(Direct) 5.9 pg/mL Critically low 7.2-24.[address] [facility] Comment on above: Result Comment: Perf ormed at: BN Performed By: #### B MP #### [facility] [address] [place] [address] Dr. Hugh Landis Testosterone [Mass/Vol] 392 ng/dL Normal 264-916 [facility] Comment on above: Result Comment: Adul t male reference interval is based on a population of healthy nonobese males (BMI <30) between 19 and 39 years old. Gavi et.al. JCEM 2017,102;9566-2955. PMID: [id number]. Performed at: CB Performed By: #### B MP #### [facility] [address] [place], [place] [id number] Dr. Hugh Landis VITAMIN B1 (THIAMINE)on 07-27 Vit. B1, Whole Blood 145.1 nmol/L Normal 66.5-200.0 [facility] Comment on above: Performed By: #### C MP, LIPID, TSH #### [facility] [address] [address] [address] Hugh Landis VITAMIN Aon 08-13-2021 Vitamin A 82.7 ug/dL Critically high 20.1-62.0 [facility] Comment on above: Result Comment: [...] Administration. Performed By: #### P T #### [facility] [address] [place] [address] Dr. Hugh Landis ZINC SERUM OR PLASMAon 08-10 Zinc, Plasma or Serum 78 ug/dL Normal 44-115 [facility] Comment on above: Result Comment: Dete ction Limit = 5 Performed By: #### C MP, LIPID, TSH #### [facility] [address] [place] [address] Dr. Hugh Landis FOLATE ([facility])on 2 Folate 12.9 ng/mL Normal >3.0 [facility] Comment on above: Result Comment: A se rum folate concentration of less than 3.1 ng/mL is considered to represent clinical deficiency. Performed By: #### P TT #### [facility] [address] [place] [address] Dr. Hugh Landis PTH INTACTon 08-09-2021 PTH, Intact 29 pg/mL Normal 15-65 [facility] Comment on above: Performed By: #### P TT #### [facility] [address] [place] [address] Dr. Hugh Landis CBC AUTO DIFFon 08-08-2021 BASO # 0.0 103/ul Normal 0.0-0.1 [facility] Comment on above: Performed By: #### C MP, LIPID, TSH #### [facility] [address] [place] [address] Dr. Hugh Landis Basophils/100 WBC (Bld) 0.6 % Normal 0.2-2.0 [facility] Comment on above: Performed By: #### C MP, LIPID, TSH #### [facility] [address] [place] [address] Dr. Hugh Landis EO # 0.2 103/ul Normal 0.0-0.7 [facility] Comment on above: Performed By: #### C MP, LIPID, TSH #### [facility] [facility] [address] [place] [address] Dr. Hugh Landis Eosinophils/100 WBC (Bld) 2.2 % Normal 0.9-7.0 [facility] Comment on above: Performed By: #### C MP, LIPID, TSH #### [facility] [address] [place] [address] Dr. Hugh Landis Erythrocyte distribution width (RBC) [Ratio] 13.4 % Normal 11.0-15.0 [facility] Comment on above: Performed By: #### C MP, LIPID, TSH #### [facility] [address] [place] [address] Dr. Hugh Landis Hematocrit (Bld) [Volume fraction] 38.2 % Critically low 42.0-54.0 [facility] Comment on above: Performed By: #### C MP, LIPID, TSH #### [facility] [address] [place] [address] Dr. Hugh Landis Hemoglobin (Bld) [Mass/Vol] 11.8 g/dL Critically low 14.0-18.0 [facility] Comment on above: Performed By: #### C MP, LIPID, TSH #### [facility] [address] [place] [address] Dr. Hugh Landis IG # 0.03 10e3/ul Normal 0.00-0.03 [facility] Comment on above: Performed By: #### C MP, LIPID, TSH #### [facility] [address] [place] [address] Dr. Hugh Landis IG % 0.4 % Normal 0.0-0.5 [facility] Comment on above: Performed By: #### C MP, LIPID, TSH #### [facility] [address] [place] [address] Dr. Hugh Landis LYMPH # 1.0 103/ul Critically low 1.2-3.8 [facility] Comment on above: Performed By: #### C MP, LIPID, TSH #### [facility] [address] [place] [address] Dr. Hugh Landis Lymphocytes/100 WBC (Bld) 14.9 % Critically low 20.5-60.0 [facility] Comment on above: Performed By: #### C MP, LIPID, TSH #### [facility] [address] [place] [address] Dr. Hugh Landis MANUAL DIFF REQ NO Normal [facility] Comment on above: Performed By: #### C MP, LIPID, TSH #### [facility] [address] [place] [address] Dr. Hugh Landis MCH (RBC) [Entitic mass] 28.5 pg Normal 25.9-34.0 [facility] Comment on above: Performed By: #### C MP, LIPID, TSH #### [facility] [address] [place] [address] Dr. Hugh Landis MCHC (RBC) [Mass/Vol] 30.9 g/dL Normal 29.9-35.2 [facility] Comment on above: Performed By: #### C MP, LIPID, TSH #### [facility] [address] [place] [address] Dr. Hugh Landis MCV (RBC) [Entitic vol] 92.3 fL Normal 80.0-94.0 [facility] Comment on above: Performed By: #### C MP, LIPID, TSH #### [facility] [address] [place] [address] Dr. Hugh Landis MONO # 0.7 103/ul Normal 0.3-0.8 [facility] Comment on above: Performed By: #### C MP, LIPID, TSH #### [facility] [address] [place] [address] Dr. Hugh Landis Monocytes/100 WBC (Bld) 10.6 % Normal 1.7-12.0 [facility] Comment on above: Performed By: #### C MP, LIPID, TSH #### [facility] [address] [address] [address] Hugh Landis NEUT # 4.9 103/ul Normal 1.4-6.5 [facility] Comment on above: Performed By: #### C MP, LIPID, TSH #### [facility] [address] [address] [address] Hugh Landis Neutrophils/100 WBC (Bld) 71.3 % Normal 43.0-75.0 [facility] Comment on above: Performed By: #### C MP, LIPID, TSH #### [facility] [address] [address] [address] Hugh Landis Platelet mean volume (Bld) [Entitic vol] 9.4 fL Critically low 9.5-13.5 [facility] Comment on above: Performed By: #### C MP, LIPID, TSH #### [facility] [address] [address] [address] Hugh Landis PLT 249 103/ul Normal 150-450 [facility] Comment on above: Performed By: #### C MP, LIPID, TSH #### [facility] [address] [address] [address] Hugh Landis RBC 4.14 106/ul Critically low 4.70-6.10 [facility] Comment on above: Performed By: #### C MP, LIPID, TSH #### [facility] [address] [address] [address] Hugh Landis WBC 6.9 103/ul Normal 4.0-11.0 [facility] Comment on above: Performed By: #### C MP, LIPID, TSH #### [facility] [address] [address] [address] Hugh Landis FERRITINon 08-08-2021 Ferritin [Mass/Vol] 154.0 ng/mL Normal 26.0-388.0 [facility] Comment on above: Performed By: #### C MP, LIPID, TSH #### [facility] [address] [address] [address] Hugh Landis GLYCOHEMOGLOBIN A1Con 2021 ADA RECOMMENDATION SEE BELOW Normal [facility] Comment on above: Result Comment: ADA RECOMMENDED LIMIT 4.0 - 6.0 ADA THERAPEUTIC TARGET < 7.0 ACTION SUGGESTED > 7.0 Performed By: #### P T #### [facility] [address] [place] [address] Dr. Hugh Landis Glucose [Mass/Vol] 140 mg/dL Normal [facility] Comment on above: Performed By: #### P T #### [facility] [address] [address] [address] Hugh Landis HbA1c (Bld) [Mass fraction] 6.5 % Critically high 4.5-6.2 [facility] Comment on above: Performed By: #### P T #### [facility] [address] [place] [address] Dr. Hugh Landis IRON AND TIBCon 08-08-2021 % SATURATION 13.6 % Normal [facility] Comment on above: Performed By: #### C MP, LIPID, TSH #### [facility] [address] [place] [address] Dr. Hugh Landis Iron [Mass/Vol] 45.0 ug/dL Critically low 65.0-175.0 The [facility] Comment on above: Performed By: #### C MP, LIPID, TSH #### [facility] [address] [place] [address] Dr. Hugh Landis TIBC DIRECT 332.0 ug/dL Normal 250.0-450.0 The [facility] Comment on above: Performed By: #### C MP, LIPID, TSH #### [facility] [address] [place] [address] Dr. Hugh Landis LIPID PROFILEon 08-08-2021 CHOL-HDL RATIO NORM SEE BELOW Normal The [facility] Comment on above: Result Comment: 3.3 - 4.4 LOW RISK 4.4 - 7.1 AVERAGE RISK 7.1 - 11.0 MODERATE RISK >11.0 HIGH RISK Performed By: #### C MP, LIPID, TSH #### [facility] [address] [place] [address] Dr. Hugh Landis Cholesterol [Mass/Vol] 187 mg/dL Normal <=200 [facility] Comment on above: Performed By: #### C MP, LIPID, TSH #### [facility] [address] [address] [address] Hugh Landis Cholesterol in HDL [Mass/Vol] 51 mg/dL Normal 40-60 [facility] Comment on above: Performed By: #### C MP, LIPID, TSH #### [facility] [address] [address] [address] Hugh Landis Cholesterol in LDL [Mass/Vol] 101.8 mg/dL Normal [facility] Comment on above: Performed By: #### C MP, LIPID, TSH #### [facility] [address] [place] [address] Dr. Hugh Landis Cholesterol.total/Ch olesterol in HDL [Mass ratio] 3.7 {ratio} Normal [facility] Comment on above: Performed By: #### C MP, LIPID, TSH #### [facility] [address] [address] [address] Hugh Landis HDL NORMAL > or = 60 mg/dl - LO W CARDIOVASCULAR RISK <40 mg/dl - HIGH CARDIOVASCULAR RISK Normal [facility] Comment on above: Performed By: #### C MP, LIPID, TSH #### [facility] [address] [place] [address] Dr. Hugh Landis LDL CALC NORMAL SEE BELOW Normal [facility] Comment on above: Result Comment: <100 mg/dl OPTIMAL 100 - 129 mg/dl NEAR OR ABOVE OPTIMAL 130 - 159 mg/dl BORDERLINE HIGH 160 - 189 mg/dl HIGH >190 mg/dl VERY HIGH Performed By: #### C MP, LIPID, TSH #### [facility] [address] [address] [address] Hugh Landis Triglyceride [Mass/Vol] 171 mg/dL Critically high <=150 [facility] Comment on above: Performed By: #### C MP, LIPID, TSH #### [facility] [address] [address] [address] Hugh Landis VLDL CALC 34.2 mg/dL Normal [facility] Comment on above: Performed By: #### C MP, LIPID, TSH #### [facility] [address] [address] [address] Hugh Landis PROF 14(COMP METB)on 022 Albumin [Mass/Vol] 3.6 g/dL Normal 3.4-5.0 [facility] Comment on above: Performed By: #### C MP, LIPID, TSH #### [facility] [address] [address] [address] Hugh Landis Albumin/Globulin [Mass ratio] 0.8 {ratio} Normal [facility] Comment on above: Performed By: #### C MP, LIPID, TSH #### [facility] [address] [address] [address] Hugh Landis ALP [Catalytic activity/Vol] 64 U/L Normal 46-116 [facility] Comment on above: Performed By: #### C MP, LIPID, TSH #### [facility] [address] [place] [address] Dr. Hugh Landis ALT [Catalytic activity/Vol] 28 U/L Normal 16-63 [facility] Comment on above: Performed By: #### C MP, LIPID, TSH #### [facility] [address] [place] [address] Dr. Hugh Landis Anion gap [Moles/Vol] 15.0 mmol/L Normal [facility] Comment on above: Performed By: #### C MP, LIPID, TSH #### [facility] [address] [address] [address] Hugh Landis AST [Catalytic activity/Vol] 14 U/L Critically low 15-37 [facility] Comment on above: Performed By: #### C MP, LIPID, TSH #### [facility] [address] [address] [address] Hugh Landis Bilirubin [Mass/Vol] 0.5 mg/dL Normal 0.2-1.0 [facility] Comment on above: Performed By: #### C MP, LIPID, TSH #### [facility] [address] [place] [address] Dr. Hugh Landis Calcium [Mass/Vol] 9.6 mg/dL Normal 8.5-10.1 [facility] Comment on above: Performed By: #### C MP, LIPID, TSH #### [facility] [address] [place] [address] Dr. Hugh Landis Chloride [Moles/Vol] 105 mmol/L Normal 98-107 [facility] Comment on above: Performed By: #### C MP, LIPID, TSH #### [facility] [address] [place] [address] Dr. Hugh Landis CO2 [Moles/Vol] 23.5 mmol/L Normal 21.0-32.0 [facility] Comment on above: Performed By: #### C MP, LIPID, TSH #### [facility] [address] [place] [address] Dr. Hugh Landis Creatinine [Mass/Vol] 2.69 mg/dL Critically high 0.70-1.30 [facility] Comment on above: Performed By: #### C MP, LIPID, TSH #### [facility] [address] [place] [address] Dr. Hugh Landis EGFR-AF TAIWANESE 30 mL/min/1.73m2 Critically low >=60 [facility] Comment on above: Performed By: #### C MP, LIPID, TSH #### [facility] [address] [place] [address] Dr. Hugh Landis EGFR-NON AF TAIWANESE 25 mL/min/1.73m2 Critically low >=60 [facility] Comment on above: Performed By: #### C MP, LIPID, TSH #### [facility] [address] [place] [address] Dr. Hugh Landis Globulin (S) [Mass/Vol] 4.3 g/dL Normal [facility] Comment on above: Performed By: #### C MP, LIPID, TSH #### [facility] [address] [place] [address] Dr. Hugh Landis Glucose [Mass/Vol] 80 mg/dL Normal 74-106 [facility] Comment on above: Performed By: #### C MP, LIPID, TSH #### [facility] [address] [address] [address] Hugh Landis Potassium [Moles/Vol] 5.5 mmol/L Critically high 3.5-5.1 [facility] Comment on above: Performed By: #### C MP, LIPID, TSH #### [facility] [address] [place] [address] Dr. Hugh Landis Protein [Mass/Vol] 7.9 g/dL Normal 6.4-8.2 [facility] Comment on above: Performed By: #### C MP, LIPID, TSH #### [facility] [address] [place] [address] Dr. Hugh Landis Sodium [Moles/Vol] 138 mmol/L Normal 136-145 [facility] Comment on above: Performed By: #### C MP, LIPID, TSH #### [facility] [address] [place] [address] Dr. Hugh Landis Urea nitrogen [Mass/Vol] 47.0 mg/dL Critically high 7.0-18.0 [facility] Comment on above: Performed By: #### C MP, LIPID, TSH #### [facility] [address] [place] [address] Dr. Hugh Landis Urea nitrogen/Creatinine [Mass ratio] 17.5 mg/mg Normal [facility] Comment on above: Performed By: #### C MP, LIPID, TSH #### [facility] [address] [place] [address] Dr. Hugh Landis TSHon 08-08-2021 TSH 1.069 uIU/mL Normal 0.358-3.740 [facility] Comment on above: Performed By: #### C MP, LIPID, TSH #### [facility] [address] [place] [address] Dr. Hugh Landis TSH RANGE SEE BELOW Normal [facility] Comment on above: Result Comment: <0.3 4 UIU/ml HYPERTHYROID 0.34-5.60 UIU/ml EUTHYROID >5.60 UIU/ml HYPOTHYROID Performed By: #### C MP, LIPID, TSH #### [facility] [address] [place] [address] Dr. Hugh Landis VITAMIN B12on 08-08-2021 Cobalamin (Vitamin B12) [Mass/Vol] 336.0 pg/mL Normal 193.0-986.0 [facility] Comment on above: Performed By: #### C MP, LIPID, TSH #### [facility] [address] [address] [address] Hugh Landis VITAMIN D 25 OHon 08-08-2021 VIT D 25-OH 36.6 ng/mL Normal [facility] Comment on above: Performed By: #### C MP, LIPID, TSH #### [facility] [address] [address] [address] Hugh Landis VIT D RANGES SEE BELOW Normal [facility] Comment on above: Result Comment: <20 ng/mL Vit D deficient 20 - <30 ng/mL Vit D insufficient 30 - 100 ng/mL Vit D sufficient >100 ng/mL Potential Toxicity Performed By: #### C MP, LIPID, TSH #### [facility] [address] [address] [address] Hugh Landis KNEE RIGHT 3 VWSon 2 KNEE RIGHT 3 S [facility] Department of Radiology [address] [place] [id number] ======== Patient Name: SUKHDEEP SIMENTAL : [...] disruption. Electronically signed: Cole Richmond. Transcribed by: [email or web address], User Resident: Electronically Signed by: COLE RICHMOND @ 07/23/2021 10:50 PM Normal [facility] Comment on above: Order Comment: Evalu ate CBCon 07-18-2021 Erythrocyte distribution width (RBC) [Ratio] 13.5 % Normal 11.8-14.4 [facility] Comment on above: Performed By: #### C BC, PT, PTT, BMP #### [facility] [address] [place] [address] Research And Development Engineer: Good Melendez MD #### ANICOT #### [facility] [address] [place], [place] [id number] Research And Development Engineer: Troy Link MD Hematocrit (Bld) [Volume fraction] 39.1 % Low 40.7-50.3 [facility] Comment on above: Performed By: #### C BC, PT, PTT, BMP #### [facility] [address] [place] [address] Research And Development Engineer: Good Melendez MD #### ANICOT #### [facility] [address] [place] [address] Research And Development Engineer: Troy Link MD Hemoglobin (Bld) [Mass/Vol] 12.3 g/dL Low 13.0-17.0 [facility] Comment on above: Performed By: #### C BC, PT, PTT, BMP #### [address] [address] Research And Development Engineer: Good Melendez MD #### ANICOT #### [facility] [address] [place] [address] Research And Development Engineer: Troy Link MD MCH (RBC) [Entitic mass] 28.8 pg Normal 25.2-33.5 [facility] Comment on above: Performed By: #### C BC, PT, PTT, BMP #### [address] [address] Research And Development Engineer: Good Melendez MD #### ANICOT #### [facility] [address] [place] [address] Research And Development Engineer: Troy Link MD MCHC (RBC) [Mass/Vol] 31.5 g/dL Normal 28.4-34.8 [facility] Comment on above: Performed By: #### C BC, PT, PTT, BMP #### [facility] [address] [place] [address] Research And Development Engineer: Good Melendez MD #### ANICOT #### [facility] [address] [place] [address] Research And Development Engineer: Troy Link MD MCV (RBC) [Entitic vol] 91.6 fL Normal 82.6-102.9 [facility] Comment on above: Performed By: #### C BC, PT, PTT, BMP #### [address] [address] Research And Development Engineer: Good Melendez MD #### ANICOT #### [facility] [address] [place], [place] [id number] Research And Development Engineer: Troy Link MD NRBC Automated 0.0 per 100 WBC Normal 0.0 [facility] Comment on above: Performed By: #### C BC, PT, PTT, BMP #### [address] [address] Research And Development Engineer: Good Melendez MD #### ANICOT #### [facility] [address] [place], [place] [id number] Research And Development Engineer: Troy Link MD Platelet mean volume (Bld) [Entitic vol] 9.7 fL Normal 8.1-13.5 [facility] Comment on above: Performed By: #### C BC, PT, PTT, BMP #### [address] [address] Research And Development Engineer: Good Melendez MD #### ANICOT #### [facility] [address] [place] [address] Research And Development Engineer: Troy Link MD Platelets (Bld) [#/Vol] 190 10*3/uL Normal 138-453 [facility] Comment on above: Performed By: #### C BC, PT, PTT, BMP #### [address] [address] Research And Development Engineer: Good Melendez MD #### ANICOT #### [facility] [address] [place], [place] [id number] Research And Development Engineer: Troy Link MD RBC (Bld) [#/Vol] 4.27 10*6/uL Normal 4.21-5.77 [facility] Comment on above: Performed By: #### C BC, PT, PTT, BMP #### [facility] [address] [place] [address] Research And Development Engineer: Godo Melendez MD #### ANICOT #### [facility] [address] [place], [place] [id number] Research And Development Engineer: Troy Link MD WBC (Bld) [#/Vol] 8.7 10*3/uL Normal 3.5-11.3 [facility] Comment on above: Performed By: #### C BC, PT, PTT, BMP #### [address] [address] Research And Development Engineer: Good Melendez MD #### ANICOT #### [facility] [address] [place] [address] Research And Development Engineer: Troy Link MD APTTon 07-17-2021 aPTT Coag (Bld) [Time] 20.8 s Normal 20.5-30.5 [facility] Comment on above: Result Comment: IV Heparin Therapy Range: 48.6-77.8 Performed By: #### C BC, PT, PTT, BMP #### [address] [address] Research And Development Engineer: Good Melendez MD #### ANICOT #### [facility] [address] [place], [place] [id number] Research And Development Engineer: Troy Link MD aPTT Coag (Bld) [Time] 37.9 s High 20.5-30.5 [facility] Comment on above: Result Comment: IV Heparin Therapy Range: 48.6-77.8 Performed By: #### C BC, PT, PTT, BMP #### [facility] [address] [place] [address] Research And Development Engineer: Good Melendez MD #### ANICOT #### [facility] [address] [place] [address] Research And Development Engineer: Troy Link MD aPTT Coag (Bld) [Time] 78.1 s High 20.5-30.5 [facility] Comment on above: Result Comment: IV Heparin Therapy Range: 48.6-77.8 Performed By: #### C BC, PT, PTT, BMP #### [address] [id number] Research And Development Engineer: Good Melendez MD #### ANICOT #### [facility] [address] [place] [address] Research And Development Engineer: Troy Link MD Basic Metab w/rfx MGon 07-17 (cont.) Normal [facility] Comment on above: Result Comment: Aver age GFR for 50-59 years old: 93 mL/min/1.73sq m Chronic Kidney Disease: <60 mL/min/1.73sq m Kidney failure: <15 mL/min/1.73sq m eGFR calculated using average adult body mass. Additional eGFR calculator available at: http://www.Class[employer] IQ.com/multiple_crcl_2012.htm Performed By: #### C BC, PT, PTT, BMP #### [address] [address] Research And Development Engineer: Good Melendez MD #### ANICOT #### [facility] [address] [place] [address] Research And Development Engineer: Troy Link MD Anion gap [Moles/Vol] 9 mmol/L Normal 9-17 [facility] Comment on above: Performed By: #### C BC, PT, PTT, BMP #### [facility] [address] [place] [address] Research And Development Engineer: Good Melendez MD #### ANICOT #### [facility] [address] [place] [address] Research And Development Engineer: Troy Link MD Calcium [Mass/Vol] 9.3 mg/dL Normal 8.6-10.4 [facility] Comment on above: Performed By: #### C BC, PT, PTT, BMP #### [address] [address] Research And Development Engineer: Good Melendez MD #### ANICOT #### [facility] [address] [place], [place] [id number] Research And Development Engineer: Troy Link MD Chloride [Moles/Vol] 106 mmol/L Normal 98-107 [facility] Comment on above: Performed By: #### C BC, PT, PTT, BMP #### [address] [id number] Research And Development Engineer: Good Melendez MD #### ANICOT #### [facility] [address] [place] [address] Research And Development Engineer: Troy Link MD CO2 [Moles/Vol] 23 mmol/L Normal 20-31 [facility] Comment on above: Performed By: #### C BC, PT, PTT, BMP #### [address] [id number] Research And Development Engineer: Good Melendez MD #### ANICOT #### [facility] [address] [place] [address] Research And Development Engineer: Troy Link MD Creatinine [Mass/Vol] 1.40 mg/dL High 0.70-1.20 [facility] Comment on above: Performed By: #### C BC, PT, PTT, BMP #### [address] [address] Research And Development Engineer: Good Melendez MD #### ANICOT #### [facility] [address] [place], [place] [id number] Research And Development Engineer: Troy Link MD GFR, Amer >60 Normal >60 [facility] Comment on above: Performed By: #### C BC, PT, PTT, BMP #### [address] [address] Research And Development Engineer: Good Melendez MD #### ANICOT #### [facility] [address] [place], [place] [id number] Research And Development Engineer: Troy Link MD GFR,non Amer 52 mL/min Low >60 [facility] Comment on above: Performed By: #### C BC, PT, PTT, BMP #### [address] [id number] Research And Development Engineer: Good Melendez MD #### ANICOT #### [facility] [address] [place], [place] [id number] Research And Development Engineer: Troy Link MD Glucose [Mass/Vol] 170 mg/dL High 70-99 [facility] Comment on above: Performed By: #### C BC, PT, PTT, BMP #### [address] [id number] Research And Development Engineer: Good Melendez MD #### ANICOT #### [facility] [address] [place], [place] [id number] Research And Development Engineer: Troy Link MD Potassium [Moles/Vol] 4.6 mmol/L Normal 3.7-5.3 [facility] Comment on above: Performed By: #### C BC, PT, PTT, BMP #### [address] [id number] Research And Development Engineer: Good Melendez MD #### ANICOT #### [facility] [address] [place], [place] [id number] Research And Development Engineer: Troy Link MD Sodium [Moles/Vol] 138 mmol/L Normal 135-144 [facility] Comment on above: Performed By: #### C BC, PT, PTT, BMP #### [facility] [address] [place] [address] Research And Development Engineer: Good Melendez MD #### ANICOT #### [facility] [address] [place], [place] [id number] Research And Development Engineer: Troy Link MD Urea nitrogen [Mass/Vol] 33 mg/dL High 6-20 [facility] Comment on above: Performed By: #### C BC, PT, PTT, BMP #### [facility] [address] [place] [address] Research And Development Engineer: Good Melendez MD #### ANICOT #### [facility] [address] [place] [address] Research And Development Engineer: Troy Link MD Basic Metabolic Profon 07-17 (cont.) Normal [facility] Comment on above: Result Comment: Aver age GFR for 50-59 years old: 93 mL/min/1.73sq m Chronic Kidney Disease: <60 mL/min/1.73sq m Kidney failure: <15 mL/min/1.73sq m eGFR calculated using average adult body mass. Additional eGFR calculator available at: http://www.Classroom [email or web address] Performed By: #### C BC, PT, PTT, BMP #### [facility] [address] [place] [address] Research And Development Engineer: Good Melnedez MD #### ANICOT #### [facility] [address] [place] [address] Research And Development Engineer: Troy Link MD Anion gap [Moles/Vol] 8 mmol/L Low 9-17 [facility] Comment on above: Performed By: #### C BC, PT, PTT, BMP #### [facility] [address] [place] [address] Research And Development Engineer: Good Melendez MD #### ANICOT #### [facility] [address] [place], [place] [id number] Research And Development Engineer: Troy Link MD Calcium [Mass/Vol] 9.5 mg/dL Normal 8.6-10.4 [facility] Comment on above: Performed By: #### C BC, PT, PTT, BMP #### [address] [address] Research And Development Engineer: Good Melendez MD #### ANICOT #### [facility] [address] [place], [place] [id number] Research And Development Engineer: Troy Link MD Chloride [Moles/Vol] 104 mmol/L Normal 98-107 [facility] Comment on above: Performed By: #### C BC, PT, PTT, BMP #### [address] [address] Research And Development Engineer: Good Melendez MD #### ANICOT #### [facility] [address] [place], [place] [id number] Research And Development Engineer: Troy Link MD CO2 [Moles/Vol] 23 mmol/L Normal 20-31 [facility] Comment on above: Performed By: #### C BC, PT, PTT, BMP #### [address] [address] Research And Development Engineer: Good Melendez MD #### ANICOT #### [facility] [address] [place], [place] [id number] Research And Development Engineer: Troy Link MD Creatinine [Mass/Vol] 1.34 mg/dL High 0.70-1.20 [facility] Comment on above: Performed By: #### C BC, PT, PTT, BMP #### [address] [address] Research And Development Engineer: Good Melendez MD #### ANICOT #### [facility] [address] [place] [address] Research And Development Engineer: Troy Link MD GFR, Amer >60 Normal >60 [facility] Comment on above: Performed By: #### C BC, PT, PTT, BMP #### [address] [address] Research And Development Engineer: Good Melendez MD #### ANICOT #### [facility] [address] [place] [address] Research And Development Engineer: Troy Link MD GFR,non Amer 55 mL/min Low >60 [facility] Comment on above: Performed By: #### C BC, PT, PTT, BMP #### [address] [address] Research And Development Engineer: Good Melendez MD #### ANICOT #### [facility] [address] [place], [place] [id number] Research And Development Engineer: Troy Link MD Glucose [Mass/Vol] 136 mg/dL High 70-99 [facility] Comment on above: Performed By: #### C BC, PT, PTT, BMP #### [address] [address] Research And Development Engineer: Good Melendez MD #### ANICOT #### [facility] [address] [place] [address] Research And Development Engineer: Troy Link MD Potassium [Moles/Vol] 4.7 mmol/L Normal 3.7-5.3 [facility] Comment on above: Performed By: #### C BC, PT, PTT, BMP #### [address] [address] Research And Development Engineer: Good Melendez MD #### ANICOT #### [facility] [address] [place], [place] [id number] Research And Development Engineer: Troy Link MD Sodium [Moles/Vol] 135 mmol/L Normal 135-144 [facility] Comment on above: Performed By: #### C BC, PT, PTT, BMP #### [facility] [address] [place] [address] Research And Development Engineer: Good Melendez MD #### ANICOT #### [facility] [address] [place] [address] Research And Development Engineer: Troy Link MD Urea nitrogen [Mass/Vol] 31 mg/dL High 6-20 [facility] Comment on above: Performed By: #### C BC, PT, PTT, BMP #### [facility] [address] [place] [address] [phone] Research And Development Engineer: Good Melendez MD #### ANICOT #### [facility] [address] [place], [place] [id number] Research And Development Engineer: Troy Link MD Fibrinogenon 07-17-2021 Fibrinogen 404 mg/dL Normal 140-420 [facility] Comment on above: Performed By: #### C BC, PT, PTT, BMP #### [facility] [address] [place] [address] Research And Development Engineer: Good Melendez MD #### ANICOT #### [facility] [address] [place], [place] [id number] Research And Development Engineer: Troy Link MD Fibrinogen 395 mg/dL Normal 140-420 [facility] Comment on above: Performed By: #### C BC, PT, PTT, BMP #### [facility] [address] [place] [address] Research And Development Engineer: Good Melendez MD #### ANICOT #### [facility] [address] [place] [address] Research And Development Engineer: Troy Link MD Hemoglobin A1Con 07-17-2021 Glucose [Mass/Vol] 169 mg/dL Normal [facility] Comment on above: Result Comment: The ADA and AACC recommend providing the estimated average glucose result to permit better patient understanding of their HBA1c result. Performed By: #### C BC, PT, PTT, BMP #### [facility] [address] [place] [address] Research And Development Engineer: Good Melendez MD #### ANICOT #### [facility] [address] [place], [place] [id number] Research And Development Engineer: Troy Link MD HbA1c (Bld) [Mass fraction] 7.5 % High 4.0-6.0 [facility] Comment on above: Performed By: #### C BC, PT, PTT, BMP #### [address] [phone] Research And Development Engineer: Good Melendez MD #### ANICOT #### [facility] [address] [place] [address] Research And Development Engineer: Troy Link MD PTon 07-17-2021 INR Coag (PPP) [Relative time] 1.2 {INR} Normal [facility] Comment on above: Result Comment: Therapeutic Range: Moderate Anticoagulant Intensity: INR = 2.0-3.0 High Anticoagulant Intensity: INR = 2.5-3.5 Performed By: #### C BC, PT, PTT, BMP #### [facility] [address] [place] [address] Research And Development Engineer: Good Melendez MD #### ANICOT #### [facility] [address] [place] [address] Research And Development Engineer: Troy Link MD PT Coag (PPP) [Time] 12.6 s High 9.1-12.3 [facility] Comment on above: Performed By: #### C BC, PT, PTT, BMP #### [facility] [address] [place] [address] Research And Development Engineer: Good Melendez MD #### ANICOT #### [facility] [address] [place] [address] Research And Development Engineer: Troy Link MD Troponinon 07-17-2021 Troponin, High Sens 38 ng/L High 0-22 [facility] Comment on above: Result Comment: High Sensitivity Troponin values cannot be compared with other Troponin methodologies. Patients with high levels of Biotin oral intake (i.e >5mg/day) may have falsely decreased Troponin levels. Samples collected within 8 hours of biotin intake may require additional information for diagnosis. Performed By: #### C BC, PT, PTT, BMP #### [address] [address] Research And Development Engineer: Good Melendez MD #### ANICOT #### [facility] [address] [place] [address] Research And Development Engineer: Troy Link MD APTTon 6 aPTT Coag (Bld) [Time] 51.1 s High 20.5-30.5 [facility] Comment on above: Result Comment: IV Heparin Therapy Range: 48.6-77.8 Performed By: #### C BC, PT, PTT, BMP #### [address] [address] Research And Development Engineer: Good Melendez MD #### ANICOT #### [facility] [address] [place] [address] Research And Development Engineer: Troy Link MD aPTT Coag (Bld) [Time] 31.1 s High 20.5-30.5 [facility] Comment on above: Result Comment: IV Heparin Therapy Range: 48.6-77.8 Performed By: #### C BC, PT, PTT, BMP #### [facility] [address] [place] [address] Research And Development Engineer: Good Melendez MD #### ANICOT #### [facility] [address] [place] [address] Research And Development Engineer: Troy Link MD Brain Natri. Peptideon 07-16 Natriuretic peptide B (Bld) [Mass/Vol] 1492 pg/mL High <300 [facility] Comment on above: Result Comment: An age-independent cutoff point of 300 pg/ml has a 98% negative predictive value excluding acute heart failure. Performed By: #### C BC, PT, PTT, BMP #### [facility] [address] [place] [address] Research And Development Engineer: Good Melendez MD #### ANICOT #### [facility] [address] [place] [address] Research And Development Engineer: Troy Link [facility] Erythrocyte distribution width (RBC) [Ratio] 13.6 % Normal 11.8-14.4 [facility] Comment on above: Performed By: #### C BC, PT, PTT, BMP #### [address] [address] Research And Development Engineer: Good Melendez MD #### ANICOT #### [facility] [address] [place] [address] Research And Development Engineer: Troy Link MD Hematocrit (Bld) [Volume fraction] 40.3 % Low 40.7-50.3 [facility] Comment on above: Performed By: #### C BC, PT, PTT, BMP #### [facility] [address] [place] [address] [phone] Research And Development Engineer: Good Melendez MD #### ANICOT #### [facility] [address] [place] [address] Research And Development Engineer: Troy Link MD Hemoglobin (Bld) [Mass/Vol] 13.0 g/dL Normal 13.0-17.0 [facility] Comment on above: Performed By: #### C BC, PT, PTT, BMP #### [address] [phone] Research And Development Engineer: Good Melendez MD #### ANICOT #### [facility] [address] [place] [address] Research And Development Engineer: Troy Link MD MCH (RBC) [Entitic mass] 28.7 pg Normal 25.2-33.5 [facility] Comment on above: Performed By: #### C BC, PT, PTT, BMP #### [address] [phone] Research And Development Engineer: Good Melendez MD #### ANICOT #### [facility] [address] [place] [phone] Research And Development Engineer: Troy Link MD MCHC (RBC) [Mass/Vol] 32.3 g/dL Normal 28.4-34.8 [facility] Comment on above: Performed By: #### C BC, PT, PTT, BMP #### [address] [phone] Research And Development Engineer: Good Melendez MD #### ANICOT #### [facility] [address] [place], [place] [id number] Research And Development Engineer: Troy Link MD MCV (RBC) [Entitic vol] 89.0 fL Normal 82.6-102.9 [facility] Comment on above: Performed By: #### C BC, PT, PTT, BMP #### [address] [phone] Research And Development Engineer: Good Melendez MD #### ANICOT #### [facility] [address] [place], [place] [id number] Research And Development Engineer: Troy Link MD NRBC Automated 0.0 per 100 WBC Normal 0.0 [facility] Comment on above: Performed By: #### C BC, PT, PTT, BMP #### [address] [address] Research And Development Engineer: Good Melendez MD #### ANICOT #### [facility] [address] [place] [address] Research And Development Engineer: Troy Link MD Platelet mean volume (Bld) [Entitic vol] 9.6 fL Normal 8.1-13.5 [facility] Comment on above: Performed By: #### C BC, PT, PTT, BMP #### [address] [address] Research And Development Engineer: Good Melendez MD #### ANICOT #### [facility] [address] [place] [address] Research And Development Engineer: Troy Link MD Platelets (Bld) [#/Vol] 203 10*3/uL Normal 138-453 [facility] Comment on above: Performed By: #### C BC, PT, PTT, BMP #### [address] [address] Research And Development Engineer: Good Melendez MD #### ANICOT #### [facility] [address] [place] [address] Research And Development Engineer: Troy Link MD RBC (Bld) [#/Vol] 4.53 10*6/uL Normal 4.21-5.77 [facility] Comment on above: Performed By: #### C BC, PT, PTT, BMP #### [address] [address] Research And Development Engineer: Good Melendez MD #### ANICOT #### [facility] [address] [place] [address] Research And Development Engineer: Troy Link MD WBC (Bld) [#/Vol] 6.8 10*3/uL Normal 3.5-11.3 [facility] Comment on above: Performed By: #### C BC, PT, PTT, BMP #### [facility] [address] [place] [address] Research And Development Engineer: Good Melendez MD #### ANICOT #### [facility] [address] [place] [address] Research And Development Engineer: Troy Link MD Troponinon 07-16-2021 Troponin, High Sens 59 ng/L Critically high 0- [facility] Comment on above: Result Comment: High Sensitivity Troponin values cannot be compared with other Troponin methodologies. Patients with high levels of Biotin oral intake (i.e >5mg/day) may have falsely decreased Troponin levels. Samples collected within 8 hours of biotin intake may require additional information for diagnosis. Performed By: #### C BC, PT, PTT, BMP #### [facility] [address] [address] [place] [address] Research And Development Engineer: Good Melendez MD #### ANICOT #### [facility] [address] [place] [address] Research And Development Engineer: Troy Link MD EKG 12 LeadOrdered By: Matias Varela on 05-26-2021 Atrial Rate 108 BPM [employer] Phone: P [place] -96 degrees [employer] Phone: P-R Interval 192 ms [employer] Phone: Q-T Interval 348 ms [employer] Phone: QRS Duration 94 ms [employer] Phone: QTc Calculation (Bazett) 466 ms [employer] Phone: R [place] -116 degrees [employer] Phone: T [place] -114 degrees [facility] [employer] Phone: Ventricular Rate 108 BPM [employer] Work Phone: [employer] Work Phone: EKG 12 Leadon 05-26-2021 Arm lead reversal Sinus Tachycardia V Leads placement error Repeat ECG When compared with ECG of 08-MAY-2021 11:42, Significant changes have occurred [facility] STV Matias Andrade MD - 05/26/2021 Arm lead reversal Sinus Tachycardia V Leads placement error Repeat ECG When compared with ECG of 08-MAY-2021 11:42, Significant changes have occurred [employer] Work Phone: SURGICAL PATHOLOGY REPORTon 05-26-2021 Surgical [...] with no areas of granularity or masses. 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 tm Microscopic Description Sections of gastric wall show lamina propria without evidence of significant inflammation. There is no evidence of intestinal metaplasia or dysplasia. There is no evidence of organisms suspicious for Helicobacter with the routine H&E stain. SURGICAL PATHOLOGY CONSULTATION Patient Name: SUKHDEEP SIMENTAL [facility] Rec: [id number] Path Number: [id number] [facility] ANATOMIC PATHOLOGY [address] [place] [address]. [place], [place] [address] [facility] UTILIC[facility] Basic Metabolic Panelon 03-3 Anion gap [Moles/Vol] 10 mmol/L 9 - 17 mmol/L [employer] [facility] Calcium [Mass/Vol] 9.1 mg/dL 8.6 - 10. 4 mg/dL [employer] [facility] Chloride [Moles/Vol] 106 mmol/L 98 - 10 7 mmol/L [employer] CO2 [Moles/Vol] 23 mmol/L 20 - 31 mmol/L [facility] Creatinine [Mass/Vol] 1.1 mg/dL 0.70 - 1.20 mg/dL [facility] UTILICASE GFR >60 >60 mL/min [facility] GFR Non- >60 >60 mL/min [facility] GFR/1.73 sq M.predicted MDRD (S/P/Bld) [Vol rate/Area] [facility] Comment on above: Average GFR for 50-5 9 years old: 93 mL/min/1.73sq m Chronic Kidney Disease: <60 mL/min/1.73sq m Kidney failure: <15 mL/min/1.73sq m eGFR calculated using average adult body mass. Additional eGFR calculator available at: [email or web address]_[email or web address] Glucose [Mass/Vol] 127 mg/dL High 70 - 99 mg/dL [facility] Interpretation and review of laboratory results Abnormal [facility] Potassium [Moles/Vol] 4.8 mmol/L 3.7 - 5.3 mmol/L [facility] UTILICASE Sodium [Moles/Vol] 139 mmol/L 135 - 144 mmol/L [facility] Urea nitrogen (BldV) [Mass/Vol] 24 mg/dL High 6 - 20 mg/dL [facility] Basic Metabolic Profon 05-25 (cont.) Normal [facility] Comment on above: Result Comment: Aver age GFR for 50-59 years old: 93 mL/min/1.73sq m Chronic Kidney Disease: <60 mL/min/1.73sq m Kidney failure: <15 mL/min/1.73sq m eGFR calculated using average adult body mass. Additional eGFR calculator available at: [email or web address]_[email or web address] Performed By: #### C BC, PT, PTT, BMP #### [facility] [address] [place] [address] Research And Development Engineer: Good Melendez MD #### KATIEICOT #### [facility] [address] [place] [address] Research And Development Engineer: Troy Link MD Anion gap [Moles/Vol] 10 mmol/L Normal 9-17 [facility] Comment on above: Performed By: #### C BC, PT, PTT, BMP #### [address] [address] Research And Development Engineer: Good Melendez MD #### ANICOT #### [facility] [address] [place], [place] [id number] Research And Development Engineer: Troy Link MD Calcium [Mass/Vol] 9.1 mg/dL Normal 8.6-10.4 [facility] Comment on above: Performed By: #### C BC, PT, PTT, BMP #### [address] [phone] Research And Development Engineer: Good Melendez MD #### ANICOT #### [address] [address] Research And Development Engineer: Troy Link MD Chloride [Moles/Vol] 106 mmol/L Normal 98-107 [facility] Comment on above: Performed By: #### C BC, PT, PTT, BMP #### [address] [address] Research And Development Engineer: Good Melendez MD #### ANICOT #### [address] [phone] Research And Development Engineer: Troy Link MD CO2 [Moles/Vol] 23 mmol/L Normal 20-31 [facility] Comment on above: Performed By: #### C BC, PT, PTT, BMP #### [address] [address] Research And Development Engineer: Good Melendez MD #### ANICOT #### [facility] [address] [place] [address] Research And Development Engineer: Troy Link MD Creatinine [Mass/Vol] 1.10 mg/dL Normal 0.70-1.20 [facility] Comment on above: Performed By: #### C BC, PT, PTT, BMP #### [address] [address] Research And Development Engineer: Good Melendez MD #### ANICOT #### [facility] [address] [place], [place] [id number] Research And Development Engineer: Troy Link MD GFR, Amer >60 Normal >60 [facility] Comment on above: Performed By: #### C BC, PT, PTT, BMP #### [address] [address] Research And Development Engineer: Good Melendez MD #### ANICOT #### [facility] [address] [place] [address] Research And Development Engineer: Troy Link MD GFR,non Amer >60 Normal >60 [facility] Comment on above: Performed By: #### C BC, PT, PTT, BMP #### [address] [address] Research And Development Engineer: Good Melendez MD #### ANICOT #### [facility] [address] [place], [place] [id number] Research And Development Engineer: Troy Link MD Glucose [Mass/Vol] 127 mg/dL High 70-99 [facility] Comment on above: Performed By: #### C BC, PT, PTT, BMP #### [address] [address] Research And Development Engineer: Good Melendez MD #### ANICOT #### [facility] [address] [place], [place] [id number] Research And Development Engineer: Troy Link MD Potassium [Moles/Vol] 4.8 mmol/L Normal 3.7-5.3 [facility] Comment on above: Performed By: #### C BC, PT, PTT, BMP #### [facility] [place], [place] [id number] Research And Development Engineer: Good Melendez MD #### ANICOT #### [facility] [address] [place], [place] [id number] Research And Development Engineer: Troy Link MD Sodium [Moles/Vol] 139 mmol/L Normal 135-144 [facility] Comment on above: Performed By: #### C BC, PT, PTT, BMP #### [address] [id number] Research And Development Engineer: Good Melendez MD #### ANICOT #### [facility] [address] [place] [address] Research And Development Engineer: Troy Link MD Urea nitrogen [Mass/Vol] 24 mg/dL High 6-20 [facility] Comment on above: Performed By: #### C BC, PT, PTT, BMP #### [address] [phone] Research And Development Engineer: Good Melendez MD #### ANICOT #### [facility] [address] [place] [address] Research And Development Engineer: Troy Link MD CBCon 05-25-2021 Erythrocyte distribution width (RBC) [Ratio] 13.9 % Normal 11.8-14.4 [facility] Comment on above: Performed By: #### C BC, PT, PTT, BMP #### [address] [id number] Research And Development Engineer: Good Melendez MD #### ANICOT #### [facility] [address] [place] [address] Research And Development Engineer: Troy Link MD Hematocrit (Bld) [Volume fraction] 39.5 % Low 40.7-50.3 [facility] Comment on above: Performed By: #### C BC, PT, PTT, BMP #### [address] [phone] Research And Development Engineer: Good Melendez MD #### ANICOT #### [facility] [address] [place], [place] [id number] Research And Development Engineer: Troy Link MD Hemoglobin (Bld) [Mass/Vol] 12.2 g/dL Low 13.0-17.0 [facility] Comment on above: Performed By: #### C BC, PT, PTT, BMP #### [address] [phone] Research And Development Engineer: Good Melendez MD #### ANICOT #### [facility] [address] [place] [id number] Research And Development Engineer: Troy Link MD MCH (RBC) [Entitic mass] 30.2 pg Normal 25.2-33.5 [facility] Comment on above: Performed By: #### C BC, PT, PTT, BMP #### [address] [phone] Research And Development Engineer: Good Melendez MD #### ANICOT #### [facility] [address] [place], [place] [id number] Research And Development Engineer: Troy Link MD MCHC (RBC) [Mass/Vol] 30.9 g/dL Normal 28.4-34.8 [facility] Comment on above: Performed By: #### C BC, PT, PTT, BMP #### [address] [id number] Research And Development Engineer: Good Melendez MD #### ANICOT #### [facility] [address] [place], [place] [id number] Research And Development Engineer: Troy Link MD MCV (RBC) [Entitic vol] 97.8 fL Normal 82.6-102.9 [facility] Comment on above: Performed By: #### C BC, PT, PTT, BMP #### [address] [address] Research And Development Engineer: Good Melendez MD #### ANICOT #### [facility] [address] [place], [place] [id number] Research And Development Engineer: Troy Link MD NRBC Automated 0.0 per 100 WBC Normal 0.0 [facility] Comment on above: Performed By: #### C BC, PT, PTT, BMP #### [address] [address] Research And Development Engineer: Good Melendez MD #### ANICOT #### [facility] [address] [place], [place] [id number] Research And Development Engineer: Troy Link MD Platelet mean volume (Bld) [Entitic vol] 8.8 fL Normal 8.1-13.5 [facility] Comment on above: Performed By: #### C BC, PT, PTT, BMP #### [address] [address] Research And Development Engineer: Good Melendez MD #### ANICOT #### [facility] [address] [place], [place] [id number] Research And Development Engineer: Troy Link MD Platelets (Bld) [#/Vol] 263 10*3/uL Normal 138-453 [facility] Comment on above: Performed By: #### C BC, PT, PTT, BMP #### [address] [address] Research And Development Engineer: Good Melendez MD #### ANICOT #### [facility] [address] [place], [place] [id number] Research And Development Engineer: Troy Link MD RBC (Bld) [#/Vol] 4.04 10*6/uL Low 4.21-5.77 [facility] Comment on above: Performed By: #### C BC, PT, PTT, BMP #### [facility] [address] [place] [address] Research And Development Engineer: Good Melendez MD #### ANICOT #### [facility] [address] [place], [place] [id number] Research And Development Engineer: Troy Link MD WBC (Bld) [#/Vol] 10.8 10*3/uL Normal 3.5-11.3 [facility] Comment on above: Performed By: #### C BC, PT, PTT, BMP #### [facility] [facility] [place], [place] [id number] Research And Development Engineer: Good Melendez MD #### ANICOT #### [facility] [facility] [address] [place] [address] Research And Development Engineer: Troy Link MD Hematocrit (Bld) [Volume fraction] 39.5 % Low 40.7 - 50.3 % [facility] Hemoglobin.gastroint estinal spec 1 Ql (Stl) 12.2 g/dL Low 13.0 - 17.0 g/dL [facility] Interpretation and review of laboratory results Abnormal [facility] UTILICASE MCH (RBC) [Entitic mass] 30.2 pg 25.2 - 33.5 pg [facility] UTILICASE MCHC (RBC) [Mass/Vol] 30.9 g/dL 28.4 - 34.8 g/dL [facility] MCV (RBC) [Entitic vol] 97.8 fL 82.6 - 102.[address] [facility] NRBC Automated 0.0 0.0 per [address] [facility] Platelet distribution width (Bld) [Ratio] 13.9 % 11.8 - 14.4 % [facility] Platelet mean volume (Bld) [Entitic vol] 8.8 fL 8.1 - 13.5 fL [facility] UTILICASE Platelets (Bld) [#/Vol] 263 10*3/uL [facility] UTILICASE RBC (Bld) [#/Vol] 4.04 10*6/uL Low 4.21 - 5.7 7 m/uL [facility] WBC (Bld) [#/Vol] 10.8 10*3/uL [facility] Magnesiumon 05-25-2021 Magnesium [Mass/Vol] 1.9 mg/dL Normal 1.6-2.6 [facility] Comment on above: Performed By: #### C BC, PT, PTT, BMP #### [facility] [address] [place] [address] Research And Development Engineer: Good Melendez MD #### ANAPARNAT #### [facility] [address] [place], [place] [phone] Research And Development Engineer: Troy Link MD Magnesium [Mass/Vol] 1.9 mg/dL 1.6 - 2 .6 mg/dL [facility] Surgical Pathologyon 022 Surgical Pathology [...] with no areas of granularity or masses. 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 tm Microscopic Description Sections of gastric wall show lamina propria without evidence of significant inflammation. There is no evidence of intestinal metaplasia or dysplasia. There is no evidence of organisms suspicious for Helicobacter with the routine CANDY stain. SURGICAL PATHOLOGY CONSULTATION Patient Name: SUKHDEEP SIMENTAL [facility] Rec: [id number] Path Number: [id number] [employer] [facility] ANATOMIC PATHOLOGY [address] [place] [phone] Normal [facility] Comment on above: Performed By: #### C BC, PT, PTT, BMP #### [employer] [facility] [address] [place] [address] Research And Development Engineer: Good Melendez MD #### ANICOT #### [facility] [address] [place] [address] Research And Development Engineer: Troy Link MD Basic Metabolic Panelon 04-27 Anion gap [Moles/Vol] 13 mmol/L 9 - 17 mmol/L [facility] Calcium [Mass/Vol] 9.1 mg/dL 8.6 - 10. 4 mg/dL [facility] Chloride [Moles/Vol] 102 mmol/L 98 - 10 7 mmol/L [facility] CO2 [Moles/Vol] 17 mmol/L Low 20 - 31 mmol/L [facility] Creatinine [Mass/Vol] 1.16 mg/dL 0.70 - 1.20 mg/dL [facility] GFR >60 >60 mL/min Geno GFR Non- >60 >60 mL/min [facility] GFR/1.73 sq M.predicted MDRD (S/P/Bld) [Vol rate/Area] [facility] Comment on above: Average GFR for 50-5 9 years old: 93 mL/min/1.73sq m Chronic Kidney Disease: <60 mL/min/1.73sq m Kidney failure: <15 mL/min/1.73sq m eGFR calculated using average adult body mass. Additional eGFR calculator available at: http://www.Classroom IQ.ACell/multiple_crcl_2011.htm Glucose [Mass/Vol] 203 mg/dL High 70 - 99 mg/dL [facility] Interpretation and review of laboratory results Abnormal [facility] Potassium [Moles/Vol] 4.2 mmol/L 3.7 - 5.3 mmol/L [facility] Sodium [Moles/Vol] 132 mmol/L Low 135 - 144 mmol/L [facility] Urea nitrogen (BldV) [Mass/Vol] 29 mg/dL High 6 - 20 mg/dL [employer] Basic Metabolic Profon 05-24 (cont.) Normal [facility] Comment on above: Result Comment: Aver age GFR for 50-59 years old: 93 mL/min/1.73sq m Chronic Kidney Disease: <60 mL/min/1.73sq m Kidney failure: <15 mL/min/1.73sq m eGFR calculated using average adult body mass. Additional eGFR calculator available at: http://www.Classroom IQ.ACell/multiple_crcl_2012.htm Performed By: #### C BC, BMP #### [facility] [address] [place] [address] Research And Development Engineer: Good Melendez MD Anion gap [Moles/Vol] 13 mmol/L Normal 9-17 [facility] Comment on above: Performed By: #### C BC, BMP #### [facility] [address] [place] [address] Research And Development Engineer: Good Melendez MD Calcium [Mass/Vol] 9.1 mg/dL Normal 8.6-10.4 [facility] Comment on above: Performed By: #### C BC, BMP #### [facility] [address] [place] [address] Research And Development Engineer: Good Melendez MD Chloride [Moles/Vol] 102 mmol/L Normal 98-107 [facility] Comment on above: Performed By: #### C BC, BMP #### [facility] [address] [place] [address] Research And Development Engineer: Good Melendez MD CO2 [Moles/Vol] 17 mmol/L Low 20-31 [facility] Comment on above: Performed By: #### C BC, BMP #### [facility] [address] [place] [address] Research And Development Engineer: Good Melendez MD Creatinine [Mass/Vol] 1.16 mg/dL Normal 0.70-1.20 [facility] Comment on above: Performed By: #### C BC, BMP #### [facility] [address] [place] [address] Research And Development Engineer: Good Melendez MD GFR, Amer >60 Normal >60 [facility] Comment on above: Performed By: #### C BC, BMP #### [facility] [address] [place] [address] Research And Development Engineer: Good Melendez MD GFR,non Amer >60 Normal >60 [facility] Comment on above: Performed By: #### C BC, BMP #### [facility] [address] [place] [address] Research And Development Engineer: Good Melendez MD Glucose [Mass/Vol] 203 mg/dL High 70-99 [facility] Comment on above: Performed By: #### C BC, BMP #### [facility] [address] [place] [address] Research And Development Engineer: Good Melendez MD Potassium [Moles/Vol] 4.2 mmol/L Normal 3.7-5.3 [facility] Comment on above: Performed By: #### C BC, BMP #### [facility] [address] [place] [address] Research And Development Engineer: Good Melendez MD Sodium [Moles/Vol] 132 mmol/L Low 135-144 [facility] Comment on above: Performed By: #### C BC, BMP #### [facility] [address] [place] [address] Research And Development Engineer: Good Melendez MD Urea nitrogen [Mass/Vol] 29 mg/dL High 6-20 [facility] Comment on above: Performed By: #### C BC, BMP #### [facility] [address] [place] [address] Research And Development Engineer: Good Melendez MD CBCon 05-24-2021 Erythrocyte distribution width (RBC) [Ratio] 14.0 % Normal 11.8-14.4 [facility] Comment on above: Performed By: #### C BC, BMP #### [address] [address] Research And Development Engineer: Good Melendez MD Hematocrit (Bld) [Volume fraction] 41.0 % Normal 40.7-50.3 [facility] Comment on above: Performed By: #### C BC, BMP #### [address] [address] Research And Development Engineer: Good Melendez MD Hemoglobin (Bld) [Mass/Vol] 12.7 g/dL Low 13.0-17.0 [facility] Comment on above: Performed By: #### C BC, BMP #### [address] [address] Research And Development Engineer: Good Melendez MD MCH (RBC) [Entitic mass] 29.5 pg Normal 25.2-33.5 [facility] Comment on above: Performed By: #### C BC, BMP #### [address] [address] Research And Development Engineer: Good Melendez MD MCHC (RBC) [Mass/Vol] 31.0 g/dL Normal 28.4-34.8 [facility] Comment on above: Performed By: #### C BC, BMP #### [address] [address] Research And Development Engineer: Good Melendez MD MCV (RBC) [Entitic vol] 95.3 fL Normal 82.6-102.9 [facility] Comment on above: Performed By: #### C BC, BMP #### [address] [address] Research And Development Engineer: Good Melendez MD NRBC Automated 0.0 per 100 WBC Normal 0.0 [facility] Comment on above: Performed By: #### C BC, BMP #### [address] [address] Research And Development Engineer: Good Melendez MD Platelet mean volume (Bld) [Entitic vol] 8.8 fL Normal 8.1-13.5 [facility] Comment on above: Performed By: #### C JASE, BMP #### [facility] [place] [address] Research And Development Engineer: Good Melendez MD Platelets (Bld) [#/Vol] 273 10*3/uL Normal 138-453 [facility] Comment on above: Performed By: #### C JASE, BMP #### [facility] [place] [address] Research And Development Engineer: Good Melendez MD RBC (Bld) [#/Vol] 4.30 10*6/uL Normal 4.21-5.77 [facility] Comment on above: Performed By: #### Bennett LAGUNA, BMP #### [facility] [address] [place] [address] Research And Development Engineer: Good Melendez MD WBC (Bld) [#/Vol] 9.6 10*3/uL Normal 3.5-11.3 [facility] Comment on above: Performed By: #### C JASE, BMP #### [facility] [address] [place] [address] Research And Development Engineer: Good Melendez MD CBC without Diffon Hematocrit (Bld) [Volume fraction] 41.0 % 40.7 - 50.3 % [facility] Hemoglobin.gastroint estinal spec 1 Ql (Stl) 12.7 g/dL Low 13.0 - 17.0 g/dL [facility] Interpretation and review of laboratory results Abnormal [facility] MCH (RBC) [Entitic mass] 29.5 pg 25.2 - 33.5 pg [facility] MCHC (RBC) [Mass/Vol] 31.0 g/dL 28.4 - 34.8 g/dL [facility] MCV (RBC) [Entitic vol] 95.3 fL 82.6 - 102.9 fL [facility] NRBC Automated 0.0 0.0 per 100 WBC [facility] Platelet distribution width (Bld) [Ratio] 14.0 % 11.8 - 14.4 % [facility] Platelet mean volume (Bld) [Entitic vol] 8.8 fL 8.1 - 13.5 fL [facility] Platelets (Bld) [#/Vol] 273 10*3/uL [facility] RBC (Bld) [#/Vol] 4.30 10*6/uL 4.21 - 5.7 7 m/uL [facility] WBC (Bld) [#/Vol] 9.6 10*3/uL [facility] COVID-19, Rapidon 05-24-2021 SARS-CoV-2 (COVID-19) RNA MUKUL+probe Ql (Unsp spec) Not detected Not Detected [facility] Comment on above: Rapid NAAT: The specimen [...] management decisions. Fact sheet for Healthcare Providers: https://www.fda.gov/media/969211/download Fact sheet for Patients: https://www.fda.gov/media/604048/download Methodology: Isothermal Nucleic Acid Amplification Specimen Description .NASOPHARYNGEAL SWAB [facility] Calcium, Ionicon 05-24-2021 Calcium [Moles/Vol] 1.31 mmol/L Normal 1.13-1.33 [facility] Comment on above: Performed By: #### I BRAVO MG, BRITTANIE #### [facility] [address] [place], [place] [phone] Research And Development Engineer: Good Melendez MD Calcium, Ionizedon 03-30-202 2 Calcium [Moles/Vol] 1.31 mmol/L 1.13 - 1 .33 mmol/L [facility] Magnesiumon 05-24-2021 Magnesium [Mass/Vol] 2.0 mg/dL Normal 1.6-2.6 [facility] Comment on above: Performed By: #### C BC, PT, PTT, BMP #### [facility] [address] [place], [place] [phone] Research And Development Engineer: Good Melendez MD #### ANICOT #### [facility] [address] [place] [address] Research And Development Engineer: Troy Link MD Magnesium [Mass/Vol] 2.0 mg/dL 1.6 - 2 .6 mg/dL [facility] No Panel Informationon 05-24 [facility] POC Glucose Fingerstickon Glucose [Mass/Vol] 199 mg/dL High 75 - 110 mg/dL [facility] Interpretation and review of laboratory results Abnormal [facility] Glucose [Mass/Vol] 209 mg/dL High 75 - 110 mg/dL [facility] Interpretation and review of laboratory results Abnormal [facility] POCT Glucoseon 05-24-2021 Glucose [Mass/Vol] 150 mg/dL High 74 - 100 mg/dL [facility] Interpretation and review of laboratory results Abnormal [facility] POTASSIUM (POC)on 05-24-2021 Potassium [Moles/Vol] 3.9 mmol/L 3.5 - 4.5 mmol/L [facility] Phosphoruson 05-24-2021 Phosphate [Mass/Vol] 3.8 mg/dL 2.5 - 4 .5 mg/dL [facility] Phosphorus, Inorg.on 022 Phosphorus, Inorg. 3.8 mg/dL Normal 2.5-4.5 [facility] Comment on above: Performed By: #### C BC, PT, PTT, BMP #### [facility] [address] [place], [place] [phone] Research And Development Engineer: Good Melendez MD #### ANICOT #### [facility] [address] [place] [address] Research And Development Engineer: Troy Link MD [id number] 05-24-2021 SARS-CoV-2 (COVID-19) RNA MUKUL+probe Ql (Unsp spec) Not detected [facility] Comment on above: Result Comment: Rapid [...] management decisions. Fact sheet for Healthcare Providers: https://www.fda.gov/media/072297/download Fact sheet for Patients: https://www.fda.gov/media/241843/download Methodology: Isothermal Nucleic Acid Amplification Performed By: #### C OVRB #### [facility] [address] [place] [address] Research And Development Engineer: Good Melendez MD Nicotineon 05-11-2021 [id number] <2 Normal [facility] Comment on above: Performed By: #### C BC, PT, PTT, BMP #### [facility] [address] [place] [address] Research And Development Engineer: Good Melendez MD #### ANICOT #### [facility] [address] [place] [address] Research And Development Engineer: Troy Link MD Cotinine <2 Normal [facility] Comment on above: Performed By: #### C BC, PT, PTT, BMP #### [facility] [address] [place] [address] [phone] Research And Development Engineer: Good Melendez MD #### ANICOT #### [address] [address] Research And Development Engineer: Troy Link MD Nicotine <2 Normal [facility] Comment on above: Result Comment: (NOT E) [...] developed and its performance characteristics determined by [facility]. It has not been cleared or approved by the [place] Food and Drug Administration. This test was performed in a CLIA certified laboratory and is intended for clinical purposes. Performed By: [facility] [address] [place] [phone] Portuguese Tutor: Ayse Diaz MD Performed By: #### C BC, PT, PTT, BMP #### [facility] [address] [place] [address] Research And Development Engineer: Good Melendez MD #### ANICOT #### [facility] [address] [place] [address] Research And Development Engineer: Troy Link MD Nicotine, Bloodon 05-11-2021 [id number] <2 ng/mL [facility] Cotinine <2 ng/mL [facility] Nicotine <2 ng/mL [facility] Comment on above: (NOTE) Consistent with abstinence [...] developed and its performance characteristics determined by [facility]. It has not been cleared or approved by the US Food and Drug Administration. This test was performed in a CLIA certified laboratory and is intended for clinical purposes. Performed By: [facility] [address] [place] [id number] Portuguese Tutor: Ayse Diaz MD [facility] UTILICASE EKG 12 LeadOrdered By: Unkno wn Result on 05-09-2021 Atrial Rate 122 BPM [facility] P [place] 55 degrees [facility] P-R Interval 164 ms [facility] Q-T Interval 298 ms [facility] QRS Duration 84 ms [facility] QTc Calculation (Bazett) 424 ms [facility] R [place] -11 degrees [employer] [facility] T [place] 42 degrees [employer] [facility] Ventricular Rate 122 BPM [facility] alth [facility] UTILICASE EKG 12 Leadon 05-09-2021 Sinus tachycardia Otherwise normal ECG No previous ECGs available [facility] ST[facility] MUSE Result, Unknown Provider - 05/09/2021 Sinus tachycardia Otherwise normal ECG No previous ECGs available [facility] Work Phone: XR CHEST (2 VW)on 05-09-2021 [...] Singh Calero MD 05/09/21 Final result Normal [facility] No acute airspace disease identified. [facility] EXAMINATION: TWO XRAY VIEWS OF THE CHEST [...] effusion. No acute osseous abnormality is identified. [facility] Singh Blakely MD - 05/09/2021 EXAMINATION: TWO [...] identified. IMPRESSION: No acute airspace disease identified. [facility] Phone: XR CHEST (2 VW)Ordered By: Carlos Calero on 05-09-2021 [facility] Phone: APTTon 05-08-2021 aPTT Coag (Bld) [Time] 23.1 s Normal 20.5-30.5 [facility] Comment on above: Result Comment: IV Heparin Therapy Range: 48.6-77.8 Performed By: #### C BC, PT, PTT, BMP #### [facility] [address] [place], [place] [phone] Research And Development Engineer: Good Melendez MD #### ANICOT #### [facility] [address] [place] [address] Research And Development Engineer: Troy Link MD aPTT Coag (Bld) [Time] 23.1 s [facility] Comment on above: IV Heparin Therapy Range: 48.6-77.8 Basic Metabolic Panelon - Anion gap [Moles/Vol] 15 mmol/L 9 - 17 mmol/L [facility] Calcium [Mass/Vol] 9.4 mg/dL 8.6 - 10. 4 mg/dL [facility] Chloride [Moles/Vol] 103 mmol/L 98 - 10 7 mmol/L [facility] CO2 [Moles/Vol] 19 mmol/L Low 20 - 31 mmol/L [facility] Creatinine [Mass/Vol] 1.59 mg/dL High 0.70 - 1.20 mg/dL [facility] GFR 55 mL/min Low >60 [facility] GFR Non- 45 mL/min Low >60 [facility] GFR/1.73 sq M.predicted MDRD (S/P/Bld) [Vol rate/Area] [facility] Comment on above: Average GFR for 50-5 9 years old: 93 mL/min/1.73sq m Chronic Kidney Disease: <60 mL/min/1.73sq m Kidney failure: <15 mL/min/1.73sq m eGFR calculated using average adult body mass. Additional eGFR calculator available at: http://www.Wiseryou/multiple_crcl_2012.htm Glucose [Mass/Vol] 141 mg/dL High 70 - 99 mg/dL [facility] Interpretation and review of laboratory results Abnormal [facility] Potassium [Moles/Vol] 5.3 mmol/L 3.7 - 5.3 mmol/L [facility] Sodium [Moles/Vol] 137 mmol/L 135 - 144 mmol/L [facility] Urea nitrogen (BldV) [Mass/Vol] 37 mg/dL High 6 - 20 mg/dL [facility] Basic Metabolic Profon 05-08 (cont.) Normal [facility] Comment on above: Result Comment: Aver age GFR for 50-59 years old: 93 mL/min/1.73sq m Chronic Kidney Disease: <60 mL/min/1.73sq m Kidney failure: <15 mL/min/1.73sq m eGFR calculated using average adult body mass. Additional eGFR calculator available at: http://www.Classroom IQ.com/multiple_crcl_2012.htm Performed By: #### C BC, PT, PTT, BMP #### [address] [address] Research And Development Engineer: Good Melendez MD #### ANICOT #### [address] [phone] Research And Development Engineer: Troy Link MD Anion gap [Moles/Vol] 15 mmol/L Normal 9-17 [facility] Comment on above: Performed By: #### C BC, PT, PTT, BMP #### [address] [address] Research And Development Engineer: Good Melendez MD #### ANICOT #### [address] [phone] Research And Development Engineer: Troy Link MD Calcium [Mass/Vol] 9.4 mg/dL Normal 8.6-10.4 [facility] Comment on above: Performed By: #### C BC, PT, PTT, BMP #### [address] [address] Research And Development Engineer: Good Melendez MD #### ANICOT #### [address] [phone] Research And Development Engineer: Troy Link MD Chloride [Moles/Vol] 103 mmol/L Normal 98-107 [facility] Comment on above: Performed By: #### C BC, PT, PTT, BMP #### [address] [address] Research And Development Engineer: Good Melendez MD #### ANICOT #### [facility] [address] [place] [phone] Research And Development Engineer: Troy Link MD CO2 [Moles/Vol] 19 mmol/L Low 20-31 [facility] Comment on above: Performed By: #### C BC, PT, PTT, BMP #### [address] [address] Research And Development Engineer: Good Melendez MD #### ANICOT #### [facility] [address] [place], [place] [phone] Research And Development Engineer: Troy Link MD Creatinine [Mass/Vol] 1.59 mg/dL High 0.70-1.20 [facility] Comment on above: Performed By: #### C BC, PT, PTT, BMP #### [address] [phone] Research And Development Engineer: Good Melendez MD #### ANICOT #### [facility] [address] [place], [place] [phone] Research And Development Engineer: Troy Link MD GFR, Amer 55 mL/min Low >60 [facility] Comment on above: Performed By: #### C BC, PT, PTT, BMP #### [address] [address] Research And Development Engineer: Good Melendez MD #### ANICOT #### [facility] [address] [place], [place] [phone] Research And Development Engineer: Troy Link MD GFR,non Amer 45 mL/min Low >60 [facility] Comment on above: Performed By: #### C BC, PT, PTT, BMP #### [address] [address] Research And Development Engineer: Good Melendez MD #### ANICOT #### [facility] [address] [place], [place] [phone] Research And Development Engineer: Troy Link MD Glucose [Mass/Vol] 141 mg/dL High 70-99 [facility] Comment on above: Performed By: #### C BC, PT, PTT, BMP #### [address] [address] Research And Development Engineer: Good Melendez MD #### ANICOT #### [facility] [address] [place] [address] Research And Development Engineer: Troy Link MD Potassium [Moles/Vol] 5.3 mmol/L Normal 3.7-5.3 [facility] Comment on above: Performed By: #### C BC, PT, PTT, BMP #### [address] [phone] Research And Development Engineer: Good Melendez MD #### ANICOT #### [facility] [address] [place] [phone] Research And Development Engineer: Troy Link MD Sodium [Moles/Vol] 137 mmol/L Normal 135-144 [facility] Comment on above: Performed By: #### C BC, PT, PTT, BMP #### [address] [address] Research And Development Engineer: Good Melendez MD #### ANICOT #### [facility] [address] [place], [place] [phone] Research And Development Engineer: Troy Link MD Urea nitrogen [Mass/Vol] 37 mg/dL High 6-20 [facility] Comment on above: Performed By: #### C BC, PT, PTT, BMP #### [address] [address] Research And Development Engineer: Good Melendez MD #### ANICOT #### [facility] [address] [place], [place] [phone] Research And Development Engineer: Troy Link MD CBCon 05-08-2021 Erythrocyte distribution width (RBC) [Ratio] 14.1 % Normal 11.8-14.4 [facility] Comment on above: Performed By: #### C BC, PT, PTT, BMP #### [address] [address] Research And Development Engineer: Good Melendez MD #### ANICOT #### [facility] [address] [place] [address] Research And Development Engineer: Troy Link MD Hematocrit (Bld) [Volume fraction] 43.6 % Normal 40.7-50.3 [facility] Comment on above: Performed By: #### C BC, PT, PTT, BMP #### [address] [address] Research And Development Engineer: Good Melendez MD #### ANICOT #### [address] [phone] Research And Development Engineer: Troy Link MD Hemoglobin (Bld) [Mass/Vol] 13.5 g/dL Normal 13.0-17.0 [facility] Comment on above: Performed By: #### C BC, PT, PTT, BMP #### [address] [phone] Research And Development Engineer: Good Melendez MD #### ANICOT #### [facility] [address] [place] [phone] Research And Development Engineer: Troy Link MD MCH (RBC) [Entitic mass] 29.4 pg Normal 25.2-33.5 [facility] Comment on above: Performed By: #### C BC, PT, PTT, BMP #### [address] [phone] Research And Development Engineer: Good Melendez MD #### ANICOT #### [facility] [address] [place], [place] [phone] Research And Development Engineer: Troy Link MD MCHC (RBC) [Mass/Vol] 31.0 g/dL Normal 28.4-34.8 [facility] Comment on above: Performed By: #### C BC, PT, PTT, BMP #### [address] [id number] Research And Development Engineer: Good Melendez MD #### ANICOT #### [facility] [address] [place], [place] [id number] Research And Development Engineer: Troy Link MD MCV (RBC) [Entitic vol] 95.0 fL Normal 82.6-102.9 [facility] Comment on above: Performed By: #### C BC, PT, PTT, BMP #### [address] [id number] Research And Development Engineer: Good Melendez MD #### ANICOT #### [address] [address] Research And Development Engineer: Troy Link MD NRBC Automated 0.0 per 100 WBC Normal 0.0 [facility] Comment on above: Performed By: #### C BC, PT, PTT, BMP #### [address] [id number] Research And Development Engineer: Good Melendez MD #### ANICOT #### [facility] [address] [place] [address] Research And Development Engineer: Troy Link MD Platelet mean volume (Bld) [Entitic vol] 8.7 fL Normal 8.1-13.5 [facility] Comment on above: Performed By: #### C BC, PT, PTT, BMP #### [address] [id number] Research And Development Engineer: Good Melendez MD #### ANICOT #### [facility] [address] [place], [place] [id number] Research And Development Engineer: Troy Link MD Platelets (Bld) [#/Vol] 279 10*3/uL Normal 138-453 [facility] Comment on above: Performed By: #### C BC, PT, PTT, BMP #### [facility] [address] [place] [address] Research And Development Engineer: Good Melendez MD #### ANICOT #### [facility] [address] [place] [address] Research And Development Engineer: Troy Link MD RBC (Bld) [#/Vol] 4.59 10*6/uL Normal 4.21-5.77 [facility] Comment on above: Performed By: #### C BC, PT, PTT, BMP #### [address] [address] Research And Development Engineer: Good Melendez MD #### ANICOT #### [facility] [address] [place] [address] Research And Development Engineer: Troy Link MD WBC (Bld) [#/Vol] 8.9 10*3/uL Normal 3.5-11.3 [facility] Comment on above: Performed By: #### C BC, PT, PTT, BMP #### [address] [address] Research And Development Engineer: Good Melendez MD #### ANICOT #### [facility] [address] [place] [address] Research And Development Engineer: Troy Link MD Hematocrit (Bld) [Volume fraction] 43.6 % 40.7 - 50.3 % [facility] Hemoglobin.gastroint estinal spec 1 Ql (Stl) 13.5 g/dL 13.0 - 17.0 g/dL [facility]ILIC[facility] MCH (RBC) [Entitic mass] 29.4 pg 25.2 - 33.5 pg [facility] MCHC (RBC) [Mass/Vol] 31.0 g/dL 28.4 - 34.8 g/dL [facility] MCV (RBC) [Entitic vol] 95.0 fL 82.6 - 102.9 fL [facility] NRBC Automated 0.0 0.0 per 100 WBC [facility] Platelet distribution width (Bld) [Ratio] 14.1 % 11.8 - 14.4 % [facility] Platelet mean volume (Bld) [Entitic vol] 8.7 fL 8.1 - 13.5 fL [facility] Platelets (Bld) [#/Vol] 279 10*3/uL [facility] RBC (Bld) [#/Vol] 4.59 10*6/uL 4.21 - 5.7 7 m/uL [facility] WBC (Bld) [#/Vol] 8.9 10*3/uL [facility] No Panel Informationon 05-08 [facility] PTon 05-08-2021 INR Coag (PPP) [Relative time] 1.1 {INR} Normal [facility] Comment on above: Result Comment: Therapeutic Range: Moderate Anticoagulant Intensity: INR = 2.0-3.0 High Anticoagulant Intensity: INR = 2.5-3.5 Performed By: #### C BC, PT, PTT, BMP #### [facility] [place], [place] [id number] Research And Development Engineer: Good Melendez MD #### JIMENA #### [facility] [address] [place] [address] Research And Development Engineer: Troy Link MD PT Coag (PPP) [Time] 11.2 s Normal 9.1-12.3 [facility] Comment on above: Performed By: #### C BC, PT, PTT, BMP #### [facility] [place], [place] [id number] Research And Development Engineer: Good Melendez MD #### YASSINET #### [facility] [address] [place] [address] Research And Development Engineer: Troy Link MD Protime-INRon 05-08-2021 INR Coag (Bld) [Relative time] 1.1 {INR} [facility] Comment on above: Therapeutic Range: Moderate Anticoagulant Intensity: INR = 2.0-3.0 High Anticoagulant Intensity: INR = 2.5-3.5 PT Coag (PPP) [Time] 11.2 s Geno XR CHEST (2 VW)on 05-08-2021 Radiology Study observation (narrative) [employer] Work Phone: CT LUMBAR SPINE W CONTRASTon 02-28-2021 CT LUMBAR SPINE W CONTRAST [facility] Department of Radiology [address] [place] [id number] ======== Patient Name: SUKHDEEP SIMENTAL : [...] above Electronically signed: Petar Mg. Transcribed by: [email or web address], User Resident: Electronically Signed by: PETAR MG @ 03/01/2021 02:21 PM [place] [facility] LUMBAR MYELOGRAMon 01-04-202 2 LUMBAR MYELOGRAM [facility] Department of Radiology [address] [place] [address] ======== Patient Name: SUKHDEEP SIMENTAL : 1965 Sex: M Age: Race: White Pt. Location: Patient Status: O Ordered Date: 02/13/2021 9:35:00 AM Completed Date: 02/28/2021 02:06 PM Requesting Provider: JASON MILLER Attending Provider: JASON MILLER Report Copy To: Signs & Symptoms: Z98.1 Arthrodesis status I10 History: [phone] Is patient on thinners? Eliquis hold 48hrs. 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 Consent was obtained. Timeout: [place] protocol timeout verification performed. PROCEDURE: Estimated blood [...] report. Electronically signed: Petar Mg. Transcribed by: [email or web address], User Resident: OCHOA HONG Electronically Signed by: PETAR MG @ 02/28/2021 03:13 PM I personally read this/these film(s) with this resident Normal The [facility] LUMBAR SPINE 4 OR 5 [facility] LUMBAR SPINE 4 OR 5 [facility] Department of Radiology [address] [place] [id number] ======== Patient Name: SUKHDEEP SIMENTAL : 1965 Sex: M Age: Race: White Pt. Location: 84 Patient Status: D Ordered Date: 02/01/2021 1:05:00 PM Completed Date: 02/01/2021 01:12 PM Requesting Provider: JASON MILLER Attending Provider: JASON MILLER Report Copy To: Signs & Symptoms: M54.16 Radiculopathy, lumbar region I10 History: [place] Comments: Views (X-RAY, LUMBAR SPINE): AP, Lateral, [...] Osteopenia. Electronically signed: Ahsan Farmer. Transcribed by: [email or web address], User Resident: Electronically Signed by: AHSAN FARMER @ 02/02/2021 10:14 AM Normal [facility] Comment on above: Order Comment: Views (X-RAY, LUMBAR SPINE): AP, Lateral, L5-S1 Spot, Flexion, Extension C REACTIVE PROTEINon 021 CRP [Mass/Vol] 9.6 mg/L High 0.0-7.0 [facility] Comment on above: Performed By: #### 6 1405 #### [facility] [address] CBC W/DIFFon 12-15-2020 ABS IMM GRANS 0.1 10*3/uL Normal 0.0-0.2 The [facility] Comment on above: Performed By: #### 5 6505, 56184 #### [facility] [address] [place] [address], [facility] ABS NEUTROPHILS 6.1 10*3/uL Normal 1.6-7.6 The [facility] Comment on above: Performed By: #### 5 6505, 55068 #### [facility] [address] [place] [address], [facility] Basophils (Bld) [#/Vol] 0.1 10*3/uL Normal 0.0-0.2 The [facility] Comment on above: Performed By: #### 5 6505, 21298 #### [facility] [address] [place] [address], [facility] Basophils/100 WBC (Bld) 0.8 % Normal 0.0-1.0 The [facility] Comment on above: Performed By: #### 5 6505, 51912 #### [facility] [address] [facility] [place] [address], [facility] Eosinophils (Bld) [#/Vol] 0.4 10*3/uL Normal 0.0-0.5 The [facility] Comment on above: Performed By: #### 5 6505, 97179 #### [facility] [address] [facility] [place] [address], [facility] Eosinophils/100 WBC (Bld) 4.1 % Normal 0.0-6.0 The [facility] Comment on above: Performed By: #### 5 6505, 85306 #### [facility] [address] [facility] [place] [address], [facility] Erythrocyte distribution width (RBC) [Ratio] 12.6 % Normal 11.5-15.0 The [facility] Comment on above: Performed By: #### 5 6505, 55352 #### [facility] [address] [place] [address], [facility] Hematocrit (Bld) [Volume fraction] 40.2 % Normal 39.0-50.0 The [facility] Comment on above: Performed By: #### 5 6505, 43026 #### [facility] [address] [place] [address], [facility] Hemoglobin (Bld) [Mass/Vol] 12.6 g/dL Low 13.0-17.0 The [facility] Comment on above: Performed By: #### 5 6505, 25577 #### [facility] [address] [facility] [place] [address], [facility] IMMATURE GRANS 0.7 % Normal 0.0-1.0 The [facility] Comment on above: Performed By: #### 5 6505, 63144 #### [facility] [address] [facility]. [address] Lymphocytes (Bld) [#/Vol] 2.0 10*3/uL Normal 1.2-4.0 The [facility] Comment on above: Performed By: #### 5 6505, 67773 #### [facility] [address] [facility] [place] [address], [facility] Lymphocytes/100 WBC (Bld) 20.6 % Normal 20.0-45.0 The [facility] Comment on above: Performed By: #### 5 6505, 44199 #### [facility] [address] [facility] [place] [address], [facility] MCH (RBC) [Entitic mass] 30.0 pg Normal 27.0-33.0 The [facility] Comment on above: Performed By: #### 5 6505, 68616 #### [facility] [address] [place] [address], [facility] MCHC (RBC) [Mass/Vol] 31.3 g/dL Low 32.0-35.0 The [facility] Comment on above: Performed By: #### 5 6505, 93775 #### [facility] [address] [place] [address], [facility] MCV (RBC) [Entitic vol] 95.7 fL Normal 82.0-98.0 The [facility] Comment on above: Performed By: #### 5 6505, 55011 #### [facility] [address] [place] [address], [facility] Monocytes (Bld) [#/Vol] 1.2 10*3/uL High 0.1-1.0 The [facility] Comment on above: Performed By: #### 5 6505, 90345 #### [facility] [address] [place] [address], [facility] MONOS 11.9 % Normal 5.0-12.0 The [facility] Comment on above: Performed By: #### 5 6505, 94760 #### [facility] [address] [facility] [place] [address], [facility] Neutrophils/100 WBC (Bld) 61.9 % Normal 40.0-72.0 The [facility] Comment on above: Performed By: #### 5 6505, 70942 #### [facility] [address] [place] [address], [facility] Nucleated RBC/100 WBC (Bld) [Ratio] 0 % Normal 0-0 The [facility] Comment on above: Performed By: #### 5 6505, 41574 #### [facility] [address] [place] [address], [facility] PLAT CNT 335 10*3/uL Normal 150-400 The [facility] Comment on above: Performed By: #### 5 6505, 09998 #### [facility] [address] [place] [id number], [facility] RBC (Bld) [#/Vol] 4.20 10*6/uL Normal 4.20-5.70 [facility] Comment on above: Performed By: #### 5 6506, 08573 #### [facility] [address] [facility]. [address] WBC (Bld) [#/Vol] 9.86 10*3/uL Normal 4.00-10.60 The [facility] Comment on above: Performed By: #### 5 6506, 15419 #### [facility] [address] [facility] [place], [place] [id number] [place] [address] KNEE RIGHT 4 VWSon KNEE RIGHT 4 S [facility] Department of Radiology [address] [place] [address] ======== Patient Name: SUKHDEEP SIMENTAL [...] report. Electronically signed: Layo Jimenes. Transcribed by: [email or web address], User Resident: LAYO CORDERO Electronically Signed by: LAYO JIMENES @ 12/16/2020 09:18 AM I personally read this/these film(s) with this resident Normal The [facility] Comment on above: Order Comment: evalu ate SEDIMENTATION RATEon 021 SED RATE 77 mm/hr High 0-10 The [facility] Comment on above: Performed By: #### 5 6506, 46534 #### [facility] [address] COVID-19 Positive/Negativeon 05-05-2020 COVID-19 Positive/Negative Negative Negative [facility] Comment on above: Reference: NegativeT esting for SARS-CoV-2 by RT-PCRThis test was developed and its performance characteristics determined by [employer] ([employer]) and validated at the [facility]. This test has not been FDA [...] among non-blacks MDRD (S/P/Bld) [Vol rate/Area] mL/min/{1.73_m2} [facility] Otheron 05-05-2020 GFR/1.73 sq M.predicted MDRD (S/P/Bld) [Vol rate/Area] mL/min/{1.73_m2} [facility] Comment on above: GFR estimated refere nce range: According to KDOQI guidelines, <60 ml/min/1.73m2 is sufficient to diagnose a patient with chronic kidney disease. Pharmacy Creatinine Clearance (Chem N/A [facility] Coronavirus 2019 PCR Interp N/A [facility] Serum or plasma calcium yeni urement (mass/volume)on 05-05-2020 Calcium [Mass/Vol] 8.6 mg/dL 8.2-10.2 [facility] Serum or plasma chloride xi surement (moles/volume)on 05-05-2020 Chloride [Moles/Vol] 104 mmol/L 95-114 [facility] Serum or plasma creatinine m easurement with calculation of estimated glomerular filtron 05-05-2020 Creatinine [Mass/Vol] 1.14 mg/dL 0.64-1.27 [facility] Serum or plasma glucose yeni urement (mass/volume)on 05-05-2020 Glucose [Mass/Vol] 178 mg/dL 70-100 [facility] Comment on above: ADA recommended refe rence rangeRandom Glucose Reference Range is dependent on time and content of last meal. Glucose of more than 200 mg/dL in a nonstressed, ambulatory subject supports the diagnosis of Diabetes Mellitus. Serum or plasma potassium me asurement (moles/volume)on 05-05-2020 Potassium [Moles/Vol] 4.0 mmol/L 3.5-5.1 [facility] Serum or plasma sodium measu rement (moles/volume)on 05-05-2020 Sodium [Moles/Vol] 141 mmol/L 136-146 [facility] Serum or plasma total carbon dioxide measurement (moles/volume)on 05-05-2020 CO2 [Moles/Vol] 27.4 mmol/L 22.0-30.0 [facility] Serum or plasma urea nitroge n measurement (mass/volume)on 05-05-2020 Urea nitrogen [Mass/Vol] 18 mg/dL 9-23 [facility] .eGFRon 06-10-2019 eGFR AA >60 Normal >=60 [facility] Comment on above: Result Comment: Resu lt = 0-14.9 mL/min/1.73 m2 Kidney failure or Dialysis Result = 15-29 mL/min/1.73 m2 Severe decrease in GFR Result = 30-59 mL/min/1.73 m2 Moderate decrease in GFR Result >= 60 mL/min/1.73 m2 Normal or increased GFR Performed By: #### E GFR #### [address] [address] eGFR Non-AA >60 Normal >=60 [facility] Comment on above: Result Comment: Resu [...] dosing. Performed By: #### E GFR #### [address] [address] Basic Metabolic Profileon Anion gap [Moles/Vol] 15 mmol/L Normal 7-17 [facility] Comment on above: Performed By: #### C [id number] #### [address] [address] Calcium [Mass/Vol] 9.8 mg/dL Normal 8.5-10.3 [facility] Comment on above: Performed By: #### C [id number] #### [address] [address] Chloride [Moles/Vol] 103 mmol/L Normal 98-110 [facility] Comment on above: Performed By: #### C [id number] #### [address] [address] CO2 [Moles/Vol] 27 mmol/L Normal 22-32 [facility] Comment on above: Performed By: #### C [id number] #### [address] [address] Creatinine [Mass/Vol] 0.98 mg/dL Normal 0.61-1.24 [facility] Comment on above: Performed By: #### C [id number] #### [address] [address] Glucose [Mass/Vol] 198 mg/dL High 70-99 [facility] Comment on above: Performed By: #### C [id number] #### [address] [address] Potassium [Moles/Vol] 4.0 mmol/L Normal 3.4-4.8 [facility] Comment on above: Performed By: #### C [id number] #### [address] [address] Sodium [Moles/Vol] 141 mmol/L Normal 133-142 [facility] Comment on above: Performed By: #### C [id number] #### [address] [address] Urea nitrogen [Mass/Vol] 18 mg/dL Normal 8-26 [facility] Comment on above: Performed By: #### C [id number] #### [address] [address] Urea nitrogen/Creatinine [Mass ratio] 18.4 mg/mg Normal 10.0-20.0 [facility] Comment on above: Performed By: #### C [id number] #### [address] [address] CBCon 06-10-2019 Erythrocyte distribution width (RBC) [Ratio] 13.0 % Normal 11.6-14.8 [facility] Comment on above: Performed By: #### C BCI #### [address] [address] Hematocrit (Bld) [Volume fraction] 46.2 % Normal 41.0-53.0 [facility] Comment on above: Performed By: #### C BCI #### [address] [address] Hemoglobin (Bld) [Mass/Vol] 16.2 g/dL Normal 13.5-17.5 [facility] Comment on above: Performed By: #### C BCI #### [address] [address] MCH (RBC) [Entitic mass] 32.1 pg Normal 27.0-35.0 [facility] Comment on above: Performed By: #### C BCI #### [address] [address] MCHC (RBC) [Mass/Vol] 35.0 % Normal 31.0-37.0 [facility] Comment on above: Performed By: #### C BCI #### [address] [address] MCV (RBC) [Entitic vol] 91.6 fL Normal 80.0-100.0 [facility] Comment on above: Performed By: #### C BCI #### [address] [address] Platelet mean volume (Bld) [Entitic vol] 7.5 fL Normal 6.7-10.6 [facility] Comment on above: Performed By: #### C BCI #### [address] [address] Platelets (Bld) [#/Vol] 263 x10*3/mcL Normal 150-350 [facility] Comment on above: Performed By: #### C BCI #### [address] [address] RBC (Bld) [#/Vol] 5.04 x10*6/mcL Normal 4.30-5.[address] [facility] Comment on above: Performed By: #### C BCI #### [address] [address] WBC (Bld) [#/Vol] 9.7 x10*3/mcL Normal 4.5-11.0 [facility] Comment on above: Performed By: #### C BCI #### [address] [address] Hgb A1con 06-10-2019 HbA1c (Bld) [Mass fraction] 134 mg/dL High 68-114 [facility] Comment on above: Result Comment: Math ematical Calc approx. The mean gluc equivalency of A1c Performed By: #### H BA1C #### [address] [address] HbA1c (Bld) [Mass fraction] 6.3 % A1c High 4.0-5.6 [facility] Comment on above: Result Comment: Refe rence Range: 4.0 - 5.6 % Normal 5.7 - 6.4 % Pre-Diabetes > 6.5 % Diabetes Performed By: #### H BA1C #### [address] [address] MRSA, PCRon 06-10-2019 INR Coag (Bld) [Relative time] Negative Normal [facility] Comment on above: Result Comment: The [employer] Xpert MRSA Assay is a qualitative in [...] clinician. Performed By: #### M RSAPC #### [address] [address] PTon 06-10-2019 INR Coag (PPP) [Relative time] 1.0 {INR} Normal <=3.5 [facility] Comment on above: Result Comment: INR has no normal range. INR Therapeutic range is: 2.0-3.0 (AF, CVA, TIAs, DVT prophylaxis, acute DVT) 2.5-3.5 [facility], recurrent [facility]/emboli) Performed By: #### P TINR #### [address] [address] PT Coag (PPP) [Time] 11.9 s Normal 8.9-11.9 [facility] Comment on above: Performed By: #### P TINR #### [address] [address] PTTon 06-10-2019 aPTT Coag (Bld) [Time] 23.0 s Normal 19.2-27.8 [facility] Comment on above: Performed By: #### P TT #### [address] [address] XR Chest 2 Viewson 0 XR Chest [...] Electronically Signed in Other Vendor System) Normal [facility] XR LUMBAR SPINE (2-3 VIEWS)o n [...] evidence of instability. Multilevel disc degeneration. [facility] [place] EXAMINATION: 2 XRAY VIEWS OF THE LUMBAR [...] lumbar spine. Spinous processes appear intact. [facility] [place] Josafat, Mhpn Incoming Radiant Results From [employer] - 04/16/2019 11:16 AM EST EXAMINATION: 2 [...] evidence of instability. Multilevel disc degeneration. [facility] [place] CT LUMBAR SPINE WO CONTRASTo n [...] Normal [facility] No acute findings. [facility] Phone: EXAMINATION: ONE XRA Y VIEW OF THE PELVIS 04/11/2019 1:24 pm COMPARISON: None. HISTORY: ORDERING SYSTEM PROVIDED HISTORY: fall right buttock pain TECHNOLOGIST PROVIDED HISTORY: fall right buttock pain Reason for Exam: fall buttocks pain Acuity: Acute Type of Exam: Initial FINDINGS: No acute fracture. No widening of the sacroiliac joints. Degenerative changes within the lower lumbar spine. Mild bilateral hip osteoarthritis. [facility] Phone: Josafat, Mhpn Incoming Radiant Results From [employer] - 04/11/2019 2:02 PM EST EXAMINATION: ONE [...] bilateral hip osteoarthritis. IMPRESSION: No acute findings. [employer] Work Phone: Vital Signs Date Time Vital Sign Value Performing Clinician Facility 02-13-2024 11:22-0500 Body mass index (BMI) [Ratio] 38.99 kg/m2 Ahsan Flynn PA Work Phone: [facility] 02-13-2024 11:22-0500 Body weight 119.75 kg Ahsan Flynn PA Work Phone: [facility] 02-13-2024 11:22-0500 Diastolic blood pressure 100 mm[Hg] Ahsan Flynn PA Work Phone: [facility] 02-13-2024 11:22-0500 Heart rate 92 /min Ahsan Flynn PA Work Phone: [facility] 02-13-2024 11:22-0500 Respiratory rate 18 /min Ahsan lFynn PA Work Phone: [facility] 02-13-2024 11:22-0500 Systolic blood pressure 150 mm[Hg] Ahsan Flynn PA Work Phone: [facility] 12-05-2023 10:05-0400 Body height 175.3 cm Ahsan Flynn PA Work Phone: [facility] 12-05-2023 10:05-0400 Body mass index (BMI) [Ratio] 39.28 kg/m2 Ahsan Flynn PA Work Phone: [facility] 12-05-2023 10:05-0400 Body weight 120.66 kg Ahsan Flynn PA Work Phone: [facility] 12-05-2023 10:05-0400 Diastolic blood pressure 90 mm[Hg] Ahsan NOVAK Work Phone: [facility] 12-05-2023 10:05-0400 Heart rate 91 /min Ahsan NOVAK Work Phone: [facility] 12-05-2023 10:05-0400 Respiratory rate 16 /min Ahsan NOVAK Work Phone: [facility] 12-05-2023 10:05-0400 SaO2% (BldA) [Mass fraction] 95 % Ahsan NOVAK Work Phone: [facility] 12-05-2023 10:05-0400 Systolic blood pressure 131 mm[Hg] Ahsan NOVAK Work Phone: [facility] 11-07-2023 11:09-0400 Body height 175.26 cm [facility] 11-07-2023 11:09-0400 Body mass index (BMI) [Ratio] 39 kg/m2 [facility] 11-07-2023 11:09-0400 Body temperature 97.4 [degF] [facility] 11-07-2023 11:09-0400 Body weight 119.86 kg [facility] 11-07-2023 11:09-0400 Diastolic blood pressure 85 mm[Hg] [facility] 11-07-2023 11:09-0400 Heart rate 88 /min [facility] 11-07-2023 11:09-0400 Respiratory rate 18 /min [facility] 11-07-2023 11:09-0400 SaO2% (BldA) [Mass fraction] 98 % [facility] 11-07-2023 11:09-0400 Systolic blood pressure 123 mm[Hg] [facility] 08-15-2023 11:27-0400 Diastolic blood pressure 84 mm[Hg] Ahsan NOVAK Work Phone: [facility] 08-15-2023 11:27-0400 Heart rate 110 /min Ahsan NOVAK Work Phone: [facility] 08-15-2023 11:27-0400 Respiratory rate 20 /min Ahsan Nienberg PA [facility] 08-15-2023 11:27-0400 Systolic blood pressure 126 mm[Hg] Ahsan Nienberg PA Work Phone: [facility] [employer] [facility] 02-14-2023 11:12-0500 Body height 175.3 cm Ahsan Nienberg PA Work Phone: [facility] 02-14-2023 11:12-0500 Body mass index (BMI) [Ratio] 39.43 kg/m2 Ahsan Nienberg PA Work Phone: [facility] [employer] [facility] 02-14-2023 11:12-0500 Body weight 121.11 kg Ahsan Nienberg PA Work Phone: [facility] [employer] [facility] 02-14-2023 11:12-0500 Diastolic blood pressure 94 mm[Hg] Ahsan Nienberg PA Work Phone: [facility] [employer] [facility] 02-14-2023 11:12-0500 Heart rate 89 /min Ahsan Nienberg PA Work [facility]: [facility] 02-14-2023 11:12-0500 Respiratory rate 18 /min Ahsan Nienberg PA Work Phone: [facility] [employer] 02-14-2023 11:12-0500 SaO2% (BldA) [Mass fraction] 98 % Ahsna Nienberg PA Work Phone: [facility] [employer] [facility] 02-14-2023 11:12-0500 Systolic blood pressure 143 mm[Hg] Ahsan Nienberg PA Work Phone: [facility] 02-07-2023 14:37-0500 Body temperature 98.6 [degF] Riddhi Goss TRUCK SPOTTER.SUPERVISOR CURING ROOM Work Phone: [facility] 02-07-2023 14:37-0500 Body weight 122.92 kg Riddhi Goss TRUCK SPOTTER.SUPERVISOR CURING [employer] Work Phone: [facility] 02-07-2023 14:37-0500 Diastolic blood pressure 80 mm[Hg] Riddhi Goss TRUCK SPOTTER.SUPERVISOR CURING ROOM Work Phone: [facility] 02-07-2023 14:37-0500 Heart rate 79 /min Riddhi Goss TRUCK SPOTTER.SUPERVISOR CURING ROOM Work Phone: [facility] 02-07-2023 14:37-0500 SaO2% (BldA) [Mass fraction] 98 % Riddhibrayan Goss TRUCK SPOTTER.SUPERVISOR CURING ROOM Work Phone: [facility] 02-07-2023 14:37-0500 Systolic blood pressure 157 mm[Hg] Riddhi Goss TRUCK SPOTTER.SUPERVISOR CURING ROOM Work Phone: [facility] 02-04-2023 09:16-0500 Blood Pressure Location Cecelia MURILLO [facility] 02-04-2023 09:16-0500 Diastolic blood pressure 88 mm[Hg] Cecelia MURILLO [facility] 02-04-2023 09:16-0500 Heart rate 79 /min Cecelia MURILLO [facility] 02-04-2023 09:16-0500 Respiratory rate 16 /min Cecelia MURILLO [facility] 02-04-2023 09:16-0500 Systolic blood pressure 139 mm[Hg] Cecelia MURILLO [facility] 12-20-2022 14:26-0400 Body height 175.3 cm Singh Morgan PA-C Work Phone: [facility] 12-20-2022 14:26-0400 Body weight 123.11 kg Singh Morgan PA-C Work Phone: [facility] 12-20-2022 14:26-0400 Diastolic blood pressure 84 mm[Hg] Signh Morgan PA-C Work Phone: [facility] 12-20-2022 14:26-0400 Heart rate 76 /min Singh NOVAK-C Work Phone: [facility] 12-20-2022 14:26-0400 SaO2% (BldA) [Mass fraction] 97 % Singh NOVAK-C Work Phone: [facility] 12-20-2022 14:26-0400 Systolic blood pressure 165 mm[Hg] Singh NOVAK-C Work Phone: [facility] 12-06-2022 15:00-0400 Body height 175.26 cm Oumou Reji Other [employer] Other 12-06-2022 15:00-0400 Body mass index (BMI) [Ratio] 39.9 kg/m2 Oumou Reji Other [employer] Other 12-06-2022 15:00-0400 Body temperature 98.1 [degF] Oumou Reji Other [employer] Other 12-06-2022 15:00-0400 Body weight 122.56 kg Oumou Reji Other [employer] Other 12-06-2022 15:00-0400 Diastolic blood pressure 81 mm[Hg] Oumou Reji Other [employer] Other 12-06-2022 15:00-0400 Respiratory rate 20 /min Oumou Reji Other [employer] Other 12-06-2022 15:00-0400 SaO2% (BldA) [Mass fraction] 97 % Oumou Reji Other [employer] Other 12-06-2022 15:00-0400 Systolic blood pressure 127 mm[Hg] Oumou Weinstein Other [facility] [employer] Other 11-05-2022 14:17-0400 Body height 175.3 cm Thomas Mathew MD Work Phone: [facility] 11-05-2022 14:17-0400 Body weight 123.97 kg Thomas Mathew MD Work Phone: [facility] 11-05-2022 14:17-0400 Diastolic blood pressure 84 mm[Hg] Thomas Mathew MD Work Phone: [facility] 11-05-2022 14:17-0400 Heart rate 66 /min Thomas Mathew MD Work Phone: [facility] 11-05-2022 14:17-0400 SaO2% (BldA) [Mass fraction] 100 % Thomas Mathew MD Work Phone: [facility] 11-05-2022 14:17-0400 Systolic blood pressure 156 mm[Hg] Thomas Mathew MD Work Phone: [facility] 10-17-2022 15:41-0400 Blood Pressure Location Maite SQUIRES [facility] [place] 10-17-2022 15:41-0400 Diastolic blood pressure 84 mm[Hg] Maite SQUIRES [facility] [place] 10-17-2022 15:41-0400 Heart rate 70 /min Maite SQUIRES [facility] [place] 10-17-2022 15:41-0400 Respiratory rate 16 /min Maite SQUIRES [facility] [place] 10-17-2022 15:41-0400 Systolic blood pressure 118 mm[Hg] Maite SQUIRES [facility] [place] 06-21-2022 10:20-0400 Body height 175.26 cm Oumou Reji Other [employer] Other 06-21-2022 10:20-0400 Body mass index (BMI) [Ratio] 40.02 kg/m2 Oumou Reji Other [employer] Other 06-21-2022 10:20-0400 Body temperature 97.6 [degF] Oumou Reji Other [employer] Other 06-21-2022 10:20-0400 Body weight 122.93 kg Oumou Reji Other [employer] Other 06-21-2022 10:20-0400 Diastolic blood pressure 80 mm[Hg] Oumou Reji Other [employer] Other 06-21-2022 10:20-0400 Respiratory rate 20 /min Oumou Reji Other [employer] Other 06-21-2022 10:20-0400 SaO2% (BldA) [Mass fraction] 97 % Oumou Reji Other [employer] Other 06-21-2022 10:20-0400 Systolic blood pressure 114 mm[Hg] Oumou Reji Other [employer] Other 03-19-2022 09:48-0500 Blood Pressure Location Cecelia MURILLO [facility] 03-19-2022 09:48-0500 Diastolic blood pressure 88 mm[Hg] Cecelia MURILLO [facility] 03-19-2022 09:48-0500 Heart rate 78 /min Cecelia MURILLO [facility] 03-19-2022 09:48-0500 Respiratory rate 16 /min Cecelia MURILLO [facility] 03-19-2022 09:48-0500 Systolic blood pressure 139 mm[Hg] Cecelia MURILLO [facility] 01-11-2022 11:15-0500 Body temperature 98.1 [degF] PHYSICIAN NO [facility] 01-11-2022 11:15-0500 Diastolic blood pressure 88 mm[Hg] PHYSICIAN NO [facility] 01-11-2022 11:15-0500 Heart rate 79 /min PHYSICIAN NO [facility] 01-11-2022 11:15-0500 Respiratory rate 18 /min PHYSICIAN NO [facility] 01-11-2022 11:15-0500 SaO2% (BldA) [Mass fraction] 96 % PHYSICIAN NO [facility] 01-11-2022 11:15-0500 Systolic blood pressure 137 mm[Hg] PHYSICIAN NO [facility] 12-15-2021 12:20-0400 Body height 175.26 cm Estephanie Lowry Other [employer] [facility] [employer] Other 12-15-2021 12:20-0400 Body mass index (BMI) [Ratio] 41.49 kg/m2 Estephanie Lowry Other [employer] Other 12-15-2021 12:20-0400 Body temperature 98.6 [degF] Estephanie Lowry Other [employer] Other 12-15-2021 12:20-0400 Body weight 127.46 kg Estephanie Lowry Other [employer] Other 12-15-2021 12:20-0400 Diastolic blood pressure 96 mm[Hg] Estephanie Lowry Other [employer] Other 12-15-2021 12:20-0400 Respiratory rate 18 /min Estephanie Lowry Other [employer] Other 12-15-2021 12:20-0400 SaO2% (BldA) [Mass fraction] 97 % Estephanie Lowry Other [employer] Other 12-15-2021 12:20-0400 Systolic blood pressure 132 mm[Hg] Estephanie Lowry Other [employer] Other 10-25-2021 14:00-0400 Body height 175.26 cm Oumou Reji Other [employer] Other 10-25-2021 14:00-0400 Body mass index (BMI) [Ratio] 42.02 kg/m2 Oumou Reji Other [employer] Other 10-25-2021 14:00-0400 Body temperature 96.8 [degF] Oumou Reji Other [employer] Other 10-25-2021 14:00-0400 Body weight 129.09 kg Oumou Reji Other [employer] Other 10-25-2021 14:00-0400 Diastolic blood pressure 69 mm[Hg] Oumou Reji Other [employer] Other 10-25-2021 14:00-0400 Respiratory rate 20 /min Oumou Reji Other [employer] Other 10-25-2021 14:00-0400 SaO2% (BldA) [Mass fraction] 98 % Oumou Reji Other [employer] Other 10-25-2021 14:00-0400 Systolic blood pressure 109 mm[Hg] Oumou Reji Other [employer] Other 05-26-2021 10:45-0400 Body temperature 98.8 [degF] Octavio Mcclellan [employer] Work Phone: [email or web address] 05-26-2021 10:45-0400 Respiratory rate 18 /min Octavio Mcclellan [employer] Work Phone: [email or web address] 05-26-2021 10:45-0400 SaO2% (BldA) [Mass fraction] 98 % Octavio Mcclellan [employer] Work Phone: [email or web address] 05-26-2021 07:30-0400 Heart rate 105 /min Octavio Mcclellan [employer] Work Phone: [email or web address] 05-25-2021 23:20-0400 Diastolic blood pressure 85 mm[Hg] Octavio Mcclellan [employer] Work Phone: [email or web address] 05-25-2021 23:20-0400 Systolic blood pressure 130 mm[Hg] Octavio Mcclellan [employer] Work Phone: [email or web address] 05-24-2021 10:15-0400 Body height 175.3 cm Octavio Mcclellan [employer] Work Phone: [email or web address] 05-24-2021 10:15-0400 Body mass index (BMI) [Ratio] 50.65 kg/m2 Octavio Mcclellan [employer] Work Phone: [email or web address] 05-24-2021 10:15-0400 Body weight 155.58 kg Octavio Mcclellan [employer] Work Phone: [email or web address] 05-08-2021 11:04-0400 Body height 175.3 cm [facility] [employer] 05-08-2021 11:04-0400 Body mass index (BMI) [Ratio] 51.98 kg/m2 [address] 05-08-2021 11:04-0400 Body temperature 97.3 [degF] [address] 05-08-2021 11:04-0400 Body weight 159.[address] 05-08-2021 11:04-0400 Diastolic blood pressure 83 mm[Hg] [address] 05-08-2021 11:04-0400 Heart rate 126 /min [address] 05-08-2021 11:04-0400 Respiratory rate 20 /min [address] [employer] 05-08-2021 11:04-0400 SaO2% (BldA) [Mass fraction] 95 % [address] 05-08-2021 11:04-0400 Systolic blood pressure 121 mm[Hg] [address] 01-08-2020 14:04-0500 BMI (Body Mass Index) 47.99 kg/m2 [facility] 01-08-2020 14:04-0500 Body Temperature 96.69 [degF] [facility] 01-08-2020 14:04-0500 Body weight 147.42 kg [facility] 01-08-2020 14:04-0500 Height 175.3 cm [facility] 04-11-2019 12:42-0500 BMI (Body Mass Index) 44.3 kg/m2 [employer] Work Phone: 04-11-2019 12:42-0500 Body Temperature 97.39 [degF] [employer] Work Phone: 04-11-2019 12:42-0500 Body weight 136.08 kg [employer] Work Phone: 04-11-2019 12:42-0500 BP Diastolic 98 mm[Hg] [employer] Phone: 04-11-2019 12:42-0500 BP Systolic 196 mm[Hg] Suzanne [employer] Phone: 04-11-2019 12:42-0500 Height 175.3 cm Suzanne [employer] Phone: 04-11-2019 12:42-0500 Pulse (Heart Rate) 72 /min Suzanne [employer] Phone: 04-11-2019 12:42-0500 Pulse Oximetry 96 % Suzanne [employer] Phone: 04-11-2019 12:42-0500 Respiratory Rate 16 /min Suzanne [employer] Phone: Encounters Encounter Date Encounter Type Care Provider Facility Start: 11-19-2024 End: 11-19-2024 ambulatory Yarely [place] Facility:[facility] [place] Start: 11-19-2024 End: 11-19-2024 Patient encounter procedure Yarely Canada [facility] [employer] Start: 11-13-2024 End: 11-13-2024 ambulatory Cecelia Fernandez Facility:[id number] Start: 08-07-2024 End: 08-07-2024 ambulatory Cecelia MURILLO Facility:[facility] Start: 08-07-2024 End: 08-07-2024 Patient encounter procedure Cecelia MURILLO [facility] [employer] Start: 06-22-2024 End: 06-22-2024 ambulatory Cecelia MURILLO Facility:[facility] Start: 06-17-2024 End: 06-17-2024 ambulatory [facility] Start: 05-18-2024 ambulatory [facility] Start: 05-18-2024 End: 05-18-2024 ambulatory [facility] Start: 04-10-2024 End: 04-21-2024 Telephone encounter Cherelle Oleary RN [facility] Start: 03-03-2024 End: 03-04-2024 Telephone encounter Cherelle Oleary RN [facility] Start: 02-13-2024 End: 02-13-2024 ambulatory AHSAN FLYNN [facility] Start: 02-13-2024 End: 02-13-2024 Office outpatient visit 15 minutes Ahsan Flynn PA Work Phone: [facility] Comment on above: Spinal stenosis, lum bar region, with neurogenic claudication (Primary Dx) Start: 02-03-2024 End: 02-03-2024 ambulatory Cecelia MURILLO Facility:[facility] Start: 02-03-2024 End: 02-03-2024 Patient encounter procedure Cecelia MURILLO [facility] Start: 12-05-2023 End: 12-05-2023 ambulatory AHSNA FLYNN [facility] Start: 12-05-2023 End: 12-05-2023 Office outpatient visit 15 minutes Ahsan Flynn PA Work Phone: [facility] Comment on above: Spinal stenosis, lum bar region, with neurogenic claudication (Primary Dx) Start: 11-07-2023 End: 11-07-2023 ambulatory [facility] Work Phone: Start: 11-07-2023 End: 11-07-2023 Patient encounter procedure [facility] Work Phone: Start: 10-29-2023 Non-patient / Non-visit [facility] Work Phone: Start: 10-07-2023 End: 06-25-2024 Telephone encounter Thomas Mathew MD Work Phone: Neurology Comment on above: Appointment Start: 10-04-2023 Telephone encounter Thomas crabtree MD Work Phone: Neurology Comment on above: Results Start: 08-15-2023 End: 08-15-2023 Office outpatient visit 15 minutes Ahsan NOVAK Work Phone: [facility] Comment on above: Spinal stenosis, lum bar region, with neurogenic claudication (Primary Dx) Start: 08-15-2023 End: 08-15-2023 ambulatory AHSAN FLYNN [facility] Start: 07-30-2023 Telephone encounter Thomas crabtree MD Work Phone: Neurology Comment on above: Appointment; Orders Start: 07-23-2023 Telephone encounter Thomas crabtree MD Work Phone: Neurology Start: 05-08-2023 End: 05-08-2023 ambulatory Thomas Mathew MD Work Phone: Neurosurgery Comment on above: Radiculopathy, lumba r region (Primary Dx) Start: 05-08-2023 End: 05-08-2023 Telemedicine consultation with patient Thomas Mathew MD Work Phone: [facility] Start: 05-08-2023 Telephone encounter Cherelle Oleary RN [facility] Start: 05-07-2023 Telephone encounter Cherelle Oleary RN [facility] Start: 04-16-2023 Telephone encounter Thomas crabtree MD Work Phone: Neurology Comment on above: Imaging Disc Start: 04-10-2023 Telephone encounter Thomas crabtree MD Work Phone: Neurology Comment on above: PT Certification Start: 04-09-2023 Telephone encounter Thomas crabtree MD Work Phone: Neurology Start: 02-14-2023 End: 02-14-2023 Office outpatient visit 15 minutes Ahsan NOVAK Work Phone: [facility] Comment on above: Spinal stenosis, lum bar region, with neurogenic claudication (Primary Dx) Start: 02-07-2023 End: 02-07-2023 Patient encounter procedure Riddhi Goss TRUCK SPOTTER.SUPERVISOR CURING ROOM Work Phone: Neurosurgery Comment on above: 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) Start: 12-21-2022 Telephone encounter Thomas crabtree MD [...] Evaluation and management of inpatient THOMAS MATHEW Facility:[facility] Start: 12-06-2022 End: 12-06-2022 ambulatory Oumou Reji Other [employer] Other Start: 12-06-2022 Office outpatient vi sit 25 minutes Oumou Reji [facility] Start: 11-21-2022 End: 11-21-2022 ambulatory MAITE GALLOWAY Facility:[facility] Start: 11-21-2022 End: 11-21-2022 ambulatory BLAYNE ISABEL Facility:[facility] Start: 11-21-2022 End: 11-21-2022 ambulatory BLAYNE ISABEL Facility:[facility] Start: 11-21-2022 Encounter for other preprocedural examination BLAYNE ISABEL [facility] Start: 11-05-2022 End: 11-05-2022 Patient encounter procedure Thomas Mathew MD Work Phone: Neurosurgery Comment on above: 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 Facility: Start: 06-21-2022 End: 06-21-2022 ambulatory Oumou Reji Other [employer] Other Start: 06-21-2022 Office outpatient vi sit 25 minutes Oumou Reji [facility] Start: 06-11-2022 End: 06-12-2022 ambulatory OUMOU REJI Facility: Start: 04-03-2022 End: 04-03-2022 ambulatory Oumou Reji Other [employer] Other Start: 04-03-2022 Telephone encounter Oumou Reji [facility] Start: 03-20-2022 Encounter for preprocedural laboratory examination DR DOCTOR MILES [facility] Start: 03-19-2022 End: 03-19-2022 Patient encounter procedure Cecelia MURILLO [facility] Start: 03-15-2022 End: 03-16-[address] DOCTOR MILES Facility:[facility] Start: 03-15-2022 End: 03-16-2022 Encounter for preprocedural laboratory examination DR DOCTOR MILES Facility:[facility] Start: 03-12-2022 End: 03-13-[address] CECELIA MURILLO . Facility:[facility] Start: 03-08-2022 End: 03-09-[address] DOCTOR MILES Facility:[facility] Start: 01-27-2022 Encounter for genera l adult medical examination without abnormal findings DR BLAYNE ISABEL . [facility] Start: 01-24-2022 End: 01-25-[address] BLAYNE ISABEL . Facility:[facility] Start: 01-24-2022 End: 01-25-2022 Encounter for general adult medical examination without abnormal findings DR BLAYNE ISABEL . Facility:[facility] Start: 01-22-2022 End: 01-22-2022 ambulatory Oumou Reji Other [facility] [employer] Other Start: 01-22-2022 Telephone encounter Oumou Reji [facility] Start: 01-11-2022 End: 01-11-2022 ambulatory PHYSICIAN NO FAMILY Facility:[facility] Start: 01-11-2022 End: 01-11-2022 ambulatory PHYSICIAN NO [facility] Work Phone: Start: 01-11-2022 End: 01-11-2022 Discharged Recurring PHYSICIAN NO FAMILY [facility] - O/P Start: 01-10-2022 End: 01-10-2022 ambulatory Oumou Reji Other [employer] Other Start: 01-10-2022 Telephone encounter Oumou Reji [facility] Start: 01-02-2022 End: 01-02-2022 ambulatory Oumou Reji Other [employer] Other Start: 01-02-2022 Telephone encounter Oumou Reji [facility] Start: 01-01-2022 End: 01-01-2022 ambulatory Oumou Reji Other [employer] Other Start: 01-01-2022 Telephone encounter Oumou Reji [facility] Start: 12-21-2021 End: 12-22-[address] BLAYNE ISABEL . 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 Facility:[facility] Start: 10-31-2021 End: 11-01-[address] BLAYNE ISABEL . Facility:[facility] Start: 10-25-2021 End: 10-25-2021 ambulatory Oumou Reji Other [facility] [employer] Other Start: 10-25-2021 Office outpatient ne w 45 minutes Oumou Weinstein [facility] Start: 10-18-2021 End: 10-19-[address] BLAYNE ISABEL . Facility:[facility] Start: 10-17-2021 Encounter for other specified special examinations DR DOCTOR MILES [facility] Start: 10-17-2021 Encounter for preprocedural laboratory examination DR DOCTOR MILES [facility] Start: 10-16-2021 End: 10-17-[address] BLAYNE ISABEL . Facility:[facility] Start: 10-16-2021 End: 10-17-2021 Encounter for other specified special examinations DR DOCTOR MILES Facility:[facility] Start: 10-13-2021 End: 10-21-2021 ambulatory PHYSICIAN BRADFORD Facility:[facility] Start: 10-10-2021 End: 10-11-2021 ambulatory [...] Evaluation and management of inpatient LEISA PERRY [facility] Start: 05-24-2021 End: 05-26-2021 ambulatory OCTAVIO MCCLELLAN [facility] Start: 05-24-2021 End: 05-26-2021 Subsequent hospital visit by physician Octavio Mcclellan DO Work Phone: [facility] 2C Ortho/Med Surg Comment on above: S/P laparoscopic sle may gastrectomy (Primary Dx) Start: 05-08-2021 End: 05-08-2021 Subsequent hospital visit by physician Jesus Mccracken 2 [facility] Pre-Admit Testing Comment on above: Canceled (Other) Start: 05-08-2021 End: 05-11-2021 ambulatory OCTAVIO Jj [facility] Start: 05-08-2021 End: 05-13-2021 ambulatory OCTAVIO Jj [facility] Start: 05-08-2021 End: 05-10-2021 Patient encounter status Stv Xr [facility] Start: 05-08-2021 End: 05-10-2021 Subsequent hospital visit by physician Glory Mccracken Xr [facility] Radiology Comment on above: Pre-op chest exam Start: 05-08-2021 End: 05-12-2021 Subsequent hospital visit by physician Jesus Mccracken 2 [facility] Pre-Admit Testing Start: 05-05-2020 End: 05-05-2020 Patient encounter procedure Blayne Isabel -Pre-Surgical Testing Start: 02-04-2020 End: 02-04-2020 Subsequent hospital visit by physician Suzanne Pruett Work Phone: [facility] Echocardiography Comment on above: Arrived Start: 01-08-2020 End: 01-08-2020 Subsequent hospital visit by physician Alexandro Muhammad Work Phone: [facility] Start: 01-08-2020 End: 01-08-2020 Office outpatient new 30 minutes Alexandro Muhammad Work Phone: [facility] Comment on above: Fluid retention in l egs (Primary Dx) Start: 06-10-2019 End: 06-11-2019 Patient encounter procedure SELKOKI [facility] Facility:[facility] Start: 04-16-2019 End: 04-19-2019 Patient encounter procedure ARSENIO Leyva [facility] [facility] Start: 04-16-2019 End: 04-18-2019 Subsequent hospital visit by physician Xr Room 4 [facility] Comment on above: Injury Start: 04-11-2019 End: 04-11-2019 Emergency department patient visit SUZANNE DAVIES [facility] Start: 04-11-2019 End: 04-11-2019 Emergency department patient visit Suzanne Davies Work Phone: [facility] Comment on above: Acute bilateral low back pain with right-sided sciatica (Primary Dx); Traumatic buttock pain Procedures Date Procedure Procedure Detail Performing Clinician Start: 11-13-2024 Cystoscopy Yarely ortega Start: 11-21-2022 Antibody screen BLAYNE ISABEL Comment on above: Order Comment: Speci men Type: BLOOD SPECIMENOrdering Facility: [facility] Address: [address] [place] [address] Performed By: #### T [id number] ####CC MAIN BLOOD BANKCLIA [id number] [address] [place] Start: 02-25-2022 Arthroplasty of knee Scarlet MURILLO Start: 02-25-2022 Lumbar spinal fusion Scarlet MURILLO Start: 01-24-[address] SHERRI MURILLO . Comment on above: Performed By: #### P TT #### [facility] [address] [place] [address] Dr. Hugh Landis Start: 07-13-2021 Cystoscopic removal [...] Cancer Screening Discussion Prostate Cancer Screening Discussion [facility] Start: 01-24-2027 Prostate specific antigen measurement Prostate Cancer Screening Discussion [facility] Start: 08-13-2025 ambulatory Ambulatory Facility:[facility] Start: 02-12-2025 Adult BMI Screening Adult BMI Screening [facility] Start: 02-12-2025 Tobacco Screening Tobacco Screening [facility] Start: 12-04-2024 Adult BMI Screening Adult BMI Screening [facility] Start: 12-04-2024 Tobacco Screening Tobacco Screening [facility] Start: 10-26-2024 Influenza vaccination Influenza Vaccine (Season Ended) [facility] Start: 08-14-2024 Tobacco Screening Tobacco Screening [facility] Start: 02-15-2024 Adult BMI Screening Adult BMI Screening [facility] Start: 02-15-2024 Tobacco Screening Tobacco Screening [facility] Start: 02-13-2024 End: 02-13-2024 Patient encounter procedure 02/13/2024 10:45 AM EST Office Visit [facility] [address] [place] [phone] Ahsan Flynn, PA [address] [place], [place] [id number] [facility] Start: 12-12-2023 Creatinine measurement Serum Creatinine [facility] Start: 12-12-2023 Serum Creatinine Serum Creatinine [facility] Start: 10-27-2023 Covid-19 Vaccine ( season) Covid-19 Vaccine ( season) [facility] Start: 10-27-2023 Influenza vaccination [facility] Start: 10-07-2023 End: 10-07-2023 Follow-up encounter Neurosurgery Comment on above: FOLLOW UP Start: 2023 RSV Vaccine (1 - 1-dose 60+ series) RSV Vaccine (1 - 1-dose 60+ series) [facility] Start: 2023 RSV Vaccine (1 - Risk 60-74 years 1-dose series) RSV Vaccine (1 - Risk 60-74 years 1-dose series) [facility] Start: 08-15-2023 End: 08-15-2023 Patient encounter procedure 08/15/2023 11:15 AM EDT Office Visit [facility] [address] [place] [phone] Ahsan Flynn PA [address] [place], [place] [id number] [facility] Start: 05-22-2023 Hemoglobin A1c measurement HbA1C [facility] Start: 05-22-2023 Hemoglobin A1c/Hemoglobin.total in Blood HbA1C [facility] Start: 02-25-2023 Behavioral Health Screening Behavioral Health Screening [facility] Start: 02-25-2023 Depression Assessment Depression Assessment [facility] Start: 01-20-2023 End: 01-19-2024 Radex spine lumbosacral 2/3 views XR LUMBAR LIMITED 2V AP/LAT Radiology Routine Lumbar adjacent segment disease with spondylolisthesis Expected: 01/20/2023, Expires: 01/19/2024 [facility] Work Phone: Comment on above: Expected: 01/20/2023, Expires: Start: 10-26-2022 Covid-19 Vaccine ( season) Covid-19 Vaccine () [facility] Start: 10-26-2022 Influenza vaccination [facility] Start: 05-25-2022 Creatinine measurement Creatinine monitoring [facility] Start: 05-25-2022 Potassium monitoring Potassium monitoring [facility] Start: 05-08-2022 Creatinine measurement Creatinine monitoring [facility] Start: 05-08-2022 Potassium monitoring Potassium monitoring [facility] Start: 02-25-2022 DEPRESSION ASSESSMENT DEPRESSION ASSESSMENT [facility] Start: 01-03-2022 Hemoglobin A1c measurement A1C test (Diabetic or Prediabetic) [facility] Start: 01-03-2022 Lipid panel Lipid screen [facility] Start: 10-26-2021 Influenza vaccination Flu vaccine (Season Ended) [facility] Start: 06-06-2021 End: 06-06-2021 Patient encounter procedure 06/06/2021 Office Visit Oncology Spencer Guy MD [address] [place] [address] [facility] Start: 06-02-2021 End: 06-02-2021 Patient encounter procedure 06/02/2021 Office Visit Bariatrics Octavio Mcclellan DO [address] [phone] Heydi Hernandez Invasive Bariatric Surg Start: 05-24-2021 End: 05-24-2021 Admission to same day surgery center [facility] Comment on above: XI ROBOTIC LAPOROSCOPIC GASTRECTOMY SLEE VE, LIVER BIOPSY, EGD- GI SCHEDULED XI ROBOTIC LAPOROSCO PIC GASTRECTOMY SLEEVE, LIVER BIOPSY, EGD- GI SCHEDULED, POSSIBLE OPEN Start: 05-24-2021 End: 05-24-2021 Laps gstrc rstrictiv px longitudinal gastrectomy [facility] Start: 05-24-2021 Subsequent hospital visit by physician 05/24/2021 Hospital Encounter IP Unit Octavio Mcclellan DO [address] [phone] [facility] Start: 05-19-2021 End: 05-19-2021 Patient encounter procedure 05/19/2021 Appointment Pre-Admission Testing [facility] PRE ADMIT Start: 05-18-2021 End: 05-18-2021 Patient encounter procedure 05/18/2021 Office Visit Bariatrics Octavio Mcclellan DO [address] [phone] [facility] Start: 10-26-2020 Influenza vaccination Flu vaccine (#1) [facility] Start: 04-04-2020 End: 04-04-2020 Office Visit 04/04/2020 Office Visit Cardiovascular Medicine Suzanne Pruett MD [address] [place] [address] [phone] [facility] Start: 02-02-2020 End: 02-02-2020 Office Visit 02/02/2020 Office Visit Cardiovascular Medicine Suzanne Pruett MD [address] [place] [address] [phone] [facility] Start: 10-27-2019 Influenza vaccination INFLUENZA VACCINE (#1) [facility] Start: 10-26-2018 Influenza vaccination Flu vaccine (#1) [facility] Phone: Start: 09-10-2018 PROSTATE CANCER SCREENING DISCUSSION PROSTATE CANCER SCREENING DISCUSSION [facility] Start: 09-10-2013 Administration of varicella zoster vaccine Zoster (Shingles) Vaccine (1 of 2) [facility] Start: 09-10-2013 Colon cancer screen colonoscopy Colon cancer screen colonoscopy [facility] Phone: Start: 09-10-2013 Colonoscopy COLORECTAL CANCER SCREENING DISCUSSION [facility] Start: 09-10-2013 Prostate specific antigen measurement PROSTATE CANCER SCREENING DISCUSSION [facility] Start: 09-10-2013 Shingles Vaccine (1 of 2) Shingles Vaccine (1 of 2) [facility] Start: 09-10-2013 SHINGRIX VACCINE (1 of 2) SHINGRIX VACCINE (1 of 2) [facility] Start: 09-10-2013 Zoster vaccine hzv live for subcutaneous use ZOSTER (SHINGLES) VACCINE (1 of 2) [facility] Start: 09-10-2008 COLOGUARD (FIT-DNA) COLOGUARD (FIT-DNA) [facility] Start: 09-10-2008 Colonoscopy COLONOSCOPY [facility] Start: 09-10-2008 COLORECTAL CANCER SCREENING COLORECTAL CANCER SCREENING [facility] Start: 09-10-[address] COLONOGRAPHY [facility] Start: 09-10-2008 DIABETES SCREEN DIABETES SCREEN [facility] Start: 09-10-2008 Diabetes Screening Diabetes Screening [facility] Start: 09-10-2008 FECAL OCCULT BLOOD FECAL OCCULT BLOOD [facility] Start: 09-10-2008 Screening for malignant neoplasm of colon [facility] Start: 09-10-2008 SIGMOIDOSCOPY SIGMOIDOSCOPY [facility] Start: 2003 Diabetes screen Diabetes screen [facility] Source [employer] Phone: Start: 2003 Fasting lipid profile LIPID SCREENING [facility] Start: 2003 Lipid screen Lipid screen [facility] Phone: Start: 09-10-1998 Lipid 1996 panel - Serum or Plasma Lipid Screening [facility] Start: 09-10-1998 LIPID SCREEN LIPID SCREEN [facility] Start: 09-10-1982 DTaP,Tdap and Td Vaccines (1 - Tdap) DTaP,Tdap and Td Vaccines (1 - Tdap) [facility] Start: 09-10-1982 DTaP/Tdap/Td vaccine (1 - Tdap) DTaP/Tdap/Td vaccine (1 - Tdap) [facility] Start: 09-10-1982 Hepatitis B vaccine (1 of 3 - Risk 3-dose series) Hepatitis B vaccine (1 of 3 - Risk 3-dose series) [facility] Start: 09-10-1982 Pneumococcal Vaccine: 50+ (1 of 2 - PCV) Pneumococcal Vaccine: 50+ (1 of 2 - PCV) [facility] Start: 09-10-1982 Third diphtheria, tetanus and acellular pertussis (DTaP) vaccination TDAP (ADULT) [facility] Start: 09-10-1982 Urine microalbumin profile [facility] Start: 09-10-1981 Adult BMI Follow Up Plan Adult BMI Follow Up Plan [facility] Start: 09-10-1981 Annual PCP Team Chronic Disease Visit Annual PCP Team Chronic Disease Visit [facility] Start: 09-10-1981 BP Controlled (<130/80) BP Controlled (<130/80) [facility] Start: 09-10-1981 Depression Screening Depression Screening [facility] Start: 09-10-1981 Diabetic retinal exam Diabetic retinal exam [facility] Start: 09-10-1981 Hepatitis B surface antibody level LDL Cholesterol [facility] Start: 09-10-1981 HEPATITIS C SCREENING HEPATITIS C SCREENING [facility] Start: 09-10-1981 Hepatitis C screening Hepatitis C Screening [facility] Start: 09-10-1981 HIV SCREENING HIV SCREENING [facility] Start: 09-10-1981 HIV screening HIV Screening [facility] Start: 09-10-1981 Tetanus vaccination TETANUS [facility] Start: 09-10-1981 Urine screening for protein Diabetic microalbuminuria test [facility] Start: 09-10-1978 HIV screen HIV screen [facility] Work Phone: Start: 09-10-1978 HIV screening HIV screen [facility] Start: 09-10-1976 HIV screening HIV SCREENING DISCUSSION [facility] Start: 1975 Depression Screen Depression Screen [facility] Start: 1975 Depression Screening Depression Screening [facility] Start: 09-10-1974 DTaP/Tdap/Td vaccine (1 - Tdap) DTaP/Tdap/Td vaccine (1 - Tdap) [facility] [employer] Phone: Start: 09-10-1973 3 comp foot exam completed Diabetic Foot Exam [facility] Start: 09-10-1973 Diabetic foot examination Diabetic foot exam [facility] Start: 09-10-1973 Glaucoma screening Dilated Retinal Exam [facility] Start: 09-10-1973 Hepatitis B screening Urine Albumin:Creatinine Ratio [facility] Start: 09-10-1973 Hepatitis C antibody, confirmatory test Dilated Retinal Exam [facility] Start: 09-10-1969 Pneumococcal 0-64 years Vaccine (1 of 2 - PPSV23) Pneumococcal 0-64 years Vaccine (1 of 2 - PPSV23) [facility] Start: 09-10-1969 Pneumococcal vaccination [facility] Start: 09-10-1968 COVID-19 Vaccine (1) COVID-19 Vaccine (1) [facility] Start: 03-13-1964 COVID-19 VACCINE (#1) COVID-19 VACCINE (#1) [facility] Start: 1963 Hepatitis C antibody, confirmatory test HEPATITIS C VIRUS SCREENING [facility] Start: 1963 Hepatitis C screen Hepatitis C screen [facility] Phone: Start: 1963 Hepatitis C screening Hepatitis C screen [facility] Start: 1963 Potassium [Moles/Vol] POTASSIUM [facility] Bacteria identified in Urine by Culture [facility] Chlamydia trachomati s DNA [Presence] in Unspecified specimen by MUKUL with probe detection [facility] [employer] Work Phone: Continuous pulse oximetry Pulse oximetry, continuous Respiratory Care Routine Every 4hr until discontinued starting 05/24/[address] [facility] [address] Phone: Comment on above: Every 4hr until discontinued starting CT LUMBAR SPINE WO CONTRAST CT LUMBAR SPINE WO CONTRAST Imaging STAT 04/11/2019 1:43 PM EST [facility] Phone: Neisseria gonorrhoea e DNA [Presence] in Unspecified specimen by MUKUL with probe detection [facility] Work Phone: Oxygen therapy [[facility] [place]] Initiate Oxygen Therapy Protocol Respiratory Care Routine As Needed until discontinued starting 05/24/2021 [employer] Work Phone: Comment on above: As Needed until discontinued starting Radiography for bone length studies XR BONE LENGTH STUDY Imaging Routine Hx of total knee arthroplasty, right 01/08/2020 1:37 PM [facility] [employer] [facility] Renal function 2000 panel - Serum or Plasma [facility] Spirometry panel Incentive silverio metry Respiratory Care Routine Every 2hr while awake until discontinued starting 05/24/2021 [employer] Work Phone: Comment on above: Every 2hr while awake until discontinued starting 05/24/2021 Surgical Pathology Surgical Path ology Lab Routine Release Upon Ordering for 1 Occurrences starting 05/24/2021 [facility] [employer] Work Phone: Comment on above: Release Upon Ordering for 1 Occurrences starting 05/24/2021 Trichomonas vaginali s DNA [Presence] in Unspecified specimen by MUKUL with probe detection [facility] Work Phone: X-ray of right knee XR KNEE RIGH T 3 VIEWS Imaging Routine Hx of total knee arthroplasty, right 01/08/2020 1:37 PM [facility] [employer] [facility] End: 06-06-2024 XR Lumbar spine AP and Lateral XR LUMBAR LIMITED 2V AP/LAT Radiology Routine Radiculopathy, lumbar region 1 Occurrences starting 05/08/2023 until 06/06/2024 [facility] Work Phone: Comment on above: 1 Occurrences starting 05/08/2023 until 06/06/2024 [facility] Immunizations Immunization Date Immunization Notes Care Provider Fa cility 05-08-2023 influenza virus vacc ine, unspecified formulation Thomas Mathew MD Work Phone: [facility] Payers Date Payer Category Payer Self-pay [id number] 2019 Private Health Insurance [id number] 2019 Worker's Compensation 2019 Government (not [facility] care or Medicaid) [facility] [id number] 2019 Unknown HEALTH MANAGEMEN [employer] SOL[employer]IONS [facility] FUNDED xxxxxxxx 2019-Present [phone] [place] [address] xxxxxxxx [id number]. 2.7.3.138199.315 2019 Unknown [id number] 2019 Unknown [id number] 2019 Unknown HEALTH MANAGEPay-Me [employer] [facility] FUNDED xxxxx 2019-Present [phone] [place] [address] xxxxx [id number]. 2.7.3.763220.315 2019 Unknown [id number]. 1.13.159. 2.7.3.340868.315 2019 Worker's Comp Other Managed Care [facility] [id number]. 2.7.9.563290.306.315 2019 Unknown [id number] 2014 Private Health Insurance [id number] 2014 Private Health Insurance BRENTON PARIKH xxxxxxxxxx 2014-Present [phone] [facility] [address] [place] [address] xxxxxxxxxx 1.2.840.785042.1.13.239. 2.7.3.940601.315 2013 Private Health Insurance 1963 Unknown [id number] 2.16.840.1.169260.3.579. 2.176 1963 Unknown [id number] 2.16.840.1.194901.3.579. 2.176 1963 Unknown [id number] 2.16.840.1.584413.3.579. 2.176 1963 Unknown [id number] 2.16.840.1.262910.3.579. 2.196 1963 Unknown [id number] 2.16.840.1.800077.3.579. 2.175 1963 Unknown [id number] 2.16.840.1.311152.3.579. 2.647 1963 Unknown [id number] 2.16.840.1.842330.3.579. 2.593 1963 Unknown [id number] 2.16.840.1.240838.3.579. 2.593 1963 Unknown [id number] 2.16.840.1.025327.3.579. 2.593 1963 Unknown [id number] 2.16.840.1.264352.3.579. 2.593 1963 Unknown [id number] 2.16.840.1.720260.3.579. 2.593 1963 Unknown [id number] 2.16.840.1.308109.3.579. 259 1963 Unknown [id number] .16.840.1.918190.3.579. 259 1963 Unknown [id number] .16.840.1.269887.3.579. 2 1963 Unknown [id number] .840.1.662521.3.579. 2 1963 Unknown [id number] .840.1.796262.3.579. 2 1963 Unknown [id number] .840.1.989418.3.579. 2 1963 Unknown [id number] .840.1.781802.3.579. 2 1963 Unknown [id number] .840.1.269266.3.579. 2 1963 Unknown [id number] .840.1.455980.3.579. 2 1963 Unknown [id number] .840.1.594761.3.579. 2 1963 Unknown [id number] .840.1.072931.3.579. 2 1963 Unknown [id number] .840.1.233340.3.579. 2 1963 Unknown [id number] .840.1.611886.3.579. 2 1963 Unknown [id number] .840.1.953705.3.579. 2 1963 Unknown [id number] .840.1.994955.3.579. 259 1963 Unknown [id number] .840.1.741979.3.579. 2 1963 Unknown [id number] 2.16.840.1.413015.3.579. 2.593 1963 Unknown [id number] 2.16.840.1.774190.3.579. 2593 1963 Unknown [id number] 2.16.840.1.133085.3.579. 2.1285 1963 Unknown [id number] 2.16.840.1.939757.3.579. 2.1285 1963 Unknown [id number] 2.16.840.1.639581.3.579. 2.1285 1963 Unknown [id number] 2.16.840.1.739466.3.579. 272 1963 Unknown [id number] 2.16.840.1.117936.3.579. 2.72 1963 Unknown [id number] 2.16.840.1.480986.3.579. 2.72 1963 Unknown [id number] 2.16.840.1.928085.3.579. 272 1963 Unknown [id number] 2.16.840.1.577028.3.579. 272 1963 Unknown [id number] 2.16.840.1.196558.3.579. 2.727 1959 Unknown [id number] 1.2.840.532406.1.13.239. 2.7.3.282921.315 1959 Unknown [id number] Self-pay Self Pay Cosmet[facility] c/Pain Mgmt [id number] Unknown [id number] 2.16.840.1.354392.3.579. 2.531 Unknown [id number] 2.16.840.1.141002.3.579. 2.531 Unknown [id number] 2.16840.1.518236.19 Social History Date Type Detail Facility Start: 04-11-2019 End: 08-07-2024 Tobacco smoking status NHIS Never smoker [facility] Start: 04-11-2019 End: 05-25-2021 Alcohol intake Lifetime non-drinker (finding) [facility] Work Phone: Start: 04-11-2019 End: 01-08-2020 History SDOH Alcohol Frequency 1 [employer] Work Phone: Start: 1965 Sex Assigned At Not on file M [employer] Work Phone: Start: 11-26-2013 End: 01-08-2020 Tobacco use and exposure Never used [employer] Start: 1965 Sex Assigned At Male F [facility] Start: 04-08-2021 End: 05-24-2021 Exposure to SARS-CoV-2 (event) Not sure [facility] Work Phone: Start: 11-05-2022 End: 03-25-2023 Sex Assigned At [facility] Start: 01-26-2014 End: 03-25-2023 Alcohol intake Current non-drinker of alcohol (finding) [facility] Tobacco smoking status Never [facility] Start: 11-05-2022 End: 03-25-2023 [facility] Start: 12-05-2023 End: 02-13-2024 Alcoholic beverage intake [facility] Start: 06-08-2009 End: 09-30-2014 Sex Male (finding) [facility] Sexual Orientation [facility] Medical Equipment Procedure Code Equipment Code Equipment Origin al Text Equipment Identifier Dates CYSTOSCOPY W/ HO SHAINA ARAIZA MD, Octavio Myers 03/28/20 Unknown Abdomen {[id number] Start: 03-28-2020 Screw Darby 3 Alicia nium Set Merlyn Spine - [id number] Start: 12-07-2022 Screw Darby 3 Serr eladio 6.5mm 50mm Bone Polyaxial Nonsterile Spine - [id number] Start: 12-07-2022 Vitoss Ba2x Bioactive Bone Graft Substitute 5.0cub Cm [id number] Start: 12-07-2022 Cage Tritanium 6 d [id number] Spinal Sterile Latex Free Lumbar Posterior - [id number] Start: 12-07-2022 Cage Tritanium 6 d [id number] Spinal Sterile Latex Free Lumbar Posterior - [id number] Start: 12-07-2022 Screw Darby 3 Serr eladio 6.5mm 45mm Bone Polyaxial Nonsterile Spine - [id number] Start: 12-07-2022 Goals Date Patient Goal Desired Activity /State Functional Status Date Assessment Result Facility 02-04-2023 Functional Status N/A [facility] 12-11-2022 Are you deaf, or do you have serious difficulty hearing No 12/11/2022 12:52 PM EDLivia Chase RN [facility] 12-11-2022 Are you blind, or do you have serious difficulty seeing, even when wearing glasses No 12/11/2022 12:52 PM Livia Atkinson RN [facility] 12-11-2022 Do you have serious difficulty walking or climbing stairs No 12/11/2022 12:52 PM Livia Atkinson RN No [facility] 12-11-2022 Do you have difficul ty dressing or bathing No 12/11/2022 12:52 PM Livia Atkinson RN No [facility] 12-11-2022 Because of a physica l, mental, or emotional condition, do you have difficulty doing errands alone such as visiting a physician's office or shopping No 12/11/2022 12:52 PM Livia Atkinson RN No [facility] 10-17-2022 Functional Status N/A General Anaya [facility] 03-19-2022 Functional Status N/A [facility] Mental Status Date Assessment Result Facility 12-11-2022 Because of a physica l, mental, or emotional condition, do you have serious difficulty concentrating, remembering, or making decisions No 12/11/2022 12:52 PM EDT Livia Calix RN No [facility] Clinical Notes 05-03-2021 to 11-19-2024 Telephone Encounter - Cherelle Oleary RN - 04/10/2024 2:13 PM ESTTelephone Encounter - Cherelle Oleary RN - 04/10/2024 2:13 PM SCARLET Enriquez - 02/13/2024 10:45 AM EST Note Date & Type Note Facility 11-19-2024 Hospital Discharge instructions Patient Education 11/19/2024 11:41:03 Kidney Stones, Axuu-xo-Jipz Kidney Stones Kidney stones are rock-like masses [...] Follow these instructions at home: Medicines Take utsr-iaz-uyxhtdd and prescription medicines only as told by [...] provider. Document Revised: 10/05/2022 Document Reviewed: 10/05/2022 [employer] Patient Education 2023 new test company. Follow Up Care 11/16/2024 09:50:41 With:LIDIA JACOBS, Cecelia Jj, URL Address: [address] [place] [address]- When: Unknown Comments:as scheduled [facility] Note Patient Education Urology Kidney [...] these instructions at home: Medicines ??? Take awxn-tvj-hsimnjr and prescription medicines only as told by [...] provider. Document Revised: 10/05/2022 Document Reviewed: 10/05/2022 [employer] Patient Education ? 2023 new test company. [facility] 08-07-2024 Hospital Discharge instructions Patient Education 08/07/2024 [...] include: ?8 oz (237 mL) of milk, tqyytnd-wdnjtucctgfk-kqbih milk, and calcium-fortifiedfruit juice. Calcium-fortified means that [...] ?Spinach (cooked), rhubarb, beets, sweet potatoes, and Norwegian chard. ?Peanuts. ?Potato chips, citizen of [place] fries, and baked potatoes with skin on. ?Nuts and nut products. ?Chocolate. If you regularly take a diuretic medicine, make sure to eat at least 1 or 2 servings of fruits or vegetables that are high in potassium each day. These include: ?Avocado. ?Banana. ?Bayard, prune, carrot, or tomato juice. ?Baked potato. [...] magnesium, fish oil, or vitamin B6. Take baib-yyz-zyxlluw and prescription medicines only as told by [...] Casseroles. Pizza. Lasagna. Frozen meals. Potato chips. [place] Citizen fries. The items listed above may [...] provider. Document Revised: 05/24/2022 Document Reviewed: 05/24/2022 [employer] Patient Education 2023 new test company. Follow Up Care 07/03/2024 14:31:41 With:LIDIA JACOBS, Cecelia Jj, URL Address: [address] [place], [place] [id number]- When: Unknown [facility] 08-07-2024 Note Patient Education Nephrology [...] ? 8 oz (237 mL) of milk, xfuamgd-eicdifxbecza-pmajn milk, and calcium-fortifiedfruit juice. Calcium-fortified means that [...] Spinach (cooked), rhubarb, beets, sweet potatoes, and Norwegian chard. ? Peanuts. ? Potato chips, citizen of the [place] fries, and baked potatoes with skin on. ? Nuts and nut products. ? Chocolate. ??? If you regularly take a diuretic medicine, make sure to eat at least 1 or 2 servings of fruits or vegetables that are high in potassium each day. These include: ? Avocado. ? Banana. ? Bayard, prune, carrot, or tomato juice. ? Baked [...] fish oil, or vitamin B6. ??? Take jhiy-bnf-mdpiwoc and prescription medicines only as told by your health (more content not included)... [facility] 06-17-2024 Note Orthopedic Surgery Subjective Chief [...] CT of the right knee completed at [facility] which we do not have access [...] hyperplasia) CKD (chronic kidney disease) 3 Diabetes ([facility]/HCC) GERD (gastroesophageal reflux disease) Hyperlipidemia Hyperparathyroidism Hypertension Kidney stones Lumbar pain OA (osteoarthritis) Obesity Obstetric pulmonary blood clot embolism, antepartum Sleep apnea Objective General: There is no height or weight on file to calculate BMI. No acute distress, comfortable Respiratory: Unlabored breathing with normal rate, no cough Cardiovascular: Warm well perfused extremiti (more content not included)... [facility] 05-18-2024 Note Orthopedic Surgery Subjective Chief [...] CT of the right knee completed at [facility] which we do not have access [...] hyperplasia) CKD (chronic kidney disease) 3 Diabetes (CMS/[facility]) GERD (gastroesophageal reflux disease) Hyperlipidemia [...] k (more content not included)... [facility] 04-10-2024 Miscellaneous Notes Patient brought in [...] office visit notes can be submitted via [facility]. [facility] Telephone encounter Note Patient brought [...] office visit notes can be submitted via [employer] [facility]. [facility]24 Miscellaneous Notes Patient called today to follow up on his request for a written statement stating that provider feels that patient is totally disabled. Patient is informed that this office does not write such letters, however, office notes can be faxed to his employment attorney's office if that would be beneficial. documented in this encounter [facility] 03-03-2024 Telephone encounter Note Patient called today to follow up on his request for a written statement stating that provider feels that patient is totally disabled. Patient is informed that this office does not write such letters, however, office notes can be faxed to his employment attorney's office if that would be beneficial. [facility] 02-13-2024 History of Present illness Narrative [facility] [address] [place] [address] Patient: Sukhdeep Simental Sex: male : 1965 Age: 58 y.o. PCP: BLAYNE ISABEL MD 02/13/2024 Sukhdeep Simental is here for a(n) follow up for his [employer] work injury. 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 Chief Complaint Patient presents with Back Pain [facility] HPI: 12/07/2022 L2/3 fusion and revised L3/4, S1 at [facility] per patient. Bilateral SI joint injection on 04/17/2021 with 10% relief, pain is worse. 07/07/21 Bilateral L3/4 Medial branch block with no relief. right L 3, 4 nerve root injection on 09/01/2021 with no relef. Back Pain This is a chronic problem. The current episode started more than 1 year ago (surgery 8/22/19 discectomy and 07/10/2019 fusion in severn). The problem occurs constantly. The problem is [...] disorder Claustrophobia Diabetes mellitus type 2, controlled ([facility]) Fractures Hyperlipidemia Hypertension Joint pain Low back pain Major depression Obesity Osteoarthritis Pulmonary embolism ([facility]) Seasonal allergies Sleep apnea does not use machine Sleep apnea Visual impairment glasses Past Surgical History: Procedure Laterality Date ANKLE SURGERY spurs removed INJECTION BLOCK EPIDURAL CAUDAL STEROID N/A 10/27/2021 Performed by Darren Lackey MD at [facility] INJECTION BLOCK NERVE MEDIAL BRANCH: bilat L 3/4 Bilateral 07/07/2021 Performed by Darren Lackey MD at [facility] INJECTION BLOCK SACROILIAC JOINT Bilateral 04/17/2021 Performed by Darren Lackey MD at [facility] INJECTION SPINE TRANSFORAMINAL: right L 3,4 Nroot Right 09/01/2021 Performed by Darren Lackey MD at [facility] JOINT REPLACEMENT knees- right x2, left x1 KNEE SURGERY rt knee inf removed tka added rods LITHOTRIPSY LUMBAR DISCECTOMY L4-5 Left 10/16/2018 Performed by Suzanne Silverio DO at [facility] STOMACH SURGERY 04/2021 sleeve Allergies Allergen [...] Strain: Low Risk (03/28/2022) Received from [facility] Overall Financial Resource Strain (CARDIA) Difficulty of Paying Living Expenses: Not hard at all Food Insecurity: No Food Insecurity (12/05/2023) Hunger Screening Food Insecurity - Worry: Never True Food Insecurity - Inability: Never True Transportation Needs: Unknown (03/28/2022) Received from [facility] PRAPARE - Transportation Lack of Transportation (Medical): No Lack of Transportation (Non-Medical): Not on file Physical Activity: Inactive (12/01/2021) Received from [facility] Exercise Vital Sign Days of Exercise per Week: 0 days Minutes of Exercise per Session: 20 min Stress: No Stress Concern Present (12/01/2021) Received from [facility] [employer] - Occupational Stress Questionnaire Feeling of Stress : Not at all Social Connections: Moderately Isolated (12/01/2021) Received from [facility] Social Connection and Isolation Panel [NHANES] Frequency of Communication with Friends and Family: More than three times a week Frequency of Social Gatherings with Friends and Family: Once a week Attends Hinduism Services: Never Active Member of Clubs or Organizations: No Attends Club or Organization Meetings: Never Marital Status: Interpersonal Safety: Unknown (04/18/2023) Received from [facility] [place] Safety & Environment Fear of Current or Ex-Partner: Not on file Emotionally Abused: Not on file Physically Abused: Not on file Sexually Abused: Not on file Physically or Sexually Abused: Not on file Housing Instability: Unknown (03/28/2022) Received from [facility] Housing Stability Vital Sign Unable to [...] by Cherelle Oleary RN. Provider Statement: I, SCRALET AGUSTIN, personally performed the services described in the documentation, as scribed by Cherelle Oleary RN in my presence, and it is both accurate and complete. Cherelle Oleary RN 02/13/24 1329 SCARLET Agustin 02/13/24 1603 documented in this encounter [facility] 12-05-2023 History of Present illness Narrative [facility] [address] [place] [address] Patient: Sukhdeep Simental Sex: male : 1965 Age: 58 y.o. PCP: BLAYNE ISABEL MD 12/05/2023 Sukhdeep Simental is here for a(n) follow up for his [facility] [facility] work injury. He reports he remains about the same as last visit. Chief Complaint Patient presents with Back Pain HPI: 12/07/2022 L2/3 fusion and revised L3/4, S1 at [facility] per patient. Bilateral SI joint injection on 04/17/2021 with 10% relief, pain is worse. 07/07/21 Bilateral L3/4 Medial branch block with no relief. right L 3, 4 nerve root injection on 09/01/2021 with no relef. Back Pain This is a chronic problem. The current episode started more than 1 year ago (surgery 10/16/18 discectomy and 07/10/2019 fusion in severn). The problem occurs constantly. The problem is [...] disorder Claustrophobia Diabetes mellitus type 2, controlled ([facility]) Fractures Hyperlipidemia Hypertension Joint pain Low back pain Major depression Obesity Osteoarthritis Pulmonary embolism ([facility]) Seasonal allergies Sleep apnea does not use machine Sleep apnea Visual impairment glasses Past Surgical History: Procedure Laterality Date ANKLE SURGERY spurs removed INJECTION BLOCK EPIDURAL CAUDAL STEROID N/A 10/27/2021 Performed by Darren Lackey MD at [facility] INJECTION BLOCK NERVE MEDIAL BRANCH: bilat L 3/4 Bilateral 07/07/2021 Performed by Darren Lackey MD at [facility] INJECTION BLOCK SACROILIAC JOINT Bilateral 04/17/2021 Performed by Darren Lackey MD at [facility] INJECTION SPINE TRANSFORAMINAL: right L 3,4 Nroot Right 09/01/2021 Performed by Darren Lackey MD at [facility] JOINT REPLACEMENT knees- right x2, left x1 KNEE SURGERY rt knee inf removed tka added rods LITHOTRIPSY LUMBAR DISCECTOMY L4-5 Left 10/16/2018 Performed by Suzanne Silverio DO at [facility] STOMACH SURGERY 04/2021 sleeve Allergies Allergen [...] Strain: Low Risk (03/28/2022) Received from [facility] Overall Financial Resource Strain (CARDIA) Difficulty of Paying Living Expenses: Not hard at all Food Insecurity: No Food Insecurity (12/05/2023) Hunger Screening Food Insecurity - Worry: Never True Food Insecurity - Inability: Never True Transportation Needs: Unknown (03/28/2022) Received from [facility] PRAPARE - Transportation Lack of Transportation (Medical): No Lack of Transportation (Non-Medical): Not on file Physical Activity: Inactive (12/01/2021) Received from [facility] Exercise Vital Sign Days of Exercise per Week: 0 days Minutes of Exercise per Session: 20 min Stress: No Stress Concern Present (12/01/2021) Received from [facility] [employer]ational Health - Occupational Stress Questionnaire Feeling of Stress : Not at all Social Connections: Moderately Isolated (12/01/2021) Received from [facility] Social Connection and Isolation Panel [NHANES] Frequency of Communication with Friends and Family: More than three times a week Frequency of Social Gatherings with Friends and Family: Once a week Attends Hinduism Services: Never Active Member of Clubs or Organizations: No Attends Club or Organization Meetings: Never Marital Status: Interpersonal Safety: Unknown (04/18/2023) Received from [facility] [place] Safety & Environment Fear of Current or Ex-Partner: Not on file Emotionally Abused: Not on file Physically Abused: Not on file Sexually Abused: Not on file Physically or Sexually Abused: Not on file Housing Instability: Unknown (03/28/2022) Received from [facility] Housing Stability Vital Sign Unable to Pay for Housing in the Last Year: Not on file Number of Places Lived in the Last Year: Not on file In the last 12 months, was there a time when you did not have a steady place to sleep or slept in a skilled nursing (including now)?: No Review of Systems Constitutional: [...] Agustin 12/12/23 0942 documented in this encounter [employer] 10-07-2023 Telephone encounter Note Pt phoned to ensure todays appt was via phone as noted in appt. Pt unable to manage computer. [facility] 10-07-2023 Miscellaneous Notes Pt phoned to ensure todays appt was via phone as noted in appt. Pt unable to manage computer. documented in this encounter [facility] 10-04-2023 Telephone encounter Note Laura report XR Lumbar Spine 2-3v scanned to [facility] 10-04-2023 Miscellaneous Notes Laura report XR Lumbar Spine 2-3v scanned to Epic documented in this encounter [facility] 08-15-2023 History of Present illness Narrative [facility] [address] [place] [address] Patient: Sukhdeep Simental Sex: male : 1965 Age: 57 y.o. PCP: BLAYNE ISABEL MD 08/15/2023 Sukhdeep Simental is here for a(n) follow up for his [facility] work injury. He reports he has pain higher than before surgery. Chief Complaint Patient presents with Back Pain HPI: 12/07/2022 L2/3 fusion and revised L3/4, S1 at [facility] per patient. Bilateral SI joint injection on 04/17/2021 with 10% relief, pain is worse. 07/07/21 Bilateral L3/4 Medial branch block with no relief. right L 3, 4 nerve root injection on 09/01/2021 with no relef. Back Pain This is a chronic problem. The current episode started more than 1 year ago (surgery 10/16/18 discectomy and 07/10/2019 fusion in severn). The problem occurs constantly. The problem has [...] disorder Claustrophobia Diabetes mellitus type 2, controlled ([facility]) Fractures Hyperlipidemia Hypertension Joint pain Low back pain Major depression Obesity Osteoarthritis Pulmonary embolism ([facility]) Seasonal allergies Sleep apnea does not use machine Sleep apnea Visual impairment glasses Past Surgical History: Procedure Laterality Date ANKLE SURGERY spurs removed INJECTION BLOCK EPIDURAL CAUDAL STEROID N/A 10/27/2021 Performed by Darren Lackey MD at [facility] INJECTION BLOCK NERVE MEDIAL BRANCH: bilat L 3/4 Bilateral 07/07/2021 Performed by Darren Lackey MD at [facility] INJECTION BLOCK SACROILIAC JOINT Bilateral 04/17/2021 Performed by Darren Lackey MD at [facility] INJECTION SPINE TRANSFORAMINAL: right L 3,4 Nroot Right 09/01/2021 Performed by Darren Lackey MD at [facility] JOINT REPLACEMENT knees- right x2, left x1 KNEE SURGERY rt knee inf removed tka added rods LITHOTRIPSY LUMBAR DISCECTOMY L4-5 Left 10/16/2018 Performed by Suzanne Silverio DO at [facility] STOMACH SURGERY 04/2021 sleeve Allergies Allergen [...] Strain: Low Risk (03/28/2022) Received from [facility] Overall Financial Resource Strain (CARDIA) Difficulty of Paying Living Expenses: Not hard at all Food Insecurity: No Food Insecurity (08/15/2023) Hunger Screening Food Insecurity - Worry: Never True Food Insecurity - Inability: Never True Transportation Needs: Unknown (03/28/2022) Received from [facility] PRAPARE - Transportation Lack of Transportation (Medical): No Lack of Transportation (Non-Medical): Not on file Physical Activity: Inactive (12/01/2021) Received from [facility] Exercise Vital Sign Days of Exercise per Week: 0 days Minutes of Exercise per Session: 20 min Stress: No Stress Concern Present (12/01/2021) Received from [facility] [employer]ational Health - Occupational Stress Questionnaire Feeling of Stress : Not at all Social Connections: Moderately Isolated (12/01/2021) Received from [facility] Social Connection and Isolation Panel [NHANES] Frequency of Communication with Friends and Family: More than three times a week Frequency of Social Gatherings with Friends and Family: Once a week Attends Hinduism Services: Never Active Member of Clubs or Organizations: No Attends Club or Organization Meetings: Never Marital Status: Interpersonal Safety: Unknown (04/18/2023) Received from [facility] [place] Fear of Current or Ex-Partner: Not on file Emotionally Abused: Not on file Physically Abused: Not on file Sexually Abused: Not on file Physically or Sexually Abused: Not on file Housing Instability: Unknown (03/28/2022) Received from [facility] Housing Stability Vital Sign Unable to Pay for Housing in the Last Year: Not on file Number of Places Lived in the Last Year: Not on file In the last 12 months, was there a time when you did not have a steady place to sleep or slept in a skilled nursing (including now)?: No Review of Systems Constitutional: [...] and it is both accurate and complete. Sonla Rodriguez CNA 08/15/23 1228 SCARLET Agustin 08/15/23 1311 documented in this encounter [facility] 07-30-2023 Telephone encounter Note Called Sukhdeep, no answer, left VM [facility] Work Phone: 07-30-2023 Miscellaneous Notes Called Sukhdeep, no answer, left VM Have sent XR Lumbar order to [place] fax # [phone] as requested from patient. Pt phoned regarding [facility]. Pt unable to manage virtual visit asking for telephone visit. Pt asking how far in advance to do X-Ray. Pt will have X-Ray done locally at [place]. Please call and advise Pt phone # [phone] documented in this encounter [facility] 07-30-2023 Telephone encounter Note Have sent XR Lumbar order to [place] fax # [phone] as requested from patient. [facility] 07-30-2023 Telephone encounter Note Pt phoned regarding upcoming visit [facility]. Pt unable to manage virtual visit asking for telephone visit. Pt asking how far in advance to do X-Ray. Pt will have X-Ray done locally at [place]. Please call and advise Pt phone # [phone] [facility] 07-26-2023 Telephone encounter Note Office note faxed. Faxed verification received. [facility] 07-26-2023 Miscellaneous Notes Office note faxed. Faxed verification received. Printed for review. Received request from [employer] more [employer], in [employer] for review. documented in this encounter [facility] 07-23-2023 Telephone encounter Note Printed for review. [facility] 07-23-2023 Telephone encounter Note Received request from [employer], in [employer] for review. [facility] 05-08-2023 History of Present illness Narrative SPINE SURGERY FOLLOW UP This is a virtual visit using Audio Only Visit. It required patient-provider interaction for the medical decision making as documented below. I have communicated my name and active licensure. The patient's identity and physical location were verified at the time of this visit. Either the patient or their legal instruments sales representative has been informed of the [...] visit. Either the patient or their legal instruments sales representative has been informed of the [...] 4:00 PM PAGER: documented in this encounter [facility] 05-08-2023 Miscellaneous Notes A letter was received [...] Message left. documented in this encounter [facility] 05-08-2023 Telephone encounter Note A letter [...] time call was made. Message left. [facility] 05-07-2023 Miscellaneous Notes Call received from Hannah, patient's case picker. She called as patient's MEDCO-14 is expiring soon. Hannah is informed that patient called about this and an updated MEDCO-14 was completed and faxed on 05/03/2023. Hannah states she is his case picker and would like information sent to her [...] will be 05/15/2023-11/14/2023. documented [facility] this encounter [facility] 05-07-2023 Telephone encounter Note Call received from Hannah, patient's case picker. She called as patient's MEDCO-14 is expiring soon. Hannah is informed that patient called about this and an updated MEDCO-14 was completed and faxed on 05/03/2023. Hannah states she is his case picker and would like information sent to her at - [employer]. She asked what the form states. She is informed that there are no changes . She asks if patient is able to return to work. She is informed again that MEDCO 14 indicates No Changes and office restrictions ordered by this office have not changed. Hannah is reminded that patient had surgery. Hannah informed that new dates for restrictions will be 05/15/2023-11/14/2023. [facility] 04-18-2023 Miscellaneous Notes Signed form faxed to number requested. Faxed verification received. Printed for review and signature. Received PT Certification from [facility]. Scanned to chart for provider signature. documented in this encounter [facility] 04-16-2023 Miscellaneous Notes Received imaging disc by mail from [facility]. Disc contains CT Lumbar spine done on 04/03/23. Will place in nurse folder in [address]. documented in this encounter [facility] 04-09-2023 Miscellaneous Notes Called & spoke with Sukhdeep Asked him to obtain imaging disc & send to our office. Will require images to be uploaded to assess for bony fusion at previous surgical site and adjacent segment disease. Received CT Lumbar Spine Report from [facility], in epic to review. documented in this encounter [facility] 02-14-2023 History of Present illness Narrative [facility] [address] [place] [address] Patient: Sukhdeep Simental Sex: male : 1965 Age: 57 y.o. PCP: BLAYNE ISABEL MD 02/14/2023 Sukhdeep Simental is here for a 6 month follow up for his [facility] [facility] work injury. Chief Complaint Patient presents with Back Pain HPI: 12/07/2022 L2/3 fusion and revised L3/4, S1 at [facility] per patient. Bilateral SI joint injection on 04/17/2021 with 10% relief, pain is worse. 07/07/21 Bilateral L3/4 Medial branch block with no relief. right L 3, 4 nerve root injection on 09/01/2021 with no relef. Back Pain This is a chronic problem. The current episode started more than 1 year ago (surgery 10/16/18 discectomy and 07/10/2019 fusion in severn). The problem occurs constantly. The problem has [...] disorder Claustrophobia Diabetes mellitus type 2, controlled ([facility]) Fractures Hyperlipidemia Hypertension Joint pain Low back pain Major depression Obesity Osteoarthritis Pulmonary embolism ([facility]) Seasonal allergies Sleep apnea does not use machine Sleep apnea Visual impairment glasses Past Surgical History: Procedure Laterality Date ANKLE SURGERY spurs removed INJECTION BLOCK EPIDURAL CAUDAL STEROID N/A 10/27/2021 Performed by Darren Lackey MD at [place] [facility] [facility] INJECTION BLOCK NERVE MEDIAL BRANCH: bilat L 3/4 Bilateral 07/07/2021 Performed by Darren Lackey MD at [facility] INJECTION BLOCK SACROILIAC JOINT Bilateral 04/17/2021 Performed by Darren Lackey MD at [facility] INJECTION SPINE TRANSFORAMINAL: right L 3,4 Nroot Right 09/01/2021 Performed by Darern Lackey MD at [facility] JOINT REPLACEMENT knees- right x2, left x1 KNEE SURGERY rt knee inf removed tka added rods LITHOTRIPSY LUMBAR DISCECTOMY L4-5 Left 10/16/2018 Performed by Suzanne Silverio DO at [facility] STOMACH SURGERY 04/2021 sleeve Allergies Allergen [...] 02/21/23 1158 documented in this encounter [facility] 02-07-2023 Miscellaneous Notes C9 for physical therapy faxed to [facility]. Faxed verification received. documented in this encounter [facility] 02-07-2023 History of Present illness Narrative SPINE [...] which included preparing to see the patient, lrxm-fp-hvrt patient care, completing clinical documentation, obtaining and/or reviewing separately obtained history, performing a medically appropriate examination, counseling and educating the patient/family/caregiver, and ordering medications, tests, or procedures. SIGNATURE: Riddhi Goss APRN.CNP PATIENT NAME: Sukhdeep Simental DATE: February 07, 2023 TIME: 2:39 PM PAGER: documented in this encounter [facility] 02-04-2023 Hospital Discharge instructions Patient Education 02/04/2023 [...] include: ?8 oz (237 mL) of milk, bpyjgef-gndkyvubugoz-wncsc milk, and calcium-fortifiedfruit juice. Calcium-fortified means that [...] ?Spinach (cooked), rhubarb, beets, sweet potatoes, and Norwegian chard. ?Peanuts. ?Potato chips, citizen of the [place] fries, and baked potatoes with skin on. ?Nuts and nut products. ?Chocolate. If you regularly take a diuretic medicine, make sure to eat at least 1 or 2 servings of fruits or vegetables that are high in potassium each day. These include: ?Avocado. ?Banana. ?Bayard, prune, carrot, or tomato juice. ?Baked potato. [...] magnesium, fish oil, or vitamin B6. Take jhce-wan-ltfvyuj and prescription medicines only as told by [...] Casseroles. Pizza. Lasagna. Frozen meals. Potato chips. [place] Citizen fries. The items listed above may [...] provider. Document Revised: 05/24/2022 Document Reviewed: 05/24/2022 [employer] Patient Education 2022 new test company. Follow Up Care 07/27/2022 14:20:34 With:LIDIA JACOBS, Cecelia Jj, URL Address: [facility] [address] , [place] [address]- When:Within 1 Year(s) Comments:w/CT EVELINE w/o José [facility] 01-23-2023 Miscellaneous Notes Received fax from [facility]. Scanned into [place]. Also received a RTW from [place]. Scanned into [place] as well. documented in this encounter [facility] 12-21-2022 Miscellaneous Notes Patient called with complaints of [facility] not allowing him to picker packer the pain medication that was sent yesterday. [...] with an update. documented in this encounter [facility] 12-20-2022 History of Present illness Narrative SPINE [...] which included preparing to see the patient, frsu-gr-qfap patient care, completing clinical documentation, obtaining and/or reviewing separately obtained history, performing a medically appropriate examination, counseling and educating the patient/family/caregiver, and ordering medications, tests, or procedures. SIGNATURE: iSngh Morgan PA-C PATIENT NAME: Sukhdeep Simental DATE: December 20, 2022 TIME: 2:58 PM PAGER: documented in this encounter [facility] 12-17-2022 Miscellaneous Notes Forms completed and signed by provider. Faxed to number provided and and Sukhdeep notified via voice mail, as requested. Scanned into [employer]. Form completed. Awaiting signature. Printed for review. Received FMLA form by fax from patient's . Scanned to patient's chart for review and completion. documented in this encounter [facility] 12-13-2022 Miscellaneous Notes Spoke with patient at [...] a kenya. Xi Schrader PA-C Patient at [phone] is requesting a call back. He had back surgery on 12-07. He states for the past 2 days his right ring and little finger has been numb. documented in this encounter [facility] 12-12-2022 Miscellaneous Notes Spoke with pharmacy and was informed that medication is approved. No prior authorization needed. Patient called stating pharmacy needs a prior authorization for oxycodone 15 mg. I called the pharmacy on 12/12/2022 at 9:40 AM. Insurance will not pay for the frequency of medication written. They will cover q12h. Prescription changed to oxycodone 15 mg 12h. [facility] [id number] - [place] [address] - [address] - [phone] Pharmacist at [facility] wanted to inform the office that this patient already takes Percocet 10-325 every 6 hours, picked it up 13 days ago. They tried running the Percocet but his insurance will not cover both. Please call them back with new instructions. documented in this encounter [facility] 12-11-2022 Note HNO ID: [id number] Author: Lulu Oviedo MD Service: General Internal [...] 10 mg tab( (more content not included)... [facility] 12-10-2022 Note HNO ID: [id number] Author: Lulu Oviedo MD Service: General Internal [...] 10% iv bolu (more content not included)... [facility] 12-09-2022 Note HNO ID: [id number] Author: Alyssa Tim APRN.SUPERVISOR CURING ROOM Service: Neurosurgery Author Type: Nurse Practitioner Type: [...] is currently not well controlled despite Dilaudid TRAINMASTER and Toradol. He denies new weakness, numbness, [...] mg ORAL q 8 H Archual, Alyssa, TRUCK SPOTTER.SUPERVISOR CURING ROOM 1,000 mg at 12/09/22 0559 aluminum-magnesium hydroxide-simethicone 200-200-20 mg/5 mL 30 mL 30 mL ORAL q 6 H PRN Archual, Alyssa, TRUCK SPOTTER.SUPERVISOR CURING ROOM bisacodyl EC 10 mg tab(s) (DULCOLAX) 10 mg ORAL DAILY PRN Archual, Alyssa, TRUCK SPOTTER.SUPERVISOR CURING ROOM dextrose 40 % 15 g 15 g ORAL PRN Archual, Alyssa, TRUCK SPOTTER.SUPERVISOR CURING ROOM Or glucagon 1 mg injection 1 mg INTRAMUSCULAR PRN Archual, Alyssa, TRUCK SPOTTER.SUPERVISOR CURING ROOM Or dextrose 10% iv bolus 12.5 g INTRAVENOUS PRN Archual, Alyssa, TRUCK SPOTTER.SUPERVISOR CURING ROOM docusate sodium 100 mg cap(s) (COLACE) 100 mg ORAL BID Thomas Mathew MD 100 mg at 12/09/22 0821 doxazosin 4 mg tab(s) (CARDURA) 4 mg ORAL DAILY Thomas Mathew MD 4 mg at 12/09/22 0821 fentaNYL TRAINMASTER 20 mcg/mL in NaCl 0.9% 100 mL (SUBLIMAZE) INTRAVENOUS CONTINUOUS Archual, Alyssa, TRUCK SPOTTER.SUPERVISOR CURING ROOM ferrous sulfate 325 mg tab(s) 325 mg ORAL DAILY Archual, Alyssa, TRUCK SPOTTER.SUPERVISOR CURING ROOM 325 mg at 12/09/22 0821 heparin 5,000 Units injection 5,000 Units SUBCUTANEOUS q 12 H Archual, Alyssa, TRUCK SPOTTER.SUPERVISOR CURING ROOM 5,000 Units at 12/09/22 0821 hydrOXYzine HCl 25 mg tab(s) (ATARAX) 25 mg ORAL q 6 H PRN Archual, Alyssa, TRUCK SPOTTER.SUPERVISOR CURING ROOM insulin lispro injection (rapid acting) (HumaLOG) SUBCUTANEOUS w MEALS AND HS Archual, Alyssa, TRUCK SPOTTER.SUPERVISOR CURING ROOM 1 Units at 12/07/22 1803 lactated ringers iv infusion 75 mL/hr INTRAVENOUS CONTINUOUS Thomas Mathew MD 75 mL/hr at 12/09/22 1018 75 mL/hr at 12/09/22 1018 methocarbamol 750 mg tab(s) (ROBAXIN) 750 mg ORAL QID Archual, Alyssa, TRUCK SPOTTER.SUPERVISOR CURING ROOM NaCl 0.9% iv flush bag 20 mL INTRAVENOUS PRN Thomas Mathew MD naloxone 0.1 mg injection (NARCAN) 0.1 mg INTRAVENOUS q 2 MIN PRN Archual, Alyssa, TRUCK SPOTTER.SUPERVISOR CURING ROOM omeprazole 20 mg cap(s) (PriLOSEC) 20 mg ORAL 2 times per day Michael York, [facility] 20 mg at 12/08/222019 ondansetron 4 mg tab(s) (ZOFRAN) 4 mg ORAL q 6 H PRN Thomas Mathew MD Or ondansetron (PF) 4 mg injection (ZOFRAN) 4 mg INTRAVENOUS q 6 H PRN Thomas Mathew MD 4 mg at 12/09/22 0941 polyethylene glycol 3350 17 g packet 17 g ORAL DAILY Archual, Alyssa, TRUCK SPOTTER.SUPERVISOR CURING ROOM 17 g at 12/09/22 0821 simvastatin 10 mg tab(s) (ZOCOR) 10 mg ORAL AT BEDTIME Thomas Mathew MD 10 mg at 12/08/222019 tamsulosin 0.4 mg cap(s) (FLOMAX) 0.4 mg ORAL DAILY Thomas Mathew MD 0.4 mg at 12/09/22 0821 traZODone 150 mg tab(s) (DESYREL) 150 mg ORAL AT BEDTIME Alysas Tim APRN.SUPERVISOR CURING ROOM 150 mg at 12/08/222019 valsartan 80 mg tab(s) (DIOVAN) 80 mg ORAL DAILY Alyssa Tim APRN.SUPERVISOR CURING ROOM 80 mg at 12/09/22 0822 ASSESSMENT AND [...] pain control, Pain management consulted, started Fentanyl TRAINMASTER today due to continued uncontrolled pain, Robaxin and Tylenol scheduled, no further Toradol due to CKD 3. -Check postop lumbar XR today -Medicine consult for post-operative medical management -Discharge planning, anticipate discharge home in 1-2 more days. Plan of care discussed with Dr. Mathew via phone. Medication and Non-Pharmacologic VTE Prophylaxis/Anticoagulants 10/25/21 1215 vte pharmacologic prophylaxis contraindicated (fl,oh) (more content not included)... [facility] 12-08-2022 Note HNO ID: [id number] Author: Alyssa Tim APRN.SUPERVISOR CURING ROOM Service: Neurosurgery Author Type: Nurse Practitioner Type: [...] on POD #2 -Post-operative pain control, Dilaudid TRAINMASTER discontinued. Continue Tylenol, Toradol IV, and Robaxin PRN. Start oxycodone every 3 hours PRN and Dilaudid IV PRN. -Check postop XR tomorrow. -Medicine consult for post-operative medical management -Discharge planning, anticipate discharge home in 1-2 more days. Plan of care discussed with Dr Hopper via phone. Medication and Non-Pharmacologic VTE Prophylaxis/Anticoagulants 10/25/21 1215 vte pharmacologic prophylaxis contraindicated (mt,oh) 10/25/21 1215 pneumatic compression stockings (mt,ky) 10/25/21 1215 activity - mobilize patient ([place], [place]) VTE Prophylaxis: VTE prophylaxis appropriate SIGNATURE: Alyssa Tim APRN.SUPERVISOR CURING ROOM DATE: December 08, 2022 TIME: 1:50 PM [facility] 12-08-2022 Note HNO ID: [id number] Author: Note, Interface Service: ? Author Type: ? Type: Progress Notes Filed: 12/08/2022 3:59 AM Note Text: Epic Scheduled Downtime: 12/08/2022 1:00:00 AM to 12/08/2022 1:28:00 AM [facility] 12-07-2022 Note HNO ID: [id number] Author: Aaron Noriega AA Service: Anesthesiology Author Type: Network Engineering Advisor Type: Anesthesia Procedure Notes Filed: 12/07/2022 8:04 [...] December 07, 2022 TIME: 8:03 AM CSN: [id number] [facility] 12-06-2022 Evaluation note Encounter Date [...] has adequate iron stores. 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 12/07/2022 documented as of this encounter (statuses as of 12/18/2022) [facility] History of Past illness Narrative* Problem Noted Date Diagnosed Date Resolved Date Secondary hyperparathyroidism 11/21/2022 11/21/2022 11/21/2022 Corneal edema, unspecified 12/10/2013 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 12/07/2022 documented as of this encounter (statuses as of 12/21/2022) [address]27-2023 History of Past illness Narrative* Problem Noted Date Diagnosed Date Resolved Date Secondary hyperparathyroidism 11/21/2022 11/21/2022 11/21/2022 Corneal edema, unspecified 12/10/2013 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 12/07/2022 documented as of this encounter (statuses as of 12/21/2022) [address]-2023 History of Past illness Narrative* Problem Noted Date Diagnosed Date Resolved Date Secondary hyperparathyroidism 11/21/2022 11/21/2022 11/21/2022 Corneal edema, unspecified 12/10/2013 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 12/07/2022 documented as of this encounter (statuses as of 01/24/2023) [address]-2023 History of Past illness Narrative* Problem Noted Date Diagnosed Date Resolved Date Secondary hyperparathyroidism 11/21/2022 11/21/2022 11/21/2022 Corneal edema, unspecified 12/10/2013 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 12/07/2022 documented as of this encounter (statuses as of 02/08/2023) [address]-2023 History of Past illness Narrative* Problem Noted Date Diagnosed Date Resolved Date Secondary hyperparathyroidism 11/21/2022 11/21/2022 11/21/2022 Corneal edema, unspecified 12/10/2013 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 12/07/2022 documented as of this encounter (statuses as of 02/09/2023) [address]23 History of Past illness Narrative* Problem Noted Date Diagnosed Date Resolved Date Secondary hyperparathyroidism 11/21/2022 11/21/2022 11/21/2022 Corneal edema, unspecified 12/10/2013 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 12/07/2022 documented as of this encounter (statuses as of 04/09/2023) [address]23 History of Past illness Narrative* Problem Noted Date Diagnosed Date Resolved Date Secondary hyperparathyroidism 11/21/2022 11/21/2022 11/21/2022 Corneal edema, unspecified 12/10/2013 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 12/07/2022 documented as of this encounter (statuses as of 04/18/2023) [facility] History of Past illness Narrative* Problem Noted Date Diagnosed Date Resolved Date Secondary hyperparathyroidism 11/21/2022 11/21/2022 11/21/2022 Corneal edema, unspecified 12/10/2013 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 12/07/2022 documented as of this encounter (statuses as of 05/13/2023) [facility] History of Past illness Narrative* Problem Noted Date Diagnosed Date Resolved Date Secondary hyperparathyroidism 11/21/2022 11/21/2022 11/21/2022 Corneal edema, unspecified 12/10/2013 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 Given both written and verbal instructions re : Skin prep, wound care, pain management and post op restrictions. Provided to patient: [facility] Surgery Guide, skin prep supplies, Spine Surgery Pre/post op education packet. Yes Reviewed with patient to report to the registration desk for surgery? Yes. Reviewed with the patient that a surgery representative phlebotomy services will call the working day prior to [...] lab work : To be completed at [facility]. Questions answered. Patient verbalizes understanding via teach back. Additional comments : Informed to call with any questions or concerns. Juan Pablo Nova RN [facility] History of Present illness Narrative* Thomas Mathew [...] TIME: 2:20 PM PAGER: documented in this [facility]23 NoteHNO ID: [id number] Author: Sonya Wilhelm APRN.SUPERVISOR CURING ROOM Service: ? Author Type: Nurse Practitioner Type: Progress Notes Filed: 10/16/2022 4:03 PM Note Text: Per Triage: Sukhdeep Simental is a 57 year old male that requests evaluation of lumbar spine. Per review, they have symptoms of LBP Hip pain Leg pain (R) Numbness, Tingling Toes Trouble lifting leg (R) Prev surgery yes L4-S1 fusion in [facility] CMT: Injection Muscle relaxants, Zanaflex Studies (Reports [...] schedule with first available lumbar revision surgeon. [facility]08-22-2023 History of Present illness Narrative* Sonya Wilhelm APRN.SUPERVISOR CURING ROOM - 10/16/2022 3:51 PM EDT Per Triage: Sukhdeep Simental is a 57 year old male that requests evaluation of lumbar spine. Per review, they have symptoms of LBP Hip pain Leg pain (R) Numbness, Tingling Toes Trouble lifting leg (R) Prev surgery yes L4-S1 fusion in [facility] CMT: Injection Muscle relaxants, Zanaflex Studies (Reports [...] Health Provider or Pain Management Provider at [facility]? No If answer is YES [...] the MRI/CT/myelogram was completed: [facility] Address: [address] [place] [address] MRI/CT/myelogram viewable in Epic: No If not, please provide [phone] to fax in imaging reports for review. [...] injections and/or physical therapy was completed Injection [facility] Address: [address] [place] [address] Have you tried any other kinds of [...] of where the surgery was completed: 2019 [facility] Address: [address], [place] [address] Additional Comments [phone] (Home Phone) documented in [facility]23 NoteHNO ID: [id number] Author: Adonis Lopez Service: ? Author Type: ? Type: Progress Notes Filed: 10/16/2022 4:03 PM Note Text: Patient name: Sukhdeep Simental Are you being referred by a [facility] Spine Health Provider or Pain Management Provider at [facility]? No If answer is YES [...] the MRI/CT/myelogram was completed: [facility] Address: [address] [place] [address] MRI/CT/myelogram viewable in Epic: No If not, please provide [phone] to fax in imaging reports for review. [...] injections and/or physical therapy was completed Injection [facility] Address: [address] [place] [address] Have you tried any other kinds of [...] of where the surgery was completed: 2019 [facility] Address: [address], [place] [address] Additional Comments [phone] (Home Phone)[facility]04-27-2023 Evaluation note* Encounter Date Diagnosis Assessment [...] will continue to monitor without any medications. [employer] Other 01-23-2023 Hospital Discharge instructions Patient Education [...] include: ?Spinach. ?Rhubarb. ?Beets. ?Potato chips and citizen of the [place] fries. ?Nuts. If you regularly take a diuretic medicine, make sure to eat at least 1 2 fruits or vegetables high in potassium each day. These include: ?Avocado. ?Banana. ?[place]ard, prune, carrot, or tomato juice. ?Baked potato. [...] Casseroles. Pizza. Lasagna. Frozen meals. Potato chips. [place] Citizen fries. Summary You can reduce your [...] 06/08/2011 Document Revised: 06/03/2019 Document Reviewed: 01/22/2017 [employer] Patient Education 2019 new test company. Follow Up Care 03/15/2022 09:49:40 With:LIDIA JACOBS, Cecelia Jj, URL Address: [facility] [address], [place] [address]- When: Unknown [facility] 01-16-2023 NoteIndication: Renal mass. Comparison: [...] Electronically authenticated by: CITLALI GIRON Date: 2022-03-12 18:03[facility]10-21-2022 Evaluation note* Encounter Date Diagnosis Assessment Notes [...] be cultured for infection, gonorrhea, chlamydia, yeast. [employer] Other 08-31-2022 Evaluation note* Encounter Date Diagnosis [...] paraproteinemia due to the CKD and anemia. [employer] [facility] Other 04-01-2022 History of Present illness Narrative* [...] the original note were not included. [employer] Librarian Progress Note Date: 05/26/2021 Patient name: Sukhdeep [...] 2. Ok for d/c from cardiology standpoint. [place] Government Documents Librarian [facility]. [phone] * Octavio Mcclellan DO - 05/25/2021 5:42 [...] RN - 05/25/2021 8:32 AM EDT [employer] Librarian Documentation Note Admission Dx: S/P laparoscopic sleeve [...] on an annual basis Tona Foreman RN [place] [employer] Documents Librarian * Sonya Ramírez, DO - 05/25/2021 6:45 [...] Day of Surgery/Procedure As a patient at [facility] you can expect quality medical and nursing care that is centered on your individual needs. Our goal is to make your surgical experience as comfortableas possible . Directions to the Surgery Center [facility] is located at [address] [place] [address]. Please pull into the Emergency parking lot and stop at the muffler tender ojeda. We offer free muffler tender service for all our surgery patients, if you choose not to have muffler tender parking we have additional parking across the street.You will enter the facility under the blue canopy/walkway following the [facility] sign. Please stop at the medical receptionist medical assistant desk where you will be checked in by the staff. If you have any questions please call [phone]. Transportation after your procedure. You will need a friend or family member to drive you home after your procedure. Your pickup driver must be18 years of age or [...] You may shave your face or neck. [place] your teeth but do not swallow water. [...] or the day of surgery, please call [phone], or [phone] documented in this [facility] Phone: 1(545) 594-704803-31-2022 Hospital Discharge instructions* Discharge Instr - KAMARI* Jenny Lentz RN - 05/25/2021 5:44 PM EDT PHYSICIAN SIGNATURE: * Additional Instructions* Jenny Lentz RN - 05/26/2021 Discharge Instructions for Bariatric Surgery You had a Laparoscopic Sleeve Gastrectomy (32142) surgery to treat obesity. Recovery from this [...] scheduled appointment, please call the office at [phone]. Call Your Doctor If Any of the [...] sent through Care Everywhere. * Enoxaparin (Lovenox) (Micronesian) * metoprolol (oral/injection) (Micronesian) * acetaminophen and oxycodone (Micronesian) documented in this [facility] Phone: 1(951) 485-531203-09-2022 Hospital Discharge instructions* Instructions* Etelvina Ledbetter TRUCK SPOTTER - SUPERVISOR CURING ROOM - 05/03/2021 Pre-operative Instructions Please arrive at [...] list you provided today, ACCORDING TO YOUR TRAINING DEVELOPMENT SPECIALIST, PLEASE HOLD ELIQUIS 3 DAYS PRIOR TO [...] public transportation ALONE is not acceptable. -Your pickup driver must be 18 years of age [...] Day of Surgery/Procedure As a patient at [facility] you can expect quality medical and nursing care that is centered on your individual needs. Our goal is to make your surgical experience as comfortableas possible . Directions to the Surgery Center [facility] is located at [address] [place] [address]. Please pull into the Emergency/Surgery Center parking lot and stop at the [place] ojeda. We offer free muffler tender service for all our surgery patients, if you choose not to have muffler tender parking we have additional parking across the [...] pharmacy bottles in a zip lock bag. [place] your teeth but do not swallow water. [...] DAY OF your surgery, you may call [phone] documented in this [facility] Phone: evaluation + Plan note Future Appointments Appointment Date:07/16/2022 02:45:00 PM Scheduled Provider:Cecelia MURILLO MD Location:[facility] Appointment Type:URO Office Visit [facility] evaluation + Plan note Future Appointments Appointment Date:02/04/2023 09:15:00 AM Scheduled Provider:Cecelia MURILLO MD Location:[facility] Appointment Type:URO Office Visit General Surgery [place] Evaluation + Plan note Future Appointments Appointment Date:02/03/2024 10:30:00 AM Scheduled Provider:Cec[facility]URILLO [facility] Office Visit Diagnostic Tests Pending * PSA Total 02/04/23 [facility] evaluation + Plan note Future Appointments Appointment Date:08/13/2025 10:45:00 AM Scheduled Provider:Cecelia MURILLO MD Location:[facility] Appointment Type:URO Office Visit Diagnostic Tests Pending * PSA Total 06/25/25 [facility] evaluation + Plan note Future Appointments Appointment Date:08/13/2025 10:45:00 AM Scheduled Provider:Cecelia MURILLO MD Location:[facility] Appointment Type:URO Office Visit [facility] evaljrsmse note* Diagnosis Pre-op chest exam Pre-operative respiratory examination documented in this encounter [facility] Phone: evalxdpxru note* Diagnosis S/P laparoscopic sleeve gastrectomy- Primary documented in this encounter [facility] Phone: evalqopnee noteNo [facility] Other Evaluation noteNo assessment information available [facility] Work Phone: Evaluation note* Diagnosis Lumbar adjacent segment disease with spondylolisthesis- Primary Lumbar adjacent segment disease with spondylolisthesis [facility] Diagnosis Lumbar adjacent segment disease with spondylolisthesis- Primary documented in this encounter [facility] note* Diagnosis Lumbar adjacent segment disease with spondylolisthesis- Primary documented in this encounter [facility] note* Diagnosis Radiculopathy, lumbar region- Primary Thoracic or lumbosacral neuritis or radiculitis, unspecified [facility] Diagnosis Onset Date Resolution Status CKD (chronic kidney disease) stage 3, GFR 30-59 ml/min acute [id number] acute Hyperuricemia acute Microscopic hematuria acute Nephrolithiasis acute Secondary hyperparathyroidism acute Type 2 diabetes 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 acute [facility] Work Phone: Evaluation note* Diagnosis Spinal stenosis, lumbar region, with neurogenic claudication- Primary [facility] Diagnosis Spinal stenosis, lumbar region, with neurogenic claudication- Primary [facility] Diagnosis Spinal stenosis, lumbar [...] GASTRIC SLEEVE 04/2021 Hospitalization History SEE ABOVE [facility] [employer] Other History general Narrative - Reported* Type [...] REPLACEMENT 04/16 22 Hospitalization History SEE ABOVE [facility] Other Hospital course Narrative No data available for this section [facility] Hospital Discharge instructions No data available for this section General Surgery [place] InstructionsNot on filedocumented in this encounter [facility] filedocumented in this encounter [facility] filedocumented in this encounter [facility] No data available for this section [facility] reason for referral (narrative)* Diagnostic Procedure Only (Routine) - Pending Review Specialty Diagnoses / Procedures Referred By Contac t Referred To Contact XR IMAGING Diagnoses Lumbar adjacent segment disease with spondylolisthesis Procedures XR LUMBAR LIMITED 2V AP/LAT RADEX SPINE LUMBOSACRAL 2/3 VIEWS Singh Morgan PA-C [address] [place] [address] Xr Imaging [id number] Referral ID Status Reason Start Date Expiration Date Visits Requested Visits Authorized [id number] Pending Review Auto-Generat ed Referral 01/19/2024 1 1 [facility] for referral (narrative)* Diagnostic Procedure Only (Routine) - Pending Review Specialty Diagnoses / Procedures Referred By Contac t Referred To Contact XR IMAGING Diagnoses Radiculopathy, lumbar region Procedures XR LUMBAR LIMITED 2V AP/LAT RADEX SPINE LUMBOSACRAL 2/[place] [address] [place] [address] Xr Imaging [id number] Referral ID Status Reason Start Date Expiration Date Visits Requested Visits Authorized [id number] Pending Review Auto-Generat ed Referral 05/08/2023 06/06/2024 1 1 [facility] for visit Narrative* Auth/Cert Specialty Diagnoses / Procedures Referred By Contac t Referred To Contact Diagnoses Morbid obesity (HCC) Type II diabetes circulatory disorder causing erectile dysfunction (HCC) Hypertension MORBID OBESITY, TYPE II DIABETES, HYPERTENSION Procedures MS LAP, JUAN RESTRICT PROC, LONGITUDINAL GASTRECTOMY XI ROBOTIC LAPOROSCOPIC GASTRECTOMY SLEEVE, LIVER BIOPSY, EGD- GI SCHEDULED Octavio Mcclellan, [address] [facility] [address] [place] [address] [employer] [address] [place] [address] Referral ID Status Reason Start Date Expiration Date Visits Re quested Visits Authorized 1 1 [facility] Phone: Advance Directives No Advanced Directives Records FoundDocuments on File Type Date Recorded Patient Outside Sales Consultant Expl anation Advance Directives and Living Will Power of Oxyacetylene Torch Operator Advance Directive Response Recorded Date/ Time Advance Directives No September 16 2:32pm Documents on File Type Date Recorded Patient Outside Sales Consultant Expl anation ACP-Advance Directive ACP-Power of Oxyacetylene Torch Operator Documents on File Type Date Recorded Patient Outside Sales Consultant Expl anation ACP-Advance Directive ACP-Power of Oxyacetylene Torch Operator Latest Code Status on File Code Status [...] Fluid retention in legs Alexandro Muhammad MD [address] [place] [address] Maite John MD [address] [place] [address] Scheduling Instructions . Specialty Diagnoses / Procedures Referred By Enoch luna Referred To Contact [facility] Diagnoses Lumbar adjacent segment disease with spondylolisthesis Procedures CONSULT TO [facility] ([facility] PAIN) OFFICE/OUTPATIENT NEW HIGH MDM 60-[place] [address] [place] [address] Referral ID Status Reason Start Date Expiration Date Visits Requested Visits Authorized [id number] Pending Review PCP Requested Referral 11/05/2022 11/05/2023 1 1 Specialty Diagnoses / Procedures Referred By Enoch luna Referred To Contact [facility] Diagnoses Lumbar adjacent segment disease with spondylolisthesis Procedures CONSULT TO PHYSICAL THERAPY PHYSICAL THERAPY EVALUATION HIGH COMPLEX 45 MINS Riddhi Goss, TRUCK SPOTTER.SUPERVISOR CURING ROOM [address] [place] [address] [facility] [address] [place] [address] Referral ID Status Reason Start Date Expiration Date Visits Requested Visits Authorized [id number] Pending Review Auto-Generat ed Referral 3 02/07/2024 [...] has been treated in the past by prop maker as well as his PCP. They contribute [...] file Gets together: Not on file Attends lutheran service: Not on file Active member of [...] 01/08/2020 2:19 PM Patient: Sukhdeep Simental MR#: [id number] : 1965 Age: 54 y.o. 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 [...] []Chair,[]cane, []bracing Are you followed by a vacuum system tester? [] [x] Name: Are you followed by [...] kidney disease) stage 3, GFR 30-59 ml/min [id number] Hyperuricemia Microscopic hematuria Nephrolithiasis Secondary hyperparathyroidism Type 2 diabetes mellitus with diabetic chronic kidney disease Discharge Instructions * Attachments The following attachments cannot be sent through Care Everywhere. * Back Pain (Micronesian) documented in this encounter Additional Source Comments (unrecognized sect ion and content) No Status Records FoundNo Status Records FoundNo Status Records FoundNo Status Records FoundNo Status Records FoundNo Status Records FoundNo Status Records FoundNo Status Records FoundNo Status Records FoundNo Status Records FoundNo Status Records FoundNo Status Records Found INFORMATION SOURCE (unrecogn ized section and content) DATE CREATED AUTHOR 04/18/2019 [facility] DATE CREATED AUTHOR AUTHOR'S ORGANIZ ATION 06/10/2019 [facility] DATE CREATED AUTHOR AUTHOR'S ORGANIZ ATION 07/21/2021 [facility] DATE CREATED AUTHOR AUTHOR'S ORGANIZ ATION 10/22/2021 [facility] DATE CREATED AUTHOR AUTHOR'S ORGANIZ ATION 01/23/2022 [facility] DATE CREATED AUTHOR AUTHOR'S ORGANIZ ATION 08/04/2022 [facility] DATE CREATED AUTHOR AUTHOR'S ORGANIZ ATION 12/12/2022 [facility] DATE CREATED AUTHOR AUTHOR'S ORGANIZ ATION 07/27/2023 [facility] DATE CREATED AUTHOR AUTHOR'S ORGANIZ ATION 02/16/2024 [facility] DATE CREATED AUTHOR AUTHOR'S ORGANIZ ATION 06/19/2024 [facility] DATE CREATED AUTHOR AUTHOR'S ORGANIZ ATION 06/30/2024 [facility] DATE CREATED AUTHOR AUTHOR'S ORGANIZ ATION 11/27/2024 [facility] Reason for Visit (unrecogniz ed section and content) Status Reason Specialty Diagnoses / Procedures Referred By Contact Referred To Contact Pending Review Diagnoses Hx of total knee arthroplasty, right Procedures XR BONE LENGTH STUDY Alexandro Muhammad MD [address] [place] [address] Reason Comments Pain Status Reason Specialty Diagnoses / Procedures Referred By Contact Referred To Contact Closed Cardiovascular Medicine Diagnoses Localized edema Procedures ECHOCARDIOGRAM MS ECHO HEART XTHORACIC,COMPLETE W DOPPLER Suzanne Pruett MD [address] [place] [address] Horace Buc Echocardiograph y [address] [place] [address] Reason Comments Back Pain Lower back pain s/p slip on ice Buttocks Pain Rt buttocks pain Reason Comments New Patient Lumbar spine Specialty Diagnoses / Procedures Referred By Enoch luna Referred To Contact Neurosurgery / NEUROSURGERY Diagnoses lumbar spine [facility] records requested Procedures REFERRAL TO [facility] FINANCIAL COUNSELOR NEW SPINE SURGICAL TRIAGE Jason Miller [address] [place] [address] [place] [address] [place] [address] Referral ID Status Reason Start Date Expiration Date V isits Requested Visits Authorized [id number] Outside PCP 11/05/2022 01/04/2023 99 99 Reason [...] POST OP NEUS/NRES Self Xi Schrader PA-C [address] [place] [address] Referral ID Status Reason Start Date Expiration Date Visits Re quested Visits Authorized [id number] Closed 12/20/2022 02/24/2023 1 1 Reason Comments Received Outside Medical Records [facility] Reason Comments Follow Up Specialty Diagnoses / Procedures Referred By Contac t Referred To Contact Neurosurgery / NEUROSURGERY Diagnoses Follow-up exam Follow Up Procedures OFFICE/OUTPATIENT ESTABLISHED MOD MDM 30-39 MIN EST NI PATIENT Self Xi Schrader PA-C [address] [place] [id number] Referral ID Status Reason Start Date Expiration Date Visits Re quested Visits Authorized [id number] Closed 02/07/2023 02/07/2023 1 1 Reason Comments PT Certification Specialty Diagnoses / Procedures Referred By Contac t Referred To Contact Neurosurgery / NEUROSURGERY Diagnoses Lumbar adjacent segment disease with spondylolisthesis discuss imaging and [facility] requirements Procedures PHYS/QHP TELEPHONE EVALUATION 5-10 MIN [place] [address] [place] [place] [id number] Referral ID Status Reason Start Date Expiration Date V isits Requested Visits Authorized [id number] Denied Patient Cleared - Admin/Chairm an/Director advise [...] November 07, 2023 End: November 07, 2023 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 Start Date End Date Blayne Isabel MD [address] [place] [address] PCP - General Family Medicine 04/11/19 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 Start Date End Date Blayne Isabel MD [address] [place] [address] PCP - General Family Medicine 04/11/19 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 Start Date End Date Blayne Isabel MD [address] [place] [address] PCP - General Family Medicine 04/11/19 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 Start Date End Date Blayne Isabel MD [address] [place] [address] PCP - General Family Medicine 04/11/19 Team Status: Inactive Member Role Status Dates STEPH Sarkar Attending Provider Active Team Status: Inactive Member Role Status Dates PHYSICIAN NO FAMILY Primary Care Provider Active Gianni Nelson DO Attending Provider Active Team Status: Inactive Member Role Status Dates STEPH Sarkar Attending Provider Active PHYSICIAN NO FAMILY Primary Care Provider Active 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 Start Date End Date Blayne Isabel MD PCP - General Family Medicine 11/06/13 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 Start Date End Date Blayne Isabel MD PCP - General Family Medicine 11/06/13 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 Start Date End Date Blayne Isabel MD PCP - General Family Medicine 11/06/13 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 Start Date End Date Blayne Isabel MD PCP - General Family Medicine 11/06/13 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 Start Date End Date Blayne Isabel MD PCP - General Family Medicine 11/06/13 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 Start Date End Date Blayne Isabel MD PCP - General Family Medicine 11/06/13 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 Start Date End Date Blayne Isabel MD PCP - General Family Medicine 11/06/13 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 Start Date End Date Blayne Isabel MD PCP - General Family Medicine 11/06/13 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 Start Date End Date Blayne Isabel MD PCP - General Family Medicine 11/06/13 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 Start Date End Date Blayne Isabel MD PCP - General Family Medicine 11/06/13 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 Start Date End Date Blayne Isabel MD PCP - General Family Medicine 11/06/13 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 Start Date End Date Blayne Isabel MD PCP - General Family Medicine 11/06/13 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 Start Date End Date Blayne Isabel MD PCP - General Family Medicine 10/08/18 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 Start Date End Date Blayne Isabel MD PCP - General Family Medicine 10/08/18 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 Start Date End Date Blayne Isabel MD [address] [place] [address] PCP - General [facility] 10/08/18 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 [place] [address] [place], [place] [id number] PCP - General Family Medicine 10/08/18 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 surgical services.) sodium chloride flush 0.9 % injection 5-40 [...] or prosecute any alcohol or drug abuse patient.[facility] RehabilitationIn the event this information is protected by the Federal Confidentiality of Alcohol and Drug Abuse Patient Records regulations: The Federal rules restrict any use of the information to criminally investigate or prosecute any alcohol or drug abuse patient.[facility] RehabilitationIn the event this information is protected by the Federal Confidentiality of Alcohol and Drug Abuse Patient Records regulations: The Federal rules restrict any use of the information to criminally investigate or prosecute any alcohol or drug abuse patient.[facility] RehabilitationIn the event this information is protected by the Federal Confidentiality of Alcohol and Drug Abuse Patient Records regulations: The Federal rules restrict any use of the information to criminally investigate or prosecute any alcohol or drug abuse patient.[facility] RehabilitationIn the event this information is protected by the Federal Confidentiality of Alcohol and Drug Abuse Patient Records regulations: The Federal rules restrict any use of the information to criminally investigate or prosecute any alcohol or drug abuse patient.[facility] RehabilitationIn the event this information is protected by the Federal Confidentiality of Alcohol and Drug Abuse Patient Records regulations: The Federal rules restrict any use of the information to criminally investigate or prosecute any alcohol or drug abuse patient.[facility] RehabilitationIn the event this information is protected by the Federal Confidentiality of Alcohol and Drug Abuse Patient Records regulations: The Federal rules restrict any use of the information to criminally investigate or prosecute any alcohol or drug abuse patient.[facility] RehabilitationIn the event this information is protected by the Federal Confidentiality of Alcohol and Drug Abuse Patient Records regulations: The Federal rules restrict any use of the information to criminally investigate or prosecute any alcohol or drug abuse patient.[facility] RehabilitationIn the event this information is protected by the Federal Confidentiality of Alcohol and Drug Abuse Patient Records regulations: The Federal rules restrict any use of the information to criminally investigate or prosecute any alcohol or drug abuse patient.[facility] RehabilitationIn the event this information is protected by the Federal Confidentiality of Alcohol and Drug Abuse Patient Records regulations: The Federal rules restrict any use of the information to criminally investigate or prosecute any alcohol or drug abuse patient.[facility] RehabilitationIn the event this information is protected by the Federal Confidentiality of Alcohol and Drug Abuse Patient Records regulations: The Federal rules restrict any use of the information to criminally investigate or prosecute any alcohol or drug abuse patient.[facility] RehabilitationIn the event this information is protected by the Federal Confidentiality of Alcohol and Drug Abuse Patient Records regulations: The Federal rules restrict any use of the information to criminally investigate or prosecute any alcohol or drug abuse patient.[facility] RehabilitationIn the event this information is protected by the Federal Confidentiality of Alcohol and Drug Abuse Patient Records regulations: The Federal rules restrict any use of the information to criminally investigate or prosecute any alcohol or drug abuse patient.[facility] RehabilitationIn the event this information is protected by the Federal Confidentiality of Alcohol and Drug Abuse Patient Records regulations: The Federal rules restrict any use of the information to criminally investigate or prosecute any alcohol or drug abuse patient.[facility] RehabilitationIn the event this information is protected by the Federal Confidentiality of Alcohol and Drug Abuse Patient Records regulations: The Federal rules restrict any use of the information to criminally investigate or prosecute any alcohol or drug abuse patient.[facility] RehabilitationIn the event this information is protected by the Federal Confidentiality of Alcohol and Drug Abuse Patient Records regulations: The Federal rules restrict any use of the information to criminally investigate or prosecute any alcohol or drug abuse patient.[facility] RehabilitationIn the event this information is protected by the Federal Confidentiality of Alcohol and Drug Abuse Patient Records regulations: The Federal rules restrict any use of the information to criminally investigate or prosecute any alcohol or drug abuse patient.[facility] RehabilitationIn the event this information is protected by the Federal Confidentiality of Alcohol and Drug Abuse Patient Records regulations: The Federal rules restrict any use of the information to criminally investigate or prosecute any alcohol or drug abuse patient.[facility] RehabilitationIn the event this information is protected by the Federal Confidentiality of Alcohol and Drug Abuse Patient Records regulations: The Federal rules restrict any use of the information to criminally investigate or prosecute any alcohol or drug abuse patient.[facility] FOR RECORDS PERTAINING TO PATIENTS WHO ARE [...] BE BASED ON THE PRIMARY CLINICAL RECORDS. [facility]. provides no warranty or guarantee of the accuracy or completeness of information in this document.
[2024-12-04 09:25] LABS: Glucose Urine UA NEGATIVE (NEGATIVE)
[2024-12-04 09:25] LABS: Hematocrit 44.0 % (42.0-54.0); Hemoglobin 15.1 g/dL (14.0-18.0); Immature Granulocytes Abs Auto 0.04 10^3/uL (0.00-0.03); Immature Granulocytes Pct Auto 0.6 % (0.0-0.5); Lymphocytes Absolute Auto 1.7 10^3/uL (1.2-3.8); Mean Corpuscular HGB Conc 34.3 g/dL (29.9-35.2); Mean Corpuscular Hemoglobin 31.5 pg (25.9-34.0); Mean Corpuscular Volume 91.9 fL (80.0-94.0); Platelet Count 246 10^3/uL (150-450); Red Blood Count 4.79 10^6/uL (4.70-6.10); White Blood Count 6.2 10^3/uL (4.0-11.0)
[2024-12-04 11:55] LABS: Cast Seen? NONE SEEN #/LPF (NONE SEEN); Crystals Seen? None Seen #/HPF (None Seen)
[2024-12-04 11:56] LABS: Urine Culture Indicated ALREADY ORDERED
[2024-12-04 16:01] LABS: Alanine Aminotransferase 37 U/L (16-63); Albumin Globulin Ratio 1.0; Albumin Level 3.7 g/dL (3.4-5.0); Alkaline Phosphatase 62 U/L (46-116); Anion Gap 14.8; Aspartate Amino Transferase 28 U/L (15-37); Blood Urea Nitrogen 14.0 mg/dL (7.0-18.0); Calcium 8.8 mg/dL (8.5-10.1); Carbon Dioxide 25.7 mmol/L (21.0-32.0); Chloride 106 mmol/L (98-107); Cholesterol 132 mg/dL (<=200); Estimated GFR (African America >60 (>=60 mL/min/1.73m^2); Estimated GFR (Non-African Ame 55 (>=60 mL/min/1.73m^2); Free T3 2.93 pg/mL (2.18-3.98); Globulin 3.7 g/dL; Glucose 98 mg/dL (74-106); HDL Cholesterol 47 mg/dL (40-60); Potassium 3.5 mmol/L (3.5-5.1); Sodium 143 mmol/L (136-145); Thyroid Stimulating Hormone 0.793 uIU/mL (0.358-3.740); Total Protein 7.4 g/dL (6.4-8.2); Triglycerides 98 mg/dL (<=150); VLDL CHOLESTEROL 19.6 mg/dL
== END 2024-12-04 08:44 | disposition home or self-care (01) ==
LOC: LAB 08:43
PROVIDERS: PCP Family Medicine; Visit Provider Family Medicine
DX: Z00.00 Encounter for general adult medical examination without abnormal findings (principal); R06.02 Shortness of breath; Z12.5 Encounter for screening for malignant neoplasm of prostate; N39.0 Urinary tract infection, site not specified
CPT/HCPCS: 36415; 71275; 80053; 80061; 81001; 83036; 83525; 84436; 84443; 84481; 85025; 87086; G0103; Q9966

== ENCOUNTER 2025-02-01 16:07 | Outpatient (OUT) | payer OTHER, MEDICARE, SELFPAY ==
--- OUTSIDE RECORDS SUMMARY | 2025-02-01 16:16 | XMS_ITS | CCD ---
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 Name Role Phone Derick Isabel Primary Care Provider SUZANNE ACEVEDO Attending Unavailable DERICK ISABEL Primary Care Unavailable ARSENIO BHATTI Referring Unavailable DERICK ISABEL Primary Care Unavailable ARSENIO BHATTI Referring Unavailable DERICK ISABEL Primary Care Unavailable ROSE SOTELO Attending Unavailable DERICK ISABEL Primary Care Unavailable DERICK ISABEL Consulting Unavailable Derick Isabel Primary Care Provider Derick Isabel Primary Care Provider [phone] Octavio Becker Attending Provider Derick Isabel MD Primary Care Provider OCTAVIO MCCLELLAN Referring Unavailable DREICK ISABEL Primary Care Unavailable OCTAVIO MCCLELLAN Referring Unavailable DERICK ISABEL Primary Care Unavailable OCTAVIO MCCLELLAN Referring Unavailable DERICK ISABEL Primary Care Unavailable OCTAVIO MCCLELLAN Admitting Unavailable OCTAVIO MCCLELLAN Attending Unavailable DERICK ISABEL Primary Care Unavailable AGUSTIN FISCHER Consulting Unavailable LEISA PRERY Referring Unavailable DERICK ISABEL Primary Care Unavailable DORIE RUSH Consulting Unavailable SAI OWENS Attending Unavailable SAI OWENS Admitting Unavailable UNKNOWN, PHYSICIAN Referring Unavailable UNKNOWN, PHYSICIAN Primary Care Unavailable PAYTON HELM Attending Unavailable PAYTON HELM Admitting Unavailable Oumou Weinstein Unavailable STEPH Lowry Attending Provider Estephanie Lowry Unavailable STEPH Lowry Attending Provider NO FAMILY, PHYSICIAN Primary Care Provider Unava ilDO Gianni Balderas Attending Provider Derick Isabel Primary Care Physician LIDIA ., DR RAI Consulting Unavailable MURILLO ., DR RAI Admitting Unavailable MURILLO ., DR RAI Attending Unavailable HOY ., DR CISNEROS Primary Care Unavailable BREECITLALI Consulting Unavailable HOY ., DR CISNEROS Attending [...] Primary Care Unavailable HOY ., DR CISNEROS Admcleopatra Unavailable CORINNA, OUMOU Attending Unavailable CORINNA, OUMOU [...] PERRY Admitting Unavailable LEISA PERRY Attending Unavailable SCARLET NEELY Consulting Unavailfredis ISABEL ., DR CISNEROS Primary Care Unavailable MISC, DR GARCIA Consulting Unavailable MISC, DR GARCIA Admitting Unavailable MISC, DR GARCIA Attending Unavailable HOY ., DR CISNEROS Primary Care Unavailable Derick Isabel MD Primary Care Provider [phone] EDD MATHEW Attending Unavailable EDD MATHEW Admitting Unavailable DERICK ISABEL Primary Care Unavailable LULU OVIEDO Consulting UnavailDerick Poole MD Primary Care Provider [phone] DERICK ISABEL Primary Care Unavailable VARGAS MATHEWAITH Referring Unavailable MAITE GALLOWAY Referring Unavailable DERICK ISABEL M Primary Care Unavailable HOChad, DERICK M Primary Care Unavailable MAITE GALLOWAY Referring Unavailable Derick Isabel MD Primary Care Provider [phone] AHSAN FLYNN Attending Unavailable HOY, DERICK M Referring Unavailable HOY, DERICK M Primary Care Unavailable AHSAN FLYNN Attending Unavailable DERICK ISABEL M Referring Unavailable HOY, DERICK M Primary Care Unavailable AHSAN FLYNN Attending Unavailable DERICK ISABEL M Referring Unavailable DERICK ISABEL M Primary Care Unavailable Derick Isabel MD Primary Care Provider [phone] PAYTON HELM Referring Unavailable PAYTON HELM Attending Unavailable PAYTON HELM Attending Unavailable Yarely [place] Attending Unavailable Cecelia MURILLO Attending Unavailable Cecelia Fernandez Referring Unavailable Cecelia Fernandez Attending Unavailable Cecelia MURILLO Attending Unavailable Cecelia MURILLO Attending Unavailable Cecelia MURILLO Attending Unavailable NO FAMILY, PHYSICIAN Primary Care Provider Unava ilOumou Marcus MD Attending Provider Derick Isabel MD Attending Provider [phone] Derick Isabel Attending Unavailable Derick Isabel Admitting Unavailable Unavailable Unavailable Unavailable Allergies Allergy ClassificationReported Allergen(s)Allergy TypeDate of OnsetReaction(s) Facility (17 sources)Povidone-Iodine; Translations: [povidone iodine topical]Drug Allergy 48-90-7061NmolRpwrtSelect [facility] (12 sources)Povidone-Iodine; Translations: [POVIDONE-IODINE]Drug Allergy 81-75-0343PwzrZbbimysgmVan [facility] (10 sources)soap; Translations: [soap]Allergy to eldxmtfwz22-93-7357[facility] (14 sources)Chlorhexidine; Translations: [CHLORHEXIDINE]Drug Kafpyrf09-80-6113 [facility] (14 sources)Iodine; Translations: [IODINE]Drug Qocmsqx83-32-0916SkehVdaft [employer]if[employer] Work Phone: (16 sources)Loratadine; Translations: [loratadine]Drug Zqnarea68-15-4234jxnd [facility] (1 source)ChlorhexidineDrug AllergyThe [facility] (1 source)Adhesive bandageDrug allergyEruption of skin (disorder)[facility] (1 source)Povidone-Iodine; Translations: [Betadine]Drug AllergyC[facility] Medications Current Medications MedicationDrug Class(es)DatesSig (Normalized)Sig (Original)acetaminophen 500 mg oral tablet (14 sources)Start: 01-02-2022 End: 96-47-6180mzyj 2 tablets by mouth every eight hoursacetaminophen (TYLENOL EXTRA STRENGTH) 500 mg tablet TAKE TWO TABLETS BY MOUTH EVERY 8 HOURS 01/02/2022 ActiveComment on above:Take 2 tablets by mouth every 8 hours.acetaminophen 325 mg / HYDROcodone bitartrate 5 mg oral tablet (20 sources)Opioid AgonistStart: 72-78-5672hrfd 1 tablet by mouth four times daily as neededHYDROcodone-acetaminophen (NORCO) 5-325 mg per tablet Take 1 tablet by mouth 4 (four) times a day as needed. 11/10/2021 ActiveStart: 05-05-2020 End: 41-54-5082MKXSYbiuhbg-acetaminophen (NORCO) 5-325 MG per tablet Hydrocodone-Acetaminophen Active 1 TAB PO As Directed May 05, 2020 11:40am 0 05/05/2020 05/08/2021 Discontinued (LIST CLEANUP)Start: 05-05-2020 End: 86-91-0161Nqqupqxxduv-Acetaminophen 5-325 mg tablet Discontinued 1 TAB PO As Directed as needed for Pain May 05, 2020 1:00am November 07, 2023 11:13amStart: 04-11-2019 End: 98-29-2102yvgf 1 tablet by mouth every four hours as needed for pain, then take 1 tablet by mouth as needed for painHYDROcodone-acetaminophen (NORCO) 5-325 MG per tablet Indications: Acute bilateral low back pain with right-sided sciatica , Traumatic buttock pain Take 1 tablet by mouth every 4 hours as needed for Pain for up to 3 days. Intended supply: 3 days. Take lowest dose possible to manage pain 15 tablet 04/14/2019 Activetake 1 tablet by mouth every six hoursHYDROcodone-Acetaminophen 5-325 MG 1 tablet as needed Orally every 6 hrs Activeacetaminophen 325 mg / oxyCODONE hydrochloride 10 mg oral tablet (18 sources)Opioid AgonistStart: 07-54-4690fzyl 1 tablet by mouth every six hours as neededStart: 05-25-2021 End: 90-80-0081rzbZJPXCF-acetaminophen (PERCOCET) 5-325 MG per tablet Indications: S/P laparoscopic sleeve gastrectomy Take 1 tablet by mouth every 6 hours as needed for Pain for up to 7 days. Intended supply: 7 days. Take lowest dose possible to manage pain 28 tablet 0 05/25/2021 06/01/2021 ActiveStart: 55-80-1020sgqDHAKXA-acetaminophen (PERCOCET) 5-325 MG per tablet 1 tabletStart: 70-80-1297cfft 1 tablet by mouth every four hours as neededoxyCODONE- acetaminophen (PERCOCET) 5-325 mg tablet Take 1 tablet by mouth every 4 hours as needed. 20 tablet 0 11/06/2013 ActiveComment on above:Take 1 tablet by mouth every 4 hours as needed.[id number] 200 actuat albuterol 0.09 mg/actuat metered dose inhaler (11 sources)beta2-Adrenergic AgonistStart: 90-79-8245xnyizfykz (PROVENTIL HFA;VENTOLIN HFA) 90 mcg/actuation inhaler INHALE 2 PUFFS BY MOUTH FOUR TIMES D AILY NEEDED (practice 2 (TWO) puffs 30 MINUTES prior) 01/07/2021 Active ALBUTEROL SULFATE HFA IN Inhale into the lungs as needed 0 Activealbuterol 0.833 mg/ml / ipratropium bromide 0.167 mg/ml inhalation solution (1 source)Anticholinergic, beta2-Adrenergic AgonistStart: 02-18-6259acljyitsmeh- albuterol (DUONEB) nebulizer solution 1 ampuleamLODIPine 10 mg oral tablet (13 sources)Dihydropyridine Calcium Channel BlockerStart: 91-52-1027wapy 1 tablet by mouth once dailyamLODIPine 10 MG tablet Take 10 mg by mouth daily. 0 12/12/2019 ActiveStart: 96-98-2521zvmw 5 mg by mouth once dailyamLODIPine 10 MG tablet Take 5 mg by mouth daily. 0 12/12/2019 ActiveComment on above:Take 10 mg by mouth once daily.apixaban 5 mg oral tablet (9 sources)Factor Xa Inhibitortake 2 tablets by mouth twice daily, then take 1 tablet by mouth twice dailyapixaban (ELIQUIS) 5 mg tablet Eliquis 5 mg tablet TAKE 2 TABLETS BY MOUTH TWICE DAILY FOR 3 DAYS, then TAKE 1 TABLET BY MOUTH TWICE DAILY Active End: 75-08-9503Jvmevomb (ELIQUIS PO) Take by mouth 0 05/08/2021 Discontinued (LIST CLEANUP)aprepitant 40 mg oral capsule (1 source)Substance P/Neurokinin-1 Receptor AntagonistStart: 05-25-2021 aprepitant (EMEND) capsule 80 mgatropine sulfate 0.025 mg / diphenoxylate hydrochloride 2.5 mg oral tablet (8 sources)Anticholinergic, Cholinergic Muscarinic Antagonist, Antidiarrheal Start: 93-61-2258grqj 1 tablet by mouth three times dailydiphenoxylate-atropine (LOMOTIL) 2.5-0.025 mg per tablet Take 1 tablet by mouth 3 (three) times a day. 0 09/12/2018 Pqpbqj99 actuat budesonide 0.16 mg/actuat / formoterol fumarate 0.0045 mg/actuat metered dose inhaler (8 sources)Corticosteroid, beta2-Adrenergic AgonistStart: 24-78-5567hvbs 2 puff(s) by inhalation twice dailySYMBICORT 160-4.5 mcg/actuation inhaler Inhale 2 puffs 2 (two) times a day. 01/01/2021 Activebumetanide 1 mg oral tablet (20 sources)Loop DiureticStart: 77-11-5679efqs 1 tablet by mouth once daily Comment on above:Take 1 tablet by mouth once daily.cefuroxime 250 mg oral tablet (1 source)Cephalosporin AntibacterialStart: 95-14-9614ewyslzhfoo 250 mg Tab 250 mg = 1 tab(s), Refills(s) 0 Start Date: 11/19/24 Status: Ordered Repeat number: 1 cholecalciferol 0.125 mg oral tablet (4 sources)Vitamin Dtake 1 tablet by mouth in the morningcholecalciferol, vitamin D3, 5,000 units tablet Take 1 tablet (5,000 Units total) by mouth in the morning. Activecyclobenzaprine hydrochloride 10 mg oral tablet (9 sources)Muscle RelaxantStart: 86-81-4733fymdxmwvgosbjrv (FLEXERIL) tablet 10 mgStart: 45-74-0111ciwr 2 tablets by mouth once dailycyclobenzaprine (FLEXERIL) 10 mg tablet Take 20 mg by mouth nightly. 11 09/29/2018 Activediclofenac sodium 75 mg delayed release oral tablet (8 sources)Nonsteroidal Anti-inflammatory DrugStart: 00-91-7997bggp 1 tablet by mouth in the morningdiclofenac (VOLTAREN) 75 mg EC tablet Take 75 mg by mouth in the morning and 75 mg before bedtime. 11 09/09/2018 Activedocusate sodium 100 mg oral capsule (6 sources)Start: 12-11-2022 End: 10-95-3061ywwv 1 capsule by mouth twice dailydocusate sodium (COLACE) 100 mg capsule Take 1 capsule by mouth two times a day. 60 capsule 0 12/11/2022 01/10/2023 ActiveComment on above:Take 1 capsule by mouth two times a day. doxazosin 4 mg oral tablet (20 sources)alpha-Adrenergic BlockerStart: 79-67-9284lgar 1 tablet by mouth once dailydoxazosin 4 mg Tab 4 mg = 1 tab(s), Oral, Daily, Refills(s) 0 Start Date: 03/19/22 Status: Ordered Repeat number: 1Start: 05-05-2020 End: 00-83-6278covm 1 tablet by mouth twice dailyComment on above:Take 4 mg by mouth.doxepin hydrochloride 10 mg oral capsule (14 sources)Tricyclic AntidepressantStart: 99-58-3530hteu 1 capsule by mouth once dailydoxycycline hyclate 100 mg oral capsule (10 sources)Tetracycline-class Drugtake 1 capsule by mouth in the morning, then take 1 capsule by mouth at bedtimedoxycycline (VIBRAMYCIN) 100 mg capsule Take 1 capsule (100 mg total) by mouth in the morning and 1capsule (100 mg total) before bedtime. Active1 ml enoxaparin sodium 100 mg/ml prefilled syringe (3 sources)Low Molecular Weight HeparinStart: 05-25-2021 End: 36-55-4490rivbzcuauy (LOVENOX) 100 MG/ML injection Inject 1 mL into the skin 2 times daily for 10 days 20 mL 0 05/26/2021 06/05/2021 ActiveStart: 54-23-8561jikmctfjpb (LOVENOX) injection 60 mgergocalciferol 1.25 mg oral capsule (10 sources)Provitamin D2 CompoundStart: 64-88-0655btbvkkvexnwebu (DRISDOL) 1,250 mcg (50,000 unit) capsule Take 50,000 Units by mouth. 01/05/2021 Active Start: 95-34-3366wdwg 1 capsule by mouth every weekvitamin D (ERGOCALCIFEROL) 1.25 MG (59057 UT) CAPS capsule Indications: Vitamin D deficiency Take 1capsule by mouth once a week for 8 doses 8 capsule 0 01/05/2021 Activefamotidine 20 mg oral tablet (18 sources)Histamine-2 Receptor AntagonistStart: 87-01-1531qsrt 1 tablet by mouth once dailyfamotidine (PEPCID) 20 mg tablet Take 20 mg by mouth nightly. 11/07/2021 ActiveStart: 78-31-3214ocmiulktmv (PEPCID) tablet 20 mgFeroSul 325 mg oral tablet (6 sources)Start: 47-31-3803opja 1 tablet by mouth twice dailyFeroSul 325 mg oral tablet 325 mg = 1 tab(s), Oral, BID, Refills(s) 0 Start Date: 03/19/22 Status: Ordered Repeat number: 1Start: 75-10-3070mvaf 1 tablet by mouth twice dailyFeroSul 325 mg oral tablet 325 mg = 1 tab(s), Oral, BID, Refills(s) 0 Start Date: 03/19/22 Status: OrderedStart: 54-92-3919YkyjWhx 325 mg oral tablet Refills(s) 0 Start Date: 03/19/22 Status: Orderedferrous sulfate 325 mg oral tablet (20 sources)Start: 39-07-5811azme 1 tablet by mouth twice dailyStart: 11-07-2023 take 1 tablet by mouth twice dailyFerrous Sulfate Active 1 TAB PO Twice daily November 07, 2023 12:00am FreeTextSi tablet Orally twice a day; Note: Source Status: Taking; Provider: Corinna Coello ( )Start: 10-31-2022 take 1 tablet by mouth every twelve hoursFEROSUL 325 mg (65 mg iron) tablet Take 1 tablet by mouth every 12 (twelve) hours. 10/31/2022 ActiveStart: 11-07-2021 take 1 tablet by mouth in the morning, then take 1 tablet by mouth at bedtime FeroSuL 325 mg (65 mg iron) tablet Take 1 tablet (325 mg total) by mouth in the morning and 1 tablet (325 mg total) before bedtime. 11/07/2021 Activetake 1 tablet by mouth twice dailyFerrous Sulfate 325 (65 Fe) MG 1 tablet Orally twice a day ActiveComment on above:Take 1 tablet by mouth every 12 (twelve) hours. gabapentin 100 mg oral capsule (1 source)Anti-epileptic AgentStart: 19-35-9805jjabslrmbu (NEURONTIN) capsule 100 mghydroCHLOROthiazide 25 mg oral tablet (3 sources)Thiazide DiureticStart: 45-38-9550tvtf 1 tablet by mouth once daily hydroCHLOROthiazide 25 MG tablet Take 1 tablet by mouth daily. 30 tablet 3 02/02/2020 ActiveHYDROCHLOROTHIAZIDE ORAL Take by mouth. 0 ActiveComment on above:Take by mouth.1 ml HYDROmorphone hydrochloride 1 mg/ml cartridge (2 sources)Opioid AgonistStart: 68-09-3436VXPJWdfdjtcqo (DILAUDID) injection 1 mgStart: 04-11-2019 End: 72-84-2205KLLYHpqgepfhw (DILAUDID) injection 1 mghydrOXYzine hydrochloride 25 mg oral tablet (17 sources)AntihistamineStart: 33-91-1308rnzm 1 tablet by mouth four times daily as neededhydrOXYzine HCl (ATARAX) 25 mg tablet TAKE 1 TABLET BY MOUTH FOUR TIMES DAILY NEEDED MUST LAST 30 DAYS 11/06/2022 ActiveComment on above:TAKE 1 TABLET BY MOUTH FOUR TIMES DAILY NEEDED MUST LAST 30 DAYSindomethacin 50 mg oral capsule (13 sources)Nonsteroidal Anti-inflammatory Drugindomethacin (INDOCIN) 50 mg capsule Take 50 mg by mouth in the morning and 50 mg at noon and 50 mgin the evening. Take with meals. Activeindomethacin 50 MG capsule Every 6 hours. 0 Activeirbesartan 300 mg oral tablet (20 sources)Angiotensin 2 Receptor BlockerStart: 36-55-5852bmcr 1 tablet by mouth once dailyStart: 83-98-6762ilnv 150 mg by mouth once dailyIrbesartan Active 150 MG PO Daily November 07, 2023 12:00amStart: 79-12-4260evve 0.5 tablet by mouth once dailyirbesartan (AVAPRO) 300 mg tablet 1/2 tablet Orally Once a day for 60 days 02/15/2020 ActiveStart: 02-15-2020 End: 95-34-0399dmxh 1 tablet by mouth once dailyAvapro 300 mg Tab 300 mg = 1 tab(s), Oral, Daily, Refills(s) 0, High blood pressure Start Date: 02/15/20 Status: Ordered Repeat number: 1take 1 tablet by mouth every twenty-four hours Irbesartan 150 MG 1 tablet Orally Once a day ActiveComment on above:1/2 tablet Orally Once a day for 60 days24 hr levomilnacipran 40 mg extended release oral capsule (8 sources)Serotonin and Norepinephrine Reuptake Inhibitortake 1 capsule by mouth every twenty-four hours in the morninglevomilnacipran (FETZIMA) 40 mg capsule,extended release 24 hr Take 40 mg by mouth in the morning. Active LORazepam 1 mg oral tablet (15 sources)BenzodiazepineStart: 57-52-4200xrsv 1 tablet by mouth three times dailyAtivan 1 mg Tab mg tab(s), Oral, TID, Refills(s) 0 Start Date: 03/19/22 Status: Orderedtake 1 tablet by mouth every six hours as neededLORazepam (ATIVAN) 1 mg tablet Take 1 tablet (1 mg total) by mouth every 6 (six) hours as needed. ActiveLORazepam (ATIVAN) 0.5 mg tab Take by mouth three times daily as needed. 0 Activetake 1 tablet by mouth every twenty-four hoursAtivan 1 MG 1 tablet at bedtime as needed Orally Once a day Not-TakingComment on above:Take by mouth three times daily as needed.metFORMIN hydrochloride 500 mg oral tablet (8 sources)Biguanidetake 1 tablet by mouth in the morningmetFORMIN (GLUCOPHAGE) 500 mg tablet Take 1 tablet by mouth in the morning and 1 tablet before bedtime. Activemetoclopramide 10 mg oral tablet (20 sources)Dopamine-2 Receptor AntagonistStart: 79-06-5621pyyk 1 tablet by mouth twice dailymetoclopramide 10 mg Tab 10 mg = 1 tab(s), Oral, BID, Refills(s) 0 Start Date: 03/19/22 Status: Ordered Repeat number: 1Comment on above:Take 10 mg by mouth as needed.metoprolol tartrate 25 mg oral tablet (3 sources)beta-Adrenergic BlockerStart: 05-25-2021 End: 03-58-3889munm 1 tablet by mouth twice dailymetoprolol tartrate (LOPRESSOR) 25 MG tablet Take 1 tablet by mouth 2 times daily 60 tablet 0 05/25/2021 06/24/2021 ActiveStart: 05-24-2021 End: 01-71-9075trcjljpgkd (LOPRESSOR) injection 5 mgMultiple Vitamin (ONE-A-DAY MENS PO) (3 sources)Multiple Vitamin (ONE-A-DAY MENS PO) Take by mouth daily 0 Active Multivitamin, Therapeutic w/ Minerals (6 sources)Start: 22-97-4572viqx 1 tablet by mouth once dailyMultivitamin, Therapeutic w/ Minerals 1 tab(s), Oral, Daily, Prophylaxis Start Date: 02/23/20 Status: Ordered Repeat number: 1Start: 30-84-6026nwwc 1 tablet by mouth once dailyMultivitamin, Therapeutic w/ Minerals 1 tab(s), Oral, Daily, Prophylaxis Start Date: 02/23/20 Status: Orderednaloxone hydrochloride 40 mg/ml nasal spray (11 sources)Opioid AntagonistStart: 38-07-4598jenvqpda 4 mg/actuation nasal spray (NARCAN) Use 1 spray in one nostril as needed for overdose. Mayrepeat every 2 to 3 min in alternating nostrils until medical assistance is available 2 Each 0 12/20/2022 ActiveComment on above:Use 1 spray in one nostril as needed for overdose. May repeat every 2 to 3 min in alternating nostrils until medical assistance is availablenaloxone 4 mg/actuation nasal spray (NARCAN) (2 sources)Start: 60-35-5363xrvdxnqz 4 mg/actuation nasal spray (NARCAN) Use 1 spray in one nostril as needed for overdose. Mayrepeat every 2 to 3 min in alternating nostrils until medical assistance is available 2 Each 12/20/2022 ActiveStart: 70-62-2260mvxnugwl 4 mg/actuation nasal spray (NARCAN) Use 1 spray in one nostril as needed for overdose. Mayrepeat every 2 to 3 min in alternating nostrils until medical assistance is available 2 Each 0 12/20/2022 Active omeprazole 20 mg delayed release oral capsule (20 sources)Proton Pump InhibitorStart: 73-29-3270oijv 1 capsule by mouth twice dailyComment on above:Take 1 capsule by mouth twice daily.2 ml ondansetron 2 mg/ml injection (10 sources)Serotonin-3 Receptor AntagonistStart: 86-17-6237rlbfpqeeisk (ZOFRAN) injection 4 mgStart: 04-71-3019hbfhpdohyiy ODT (ZOFRAN-ODT) 4 mg disintegrating tablet Dissolve 1 tablet on tongue as needed. 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 28 tablet 0 12/20/2022 12/27/2022 ActiveStart: 12-11-2022 End: 05-86-8549ddyy 1 tablet by mouth every three hours as needed for pain oxyCODONE (ROXICODONE) 15 mg immediate release tablet Indications: Post-op pain Take 1 tablet by mouth every 3 hours as needed for pain for up to 7 days. 56 tablet 0 12/11/2022 12/18/2022 ActiveStart: 30-48-8874jkiCPWIUF 5 mg Tab Refills(s) 0 Start Date: 03/19/22 Status: OrderedComment on above:Take 1 tablet by mouth every 3 hours as needed for pain for up to 7 days.Take 1 tablet by mouth every 6 hours as needed for pain for up to 7 days.pantoprazole 40 mg delayed release oral tablet (20 sources)Proton Pump Inhibitortake 1 tablet by mouth in the morning pantoprazole (PROTONIX) 40 mg EC tablet Take 1 tablet (40 mg total) by mouth in the morning. Activetake 40 mg by mouth once dailyPantoprazole Sodium (PROTONIX PO) Take 40 mg by mouth daily 0 ActivePhenazopyridine (8 sources)Pyridium Activephentermine hydrochloride 37.5 mg oral tablet (13 sources)Sympathomimetic Amine AnorecticStart: 92-49-2002ppwd 1 tablet by mouth once dailytake 1 capsule by mouth once daily in the morningphentermine (ADIPEX-P) 37.5 MG capsule Take 37.5 mg by mouth every morning. 0 Active pioglitazone 30 mg oral tablet (20 sources)Peroxisome Proliferator Receptor alpha Agonist, Peroxisome Proliferator Receptor gamma Agonist, ThiazolidinedioneStart: 31-45-6474Ldxav: 27-74-4199nanf 15 mg by mouth once dailyPioglitazone Active 15 MG PO Daily November 07, 2023 11:13amStart: 12-12-2019 End: 47-82-0859unkh 1 tablet by mouth once dailyPioglitazone 30 mg tablet Discontinued 30 MG PO Daily May 05, 2020 1:00am November 07, 2023 11:19am take 2 tablets by mouth in the morningpioglitazone (ACTOS) 15 mg tablet Take 2 tablets (30 mg total) by mouth in the morning. ActivepredniSONE 20 mg oral tablet (2 sources)Start: 04-12-2019 End: 95-34-1673izew 2 tablets by mouth once dailypredniSONE (DELTASONE) 20 MG tablet Take 2 tablets by mouth daily for 5 days 10 tablet 0 Activepregabalin 100 mg oral capsule (9 sources)Start: 12-07-2020 End: 51-26-0884trpi 1 capsule by mouth in the morning, then take 1 capsule by mouth at bedtimepregabalin (LYRICA) 100 mg capsule Take 1 capsule (100 mg total) by mouth in the morning and 1 capsule (100 mg total) before bedtime. 12/07/2020 ActiveProbiotic Product (PROBIOTIC DAILY PO) (3 sources)Probiotic Product (PROBIOTIC DAILY PO) Take by mouth daily 0 Active promethazine hydrochloride 25 mg oral tablet (2 sources)PhenothiazineStart: 74-88-6881kjoa 1 tablet by mouth every six hours as needed for nauseapromethazine (PHENERGAN) 25 MG tablet Take 1 tablet by mouth every 6 hours as needed for Nausea 30 tablet 0 05/25/2021 ActiveStart: 37-38-3803ahkvhtsigtij (PHENERGAN) tablet 25 mgrosuvastatin calcium 5 mg oral tablet (1 source)HMG-CoA Reductase InhibitorStart: 10-76-8267oscmndpytdcz 5 mg Tab 5 mg = 1 tab(s), Refills(s) 0 Start Date: 11/19/24 Status: Ordered Repeat number: 15 ml sodium chloride 9 mg/ml injection (3 sources)Start: .9 % sodium chloride infusionStart: 05-24-2021 sodium chloride flush 0.9 % injection 5-40 mLspironolactone 100 mg oral tablet (13 sources)Aldosterone AntagonistStart: 01-01-2021 End: 03-76-0356tjdh 1 tablet by mouth in the morningspironolactone (ALDACTONE) 100 mg tablet Take 1 tablet (100 mg total) by mouth in the morning. 01/01/2021 ActiveStart: 60-89-3323tkxd 1 tablet by mouth once dailyspironolactone (ALDACTONE) 100 mg tablet Take 100 mg by mouth daily. 0 01/01/2021 Active sucralfate 1000 mg oral tablet (20 sources)Aluminum ComplexStart: 38-71-3334tcmg 1 tablet by mouth twice daily sucralfate 1 g Tab 1 gm = 1 tab(s), Oral, BID, Refills(s) 0 Start Date: 03/19/22 Status: Ordered Repeat number: 1Start: 22-23-1034tepbfmanfl 1 g Tab Refills(s) 0 Start Date: 03/19/22 Status: OrderedStart: 33-10-4403gurm 1 tablet by mouth at bedtimesucralfate (CARAFATE) 1 gram tablet Take 1 tablet (1 g total) by mouth in the morning and 1 tablet (1 g total) at noon and 1 tablet (1 g total) in the evening and 1 tablet (1 g total) before bedtime.10/08/2021 Activetamsulosin hydrochloride 0.4 mg oral capsule (20 sources)alpha-Adrenergic BlockerStart: 28-68-8205akft 1 capsule by mouth once daily at bedtimeComment on above:Take 1 capsule by mouth once daily. temazepam 15 mg oral capsule (9 sources)BenzodiazepineStart: 54-37-1535cqsx 1 capsule by mouth once daily as neededtemazepam (RESTORIL) 15 mg capsule Take 15 mg by mouth nightly as needed. 01/12/2021 Active End: 03-41-9236qrgb 2 capsules by mouth once daily as needed for sleeptemazepam (RESTORIL) 15 MG capsule Take 30 mg by mouth nightly as needed for Sleep. 0 05/08/2021 Discontinued (LIST CLEANUP)1 ml testosterone cypionate 200 mg/ml injection (20 sources)AndrogenStart: 24-92-7394qkxjlm 200 mg by intramuscular injection every other weekStart: 70-78-8327hjvztl 200 mg by intramuscular injection every other weekTestosterone Cypionate Active 200 MG IM EVERY 2 WEEKS November 07, 2023 12:00amStart: 87-51-4529cuksyoizwyqn cypionate (DEPO-TESTOSTERONE) 100 mg/mL injection INJECT 1.5 ML INTO THE MUSCLE EVERY 2 WEEKS DIRECTED 05/05/2020 ActiveStart: 05-05-2020 End: 90-44-5709wihkdq 100 mg by intramuscular injection every other week testosterone cypionate (DEPOTESTOTERONE CYPIONATE) 100 MG/ML injection Testosterone Cypionate Active 100 MG IM EVERY 2 WEEKS May 05, 2020 11:40am Last taken 05/03/20 0 05/05/2020 05/08/2021 Discontinued (DUPLICATE)Start: 05-05-2020 End: 77-16-6566iuhijh 100 mg by intramuscular injection every other week Testosterone Cypionate Discontinued 100 MG IM EVERY 2 WEEKS May 05, 2020 1:00am October 11:18am Last taken 05/03/20inject 0.75 mL by intramuscular injection every other weekDepo-Testosterone 200 MG/ML 3/4 ml Intramuscular every 2 weeks ActiveComment on above:INJECT 1.5 ML INTO THE MUSCLE EVERY 2 WEEKS DIRECTEDTESTOSTERONE AQUEOUS IM (3 sources)TESTOSTERONE AQUEOUS IM Inject 0.75 mLs into the muscle every 14 days 0 ActiveTestosterone Cypionate 200 mg/mL intramuscular solution (6 sources)Start: 63-36-8108kvxxvx 200 mg by intramuscular injection every other weekTestosterone Cypionate 200 mg/mL intramuscular solution 200 mg = 1 mL, IntraMuscular, q2wk, Refills(s) 0 Start Date: 03/19/22 Status: Ordered Repeat number: 1Start: 10-68-4467vvopmo 200 mg by intramuscular injection every other weekTestosterone Cypionate 200 mg/mL intramuscular solution 200 mg = 1 mL, IntraMuscular, q2wk, Refills(s) 0 Start Date: 03/19/22 Status: OrderedtiZANidine 4 mg oral tablet (20 sources)Central alpha-2 Adrenergic AgonistStart: 62-65-0671clNCGozjux (ZANAFLEX) 4 MG tablet 4 mg 1-2 every night 0 05/05/2020 ActiveStart: 05-05-2020 take 8 mg by mouth once daily at bedtimeTizanidine Active 8 MG PO Daily at bedtime May 05, 2020 1:00amStart: 76-77-3276tbfr 1 tablet by mouth every eight hoursZanaflex 4 mg Tab 4 mg = 1 tab(s), Oral, q8hr, Refills(s) 0, Sleep Start Date: 02/15/20 Status: Ordered Repeat number: 1Start: 75-14-5362dohb 2 tablets by mouth once daily at bedtimetizanidine HCl (ZANAFLEX ORAL) daily at bedtime. Activetizanidine HCl (ZANAFLEX ORAL) daily at bedtime. 0 Active tizanidine HCl (ZANAFLEX ORAL)tiZANidine (Zanaflex) 4 MG tablet Every 8 hours. 0 ActiveComment on above:daily at bedtime.traZODone hydrochloride 150 mg oral tablet (20 sources)Serotonin Reuptake InhibitorStart: 70-23-4872ziia 1 tablet by mouth once daily at bedtimeStart: 08-00-0797ymzh 3 tablets by mouth once daily traZODone (DESYREL) 50 mg tablet Take 3 tablets (150 mg total) by mouth nightly. 04/17/2021 ActiveStart: 37-20-3054rmpc 1 tablet by mouth once dailytraZODone (DESYREL) 50 mg tablet Take 1 tablet (50 mg total) by mouth nightly. 0 04/17/2021 ActiveZinc (3 sources)ZINC PO Take by mouth daily 0 Active Completed/Discontinued Medications MedicationDrug Class(es)DatesSig (Normalized)Sig (Original)amitriptyline hydrochloride 50 mg oral tablet (20 sources)Tricyclic AntidepressantStart: 05-05-2020 End: 48-51-1553lfqm 3 tablets by mouth once daily at bedtimeAmitriptyline 50 mg tablet Discontinued 150 MG PO Daily at bedtime May 05, 2020 1:00am November 07, 2023 11:12amStart: 05-05-2020 End: 76-68-5941qurp 150 mg by mouth once daily at bedtimeAmitriptyline Discontinued 150 MG PO Daily at bedtime May 05, 2020 1:00am November 07, 2023 11:12amtake 1 tablet by mouth once dailyamitriptyline (ELAVIL) 50 mg tablet Take 50 mg by mouth nightly. ActiveComment on above:Take 50 mg by mouth daily at bedtime.baclofen 10 mg oral tablet (5 sources)gamma-Aminobutyric Acid-ergic AgonistStart: 05-05-2020 End: 44-97-7141qnxq 1 tablet by mouth once daily at bedtime as needed for muscle spasmsBaclofen 10 mg Tablet Discontinued 10 MG PO Daily at bedtime as needed for Muscle Spasm April 1:00am November 07, 2023 11:12am Takes if zanaflex is unavailablebesifloxacin 6 mg/ml ophthalmic suspension (2 sources)Quinolone AntimicrobialBesifloxacin (BESIVANCE) 0.6 % drps Use 1 Drop in both eyes as directed. 0 ActiveComment on above:Use 1 Drop in both eyes as directed.brimonidine tartrate 2 mg/ml / timolol 5 mg/ml ophthalmic solution (2 sources)alpha-Adrenergic Agonist, beta-Adrenergic BlockerBrimonidine-Timolol (COMBIGAN) 0.2-0.5 % drop Use 1 Drop in the right eye twice daily. 0 Active Comment on above:Use 1 Drop in the right eye twice daily.168 hr buprenorphine 0.01 mg/hr transdermal system (2 sources)Partial Opioid Agonistapply 1 dose transdermal route every week buprenorphine (BUTRANS) 10 mcg/hour Apply 1 Patch as directed once each week. 0 ActiveComment on above:Apply 1 Patch as directed once each week.calcium chloride 0.0014 meq/ml / potassium chloride 0.004 meq/ml / sodium chloride 0.103 meq/ml / sodium lactate 0.028 meq/ml injectable solution (2 sources)Start: 05-24-2021 End: 75-85-6312fqgenutn ringers infusioncarvedilol 25 mg oral tablet (19 sources)alpha-Adrenergic [place], beta-Adrenergic BlockerStart: 05-05-2020 End: 41-27-6670yyte 1 tablet by mouth twice dailyCarvedilol 25 mg tablet Discontinued 25 MG PO Twice daily May 05, 2020 1:00am November 07, 2023 11:12amComment on above:Take 25 mg by mouth twice daily with meals.ceFAZolin (ANCEF) 1,000 mg in sterile water 10 mL IV syringe (1 source)Start: 05-24-2021 End: 31-02-0266weFFDdeaz (ANCEF) 1,000 mg in sterile water 10 mL IV syringe cephalexin 500 mg oral capsule (2 sources)Cephalosporin Antibacterialtake 1 capsule by mouth twice daily cephALEXin (KEFLEX) 500 mg capsule Take 500 mg by mouth twice daily. 0 Active Comment on above:Take 500 mg by mouth twice daily.cetirizine hydrochloride 10 mg oral tablet (20 sources)Histamine-1 Receptor AntagonistStart: 12-12-2019 End: 52-12-3717sqsl 1 tablet by mouth once daily at bedtimeCetirizine 10 mg Tablet Discontinued 10 MG PO Daily at bedtime May 05, 2020 1:00am November 07, 2023 11:12amCETIRIZINE HCL (ZYRTEC ORAL) Take by mouth. Prn 0 Activetake 15 mg by mouth once dailyCetirizine HCl (ZYRTEC ALLERGY PO) Take 15 mg by mouth daily 0 ActiveComment on above:Take by mouth. Prnchlorhexidine gluconate 0.2 mg/ml in NS ophthalmic drops (2 sources)chlorhexidine gluconate 0.2 mg/ml in NS ophthalmic drops Use in the right eye every hour. 0 ActiveComment on above:Use in the right eye every hour. cyclopentolate hydrochloride 5 mg/ml ophthalmic solution (2 sources)cyclopentolate (CYCLOGYL) 0.5 % ophthalmic solution Use 1 Drop in both eyes as directed. 0 ActiveComment on above:Use 1 Drop in both eyes as directed.dapagliflozin 5 mg oral tablet (17 sources)Sodium-Glucose Cotransporter 2 InhibitorStart: 05-05-2020 End: 12-44-9814dycv 1 tablet by mouth once dailyDapagliflozin Propanediol (Farxiga) 5 mg tablet Discontinued 5 MG PO Daily May 05, 2020 1:00am S eptember 2023 11:12am1 ml dexamethasone phosphate 10 mg/ml injection (1 source)CorticosteroidStart: 04-11-2019 End: 07-18-0530ptuucmdvhmhni (PF) (DECADRON) injection 10 mg0.5 ml dulaglutide 1.5 mg/ml auto-injector (20 sources)GLP-1 Receptor AgonistStart: 05-05-2020 End: 85-77-1132Rufnrfiaabw (Trulicity) 0.75 mg/0.5 mL pen injector Discontinued 0.75 MG SUBCUT every week May 05, 2020 1:00am November 07, 2023 11:13am takes on Saturdaydulaglutide 0.75 mg/0.5 mL pen injector Inject 0.75 mg under the skin every 7 days. On Mondays ActiveDulaglutide (Trulicity) 0.75 MG/0.5ML Solution Pen-injector injection as directed 0 Activeerythromycin 0.005 mg/mg ophthalmic ointment (2 sources)Macrolide, Macrolide Antimicrobialerythromycin ophthalmic ointment Use 1 application in the right eye daily at bedtime. 0 ActiveComment on above: Use 1 application in the right eye daily at bedtime.2 ml fentaNYL 0.05 mg/ml injection (1 source)Opioid AgonistStart: 05-24-2021 End: 42-20-6124cnhgxUQK (SUBLIMAZE) injection 50 mcgFLUoxetine 20 mg oral capsule (2 sources)Serotonin Reuptake Inhibitortake 1 capsule by mouth once daily FLUoxetine (PROZAC) 20 mg capsule Take 20 mg by mouth once daily. 0 Active Comment on above:Take 20 mg by mouth once daily.glimepiride 4 mg oral tablet (20 sources)SulfonylureaStart: 12-12-2019 End: 40-15-4063mzsi 1 tablet by mouth once dailyGlimepiride 4 mg tablet Discontinued 4 MG PO Daily May 05, 2020 1:00am November 07, 2023 11:13am1 ml ketorolac tromethamine 30 mg/ml cartridge (1 source)Nonsteroidal Anti-inflammatory Drug, Cyclooxygenase InhibitorStart: 04-11-2019 End: 30-89-3182bshpurrfm (TORADOL) injection 60 mglansoprazole 30 mg delayed release oral capsule (2 sources)Proton Pump Inhibitortake 1 capsule by mouth once dailylansoprazole (PREVACID) 30 mg capsule Take 30 mg by mouth once daily. 0 ActiveComment on above:Take 30 mg by mouth once daily.levoFLOXacin (10 sources)Quinolone AntimicrobialLEVOFLOXACIN ORAL Take by mouth. lavaza 0 ActivelevoFLOXacin ActiveComment on above:Take by mouth. lavaza2 ml midazolam 1 mg/ml injection (1 source)BenzodiazepineStart: 05-24-2021 End: 79-06-2323yydqrvgxw PF (VERSED) injection 1 mg2 ml orphenadrine citrate 30 mg/ml injection (1 source)Muscle RelaxantStart: 04-11-2019 End: 38-41-7669owcdgphbxxaz (NORFLEX) injection 60 mgPERFLUTREN LIPID MICROSPHERE 1.3 ML/8.7ML (1 source)Start: 02-04-2020 End: 96-19-3813KMYDNRQBAO LIPID MICROSPHERE 1.3 ML/8.7MLprednisoLONE acetate 10 mg/ml ophthalmic suspension (2 sources)CorticosteroidStart: 88-77-4184vkfnobawBHFD acetate (PRED FORTE, ECONOPRED PLUS) 1 % ophthalmic suspension Use 1 Drop in the righteye once daily. 1 Bottle 0 12/29/2013 ActiveComment on above:Use 1 Drop in the right eye once daily.72 hr scopolamine 0.0139 mg/hr transdermal system (1 source)AnticholinergicStart: 05-24-2021 End: 50-01-4914luuqtfwktdh (TRANSDERM-SCOP) transdermal patch 1 patchsimvastatin 10 mg oral tablet (20 sources)HMG-CoA Reductase InhibitorStart: 05-24-2016 End: 84-19-7729jeyc 1 tablet by mouth once daily at bedtimeSimvastatin 10 mg tablet Discontinued 10 MG PO Daily at bedtime May 05, 2020 1:00am November 07, 2023 11:14amComment on above:Take 1 tablet by mouth once daily. tetrahydrozoline (2 sources)TETRAHYDROZOLINE HCL (EYE DROPS OPHTHALMIC) Use in eyes. voriconizole 1% q hour OD 0 ActiveComment on above:Use in eyes. voriconizole 1% q hour OD tobramycin 3 mg/ml ophthalmic solution (2 sources)Aminoglycoside Antibacterialtobramycin (TOBREX) 0.3 % ophthalmic solution Use 1 Drop in the right eye as directed. 0 ActiveComment on above:Use 1 Drop in the right eye as directed.traMADol hydrochloride 50 mg oral tablet (3 sources)Opioid Agonist End: 99-77-0083bhqv 1 tablet by mouth every six hours as neededtraMADol (ULTRAM) 50 mg tablet Take 50 mg by mouth every 6 hours as needed. 0 ActiveComment on above:Take 50 mg by mouth every 6 hours as needed.valACYclovir 500 mg oral tablet (2 sources)Herpesvirus Nucleoside Analog DNA Polymerase Inhibitor, Herpes Simplex Virus Nucleoside Analog DNA Polymerase Inhibitor, Herpes Zoster Virus Nucleoside Analog DNA Polymerase InhibitorStart: 39-92-6046dexw 1 tablet by mouth once dailyvalACYclovir (VALTREX) 500 mg tablet Take 1 tablet by mouth once daily. 30 tablet 3 02/03/2014 ActiveComment on above:Take 1 tablet by mouth once daily.Vancomycin (2 sources)Glycopeptide AntibacterialVANCOMYCIN HCL (VANCOMYCIN 50 MG/ML) Use 1 Drop in the right eye as directed. 0 ActiveComment on above:Use 1 Drop in the right eye as directed.voriconazole 200 mg injection (4 sources)Azole AntifungalStart: 52-21-8095xrvv 1 tablet by mouth twice daily voriconazole (VFEND) 200 mg tablet Take 1 tablet by mouth twice daily. 60 tablet 2 11/26/2013 ActiveStart: 69-67-0813nuem 1 drop(s) into the eye(s) every two hoursvoriconazole (VFEND) 1% Ophth Drops ([facility]) Use 1 Drop in the right eye every 2 hours. 1 Bottle 3 11/26/2013 ActiveComment on above:Use 1 Drop in the right eye every 2 hours.Take 1 tablet by mouth twice daily. Problems Active Problems Problem ClassificationProblemDateDocumented DateEpisodic/ChronicAllergic reactions (6 sources)Environmental pajxkpu89-22-5687IfekkmmuCxwwbjt disorders (20 sources)Anxiety disorder, unspecified; Translations: [Anxiety]Onset: 919102-22-6701EdmhcftLvylkuidt and vision defects (1 source)Unspecified visual loss; Translations: [UNSPECIFIED VISUAL LOSS]Onset: 22-80-0394TpyxlkcJiebdulj of urinary tract (20 sources)History of calculus of kidney; Translations: [Personal history of urinary calculi]Onset: 822622-09-2098ZtcewyfmDsaihbs kidney disease (20 sources)Chronic kidney disease stage 4; Translations: [Chronic kidney disease, stage 4 (severe)]Onset: 08-22-2021 Resolved: 85-17-6341NhnzlgcKzbqnwidllio of device; implant or graft (15 sources)Retained ureteric stent; Translations: [Infection and inflammatory reaction due to other internal joint prosthesis, subsequent encounter]Onset: 097785-08-5793DkniaulhXnhewaxkuu and other anemia (11 sources)Anemia of renal disease; Translations: [Anemia in chronic kidney disease]ChronicDeficiency and other anemia (4 sources)Anemia in chronic kidney disease; Translations: [ANEMIA IN CHRONIC KIDNEY DISEASE]Onset: 10-25-2021 Resolved: 03-22-4369FvllqguMgsqzckl mellitus with complications (20 sources)Type 2 diabetes mellitus in obese; Translations: [Type 2 diabetes mellitus with other specified complication]Onset: 12-28-2020 Resolved: 210268-22-3099XbkwynaBqmjfvyg mellitus without complication (20 sources)Type 2 diabetes mellitus without complication; Translations: [Diabetes mellitus]Onset: 162537-19-8335CxjyccoHkcrbsjue of lipid metabolism (20 sources)Pure hypercholesterolemia, unspecified; Translations: [Hyperlipidemia]Onset: 680300-75-8682UaclsusFyipzznvwmmthw and diverticulitis (1 source)Diverticulosis of large intestine without perforation or abscess without bleeding; Translations: [DVRTCLOS LG INT NO PERF/ABSC W/O BL]Onset: 57-60-7519QjlqfttQfuhaepcdd disorders (20 sources)Gastro-esophageal reflux disease without esophagitis; Translations: [Gastroesophageal reflux disease]Onset: 412451-12-1350YprvxmcSkfrnjdgn hypertension (20 sources)Essential hypertension; Translations: [Hypertensive disorder]Onset: 854326-11-2284GigerykCdfyc and electrolyte disorders (6 sources)Hyperkalemia; Translations: [HYPERKALEMIA]Onset: 10-16-2021 Resolved: 25-27-4101KpkphewoTafyimnbfhhzv symptoms and ill-defined conditions (18 sources)Dysuria; Translations: [Major hematuria]Onset: 90-77-9541Njywmfxf Hyperplasia of prostate (20 sources)Benign prostatic hyperplasia; Translations: [Benign prostatic hyperplasia without lower urinary tract symptoms]Onset: ChronicHypertension with complications and secondary hypertension (20 sources)Chronic kidney disease due to hypertension; Translations: [Hypertensive chronic kidney disease withstage 1 through stage 4 chronic kidney disease, or unspecified chronic kidney disease]Onset: 10-25-2021 Resolved: 65-91-3561KicsqbwWgowjjzbsqebbe (1 source)Unspecified osteoarthritis, unspecified site; Translations: [UNSPECIFIED OSTEOARTHRITIS UNS SITE]Onset: 17-27-3783RawbwteQxwvg acquired deformities (1 source)Spondylolisthesis, lumbar region; Translations: [Lumbar adjacent segment disease with spondylolisthesis]Onset: 82-45-6000DtrniswgGbyfh connective tissue disease (1 source)Presence of unspecified artificial knee joint; Translations: [PRESENCE UNS ARTIFICIAL KNEE JOINT]Onset: 84-92-2037CsviktwRtdzr connective tissue disease (1 source)Presence of artificial knee joint, bilateral; Translations: [PRESENCE ARTIFICIAL KNEE JNT BILAT]Onset: 90-07-5246RiejbpmYhipj connective tissue disease (2 sources)Presence of right artificial knee joint; Translations: [Presence of right artificial knee joint]Onset: 53-06-8482RghenroHbggg connective tissue disease (2 sources)Muscle weakness (generalized); Translations: [Muscle weakness (generalized)]Onset: 71-22-7916NsssqevjQjnqg diseases of kidney and ureters (18 sources)Secondary hyperparathyroidism; Translations: [Secondary hyperparathyroidism of renal origin]Onset: 11-21-2022 Resolved: 827933-02-6700PzxeqvwUvfcl diseases of kidney and ureters (5 sources)Secondary hyperparathyroidism of renal origin; Translations: [Secondary hyperparathyroidism (of renal origin)]Onset: 10-25-2021 Resolved: 43-54-5854TpbyiieHndep diseases of kidney and ureters (2 sources)Disorder of kidney and/or ureter; Translations: [Other specified disorders of kidney and ureter]Onset: 62-96-5060RztooaaPzieg diseases of kidney and ureters (6 sources)Renal fuhj25-37-2676DvyyoqnZtsqs diseases of kidney and ureters (4 sources)Other specified disorders of kidney and ureter; Translations: [OTHER SPEC DISORDERS KIDNEY URETER]Onset: 93-49-5371KjlwnirIpbxk diseases of kidney and ureters (2 sources)Acquired renal cyst without neoplastic change; Translations: [Cyst of kidney, acquired]Onset: 96-99-1361CufmuxgrUosvf diseases of kidney and ureters (2 sources)Cyst of wsfgip76-79-7874LnjlpiurBxhhx endocrine disorders (5 sources)Male wuemidllssyj69-25-0045ApcpqanUglyu gastrointestinal disorders (2 sources)History of sleeve gastrectomy; Translations: [Bariatric surgery status]Onset: 43-06-3974CwcdyargUpxzg gastrointestinal disorders (11 sources)Altered bowel function; Translations: [Change in bowel habit]Onset: 26-61-0993MsvugwzvQimgr gastrointestinal disorders (5 sources)Acute dcwbasfb57-35-1015UqkjvytqAbtka hereditary and degenerative nervous system conditions (20 sources)Essential tremor; Translations: [Essential tremor]Onset: 11-21-2022 31-64-4317NpcsjcqLifwh infections; including parasitic (3 sources)Personal history of other infectious and parasitic diseases; Translations: [PERSONAL HX OTH INF ANDPARASITIC DZ]Onset: 91-55-4246Qymdsomz Other injuries and conditions due to external causes (1 source)Traumatic AND/OR non-traumatic injury; Translations: [Injury]Episodic Other nervous system disorders (1 source)Other chronic pain; Translations: [OTHER CHRONIC PAIN]Onset: 14-40-6128ZwwtsrrGkepx nervous system disorders (5 sources)Neurogenic bxmxwhegdzxz14-47-2019NkwjmqwyYgidw nervous system disorders (1 source)Other acute postprocedural pain; Translations: [Post-op pain]Onset: 83-79-3642PwsqttwhOwryi non-traumatic joint disorders (5 sources)Chronic pain following right total knee arthroplasty; Translations: [Pain in right knee]41-52-8724EvderqddWkxlb nutritional; endocrine; and metabolic disorders (20 sources)Morbid obesity; Translations: [Morbid (severe) obesity due to excess calories]Onset: 731762-20-2225TkecymoHinea nutritional; endocrine; and metabolic disorders (20 sources)Body mass index 40+ - severely obese; Translations: [Morbid (severe) obesity due to excess calories]Onset: 130315-26-0222CkpizbtOhphl nutritional; endocrine; and metabolic disorders (1 source)Obesity, unspecified; Translations: [OBESITY UNSPECIFIED]Onset: 44-65-0175CgnqnpeCfvcw nutritional; endocrine; and metabolic disorders (1 source)Body mass index (BMI) 45.0-49.9, adult; Translations: [BODY MASS INDEX BMI 45.0-49.9 ADULT]Onset: 36-84-8875AlfxsgjLtdfk nutritional; endocrine; and metabolic disorders (1 source)Morbid (severe) obesity due to excess calories; Translations: [MORBID SEVERE OBES D/T EXCESS CARLY]Onset: 11-51-9609DcmehlkGsops nutritional; endocrine; and metabolic disorders (1 source)Body mass index (BMI) 40.0-44.9, adult; Translations: [BODY MASS INDEX BMI 40.0-44.9 ADULT]Onset: 95-38-5725ZdlwpxzEtkpc nutritional; endocrine; and metabolic disorders (3 sources)Hyperuricemia without signs of inflammatory arthritis and tophaceous disease; Translations: [Other abnormal blood chemistry]EpisodicOther nutritional; endocrine; and metabolic disorders (2 sources)Hyperuricemia; Translations: [Hyperuricemia without signs of inflammatory arthritis and tophaceous disease]40-06-3049QcrxkhlcPsskj screening for suspected conditions (not mental disorders or infectious disease) (12 sources)Encounter for screening for malignant neoplasm of prostate; Translations: [Other specified abnormalfindings of blood chemistry]Onset: 23-77-8055SfsdwtbcAqvwyudkz heart disease (5 sources)Saddle embolus of pulmonary frasyn36-01-2136RectgcqTozdhdbd codes; unclassified (11 sources)Sleep pafut86-61-0112MtqequvWxeidnq on above:has cpap but hasnt worn in 3 years because he is claustrophobicResidual codes; unclassified (1 source)Obstructive sleep apnea (adult) (pediatric); Translations: [OBSTRUCTIVE SLEEP APNEA]Onset: 74-87-1298RclbntjBagndgbe codes; unclassified (17 sources)Obstructive sleep apnea syndrome; Translations: [Obstructive sleep apnea (adult) (pediatric)]Onset: 139396-81-0037RhedqwlNhtwtqwb codes; unclassified (1 source)Edema of lower extremity; Translations: [Fluid retention in legs] EpisodicResidual codes; unclassified (1 source)Swelling - edema - symptom; Translations: [Edema]Onset: 02-02-2020 95-82-8276NdigvvofXdsodqbb codes; unclassified (6 sources)Amonsjeo96-09-7044VektkwamLqlgkehl codes; unclassified (3 sources)Other specified postprocedural states; Translations: [OTH SPECIFIED POSTPROCEDURAL STATES]Onset: 30-30-7151UzkxujiwQbhqtdivofn; intervertebral disc disorders; other back problems (20 sources)Degeneration of lumbar intervertebral disc; Translations: [Lumbar spondylosis]Onset: 273603-23-2311MqerahiSbafkcjlvwv; intervertebral disc disorders; other back problems (20 sources)Acute back pain with sciatica; Translations: [Chronic low back pain] Onset: 182071-43-5129JvxwozgoScqwjosvighu (1 source)CHRN KIDNEY DISEASE STG 3 UNSP; Translations: [CHRN KIDNEY DISEASE STG 3 UNSP]Onset: 09-33-8518Vtmgvbhlgysu (1 source)CONTACT W/AND (SUSP) EXPOS COVID-19; Translations: [CONTACT W/AND (SUSP) EXPOS COVID-19]Onset: 81-06-1204Bwjcjfxtakms (1 source)PERSONAL HISTORY OF COVID-19; Translations: [PERSONAL HISTORY OF COVID-19]Onset: 22-27-7988Ytnytuklzoch (1 source)LOW BACK PAIN, UNSPECIFIED; Translations: [LOW BACK PAIN, UNSPECIFIED] Onset: 58-84-7506Ruqlqwdionzp (5 sources)Patient encounter arrkxb07-32-2680 Past or Other Problems Problem ClassificationProblemDateDocumented DateEpisodic/ChronicAbdominal pain (4 sources)Unspecified abdominal pain; Translations: [UNSPECIFIED ABDOMINAL PAIN]Onset: 91-01-4664FxkwrgtcMxudqyt dysrhythmias (5 sources)Tachycardia; Translations: [Tachycardia, unspecified]Onset: 315944-04-0389KabfotjwRzrofnr kidney disease (12 sources)Chronic kidney disease; Translations: [Chronic kidney disease, stage III (moderate)]Deficiency and other anemia (4 sources)Anemia, unspecified; Translations: [ANEMIA UNSPECIFIED]Onset: 44-20-5970RrsctzfaRtwabortvp and other anemia (17 sources)Iron deficiency anemia; Translations: [Iron deficiency anemia, unspecified]Onset: 544389-55-0005VcneskxhIpufngmokcnr; infection of eye (except that caused by tuberculosis or sexually transmitteddisease) (6 sources)Herpes simplex iridocyclitis; Translations: [Herpesviral iridocyclitis]Onset: 12-09-2013 Resolved: 476741-17-7145ItlecvyaObldfxr and fatigue (4 sources)Other fatigue; Translations: [OTHER FATIGUE]Onset: 38-99-3304Exivsfjz Other aftercare (1 source)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; Translations: [OTH USP CURRENT DRUG THERAPY]Onset: 64-46-5149WbpvmqcsRyavo connective tissue disease (1 source)Arthrodesis status; Translations: [ARTHRODESIS STATUS]Onset: 97-55-2962DnphvngmKqpvb connective tissue disease (17 sources)History of lumbar fusion; Translations: [Arthrodesis status]Onset: 144598-26-1257NwfrmlcrFifdp eye disorders (6 sources)Corneal edema; Translations: [Unspecified corneal edema]Onset: 12-10-2013 Resolved: 325783-19-1750TxbllxwnJlyea gastrointestinal disorders (1 source)Bariatric surgery status; Translations: [BARIATRIC SURGERY STATUS] Onset: 13-32-4785UpofdqlkXyhao lower respiratory disease (5 sources)Dyspnea; Translations: [Dyspnea, unspecified]Onset: 01-25-2021 30-02-8552SxniaschJlmut lower respiratory disease (4 sources)Shortness of breath; Translations: [SHORTNESS OF BREATH]Onset: 84-25-1444IvojjcysQgjoy lower respiratory disease (1 source)Personal history of pneumonia (recurrent); Translations: [PERSONAL HX OF PNEUMONIA RECURRENT]Onset: 67-25-3625OqlyeafwYsixxxxdl heart disease (20 sources)H/O: pulmonary embolus; Translations: [Personal history of pulmonary embolism]Onset: 100878-27-1364AaersuoyIkvzeobo codes; unclassified (1 source)Pain in buttockEpisodicSkin and subcutaneous tissue infections (1 source)Cellulitis, unspecified; Translations: [CELLULITIS UNSPECIFIED]Onset: 51-81-7009Xodbqwtr Results Test NameValueInterpretationReference RangeFacilityUrine Cultureon 12-04-2024 Bacteria identified Cx Nom (U)No Growth 2 Days PERFORMED BY: [place] [address] PATHOLOGIST DELIVERY HELPER JOANNA HELTON M.D.[facility] Physician GroupComment on above: Performed By: #### CUU #### [place] [address] USAAmbulatory Visit Summaryon 68-86-3957Demtponxbv Visit SummaryAmbulatory Visit Summary SUKHDEEP SIMENTAL :1965 MRN:[id number]-- Visit Date:11/19/2024 Ambulatory Visit Instructions Your Diagnosis Kidney stone BPH with urinary obstruction Screening for prostate cancer Renal cyst Your Care Team Attending Physician - MANOLO Canada APRN, Yarely Mcgregor Primary Care Physician - Derick Isabel MD This Is Your Medications List Contact prescribing physician if questions or concerns acetaminophen-oxycodone (acetaminophen-oxycodone 325 mg-10 mg oral tablet) bumetanide (bumetanide [...] ESWL of kidney (07/13/2021), Cystoscopic insertion of uretericstent (06/29/2021), Gastric sleeve (04/2021), Cystoscopy (03/28/2020), ESWL [...] Cecelia MURILLO MD Where: [facility] [address] [address]- You Need to Schedule the Following Appointments Follow Up with Cecelia MURILLO MD, URL When: Comments: as scheduled Where: [facility] [place] [address]- Medications What How Much When Instructions Unchanged acetaminophen-oxycodone (acetaminophen-oxycodone 325 mg-10 mg oral tablet) 1 Tablets [...] Tablets By Mouth Every day Contact prescribing physicianif questions or concerns Unchanged metoclopramide (metoclopramide 10 [...] Tab) 1 Tablets Contact prescribing physician if questionsor concerns Unchanged tamsulosin (tamsulosin 0.4 mg Cap) [...] prostate cancer Sleep apnea (more content not included)...[facility] HospitalUrology Office/Clinic Noteon 58-63-1818Voscnsm Office/Clinic NoteUrology Office/Clinic Note Chief Complaint right string stent removal [facility] Staff 59 yr old male here for [...] ureteroscopy/holmium laser litho of large left ureteral calculus/stonebasket extraction 07/13/21. SÁNCHEZ 12/21/21 - Multiple echogenic [...] acquired) Seen in consult on 06/29/21 at [facility]. 11/14/21 - BUN 19.0. Crea 1.62. [...] nonspecific bilateral perinephric fat stranding, originating from thelower pole of the Rt kidney is a 2.7 cm cyst. SÁNCHEZ 07/16/24 [facility] - Cyst at the RIP 3.1 x 3.0 x 3.0 cm. Of note, pt was to have CT prior to visit. Pt states he is unable to afford a CT unfortunately. Prior possible mass has been confirmed as a simple cyst. No further imaging is warranted. Follow-up With When Contact Information LIDIA JACOBS, Cecelia Jj, URL [address] [facility] [place] [address]- Additional Instructions: as scheduled Patient Education Kidney Stones, Jdkp-me-Jifd Problem List/Past Medical History Ongoing Acute diarrhea [...] ureteric stent (0 (more content not included)... [facility] HospitalComment on above:Result Comment: Electronically Signed By: MANOLO Canada APRN, Yarely Mcgregor\.br\Date and Time Signed: 11/19/24 11:41 EDTErythrocyte distribution width Auto (RBC) [Ratio]Ordered By: Oumou Weinstein on 52-73-3501Czglzyperci distribution width (RBC) [Ratio]12.1 %11.0-15.0Mckitrick HospitalGlomerular filtration rate (GFR) estimation in non- AmericanOrdered By: Oumou Weinstein on 72-90-7124VNY/1.73 sq M.predicted among non-blacks MDRD (S/P/Bld) [Vol rate/Area]55 mL/min/{1.73_m2}Low>=60 mL/min/1.73m 2FUpper Valley Medical CenterHematocrit Auto (Bld) [Volume fraction]Ordered By: Oumou Weinstein on 02-22-9873Drkrcdjsuq (Bld) [Volume fraction] 43.5 %42.0-54.0Mckitrick HospitalHemoglobin [Mass/volume] in BloodOrdered By: Oumou Weinstein on 91-28-0244Uyjjxrwzbz (Bld) [Mass/Vol]14.9 g/dL 14.0-18.0M[facility]itrick HospitalLaboratory - Chemistry and Chemistry - challengeOrdered By: Oumou Weinstein on 36-46-7369Ooxhhzy [Mass/Vol]3.5 g/dL3.4-5.0 [facility] HospitalCalcium [Mass/Vol]8.9 mg/dL8.5-10.1FUpper Valley Medical CenterChloride [Moles/Vol]106 mmol/C94-761AvimelpxmMckitrick HospitalCO2 [Moles/Vol]27.5 mmol/L21.0-32.0Mckitrick HospitalCreatinine [Mass/Vol]1.32 mg/dLHigh0.70-1.30Mckitrick HospitalGFR/1.73 sq M.predicted MDRD (S/P/Bld) [Vol rate/Area]mL/min/{1.73_m2}>=60 mL/min/1.73m 2FUpper Valley Medical CenterGlucose [Mass/Vol]246 mg/dLHigh 74-106Mckitrick HospitalMagnesium [Mass/Vol]1.8 mg/dL1.8-2.4 [facility] HospitalPotassium [Moles/Vol]3.8 mmol/L3.5-5.1FMemorial Health Systemodium [Moles/Vol]143 mmol/Y267-702RpkggecghMckitrick HospitalUrate [Mass/Vol]7.5 mg/dLHigh3.5-7.2FUpper Valley Medical CenterUrea nitrogen [Mass/Vol]23.0 mg/dLHigh7.0-18.0Mckitrick HospitalUrea nitrogen/Creatinine [Mass ratio]17.4 mg/mgMckitrick HospitalBilirubin Ql (U)NegativeNEGKindred Hospital DaytonGlucose (U) [Mass/Vol]NegativeNEGATIVEMckitrick HospitalKetones Ql (U) NegativeNEGATIVEMckitrick HospitalpH (U)5.5 [pH]5.0-9.0Guernsey Memorial Hospitalpecific gravity (U) [Rel density]1.0151.005-1.025 [facility]itrick HospitalUrobilinogen Qn (U)0.2 {Dahiana'U}/dL0.2-1.0 [facility] HospitalLaboratory - Specimen informationOrdered By: Oumou Weinstein on 82-33-0693Jknocphchc (U)CLEARCLEARFUpper Valley Medical CenterColor (U)LT. YELLOWYELLOWMckitrick HospitalLaboratory - UrinalysisOrdered By: Oumou Weinstein on 96-69-4409Tdpkhenni esterase Test strip Ql (U)NegativeNEGATIVEMckitrick HospitalMucus Ql (Urine sed)NONE SEENNONE SEENMckitrick HospitalNitrite Ql (U)NegativeNEGATIVE [facility] HospitalProtein (U) [Mass/Vol]7.8 mg/dL<=11.9Mckitrick HospitalProtein Ql (U)NegativeNEG/TRACEMckitrick HospitalLeukocytes [#/volume] corrected for nucleated erythrocytes in Blood by Automated counOrdered By: Oumou Weinstein on 56-92-5815FMH corrected for nucl RBC Auto (Bld) [#/Vol]5.8 10 3/uL4.0-11.0[facility] Auto (RBC) [Entitic mass]Ordered By: Oumou Weinstein on 78-43-2771FWV (RBC) [Entitic mass]31.3 pg25.9-34.0Kettering Health Main CampusHC Auto (RBC) [Mass/Vol] Ordered By: Oumou Weinstein on 72-81-1396QFBO (RBC) [Mass/Vol]34.3 g/dL29.9-35.2 [facility] HospitalMCV Auto (RBC) [Entitic vol]Ordered By: Oumou Weinstein on 91-75-3524ARN (RBC) [Entitic vol]91.4 fL80.0-94.0Mckitrick HospitalNo Panel InformationOrdered By: Oumou Weinstein on - Hydroxy Vitamin D Total44.6 ng/mLMckitrick HospitalComment on above:<20 ng/mL Vit D xklrluvxb87-<30 ng/mL Vit D tzrbdafhjduc84-720 ng/mL Vit D sufficient>100 ng/mL Potential ToxicityParathyroid Hormone (Intact)50 pg/mL15-65 Mckitrick HospitalComment on above:Performed at: - [facility] [id number] Director: Logan Martinez PhD, Phone: [phone] Level2.6 mg/dL2.6-4.7FUpper Valley Medical CenterUrine BacteriaNONE SEEN #/HPFNONE SEENMetrohealth Parma Medical Center [facility] Urine Occult BloodMODERATEAbnormalNEGATIVEMckitrick HospitalUrine Other CastsNONE SEEN #/LPFNONE [facility] HospitalUrine Other CrystalsNone Seen #/HPFNone [facility] CampusUrine Random Vhfiysiggs18.26 mg/dL20.00-300.00Mckitrick HospitalUrine RBC5-10 #/HPFAbnormal0-2FUpper Valley Medical CenterUrine Squamous Epithelial Cells NONE SEEN #/LPFNONE/RAREMckitrick HospitalUrine WBC0-2 #/HPF AbnormalNONE [facility] HospitalPlatelet mean volume Auto (Bld) [Entitic vol]Ordered By: Oumou Corinna on 92-40-0295Xuunpxyo mean volume (Bld) [Entitic vol]8.9 fLLow9.5-13.5FUpper Valley Medical CenterPlatelets Auto (Bld) [#/Vol]Ordered By: Oumou Corinna on 48-15-1311Wziciugqx (Bld) [#/Vol] 188 10 3/zK519-011VhiqksakbMckitrick HospitalRBC Auto (Bld) [#/Vol]Ordered By: Oumou Corinna on 05-65-6914CRK (Bld) [#/Vol]4.76 10 6/uL4.70-6.10Guernsey Memorial Hospitalerum or plasma anion gap determinationOrdered By: Oumou Corinna on 08-71-6588Lybbo gap [Moles/Vol]13.3 mmol/LFUpper Valley Medical CenterUrine protein/creatinine ratioOrdered By: Oumou Corinna on 11-10-2024 Protein/Creatinine (U) [Ratio]0.18FUpper Valley Medical CenterAmbulatory Visit Summaryon 54-88-7791Kmwmnndflg Visit SummaryAmbulatory Visit Summary SUKHDEEP SIMENTAL :1965 MRN:[id number] Visit Date:08/07/2024 Ambulatory Visit Instructions Your Diagnosis Renal cyst Kidney stone BPH with urinary obstruction Tests Performed XR Abdomen 1 View -- Results Pending -- Please visit your patient portal for your results or contact your primary care physician. Your Care Team Attending Physician - LIDIA JACOBS, Cecelia Jj Primary Care Physician - Derick Isabel MD This Is Your Medications List Contact prescribing physician if questions or concerns acetaminophen-oxycodone (acetaminophen-oxycodone 325 mg-10 mg oral tablet) bumetanide (bumetanide [...] Cecelia MURILLO MD Where: [facility] [address] You Need to Schedule the Following Appointments Follow Up with Cecelia MURILLO MD, URL When: Where: [address] [place] [address]- Medications What How Much When Instructions Unchanged acetaminophen-oxycodone (acetaminophen-oxycodone 325 mg-10 mg oral tablet) 1 Tablets By Mouth Every 6 hours as needed for as needed for pain Contact prescribing physician if questions or concerns Unchanged bumetanide (bumetanide 1 mg Tab) 1 Tablets By Mouth Every day Contact prescribing physician if questions or concerns Unchanged doxazosin (doxazosin 4 mg Tab) 1 Tablets By Mouth Every day Contact prescribing physicianif questions or concerns Unchanged doxepin (doxepin 10 mg Cap) Contact prescribing physician if questions or concerns Unchanged ferrous sulfate (FeroSul 325 mg oral tablet) 1 Tablets By Mouth 2 times a day Contact prescribing physician if questions or concerns Unchanged irbesartan (Avapro 300 mg Tab) 1 Tablets By Mouth Every day Contact prescribing physicianif questions or concerns Unchanged metoclopramide (metoclopramide 10 [...] BPH with urinary obstructio (more content not included)...NormalAdventhealth Hendersonvilleer Holy Cross HospitalUrology Office/Clinic Noteon 37-63-9847Ghdfgrr Office/Clinic Note Urology Office/Clinic Note Chief Complaint 18 month f/u with SÁNCHEZ and KUB HPI Staff 58 year old male patient here for follow up with KUB/SÁNCHEZ. KUB/SÁNCHEZ done 07/16/24 @ [facility]. Previous dx: renal mass, kidney stone, [...] acquired) Seen in consult on 06/29/21 at [facility]. 11/14/21 - BUN 19.0. Crea 1.62. [...] nonspecific bilateral perinephric fat stranding, originating from thelower pole of the Rt kidney is a [...] ureteroscopy/holmium laser litho of large left ureteral calculus/stonebasket extraction 07/13/21. SÁNCHEZ 12/21/21 - Multiple echogenic [...] Information LIDIA JACOBS, Cecelia Jj, URL [address] [place] [address]- Additional Instructions: 1 year w/ KUB and [...] essential tremor BMI 40.0- (more content not included)...[facility] Warren HospitalComment on above:Result Comment: Electronically Signed By: Cecelia MURILLO MD\.br\Date and Time Signed: 08/07/24 12:00 EDT\.br\Electronically Co-Signed By: Jacqueline Calero\.br\Date and Time Co-Signed: 08/07/2510:53 EDT\.br\Electronically Co-Signed By: Jacqueline Calero\.br\Date and Time Co-Signed: 08/07/24 11:56 EDT\.br\Electronically Co-Signed By: Jacqueline Calero\.br\Date and Time Co- Signed: 08/07/24 11:57 EDTPatient Letter [facility] 19-66-3703Fwkyfhn Letter [facility] Patient Letter [facility] June 22, 2024 SUKHDEEP SIMENTAL [address] [facility] [place] [address] : 1965 Dear Mr. Sukhdeep Simental, You missed your scheduled appointment on: 06/22/2024. Please note our appointment slots fill quickly. When you fail to cancel or reschedule an appointment the office is unable to fill the appointmentslot that was reserved for you. In the [...] any future cancellations. Sincerely, [facility] [place] [phone] ext.[phone] NoGalion Community HospitalFollow-Upon 06-17-2024 Follow-[id number] Sukhdeep Simental F 1965 M Date Provider Department Center 06/17/2024 PAYTON GRIFFITH MP [facility]THO [facility] Family History Problem Relation Age of Onset Dementia Mother Esophageal cancer Father Alcohol abuse Father Family Status - Relation Status Age at Mother Alive Father Level of Service:[address] [place] OFFICE/OUTPATIENT ESTABLISHED SF MDM 10 [facility]36on 55-73-412859Eibc need to see the patient as soon as possible repeat x-rays and blood test to further evaluate as he has had previous infections and has high risk for recurrent infections and 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 PT WILL COME IN TODAYNormalUniversKettering Health HamiltonBASIC METABOLIC PANELon 69-76-9026Lbvfj gap [Moles/Vol]12 mmol/LNormal7-20UnMercy Health St. Joseph Warren HospitalComment on above:Performed By: #### [id number] #### [facility] ([facility]) [address] [place], [place] [address]Xddtxgb [Mass/Vol]9.9 mg/dLNormal8.6-10.3UnMercy Health St. Joseph Warren HospitalComment on above:Performed By: #### [id number] #### [facility] ([facility]) [address] [place] [address]Drxogjai [Moles/Vol]105 mmol/FWaiyyb58-487EcctegkvwzMercy Health St. Joseph Warren HospitalComment on above:Performed By: #### [id number] #### [facility] ([facility]) [address] [place] [address]YY6 [Moles/Vol]27 mmol/ZFykyge99-08RhgfeicuzdMercy Health St. Joseph Warren HospitalComment on above:Performed By: #### [id number] #### [facility] ([facility]) [address] [place] [place] [address]Kaeqcnkjpm [Mass/Vol]1.42 mg/dLHigh0.70-1.30UnMercy Health St. Joseph Warren HospitalComment on above:Performed By: #### [id number] #### [facility] ([facility]) [address] [place], [place] [address]HRCBZACKYJ FILTRATION RATE ML/MIN/1.73 SQ M.HDPRJSTFY91.6 mL/min/1.73m*2Low>60.0UnMercy Health St. Joseph Warren HospitalComment on above:Result Comment: [facility]???s estimated glomerular filtration rate (eGFR) [...] potential consequences that do not disproportionately affect anyone group of individuals.Performed By: #### [id number] #### [facility] ([facility]) [address] [place] [address]Nkvqhew [Mass/Vol]102 mg/nDCviw19-223OskizquoozMercy Health St. Joseph Warren HospitalComment on above:Performed By: #### [id number] #### [facility] ([facility]) [address] [place] [address]Zkwpxpgsp [Moles/Vol]4.4 mmol/LNormal3.5-5.1UnMercy Health St. Joseph Warren HospitalComment on above:Performed By: #### [id number] #### [facility] ([facility]) [address] [place] [address]Uktkdx [Moles/Vol]140 mmol/SLfvxpk020-100DdnhpwopcxMercy Health St. Joseph Warren HospitalComment on above:Performed By: #### [id number] #### [facility] ([facility]) [address] [place] [address]Ihqs nitrogen [Mass/Vol]23 mg/dLNormal7-25UnMercy Health St. Joseph Warren HospitalComment on above:Performed By: #### [id number] #### [facility] ([facility]) [address] [place], [place] [address]YYUF NITROGEN/CREATININE (MASS RATIO) IN SER/PLAS16.2Normal [facility] Medical CenterComment on above:Performed By: #### [id number] #### [facility] ([facility]) [address] [place], [place] [address]T-FIGIZHHK PROTEINon 5C REACTIVE PROTEIN (MG/L) IN SER/PLAS<5.4Normal<=5.0UnMercy Health St. Joseph Warren HospitalComment on above: Result Comment: Testing performed using a new methodology, turbidimetry. Normal ranges have been updated. Old normal range was <8 mg/L.Performed By: #### [id number] #### [facility] ([facility]) [address] [place] [address]NLQ WITH AUTO DIFFERENTIALon 84-28-5615Gshjopdfh (Bld) [#/Vol] 0.06 10*3/uLNormal0.00-0.20UnMercy Health St. Joseph Warren HospitalComment on above: Performed By: #### [id number] #### [facility] ([facility]) [address] [place], [place] [address]Nktciaxxy/100 WBC (Bld)0.7 %Normal0.0-1.0UnMercy Health St. Joseph Warren HospitalComment on above:Performed By: #### [id number] #### [facility] ([facility]) [address] [place], [place] [address]Tyrnxgryslz (Bld) [#/Vol]0.15 10*3/uLNormal0.00-0.50UnMercy Health St. Joseph Warren HospitalComment on above:Performed By: #### [id number] #### [facility] ([facility]) [address] [place] [address]Orpwwzzgfdf/100 WBC (Bld)1.8 %Normal0.0-6.0UnMercy Health St. Joseph Warren HospitalComment on above:Performed By: #### [id number] #### [facility] ([facility]) [address] [place], [place] [address]Bphcxkhxtng distribution width (RBC) [Ratio]11.9 %Normal 11.5-15.0UnMercy Health St. Joseph Warren HospitalComment on above:Performed By: #### [id number] #### [facility] ([facility]) [address] [place], [place] [address]YHDGENMECNM MEAN CORPUSCULAR HEMOGLOBIN CONCENTRATION (G/DL) BY IHSPKQKFP44.5 g/fKBncywf01.0-35.0UnMercy Health St. Joseph Warren HospitalComment on above:Performed By: #### [id number] #### [facility] ([facility]) [address] [place], [place] [address]Oaebtzdepx (Bld) [Volume fraction]47.8 %Lkvpht05.0-50.0 [facility] CenterComment on above:Performed By: #### [id number] #### [facility] ([facility]) [address] [place], [place] [address]Ggkgzeasqb (Bld) [Mass/Vol]16.5 g/hLMstysh69.0-17.0UnMercy Health St. Joseph Warren HospitalComment on above:Performed By: #### [id number] #### [facility] ([facility]) [address] [place], [place] [address]Wsgdexow granulocytes (Bld) [#/Vol]0.03 10*3/uLNormal0.00-0.20 [facility] Medical CenterComment on above:Performed By: #### [id number] #### [facility] ([facility]) [address] [facility] [place], [place] [address]Enzcqwsz granulocytes/100 WBC (Bld)0.4 %Normal0.0-1.0UnMercy Health St. Joseph Warren HospitalComment on above:Performed By: #### [id number] #### [facility] ([facility]) [address] [place], [place] [address]Zneocnzikcx (Bld) [#/Vol]1.80 10*3/uLNormal1.20-4.00UnMercy Health St. Joseph Warren HospitalComment on above:Performed By: #### [id number] #### [facility] ([facility]) [address] [place], [place] [address]Dnfmgfxhtlf/100 WBC (Bld)21.8 %Qkwwav94.0-45.0UnMercy Health St. Joseph Warren HospitalComment on above:Performed By: #### [id number] #### [facility] ([facility]) [address] [place], [place] [address]TCO (RBC) [Entitic mass]31.5 yyNrtslu34.0-33.0UnMercy Health St. Joseph Warren HospitalComment on above:Performed By: #### [id number] #### [facility] ([facility]) [address] [place], [place] [address]OYV (RBC) [Entitic vol]91.4 aVVhozpe35.0-98.0UnMercy Health St. Joseph Warren HospitalComment on above:Performed By: #### [id number] #### [facility] ([facility]) [address] [place], [place] [address]Arbczztde (Bld) [#/Vol]0.66 10*3/uLNormal0.10-1.00UnMercy Health St. Joseph Warren HospitalComment on above:Performed By: #### [id number] #### [facility] ([facility]) [address] [place] [address]Nztfoycif/100 WBC (Bld)8.0 %Normal5.0-12.0UnMercy Health St. Joseph Warren HospitalComment on above:Performed By: #### [id number] #### [facility] ([facility]) [address] [place] [address]Fxjorlzrafl (Bld) [#/Vol]5.56 10*3/uLNormal1.60-7.60UnMercy Health St. Joseph Warren HospitalComment on above:Performed By: #### [id number] #### [facility] ([facility]) [address] [place] [address]Cjfqsecrbec/100 WBC (Bld)67.3 %Snifyk30.0-72.0UnMercy Health St. Joseph Warren HospitalComment on above:Performed By: #### [id number] #### [facility] ([facility]) [address] [place] [address]HOHP (PER 100 WBCS) BY AUTOMATED COUNT0.0 %Exugws9NfzvcvsouhMercy Health St. Joseph Warren HospitalComment on above:Performed By: #### [id number] #### [facility] ([facility]) [address] [place] [address]GIYMNLWWL (10*3/UL) IN BLOOD AUTOMATED [id number] 10*3/uLNormal 150-400UnMercy Health St. Joseph Warren HospitalComment on above:Performed By: #### [id number] #### [facility] ([facility]) [address] [place] [address]IYT (Bld) [#/Vol]5.23 10*6/uLNormal4.20-5.70UnMercy Health St. Joseph Warren HospitalComment on above:Performed By: #### [id number] #### [facility] ([facility]) [address] [place] [address]OIO (Bld) [#/Vol]8.26 10*3/uLNormal4.00-10.60UnMercy Health St. Joseph Warren HospitalComment on above:Performed By: #### [id number] #### [facility] (BEAKER) [address] [place], [place] [address]Nqzuwi-Krxj 33-85-0313Uphvhk-[id number] Sukhdeep Simental 1965 M Date Provider Department Center 05/18/2024 433-PAYTON HELM MP ORTHO MPORTHO Family History Problem Relation Age of Onset Dementia Mother Esophageal cancer Father Alcohol abuse Father Family Status - Relation Status Age at Mother Alive Father Level of Service:37537 [place] OFFICE/OUTPATIENT ESTABLISHED MOD MDM 30 MIN () Reason for Visit and Comments: Pain [136] - Swelling starts 2 months ago, started swimming about a month ago and it only made his knee worse Edema [[id number]] - Swelling starts 2 months ago, started swimming about a month ago and it only made his knee worseNormalUnMercy Health St. Joseph Warren HospitalLabon [id number] Sukhdeep Simental 1965 M Date Provider Department Center 05/18/2024 2244-[facility] MP LAB RESOURCE MP DRAW Medical Pavi Family History Problem Relation Age of Onset Dementia Mother Esophageal cancer Father Alcohol abuse Father Family Status - Relation Status Age at Mother Alive Father DeceasedNormalUniversCincinnati Children's Hospital Medical CenterEDIMENTATION RATEon 66-61-5915BWCMHNFCBHYPH RATE, ERYTHROCYTE5 mm/hrNormal<20UnMercy Health St. Joseph Warren HospitalComment on above:Performed By: #### [id number] #### [facility] (BEAKER) [address] [place], [place] [address] 15-04-[address]Ovykrid feels like his infection is back. Right knee swelling and pain but no fever. He was seen by Dr. Isabel and he put him on oral antibiotics and wanted Dr. Helm know in case he wants him to come in and be exam.NormalUnMercy Health St. Joseph Warren HospitalErythrocyte distribution width Auto (RBC) [Ratio]on 22-17-8420Uurkaiylhcu distribution width (RBC) [Ratio]11.5 %11.0-15.0Mckitrick HospitalEstimated glomerular filtration rate (GFR) non- Americanon 83-42-4803LVC/1.73 sq M.predicted among non-blacks MDRD (S/P/Bld) [Vol rate/Area]51 mL/min/{1.73_m2}Low>=60[facility] Hematocrit Auto (Bld) [Volume fraction]on 55-78-8707Ilbyefnfds (Bld) [Volume fraction]47.7 %42.0-54.0[facility] HospitalHemoglobin [Mass/volume] in Bloodon 19-44-1464Gmiadniynz (Bld) [Mass/Vol]16.8 g/dL14.0-18.0 [facility] HospitalLaboratory - Chemistry and Chemistry - challengeon 64-15-4483Kbsmxan [Mass/Vol]3.7 g/dL3.4-5.0[facility] HospitalCalcium [Mass/Vol]9.0 mg/dL8.5-10.1FUpper Valley Medical CenterChloride [Moles/Vol]103 mmol/O45-662XjwtktqtjMckitrick HospitalCO2 [Moles/Vol]26.8 mmol/L21.0-32.0[facility] HospitalCreatinine [Mass/Vol]1.41 mg/dLHigh0.70-1.30[facility] HospitalGFR/1.73 sq M.predicted MDRD (S/P/Bld) [Vol rate/Area]mL/min/{1.73_m2}>=60[facility] HospitalGlucose [Mass/Vol]167 mg/dGEyyd04-366ToysdunjaMckitrick HospitalMagnesium [Mass/Vol]1.9 mg/dL1.8-2.4FUpper Valley Medical Center Potassium [Moles/Vol]3.9 mmol/L3.5-5.1FMemorial Health Systemodium [Moles/Vol]141 mmol/M802-238IwafdlvkgMckitrick HospitalUrate [Mass/Vol]7.9 mg/dLHigh3.5-7.2FUpper Valley Medical CenterUrea nitrogen [Mass/Vol]26.0 mg/dLHigh7.0-18.0[facility] HospitalUrea nitrogen/Creatinine [Mass ratio]18.4 mg/mgMckitrick HospitalBilirubin Ql (U)Negative NEGATIVEMckitrick HospitalGlucose (U) [Mass/Vol]NegativeNEGATIVE [facility] HospitalKetones Ql (U)NegativeNEGATIVEMckitrick HospitalpH (U)6.0 [pH]5.0-9.0[facility] Specific gravity (U) [Rel density]1.0151.005-1.025[facility] HospitalUrobilinogen Qn (U)0.2 {Dahiana'U}/dL0.2-1.0[facility] HospitalLaboratory - Specimen informationon 84-85-3020Zqkhqhlcfv (U)CLEARCLEAR [facility] HospitalColor (U)LT. YELLOWYELLOWMckitrick HospitalLaboratory - Urinalysison 11-30-4733Xqhimsj casts LM Ql (Urine sed)RAREMckitrick HospitalLeukocyte esterase Test strip Ql (U) NegativeNEGATIVEMckitrick HospitalMucus Ql (Urine sed)NONE SEEN NONE SEENMckitrick HospitalNitrite Ql (U)NegativeNEGATIVE [facility] HospitalProtein Ql (U)NegativeNEG/TRACEMckitrick HospitalLeukocytes [#/volume] corrected for nucleated erythrocytes in Blood by Automated counon 58-21-1742WQB corrected for nucl RBC Auto (Bld) [#/Vol]6.9 10 3/uL4.0-11.0[facility] HospitalMCH Auto (RBC) [Entitic mass]on 73-74-1275DYI (RBC) [Entitic mass]32.2 pg25.9-34.0 [facility] HospitalMCHC Auto (RBC) [Mass/Vol]on 10-60-3896YUOW (RBC) [Mass/Vol]35.2 g/dL29.9-35.2FUpper Valley Medical CenterMCV Auto (RBC) [Entitic vol]on 91-33-1050XBO (RBC) [Entitic vol]91.6 fL80.0-94.0[facility] HospitalNo Panel Informationon 21-83-546638232129-Zzytuxp Vitamin D Total40.8 ng/mLMckitrick HospitalComment on above:<20 ng/mL Vit D yjqvvkmdj84-<30 ng/mL Vit D qbhecykwaktg43-750 ng/mL Vit D sufficient>100 ng/mL Potential ToxicityParathyroid Hormone (Intact)91 pg/nPNoxblehl86-29QmqqhkxhtMckitrick HospitalComment on above:Performed at: [facility] [id number] Director: Logan Martinez PhD, Phone: [phone] Level2.3 mg/dLLow2.6-4.7FUpper Valley Medical Center Urine BacteriaNONE SEEN #/HPFNONE [facility] HospitalUrine Occult BloodNegativeNEGATIVEMckitrick HospitalUrine Other Casts SEEN #/LPFAbnormalNONE [facility] HospitalUrine Random Pbablhrttr39.18 mg/dLLow20.00-300.00[facility] HospitalUrine Random Total Protein<6.0 mg/dL<=11.9[facility] HospitalUrine RBC NONE SEEN #/HPF0-2FUpper Valley Medical CenterUrine Squamous Epithelial CellsFEW #/LPFAbnormalNONE/RAREMckitrick HospitalUrine WBCNONE SEEN #/HPFNONE [facility] HospitalPlatelet mean volume Auto (Bld) [Entitic vol]on 19-61-0937Gtwktiyv mean volume (Bld) [Entitic vol]8.9 fL Low9.5-13.5FUpper Valley Medical CenterPlatelets Auto (Bld) [#/Vol]on 67-56-2700Ufbdomnwr (Bld) [#/Vol]236 10 3/vH710-225LsdfnpfrlMckitrick HospitalRBC Auto (Bld) [#/Vol]on 99-95-7662HOJ (Bld) [#/Vol]5.21 10 6/uL4.70-6.10 [facility] Hospitalerum or plasma anion gap determinationon 60-70-4026Uedec gap [Moles/Vol]15.1 mmol/[facility]orial Health SystemCNPN on 16-75-1947ADODOrjggtbiw (NEADFV) KAMILLESUKHDEEP ([id number]) 1965 M Date Time Provider Department 10/07/23 EDD MATHEW During your visit today, we recorded the following information about you: Shara Adm Arianna 10/07/2023 3:28 PM Signed Pt phoned to [...] 12/08/2022 Encounter Status:Closed by ARIANNA MUHAMMAD on 06/25/24[facility] [id number] (NEADFV) SIMENTALSUKHDEEP ([id number]) 1965 M Date Time Provider Department 10/04/23 [...] Encounter Status:Closed by JUAN PABLO NOVA on 10/04/23[facility] [id number] (NEADFV) SUKHDEEP SIMENTAL ([id number]) 1965 M Date Time Provider Department 07/30/23 EDD MATHEW During your visit today, we recorded the following information about you: Arianna Little 07/30/2023 11:51 AM Signed Pt phoned regarding upcoming visit 10/06 workMyTime comp appt. Pt unable to manage virtual visit asking for telephone visit. Pt asking how far in advance to do X-Ray. Pt will have X-Ray done locally at [facility]. Please call and advise Pt phone # [phone] Ekaterina Rondon 07/30/2023 1:07 PM Signed Have sent XR Lumbar order to [facility] fax # [phone] as requested from patient. Riddhi Goss APRN.TOOL MECHANIC 07/30/2023 3:25 PM Signed Called Sukhdeep, no answer, left VM Allergies As of Date: 07/30/2023 (No Known Allergies) Date Reviewed: 03/25/2023 Reviewed by: Mundo Ness PCNA - Fully Assessed Reason for Visit: Appointment [186] Orders [631] Prescriptions as of 07/30/2023 - naloxone 4 [...] 12/08/2022 Encounter Status:Closed by RIDDHI GOSS on 07/30/23[facility] 23-15-0434AZOVPsdupycuj (NIQ) SUKHDEEP SIMENTAL ([id number]) 1965 M Date Time Provider Department 07/23/23 EDD MATHEW During your visit today, we recorded the following information about you: Brenda Alex 07/23/2023 9:38 AM Signed Received request from [employer] needing more info, in [place] for review. Juan Pablo Nova, RN 07/23/2023 10:08 AM Signed Printed for review. JuanP ablo Nova RN 07/26/2023 10:57 AM Signed Office [...] Encounter Status:Closed by JUAN PABLO NOVA on 07/26/23[facility] [id number] (NIQ) SUKHDEEP SIMENTAL ([id number]) 1965 M Date Time Provider Department 04/16/23 EDD MATHEW During your visit today, we recorded the following information about you: Moriah Ferguson 04/16/2023 1:27 PM Signed Received imaging disc by mail from [facility]. Disc contains CT Lumbar spine done [...] 12/08/2022 Encounter Status:Closed by MORIAH FERGUSON on 06/06/23[facility] 08-07-1589YGYZDntangxnw (NIQ) SUKHDEEP SIMENTAL ([id number]) 1965 M Date Time Provider Department 04/10/23 EDD MATHEW During your visit today, we [...] Encounter Status:Closed by JUAN PABLO NOVA on 04/18/23[facility] [id number] (NIQ) SUKHDEEP SIMENTAL ([id number]) 1965 M Date Time Provider Department 04/09/23 EDD MATHEW During your visit today, we recorded the following information about you: Brenda Alex 04/09/2023 10:[address] Lumbar Spine Report from [facility], in epic to review. Brittany Rubio [...] 12/08/2022 Encounter Status:Closed by ROBSON LAZO on 04/09/23[facility] [id number] (NIQ) SUKHDEEP SIMENTAL ([id number]) 1965 M Date Time Provider Department 02/11/23 EDD MATHEW During your visit today, we recorded the following information about you: Moriah Ferguson 02/11/2023 1:36 PM Signed Received fax from [employer] requesting office notes, C-9, and Folloze 14. See fax scanned in patient's chart. Juan Pablo Nova RN 02/13/2023 3:14 PM Signed Information faxed to number requested. Faxed verification received. Robson De Jesus 03/06/2023 3:20 PM Signed Received updated notes from [employer] dated 03/05/23. Scanned into [employer]. Allergies As of Date: 02/11/2023 (No Known Allergies) Date Reviewed: 02/07/2023 Reviewed by: Brittany Ratliff - Fully Assessed Reason for Visit: [facility] (Worker's Comp) [4136] Prescriptions as of [...] Encounter Status:Closed by JUAN PABLO NOVA on 02/13/23[facility] 38-43-0837CWCCQmrqrglqk (NIQ) SUKHDEEP SIMENTAL ([id number]) 1965 M Date Time Provider Department 12/21/22 EDD MATHEW During your visit today, we recorded the following information about you: Moriah Ferguson 12/21/2022 9:29 AM Signed Patient called with complaints of [facility] not allowing him to greens picker the pain medication that was sent [...] >= 40 [E66.01] 12/08/2022 Encounter Status:Closed by JEREMY SCHRADER on 12/21/22[facility] [id number] (PODCCP) SUKHDEEP SIMENTAL ([id number]) 1965 M Date Time Provider Department 12/18/22 DERICK ISABEL PODCCP During your visit today, we recorded the following information about you: Amaury Carreon 12/18/2022 1:52 PM Signed PATIENT INFORMATION Record ID: [id number] Patient Name: [facility]: Shweta Lutz: Neurological Lutz Attending: Edd Mathew Center: [facility] INSTRUCTIONS SN to remind patient of next upcoming appointment date, time, location SN TRANSFER TO [facility] SURVEY INFORMATION Medical/Nurse Drama Director: Amaury Calderón 1. Your discharge instructions [...] Reason for Visit: Follow Up Phone Call [5459] Cmt: All Clear Prescriptions as of 12/18/2022 [...] 12/08/2022 Encounter Status:Closed by AMAURY CARREON on 12/18/22[facility] [id number] (NIQ) SUKHDEEP SIMENTAL ([id number]) 1965 M Date Time Provider Department 12/14/22 [...] via voice mail, as requested. Scanned into [employer]. Allergies As of Date: 12/14/2022 (No Known Allergies) Date Reviewed: 12/10/2022 Reviewed by: Yoli Guerin RN - Fully Assessed Reason for Visit: [facility] Paperwork [9492] Prescriptions as of 12/17/2022 - docusate sodium [...] 12/08/2022 Encounter Status:Closed by ABBY HERNANDEZ on 12/17/22[facility] 2000 panelon 20-21-9566Wzyxu gap [Moles/Vol]8 mmol/LLow 9-18[facility] HospitalComment on above:Order Comment: Specimen Type: BLOOD SPECIMEN Ordering Facility: [facility] Address: [address] [place], [place] [address]Performed By: #### 32530-6 #### [facility] CLIA [id number] [address] [place] [address] [place] OF AMERICACalcium [Mass/Vol]8.7 mg/dLNormal 8.5-10.2[facility] HospitalComment on above:Order Comment: Specimen Type: BLOOD SPECIMEN Ordering Facility: [facility] Address: [address] [place], [place] [address]Performed By: #### 18712-8 #### [facility] CLIA [id number] [address] [place] [address] [place] AMERICAChloride [Moles/Vol]106 mmol/LHigh 97-105[facility] HospitalComment on above:Order Comment: Specimen Type: BLOOD SPECIMEN Ordering Facility: [facility] Address: [address] [place], [place] [address]Performed By: #### 97246-6 #### [facility] CLIA [id number] [address] [place] [address] [place] AMERICACO2 [Moles/Vol]29 mmol/BYfgquw38-65 [facility] HospitalComment on above:Order Comment: Specimen Type: BLOOD SPECIMEN Ordering Facility: [facility] Address: [address] [place], [place] [address]Performed By: #### 21003-7 #### [facility] CLIA [id number] [address] [place] [address] [place] AMERICACreatinine [Mass/Vol]1.17 mg/dL Normal0.73-1.22[facility] HospitalComment on above:Order Comment: Specimen Type: BLOOD SPECIMEN Ordering Facility: [facility] Address: [address] [place], [place] [address]Performed By: #### 49627-7 #### [facility] CLIA [id number] [address] [place] [address] [place] AMERICACreatinine and Glomerular filtration rate.predicted panel (S/P/Bld)72 mL/min/1.73m???Normal>=60[facility] Comment on above:Order Comment: Specimen Type: BLOOD SPECIMEN Ordering Facility: [facility] Address: [address] [place], [place] [address]Result Comment: Estimated Glomerular Filtration Rate (eGFR) is calculated using the 2020 CKD-EPI cre atinine equation. This equation utilizes serum creatinine, sex, and age as parameters. The creatinine assay has traceable calibration to isotope dilution- mass spectrometry. Refer to KDIGO guidelines for clinical interpretation. In patients with unstable renal function, e.g. those with acute kidney injury, the eGFR may not accurately reflect actual GFR.Performed By: #### 36922-5 #### [facility] CLIA [id number] [address] [place] [address] [place] AMERICAGlucose [Mass/Vol]98 mg/dLNormal 74-99[facility] HospitalComment on above:Order Comment: Specimen Type: BLOOD SPECIMEN Ordering Facility: [facility] Address: [address] [place], [place] [address]Result Comment: The [place] Diabetes Association (ADA) provides guidance for cutoff [...] Standards of Medical Care in Diabetes 2016, [place] [employer]. Diabetes Care. 2016.39(Suppl 1).Performed By: #### 19946-9 #### [facility] CLIA [id number] [address] [place] [address] [place] AMERICAPotassium [Moles/Vol]4.8 mmol/L Normal3.7-5.1[facility] HospitalComment on above:Order Comment: Specimen Type: BLOOD SPECIMEN Ordering Facility: [facility] Address: [address] [place], [place] [address]Performed By: #### 59016-0 #### [facility] CLIA [id number] [address] [place], [place] [address] [place] AMERICASodium [Moles/Vol]143 mmol/LNormal 136-144[facility] HospitalComment on above:Order Comment: Specimen Type: BLOOD SPECIMEN Ordering Facility: [facility] Address: [address] [place], [place] [address]Performed By: #### 86111-3 #### [facility] CLIA [id number] [address] [place] [address] [place] AMERICAUrea nitrogen [Mass/Vol]13 mg/dL Normal9-24[facility] HospitalComment on above:Order Comment: Specimen Type: BLOOD SPECIMEN Ordering Facility: [facility] Address: [address] [place], [place] [address]Performed By: #### 17913-4 #### [facility] [place] [id number] [address] [place], [place] [address] [place] OF AMERICACASE MANAGEMon 42-10-0457HFKZ MANAGEMHNO ID: [id number] Author: Gloria Toro RN Service: ? Author Type: Registered Nurse Type: Care Mgt Progress Note Filed: 12/11/2022 3:26 PM Note Text: CARE MANAGEMENT PROGRESS NOTE SERVICE DATE: 12/11/2022 SERVICE TIME: 3:26 pm LOS: 4 days No further skilled PT / OT needed at [facility]. SIGNATURE: Gloria Toro RN PATIENT NAME: Sukhdeep Simental DATE: December 11, 2022 TIME: 3:25 PM PAGER/CONTACT #: [phone] [facility] panel Auto (Bld)on 40-17-3984Dcllblyytyo distribution width (RBC) [Ratio]12.5 %Normal 11.5-15.0[facility] HospitalComment on above:Order Comment: Specimen Type: BLOOD SPECIMEN Ordering Facility: [facility] Address: [address] [place], [place] [address]Performed By: #### 93872-4 #### [facility] CLIA [id number] [address] [place], [place] [address] [place] OF AMERICAHematocrit (Bld) [Volume fraction] 34.6 %Low39.0-51.0Luther HospitalComment on above:Order Comment: Specimen Type: BLOOD SPECIMEN Ordering Facility: [facility] Address: [address] [place], [place] [address]Performed By: #### 90418-8 #### [facility] IA [id number] [address] [place], [place] [address] [place] AMERICAHemoglobin (Bld) [Mass/Vol]11.7 g/dL Low13.0-17.0[facility] HospitalComment on above:Order Comment: Specimen Type: BLOOD SPECIMEN Ordering Facility: [facility] Address: [address] [place], [place] [address]Performed By: #### 32258-2 #### [facility] CLIA [id number] [address] (RBC) [Entitic mass]32.0 pg Sbapds41.0-34.0L[facility]an HospitalComment on above:Order Comment: Specimen Type: BLOOD SPECIMEN Ordering Facility: [facility] Address: [address] [place], [place] [address]Performed By: #### 33468-3 #### [facility] CLIA [id number] [address] [place] [address] (RBC) [Mass/Vol]33.8 g/dLNormal 30.5-36.0[facility]an HospitalComment on above:Order Comment: Specimen Type: BLOOD SPECIMEN Ordering Facility: [facility] Address: [address] [place], [place] [address]Performed By: #### 39748-0 #### [facility] IA [id number] [address] [place] [address] (RBC) [Entitic vol]94.5 fLNormal 80.0-100.0[facility] HospitalComment on above:Order Comment: Specimen Type: BLOOD SPECIMEN Ordering Facility: [facility] Address: [address] [place], [place] [address]Performed By: #### 70583-7 #### [facility] IA [id number] [address] [place] [address] RBC (Bld) [#/Vol]10*3/uL Normal<0.01Lutmountain vista medical centeran HospitalComment on above:Order Comment: Specimen Type: BLOOD SPECIMEN Ordering Facility: [facility] Address: [address] [place], [place] [address]Performed By: #### 92966-9 #### [facility] IA [id number] [address] [place], [place] [address]Platelet mean volume (Bld) [Entitic vol]9.4 fLNormal9.0-12.7[facility] HospitalComment on above:Order Comment: Specimen Type: BLOOD SPECIMEN Ordering Facility: [facility] Address: [address] [place], [place] [address]Performed By: #### 61470-2 #### [facility] CLIA [id number] [address] [place], [place] [address] [facility] TUSCALOOSAPlatelets (Bld) [#/Vol]196 10*3/uL Zkgzut634-127Jrbhongv HospitalComment on above:Order Comment: Specimen Type: BLOOD SPECIMEN Ordering Facility: [facility] Address: [address] [place], [place] [address]Performed By: #### 16077-1 #### [facility] IA [id number] [address] [place], [place] [address] [facility] TUSCALOOSARB (d) [#/Vol]3.66 10*6/uLLow 4.20-6.00L[facility] HospitalComment on above:Order Comment: Specimen Type: BLOOD SPECIMEN Ordering Facility: [facility] Address: [address] [place], [place] [address]Performed By: #### 71720-7 #### [facility] IA [id number] [address] [place], [place] [address]W (d) [#/Vol]9.04 10*3/uLNormal 3.70-11.00L[facility] HospitalComment on above:Order Comment: Specimen Type: BLOOD SPECIMEN Ordering Facility: [facility] Address: [address] [place], [place] [address]Performed By: #### 76125-6 #### [facility] IA [id number] [address] [place], [place] [address] [facility] TUSCALOOSACNDSon 47-51-7123LZJUZIL ID: [id number] Author: Brittany Rubio PA-C Service: Neurosurgery Author Type: Physician Drama Director Type: Discharge Summary Filed: 12/11/2022 10:38 [...] you become constipated, you may use any hztw-rcf-mtprxfx treatment such as Milk of Magnesia, Sennakot, Prune Juice, Suppositories, etc. in addition to the stool softener/fiber supplement No alcohol or driving while on pain medication Use the dispensed medication (see prescription) You should use an tzen-eky-vtyjmpj stool softener (Docusate sodium) and/or a fiber [...] to call for appointment?: (more content not included)...[facility] 74-24-7641IEGVLXCHDC ID: [id number] Author: Jaiden Rucker PA-C Service: Pain Management Author Type: Physician Drama Director Type: Consults Filed: 12/11/2022 8:09 AM Note Text: Attestation signed by Nila Cramer MD at 12/11/2022 3:42 PM I saw and evaluated the patient. Discussed with the pa and agree with scarlet's findings and plan as documented in the scarlet's note. INPATIENT PAIN MANAGEMENT CONSULT Patient Name: [...] 8/10 Lack of pain control with iv game protector fentanyl and dilaudid PERTINENT ROS: denies fever, [...] MCV (fL) Date Saniya (more content not included)...[facility] HospitalNURSING Rolando 67-96-3829MYJVLWQ PROGHNO ID: [id number] Author: Erlinda Bui, RN Service: Nursing Author [...] the above information. Patient verbalizing understanding of instructions.[facility]utheran HospitalBasic metabolic 2000 panelon 37-78-4628Turuv gap [Moles/Vol]7 mmol/LLow -[facility] HospitalComment on above:Order Comment: Specimen Type: BLOOD SPECIMEN Ordering Facility: [facility] Address: [place], [place] [address]Acuinbsnd By: #### 30401-2 #### [facility] CLIA [id number] [address] [place] [address] [place] AMERICACalcium [Mass/Vol]8.3 mg/dLLow 8.5-10.2L[facility] hospital HospitalComment on above:Order Comment: Specimen Type: BLOOD SPECIMEN Ordering Facility: [facility] Address: [address] [place], [place] [address]Performed By: #### 72860-0 #### [facility] CLIA [id number] [address] [place] [address] [place] AMERICAChloride [Moles/Vol]107 mmol/LHigh 97-105[facility] HospitalComment on above:Order Comment: Specimen Type: BLOOD SPECIMEN Ordering Facility: [facility] Address: [address] [place], [place] [address]Performed By: #### 66412-1 #### [facility] CLIA [id number] [address] [place] [address] [place] AMERICACO2 [Moles/Vol]26 mmol/SQscall54-29 [facility] HospitalComment on above:Order Comment: Specimen Type: BLOOD SPECIMEN Ordering Facility: [facility] Address: [address] [place], [place] [address]Performed By: #### 92561-2 #### [facility] CLIA [id number] [address] [place] [address] [place] AMERICACreatinine [Mass/Vol]1.16 mg/dL Normal0.73-1.22[facility] HospitalComment on above:Order Comment: Specimen Type: BLOOD SPECIMEN Ordering Facility: [facility] Address: [address] [place], [place] [address]Performed By: #### 67022-3 #### [facility] IA [id number] [address] [place] [address] [place] AMERICACreatinine and Glomerular filtration rate.predicted panel (S/P/Bld)73 mL/min/1.73m???Normal>=60[facility] Hospital Comment on above:Order Comment: Specimen Type: BLOOD SPECIMEN Ordering Facility: [facility] Address: [address] [place], [place] [address]Result Comment: Estimated Glomerular Filtration Rate (eGFR) is calculated using the 2020 CKD-EPI cre atinine equation. This equation utilizes serum creatinine, sex, and age as parameters. The creatinine assay has traceable calibration to isotope dilution- mass spectrometry. Refer to KDIGO guidelines for clinical interpretation. In patients with unstable renal function, e.g. those with acute kidney injury, the eGFR may not accurately reflect actual GFR.Performed By: #### 36386-2 #### [facility] CLIA [id number] [address] [place] [address] [place] AMERICAGlucose [Mass/Vol]129 mg/uRBfnh31-51 [facility] HospitalComment on above:Order Comment: Specimen Type: BLOOD SPECIMEN Ordering Facility: [facility] Address: [address] [place], [place] [address]Result Comment: The [place] Diabetes Association (ADA) provides guidance for cutoff [...] Standards of Medical Care in Diabetes 2016, [place] [employer]. Diabetes Care. 2016.39(Suppl 1).Performed By: #### 95831-4 #### [facility] IA [id number] [address] [place], [place] [address] [place] AMERICAPotassium [Moles/Vol]4.3 mmol/L Normal3.7-5.1[facility] HospitalComment on above:Order Comment: Specimen Type: BLOOD SPECIMEN Ordering Facility: [facility] Address: [address] [place] [address]Performed By: #### 95701-7 #### [facility] IA [id number] [address] [place], [place] [address] [place] AMERICASodium [Moles/Vol]140 mmol/LNormal 136-144[facility] HospitalComment on above:Order Comment: Specimen Type: BLOOD SPECIMEN Ordering Facility: [facility] Address: [address] [place], [place] [address]Performed By: #### 79682-2 #### [facility] CLIA [id number] [address] [place] [id number] [place] AMERICAUrea nitrogen [Mass/Vol]16 mg/dL Normal9-24[facility] HospitalComment on above:Order Comment: Specimen Type: BLOOD SPECIMEN Ordering Facility: [facility] Address: [address] [place], [place] [address]Performed By: #### 06287-8 #### [facility] IA [id number] [address] [place], [place] [id number] [place] OF AMERICACBC panel Auto (Bld)on 12-10-2022 Erythrocyte distribution width (RBC) [Ratio]12.6 %Beaqhi33.5-15.0[facility] HospitalComment on above:Order Comment: Specimen Type: BLOOD SPECIMEN Ordering Facility: [facility] Address: [address] [place], [place] [address]Performed By: #### 59305-0 #### [facility] IA [id number] [address] [place] [address] [place] AMERICAHematocrit (Bld) [Volume fraction] 32.7 %Low39.0-51.0[facility] HospitalComment on above:Order Comment: Specimen Type: BLOOD SPECIMEN Ordering Facility: [facility] Address: [address] [place], [place] [address]Performed By: #### 20108-4 #### [facility] IA [id number] [address] [place], [place] [address] [place] AMERICAHemoglobin (Bld) [Mass/Vol]10.9 g/dL Low13.0-17.0[facility] HospitalComment on above:Order Comment: Specimen Type: BLOOD SPECIMEN Ordering Facility: [facility] Address: [address] [place], [place] [address]Performed By: #### 57039-3 #### [facility] IA [id number] [address] [place], [place] [address] [place] OF AMERICAMCH (RBC) [Entitic mass]31.5 pg Lkcnqs80.0-34.0[facility] HospitalComment on above:Order Comment: Specimen Type: BLOOD SPECIMEN Ordering Facility: [facility] Address: [address] [place], [place] [address]Performed By: #### 77705-4 #### [facility] CLIA [id number] [address] [place], [place] [address]MCHC (RBC) [Mass/Vol]33.3 g/dLNormal 30.5-36.0[facility] HospitalComment on above:Order Comment: Specimen Type: BLOOD SPECIMEN Ordering Facility: [facility] Address: [address] [place], [place] [address]Performed By: #### 57040-8 #### [facility] CLIA [id number] [address] [place], [place] [address]MCV (RBC) [Entitic vol]94.5 fLNormal 80.0-100.0[facility] HospitalComment on above:Order Comment: Specimen Type: BLOOD SPECIMEN Ordering Facility: [facility] Address: [address] [place], [place] [address]Performed By: #### 46107-1 #### [facility] CLIA [id number] [address] [place], [place] [address]ucleated RBC (Bld) [#/Vol]10*3/uL Normal<0.01[facility] HospitalComment on above:Order Comment: Specimen Type: BLOOD SPECIMEN Ordering Facility: [facility] Address: [address] [place], [place] [address]Performed By: #### 65058-0 #### [facility] CLIA [id number] [address] [place], [place] [address]Platelet mean volume (Bld) [Entitic vol]9.6 fLNormal9.0-12.7[facility] HospitalComment on above:Order Comment: Specimen Type: BLOOD SPECIMEN Ordering Facility: [facility] Address: [address] [place], [place] [address]Performed By: #### 30024-6 #### [facility] CLIA [id number] [address] [place], [place] [address] [place] AMERICAPlatelets (Bld) [#/Vol]157 10*3/uL Kixwjr740-849Cdyypjvg HospitalComment on above:Order Comment: Specimen Type: BLOOD SPECIMEN Ordering Facility: [facility] Address: [address] [place], [place] [address]Performed By: #### 74241-9 #### [facility] CLIA [id number] [address] [place] [address] [place] AMERICARBC (Bld) [#/Vol]3.46 10*6/uLLow 4.20-6.00[facility] HospitalComment on above:Order Comment: Specimen Type: BLOOD SPECIMEN Ordering Facility: [facility] Address: [address] [place], [place] [address]Performed By: #### 73096-0 #### [facility] CLIA [id number] [address] [place] [address] AMERICAWBC (Bld) [#/Vol]8.16 10*3/uLNormal 3.70-11.00[facility] HospitalComment on above:Order Comment: Specimen Type: BLOOD SPECIMEN Ordering Facility: [facility] Address: [address] [place], [place] [address]Performed By: #### 91906-2 #### [facility] IA [id number] [address] [place], [place] [address] [facility] OF AMERICATHERAPY NTon 35-90-2661AOHMBXR NTHNO ID: [id number] Author: Odilon Madrid PT Service: Physical Therapy Author Type: Physical Therapist Type: Therapy (PT/OT/Speech/Resp) Filed: 12/10/2022 11:20 AM Note Text: PHYSICAL THERAPY MISSED VISIT SERVICE DATE: 12/10/2022 SERVICE TIME: 1109 to 1111 ROOM: [id number] Patient not seen due to Refused Treatment. Pt reported pain levels are too high to attempt therapy. Will f/u as schedule allows and pain improves. SIGNATURE: Odilon Madrid PT PATIENT NAME: Sukhdeep Simental DATE: December 10, 2022 TIME: 11:20 [facility] [id number] HEALTHHNO ID: [id number] Author: Akila Huitron RT(R) Service: Radiology Author [...] BY: RT Jose(R) December 09, 2022 2:01 PMNRiverside Methodist HospitalBasic metabolic 2000 [facility] hospitalon 30-02-3790Srrrv gap [Moles/Vol]6 mmol/LLow9-18[facility] HospitalComment on above: Order Comment: Specimen Type: BLOOD SPECIMEN Ordering Facility: [facility] Address: [address] [place], [place] [address]Performed By: #### 56255-0 #### [facility] CLIA [id number] [address] [place] [address] [place] AMERICACalcium [Mass/Vol]8.5 mg/dLNormal 8.5-10.2[facility] HospitalComment on above:Order Comment: Specimen Type: BLOOD SPECIMEN Ordering Facility: [facility] Address: [address] [place], [place] [address]Performed By: #### 54741-3 #### [facility] CLIA [id number] [address] [place] [address] [place] AMERICAChloride [Moles/Vol]106 mmol/LHigh 97-105[facility] HospitalComment on above:Order Comment: Specimen Type: BLOOD SPECIMEN Ordering Facility: [facility] Address: [address] [place], [place] [address]Performed By: #### 87379-2 #### [facility] CLIA [id number] [address] [place], [place] [address] [place] AMERICACO2 [Moles/Vol]30 mmol/LXcvcsi65-55 [facility] HospitalComment on above:Order Comment: Specimen Type: BLOOD SPECIMEN Ordering Facility: [facility] Address: [address] [place], [place] [address]Performed By: #### 43230-8 #### [facility] IA [id number] [address] [place] [address] [place] AMERICACreatinine [Mass/Vol]1.34 mg/dLHigh 0.73-1.22[facility] HospitalComment on above:Order Comment: Specimen Type: BLOOD SPECIMEN Ordering Facility: [facility] Address: [address] [place], [place] [address]Performed By: #### 51586-2 #### [facility] IA [id number] [address] [place] [address] [place] AMERICACreatinine and Glomerular filtration rate.predicted panel (S/P/Bld)61 mL/min/1.73m???Normal>=60[facility] Comment on above:Order Comment: Specimen Type: BLOOD SPECIMEN Ordering Facility: [facility] Address: [address] [place], [place] [address]Result Comment: Estimated Glomerular Filtration Rate (eGFR) is calculated using the 2020 CKD-EPI cre atinine equation. This equation utilizes serum creatinine, sex, and age as parameters. The creatinine assay has traceable calibration to isotope dilution- mass spectrometry. Refer to KDIGO guidelines for clinical interpretation. In patients with unstable renal function, e.g. those with acute kidney injury, the eGFR may not accurately reflect actual GFR.Performed By: #### 82616-0 #### [facility] CLIA [id number] [address] [place], [place] [address] [place] AMERICAGlucose [Mass/Vol]105 mg/aZAyiw15-49 [facility] HospitalComment on above:Order Comment: Specimen Type: BLOOD SPECIMEN Ordering Facility: [facility] Address: [address] [place], [place] [address]Result Comment: The [place] Diabetes [employer] (ADA) provides guidance for cutoff [...] Standards of Medical Care in Diabetes 2016, [place] [employer]. Diabetes Care. 2016.39(Suppl 1).Performed By: #### 05238-8 #### [facility] CLIA [id number] [address] [place] [address] [place] AMERICAPotassium [Moles/Vol]3.9 mmol/L Normal3.7-5.1[facility] HospitalComment on above:Order Comment: Specimen Type: BLOOD SPECIMEN Ordering Facility: [facility] Address: [address] [place], [place] [address]Performed By: #### 85468-5 #### [facility] CLIA [id number] [address] [place] [address] [place] AMERICASodium [Moles/Vol]142 mmol/LNormal 136-144[facility] HospitalComment on above:Order Comment: Specimen Type: BLOOD SPECIMEN Ordering Facility: [facility] Address: [address] [place], [place] [address]Performed By: #### 13721-8 #### [facility] CLIA [id number] [address] [place], [place] [address] [place] AMERICAUrea nitrogen [Mass/Vol]18 mg/dL Normal9-24[facility] HospitalComment on above:Order Comment: Specimen Type: BLOOD SPECIMEN Ordering Facility: [facility] Address: [address] [place], [place] [address]Performed By: #### 50863-2 #### [facility] CLIA [id number] [address] [place] [address] [facility] CHILDR[facility] OF AMERICACBC panel Auto (Bld)on 12-09-2022 Erythrocyte distribution width (RBC) [Ratio]12.7 %Lbqwak31.5-15.0[facility] HospitalComment on above:Order Comment: Specimen Type: BLOOD SPECIMEN Ordering Facility: [facility] Address: [address] [place], [place] [address]Performed By: #### 72874-0 #### [facility] CLIA [id number] [address] [place] [address] [place] AMERICAHematocrit (Bld) [Volume fraction] 34.1 %Low39.0-51.0[facility] HospitalComment on above:Order Comment: Specimen Type: BLOOD SPECIMEN Ordering Facility: [facility] Address: [address] [place], [place] [address]Performed By: #### 46695-9 #### [facility] CLIA [id number] [address] [place] [address] AMERICAHemoglobin (Bld) [Mass/Vol]11.6 g/dL Low13.0-17.0[facility] HospitalComment on above:Order Comment: Specimen Type: BLOOD SPECIMEN Ordering Facility: [facility] Address: [address] [place], [place] [address]Performed By: #### 73809-7 #### [facility] CLIA [id number] [address] [place] [address] (RBC) [Entitic mass]32.3 pg Wosovr98.0-34.0[facility] HospitalComment on above:Order Comment: Specimen Type: BLOOD SPECIMEN Ordering Facility: [facility] Address: [address] [place], [place] [address]Performed By: #### 65981-7 #### [facility] CLIA [id number] [address] [place] [address] (RBC) [Mass/Vol]34.0 g/dLNormal 30.5-36.0[facility] HospitalComment on above:Order Comment: Specimen Type: BLOOD SPECIMEN Ordering Facility: [facility] Address: [facility] [place], [place] [address]Performed By: #### 83023-2 #### [facility] CLIA [id number] [address] [place] [address] [place] AMERICAMCV (RBC) [Entitic vol]95.0 fLNormal 80.0-100.0[facility] HospitalComment on above:Order Comment: Specimen Type: BLOOD SPECIMEN Ordering Facility: [facility] Address: [address] [place], [place] [address]Performed By: #### 95318-7 #### [facility] CLIA [id number] [address] [place] [address] [place] AMERICANucleated RBC (Bld) [#/Vol]10*3/uL Normal<0.01[facility] HospitalComment on above:Order Comment: Specimen Type: BLOOD SPECIMEN Ordering Facility: [facility] Address: [address] [place], [place] [address]Performed By: #### 54519-8 #### [facility] IA [id number] [address] [place] [address] [place] AMERICAPlatelet mean volume (Bld) [Entitic vol]9.6 fLNormal9.0-12.7[facility] HospitalComment on above:Order Comment: Specimen Type: BLOOD SPECIMEN Ordering Facility: [facility] Address: [address] [place], [place] [address]Performed By: #### 62179-1 #### [facility] IA [id number] [address] [place] [address] [place] AMERICAPlatelets (Bld) [#/Vol]159 10*3/uL Czqvlt105-588Cmnvcwjo HospitalComment on above:Order Comment: Specimen Type: BLOOD SPECIMEN Ordering Facility: [facility] Address: [address] [place], [place] [address]Performed By: #### 35515-1 #### [facility] CLIA [id number] [address] [place], [place] [address] [place] AMERICARBC (Bld) [#/Vol]3.59 10*6/uLLow 4.20-6.00[facility] HospitalComment on above:Order Comment: Specimen Type: BLOOD SPECIMEN Ordering Facility: [facility] Address: [address] [place], [place] [address]Vhymnglbg By: #### 63362-9 #### [facility] IA [id number] [address] [id number] [facility] TUSCALOOSAWBC (Bld) [#/Vol]8.72 10*3/uLNormal 3.70-11.00[facility] HospitalComment on above:Order Comment: Specimen Type: BLOOD SPECIMEN Ordering Facility: [facility] Address: [address] [place], [place] [address]Ltwaohsdl By: #### 46283-5 #### [facility] IA [id number] [address] [place], [place] [address] [facility] PROGon [id number] PROVARGASNO ID: [id number] Author: Abdias Pemberton RN Service: Nursing Author Type: Registered Nurse Type: Nursing Progress Note Filed: 12/09/2022 7:21 PM Note Text: 12/09/2022 0826: hydromorphone DELIVERY DRIVER rate varied. Patient rating pain 8/10 at this time stating oh, its much better than yesterday . 0931: Patient working with PT at this time 1035: Patient resting/sleeping comfortably in bed at this time. 1200: fentaNYL DELIVERY DRIVER ordered. 1345: Patient ambulating in the hallway with nursing staff and . 1402: Patient at radiology for post-op XR 1406: Hydromorphone DELIVERY DRIVER discontinued. While discontinuing the hydromorphone DELIVERY DRIVER, patient made several comments about unused hydromorphone, I can take that medication off your hands. Patient educated that the medication will be properly wasted per protocol. 1407: fentaNYL DELIVERY DRIVER started and Hydromorphone properly wasted per [...] Can't you increase my setting on the DELIVERY DRIVER because I had better pain relief with the Dilaudid pump because I could press the button more frequent? Can you increase the pump settings? [facility] 12-09-2022 THERAPY NTHNO ID: [id number] Author: Abdias Crooks, OT/L Service: Occupational Therapy Author Type: Occupational Therapist Type: Therapy (PT/OT/Speech/Resp) Filed: 12/09/2022 3:30 PM Note Text: Occupational Therapy Evaluation SERVICE DATE: 12/09/2022 SERVICE TIME: 1438 to 1502 ROOM: [place] [address] Total Joint Replacement Discharge Readiness: Cleared from [...] Activity Tolerance, Functional Mobility Impairment, Balance Impaired Cognition/Communication Deficits Responsiveness: Alert, Awake Follows Commands: 3-step [...] Progressing slower than expec (more content not included)...[facility] CenterO ID: [id number] Author: Hannah Mota, PT, DPT Service: Physical Therapy Author Type: Physical Therapist Type: Therapy (PT/OT/Speech/Resp) Filed: 12/09/2022 10:06 AM Note Text: Physical Therapy Treatment SERVICE DATE: 12/09/2022 SERVICE TIME: 930 to 954 ROOM: [place] [address] Total Joint Replacement Discharge Readiness: Cleared from Physical Therapy Recommended Discharge Disposition: Home Anticipated Discharge Needs: Physical Assist at Home Physical Assist at Home for: Cleaning, Laundry, Meals, Stairs, Safety Recommended Discharge Equipment: No equipment needs anticipated PT 6 Clicks Score: 24 Pt agreeable to participate. Reports slight improvement in pain compared to yesterday but relies highly on DELIVERY DRIVER. Pt able to ambulate around unit [...] Stance time decreased, Weight bearing decreased General Deviations/Observations: Briseida decreased, Shuffling Gait, Step length decreased, [...] TREATMENT INTERVENTIONS: Therapy Diagnosis: Reduced mobility-other, Difficulty walking-musculoskeletal Interventions Provided: Therapeutic Activity (50284), Gait Training (55495) Therapeutic Activity (18839) Treatment Minutes: 10 $ Therapeutic Activity (05823) Billed Units: 1 unit Gait Training (27743) Treatment Minutes: 14 $ Gait Training (10386) Billed Units: 1 unit Training AND Education Provided in: Assistive Device Use, Discharge Planning, Edema Management, Exercise Program, Falls Prevention, Expected Functional Level, Handout Issued, Precautions/Restrictions, Positioning, Role of Physical Therapy, Transfers, Curb Step Navigation The Following Therapeutic Skills Were Used: Activity Dosing, Cues for Sequencing/Proper Technique for Activity, Cuing Verbal, Teach-Back for Education Timed Code Treatment (minutes): 24 Skilled Treatment Time (minutes): 24 Please see discipline specific clinical documentation flowsheet for complete details for this therapy (more content not included)...[facility] HospitalXR LUMBAR 2V AP/LATon 54-75-1227DW LUMBAR 2V AP/LAT* * *Final Report* * * DATE OF [...] IMPRESSION: Postoperative and degenerative changes as described. [employer]: COURTNEY Transcribe Date/Time: Dec 09 2022 3:39P Dictated by : DONNY WOO DO This examination was interpreted and the report reviewed and electronically signed by: DONNY WOO DO on Dec 09 2022 3:42PM EST [id number].W. Ruby Memorial HospitalBasic metabolic 2000 panelon 44-74-4318Gypwb gap [Moles/Vol]7 mmol/LLow9-18[facility] HospitalComment on above: Order Comment: Specimen Type: BLOOD SPECIMEN Ordering Facility: [facility] Address: [address] [place], [place] [address]Performed By: #### 71747-8 #### [facility] CLIA [id number] [address] [place] [address] [place] AMERICACalcium [Mass/Vol]8.2 mg/dLLow 8.5-10.2[facility] HospitalComment on above:Order Comment: Specimen Type: BLOOD SPECIMEN Ordering Facility: [facility] Address: [address] [place], [place] [address]Performed By: #### 68367-7 #### [facility] CLIA [id number] [address] [place] [address] [place] AMERICAChloride [Moles/Vol]106 mmol/LHigh 97-105[facility] HospitalComment on above:Order Comment: Specimen Type: BLOOD SPECIMEN Ordering Facility: [facility] Address: [address] [place], [place] [address]Performed By: #### 91615-4 #### [facility] CLIA [id number] [address] [place] [address] [place] AMERICACO2 [Moles/Vol]28 mmol/KTtfbuu83-95 [facility] HospitalComment on above:Order Comment: Specimen Type: BLOOD SPECIMEN Ordering Facility: [facility] Address: [address] [place], [place] [address]Performed By: #### 69972-6 #### [facility] CLIA [id number] [address] [place] [address] [place] AMERICACreatinine [Mass/Vol]1.35 mg/dLHigh 0.73-1.22[facility] HospitalComment on above:Order Comment: Specimen Type: BLOOD SPECIMEN Ordering Facility: [facility] Address: [address] [place], [place] [address]Performed By: #### 62478-5 #### [facility] CLIA [id number] [address] [place] [address] [place] AMERICACreatinine and Glomerular filtration rate.predicted panel (S/P/Bld)60 mL/min/1.73m???Normal>=60[facility] Comment on above:Order Comment: Specimen Type: BLOOD SPECIMEN Ordering Facility: [facility] Address: [address] [place], [place] [address]Result Comment: Estimated Glomerular Filtration Rate (eGFR) is calculated using the 2020 CKD-EPI cre atinine equation. This equation utilizes serum creatinine, sex, and age as parameters. The creatinine assay has traceable calibration to isotope dilution- mass spectrometry. Refer to KDIGO guidelines for clinical interpretation. In patients with unstable renal function, e.g. those with acute kidney injury, the eGFR may not accurately reflect actual GFR.Performed By: #### 56330-7 #### [facility] IA [id number] [address] [place] [place] [id number] [place] AMERICAGlucose [Mass/Vol]139 mg/kZGtnf18-32 [facility] HospitalComment on above:Order Comment: Specimen Type: BLOOD SPECIMEN Ordering Facility: [facility] Address: [address] [id number] Comment: The [place] Diabetes Association (ADA) provides guidance for cutoff [...] Standards of Medical Care in Diabetes 2016, [place] [employer]. Diabetes Care. 2016.39(Suppl 1).Performed By: #### 30600-2 #### [facility] IA [id number] [address] [place], [place] [address] [place] OF AMERICAPotassium [Moles/Vol]3.7 mmol/L Normal3.7-5.1LShelby Memorial HospitalComment on above:Order Comment: Specimen Type: BLOOD SPECIMEN Ordering Facility: [facility] Address: [address] [place] [id number] By: #### 44522-9 #### [facility] IA [id number] [address] [place] [id number] [place] AMERICASodium [Moles/Vol]141 mmol/LNormal 136-144[facility] HospitalComment on above:Order Comment: Specimen Type: BLOOD SPECIMEN Ordering Facility: [facility] Address: [address] [place] [id number] By: #### 83541-9 #### [facility] CLIA [id number] [address] [place], [place] [address] [facility] TUSCALOOSAUrea nitrogen [Mass/Vol]23 mg/dL Normal9-24[facility] HospitalComment on above:Order Comment: Specimen Type: BLOOD SPECIMEN Ordering Facility: [facility] Address: [address] [place] [id number] By: #### 40246-3 #### [facility] IA [id number] [address] [place], [place] [address] [facility] TUSCALOOSACASE MGT INIT ASSESon 77-57-5764BMUQ MGT INIT ASSESHNO ID: [id number] Author: Gloria Toro RN Service: ? Author Type: Registered Nurse Type: Care Mgt Initial Assessment Filed: 12/08/2022 8:48 AM Note Text: CARE MANAGEMENT: ASSESSMENT AND DISCHARGE PLAN SERVICE DATE: December 08, 2022 SERVICE TIME: 8:46 am PCP: Derick Isabel MD Primary Contact: Extended Emergency Contact Information Primary Emergency Contact: Darryl Simental Address: [address] [place] [address] [place] Relation: Spouse Admission Status: Inpatient [...] accomplish the following: Needs Assistance: Transportation to appointments/community;Ambulation Current Services/Equipment Current Post-Acute Service(s): DME Current DME Type: Cane, Rolling walker, Standard walker Discharge Planning Patient Goal(s): Better mobility, Be able to go home, General wellness, Less pain [place] of Choice Explained: [place] of Choice Given: No Reason Not Given: [...] further skilled PT / OT needed at [place]. CM Department will continue to follow until [place]. SIGNATURE: Gloria Toro RN PATIENT NAME: Sukhdeep Simental DATE: December 08, 2022 TIME: 8:46 AM CONTACT #: [phone] HospitalCBC panel Auto (Bld) on [id number] distribution width (RBC) [Ratio]12.8 %Tvvjje62.5-15.0 [facility] HospitalComment on above:Order Comment: Specimen Type: BLOOD SPECIMEN Ordering Facility: [facility] Address: [address] [place], [place] [address]Performed By: #### 72949-4 #### [facility] CLIA [id number] [address] [place] [address] [place] OF AMERICAHematocrit (Bld) [Volume fraction] 34.8 %Low39.0-51.0[facility] HospitalComment on above:Order Comment: Specimen Type: BLOOD SPECIMEN Ordering Facility: [facility] Address: [address] [place], [place] [address]Performed By: #### 04904-9 #### [facility] CLIA [id number] [address] [place], [place] [address] [place] AMERICAHemoglobin (Bld) [Mass/Vol]11.7 g/dL Low13.0-17.0[facility] HospitalComment on above:Order Comment: Specimen Type: BLOOD SPECIMEN Ordering Facility: [facility] Address: [address] [place], [place] [address]Performed By: #### 21150-7 #### [facility] CLIA [id number] [address] [place], [place] [address] [facility] (RBC) [Entitic mass]31.8 pg Sebcdp43.0-34.0[facility] HospitalComment on above:Order Comment: Specimen Type: BLOOD SPECIMEN Ordering Facility: [facility] Address: [address] [place], [place] [address]Performed By: #### 86778-6 #### [facility] CLIA [id number] [address] [place] [address] (RBC) [Mass/Vol]33.6 g/dLNormal 30.5-36.0[facility] HospitalComment on above:Order Comment: Specimen Type: BLOOD SPECIMEN Ordering Facility: [facility] Address: [address] [place], [place] [address]Performed By: #### 74135-5 #### [facility] CLIA [id number] [address] [place] [address] (RBC) [Entitic vol]94.6 fLNormal 80.0-100.0[facility]uther[facility] HospitalComment on above:Order Comment: Specimen Type: BLOOD SPECIMEN Ordering Facility: [facility] Address: [address] [place], [place] [address]Performed By: #### 62089-7 #### [facility] CLIA [id number] [address] [place] [address] RBC (Bld) [#/Vol]10*3/uL Normal<0.01Lutmountain vista medical centeran HospitalComment on above:Order Comment: Specimen Type: BLOOD SPECIMEN Ordering Facility: [facility] Address: [address] [place], [place] [address]Performed By: #### 87183-4 #### [facility] CLIA [id number] [address] [place], [place] [address]Platelet mean volume (Bld) [Entitic vol]9.4 fLNormal9.0-12.7L[facility] HospitalComment on above:Order Comment: Specimen Type: BLOOD SPECIMEN Ordering Facility: [facility] Address: [address] [place], [place] [address]Performed By: #### 92820-6 #### [facility] CLIA [id number] [address] [place] [address] [place] AMERICAPlatelets (Bld) [#/Vol]162 10*3/uL Xgngln035-331Lkesovpr HospitalComment on above:Order Comment: Specimen Type: BLOOD SPECIMEN Ordering Facility: [facility] Address: [address] [place], [place] [address]Performed By: #### 29852-5 #### [facility] CLIA [id number] [address] [place] [address] AMERICARBC (Bld) [#/Vol]3.68 10*6/uLLow 4.20-6.00[facility] HospitalComment on above:Order Comment: Specimen Type: BLOOD SPECIMEN Ordering Facility: [facility] Address: [address] [place], [place] [address]Performed By: #### 87703-9 #### [facility] [place] [id number] [address] [place] [address] STATES AMERICAWBC (Bld) [#/Vol]7.95 10*3/uLNormal 3.70-11.00[facility] HospitalComment on above:Order Comment: Specimen Type: BLOOD SPECIMEN Ordering Facility: [facility] Address: [address] [place], [place] [address]Performed By: #### 58705-8 #### [facility] CLIA [id number] [address] [place], [place] [address] [facility] TUSCALOOSACONSULTon [id number] ID: [id number] Author: Lulu Oviedo MD Service: General Internal [...] Phos Recent Labs 12/08 (more content not included)...[facility] HospitalNURSING PROalex [id number] DAVY ID: [id number] Author: Abdias Pemberton, RN Service: Nursing Author [...] notified of the patient's increased pain after DELIVERY DRIVER was DC'ed earlier and transitioned to PO medications. Hydromorphone DELIVERY DRIVER reordered per Dr. Mathew. 1729: Hydromorphone DELIVERY DRIVER restarted. 1735: Patient assisted by nursing staff to bed and states that his pain has decreased. Patient resting comfortably in bed at this time. 1900: Patient resting comfortably in bed at this time.[facility] THERAPY NTon [id number] NTHNO ID: [id number] Author: Taylor Montoya OTR/Kelly Service: Occupational Therapy Author Type: Occupational Therapist Type: Therapy (PT/OT/Speech/Resp) Filed: 12/08/2022 12:35 PM Note Text: OCCUPATIONAL THERAPY MISSED VISIT SERVICE DATE: 12/08/2022 SERVICE TIME: 1233 to 1233 ROOM: [place] [address] Patient not seen due to Refused Treatment. Patient having a significant amount of pain. Offered patient option of working with OT tomorrow. Pt would prefer OT evaluation tomorrow. SIGNATURE: URSULA Glynn/Kelly PATIENT NAME: Sukhdeep Simental DATE: December 08, 2022 TIME: 12:34 [facility] ID: [id number] Author: Jean-Pierre Lutz, PT, DPT Service: Physical Therapy Author Type: Physical Therapist Type: Therapy (PT/OT/Speech/Resp) Filed: 12/08/2022 8:44 AM Note Text: Physical Therapy Evaluation SERVICE DATE: 12/08/2022 SERVICE TIME: 807 to 830 ROOM: [place] [address] Cleared from Physical Therapy Recommended Discharge Disposition: [...] Stance time decreased, Weight bearing decreased General Deviations/Observations: Antalgic gait, Flexed trunk posture, Wide base [...] Weakness (generalized) Interventions Provided: Evaluation, Gait Training (61101) $ Evaluation-Low (70432) Billed Units: 1 unit Gait Training (72731) Treatment Minutes: 8 $ Gait Training (36071) Billed Units: 1 unit Training AND Education Provided in: Assistive Device Use, Discharge Planning, Edema Management, Exercise Program, Falls Prevention, Expected Functional Level, Handout Issued, Precautions/Restrictions, Positioning, Role of Physical Therapy, Transfers, Curb [...] Simental DATE: December 08, 2022 TIME: 8:44 AMNFormerly [facility] HospitalANES POSTPROC EVALon [id number] POSTPROC EVALHNO ID: [id number] Author: Ankit Orlando MD Service: Anesthesiology Author Type: Anesthesiologist Type: Anesthesia Postprocedure Evaluation Filed: 12/07/2022 3:37 PM Note Text: POST ANESTHESIA EVALUATION NOTE : 1965 Procedure Summary Date: 12/07/22 Room / Location: OR / [facility] OR Anesthesia Start: 737 Anesthesia Stop: 1255 [...] December 07, 2022 TIME: 3:37 PM CSN: [id number] [facility] System PRE-OPon [id number] PRE-OPHNO ID: [id number] Author: Nasim Pruett I, MD Service: Anesthesiology [...] December 07, 2022 TIME: 7:01 AM CSN: [id number] OP NOTon 12-07-2022 BRIEF OP NOTHNO ID: [id number] Author: Edd Mathew MD Service: Neurosurgery Author Type: Physician Type: Brief Op Note Filed: 12/07/2022 12:49 PM Note Text: BRIEF OPERATIVE / PROCEDURE NOTE LOG ID: [id number] SURGERY/PROCEDURE DATE: 12/07/2022 INCISION/PROCEDURE START TIME: 8:09 AM INCISION CLOSE/PROCEDURE END TIME: 12:34 PM SURGEON(S)/PROCEDURALIST(S) AND ETHYLENE PLANT OPERATOR(S): Surgeon(s) and Role: * Edd Mathew MD [...] Simental DATE: December 07, 2022 TIME: 12:31 [facility] HospitalN[facility] PROGon [id number] [facility] ID: [id number] Author: Livia Calix RN Service: ? Author Type: Registered Nurse Type: Nursing Progress Note Filed: 12/07/2022 2:48 PM Note Text: Transfer Note: PATIENT NAME: Sukhdeep Simental Patient Location: [address]/[place] [address] Room: [place] [address] Patient transferred into room/unit 503-2 in stable condition. Patient educated on use of call light, fall precautions, and incentive spirometer. No futher actions taken at this time. Will continue to monitor and check with patient.[facility] [id number] NOHNO ID: [id number] Author: Edd Mathew MD Service: Neurosurgery Author Type: Physician Type: Operative Report Filed: 12/07/2022 3:54 PM Note Text: OPERATIVE/PROCEDURE REPORT LOG ID: [id number] SURGERY/PROCEDURE DATE: 12/07/2022 INCISION/PROCEDURE START TIME: 8:09 AM INCISION CLOSE/PROCEDURE END TIME: 12:34 PM SURGEON(S)/PROCEDURALIST(S) AND ETHYLENE PLANT OPERATOR(S): Surgeon(s) and Role: * Edd Mathew MD [...] and sized at a 10 mm. The Nomios system was the instrumentation system used. Local [...] drill was used to make a small harbor pilot hole. The gear shift along [...] Implant Name Type Inv. Item Serial No. .Net Programmer Lot No. LRB No. Used Action StartappOSS [id number] BIOACTIVE BONE GRAFT SUBSTITUTE 5.0CUB CM Implant [place] [id number] N/A 1 Implanted CAGE TRITANIUM 6D [id number] SPINAL STERILE LATEX FREE LUMBAR POSTERIOR - [id number] Implant CAGE TRITANIUM 6D [id number] SPINAL STERILE LATEX FREE LUMBAR POSTERIOR [place] SPINE T9H8 N/A 1 Implanted CAGE TRITANIUM 6D [id number] SPINAL STERILE LATEX FREE LUMBAR POSTERIOR - [id number] Implant CAGE TRITANIUM 6D [id number] (more content not included)... [facility] HospitalXR LUMBAR 2V AP/LATon 91-98-9070TI LUMBAR 2V AP/LAT* * *Final Report* * * DATE OF [...] examination for surgical planning and documentation. . Laborer Ammunition Assembly: PSCB Transcribe Date/Time: Dec 07 2022 3:13P Dictated by : DONNY WOO DO This examination was interpreted and the report reviewed and electronically signed by: DONNY WOO DO on Dec 07 2022 3:15PM EST [id number] Methodist HospitalXR LUMBAR 2V AP/LAT* * *Final Report* * * DATE OF [...] Intraoperative examination for surgical planning and documentation. Laborer Ammunition Assembly: COURTNEY Transcribe Date/Time: Dec 07 2022 2:43P Dictated by : DONNY WOO DO This examination was interpreted and the report reviewed and electronically signed by: DONNY WOO DO on Dec 07 2022 2:46PM EST [id number].W. Ruby Memorial HospitalXR LUMBAR 2V AP/LAT* * *Final Report* * * DATE OF [...] examination for surgical planning and documentation. . Laborer Ammunition Assembly: COURTNEY Transcribe Date/Time: Dec 07 2022 2:37P Dictated by : DONNY WOO DO This examination was interpreted and the report reviewed and electronically signed by: DONNY WOO DO on Dec 07 2022 2:40PM EST [id number].W. Ruby Memorial HospitalCNPNon 19-06-3879JLXQCvdllwfdq (NIQ) SUKHDEEP SIMENTAL ([id number]) 1965 M Date Time Provider Department 11/29/22 EDD MATHEW During your visit today, we recorded the following information about you: Moriah Ferguson 11/29/2022 9:50 AM Signed Patient called regarding a C/9 being filed for his Dec 07 surgery. He spoke to his [facility] contact and they said nothing has been filed yet. Please update patient. Juan Pablo Nova RN 11/29/2022 10:27 AM Signed C9 sent to provider for signature. Awaiting signature. Juan Pablo Nova RN 11/29/2022 12:20 PM Signed Signed C9 sent to [facility] and [facility]. Faxed verifications received. Kathe Lezama 12/05/2022 [...] that the information was submitted to the Heel Nailing Machine Operator for review and does take up to 5 business days for a decision. Juan Pablo Nova, BRETT 12/05/2022 1:16 PM Signed Spoke with patient. Informed case is still on for Saturday and that I spoke with Mitra. Patient appreciative of call. Ekaterina Rondon 12/06/2022 11:34 AM Addendum Mitra called from [facility], regarding patient surgery tomorrow. Surgery has been approved based on what it was shown on the medical record. Mitra wanted a called back # [phone] Ekaterina Rondon 12/06/2022 11:35 AM Signed Received [employer] workers compensation forms. Scan in patient chart for review. Juan Pablo Nova, BRETT 12/06/2022 1:09 PM Signed Called Mitra with [...] Date Reviewed: 11/21/2022 Reviewed by: Maite Galloway APRN.TOOL MECHANIC - Fully Assessed Reason for Visit: Bwc [...] Encounter Status:Closed by JUAN PABLO NOVA on 11/29/22NormalCTrinity Health System West Campus W Auto Differential panel (Bld)on 54-29-2793Mhlesaypj (Bld) [#/Vol] 0.04 10*3/uLNormal<0.11COhioHealth on above:Order Comment: Specimen Type: BLOOD SPECIMENOrdering Facility: [facility] Address:[address] [place], [place] [address]Performed By: #### 88109-1 ####[facility]IA [id number] [place] [address] [place] AMERICABasophils/100 WBC (Bld)0.8 % NormalGerman Hospital on above:Order Comment: Specimen Type: BLOOD SPECIMENOrdering Facility: [facility] Address:[address] [place], [place] [address]Performed By: #### 99664-1 ####[facility] LABCLIA [id number] [place] [address] [place] AMERICADifferential cell count method Nom (Bld)AutoNormal [facility] on above:Order Comment: Specimen Type: BLOOD SPECIMENOrdering Facility: [facility] Address:[address] [place], [place] [address]Performed By: #### 67759-0 ####[facility] LABCLIA [id number] [place] [address] [place] AMERICAEosinophils (Bld) [#/Vol]0.11 10*3/uLNormal<0.46[facility] on above:Order Comment: Specimen Type: BLOOD SPECIMENOrdering Facility: [facility] Address:[address] [place], [place] [address]Performed By: #### 02003-5 ####[facility] LABCLIA [id number] [place] [address] [place] AMERICAEosinophils/100 WBC (Bld)2.1 %NormalKettering Health Troy Comment on above:Order Comment: Specimen Type: BLOOD SPECIMENOrdering Facility: [facility] Address:[address] [place] [address] Performed By: #### 80680-6 ####[facility] LABIA [id number] [place] [address] [place] Erythrocyte distribution width (RBC) [Ratio]12.4 %Dhtcod08.5-15.0[facility] on above:Order Comment: Specimen Type: BLOOD SPECIMENOrdering Facility: [facility] Address:[address] [place], [place] [address]Performed By: #### 87891-1 ####[facility] LABIA [id number] [place] [address] [place] AMERICAHematocrit (Bld) [Volume fraction]42.9 %Kxcfhz75.0-51.0 [facility] on above:Order Comment: Specimen Type: BLOOD SPECIMENOrdering Facility: [facility] Address:[address] [place], [place] [address]Performed By: #### 43001-5 ####[facility] LABIA [id number] [place] [address] [place] AMERICAHemoglobin (Bld) [Mass/Vol]14.5 g/iPTvbyie65.0-17.0[facility] on above:Order Comment: Specimen Type: BLOOD SPECIMENOrdering Facility: [facility] Address:[address] [place], [place] [address]Performed By: #### 79412-7 ####[facility] LABCLIA [id number] [place] [address] [place] AMERICAImmature granulocytes (Bld) [#/Vol]10*3/uLNormal<0.10Kettering Health TroyComment on above:Order Comment: Specimen Type: BLOOD SPECIMENOrdering Facility: [facility] Address:[address] [place], [place] [address]Performed By: #### 99751-8 ####[facility] LABCLIA [id number] [place] [address] [place] AMERICAImmature granulocytes/100 WBC (Bld)0.4 %NormalGerman Hospital on above:Order Comment: Specimen Type: BLOOD SPECIMENOrdering Facility: [facility] Address:[address] [place], [place] [address]Performed By: #### 87781-4 ####[facility] LABCLIA [id number] [place] [address] [place] Lymphocytes (Bld) [#/Vol]1.45 10*3/uLNormal1.00-4.00[facility] Comment on above:Order Comment: Specimen Type: BLOOD SPECIMENOrdering Facility: [facility] Address:[address] [place] [address] Performed By: #### 95806-7 ####[facility] LABCLIA [id number] [place] [address] [place] Lymphocytes/100 WBC (Bld)27.4 %NormalGerman Hospital on above: Order Comment: Specimen Type: BLOOD SPECIMENOrdering Facility: [facility] Address:[address] [place], [place] [address]Performed By: #### 09355-4 ####[facility] LABCLIA [id number] [address] (RBC) [Entitic mass]31.7 tgCfrvva31.0-34.0[facility] on above:Order Comment: Specimen Type: BLOOD SPECIMENOrdering Facility: [facility] Address:[address] [place], [place] [address]Performed By: #### 93644-0 ####[facility] LABCLIA [id number] [address] (RBC) [Mass/Vol] 33.8 g/iHVbpuqd45.5-36.0[facility] on above:Order Comment: Specimen Type: BLOOD SPECIMENOrdering Facility: [facility] Address:[address] [place], [place] [address]Performed By: #### 65556-0 ####[facility] LABCLIA [id number] [address] (RBC) [Entitic vol]93.7 mAKojvwa75.0-100.0[facility] on above:Order Comment: Specimen Type: BLOOD SPECIMENOrdering Facility: [facility] Address:[address] [place], [place] [address]Performed By: #### 46144-2 ####[facility] LABCLIA [id number] [place] [address] [place] AMERICAMonocytes (Bld) [#/Vol]0.49 10*3/uLNormal<0.87[facility] on above:Order Comment: Specimen Type: BLOOD SPECIMENOrdering Facility: [facility] Address:[address] [place], [place] [address]Performed By: #### 33505-8 ####[facility] LABCLIA [id number] [place] [address] [place] AMERICAMonocytes/100 WBC (Bld)9.2 %NormalGerman Hospital on above:Order Comment: Specimen Type: BLOOD SPECIMENOrdering Facility: [facility] Address:[address] [place], [place] [address]Performed By: #### 05249-8 ####[facility] LABCLIA [id number] [place] [address] [place] AMERICANeutrophils (Bld) [#/Vol]3.19 10*3/uLNormal1.45-7.50[facility] on above:Order Comment: Specimen Type: BLOOD SPECIMENOrdering Facility: [facility] Address:[address] [place], [place] [address]Performed By: #### 57824-4 ####[facility] LABCLIA [id number] [place] [address] [place] AMERICANeutrophils/100 WBC (Bld)60.1 % NormalGerman Hospital on above:Order Comment: Specimen Type: BLOOD SPECIMENOrdering Facility: [facility] Address:[address] [place], [place] [address]Performed By: #### 57491-8 ####[facility] LABCLIA [id number] [place] [address] [place] AMERICANucleated RBC (Bld) [#/Vol]10*3/uLNormal<0.01[facility] on above:Order Comment: Specimen Type: BLOOD SPECIMENOrdering Facility: [facility] Address:[address] [place], [place] [address]Performed By: #### 26161-7 ####[facility] LABCLIA [id number] [place] [address] [place] AMERICANucleated RBC/100 WBC (Bld) [Ratio]0.0 /100 WBCNormalCOhioHealth on above:Order Comment: Specimen Type: BLOOD SPECIMENOrdering Facility: [facility] Address:[address] [place], [place] [address]Performed By: #### 15766-2 ####[facility] LABCLIA [id number] [place] [address] [place] AMERICAPlatelet mean volume (Bld) [Entitic vol]9.4 fLNormal9.0-12.7 [facility] on above:Order Comment: Specimen Type: BLOOD SPECIMENOrdering Facility: [facility] Address:[address] [place] [phone] By: #### 87139-5 ####[facility] LABCLIA [id number] [place] [address] [place] AMERICAPlatelets (Bld) [#/Vol]222 10*3/oQWqmrie728-348FtvmuwveiGerman Hospital on above:Order Comment: Specimen Type: BLOOD SPECIMENOrdering Facility: [facility] Address:[address] [place] [phone] By: #### 83582-4 ####[facility] LABCLIA [id number] [place] [address] [place] RBC (Bld) [#/Vol]4.58 10*6/uLNormal4.20-6.00[facility] on above:Order Comment: Specimen Type: BLOOD SPECIMENOrdering Facility: [facility] Address:[address] [place] [phone] By: #### 53628-7 ####[facility] LABCLIA [id number] [place] [address] [place] AMERICAWBC (Bld) [#/Vol]5.30 10*3/uLNormal3.70-11.00[facility] on above:Order Comment: Specimen Type: BLOOD SPECIMENOrdering Facility: [facility] Address:[address] [place] [phone] By: #### 06585-7 ####[facility] LABCLIA [id number] [address] OF M[facility]UTAN HOSPITALCONFIRM BLOOD TYPEon 11-21-2022 ABOANormalCOhioHealth on above:Order Comment: Specimen Type: BLOOD SPECIMENOrdering Facility: [facility] Address:[address] [place], [place] [address]Performed By: #### CONABO ####CC [facility] BLOOD BANKCLIA [id number] [address] OF M[facility] RUTAN HOSPITALRh Nom (Bld)NegativeNormalCOhioHealth on above: Order Comment: Specimen Type: BLOOD SPECIMENOrdering Facility: [facility] Address:[address] [place], [place] [address]Performed By: #### CONABO ####CC [facility] BLOOD BANKCLIA [id number] [address] OF M[facility] RUTAN HOSPITALComprehensive metabolic 2000 panelon 93-18-2764Xtiznqe [Mass/Vol]4.3 g/dLNormal3.9-4.9COhioHealth on above:Order Comment: Specimen Type: BLOOD SPECIMENOrdering Facility: [facility] Address:[address] [place], [place] [address]Performed By: #### 80900-0 ####[facility] LABCLIA [id number] [place] [address] [place] ALP [Catalytic activity/Vol]68 U/TNqrvct18-834ZbapqmjinGerman Hospital on above:Order Comment: Specimen Type: BLOOD SPECIMENOrdering Facility: [facility] Address:[address] [place] [address] Performed By: #### 85752-4 ####[facility] LABCLIA [id number] [place] [address] [place] ALT [Catalytic activity/Vol]16 U/RPvsmvz08-35YjgglowdvGerman Hospital on above:Order Comment: Specimen Type: BLOOD SPECIMENOrdering Facility: [facility] Address:[address] [place], [place] [address] Performed By: #### 45009-2 ####[facility] LABCLIA [id number] [place] [address] [place] Anion gap [Moles/Vol]10 mmol/LNormal9-18[facility] on above:Order Comment: Specimen Type: BLOOD SPECIMENOrdering Facility: [facility] Address:[address] [place], [place] [address]Performed By: #### 11172-3 ####[facility] LABCLIA [id number] [place] [address] [place] AMERICAAST [Catalytic activity/Vol]21 U/QBpmqel29-16ZefvxrylfGerman Hospital on above:Order Comment: Specimen Type: BLOOD SPECIMENOrdering Facility: [facility] Address:[address] [place], [place] [address]Performed By: #### 46464-8 ####[facility] LABCLIA [id number] [place] [address] [place] AMERICABilirubin [Mass/Vol] 0.5 mg/dLNormal0.2-1.3COhioHealth on above:Order Comment: Specimen Type: BLOOD SPECIMENOrdering Facility: [facility] Address:[address] [place] [address]Performed By: #### 83890-6 ####[facility] LABCLIA [id number] [place] [address] [place] OF AMERICACalcium [Mass/Vol]9.9 mg/dLNormal 8.5-10.2COhioHealth on above:Order Comment: Specimen Type: BLOOD SPECIMENOrdering Facility: [facility] Address:[address] [place], [place] [address]Performed By: #### 85677-2 ####[facility] LABCLIA [id number] [place] [address] [place] AMERICAChloride [Moles/Vol]106 mmol/YDill10-914BuavqqilwGerman Hospital on above:Order Comment: Specimen Type: BLOOD SPECIMENOrdering Facility: [facility] Address:[address] [place], [place] [address]Performed By: #### 14573-2 ####[facility] LABCLIA [id number] [place] [address] [place] AMERICACO2 [Moles/Vol]27 mmol/EWwakon55-78AvgrtzjerKettering Health Troy Comment on above:Order Comment: Specimen Type: BLOOD SPECIMENOrdering Facility: [facility] Address:[address] [place] [address] Performed By: #### 18610-9 ####[facility] LABIA [id number] [place] [address] [place] Creatinine [Mass/Vol]1.22 mg/dLNormal0.73-1.22[facility] on above:Order Comment: Specimen Type: BLOOD SPECIMENOrdering Facility: [facility] Address:[address] [place] [address] Performed By: #### 65603-2 ####[facility] LABIA [id number] [place] [address] [place] Creatinine and Glomerular filtration rate.predicted panel (S/P/Bld)68 mL/min/1.73m???Normal>=60[facility] on above:Order Comment: Specimen Type: BLOOD SPECIMENOrdering Facility: [facility] Address:[address] [place], [place] [address]Result Comment: Estimated Glomerular Filtration Rate (eGFR) is calculated using the 2020 CKD-EPI creatinine equation. This equation utilizes serum creatinine, sex, and age as parameters. The creatinine assay has traceable calibration to isotope dilution- mass spectrometry. Refer to KDIGO guidelines for clinical interpretation. In patients with unstable renal function, e.g. those with acute kidney injury, the eGFR may not accurately reflect actual GFR.Performed By: #### 31931-5 ####[facility] LABCLIA [id number] [place] [address] [place] AMERICAGlucose [Mass/Vol]111 mg/dLHigh 74-99[facility] on above:Order Comment: Specimen Type: BLOOD SPECIMENOrdering Facility: [facility] Address:[address] [place], [place] [address]Result Comment: The [place] Diabetes Association (ADA) provides guidance for cutoff values for fasting glucose and random glucose. The ADA defines fasting as no caloric intake for at least 8 hours. F asting plasma glucose results between 100 to 125 [...] Standards of Medical Care in Diabetes 2016, [place] [employer] Association. Diabetes Care. 2016.39(Suppl 1).Performed By: #### 43707-2 ####[facility] LABIA [id number] [place] [address] [place] AMERICAPotassium [Moles/Vol]4.2 mmol/L Normal3.7-5.1COhioHealth on above:Order Comment: Specimen Type: BLOOD SPECIMENOrdering Facility: [facility] Address:[address] [place], [place] [address]Performed By: #### 51128-1 ####[facility] LABIA [id number] [place] [id number] [place] AMERICAProtein [Mass/Vol]7.0 g/dLNormal6.3-8.0[facility] on above:Order Comment: Specimen Type: BLOOD SPECIMENOrdering Facility: [facility] Address:[address] [place], [place] [address]Performed By: #### 51213-3 ####[facility] LABCLIA [id number] [place] [address] [place] AMERICASodium [Moles/Vol]143 mmol/UDawypv268-844SojyrmfliGerman Hospital on above:Order Comment: Specimen Type: BLOOD SPECIMENOrdering Facility: [facility] Address:[address] [place], [place] [address]Performed By: #### 61703-9 ####[facility] LABCLIA [id number] [place] [address] [place] Urea nitrogen [Mass/Vol]22 mg/dLNormal9-24[facility] on above:Order Comment: Specimen Type: BLOOD SPECIMENOrdering Facility: [facility] Address:[address] [place], [place] [address]Performed By: #### 25825-0 ####[facility] LABCLIA [id number] [place] [address] [place] SYMVSRFXAZ29jl 11-21-2022 NNL90Ugpkewgevhs Rate : 65 BPM Atrial Rate : 65 BPM P-R Interval : 180 ms QRS Duration : 98 ms Q-T Interval : 440 ms QTC Calculation(Bazett) : 457 ms Calculated P [place] : 0 degrees Calculated R [place] : -10 degrees Calculated T [place] : 49 degrees NORMAL SINUS RHYTHM NORMAL ECG Confirmed by SHANIA RESTREPO M.D. (Dick) on 11/22/2022 12:00:34 PM NAME : SUKHDEEP SIMENTAL PID : [id number] : 1965 Gender : Male Race : ORD : Procedure Date : Nov 21 2022 10:59:49 Edit Date : Nov 22 2022 12:00:38 Diagnosis: NORMAL SINUS RHYTHM NORMAL ECG Confirmed by SHANIA RESTREPO M.D. (Dick) on 11/22/2022 12:00:34 PM Test Reason : SURGERY Location : [facility] : [facility] Overread By : SHANIA RESTREPO M.D. Edited By : SHANIA RESTREPO M.D. Referred By : EDD MATHEW Acquired by : LOLIS,[facility] PHYSICALon 66-22-0993ZIOASTS PHYSICALHNO ID: [id number] Author: Maite Galloway APRN.TOOL MECHANIC Service: ? Author Type: Nurse Practitioner Type: [...] or muscle pain. Skin: (more content not included)...NormalKettering Health TroyHbA1c (Bld) on 08-12-9888Qjkkcdk glucose Estimated from glycated hemoglobin (Bld) [Mass/Vol] 111 mg/dLNormRegency Hospital Cleveland East on above:Order Comment: Specimen Type: BLOOD SPECIMENOrdering Facility: [facility] Address:[address] [place], [place] [address]Result Comment: eAG: (Estimated average glucose) is a calculated value from HgbA1c and is client representative of the average blood glucose level in the last 2-3 month period.Performed By: #### 91164-6 ####[facility] LABCLIA [id number] [address] ST[address]ETHbA1c (Bld) [Mass fraction]5.5 %Normal4.3-5.6COhioHealth on above:Order Comment: Specimen Type: BLOOD SPECIMENOrdering Facility: [facility] Address:[address] [place], [place] [address]Result Comment: [place] Diabetes Association guidelines indicate that patients with HgbA1c in the range 5.7-6.4% are at increased risk for development of diabetes, and intervention by lifestyle modification may be beneficial. HgbA1c greater or equal to 6.5% is considered diagnostic of diabetes.Performed By: #### 00229-2 ####[facility] LABCLIA [id number] [address] OF [facility] HOSPITALTYPE AND SCREEN,30 DAYon 25-73-3141WUAQWwfoguLzoigjjvdKettering Health Preble on above:Order Comment: Specimen Type: BLOOD SPECIMENOrdering Facility: [facility] Address:[address] [place], [place] [address]Performed By: #### [id number] ####[facility] BLOOD BANKCLIA [id number] [address]ETHISTORICAL AB SCR STATUSNegativeNormalCOhioHealth on above:Order Comment: Specimen Type: BLOOD SPECIMENOrdering Facility: [facility] Address:[address] [place], [place] [address]Performed By: #### [id number] ####[facility] MA[facility] BLOOD BANKCLIA [id number] [address] AMERICARh Nom (Bld)NegativeNormalClevelCatawba Valley Medical CenterComforest health medical center on above: Order Comment: Specimen Type: BLOOD SPECIMENOrdering Facility: [facility] Address:[address] [place], [place] [address]Performed By: #### [id number] ####[facility] MA[facility] BLOOD BANKCLIA [id number] [address] OF [facility] HOSPITALCT ABD/PELVIS WO CONon 07-06-2022 CT ABD/PELVIS WO CONEXAMINATION: CT ABD/PELVIS WO CON, 07/06/2022 12:03 PM [...] Electronically authenticated by: OBIE TSE Date: 2022-07-06 13:19NormWadsworth-Rittman Hospitale [facility] HospitalPTH INTACTon 58-44-6088SZA, Ljukxc96 pg/nRCqvtes07-56Vkm [facility] HospitalComment on above:Performed By: #### PT #### [facility] [address] [place] [address] Dr. Hugh LandisFERRITINon 96-69-4506Edtdoxaq [Mass/Vol]96.0 ng/mLNormal 26.0-388.0The [facility] HospitalComment on above:Performed By: #### PT #### [facility] [address] [place] [address] Dr. Hugh LandisHEMOGRAM AND PLATELon 42-24-6824Pdjqbktrqq (Bld) [Volume fraction]39.1 %Critically low42.0-54.0The [facility] HospitalComment on above: Performed By: #### HH #### [facility] [address] [place] [address] Dr. Hugh LandisHemoglobin (Bld) [Mass/Vol]13.3 g/dLCritically low14.0-18.0The [facility] HospitalComment on above:Performed By: #### HH #### [facility] [address] [place] [address] Dr. Hugh LandisWEILL CORNELL [facility] (RBC) [Entitic mass]30.5 hoBglxwr26.9-34.0The [facility] HospitalComment on above:Performed By: #### HH #### [facility] [address] [place] [address] Dr. Hugh LandisMEDISYS HEALTH NETWORK (RBC) [Mass/Vol]34.0 g/qLStmnjb34.9-35.2The [facility] HospitalComment on above:Performed By: #### HH #### [facility] [address] [place] [address] Dr. Hugh BenitezV (RBC) [Entitic vol]89.7 eGKhcaen52.0-94.0The [facility] HospitalComment on above:Performed By: #### HH #### [facility] [address] [place] [address] Dr. Hugh LandisPLT230 103/vsZfwtmb643-008Mvw [facility] HospitalComment on above: Performed By: #### HH #### [facility] [address] [place] [address] Dr. Hugh LandisRBC4.36 106/ulCritically low4.70-6.10The [facility] HospitalComment on above:Performed By: #### HH #### [facility] [address] [place] [address] Dr. Hugh LandisWBC4.8 103/ulNormal4.0-11.0The [facility] HospitalComment on above: Performed By: #### HH #### [facility] [address] [place] [address] Dr. Hugh Danielle AND TIBCon 06-11-2022% HMMQKTSYJS23.0 %NormalThe [facility] HospitalComment on above:Performed By: #### PT #### [facility] [address] [place] [address] Dr. Hugh Danielle [Mass/Vol]137.0 ug/cEHpzeum09.0-175.0The [facility] Comment on above:Performed By: #### PT #### [facility] [address] [place] [address] Dr. Hugh LandisTIBC NMXKYW327.0 ug/dLCritically isa877.0-450.0The [facility] HospitalComment on above:Performed By: #### PT #### [facility] [address] [place] [address] Dr. Hugh LandisMAGNESIUMon 27-48-7538Rvwccryip [Mass/Vol]1.9 mg/dLNormal1.8-2.4 The [facility] HospitalComment on above:Performed By: #### PTT #### [facility] [address] [place] [address] [address] Hugh Silver FUNCTION PANELon 03-72-2665Fzadacp [Mass/Vol]3.5 g/dLNormal 3.4-5.0The [facility] HospitalComment on above:Performed By: #### PTT #### [facility] [address] [place] [address] [address] Hugh LandisCalcium [Mass/Vol]9.5 mg/dLNormal8.5-10.1The [facility] Comment on above:Performed By: #### PTT #### [facility] [address] [place] [address] [address] Hugh LandisChloride [Moles/Vol]107 mmol/VEfsaoo89-133Jyp [facility] Comment on above:Performed By: #### PTT #### [facility] [address] [place] [address] Dr. Hugh LandisCO2 [Moles/Vol]30.9 mmol/QZiztjd34.0-32.0The [facility] Comment on above:Performed By: #### PTT #### [facility] [address] [place] [address] Dr. Hugh LandisCreatinine [Mass/Vol]1.41 mg/dLCritically high0.70-1.30The [facility] HospitalComment on above:Performed By: #### PTT #### [facility] [address] [place] [address] Dr. Hugh PaniaguaGFR-AF LITHUANIAN>60Normal>=60The [facility] HospitalComment on above:Performed By: #### PTT #### [facility] [address] [place] [address] Dr. Hugh PaniaguaGFR-NON AF GWVGKFCN11 mL/min/1.07f6Syxajrpdyn low>=60The [facility] HospitalComment on above:Performed By: #### PTT #### [facility] [address] [place] [address] Dr. Hugh LandisGlucose [Mass/Vol]118 mg/dLCritically lyaw71-233Xpi [facility] HospitalComment on above:Performed By: #### PTT #### [facility] [address] [place] [address] [address] Hugh LandisPhosphate [Mass/Vol]3.0 mg/dLNormal2.6-4.7The [facility] Comment on above:Performed By: #### PTT #### [facility] [address] [place] [address] [address] Hugh LandisPotassium [Moles/Vol]3.9 mmol/LNormal3.5-5.1[facility] Comment on above:Performed By: #### PTT #### [facility] [address] [place] [address] [address] Hugh LandisSodium [Moles/Vol]143 mmol/EZzhuai317-014Kgw [facility] Comment on above:Performed By: #### PTT #### [facility] [address] [place] [address] Dr. Hugh LandisUrea nitrogen [Mass/Vol]19.0 mg/dLCritically high7.0-18.0The [facility] HospitalComment on above:Performed By: #### PTT #### [facility] [address] [place] [address] Dr. Hugh Campbell RANDOM W/MICROSCOPICon 67-82-5807HECUCGTYVDKR SEENNormalNONE SEENThe [facility] HospitalComment on above:Performed By: #### PT #### [facility] [address] [place] [address] [address] Hugh LandisBilirubin Ql (U)NegativeNormalNEGATIVEFlower Hospital Comment on above:Performed By: #### PT #### [facility] [address] [place] [address] [address] Hugh LandisCASTNONE SEENNormalNONE SEENFlower HospitalComment on above:Performed By: #### PT #### [facility] [address] [place] [address] Dr. Hugh LandisClarity (U)CLEARNormalCLEARThe [facility] HospitalComment on above: Performed By: #### PT #### [facility] [address] [place] [address] Dr. Hugh Haganlor (U)YELLOWNormalYELLOWFlower HospitalComment on above: Performed By: #### PT #### [facility] [address] [address] [address] Hugh LandisCrystals LM Nom (Urine sed)NONE SEENNormalNONE SEENFlower HospitalComment on above:Performed By: #### PT #### [facility] [address] [place] [address] [address] Reese ChangEpithelial cells LM Ql (Urine sed)FEWAbnormalNONE SEEN /RAREFlower HospitalComment on above:Performed By: #### PT #### [facility] [address] [place] [address] Dr. Hugh LandisGlucose Ql (U)NegativeNormalNEGATIVEFlower HospitalComment on above:Performed By: #### PT #### [facility] [address] [place] [address] Dr. Hugh LandisHemoglobin Ql (U)NegativeNormalNEGUpper Valley Medical Center on above:Performed By: #### PT #### [facility] [address] [place] [address] Dr. Hugh LandisKetones Ql (U)TRACEAbnormalNEGATIVEFlower HospitalComment on above:Performed By: #### PT #### [facility] [address] [place] [address] [address] Hugh LandisLEUKOCYTESNegativeNormalNEGATIVEFlower HospitalComforest health medical center on above:Performed By: #### PT #### [facility] [address] [place] [address] [address] Hugh LandisMUCOUSMODERATEAbnormalNONE SEENFlower HospitalComforest health medical center on above:Performed By: #### PT #### [facility] [address] [place] [address] Dr. Hugh LandisNitrite Ql (U)NegativeNormalNEGATIVEFlower HospitalComment on above:Performed By: #### PT #### [facility] [address] [place] [address] [address] Hugh Quintero (U)5.0 [pH]Normal5-9The [facility] HospitalComment on above: Performed By: #### PT #### [facility] [address] [place] [address] Dr. Hugh LandisRBCNONE SEENAbnormal0-2The [facility] HospitalComment on above: Performed By: #### PT #### [facility] [address] [place] [address] Dr. Hugh LandisSPEC GRAVITY1.545Tkermf7.005-<=1.025The [facility] HospitalComment on above:Performed By: #### PT #### [facility] [address] [place] [address] Dr. Hugh Campbell PROTEINTRACENormalNEGATIVE/ TRACEThe [facility] HospitalComment on above:Performed By: #### PT #### [facility] [address] [place] [address] Dr. Hugh Lopezbilinogen Qn (U)0.2 {[place]ahiana'U}/dLNormal0.2 - 1.0The [facility] HospitalComment on above:Performed By: #### PT #### [facility] [address] [place] [address] Dr. Hugh LandisWBCNONE SEENNormalNONE SEENThe [facility] HospitalComment on above: Performed By: #### PT #### [facility] [address] [place] [address] Dr. Hugh LandisURIC ACID SERUMon 90-48-6404Tkqcc [Mass/Vol]7.5 mg/dLCritically high3.5-7.2The [facility] HospitalComment on above:Performed By: #### PTT #### [facility] [address] [place] [address] Dr. Hugh LandisVITAMIN D 25 OHon 00-82-1489XBI D 25-OH35.0 ng/mLNormalThe [facility] HospitalComment on above:Performed By: #### PT #### [facility] [address] [place] [address] Dr. Hugh Petit RANGESSEPolo [facility], IncComment on above: Result Comment: <20 ng/mL Vit D deficient 20 - <30 ng/mL Vit D insufficient 30 - 100 ng/mL Vit D sufficient >100 ng/mL Potential ToxicityPerformed By: #### PT #### [facility] [address] [place] [address] Dr. Hugh Green 44-58-3388JHA Coag (PPP) [Relative time]1.11 {INR} NormalWVUMedicine Harrison Community Hospital on above:Performed By: #### PT #### [facility] [address] [place] [address] Dr. Hugh Vee GUIDELINESSEE [facility], IncComment on above:Result Comment: DESIRED INR: 2.0 - 3.0 CONDITIONS NOT LISTED BELOW 2.5 - 3.5 FOR PROSTHETIC HEART VALVE REPLACEMENT 2.5 - 3.5 RECURRENT THROMBOSIS Performed By: #### PT #### [facility] [address] [place] [address] Dr. Hugh LandisPT Coag (PPP) [Time]11.7 sCritically high9.0-11.6The [facility] on above:Performed By: #### PT #### [facility] [address] [place] [address] Dr. Hugh Campbell (CLEAN/CATCH) COIL CUTTER/MICRO IF IND.on 18-22-7820Cmpxiquzv Ql (U) NegativeNormalNEGATIVEFlower HospitalComforest health medical center on above:Performed By: #### PTT #### [facility] [address] [place] [address] Dr. Hugh Llamas (U)CLEARNormalCLEARFlower HospitalComment on above: Performed By: #### PTT #### [facility] [address] [place] [address] Dr. Hugh Vela (U)YELLOWNormalYELLOWFlower HospitalComment on above: Performed By: #### PTT #### [facility] [address] [place] [address] Dr. Yilan ChangGlucose Ql (U)NegativeNormalNEGATIVEFlower HospitalComment on above:Performed By: #### PTT #### [facility] [address] [place] [address] Dr. Hugh LandisHemoglobin Ql (U)SMALLAbnormalNEGATIVEFlower Hospital Comment on above:Performed By: #### PTT #### [facility] [address] [place] [address] Dr. Hugh LandisKetones Ql (U)NegativeNormalNEGATIVEFlower HospitalComment on above:Performed By: #### PTT #### [facility] [address] [place] [address] Dr. Hugh LandisLEUKOCYTESNegativeNormalNEGATIVEFlower HospitalComforest health medical center on above:Performed By: #### PTT #### [facility] [address] [place] [address] Dr. Hugh LandisNitrite Ql (U)NegativeNormalNEGATIVEFlower HospitalComment on above:Performed By: #### PTT #### [facility] [address] [place] [address] Dr. Hugh LandispH (U)5.5 [pH]Normal5-9F[facility] HospitalComforest health medical center on above: Performed By: #### PTT #### [facility] [address] [place] [address] Dr. Hugh LandisSPEC GRAVITY1.415Elxubo0.005-<=1.025The [facility] HospitalComment on above:Performed By: #### PTT #### [facility] [address] [place] [address] Dr. Hugh Campbell PROTEINNegativeNormalNEGATIVE/ TRACEFlower Hospital Comment on above:Performed By: #### PTT #### [facility] [address] [place] [address] Dr. Hugh Zamorano MICRO INDINDICATEDNoalThAccess Hospital DaytonComment on above: Performed By: #### PTT #### [facility] [address] [place] [address] Dr. Hugh LandisUrobilinogen Qn (U)0.2 {[place]ah[place]'U}/dLNormal0.2 - 1.0The Cherrington Hospitalment on above:Performed By: #### PTT #### [facility] [address] [place] [address] Dr. Hugh Sosa MICROSCOPIC ONLYon 20-98-8258KIODJQCTLMWWLEcleyoizBIUK SEEN [facility] HospitalComment on above:Performed By: #### PTT #### [facility] [address] [place] [address] Dr. Hugh Sarmiento identified Cx Nom (U)NOT INDICATEDNoalThAccess Hospital DaytonComment on above:Performed By: #### PTT #### [facility] [address] [place] [address] Dr. Hugh Nowak SEENNormalNONE SEENWVUMedicine Harrison Community Hospital on above:Performed By: #### PTT #### [facility] [address] [place] [address] Dr. Hugh Carlson LM Nom (Urine sed)NONE SEENNormalNONE SEENFlower HospitalComforest health medical center on above:Performed By: #### PTT #### [facility] [address] [place] [address] Dr. Hugh Garciathelial cells LM Ql (Urine sed)RARENormalNONE SEEN /RAREThe [facility]. [facility] on above:Performed By: #### PTT #### [facility] [address] [place] [address] Dr. Hugh Pham SEENNormalNONE SEENFlower HospitalComforest health medical center on above:Performed By: #### PTT #### [facility] [address] [place] [address] Dr. Hugh SarabiaOeutuRWR6-9Ibjpua2-6Cjd [facility] HospitalComforest health medical center on above:Performed By: #### PTT #### [facility] [address] [place] [address] Dr. Hugh LandisWBC0-2AbnormalNONE SEENFlower HospitalComforest health medical center on above: Performed By: #### PTT #### [facility] [address] [place] [address] Dr. Hugh Calles NARES #1on 91-30-9500TOPH NARES #1Culture Observations: NO GROWTH OF MRSA AT 48 HOURS.NormalThe [facility] HospitalComment on above: Performed By: #### BMP #### [facility] [address] [place] [address] Dr. Hugh LandisPROF CHEM 8 (BAS METB)on 18-76-0975Uliba gap [Moles/Vol]9.9 mmol/LNormalThe [facility] HospitalComment on above:Performed By: #### CMP, LIPID, TSH #### [facility] [address] [place] [address] Dr. Hugh LandisCalcium [Mass/Vol]9.4 mg/dLNormal8.5-10.1[facility] Comment on above:Performed By: #### CMP, LIPID, TSH #### [facility] [address] [place] [address] Dr. Hugh LandisChloride [Moles/Vol]103 mmol/QSgbzmx63-135Tjr [facility] Comment on above:Performed By: #### CMP, LIPID, TSH #### [facility] [address] [place] [address] Dr. Hugh LandisCO2 [Moles/Vol]31.6 mmol/JBarbmy38.0-32.0[facility] Comment on above:Performed By: #### CMP, LIPID, TSH #### [facility] [address] [place] [address] Dr. Hugh LandisCreatinine [Mass/Vol]1.25 mg/dLNormal0.70-1.30The [facility] County HospitalComment on above:Performed By: #### CMP, LIPID, TSH #### [facility] [address] [place] [address] Dr. Hugh Chinchilla-AF LITHUANIAN>60Normal>=60The [facility] County HospitalComment on above:Performed By: #### CMP, LIPID, TSH #### [facility] [address] [place] [address] Dr. Yilan ChangEGFR-NON AF MSBWRBID46 mL/min/1.60w0Rffwiyhcso low>=60The [facility] HospitalComment on above:Performed By: #### CMP, LIPID, TSH #### [facility] [address] [address] [address] Hugh LandisGlucose [Mass/Vol]110 mg/dLCritically oqpe81-555Xui [facility] HospitalComment on above:Performed By: #### CMP, LIPID, TSH #### [facility] [address] [address] [address] Hugh LandisPotassium [Moles/Vol]3.5 mmol/LNormal3.5-5.1[facility] Comment on above:Performed By: #### CMP, LIPID, TSH #### [facility] [address] [place] [address] Dr. Hugh LandisSodium [Moles/Vol]141 mmol/UOcezna715-060Buv [facility] Comment on above:Performed By: #### CMP, LIPID, TSH #### [facility] [address] [address] [address] Hugh LandisUrea nitrogen [Mass/Vol]27.0 mg/dLCritically high7.0-18.0The [facility] HospitalComment on above:Performed By: #### CMP, LIPID, TSH #### [facility] [address] [place] [address] Dr. Hugh Herron nitrogen/Creatinine [Mass ratio]21.6 mg/mgNormalThe [facility] County HospitalComment on above:Performed By: #### CMP, LIPID, TSH #### [facility] [address] [place] [address] Dr. Hugh LandisPTMarkos 40-68-9773wQYS Coag (Bld) [Time]27.0 qRzulkx90.3-36.2The [facility] HospitalComment on above:Performed By: #### PTT #### [facility] [address] [place] [address] Dr. Hugh LandisINSULINon 42-61-4672Lcbhdxg86.1 uIU/mLNormal2.6-24.9The [facility] HospitalComment on above:Performed By: #### URIC, TSH, CMP, LIPID, T7 #### [facility] [address] [address] [address] Hugh Carranza AUTO DIFFon [id number] #0.1 103/ulNormal0.0-0.1The [facility] HospitalComment on above:Performed By: #### CMP, LIPID, TSH #### [facility] [address] [place] [address] Dr. Hugh LandisBasophils/100 WBC (Bld)1.3 %Normal0.2-2.0[facility] Comment on above:Performed By: #### CMP, LIPID, TSH #### [facility] [address] [place] [address] Dr. Hugh Yung #0.2 103/ulNormal0.0-0.7The [facility] HospitalComment on above: Performed By: #### CMP, LIPID, TSH #### [facility] [address] [place] [address] Dr. Hugh Paniaguaosinophils/100 WBC (Bld)4.7 %Normal0.9-7.0The [facility] Comment on above:Performed By: #### CMP, LIPID, TSH #### [facility] [address] [place] [address] Dr. Hugh Paniaguarythrocyte distribution width (RBC) [Ratio]12.6 %Vxrnks91.0-15.0 The [facility] HospitalComment on above:Performed By: #### CMP, LIPID, TSH #### [facility] [address] [place] [address] Dr. Hugh LandisHematocrit (Bld) [Volume fraction]39.1 %Critically low42.0-54.[address] [facility] on above:Performed By: #### CMP, LIPID, TSH #### [facility] [address] [place] [address] Dr. Hugh LandisHemoglobin (Bld) [Mass/Vol]12.4 g/dLCritically low14.0-18.0The [facility] HospitalComment on above:Performed By: #### CMP, LIPID, TSH #### [facility] [address] [address] [address] Hugh Polk #0.01 10e3/ulNormal0.00-0.03The [facility] HospitalComment on above:Performed By: #### CMP, LIPID, TSH #### [facility] [address] [address] [address] Hugh Polk %0.2 %Normal0.0-0.5The [facility] HospitalComment on above: Performed By: #### CMP, LIPID, TSH #### [facility] [address] [place] [address] Dr. Hugh Hook #0.9 103/ulCritically low1.2-3.8The [facility] Comment on above:Performed By: #### CMP, LIPID, TSH #### [facility] [address] [place] [address] Dr. Hugh Herronhocytes/100 WBC (Bld)19.4 %Critically low20.5-60.0The [facility] HospitalComment on above:Performed By: #### CMP, LIPID, TSH #### [facility] [address] [place] [address] Dr. Hugh Sweeney DIFF REQNONormalThe [facility] County HospitalComment on above: Performed By: #### CMP, LIPID, TSH #### [facility] [address] [place] [address] Dr. Hugh Izquierdo (RBC) [Entitic mass]29.2 xpHwngvj04.9-34.0The [facility] HospitalComment on above:Performed By: #### CMP, LIPID, TSH #### [facility] [address] [place] [address] Dr. Hugh Grady (RBC) [Mass/Vol]31.7 g/sRMtqads19.9-35.2The [facility] HospitalComment on above:Performed By: #### CMP, LIPID, TSH #### [facility] [address] [place] [address] Dr. Hugh Hidalgo (RBC) [Entitic vol]92.0 pKTvnxuw08.0-94.0The [facility] HospitalComment on above:Performed By: #### CMP, LIPID, TSH #### [facility] [address] [place] [address] Dr. Hugh Mariano #0.5 103/ulNormal0.3-0.8The [facility] HospitalComment on above:Performed By: #### CMP, LIPID, TSH #### [facility] [address] [place] [address] Dr. Hugh Bhagatocytes/100 WBC (Bld)9.6 %Normal1.7-12.0The [facility] Comment on above:Performed By: #### CMP, LIPID, TSH #### [facility] [address] [place] [address] Dr. Hugh Martinez #3.0 103/ulNormal1.4-6.5The [facility] HospitalComment on above:Performed By: #### CMP, LIPID, TSH #### [facility] [address] [place] [address] Dr. Hugh Ellisonutrophils/100 WBC (Bld)64.8 %Gnsmmd82.0-75.0The [facility] HospitalComment on above:Performed By: #### CMP, LIPID, TSH #### [facility] [address] [place] [address] Dr. Hugh Hope mean volume (Bld) [Entitic vol]9.4 fLCritically low 9.5-13.5The [facility] HospitalComment on above:Performed By: #### CMP, LIPID, TSH #### [facility] [address] [place] [address] Dr. Hugh LandisPLT232 103/zdPwpqhp922-353Ujl [facility] HospitalComment on above: Performed By: #### CMP, LIPID, TSH #### [facility] [address] [place] [address] Dr. Hugh LandisRBC4.25 106/ulCritically low4.70-6.10The [facility] HospitalComment on above:Performed By: #### CMP, LIPID, TSH #### [facility] [address] [address] [address] Hugh LandisWBC4.7 103/ulNormal4.0-11.0The [facility] HospitalComment on above: Performed By: #### CMP, LIPID, TSH #### [facility] [address] [address] [address] Hugh LandisFRTANYA THYROXINE INDEX T7on 54-92-6893JPZ0.17Bghnbg9.30-4.50The [facility] on above:Performed By: #### BMP #### [facility] [address] [address] [address] Hugh LandisT3U34.0 %Dmknid90.0-40.0The [facility] on above: Performed By: #### BMP #### [facility] [address] [address] [address] Hugh LandisT4 [Mass/Vol]7.80 ug/dLNormal4.50-12.10[facility] Comment on above:Performed By: #### BMP #### [facility] [address] [address] [address] Hugh LandisGLYCOHEMOGLOBIN A1Con [id number] RECOMMENDATIONSEE BELOWNormal The [facility] HospitalComforest [facility] on above:Result Comment: ADA RECOMMENDED LIMIT 4.0 - 6.0 ADA THERAPEUTIC TARGET < 7.0 ACTION SUGGESTED > 7.0Performed By: #### CMP, LIPID, TSH #### [facility] [address] [address] [address] Hugh LandisGlucose [Mass/Vol]123 mg/dLNormalThAccess Hospital DaytonComforest health medical center on above:Performed By: #### CMP, LIPID, TSH #### [facility] [address] [address] [address] Hugh LandisHbA1c (Bld) [Mass fraction]5.9 %Normal4.5-6.2The [facility] HospitalComforest [facility] center on above:Performed By: #### CMP, LIPID, TSH #### [facility] [address] [address] [address] Hugh QuirogaID PROFILEon 54-16-1119AOTS-HDL RATIO NORMSNewark HospitalComforest health medical center on above:Result Comment: 3.3 - 4.4 LOW RISK 4.4 - 7.1 AVERAGE RISK 7.1 - 11.0 MODERATE RISK >11.0 HIGH RISKPerformed By: #### URIC, TSH, CMP, LIPID, T7 #### [facility] [address] [address] [address] Hugh LandisCholesterol [Mass/Vol]179 mg/dLNormal<=200[facility] Comment on above:Performed By: #### URIC, TSH, CMP, LIPID, T7 #### [facility] [address] [place] [address] Dr. Hugh LandisCholesterol in HDL [Mass/Vol]46 mg/vNRdkxrb27-46Bmw [facility] HospitalComment on above:Performed By: #### URIC, TSH, CMP, LIPID, T7 #### [facility] [address] [address] [address] Hugh Croftesterol in LDL [Mass/Vol]100.4 mg/dLAdena Regional Medical CenterComment on above:Performed By: #### URIC, TSH, CMP, LIPID, T7 #### [facility] [address] [address] [address] Hugh Croftestersaba.total/Cholesterol in HDL [Mass ratio]3.9 {ratio} NormalOhioHealth Dublin Methodist Hospitalment on above:Performed By: #### URIC, TSH, CMP, LIPID, T7 #### [facility] [address] [place] [address] Dr. Hugh Rivera NORMAL> or = 60 mg/dl - LOW CARDIOVASCULAR RISK <40 mg/dl - HIGH CARDIOVASCULAR RISKAdena Regional Medical CenterComforest health medical center on above:Performed By: #### URIC, TSH, CMP, LIPID, T7 #### [facility] [address] [address] [address] Hugh LandisLDL CALC NORMALSEE [facility], IncComment on above:Result Comment: <100 mg/dl OPTIMAL 100 - 129 mg/dl NEAR OR ABOVE OPTIMAL 130 - 159 mg/dl BORDERLINE HIGH 160 - 189 mg/dl HIGH >190 mg/dl VERY HIGH Performed By: #### URIC, TSH, CMP, LIPID, T7 #### [facility] [address] [place] [address] Dr. Hugh LandisTriglyceride [Mass/Vol]163 mg/dLCritically high<=150The [facility] on above:Performed By: #### URIC, TSH, CMP, LIPID, T7 #### [facility] [address] [place] [address] Dr. Hugh LandisVLDL CALC32.6 mg/dLNormalThRegency Hospital Cleveland West on above: Performed By: #### URIC, TSH, CMP, LIPID, T7 #### [facility] [address] [place] [address] Dr. Hugh LandisPRODarrel 14(COMP METB)on 43-18-0148Lovvloi [Mass/Vol]3.6 g/dLNormal 3.4-5.0[facility] on above:Performed By: #### URIC, TSH, CMP, LIPID, T7 #### [facility] [address] [place] [address] Dr. Hugh LandisAlbumin/Globulin [Mass ratio]0.9 {ratio}NormalThe [facility] on above:Performed By: #### URIC, TSH, CMP, LIPID, T7 #### [facility] [address] [place] [address] Dr. Hugh Mejia [Catalytic activity/Vol]81 U/PUzfggo39-596Mdc [facility] on above:Performed By: #### URIC, TSH, CMP, LIPID, T7 #### [facility] [address] [place] [address] Dr. Hugh Chris [Catalytic activity/Vol]19 U/OFyhrbr35-08Rli [facility] on above:Performed By: #### URIC, TSH, CMP, LIPID, T7 #### [facility] [address] [place] [address] Dr. Hugh Resendiz gap [Moles/Vol]13.4 mmol/LNormalF[facility] Comment on above:Performed By: #### URIC, TSH, CMP, LIPID, T7 #### [facility] [address] [address] [address] Hugh LandisAST [Catalytic activity/Vol]16 U/NXsnnma60-02Jzz [facility] HospitalComment on above:Performed By: #### URIC, TSH, CMP, LIPID, T7 #### [facility] [address] [address] [address] Hugh LandisBilirubin [Mass/Vol]0.5 mg/dLNormal0.2-1.0[facility] Comment on above:Performed By: #### URIC, TSH, CMP, LIPID, T7 #### [facility] [address] [address] [address] Hugh LandisCalcium [Mass/Vol]9.7 mg/dLNormal8.5-10.1The [facility] Comment on above:Performed By: #### URIC, TSH, CMP, LIPID, T7 #### [facility] [address] [address] [address] Hugh LandisChloride [Moles/Vol]105 mmol/PYzvwzu13-887NcdF[facility] Hospital Comment on above:Performed By: #### URIC, TSH, CMP, LIPID, T7 #### [facility] [address] [address] [address] Hugh LandisCO2 [Moles/Vol]27.4 mmol/ABkkikq86.0-32.0The [facility] Comment on above:Performed By: #### URIC, TSH, CMP, LIPID, T7 #### [facility] [address] [address] [address] Hugh LandisCreatinine [Mass/Vol]1.37 mg/dLCritically high0.70-1.30The [facility] HospitalComment on above:Performed By: #### URIC, TSH, CMP, LIPID, T7 #### [facility] [address] [address] [address] Reese ChangEGFR-AF LITHUANIAN>60Normal>=60The [facility] HospitalComment on above:Performed By: #### URIC, TSH, CMP, LIPID, T7 #### [facility] [address] [place] [address] Dr. Reese ChangEGFR-NON AF JDQWSJKQ61 mL/min/1.85r3Raqiufagkt low>=60The [facility] HospitalComment on above:Performed By: #### URIC, TSH, CMP, LIPID, T7 #### [facility] [address] [address] [address] Hugh LandisGlobulin (S) [Mass/Vol]4.0 g/dLNormalThe [facility] HospitalComment on above:Performed By: #### URIC, TSH, CMP, LIPID, T7 #### [facility] [address] [place] [address] Dr. Hugh LandisGlucose [Mass/Vol]113 mg/dLCritically yuso05-046Nrm [facility] HospitalComment on above:Performed By: #### URIC, TSH, CMP, LIPID, T7 #### [facility] [address] [place] [address] Dr. Hugh LandisPotassium [Moles/Vol]3.8 mmol/LNormal3.5-5.1The [facility] Comment on above:Performed By: #### URIC, TSH, CMP, LIPID, T7 #### [facility] [address] [place] [address] Dr. Hugh LandisProtein [Mass/Vol]7.6 g/dLNormal6.4-8.2The [facility] Comment on above:Performed By: #### URIC, TSH, CMP, LIPID, T7 #### [facility] [address] [place] [address] Dr. Hugh LandisSodium [Moles/Vol]142 mmol/GPobhpe985-291Zqw [facility] Comment on above:Performed By: #### URIC, TSH, CMP, LIPID, T7 #### [facility] [address] [place] [address] Dr. Hugh LandisUrea nitrogen [Mass/Vol]21.0 mg/dLCritically high7.0-18.0The [facility] HospitalComment on above:Performed By: #### URIC, TSH, CMP, LIPID, T7 #### [facility] [address] [place] [address] Dr. Hugh LandisUrea nitrogen/Creatinine [Mass ratio]15.3 mg/mgNoSt. Mary's Medical Center, [facility]ont[facility] CampusComforest health medical center on above:Performed By: #### URIC, TSH, CMP, LIPID, T7 #### [facility] [address] [place] [address] Dr. Hugh LandisTSHon 57-32-9463SDG6.663 uIU/mLNormal0.358-3.740The [facility] HospitalComment on above:Performed By: #### URIC, TSH, CMP, LIPID, T7 #### [facility] [address] [place] [address] Dr. Hugh LandisURIC ACID SERUMon 40-80-5632Rwaym [Mass/Vol]6.9 mg/dLNormal 3.5-7.2The [facility] HospitalComment on above:Performed By: #### BMP #### [facility] [address] [place] [address] Dr. Hugh LandisVITAMIN D 25 OHon [id number] D 25-OH37.0 ng/mLNormalFlower HospitalComforest health medical center on above:Performed By: #### PTT #### [facility] [address] [place] [address] Dr. Hugh Petit RANGESSEE BELOWAdena Regional Medical CenterComment on above: Result Comment: <20 ng/mL Vit D deficient 20 - <30 ng/mL Vit D insufficient 30 - 100 ng/mL Vit D sufficient >100 ng/mL Potential ToxicityPerformed By: #### PTT #### [facility] [address] [place] [address] Dr. Hugh Hernandez KIDNEYSon [id number] KIDNEYSEXAMINATION: US KIDNEYS HISTORY: Urgent desire to urinate [...] Electronically authenticated by: OBIE TSE Date: 2021-12-21 17:34[facility] Medical CenterXR ABD FLAT UP_PA Barrett [id number] ABD FLAT UP_PA CH EXAMINATION: XR ABD [...] Electronically authenticated by: AUSTIN LARIOS Date: 2021-12-21 18:13[facility] Medical CenterUrine culture routineOrdered By: Estephanie Lowry on 12-17-2021 Bacteria identified Cx Nom (U)No Growth 2 [facility] Chlamydia trachomatis DNA [Presence] in Specimen by MUKUL with probe detection Ordered By: Estephanie Lowry on 12-15-2021. trachomatis DNA MUKUL+probe Ql (Unsp spec)NegativeNegativeMckitrick HospitalChlamydia/GC/Trich NAAon 79-59-5059Wnacqdrfs/GC/Trich NAANegativeNegativeNorth [employer] Other Neisseria gonorrhoeae DNA [Presence] in Specimen by MUKUL with probe detectionOrdered By: Estephanie Lowry on 12-15-2021N. gonorrhoeae DNA MUKUL+probe Ql (Unsp spec)NegativeNegOhioHealth Dublin Methodist Hospital Trichomonas vaginalis DNA [Presence] in Specimen by MUKUL with probe detection Ordered By: Estephanie Lowry on 12-15-2021T. vaginalis DNA MUKUL+probe Ql (Unsp spec) NegativeNegOhioHealth Dublin Methodist HospitalComment on above:Performed at: =[facility] [id number] Director: Shoshana Camargo MD, Phone: [phone] - AUTOMATEDon 35-97-0283Ympbivfwca (U)clearCanton AsicA[facility] Other Bilirubin Ql (U)NegativeCanton AsicA[facility] Other Color (U)orangeCanton [facility] Other Glucose Ql (U)NegativeCanton [facility] Other Hemoglobin Ql (U)moderateCanton [facility] Other Ketones Ql (U)NegativeCanton [employer] Other Leukocyte esterase Test strip Ql (U)NegativeCanton [facility] Other Nitrite Ql (U)PositiveCanton [facility] Other pH (U)5.5 [pH][place] [employer] Other Protein Ql (U)NegativeCanton [facility] Other Specific gravity (U) [Rel density]1.015Nosullivan [facility] Other Urobilinogen (U) [Mass/Vol]0.2 mg/dLCanton [facility]icA[facility] Other Urinalysis - AUTOMATEDNorth AsicAhead Other Urine Cultureon [id number] identified Cx Nom (U)[employer] Other CULTURE URINEon 77-50-8211KNICLST URINECulture Observations: NO GROWTH.NormalFlower HospitalComment on above:Performed By: #### BMP #### [facility] [address] [address] [address] Hugh LandisPROTEIN ELECTROPHERESIS URINE RANDOMon 45-39-7183Gcivbry, U33.4 % NormalFlower HospitalComment on above:Performed By: #### CMP, LIPID, TSH #### [facility] [address] [address] [address] Hugh Browning-1 Globulin U4.7 %NormalFlower HospitalComment on above:Performed By: #### CMP, LIPID, TSH #### [facility] [address] [address] [address] Hugh Browning-2 Glubulin U18.6 %NormalFlower HospitalComment on above:Performed By: #### CMP, LIPID, TSH #### [facility] [address] [address] [address] Hugh LandisBeta Globulin, U19.9 %NormalFlower HospitalComment on above:Performed By: #### CMP, LIPID, TSH #### [facility] [address] [address] [address] Hugh LandisGamma Globulin U23.4 %NormalFlower HospitalComment on above:Performed By: #### CMP, LIPID, TSH #### [facility] [address] [address] [address] Hugh LandisM-Tariq, %Not ObservedNormalNot ObservedFlower Hospital Comment on above:Performed By: #### CMP, LIPID, TSH #### [facility] [address] [address] [address] Hugh JarrellF.NormalFlower HospitalComment on above:Performed By: #### CMP, LIPID, TSH #### [facility] [address] [place] [address] Dr. Hugh Priest note:CommentNormalThe Cherrington Hospitalment on above: Result Comment: Protein electrophoresis scan will follow via computer, mail, or analytical tech delivery.Performed By: #### CMP, LIPID, TSH #### [facility] [address] [address] [address] Hugh LandisProtein (U) [Mass/Vol]4.9 mg/dLNormalNot Estab.The [facility] HospitalComment on above:Performed By: #### CMP, LIPID, TSH #### [facility] [address] [place] [address] Dr. Hugh LandisIMMUNOFIXATION(PRINCE),PROTEIN ELEC(PE),FREon [id number] [Mass/Vol]3.4 g/dLNormal2.9-4.4The Cherrington Hospitalment on above:Performed By: #### CMP, LIPID, TSH #### [facility] [address] [place] [address] Dr. Hugh LandisAlbumin/Globulin [Mass ratio]1.0 {ratio}Normal0.7-1.7The [facility] on above:Performed By: #### CMP, LIPID, TSH #### [facility] [address] [place] [address] Dr. Hugh LandisYeubeKwxvs-6-Ssdpzwau4.2 g/dLNormal0.0-0.4The [facility] on above:Performed By: #### CMP, LIPID, TSH #### [facility] [address] [place] [address] Dr. Hugh LandisTyencPvbfk-5-Qmgsdjia8.1 g/dLCritically high0.4-1.0The [facility] on above:Performed By: #### CMP, LIPID, TSH #### [facility] [address] [place] [address] Dr. Hugh LandisBeta Globulin1.0 g/dLNormal0.7-1.3The Cherrington Hospitalment on above:Performed By: #### CMP, LIPID, TSH #### [facility] [address] [address] [address] Hugh Rowan [place] Lt Chains,S35.7 mg/LCritically high3.3-19.4The [facility] HospitalComment on above:Performed By: #### CMP, LIPID, TSH #### [facility] [address] [address] [address] Hugh Rowan Lambda Lt Chains,S21.1 mg/LNormal5.7-26.3The [facility] HospitalComment on above:Performed By: #### CMP, LIPID, TSH #### [facility] [address] [place] [address] Dr. Hugh LandisGamma Globulin1.2 g/dLNormal0.4-1.8The [facility] HospitalComment on above:Performed By: #### CMP, LIPID, TSH #### [facility] [address] [place] [address] Dr. Hugh LandisGlobulin (S) [Mass/Vol]3.5 g/dLNormal2.2-3.9[facility] Comment on above:Performed By: #### CMP, LIPID, TSH #### [facility] [address] [address] [address] Hugh LandisImmunofixation Result, SerumCommentNoSt. Mary[facility] Comment on above:Result Comment: No monoclonality detected.Performed By: #### CMP, LIPID, TSH #### [facility] [address] [address] [address] Hugh LandisImmunoglobulin A, Qn, Xmyic127 mg/lRKpmcib66-900Yml [facility] HospitalComment on above:Performed By: #### CMP, LIPID, TSH #### [facility] [address] [place] [address] Dr. Hugh LandisImmunoglobulin G, Qn, Damaa9226 mg/uPMyefnm441-6627Jeg [facility] HospitalComment on above:Performed By: #### CMP, LIPID, TSH #### [facility] [address] [place] [address] Dr. Yilan ChangImmunoglobulin M, Qn, Serum79 mg/cWAkguzv95-277Pko [facility] Hospitalment on above:Performed By: #### CMP, LIPID, TSH #### [facility] [address] [place] [address] Dr. Hugh LandisKappa/Lambda Ratio, S1.69Critically high0.26-1.65The [facility] on above:Performed By: #### CMP, LIPID, TSH #### [facility] [address] [place] [address] Dr. Hugh LandisM-SpikeNot ObservedNormalNot ObservedThe St. [facility] on above:Performed By: #### CMP, LIPID, TSH #### [facility] [address] [place] [address] Dr. Hugh LandisPDF.NormalThe [facility] on above:Performed By: #### CMP, LIPID, TSH #### [facility] [address] [place] [address] Dr. Hugh LandisPlebryanna note:CommentNormalThe [facility] on above: Result Comment: Protein electrophoresis scan will follow via computer, mail, or analytical tech delivery.Performed By: #### CMP, LIPID, TSH #### [facility] [address] [place] [address] Dr. Hugh LandisProtein [Mass/Vol]6.9 g/dLNormal6.0-8.5The [facility] Comment on above:Performed By: #### CMP, LIPID, TSH #### [facility] [address] [place] [address] Dr. Hugh LandisPROTEIN AND CREA RANDOM UR RATIOon [id number], Urine 54.8 mg/dLNormalNot Estab.[facility] on above:Performed By: #### CMP, LIPID, TSH #### [facility] [address] [place] [address] Dr. Hugh LandisProtein (U) [Mass/Vol]4.1 mg/dLNormalNot Estab.The [facility]Com[facility] on above:Performed By: #### CMP, LIPID, TSH #### [facility] [address] [address] [address] Hugh LandisProtein/Creat Ratio75 mg/g creatNormal0-200[facility] Comment on above:Performed By: #### CMP, LIPID, TSH #### [facility] [address] [address] [address] Hugh LandisPTH INTACTon 20-75-1418GPA, Mpvnly06 pg/aAQtyrzl09-66Jsf [facility] HospitalComment on above:Performed By: #### PT #### [facility] [address] [address] [address] Hugh Campbell RANDOM W/MICROSCOPICon 11-51-9243CAIFJOMPVHIT SEENNormalNONE SEENFlower HospitalComforest health medical center on above:Performed By: #### PTT #### [facility] [address] [place] [address] Dr. Hugh Miranda Ql (U)NegativeNormalNEGATIVEThe [facility] Comment on above:Performed By: #### PTT #### [facility] [address] [address] [address] Hugh LandisCASTANTONINOE SEENNormalNONE SEENFlower HospitalComforest health medical center on above:Performed By: #### PTT #### [facility] [address] [address] [address] Hugh Bainarity (U)CLEARNormalCLEARThe [facility] HospitalComment on above: Performed By: #### PTT #### [facility] [address] [address] [address] Hugh Vela (U)LT. YELLOWNormalYELLOWFlower HospitalComment on above:Performed By: #### PTT #### [facility] [address] [address] [address] Hugh LandisCrystals LM Nom (Urine sed)NONE SEENNormalNONE SEENFlower HospitalComforest health medical center on above:Performed By: #### PTT #### [facility] [address] [address] [address] Reese ChangEpithelial cells LM Ql (Urine sed)NONE SEENNormalNONE SEEN /RARE The [facility] HospitalComment on above:Performed By: #### PTT #### [facility] [address] [place] [address] Dr. Hugh LandisGlucose Ql (U)NegativeNormalNEGATIVEFlower HospitalComment on above:Performed By: #### PTT #### [facility] [address] [place] [address] Dr. Hugh LandisHemoglobin Ql (U)MODERATEAbnormalNEGATIVEFairfield Medical Center on above:Performed By: #### PTT #### [facility] [address] [place] [address] Dr. Hugh LandisKetones Ql (U)NegativeNormalNEGATIVEFlower HospitalComment on above:Performed By: #### PTT #### [facility] [address] [place] [address] Dr. Hugh LandisLEUKOCYTESNegativeNormalNEGATIVEFlower HospitalComment on above:Performed By: #### PTT #### [facility] [address] [place] [address] Dr. Hugh LandisMUCOUSNONE SEENNormalNONE SEENFlower HospitalComment on above:Performed By: #### PTT #### [facility] [address] [place] [address] Dr. Hugh Masontrite Ql (U)NegativeNormalNEGATIVEFlower HospitalComment on above:Performed By: #### PTT #### [facility] [address] [place] [address] Dr. Hugh LandispH (U)5.5 [pH]Normal5-9[facility] HospitalComment on above: Performed By: #### PTT #### [facility] [address] [place] [address] Dr. Hugh LandisReenfDIX0-72Nrsagjib5-2Aqz [facility] HospitalComment on above:Performed By: #### PTT #### [facility] [address] [place] [address] Dr. Hugh LandisSPEC GRAVITY1.836Xaoaph2.005-<=1.025[facility] Hospitalment on above:Performed By: #### PTT #### [facility] [address] [place] [address] Dr. Hugh Campbell PROTEINNegativeNormalNEGATIVE/ TRACEThe [facility] Comment on above:Performed By: #### PTT #### [facility] [address] [place] [address] Dr. Hugh Lopezbilinogen Qn (U)0.2 {Dahiana'U}/dLNormal0.2 - 1.0[facility] HospitalComment on above:Performed By: #### PTT #### [facility] [address] [place] [address] Dr. Hugh LandisWBC0-2AbnormalNONE SEENFlower HospitalComment on above: Performed By: #### PTT #### [facility] [address] [place] [address] Dr. Hugh Sosa T PROTEIN CREAT RATIOon 48-69-8128Evntnfb (U) [Mass/Vol] 10.0 mg/dLNormal<=12.0The [facility] HospitalComment on above:Performed By: #### BMP #### [facility] [address] [place] [address] Dr. Hugh Zamorano PROT CREAT RAT0.18NormalThe [facility] HospitalComment on above: Performed By: #### BMP #### [facility] [address] [place] [address] Dr. Hugh Sosa CREAT57.11 mg/nSWzvhqo79.00-300.00[facility] Comment on above:Performed By: #### BMP #### [facility] [address] [place] [address] Dr. Hugh LandisFERRITINon 25-56-1761Sccleawk [Mass/Vol]95.0 ng/mLNormal 26.0-388.0The [facility] HospitalComment on above:Performed By: #### CMP, LIPID, TSH #### [facility] [address] [place] [address] Dr. Hugh LandisHEMOGRAM AND PLATELon 04-69-6108Rpcxutgnwu (Bld) [Volume fraction]35.7 %Critically low42.0-54.0The [facility] HospitalComment on above: Performed By: #### URIC, TSH, CMP, LIPID, T7 #### [facility] [address] [place] [address] Dr. Hugh LandisHemoglobin (Bld) [Mass/Vol]11.5 g/dLCritically low14.0-18.0The [facility] HospitalComment on above:Performed By: #### URIC, TSH, CMP, LIPID, T7 #### [facility] [address] [place] [address] Dr. Hugh Benitez (RBC) [Entitic mass]30.3 zrFyilor15.9-34.0The [facility] HospitalComment on above:Performed By: #### URIC, TSH, CMP, LIPID, T7 #### [facility] [address] [place] [address] Dr. Hugh Benitez (RBC) [Mass/Vol]32.2 g/gAWttcmm46.9-35.2The [facility]ment on above:Performed By: #### URIC, TSH, CMP, LIPID, T7 #### [facility] [address] [place] [address] Dr. Hugh Benitez (RBC) [Entitic vol]93.9 pIGgnjqh68.0-94.0The [facility] on above:Performed By: #### URIC, TSH, CMP, LIPID, T7 #### [facility] [address] [place] [address] Dr. Hugh LandisPLT254 103/xvKpjzjd863-032Vkv [facility] Hospitalment on above: Performed By: #### URIC, TSH, CMP, LIPID, T7 #### [facility] [address] [place] [address] Dr. Hugh LandisRBC3.80 106/ulCritically low4.70-6.10The [facility] HospitalComment on above:Performed By: #### URIC, TSH, CMP, LIPID, T7 #### [facility] [address] [address] [address] Hugh LandisWBC6.4 103/ulNormal4.0-11.0The [facility] HospitalComment on above: Performed By: #### URIC, TSH, CMP, LIPID, T7 #### [facility] [address] [place] [address] Dr. Hugh Danielle AND TIBCon 11-14-2021% ZHYAWRMZVL35.6 %NormalThe [facility] HospitalComment on above:Performed By: #### CMP, LIPID, TSH #### [facility] [address] [place] [address] Dr. Hugh Danielle [Mass/Vol]68.0 ug/eIDncacw82.0-175.0The [facility] Comment on above:Performed By: #### CMP, LIPID, TSH #### [facility] [address] [place] [address] Dr. Hugh LandisTIBC ANEZJB079.0 ug/dLCritically dsd236.0-450.0The [facility] HospitalComment on above:Performed By: #### CMP, LIPID, TSH #### [facility] [address] [place] [address] Dr. Hugh LandisMAGNESIUMon 73-21-1208Lxbugeesx [Mass/Vol]1.8 mg/dLNormal1.8-2.4 The [facility] HospitalComment on above:Performed By: #### URIC, TSH, CMP, LIPID, T7 #### [facility] [address] [place] [address] Dr. Hugh LandisRENSETH FUNCTION PANELon 77-87-1239Driysms [Mass/Vol]3.4 g/dLNormal 3.4-5.0The [facility] HospitalComment on above:Performed By: #### URIC, TSH, CMP, LIPID, T7 #### [facility] [address] [place] [address] Dr. Hugh LandisCalcium [Mass/Vol]9.1 mg/dLNormal8.5-10.1The [facility] Comment on above:Performed By: #### URIC, TSH, CMP, LIPID, T7 #### [facility] [address] [place] [address] Dr. Hugh LandisChloride [Moles/Vol]105 mmol/RJhplij05-399Ppj [facility] Comment on above:Performed By: #### URIC, TSH, CMP, LIPID, T7 #### [facility] [address] [place] [address] Dr. Hugh LandisCO2 [Moles/Vol]29.2 mmol/OZqjgvy09.0-32.0The [facility] Comment on above:Performed By: #### URIC, TSH, CMP, LIPID, T7 #### [facility] [address] [place] [address] Dr. Hugh LandisCreatinine [Mass/Vol]1.62 mg/dLCritically high0.70-1.30The [facility] HospitalComment on above:Performed By: #### URIC, TSH, CMP, LIPID, T7 #### [facility] [address] [place] [address] Dr. Hugh PaniaguaGFR-AF ZSGHSKZG35 mL/min/1.22c7Ennkrilnfy low>=60The [facility] HospitalComment on above:Performed By: #### URIC, TSH, CMP, LIPID, T7 #### [facility] [address] [place] [address] Dr. Hugh PaniaguaGFR-NON AF JHJLKYMR79 mL/min/1.45y7Pmdbsefbxr low>=60The [facility] HospitalComment on above:Performed By: #### URIC, TSH, CMP, LIPID, T7 #### [facility] [address] [place] [address] Dr. Hugh LandisGlucose [Mass/Vol]136 mg/dLCritically zaqo69-669Yhw [facility] HospitalComment on above:Performed By: #### URIC, TSH, CMP, LIPID, T7 #### [facility] [address] [place] [address] Dr. Hugh LandisPhosphate [Mass/Vol]2.8 mg/dLNormal2.6-4.7The [facility] Comment on above:Performed By: #### URIC, TSH, CMP, LIPID, T7 #### [facility] [address] [address] [address] Hugh LandisPotassium [Moles/Vol]3.1 mmol/LCritically low3.5-5.1The [facility] HospitalComment on above:Performed By: #### URIC, TSH, CMP, LIPID, T7 #### [facility] [address] [address] [address] Hugh LandisSodium [Moles/Vol]141 mmol/SRlkzhz702-261Ggl [facility] Comment on above:Performed By: #### URIC, TSH, CMP, LIPID, T7 #### [facility] [address] [address] [address] Hugh LandisUrea nitrogen [Mass/Vol]19.0 mg/dLCritically high7.0-18.0The [facility] HospitalComment on above:Performed By: #### URIC, TSH, CMP, LIPID, T7 #### [facility] [address] [place] [address] Dr. Hugh LandisURIC ACID SERUMon 91-86-0505Tbrqa [Mass/Vol]8.7 mg/dLCritically high3.5-7.2The [facility] HospitalComment on above:Performed By: #### URIC, TSH, CMP, LIPID, T7 #### [facility] [address] [address] [address] Hugh LandisVIT B12 AND FOLATEon 76-79-4703Vdvtejmus (Vitamin B12) [Mass/Vol] 373.0 pg/bEUorfhn448.0-986.0The [facility] HospitalComment on above:Performed By: #### URIC, TSH, CMP, LIPID, T7 #### [facility] [address] [address] [address] Hugh LandisFOLATE14.00 ng/mLNormal8.60-58.90The [facility] HospitalComment on above:Performed By: #### URIC, TSH, CMP, LIPID, T7 #### [facility] [address] [place] [address] Dr. Hugh LandisVITAMIN D 25 OHon 49-88-1768UCO D 25-OH33.8 ng/mLNProtestant Deaconess HospitalComment on above:Performed By: #### URIC, TSH, CMP, LIPID, T7 #### [facility] [address] [place], [place] [address] Dr. Hugh WALLS BELOWAdena Regional Medical CenterComment on above: Result Comment: <20 ng/mL Vit D deficient 20 - <30 ng/mL Vit D insufficient 30 - 100 ng/mL Vit D sufficient >100 ng/mL Potential ToxicityPerformed By: #### URIC, TSH, CMP, LIPID, T7 #### [facility] [address] [place], [place] [address] Dr. Hugh Hernandez KIDNEYS BLADDERon [id number] KIDNEYS BLADDEREXAMINATION: US KIDNEYS BLADDER HISTORY: Unspecified abnormal finding [...] Electronically authenticated by: AUSTIN LARIOS Date: 2021-11-01 16:44[facility] CenterXR CHEST 2 Von [id number] CHEST 2 VEXAMINATION: XR CHEST 2 V HISTORY: Dyspnea COMPARISON: 07/15/2021 TECHNIQUE: PA and lateral FINDINGS: LUNGS: No significant pulmonary parenchymal abnormalities. VASCULATURE: No increased pulmonary vasculature. PLEURA: No pneumothorax, effusion, or pleural thickening. CARDIAC: No cardiomegaly or cardiac silhouette abnormality. MEDIASTINUM: No visible mass or adenopathy. BONES: No fracture or visible bone lesion. OTHER: Negative. IMPRESSION: No acute disease. Electronically authenticated by: OBIE TSE Date: 2021-11-01 06:51[facility] CenterNM LUNG VENT_PERFon [id number] LUNG VENT_PERFEXAM: NM LUNG VENT_PERF HISTORY: Dyspnea COMPARISON: Chest x-ray 10/31/2021 TECHNIQUE: 6.1 mCi technetium MAA. 24.9 mCi technetium DTPA. FINDINGS: Perfusion images demonstrate no segmental perfusion defects to suggest acute pulmonary embolism Ventilation images are normal without ventilation defects. IMPRESSION: Normal ventilation/perfusion scan Electronically authenticated by: BARBARA SCHRADER Date: 2021-10-31 12:35[facility] Medical CenterPROF CHEM 8 (BAS METB)on [id number] gap [Moles/Vol]17.5 mmol/LNormalFlower HospitalComment on above:Performed By: #### BMP #### [facility] [address] [place] [address] Dr. Hugh LandisCalcium [Mass/Vol]9.4 mg/dLNormal8.5-10.1[facility] Comment on above:Performed By: #### BMP #### [facility] [address] [place] [address] Dr. Hugh LandisChloride [Moles/Vol]100 mmol/EUnxubu88-134RtoFlower Hospital Comment on above:Performed By: #### BMP #### [facility] [address] [place] [address] Dr. Hugh LandisCO2 [Moles/Vol]22.8 mmol/IEmuajh47.0-32.0[facility] Comment on above:Performed By: #### BMP #### [facility] [address] [place] [address] Dr. Hugh LandisCreatinine [Mass/Vol]2.69 mg/dLCritically high0.70-1.30[facility] HospitalComment on above:Performed By: #### BMP #### [facility] [address] [place] [address] Dr. Reese ChangEGFR-AF XCJRCNTP38 mL/min/1.80x7Tlkffguunt low>=60The [facility] HospitalComment on above:Performed By: #### BMP #### [facility] [address] [place] [address] Dr. Reese ChangEGFR-NON AF AGUYIKIT08 mL/min/1.00b4Jqplrfusdz low>=60The [facility] HospitalComment on above:Performed By: #### BMP #### [facility] [address] [place] [address] Dr. Hugh LandisGlucose [Mass/Vol]117 mg/dLCritically kymk92-744Oqy [facility] HospitalComment on above:Performed By: #### BMP #### [facility] [address] [place] [address] Dr. Hugh LandisPotassium [Moles/Vol]4.3 mmol/LNormal3.5-5.1[facility] Comment on above:Performed By: #### BMP #### [facility] [address] [place] [address] Dr. Hugh Saraviadium [Moles/Vol]136 mmol/JSppjxe026-937Kuu [facility] Comment on above:Performed By: #### BMP #### [facility] [address] [place] [address] Dr. Hugh LandisUrea nitrogen [Mass/Vol]41.0 mg/dLCritically high7.0-18.0The [facility] HospitalComment on above:Performed By: #### BMP #### [facility] [address] [place] [address] Dr. Hugh LandisUrea nitrogen/Creatinine [Mass ratio]15.2 mg/mgNormalThe [facility] HospitalComment on above:Performed By: #### BMP #### [facility] [address] [place] [address] Dr. Hugh Carranza AUTO DIFFon 84-86-8079UEFY #0.0 103/ulNormal0.0-0.1The [facility] HospitalComment on above:Performed By: #### PT #### [facility] [address] [place] [address] Dr. Yilan ChangBasophils/100 WBC (Bld)0.6 %Normal0.2-2.0The [facility] Comment on above:Performed By: #### PT #### [facility] [address] [place] [address] Dr. Hugh Yung #0.2 103/ulNormal0.0-0.7The [facility] HospitalComment on above: Performed By: #### PT #### [facility] [address] [place] [address] Dr. Hugh Paniaguaosinophils/100 WBC (Bld)2.3 %Normal0.9-7.0The [facility] Comment on above:Performed By: #### PT #### [facility] [address] [place] [address] Dr. Hugh Paniaguarythrocyte distribution width (RBC) [Ratio]12.7 %Qvpnph62.0-15.0 The [facility] HospitalComment on above:Performed By: #### PT #### [facility] [address] [place] [address] Dr. Hugh LandisHematocrit (Bld) [Volume fraction]36.2 %Critically low42.0-54.0 The [facility] HospitalComment on above:Performed By: #### PT #### [facility] [address] [place] [address] Dr. Hugh LandisHemoglobin (Bld) [Mass/Vol]11.5 g/dLCritically low14.0-18.0The [facility] HospitalComment on above:Performed By: #### PT #### [facility] [address] [place] [address] Dr. Hugh Polk #0.02 10e3/ulNormal0.00-0.03The [facility] HospitalComment on above:Performed By: #### PT #### [facility] [address] [place] [address] Dr. Hugh Polk %0.3 %Normal0.0-0.5The [facility] HospitalComment on above: Performed By: #### PT #### [facility] [address] [address] [address] Hugh Hook #1.4 103/ulNormal1.2-3.8The [facility] HospitalComment on above:Performed By: #### PT #### [facility] [address] [place] [address] Dr. Hugh Avilesmphocytes/100 WBC (Bld)21.3 %Hymefa10.5-60.0The [facility] HospitalComment on above:Performed By: #### PT #### [facility] [address] [place] [address] Dr. Hugh ReddyUAL DIFF REQNONormalThe [facility] HospitalComment on above: Performed By: #### PT #### [facility] [address] [place] [address] Dr. Hugh Benitez (RBC) [Entitic mass]29.6 xmRnfrfv69.9-34.0The [facility] HospitalComment on above:Performed By: #### PT #### [facility] [address] [place] [address] Dr. Hugh Benitez (RBC) [Mass/Vol]31.8 g/dFPcbhcz06.9-35.2The [facility] HospitalComment on above:Performed By: #### PT #### [facility] [address] [place] [address] Dr. Hugh Benitez (RBC) [Entitic vol]93.1 lPQeljts64.0-94.0The [facility] HospitalComment on above:Performed By: #### PT #### [facility] [address] [place] [address] Dr. Hugh Mariano #0.8 103/ulNormal0.3-0.8The [facility] HospitalComment on above:Performed By: #### PT #### [facility] [address] [place] [address] Dr. Hugh Bhagatocytes/100 WBC (Bld)11.5 %Normal1.7-12.0The [facility] Comment on above:Performed By: #### PT #### [facility] [address] [address] [address] Hugh EllisonUT #4.2 103/ulNormal1.4-6.5The [facility] HospitalComment on above:Performed By: #### PT #### [facility] [address] [place] [address] Dr. Hugh Ellisonutrophils/100 WBC (Bld)64.0 %Jtvkmu20.0-75.0The [facility] HospitalComment on above:Performed By: #### PT #### [facility] [address] [place] [address] Dr. Hugh LandisPlatelet mean volume (Bld) [Entitic vol]9.2 fLCritically low 9.5-13.5The [facility] HospitalComment on above:Performed By: #### PT #### [facility] [address] [place] [address] Dr. Hugh LandisPLT241 103/eyEoaqpa632-803Evh [facility] HospitalComment on above: Performed By: #### PT #### [facility] [address] [place] [address] Dr. Hugh LandisRBC3.89 106/ulCritically low4.70-6.10The [facility] HospitalComment on above:Performed By: #### PT #### [facility] [address] [place] [address] Dr. Hugh LandisWBC6.5 103/ulNormal4.0-11.0The [facility] HospitalComment on above: Performed By: #### PT #### [facility] [address] [place] [address] Dr. Hugh LandisCovid-19 PCR (CVDTBH)on 64-46-7484ALJB-CoV-2 (COVID-19) RNA MUKUL+probe Ql (Unsp spec)Not detectedNormalNOT DETECTEDThe [facility] Comment on above:Result Comment: This test is not yet approved or cleared by the [place] FDA. When there are no FDA-approved or cleared tests available, and other criteria are met, FDA can make tests available under an emergency access mechanism called an Emergency Use Authorization (EUA). The EUA for this test is supported by the [place] of Health and Human Service's (HHS's) declaration that circumstances exist to justify the emergency use of in vitro diagnostics for the detection and/or diagnosis of the virus that causes COVID- 19. This EUA will remain in effect (meaning [...] of clinical signs and symptoms consistent with SARS-CoV-2.Performed By: #### URIC, TSH, CMP, LIPID, T7 #### [facility] [address] [place] [address] Dr. Hugh LandisPROF CHEM 8 (BAS METB)on 23-97-8411Btmpx gap [Moles/Vol]16.3 mmol/LNormalThe [facility] HospitalComment on above:Performed By: #### CMP, LIPID, TSH #### [facility] [address] [place] [address] Dr. Hugh LandisCalcium [Mass/Vol]9.6 mg/dLNormal8.5-10.1[facility] Comment on above:Performed By: #### CMP, LIPID, TSH #### [facility] [address] [place] [address] Dr. Hugh LandisChloride [Moles/Vol]103 mmol/SUjefsf95-693Rep [facility] Comment on above:Performed By: #### CMP, LIPID, TSH #### [facility] [address] [place] [address] Dr. Hugh LandisCO2 [Moles/Vol]21.9 mmol/FZhvyry02.0-32.0[facility] Comment on above:Performed By: #### CMP, LIPID, TSH #### [facility] [address] [place] [address] Dr. Hugh LandisCreatinine [Mass/Vol]3.58 mg/dLCritically high0.70-1.30The [facility] HospitalComment on above:Performed By: #### CMP, LIPID, TSH #### [facility] [address] [address] [address] Hugh PaniaguaGFR-AF EGXSCPXF88 mL/min/1.19a4Hejrfoxrch low>=60The [facility] HospitalComment on above:Performed By: #### CMP, LIPID, TSH #### [facility] [address] [address] [address] Hugh PaniaguaGFR-NON AF OQPBXVPI15 mL/min/1.90g3Lfubnpmekm low>=60The [facility] HospitalComment on above:Performed By: #### CMP, LIPID, TSH #### [facility] [address] [place] [address] Dr. Hugh LandisGlucose [Mass/Vol]115 mg/dLCritically hhvr87-300Jnw [facility] HospitalComment on above:Performed By: #### CMP, LIPID, TSH #### [facility] [address] [place] [address] Dr. Hugh LandisPotassium [Moles/Vol]5.2 mmol/LCritically high3.5-5.1The [facility] HospitalComment on above:Performed By: #### CMP, LIPID, TSH #### [facility] [address] [place] [address] Dr. Hugh LandisSodium [Moles/Vol]136 mmol/VUoyoog073-107Byy [facility] Comment on above:Performed By: #### CMP, LIPID, TSH #### [facility] [address] [place] [address] Dr. Hugh LandisUrea nitrogen [Mass/Vol]54.0 mg/dLCritically high7.0-18.0The [facility] HospitalComment on above:Performed By: #### CMP, LIPID, TSH #### [facility] [address] [place] [address] Dr. Hugh Herron nitrogen/Creatinine [Mass ratio]15.1 mg/mgNormalThe [facility] HospitalComment on above:Performed By: #### CMP, LIPID, TSH #### [facility] [address] [place] [address] Dr. Hugh Calles COLONIZATION SCREENING CULTUREon [id number] Screening CultureNegativeNormalThe [facility] HospitalComment on above:Performed By: #### CMP, LIPID, TSH #### [facility] [address] [place] [address] Dr. Hugh Carranza AUTO DIFFon [id number] #0.0 103/ulNormal0.0-0.1The [facility] HospitalComment on above:Performed By: #### URIC, TSH, CMP, LIPID, T7 #### [facility] [address] [place] [address] Dr. Hugh LandisBasophils/100 WBC (Bld)0.3 %Normal0.2-2.0The [facility] Comment on above:Performed By: #### URIC, TSH, CMP, LIPID, T7 #### [facility] [address] [place] [address] Dr. Hugh Yung #0.1 103/ulNormal0.0-0.7The [facility] HospitalComment on above: Performed By: #### URIC, TSH, CMP, LIPID, T7 #### [facility] [address] [place] [address] Dr. Hugh Paniaguaosinophils/100 WBC (Bld)2.3 %Normal0.9-7.0[facility] Comment on above:Performed By: #### URIC, TSH, CMP, LIPID, T7 #### [facility] [address] [place] [address] Dr. Hugh Paniaguarythrocyte distribution width (RBC) [Ratio]13.3 %Yjlmkc62.0-15.0 The [facility] HospitalComment on above:Performed By: #### URIC, TSH, CMP, LIPID, T7 #### [facility] [address] [place] [address] Dr. Hugh LandisHematocrit (Bld) [Volume fraction]36.5 %Critically low42.0-54.0 The [facility] HospitalComment on above:Performed By: #### URIC, TSH, CMP, LIPID, T7 #### [facility] [address] [place] [address] Dr. Hugh LandisHemoglobin (Bld) [Mass/Vol]11.7 g/dLCritically low14.0-18.0The [facility] on above:Performed By: #### URIC, TSH, CMP, LIPID, T7 #### [facility] [address] [place] [address] Dr. Hugh Polk #0.02 10e3/ulNormal0.00-0.03The [facility] HospitalComment on above:Performed By: #### URIC, TSH, CMP, LIPID, T7 #### [facility] [address] [place] [address] Dr. Hugh Polk %0.3 %Normal0.0-0.5The [facility] HospitalComment on above: Performed By: #### URIC, TSH, CMP, LIPID, T7 #### [facility] [address] [place] [address] Dr. Hugh Hook #1.3 103/ulNormal1.2-3.8The [facility] HospitalComment on above:Performed By: #### URIC, TSH, CMP, LIPID, T7 #### [facility] [address] [place] [address] Dr. Hugh Herronhocytes/100 WBC (Bld)21.9 %Zyggnl77.5-60.0The [facility]ment on above:Performed By: #### URIC, TSH, CMP, LIPID, T7 #### [facility] [address] [place] [address] Dr. Hugh ReddyUAL DIFF REQNONormalThe [facility] HospitalComment on above: Performed By: #### URIC, TSH, CMP, LIPID, T7 #### [facility] [address] [place] [address] Dr. Hugh Izquierdo (RBC) [Entitic mass]29.7 fyLuxget24.9-34.0The [facility] HospitalComment on above:Performed By: #### URIC, TSH, CMP, LIPID, T7 #### [facility] [address] [place] [address] Dr. Hugh Benitez (RBC) [Mass/Vol]32.1 g/qEWfuinl75.9-35.2The [facility] HospitalComment on above:Performed By: #### URIC, TSH, CMP, LIPID, T7 #### [facility] [address] [place] [address] Dr. Hugh Benitez (RBC) [Entitic vol]92.6 uZUceqfp97.0-94.0The [facility] HospitalComment on above:Performed By: #### URIC, TSH, CMP, LIPID, T7 #### [facility] [address] [place] [address] Dr. Hugh Mariano #0.7 103/ulNormal0.3-0.8The [facility] HospitalComment on above:Performed By: #### URIC, TSH, CMP, LIPID, T7 #### [facility] [address] [place] [address] Dr. Hugh Bhagatocytes/100 WBC (Bld)11.3 %Normal1.7-12.0The [facility] Comment on above:Performed By: #### URIC, TSH, CMP, LIPID, T7 #### [facility] [address] [place] [address] Dr. Hugh Martinez #3.7 103/ulNormal1.4-6.5The [facility] HospitalComment on above:Performed By: #### URIC, TSH, CMP, LIPID, T7 #### [facility] [address] [place] [address] Dr. Hugh Ellisonutrophils/100 WBC (Bld)63.9 %Hbqycy93.0-75.0The [facility] HospitalComment on above:Performed By: #### URIC, TSH, CMP, LIPID, T7 #### [facility] [address] [place] [address] Dr. Hugh Hope mean volume (Bld) [Entitic vol]8.9 fLCritically low 9.5-13.5The [facility] HospitalComment on above:Performed By: #### URIC, TSH, CMP, LIPID, T7 #### [facility] [address] [address] [address] Hugh LandisPLT257 103/ocNpejrl755-690Rvz [facility] on above: Performed By: #### URIC, TSH, CMP, LIPID, T7 #### [facility] [address] [address] [address] Hugh LandisRBC3.94 106/ulCritically low4.70-6.10The [facility] on above:Performed By: #### URIC, TSH, CMP, LIPID, T7 #### [facility] [address] [address] [address] Hugh LandisWBC5.8 103/ulNormal4.0-11.0The [facility] on above: Performed By: #### URIC, TSH, CMP, LIPID, T7 #### [facility] [address] [place] [address] Dr. Hugh LandisGLYCOHEMOGLOBIN A1Con [id number] RECOMMENDATIONSEE BELOWNormal The [facility]Com[facility] on above:Result Comment: ADA RECOMMENDED LIMIT 4.0 - 6.0 ADA THERAPEUTIC TARGET < 7.0 ACTION SUGGESTED > 7.0Performed By: #### URIC, TSH, CMP, LIPID, T7 #### [facility] [address] [place] [address] Dr. Hugh LandisGlucose [Mass/Vol]134 mg/dLNormalThe [facility] on above:Performed By: #### URIC, TSH, CMP, LIPID, T7 #### [facility] [address] [place] [address] Dr. Hugh LandisHbA1c (Bld) [Mass fraction]6.3 %Critically high4.5-6.2The [facility] on above:Performed By: #### URIC, TSH, CMP, LIPID, T7 #### [facility] [address] [place] [address] Dr. Hugh LandisPROF CHEM 8 (BAS METB)on [id number] gap [Moles/Vol]17.6 mmol/LNormalThe [facility] HospitalComment on above:Performed By: #### CMP, LIPID, TSH #### [facility] [address] [address] [address] Hugh LandisCalcium [Mass/Vol]9.5 mg/dLNormal8.5-10.1[facility] Comment on above:Performed By: #### CMP, LIPID, TSH #### [facility] [address] [address] [address] Hugh LandisChloride [Moles/Vol]102 mmol/RTsibyv68-479Haj [facility] Comment on above:Performed By: #### CMP, LIPID, TSH #### [facility] [address] [place] [address] Dr. Hugh LandisCO2 [Moles/Vol]22.2 mmol/CRcnoqt23.0-32.0[facility] Comment on above:Performed By: #### CMP, LIPID, TSH #### [facility] [address] [place] [address] Dr. Hugh LandisCreatinine [Mass/Vol]2.94 mg/dLCritically high0.70-1.30The [facility] HospitalComment on above:Performed By: #### CMP, LIPID, TSH #### [facility] [address] [place] [address] Dr. Hugh PaniaguaGFR-AF EEQQFOLM14 mL/min/1.27f0Rxqscjdlng low>=60The [facility] HospitalComment on above:Performed By: #### CMP, LIPID, TSH #### [facility] [address] [place] [address] Dr. Hugh PaniaguaGFR-NON AF FZEZZDZC64 mL/min/1.56e3Bhlkcjafgw low>=60The [facility] HospitalComment on above:Performed By: #### CMP, LIPID, TSH #### [facility] [address] [place] [address] Dr. Hugh LandisGlucose [Mass/Vol]234 mg/dLCritically yicn90-708Nmn [facility] HospitalComment on above:Performed By: #### CMP, LIPID, TSH #### [facility] [address] [place] [address] Dr. Hugh LandisPotassium [Moles/Vol]5.8 mmol/LCritically high3.5-5.1The [facility] HospitalComment on above:Performed By: #### CMP, LIPID, TSH #### [facility] [address] [address] [address] Hugh LandisSodium [Moles/Vol]136 mmol/YBljkmi672-263Wbh [facility] Comment on above:Performed By: #### CMP, LIPID, TSH #### [facility] [address] [address] [address] Hugh LandisUrea nitrogen [Mass/Vol]46.0 mg/dLCritically high7.0-18.0The [facility] HospitalComment on above:Performed By: #### CMP, LIPID, TSH #### [facility] [address] [address] [address] Hugh Herron nitrogen/Creatinine [Mass ratio]15.6 mg/mgNoSt. Mary's Medical [facility] CampusComment on above:Performed By: #### CMP, LIPID, TSH #### [facility] [address] [address] [address] Hugh Green [id number] Coag (PPP) [Relative time]1.22 {INR} NormalThe [facility] HospitalComment on above:Performed By: #### URIC, TSH, CMP, LIPID, T7 #### [facility] [address] [address] [address] Hugh Vee GUIDELINESSEE BELOWAdena Regional Medical CenterComment on above:Result Comment: DESIRED INR: 2.0 - 3.0 CONDITIONS NOT LISTED BELOW 2.5 - 3.5 FOR PROSTHETIC HEART VALVE REPLACEMENT 2.5 - 3.5 RECURRENT THROMBOSIS Performed By: #### URIC, TSH, CMP, LIPID, T7 #### [facility] [address] [place] [address] Dr. Hugh LandisPT Coag (PPP) [Time]13.0 sCritically high9.0-11.6The [facility] Hospitalment on above:Performed By: #### URIC, TSH, CMP, LIPID, T7 #### [facility] [address] [address] [address] Hugh Rae [id number] Coag (Bld) [Time]30.6 gDuddyg42.3-36.2[facility]ment on above:Performed By: #### URIC, TSH, CMP, LIPID, T7 #### [facility] [address] [address] [address] Hugh Kauffman 41-40-9415Rdxxdxwrd Ql (U)NegativeNormalNEGATIVEFlower HospitalComment on above:Performed By: #### CMP, LIPID, TSH #### [facility] [address] [place] [address] Dr. Hugh LandisCldeisi ()CLEARNormalCLEARFlower HospitalComment on above: Performed By: #### CMP, LIPID, TSH #### [facility] [address] [place] [address] Dr. Hugh Vela (U)LT. YELLOWNormalYUniversity Hospitals St. John Medical CenterComment on above:Performed By: #### CMP, LIPID, TSH #### [facility] [address] [address] [address] Hugh LandisGlucose Ql (U)NegativeNormalNEGATIVEFlower HospitalComment on above:Performed By: #### CMP, LIPID, TSH #### [facility] [address] [address] [address] Hugh LandisHemoglobin Ql (U)NegativeNormalNEGATIVEFairfield Medical Center on above:Performed By: #### CMP, LIPID, TSH #### [facility] [address] [address] [address] Hugh LandisKetones Ql (U)NegativeNormalNEGATIVEFlower HospitalComment on above:Performed By: #### CMP, LIPID, TSH #### [facility] [address] [place] [address] Dr. Hugh LandisLEUKOCYTESNegativeNormalNEGKettering Health Greene MemorialComment on above:Performed By: #### CMP, LIPID, TSH #### [facility] [address] [place] [address] Dr. Hugh Lunsford Ql (U)NegativeNormalNEGATIVEThe [facility] HospitalComment on above:Performed By: #### CMP, LIPID, TSH #### [facility] [address] [place] [address] Dr. Hugh LandispH (U)5.5 [pH]Normal5-9The [facility] HospitalComment on above: Performed By: #### CMP, LIPID, TSH #### [facility] [address] [place] [address] Dr. Hugh LandisSPEC GRAVITY1.764Xyajtc7.005-<=1.025The [facility] HospitalComment on above:Performed By: #### CMP, LIPID, TSH #### [facility] [address] [place] [address] Dr. Hugh Campbell PROTEINNegativeNormalNEGATIVE/ TRACEThe [facility] Comment on above:Performed By: #### CMP, LIPID, TSH #### [facility] [address] [place] [address] Dr. Hugh Carlos Qn (U)0.2 {Dahiana'U}/dLNormal0.2 - 1.0The [facility] HospitalComment on above:Performed By: #### CMP, LIPID, TSH #### [facility] [address] [place] [address] Dr. Hugh Carranza AUTO DIFFon [id number] #0.0 103/ulNormal0.0-0.1The [facility] Hospitalment on above:Performed By: #### URIC, TSH, CMP, LIPID, T7 #### [facility] [address] [place] [address] Dr. Hugh LandisBasophils/100 WBC (Bld)0.4 %Normal0.2-2.0[facility] Comment on above:Performed By: #### URIC, TSH, CMP, LIPID, T7 #### [facility] [address] [place] [address] Dr. Yilan ChangEO #0.1 103/ulNormal0.0-0.7The [facility] HospitalComment on above: Performed By: #### URIC, TSH, CMP, LIPID, T7 #### [facility] [address] [place] [address] Dr. Hugh Paniaguaosinophils/100 WBC (Bld)1.7 %Normal0.9-7.0The [facility] Comment on above:Performed By: #### URIC, TSH, CMP, LIPID, T7 #### [facility] [address] [place] [address] Dr. Hugh Paniaguarythrocyte distribution width (RBC) [Ratio]13.5 %Xltkyi07.0-15.0 The [facility] HospitalComment on above:Performed By: #### URIC, TSH, CMP, LIPID, T7 #### [facility] [address] [place] [address] Dr. Hugh LandisHematocrit (Bld) [Volume fraction]36.0 %Critically low42.0-54.0 The [facility] HospitalComment on above:Performed By: #### URIC, TSH, CMP, LIPID, T7 #### [facility] [address] [place] [address] Dr. Hugh LandisHemoglobin (Bld) [Mass/Vol]11.7 g/dLCritically low14.0-18.0The [facility] Hospitalment on above:Performed By: #### URIC, TSH, CMP, LIPID, T7 #### [facility] [address] [place] [address] Dr. Hugh Polk #0.02 10e3/ulNormal0.00-0.03The [facility] Hospitalment on above:Performed By: #### URIC, TSH, CMP, LIPID, T7 #### [facility] [address] [place] [address] Dr. Hugh Polk %0.3 %Normal0.0-0.5The [facility] HospitalComment on above: Performed By: #### URIC, TSH, CMP, LIPID, T7 #### [facility] [address] [place] [address] Dr. Hugh Hook #1.3 103/ulNormal1.2-3.8The [facility] HospitalComment on above:Performed By: #### URIC, TSH, CMP, LIPID, T7 #### [facility] [address] [place] [address] Dr. Hugh Herronhocytes/100 WBC (Bld)18.3 %Critically low20.5-60.0The [facility] HospitalComment on above:Performed By: #### URIC, TSH, CMP, LIPID, T7 #### [facility] [address] [place] [address] Dr. Hugh Sweeney DIFF REQNONormalThe [facility] HospitalComment on above: Performed By: #### URIC, TSH, CMP, LIPID, T7 #### [facility] [address] [place] [address] Dr. Hugh Benitez (RBC) [Entitic mass]29.4 unNdpbrb36.9-34.0The [facility] HospitalComment on above:Performed By: #### URIC, TSH, CMP, LIPID, T7 #### [facility] [address] [place] [address] Dr. Hugh Benitez (RBC) [Mass/Vol]32.5 g/kXJmrcju12.9-35.2The [facility] Hospitalment on above:Performed By: #### URIC, TSH, CMP, LIPID, T7 #### [facility] [address] [place] [address] Dr. Hugh Benitez (RBC) [Entitic vol]90.5 vGGjeyar61.0-94.0The [facility] HospitalComment on above:Performed By: #### URIC, TSH, CMP, LIPID, T7 #### [facility] [address] [place] [address] Dr. Hugh Mariano #0.6 103/ulNormal0.3-0.8The [facility] HospitalComment on above:Performed By: #### URIC, TSH, CMP, LIPID, T7 #### [facility] [address] [place] [address] Dr. Hugh Bhagatocytes/100 WBC (Bld)8.6 %Normal1.7-12.0The [facility] Comment on above:Performed By: #### URIC, TSH, CMP, LIPID, T7 #### [facility] [address] [place] [address] Dr. Hugh Martinez #4.9 103/ulNormal1.4-6.5The [facility] HospitalComment on above:Performed By: #### URIC, TSH, CMP, LIPID, T7 #### [facility] [address] [place] [address] Dr. Hugh Ellisonutrophils/100 WBC (Bld)70.7 %Fntpmg29.0-75.0The [facility] HospitalComment on above:Performed By: #### URIC, TSH, CMP, LIPID, T7 #### [facility] [address] [place] [address] Dr. Hugh Heltonlet mean volume (Bld) [Entitic vol]8.8 fLCritically low 9.5-13.5The [facility] HospitalComment on above:Performed By: #### URIC, TSH, CMP, LIPID, T7 #### [facility] [address] [place] [address] Dr. Hugh LandisPLT270 103/puJikquu431-203Xfo [facility] HospitalComment on above: Performed By: #### URIC, TSH, CMP, LIPID, T7 #### [facility] [address] [place] [address] Dr. Hugh LandisRBC3.98 106/ulCritically low4.70-6.10The [facility] HospitalComment on above:Performed By: #### URIC, TSH, CMP, LIPID, T7 #### [facility] [address] [place] [address] Dr. Hugh LandisWBC6.9 103/ulNormal4.0-11.0The [facility] HospitalComment on above: Performed By: #### URIC, TSH, CMP, LIPID, T7 #### [facility] [address] [place] [address] Dr. Hugh Carrizales [id number] [Mass/Vol]mg/LNormal<=1.0The [facility] HospitalComment on above:Performed By: #### PT #### [facility] [address] [place] [address] Dr. Hugh LandisCULTURE BLOODon 49-62-4601Oapvqncswow examination of blood, cultureCulture Observations: NO GROWTH AT 5 DAYS.NormalThe [facility] HospitalComment on above:Performed By: #### BMP #### [facility] [address] [place] [address] Dr. Hugh LandisMicroscopic examination of blood, cultureCulture Observations: NO GROWTH AT 5 DAYS.NormalThe [facility] HospitalComment on above:Performed By: #### BMP #### [facility] [address] [place] [address] Dr. Hugh Castle [id number] [Mass/Vol]62.0 ug/dLCritically low 65.0-175.0The [facility] HospitalComment on above:Performed By: #### BMP #### [facility] [address] [place] [address] Dr. Hugh LandisSED RATE WESTERGRENon 54-46-8046HTY ABTU103 mm/hrCritically high <=20The [facility] HospitalComment on above:Performed By: #### CMP, LIPID, TSH #### [facility] [address] [place] [address] Dr. Hugh LandisNM BONE IMAGE 3 PHASEon [id number] BONE IMAGE 3 PHASE EXAMINATION: NM BONE [...] Electronically authenticated by: OBIE TSE Date: 2021-09-05 16:15NormalThe [facility] HospitalCREATININEon 36-50-0802Ulwnhtjedj [Mass/Vol]1.92 mg/dL Critically high0.70-1.30[facility] HospitalComment on above:Performed By: #### CMP, LIPID, TSH #### [facility] [address] [place] [address] Dr. Hugh PaniaguaGFR-AF DTUQORSJ54 mL/min/1.80d0Thttswddbm low>=60The [facility] HospitalComment on above:Performed By: #### CMP, LIPID, TSH #### [facility] [address] [place] [address] Dr. Hugh PaniaguaGFR-NON AF QZNABKRL03 mL/min/1.93k4Lnbtzupbzl low>=60The [facility] HospitalComment on above:Performed By: #### CMP, LIPID, TSH #### [facility] [address] [place] [address] Dr. Hugh Lake CHEST WO W CONon [id number] CHEST WO W CONEXAMINATION: CTA CHEST WO W CON HISTORY: Pulmonary embolism COMPARISON: [...] Electronically authenticated by: OBIE TSE Date: 2021-08-25 10:16NoSam[facility] AUTO DIFFon [id number] #0.0 103/ulNormal0.0-0.1The [facility] HospitalComment on above:Performed By: #### CMP, LIPID, TSH #### [facility] [address] [place] [address] Dr. Hugh LandisBasophils/100 WBC (Bld)0.4 %Normal0.2-2.0The [facility] Comment on above:Performed By: #### CMP, LIPID, TSH #### [facility] [address] [place] [address] Dr. Hugh Yung #0.1 103/ulNormal0.0-0.7The [facility] HospitalComment on above: Performed By: #### CMP, LIPID, TSH #### [facility] [address] [place] [address] Dr. Hugh Paniaguaosinophils/100 WBC (Bld)1.8 %Normal0.9-7.0The [facility] Comment on above:Performed By: #### CMP, LIPID, TSH #### [facility] [address] [place] [address] Dr. Hugh Paniaguarythrocyte distribution width (RBC) [Ratio]13.3 %Ssvgqb23.0-15.0 [facility] HospitalComment on above:Performed By: #### CMP, LIPID, TSH #### [facility] [address] [place] [address] Dr. Hugh LandisHematocrit (Bld) [Volume fraction]34.7 %Critically low42.0-54.0 The [facility] HospitalComment on above:Performed By: #### CMP, LIPID, TSH #### [facility] [address] [place] [address] Dr. Hugh LandisHemoglobin (Bld) [Mass/Vol]11.3 g/dLCritically low14.0-18.0The [facility] HospitalComment on above:Performed By: #### CMP, LIPID, TSH #### [facility] [address] [place] [address] Dr. Hugh Polk #0.05 10e3/ulCritically high0.00-0.03The [facility] Comment on above:Performed By: #### CMP, LIPID, TSH #### [facility] [address] [address] [address] Hugh Polk %0.7 %Critically high0.0-0.5The [facility] HospitalComment on above:Performed By: #### CMP, LIPID, TSH #### [facility] [address] [address] [address] Hugh Hook #1.1 103/ulCritically low1.2-3.8The [facility] Comment on above:Performed By: #### CMP, LIPID, TSH #### [facility] [address] [place] [address] Dr. Hugh Herronhocytes/100 WBC (Bld)16.0 %Critically low20.5-60.0The [facility] HospitalComment on above:Performed By: #### CMP, LIPID, TSH #### [facility] [address] [place] [address] Dr. Hugh ReddyUAL DIFF REQNONormalThe [facility] HospitalComment on above: Performed By: #### CMP, LIPID, TSH #### [facility] [address] [place] [address] Dr. Hugh Benitez (RBC) [Entitic mass]29.7 rwRfbprm40.9-34.0The [facility] HospitalComment on above:Performed By: #### CMP, LIPID, TSH #### [facility] [address] [place] [address] Dr. Hugh Benitez (RBC) [Mass/Vol]32.6 g/fSVsoyjq60.9-35.2The [facility] HospitalComment on above:Performed By: #### CMP, LIPID, TSH #### [facility] [address] [place] [address] Dr. Hugh Benitez (RBC) [Entitic vol]91.3 tPHdsafz60.0-94.0The [facility] HospitalComment on above:Performed By: #### CMP, LIPID, TSH #### [facility] [address] [address] [address] Hugh Mariano #0.7 103/ulNormal0.3-0.8The [facility] HospitalComment on above:Performed By: #### CMP, LIPID, TSH #### [facility] [address] [place] [address] Dr. Hugh Bhagatocytes/100 WBC (Bld)9.7 %Normal1.7-12.0The [facility] Comment on above:Performed By: #### CMP, LIPID, TSH #### [facility] [address] [place] [address] Dr. Hugh Martinez #4.9 103/ulNormal1.4-6.5The [facility] County HospitalComment on above:Performed By: #### CMP, LIPID, TSH #### [facility] [address] [place] [address] Dr. Hugh Ellisonutrophils/100 WBC (Bld)71.4 %Fvgiby45.0-75.0The [facility] HospitalComment on above:Performed By: #### CMP, LIPID, TSH #### [facility] [address] [place] [address] Dr. Hugh Hope mean volume (Bld) [Entitic vol]9.0 fLCritically low 9.5-13.5The [facility] HospitalComment on above:Performed By: #### CMP, LIPID, TSH #### [facility] [address] [place] [address] Dr. Hugh CaballeroT264 103/dhPxcmzx345-482Ivv [facility] HospitalComment on above: Performed By: #### CMP, LIPID, TSH #### [facility] [address] [place] [address] Dr. Hugh LandisRBC3.80 106/ulCritically low4.70-6.10The [facility] HospitalComment on above:Performed By: #### CMP, LIPID, TSH #### [facility] [address] [place] [address] Dr. Hugh LandisWBC6.8 103/ulNormal4.0-11.0The [facility] HospitalComment on above: Performed By: #### CMP, LIPID, TSH #### [facility] [address] [address] [address] Hugh Macias 14(COMP METB)on 73-56-4579Ugsoslt [Mass/Vol]3.5 g/dLNormal 3.4-5.0The [facility] HospitalComment on above:Performed By: #### URIC, TSH, CMP, LIPID, T7 #### [facility] [address] [address] [address] Hugh LandisAlbumin/Globulin [Mass ratio]0.8 {ratio}NormalThe [facility] HospitalComment on above:Performed By: #### URIC, TSH, CMP, LIPID, T7 #### [facility] [address] [place] [address] Dr. Hugh Mejia [Catalytic activity/Vol]63 U/XNttcua34-194Rge [facility] HospitalComment on above:Performed By: #### URIC, TSH, CMP, LIPID, T7 #### [facility] [address] [address] [address] Hugh Chris [Catalytic activity/Vol]26 U/OXinras73-95Lkv [facility] Hospitalment on above:Performed By: #### URIC, TSH, CMP, LIPID, T7 #### [facility] [address] [address] [address] Hugh Resendiz gap [Moles/Vol]12.7 mmol/LNormalThe [facility] Comment on above:Performed By: #### URIC, TSH, CMP, LIPID, T7 #### [facility] [address] [address] [address] Hugh Heaton [Catalytic activity/Vol]14 U/LCritically sow39-27Jwh [facility] Hospitalment on above:Performed By: #### URIC, TSH, CMP, LIPID, T7 #### [facility] [address] [place] [address] Dr. Hugh LandisBilirubin [Mass/Vol]0.3 mg/dLNormal0.2-1.0[facility] Comment on above:Performed By: #### URIC, TSH, CMP, LIPID, T7 #### [facility] [address] [address] [address] Hugh LandisCalcium [Mass/Vol]9.2 mg/dLNormal8.5-10.1[facility] Comment on above:Performed By: #### URIC, TSH, CMP, LIPID, T7 #### [facility] [address] [place] [address] Dr. Hugh LandisChloride [Moles/Vol]105 mmol/WToeqmf45-562KmnFlower Hospital Comment on above:Performed By: #### URIC, TSH, CMP, LIPID, T7 #### [facility] [address] [place] [address] Dr. Hugh LandisCO2 [Moles/Vol]25.5 mmol/KHuogjl55.0-32.0[facility] Comment on above:Performed By: #### URIC, TSH, CMP, LIPID, T7 #### [facility] [address] [place] [address] Dr. Hugh LandisCreatinine [Mass/Vol]2.46 mg/dLCritically high0.70-1.30The [facility] HospitalComment on above:Performed By: #### URIC, TSH, CMP, LIPID, T7 #### [facility] [address] [place] [address] Dr. Hugh PaniaguaGFR-AF FRPPSHGL56 mL/min/1.33f8Wnubrrgygn low>=60The [facility] HospitalComment on above:Performed By: #### URIC, TSH, CMP, LIPID, T7 #### [facility] [address] [address] [address] Hugh PaniaguaGFR-NON AF FPXJDNSH50 mL/min/1.81c0Arspejofwf low>=60The [facility] HospitalComment on above:Performed By: #### URIC, TSH, CMP, LIPID, T7 #### [facility] [address] [place] [address] Dr. Hugh LandisGlobulin (S) [Mass/Vol]4.5 g/dLNormalThAccess Hospital DaytonComment on above:Performed By: #### URIC, TSH, CMP, LIPID, T7 #### [facility] [address] [address] [address] Hugh LandisGlucose [Mass/Vol]119 mg/dLCritically zsdf79-681Cem [facility] HospitalComment on above:Performed By: #### URIC, TSH, CMP, LIPID, T7 #### [facility] [address] [address] [address] Hugh LandisPotassium [Moles/Vol]4.2 mmol/LNormal3.5-5.1The [facility] Comment on above:Performed By: #### URIC, TSH, CMP, LIPID, T7 #### [facility] [address] [place] [address] Dr. Hugh LandisProtein [Mass/Vol]8.0 g/dLNormal6.4-8.2The [facility] Comment on above:Performed By: #### URIC, TSH, CMP, LIPID, T7 #### [facility] [address] [address] [address] Hugh LandisSodium [Moles/Vol]139 mmol/QRrzxhb233-110Dzx [facility] Comment on above:Performed By: #### URIC, TSH, CMP, LIPID, T7 #### [facility] [address] [address] [address] Hugh LandisUrea nitrogen [Mass/Vol]49.0 mg/dLCritically high7.0-18.0The [facility] HospitalComment on above:Performed By: #### URIC, TSH, CMP, LIPID, T7 #### [facility] [address] [address] [address] Hugh LandisUrea nitrogen/Creatinine [Mass ratio]19.9 mg/mgNoSt. Mary's Medical Center, Ironton CampusComment on above:Performed By: #### URIC, TSH, CMP, LIPID, T7 #### [facility] [address] [place] [address] Dr. Hugh LandisTESTOSTERONE, FREE,DIRECT, TOTALon 68-23-5136Vryi Testosterone(Direct)5.9 pg/mLCritically low7.2-24.0The [facility] on above:Result Comment: Performed at: BNPerformed By: #### BMP #### [facility] [address] [place] [address] Dr. Hugh LandisTestosterone [Mass/Vol]392 ng/aNHrtohv443-209Kqg [facility] on above:Result Comment: Adult male reference interval is based on a population of healthy nonobese males (BMI <30) between 19 and 39 years old. patrick Gatica.al. JCEM 2017,102;2477-5551. PMID: [id number]. Performed at: CBPerformed By: #### BMP #### [facility] [address] [place] [address] Dr. Hugh LandisVITAMIN B1 (THIAMINE)on 10-73-2874Fih. B1, Whole Cqieu519.1 nmol/JEysbyt84.5-200.0The [facility] Hospitalment on above:Performed By: #### CMP, LIPID, TSH #### [facility] [address] [place] [address] Dr. Hugh LandisVITAMIN Aon 00-36-6395Sfwdbpw A82.7 ug/dLCritically high20.1-62.[address] [facility] on above:Result Comment: Reference intervals for vitamin A determined from [facility] internal studies. Individuals with vitamin A less than 20 ug/dL are considered vitamin A deficient and those with serum concentrations less than 10 ug/dL are considered severely deficient. . This test was developed and its performance characteristics determined by [facility]. It has not been cleared or approved by the Food and Drug Administration.Performed By: #### PT #### [facility] [address] [place], [place] [address] Dr. Hugh Ronquillo SERUM OR PLASMAon 28-58-6086Ywpw, Plasma or Serum78 ug/dL Gtmxrb74-121Ygj [facility] on above:Result Comment: Detection Limit = 5Performed By: #### CMP, LIPID, TSH #### [facility] [address] [place], [place] [address] Dr. Hugh LandisFOLATE ([facility])on 05-52-3150Zbxrxm41.9 ng/mLNormal>3.0The [facility] HospitalComment on above:Result Comment: A serum folate concentration of less than 3.1 ng/mL is considered to represent clinical deficiency.Performed By: #### PTT #### [facility] [address] [place] [address] Dr. Hugh LandisPTH INTACTon 40-72-5095OOH, Dirxuh45 pg/iSNlcqvr85-02Qlm [facility] HospitalComment on above:Performed By: #### PTT #### [facility] [address] [place] [address] Dr. Hugh Carranza AUTO DIFFon 48-92-0684RTYD #0.0 103/ulNormal0.0-0.1The [facility] HospitalComment on above:Performed By: #### CMP, LIPID, TSH #### [facility] [address] [place] [address] Dr. Hugh LandisBasophils/100 WBC (Bld)0.6 %Normal0.2-2.0[facility] Comment on above:Performed By: #### CMP, LIPID, TSH #### [facility] [address] [place] [address] Dr. Hugh Yung #0.2 103/ulNormal0.0-0.7The [facility] HospitalComment on above: Performed By: #### CMP, LIPID, TSH #### [facility] [address] [place] [address] Dr. Hugh Paniaguaosinophils/100 WBC (Bld)2.2 %Normal0.9-7.0The [facility] Comment on above:Performed By: #### CMP, LIPID, TSH #### [facility] [address] [place] [address] Dr. Hugh Paniaguarythrocyte distribution width (RBC) [Ratio]13.4 %Ppkrva45.0-15.0 The [facility] HospitalComment on above:Performed By: #### CMP, LIPID, TSH #### [facility] [address] [place] [address] Dr. Yilan ChangHematocrit (Bld) [Volume fraction]38.2 %Critically low42.0-54.0 The [facility] HospitalComment on above:Performed By: #### CMP, LIPID, TSH #### [facility] [address] [place] [address] Dr. Hugh LandisHemoglobin (Bld) [Mass/Vol]11.8 g/dLCritically low14.0-18.0The [facility] HospitalComment on above:Performed By: #### CMP, LIPID, TSH #### [facility] [address] [place] [address] Dr. Hugh Polk #0.03 10e3/ulNormal0.00-0.03The [facility] HospitalComment on above:Performed By: #### CMP, LIPID, TSH #### [facility] [address] [place] [address] Dr. Hugh Polk %0.4 %Normal0.0-0.5The [facility] HospitalComment on above: Performed By: #### CMP, LIPID, TSH #### [facility] [address] [place] [address] Dr. Hugh Hook #1.0 103/ulCritically low1.2-3.8The [facility] Comment on above:Performed By: #### CMP, LIPID, TSH #### [facility] [address] [place] [address] Dr. Hugh Avilesmphocytes/100 WBC (Bld)14.9 %Critically low20.5-60.0The [facility] HospitalComment on above:Performed By: #### CMP, LIPID, TSH #### [facility] [address] [place] [address] Dr. Hugh ReddyUAL DIFF REQNONormalThe [facility] HospitalComment on above: Performed By: #### CMP, LIPID, TSH #### [facility] [address] [place] [address] Dr. Hugh Izquierdo (RBC) [Entitic mass]28.5 wdWtjidl45.9-34.0The [facility] HospitalComment on above:Performed By: #### CMP, LIPID, TSH #### [facility] [address] [place] [address] Dr. Hugh Benitez (RBC) [Mass/Vol]30.9 g/mFBjioni66.9-35.2The [facility] HospitalComment on above:Performed By: #### CMP, LIPID, TSH #### [facility] [address] [place] [address] Dr. Hugh Benitez (RBC) [Entitic vol]92.3 tDOtgssb98.0-94.0The [facility] HospitalComment on above:Performed By: #### CMP, LIPID, TSH #### [facility] [address] [place] [address] Dr. Hugh Mariano #0.7 103/ulNormal0.3-0.8The [facility] HospitalComment on above:Performed By: #### CMP, LIPID, TSH #### [facility] [address] [place] [address] Dr. Hugh Bhagatocytes/100 WBC (Bld)10.6 %Normal1.7-12.0The [facility] Comment on above:Performed By: #### CMP, LIPID, TSH #### [facility] [address] [place] [address] Dr. Hugh Martinez #4.9 103/ulNormal1.4-6.5The [facility] HospitalComment on above:Performed By: #### CMP, LIPID, TSH #### [facility] [address] [place] [address] Dr. Hugh Haydenophils/100 WBC (Bld)71.3 %Jxlokf19.0-75.0The [facility] HospitalComment on above:Performed By: #### CMP, LIPID, TSH #### [facility] [address] [place] [address] Dr. Hugh Hope mean volume (Bld) [Entitic vol]9.4 fLCritically low 9.5-13.5The [facility] HospitalComment on above:Performed By: #### CMP, LIPID, TSH #### [facility] [address] [address] [address] Hugh LandisPLT249 103/rkUltxkx383-861Kiz [facility] on above: Performed By: #### CMP, LIPID, TSH #### [facility] [address] [address] [address] Hugh LandisRBC4.14 106/ulCritically low4.70-6.10The [facility] HospitalCom[facility] on above:Performed By: #### CMP, LIPID, TSH #### [facility] [address] [address] [address] Hugh LandisWBC6.9 103/ulNormal4.0-11.0The [facility] on above: Performed By: #### CMP, LIPID, TSH #### [facility] [address] [place] [address] Dr. Hugh LandisFERRITINon 75-28-1522Egboqjsc [Mass/Vol]154.0 ng/mLNormal 26.0-388.0The [facility] on above:Performed By: #### CMP, LIPID, TSH #### [facility] [address] [address] [address] Hugh LandisGLYCOHEMOGLOBIN A1Con 94-18-1227CEG RECOMMENDATIONSEE BELOWNormal The [facility] HospitalComforest [facility] center on above:Result Comment: ADA RECOMMENDED LIMIT 4.0 - 6.0 ADA THERAPEUTIC TARGET < 7.0 ACTION SUGGESTED > 7.0Performed By: #### PT #### [facility] [address] [place] [address] Dr. Hugh LandisGlucose [Mass/Vol]140 mg/dLNormalThAccess Hospital DaytonComforest health medical center on above:Performed By: #### PT #### [facility] [address] [place] [address] Dr. Hugh LandisHbA1c (Bld) [Mass fraction]6.5 %Critically high4.5-6.2The [facility] on above:Performed By: #### PT #### [facility] [address] [place] [address] Dr. Hugh Danielle AND TIBCon 08-08-2021% WDUFLOLYIO26.6 %NormalFlower HospitalComment on above:Performed By: #### CMP, LIPID, TSH #### [facility] [address] [place] [address] Dr. Hugh Danielle [Mass/Vol]45.0 ug/dLCritically low65.0-175.0The [facility] HospitalComment on above:Performed By: #### CMP, LIPID, TSH #### [facility] [address] [place] [address] Dr. Hugh LandisTIBC SVZNZY725.0 ug/yJRhbfmv756.0-450.0[facility] Comment on above:Performed By: #### CMP, LIPID, TSH #### [facility] [address] [place] [address] Dr. Hugh QuirogaID PROFILEon 38-51-3517HKZH-HDL RATIO NORMSEE [facility], IncComment on above:Result Comment: 3.3 - 4.4 LOW RISK 4.4 - 7.1 AVERAGE RISK 7.1 - 11.0 MODERATE RISK >11.0 HIGH RISKPerformed By: #### CMP, LIPID, TSH #### [facility] [address] [place] [address] Dr. Hugh Croftesterol [Mass/Vol]187 mg/dLNormal<=200The [facility] Comment on above:Performed By: #### CMP, LIPID, TSH #### [facility] [address] [place] [address] Dr. Hugh Croftesterol in HDL [Mass/Vol]51 mg/lJQkdqsi37-94Ibu [facility] HospitalComment on above:Performed By: #### CMP, LIPID, TSH #### [facility] [address] [place] [address] Dr. Hugh Croftesterol in LDL [Mass/Vol]101.8 mg/dLAdena Regional Medical CenterComforest health medical center on above:Performed By: #### CMP, LIPID, TSH #### [facility] [address] [place] [address] Dr. Hugh LandisCholesterol.total/Cholesterol in HDL [Mass ratio]3.7 {ratio} NormalThe [facility] HospitalComment on above:Performed By: #### CMP, LIPID, TSH #### [facility] [address] [place] [address] Dr. Hugh Rivera NORMAL> or = 60 mg/dl - LOW CARDIOVASCULAR RISK <40 mg/dl - HIGH CARDIOVASCULAR RISKAdena Regional Medical CenterComment on above:Performed By: #### CMP, LIPID, TSH #### [facility] [address] [place] [address] Dr. Hugh LandisLDL CALC NORMALSEE BELOWAdena Regional Medical CenterComment on above:Result Comment: <100 mg/dl OPTIMAL 100 - 129 mg/dl NEAR OR ABOVE OPTIMAL 130 - 159 mg/dl BORDERLINE HIGH 160 - 189 mg/dl HIGH >190 mg/dl VERY HIGH Performed By: #### CMP, LIPID, TSH #### [facility] [address] [place] [address] Dr. Hugh LandisTriglyceride [Mass/Vol]171 mg/dLCritically high<=150The [facility] HospitalComment on above:Performed By: #### CMP, LIPID, TSH #### [facility] [address] [place] [address] Dr. Hugh LandisVLDL CALC34.2 mg/dLNoSt. Mary's Medical Center, Ironton CampusComforest health medical center on above: Performed By: #### CMP, LIPID, TSH #### [facility] [address] [place] [address] Dr. Hugh LandisPROF 14(COMP METB)on 64-84-4770Kqwosgg [Mass/Vol]3.6 g/dLNormal 3.4-5.0The [facility] HospitalComment on above:Performed By: #### CMP, LIPID, TSH #### [facility] [address] [place] [address] Dr. Hugh LandisAlbumin/Globulin [Mass ratio]0.8 {ratio}NormalThe [facility] HospitalComment on above:Performed By: #### CMP, LIPID, TSH #### [facility] [address] [address] [address] Hugh SalemronP [Catalytic activity/Vol]64 U/SNdwrsq33-124Jzd [facility] HospitalComment on above:Performed By: #### CMP, LIPID, TSH #### [facility] [address] [address] [address] Hugh SalmeronT [Catalytic activity/Vol]28 U/URhfkdy26-46Xts [facility] HospitalComment on above:Performed By: #### CMP, LIPID, TSH #### [facility] [address] [address] [address] Hugh Binghamon gap [Moles/Vol]15.0 mmol/LNormalThe [facility] Comment on above:Performed By: #### CMP, LIPID, TSH #### [facility] [address] [place] [address] Dr. Hugh LandisAST [Catalytic activity/Vol]14 U/LCritically osn94-36Yse [facility] HospitalComment on above:Performed By: #### CMP, LIPID, TSH #### [facility] [address] [address] [address] Hugh LandisBilirubin [Mass/Vol]0.5 mg/dLNormal0.2-1.0The [facility] Comment on above:Performed By: #### CMP, LIPID, TSH #### [facility] [address] [address] [address] Hugh LandisCalcium [Mass/Vol]9.6 mg/dLNormal8.5-10.1The [facility] Comment on above:Performed By: #### CMP, LIPID, TSH #### [facility] [address] [address] [address] Hugh LandisChloride [Moles/Vol]105 mmol/USzhgib32-889Sjb [facility] Comment on above:Performed By: #### CMP, LIPID, TSH #### [facility] [address] [address] [address] Hugh LandisCO2 [Moles/Vol]23.5 mmol/CNxdebm75.0-32.0The [facility] Comment on above:Performed By: #### CMP, LIPID, TSH #### [facility] [address] [place] [address] Dr. Hugh LandisCreatinine [Mass/Vol]2.69 mg/dLCritically high0.70-1.30The [facility] HospitalComment on above:Performed By: #### CMP, LIPID, TSH #### [facility] [address] [place] [address] Dr. Hugh PaniaguaGFR-AF SAWORQNB96 mL/min/1.72s7Mxwapnyajt low>=60The [facility] HospitalComment on above:Performed By: #### CMP, LIPID, TSH #### [facility] [address] [place] [address] Dr. Hugh PaniaguaGFR-NON AF MXIHWSUE79 mL/min/1.56o0Dxfyuvhgmq low>=60The [facility] HospitalComment on above:Performed By: #### CMP, LIPID, TSH #### [facility] [address] [place] [address] Dr. Hugh LandisGlobulin (S) [Mass/Vol]4.3 g/dLNormalThe [facility] HospitalComment on above:Performed By: #### CMP, LIPID, TSH #### [facility] [address] [place] [address] Dr. Hugh LandisGlucose [Mass/Vol]80 mg/pRLzlzgi17-595GknFlower Hospital Comment on above:Performed By: #### CMP, LIPID, TSH #### [facility] [address] [place] [address] Dr. Hugh LandisPotassium [Moles/Vol]5.5 mmol/LCritically high3.5-5.1The [facility] HospitalComment on above:Performed By: #### CMP, LIPID, TSH #### [facility] [address] [place] [address] Dr. Hugh LandisProtein [Mass/Vol]7.9 g/dLNormal6.4-8.2[facility] Comment on above:Performed By: #### CMP, LIPID, TSH #### [facility] [address] [place] [address] Dr. Hugh Barrowum [Moles/Vol]138 mmol/WRyjjfh205-062JphFlower Hospital Comment on above:Performed By: #### CMP, LIPID, TSH #### [facility] [address] [place] [address] Dr. Hugh Herron nitrogen [Mass/Vol]47.0 mg/dLCritically high7.0-18.0The [facility] HospitalComment on above:Performed By: #### CMP, LIPID, TSH #### [facility] [address] [place] [address] Dr. Hugh Herron nitrogen/Creatinine [Mass ratio]17.5 mg/mgAdena Regional Medical CenterComment on above:Performed By: #### CMP, LIPID, TSH #### [facility] [address] [place] [address] Dr. Hugh MaeHoalex 81-44-1433CQW9.069 uIU/mLNormal0.358-3.740The [facility] HospitalComment on above:Performed By: #### CMP, LIPID, TSH #### [facility] [address] [place] [address] Dr. Hugh MEIER BELOWAdena Regional Medical CenterComment on above: Result Comment: <0.34 UIU/ml HYPERTHYROID 0.34-5.60 UIU/ml EUTHYROID >5.60 UIU/ml HYPOTHYROIDPerformed By: #### CMP, LIPID, TSH #### [facility] [address] [place] [address] Dr. Hugh LandisVITAMIN B12on 13-52-5823Imzuojfqa (Vitamin B12) [Mass/Vol]336.0 pg/cHXlglac974.0-986.0The [facility] HospitalComment on above:Performed By: #### CMP, LIPID, TSH #### [facility] [address] [place] [address] Dr. Hugh LandisVITAMIN D 25 OHon 70-72-4318IFN D 25-OH36.6 ng/mLNormalThe [facility] HospitalComment on above:Performed By: #### CMP, LIPID, TSH #### [facility] [address] [place] [address] Hugh Petit [facility] HospitalComment on above: Result Comment: <20 ng/mL Vit D deficient 20 - <30 ng/mL Vit D insufficient 30 - 100 ng/mL Vit D sufficient >100 ng/mL Potential ToxicityPerformed By: #### CMP, LIPID, TSH #### [facility] [address] [place] [address] Dr. Hugh LandisOHIOHEALTH 3 Son 12-45-4961XCZX[address]niTriHealth [facility] Department of Radiology [address] [place] [id number] Patient Name: SUKHDEEP SIMENTAL : 1965 Sex: M Age: Race: White Pt. Location: Patient Status: D Ordered Date: 07/21/2021 3:35:00 PM Completed Date: 07/21/2021 03:37 PM Requesting Provider: PAYTON HELM Attending Provider: PAYTON HELM Report Copy To: Signs & Symptoms: M17.11 Unilateral primary osteoarthritis, right knee I10 History: Comments: Evaluate Exam: KNEE RIGHT 3 S KNEE RIGHT 3 S 07/21/2021 3:37 PM CLINICAL INDICATIONS: M17.11 Unilateral [...] disruption. Electronically signed: Gina Richmond. Transcribed by: [email or web address], User Resident: Electronically Signed by: GINA RICHMOND @ 07/23/2021 10:50 PMNormalMercy Health Willard HospitalComment on above:Order Comment: EvaluateCBCon 04-36-6413Xgbtwiatyja distribution width (RBC) [Ratio]13.5 %Dwfxnw67.8-14.4 [facility] HospitalComment on above:Performed By: #### CBC, PT, PTT, BMP #### [facility] [employer] [address] [place] [address] [employer] [place] Winder: Good Melendez MD #### ANICOT #### [facility] [address] [place] [address] [employer] [place] Winder: Troy Link MDHematocrit (Bld) [Volume fraction]39.1 %Low 40.7-50.3Mer[facility] Lanterman Developmental CenterComment on above:Performed By: #### CBC, PT, PTT, BMP #### [facility] [employer] [address] [place] [address] [employer]: Good Melendez MD #### ANICOT #### [facility] [address] [place] [address] [employer]: Troy Link MDHemoglobin (Bld) [Mass/Vol]12.3 g/dLLow13.0-17.0 [facility] HospitalComment on above:Performed By: #### CBC, PT, PTT, BMP #### [address] [address] [employer]: Good Melendez MD #### ANICOT #### [facility] [address] [place], [place] [id number] [employer]: SEVERINO CuevasCH (RBC) [Entitic mass]28.8 cjLbfykk38.2-33.5 [facility] HospitalComment on above:Performed By: #### CBC, PT, PTT, BMP #### [address] [address] [employer]: Good Melendez MD #### ANICOT #### [address] [id number] [employer]: FUENTES CuevasC (RBC) [Mass/Vol]31.5 g/hGUsqjsw46.4-34.8 [facility] HospitalComment on above:Performed By: #### CBC, PT, PTT, BMP #### [address] [address] [employer]: Good Melendez MD #### ANICOT #### [address] [id number] [employer]: SEVERINO CuevasCV (RBC) [Entitic vol]91.6 gJVpedfg43.6-102.9 [facility] HospitalComment on above:Performed By: #### CBC, PT, PTT, BMP #### [address] [address] [employer]: Good Melendez MD #### ANICOT #### [address] [id number] [employer]: Troy Link MDNRBC Automated0.0 per 100 WBCNormal0.0Grant HospitalComment on above:Performed By: #### CBC, PT, PTT, BMP #### [facility] [address] [place] [address] [employer]: Good Melendez MD #### ANICOT #### [facility] [address] [place] [address] [employer]: Ila Cuevas mean volume (Bld) [Entitic vol]9.7 fL Normal8.1-13.5Grant HospitalComment on above:Performed By: #### CBC, PT, PTT, BMP #### [facility] [address] [place] [address] [employer]: Good Melendez MD #### ANICOT #### [facility] [address] [place] [address] [employer]: Mara Cuevas (Bld) [#/Vol]190 10*3/vFWqubpn134-407 [facility] HospitalComment on above:Performed By: #### CBC, PT, PTT, BMP #### [facility] [address] [place] [address] [employer]: Good Melendez MD #### ANICOT #### [facility] [address] [place] [address] [employer]: TOMMIE CuevasBC (Bld) [#/Vol]4.27 10*6/uLNormal4.21-5.77Grant HospitalComment on above:Performed By: #### CBC, PT, PTT, BMP #### [address] [address] [employer]: Good Melendez MD #### ANICOT #### [facility] [address] [place] [address] [employer]: Troy Link MDWBC (Bld) [#/Vol]8.7 10*3/uLNormal3.5-11.3MMission Community HospitalComment on above:Performed By: #### CBC, PT, PTT, BMP #### [address] [address] [employer]: Good Melendez MD #### ANICOT #### [facility] [address] [place], [place] [id number] [employer]: Samia Cuevas 63-09-9598fVXR Coag (Bld) [Time]20.8 s Ilqphd05.5-30.5Grant HospitalComment on above:Result Comment: IV Heparin Therapy Range: 48.6-77.8Performed By: #### CBC, PT, PTT, BMP #### [place] [address] [employer]: Good Melendez MD #### ANICOT #### [facility] [address] [place], [place] [id number] [employer]: Fernando Cuevas Coag (Bld) [Time]37.9 sHigh20.5-30.5Grant HospitalComment on above:Result Comment: IV Heparin Therapy Range: 48.6-77.8Performed By: #### CBC, PT, PTT, BMP #### [place] [address] [employer]: Good Melendez MD #### ANICOT #### [facility] [address] [place], [place] [id number] [employer]: Fernando Cuevas Coag (Bld) [Time]78.1 sHigh20.5-30.5Grant HospitalComment on above:Result Comment: IV Heparin Therapy Range: 48.6-77.8Performed By: #### CBC, PT, PTT, BMP #### [place] [address] [employer]: Good Melendez MD #### ANICOT #### [facility] [address] [place] [address] [employer]: Troy Link MDBasic Metab w/rfx MGon 07-17-2021(cont.)Normal Grant HospitalComment on above:Result Comment: Average GFR for 50-59 years old: 93 mL/min/1.73sq m Chronic Kidney Disease: <60 mL/min/1.73sq m Kidney failure: <15 mL/min/1.73sq m eGFR calculated using average adult body mass. Additional eGFR calculator available at: http://www.[employer]multiple_crcl_2012.htmPerformed By: #### CBC, PT, PTT, BMP #### [address] [id number] [employer]: Good Melendez MD #### ANICOT #### [facility] [address] [place] [id number] [employer]: Troy Link MDAniflo gap [Moles/Vol]9 mmol/LNormal9-17Grant HospitalComment on above:Performed By: #### CBC, PT, PTT, BMP #### [address] [id number] [employer]: Good Melendez MD #### ANICOT #### [facility] [address] [place] [address] [employer]: Troy Link MDCalcium [Mass/Vol]9.3 mg/dLNormal8.6-10.4Grant HospitalComment on above:Performed By: #### CBC, PT, PTT, BMP #### [facility] [employer] [address] [place] [id number] [employer]: Good Melendez MD #### ANICOT #### [facility] [address] [place] [address] [employer]: DEVANTE Cuevashloride [Moles/Vol]106 mmol/VJbjwnv20-946QlqrlGrant HospitalComment on above:Performed By: #### CBC, PT, PTT, BMP #### [facility] [address] [place] [address] [employer]: Good Melendez MD #### ANICOT #### [facility] [address] [place] [address] [employer]: DEVANTE CuevasO2 [Moles/Vol]23 mmol/ZRbpriq60-04BizmeGrant HospitalComment on above:Performed By: #### CBC, PT, PTT, BMP #### [address] [address] [employer]: Good Melendez MD #### ANICOT #### [facility] [address] [place] [address] [employer]: DEVANTE Cuevasreatinine [Mass/Vol]1.40 mg/dLHigh0.70-1.20Grant HospitalComment on above:Performed By: #### CBC, PT, PTT, BMP #### [facility] [address] [address] [employer]: Good Melendez MD #### ANICOT #### [facility] [address] [place] [id number] [employer]: Troy Link MDGFR, Amer>60Normal>60Grant HospitalComment on above:Performed By: #### CBC, PT, PTT, BMP #### [facility] [address] [place] [address] [employer]: Good Melendez MD #### ANICOT #### [facility] [address] [place] [address] [employer]: Troy Link MDGFR,non Amer52 mL/minLow>60[facility] Developmental CenterComment on above:Performed By: #### CBC, PT, PTT, BMP #### [facility] [address] [place] [address] [employer]: Good Melendez MD #### ANICOT #### [facility] [address] [place], [place] [id number] [employer]: Troy Link MDGlucose [Mass/Vol]170 mg/jALpyk23-95Helnc [facility]terman Developmental CenterComment on above:Performed By: #### CBC, PT, PTT, BMP #### [address] [address] [employer]: Good Melendez MD #### ANICOT #### [facility] [address] [place] [id number] [employer]: HEBER Cuevasotassium [Moles/Vol]4.6 mmol/LNormal3.7-5.3[facility]ter[facility] Developmental CenterComment on above:Performed By: #### CBC, PT, PTT, BMP #### [facility] [address] [place] [address] [employer]: Good Melendez MD #### ANICOT #### [facility] [address] [place], [place] [id number] [employer]: JESSICA Cuevasodium [Moles/Vol]138 mmol/VCblgac733-285Dsuft [facility]terman Developmental CenterComment on above:Performed By: #### CBC, PT, PTT, BMP #### [address] [address] [employer]: Good Melendez MD #### ANICOT #### [facility] [address] [place], [place] [id number] [employer]: Troy Link MDUrea nitrogen [Mass/Vol]33 mg/dLHigh6-20Grant HospitalComment on above:Performed By: #### CBC, PT, PTT, BMP #### [address] [address] [employer]: Good Melendez MD #### ANICOT #### [facility] [address] [place], [place] [id number] [employer]: Catrachita Cuevasc Metabolic Profon 07-17-2021(cont.)Normal Grant HospitalComment on above:Result Comment: Average GFR for 50-59 years old: 93 mL/min/1.73sq m Chronic Kidney Disease: <60 mL/min/1.73sq m Kidney failure: <15 mL/min/1.73sq m eGFR calculated using average adult body mass. Additional eGFR calculator available at: http://www.[employer]multiple_crcl_2012.htmPerformed By: #### CBC, PT, PTT, BMP #### [address] [address] [employer]: Good Melendez MD #### ANICOT #### [facility] [address] [place] [id number] [employer]: Troy Link MDAnion gap [Moles/Vol]8 mmol/LLow9-17Grant HospitalComment on above:Performed By: #### CBC, PT, PTT, BMP #### [facility] [employer] [address] [place] [address] [employer]: Good Melendez MD #### ANICOT #### [facility] [address] [place], [place] [id number] [employer]: Troy Link MDCalcium [Mass/Vol]9.5 mg/dLNormal8.6-10.4Grant HospitalComment on above:Performed By: #### CBC, PT, PTT, BMP #### [facility] [address] [place] [address] [employer]: Good Melendez MD #### YASSINET #### [facility] [address] [place] [address] [employer]: DEVANTE Cuevashloride [Moles/Vol]104 mmol/MHyibwl35-408VyrgcGrant HospitalComment on above:Performed By: #### CBC, PT, PTT, BMP #### [facility] [employer] [address] [place] [address] [employer]: Good Melendez MD #### YASSINET #### [address] [address] [employer]: DEVANTE CuevasO2 [Moles/Vol]23 mmol/DNiyuzu73-96IjwhbGrant HospitalComment on above:Performed By: #### CBC, PT, PTT, BMP #### [facility] [address] [place] [address] [employer]: Good Melendez MD #### YASSINET #### [address] [address] [employer]: DEVANTE Cuevasreatinine [Mass/Vol]1.34 mg/dLHigh0.70-1.20Grant HospitalComment on above:Performed By: #### CBC, PT, PTT, BMP #### [facility] [employer] [address] [place] [address] [employer]: Good Melendez MD #### ANAPARNAT #### [facility] [address] [place] [address] [employer]: Troy Link MDGFR, Amer>60Normal>60Grant HospitalComment on above:Performed By: #### CBC, PT, PTT, BMP #### [facility] [address] [place] [address] [employer]: Good Melendez MD #### ANICOT #### [address] [address] [employer]: Tory Link MDGFR,non Amer55 mL/minLow>60[facility] Developmental CenterComment on above:Performed By: #### CBC, PT, PTT, BMP #### [address] [address] [employer]: Good Melendez MD #### ANICOT #### [address] [address] [employer]: Troy Link MDGlucose [Mass/Vol]136 mg/wSSufl43-12Tineh [facility]terman Developmental CenterComment on above:Performed By: #### CBC, PT, PTT, BMP #### [address] [address] [employer]: Good Melendez MD #### ANICOT #### [address] [address] [employer]: HEBER Cuevasotassium [Moles/Vol]4.7 mmol/LNormal3.7-5.3[facility] Developmental CenterComment on above:Performed By: #### CBC, PT, PTT, BMP #### [address] [address] [employer]: Good Melendez MD #### ANICOT #### [facility] [address] [place] [address] [employer]: JESSICA Cuevasodium [Moles/Vol]135 mmol/UIknlak970-903AjdnlRedwood Memorial HospitalComment on above:Performed By: #### CBC, PT, PTT, BMP #### [address] [place] [address] [employer]: Good Melendez MD #### ANICOT #### [facility] [address] [place], [place] [id number] [employer]: Troy Link MDUrea nitrogen [Mass/Vol]31 mg/dLHigh6-20Grant HospitalComment on above:Performed By: #### CBC, PT, PTT, BMP #### [facility] [address] [place] [address] [employer]: Good Melendez MD #### ANICOT #### [facility] [address] [place], [place] [id number] [employer]: Troy Link MDFibrinogenon 89-32-6894Yrqyhidpkf443 mg/dLNormal 140-420Grant HospitalComment on above:Performed By: #### CBC, PT, PTT, BMP #### [facility] [address] [place] [address] [employer]: Good Melendez MD #### ANICOT #### [facility] [address] [place] [address] [employer]: Troy Link MDFibrinogen395 mg/yGPbyjlv192-644IwxirGrant HospitalComment on above:Performed By: #### CBC, PT, PTT, BMP #### [facility] [address] [place] [address] [employer]: Good Melendez MD #### ANICOT #### [facility] [address] [place], [place] [id number] [employer]: Troy Link MDHemoglobin A1Con 15-66-6590Fvpnbpa [Mass/Vol]169 mg/dLNormalGrant HospitalComment on above:Result Comment: The ADA and AACC recommend providing the estimated average glucose result to permit better patient understanding of their HBA1c result.Performed By: #### CBC, PT, PTT, BMP #### [facility] [address] [place] [address] [employer]: Good Melendez MD #### ANICOT #### [facility] [address] [place] [address] [employer]: Troy Link MDHbA1c (Bld) [Mass fraction]7.5 %High4.0-6.0Grant HospitalComment on above:Performed By: #### CBC, PT, PTT, BMP #### [facility] [address] [place] [address] [employer]: Good Melendez MD #### ANICOT #### [facility] [address] [place] [address] [employer]: Juan David Cuevas [id number] Coag (PPP) [Relative time]1.2 {INR}NormalGrant HospitalComment on above:Result Comment: Therapeutic Range: Moderate Anticoagulant Intensity: INR = 2.0-3.0 High Anticoagulant Intensity: INR = 2.5-3.5Performed By: #### CBC, PT, PTT, BMP #### [facility] [address] [address] [employer]: Good Melendez MD #### ANICOT #### [facility] [address] [place] [address] [employer]: ZONIA Cuevas Coag (PPP) [Time]12.6 sHigh9.1-12.3[facility] Developmental CenterComment on above:Performed By: #### CBC, PT, PTT, BMP #### [facility] [address] [place] [address] [employer]: Good Melendez MD #### ANICOT #### [facility] [address] [place] [address] [employer]: Troy Link MDTroponinon 44-98-5500Vwbgdrvu, High Sens38 ng/L [address] StreetComment on above:Result Comment: High Sensitivity Troponin values cannot be compared with other Troponin methodologies. Patients with high levels of Biotin oral intake (i.e >5mg/day) may have falsely decreased Troponin levels. Samples collected within 8 hours of biotin intake may require additional information for diagnosis.Performed By: #### CBC, PT, PTT, BMP #### [facility] [address] [place] [address] [employer]: Good Melendez MD #### ANICOT #### [facility] [address] [place], [place] [address] [employer]: Samia Cuevas 80-51-4607qNRJ Coag (Bld) [Time]51.1 sHigh 20.5-30.5Grant HospitalComment on above:Result Comment: IV Heparin Therapy Range: 48.6-77.8Performed By: #### CBC, PT, PTT, BMP #### [facility] [address] [place] [address] [employer]: Good Melendez MD #### ANICOT #### [facility] [address] [place], [place] [address] [employer]: Fernando Cuevas Coag (Bld) [Time]31.1 sHigh20.5-30.5Grant HospitalComment on above:Result Comment: IV Heparin Therapy Range: 48.6-77.8Performed By: #### CBC, PT, PTT, BMP #### [facility] [address] [place] [address] [employer]: Good Melendez MD #### ANICOT #### [facility] [address] [place], [place] [id number] [employer]: Troy Link MDBrain Natri. Peptideon 79-61-9062Idumnfhrfvi peptide B (Bld) [Mass/Vol]1492 pg/mLHigh<300[facility] Comment on above:Result Comment: An age-independent cutoff point of 300 pg/ml has a 98% negative predictive value excluding acute heart failure.Performed By: #### CBC, PT, PTT, BMP #### [address] [address] [employer]: Good Melendez MD #### ANICOT #### [facility] [address] [place], [place] [id number] [employer]: DEVANTE Cuevasflo 49-27-6839Uclahnwchkf distribution width (RBC) [Ratio]13.6 %Exthhx82.8-14.4Grant HospitalComment on above:Performed By: #### CBC, PT, PTT, BMP #### [place] [address] [employer]: Good Melendez MD #### ANICOT #### [facility] [address] [place] [address] [employer]: Troy Link MDHematocrit (Bld) [Volume fraction]40.3 %Low 40.7-50.3[facility] Developmental CenterComment on above:Performed By: #### CBC, PT, PTT, BMP #### [address] [address] [employer]: Good Melendez MD #### ANICOT #### [facility] [address] [place] [address] [employer]: Troy Link MDHemoglobin (Bld) [Mass/Vol]13.0 g/dLNormal 13.0-17.0Grant HospitalComment on above:Performed By: #### CBC, PT, PTT, BMP #### [facility] [employer] [address] [place] [address] [employer]: Good Melendez MD #### ANICOT #### [facility] [address] [place] [address] [employer]: SEVERINO CuevasCH (RBC) [Entitic mass]28.7 foVnhjbh32.2-33.5 [facility] HospitalComment on above:Performed By: #### CBC, PT, PTT, BMP #### [address] [address] [employer]: Good Melendez MD #### ANICOT #### [facility] [address] [place] [address] [employer]: FUENTES CuevasC (RBC) [Mass/Vol]32.3 g/eYYlciaz15.4-34.8 [facility] HospitalComment on above:Performed By: #### CBC, PT, PTT, BMP #### [address] [address] [employer]: Good Melendez MD #### ANICOT #### [address] [address] [employer]: SEVERINO CuevasCV (RBC) [Entitic vol]89.0 tWHpqjxr51.6-102.9 [facility] HospitalComment on above:Performed By: #### CBC, PT, PTT, BMP #### [address] [address] [employer]: Good Melendez MD #### ANICOT #### [facility] [address] [place] [address] [employer]: rToy Link MDNRBC Automated0.0 per 100 WBCNormal0.0Grant HospitalComment on above:Performed By: #### CBC, PT, PTT, BMP #### [address] [address] [employer]: Good Melendez MD #### ANICOT #### [facility] [address] [place] [address] [employer]: Ila Cuevas mean volume (Bld) [Entitic vol]9.6 fL Normal8.1-13.5Grant HospitalComment on above:Performed By: #### CBC, PT, PTT, BMP #### [address] [address] [employer]: Good Melendez MD #### ANICOT #### [facility] [address] [place] [address] [employer]: Mara Cuevas (Bld) [#/Vol]203 10*3/eXFcxhwe800-910 [facility] HospitalComment on above:Performed By: #### CBC, PT, PTT, BMP #### [address] [address] [employer]: Good Melendez MD #### ANICOT #### [facility] [address] [place], [place] [address] [employer]: Troy Link MDRBC (Bld) [#/Vol]4.53 10*6/uLNormal4.21-5.77Grant HospitalComment on above:Performed By: #### CBC, PT, PTT, BMP #### [address] [address] [employer]: Good Melendez MD #### ANICOT #### [facility] [address] [place] [address] [employer]: Troy Link MDWBC (Bld) [#/Vol]6.8 10*3/uLNormal3.5-11.3MBaxter Regional Medical Center Medical CenterComment on above:Performed By: #### CBC, PT, PTT, BMP #### [facility] [address] [place] [address] [employer]: Good Melendez MD #### ANICOT #### [facility] [address] [place] [address] [employer]: Alda Cuevas 00-92-6520Icswoccm, High Sens59 ng/L Critically highGrant HospitalComment on above:Result Comment: High Sensitivity Troponin values cannot be compared with other Troponin methodologies. Patients with high levels of Biotin oral intake (i.e >5mg/day) may have falsely decreased Troponin levels. Samples collected within 8 hours of biotin intake may require additional information for diagnosis.Performed By: #### CBC, PT, PTT, BMP #### [facility] [address] [place] [address] [employer]: Good Melendez MD #### ANICOT #### [facility] [address] [place], [place] [id number] [employer]: Troy Link MDEKG 12 LeadOrdered By: Matias Varela on 05-26-2021 Atrial [id number] Health Work Phone: p [place]-96deD.[facility] Work Phone: p-R Qsnfwrip760 [facility] Work Phone: Q-T Ndqlroke168 [facility] Work Phone: QRS Nbgvaexg18 [facility] Work Phone: QTc Calculation (Tabby)466 [facility] Work Phone: T [place]-116deD.[facility] Work Phone: T [place]-114degrWay[facility] Work Phone: Ventricular [id number] Health Work Phone: [employer] Work Phone: ekg 12 Leadon 48-68-2413Mro lead reversal Sinus Tachycardia V Leads placement error Repeat ECG When compared with ECG of 08-MAY-2021 11:42, Significant changes have occurredMHPN STMatias Giron MD - 05/26/2021 Arm lead reversal Sinus Tachycardia V Leads placement error Repeat ECG When compared with ECG of 08-MAY-2021 11:42, Significant changes have occurredAkron Children'S HospitalPathfinder Technologies Phone: sURGICAL PATHOLOGY REPORTon 14-28-5485Yqwoywlz Pathology Report-- Diagnosis -- STOMACH, SLEEVE GASTRECTOMY: - NORMAL [...] with no areas of granularity or masses. Patient Care Coordinator sections 1cs. tm Microscopic Description Sections of gastric wall show lamina propria without evidence of significant inflammation. There is no evidence of intestinal metaplasia or dysplasia. There is no evidence of organisms suspicious for Helicobacter with the routine H&E stain. SURGICAL PATHOLOGY CONSULTATION Patient Name: SUKHDEEP SIMENTAL [facility] Rec: [id number] Path Number: [id number] [facility]ITALNatural [facility] ANATOMIC PATHOLOGY [address] [place] [address]. [place], [place] [address] [facility] HospitalBasic Metabolic Panelon 05-25-2021 Anion gap [Moles/Vol]10 mmol/L9 - 17 mmol/LMercy HealthCalcium [Mass/Vol]9.1 mg/dL8.6 - 10.4 mg/dLGalion Community Hospital HealthChloride [Moles/Vol]106 mmol/L98 - 107 mmol/L [facility] HealthCO2 [Moles/Vol]23 mmol/L20 - 31 mmol/LMercy HealthCreatinine [Mass/Vol]1.1 mg/dL0.70 - 1.20 mg/dLGalion Community Hospital HealthGFR >60>60 mL/minGalion Community Hospital HealthGFR Non->60>60 mL/minGalion Community Hospital HealthGFR/1.73 sq M.predicted MDRD (S/P/Bld) [Vol rate/Area][facility] Medical CenterComment on above:Average GFR for 50-59 years old: 93 mL/min/1.73sq m Chronic Kidney Disease: <60 mL/min/1.73sq m Kidney failure: <15 mL/min/1.73sq m eGFR calculated using average adult body mass. Additional eGFR calculator available at: http://www.[employer]/multiple_crcl_2011.htm Glucose [Mass/Vol]127 mg/vCEgzl09 - 99 mg/dLUniversity Hospitals Portage Medical CenterInterpretation and review of laboratory resultsAbnormalUniversity Hospitals Portage Medical CenterPotassium [Moles/Vol]4.8 mmol/L 3.7 - 5.3 mmol/LMercy HealthSodium [Moles/Vol]139 mmol/L135 - 144 mmol/LMercy HealthUrea nitrogen (BldV) [Mass/Vol]24 mg/dLHigh6 - 20 mg/dLAspirus Wausau HospitalBasic Metabolic Profon 05-25-2021(cont.)[facility] CenterComment on above:Result Comment: Average GFR for 50-59 years old: 93 mL/min/1.73sq m Chronic Kidney Disease: <60 mL/min/1.73sq m Kidney failure: <15 mL/min/1.73sq m eGFR calculated using average adult body mass. Additional eGFR calculator available at: http://www.[employer]/multiple_crcl_2012.htmPerformed By: #### CBC, PT, PTT, BMP #### [facility] [address] [place] [address] [employer]: Good Melendez MD #### YASSINET #### [facility] [address] [place] [address] [employer]: Kylee Cuevas gap [Moles/Vol]10 mmol/LNormal9-17Grant HospitalComment on above:Performed By: #### CBC, PT, PTT, BMP #### [facility] [address] [place] [address] [employer]: Good Melendez MD #### ANICOT #### [facility] [address] [place] [address] [employer]: DEVANTE Cuevasalcium [Mass/Vol]9.1 mg/dLNormal8.6-10.4Grant HospitalComment on above:Performed By: #### CBC, PT, PTT, BMP #### [address] [address] [address] [place] Winder: Good Melendez MD #### ANICOT #### [facility] [address] [place] [address] [id number] [place] Winder: DEVANTE Cuevashloride [Moles/Vol]106 mmol/VVphspn40-110KitscGrant HospitalComment on above:Performed By: #### CBC, PT, PTT, BMP #### [address] [address] Recoil [place] Winder: Good Melendez MD #### ANICOT #### [facility] [address] [place], [place] [id number] Recoil [place] Winder: DEVANTE CuevasO2 [Moles/Vol]23 mmol/FUmboiz54-38SfzoiGrant HospitalComment on above:Performed By: #### CBC, PT, PTT, BMP #### [facility] [address] [place] [address] Recoil [place] Winder: Good Melendez MD #### ANICOT #### [facility] [address] [place] [address] Recoil [place] Winder: Troy Link, MDCreatinine [Mass/Vol]1.10 mg/dLNormal0.70-1.20 Grant HospitalComment on above:Performed By: #### CBC, PT, PTT, BMP #### [address] [address] Recoil [place] Winder: Good Melendez MD #### ANICOT #### [facility] [address] [place], [place] [phone] Recoil [place] Winder: Troy Link MDGFR, Amer>60Normal>60Mer[facility] Lanterman Developmental CenterComment on above:Performed By: #### CBC, PT, PTT, BMP #### [address] [address] Recoil [place] Winder: Good Melendez MD #### ANICOT #### [facility] [address] [place] [address] [phone] Recoil [place] Winder: Troy Link MDGFR,non Amer>60Normal>60[facility]terman Developmental CenterComment on above:Performed By: #### CBC, PT, PTT, BMP #### [address] [address] Recoil [place] Winder: Good Melendez MD #### ANICOT #### [facility] [address] [place] [address] [phone] Recoil [place] Winder: Troy Link MDGlucose [Mass/Vol]127 mg/iVNfrv81-18Vyxvo Lanterman Developmental CenterComment on above:Performed By: #### CBC, PT, PTT, BMP #### [address] [address] Recoil [place] Winder: Good Melendez MD #### ANICOT #### [facility] [address] [place], [place] [id number] Recoil [place] Winder: HEBER Cuevasotassium [Moles/Vol]4.8 mmol/LNormal3.7-5.3Mer[facility] Lanterman Developmental CenterComment on above:Performed By: #### CBC, PT, PTT, BMP #### [facility] [address] [place] [address] [phone] Recoil [place] Winder: Good Melendez MD #### ANICOT #### [facility] [address] [place] [address] Recoil [place] Winder: JESSICA Cuevasodium [Moles/Vol]139 mmol/WRgmznz680-774YevgzGrant HospitalComment on above:Performed By: #### CBC, PT, PTT, BMP #### [facility] [address] [place] [address] [phone] Recoil [place] Winder: Good Melendez MD #### ANICOT #### [facility] [address] [place] [address] Recoil [place] Winder: Troy Link MDUrea nitrogen [Mass/Vol]24 mg/dLHigh6-20Grant HospitalComment on above:Performed By: #### CBC, PT, PTT, BMP #### [facility] [address] [place] [address] [phone] Recoil [place] Winder: Good Melendez MD #### ANICOT #### [facility] [address] [place] [address] Recoil [place] Winder: DEVANTE Cuevasflo 24-12-9217Ldkzqbljkgn distribution width (RBC) [Ratio]13.9 %Yyyzru46.8-14.4Grant HospitalComment on above:Performed By: #### CBC, PT, PTT, BMP #### [facility] [address] [phone] Recoil [place] Winder: Good Melendez MD #### ANICOT #### [facility] [address] [place] [address] Recoil [place] Winder: Troy Link MDHematocrit (Bld) [Volume fraction]39.5 %Low 40.7-50.3MMission Community HospitalComment on above:Performed By: #### CBC, PT, PTT, BMP #### [address] [address] Recoil [place] Winder: Good Melendez MD #### ANICOT #### [address] [phone] Recoil Spring Winder: Troy Link MDHemoglobin (Bld) [Mass/Vol]12.2 g/dLLow13.0-17.0 Grant HospitalComment on above:Performed By: #### CBC, PT, PTT, BMP #### [address] [address] Recoil [place] Winder: Good Melendez MD #### ANICOT #### [address] [phone] Recoil Spring Winder: SEVERINO CuevasCH (RBC) [Entitic mass]30.2 hnPrxuin25.2-33.5 Grant HospitalComment on above:Performed By: #### CBC, PT, PTT, BMP #### [address] [phone] Recoil [place] Winder: Good Melendez MD #### ANICOT #### [address] [phone] Recoil [place] Winder: SEVERINO CuevasCHC (RBC) [Mass/Vol]30.9 g/vPBlqghq74.4-34.8 Grant HospitalComment on above:Performed By: #### CBC, PT, PTT, BMP #### [address] [phone] Recoil [place] Winder: Good Melendez MD #### ANICOT #### [address] [address] Recoil [place] Winder: SEVERINO CuevasCV (RBC) [Entitic vol]97.8 wTKbcpvf08.6-102.9 Grant HospitalComment on above:Performed By: #### CBC, PT, PTT, BMP #### [address] [address] [place]oil [place] Winder: Good Melendez MD #### ANICOT #### [facility] [address] [place] [address] Recoil Spring Winder: Troy Link MDNRBC Automated0.0 per 100 WBCNormal0.0Grant HospitalComment on above:Performed By: #### CBC, PT, PTT, BMP #### [place] [address] Recoil Spring Winder: Good Melendez MD #### ANICOT #### [address] [address] Recoil [place] Winder: Ila Cuevas mean volume (Bld) [Entitic vol]8.8 fL Normal8.1-13.5Grant HospitalComment on above:Performed By: #### CBC, PT, PTT, BMP #### [address] [phone] Recoil [place] Winder: Good Melendez MD #### ANICOT #### [facility] [address] [place] [address] Recoil Spring Winder: Mara Cuevas (Bld) [#/Vol]263 10*3/cHYfdpre177-899 Grant HospitalComment on above:Performed By: #### CBC, PT, PTT, BMP #### [address] [address] Recoil [place] Winder: Good Melendez MD #### ANICOT #### [facility] [address] [place] [address] Recoil [place] Winder: TOMMIE CuevasBC (Bld) [#/Vol]4.04 10*6/uLLow4.21-5.77Grant HospitalComment on above:Performed By: #### CBC, PT, PTT, BMP #### [address] [phone] Recoil [place] Winder: Good Melendez MD #### ANICOT #### [facility] [address] [place], [place] [phone] Recoil [place] Winder: Troy Link MDWBC (Bld) [#/Vol]10.8 10*3/uLNormal3.5-11.3[facility]terman Developmental CenterComment on above:Performed By: #### CBC, PT, PTT, BMP #### [address] [phone] Recoil [place] Winder: Good Melendez MD #### ANICOT #### [facility] [address] [place], [place] [phone] Recoil Spring Winder: Troy Link MDHematocrit (Bld) [Volume fraction]39.5 %Low40.7 - 50.3 %[facility] Medical CenterHemoglobin.gastrointestinal spec 1 Ql (Stl)12.2 g/dLLow13.0 - 17.0 g/dLUniversity Hospitals Portage Medical CenterInterpretation and review of laboratory resultsAbnormal [facility] HospitalH (RBC) [Entitic mass]30.2 pg25.2 - 33.5 pgMercy Health West HospitalHC (RBC) [Mass/Vol]30.9 g/dL28.4 - 34.8 g/dLMercy Health West HospitalV (RBC) [Entitic vol]97.8 fL 82.6 - 102.9 fLUniversity Hospitals Portage Medical CenterNRBC Automated0.00.0 per 100 WBCUniversity Hospitals Portage Medical CenterPlatelet distribution width (Bld) [Ratio]13.9 %11.8 - 14.4 %[facility] Medical CenterPlatelet mean volume (Bld) [Entitic vol]8.8 fL8.1 - 13.5 fLGalion Community Hospital HealthPlatelets (Bld) [#/Vol] 263 10*3/uLGalion Community Hospital HealthRBC (Bld) [#/Vol]4.04 10*6/uLLow4.21 - 5.77 m/[facility] HealthWBC (Bld) [#/Vol]10.8 10*3/uLSelect Medical Specialty Hospital - [facility] North HealthMagnesiumon 78-89-6688Deukogeej [Mass/Vol]1.9 mg/dLNormal1.6-2.6Mer[facility]terman Developmental CenterComment on above:Performed By: #### CBC, PT, PTT, BMP #### [facility] [address] [place], [place] [id number] Recoil Spring Winder: Good Melendez MD #### ANICOT #### [facility] [address] [place] [address] Recoil Spring Winder: Troy Link MDMagnesium [Mass/Vol]1.9 mg/dL1.6 - 2.6 mg/dLAspirus Wausau HospitalSurgical Pathologyon 67-75-4230Wjgwmunc Pathology(NOTE) -- Diagnosis -- STOMACH, SLEEVE GASTRECTOMY: - [...] with no areas of granularity or masses. Patient Care Coordinator sections 1cs. tm Microscopic Description Sections of gastric wall show lamina propria without evidence of significant inflammation. There is no evidence of intestinal metaplasia or dysplasia. There is no evidence of organisms suspicious for Helicobacter with the routine CANDY stain. SURGICAL PATHOLOGY CONSULTATION Patient Name: SUKHDEEP SIMENTAL [facility] Rec: [id number] Path Number: [id number] [place] [address] [facility] ANATOMIC PATHOLOGY [address] [facility]. [place], [place] [address] NoKindred Hospital LimaComment on above: Performed By: #### CBC, PT, PTT, BMP #### [facility] [address] [place] [address] [phone] Recoil Spring Winder: Good Melendez MD #### ANICOT #### [facility] [address] [place] [address] Recoil Spring Winder: Troy Link MDManchester Memorial Hospital Metabolic Panelon 97-78-2853Vnlyb gap [Moles/Vol]13 mmol/L9 - 17 mmol/LMercy HealthCalcium [Mass/Vol]9.1 mg/dL8.6 - 10.4 mg/dLMercy HealthChloride [Moles/Vol]102 mmol/L98 - 107 mmol/LMercy Health CO2 [Moles/Vol]17 mmol/LLow20 - 31 mmol/LMercy HealthCreatinine [Mass/Vol]1.16 mg/dL0.70 - 1.20 mg/dLAkron Children'S Hospitalcy HealthGFR >60>60 mL/minGalion Community Hospital Health GFR Non->60>60 mL/minMercy HealthGFR/1.73 sq M.predicted MDRD (S/P/Bld) [Vol rate/Area][facility] Medical CenterComment on above:Average GFR for 50-59 years old: 93 mL/min/1.73sq m Chronic Kidney Disease: <60 mL/min/1.73sq m Kidney failure: <15 mL/min/1.73sq m eGFR calculated using average adult body mass. Additional eGFR calculator available at: http://www.[employer].com/multiple_crcl_2011.htm Glucose [Mass/Vol]203 mg/qHVifg99 - 99 mg/dLGalion Community Hospital HealthInterpretation and review of laboratory resultsAbnoFormerly [facility] HealthPotassium [Moles/Vol]4.2 mmol/L 3.7 - 5.3 mmol/LMercy HealthSodium [Moles/Vol]132 mmol/PNob216 - 144 mmol/LMercy HealthUrea nitrogen (BldV) [Mass/Vol]29 mg/dLHigh6 - 20 mg/dLAspirus Wausau HospitalBasic Metabolic Profon 05-24-2021(cont.)NormalGrant HospitalComment on above:Result Comment: Average GFR for 50-59 years old: 93 mL/min/1.73sq m Chronic Kidney Disease: <60 mL/min/1.73sq m Kidney failure: <15 mL/min/1.73sq m eGFR calculated using average adult body mass. Additional eGFR calculator available at: http://www.[employer]/multiple_crcl_2012.htmPerformed By: #### CBC, BMP #### [facility] [address] [place] [address] Recoil [place] Winder: Good Melendez MDAnion gap [Moles/Vol]13 mmol/LNormal9-17Grant HospitalComment on above:Performed By: #### CBC, BMP #### [facility] [address] [place] [address] Recoil [place] Winder: Good Melendez MDCalcium [Mass/Vol]9.1 mg/dLNormal8.6-10.4Grant HospitalComment on above:Performed By: #### CBC, BMP #### [facility] [address] [place] [address] Recoil [place] Winder: DEVANTE Fowlerhloride [Moles/Vol]102 mmol/SNxgcwm53-256DfgphGrant HospitalComment on above:Performed By: #### CBC, BMP #### [facility] [address] [place] [address] Rec[employer] [place] Winder: Good Melendez MDCO2 [Moles/Vol]17 mmol/HAeb01-73GvsnxGrant HospitalComment on above:Performed By: #### CBC, BMP #### [employer] [address] [place] [address] Recoil [place] Winder: Good Melendez MDCreatinine [Mass/Vol]1.16 mg/dLNormal0.70-1.20 Grant HospitalComment on above:Performed By: #### CBC, BMP #### [address] [address] Recoil [place] Winder: Good Melendez MDGFR, Amer>60Normal>60[facility]terman Developmental CenterComment on above:Performed By: #### CBC, BMP #### [address] [address] Recoil [place] Winder: Good Melendez MDGFR,non Amer>60Normal>60Grant HospitalComment on above:Performed By: #### CHERYLE, BMP #### [place] [address] Recoil Spring Winder: Good Melendez MDGlucose [Mass/Vol]203 mg/wOYdlc48-03Essie Lanterman Developmental CenterComment on above:Performed By: #### CHERYLE, BMP #### [place] [address] Recoil Spring Winder: Good Melendez MDPotassium [Moles/Vol]4.2 mmol/LNormal3.7-5.3 Grant HospitalComment on above:Performed By: #### CBC, BMP #### [place] [address] Recoil [place] Winder: Good Melendez MDSodium [Moles/Vol]132 mmol/IRan251-518HvtyuGrant HospitalComment on above:Performed By: #### CBC, BMP #### [address] [address] Recoil [place] Winder: Good Melendez MDUrea nitrogen [Mass/Vol]29 mg/dLHigh6-20Grant HospitalComment on above:Performed By: #### CBC, BMP #### [address] [address] Recoil Spring Winder: Blue Fowler 17-77-3591Uqiebdpemhh distribution width (RBC) [Ratio]14.0 %Vyfvsr29.8-14.4Grant HospitalComment on above:Performed By: #### CBC, BMP #### [address] [address] Recoil [place] Winder: Good Melendez MDHematocrit (Bld) [Volume fraction]41.0 %Normal 40.7-50.3Mregency hospital cleveland easty [facility]terman Developmental CenterComment on above:Performed By: #### CBC, BMP #### [address] [address] Recoil [place] Winder: Good Melendez MDHemoglobin (Bld) [Mass/Vol]12.7 g/dLLow13.0-17.0 Grant HospitalComment on above:Performed By: #### CBC, BMP #### [address] [address] Recoil [place] Winder: SEVERINO FowlerCH (RBC) [Entitic mass]29.5 lqMkiqpv36.2-33.5 Grant HospitalComment on above:Performed By: #### CBC, BMP #### [address] [address] Recoil [place] Winder: SEVERINO FowlerCHC (RBC) [Mass/Vol]31.0 g/jOPthhao32.4-34.8 Grant HospitalComment on above:Performed By: #### CBC, BMP #### [address] [address] Recoil [place] Winder: SEVERINO FowlerCV (RBC) [Entitic vol]95.3 gWHwhqav92.6-102.9 Grant HospitalComment on above:Performed By: #### CBC, BMP #### [facility] [employer] [facility] [place] [address] Recoil Spring Winder: ROSIE Fowler Automated0.0 per 100 WBCNormal0.0Grant HospitalComment on above:Performed By: #### CBC, BMP #### [address] [address] Recoil [place] Winder: Miguel Fowlertelet mean volume (Bld) [Entitic vol]8.8 fL Normal8.1-13.5Grant HospitalComment on above:Performed By: #### CBC, BMP #### [facility] [employer] [address] [place] [address] Recoil Spring Winder: Miguel Fowlertelets (Bld) [#/Vol]273 10*3/sCYxjspl119-732 Grant HospitalComment on above:Performed By: #### CBC, BMP #### [address] [address] Recoil Spring Winder: SANTHOSH Fowler (Bld) [#/Vol]4.30 10*6/uLNormal4.21-5.77 Grant HospitalComment on above:Performed By: #### CBC, BMP #### [address] [address] Recoil Spring Winder: BAILEY Fowler (Bld) [#/Vol]9.6 10*3/uLNormal3.5-11.3MMission Community HospitalComment on above:Performed By: #### CBC, BMP #### [address] [address] Recoil Spring Winder: ENOC Fowler without Diffon 90-36-6832Fvlmsndeow (Bld) [Volume fraction]41.0 %40.7 - 50.3 %[facility] Medical CenterHemoglobin.gastrointestinal spec 1 Ql (Stl)12.7 g/dLLow13.0 - 17.0 g/dLUniversity Hospitals Portage Medical CenterInterpretation and review of laboratory resultsAbnormalMercy Health West HospitalH (RBC) [Entitic mass]29.5 pg25.2 - 33.5 pgMercy Health West HospitalHC (RBC) [Mass/Vol]31.0 g/dL28.4 - 34.8 g/dLMercy Health West HospitalV (RBC) [Entitic vol]95.3 fL82.6 - 102.9 fLUniversity Hospitals Portage Medical CenterNRBC Automated0.00.0 per 100 WBCUniversity Hospitals Portage Medical CenterPlatelet distribution width (Bld) [Ratio]14.0 %11.8 - 14.4 % [facility] Medical CenterPlatelet mean volume (Bld) [Entitic vol]8.8 fL8.1 - 13.5 fLUniversity Hospitals Portage Medical CenterPlatelets (Bld) [#/Vol]273 10*3/[facility] HospitalRBC (Bld) [#/Vol]4.30 10*6/uL4.21 - 5.77 m/Wayne HospitalWBC (Bld) [#/Vol]9.6 10*3/[facility] [place][note 2]COVID-19, Rapidon 73-39-1905MMOO-CoV-2 (COVID-19) RNA MUKUL+probe Ql (Unsp spec)Not detectedNot DetectedUniversity Hospitals Portage Medical CenterComment on above: Rapid NAAT: The specimen is [...] management decisions. Fact sheet for Healthcare Providers: https://www.fda.gov/media/841122/download Fact sheet for Patients: https://www.fda.gov/media/919182/download Methodology: Isothermal Nucleic Acid Amplification Specimen Description.NASOPHARYNGEAL SWABMerAtrium Health [facility] HealthCalcium, Ionicon 07-21-7911Nrcicfu [Moles/Vol]1.31 mmol/LNormal1.13-1.33Grant HospitalComment on above:Performed By: #### IOCAL, MG, BRITTANIE #### [facility] [address] [place], [place] [phone] Recoil Spring Winder: Good Melendez MDCalcium, Ionizedon 73-77-5637Zlwsifh [Moles/Vol] 1.31 mmol/L1.13 - 1.33 mmol/LMercy [facility] HealthMagnesiumon 05-24-2021 Magnesium [Mass/Vol]2.0 mg/dLNormal1.6-2.6[facility] Comment on above:Performed By: #### CBC, PT, PTT, BMP #### [facility] [address] [place] [address] [phone] Recoil Spring Winder: Good Melendez MD #### ANICOT #### [facility] [address] [place] [address] Recoil Spring Winder: Troy Link MDMagnesium [Mass/Vol]2.0 mg/dL1.6 - 2.6 mg/dLUniversity Hospitals Portage Medical CenterNo Panel Informationon 65-11-5452UfokcEdgerton Hospital and Health Services Glucose Fingerstickon 28-95-2427Daaiwxi [Mass/Vol]199 mg/gRKiul23 - 110 mg/dLUniversity Hospitals Portage Medical CenterInterpretation and review of laboratory resultsAbnormalSelect Medical Specialty [facility] HealthGlucose [Mass/Vol]209 mg/iIAnqw65 - 110 mg/dLGalion Community Hospital HealthInterpretation and review of laboratory resultsAbnormAvita Health System [facility] HealthPOCT Glucoseon 06-66-4246Gvvwxrr [Mass/Vol]150 mg/jEJidy61 - 100 mg/dLGalion Community Hospital Health Interpretation and review of laboratory resultsAbNovant Health [facility] HealthPOTASSIUM (POC)on 22-95-5700Iyotvrhlm [Moles/Vol]3.9 mmol/L3.5 - 4.5 mmol/LMercy [facility] Phosphoruson 57-10-2692Yqqeapjxk [Mass/Vol]3.8 mg/dL2.5 - 4.5 mg/dLUniversity Hospitals Portage Medical Center Phosphorus, Inorg.on 61-80-3000Kbzmclvgjm, Inorg.3.8 mg/dLNormal2.5-4.5Grant HospitalComment on above:Performed By: #### CBC, PT, PTT, BMP #### [facility] [address] [place], [place] [id number] Recoil Spring Winder: Good Melendez MD #### ANICOT #### [address] [address] Recoil Spring Winder: TONY Cuevas-CoV-2on 99-96-5935TCCP-CoV-2 (COVID-19) RNA MUKUL+probe Ql (Unsp spec)Not detectedNormalNOTDETMMission Community Hospital Comment on above:Result Comment: Rapid NAAT: The specimen is NEGATIVE [...] management decisions. Fact sheet for Healthcare Providers: https://www.fda.gov/media/744496/download Fact sheet for Patients: https://www.fda.gov/media/938492/download Methodology: Isothermal Nucleic Acid AmplificationPerformed By: #### COVRB #### [facility] [address] [place], [place] 0451708 Recoil Spring Winder: Ligia Fowler [address]-PY-Plvbxznj<2NAdams County HospitalComment on above:Performed By: #### CBC, PT, PTT, BMP #### [facility] [address] [place] [address] [phone] Recoil Spring Winder: Good Melendez MD #### ANICOT #### [facility] [address] [place] [address] [phone] Recoil Spring Winder: Adalberto Cuevasine<2NAdams County Hospital Comment on above:Performed By: #### CBC, PT, PTT, BMP #### [facility] [address] [place] [address] [phone] Recoil Spring Winder: Good Melendez MD #### ANICOT #### [facility] [address] [address] Recoil Spring Winder: Alvaro Cuevase<2NAdams County Hospital Comment on above:Result Comment: (NOTE) Consistent with abstinence from nicotine-containing products [...] developed and its performance characteristics determined by [facility]. It has not been cleared or approved by the [place] Food and Drug Administration. This test was performed in a CLIA certified laboratory and is intended for clinical purposes. Performed By: [facility] [address] [place] [address] Basting Cleaner: Ayse I. Joe, MDPerformed By: #### CBC, PT, PTT, BMP #### [facility] [address] [place] [address] Recoil Spring Winder: Good Melendez MD #### ANICOT #### [facility] [address] [place] [address] Recoil Spring Winder: Nichole Cuevas, [facility] 84[address]-ZW-Rlhbuyth<2ng/mL [facility]cy HealthCotinine<2ng/mLMercy HealthNicotine<2ng/mLMercy HealthComment on above:(NOTE) Consistent with abstinence from nicotine-containing products for [...] developed and its performance characteristics determined by [facility]. It has not been cleared or approved by the [place] Food and Drug Administration. This test was performed in a CLIA certified laboratory and is intended for clinical purposes. Performed By: [facility] [address] [place] [address] Basting Cleaner: Ayse Diaz MD [facility] SwiftoEK 12 LeadOrdered By: Unknown Result on 01-65-2204Krguem Wlad181FMJ Mercy HealthP Xjtj41yglroxcJlvda HealthP-R Dapcukxp347 msMercy HealthQ-T Kqfxzozn484 msMercy HealthQRS Gzwdhfyt28 msMercy HealthQTc Calculation (Tabby) 424 msMercy HealthR [place]-11degreesMercy HealthT Yael25sklmzyiFluiu Health Ventricular Raro093WCAYmrlz HealthMercy SwiftoG 12 Leadon 02-85-5467Gpfpi tachycardia Otherwise normal ECG No previous ECGs availableNEW MEXICO BE[facility] STSheridan Rosales, Emma Provider - 05/09/2021 Sinus tachycardia Otherwise normal ECG No previous ECGs availableAkron Children'S HospitalPathfinder Technologies Phone: XR CHEST (2 VW)on [phone] CHEST (2 VW) EXAMINATION: TWO XRAY VIEWS [...] Signed by: Singh Calero MD 05/09/21 Final resultNoKindred Hospital LimaNo acute airspace disease identified. [facility] CONSOLIDATEDEXAMINATION: TWO XRAY VIEWS OF THE CHEST 05/08/2021 [...] effusion. No acute osseous abnormality is identified. [facility] Singh Vieyra MD - 05/09/2021 EXAMINATION: TWO XRAY VIEWS [...] identified. IMPRESSION: No acute airspace disease identified. [employer] Phone: XR CHEST (2 VW)Ordered By: Singh Calero on 05-09-2021 [employer] Work Phone: APTTon [id number] Coag (Bld) [Time]23.1 sNormal 20.5-30.5Grant HospitalComment on above:Result Comment: IV Heparin Therapy Range: 48.6-77.8Performed By: #### CBC, PT, PTT, BMP #### [facility] [address] [place] [address] Recoil Spring Winder: Good Melendez MD #### ANICOT #### [facility] [address] [place], [place] [id number] Recoil Spring Winder: Troy Link MDaPTGregorio Coag (Bld) [Time]23.1 [facility] Mills HospitalComment on above: IV Heparin Therapy Range: 48.6-77.8 Basic Metabolic Panelon 44-48-3335Pnflx gap [Moles/Vol]15 mmol/L9 - 17 mmol/L [facility] HealthCalcium [Mass/Vol]9.4 mg/dL8.6 - 10.4 mg/dLMercy HealthChloride [Moles/Vol]103 mmol/L98 - 107 mmol/LMercy HealthCO2 [Moles/Vol]19 mmol/LLow20 - 31 mmol/LMercy HealthCreatinine [Mass/Vol]1.59 mg/dLHigh0.70 - 1.20 mg/dLMercy HealthGFR Ffmecwoa87 mL/minLow>60Mercy HealthGFR Non- Zbnqocyx09 mL/minLow>60Mercy HealthGFR/1.73 sq M.predicted MDRD (S/P/Bld) [Vol rate/Area] [facility] SwiftoComment on above:Average GFR for 50-59 years old: 93 mL/min/1.73sq m Chronic Kidney Disease: <60 mL/min/1.73sq m Kidney failure: <15 mL/min/1.73sq m eGFR calculated using average adult body mass. Additional eGFR calculator available at: http://www.[employer]multiple_crcl_2012.htm Glucose [Mass/Vol]141 mg/hXUzkf74 - 99 mg/dLUniversity Hospitals Portage Medical CenterInterpretation and review of laboratory resultsAbnormalGalion Community Hospital HealthPotassium [Moles/Vol]5.3 mmol/L 3.7 - 5.3 mmol/LMercy HealthSodium [Moles/Vol]137 mmol/L135 - 144 mmol/LMercy HealthUrea nitrogen (BldV) [Mass/Vol]37 mg/dLHigh6 - 20 mg/dLAspirus Wausau HospitalBasic Metabolic Profon 05-08-2021(cont.)NormalGrant HospitalComment on above:Result Comment: Average GFR for 50-59 years old: 93 mL/min/1.73sq m Chronic Kidney Disease: <60 mL/min/1.73sq m Kidney failure: <15 mL/min/1.73sq m eGFR calculated using average adult body mass. Additional eGFR calculator available at: http://www.[employer]/multiple_crcl_2011.htmPerformed By: #### CBC, PT, PTT, BMP #### [facility] [address] [place] [address] Recoil Spring Winder: Good Melendez MD #### JIMENA #### [facility] [address] [place] [address] Recoil Spring Winder: Kylee Cuevas gap [Moles/Vol]15 mmol/LNormal9-17Grant HospitalComment on above:Performed By: #### CBC, PT, PTT, BMP #### [facility] [address] [place] [address] Recoil Spring Winder: Good Melendez MD #### YASSINET #### [facility] [address] [place] [address] Recoil [place] Winder: Troy Link MDCalcium [Mass/Vol]9.4 mg/dLNormal8.6-10.4Grant HospitalComment on above:Performed By: #### CBC, PT, PTT, BMP #### [facility] [address] [place] [address] Rec[place] Winder: Good Melendez MD #### ANICOT #### [facility] [address] [place] [address] Recoil [place] Winder: DEVANTE Cuevashloride [Moles/Vol]103 mmol/ORyalyi70-019VwsezGrant HospitalComment on above:Performed By: #### CBC, PT, PTT, BMP #### [facility] [address] [place] [address] Rec[employer] [place] Winder: Good Melendez MD #### ANICOT #### [address] [address] Rec[place] Winder: Troy Link MDCO2 [Moles/Vol]19 mmol/JDik69-59KwazyGrant HospitalComment on above:Performed By: #### CBC, PT, PTT, BMP #### [address] [address] Recoil [place] Winder: Good Melendez MD #### ANICOT #### [address] [address] Recoil [place] Winder: DEVANTE Cuevasreatinine [Mass/Vol]1.59 mg/dLHigh0.70-1.20Grant HospitalComment on above:Performed By: #### CBC, PT, PTT, BMP #### [facility] [address] [place] [address] Rec[place] Winder: Good Melendez MD #### ANICOT #### [facility] [address] [place] [address] Recoil [place] Winder: Troy Link MDGFR, Amer55 mL/minLow>60Grant HospitalComment on above:Performed By: #### CBC, PT, PTT, BMP #### [address] [address] Recoil [place] Winder: Good Melendez MD #### ANICOT #### [facility] [address] [place] [address] Recoil [place] Winder: Troy Link MDGFR,non Amer45 mL/minLow>60MerRedwood Memorial HospitalComment on above:Performed By: #### CBC, PT, PTT, BMP #### [facility] [address] [place] [address] Recoil [place] Winder: Good Melendez MD #### ANICOT #### [facility] [address] [place] [address] Recoil [place] Winder: Troy Link MDGlucose [Mass/Vol]141 mg/qICdxx96-27KylqfMission Community HospitalComment on above:Performed By: #### CBC, PT, PTT, BMP #### [facility] [address] [place] [address] Rec[employer] [place] Winder: Good Melendez MD #### ANICOT #### [facility] [address] [place] [address] Recoil Spring Winder: HEBER Cuevasotassium [Moles/Vol]5.3 mmol/LNormal3.7-5.3[facility]terman Developmental CenterComment on above:Performed By: #### CBC, PT, PTT, BMP #### [facility] [address] [place] [address] Rec[employer] [place] Winder: Good Melendez MD #### ANICOT #### [facility] [address] [place] [address] Recoil Spring Winder: JESSICA Cuevasodium [Moles/Vol]137 mmol/YDnhfgs033-207BmrqzRedwood Memorial HospitalComment on above:Performed By: #### CBC, PT, PTT, BMP #### [facility] [address] [place] [address] Recoil [place] Winder: Good Melendez MD #### ANICOT #### [facility] [address] [place] [address] Recoil [place] Winder: Troy Link MDUrea nitrogen [Mass/Vol]37 mg/dLHigh6-20Grant HospitalComment on above:Performed By: #### CBC, PT, PTT, BMP #### [address] [address] Recoil [place] Winder: Good Melendez MD #### ANICOT #### [facility] [address] [place] [id number] Recoil [place] Winder: DEVANTE Cuevasflo 19-16-5154Xcynmixgdem distribution width (RBC) [Ratio]14.1 %Mydtum60.8-14.4Grant HospitalComment on above:Performed By: #### CBC, PT, PTT, BMP #### [place] [address] Recoil Spring Winder: Good Melendez MD #### ANICOT #### [facility] [address] [place] [address] Recoil [place] Winder: Troy Link MDHematocrit (Bld) [Volume fraction]43.6 %Normal 40.7-50.3Mer[facility] Lanterman Developmental CenterComment on above:Performed By: #### CBC, PT, PTT, BMP #### [address] [address] Recoil [place] Winder: Good Melendez MD #### ANICOT #### [facility] [address] [place] [address] Recoil [place] Winder: Troy Link MDHemoglobin (Bld) [Mass/Vol]13.5 g/dLNormal 13.0-17.0Grant HospitalComment on above:Performed By: #### CBC, PT, PTT, BMP #### [address] [address] Recoil [place] Winder: Good Melendez MD #### ANICOT #### [facility] [address] [place], [place] [id number] Recoil Spring Winder: SEVERINO CuevasCH (RBC) [Entitic mass]29.4 sxYgdhfd76.2-33.5 Grant HospitalComment on above:Performed By: #### CBC, PT, PTT, BMP #### [address] [address] Recoil [place] Winder: Good Melendez MD #### ANICOT #### [address] [id number] Recoil Spring Winder: FUENTES CuevasC (RBC) [Mass/Vol]31.0 g/uPRanrse65.4-34.8 Grant HospitalComment on above:Performed By: #### CBC, PT, PTT, BMP #### [address] [address] Recoil [place] Winder: Good Melendez MD #### ANICOT #### [address] [id number] Recoil Spring Winder: SEVERINO CuevasCV (RBC) [Entitic vol]95.0 lPBdcrna30.6-102.9 Grant HospitalComment on above:Performed By: #### CBC, PT, PTT, BMP #### [address] [address] Recoil [place] Winder: Good Melendez MD #### ANICOT #### [address] [address] Recoil [place] Winder: Troy Link MDNRBC Automated0.0 per 100 WBCNormal0.0Grant HospitalComment on above:Performed By: #### CBC, PT, PTT, BMP #### [facility] [place] [address] Recoil Spring Winder: Good Melendez MD #### ANICOT #### [facility] [address] [place] [address] Recoil Spring Winder: Ila Cuevas mean volume (Bld) [Entitic vol]8.7 fL Normal8.1-13.5Grant HospitalComment on above:Performed By: #### CBC, PT, PTT, BMP #### [facility] [address] [place] [address] Recoil [place] Winder: Good Melendez MD #### ANICOT #### [facility] [address] [place] [address] Recoil Spring Winder: Mara Cuevas (Bld) [#/Vol]279 10*3/cKHuxsyb896-463 Grant HospitalComment on above:Performed By: #### CBC, PT, PTT, BMP #### [facility] [address] [place] [address] Recoil [place] Winder: Good Melendez MD #### ANICOT #### [facility] [address] [place] [address] Recoil Spring Winder: TOMMIE CuevasBC (Bld) [#/Vol]4.59 10*6/uLNormal4.21-5.77Grant HospitalComment on above:Performed By: #### CBC, PT, PTT, BMP #### [facility] [address] [place] [address] Recoil [place] Winder: Good Melendez MD #### ANICOT #### [facility] [address] [place] [address] Recoil Spring Winder: Troy Link MDWBC (Bld) [#/Vol]8.9 10*3/uLNormal3.5-11.3[facility]terman Developmental CenterComment on above:Performed By: #### CBC, PT, PTT, BMP #### [facility] [address] [place] [address] Recoil Spring Winder: Good Melendez MD #### ANAPARNAT #### [facility] [address] [place] [address] Recoil Spring Winder: Troy Link MDHematocrit (Bld) [Volume fraction]43.6 %40.7 - 50.3 %[facility] Medical CenterHemoglobin.gastrointestinal spec 1 Ql (Stl)13.5 g/dL13.0 - 17.0 g/dLMercy Health West HospitalH (RBC) [Entitic mass]29.4 pg25.2 - 33.5 pgUniversity Hospitals Portage Medical Center MCHC (RBC) [Mass/Vol]31.0 g/dL28.4 - 34.8 g/dLMercy Health West HospitalV (RBC) [Entitic vol]95.0 fL82.6 - 102.9 fLUniversity Hospitals Portage Medical CenterNRBC Automated0.00.0 per 100 WBCUniversity Hospitals Portage Medical CenterPlatelet distribution width (Bld) [Ratio]14.1 %11.8 - 14.4 %[facility] Platelet mean volume (Bld) [Entitic vol]8.7 fL8.1 - 13.5 fLUniversity Hospitals Portage Medical CenterPlatelets (Bld) [#/Vol]279 10*3/Wayne HospitalRBC (Bld) [#/Vol]4.59 10*6/uL4.21 - 5.77 m/Wayne HospitalWBC (Bld) [#/Vol]8.9 10*3/[facility] HealthNo Panel Informationon 79-73-8434Ybyzs HealthPTon 11-04-0157EPG Coag (PPP) [Relative time]1.1 {INR}NormalGrant HospitalComment on above:Result Comment: Therapeutic Range: Moderate Anticoagulant Intensity: INR = 2.0-3.0 High Anticoagulant Intensity: INR = 2.5-3.5Performed By: #### CBC, PT, PTT, BMP #### [facility] [address] [place] [address] Recoil Spring Winder: Good Melendez MD #### JIMENA #### [facility] [address] [place] [address] Recoil Spring Winder: ZONIA Cuevas Coag (PPP) [Time]11.2 sNormal9.1-12.3Mer[facility] Lanterman Developmental CenterComment on above:Performed By: #### CBC, PT, PTT, BMP #### [facility] [place] [address] Recoil Spring Winder: Good Melendez MD #### JIMENA #### [facility] [address] [place] [address] Recoil Spring Winder: Alan Cuevasime-INRon 60-14-1268IZQ Coag (Bld) [Relative time]1.1 {INR}UPR-OnlineComment on above: Therapeutic Range: Moderate Anticoagulant Intensity: INR = 2.0-3.0 High Anticoagulant Intensity: INR = 2.5-3.5 PT Coag (PPP) [Time]11.2 sMercy HealthXR CHEST (2 VW)on 45-96-7319Akxbdhkoc Study observation (narrative)UPR-Online Work Phone: ct LUMBAR SPINE W CONTRASTon 26-23-2546JK LUMBAR SPINE W CONTRASTUnMercy Health St[facility] Department of Radiology [address] [place] [phone] Patient Name: SUKHDEEP SIMENTAL : 1965 Sex: M Age: Race: White Pt. Location: Patient Status: D Ordered Date: 02/13/2021 9:35:00 AM Completed Date: 02/28/2021 02:00 PM Requesting Provider: JASON MILLER Attending Provider: JASON MILLER Report Copy To: Signs & Symptoms: Z98.1 Arthrodesis status I10 History: Crissy Comments: Exam: CT LUMBAR SPINE W CONTRAST CT LUMBAR SPINE W CONTRAST 02/28/2021 2:00 [...] above Electronically signed: Parvin Mg. Transcribed by: [email or web address], User Resident: Electronically Signed by: PARVIN MG @ 03/01/2021 02:21 PMNormalThe [facility]itan Medical CenterLUMBAR MYELOGRAMon 65-67-8610IPHKYB MYELOGRAM [facility] Department of Radiology [address] [place] [address] Patient Name: SUKHDEEP SIMENTAL : 1965 Sex: M Age: Race: White Pt. Location: Patient Status: O Ordered Date: 02/13/2021 9:35:00 AM Completed Date: 02/28/2021 02:06 PM Requesting Provider: JASON MILLER Attending Provider: JASON MILLER Report Copy To: Signs & Symptoms: Z98.1 Arthrodesis status I10 History: [phone] Is patient on thinners? 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 Consent was obtained. Timeout: [place] protocol timeout verification performed. PROCEDURE: Estimated blood [...] report. Electronically signed: Parvin Mg. Transcribed by: [email or web address], User Resident: OCHOA HONG Electronically Signed by: LOUIEAFTAB HARITHA @ 02/28/2021 03:13 PM I personally read this/these film(s) with this residentOhio State University Wexner Medical CenterLUMBAR SPINE 4 OR 5 [facility] 62-24-6708GKFVWA SPINE 4 OR 5 S [facility] Department of Radiology [address] [place] [phone] Patient Name: SUKHDEEP SIMENTAL : 1965 Sex: M Age: Race: White Pt. Location: Patient Status: D Ordered Date: 02/01/2021 1:05:00 PM Completed Date: 02/01/2021 01:12 PM Requesting Provider: JASON MILLER Attending Provider: JASON MILLER Report Copy To: Signs & Symptoms: M54.16 Radiculopathy, lumbar region I10 History: [place] Comments: Views (X-RAY, LUMBAR SPINE): AP, Lateral, L5-S1 Spot, Flexion, Extension Exam: LUMBAR SPINE 4 OR 5 S LUMBAR SPINE 4 OR 5 S CLINICAL INFORMATION: pt states having lower back [...] Osteopenia. Electronically signed: Ahsan Farmer. Transcribed by: [email or web address], User Resident: Electronically Signed by: AHSAN FARMER @ 02/02/2021 10:14 AMNormalThe [facility]ar[facility] Medical CenterComment on above:Order Comment: Views (X-RAY, LUMBAR SPINE): AP, Lateral, L5-S1 Spot, Flexion, ExtensionC REACTIVE PROTEINon 49-66-4349ICV [Mass/Vol]9.6 mg/LHigh0.0-7.0The [facility] Medical CenterComment on above:Performed By: #### [id number] #### [facility] [address] [facility] [address], USACBC W/DIFFon 89-03-0276LGA IMM GRANS0.1 10*3/uLNormal 0.0-0.2The [facility] Medical CenterComment on above:Performed By: #### 58362, 77144 #### [facility] [address] [place] [address], USAABS NEUTROPHILS6.1 10*3/uLNormal1.6-7.6The [facility]aritan Medical CenterComment on above:Performed By: #### 36069, 97649 #### [facility] [address] [place] [address], USABasophils (Bld) [#/Vol]0.1 10*3/uLNormal0.0-0.2The [facility] Medical CenterComment on above:Performed By: #### 74919, 54932 #### [facility] [address] [place] [address], USABasophils/100 WBC (Bld)0.8 %Normal0.0-1.0The [facility] Medical CenterComment on above:Performed By: #### 68222, 77303 #### [facility] [address] [place] [address], USAEosinophils (Bld) [#/Vol]0.4 10*3/uLNormal0.0-0.5The [facility] Medical CenterComment on above:Performed By: #### 47278, 99595 #### [facility] [address] [place] [address], USAEosinophils/100 WBC (Bld)4.1 %Normal0.0-6.0The [facility] Medical CenterComment on above:Performed By: #### 75787, 20524 #### [facility] [address] [place] [address], USAErythrocyte distribution width (RBC) [Ratio]12.6 %Normal 11.5-15.0The [facility] Medical CenterComment on above:Performed By: #### 94242, 27703 #### [facility] [address] [facility] [place] [address], USAHematocrit (Bld) [Volume fraction]40.2 %Grflqh36.0-50.0The [facility] Medical CenterComment on above:Performed By: #### 65975, 27753 #### [facility] [address] [facility] [place] [address], USAHemoglobin (Bld) [Mass/Vol]12.6 g/dLLow13.0-17.0The [facility] Medical CenterComment on above:Performed By: #### 93520, 78237 #### [facility] [address] [facility] [place] [address], USAIMMATURE GRANS0.7 %Normal0.0-1.0The [facility] Medical CenterComment on above:Performed By: #### 61351, 16178 #### [facility] [address] [facility] [place] [address], USALymphocytes (Bld) [#/Vol]2.0 10*3/uLNormal1.2-4.0The [facility] Medical CenterComment on above:Performed By: #### 95725, 51505 #### [facility] [address] [place] [address], [facility]IAL HOSPITALLymphocytes/100 WBC (Bld)20.6 %Obwpfm77.0-45.0The [facility] Medical CenterComment on above:Performed By: #### 24787, 08652 #### [facility] [address] [facility] [address], [facility] (RBC) [Entitic mass]30.0 saLzhmmb21.0-33.0The [facility] Medical CenterComment on above:Performed By: #### 91752, 64677 #### [facility] [address] [facility] [place] [id number], DR[facility] D[facility]ORIAL HOSPITALMCHC (RBC) [Mass/Vol]31.3 g/dLLow32.0-35.0The [facility] Medical CenterComment on above:Performed By: #### 87400, 12445 #### [facility] [address] [facility] [facility] [place] [address], DR[facility] HOSPITALMCV (RBC) [Entitic vol]95.7 rLLssmdi95.0-98.0The [facility] Medical CenterComment on above:Performed By: #### 01532, 03133 #### [facility] [address] [place] [address], USAMonocytes (Bld) [#/Vol]1.2 10*3/uLHigh0.1-1.0The [facility] Medical CenterComment on above:Performed By: #### 30927, 96444 #### [facility] [address] [place] [address], XSLOLMOM75.9 %Normal5.0-12.0The [facility] Medical CenterComment on above:Performed By: #### 26847, 42226 #### [facility] [address] [place] [address], USANeutrophils/100 WBC (Bld)61.9 %Mujodl93.0-72.0The [facility] Medical CenterComment on above:Performed By: #### 83979, 72365 #### [facility] [address] [place] [address], USANucleated RBC/100 WBC (Bld) [Ratio]0 %Normal0-0The [facility] Medical CenterComment on above:Performed By: #### 45802, 38749 #### [facility] [address] [place] [address], USAPLAT VJA314 10*3/uTOmdfvt305-446Tlf [facility] Medical CenterComment on above:Performed By: #### 91758, 60644 #### [facility] [address] [facility] [place] [address], USARBC (Bld) [#/Vol]4.20 10*6/uLNormal4.20-5.70The [facility] Medical CenterComment on above:Performed By: #### 82972, 61354 #### [facility] [address] [place] [address], USAWBC (Bld) [#/Vol]9.86 10*3/uLNormal4.00-10.60The [facility] Medical CenterComment on above:Performed By: #### 79086, 07377 #### [facility] [address] [place] [address], USAKNEE RIGHT 4 [facility] 68-08-1099MVNB RIGHT 4 [facility] GARDENAniTriHealth Good [facility] Department of Radiology [address] [place] [phone] Patient Name: SUKHDEEP SIMENTAL : 1965 Sex: M Age: Race: White Pt. Location: OUTP Patient Status: D Ordered Date: 12/15/2020 12:25:00 PM Completed Date: 12/15/2020 12:35 PM Requesting Provider: ROBBI PEPE Attending Provider: ROBBI PEPE Report Copy To: Signs & Symptoms: L03.115 cellulitis of rt lower limb History: Comments: evaluate Exam: KNEE RIGHT 4 VWS KNEE RIGHT 4 VWS 12/15/2020 12:35 PM [...] effusion. Approved by:Eun Littlejohnn1 8:20 AM. I, Alesha Jimenes,have reviewed the image(s) and agree with the findings in this report. Electronically signed: Alesha Jimenes. Transcribed by: [email or web address], User Resident: ALESHA CORDERO Electronically Signed by: ALESHA JIMENES @ 12/16/2020 09:18 AM I personally read this/these film(s) with this [facility] Medical CenterComment on above:Order Comment: evaluateSEDIMENTATION RATE on 99-15-4010TDQ RATE77 mm/hrHigh0-[address] [place] [address] Comment on above:Performed By: #### 33963, 58542 #### [facility] [address] [place] [address], USACOVID-19 Positive/Negativeon 64-17-3987NSEAX-19 Positive/NegativeNegativeNegativeWvumedicine Harrison Community Hospital CtrComment on above: Reference: NegativeTesting for SARS-CoV-2 by RT-PCRThis test was developed and its performance characteristics determined by [employer] ([employer]) and validated at the [facility]. This test has not been FDA cleared or approved. This test has been authorized by FDA under an Emergency Use Authorization (EUA). This test has been validated in accordance with the [facility]'s Guidance Document (Policy for Diagnostics Testing in Laboratories Certified to Perform High Complexity Testing under CLIA prior to Emergency Use Authorization for Coronavirus Disease-2019 duringthe Public Health Emergency) issued on May 28, 2019. This test is only authorized for the durationof time the declaration that circumstances exist justifying the authorization of the emergency use of in vitro diagnostic tests for detection of SARS-CoV-2 virus and/or diagnosis of COVID-19 infection under section 564(b)(1) of the Act, 21 U.S.C. 360bbb-3(b)(1), unless the authorization is terminated or revoked sooner. Estimated glomerular filtration rate (GFR) non- Americanon 05-05-2020 GFR/1.73 sq M predicted among non-blacks MDRD (S/P/Bld) [Vol rate/Area] mL/min/{1.73_m2}[facility] CtrOtheron 61-52-4991SGD/1.73 sq M.predicted MDRD (S/P/Bld) [Vol rate/Area]mL/min/{1.73_m2}[facility] CtrComment on above:GFR estimated reference range: According to KDOQI guidelines, <60 ml/min/1.73m2 is sufficient todiagnose a patient with chronic kidney disease.Pharmacy Creatinine Clearance (ChemN/[facility] CtrCoronavirus 2019 PCR InterpN/[facility] CtrSerum or plasma calcium measurement (mass/volume)on 19-76-5692Pfwgqnz [Mass/Vol]8.6 mg/dL 8.2-10.2FGrand Lake Joint Township District Memorial Hospital CtrSerum or plasma chloride measurement (moles/volume)on 81-90-7968Daiouzqk [Moles/Vol]104 mmol/K09-942GwrlzmdbhWvumedicine Harrison Community Hospital CtrSerum or plasma creatinine measurement with calculation of estimated glomerular filtron 27-15-8886Yiqlqoiayt [Mass/Vol]1.14 mg/dL0.64-1.27 [facility] CtrSerum or plasma glucose measurement (mass/volume) on 32-72-2490Ntxgfrd [Mass/Vol]178 mg/pH48-100CtdwdhmftWvumedicine Harrison Community Hospital Ctr Comment on above:ADA recommended reference rangeRandom Glucose Reference Range is dependent on time and content of last meal. Glucose of more than 200 mg/dL in a nonstressed, ambulatory subject supports the diagnosisof Diabetes Mellitus. Serum or plasma potassium measurement (moles/volume)on 45-28-4624Hjxcbvzaf [Moles/Vol]4.0 mmol/L3.5-5.1FGrand Lake Joint Township District Memorial Hospital CtrSerum or plasma sodium measurement (moles/volume)on 06-03-2251Jmiixf [Moles/Vol]141 mmol/I372-705 [facility] CtrSerum or plasma total carbon dioxide measurement (moles/volume)on 41-49-3896ZC8 [Moles/Vol]27.4 mmol/L22.0-30.0[facility] CtrSerum or plasma urea nitrogen measurement (mass/volume)on 05-05-2020 Urea nitrogen [Mass/Vol]18 mg/dL9-23[facility] Ctr.eGFRon 48-76-9617eVTV AA>60Normal>=60[facility] Berger HospitalComment on above: Result Comment: Result = 0-14.9 mL/min/1.73 m2 Kidney failure or Dialysis Result = 15-29 mL/min/1.73 m2 Severe decrease in GFR Result = 30-59 mL/min/1.73 m2 Moderate decrease in GFR Result >= 60 mL/min/1.73 m2 Normal or increased GFRPerformed By: #### EGFR #### [place] [address] [place], [place] [address]aPED Non-AA>60Normal>=60[facility] Berger HospitalComment on above:Result Comment: Result = 0-14.9 mL/min/1.73 m2 Kidney failure or Dialysis Result = 15-29 mL/min/1.73 m2 Severe decrease in GFR Result = 30-59 mL/min/1.73 m2 Moderate decrease in GFR Result >= 60 mL/min/1.73 m2 Normal or increased GFR Chronic kidney disease is defined as either kidney damage or GFR < 60 mL/min/1.73 m2 for >= 3months. Kidney damage is defined as pathologic abnormalities or markers of damage including abnormalities in blood or urine tests or imaging studies. This GFR is NOT used for medication dosing. Performed By: #### EGFR #### [address] [address]Uycwv Metabolic Profileon 46-70-2696Nncji gap [Moles/Vol]15 mmol/LNormal7-17Ohio[facility] Berger HospitalComment on above:Performed By: #### [id number] #### [address] [address]Qozzngg [Mass/Vol]9.8 mg/dLNormal8.5-10.3BUniversity Hospitals Conneaut Medical CenterComment on above:Performed By: #### [id number] #### [address] [address]Qtqjsvdr [Moles/Vol]103 mmol/BNrpfis98-099PahurwnqfOhiohealth Berger HospitalComment on above:Performed By: #### CD:[id number] #### [address] [address]OI5 [Moles/Vol]27 mmol/GSrkkwe80-43TeronigmyOhiohealth Berger HospitalComment on above:Performed By: #### [id number] #### [address] [address]Hqqkqaqnji [Mass/Vol]0.98 mg/dLNormal0.61-1.24Ohiohealth Berger HospitalComment on above:Performed By: #### [id number] #### [address] [address]Eyuxqwj [Mass/Vol]198 mg/nVTcax61-28UwzneossxOhiohealth Berger HospitalComment on above:Performed By: #### CD:[id number] #### [address] [address]Guttezlfj [Moles/Vol]4.0 mmol/LNormal3.4-4.8BUniversity Hospitals Conneaut Medical CenterComment on above:Performed By: #### [id number] #### [address] [address]Gynlbg [Moles/Vol]141 mmol/BBonqjr690-472NcwizckpyOhiohealth Berger HospitalComment on above:Performed By: #### CD:[id number] #### [address] [address]Tzyp nitrogen [Mass/Vol]18 mg/dLNormal8-26Ohio[facility] Berger HospitalComment on above:Performed By: #### [id number] #### [address] [address]Hznu nitrogen/Creatinine [Mass ratio]18.4 mg/gfKxrieu47.0-20.0 [facility] HospitalComment on above:Performed By: #### CD:[id number] #### [address] [address]ZLGtb 92-75-8433Ydejtbiompw distribution width (RBC) [Ratio] 13.0 %Hoeaxe79.6-14.8BUniversity Hospitals Conneaut Medical CenterComment on above:Performed By: #### CBCI #### [address] [address]Psssisjfwz (Bld) [Volume fraction]46.2 %Bpsuir89.0-53.0 [facility] HospitalComment on above:Performed By: #### CBCI #### [address] [address]Ooqkndlrmb (Bld) [Mass/Vol]16.2 g/eSFnedou17.5-17.5BUniversity Hospitals Conneaut Medical CenterComment on above:Performed By: #### CBCI #### [address] [address]EJK (RBC) [Entitic mass]32.1 waAeadfr72.0-35.0Ohiohealth Berger HospitalComment on above:Performed By: #### CBCI #### [address] [address]PFKK (RBC) [Mass/Vol]35.0 %Mrsiqt64.0-37.0[facility] Anderson SystemComment on above:Performed By: #### CBCI #### [address] [address]CTB (RBC) [Entitic vol]91.6 uHZjmlsi00.0-100.0Ohiohealth Berger HospitalComment on above:Performed By: #### CBCI #### [address] [address]Bgeqhusy mean volume (Bld) [Entitic vol]7.5 fLNormal6.7-10.6 [facility] Berger HospitalComment on above:Performed By: #### CBCI #### [address] [address]Rdbuwlmvo (Bld) [#/Vol]263 x10*3/dvHLhkfnq647-951Gfjebsnyi Valley Health SystemComment on above:Performed By: #### CBCI #### [address] [address]GIN (Bld) [#/Vol]5.04 x10*6/mcLNormal4.30-5.80Ohiohealth Berger HospitalComment on above:Performed By: #### CBCI #### [address] [address]DCK (Bld) [#/Vol]9.7 x10*3/mcLNormal4.5-11.0Ohiohealth Berger HospitalComment on above:Performed By: #### CBCI #### [address] [address]Ekj A1con 85-28-7191RyH7l (Bld) [Mass fraction]134 mg/dLHigh 68-114Ohiohealth Berger HospitalComment on above:Result Comment: Mathematical Calc approx. The mean gluc equivalency of I7fNqopnajrg By: #### HBA1C #### [facility] [address] [place], [place] [address]BoI0r (Bld) [Mass fraction]6.3 % W1pDbbb8.0-5.6BUniversity Hospitals Conneaut Medical CenterComment on above:Result Comment: Reference Range: 4.0 - 5.6 % Normal 5.7 - 6.4 % Pre-Diabetes > 6.5 % DiabetesPerformed By: #### HBA1C #### [address] [address]IBAV, PCRon 68-94-8900SXW Coag (Bld) [Relative time]Negative NormalOhiohealth Berger HospitalComment on above:Result Comment: The [employer] Xpert MRSA Assay is a qualitative in vitro diagnostic test designed forrapid detection of Methicillin-Resistant Staphylococcus aureus (MRSA) from nasal swabs in patients at risk for nasal colonization.The test utilizes automated real-time polymerase chain reaction (PCR)to detect MRSA DNA,because the detection of MRSA [...] laboratory and clinical data available to the clinician.Performed By: #### MRSAPC #### [facility] [address] [place] [address]DBlt 24-64-6040LBE Coag (PPP) [Relative time]1.0 {INR}Normal <=3.5BUniversity Hospitals Conneaut Medical CenterComment on above:Result Comment: INR has no normal range. INR Therapeutic range is: 2.0-3.0 (AF, CVA, TIAs, DVT prophylaxis, acute DVT) 2.5-3.5 ([facility] heart valves, recurrent thrombosis/emboli)Performed By: #### PTINR #### [address] [address]SX Coag (PPP) [Time]11.9 sNormal8.9-11.9BUniversity Hospitals Conneaut Medical CenterComment on above:Performed By: #### PTINR #### [address] [address]WGVpn 06-60-6450pYDE Coag (Bld) [Time]23.0 jGgvimc52.2-27.8 [facility] Berger HospitalComment on above:Performed By: #### PTT #### [address] [address]KK Chest 2 Viewson 21-70-2003ER Chest 2 ViewsHistory: Preop for lumbar surgery There is no [...] Is Signed, Electronically Signed in Other Vendor System)Normal Ohio[facility] Berger HospitalXR LUMBAR SPINE (2-3 VIEWS)on 31-86-7048DC LUMBAR SPINE (2-3 VIEWS)EXAMINATION: 2 XRAY VIEWS OF THE LUMBAR SPINE [...] Signed by: Juwan Kumar MD 04/16/19 Final resultNoKindred Hospital DaytonLimited range of motion without evidence of instability. Multilevel disc degeneration.[employer], HEMAL EXAMINATION: 2 XRAY VIEWS OF THE LUMBAR SPINE 04/16/2019 10:21 am COMPARISON: None. HISTORY: ORDERING SYSTEM PROVIDED HISTORY: Injury Back pain after fall. FINDINGS: Lateral flexion extension views ofthe lumbar spine. With extension, no instability. Range of motion is reduced. With flexion, no substantial interval movement. No pathologic malalignment. Diffuse disc degeneration greatest in the lower lumbar spine. Spinous processes appear intact.[employer], HEMALEdfrances, Mhgetachew Incoming Radiant Results From [employer] - 04/16/2019 11:16 AM EST EXAMINATION: 2 [...] without evidence of instability. Multilevel disc degeneration. [employer], HEMALCT LUMBAR SPINE WO CONTRASTon 74-37-1949AA LUMBAR SPINE WO CONTRASTEXAMINATION: CT OF THE LUMBAR SPINE WITHOUT CONTRAST [...] DEGENERATIVE CHANGES: Moderate-severe multilevel degenerative changes. SOFT TISSUES/RETROPERITONEUM: No acute paraspinal abnormality. IMPRESSION: Lumbar spine degenerative changes without acute findings. Interpreted by: Ahsan Guidry MD Signed by: Ahsan Guidry MD 04/11/19 Final resultNoKindred Hospital DaytonXR PELVIS (1-2 VIEWS)on 11-87-0092WW PELVIS (1-2 VIEWS)EXAMINATION: ONE XRAY VIEW OF THE PELVIS 04/11/2019 [...] Signed by: Ahsan Guidry MD 04/11/19 Final resultNoKindred Hospital DaytonNo acute findings.[employer] Phone: eXAMINATION: ONE XRAY VIEW OF THE PELVIS 04/11/2019 1:24 pm COMPARISON: None. HISTORY: ORDERING SYSTEM PROVIDED HISTORY: fall right buttock pain TECHNOLOGIST PROVIDED HISTORY: fall right buttock pain Reason for Exam: fall buttocks pain Acuity: Acute Type of Exam: Initial FINDINGS: No acute fracture.No widening of the sacroiliac joints. Degenerative changes within the lower lumbar spine. Mild bilateral hip osteoarthritis.[employer] Phone: evikki, Rust Incoming Radiant Results From [employer] - 04/11/2019 2:02 PM EST EXAMINATION: ONE [...] bilateral hip osteoarthritis. IMPRESSION: No acute findings. [employer] Phone: Vital Signs Date TimeVital SignValuePerforming NlzergeveYkclsijo53-03-1423 11:22-0500Body mass index (BMI) [Ratio]38.99 kg/z9Hprdxwxlalo NOVAK Work Phone: [employer]12-19-2024 11:22-0500Body gyhrpn362.75 kgMatthew Nienberg PA Work Phone: [facility] HospitalLili B Enterprises12-19-2024 11:22-0500Diastolic blood mm[Hg]Ahsan Bentonenberg PA Work Phone: [facility] HospitalLili [facility]12-19-2024 11:22-0500Heart rate 92 /minMatthew Nienberg PA Work Phone: [facility] HospitalL[facility]12-19-2024 11:22-0500 Respiratory rate18 /minMatthew Nienberg PA Work Phone: [facility] HospitalL[facility]12-19-2024 11:22-0500Systolic blood ytuaurke351 mm[Hg]Ahsan Bentonenberg PA Work Phone: [facility] HospitalL[facility]10-10-2024 10:05-0400Body xekdnx322.3 cmMatthew Nienberg PA Work Phone: [facility] HospitalL[facility]10-10-2024 10:05-0400Body mass index (BMI) [Ratio]39.28 kg/c2Yrbckpi Nienberg PA Work Phone: [facility] HospitalL[facility]10-10-2024 10:05-0400Body cnxvej154.66 kgMatthew Nienberg PA Work Phone: [facility] HospitalL[facility]10-10-2024 10:05-0400Diastolic blood jsyniook41 mm[Hg]Ahsan Nienberg PA Work Phone: [facility] HospitalL[facility]10-10-2024 10:05-0400Heart rate 91 /minMatthew Nienberg PA Work Phone: [facility] HospitalL[facility]10-10-2024 10:05-0400 Respiratory rate16 /minMatthew Nienberg PA Work Phone: [facility] HospitalL[facility]10-10-2024 10:05-5811BfV4% (BldA) [Mass fraction]95 %Ahsan Nienberg PA Work Phone: [facility]10-10-2024 10:05-0400Systolic blood gfoceplw814 mm[Hg]Ahsan NOVAK Work Phone: [facility]09-12-2024 11:090400Body pfosgn545.26 [facility]09-12-2024 11:0400Body mass index (BMI) [Ratio]39 kg/a6BzenwonozMckitrick Hospital09-12-2024 11:040Body mbgxfyrgduq74.4 [degF][facility]09-12-2024 11:040Body vcelgs472.86 kgMckitrick Hospital09-12-2024 11:0400Diastolic blood mazhmbci95 mm[Hg][facility] 11-07-2023 11:090400Heart rate88 /[facility] 11-07-2023 11:0400Respiratory rate18 /[facility] 11-07-2023 11:090072JlK5% (BldA) [Mass fraction]98 %[facility]09-12-2024 11:09-0400Systolic blood mm[Hg][facility]06-20-2024 11:27-0400Diastolic blood fergkgwx40 mm[Hg]Ahsan NOVAK Work Phone: [facility]06-20-2024 11:27-0400Heart rate 110 /minMatthew Sondra NOVAK Work Phone: [facility]06-20-2024 11:27-0400 Respiratory rate20 /minMatthew Sondra NOVAK Work Phone: [facility]06-20-2024 11:27-0400Systolic blood bqebybnd942 mm[Hg]Ahsan NOVAK Work Phone: [facility]12-21-2023 11:120500Body xcjxom045.3 cmMalalo NOVAK Work Phone: [facility]12-21-2023 11:12-0500Body mass index (BMI) [Ratio]39.43 kg/h4Wnypdrvjarrett Flynn PA Work Phone: [facility]12-21-2023 11:12-0500Body .11 kgMattraulw Sondra PA Work Phone: [facility]12-21-2023 11:12-0500Diastolic blood mm[Hg]Ahsan Flynn PA Work Phone: [facility]12-21-2023 11:12-0500Heart rate 89 /minMatthew Nienberg PA Work Phone: [facility]12-21-2023 11:12-0500 Respiratory rate18 /minMatthew Nienberg PA Work Phone: [facility]12-21-2023 11:12-2621UkN0% (BldA) [Mass fraction]98 %Ahsan Flynn PA Work Phone: [facility]12-21-2023 11:12-0500Systolic blood keflmmlf433 mm[Hg]Ahsan Flynn PA Work Phone: [facility]12-14-2023 14:37-0500Body xkjyittioed04.6 [degF]Riddhi Goss OIL WELL LOGGER.TOOL MECHANIC Work Phone: [phone] Staumh03-77-5598 14:37-0500Body .92 kgRiddhi Pedersenbel OIL WELL LOGGER.TOOL MECHANIC Work Phone: [phone] Qspzph66-23-4930 14:37-0500Diastolic blood lsxpcira77 mm[Hg]Riddhi Goss OIL WELL LOGGER.TOOL MECHANIC Work Phone: [phone] Qyvdlz89-34-5782 14:37-0500Heart rate79 /min Riddhi Goss OIL WELL LOGGER.TOOL MECHANIC Work Phone: [phone] Kgxyzu17-50-2482 14:37-6539CeZ1% (BldA) [Mass fraction]98 %Riddhiyuly Goss OIL WELL LOGGER.TOOL MECHANIC Work Phone: [phone] Hospitals TriPoint Medical CenterEwcfbk04-90-0337 14:37-0500Systolic blood mm[Hg]Riddhi Ana Paula OIL WELL LOGGER.TOOL MECHANIC Work Phone: [phone] Hospitals TriPoint Medical CenterRhzbog41-53-7997 09:16-0500Blood Pressure LocationPatrick MURILLO [facility]12-11-2023 09:16-0500Diastolic blood onshvphy16 mm[Hg]Cecelia MURILLO [facility]12-11-2023 09:16-0500Heart rate79 /minPatrick MURILLO [facility]12-11-2023 09:16-0500Respiratory rate16 /minPatrick MURILLO [facility]12-11-2023 09:16-0500Systolic blood mm[Hg]Cecelia MURILLO [facility]10-26-2023 14:26-0400Body nqyhla827.3 cmAkristin Morgan PA-C Work Phone: [phone] [facility]sand Xpnxtk10-82-1395 14:26-0400Body juspej800.11 kgSingh Morgan PA-C Work Phone: [phone] [facility]sand Mvuool53-03-7358 14:26-0400Diastolic blood bozmofvb90 mm[Hg]Singh Morgan PA-C Work Phone: [phone] [facility] hospital [facility]sand Ojxpyb71-67-2501 14:26-0400Heart rate76 /min Singh Morgan PA-C Work Phone: [phone] Smoatv15-19-0017 14:26-1439DkU2% (BldA) [Mass fraction]97 %Singh Morgan PA-C Work Phone: [place] Weyrra52-80-1868 14:26-0400Systolic blood ehwqovxp823 mm[Hg]Singh Morgan PA-C Work Phone: [place] Ehagdl79-08-7189 15:00-0400Body .26 cmAbdul Corinna Other [employer] Other 10-12-2023 15:00-0400Body mass index (BMI) [Ratio]39.9 kg/c6Uccpz Corinna Other [employer] Other 10-12-2023 15:00-0400Body ugdyhumgsjl35.1 [degF]Oumou Corinna Other [employer] Other 10-12-2023 15:00-0400Body wxajkh828.56 kgAbdul Corinna Other [employer] Other 10-12-2023 15:00-0400Diastolic blood sugiqmuq77 mm[Hg] Oumou Corinna Other [employer] Other 10-12-2023 15:00-0400Respiratory rate20 /minAbdul Corinna Other [employer] Other 10-12-2023 15:00-4887UzF3% (BldA) [Mass fraction]97 % Oumou Corinna Other [employer] Other 10-12-2023 15:00-0400Systolic blood mm[Hg] Oumou Corinna Other [employer] Other 409121-35-4593 14:17-0400Body qcrurd724.3 cmEdd Mathew MD Work Phone: [facility]2023 14:17-0400Body zhekum348.97 kgEdd Mathew MD Work Phone: [facility]2023 14:17-0400Diastolic blood ivuxydtq14 mm[Hg]Edd Mathew MD Work Phone: [facility]2023 14:17-0400Heart rate66 /min Edd Mathew MD Work Phone: [facility]2023 14:17-3170OeP5% (BldA) [Mass fraction]100 %Edd Mathew MD Work Phone: [facility]2023 14:17-0400Systolic blood qxmvqjly778 mm[Hg]Edd Mathew MD Work Phone: [facility]08-23-2023 15:41-0400Blood Pressure LocationMichael NILL [facility] Xwbgnwuu74-55-1696 15:41-0400Diastolic blood bjaiupst24 mm[Hg]Maite NILL [facility] Ngrmghfc45-01-3282 15:41-0400Heart rate 70 /minMichael NILL [facility] Wzdiepla71-78-9170 15:41-0400 Respiratory rate16 /minMichael NILL [facility] Txltcidm01-49-6938 15:41-0400Systolic blood jgeamrpw411 mm[Hg]Maite NILL [facility] Fvggfmus22-92-2642 10:20-0400Body yfpeqh925.26 cmAbdul Corinna Other [employer] Other 04-27-2023 10:20-0400Body mass index (BMI) [Ratio] 40.02 kg/y4Bjlxg Corinna Other [employer] Other 04-27-2023 10:20-0400Body lnriwfmnanl84.6 [degF]Oumou Corinna Other [employer] Other 04-27-2023 10:20-0400Body ujnyev687.93 kgAbdul Corinna Other [employer] Other 04-27-2023 10:20-0400Diastolic blood mm[Hg] Oumou Corinna Other [employer] Other 04-27-2023 10:20-0400Respiratory rate20 /minAbdul Corinna Other [employer] Other 04-27-2023 10:20-4091AbE5% (BldA) [Mass fraction]97 % Oumou Corinna Other [employer] Other 04-27-2023 10:20-0400Systolic blood nmxygved663 mm[Hg] Oumou Corinna Other [employer] Other 01-23-2023 09:48-0500Blood Pressure LocationPazelalemvarghese MURILLO [facility]01-23-2023 09:48-0500Diastolic blood qfcemzda41 mm[Hg]Cecelia MURILLO [facility]01-23-2023 09:48-0500Heart rate78 /minCecelia MURILLO [facility]01-23-2023 09:48-0500Respiratory rate16 /minCecelia MURILLO [facility]01-23-2023 09:48-0500Systolic blood wqydswel610 mm[Hg]Cecelia MURILLO [facility]11-17-2022 11:15-0500Body hnnfwrunbjx69.1 [degF]PHYSICIAN NO [facility]11-17-2022 11:15-0500Diastolic blood cszjuvyu32 mm[Hg]PHYSICIAN NO [facility]11-17-2022 11:15-0500 Heart rate79 /minPHYSICIAN [facility]11-17-2022 11:15-0500Respiratory rate18 /minPHYSICIAN [facility]11-17-2022 11:15-6101OcS0% (BldA) [Mass fraction]96 %PHYSICIAN NO [facility]11-17-2022 11:15-0500Systolic blood kizldjmo290 mm[Hg]PHYSICIAN NO [facility]10-21-2022 12:20-0400 Body dmkled238.26 Emelyn Lowry Other [employer] Other 10-21-2022 12:20-0400Body mass index (BMI) [Ratio] 41.49 kg/o4XmlbvxEstephanie Lowry Other [employer] Other 10-21-2022 12:20-0400Body eerbraaukmi04.6 [degF]Estephanie Lowry Other [employer] Other 10-21-2022 12:20-0400Body nyxtsg195.46 kgEstephanie Lowry Other [employer] Other 10-21-2022 12:20-0400Diastolic blood aukoyfoo85 mm[Hg] Estephanie Lowry Other [employer] Other 10-21-2022 12:20-0400Respiratory rate18 /minEstephanie Lowry Other [employer] Other 10-21-2022 12:20-1749ZgJ7% (BldA) [Mass fraction]97 % Estephanie Hammondmond Other [employer] Other 10-21-2022 12:20-0400Systolic blood giyxafcy813 mm[Hg] Estephanie Essence Other [employer] Other 08-31-2022 14:00-0400Body utlgaf371.26 cmAbdul Corinna Other [employer] Other 08-31-2022 14:00-0400Body mass index (BMI) [Ratio] 42.02 kg/j6Ufduz Corinna Other [employer] Other 08-31-2022 14:00-0400Body utdbpucrtuc91.8 [degF]Oumou Corinna Other [employer] Other 08-31-2022 14:00-0400Body .09 kgAbdul Corinna Other [employer] Other 08-31-2022 14:00-0400Diastolic blood iysgoihg36 mm[Hg] Oumou Corinna Other [employer] Other 08-31-2022 14:00-0400Respiratory rate20 /minAbdul Corinna Other [facility] [employer] Other 08-31-2022 14:00-9430IeL6% (BldA) [Mass fraction]98 % Oumou Corinna Other [facility] [employer] Other 08-31-2022 14:00-0400Systolic blood mm[Hg] Oumou Corinna Other [facility] [employer] Other 04-01-2022 10:45-0400Body gwyxbwykvre09.8 [degF] Octavio Mcclellan DO Work Phone: [facility] HospitalKyteDbioar51-98-9444 10:45-0400Respiratory rate18 /minOctavio Mcclellan DO Work Phone: [facility] HospitalKyteFejtnr41-41-5204 10:45-1830PmV9% (BldA) [Mass fraction]98 %Octavio Mcclellan DO Work Phone: [facility] HospitalKyteKsvexm53-37-9398 07:30-0400Heart gqpy413 /min Octavio Mcclellan DO Work Phone: [facility] HospitalKyteLlijkg12-31-5875 23:20-0400Diastolic blood mm[Hg]Octavio Mcclellan DO Work Phone: [facility] HospitalKyteDovwty67-94-6105 23:20-0400Systolic blood fqfjnegt174 mm[Hg]Octavio Mcclellan DO Work Phone: [facility] HospitalKyteTadcnw05-44-0359 10:15-0400Body nlcpam942.3 cm Octavio Mcclellan DO Work Phone: [facility] HospitalKyteBmplwf92-90-1105 10:15-0400Body mass index (BMI) [Ratio]50.65 kg/o4RosgnbtOctavio Mcclellan DO Work Phone: [facility] CenterMuelgl36-35-7653 10:15-0400Body dewlsc978.58 kg Octavio Mcclellan DO Work Phone: [facility] CenterZfwffo44-76-0766 11:04-0400Body ffrfla819.[address]03-14-2022 11:04-0400Body mass index (BMI) [Ratio]51.98 kg/m2 [address]03-14-2022 11:04-0400Body mfjcdrwpilu99.3 [degF][place] [address]-14-2022 11:04-0400Body poqlpq283.67 kgR[place] [address]-14-2022 11:04-0400Diastolic blood letecwpk76 mm[Hg][address]03-14-2022 11:04-0400Heart wivk179 /minStvz [address] [place], [place] [address]Jewlna00-98-2574 11:04-0400Respiratory rate20 /minStvMargaret Ville [address]-14-2022 11:04-8497CtM0% (BldA) [Mass fraction]95 %[address]03-14-2022 11:04-0400Systolic blood mm[Hg][address]11-13-2020 14:04-0500BMI (Body Mass Index)47.99 kg/t7AynxgSt. Elizabeth Hospital11-13-2020 14:04-0500Body Zbqzeboaeek77.69 [degF]Alexandro [facility]11-13-2020 14:04-0500Body dyhexy899.42 [facility]11-13-2020 14:04-5567Yqfmir682.3 [facility] 04-11-2019 12:42-0500BMI (Body Mass Index)44.3 kg/n2Wrlbp GrasprPineville Community HospitalPathfinder Technologies Phone: 1(940) 968-963002-15-2020 12:42-0500Body Qkmiqaepdhi26.39 [degF]Suzanne [facility] Phone: 1(510) 186-163802-15-2020 12:42-0500Body usmjco369.08 kgSuzanne Lalina Work Phone: 1(547) 311-410502-15-2020 12:42-0500BP Rnsqdroli28 mm[Hg]Suzanne Lalina Work Phone: 1(496) 152-361002-15-2020 12:42-0500BP Sjkwvxnw027 mm[Hg]Suzanne [facility]Ak[facility] HospitalKyte Work Phone: 1(115) 299-130002-15-2020 12:42-0849Ueqcgg541.3 cmSuzanne iBoxPayAkron Children'S HospitalKyte Work Phone: 1(228) 738-954002-15-2020 12:42-0500Pulse (Heart Rate)72 /minJacksonMercadoTransporte Ltd Work Phone: 1(809) 481-449102-15-2020 12:42-0500Pulse Ljmhdhvr48 %Suzanne [employer] Work Phone: 1(308) 414-329002-15-2020 12:42-0500Respiratory Rate16 /minSuzanne Lalina Work Phone: Encounters Encounter DateEncounter TypeCare ProviderFacilityStart: 12-04-2024 End: 28-04-0058Yttmnxoz Mariah Holland MD-LAB [facility] Start: 12-04-2024 End: 98-42-7303mucemirjjjYOSJOHGPO [facility] Work Phone: Start: 11-19-2024 End: 27-08-4799yzoyjbiabnHhyeyu X OrzechFacility:EU BellevueStart: 11-19-2024 End: 89-11-4123Abuzoox encounter procedureAurora X Orzech [facility] start: 11-13-2024 End: 11-81-0153hfzmuqxcsqLbyfdnk M. IrwinFacility:CD:[id number]: 11-10-2024 Non-patient / Non-visitOumou Weinstein MD-[facility] Work Phone: Start: 08-07-2024 End: 26-87-3829ntbnptbeygClmsjmm R WATERSFacility:EU tart: 08-07-2024 End: 65-50-6073Lrflehr encounter procedureCecelia MURILLO [facility] start: 06-22-2024 End: 37-60-4778qxiwdbgkwgCorvjqj R WATERSFacility:EU FoxhomeevueStart: 06-17-2024 End: 84-61-7964uhcjrixbraDAYBMP SHENDGEUniversCincinnati Children's Hospital Medical Centertart: 56-56-6774gpdarsqinyZSLDQD SHENDGEUniversity Knapp Medical Centertart: 05-18-2024 End: 32-24-5557depawjheofZWWXYJ SHENDGEUniversCincinnati Children's Hospital Medical Centertart: 04-10-2024 End: 99-48-1307Bmzkayswf encounterCity Hospital - Pain Management ClinicStart: 03-03-2024 End: 36-74-7694Kumvljfyg encounterCity Hospital - Pain Management ClinicStart: 02-13-2024 End: 43-53-2554ryrvxzilmrCGPTBMB S JACOBYCentervilletart: 02-13-2024 End: 10-92-6054Ehuwfj outpatient visit [facility] Centerlalo [place] Work Phone: [facility] - Pain Management ClinicComment on above:Spinal stenosis, lumbar region, with neurogenic claudication (Primary Dx)Start: 02-03-2024 End: 85-07-0614mlplrpumopLjpnvmh R WATERSFacility:EU tart: 02-03-2024 End: 10-34-5479Aqmzsjk encounter procedureCecelia MURILLO [facility] start: 12-05-2023 End: 46-21-1739fjyqfmiwwuYZZKQCM S NIENBERGCleveland Clinic [facility] for Rehabilitation HospitalStart: 12-05-2023 End: 44-96-7121Uihqdu outpatient visit 15 minutesAhsan Uzma Sondra PA Work Phone: [facility] - Pain Management ClinicComment on above:Spinal stenosis, lumbar region, with neurogenic claudication (Primary Dx)Start: 11-07-2023 End: 29-83-1491labogfzobhGekrphidhAdena Pike Medical Center Work Phone: Start: 11-07-2023 End: 44-73-0256Xotnifz encounter procedureUn[facility] Work Phone: Start: 39-62-8923Sjq-patient / Non-visitUnc Health [facility] Work Phone: Start: 10-07-2023 End: 13-50-7469Uoqxnmchb encounterEdd Mathew MD Work Phone: NeurologyComment on above:AppointmentStart: 10-04-2023 Telephone encounterEdd Mathew MD Work Phone: NeurologyComment on above:ResultsStart: 08-15-2023 End: 39-36-0142Tdbshs outpatient visit 15 Dennis NOVAK Work Phone: [facility] - Pain Management ClinicComment on above:Spinal stenosis, lumbar region, with neurogenic claudication (Primary Dx)Start: 08-15-2023 End: 53-67-8888kdxgqferarVPPTLUL S NIENBERGCleveland Clinic Children's Hospital for Rehabilitation HospitalStart: 73-55-7760Uucydunbn encounterEdd Mathew MD Work Phone: NeurologyComment on above:Appointment; OrdersStart: 28-24-3593Cczkwhnnc encounterEdd Mathew MD Work Phone: NeurologyStart: 05-08-2023 End: 54-54-0139eqeyvdpxukCdokdn Habboub MD Work Phone: NeurosurgeryComment on above:Radiculopathy, 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Primary Dx)Start: 05-08-2023 End: 69-30-3807Ketpsfeismld consultation with Verna Mathew MD Work Phone: [facility]OS[facility]ITALStart: 26-43-0278Mwnfpdvlx encounter Cherelle Ballard [facility] - Pain Management ClinicStart: 87-38-2943Zdwwfpyuk encounterFayettevilledagoberto [facility] - Pain Management ClinicStart: 89-67-1910Jvwmeadey encounterEdd Mathew MD Work Phone: NeurologyComment on above:Imaging DiscStart: 61-64-5263Vnaxtmacx encounterEdd Mathew MD Work Phone: NeurologyComment on above:PT CertificationStart: 09-82-8415Gzvfxbkcp encounterEdd Mathew MD Work Phone: NeurologyStart: 02-14-2023 End: 67-38-3800Uvnzhj outpatient visit [address] NOVAK Work Phone: [facility] - Pain Management ClinicComment on above:Spinal stenosis, lumbar region, with neurogenic claudication (Primary Dx)Start: 02-07-2023 End: 12-09-3448Civclhu encounter procedureZabrayan Goss [employer] Work Phone: NeurosurgeryComment on above: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)Start: 07-53-7735Uorlksyrz encounter Derick Isabel MD Work Phone: NOCComment on above:Opened In ErrorStart: 12-14-2022 Telephone encounterEdd Mathew MD Work Phone: NeurologyComment on above:FMLA PaperworkStart: 15-91-3461Setqoiqxx encounterEdd Mathew MD Work Phone: NeurosurgeryComment on above:post op updateStart: 32-39-0784Htibymjgr encounterNicbeena Rubio PA-C Work Phone: NeurologyComment on above:Medication ProblemStart: 12-07-2022 End: 18-32-4022Hkmeaxoxqj and management of inpatientTR[facility] 12-06-2022 End: 59-23-2884chxbluwuipYwhuk Qadir Other rt [employer] Other Start: 03-87-9853Ixfwew outpatient visit 25 minutes Oumou Maldonado Nephrology ClydeStart: 11-21-2022 End: 29-14-1726tvxhdzppueJAGOIJT ARCURIFacility:[facility] HospitalStart: 11-21-2022 End: 49-81-8001sdccbqndhmMVABMRV Skyler HOYFacility:[facility] Hospitaltart: 11-21-2022 End: 81-11-5314hfblikcjfbNJFAUJJ M CHALOFacility:[facility] Hospitaltart: 55-93-5868Lztytbimc for other preprocedural examinationDOUGLAS GERARDOSelect Medical Specialty Hospital - Southeast OhioStart: 11-05-2022 End: 23-24-6122Gtiiawg encounter procedureEdd Mathew MD Work Phone: NeurosurgeryComment on above: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)Start: 10-17-2022 End: 60-70-3968Bwkumvc encounter procedureMichael R NILL General Surgery Nill/Said Laura Start: 09-20-2022 End: 87-70-3188ywpzjjrsynVnndf Corinna Other [employer] Other Start: 19-32-5030Qeqfc abstractingNone (Historical) NeurologyStart: 98-88-4781Rtpxcwmyo encounterAbdul QadirFPG NephrologyStart: 07-06-2022 End: 12-32-3631sjqwmpqphhCZ CECELIA MURILLO .Facility:C0Qshkg: 06-21-2022 End: 07-68-4521gbxfdboyorYpnbr Corinna Other [employer] Other Start: 70-18-1328Shavbt outpatient visit 25 minutes Oumou QadirFPG Nephrology ClydeStart: 06-11-2022 End: 33-48-8560khnzbtyqrsRHCFE QADIRFacility:S1Nepww: 04-03-2022 End: 23-45-2223osqiwvgiyjRwwll Corinna Other [employer] Other Start: 09-43-2157Csdtgrotp encounterAbdul QadirFPG NephrologyStart: 18-44-7943Ktzehlozh for preprocedural laboratory examinationDR DOCTOR MISCThe [facility] Main Campustart: 03-19-2022 End: 92-59-9403Neypmqu encounter procedurePahiram MURILLO [facility] start: 03-15-2022 End: 89-12-5239auyrzmigimVY DOCTOR MISCFacility:S2Lbfms: 03-15-2022 End: 21-99-9195Hvrxyczoo for preprocedural laboratory examinationDR DOCTOR MISC Facility:S5Cnrnt: 03-12-2022 End: 82-35-6612iwxuqptucpGC CECELIA MURILLO .Facility:G5Cbffu: 03-08-2022 End: 43-11-5583fversycizoKT DOCTOR MISCFacility:M9Ntaqc: 76-77-5629Lfyvvpzxj for general adult medical examination without abnormal findingsDR DERICK HOY .[facility] Main Campustart: 01-24-2022 End: 32-12-2110rfvrtkudmtXE DERICK HOY .Facility:M0Vbxbl: 01-24-2022 End: 67-51-8752Vbvrdirql for general adult medical examination without abnormal findingsDR DERICK HOY .Facility:K1Gjjde: 01-22-2022 End: 74-92-1682emytfyelypUpxcf Corinna Other [employer] Other Start: 09-56-9449Imipkllit encounterAbdul QadirFPG NephrologyStart: 01-11-2022 End: 02-66-8711tfkakxvhrsSHZFESTKE NO [facility] Work Phone: Start: 01-11-2022 End: 05-89-7757Gxdzkocvii RecurringPHYSICIAN NO [facility]-Infusion Therapy - O/PStart: 01-10-2022 End: 68-27-6822qoembiwwcjXczdg Corinna Other [employer] Other Start: 35-16-5627Tnwfzderj encounterAbdul QadirFPG NephrologyStart: 01-02-2022 End: 12-86-6083kflwtwcjaiLkzmn [place] Other [place] [employer] Other Start: 45-31-2106Mseffhujp encounterAbdul QadirFPG NephrologyStart: 01-01-2022 End: 57-38-4322agcejzamjsMzjgq [place] Other [place] [employer] Other Start: 88-73-6588Rmkqmegvu encounterAbdul QadirFPG NephrologyStart: 12-21-2021 End: 78-10-4028epoejkbkseTB DERICK HOY .Facility:P7Rohjz: 50-65-3946Jcvznt outpatient visit 15 [facility] ClydeStart: 12-15-2021 Telephone encounterAbdul QadirFPG NephrologyStart: 12-15-2021 End: 45-00-8153sezkawvfadBkvya Corin[place] Other [place] [employer] Other Start: 12-15-2021 End: 78-19-5839Mrrzfrpe ReferredNP-C Estephanie Lowry Work Phone: [facility] Main CampusStart: 11-24-2021 End: 47-01-5591wrthjtrtckIRJIM QADIRFacility:U5Glnds: 11-15-2021 End: 41-50-9392ephaukycrwHWIVG QADIRFacility:S9Ginvu: 11-14-2021 End: 09-69-5185ouodotrqboGXOIQ QADIRFacility:M6Cknwz: 11-01-2021 End: 95-66-5738myevioidnaLI DERICK HOY .Facility:Q9Ykjaj: 10-31-2021 End: 62-92-0139rluwvhoozzFA DERICK HOY .Facility:U4Xrojd: 10-25-2021 End: 88-19-2323nbsympvwalAaesx Corinna Other Nort [employer] Other Start: 61-97-3062Vcjzpa outpatient new 45 minutesAbdul QadirFPG NephrologyStart: 10-18-2021 End: 76-45-7351yitemgbzpnZE DERICK HOY .Facility:V4Qtqad: 30-37-9685Bhbupxwha for other specified special examinationsDR DOCTOR [facility] Start: 49-39-5878Acxfunugk for preprocedural laboratory examinationDR [facility] Hospitaltart: 10-16-2021 End: 72-96-8742kgrkwodlabIU DERICK HOY .Facility:Y2Xvtku: 10-16-2021 End: 81-31-8551Tfevhkebd for other specified special examinationsDR DOCTOR MISC Facility:L9Wehrw: 10-13-2021 End: 18-19-5437lpeaiblalbCIQNMPWKO UNKNOWNFacility:UTMCStart: 10-10-2021 End: 22-02-7035oettdivhxgRP DERICK HOY .Facility:R2Thfom: 10-06-2021 End: 92-90-2863tjdsmykqlcFZ DOCTOR MISCFacility:G7Ocrna: 09-25-2021 End: 78-70-2272mhvbolsxnvJK DERICK HOY .Facility:K9Cipyn: 09-05-2021 End: 32-20-6100scczmqykzsCH DOCTOR MISCFacility:W0Usulr: 08-25-2021 End: 51-68-5840zuutxcihjsZQ DERICK HOY .Facility:J9Aewwv: 08-18-2021 End: 23-69-3724jcftrysbzgVLVRPHX D KATKOFacility:U9Ejptg: 08-09-2021 End: 24-63-7634yknhmcqbfrZM DERICK HOY .Facility:R8Xdupf: 08-08-2021 End: 13-07-0886nfuvweaturLW DOCTOR MISCFacility:D2Yjfzt: 07-16-2021 End: 93-54-4694Ymkjpvyhrw and management of inpatientJEFFERY VICKYLake County Memorial Hospital - Westtart: 05-24-2021 End: 33-06-7549yxyuvfcrjjQPZYGHUThe [facility] of [facility] Start: 05-24-2021 End: 25-59-1605Pywksrvprc hospital visit by Vane Mcclellan DO Work Phone: stvz 2C Ortho/Med SurgComment on above:S/P laparoscopic sleeve gastrectomy (Primary Dx)Start: 05-08-2021 End: 42-30-2479Zxspmobzxp hospital visit by Davis Mccracken 2STVZ Pre-Admit TestingComment on above:Canceled (Other)Start: 05-08-2021 End: 42-80-4575llwqvoqfdoBWVFLRYOur Lady of Mercy Hospital Start: 05-08-2021 End: 36-62-6575klqhdrwrvzASSLGNXOur Lady of Mercy Hospital Start: 05-08-2021 End: 19-45-1447Mpjnyfo encounter statusStv [facility] Start: 05-08-2021 End: 32-32-2074Ghtwgwjall hospital visit by Farrukh Mccracken [facility] RadiologyComment on above:Pre-op chest examStart: 05-08-2021 End: 03-00-0523Genqvrxpgw hospital visit by Davis Mccracken 2STVZ Pre-Admit TestingStart: 05-05-2020 End: 98-84-0895Jrrgtpi encounter procedureDouglas Kmg-Viy-Ljcpxcwc TestingStart: 02-04-2020 End: 35-75-5845Tmnmujowbx hospital visit by Sari Pruett Work Phone: [facility] [place] EchocardiographyComment on above:Arrived Start: 01-08-2020 End: 06-18-4310Fprqgqqkjp hospital visit by Tommie Muhammad Work Phone: [facility] RadiologyStart: 01-08-2020 End: 32-98-2051Yopcts outpatient new 30 minutesScott Jb Work Phone: [employer] [facility] OrthopedicsComment on above:Fluid retention in legs (Primary Dx)Start: 06-10-2019 End: 13-93-9978Oagccpf encounter procedureSELPRAKASH LEUNGIRFacility:[facility] HospitalStart: 04-16-2019 End: 48-85-4220Fpyotlh encounter procedureSRAYNA BHATTIParkview Health Start: 04-16-2019 End: 75-41-1965Cmtsxcmqtp hospital visit by physicianStc Xr Room 4STCZ [facility] HEALTHComment on above:InjuryStart: 04-11-2019 End: 46-61-4985Oabwbcexa department patient visitJARITESH ACEVEDOLos [facility] Center HospitalStart: 04-11-2019 End: 99-03-6034Bmhaoalst department patient visitSuzanne [facility] Work Phone: [facility] EDComment on above:Acute bilateral low back pain with right-sided sciatica (Primary Dx); Traumatic buttock pain Procedures DateProcedureProcedure DetailPerforming ClinicianStart: 21-21-4027Gegrxxhazr Yarely [place] Start: 16-84-6450Rugbhpbs screenDOUGLAS HOYComment on above:Order Comment: Specimen Type: BLOOD SPECIMENOrdering Facility: [facility] Address:[address] [place], [place] [address]Performed By: #### [id number] ####CC MAIN BLOOD BANKCLIA [id number] [place] [address] [place] AMERICAStart: 62-83-2193Yuvwuxidariv of kneePatrick MURILLO Start: 93-07-9087Enuwfd spinal fusionPatrick MURILLO Start: 34-73-7362ADT screeningDR CECELIA MURILLO . Comment on above:Performed By: #### PTT #### [facility] [address] [place] [address] Dr. Hugh LandisStart: 63-02-5534Trgygztzhxw removal of ureteric stentPatrick MURILLO Start: 79-88-1682Wkwzvpxwixbrer shockwave lithotripsy of calculus of kidneyPatrick [employer] Start: 48-09-5876Eemxwoaxtwn insertion of ureteric stentPatrick [facility] Start: 61-59-6257NCJD O2 EVAL (DESATURATION SCREEN) Octavio Mcclellan [employer] Work Phone: Start: 80-37-4754Reryk of Valerio Hernandes MD Work Phone: Start: 46-19-9266SNBUQPVM PATHOLOGY REPORTOctavio Mcclellan DO Work Phone: Start: 16-92-7474Pgujc metabolic panel calcium total Octavio Mcclellan [employer] Work Phone: Start: 01-02-4691Wgiqyxa blood reagent stripOctavio Mcclellan [employer] Work Phone: Start: 92-31-3824Ffwqrgq ionizedMegan I Desiree DO Work Phone: Start: 65-44-9248Eyj routine ecg w/least 12 lds w/i&r Sonya I Desiree DO Work Phone: Start: 05-24-2021 End: 19-44-6930Dzzzk metabolic panel calcium totalOctavio Mcclellan DO Work Phone: Start: 05-24-2021 End: 14-74-5091Nodl gstrc rstrictiv px longitudinal gastrectomyOctavio Mcclellan DO Work Phone: Start: 56-29-3681Vkbg bld gluc mntr dev cleared fda spec home useOctavio Mcclellan DO Work Phone: Start: 19-72-8519Irlruzpqq [Moles/volume] in Serum or PlasmaOctavio Mcclellan [employer] Work Phone: Start: 50-28-5065EYUNA-19, RAPIDOctavio Mcclellan [employer] Work Phone: Start: 71-19-7212Obwwpqbyxb exam chest 2 viewsOctavio Mcclellan DO Work Phone: Start: 96-91-9392Yhrqa of nicotineGregjuan Mcclellan DO Work Phone: Start: 60-54-9015Lifni metabolic panel calcium total Octavio Mcclellan DO Work Phone: Start: 63-82-2052Ztu routine ecg w/least 12 lds trcg only w/o i&rGregjuan cMclellan DO Work Phone: Start: 89-10-1939Sjdkymo sleeveMichael NILL Start: 34-16-0363Ybpnbbpbx on stomachPatrick MURILLO Start: 77-46-6725SoslkzuyzxPcjjwav MURILLO Start: 52-29-2621Fgulqibxtcdmjw shockwave lithotripsy of ureterPatrick MURILLO Start: 42-38-6747Jwijz spine lumbosacral 2/3 viewsJAMES BROSCHAKStart: 28-39-6121Bqfxt spine lumbosacral 2/3 viewsSusaalex Gordon Bhatti Work Phone: Start: 38-37-5839Br lumbar spine w/o contrast material SUZANNE REHANtart: 49-70-0025Vwdupapsml examination pelvis 1/2 viewsJAMES TAMIKAAKStart: 96-58-5000Lb lumbar spine w/o contrast materialAdrienne C Eric Work Phone: Start: 06-74-3578Qaluoehquu examination pelvis 1/2 viewsAdrienne C Lowe Work Phone: Start: 95-27-2949CxqpfxtwabxJqarpyl NILL Start: 39-14-3482vbbjn rt retrograde rt ureteroscopy rt holmium laser lithotripsy rt j stent with stringPatrick MURILLO ankle joint operationsPatrick MURILLO Bilateral replacement of knee jointsPatrick MURILLO Chondrectomy of semilunar cartilage of kneeMichael NILL CystoscopyPatrick MURILLO Lumbar spinal fusionPatrick MURILLO Urine culturePHYSICIAN NO FAMILY Plan of Treatment DateCare ActivityDetailAuthorStart: 31-11-2920Gzpfhjjg Cancer Screening DiscussionProstate Cancer Screening DiscussionUniversity Hospitals Lake West Medical Centertart: 01-24-2027 Prostate specific antigen measurementProstate Cancer Screening Discussion [facility] Centertart: 16-49-8563hqfofcmfvpXdsokstrfsAlwhjueu:EU BellevueStart: 71-48-4959Fhdov BMI ScreeningAdult BMI ScreeningMemorial Health System [facility] SystemStart: 99-12-5441Dcuccnb ScreeningTobacco ScreeningCentral Carolina Hospitaltart: 65-17-7421Embng BMI ScreeningAdult BMI ScreeningCentral Carolina Hospitaltart: 30-06-6938Oaaidcf ScreeningTobacco ScreeningCentral Carolina Hospitaltart: 39-12-1170Vqryoceyl vaccinationInfluenza Vaccine (Season Ended)[facility] Start: 90-91-1453Cglytbe ScreeningTobacco ScreeningMemorial Health System [facility] SystemStart: 18-44-9488Fccwv BMI ScreeningAdult BMI ScreeningCentral Carolina Hospitaltart: 86-02-3643Feelxpd ScreeningTobacco ScreeningCentral Carolina Hospitaltart: 02-13-2024 End: 43-54-9363Mpwuggk encounter /19/2024 10:45 AM EST Office Visit [facility] [address] [place] [address] Ahsan Flynn, SCARLET [address] [place] [address] [facility] ClinicStart: 76-45-1072Qejrnrntsk measurementSerum CreatinineUniversity Hospitals Lake West Medical Centertart: 55-75-4328Wqoma Creatinine Serum CreatinineUniversity Hospitals Lake West Medical Centertart: 03-83-0302Jknjs-19 Vaccine ( season)Covid-19 Vaccine ( season)[facility] Centertart: 10-27-2023 Influenza vaccinationUniversity Hospitals Lake West Medical Centertart: 10-07-2023 End: 81-56-0294Ejrpgh-up encounterNeurosurgeryComment on above:FOLLOW UPStart: 94-12-5497UVE Vaccine (1 - 1-dose 60+ series)RSV Vaccine (1 - 1-dose 60+ series) [facility] Centertart: 23-15-5521ELW Vaccine (1 - Risk 60-74 years 1-dose series)RSV Vaccine (1 - Risk 60-74 years 1-dose series)[facility] Centertart: 08-15-2023 End: 02-16-1209Jmuklsk encounter atfszwrhh07/20/2024 11:15 AM EDT Office Visit [facility] [address] [place] [phone] Ahsan Flynn PA [address] [facility] [place] [address] [facility] ClinicStart: 98-25-5357Veqmpbnlch A1c zxtgoukkzfeEhB6NWzfxcbynz ClinicStart: 13-69-5322Pblgvansqg A1c/Hemoglobin.total in PpkgfTlQ6KBmqinhmgk ClinicStart: 45-66-3337Qxtlssxrjs Health Screening Behavioral Health ScreeningUniversity Hospitals Lake West Medical Centertart: 55-85-1720Jtvsatzyji AssessmentDepression AssessmentUniversity Hospitals Lake West Medical Centertart: 01-20-2023 End: 43-67-1529Mkkvs spine lumbosacral 2/3 viewsXR LUMBAR LIMITED 2V AP/LAT Radiology Routine Lumbar adjacent segment disease with spondylolisthesis Expected: 01/20/2023, Expires: 01/19/2024[facility] Work Phone: comment on above:Expected: 01/20/2023, Expires: 01/19/2024Start: 13-27-8041Kbnvf-19 Vaccine ( season)Covid-19 Vaccine ( season)[facility] Centertart: 76-64-0188Lpjqcekuz vaccination [facility] Centertart: 20-59-6113Hefosaigmo measurementCreatinine monitoring [facility] CenterStart: 68-90-9443Pgkhsmlik monitoringPotassium monitoringUniversity Hospitals Portage Medical CenterStart: 80-27-6454Hgogmbqsds measurementCreatinine monitoringUniversity Hospitals [facility] Start: 96-73-3494Zguqutnzq monitoringPotassium monitoringUniversity Hospitals Portage Medical CenterStart: 51-81-3341VFNSOQMMXW ASSESSMENTDEPRESSION ASSESSMENTUniversity Hospitals Lake West Medical Centertart: 48-71-8383Iaqjwxsewd A1c vikrcvjuahsD8Y test (Diabetic or Prediabetic)[facility]art: 16-04-6885Aldad panelLipid screenUniversity Hospitals Portage Medical CenterStart: 10-26-2021 Influenza vaccinationFlu vaccine (Season Ended)[facility] Hospitalart: 06-06-2021 End: 75-49-9153Vqhjzps encounter vsgymfhti88/12/2022 Office Visit Oncology Spencer Blackwell MD [address] [place] [address] [facility] CAMPUStart: 06-02-2021 End: 17-39-4159Hsdyitg encounter ezlkbwydd71/08/2022 Office Visit Bariatrics Octavio Mcclellan DO [address] [facility] [address] [place] [phone] Heydi [facility] Invasive Bariatric SurgStart: 05-24-2021 End: 57-81-9107Qysfqzkqo to same day surgery [facility] NorthT ORComment on above:XI ROBOTIC LAPOROSCOPIC GASTRECTOMY SLEEVE, LIVER BIOPSY, EGD- GI SCHEDULEDXI ROBOTIC LAPOROSCOPIC GASTRECTOMY SLEEVE, LIVER BIOPSY, EGD- GI SCHEDULED, POSSIBLE OPENStart: 05-24-2021 End: 94-50-8492Vare gstrc rstrictiv px longitudinal gastrectomyMercy Health Kings Mills Hospitaltart: 30-64-7125Jowdfjuhuy hospital visit by physician 05/24/2021 Hospital Encounter IP Unit Octavio Mcclellan DO [address] [place] [address] [facility] Start: 05-19-2021 End: 30-75-3388Nfmosig encounter panmanwnn27/25/2022 Appointment Pre-Admission TestingMTHZ PRE ADMITStart: 05-18-2021 End: 74-87-8804Huztuij encounter /24/2022 Office Visit Bariatrics Octavio Mcclellan, DO [address] [facility] [place] [address] [facility] Invasive Bariatric SurgStart: 37-03-5152Yqmouqmdd vaccinationFlu vaccine (#1)[facility] CenterStart: 04-04-2020 End: 09-77-8519Gbqhrl Visit04/04/2020 Office Visit Cardiovascular Medicine Suzanne Pruett MD [address] [place] [address] [phone] [facility] CardiologyStart: 02-02-2020 End: 31-53-4308Hnifgt Visit02/02/2020 Office Visit Cardiovascular Medicine Suzanne Pruett MD [address] [place] [address] [phone] [facility] CardiologyStart: 86-52-6859Hkqibiiqu vaccination INFLUENZA VACCINE (#1)[facility]: 61-56-3452Vzlputhny vaccination Flu vaccine (#1)[facility] [employer] Phone: start: 74-57-6793JZIJBWSH CANCER SCREENING DISCUSSION PROSTATE CANCER SCREENING DISCUSSIONUniversity Hospitals Lake West Medical Centertart: 09-10-2013 Administration of varicella zoster vaccineZoster (Shingles) Vaccine (1 of 2) ProMLakeview Hospital SystemStart: 42-36-1617Gxwcs cancer screen colonoscopyColon cancer screen colonoscopyGalion Community Hospital [employer] Phone: start: 23-46-4877HbxvaiztigiLTFZIVHDZL CANCER SCREENING DISCUSSIONWooster Community Hospital SystemStart: 84-96-0315Mpuzdigw specific antigen measurementPROSTATE CANCER SCREENING DISCUSSIONTrinity Health Systemtart: 08-04-4616Uzywhpem Vaccine (1 of 2)Shingles Vaccine (1 of 2)[facility] CenterStart: 38-75-3788SPPQTMNU VACCINE (1 of 2)SHINGRIX VACCINE (1 of 2)[facility] Start: 68-24-7604Aqxtho vaccine hzv live for subcutaneous useZOSTER (SHINGLES) VACCINE (1 of 2)[facility] Systemtart: 54-85-2101XWWTUEKDS (FIT-DNA)COLOGUARD (FIT-DNA)[facility] Centertart: 06-35-4034RfpqyxqzbkoLMSSDQJDMHOPrubiwnyo ClinicStart: 71-42-7928SANIYHWOQY CANCER SCREENINGCOLORECTAL CANCER SCREENING [facility] Centertart: 83-77-3542KL COLONOGRAPHYCT COLONOGRAPHYSamaritan Hospital Start: 48-87-8189ZVDGHEFV SCREENDIABETES SCREENUniversity Hospitals Lake West Medical Centertart: 09-10-2008 Diabetes ScreeningDiabetes ScreeningUniversity Hospitals Lake West Medical Centertart: 57-74-7777XLGIW OCCULT BLOODFECAL OCCULT BLOODUniversity Hospitals Lake West Medical Centertart: 60-99-9928Pxzxapuzk for malignant neoplasm of colonUniversity Hospitals Portage Medical CenterStart: 14-62-3340ENQAQYWNIWXBJ SIGMOIDOSCOPYUniversity Hospitals Lake West Medical Centertart: 64-42-2607Dauxqmay screenDiabetes screen [facility] Work Phone: start: 61-14-3386Ktqyzxt lipid profileLIPID SCREENING [facility] Systemtart: 87-90-8611Trooz screenLipid screenUniversity Hospitals [facility] Center [employer] Phone: start: 88-88-6170Snupt 1996 panel - Serum or Plasma Lipid ScreeningUniversity Hospitals Lake West Medical Centertart: 47-73-9792IGMUY SCREENLIPID SCREEN [facility] Centertart: 37-20-3626OAsD,Tdap and Td Vaccines (1 - Tdap)DTaP,Tdap and Td Vaccines (1 - Tdap)[facility]art: 04-74-7639RNsQ/Tdap/Td vaccine (1 - Tdap)DTaP/Tdap/Td vaccine (1 - Tdap)[facility] CenterStart: 09-10-1982 Hepatitis B vaccine (1 of 3 - Risk 3-dose series)Hepatitis B vaccine (1 of 3 - Risk 3-dose series)[facility] CenterStart: 02-26-6080Jflvnbrsirzk Vaccine: 50+ (1 of 2 - PCV)Pneumococcal Vaccine: 50+ (1 of 2 - PCV)[facility] Centertart: 62-73-1451Hikzj diphtheria, tetanus and acellular pertussis (DTaP) vaccination TDAP (ADULT)[facility] Systemtart: 26-36-1800Wvzar microalbumin profile [facility] Centertart: 38-39-4756Oorjf BMI Follow Up PlanAdult BMI Follow Up PlanCentral Carolina Hospitaltart: 38-90-4567Txlbya PCP Team Chronic Disease VisitAnnual PCP Team Chronic Disease VisitUniversity Hospitals Lake West Medical Centertart: 73-15-9076OB Controlled (<130/80)BP Controlled (<130/80)[facility] Centertart: 09-10-1981 Depression ScreeningDepression ScreeningUniversity Hospitals Lake West Medical Centertart: 09-10-1981 Diabetic retinal examDiabetic retinal examUniversity Hospitals Portage Medical CenterStart: 80-65-3581Mdswwyrhp B surface antibody levelLDL CholesterolUniversity Hospitals Lake West Medical Centertart: 09-10-1981 HEPATITIS C SCREENINGHEPATITIS C SCREENINGUniversity Hospitals Lake West Medical Centertart: 09-10-1981 Hepatitis C screeningHepatitis C ScreeningKettering Health Miamisburgrt: 05-51-5886QYZ SCREENINGHIV SCREENINGUniversity Hospitals Lake West Medical Centertart: 99-04-1882AOX screeningHIV ScreeningUniversity Hospitals Lake West Medical Centertart: 08-12-0213Rufhawg vaccinationTETANUSAAvita Health System Bucyrus Hospitaltart: 74-55-2796Qzjkn screening for proteinDiabetic microalbuminuria testUniversity Hospitals Portage Medical CenterStart: 19-35-9707KLG screenHIV screenKettering Health Greene Memorial Phone: start: 29-58-9689ORB screeningHIV screenUniversity Hospitals Port[facility] Medical Center Start: 28-14-6911FTY screeningHIV SCREENING DISCUSSIONTrinity Health Systemtart: 98-37-3708Htiiadxpbg ScreenDepression ScreenUniversity Hospitals Portage Medical CenterStart: 1975 Depression ScreeningDepression ScreeningCentral Carolina Hospitaltart: 09-10-1974 DTaP/Tdap/Td vaccine (1 - Tdap)DTaP/Tdap/Td vaccine (1 - Tdap)[facility] Phone: start: comp foot exam completedDiabetic Foot ExamUniversity Hospitals Lake West Medical Centertart: 16-78-5608Jgzhvzly foot examinationDiabetic foot examUniversity Hospitals Portage Medical CenterStart: 27-67-8216Fymqnrkr screeningDilated Retinal Exam [facility] Centertart: 87-36-5418Nagnvxive B screeningUrine Albumin:Creatinine RatioUniversity Hospitals Lake West Medical Centertart: 42-29-4286Dmohggzpq C antibody, confirmatory test Dilated Retinal ExamUniversity Hospitals Lake West Medical Centertart: 07-31-3569Ccilimuotput 0-64 years Vaccine (1 of 2 - PPSV23)Pneumococcal 0-64 years Vaccine (1 of 2 - PPSV23)[facility]art: 11-34-4243Brtegkongtwy vaccinationUniversity Hospitals Lake West Medical Centertart: 09-10-1968 COVID-19 Vaccine (1)COVID-19 Vaccine (1)[facility]: 87-38-7837XQLBQ-19 VACCINE (#1)COVID-19 VACCINE (#1)[facility] Centertart: 04-96-5505Lxtvreoql C antibody, confirmatory testHEPATITIS C VIRUS SCREENINGTrinity Health Systemtart: 91-36-7429Wvbocxevh C screenHepatitis C [facility] Work Phone: start: 65-44-3360Sdvctyfhz C screeningHepatitis C [facility] Hospitalart: 49-24-6079Kwisllelk [Moles/Vol][facility] HospitalBacteria identified in Urine by CultureMckitrick Hospital Chlamydia trachomatis DNA [Presence] in Unspecified specimen by MUKUL with probe detectionWvumedicine [facility] Work Phone: Continuous pulse oximetryPulse oximetry, continuous Respiratory Care Routine Every 4hr until discontinued starting 05/24/2021[facility] Work Phone: comment on above:Every 4hr until discontinued starting 2CT LUMBAR SPINE WO CONTRASTCT LUMBAR SPINE WO CONTRAST Imaging STAT 04/11/2019 1:43 PM [facility]Gal[facility] [place] Work Phone: Neisseria gonorrhoeae DNA [Presence] in Unspecified specimen by MUKUL with probe detectionWvumedicine [facility] Ctr Work Phone: Oxygen therapy [Minimum Data Set]Initiate Oxygen Therapy Protocol Respiratory Care Routine As Needed until discontinued starting 05/24/2021[facility] Work Phone: comment on above:As Needed until discontinued starting 05/24/2021adiography for bone length studiesXR BONE LENGTH STUDY Imaging Routine Hx of total knee arthroplasty, right 01/08/2020 1:37 PM WonoloRenal function 2000 panel - Serum or PlasmaGuernsey Memorial Hospitalpirometry panelIncentive spirometry Respiratory Care Routine Every 2hr while awake until discontinued starting 05/24/2021[facility] Work Phone: comment on above:Every 2hr while awake until discontinued starting 05/24/2021urgical PathologySurgical Pathology Lab Routine Release Upon Ordering for 1 Occurrences starting 05/24/2021[facility] Phone: comment on above:Release Upon Ordering for 1 Occurrences starting 05/24/2021Trichomonas vaginalis DNA [Presence] in Unspecified specimen by MUKUL with probe detectionOhiohealth Shelby Hospital Work Phone: X-ray of right kneeXR KNEE RIGHT 3 VIEWS Imaging Routine Hx of total knee arthroplasty, right 01/08/2020 1:37 PM Wonolo End: 34-11-6513VL Lumbar spine AP and LateralXR LUMBAR LIMITED 2V AP/LAT Radiology Routine Radiculopathy, lumbar region 1 Occurrences starting 05/08/2023 until [facility] Work Phone: Comment on above:1 Occurrences starting 05/08/2023 until [facility] Immunizations Immunization DateImmunizationNotesCare JtvgzntoUpqppckh89-78-9150girvdmglz virus vaccine, unspecified formulationEdd Mathew MD Work Phone: [facility] Payers DatePayer CategoryPayerPolicy [id number] Health [id number] 1.2.840.957144.1.13.172.2.7.3.498882.22407-38-9666Zbvpkq's Compensation 24-19-3283Bzietnpuxp (not Medicare or Medicaid)[facility] [address] [place] [address] 1.2.840.644102.1.13.159.2.7.9.095242.39589.41359-85-3158TndxqraBKRQDL MANAGEMENT SOLUTIONS HEALTH MGMT SOLUTIONS [facility] xxxxxxxx 2019-Present [phone] [place], [place] [address]dxvikowj 1.2.840.791454.1.13.239.2.7.3.065202.05281-43-8398Scdnqkh8144385551-16-8682 Sknoaxt0642186-37-1794ZbwsiobHRDNBQ MANAGEMENT SOLUTIONS HEALTH MGMT SOLUTIONS [facility] xxxxx 2019-Present [phone] [facility] [address] [place], [place] [address]kxyju 1.2.840.789987.1.13.239.2.7.3.979273. Unknown1.2.840.204656.1.13.159.2.7.3.047194.94951-72-5296Gwhbea's Comp Other [facility] 1.2.840.945668.1.13.424.2.7.9.424632.306.58229-15-4700Pcgrdbl84-32118363-91-3259 Private Health OqamddcnzR79230433980-03-3178Axweitd Health InsuranceAETPRISCILA FARRIS xxxxxxxxxx 2014-Present [phone] [facility] [address] [place] [address] xxxxxxxxxx 1.2.840.430812.1.13.239.2.7.3.285847.14991-04-9010Ryofevh Health Uo[id number] 2.840.1.136364.3.579.2. Ctjrcyz45000378 2.840.1.426326.3.579.[id number] 2.840.1.092478.3.57[id number] 2.840.1.817953.3.579.[id number] 2.840.1.315330.3.579.2.41[id number] 2..840.1.053143.3.57[id number] 2.840.1.678228.3.579.2.05378-48-8130Yqhseal9800812 2.16.840.1.538650.3.579.2.36093-57-8232Viufvrj8639799 2.840.1.632538.3.579.2.16261-95-5517Mkpuuok8962891 2.16840.1.394497.3.579.2.61861-09-1722Txlfwkj0688929 2.840.1.395241.3.579.2.05586-95-5902Brcfvjv5086302 2.16.840.1.797975.3.579.2.69681-22-0152Yenlzlv5566493 2.840.1.438051.3.579.2.57992-61-2009Xkfpswj8812762 2.840.1.235249.3.579.2.51678-57-8319Ejledkl3100131 2.840.1.397601.3.579.2.40362-52-3501Gresmph7464569 2.840.1.425095.3.579.2.07278-85-8679Vzucbdq3041629 2.840.1.521632.3.579.2.66368-94-7332Yqbuwrq7845041 2.840.1.946400.3.579.2.41041-89-4080Fjtxmem1810868 2.840.1.292359.3.579.2.14584-23-7521Tqwljkv1658976 2.840.1.815259.3.579.2.85529-42-6560Vxhawsh4846655 2.840.1.066793.3.579.2.31240-19-0836Ygwdget8579247 2.840.1.154770.3.579.2.56941-73-9446Gimnzxz0442104 2.840.1.473129.3.579.2.26104-47-0965Ariwogq1197663 2.840.1.412630.3.579.2.83065-96-7119Hxfydxn3515113 2.16.840.1.726412.3.579.2.19204-73-9037Jwaknoi9085408 2.840.1.753823.3.579.2.89003-97-9483Jihlmnd7615723 2..840.1.136999.3.579.2.04199-36-2601Fxxtboc6617728 2.840.1.758170.3.579.2.18620-26-5669Ihyancx9358104 2.840.1.675643.3.579.2.96586-32-5184Zxzyrdp86935716 2.840.1.903487.3.579.2.421762-01-4724Skjdzkc22333890 2.840.1.575659.3.579.2.887707-29-9852Kqcpjul12475363 2.840.1.335907.3.579.2.877380-67-2431Tbulnmt24525508 2.840.1.629677.3.579.2.67590-83-6643Dhxkwea23974004 2.840.1.703379.3.579.2.61255-18-6551Bihatvi77185700 2.840.1.518882.3.579.2.31217-62-0658Aqvrecu34176394 2.840.1.560237.3.579.2.07678-29-0991Axajyqe74332906 2.840.1.063959.3.579.2.21892-09-3322Rybhkrj99988753 2.840.1.710518.3.579.2.34668-30-1629YkvoplwT22003723 1.2.840.858845.1.13.239.2.7.3.410155.34008-42-4187Hkjkazj60374816Qrsw-hlk [id number] 8a159aay-9i46-32vb-12oc-z90205s416x4Dgmkvuq7653729904 2.16.840.1.523655.26Rhodrnf97346665 2.16.840.1.470374.3.579.2.531 Social History DateTypeDetailFacilityStart: 04-11-2019 End: 56-34-7739Ldhtwkp smoking status NHISNever smokerAkron Children'S HospitalKyteStart: 04-11-2019 End: 34-21-7839Rpryzlb intakeLifetime non-drinker (finding)[employer] Phone: start: 04-11-2019 End: 27-96-3621Baendsq SDOH Alcohol Ermymxeiq9[facility]vd[facility] Work Phone: start: 98-04-3046Yrr [facility]Not [facility] [place] Work Phone: start: 11-26-2013 End: 43-95-7313Whwlbfi use and exposureNever usedWooster Community Hospital SystemStart: 19-82-4900Key Assigned At [facility] Healthcaretart: 04-08-2021 End: 02-68-4369Btfazrvt to SARS-CoV-2 (event)Not [facility] Phone: start: 11-05-2022 End: 70-28-2384Zbo Assigned At [facility]tart: 01-26-2014 End: 14-67-3382Xabffts intakeCurrent non-drinker of alcohol (finding)[facility] smoking statusNeverGeneral Surgery BellevueStart: 11-05-2022 End: 91-49-3890Zvwexff of Social functionProMedica Health SystemStart: 12-05-2023 End: 40-23-8252Hevfpbyel beverage intakeEx-drinker (finding)[facility] SystemStart: 06-08-2009 End: 57-63-0223EniOmtk (finding)Netology SystemSexual Orientation [facility] Medical Equipment Procedure CodeEquipment CodeEquipment Original TextEquipment IdentifierDates CYSTOSCOPY W/ HOMIUM LASER JOSE G JACOBS, Octavio Myers 03/28/20 Unknown Abdomen {01}[id number]{[id number]{10}[id number] FDAStart: 67-89-2142Zfcvt Darby 3 Titanium Set Merlyn Spine - [id number]: 27-90-1611Qwybt Darby 3 Gloria 6.5mm 50mm Bone Polyaxial Nonsterile Spine - [id number]: 43-96-7286Wmamou Ba2x Bioactive Bone Graft Substitute 5.0cub [id number] Start: 76-57-7214Nmss Tritanium 6d 44y59y31nv Spinal Sterile Latex Free Lumbar Posterior - [id number]: 83-92-5724Tqes Tritanium 6d 21a20q56io Spinal Sterile Latex Free Lumbar Posterior - [id number]: 53-62-0574Jkccb Darby 3 Gloria 6.5mm 45mm Bone Polyaxial Nonsterile Spine - [id number]: 12-07-2022 Goals DatePatient GoalDesired Activity/State Functional Status YnnaQdkokszczfTpqnrxIkrmmywf18-04-3440Cgnjxjhjgx StatusN/AExec[facility]10-17-2023Are you deaf, or do you have serious difficulty hearingNo 12/11/2022 12:52 PM EDT Livia Calix RN [facility]10-17-2023Are you blind, or do you have serious difficulty seeing, even when wearing glassesNo 12/11/2022 12:52 PM EDT Livia Calix RN [facility]10-17-2023Do you have serious difficulty walking or climbing stairsNo 12/11/2022 12:52 PM EDT Livia Calix RN [facility] 04-66-1400Po you have difficulty dressing or bathingNo 12/11/2022 12:52 PM EDT Livia Calix RN [facility] HospitalOzzbli24-21-8251Qudhjfh of a physical, mental, or emotional condition, do you have difficulty doing errands alone such as visiting a physician's office or shoppingNo 12/11/2022 12:52 PM EDT Livia Calix RN [facility] HospitalDjsbnr37-49-5540Bguevovzml StatusN/AGeneral Surgery Cwbfrikv14-05-7559Oaeospcylq StatusN/AExec[facility] Mental Status MuwyPirbyugdhoNbebypWhkmbhnx56-70-8039Zrhhonk of a physical, mental, or emotional condition, do you have serious difficulty concentrating, remembering, or making decisionsNo 12/11/2022 12:52 PM EDT Livia Calix RN [facility] Clinical Notes 05-03-2021 to 11-19-2024 Note Date & OwjeBrrhHegnntzt26-18-6317 Hospital Discharge instructions Patient Education 11/19/2024 11:41:03 Kidney Stones, Oqda-mu-Hsbi Kidney Stones Kidney stones are rock-like masses [...] Follow these instructions at home: Medicines Take wdyl-aik-vhpdjsg and prescription medicines only as told by [...] provider. Document Revised: 10/05/2022 Document Reviewed: 10/05/2022 [employer] Patient Education 2023 [employer]. Follow Up Care 11/16/2024 09:50:41 With:LIDIA JACOBS, Cecelia Jj, URL Address: [address] [place] [address]- When: Unknown Comments:as scheduled [facility] 09-25-2025 NotePatient Education Urology Kidney Stones Kidney stones are [...] these instructions at home: Medicines ??? Take dtdu-ywm-tebslyg and prescription medicines only as told by [...] provider. Document Revised: 10/05/2022 Document Reviewed: 10/05/2022 [employer] Patient Education ? 2023 [employer].[facility] 08-07-2024 Hospital Discharge instructions Patient Education [...] include: ?8 oz (237 mL) of milk, ygqgonr-bofwninzrnzs-ismmf milk, and calcium- fortifiedfruit juice. Calcium-fortified means that calcium has been [...] the table and allow each person to addtheir own salt to taste. Use vegetable protein, such as beans, textured vegetable protein (TVP), or tofu, instead of meat inpasta, casseroles, and soups. Meal planning Eat less [...] portion sizes. For most meat and fish, oneserving is about the size of the palm [...] potatoes, and Nepalese chard. ?Peanuts. ?Potato chips, finnish fries, and baked potatoes with skin on. ?Nuts and nut products. ?Chocolate. If you regularly take a diuretic medicine, make sure to eat at least 1 or 2 servings of fruits or vegetables that are high in potassium each day. These include: ?Avocado. ?Banana. ?[place]uc[place], prune, carrot, or tomato juice. ?Baked potato. [...] magnesium, fish oil, or vitamin B6. Take kpxy-urd-egreyxb and prescription medicines only as told by [...] Casseroles. Pizza. Lasagna. Frozen meals. Potato chips. Chinese fries. The items listed above may not be a complete list of foods and beverages you should limit. Contact a dietitian for more information. What foods should I avoid? Talk to your dietitian about specific foods you should avoid based on the type of kidney stones youhave and your overall health. Fruits Grapefruit. The item listed above may not be a complete list of foods and beverages you should avoid. Contact adietitian for more information. Summary Kidney stones are [...] provider. Document Revised: 05/24/2022 Document Reviewed: 05/24/2022 [employer] Patient Education 2023 [employer] Follow Up Care 07/03/2024 14:31:41 With:LIDIA JACOBS, Cecelia Jj, URL Address: [address] [place] [address]- When: Unknown [facility] [employer] 06-13-2025 NotePatient Education Nephrology Dietary Guidelines to Help Prevent [...] labels. Limit your salt (sodium) intake to lessthan 1,500 mg a day. ??? Choose foods with calcium for each meal and snack. Try to eat about 300 mg of calcium at each meal. Foods that contain 200?500 mg of calcium a serving include: ? 8 oz (237 mL) of milk, jtrqszf-uosbrmdsdyjr-pwgqb milk, and calcium- fortifiedfruit juice. Calcium-fortified means that calcium has been [...] on the table and allow each person toadd their own salt to taste. ??? Use [...] Spinach (cooked), rhubarb, beets, sweet potatoes, and Nepalese chard. ? Peanuts. ? Potato chips, finnish fries, and baked potatoes with skin on. ? Nuts and nut products. ? Chocolate. ??? If you regularly take a diuretic medicine, make sure to eat at least 1 or 2 servings of fruits or vegetables that are high in potassium each day. These include: ? Avocado. ? Banana. ? [place]ucoa, prune, carrot, or tomato juice. ? Baked potato. ? Cabbage. ? Beans and split peas. Lifestyle ??? Drink enough fluid to keep your urine pale yellow. This is the most important thing you can do.Spread your fluid intake throughout the day. ??? [...] fish oil, or vitamin B6. ??? Take esqv-zke-vhxzfgv and prescription medicines only as told by your health (more content not included)...[facility]04-23-2025 Note Orthopedic Surgery Subjective Chief complaint: No [...] CT of the right knee completed at [facility] which we do not have access [...] extremiti (more content not included)... [facility]03-24-2025 NoteOrthopedic Surgery Subjective Chief complaint: Chief Complaint [...] CT of the right knee completed at [facility] which we do not have access [...] hyperplasia) CKD (chronic kidney disease) 3 Diabetes ([facility]) GERD (gastroesophageal reflux disease) Hyperlipidemia [...] of the right k (more content not included)...[facility]02-14-2025 Miscellaneous Notes* Telephone Encounter - Cherelle Oleary RN - 04/10/2024 2:13 PM EST Patient brought in [employer] forms on 04/07/2024. Patient was informed at thattime that this office does not do anything with disability form however, we would be happy to provide office notes if he would like. This was again discussed with Diallo who confirmed the above. Patient asks if Dr. Lackey would be willing to complete the disability forms. This matter was discussed with Dr. Lakcey today and he too stated that this office does not completedisability forms. Call was placed to patient. He was informed of the above information. If patient requests, office visit notes can be submitted via [facility] Medical Records. documented in this encounterNewark Hospital02-14-2025 Telephone encounter Note* Telephone Encounter - Cherelle Oleary RN - 04/10/2024 2:13 PM EST Patient brought in [employer] forms on 04/07/2024. Patient was informed at thattime that this office does not do anything with disability form however, we would be happy to provide office notes if he would like. This was again discussed with Diallo who confirmed the above. Patient asks if Dr. Lackey would be willing to complete the disability forms. This matter was discussed with Dr. Lackey today and he too stated that this office does not completedisability forms. Call was placed to patient. He was informed of the above information. If patient requests, office visit notes can be submitted via [facility] Records. [facility]01-07-2025 Miscellaneous Notes* Telephone Encounter - Cherelle Oleary RN - 03/03/2024 10:14 AM EST Patient called today to follow up on his request for a written statement stating that provider feels that patient is totally disabled. Patient is informed that this office does not write such letters, however, office notes can be faxed to his contract attorney's office if that would be beneficial. documented in this encounterNewark Hospital01-07-2025 Telephone encounter Note* Telephone Encounter - Cherelle Oleary RN - 03/03/2024 10:14 AM EST Patient called today to follow up on his request for a written statement stating that provider feels that patient is totally disabled. Patient is informed that this office does not write such letters, however, office notes can be faxed to his contract attorney's office if that would be beneficial. [facility]12-19-2024 History of Present illness Narrative* SCARLET Agustin - 02/13/2024 10:45 AM EST [facility] [address] [place] [address] Patient: Sukhdeep Prateek Simental Sex: male : 1965 Age: 58 y.o. PCP: DERICK ISABEL MD 02/13/2024 Sukhdeep Simental is here for a(n) follow up for his [facility] work injury. Sukhdeep is unable to ambulate without use of a walker. Attempting to ambulation without use of walker results in patient falling. He is unable to go upstairs due to right leg weakness. He must reposition himself frequently while sitting. He is barely able to bend over, he cannot squat. Reaching pulls and causes right arm weakness . 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 Chief Complaint Patient presents with Back Pain [facility] HPI: 12/07/2022 L2/3 fusion and revised L3/4, S1 at [facility] per patient. Bilateral SI joint injection on 04/17/2021 with 10% relief, pain is worse. 07/07/21 Bilateral L3/4 Medial branch block with no relief. right L 3, 4 nerve root injection on 09/01/2021 with no relef. Back Pain This is a chronic problem. The current episode started more than 1 year ago (surgery 10/16/18 discectomy and 07/10/2019 fusion in [place]). The problem occurs constantly. The problem is unchanged. The pain is present in the lumbar spine, gluteal and thoracic spine. The quality of the pain is described as aching, stabbing, shooting and cramping (spike pain). The pain radiates to the right thigh (statespain to right thigh is 60% better than previous visit). The pain is at a severity of 8/10 (higher pain level in the mornings (9/10)). The pain is severe. The pain is The same all the time. The symptoms are aggravated by standing, sitting, lying down, bending and twisting (walking). Stiffness is pres ent In the morning. Associated symptoms include leg pain (Right anterior/posterior thigh 60% betterpost surgery), numbness (Right hand d/t positioning from surgery from right elbow to middle, ring and pinky fingers) and weakness (BLE uses wheeled seated walker). Pertinent negatives include no bladd er incontinence, bowel incontinence, chest pain, fever or tingling. (Burning ) Risk factors include sedentary lifestyle. Treatments tried: PT/HEP (current) with pool therapy, surgery x's2 (last 07/14), inj w/ dr larose (06/15), rest/heat/ice, meds: NSAIDs (celebrex,vol po/gel,motrin), norco, dilaudid, perc., oxy, lyrica, daypro, indometicin, bacof/flexiri/zanflex, biofreeze, ca mpoz, hemp oil, The treatment provided mild relief. The effect of pain on patient's ADLS: Severe Impairment. Past Medical History: Diagnosis Date Arthritis Chronic kidney disease stones Chronic pain disorder Claustrophobia Diabetes mellitus type 2, controlled ([facility]) Fractures Hyperlipidemia Hypertension Joint pain Low back pain Major depression Obesity Osteoarthritis Pulmonary embolism ([facility]) Seasonal allergies Sleep apnea does not use machine Sleep apnea Visual impairment glasses Past Surgical History: Procedure Laterality Date ANKLE SURGERY spurs removed INJECTION BLOCK EPIDURAL CAUDAL STEROID N/A 10/27/2021 Performed by Darren Lackey MD at [facility] INJECTION BLOCK NERVE MEDIAL BRANCH: bilat L 3/4 Bilateral 07/07/2021 Performed by Darren Lackey MD at [facility] INJECTION BLOCK SACROILIAC JOINT Bilateral 04/17/2021 Performed by Darren Lackey MD at [facility] INJECTION SPINE TRANSFORAMINAL: right L 3,4 Nroot Right 09/01/2021 Performed by Darren Lackey MD at [facility] JOINT REPLACEMENT knees- right x2, left x1 KNEE SURGERY rt knee inf removed tka added rods LITHOTRIPSY LUMBAR DISCECTOMY L4-5 Left 10/16/2018 Performed by Suzanne Silverio DO at [facility] STOMACH SURGERY 04/2021 sleeve Allergies [...] Strain: Low Risk (03/28/2022) Received from [facility], [facility] Overall Financial Resource Strain (CARDIA) Difficulty of Paying Living Expenses: Not hard at all Food Insecurity: No Food Insecurity (12/05/2023) Hunger Screening Food Insecurity - Worry: Never True Food Insecurity - Inability: Never True Transportation Needs: Unknown (03/28/2022) Received from [facility], [facility] PRAPARE - Transportation Lack of Transportation (Medical): No Lack of Transportation (Non-Medical): Not on file Physical Activity: Inactive (12/01/2021) Received from [facility], [facility] Exercise Vital Sign Days of Exercise per Week: 0 days Minutes of Exercise per Session: 20 min Stress: No Stress Concern Present (12/01/2021) Received from [facility], [facility] [employer] - Occupational Stress Questionnaire Feeling of Stress : Not at all Social Connections: Moderately Isolated (12/01/2021) Received from [facility], [facility] Social Connection and Isolation Panel [NHANES] Frequency of Communication with Friends and Family: More than three times a week Frequency of Social Gatherings with Friends and Family: Once a week Attends [employer]ology Services: Never Active Member of Clubs or Organizations: No Attends Club or Organization Meetings: Never Marital Status: Interpersonal Safety: Unknown (04/18/2023) Received from [facility] [place] Safety & Environment Fear of Current or Ex-Partner: Not on file Emotionally Abused: Not on file Physically Abused: Not on file Sexually Abused: Not on file Physically or Sexually Abused: Not on file Housing Instability: Unknown (03/28/2022) Received from [facility], [facility] Housing Stability Vital Sign Unable to Pay [...] during discussion, demonstrated appropriate cognitive reasoning and understandingof the medical condition by asking appropriate questions [...] spine and paraspinal musculature. Pain is elicited withflexion, extension, and lateral rotation of the lumbar [...] monitoring for toxicity We do not currently prescribeany controlled substance from this practice. At this [...] SCARLET Agustin 02/13/24 1603 documented in this encounterNewark Hospital10-10-2024 History of Present illness Narrative* SCARLET Agustin - 12/05/2023 9:45 AM EDT [facility] [address] [place] [address] Patient: Sukhdeep Simental Sex: male : 1965 Age: 58 y.o. PCP: DERICK ISABEL MD 12/05/2023 Sukhdeep Simental is here for a(n) follow up for his [facility] work injury. He reports he remains aboutthe same as last visit. Chief Complaint Patient presents with Back Pain HPI: 12/07/2022 L2/3 fusion and revised L3/4, S1 at [facility] per patient. Bilateral SI joint injection on 04/17/2021 with 10% relief, pain is worse. 07/07/21 Bilateral L3/4 Medial branch block with no relief. right L 3, 4 nerve root injection on 09/01/2021 with no relef. Back Pain This is a chronic problem. The current episode started more than 1 year ago (surgery 10/16/18 discectomy and 07/10/2019 fusion in [place]). The problem occurs constantly. The problem is unchanged. The pain is present in the lumbar spine, gluteal and thoracic spine. The quality of the pain is described as aching, stabbing, shooting and cramping (spike pain). The pain radiates to the right thigh (statespain to right thigh is 60% better than previous visit). The pain is at a severity of 8/10 (higher pain level in the mornings (9/10)). The pain is severe. The pain is The same all the time. The symptoms are aggravated by standing, sitting, lying down, bending and twisting (walking). Stiffness is pres ent In the morning. Associated symptoms include leg pain (Right anterior/posterior thigh 60% betterpost surgery), numbness (Right hand d/t positioning from surgery from right elbow to middle, ring and pinky fingers) and weakness (BLE uses wheeled seated walker). Pertinent negatives include no bladd er incontinence, bowel incontinence, chest pain, fever or tingling. Risk factors include sedentary lifestyle. Treatments tried: PT/HEP (current) with pool therapy, surgery x's2 (last 07/14), inj w/ drkumar (06/15), rest/heat/ice, meds: NSAIDs (celebrex,vol po/gel,motrin), norco, dilaudid, perc., oxy, lyrica, daypro, indometicin, bacof/flexiri/zanflex, biofreeze, campoz, hemp oil, The treatment provided mild relief. The effect of pain on patient's ADLS: Severe Impairment. Past Medical History: Diagnosis Date Arthritis Chronic kidney disease stones Chronic pain disorder Claustrophobia Diabetes mellitus type 2, controlled ([facility]) Fractures Hyperlipidemia Hypertension Joint pain Low back pain Major depression Obesity Osteoarthritis Pulmonary embolism (CMS-HCC) Seasonal allergies Sleep apnea does not use machine Sleep apnea Visual impairment glasses Past Surgical History: Procedure Laterality Date ANKLE SURGERY spurs removed INJECTION BLOCK EPIDURAL CAUDAL STEROID N/A 10/27/2021 Performed by Darren Lackey MD at [facility] INJECTION BLOCK NERVE MEDIAL BRANCH: bilat L 3/4 Bilateral 07/07/2021 Performed by Darren Lackey MD at [facility] INJECTION BLOCK SACROILIAC JOINT Bilateral 04/17/2021 Performed by Darren Lackey MD at [facility] INJECTION SPINE TRANSFORAMINAL: right L 3,4 Nroot Right 09/01/2021 Performed by Darren Lackey MD at [facility] JOINT REPLACEMENT knees- right x2, left x1 KNEE SURGERY rt knee inf removed tka added rods LITHOTRIPSY LUMBAR DISCECTOMY L4-5 Left 10/16/2018 Performed by Suzanne Silverio DO at [facility] STOMACH SURGERY 04/2021 sleeve Allergies [...] Strain: Low Risk (03/28/2022) [facility], [facility] Overall Financial Resource Strain (CARDIA) Difficulty of Paying Living Expenses: Not hard at all Food Insecurity: No Food Insecurity (12/05/2023) Hunger Screening Food Insecurity - Worry: Never True Food Insecurity - Inability: Never True Transportation Needs: Unknown (03/28/2022) Received from [facility], [facility] PRAPARE - Transportation Lack of Transportation (Medical): No Lack of Transportation (Non-Medical): Not on file Physical Activity: Inactive (12/01/2021) Received from [facility], [facility] Exercise Vital Sign Days of Exercise per Week: 0 days Minutes of Exercise per Session: 20 min Stress: No Stress Concern Present (12/01/2021) Received from [facility], [facility] [employer] - Occupational Stress Questionnaire Feeling of Stress : Not at all Social Connections: Moderately Isolated (12/01/2021) Received from [facility], [facility] Social Connection and Isolation Panel [NHANES] Frequency of Communication with Friends and Family: More than three times a week Frequency of Social Gatherings with Friends and Family: Once a week Attends Scientology Services: Never Active Member of Clubs or Organizations: No Attends Club or Organization Meetings: Never Marital Status: Interpersonal Safety: Unknown (04/18/2023) Received from [facility] [place] Safety & [place] Fear of Current or Ex-Partner: Not on file Emotionally Abused: Not on file Physically Abused: Not on file Sexually Abused: Not on file Physically or Sexually Abused: Not on file Housing Instability: Unknown (03/28/2022) Received from [facility], [facility] Housing Stability Vital Sign Unable to Pay for Housing in the Last Year: Not on file Number of Places Lived in the Last Year: Not on file In the last 12 months, was there a time when you did not have a steady place to sleep or slept in ashelter (including now)?: No Review of Systems Constitutional: [...] during discussion, demonstrated appropriate cognitive reasoning and understandingof the medical condition by asking appropriate questions [...] spine and paraspinal musculature. Pain is elicited withflexion, extension, and lateral rotation of the lumbar [...] monitoring for toxicity We do not currently prescribeany controlled substance from this practice. At this [...] in the presence of SCARLET AGUSTIN by Dagoberto Rodriguez CNA. Provider Statement: I, SCARLET AGUSTIN, personally performed the services described in the documentation, as scribed by Dagoberto Rodriguez CNA in my presence, and it is both accurate and complete. Dagoberto Rodriguez CNA 12/05/23 1058 SCARLET Agustin 12/12/23 0942 documented in this encounterNew[facility]08-12-2024 Telephone encounter Note* Telephone Encounter - Arianna Little - 10/07/2023 3:28 PM EDT Pt phoned to ensure todays appt was via phone as noted in appt. Pt unable to manage computer. [facility]08-12-2024 Miscellaneous Notes* Telephone Encounter - Arianna Little - 10/07/2023 3:28 PM EDT Pt phoned to ensure todays appt was via phone as noted in appt. Pt unable to manage computer. documented in this encounterSamaritan Hospital08-09-2024 Telephone encounter Note * Telephone Encounter - Arianna Little - 10/04/2023 10:41 AM EDT Laura report XR Lumbar Spine 2-3v scanned to [facility]08-09-2024 Miscellaneous Notes* Telephone Encounter - Shayy Littleanne - 10/04/2023 10:41 AM EDT Laura report XR Lumbar Spine 2-3v scanned to [facility] documented in this encounterSamaritan Hospital06-20-2024 History of Present illness Narrative* SCARLET Agustin - 08/15/2023 11:15 AM EDT [facility] [address] [place] [address] Patient: Sukhdeep Simental Sex: male : 1965 Age: 57 y.o. PCP: DERICK ISABEL MD 08/15/2023 Sukhdeep Simental is here for a(n) follow up for his [facility] work injury. He reports he has pain higher than before surgery. Chief Complaint Patient presents with Back Pain HPI: 12/07/2022 L2/3 fusion and revised L3/4, S1 at [facility] per patient. Bilateral SI joint injection on 04/17/2021 with 10% relief, pain is worse. 07/07/21 Bilateral L3/4 Medial branch block with no relief. right L 3, 4 nerve root injection on 09/01/2021 with no relef. Back Pain This is a chronic problem. The current episode started more than 1 year ago (surgery 10/16/18 discectomy and 07/10/2019 fusion in [place]). The problem occurs constantly. The problem has been gradually worsening since onset. The pain is present in the lumbar spine and gluteal. The quality of the pain isdescribed as aching, stabbing, shooting and cramping (spike pain, twing pain). The pain radiates tothe right thigh (across back, posterior below buttocks [...] tried: PT/HEP (current) with pool therapy, surgery x's2(last 07/14), inj w/ dr larose (06/15), rest/heat/ice, meds: NSAIDs (celebrex,vol po/gel,motrin), norco, dilaudid, perc., oxy, lyrica, daypro, indometicin, bacof/flexiri/zanflex, biofreeze, campoz, hempoil. The treatment provided mild relief. The effect of pain on patient's ADLS: Severe Impairment. Past Medical History: Diagnosis Date Arthritis Chronic kidney disease stones Chronic pain disorder Claustrophobia Diabetes mellitus type 2, controlled ([facility]) Fractures Hyperlipidemia Hypertension Joint pain Low back pain Major depression Obesity Osteoarthritis Pulmonary embolism ([facility]) Seasonal allergies Sleep apnea does not use machine Sleep apnea Visual impairment glasses Past Surgical History: Procedure Laterality Date ANKLE SURGERY spurs removed INJECTION BLOCK EPIDURAL CAUDAL STEROID N/A 10/27/2021 Performed by Darren Lackey MD at [facility] INJECTION BLOCK NERVE MEDIAL BRANCH: bilat L 3/4 Bilateral 07/07/2021 Performed by Darren Lackey MD at [facility] INJECTION BLOCK SACROILIAC JOINT Bilateral 04/17/2021 Performed by Darren Lackey MD at [facility] INJECTION SPINE TRANSFORAMINAL: right L 3,4 Nroot Right 09/01/2021 Performed by Darren Lackey MD at [facility] JOINT REPLACEMENT knees- right x2, left x1 KNEE SURGERY rt knee inf removed tka added rods LITHOTRIPSY LUMBAR DISCECTOMY L4-5 Left 10/16/2018 Performed by Suzanne Silverio DO at [facility] STOMACH SURGERY 04/2021 sleeve Allergies Allergen [...] Strain: Low Risk (03/28/2022) Received from [facility], [facility] Overall Financial Resource Strain (CARDIA) Difficulty of Paying Living Expenses: Not hard at all Food Insecurity: No Food Insecurity (08/15/2023) Hunger Screening Food Insecurity - Worry: Never True Food Insecurity - Inability: Never True Transportation Needs: Unknown (03/28/2022) Received from [facility], [facility] PRAPARE - Transportation Lack of Transportation (Medical): No Lack of Transportation (Non-Medical): Not on file Physical Activity: Inactive (12/01/2021) Received from [facility], [facility] Exercise Vital Sign Days of Exercise per Week: 0 days Minutes of Exercise per Session: 20 min Stress: No Stress Concern Present (12/01/2021) Received from [facility], [facility] [employer] - Occupational Stress Questionnaire Feeling of Stress : Not at all Social Connections: Moderately Isolated (12/01/2021) Received from [facility], [facility] Social Connection and Isolation Panel [NHANES] Frequency of Communication with Friends and Family: More than three times a week Frequency of Social Gatherings with Friends and Family: Once a week Attends Scientology Services: Never Active Member of Clubs or Organizations: No Attends Club or Organization Meetings: Never Marital Status: Interpersonal Safety: Unknown (04/18/2023) Received from [facility] [place] Safety & [place] Fear of Current or Ex-Partner: Not on file Emotionally Abused: Not on file Physically Abused: Not on file Sexually Abused: Not on file Physically or Sexually Abused: Not on file Housing Instability: Unknown (03/28/2022) Received from [facility], [facility] Housing Stability Vital Sign Unable to Pay for Housing in the Last Year: Not on file Number of Places Lived in the Last Year: Not on file In the last 12 months, was there a time when you did not have a steady place to sleep or slept in ashelter (including now)?: No Review of Systems Constitutional: [...] during discussion, demonstrated appropriate cognitive reasoning and understandingof the medical condition by asking appropriate questions [...] spine and paraspinal musculature. Pain is elicited withflexion, extension, and lateral rotation of the lumbar [...] in the presence of SCARLET AGUSTIN by Dagoberto Rodriguez CNA. Provider Statement: I, SCARLET AGUSTIN, personally performed the services described in the documentation, as scribed by Dagoberto Rodriguez CNA in my presence, and it is both accurate and complete. Dagoberto Rodriguez CNA 08/15/23 1228 SCARLET Agustin 08/15/23 1311 documented in this encounterNewark Hospital06-04-2024 Telephone encounter Note* Telephone Encounter - Riddhi Goss APRN.[facility] - 07/30/2023 3:25 PM EDT Called Sukhdeep, no answer, left VM [facility] Work Phone: [phone]) 862-590206-04-2024 Miscellaneous Notes* Telephone Encounter - Riddhi Goss APRN.CNP - 07/30/2023 3:25 PM EDT Called Sukhdeep, no answer, left VM * Telephone Encounter - Ekaterina Rondon - 07/30/2023 1:06 PM EDT Have sent XR Lumbar order to [facility] fax # [phone] as requested from patient. * Telephone Encounter - Arianna Little - 07/30/2023 11:45 AM EDT Pt phoned regarding upcoming visit 10/06 [facility] comp appt. Pt unable to manage virtual visit asking for telephone visit. Pt asking how far in advance to do X-Ray. Pt will have X-Ray done locally at [facility]. Please call and advise Pt phone # [phone] documented in this encounterSamaritan Hospital06-04-2024 Telephone encounter Note * Telephone Encounter - Ekaterina Rondon - 07/30/2023 1:06 PM EDT Have sent XR Lumbar order to [facility] fax # [phone] as requested from patient. [facility]06-04-2024 Telephone encounter Note* Telephone Encounter - Arianna Little - 07/30/2023 11:45 AM EDT Pt phoned regarding upcoming visit 10/06 [facility] comp appt. Pt unable to manage virtual visit asking for telephone visit. Pt asking how far in advance to do X-Ray. Pt will have X-Ray done locally at [facility]. Please call and advise Pt phone # [phone] [facility]05-31-2024 Telephone encounter Note* Telephone Encounter - Juan Pablo Nova RN - 07/26/2023 10:54 AM EDT Office note faxed. Faxed verification received. [facility]05-31-2024 Miscellaneous Notes* Telephone Encounter - Juan Pablo Nova RN - 07/26/2023 10:54 AM EDT Office note faxed. Faxed verification received. * Telephone Encounter - Juan Pablo Nova RN - 07/23/2023 10:08 AM EDT Printed for review. * Telephone Encounter - Brenda Alex - 07/23/2023 9:37 AM EDT Received request from [employer] needing more info, in epic for review. documented in this encounterSamaritan Hospital05-28-2024 Telephone encounter Note * Telephone Encounter - Juan Pablo Nova RN - 07/23/2023 10:08 AM EDT Printed for review. [facility]-28-20[facility] Telephone encounter Note* Telephone Encounter - SchererBrenda Griffith - 07/23/2023 9:37 AM EDT Received request from [employer] needing more info, in [place] for review. [facility]03-13-2024 History of Present illness Narrative* Edd Mathew MD - 05/08/2023 4:00 PM EDT SPINE SURGERY FOLLOW UP This is a virtual visit using Audio Only Visit. It required patient-provider interaction for the medical decision making as documented below. I have communicated my name and active licensure. The patient's identity and physical location wereverified at the time of this visit. Either the patient or their legal client representative has been informed of the risks and benefits of -- and alternatives to -- treatment through a remote evaluation andconsents to proceed with the evaluation remotely. SERVICE [...] licensure. The patient's identity and physical location wereverified at the time of this visit. Either the patient or their legal client representative has been informed of the risks and benefits of -- and alternatives to -- treatment through a remote evaluation andconsents to proceed with the evaluation remotely. The documentation for this note was completed by Hannah Ochoa, AA Student acting as scribe for Edd Mathew MD. May 08, 2023 4:33 PM. SIGNATURE: Edd Mathew MD PATIENT NAME: Sukhdeep Simental DATE: May 08, 2023 TIME: 4:00 PM PAGER: documented in this encounterSamaritan Hospital03-13-2024 Miscellaneous Notes* Telephone Encounter - Cherelle Oleary RN - 05/08/2023 2:30 PM EDT A letter was received from the law office of Barbara Loredo. The purpose of the letter was to see if provider would like to amend patient's 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 The information was reviewed by Nadiya Flynn PA-C and he would not like to amend the [facility] claim to allow the above mentioned condition. Call placed to the office of Barbara Loredo to inform him of provider's decision. No answer at the time call was made. Message left. documented in this encounterMercy Health Perry[facility] HospitalMovimento Group [facility] [id number] Telephone encounter Note* Telephone Encounter - Cherelle Oleary RN - 05/08/2023 2:30 PM EDT A letter was received from the law office of Barbara Loredo. The purpose of the letter was to see if provider would like to amend patient's 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 The information was reviewed by Nadiya Flynn PA-C and he would not like to amend the [facility] claim to allow the above mentioned condition. Call placed to the office of Barbara Loredo to inform him of provider's decision. No answer at the time call was made. Message left. [facility] [id number] Miscellaneous Notes* Telephone Encounter - Cherelle Oleary RN - 05/07/2023 9:10 AM EDT Call received from Hannah, patient's spring encaser. She called as patient's MEDCO-14 is expiring soon. Hannah is informed that patient called about this and an updated [employer]-14 was completed and faxed on 05/03/2023. Hannah states she is his spring encaser and would like information sent to her at - sj[employer]. She asked what the form states. She is informed that there are no changes . Sheasks if patient is able to return to work. She is informed again that [employer]CO 14 indicates No Changes and office restrictions ordered by this office have not changed. Hannah is reminded that patient had surgery. Hannah informed that new dates for restrictions will be 05/15/2023-11/14/2023. documented in this encounterMercy Health Perrysburg HospitalMovimento Group [facility] [id number] Telephone encounter Note* Telephone Encounter - Cherelle Oleary RN - 05/07/2023 9:10 AM EDT Call received from Hannah, patient's spring encaser. She called as patient's MEDCO-14 is expiring soon. Hannah is informed that patient called about this and an updated [employer]-14 was completed and faxed on 05/03/2023. Hannah states she is his spring encaser and would like information sent to her at - done. She asked what the form states. She is informed that there are no changes . Sheasks if patient is able to return to work. She is informed again that [employer]CO 14 indicates No Changes and office restrictions ordered by this office have not changed. Hannah is reminded that patient had surgery. Hannah informed that new dates for restrictions will be 05/15/2023-11/14/2023. [facility]02-22-2024 Miscellaneous Notes* Telephone Encounter - Juan Pablo Nova RN - 04/18/2023 9:24 AM EST Signed form faxed to number requested. Faxed verification received. * Telephone Encounter - Juan Pablo Nova RN - 04/18/2023 8:42 AM EST Printed for review and signature. * Telephone Encounter - Moriah Ferguson - 04/10/2023 2:11 PM EST Received [facility] Certification from [facility] Scanned to chart for provider signature. documented in this encounterSamaritan Hospital02-20-2024 Miscellaneous Notes* Telephone Encounter - Moriah Ferguson - 04/16/2023 1:23 PM EST Received imaging disc by mail from [facility]. Disc contains CT Lumbar spine done on 04/03/23. Will place in nurse folder in [address]. documented in this encounterSamaritan Hospital02-13-2024 Miscellaneous Notes* Telephone Encounter - Robson Lazo RN - 04/09/2023 12:34 PM EST Called & spoke with Sukhdeep Asked him to obtain imaging disc & send to our office. * Telephone Encounter - Brittany Rubio PA-C - 04/09/2023 12:22 PM EST Will require images to be uploaded to assess for bony fusion at previous surgical site and adjacentsegment disease. * Telephone Encounter - Brenda Alex - 04/09/2023 10:[address] Lumbar Spine Report from [facility], in epic to review. documented in this encounterSamaritan Hospital12-21-2023 History of Present illness Narrative* SCARLET Agustin - 02/14/2023 11:00 AM EST [facility] [address] [place] [address] Patient: Sukhdeep Simental Sex: male : 1965 Age: 57 y.o. PCP: DERICK ISABEL MD 02/14/2023 Sukhdeep Simental is here for a 6 month follow up for his [facility] work injury. Chief Complaint Patient presents with Back Pain HPI: 12/07/2022 L2/3 fusion and revised L3/4, S1 at [facility] per patient. Bilateral SI joint injection on 04/17/2021 with 10% relief, pain is worse. 07/07/21 Bilateral L3/4 Medial branch block with no relief. right L 3, 4 nerve root injection on 09/01/2021 with no relef. Back Pain This is a chronic problem. The current episode started more than 1 year ago (surgery 10/16/18 discectomy and 07/10/2019 fusion in [place] The problem occurs constantly. The problem has been gradually worsening since onset. The pain is present in the lumbar spine and gluteal. The quality of the pain isdescribed as aching, stabbing and shooting (throbbing, sharp [...] surgery 2 months ago. Going to PT forthis) and weakness (BLE uses wheeled seated walker). [...] Claustrophobia Diabetes mellitus type 2, controlled ([facility]) Fractures Hyperlipidemia Hypertension Joint pain Low back pain Major depression Obesity Osteoarthritis Pulmonary embolism ([facility]) Seasonal allergies Sleep apnea does not use machine Sleep apnea Visual impairment glasses Past Surgical History: Procedure Laterality Date ANKLE SURGERY spurs removed INJECTION BLOCK EPIDURAL CAUDAL STEROID N/A 10/27/2021 Performed by Darren Lackey MD at [facility] INJECTION BLOCK NERVE MEDIAL BRANCH: bilat L 3/4 Bilateral 07/07/2021 Performed by Darren Lackey MD at [facility] BLOCK SACROILIAC JOINT Bilateral 04/17/2021 Performed by Darren Lackey MD at [facility] SPINE TRANSFORAMINAL: right L 3,4 Nroot Right 09/01/2021 Performed by Darren Lackey MD at [facility] JOINT REPLACEMENT knees- right x2, left x1 KNEE SURGERY rt knee inf removed tka added rods LITHOTRIPSY LUMBAR DISCECTOMY L4-5 Left 10/16/2018 Performed by Suzanne Silverio DO at [facility] STOMACH SURGERY 04/2021 sleeve Allergies [...] during discussion, demonstrated appropriate cognitive reasoning and understandingof the medical condition by asking appropriate questions [...] spine and paraspinal musculature. Pain is elicited withflexion, extension, and lateral rotation of the lumbar [...] monitoring for toxicity We do not currently prescribeany controlled substance from this practice. At this [...] in the presence of SCARLET AGUSTIN by Dagoberto Rodriguez CNA. Provider Statement: I, SCARLET AGUSTIN, personally performed the services described in the documentation, as scribed by Dagoberto Rodriguez CNA in my presence, and it is both accurate and complete. Dagoberto Rodriguez CNA 02/14/23 1237 Dagoberto Rodriguez CNA 02/14/23 1254 SCARLET Agustin 02/21/23 1158 documented in this encounterNewark Hospital12-14-2023 Miscellaneous Notes* Telephone Encounter - Juan Pablo Nova RN - 02/07/2023 3:05 PM EST C9 for physical therapy faxed to [facility]. Faxed verification received. documented in this encounterSamaritan Hospital12-14-2023 History of Present illness Narrative* Riddhi Goss, FREDA.TOOL MECHANIC - 02/07/2023 2:38 PM EST SPINE SURGERY FOLLOW UP This is an [...] which included preparing to see the patient, [id number] patient care, completing clinical documentation, obtaining and/or reviewing separately obtained history, performing a medically appropriate examination, counseling and educating the pat ient/family/caregiver, and ordering medications, tests, or procedures. SIGNATURE: Riddhi Goss APRN.CNP PATIENT NAME: Sukhdeep Simental DATE: February 07, 2023 TIME: 2:39 PM PAGER: documented in this encounterSam[facility]12-[facility]23 Hospital Discharge instructions Patient Education 02/04/2023 10:26:49 [...] include: ?8 oz (237 mL) of milk, blndrtf-yebbzhzhgjqe-ahnpe milk, and calcium- fortifiedfruit juice. Calcium-fortified means that calcium has been [...] the table and allow each person to addtheir own salt to taste. Use vegetable protein, such as beans, textured vegetable protein (TVP), or tofu, instead of meat inpasta, casseroles, and soups. Meal planning Eat less [...] portion sizes. For most meat and fish, oneserving is about the size of the palm [...] potatoes, and Nepalese chard. ?Peanuts. ?Potato chips, finnish fries, and baked potatoes with skin on. ?Nuts and nut products. ?Chocolate. If you regularly take a diuretic medicine, make sure to eat at least 1 or 2 servings of fruits or vegetables that are high in potassium each day. These include: ?Avocado. ?Banana. ?[place], prune, carrot, or tomato juice. ?Baked potato. [...] magnesium, fish oil, or vitamin B6. Take yzor-xiw-snonnjl and prescription medicines only as told by [...] Casseroles. Pizza. Lasagna. Frozen meals. Potato chips. Chinese fries. The items listed above may not be a complete list of foods and beverages you should limit. Contact a dietitian for more information. What foods should I avoid? Talk to your dietitian about specific foods you should avoid based on the type of kidney stones youhave and your overall health. Fruits Grapefruit. The item listed above may not be a complete list of foods and beverages you should avoid. Contact adietitian for more information. Summary Kidney stones are [...] provider. Document Revised: 05/24/2022 Document Reviewed: 05/24/2022 [employer] Patient Education 2022 [employer]. Follow Up Care 07/27/2022 14:20:34 With:LIDIA JACOBS, Cecelia Jj, URL Address: [facility] [address] , [place] [address]- When:Within 1 Year(s) Comments:w/CT AP w/o Con [facility] 11-29-2023 Miscellaneous Notes* Telephone Encounter - Robson De Jesus - 01/23/2023 10:21 AM EST Received fax from [employer]. Scanned into [employer]. Also received a RTW from [employer]. Scanned into [employer] as well. documented in this encounterSamaritan Hospital10-27-2023 Miscellaneous Notes* Telephone Encounter - Moriah Ferguson - 12/21/2022 9:25 AM EDT Patient called with complaints of [facility] [place] not allowing him to greens picker the pain medication that was sent [...] patient with an update. documented in this encounterSamaritan Hospital10-26-2023 History of Present illness Narrative* Singh Morgan PA-C - 12/20/2022 2:27 PM EDT SPINE SURGERY FOLLOW UP This is an [...] which included preparing to see the patient, kydz-ni-jttr patient care, completing clinical documentation, obtaining and/or reviewing separately obtained history, performing a medically appropriate examination, counseling and educating the pat ient/family/caregiver, and ordering medications, tests, or procedures. SIGNATURE: Singh Morgan PA-C PATIENT NAME: Sukhdeep Simental DATE: December 20, 2022 TIME: 2:58 PM PAGER: documented in this encounterSamaritan Hospital10-23-2023 Miscellaneous Notes* Telephone Encounter - Abby Hernandez RN - 12/17/2022 3:47 PM EDT Forms completed and signed by provider. Faxed to number provided and and Sukhdeep notified via voice mail, as requested. Scanned into [employer] * Telephone Encounter - Juan Pablo Nova RN - 12/14/2022 2:58 PM EDT Form completed. Awaiting signature. * Telephone Encounter - Juan Pablo Nova RN - 12/14/2022 2:36 PM EDT Printed for review. * Telephone Encounter - Moriah Ferguson - 12/14/2022 2:28 PM EDT Received FMLA form by fax from patient's . Scanned to patient's chart for review and completion. documented in this encounterSamaritan Hospital10-19-2023 Miscellaneous Notes* Telephone Encounter - Jeremy Schrader PA-C - 12/13/2022 12:20 PM EDT Spoke with patient at 12:22 PM on [...] weakness to give our office a carly. Jeremy Schrader PA-C * Telephone Encounter - Eva Galdamez - 12/13/2022 12:15 PM EDT Patient at [phone] is requesting a call back. He had back surgery on 12-07. He states for the past 2 days his right ring and little finger has been numb. documented in this encounterSamaritan Hospital10-18-2023 Miscellaneous Notes* Telephone Encounter - Juan Pablo Nova RN - 12/12/2022 4:39 PM EDT Spoke with pharmacy and was informed that medication is approved. No prior authorization needed. * Telephone Encounter - Ekaterina Rondon - 12/12/2022 11:07 AM EDT Patient called stating pharmacy needs a prior authorization for oxycodone 15 mg. * Telephone Encounter - Brittany Rubio PA-C - 12/12/2022 9:39 AM EDT I called the pharmacy on 12/12/2022 at 9:40 AM. Insurance will not pay for the frequency of medication written. They will cover q12h. Prescription changed to oxycodone 15 mg 12h. * Telephone Encounter - Brenda Alex - 12/12/2022 9:32 AM EDT [facility] [address] [place] [address] - [address] - [phone] Pharmacist at [facility] wanted to inform the office that this patient already takes Percocet 10-325 every 6 hours, picked it up 13 days ago. They tried running the Percocet but his insurance will not cover both. Please call them back with new instructions. documented in this encounterSamaritan Hospital10-17-2023 NoteHNO ID: [id number] Author: Lulu Oviedo MD Service: General Internal [...] EC 10 mg tab( (more content not included)...[facility] 12-10-2022 NoteHNO ID: [id number] Author: Lulu Oviedo MD Service: General Internal Medicine Author Type: Physician Type: Progress Notes Filed: 12/10/2022 1:03 PM Note Text: PROGRESS NOTE - INTERNAL MEDICINE PATIENT NAME: Sukhdeep Simental SERVICE DATE: December 10, 2022 SERVICE TIME: 1:01 PM PCP: Derick Isabel MD ADMITTING PHYSICIAN: Edd Mathew MD MD INTERVAL HISTORY OF PRESENT ILLNESS: pt seen denied cp/ sob . Pain 5/10 / no weakness REVIEW OF SYSTEMS: GENERAL: [...] dextrose 10% iv bolu (more content not included)...[facility] HospitalBkuwraiz83-40-1756 NoteHNO ID: [id number] Author: Alyssa Tim APRN.TOOL MECHANIC Service: Neurosurgery Author Type: Nurse Practitioner Type: [...] is currently not well controlled despite Dilaudid DELIVERY DRIVER and Toradol. He denies new weakness, [...] mg ORAL q 8 H Archual, Alyssa, OIL WELL LOGGER.TOOL MECHANIC 1,000 mg at 12/09/22 0559 aluminum-magnesium hydroxide-simethicone 200-200-20 mg/5 mL 30 mL 30 mL ORAL q 6 H PRN Archual, Alyssa, OIL WELL LOGGER.TOOL MECHANIC bisacodyl EC 10 mg tab(s) (DULCOLAX) 10 mg ORAL DAILY PRN Archual, Alyssa, OIL WELL LOGGER.TOOL MECHANIC dextrose 40 % 15 g 15 g ORAL PRN Archual, Alyssa, OIL WELL LOGGER.TOOL MECHANIC Or glucagon 1 mg injection 1 mg INTRAMUSCULAR PRN Archual, Alyssa, OIL WELL LOGGER.TOOL MECHANIC Or dextrose 10% iv bolus 12.5 g INTRAVENOUS PRN Archual, Alyssa, OIL WELL LOGGER.TOOL MECHANIC docusate sodium 100 mg cap(s) (COLACE) 100 mg ORAL BID Edd Mathew MD 100 mg at 12/09/22 0821 doxazosin 4 mg tab(s) (CARDURA) 4 mg ORAL DAILY Edd Mathew MD 4 mg at 12/09/22 0821 fentaNYL DELIVERY DRIVER 20 mcg/mL in NaCl 0.9% 100 mL (SUBLIMAZE) INTRAVENOUS CONTINUOUS Archual, Alyssa, OIL WELL LOGGER.TOOL MECHANIC ferrous sulfate 325 mg tab(s) 325 mg ORAL DAILY Archual, Alyssa, OIL WELL LOGGER.TOOL MECHANIC 325 mg at 12/09/22 0821 heparin 5,000 Units injection 5,000 Units SUBCUTANEOUS q 12 H Archual, Alyssa, OIL WELL LOGGER.TOOL MECHANIC 5,000 Units at 12/09/22 0821 hydrOXYzine HCl 25 mg tab(s) (ATARAX) 25 mg ORAL q 6 H PRN Archual, Alyssa, OIL WELL LOGGER.TOOL MECHANIC insulin lispro injection (rapid acting) (HumaLOG) SUBCUTANEOUS w MEALS AND HS Archual, Alyssa, OIL WELL LOGGER.TOOL MECHANIC 1 Units at 12/07/22 1803 lactated ringers iv infusion 75 mL/hr INTRAVENOUS CONTINUOUS Edd Mathew MD 75 mL/hr at 12/09/22 1018 75 mL/hr at 12/09/22 1018 methocarbamol 750 mg tab(s) (ROBAXIN) 750 mg ORAL QID Archual, Alyssa, OIL WELL LOGGER.TOOL MECHANIC NaCl 0.9% iv flush bag 20 mL INTRAVENOUS PRN Edd Mathew MD naloxone 0.1 mg injection (NARCAN) 0.1 mg INTRAVENOUS q 2 MIN PRN Archual, Alyssa, OIL WELL LOGGER.TOOL MECHANIC omeprazole 20 mg cap(s) (PriLOSEC) 20 mg [...] packet 17 g ORAL DAILY Archual, Alyssa, OIL WELL LOGGER.TOOL MECHANIC 17 g at 12/09/22 0821 simvastatin 10 mg tab(s) (ZOCOR) 10 mg ORAL AT BEDTIME Edd Mathew MD 10 mg at 12/08/222019 tamsulosin 0.4 mg cap(s) (FLOMAX) 0.4 mg ORAL DAILY Edd Mathew MD 0.4 mg at 12/09/22820 traZODone 150 mg tab(s) (DESYREL) 150 mg ORAL AT BEDTIME Archual, Alyssa, OIL WELL LOGGER.TOOL MECHANIC 150 mg at 12/08/222019 valsartan 80 mg tab(s) (DIOVAN) 80 mg ORAL DAILY Archual, Alyssa, OIL WELL LOGGER.TOOL MECHANIC 80 mg at 12/09/22 0822 ASSESSMENT AND [...] pain control, Pain management consulted, started Fentanyl DELIVERY DRIVER today due to continued uncontrolled pain, Robaxin and Tylenol scheduled, no further Toradol due to CKD 3. -Check postop lumbar XR today -Medicine consult for post-operative medical management -Discharge planning, anticipate discharge home in 1-2 more days. Plan of care discussed with Dr. Mathew via phone. Medication and Non-Pharmacologic VTE Prophylaxis/Anticoagulants 10/25/21 1215 vte pharmacologic prophylaxis contraindicated ([place],oh) (more content not included)...[facility] HospitalHckckptm38-08-2735 NoteHNO ID: [id number] Author: Alyssa Tim APRN.TOOL MECHANIC Service: Neurosurgery Author Type: Nurse Practitioner Type: [...] on POD #2 -Post-operative pain control, Dilaudid DELIVERY DRIVER discontinued. Continue Tylenol, Toradol IV, and Robaxin PRN. Start oxycodone every 3 hours PRN and Dilaudid IV PRN. -Check postop XR tomorrow. -Medicine consult for post-operative medical management -Discharge planning, anticipate discharge home in 1-2 more days. Plan of care discussed with Dr Hopper via phone. Medication and Non-Pharmacologic VTE Prophylaxis/Anticoagulants 10/25/21 1215 vte pharmacologic prophylaxis contraindicated (ms,de) 10/25/21 1215 pneumatic compression stockings ([place]) 10/25/21 1215 activity - mobilize patient ([place]) VTE Prophylaxis: VTE prophylaxis appropriate SIGNATURE: Alyssa Tim APRN.TOOL MECHANIC DATE: December 08, 2022 TIME: 1:50 [facility]10-14-2023 NoteHNO ID: [id number] Author: Note, Interface Service: ? Author Type: ? Type: Progress Notes Filed: 12/08/2022 3:59 AM Note Text: Epic Scheduled Downtime: 12/08/2022 1:00:00 AM to 12/08/2022 1:28:[address] 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 Nov,hronic kidney disease, stage III (moderate) (ICD-10 - N18.30)He has a CKD likely due to the [...] but unremarkable SPEP, serum and urine immunofixation Nov,en hy kid w cr kid I-IV (ICD-10 - I12.9)Blood pressure is controlled. He appears to be euvolemic. Continue current medication irbesartan and Bumex. Nov,Secondary hyperparathyroidism (ICD-10 - N25.81)MBD parameters including calcium, phosphorus, PTH and vitamin D are within the goal. Nov,Microscopic hematuria (ICD-10 - R31.29)He has intermittent microscopic hematuria likely due to the nephrolithiasis. Nov,Nephrolithiasis (ICD-10 - N20.0)Continue follow-up with urology. 12 Nov, 2022Hyperuricemia (ICD-10 - E79.0)He has hyperuricemia due to the CKD but denies any recent gout flare. We will continue to monitor without any medications. Nov,OtherHemoglobin is within the goal but has adequate iron stores. Stop Oral Iron [employer] Other [id number] History of Past illness Narrative* Problem Noted DateDiagnosed DateResolved DateSecondary yoixujrejxlomrsgzns01/27/2023orneal edema, czyoniayxsj40Herpes simplex naeagsefezkjd443documented as of this encounter (statuses as of 12/13/2022) [facility] of Past illness Narrative* ProblemNoted Date Diagnosed DateResolved DateSecondary lwvtzggqroorawvpmbb92/27/202309/27/2023 11/21/2022orneal edema, xjlelnyexcd76Herpes simplex axjfyqshgsveo303documented as of this encounter (statuses as of 12/18/2022) [facility] History of Past illness Narrative* ProblemNoted Date Diagnosed DateResolved DateSecondary kvigehicywjpqkyfhnk41/27/202309/27/2023 11/21/2022orneal edema, muaekdvurjj07Herpes simplex ninrupatdqypx723documented as of this encounter (statuses as of 12/21/2022) [facility] of Past illness Narrative* ProblemNoted Date Diagnosed DateResolved DateSecondary nacwdjkgiaqzocyohiv34/27/202309/27/2023 11/21/2022orneal edema, hibuoocdlxc57Herpes simplex wmcejucwjjpfi953documented as of this encounter (statuses as of 12/21/2022) [facility] of Past illness Narrative* ProblemNoted Date Diagnosed DateResolved DateSecondary wtblznjxesxzpjcpbsj31/27/202309/27/2023 3Corneal edema, ibgrhqoijos09Herpes simplex ziqwnzblvflks573documented as of this encounter (statuses as of 01/24/2023) [place] [address]-27-2023 History of Past illness Narrative* ProblemNoted Date Diagnosed DateResolved DateSecondary anqsvrttxselippljgr43/27/202309/27/2023 3Corneal edema, fdczcagzdmb20Herpes simplex xzxmhvwjvknvk343documented as of this encounter (statuses as of 02/08/2023) [facility] of Past illness Narrative* ProblemNoted Date Diagnosed DateResolved DateSecondary nstltdxnhfqapfbemkm61/27/202309/27/2023 3Corneal edema, gxjvtsqqsbg33Herpes simplex lzzemsomqtdnu693documented as of this encounter (statuses as of 02/09/2023) [address]27-2023 History of Past illness Narrative* ProblemNoted Date Diagnosed DateResolved DateSecondary molnhosanojbfrcpozm18/27/202309/27/2023 3Corneal edema, havrnwxaxgq26Herpes simplex juccshchlwdcg483documented as of this encounter (statuses as of 04/09/2023) [facility] of Past illness Narrative* ProblemNoted Date Diagnosed DateResolved DateSecondary occuzunkezxldysjlbl69/27/202309/27/2023 3Corneal edema, tyeblbimkkt51Herpes simplex evswofcfiubya72/15/3documented as of this encounter (statuses as of 04/18/2023) [facility] of Past illness Narrative* ProblemNoted Date Diagnosed DateResolved DateSecondary afeltzxqpvpjmwxumkb96/27/202309/27/2023 3Corneal edema, sqvfwxpnttp05Herpes simplex vrqhefwvkipnq613documented as of this encounter (statuses as of 05/13/2023) [facility] of Past illness Narrative* ProblemNoted Date Diagnosed DateResolved DateSecondary mhofnsianswkqvsezyr84/27/3Corneal edema, xmdrwqenitg00Herpes simplex qoynsuodoqthq813documented as of this encounter (statuses as of 06/06/2023) [facility]20[facility] Nurse Note* Juan Pablo Nova RN - 11/05/2022 3:11 PM EDT Neuro SPINE CARE COORDINATION PRE-OP VISIT Met with patient and spouse for pre op education. Given both written and verbal instructions re : Skin prep, wound care, pain management and post op restrictions. Provided to patient: [facility] Surgery Guide, skin prep supplies, Spine Surgery Pre/post op education packet. Yes Reviewed with patient to report to the registration desk for surgery? Yes. Reviewed with the patient that a surgery claims customer service representative will call the working day [...] lab work : [facility] completed at [facility]. Questions answered. Patient verbalizes understanding via teach back. Additional comments : Informed to call with any questions or concerns. Juan Pablo Nova RN documented in this encounterSamaritan Hospital2023 History of Present illness Narrative* Edd Mathew MD - 11/05/2022 2:20 PM EDT SPINE SURGERY NEW PATIENT This is an in-person visit. PCP: Derick Isabel MD REFERRING PROVIDER: Jason Miller SUBJECTIVE [...] TIME: 2:20 PM PAGER: documented in this encounterSamaritan Hospital08-22-2023 NoteHNO ID: [id number] Author: Sonya Wilhelm APRN.TOOL MECHANIC Service: ? Author Type: Nurse Practitioner Type: Progress Notes Filed: 10/16/2022 4:03 PM Note Text: Per Triage: Sukhdeep Simental is a 57 year old male that requests evaluation of lumbar spine. Per review, they have symptoms of LBP Hip pain Leg pain (R) Numbness, Tingling Toes Trouble lifting leg (R) Prev surgery yes L4-S1 fusion in [facility] CMT: Injection Muscle relaxants, Zanaflex Studies [...] schedule with first available lumbar revision surgeon. [facility]08-22-2023 History of Present illness Narrative* Sonya Wilhelm APRN.TOOL MECHANIC - 10/16/2022 3:51 PM EDT Per Triage: Sukhdeep Simental is a 57 year old male that requests evaluation of lumbar spine. Per review, they have symptoms of LBP Hip pain Leg pain (R) Numbness, Tingling Toes Trouble lifting leg (R) Prev surgery yes L4-S1 fusion in [facility] CMT: Injection Muscle relaxants, Zanaflex Studies [...] available lumbar revision surgeon. * Adonis Lopez - 09/20/2022 1:17 PM EDT Patient name: Sukhdeep Simental Are you being referred by a Center for Spine Health Provider or Pain Management Provider at [facility]? No If answer is YES please [...] the MRI/CT/myelogram was completed: [facility] Address: [address] [place] [address] MRI/CT/myelogram viewable in Epic: No If not, please provide [phone] to fax in imaging reports for review. [...] physical therapy was completed Injection [facility] Address: [address] [place] [address] Have you tried any other kinds of [...] of where the surgery was completed: 2019 [facility] Address: [address] [place] [address] Additional Comments [phone] (Home Phone) documented in this encounterSamaritan Hospital07-27-2023 NoteHNO ID: [id number] Author: Adonis Lopez Service: ? Author Type: ? Type: Progress Notes Filed: 10/16/2022 4:03 PM Note Text: Patient name: Sukhdeep Simental Are you being referred by a [place] for Spine Health Provider or Pain Management Provider at [facility]? No If answer is YES please [...] the MRI/CT/myelogram was completed: [facility] Address: [address] [place] [address] MRI/CT/myelogram viewable in Epic: No If not, please provide [phone] to fax in imaging reports for review. 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 May,hronic kidney disease, stage III (moderate) (ICD-10 - N18.30)He has a CKD likely due to the [...] to slow down the progression of CKD. May,en hy kid w cr kid I-IV (ICD-10 - I12.9)Blood pressure is controlled. He appears to be euvolemic. Continue current medication irbesartan and Bumex. May,Secondary hyperparathyroidism (ICD-10 - N25.81)MBD parameters including calcium, phosphorus, PTH and vitamin D are within the goal. May,nemia of renal disease (ICD-10 - D63.1)Hemoglobin is within the goal but has adequate iron stores. He has a mildly elevated free light chain ratio likely due to the CKD but unremarkable SPEP, serum and urine immunofixation May,Microscopic hematuria (ICD-10 - R31.29)He has intermittent microscopic hematuria likely due to the nephrolithiasis. May,Nephrolithiasis (ICD-10 - N20.0)He denies any recent passage of kidney stones. Continue follow-up with urology. May,Hyperuricemia (ICD-10 - E79.0)He has hyperuricemia due to the CKD but denies any recent gout flare. We will continue to monitor without any medications. [employer] Other [id number] Hospital Discharge instructions Patient Education 03/19/2022 08:17:27 [...] include: ?Spinach. ?Rhubarb. ?Beets. ?Potato chips and finnish fries. ?Nuts. If you regularly take a diuretic medicine, make sure to eat at least 1 2 fruits or vegetables high in potassium each day. These include: ?Avocado. ?Banana. ?[place], prune, carrot, or tomato juice. ?Baked potato. [...] Casseroles. Pizza. Lasagna. Frozen meals. Potato chips. Chinese fries. Summary You can reduce your risk [...] 06/08/2011 Document Revised: 06/03/2019 Document Reviewed: 01/22/2017 [employer] Patient Education 2020 [employer]. Follow Up Care 03/15/2022 09:49:40 With:LIDIA JACOBS, Cecelia Jj, URL Address: [facility] [address], [place] [address]- When: Unknown [facility] 01-16-2023 NoteIndication: Renal mass. Comparison: [...] Electronically authenticated by: CITLALI GIRON Date: 2022-03-12 18:03[facility]10-21-2022 Evaluation note* Encounter Date Diagnosis Assessment [...] present. Patient is instructed to continue the levofloxacin,his urine will be cultured for infection, gonorrhea, chlamydia, yeast. [employer] Other 08-31-2022 Evaluation note* Encounter Date [...] I have advised him to avoid NSAIDs. Sep,2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 He currently takes irbesartan for renal protection. I will continue that. Sep,en hy kid w cr kid I-IV (ICD-10 - I12.9)Blood pressure is controlled. He appears to be euvolemic. Continue current medication irbesartan and Bumex. Sep,Hyperkalemia (ICD-10 - E87.5)He had a hyperkalemia likely due to the combination of CKD, spironolactone and irbesartan. His potassium is back to normal after discontinuation of spironolactone. I have advised him low potassium diet and provide information about it. Sep,econdary hyperparathyroidism (ICD-10 - N25.81)Calcium is within normal limit. We will check PTH and vitamin D. Sep,nemia of renal disease (ICD-10 - D63.1)Hemoglobin is within the goal. We will check iron studies B12 and folate level. Also will check thework- up for paraproteinemia due to the CKD and anemia. [employer] Other 04-01-2022 History of Present illness [...] from the original note were not included. [place] [facility] Progress Note Date: 05/26/2021 Patient name: Sukhdeep [...] 2. Ok for d/c from cardiology standpoint. [place] [facility]. [phone] * Octavio Mcclellan DO - 05/25/2021 5:42 [...] RN - 05/25/2021 8:32 AM EDT [facility] Documentation Note Admission Dx: S/P laparoscopic sleeve [...] on an annual basis Tona Foreman RN [place] [facility] * Sonya Ramírez DO - 05/25/2021 6:45 [...] Day of Surgery/Procedure As a patient at [facility] you can expect quality medical and nursing care that is centered on your individual needs. Our goal is to make your surgical experience as comfortableas possible . Directions to the Surgery Center [facility] is located at [address] [place] [address]. Please pull into the Emergency parking lot and stop at the database administrator ojeda. We offer free database administrator service for all our surgery patients, if you choose not to have database administrator parking we have additional parking across the street.You will enter the facility under the blue canopy/walkway following the [facility] sign. Please stop at the administrative assistant receptionist desk where you will be checked in by the staff. If you have any questions please call [phone]. Transportation after your procedure. You will need a friend or family member to drive you home after your procedure. Your assembly line driver must be18 years of age or [...] You may shave your face or neck. Friendship your teeth but do not swallow water. [...] or the day of surgery, please call [phone], or [phone] documented in this [facility] [employer] Phone: [phone]) 103-473603-31-2022 Hospital Discharge instructions* Discharge Instr - KAMARI* Jenny Lentz RN - 05/25/2021 5:44 PM EDT PHYSICIAN SIGNATURE: * Additional Instructions* Jenny Lentz RN - 05/26/2021 Discharge Instructions for Bariatric Surgery You had a Laparoscopic Sleeve Gastrectomy (41771) surgery to treat obesity. Recovery from this [...] scheduled appointment, please call the office at [phone]. Call Your Doctor If Any of the [...] sent through Care Everywhere. * Enoxaparin (Lovenox) (Macedonian) * metoprolol (oral/injection) (Macedonian) * acetaminophen and oxycodone (Macedonian) documented in this [facility] [employer] Phone: [phone]) 730-500403-09-2022 Hospital Discharge instructions* Instructions* Etelvina Ledbetter APRN - CNP - 05/03/2021 Pre-operative Instructions Please arrive at [...] list you provided today, ACCORDING TO YOUR ROCK SINGER, PLEASE HOLD ELIQUIS 3 DAYS PRIOR TO [...] public transportation ALONE is not acceptable. -Your assembly line driver must be 18 years of age [...] Day of Surgery/Procedure As a patient at [facility] you can expect quality medical and nursing care that is centered on your individual needs. Our goal is to make your surgical experience as comfortableas possible . Directions to the Surgery Center [facility] is located at [address] [place] [address]. Please pull into the Emergency/Surgery Center parking lot and stop at the [employer] [facility]. We offer free database administrator service for all our surgery patients, if you choose not to have database administrator parking we have additional parking across the [...] pharmacy bottles in a zip lock bag. Friendship your teeth but do not swallow water. [...] DAY OF your surgery, you may call [phone] documented in this [facility] Work Phone: evaluation + Plan note Future Appointments Appointment Date:07/16/2022 02:45:00 PM Scheduled Provider:Cecelia MURILLO MD Location:[facility] Appointment Type:URO Office Visit [facility] evaluation + Plan note Future Appointments Appointment Date:02/04/2023 09:15:00 AM Scheduled Provider:Cecelia MURILLO MD Location:[facility] Appointment Type:URO Office Visit General Surgery [facility] Evaluation + Plan note Future Appointments Appointment Date:02/03/2024 10:30:00 AM Scheduled Provider:Cec[facility]UR[facility] Office Visit Diagnostic Tests Pending * PSA Total 02/04/23 [facility] evaluation + Plan note Future Appointments Appointment Date:08/13/2025 10:45:00 AM Scheduled Provider:Cecelia MURILLO MD Location:[facility] Appointment Type:URO Office Visit Diagnostic Tests Pending * PSA Total 06/25/25 [facility] evaluation + Plan note Future Appointments Appointment Date:08/13/2025 10:45:00 AM Scheduled Provider:Cecelia MURILLO MD Location:[facility] Appointment Type:URO Office Visit [facility] evaluation note* Diagnosis Pre-op chest exam Pre-operative respiratory examination documented in this encounter [employer] Work Phone: evaluation note* Diagnosis S/P laparoscopic sleeve gastrectomy- Primary documented in this encounter [employer] Work Phone: evaluation noteNo InformationNosullivan county memorial hospital [employer] Other Evaluaxfzi noteNo assessment information [facility] Work Phone: Evalukkghp note* Diagnosis Lumbar adjacent segment disease with spondylolisthesis- Primary Lumbar adjacent segment disease with spondylolisthesis documented [facility] Diagnosis Lumbar adjacent segment disease with spondylolisthesis- Primary documented in this [facility]* Diagnosis Lumbar adjacent segment disease with spondylolisthesis- Primary [facility] in this [facility]* Diagnosis Radiculopathy, lumbar region- Primary Thoracic or lumbosacral neuritis or radiculitis, unspecified [facility] Diagnosis Onset Date Resolution Status CKD (chronic kidney disease) stage 3, GF R 30-59 ml/min [id number] hematuriaacute NephrolithiasisacuteSecondary hyperparathyroidismacuteType 2 diabetes mellitus with diabetic chronic kidney diseaseacute [facility] Work Phone: Evaluation note* Diagnosis Spinal stenosis, lumbar region, with neurogenic claudication- Primary [facility] Diagnosis Spinal stenosis, lumbar region, with neurogenic claudication- Primary [facility] Diagnosis Spinal stenosis, lumbar region, with neurogenic claudication- Primary [facility] encounter [facility] Narrative - Reported* Type Description Date Medical History RENAL CALCULUS, LEFT Medical HistoryDISTAL URETERAL CALCULUS, RIGHTMedical HistoryTEAR OF MEDIAL MENISCUS, RIGHT KNEEMedical HistoryHEMATURIAMedical HistoryPANIC ATTACKMedical HistoryDEPRESSIONMedical HistoryIRRITABLE BOWEL SYNDROMEMedical HistoryKNEE OSTEOARTHRITISSurgical HistoryLEFT TOTAL KNEE ARTHROPLASTYSurgical HistoryRIGHT KNEE ARTHROPLASTY x203/25/12Surgical HistoryVASECTOMYSurgical HistoryLUMBAR DISKECTOMY L4-L510/16/18Surgical HistoryCYSTOSCOPY RIGHT RENAL CALCULISurgical HistoryCYSTOSCOPY LEFTSurgical HistoryCYSTOSCOPY RIGHT URETERAL STENT REMOVAL Surgical HistoryGASTRIC SLEEVE04/2021[facility] [employer] Other History general Narrative - Reported* Type Description Date Medical History RENAL CALCULUS, LEFT Medical HistoryDISTAL URETERAL CALCULUS, RIGHTMedical HistoryTEAR OF MEDIAL MENISCUS, RIGHT KNEEMedical HistoryHEMATURIAMedical HistoryPANIC ATTACKMedical HistoryDEPRESSIONMedical HistoryIRRITABLE BOWEL SYNDROMEMedical HistoryKNEE OSTEOARTHRITISMedical HistoryKNEE INFECTIONSurgical HistoryLEFT TOTAL KNEE ARTHROPLASTYSurgical HistoryRIGHT KNEE ARTHROPLASTY x203/25/12Surgical History VASECTOMYSurgical HistoryLUMBAR DISKECTOMY L4-L58/Surgical History CYSTOSCOPY RIGHT RENAL CALCULISurgical HistoryCYSTOSCOPY LEFTSurgical History CYSTOSCOPY RIGHT URETERAL STENT REMOVALSurgical HistoryGASTRIC SLEEVE04/2021 Surgical HistoryKNEE JOINT VXILUHI22/2022Surgical HistoryNEW TOTAL KNEE REPLACEMENT03/2022Hospitalization HistorySEE [facility]OVE [employer] Other Hospital course Narrative No data available for this section [facility] Hospital Discharge instructions No data available for this section General Surgery [facility] InstructionsNot on filedocumented in this encounter [facility] on filedocumented in this encounter [facility] SystemInstructionsNot on filedocumented in this encounter [facility] SystemInstructionsNot on filedocumented in this encounter [facility] note No data available for this section [facility] reason for referral (narrative)* Diagnostic Procedure Only (Routine) - Pending ReviewSpecialtyDiagnoses / ProceduresReferred By ContactReferred To ContactXR IMAGING Diagnoses Lumbar adjacent segment disease with spondylolisthesis Procedures XR LUMBAR LIMITED 2V AP/LAT RADEX SPINE LUMBOSACRAL 2/3 VIEWS Singh Morgan PA-C [address] [place] [address] Xr Imaging [place] [address] Referral IDStatusReasonStart DateExpiration DateVisits RequestedVisits [id number] Review Auto-Generated Referral / [facility] for referral (narrative)* Diagnostic Procedure Only (Routine) - Pending ReviewSpecialtyDiagnoses / ProceduresReferred By Contact Referred To ContactXR IMAGING Diagnoses Radiculopathy, lumbar region Procedures XR LUMBAR LIMITED 2V AP/LAT RADEX SPINE LUMBOSACRAL 2/[place] [address] [place] [address] [place] [address] Referral IDStatusReasonStart DateExpiration DateVisits RequestedVisits [id number] Review Auto-Generated Referral / [facility] (narrative)No reason for referral information availableOhio[facility] Work Phone: Reason for visit Narrative* Auth/CertSpecialty Diagnoses / ProceduresReferred By ContactReferred To Contact Diagnoses Morbid obesity (HCC) Type II diabetes circulatory disorder causing erectile dysfunction (HCC) Hypertension MORBID OBESITY, TYPE II DIABETES, HYPERTENSION Procedures KY LAP, JUAN RESTRICT PROC, LONGITUDINAL GASTRECTOMY XI ROBOTIC LAPOROSCOPIC GASTRECTOMY SLEEVE, LIVER BIOPSY, EGD- GI SCHEDULED Octavio Mcclellan, DO [address] [facility] [address] [place] [address] [facility] [address] [place] [address] Referral IDStatusReasonStwhite plains DateExpiration DateVisits RequestedVisits [id number] [employer] Phone: Advance Directives No Advanced Directives Records FoundDocuments on File TypeDate RecordedPatient RepresentativeExplanationAdvance Directives and Living WillPower of Drama Critic Advance Directive Response Recorded Date/ Time Advance Directives No September 16 2:32pm TypeDate RecordedPatient RepresentativeExplanationACP-Advance DirectiveACP-Power of AttorneyTypeDate RecordedPatient RepresentativeExplanationACP-Advance DirectiveACP-Power of AttorneyCode StatusDate ActivatedDate InactivatedComments Full Code05/24/2021 4:29 PM Advance Directive Response Recorded Date/ Time Advance Directives No September 16 3:32pm Summary Purpose Family History No Family History Records Found Relationship Condition Age at Onset Recorded Date/T kelsi Not Specified History of gastric bypass Unknown fatherMalignant neoplasm of oral cavityUnknownMalignant neoplasm of pharynx Unknown Relationship Condition Age at Onset Recorded Date/T kelsi mother History of gastric bypass Unknown fatherMalignant neoplasm of oral cavityUnknownMalignant neoplasm of pharynx UnknownfatherMalignant neoplasmUnknownDeceasedUnknownmotherHeart diseaseUnknown Diabetes mellitusUnknownHypertensionUnknownsonHeart diseaseUnknownAneurysm Unknown Assessments Diagnosis Injury Injury, other and unspecified, unspecified site Diagnosis Fluid retention in legs- Primary Edema Diagnosis Acute bilateral low back pain with right-sided sciatica- Primary Traumatic buttock pain Reason for Referral StatusReasonSpecialtyDiagnoses / ProceduresReferred By ContactReferred To ContactClacmh hospitalCardiovascular Medicine Diagnoses Fluid retention in legs Alexandro Muhammad MD [address] [place] [address] Maite John MD [address] [place] [address] Scheduling Instructions . SpecialtyDiagnoses / ProceduresReferred By ContactReferred To [facility] Diagnoses Lumbar adjacent segment disease with spondylolisthesis Procedures CONSULT TO [facility]) OFFICE/OUTPATIENT [facility] 60-[place] [address] [place] [address] Referral IDStatusReasonStart DateExpiration DateVisits RequestedVisits [id number] Review PCP Requested Referral /[id number] / ProceduresReferred By ContactReferred To Critical access hospitalAB [facility] Diagnoses Lumbar adjacent segment disease with spondylolisthesis Procedures CONSULT TO PHYSICAL THERAPY PHYSICAL THERAPY EVALUATION HIGH COMPLEX 45 MINS Riddhi Goss, OIL WELL LOGGER.TOOL MECHANIC [address] [place] [address] [facility] [address] [place] [address] Referral IDStatusReasonStart DateExpiration DateVisits RequestedVisits [id number] Review Auto-Generated Referral History of Present Illness * Alexandro Muhammad [...] has been treated in the past by group sales coordinator as well as his PCP. They contribute [...] file Gets together: Not on file Attends anglican service: Not on file Active member of [...] 01/08/2020 2:19 PM Patient: Sukhdeep Simental MR#: [id number] : 1965 Age: 54 y.o. 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 [...] []Chair,[]cane, []bracing Are you followed by a pbx inspector? [] [x] Name: Are you followed by [...] kidney disease) stage 3, GFR 30-59 ml/min [id number] Hyperuricemia Microscopic hematuria Nephrolithiasis Secondary hyperparathyroidism Type 2 diabetes mellitus with diabetic chronic kidney disease Chief Complaint Admit Date Unknown December 04, 2024 1 :12pm Discharge Instructions * Attachments The following attachments cannot be sent through Care Everywhere. * Back Pain (Macedonian) documented in this encounter Additional Source Comments (unrecognized sect ion and content) No Status Records FoundNo Status Records FoundNo Status Records FoundNo Status Records FoundNo Status Records FoundNo Status Records FoundNo Status Records FoundNo Status Records FoundNo Status Records FoundNo Status Records FoundNo Status Records FoundNo Status Records Found INFORMATION SOURCE (unrecogn ized section and content) DATE CREATED AUTHOR 04/18/2019 [facility] DATE CREATED AUTHOR AUTHOR'S ORGANIZ ATION 06/10/2019 [facility] DATE CREATED AUTHOR AUTHOR'S ORGANIZ ATION 07/21/2021 [facility] DATE CREATED AUTHOR AUTHOR'S ORGANIZ ATION 10/22/2021 [facility] DATE CREATED AUTHOR AUTHOR'S ORGANIZ ATION 08/04/2022 [facility] DATE CREATED AUTHOR AUTHOR'S ORGANIZ ATION 12/12/2022 [facility] DATE CREATED AUTHOR AUTHOR'S ORGANIZ ATION 07/27/2023 [facility] DATE CREATED AUTHOR AUTHOR'S ORGANIZ ATION 02/16/2024 [facility] DATE CREATED AUTHOR AUTHOR'S ORGANIZ ATION 06/19/2024 [facility] DATE CREATED AUTHOR AUTHOR'S ORGANIZ ATION 06/30/2024 [facility] DATE CREATED AUTHOR AUTHOR'S ORGANIZ ATION 11/27/2024 [facility] DATE CREATED AUTHOR AUTHOR'S ORGANIZ ATION 12/07/2024 [facility] Reason for Visit (unrecogniz ed section and content) StatusReasonSpecialtyDiagnoses / ProceduresReferred By ContactReferred To ContactPending Review Diagnoses Hx of total knee arthroplasty, right Procedures XR BONE LENGTH STUDY Alexandro Muhammad MD [address] [place] [address] ReasonCommentsPainStatusReasonSpecialtyDiagnoses / ProceduresReferred By Contact Referred To ContactClosedCardiovascular Medicine Diagnoses Localized edema Procedures ECHOCARDIOGRAM [place] ECHO HEART XTHORACIC,COMPLETE W DOPPLER Suzanne Pruett MD [address] [place] [address] Horace Buc Echocardiography [address] [place] [address] ReasonCommentsBack PainLower back pain s/p slip on iceButtocks PainRt buttocks painReasonCommentsNew PatientLumbar spineSpecialtyDiagnoses / ProceduresReferred By ContactReferred To ContactNeurosurgery / NEUROSURGERY Diagnoses lumbar spine eHealth records requested Procedures REFERRAL TO [facility] FINANCIAL COUNSELOR NEW SPINE SURGICAL TRIAGE Jason Miller [address] [place] [address] [place] [address] [place] [address] Referral IDStatusReasonStart DateExpiration DateVisits RequestedVisits [id number] [facility]/[id number] ProblemReasonCommentspost op updateReasonCommentsFMLA PaperworkReasonComments Opened In ErrorReasonCommentsPost OpStaple removalSpecialtyDiagnoses / ProceduresReferred By ContactReferred To ContactNeurosurgery / NEUROSURGERY Diagnoses Follow-up examination post op visit Procedures OFFICE/OUTPATIENT ESTABLISHED MOD MDM 30-39 MIN POST OP NEUS/NRES Self Jeremy Schrader PA-C [address] [place] [address] Referral IDStatusReasonStart DateExpiration DateVisits RequestedVisits [id number]/26/202312/741981TonomoSfhebpnsEjisrlvp Outside Medical RecordspromedicaReasonCommentsFollow UpSpecialtyDiagnoses / Procedures Referred By ContactReferred To ContactNeurosurgery / NEUROSURGERY Diagnoses Follow-up exam Follow Up Procedures OFFICE/OUTPATIENT ESTABLISHED MOD [facility] 30-39 MIN EST NI PATIENT Self Jeremy Schrader PA-C [address] [place] [address] Referral IDStatusReasonStart DateExpiration DateVisits RequestedVisits [id number]/14/202312/14/[id number] Certification SpecialtyDiagnoses / ProceduresReferred By ContactReferred To Contact Neurosurgery / NEUROSURGERY Diagnoses Lumbar adjacent segment disease with spondylolisthesis discuss imaging and [facility] requirements Procedures PHYS/QHP TELEPHONE EVALUATION 5-10 MIN [place] [address] [place] [id number] Referral IDStatusReasonStart DateExpiration DateVisits RequestedVisits [id number] Patient Cleared - Admin/Meter Supervisor/Director advise to proceed or did not respond /[id number] DiscReasonCommentsAppointmentOrders ReasonCommentsResultsReasonCommentsBack PainBWCReasonCommentsBack PainReason CommentsAppointment Care Teams (unrecognized sec tion and content) Team Status: Active Member Role Status Dates PHYSICIAN NO FAMILY Primary Care Provider Active Team Status: Active Member Role Status Dates PHYSICIAN NO FAMILY Primary Care Provider Active Start: October 29, 2023 July Gao ProviderActiveStart: October 29, 2023 Team Status: Inactive Member Role Status Dates PHYSICIAN NO FAMILY Primary Care Provider Active Start: November 07, 2023 End: November 06July Armando ProviderActiveStart: November 07, 2023 End: November 07, 2023Team MemberRelationshipSpecialtyStart DateEnd Date Derick Isabel MD [address] [place] [id number] PCP - GeneralFamily Medicine2/15/20Team MemberRelationshipSpecialtyStart DateEnd Date Derick Isabel MD [address] [place] [address] PCP - GeneralFamily Medicine04/11/19Team MemberRelationshipSpecialtyStart DateEnd Date Derick Isabel MD [address] [place] [address] [facility] - [facility] Medicine04/11/19Team MemberRelationshipSpecialtyStart DateEnd Date Deirck Isabel MD [address] [place] [address] [facility] Medicine04/11/19 Team Status: Inactive Member Role Status Dates STEPH Sarkar Attending Provider Active Team Status: Inactive Member Role Status Dates PHYSICIAN NO FAMILY Primary Care Provider Active Gianni Nelosn DOAttking ProviderActive Team Status: Inactive Member Role Status Dates Estephanie Lowry NP-Bennett Attending Provider Active PHYSICIAN NO FAMILYPrimary Care ProviderActiveTeam MemberRelationshipSpecialty Start DateEnd Derick Isabel MD PCP - GeneralFamily Medicine11/06/13Team MemberRelationshipSpecialtyStart DateEnd Date Derick Isabel MD PCP - GeneralFamily Medicine11/06/13Team MemberRelationshipSpecialtyStart DateEnd Date Derick Isabel MD PCP - GeneralFamily Medicine11/06/13Team MemberRelationshipSpecialtyStart DateEnd Date Derick Isabel MD PCP - GeneralFamily Medicine11/06/13Team MemberRelationshipSpecialtyStart DateEnd Date Derick Isabel MD PCP - GeneralFamily Medicine11/06/13Team MemberRelationshipSpecialtyStart DateEnd Date Derick Isabel MD PCP - Generalmily Medicine11/06/13Team MemberRelationshipSpecialtyStart DateEnd Date Derick Isabel MD PCP - Generalmily Medicine11/06/13Team MemberRelationshipSpecialtyStart DateEnd Date Derick Isabel MD PCP - Generalmily Medicine11/06/13Team MemberRelationshipSpecialtyStart DateEnd Date Derick Isabel MD PCP - Generalmily Medicine11/06/13Team MemberRelationshipSpecialtyStart DateEnd Date Derick Isabel MD PCP - Generalmily Medicine11/06/13Team MemberRelationshipSpecialtyStart DateEnd Date Derick Isabel MD PCP - Generalmily Medicine11/06/13Team MemberRelationshipSpecialtyStart DateEnd Date Derick Isabel MD PCP - Generalmily Medicine11/06/13Team MemberRelationshipSpecialtyStart DateEnd Date Derick Isabel MD PCP - GeneralFamily Medicine10/08/18Team MemberRelationshipSpecialtyStart DateEnd Date Derick Isabel MD PCP - GeneralFamily Medicine10/08/18Team MemberRelationshipSpecialtyStart DateEnd Date Derick Isabel MD [address] [place] [id number] [facility] - [facility]Tu[facility] Medicine10/08/18Team MemberRelationshipSpecialtyStart End Derick Isabel MD [address] [place] [id number] PCP - Generalmi Medicine10/08/18Team MemberRelationshipSpecialtyStart End Derick Isabel MD PCP - [facility]Tu[facility] Medicine10/08/18Team MemberRelationshipSpecialtyStart End Derick Isabel MD PCP - GeneralFamily Medicine11/06/13 Team Status: Active Member Role Status Dates PHYSICIAN NO FAMILY Primary Care Provider Active Start: November 10, 2024 Oumou Weinstein MDAttending ProviderActiveStart: November 10, 2024 Team Status: Inactive Member Role Status Dates Derick Isabel MD Attending Provider Active Sta rt: December 04, 2024 End: December 04, 2024 Ordered Prescriptions (unrec ognized section and content) PrescriptionSigDispensedRefillsStart DateEnd enoxaparin (LOVENOX) 100 MG/ML injection Inject 1 mL into the skin 2 times daily for 10 days 20 mL /12/2021 promethazine (PHENERGAN) 25 MG tablet Take 1 tablet by mouth every 6 hours as needed for Nausea 30 tablet oxyCODONE-acetaminophen (PERCOCET) 5-325 MG per tablet Indications:S/P laparoscopic sleeve gastrectomyTake 1 tablet by mouth every 6 hours as needed for Pain for up to 7 days. Intended supply: 7 days. Take lowest dose possible to manage pain 28 tablet /08/2021 metoprolol tartrate (LOPRESSOR) 25 MG tablet Take 1 tablet by mouth 2 times daily 60 tablet / enoxaparin (LOVENOX) 100 MG/ML injection Inject 1 mL into the skin 2 times daily 60 mL /02/2021 Scheduled Active and Recently Administ ered Medications (unrecognized section and content) Medication Order/ aprepitant (EMEND) capsule 80 mg 80 mg, Oral, DAILY, First dose on Sat05/25/21 at 1815, Until Discontinued * 1838 (Given - Provider: Milagros Reich RN) * 0926 (Given - Provider: Jenny Lentz, BRETT) ceFAZolin [...] mL Sterile Water (final administration volume=10 mL). * 2117 (Given - Provider: Giselle Painting RN) * 05 (Given - Provider: Giselle Painting RN) enoxaparin (LOVENOX) injection 60 mg 60 mg, SubCUTAneous, 2 TIMES DAILY, First dose on Sat05/24/21 at 2100, Until Discontinued, Pharmacyto dose if renal insufficiency present. * 2116 (Given - Provider: Giselle Painting RN) * 0843 (Given - Provider: Milagros Reich RN) * 2131 (Given - Provider: Batsheva Carias RN) * 0926 (Given - Provider: Jenny Lentz RN) * 2099 (Due) famotidine (PEPCID) 20 mg in sodium chloride (PF) 10 mL injection(Linked Group 1) 20 mg, IntraVENous, 2 TIMES DAILY, First dose on Sat05/24/21 at 2100, Until Discontinued, Administer if oral route cannot be used, Post-op * 2116 (See Alternative - Provider: Giselle Painting RN) * 0839 (See Alternative - Provider: Milagros Reich RN) * 213 (See Alternative - Provider: Batsheva Carias, RN) * 1008 (See Alternative - Provider: Jenny Lentz RN) * 2100 (Due) famotidine (PEPCID) tablet 20 mg(Linked Group 1) 20 mg, Oral, 2 TIMES DAILY, First dose on Sat05/24/21 at 2100, Until Discontinued, Post-op * 2116 (Given - Provider: Giselle Painting RN) * 0839 (Given - Provider: Milagros Reich RN) * 213 (Given - Provider: Batsheva Carias, BRETT) * 1008 (Given - Provider: Jenny Lentz, BRETT) * 2100 (Due) gabapentin (NEURONTIN) capsule 100 mg 100 mg, Oral, 3 TIMES DAILY, First dose on Sat05/24/21 at 1530, Until Discontinued * 1530 (Due) * 2116 (Given - Provider: Giselle Painting RN) * 0838 (Not Given - Provider: Milagros Reich RN - Reason: Patient/family refused) * 1405 (Not Given - Provider: Milagros Reich RN - Reason: Patient/family refused) * 213 (Not Given - Provider: Batsheva Carias RN - Reason: Patient/family refused) * 0900 (Not Given - Provider: Jenny Lentz RN - Reason: Patient/family refused) * 1400 (Due) * 2100 (Due) ipratropium-albuterol (DUONEB) nebulizer solution 1 ampule 1 ampule, Inhalation, EVERY 6 HOURS WHILE AWAKE, First dose on Sat05/24/21 at 1530, Until Discontinued, Initiate RT Bronchodilator Protocol: Yes, q6 hours and PRN * 1530 (Due) * 2057 (Not Given - Provider: Naheed Fernando RCP - Reason: Other - Comment: pt. sleeping) * 0745 (Given - Provider: Dottie Otoole RCP) * 1301 (Given - Provider: Dottie Otoole RCP) * 1949 (Given - Provider: Yamilka Doyle RCP) * 0729 (Not Given - Provider: Swapna De Anda RCP - Reason: Patient/family refused - Comment: pt statedhe wants to sleep) * 1400 (Due) * 2000 (Due) metoprolol (LOPRESSOR) injection 5 mg (CANCELED) 5 mg, IntraVENous, EVERY 6 HOURS, First dose on Sat05/24/21 at 1530, Until Discontinued * 1756 (Given - Provider: Milagros Reich RN) * 0015 (Given - Provider: Giselle Painting, BRETT) * 0605 (Given - Provider: Giselle Painting, RN) * 1148 (Given - Provider: Milagros Reich RN) metoprolol tartrate (LOPRESSOR) tablet 25 mg 25 mg, Oral, 2 TIMES DAILY, First dose on Sat05/25/21 at 1315, Until Discontinued * 1408 (Given - Provider: Milagros Reich RN) * 2132 (Given - Provider: Batsheva Carias RN) * 1009 (Given - Provider: Jenny Lentz RN) * 2100 (Due) scopolamine (TRANSDERM-SCOP) transdermal patch 1 patch (CANCELED) 1 patch, TransDERmal, Administer over 72 Hours, EVERY 72 HOURS, First dose on Sat05/24/21 at 1700, 1.5 mg patch delivers 1 mg over 3 days. Apply patch to hairless area behind the ear., Post-op * 1714 (Patch Applied - Provider: Milagros Reich RN) * 1629 (Patch Removed - Provider: Milagros Reich RN - Comment: Time automatically adjusted from order being discontinued) sodium chloride flush 0.9 % injection 5-40 mL 5-40 mL, IntraVENous, EVERY 12 HOURS SCHEDULED (2 times per day), First dose on Sat05/24/21 at 2100, Until Discontinued, For Line Patency: Peripheral IV = 5 mL; Midline or Central Line = 10 mL/lumen.If following IV push medication, administer flush at same rate as the IV push. Flush volume is determined by type of infusion therapy being given. For non-viscous solutions use: Peripheral IV = 5 mL Midline or Central Line = 10 mL/lumen For viscous solutions (i.e. blood components, parenteral nutrition, contrast media, or after obtaining blood sample) use: Peripheral IV = 10 mL Midline or CentralLine = 20 mL/lumen, Post-op * 2116 (Not Given - Provider: Giselle Painting, RN - Reason: IV Fluid Infusing) * 0838 (Not Given - Provider: Milagros Reich RN - Reason: IV Fluid Infusing) * 2132 (Given - Provider: Batsheva Carias, RN) * 1006 (Not Given - Provider: Jenny Lentz, RN - Reason: Loss of IV access) * 2100 (Due) tamsulosin (FLOMAX) capsule 0.4 mg 0.4 mg, Oral, DAILY, First dose on [place] 05/25/21 at 0900, Until Discontinued, Do not crush or break. * 0920 (Given - Provider: Milagros Reich RN) * 0900 (Due) Medication Order//02/2021 lactated ringers infusion 1,000 mL (CANCELED) 1,000 mL, IntraVENous, at 50 mL/hr, CONTINUOUS, Starting on Sat05/24/21 at 1015, Pre-op (day of surgery) * 1042 (New Bag - Provider: Molly Williamson RN) * 1301 (NoRateChange - Provider: Yi Mena, BRETT) * 1427 (Paused - Provider: Yi Mena RN - Comment: Switch to gravity) * 1428 (New Bag - Provider: Yi Mena, BRETT) * 1503 (Anesthesia Volume Adjustment - Provider: Yi Mena, RN) * 0730 (Stopped - Provider: Jenny Lentz, RN) lactated ringers infusion (CANCELED) IntraVENous, at 125 mL/hr, CONTINUOUS, Starting on Sat05/24/21 at 1645, Post-op * 1638 (New Bag - Provider: Milagros Reich, BRETT) * 1933 (New Bag - Provider: Milagros Reich, BRETT) * 0315 (New Bag - Provider: Giselle Painting, RN) * 0730 (Stopped - Provider: Jenny Lentz, RN) Medication Order//02/2021 0.9 % sodium chloride infusion 25 mL, IntraVENous, at 100 mL/hr, PRN, If patient receiving piggyback infusions without ordered maintenance IV fluids or with frequent/long duration piggyback infusions, Starting on Sat05/24/21 at 1628, Administer at the same rate as the piggyback being infused., Post-op bupivacaine (MARCAINE) 0.5 % injection (CANCELED) PRN, Starting on Sat05/24/21 at 1351, Until Sat05/24/21 at 1616, Intra-op * 1351 (Given - Provider: Octavio Mcclellan, DO - Comment: Given at incision sites.) cyclobenzaprine (FLEXERIL) tablet 10 mg 10 mg, Oral, 3 TIMES DAILY PRN, Starting on Sat05/24/21 at 1507, Until Discontinued, Muscle spasms * 0845 (Given - Provider: Milagros Reich RN) * 1541 (Given - Provider: Milagros Reich RN) fentaNYL (SUBLIMAZE) injection 50 mcg (COMPLETED) 50 mcg, IntraVENous, ONCE PRN, 1 dose, Starting on Sat05/24/21 at 1024, Until Sat05/24/21 at 2359, Pain Severe (7-10), ., Pre-op (day of surgery) * 1043 (Given - Provider: Molly Williamson RN) fentaNYL (SUBLIMAZE) injection 50 mcg (CANCELED) 50 mcg, IntraVENous, EVERY 5 MIN PRN, 4 doses, Starting on Sat05/24/21 at 1404, Until Sat05/24/21 at 1620, Pain Severe (7-10), Phase I - Initial therapy for severe pain., PACU only * 1545 (Given - Provider: Pricilla Vivar RN) * 1550 (Given - Provider: Pricilla Vivar RN) HYDROmorphone [...] of each other unless specifically ordered., Post-op * 1637 (Given - Provider: Milagros Reich, BRETT) * 1933 (Given - Provider: Milagros Reich, BRETT) * 0015 (Given - Provider: Giselle Painting RN) * 0841 (Given - Provider: Milagros Reich RN) * 2137 (Given - Provider: Batsheva Carias RN) midazolam PF (VERSED) injection 1 mg (CANCELED) 1 mg, IntraVENous, EVERY 10 MIN PRN, 2 doses, Starting on Sat05/24/21 at 1024, Until Sat05/24/21 [id number], Anxiety, Anxiety pre-op. Max dose 2 mg., Pre-op (day of surgery) * 1043 (Given - Provider: Molly Williamson, BRETT) ondansetron (ZOFRAN) injection 4 mg 4 mg, IntraVENous, EVERY 6 HOURS PRN, Starting on Sat05/24/21 at 1628, Until Discontinued, Nausea, Post-op * 2126 (Given - Provider: Giselle Painting RN) * 0409 (Given - Provider: Giselle Painting RN) * 1616 (Given - Provider: Milagros Reich RN) oxyCODONE-acetaminophen (PERCOCET) 5-325 MG per tablet 1 tablet(Linked Group 2) Mg/kg dosing is based on the oxycodone component., 1 tablet, Oral, EVERY 6 HOURS PRN, Starting on Sat05/24/21 at 1507, Until Discontinued, Pain Moderate (4-6), Maximum dose of acetaminophen is 4000 mg from all sources in 24 hours. * 2126 (See Alternative - Provider: Giselle Painting RN) * 0422 (See Alternative - Provider: Giselle Painting RN) * 1148 (See Alternative - Provider: Milagros Reich RN) * 1839 (See Alternative - Provider: Milagros Reich RN) * 0051 (See Alternative - Provider: Alesha Shaikh, BRETT) * 0755 (See Alternative - Provider: Jenny Lentz, BRETT) * 1348 (See Alternative - Provider: Jenny Lentz, RN) oxyCODONE-acetaminophen (PERCOCET) 5-325 MG per tablet 2 tablet(Linked Group 2) Mg/kg dosing is based on the oxycodone component., 2 tablet, Oral, EVERY 6 HOURS PRN, Starting on Sat05/24/21 at 1507, Until Discontinued, Pain Severe (7-10), Maximum dose of acetaminophen is 4000 mgfrom all sources in 24 hours. * 2126 (Given - Provider: Giselle Painting, RN) * 0422 (Given - Provider: Giselle Painting RN) * 1148 (Given - Provider: Milagros Reich, RN) * 1839 (Given - Provider: Milagros Reich, BRETT) * 0051 (Given - Provider: Alesha Shaikh, BRETT) * 0755 (Given - Provider: Jenny Lentz, RN) * 1348 (Given - Provider: Jenny Lentz, RN) promethazine (PHENERGAN) tablet 25 mg 25 mg, Oral, EVERY 6 HOURS PRN, Starting on Sat05/24/21 at 1507, Until Discontinued, Nausea * 1652 (Given - Provider: Milagros Reich RN) * 0257 (Given - Provider: Alesha Shaikh RN) sodium chloride 0.9 % irrigation (COMPLETED) CONTINUOUS PRN, Starting on Sat05/24/21 at 1351, Intra-op * 1351 (New Bag - Provider: Octavio Mcclellan, DO - Comment: 1000 ml. poured to back table, 1000 ml.for suction sleep technician.) sodium chloride flush 0.9 % injection 5-40 mL 5-40 mL, IntraVENous, PRN, Starting on Sat05/24/21 at 1628, Until Discontinued, Line Care, After every IV line use, Post-op Order Group 1: famotidine (PEPCID) tablet 20 [...] Sat05/24/21 at 1507, Until Discontinued, Pain Severe (7- 10)
Maximum dose of acetaminophen is 4000 mg [...] or prosecute any alcohol or drug abuse patient.[facility] the event this information is protected by the Federal Confidentiality of Alcohol and Drug Abuse Patient Records regulations: The Federal rules restrict any use of the information to criminally investigate or prosecute any alcohol or drug abuse patient.[facility] HospitalIn the event this information is protected by the Federal Confidentiality of Alcohol and Drug Abuse Patient Records regulations: The Federal rules restrict any use of the information to criminally investigate or prosecute any alcohol or drug abuse patient.[facility]In the event this information is protected by the Federal Confidentiality of Alcohol and Drug Abuse Patient Records regulations: The Federal rules restrict any use of the information to criminally investigate or prosecute any alcohol or drug abuse patient.[facility] HospitalIn the event this information is protected by the Federal Confidentiality of Alcohol and Drug Abuse Patient Records regulations: The Federal rules restrict any use of the information to criminally investigate or prosecute any alcohol or drug abuse patient.[facility] HospitalIn the event this information is protected by the Federal Confidentiality of Alcohol and Drug Abuse Patient Records regulations: The Federal rules restrict any use of the information to criminally investigate or prosecute any alcohol or drug abuse patient.[facility] HospitalIn the event this information is protected by the Federal Confidentiality of Alcohol and Drug Abuse Patient Records regulations: The Federal rules restrict any use of the information to criminally investigate or prosecute any alcohol or drug abuse patient.[facility] HospitalIn the event this information is protected by the Federal Confidentiality of Alcohol and Drug Abuse Patient Records regulations: The Federal rules restrict any use of the information to criminally investigate or prosecute any alcohol or drug abuse patient.[facility] HospitalIn the event this information is protected by the Federal Confidentiality of Alcohol and Drug Abuse Patient Records regulations: The Federal rules restrict any use of the information to criminally investigate or prosecute any alcohol or drug abuse patient.[facility] HospitalIn the event this information is protected by the Federal Confidentiality of Alcohol and Drug Abuse Patient Records regulations: The Federal rules restrict any use of the information to criminally investigate or prosecute any alcohol or drug abuse patient.[facility] HospitalIn the event this information is protected by the Federal Confidentiality of Alcohol and Drug Abuse Patient Records regulations: The Federal rules restrict any use of the information to criminally investigate or prosecute any alcohol or drug abuse patient.[facility] HospitalIn the event this information is protected by the Federal Confidentiality of Alcohol and Drug Abuse Patient Records regulations: The Federal rules restrict any use of the information to criminally investigate or prosecute any alcohol or drug abuse patient.[facility] HospitalIn the event this information is protected by the Federal Confidentiality of Alcohol and Drug Abuse Patient Records regulations: The Federal rules restrict any use of the information to criminally investigate or prosecute any alcohol or drug abuse patient.[facility] HospitalIn the event this information is protected by the Federal Confidentiality of Alcohol and Drug Abuse Patient Records regulations: The Federal rules restrict any use of the information to criminally investigate or prosecute any alcohol or drug abuse patient.[facility] HospitalIn the event this information is protected by the Federal Confidentiality of Alcohol and Drug Abuse Patient Records regulations: The Federal rules restrict any use of the information to criminally investigate or prosecute any alcohol or drug abuse patient.[facility] HospitalIn the event this information is protected by the Federal Confidentiality of Alcohol and Drug Abuse Patient Records regulations: The Federal rules restrict any use of the information to criminally investigate or prosecute any alcohol or drug abuse patient.[facility] HospitalIn the event this information is protected by the Federal Confidentiality of Alcohol and Drug Abuse Patient Records regulations: The Federal rules restrict any use of the information to criminally investigate or prosecute any alcohol or drug abuse patient.[facility] HospitalIn the event this information is protected by the Federal Confidentiality of Alcohol and Drug Abuse Patient Records regulations: The Federal rules restrict any use of the information to criminally investigate or prosecute any alcohol or drug abuse patient.[facility] HospitalIn the event this information is protected by the Federal Confidentiality of Alcohol and Drug Abuse Patient Records regulations: The Federal rules restrict any use of the information to criminally investigate or prosecute any alcohol or drug abuse patient.[facility] FOR RECORDS PERTAINING TO PATIENTS WHO [...] BE BASED ON THE PRIMARY CLINICAL RECORDS. [facility] provides no warranty or guarantee of the accuracy or completeness of information in this document.
[2025-02-01 16:25] LABS: Hematocrit 46.5 % (42.0-54.0); Hemoglobin 16.2 g/dL (14.0-18.0); Immature Granulocytes Abs Auto 0.01 10^3/uL (0.00-0.03); Immature Granulocytes Pct Auto 0.2 % (0.0-0.5); Lymphocytes Absolute Auto 1.5 10^3/uL (1.2-3.8); Mean Corpuscular HGB Conc 34.8 g/dL (29.9-35.2); Mean Corpuscular Hemoglobin 32.3 pg (25.9-34.0); Mean Corpuscular Volume 92.8 fL (80.0-94.0); Platelet Count 229 10^3/uL (150-450); Red Blood Count 5.01 10^6/uL (4.70-6.10); White Blood Count 6.4 10^3/uL (4.0-11.0)
== END 2025-02-01 16:08 | disposition home or self-care (01) ==
LOC: LAB 16:08
PROVIDERS: PCP Family Medicine; Visit Provider Nurse Practitioner Family
DX: M25.562 Pain in left knee (principal); Z96.652 Presence of left artificial knee joint
CPT/HCPCS: 36415; 85025; 85652; 86140

== ENCOUNTER 2025-02-15 16:47 | Outpatient (OUT) | payer OTHER, MEDICARE, SELFPAY ==
--- OUTSIDE RECORDS SUMMARY | 2021-07-31 03:10 | XMS_ITS | Continuity of Care Document ---
Author Organization [facility] Address [address] [place] [address] Phone Care Team Providers Care Petrography Teacher Name Role Phone Preeti Gee MD, Andrés Unavailable Unavailab le Allergies, Adverse Reactions, Alerts Substance Reaction Status Criticality IODINE Rash Active No Information Medications Medication Instructions Dosage Dose Quantity Effective Dates (start - stop) Status Indication Fill Status Comments trazodone 50 mg tablet take 0.5 tablet by oral route every day at bedtime 25 MG 0.5 tablet - Active indomethacin 50 mg capsule take 1 capsule by oral route 3 times every day with food 40 MG 1 tablet - Active simvastatin 10 mg tablet take 1 tablet by oral route every day in the evening 40 MG 1 tablet - Active testosterone cypionate 100 mg/mL intramuscula r oil inject 0.5 milliliter by intramuscular route every 4 weeks 40 MG 1 tablet - Active Eliquis 5 mg tablet take 1 tablet by oral route 2 times every day 40 MG 1 tablet - Active Protonix 40 mg tablet,delay ed release take 1 tablet by oral route every day 40 MG 1 tablet - Active Flomax 0.4 mg capsule take 1 capsule by oral route every day 1/2 hour following the same meal each day 40 MG 1 tablet - Active spironolacto ne 100 mg tablet take 1 tablet by oral route every day 40 MG 1 tablet - Active Zanaflex 4 mg capsule take 1 capsule by oral route every 6 - 8 hours as needed not to exceed 3 doses in 24 hours 40 MG 1 tablet - Active Avapro 300 mg tablet take 1 tablet by oral route every day 40 MG 1 tablet - Active Cardura 4 mg tablet take 1 tablet by oral route every day 40 MG 1 tablet - Active Procedures Procedure Date POSTOP FOLLOW-UP VISIT Advance Directives Directive Yes / No Effective Date File Name No Information Encounters Encounter Description Practice Location Reason(s) For Visit Diagnoses Date Provider Encounter Disposition [place] [facility], [address], [place], [place], [id number], [place] tel:[phone] [facility] venous insufficiency (chief complaint)Comme nt (chief complaint) Acute saddle pulmonary embolism with acute cor pulmonale 2 Preeti Bowen. [address] [facility], [place], [address], [place]. tel:[phone] Family History Family Member Type Diagnosis Age At Onset No Information Payers Payer name Insurance type Identifiers Authorization(s) Com ments No Information Social History Type Description Quantity Date Captured Comments Alcohol Use Details Unknown Caffeine Use Details Unknown Tobacco Use Status Current non-smoker Smoking Status Never smoker Non-Smoking Tobacco Use Details : No Details Available : No Details Available [id number] SexMaleCurrent GenderMale (finding) Vital Signs Date / Time: Height Weight BMI Pulse Rate Blood Pressure Temperature Respiratory Rate Body Surface Area Head Circumference Head Circ. Percentile Wt./Jose Eduardo. Percentile BMI percentile Pulse Ox Inhaled Ox 8:23 AM 99 /min 149/84 mm[Hg] 96.80 F 18 /min 96 % 21 % Chief Complaint And Reason For Visit From encounter dated '07/31/2021 08:10'. venous insufficiency (chief complaint). Description: It occurs constantly. Location: right knee. The pain is aching and dull. The pain is aggravated by sitting, walking and standing. Associated symptoms include joint tenderness, numbness, swelling, tingling in the legs and weakness. Additional information: needs right knee replacement, on thinners. Comment (chief complaint). Description: This is a 55-year-old male who I am seeing is a hospital follow-up. He had acute bilateral pulmonary emboli with right heart strain and was treated emergently with he goes ultrasound assisted thrombolysis. He has only been on Hospital for about 2 weeks. He was discharged on home oxygen therapy because of decreased saturations but says that since he has beenhome he has not been using of the oxygen at all.In terms of oxygen therapy he will need follow-up with a cream tester to clear him from home oxygen use. He is here bleeding with me at that he needs to have right knee surgery and wanted preoperative clearance to hold anticoagulation. He has had multiple interventions in the past which resulted in postoperative DVT. This soon after his operation really there is no way that he can have elective knee surgery. I understand he is in significant painabout the guidelines for pulmonary embolism specially to the extent he had is at least 6 months of a nticoagulation. I think he is at very high risk for another thromboembolic event and thrombolytics therapy would not be able to be used if it happens after this knee operation. I discussed this with him clearly on that he must be on anticoagulation at least 6 months. History Of Present Illness Encounter Date Complaint History Of Prese nt Illness venous insufficiency It occurs c onstantly. Location: right knee. The pain is aching and dull. The pain is aggravated by sitting, walking and standing. Associated symptoms include joint tenderness, numbness, swelling, tingling in the legs and weakness. Additional information: needs right knee replacement, on thinners. Comment This is a 55-yea r-old male who I am seeing is a hospital follow-up. He had acute bilateral pulmonary emboli with right heart strain and was treated emergently with he goes ultrasound assisted thrombolysis. He has only been on Hospital for about 2 weeks. He was discharged on home oxygen therapy because of decreased saturations but says that since he has been home he has not been using of the oxygen at all.In terms of oxygen therapy he will need follow-up with a cream tester to clear him from home oxygen use. He is here bleeding with me at that he needs to have right knee surgery and wanted preoperative clearance to hold anticoagulation. He has had multiple interventions in the past which resulted in postoperative DVT. This soon after his operation really there is no way that he can have elective knee surgery. I understand he is in significant pain about the guidelines for pulmonary embolism specially to the extent he had is at least 6 months of anticoagulation. I think he is at very high risk for another thromboembolic event and thrombolytics therapy would not be able to be used if it happens after this knee operation. I discussed this with him clearly on that he must be on anticoagulation at least 6 months. Functional Status Date Description Comments No Information Instructions Date Instruction Additional Infor clint No Information Assessments Type Assessment Date assessment Acute saddle pulmonary embolism with acute cor pulmonale impression Unfortunately I memo ot prove holding his anticoagulation any sooner than 6 months. He has significant perioperative risk of a recurrent of thromboemboli. In terms of his oxygen he will need to see a cream tester of to clear whether not he can be taken off home oxygen therapy. I plan to see him back in 6 months. Mental Status Date Description Comments Orientation - Oriented to time, place, person, situation.
--- OUTSIDE RECORDS SUMMARY | 2024-12-02 11:00 | XMS_ITS ---
Author Organization [facility] [place] Address [address] [place] [address] Care Team Providers Care [employer] Collector Name Role Phone ABELARDO PACKER MD Primary Care Provider Abelardo Packer Unavailable [phone] REASON FOR VISIT POSSIBLE BLOOD CLOT IN LUNG Encounters Encounter Location Date Provider Diagnosis [facility] [address] [place] [address] 12/02/2024 Abelardo Packer Plan Of Treatment Next Appt Details Provider Name:Abelardo Packer, 10:00:00 AM, [address] [place], [address], Progress Notes * Aldo SIMENTALDOB:1965 ([age] yo M)Acc No.[id number]:12/02/2024 UNLOCKED PROGRESS NOTE Progress Note Patient: Aldo DIXON :?Derick Packer ([facility]), MDDOB:1965???Age: 59 Y???Sex:MaleDate:12/02/2024Phone:[phone]:[phone], [id number]:ABELARDO PACKER MD Subjective: * Chief Complaints: * 1 . POSSIBLE BLOOD CLOT IN LUNG. * Medical History: Objective: * Vitals: Assessment: Plan: * Treatment: * * Electronic signature of Abelardo Packer MD, [phone] on 02/15/2025 at 04:51 PM EST Sign off status: PendingVisit Status:?CANCPHONE (Cancelled Phone) * Provider: Marisabel Packer ([facility])MD Date: 1 Generated for Printing/Faxing/eTransmitting on:?02/15/2025 04:51 PM EST
--- OUTSIDE RECORDS SUMMARY | 2025-02-11 05:01 | XMS_ITS | Continuity of Care Document ---
Author Organization [facility] Address [address] [place] [address] Phone Care Team Providers Care Outbound Sales Specialist Name Role Phone Derick Packer MD Attending Provider [phone] Anjana Weinstein Attending Provider Derick Packer MD Primary Care Provider Care Teams Patient Care Team Team Status: Active Member Role/Relationship Status Dates Derick Packer MD Primary Care Provider Active Visit Care Team Team Status: Inactive Member Role/Relationship Status Dates Derick Packer MD Attending Provider Active Sta rt: December 04, 2024 End: December 04, 2024 Patient Care Team Team Status: Inactive Member Role/Relationship Status Dates Oumou Weinstein MD Attending Provider Active Start : February 11, 2025 End: February 11, 2025Kareem Hurtado Care ProviderActiveStart: February 11, 2025 End: February 11, 2025 Chief Complaint and Reason for Visit Chief Complaint Admit Date Unknown December 04, 2024 1 :12pm RENAL 1 YR F/U February 11, 2025 9:32am Reason for Visit Admit Date CKD (chronic kidney disease) stage 3, GF R 30-59 ml/min February 11, 2025 9:32am Hypertensive chronic kidney disease with stage 1 through stage 4 chronic ki February 11, 2025 9:32am Hyperuricemia February 11, 2025 9:32am Microscopic hematuria February 11 9:32am Nephrolithiasis February 11, 2025 9:32am Secondary hyperparathyroidism January 252024 9:32am Type 2 diabetes 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 February 11, 2025 9:32am Allergies, Adverse Reactions, Alerts Allergen Type Severity Reaction Last Updated Verified Status povidone-iodine Allergy Unknown Rash February 10, 2025 1:47 pm Yes Active soap Allergy Unknown Rash February 10, 2025 1:47pm Yes Active Social History Smoking Status Status Start Date End Date Date of Observa tion Never smoked tobacco (finding) November 07, 2023 11:20am Observation Status Observation Response Date of Response Legal Sex Male (finding) Sex Assigned At BirthMaleJuly 1965 Family History Relationship Condition Age at Onset Recorded Date/T kelsi mother History of gastric bypass Unknown fatherMalignant neoplasm of oral cavityUnknownMalignant neoplasm of pharynx UnknownfatherMalignant neoplasmUnknownDeceasedUnknownmotherHeart diseaseUnknown Diabetes mellitusUnknownHypertensionUnknownsonHeart diseaseUnknownAneurysm UnknownDeceasedUnknown Problems Active Problems Problem Diagnosis/Recorded Date Onset Date Stat us Type 2 diabetes 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 November 06, 2023 2:33pm Unknown Active Secondary hyperparathyroidism November 06, 2023 2:3 4pm Unknown Active CKD (chronic kidney disease) stage 3, GFR 30-59 ml/min November 06, 2023 2:33pm Unknown Active Hypertensive chronic kidney disease with stage 1 through stage 4 chronic kidney disease, or unspecified chronic kidney disease November 06, 2023 2:33pm Unknown Active Hyperlipidemia May 05, 2020 9:32am Unknown Ac tive Hyperuricemia November 06, 2023 2:34pm Unknown Active Nephrolithiasis November 06, 2023 2:34pm Unknown Active Microscopic hematuria November 06, 2023 2:34pm Unkn own Active Medications Medication Status Dose Units Route Directions Qty Days Refills S tart Date Stop Date End Date Reason(s) Instructions Adherence Carvedilol 25 mg tablet Discontinued 25 MG PO Twi ce daily May 05, 2020 12:00amSept2023 10:12amHTNTizanidine 4 mg tablet Nlaoeu9FAGNNdueo at bedtimeMar2020 12:00ammuscle spasmsComplies with drug therapyHydrocodone-Acetaminophen 5-325 mg gwvxqtEclkehtrvxqj3WYEJHGm Directed as needed for PainMar 2020 12:00amSeptember 2023 10:13am Testosterone Cypionate 100 mg/mL eqoCgwufmhnaiba220YXGXHEGCX 2 [facility] 2020 12:00amSeptember 2023 10:18amLast taken 05/03/20Simvastatin 10 mg xwsgwxTtsjvqnrfhoz63IZGLPmfjw at bedtimeMem[facility] 2020 12:00amSeptember 2023 10:14amhyperlipidemiaAmitriptyline 50 mg kdduykUcyumintncdl988TCGPJitru at bedtimeMemorial [facility] 2020 12:00amSeptember 2023 10:12amGlimepiride 4 mg uzvyaiMnlctctwhphy7BFBQHsdyvZgelq 2020 12:00amSeptember 2023 10:13am DMIIDoxazosin 4 mg bfjjovQosraq0ALDFZrbjp dailyMemorial [facility] 2020 12:00amHTN Complies with drug therapyPioglitazone 30 mg prmedoEksljwgkgkjc02BZWSYiolfZtvft 2020 12:00amSeptember 2023 10:19amDMIIDapagliflozin Propanediol (Farxiga) 5 mg prixlqJwotswyqpflw8FMCBCxlwqInnue 2020 12:00amSeptember 2023 10:12amDM IIDulaglutide (Trulicity) 0.75 mg/0.5 mL pen injector Discontinued0.75MGSUBCUTevery weekMemorial [facility] 2020 12:00amSeptember 2023 10:13amDM IItakes on SaturdayBaclofen 10 mg SrjyfwOintbzrftowg30IGABKfqpr at bedtime as needed for Muscle SpasmMar 2020 12:00amSeptember 2023 10:12amTakes if zanaflex is unavailableCetirizine 10 mg QgyvmyFtrqcapuurup02XIFJ Daily at bedtimeMemorial [facility] 2020 12:00amSeptember 2023 10:12amallergy sx. Pioglitazone 30 mg syrvrcQhljpquxggyi14DANTMfxssSsntdejfw 12th, 2024 10:13am February 11, 2025 9:36amDMIIIrbesartan 300 mg xgelkiPimubk912WADMXrscq November 06, 2023 11:00pmComplies with drug therapyBumetanide 1 mg tablet Bmbceb4KUYMCutjzGzgxdmyec 11th, 2024 11:00pmComplies with drug therapyTrazodone 150 mg emfwwyFhmdur526ZWNAIpmnx at bedtimeSept2023 11:00pmComplies with drug therapyTamsulosin 0.4 mg capsuleActive0.4MGPODaily at bedtimeSept2023 11:00pmComplies with drug therapyDoxepin 10 mg uehlnrkPotycj75AUAT Dailypt2023 11:00pmComplies with drug therapyOxycodone- Acetaminophen 10-325 mg kfdfiiBmufwz7XISLAKbsjx 6 hours as hdwyfq1RhivtsycbNovember 06, 2023 11:00pmComplies with drug therapyOmeprazole 20 mg capsule,delayed release(DR/EC)Tbvbqkyfhxko70DZHCKdwci dailyNovember 06, 2023 11:00pmDece2024 9:35amTestosterone Cypionate 200 mg/mL ofkUcjyck804RKPQULRNI 2 WEEKS November 06, 2023 11:00pmComplies with drug therapyFerrous Sulfate 325 mg (65 mg iron) wqcwpdRevqcwapjunr1VMBHSWgrzv dailypt2023 11:00pmDe2024 9:35amFreeTextSi tablet Orally twice a day; Note: Source Status: Taking; Provider: Corinna Coello ( )Phentermine (Adipex-P) 37.5 mg mxzfoaBppyyo66.5MGPODailyNovember 06, 2023 11:00pmComplies with drug therapy Metoprolol Succinate 25 mg tablet extended release 24 djCyifbl53YDRGhxqdj February 11, 2025 12:00amComplies with drug therapyRosuvastatin 5 mg tablet Bcibgv5VWGBAaznmDnmsrymf 18th, 2025 12:00amComplies with drug therapy Procedures Procedure Date Performed Status Urine Culture December 04, 2024 completed Relevant Diagnostic Tests and/or Laboratory Data Microbiology Results Procedure Source Result Collection Date/Time Result Date/Time Result Comment Performing Site Urine Culture Urine, Clean-Voided Midstream No Growth 2 Days December 04, 2024 8:45am December 07, 2024 8:46am [facility] [id number] [address] [place] [id number] Vital Signs Vital Reading Result Reference Range Collection Date/Time Height 69 [in_i] February 11, 2025 9:93avGavqdp549.24 kgDecemb2024 9:33amHeart Rate77 /xfy87-234Curztyxn 18th, 2025 9:33amRespiratory rate16 /mob97-77Syzddfng 18th, 2025 9:33amOxygen saturation by Pulse funvlfgz03 %95-100February 11, 2025 9:33amBP Tifpebvw478 mm[Hg]100-140Dece2024 9:33amBP Okqnqzrqy61 mm[Hg]60-100Decemb2024 9:33amBMI (Body Mass Index)39.8 kg/s4Xlssgcgd2024 9:33am Advance Directives Advance Directive Response Recorded Date/ Time Advance Directives No September 16 2:32pm Insurance Providers Guarantor Aldo Mari Address [address] [place] [address]Vhglbou Info.Home Phone: Payer Group Member ID Coverage Type Subscriber Relationship to Subscriber Effective Date Expiration Date [employer] Id: [id number] F [place] Id: [id number] [address] [place] [address] Home Phone: Email: [id number] Id: [id number] [place] , M Id: [id number] [address] [place] [address] Home Phone: Email: [email or web address] Pay [employer] [id number] Encounters Encounter Location(s) Arrival/Admit Date Discharge/Departure Date Discharge/Departure Disposition Provider(s) Departed Referred -[facility] December 04, 2024 1:12pm December 04, 2024 1:13pm Discharged to home care or self care (routine discharge) Skyler Dugan MD Departed Physician/ Provider Office Visit -[facility] [place] February 11, 2025 9:32am February 11, 2025 10:00am Discharged to home care or self care (routine discharge) Oumou Weinstein MD Recent Diagnosis Onset Date Admit Date CKD (chronic kidney disease) stage 3, GFR 30-59 ml/min Unknown February 11, 2025 9:32am Hypertensive chronic kidney disease with stage 1 through stage 4 chronic ki Unknown February 11, 2025 9:32a m Hyperuricemia Unknown February 11, 025 9:32am Microscopic hematuria Unknown January 252024 9:32am Nephrolithiasis Unknown February 11, 025 9:32am Secondary hyperparathyroidism Unknown 2024 9:32am Type 2 diabetes 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 Unknown February 11, 2025 9:32am Assessments Diagnosis Onset Date Resolution Status Admit Date CKD (chronic kidney disease) stage 3, GF R 30-59 ml/min acuteDece2024 9:32amHypertensive chronic kidney disease with stage 1 through stage 4 chronic kiacuteDece2024 9:32amHyperuricemiaacute February 11, 2025 9:32amMicroscopic hematuriaacutece2024 9:32am NephrolithiasisacuteDece2024 9:32amSecondary hyperparathyroidismacute February 11, 2025 9:32amType 2 diabetes mellitus with diabetic chronic kidney diseaseacuteFebruary 11, 2025 9:32am Plan of Treatment Author Oumou Weinstein [facility] 2024 10:51amHe has a CKD likely due to the [...] to slow down the progression of CKD. : He has a mildly elevated free light chain ratio likely due to the CKD but unremarkable SPEP, serum and urine immunofixatio I have advised him??to continue work with PCP for DM management. He currently takes irbesartan for renal protection. I will continue that.?? He reported that he was on Farxiga before but was not able to afford it due to the high cost. I also explained to him due to the hyperkalemia in the past with the spironolactone I will avoid to prescribe him Kerendia His blood pressure is controlled and he appears to be euvolemic. Advised him continue current antihypertensive medication and diuretic. Advised fluid restriction 50 ounces a day. Advised him to monitor blood pressure at home call office if stays above 140 over 90 mmHg or if he gains 2 pounds 24-hour 5 pounds in 1 week. He has a secondary hyperparathyroidism due to the CKD but his calcium and vitamin D are within the goal. He has a low phosphorus. He has intermittent microscopic hematuria likely due to the nephrolithiasis He denies any recent passage of the kidney stones. Advised him to adequately hydrate himself. Advised also continue follow with urology. Hyperuricemia due to the CKD but denies any recent gout flare. Will continue to monitor without any medication. Future Tests Future scheduled test information is unavailable Pending Tests Test Name Ordered Date Scheduled Date Renal Function Panel February 11, 2025 9:54am 1 Years Future Visits Future appointment information is unavailable Future Procedures Procedure Name Ordered Date Scheduled Date Dipstick and Microscopic February 11, 2025 9:5 3am 1 Years Hemogram CBC Without Diff February 11, 2025 9: 53am 1 Years Magnesium February 11, 2025 9:53am 1 Yea rs Protein Creat Ratio Ur Random February 11 9:54am 1 Years Parathyroid Hormone Intact February 11, 2025 9 :53am 1 Years Uric Acid February 11, 2025 9:54am 1 Yea rs Vitamin D 25 Hydroxy Total February 11, 2025 9 :54am 1 Years Future Medications Future medication information is unavailable Patient Instructions Patient instructions are unavailable
--- NOTE | 2025-02-15 | XR_ITS ---
The [address] [address] Patient Name: SUKHDEEP SIMENTAL MRN: [id number] date: 1965 Sex: M Assigned Patient Location: [facility] Current Patient Location: Accession/Order Number: [id number] Exam Date: 02/15/2025 16:55 Report Date: 02/16/2025 10:46 At the request of: BLAYNE ISABEL MD Procedure: XR sacrum coccyx min 2V SACRUM AND COCCYX -3 views CLINICAL HISTORY: Coccydynia since fall one month ago. M53.3 COMPARISON: CT 04/02/2020 Lateral as well as AP views in upward and downward projection were obtained. There is osteopenia. There is prior laminectomy and fusion following the lower imaged lumbar spine. No fracture or displacement is identified. The SI joints and sacral foramen appear intact. No soft tissue abnormalities are seen. XR/XR sacrum coccyx min 2V IMPRESSION: NO ACUTE BONY FINDINGS. Impression dictated by: Erlinda Sadler M.D. 02/16/2025 10:46 AM Dictation Location: [place] [address] Electronically authenticated by: [id number] Y Date: 02/16/2025 10:46
--- OUTSIDE RECORDS SUMMARY | 2025-02-15 16:52 | XMS_ITS | Clinical Summary ---
Author Organization [facility] Healthcare Address [address] [place] [address] Care Team Providers Care Loom Cleaner Name Role Phone Derick Packer MD Primary Care Provider [phone] Allergies No known active allergies Medications MedicationSigDispense QuantityRefillsLast FilledStart DateEnd DateStatus Toprol XL 25 MG 24 hr tablet 1 (one) time each day at the same time5Active irbesartan (Avapro) 150 MG tablet 1 (one) time each day at the same timeActive bumetanide (Bumex) 1 MG tablet TAKE 1 TABLET BY MOUTH ONCE DAILY; Duration: 30Active tamsulosin (Flomax) 0.4 MG 24 hr capsule TAKE 1 CAPSULE BY MOUTH DAILY; Duration: 30Active traZODone (Desyrel) 150 MG tablet TAKE 1 TABLET BY MOUTH AT BEDTIME; Duration: 30Active tiZANidine (Zanaflex) 4 MG tablet TAKE 2 TABLETS BY MOUTH AT BEDTIME; Duration: 30Active oxyCODONE-acetaminophen (Percocet) 10-325 MG tablet TAKE 1 TABLET BY MOUTH EVERY 6 HOURS NEEDED *MUST LAST 30 DAYS*; Duration: 30 5Active Crestor 5 MG tablet 1 (one) time each day at the same time5Active oxybutynin XL (Ditropan-XL) 5 MG 24 hr tablet Take 5 mg by mouth in the morning and 5 mg before bedtime.5Active phenazopyridine (Pyridium) 100 MG tablet Take 100 mg by mouth in the morning and 100 mg before bedtime.5Active cefuroxime (Ceftin) 250 MG tablet Take 250 mg by mouth in the morning and 250 mg before bedtime.5Active Encounters DateTypeDepartmentCare KectBxicnzkmmxl31/17/2025External Result Encounter [place] [id number] [place] [address] Luis Larose NP 01/28/2025 8:45 AM ESTOffice Visit [place] [address] [place] [address] Luis Larose, KAYLEN History of total knee replacement, left (Primary Dx); Left knee pain, unspecified xabhuimhtp80/04/2025 8:40 AM ESTAncillary Procedure [place] [address] [facility] [place] [address] 01/28/2025amboo flowsheet [place] [address] [place] [address] Luis Larose NP 01/28/2025Travelfrom Last 3 Months Social History Tobacco UseTypesPacks/DayYears UsedDateSmoking Tobacco: NeverSmokeless Tobacco: Never Tobacco Cessation:Counseling Given: Not Answered Sex and Gender InformationValueDate RecordedSex Assigned at BirthNot on file Legal ImsOixk1205/09/2022 6:40 PM EDTGender IdentityNot on fileSexual Orientation Not on file Last Filed Vital Signs Vital SignReadingTime TakenCommentsBlood Fssidpzd070/8203 12:00 PM EST Pulse--Temperature--Respiratory Rate--Oxygen Saturation--Inhaled Oxygen Concentration--Xtcnin222 kg (312 lb)12/17/2019 12:00 PM XXSIcvtqw949.3 cm (5' 9 )12/22/2020 12:00 PM EDTBody Mass Index46.0712/17/2019 12:00 PM EDT Plan of Treatment DateTypeDepartmentCare Team (Latest Contact Info)Kzcdchxenjg34/30/2025 9:00 AM ESTOffice Visit [place] [address] [place] [address] Jr. Joe Mcfarland, DO [address] [facility] [address] [place] [address] Procedures Procedure NamePriorityDate/TimeAssociated DiagnosisCommentsNM BONE AND OR JOINT 3 PHASE 733797104/13/2024 11:24 AM EST XR KNEE 1-2 VIEWS AYCOLsybace43/04/2025 8:35 AM EST Left knee pain, unspecified chronicity from Last 3 Months Results * NM BONE AND OR JOINT 3 PHASE [id number] (02/10/2025 11:24 AM EST)Anatomical Region LateralityModalityRadiographic ImagingSpecimen (Source)Anatomical Location / LateralityCollection Method / VolumeCollection TimeReceived Time02/10/2025 11:24 AM EST Narrative 02/10/2025 11:23 AM EST THIS EXAM WAS PERFORMED AT [facility] BONE SCAN THREE PHASE HISTORY: Bilateral knee arthroplasties, left knee weakness COMPARISON: None available for viewing TECHNIQUE: The patient received an intravenous injection of 25 mCi Tc-99m MDP. A vascular flow study was performed over the bilateral knees during the injection. Additional blood pool images were obtained after 15 minutes. Whole body planar images were obtained 3 hours after the injection. ?? Additional planar views of the bilateral lower extremities were obtained. FINDINGS: Angiographic phase: Nondiagnostic. Blood pool phase: Physiological distribution of the radiotracer. ??Symmetric activity without focalabnormality. Delayed phase: There is generalized increased isotope within the right proximal tibia. Given the relatively diffuse activity is probably related to stress reaction rather than a discrete focal area of loosening. Within the left medial compartment there is a more focal area of intense activity which could represent an early finding of loosening. Degenerative changes involving the left ankle. Background activity: Normal. ?? IMPRESSION: Generalized activity involving the right-sided tibial stem component probably related to stress reaction and/or history of multiple replacements. Subtle area of increased activity in the medial compartment tibial plateau left knee which could represent early finding of loosening. Approved by Amaya York MD ??on 02/10/2025 10:54 AM Karthik Lorenz MD have personally reviewed the image(s) and agree with and/or edited the report Finalized by Karthik Singer MD on 02/10/2025 11:23 AM The copy-to physician of this order is DERICK Clark Procedure Note Radiology, Radiologist, - 02/10/2025 THIS EXAM WAS PERFORMED AT [facility] BONE SCAN THREE PHASE HISTORY: Bilateral knee arthroplasties, left knee weakness COMPARISON: None available for viewing TECHNIQUE: The patient received an intravenous injection of 25 mCi Tc-99mMDP. A vascular flow study was performed over the bilateral knees duringthe injection. Additional blood pool images were obtained after 15minutes. Whole body planar images were obtained 3 hours after theinjection. Additional planar views of the bilateral lower extremities wereobtained. FINDINGS: Angiographic phase: Nondiagnostic. Blood pool phase: Physiological distribution of the radiotracer.Symmetric activity without focal abnormality. Delayed phase: There is generalized increased isotope within the rightproximal tibia. Given the relatively diffuse activity is probably relatedto stress reaction rather than a discrete focal area of loosening. Withinthe left medial compartment there is a more focal area of intense activitywhich could represent an early finding of loosening. Degenerative changesinvolving the left ankle. Background activity: Normal. IMPRESSION: Generalized activity involving the right-sided tibial stem componentprobably related to stress reaction and/or history of multiplereplacements. Subtle area of increased activity in the medial compartment tibial plateauleft knee which could represent early finding of loosening. Approved by Amaya York MD on 02/10/2025 10:54 AM IKarthik MD have personally reviewed the image(s) and agree withand/or edited the report Finalized by Karthik Singer MD on 02/10/2025 11:23 AM The copy-to physician of this order is DERICK Clark Authorizing ProviderResult TypeResult StatusWood County Hospitalt [place] Larose NPIMG XR PROCEDURES Final Result * XR knee 1 or 2 views left (01/28/2025 8:35 AM EST)Anatomical RegionLaterality ModalityLower Extremities, KneeLeftRadiographic ImagingSpecimen (Source) Anatomical Location / LateralityCollection Method / VolumeCollection Time Received Time Narrative 01/28/2025 12:39 PM EST Imaging Result: Standing AP and LAT of left knee showed surgical position and alignment of prosthetic components in similar position and alignment compared to previous xray of left knee. There could some cystic change on the medial aspect of tibia but this appears similar to previous xrays as well. ??The alignment appeared to be anatomic. ??There was no evidence of accelerated or asymmetric wear to the patellar button or tibial tray. ??There was no evidence of fracture and/or dislocation. Impression: Stable LT total knee replacement. Luis Larose HERB GROWER-CASH REGISTER OPERATOR Authorizing ProviderResult TypeResult StatusLuis Larose NPIMG XR PROCEDURES Final Result from Last 3 Months Insurance Care Teams Team MemberRelationshipSpecialtyStart DateEnd Date Derick Packer MD [address] [place] [address] PCP - GeneralFamily Hiqjrvlw60/4/25
--- OUTSIDE RECORDS SUMMARY | 2025-02-15 16:52 | XMS_ITS | Encounter Summary ---
Author Organization [facility] Healthcare Address [address] [facility] [place] [address] Care Team Providers Care Biofuels Product Manager Name Role Phone Derick Packer MD Primary Care Provider [phone] Encounter Details DateTypeDepartmentCare Team (Latest Contact Info)Dosgelmjtnu61/17/2025External Result Encounter [facility] [address] [place] [address] Luis Larose, LEGAL SECRETARY [address] [place] [address] Social History Tobacco UseTypesPacks/DayYears UsedDateSmoking Tobacco: NeverSmokeless Tobacco: NeverSex and Gender InformationValueDate RecordedSex Assigned at BirthNot on fileLegal GiuPcvd6105/09/2022 6:40 PM EDTGender IdentityNot on fileSexual OrientationNot on filedocumented as of this encounter Plan of Treatment DateTypeDest. [facility] hospitalCare Team (Latest Contact Info)Cfwdtdkdjkj56/30/2025 9:00 AM ESTOffice Visit [facility] [address] [place] [address] Jr. Joe Mcfarland, DO [address] [facility] [address] [place] [address] documented as of this encounter Procedures Procedure NamePriorityDate/TimeAssociated DiagnosisCommentsNM BONE AND OR JOINT 3 PHASE 881070804/13/2024 11:24 AM EST documented in this encounter Results * NM BONE AND OR JOINT 3 PHASE [id number] (02/10/2025 11:24 AM EST)Anatomical Region LateralityModalityRadiographic ImagingSpecimen (Source)Anatomical Location / LateralityCollection Method / VolumeCollection TimeReceived Time02/10/2025 11:24 AM EST Narrative 02/10/2025 11:23 AM EST THIS EXAM WAS PERFORMED AT [facility] BONE SCAN THREE PHASE HISTORY: Bilateral knee [...] Amaya York MD ??on 02/10/2025 10:54 AM IKarthik MD have personally reviewed the image(s) and agree with and/or edited the report Finalized by Karthik Singer MD on 02/10/2025 11:23 AM The copy-to physician of this order is DERICK Clark Procedure Note Radiology, Radiologist, - 02/10/2025 THIS EXAM WAS PERFORMED AT [facility] BONE SCAN THREE PHASE HISTORY: Bilateral knee [...] order is DERICK Clark Authorizing ProviderResult TypeResult StatusGrant [place] Larose NPIMG XR PROCEDURES Final Result documented in this encounter Visit Diagnoses Not on filedocumented in this encounter Care Teams Team MemberRelationshipSpecialtyStart DateEnd Date Derick Packer MD [address] [place] [address] PCP - GeneralFamily Jikzxelm30/4/25documented as of this encounter
--- OUTSIDE RECORDS SUMMARY | 2025-02-15 16:52 | XMS_ITS | Clinical Summary ---
Author Organization [facility] Address [address] [place] [address] Care Team Providers Care Ski Patrol Name Role Phone Derick Packer MD Primary Care Provider [phone] Allergies No known active allergies Medications MedicationSigDispense QuantityRefillsLast FilledStart DateEnd DateStatus doxazosin (CARDURA) 4 mg tablet Take 4 mg by mouth.02/15/2021ctive irbesartan (AVAPRO) 300 mg tablet 1/2 tablet Orally Once a day for 60 days02/15/2020Active pioglitazone (ACTOS) 30 mg tablet 10/31/2022ctive bumetanide (BUMEX) 1 mg tablet Take 1 tablet by mouth once daily.11/07/2021ctive tamsulosin (FLOMAX) 0.4 mg Take 1 capsule by mouth once daily.03/19/2022ctive tizanidine HCl (ZANAFLEX ORAL) daily at bedtime.Active traZODone (DESYREL) 150 mg tablet 10/31/2022ctive simvastatin (ZOCOR) 10 mg tablet Take 1 tablet by mouth once daily.05/24/2016Active testosterone cypionate (DEPO-TESTOSTERONE) 100 mg/mL injection INJECT 1.5 ML INTO THE MUSCLE EVERY 2 WEEKS AKCKRAOP39/11/2021ctive metoclopramide HCl (REGLAN) 10 mg tablet Take 10 mg by mouth as needed.Active FEROSUL 325 mg (65 mg iron) tablet Take 1 tablet by mouth every 12 (twelve) hours.10/31/2022ctive hydrOXYzine HCl (ATARAX) 25 mg tablet TAKE 1 TABLET BY MOUTH FOUR TIMES DAILY NEEDED MUST LAST 30 DAYS09/01/2023 Active omeprazole (PRILOSEC) 20 mg capsule Indications:Pre-op examinationTake 1 capsule by mouth twice daily.11/21/2022 Active naloxone 4 mg/actuation nasal spray (NARCAN) Use 1 spray in one nostril as needed for overdose. May repeat every 2 to 3 min in alternating nostrils until medical assistance is available 2 Each 12/20/2022ctive Active Problems ProblemNoted DateDiagnosed DateObesity, Class III, BMI >= 4010Lumbar adjacent segment disease with cewfhujntiitmwqop40/13/2023Status post lumbar spinal wofbek5612/07/2022Stage 3 chronic kidney zfdziih18IDA (iron deficiency anemia)12/07/2022HLD (hyperlipidemia)12/07/2022PH (benign prostatic hyperplasia)12/07/2022Essential xjouoo38History of pulmonary dbnaoclj79 Assessment & Plan (11/21/2022 11:30 AM EDT): Assessment: stable. Resolved July 2021, completed course of Eliquis. No thinners. Tysqagr70astroesophageal reflux ejxgljn95 Assessment & Plan (11/21/2022 11:29 AM EDT): Assessment: Managed and stable with current medication. Denies difficulty swallowing or any bleeding. Morbid Assessment & Plan (11/21/2022 11:30 AM EDT): Assessment: Body mass index is 40.02 kg/m??. ELIDA (obstructive sleep apnea) Assessment & Plan (11/21/2022 11:29 AM EDT): Assessment: does not use CPAP Essential fwqwavbwxxnf67 Assessment & Plan (11/21/2022 11:28 AM EDT): Assessment: compliant with current medications Followed by PCP Last 5 Encounter BP Readings: Date: BP: 11/21/2022 147/82 11/05/2022 156/84 Type 2 diabetes mellitus without piqutdlbwrtps72 Assessment & Plan (11/23/2022 8:28 AM EDT): Assessment: Currently taking actos Follows with PCP Hemoglobin A1C (%) Date Value 11/21/2022 5.5 Resolved Problems ProblemNoted DateDiagnosed DateResolved DateSecondary hyperparathyroidism orneal edema, loiecmmrfqh97 Herpes simplex zngayymmlwuud70 Family History Medical HistoryRelationCommentsCancerFatherDetached RetinaMaternal Uncle HypertensionMaternal UncleDiabetesMotherRelationStatusCommentsFatherMaternal UncleMother Social History Tobacco UseTypesPacks/DayYears UsedDateSmoking Tobacco: NeverSmokeless Tobacco: Never Tobacco Cessation:Counseling Given: Not Answered Alcohol UseStandard Drinks/WeekCommentsNo0 (1 standard drink = 0.6 oz pure alcohol)Area Deprivation IndexAnswerDate RecordedNational Score (1-100), lower number is lower skcm605511/05/2022State Score (1-10), lower number is lower risk9 3Data from: https://www.neighborhoodatlas.[facility].edu/. Last address used for jaamwwnenqf[address]11/05/2022Sex and Gender Information ValueDate RecordedSex Assigned at BirthNot on fileLegal NoqSrmj5311/06/2013 8:37 AM EDTGender IdentityNot on fileSexual OrientationNot on file Last Filed Vital Signs Vital SignReadingTime TakenCommentsBlood Nvohqlxc446/9403/25/2023 2:13 PM EST Nbzjo411803/25/2023 2:13 PM MWOQerfqxzkcuo30 ??C (98.6 ??F)02/07/2023 2:37 PM EST Respiratory Nyju2250 11:56 AM EDTOxygen Gyoelkizsz03%03/25/2023 2:13 PM ESTInhaled Oxygen Concentration--Jrhzck269.9 kg (271 lb)02/07/2023 2:37 PM EST Sqfpie773.3 cm (5' 9 )12/20/2022 2:26 PM EDTBody Mass Index40.021 2:26 PM EDT Plan of Treatment Health MaintenanceDue DateLast DoneCommentsDiabetic Foot Exam09/10/1973Dilated Retinal Exam09/10/1973Urine Albumin:Creatinine Ratio09/10/1973Annual PCP Team Chronic Disease Visit09/10/1981Depression Nmotskaht74/17/1982HIV Screening 09/10/1981Hepatitis C Ofeuydjqx49/17/1982LDL Nnjsxadbsgt65/17/1982DTaP,Tdap,Td Vaccine (1 - Tdap)09/10/1982Pneumococcal Vaccine: 50+ (1 of 2 - PCV)09/10/1982CT Jpjjlwoaibwr41/17/2009Cologuard (FIT-DNA)09/10/20089500Ixodcnetxfl83/17/2009 Colorectal Cancer Hiyvmshpf93/17/2009Fecal Occult Blood09/10/2008Sigmoidoscopy 09/10/2008RSV Vaccine (1 - Risk 50-74 years 1-dose series)09/10/2013Shingrix Vaccine (1 of 2)09/10/20131696DiP5E37/27//, 12/01/2021, 07/17/2021, Additional history existsSerum Xntfqhoqkp72, 12/10/2022, 12/09/2022, Additional history existsCovid-19 Vaccine (1 - season) 2024Influenza Vaccine (#1)503/4Prostate Cancer Screening Dnfuqdgzug13 Medical Devices ImplantedTypeAreaManufacturerDevice IdentifierShelf Expiration DateModel / Serial / LotVitoss Ba2x Bioactive Bone Graft Substitute 5.0cub Cm [facility]planted:Q[facility]: Spine - Lumbar [id number] / / [id number] Tritanium 6d [id number] Spinal Sterile Latex Free Lumbar Posterior - [id number] Implanted:Qty: 1 on 12/07/2022 at [facility]/A: Spine - Lumbar [place] [id number] / / [id number] Tritanium 6d [id number] Spinal Sterile Latex Free Lumbar Posterior - [id number] [facility]: Spine - Lumbar [place] [id number] / / [id number] Darby 3 Titanium Set Merlyn Spine - [id number] Implanted:Qty: 10 on 12/07/2022 at [facility]/A: Spine - Lumbar [place] [id number] / / Screw Darby 3 Gloria 6.5mm 45mm Bone Polyaxial Nonsterile Spine - [id number] Implanted:Qty: 2 on 12/07/2022 at [facility]/A: Spine - Lumbar [place] [id number] / / Screw Darby 3 Gloria 6.5mm 50mm Bone Polyaxial Nonsterile Spine - [id number] Implanted:Qty: 2 on 12/07/2022 at [facility]/A: Spine - Lumbar [place] [id number] / / Procedures Procedure NamePriorityDate/TimeAssociated DiagnosisCommentsBASIC METABOLIC PANEL Iirdjbv7412/11/2022 4:50 AM EDT HEMOGLOBIN E9BDgyuqgk66/27/2023 11:39 AM EDT Pre-op examination from Last 3 Months or Most Recently Relevant to Health Maintenance Results * (ABNORMAL) BASIC METABOLIC PNL (12/11/2022 4:50 AM EDT)ComponentValueRef Range Test MethodAnalysis TimePerformed AtPathologist UmrhjdhkoBburleu0820 - 99 mg/dL12/11/2022 6:30 AM EDTLUTHERAN LABORATORYComment: The [place] Diabetes Association (ADA) provides guidance for cutoff values for fasting glucose andrandom glucose. The ADA defines fasting as no [...] [place] Diabetes Association. Diabetes Care. 2016.39(Suppl 1). RNR600 - 24 mg/dL12/11/2022 6:30 AM EDTLUTHERAN LABORATORYCreatinine1.170.73 - 1.22 mg/dL12/11/2022 6:30 AM EDTLUTHERAN IBLNJDSFQZFzqzuk754150 - 144 mmol/L 12/11/2022 6:30 AM EDTLUTHERAN LABORATORYPotassium4.83.7 - 5.1 mmol/L1 6:30 AM EDTLUTHERAN IGTDCXDDGGHrylfzhc340(H)97 - 105 mmol/L1 6:30 AM EDTLUTHERAN YANXXFWGPJOG90589 - 30 mmol/L1 6:30 AM EDTLUTHERAN LABORATORYAnion Gap8(L)9 - 18 mmol/L1 6:30 AM EDTLUTHERAN LABORATORY Calcium, Total8.78.5 - 10.2 mg/dL12/11/2022 6:30 AM EDTLUTHERAN LABORATORY Estimated Glomerular Filtration Rate72>=60 mL/min/1.73m 12/11/2022 6:30 AM EDTLUTHERAN LABORATORYComment:Estimated Glomerular Filtration Rate (eGFR) is calculated using the 2020 CKD-EPI creatinine equation. This equation utilizes serum creatinine, sex, and age as parameters. The creatinine assay has traceable calibration to isotope dilution-mass spectrometry. Refer to KDIGO guidelines for clinical interpretation. In patients with unstable renal function, e.g. those with acute kidney injury, the eGFRmay not accurately reflect actual GFR.Specimen (Source)Anatomical Location / LateralityCollection Method / VolumeCollection TimeReceived TimeBloodBLOOD SPECIMEN / Unknown Venipuncture / Ijgdonh3012/11/2022 4:50 AM EDT1 5:59 AM EDT Narrative Authorizing ProviderResult TypeResult StatusIvandereje Tim PROP ATTENDANT.CNPLABORATORY Final ResultPerforming OrganizationAddressCity/State/ZIP CodePhone Number [facility] [address] [address], * HGB A1C (11/21/2022 11:39 AM EDT)ComponentValueRef RangeTest MethodAnalysis TimePerformed AtPathologist SignatureHemoglobin A1C5.54.3 - 5.6 %11/22/2022 6:07 AM [facility] LABComment:[place] Diabetes Association guidelines indicate that patients with HgbA1c in the range 5.7- 6.4% are at increased risk for development of diabetes, and intervention by lifestyle modification may be beneficial. HgbA1c greater or equal to 6.5% is considered diagnostic of diabetes.Estimated Average Xcsymck431gh/dL11/22/2022 6:07 AM [facility] LABComment:eAG: (Estimated average glucose) is a calculated value from HgbA1c and is administrative representative of the aver age blood glucose level in the last 2-3 month period.Specimen (Source) Anatomical Location / LateralityCollection Method / VolumeCollection Time Received TimeBloodBLOOD SPECIMEN / UnknownVenipuncture / Bigdgyp9811/21/2022 11:39 AM EDT11/21/2022 11:39 AM EDT Narrative Authorizing ProviderResult TypeResult StatusMichael Desean PROP ATTENDANT.CNPLABORATORY Final ResultPerforming OrganizationAddressCity/State/ZIP CodePhone Number [facility] [address] [address], from Last 3 Months or Most Recently Relevant to Health Maintenance Insurance * Guarantor: Aldo SimentalAccount TypeRelation to PatientDate of BirthPhoneBilling AddressPersonal/KeoehjOlfi50/17/1966 [facility] [place] [address] Care Teams Team MemberRelationshipSpecialtyStart DateEnd Derick Packer MD PCP - GeneralFamily Medicine11/06/13
--- OUTSIDE RECORDS SUMMARY | 2025-02-15 16:52 | XMS_ITS | Clinical Summary ---
Author Organization [facility] Address [address] [place] [address] Care Team Providers Care Employee Benefits Director Name Role Phone Derick Packer MD Primary Care Provider [phone] Allergies Active AllergyReactionsCriticalityNoted DateCommentsPovidone IodineRashLow 01/08/2020 Medications MedicationSigDispense QuantityRefillsLast FilledStart DateEnd DateStatus cetirizine 10 MG tablet Take 10 mg by mouth at bedtime.12/12/2019Active carveDILOL (Coreg) 25 MG tablet Active irbesartan (Avapro) 300 MG tablet 1 tabletActive amitriptyline 50 MG tablet 1-3 tablet at bedtimeActive amLODIPine 10 MG tablet Take 5 mg by mouth daily.12/12/2019Active Dulaglutide (Trulicity) 0.75 MG/0.5ML Solution Pen-injector injection as directedActive Dapagliflozin Propanediol (Farxiga) 5 MG tablet 1 tabletActive gliMEPIride 4 MG tablet Take 4 mg by mouth daily.12/12/2019Active pioglitazone 30 MG tablet Take 30 mg by mouth daily.12/12/2019Active simvastatin 10 MG tablet 1 tablet in the eveningActive tiZANidine (Zanaflex) 4 MG tablet Every 8 hours. Only taking NEEDEDActive oxybutynin 5 MG tablet Take 5 mg by mouth 2 times daily.Active hydroCHLOROthiazide 25 MG tablet Indications:Essential hypertension,Edema, unspecified typeTAKE 1 TABLET BY MOUTH DAILY 90 tablet 1Active Active Problems ProblemNoted DateDiagnosed JwbzPrpnu70/08/2020Type 2 diabetes mellitus without jppndhlrzcsiv68/08/2020Essential ztugozguahal99/08/2020body mass index of 40.0-49.9104/04/2019 Social History Tobacco UseTypesPacks/DayYears UsedDateSmoking Tobacco: NeverSmokeless Tobacco: NeverAlcohol UseStandard Drinks/WeekCommentsNever0 (1 standard drink = 0.6 oz pure alcohol)AUDIT-CAnswerDate RecordedQ1: How often do you have a drink containing alcohol?Never02/02/2020Average Number of DrinksNot on file02/02/2020 Frequency of Binge DrinkingNot on file02/02/2020Sex and Gender InformationValue Date RecordedSex Assigned at BirthNot on fileLegal QziYbiv23/27/2020 11:39 AM EDTGender IdentityNot on fileSexual OrientationNot on file Last Filed Vital Signs Vital SignReadingTime TakenCommentsBlood Iifwzdpl122/8803/29/2020 1:28 PM EST Lywwa381403/29/2020 1:28 PM IOUZrjxrsawzxu39.9 ??C (96.7 ??F)01/08/2020 2:04 PM ESTRespiratory Cvwp563303/29/2020 1:28 PM ESTOxygen Ofibkpuhqe51%03/29/2020 1:28 PM ESTInhaled Oxygen Concentration--Mzfncd447.3 kg (329 lb 3.2 oz)03/29/2020 1:28 PM WKJSsfrcv882.3 cm (5' 9 )03/29/2020 1:28 PM ESTBody Mass Index48.61 03/29/2020 1:28 PM EST Plan of Treatment Health MaintenanceDue DateLast DoneCommentsHEPATITIS C VIRUS GNHHIOOZU74/17/1966 MPSCFKF03 1963HIV SCREENING YWENZMWVZG41/17/1979TDAP (ADULT)09/10/1982LIPID NPMTWWVJH78/17/2004COLORECTAL CANCER SCREENING RPACTUAHPZ70/17/2009PNEUMOCOCCAL VACCINE SERIES (1 of 1 - PCV)09/10/2013ZOSTER (SHINGLES) VACCINE (1 of 2) 09/10/2013PROSTATE CANCER SCREENING OSNFBBGWTT51/17/2019COVID-19 VACCINE (1 - 2024- season)2024INFLUENZA VACCINE (#1)2024RSV VACCINE (1 - 1-dose 75+ series)09/10/2038HEP B VACCINEAged OutNo longer eligible based on patient's age to complete this topic Insurance Care Teams Team MemberRelationshipSpecialtyStart DateEnd Derick Packer MD PCP - GeneralFamily Hmgkponb87/13/20
--- OUTSIDE RECORDS SUMMARY | 2025-02-15 16:52 | XMS_ITS | Clinical Summary ---
Author Organization [facility] Address [address], [address] [place] [address] Care Team Providers Care Offshore Diver Name Role Phone Derick Packer MD Primary Care Provider [phone] Allergies Active AllergyReactionsCriticalityNoted JjoqVkncpvrsGgonwgvqgrssmMrd27/28/2021 PivhwfGktmFun56/14/2019 Topical iodine Povidone-EvrhkmRxsoWit71/02/2019 Medications MedicationSigDispense QuantityRefillsLast FilledStart DateEnd DateStatus tiZANidine (ZANAFLEX) 4 MG tablet 4 mg 1-2 every night05/05/2020ctive simvastatin (ZOCOR) 10 MG tablet Simvastatin Active 10 MG PO Daily at bedtime May 05, 2020 11:40am05/05/2020 Active doxazosin (CARDURA) 4 MG tablet Take 4 mg by mouth nightlyActive irbesartan (AVAPRO) 300 MG tablet Take 300 mg by mouth nightlyActive traZODone (DESYREL) 50 MG tablet Take 50 mg by mouth nightlyActive Cetirizine HCl (ZYRTEC ALLERGY PO) Take 15 mg by mouth dailyActive tamsulosin (FLOMAX) 0.4 MG capsule Take 0.4 mg by mouth dailyActive pantoprazole (PROTONIX) 40 MG tablet TAKE 1 TABLET BY MOUTH EVERY DAY05/15/2021ctive metoprolol tartrate (LOPRESSOR) 25 MG tablet Take 1 tablet by mouth 2 times daily 60 tablet 05/25/2021ctive apixaban (ELIQUIS) 5 MG TABS tablet Take 2 tablets by mouth 2 times daily for 12 doses 12 tablet 07/18/2021ctive indomethacin (INDOCIN) 50 mg capsule TAKE 1 CAPSULE BY MOUTH THREE TIMES DAILY NEEDED FOR PAIN07/10/2021ctive pioglitazone (ACTOS) 30 MG tablet TAKE 1 TABLET BY MOUTH ONCE DAILY07/10/2021ctive glimepiride (AMARYL) 4 MG tablet TAKE 1 TABLET BY MOUTH EVERY DAY07/10/2021ctive ondansetron (ZOFRAN) 4 MG tablet Indications:Diabetes mellitus type 2 in obese,Hypertension, unspecified type, Obesity, Class III, BMI 40-49.9 (morbid obesity) (HCC),Recurrent pulmonary emboli (HCC),History of kidney stones,Chronic knee pain 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,S/P laparoscopic sleeve gastrectomyTake 1 tablet by mouth every 8 hours as needed for Nausea or Vomiting 30 tablet ctive famotidine (PEPCID) 20 MG tablet Indications:Diabetes mellitus type 2 in obese,Hypertension, unspecified type, Obesity, Class III, BMI 40-49.9 (morbid obesity) (HCC),Recurrent pulmonary emboli (HCC),History of kidney stones,Chronic 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 Post -op Bariatric Summary Procedure: sleeve Surgeon:Dr. Newsome HT: 5 Date Weight Labs Ordered Labs Resulted Notes Initial Wt 06-22-20 333 Day of Surgery 05-24-21 343 1 Wk Post-op 06-02-21 325 5 Wk Post-op ? 3 Mon Post-op 08-18-21 307 ? ? 6 Mon Post-op ? 9 Mon Post-op ? 1 Year Post-op ? Annual ? ? Starting at 1 Wk Post-op: Bariatric Multivitamin with iron and Calcium ProblemNoted DateDiagnosed DateAcute renal /24/2022Obesity, Class III, BMI 40-49.9 (morbid obesity)2Recurrent pulmonary gyohuj3307/16/2021 Pulmonary embolism with acute cor ldylwehwx63/22/2022S/P laparoscopic sleeve ivokjidpjlw98/30/2022Dyspnea and respiratory vswfmsujeto06/01/2021Tachycardia 01/25/2021Type 2 diabetes mellitus with fvrsuok9612/28/2020 Overview (11/25/2024): Problem List Diagnosis Replacement Utility 11/26/2023 Replacing diagnoses that were inactivated after the 11/25 regulatory import HypertensionHistory of pulmonary embolismHistory of kidney stonesChronic knee pain 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Chronic low back pain Resolved Problems ProblemNoted DateDiagnosed DateResolved DateMorbid obesity with BMI of 50.0- 59.9, adult Family History Medical HistoryRelationNameCommentsCancerFatherbone and jaw cancerBreast Cancer Maternal GrandmotherRelationNameStatusCommentsFatherDeceasedMaternal Grandmother Social History Tobacco UseTypesPacks/DayYears UsedDateSmoking Tobacco: NeverSmokeless Tobacco: NeverAlcohol UseStandard Drinks/WeekCommentsNever0 (1 standard drink = 0.6 oz pure alcohol)AUDIT-CAnswerDate RecordedFrequency of Alcohol ConsumptionNever 04/11/2019Average Number of DrinksNot on file04/11/2019Frequency of Binge DrinkingNot on file04/11/2019Sex and Gender InformationValueDate RecordedSex Assigned at BirthNot on fileLegal PpwPlhm83/04/2016 10:06 AM EDTGender Identity Not on fileSexual OrientationNot on file Last Filed Vital Signs Vital SignReadingTime TakenCommentsBlood Iwpaqxca348/75008/18/2021 3:30 PM EDT Rpjsd55009/24/2022 3:30 PM PNNWipvhndcaed30.3 ??C (97.4 ??F)07/18/2021 4:45 PM EDTRespiratory Xwmv941707/26/2021 2:29 PM EDTOxygen Yacjgeqvvz80%07/18/2021 12:00 PM EDTInhaled Oxygen Concentration--Yucnag470.3 kg (307 lb)08/18/2021 3:30 PM DBPPmonfs843.3 cm (5' 9 )08/18/2021 3:30 PM EDTBody Mass Index45.34008/18/2021 3:30 PM EDT Plan of Treatment Not on file Medical Devices ImplantedTypeAreaManufacturerDevice IdentifierShelf Expiration DateModel / Serial / LotJoint ComponentJoint ComponentBilateral: KneeScrew/Plate/Nail/Luis Screw/Plate/Nail/RodN/A: Spine Thoracic Insurance Advance Directives * Full Code (Latest Code Status on File) Date ActivatedDate InactivatedComments07/16/2021 9:42 AM07/18/2021 8:50 PM * Full Code Date ActivatedDate InactivatedComments05/24/2021 4:29 PM05/26/2021 4:33 PM Care Teams Team MemberRelationshipSpecialtyStart DateEnd Date Derick Packer MD [address] [place] [address] PCP - GeneralFamily Medicine04/11/19
--- OUTSIDE RECORDS SUMMARY | 2025-02-15 16:52 | XMS_ITS | Patient Health Record ---
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 [employer] Name Role Phone ABELARDO PACKER MD Primary Care Provider [phone] Abelardo Packer Unavailable [phone] Estephanie Saul Unavailable [phone] Allergies No Known Allergies Results Component Value Reference Range Notes CBC AUTO DIFF Reviewed date:03/17/2024 01:14:22 PM Interpretation: Performing Lab: Notes/Report: [facility] , White Blood Count 5.9 4.0-11.0 10 3/uL Red Blood Count5.114.70-6.10 10 6/kXYwdkpxxmbg22.314.0-18.0 g/dKCzjhztjipb15.8 42.0-54.0 %Mean Corpuscular Izgfbi24.580.0-94.0 fLMean Corpuscular Hemoglobin 31.925.9-34.0 pgMean Corpuscular HGB Conc34.129.9-35.2 g/dLRed Cell Distribution Width11.611.0-15.0 %Platelet Ltubv791734-247 10 3/uLMean Platelet Volume8.89.5- 13.5 fLNeutrophils Percent Auto51.643.0-75.0 %Lymphocytes Percent Auto34.920.5- 60.0 %Monocytes Percent Auto8.81.7-12.0 %Eosinophils Percent Auto3.70.9-7.0 % Basophils Percent Auto0.80.2-2.0 %Immature Granulocytes Pct Auto0.20.0-0.5 % Neutrophils Absolute Auto3.11.4-6.5 10 3/uLLymphocytes Absolute Auto2.11.2-3.8 10 3/uLMonocytes Absolute Auto0.50.3-0.8 10 3/uLEosinophils Absolute Auto0.20.0- 0.7 10 3/uLBasophils Absolute Auto0.10.0-0.1 10 3/uLImmature Granulocytes Abs Auto0.010.00-0.03 10 3/uLPerforming Lab:see noteML - [facility] LBCRP Reviewed date:03/17/2024 01:14:22 PM Interpretation: Performing Lab: Notes/Report: [facility] ,C Reactive Protein<0.50<=0.50 mg/dLPerforming Lab:see note - [facility] LBPROF 14(COMP METB) Reviewed date:03/17/2024 01:14:22 PM Interpretation: Performing Lab: Notes/Report: [facility] ,Ajrrvx291815-512 mmol/LPotassium4.63.5-5.1 mmol/RSmqzzhgc28662-005 mmol/LCarbon Vgffgun53.121.0-32.0 mmol/LAnion Gap7.5Tfriwyb06222-610 mg/dLBlood Urea Nitrogen 21.07.0-18.0 mg/dLCreatinine1.350.70-1.30 mg/dLEstimated GFR ( Tess>60 >=60 mL/min/1.73m 2Estimated GFR (Non- Ame54>=60 mL/min/1.73m 2BUN Creatinine Ratio15.0Cxnpjjf4.28.5-10.1 mg/dLBilirubin Total0.70.2-1.0 mg/dL Aspartate Amino Dngfhhytshv0705-10 U/LAlanine Fsccmghxnxazwpgu4098-20 U/L Alkaline Fgfeidlthqv3878-227 U/LTotal Protein7.06.4-8.2 g/dLAlbumin Level3.53.4- 5.0 g/dLGlobulin3.5Albumin Globulin Ratio1.0Performing Lab:see note - [facility] LBXR KNEE RT 3V Reviewed date:03/17/2024 01:14:22 PM Interpretation: Performing Lab: Notes/Report: Source Facility: [place] [address] XRay Report Signed Patient: SUKHDEEP MAIR MR#: [id number] : 1965 Acct:[id number] Age/Sex: 58 / M ADM Date: 03/17/24 Loc: LAB Attending Dr: Blayne Packer M.D. Ordering Physician: Blayne Packer M.D. Date of Service: 03/17/24 Procedure(s): XR knee RT 3V Accession Number(s): [id number] cc: Blayne Packer M.D. [place] [address] Patient Name: SUKHDEEP MARI MRN: [id number] date: 1965 Sex: M Assigned Patient Location: LAB Current Patient Location: LAB Accession/Order Number: [id number] Exam Date: 03/17/2024 07:03 Report Date: 03/17/2024 [...] By: Rakesh Randall M.D. Signed By: 03/17/24 1253 DD/ 1242 TD/TT: Motorcycle Deliverer:CT knee RT wo con Reviewed date:04/08/2024 09:52:06 PM Interpretation: Performing Lab: Notes/Report: Source Facility: [place] [address] [place] [address] CT Scan Report Signed Patient: SUKHDEEP MARI MR#: [id number] : 1965 Acct:[id number] Age/Sex: 58 / M ADM Date: 04/07/24 Loc: CT Attending Dr: Blayne Packer M.D. Ordering Physician: Blayne Packer M.D. Date of Service: 04/07/24 Procedure(s): CT knee RT wo con Accession Number(s): [id number] cc: Blayne Packer M.D. [place] [address] Patient Name: SUKHDEEP MARI MRN: [id number] date: 1965 Sex: M Assigned Patient Location: CT Current Patient Location: Accession/Order Number: [id number] Exam Date: 04/07/2024 10:15 Report Date: 04/08/2024 [...] Signed By: 04/08/24 0537 DD/ 0534 TD/TT: Motorcycle Deliverer:XR abdomen 1V Reviewed date:07/16/2024 08:12:11 PM Interpretation: Performing Lab: Notes/Report: Source Facility: [place] [address] [place] [address] XRay Report Signed Patient: SUKHDEEP MARI MR#: [id number] : 1965 Acct:[id number] Age/Sex: 58 / M ADM Date: 07/16/24 Loc: US Attending Dr: Spenser Ag M.D. Ordering Physician: Spenser Ag M.D. Date of Service: 07/16/24 Procedure(s): XR abdomen 1V Accession Number(s): [id number] cc: Blayne Packer M.D.; Spenser Ag M.D. [place] [address] Patient Name: SUKHDEEP MARI MRN: [id number] date: 1965 Sex: M Assigned Patient Location: Current Patient Location: US Accession/Order Number: [id number] Exam Date: 07/16/2024 10:07 Report Date: 07/16/2024 [...] Sadler M.D. 07/16/2024 10:13 AM Dictation Location: [place] [address] Electronically authenticated by: [id number] Y Date: 07/16/2024 10:13 Dictated By: Erlinda Sadler M.D. Signed By: 07/16/24 1015 DD/ 1013 TD/TT: Motorcycle Deliverer:US renal BI Reviewed date:07/16/2024 08:12:11 PM Interpretation: Performing Lab: Notes/Report: Source Facility: [place] [address] Ultrasound Report Signed Patient: SUKHDEEP MARI MR#: [id number] : 1965 Acct:[id number] Age/Sex: 58 / M ADM Date: 07/16/24 Loc: US Attending Dr: Spenser Ag M.D. Ordering Physician: Spenser Ag M.D. Date of Service: 07/16/24 Procedure(s): US renal BI Accession Number(s): [id number] cc: Blayne Packer M.D.; Spenser Ag M.D. [place] [address] Patient Name: SUKHDEEP MARI MRN: [id number] date: 1965 Sex: M Assigned Patient Location: Current Patient Location: US Accession/Order Number: [id number] Exam Date: 07/16/2024 10:03 Report Date: 07/16/2024 [...] Sadler M.D. 07/16/2024 10:07 AM Dictation Location: [place] [address] Electronically authenticated by: [id number] Y Date: 07/16/2024 10:07 Dictated By: Erlinda Sadler M.D. Signed By: 07/16/24 1009 DD/ 1007 TD/TT: Motorcycle Deliverer:MAGNESIUM Reviewed date:11/10/2024 05:18:02 PM Interpretation: Performing Lab: Notes/Report: [facility] ,Magnesium1.81.8-2.4 mg/dLPerforming Lab:see noteML - [facility] LB RENAL FUNCTION PANEL Reviewed date:11/10/2024 05:18:02 PM Interpretation: Performing Lab: Notes/Report: [facility] ,Wufewy581047-941 mmol/LPotassium3.83.5-5.1 mmol/NHyvwdipr44636-363 mmol/LCarbon Vlhgeod37.521.0-32.0 mmol/LAnion Gap13.8Aqzibju87607-319 mg/dLBlood Urea Wbyovieb93.07.0-18.0 mg/dLCreatinine1.320.70-1.30 mg/dLEstimated GFR ( Tess>60>=60 mL/min/1.73m 2Estimated GFR (Non- Ame55>=60 mL/min/1.73m 2 BUN Creatinine Ratio17.7Onpxebr9.98.5-10.1 mg/dLPhosphorus2.62.6-4.7 mg/dL Albumin Level3.53.4-5.0 g/dLPerforming Lab:see noteML - [facility] LB UA RANDOM W or MICROSCOPIC Reviewed date:11/10/2024 05:18:02 PM Interpretation: Performing Lab: Notes/Report: [facility] ,Color UrineLT. YELLOWYELLOWClarity UrineCLEARCLEARSpecific Addison Urine1.015 1.005-1.025pH Urine5.55.0-9.0Protein UrineNEGATIVENEG/TRACE mg/dLGlucose Urine UANEGATIVENEGATIVE mg/dLBilirubin UrineNEGATIVENEGATIVEKetones UrineNEGATIVE NEGATIVE mg/dLBlood UrineMODERATENEGATIVENitrite UrineNEGATIVENEGATIVE Urobilinogen Urine0.20.2-1.0 EU/dLLeukocyte Esterase UrineNEGATIVENEGATIVEWBC Urine0-2NONE SEEN #/HPFRBC Xsnmk1-611-3 #/HPFBacteria UrineNONE SEENNONE SEEN #/HPFMucus UrineNONE SEENNONE SEENSquamous Epithelial Cell UrineNONE SEEN NONE/RARE #/LPFCrystals Seen?None SeenNone Seen #/HPFCast Seen?NONE SEENNONE SEEN #/LPFPerforming Lab:see note - [facility] LBURIC ACID SERUM Reviewed date:11/10/2024 05:18:02 PM Interpretation: Performing Lab: Notes/Report: [facility] ,Uric Acid7.53.5-7.2 mg/dLPerforming Lab:see note - [facility] LB PTH, Intact Reviewed date:11/11/2024 12:33:51 PM Interpretation: Performing Lab: Notes/Report: [facility] ,PTH, Iimwtu4178-28 pg/mL Performed at: [address] [id number] Dispatcher Tow Truck: Logan Martinez PhD, Phone: [phone] Performing Lab:[facility] LBCBC AUTO DIFF Reviewed date:11/12/2024 06:37:31 PM Interpretation: Performing Lab: Notes/Report: [facility] ,White Blood Count7.34.0-11.0 10 3/uLRed Blood Count4.714.70-6.10 10 6/uL Ohcbontnjb99.114.0-18.0 g/cBDoatrgtjmc73.142.0-54.0 %Mean Corpuscular Oxfbic24.5 80.0-94.0 fLMean Corpuscular Bzqfpahdfw52.125.9-34.0 pgMean Corpuscular HGB Conc 35.029.9-35.2 g/dLRed Cell Distribution Width12.111.0-15.0 %Platelet Hemet507 150-450 10 3/uLMean Platelet Volume9.29.5-13.5 fLNeutrophils Percent Auto55.9 43.0-75.0 %Lymphocytes Percent Auto28.620.5-60.0 %Monocytes Percent Auto10.81.7- 12.0 %Eosinophils Percent Auto3.70.9-7.0 %Basophils Percent Auto0.70.2-2.0 % Immature Granulocytes Pct Auto0.30.0-0.5 %Neutrophils Absolute Auto4.11.4-6.5 10 3/uLLymphocytes Absolute Auto2.11.2-3.8 10 3/uLMonocytes Absolute Auto0.80.3-0.8 10 3/uLEosinophils Absolute Auto0.30.0-0.7 10 3/uLBasophils Absolute Auto0.10.0- 0.1 10 3/uLImmature Granulocytes Abs Auto0.020.00-0.03 10 3/uLPerforming Lab:see noteML - [facility] LBUA Micro, reflex to culture Reviewed date:11/12/2024 06:37:31 PM Interpretation: Performing Lab: Notes/Report: [facility] ,Color UrineYELLOWYELLOWClarity UrineCLEARCLEARSpecific Addison Urine>=1.030 1.005-1.025pH Urine5.55.0-9.0Protein UrineTRACENEG/TRACE mg/dLGlucose Urine UA NEGATIVENEGATIVE mg/dLBilirubin UrineNEGATIVENEGATIVEKetones UrineNEGATIVE NEGATIVE mg/dLBlood UrineLARGENEGATIVENitrite UrineNEGATIVENEGATIVEUrobilinogen Urine1.00.2-1.0 EU/dLLeukocyte Esterase UrineNEGATIVENEGATIVEWBC Urine0-2NONE SEEN #/HPFRBC Txqsl28-632-4 #/HPFBacteria UrineTRACENONE SEEN #/HPFMucus Urine TRACENONE SEENSquamous Epithelial Cell UrineRARENONE/RARE #/LPFCrystals Seen? None SeenNone Seen #/HPFCast Seen?NONE SEENNONE SEEN #/LPFUrine Culture IndicatedNOPerforming Lab:see noteML - [facility] LBCT abdomen pelvis wo con Reviewed date:11/12/2024 06:37:31 PM Interpretation: Performing Lab: Notes/Report: Source Facility: [place] [address] CT Scan Report Signed Patient: SUKHDEEP MARI MR#: [id number] : 1965 Acct:[id number] Age/Sex: 59 / M ADM Date: 11/12/24 Loc: ER Attending Dr: Ordering Physician: Blanka Maza Date of Service: 11/12/24 Procedure(s): CT abdomen pelvis wo con Accession Number(s): [id number] cc: Blayne Packer M.D. [place] [address] Patient Name: SUKHDEEP MARI MRN: [id number] date: 1965 Sex: M Assigned Patient Location: ER Current Patient Location: ER Accession/Order Number: [id number] Exam Date: 11/12/2024 17:52 Report Date: 11/12/2024 [...] Morgan M.D. 11/12/2024 6:15 PM Dictation Location: [place] [address] Electronically authenticated by: [id number] Y Date: 11/12/2024 18:15 Dictated By: Felipe Morgan M.D. Signed By: 11/12/241816 DD/ 14 TD/TT: Motorcycle Deliverer:BNP Reviewed date:11/13/2024 05:16:54 PM Interpretation: Performing Lab: Notes/Report: [facility] ,NT Pro B Type Natriuretic Vaog209.0<=900.0 pg/mLPerforming Lab:see noteML - [facility] LBECG 12 lead Reviewed date:11/14/2024 03:51:42 PM Interpretation: Performing Lab: Notes/Report: Source Facility: [facility]-[address] [place] [address] [place] [address] Electrocardiograph Report Signed Patient: SUKHDEEP MARI MR#: [id number] : 1965 Acct:[id number] Age/Sex: 59 / M ADM Date: 11/12/24 Loc: [place] 224-[address]: Janusz Carlton M.D. Ordering Physician: Karthki An II, M.D. 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 Measurements Intervals Browder Rate: 132 P: AK: QRS: -15 QRSD: 95 T: 233 QT: 328 QTc: 487 Interpretive Statements ATRIAL FIBRILLATION WITH RAPID VENTRICULAR RESPONSE NONSPECIFIC ST T-WAVE ABNORMALITY Compared to ECG 07/15/2021 13:14:48 T-wave abnormality now present Sinus rhythm no longer present Electronically Signed On 11-13-2024 19:59:45 EDT by GENESIS CAR M.D. Dictated By: GENESIS CAR Signed By: 11/13/241999 DD/ 4 TD/TT: Motorcycle Deliverer:ECG 12 lead Reviewed date:11/14/2024 03:51:42 PM Interpretation: Performing Lab: Notes/Report: Source Facility: [place] [address] Electrocardiograph Report Signed Patient: SUKHDEEP MARI MR#: [id number] : 1965 Acct:[id number] Age/Sex: 59 / M ADM Date: 11/12/24 Loc: [place] 224- Attending Dr: Janusz Carlton M.D. Ordering Physician: Janusz Carlton M.D. 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 Measurements Intervals Browder Rate: 64 P: 37 AK: 188 QRS: -10 QRSD: 90 T: 44 QT: 398 QTc: 408 Interpretive Statements 1100 Sinus rhythm 9110 normal ECG Compared to ECG 11/13/2024 13:03:13 Atrial fibrillation no longer present T-wave abnormality no longer present Electronically Signed On 11-13-2024 20:04:46 EDT by GENESIS CAR M.D. Dictated By: GENESIS CAR Signed By: 11/13/242004 DD/ 36 TD/TT: Motorcycle Deliverer:PROF IAM Cisse (BAS MET) Reviewed date:11/14/2024 03:51:42 PM Interpretation: Performing Lab: Notes/Report: [facility] ,Qkeaef326763-256 mmol/LPotassium3.53.5-5.1 mmol/ENooanxfr80507-767 mmol/LCarbon Jxghphf27.621.0-32.0 mmol/LAnion Gap14.7Zyqbtnw16103-806 mg/dLBlood Urea Rplixver62.07.0-18.0 mg/dLCreatinine1.580.70-1.30 mg/dLEstimated GFR ( Ebkohca18>=60 mL/min/1.73m 2Estimated GFR (Non- Ame45>=60 mL/min/1.73m 2 BUN Creatinine Ratio14.6Zcdvbxl0.38.5-10.1 mg/dLPerforming Lab:see noteML - [facility] LBCBC no Diff (Hemogram) Reviewed date:11/14/2024 03:51:42 PM Interpretation: Performing Lab: Notes/Report: [facility] ,White Blood Count7.94.0-11.0 10 3/uLRed Blood Count4.514.70-6.10 10 6/uL Hpbntxqhgi67.414.0-18.0 g/fTObpmqfqblp45.742.0-54.0 %Mean Corpuscular Lnieha88.5 80.0-94.0 fLMean Corpuscular Mlloxkfsej73.925.9-34.0 pgMean Corpuscular HGB Conc 34.529.9-35.2 g/dLRed Cell Distribution Width12.011.0-15.0 %Platelet Atnom831 150-450 10 3/uLMean Platelet Volume9.49.5-13.5 fLPerforming Lab:see noteML - [facility] LBCT angio chest Reviewed date:12/04/2024 11:58:40 AM Interpretation: Performing Lab: Notes/Report: Source Facility: [facility]-[address] [place] [address] [place] [address] CT Scan Report Signed Patient: SUKHDEEP MARI MR#: [id number] : 1965 Acct:[id number] Age/Sex: 59 / M ADM Date: 12/04/24 Loc: CT Attending Dr: ESTEPHANIE SAUL Ordering Physician: ESTEPHANIE SAUL Date of Service: 12/04/24 Procedure(s): CT angio chest Accession Number(s): [id number] cc: Blayne Packer M.D. [place] [address] Patient Name: SUKHDEEP MARI MRN: [id number] date: 1965 Sex: M Assigned Patient Location: CT Current Patient Location: LAB Accession/Order Number: [id number] Exam Date: 12/04/2024 08:16 Report Date: 12/04/2024 09:02 At the request of: ESTEPHANIE SAUL Procedure: CT angio chest CT PULMONARY ANGIOGRAM WITH CONTRAST CLINICAL HISTORY: Shortness Of Breath. Prior history of pulmonary embolism. COMPARISON: 08/25/2021 TECHNIQUE: Spiral images were obtained through the chest following intravenous administration of 100 mL of Visipaque 270. Images were reviewed using both narrow and wide window settings. Sagittal, coronal and 3 D volume-rendered reconstructions were performed and reviewed. This CT exam was performed using one or more following dose reduction techniques: Automated exposure control, adjustment of the mA and/or kV according to patient size, or use of iterative reconstruction technique. FINDINGS: The heart is borderline prominent. There is coronary disease. There is no pericardial effusion. The ascending aorta is borderline dilated measuring 4.1 cm. This is similar to the prior. No dissection is seen. There is adequate opacification of the pulmonary arteries. No emboli are identified. No pathologic lymphadenopathy is seen. There is mild gynecomastia. Mild endplate spurring is visualized at the spine. Minor atelectasis and/or scarring is present. There is no focal consolidation, effusion or discrete soft tissue nodules. No pneumothorax is seen. Limited cuts through the upper abdomen show postoperative changes of bariatric surgery at the stomach. CT/CT angio chest IMPRESSION: NO CT EVIDENCE OF PULMONARY EMBOLISM. BORDERLINE CARDIOMEGALY AND AORTIC DILATATION. MINOR ATELECTASIS AND/OR SCARRING. NO OTHER ACUTE INTRATHORACIC FINDINGS. Impression dictated by: Erlinda Sadler M.D. 12/04/2024 9:02 AM Dictation Location: [place] [address] Electronically authenticated by: [id number] Y Date: 12/04/2024 09:02 Dictated By: Erlinda Sadler M.D. Signed By: 12/04/24903 DD/ 1 TD/TT: Motorcycle Deliverer:CBC AUTO DIFF Reviewed date:12/04/2024 11:53:06 AM Interpretation: Performing Lab: Notes/Report: [facility] ,White Blood Count6.24.0-11.0 10 3/uLRed Blood Count4.794.70-6.10 10 6/uL Swpvhulcbp21.114.0-18.0 g/mPKcbviovdeu07.042.0-54.0 %Mean Corpuscular Kzxzpg75.9 80.0-94.0 fLMean Corpuscular Szvceverws70.525.9-34.0 pgMean Corpuscular HGB Conc 34.329.9-35.2 g/dLRed Cell Distribution Width12.311.0-15.0 %Platelet Gxajy439 150-450 10 3/uLMean Platelet Volume9.29.5-13.5 fLNeutrophils Percent Auto56.8 43.0-75.0 %Lymphocytes Percent Auto27.820.5-60.0 %Monocytes Percent Auto10.61.7- 12.0 %Eosinophils Percent Auto3.20.9-7.0 %Basophils Percent Auto1.00.2-2.0 % Immature Granulocytes Pct Auto0.60.0-0.5 %Neutrophils Absolute Auto3.51.4-6.5 10 3/uLLymphocytes Absolute Auto1.71.2-3.8 10 3/uLMonocytes Absolute Auto0.70.3-0.8 10 3/uLEosinophils Absolute Auto0.20.0-0.7 10 3/uLBasophils Absolute Auto0.10.0- 0.1 10 3/uLImmature Granulocytes Abs Auto0.040.00-0.03 10 3/uLPerforming Lab:see [facility] LBFREE T3 Reviewed date:12/05/2024 12:53:08 PM Interpretation: Performing Lab: Notes/Report: [facility] ,Free T32.932.18-3.98 pg/mLPerforming Lab:see [facility] GLYCOHEMOGLOBIN A1C Reviewed date:12/05/2024 12:53:08 PM Interpretation: Performing Lab: Notes/Report: [facility] ,Glycohemoglobin A1C6.14.5-6.2 % ADA RECOMMENDED LIMIT 4.0 - 6.0 ADA THERAPEUTIC TARGET < 7.0 ACTION SUGGESTED > 7.0 Estimated Average Mcbsaqo561Dnxmsoaywe Lab:see [facility] INSULIN Reviewed date:12/05/2024 12:53:08 PM Interpretation: Performing Lab: Notes/Report: [facility] ,Gbsnwfp53.92.6-24.9 uIU/mL Performed at: [facility] [address] [id number] Dispatcher Tow Truck: Logan Martinez PhD, Phone: [phone] Performing Lab:[facility] LBLIPID PROFILE Reviewed date:12/05/2024 12:53:08 PM Interpretation: Performing Lab: Notes/Report: [facility] ,Emqjuiwhilokr32<=150 mg/fSYmxmcegjcht891<=200 mg/dLHDL Cduhtiysxrd2584-53 mg/dL > or =60 mg/dl - LOW CARDIOVASCULAR RISK <40 mg/dl - HIGH CARDIOVASCULAR RISK LDL Cholesterol Nhzcsddevh63.4 <100 mg/dl OPTIMAL 100-129 mg/dl NEAR OR ABOVE OPTIMAL 130-159 mg/dl BORDERLINE HIGH 160-189 mg/dl HIGH >190 mg/dl VERY HIGH VLDL MNRIRLSNONF17.6Chol HDL Ratio2.8 3.3 - 4.4 LOW RISK 4.4 - 7.1 AVERAGE RISK 7.1 - 11.0 MODERATE RISK >11.0 HIGH RISK Performing Lab:see noteML - [facility] LBPROF 14(COMP METB) Reviewed date:12/05/2024 12:53:08 PM Interpretation: Performing Lab: Notes/Report: [facility] ,Yavwhl866084-706 mmol/LPotassium3.53.5-5.1 mmol/BOxuaweqo00302-176 mmol/LCarbon Aulitqb30.721.0-32.0 mmol/LAnion Gap14.4Xhcdvns2646-384 mg/dLBlood Urea Nitrogen 14.07.0-18.0 mg/dLCreatinine1.330.70-1.30 mg/dLEstimated GFR ( Tess>60 >=60 mL/min/1.73m 2Estimated GFR (Non- Ame55>=60 mL/min/1.73m 2BUN Creatinine Ratio10.6Guqtisz6.88.5-10.1 mg/dLBilirubin Total0.60.2-1.0 mg/dL Aspartate Amino Yncadfzearm4309-42 U/LAlanine Rfpqmbgpsohnvbdt0888-55 U/L Alkaline Fkbphhkmxwe1460-270 U/LTotal Protein7.46.4-8.2 g/dLAlbumin Level3.73.4- 5.0 g/dLGlobulin3.7Albumin Globulin Ratio1.0Performing Lab:see noteML - [facility] LBT4 Reviewed date:12/05/2024 12:53:08 PM Interpretation: Performing Lab: Notes/Report: [facility] ,T4 Thyroxine6.204.50-12.10 ug/dLPerforming Lab:see noteML - [facility] LBTSH Reviewed date:12/05/2024 12:53:08 PM Interpretation: Performing Lab: Notes/Report: [facility] ,Thyroid Stimulating Hormone0.7930.358-3.740 uIU/mLPerforming Lab:see note - [facility] LBUA RANDOM W or MICROSCOPIC Reviewed date:12/04/2024 11:58:40 AM Interpretation: Performing Lab: Notes/Report: [facility] ,Color UrineYELLOWYELLOWClarity UrineCLEARCLEARSpecific Addison Urine1.025 1.005-1.025pH Urine5.55.0-9.0Protein Zklue05CWP/TRACE mg/dLGlucose Urine UA NEGATIVENEGATIVE mg/dLBilirubin UrineNEGATIVENEGATIVEKetones UrineNEGATIVE NEGATIVE mg/dLBlood UrineNEGATIVENEGATIVENitrite UrineNEGATIVENEGATIVE Urobilinogen Urine1.00.2-1.0 EU/dLLeukocyte Esterase UrineNEGATIVENEGATIVEWBC Urine5-10NONE SEEN #/HPFRBC Urine0-20-2 #/HPFBacteria UrineSMALLNONE SEEN #/HPF Mucus UrineMODERATENONE SEENSquamous Epithelial Cell UrineRARENONE/RARE #/LPF Crystals Seen?None SeenNone Seen #/HPFCast Seen?NONE SEENNONE SEEN #/LPFUrine Culture IndicatedALREADY ORDEREDPerforming Lab:see noteML - [facility] LBUrine Culture - FR Reviewed date:12/07/2024 12:41:18 PM Interpretation: Performing Lab: Notes/Report: [facility] ,Urine Culture - FRMCSee Below For Report [place] [facility] [place] 2 [place] Urine Culture - FR Urine Culture - FR No Growth 2 Days Urine Culture - FRTesting performed at [facility] Urine Culture - [facility] [place] Growth 2 Days Urine Culture - [id number] [place] [address] Urine Culture [place] [facility] [place] Growth 2 Days Performing Lab:see noteML - [facility] LBCBC AUTO DIFF Reviewed date:02/01/2025 07:04:44 PM Interpretation: Performing Lab: Notes/Report: [facility] ,White Blood Count6.44.0-11.0 10 3/uLRed Blood Count5.014.70-6.10 10 6/uL Qydqfgsmyq24.214.0-18.0 g/rXIvdlxbbevm77.542.0-54.0 %Mean Corpuscular Tdtype16.8 80.0-94.0 fLMean Corpuscular Thkpogwxbf05.325.9-34.0 pgMean Corpuscular HGB Conc 34.829.9-35.2 g/dLRed Cell Distribution Width11.911.0-15.0 %Platelet Tsikw256 150-450 10 3/uLMean Platelet Volume9.19.5-13.5 fLNeutrophils Percent Auto66.2 43.0-75.0 %Lymphocytes Percent Auto22.920.5-60.0 %Monocytes Percent Auto8.71.7- 12.0 %Eosinophils Percent Auto1.20.9-7.0 %Basophils Percent Auto0.80.2-2.0 % Immature Granulocytes Pct Auto0.20.0-0.5 %Neutrophils Absolute Auto4.31.4-6.5 10 3/uLLymphocytes Absolute Auto1.51.2-3.8 10 3/uLMonocytes Absolute Auto0.60.3-0.8 10 3/uLEosinophils Absolute Auto0.10.0-0.7 10 3/uLBasophils Absolute Auto0.10.0- 0.1 10 3/uLImmature Granulocytes Abs Auto0.010.00-0.03 10 3/uLPerforming Lab:see noteML - [facility] LBPSA SCREENING Reviewed date:12/04/2024 11:53:06 AM Interpretation: Performing Lab: Notes/Report: [facility] ,Prostate Specific Antigen Scrn1.43<=4.00 ng/mLPerforming Lab:see noteML - [facility] LBXR chest 1V Reviewed date:11/14/2024 03:51:42 PM Interpretation: Performing Lab: Notes/Report: Source Facility: [place] [address] [place] [address] XRay Report Signed Patient: SUKHDEEP MARI MR#: [id number] : 1965 Acct:[id number] Age/Sex: 59 / M ADM Date: 11/12/24 Loc: [place] 224-[address]: Janusz Carlton M.D. Ordering Physician: Janusz Carlton M.D. Date of Service: 11/14/24 Procedure(s): XR chest 1V Accession Number(s): [id number] cc: Blayne Packer M.D.; Jaunsz Carlton M.D. [place] [address] Patient Name: SUKHDEEP MARI MRN: [id number]:[id number] date: 1965 Sex: M Assigned Patient Location: [place] Current Patient Location: Accession/Order Number: [id number] Exam Date: 11/14/2024 13:45 Report Date: 11/14/2024 14:51 At the request of: JANUSZ CARLTON MD Procedure: XR chest 1V PA CHEST: CLINICAL HISTORY: Follow up CHF COMPARISON: 11/13/2024 Similar mild cardiomegaly. Improved perihilar pulmonary vascular congestion and interstitial edema. No focal opacity or effusion. No pneumothorax. XR/XR chest 1V IMPRESSION: Improved CHF Impression dictated by: Facundo Kamara M.D. 11/14/2024 2:51 PM Dictation Location: [place] [address] Electronically authenticated by: [id number] Date: 11/14/2024 14:51 Dictated By: Facundo Kamara M.D. 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 Ordering Physician: Janusz Carlton M.D. 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 Measurements Intervals Browder Rate: 66 P: 51 AK: 204 QRS: 6 QRSD: 96 T: 90 QT: 390 QTc: 403 Interpretive Statements 1100 Sinus rhythm 4068 Nonspecific Twave abnormality 9130 borderline ECG Compared to ECG 11/13/2024 15:37:47 No significant changes Electronically Signed On 11-15-2024 13:51:05 EDT by GENESIS CAR M.D. Dictated By: GENESIS CAR Signed By: 11/15/24 1351 DD/ 0445 TD/TT: Motorcycle Deliverer:ECG 12 lead Reviewed date:11/14/2024 03:51:42 PM Interpretation: Performing Lab: Notes/Report: Source Facility: [place] [address] Electrocardiograph Report Signed Patient: SUKHDEEP MARI MR#: [id number] : 1965 Acct:[id number] Age/Sex: 59 / M ADM Date: 11/12/24 Loc: MS 224- Attending Dr: Janusz Carlton M.D. Ordering Physician: Karthik An II, M.D. 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 Measurements Intervals Browder Rate: 122 P: -89 AK: 198 QRS: -14 QRSD: 96 T: -69 QT: 317 QTc: 452 Interpretive Statements ATRIAL FIBRILLATION WITH RAPID VENTRICULAR RESPONSE NONSPECIFIC ST T-WAVE ABNORMALITY ABNORMAL ECG Compared to ECG 11/13/2024 09:25:11 No significant changes Electronically Signed On 11-13-2024 20:04:31 EDT by GENESIS CAR M.D. Dictated By: GENESIS CAR Signed By: 11/13/24200311/13/242003 DD/ 1303 TD/TT: Motorcycle Deliverer:XR chest 1V Reviewed date:11/13/2024 05:16:54 PM Interpretation: Performing Lab: Notes/Report: Source Facility: [place] [address] XRay Report Signed Patient: SUKHDEEP MARI MR#: [id number] : 1965 Acct:[id number] Age/Sex: 59 / M ADM Date: 11/12/24 Loc: [place] 224-[address]: Janusz Carlton M.D. Ordering Physician: Janusz Carlton M.D. Date of Service: 11/13/24 Procedure(s): XR chest 1V Accession Number(s): [id number] cc: Blayne Packer M.D.; Janusz Carlton M.D. [place] [address] Patient Name: SUKHDEEP MARI MRN: [id number] date: 1965 Sex: M Assigned Patient Location: SD Current Patient Location: [place] Accession/Order Number: [id number] Exam Date: 11/13/2024 15:30 Report Date: 11/13/2024 [...] Morgan M.D. 11/13/2024 4:35 PM Dictation Location: [place] [address] Electronically authenticated by: [id number] Y Date: 11/13/2024 16:35 Dictated By: Felipe Morgan M.D. Signed By: 11/13/24 1637 DD/ 34 TD/TT: Motorcycle Deliverer:RUSSEL echo doppler complete Reviewed date:11/14/2024 03:51:42 PM Interpretation: Performing Lab: Notes/Report: Source Facility: [place] [address] Cardiology Report Signed Patient: SUKHDEEP MARI MR#: [id number] : 1965 Acct:[id number] Age/Sex: 59 / M ADM Date: 11/12/24 Loc: MS 224-[address]: Janusz Carlton M.D. Ordering Physician: Janusz Carlton M.D. Date of Service: 11/13/24 Procedure(s): RUSSEL echo doppler complete Accession Number(s): [id number] cc: Blayne Packer M.D.; Janusz Carlton M.D. Patient Name: SUKHDEEP MARI MR#: [id number] : 1965 Exam Date: 11/13/2024 Ordering Doctor: [...] CAR Signed By: 11/13/242027 DD/ 26 TD/TT: Motorcycle Deliverer:PROF IAM Cisse ([facility]) Reviewed date:11/13/2024 05:16:54 PM Interpretation: Performing Lab: Notes/Report: [facility] ,Tzjyms971699-734 mmol/LPotassium4.13.5-5.1 mmol/OPgtwunjw63095-526 mmol/LCarbon Fwisuup09.721.0-32.0 mmol/LAnion Gap10.4Mwfldcr32193-382 mg/dLBlood Urea Cudtgcxe23.07.0-18.0 mg/dLCreatinine1.350.70-1.30 mg/dLEstimated GFR ( Tess>60>=60 mL/min/1.73m 2Estimated GFR (Non- Ame54>=60 mL/min/1.73m 2 BUN Creatinine Ratio20.8Aixyhst6.38.5-10.1 mg/dLPerforming Lab:see noteML - [facility] LBCBC AUTO DIFF Reviewed date:11/13/2024 05:16:54 PM Interpretation: Performing Lab: Notes/Report: [facility] ,White Blood Count6.34.0-11.0 10 3/uLRed Blood Count4.324.70-6.10 10 6/uL Zbymfpatbb05.714.0-18.0 g/yQZlitdkpoza25.142.0-54.0 %Mean Corpuscular Qoityi21.8 80.0-94.0 fLMean Corpuscular Agcqeotzbe41.725.9-34.0 pgMean Corpuscular HGB Conc 34.229.9-35.2 g/dLRed Cell Distribution Width12.111.0-15.0 %Platelet Ptpoe950 150-450 10 3/uLMean Platelet Volume9.79.5-13.5 fLNeutrophils Percent Auto47.8 43.0-75.0 %Lymphocytes Percent Auto36.220.5-60.0 %Monocytes Percent Auto10.01.7- 12.0 %Eosinophils Percent Auto4.80.9-7.0 %Basophils Percent Auto1.00.2-2.0 % Immature Granulocytes Pct Auto0.20.0-0.5 %Neutrophils Absolute Auto3.01.4-6.5 10 3/uLLymphocytes Absolute Auto2.31.2-3.8 10 3/uLMonocytes Absolute Auto0.60.3- 0.8 10 3/uLEosinophils Absolute Auto0.30.0-0.7 10 3/uLBasophils Absolute Auto0.1 0.0-0.1 10 3/uLImmature Granulocytes Abs Auto0.010.00-0.03 10 3/uLPerforming Lab:see noteML - [facility] LBUA Micro, reflex to culture Reviewed date:11/12/2024 06:37:31 PM Interpretation: Performing Lab: Notes/Report: [facility] ,Color UrineYELLOWYELLOWClarity UrineCLEARCLEARSpecific Addison Urine1.025 1.005-1.025pH Urine5.05.0-9.0Protein UrineNEGATIVENEG/TRACE mg/dLGlucose Urine UANEGATIVENEGATIVE mg/dLBilirubin UrineNEGATIVENEGATIVEKetones UrineNEGATIVE NEGATIVE mg/dLBlood UrineLARGENEGATIVENitrite UrineNEGATIVENEGATIVEUrobilinogen Urine0.20.2-1.0 EU/dLLeukocyte Esterase UrineNEGATIVENEGATIVEWBC Urine0-2NONE SEEN #/HPFRBC Tijax35-454-9 #/HPFBacteria UrineTRACENONE SEEN #/HPFMucus Urine TRACENONE SEENSquamous Epithelial Cell UrineFEWNONE/RARE #/LPFCrystals Seen?None SeenNone Seen #/HPFCast Seen?NONE SEENNONE SEEN #/LPFUrine Culture IndicatedNO Performing Lab:see noteML - [facility] LBPROF CHEM 8 (BAS METB) Reviewed date:11/12/2024 06:37:31 PM Interpretation: Performing Lab: Notes/Report: [facility] ,Hmbfct614485-674 mmol/LPotassium3.83.5-5.1 mmol/HQynnimlo91693-803 mmol/LCarbon Skbwnrd58.121.0-32.0 mmol/LAnion Gap12.5Cdyhoya01383-526 mg/dLBlood Urea Rdhthyiy30.07.0-18.0 mg/dLCreatinine1.440.70-1.30 mg/dLEstimated GFR ( Tess>60>=60 mL/min/1.73m 2Estimated GFR (Non- Ame50>=60 mL/min/1.73m 2 BUN Creatinine Ratio18.7Bkrrunl4.48.5-10.1 mg/dLPerforming Lab:see noteML - [facility] LBCBC AUTO DIFF Reviewed date:11/12/2024 06:37:31 PM Interpretation: Performing Lab: Notes/Report: [facility] ,White Blood Count6.54.0-11.0 10 3/uLRed Blood Count4.514.70-6.10 10 6/uL Mxovppzjil98.514.0-18.0 g/gEPgcpgxbwsj49.142.0-54.0 %Mean Corpuscular Amppng73.1 80.0-94.0 fLMean Corpuscular Twdpzkbmsq00.225.9-34.0 pgMean Corpuscular HGB Conc 35.329.9-35.2 g/dLRed Cell Distribution Width12.311.0-15.0 %Platelet Nfdft584 150-450 10 3/uLMean Platelet Volume9.59.5-13.5 fLNeutrophils Percent Auto48.6 43.0-75.0 %Lymphocytes Percent Auto35.120.5-60.0 %Monocytes Percent Auto11.21.7- 12.0 %Eosinophils Percent Auto4.00.9-7.0 %Basophils Percent Auto0.90.2-2.0 % Immature Granulocytes Pct Auto0.20.0-0.5 %Neutrophils Absolute Auto3.21.4-6.5 10 3/uLLymphocytes Absolute Auto2.31.2-3.8 10 3/uLMonocytes Absolute Auto0.70.3- 0.8 10 3/uLEosinophils Absolute Auto0.30.0-0.7 10 3/uLBasophils Absolute Auto0.1 0.0-0.1 10 3/uLImmature Granulocytes Abs Auto0.010.00-0.03 10 3/uLPerforming Lab:see noteML - [facility] LBCT abdomen pelvis wo con Reviewed date:11/12/2024 06:37:31 PM Interpretation: Performing Lab: Notes/Report: Source Facility: [place] [address] CT Scan Report Signed Patient: SUKHDEEP MARI MR#: [id number] : 1965 Acct:[id number] Age/Sex: 59 / M ADM Date: 11/11/24 Loc: ER Attending Dr: Ordering Physician: Sofia Hardy Date of Service: 11/11/24 Procedure(s): CT abdomen pelvis wo con Accession Number(s): [id number] cc: Blayne Packer M.D. [place] [address] Patient Name: SUKHDEEP MARI MRN: [id number] date: 1965 Sex: M Assigned Patient Location: ER Current Patient Location: ED.MAIN Accession/Order Number: [id number] Exam Date: 11/11/2024 20:29 Report Date: 11/11/2024 [...] Morgan M.D. 11/11/2024 9:00 PM Dictation Location: [place] [address] Electronically authenticated by: [id number] Y Date: 11/11/2024 21:00 Dictated By: Felipe Morgan M.D. Signed By: 11/11/242102 DD/ 99 TD/TT: Motorcycle Deliverer:PROF Thompson(COMP METB) Reviewed date:11/12/2024 06:37:31 PM Interpretation: Performing Lab: Notes/Report: [facility] ,Mnucdm180534-081 mmol/LPotassium4.23.5-5.1 mmol/ZKykkieii80083-558 mmol/LCarbon Swzdctl70.921.0-32.0 mmol/LAnion Gap10.5Wrejklv81354-160 mg/dLBlood Urea Jspfobno74.07.0-18.0 mg/dLCreatinine1.270.70-1.30 mg/dLEstimated GFR ( Tess>60>=60 mL/min/1.73m 2Estimated GFR (Non- Ame58>=60 mL/min/1.73m 2 BUN Creatinine Ratio17.3Qzvavyt7.28.5-10.1 mg/dLBilirubin Total0.40.2-1.0 mg/dL Aspartate Amino Bndtxjsvhrj0704-43 U/LAlanine Foouclrljkkxqfjr4312-27 U/L Alkaline Rmsvnprcyuv1287-858 U/LTotal Protein7.66.4-8.2 g/dLAlbumin Level3.93.4- 5.0 g/dLGlobulin3.7Albumin Globulin Ratio1.1Performing Lab:see note - [facility] LBCBC no Diff (Hemogram) Reviewed date:11/10/2024 05:18:02 PM Interpretation: Performing Lab: Notes/Report: [facility] ,White Blood Count5.84.0-11.0 10 3/uLRed Blood Count4.764.70-6.10 10 6/uL Esyuihjxhm59.914.0-18.0 g/lEDuywcbwjxo80.542.0-54.0 %Mean Corpuscular Mjsqwg76.4 80.0-94.0 fLMean Corpuscular Utjkpbmtjp61.325.9-34.0 pgMean Corpuscular HGB Conc 34.329.9-35.2 g/dLRed Cell Distribution Width12.111.0-15.0 %Platelet Clngd162 150-450 10 3/uLMean Platelet Volume8.99.5-13.5 fLPerforming Lab:see note - [facility] LBVITAMIN D 25 [place] Reviewed date:11/10/2024 05:18:02 PM Interpretation: Performing Lab: Notes/Report: [facility] ,Vitamin D44.6 <20 ng/mL Vit D deficient 20-<30 ng/mL Vit D insufficient 30-100 ng/mL Vit D sufficient >100 ng/mL Potential Toxicity Performing Lab:see note - [facility] LBURINE T PROTEIN CREAT RATIO Reviewed date:11/10/2024 05:18:02 PM Interpretation: Performing Lab: Notes/Report: [facility] ,Total Protein Urine Random7.8<=11.9 mg/dLCreatinine Urine Amyjtp08.2620.00- 300.00 mg/dLProtein Creatinine Ratio Urine0.18Performing Lab:[facility]Ohio[facility] LBErythrocyte Sedimentation Rate Reviewed date:03/17/2024 01:14:22 PM Interpretation: Performing Lab: Notes/Report: [facility] ,Erythrocyte Sedimentation Rate8<=20 mm/hrPerforming Lab:see note - [facility] LBXR chest 2V Reviewed date:04/11/2024 02:13:28 PM Interpretation: Performing Lab: Notes/Report: Source Facility: [place] [address] XRay Report Signed Patient: SUKHDEEP MARI MR#: [id number] : 1965 Acct:[id number] Age/Sex: 58 / M ADM Date: 04/10/24 Loc: RAD Attending Dr: Blayne Packer M.D. Ordering Physician: Blayne Packer M.D. Date of Service: 04/10/24 Procedure(s): XR chest 2V Accession Number(s): [id number] cc: Blayne Packer M.D. [place] [address] Patient Name: SUKHDEEP MARI MRN: [id number] date: 1965 Sex: M Assigned Patient Location: [facility] Current Patient Location: Accession/Order Number: [id number] Exam Date: 04/10/2024 11:30 Report Date: 04/11/2024 [...] M.D. Signed By: 04/11/24827 DD/ 5 TD/TT: Motorcycle Deliverer:Erythrocyte Sedimentation Rate Reviewed date:02/01/2025 07:04:44 PM Interpretation: Performing Lab: Notes/Report: [facility] ,Erythrocyte Sedimentation Rate11<=20 mm/hrPerforming Lab:see noteML - [facility] LBCRP Reviewed date:02/01/2025 07:04:44 PM Interpretation: Performing Lab: Notes/Report: [facility] ,C Reactive Protein<0.50<=0.50 mg/dLPerforming Lab:see noteML - [facility] LB Reason For Referral No Information Medications Medication SIG (Take, Route, Frequency, Duration) Notes Start Date End Date Status tiZANidine HCl 4 mg TAKE 2 TABLETS BY MOUTH AT B EDTIME; Duration: 30 ActiveToprol XL 25 MG1 tablet Orally Once a day5ActivetraZODone HCl 150 mgTAKE 1 TABLET BY MOUTH AT BEDTIME; Duration: 30ActiveoxyCODONE-Acetaminophen 10-325 MGTAKE 1 TABLET BY MOUTH EVERY 6 HOURS NEEDED *MUST LAST 30 DAYS*; Duration: 5ActiveBumetanide 1 mgTAKE 1 TABLET BY MOUTH ONCE DAILY; Duration: 30ActiveCrestor 5 MG1 tablet Orally Once a day; Duration: 90 days 5ActiveIrbesartan 150 MG1 tablet Orally Once a day; Duration: 60 days ActiveOmeprazole 20 MG1 capsule 1/2 to 1 hour before morning meal Orally twice a day; Duration: 30 daysActiveReglan 10 MG1 tablet before meals Orally Twice a day; Duration: 90 daysPRNActiveTamsulosin HCl 0.4 mgTAKE 1 CAPSULE BY MOUTH DAILY; Duration: 30ActiveAdipex-P 37.5 MG1 tablet before breakfast Orally Once a day5ActiveTestosterone Cypionate 200 mg/mLINJECT 3/4 mls INTRAMUSCULARLY EVERY 2 (TWO) weeks *MUST LAST 30 DAYS*; Duration: Active Social History Tobacco Use: Social History Observation Description Date Details (start date - stop date) Never Smoker NA - NA Tobacco Use/Smoking Question Answer Notes Patient is a nonsmoker Alcohol Screen (Audit-C) Question Answer Notes Did you have a drink containing alcohol in the p ast year? No Erfybq5LnrlaqdpnyijgaCqslxojbMLXWQ-P (Standard) Question Answer Notes Did you have a drink containing alcohol in the p ast year? No Gybihz5HksqvsppxeiwfzOangwada Problems Problem Type SNOMED Code ICD Code Onset Dates Problem Status W/U Status Risk Notes Problem Testicular hypofunction (819673206) Testi cular hypofunction (E29.1) ActiveconfirmedProblemLumbosacral spondylosis without myelopathy (11143249) Spondylosis without myelopathy or radiculopathy, 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M47.816)Active confirmedProblemDegeneration of lumbar intervertebral disc (09592914)Other intervertebral disc degeneration, 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M51.36)ActiveconfirmedProblem Wart (77481158)Wart (B07.9)ActiveconfirmedProblemHypertension (63516731) Hypertension (I10)ActiveconfirmedProblemEdema (40640950)Edema (R60.9)Active confirmedProblemPain of right knee region (finding) (515717243617220)Knee pain, right (M25.561)ActiveconfirmedProblemCellulitis (851064356)Cellulitis (L03.90) ActiveconfirmedProblemShingles (8017832)Shingles (B02.9)ActiveconfirmedProblem Acute cor pulmonale co-occurrent and due to saddle embolus of pulmonary artery (disorder) (37019543140136446)Acute saddle pulmonary embolism with acute cor pulmonale (I26.02)ActiveconfirmedProblemAcute diarrhea (787647489)Acute diarrhea (R19.7)ActiveconfirmedProblemAcute bronchiolitis (3279456)Acute bronchiolitis (J21.9)ActiveconfirmedProblemHypercholesterolemia (98737632)Hypercholesterolemia (E78.00)ActiveconfirmedProblemPneumococcal pneumonia (918063922)Left lower lobe consolidation (J18.1)Activeconfirmed Vital Signs Heart Rate 70 /min 12/01/2024 Ayyezapuimh12.9 degrees Wpqgjztoks98/07/2775Odhmxopy30 %12/01/2024lood pressure vxuqoovxk20 mm Hg01/20/20252590Wvuzbc02 in01/20/2025lood pressure mm Hg01/20/20250209Bsudsz537.6 lbs103/22/2024BMI40.25 kg/m201/20/2025 Encounters Encounter Location Date Provider Diagnosis [facility] [address] [place] [place] [address] 02/24/2024 Abelardo Hoy [facility] [facility] [place] [address] 03/03/2024Doug HoySpondylosis without myelopathy or radiculopathy, lumbar region M47.816[facility] [place] [address]/Doug HoyKnee pain, right M25.561[facility] [place] [address]/11/2024Doug Hoy Spondylosis without myelopathy or radiculopathy, lumbar region M47.816 and Acute non-recurrent sinusitis, unspecified location J01.90[facility] [place] [address]/01/2025Doug HoyCough R05.9[facility] [place] [address] 04/11/2024[facility] [place] [address]/04/2024Doug [facility] [place] [address]/[facility] [place] [address]/04/2024[facility] [place] [address]/Doug [facility] [place] [address]/ [facility] [place] [address] 09/04/2024Doug [facility] [place] [address]/[facility] [place] [address]/12/2024Doug [facility] [place] [address]/Doug [facility] [place] [address]/Doug [facility] [place] [address]/ [facility] [place] [address] 11/12/2024Doug [facility] [place] [address]/Doug [facility] [place] [address]/Doug BirdieUTI (urinary tract infection) N39.0 [facility] [place] [address] 11/17/2024[facility] [place] [address]/10/2024Doug [facility] [place] [address]/11/2024Doug [facility] [place] [address]/12/2024Doug [facility] [place] [address]/Doug [facility] [place] [address]/ Abelardo [facility] [facility] [place] [address]/Doug HoyHypercholesterolemia E78.00[facility] [facility] [place] [address]/05/2024Doug [facility] [facility] [place] [address]/ Abelardo [facility] [facility] [place] [address]/Doug [facility] [facility] [place] [address]/02/2024[facility] [facility] [place] [place] [address]/Doug [facility] [facility] [place] [address]/Doug HoyKnee pain, right M25.561[facility] [facility] [place] [address]/Doug HoySpondylosis without myelopathy or radiculopathy, lumbar region M47.816[facility] [facility] [place] [address]/Doug HoyEdema R60.9 ; Hypertension I10 and Encounter for medication review Z79.899[facility] [facility] [place] [address]/Doug HoyEdema R60.9[facility] [facility] [place] [address]/ Abelardo HoyHypertension I10 and Edema R60.9B[place] [address] [place] [address]/Doug HoyHypertension I10 ; Hypercholesterolemia E78.00 and Well adult Z00.[address] [place] [address]/08/2024Pamela CramerSOB (shortness of breath) on exertion R06.02[place] [address] [place] [address]/06/2024Doug HoyWart B07.9[address] [place] [address]/Doug Hoy Hypertension I10 and Wart B07.[address] [place] [address]/Doug HoyKnee pain, right M25.[address] [place] [address]/08/2024 Abelardo HoyAcute non-recurrent sinusitis, unspecified location J01.90 and Nasal congestion R09.81 Assessments Encounter Date Diagnosis (ICD Code) Assessment Notes Treatment Notes Treatment Clinical Notes Section Notes 03/16/2024 Knee pain, right (ICD-10 - M25.5 61) 5Acute non-recurrent sinusitis, unspecified location (ICD-10 - J01.90) Rest and drink more liquids, especially water. You may use a humidifier or vaporizer to help keep the drainage moist. Itco-gpz-hicuoah Nasal Saline may help the stuffy and runny nose. Use Ibuprofen and or Tylenol as needed for fever, chills, body aches or pain. Children 5 years old should not be given xpzd-ytz-iuaqboz cough and cold medications such as guaifenesin and dextromethorphan. If you're over age 5, you may try okkz-lgz-nausztf cold medications such as guaifenesin and dextromethorphan, or multi-symptom cold reliever such as Dayquil to help reduce the symptoms. Antibiotics have been pre scribed. You should take these until completed and follow the directions. Antibiotics can sometimescause upset stomach, and in rare cases, serious allergic reactions or serious gastrointestinal problems. If you start having severe abdominal pain, severe vomiting, or bloody diarrhea, you should be r eevaluated by your physician or urgent care immediately. Follow up with your Primary Care Provider or return to clinic if symptoms do not improve within 3-5 days12/01/2024SOB (shortness of breath) on exertion (ICD-10 - R06.02) moderate score on Wells criteria patient refuses to go to ER for eval requesting outpatient imaging hx of prev PE x2 he states, feels like the start of one again not on blood thinners? recent surgery 12/30/2024Wart (ICD-10 - B07.9)01/20/2025Hypertension (ICD-10 - I10)01/20/2025 Wart (ICD-10 - B07.9)03/03/2024Spondylosis without myelopathy or radiculopathy, 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ICD-10 - M47.816)03/17/2024Knee pain, right (ICD-10 - M25.561) 04/06/2024Spondylosis without myelopathy or radiculopathy, 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ICD-10 - M47.816)05/15/2024Knee pain, right (ICD-10 - M25.561) see n Dr Hutton - nurse [phone] feel like infection coming back 06/15/2024Spondylosis without myelopathy or radiculopathy, 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ICD-10 - M47.816)07/15/2024Edema (ICD-10 - R60.9)07/15/2024Hypertension (ICD-10 - I10) 08/14/2024Edema (ICD-10 - R60.9)09/14/2024Hypertension (ICD-10 - I10)inc water pil to bid for09/14/2024Edema (ICD-10 - R60.9)11/17/2024Hypertension (ICD-10 - I10)11/17/2024Hypercholesterolemia (ICD-10 - E78.00)5Cough (ICD-10 - R05.9)11/17/2024UTI (urinary tract infection) (ICD-10 - N39.0)12/17/2024 Hypercholesterolemia (ICD-10 - E78.00)11/17/2024Well adult (ICD-10 - Z00.00) 07/15/2024Encounter for medication review (ICD-10 - Z79.899)04/06/2024ute non- recurrent sinusitis, unspecified location (ICD-10 - J01.90)04/03/2024Nasal congestion (ICD-10 - R09.81) Plan Of Treatment Pending Test Test Name Order Date CMP (COMPLETE METABOLIC PANEL) 4 UA (URINALYSIS, COMPLETE) 11/17/2024 CULTURE, STOOL 09/05/2022 HEMOGLOBIN A1C (GLYCO) 06/17/2023 HEMOGLOBIN A1C (GLYCO) 11/17/2024 INSULIN, TOTAL 11/17/2024 LIPID PANEL (CHOL/TRIG/HDL/LDL) 11/18/19 25 LIPID PANEL (CHOL/TRIG/HDL/LDL) 06/17/19 24 CBC WITH DIFF (EXP 12/2024) 06/17/2023 PSA, PROSTATE-SPECIFIC ANTIGEN 4 URIC ACID 06/17/2023 XR Chest PA and Lateral (Routine CXR) * 12/24/2022 BNP 07/15/2024 C. DIFF PCR 09/05/2022 CULTURE URINE 11/17/2024 GI PANEL (PCR) 09/05/2022 PROF 14(COMP METB) 07/15/2024 SED RATE WESTERGREN 03/16/2024 SPUTUM GRAM STAIN 12/24/2022 TESTOSTERONE, TOTAL 11/25/2023 TESTOSTERONE, TOTAL 11/21/2023 CTA CHEST WO W CON 12/01/2024 THYROID PANEL (T4/TSH/FREE T3) 5 THYROID PANEL (T4/TSH/FREE T3) 4 PSA, SCREENING 11/17/2024 CMP (COMP MET TORREZ) w/eGFR CKD-EPI 2024 CBC WITH DIFF 11/17/2024 Next Appt Details Provider Name:Abelardo Packer, 03:30:00 PM, [address] [place], [address], Provider Name:Abelardo Packer, 10:00:00 AM, [address] [place], [address], Insurance Providers Payer Name Payer Address Payer Phone Subscriber Number Group Number Insured Name Patient Relationship to Insured Coverage Start Date Coverage End Date [employer] [address] [address] [place] [phone] [id number] Lena Mari Spouse - patient is the spouse of the insured Medications Administered Medication Instructions Date of Administration Dosage Notes Kenalog-40 tc001Vwdveidkz Ujzxmjhdbwtv22/10/202460 oc76Fqdyzqerumhm Citrate lq15Ikeayysr04/28/20231 g Medical (General) History Medical History History ICD Code Benign essential tremor G25.0 Arthritis M19.90 Hypogonadism male E29.1 DDD (degenerative disc disease), lumbosa cral M51.37 Acute pulmonary embolism I26.99 Bilateral kidney stones N20.0 Apnea, sleep G47.30 Surgical History Surgery Date(Month/Year) knee surgery 04/19 ankle surgery 05/2014 gastric sleeve 05/16 Lumbar and sacral fusion 12/07/22 Kidney stone 10/2024 Hospitalization History Reason Date(Month/Year) see above
--- OUTSIDE RECORDS SUMMARY | 2025-02-15 16:52 | XMS_ITS | Patient Health Record ---
Author Organization [facility] Address [address] [place] [address] Care Team Providers Care Inseamer Name Role Phone Rakesh Quiñones Unavailable [phone] UNASSIGNED, UNASSIGNED Unavailable Unavailab le Allergies Allergen [...] Problem Status W/U Status Risk Notes Problem Spinal stenosis of l umbar region (99114780) Spinal stenosis, lumbosacral region (M48.07) ActiveconfirmedProblemNeurogenic claudication (089049066)Spinal stenosis of lumbar region with neurogenic claudication (M48.062)Activeconfirmed Plan Of Treatment No Information Insurance Providers Payer Name Payer Address Payer Phone Subscriber Number Group Number Insured Name Patient Relationship to Insured Coverage Start Date Coverage End Date [facility] (Health Mgmt) NO LONGER ACTIVE 2024 [place] [id number] Flavio SIMENTAL - patient is the [id number] 2019 Medical (General) History Medical History History ICD Code Diabetes: Yes High Blood Pressure: YesAnxiety: YesSleep apnea: YesCPAP Machine: YesDo you use the CPAP machine? NoKidney trouble Yes, Kisney StonesDrug Allergies: YesSurgical History Surgery Date(Month/Year) abdominal procedure 04/2020 Kidney stone removal 02/2020 L4-S1 laminectomy, PSF 06/2019 ANKLE SPURS 2018 BILATERAL KNEE ARTHOPLASTY [phone] Hospitalization History Reason Date(Month/Year) L-SPINE BULGING DISC 2019
--- OUTSIDE RECORDS SUMMARY | 2025-02-15 16:52 | XMS_ITS | Clinical Summary ---
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 Name Role Phone None, Provided MD Primary Care Provider Unavaila ble Allergies No known active allergies Medications MedicationSigDispense QuantityRefillsLast FilledStart DateEnd DateStatus bumetanide (Bumex) 1 mg tablet Take 1 tablet by mouth in the morning.Active doxazosin (Cardura) 4 mg tablet Take 4 mg by mouth in the morning.Active famotidine (Pepcid) 20 mg tablet in the morning.11/07/2021ctive ferrous sulfate 325 (65 Fe) MG tablet Take 1 tablet by mouth in the morning and 1 tablet in the evening.11/07/2021 Active irbesartan (Avapro) 300 mg tablet Take 1 tablet by mouth in the morning.Active pantoprazole (ProtoNix) 40 mg EC tablet Take 40 mg by mouth before breakfast.Active pioglitazone (Actos) 15 mg tablet Take 30 mg by mouth in the morning.Active simvastatin (Zocor) 10 mg tablet Take 10 mg by mouth at bedtime.05/05/2020ctive sucralfate (Carafate) 1 gram tablet Take 1 g by mouth in the morning, at noon, in the evening, and at bedtime. 08/18/2021ctive testosterone cypionate (Depo-Testosterone) 200 mg/mL injection testosterone cypionate 200 mg/mL intramuscular oil administer 3/4 mL INTRAMUSCULARLY EVERY 2 (TWO) weeksActive tizanidine HCl (ZANAFLEX ORAL) Take 4 mg by mouth at bedtime.Active tamsulosin (Flomax) 0.4 mg 24 hr capsule Take 0.4 mg by mouth in the morning.Active LORazepam (Ativan) 1 mg tablet Take 1 mg by mouth every 6 (six) hours if needed for anxiety.Active metoclopramide (Reglan) 10 mg tablet Take 10 mg by mouth if needed.Active omeprazole (PriLOSEC) [address] capsule Take 20 mg by mouth in the morning and at bedtime.01/16/2022ctive traZODone (Desyrel) 150 mg tablet Take 150 mg by mouth at bedtime.04/03/2022ctive ketoconazole (NIZOral) 2 % cream 1 application. every 12 (twelve) hours.06/12/2022ctive doxycycline (Vibramycin) 100 mg capsule Take 100 mg by mouth in the morning and at bedtime. Take with at least 8 ounces (large glass) of water, do not lie down for 30 minutes afterActive oxyCODONE-acetaminophen (Percocet) 10-325 mg tablet Take 1 tablet by mouth if needed for severe pain (8-10 pain score).Active Active Problems ProblemNoted DateDiagnosed DateHistory of removal of joint prosthesis of right knee due to woxhdmugm41/11/2023 Overview (03/07/2022): Added automatically from request for surgery [id number] Chronic knee pain 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01/05/2022hronic low back pain01/05/2022History of kidney kcdlhf5201/05/2022History of pulmonary frghudey85/11/2022Infection of prosthetic knee joint01/02/2022Encounter for pre- operative laboratory mkydvyg8712/27/2021HTN (hypertension)2Diabetes mellitus, type Gastroesophageal reflux zqxlmtz7012/27/2021Morbid eosowxt25/02/2022OSA (obstructive sleep apnea)12/27/20215831Bgfpfpj61/02/2022Chronic kidney gtcvnvi4312/27/2021hronic instability of right knee12/01/2021 Overview (12/01/2021): Added automatically from request for surgery [id number] Loose right total knee dpzemriphzcq75/07/2022 Overview (12/01/2021): Added automatically from request for surgery [id number] Quadriceps hfiqzwsx73/07/2022 Overview (12/01/2021): Added automatically from request for surgery [id number] Lumbosacral lybkwwyjtygcf37/07/2022 Overview (12/01/2021): Added automatically from request for surgery [id number] Acute renal wtwbjve9008/18/2021pinal stenosis, lumbar region, with neurogenic zeqvaklnipgq58/23/2022 Overview (01/05/2022): Added automatically from request for surgery [id number] Pulmonary embolism with acute cor ylmrmapie39/22/2022Recurrent pulmonary emboli 07/16/2021/P laparoscopic sleeve audxqpkfaji17/30/2022Degeneration of lumbosacral intervertebral disc03/28/2021 Overview (01/05/2022): Added automatically from request for surgery [id number] Other specified inflammatory spondylopathies, lumbar xmldjn4203/28/2021 Overview (01/05/2022): Added automatically from request for surgery [id number] Dyspnea and respiratory mrjaqwfbwse40/01/3247Tttzwpzxkbj39/01/2021dema 02/02/2020Corneal edema, vhuqgarbnrx99/16/2014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 Family History Medical HistoryRelationNameCommentsAlcohol abuseFatherEsophageal cancerFather DementiaMotherRelationNameStatusCommentsFatherDeceasedMotherAlive Social History Tobacco UseTypesPacks/DayYears UsedDateSmoking Tobacco: NeverSmokeless Tobacco: Never Tobacco Cessation:Counseling Given: Not Answered Alcohol UseStandard Drinks/WeekCommentsNever0 (1 standard drink = 0.6 oz pure alcohol)[facility] UtilitiesAnswerDate RecordedIn the past 12 months has the [place], gas, oil, or water mo9 ([employer]) threatened to shut off services in your home?No 05/18/2024Humiliation, Afraid, Rape, and Kick questionnaireAnswerDate Recorded Within the last year, have you been afraid of your partner or ex-partner?No 03/28/2022Emotionally AbusedNot on file03/28/2022hysically AbusedNot on file 03/28/2022Sexually AbusedNot on file03/28/2022Social Connection and Isolation PanelAnswerDate RecordedIn a typical week, how many times do you talk on the phone with family, friends, or neighbors?More than three times a week12/01/2021 How often do you get together with friends or relatives?Once a week12/01/2021How often do you attend moravian or catholic services?Never12/01/2021o you belong to any clubs or organizations such as moravian groups, unions, fraternal or athletic groups, or school groups?No12/01/2021How often do you attend meetings of the clubs or organizations you belong to?Never12/01/2021re you , , , , never , or living with a partner?Zhcsyyw4212/01/2021 AUDIT-CAnswerDate RecordedQ1: How often do you have a drink containing alcohol? Never12/01/2021Q2: How many drinks containing alcohol do you have on a typical day when you are drinking?Patient does not drink12/01/2021Q3: How often do you have six or more drinks on one occasion?Never12/01/2021verall Financial Resource Strain (CARDIA)AnswerDate RecordedHow hard is it for you to pay for the very basics like food, housing, medical care, and heating?Not hard at all 03/28/2022HQ-2AnswerDate RecordedPatient Health Questionnaire-2 Score0 05/18/2024[facility] [place] [facility] Occup[facility] - Occupational Stress QuestionnaireAnswerDate RecordedDo you feel stress - tense, restless, nervous, or anxious, or unable to sleep at night because yourmind is troubled all the time - these days?Not at all12/01/2021Exercise Vital SignAnswerDate RecordedOn average, how many days per week do you engage in moderate to strenuous exercise (like a brisk walk)?0 days12/01/2021n average, how many minutes do you engage in exercise at this level?20 min12/01/2021Hunger Vital SignAnswerDate Recorded Within the past 12 months, you worried that your food would run out before you got the money to buymore.Never true03/28/2022Ran Out of Food in the Last YearNot on file03/28/2022RAPARE - TransportationAnswerDate RecordedIn the past 12 months, has lack of transportation kept you from medical appointments or from getting medications?No03/28/2022Lack of Transportation (Non-Medical)Not on file 03/28/2022Housing Stability Vital SignAnswerDate RecordedUnable to Pay for Housing in the Last YearNot on file03/28/2022Number of Places Lived in the Last YearNot on file03/28/2022In the last 12 months, was there a time when you did not have a steady place to sleep or slept in ashelter (including now)?No 03/28/2022UT Safety & EnvironmentAnswerDate RecordedFear of Current or Ex-PartnerNot on file04/18/2023Emotionally AbusedNot on file04/18/2023hysically AbusedNot on file04/18/2023Sexually AbusedNot on file04/18/2023hysically or Sexually AbusedNot on file04/18/2023Sex and Gender InformationValueDate Recorded Sex Assigned at BirthNot on fileLegal MvdXzqq6808/23/2021 11:50 PM EDTGender OonazfleAzsu54/23/2025 3:06 PM EDTSexual OrientationChoose not to disclose 06/17/2024 3:06 PM EDT Last Filed Vital Signs Vital SignReadingTime TakenCommentsBlood Ghpqbiip874/7308 11:10 AM EDT Edxff990010/12/2022 11:10 AM TGTWroprecctqa57.6 ??C (97.8 ??F)10/12/2022 9:36 AM EDTRespiratory Psoy239610/12/2022 11:10 AM EDTOxygen Czhysvdknk41%10/12/2022 11:10 AM EDTInhaled Oxygen Concentration--Irabet395 kg (270 lb)05/18/2024 1:00 PM EDT Xnhgqy721.3 cm (5' 9 )05/18/2024 1:00 PM EDTBody Mass Index39.8705/18/2024 1:00 PM EDT Plan of Treatment DateTypeDepartmentCare Team (Latest Contact Info)Bpkooaajmtc41/17/2026 2:30 PM EDTFollow-Up [facility] [address] [place] [address] [place] [phone] Kaleb Helm MD [address] [place] [address] [place] [address] Health MaintenanceDue DateLast DoneCommentsCT Yiavrnvmrlcl86/17/1964Colonoscopy 1963Colorectal Cancer Vksvjljfo62/17/1964FIT-DNA1963FIT1963 FOBT1963Medicare Annual Wellness (AWV)1965 3643Wcooajyljsdad04/17/1964 Diabetes: Retinopathy Igmvvuyzi63/17/1974Diabetes: Urine Protein Screening 09/10/1982Pneumococcal Vaccine: Pediatrics (0 to 5 Years) and At-Risk Patients (6 to 64 Years) (1 of 2 - PCV)09/10/1982Adult Jopcvch8109/10/1985Zoster Vaccines (1 of 2)09/10/2013Diabetes: Hemoglobin A1C//2COVID-19 Vaccine ( - season)2024Influenza Vaccine (#1)2024Depression Pdyhftjom52/24/82101705/18/2024HIB VaccinesAged OutNo longer eligible based on patient's age to complete this topicHPV VaccinesAged OutNo longer eligible based on patient's age to complete this topicIPV VaccinesAged OutNo longer eligible based on patient's age to complete this topicMeningococcal B VaccineAged OutNo longer eligible based on patient's age to complete this topicMeningococcal VaccineAged OutNo longer eligible based on patient's age to complete this topic Rotavirus VaccinesAged OutNo longer eligible based on patient's age to complete this topic Medical Devices ImplantedTypeAreaManufacturerDevice IdentifierShelf Expiration DateModel / Serial / LotCement,Bone,R,1x40us - [id number] Implanted:Qty: 4 on 12/27/2021 by Kaleb Helm MD at [facility] CementRight: KoiwCLBWCE74/31/[id number] / / [id number]:For third cement, only enclosed solution was used. MIXED WITH 6G VANCOMYCIN (LOT [id number], 06/2024; LOT [id number], 05/2024; LOT [id number], 05/2024) 4.8G TOBRAMYCIN (LOT [id number], 02/2023; LOT [id number], 02/2023) Fourth cement implanted without antibiotics.Cement,Bone,R,1x40us - [id number] Implanted:Qty: 2 on 03/28/2022 by Kaleb Helm MD at [facility] CementRight: [id number] / / [id number] Tibial Insert Wedge Implanted:Qty: 1 on 12/27/20[facility] IlekEpfrm57/28/2026RKINMD / / [id number]:EQUIPMENT OILER OSTEOREMEDIESRemedy Stemmed Tibial Component Implanted:Qty: 1 on 12/27/2021 [facility] DuofWytwt05/31/2025RSKTMD / / [id number]:EQUIPMENT OILER OSTEOREMEDIESRemedy Stemmed Femoral Component Implanted:Qty: 1 on 12/27/2021 [facility] NdaoFqogk78/28/2025RSKFMD / / [id number]:MANUFACTURED BY OSTEOREMEDIESRemedy Stem Extension Component Implanted:Qty: 2 on 12/27/2021 [facility]: YpmgRwqoj47/31/[id number] / / [id number]:MANUFACTURED BY [employer] Revision Femoral Distal Augment Cemented Implanted:Qty: 1 on 03/28/2022 by [facility] [id number] / / [id number] Revision Stem Extension Implanted:Qty: 1 on 03/28/2022 by [facility] [id number] / / [id number] Revision Femoral Distal Augment Cemented Implanted:Qty: 1 on 03/28/2022 by [facility] [id number] / / [id number] Revision Femur Cemented Implanted:Qty: 1 on 03/28/2022 by [facility] [id number] / / [id number] Revision Tibial Augment Cemented Implanted:Qty: 1 on 03/28/2022 by [facility]: [id number] / / [id number] Revision Vivacit-E Highly Crosslinked Polyethylene Articular Surface Implanted:Qty: 1 on 03/28/2022 by [facility]: [id number] / / [id number] Revision Tibial Augment Cemented Implanted:Qty: 1 on 03/28/2022 by [facility]: [id number] / / [id number] Revision Tibia Fixed Cemented Implanted:Qty: 1 on 03/28/2022 by [facility]: [id number] / / [id number] Revision Stem Extension Implanted:Qty: 1 on 03/28/2022 by [facility]: [id number] / / [id number] Procedures Procedure NamePriorityDate/TimeAssociated DiagnosisCommentsHEMOGLOBIN B6QCtkijjx 12/01/2021 12:11 PM EDT 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, initial encounter from Last 3 Months or Most Recently Relevant to Health Maintenance Results * Hemoglobin A1c (12/01/2021 12:11 PM EDT)ComponentValueRef RangeTest Method Analysis TimePerformed AtPathologist SignatureHemoglobin A1C5.84.0 - 6.0 % 12/04/2021 12:01 PM [facility]Estimated Average Glucose 119.76mg/dL12/04/2021 12:01 PM [facility]Specimen (Source) Anatomical Location / LateralityCollection Method / VolumeCollection Time Received TimeBloodVenous blood specimen / UnknownVenipuncture / Unknown 12/01/2021 12:11 PM EDT1 12:11 PM EDT Narrative Authorizing ProviderResult TypeResult StatusVithal Alicja DUARTE BLOOD ORDERABLESFinal ResultPerforming OrganizationAddressCity/State/ZIP CodePhone Number [facility] [address] [place] [address] from Last 3 Months or Most Recently Relevant to Health [place] [address] Advance Directives * Full Code (Latest Code Status on File) Date ActivatedDate InactivatedComments03/28/2022 2:09 PM2 7:53 PM * Full Code Date ActivatedDate StdwegahqbsUxmmmosh34/2/2022 12:14 PM01/02/2022 3:46 PM Care Teams Team MemberRelationshipSpecialtyStart DateEnd Date None, Provided, PCP - General09/04/22
== END 2025-02-15 16:48 | disposition home or self-care (01) ==
LOC: RAD 16:48
PROVIDERS: PCP Family Medicine; Visit Provider Family Medicine
DX: M53.3 Sacrococcygeal disorders, not elsewhere classified (principal)
CPT/HCPCS: 72220